=== PATIENT | female | born 1950 | race Caucasian/White ===

== ENCOUNTER 2023-10-13 06:52 | Outpatient (OUT) | payer MEDICARE, BC, SELFPAY ==
--- NOTE | 2023-10-13 09:05 | CA_ITS ---
Patient Name: HARJIT ULLOA MR#: [id number] : 1950 Exam Date: 10/13/2023 Ordering Doctor: ANA SALVADOR ECHOCARDIOGRAM REPORT PROCEDURE: CA ECHO LIMITED INDICATIONS: Heart failure with reduced ejection fraction COMPARISON: None. DESCRIPTION: Limited ECHOCARDIOGRAM Real-time transthoracic echocardiography with 2D and M-mode performed. QUALITY: Technical quality was good. 65 , 115#, BSA 1.56 m2 LEFT VENTRICLE: Normal chamber size. Normal left ventricular wall thickness. LV EF: Normal left ventricular systolic function is mildly reduced; visually estimated ejection fraction is 40 to 45%. The base of the inferior wall is akinetic. LEFT ATRIUM: Severe dilatation. RIGHT ATRIUM: Severe dilatation. RIGHT VENTRICLE: Normal chamber size. Normal systolic function. TRICUSPID VALVE: Normal mobility and thickness. MITRAL VALVE: Normal mobility and thickness. There is no mitral annular calcification. AORTIC VALVE: Normal trileaflet appearance. No visible sclerosis. Normal leaflet mobility. AORTIC ROOT: Normal diameter and appearance. PULMONIC VALVE: Normal thickness and mobility. PERICARDIUM: No evidence of pericardial effusion. IVC: IVC is dilated (2.2 cm), does not fully collapse. CONCLUSION: 1. Global left ventricular systolic function is mildly reduced; visually estimated ejection fraction is 40 to 45% 2. Segmental wall motion abnormalities are seen 3. Normal right ventricular size and systolic function 4. Biatrial enlargement A limited echocardiogram was performed Adult Echocardiography Procedure Report Left Ventricle LVEDD (3.7 - 5.6 cm): 5.04 cm LVESD (2.2 - 4.0 cm): 3.87 cm LVIVS thickness (0.6 - 1.2 cm): 0.72 cm LVPW thickness (0.5 - 1.0 cm): 0.91 cm LVOT Max Gradient: 1.29 mm[Hg] LVOT Area (cm2): 0.57 m/s Peak Velocity (LVOT): 0.57 m/s Mean Velocity (LVOT): 0.37 m/s LVOT Diameter 2.21 cm Left Atrium LA Volume Index (2D A2C): 62.05 ml/m2 Left Atrium Systolic Dimension: 3.33 cm Mitral Valve Mitral Valve E-Wave Peak Velocity: 0.79 m/s Right Ventricle Aorta AO Root Diam: 2.74 cm Ascending Ao Diam: 2.08 cm Aortic Valve AoV Area (Peak Tom): 2.07 cm2, 2.07 cm2 AoV Area (VTI): 1.99 cm2, 1.99 cm2 Peak Velocity(Antegrade Flow): 1.05 m/s Peak Gradient(Antegrade Flow): 4.43 mm[Hg] Mean Velocity(Antegrade Flow): 0.71 m/s Mean Gradient(Antegrade Flow): 2.26 mm[Hg] Velocity Time Integral: 19.28 cm Tricuspid Valve Peak Velocity (Regurgitant Flow): 3.17 m/s, 2.99 m/s, 2.96 m/s Pulmonic Valve Peak Velocity: 0.76 m/s Peak Gradient: 2.88 mm[Hg], 1.80 mm[Hg] Right Atrium Right Atrium Systolic Pressure: 53.96 ml, 53.96 ml Dictated by: Dani Dickerson M.D. on 10/13/2023 at 12:36 Approved by: Dani Dickerson M.D. on 10/13/2023 at 12:39
== END 2023-10-13 06:53 | disposition home or self-care (01) ==
LOC: CARD 06:59
PROVIDERS: PCP Family Medicine
DX: I50.20 Unspecified systolic (congestive) heart failure (principal); I25.10 Atherosclerotic heart disease of native coronary artery without angina pectoris
CPT/HCPCS: 93306; 93308

== ENCOUNTER 2023-10-15 16:31 | Emergency (ER) | payer MEDICARE, BC, SELFPAY ==
[2023-10-15] VITALS (9 sets, daily range): BP systolic 114–136; BP diastolic 67–100; PULSE 89–115; RESP 16–25; TEMP 36.8; O2SAT 96–100; BMI 18.6
--- NOTE | 2023-10-15 16:36 | ECG_ITS ---
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[employer]: : 1950 Requested By: Order Number: [id number] Reading MD: BEVERLY DOMINGO Measurements Intervals [place] Rate: 112 P: -[id number] ND: -[id number] QRS: 94 QRSD: 80 T: -55 QT: 300 QTc: 366 Interpretive Statements 30588 Atrial fibrillation with rapid ventricular response with aberrant conduction, or ventricular premature complexes [id number] depression, probably digitalis effect [id number] & Twave abnormality, probably digitalis effect 7102 Moderate right axis deviation 9150 abnormal ECG No previous ECG available for comparison Electronically Signed On 10-16-2023 6:38:31 EST by BEVERLY DOMINGO
--- OUTSIDE RECORDS SUMMARY | 2023-10-15 16:41 | XMS_ITS | CCD ---
Author Name Unknown Address [address] [place] [address] Organization [facility] Care Team Providers Care Video Game Technician Name Role Phone Peggy Nazario Primary Care Physician [phone] Micheline Sorto MD Unavailable Johan Henriquez MD Unavailable Peggy Nazario Primary Care Provider Peggy Nazario MD Unavailable Peggy Nazario MD Primary Care Provider [phone] Alea Harley MD Unavailable Alea Harley MD Unavailable PEGGY NAZARIO Attending Unavailable PEGGY NAZARIO Attending Unavailable CRUZ COVINGTON Attending Unavailable PEGGY NAZARIO Attending Unavailable PEGGY NAZARIO Attending Unavailable PEGGY NAZARIO Attending Unavailable RODOLFO BOO Attending Unavailable VÍCTOR KC Referring Unavailable Koby Masterson Attending Unavailable Jeff Cross Attending Unavailable Micheline BROOKS Referring Unavailable Micheline BROOKS Attending Unavailable Micheline BROOKS Attending Unavailable Micheline BROOKS R Attending Unavailable Micheline BROOKS R Referring Unavailable Armen, Parveen SElise Attending Unavailable Armen, Parveen SElise Attending Unavailable Koby Masterson Attending Unavailable Jeff Cross Attending Unavailable Layton Crawford Attending Unavailable NONE, XXXX Referring Unavailable Johan HENRIQUEZ Admitting Unavailable Johan HENRIQUEZ Attending Unavailable Johan HENRIQUEZ Admitting Unavailable Johan HENRIQUEZ Consulting Unavailable Johan HENRIQUEZ Attending Unavailable Johan HENRIQUEZ Referring Unavailable Johna HENRIQUEZ Consulting Unavailable Johan HENRIQUEZ Consulting Unavailable BROOKS, Micheline R Attending Unavailable BROOKS, Micheline R Referring Unavailable BROOKS, Michelien R Admitting Unavailable BROOKS, Micheline R Referring Unavailable BROOKS, Micheline R Admitting Unavailable BROOKS, Micheline R Attending Unavailable NazarioPeggy fernandez D Admitting Unavailable Nazario, Peggy Mcmillan Attending Unavailable Aravind, Peggy Mcmillan Referring Unavailable Nahid SERRATO Attending Unavailable Eb Goff Consulting Unavaila ble DO Noman PATTON R Admitting Unavailabl MD Eb Salgado Consulting Unava ilable Eb Goff Consulting Unavaila ble [facility], XXXX Consulting Unavailable ANA RIVAS Attending Unavailable NAZARIO, PEGGY DONOHUE Primary Care Unavailabl e ALEA HARLEY Referring Unavailable LE PANIAGUA Attending Unavailable AMINA PETERSEN Admitting Unavailable NAZARIO, PEGGY JAYDE Primary Care Unavailabl e ALEA HARLEY Referring Unavailable NAZARIO, PEGGY JAYDE Primary Care Unavailabl e NAZARIO, PETER JAYDE Primary Care Unavailabl e NITHYA, MICHELINE Referring Unavailable NITHYA, MICHELINE Attending Unavailable NAZARIO, [facility] JAYDE Primary Care Unavailabl e NITHYA, MICHELINE Referring Unavailable NAZARIO, PETER JAYDE Primary Care Unavailabl e NITHYA, MICHELINE Referring Unavailable EZRA GLEZM S Admitting Unavailable YECENIA GLEZ S Attending Unavailable NAZARIO, [facility] JAYDE Primary Care Unavailabl e GIANNI VILLALBA Attending Unavailable NAZARIO, [facility] JAYDE Primary Care Unavailabl e NITHYA, MICHELINE Referring Unavailable NAZARIO, PEGGY JAYDE Primary Care Unavailabl e ALEA HARLEY Attending Unavailable NITHYA, MICHELINE Referring Unavailable NAZARIO, [facility] JAYDE Primary Care Unavailabl e NITHYA, MICHELINE Referring Unavailable NAZARIO, [facility] Primary Care Unavailabl e NITHYA, MICHELINE Referring Unavailable VASAVADA, RAPHAEL P Referring Unavailable NAZARIO, PETER JAYDE Primary Care Unavailabl e VASAVADA, RAPHAEL P Attending Unavailable NAZARIO, [facility] JAYDE Primary Care Unavailabl e ALEA HARLEY Referring Unavailable Allergies Allergy Classification Reported Allergen(s) Allergy Type Date of Onset Reaction(s) Facility (20 sources) Cephalexin; Translations: [cephalexin] Drug Allergy 3 GI intolerance, Unknown [facility] (20 sources) Egg; Translations: [Eggs] Food allergy Unknown (qualifier value) [facility] (20 sources) Meperidine; Translations: [meperidine] Drug Allergy 0 Syncope (disorder), Other: See Comments [facility] (20 sources) Morphine; Translations: [morphine] Drug Allergy 3 Unknown [facility] (20 sources) Sulfonamides (Antibiotic); Translations: [sulfa drugs] Drug allergy Nausea [facility] (2 sources) Aspirin; Translations: [ASPIRIN] Drug Allergy 0 Other: See Comments [facility] (9 sources) Latex; Translations: [LATEX] Drug Intolerance 3 Rash, Hives [facility] (5 sources) Aluminum aspirin Drug Allergy 0 [facility] (5 sources) Amoxicillin Drug Allergy 3 Diarrhea [facility] (5 sources) Erythromycin Drug Allergy 3 Unknown [facility] (5 sources) Latex Propensity to adverse reactions 3 Hives, Rash [facility] (5 sources) Meperidine Drug Allergy 3 Unknown [facility] (12 sources) Sulfonamides (Antibiotic) Drug Allergy 3 GI intolerance, Intolerance [facility] (5 sources) WHEAT DEXTRIN Drug Allergy 3 [facility] (5 sources) WHEAT DEXTRIN Drug Allergy 3 [facility] (5 sources) Eggs Or Egg-Derived Products Drug Allergy 3 [facility] (8 sources) egg extract; Translations: [EGG] Drug Allergy 4 Intolerance, GI Upset [facility] (1 source) ALLERGIES NOT ON FILE; Translations: [ALLERGIES NOT ON FILE] Propensity to adverse reactions (disorder) [facility] (1 source) Meperidine; Translations: [Demerol HCl] Drug Allergy [facility] (1 source) Sulfonamides (Antibiotic); Translations: [SULFA (SULFONAMIDE ANTIBIOTICS)] Propensity to adverse reactions to drug (disorder) 3 [facility] Rep[facility] Medications Current Medications Medication Drug Class(es) Dates Sig (Normalized) Sig (Original) amoxicillin 500 mg / clavulanate 125 mg oral tablet (2 sources) Penicillin-class Antibacterial Start: 07-19-2023 End: 08-02-2023 Augmentin 500 mg-125 mg Tab 1 tab(s), Oral, q24hr for 14 day(s), 14 tab(s), Refill(s) 0, [facility] #[id number], 165, cm, 07/19/23 15:21:00 EST, Height/Length Dosing, 54.4, kg, 07/19/23 15:21:00 EST, Weight Dosing Start Date: 07/19/23 Stop Date: 08/02/23 Status: Ordered apixaban 5 mg oral tablet (20 sources) Factor Xa Inhibitor Start: 07-11-2023 take 1 tablet by mouth twice daily Eliquis 5 mg oral tablet 5 mg = 1 tab(s), Oral, BID, # 60 tab(s), Refills(s) 0, [id number], 165, cm, 07/02/23 21:30:00 EST, Height/Length Dosing, 55.7, kg, 07/02/23 21:30:00 EST, Weight Dosing Start Date: 07/11/23 Status: Ordered Start: 07-11-2023 take 1 tablet by antonio twice daily Eliquis 5 mg oral tablet 5 mg = 1 tab(s), Oral, BID, # 60 tab(s), Refills(s) 0, [id number], 165, cm, 07/02/23 21:30:00 EST, Height/Length Dosing, 55.7, kg, 07/02/23 21:30:00 EST, Weight Dosing Start Date: 07/11/23 Status: Ordered Start: 07-11-2023 take 1 tablet by antonio th twice daily Eliquis 5 mg oral tablet 5 mg = 1 tab(s), Oral, BID, # 60 tab(s), Refills(s) 0, Pharmacy: [facility] #[id number], 165, cm, 07/02/23 21:30:00 EST, Height/Length Dosing, 55.7, kg, 07/02/23 21:30:00 EST, Weight Dosing Start Date: 07/11/23 Status: Ordered Start: 07-11-2023 take 1 tablet by antonio twice daily Eliquis 5 mg oral tablet 5 mg = 1 tab(s), Oral, BID, # 60 tab(s), Refills(s) 0, [id number], 165, cm, 07/02/23 21:30:00 EST, Height/Length Dosing, 55.7, kg, 07/02/23 21:30:00 EST, Weight Dosing Start Date: 07/11/23 Status: Ordered Comment on above: Take 1 tablet by antonio th two times a day. aspirin 81 mg delayed release oral tablet (8 sources) Platelet Aggregation Inhibitor, Nonsteroidal Anti-inflammatory Drug Start: 3 take 1 tablet by mouth once daily aspirin 81 mg Oral EC Tab 81 mg = 1 tab(s), Oral, Daily, # 60 tab(s), Refills(s) 0, [id number], 165, cm, 07/02/23 21:30:00 EST, Height/Length Dosing, 55.7, kg, 07/02/23 21:30:00 EST, Weight Dosing Start Date: 07/05/23 Status: Ordered atorvastatin 40 mg oral tablet (20 sources) HMG-CoA Reductase Inhibitor Start: 3 End: 5 take 1 tablet by mouth at bedtime Lipitor 40 mg Tab 40 mg = 1 tab(s), Oral, Bedtime, # 60 tab(s), Refills(s) 0, [id number], 165, cm, 07/02/23 21:30:00 EST, Height/Length Dosing, 55.7, kg, 07/02/23 21:30:00 EST, Weight Dosing Start Date: 07/05/23 Status: Ordered Comment on above: Take 1 tablet by antonio th daily at bedtime. carvedilol 3.125 mg oral tablet (20 sources) alpha-Adrenergic Yolette, beta-Adrenergic Yolette Start: 4 take 1 tablet by mouth twice daily at mealtime carvedilol (COREG) 12.5 mg tablet Take 1 tablet by mouth two times a day with meals. 180 tablet 1 08/31/2023 Active Start: 07-05-2023 End: 10-19-2023 take 1 tablet by mouth twice daily carvedilol 3.125 mg Tab 3.125 mg = 1 tab(s), Oral, BID, X 14 day(s), # 28 tab(s), Refills(s) 0, Pharmacy: [facility] #[id number], 165, cm, 10/05/23 18:07:00 EST, Height/Length Dosing, 50.3, kg, 10/05/23 18:07:00 EST, Weight Dosing Start Date: 10/05/23 Stop Date: 10/19/23 Status: Ordered Comment on above: Take 1 tablet by antonio th two times a day with meals. Take 12.5 mg by mout h. dicyclomine hydrochloride 10 mg oral capsule (1 source) Anticholinergic Start: 07-01-20 End: 07-08-20 take 1 capsule by mouth four times daily Bentyl 10 mg Cap 10 mg = 1 cap(s), Oral, QID, X 7 day(s), # 14 cap(s), Refills(s) 0, Pharmacy: [facility] #[id number], 165, cm, 06/30/23 19:37:00 EST, Height/Length Dosing, 55.7, kg, 06/30/23 19:37:00 EST, Weight Dosing Start Date: 07/01/23 Stop Date: 07/08/23 Status: Ordered digoxin 0.125 mg oral tablet (20 sources) Cardiac Glycoside Start: 09-06-19 End: 12-05-19 take 0.5 tablet by mouth in the morning, then take 0.5 tablet by mouth once daily digoxin (Lanoxin) 125 MCG tablet Indications: Systolic congestive heart failure, unspecified HF chronicity (CMS/HCC) Take 0.5 tablets (62.5 mcg) by mouth in the morning. Take 1/2 a tab daily. 45 tablet 0 09/06/2023 12/05/2023 Active Start: 08-31-2023 digoxin (LANOX IN) 125 mcg (0.125 mg) tablet Take HALF tablet by mouth daily (not one complete tablet) 30 tablet 1 08/31/2023 Active Start: 07-05-2023 take 1 tablet by antonio th once daily digoxin 125 mcg (0.125 mg) Tab 125 mcg = 1 tab(s), Oral, Daily, # 60 tab(s), Refills(s) 0, Pharmacy: [facility] #[id number], 165, cm, 07/02/23 21:30:00 EST, Height/Length Dosing, 55.7, kg, 07/02/23 21:30:00 EST, Weight Dosing Start Date: 07/05/23 Status: Ordered Comment on above: Take HALF tablet by mouth daily (not one complete tablet) estradiol 0.1 mg/ml vaginal cream (11 sources) Estrogen Start: 04-26-2023 Estrace 0.1 mg/g Cream 0.5 gm, Vaginal, MonFri, 42.5 gm, Refill(s) 6 Start Date: 04/26/23 Status: Ordered Start: 03-20-2023 Estrace 0.1 mg /g Cream 1 gm, Vaginal, Once a day (at bedtime), 42.5 gm, Refill(s) 6, [facility], 165.1, cm, 01/28/23 21:34:00 EDT, Height/Length Dosing, 54.5, kg, 01/28/23 21:34:00 EDT, Weight Dosing Start Date: 03/20/23 Status: Ordered Start: 03-03-2022 estradiol 0.1 mg/g vaginal cream 1 gm, Vaginal, MonFri, # 42.5 gm, Refills(s) 6, Pharmacy: [facility], 165, cm, 03/03/22 10:04:00 EDT, Height/Length Dosing, 54, kg, 03/03/22 10:04:00 EDT, Weight Dosing Start Date: 03/03/22 Status: Ordered Start: 02-26-2021 estradiol 0.1 mg/g vaginal cream 1 gm, Vaginal, MonFri, # 42.5 gm, Refills(s) 6, Pharmacy: [facility], 165, cm, 02/23/21 13:24:00 EDT, Height/Length Dosing, 54, kg, 02/23/21 13:24:00 EDT, Weight Dosing Start Date: 02/26/21 Status: Ordered Start: 10-22-2012 estradiol 0.01 % (0.1 mg/g) vaginal cream Use a pea sized drop on finger, once every other day Tube 10/22/2012 Active Comment on above: Use a pea sized drop on finger, once every other day estradiol 0.1 mg/g vaginal cream (9 sources) Start: 03-03-2022 estradiol 0.1 mg/g vaginal cream 1 gm, Vaginal, MonFri, # 42.5 gm, Refills(s) 6, Pharmacy: [facility], 165, cm, 03/03/22 10:04:00 EDT, Height/Length Dosing, 54, kg, 03/03/22 10:04:00 EDT, Weight Dosing Start Date: 03/03/22 Status: Ordered Start: 02-26-2021 estradiol 0.1 mg/g vaginal cream 1 gm, Vaginal, MonFri, # 42.5 gm, Refills(s) 6, Pharmacy: [facility], 165, cm, 02/23/21 13:24:00 EDT, Height/Length Dosing, 54, kg, 02/23/21 13:24:00 EDT, Weight Dosing Start Date: 02/26/21 Status: Ordered furosemide 40 mg oral tablet (8 sources) Loop Diuretic Start: 07-05-2023 take 1 tablet by mouth once daily furosemide 40 mg Tab 40 mg = 1 tab(s), Oral, Daily, # 60 tab(s), Refills(s) 0, Pharmacy: [facility] #[id number], 165, cm, 07/02/23 21:30:00 EST, Height/Length Dosing, 55.7, kg, 07/02/23 21:30:00 EST, Weight Dosing Start Date: 07/05/23 Status: Ordered lisinopril 10 mg oral tablet (4 sources) Angiotensin Converting Enzyme Inhibitor Start: 09-26-2023 End: 12-25-2023 take 0.5 tablet by mouth once daily lisinopril (ZESTRIL) 10 mg tablet Indications: Non-rheumatic mitral regurgitation , Persistent atrial fibrillation (HCC) , Non-ischemic cardiomyopathy (HCC) , Chronic HFrEF (heart failure with reduced ejection fraction) (HCC) Take 0.5 tablets by mouth once daily. 45 tablet 0 09/26/2023 12/25/2023 Active Comment on above: Take 0.5 tablets by mouth once daily. LORazepam 1 mg oral tablet (20 sources) Benzodiazepine Start: 07-10-2023 End: 09-15-2023 LORazepam 1 mg Tab Refills(s) 0 Start Date: 07/19/23 Status: Ordered Start: 08-03-2011 take 1 tablet by antonio three times daily as needed for anxiety Ativan 0.5 mg Tab 0.5 mg = 1 tab(s), Oral, TID, PRN as needed for anxiety, Refills(s) 0 Start Date: 08/03/11 Status: Ordered Start: 12-14-2005 ATIVAN 0.5 MG TAB Take one(1) tablet two(2) times daily. 0 12/14/2005 Active Comment on above: Take one(1) tablet t wo(2) times daily. Take 1 mg by mouth e very 6 hours as needed for anxiety. losartan potassium 25 mg oral tablet (8 sources) Angiotensin 2 Receptor Yolette Start: 023 take 1 tablet by mouth once daily losartan 25 mg Tab 25 mg = 1 tab(s), Oral, Daily, # 60 tab(s), Refills(s) 0, Pharmacy: [facility] #[id number], 165, cm, 07/02/23 21:30:00 EST, Height/Length Dosing, 55.7, kg, 07/02/23 21:30:00 EST, Weight Dosing Start Date: 07/05/23 Status: Ordered omeprazole 40 mg delayed release oral capsule (5 sources) Proton Pump Inhibitor Start: End: take 1 capsule by mouth before mealtime omeprazole (PriLOSEC) [address] capsule Indications: Gastroesophageal reflux disease without esophagitis Take 1 capsule (40 mg) by mouth in the morning. Take before meals. Do not crush or chew.. 30 capsule 11 09/12/2023 09/11/2024 Active ondansetron 4 mg disintegrating oral tablet (5 sources) Serotonin-3 Receptor Antagonist Start: 023 take 1 tablet by mouth every eight hours as needed ondansetron ODT (Zofran-ODT) 4 MG disintegrating tablet Take 4 mg by mouth every 8 (eight) hours if needed. 0 07/01/2023 Active pantoprazole 40 mg delayed release oral tablet (4 sources) Proton Pump Inhibitor Start: End: take 1 tablet by mouth once daily pantoprazole DR (PROTONIX) 40 mg tablet Indications: Non-rheumatic mitral regurgitation , Persistent atrial fibrillation (HCC) , Non-ischemic cardiomyopathy (HCC) , Chronic HFrEF (heart failure with reduced ejection fraction) ([facility]) Take 1 tablet by mouth once daily. 90 tablet 0 09/26/2023 12/25/2023 Active Comment on above: Take 1 tablet by antonio th once daily. Tobramycin (1 source) Aminoglycoside Antibacterial Start: End: take 1 drop(s) into the eye(s) four times daily tobramycin ophthalmic 0.3% solution 1 drop(s), Eye-Both, QID for 7 day(s), 5 mL, Refill(s) 0, [facility] #[id number], 165, cm, 12/24/21 17:41:00 EDT, Height/Length Dosing, 54, kg, 12/24/21 17:41:00 EDT, Weight Dosing Start Date: 12/24/21 Stop Date: 12/31/21 Status: Ordered Zofran ODT 4 mg Tab-Dis (9 sources) Start: take 1 tablet by mouth every eight hours Zofran ODT 4 mg Tab-Dis 4 mg = 1 tab(s), Oral, q8hr, # 12 tab(s), Refills(s) 0, Pharmacy: [facility] #[id number], 165, cm, 06/30/23 19:37:00 EST, Height/Length Dosing, 55.7, kg, 06/30/23 19:37:00 EST, Weight Dosing Start Date: 07/01/23 Status: Ordered Completed/Discontinued Medications Medication Drug Class(es) Dates Sig (Normalized) Sig (Original) ciprofloxacin 500 mg oral tablet (7 sources) Quinolone Antimicrobial Start: 04-26-2023 Cipro 500 mg Tab 500 mg = 1 tab(s), Oral, As Directed, Patient to take 1 tab the day before procedure and the 2nd tab the day of procedure once completed, # 2 tab(s), Refills(s) 0, Pharmacy: [facility] #[id number], 165, cm, 04/26/23 15:23:00 EDT, Height/Length Dosing, 54.7, kg, 04/26/23 15:23:00 EDT, Weight Dosing Start Date: 04/26/23 Status: Ordered Start: 10-14-2022 take 1 tablet by antonio once daily Cipro 500 mg Tab 500 mg = 1 tab(s), Oral, Daily, Take 1 tablet the day before the procedure and 1 tablet after the procedure, # 2 tab(s), Refills(s) 0, Pharmacy: [facility], 165, cm, 10/03/22 14:34:00 EST, Height/Length Dosing, 54.7, kg, 10/03/22 14:34:00 E... Start Date: 10/14/22 Status: Ordered Start: 03-03-2022 take 1 tablet by antonio once daily Cipro 500 mg Tab 500 mg = 1 tab(s), Oral, As Directed, Take 1 tablet day before procedure, and then 1 tablet day of procedure after procedure, # 2 tab(s), Refills(s) 0, Pharmacy: [facility], 165, cm, 03/03/22 10:04:00 EDT, Height/Length Dosing, 54, kg, 02/12... Start Date: 03/03/22 Status: Ordered loperamide hydrochloride 2 mg oral capsule (1 source) Opioid Agonist Start: 10-24-2017 take 2 capsules by mouth once loperamide (IMODIUM) 2 mg cap(s) Indications: Screening for colon cancer Take 2 capsules by mouth one time only for 1 dose. Take one hour after last bowel movement 2 capsule 0 10/24/2017 Active Comment on above: Take 2 capsules by [facility] one time only for 1 dose. Take one hour after last bowel movement metoprolol 1 mg/mL Inj (1 source) Start: 07-07-2023 End: 07-07-2023 inject 5 mg intravenously once metoprolol 1 mg/mL Inj 5 mg = 5 mL, Injection, IV Push, Once, Stop date 07/07/23 10:02:18 AM EST, STAT, Start date 07/07/23 9:41:00 AM EST, 07/07/23 9:41:00 EST Start Date: 07/07/23 Stop Date: 07/07/23 Status: Completed polyethylene glycol 3350 92580 mg powder for oral solution (15 sources) Osmotic Laxative Start: 08-31-2023 polyethylene glycol 3350 17 gram/dose powder Take 17 g by mouth once daily as needed. Dissolve dose in 4 - 8 ounces of liquid and take as directed. 510 g 1 08/31/2023 Active Start: 07-05-2023 take 17 g by mouth once daily polyethylene glycol 3350 17 gram packet 17 gm, Oral, Daily, # 255 gm, Refills(s) 0, Pharmacy: [facility] #[id number], 165, cm, 07/02/23 21:30:00 EST, Height/Length Dosing, 55.7, kg, 07/02/23 21:30:00 EST, Weight Dosing Start Date: 07/05/23 Status: Ordered Comment on above: Take 17 g by mouth o nce daily as needed. Dissolve dose in 4 - 8 ounces of liquid and take as directed. spironolactone 25 mg oral tablet (12 sources) Aldosterone Antagonist Start: 08-31-19 End: 09-05-19 take 0.5 tablet by mouth once daily spironolactone (ALDACTONE) 25 mg tablet Take a half tablet by mouth once daily. 30 tablet 1 08/31/2023 Active Comment on above: Take a half tablet b y mouth once daily. tamsulosin hydrochloride 0.4 mg oral capsule (1 source) alpha-Adrenergic Yolette Start: 10-19-19 13 take 1 capsule by mouth once daily at bedtime tamsulosin 0.4 mg Cp24 Take 1 capsule by mouth daily at bedtime. 30 capsule 3 10/18/2012 Active Comment on above: Take 1 capsule by mo [facility] daily at bedtime. valsartan 80 mg oral tablet (6 sources) Angiotensin 2 Receptor Yolette Start: 08-31-19 End: 09-26-19 24 take 1 tablet by mouth once daily valsartan (DIOVAN) 80 mg tablet Take 1 tablet by mouth once daily. 90 tablet 1 08/31/2023 09/26/2023 Discontinued (Course of therapy completed) Comment on above: Take 1 tablet by antonio once daily. Problems Active Problems Problem Classification Problem Date Documented Da te Episodic/Chronic Abdominal pain (20 sources) Suprapubic pain; Translations: [Abdominal pain] Onset: 3 01-22-2020 Episodic Adjustment disorders (7 sources) Adjustment disorder with mixed anxiety and depressed mood; Translations: [Adjustment disorder with mixed anxiety and depressed mood] Onset: 4 08-29-2023 Chronic Anxiety disorders (20 sources) Anxiety; Translations: [Anxiety disorder] Onset: 3 01-23-2019 Chronic Cardiac dysrhythmias (13 sources) Unspecified atrial fibrillation; Translations: [Persistent atrial fibrillation] Onset: 3 Chronic Coagulation and hemorrhagic disorders (2 sources) Thrombophilia; Translations: [Other thrombophilia] 09-26-2023 Chronic Congestive heart failure; nonhypertensive (3 sources) Acute systolic heart failure; Translations: [Acute systolic (congestive) heart failure] Onset: 3 Chronic Coronary atherosclerosis and other heart disease (1 source) Coronary atherosclerosis; Translations: [Atherosclerotic heart disease of [place] coronary artery without angina pectoris] Onset: 3 Chronic E Codes: Adverse effects of medical drugs (1 source) Adverse reaction to biological substance; Translations: [Adverse effect of unspecified drugs, medicaments and biological substances, initial encounter] Onset: 4 Episodic Esophageal disorders (20 sources) Gastroesophageal reflux disease; Translations: [Gastroesophageal reflux disease without esophagitis] Onset: 3 01-30-2014 Chronic Essential hypertension (8 sources) Essential hypertension; Translations: [Essential (primary) hypertension] Onset: 4 08-27-2023 Chronic Genitourinary symptoms and ill-defined conditions (20 sources) Delay when starting to pass urine; Translations: [Dysuria] Onset: 3 07-29-2020 Episodic Heart valve disorders (20 sources) Non-rheumatic mitral regurgitation ; Translations: [Nonrheumatic mitral (valve) insufficiency] Onset: 3 Chronic Inflammation; infection of eye (except that caused by tuberculosis or sexually transmitteddisease) (1 source) Toxic conjunctivitis; Translations: [Acute toxic conjunctivitis, bilateral] Onset: 2 Episodic Malaise and fatigue (5 sources) Chronic fatigue syndrome; Translations: [Chronic fatigue syndrome] Onset: 3 01-30-2023 Chronic Menopausal disorders (16 sources) Atrophic vaginitis; Translations: [Postmenopausal atrophic vaginitis] Onset: 3 Chronic Noninfectious gastroenteritis (20 sources) Acute gastroenteritis; Translations: [Noninfective gastroenteritis and colitis, unspecified] Onset: 3 06-09-2019 Episodic Nutritional deficiencies (9 sources) Deficiency of macronutrients; Translations: [Unspecified severe protein-calorie malnutrition] Onset: 4 08-30-2023 Chronic Open wounds of head; neck; and trunk (20 sources) Superficial laceration of face; Translations: [Laceration without foreign body of other part of head, initial encounter] Onset: 3 01-27-2018 Episodic Other aftercare (1 source) Long-term current use of drug therapy; Translations: [Other [facility] (current) drug therapy] Onset: 3 Episodic Other aftercare (1 source) Long-term 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; Translations: [nursing home (current) use of 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s] 09-26-2023 Episodic Other aftercare (2 sources) Post-discharge follow-up; Translations: [Encounter for follow-up examination after completed treatment for conditions other than malignant neoplasm] 09-18-2023 Episodic Other circulatory disease (1 source) Disorder of arteries and arterioles, unspecified; Translations: [Disorder of artery or arteriole (HCC)] Onset: 4 Chronic Other circulatory disease (1 source) Other specified symptoms and signs involving the circulatory and respiratory systems; Translations: [Other specified symptoms and signs involving the circulatory and respiratory systems] Onset: 4 Episodic Other diseases of bladder and urethra (20 sources) Urethral stricture; Translations: [Other urethral stricture, female] Onset: 2 07-29-2020 Episodic Other diseases of bladder and urethra (1 source) Unspecified urethral stricture, female; Translations: [Stricture of female urethra, unspecified stricture type] Onset: 4 Episodic Other diseases of kidney and ureters (1 source) Disorder of kidney and/or ureter; Translations: [Disorder of kidney and ureter, unspecified] Onset: 3 Episodic Other diseases of kidney and ureters (15 sources) Kidney lesion; Translations: [Disorder of kidney and ureter, unspecified] Onset: 3 04-26-2023 Episodic Other gastrointestinal disorders (2 sources) Constipation, unspecified; Translations: [Constipation, unspecified] Onset: 3 Episodic Other injuries and conditions due to external causes (20 sources) Injury of nose; Translations: [Unspecified injury of nose, initial encounter] Onset: 3 01-27-2018 Episodic Other nervous system disorders (1 source) Tremor; Translations: [Tremor, unspecified] Onset: 4 Episodic Other non-traumatic joint disorders (1 source) Pain of right shoulder joint; Translations: [Pain in right shoulder] Onset: 3 Episodic Other screening for suspected conditions (not mental disorders or infectious disease) (2 sources) Blood chemistry abnormal; Translations: [Other specified abnormal findings of blood chemistry] Onset: 3 Episodic Other upper respiratory disease (5 sources) Seasonal allergy; Translations: [Other seasonal allergic rhinitis] Onset: 3 01-30-2023 Chronic Staci-; endo-; and myocarditis; cardiomyopathy (except that caused by tuberculosis or sexually transmitted disease) (12 sources) Cardiomyopathy; Translations: [Other cardiomyopathies] Onset: 4 08-27-2023 Chronic Peripheral and visceral atherosclerosis (12 sources) Atherosclerosis of aorta; Translations: [Atherosclerosis of aorta] Onset: 8 01-30-2023 Chronic Pleurisy; pneumothorax; pulmonary collapse (1 source) Pleural effusion; Translations: [Pleural effusion, not elsewhere classified] Onset: 3 Episodic Prolapse of female genital organs (20 sources) Cystocele; Translations: [Uterovaginal prolapse, unspecified] Onset: 3 08-24-2020 Chronic Residual codes; unclassified (1 source) History of cardioversion; Translations: [Personal history of other medical treatment] 09-26-2023 Episodic Residual codes; unclassified (1 source) Other specified postprocedural states; Translations: [H/O major abdominal surgery] Onset: 4 Episodic Screening and history of mental health and substance abuse codes (20 sources) Ex-smoker; Translations: [Personal history of nicotine dependence] Onset: 3 01-22-2020 Episodic Spondylosis; intervertebral disc disorders; other back problems (1 source) Low back pain; Translations: [Low back pain, unspecified] Onset: 3 Episodic Superficial injury; contusion (2 sources) Contusion of forearm; Translations: [Contusion of right forearm, initial encounter] Onset: 2 Episodic Unclassified (20 sources) Finding of sensation of bladder 08-24-2020 Varicose veins of lower extremity (2 sources) Pain due to varicose veins of lower extremity; Translations: [Varicose veins of unspecified lower extremity with pain] Onset: 2 Episodic Viral infection (1 source) Viral disease; Translations: [Viral infection, unspecified] Episodic Past or Other Problems Problem Classification Problem Date Documented Da te Episodic/Chronic Intestinal obstruction without hernia (13 sources) Intestinal obstruction; Translations: [Unspecified intestinal obstruction, unspecified as to partial versus complete obstruction] Onset: 03-13-2009 03-13-2009 Episodic Miscellaneous mental health disorders (5 sources) Transient insomnia; Translations: [Adjustment insomnia] Onset: 01-30-2023 01-30-2023 Episodic Other female genital disorders (5 sources) Disorder of vagina; Translations: [Stricture and atresia of vagina] Onset: 01-30-2023 01-30-2023 Episodic Unclassified (1 source) Exposure to 2019 novel coronavirus; Translations: [Contact with and (suspected) exposure to COVID19] Results Test Name Value Interpretation Reference Range Facility Discharge Instructionson Discharge Instructions [id number]# 1.00TIFF [facility] ED Note-Physicianon 10-06-19 ED Note-Physician [facility] Comment on above: Result Comment: Elec tronically Signed By: Nica Knox PA-C\.br\Date and Time Signed: 10/05/23 21:57 EST\.br\Electronically Co-Signed By: Koby Masterson DO.br\Date and Time Co-Signed: 10/06/23 00:54 EST Consent for Treatmenton 09-15 Consent for Treatment [id number]#1 .00TIFF [facility] ED Clinical Summaryon 2023 ED Clinical Summary Normal [place] ED Patient Education Noteon 10-05-2023 ED Patient Education Note Normal [facility] ED Patient Summaryon 024 ED Patient Summary Normal [facility] CNPNon 10-02-2023 CNPN Telephone (CARCMN) ELIFASYA I ([id number]) 1950 F Date Time Provider Department 10/02/23 ALEA HARLEY CARCIN During your visit today, we recorded the following information about you: Junito Mendes 10/02/2023 9:41 AM Signed October 02, 2023 Patient Contact Number: [phone] Patient last seen within the last year: Yes Date of last office visit: 09/26/2023 Reason For Call: Test Results; pt requesting to go over 09/26 labs Physician: Alea Harley MD Patient was informed that non-urgent calls may be returned within the next three business days. Yes Kim Whitten, RN 10/03/2023 1:[address] Harley, kidney function looks good. Things are stable. Heart failure peptide still elevated but working on getting on proper regimen. Stay the course. Harriet Albarado, ROCÍO 10/06/2023 11:31 AM Signed I spoke with patient to review labs. Patient states that she was in the ED at [facility] for stomach pain and dizziness. She states that her carvedilol down to previous dose, chart review shows carvedilol 3.125mg. I will updated Adonay Rivas and Dr Harley. Harriet Albarado, Ana Ward APRN.WEAVING TEACHER 10/06/2023 2:59 PM Signed Noted. Will address at upcoming scheduled appointment. Ana Rivas APRN.WEAVING TEACHER October 06, 2023 2:59 PM Allergies As of Date: 10/02/2023 Noted Allergy Reaction CEPHALEXIN 01/30/2023 16 - Unknown DEMORAL (MEPERIDINE) 05/14/2010 14 - Other: See Comments Comments: Patient does not know if she is allergic but know she is not suppose to take it. EGG 08/29/2023 5 - Intolerance 8 - GI Upset Comments: Per patient. LATEX 09/26/2012 2 - Rash 4 - Hives MORPHINE 04/12/2023 16 - Unknown Comments: Other Reaction(s): Unknown cause SULFA (SULFONAMIDE ANTIBIOTICS) 07/25/2023 5 - Intolerance Date Reviewed: 09/26/2023 Reviewed by: Chrissy Roberts OCCA - Fully Assessed Reason for Visit: Results [95] Prescriptions as of 10/06/2023 - pantoprazole DR (PROTONIX) 40 mg tablet Take 1 tablet by mouth once daily. - lisinopril (ZESTRIL) 10 mg tablet Take 0.5 tablets by mouth once daily. - carvedilol (COREG) 12.5 mg tablet Take 12.5 mg by mouth. - apixaban (ELIQUIS) 5 mg tab(s) Take 1 tablet by mouth two times a day. - atorvastatin (LIPITOR) 40 mg tablet Take 1 tablet by mouth daily at bedtime. - carvedilol (COREG) 12.5 mg tablet Take 1 tablet by mouth two times a day with meals. - polyethylene glycol 3350 17 gram/dose powder Take 17 g by mouth once daily as needed. Dissolve dose in 4 - 8 ounces of liquid and take as directed. - spironolactone (ALDACTONE) 25 mg tablet Take a half tablet by mouth once daily. - digoxin (LANOXIN) 125 mcg (0.125 mg) tablet Take HALF tablet by mouth daily (not one complete tablet) - LORazepam (ATIVAN) 1 mg tablet Take 1 mg by mouth every 6 hours as needed for anxiety. Problem List As Of Date 10/02/2023 Noted Resolved INTESTINAL OBSTRUCT NOS [K56.609] 03/13/2009 Incomplete bladder emptying [R33.9] 09/26/2012 Non-rheumatic mitral regurgitation [I34.0] 07/25/2023 Nonrheumatic tricuspid valve regurgitation [I36*07/25/2023 Mitral valve regurgitation due to cardiomyopath* 024 Acute on chronic systolic congestive heart fail*08/26/2023 08/27/2023 Cardiomyopathy, nonischemic (HCC) [I42.8] 08/26/2023 Atrial fibrillation, persistent (HCC) [I48.19] 08/27/2023 Anxiety [F41.9] 08/27/2023 Urethral stricture [N35.919] 08/27/2023 Primary hypertension [I10] 08/27/2023 Adjustment disorder with mixed anxiety and depr*08/29/2023 Generalized anxiety disorder [F41.1] 08/29/2023 Severe protein-calorie malnutrition (HCC) [E43] 08/30/2023 Encounter Status:Closed by JUNITO MENDES on 10/02/23 Normal [facility] Echocardiographyon Echocardiography [id number]#1 .00TIFF Normal [facility] Outside Cardiovascularon Outside Cardiovascular [id number] [id number]#1 .00TIFF Normal [facility] Outside Cardiovascular [id number] [id number]#1 .00TIFF Normal [facility] Outside Cardiovascular [id number] 4020 [id number]#1 .00TIFF Normal [facility] Outside Operativeon 09-27-19 24 Outside Operative [id number]#1 .00TIFF Normal [facility] Outside Operative [id number]#1 .00TIFF Normal [facility] Outside Radiologyon 09-27-19 24 Outside Radiology [id number]#1 .00TIFF Normal [facility] Outside Radiology [id number]#1 .00TIFF Normal [facility] CBC panel Auto (Bld)on 09-26 Erythrocyte distribution width (RBC) [Ratio] 13.2 % Normal 11.5-15.0 [facility] Comment on above: Order Comment: Speci men Type: BLOOD SPECIMENOrdering Facility: [facility] Address: [address] [place] [address] Performed By: #### 5 8410-2 ####[facility] [id number] [place] [address] [place] Hematocrit (Bld) [Volume fraction] 38.1 % Normal 36.0-46.0 [facility] Comment on above: Order Comment: Speci men Type: BLOOD SPECIMENOrdering Facility: [facility] Address: [address] [place] [address] Performed By: #### 5 8410-2 ####[facility] [id number] [place] [address] [place] Hemoglobin (Bld) [Mass/Vol] 12.2 g/dL Normal 11.5-15.5 [facility] Comment on above: Order Comment: Speci men Type: BLOOD SPECIMENOrdering Facility: [facility] Address: [address] [place] [address] Performed By: #### 5 8410-2 ####[facility] [id number] [place] [address] [place] MCH (RBC) [Entitic mass] 29.5 pg Normal 26.0-34.0 [facility] Comment on above: Order Comment: Speci men Type: BLOOD SPECIMENOrdering Facility: [facility] Address: [address] [place] [address] Performed By: #### 5 8410-2 ####[facility] [id number] [place] [address] [place] MCHC (RBC) [Mass/Vol] 32.0 g/dL Normal 30.5-36.0 [facility] Comment on above: Order Comment: Speci men Type: BLOOD SPECIMENOrdering Facility: [facility] Address: [address] [place] [address] Performed By: #### 5 8410-2 ####[facility] [id number] [place] [address] [place] MCV (RBC) [Entitic vol] 92.0 fL Normal 80.0-100.0 [facility] Comment on above: Order Comment: Speci men Type: BLOOD SPECIMENOrdering Facility: [facility] Address: [address] [place] [address] Performed By: #### 5 8410-2 ####[facility] [id number] [place] [address] [place] Nucleated RBC (Bld) [#/Vol] 10*3/uL Normal <0.01 [facility] Comment on above: Order Comment: Speci men Type: BLOOD SPECIMENOrdering Facility: [facility] Address: [address] [place] [address] Performed By: #### 5 8410-2 ####[facility] [id number] [place] [address] [place] Platelet mean volume (Bld) [Entitic vol] 10.5 fL Normal 9.0-12.7 [facility] Comment on above: Order Comment: Speci men Type: BLOOD SPECIMENOrdering Facility: [facility] Address: [address] [place] [address] Performed By: #### 5 8410-2 ####[facility] [id number] [place] [address] [place] Platelets (Bld) [#/Vol] 195 10*3/uL Normal 150-400 [facility] Comment on above: Order Comment: Speci men Type: BLOOD SPECIMENOrdering Facility: [facility] Address: [address] [place] [address] Performed By: #### 5 8410-2 ####[facility] [id number] [place] [address] [place] RBC (Bld) [#/Vol] 4.14 10*6/uL Normal 3.90-5.20 [facility] Comment on above: Order Comment: Speci men Type: BLOOD SPECIMENOrdering Facility: [facility] Address: [address] [place] [address] Performed By: #### 5 8410-2 ####[facility] [id number] [address] WBC (Bld) [#/Vol] 6.03 10*3/uL Normal 3.70-11.00 [facility] Comment on above: Order Comment: Speci men Type: BLOOD SPECIMENOrdering Facility: [facility] Address: [address] [place] [address] Performed By: #### 5 8410-2 ####[facility] [id number] [address] [place] [facility] CBC PNL BLD AUTOon 09-26 [facility] NRBC # [facility]LD [facility]O <0.01 [facility] PLATELET # BLD AUTO 195 [facility] PMV BLD AUTO 10.5 fL 9.0 - 12.7 fL [facility] WBC # BLD AUTO 6.03 [facility] Erythrocyte distribution width (RBC) [Ratio] 13.2 % 11.5 - 15.0 % [facility] Hematocrit (Bld) [Volume fraction] 38.1 % 36.0 - 46.0 % [facility] Hemoglobin (Bld) [Mass/Vol] 12.2 g/dL 11.5 - 15.5 g/dL [facility] MCH (RBC) [Entitic mass] 29.5 pg 26.0 - 34.0 pg [facility] MCHC (RBC) [Mass/Vol] 32.0 g/dL 30.5 - 36.0 g/dL [facility] MCV (RBC) [Entitic vol] 92.0 fL 80.0 - 100.0 fL [facility] RBC (Bld) [#/Vol] 4.14 10*6/uL 3.90 - 5.2 0 m/uL [facility] Specimen Type: BLOOD SPECIMEN [facility] Address: [address], [place] [address] Original Ordering Provider: ALEA GUZMAN [facility] Richard 09-26-2023 CN Office Visit (UROLMN ) ASYA ASENCIO I ([id number]) 1950 F Date Time Provider Department 09/26/23 2:40 PM RAPHAEL GOLDSMITH During your visit today, we recorded the following information about you: Raphael Goldsmith MD 09/26/2023 4:38 PM Signed [facility] H[facility] CHIEF COMPLAINT: Urethral Stricture HPI : 73 year old female hx sigmoid colectomy (1996), NICM, HTN, Afib w RBR, MR, TR, HF, and urethral stricture s/p recent dilation 04/2023 She initially had difficulty urinating in 2012 and was following with Dr. Tinsley. At that time she described feelings of incomplete emptying, intermittency, hesitancy. Recently, she complains of urethral (possibly vaginal?) pain. She reports a sudden stop in urination seemingly mid-flow. She will then Valsalva with an additional ~100 cc coming out. Sometimes she will Valsalva with no urine returning. She will wait for a few minutes then will continue voiding. She denies dysuria, hematuria, incontinence, pelvic pain. She has underwent numerous urethral dilations but after her most recent one, she reports experiencing some retention. HISTORIES: PAST MEDICAL HISTORY Diagnosis Date Anxiety state, unspecified GERD (gastroesophageal reflux disease) Heart murmur Hemorrhoids HTN (hypertension) Hypothyroid IBS (irritable bowel syndrome) Mitral regurgitation Proctocolitis Rectal pain Tricuspid regurgitation Urethral stricture PAST SURGICAL HISTORY Procedure Laterality Date EXC CYST/ABERRANT BREAST TISSUE OPEN 1/> LESION PAST SURGICAL HISTORY OF 1995 tailbone surgery TOTAL ABDOMINAL HYSTERECT W/WO RMVL TUBE OVARY Hysterectomy, MIR UNLISTED PROCEDURE ABDOMEN PERITONEUM AND OMENTUM 1996 Sigmoid colectomy with primary end-to-end colorectal anastomosis. MEDICATIONS: Current Outpatient Medications on File Prior to Visit Medication Sig apixaban (ELIQUIS) 5 mg tab(s) Take 1 tablet by mouth two times a day. atorvastatin (LIPITOR) 40 mg tablet Take 1 tablet by mouth daily at bedtime. carvedilol (COREG) 12.5 mg tablet Take 1 tablet by mouth two times a day with meals. polyethylene glycol 3350 17 gram/dose powder Take 17 g by mouth once daily as needed. Dissolve dose in 4 - 8 ounces of liquid and take as directed. spironolactone (ALDACTONE) 25 mg tablet Take a half tablet by mouth once daily. digoxin (LANOXIN) 125 mcg (0.125 mg) tablet Take HALF tablet by mouth daily (not one complete tablet) LORazepam (ATIVAN) 1 mg tablet Take 1 mg by mouth every 6 hours as needed for anxiety. No current facility-administered medications on file prior to visit. PHYSICAL EXAM: ABDOMEN: Soft, non-tender PVR: 45 mL via bladder US UA: Pending IMPRESSION AND PLAN: ASSESSMENT/PLAN: 1. Feeling of incomplete bladder emptying - ICD9: 788.21, ICD10: R39.14 Patient without retention, feelings of urethral pain, plan for cystoscopy with possible urethral dilation Krysta Zhu MD Electronically signed STAFF NOTE: I have personally modified the HPI AND ROS, performed a PE AND a face to face diagnostic evaluation on this patient AND discussed the above plan. Signed: Raphael Goldsmith MD [facility] Electronically signed Chrissy Roberts OCCA 09/26/2023 2:36 PM Signed Post Void Residual done on patient with 45 cc residual volume remaining. notified. CARISSA Ferrell Referring Provider: RAPHAEL GOLDSMITH [[id number]] Allergies As of Date: 09/26/2023 Noted Allergy Reaction CEPHALEXIN 01/30/2023 16 - Unknown DEMORAL (MEPERIDINE) 05/14/2010 14 - Other: See Comments Comments: Patient does not know if she is allergic but know she is not suppose to take it. EGG 08/29/2023 5 - Intolerance 8 - GI Upset Comments: Per patient. LATEX 09/26/2012 2 - Rash 4 - Hives MORPHINE 04/12/2023 16 - Unknown Comments: Other Reaction(s): Unknown cause SULFA (SULFONAMIDE ANTIBIOTICS) 07/25/2023 5 - Intolerance Date Reviewed: 09/26/2023 Reviewed by: Chrissy Roberts OCCA - Fully Assessed Reason for Visit: Consult [173] Primary Visit Diagnosis:Feeling of incomplete bladder emptying [R39.14] Other Visit Diagnoses:Stricture of female urethra, unspecified stricture type [N35.92] Severe protein-calorie malnutrition (HCC) [E43] Order(s):CYSTO.PANEND O [28013QPI] Order #: [id number] Prescriptions as of 09/26/2023 - pantoprazole DR (PROTONIX) 40 mg tablet Take 1 tablet by mouth once daily. - lisinopril (ZESTRIL) 10 mg tablet Take 0.5 tablets by mouth once daily. - carvedilol (COREG) 12.5 mg tablet Take 12.5 mg by mouth. - apixaban (ELIQUIS) 5 mg tab(s) Take 1 tablet by (more content not included)... Normal [facility] CNOV Office Visit (CARCMN ) ASYA ASENCIO I ([id number]) 1950 F Date Time Provider Department 09/26/23 9:00 AM ANA RIVAS During your visit today, we recorded the following information about you: Pulse Respiration Blood pressure Weight 72/minute 20/minute 118/57 50.8 kg Height 1.651 m Ana Rivas APRN.CNP 09/26/2023 10:41 AM Signed [facility] Department of Cardiovascular Medicine SECTION OF CLINICAL CARDIOLOGY OUTPATIENT VISIT DATE September 26, 2023 OUTPATIENT VISIT TYPE ESTABLISHED PRIMARY CARE PHYSICIAN: Peggy Nazario MD [address] [place] [address] REFERRING PHYSICIAN: Dr. Alea Harley [address] [facility] [address] CHIEF COMPLAINT: Established Patient HISTORY OF PRESENT ILLNESS: Ms. Asencio is a 73 year old female who presents today for a cardiovascular medicine follow-up visit. She is an established patient of Dr. Harley. Patients past medical history is significant for: HFrEF (40-45%) Atrial fibrillation, persistent on apixaban, digoxin and carvedilol S/p KRYSTINA DCCV on 08/28/2023 Heart murmur Tricuspid regurgitation Moderate-severe mitral valve regurgitation Essential hypertension IBS Hypothyroid Anxiety GERD Ms. Asencio was last evaluated in office by Dr. Harley on 08/23/2023. Impression below for further reference: Ms. Asencio is a 73 year old female with a recent history of atrial fibrillation and RVR while undergoing management of urinary bladder outlet obstruction. Onset is not fully known but since her hospitalization in mid to late June it has been persistent and it would seem better rate controlled. In association with this she has been found to have moderate to severe central MR in the setting of a dilated and diffusely hypo-contractile LV with EF estimates on the order of 30-40% depending on whether she was on rate modulating Rx or off suggesting that in the absence of significant CAD this is more likely tachy mediated than primary. The issue now is whether there is indication to address her MV - ie. surgical repair plus MAZE or optimized medical Rx such as regaining SR, further LV unloading (low dose ARNI vis a vis ARB), if cost permissive an SGLT-2 inh, and depending on resultant nature of LV performance then percutaneous repair - mitral clip. Great deal to sort out at the moment. She is adamantly against more medications making what is already a difficult challenge all the more difficult. Nonetheless, she has additional testing set up including a repeat echo later on today which will I think clarify further management a bit better. Will review with Dr. Sorto in [facility]. He will be seeing her later today, final recommendations at that time. Interval Events since MICHAEL: Here today for routine follow up re: GDMT for HFrEF, mitral regurgitation, AF Recent local hospital admission re: allergic reaction to valsartan Evaluated by Dr. Sorto in [facility] re: candidacy for cardiac surgery. Deemed high risk with recommendations for TMVr/TTVr input. Taking all medications as prescribed. She denies abdominal distention, chest pain, orthopnea, cough, edema, palpitations, PND, lightheadedness or syncope. PAST MEDICAL HISTORY Diagnosis Date Anxiety state, unspecified GERD (gastroesophageal reflux disease) Heart murmur Hemorrhoids HTN (hypertension) Hypothyroid IBS (irritable bowel syndrome) Mitral regurgitation Proctocolitis Rectal pain Tricuspid regurgitation Urethral stricture PAST SURGICAL HISTORY Procedure Laterality Date EXC CYST/ABERRANT BREAST TISSUE OPEN LESION PAST SURGICAL HISTORY OF 1995 tailbone surgery TOTAL ABDOMINAL HYSTERECT W/WO RMVL TUBE OVARY Hysterectomy, MIR UNLISTED PROCEDURE ABDOMEN PERITONEUM AND OMENTUM 1996 Sigmoid colectomy with primary end-to-end colorectal anastomosis. SOCIAL HISTORY Social History Tobacco Use Smoking status: Former Smokeless tobacco: Never Tobacco comments: Quit 1996. social smoker mostly Vaping Use Vaping Use: Never used Substance Use Topics Alcohol use: Not Currently Drug use: No FAMILY HISTORY Problem Relation Age of Onset Diabetes Mother Heart disease Mother Heart disease Father ALLERGIES: ALLERGIES Allergen Reactions Cephalexin Unknown Demoral [Meperidine] Other: See Comments Patient does not know if she is allergic but know she is not suppose to take it. Egg Intolerance, GI Upset Per patient. Latex Rash, Hives Morphine Unknown Other Reaction(s): Unknown cause Sulfa (Sulfonamide * Intolerance MEDICATIONS: apixaban (ELIQUIS) 5 mg tab(s) Take 1 tablet by mouth two times a day. atorvastatin (LIPITOR) 40 mg tablet Take 1 tablet by mouth daily at bedtime. carvedilol (COREG) 12.5 mg tablet Take 1 tablet by mouth two times a day with meals. (more content not included)... Normal [facility] [facility] 2000 panelon 09-26-2023 Albumin [Mass/Vol] 4.2 g/dL Normal 3.9-4.9 [facility] Comment on above: Order Comment: Speci men Type: BLOOD SPECIMEN Ordering Facility: [facility] Address: [address] [place] [address] Performed By: #### 2 4323-8, 51295-1 #### [facility] CLIA [id number] [address] [place] [address] [place] ALP [Catalytic activity/Vol] 57 U/L Normal 34-123 [facility] Comment on above: Order Comment: Speci men Type: BLOOD SPECIMEN Ordering Facility: [facility] Address: [address] [place] [address] Performed By: #### 2 4323-8, 38127-3 #### [facility] CLIA [id number] [address] [place] [address] [place] ALT [Catalytic activity/Vol] 36 U/L Normal 7-38 [facility] Comment on above: Order Comment: Speci men Type: BLOOD SPECIMEN Ordering Facility: [facility] Address: [address] [place] [address] Performed By: #### 2 4323-8, 04242-0 #### [facility] CLIA [id number] [address] [place] [address] [place] Anion gap [Moles/Vol] 10 mmol/L Normal 9-18 [facility] Comment on above: Order Comment: Speci men Type: BLOOD SPECIMEN Ordering Facility: [facility] Address: [address] [place] [address] Performed By: #### 2 4323-8, 88955-1 #### [facility] CLIA [id number] [address] [place] [address] [place] AST [Catalytic activity/Vol] 29 U/L Normal 13-35 [facility] Comment on above: Order Comment: Speci men Type: BLOOD SPECIMEN Ordering Facility: [facility] Address: [address] [place] [address] Performed By: #### 2 4323-8, 71830-8 #### [facility] CLIA [id number] [address] [place] [address] [place] Bilirubin [Mass/Vol] 0.6 mg/dL Normal 0.2-1.3 [facility] Comment on above: Order Comment: Speci men Type: BLOOD SPECIMEN Ordering Facility: [facility] Address: [address] [place] [address] Performed By: #### 2 4323-8, 60089-8 #### [facility] CLIA [id number] [address] [place] [address] [place] Calcium [Mass/Vol] 9.6 mg/dL Normal 8.5-10.2 [facility] Comment on above: Order Comment: Speci men Type: BLOOD SPECIMEN Ordering Facility: [facility] Address: [address] [place] [address] Performed By: #### 2 4323-8, 82198-9 #### [facility] CLIA [id number] [address] [place] [address] [place] Chloride [Moles/Vol] 100 mmol/L Normal 97-105 [facility] Comment on above: Order Comment: Speci men Type: BLOOD SPECIMEN Ordering Facility: [facility] Address: [address] [place] [address] Performed By: #### 2 4323-8, 89322-6 #### [facility] CLIA [id number] [address] [place] [address] [place] CO2 [Moles/Vol] 29 mmol/L Normal 22-30 [facility] Comment on above: Order Comment: Speci men Type: BLOOD SPECIMEN Ordering Facility: [facility] Address: [address] [place] [address] Performed By: #### 2 4323-8, 92711-6 #### [facility] CLIA [id number] [address] [place] [address] [place] Creatinine [Mass/Vol] 0.82 mg/dL Normal 0.58-0.96 [facility] Comment on above: Order Comment: Nichole becerra Type: BLOOD SPECIMEN Ordering Facility: [facility] Address: [address] [place] [address] Performed By: #### 2 4323-8, 88211-2 #### [facility] CLIA [id number] [address] [place] [address] [place] Creatinine and Glomerular filtration rate.predicted panel (S/P/Bld) 75 mL/min/1.73m??? Normal >=60 [facility] Comment on above: Order Comment: Nichole becerra Type: BLOOD SPECIMEN Ordering Facility: [facility] Address: [address] [place] [address] Result Comment: Shelley mated Glomerular Filtration Rate (eGFR) is calculated using the 2020 CKD-EPI creatinine equation. This equation utilizes serum creatinine, sex, and age as parameters. The creatinine assay has traceable calibration to isotope dilution-mass spectrometry. Refer to KDIGO guidelines for clinical interpretation. In patients with unstable renal function, e.g. those with acute kidney injury, the eGFR may not accurately reflect actual GFR. Performed By: #### 2 4323-8, 66722-2 #### [facility] CLIA [id number] [address] [place] [address] [place] Glucose [Mass/Vol] 129 mg/dL High 74-99 [facility] Comment on above: Order Comment: Nichole becerra Type: BLOOD SPECIMEN Ordering Facility: [facility] Address: [address] [place] [address] Result Comment: The [place] [employer] (ADA) provides guidance for cutoff values for fasting glucose and random glucose. The ADA defines fasting as no caloric intake for at least 8 hours. Fasting plasma glucose results between 100 to 125 mg/dL indicate increased risk for diabetes (prediabetes). Fasting plasma glucose results greater than or equal to 126 mg/dL meet the criteria for diagnosis of diabetes. In the absence of unequivocal hyperglycemia, results should be confirmed by repeat testing. In a patient with classic symptoms of hyperglycemia or hyperglycemic crisis, random plasma glucose results greater than or equal to 200 mg/dL meet the criteria for diagnosis of diabetes. Reference: Standards of Medical Care in Diabetes 2016, [place] [employer]. Diabetes Care. 2016.39(Suppl 1). Performed By: #### 2 4323-8, 83243-9 #### [facility] CLIA [id number] [address] [place] [address] [place] Potassium [Moles/Vol] 4.3 mmol/L Normal 3.7-5.1 [facility] Comment on above: Order Comment: Speci men Type: BLOOD SPECIMEN Ordering Facility: [facility] Address: [address] [place] [address] Performed By: #### 2 4323-8, 28086-2 #### [facility] CLIA [id number] [address] [place] [address] [place] Protein [Mass/Vol] 6.4 g/dL Normal 6.3-8.0 [facility] Comment on above: Order Comment: Speci men Type: BLOOD SPECIMEN Ordering Facility: [facility] Address: [address] [place] [address] Performed By: #### 2 4323-8, 61867-6 #### [facility] CLIA [id number] [address] [place] [address] [place] Sodium [Moles/Vol] 139 mmol/L Normal 136-144 [facility] Comment on above: Order Comment: Speci men Type: BLOOD SPECIMEN Ordering Facility: [facility] Address: [address] [place] [address] Performed By: #### 2 4323-8, 51486-8 #### [facility] CLIA [id number] [address] [place] [address] [place] Urea nitrogen [Mass/Vol] 15 mg/dL Normal 7-21 [facility] Comment on above: Order Comment: Speci men Type: BLOOD SPECIMEN Ordering Facility: [facility] Address: [address] [place] [address] Performed By: #### 2 4323-8, 37550-2 #### [facility] CLIA [id number] [address] [place] [address] [facility] [id number] 09-26-2023 ECG01 Ventricular Rate : 6 2 BPM Atrial Rate : 62 BPM P-R Interval : 112 ms QRS Duration : 96 ms Q-T Interval : 388 ms QTC Calculation(Bazett) : 393 ms Calculated P [place] : 80 degrees Calculated R [place] : 79 degrees Calculated T [place] : 26 degrees NORMAL SINUS RHYTHM NORMAL ECG Confirmed by MD BERMUDEZ HEBA ([id number]) on 10/03/2023 6:33:53 PM NAME : ASYA ASENCIO PID : [id number] : 1950 Gender : Female Race : ORD : Procedure Date : Sep 26 2023 09:27:55 Edit Date : Oct 03 2023 18:33:54 Diagnosis: NORMAL SINUS RHYTHM NORMAL ECG Confirmed by MD BERMUDEZ HEBA ([id number]) on 10/03/2023 6:33:53 PM Test Reason : Location : 567 : J24NS Overread By : MD BERMUDEZ HEBA Edited By : MD BERMUDEZ HEBA Referred By : , Acquired by : , Normal [facility] ECG01 Ventricular Rate : 6 7 BPM Atrial Rate : 67 BPM P-R Interval : 114 ms QRS Duration : 96 ms Q-T Interval : 380 ms QTC Calculation(Bazett) : 401 ms Calculated P [place] : 83 degrees Calculated R [place] : 79 degrees Calculated T [place] : 24 degrees SINUS RHYTHM WITH OCCASIONAL PREMATURE VENTRICULAR COMPLEXES INFERIOR T WAVE ABNORMALITY ABNORMAL ECG Confirmed by MD BERMUDEZ HEBA ([id number]) on 10/03/2023 2:34:05 PM NAME : ASYA ASENCIO PID : [id number] : 1950 Gender : Female Race : ORD : Procedure Date : Sep 26 2023 09:27:28 Edit Date : Oct 03 2023 14:34:07 Diagnosis: SINUS RHYTHM WITH OCCASIONAL PREMATURE VENTRICULAR COMPLEXES INFERIOR T WAVE ABNORMALITY ABNORMAL ECG Confirmed by MD LARA, FLORINDA ([id number]) on 10/03/2023 2:34:05 PM Test Reason : Location : 567 : J24NS Overread By : MD BERMUDEZ HEBA Edited By : MD BERMUDEZ HEBA Referred By : , Acquired by : , Normal [facility] NT-proBNP SerPl-ncon 09-26 Natriuretic peptide.B prohormone N-Terminal [Mass/Vol] 2047 pg/mL High <450 [facility] Comment on above: Order Comment: Speci men Type: BLOOD SPECIMEN Ordering Facility: [facility] Address: [address] [place] [address] Performed By: #### 2 4323-8, 52398-0 #### [facility] CLIA [id number] [address] [place] [address] [place] URINALYSIS, REFLEX MICROSCOP ICon 09-26-2023 Bacteria LM.HPF (Urine sed) [#/Area] Few Abnormal None Seen [facility] Comment on above: Order Comment: Speci men Type: BLOOD SPECIMEN Ordering Facility: [facility] Address: [address] [place] [address] Performed By: #### 2 4323-8, 31659-6 #### [facility] CLIA [id number] [facility] [place] [address] [place] Bilirubin Ql (U) Negative Normal Negative [facility] Comment on above: Order Comment: Speci men Type: BLOOD SPECIMEN Ordering Facility: [facility] Address: [address] [place] [address] Performed By: #### 2 4323-8, #### [facility] CLIA [id number] [facility] [place] [address] [place] Clarity (Unsp spec) Cloudy Abnormal Clear [facility] Comment on above: Order Comment: Speci men Type: BLOOD SPECIMEN Ordering Facility: [facility] Address: [address] [place] [address] Performed By: #### 2 432-8, #### [facility] CLIA [id number] [address] [place] [address] [place] Color (U) Yellow Normal Yellow [facility] Comment on above: Order Comment: Speci men Type: BLOOD SPECIMEN Ordering Facility: [facility] Address: [address] [place] [address] Performed By: #### 2 4323-03, #### [facility] CLIA [id number] [address] [place] [address] [place] Epithelial cells LM.HPF (Urine sed) [#/Area] Moderate Normal [facility] Comment on above: Order Comment: Speci men Type: BLOOD SPECIMEN Ordering Facility: [facility] Address: [address] [place] [address] Result Comment: Few Performed By: #### 2 4323-03, #### [facility] CLIA [id number] [address] [place] [address] [place] Glucose Test strip (U) [Mass/Vol] Negative Normal Trace, Negative [facility] Comment on above: Order Comment: Speci men Type: BLOOD SPECIMEN Ordering Facility: [facility] Address: [address] [place] [address] Performed By: #### 2 4323-03, #### [facility] CLIA [id number] [address] [place] [address] [place] Hemoglobin Ql (U) 1+ Abnormal Negative, Trace [facility] Comment on above: Order Comment: Speci men Type: BLOOD SPECIMEN Ordering Facility: [facility] Address: [address] [place] [address] Performed By: #### 2 43210-19, #### [facility] CLIA [id number] [address] [place] [id number] [place] Ketones Ql (U) Negative Normal Negative, Trace [facility] Comment on above: Order Comment: Speci men Type: BLOOD SPECIMEN Ordering Facility: [facility] Address: [address] [place] [address] Performed By: #### 2 432-8, #### [facility] CLIA [id number] [address] [place] [address] [place] Leukocyte esterase Test strip Ql (U) 500 Ghislaine/uL Abnormal Negative, 25 Ghislaine/uL [facility] Comment on above: Order Comment: Speci men Type: BLOOD SPECIMEN Ordering Facility: [facility] Address: [address] [place] [address] Performed By: #### 2 4328, #### [facility] CLIA [id number] [address] [place] [address] [place] Nitrite Ql (U) Negative Normal Negative [facility] Comment on above: Order Comment: Speci men Type: BLOOD SPECIMEN Ordering Facility: [facility] Address: [address] [place] [address] Performed By: #### 2 4328, #### [facility] CLIA [id number] [address] [place] [address] [place] pH (U) 6.0 [pH] Normal 5.0-8.0 [facility] Comment on above: Order Comment: Speci men Type: BLOOD SPECIMEN Ordering Facility: [facility] Address: [address] [place] [address] Performed By: #### 2 4323-8, #### [facility] CLIA [id number] [address] [place] [address] [place] Protein (U) [Mass/Vol] Negative Normal Trace , Negative [facility] Comment on above: Order Comment: Speci men Type: BLOOD SPECIMEN Ordering Facility: [facility] Address: [address] [place] [address] Performed By: #### 2 4322-, #### [facility] CLIA [id number] [address] [place] [address] [place] RBC LM.HPF (Urine sed) [#/Area] 3-5 /HPF Abnormal 0-3 /HPF [facility] Comment on above: Order Comment: Speci men Type: BLOOD SPECIMEN Ordering Facility: [facility] Address: [address] [place] [address] Performed By: #### 2 432-8, #### [facility] CLIA [id number] [address] [place] [address] [place] Specific gravity (U) [Rel density] 1.013 Normal 1.005-1.030 [facility] Comment on above: Order Comment: Speci men Type: BLOOD SPECIMEN [facility]ing Facility[facility] Address: [address] [place] [address] Performed By: #### 2 4328, #### [facility] CLIA [id number] [address] [place] [address] [place] Urobilinogen Ql (U) Normal Normal Normal [facility] Comment on above: Order Comment: Speci men Type: BLOOD SPECIMEN [facility]ing Facility[facility] Address: [address] [place] [address] Performed By: #### 2 4323-8, #### [facility] CLIA [id number] [address] [place] [address] [place] WBC LM.HPF (Urine sed) [#/Area] /[HPF] Abnormal 0-5 /HPF [facility] Comment on above: Order Comment: Speci men Type: BLOOD SPECIMEN Ordering Facility: [facility] Address: [address] [place] [address] Performed By: #### 2 4323-8, #### [facility] CLIA [id number] [address] [place] Bacteria LM.HPF (Urine sed) [#/Area] Few Abnormal None Seen /HPF [facility] Bilirubin Ql (U) Negative Negative [facility] Clarity (Unsp spec) Cloudy Abnormal Clear [facility] Color (U) Yellow Yellow [facility] Epithelial cells LM.HPF (Urine sed) [#/Area] Moderate [facility] Epithelial cells LM.HPF (Urine sed) [#/Area] Few Abnormal None Seen /HPF [facility] Glucose Test strip (U) [Mass/Vol] Negative Trace, Negative [facility] Hemoglobin Ql (U) 1+ Abnormal Negative, Trace [facility] Ketones Ql (U) Negative Negative, Trace [facility] Leukocyte esterase Test strip Ql (U) 500 Ghislaine/uL Abnormal Negative, 25 Ghislaine/uL [facility] Nitrite Ql (U) Negative Negative [facility] pH (U) 6.0 [pH] 5.0 - 8.0 [facility] Protein (U) [Mass/Vol] Negative Trace , Negative [facility] RBC LM.HPF (Urine sed) [#/Area] 3-5 /HPF Abnormal 0-3 /HPF [facility] Specific gravity (U) [Rel density] 1.013 1.005 - 1.030 [facility] Urobilinogen Ql (U) Normal Normal [facility] WBC LM.HPF (Urine sed) [#/Area] /[HPF] Abnormal 0-5 /HPF [facility] CNPNon 09-21-2023 CNPN Telephone (CARCMN) ASYA ASENCIO I ([id number]) 1950 F Date Time Provider Department 09/21/23 ALEA HARLEY CARCMN During your visit today, we recorded the following information about you: Junito Mendes 09/21/2023 3:40 PM Signed September 21, 2023 Patient Contact Number: [phone] Patient last seen within the last year: Yes Date of last office visit: 08/23/2023 Reason For Call: Medication Issue/Question: Pt calling to follow up on recent ER visit (notes available in Care Everywhere) where it was found that she is allergic to Valsartan; would like to know what is safe for her to take and if anything would interfere with digoxin Rx Physician: Alea Harley MD Patient was informed that non-urgent calls may be returned within the next three business days. Yes Carmina Metz RN 09/21/2023 4:[address] Harley would like patient to come in and be seen to go over this in greater detail. Work on setting her up with an FACILITY COORDINATOR and Dr. Harley would like to be in for the appointment. Next Monday. ROCÍO Mckeon Annette 09/22/2023 1:24 PM Signed Received call from Cardiothoracic surgery office. Patient contacted his office to discuss that she was unhappy with the medication and she would like someone to call her back to discuss. Fatou Ricci Digital Ad Trafficker September 22, 2023 1:23 PM Kim Greenberg RN 09/22/2023 2:04 PM Signed Called patient and she told me she cannot come on the as she does not have a car. She said that she can come on the as she has a urology appointment and her son is bringing her. She said she is going to live with her daughter in [place] for a few months and she wants a second opinion over there regarding her heart. ROCÍO Montes De Oca Amy, RN 09/22/2023 2:23 PM Signed Offered patient 8am or 9am appt on Monday and she was yelling that she needed an appointment closer to her urology appointment. Told her I cannot offer that as there are only an 8 or 9am available. Pt will call her son to see if she can get here. ROCÍO Montes De Oca Amy, RN 09/22/2023 2:53 PM Signed Patient called again to let me know that her son probably cannot bring her Monday and that she left a message with him. She is asking about a blood pressure medication to be added and I explained that the point of the appointment is to talk about medications. Again she argues that he cannot bring her most likely. She brings up a second opinion again. Asking if Dr. Harley can communicate with Dr. Nazario. Explained will have to speak with Dr. Harley. ROCÍO Montes De OcaJunito Deyanira 09/22/2023 2:59 PM Signed Pt called back; states that she can get up here for an appt, but her son will need to get back to work so it will be hard on her to sit up here all day until he is able to come get her; would like to speak with the nurse to discuss Kim Greenberg RN 09/22/2023 3:[address] Harley and he said that he wants her to see a FACILITY COORDINATOR or she will have to get a local opinion. Kim Greenberg RN 09/22/2023 4:46 PM Signed Patient called back and being added 09/26 at 9am. Kim Greenberg RN Allergies As of Date: 09/21/2023 Noted Allergy Reaction CEPHALEXIN 01/30/2023 16 - Unknown DEMORAL (MEPERIDINE) 05/14/2010 14 - Other: See Comments Comments: Patient does not know if she is allergic but know she is not suppose to take it. EGG 08/29/2023 5 - Intolerance 8 - GI Upset Comments: Per patient. LATEX 09/26/2012 2 - Rash 4 - Hives MORPHINE 04/12/2023 16 - Unknown Comments: Other Reaction(s): Unknown cause SULFA (SULFONAMIDE ANTIBIOTICS) 07/25/2023 5 - Intolerance Date Reviewed: 08/31/2023 Reviewed by: Latisha Leung (Rn)(Hist) RN - Fully Assessed Reason for Visit: Medication Problem [65] Prescriptions as of 09/22/2023 - apixaban (ELIQUIS) 5 mg tab(s) Take 1 tablet by mouth two times a day. - atorvastatin (LIPITOR) 40 mg tablet Take 1 tablet by mouth daily at bedtime. - carvedilol (COREG) 12.5 mg tablet Take 1 tablet by mouth two times a day with meals. - polyethylene glycol 3350 17 gram/dose powder Take 17 g by mouth once daily as needed. Dissolve dose in 4 - 8 ounces of liquid and take as directed. - spironolactone (ALDACTONE) 25 mg tablet Take a half tablet by mouth once daily. - valsartan (DIOVAN) 80 mg tablet Take 1 tablet by mouth once daily. - digoxin (LANOXIN) 125 mcg (0.125 mg) tablet Take HALF tablet by mouth daily (not one complete tablet) - LORazepam (ATIVAN) 1 mg tablet Take 1 mg by mouth every 6 hours as needed for anxiety. 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 Normal [facility] BMPon 09-17-2023 Anion gap [Moles/Vol] 9 mmol/L Normal 6-16 [facility] Comment on above: Performed By: #### 2 963314, 27494327, 95208726, 1417386, [id number] ####[facility] [address] [place] [address] BUN/Creat Ratio 24 No Units High 10-20 [facility] Comment on above: Performed By: #### 2 578006, 52473922, 45896323, 1964434, 19877930 ####[facility] [address] [place] [address] Calcium [Mass/Vol] 9.1 mg/dL Normal 8.9-11.1 [facility] Comment on above: Performed By: #### 2 083005, 15635094, 40250584, 8539855, 19827721 ####[facility] [address] [place] [address] Chloride [Moles/Vol] 105 mmol/L Normal 101-111 [facility] Comment on above: Performed By: #### 2 552619, 28672257, 76628724, 3457058, 23360489 ####[facility] [address] [place] [address] CO2 [Moles/Vol] 28 mmol/L Normal 21-31 [facility] Comment on above: Performed By: #### 2 701487, 45259719, 87891294, 1990113, 32297358 ####[facility] [address] [place] [address] Creatinine [Mass/Vol] 0.7 mg/dL Normal 0.5-1.3 [facility] Comment on above: Performed By: #### 2 520239, 50035094, 33933540, 7011926, 00963195 ####[facility] [address] [place] [address] Glucose [Mass/Vol] 83 mg/dL Normal 55-199 [facility] Comment on above: Performed By: #### 2 539033, 00075043, 79840615, 2217942, 34667787 ####[facility] [address] [place] [address] Potassium [Moles/Vol] 4.0 mmol/L Normal 3.5-5.3 [facility] Comment on above: Performed By: #### 2 246756, 76447832, 92928313, 1567157, 15918253 ####[facility] [address] [place] [address] Sodium [Moles/Vol] 138 mmol/L Normal 135-145 [facility] Comment on above: Performed By: #### 2 738230, 50051491, 75824357, 8990014, 98373018 ####[facility] [address] [place] [address] Urea nitrogen [Mass/Vol] 17 mg/dL Normal 5-21 [facility] Comment on above: Performed By: #### 2 111263, 09198497, 01880209, 8184262, 96003757 ####[facility] [address] [place] [address] CBC w/ Auto Diffon 4 Basophil Absolute 0.1 E9/L Normal 0.0-0.2 [facility] Comment on above: Performed By: #### 2 813392, 12773724, 13024146, 7160868, 29700087 ####[facility] [address] [place] [address] Basophils/100 WBC (Bld) 0.9 % Normal 0.0-2.0 [facility] Comment on above: Performed By: #### 2 798202, 69445830, 08667631, 9320247, 68123392 ####[address] [address] Eos Absolute 0.0 E9/L Normal 0.0-0.5 [facility] Comment on above: Performed By: #### 2 350925, 56444546, 41062900, 2688358, 80311289 ####[address] [address] Eosinophils/100 WBC (Bld) 0.7 % Normal 0.0-8.0 [facility] Comment on above: Performed By: #### 2 374813, 33799525, 54958311, 5118693, 66243886 ####[address] [address] Erythrocyte distribution width (RBC) [Ratio] 14.1 % Normal 10.9-14.2 [facility] Comment on above: Performed By: #### 2 196575, 00123956, 15315228, 8457791, 10012762 ####[address] [address] Hematocrit (Bld) [Volume fraction] 36.0 % Normal 34.0-46.0 [facility] Comment on above: Performed By: #### 2 929005, 98487487, 30111777, 5750577, 62877932 ####[address] [place] [address] Hemoglobin (Bld) [Mass/Vol] 12.2 g/dL Normal 12.0-16.0 [facility] Comment on above: Performed By: #### 2 083918, 88531657, 43570219, 4284133, 45144779 ####[facility] [address] [place] [address] Lymph Absolute 2.1 E9/L Normal 1.0-4.0 [facility] Comment on above: Performed By: #### 2 023525, 08327033, 53348688, 4951723, 86873644 ####[address] [address] Lymphocytes/100 WBC (Bld) 31.6 % Normal 14.0-50.0 [facility] Comment on above: Performed By: #### 2 518849, 10666997, 10163593, 8639932, 50323062 ####[address] [address] MCH (RBC) [Entitic mass] 30.0 pg Normal 27.0-34.0 [facility] Comment on above: Performed By: #### 2 678399, 55856323, 27287818, 8561804, 23392778 ####[address] [address] MCHC (RBC) [Mass/Vol] 34.1 g/dL Normal 31.4-36.0 [facility] Comment on above: Performed By: #### 2 660796, 42630427, 71183203, 7675223, 76733780 ####[address] [address] MCV (RBC) [Entitic vol] 88.0 fL Normal 80.0-100.0 [facility] Comment on above: Performed By: #### 2 693958, 63691445, 90965727, 0037521, 89812399 ####[address] [place] [address] [place] Absolute 0.6 E9/L Normal 0.2-1.0 [facility] Comment on above: Performed By: #### 2 638292, 24968729, 22601926, 7985028, 57506824 ####[address] [address] Monocytes/100 WBC (Bld) 9.5 % Normal 4.0-14.0 [facility] Comment on above: Performed By: #### 2 480235, 86284726, 88856803, 8608120, 81913062 ####[address] [address] Neutro Absolute 3.8 E9/L Normal 2.0-7.5 [facility] Comment on above: Performed By: #### 2 172974, 61823249, 33580375, 3645514, 75749470 ####[address] [address] Neutro Auto 57.3 % Normal 36.0-75.0 [facility] Comment on above: Performed By: #### 2 782551, 94795384, 32246513, 5487206, 83726691 ####[address] [address] Platelet 186.0 E9/L Normal 150.0-500.0 [facility] Comment on above: Performed By: #### 2 624032, 80158572, 95528268, 2751292, 43022924 ####[address] [address] Platelet mean volume (Bld) [Entitic vol] 8.0 fL Normal 6.4-10.8 [facility] Comment on above: Performed By: #### 2 510220, 83118815, 26818805, 2083572, 58060436 ####[address] [address] RBC 4.1 E12/L Low 4.3-5.9 [facility] Comment on above: Performed By: #### 2 617127, 79107006, 82325901, 9367838, 82824905 ####[facility] [address] [place] [address] WBC 6.6 E9/L Normal 4.0-11.0 [facility] Comment on above: Performed By: #### 2 819139, 58104757, 97482976, 2404293, 52787254 ####[facility] [address] [place] [address] CHEMISTRYOrdered By: SYSTEM SYSTEM on 09-17-2023 Anion gap [Moles/Vol] 9 mmol/L Normal 6 - 16 mEq/L R emisol Chem Calcium [Mass/Vol] 9.1 mg/dL Normal 8.9 - 11. 1 mg/dL Remisol Chem Chloride [Moles/Vol] 105 mmol/L Normal 101 - 1 11 mmol/L Remisol Chem CO2 [Moles/Vol] 28 mmol/L Normal 21 - 31 mmol/L Remisol Chem Creatinine [Mass/Vol] 0.7 mg/dL Normal 0.5 - 1.3 mg/dL Remisol Chem eGFR 90 mL/min/1.73 m2 Normal >=59mL/min /1 .73 m2 Remisol Chem Glucose [Mass/Vol] 83 mg/dL Normal 55 - 199 mg/dL Remisol Chem Potassium [Moles/Vol] 4.0 mmol/L Normal 3.5 - 5.3 mmol/L Remisol Chem Sodium [Moles/Vol] 138 mmol/L Normal 135 - 145 mmol/L Remisol Chem Troponin 11.70 pg/mL Normal 10.10 - 27.10 pg/mL Remisol Chem Comment on above: Interpretive Data: T he 95% CI (Confidence Interval) PPV (Positive Predictive Value) for myocardial infarction in females is 38 pg/mL, in males 51 pg/mL. The results should be used in conjunction with clinical conditions of myocardial infarction. (Access High Sensitivity Troponin I Instructions For Use, Marlys Ariadne, March 2018) Urea nitrogen [Mass/Vol] 17 mg/dL Normal 5 - 21 mg/dL Remisol Chem Urea nitrogen/Creatinine [Mass ratio] 24 mg/mg High 10 - 20 Remisol Chem CHEMISTRYOrdered By: Lab ROP User on 09-17-2023 Glucose [Mass/Vol] 79 mg/dL Normal 55 - 99 mg/dL [facility] POC Subsection Comment on above: Result Comment: Neli cain RN/ POC Device SN [id number] Invalid Interpretation Code [facility] Subsection POC User ID [id number] 1 Invalid Interpretation Code [facility] Subsection POC UsernamZIGGY Khan Invalid Interpretation Code [facility] Subsection Samia 09-17-2023 NATHALIE Telephone (THOSMN) ASYA ASENCIO I ([id number]) 1950 F Date Time Provider Department 09/17/23 CARMINA MCMAHAN During your visit today, we recorded the following information about you: Carmina Mcmahan APRN.CNP 09/17/2023 4:29 AM Signed [facility] Center Inbound Phone Encounter DATE of SERVICE: 09/17/2023 TIME of SERVICE: 4:21 AM Status: Urgent Service/Provider: Clinical Cardiology Alea Harley MD Reason for call: Medication Issue/Question Contact information: [phone] Resolution: [facility] Comments: Patient calling after waking up with shakes and trembles and now her stomach has acid coming up and is on fire . I took the half pill, but I can't take this medicine anymore, I can't live like this, I can't eat, I can't sleep, I can't exist . She feels her blood pressure is too low, but denies dizziness, SOB, or chest pain. Patient repeated all the above several times. She does not have any heartburn medication at home, and said she might have to go to the ER for something for my stomach . Patient will not continue to take the valsartan. She would like to know if there is another medication to try. Carmina Mcmahan APRN.CNP [facility] [employer] Date of Resolution: 09/17/2023 Time of Resolution 4:21 AM Allergies As of Date: 09/17/2023 Noted Allergy Reaction CEPHALEXIN 01/30/2023 16 - Unknown DEMORAL (MEPERIDINE) 05/14/2010 14 - Other: See Comments Comments: Patient does not know if she is allergic but know she is not suppose to take it. EGG 08/29/2023 5 - Intolerance 8 - GI Upset Comments: Per patient. LATEX 09/26/2012 2 - Rash 4 - Hives MORPHINE 04/12/2023 16 - Unknown Comments: Other Reaction(s): Unknown cause SULFA (SULFONAMIDE ANTIBIOTICS) 07/25/2023 5 - Intolerance Date Reviewed: 08/31/2023 Reviewed by: Latisha Leung (Rn)(Hist), RN - Fully Assessed Reason for Visit: Medication Problem [65] Prescriptions as of 09/17/2023 - apixaban (ELIQUIS) 5 mg tab(s) Take 1 tablet by mouth two times a day. - atorvastatin (LIPITOR) 40 mg tablet Take 1 tablet by mouth daily at bedtime. - carvedilol (COREG) 12.5 mg tablet Take 1 tablet by mouth two times a day with meals. - polyethylene glycol 3350 17 gram/dose powder Take 17 g by mouth once daily as needed. Dissolve dose in 4 - 8 ounces of liquid and take as directed. - spironolactone (ALDACTONE) 25 mg tablet Take a half tablet by mouth once daily. - valsartan (DIOVAN) 80 mg tablet Take 1 tablet by mouth once daily. - digoxin (LANOXIN) 125 mcg (0.125 mg) tablet Take HALF tablet by mouth daily (not one complete tablet) - LORazepam (ATIVAN) 1 mg tablet Take 1 mg by mouth every 6 hours as needed for anxiety. Problem List As Of Date 09/17/2023 Noted Resolved INTESTINAL OBSTRUCT NOS [K56.609] 03/13/2009 Incomplete bladder emptying [R33.9] 09/26/2012 Non-rheumatic mitral regurgitation [I34.0] 07/25/2023 Nonrheumatic tricuspid valve regurgitation [I36*07/25/2023 Mitral valve regurgitation due to cardiomyopath* 024 Acute on chronic systolic congestive heart fail*08/26/2023 08/27/2023 Cardiomyopathy, nonischemic (HCC) [I42.8] 08/26/2023 Atrial fibrillation, persistent (HCC) [I48.19] 08/27/2023 Anxiety [F41.9] 08/27/2023 Urethral stricture [N35.919] 08/27/2023 Primary hypertension [I10] 08/27/2023 Adjustment disorder with mixed anxiety and depr*08/29/2023 Generalized anxiety disorder [F41.1] 08/29/2023 Severe protein-calorie malnutrition (HCC) [E43] 08/30/2023 Encounter Status:Closed by CARMINA MCMAHAN on 09/17/23 [facility] NATHALIE Telephone (THOSMN) ASYA ASENCIO I ([id number]) 1950 F Date Time Provider Department 09/17/23 CARMINA MCMAHAN During your visit today, we recorded the following information about you: Carmina Mcmahan APRN.TALIB 09/17/2023 6:31 AM Signed Patient reported that she went to the ED, said her blood pressure was up instead of down this time . I didn't sleep, I can't take that medicine, there's something that don't agree with me. She reiterates that she can't take that medication (valsartan) again. Carmina Mcmahan APRN.[facility] [employer] [employer] 09/17/2023 6:29 AM Allergies As of Date: 09/17/2023 Noted Allergy Reaction CEPHALEXIN 01/30/2023 16 - Unknown DEMORAL (MEPERIDINE) 05/14/2010 14 - Other: See Comments Comments: Patient does not know if she is allergic but know she is not suppose to take it. EGG 08/29/2023 5 - Intolerance 8 - GI Upset Comments: Per patient. LATEX 09/26/2012 2 - Rash 4 - Hives MORPHINE 04/12/2023 16 - Unknown Comments: Other Reaction(s): Unknown cause SULFA (SULFONAMIDE ANTIBIOTICS) 07/25/2023 5 - Intolerance Date Reviewed: 08/31/2023 Reviewed by: Latisha Leung (Rn)(Hist), RN - Fully Assessed Reason for Visit: Medication Problem [65] Prescriptions as of 09/17/2023 - apixaban (ELIQUIS) 5 mg tab(s) Take 1 tablet by mouth two times a day. - atorvastatin (LIPITOR) 40 mg tablet Take 1 tablet by mouth daily at bedtime. - carvedilol (COREG) 12.5 mg tablet Take 1 tablet by mouth two times a day with meals. - polyethylene glycol 3350 17 gram/dose powder Take 17 g by mouth once daily as needed. Dissolve dose in 4 - 8 ounces of liquid and take as directed. - spironolactone (ALDACTONE) 25 mg tablet Take a half tablet by mouth once daily. - valsartan (DIOVAN) 80 mg tablet Take 1 tablet by mouth once daily. - digoxin (LANOXIN) 125 mcg (0.125 mg) tablet Take HALF tablet by mouth daily (not one complete tablet) - LORazepam (ATIVAN) 1 mg tablet Take 1 mg by mouth every 6 hours as needed for anxiety. Problem List As Of Date 09/17/2023 Noted Resolved INTESTINAL OBSTRUCT NOS [K56.609] 03/13/2009 Incomplete bladder emptying [R33.9] 09/26/2012 Non-rheumatic mitral regurgitation [I34.0] 07/25/2023 Nonrheumatic tricuspid valve regurgitation [I36*07/25/2023 Mitral valve regurgitation due to cardiomyopath* 024 Acute on chronic systolic congestive heart fail*08/26/2023 08/27/2023 Cardiomyopathy, nonischemic (HCC) [I42.8] 08/26/2023 Atrial fibrillation, persistent (HCC) [I48.19] 08/27/2023 Anxiety [F41.9] 08/27/2023 Urethral stricture [N35.919] 08/27/2023 Primary hypertension [I10] 08/27/2023 Adjustment disorder with mixed anxiety and depr*08/29/2023 Generalized anxiety disorder [F41.1] 08/29/2023 Severe protein-calorie malnutrition (HCC) [E43] 08/30/2023 Encounter Status:Closed by CARMINA MCMAHAN on 09/17/23 Normal [facility] COAGULATIONOrdered By: Han blankenship Margot on 09-17-2023 aPTT Coag (PPP) [Time] 38.2 s High 25.1 - 36.5 second(s) [facility] Auto [facility]ag Comment on above: Interpretive Data: Tim chandlerbren 15 days - 4 weeks 1 - 5 months 6 - 11 months 1 - 5 years 6 - 10 years 11 - 17 years PTT Mean: 35.4 (27.6-45.6) Mean: 33.5 (24.8-40.7) Mean: 32.4 (25.1-40.7) Mean: 31.6 (24.0-39.2) Mean: 31.6 (26.9-38.7) Mean: 31.0 (24.6-38.4) Pediatric Reference ranges were obtained from a study by Roel Loco et al. prepared from 1437 samples obtained at 7 different centers using the same coagulation reagent and instrumentation as [facility]. Currently there are no coagulation studies available worldwide for children to 14 days, and no normal ranges. Heparin therapeutic range (represented by Anti-Factor Xa activity of 0.2 - 0.4 U/mL) corresponds to PTT of 56.6 - 109.0 sec. INR Coag (PPP) [Relative time] 1.4 {INR} Invalid Interpretation Code [facility] Comment on above: Interpretive Data: I NR results are specifically intended to assess patients stabilized on long-term Anticoagulation therapy suggested INR s Less Intensive Anticoagulation 2.0 3.0 Conventional Range 3.0 4.5 PT Coag (PPP) [Time] 16.4 s High 9.4 - 1 2.5 second(s) [facility] Comment on above: Interpretive Data: 1 5 days - 4 weeks 1 - 5 months 6 -11 months 1 5 years 6 10 years 11 -17 years Mean: 11.2 (9.5 12.6) Mean: 11.0 (9.7 12.8) Mean: 11.0 (9.8 13.0) Mean: 11.3 (9.9 13.4) Mean: 11.7 (10.0 14.6) Mean: 11.8 (10.0 - 14.1) Pediatric Reference ranges were obtained from a study by Roel Loco et al. prepared from 1437 samples obtained at 7 different centers using the same coagulation reagent and instrumentation as [facility]. Currently there are no coagulation studies available worldwide for children to 14 days, and no normal ranges. Capillary Glucose POCon Glucose [Mass/Vol] 79 mg/dL Normal 55-99 [facility] Comment on above: Result Comment: Neli cain RN/ Performed By: #### 2 [id number] ####[facility] [address] [place] [address] Consent for Treatmenton Consent for Treatment [id number] .00TIFF Normal [facility] Discharge Instructionson Discharge Instructions [id number]# 1.00TIFF Normal [facility] ED Clinical Summaryon 2023 ED Clinical Summary Normal [place] ED Note-Physicianon 09-17-19 ED Note-Physician Normal [facility] Comment on above: Result Comment: Elec tronically Signed By: Parveen Ayers DO\.br\Date and Time Signed: 09/17/23 06:06 EST ED Patient Education Noteon 09-17-2023 ED Patient Education Note Normal [facility] ED Patient Summaryon 024 ED Patient Summary Normal [facility] HEMATOLOGYOrdered By: SYSTEM SYSTEM on 09-17-2023 Basophil Absolute 0.1 E9/L Normal 0.0 - 0.2 E9/L Remisol Heme Basophils/100 WBC (Bld) 0.9 % Normal 0.0 - 2.0 % Remisol Heme Eos Absolute 0.0 E9/L Normal 0.0 - 0.5 E9/L Remisol Heme Eosinophils/100 WBC (Bld) 0.7 % Normal 0.0 - 8.0 % Remisol Heme Erythrocyte distribution width (RBC) [Ratio] 14.1 % Normal 10.9 - 14.2 % Remisol Heme Hematocrit (Bld) [Volume fraction] 36.0 % Normal 34.0 - 46.0 % Remisol Heme Hemoglobin (Bld) [Mass/Vol] 12.2 g/dL Normal 12.0 - 16.0 gm/dL Remisol Heme Lymph Absolute 2.1 E9/L Normal 1.0 - 4.0 E9/L Remisol Heme Lymphocytes/100 WBC (Bld) 31.6 % Normal 14.0 - 50.0 % Remisol Heme MCH (RBC) [Entitic mass] 30.0 pg Normal 27.0 - 34.0 pg Remisol Heme MCHC (RBC) [Mass/Vol] 34.1 g/dL Normal 31.4 - 36.0 gm/dL Remisol Heme MCV (RBC) [Entitic vol] 88.0 fL Normal 80.0 - 100.0 fL Remisol Heme [place] Absolute 0.6 E9/L Normal 0.2 - 1.0 E9/L Remisol Heme Monocytes/100 WBC (Bld) 9.5 % Normal 4.0 - 14.0 % Remisol Heme Neutro Absolute 3.8 E9/L Normal 2.0 - 7.5 E9/L Remisol Heme Neutro Auto 57.3 % Normal 36.0 - 75.0 % Remisol Heme Platelet 186.0 E9/L Normal 150.0 - 500.0 E9/L Remisol Heme Platelet mean volume (Bld) [Entitic vol] 8.0 fL Normal 6.4 - 10.8 fL Remisol Heme RBC 4.1 E12/L Low 4.3 - 5.9 E12/L Remisol Heme WBC 6.6 E9/L Normal 4.0 - 11.0 E9/L Remisol Heme Monitor Recordon 09-17-2023 Monitor Record [id number]# 1.00TIFF Normal [facility] PT & PTTon 09-17-2023 aPTT Coag (PPP) [Time] 38.2 second(s) High 25.1-36.5 [facility] Comment on above: Result Comment: Para meter 15 days - 4 weeks 1 - 5 months 6 - 11 months 1 - 5 years 6 - 10 years 11 - 17 years PTT Mean: 35.4 (27.6-45.6) Mean: 33.5 (24.8-40.7) Mean: 32.4 (25.1-40.7) Mean: 31.6 (24.0-39.2) Mean: 31.6 (26.9-38.7) Mean: 31.0 (24.6-38.4) Pediatric Reference ranges were obtained from a study by sophia Fam prepared from 1437 samples obtained at 7 different centers using the same coagulation reagent and instrumentation as [facility]. Currently there are no coagulation studies available worldwide for children to 14 days, and no normal ranges. Heparin therapeutic range (represented by Anti-Factor Xa activity of 0.2 - 0.4 U/mL) corresponds to PTT of 56.6 - 109.0 sec. Performed By: #### 2 757984, 73832952, 62631011, 7824892, 24423412 ####[facility] [address] [place] [address] INR Coag (PPP) [Relative time] 1.4 {INR} Invalid Interpretation Code [facility] Comment on above: Result Comment: INR results are specifically intended to assess patients stabilized on long-term Anticoagulation therapy suggested INR?s ?Less Intensive Anticoagulation? 2.0 ? 3.0Conventional Range 3.0 ? 4.5 Performed By: #### 2 936370, 97177443, 87097437, 5743651, 91810959 ####[facility] [address] [place] [address] PT Coag (PPP) [Time] 16.4 second(s) High 9.4-12.5 [facility] Comment on above: Result Comment: 15 d ays - 4 weeks 1 - 5 months 6 -11 months 1 ? 5 years 6 ? 10 years 11 -17 years Mean: 11.2 (9.5 ? 12.6) Mean: 11.0 (9.7 ? 12.8) Mean: 11.0 (9.8 ? 13.0) Mean: 11.3 (9.9 ? 13.4) Mean: 11.7 (10.0 ? 14.6) Mean: 11.8 (10.0 - 14.1) Pediatric Reference ranges were obtained from a study by Roel Oceano, et al. prepared from 1437 samples obtained at 7 different centers using the same coagulation reagent and instrumentation as [facility]. Currently there are no coagulation studies available worldwide for children to 14 days, and no normal ranges. Performed By: #### 2 443161, 60498954, 22369113, 2180743, 57853010 ####[facility] [address] [place] [address] Troponin 0 Hr.on 09-17-2023 Troponin 11.70 pg/mL Normal 10.10-27.10 [facility] Comment on above: Result Comment: The 95% CI (Confidence Interval) PPV (Positive Predictive Value) for myocardial infarction in females is 38 pg/mL, in males 51 pg/mL. The results should be used in conjunction with clinical conditions of myocardial infarction.(Access High Sensitivity Troponin I Instructions For Use, Marlys paOnde, March 2018) Performed By: #### 2 488502, 24774270, 86094418, 0957051, 66360660 ####[address] [place] [address] XR Chest Single Viewon 09-17 XR Chest Single View Normal [facility] eGFRon 09-17-2023 eGFR 90 mL/min/1.73 m2 Normal >=59 [facility] Comment on above: Order Comment: Order added by Discern Expert. Performed By: #### 2 000731, 85808950, 11245452, 3596077, 58361269 ####[facility] [address] [place] [address] BMPon 09-12-2023 Anion gap [Moles/Vol] 12 mmol/L Normal 6-16 [facility] Comment on above: Performed By: #### 1 1992399, 8033960, 3764917, 29799223 ####[facility] [address] [place] [address] BUN/Creat Ratio 27 No Units High 10-20 [facility] Comment on above: Performed By: #### 1 6663750, 0292187, 3424745, 96876725 ####[facility] [address] [place] [address] Calcium [Mass/Vol] 9.5 mg/dL Normal 8.9-11.1 [facility] Comment on above: Performed By: #### 1 6587169, 9057890, 5396143, 62726529 ####[facility] [address] [facility] [place] [address] Chloride [Moles/Vol] 101 mmol/L Normal 101-111 [facility] Comment on above: Performed By: #### 1 7931408, 8619320, 2844981, 17325674 ####[facility] [address] [place] [address] CO2 [Moles/Vol] 27 mmol/L Normal 21-31 [facility] Comment on above: Performed By: #### 1 2140233, 7449400, 9166666, 51964650 ####[facility] [address] [place] [address] Creatinine [Mass/Vol] 0.9 mg/dL Normal 0.5-1.3 [facility] Comment on above: Performed By: #### 1 8658879, 0463936, 3623848, 10367815 ####[facility] [address] [place] [address] Glucose [Mass/Vol] 87 mg/dL Normal 55-199 [facility] Comment on above: Performed By: #### 1 7128469, 2637864, 3089909, 26567029 ####[facility] [address] [place] [address] Potassium [Moles/Vol] 4.9 mmol/L Normal 3.5-5.3 [facility] Comment on above: Performed By: #### 1 7288478, 4669846, 1435243, 62912666 ####[facility] [address] [place] [address] Sodium [Moles/Vol] 135 mmol/L Normal 135-145 [facility] Comment on above: Performed By: #### 1 3621249, 8053458, 2492995, 26665450 ####[facility] [address] [place] [address] Urea nitrogen [Mass/Vol] 24 mg/dL High 5-21 [facility] Comment on above: Performed By: #### 1 2392805, 7460773, 1911694, 30266547 ####[facility] [address] [place] [address] CBC w/ Auto Diffon 4 Basophil Absolute 0.1 E9/L Normal 0.0-0.2 [facility] Comment on above: Performed By: #### 1 5270373, 0318422, 4172870, 10876753 ####[address] [address] Basophils/100 WBC (Bld) 1.1 % Normal 0.0-2.0 [facility] Comment on above: Performed By: #### 1 8609758, 5873028, 4541854, 73002962 ####[address] [address] Eos Absolute 0.1 E9/L Normal 0.0-0.5 [facility] Comment on above: Performed By: #### 1 5411867, 5937006, 5159857, 16237869 ####[address] [address] Eosinophils/100 WBC (Bld) 1.2 % Normal 0.0-8.0 [facility] Comment on above: Performed By: #### 1 5062031, 1305552, 7380772, 10759457 ####[address] [address] Erythrocyte distribution width (RBC) [Ratio] 13.7 % Normal 10.9-14.2 [facility] Comment on above: Performed By: #### 1 8356907, 2443233, 5237586, 94102916 ####[address] [address] Hematocrit (Bld) [Volume fraction] 41.0 % Normal 34.0-46.0 [facility] Comment on above: Performed By: #### 1 5455411, 2200203, 3451704, 69341689 ####[address] [address] Hemoglobin (Bld) [Mass/Vol] 13.4 g/dL Normal 12.0-16.0 [facility] Comment on above: Performed By: #### 1 1919014, 8666898, 9941717, 97923813 ####[address] [address] Lymph Absolute 1.9 E9/L Normal 1.0-4.0 [facility] Comment on above: Performed By: #### 1 8503114, 6808420, 7494214, 95408566 ####[address] [address] Lymphocytes/100 WBC (Bld) 25.9 % Normal 14.0-50.0 [facility] [facility] Comment on above: Performed By: #### 1 [id number], [id number], [id number], [id number] ####[address] [address] MCH (RBC) [Entitic mass] 29.5 pg Normal 27.0-34.0 [facility] Comment on above: Performed By: #### 1 [id number], 9117186, 8697044, [id number] ####[address] [address] MCHC (RBC) [Mass/Vol] 32.9 g/dL Normal 31.4-36.0 [facility] Comment on above: Performed By: #### 1 [id number], [id number], 0366749, [id number] ####[address] [address] MCV (RBC) [Entitic vol] 89.6 fL Normal 80.0-100.0 [facility] Comment on above: Performed By: #### 1 [id number], 6942778, 2754284, [id number] ####[facility] [address] [place] [address] [place] Absolute 0.6 E9/L Normal 0.2-1.0 [facility] Comment on above: Performed By: #### 1 [id number], 3451545, 1180165, [id number] ####[address] [place] [address] Monocytes/100 WBC (Bld) 8.0 % Normal 4.0-14.0 [facility] Comment on above: Performed By: #### 1 [id number], 3534141, 2778776, 20775125 ####[address] [place] [address] Neutro Absolute 4.7 E9/L Normal 2.0-7.5 [facility] Comment on above: Performed By: #### 1 [id number], 6481690, 6326275, [id number] ####[address] [address] Neutro Auto 63.8 % Normal 36.0-75.0 [facility] Comment on above: Performed By: #### 1 3972591, 5079564, 8819107, [id number] ####[address] [place] [address] Platelet 214.0 E9/L Normal 150.0-500.0 [facility] Comment on above: Performed By: #### 1 1094016, 1810409, 7379603, [id number] ####[facility] [address] [place] [address] Platelet mean volume (Bld) [Entitic vol] 8.2 fL Normal 6.4-10.8 [facility] Comment on above: Performed By: #### 1 0267154, 4608430, 5112830, 29356337 ####[address] [place] [address] RBC 4.6 E12/L Normal 4.3-5.9 [facility] Comment on above: Performed By: #### 1 3750977, 1100926, 6138909, 27299046 ####[facility] [address] [place] [address] WBC 7.4 E9/L Normal 4.0-11.0 [facility] Comment on above: Performed By: #### 1 9523054, 1828712, 4723625, 93794432 ####[facility] [address] [place] [address] CHEMISTRYOrdered By: Maryan Frost on 09-12-2023 U Amph Scr Negative Invalid Interpretation Code Remisol Chem U Hayley Scr Negative Invalid Interpretation Code Remisol Chem U Benzodia Scr Negative Invalid Interpretation Code Remisol Chem U Cannab Scr Negative Invalid Interpretation Code Remisol Chem U Cocaine Scr Negative Invalid Interpretation Code Remisol Chem U Opiate Scr Negative Invalid Interpretation Code Remisol Chem U PCP Scr Negative Invalid Interpretation Code Remisol Chem CHEMISTRYOrdered By: SYSTEM SYSTEM on 09-12-2023 Anion gap [Moles/Vol] 12 mmol/L Normal 6 - 16 mEq/L R emisol Chem Calcium [Mass/Vol] 9.5 mg/dL Normal 8.9 - 11. 1 mg/dL Remisol Chem Chloride [Moles/Vol] 101 mmol/L Normal 101 - 1 11 mmol/L Remisol Chem CO2 [Moles/Vol] 27 mmol/L Normal 21 - 31 mmol/L Remisol Chem Creatinine [Mass/Vol] 0.9 mg/dL Normal 0.5 - 1.3 mg/dL Remisol Chem eGFR 66 mL/min/1.73 m2 Normal >=59mL/min /1 .73 m2 Remisol Chem Glucose [Mass/Vol] 87 mg/dL Normal 55 - 199 mg/dL Remisol Chem Potassium [Moles/Vol] 4.9 mmol/L Normal 3.5 - 5.3 mmol/L Remisol Chem Sodium [Moles/Vol] 135 mmol/L Normal 135 - 145 mmol/L Remisol Chem Troponin 12.70 pg/mL Normal 10.10 - 27.10 pg/mL Remisol Chem Comment on above: Interpretive Data: T he 95% CI (Confidence Interval) PPV (Positive Predictive Value) for myocardial infarction in females is 38 pg/mL, in males 51 pg/mL. The results should be used in conjunction with clinical conditions of myocardial infarction. (Access High Sensitivity Troponin I Instructions For Use, Marly[facility] [place], March 2018) Urea nitrogen [Mass/Vol] 24 mg/dL High 5 - 21 mg/dL Remisol Chem Urea nitrogen/Creatinine [Mass ratio] 27 mg/mg High 10 - 20 Remisol Chem CHEMISTRYOrdered By: Lab ROP User on 09-12-2023 Glucose [Mass/Vol] 96 mg/dL Normal 55 - 99 mg/dL [facility] Comment on above: Result Comment: Neli cain RN/ POC Device SN [id number] Invalid Interpretation Code [facility] Subsection POC User ID [id number] 1 Invalid Interpretation Code [facility] Sub[facility] POC Username CORINNE COTA Invalid Interpretation Code [facility] Subsection CNPNon 09-12-2023 CNPN Telephone (CARDHOSP) ASYA ASENCIO I ([id number]) 1950 F Date Time Provider Department 09/12/23 MARTHA GALVEZ During your visit today, we recorded the following information about you: Martha Galvez MD 09/12/2023 3:10 AM Signed Cardiology Brief Plan of Care Note: Name: Asya Asencio : 1950 Asya Asencio is a 73 year old female with a complex medical history and recent admission paged this evening in distress to discuss her symptoms. She describes light head, dizziness, recent low blood pressure readings , palpitations, rigors, anxiety, and generalized malaise. Seeing all of the above, I advised urgent medical evaluation in the nearest emergency department. I advised that the patient not drive herself as it would be unsafe, and that she should have paramedics or friends/family transport her. She relayed back her understanding of this and plans to seek medical care. Martha Galvez MD PGY 5 [employer] Specialist Heart,Vascular, and Thoracic [facility] Allergies As of Date: 09/12/2023 Noted Allergy Reaction CEPHALEXIN 01/30/2023 16 - Unknown DEMORAL (MEPERIDINE) 05/14/2010 14 - Other: See Comments Comments: Patient does not know if she is allergic but know she is not suppose to take it. EGG 08/29/2023 5 - Intolerance 8 - GI Upset Comments: Per patient. LATEX 09/26/2012 2 - Rash 4 - Hives MORPHINE 04/12/2023 16 - Unknown Comments: Other Reaction(s): Unknown cause SULFA (SULFONAMIDE ANTIBIOTICS) 07/25/2023 5 - Intolerance Date Reviewed: 08/31/2023 Reviewed by: Latisha Leung (Rn)(Hist), RN - Fully Assessed Prescriptions as of 09/12/2023 - apixaban (ELIQUIS) 5 mg tab(s) Take 1 tablet by mouth two times a day. - atorvastatin (LIPITOR) 40 mg tablet Take 1 tablet by mouth daily at bedtime. - carvedilol (COREG) 12.5 mg tablet Take 1 tablet by mouth two times a day with meals. - polyethylene glycol 3350 17 gram/dose powder Take 17 g by mouth once daily as needed. Dissolve dose in 4 - 8 ounces of liquid and take as directed. - spironolactone (ALDACTONE) 25 mg tablet Take a half tablet by mouth once daily. - valsartan (DIOVAN) 80 mg tablet Take 1 tablet by mouth once daily. - digoxin (LANOXIN) 125 mcg (0.125 mg) tablet Take HALF tablet by mouth daily (not one complete tablet) - LORazepam (ATIVAN) 1 mg tablet Take 1 mg by mouth every 6 hours as needed for anxiety. Problem List As Of Date 09/12/2023 Noted Resolved INTESTINAL OBSTRUCT NOS [K56.609] 03/13/2009 Incomplete bladder emptying [R33.9] 09/26/2012 Non-rheumatic mitral regurgitation [I34.0] 07/25/2023 Nonrheumatic tricuspid valve regurgitation [I36*07/25/2023 Mitral valve regurgitation due to cardiomyopath* 024 Acute on chronic systolic congestive heart fail*08/26/2023 08/27/2023 Cardiomyopathy, nonischemic (HCC) [I42.8] 08/26/2023 Atrial fibrillation, persistent (HCC) [I48.19] 08/27/2023 Anxiety [F41.9] 08/27/2023 Urethral stricture [N35.919] 08/27/2023 Primary hypertension [I10] 08/27/2023 Adjustment disorder with mixed anxiety and depr*08/29/2023 Generalized anxiety disorder [F41.1] 08/29/2023 Severe protein-calorie malnutrition (HCC) [E43] 08/30/2023 Encounter Status:Closed by MARTHA GALVEZ on 09/12/23 Normal [facility] CNPN Telephone (CARCMN) ASYA ASENCIO I ([id number]) 1950 F Date Time Provider Department 09/12/23 ALEA HARLEY CARCMN During your visit today, we recorded the following information about you: Junito Mendes 09/12/2023 9:26 AM Signed September 12, 2023 Patient Contact Number: [phone] Patient last seen within the last year: Yes Date of last office visit: 08/23/2023 Reason For Call: Medication Issue/Question: Pt went to the ED last night/early this morning regarding symptoms she states she's been experiencing for 3 nights; stats she has really bad acid reflux that makes it hard to eat; also describes having tremors while waking up in a dreamlike state; has also been very dizzy with a headache and lightheaded to the point that she almost fell; pt states ED told her to not take her valsartan until she speaks with Dr. Harley; advised that the doctor is out of the office until , but I would get this to the RNs and a covering physician Pt also advised to reach out to PCP regarding bad acid reflux Physician: Alea Harley MD Patient was informed that non-urgent calls may be returned within the next three business days. Yes Junito Vale 09/12/2023 3:31 PM Signed Pt following up on previous message; states she was able to speak with FACILITY COORDINATOR in her PCP's office since he is out today and get something to treat her stomach issues; is concerned about stopping valsartan for several days while she waits for Dr. Harley; wants to know if anyone will be able to tell her if she should continue taking the medication today; please advise Lydia Valentin 09/13/2023 8:24 AM Signed Patient called back asking about the medication if she should continue to stay off of it (valsartan) states she felt better just concerned if she should be on something else instead. Explained Dr. Harley is out of the office and will return tomorrow. Lydia Valentin September 13, 2023 8:24 AM Junito Mendes 09/13/2023 12:24 PM Signed Pt calling again in regard to previous message; states that she did not take valsartan yesterday and she slept through the night and is feeling better since stopping it; would like to know if there is an alternative to the valsartan and is requesting that any new Rx be sent to [facility] on file Junito Mendes 09/13/2023 3:18 PM Signed Pt calling again in regards to previous messages; I informed her that the doctor is out of the office and will not be back until tomorrow; she states that even though she is feeling better and is no longer having negative symptoms, she is concerned about being off the valsartan without a replacement Kim Greenberg, ROCÍO 09/15/2023 5:[address] Harley, Valsartan is ideal here. Try half a tablet at bedtime to get you to acclimate. Dr. Harley is now back in the office. Call Monday to discuss how you are doing on low dose. Kim Greenberg, RN 09/15/2023 5:23 PM Signed Called patient and let her know Dr. Harley wants her to take a half dosage at bedtime. Pt argumentative about not wanting to take due to side effects. Let her know that's why he wanted a half tablet. Pt agreeable and will let us know how she is doing next week. Kim Greenberg RN Allergies As of Date: 09/12/2023 Noted Allergy Reaction CEPHALEXIN 01/30/2023 16 - Unknown DEMORAL (MEPERIDINE) 05/14/2010 14 - Other: See Comments Comments: Patient does not know if she is allergic but know she is not suppose to take it. EGG 08/29/2023 5 - Intolerance 8 - GI Upset Comments: Per patient. LATEX 09/26/2012 2 - Rash 4 - Hives MORPHINE 04/12/2023 16 - Unknown Comments: Other Reaction(s): Unknown cause SULFA (SULFONAMIDE ANTIBIOTICS) 07/25/2023 5 - Intolerance Date Reviewed: 08/31/2023 Reviewed by: Latisha Leung (Rn)(Hist) RN - Fully Assessed Reason for Visit: Symptoms [3640] Medication Problem [65] Prescriptions as of 09/15/2023 - apixaban (ELIQUIS) 5 mg tab(s) Take 1 tablet by mouth two times a day. - atorvastatin (LIPITOR) 40 mg tablet Take 1 tablet by mouth daily at bedtime. - carvedilol (COREG) 12.5 mg tablet Take 1 tablet by mouth two times a day with meals. - polyethylene glycol 3350 17 gram/dose powder Take 17 g by mouth once daily as needed. Dissolve dose in 4 - 8 ounces of liquid and take as directed. - spironolactone (ALDACTONE) 25 mg tablet Take a half tablet by mouth once daily. - valsartan (DIOVAN) 80 mg tablet Take 1 tablet by mouth once daily. - digoxin (LANOXIN) 125 mcg (0.125 mg) tablet Take HALF tablet by mouth daily (not one complete tablet) - LORazepam (ATIVAN) 1 mg tablet Take 1 mg by mouth every 6 hours as needed for anxiety. Problem List As Of Date 09/12/2023 Noted Resolved INTESTINAL OBSTRUCT NOS [K56.609] 03/13/2009 Incomplete bladder emptying [R33.9] 09/26/2012 Non-rheumatic mitral regurgitat (more content not included)... Normal [facility] CT Head or Brain w/o Contras ton 09-12-2023 CT Head or Brain w/o Contrast Normal [facility] Capillary Glucose POCon 08-16 Glucose [Mass/Vol] 96 mg/dL Normal 55-99 [facility] Comment on above: Result Comment: Neli cain RN/ Performed By: #### 2 [id number] ####[facility] [address] [place] [address] Consent for Treatmenton 08-16 Consent for Treatment [id number] .00TIFF Normal [facility] Discharge Instructionson Discharge Instructions [id number] .00TIFF Normal [facility] ED Clinical Summaryon 2023 ED Clinical Summary Normal [place] ED Note-Physicianon 09-12-19 ED Note-Physician Normal [facility] Comment on above: Result Comment: Elec tronically Signed By: Armen LINDSEY, Parveen SElise\.br\Date and Time Signed: 09/12/23 06:35 EST ED Patient Education Noteon 09-12-2023 ED Patient Education Note Normal [facility] ED Patient Summaryon 024 ED Patient Summary Normal [facility] HEMATOLOGYOrdered By: SYSTEM SYSTEM on 09-12-2023 Basophil Absolute 0.1 E9/L Normal 0.0 - 0.2 E9/L Remisol Heme Basophils/100 WBC (Bld) 1.1 % Normal 0.0 - 2.0 % Remisol Heme Eos Absolute 0.1 E9/L Normal 0.0 - 0.5 E9/L Remisol Heme Eosinophils/100 WBC (Bld) 1.2 % Normal 0.0 - 8.0 % Remisol Heme Erythrocyte distribution width (RBC) [Ratio] 13.7 % Normal 10.9 - 14.2 % Remisol Heme Hematocrit (Bld) [Volume fraction] 41.0 % Normal 34.0 - 46.0 % Remisol Heme Hemoglobin (Bld) [Mass/Vol] 13.4 g/dL Normal 12.0 - 16.0 gm/dL Remisol Heme Lymph Absolute 1.9 E9/L Normal 1.0 - 4.0 E9/L Remisol Heme Lymphocytes/100 WBC (Bld) 25.9 % Normal 14.0 - 50.0 % Remisol Heme MCH (RBC) [Entitic mass] 29.5 pg Normal 27.0 - 34.0 pg Remisol Heme MCHC (RBC) [Mass/Vol] 32.9 g/dL Normal 31.4 - 36.0 gm/dL Remisol Heme MCV (RBC) [Entitic vol] 89.6 fL Normal 80.0 - 100.0 fL Remisol Heme [place] Absolute 0.6 E9/L Normal 0.2 - 1.0 E9/L Remisol Heme Monocytes/100 WBC (Bld) 8.0 % Normal 4.0 - 14.0 % Remisol Heme Neutro Absolute 4.7 E9/L Normal 2.0 - 7.5 E9/L Remisol Heme Neutro Auto 63.8 % Normal 36.0 - 75.0 % Remisol Heme Platelet 214.0 E9/L Normal 150.0 - 500.0 E9/L Remisol Heme Platelet mean volume (Bld) [Entitic vol] 8.2 fL Normal 6.4 - 10.8 fL Remisol Heme RBC 4.6 E12/L Normal 4.3 - 5.9 E12/L Remisol Heme WBC 7.4 E9/L Normal 4.0 - 11.0 E9/L Remisol Heme Monitor Recordon 09-12-2023 Monitor Record [id number] 1.00TIFF Normal [facility] Troponin 0 Hr.on 09-12-2023 Troponin 12.70 pg/mL Normal 10.10-27.10 [facility] Comment on above: Result Comment: The 95% CI (Confidence Interval) PPV (Positive Predictive Value) for myocardial infarction in females is 38 pg/mL, in males 51 pg/mL. The results should be used in conjunction with clinical conditions of myocardial infarction.(Access High Sensitivity Troponin I Instructions For Use, Marly[facility] [place], March 2018) Performed By: #### 1 [id number], 5178613, 0686329, [id number] ####[facility] [address] [place] [address] U Drug Screenon 09-12-2023 U Amph Scr Negative Invalid Interpretation Code [facility] Comment on above: Performed By: #### 2 [id number] ####[facility] [address] [place] [address] U Hayley Scr Negative Invalid Interpretation Code [facility] Comment on above: Performed By: #### 2 555284 ####[facility] [address] [place] [address] U Benzodia Scr Negative Invalid Interpretation Code [facility] Comment on above: Performed By: #### 2 [id number] ####[facility] [address] [place] [address] U Cannab Scr Negative Invalid Interpretation Code [facility] Comment on above: Performed By: #### 2 [id number] ####[facility] [address] [place] [address] U Cocaine Scr Negative Invalid Interpretation Code [facility] Comment on above: Performed By: #### 2 [id number] ####[facility] [address] [place] [address] U Opiate Scr Negative Invalid Interpretation Code [facility] Comment on above: Performed By: #### 2 [id number] ####[facility] [address] [place] [address] U PCP Scr Negative Invalid Interpretation Code [facility] Comment on above: Performed By: #### 2 [id number] ####[facility] [address] [place] [address] UA With Cult Reflexon 2023 Bilirubin Ql (U) Negative Normal Negative [facility] Comment on above: Performed By: #### 1 [id number] ####[facility] [address] [place] [address] Clarity (U) CLEAR Normal Clear [facility] Comment on above: Performed By: #### 1 [id number] ####[facility] [address] [place] [address] Color (U) STRAW Invalid Interpretation Code [facility] Comment on above: Performed By: #### 1 [id number] ####[facility] [address] [place] [address] Epithelial cells.squamous LM.HPF (Urine sed) [#/Area] 0-2 Normal 0-2 [facility] Comment on above: Performed By: #### 1 [id number] ####[address] [address] Glucose Test strip (U) [Mass/Vol] Negative Normal Negative [facility] Comment on above: Performed By: #### 1 [id number] ####[address] [address] Hemoglobin Ql (U) 1+ Abnormal Negative [facility] Comment on above: Performed By: #### 1 [id number] ####[address] [address] Ketones (U) [Mass/Vol] Negative Normal Negative [facility] Comment on above: Performed By: #### 1 [id number] ####[address] [address] [place].plasma/[place] .RBC (Bld) [Mass ratio] 0-3 Normal 0-3 [facility] Comment on above: Performed By: #### 1 [id number] ####[address] [address] Nitrite Ql (U) Negative Normal Negative [facility] Comment on above: Performed By: #### 1 [id number] ####[address] [address] pH (U) 7.0 [pH] Invalid Interpretation Code 5.0-9.0 [facility] Comment on above: Performed By: #### 1 [id number] ####[address] [address] Protein (U) [Mass/Vol] Negative Normal Negative [facility] Comment on above: Performed By: #### 1 [id number] ####[address] [address] Specific gravity (U) [Rel density] <=1.005 Invalid Interpretation Code 1.005-1.030 [facility] Comment on above: Performed By: #### 1 [id number] ####[facility] [address] [place] [address] Type of Urine collection method Clean Catch Normal [facility] Comment on above: Performed By: #### 1 [id number] ####[facility] [address] [place] [address] Urobilinogen Qn (U) 0.2 {Judith'U}/dL Normal 0.0-1.0 [facility] Comment on above: Performed By: #### 1 [id number] ####[facility] [address] [place] [address] WBC Auto Ql (U) TRACE Abnormal Negative [facility] Comment on above: Performed By: #### 1 [id number] ####[facility] [address] [place] [address] WBC LM.HPF (Urine sed) [#/Area] 0-5 Normal 0-5 [facility] Comment on above: Performed By: #### 1 [id number] ####[facility] [address] [place] [address] URINALYSISOrdered By: Ethan Frost on 09-12-2023 Bilirubin Ql (U) Negative (09/12/23 4:53 AM) Normal Negative [facility] UA Auto SS Clarity (U) Clear (09/12/23 4:53 AM) Normal Clear [facility] UA Auto SS Color (U) STRAW Invalid Interpretation Code [facility] UA Auto SS Epithelial cells.squamous LM.HPF (Urine sed) [#/Area] 0-2 /HPF Normal 0-2/HPF [facility] UA Aut o SS Glucose Test strip (U) [Mass/Vol] Negative (09/12/23 4:53 AM) Normal Negative [facility] UA Auto SS Hemoglobin Ql (U) 1+ *ABN* (09/12/23 4:53 AM) Invalid Interpretation Code Negative [facility] UA Auto SS Ketones (U) [Mass/Vol] Negative (09/12/23 4:53 AM) Normal Negative [facility] UA Auto SS [place].plasma/[place] .RBC (Bld) [Mass ratio] 0-3 /HPF Normal 0-3/HPF [facility] UA Auto SS Nitrite Ql (U) Negative (09/12/23 4:53 AM) Normal Negative [facility] UA Auto SS pH (U) 7.0 *NA* (09/12/23 4:53 AM) Invalid Interpretation Code 5.0 - 9.0 [facility] UA Auto SS Protein (U) [Mass/Vol] Negative (09/12/23 4:53 AM) Normal Negative [facility] UA Auto SS Specific gravity (U) [Rel density] <=1.005 *NA* (09/12/23 4:53 AM) Invalid Interpretation Code 1.005 - 1.030 [facility] UA Auto SS UA Spec Desc Clean Catch (09/12/23 4:53 AM) Normal [facility] UA Auto SS Urobilinogen Qn (U) 0.5165567 {Judith'U}/dL Normal 0.0 - 1.0 EU/dL [facility] UA Auto SS WBC Auto Ql (U) Trace *ABN* (09/12/23 4:53 AM) Invalid Interpretation Code Negative [facility] UA Auto SS WBC LM.HPF (Urine sed) [#/Area] 0-5 /HPF Normal 0-5/HPF [facility] UA Auto SS XR Chest Single Viewon 09-12 XR Chest Single View Normal [facility] eGFRon 09-12-2023 eGFR 66 mL/min/1.73 m2 Normal >=59 [facility] Comment on above: Order Comment: Order added by Discern Expert. Performed By: #### 1 [id number], [id number], [id number], [id number] ####[facility] [address] [place] [address] Samia 09-07-2023 TALIBN Telephone (PODCCP) ASYA ASENCIO I ([id number]) 1950 F Date Time Provider Department 09/07/23 LE LEYVA During your visit today, we recorded the following information about you: Le Leyva, RN 09/07/2023 3:00 PM Signed Pt contacted for discharge follow up from recent hospital stay. Pt verified name and . Pt voicing questions about transferirng prescriptions to new pharmacy and concerns about lower BP in the upper 90's since our last phone call. Pt instructed to call her local pharmacy or PCP for refills of prescriptions and to monitor her BP and report any lower readings and/or symptoms to MD or 24 hour nurse resource line which was given to pt again. Closing comments given including reminder of 24 hour nurse resource line in discharge paperwork. Allergies As of Date: 09/07/2023 Noted Allergy Reaction CEPHALEXIN 01/30/2023 16 - Unknown DEMORAL (MEPERIDINE) 05/14/2010 14 - Other: See Comments Comments: Patient does not know if she is allergic but know she is not suppose to take it. EGG 08/29/2023 5 - Intolerance 8 - GI Upset Comments: Per patient. LATEX 09/26/2012 2 - Rash 4 - Hives MORPHINE 04/12/2023 16 - Unknown Comments: Other Reaction(s): Unknown cause SULFA (SULFONAMIDE ANTIBIOTICS) 07/25/2023 5 - Intolerance Date Reviewed: 08/31/2023 Reviewed by: Latisha Leung (Rn)(Hist), RN - Fully Assessed Reason for Visit: Follow Up Phone Call [[id number]] Cmt: Relate care discharge follow up-day 6-[id number]-smw clear Prescriptions as of 09/07/2023 - apixaban (ELIQUIS) 5 mg tab(s) Take 1 tablet by mouth two times a day. - atorvastatin (LIPITOR) 40 mg tablet Take 1 tablet by mouth daily at bedtime. - carvedilol (COREG) 12.5 mg tablet Take 1 tablet by mouth two times a day with meals. - polyethylene glycol 3350 17 gram/dose powder Take 17 g by mouth once daily as needed. Dissolve dose in 4 - 8 ounces of liquid and take as directed. - spironolactone (ALDACTONE) 25 mg tablet Take a half tablet by mouth once daily. - valsartan (DIOVAN) 80 mg tablet Take 1 tablet by mouth once daily. - digoxin (LANOXIN) 125 mcg (0.125 mg) tablet Take HALF tablet by mouth daily (not one complete tablet) - LORazepam (ATIVAN) 1 mg tablet Take 1 mg by mouth every 6 hours as needed for anxiety. Problem List As Of Date 09/07/2023 Noted Resolved INTESTINAL OBSTRUCT NOS [K56.609] 03/13/2009 Incomplete bladder emptying [R33.9] 09/26/2012 Non-rheumatic mitral regurgitation [I34.0] 07/25/2023 Nonrheumatic tricuspid valve regurgitation [I36*07/25/2023 Mitral valve regurgitation due to cardiomyopath* 024 Acute on chronic systolic congestive heart fail*08/26/2023 08/27/2023 Cardiomyopathy, nonischemic (HCC) [I42.8] 08/26/2023 Atrial fibrillation, persistent (HCC) [I48.19] 08/27/2023 Anxiety [F41.9] 08/27/2023 Urethral stricture [N35.919] 08/27/2023 Primary hypertension [I10] 08/27/2023 Adjustment disorder with mixed anxiety and depr*08/29/2023 Generalized anxiety disorder [F41.1] 08/29/2023 Severe protein-calorie malnutrition (HCC) [E43] 08/30/2023 Encounter Status:Closed by LE [facility]VA [facility] ([facility]) ASYA ASENCIO I ([id number]) 1950 F Date Time Provider Department 09/01/23 CARLA OLIVERA During your visit today, we recorded the following information about you: Carla Olivera, ROCÍO 09/01/2023 2:47 PM Signed 1. Have you noticed any increase in shortness of breath since you left the hospital? No 2. Have you noticed any increased swelling in your feet, ankles, or belly? Skip for vascular pts No 3. Have you gained more than 2-3 pounds since discharge? Skip for vascular AND EP pts Unsure - Pt has not weighed self since discharge. 4. Have you noticed any change in your incision, wound, IV sites since you were discharged as we want you to be aware of any signs of infection (fevers, chills, redness, warmth, swelling, increased tenderness, discharge)? No 5. Are you having any increased pain since discharge? If yes: What type of pain and where? (pressure, sharp pain, dull pain, etc.) No 6. Have you had any unplanned trips to the emergency department or hospital since you were discharged? If yes - why? No 7. Did you fill all of the prescribed medications? If no, do you need help filling your prescription? (Figure out why they?re not filled) Yes 8. Do you have any questions about your medications? No 9. Do you have a doctor?s appointment scheduled or is someone working on getting you a follow-up appointment? Yes Additional Comments: Pt instructed to contact 24-hour nurse hotline for any questions or concerns. Pt verbalized understanding. PD nurse confirmed/verified patient's and full name. All clear. Closing statement given. Carla Olivera RN Allergies As of Date: 09/01/2023 Noted Allergy Reaction CEPHALEXIN 01/30/2023 16 - Unknown DEMORAL (MEPERIDINE) 05/14/2010 14 - Other: See Comments Comments: Patient does not know if she is allergic but know she is not suppose to take it. EGG 08/29/2023 5 - Intolerance 8 - GI Upset Comments: Per patient. LATEX 09/26/2012 2 - Rash 4 - Hives MORPHINE 04/12/2023 16 - Unknown Comments: Other Reaction(s): Unknown cause SULFA (SULFONAMIDE ANTIBIOTICS) 07/25/2023 5 - Intolerance Date Reviewed: 08/31/2023 Reviewed by: Latisha Leung (Rn)(Hist) RN - Fully Assessed Reason for Visit: Follow Up Phone Call [[id number]] Cmt: RC f/u all clear Prescriptions as of 09/01/2023 - apixaban (ELIQUIS) 5 mg tab(s) Take 1 tablet by mouth two times a day. - atorvastatin (LIPITOR) 40 mg tablet Take 1 tablet by mouth daily at bedtime. - carvedilol (COREG) 12.5 mg tablet Take 1 tablet by mouth two times a day with meals. - polyethylene glycol 3350 17 gram/dose powder Take 17 g by mouth once daily as needed. Dissolve dose in 4 - 8 ounces of liquid and take as directed. - spironolactone (ALDACTONE) 25 mg tablet Take a half tablet by mouth once daily. - valsartan (DIOVAN) 80 mg tablet Take 1 tablet by mouth once daily. - digoxin (LANOXIN) 125 mcg (0.125 mg) tablet Take HALF tablet by mouth daily (not one complete tablet) - LORazepam (ATIVAN) 1 mg tablet Take 1 mg by mouth every 6 hours as needed for anxiety. Problem List As Of Date 09/01/2023 Noted Resolved INTESTINAL OBSTRUCT NOS [K56.609] 03/13/2009 Incomplete bladder emptying [R33.9] 09/26/2012 Non-rheumatic mitral regurgitation [I34.0] 07/25/2023 Nonrheumatic tricuspid valve regurgitation [I36*07/25/2023 Mitral valve regurgitation due to cardiomyopath* 024 Acute on chronic systolic congestive heart fail*08/26/2023 08/27/2023 Cardiomyopathy, nonischemic (HCC) [I42.8] 08/26/2023 Atrial fibrillation, persistent (HCC) [I48.19] 08/27/2023 Anxiety [F41.9] 08/27/2023 Urethral stricture [N35.919] 08/27/2023 Primary hypertension [I10] 08/27/2023 Adjustment disorder with mixed anxiety and depr*08/29/2023 Generalized anxiety disorder [F41.1] 08/29/2023 Severe protein-calorie malnutrition (HCC) [E43] 08/30/2023 Encounter Status:Closed by CARLA OLIVERA on 09/01/23 [facility] ([id number]) 1950 F Date Time Provider Department 09/01/23 ALEA HARLEY During your visit today, we recorded the following information about you: Junito Mendes 09/01/2023 9:33 AM Signed September 01, 2023 Patient Contact Number: [phone] Patient last seen within the last year: Yes Date of last office visit: 08/23/2023 Reason For Call: Medication Issue/Question: Pt recently admitted and discharged; upon discharged, prescribed Eliquis and Valsartan, states she's never taken valsartan and wants to know if it's safe to take with the blood thinner Physician: Alea Harley MD Patient was informed that non-urgent calls may be returned within the next three business days. Yes Hilary Cespedes RN 09/01/2023 4:29 PM Addendum Let her know it is okay to take these two medications. Hilary Hill RN Allergies As of Date: 09/01/2023 Noted Allergy Reaction CEPHALEXIN 01/30/2023 16 - Unknown DEMORAL (MEPERIDINE) 05/14/2010 14 - Other: See Comments Comments: Patient does not know if she is allergic but know she is not suppose to take it. EGG 08/29/2023 5 - Intolerance 8 - GI Upset Comments: Per patient. LATEX 09/26/2012 2 - Rash 4 - Hives MORPHINE 04/12/2023 16 - Unknown Comments: Other Reaction(s): Unknown cause SULFA (SULFONAMIDE ANTIBIOTICS) 07/25/2023 5 - Intolerance Date Reviewed: 08/31/2023 Reviewed by: Latisha Leung (Rn)(Hist) RN - Fully Assessed Reason for Visit: Medication Question [1330] Cmt: Eliquis and Valsartan Prescriptions as of 09/01/2023 - apixaban (ELIQUIS) 5 mg tab(s) Take 1 tablet by mouth two times a day. - atorvastatin (LIPITOR) 40 mg tablet Take 1 tablet by mouth daily at bedtime. - carvedilol (COREG) 12.5 mg tablet Take 1 tablet by mouth two times a day with meals. - polyethylene glycol 3350 17 gram/dose powder Take 17 g by mouth once daily as needed. Dissolve dose in 4 - 8 ounces of liquid and take as directed. - spironolactone (ALDACTONE) 25 mg tablet Take a half tablet by mouth once daily. - valsartan (DIOVAN) 80 mg tablet Take 1 tablet by mouth once daily. - digoxin (LANOXIN) 125 mcg (0.125 mg) tablet Take HALF tablet by mouth daily (not one complete tablet) - LORazepam (ATIVAN) 1 mg tablet Take 1 mg by mouth every 6 hours as needed for anxiety. Problem List As Of Date 09/01/2023 Noted Resolved INTESTINAL OBSTRUCT NOS [K56.609] 03/13/2009 Incomplete bladder emptying [R33.9] 09/26/2012 Non-rheumatic mitral regurgitation [I34.0] 07/25/2023 Nonrheumatic tricuspid valve regurgitation [I36*07/25/2023 Mitral valve regurgitation due to cardiomyopath* 024 Acute on chronic systolic congestive heart fail*08/26/2023 08/27/2023 Cardiomyopathy, nonischemic (HCC) [I42.8] 08/26/2023 Atrial fibrillation, persistent (HCC) [I48.19] 08/27/2023 Anxiety [F41.9] 08/27/2023 Urethral stricture [N35.919] 08/27/2023 Primary hypertension [I10] 08/27/2023 Adjustment disorder with mixed anxiety and depr*08/29/2023 Generalized anxiety disorder [F41.1] 08/29/2023 Severe protein-calorie malnutrition (HCC) [E43] 08/30/2023 Encounter Status:Closed by JUNITO MENDES on 09/01/23 Normal [facility] CBC panel Auto (Bld)on 08-31 Erythrocyte distribution width (RBC) [Ratio] 12.9 % Normal 11.5-15.0 [facility] Comment on above: Order Comment: Speci men Type: BLOOD SPECIMEN Ordering Facility: [facility] Address: [address] [place] [address] [place] [address] Performed By: #### 2 8087-8, 71872-2 #### [facility] CLIA [id number] [address] [place] [address] [place] Hematocrit (Bld) [Volume fraction] 36.1 % Normal 36.0-46.0 [facility] Comment on above: Order Comment: Speci men Type: BLOOD SPECIMEN Ordering Facility: [facility] Address: [address] [place] [address] Performed By: #### 2 4323-8, 52722-2 #### [facility] CLIA [id number] [address] [place] [address] [place] Hemoglobin (Bld) [Mass/Vol] 11.9 g/dL Normal 11.5-15.5 [facility] Comment on above: Order Comment: Speci men Type: BLOOD SPECIMEN Ordering Facility: [facility] Address: [address] [place] [address] Performed By: #### 2 4323-8, 52122-8 #### [facility] CLIA [id number] [address] [place] [address] [place] MCH (RBC) [Entitic mass] 29.5 pg Normal 26.0-34.0 [facility] Comment on above: Order Comment: Speci men Type: BLOOD SPECIMEN Ordering Facility: [facility] Address: [address] [place] [address] Performed By: #### 2 4323-8, 34417-3 #### [facility] CLIA [id number] [address] [place] [address] [place] MCHC (RBC) [Mass/Vol] 33.0 g/dL Normal 30.5-36.0 [facility] Comment on above: Order Comment: Speci men Type: BLOOD SPECIMEN Ordering Facility: [facility] Address: [address] [place] [address] Performed By: #### 2 4323-8, 66250-3 #### [facility] CLIA [id number] [address] [place] [address] [place] MCV (RBC) [Entitic vol] 89.4 fL Normal 80.0-100.0 [facility] Comment on above: Order Comment: Speci men Type: BLOOD SPECIMEN Ordering Facility: [facility] Address: [address] [place] [address] Performed By: #### 2 4323-8, 45123-0 #### [facility] CLIA [id number] [address] [place] [address] [place] Nucleated RBC (Bld) [#/Vol] 10*3/uL Normal <0.01 [facility] Comment on above: Order Comment: Speci men Type: BLOOD SPECIMEN Ordering Facility: [facility] Address: [address] [place] [address] Performed By: #### 2 4323-8, 64719-9 #### [facility] CLIA [id number] [address] [place] [address] [place] Platelet mean volume (Bld) [Entitic vol] 10.2 fL Normal 9.0-12.7 [facility] Comment on above: Order Comment: Speci men Type: BLOOD SPECIMEN Ordering Facility: [facility] Address: [address] [place] [address] Performed By: #### 2 4323-8, 65755-5 #### [facility] CLIA [id number] [address] [place] [address] [place] Platelets (Bld) [#/Vol] 175 10*3/uL Normal 150-400 [facility] Comment on above: Order Comment: Speci men Type: BLOOD SPECIMEN Ordering Facility: [facility] Address: [address] [place] [address] Performed By: #### 2 4323-8, 76742-1 #### [facility] CLIA [id number] [address] [place] [address] [place] RBC (Bld) [#/Vol] 4.04 10*6/uL Normal 3.90-5.20 [facility] Comment on above: Order Comment: Speci men Type: BLOOD SPECIMEN Ordering Facility: [facility] Address: [address] [place] [address] Performed By: #### 2 4323-8, 55561-2 #### [facility] CLIA [id number] [address] [place] [address] [place] WBC (Bld) [#/Vol] 6.11 10*3/uL Normal 3.70-11.00 [facility] Comment on above: Order Comment: Speci men Type: BLOOD SPECIMEN Ordering Facility: [facility] Address: [address] [place] [address] Performed By: #### 2 4323-8, 98235-4 #### [facility] CLIA [id number] [address] [place] [address] OF [place] CNDSon 08-31-2023 [facility] HNO ID: [id number] Author: VIRY MIDDLETON MD Service: Cardiovascular Medicine Author Type: Physician Type: Discharge Summary Filed: 08/31/2023 15:24 Note Text: DISCHARGE SUMMARY PATIENT NAME: Asya Asencio ADMISSION DATE: 08/24/2023 DISCHARGE DATE: August 31, 2023 Attending Physician: Viry Middleton MD Code Status: Full Code Highest Readmission Risk Score: 12 The 30 day readmissions risk score is derived from an internally validated risk model which evaluates patient level characteristics, utilization history, medication orders and lab results up until the day of discharge. Patients with a score of 40 or above are considered highest risk for readmission. Specific patient level drivers will be listed at the bottom of the summary. Reason for Hospitalization: mild shortness of breath Diagnosis: Principal Problem: Mitral valve regurgitation due to cardiomyopathy (HCC) (POA: Yes) Active Problems: Cardiomyopathy, nonischemic (HCC) (POA: Yes) Atrial fibrillation, persistent (HCC) (POA: Yes) Anxiety (POA: Yes) Urethral stricture (POA: Yes) Primary hypertension (POA: Yes) Adjustment disorder with mixed anxiety and depressed mood (POA: Unknown) Generalized anxiety disorder (POA: Unknown) Severe protein-calorie malnutrition (HCC) (POA: Yes) Resolved Problems: Acute on chronic systolic congestive heart failure (HCC) (POA: Yes) Transitions of Care Critical Issues: SPECIALIST FOLLOW-UP: Requested: 1) Cardiology with Dr. Harley for GDMT titration / post hospital follow up on 10/23/2023 2) Urology, specifically [facility] (female pelvic medicine AND reproductive surgery) for urinary discomfort and hx of urinary stricture s/p dilation. If you don't see an appointment on my chart within 3 business days of your discharge please call [phone]. 3) Psychiatry to discuss management of your anxiety and how to improve the regimen of your anxiety medications (lorazepam). If you don't see an appointment on my chart within 3 business days of your discharge please call [phone]. 4) Psychotherapy to promote use of adaptive strategies to manage current stressors [facility]Z MEDICATION CHANGES: - STOPPED: losartan - STARTED: valsartan 80 mg daily, spironolactone 12.5 mg daily - CHANGED: carvedilol to 12.5 mg BID, digoxin 0.0625mg Hospital Course: Mrs Asya Asencio is a 73 year old female with medical history significant for NICM, HF mildly reduced EF 45% (08/23/2023), Moderately severe MR and TR, hx of Afib with RVR (on eliqu), HTN, Urethral stricture s/p dilation (04/2023), S/p sigmoid colectomy with end-to-end anastomosis (1996), Anxiety who is admitted from Dr. Harley's clinic for inpatient evaluation of her shortness of breath in the setting of non-ischemic cardiomyopathy associated with mitral valve regurgitation. Upon review of imaging with clinical cardiology staff and cardiothoracic surgery, it was felt that the regurgitation was secondary to the non-ischemic cardiomyopathy and treatment should be focused on the management of this as the priority. Thus, GDMT was increased / started with discharge regimen including carvedilol 12.5 mg BID, spironolactone 12.5 mg daily, and valsartan 80 mg daily. She will need outpatient increase in her GDMT and re-evaluation of heart function after months at maximally tolerated GDMT. She was also evaluated by urology for history of urethral stricture s/p dilation. Urinary culture revealed Klebsiella oxytoca, and she was treated with a 3 days course of Ciprofloxacin (allergic to sulfa drugs and cephalexin). A post void residual was 305cc, and a 14 [place] robles was inserted on 08/28 and removed on 08/30 with proper voiding after that. Improvement was also made with pyridium; however, after 3 doses, patient had increased nausea and dizziness which was suspected to be a side effect to this medication and was stopped. A request was made to follow with the female pelvic medicine AND reproductive surgery team. She was also evaluated by psychiatry and psychology who recommended an outpatient follow-up. A problem based summary is below: #NICM suspect 2/2 tachycardia (atrial fibrillation) #HF with mildly reduced EF (45% on 08/23/2023 echo) #Secondary Mod-Severe MR #Mod-severe TR She is AHA stage B at the time, compensated well. While inpatient, GDMT increased / changed to: carvedilol 12.5 mg BID, spironolactone 12.5 mg daily, and valsartan 80 mg daily. Plan: - Would recommend further increase of carvedilol and spironolactone; consider sacubitril-valsartan as well as an SGLTi as outpatient. #Afib ([id number]) Rate controlled this admission (hx of RVR), on anticoagulation which should be continued. Rate control with beta yolette and digoxin 0.125 mg. On 08/28/23 rhythm control achieved with KRYSTINA DCCV, and digoxin was decreased by half. Plan: - Continue with digoxin 0.125 mg and carv (more content not included)... Normal [facility] Comprehensive metabolic 2000 panelon 08-31-2023 Albumin [Mass/Vol] 3.5 g/dL Low 3.9-4.9 [facility] Comment on above: Order Comment: Speci men Type: BLOOD SPECIMENOrdering Facility: [facility] Address: [address] [place], [place] [address] [address] Performed By: #### 2 2073-8, ####[facility] [id number] [place] [address] [place] ALP [Catalytic activity/Vol] 52 U/L Normal 34-123 [facility] Comment on above: Order Comment: Speci men Type: BLOOD SPECIMENOrdering Facility: [facility] Address: [address] [place] [address] Performed By: #### 2 432-8, ####[facility] [id number] [place] [address] [place] ALT [Catalytic activity/Vol] 24 U/L Normal 7-38 [facility] Comment on above: Order Comment: Speci men Type: BLOOD SPECIMENOrdering Facility: [facility] Address: [address] [place] [address] Performed By: #### 2 8, ####[facility] [id number] [place] [address] [place] Anion gap [Moles/Vol] 9 mmol/L Normal 9-18 [facility] Comment on above: Order Comment: Speci men Type: BLOOD SPECIMENOrdering Facility: [facility] Address: [address] [place] [address] Performed By: #### 2 4322-8, ####[facility] [id number] [place] [address] [place] AST [Catalytic activity/Vol] 20 U/L Normal 13-35 [facility] Comment on above: Order Comment: Speci men Type: BLOOD SPECIMENOrdering Facility: [facility] Address: [address] [place] [address] Performed By: #### 2 4323-8, ####[facility] [id number] [place] [address] [place] Bilirubin [Mass/Vol] 0.5 mg/dL Normal 0.2-1.3 [facility] Comment on above: Order Comment: Speci men Type: BLOOD SPECIMENOrdering Facility: [facility] Address: [address] [place] [address] Performed By: #### 2 4323-8, ####[facility] [id number] [place] [address] [place] Calcium [Mass/Vol] 9.2 mg/dL Normal 8.5-10.2 [facility] Comment on above: Order Comment: Speci men Type: BLOOD SPECIMENOrdering Facility: [facility] Address: [address] [place] [address] Performed By: #### 2 432-8, ####[facility] [id number] [place] [address] [place] Chloride [Moles/Vol] 103 mmol/L Normal 97-105 [facility] Comment on above: Order Comment: Speci men Type: BLOOD SPECIMENOrdering Facility: [facility] Address: [address] [place] [address] Performed By: #### 2 4322-8, ####[facility] [id number] [place] [address] [place] CO2 [Moles/Vol] 25 mmol/L Normal 22-30 [facility] Comment on above: Order Comment: Speci men Type: BLOOD SPECIMENOrdering Facility: [facility] Address: [address] [place] [address] Performed By: #### 2 4323-8, ####[facility] [id number] [place] [address] [place] Creatinine [Mass/Vol] 0.90 mg/dL Normal 0.58-0.96 [facility] Comment on above: Order Comment: Speci men Type: BLOOD SPECIMENOrdering Facility: [facility] Address: [address] [place] [address] Performed By: #### 2 4323-8, 62994-5 ####[facility] [id number] [place] [address] [place] Creatinine and Glomerular filtration rate.predicted panel (S/P/Bld) 67 mL/min/1.73m??? Normal >=60 [facility] Comment on above: Order Comment: Nichole becerra Type: BLOOD SPECIMENOrdering Facility: [facility] Address: [address] [place] [address] Result Comment: Shelley mated Glomerular Filtration Rate (eGFR) is calculated using the 2020 CKD-EPI creatinine equation. This equation utilizes serum creatinine, sex, and age as parameters. The creatinine assay has traceable calibration to isotope dilution-mass spectrometry. Refer to KDIGO guidelines for clinical interpretation. In patients with unstable renal function, e.g. those with acute kidney injury, the eGFR may not accurately reflect actual GFR. Performed By: #### 2 4323-8, 08223-8 ####[facility] [id number] [place] [address] [place] Glucose [Mass/Vol] 85 mg/dL Normal 74-99 [facility] Comment on above: Order Comment: Nichole becerra Type: BLOOD SPECIMENOrdering Facility: [facility] Address: [address] [place] [address] Result Comment: The [place] [employer] (ADA) provides guidance for cutoff values for fasting glucose and random glucose. The ADA defines fasting as no caloric intake for at least 8 hours. Fasting plasma glucose results between 100 to 125 mg/dL indicate increased risk for diabetes (prediabetes). Fasting plasma glucose results greater than or equal to 126 mg/dL meet the criteria for diagnosis of diabetes. In the absence of unequivocal hyperglycemia, results should be confirmed by repeat testing. In a patient with classic symptoms of hyperglycemia or hyperglycemic crisis, random plasma glucose results greater than or equal to 200 mg/dL meet the criteria for diagnosis of diabetes. Reference: Standards of Medical Care in Diabetes 2016, [place] [employer]. Diabetes Care. 2016.39(Suppl 1). Performed By: #### 2 8, ####[facility] [id number] [place] [id number] [place] Potassium [Moles/Vol] 4.3 mmol/L Normal 3.7-5.1 [facility] Comment on above: Order Comment: Speci men Type: BLOOD SPECIMENOrdering Facility: [facility] Address: [address] [place] [address] Performed By: #### 2 8, ####[facility] [id number] [place] [address] [place] Protein [Mass/Vol] 5.9 g/dL Low 6.3-8.0 [facility] Comment on above: Order Comment: Speci men Type: BLOOD SPECIMENOrdering Facility: [facility] Address: [address] [place] [address] Performed By: #### 2 4323-03, ####[facility] [id number] [place] [id number] [place] Sodium [Moles/Vol] 137 mmol/L Normal 136-144 [facility] Comment on above: Order Comment: Speci men Type: BLOOD SPECIMENOrdering Facility: [facility] Address: [address] [place], [place] [address] Performed By: #### 2 8, ####[facility] [id number] [place] [id number] [place] Urea nitrogen [Mass/Vol] 16 mg/dL Normal 7-21 [facility] Comment on above: Order Comment: Speci men Type: BLOOD SPECIMENOrdering Facility: [facility] Address: [address] [place] [address] Performed By: #### 2 4323-8, ####[facility] [id number] [place] [id number] [place] Magnesium SerPl-mCncon 08-31 Magnesium [Mass/Vol] 2.2 mg/dL Normal 1.7-2.3 [facility] Comment on above: Order Comment: Speci men Type: BLOOD SPECIMENOrdering Facility: [facility] Address: [address] [place] [address] Performed By: #### 2 4323-8, 91301-7 ####[facility] [id number] [id number] OF [facility] NUTRITIONon 08-31-2023 NUTRITION HNO ID: [id number] Author: KAMLA DUENAS RD Service: Nutrition Therapy Author Type: Registered Dietitian Type: Nutrition Filed: 08/31/2023 11:00 Note Text: NUTRITION BRIEF NOTE SERVICE DATE: 08/31/2023 Interval History: Consulted for food preferences. Patient reported that she was not able to order white bread for breakfast. As discussed with patient yesterday, adding the allergy to Epic will limit all foods that contain wheat. Patient requesting for allergy to be removed since she can tolerate some products with wheat. Patient also reports frustration with sodium restriction and limited options on menu with her reported allergies. Diet liberalized to 4 gm Na+ per collaboration with Viry Middleton MD. Care Plan: Change diet to : electrolyte controlled 4 gm Na+ Vitamins and Minerals: Multivitamin with minerals Medications: Anti-emetics;Stool softener;Laxative (PRN) Monitor and Evaluation: Meet greater than 75% of estimated needs, Monitor bowel function, Monitor fluid/electrolyte balance, Monitor labs, I/Os, vital signs, weight MNT Billing: $ Reassessment: 1-15 minutes SIGNATURE: Kamla Duenas RD DATE: 08/31/2023 TIME: 10:53 AM Normal [facility] PT EDon 08-31-2023 PT ED HNO ID: [id number] Author: FELISA RIBERA RPh Service: Pharmacy Author Type: Pharmacist Type: Patient Education Filed: 08/31/2023 11:32 Note Text: Heart Failure Counseling with Video Instruction Education Note Patient Name:Francois Ruiz Elif Service Date: 08/31/2023 Service Time: 11:32 AM Heart Failure Education Provided: Patient was provided video instruction of heart failure management, activity as tolerated, signs and symptoms of heart failure/worsening heart failure, and to contact their physician if exhibits these symptoms. Video instructed patient to contact his or her HF physician if his or her weight increases or decreases more than or equal to 4 lbs from dry weight. Medication Education Provided: 1. Reason for taking medications and treatment goals. 2. Benefits of medication therapy. 3. How medications work. 4. Necessary laboratory monitoring. 5. When to take medications and what to do if a dose is missed. 6. Drug interactions (Rx, OTC, herbal) and importance of notifying healthcare provider with any medication changes. 7. Potential duration of therapy. 8. Potential side effects of medications. 9. Use of control measures if applicable. 10. Importance of regularly filling prescriptions and taking medications. 11. Proper storage of medications. Heart Failure education via video instruction was documented by nursing staff. If additional medication education is warranted, please contact the pharmacy. Current Inpatient Medications: Current Facility-Administered Medications Medication Dose Route Frequency LORazepam 1 mg tab(s) (ATIVAN) 1 mg ORAL q 6 H PRN atorvastatin 40 mg tab(s) (LIPITOR) 40 mg ORAL AT BEDTIME acetaminophen 650 mg tab(s) (TYLENOL) 650 mg ORAL q 4 H PRN NaCl 0.9% iv flush bag 20 mL INTRAVENOUS PRN polyethylene glycol 3350 17 g packet 17 g ORAL DAILY PRN apixaban 5 mg tab(s) (ELIQUIS) 5 mg ORAL BID melatonin 6 mg tab(s) 6 mg ORAL/FEEDING TUBE DAILY (8 PM) senna 8.6 mg tab(s) (SENOKOT) 8.6 mg ORAL/FEEDING TUBE BID potassium chloride ER 10-60 mEq tab(s) (KLOR-CON M10) 10-60 mEq ORAL PRN carvedilol 12.5 mg tab(s) (COREG) 12.5 mg ORAL BID w MEALS valsartan 80 mg tab(s) (DIOVAN) 80 mg ORAL DAILY digoxin 0.0625 mg tab(s) (LANOXIN) 0.0625 mg ORAL DAILY spironolactone 12.5 mg tab(s) (ALDACTONE) 12.5 mg ORAL DAILY FURTHER RECOMMENDATIONS (IF ANY): MILLI Ribera [facility] PAGER: [phone] Normal [facility] PT ED HNO ID: [id number] Author: KAMLA DUENAS RD Service: Nutrition Therapy Author Type: Registered Dietitian Type: Patient Education Filed: 08/31/2023 12:07 Note Text: NUTRITION THERAPY PATIENT EDUCATION SERVICE DATE: 08/31/2023 SERVICE TIME: 10:52 am TOPIC: Heart Failure LEARNING RESPONSE Instruction Provided to: Patient Patient / Family Response: Video Viewed, No Response Method of Instruction: Video Material(s) Provided to Patient: None Follow-Up Plan: Complete - No need for follow-up Referral (Recommendation): Primary Care Provider MNT Billing: $ Reassessment: 1-15 minutes SIGNATURE: Kamla Duenas RD PATIENT NAME: Asya Asencio DATE: August 31, 2023 TIME: 12:07 PM PAGER: Normal [facility] FEMALE PELVIS TRANSABD LT Don 08-31-2023 FEMALE PELVIS TRANSABD LTD * * *Final Report* * * DATE OF EXAM: Aug 31 2023 8:57AM U 1059 - FEMALE PELVIS TRANSABD LTD / PROCEDURE REASON: Pelvic pain * * * * Physician Interpretation * * * * EXAMINATION: TRANSVAGINAL AND LIMITED TRANSABDOMINAL FEMALE PELVIC ULTRASOUND CLINICAL HISTORY: Pelvic cyst on CT TECHNIQUE: Sonography of the pelvis was performed by transvaginal and transabdominal (limited) techniques. Images were obtained and stored in a permanent archive. MQ: UFP_2021 COMPARISON: 08/29/2023 CT RESULT: Uterus: Absent Right Ovary: Only visualized on transabdominal scans 1.8 x 2 x 1.8 cm simple cyst in right adnexa with thin rim of surrounding tissue, likely within the ovary. No internal flow. - US O-RADS Descriptor: Unilocular Cyst without a Solid Component - Dimensions: 2 cm. - Solid Component: None - Inner wall contour: Smooth - Other: Not applicable - Ultrasound O-RADS Score: 2 (almost certainly benign) - Ultrasound O-RADS Management: See impression Left Ovary: Not visualized Free Fluid: No abnormal free fluid is present. IMPRESSION: 2 cm right adnexal simple cyst, likely ovarian. Ultrasound O-RADS Follow-Up Recommendations: - Imaging: No additional imaging is advised for this finding. Yard Stocker: LILIANA Transcribe Date/Time: Aug 31 2023 9:09A Dictated by : RADHA PEREYRA MD This examination was interpreted and the report reviewed and electronically signed by: RADHA PEREYRA MD on Aug 31 2023 9:13AM EST [id number] Normal [facility] US FEMALE PELVIS TRANSVAGon 08-31-2023 US FEMALE PELVIS TRANSVAG * * *Final Report* * * DATE OF EXAM: Aug 31 2023 8:45AM [facility] [facility]60 - US FEMALE PELVIS TRANSVAG / PROCEDURE REASON: Pelvic pain * * * * Physician Interpretation * * * * EXAMINATION: TRANSVAGINAL AND LIMITED TRANSABDOMINAL FEMALE PELVIC ULTRASOUND CLINICAL HISTORY: Pelvic cyst on CT TECHNIQUE: Sonography of the pelvis was performed by transvaginal and transabdominal (limited) techniques. Images were obtained and stored in a permanent archive. MQ: UFP_2021 COMPARISON: 08/29/2023 CT RESULT: Uterus: Absent Right Ovary: Only visualized on transabdominal scans 1.8 x 2 x 1.8 cm simple cyst in right adnexa with thin rim of surrounding tissue, likely within the ovary. No internal flow. - US O-RADS Descriptor: Unilocular Cyst without a Solid Component - Dimensions: 2 cm. - Solid Component: None - Inner wall contour: Smooth - Other: Not applicable - Ultrasound O-RADS Score: 2 (almost certainly benign) - Ultrasound O-RADS Management: See impression Left Ovary: Not visualized Free Fluid: No abnormal free fluid is present. IMPRESSION: 2 cm right adnexal simple cyst, likely ovarian. Ultrasound O-RADS Follow-Up Recommendations: - Imaging: No additional imaging is advised for this finding. Yard Stocker: [facility] Transcribe Date/Time: Aug 31 2023 9:09A Dictated by : RADHA PEREYRA MD This examination was interpreted and the report reviewed and electronically signed by: RADHA PEREYRA MD on Aug 31 2023 9:13AM EST [id number] N Normal [facility] CBC panel Auto (Bld)on 08-30 Erythrocyte distribution width (RBC) [Ratio] 13.1 % Normal 11.5-15.0 [facility] Comment on above: Order Comment: Speci men Type: BLOOD SPECIMEN [facility] Address: [address] [place] [address] Performed By: #### 2 4323-8, 76907-0 #### [facility] CLIA [id number] [address] [place] [address] [place] Hematocrit (Bld) [Volume fraction] 38.9 % Normal 36.0-46.0 [facility] Comment on above: Order Comment: Speci men Type: BLOOD SPECIMEN [facility] Address: [address] [place] [address] Performed By: #### 2 4323-8, 31354-6 #### [facility] CLIA [id number] [address] [place] [address] [place] Hemoglobin (Bld) [Mass/Vol] 12.6 g/dL Normal 11.5-15.5 [facility] Comment on above: Order Comment: Speci men Type: BLOOD SPECIMEN [facility] Address: [address] [place] [address] Performed By: #### 2 4323-8, 41221-1 #### [facility] CLIA [id number] [address] [place] [address] [place] MCH (RBC) [Entitic mass] 29.9 pg Normal 26.0-34.0 [facility] Comment on above: Order Comment: Speci men Type: BLOOD SPECIMEN [facility] Address: [address] [place] [address] Performed By: #### 2 4323-8, 84370-3 #### [facility] CLIA [id number] [address] [place] [address] [place] MCHC (RBC) [Mass/Vol] 32.4 g/dL Normal 30.5-36.0 [facility] Comment on above: Order Comment: Speci men Type: BLOOD SPECIMEN [facility] Address: [address] [place] [address] Performed By: #### 2 4323-8, 24404-1 #### [facility] CLIA [id number] [address] [place] [address] [place] MCV (RBC) [Entitic vol] 92.2 fL Normal 80.0-100.0 [facility] Comment on above: Order Comment: Speci men Type: BLOOD SPECIMEN [facility] Address: [address] [place] [address] Performed By: #### 2 4323-8, 54521-9 #### [facility] CLIA [id number] [address] [place] [address] [place] Nucleated RBC (Bld) [#/Vol] 10*3/uL Normal <0.01 [facility] Comment on above: Order Comment: Speci men Type: BLOOD SPECIMEN [facility] Address: [address] [place] [address] Performed By: #### 2 4323-8, 10624-9 #### [facility] CLIA [id number] [address] [place] [address] [place] Platelet mean volume (Bld) [Entitic vol] 10.4 fL Normal 9.0-12.7 [facility] Comment on above: Order Comment: Speci men Type: BLOOD SPECIMEN [facility] Address: [address] [place] [address] Performed By: #### 2 4323-8, 70255-4 #### [facility] CLIA [id number] [address] [place] [address] [place] Platelets (Bld) [#/Vol] 185 10*3/uL Normal 150-400 [facility] Comment on above: Order Comment: Speci men Type: BLOOD SPECIMEN [facility] Address: [address] [place] [address] Performed By: #### 2 4323-8, 89753-1 #### [facility] CLIA [id number] [address] [place] [address] [place] RBC (Bld) [#/Vol] 4.22 10*6/uL Normal 3.90-5.20 [facility] Comment on above: Order Comment: Speci men Type: BLOOD SPECIMEN [facility] Address: [address] [place] [address] Performed By: #### 2 4323-8, 86766-5 #### [facility] CLIA [id number] [address] [place] [address] [place] WBC (Bld) [#/Vol] 6.51 10*3/uL Normal 3.70-11.00 [facility] Comment on above: Order Comment: Speci men Type: BLOOD SPECIMEN [facility] Address: [address] [place] [address] Performed By: #### 2 4323-8, 24479-1 #### [facility] CLIA [id number] [address] [place] [address] [place] CNCOon 08-30-2023 CNCO Letter Text Normal [facility] CONSULT PROGon 08-30-2023 CONSULT PROG HNO ID: [id number] Author: CHAUNCEY LEYVA, PhD Service: Psychology Author Type: Resident Type: Consult Progress Note Filed: 09/05/2023 18:39 Note Text: Attestation signed by Chauncey Leyva, PhD at 09/05/2023 6:39 PM I have reviewed and agree with Dr. Pinzon's assessment and treatment plan. PSYCHOLOGY PROGRESS NOTE ADMISSION DATE: 08/24/2023 ATTENDING PROVIDER: Viry Middleton MD PRIMARY CARE PROVIDER: Peggy Nazario MD DATE: 08/30/2023 TIME: 1:00pm - 1:30pm Patient was seen for initial evaluation by psychiatry on 08/28. Referred to Psychology for Anxiety. Asya Asencio was seen bedside for 30 minutes by Jeanna Pinzon, PhD. TREATMENT SUMMARY: Pt reported anxious distress related to inability to control urination. She largely denied additional sources of distress at this time, despite repeatedly acknowledging transient stress related to grief and strained relationship with adult son. I have a counselor that I will talk to. I'm not sad about my , I don't think about him, only during the night time. None of this is because of stress. She perseverated on discomfort in right here, not my stomach, but the area below it, right here, and anticipated difficulty with releasing urine. Provider attempted to guide pt through adaptive coping interventions, however she became notably frustrated/defensive and stated, you are not listening to me, I am not stressed right now, I will become stressed and maybe have a panic attack if I can't urinate when I need to. Right now I am fine. I'm hopeful, nothing wrong that. Attempted to explain the importance of relaxation, redirecting attentionand developing a COPE AHEAD plan , but pt was not receptive and stated talking about this is only making me focus on it and it is not helpful. I don't need you to make me focus on it. I know when I'm anxious and I'm not. This is not because I am stressed. Provider engaged in reflective listening and validated emotions/concerns. Validated that distraction is great at this time/provided ways pt could distract self. INTERVENTIONS: Rapport building Support and reassurance MENTAL STATUS EXAM: - Speech was within normal limits with regard to rate, tone and volume. - Mood was reported as I'm Fine. - Affect was full range. - Impulse control was fair. - Attention was fair. - Thought-cognitive: There is no evidence of a formal thought disorder. Preservative thinking. - Thought processing: ruminative - Suicidal or homicidal ideation: None expressed or evidenced - Intelligence impression: Average - Judgment: Limited - Insight: Limited DIAGNOSES: By Psychiatry 1. Anxiety exacerbation with hx of KYLIE 2. Adjustment Disorder with anxious mood 3. History of significant childhood trauma 4. Cluster C personality traits ASSESSMENT/PLAN: Ms. 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 She presents to the hospital for optimization and workup for mitral and tricuspid valve replacement. Psychology was consulted for Anxiety. Upon assessment pt presented with anxious distress related to inability to control urination. She denied additional sources of stress at this time, despite acknowledging transient sadness related to grief and stained relationship with adult son. Psychiatric history is positive for longstanding developmental trauma, and anxiety, likely contributing to/exacerbating current presentations and difficulty with adjustment. Pt appears to have limited insight into emotional functioning, and her notable Cluster B and C personality traits my impede ability to effectively communicate/engage in collaborative treatment efforts. Suspect pt will receive the most benefit from [facility] outpatient psychotherapy. However, [facility] Psychology will be beneficial for supportive therapy, and development of adaptive coping skills during hospitalization. Pt is amenable to [facility] Psychology services. [facility] Psychology will continue to follow. RECOMMENDATIONS: -The patient may benefit from brief psychotherapy while hospitalized to promote use of adaptive strategies to manage current stressors and to assist with mood symptoms as they present within the context of medical illness and current hospitalization. psychology will continue to follow while hospitalized. - The patient was encouraged to practice strategies to help regulate her nervous system when she becomes emotionally distressed.These strategies include: Diaphragmatic deep breathing Grounding using the 5 senses and cognitive grounding techniques Use of adaptive coping (more content not included)... Normal [facility] Comprehensive metabolic 2000 panelon 08-30-2023 Albumin [Mass/Vol] 3.9 g/dL Normal 3.9-4.9 [facility] Comment on above: Order Comment: Speci men Type: BLOOD SPECIMEN [facility] Address: [address] [place] [id number] Performed By: #### 2 4323-8, 48392-1 #### [facility] CLIA [id number] [address] [place] [address] [place] ALP [Catalytic activity/Vol] 65 U/L Normal 34-123 [facility] Comment on above: Order Comment: Speci men Type: BLOOD SPECIMEN [facility] Address: [address] [place], [place] [address] Performed By: #### 2 4323-8, 63059-6 #### [facility] CLIA [id number] [address] [place] [address] [place] ALT [Catalytic activity/Vol] 28 U/L Normal 7-38 [facility] Comment on above: Order Comment: Speci men Type: BLOOD SPECIMEN [facility] Address: [address] [place] [address] Performed By: #### 2 4323-8, 21009-0 #### [facility] CLIA [id number] [address] [place] [address] [place] Anion gap [Moles/Vol] 9 mmol/L Normal 9-18 [facility] Comment on above: Order Comment: Speci men Type: BLOOD SPECIMEN [facility] Address: [address] [place], [place] [address] Performed By: #### 2 4323-8, 23112-6 #### [facility] CLIA [id number] [address] [place] [address] [place] AST [Catalytic activity/Vol] 24 U/L Normal 13-35 [facility] Comment on above: Order Comment: Speci men Type: BLOOD SPECIMEN [facility] Address: [address] [place], [place] [address] Performed By: #### 2 4323-8, 37152-6 #### [facility] CLIA [id number] [address] [place] [address] [place] Bilirubin [Mass/Vol] 0.5 mg/dL Normal 0.2-1.3 [facility] Comment on above: Order Comment: Speci men Type: BLOOD SPECIMEN [facility] Address: [address] [place] [address] Performed By: #### 2 4323-8, 84324-9 #### [facility] CLIA [id number] [address] [place] [address] [place] Calcium [Mass/Vol] 9.3 mg/dL Normal 8.5-10.2 [facility] Comment on above: Order Comment: Speci men Type: BLOOD SPECIMEN [facility] Address: [address] [place] [address] Performed By: #### 2 4323-8, 14967-5 #### [facility] CLIA [id number] [address] [place] [address] [place] Chloride [Moles/Vol] 103 mmol/L Normal 97-105 [facility] Comment on above: Order Comment: Speci men Type: BLOOD SPECIMEN [facility] Address: [address] [place] [address] Performed By: #### 2 4323-8, 05002-3 #### [facility] CLIA [id number] [address] [place] [address] [place] CO2 [Moles/Vol] 25 mmol/L Normal 22-30 [facility] Comment on above: Order Comment: Speci men Type: BLOOD SPECIMEN [facility] Address: [address] [place] [address] Performed By: #### 2 4323-8, 24221-6 #### [facility] CLIA [id number] [address] [place] [address] [place] Creatinine [Mass/Vol] 1.11 mg/dL High 0.58-0.96 [facility] Comment on above: Order Comment: Nichole becerra Type: BLOOD SPECIMEN [facility] Address: [address] [place] [address] Performed By: #### 2 4323-8, 45343-8 #### [facility] CLIA [id number] [address] [place] [address] [place] Creatinine and Glomerular filtration rate.predicted panel (S/P/Bld) 52 mL/min/1.73m??? Low >=60 [facility] Comment on above: Order Comment: Nichole becerra Type: BLOOD SPECIMEN [facility] Address: [address] [place] [address] Result Comment: Shelley mated Glomerular Filtration Rate (eGFR) is calculated using the 2020 CKD-EPI creatinine equation. This equation utilizes serum creatinine, sex, and age as parameters. The creatinine assay has traceable calibration to isotope dilution-mass spectrometry. Refer to KDIGO guidelines for clinical interpretation. In patients with unstable renal function, e.g. those with acute kidney injury, the eGFR may not accurately reflect actual GFR. Performed By: #### 2 4323-8, 81540-1 #### [facility] CLIA [id number] [address] [place] [address] [place] Glucose [Mass/Vol] 149 mg/dL High 74-99 [facility] Comment on above: Order Comment: Nichole becerra Type: BLOOD SPECIMEN [facility] Address: [address] [place] [address] Result Comment: The [place] [employer] (ADA) provides guidance for cutoff values for fasting glucose and random glucose. The ADA defines fasting as no caloric intake for at least 8 hours. Fasting plasma glucose results between 100 to 125 mg/dL indicate increased risk for diabetes (prediabetes). Fasting plasma glucose results greater than or equal to 126 mg/dL meet the criteria for diagnosis of diabetes. In the absence of unequivocal hyperglycemia, results should be confirmed by repeat testing. In a patient with classic symptoms of hyperglycemia or hyperglycemic crisis, random plasma glucose results greater than or equal to 200 mg/dL meet the criteria for diagnosis of diabetes. Reference: Standards of Medical Care in Diabetes 2016, [place] [employer]. Diabetes Care. 2016.39(Suppl 1). Performed By: #### 2 4323-8, 91201-7 #### [facility] CLIA [id number] [address] [place] [address] [place] Potassium [Moles/Vol] 5.0 mmol/L Normal 3.7-5.1 [facility] Comment on above: Order Comment: Speci men Type: BLOOD SPECIMEN [facility] Address: [address] [place] [address] Performed By: #### 2 4323-8, 03658-7 #### [facility] CLIA [id number] [address] [place] [address] [place] Protein [Mass/Vol] 6.3 g/dL Normal 6.3-8.0 [facility] Comment on above: Order Comment: Speci men Type: BLOOD SPECIMEN [facility] Address: [address] [place] [address] Performed By: #### 2 4323-8, 71202-7 #### [facility] CLIA [id number] [address] [place] [address] [place] Sodium [Moles/Vol] 137 mmol/L Normal 136-144 [facility] Comment on above: Order Comment: Speci men Type: BLOOD SPECIMEN Ordering Facility: [facility] Address: [address] [id number] Performed By: #### 2 4323-8, 92119-2 #### [facility] CLIA [id number] [address] [place] [address] [place] Urea nitrogen [Mass/Vol] 19 mg/dL Normal 7-21 [facility] Comment on above: Order Comment: Speci men Type: BLOOD SPECIMEN Ordering Facility: [facility] Address: [address] [place] [address] Performed By: #### 2 4323-8, 27382-3 #### [facility] CLIA [id number] [address] [place] [address] [place] Magnesium SerPl-mCncon 08-30 Magnesium [Mass/Vol] 2.2 mg/dL Normal 1.7-2.3 [facility] Comment on above: Order Comment: Speci men Type: BLOOD SPECIMEN Ordering Facility: [facility] Address: [address] [place] [address] Performed By: #### 2 4323-8, 75085-8 #### [facility] CLIA [id number] [address] [place] [address] [place] NURSING PROGon 08-30-2023 NURSING PROG HNO ID: [id number] Author: CHAVA CAMPUZANO RN Service: Nursing Author Type: Registered Nurse Type: Nursing Progress Note Filed: 08/30/2023 16:30 Note Text: Event(s) / Intervention Note: PATIENT NAME: Asya Asencio Patient Location: [address]02-11-13 Room: +voiding post robles removal, refer to [facility] [employer] [facility] for output. Normal [facility] NUTRITIONon 08-30-2023 NUTRITION HNO ID: [id number] Author: KAMLA DUENAS RD Service: Nutrition Therapy Author Type: Registered Dietitian Type: Nutrition Filed: 08/30/2023 12:41 Note Text: NUTRITION THERAPY INITIAL ASSESSMENT SERVICE DATE: 08/30/2023 SERVICE TIME: 8:20 am Nutrition Assessment: Recommended Malnutrition Diagnosis: Severe Protein-Calorie Malnutrition In the context of: Chronic Illness or Injury Based on: Unintentional Weight Loss, Insufficient Energy Intake, Muscle Loss Nutrition Diagnosis: Problem: Unintended weight loss Related to: Inability to consume sufficient nutrients As evidenced by: Patient/family self-report, Anorexia Estimated kilocalorie needs: 0026-9828 Calorie Calculation Method: 30-35 kcals/kg Estimated protein needs (grams): 68-89 Grams protein determined by: 1.3 - 1.7 g/kg Care Plan: Change diet to: electrolyte controlled 4 gm Na+ Supplements: (patient declined r/t reported stomach upset) Vitamins and Minerals: Multivitamin with minerals Medications: Anti-emetics, Stool softener, Laxative (PRN) Monitor intakes, recommend consistent intake documentation of meals, snacks, and supplements in order for RD to accurately assess nutritional adequacy Monitor and Evaluation: Meet greater than 75% of estimated needs, Monitor bowel function, Monitor fluid/electrolyte balance, Monitor labs, I/Os, vital signs, weight Discharge Recommendations: Diet;Oral Supplements Diet: low sodium Oral Supplements: of choice as needed to help meet calorie and protein needs HPI: Consulted for nutrition assessment. Patient is a 73 year old female with a past medical history per chart review of KYLIE, HTN, HLD, NICM, HF, moderate to severe MR and TR, A-fib, urethral stricture s/p dilation 04/2023, s/p sigmoid colectomy in 1996. Presents with mild dyspnea on exertion. Intake History: Nutrition Intake Prior to Admission: Less than 75% estimated energy needs greater than or equal to 1 month Current Nutrition Intake: Greater than 75% estimated energy needs Current Intake Over time: (x 3 days) Per discussion with patient: -reported that she had blood work that confirmed egg and wheat allergy -patient reported that she experiences GI upset (nausea, vomiting) when consumed -patient requesting that both allergies be active in her record -patient reported weight loss r/t decreased oral intake prior to admission -currently eating well in hospital -eating 100% of meals on average per chart review -reports she is very active at baseline which helps with her anxiety -declined oral nutrition supplements, reported she is lactose intolerant -RD informed patient that supplements are suitable for lactose intolerance, patient declined Diet Orders (From admission, onward) Start Ordered 08/29/23 0730 DIET HEART HEALTHY START NOW Question: Heart Healthy Answer: 2 GM SODIUM (LOW SAT FAT) 08/29/23 0716 Anthropometrics: Height: 165.1 cm (5' 5 ) Weight: 52.1 kg (114 lb 13.8 oz) Dosing Weight: 52.1 kg (114 lb 13.8 oz) (standing) Usual Weight: 55.8 kg (123 lb) x 7 months Usual Weight Obtained From: Chart Review Body mass index is 19.11 kg/m?. Weight change percentage over time: 8.1% x 3 months Weight Change: Clinically signficant weight loss Physical Exam: Subcutaneous fat loss: Moderate Muscle loss: Severe Potential micronutrient deficiency: No deficiency identified Edema/Ascites: No edema GI Symptoms: Nausea Functional Status: Not related to malnutrition status Potential Signs of Inflammation: Chronic condition, Microbiologic cultures HF MNT Billing: $ Initial Assessment: 16-30 minutes SIGNATURE: Kamla Duenas RD PATIENT NAME: Asya Asencio DATE: August 30, 2023 TIME: 12:32 PM Normal [facility] CBC panel Auto (Bld)on 08-29 Erythrocyte distribution width (RBC) [Ratio] 13.1 % Normal 11.5-15.0 [facility] Comment on above: Order Comment: Speci men Type: BLOOD SPECIMENOrdering Facility: [facility] Address: [address] [place] [address] Performed By: #### 5 8410-2 ####[facility] [id number] [place] [address] [place] Hematocrit (Bld) [Volume fraction] 39.4 % Normal 36.0-46.0 [facility] Comment on above: Order Comment: Speci men Type: BLOOD SPECIMENOrdering Facility: [facility] Address: [address] [place] [address] Performed By: #### 5 8410-2 ####[facility] [id number] [place] [address] [place] Hemoglobin (Bld) [Mass/Vol] 13.1 g/dL Normal 11.5-15.5 [facility] Comment on above: Order Comment: Speci men Type: BLOOD SPECIMENOrdering Facility: [facility] Address: [address] [place] [address] Performed By: #### 5 8410-2 ####[facility] [id number] [place] [address] [place] MCH (RBC) [Entitic mass] 30.0 pg Normal 26.0-34.0 [facility] Comment on above: Order Comment: Speci men Type: BLOOD SPECIMENOrdering Facility: [facility] Address: [address] [place] [address] Performed By: #### 5 8410-2 ####[facility] [id number] [place] [address] [place] MCHC (RBC) [Mass/Vol] 33.2 g/dL Normal 30.5-36.0 [facility] Comment on above: Order Comment: Speci men Type: BLOOD SPECIMENOrdering Facility: [facility] Address: [address] [place] [address] Performed By: #### 5 8410-2 ####[facility] [id number] [place] [address] [place] MCV (RBC) [Entitic vol] 90.4 fL Normal 80.0-100.0 [facility] Comment on above: Order Comment: Speci men Type: BLOOD SPECIMENOrdering Facility: [facility] Address: [address] [place] [address] Performed By: #### 5 8410-2 ####[facility] [id number] [place] [address] [place] Nucleated RBC (Bld) [#/Vol] 10*3/uL Normal <0.01 [facility] Comment on above: Order Comment: Speci men Type: BLOOD SPECIMENOrdering Facility: [facility] Address: [address] [place] [address] Performed By: #### 5 8410-2 ####[facility] [id number] [place] [address] [place] Platelet mean volume (Bld) [Entitic vol] 10.5 fL Normal 9.0-12.7 [facility] Comment on above: Order Comment: Speci men Type: BLOOD SPECIMENOrdering Facility: [facility] Address: [address] [place] [address] Performed By: #### 5 8410-2 ####[facility] [id number] [place] [address] [place] Platelets (Bld) [#/Vol] 192 10*3/uL Normal 150-400 [facility] Comment on above: Order Comment: Speci men Type: BLOOD SPECIMENOrdering Facility: [facility] Address: [address] [place] [address] Performed By: #### 5 8410-2 ####[facility] [id number] [place] [address] [place] RBC (Bld) [#/Vol] 4.36 10*6/uL Normal 3.90-5.20 [facility] Comment on above: Order Comment: Speci men Type: BLOOD SPECIMENOrdering Facility: [facility] Address: [address] [place] [address] Performed By: #### 5 8410-2 ####[facility] [id number] [place] [address] [place] WBC (Bld) [#/Vol] 8.00 10*3/uL Normal 3.70-11.00 [facility] Comment on above: Order Comment: Speci men Type: BLOOD SPECIMENOrdering Facility: [facility] Address: [address] [place] [address] Performed By: #### 5 8410-2 ####[facility] [id number] [place] [address] [place] CT FLANK WO IVCONon 08-29-[address] FLANK WO IVCON * * *Final Report* * * DATE OF EXAM: Aug 29 2023 2:54PM [facility] 0529 - CT FLANK WO IVCON / PROCEDURE REASON: Flank pain, kidney stone suspected * * * * Physician Interpretation * * * * EXAMINATION: CT ABDOMEN AND PELVIS WITHOUT IV CONTRAST (Renal stone protocol) CLINICAL HISTORY: Unspecified flank pain. Hematuria. History of urethral stricture. TECHNIQUE: Non-contrast imaging of the abdomen and pelvis was performed through the urinary tract. Study performed without intravenous or oral contrast to evaluate for urinary tract calculus. MQ: [id number] Contrast: IV contrast: None Oral contrast: None CT Radiation dose: Integrated dose-length product (DLP) for this visit = 160 mGy*cm. CT Dose Reduction Employed: Automated exposure control (AEC) COMPARISON: CT abdomen pelvis 06/30/2023 RESULT: Limitations: Unenhanced imaging is limited for the evaluation of some renal and other intra-abdominal and pelvic pathology. Urinary Tract: Right kidney and ureter: No calculus. No hydronephrosis. No finding to suggest cyst or mass in the unenhanced kidney. Left kidney and ureter: No calculus. No hydronephrosis. Parapelvic cysts. No finding to suggest cyst or mass in the unenhanced kidney. Bladder: No calculus. Abdomen and Pelvis: Liver: Unremarkable. Biliary: The gallbladder is collapsed. Spleen: No splenomegaly. Pancreas: Unremarkable. Adrenals: Normal. GI Tract: No bowel dilation. Large colonic stool burden. Colorectal anastomosis. Lymph Nodes: No lymphadenopathy. Mesentery/peritoneum: No ascites. Vasculature: Arterial atherosclerotic disease without aneurysm. Pelvis: Robles catheter in the bladder is decompressed incompletely evaluated. Gas bladder likely. Hysterectomy. No pelvic ascites or mass. Increased size of 2.8 cm RIGHT adnexal/recurrent cystic lesion, previously up to 1.6 cm. Bones and Soft Tissues: Bony demineralization. Lumbar spondylosis. No suspicious osseous lesions. Lower thorax: Cardiomegaly. Minimal left basilar subsegmental atelectasis Manufacturing Cost Estimator (topogram) images: Unremarkable. IMPRESSION: No urinary tract calculi. No acute findings in the abdomen or pelvis. Increased size of RIGHT adnexal/ovarian cystic lesion, which at discretion this could be further characterized with ultrasound. ACTIONABLE RESULT: FOLLOW-UP Acuity: Actionable Findings: Female reproductive tract (pelvis, adnexa) Routing code: WH_1 Recommendation: US FEMALE PELVIS NON-OB NON TORSION ([id number]) Time Frame: At the discretion of the clinical team. COMMUNICATION: Results will be communicated with the ordering provider via [employer] staff message or phone message by [employer] within 2 business days of report finalization. --END OF FINDING-- Yard Stocker: LILIANA Transcribe Date/Time: Rodrigue 16 2024 2:57P Dictated by : NITZA CARUSO MD This examination was interpreted and the report reviewed and electronically signed by: MIGEL CARRION MD on Aug 29 2023 4:39PM EST [id number] ACTIONABLE Invalid Interpretation Code [facility] metabolic 2000 panelon 08-29-2023 Albumin [Mass/Vol] 3.9 g/dL Normal 3.9-4.9 [facility] Comment on above: Order Comment: Speci men Type: BLOOD SPECIMENOrdering Facility: [facility] Address: [address] [place] [address] Performed By: #### 1 9123-9, 94160-5 ####[facility] [id number] [place] [address] [place] ALP [Catalytic activity/Vol] 58 U/L Normal 34-123 [facility] Comment on above: Order Comment: Speci men Type: BLOOD SPECIMENOrdering Facility: [facility] Address: [address] [place] [address] Performed By: #### 1 9123-9, 87885-8 ####[facility] [id number] [place] [address] [place] ALT [Catalytic activity/Vol] 33 U/L Normal 7-38 [facility] Comment on above: Order Comment: Speci men Type: BLOOD SPECIMENOrdering Facility: [facility] Address: [address] [place] [address] Performed By: #### 1 9123-9, 88026-3 ####[facility] [id number] [address] [id number] [place] Anion gap [Moles/Vol] 10 mmol/L Normal 9-18 [facility] Comment on above: Order Comment: Speci men Type: BLOOD SPECIMENOrdering Facility: [facility] Address: [address] [place] [address] Performed By: #### 1 9123-9, 68961-0 ####[facility] [id number] [place] [address] [place] AST [Catalytic activity/Vol] 25 U/L Normal 13-35 [facility] Comment on above: Order Comment: Speci men Type: BLOOD SPECIMENOrdering Facility: [facility] Address: [address] [place] [address] Performed By: #### 1 9123-9, 29117-1 ####[facility] [id number] [place] [address] [place] Bilirubin [Mass/Vol] 0.7 mg/dL Normal 0.2-1.3 [facility] Comment on above: Order Comment: Speci men Type: BLOOD SPECIMENOrdering Facility: [facility] Address: [address] [place] [address] Performed By: #### 1 9123-9, 65217-5 ####[facility] [id number] [place] [address] [place] Calcium [Mass/Vol] 9.0 mg/dL Normal 8.5-10.2 [facility] Comment on above: Order Comment: Speci men Type: BLOOD SPECIMENOrdering Facility: [facility] Address: [address] [place] [address] Performed By: #### 1 9123-9, ####[facility] [id number] [place] [address] [place] Chloride [Moles/Vol] 101 mmol/L Normal 97-105 [facility] Comment on above: Order Comment: Speci men Type: BLOOD SPECIMENOrdering Facility: [facility] Address: [address] [place] [address] Performed By: #### 1 9123-9, 92142-6 ####[facility] [id number] [place] [address] [place] CO2 [Moles/Vol] 25 mmol/L Normal 22-30 [facility] Comment on above: Order Comment: Speci men Type: BLOOD SPECIMENOrdering Facility: [facility] Address: [address] [place] [address] Performed By: #### 1 9123-9, ####[facility] [id number] [place] [address] [place] Creatinine [Mass/Vol] 0.87 mg/dL Normal 0.58-0.96 [facility] Comment on above: Order Comment: Speci men Type: BLOOD SPECIMENOrdering Facility: [facility] Address: [address] [place] [address] Performed By: #### 1 9123-9, ####[facility] [id number] [place] [address] [place] Creatinine and Glomerular filtration rate.predicted panel (S/P/Bld) 70 mL/min/1.73m??? Normal >=60 [facility] Comment on above: Order Comment: Speci men Type: BLOOD SPECIMENOrdering Facility: [facility] Address: [address] [place] [address] Result Comment: Shelley mated Glomerular Filtration Rate (eGFR) is calculated using the 2020 CKD-EPI creatinine equation. This equation utilizes serum creatinine, sex, and age as parameters. The creatinine assay has traceable calibration to isotope dilution-mass spectrometry. Refer to KDIGO guidelines for clinical interpretation. In patients with unstable renal function, e.g. those with acute kidney injury, the eGFR may not accurately reflect actual GFR. Performed By: #### 1 9123-9, ####[facility] [id number] [place] [address] [place] Glucose [Mass/Vol] 85 mg/dL Normal 74-99 [facility] Comment on above: Order Comment: Speci men Type: BLOOD SPECIMENOrdering Facility: [facility] Address: [address] [place] [address] Result Comment: The [place] Diabetes Association (ADA) provides guidance for cutoff values for fasting glucose and random glucose. The ADA defines fasting as no caloric intake for at least 8 hours. Fasting plasma glucose results between 100 to 125 mg/dL indicate increased risk for diabetes (prediabetes). Fasting plasma glucose results greater than or equal to 126 mg/dL meet the criteria for diagnosis of diabetes. In the absence of unequivocal hyperglycemia, results should be confirmed by repeat testing. In a patient with classic symptoms of hyperglycemia or hyperglycemic crisis, random plasma glucose results greater than or equal to 200 mg/dL meet the criteria for diagnosis of diabetes. Reference: Standards of Medical Care in Diabetes 2016, [place] Diabetes Association. Diabetes Care. 2016.39(Suppl 1). Performed By: #### 1 9123-9, ####[facility] [id number] [place] [address] [place] Potassium [Moles/Vol] 4.7 mmol/L Normal 3.7-5.1 [facility] Comment on above: Order Comment: Speci men Type: BLOOD SPECIMENOrdering Facility: [facility] Address: [address] [place] [address] Performed By: #### 1 9123-9, ####[facility] [id number] [place] [address] [place] Protein [Mass/Vol] 6.3 g/dL Normal 6.3-8.0 [facility] Comment on above: Order Comment: Speci men Type: BLOOD SPECIMENOrdering Facility: [facility] Address: [address] [place] [address] Performed By: #### 1 23-9, ####[facility] [id number] [place] [address] [place] Sodium [Moles/Vol] 136 mmol/L Normal 136-144 [facility] Comment on above: Order Comment: Speci men Type: BLOOD SPECIMENOrdering Facility: [facility] Address: [address] [place] [address] Performed By: #### 1 239, ####[facility] [id number] [place] [address] [place] Urea nitrogen [Mass/Vol] 15 mg/dL Normal 7-21 [facility] Comment on above: Order Comment: Speci men Type: BLOOD SPECIMENOrdering Facility: [facility] Address: [address] [place] [address] Performed By: #### 1 9123-9, 58511-5 ####[facility] [id number] [place] [id number] [place] DIGOXIN/LANOXINon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 Performed By: #### 2 4323-8, 3024-02 ####[facility] [id number] [place] [address] [place] CO2 [Moles/Vol] 24 mmol/L Normal 22-30 [facility] Comment on above: Order Comment: Speci men Type: BLOOD SPECIMENOrdering Facility: [facility] Address: [address] [place] [address] Performed By: #### 2 4323-8, 7 ####[facility] [id number] [place] [id number] [place] Creatinine [Mass/Vol] 0.75 mg/dL Normal 0.58-0.96 [facility] Comment on above: Order Comment: Speci men Type: BLOOD SPECIMENOrdering Facility: [facility] Address: [address] [place] [id number] Performed By: #### 2 4323-8, 7 ####[facility] [id number] [place] [address] [place] Creatinine and Glomerular filtration rate.predicted panel (S/P/Bld) 83 mL/min/1.73m??? Normal >=60 [facility] Comment on above: Order Comment: Nichole becerra Type: BLOOD SPECIMENOrdering Facility: [facility] Address: [address] [place] [address] Result Comment: Shelley mated Glomerular Filtration Rate (eGFR) is calculated using the 2020 CKD-EPI creatinine equation. This equation utilizes serum creatinine, sex, and age as parameters. The creatinine assay has traceable calibration to isotope dilution-mass spectrometry. Refer to KDIGO guidelines for clinical interpretation. In patients with unstable renal function, e.g. those with acute kidney injury, the eGFR may not accurately reflect actual GFR. Performed By: #### 2 4323-8, 302-7 ####[facility] [id number] [place] [address] [place] Glucose [Mass/Vol] 88 mg/dL Normal 74-99 [facility] Comment on above: Order Comment: Nichole becerra Type: BLOOD SPECIMENOrdering Facility: [facility] Address: [address] [place] [address] Result Comment: The [place] Diabetes [employer] (ADA) provides guidance for cutoff values for fasting glucose and random glucose. The ADA defines fasting as no caloric intake for at least 8 hours. Fasting plasma glucose results between 100 to 125 mg/dL indicate increased risk for diabetes (prediabetes). Fasting plasma glucose results greater than or equal to 126 mg/dL meet the criteria for diagnosis of diabetes. In the absence of unequivocal hyperglycemia, results should be confirmed by repeat testing. In a patient with classic symptoms of hyperglycemia or hyperglycemic crisis, random plasma glucose results greater than or equal to 200 mg/dL meet the criteria for diagnosis of diabetes. Reference: Standards of Medical Care in Diabetes 2016, [place] [employer]. Diabetes Care. 2016.39(Suppl 1). Performed By: #### 2 4323-8, 3024-7 ####[facility] [id number] [place] [address] [place] Potassium [Moles/Vol] 4.6 mmol/L Normal 3.7-5.1 [facility] Comment on above: Order Comment: Speci men Type: BLOOD SPECIMENOrdering Facility: [facility] Address: [address] [place] [address] Performed By: #### 2 4323-8, 7 ####[facility] [id number] [place] [address] [place] Protein [Mass/Vol] 5.9 g/dL Low 6.3-8.0 [facility] Comment on above: Order Comment: Speci men Type: BLOOD SPECIMENOrdering Facility: [facility] Address: [address] [place] [address] Performed By: #### 2 4323-8, 7 ####[facility] [id number] [place] [address] [place] Sodium [Moles/Vol] 140 mmol/L Normal 136-144 [facility] Comment on above: Order Comment: Speci men Type: BLOOD SPECIMENOrdering Facility: [facility] Address: [address] [place] [address] Performed By: #### 2 4323-8, 7 ####[facility] [id number] [place] [address] [place] Urea nitrogen [Mass/Vol] 13 mg/dL Normal 7-21 [facility] Comment on above: Order Comment: Speci men Type: BLOOD SPECIMENOrdering Facility: [facility] Address: [address] [place] [address] Performed By: #### 2 4323-8, 3023-7 ####[facility] [id number] [place] [id number] [place] [id number] 08-28-2023 ECG01 Ventricular Rate : 6 1 BPM Atrial Rate : 416 BPM QRS Duration : 86 ms Q-T Interval : 324 ms QTC Calculation(Bazett) : 326 ms Calculated R [place] : 82 degrees Calculated T [place] : 20 degrees ATRIAL FLUTTER WITH VARIABLE A-V CONDUCTION ABNORMAL ECG Confirmed by fellow ZIGGY CRUZ MD ([id number]) on 09/04/2023 1:50:09 PM Confirmed by MD DEJUAN, PhD, KHUSHI ([id number]) on 09/11/2023 1:23:32 PM NAME : ASYA ASENCIO PID : [id number] : 1950 Gender : Female Race : ORD : Procedure Date : Aug 28 2023 18:02:48 Edit Date : Sep 11 2023 13:23:36 Diagnosis: ATRIAL FLUTTER WITH VARIABLE A-V CONDUCTION ABNORMAL ECG Confirmed by fellow ZIGGY CRUZ MD ([id number]) on 09/04/2023 1:50:09 PM Confirmed by MD DEJUAN, PhD, KHUSHI ([id number]) on 09/11/2023 1:23:32 PM Test Reason : Location : [address] Overread By : MD DEJUAN, PhD,KHUSHI Edited By : MD DEJUAN, PhD,KHUSHI Referred By : , Acquired by : [id number], Normal [facility] ECHO TRANSESOPHAGEALon 08-28 ECHO TRANSESOPHAGEAL Echocardiography Report: Transesophageal Echo [facility] J1-5 Date of service: 08/28/2023 3:59:19 PM [employer] Ordering physician: VIRY ROLLINS Indication: Pre Cardioversion, Pre AF Ablation Technologist: fellow Fellow: Yadiel Motley MD and Yasir Coronado MD Interpreting physician: Marilee Coffman MD PATIENT: Name: MRS. ASYA ASENCIO : 1950 Age: 73 years Gender: F History of valvular heart disease, cardiomyopathy and arrhythmia. Height: 165.10 cm BSA: 1.55 m Weight: 52.16 kg BMI: 19.1 kg/m Pre Post Heart rate 87 bpm 68 bpm Blood pressure 152/67 mmHg 94/44 mmHg O2 saturation 99 % 100 % Color Doppler was utilized to interrogate the cardiac valves assessed and spectral Doppler was utilized to determine the flow velocities and pressure gradients reported in this exam. Medications Total Dose Versed 6.00 mg Fentanyl 150.00 mcg Agitated Saline 10.00 ml Exam performed under moderate sedation with continuous ECG, pulse oximetry and cardiopulmonary monitoring by nursing, overseen by the performing physician(s), for an intraservice time of 23 min. (Stop Time: 1503) No specimens collected. No blood loss. The interpreting physician was present for and actively participated in the KRYSTINA procedure. MEASUREMENTS: Value Normal Max aortic dimension 3.2 cm Ao < 3.8 Ejection Fraction 40 % (visual est.) EF > 54 FINDINGS: LEFT VENTRICLE The left ventricle is dilated. Left ventricular systolic function is moderately decreased. RIGHT VENTRICLE The right ventricle is normal in size. Right ventricular systolic function is mildly decreased. LEFT ATRIUM The left atrial cavity is dilated. The left atrial appendage is multilobed. The peak emptying velocity from the left atrial appendage is 31.0 cm/s. There is no left atrial appendage thrombus. Pulmonary Veins: The pulmonary venous pattern showed blunted systolic flow. RIGHT ATRIUM The right atrial cavity is dilated. MITRAL VALVE There is moderately severe (3+) holosystolic mitral valve regurgitation. There is a regurgitant jet originating along the central aspect of the coaptation line and a regurgitant jet originating along the medial aspect of the coaptation line. Regurgitant orifice area (PISA) is 0.32 cm . The peak mitral valve gradient is 4 mmHg. The mean mitral valve gradient is 1 mmHg. 3D echocardiographic multi-planar reconstruction of the mitral valve was performed to assess anatomy and function. TRICUSPID VALVE There is moderately severe (3+) tricuspid valve regurgitation. AORTIC VALVE There is trace (trace - 1+) aortic valve regurgitation. There is a regurgitant jet originating centrally. Tricuspid aortic valve. There is mild thickening. 3D echocardiographic multi-planar reconstruction of the aortic valve was performed to assess anatomy and function. PULMONIC VALVE There is mild (1+) pulmonic valve regurgitation. AORTA The visualized aorta is normal in size. Measurements - Sinus: 3.2 cm. Mid ascending aorta 3.0 cm. INTERATRIAL SEPTUM There is no evidence of intracardiac shunting as detected by Doppler and agitated saline contrast. CONCLUSIONS: - Exam indication: Pre Cardioversion, Pre AF Ablation - The left ventricle is dilated. Left ventricular systolic function is moderately decreased. EF = 40 5% (visual est.) No transgastric views to minimize patient discomfort. - The right ventricle is normal in size. Right ventricular systolic function is mildly decreased. - The left atrial cavity is dilated. No HA thrombus. Peak emptying velocity varies from 15- 31.0 cm/s. - The right atrial cavity is dilated. - There is moderately severe (3+) holosystolic mitral valve regurgitation. Regurgitant orifice area (PISA) is 0.32 cm . Mild anterior leaflet override. Two regurgitant jets, one originating from the medial aspect of the coaptation line, the other just lateral of center. May be atrial functional MR. - There is moderately severe (3+) tricuspid valve regurgitation. Suspect atrial functional TR. Predominant jet between septal and posterior leaflets. - Exam was compared with the prior CC echocardiographic exam performed on 08/23/2023. Similar findings. * * * Final * * * [employer] : [id number] amicsSISUID Normal [facility] NURSING PROGon 08-28-2023 NURSING PROG HNO ID: [id number] Author: GISELLE SANTANA RN Service: ? Author Type: Registered Nurse Type: Nursing Progress Note Filed: 08/28/2023 17:30 Note Text: AMBULATORY PATIENT EDUCATION TOPIC: SURVIVAL SKILLS: krystina READINESS TO LEARN COGNITIVE ABILITY: Alert and oriented MOTIVATION TO LEARN: Eager FAMILY SUPPORT: Unable to assess - Family not present INSTRUCTION PROVIDED TO: Patient PATIENT LEARNS BEST BY: Individual Instruction Verbal Instruction FACTORS AFFECTING LEARNING: None PHYSICAL LIMITATIONS AFFECTING LEARNING: None LEARNING RESPONSE DIAGNOSIS: dccv METHOD OF INSTRUCTION: Individual instruction Verbal instruction PATIENT / FAMILY RESPONSE: Verbalizes understanding of: POST-PROCEDURE INSTRUCTIONS-Correct actions to take to reduce post procedure complications PRE-PROCEDURE INSTRUCTIONS-Correct action to take to follow pre-procedure instructions FOLLOW-UP PLAN: Complete - No need for follow-up SUPPLEMENTAL MATERIAL: None REFERRAL (RECOMMENDATION): None Electronically Signed By Giselle Santana RN In Department: CARDIOLOGY Normal [facility] PT EDon 08-28-2023 PT ED HNO ID: [id number] Author: INA SIERRA RN Service: ? Author Type: Registered Nurse Type: Patient Education Filed: 08/28/2023 18:42 Note Text: THE FOLLOWING WAS EVALUATED Motivation To Learn: Interested Family/Significant Other Support: None - Unavailable/disintere sted Cognitive Ability: Alert and oriented Patient Learns Best By: Individual Instruction Verbal Instruction The Following Influencing Factors Were Barriers To This Education Session: None The Following Physical Limitations Were Barriers To This Education Session: None Instruction Provided To: Patient Procedure: Cardioversion Pre-procedure information reviewed: Patient ID verified Procedure verified Physician verified Explanation of procedure Sedation level during procedure MD medication instructions from EP lab request Travel instructions/restrict ions Scheduling information Possible same day discharge versus overnight hospital stay Check out time Family waiting area Physician contact with family after procedure Post Procedure Expectations reviewed: Inpatient hospital stay Post procedure antiarrhythmics and anticoagulation will be discussed with Physician, nurse practitioner or Physician auction assistant upon discharge Instructions for transmitting EKG to Monitoring Center 3 month follow up instructions Contact number for information and questions Patient Evaluation: Verbalizes understanding Follow Up Plan: Follow up as needed Supplemental Material Given: None Instructed By Ina Sierra RN. In Department of [id number]. Normal [facility] PT ED HNO ID: [id number] Author: MARGARET MARCELINO RN Service: Nursing Author Type: Registered Nurse Type: Patient Education Filed: 08/28/2023 18:28 Note Text: .THE FOLLOWING WAS EVALUATED Motivation To Learn: Eager Family/Significant Other Support: None - Unavailable/disintere sted Cognitive Ability: Alert and oriented Patient Learns Best By: Individual Instruction The Following Influencing Factors Were Barriers To This Education Session: None The Following Physical Limitations Were Barriers To This Education Session: None Instruction Provided To: Patient Procedure: Cardioversion The following was reviewed for this procedure: Patient ID verified Procedure verified Physician verified Directions to facility Information regarding sedation level during procedure Overnight stay procedure Check out time Pre procedure blood work Family waiting area Physician contact with family after procedure Post Procedure Expectations Patient Evaluation: Verbalizes understanding Follow Up Plan: Follow-up visit scheduled for check-up and learning reinforcement Supplemental Material Given: None Instructed By Margaret Marcelino RN. In Department of TUI163. [facility] T4 Free SerPl-mCncon 024 Free T4 [Mass/Vol] 1.1 ng/dL Normal 0.9-1.7 [facility] Comment on above: Order Comment: Speci men Type: BLOOD SPECIMENOrdering Facility: [facility] Address: [address] [place] [address] Performed By: #### 2 4323-8, 3024-7 ####[facility] [id number] [place] [address] [place] CBC panel Auto (Bld)on 08-27 Erythrocyte distribution width (RBC) [Ratio] 12.8 % Normal 11.5-15.0 [facility] Comment on above: Order Comment: Speci men Type: BLOOD SPECIMEN [facility] Address: [address] [place] [address] Performed By: #### 2 4323-8, 01027-3 #### [facility] [id number] [place] [address] [place] Hematocrit (Bld) [Volume fraction] 38.9 % Normal 36.0-46.0 [facility] Comment on above: Order Comment: Speci men Type: BLOOD SPECIMEN [facility] Address: [address] [place] [address] Performed By: #### 2 4323-8, 65866-2 #### [facility]IA [id number] [address] [place] [address] [place] Hemoglobin (Bld) [Mass/Vol] 12.7 g/dL Normal 11.5-15.5 [facility] Comment on above: Order Comment: Speci men Type: BLOOD SPECIMEN [facility] Address: [address] [place] [address] Performed By: #### 2 4323-8, 57145-8 #### [facility]IA [id number] [address] [place] [address] [place] MCH (RBC) [Entitic mass] 29.4 pg Normal 26.0-34.0 [facility] Comment on above: Order Comment: Speci men Type: BLOOD SPECIMEN [facility] Address: [address] [place] [address] Performed By: #### 2 4323-8, 12363-3 #### [facility]IA [id number] [address] [place] [address] [place] MCHC (RBC) [Mass/Vol] 32.6 g/dL Normal 30.5-36.0 [facility] Comment on above: Order Comment: Speci men Type: BLOOD SPECIMEN [facility] Address: [address] [place] [address] Performed By: #### 2 4323-8, 40660-1 #### [facility]IA [id number] [address] [place] [address] [place] MCV (RBC) [Entitic vol] 90.0 fL Normal 80.0-100.0 [facility] Comment on above: Order Comment: Speci men Type: BLOOD SPECIMEN [facility] Address: [address] [place] [address] Performed By: #### 2 4323-8, 90387-3 #### [facility]IA [id number] [address] [place] [address] [place] Nucleated RBC (Bld) [#/Vol] 10*3/uL Normal <0.01 [facility] Comment on above: Order Comment: Speci men Type: BLOOD SPECIMEN [facility] Address: [address] [place] [address] Performed By: #### 2 4323-8, 71366-3 #### [facility]IA [id number] [address] [place] [address] [place] Platelet mean volume (Bld) [Entitic vol] 10.4 fL Normal 9.0-12.7 [facility] Comment on above: Order Comment: Speci men Type: BLOOD SPECIMEN [facility] Address: [address] [place] [address] Performed By: #### 2 4323-8, 40304-5 #### [facility]IA [id number] [address] [place] [address] [place] Platelets (Bld) [#/Vol] 143 10*3/uL Low 150-400 [facility] Comment on above: Order Comment: Speci men Type: BLOOD SPECIMEN [facility] Address: [address] [place] [address] Performed By: #### 2 4323-8, 99533-1 #### [facility]IA [id number] [address] [place] [address] [place] RBC (Bld) [#/Vol] 4.32 10*6/uL Normal 3.90-5.20 [facility] Comment on above: Order Comment: Speci men Type: BLOOD SPECIMEN [facility] Address: [address] [place] [address] Performed By: #### 2 4323-8, 28198-7 #### [facility]IA [id number] [address] [place] [address] [place] WBC (Bld) [#/Vol] 5.61 10*3/uL Normal 3.70-11.00 [facility] Comment on above: Order Comment: Speci men Type: BLOOD SPECIMEN [facility] Address: [address] [place] [address] Performed By: #### 2 4323-8, 64564-6 #### [facility]IA [id number] [address] [place] [address] [place] Comprehensive metabolic 2000 panelon 08-27-2023 Albumin [Mass/Vol] 3.6 g/dL Low 3.9-4.9 [facility] Comment on above: Order Comment: Speci men Type: BLOOD SPECIMENOrdering Facility: [facility] Address: [address] [place] [address] Performed By: #### 2 4323-8, 3016-3 ####[facility] [id number] [place] [address] [place] ALP [Catalytic activity/Vol] 59 U/L Normal 34-123 [facility] Comment on above: Order Comment: Speci men Type: BLOOD SPECIMENOrdering Facility: [facility] Address: [address] [place] [address] Performed By: #### 2 4323-8, 6-3 ####[facility] [id number] [place] [address] [place] ALT [Catalytic activity/Vol] 29 U/L Normal 7-38 [facility] Comment on above: Order Comment: Speci men Type: BLOOD SPECIMENOrdering Facility: [facility] Address: [address] [place] [address] Performed By: #### 2 4323-8, 3015-3 ####[facility] [id number] [place] [address] [place] Anion gap [Moles/Vol] 8 mmol/L Low 9-18 [facility] Comment on above: Order Comment: Speci men Type: BLOOD SPECIMENOrdering Facility: [facility] Address: [address] [place] [address] Performed By: #### 2 4323-8, 6-3 ####[facility] [id number] [place] [address] [place] AST [Catalytic activity/Vol] 27 U/L Normal 13-35 [facility] Comment on above: Order Comment: Speci men Type: BLOOD SPECIMENOrdering Facility: [facility] Address: [address] [place] [address] Performed By: #### 2 4323-8, 6-3 ####[facility] [id number] [place] [id number] [place] Bilirubin [Mass/Vol] 0.5 mg/dL Normal 0.2-1.3 [facility] Comment on above: Order Comment: Speci men Type: BLOOD SPECIMENOrdering Facility: [facility] Address: [address] [place] [address] Performed By: #### 2 4323-8, 3016-3 ####[facility] [id number] [place] [address] [place] Calcium [Mass/Vol] 9.1 mg/dL Normal 8.5-10.2 [facility] Comment on above: Order Comment: Speci men Type: BLOOD SPECIMENOrdering Facility: [facility] Address: [address] [place] [address] Performed By: #### 2 4323-8, 6-3 ####[facility] [id number] [place] [address] [place] Chloride [Moles/Vol] 105 mmol/L Normal 97-105 [facility] Comment on above: Order Comment: Speci men Type: BLOOD SPECIMENOrdering Facility: [facility] Address: [address] [place] [address] Performed By: #### 2 4323-8, 6-3 ####[facility] [id number] [place] [address] [place] CO2 [Moles/Vol] 27 mmol/L Normal 22-30 [facility] Comment on above: Order Comment: Speci men Type: BLOOD SPECIMENOrdering Facility: [facility] Address: [address] [place] [address] Performed By: #### 2 4323-8, 3016-3 ####[facility] [id number] [place] [id number] [place] Creatinine [Mass/Vol] 0.72 mg/dL Normal 0.58-0.96 [facility] Comment on above: Order Comment: Speci men Type: BLOOD SPECIMENOrdering Facility: [facility] Address: [address] [place] [address] Performed By: #### 2 4323-8, 3016-3 ####[facility] [id number] [place] [address] [place] Creatinine and Glomerular filtration rate.predicted panel (S/P/Bld) 87 mL/min/1.73m??? Normal >=60 [facility] Comment on above: Order Comment: Nichole becerra Type: BLOOD SPECIMENOrdering Facility: [facility] Address: [address] [place] [address] Result Comment: Shelley mated Glomerular Filtration Rate (eGFR) is calculated using the 2020 CKD-EPI creatinine equation. This equation utilizes serum creatinine, sex, and age as parameters. The creatinine assay has traceable calibration to isotope dilution-mass spectrometry. Refer to KDIGO guidelines for clinical interpretation. In patients with unstable renal function, e.g. those with acute kidney injury, the eGFR may not accurately reflect actual GFR. Performed By: #### 2 4323-8, 3016-3 ####[facility] [id number] [place] [address] [place] Glucose [Mass/Vol] 92 mg/dL Normal 74-99 [facility] Comment on above: Order Comment: Nichole mariam Type: BLOOD SPECIMENOrdering Facility: [facility] Address: [address] [place] [address] Result Comment: The [place] [employer] (ADA) provides guidance for cutoff values for fasting glucose and random glucose. The ADA defines fasting as no caloric intake for at least 8 hours. Fasting plasma glucose results between 100 to 125 mg/dL indicate increased risk for diabetes (prediabetes). Fasting plasma glucose results greater than or equal to 126 mg/dL meet the criteria for diagnosis of diabetes. In the absence of unequivocal hyperglycemia, results should be confirmed by repeat testing. In a patient with classic symptoms of hyperglycemia or hyperglycemic crisis, random plasma glucose results greater than or equal to 200 mg/dL meet the criteria for diagnosis of diabetes. Reference: Standards of Medical Care in Diabetes 2016, [place] [employer]. Diabetes Care. 2016.39(Suppl 1). Performed By: #### 2 4323-8, 6-3 ####[facility] [id number] [place] [address] [place] Potassium [Moles/Vol] 4.7 mmol/L Normal 3.7-5.1 [facility] Comment on above: Order Comment: Speci men Type: BLOOD SPECIMENOrdering Facility: [facility] Address: [address] [place] [address] Performed By: #### 2 4323-8, 3015-3 ####[facility] [id number] [place] [address] [place] Protein [Mass/Vol] 5.8 g/dL Low 6.3-8.0 [facility] Comment on above: Order Comment: Speci men Type: BLOOD SPECIMENOrdering Facility: [facility] Address: [address] [place] [address] Performed By: #### 2 4323-8, 3 ####[facility] [id number] [place] [address] [place] Sodium [Moles/Vol] 140 mmol/L Normal 136-144 [facility] Comment on above: Order Comment: Speci men Type: BLOOD SPECIMENOrdering Facility: [facility] Address: [address] [place] [address] Performed By: #### 2 4323-8, 3 ####[facility] [id number] [address] [address] [place] Urea nitrogen [Mass/Vol] 15 mg/dL Normal 7-21 [facility] Comment on above: Order Comment: Speci men Type: BLOOD SPECIMENOrdering Facility: [facility] Address: [address] [place] [address] Performed By: #### 2 4323-8, 6-3 ####[facility] [id number] [facility] [place] [address] [place] TSH SerPl-aCncon 08-27-2023 TSH Qn 9.850 m[IU]/L High 0.270-4.200 [facility] Comment on above: Order Comment: Speci men Type: BLOOD SPECIMENOrdering Facility: [facility] Address: [address] [place] [address] Performed By: #### 2 4323-8, 3016-3 ####[facility] [id number] [place] [address] [place] Bacteria Ur Culton 4 Bacteria identified Cx Nom (U) CULTURE, URINE: Mixed microbiota, including predominantly: ORGANISM ID: 1 >=100,000 CFU/ml Klebsiella oxytoca ORGANISM ID: 1 (KLEBSIELLA OXYTOCA) ------ ANTIBIOTIC INTERPRETATION AB STATUS REFERENCE RANGE ------ Ampicillin R >=32 F Susceptible <=8 , Intermediate >8 , Resistant >16 Cefazolin S 8 F Susceptible 0-16 , Intermediate <0 or >16 , Resistant >16 For uncomplicated urinary tract infections, cefazolin results can be used to predict susceptibility or resistance to cephalexin. Ceftriaxone S <=1 F Susceptible <=1 , Intermediate >1 , Resistant >=4 Cefepime S <=1 F Susceptible <=2 , Susceptible-Dose Dependent >2 , Resistant >=16 Ertapenem S <=0.5 F Susceptible <=0.5 , Intermediate >.5 , Resistant >1 Meropenem S <=0.25 F Susceptible <=1 , Intermediate >1 , Resistant >2 Ampicillin/Sulbact I 16 F Susceptible <=8 , Intermediate >8 , Resistant >16 Piperacillin/Tazobac S <=4 F Susceptible <=16 , Intermediate >16 , Resistant >64 Gentamicin S <=1 F Susceptible <=4 , Intermediate >4 , Resistant >8 Tobramycin S <=1 F Susceptible <=4 , Intermediate >4 , Resistant >8 Trimeth sulfameth S <=20 F Susceptible <=40 , Resistant >40 Ciprofloxacin S <=0.25 F Susceptible <0.5 , Intermediate >=.5 , Resistant >=1 Nitrofurantoin I 64 F Susceptible <=32 , Intermediate >32 , Resistant >64 Abnormal [facility] Comment on above: Performed By: #### 6 30-4 ####[facility] [id number] [place] [address] [place] CBC panel Auto (Bld)on 08-26 Erythrocyte distribution width (RBC) [Ratio] 13.1 % Normal 11.5-15.0 [facility] Comment on above: Order Comment: Speci men Type: BLOOD SPECIMENOrdering Facility: [facility] Address: [address] [place] [address] Performed By: #### 5 8410-2 ####[facility] [id number] [place] [address] [place] Hematocrit (Bld) [Volume fraction] 38.5 % Normal 36.0-46.0 [facility] Comment on above: Order Comment: Speci men Type: BLOOD SPECIMENOrdering Facility: [facility] Address: [address] [place] [address] Performed By: #### 5 8410-2 ####[facility] [id number] [place] [address] [place] Hemoglobin (Bld) [Mass/Vol] 12.8 g/dL Normal 11.5-15.5 [facility] Comment on above: Order Comment: Speci men Type: BLOOD SPECIMENOrdering Facility: [facility] [facility] Address: [address] [place] [address] Performed By: #### 5 8410-2 ####[facility] [id number] [place] [address] [place] MCH (RBC) [Entitic mass] 30.0 pg Normal 26.0-34.0 [facility] Comment on above: Order Comment: Speci men Type: BLOOD SPECIMENOrdering Facility: [facility] Address: [address] [place] [address] Performed By: #### 5 8410-2 ####[facility] [id number] [place] [address] [place] MCHC (RBC) [Mass/Vol] 33.2 g/dL Normal 30.5-36.0 [facility] Comment on above: Order Comment: Speci men Type: BLOOD SPECIMENOrdering Facility: [facility] Address: [address] [place] [address] Performed By: #### 5 8410-2 ####[facility] [id number] [place] [address] [place] MCV (RBC) [Entitic vol] 90.4 fL Normal 80.0-100.0 [facility] Comment on above: Order Comment: Speci men Type: BLOOD SPECIMENOrdering Facility: [facility] Address: [address] [place] [address] Performed By: #### 5 8410-2 ####[facility] [id number] [place] [address] [place] Nucleated RBC (Bld) [#/Vol] 10*3/uL Normal <0.01 [facility] Comment on above: Order Comment: Speci men Type: BLOOD SPECIMENOrdering Facility: [facility] Address: [address] [place] [address] Performed By: #### 5 8410-2 ####[facility] [id number] [place] [address] [place] Platelet mean volume (Bld) [Entitic vol] 10.6 fL Normal 9.0-12.7 [facility] Comment on above: Order Comment: Speci men Type: BLOOD SPECIMENOrdering Facility: [facility] Address: [address] [place] [address] Performed By: #### 5 8410-2 ####[facility] [id number] [place] [address] [place] Platelets (Bld) [#/Vol] 168 10*3/uL Normal 150-400 [facility] Comment on above: Order Comment: Speci men Type: BLOOD SPECIMENOrdering Facility: [facility] Address: [address] [place] [address] Performed By: #### 5 8410-2 ####[facility] [id number] [place] [address] [place] RBC (Bld) [#/Vol] 4.26 10*6/uL Normal 3.90-5.20 [facility] Comment on above: Order Comment: Speci men Type: BLOOD SPECIMENOrdering Facility: [facility] Address: [address] [place] [address] Performed By: #### 5 8410-2 ####[facility] [id number] [place] [address] [place] WBC (Bld) [#/Vol] 7.27 10*3/uL Normal 3.70-11.00 [facility] Comment on above: Order Comment: Speci men Type: BLOOD SPECIMENOrdering Facility: [facility] Address: [address] [place] [address] Performed By: #### 5 8410-2 ####[facility] [id number] [place] [address] [place] CONSULTon 08-26-2023 CONSULT HNO ID: [id number] Author: AMARIS GRACE MD Service: Urology Author Type: Resident Type: Consults Filed: 08/26/2023 16:29 Note Text: Attestation signed by Stefan Kan MD at 08/27/2023 6:02 PM Urology Staff Note: The plan was reviewed with resident and agree with findings, with additions, alterations, and confirmations noted below. Pending UCX. Follow up as noted. Stefan Kan MD Male Genitourinary Reconstruction AND Prosthetic Surgery Fellow [facility] UROLOGY CONSULT NOTE PATIENT NAME: Asya Asencio ASSESSMENT AND PLAN: Asya Asencio is a 73 year old female with a history of NICM, HTN, Afib w RBR, MR, TR, HF, and urethral stricture s/p recent dilation 04/2023,. Urology is consulted regarding urethral pain, urethral stricture. Recommendations -Obtain regular PVR bladder scans to ensure emptying, if retaining >250cc contact urology as may need robles -Obtain urine culture to rule out UTI -Consider pyridium 200mg TID for 6 doses for symptomatic management of urethral pain, may also use lidojet applied to urethra -Will request outpatient follow up with [facility] provider to evaluate nature of voiding dysfunction, urethral stricture To be discussed with second affiliate Dr. Lucius Grace MD Resident PGY-2 Urology [facility] [place] [facility] Pager [phone] After 5pm and weekends please page Urology sales representative education courses [id number] 3:37 PM 08/26/2023 AKANKSHA Asencio is a 73 year old female with a history of NICM, HTN, Afib w RBR, MR, TR, HF, and urethral stricture s/p recent dilation 04/2023, currently admitted for optimization and workup of mitral and tricuspid valve replacement. Patient initially presented back in June of last year to outside hospital ([facility]) with symptoms of urinary retention, known urethral stricture. At that time she was found to have asymptomatic A-fib with RVR and a EF of 30% as well as valvular disease, diagnosed with non-ischemic cardiomyopathy. Presently she is admitted for optimization and workup by cardiology for valve replacement. On admission she endorses intermittent difficulty with voiding, increased urethral pain. Last had urethral stricture dilated back in April. Of note creatinine creatinine on admission was 1.11 elevated from her baseline of 0.7. Renal bladder ultrasound was negative for hydronephrosis. Creatinine today improved towards baseline 0.84. Patient does not have Robles in place. Presently, endorses stopping/starting, straining to void. Intermittent pain w straining. Urethral pain is positional, worse with sitting Urological review of systems reveals the patient has dysfunctional voiding symptoms dating back to 2012, had urodynamics and was seen by [facility] urology here at [facility] at that time. More recently she has followed locally with [facility]. Has diagnosis of urethral stricture for which she has undergone dilation most recently in April 2023, one before in 11/03. She does not self cath. --- PAST MEDICAL HISTORY Diagnosis Date Anxiety state, unspecified GERD (gastroesophageal reflux disease) Heart murmur Hemorrhoids HTN (hypertension) Hypothyroid IBS (irritable bowel syndrome) Mitral regurgitation Proctocolitis Rectal pain Tricuspid regurgitation Urethral stricture PAST SURGICAL HISTORY Procedure Laterality Date EXC CYST/ABERRANT BREAST TISSUE OPEN 1/> LESION PAST SURGICAL HISTORY OF 1995 tailbone surgery TOTAL ABDOMINAL HYSTERECT W/WO RMVL TUBE OVARY Hysterectomy, MIR UNLISTED PROCEDURE ABDOMEN PERITONEUM AND OMENTUM 1996 Sigmoid colectomy with primary end-to-end colorectal anastomosis. FAMILY HISTORY Problem Relation Age of Onset Diabetes Mother Heart disease Mother Heart disease Father Social History Tobacco Use Smoking status: Former Smokeless tobacco: Never Tobacco comments: Quit 1996. social smoker mostly Vaping Use Vaping Use: Never used Substance Use Topics Alcohol use: Not Currently Drug use: No MEDICATIONS: Prior to Admission Medications: apixaban (ELIQUIS) 5 mg tab(s)Take 5 mg by mouth.Disp: Rfl: aspirin, enteric coated (ASPIRIN, ENTERIC COATED) 81 mg EC tabletTake 81 mg by mouth.Disp: Rfl: atorvastatin (LIPITOR) 40 mg tabletTake 40 mg by mouth.Disp: Rfl: carvedilol (COREG) 3.125 mg tabletTake 3.125 mg by mouth.Disp: Rfl: digoxin (LANOXIN) 125 mcg (0.125 mg) tabletTake 125 mcg by mouth.Disp: Rfl: furosemide (LASIX) 40 mg tabletTake 40 mg by mouth.Disp: Rfl: losartan (COZAAR) 25 mg tabletTake 25 mg by mouth.Disp: Rfl: ondansetron orally disintegrating (ZOFRAN ODT) 4 mg disintegrating tabletDISSOLVE 1 TABLET ON THE TONGUE EVERY 8 MILA (more content not included)... Normal [facility] Comprehensive metabolic 2000 panelon 08-26-2023 Albumin [Mass/Vol] 3.5 g/dL Low 3.9-4.9 [facility] Comment on above: Order Comment: Speci men Type: BLOOD SPECIMENOrdering Facility: [facility] Address: [address] [place] [address] Performed By: #### 2 4323-8 ####[facility] [id number] [place] [address] [place] ALP [Catalytic activity/Vol] 60 U/L Normal 34-123 [facility] Comment on above: Order Comment: Speci men Type: BLOOD SPECIMENOrdering Facility: [facility] Address: [address] [place] [address] Performed By: #### 2 4323-8 ####[facility] [id number] [place] [address] [place] ALT [Catalytic activity/Vol] 25 U/L Normal 7-38 [facility] Comment on above: Order Comment: Speci men Type: BLOOD SPECIMENOrdering Facility: [facility] Address: [address] [place] [address] Performed By: #### 2 4323-8 ####[facility] [id number] [address] [address] [place] Anion gap [Moles/Vol] 10 mmol/L Normal 9-18 [facility] Comment on above: Order Comment: Speci men Type: BLOOD SPECIMENOrdering Facility: [facility] Address: [address] [place] [address] Performed By: #### 2 4323-8 ####[facility] [id number] [place] [address] [place] AST [Catalytic activity/Vol] 22 U/L Normal 13-35 [facility] Comment on above: Order Comment: Speci men Type: BLOOD SPECIMENOrdering Facility: [facility] Address: [address] [place] [address] Performed By: #### 2 4323-8 ####[facility] [id number] [place] [address] [place] Bilirubin [Mass/Vol] 0.4 mg/dL Normal 0.2-1.3 [facility] Comment on above: Order Comment: Speci men Type: BLOOD SPECIMENOrdering Facility: [facility] Address: [address] [place] [address] Performed By: #### 2 4323-8 ####[facility] [id number] [place] [address] [place] Calcium [Mass/Vol] 8.9 mg/dL Normal 8.5-10.2 [facility] Comment on above: Order Comment: Speci men Type: BLOOD SPECIMENOrdering Facility: [facility] Address: [address] [place] [address] Performed By: #### 2 4323-8 ####[facility] [id number] [place] [id number] [place] Chloride [Moles/Vol] 104 mmol/L Normal 97-105 [facility] Comment on above: Order Comment: Speci men Type: BLOOD SPECIMENOrdering Facility: [facility] Address: [address] [place] [address] Performed By: #### 2 4323-8 ####[facility] [id number] [place] [address] [place] CO2 [Moles/Vol] 26 mmol/L Normal 22-30 [facility] Comment on above: Order Comment: Speci men Type: BLOOD SPECIMENOrdering Facility: [facility] Address: [address] [place] [address] Performed By: #### 2 4323-8 ####[facility] [id number] [place] [address] [place] Creatinine [Mass/Vol] 0.84 mg/dL Normal 0.58-0.96 [facility] Comment on above: Order Comment: Speci men Type: BLOOD SPECIMENOrdering Facility: [facility] Address: [address] [place] [address] Performed By: #### 2 4323-8 ####[facility] [id number] [address] [place] Creatinine and Glomerular filtration rate.predicted panel (S/P/Bld) 73 mL/min/1.73m??? Normal >=60 [facility] Comment on above: Order Comment: Speci men Type: BLOOD SPECIMENOrdering Facility: [facility] Address: [address] [place] [address] Result Comment: Shelley mated Glomerular Filtration Rate (eGFR) is calculated using the 2020 CKD-EPI creatinine equation. This equation utilizes serum creatinine, sex, and age as parameters. The creatinine assay has traceable calibration to isotope dilution-mass spectrometry. Refer to KDIGO guidelines for clinical interpretation. In patients with unstable renal function, e.g. those with acute kidney injury, the eGFR may not accurately reflect actual GFR. Performed By: #### 2 4323-8 ####[facility] [id number] [place] [id number] [place] Glucose [Mass/Vol] 93 mg/dL Normal 74-99 [facility] Comment on above: Order Comment: Speci men Type: BLOOD SPECIMENOrdering Facility: [facility] Address: [address] [place] [address] Result Comment: The [place] Diabetes [employer] (ADA) provides guidance for cutoff values for fasting glucose and random glucose. The ADA defines fasting as no caloric intake for at least 8 hours. Fasting plasma glucose results between 100 to 125 mg/dL indicate increased risk for diabetes (prediabetes). Fasting plasma glucose results greater than or equal to 126 mg/dL meet the criteria for diagnosis of diabetes. In the absence of unequivocal hyperglycemia, results should be confirmed by repeat testing. In a patient with classic symptoms of hyperglycemia or hyperglycemic crisis, random plasma glucose results greater than or equal to 200 mg/dL meet the criteria for diagnosis of diabetes. Reference: Standards of Medical Care in Diabetes 2016, [place] [employer]. Diabetes Care. 2016.39(Suppl 1). Performed By: #### 2 4323-8 ####[facility] [id number] [place] [address] [place] Potassium [Moles/Vol] 4.4 mmol/L Normal 3.7-5.1 [facility] Comment on above: Order Comment: Speci men Type: BLOOD SPECIMENOrdering Facility: [facility] Address: [address] [place] [address] Performed By: #### 2 4323-8 ####[facility] [id number] [place] [id number] [place] Protein [Mass/Vol] 5.7 g/dL Low 6.3-8.0 [facility] Comment on above: Order Comment: Speci men Type: BLOOD SPECIMENOrdering Facility: [facility] Address: [address] [place] [address] Performed By: #### 2 4323-8 ####[facility] [id number] [place] [address] [place] Sodium [Moles/Vol] 140 mmol/L Normal 136-144 [facility] Comment on above: Order Comment: Speci men Type: BLOOD SPECIMENOrdering Facility: [facility] Address: [address] [place] [address] Performed By: #### 2 4323-8 ####[facility] [id number] [place] [address] [place] Urea nitrogen [Mass/Vol] 19 mg/dL Normal 7-21 [facility] Comment on above: Order Comment: Speci men Type: BLOOD SPECIMENOrdering Facility: [facility] Address: [address] [place] [address] Performed By: #### 2 4323-8 ####[facility] [id number] [place] [address] [place] CBC panel Auto (Bld)on 08-25 Erythrocyte distribution width (RBC) [Ratio] 12.9 % Normal 11.5-15.0 [facility] Comment on above: Order Comment: Speci men Type: BLOOD SPECIMEN [facility] Address: [address] [place] [address] Performed By: #### 2 4323-8, 74804-7 #### [facility]IA [id number] [address] [place] [address] [place] Hematocrit (Bld) [Volume fraction] 37.8 % Normal 36.0-46.0 [facility] Comment on above: Order Comment: Speci men Type: BLOOD SPECIMEN [facility] Address: [address] [place] [address] Performed By: #### 2 4323-8, 07023-5 #### [facility]IA [id number] [address] [place] [address] [place] Hemoglobin (Bld) [Mass/Vol] 12.8 g/dL Normal 11.5-15.5 [facility] Comment on above: Order Comment: Speci men Type: BLOOD SPECIMEN [facility] Address: [address] [place] [address] Performed By: #### 2 4323-8, 29466-9 #### [facility] CLIA [id number] [address] [place] [address] [place] MCH (RBC) [Entitic mass] 29.9 pg Normal 26.0-34.0 [facility] Comment on above: Order Comment: Speci men Type: BLOOD SPECIMEN [facility] Address: [address] [place] [address] Performed By: #### 2 4323-8, 42157-5 #### [facility] CLIA [id number] [address] [place] [address] [place] MCHC (RBC) [Mass/Vol] 33.9 g/dL Normal 30.5-36.0 [facility] Comment on above: Order Comment: Speci men Type: BLOOD SPECIMEN [facility] Address: [address] [place] [address] Performed By: #### 2 4323-8, 87767-4 #### [facility] CLIA [id number] [address] [place] [address] [place] MCV (RBC) [Entitic vol] 88.3 fL Normal 80.0-100.0 [facility] Comment on above: Order Comment: Speci men Type: BLOOD SPECIMEN [facility] Address: [address] [place] [address] Performed By: #### 2 4323-8, 76969-8 #### [facility] CLIA [id number] [address] [place] [address] [place] Nucleated RBC (Bld) [#/Vol] 10*3/uL Normal <0.01 [facility] Comment on above: Order Comment: Speci men Type: BLOOD SPECIMEN [facility] Address: [address] [place] [address] Performed By: #### 2 4323-8, 40790-7 #### [facility] CLIA [id number] [address] [place] [address] [place] Platelet mean volume (Bld) [Entitic vol] 10.1 fL Normal 9.0-12.7 [facility] Comment on above: Order Comment: Speci men Type: BLOOD SPECIMEN [facility] Address: [address] [place] [address] Performed By: #### 2 4323-8, 25304-7 #### [facility] CLIA [id number] [address] [place] [address] [place] Platelets (Bld) [#/Vol] 173 10*3/uL Normal 150-400 [facility] Comment on above: Order Comment: Speci men Type: BLOOD SPECIMEN [facility] Address: [address] [place] [address] Performed By: #### 2 4323-8, 45075-7 #### [facility] CLIA [id number] [address] [place] [address] [place] RBC (Bld) [#/Vol] 4.28 10*6/uL Normal 3.90-5.20 [facility] Comment on above: Order Comment: Speci men Type: BLOOD SPECIMEN [facility] Address: [address] [place] [address] Performed By: #### 2 4323-8, 41404-3 #### [facility] CLIA [id number] [address] [place] [address] [place] WBC (Bld) [#/Vol] 6.38 10*3/uL Normal 3.70-11.00 [facility] Comment on above: Order Comment: Speci men Type: BLOOD SPECIMEN [facility] Address: [address] [place] [address] Performed By: #### 2 4323-8, 54864-1 #### [facility] CLIA [id number] [address] [place] [address] [place] Comprehensive metabolic 2000 panelon 08-25-2023 Albumin [Mass/Vol] 3.4 g/dL Low 3.9-4.9 [facility] Comment on above: Order Comment: Speci men Type: BLOOD SPECIMEN [facility] Address: [address] [place] [address] Performed By: #### 2 4323-8, 81662-2 #### [facility] CLIA [id number] [address] [place] [address] [place] ALP [Catalytic activity/Vol] 48 U/L Normal 34-123 [facility] Comment on above: Order Comment: Speci men Type: BLOOD SPECIMEN [facility] Address: [address] [place] [address] Performed By: #### 2 4323-8, #### [facility] CLIA [id number] [address] [place] [address] [place] ALT [Catalytic activity/Vol] 26 U/L Normal 7-38 [facility] Comment on above: Order Comment: Speci men Type: BLOOD SPECIMEN [facility] Address: [address] [place] [address] Performed By: #### 2 4323-8, #### [facility] CLIA [id number] [address] [place] [address] [place] Anion gap [Moles/Vol] 10 mmol/L Normal 9-18 [facility] Comment on above: Order Comment: Speci men Type: BLOOD SPECIMEN [facility] Address: [address] [place] [id number] Performed By: #### 2 4323-8, #### [facility] CLIA [id number] [address] [place] [address] [place] AST [Catalytic activity/Vol] 23 U/L Normal 13-35 [facility] Comment on above: Order Comment: Speci men Type: BLOOD SPECIMEN [facility] Address: [address] [place] [address] Performed By: #### 2 432-8, #### [facility] CLIA [id number] [address] [place] [address] [place] Bilirubin [Mass/Vol] 0.9 mg/dL Normal 0.2-1.3 [facility] Comment on above: Order Comment: Speci men Type: BLOOD SPECIMEN [facility] Address: [address] [place] [address] Performed By: #### 2 432-8, #### [facility] CLIA [id number] [address] [place] [address] [place] Calcium [Mass/Vol] 9.0 mg/dL Normal 8.5-10.2 [facility] Comment on above: Order Comment: Speci men Type: BLOOD SPECIMEN [facility] Address: [address] [place] [address] Performed By: #### 2 4323-8, #### [facility] CLIA [id number] [address] [place] [address] [place] Chloride [Moles/Vol] 97 mmol/L Normal 97-105 [facility] Comment on above: Order Comment: Speci men Type: BLOOD SPECIMEN [facility] Address: [address] [place] [address] Performed By: #### 2 4323-8, #### [facility] CLIA [id number] [address] [place] [address] [place] CO2 [Moles/Vol] 29 mmol/L Normal 22-30 [facility] Comment on above: Order Comment: Césari mariam Type: BLOOD SPECIMEN [facility] Address: [address] [place] [address] Performed By: #### 2 4323-8, #### [facility] CLIA [id number] [facility] [place] [address] [place] Creatinine [Mass/Vol] 1.02 mg/dL High 0.58-0.96 [facility] Comment on above: Order Comment: Césari men Type: BLOOD SPECIMEN [facility] Address: [address] [place] [address] Performed By: #### 2 4323-8, #### [facility] CLIA [id number] [address] [place] [address] [place] Creatinine and Glomerular filtration rate.predicted panel (S/P/Bld) 57 mL/min/1.73m??? Low >=60 [facility] Comment on above: Order Comment: Nichole becerra Type: BLOOD SPECIMEN [facility] Address: [address] [place] [address] Result Comment: Shelley mated Glomerular Filtration Rate (eGFR) is calculated using the 2020 CKD-EPI creatinine equation. This equation utilizes serum creatinine, sex, and age as parameters. The creatinine assay has traceable calibration to isotope dilution-mass spectrometry. Refer to KDIGO guidelines for clinical interpretation. In patients with unstable renal function, e.g. those with acute kidney injury, the eGFR may not accurately reflect actual GFR. Performed By: #### 2 4323-8, #### [facility] CLIA [id number] [address] [place] [address] [place] Glucose [Mass/Vol] 84 mg/dL Normal 74-99 [facility] Comment on above: Order Comment: Speci men Type: BLOOD SPECIMEN [facility] Address: [address] [place] [address] Result Comment: The [place] [employer] (ADA) provides guidance for cutoff values for fasting glucose and random glucose. The ADA defines fasting as no caloric intake for at least 8 hours. Fasting plasma glucose results between 100 to 125 mg/dL indicate increased risk for diabetes (prediabetes). Fasting plasma glucose results greater than or equal to 126 mg/dL meet the criteria for diagnosis of diabetes. In the absence of unequivocal hyperglycemia, results should be confirmed by repeat testing. In a patient with classic symptoms of hyperglycemia or hyperglycemic crisis, random plasma glucose results greater than or equal to 200 mg/dL meet the criteria for diagnosis of diabetes. Reference: Standards of Medical Care in Diabetes 2016, [place] [employer]. Diabetes Care. 2016.39(Suppl 1). Performed By: #### 2 4323-8, #### [facility] [facility] CLIA [id number] [address] [place] [address] [place] Potassium [Moles/Vol] 3.4 mmol/L Low 3.7-5.1 [facility] Comment on above: Order Comment: Speci men Type: BLOOD SPECIMEN [facility]ing Facility[facility] Address: [address] [place] [address] Performed By: #### 2 4323-03, #### [facility] CLIA [id number] [address] [place] [address] [place] Protein [Mass/Vol] 5.7 g/dL Low 6.3-8.0 [facility] Comment on above: Order Comment: Speci men Type: BLOOD SPECIMEN [facility]ing Facility[facility] Address: [address] [place] [address] Performed By: #### 2 4323-03, #### [facility] CLIA [id number] [address] [place] [id number] [place] Sodium [Moles/Vol] 136 mmol/L Normal 136-144 [facility] Comment on above: Order Comment: Speci men Type: BLOOD SPECIMEN [facility]ing Facility[facility] Address: [address] [place] [address] Performed By: #### 2 4323-8, 93696-0 #### [facility] CLIA [id number] [address] [place] [address] [place] Urea nitrogen [Mass/Vol] 22 mg/dL High 7-21 [facility] Comment on above: Order Comment: Speci men Type: BLOOD SPECIMEN [facility] Address: [address] [place] [address] Performed By: #### 2 4323-8, 16699-8 #### [facility] CLIA [id number] [address] [place] [address] [place] Magnesium SerPl-mCncon 08-25 Magnesium [Mass/Vol] 2.2 mg/dL Normal 1.7-2.3 [facility] Comment on above: Order Comment: Speci men Type: BLOOD SPECIMEN [facility]ing Facility: [facility] Address: [address] [place] [address] Performed By: #### 2 4323-8, 27104-7 #### [facility] CLIA [id number] [address] [place] [address] [place] POTASSIUM BLDon 08-25-2023 Potassium [Moles/Vol] 4.3 mmol/L Normal 3.7-5.1 [facility] Comment on above: Order Comment: Speci men Type: BLOOD SPECIMENOrdering Facility: [facility] Address: [address] [place] [address] Performed By: #### K 1 ####[facility] [id number] [place] [address] [place] US KIDNEY/BLADDERon 08-25-19 24 US KIDNEY/BLADDER * * *Final Report* * * DATE OF EXAM: Aug 25 2023 10:32AM U 1055 - US KIDNEY/BLADDER / PROCEDURE REASON: Urinary retention * * * * Physician Interpretation * * * * EXAMINATION: RENAL ULTRASOUND CLINICAL HISTORY: Urinary retention; dysuria TECHNIQUE: Sonography of the kidneys and urinary bladder was performed. Images were obtained and stored in a permanent archive. MQ: UR_1 COMPARISON: 09/07/2017 RESULT: Right Kidney: -Renal length: 9.6 cm -Parenchyma: Normal parenchymal echogenicity. Normal parenchymal thickness. -Collecting system: No hydronephrosis. -Calculus: No echogenic, shadowing calculus. -Lesion: Possible peripelvic cyst. Left Kidney: -Renal length: 10.4 cm -Parenchyma: Normal parenchymal echogenicity. Normal parenchymal thickness. -Collecting system: No hydronephrosis. -Calculus: No echogenic, shadowing calculus. -Lesion: Possible peripelvic cyst. Bladder: Normal sonographic appearance. IMPRESSION: NO HYDRONEPHROSIS. Yard Stocker: LILIANA Transcribe Date/Time: Aug 25 2023 10:35A Dictated by : NANCY YOUNGBLOOD MD This examination was interpreted and the report reviewed and electronically signed by: NANCY YOUNGBLOOD MD on Aug 25 2023 10:38AM EST [id number] Normal [facility] CBC W Auto Differential pane l (Bld)on 08-24-2023 Basophils (Bld) [#/Vol] 0.03 10*3/uL Normal <0.11 [facility] Comment on above: Order Comment: Speci men Type: BLOOD SPECIMEN [facility] Address: [address] [place] [address] Performed By: #### 2 4323-8, 69770-6 #### [facility] CLIA [id number] [address] [place] [address] [place] Basophils/100 WBC (Bld) 0.4 % Normal [facility] Comment on above: Order Comment: Speci men Type: BLOOD SPECIMEN Ordering Facility: [facility] Address: [address] [place] [address] Performed By: #### 2 4323-8, 02006-0 #### [facility] CLIA [id number] [address] [place] [address] [place] Differential cell count method Nom (Bld) Auto Normal [facility] Comment on above: Order Comment: Speci men Type: BLOOD SPECIMEN [facility]ing Facility: [facility] Address: [address] [place] [address] Performed By: #### 2 4323-8, 83156-3 #### [facility] CLIA [id number] [address] [place] [address] [place] Eosinophils (Bld) [#/Vol] 0.03 10*3/uL Normal <0.46 [facility] Comment on above: Order Comment: Speci men Type: BLOOD SPECIMEN [facility]ing Facility: [facility] Address: [address] [place] [address] Performed By: #### 2 4323-8, 73462-3 #### [facility] CLIA [id number] [address] [place] [address] [place] Eosinophils/100 WBC (Bld) 0.4 % Normal [facility] Comment on above: Order Comment: Speci men Type: BLOOD SPECIMEN Ordering Facility: [facility] Address: [address] [place] [address] Performed By: #### 2 4323-8, 66668-8 #### [facility] CLIA [id number] [address] [place] [address] [place] Erythrocyte distribution width (RBC) [Ratio] 12.7 % Normal 11.5-15.0 [facility] Comment on above: Order Comment: Speci men Type: BLOOD SPECIMEN Ordering Facility: [facility] Address: [address] [place] [address] Performed By: #### 2 4323-8, 41881-8 #### [facility] CLIA [id number] [address] [place] [address] [place] Hematocrit (Bld) [Volume fraction] 40.4 % Normal 36.0-46.0 [facility] Comment on above: Order Comment: Speci men Type: BLOOD SPECIMEN [facility]ing Facility: [facility] Address: [address] [place] [address] Performed By: #### 2 4323-8, 77498-7 #### [facility] CLIA [id number] [address] [place] [address] [place] Hemoglobin (Bld) [Mass/Vol] 13.2 g/dL Normal 11.5-15.5 [facility] Comment on above: Order Comment: Speci men Type: BLOOD SPECIMEN Ordering Facility: [facility] Address: [address] [place] [address] Performed By: #### 2 4323-8, 46580-3 #### [facility] CLIA [id number] [address] [place] [address] [place] Immature granulocytes (Bld) [#/Vol] 10*3/uL Normal <0.10 [facility] Comment on above: Order Comment: Speci men Type: BLOOD SPECIMEN Ordering Facility: [facility] Address: [address] [place] [address] Performed By: #### 2 4323-8, 73666-5 #### [facility] CLIA [id number] [address] [place] [address] [place] Immature granulocytes/100 WBC (Bld) 0.3 % Normal [facility] Comment on above: Order Comment: Speci men Type: BLOOD SPECIMEN Ordering Facility: [facility] Address: [address] [place] [address] Performed By: #### 2 4323-8, 20124-1 #### [facility] CLIA [id number] [address] [place] [address] [place] Lymphocytes (Bld) [#/Vol] 1.73 10*3/uL Normal 1.00-4.00 [facility] Comment on above: Order Comment: Speci men Type: BLOOD SPECIMEN Ordering Facility: [facility] Address: [address] [place] [address] Performed By: #### 2 4323-8, 00511-9 #### [facility] CLIA [id number] [address] [place] [address] [place] Lymphocytes/100 WBC (Bld) 23.4 % Normal [facility] Comment on above: Order Comment: Speci men Type: BLOOD SPECIMEN Ordering Facility: [facility] Address: [address] [place] [address] Performed By: #### 2 4323-8, 08048-8 #### [facility] CLIA [id number] [address] [place] [address] [place] MCH (RBC) [Entitic mass] 29.3 pg Normal 26.0-34.0 [facility] Comment on above: Order Comment: Speci men Type: BLOOD SPECIMEN Ordering Facility: [facility] Address: [address] [place] [address] Performed By: #### 2 4323-8, 44829-2 #### [facility] CLIA [id number] [address] [place] [address] [place] MCHC (RBC) [Mass/Vol] 32.7 g/dL Normal 30.5-36.0 [facility] Comment on above: Order Comment: Speci men Type: BLOOD SPECIMEN Ordering Facility: [facility] Address: [address] [place] [address] Performed By: #### 2 4323-8, 41504-6 #### [facility] CLIA [id number] [address] [place] [address] [place] MCV (RBC) [Entitic vol] 89.8 fL Normal 80.0-100.0 [facility] Comment on above: Order Comment: Speci men Type: BLOOD SPECIMEN Ordering Facility: [facility] Address: [address] [place] [address] Performed By: #### 2 4323-8, 99609-0 #### [facility] CLIA [id number] [address] [place] [address] [place] Monocytes (Bld) [#/Vol] 0.77 10*3/uL Normal <0.87 [facility] Comment on above: Order Comment: Speci men Type: BLOOD SPECIMEN Ordering Facility: [facility] Address: [address] [place] [address] Performed By: #### 2 4323-8, 31493-3 #### [facility] CLIA [id number] [address] [place] [address] [place] Monocytes/100 WBC (Bld) 10.4 % Normal [facility] Comment on above: Order Comment: Speci men Type: BLOOD SPECIMEN [facility]ing Facility: [facility] Address: [address] [place] [address] Performed By: #### 2 4323-8, 74119-2 #### [facility] CLIA [id number] [address] [place] [address] [place] Neutrophils (Bld) [#/Vol] 4.82 10*3/uL Normal 1.45-7.50 [facility] Comment on above: Order Comment: Speci men Type: BLOOD SPECIMEN Ordering Facility: [facility] Address: [address] [place] [address] Performed By: #### 2 4323-8, 34507-4 #### [facility] CLIA [id number] [address] [place] [address] [place] Neutrophils/100 WBC (Bld) 65.1 % Normal [facility] Comment on above: Order Comment: Speci men Type: BLOOD SPECIMEN Ordering Facility: [facility] Address: [address] [place] [address] Performed By: #### 2 4323-8, 59309-2 #### [facility] CLIA [id number] [address] [place] [address] [place] Nucleated RBC (Bld) [#/Vol] 10*3/uL Normal <0.01 [facility] Comment on above: Order Comment: Speci men Type: BLOOD SPECIMEN Ordering Facility: [facility] Address: [address] [place] [address] Performed By: #### 2 4323-8, 48559-0 #### [facility] CLIA [id number] [address] [place] [address] [place] Nucleated RBC/100 WBC (Bld) [Ratio] 0.0 /100 WBC Normal [facility] Comment on above: Order Comment: Speci men Type: BLOOD SPECIMEN Ordering Facility: [facility] Address: [address] [place] [address] Performed By: #### 2 4323-8, 74065-6 #### [facility] CLIA [id number] [address] [place] [address] [place] Platelet mean volume (Bld) [Entitic vol] 10.4 fL Normal 9.0-12.7 [facility] Comment on above: Order Comment: Speci men Type: BLOOD SPECIMEN [facility]ing Facility[facility] Address: [address] [place] [address] Performed By: #### 2 4323-8, 76803-5 #### [facility] CLIA [id number] [address] [place] [address] [place] Platelets (Bld) [#/Vol] 201 10*3/uL Normal 150-400 [facility] Comment on above: Order Comment: Speci men Type: BLOOD SPECIMEN [facility] Address: [address] [place] [address] Performed By: #### 2 4323-8, 01525-4 #### [facility] CLIA [id number] [address] [place] [address] [place] RBC (Bld) [#/Vol] 4.50 10*6/uL Normal 3.90-5.20 [facility] Comment on above: Order Comment: Speci men Type: BLOOD SPECIMEN [facility] Address: [address] [place] [address] Performed By: #### 2 4323-8, 12423-0 #### [facility] CLIA [id number] [address] [place] [address] [place] WBC (Bld) [#/Vol] 7.40 10*3/uL Normal 3.70-11.00 [facility] Comment on above: Order Comment: Speci men Type: BLOOD SPECIMEN [facility] Address: [address] [place] [address] Performed By: #### 2 4323-8, 70423-5 #### [facility] CLIA [id number] [address] [place] [address] [place] [facility] (HVI) ASYA ASENCIO I ([id number]) 1950 F Date Time Provider Department 08/24/23 MARGARET HAWKINS I During your visit today, we recorded the following information about you: Margaret Hawkins APRN.WEAVING TEACHER 08/24/2023 6:29 AM Signed [facility] Center Inbound Phone Encounter DATE of SERVICE: 08/24/2023 TIME of SERVICE: 6:20 AM Status: Needs follow-up Service/Provider: [facility]/Dr. Sorto Reason for call: Ms. Asencio is calling into [facility] after hours regarding being directly admitted to the hospital. She states she spoke to Dr. Sorto and told him that her medications aren't working, and that she doesn't want to continue to wear the life vest. She mentions that he told her he would speak with Dr. Harley and have her directly admitted to adjust her medications, etc. She states she has not heard from anyone from either office. Contact information: Resolution: Informed patient I do not have direct admitting privileges, and suggested if patient is not feeling well that she go to nearest ER. Patient is not willing to go to ER, and states she wants to be directly admitted today. Advised patient to call the physicians office this AM regarding this matter, but that I strongly suggest if she is not feeling well she should not delay care, and go to the ER. I will forward this encounter to the physicians she has requested. Patient states she will not go to ER and will attempt to reach their offices. Margaret Hawkins APRN.WEAVING TEACHER Date of Resolution: 08/24/2023 Time of Resolution 6:29 AM Allergies As of Date: 08/24/2023 Noted Allergy Reaction ASPIRIN 05/14/2010 14 - Other: See Comments Comments: Patient states causes Bruising. CEPHALEXIN 01/30/2023 16 - Unknown DEMORAL (MEPERIDINE) 05/14/2010 14 - Other: See Comments Comments: Patient does not know if she is allergic but know she is not suppose to take it. LATEX 09/26/2012 2 - Rash 4 - Hives MORPHINE 04/12/2023 16 - Unknown Comments: Other Reaction(s): Unknown cause SULFA (SULFONAMIDE ANTIBIOTICS) 07/25/2023 5 - Intolerance Date Reviewed: 08/23/2023 Reviewed by: Felicita Aguilera, RN - Fully Assessed Reason for Visit: Returning Patient's Call [408] Prescriptions as of 08/24/2023 - apixaban (ELIQUIS) 5 mg tab(s) Take 5 mg by mouth. - aspirin, enteric coated (ASPIRIN, ENTERIC COATED) 81 mg EC tablet Take 81 mg by mouth. - atorvastatin (LIPITOR) 40 mg tablet Take 40 mg by mouth. - carvedilol (COREG) 3.125 mg tablet Take 3.125 mg by mouth. - digoxin (LANOXIN) 125 mcg (0.125 mg) tablet Take 125 mcg by mouth. - furosemide (LASIX) 40 mg tablet Take 40 mg by mouth. - losartan (COZAAR) 25 mg tablet Take 25 mg by mouth. - ondansetron orally disintegrating (ZOFRAN ODT) 4 mg disintegrating tablet DISSOLVE 1 TABLET ON THE TONGUE EVERY 8 HOURS - estradiol (ESTRACE) 0.01 % (0.1 mg/gram) vaginal cream Use 1 g vaginally. - LORazepam (ATIVAN) 0.5 mg Take 0.5 mg by mouth. - loperamide (IMODIUM) 2 mg cap(s) Take 2 capsules by mouth one time only for 1 dose. Take one hour after last bowel movement - estradiol 0.01 % (0.1 mg/g) vaginal cream Use a pea sized drop on finger, once every other day - tamsulosin 0.4 mg Cp24 Take 1 capsule by mouth daily at bedtime. - ATIVAN 0.5 MG TAB Take one(1) tablet two(2) times daily. Problem List As Of Date 08/24/2023 Noted Resolved INTESTINAL OBSTRUCT NOS [K56.609] 03/13/2009 Incomplete bladder emptying [R33.9] 09/26/2012 Non-rheumatic mitral regurgitation [I34.0] 07/25/2023 Nonrheumatic tricuspid valve regurgitation [I36*07/25/2023 Encounter Status:Closed by MARGARET HAWKINS on 08/24/23 [facility] Telephone (CARCMN) ASYA ASENCIO I ([id number]) 1950 F Date Time Provider Department 08/24/23 ALEA HARLEY CARCMN During your visit today, we recorded the following information about you: Allergies As of Date: 08/24/2023 Noted Allergy Reaction ASPIRIN 05/14/2010 14 - Other: See Comments Comments: Patient states causes Bruising. CEPHALEXIN 01/30/2023 16 - Unknown DEMORAL (MEPERIDINE) 05/14/2010 14 - Other: See Comments Comments: Patient does not know if she is allergic but know she is not suppose to take it. LATEX 09/26/2012 2 - Rash 4 - Hives MORPHINE 04/12/2023 16 - Unknown Comments: Other Reaction(s): Unknown cause SULFA (SULFONAMIDE ANTIBIOTICS) 07/25/2023 5 - Intolerance Date Reviewed: 08/23/2023 Reviewed by: Felicita Aguilera RN - Fully Assessed Reason for Visit: Direct Admit [Other] Visit Diagnosis:Decompensat ed heart failure (HCC) [I50.9] Order(s):[facility] ([place], [place]) [2669120] Order #: [id number]: 1 Prescriptions as of 08/24/2023 - apixaban (ELIQUIS) 5 mg tab(s) Take 5 mg by mouth. - aspirin, enteric coated (ASPIRIN, ENTERIC COATED) 81 mg EC tablet Take 81 mg by mouth. - atorvastatin (LIPITOR) 40 mg tablet Take 40 mg by mouth. - carvedilol (COREG) 3.125 mg tablet Take 3.125 mg by mouth. - digoxin (LANOXIN) 125 mcg (0.125 mg) tablet Take 125 mcg by mouth. - furosemide (LASIX) 40 mg tablet Take 40 mg by mouth. - losartan (COZAAR) 25 mg tablet Take 25 mg by mouth. - ondansetron orally disintegrating (ZOFRAN ODT) 4 mg disintegrating tablet DISSOLVE 1 TABLET ON THE TONGUE EVERY 8 HOURS - estradiol (ESTRACE) 0.01 % (0.1 mg/gram) vaginal cream Use 1 g vaginally. - LORazepam (ATIVAN) 0.5 mg Take 0.5 mg by mouth. - loperamide (IMODIUM) 2 mg cap(s) Take 2 capsules by mouth one time only for 1 dose. Take one hour after last bowel movement - estradiol 0.01 % (0.1 mg/g) vaginal cream Use a pea sized drop on finger, once every other day - tamsulosin 0.4 mg Cp24 Take 1 capsule by mouth daily at bedtime. - ATIVAN 0.5 MG TAB Take one(1) tablet two(2) times daily. Problem List As Of Date 08/24/2023 Noted Resolved INTESTINAL OBSTRUCT NOS [K56.609] 03/13/2009 Incomplete bladder emptying [R33.9] 09/26/2012 Non-rheumatic mitral regurgitation [I34.0] 07/25/2023 Nonrheumatic tricuspid valve regurgitation [I36*07/25/2023 Encounter Status:Closed by JUNITO MENDES on 08/24/23 Normal [facility] Comprehensive metabolic 2000 panelon 08-24-2023 Albumin [Mass/Vol] 3.8 g/dL Low 3.9-4.9 [facility] Comment on above: Order Comment: Speci men Type: BLOOD SPECIMENOrdering Facility: [facility] Address: [address] [place] [address] Performed By: #### 2 4323-8 ####[facility] [id number] [place] [address] [place] ALP [Catalytic activity/Vol] 61 U/L Normal 34-123 [facility] Comment on above: Order Comment: Speci men Type: BLOOD SPECIMENOrdering Facility: [facility] Address: [address] [place] [address] Performed By: #### 2 4323-8 ####[facility] [id number] [place] [address] [place] ALT [Catalytic activity/Vol] 34 U/L Normal 7-38 [facility] Comment on above: Order Comment: Speci men Type: BLOOD SPECIMENOrdering Facility: [facility] Address: [address] [place] [address] Performed By: #### 2 4323-8 ####[facility] [id number] [place] [address] [place] Anion gap [Moles/Vol] 8 mmol/L Low 9-18 [facility] Comment on above: Order Comment: Speci men Type: BLOOD SPECIMENOrdering Facility: [facility] Address: [address] [place] [address] Performed By: #### 2 4323-8 ####[facility] [id number] [place] [address] [place] AST [Catalytic activity/Vol] 27 U/L Normal 13-35 [facility] Comment on above: Order Comment: Speci men Type: BLOOD SPECIMENOrdering Facility: [facility] Address: [address] [place] [address] Performed By: #### 2 4323-8 ####[facility] [id number] [place] [address] [place] Bilirubin [Mass/Vol] 0.7 mg/dL Normal 0.2-1.3 [facility] Comment on above: Order Comment: Speci men Type: BLOOD SPECIMENOrdering Facility: [facility] Address: [address] [place] [address] Performed By: #### 2 4323-8 ####[facility] [id number] [place] [address] [place] Calcium [Mass/Vol] 9.2 mg/dL Normal 8.5-10.2 [facility] Comment on above: Order Comment: Speci men Type: BLOOD SPECIMENOrdering Facility: [facility] Address: [address] [place] [address] Performed By: #### 2 4323-8 ####[facility] [id number] [place] [address] [place] Chloride [Moles/Vol] 97 mmol/L Normal 97-105 [facility] Comment on above: Order Comment: Speci men Type: BLOOD SPECIMENOrdering Facility: [facility] Address: [address] [place] [address] Performed By: #### 2 4323-8 ####[facility] [id number] [place] [address] [place] CO2 [Moles/Vol] 32 mmol/L High 22-30 [facility] Comment on above: Order Comment: Speci men Type: BLOOD SPECIMENOrdering Facility: [facility] Address: [address] [place] [address] Performed By: #### 2 4323-8 ####[facility] [id number] [place] [address] [place] Creatinine [Mass/Vol] 1.11 mg/dL High 0.58-0.96 [facility] Comment on above: Order Comment: Nichole becerra Type: BLOOD SPECIMENOrdering Facility: [facility] Address: [address] [place] [address] Performed By: #### 2 4323-8 ####[facility] [id number] [place] [address] [place] Creatinine and Glomerular filtration rate.predicted panel (S/P/Bld) 52 mL/min/1.73m??? Low >=60 [facility] Comment on above: Order Comment: Nichole becerra Type: BLOOD SPECIMENOrdering Facility: [facility] Address: [address] [place] [address] Result Comment: Shelley mated Glomerular Filtration Rate (eGFR) is calculated using the 2020 CKD-EPI creatinine equation. This equation utilizes serum creatinine, sex, and age as parameters. The creatinine assay has traceable calibration to isotope dilution-mass spectrometry. Refer to KDIGO guidelines for clinical interpretation. In patients with unstable renal function, e.g. those with acute kidney injury, the eGFR may not accurately reflect actual GFR. Performed By: #### 2 4323-8 ####[facility] [id number] [place] [address] [place] Glucose [Mass/Vol] 123 mg/dL High 74-99 [facility] Comment on above: Order Comment: Nichole becerra Type: BLOOD SPECIMENOrdering Facility: [facility] Address: [address] [place] [address] Result Comment: The [place] [employer] (ADA) provides guidance for cutoff values for fasting glucose and random glucose. The ADA defines fasting as no caloric intake for at least 8 hours. Fasting plasma glucose results between 100 to 125 mg/dL indicate increased risk for diabetes (prediabetes). Fasting plasma glucose results greater than or equal to 126 mg/dL meet the criteria for diagnosis of diabetes. In the absence of unequivocal hyperglycemia, results should be confirmed by repeat testing. In a patient with classic symptoms of hyperglycemia or hyperglycemic crisis, random plasma glucose results greater than or equal to 200 mg/dL meet the criteria for diagnosis of diabetes. Reference: Standards of Medical Care in Diabetes 2016, [place]. Diabetes Care. 2016.39(Suppl 1). Performed By: #### 2 4323-8 ####[facility]CL[facility] [id number] [place] [address] [place] Potassium [Moles/Vol] 3.7 mmol/L Normal 3.7-5.1 [facility] Comment on above: Order Comment: Speci men Type: BLOOD SPECIMENOrdering Facility: [facility] Address: [address] [place] [address] Performed By: #### 2 4323-8 ####[facility] LABIA [id number] [place] [address] [place] Protein [Mass/Vol] 6.1 g/dL Low 6.3-8.0 [facility] Comment on above: Order Comment: Speci men Type: BLOOD SPECIMENOrdering Facility: [facility] Address: [address] [place] [address] Performed By: #### 2 4323-8 ####[facility] [id number] [place] [address] [place] Sodium [Moles/Vol] 137 mmol/L Normal 136-144 [facility] Comment on above: Order Comment: Speci men Type: BLOOD SPECIMENOrdering Facility: [facility] Address: [address] [place] [address] Performed By: #### 2 4323-8 ####[facility]CL[facility] [id number] [place] [id number] [place] Urea nitrogen [Mass/Vol] 21 mg/dL Normal 7-21 [facility] Comment on above: Order Comment: Speci men Type: BLOOD SPECIMENOrdering Facility: [facility] Address: [address] [place] [address] Performed By: #### 2 4323-8 ####[facility] [id number] [address] [place] DIGOXIN/LANOXINon 08-24-2023 Digoxin [Mass/Vol] 1.1 ng/mL Normal 0.6-1.2 [facility] Comment on above: Order Comment: Speci men Type: BLOOD SPECIMENOrdering Facility: [facility] Address: [address] [place] [address] Result Comment: Prov ided therapeutic concentrations are based on the 2008 ESC Guidelines for the Diagnosis and Treatment of Acute and Chronic Heart Failure. Reference ranges and high/low indicator flags are provided as general guidelines only. The treating physician must determine appropriate target levels/dosing based on the specific clinical situation. Performed By: #### D IG ####[facility] [id number] [address] [place] HISTORY PHYSICALon HISTORY PHYSICAL HNO ID: [id number] Author: AMINA PETERSEN MD Service: Clinical Cardiology Author Type: Physician Type: H&P Filed: 08/26/2023 08:14 Note Text: [facility] CARDIOVASCULAR MEDICINE HISTORY AND PHYSICAL (Template ID [id number]) Asya Asencio [id number] PRIMARY SERVICE: Cardiovascular Medicine: Clinical Cardiology DATE OF ADMISSION: 08/24/2023 CHIEF COMPLAINT Asymptomatic, Mild dyspnea on exertion HISTORY OF PRESENT ILLNESS Asya Asencio is a 73 year old female with pmhx of -NICM -HF mildly reduced EF 45% -Moderately severe MR and TR -hx of Afib with RVR -HTN -Urethral stricture s/p dilation (04/2023) -S/p sigmoid colectomy with end-to-end anastomosis (1996) -Anxiety Presents after a visit with Dr. Harley on 08/23 where she was evaluated for her recently discovered non-ischemic cardiomyopathy with persistent Afib. She initially presented to [facility] Farshad Ng with symptoms of urinary outlet obstruction due to an ureteral stricture back in June of last year. In the ED she was found to be in asymptomatic Afib with RVR. She was admitted at that time for rate control. Her TTE on 07/03/23 showed LVEF 30% with bilateral atrial enlargement moderate to severe MR and TR. A left and right heart cath that same admission showed mild pulmonary hypertension and significant v wave on wedge pressure tracing and what was felt to be a non-obstructive plaque involving the ostial segment of her LAD. She otherwise did not have any contralateral disease to explain her LV impairment outside of her afib. After discharge she underwent a follow up KRYSTINA with Dr. Henriquez on 07/21/23 who found her EF to be 40%, with what he interpreted to be severe, central MR. She was started on medical management with digoxin, low dose carvedilol, DOAC with apixaban, and low dose losartan. She has also been using a wearable cardiac defibrillator which she states causes her a lot of discomfort. Was referred to Dr. Harley for further management. She also met with CTS surgeon Dr. Sorto on 08/23 and per outpatient note, she is high risk for cardiac surgery. Ultimately admitted for optimization and workup for mitral and tricuspid valve replacement. On interview, she is asymptomatic and denies any palpitations, syncope, chest pain, orthopnea, cough or edema. She states she had some mild dyspnea on exertion earlier in the day but could have been related to an anxiety attack. She does report intermittent difficulty with urination that has been ongoing since her urethral stricture dilation and also some constipation. Labs notable for increased creatinine 1.11 from baseline ~0.7. Nt probnp 3265 PAST MEDICAL HISTORY PAST MEDICAL HISTORY Diagnosis Date Anxiety state, unspecified GERD (gastroesophageal reflux disease) Heart murmur Hemorrhoids HTN (hypertension) Hypothyroid IBS (irritable bowel syndrome) Mitral regurgitation Proctocolitis Rectal pain Tricuspid regurgitation Urethral stricture PAST SURGICAL HISTORY Procedure Laterality Date EXC CYST/ABERRANT BREAST TISSUE OPEN / LESION PAST SURGICAL HISTORY OF 1995 tailbone surgery TOTAL ABDOMINAL HYSTERECT W/WO RMVL TUBE OVARY Hysterectomy, MIR UNLISTED PROCEDURE ABDOMEN PERITONEUM AND OMENTUM 1996 Sigmoid colectomy with primary end-to-end colorectal anastomosis. FAMILY HISTORY FAMILY HISTORY Problem Relation Age of Onset Diabetes Mother Heart disease Mother Heart disease Father SOCIAL HISTORY Social History Tobacco Use Smoking status: Former Smokeless tobacco: Never Tobacco comments: Quit 1996. social smoker mostly Vaping Use Vaping Use: Never used Substance Use Topics Alcohol use: Not Currently Drug use: No HOME MEDICATIONS apixaban (ELIQUIS) 5 mg tab(s)Take 5 mg by mouth.Disp: Rfl: aspirin, enteric coated (ASPIRIN, ENTERIC COATED) 81 mg EC tabletTake 81 mg by mouth.Disp: Rfl: atorvastatin (LIPITOR) 40 mg tabletTake 40 mg by mouth.Disp: Rfl: carvedilol (COREG) 3.125 mg tabletTake 3.125 mg by mouth.Disp: Rfl: digoxin (LANOXIN) 125 mcg (0.125 mg) tabletTake 125 mcg by mouth.Disp: Rfl: furosemide (LASIX) 40 mg tabletTake 40 mg by mouth.Disp: Rfl: losartan (COZAAR) 25 mg tabletTake 25 mg by mouth.Disp: Rfl: ATIVAN 0.5 MG TABTake one(1) tablet two(2) times daily. Disp: Rfl: 0 ondansetron orally disintegrating (ZOFRAN ODT) 4 mg disintegrating tabletDISSOLVE 1 TABLET ON THE TONGUE EVERY 8 HOURSDisp: Rfl: estradiol (ESTRACE) 0.01 % (0.1 mg/gram) vaginal creamUse 1 g vaginally.Disp: Rfl: LORazepam (ATIVAN) 0.5 mgTake 0.5 mg by mouth.Disp: Rfl: loperamide (IMODIUM) 2 mg cap(s)Take 2 capsules by mouth one time only for 1 dose. Take one hour after last bowel movementDisp: 2 capsuleRfl: 0 estradiol 0.01 % (0.1 mg/g) vaginal creamUse a pea sized drop on finger, once every other dayDisp: 1 TubeRfl: 11 tamsulosin 0.4 mg Gj50Eqep 1 capsule by mouth daily at bedtime.Disp: 30 capsuleRfl: 3 (Patient n (more content not included)... Normal [facility] URINALYSIS, DIPSTICK ONLYon 08-24-2023 Bilirubin Ql (U) Negative Normal Negative [facility] Comment on above: Order Comment: Speci men Type: URINE SPECIMENOrdering Facility: [facility] Address: [address] [place] [address] Performed By: #### U A ####[facility]CL[facility] [id number] [place] [address] [place] Clarity (Unsp spec) Cloudy Abnormal Clear [facility] Comment on above: Order Comment: Speci men Type: URINE SPECIMENOrdering Facility: [facility] Address: [address] [place] [address] Performed By: #### U A ####[facility]CL[facility] [id number] [place] [address] [place] Color (U) Yellow Normal Yellow [facility] Comment on above: Order Comment: Speci men Type: URINE SPECIMENOrdering Facility: [facility] Address: [address] [place] [address] Performed By: #### U A ####[facility] [id number] [place] [address] [place] Glucose Test strip (U) [Mass/Vol] Negative Normal Negative [facility] Comment on above: Order Comment: Speci men Type: URINE SPECIMENOrdering Facility: [facility] Address: [address] [place] [address] Performed By: #### U A ####[facility] [id number] [place] [address] [place] Hemoglobin Ql (U) Trace Abnormal Negative [facility] Comment on above: Order Comment: Speci men Type: URINE SPECIMENOrdering Facility: [facility] Address: [address] [place] [address] Performed By: #### U A ####[facility]CL[facility] [id number] [place] [address] [place] Ketones Ql (U) Trace Abnormal Negative [facility] Comment on above: Order Comment: Speci men Type: URINE SPECIMENOrdering Facility: [facility] Address: [address] [place] [address] Performed By: #### U A ####[facility] [id number] [place] [address] [place] Leukocyte esterase Test strip Ql (U) 1+ Abnormal Negative [facility] Comment on above: Order Comment: Speci men Type: URINE SPECIMENOrdering Facility: [facility] Address: [address] [place] [address] Performed By: #### U A ####[facility] [id number] [place] [address] [place] Nitrite Ql (U) Negative Normal Negative [facility] Comment on above: Order Comment: Speci men Type: URINE SPECIMENOrdering Facility: [facility] Address: [address] [place] [address] Performed By: #### U A ####[facility]CL[facility] [id number] [place] [address] [place] pH (U) 5.5 [pH] Normal <8.5 [facility] Comment on above: Order Comment: Speci men Type: URINE SPECIMENOrdering Facility: [facility] Address: [address] [place] [address] Performed By: #### U A ####[facility]IA [id number] [place] [address] [place] Protein (U) [Mass/Vol] 1+ Abnormal Negative Cl [facility] Comment on above: Order Comment: Speci men Type: URINE SPECIMENOrdering Facility: [facility] Address: [address] [place] [address] Performed By: #### U A ####[facility]IA [id number] [place] [address] [place] Specific gravity (U) [Rel density] 1.021 Normal 1.005-1.030 [facility] Comment on above: Order Comment: Speci men Type: URINE SPECIMENOrdering Facility: [facility] Address: [address] [place] [address] Performed By: #### U A ####[facility] [id number] [place] [address] [place] Urobilinogen Ql (U) 1.0 EU/dL Normal 0.2-1.0 EU/dL [facility] Comment on above: Order Comment: Speci men Type: URINE SPECIMENOrdering Facility: [facility] Address: [address] [place] [address] Performed By: #### U A ####[facility] LABIA [id number] [place] [address] [place] CBC panel Auto (Bld)on 08-23 Erythrocyte distribution width (RBC) [Ratio] 12.9 % Normal 11.5-15.0 [facility] Comment on above: Order Comment: Speci men Type: BLOOD SPECIMENOrdering Facility: [facility] Address: [address] [place] [address] Performed By: #### 5 8410-2 ####[facility] LABIA [id number] [place] [address] [place] Hematocrit (Bld) [Volume fraction] 43.4 % Normal 36.0-46.0 [facility] Comment on above: Order Comment: Speci men Type: BLOOD SPECIMENOrdering Facility: [facility] Address: [address] [place] [address] Performed By: #### 5 8410-2 ####[facility]IA [id number] [place] [address] [place] Hemoglobin (Bld) [Mass/Vol] 14.4 g/dL Normal 11.5-15.5 [facility] Comment on above: Order Comment: Speci men Type: BLOOD SPECIMENOrdering Facility: [facility] Address: [address] [place] [address] Performed By: #### 5 8410-2 ####[facility] LABIA [id number] [place] [address] [place] MCH (RBC) [Entitic mass] 30.3 pg Normal 26.0-34.0 [facility] Comment on above: Order Comment: Speci men Type: BLOOD SPECIMENOrdering Facility: [facility] Address: [address] [place] [address] Performed By: #### 5 8410-2 ####[facility]IA [id number] [place] [address] [place] MCHC (RBC) [Mass/Vol] 33.2 g/dL Normal 30.5-36.0 [facility] Comment on above: Order Comment: Speci men Type: BLOOD SPECIMENOrdering Facility: [facility] Address: [address] [place] [address] Performed By: #### 5 8410-2 ####[facility]IA [id number] [place] [address] [place] MCV (RBC) [Entitic vol] 91.4 fL Normal 80.0-100.0 [facility] Comment on above: Order Comment: Speci men Type: BLOOD SPECIMENOrdering Facility: [facility] Address: [address] [place] [address] Performed By: #### 5 8410-2 ####[facility]IA [id number] [place] [address] [place] Nucleated RBC (Bld) [#/Vol] 10*3/uL Normal <0.01 [facility] Comment on above: Order Comment: Speci men Type: BLOOD SPECIMENOrdering Facility: [facility] Address: [address] [place] [address] Performed By: #### 5 8410-2 ####[facility]IA [id number] [place] [address] [place] Platelet mean volume (Bld) [Entitic vol] 10.5 fL Normal 9.0-12.7 [facility] Comment on above: Order Comment: Speci men Type: BLOOD SPECIMENOrdering Facility: [facility] Address: [address] [place] [address] Performed By: #### 5 8410-2 ####[facility]IA [id number] [place] [address] [place] Platelets (Bld) [#/Vol] 215 10*3/uL Normal 150-400 [facility] Comment on above: Order Comment: Speci men Type: BLOOD SPECIMENOrdering Facility: [facility] Address: [place] [address] Performed By: #### 5 8410-2 ####[facility]CL[facility] [id number] [place] [address] [place] RBC (Bld) [#/Vol] 4.75 10*6/uL Normal 3.90-5.20 [facility] Comment on above: Order Comment: Speci men Type: BLOOD SPECIMENOrdering Facility: [facility] Address: [address] [place] [address] Performed By: #### 5 8410-2 ####[facility]CL[facility] [id number] [place] [address] [place] WBC (Bld) [#/Vol] 6.24 10*3/uL Normal 3.70-11.00 [facility] Comment on above: Order Comment: Speci men Type: BLOOD SPECIMENOrdering Facility: [facility] Address: [address] [place] [address] Performed By: #### 5 8410-2 ####[facility] [id number] [place] [address] [place] CNOVon 08-23-2023 [facility] ASYA ASENCIO I ([id number]) 1950 F Date Time Provider Department 08/23/23 3:20 PM MICHELINE SORTO [facility] During your visit today, we recorded the following information about you: Micheline Sorto MD 08/24/2023 8:19 AM Signed [facility] DEPARTMENT OF CARDIAC SURGERY OUTPATIENT VISIT PCP: Peggy Nazario MD [address] [place] [address] Referring Physician: Micheline Sorto [id number] [facility] [id number] Patient Type: New Visit to Determine Surgery: Yes HPI: Ms. Asya Asencio is a 73 year old female seen regarding candidacy for cardiac surgery. She is currently symptomatic and complains of dyspnea on exertion Comorbidities include PAST MEDICAL HISTORY Diagnosis Date Anxiety state, unspecified GERD (gastroesophageal reflux disease) Heart murmur Hemorrhoids HTN (hypertension) Hypothyroid IBS (irritable bowel syndrome) Mitral regurgitation Proctocolitis Rectal pain Tricuspid regurgitation Urethral stricture . I have personally reviewed and analyzed all records that pertain to the patient's prior course in addition to the following studies: cardiac catheterization, CT scan, and TTE. Last CT Result Conclusion CTA CHEST (GATED) W IVCON Exam End: 08/23/2023 7:47 AM (Final result) Impression: IMPRESSION: Dilated left ventricle, biatrial enlargement. Mitral valve is noncalcified. Normal caliber thoracic aorta. Yard Stocker: PSCB Transcribe Date/Time: Aug 23 2023 11:20A Dictated by : SARAH CARNEY MD This examination was interpreted and the report reviewed and electronically signed by: SARAH CARNEY MD on Aug 23 2023 12:14PM EST Last ECHO Result Conclusion ECHO Collected: 08/23/2023 2:15 PM (Edited Result - FINAL) Impression: CONCLUSIONS: - Exam indication: Valvular heart disease - The left ventricle is dilated. Left ventricular systolic function is mildly decreased. EF = 45 ? 5% (visual est.) Beat to beat variation in LV systolic function. - The right ventricle is normal in size. Right ventricular systolic function is normal. - The left atrial cavity is mildly dilated. - The right atrial cavity is dilated. - There is moderate (2+ - 3+) holosystolic mitral valve regurgitation. In certain views it appears closer to 3+ (A3c, clip 66 for instance). Multiple MR jets, PISA estimation is limited. Suboptimal PV flow waveform. MR is better seen and more prominent on outside KRYSTINA 07/21/23. - There is moderately severe (3+) tricuspid valve regurgitation. - Estimated right ventricular systolic pressure is 44 mmHg consistent with mild pulmonary hypertension. Estimated right atrial pressure is 8 mmHg based on IVC assessment. - The patient has not had a prior CC echocardiographic exam for comparison. * * * Final (Updated) * * * Impression: Moderately severe MR and TR Chronic systolic heart failure Plan: Discussed with patient and cardiology, Dr. Harley. Not on GDMT, to be admitted for optimization per cardiology. Would obtain structural TMVr/TTVr input Consider DCCV Based on my evaluation she is a high risk for cardiac surgery. These findings will be communicated back to the requesting physician via electronic medical record Micheline Sorto MD Referring Provider: MICHELINE SORTO [[id number]] Allergies As of Date: 08/23/2023 Noted Allergy Reaction ASPIRIN 05/14/2010 14 - Other: See Comments Comments: Patient states causes Bruising. CEPHALEXIN 01/30/2023 16 - Unknown DEMORAL (MEPERIDINE) 05/14/2010 14 - Other: See Comments Comments: Patient does not know if she is allergic but know she is not suppose to take it. LATEX 09/26/2012 2 - Rash 4 - Hives MORPHINE 04/12/2023 16 - Unknown Comments: Other Reaction(s): Unknown cause SULFA (SULFONAMIDE ANTIBIOTICS) 07/25/2023 5 - Intolerance Date Reviewed: 08/23/2023 Reviewed by: Felicita Aguilera RN - Fully Assessed Visit Diagnoses:Non-rheumat ic mitral regurgitation [I34.0] Nonrheumatic tricuspid valve regurgitation [I36.1] Disorder of artery or arteriole (HCC) [I77.9] Mitral valve disorder [I05.9] Tricuspid valve disorders, non-rheumatic [I36.9] Order(s):CARDIOTHORAC IC PREOP EVALUATION [] Order #: [id number]: 1 Prescriptions as of 08/24/2023 - apixaban (ELIQUIS) 5 mg tab(s) Take 5 mg by mouth. - aspirin, enteric coated (ASPIRIN, ENTERIC COATED) 81 mg EC tablet Take 81 mg by mouth. - atorvastatin (LIPITOR) 40 mg tablet Take 40 mg by mouth. - carvedilol (COREG) 3.125 mg tablet Take 3.125 mg by mouth. - digoxin (LANOXIN) 125 mcg (0.125 mg) tablet Take 125 mcg by mouth. - furosemide (LASIX) 40 mg tablet Take 40 mg by mouth. - losartan (COZAAR) 25 mg tablet Take 25 mg by mouth. - ondansetron orally disintegrat (more content not included)... Normal [facility] Office Visit ([facility] ) ASYA ASENCIO I ([id number]) 1950 F Date Time Provider Department 08/23/23 7:45 AM ALEA HARLEY [facility] During your visit today, we recorded the following information about you: Pulse Blood pressure Weight Height 47/minute 107/58 52.2 kg 1.651 m Alea Harley MD 08/23/2023 12:58 PM [facility] Department of Cardiovascular Medicine SECTION OF CLINICAL CARDIOLOGY OUTPATIENT VISIT DATE August 23, 2023 OUTPATIENT VISIT TYPE NEW PRIMARY CARE PHYSICIAN: Peggy Nazario MD [address] [place] [address] REFERRING PHYSICIAN: Micheline Sorto [address] [place] [id number] CHIEF COMPLAINT: Mitral regurgitation. HISTORY OF PRESENT ILLNESS: Ms. Asencio is a 73 year old female who presents today at the request of Dr. Micheline Sorto for a preoperative evaluation and to determine best management for relatively recently discovered diagnoses of NICM, what is now persistent atrial fibrillation and mitral regurgitation. The discovery of these findings dates to this past mid June when she presented with difficulty in emptying her bladder. When seen in the [facility] ER, she was found to be in atrial fibrillation and, from what she describes, with rapid ventricular response. She had been having difficulty with bladder outlet issues, ie. urethral stricture since the summer. It was dilated in mid April but she never felt well since then with continued emptying problems. But when further questioned she was unaware of a rapid pulse, being short of breath or developing either orthopnea or edema. Nonetheless when found to be in AF in June she was admitted for further management after initiating rate control Rx. She was hospitalized three or four days and her workup had included a TTE on 07/03/2023 which found her LVEF to be on the order of 30%, dilated and in the setting of LAE, she was also demonstrated to have moderate to severe MR. A left and right heart catheterization that same demonstrated her to have mild PHT with a significant v wave on PCW, and what is felt to be non obstructive plaquing involving the ostial segment of her LAD. Otherwise she did not have any contralateral disease to explain her LV impairment outside of her afib. After discharge she underwent a follow up KRYSTINA with Dr. Henriquez who then found her EF to be 40%, with what he interpreted to be severe, central MR - although ERO calculation was more conservative at 0.26 cm2 without PV flow reversal. On medical management that includes dig, low dose carvedilol, DOAC with apixaban, and low dose losartan she feels better. She is being referred by her private shirt cleaner, Dr.D. Henriquez for consideration of MVr. As she states, prior to all this she was very active - participating in aerobic dancing and while she has improved considerably on medical management I want no pills and would like to pursue surgery. In the meantime, given the severity of observed LV impairment initially observed in June, she has been prescribed a wearable cardiac defibrillator. She is not aware of any significant ventricular ectopy, nor is that evident in her records. She denies any spell of palpitations or being syncopal as well as denying, any resultant symptoms such as chest pain, orthopnea, cough, edema, or PND. NURSING INTAKE: Ms. Asencio is a 73 year old female from [place], [place] here today for cardiovascular evaluation related to severe mitral and tricuspid regurgitation. She is currently consulted with Dr. Sorto in cardiac surgery for potential surgical intervention. Asya has a significant medical history of GERD, heart murmur, HTN, IBS, tricuspid regurgitation, hypothyroid, anxiety, mitral valve regurgitation. She reports the following symptoms: aching in her chest. PAST MEDICAL HISTORY Diagnosis Date Anxiety state, unspecified GERD (gastroesophageal reflux disease) Heart murmur Hemorrhoids HTN (hypertension) Hypothyroid IBS (irritable bowel syndrome) Mitral regurgitation Proctocolitis Rectal pain Tricuspid regurgitation Urethral stricture PAST SURGICAL HISTORY Procedure Laterality Date EXC CYST/ABERRANT BREAST TISSUE OPEN 1/> LESION PAST SURGICAL HISTORY OF 1995 tailbone surgery TOTAL ABDOMINAL HYSTERECT W/WO RMVL TUBE OVARY Hysterectomy, MIR UNLISTED PROCEDURE ABDOMEN PERITONEUM AND OMENTUM 1996 Sigmoid colectomy with primary end-to-end colorectal anastomosis. SOCIAL HISTORY Social History Tobacco Use Smoking status: Former Smokeless tobacco: Never Tobacco comments: Quit 1996. social smoker mostly Substance Use Topics Alcohol use: Yes Comment: occas Drug use: No FAMILY HISTORY Problem Relation Age of Onset Diabetes Mother Heart disease Mother Heart disease Father (more content not included)... Normal [facility] CREATININE BLDon 08-23-2023 Creatinine [Mass/Vol] 0.97 mg/dL High 0.58-0.96 [facility] Comment on above: Order Comment: Speci men Type: BLOOD SPECIMEN [facility] Facility[facility] Address: [address] [place] [address] Performed By: #### 2 4323-8, #### [facility] CLIA [id number] [facility] [place] [address] [place] Creatinine and Glomerular filtration rate.predicted panel (S/P/Bld) 61 mL/min/1.73m??? Normal >=60 [facility] Comment on above: Order Comment: Speci mariam Type: BLOOD SPECIMEN [facility]ing Facility[facility] Address: [address] [place] [address] Result Comment: Shelley mated Glomerular Filtration Rate (eGFR) is calculated using the 2020 CKD-EPI creatinine equation. This equation utilizes serum creatinine, sex, and age as parameters. The creatinine assay has traceable calibration to isotope dilution-mass spectrometry. Refer to KDIGO guidelines for clinical interpretation. In patients with unstable renal function, e.g. those with acute kidney injury, the eGFR may not accurately reflect actual GFR. Performed By: #### 2 4323-8, #### [facility] CLIA [id number] [address] [place] [address] [place] CTA CHEST (GATED) W IVCONon 08-23-2023 CTA CHEST (GATED) W IVCON * * *Final Report* * * DATE OF EXAM: Aug 23 2023 7:47AM JQC 0125 - CTA CHEST (GATED) W IVCON / PROCEDURE REASON: multiple diagnoses * * * * Physician Interpretation * * * * CTA Aorta chest Direct Image Comparison: None HISTORY: 73 years old Female with h/o severe mitral regurgitation status and compare limits with no dysfunction. Evaluation for further treatment options. There is request to define thoracic and aortic anatomy TECHNIQUE: SCANNER: Multi-detector scanner PROTOCOL: Prospectively triggered helical high-pitch acquisitions ( triggered Flash-mode ) was performed following the intravenous administration of contrast material. Scan Range: thoracic inlet to the diaphragm CT Dose-Length Product (DLP): 128 mGy*cm CT Dose Reduction Employed: Automated exposure control (AEC) CONTRAST: IV administration of 80 ml Omnipaque 350 Scan acquisition: uncomplicated Macro Version: MQ:CCTW_3 For optimization of anatomic evaluation, advanced 3-D off-line postprocessing was performed on a dedicated workstation by the interpreting physician. STUDY LIMITATIONS: None.. RESULT: LINES, TUBES and DEVICES: External defibrillator vest CHEST: Chest wall anatomy: unremarkable. LUNGS: unremarkable. MEDIASTINUM: unremarkable. PERICARDIUM: unremarkable CENTRAL PULMONARY ARTERY: normal dimensions. Assessment is limited due to limited contrast enhancement. CARDIAC CHAMBERS: LEFT VENTRICLE: dilated. Right ventricle: prominent Left atrium: severely dilated. HA: normal Right atrium: severely dilated CENTRAL VENOUS and PULMONARY VENOUS RETURN: normal. Coronary Sinus: normal size MITRAL and TRICUSPID VALVE: assessment is limited in the current study - no leaflet calcification. No annular calcification PULMONIC VALVE: assessment is limited in the current study. No leaflet calcification CORONARY ANATOMY: normal origin of the coronary arteries. Mild calcified atherosclerotic changes of the coronary arteries. However, the current study is not optimized for coronary assessment. AORTIC VALVE: appears trileaflet. No leaflet calcification. AORTA: Size: Normal size thoracic aorta. Pathology: No acute aortic pathology. Intervention: None Complications: n/a STJ: maintained Wall Changes: Mild predominantly calcified wall changes descending thoracic aorta. Arch Branch Vessels: Patent, normal size proximal segments of the arch branch vessels. AORTIC DIMENSIONS: AORTIC ROOT: 3.5 cm measured luzyp-ar-qyvlr Area cm2 mid ASCENDING THORACIC AORTA: 2.9 cm Area cm2 mid DESCENDING THORACIC AORTA: 2.2 cm limited upper ABDOMEN: unremarkable BONES: Unremarkable Manufacturing Cost Estimator (topogram) images: No additional findings. IMPRESSION: Dilated left ventricle, biatrial enlargement. Mitral valve is noncalcified. Normal caliber thoracic aorta. Yard Stocker: LILIANA Transcribe Date/Time: Aug 23 2023 11:20A Dictated by : SARAH CARNEY MD This examination was interpreted and the report reviewed and electronically signed by: SARAH CARNEY MD on Aug 23 2023 12:14PM EST [id number] N Normal [facility] Comprehensive metabolic 2000 panelon 08-23-2023 Albumin [Mass/Vol] 4.4 g/dL Normal 3.9-4.9 [facility] Comment on above: Order Comment: Speci men Type: BLOOD SPECIMENOrdering Facility: [facility] Address: [address] [place] [address] Performed By: #### 3 3762-6, ####[facility] [id number] [place] [address] [place] ALP [Catalytic activity/Vol] 66 U/L Normal 34-123 [facility] Comment on above: Order Comment: Speci men Type: BLOOD SPECIMENOrdering Facility: [facility] Address: [address] [place] [address] Performed By: #### 3 3762-6, ####[facility] [id number] [place] [address] [place] ALT [Catalytic activity/Vol] 40 U/L High 7-38 [facility] Comment on above: Order Comment: Speci men Type: BLOOD SPECIMENOrdering Facility: [facility] Address: [address] [place] [address] Performed By: #### 3 3762-6, ####[facility] [id number] [place] [address] [place] Anion gap [Moles/Vol] 9 mmol/L Normal 9-18 [facility] Comment on above: Order Comment: Speci men Type: BLOOD SPECIMENOrdering Facility: [facility] Address: [address] [place] [address] Performed By: #### 3 3762-6, ####[facility] [id number] [place] [address] [place] AST [Catalytic activity/Vol] 31 U/L Normal 13-35 [facility] Comment on above: Order Comment: Speci men Type: BLOOD SPECIMENOrdering Facility: [facility] Address: [address] [place] [address] Performed By: #### 3 3762-6, ####[facility] [id number] [place] [address] [place] Bilirubin [Mass/Vol] 0.8 mg/dL Normal 0.2-1.3 [facility] Comment on above: Order Comment: Speci men Type: BLOOD SPECIMENOrdering Facility: [facility] Address: [address] [place] [address] Performed By: #### 3 3762-6, ####[facility] [id number] [place] [address] [place] Calcium [Mass/Vol] 9.8 mg/dL Normal 8.5-10.2 [facility] Comment on above: Order Comment: Speci men Type: BLOOD SPECIMENOrdering Facility: [facility] Address: [address] [place] [address] Performed By: #### 3 3762-6, ####[facility] [id number] [place] [address] [place] Chloride [Moles/Vol] 98 mmol/L Normal 97-105 [facility] Comment on above: Order Comment: Speci men Type: BLOOD SPECIMENOrdering Facility: [facility] Address: [address] [place] [address] Performed By: #### 3 3762-6, ####[facility] [id number] [place] [address] [place] CO2 [Moles/Vol] 32 mmol/L High 22-30 [facility] Comment on above: Order Comment: Speci men Type: BLOOD SPECIMENOrdering Facility: [facility] Address: [address] [place] [address] Performed By: #### 3 376-6, ####[facility] [id number] [place] [address] [place] Creatinine [Mass/Vol] 0.98 mg/dL High 0.58-0.96 [facility] Comment on above: Order Comment: Speci men Type: BLOOD SPECIMENOrdering Facility: [facility] Address: [address] [place] [address] Performed By: #### 3 376-6, ####[facility] [id number] [place] [address] [place] Creatinine and Glomerular filtration rate.predicted panel (S/P/Bld) 60 mL/min/1.73m??? Normal >=60 [facility] Comment on above: Order Comment: Speci men Type: BLOOD SPECIMENOrdering Facility: [facility] Address: [address] [place] [address] Result Comment: Shelley mated Glomerular Filtration Rate (eGFR) is calculated using the 2020 CKD-EPI creatinine equation. This equation utilizes serum creatinine, sex, and age as parameters. The creatinine assay has traceable calibration to isotope dilution-mass spectrometry. Refer to KDIGO guidelines for clinical interpretation. In patients with unstable renal function, e.g. those with acute kidney injury, the eGFR may not accurately reflect actual GFR. Performed By: #### 3 3762-6, ####[facility]IA [id number] [place] [address] [place] Glucose [Mass/Vol] 127 mg/dL High 74-99 [facility] Comment on above: Order Comment: Speci men Type: BLOOD SPECIMENOrdering Facility: [facility] Address: [address] [place] [address] Result Comment: The [place] Diabetes Association (ADA) provides guidance for cutoff values for fasting glucose and random glucose. The ADA defines fasting as no caloric intake for at least 8 hours. Fasting plasma glucose results between 100 to 125 mg/dL indicate increased risk for diabetes (prediabetes). Fasting plasma glucose results greater than or equal to 126 mg/dL meet the criteria for diagnosis of diabetes. In the absence of unequivocal hyperglycemia, results should be confirmed by repeat testing. In a patient with classic symptoms of hyperglycemia or hyperglycemic crisis, random plasma glucose results greater than or equal to 200 mg/dL meet the criteria for diagnosis of diabetes. Reference: Standards of Medical Care in Diabetes 2016, [place] [employer] Association. Diabetes Care. 2016.39(Suppl 1). Performed By: #### 3 3762-6, ####[facility] [id number] [place] [address] [place] Potassium [Moles/Vol] 4.1 mmol/L Normal 3.7-5.1 [facility] Comment on above: Order Comment: Nichole becerra Type: BLOOD SPECIMENOrdering Facility: [facility] Address: [address] [place] [address] Performed By: #### 3 3762-6, ####[facility] [id number] [place] [address] [place] Protein [Mass/Vol] 6.8 g/dL Normal 6.3-8.0 [facility] Comment on above: Order Comment: Speci men Type: BLOOD SPECIMENOrdering Facility: [facility] Address: [address] [place] [address] Performed By: #### 3 3762-6, ####[facility] [id number] [place] [address] [place] Sodium [Moles/Vol] 139 mmol/L Normal 136-144 [facility] Comment on above: Order Comment: Speci men Type: BLOOD SPECIMENOrdering Facility: [facility] Address: [address] [place] [id number] Performed By: #### 3 3762-6, 12084-9 ####[facility] [id number] [place] [id number] [place] Urea nitrogen [Mass/Vol] 17 mg/dL Normal 7-21 [facility] Comment on above: Order Comment: Speci men Type: BLOOD SPECIMENOrdering Facility: [facility] Address: [address] [place] [id number] Performed By: #### 3 3762-6, 58965-9 ####[facility] [id number] [place] [id number] [place] [id number] 08-23-2023 ECG01 Ventricular Rate : 8 5 BPM Atrial Rate : 250 BPM QRS Duration : 82 ms Q-T Interval : 368 ms QTC Calculation(Bazett) : 437 ms Calculated R [place] : 86 degrees Calculated T [place] : -51 degrees ATRIAL FIBRILLATION NONSPECIFIC ST AND T WAVE ABNORMALITY , PROBABLY DIGITALIS EFFECT ABNORMAL ECG Confirmed by JOSSE BURKS MD ([id number]) on 09/03/2023 4:14:55 PM NAME : ASYA ASENCIO PID : [id number] : 1950 Gender : Female Race : ORD : Procedure Date : Aug 23 2023 09:29:39 Edit Date : Sep 03 2023 16:14:57 Diagnosis: ATRIAL FIBRILLATION NONSPECIFIC ST AND T WAVE ABNORMALITY , PROBABLY DIGITALIS EFFECT ABNORMAL ECG Confirmed by JOSSE BURKS MD ([id number]) on 09/03/2023 4:14:55 PM Test Reason : Location : 567 : [id number] Overread By : JOSSE BURKS MD Edited By : JOSSE BURKS MD Referred By : , Acquired by : [id number], Normal [facility] ECHOon 08-23-2023 Echocardiography Echocardiography Report: Transthoracic Echo [facility] J35 Date of service: 08/23/2023 2:15:32 PM [employer]OP MANAGER Ordering physician: MICHELINE SORTO Indication: Valvular heart disease Technologist: Dede Watts [facility] Interpreting physician: To Brewer MD PATIENT: Name: MRS. ASYA ASENCIO : 1950 Age: 73 years Gender: F History of valvular heart disease, cardiomyopathy and arrhythmia. Primary rhythm: atrial fib. Height: 165.10 cm BSA: 1.55 m Weight: 52.16 kg BMI: 19.1 kg/m Heart rate 97 bpm Blood pressure 170/65 mmHg Color Doppler was utilized to interrogate the cardiac valves assessed and spectral Doppler was utilized to determine the flow velocities and pressure gradients reported in this exam. MEASUREMENTS: Value Indexed Normal Max aortic dimension 2.8 cm Ao < 3.8 Left atrial volume 57 ml (4ch A-L) 37 ml/m [place] <= 34 LV ID (diastole) 5.4 cm (2D) 3.48 cm/m LV ID (systole) 4.3 cm (2D) 2.75 cm/m IVS, leaflet tips 1.0 cm (2D) Posterior wall thickness 0.9 cm (2D) Left ventricular mass 194 g (2D) 126 g/m Ejection Fraction 45 % (visual est.) EF > 54 FINDINGS: LEFT VENTRICLE The left ventricle is dilated. Left ventricular systolic function is mildly decreased. Left ventricular diastolic function was not evaluated due to an arrhythmia. Wall Motion: The basal inferoseptal segment is akinetic. The anterolateral wall, posterior wall, basal anteroseptal segment, and basal inferior segment are severely hypokinetic. The entire anterior wall, mid and distal anterior septum, entire apex, mid and distal inferior wall, and mid inferoseptal segment are mildly hypokinetic. RIGHT VENTRICLE The right ventricle is normal in size. Right ventricular systolic function is normal. Tricuspid annular displacement is 2.3 cm. Estimated right ventricular systolic pressure is 44 mmHg consistent with mild pulmonary hypertension. Estimated right atrial pressure is 8 mmHg based on IVC assessment. LEFT ATRIUM The left atrial cavity is mildly dilated. RIGHT ATRIUM The right atrial cavity is dilated. Inferior Vena Cava: The inferior vena cava appears normal measuring 2.0 cm. The vessel decreases less than 50 percent with inspiration. MITRAL VALVE There is moderate (2+ - 3+) holosystolic mitral valve regurgitation. There is mild thickening. TRICUSPID VALVE There is moderately severe (3+) tricuspid valve regurgitation. There is no thickening. AORTIC VALVE There is trace aortic valve regurgitation. Tricuspid aortic valve. There is mild thickening. PULMONIC VALVE The pulmonic valve cusps are structurally normal. There is trace (trace - 1+) pulmonic valve regurgitation. AORTA The visualized aorta is normal in size. Measurements - Mid ascending aorta 2.8 cm. PULMONARY ARTERIES The pulmonary arteries are normal. INTERATRIAL SEPTUM There is no evidence of intracardiac shunting as detected by Doppler. INTERVENTRICULAR SEPTUM There is no flow through the interventricular septum as detected by Doppler. PERICARDIUM There is a trivial circumferential pericardial effusion. There is an epicardial fat pad. CONCLUSIONS: - Exam indication: Valvular heart disease - The left ventricle is dilated. Left ventricular systolic function is mildly decreased. EF = 45 5% (visual est.) Beat to beat variation in LV systolic function. - The right ventricle is normal in size. Right ventricular systolic function is normal. - The left atrial cavity is mildly dilated. - The right atrial cavity is dilated. - There is moderate (2+ - 3+) holosystolic mitral valve regurgitation. In certain views it appears closer to 3+ (A3c, clip 66 for instance). Multiple MR jets, PISA estimation is limited. Suboptimal PV flow waveform. MR is better seen and more prominent on outside KRYSTINA 07/21/23. - There is moderately severe (3+) tricuspid valve regurgitation. - Estimated right ventricular systolic pressure is 44 mmHg consistent with mild pulmonary hypertension. Estimated right atrial pressure is 8 mmHg based on IVC assessment. - The patient has not had a prior CC echocardiographic exam for comparison. * * * Final (Updated) * * * CC [employer] Medical Image : [id number] micsSISUID Normal [facility] NT-proBNP SerPl-ncon 08-23 Natriuretic peptide.B prohormone N-Terminal [Mass/Vol] 3265 pg/mL High <450 [facility] Comment on above: Order Comment: Speci men Type: BLOOD SPECIMENOrdering Facility: [facility] Address: [address] [place], [place] [address] [place] [address] Performed By: #### 3 3762-6, 18633-2 ####[facility] [id number] DULCE SALDANA [id number] [place] [address] [place] RIGHT HEART CATH REPORTon RIGHT HEART CATH REPORT Name: MRS. ASYA ASENCIO Age: 73 years : Procedure Date: 08/23/2023 Procedure Start Time: 08/23/2023 12:09:58 PM Procedure Stop Time: 08/23/2023 12:43:39 PM Physcian Name Case Duties Gianni Villalba D.O. Diagnostic Attending Physician Yasir Coronado M.D. Aviation Technical Systems Specialist INDICATIONS FOR PROCEDURE: Heart failure PROCEDURE: PROCEDURAL DETAILS: Informed Consent: The risks, benefits and anticipated outcomes of the procedure including radiation skin injury, the risks and benefits of the alternatives to the procedure, and the roles and tasks of the personnel to be involved, were discussed with the patient, and the patient consents to the procedure and agrees to proceed. Audible time out was performed prior to the beginning of the procedure. Ultrasound imaging was used to evaluate potential venous access sites, and the below mentioned vein was shown to be patent and suitable. Real-time ultrasound guidance was utilized to confirm the vascular entry of the needle. Pre-Placement of Device: Written informed consent was obtained before entering the procedure area. The patient was brought to the cardiac catheterization laboratory in a fasting, non sedated state. A time out procedure was performed with the entire cardiac catheterization laboratory staff, confirming the patient's name, date of , type of procedure, indication for the procedure and site of procedure. The right groin was sterilely prepped and draped. 2% Lidocaine was used to infiltrate the right groin. An 6F sheath was placed into the Brachial Vein using modified Seldinger technique. The sheath was then upsized to a 12 F sheath. Sheath was aspired and flushed in usual fashion. A 7F balloon wedge pressure catheter was prepped, flushed, tested, and introduced into the Brachial Vein. The balloon wedge catheter was advanced to RA where pressures were obtained. Balloon inflated and the remaining pressure measurements were acquired throughout the right heart. The cardiac output was measured by modified [place] equation. Placement of Device: A selective angiogram of an inferior and lateral branch of the left pulmonary artery was performed. 10cc of 50/50 visipaque contrast was delivered by hand injection after the catheter was advanced into proximal LPA. Imaging was obtained in AP 0 and LIBERIAN 45 degrees. After examining qualitatively (QCA) and calculating vessel diameter, the optimal sensor placement was determined. Roadmap images were placed for reference. A 0.018 inch steel core (Leevia) wire was inserted and place distal to the target sensor location. The balloon wedge pressure catheter was removed. The CardioMEMS delivery catheter was removed from the sterile packaging and flushed in its original housing. The catheter was pre soaked and agitated according to the senior systems engineer's instructions to activate the hydrophilic coating. The delivery catheter was placed over the wire carefully advancing it through the hub of the introducer sheath. The catheter was then advanced under fluoroscopic guidance to the desired implant location. After careful assessment, the tether mechanism was removed and the sensor was successfully released from the catheter. The delivery catheter was slowly withdrawn without disruption of the sensor. The steel core wire was then pulled back to the main PA. Post Placement of Device: The balloon wedge pressure catheter was replaced over the wire proximal to the CardioMEMS sensor into the RPA. The wire was removed and pulmonary artery pressures were re measured. The CardioMEMS sensor was calibrated to the mPAP of the wedge pressure catheter. The values were exact. Baseline readings with the CardioMEMS HF Sensor were performed. The balloon wedge pressure catheter was removed. The sheath was removed and manual presure was held. The patient tolerated the procedure well without complications. HEMODYNAMICS CONDITIONS: General: Mean 4 RV Systolic 29 RVEDP 4 PA Systolic 32 Diastolic 11 Mean 17 V Wave 16 Mean 8 Hemodynamic Pressures: + +----- + ---+---+----+ Condition Name Site S/A D/V M/ED + +----- + ---+---+----+ Rest Right Atrium 5 6 4 + +----- + ---+---+----+ Rest Right Ventricle 29 0 4 + +----- + ---+---+----+ Rest Main Pulmonary Artery 32 11 17 + +----- + ---+---+----+ Rest Pulmonary Capillary Wedge 9 14 9 + +----- + ---+---+----+ Additional Comments_ Physician Review of hemodynamic waveforms: - RA mean 4, RV 29/4, PA 32/11 (17), PCWP 8 with V waves to 16mmHg, TPG 9, MVO2 62%, SaO2 95%, CO indio 3 l/min, CI [place] 1.9 L/min/m2. COMPLICATIONS: None FOLLOW-UP: As per prototol. Physician Presence Attestation Conscious Sedation Summary: Moderate sedation consisting of continuous ECG, p (more content not included)... Normal [facility] US CAROTID ARTERIES [facility] 08-23-2023 US CAROTID ARTERIES [facility] Non-Invasive Vascular Laboratory [facility] J35 Carotid Duplex Bilateral/Complete Date of service/time: 08/23/2023 2:46:04 PM Name: MRS. ASYA ASENCIO Date of : 1950 Age: 73 years Gender: F Clinical Indication Pre op for cardiac surgery. TECHNIQUE -------- A carotid duplex ultrasound examination was performed, including grayscale imaging and color Doppler and spectral Doppler examination of the below mentioned arteries. FINDINGS -------- RIGHT SIDE Common carotid artery: Origin: PSV: 128 cm/s. EDV: 16 cm/s. Proximal: PSV: 91 cm/s. EDV: 13 cm/s. Mid: PSV: 80 cm/s. EDV: 18 cm/s. Distal: PSV: 66 cm/s. EDV: 17 cm/s. Internal carotid artery: Origin: PSV: 89 cm/s. EDV: 9 cm/s. Proximal: PSV: 93 cm/s. EDV: 24 cm/s. Mid: PSV: 162 cm/s. EDV: 31 cm/s. Distal: PSV: 158 cm/s. EDV: 42 cm/s. Mild heterogeneous plaque at origin. ICA/CCA Ratio: 2.4 External carotid artery: PSV: 97 cm/s. EDV: 0 cm/s. Mild heterogeneous plaque at origin. Subclavian artery: PSV: 181 cm/s. EDV: 0 cm/s. Mild heterogeneous plaque at origin. Innominate artery: PSV: 113 cm/s. EDV: 13 cm/s. Mild heterogeneous plaque at distal. Vertebral artery: PSV: 65 cm/s. EDV: 9 cm/s. LEFT SIDE Common carotid artery: Proximal: PSV: 98 cm/s. EDV: 25 cm/s. Mid: PSV: 110 cm/s. EDV: 13 cm/s. Distal: PSV: 107 cm/s. EDV: 20 cm/s. Mild heterogeneous plaque at distal. Internal carotid artery: Origin: PSV: 74 cm/s. EDV: 10 cm/s. Proximal: PSV: 143 cm/s. EDV: 46 cm/s. Mid: PSV: 101 cm/s. EDV: 37 cm/s. Distal: PSV: 142 cm/s. EDV: 49 cm/s. Mild heterogeneous plaque at origin. ICA/CCA Ratio: 1.3 External carotid artery: PSV: 124 cm/s. EDV: 11 cm/s. Subclavian artery: Proximal: PSV: 231 cm/s. EDV: 0 cm/s. Vertebral artery: PSV: 65 cm/s. EDV: 17 cm/s. IMPRESSION Irregular cardiac rhythm noted. RIGHT SIDE Internal carotid artery origin: 20-39% stenosis. Elevated velocities without significant turbulence is noted at mid to distal where no plaque is visualized. Findings may suggest fibromuscular dysplasia; may wish alternative means of evaluation if clinically indicated. Vertebral artery: Patent and antegrade flow noted. Innominate artery: Plaque visualized without evidence of hemodynamically significant stenosis. Subclavian artery: Plaque visualized without evidence of hemodynamically significant stenosis. LEFT SIDE Common carotid artery: Plaque visualized without evidence of hemodynamically significant stenosis. Internal carotid artery origin: 20-39% stenosis. Elevated velocities without significant turbulence is noted at mid to distal where no plaque is visualized. Findings may suggest fibromuscular dysplasia; may wish alternative means of evaluation if clinically indicated. Vertebral artery: Patent and antegrade flow noted. Technologist: Romana Newsome RVT Ordering physician: MICHELINE SORTO Interpreting physician: Eleonora Moffett MD, ROSIO Final CC [employer] Image : [id number] sSISUID See Link below for Image Normal [facility] Samia 08-22-2023 NATHALIE Telephone (HOMER) ASYA ASENCIO I ([id number]) 1950 F Date Time Provider Department 08/22/23 GIANNI VILLALBA During your visit today, we recorded the following information about you: Patrica Griffiths, ROCÍO 08/22/2023 1:31 PM Signed CARDIOVASCULAR LAB INSTRUCTIONS: Readiness to Learn: Cognitive Ability: Alert and oriented Motivation To Learn: Interested Family/Significant Other Support: Unable to assess - Family not present Instruction Provided To: Patient Patient Learns Best By: Verbal Instruction Factors Affecting Learning: None Physical Limitations Affecting Learning: None Learning Response: Procedure: Right Heart Diagnostic Pre procedure education topics: Arrival time/NPO Status/Medications/Tr sindy Instructions/Restrict ions Patient/Family Response Evaluation: Verbalizes understanding Follow Up Plan and Medication: As directed by physician Instruction/Supplemen naif Material Given: Cardiac catheterization instructions, procedure information, hospital information, hotel information. Instructed By Myrtle Griffiths, RN, RN. In Department of CARDIOLOGY. Allergies As of Date: 08/22/2023 Noted Allergy Reaction ASPIRIN 05/14/2010 14 - Other: See Comments Comments: Patient states causes Bruising. CEPHALEXIN 01/30/2023 16 - Unknown DEMORAL (MEPERIDINE) 05/14/2010 14 - Other: See Comments Comments: Patient does not know if she is allergic but know she is not suppose to take it. LATEX 09/26/2012 2 - Rash 4 - Hives MORPHINE 04/12/2023 16 - Unknown Comments: Other Reaction(s): Unknown cause SULFA (SULFONAMIDE ANTIBIOTICS) 07/25/2023 5 - Intolerance Date Reviewed: 10/24/2017 Reviewed by: Eb Goss (Email Marketer), MICROFILM CAMERA OPERATOR - Fully Assessed Reason for Visit: Patient Education [91] Prescriptions as of 08/22/2023 - apixaban (ELIQUIS) 5 mg tab(s) Take 5 mg by mouth. - aspirin, enteric coated (ASPIRIN, ENTERIC COATED) 81 mg EC tablet Take 81 mg by mouth. - atorvastatin (LIPITOR) 40 mg tablet Take 40 mg by mouth. - carvedilol (COREG) 3.125 mg tablet Take 3.125 mg by mouth. - digoxin (LANOXIN) 125 mcg (0.125 mg) tablet Take 125 mcg by mouth. - furosemide (LASIX) 40 mg tablet Take 40 mg by mouth. - losartan (COZAAR) 25 mg tablet Take 25 mg by mouth. - ondansetron orally disintegrating (ZOFRAN ODT) 4 mg disintegrating tablet DISSOLVE 1 TABLET ON THE TONGUE EVERY 8 HOURS - estradiol (ESTRACE) 0.01 % (0.1 mg/gram) vaginal cream Use 1 g vaginally. - LORazepam (ATIVAN) 0.5 mg Take 0.5 mg by mouth. - loperamide (IMODIUM) 2 mg cap(s) Take 2 capsules by mouth one time only for 1 dose. Take one hour after last bowel movement - estradiol 0.01 % (0.1 mg/g) vaginal cream Use a pea sized drop on finger, once every other day - tamsulosin 0.4 mg Cp24 Take 1 capsule by mouth daily at bedtime. - ATIVAN 0.5 MG TAB Take one(1) tablet two(2) times daily. Problem List As Of Date 08/22/2023 Noted Resolved INTESTINAL OBSTRUCT NOS [K56.609] 03/13/2009 Incomplete bladder emptying [R33.9] 09/26/2012 Non-rheumatic mitral regurgitation [I34.0] 07/25/2023 Nonrheumatic tricuspid valve regurgitation [I36*07/25/2023 Encounter Status:Closed by PATRICA [facility]FFITHS [facility] (bioeng[facility] ASYA ASENCIO I ([id number]) 1950 F Date Time Provider Department 08/16/23 GIANNI ENCINAS During your visit today, we recorded the following information about you: Maryan Bhardwaj 08/16/2023 12:56 PM Signed Study TItle: Risk Assessment of Stroke Using Non-Invasive Ultrasonic Backscatter from Carotid Plaque (RUNUP) IRB#: [id number] PI: Ruba Villanueva, PhD Phone#: [phone] COORDINATOR/Research Nurse/Skimmer Reverberatory: Gianni Encinas PhD or Maryan Bhardwaj or [phone] Pager: [phone] Recruitment Telephone Contact to introduce the study and discuss mailed study information to the patient prior to their upcoming Duplex Ultrasound Carotid Stenosis office visit. Informed the patient they may be able to join this research study when they come in for their scheduled ultrasound to look at the narrowing in their carotid artery. The subject did not decline participating and ICF mailed for review? Yes The study team will review the study with you when you come in for your ultrasound exam and you will be able to decide at that time if you wish to join the study. In the meantime, if there are any questions feel free to contact me at [phone]. REMINDER Confirm the scheduled date and time of their Ultrasound Exam with the subject. Maryan Bhardwaj Allergies As of Date: 08/16/2023 Noted Allergy Reaction ASPIRIN 05/14/2010 14 - Other: See Comments Comments: Patient states causes Bruising. CEPHALEXIN 01/30/2023 16 - Unknown DEMORAL (MEPERIDINE) 05/14/2010 14 - Other: See Comments Comments: Patient does not know if she is allergic but know she is not suppose to take it. LATEX 09/26/2012 2 - Rash 4 - Hives MORPHINE 04/12/2023 16 - Unknown Comments: Other Reaction(s): Unknown cause SULFA (SULFONAMIDE ANTIBIOTICS) 07/25/2023 5 - Intolerance Date Reviewed: 10/24/2017 Reviewed by: Eb Goss (Email Marketer), CALLIE - Fully Assessed Reason for Visit: Research [293] Prescriptions as of 08/16/2023 - apixaban (ELIQUIS) 5 mg tab(s) Take 5 mg by mouth. - aspirin, enteric coated (ASPIRIN, ENTERIC COATED) 81 mg EC tablet Take 81 mg by mouth. - atorvastatin (LIPITOR) 40 mg tablet Take 40 mg by mouth. - carvedilol (COREG) 3.125 mg tablet Take 3.125 mg by mouth. - digoxin (LANOXIN) 125 mcg (0.125 mg) tablet Take 125 mcg by mouth. - furosemide (LASIX) 40 mg tablet Take 40 mg by mouth. - losartan (COZAAR) 25 mg tablet Take 25 mg by mouth. - ondansetron orally disintegrating (ZOFRAN ODT) 4 mg disintegrating tablet DISSOLVE 1 TABLET ON THE TONGUE EVERY 8 HOURS - estradiol (ESTRACE) 0.01 % (0.1 mg/gram) vaginal cream Use 1 g vaginally. - LORazepam (ATIVAN) 0.5 mg Take 0.5 mg by mouth. - loperamide (IMODIUM) 2 mg cap(s) Take 2 capsules by mouth one time only for 1 dose. Take one hour after last bowel movement - estradiol 0.01 % (0.1 mg/g) vaginal cream Use a pea sized drop on finger, once every other day - tamsulosin 0.4 mg Cp24 Take 1 capsule by mouth daily at bedtime. - ATIVAN 0.5 MG TAB Take one(1) tablet two(2) times daily. Problem List As Of Date 08/16/2023 Noted Resolved INTESTINAL OBSTRUCT NOS [K56.609] 03/13/2009 Incomplete bladder emptying [R33.9] 09/26/2012 Non-rheumatic mitral regurgitation [I34.0] 07/25/2023 Nonrheumatic tricuspid valve regurgitation [I36*07/25/2023 Encounter Status:Closed by MARYAN BHARDWAJ on 08/16/23 Normal [facility] Outside Cardiovascularon Outside Cardiovascular [id number]# 1.00TIFF Normal [facility] Progress Note-Physicianon Progress Note-Physician [id number]#1 .00TIFF Normal [facility] Progress Note-Physician Normal [facility] Comment on above: Result Comment: Elec tronically Signed By: MARTINEZ MCMAHON, Johan Ribeiro.br\Date and Time Signed: 07/05/23 06:48 EST Echocardiogram-Transesophage anamaria 07-28-2023 Echocardiogram-Transes ophageal [id number]# 1.00TIFF Normal [facility] ASYA ASENCIO I ([id number]) 1950 F Date Time Provider Department 07/24/23 NITHYAMICHELINE BOLANOS During your visit today, we recorded the following information about you: Katie Nicholson 07/24/2023 10:08 AM Signed Please register insurance Thank you! Rebecca Nunn 07/24/2023 10:22 AM Signed IN Allergies As of Date: 07/24/2023 Noted Allergy Reaction ASPIRIN 05/14/2010 14 - Other: See Comments Comments: Patient states causes Bruising. DEMORAL (MEPERIDINE) 05/14/2010 14 - Other: See Comments Comments: Patient does not know if she is allergic but know she is not suppose to take it. LATEX 09/26/2012 2 - Rash 4 - Hives Date Reviewed: 10/24/2017 Reviewed by: Eb Goss (Email Marketer), CALLIE - Fully Assessed Reason for Visit: Insurance Inquiry [1462] Prescriptions as of 07/24/2023 - loperamide (IMODIUM) 2 mg cap(s) Take 2 capsules by mouth one time only for 1 dose. Take one hour after last bowel movement - estradiol 0.01 % (0.1 mg/g) vaginal cream Use a pea sized drop on finger, once every other day - tamsulosin 0.4 mg Cp24 Take 1 capsule by mouth daily at bedtime. - ATIVAN 0.5 MG TAB Take one(1) tablet two(2) times daily. Problem List As Of Date 07/24/2023 Noted Resolved INTESTINAL OBSTRUCT NOS [K56.609] 03/13/2009 Incomplete bladder emptying [R33.9] 09/26/2012 Encounter Status:Closed by REBECCA NUNN on 07/24/23 [facility] Telephone ([facility]) ASYA ASENCIO I ([id number]) 1950 F Date Time Provider Department 07/24/23 MICHELINE SORTO During your visit today, we recorded the following information about you: Katie Nicholson 07/24/2023 11:06 AM Signed LOCAL PATIENT Referral from. Dr. Johan Henriquez Reason: Mitral AND Tricuspid Valve Repair Testing: Cath, TTE, KRYSTINA AND CT images have been pushed. Reports are under Scanned Docs Newton Watts RN 07/25/2023 2:55 PM Signed Chart reviewed July 25, 2023. File given to Dr. Sorto for his review/plan of care. Asya Asencio [id number] 73 year old Diagnosis: Sev MR, Sev TR, AF with RVR Secondary Dx: anxiety, GERD, H/O urethral stricture Previous Surgeries: none noted Symptoms: dyspnea, SOB EF%: 30 Thinners: Eliquis, ASA 8`1 Smoking status: former-quit 30 years ago ROCÍO Wright Susan, RN 07/25/2023 2:[address] Sorto reviewed file and is offering evaluation and testing. NPM to contact patient to discuss. ROCÍO Wright Susan, RN 07/28/2023 10:16 AM Signed Expedite eval Needs Cards, CTA Chest, Echo, RHC, Carotids. Please call patient with date and let NPM know so that Elqiuis can be stopped prior to RHC FedEx Schedule to patient Patient accepted testing and evaluations. She will need a RHC, ECHO, CTA Chest, Carotid US, and eval with Cardiology and Dr. Sorto. [employer] will contact patient with date and let NPM know so that Eliquis can be stopped two days prior to RHC. ROCÍO Wright Susan, RN 07/28/2023 12:06 PM Signed Patients testing scheduled for 08/23/23. She was instructed to stop her Eliquis on 08/21 (last dose 08/20) and verbalized understanding. ROCÍO Wright Lisa 07/28/2023 12:06 PM Signed CONFIRMED DATES WITH PATIENT SENT SCHEDULE FED X Referring Provider: JOAHN HENRIQUEZ [[id number]] Allergies As of Date: 07/24/2023 Noted Allergy Reaction ASPIRIN 05/14/2010 14 - Other: See Comments Comments: Patient states causes Bruising. DEMORAL (MEPERIDINE) 05/14/2010 14 - Other: See Comments Comments: Patient does not know if she is allergic but know she is not suppose to take it. 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] Other specified symptoms and signs involving the circulatory and respiratory systems [R09.89] Mitral valve disorder [I05.9] Tricuspid valve disorders, non-rheumatic [I36.9] Order(s):CONSULT TO CARDIOLOGY [9004] Order #: [id number]: 1 FUTURE CARDIOTHORACIC PREOP EVALUATION [] Order #: [id number]: 1 FUTURE ECHO [425075] Order #: [id number]: 1 FUTURE CTA CHEST (GATED) W IVCON [3542784] Order #: [id number] FUTURE CREATININE BLD [SQCRET] Order #: [id number] FUTURE US CAROTID ARTERIES [facility] [3047767] Order #: [id number] FUTURE CARDIAC KEY FILER ORDER [1574648] Order #: [id number]: 1 Prescriptions as of 07/28/2023 - apixaban (ELIQUIS) 5 mg tab(s) Take 5 mg by mouth. - aspirin, enteric coated (ASPIRIN, ENTERIC COATED) 81 mg EC tablet Take 81 mg by mouth. - atorvastatin (LIPITOR) 40 mg tablet Take 40 mg by mouth. - carvedilol (COREG) 3.125 mg tablet Take 3.125 mg by mouth. - digoxin (LANOXIN) 125 mcg (0.125 mg) tablet Take 125 mcg by mouth. - furosemide (LASIX) 40 mg tablet Take 40 mg by mouth. - losartan (COZAAR) 25 mg tablet Take 25 mg by mouth. - ondansetron orally disintegrating (ZOFRAN ODT) 4 mg disintegrating tablet DISSOLVE 1 TABLET ON THE TONGUE EVERY 8 HOURS - estradiol (ESTRACE) 0.01 % (0.1 mg/gram) vaginal cream Use 1 g vaginally. - LORazepam (ATIVAN) 0.5 mg Take 0.5 mg by mouth. - loperamide (IMODIUM) 2 mg cap(s) Take 2 capsules by mouth one time only for 1 dose. Take one hour after last bowel movement - estradiol 0.01 % (0.1 mg/g) vaginal cream Use a pea sized drop on finger, once every other day - tamsulosin 0.4 mg Cp24 Take 1 capsule by mouth daily at bedtime. - ATIVAN 0.5 MG TAB Take one(1) tablet two(2) times daily. Problem List As Of Date 07/24/2023 Noted Resolved INTESTINAL OBSTRUCT NOS [K56.609] 03/13/2009 Incomplete bladder emptying [R33.9] 09/26/2012 Encounter Status:Closed by NEWTON WATTS on 07/28/23 Normal [facility] Discharge Instructionson Discharge Instructions [id number]# 1.00TIFF [facility] Formson 07-24-2023 Forms [id number]#1 .00TIFF [facility] Consent for Treatmenton Consent for Treatment [id number]#1 .00TIFF [facility] Inpatient Clinical Summaryon 07-21-2023 Inpatient Clinical Summary [facility] Inpatient Patient Summaryon 07-21-2023 Inpatient Patient Summary [facility] Patient Education - Texton 1 09-21-2022 Patient Education - Text [facility] Progress Note-Physicianon Progress Note-Physician [facility] Comment on above: Result Comment: Elec tronically Signed By: MARTINEZ MCMAHON, Johan Patino\.br\Date and Time Signed: 07/21/23 07:09 EST Referrals Officeon Referrals Office [id number]# 1.00TIFF [facility] Consent for Procedure/Surger yon 07-20-2023 Consent for Procedure/Surgery [id number] #1.00TIFF [facility] Consent for Treatmenton 0 Consent for Treatment [id number]#1 .00TIFF [facility] Heart and Vascular Office/Cl inic Noteon 07-20-2023 Heart and Vascular Office/Clinic Note [facility] Comment on above: Result Comment: Elec tronically Signed By: MARTINEZ MCMAHON, Johan Patino\.br\Date and Time Signed: 07/20/23 10:38 EST Physician Orderon 07-20-2023 Physician Order [id number] #1.00TIFF [facility] Ambulatory Visit Summaryon 1 09-19-2022 Ambulatory Visit Summary [facility] Patient Educationon 07-19-20 Patient Education [facility] Urology Office/Clinic Noteon 07-19-2023 Urology Office/Clinic Note [facility] Comment on above: Result Comment: Elec tronically Signed By: Micheline BROOKS MD\.br\Date and Time Signed: 07/19/23 16:01 EST\.br\Electronically Co-Signed By: Felisa Bautista\.br\Date and Time Co-Signed: 07/19/23 15:59 EST Coding Queryon 07-17-2023 Coding Query [facility] ED Note-Physicianon 07-15-20 ED Note-Physician [facility] Comment on above: Result Comment: Elec tronically Signed By: Jannette Black PA-C\.br\Date and Time Signed: 07/07/23 15:56 EST\.br\Electronically Co-Signed By: Jeff Cross DO\.br\Date and Time Co-Signed: 07/15/23 06:59 EST Cardiovascular Reporton 06-16 Cardiovascular Report [id number]# 2.00TIFF [facility] Nursing Assessmenton 023 Nursing Assessment [id number]# 1.00TIFF [facility] Discharge Instructionson Discharge Instructions [id number]# 1.00TIFF Normal [facility] Auto Diffon 07-07-2023 Basophils/100 WBC (Bld) 0.6 % Normal 0.0-2.0 [facility] Comment on above: Order Comment: Order Added by Discern Expert. Performed By: #### 1 1353640, 90902102, 8325037, 79656236, 7828220, 9151309, 72021862 ####[facility] [address] [place] [address] Basophils/Leukocytes Auto (Bld) [Pure # fraction] 0.0 E9/L Normal 0.0-0.2 [facility] Comment on above: Order Comment: Order Added by Discern Expert. Performed By: #### 1 2297599, 09094557, 5960884, 09957626, 8011021, 6642662, 92609182 ####[facility] [address] [place] [address] Eosinophils/100 WBC (Bld) 1.5 % Normal 0.0-8.0 [facility] Comment on above: Order Comment: Order Added by Discern Expert. Performed By: #### 1 5006281, 57253084, 6280115, 21408938, 5672510, 0171245, 93597317 ####[facility] [address] [place] [address] Eosinophils/Leukocytes Auto (Bld) [Pure # fraction] 0.1 E9/L Normal 0.0-0.5 [facility] Comment on above: Order Comment: Order Added by Discern Expert. Performed By: #### 1 1578353, 58814376, 7593490, 28703723, 0301200, 9966308, 20235821 ####[facility] [address] [place] [address] Lymphocytes/100 WBC (Bld) 15.3 % Normal 14.0-50.0 [facility] Comment on above: Order Comment: Order Added by Discern Expert. Performed By: #### 1 7787873, 48352421, 2965552, 30489625, 7559901, 2938941, 39672414 ####[address] [place] [address] Lymphocytes/Leukocytes Auto (Bld) [Pure # fraction] 1.2 E9/L Normal 1.0-4.0 [facility] Comment on above: Order Comment: Order Added by Discern Expert. Performed By: #### 1 9255726, 00971640, 7366130, 90747645, 0449001, 9790085, 71010655 ####[address] [place] [address] Monocytes/100 WBC (Bld) 6.4 % Normal 4.0-14.0 [facility] Comment on above: Order Comment: Order Added by Valeria Expert. Performed By: #### 1 8300488, 21047053, 1775156, 93684870, 4803518, 2638776, 59868511 ####[address] [address] Monocytes/Leukocytes Auto (Bld) [Pure # fraction] 0.5 E9/L Normal 0.2-1.0 [facility] Comment on above: Order Comment: Order Added by Valeria Expert. Performed By: #### 1 5790549, 23540094, 5263829, 29974011, 0654728, 9688577, 43607360 ####[address] [place] [address] Neutrophils/100 WBC (Bld) 76.2 % High 36.0-75.0 [facility] Comment on above: Order Comment: Order Added by Valeria Expert. Performed By: #### 1 4495128, 47713009, 8600336, 91957956, 2649992, 3388918, 42501733 ####[address] [place] [address] Neutrophils/Leukocytes Auto (Bld) [Pure # fraction] 6.1 E9/L Normal 2.0-7.5 [facility] Comment on above: Order Comment: Order Added by Discern Expert. Performed By: #### 1 5400978, 98991108, 5516816, 78066582, 9396847, 9053839, 94834173 ####[facility] [address] [place] [address] BMPon 07-07-2023 Creatinine [Mass/Vol] 0.8 mg/dL Normal 0.5-1.3 [facility] Comment on above: Performed By: #### 1 2164113, 25165733, 6823336, 06351798, 4370807, 9337597, 02332275 ####[facility] [address] [place] [address] Urea nitrogen [Mass/Vol] 13 mg/dL Normal 5-21 [facility] Comment on above: Performed By: #### 1 2386882, 70421762, 8014808, 59850257, 3701244, 5353756, 38716229 ####[facility] [address] [place] [address] Urea nitrogen/Creatinine [Mass ratio] 16 No Units Normal 10-20 [facility] Comment on above: Performed By: #### 1 6687134, 37227840, 8890255, 18920071, 6534785, 6217869, 21429527 ####[facility] [address] [place] [address] Anion gap [Moles/Vol] 14 mmol/L Normal 6-16 [facility] Comment on above: Performed By: #### 1 8145719, 92416861, 7364338, 75672542, 8863433, 0703143, 65846833 ####[facility] [address] [place] [address] Calcium [Mass/Vol] 8.7 mg/dL Low 8.9-11.1 [facility] Comment on above: Performed By: #### 1 9486281, 00024298, 5168838, 90633763, 5166772, 7900970, 46208262 ####[facility] [address] [place] [address] Chloride [Moles/Vol] 100 mmol/L Low 101-111 [facility] Comment on above: Performed By: #### 1 8540492, 85924709, 2145599, 05062720, 4246740, 5988495, 50532024 ####[facility] [address] [place] [address] CO2 [Moles/Vol] 26 mmol/L Normal 21-31 [facility] Comment on above: Performed By: #### 1 7956864, 76131272, 2113196, 49702107, 1851033, 3148529, 97784410 ####[facility] [address] [place] [address] Glucose [Mass/Vol] 137 mg/dL Normal 55-199 [facility] Comment on above: Result Comment: If t his glucose result represents a fasting glucose, interpretation should refer to the following reference range: 55-99 mg/dL Performed By: #### 1 0153608, 19372980, 6195565, 41249169, 7903711, 9159060, 43459145 ####[facility] [address] [place] [address] Potassium [Moles/Vol] 4.3 mmol/L Normal 3.5-5.3 [facility] Comment on above: Performed By: #### 1 0007776, 27566182, 4964270, 34703230, 6103640, 6841490, 74909349 ####[facility] [address] [place] [address] Sodium [Moles/Vol] 136 mmol/L Normal 135-145 [facility] Comment on above: Performed By: #### 1 1919555, 31268516, 2167103, 47215238, 1945755, 5666155, 79886012 ####[facility] [address] [place] [address] BNPon 07-07-2023 Natriuretic peptide B (Bld) [Mass/Vol] 756 pg/mL High 5-80 [facility] Comment on above: Performed By: #### 1 1644679, 99174012, 1989462, 71135905, 7417975, 8803973, 07649366 ####[facility] [address] [place] [address] CBC w/ Auto Diffon 3 Erythrocyte distribution width (RBC) [Ratio] 13.8 % Normal 10.9-14.2 [facility] Comment on above: Performed By: #### 1 0441460, 45308565, 8459639, 19109731, 4020951, 9347907, 51767638 ####[address] [place] [address] Hematocrit (Bld) [Volume fraction] 40.3 % Normal 34.0-46.0 [facility] Comment on above: Performed By: #### 1 0422349, 52910299, 4896681, 34957321, 0259136, 1468605, 12686950 ####[address] [place] [address] Hemoglobin (Bld) [Mass/Vol] 13.0 g/dL Normal 12.0-16.0 [facility] Comment on above: Performed By: #### 1 [id number], 55701491, 3107895, 83752790, 7812040, 4438135, 85667253 ####[address] [place] [address] MCH (RBC) [Entitic mass] 29.2 pg Normal 27.0-34.0 [facility] Comment on above: Performed By: #### 1 8649004, 59569902, 8522696, 05863021, 1611745, 8792485, 17102013 ####[address] [place] [address] MCHC (RBC) [Mass/Vol] 32.3 g/dL Normal 31.4-36.0 [facility] Comment on above: Performed By: #### 1 7420382, 08050001, 8039856, 95272752, 1856119, 4558938, 01464000 ####[address] [place] [address] MCV (RBC) [Entitic vol] 90.2 fL Normal 80.0-100.0 [facility] Comment on above: Performed By: #### 1 8755100, 22949199, 0314982, 91700315, 0445268, 1698644, 21844850 ####[address] [address] Platelet mean volume (Bld) [Entitic vol] 8.5 fL Normal 6.4-10.8 [facility] Comment on above: Performed By: #### 1 7416664, 24974854, 1795616, 04900504, 3152389, 6305728, 51063034 ####[address] [address] Platelets (Bld) [#/Vol] 291.0 E9/L Normal 150.0-500.0 [facility] Comment on above: Performed By: #### 1 9139065, 28610927, 4418315, 09355795, 8521312, 4987224, 99514445 ####[address] RBC (Bld) [#/Vol] 4.5 E12/L Normal 4.3-5.9 [facility] Comment on above: Performed By: #### 1 0244154, 18503036, 9840858, 62957266, 4811886, 9263501, 78498419 ####[address] [address] WBC corrected for nucl RBC Auto (Bld) [#/Vol] 8.0 E9/L Normal 4.0-11.0 [facility] Comment on above: Performed By: #### 1 6875185, 66356099, 1937174, 01005879, 1649428, 1774250, 91524621 ####[address] [address] CHEMISTRYOrdered By: SYSTEM SYSTEM on 07-07-2023 Troponin I.cardiac [Mass/Vol] 42.10 pg/mL Invalid Interpretation Code 10.10 - 27.10 pg/mL [facility] Remisol Comment on above: Result Comment: Crit ical Result verified by previous result\ Critical Result I_hsTnI:42.1 Called to JANNETTE WING at ER by DAMIEN CORREA and read back for confirmation at 07/07/2023 12:28:40 Interpretive Data: T he 95% CI (Confidence Interval) PPV (Positive Predictive Value) for myocardial infarction in females is 38 pg/mL, in males 51 pg/mL. The results should be used in conjunction with clinical conditions of myocardial infarction. (Access High Sensitivity Troponin I Instructions For Use, Marlys paOnde, March 2018) Anion gap [Moles/Vol] 14 mmol/L Normal 6 - 16 mEq/L [facility] Calcium [Mass/Vol] 8.7 mg/dL Low 8.9 - 11. 1 mg/dL [facility] Chloride [Moles/Vol] 100 mmol/L Low 101 - 1 11 mmol/L [facility] CO2 [Moles/Vol] 26 mmol/L Normal 21 - 31 mmol/L [facility] Creatinine [Mass/Vol] 0.8 mg/dL Normal 0.5 - 1.3 mg/dL [facility] Remisol GFR/1.73 sq M.predicted among non-blacks MDRD (S/P/Bld) [Vol rate/Area] 77 mL/min/1.73 m2 Normal >=59mL/min/1 .73 m2 [facility] Chem S Comment on above: Interpretive Data: C hronic kidney disease could be indicated at eGFR's of less than 60 mL/min/1.73m2. Kidney failure is indicated at less than 15 mL/min/1.73m2. Glucose [Mass/Vol] 137 mg/dL Normal 55 - 199 mg/dL [facility] Comment on above: Interpretive Data: I f this glucose result represents a fasting glucose, interpretation should refer to the following reference range: 55-99 mg/dL Potassium [Moles/Vol] 4.3 mmol/L Normal 3.5 - 5.3 mmol/L [facility] Sodium [Moles/Vol] 136 mmol/L Normal 135 - 145 mmol/L [facility] Remisol Troponin I.cardiac [Mass/Vol] 39.60 pg/mL Invalid Interpretation Code 10.10 - 27.10 pg/mL [facility] Remisol Comment on above: Result Comment: Crit ical Result verified by repeat analysis\ Critical Result I_hsTnI:39.6 Called to TANESHA BAUMANN at by DAMIEN CORREA and read back for confirmation at 07/07/2023 10:30:10 Interpretive Data: T he 95% CI (Confidence Interval) PPV (Positive Predictive Value) for myocardial infarction in females is 38 pg/mL, in males 51 pg/mL. The results should be used in conjunction with clinical conditions of myocardial infarction. (Access High Sensitivity Troponin I Instructions For Use, Marlys Ariad[place], March 2018) Urea nitrogen [Mass/Vol] 13 mg/dL Normal 5 - 21 mg/dL [facility] Remisol Urea nitrogen/Creatinine [Mass ratio] 16 mg/mg Normal 10 - 20 [facility] Remisol CHEMISTRYOrdered By: Margaret Collier on 07-07-2023 Natriuretic peptide B (Bld) [Mass/Vol] 756 pg/mL High 5 - 80 pg/mL [facility] HemeManSS COAGULATIONOrdered By: Fay Tran on 07-07-2023 aPTT Coag (PPP) [Time] 28.4 s Normal 25.1 - 36.5 second(s) [facility] Auto Coag Comment on above: Interpretive Data: P pericoer 15 days - 4 weeks 1 - 5 months 6 - 11 months 1 - 5 years 6 - 10 years 11 - 17 years PTT Mean: 35.4 (27.6-45.6) Mean: 33.5 (24.8-40.7) Mean: 32.4 (25.1-40.7) Mean: 31.6 (24.0-39.2) Mean: 31.6 (26.9-38.7) Mean: 31.0 (24.6-38.4) Pediatric Reference ranges were obtained from a study by Roel Loco et al. prepared from 1437 samples obtained at 7 different centers using the same coagulation reagent and instrumentation as [facility]. Currently there are no coagulation studies available worldwide for children to 14 days, and no normal ranges. Heparin therapeutic range (represented by Anti-Factor Xa activity of 0.2 - 0.4 U/mL) corresponds to PTT of 56.6 - 109.0 sec. INR Coag (PPP) [Relative time] 1.0 {INR} Invalid Interpretation Code [facility] Auto Coag Comment on above: Interpretive Data: I NR results are specifically intended to assess patients stabilized on long-term Anticoagulation therapy suggested INR s Less Intensive Anticoagulation 2.0 3.0 Conventional Range 3.0 4.5 PT Coag (PPP) [Time] 11.3 s Normal 9.4 - 1 2.5 second(s) [facility] Auto Coag Comment on above: Interpretive Data: 1 5 days - 4 weeks 1 - 5 months 6 -11 months 1 5 years 6 10 years 11 -17 years Mean: 11.2 (9.5 12.6) Mean: 11.0 (9.7 12.8) Mean: 11.0 (9.8 13.0) Mean: 11.3 (9.9 13.4) Mean: 11.7 (10.0 14.6) Mean: 11.8 (10.0 - 14.1) Pediatric Reference ranges were obtained from a study by Roel Loco et al. prepared from 1437 samples obtained at 7 different centers using the same coagulation reagent and instrumentation as [facility]. Currently there are no coagulation studies available worldwide for children to 14 days, and no normal ranges. Consent for Procedure/Surger yon 07-07-2023 Consent for Procedure/Surgery [id number]# 1.00TIFF Normal [facility] Consent for Treatmenton 06-15 Consent for Treatment [id number]#1 .00TIFF [facility] Discharge Instructionson Discharge Instructions [id number]#1 .00TIFF Normal [facility] ED Clinical Summaryon 2022 ED Clinical Summary Normal [facility] ED Note-Nursingon 07-07-2023 ED Note-Nursing discussed in length medications pt needs to take yet today and need to last picker Rx 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 Normal [facility] ED Patient Education Noteon 07-07-2023 ED Patient Education Note Normal [facility] ED Patient Summaryon 023 ED Patient Summary Normal [facility] HEMATOLOGYOrdered By: SYSTEM SYSTEM on 07-07-2023 Basophils/100 WBC (Bld) 0.6 % Normal 0.0 - 2.0 % [facility] HemeAutoSS Basophils/Leukocytes Auto (Bld) [Pure # fraction] 0.0 E9/L Normal 0.0 - 0.2 E9/L [facility]eAutoSS Eosinophils/100 WBC (Bld) 1.5 % Normal 0.0 - 8.0 % [facility]eAutoSS Eosinophils/Leukocytes Auto (Bld) [Pure # fraction] 0.1 E9/L Normal 0.0 - 0.5 E9/L [facility] Lymphocytes/100 WBC (Bld) 15.3 % Normal 14.0 - 50.0 % [facility]eAutoSS Lymphocytes/Leukocytes Auto (Bld) [Pure # fraction] 1.2 E9/L Normal 1.0 - 4.0 E9/L [facility]eAutoSS Monocytes/100 WBC (Bld) 6.4 % Normal 4.0 - 14.0 % [facility]eAutoSS Monocytes/Leukocytes Auto (Bld) [Pure # fraction] 0.5 E9/L Normal 0.2 - 1.0 E9/L [facility]AutoSS Neutrophils/100 WBC (Bld) 76.2 % High 36.0 - 75.0 % [facility]eAutoSS Neutrophils/Leukocytes Auto (Bld) [Pure # fraction] 6.1 E9/L Normal 2.0 - 7.5 E9/L [facility] HEMATOLOGYOrdered By: Sharifa Castillo on 07-07-2023 Erythrocyte distribution width (RBC) [Ratio] 13.8 % Normal 10.9 - 14.2 % [facility] Hematocrit (Bld) [Volume fraction] 40.3 % Normal 34.0 - 46.0 % [facility]eAuto[facility] Hemoglobin (Bld) [Mass/Vol] 13.0 g/dL Normal 12.0 - 16.0 gm/dL [facility] MCH (RBC) [Entitic mass] 29.2 pg Normal 27.0 - 34.0 pg [facility]eAutoSS MCHC (RBC) [Mass/Vol] 32.3 g/dL Normal 31.4 - 36.0 gm/dL [facility] HemeAutoSS MCV (RBC) [Entitic vol] 90.2 fL Normal 80.0 - 100.0 fL [facility] HemeAutoSS Platelet mean volume (Bld) [Entitic vol] 8.5 fL Normal 6.4 - 10.8 fL [facility] HemeAutoSS Platelets (Bld) [#/Vol] 291.0 E9/L Normal 150.0 - 500.0 E9/L [facility] HemeAutoSS RBC (Bld) [#/Vol] 4.5 E12/L Normal 4.3 - 5.9 E12/L [facility] HemeAutoSS WBC corrected for nucl RBC Auto (Bld) [#/Vol] 8.0 E9/L Normal 4.0 - 11.0 E9/L [facility] HemeAutoSS Insurance Correspondence Off iceon 07-07-2023 Insurance Correspondence Office [id number]#1 .00TIFF Normal [facility] Monitor Recordon 07-07-2023 Monitor Record [id number]# 1.00TIFF Normal [facility] Monitor Record [id number]# 1.00TIFF Normal [facility] Monitor Record [id number]# 1.00TIFF Normal [facility] PT & PTTon 07-07-2023 aPTT Coag (PPP) [Time] 28.4 second(s) Normal 25.1-36.5 [facility] Comment on above: Result Comment: Para meter 15 days - 4 weeks 1 - 5 months 6 - 11 months 1 - 5 years 6 - 10 years 11 - 17 years PTT Mean: 35.4 (27.6-45.6) Mean: 33.5 (24.8-40.7) Mean: 32.4 (25.1-40.7) Mean: 31.6 (24.0-39.2) Mean: 31.6 (26.9-38.7) Mean: 31.0 (24.6-38.4) Pediatric Reference ranges were obtained from a study by keith Fam al. prepared from 1437 samples obtained at 7 different centers using the same coagulation reagent and instrumentation as [facility]. Currently there are no coagulation studies available worldwide for children to 14 days, and no normal ranges. Heparin therapeutic range (represented by Anti-Factor Xa activity of 0.2 - 0.4 U/mL) corresponds to PTT of 56.6 - 109.0 sec. Performed By: #### 1 [id number], 10362898, 5169176, 73233872, 2120968, 8661460, 79032959 ####[facility] [address] [place] [address] INR Coag (PPP) [Relative time] 1.0 {INR} Invalid Interpretation Code [facility] Comment on above: Result Comment: INR results are specifically intended to assess patients stabilized on long-term Anticoagulation therapy suggested INR?s ?Less Intensive Anticoagulation? 2.0 ? 3.0Conventional Range 3.0 ? 4.5 Performed By: #### 1 [id number], 50991936, 7091386, 09838459, 0973857, 7884665, 42231869 ####[facility] [address] [place] [address] PT Coag (PPP) [Time] 11.3 second(s) Normal 9.4-12.5 [facility] Comment on above: Result Comment: 15 d ays - 4 weeks 1 - 5 months 6 -11 months 1 ? 5 years 6 ? 10 years 11 -17 years Mean: 11.2 (9.5 ? 12.6) Mean: 11.0 (9.7 ? 12.8) Mean: 11.0 (9.8 ? 13.0) Mean: 11.3 (9.9 ? 13.4) Mean: 11.7 (10.0 ? 14.6) Mean: 11.8 (10.0 - 14.1) Pediatric Reference ranges were obtained from a study by keith Fam al. prepared from 1437 samples obtained at 7 different centers using the same coagulation reagent and instrumentation as [facility]. Currently there are no coagulation studies available worldwide for children to 14 days, and no normal ranges. Performed By: #### 1 [id number], 44091679, 7655868, 08058941, 5742765, 7100264, 21544615 ####[facility] [address] [place] [address] Troponin 0 Hr.on 07-07-2023 Troponin I.cardiac [Mass/Vol] 39.60 pg/mL Abnormal 10.10-27.10 [facility] Comment on above: Result Comment: Crit ical Result verified by repeat analysis\ Critical Result I_hsTnI:39.6 Called to TANESHA BAUMANN at ER by DAMIEN CORREA and read back for confirmation at 07/07/2023 10:30:10The 95% CI (Confidence Interval) PPV (Positive Predictive Value) for myocardial infarction in females is 38 pg/mL, in males 51 pg/mL. The results should be used in conjunction with clinical conditions of myocardial infarction.([employer] High Sensitivity Troponin I Instructions For Use, [employer], March 2018) Performed By: #### 1 2843584, 56463934, 4049839, 81233541, 0773400, 3418145, 68800517 ####[facility] [address] [place] [address] Troponin 3 Hr.on 07-07-2023 Troponin I.cardiac [Mass/Vol] 42.10 pg/mL Abnormal 10.10-27.10 [facility] Comment on above: Result Comment: Crit ical Result verified by previous result\ Critical Result I_hsTnI:42.1 Called to JANNETTE WING at ER by DAIMEN CORREA and read back for confirmation at 07/07/2023 12:28:40The 95% CI (Confidence Interval) PPV (Positive Predictive Value) for myocardial infarction in females is 38 pg/mL, in males 51 pg/mL. The results should be used in conjunction with clinical conditions of myocardial infarction.([employer] High Sensitivity Troponin I Instructions For Use, [employer], March 2018) Performed By: #### 1 [id number] ####[facility] [address] [place] [address] XR Chest Single Viewon 07-07 XR Chest Single View Normal [facility] eGFRon 07-07-2023 GFR/1.73 sq M.predicted among non-blacks MDRD (S/P/Bld) [Vol rate/Area] 77 mL/min/1.73 m2 Normal >=59 [facility] Comment on above: Order Comment: Order added by Discern Expert. Result Comment: Washtub Worker luis kidney disease could be indicated at eGFR's of less than 60 mL/min/1.73m2. Kidney failure is indicated at less than 15 mL/min/1.73m2. Performed By: #### 1 5924545, 34155648, 7210884, 77443271, 2154948, 5117676, 93471535 ####[facility] [address] [place] [address] BMPon 07-06-2023 Anion gap [Moles/Vol] 5 mmol/L Low 6-16 [facility] Comment on above: Performed By: #### 1 1732439, 5300996 ####[facility] [address] [place] [address] Calcium [Mass/Vol] 8.0 mg/dL Low 8.9-11.1 [facility] Comment on above: Performed By: #### 1 8806604, 2393160 ####[facility] [address] [place] [address] Chloride [Moles/Vol] 109 mmol/L Normal 101-111 [facility] Comment on above: Performed By: #### 1 0925975, 8193676 ####[facility] [address] [place] [address] CO2 [Moles/Vol] 28 mmol/L Normal 21-31 [facility] Comment on above: Performed By: #### 1 9446097, 7761561 ####[facility] [address] [place] [address] Creatinine [Mass/Vol] 0.7 mg/dL Normal 0.5-1.3 [facility] Comment on above: Performed By: #### 1 6398664, 7771257 ####[facility] [address] [place] [address] Glucose [Mass/Vol] 91 mg/dL Normal 55-199 [facility] Comment on above: Result Comment: If t his glucose result represents a fasting glucose, interpretation should refer to the following reference range: 55-99 mg/dL Performed By: #### 1 7800995, 6022353 ####[facility] [address] [place] [address] Potassium [Moles/Vol] 3.9 mmol/L Normal 3.5-5.3 [facility] Comment on above: Performed By: #### 1 2029948, 4062272 ####[facility] [address] [place] [address] Sodium [Moles/Vol] 138 mmol/L Normal 135-145 [facility] Comment on above: Performed By: #### 1 2151267, 5734854 ####[facility] [address] [place] [address] Urea nitrogen [Mass/Vol] 12 mg/dL Normal 5-21 [facility] Comment on above: Performed By: #### 1 5500675, 8529201 ####[facility] [address] [place] [address] Urea nitrogen/Creatinine [Mass ratio] 17 No Units Normal 10-20 [facility] Comment on above: Performed By: #### 1 6636798, 4027623 ####[facility] [address] [place] [address] CHEMISTRYOrdered By: SYSTEM SYSTEM on 07-06-2023 Anion gap [Moles/Vol] 5 mmol/L Low 6 - 16 mEq/L [facility] Calcium [Mass/Vol] 8.0 mg/dL Low 8.9 - 11. 1 mg/dL [facility] Chloride [Moles/Vol] 109 mmol/L Normal 101 - 1 11 mmol/L [facility] CO2 [Moles/Vol] 28 mmol/L Normal 21 - 31 mmol/L [facility] Rem[facility] Creatinine [Mass/Vol] 0.7 mg/dL Normal 0.5 - 1.3 mg/dL [facility] GFR/1.73 sq M.predicted among non-blacks MDRD (S/P/Bld) [Vol rate/Area] 90 mL/min/1.73 m2 Normal >=59mL/min/1 .73 m2 [facility] Chem S Comment on above: Interpretive Data: C hronic kidney disease could be indicated at eGFR's of less than 60 mL/min/1.73m2. Kidney failure is indicated at less than 15 mL/min/1.73m2. Glucose [Mass/Vol] 91 mg/dL Normal 55 - 199 mg/dL [facility] Remisol Comment on above: Interpretive Data: I f this glucose result represents a fasting glucose, interpretation should refer to the following reference range: 55-99 mg/dL Potassium [Moles/Vol] 3.9 mmol/L Normal 3.5 - 5.3 mmol/L [facility] Remisol Sodium [Moles/Vol] 138 mmol/L Normal 135 - 145 mmol/L [facility] Remisol Urea nitrogen [Mass/Vol] 12 mg/dL Normal 5 - 21 mg/dL [facility] Remisol Urea nitrogen/Creatinine [Mass ratio] 17 mg/mg Normal 10 - 20 [facility] Remisol Discharge Note-Nursingon Discharge Note-Nursing Normal [facility] Inpatient Clinical Summaryon 07-06-2023 Inpatient Clinical Summary Normal [facility] Inpatient Patient Summaryon 07-06-2023 Inpatient Patient Summary Normal [facility] Interdisciplinary Note - Tico e Manageron 07-06-2023 Interdisciplinary Note - Third Officer Normal [facility] Comment on above: Result Comment: Elec tronically Signed By: Martín ALFORD, Radha\.br\Date and Time Signed: 07/06/23 12:06 EST Monitor Recordon 07-06-2023 Monitor Record [id number]# 1.00TIFF Normal [facility] Monitor Record [id number]# 1.00TIFF Normal [facility] Monitor Record [id number]# 1.00TIFF Normal [facility] Monitor Record [id number]# 1.00TIFF Normal [facility] Progress Note-Physicianon Progress Note-Physician Normal [facility] Comment on above: Result Comment: Elec tronically Signed By: JAZMÍN MCMAHON, Nahid\.br\Date and Time Signed: 07/06/23 11:56 EST Progress Note-Physician Normal [facility] Comment on above: Result Comment: Elec tronically Signed By: Johan HENRIQUEZ MD\.br\Date and Time Signed: 07/06/23 09:22 EST eGFRon 07-06-2023 GFR/1.73 sq M.predicted among non-blacks MDRD (S/P/Bld) [Vol rate/Area] 90 mL/min/1.73 m2 Normal >=59 [facility] Comment on above: Order Comment: Order added by Discern Expert. Result Comment: Washtub Worker luis kidney disease could be indicated at eGFR's of less than 60 mL/min/1.73m2. Kidney failure is indicated at less than 15 mL/min/1.73m2. Performed By: #### 1 [id number], [id number] ####[facility] [address] [place] [address] BMPon 07-05-2023 Anion gap [Moles/Vol] 9 mmol/L Normal 6-16 [facility] Comment on above: Performed By: #### 1 [id number], 7805427 ####[facility] [address] [place] [address] Calcium [Mass/Vol] 8.2 mg/dL Low 8.9-11.1 [facility] Comment on above: Performed By: #### 1 9264856, 4210267 ####[facility] [address] [place] [address] Chloride [Moles/Vol] 105 mmol/L Normal 101-111 [facility] Comment on above: Performed By: #### 1 7397592, 6650876 ####[facility] [address] [place] [address] CO2 [Moles/Vol] 27 mmol/L Normal 21-31 [facility] Comment on above: Performed By: #### 1 1523948, 1951194 ####[facility] [address] [place] [address] Creatinine [Mass/Vol] 0.7 mg/dL Normal 0.5-1.3 [facility] Comment on above: Performed By: #### 1 4966545, 0367531 ####[facility] [address] [place] [address] Glucose [Mass/Vol] 115 mg/dL Normal 55-199 [facility] Comment on above: Result Comment: If t his glucose result represents a fasting glucose, interpretation should refer to the following reference range: 55-99 mg/dL Performed By: #### 1 [id number], 0670026 ####[facility] [address] [place] [address] Potassium [Moles/Vol] 4.3 mmol/L Normal 3.5-5.3 [facility] Comment on above: Performed By: #### 1 5842038, 9424930 ####[facility] [address] [place] [address] Sodium [Moles/Vol] 137 mmol/L Normal 135-145 [facility] Comment on above: Performed By: #### 1 4732856, 6562746 ####[facility] [address] [place] [address] Urea nitrogen [Mass/Vol] 13 mg/dL Normal 5-21 [facility] Comment on above: Performed By: #### 1 1566684, 4382097 ####[facility] [address] [place] [address] Urea nitrogen/Creatinine [Mass ratio] 19 No Units Normal 10-20 [facility] Comment on above: Performed By: #### 1 2586642, 3197477 ####[facility] [address] [place] [address] CHEMISTRYOrdered By: SYSTEM SYSTEM on 07-05-2023 Anion gap [Moles/Vol] 9 mmol/L Normal 6 - 16 mEq/L [facility] Calcium [Mass/Vol] 8.2 mg/dL Low 8.9 - 11. 1 mg/dL [facility] Chloride [Moles/Vol] 105 mmol/L Normal 101 - 1 11 mmol/L [facility] Remisol CO2 [Moles/Vol] 27 mmol/L Normal 21 - 31 mmol/L [facility] Remisol Creatinine [Mass/Vol] 0.7 mg/dL Normal 0.5 - 1.3 mg/dL [facility] Remisol GFR/1.73 sq M.predicted among non-blacks MDRD (S/P/Bld) [Vol rate/Area] 90 mL/min/1.73 m2 Normal >=59mL/min/1 .73 m2 [facility] Chem S Comment on above: Interpretive Data: C hronic kidney disease could be indicated at eGFR's of less than 60 mL/min/1.73m2. Kidney failure is indicated at less than 15 mL/min/1.73m2. Glucose [Mass/Vol] 115 mg/dL Normal 55 - 199 mg/dL [facility] [facility] Comment on above: Interpretive Data: I f this glucose result represents a fasting glucose, interpretation should refer to the following reference range: 55-99 mg/dL Potassium [Moles/Vol] 4.3 mmol/L Normal 3.5 - 5.3 mmol/L [facility] Sodium [Moles/Vol] 137 mmol/L Normal 135 - 145 mmol/L [facility] Urea nitrogen [Mass/Vol] 13 mg/dL Normal 5 - 21 mg/dL [facility] Urea nitrogen/Creatinine [Mass ratio] 19 mg/mg Normal 10 - 20 [facility] CHEMISTRYOrdered By: Lab ROP User on 07-05-2023 Glucose [Mass/Vol] 79 mg/dL Normal 55 - 99 mg/dL [facility] POC Subsection Comment on above: Result Comment: Neli PIÑA POC Username NIKHIL PAULSON Invalid Interpretation Code [facility] POC Subsection Sodium [Moles/Vol] 108162913553 mmol/L Invalid Interpretation Code [facility] POC Subsection Sodium [Moles/Vol] 849028425 mmol/L Invalid Interpretation Code [facility] POC Subsection Capillary Glucose POCon 06-15 Glucose [Mass/Vol] 79 mg/dL Normal 55-99 [facility] Comment on above: Result Comment: Neli PIÑA Performed By: #### 2 [id number] ####[facility] [address] [place] [address] Cardiovascular Reporton 06-15 Cardiovascular Report [id number]# 1.00TIFF Normal [facility] Interdisciplinary Note - Tico e Manageron 07-05-2023 Interdisciplinary Note - Third Officer [facility] Comment on above: Result Comment: Elec tronically Signed By: Margaret Grimm\.br\Date and Time Signed: 07/05/23 15:06 EST Monitor Recordon 07-05-2023 Monitor Record [id number]# 1.00TIFF Normal [facility] Monitor Record [id number] 1 [id number]# 1.00TIFF Normal [facility] Monitor Record [id number] 1 [id number]# 1.00TIFF Normal [facility] Monitor Record [id number]# 1.00TIFF Normal [facility] Operative Reporton Operative Report Normal [facility] Comment on above: Result Comment: Elec tronically Signed By: MARTINEZ MCMAHON, Johan Patino\.br\Date and Time Signed: 07/05/23 11:46 EST Progress Note-Nurseon 2022 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 Normal [facility] Progress Note-Physicianon Progress Note-Physician Normal [facility] Comment on above: Result Comment: Elec tronically Signed By: JAZMÍN MCMAHON, Nahid\.br\Date and Time Signed: 07/05/23 11:19 EST eGFRon 07-05-2023 GFR/1.73 sq M.predicted among non-blacks MDRD (S/P/Bld) [Vol rate/Area] 90 mL/min/1.73 m2 Normal >=59 [facility] Comment on above: Order Comment: Order added by Discern Expert. Result Comment: Washtub Worker luis kidney disease could be indicated at eGFR's of less than 60 mL/min/1.73m2. Kidney failure is indicated at less than 15 mL/min/1.73m2. Performed By: #### 1 [id number], [id number] ####[facility] [address] [place] [address] Interdisciplinary Note - Tico e Manageron 07-04-2023 Interdisciplinary Note - Third Officer Normal [facility] Comment on above: Result Comment: Elec tronically Signed By: Margaret Grimm\.br\Date and Time Signed: 07/04/23 10:49 EST Monitor Recordon 07-04-2023 Monitor Record [id number]# 1.00TIFF Normal [facility] Monitor Record [id number] 1 [id number]# 1.00TIFF Normal [facility] Monitor Record [id number]# 1.00TIFF Normal [facility] Monitor Record [id number]# 1.00TIFF Normal [facility] Patient Education - Texton 1 09-03-2022 Patient Education - Text [facility] Progress Note-Physicianon Progress Note-Physician Normal [facility] Comment on above: Result Comment: Elec tronically Signed By: JAZMÍN MCMAHON, Nahid\.br\Date and Time Signed: 07/04/23 10:53 EST Progress Note-Physician Normal [facility] Comment on above: Result Comment: Elec tronically Signed By: MARTINEZ MCMAHON, Johan Patino\.br\Date and Time Signed: 07/04/23 08:04 EST Auto Diffon 07-03-2023 Basophils/100 WBC (Bld) 0.3 % Normal 0.0-2.0 [facility] Comment on above: Order Comment: Order Added by Discern Expert. Performed By: #### 2 144863, 3310726, 7743658, 9397472, 38681500, 1440473, 70991572 ####[address] [place] [address] Basophils/Leukocytes Auto (Bld) [Pure # fraction] 0.0 E9/L Normal 0.0-0.2 [facility] Comment on above: Order Comment: Order Added by Discern Expert. Performed By: #### 2 888920, 8627209, 2409223, 2052883, 46536063, 4849749, 98022062 ####[address] [address] Eosinophils/100 WBC (Bld) 0.0 % Normal 0.0-8.0 [facility] Comment on above: Order Comment: Order Added by Discern Expert. Performed By: #### 2 869945, 6555786, 2131983, 0157279, 38950217, 9232218, 23789455 ####[address] [address] Eosinophils/Leukocytes Auto (Bld) [Pure # fraction] 0.0 E9/L Normal 0.0-0.5 [facility] Comment on above: Order Comment: Order Added by Discern Expert. Performed By: #### 2 366700, 3899365, 6107018, 9764756, 32406250, 3581531, 05517704 ####[address] [address] Lymphocytes/100 WBC (Bld) 15.3 % Normal 14.0-50.0 [facility] Comment on above: Order Comment: Order Added by Discern Expert. Performed By: #### 2 290212, 8746080, 4709706, 6245151, 80807876, 2478049, 55466269 ####[address] [address] Lymphocytes/Leukocytes Auto (Bld) [Pure # fraction] 0.9 E9/L Low 1.0-4.0 [facility] Comment on above: Order Comment: Order Added by Discern Expert. Performed By: #### 2 159157, 6843901, 0832204, 0152836, 31659829, 1006549, 24095227 ####[facility] [address] [place] [address] Monocytes/100 WBC (Bld) 7.7 % Normal 4.0-14.0 [facility] Comment on above: Order Comment: Order Added by Discern Expert. Performed By: #### 2 897987, 9627035, 1069983, 7151041, 82947313, 9774996, 39447089 ####[address] [place] [address] Monocytes/Leukocytes Auto (Bld) [Pure # fraction] 0.5 E9/L Normal 0.2-1.0 [facility] Comment on above: Order Comment: Order Added by Discern Expert. Performed By: #### 2 115088, 8367874, 0015431, 6536204, 89586953, 0882193, 25136516 ####[address] [address] Neutrophils/100 WBC (Bld) 76.7 % High 36.0-75.0 [facility] Comment on above: Order Comment: Order Added by Discern Expert. Performed By: #### 2 509617, 9545608, 0141039, 3081271, 60157853, 8961677, 47859904 ####[address] [place] [address] Neutrophils/Leukocytes Auto (Bld) [Pure # fraction] 4.7 E9/L Normal 2.0-7.5 [facility] Comment on above: Order Comment: Order Added by Discern Expert. Performed By: #### 2 713322, 4632790, 0976373, 1363111, 89745360, 0397966, 35366503 ####[address] [place] [address] BMPon 07-03-2023 Creatinine [Mass/Vol] 1.0 mg/dL Normal 0.5-1.3 [facility] Comment on above: Performed By: #### 2 403767, 4768622, 6408870, 0753507, 42573617, 0313091, 84331805 ####[facility] [address] [place] [address] Urea nitrogen [Mass/Vol] 13 mg/dL Normal 5-21 [facility] Comment on above: Performed By: #### 2 010630, 9464393, 5357991, 6436335, 78237371, 8301265, 46037583 ####[facility] [address] [place] [address] Urea nitrogen/Creatinine [Mass ratio] 13 No Units Normal 10-20 [facility] Comment on above: Performed By: #### 2 917551, 9783868, 8383536, 2750438, 67205373, 2628600, 85157262 ####[facility] [address] [place] [address] Anion gap [Moles/Vol] 13 mmol/L Normal 6-16 [facility] Comment on above: Performed By: #### 2 870941, 6933206, 2175281, 9233987, 19917060, 9266157, 83141756 ####[facility] [address] [place] [address] Calcium [Mass/Vol] 9.1 mg/dL Normal 8.9-11.1 [facility] Comment on above: Performed By: #### 2 386287, 4304390, 8373427, 2347627, 01580167, 7454019, 16889147 ####[facility] [address] [place] [address] Chloride [Moles/Vol] 100 mmol/L Low 101-111 [facility] Comment on above: Performed By: #### 2 174838, 0525237, 9143711, 4135086, 49025496, 9594015, 00130752 ####[facility] [address] [place] [address] CO2 [Moles/Vol] 24 mmol/L Normal 21-31 [facility] Comment on above: Performed By: #### 2 521753, 4341314, 9104741, 2053289, 64381127, 5265225, 71630680 ####[facility] [address] [place] [address] Glucose [Mass/Vol] 129 mg/dL Normal 55-199 [facility] Comment on above: Result Comment: If t his glucose result represents a fasting glucose, interpretation should refer to the following reference range: 55-99 mg/dL Performed By: #### 2 898117, 2594780, 3515719, 5578015, 34481113, 9353741, 86731507 ####[facility] [address] [place] [address] Potassium [Moles/Vol] 3.8 mmol/L Normal 3.5-5.3 [facility] Comment on above: Performed By: #### 2 512642, 1006901, 6525005, 5758037, 92063232, 3758804, 54057347 ####[facility] [address] [place] [address] Sodium [Moles/Vol] 133 mmol/L Low 135-145 [facility] Comment on above: Performed By: #### 2 018921, 5615798, 1408915, 3520416, 44225594, 8386624, 17446740 ####[facility] [address] [place] [address] CBC w/ Auto Diffon Erythrocyte distribution width (RBC) [Ratio] 13.5 % Normal 10.9-14.2 [facility] Comment on above: Performed By: #### 2 746419, 2657208, 0096818, 5992240, 04050231, 3180631, 25801953 ####[facility] [address] [place] [address] Hematocrit (Bld) [Volume fraction] 38.5 % Normal 34.0-46.0 [facility] Comment on above: Performed By: #### 2 718739, 7815794, 4262339, 3296435, 16024280, 0361933, 39094470 ####[facility] [address] [place] [address] Hemoglobin (Bld) [Mass/Vol] 12.7 g/dL Normal 12.0-16.0 [facility] Comment on above: Performed By: #### 2 070618, 9096689, 5040198, 5502541, 45477351, 5971617, 58933578 ####[facility] [address] [place] [address] MCH (RBC) [Entitic mass] 29.7 pg Normal 27.0-34.0 [facility] Comment on above: Performed By: #### 2 881690, 9009374, 0213262, 2309316, 83206311, 9679248, 24194802 ####[facility] [address] [place] [address] MCHC (RBC) [Mass/Vol] 32.9 g/dL Normal 31.4-36.0 [facility] Comment on above: Performed By: #### 2 299981, 9218149, 3383615, 2919352, 07645326, 0287776, 62474598 ####[address] [address] MCV (RBC) [Entitic vol] 90.3 fL Normal 80.0-100.0 [facility] Comment on above: Performed By: #### 2 016898, 4244674, 3073667, 2718075, 67846200, 5417518, 41300598 ####[facility] [address] [place] [address] Platelet mean volume (Bld) [Entitic vol] 9.1 fL Normal 6.4-10.8 [facility] Comment on above: Performed By: #### 2 671485, 6514907, 5707218, 0521063, 02941547, 5439096, 29214226 ####[facility] [address] [place] [address] Platelets (Bld) [#/Vol] 183.0 E9/L Normal 150.0-500.0 [facility] Comment on above: Performed By: #### 2 051929, 3197445, 4322632, 2304535, 49791820, 7866817, 66370958 ####[facility] [address] [place] [address] RBC (Bld) [#/Vol] 4.3 E12/L Normal 4.3-5.9 [facility] Comment on above: Performed By: #### 2 296845, 4031737, 6656791, 1128148, 85316740, 7028761, 43474617 ####[facility] [address] [place] [address] WBC corrected for nucl RBC Auto (Bld) [#/Vol] 6.2 E9/L Normal 4.0-11.0 [facility] Comment on above: Performed By: #### 2 400666, 2292274, 0101070, 3712687, 64221231, 2981402, 56467046 ####[facility] [address] [place] [address] CHEMISTRYOrdered By: SYSTEM SYSTEM on 07-03-2023 Cholesterol [Mass/Vol] 145 mg/dL Normal 120 - 200 mg/dL [facility] Cholesterol in HDL [Mass/Vol] 43 mg/dL Invalid Interpretation Code [facility] Comment on above: Interpretive Data: H DL > or equal to 60 mg/dL: Low cardiovascular risk HDL < 40 mg/dL : High cardiovascular risk Cholesterol in LDL [Mass/Vol] 99 mg/dL Normal <=129mg/dL [facility] Cholesterol in VLDL [Mass/Vol] 17 mg/dL Normal 7 - 40 mg/dL [facility] Triglyceride [Mass/Vol] 85 mg/dL Normal <=149mg/dL [facility] Troponin I.cardiac [Mass/Vol] 27.10 pg/mL Normal 10.10 - 27.10 pg/mL [facility] Comment on above: Interpretive Data: T he 95% CI (Confidence Interval) PPV (Positive Predictive Value) for myocardial infarction in females is 38 pg/mL, in males 51 pg/mL. The results should be used in conjunction with clinical conditions of myocardial infarction. (Access High Sensitivity Troponin I Instructions For Use, [place], March 2018) TSH Qn 3.83 m[IU]/L Normal 0.34 - 5.60 mcIU/mL [facility] CHEMISTRYOrdered By: Dulce Maria Correa on 07-03-2023 HbA1c (Bld) [Mass fraction] 5.5 % Normal <=5.9% [facility] ChemAutoSS Consultation Noteon 07-03-20 Consultation Note Normal [facility] Comment on above: Result Comment: Elec tronically Signed By: Shell MCMAHON, Eb Yeh\.br\Date and Time Signed: 07/03/23 21:35 EST Consultation Note Normal [facility] Comment on above: Result Comment: Elec tronically Signed By: Cody RICHARDSON MD\.br\Date and Time Signed: 07/03/23 19:12 EST ED Clinical Summaryon 2022 ED Clinical Summary Normal [place] ED Note-Physicianon 07-03-20 ED Note-Physician Normal [facility] Comment on above: Result Comment: Elec tronically Signed By: Layton Crawford M.D.\.br\Date and Time Signed: 07/03/23 08:17 EST ED Patient Education Noteon 07-03-2023 ED Patient Education Note Normal [facility] ED Patient Summaryon 023 ED Patient Summary Normal [facility] Echo Transthoracic Completeo n 07-03-2023 Echo Transthoracic Complete Normal [facility] Hep Func Panelon 07-03-2023 Albumin [Mass/Vol] 3.8 g/dL Normal 3.3-5.0 [facility] Comment on above: Performed By: #### 2 499256, 6483541, 2913426, 3494558, 09780751, 2775801, 61888179 ####[facility] [address] [place] [address] Albumin/Globulin (S) [Mass conc ratio] 1.3 Normal 1.1-2.2 [facility] Comment on above: Performed By: #### 2 922781, 8551115, 2020412, 4362709, 51874216, 0295075, 71483717 ####[address] [place] [address] ALP [Catalytic activity/Vol] 58 Int._Unit/L Normal 21-98 [facility] Comment on above: Performed By: #### 2 765385, 5418143, 5369529, 9814314, 58728832, 4133784, 97712891 ####[address] [address] ALT No additional P-5'-P [Catalytic activity/Vol] 66 Int._Unit/L High 6-46 [facility] Comment on above: Performed By: #### 2 402859, 6622942, 7457928, 4134296, 24277273, 1087758, 63814186 ####[address] [address] AST [Catalytic activity/Vol] 81 Int._Unit/L High 5-43 [facility] Comment on above: Performed By: #### 2 107394, 9610224, 2223997, 3035655, 89387890, 7185870, 66480208 ####[address] [address] Bilirubin [Mass/Vol] 0.5 mg/dL Normal 0.0-1.1 [facility] Comment on above: Performed By: #### 2 829345, 9723072, 5488563, 6340772, 69691026, 4257244, 20478180 ####[address] [address] Bilirubin.direct [Mass/Vol] 0.1 mg/dL Normal 0.1-0.4 [facility] Comment on above: Performed By: #### 2 699127, 1251096, 1440011, 7840743, 79785539, 3893642, 27729579 ####[address] [address] Bilirubin.indirect [Mass or moles/Vol] 0.4 mg/dL Normal 0.1-0.9 [facility] Comment on above: Performed By: #### 2 129050, 4451781, 0590168, 9690243, 37729339, 7738469, 13002023 ####[facility] [address] [place] [address] Globulin (S) [Mass/Vol] 2.9 g/dL Normal 1.4-4.0 [facility] Comment on above: Performed By: #### 2 417323, 5491752, 7437510, 3555900, 61269035, 0324669, 65391233 ####[facility] [address] [place] [address] Protein [Mass/Vol] 6.7 g/dL Normal 6.0-7.8 [facility] Comment on above: Performed By: #### 2 039435, 6559761, 9943273, 8395678, 51599872, 1640260, 82916886 ####[facility] [address] [place] [address] DyjT4pmv 07-03-2023 HbA1c (Bld) [Mass fraction] 5.5 % Normal <=5.9 [facility] Comment on above: Performed By: #### 2 224326, 91193112, 5782151, 570353369 ####[facility] [address] [place] [address] Interdisciplinary Note - Tico e Manageron 07-03-2023 Interdisciplinary Note - Third Officer [facility] Comment on above: Result Comment: Elec tronically Signed By: Brigitte Nazario\.br\Date and Time Signed: 07/03/23 13:05 EST Lipid Panelon 07-03-2023 Cholesterol [Mass/Vol] 145 mg/dL Normal 120-200 [facility] Comment on above: Performed By: #### 2 667696, 36705466, 6343783, 016950624 ####[facility] [address] [place] [address] Cholesterol in HDL [Mass/Vol] 43 mg/dL Invalid Interpretation Code [facility] Comment on above: Result Comment: HDL > or equal to 60 mg/dL: Low cardiovascular riskHDL < 40 mg/dL : High cardiovascular risk Performed By: #### 2 187327, 35568940, 5794061, 383899186 ####[facility] [address] [place] [address] Cholesterol in LDL [Mass/Vol] 99 mg/dL Normal <=129 [facility] Comment on above: Performed By: #### 2 466160, 23081947, 2834942, 246229501 ####[facility] [address] [address] Cholesterol in VLDL [Mass/Vol] 17 mg/dL Normal 7-40 [facility] Comment on above: Performed By: #### 2 296493, 49170775, 2344049, 501598333 ####[facility] [address] [place] [address] Triglyceride [Mass/Vol] 85 mg/dL Normal <=149 [facility] Comment on above: Performed By: #### 2 283473, 38880674, 2945097, 733673410 ####[facility] [address] [place] [address] Magnesiumon 07-03-2023 Magnesium [Mass/Vol] 2.0 mg/dL Normal 1.3-2.4 [facility] Comment on above: Performed By: #### 2 244318, 5674678, 0693324, 9717717, 46833346, 0507821, 23263637 ####[facility] [address] [place] [address] Message from Medicareon 06-15 Message from Medicare [id number]# 1.00TIFF Normal [facility] Monitor Recordon 07-03-2023 Monitor Record [id number]# 1.00TIFF Normal [facility] Monitor Record [id number]# 1.00TIFF Normal [facility] Monitor Record [id number]# 1.00TIFF Normal [facility] PT & PTTon 07-03-2023 aPTT Coag (PPP) [Time] 30.2 second(s) Normal 25.1-36.5 [facility] Comment on above: Result Comment: Para meter 15 days - 4 weeks 1 - 5 months 6 - 11 months 1 - 5 years 6 - 10 years 11 - 17 years PTT Mean: 35.4 (27.6-45.6) Mean: 33.5 (24.8-40.7) Mean: 32.4 (25.1-40.7) Mean: 31.6 (24.0-39.2) Mean: 31.6 (26.9-38.7) Mean: 31.0 (24.6-38.4) Pediatric Reference ranges were obtained from a study by keith Fam al. prepared from 1437 samples obtained at 7 different centers using the same coagulation reagent and instrumentation as [facility]. Currently there are no coagulation studies available worldwide for children to 14 days, and no normal ranges. Heparin therapeutic range (represented by Anti-Factor Xa activity of 0.2 - 0.4 U/mL) corresponds to PTT of 56.6 - 109.0 sec. Performed By: #### 1 [id number] ####[facility] [address] [place] [address] INR Coag (PPP) [Relative time] 1.2 {INR} Invalid Interpretation Code [facility] Comment on above: Result Comment: INR results are specifically intended to assess patients stabilized on long-term Anticoagulation therapy suggested INR?s ?Less Intensive Anticoagulation? 2.0 ? 3.0Conventional Range 3.0 ? 4.5 Performed By: #### 1 9234185 ####[facility] [address] [place] [address] PT Coag (PPP) [Time] 13.2 second(s) High 9.4-12.5 [facility] Comment on above: Result Comment: 15 d ays - 4 weeks 1 - 5 months 6 -11 months 1- 5 years 6-10 years 11 -17 years Mean: 11.2 (9.5-12.6) Mean: 11.0 (9.7-12.8) Mean: 11.0 (9.8-13.0) Mean: 11.3 (9.9-13.4) Mean: 11.7 (10.0-14.6) Mean: 11.8 (10.0 - 14.1) Pediatric Reference ranges were obtained from a study by keith Fam al. prepared from 1437 samples obtained at 7 different centers using the same coagulation reagent and instrumentation as [facility]. Currently there are no coagulation studies available worldwide for children to 14 days, and no normal ranges. Performed By: #### 1 [id number] ####[facility] [address] [place] [address] Progress Note-Physicianon Progress Note-Physician Normal [facility] Comment on above: Result Comment: Elec tronically Signed By: JAZMÍN MCMAHON, Yosifo\.br\Date and Time Signed: 07/03/23 10:57 EST TSH With T4fr Reflexon 07-03 TSH Qn 3.83 m[IU]/L Normal 0.34-5.60 [facility] Comment on above: Performed By: #### 2 897744, 58107106, 9238364, 303444521 ####[facility] [address] [place] [address] Troponinon 07-03-2023 Troponin I.cardiac [Mass/Vol] 27.10 pg/mL Normal 10.10-27.10 [facility] Comment on above: Result Comment: The 95% CI (Confidence Interval) PPV (Positive Predictive Value) for myocardial infarction in females is 38 pg/mL, in males 51 pg/mL. The results should be used in conjunction with clinical conditions of myocardial infarction.(Access High Sensitivity Troponin I Instructions For Use, [place], March 2018) Performed By: #### 2 [id number], [id number], 5702596, [id number] ####[facility] [address] [place] [address] Troponin 0 Hr.on 07-03-2023 Troponin I.cardiac [Mass/Vol] 27.30 pg/mL High 10.10-27.10 [facility] Comment on above: Result Comment: The 95% CI (Confidence Interval) PPV (Positive Predictive Value) for myocardial infarction in females is 38 pg/mL, in males 51 pg/mL. The results should be used in conjunction with clinical conditions of myocardial infarction.(Access High Sensitivity Troponin I Instructions For Use, [employer], March 2018) Performed By: #### 2 703119, 1346016, 0753934, 8143978, 95716225, 5058411, [id number] ####[facility] [address] [place] [address] Troponin 3 Hr.Ordered By: [employer] on 07-03-2023 Troponin I.cardiac [Mass/Vol] 27.70 pg/mL High 10.10-27.10 [facility] Comment on above: Interpretive Data: T he 95% CI (Confidence Interval) PPV (Positive Predictive Value) for myocardial infarction in females is 38 pg/mL, in males 51 pg/mL. The results should be used in conjunction with clinical conditions of myocardial infarction. (Access High Sensitivity Troponin I Instructions For Use, [employer], March 2018) Result Comment: The 95% CI (Confidence Interval) PPV (Positive Predictive Value) for myocardial infarction in females is 38 pg/mL, in males 51 pg/mL. The results should be used in conjunction with clinical conditions of myocardial infarction.(Access High Sensitivity Troponin I Instructions For Use, [employer], March 2018) Performed By: #### 1 [id number] ####[facility] [address] [place] [address] UA With Cult Reflexon 2022 Bacteria LM Ql (Urine sed) TRACE Normal Trace [facility] Comment on above: Order Comment: Urina ry Catheter Insertion triggered Urinalysis With Culture Reflex order by discern. Performed By: #### 1 [id number] ####[facility] [address] [place] [address] Bilirubin Ql (U) Negative Normal Negative [facility] Comment on above: Order Comment: Urina ry Catheter Insertion triggered Urinalysis With Culture Reflex order by discern. Performed By: #### 1 [id number] ####[facility] [address] [place] [address] Clarity (U) CLEAR Normal Clear [facility] Comment on above: Order Comment: Urina ry Catheter Insertion triggered Urinalysis With Culture Reflex order by discern. Performed By: #### 1 [id number] ####[facility] [address] [place] [address] Color (U) YELLOW Normal Yellow [facility] Comment on above: Order Comment: Urina ry Catheter Insertion triggered Urinalysis With Culture Reflex order by discern. Performed By: #### 1 [id number] ####[address] [address] Epithelial cells.squamous LM.HPF (Urine sed) [#/Area] 9-10 Normal 0-2 [facility] Comment on above: Order Comment: Urina ry Catheter Insertion triggered Urinalysis With Culture Reflex order by discern. Performed By: #### 1 [id number] ####[facility] [address] [place] [address] Glucose Test strip (U) [Mass/Vol] Negative Normal Negative [facility] Comment on above: Order Comment: Urina ry Catheter Insertion triggered Urinalysis With Culture Reflex order by discern. Performed By: #### 1 [id number] ####[facility] [address] [place] [address] Hemoglobin Ql (U) TRACE Abnormal Negative [facility] Comment on above: Order Comment: Urina ry Catheter Insertion triggered Urinalysis With Culture Reflex order by discern. Performed By: #### 1 6976566 ####[facility] [address] [place] [address] Ketones (U) [Mass/Vol] TRACE Invalid Interpretation Code Negative [facility] Comment on above: Order Comment: Urina ry Catheter Insertion triggered Urinalysis With Culture Reflex order by discern. Performed By: #### 1 3363218 ####[facility] [address] [place] [address] [place].plasma/[place] .RBC (Bld) [Mass ratio] 0-3 Normal 0-3 [facility] Comment on above: Order Comment: Urina ry Catheter Insertion triggered Urinalysis With Culture Reflex order by discern. Performed By: #### 1 0943878 ####[facility] [address] [place] [address] Mucus Ql (Urine sed) TRACE Normal [facility] Comment on above: Order Comment: Urina ry Catheter Insertion triggered Urinalysis With Culture Reflex order by discern. Performed By: #### 1 [id number] ####[address] [address] Nitrite Ql (U) Negative Normal Negative [facility] Comment on above: Order Comment: Urina ry Catheter Insertion triggered Urinalysis With Culture Reflex order by discern. Performed By: #### 1 [id number] ####[address] [address] pH (U) 5.5 [pH] Invalid Interpretation Code 5.0-9.0 [facility] Comment on above: Order Comment: Urina ry Catheter Insertion triggered Urinalysis With Culture Reflex order by discern. Performed By: #### 1 [id number] ####[address] [address] Protein (U) [Mass/Vol] Negative Normal Negative [facility] Comment on above: Order Comment: Urina ry Catheter Insertion triggered Urinalysis With Culture Reflex order by discern. Performed By: #### 1 4089294 ####[address] [address] Specific gravity (U) [Rel density] 1.025 Invalid Interpretation Code 1.005-1.030 [facility] Comment on above: Order Comment: Urina ry Catheter Insertion triggered Urinalysis With Culture Reflex order by discern. Performed By: #### 1 9841468 ####[address] [address] Type of Urine collection method Robles Normal [facility] Comment on above: Order Comment: Urina ry Catheter Insertion triggered Urinalysis With Culture Reflex order by discern. Performed By: #### 1 [id number] ####[address] [place] [address] Urobilinogen Qn (U) 0.2 {Judith'U}/dL Normal 0.0-1.0 [facility] Comment on above: Order Comment: Urina ry Catheter Insertion triggered Urinalysis With Culture Reflex order by discern. Performed By: #### 1 0679821 ####[address] [address] WBC Auto Ql (U) Negative Normal Negative [facility] Comment on above: Order Comment: Urina ry Catheter Insertion triggered Urinalysis With Culture Reflex order by discern. Performed By: #### 1 3667698 ####[address] [address] WBC LM.HPF (Urine sed) [#/Area] 0-5 Normal 0-5 [facility] Comment on above: Order Comment: Urina ry Catheter Insertion triggered Urinalysis With Culture Reflex order by discern. Performed By: #### 1 1582724 ####[address] [address] XR Chest Single Viewon 07-03 XR Chest Single View Normal [facility] eGFRon 07-03-2023 GFR/1.73 sq M.predicted among non-blacks MDRD (S/P/Bld) [Vol rate/Area] 59 mL/min/1.73 m2 Normal >=59 [facility] Comment on above: Order Comment: Order added by Discern Expert. Result Comment: Washtub Worker luis kidney disease could be indicated at eGFR's of less than 60 mL/min/1.73m2. Kidney failure is indicated at less than 15 mL/min/1.73m2. Performed By: #### 2 585672, 3498661, 1288293, 9942669, 21193502, 1626807, 02413229 ####[facility] [address] [place] [address] CHEMISTRYOrdered By: SYSTEM SYSTEM on 07-02-2023 Albumin [Mass/Vol] 3.8 g/dL Normal 3.3 - 5.0 gm/dL [facility] Albumin/Globulin [Mass ratio] 1.3 {ratio} Normal 1.1 - 2.2 [facility] ALP [Catalytic activity/Vol] 58 [iU]/d Normal 21 - 98 Int._Unit/L [facility] ALT No additional P-5'-P [Catalytic activity/Vol] 66 [iU]/d High 6 - 46 Int._Unit/L [facility] Anion gap [Moles/Vol] 13 mmol/L Normal 6 - 16 mEq/L [facility] AST [Catalytic activity/Vol] 81 [iU]/d High 5 - 43 Int._Unit/L [facility] Bilirubin [Mass/Vol] 0.5 mg/dL Normal 0.0 - 1 .1 mg/dL [facility] Bilirubin.direct [Mass/Vol] 0.1 mg/dL Normal 0.1 - 0.4 mg/dL [facility] Bilirubin.indirect [Mass or moles/Vol] 0.4 mg/dL Normal 0.1 - 0.9 mg/dL [facility] Calcium [Mass/Vol] 9.1 mg/dL Normal 8.9 - 11. 1 mg/dL [facility] Chloride [Moles/Vol] 100 mmol/L Low 101 - 1 11 mmol/L [facility] CO2 [Moles/Vol] 24 mmol/L Normal 21 - 31 mmol/L [facility] Creatinine [Mass/Vol] 1.0 mg/dL Normal 0.5 - 1.3 mg/dL [facility] GFR/1.73 sq M.predicted among non-blacks MDRD (S/P/Bld) [Vol rate/Area] 59 mL/min/1.73 m2 Normal >=59mL/min/1 .73 m2 [facility] S Comment on above: Interpretive Data: C hronic kidney disease could be indicated at eGFR's of less than 60 mL/min/1.73m2. Kidney failure is indicated at less than 15 mL/min/1.73m2. Globulin (S) [Mass/Vol] 2.9 g/dL Normal 1.4 - 4.0 gm/dL [facility] Glucose [Mass/Vol] 129 mg/dL Normal 55 - 199 mg/dL [facility] Comment on above: Interpretive Data: I f this glucose result represents a fasting glucose, interpretation should refer to the following reference range: 55-99 mg/dL Magnesium [Mass/Vol] 2.0 mg/dL Normal 1.3 - 2 .4 mg/dL [facility] Potassium [Moles/Vol] 3.8 mmol/L Normal 3.5 - 5.3 mmol/L [facility] Protein [Mass/Vol] 6.7 g/dL Normal 6.0 - 7.8 gm/dL [facility] Sodium [Moles/Vol] 133 mmol/L Low 135 - 145 mmol/L [facility] Troponin I.cardiac [Mass/Vol] 27.30 pg/mL High 10.10 - 27.10 pg/mL [facility] Comment on above: Interpretive Data: T he 95% CI (Confidence Interval) PPV (Positive Predictive Value) for myocardial infarction in females is 38 pg/mL, in males 51 pg/mL. The results should be used in conjunction with clinical conditions of myocardial infarction. (Access High Sensitivity Troponin I Instructions For Use, [place], March 2018) Urea nitrogen [Mass/Vol] 13 mg/dL Normal 5 - 21 mg/dL [facility] Urea nitrogen/Creatinine [Mass ratio] 13 mg/mg Normal 10 - 20 [facility] COAGULATIONOrdered By: Lan Eastman on 07-02-2023 aPTT Coag (PPP) [Time] 30.2 s Normal 25.1 - 36.5 second(s) [facility] Auto Coag Comment on above: Interpretive Data: P arameter 15 days - 4 weeks 1 - 5 months 6 - 11 months 1 - 5 years 6 - 10 years 11 - 17 years PTT Mean: 35.4 (27.6-45.6) Mean: 33.5 (24.8-40.7) Mean: 32.4 (25.1-40.7) Mean: 31.6 (24.0-39.2) Mean: 31.6 (26.9-38.7) Mean: 31.0 (24.6-38.4) Pediatric Reference ranges were obtained from a study by Roel Loco et al. prepared from 1437 samples obtained at 7 different centers using the same coagulation reagent and instrumentation as [facility]. Currently there are no coagulation studies available worldwide for children to 14 days, and no normal ranges. Heparin therapeutic range (represented by Anti-Factor Xa activity of 0.2 - 0.4 U/mL) corresponds to PTT of 56.6 - 109.0 sec. INR Coag (PPP) [Relative time] 1.2 {INR} Invalid Interpretation Code [facility] Comment on above: Interpretive Data: I NR results are specifically intended to assess patients stabilized on long-term Anticoagulation therapy suggested INR s Less Intensive Anticoagulation 2.0 3.0 Conventional Range 3.0 4.5 PT Coag (PPP) [Time] 13.2 s High 9.4 - 1 2.5 second(s) [facility] Comment on above: Interpretive Data: 1 5 days - 4 weeks 1 - 5 months 6 -11 months 1-5 years 6-10 years 11 -17 years Mean: 11.2 (9.5-12.6) Mean: 11.0 (9.7-12.8) Mean: 11.0 (9.8-13.0) Mean: 11.3 (9.9-13.4) Mean: 11.7 (10.0-14.6) Mean: 11.8 (10.0 - 14.1) Pediatric Reference ranges were obtained from a study by Roel Looc et al. prepared from 1437 samples obtained at 7 different centers using the same coagulation reagent and instrumentation as [facility]. Currently there are no coagulation studies available worldwide for children to 14 days, and no normal ranges. Consent for Treatmenton 06-14 Consent for Treatment [id number] [facility] [id number] Normal [facility] HEMATOLOGYOrdered By: SYSTEM SYSTEM on 07-02-2023 Basophils/100 WBC (Bld) 0.3 % Normal 0.0 - 2.0 % [facility] HemeAutoSS Basophils/Leukocytes Auto (Bld) [Pure # fraction] 0.0 E9/L Normal 0.0 - 0.2 E9/L [facility] HemeAutoSS Eosinophils/100 WBC (Bld) 0.0 % Normal 0.0 - 8.0 % [facility] HemeAutoSS Eosinophils/Leukocytes Auto (Bld) [Pure # fraction] 0.0 E9/L Normal 0.0 - 0.5 E9/L [facility] HemeAutoSS Lymphocytes/100 WBC (Bld) 15.3 % Normal 14.0 - 50.0 % [facility] HemeAutoSS Lymphocytes/Leukocytes Auto (Bld) [Pure # fraction] 0.9 E9/L Low 1.0 - 4.0 E9/L [facility] HemeAutoSS Monocytes/100 WBC (Bld) 7.7 % Normal 4.0 - 14.0 % [facility] HemeAutoSS Monocytes/Leukocytes Auto (Bld) [Pure # fraction] 0.5 E9/L Normal 0.2 - 1.0 E9/L [facility] HemeAutoSS Neutrophils/100 WBC (Bld) 76.7 % High 36.0 - 75.0 % [facility] HemeAutoSS Neutrophils/Leukocytes Auto (Bld) [Pure # fraction] 4.7 E9/L Normal 2.0 - 7.5 E9/L [facility] HemeAutoSS HEMATOLOGYOrdered By: aLn Eastman on 07-02-2023 Erythrocyte distribution width (RBC) [Ratio] 13.5 % Normal 10.9 - 14.2 % [facility] HemeAutoSS Hematocrit (Bld) [Volume fraction] 38.5 % Normal 34.0 - 46.0 % [facility] HemeAutoSS Hemoglobin (Bld) [Mass/Vol] 12.7 g/dL Normal 12.0 - 16.0 gm/dL [facility] HemeAutoSS MCH (RBC) [Entitic mass] 29.7 pg Normal 27.0 - 34.0 pg [facility] HemeAutoSS MCHC (RBC) [Mass/Vol] 32.9 g/dL Normal 31.4 - 36.0 gm/dL [facility] HemeAutoSS MCV (RBC) [Entitic vol] 90.3 fL Normal 80.0 - 100.0 fL [facility] HemeAutoSS Platelet mean volume (Bld) [Entitic vol] 9.1 fL Normal 6.4 - 10.8 fL [facility] HemeAutoSS Platelets (Bld) [#/Vol] 183.0 E9/L Normal 150.0 - 500.0 E9/L [facility] HemeAutoSS RBC (Bld) [#/Vol] 4.3 E12/L Normal 4.3 - 5.9 E12/L [facility] HemeAutoSS WBC corrected for nucl RBC Auto (Bld) [#/Vol] 6.2 E9/L Normal 4.0 - 11.0 E9/L [facility] HemeAutoSS URINALYSISOrdered By: Lan Eastman on 07-02-2023 Bacteria LM Ql (Urine sed) Trace /HPF Normal Trace/HPF [facility] UA Auto SS Bilirubin Ql (U) Negative (07/02/23 10:18 PM) Normal Negative [facility]A Auto SS Clarity (U) Clear (07/02/23 10:18 PM) Normal Clear [facility]A Auto SS Color (U) Yellow (07/02/23 10:18 PM) Normal Yellow [facility]A Auto SS Epithelial cells.squamous LM.HPF (Urine sed) [#/Area] 9-10 /HPF Normal 0-2/HPF [facility] UA Aut o SS Glucose Test strip (U) [Mass/Vol] Negative (07/02/23 10:18 PM) Normal Negative [facility] UA Auto SS Hemoglobin Ql (U) Trace *ABN* (07/02/23 10:18 PM) Invalid Interpretation Code Negative [facility] UA Auto SS Ketones (U) [Mass/Vol] Trace *NA* (07/02/23 10:18 PM) Invalid Interpretation Code Negative [facility] UA Auto SS [place].plasma/[place] .RBC (Bld) [Mass ratio] 0-3 /HPF Normal 0-3/HPF [facility]A Auto SS Mucus Ql (Urine sed) Trace (07/02/23 10:18 PM) Normal [facility] UA Auto SS Nitrite Ql (U) Negative (07/02/23 10:18 PM) Normal Negative [facility]A Auto SS pH (U) 5.5 *NA* (07/02/23 10:18 PM) Invalid Interpretation Code 5.0 - 9.0 [facility]A Auto SS Protein (U) [Mass/Vol] Negative (07/02/23 10:18 PM) Normal Negative [facility] UA Auto SS Specific gravity (U) [Rel density] 1.025 *NA* (07/02/23 10:18 PM) Invalid Interpretation Code 1.005 - 1.030 [facility] UA Auto SS UA Spec Desc Robles (07/02/23 10:18 PM) Normal [facility] UA Auto SS Urobilinogen Qn (U) 0.5187501 {Judith'U}/dL Normal 0.0 - 1.0 EU/dL [facility] UA Auto SS WBC Auto Ql (U) Negative (07/02/23 10:18 PM) Normal Negative [facility] UA Auto SS WBC LM.HPF (Urine sed) [#/Area] 0-5 /HPF Normal 0-5/HPF [facility] UA Auto SS CT Abdomen/Pelvis w/o Contra ston 07-01-2023 CT Abdomen/Pelvis w/o Contrast Normal [facility] Discharge Instructionson Discharge Instructions [id number] Normal [facility] ED Clinical Summaryon 2022 ED Clinical Summary Normal [facility] ED Note-Physicianon 07-01-20 ED Note-Physician Normal [facility] Comment on above: Result Comment: Elec tronically Signed By: Koby Masterson DO\.br\Date and Time Signed: 07/01/23 01:03 EST ED Patient Education Noteon 07-01-2023 ED Patient Education Note Normal [facility] ED Patient Summaryon 023 ED Patient Summary Normal [facility] RAD - Preliminary Cat Scan R eporton 07-01-2023 RAD - Preliminary Cat Scan Report [id number] Normal [facility] Auto Diffon 06-30-2023 Basophils/100 WBC (Bld) 0.8 % Normal 0.0-2.0 [facility] Comment on above: Order Comment: Order Added by Discern Expert. Performed By: #### 2 051748, 47302617, 0616300, 2902212, 8977376, 3655675 ####[facility] [address] [place] [address] Basophils/Leukocytes Auto (Bld) [Pure # fraction] 0.0 E9/L Normal 0.0-0.2 [facility] Comment on above: Order Comment: Order Added by Discern Expert. Performed By: #### 2 649935, 73912356, 0346238, 2957751, 6644789, 4886908 ####[facility] [address] [place] [address] Eosinophils/100 WBC (Bld) 0.2 % Normal 0.0-8.0 [facility] Comment on above: Order Comment: Order Added by Discern Expert. Performed By: #### 2 677648, 34722859, 1549744, 5410231, 1253062, 1779655 ####[address] [place] [address] Eosinophils/Leukocytes Auto (Bld) [Pure # fraction] 0.0 E9/L Normal 0.0-0.5 [facility] Comment on above: Order Comment: Order Added by Discern Expert. Performed By: #### 2 155769, 44110884, 5347473, 5331217, 5538475, 9066725 ####[address] [place] [address] Lymphocytes/100 WBC (Bld) 26.7 % Normal 14.0-50.0 [facility] Comment on above: Order Comment: Order Added by Discern Expert. Performed By: #### 2 558174, 88052528, 1260760, 5069891, 1462400, 8023467 ####[address] [address] Lymphocytes/Leukocytes Auto (Bld) [Pure # fraction] 1.2 E9/L Normal 1.0-4.0 [facility] Comment on above: Order Comment: Order Added by Discern Expert. Performed By: #### 2 674790, 84992691, 5620544, 9124719, 3904561, 3999093 ####[address] [place] [address] Monocytes/100 WBC (Bld) 9.8 % Normal 4.0-14.0 [facility] Comment on above: Order Comment: Order Added by Discern Expert. Performed By: #### 2 287759, 21600485, 6624459, 3528819, 6887327, 1626492 ####[address] [address] Monocytes/Leukocytes Auto (Bld) [Pure # fraction] 0.4 E9/L Normal 0.2-1.0 [facility] Comment on above: Order Comment: Order Added by Discern Expert. Performed By: #### 2 997541, 35169922, 9564556, 0559866, 9357872, 7188341 ####[facility] [address] [place] [address] Neutrophils/100 WBC (Bld) 62.5 % Normal 36.0-75.0 [facility] Comment on above: Order Comment: Order Added by Discern Expert. Performed By: #### 2 632184, 49657728, 5279159, 8417089, 1825699, 2318991 ####[facility] [address] [place] [address] Neutrophils/Leukocytes Auto (Bld) [Pure # fraction] 2.7 E9/L Normal 2.0-7.5 [facility] Comment on above: Order Comment: Order Added by Discern Expert. Performed By: #### 2 669037, 69537142, 2793868, 3040856, 6656262, 0804678 ####[facility] [address] [place] [address] BMPon 06-30-2023 Creatinine [Mass/Vol] 0.8 mg/dL Normal 0.5-1.3 [facility] Comment on above: Performed By: #### 2 473963, 22962802, 5300677, 4006334, 6778569, 8909818 ####[facility] [address] [place] [address] Urea nitrogen [Mass/Vol] 12 mg/dL Normal 5-21 [facility] Comment on above: Performed By: #### 2 783225, 54994350, 9441218, 1665090, 5656806, 1046053 ####[facility] [address] [place] [address] Urea nitrogen/Creatinine [Mass ratio] 15 No Units Normal 10-20 [facility] Comment on above: Performed By: #### 2 665727, 98362407, 2044262, 5982279, 4720378, 0898506 ####[facility] [address] [place] [address] Anion gap [Moles/Vol] 13 mmol/L Normal 6-16 [facility] Comment on above: Performed By: #### 2 341570, 69690383, 4968129, 3290599, 8509287, 6022273 ####[facility] [address] [place] [address] Calcium [Mass/Vol] 9.5 mg/dL Normal 8.9-11.1 [facility] Comment on above: Performed By: #### 2 436562, 37612455, 9587551, 6860990, 7178427, 2494056 ####[facility] [address] [place] [address] Chloride [Moles/Vol] 103 mmol/L Normal 101-111 [facility] Comment on above: Performed By: #### 2 743238, 15421645, 7453784, 6289522, 8287293, 0127068 ####[facility] [address] [place] [address] CO2 [Moles/Vol] 27 mmol/L Normal 21-31 [facility] Comment on above: Performed By: #### 2 600101, 32594269, 9688782, 7375961, 3060695, 5952150 ####[facility] [address] [place] [address] Glucose [Mass/Vol] 110 mg/dL Normal 55-199 [facility] Comment on above: Result Comment: If t his glucose result represents a fasting glucose, interpretation should refer to the following reference range: 55-99 mg/dL Performed By: #### 2 400666, 83425154, 8684849, 5212344, 3231533, 9844894 ####[facility] [address] [place] [address] Potassium [Moles/Vol] 4.1 mmol/L Normal 3.5-5.3 [facility] Comment on above: Performed By: #### 2 367296, 52931051, 5748337, 7031769, 5163158, 3334086 ####[facility] [address] [place] [address] Sodium [Moles/Vol] 139 mmol/L Normal 135-145 [facility] Comment on above: Performed By: #### 2 961941, 25809326, 9777800, 3290926, 9510412, 1137705 ####[facility] [address] [place] [address] CBC w/ Auto Diffon 3 Erythrocyte distribution width (RBC) [Ratio] 13.7 % Normal 10.9-14.2 [facility] Comment on above: Performed By: #### 2 227744, 69774698, 2131299, 4316887, 1403627, 4804118 ####[facility] [address] [place] [address] Hematocrit (Bld) [Volume fraction] 38.0 % Normal 34.0-46.0 [facility] Comment on above: Performed By: #### 2 651288, 06377999, 6708301, 0521681, 8465161, 6759229 ####[facility] [address] [place] [address] Hemoglobin (Bld) [Mass/Vol] 12.5 g/dL Normal 12.0-16.0 [facility] Comment on above: Performed By: #### 2 911816, 86531710, 4589350, 2821338, 9434508, 2271447 ####[facility] [address] [place] [address] MCH (RBC) [Entitic mass] 29.9 pg Normal 27.0-34.0 [facility] Comment on above: Performed By: #### 2 433478, [id number], 1995286, 3564524, 0462362, 6724253 ####[facility] [address] [place] [address] MCHC (RBC) [Mass/Vol] 32.9 g/dL Normal 31.4-36.0 [facility] Comment on above: Performed By: #### 2 039091, [id number], 7625181, 4573441, 8898983, 9374942 ####[address] [place] [address] MCV (RBC) [Entitic vol] 90.9 fL Normal 80.0-100.0 [facility] Comment on above: Performed By: #### 2 323796, [id number], 8101786, 6538334, 8100003, 9551943 ####[address] [address] Platelet mean volume (Bld) [Entitic vol] 8.7 fL Normal 6.4-10.8 [facility] Comment on above: Performed By: #### 2 058108, 96245756, 1098114, 3342810, 7101885, 8128981 ####[address] [address] Platelets (Bld) [#/Vol] 184.0 E9/L Normal 150.0-500.0 [facility] Comment on above: Performed By: #### 2 205801, 85960394, 7448815, 6599597, 9180780, 7229522 ####[address] [address] RBC (Bld) [#/Vol] 4.2 E12/L Low 4.3-5.9 [facility] Comment on above: Performed By: #### 2 964274, 43593429, 4681976, 5155515, 3734930, 8214288 ####[address] [address] WBC corrected for nucl RBC Auto (Bld) [#/Vol] 4.4 E9/L Normal 4.0-11.0 [facility] Comment on above: Performed By: #### 2 780701, 51994259, 9575058, 7982943, 2515638, 3655160 ####[address] [address] CHEMISTRYOrdered By: SYSTEM SYSTEM on 06-30-2023 Albumin [Mass/Vol] 3.8 g/dL Normal 3.3 - 5.0 gm/dL [facility] Albumin/Globulin [Mass ratio] 1.3 {ratio} Normal 1.1 - 2.2 [facility] ALP [Catalytic activity/Vol] 56 [iU]/d Normal 21 - 98 Int._Unit/L [facility] ALT No additional P-5'-P [Catalytic activity/Vol] 50 [iU]/d High 6 - 46 Int._Unit/L [facility] Anion gap [Moles/Vol] 13 mmol/L Normal 6 - 16 mEq/L F [facility] AST [Catalytic activity/Vol] 45 [iU]/d High 5 - 43 Int._Unit/L [facility] Bilirubin [Mass/Vol] 0.5 mg/dL Normal 0.0 - 1 .1 mg/dL [facility] Bilirubin.direct [Mass/Vol] mg/dL Normal 0.1 - 0.4 mg/dL [facility] Bilirubin.indirect [Mass or moles/Vol] Unable to Calculate mg/dL Invalid Interpretation Code 0.1 - 0.9 mg/dL [facility] Calcium [Mass/Vol] 9.5 mg/dL Normal 8.9 - 11. 1 mg/dL [facility] Chloride [Moles/Vol] 103 mmol/L Normal 101 - 1 11 mmol/L [facility] CO2 [Moles/Vol] 27 mmol/L Normal 21 - 31 mmol/L [facility] Creatinine [Mass/Vol] 0.8 mg/dL Normal 0.5 - 1.3 mg/dL [facility] GFR/1.73 sq M.predicted among non-blacks MDRD (S/P/Bld) [Vol rate/Area] 77 mL/min/1.73 m2 Normal >=59mL/min/1 .73 m2 [facility] Comment on above: Interpretive Data: C hronic kidney disease could be indicated at eGFR's of less than 60 mL/min/1.73m2. Kidney failure is indicated at less than 15 mL/min/1.73m2. Globulin (S) [Mass/Vol] 3.0 g/dL Normal 1.4 - 4.0 gm/dL [facility] Glucose [Mass/Vol] 110 mg/dL Normal 55 - 199 mg/dL [facility] Comment on above: Interpretive Data: I f this glucose result represents a fasting glucose, interpretation should refer to the following reference range: 55-99 mg/dL Lipase [Catalytic activity/Vol] 31 U/L Normal 13 - 58 unit/L [facility] Potassium [Moles/Vol] 4.1 mmol/L Normal 3.5 - 5.3 mmol/L [facility] Protein [Mass/Vol] 6.8 g/dL Normal 6.0 - 7.8 gm/dL [facility] Sodium [Moles/Vol] 139 mmol/L Normal 135 - 145 mmol/L [facility] Urea nitrogen [Mass/Vol] 12 mg/dL Normal 5 - 21 mg/dL [facility] Urea nitrogen/Creatinine [Mass ratio] 15 mg/mg Normal 10 - 20 [facility] Consent for Treatmenton 06-14 Consent for Treatment [id number]#1 .00TIFF Normal [facility] Consent for Treatment [id number]#1 .00TIFF [facility] HEMATOLOGYOrdered By: SYSTEM SYSTEM on 06-30-2023 Basophils/100 WBC (Bld) 0.8 % Normal 0.0 - 2.0 % [facility] HemeAutoSS Basophils/Leukocytes Auto (Bld) [Pure # fraction] 0.0 E9/L Normal 0.0 - 0.2 E9/L [facility] HemeAutoSS Eosinophils/100 WBC (Bld) 0.2 % Normal 0.0 - 8.0 % [facility] HemeAutoSS Eosinophils/Leukocytes Auto (Bld) [Pure # fraction] 0.0 E9/L Normal 0.0 - 0.5 E9/L [facility] HemeAutoSS Lymphocytes/100 WBC (Bld) 26.7 % Normal 14.0 - 50.0 % [facility] HemeAutoSS Lymphocytes/Leukocytes Auto (Bld) [Pure # fraction] 1.2 E9/L Normal 1.0 - 4.0 E9/L [facility] HemeAutoSS Monocytes/100 WBC (Bld) 9.8 % Normal 4.0 - 14.0 % [facility] HemeAutoSS Monocytes/Leukocytes Auto (Bld) [Pure # fraction] 0.4 E9/L Normal 0.2 - 1.0 E9/L [facility] HemeAutoSS Neutrophils/100 WBC (Bld) 62.5 % Normal 36.0 - 75.0 % [facility] HemeAutoSS Neutrophils/Leukocytes Auto (Bld) [Pure # fraction] 2.7 E9/L Normal 2.0 - 7.5 E9/L [facility] HemeAutoSS HEMATOLOGYOrdered By: Lan Eastman on 06-30-2023 Erythrocyte distribution width (RBC) [Ratio] 13.7 % Normal 10.9 - 14.2 % [facility] HemeAutoSS Hematocrit (Bld) [Volume fraction] 38.0 % Normal 34.0 - 46.0 % [facility] HemeAutoSS Hemoglobin (Bld) [Mass/Vol] 12.5 g/dL Normal 12.0 - 16.0 gm/dL [facility] HemeAutoSS MCH (RBC) [Entitic mass] 29.9 pg Normal 27.0 - 34.0 pg [facility] HemeAutoSS MCHC (RBC) [Mass/Vol] 32.9 g/dL Normal 31.4 - 36.0 gm/dL [facility] HemeAutoSS MCV (RBC) [Entitic vol] 90.9 fL Normal 80.0 - 100.0 fL [facility] HemeAutoSS Platelet mean volume (Bld) [Entitic vol] 8.7 fL Normal 6.4 - 10.8 fL [facility] HemeAutoSS Platelets (Bld) [#/Vol] 184.0 E9/L Normal 150.0 - 500.0 E9/L [facility] HemeAutoSS RBC (Bld) [#/Vol] 4.2 E12/L Low 4.3 - 5.9 E12/L [facility] HemeAutoSS WBC corrected for nucl RBC Auto (Bld) [#/Vol] 4.4 E9/L Normal 4.0 - 11.0 E9/L [facility] HemeAutoSS Hep Func Panelon 06-30-2023 Bilirubin.indirect [Mass or moles/Vol] UTC Abnormal 0.1-0.9 [facility] Comment on above: Result Comment: Resu lt verified by Discern Rule. Performed result UTC (Unable to Calculate) was sent as an Alpha code due the inability to calculate a valid numeric value. Performed By: #### 2 326044, 53231991, 1003289, 4918330, 9718023, 0993315 ####[address] [place] [address] Albumin [Mass/Vol] 3.8 g/dL Normal 3.3-5.0 [facility] Comment on above: Performed By: #### 2 320801, 66079347, 0030834, 9542596, 3864843, 5970837 ####[address] [address] Albumin/Globulin (S) [Mass conc ratio] 1.3 Normal 1.1-2.2 [facility] Comment on above: Performed By: #### 2 748208, 50301631, 6857869, 4978674, 9829625, 0424681 ####[address] [address] ALP [Catalytic activity/Vol] 56 Int._Unit/L Normal 21-98 [facility] Comment on above: Performed By: #### 2 311092, 74403367, 4779974, 6570016, 7744905, 3532509 ####[address] [address] ALT No additional P-5'-P [Catalytic activity/Vol] 50 Int._Unit/L High 6-46 [facility] Comment on above: Performed By: #### 2 026737, 79366709, 4477441, 6448530, 1178276, 7777049 ####[address] [place] [address] AST [Catalytic activity/Vol] 45 Int._Unit/L High 5-43 [facility] Comment on above: Performed By: #### 2 156391, 37293043, 4486165, 5614557, 2903014, 6120945 ####[address] [place] [address] Bilirubin [Mass/Vol] 0.5 mg/dL Normal 0.0-1.1 [facility] Comment on above: Performed By: #### 2 218654, 43999099, 6956866, 0540035, 4681187, 0807256 ####[facility] [address] [place] [address] Globulin (S) [Mass/Vol] 3.0 g/dL Normal 1.4-4.0 [facility] Comment on above: Performed By: #### 2 367705, 65584962, 3047429, 0040193, 8528739, 7244229 ####[facility] [address] [place] [address] Protein [Mass/Vol] 6.8 g/dL Normal 6.0-7.8 [facility] Comment on above: Performed By: #### 2 727208, 58692527, 6542749, 8385779, 9937906, 0638784 ####[facility] [address] [place] [address] Bilirubin.direct [Mass/Vol] mg/dL Normal 0.1-0.4 [facility] Comment on above: Performed By: #### 2 233559, 85388131, 0762268, 2585972, 7569216, 5826121 ####[facility] [address] [place] [address] Lipase Levelon 06-30-2023 Lipase [Catalytic activity/Vol] 31 U/L Normal 13-58 [facility] Comment on above: Performed By: #### 2 721131, 26551964, 6311163, 7905774, 1730252, 9488030 ####[facility] [address] [place] [address] UA With Cult Reflexon 2022 Bacteria LM Ql (Urine sed) TRACE Normal Trace [facility] Comment on above: Performed By: #### 1 2181403 ####[facility] [address] [place] [address] Bilirubin Ql (U) Negative Normal Negative [facility] Comment on above: Performed By: #### 1 7527967 ####[address] [address] Clarity (U) CLEAR Normal Clear [facility] Comment on above: Performed By: #### 1 3091408 ####[address] [address] Color (U) YELLOW Normal Yellow [facility] Comment on above: Performed By: #### 1 4551431 ####[address] [address] Epithelial cells.squamous LM.HPF (Urine sed) [#/Area] 0-2 Normal 0-2 [facility] Comment on above: Performed By: #### 1 4131111 ####[address] [address] Glucose Test strip (U) [Mass/Vol] Negative Normal Negative [facility] Comment on above: Performed By: #### 1 3732734 ####[address] [address] Hemoglobin Ql (U) TRACE Abnormal Negative [facility] Comment on above: Performed By: #### 1 2435960 ####[address] [address] Ketones (U) [Mass/Vol] Negative Normal Negative Fi [facility] Comment on above: Performed By: #### 1 4895453 ####[address] [address] [place].plasma/[place] .RBC (Bld) [Mass ratio] 0-3 Normal 0-3 [facility] Comment on above: Performed By: #### 1 8852864 ####[address] [address] Nitrite Ql (U) Negative Normal Negative [facility] Comment on above: Performed By: #### 1 9735279 ####[address] [address] pH (U) 6.5 [pH] Invalid Interpretation Code 5.0-9.0 [facility] Comment on above: Performed By: #### 1 3322340 ####[facility] [address] [place] [address] Protein (U) [Mass/Vol] Negative Normal Negative [facility] Comment on above: Performed By: #### 1 5340145 ####[facility] [address] [place] [address] Specific gravity (U) [Rel density] <=1.005 Invalid Interpretation Code 1.005-1.030 [facility] Comment on above: Performed By: #### 1 7870946 ####[facility] [address] [place] [address] Type of Urine collection method Clean Catch Normal [facility] Comment on above: Performed By: #### 1 7541133 ####[address] [address] Urobilinogen Qn (U) 0.2 {Judith'U}/dL Normal 0.0-1.0 [facility] Comment on above: Performed By: #### 1 5168359 ####[facility] [address] [place] [address] WBC Auto Ql (U) Negative Normal Negative [facility] Comment on above: Performed By: #### 1 2437558 ####[facility] [address] [place] [address] WBC LM.HPF (Urine sed) [#/Area] 0-5 Normal 0-5 [facility] Comment on above: Performed By: #### 1 5344870 ####[facility] [address] [place] [address] URINALYSISOrdered By: Brian Davis on 06-30-2023 Bacteria LM Ql (Urine sed) Trace /HPF Normal Trace/HPF [facility] Auto SS Bilirubin Ql (U) Negative (06/30/23 8:00 PM) Normal Negative [facility] UA Auto SS Clarity (U) Clear (06/30/23 8:00 PM) Normal Clear [facility] UA Auto SS Color (U) Yellow (06/30/23 8:00 PM) Normal Yellow [facility] UA Auto SS Epithelial cells.squamous LM.HPF (Urine sed) [#/Area] 0-2 /HPF Normal 0-2/HPF [facility] UA Aut o SS Glucose Test strip (U) [Mass/Vol] Negative (06/30/23 8:00 PM) Normal Negative [facility] UA Auto SS Hemoglobin Ql (U) Trace *ABN* (06/30/23 8:00 PM) Invalid Interpretation Code Negative [facility] UA Auto SS Ketones (U) [Mass/Vol] Negative (06/30/23 8:00 PM) Normal Negative [facility] UA Auto SS [place].plasma/[place] .RBC (Bld) [Mass ratio] 0-3 /HPF Normal 0-3/HPF [facility] UA Auto SS Nitrite Ql (U) Negative (06/30/23 8:00 PM) Normal Negative [facility] UA Auto SS pH (U) 6.5 *NA* (06/30/23 8:00 PM) Invalid Interpretation Code 5.0 - 9.0 [facility] UA Auto SS Protein (U) [Mass/Vol] Negative (06/30/23 8:00 PM) Normal Negative [facility] UA Auto SS Specific gravity (U) [Rel density] <=1.005 *NA* (06/30/23 8:00 PM) Invalid Interpretation Code 1.005 - 1.030 [facility] UA Auto SS UA Spec Desc Clean Catch (06/30/23 8:00 PM) Normal [facility] UA Auto SS Urobilinogen Qn (U) 0.9785414 {Judith'U}/dL Normal 0.0 - 1.0 EU/dL [facility] UA Auto SS WBC Auto Ql (U) Negative (06/30/23 8:00 PM) Normal Negative [facility] UA Auto SS WBC LM.HPF (Urine sed) [#/Area] 0-5 /HPF Normal 0-5/HPF [facility] UA Auto SS eGFRon 06-30-2023 GFR/1.73 sq M.predicted among non-blacks MDRD (S/P/Bld) [Vol rate/Area] 77 mL/min/1.73 m2 Normal >=59 [facility] Comment on above: Order Comment: Order added by Discern Expert. Result Comment: Washtub Worker luis kidney disease could be indicated at eGFR's of less than 60 mL/min/1.73m2. Kidney failure is indicated at less than 15 mL/min/1.73m2. Performed By: #### 2 714244, 68597403, 5706522, 6621912, 8693375, 9411150 ####[facility] [address] [place] [address] Consent for Procedure/Surger yon 05-23-2023 Consent for Procedure/Surgery [id number]#1 .00TIFF Normal [facility] Consent for Treatmenton 05-14 Consent for Treatment [id number]#1 .00TIFF [facility] IntraOperative Documentson IntraOperative Documents [id number]#1 .00TIFF Normal [facility] Main OR Intraoperative Recor don 05-23-2023 Main OR Intraoperative Record Normal [facility] Main OR Preoperative Recordo n 05-23-2023 Main OR Preoperative Record Normal [facility] Operative Reporton Operative Report Normal [facility] Comment on above: Result Comment: Elec tronically Signed By: Micheline BROOKS MD\.br\Date and Time Signed: 05/23/23 15:51 EDT Patient Educationon 05-23-20 Patient Education Normal [facility] Ambulatory Visit Summaryon 0 04-26-2023 Ambulatory Visit Summary Normal [facility] Patient Educationon 04-26-20 Patient Education Normal [facility] Urology Office/Clinic Noteon 04-26-2023 Urology Office/Clinic Note Normal [facility] Comment on above: Result Comment: Elec tronically Signed By: Micheline BROOKS MD\.br\Date and Time Signed: 04/26/23 16:11 EDT\.br\Electronically Co-Signed By: Felisa Bautista.br\Date and Time Co-Signed: 04/26/23 16:10 EDT ED Note-Physicianon 04-07-20 ED Note-Physician Normal [facility] Comment on above: Result Comment: Elec tronically Signed By: Molina Mendoza PA-C\.br\Date and Time Signed: 04/04/23 16:28 EDT\.br\Electronically Co-Signed By: Jeff Cross DO\.br\Date and Time Co-Signed: 04/07/23 07:[address] Abdomen/Pelvis w/o Contra ston 04-04-2023 CT Abdomen/Pelvis w/o Contrast [facility] Consent for Treatmenton 03-15 Consent for Treatment [id number]#1 .00CD:127 [facility] Discharge Instructionson Discharge Instructions [id number]# 1.00CD:127 [facility] ED Clinical Summaryon 2022 ED Clinical Summary Normal [place] ED Patient Education Noteon 04-04-2023 ED Patient Education Note Normal [facility] ED Patient Summaryon 023 ED Patient Summary [facility] ED Traumaon 04-04-2023 ED Trauma [id number]# 1.00CD:127 [facility] XR Shoulder Complete Righton 04-04-2023 XR Shoulder Complete Right [facility] Discharge Instructionson Discharge Instructions [id number]#1 .00CD:127 Normal [facility] ED Clinical Summaryon 2022 ED Clinical Summary Normal [place] ED Note-Nursingon 01-29-2023 ED Note-Nursing [facility] ED Note-Physicianon 01-30-20 23 ED Note-Physician [facility] Comment on above: Result Comment: Elec tronically Signed By: Med Medeiros PA-C.br\Date and Time Signed: 01/28/23 22:46 EDT\.br\Electronically Co-Signed By: Med Medeiros PA-C.br\Date and Time Co-Signed: 01/28/23 22:55 EDT\.br\Electronically Co-Signed By: Layton Crawford M.D.\.br\Date and Time Co-Signed: 01/29/23 01:02 EDT ED Patient Education Noteon 01-29-2023 ED Patient Education Note Normal [facility] ED Patient Summaryon 023 ED Patient Summary Normal [facility] UA With Cult Reflexon 2022 Bilirubin Ql (U) Negative Normal Negative [facility] Comment on above: Performed By: #### 1 [id number] ####[facility] [address] [place] [address] Clarity (U) CLEAR Normal Clear [facility] Comment on above: Performed By: #### 1 8293017 ####[facility] [address] [place] [address] Color (U) YELLOW Normal Yellow [facility] Comment on above: Performed By: #### 1 5551271 ####[facility] [address] [place] [address] Epithelial cells.squamous LM.HPF (Urine sed) [#/Area] 3-4 Normal 0-2 [facility] Comment on above: Performed By: #### 1 9911591 ####[facility] [address] [place] [address] Glucose Test strip (U) [Mass/Vol] Negative Normal Negative [facility] Comment on above: Performed By: #### 1 7494054 ####[facility] [address] [place] [address] Hemoglobin Ql (U) 1+ Abnormal Negative [facility] Comment on above: Performed By: #### 1 6435212 ####[facility] [address] [place] [address] Ketones (U) [Mass/Vol] Negative Normal Negative Fi [facility] Comment on above: Performed By: #### 1 9427110 ####[facility] [address] [place] [address] [place].plasma/[place] .RBC (Bld) [Mass ratio] 0-3 Normal 0-3 [facility] Comment on above: Performed By: #### 1 3169269 ####[facility] [address] [place] [address] Nitrite Ql (U) Negative Normal Negative [facility] Comment on above: Performed By: #### 1 0647375 ####[facility] [address] [place] [address] pH (U) 6.0 [pH] Invalid Interpretation Code 5.0-9.0 [facility] Comment on above: Performed By: #### 1 9998972 ####[facility] [address] [place] [address] Protein (U) [Mass/Vol] Negative Normal Negative [facility] Comment on above: Performed By: #### 1 1606861 ####[address] [address] Specific gravity (U) [Rel density] 1.025 Invalid Interpretation Code 1.005-1.030 [facility] Comment on above: Performed By: #### 1 [id number] ####[facility] [address] [place] [address] Type of Urine collection method Clean Catch Normal [facility] Comment on above: Performed By: #### 1 6594662 ####[address] [address] Urobilinogen Qn (U) 1.0 {Judith'U}/dL Normal 0.0-1.0 [facility] Comment on above: Performed By: #### 1 0587612 ####[facility] [address] [place] [address] WBC Auto Ql (U) Negative Normal Negative [facility] Comment on above: Performed By: #### 1 9930185 ####[facility] [address] [place] [address] WBC LM.HPF (Urine sed) [#/Area] 0-5 Normal 0-5 [facility] Comment on above: Performed By: #### 1 0417436 ####[facility] [address] [place] [address] XR Hand 3+ Views Lefton 01-12 XR Hand 3+ Views Left Normal [facility] Consent for Treatmenton 01-12 Consent for Treatment [id number]#1 .00CD:127 Normal [facility] URINALYSISOrdered By: Lan Eastman on 01-28-2023 Bilirubin Ql (U) Negative (01/28/23 11:04 PM) Normal Negative [facility] UA Auto SS Clarity (U) Clear (01/28/23 11:04 PM) Normal Clear [facility] UA Auto SS Color (U) Yellow (01/28/23 11:04 PM) Normal Yellow [facility] UA Auto SS Epithelial cells.squamous LM.HPF (Urine sed) [#/Area] 3-4 /HPF Normal 0-2/HPF [facility] UA Aut o SS Glucose Test strip (U) [Mass/Vol] Negative (01/28/23 11:04 PM) Normal Negative [facility] UA Auto SS Hemoglobin Ql (U) 1+ *ABN* (01/28/23 11:04 PM) Invalid Interpretation Code Negative [facility] UA Auto SS Ketones (U) [Mass/Vol] Negative (01/28/23 11:04 PM) Normal Negative [facility] UA Auto SS [place].plasma/[place] .RBC (Bld) [Mass ratio] 0-3 /HPF Normal 0-3/HPF [facility] UA Auto SS Nitrite Ql (U) Negative (01/28/23 11:04 PM) Normal Negative [facility] UA Auto SS pH (U) 6.0 *NA* (01/28/23 11:04 PM) Invalid Interpretation Code 5.0 - 9.0 [facility] UA Auto SS Protein (U) [Mass/Vol] Negative (01/28/23 11:04 PM) Normal Negative [facility] UA Auto SS Specific gravity (U) [Rel density] 1.025 *NA* (01/28/23 11:04 PM) Invalid Interpretation Code 1.005 - 1.030 [facility] UA Auto SS UA Spec Desc Clean Catch (01/28/23 11:04 PM) Normal [facility] UA Auto SS Urobilinogen Qn (U) 1.4194298 {Judith'U}/dL Normal 0.0 - 1.0 EU/dL [facility] UA Auto SS WBC Auto Ql (U) Negative (01/28/23 11:04 PM) Normal Negative [facility] UA Auto SS WBC LM.HPF (Urine sed) [#/Area] 0-5 /HPF Normal 0-5/HPF [facility] UA Auto SS Coding Summary.on 12-08-2022 Coding Summary. Normal [facility] MA Mamm Screen w/CAD if perf and 3D Bilon 12-06-2022 MA Mamm Screen w/CAD if perf and 3D Zac Normal [facility] Consent for Treatmenton 11-13 Consent for Treatment [id number]#1 .00CD:127 [facility] Coding Summary.on 10-27-2022 Coding Summary. Normal [facility] Consent for Procedure/Surger yon 10-25-2022 Consent for Procedure/Surgery [id number]#1 .00CD:127 [facility] Consent for Treatmenton 10-12 Consent for Treatment [id number]#1 .00CD:127 [facility] IntraOperative Documentson 0 10-25-2022 IntraOperative Documents [id number]#1 .00CD:127 [facility] Main OR Intraoperative Recor don 10-25-2022 Main OR Intraoperative Record [facility] Main [place] Preoperative Recordo n 10-25-2022 Main [place] Preoperative Record [facility] Operative Reporton Operative Report Normal [facility] Comment on above: Result Comment: Elec tronically Signed By: CECILIA MCMAHON, Micheline Hurtado.br\Date and Time Signed: 10/25/22 10:30 EDT Patient Educationon 10-26-19 Patient Education [facility] Physician Orderon 10-20-2022 Physician Order [id number] [facility] Q - SARS CoV2 COVID 19 Ab Ig Clarence 08-20-2021 SARS-CoV-2 (COVID-19) Ab IA Qn 25.84 index High <1.00 [facility] Comment on above: Order Comment: [facility] Testing performed at: QPT, [facility], [address], [address] [place], [address], Drug And Alcohol Treatment Specialist: Ab Vincent MD [facility] Collection Date/Time: [facility] Results Received Date/Time: [facility] Reported Date/Time: Result Comment: This test is intended to help identify individuals with antibodies to SARS-CoV-2 (COVID-19). The results of this semi-quantitative test should not be interpreted as an indication or degree of immunity or protection from reinfection. A test result that is 1.00 or more (Positive) means antibodies to SARS-CoV-2 were detected in the blood sample by the test. This could mean that the individual may have an immune response to a recent or prior infection with SARS-CoV-2. Positive results may occur after COVID-19 vaccination, but the clinical significance of a positive antibody result for individuals that have received a COVID-19 vaccine is unknown, and the performance of the test has not been established in COVID-19 vaccinees. False positive results for the test may occur due to cross-reactivity from pre-existing antibodies or other possible causes. A test result that is less than 1.00 (Negative) means that antibodies were not detected in the blood sample by the test. This could mean that the individual has not been previously infected with SARS-CoV-2. The clinical significance of a negative antibody result for individuals that have received a COVID-19 vaccine is unknown. The performance of the test has not been established in COVID-19 vaccinees. False negative results for the test may occur if the individual's antibodies have not reached a sufficient level for the test to be able to detect them. Antibodies can take up to two to three weeks (sometimes longer) to develop after someone is infected. How long antibodies to SARS-CoV-2 last after infection is not known. This test should not be used to diagnose an active SARS-CoV-2 infection. If an active infection is suspected, direct molecular or antigen testing for SARS-CoV-2 is recommended. Please review the Fact Sheets available for healthcare providers and patients using the following websites: [email or web address] Healthcare Providers: For additional information please refer to: http://education.[employer].SeptRx/faq/NKF970 (This link is being provided for informational/educational purposes only.) This test has been authorized by the FDA under an Emergency Use Authorization (EUA) for use by authorized laboratories. The FDA authorized labeling is available on the [employer] website: www.[employer].SeptRx/Covid19. Performed By: #### [id number] #### [facility] [address] [place] [address] Reference Laboratory Testing Ordered By: [employer] on 08-12-2021 SARS-CoV-2 (COVID-19) RNA JORDAN+probe Ql (Resp) Not detected Invalid Interpretation Code Not Detected [facility] Comment on above: Result Comment: This nucleic acid amplification test was developed and its performance characteristics determined by [employer]. Nucleic acid amplification tests include RT-PCR and TMA. This test has not been FDA cleared or approved. This test has been authorized by FDA under an Emergency Use Authorization (EUA). This test is only authorized for the duration of time the declaration that circumstances exist justifying the authorization of the emergency use of in vitro diagnostic tests for detection of SARS-CoV-2 virus and/or diagnosis of COVID-19 infection under section 564(b)(1) of the Act, 21 U.S.C. 360bbb-3(b) (1), unless the authorization is terminated or revoked sooner. When diagnostic testing is negative, the possibility of a false negative result should be considered in the context of a patient's recent exposures and the presence of clinical signs and symptoms consistent with COVID-19. An individual without symptoms of COVID-19 and who is not shedding SARS-CoV-2 virus would expect to have a negative (not detected) result in this assay. Performed at: [address] [id number] PhD Emily Fraser Vital Signs Date Time Vital Sign Value Performing Clinician Facility 10-05-2023 21:54-0500 Diastolic blood pressure 81 mm[Hg] Kaylinn Dokken [facility] 10-05-2023 21:54-0500 Heart rate 75 /min Kaylinn Dokken [facility] 10-05-2023 21:54-0500 Respiratory rate 19 /min Kaylinn Dokken [facility] 10-05-2023 21:54-0500 SaO2% (BldA) [Mass fraction] 100 % Kaylinn Dokken [facility] 10-05-2023 21:54-0500 Systolic blood pressure 144 mm[Hg] Kaylinn Dokken [facility] 10-05-2023 18:04-0500 Body temperature 97.7 [degF] Kaylinn Dokken [facility] 10-05-2023 18:04-0500 Diastolic blood pressure 78 mm[Hg] Kaylinn Dokken [facility] 10-05-2023 18:04-0500 Heart rate 95 /min Kaylinn Dokken [facility] 10-05-2023 18:04-0500 Respiratory rate 22 /min Kaylinn Dokken [facility] 10-05-2023 18:04-0500 SaO2% (BldA) [Mass fraction] 100 % Kaylinn Dokken [facility] 10-05-2023 18:04-0500 Systolic blood pressure 131 mm[Hg] Kaylinn Dokken [facility] 09-26-2023 09:13-0500 Body height 165.1 cm Ana Lavalette [employer] Work Phone: [facility] 09-26-2023 09:13-0500 Body weight 50.8 kg Ana Lavalette [employer] Work Phone: [facility] 09-26-2023 09:13-0500 Diastolic blood pressure 57 mm[Hg] Ana Lavalette [employer] TE[employer] Work Phone: 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 09-26-2023 09:13-0500 Respiratory rate 20 /min Ana Lavalette [employer] TEACH[employer] Work Phone: [facility] 09-26-2023 09:13-0500 SaO2% (BldA) [Mass fraction] 98 % Ana Lavalette [employer] TEACH[employer] Work Phone: [facility] 09-26-2023 09:13-0500 Systolic blood pressure 118 mm[Hg] Ana Lavalette [employer] TEACH[employer] Work Phone: [facility] 09-18-2023 17:51-0500 Body height 165.1 cm Peggy Nazario MD Work Phone: [facility] 09-18-2023 17:51-0500 Body mass index (BMI) [Ratio] 19.34 kg/m2 Peggy Nazario MD Work Phone: [facility] 09-18-2023 17:51-0500 Body temperature 98.01 [degF] Peggy Nazario MD Work Phone: [facility] 09-18-2023 17:51-0500 Body weight 52.71 kg Peggy Nazario MD Work Phone: [facility] 09-18-2023 17:51-0500 Diastolic blood pressure 66 mm[Hg] Peggy Nazario MD Work Phone: [facility] 09-18-2023 17:51-0500 Heart rate 75 /min Peggy Nazario MD Work Phone: [facility] 09-18-2023 17:51-0500 SaO2% (BldA) [Mass fraction] 99 % Peggy Nazario MD Work Phone: [facility] 09-18-2023 17:51-0500 Systolic blood pressure 136 mm[Hg] Peggy Nazario MD Work Phone: [facility] 09-17-2023 06:00-0500 Diastolic blood pressure 60 mm[Hg] Parveen Armen [facility] 09-17-2023 06:00-0500 Heart rate 61 /min Parveen Armen [facility] 09-17-2023 06:00-0500 Mean blood pressure 79 mm[Hg] Parveen Armen [facility] 09-17-2023 06:00-0500 Respiratory rate 11 /min Parveen Ramen [facility] 09-17-2023 06:00-0500 SaO2% (BldA) [Mass fraction] 100 % Parveen Armen [facility] 09-17-2023 06:00-0500 Systolic blood pressure 118 mm[Hg] Parveen Armen [facility] 09-17-2023 05:06-0500 Body temperature 96.98 [degF] Parveen Armen [facility] 09-17-2023 05:06-0500 Diastolic blood pressure 58 mm[Hg] Parveen Armen [facility] 09-17-2023 05:06-0500 gluc 79 mg/dL Parveen Armen [facility] 09-17-2023 05:06-0500 gluc Parveen Armen [facility] 09-17-2023 05:06-0500 Heart rate 85 /min Parveen Armen [facility] 09-17-2023 05:06-0500 Respiratory rate 20 /min Parveen Armen [facility] 09-17-2023 05:06-0500 SaO2% (BldA) [Mass fraction] 98 % Parveen Armen [facility] 09-17-2023 05:06-0500 Systolic blood pressure 140 mm[Hg] Parveen Armen [facility] 09-12-2023 06:38-0500 Diastolic blood pressure 93 mm[Hg] Parveen Armen [facility] 09-12-2023 06:38-0500 Heart rate 78 /min Parveen Armen [facility] 09-12-2023 06:38-0500 Mean blood pressure 109 mm[Hg] Parveen Armen [facility] 09-12-2023 06:38-0500 Respiratory rate 13 /min Parveen Armen [facility] 09-12-2023 06:38-0500 SaO2% (BldA) [Mass fraction] 98 % Parveen Armen [facility] 09-12-2023 06:38-0500 Systolic blood pressure 142 mm[Hg] Parveen Armen [facility] 09-12-2023 05:58-0500 Diastolic blood pressure 96 mm[Hg] Parveen Armen [facility] 09-12-2023 05:58-0500 Heart rate 55 /min Parveen Armen [facility] 09-12-2023 05:58-0500 Mean blood pressure 112 mm[Hg] Parveen Armen [facility] 09-12-2023 05:58-0500 Respiratory rate 16 /min Parveen Armen [facility] 09-12-2023 05:58-0500 SaO2% (BldA) [Mass fraction] 100 % Parveen Armen [facility] 09-12-2023 05:58-0500 Systolic blood pressure 144 mm[Hg] Parveen Armen [facility] 09-12-2023 04:56-0500 Diastolic blood pressure 77 mm[Hg] Parveen Armen [facility] 09-12-2023 04:56-0500 Heart rate 60 /min Parveen Armen [facility] 09-12-2023 04:56-0500 Mean blood pressure 94 mm[Hg] Parveen Armen [facility] 09-12-2023 04:56-0500 Respiratory rate 18 /min Parveen Armen [facility] 09-12-2023 04:56-0500 SaO2% (BldA) [Mass fraction] 100 % Parveen Armen [facility] 09-12-2023 04:56-0500 Systolic blood pressure 129 mm[Hg] Parveen Armen [facility] 09-12-2023 04:27-0500 gluc 96 mg/dL Parveen Armen [facility] 09-12-2023 04:27-0500 gluc Parveen Armen [facility] 09-12-2023 04:13-0500 Body temperature 96.98 [degF] Parveen Ayers [facility] 09-12-2023 04:13-0500 Heart rate 83 /min Parveen Ayers [facility] 09-12-2023 04:13-0500 Respiratory rate 16 /min Parveen Ayers [facility] 07-21-2023 06:46-0500 Blood Pressure Location Johan HENRIQUEZ [facility] 07-21-2023 06:46-0500 Diastolic blood pressure 57 mm[Hg] Johan HENRIQUEZ [facility] 07-21-2023 06:46-0500 Heart rate 81 /min Johan HENRIQUEZ [facility] 07-21-2023 06:46-0500 Respiratory rate 18 /min Johan HENRIQUEZ [facility] 07-21-2023 06:46-0500 SaO2% (BldA) [Mass fraction] 100 % Johan HENRIQUEZ [facility] 07-21-2023 06:46-0500 Systolic blood pressure 118 mm[Hg] Johan HENRIQUEZ [facility] 07-20-2023 09:56-0500 Blood Pressure Location Johan HENRIQUEZ [facility] 07-20-2023 09:56-0500 Diastolic blood pressure 52 mm[Hg] Johan HENRIQUEZ [facility] 07-20-2023 09:56-0500 Heart rate 62 /min Johan HENRIQUEZ [facility] 07-20-2023 09:56-0500 SaO2% (BldA) [Mass fraction] 98 % Johan HENRIQUEZ [facility] 07-20-2023 09:56-0500 Systolic blood pressure 105 mm[Hg] Johan HENRIQUEZ [facility] 07-07-2023 12:38-0500 Diastolic blood pressure 59 mm[Hg] Jeff Cross [facility] 07-07-2023 12:38-0500 Heart rate 94 /min Jeff Wadee [facility] 07-07-2023 12:38-0500 Respiratory rate 13 /min Jeff Wadee [facility] 07-07-2023 12:38-0500 SaO2% (BldA) [Mass fraction] 94 % Jeff Wadee [facility] 07-07-2023 12:38-0500 Systolic blood pressure 123 mm[Hg] Jeff Wadee [facility] 07-07-2023 12:00-0500 Diastolic blood pressure 83 mm[Hg] Jeff Tay [facility] 07-07-2023 12:00-0500 Heart rate 102 /min Jeff Wadee [facility] 07-07-2023 12:00-0500 Mean blood pressure 96 mm[Hg] Jeff Tay [facility] 07-07-2023 12:00-0500 Respiratory rate 17 /min Jeff Wadee [facility] 07-07-2023 12:00-0500 SaO2% (BldA) [Mass fraction] 96 % Jeff Tay [facility] 07-07-2023 11:34-0500 Diastolic blood pressure 73 mm[Hg] Jeff Tay [facility] 07-07-2023 11:34-0500 Heart rate 93 /min Jeff Tay [facility] 07-07-2023 11:34-0500 Respiratory rate 18 /min Jeff Cross [facility] 07-07-2023 11:34-0500 SaO2% (BldA) [Mass fraction] 94 % Jeff Cross [facility] 07-07-2023 11:34-0500 Systolic blood pressure 109 mm[Hg] Jeff Cross [facility] 07-07-2023 09:52-0500 Heart rate 103 /min Jeff Cross [facility] 07-07-2023 08:57-0500 Body temperature 97.88 [degF] Jeff Cross [facility] 07-07-2023 08:57-0500 Heart rate 134 /min Jeff Cross [facility] 07-07-2023 08:57-0500 Respiratory rate 24 /min Jeff Cross [facility] 07-06-2023 14:03-0500 Hourly Rounding Ronobir ABDI [facility] 07-06-2023 14:03-0500 Promise to Return Ronobir ABDI [facility] 07-06-2023 13:34-0500 Hourly Rounding Ronobir ABDI [facility] 07-06-2023 13:00-0500 Hourly Rounding Ronobir ABDI [facility] 07-06-2023 13:00-0500 Promise to Return Ronobir ABDI [facility] 07-06-2023 12:07-0500 Promise to Return Ronobir ABDI [facility] 07-06-2023 12:00-0500 Blood Pressure Location Ronobir ABDI [facility] 07-06-2023 12:00-0500 Body temperature 98.06 [degF] Ronobir ABDI [facility] 07-06-2023 12:00-0500 Diastolic blood pressure 69 mm[Hg] Ronobir ABDI [facility] 07-06-2023 12:00-0500 Heart rate 78 /min Ronobir ABDI [facility] 07-06-2023 12:00-0500 Mean blood pressure 81 mm[Hg] Ronobir ABDI [facility] 07-06-2023 12:00-0500 SaO2% (BldA) [Mass fraction] 94 % Ronobir ABDI [facility] 07-06-2023 12:00-0500 Systolic blood pressure 105 mm[Hg] Ronobir ABDI [facility] 07-06-2023 10:00-0500 Diastolic blood pressure 66 mm[Hg] Ronobir ABDI [facility] 07-06-2023 10:00-0500 Heart rate 77 /min Ronobir ABDI [facility] 07-06-2023 10:00-0500 Mean blood pressure 78 mm[Hg] Ronobir ABDI [facility] 07-06-2023 10:00-0500 Systolic blood pressure 103 mm[Hg] Ronobir ABDI [facility] 07-06-2023 07:00-0500 Body temperature 97.7 [degF] Ronobir ABDI [facility] 07-06-2023 07:00-0500 Diastolic blood pressure 60 mm[Hg] Ronobir ABDI [facility] 07-06-2023 07:00-0500 SaO2% (BldA) [Mass fraction] 93 % Ronobir ABDI [facility] 07-06-2023 07:00-0500 Systolic blood pressure 97 mm[Hg] Ronobir ABDI [facility] 07-06-2023 00:18-0500 Body temperature 97.7 [degF] Ronobir ABDI [facility] 07-06-2023 00:18-0500 SaO2% (BldA) [Mass fraction] 93 % Ronobir ABDI [facility] 07-05-2023 22:10-0500 Mean blood pressure 79 mm[Hg] Ronobir ABDI [facility] 07-05-2023 16:03-0500 Mean blood pressure 88 mm[Hg] Ronobir ABDI [facility] 07-05-2023 11:18-0500 Mean blood pressure 77 mm[Hg] Ronobir ABDI [facility] 07-05-2023 11:18-0500 Body temperature 98.06 [degF] Ronobir ABDI [facility] 07-05-2023 09:59-0500 Mean blood pressure 86 mm[Hg] Ronobir ABDI [facility] 07-05-2023 09:58-0500 Body temperature 98.42 [degF] Ronobir ABDI [facility] 07-04-2023 19:23-0500 Body temperature 97.7 [degF] Ronobir ABDI [facility] 07-03-2023 18:22-0500 BP/Pulse Patient Position Ronobir ABDI [facility] 07-03-2023 14:00-0500 Respiratory rate 17 /min Ronobir ABDI [facility] 07-03-2023 06:46-0500 Respiratory rate 18 /min Ronobir ABDI [facility] 07-03-2023 06:45-0500 BP/Pulse Patient Position Ronobir ABDI [facility] 07-03-2023 04:30-0500 Respiratory rate 16 /min Ronobir ABDI [facility] 07-03-2023 02:45-0500 Heart rate 90 /min Ronobir ABDI [facility] 07-03-2023 02:30-0500 Respiratory rate 12 /min Ronobir ABDI [facility] 07-03-2023 02:15-0500 Respiratory rate 13 /min Ronobir ABDI [facility] 07-02-2023 21:27-0500 Heart rate 141 /min Ronobir ABDI [facility] 07-02-2023 21:27-0500 Respiratory rate 18 /min Ronobir ABDI [facility] 07-01-2023 00:30-0500 Diastolic blood pressure 76 mm[Hg] Kaylinn Dokken [facility] 07-01-2023 00:30-0500 Heart rate 102 /min Kaylinn Dokken [facility] 07-01-2023 00:30-0500 Mean blood pressure 82 mm[Hg] Kaylinn Dokken [facility] 07-01-2023 00:30-0500 Respiratory rate 18 /min Kaylinn Dokken [facility] 07-01-2023 00:30-0500 SaO2% (BldA) [Mass fraction] 95 % Kaylinn Dokken [facility] 07-01-2023 00:30-0500 Systolic blood pressure 93 mm[Hg] Kaylinn Dokken [facility] 06-30-2023 23:24-0500 Diastolic blood pressure 73 mm[Hg] Kaylinn Dokken [facility] 06-30-2023 23:24-0500 Heart rate 102 /min Kaylinn Dokken [facility] 06-30-2023 23:24-0500 Mean blood pressure 92 mm[Hg] Kaylinn Dokken [facility] 06-30-2023 23:24-0500 Respiratory rate 16 /min Kaylinn Dokken [facility] 06-30-2023 23:24-0500 SaO2% (BldA) [Mass fraction] 94 % Kaylinn Dokken [facility] 06-30-2023 23:24-0500 Systolic blood pressure 130 mm[Hg] Kaylinn Dokken [facility] 06-30-2023 22:30-0500 Body temperature 97.88 [degF] Kaylinn Dokken [facility] 06-30-2023 22:30-0500 Diastolic blood pressure 112 mm[Hg] Kaylinn Dokken [facility] 06-30-2023 22:30-0500 Heart rate 114 /min Kaylinn Dokken [facility] 06-30-2023 22:30-0500 Mean blood pressure 120 mm[Hg] Kaylinn Dokken [facility] 06-30-2023 22:30-0500 Respiratory rate 18 /min Lisylinn Dokken [facility] 06-30-2023 22:30-0500 SaO2% (BldA) [Mass fraction] 100 % Lisylinn Dokken [facility] 06-30-2023 22:30-0500 Systolic blood pressure 137 mm[Hg] Lisylinn Dokken [facility] 06-30-2023 19:33-0500 Body temperature 97.7 [degF] Caitlyninn Dokken [facility] 06-30-2023 19:33-0500 Heart rate 123 /min Lisylinn Dokken [facility] 04-26-2023 15:19-0400 Blood Pressure Location Micheline BROOKS [facility] 04-26-2023 15:19-0400 Diastolic blood pressure 88 mm[Hg] Micheline BROOKS [facility] 04-26-2023 15:19-0400 Heart rate 80 /min Micheline BROOKS [facility] 04-26-2023 15:19-0400 Systolic blood pressure 139 mm[Hg] Micheline BROOKS [facility] 04-04-2023 16:30-0400 Diastolic blood pressure 51 mm[Hg] Jeff Tay [facility] 04-04-2023 16:30-0400 Heart rate 39 /min Jeff Tay [facility] 04-04-2023 16:30-0400 Respiratory rate 14 /min Jeff Tay [facility] 04-04-2023 16:30-0400 SaO2% (BldA) [Mass fraction] 99 % Jeff Tay [facility] 04-04-2023 16:30-0400 Systolic blood pressure 145 mm[Hg] Jeff Tay [facility] 04-04-2023 15:52-0400 Body temperature 98.06 [degF] Jeff Tay [facility] 04-04-2023 15:52-0400 Diastolic blood pressure 81 mm[Hg] Jeff Tay [facility] 04-04-2023 15:52-0400 Heart rate 66 /min Jeff Tay [facility] 04-04-2023 15:52-0400 Respiratory rate 14 /min Jeff Tay [facility] 04-04-2023 15:52-0400 SaO2% (BldA) [Mass fraction] 99 % Jeff Tay [facility] 04-04-2023 15:52-0400 Systolic blood pressure 161 mm[Hg] Jeff Tay [facility] 04-04-2023 14:52-0400 Diastolic blood pressure 79 mm[Hg] Jeff Tay [facility] 04-04-2023 14:52-0400 Heart rate 64 /min Jeff Tay [facility] 04-04-2023 14:52-0400 Respiratory rate 14 /min Jeff Cross [facility] 04-04-2023 14:52-0400 SaO2% (BldA) [Mass fraction] 100 % Jeff Cross [facility] 04-04-2023 14:52-0400 Systolic blood pressure 95 mm[Hg] Jeff Cross [facility] 04-04-2023 14:07-0400 Body temperature 98.06 [degF] Jeff Cross [facility] 04-04-2023 13:52-0400 Body temperature 98.24 [degF] Jeff Cross [facility] 04-04-2023 13:52-0400 Heart rate 107 /min Jeff Cross [facility] 01-28-2023 21:23-0400 Body temperature 97.7 [degF] [facility] 01-28-2023 21:23-0400 Diastolic blood pressure 78 mm[Hg] [facility] 01-28-2023 21:23-0400 Heart rate 82 /min [facility] 01-28-2023 21:23-0400 Respiratory rate 18 /min [facility] 01-28-2023 21:23-0400 SaO2% (BldA) [Mass fraction] 97 % [facility] 01-28-2023 21:23-0400 Systolic blood pressure 125 mm[Hg] [facility] 09-01-2022 14:01-0500 Diastolic blood pressure 75 mm[Hg] Julianstacia Esequiel [facility] 09-01-2022 14:01-0500 Mean blood pressure 91 mm[Hg] Mohstacia Esequiel [facility] 09-01-2022 14:01-0500 Systolic blood pressure 122 mm[Hg] Mohstacia Esequiel [facility] 09-01-2022 13:48-0500 Blood Pressure Location Mohstacia Esequiel [facility] 09-01-2022 13:48-0500 Diastolic blood pressure 79 mm[Hg] Mohstacia Esequiel [facility] 09-01-2022 13:48-0500 Heart rate 60 /min Yennifer Esequiel [facility] 09-01-2022 13:48-0500 SaO2% (BldA) [Mass fraction] 98 % Yennifer Esequiel [facility] 09-01-2022 13:48-0500 Systolic blood pressure 149 mm[Hg] Mohstacia Esequiel [facility] 06-13-2022 08:54-0400 Blood Pressure Location Yennifer Esequiel [facility] 06-13-2022 08:54-0400 Diastolic blood pressure 68 mm[Hg] Yennifer Esequiel [facility] 06-13-2022 08:54-0400 Heart rate 75 /min Yennifer Esequiel [facility] 06-13-2022 08:54-0400 SaO2% (BldA) [Mass fraction] 96 % Mohamed Esequiel [facility] 06-13-2022 08:54-0400 Systolic blood pressure 132 mm[Hg] Mohamed Esequiel [facility] 03-03-2022 09:59-0400 Blood Pressure Location CARMINA GARRISON [facility] 03-03-2022 09:59-0400 Diastolic blood pressure 89 mm[Hg] CARMINA GARRISON [facility] Shira 03-03-2022 09:59-0400 Heart rate 77 /min CARMINA GARRISON [facility] Christian 03-03-2022 09:59-0400 Systolic blood pressure 140 mm[Hg] CARMINA GARRISON [facility] 02-15-2022 13:17-0400 Body temperature 98.6 [degF] Jeff Cross [facility] 02-15-2022 13:17-0400 Diastolic blood pressure 62 mm[Hg] Jeff Wadee [facility] 02-15-2022 13:17-0400 Heart rate 86 /min Jeff Wadee [facility] 02-15-2022 13:17-0400 Respiratory rate 18 /min Jeff Wadee [facility] 02-15-2022 13:17-0400 SaO2% (BldA) [Mass fraction] 99 % Jeff Tay [facility] 02-15-2022 13:17-0400 Systolic blood pressure 151 mm[Hg] Jeff Tay [facility] 12-24-2021 17:39-0400 Body temperature 97.7 [degF] Jeff Tay [facility] 12-24-2021 17:39-0400 Diastolic blood pressure 70 mm[Hg] Jeff Tay [facility] 12-24-2021 17:39-0400 Heart rate 81 /min Jeff Cross [facility] 12-24-2021 17:39-0400 Respiratory rate 15 /min Jeff Cross [facility] 12-24-2021 17:39-0400 SaO2% (BldA) [Mass fraction] 100 % Jeff Cross [facility] 12-24-2021 17:39-0400 Systolic blood pressure 163 mm[Hg] Jeff Cross [facility] Encounters Encounter Date Encounter Type Care Provider Facility Start: 10-05-2023 End: 10-05-2023 Emergency department patient visit Koby Masterson [facility] Start: 10-05-2023 End: 10-05-2023 Emergency department patient visit Koby [facility] [facility] Start: 10-02-2023 Telephone encounter Alea lynn MD Work Phone: Cardiology Comment on above: Results Start: 09-26-2023 End: 09-27-2023 ambulatory Raphael Goldsmith MD Work Phone: Urology Start: 09-26-2023 Clinisync Result Encounter Gen betty External Data Provider [facility] Unsolicited Start: 09-26-2023 Clinisync Result Encounter Gen betty External Data Provider [facility] External [facility] Unsolicited Start: 09-26-2023 End: 09-26-2023 Patient encounter procedure Ana Rivas APRN.CNP Work Phone: Cardiology Comment on above: Non-rheumatic mitral regurgitation (Primary Dx); Chronic HFrEF (heart failure with reduced ejection fraction) (HCC); Nonrheumatic tricuspid valve regurgitation; Non-ischemic cardiomyopathy (HCC); Persistent atrial fibrillation (HCC); 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; History of cardioversion; Primary hypertension Feeling of incomplet e bladder emptying (Primary Dx); Stricture of female urethra, unspecified stricture type; Severe protein-calorie malnutrition (HCC) Start: 09-21-2023 End: 09-22-2023 [facility] Start: 09-21-2023 Telephone encounter Alea lynn MD Work Phone: Cardiology Comment on above: Medication Problem Start: 09-18-2023 End: 09-18-2023 ambulatory PEGGY NAZARIO Not Available Start: 09-18-2023 End: 09-18-2023 Office outpatient visit 40 minutes Peggy Nazario MD Work Phone: [facility] Comment on above: Mitral valve insuffi ciency, unspecified etiology (Primary Dx); Anxiety; Paroxysmal atrial fibrillation (CMS/HCC); Other cardiomyopathy (CMS/HCC); Hospital discharge follow-up; Other thrombophilia (D68.69); Atherosclerosis of aorta (I70.0) Start: 09-17-2023 Telephone encounter Carmina larios APRN.CNP Work Phone: Cardiothoracic Comment on above: Medication Problem Start: 09-17-2023 End: 09-17-2023 Emergency department patient visit Parveen Ayers Facility[facility] Start: 09-17-2023 End: 09-17-2023 Emergency department patient visit Parveen BenitezElise Ayers [facility] Start: 09-13-2023 Refill Peggy Nazario MD Work Phone: [facility] Comment on above: Anxiety Start: 09-12-2023 End: 09-12-2023 ambulatory CRUZ COVINGTON Not Available Start: 09-12-2023 Refill Peggy Nazario MD Work Phone: [facility] Comment on above: Gastroesophageal ref lux disease without esophagitis Start: 09-12-2023 End: 09-12-2023 Emergency department patient visit Parveen Ayers Facility:[facility] Start: 09-12-2023 End: 09-12-2023 Emergency department patient visit Parveen Ayers [facility] Start: 09-06-2023 End: 09-06-2023 ambulatory PEGGY NAZARIO Not Available Start: 08-28-2023 End: 08-29-2023 ambulatory PEGGY NAZARIO Facility:[facility] Start: 08-24-2023 Evaluation and manag ement of inpatient LE PANIAGUA Facility:[facility] Start: 08-23-2023 End: 08-24-2023 ambulatory GIANNI VILLALBA Facility:[facility] Start: 08-11-2023 End: 08-11-2023 ambulatory PEGGY NAZARIO Not Available Start: 07-24-2023 End: 07-24-2023 ambulatory RODOLFO BOO Not Available Start: 07-24-2023 Telephone encounter Micheline goldberg MD Work Phone: Cardiothoracic Comment on above: Insurance Inquiry Start: 07-21-2023 End: 07-21-2023 ambulatory Johan HENRIQUEZ Facility:[facility] Start: 07-21-2023 End: 07-21-2023 Admission to same day surgery center Johan HENRIQUEZ [facility] Start: 07-20-2023 End: 07-20-2023 ambulatory PEGGY NAZARIO Not Available Start: 07-20-2023 End: 07-21-2023 ambulatory XXXX NONE Facility:[facility] Start: 07-20-2023 End: 07-20-2023 Patient encounter procedure Johan HENRIQUEZ [facility] Start: 07-19-2023 End: 07-20-2023 ambulatory Micheline BROOKS Facility:[facility] Start: 07-10-2023 End: 07-10-2023 ambulatory PEGGY NAZARIO Not Available Start: 07-07-2023 End: 07-07-2023 Emergency department patient visit Jeff Cross Facility:[facility] Start: 07-07-2023 End: 07-07-2023 Emergency department patient visit Jeff Cross [facility] Start: 07-04-2023 End: 07-06-2023 Pre-admission assessment Johan HENRIQUEZ [facility] Start: 07-02-2023 End: 07-06-2023 ambulatory Nahid SERRATO Facility:[facility] Start: 07-02-2023 End: 07-06-2023 Observation Noman PATTON [facility] Start: 06-30-2023 End: 07-01-2023 Emergency department patient visit Koby Masterson Facility:[facility] Start: 06-30-2023 End: 07-01-2023 [facility] Start: 05-23-2023 End: 05-24-2023 ambulatory Micheline BROOKS Facility:[facility] Start: 04-26-2023 End: 04-27-2023 ambulatory Micheline BROOKS Facility:[facility] Start: 04-26-2023 End: 04-26-2023 Patient encounter procedure Micheline BROOKS [facility] Start: 04-04-2023 End: 04-04-2023 Emergency department patient visit Jeff Cross Facility:[facility] Start: 04-04-2023 End: 04-04-2023 Emergency department patient visit Jeff Cross [facility] Start: 01-28-2023 End: 01-29-2023 Emergency department patient visit José Luispamela Cazares Yvette Facility:[facility] Start: 01-28-2023 End: 01-28-2023 Emergency department patient visit Layton Crawford [facility] Start: 12-05-2022 End: 12-06-2022 ambulatory Peggy Nazario Facility:[facility] Start: 12-05-2022 End: 12-05-2022 Patient encounter procedure Peggy Deyanira Aravind [facility] Start: 10-25-2022 End: 10-26-2022 ambulatory Micheline BROOKS Facility:[facility] Start: 10-25-2022 End: 10-25-2022 Patient encounter procedure Micheline BROOKS [facility] Start: 10-03-2022 End: 10-03-2022 Patient encounter procedure Asuncion Reyna [facility] Start: 09-01-2022 End: 09-01-2022 Patient encounter procedure Yennifer Iraheta [facility] Start: 07-12-2022 End: 07-12-2022 [facility] encounter [facility] Start: 06-13-2022 End: 06-13-2022 Patient encounter procedure [facility] Jb Iraheta [facility] Start: 03-03-2022 End: 03-03-2022 Patient encounter procedure CARMINA GARRISON [facility] Start: 02-15-2022 End: 02-15-2022 Emergency department patient visit Jeff Cross [facility] Start: 12-24-2021 End: 12-24-2021 Emergency department patient visit Jeff Cross [facility] Start: 08-11-2021 End: 11-10-2021 Patient encounter procedure Peggy Nazario [facility] Procedures Date Procedure Procedure Detail Performing Clinician Start: 09-26-2023 Urnls dip stick/tabl et reagent auto microscopy Bulk Order Provider Start: 09-26-2023 [facility] CBC PNL BLD AUTO Ge neric External Data Provider Start: 07-21-2023 Transesophageal echocardiography Johan HENRIQUEZ Start: 07-05-2023 Catheterization of b oth left and right heart Noman PATTON Start: 01-30-2023 H/O: hysterectomy Status post hysterectomy Peggy Nazario MD Work Phone: Start: 10-25-2022 Cystourethroscopy wi th dilation of urethral stricture Micheline BROOKS Start: 02-23-2021 Cystoscopy Peggy fernandez Start: 02-01-2019 Dilation of urethra Linda Nazario Start: 02-15-2018 Colonoscopy Micheline goldberg MD Work Phone: Start: 10-10-2017 Cystourethroscopy wi th dilation of urethral stricture Peggy Nazario colon resection Peggy Nazario Corneal implant (phy sical object) Peggy Nazario Cystoscopy Peggy Nazario Dilation of urethra Peggy fairchild Comment on above: Dr. Contreras Hysterectomy Peggy Nazario Tonsillectomy Peggy Nazario Plan of Treatment Date Care Activity Detail Author Start: 02-16-2028 Screening for malign ant neoplasm of colon [facility] Start: 01-30-2028 Urine microalbumin profile DTa P,Tdap,Td Vaccine (5 - Td or Tdap) [facility] Start: 09-26-2026 Diabetes Screening Diabetes Screenin g [facility] Start: 08-31-2026 Diabetes Screening Diabetes Screenin g [facility] Start: 09-26-2024 BP Controlled (<130/80) BP Controlle d (<130/80) [facility] Start: 08-28-2024 BP Controlled (<130/80) BP Controlle d (<130/80) [facility] Start: 07-29-2024 End: 07-29-2024 Patient encounter procedure 07/29/2024 3:45 PM EST Office Visit [facility] [address] [place] [id number] Rodolfo Boo, DO [address] [place] [address] [facility] Start: 07-24-2024 Medicare Annual Well ness (AWV) Medicare Annual Wellness (AWV) [facility] Start: 01-24-2024 ambulatory Facility[facility] Start: 11-10-2023 End: 11-10-2023 Patient encounter procedure 11/10/2023 1:00 PM EDT Office Visit [facility] [address] [place] [id number] Peggy Nazario MD [address] [place] [address] [facility] Start: 11-08-2023 End: 02-07-2024 Basic metabolic 2000 panel - Serum or Plasma BASIC METABOLIC PNL Lab Routine Non-rheumatic mitral regurgitation Persistent atrial fibrillation (HCC) Non-ischemic cardiomyopathy (HCC) Chronic HFrEF (heart failure with reduced ejection fraction) (HCC) Expected: 11/08/2023 (Approximate), Expires: 02/07/2024 [facility] Work Phone: Comment on above: Expected: 11/08/2023 (Approximate), Expires: 02/07/2024 Start: 11-08-2023 End: 09-26-2024 ECG COMPLETE ECG COMPLETE ECG Routine Non-rheumatic mitral regurgitation Persistent atrial fibrillation (HCC) Non-ischemic cardiomyopathy (HCC) Chronic HFrEF (heart failure with reduced ejection fraction) (HCC) Expected: 11/08/2023 (Approximate), Expires: 09/26/2024 [facility] Work Phone: Comment on above: Expected: 11/08/2023 (Approximate), Expires: 09/26/2024 Start: 10-25-2023 End: 01-24-2024 Basic metabolic 2000 panel - Serum or Plasma BASIC METABOLIC PNL Lab Routine Non-rheumatic mitral regurgitation Persistent atrial fibrillation (HCC) Non-ischemic cardiomyopathy (HCC) Chronic HFrEF (heart failure with reduced ejection fraction) (HCC) Expected: 10/25/2023, Expires: 01/24/2024 [facility] Work Phone: Comment on above: Expected: 10/25/2023 , Expires: 01/24/2024 Start: 10-25-2023 End: 09-26-2024 ECG COMPLETE ECG COMPLETE ECG Routine Non-rheumatic mitral regurgitation Persistent atrial fibrillation (HCC) Non-ischemic cardiomyopathy (HCC) Chronic HFrEF (heart failure with reduced ejection fraction) (HCC) Expected: 10/25/2023, Expires: 09/26/2024 [facility] Work Phone: Comment on above: Expected: 10/25/2023 , Expires: 09/26/2024 Start: 10-10-2023 End: 01-09-2024 Basic metabolic 2000 panel - Serum or Plasma BASIC METABOLIC PNL Lab Routine Non-rheumatic mitral regurgitation Persistent atrial fibrillation (HCC) Non-ischemic cardiomyopathy (HCC) Chronic HFrEF (heart failure with reduced ejection fraction) (HCC) Expected: 10/10/2023 (Approximate), Expires: 01/09/2024 [facility] Work Phone: Comment on above: Expected: 10/10/2023 (Approximate), Expires: 01/09/2024 Start: 10-10-2023 End: 09-26-2024 ECG COMPLETE ECG COMPLETE ECG Routine Non-rheumatic mitral regurgitation Persistent atrial fibrillation (HCC) Non-ischemic cardiomyopathy (HCC) Chronic HFrEF (heart failure with reduced ejection fraction) (HCC) Expected: 10/10/2023 (Approximate), Expires: 09/26/2024 [facility] Work Phone: Comment on above: Expected: 10/10/2023 (Approximate), Expires: 09/26/2024 Start: 10-06-2023 End: 10-06-2023 Patient encounter procedure 10/06/2023 1:00 PM EST [facility] [address] [place] [address] Peggy Nazario MD [address] [place] [address] [facility] Start: 09-26-2023 End: 12-26-2023 Basic metabolic 2000 panel - Serum or Plasma BASIC METABOLIC PNL Lab Routine Non-rheumatic mitral regurgitation Persistent atrial fibrillation (HCC) Non-ischemic cardiomyopathy (HCC) Chronic HFrEF (heart failure with reduced ejection fraction) (HCC) Expected: 09/26/2023, Expires: 12/26/2023 [facility] Work Phone: Comment on above: Expected: 09/26/2023 , Expires: 12/26/2023 Start: 08-14-2023 Advance Directive Discussion Advance Directive Discussion [facility] Start: 08-14-2023 [facility] Start: 04-14-2023 Influenza vaccination Influenza Vacc ine (#1) [facility] Start: 08-14-2022 Advance Directive Discussion Advance Directive Discussion [facility] Start: 08-14-2022 Depression Assessment Depression Ass essment [facility] Start: 02-15-[address] [facility] Start: 02-15-2019 Colorectal Cancer Screening Colorectal Cancer Screening [facility] Start: 02-15-2019 Screening for malign ant neoplasm of colon [facility] Start: 2013 Bone Density Screening Bone Density Screening [facility] Start: 2013 Pneumococcal Vaccine : 65+ (1 - PCV) Pneumococcal Vaccine: 65+ (1 - PCV) [facility] Start: 2013 Pneumococcal Vaccine : 65+ (1 of 1 - PCV) Pneumococcal Vaccine: 65+ (1 of 1 - PCV) [facility] Start: 2013 Screening for osteoporosis Bone Dens ity Screening [facility] Start: 2008 RSV Vaccine (1 - 1-d ose 60+ series) RSV Vaccine (1 - 1-dose 60+ series) [facility] Start: 1998 Shingrix Vaccine (1 of 2) Abdi grix Vaccine (1 of 2) [facility] Start: 1993 Cologuard (FIT-DNA) Cologuard (FIT-D NA) [facility] Start: [address] Colonography [facility] Start: 1993 Diabetes Screening Diabetes Screenin g [facility] Start: 1993 Fecal Occult Blood Fecal Occult Bloo d [facility] Start: 1993 Lipid 1996 panel - S theresa or Plasma Lipid Screening [facility] Start: 1993 Lipid panel Lipid Screening [facility] Start: 1993 Screening for malign ant neoplasm of colon 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 Start: 1966 Hepatitis C Screening Hepatitis C [facility] Start: 1966 Hepatitis C screening Hepatitis C [facility] Start: 1954 Pneumococcal Vaccine : 65+ Years (1 - PCV) Pneumococcal Vaccine: 65+ Years (1 - PCV) [facility] Start: 1948 Covid-19 Vaccine (#1) Covid-19 Vacci ne (#1) [facility] Start: 1948 Screening for malign ant neoplasm of colon [facility] Cystourethroscopy CYSTO.PANENDO Procedures Routine Feeling of incomplete bladder emptying Stricture of female urethra, unspecified stricture type Ordered: 09/26/2023 [facility] Work Phone: Comment on above: Ordered: 09/26/2023 [facility] Immunizations Immunization Date Immunization Notes Care Provider Olivia valdez 01-29-2018 tetanus toxoid, reduced diphtheria toxoid, and acellular pertussis vaccine, adsorbed Peggy Nazario MD Work Phone: [facility] 02-16-2016 tetanus and diphtheria toxoids, adsorbed, preservative free, for adult use (5 Lf of tetanus toxoid and 2 Lf of diphtheria toxoid) Peggy Nazario MD Work Phone: [facility] 12-14-2009 diphtheria, tetanus toxoids and pertussis vaccine Peggy Nazario MD Work Phone: [facility] 12-30-2004 diphtheria and tetanus toxoids, adsorbed for pediatric use Peggy Nazario MD Work Phone: [facility] NEGATED: Highlighted row has not occurred!07-20-2023 influenza virus vaccine, unspecified formulation Johan MARTINEZ [facility] Payers Date Payer Category Payer Unknown [id number] 2016 Unknown [id number] 2013 Medicare [id number] 2013 Medicare [id number] 1948 Unknown [id number] 2.16.84 0.1.732491.3.579.2.1258 1948 Unknown [id number] 2.16.84 0.1.747339.3.579.2.1258 1948 Unknown [id number] 2.16.84 0.1.922686.3.579.2.1258 1948 Unknown [id number] 2.16.840 .1.721458.3.579.2.1258 1948 Unknown [id number] 2.16.840 .1.459393.3.579.2.1258 1948 Unknown [id number] 2.16.840 .1.713062.3.579.2.1258 1948 Unknown [id number] 2.16.840 .1.753169.3.579.2.1258 1948 Unknown [id number] 2.16.8 40.1.459804.3.579.2.727 1948 Unknown [id number] 2.16.8 40.1.877054.3.579.2.72 1948 Unknown [id number] 2.16.8 40.1.941882.3.579.2.72 1948 Unknown [id number] 2.16.8 40.1.198638.3.579.2.72 1948 Unknown [id number] 2.16.8 40.1.985667.3.579.2.72 1948 Unknown [id number] 2.16.8 40.1.216959.3.579.2. 1948 Unknown [id number] 2.16.8 40.1.256498.3.579.2.72 1948 Unknown [id number] 2.16.8 40.1.006937.3.579.2. 1948 Unknown [id number] 2.16.8 40.1.215875.3.579.2. 1948 Unknown [id number] 2.16.8 40.1.627203.3.579.2.72 1948 Unknown [id number] 2.16.8 40.1.464256.3.579.2.72 1948 Unknown [id number] 2.16.8 40.1.135324.3.579.2.72 1948 Unknown [id number] 2.16.8 40.1.316642.3.579.2.72 1948 Unknown [id number] 2.16.8 40.1.721801.3.579.2.72 1948 Unknown [id number] 2.16.8 40.1.755785.3.579.2.72 1948 Unknown [id number] 2.16.8 40.1.698138.3.579.2.727 Social History Date Type Detail Facility Start: 02-23-2021 End: 07-20-2023 Tobacco smoking status Ex-smoker (finding) [facility] Comment on above: Denies Start: 07-08-2020 End: 07-20-2020 Sex Assigned At Female [facility] Tobacco smoking status Never [facility] Comment on above: Denies History of tobacco use Current smoker [facility] Start: 10-24-2017 End: 08-23-2023 Tobacco use and exposure Smokeless tobacco non-user [facility] Start: 10-24-2017 Alcohol intake Current drinke r of alcohol (finding) [facility] Start: 07-08-2020 End: 07-20-2020 History of Social function [facility] Start: 09-26-2012 End: 08-23-2023 Tobacco Comment Quit 1996. social smoker mostly [facility] Start: 1948 Sex Assigned At Not [facility] file [facility] History of tobacco use Cigarette Smoker [facility] Start: 09-12-2023 End: 09-26-2023 Alcohol intake Ex-drinker (finding) [facility] How often to you hav e a drink containing alcohol? Monthly or less [facility] How many standard drinks containing alcohol do you have on a typical day? 1 or 2 [facility] How often do you hav e 6 or more drinks on 1 occasion? Never [facility] Start: 04-12-2023 Alcohol Comment caffeine: 1-2 cups/day [facility] NEGATED: Highlighted rowStart: NINF History of tobacco use Passive smoker [facility] Functional Status Date Assessment Result Facility 10-05-2023 Functional Status N/A [facility] 09-17-2023 Functional Status N/A [facility] 09-12-2023 Functional Status N/A [facility] 07-21-2023 Functional Status No [facility] 07-20-2023 Functional Status No [facility] 07-07-2023 Functional Status N/A [facility] 07-03-2023 Functional Status N/A [facility] 07-02-2023 Functional Status [facility] 06-30-2023 Functional Status N/A [facility] 04-26-2023 Functional Status N/A [facility] 04-04-2023 Functional Status N/A [facility] 01-28-2023 Functional Status N/A [facility] 10-19-2022 Functional Status N/A [facility] 10-03-2022 Functional Status N/A [facility] 09-01-2022 Functional Status No [facility] 06-13-2022 Functional Status No [facility] 03-03-2022 Functional Status N/A [facility] 02-15-2022 Functional Status N/A [facility] Clinical Notes 12-24-2021 to 10-05-2023 Note Date & Type Note Facility 10-05-2023 Hospital Discharg e instructions Patient Education 10/05/2023 21:56:35 Constipation, Adult, Nmri-zb-Cybb Constipation, Adult Constipation is when a person has trouble pooping (having a bowel movement). When you have this condition, you may poop fewer than 3 times a week. Your poop (stool) may also be dry, hard, or bigger than normal. Follow these instructions at home: Eating and drinking Eat foods that have a lot of fiber, such as: ?Fresh fruits and vegetables. ?Whole grains. ?Beans. Eat less of foods that are low in fiber and high in fat and sugar, such as: ?Grenadian fries. ?Hamburgers. ?Cookies. ?Candy. ?Soda. Drink enough fluid to keep your pee (urine) pale yellow. General instructions Exercise regularly or as told by your doctor. Try to do 150 minutes of exercise each week. Go to the restroom when you feel like you need to poop. Do not hold it in. Take xaed-ytk-gwtacum and prescription medicines only as told by your doctor. These include any fiber supplements. When you poop: ?Do deep breathing while relaxing your lower belly (abdomen). ?Relax your pelvic floor. The pelvic floor is a group of muscles that support the rectum, bladder, and intestines (as well as the uterus in women). Watch your condition for any changes. Tell your doctor if you notice any. Keep all follow-up visits as told by your doctor. This is important. Contact a doctor if: You have pain that gets worse. You have a fever. You have not pooped for 4 days. You vomit. You are not hungry. You lose weight. You are bleeding from the opening of the butt (anus). You have thin, pencil-like poop. Get help right away if: You have a fever, and your symptoms suddenly get worse. You leak poop or have blood in your poop. Your belly feels hard or bigger than normal (bloated). You have very bad belly pain. You feel dizzy or you faint. Summary Constipation is when a person poops fewer than 3 times a week, has trouble pooping, or has poop that is dry, hard, or bigger than normal. Eat foods that have a lot of fiber. Drink enough fluid to keep your pee (urine) pale yellow. Take joez-anb-mhocahp and prescription medicines only as told by your doctor. These include any fiber supplements. This information is not intended to replace advice given to you by your health care provider. Make sure you discuss any questions you have with your health care provider. Document Revised: 06/17/2020 Document Reviewed: 06/17/2020 [employer] Patient Education 2022 [employer]. 10/05/2023 21:56:35 Gastroesophageal Reflux Disease, Adult, Aiwf-kl-Ysji Gastroesophageal Reflux Disease, Adult Gastroesophageal reflux (ZUNILDA) happens when acid from the stomach flows up into the tube that connects the mouth and the stomach (esophagus). Normally, food travels down the esophagus and stays in the stomach to be digested. With ZUNILDA, food and stomach acid sometimes move back up into the esophagus. You may have a disease called gastroesophageal reflux disease (GERD) if the reflux: Happens often. Causes frequent or very bad symptoms. Causes problems such as damage to the esophagus. When this happens, the esophagus becomes sore and swollen. Over time, GERD can make small holes (ulcers) in the lining of the esophagus. What are the causes? This condition is caused by a problem with the muscle between the esophagus and the stomach. When this muscle is weak or not normal, it does not close properly to keep food and acid from coming back up from the stomach. The muscle can be weak because of: Tobacco use. . Having a certain type of hernia (hiatal hernia). Alcohol use. Certain foods and drinks, such as coffee, chocolate, onions, and peppermint. What increases the risk? Being overweight. Having a disease that affects your connective tissue. Taking NSAIDs, such a ibuprofen. What are the signs or symptoms? Heartburn. Difficult or painful swallowing. The feeling of having a lump in the throat. A bitter taste in the mouth. Bad breath. Having a lot of saliva. Having an upset or bloated stomach. Burping. Chest pain. Different conditions can cause chest pain. Make sure you see your doctor if you have chest pain. Shortness of breath or wheezing. A long-term cough or a cough at night. Wearing away of the surface of teeth (tooth enamel). Weight loss. How is this treated? Making changes to your diet. Taking medicine. Having surgery. Treatment will depend on how bad your symptoms are. Follow these instructions at home: Eating and drinking Follow a diet as told by your doctor. You may need to avoid foods and drinks such as: ?Coffee and tea, with or without caffeine. ?Drinks that contain alcohol. ?Energy drinks and sports drinks. ?Bubbly (carbonated) drinks or sodas. ?Chocolate and cocoa. ?Peppermint and mint flavorings. ?Garlic and onions. ?Horseradish. ?Spicy and acidic foods. These include peppers, chili powder, mae powder, vinegar, hot sauces, and BBQ sauce. ?[place] fruit juices and citrus fruits, such as oranges, ronald, and limes. ?Tomato-based foods. These include red sauce, chili, salsa, and pizza with red sauce. ?Fried and fatty foods. These include donuts, south korean fries, potato chips, and high-fat dressings. ?High-fat meats. These include hot dogs, rib eye steak, sausage, ham, and ambriz. ?High-fat dairy items, such as whole milk, butter, and cream cheese. Eat small meals often. Avoid eating large meals. Avoid drinking large amounts of liquid with your meals. Avoid eating meals during the 2 3 hours before bedtime. Avoid lying down right after you eat. Do not exercise right after you eat. Lifestyle Do not smoke or use any products that contain nicotine or tobacco. If you need help quitting, ask your doctor. Try to lower your stress. If you need help doing this, ask your doctor. If you are overweight, lose an amount of weight that is healthy for you. Ask your doctor about a safe weight loss goal. General instructions Pay attention to any changes in your symptoms. Take owzr-ljg-caalrvf and prescription medicines only as told by your doctor. Do not take aspirin, ibuprofen, or other NSAIDs unless your doctor says it is okay. Wear loose clothes. Do not wear anything tight around your waist. Raise (elevate) the head of your bed about 6 inches (15 cm). You may need to use a wedge to do this. Avoid bending over if this makes your symptoms worse. Keep all follow-up visits. Contact a doctor if: You have new symptoms. You lose weight and you do not know why. You have trouble swallowing or it hurts to swallow. You have wheezing or a cough that keeps happening. You have a hoarse voice. Your symptoms do not get better with treatment. Get help right away if: You have sudden pain in your arms, neck, jaw, teeth, or back. You suddenly feel sweaty, dizzy, or light-headed. You have chest pain or shortness of breath. You vomit and the vomit is green, yellow, or black, or it looks like blood or coffee grounds. You faint. Your poop (stool) is red, bloody, or black. You cannot swallow, drink, or eat. These symptoms may represent a serious problem that is an emergency. Do not wait to see if the symptoms will go away. Get medical help right away. Call your local emergency services (911 in the [place] Do not drive yourself to the hospital. Summary If a person has gastroesophageal reflux disease (GERD), food and stomach acid move back up into the esophagus and cause symptoms or problems such as damage to the esophagus. Treatment will depend on how bad your symptoms are. Follow a diet as told by your doctor. Take all medicines only as told by your doctor. This information is not intended to replace advice given to you by your health care provider. Make sure you discuss any questions you have with your health care provider. Document Revised: 02/08/2021 Document Reviewed: 02/08/2021 [employer] Patient Education 2022 [employer]. 10/05/2023 21:56:35 Abdominal Pain, Adult, Xlgo-qq-Awly Abdominal Pain, Adult Many things can cause belly (abdominal) pain. Most times, belly pain is not dangerous. Many cases of belly pain can be watched and treated at home. Sometimes, though, belly pain is serious. Your doctor will try to find the cause of your belly pain. Follow these instructions at home: Medicines Take fxdt-ejg-wdepiyq and prescription medicines only as told by your doctor. Do not take medicines that help you poop (laxatives) unless told by your doctor. General instructions Watch your belly pain for any changes. Drink enough fluid to keep your pee (urine) pale yellow. Keep all follow-up visits as told by your doctor. This is important. Contact a doctor if: Your belly pain changes or gets worse. You are not hungry, or you lose weight without trying. You are having trouble pooping (constipated) or have watery poop (diarrhea) for more than 2 3 days. You have pain when you pee or poop. Your belly pain wakes you up at night. Your pain gets worse with meals, after eating, or with certain foods. You are vomiting and cannot keep anything down. You have a fever. You have blood in your pee. Get help right away if: Your pain does not go away as soon as your doctor says it should. You cannot stop vomiting. Your pain is only in areas of your belly, such as the right side or the left lower part of the belly. You have bloody or black poop, or poop that looks like tar. You have very bad pain, cramping, or bloating in your belly. You have signs of not having enough fluid or water in your body (dehydration), such as: ?Dark pee, very little pee, or no pee. ?Cracked lips. ?Dry mouth. ?Sunken eyes. ?Sleepiness. ?Weakness. You have trouble breathing or chest pain. Summary Many cases of belly pain can be watched and treated at home. Watch your belly pain for any changes. Take ahlf-mjt-ncewbai and prescription medicines only as told by your doctor. Contact a doctor if your belly pain changes or gets worse. Get help right away if you have very bad pain, cramping, or bloating in your belly. This information is not intended to replace advice given to you by your health care provider. Make sure you discuss any questions you have with your health care provider. Document Revised: 12/09/2019 Document Reviewed: 12/09/2019 [employer] Patient Education 2022 [employer]. Follow Up Care 10/05/2023 17:56:41 With:Johan HENRIQUEZ Address: [address] [place] [address]- [phone] Business (1) When:10/08/2023 20:57:11 With:Peggy Nazario Address: [address] [place] [address]- Business (1) When:Within 3 Day(s) [facility] 10-05-2023 Evaluation + Plan note Extrac deepak from: Title:ED Note Author:Nica Knox PA-C Date:10/05/23 1. Constipation (K59.00: Con stipation, unspecified) Orders: Al hydroxide/Mg hydroxide/simethicone, 30 mL, Susp-Oral, Oral, Once, Stop date 10/05/23 20:48:00 EST, STAT, Start date 10/05/23 20:48:00 EST atropine/hyoscyamine/PB/scopolamine, 10 mL, Elixir, Oral, Once, Stop date 10/05/23 20:48:00 EST, STAT, Start date 10/05/23 20:48:00 EST bisacodyl, 10 mg = 1 supp, Supp, Rectal, Once, Stop date 10/05/23 21:40:00 EST, STAT, Start date 10/05/23 21:40:00 EST, 10/05/23 21:40:00 EST bisacodyl, 10 mg = 1 supp, Supp, Rectal, Once, Stop date 10/05/23 21:40:00 EST, STAT, Start date 10/05/23 21:40:00 EST, 10/05/23 21:40:00 EST carvedilol, 3.125 mg = 1 tab(s), Oral, BID, X 14 day(s), # 28 tab(s), Refills(s) 0, Pharmacy: [id number], 165, cm, 10/05/23 18:07:00 EST, Height/Length Dosing, 50.3, kg, 10/05/23 18:07:00 EST, Weight Dosing lidocaine topical, 200 mg, 10 mL, Soln-Oral, Oral, Once, Stop date 10/05/23 20:48:00 EST, STAT, Start date 10/05/23 20:48:00 EST ECG 12 Lead Adult Future Appointments Appointment Date:01/24/2024 02:30:00 PM Scheduled Provider:Micheline BROOKS MD Location:[facility] Appointment Type:URO Office Visit Future Scheduled Tests Laboratory* Basic Metabolic Panel 07/12/23 * Digoxin Level 07/12/23 [facility]02-19-2024 Miscellaneous Notes* Telephone Encounter - Junito Mendes - 10/02/2023 9:35 AM EST October 02, 2023 Patient Contact Number: [phone] Patient last seen within the last year: Yes Date of last office visit: 09/26/2023 Reason For Call: Test Results; pt requesting to go over 09/26 labs Physician: Alea Harley MD Patient was informed that non-urgent calls may be returned within the next three business days. Yes Junito Mendes documented [facility] encounter[facility] NoteHNO ID: [id number] Author: RAPHAEL GOLDSMITH MD Service: ? Author Type: Physician Type: Progress Notes Filed: 09/26/2023 16:38 Note Text: [facility]IC[facility] AND RECONSTRUCTIVE SURGERY HISTORY CHIEF COMPLAINT: Urethral Stricture HPI : 73 year old female hx sigmoid colectomy (1996), NICM, HTN, Afib w RBR, MR, TR, HF, and urethral stricture s/p recent dilation 04/2023 She initially had difficulty urinating in 2012 and was following with Dr. Tinsley. At that time she described feelings of incomplete emptying, intermittency, hesitancy. Recently, she complains of urethral (possibly vaginal?) pain. She reports a sudden stop in urination seemingly mid-flow. She will then Valsalva with an additional ~100 cc coming out. Sometimes she will Valsalva with no urine returning. She will wait for a few minutes then will continue voiding. She denies dysuria, hematuria, incontinence, pelvic pain. She has underwent numerous urethral dilations but after her most recent one, she reports experiencing some retention. HISTORIES: PAST MEDICAL HISTORY Diagnosis Date Anxiety state, unspecified GERD (gastroesophageal reflux disease) Heart murmur Hemorrhoids HTN (hypertension) Hypothyroid IBS (irritable bowel syndrome) Mitral regurgitation Proctocolitis Rectal pain Tricuspid regurgitation Urethral stricture PAST SURGICAL HISTORY Procedure Laterality Date EXC CYST/ABERRANT BREAST TISSUE OPEN LESION PAST SURGICAL HISTORY OF 1995 tailbone surgery TOTAL ABDOMINAL HYSTERECT W/WO RMVL TUBE OVARY Hysterectomy, MIR UNLISTED PROCEDURE ABDOMEN PERITONEUM AND OMENTUM 1996 Sigmoid colectomy with primary end-to-end colorectal anastomosis. MEDICATIONS: Current Outpatient Medications on File Prior to Visit Medication Sig apixaban (ELIQUIS) 5 mg tab(s) Take 1 tablet by mouth two times a day. atorvastatin (LIPITOR) 40 mg tablet Take 1 tablet by mouth daily at bedtime. carvedilol (COREG) 12.5 mg tablet Take 1 tablet by mouth two times a day with meals. polyethylene glycol 3350 17 gram/dose powder Take 17 g by mouth once daily as needed. Dissolve dose in 4 - 8 ounces of liquid and take as directed. spironolactone (ALDACTONE) 25 mg tablet Take a half tablet by mouth once daily. digoxin (LANOXIN) 125 mcg (0.125 mg) tablet Take HALF tablet by mouth daily (not one complete tablet) LORazepam (ATIVAN) 1 mg tablet Take 1 mg by mouth every 6 hours as needed for anxiety. No current facility-administered medications on file prior to visit. PHYSICAL EXAM: ABDOMEN: Soft, non-tender PVR: 45 mL via bladder US UA: Pending IMPRESSION AND PLAN: ASSESSMENT/PLAN: 1. Feeling of incomplete bladder emptying - ICD9: 788.21, ICD10: R39.14 Patient without retention, feelings of urethral pain, plan for cystoscopy with possible urethral dilation Krysta Zhu MD Electronically signed STAFF NOTE: I have personally modified the HPI AND ROS, performed a PE AND a face to face diagnostic evaluation on this patient AND discussed the above plan. Signed: Raphael Goldsmith MD [facility] Electronically signedG[facility]02-[facility] Nurse Note* Chrissy Roberts OCCA - 09/26/2023 2:28 PM EST Post Void Residual done on patient with 45 cc residual volume remaining. notified. CARISSA Ferrell documented in this encounterSt. [facility]02-[facility] History of Present illness Narrative* Raphael Goldsmith MD - 09/26/2023 2:15 PM EST [facility] PELVIC MEDICINE AND RECONSTRUCTIVE SURGERY HISTORY CHIEF COMPLAINT: Urethral Stricture HPI : 73 year old female hx sigmoid colectomy (1996), NICM, HTN, Afib w RBR, MR, TR, HF, and urethral stricture s/p recent dilation 04/2023 She initially had difficulty urinating in 2012 and was following with Dr. Tinsley. At that time she described feelings of incomplete emptying, intermittency, hesitancy. Recently, she complains of urethral (possibly vaginal?) pain. She reports a sudden stop in urination seemingly mid-flow. She will then Valsalva with an additional ~100 cc coming out. Sometimes she will Valsalva with no urine returning. She will wait for a few minutes then will continue voiding. She denies dysuria, hematuria, incontinence, pelvic pain. She has underwent numerous urethral dilations but after her most recent one, she reports experiencing some retention. HISTORIES: PAST MEDICAL HISTORY Diagnosis Date Anxiety state, unspecified GERD (gastroesophageal reflux disease) Heart murmur Hemorrhoids HTN (hypertension) Hypothyroid IBS (irritable bowel syndrome) Mitral regurgitation Proctocolitis Rectal pain Tricuspid regurgitation Urethral stricture PAST SURGICAL HISTORY Procedure Laterality Date EXC CYST/ABERRANT BREAST TISSUE OPEN / LESION PAST SURGICAL HISTORY OF 1995 tailbone surgery TOTAL ABDOMINAL HYSTERECT W/WO RMVL TUBE OVARY Hysterectomy, MIR UNLISTED PROCEDURE ABDOMEN PERITONEUM & OMENTUM 1996 Sigmoid colectomy with primary end-to-end colorectal anastomosis. MEDICATIONS: Current Outpatient Medications on File Prior to Visit Medication Sig apixaban (ELIQUIS) 5 mg tab(s) Take 1 tablet by mouth two times a day. atorvastatin (LIPITOR) 40 mg tablet Take 1 tablet by mouth daily at bedtime. carvedilol (COREG) 12.5 mg tablet Take 1 tablet by mouth two times a day with meals. polyethylene glycol 3350 17 gram/dose powder Take 17 g by mouth once daily as needed. Dissolve dosein 4 - 8 ounces of liquid and take as directed. spironolactone (ALDACTONE) 25 mg tablet Take a half tablet by mouth once daily. digoxin (LANOXIN) 125 mcg (0.125 mg) tablet Take HALF tablet by mouth daily (not one complete tablet) LORazepam (ATIVAN) 1 mg tablet Take 1 mg by mouth every 6 hours as needed for anxiety. No current facility-administered medications on file prior to visit. PHYSICAL EXAM: ABDOMEN: Soft, non-tender PVR: 45 mL via bladder US UA: Pending IMPRESSION & PLAN: ASSESSMENT/PLAN: 1. Feeling of incomplete bladder emptying - ICD9: 788.21, ICD10: R39.14 Patient without retention, feelings of urethral pain, plan for cystoscopy with possible urethral dilation Krysta Zhu MD Electronically signed STAFF NOTE: I have personally modified the HPI & ROS, performed a PE & a face to face diagnostic evaluation on this patient & discussed the above plan. Signed: Raphael Goldsmith MD [facility] documented in this encounterSt. [facility] Hospital02-13-2024 NotePatient Outreach (UROLMN) ASYA ASENCIO I ([id number]) 1950 F Date Time Provider Department 09/26/23 RAPHAEL GOLDSMITH UROLMN During your visit today, we recorded the following information about you: Allergies As of Date: 09/26/2023 Noted Allergy Reaction CEPHALEXIN 01/30/2023 16 - Unknown DEMORAL (MEPERIDINE) 05/14/2010 14 - Other: See Comments Comments: Patient does not know if she is allergic but know she is not suppose to take it. EGG 08/29/2023 5 - Intolerance 8 - GI Upset Comments: Per patient. LATEX 09/26/2012 2 - Rash 4 - Hives MORPHINE 04/12/2023 16 - Unknown Comments: Other Reaction(s): Unknown cause SULFA (SULFONAMIDE ANTIBIOTICS) 07/25/2023 5 - Intolerance Date Reviewed: 09/26/2023 Reviewed by: Chrissy Roberts OCCA - Fully Assessed Visit Diagnosis:Screening for genitourinary condition [Z13.89] Order(s):URINALYSIS, REFLEX MICROSCOPIC [SCG9265] Order #: [id number]. #:[id number] Prescriptions as of 09/29/2023 - pantoprazole DR (PROTONIX) 40 mg tablet Take 1 tablet by mouth once daily. - lisinopril (ZESTRIL) 10 mg tablet Take 0.5 tablets by mouth once daily. - carvedilol (COREG) 12.5 mg tablet Take 12.5 mg by mouth. - apixaban (ELIQUIS) 5 mg tab(s) Take 1 tablet by mouth two times a day. - atorvastatin (LIPITOR) 40 mg tablet Take 1 tablet by mouth daily at bedtime. - carvedilol (COREG) 12.5 mg tablet Take 1 tablet by mouth two times a day with meals. - polyethylene glycol 3350 17 gram/dose powder Take 17 g by mouth once daily as needed. Dissolve dose in 4 - 8 ounces of liquid and take as directed. - spironolactone (ALDACTONE) 25 mg tablet Take a half tablet by mouth once daily. - digoxin (LANOXIN) 125 mcg (0.125 mg) tablet Take HALF tablet by mouth daily (not one complete tablet) - LORazepam (ATIVAN) 1 mg tablet Take 1 mg by mouth every 6 hours as needed for anxiety. Problem List As Of Date 09/26/2023 Noted Resolved INTESTINAL OBSTRUCT NOS [K56.609] 03/13/2009 Incomplete bladder emptying [R33.9] 09/26/2012 Non-rheumatic mitral regurgitation [I34.0] 07/25/2023 Nonrheumatic tricuspid valve regurgitation [I36*07/25/2023 Mitral valve regurgitation due to cardiomyopath*08/24/2023 Acute on chronic systolic congestive heart fail*08/26/2023 08/27/2023 Cardiomyopathy, nonischemic (HCC) [I42.8] 08/26/2023 Atrial fibrillation, persistent (HCC) [I48.19] 08/27/2023 Anxiety [F41.9] 08/27/2023 Urethral stricture [N35.919] 08/27/2023 Primary hypertension [I10] 08/27/2023 Adjustment disorder with mixed anxiety and depr*08/29/2023 Generalized anxiety disorder [F41.1] 08/29/2023 Severe protein-calorie malnutrition (HCC) [E43] 08/30/2023 Encounter Status:Closed by [facility], PRODUSER on 09/29/23[facility] NoteHNO ID: [id number] Author: ANA RIVAS APRN.TAILB Service: ? Author Type: Nurse Practitioner Type: Progress Notes Filed: 09/26/2023 10:41 Note Text: [facility] Department of Cardiovascular Medicine SECTION OF CLINICAL CARDIOLOGY OUTPATIENT VISIT DATE September 26, 2023 OUTPATIENT VISIT TYPE ESTABLISHED PRIMARY CARE PHYSICIAN: Peggy Nazario MD [address] [place] [address] REFERRING PHYSICIAN: Dr. Alea Harley [phone] [facility] [address] CHIEF COMPLAINT: Established Patient HISTORY OF PRESENT ILLNESS: Ms. Asencio is a 73 year old female who presents today for a cardiovascular medicine follow-up visit. She is an established patient of Dr. Harley. Patients past medical history is significant for: HFrEF (40-45%) Atrial fibrillation, persistent on apixaban, digoxin and carvedilol S/p KRYSTINA DCCV on 08/28/2023 Heart murmur Tricuspid regurgitation Moderate-severe mitral valve regurgitation Essential hypertension IBS Hypothyroid Anxiety GERD Ms. Asencio was last evaluated in office by Dr. Harley on 08/23/2023. Impression below for further reference: Ms. Asencio is a 73 year old female with a recent history of atrial fibrillation and RVR while undergoing management of urinary bladder outlet obstruction. Onset is not fully known but since her hospitalization in mid to late June it has been persistent and it would seem better rate controlled. In association with this she has been found to have moderate to severe central MR in the setting of a dilated and diffusely hypo-contractile LV with EF estimates on the order of 30-40% depending on whether she was on rate modulating Rx or off suggesting that in the absence of significant CAD this is more likely tachy mediated than primary. The issue now is whether there is indication to address her MV - ie. surgical repair plus MAZE or optimized medical Rx such as regaining SR, further LV unloading (low dose ARNI vis a vis ARB), if cost permissive an SGLT-2 inh, and depending on resultant nature of LV performance then percutaneous repair - mitral clip. Great deal to sort out at the moment. She is adamantly against more medications making what is already a difficult challenge all the more difficult. Nonetheless, she has additional testing set up including a repeat echo later on today which will I think clarify further management a bit better. Will review with Dr. Sorto in [facility]. He will be seeing her later today, final recommendations at that time. Interval Events since MICHAEL: Here today for routine follow up re: GDMT for HFrEF, mitral regurgitation, AF Recent local hospital admission re: allergic reaction to valsartan Evaluated by Dr. Sorto in [facility] re: candidacy for cardiac surgery. Deemed high risk with recommendations for TMVr/TTVr input. Taking all medications as prescribed. She denies abdominal distention, chest pain, orthopnea, cough, edema, palpitations, PND, lightheadedness or syncope. PAST MEDICAL HISTORY Diagnosis Date Anxiety state, unspecified GERD (gastroesophageal reflux disease) Heart murmur Hemorrhoids HTN (hypertension) Hypothyroid IBS (irritable bowel syndrome) Mitral regurgitation Proctocolitis Rectal pain Tricuspid regurgitation Urethral stricture PAST SURGICAL HISTORY Procedure Laterality Date EXC CYST/ABERRANT BREAST TISSUE OPEN LESION PAST SURGICAL HISTORY OF 1995 tailbone surgery TOTAL ABDOMINAL HYSTERECT W/WO RMVL TUBE OVARY Hysterectomy, MIR UNLISTED PROCEDURE ABDOMEN PERITONEUM AND OMENTUM 1996 Sigmoid colectomy with primary end-to-end colorectal anastomosis. SOCIAL HISTORY Social History Tobacco Use Smoking status: Former Smokeless tobacco: Never Tobacco comments: Quit 1996. social smoker mostly Vaping Use Vaping Use: Never used Substance Use Topics Alcohol use: Not Currently Drug use: No FAMILY HISTORY Problem Relation Age of Onset Diabetes Mother Heart disease Mother Heart disease Father ALLERGIES: ALLERGIES Allergen Reactions Cephalexin Unknown Demoral [Meperidine] Other: See Comments Patient does not know if she is allergic but know she is not suppose to take it. Egg Intolerance, GI Upset Per patient. Latex Rash, Hives Morphine Unknown Other Reaction(s): Unknown cause Sulfa (Sulfonamide * Intolerance MEDICATIONS: apixaban (ELIQUIS) 5 mg tab(s) Take 1 tablet by mouth two times a day. atorvastatin (LIPITOR) 40 mg tablet Take 1 tablet by mouth daily at bedtime. carvedilol (COREG) 12.5 mg tablet Take 1 tablet by mouth two times a day with meals. polyethylene glycol 3350 17 gram/dose powder Take 17 g by mouth once daily as needed. Dissolve dose in 4 - 8 ounces of liquid and take as directed. spironolactone (ALDACTONE) 25 mg tablet Take a half tablet by mouth once daily. digoxin (LANOXIN) 125 mcg (0.125 mg) tabl (more content not included)... [facility] Instructions* Patient Instructions* Ana Rivas APRN.CNP - 09/26/2023 9:50 AM EST -Get labs today in J1-4 -Continue current medications ----start lisinopril 5 mg once daily ----start pantoprazole 40 mg once daily in the morning to protect your gut with the blood thinner -Repeat labs in 2 weeks time. -Continue a heart healthy, low salt/fat diet -Continue to monitor blood pressure at home at least once daily, 1-2 hours after morning medications--record. -Continue to monitor weight at home-record. -Continue to increase physical activity as tolerated. -Follow up with TALIB Davidson in 2 weeks with labs and EKG -Follow up with TALIB Davidson in 4 weeks with labs and EKG -Follow up with Dr. Harley in 6 weeks with labs and EKG documented in this encounterSt. [facility]02-[facility] History of Present illness Narrative* Ana Rivas APRN.CNP - 09/26/2023 8:51 AM EST Images from the original note were not included. [facility] Department of Cardiovascular Medicine SECTION OF CLINICAL CARDIOLOGY OUTPATIENT VISIT DATE September 26, 2023 OUTPATIENT VISIT TYPE ESTABLISHED PRIMARY CARE PHYSICIAN: Peggy Nazario MD [address] [place] [address] REFERRING PHYSICIAN: Dr. Alea Harley [id number] [facility] [address] CHIEF COMPLAINT: Established Patient HISTORY OF PRESENT ILLNESS: Ms. Asencio is a 73 year old female who presents today for a cardiovascular medicine follow-up visit. She is an established patient of Dr. Harley. Patients past medical history is significant for: HFrEF (40-45%) Atrial fibrillation, persistent on apixaban, digoxin and carvedilol S/p KRYSTINA DCCV on 08/28/2023 Heart murmur Tricuspid regurgitation Moderate-severe mitral valve regurgitation Essential hypertension IBS Hypothyroid Anxiety GERD Ms. Asencio was last evaluated in office by Dr. Harley on 08/23/2023. Impression below for further reference: Ms. Asencio is a 73 year old female with a recent history of atrial fibrillation and RVR while undergoing management of urinary bladder outlet obstruction. Onset is not fully known but since her hospitalization in mid to late June it has been persistent and it would seem better rate controlled. Inassociation with this she has been found to have moderate to severe central MR in the setting of a dilated and diffusely hypo-contractile LV with EF estimates on the order of 30-40% depending on whether she was on rate modulating Rx or off suggesting that in the absence of significant CAD this is more likely tachy mediated than primary. The issue now is whether there is indication to address her MV - ie. surgical repair plus MAZE or optimized medical Rx such as regaining SR, further LV unloading (low dose ARNI vis a vis ARB), if cost permissive an SGLT-2 inh, and depending on resultant natureof LV performance then percutaneous repair - mitral clip. Great deal to sort out at the moment. Sheis adamantly against more medications making what is already a difficult challenge all the more difficult. Nonetheless, she has additional testing set up including a repeat echo later on today which will I think clarify further management a bit better. Will review with Dr. Sorto in CTS. He will be seeing her later today, final recommendations at that time. Interval Events since MICHAEL: Here today for routine follow up re: GDMT for HFrEF, mitral regurgitation, AF Recent local hospital admission re: allergic reaction to valsartan Evaluated by Dr. Sorto in CTS re: candidacy for cardiac surgery. Deemed high risk with recommendations for TMVr/TTVr input. Taking all medications as prescribed. She denies abdominal distention, chest pain, orthopnea, cough, edema, palpitations, PND, lightheadedness or syncope. PAST MEDICAL HISTORY Diagnosis Date Anxiety state, unspecified GERD (gastroesophageal reflux disease) Heart murmur Hemorrhoids HTN (hypertension) Hypothyroid IBS (irritable bowel syndrome) Mitral regurgitation Proctocolitis Rectal pain Tricuspid regurgitation Urethral stricture PAST SURGICAL HISTORY Procedure Laterality Date EXC CYST/ABERRANT BREAST TISSUE OPEN 1/> LESION PAST SURGICAL HISTORY OF 1995 tailbone surgery TOTAL ABDOMINAL HYSTERECT W/WO RMVL TUBE OVARY Hysterectomy, MIR UNLISTED PROCEDURE ABDOMEN PERITONEUM & OMENTUM 1996 Sigmoid colectomy with primary end-to-end colorectal anastomosis. SOCIAL HISTORY Social History Tobacco Use Smoking status: Former Smokeless tobacco: Never Tobacco comments: Quit 1996. social smoker mostly Vaping Use Vaping Use: Never used Substance Use Topics Alcohol use: Not Currently Drug use: No FAMILY HISTORY Problem Relation Age of Onset Diabetes Mother Heart disease Mother Heart disease Father ALLERGIES: ALLERGIES Allergen Reactions Cephalexin Unknown Demoral [Meperidine] Other: See Comments Patient does not know if she is allergic but know she is not suppose to take it. Egg Intolerance, GI Upset Per patient. Latex Rash, Hives Morphine Unknown Other Reaction(s): Unknown cause Sulfa (Sulfonamide * Intolerance MEDICATIONS: apixaban (ELIQUIS) 5 mg tab(s) Take 1 tablet by mouth two times a day. atorvastatin (LIPITOR) 40 mg tablet Take 1 tablet by mouth daily at bedtime. carvedilol (COREG) 12.5 mg tablet Take 1 tablet by mouth two times a day with meals. polyethylene glycol 3350 17 gram/dose powder Take 17 g by mouth once daily as needed. Dissolve dosein 4 - 8 ounces of liquid and take as directed. spironolactone (ALDACTONE) 25 mg tablet Take a half tablet by mouth once daily. digoxin (LANOXIN) 125 mcg (0.125 mg) tablet Take HALF tablet by mouth daily (not one complete tablet) LORazepam (ATIVAN) 1 mg tablet Take 1 mg by mouth every 6 hours as needed for anxiety. pantoprazole DR (PROTONIX) 40 mg tablet Take 1 tablet by mouth once daily. lisinopril (ZESTRIL) 10 mg tablet Take 0.5 tablets by mouth once daily. REVIEW OF SYSTEMS: Positives in bold: GENERAL: Negative for: Weight loss or gain, Fever or Chills, Weakness and Sleep difficulties. HEENT: Negative for: Headache, Impaired Vision, Glasses, Hearing Impairment, Ringing in Ears, Nosebleeds, Poor dental care, Bleeding Gums, Dentures NECK: Negative for: Swelling, Pain, Stiffness RESPIRATORY: Negative for: Cough, Blood in Sputum, Shortness of breath, Wheezing, Apnea GASTROINTESTINAL: Negative for: Trouble swallowing, Heartburn, Change in bowel habits, Blood in stool, Dark black stools MUSCULOSKELETAL: Negative for: Muscle or joint pain, Stiffness , Joint swelling NEUROLOGIC/PSYCHIATRIC: Negative for: Weakness, Paralysis, Numbness, Tingling, Tremor, Nervousness,Depressed mood, Memory loss SKIN: Negative for: Rashes, Itching HEMATOLOGICAL/LYMPHATIC: Negative for: Easy bruising , Easy bleeding ENDOCRINE: Negative for: Heat or cold intolerance, Excessive sweating, Frequent urination, Frequentthirst PHYSICAL EXAMINATION: BP 118/57 (BP Site: Right Arm, BP Position: Sitting, BP Cuff Size: Regular Adult) Pulse 72 Resp20 Ht 165.1 cm (5' 5 ) Wt 50.8 kg (112 lb) SpO2 98% BMI 18.64 kg/m General: Well appearing, in no acute distress. Skin: No clubbing, no cyanosis. Eyes: Extra ocular movements intact Oropharynx: Teeth in good repair. Neck: No jugular venous distention. Lungs: Clear to auscultation bilaterally, no wheezing or rhonchi. Heart: Regular rhythm, PMI not displaced, S1, S2 normal, + murmur Abdomen: Soft, nontender, bowel sounds normal Extremities: No peripheral edema . Grade 2/4 distal pulses bilaterally. Neuro: Oriented to person, place and time, alert, cooperative, gait coordinated. CARDIOVASCULAR MEDICINE TESTING: Electrocardiogram: 09/26/2023: Laboratory Testin09/26/2023: In process Last ECHO Result Conclusion ECHO Collected: 08/23/2023 2:15 PM (Edited Result - FINAL) Impression: CONCLUSIONS: - Exam indication: Valvular heart disease - The left ventricle is dilated. Left ventricular systolic function is mildly decreased. EF = 45 5% (visual est.) Beat to beat variation in LV systolic function. - The right ventricle is normal in size. Right ventricular systolic function is normal. - The left atrial cavity is mildly dilated. - The right atrial cavity is dilated. - There is moderate (2+ - 3+) holosystolic mitral valve regurgitation. In certain views it appears closer to 3+ (A3c, clip 66 for instance). Multiple MR jets, PISA estimation is limited. Suboptimal PV flow waveform. MR is better seen and more prominent on outside KRYSTINA 07/21/23. - There is moderately severe (3+) tricuspid valve regurgitation. - Estimated right ventricular systolic pressure is 44 mmHg consistent with mild pulmonary hypertension. Estimated right atrial pressure is 8 mmHg based on IVC assessment. - The patient has not had a prior CC echocardiographic exam for comparison. * * * Final (Updated) * * * Last KRYSTINA Result Conclusion ECHO TRANSESOPHAGEAL Collected: 08/28/2023 3:59 PM (Final result) Impression: CONCLUSIONS: - Exam indication: Pre Cardioversion, Pre AF Ablation - The left ventricle is dilated. Left ventricular systolic function is moderately decreased. EF = 40 5% (visual est.) No transgastric views to minimize patient discomfort. - The right ventricle is normal in size. Right ventricular systolic function is mildly decreased. - The left atrial cavity is dilated. No HA thrombus. Peak emptying velocity varies from 15- 31.0 cm/s. - The right atrial cavity is dilated. - There is moderately severe (3+) holosystolic mitral valve regurgitation. Regurgitant orifice area (PISA) is 0.32 cm . Mild anterior leaflet override. Two regurgitant jets, one originating from the medial aspect of the coaptation line, the other just lateral of center. May be atrial functional MR. - There is moderately severe (3+) tricuspid valve regurgitation. Suspect atrial functional TR. Predominant jet between septal and posterior leaflets. - Exam was compared with the prior CC echocardiographic exam performed on 08/23/2023. Similar findings. * * * Final * * * Last EKG Result Conclusion ECG COMPLETE Collected: 08/28/2023 6:02 PM (Final result) Impression: ATRIAL FLUTTER WITH VARIABLE A-V CONDUCTION ABNORMAL ECG Confirmed by fellow NANCY MCMAHON, ZIGGY ([id number]) on 09/04/2023 1:50:09 PM Confirmed by MD DEJUAN, PhD, KHUSHI ([id number]) on 09/11/2023 1:23:[address] Result Conclusion CTA CHEST (GATED) W IVCON Exam End: 08/23/2023 7:47 AM (Final result) Impression: IMPRESSION: Dilated left ventricle, biatrial enlargement. Mitral valve is noncalcified. Normal caliber thoracic aorta. Yard Stocker[facility] Transcribe Date/Time: Aug 23 2023 11:20A Dictated by : SARAH CARNEY MD This examination was interpreted and the report reviewed and electronically signed by: SARAH CARNEY MD on Aug 23 2023 12:14PM EST Most recent labs on file: Component Latest Ref Rng & Units 08/30/2023 08/31/2023 Protein, Total 6.3 - 8.0 g/dL 6.3 5.9 (L) Albumin 3.9 - 4.9 g/dL 3.9 3.5 (L) Calcium 8.5 - 10.2 mg/dL 9.3 9.2 Bilirubin, Total 0.2 - 1.3 mg/dL 0.5 0.5 Alkaline Phosphatase 34 - 123 U/L 65 52 AST 13 - 35 U/L 24 20 ALT 7 - 38 U/L 28 24 Glucose 74 - 99 mg/dL 149 (H) 85 BUN 7 - 21 mg/dL 19 16 Creatinine 0.58 - 0.96 mg/dL 1.11 (H) 0.90 Sodium 136 - 144 mmol/L 137 137 Potassium 3.7 - 5.1 mmol/L 5.0 4.3 Chloride 97 - 105 mmol/L 103 103 CO2 22 - 30 mmol/L 25 25 Anion Gap 9 - 18 mmol/L 9 9 eGFR >=60 mL/min/1.73m 52 (L) 67 WBC 3.70 - 11.00 k/uL 6.51 6.11 RBC 3.90 - 5.20 m/uL 4.22 4.04 Hemoglobin 11.5 - 15.5 g/dL 12.6 11.9 Hematocrit 36.0 - 46.0 % 38.9 36.1 MCV 80.0 - 100.0 fL 92.2 89.4 MCH 26.0 - 34.0 pg 29.9 29.5 MCHC 30.5 - 36.0 g/dL 32.4 33.0 RDW-CV 11.5 - 15.0 % 13.1 12.9 Platelet Count 150 - 400 k/uL 185 175 MPV 9.0 - 12.7 fL 10.4 10.2 Absolute nRBC <0.01 k/uL <0.01 <0.01 Magnesium 1.7 - 2.3 mg/dL 2.2 2.2 I have personally reviewed the Electrocardiogram, Laboratory Testing, and Echocardiogram. IMPRESSION: Ms. Asencio is a 73 year old female who presents today for a Cardiovascular Medicine follow up visit. She is an established Clinical patient of Dr. Harley. Patients past medical history, physical, medications, tests, and results are as detailed above. Today Ms. Asencio overall feels okay. Here today for GDMT optimization. She is taking all medications as prescribed including apixaban, atorvastatin, carvedilol, spironolactone, digoxin. Her blood pressure in office is normotensive, and her pulse is stable, regular. She does not obtain blood pressure and pulse at home. EKG from today reveals normal sinus rhythm. Patient is here for routine follow up. We addressed the following problems today: HFrEF (40-45%) Atrial fibrillation, persistent on apixaban, digoxin and carvedilol S/p KRYSTINA DCCV on 08/28/2023 Heart murmur Tricuspid regurgitation Moderate-severe mitral valve regurgitation Essential hypertension Ms. Asencio appears euvolemic and hemodynamically stable today in office. She has no signs of acute decompensation or overt fluid volume overload. Weight stable. No JVD, abdominal distention or BLE edema. Blood pressure on current medication regimen. Ms. Asencio presents today for add on visit. Recently hospitalized locally for allergic reaction to valsartan. Had tremors and reflux. Would like to avoid if able. Her current GDMT for HFrEF (35-40%) includes carvedilol, spironolactone, digoxin. Will stop valsartan, add low dose lisinopril 5 mg once daily. Update labs today and again in 2 weeks time when she returns for upward titration to 10 mg oncedaily. Also, at next follow up consider addition of Jardiance 10 mg once daily with repeat labs. Patient agreeable. Will attempt to optimize medication regimen before reconsideration of mitral valve intervention. Evaluated by Dr. Sorto in CTS re: candidacy for cardiac surgery. Deemed high risk with recommendations for TMVr/TTVr input. In regards to AF. She underwent successful cardioversion on 08/28. Compliant with apixaban without issues of bleeding. Reports some GI upset with medication. Add pantoprazole to regimen in AM. No issues with GI bleeding per patient report. Maintain current dosage of digoxin and carvedilol. EKG todaynormal sinus rhythm. CHADS2-Vasc Score Breakdown 5 Total Score 1 Female 2 Age >= 75 years old 1 History of CHF 1 History of hypertension Most recent testing, including EKG, echo and labs on file, were reviewed and are detailed above. She is normotensive, euvolemic, and stable from a cardiac perspective. RTC as detailed below. PLAN AND RECOMMENDATIONS: As discussed in office with Dr. Harley: -Get labs today in J1-4 -Continue current medications ----start lisinopril 5 mg once daily ----start pantoprazole 40 mg once daily in the morning to protect your gut with the blood thinner -Repeat labs in 2 weeks time. -Continue a heart healthy, low salt/fat diet -Continue to monitor blood pressure at home at least once daily, 1-2 hours after morning medications--record. -Continue to monitor weight at home-record. -Continue to increase physical activity as tolerated. -Follow up with TALIB Davidson in 2 weeks with labs and EKG ------if stable increase lisinopril -Follow up with TALIB Davidson in 4 weeks with labs and EKG ------if stable add Jardiance 10 mg once daily -Follow up with Dr. Harley in 6 weeks with labs and EKG ------for consideration of mitral valve intervention after GDMT optimization. I personally interviewed, confirmed and edited the above information if obtained by others. CONTACT INFORMATION: Ana Rivas APRN.TALIB I personally spent 45 minutes with the patient reviewing cardiac history, patient complaints, performing a physical exam, and developing a plan of care. documented in [facility] Miscellaneous Notes* Telephone Encounter - Carmina Reyna RN - 09/21/2023 4:[address] Harley would like patient to come in and be seen to go over this in greater detail. Work on setting her up with an FACILITY COORDINATOR and Dr. Harley would like to be in for the appointment. Next Monday. Carmina Reyna RN * Telephone Encounter - Junito Mendes 09/21/2023 3:33 PM EST September 21, 2023 Patient Contact Number: [phone] Patient last seen within the last year: Yes Date of last office visit: 08/23/2023 Reason For Call: Medication Issue/Question: Pt calling to follow up on recent ER visit (notes available in Care Everywhere) where it was found that she is allergic to Valsartan; would like to know what is safe for her to take and if anything would interfere with digoxin Rx Physician: Alea Harley MD Patient was informed that non-urgent calls may be returned within the next three business days. Yes Junito Mendes documented in this encounterSt. [facility] History of Present illness Narrative* Farrukh Mcmahan MA - 09/18/2023 6:00 PM EST Images from the original note were not included. Patient: Asya Asencio : 1950 PCP: Peggy Nazario MD Asya Asencio is a 73 y.o. female presenting today for follow-up after being discharged from the hospital 1 days ago. The main problem requiring admission was dizziness and shaky. The discharge summaryand/or Transitional Care Management documentation was reviewed. Medication reconciliation was performed as indicated via the Cyrus as Reviewed timestamp. Asya Asencio was contacted by Transitional Care Management services two days after her discharge. This encounter and supporting documentation was reviewed. The complexity of medical decision making for this patient's transitional care is moderate . Review of Systems Family History Problem Relation Name Age of Onset Diabetes Mother Heart disease Mother Heart disease Father Flowsheet Row Patient Outreach from 09/18/2023 in [facility] [employer] with Loida Nathan LPN Discharge Information ED or Hospital Discharge? ED Patient has been contacted within 1 week of being seen in the ED Yes Discharge Date 09/17/23 Discharge Hospital [facility] [DX: ACid reflux, Medication reaction] Discharged To: Home Setting Engagement Call Start Time 09 Medications Discharge medications reviewed and reconciled from hospital? Yes Is the patient having any side effects they believe may be caused by any medication additions or changes? No Does the patient have all medications ordered at discharge? Yes Nursing Interventions Nurse provided patient education Prescription Comments Hold Valsartan and FU with PCP Is the patient taking all medications as directed (includes completed medication regime)? Yes Nursing Interventions Nurse provided patient education Appointments Does the patient have a primary care provider? Yes Nursing Interventions Verified appointment date/time/provider [09/18/23 6:00 pm] Has the patient kept scheduled appointments due by today? Yes Nursing Interventions Advised patient to keep appointment Self Management Patient Teaching Does the patient have access to their discharge instructions? Yes Nursing Interventions Reviewed instructions with patient What is the patient's perception of their health status since discharge? Returned to baseline/stable Wrap Up Wrap Up Additional Comments Labs, EKG, CXR unremarkable Call End Time 1006 No follow-ups on file. * Lia Shields - 09/18/2023 6:00 PM EST Asya Asencio is a 73 y.o. female presents today for ER follow up. HPI: Pt here today for ER follow up. Pt seen at [facility] on 09/17/23 due to dizziness and shaking. Hospitalrecords were reviewed. Pt had an elevated BP. She believes the dizziness and shaking was caused by the valsartan. She had the same issues when she was on it before, was advised to cut it in half. Shestates she has been feeling better since she stopped it. Pt would like a referral to a new shirt cleaner/surgeon. She states she has been told that medication can be used to cure her leaky valve but she would like to discuss this with a surgeon. She denies any SOB. Reviewed cardiology notes and attempted to review with pt. She again requests referral to cardiothoracic surgeon so referral has been placed. SUBJECTIVE: MEDICATIONS: Current Outpatient Medications Medication Instructions carvedilol (COREG) 12.5 mg, Oral, 2 times daily with meals digoxin (LANOXIN) 62.5 mcg, Oral, Daily, Take 1/2 a tab daily Eliquis 5 mg, Oral, 2 times daily Lipitor 40 mg, Oral, Daily LORazepam (ATIVAN) 1 mg, Oral, Every 6 hours omeprazole (PRILOSEC) 40 mg, Oral, Daily before breakfast, Do not crush or chew. ondansetron ODT (ZOFRAN-ODT) 4 mg, Oral, Every 8 hours PRN spironolactone (ALDACTONE) 12.5 mg, Oral, Daily, Take 1/2 a tab daily ALLERGIES: Allergies Allergen Reactions Amoxicillin Diarrhea Aspirin Other Reaction(s): Other: See Comments Patient states causes Bruising. Cephalexin GI intolerance Eggs Or Egg-Derived Products Other Reaction(s): allergy Erythromycin Unknown Meperidine Other Reaction(s): AOF, Other: See Comments, Syncope Patient does not know if she is allergic but know she is not suppose to take it. Meperidine Hcl Unknown Morphine Other Reaction(s): Unknown cause Sulfa Antibiotics GI intolerance Wheat Bran Other Reaction(s): allergy Wheat Dextrin Other Reaction(s): allergy Latex Hives and Rash REVIEW OF SYMPTOMS: Review of Systems Constitutional: Negative for chills, fatigue and fever. HENT: Negative for congestion, ear pain, sinus pressure, sinus pain, sore throat and trouble swallowing. Eyes: Negative for pain and visual disturbance. Respiratory: Negative for cough, choking, chest tightness, shortness of breath and wheezing. Cardiovascular: Negative for chest pain and palpitations. Gastrointestinal: Negative. Genitourinary: Negative. Musculoskeletal: Negative. Skin: Negative. Neurological: Negative for dizziness, weakness, light-headedness and headaches. Psychiatric/Behavioral: Negative. Endocrine: Negative. OBJECTIVE: Visit Vitals BP 136/66 Pulse 75 Temp 98 F Ht 5' 5 Wt 116 lb 3.2 oz LMP (LMP Unknown) SpO2 99% BMI 19.34 kg/m OB Status Hysterectomy Smoking Status Former BSA 1.55 m Physical Exam Constitutional: Appearance: Normal appearance. HENT: Head: Normocephalic and atraumatic. Eyes: Extraocular Movements: Extraocular movements intact. Cardiovascular: Rate and Rhythm: Normal rate and regular rhythm. Pulmonary: Effort: Pulmonary effort is normal. Breath sounds: Normal breath sounds. Musculoskeletal: General: Normal range of motion. Cervical back: Normal range of motion. Skin: General: Skin is warm and dry. Neurological: General: No focal deficit present. Mental Status: She is alert. Psychiatric: Mood and Affect: Mood normal. Behavior: Behavior normal. ASSESSMENT AND PLAN: Assessment/Plan Diagnoses and all orders for this visit: Other cardiomyopathy (CMS/HCC) Continue to follow with cardiology. Anxiety Paroxysmal atrial fibrillation (CMS/HCC) Continue to follow with cardiology. Hospital discharge follow-up Hospital records reviewed with pt. Mitral valve insufficiency, unspecified etiology Cardiology notes reviewed with pt. She would like to be referred to a cardiothoracic surgeon at [facility]. Discussed some risks of surgery. - Ambulatory referral to Cardiothoracic Surgery; Future Entered by _El_, acting as scribe for _Aravind_. Signature _Heath MCMAHON_ Date _09/18/2023_. The documentation recorded by the scribe accurately reflects the service(s) I personally performed and the decisions I made. documented in this encounterAudrain Medical [id number] Evaluation + Plan note Extracted from: Title:ED Note Author:Parveen Ayers DO Date :09/17/23 Acid reflux (K21.9: Gastro-e sophageal reflux disease without esophagitis) Medication reaction (T50.905A: Adverse effect of unspecified drugs, medicaments and biological substances, initial encounter) Orders: Al hydroxide/Mg hydroxide/simethicone, 30 mL, Susp-Oral, Oral, Once, Stop date 09/17/23 5:14:00 EST, STAT, Start date 09/17/23 5:14:00 EST lidocaine topical, 200 mg, 10 mL, Soln-Oral, Oral, Once, Stop date 09/17/23 5:14:00 EST, STAT, Start date 09/17/23 5:14:00 EST Sodium Chloride 0.9% intravenous solution, 500 mL, Soln-IV, IV, Once, Stop date 09/17/23 5:14:00 EST, STAT, Start date 09/17/23 5:14:00 EST, 500 mL/hr, Infuse over 1, hour(s) Basic Metabolic Panel Capillary Glucose POC CBC w/ Auto Diff ECG 12 Lead Adult ED Cardiac Monitoring eGFR Oxygen Saturation Oxygen Therapy PT & PTT Saline Lock Insert Troponin 0 Hr. XR Chest Single View Future Appointments Appointment Date:01/24/2024 02:30:00 PM Scheduled Provider:Micheline BROOKS MD Location:[facility] Appointment Type:URO Office Visit Future Scheduled Tests Laboratory* Basic Metabolic Panel 07/12/23 * Digoxin Level 07/12/23 [facility]02-04-2024 Hospital Discharge instructions Patient Education 09/17/2023 06:16:25 Drug Allergy Drug Allergy A drug allergy happens when the body's disease-fighting system (immune system) reacts badly to a medicine. Drug allergies range from mild to severe. A drug allergy is not the same as a medicine side effect, which is a known possible reaction to the drug. A drug allergy is also different from medicine toxicity caused by an overdose of the drug. The time of an allergic reaction varies. Symptoms often appear between 1 to 2 hours after taking the medicine; however, some allergic reactions occur 1 week or more after you are exposed to a medicine (delayed reaction). A sudden (acute), severe allergic reaction that affects multiple areas of the body is called an anaphylactic reaction (anaphylaxis). Anaphylaxis can be life- threatening. All allergic reactions to a medicine require medical evaluation, even if the allergic reaction appears to bemild. What are the causes? This condition is caused by the immune system wrongly identifying a medication as being harmful. When this happens, the body releases proteins (antibodies) and other compounds, such as histamine, into the bloodstream. This causes swelling in certain tissues and reduces blood flow to important areas, such as the heart and lungs. Almost any medicine can cause an allergic reaction. Medicines that commonly cause allergic reactions (common allergens) include: Antibiotics, such as penicillin. Sulfa medicines (sulfonamides). Medicines that numb certain areas of the body (local anesthetics). X-ray dyes that contain iodine. Pain-relievers. This includes aspirin and NSAIDs, such as ibuprofen or naproxen sodium. Chemotherapy drugs for treating cancer. Medicines for autoimmune diseases, such as rheumatoid arthritis. What are the signs or symptoms? Common symptoms of a mild allergic reaction include: Nasal congestion. Tingling in the mouth or tongue. An itchy, red rash. Common symptoms of a severe allergic reaction include: Swelling of the face, eyes, lips, or tongue, including the back of the mouth and throat. Difficulty speaking (hoarseness) or swallowing, or making high-pitched whistling sounds, most oftenwhen you breathe out (wheezing). Itchy, red, swollen areas of skin (hives). Dizziness, light-headedness, or fainting. Anxiety or confusion. Chest tightness and fast or irregular heartbeats (palpitations). Abdominal pain, vomiting, or diarrhea. How is this diagnosed? This condition is diagnosed based on a physical exam and your history of recent exposure to one or more medicines. You may be referred for follow-up testing by a health care provider who specializes in allergies. This testing can confirm the diagnosis of a drug allergy and determine which medicinesyou are allergic to. Testing may include: Skin tests. These may involve: ?Injecting a small amount of the possible allergen between layers of your skin (intradermal injection). ?Applying patches to your skin. Blood tests. Drug challenge. For this test, a health care provider gives you a small amount of a medicine in gradual doses while watching for an allergic reaction. If you are unsure of what caused your allergic reaction, your health care provider may ask you for: Information about all medicines that you take on a regular basis. The date and time of your reaction. How is this treated? There is no cure for allergies. However, an allergic reaction can be treated with: Medicines that help: ?Reduce pain and swelling (NSAIDs). ?Relieve itching and hives (antihistamines). ?Reduce swelling (corticosteroids). Respiratory inhalers. These are inhaled medicines that help open (dilate) the airways in your lungs. Injections of medicine that helps to relax the muscles in your airways and tighten your blood vessels (epinephrine). Severe allergic reactions, such as anaphylaxis, require immediate treatment in a hospital. You may need to be hospitalized for observation. You may also be prescribed rescue medicines, such as epinephrine. Epinephrine comes in many forms, including what is commonly called an auto-injector pen (pre-filled automatic epinephrine injection device). Follow these instructions at home: If you have a severe allergy Always keep an auto-injector pen or your anaphylaxis kit near you. This can be lifesaving if you have a severe reaction. Use your auto-injector pen or anaphylaxis kit as told by your health care provider. Make sure that you, the members of your household, and your employer know: ?How to use your auto-injector pen or anaphylaxis kit. ?How to use your auto-injector pen to give you an epinephrine injection. Replace your auto-injector pen or anaphylaxis kit immediately after use, in case you have another reaction. Wear a medical alert bracelet or necklace that states your drug allergy, if told by your health care provider. General instructions Avoid medicines that you are allergic to. Take fyxv-svp-wxhhqdd and prescription medicines only as told by your health care provider. If you were given medicines to treat your allergic reaction, do not drive until your health care provider tells you it is safe. If you have hives or a rash: ?Use an iutu-khk-iaqfyaz antihistamine as told by your health care provider. ?Apply cold, wet cloths (cold compresses) to your skin or take baths or showers in cool water. Avoid hot water. If you had tests done, it is up to you to get your test results. Ask your health care provider whenyour results will be ready. Tell all your health care providers that you have a drug allergy. Keep all follow-up visits This is important. Contact a health care provider if: You think that you are having a mild allergic reaction. Symptoms of an allergic reaction usually start within 1 hour after you are exposed to a medicine. You have symptoms that last more than 2 days after your reaction. You develop new signs or symptoms. Get help right away if: You needed to use epinephrine. ?An epinephrine injection helps to manage life-threatening allergic reactions, but you still need to go to the emergency room even if epinephrine seems to work. This is important because anaphylaxis may happen again within 72 hours (rebound anaphylaxis). ?If you used epinephrine to treat anaphylaxis outside of the hospital, you need additional medical care. This may include more doses of epinephrine. You develop signs or symptoms of a severe allergic reaction. These symptoms may represent a serious problem that is an emergency. Do not wait to see if the symptoms will go away. Use your auto-injector pen or anaphylaxis kit as you have been instructed, and get medical help right away. Call your local emergency services (911 in the [place] Do not drive yourself to the hospital. Summary A drug allergy happens when the body's disease-fighting system reacts badly to a medicine. Drug allergies range from mild to severe. In some cases, an allergic reaction may be life-threatening. If you have a severe allergy, always keep an auto-injector pen or your anaphylaxis kit near you. This information is not intended to replace advice given to you by your health care provider. Make sure you discuss any questions you have with your health care provider. Document Revised: 01/10/2022 Document Reviewed: 01/10/2022 [employer] Patient Education 2022 [employer]. 09/17/2023 06:16:25 Heartburn Heartburn Heartburn is a type of pain or discomfort that can happen in the throat or chest. It is often described as a burning pain. It may also cause a bad, acid- like taste in the mouth. Heartburn may feel worse when you lie down or bend over, and it is often worse at night. Heartburn may be caused by stomach contents that move back up into the esophagus (reflux). Follow these instructions at home: Eating and drinking Avoid certain foods and drinks as told by your health care provider. This may include: ?Coffee and tea, with or without caffeine. ?Drinks that contain alcohol. ?Energy drinks and sports drinks. ?Carbonated drinks or sodas. ?Chocolate and cocoa. ?Peppermint and mint flavorings. ?Garlic and onions. ?Horseradish. ?Spicy and acidic foods, including peppers, chili powder, mae powder, vinegar, hot sauces, and barbecue sauce. ?[place] fruit juices and citrus fruits, such as oranges, ronald, and limes. ?Tomato-based foods, such as red sauce, chili, salsa, and pizza with red sauce. ?Fried and fatty foods, such as donuts, south korean fries, potato chips, and high-fat dressings. ?High-fat meats, such as hot dogs and fatty cuts of red and white meats, such as rib eye steak, sausage, ham, and ambriz. ?High-fat dairy items, such as whole milk, butter, and cream cheese. Eat small, frequent meals instead of large meals. Avoid drinking large amounts of liquid with your meals. Avoid eating meals during the 2 3 hours before bedtime. Avoid lying down right after you eat. Do not exercise right after you eat. Lifestyle If you are overweight, reduce your weight to an amount that is healthy for you. Ask your health care provider for guidance about a safe weight loss goal. Do not use any products that contain nicotine or tobacco. These products include cigarettes, chewing tobacco, and vaping devices, such as e-cigarettes. These can make symptoms worse. If you need helpquitting, ask your health care provider. Wear loose-fitting clothing. Do not wear anything tight around your waist that causes pressure on your abdomen. Raise (elevate) the head of your bed about 6 inches (15 cm) when you sleep. You can use a wedge to do this. Try to reduce your stress, such as with yoga or meditation. If you need help reducing stress, ask your health care provider. Medicines Take uzfg-paa-sdesdvv and prescription medicines only as told by your health care provider. Do not take aspirin or NSAIDs, such as ibuprofen, unless your health care provider told you to do so. Stop medicines only as told by your health care provider. If you stop taking some medicines too quickly, your symptoms may get worse. General instructions Pay attention to any changes in your symptoms. Keep all follow-up visits. This is important. Contact a health care provider if: You have new symptoms. You have unexplained weight loss. You have difficulty swallowing, or it hurts to swallow. You have wheezing or a persistent cough. Your symptoms do not improve with treatment. You have frequent heartburn for more than 2 weeks. Get help right away if: You suddenly have pain in your arms, neck, jaw, teeth, or back. You suddenly feel sweaty, dizzy, or light-headed. You have chest pain or shortness of breath. You vomit and your vomit looks like blood or coffee grounds. Your stool is bloody or black. These symptoms may represent a serious problem that is an emergency. Do not wait to see if the symptoms will go away. Get medical help right away. Call your local emergency services (911 in the [place] Do not drive yourself to the hospital. Summary Heartburn is a type of pain or discomfort that can happen in the throat or chest. It is often described as a burning pain. It may also cause a bad, acid- like taste in the mouth. Avoid certain foods and drinks as told by your health care provider. Take rdqn-smj-wewealx and prescription medicines only as told by your health care provider. Do not take aspirin or NSAIDs, such as ibuprofen, unless your health care provider told you to do so. Contact a health care provider if your symptoms do not improve or they get worse. This information is not intended to replace advice given to you by your health care provider. Make sure you discuss any questions you have with your health care provider. Document Revised: 02/03/2021 Document Reviewed: 02/03/2021 [employer] Patient Education 2022 [employer]. Follow Up Care 09/17/2023 04:56:21 With:Peggy Nazario Address: [address] [place] [address]- Business (1) When:Within 3 Day(s) [facility]02-04-2024 Miscellaneous Notes* Telephone Encounter - Carmina Mcmahan APRN.CNP - 09/17/2023 6:25 AM EST Patient reported that she went to the ED, said her blood pressure was up instead of down this time . I didn't sleep, I can't take that medicine, there's something that don't agree with me. She reiterates that she can't take that medication (valsartan) again. Carmina Mcmahan APRN.CNP [facility] [employer] 09/17/2023 6:29 AM [facility] Miscellaneous Notes* Telephone Encounter - Carmina Mcmahan APRN.CNP - 09/17/2023 4:21 AM EST [facility] Contact Center Inbound Phone Encounter DATE of SERVICE: 09/17/2023 TIME of SERVICE: 4:21 AM Status: Urgent Service/Provider: Clinical Cardiology Alea Harley MD Reason for call: Medication Issue/Question Contact information: [phone] Resolution: Reinforced education and Sent to [employer] Comments: Patient calling after waking up with shakes and trembles and now her stomach has acid coming up and is on fire . I took the half pill, but I can't take this medicine anymore, I can't live like this, I can't eat, I can't sleep, I can't exist . She feels her blood pressure is too low,but denies dizziness, SOB, or chest pain. Patient repeated all the above several times. She does not have any heartburn medication at home, and said she might have to go to the ER for something for my stomach . Patient will not continue to take the valsartan. She would like to know if there is another medication to try. Carmina Mcmahan APRN.TALIB [employer] Date of Resolution: 09/17/2023 Time of Resolution 4:21 AM documented in [facility]St[facility] Telephone encounter Note * Telephone Encounter - Rupal Lemus - 09/15/2023 1:24 PM EST Pt calls to check status of this, wants this done as quickly as possible, states that she will haveto cut pills in half to make it through the weekend and missed one last night. [facility] [id number] Miscellaneous Notes* Telephone Encounter - Rupal Lemus - 09/15/2023 1:24 PM EST Pt calls to check status of this, wants this done as quickly as possible, states that she will haveto cut pills in half to make it through the weekend and missed one last night. * Telephone Encounter - Candis Amaro - 09/15/2023 9:49 AM EST Pt calls to [facility] * Telephone Encounter - Candis Amaro - 09/13/2023 11:25 AM EST Pt said she would like it sent to [facility] * Telephone Encounter - Farrukh Mcmahan MA - 09/13/2023 11:06 AM EST Rx signed yesterday * Telephone Encounter - Candiscatrachita Amaro - 09/13/2023 11:01 AM EST Pt calls for refill of lorazepam is almost out will be out completely on monday documented in [facility] encounterAud[facility] [id number] Telephone encounter Note* Telephone Encounter - [facility] - 09/15/2023 9:49 AM EST Pt calls to ask [id number] Telephone encounter Note* Telephone Encounter - [facility] - 09/13/2023 11:25 AM EST Pt said she would [id number] Telephone encounter Note* Telephone Encounter - Farrukh Mcmahan MA - 09/13/2023 11:06 AM EST Rx signed yesterday [id number] Telephone encounter Note* Telephone Encounter - Candis Amaro - 09/13/2023 11:01 AM EST Pt calls for refill of lorazepam is almost out will be out completely on monday [place] [id number] Evaluation + Plan noteExtracted from: Title:ED Note Author:Parveen Ayers DO Date :09/12/23 Acid reflux (K21.9: Gastro-e sophageal reflux disease without esophagitis) Tremor (R25.1: Tremor, unspecified) Orders: Al hydroxide/Mg hydroxide/simethicone, 30 mL, Susp-Oral, Oral, Once, Stop date 09/12/23 4:25:00 EST, STAT, Start date 09/12/23 4:25:00 EST lidocaine topical, 200 mg, 10 mL, Soln-Oral, Oral, Once, Stop date 09/12/23 4:25:00 EST, STAT, Start date 09/12/23 4:25:00 EST Basic Metabolic Panel Capillary Glucose POC CBC w/ Auto Diff CT Head or Brain w/o Contrast Drug Screen Urine ECG 12 Lead Adult eGFR Extra Blue Tube Extra SST Tube Saline Lock Insert Troponin 0 Hr. UA With Cult Reflex XR Chest Single View Future Appointments Appointment Date:01/24/2024 02:30:00 PM Scheduled Provider:Micheline BROOKS MD Location:[facility] Appointment Type:URO Office Visit Future Scheduled Tests Laboratory* Basic Metabolic Panel 07/12/23 * Digoxin Level 07/12/23 [facility]01-30-2024 Hospital Discharge instructions Patient Education 09/12/2023 06:47:40 Tremor Tremor A tremor is trembling or shaking that you cannot control. Most tremors affect the hands or arms. Tremors can also affect the head, vocal cords, face, and other parts of the body. There are many typesof tremors. Common types include: Essential tremor. These usually occur in people older than 40. This type of tremor may run in families and can happen in otherwise healthy people. Resting tremor. These occur when the muscles are at rest, such as when your hands are resting in your lap. People with Parkinson's disease often have resting tremors. Postural tremor. These occur when you try to hold a pose, such as keeping your hands outstretched. Kinetic tremor. These occur during purposeful movement, such as trying to touch a finger to your nose. Task-specific tremor. These may occur when you do certain tasks such as writing, speaking, or standing. Psychogenic tremor. These are greatly reduced or go away when you are distracted. These tremors happen due to underlying stress or psychiatric disease. They can happen in people of all ages. Some types of tremors have no known cause. Tremors can also be a symptom of nervous system problems(neurological disorders) that may occur with aging. Some tremors go away with treatment, while others do not. Follow these instructions at home: Lifestyle If you drink alcohol: ?Limit how much you have to: ? 0 1 drink a day for women who are not . ?0 2 drinks a day for men. ?Know how much alcohol is in a drink. In the [place] one drink equals one 12 oz bottle of beer (355 mL), one 5 oz glass of wine (148 mL), or one 1 oz glass of hard liquor (44 mL). Do not use any products that contain nicotine or tobacco. These products include cigarettes, chewing tobacco, and vaping devices, such as e-cigarettes. If you need help quitting, ask your health careprovider. Avoid extreme heat and extreme cold. Limit your caffeine intake, as told by your health care provider. Try to get 8 hours of sleep each night. Find ways to manage your stress, such as meditation or yoga. General instructions Take iwmn-kot-mmlithn and prescription medicines only as told by your health care provider. Keep all follow-up visits. This is important. Contact a health care provider if: You develop a tremor after starting a new medicine. You have a tremor along with other symptoms such as: ?Numbness. ?Tingling. ?Pain. ?Weakness. Your tremor gets worse. Your tremor interferes with your day-to-day life. Summary A tremor is trembling or shaking that you cannot control. Most tremors affect the hands or arms. Some types of tremors have no known cause. Others may be a symptom of nervous system problems (neurological disorders). Make sure you discuss any tremors you have with your health care provider. This information is not intended to replace advice given to you by your health care provider. Make sure you discuss any questions you have with your health care provider. Document Revised: 05/20/2022 Document Reviewed: 05/20/2022 [employer] Patient Education 2022 [employer] 09/12/2023 06:47:40 Gastroesophageal Reflux Disease, Adult Gastroesophageal Reflux Disease, Adult Gastroesophageal reflux (ZUNILDA) happens when acid from the stomach flows up into the tube that connects the mouth and the stomach (esophagus). Normally, food travels down the esophagus and stays in thestomach to be digested. However, when a person has ZUNILDA, food and stomach acid sometimes move back up into the esophagus. If this becomes a more serious problem, the person may be diagnosed with a disease called gastroesophageal reflux disease (GERD). GERD occurs when the reflux: Happens often. Causes frequent or severe symptoms. Causes problems such as damage to the esophagus. When stomach acid comes in contact with the esophagus, the acid may cause inflammation in the esophagus. Over time, GERD may create small holes (ulcers) in the lining of the esophagus. What are the causes? This condition is caused by a problem with the muscle between the esophagus and the stomach (lower esophageal sphincter, or LES). Normally, the LES muscle closes after food passes through the esophagus to the stomach. When the LES is weakened or abnormal, it does not close properly, and that allowsfood and stomach acid to go back up into the esophagus. The LES can be weakened by certain dietary substances, medicines, and medical conditions, including: Tobacco use. . Having a hiatal hernia. Alcohol use. Certain foods and beverages, such as coffee, chocolate, onions, and peppermint. What increases the risk? You are more likely to develop this condition if you: Have an increased body weight. Have a connective tissue disorder. Take NSAIDs, such as ibuprofen. What are the signs or symptoms? Symptoms of this condition include: Heartburn. Difficult or painful swallowing and the feeling of having a lump in the throat. A bitter taste in the mouth. Bad breath and having a large amount of saliva. Having an upset or bloated stomach and belching. Chest pain. Different conditions can cause chest pain. Make sure you see your health care provider if you experience chest pain. Shortness of breath or wheezing. Ongoing (chronic) cough or a nighttime cough. Wearing away of tooth enamel. Weight loss. How is this diagnosed? This condition may be diagnosed based on a medical history and a physical exam. To determine if youhave mild or severe GERD, your health care provider may also monitor how you respond to treatment. You may also have tests, including: A test to examine your stomach and esophagus with a small camera (endoscopy). A test that measures the acidity level in your esophagus. A test that measures how much pressure is on your esophagus. A barium swallow or modified barium swallow test to show the shape, size, and functioning of your esophagus. How is this treated? Treatment for this condition may vary depending on how severe your symptoms are. Your health care provider may recommend: Changes to your diet. Medicine. Surgery. The goal of treatment is to help relieve your symptoms and to prevent complications. Follow these instructions at home: Eating and drinking Follow a diet as recommended by your health care provider. This may involve avoiding foods and drinks such as: ?Coffee and tea, with or without caffeine. ?Drinks that contain alcohol. ?Energy drinks and sports drinks. ?Carbonated drinks or sodas. ?Chocolate and cocoa. ?Peppermint and mint flavorings. ?Garlic and onions. ?Horseradish. ?Spicy and acidic foods, including peppers, chili powder, mae powder, vinegar, hot sauces, and barbecue sauce. ?[place] fruit juices and citrus fruits, such as oranges, ronald, and limes. ?Tomato-based foods, such as red sauce, chili, salsa, and pizza with red sauce. ?Fried and fatty foods, such as donuts, south korean fries, potato chips, and high-fat dressings. ?High-fat meats, such as hot dogs and fatty cuts of red and white meats, such as rib eye steak, sausage, ham, and ambriz. ?High-fat dairy items, such as whole milk, butter, and cream cheese. Eat small, frequent meals instead of large meals. Avoid drinking large amounts of liquid with your meals. Avoid eating meals during the 2 3 hours before bedtime. Avoid lying down right after you eat. Do not exercise right after you eat. Lifestyle Do not use any products that contain nicotine or tobacco. These products include cigarettes, chewing tobacco, and vaping devices, such as e-cigarettes. If you need help quitting, ask your health careprovider. Try to reduce your stress by using methods such as yoga or meditation. If you need help reducing stress, ask your health care provider. If you are overweight, reduce your weight to an amount that is healthy for you. Ask your health care provider for guidance about a safe weight loss goal. General instructions Pay attention to any changes in your symptoms. Take zfuj-anc-fgiwslz and prescription medicines only as told by your health care provider. Do not take aspirin, ibuprofen, or other NSAIDs unless your health care provider told you to take these medicines. Wear loose-fitting clothing. Do not wear anything tight around your waist that causes pressure on your abdomen. Raise (elevate) the head of your bed about 6 inches (15 cm). You can use a wedge to do this. Avoid bending over if this makes your symptoms worse. Keep all follow-up visits. This is important. Contact a health care provider if: You have: ?New symptoms. ?Unexplained weight loss. ?Difficulty swallowing or it hurts to swallow. ?Wheezing or a persistent cough. ?A hoarse voice. Your symptoms do not improve with treatment. Get help right away if: You have sudden pain in your arms, neck, jaw, teeth, or back. You suddenly feel sweaty, dizzy, or light-headed. You have chest pain or shortness of breath. You vomit and the vomit is green, yellow, or black, or it looks like blood or coffee grounds. You faint. You have stool that is red, bloody, or black. You cannot swallow, drink, or eat. These symptoms may represent a serious problem that is an emergency. Do not wait to see if the symptoms will go away. Get medical help right away. Call your local emergency services (911 in the [place] Do not drive yourself to the hospital. Summary Gastroesophageal reflux happens when acid from the stomach flows up into the esophagus. GERD is a disease in which the reflux happens often, causes frequent or severe symptoms, or causes problems such as damage to the esophagus. Treatment for this condition may vary depending on how severe your symptoms are. Your health care provider may recommend diet and lifestyle changes, medicine, or surgery. Contact a health care provider if you have new or worsening symptoms. Take udzl-dfn-lqjewlr and prescription medicines only as told by your health care provider. Do not take aspirin, ibuprofen, or other NSAIDs unless your health care provider told you to do so. Keep all follow-up visits as told by your health care provider. This is important. This information is not intended to replace advice given to you by your health care provider. Make sure you discuss any questions you have with your health care provider. Document Revised: 02/08/2021 Document Reviewed: 02/08/2021 [employer] Patient Education 2022 [employer] Follow Up Care 09/12/2023 04:04:55 With:Peggy Nazario Address: [address] [place] [phone]- Business (1) When:Within 3 Day(s) [facility]01-18-2024 NoteHNO ID: [id number] Author: FELISA RIBERA RPh Service: Pharmacy Author Type: Pharmacist Type: Plan of Care Filed: 08/31/2023 15:25 Note Text: HEART FAILURE DISCHARGE MEDICATION REVIEW BY PHARMACY Patient Name: Asya Asencio Account #: Data Unavailable Admission Date: 08/24/2023 Date of Contact: August 31, 2023 Time of Contact: 2:01 PM Medication list was reviewed by a Pharmacist for drug interactions or drug related problems:Yes Below is a summary of pharmacist recommendations discussed with LIP: No Recommendations at this time from Discharge Medication List. Medication reconciliation completed: Off rounds Other comments: Sam check performed this admission: Jardiance 10 mg tablets - $540.46 with deductible Farxiga 10 mg tablets - $514.94 with deductible Entresto 24/26 mg tablets - $558.96 with deductible Eliquis 5 mg tablets - $515.62 with deductible and Guideline Directed Medical Therapy Most recent GDMT score: 6 Inpatient GDMT score: 6 ACEi/ARB/ARNI YES - valsartan Beta Yolette YES - carvedilol Aldosterone antagonist YES - spironolactone SGLT2i NO Cost prohibitive at this time due to deductible Felisa Ribera RPh August 31, 2023 2:01 PM Pager: [phone] Medication List START taking these medications polyethylene glycol 3350 17 gram/dose powder Take 17 g by mouth once daily as needed. Dissolve dose in 4 - 8 ounces of liquid and take as directed. spironolactone 25 mg tablet Commonly known as: ALDACTONE Take 0.5 tablets by mouth once daily. valsartan 80 mg tablet Commonly known as: DIOVAN Take 1 tablet by mouth once daily. CHANGE how you take these medications atorvastatin 40 mg tablet Commonly known as: LIPITOR Take 1 tablet by mouth daily at bedtime. What changed: when to take this carvedilol 12.5 mg tablet Commonly known as: COREG Take 1 tablet by mouth two times a day with meals. What changed: medication strength how much to take digoxin 125 mcg (0.125 mg) tablet Commonly known as: LANOXIN Take 0.5 tablets by mouth once daily. Patient should start on September 01, 2023. Start taking on: September 01, 2023 What changed: how much to take CONTINUE taking these medications apixaban 5 mg tab(s) Commonly known as: ELIQUIS Take 1 tablet by mouth two times a day. LORazepam 1 mg tablet Commonly known as: ATIVAN STOP taking these medications aspirin, enteric coated 81 mg EC tablet Commonly known as: ASPIRIN, ENTERIC COATED furosemide 40 mg tablet Commonly known as: LASIX losartan 25 mg tablet Commonly known as: COZAAR ondansetron orally disintegrating 4 mg disintegrating tablet Commonly known as: ZOFRAN ODT Where to Get Your Medications These medications were sent to [facility] [address] [place] [address] Hours: Monday-Monday 7am-8pm, Monday, Monday and Holidays 9am-5pm apixaban 5 mg tab(s) atorvastatin 40 mg tablet carvedilol 12.5 mg tablet digoxin 125 mcg (0.125 mg) tablet polyethylene glycol 3350 17 gram/dose powder spironolactone 25 mg tablet [facility]artan [facility] NoteHNO ID: [id number] Author: MILAGRO RINALDI, Delia Service: Pharmacy Author Type: Artist Mannequin Coloring Type: Plan of Care Filed: 08/31/2023 15:48 Note Text: PHARMACY BEDSIDE DELIVERY SERVICE Patient Name: Asya Asencio The marked outpatient medications were Filled at: [facility] and delivered to the patient's bedside to patient Delivered pill splitter Medication List START taking these medications polyethylene glycol 3350 17 gram/dose powder Take 17 g by mouth once daily as needed. Dissolve dose in 4 - 8 ounces of liquid and take as directed. Patient refused, stated she wanted to buy OTC senna. Sold OTC Senna to patient spironolactone 25 mg tablet Commonly known as: ALDACTONE Take 0.5 tablets by mouth once daily. Delivered valsartan 80 mg tablet Commonly known as: DIOVAN Take 1 tablet by mouth once daily. Delivered CHANGE how you take these medications atorvastatin 40 mg tablet Commonly known as: LIPITOR Take 1 tablet by mouth daily at bedtime. What changed: when to take this Delivered carvedilol 12.5 mg tablet Commonly known as: COREG Take 1 tablet by mouth two times a day with meals. What changed: medication strength how much to take Delivered digoxin 125 mcg (0.125 mg) tablet Commonly known as: LANOXIN Take 0.5 tablets by mouth once daily. Patient should start on September 01, 2023. Start taking on: September 01, 2023 What changed: how much to take Delivered CONTINUE taking these medications apixaban 5 mg tab(s) Commonly known as: ELIQUIS Take 1 tablet by mouth two times a day. Delivered - patient was given patient assistance program information to fill out. She stated her son will help her fill it out. LORazepam 1 mg tablet Commonly known as: ATIVAN You might also be taking other medications not listed above. If you have questions about any of your other medications, talk to the person who prescribed them or your Primary Care Provider. STOP taking these medications aspirin, enteric coated 81 mg EC tablet Commonly known as: ASPIRIN, ENTERIC COATED furosemide 40 mg tablet Commonly known as: LASIX losartan 25 mg tablet Commonly known as: COZAAR ondansetron orally disintegrating 4 mg disintegrating tablet Commonly known as: ZOFRAN OMART Milagro Rinaldi PAGER: [phone] August 31, 2023 1:42 [facility]01-18-2024 NoteHNO ID: [id number] Author: MILAGRO RINALDI ? Service: Pharmacy Author Type: Artist Mannequin Coloring Type: Plan of Care Filed: 08/31/2023 11:37 Note Text: Reason for test claim: HVTI Eliquis Medication: Eliquis 5 mg tablets Qty: 60 tablets Day supply: 30 days Cost on insurance: $515.62 Deductible: patient has a $545 deductible Requires prior authorization: No Copay card/voucher available: Yes, voucher (to be used once per lifetime) Cost of medication on copay card/voucher: $0.00 for 30 day supply Total number of sam checks: 1 Any questions, [place] [phone]. Thank you (Prices may vary at different pharmacy locations, this is the cost at [facility]01-17-2024 NoteHNO ID: [id number] Author: VIRY MIDDLETON MD Service: Cardiovascular Medicine Author Type: Physician Type: Progress Notes Filed: 08/30/2023 10:22 Note Text: [facility] CARDIOVASCULAR MEDICINE PROGRESS NOTE NAME: Asya Asencio SERVICE DATE: 08/30/2023 Interval History and Plan for the Day: No acute events overnight. Patient feeling better today, but feels irritation from the robles. HDS: Afebrile, HDS, SpO2 > 92% on RA Intake/Output Summary (Last 24 hours) at 08/30/2023 0752 Last data filed at 08/30/2023 0605 Gross per 24 hour Intake -- Output 2525 ml Net -2525 ml 08/28: KRYSTINA+ Cardioversion, well tolerated CT flank 08/29/23: No urinary tract calculi. No acute findings in the abdomen or pelvis. Increased size of RIGHT adnexal/ovarian cystic lesion, which at discretion this could be further characterized with ultrasound. 24 hour plan: - Remove robles today and see if patient voids - US pelvis - TSH 9.85, ft4 1.1 --> f/up TPOAb Medications Current Facility-Administered Medications Medication Dose Route Frequency LORazepam 1 mg tab(s) (ATIVAN) 1 mg ORAL q 6 H PRN atorvastatin 40 mg tab(s) (LIPITOR) 40 mg ORAL AT BEDTIME acetaminophen 650 mg tab(s) (TYLENOL) 650 mg ORAL q 4 H PRN NaCl 0.9% iv flush bag 20 mL INTRAVENOUS PRN polyethylene glycol 3350 17 g packet 17 g ORAL DAILY PRN apixaban 5 mg tab(s) (ELIQUIS) 5 mg ORAL BID melatonin 6 mg tab(s) 6 mg ORAL/FEEDING TUBE DAILY (8 PM) senna 8.6 mg tab(s) (SENOKOT) 8.6 mg ORAL/FEEDING TUBE BID potassium chloride ER 10-60 mEq tab(s) (KLOR-CON M10) 10-60 mEq ORAL PRN spironolactone 25 mg tab(s) (ALDACTONE) 25 mg ORAL DAILY carvedilol 12.5 mg tab(s) (COREG) 12.5 mg ORAL BID w MEALS valsartan 80 mg tab(s) (DIOVAN) 80 mg ORAL DAILY ciprofloxacin HCl 500 mg tab(s) (CIPRO) 500 mg ORAL q 12 H 6a/6p digoxin 0.0625 mg tab(s) (LANOXIN) 0.0625 mg ORAL DAILY Allergies Cephalexin, Demoral [Meperidine], Egg, Latex, Morphine, and Sulfa (Sulfonamide Antibiotics) Physical Exam BP 118/59 Pulse (!) 55 Temp 36.5 ?C (97.7 ?F) (Oral) Resp 18 Ht 165.1 cm (5' 5 ) Wt 52.1 kg (114 lb 13.8 oz) SpO2 95% BMI 19.11 kg/m? General Appearance: Well developed HEENT: EOM's intact Lungs: Clear Heart: Regular rate AND rhythm Abdomen: Soft and Non-distended Skin: Warm and Dry Musculoskeletal: No deformities Neurologic/Psychiatric: Oriented to time, place AND person Lines, Drains, and Airways Line Duration Peripheral 08/24/23 190 Left Forearm 20 Gauge 5 days Drain Duration Indwelling Urinary Catheter 08/28/23 191 [facility] Robles 14 Fr 1 day Intake / Output Intake/Output Summary (Last 24 hours) at 08/30/2023 0750 Last data filed at 08/30/2023 0605 Gross per 24 hour Intake -- Output 2525 ml Net -2525 ml Work Up Imaging: KRYSTINA 08/28/22: LV dilated. Left ventricular systolic function is moderately decreased. EF = 40 ? 5% (visual est.). RV normal in size. Right ventricular systolic function is mildly decreased. LA cavity is dilated. No HA thrombus. Peak emptying velocity varies from 15- 31.0 cm/s. RA cavity is dilated. Moderately severe (3+) holosystolic mitral valve regurgitation. Regurgitant orifice area (PISA) is 0.32 cm?. Mild anterior leaflet override. Two regurgitant jets, one originating from the medial aspect of the coaptation line, the other just lateral of center. May be atrial functional MR. Moderately severe (3+) tricuspid valve regurgitation. Suspect atrial functional TR. Predominant jet between septal and posterior leaflets. CT flank 08/29/23: No urinary tract calculi. No acute findings in the abdomen or pelvis. Increased size of RIGHT adnexal/ovarian cystic lesion, which at discretion this could be further characterized with ultrasound. Labs: CBC: Recent Labs 08/29/23 0903 08/28/23 0521 08/27/23 0839 08/26/23 0702 08/25/23 0636 01/11211208/23/23 1144 WBC 8.00 6.22 5.61 7.27 6.38 7.40 6.24 HB 13.1 12.3 12.7 12.8 12.8 13.2 14.4 HCT 39.4 37.8 38.9 38.5 37.8 40.4 43.4 PLT 192 180 143* 168 173 201 215 MCV 90.4 90.6 90.0 90.4 88.3 89.8 91.4 RDWCV 13.1 13.1 12.8 13.1 12.9 12.7 12.9 NEUTP -- -- -- -- -- 65.1 -- ABSNEUT -- -- -- -- -- 4.82 -- LYMPHP -- -- -- -- -- 23.4 -- MONOP -- -- -- -- -- 10.4 -- COAG: No results for input(s): APTT , INR in the last 168 hours. BMP: Recent Labs 08/29/23 0908/28/23 0521 08/27/23 0839 08/26/23 0702 08/25/23 1330 08/25/23 0636 08/24/23211208/23/23 1144 08/23/23 0813 GLUC 85 88 92 93 -- 84 123* 127* -- NA 136 140 140 140 -- 136 137 139 -- K 4.7 4.6 4.7 4.4 4.3 3.4* 3.7 4.1 -- CHLOR 101 106* 105 104 -- 97 97 98 -- CO2 25 24 27 26 -- 29 32* 32* -- ANION 10 10 8* 10 -- 10 8* 9 -- BUN 15 13 15 19 -- 22* 21 17 -- CREAT 0.87 0.75 0.72 0.84 -- 1.02* 1.11* 0.98* 0.97* CHEM: Recent Labs 08/29/2390208/28/23 0521 08/27/23 0839 0 (more content not included)...[facility] Note HNO ID: [id number] Author: KHUSHBOO SANCHEZ, RT(R) Service: Radiology Author Type: Technologist Type: Progress Notes Filed: 08/29/2023 14:46 Note Text: Radiology Service Progress Note PATIENT NAME: Asya Asencio DATE OF SERVICE: August 29, 2023 TIME: 2:45 PM PATIENT IDENTITY VERIFICATION COMPLETED USING TWO (2) IDENTIFIERS: Name and Date of confirmed by patient verbally and Name and Date of confirmed by identification band. FALL SCREENING: Has the patient had 2 falls in the last year or 1 fall with injury or currently using an Ambulatory Assistive Device (Walker, Cane, Wheelchair, Crutches, etc.)? Inpatient: Screened on floor PATIENT GENDER DATA: Female. status: : No status: NO. PATIENT RELEVANT IMPLANT DATA REVIEWED: Yes RADIOLOGY DEPARTMENT: CT; Exam(s) Completed: Brain PERIPHERAL IV DATA: Not applicable SIGNED BY: RT Maisha(R) August 29, 2023 2:45 [facility]01-16-2024 NoteHNO ID: [id number] Author: STEPHANIE PALACIOS MD Service: Urology Author Type: Resident Type: Plan of Care Filed: 08/29/2023 08:09 Note Text: Plan of Care: 73 year old female with a history of NICM, HTN, Afib w RBR, MR, TR, HF, and urethral stricture s/p recent dilation 04/2023,. Urology is consulted regarding urethral pain, urethral stricture. Primary team was able to place 14 Fr robles catheter with out issues. Patient is on cipro for kelbs Ucx. Plan: -Robles catheter as per primary. -FPMRS appointment was requested. -Urology to sign off. Page with questions. Stephanie Palacios MD Resident PGY-2 Urology [facility] Pager [phone] After hours and on weekend sales representative education courses pager [phone]24 NoteHNO ID: [id number] Author: VIRY MIDDLETON MD Service: Cardiovascular Medicine Author Type: Physician Type: Progress Notes Filed: 08/29/2023 10:42 Note Text: [facility] CARDIOV[facility]ULAR MEDICINE PROGRESS NOTE NAME: Asya Asencio SERVICE DATE: 08/29/2023 Interval History and Plan for the Day: No acute events overnight. Robles catheter (14 south korean) was inserted yesterday because BS showed 305 then 250 cc. Patient feeling better today, but feels irritation from the robles. HDS: Afebrile, HDS, SpO2 > 92% on RA I/O: 850 L in / 925 UOP in 24h New Imaging: KRYSTINA 08/28/22: no thrombus 08/28: KRYSTINA+ Cardioversion, well tolerated 24 hour plan: - UC with >=100,000 CFU/ml Klebsiella oxytoca, I resistance to nitrofurantoin, and the patient has allergy to cephalexin and sulfa drugs, so will treat with ciprofloxacin > Urology: - robles 14 south korean - pyridium 200 mg TID for 6 doses for symptomatic management of urethral pain (ordered 08/26) - OP follow up requested by this team > Psychiatry: - no change in medication for now, OP f/up - TSH 9.85, ft4 1.1 --> f/up TPOAb Medications Current Facility-Administered Medications Medication Dose Route Frequency LORazepam 1 mg tab(s) (ATIVAN) 1 mg ORAL q 6 H PRN atorvastatin 40 mg tab(s) (LIPITOR) 40 mg ORAL AT BEDTIME digoxin 0.125 mg tab(s) (LANOXIN) 0.125 mg ORAL DAILY acetaminophen 650 mg tab(s) (TYLENOL) 650 mg ORAL q 4 H PRN NaCl 0.9% iv flush bag 20 mL INTRAVENOUS PRN polyethylene glycol 3350 17 g packet 17 g ORAL DAILY PRN apixaban 5 mg tab(s) (ELIQUIS) 5 mg ORAL BID melatonin 6 mg tab(s) 6 mg ORAL/FEEDING TUBE DAILY (8 PM) senna 8.6 mg tab(s) (SENOKOT) 8.6 mg ORAL/FEEDING TUBE BID potassium chloride ER 10-60 mEq tab(s) (KLOR-CON M10) 10-60 mEq ORAL PRN spironolactone 25 mg tab(s) (ALDACTONE) 25 mg ORAL DAILY carvedilol 12.5 mg tab(s) (COREG) 12.5 mg ORAL BID w MEALS valsartan 80 mg tab(s) (DIOVAN) 80 mg ORAL DAILY ciprofloxacin HCl 500 mg tab(s) (CIPRO) 500 mg ORAL q 12 H 6a/6p Allergies Cephalexin, Demoral [Meperidine], Latex, Morphine, and Sulfa (Sulfonamide Antibiotics) Physical Exam BP 119/58 Pulse 68 Temp 36.7 ?C (98.1 ?F) (Oral) Resp 18 Ht 165.1 cm (5' 5 ) Wt 52 kg (114 lb 10.2 oz) SpO2 97% BMI 19.08 kg/m? General Appearance: Well developed HEENT: EOM's intact Lungs: Clear Heart: Regular rate AND rhythm Abdomen: Soft and Non-distended Skin: Warm and Dry Musculoskeletal: No deformities Neurologic/Psychiatric: Oriented to time, place AND person Lines, Drains, and Airways Line Duration Peripheral 08/24/23 190 Left Forearm 20 Gauge 4 days Drain Duration Indwelling Urinary Catheter 08/28/23 1910 [facility] Robles 14 Fr <1 day Intake / Output Intake/Output Summary (Last 24 hours) at 08/29/2023 0803 Last data filed at 08/29/2023 0607 Gross per 24 hour Intake 50 ml Output 925 ml Net -875 ml Work Up Imaging: US KIDNEY/BLADDER Final Result IMPRESSION: NO HYDRONEPHROSIS. Yard Stocker: PSCRy Transcribe Date/Time: Aug 25 2023 10:35A Dictated by : NANCY YOUNGBLOOD MD This examination was interpreted and the report reviewed and electronically signed by: NANCY YOUNGBLOOD MD on Aug 25 2023 10:38AM EST Labs: CBC: Recent Labs 08/28/23 0521 08/27/23 0839 08/26/23 0702 08/25/23 0636 08/24/23 2113 08/23/23 1144 WBC 6.22 5.61 7.27 6.38 7.40 6.24 HB 12.3 12.7 12.8 12.8 13.2 14.4 HCT 37.8 38.9 38.5 37.8 40.4 43.4 PLT 180 143* 168 173 201 215 MCV 90.6 90.0 90.4 88.3 89.8 91.4 RDWCV 13.1 12.8 13.1 12.9 12.7 12.9 NEUTP -- -- -- -- 65.1 -- ABSNEUT -- -- -- -- 4.82 -- LYMPHP -- -- -- -- 23.4 -- MONOP -- -- -- -- 10.4 -- COAG: No results for input(s): APTT , INR in the last 168 hours. BMP: Recent Labs 08/28/23 0508/27/23 0839 08/26/23 0702 08/25/23 1330 08/25/23 0636 08/24/23211208/23/23 1144 08/23/23 0813 08/23/23 0732 GLUC 88 92 93 -- 84 123* 127* -- -- NA 140 140 140 -- 136 137 139 -- -- K 4.6 4.7 4.4 4.3 3.4* 3.7 4.1 -- -- CHLOR 106* 105 104 -- 97 97 98 -- -- CO2 24 27 26 -- 29 32* 32* -- -- ANION 10 8* 10 -- 10 8* 9 -- -- BUN 13 15 19 -- 22* 21 17 -- -- CREAT 0.75 0.72 0.84 -- 1.02* 1.11* 0.98* 0.97* 1.10 CHEM: Recent Labs 08/28/23 0508/27/23 0839 08/26/23 0702 08/25/2363508/24/23211208/23/23 1144 ALB 3.5* 3.6* 3.5* 3.4* 3.8* 4.4 TPROT 5.9* 5.8* 5.7* 5.7* 6.1* 6.8 CA 9.5 9.1 8.9 9.0 9.2 9.8 MG -- -- -- 2.2 -- -- HEPATIC: Recent Labs 08/28/23 0508/27/23 0839 08/26/23 0702 08/25/23 0608/24/23211208/23/23 1144 ALKPHOS 52 59 60 48 61 66 ALT 31 29 25 26 34 40* AST 26 27 22 23 27 31 TBILI 0.5 0.5 0.4 0.9 0.7 0.8 URINALYSIS: Recent Labs 08/24/232114 SPGR 1.021 UGLUC Negative UBILI Negative UKET Trace* UHB Trace* UPROT 1+* CARDIAC: Recent Labs 08/23/23 1144 PBNP 3,265* IMAGING: T (more content not included)...[facility]01-[facility]24 NoteHNO ID: [id number] Author: YADIEL MOTLEY MD Service: Cardiovascular Medicine Author Type: Fellow Type: Plan of Care Filed: 08/28/2023 18:27 Note Text: Discussed with the patient the details of the cardioversion procedure prior to sedation administration for the KRYSTINA exam. Ms. Asencio was informed about the indication, and was made aware of the risks associated with the procedure including post-cardioversion bradycardia and an increased risk of stroke in the post-cardioversion period. Ms. Asencio expressed understanding and is agreeable to proceed with the cardioversion. She understands that she will have to maintain anticoagulation for at least four weeks following episcopal of sinus rhythm. Yadiel Motley MD Cardiovascular Medicine Fellow Heart, Vascular and Thoracic [facility] 08/28/2023[facility]01-15-2024 NoteHNO ID: [id number] Author: FELISA RIBERA [facility]ly [facility] Service: Pharmacy Author Type: Pharmacist Type: Plan of Care Filed: 08/28/2023 13:36 Note Text: PHARMACY MEDICATION REVIEW Patient Name: Asya Asencio : 1950 The following medications were updated within the [employer] medication list: Medications ADDED to [employer] medication list Lorazepam 1mg tablets Take 1 tablet by mouth every 6 hours as needed for anxiety. Medications CHANGED on [employer] medication list Carvedilol 3.125mg tablets Added to directions: take twice daily with meals. Medications REMOVED from [employer] medication list Ativan 0.5mg and lorazepam 0.5mg tablets Patient increased to taking 1mg tablets. Estradiol 0.01% vaginal cream Patient does not recall ever using this medication. Loperamide 2mg capsules Patient does not recall ever taking this medication, especially since she usually faces constipation as opposed to diarrhea. Tamsulosin 0.4mg capsules Patient does not recall ever taking this medication. It was explained that it can help relieve the bladder, which is an issue she is currently facing, but it did not sound familiar to her. Additional comments: Patient is a somewhat fair historian. She needed assistance going through the names of most of her medications, and she was able to confirm what she could remember. Prompting with indications helped a bit as well. Patient is most likely adherent to taking her medications, but speculation was not 100% clear. Patient requested a prescription for a stool softener upon discharge, as she has been using those along with prune juice to keep her system clear since a procedure she had done in 1995. Per patient, she was able to defecate this morning but is currently have issues urinating to the point of it causing severe discomfort in her lower abdomen. The below information represents the best possible medication history: Yes Medication history completed by: Director Of Learning: Arminda Coleman Source of history: Patient: Reliability of source: Appears reliable, clearly identified: Medication name, Medication frequency, and Indications, Pharmacy records: [facility], and [facility] records Medication nonadherence identified: Unable to assess Reconciliation completed: Yes Completed by: Felisa Ribera [facility]ly [facility] All [employer] medications addressed by LIP Patient interested in Bedside Delivery Services or using CC OP Pharmacy at discharge? Yes. Discharge Pharmacy Updated Preferred outpatient pharmacy: [id number] [place] [address] - [address] [facility] [phone] [address] [facility] ( [address] [place] [address] - [address] - [phone] [id number] [facility]/pharmacy #[id number] [place] [address] - [address] - [phone] Pharmacy Discharge pharmacy: [facility] Patient not interested in [facility]'s home delivery service at this time. Allergies: Cephalexin Unknown Demoral [Meperidine] Other: See Comments Comment:Patient does not know if she is allergic but know she is not suppose to take it. Latex Rash, Hives Morphine Unknown Comment:Other Reaction(s): Unknown cause Sulfa (Sulfonamide * Intolerance Prior to Admission Medications Prescriptions Last Dose Informant Patient Reported? Taking? LORazepam (ATIVAN) 1 mg tablet Yes Yes Sig: Take 1 mg by mouth every 6 hours as needed for anxiety. apixaban (ELIQUIS) 5 mg tab(s) 08/24/2023 Yes Yes Sig: Take 5 mg by mouth. aspirin, enteric coated (ASPIRIN, ENTERIC COATED) 81 mg EC tablet 08/24/2023 Yes Yes Sig: Take 81 mg by mouth. atorvastatin (LIPITOR) 40 mg tablet 08/23/2023 Yes Yes Sig: Take 40 mg by mouth. carvedilol (COREG) 3.125 mg tablet 08/24/2023 Yes Yes Sig: Take 3.125 mg by mouth two times a day with meals. digoxin (LANOXIN) 125 mcg (0.125 mg) tablet 08/24/2023 Yes Yes Sig: Take 125 mcg by mouth. furosemide (LASIX) 40 mg tablet 08/24/2023 Yes Yes Sig: Take 40 mg by mouth. losartan (COZAAR) 25 mg tablet 08/24/2023 Yes Yes Sig: Take 25 mg by mouth. ondansetron orally disintegrating (ZOFRAN ODT) 4 mg disintegrating tablet 08/24/2023 Yes Yes Sig: DISSOLVE 1 TABLET ON THE TONGUE EVERY 8 HOURS Facility-Administered Medications: None Arminda Coleman [address] [place], [place] [address]01-15-2024 NoteHNO ID: [id number] Author: FELISA RIBERA RPh Service: Pharmacy Author Type: Pharmacist Type: Plan of Care Filed: 08/28/2023 13:27 Note Text: [facility] Home Delivery Program Patient Name: Asya Asencio Admission Date: 08/24/2023 Date of Contact: August 28, 2023 Would patient like to be enrolled into [facility] Home Delivery program: No Arminda Coleman August 28, 2023 1:07 [facility]01-15-2024 NoteHNO ID: [id number] Author: DUKE MORELOS RN Service: Care Management Author Type: Registered Nurse Type: Care Mgt Progress Note Filed: 08/28/2023 10:54 Note Text: CARE MANAGEMENT PROGRESS NOTE SERVICE DATE: 08/28/2023 SERVICE TIME: 10:53 AM LOS: 4 days SCREENED OUT, REASSESS 08/30. 6 click 22, 97% RA. Per team: Not a surgical candidate. Anticipate GDMT and possible KRYSTINA DCCC if no intervention by structural team. This patient has been screened for Care Management Transitional Planning Services. At this time, it does not appear this patient will require transition planning services. Should this change, and the patient require transition planning services during this admission, please contact Case Management. SIGNATURE: Duke Morelos RN PATIENT NAME: Asya Asencio DATE: August 28, 2023 TIME: 10:53 AM PAGER/CONTACT #: [phone]01-15-2024 NoteHNO ID: [id number] Author: ARMINDA COLEMAN, Delia Service: Pharmacy Author Type: Artist Mannequin Coloring Type: Plan of Care Filed: 08/28/2023 09:37 Note Text: Reason for test claim: HVTI Patient not eligible for copay cards due to Medicare coverage. Jardiance Medication: Jardiance 10 mg tablets Qty: 30 tablets Day supply: 30 days Cost on insurance: $540.46 Deductible: $540.46 Post-deductible copay amount could be $0.00, but it is not confirmed in billing summary. Requires prior authorization: No Copay card/voucher available: Yes, voucher (to be used once per lifetime) Cost of medication on voucher: $0 for 14 days. Farxiga Medication: Farxiga 10 mg tablets Qty: 30 tablets Day supply: 30 days Cost on insurance: $514.94 Deductible: $514.94 Post-deductible copay amount could be $0.00, but it is not confirmed in billing summary. Requires prior authorization: No Copay card/voucher available: Yes, voucher (to be used once per lifetime) Cost of medication on voucher: $0 for 30 days. Entresto Medication: Entresto 24 mg - 26 mg tablets Qty: 60 tablets Day supply: 30 days Cost on insurance: $558.96 Deductible: $545.00 Post-deductible copay amount should be $13.96. Requires prior authorization: No Copay card/voucher available: Yes, voucher (to be used once per lifetime) Cost of medication on voucher: $0 for 30 days. Total number of sam checks: 3 Any questions, [place] [phone]. Thank you (Prices may vary at different pharmacy locations, this is the cost at [facility]01-15-2024 NoteHNO ID: [id number] Author: VIRY MIDDLETON MD Service: Cardiovascular Medicine Author Type: Physician Type: Progress Notes Filed: 08/28/2023 10:22 Note Text: [facility] PROGRESS NOTE NAME: Asya Asencio SERVICE DATE: 08/28/2023 Interval History and Plan for the Day: No acute events overnight. Today, sleeping well. HDS: Afebrile, HDS, SpO2 > 92% on RA I/O: 850 L in / 925 UOP in 24h New Imaging: None Consult updates: > Urology: - regular PVR bladder scans to ensure emptying, if retaining > 250 cc contact urology as may need robles - consider pyridium 200 mg TID for 6 doses for symptomatic management of urethral pain (ordered 08/26) - OP follow up requested by this team - Yesterday she voided in the morning 150, BS was 0 post void. She voided again in the evening 100, BS was 34 post void - UC with >=100,000 CFU/ml Klebsiella oxytoca, pending susceptibilities 24 hour plan: - follow bladder scans - Psychiatry cs Medications Current Facility-Administered Medications Medication Dose Route Frequency LORazepam 1 mg tab(s) (ATIVAN) 1 mg ORAL q 6 H PRN atorvastatin 40 mg tab(s) (LIPITOR) 40 mg ORAL AT BEDTIME digoxin 0.125 mg tab(s) (LANOXIN) 0.125 mg ORAL DAILY aspirin, enteric coated 81 mg tab(s) 81 mg ORAL DAILY acetaminophen 650 mg tab(s) (TYLENOL) 650 mg ORAL q 4 H PRN NaCl 0.9% iv flush bag 20 mL INTRAVENOUS PRN polyethylene glycol 3350 17 g packet 17 g ORAL DAILY PRN apixaban 5 mg tab(s) (ELIQUIS) 5 mg ORAL BID melatonin 6 mg tab(s) 6 mg ORAL/FEEDING TUBE DAILY (8 PM) senna 8.6 mg tab(s) (SENOKOT) 8.6 mg ORAL/FEEDING TUBE BID potassium chloride ER 10-60 mEq tab(s) (KLOR-CON M10) 10-60 mEq ORAL PRN spironolactone 25 mg tab(s) (ALDACTONE) 25 mg ORAL DAILY carvedilol 12.5 mg tab(s) (COREG) 12.5 mg ORAL BID w MEALS valsartan 80 mg tab(s) (DIOVAN) 80 mg ORAL DAILY Allergies Cephalexin, Demoral [Meperidine], Latex, Morphine, and Sulfa (Sulfonamide Antibiotics) Physical Exam BP 107/65 Pulse (!) 53 Temp 36.5 ?C (97.7 ?F) (Oral) Resp 18 Ht 165.1 cm (5' 5 ) Wt 51 kg (112 lb 7 oz) SpO2 97% BMI 18.71 kg/m? General Appearance: Well developed HEENT: EOM's intact Lungs: Clear Heart: Regular rate AND rhythm Abdomen: Soft and Non-distended Skin: Warm and Dry Musculoskeletal: No deformities Neurologic/Psychiatric: Oriented to time, place AND person Lines, Drains, and Airways Line Duration Peripheral 08/24/23 1906 Left Forearm 20 Gauge 3 days Intake / Output Intake/Output Summary (Last 24 hours) at 08/28/2023 0801 Last data filed at 08/28/2023 0536 Gross per 24 hour Intake 850 ml Output 925 ml Net -75 ml Work Up Imaging: US KIDNEY/BLADDER Final Result IMPRESSION: NO HYDRONEPHROSIS. Yard Stocker: PSCB Transcribe Date/Time: Aug 25 2023 10:35A Dictated by : NANCY YOUNGBLOOD MD This examination was interpreted and the report reviewed and electronically signed by: NANCY YOUNGBLOOD MD on Aug 25 2023 10:38AM EST Labs: CBC: Recent Labs 08/28/23 0521 08/27/23 0839 08/26/23 0702 08/25/23 0636 08/24/23 2113 08/23/23 1144 WBC 6.22 5.61 7.27 6.38 7.40 6.24 HB 12.3 12.7 12.8 12.8 13.2 14.4 HCT 37.8 38.9 38.5 37.8 40.4 43.4 PLT 180 143* 168 173 201 215 MCV 90.6 90.0 90.4 88.3 89.8 91.4 RDWCV 13.1 12.8 13.1 12.9 12.7 12.9 NEUTP -- -- -- -- 65.1 -- ABSNEUT -- -- -- -- 4.82 -- LYMPHP -- -- -- -- 23.4 -- MONOP -- -- -- -- 10.4 -- COAG: No results for input(s): APTT , INR in the last 168 hours. BMP: Recent Labs 08/28/2352008/27/23 0808/26/23 0708/25/23 1330 08/25/2363508/24/23211208/23/23 1144 08/23/23 0813 08/23/23 0732 GLUC 88 92 93 -- 84 123* 127* -- -- NA 140 140 140 -- 136 137 139 -- -- K 4.6 4.7 4.4 4.3 3.4* 3.7 4.1 -- -- CHLOR 106* 105 104 -- 97 97 98 -- -- CO2 24 27 26 -- 29 32* 32* -- -- ANION 10 8* 10 -- 10 8* 9 -- -- BUN 13 15 19 -- 22* 21 17 -- -- CREAT 0.75 0.72 0.84 -- 1.02* 1.11* 0.98* 0.97* 1.10 CHEM: Recent Labs 08/28/2352008/27/2383808/26/2370108/25/2363508/24/23211208/23/23 1144 ALB 3.5* 3.6* 3.5* 3.4* 3.8* 4.4 TPROT 5.9* 5.8* 5.7* 5.7* 6.1* 6.8 CA 9.5 9.1 8.9 9.0 9.2 9.8 MG -- -- -- 2.2 -- -- HEPATIC: Recent Labs 08/28/2352008/27/2383808/26/2370108/25/2363508/24/23211208/23/23 1144 ALKPHOS 52 59 60 48 61 66 ALT 31 29 25 26 34 40* AST 26 27 22 23 27 31 TBILI 0.5 0.5 0.4 0.9 0.7 0.8 URINALYSIS: Recent Labs 01/11/24 2115 SPGR 1.021 UGLUC Negative UBILI Negative UKET Trace* UHB Trace* UPROT 1+* CARDIAC: Recent Labs 08/23/23 1144 PBNP 3,265* Assessment and Plan 73 yo female with non-ischemic cardiomyopathy, HF with mildly reduced ejection fraction of 45%, Moderate to severe MR and TR, hx of Afib with RVR with controlled rates currently who presents for pre-operative optimization (more content not included)...[facility]01-14-2024 NoteHNO ID: [id number] Author: ARMINDA COLEMAN, ? Service: Pharmacy Author Type: Artist Mannequin Coloring Type: Plan of Care Filed: 08/27/2023 12:07 Note Text: Insurance investigation completed Patient has active prescription insurance: Yes - Patient's insurance is in-network with [facility] Insurance loaded into [place]: Yes Test claim was completed to verify insurance is active: Successful Any questions, please contact your medication patient access associate. Pager #: [phone] NoteHNO ID: [id number] Author: AMINA PETERSEN MD Service: Cardiovascular Medicine Author Type: Physician Type: Progress Notes Filed: 08/27/2023 12:32 Note Text: [facility]INE PROGRESS NOTE NAME: Asya Asencio SERVICE DATE: 08/27/2023 Interval History and Plan for the Day: No acute events overnight. Today, sleeping well. HDS: Afebrile, HDS, SpO2 > 92% on RA I/O: 1.4 L in / 1.3 UOP in 24h New Imaging: None Consult updates: > Urology: - regular PVR bladder scans to ensure emptying, if retaining > 250 cc contact urology as may need robles - obtain urine culture to rule out UTI - consider pyridium 200 mg TID for 6 doses for symptomatic management of urethral pain (ordered 08/26) - OP follow up requested by this team 24 hour plan: - follow bladder scans - Psychiatry cs Medications Current Facility-Administered Medications Medication Dose Route Frequency LORazepam 1 mg tab(s) (ATIVAN) 1 mg ORAL q 6 H PRN atorvastatin 40 mg tab(s) (LIPITOR) 40 mg ORAL AT BEDTIME digoxin 0.125 mg tab(s) (LANOXIN) 0.125 mg ORAL DAILY aspirin, enteric coated 81 mg tab(s) 81 mg ORAL DAILY acetaminophen 650 mg tab(s) (TYLENOL) 650 mg ORAL q 4 H PRN NaCl 0.9% iv flush bag 20 mL INTRAVENOUS PRN polyethylene glycol 3350 17 g packet 17 g ORAL DAILY PRN apixaban 5 mg tab(s) (ELIQUIS) 5 mg ORAL BID melatonin 6 mg tab(s) 6 mg ORAL/FEEDING TUBE DAILY (8 PM) senna 8.6 mg tab(s) (SENOKOT) 8.6 mg ORAL/FEEDING TUBE BID potassium chloride ER 10-60 mEq tab(s) (KLOR-CON M10) 10-60 mEq ORAL PRN valsartan 40 mg tab(s) (DIOVAN) 40 mg ORAL DAILY spironolactone 25 mg tab(s) (ALDACTONE) 25 mg ORAL DAILY phenazopyridine 100 mg tab(s) (PYRIDIUM) 100 mg ORAL TID after MEALS carvedilol 12.5 mg tab(s) (COREG) 12.5 mg ORAL BID w MEALS Allergies Cephalexin, Demoral [Meperidine], Latex, Morphine, and Sulfa (Sulfonamide Antibiotics) Physical Exam BP 121/55 Pulse 70 Temp 36.7 ?C (98 ?F) (Oral) Resp 18 Ht 165.1 cm (5' 5 ) Wt 51.2 kg (112 lb 14 oz) SpO2 98% BMI 18.78 kg/m? General Appearance: Well developed HEENT: EOM's intact Lungs: Clear Heart: Regular rate AND rhythm Abdomen: Soft and Non-distended Skin: Warm and Dry Musculoskeletal: No deformities Neurologic/Psychiatric: Oriented to time, place AND person Lines, Drains, and Airways Line Duration Peripheral 08/24/23 1906 Left Forearm 20 Gauge 2 days Intake / Output Intake/Output Summary (Last 24 hours) at 08/27/2023 0801 Last data filed at 08/27/2023 0135 Gross per 24 hour Intake 1390 ml Output 1290 ml Net 100 ml Work Up Imaging: US KIDNEY/BLADDER Final Result IMPRESSION: NO HYDRONEPHROSIS. Yard Stocker: LILIANA Transcribe Date/Time: Aug 25 2023 10:35A Dictated by : NANCY YOUNGBLOOD MD This examination was interpreted and the report reviewed and electronically signed by: NANCY YOUNGBLOOD MD on Aug 25 2023 10:38AM EST Labs: CBC: Recent Labs 08/26/2370108/25/2363508/24/23211208/23/23 1144 WBC 7.27 6.38 7.40 6.24 HB 12.8 12.8 13.2 14.4 HCT 38.5 37.8 40.4 43.4 PLT 168 173 201 215 MCV 90.4 88.3 89.8 91.4 RDWCV 13.1 12.9 12.7 12.9 NEUTP -- -- 65.1 -- ABSNEUT -- -- 4.82 -- LYMPHP -- -- 23.4 -- MONOP -- -- 10.4 -- COAG: No results for input(s): APTT , INR in the last 168 hours. BMP: Recent Labs 08/26/2370108/25/23 1330 08/25/2363508/24/23211208/23/23 1144 08/23/23 0813 08/23/23 0732 GLUC 93 -- 84 123* 127* -- -- NA 140 -- 136 137 139 -- -- K 4.4 4.3 3.4* 3.7 4.1 -- -- CHLOR 104 -- 97 97 98 -- -- CO2 26 -- 29 32* 32* -- -- ANION 10 -- 10 8* 9 -- -- BUN 19 -- 22* 21 17 -- -- CREAT 0.84 -- 1.02* 1.11* 0.98* 0.97* 1.10 CHEM: Recent Labs 08/26/2370108/25/2363508/24/23211208/23/23 1144 ALB 3.5* 3.4* 3.8* 4.4 TPROT 5.7* 5.7* 6.1* 6.8 CA 8.9 9.0 9.2 9.8 MG -- 2.2 -- -- HEPATIC: Recent Labs 08/26/2370108/25/2363508/24/23211208/23/23 1144 ALKPHOS 60 48 61 66 ALT 25 26 34 40* AST 22 23 27 31 TBILI 0.4 0.9 0.7 0.8 URINALYSIS: Recent Labs 08/24/23 2115 SPGR 1.021 UGLUC Negative UBILI Negative UKET Trace* UHB Trace* UPROT 1+* CARDIAC: Recent Labs 08/23/23 1144 PBNP 3,265* Assessment and Plan 73 yo female with non-ischemic cardiomyopathy, HF with mildly reduced ejection fraction of 45%, Moderate to severe MR and TR, hx of Afib with RVR with controlled rates currently who presents for pre-operative optimization and evaluation of MR and TR replacement. Principal Problem: Mitral valve regurgitation due to cardiomyopathy (HCC) Active Problems: Acute on chronic systolic congestive heart failure (HCC) Cardiomyopathy, nonischemic (HCC) #NICM #HF with mildly reduced EF #Mod-Severe MR and TR AHA stage B EF= 45% on most recent echo 08/23; not in acute exacerbation Has moderate to severe central MR in the setting of (more content not included)...[facility]01-13-2024 NoteHNO ID: [id number] Author: AMINA PETERSEN MD Service: Cardiovascular Medicine Author Type: Physician Type: Progress Notes Filed: 08/26/2023 16:13 Note Text: [facility]ICINE PROGRESS NOTE NAME: Asya Asencio SERVICE DATE: 08/26/2023 Interval History and Plan for the Day: No acute event overnight Patient stating that she had a weird sensation after she had a drink with additives, but no dizziness or lightheadedness HDS on RA 24 hour plan: - Urology cs - Psychiatry cs Medications Current Facility-Administered Medications Medication Dose Route Frequency LORazepam 1 mg tab(s) (ATIVAN) 1 mg ORAL q 6 H PRN atorvastatin 40 mg tab(s) (LIPITOR) 40 mg ORAL AT BEDTIME digoxin 0.125 mg tab(s) (LANOXIN) 0.125 mg ORAL DAILY aspirin, enteric coated 81 mg tab(s) 81 mg ORAL DAILY acetaminophen 650 mg tab(s) (TYLENOL) 650 mg ORAL q 4 H PRN NaCl 0.9% iv flush bag 20 mL INTRAVENOUS PRN polyethylene glycol 3350 17 g packet 17 g ORAL DAILY PRN apixaban 5 mg tab(s) (ELIQUIS) 5 mg ORAL BID melatonin 6 mg tab(s) 6 mg ORAL/FEEDING TUBE DAILY (8 PM) senna 8.6 mg tab(s) (SENOKOT) 8.6 mg ORAL/FEEDING TUBE BID potassium chloride ER 10-60 mEq tab(s) (KLOR-CON M10) 10-60 mEq ORAL PRN carvedilol 6.25 mg tab(s) (COREG) 6.25 mg ORAL BID w MEALS valsartan 40 mg tab(s) (DIOVAN) 40 mg ORAL DAILY spironolactone 25 mg tab(s) (ALDACTONE) 25 mg ORAL DAILY Allergies Cephalexin, Demoral [Meperidine], Latex, Morphine, and Sulfa (Sulfonamide Antibiotics) Physical Exam BP 121/58 Pulse 69 Temp 36.5 ?C (97.7 ?F) (Oral) Resp 19 Ht 165.1 cm (5' 5 ) Wt 51.2 kg (112 lb 14 oz) SpO2 100% BMI 18.78 kg/m? General Appearance: Well developed HEENT: EOM's intact Lungs: Clear Heart: Regular rate AND rhythm Abdomen: Soft and Non-distended Skin: Warm and Dry Musculoskeletal: No deformities Neurologic/Psychiatric: Oriented to time, place AND person Lines, Drains, and Airways Line Duration Peripheral 08/24/23 1906 Left Forearm 20 Gauge 1 day Intake / Output Intake/Output Summary (Last 24 hours) at 08/26/2023 1547 Last data filed at 08/26/2023 1532 Gross per 24 hour Intake 1870 ml Output 400 ml Net 1470 ml Work Up Imaging: US KIDNEY/BLADDER Final Result IMPRESSION: NO HYDRONEPHROSIS. Yard Stocker: LILIANA Transcribe Date/Time: Aug 25 2023 10:35A Dictated by : NANCY YOUNGBLOOD MD This examination was interpreted and the report reviewed and electronically signed by: NANCY YOUNGBLOOD MD on Aug 25 2023 10:38AM EST Labs: CBC: Recent Labs 08/26/23 0702 08/25/23 0636 08/24/23 2113 08/23/23 1144 WBC 7.27 6.38 7.40 6.24 HB 12.8 12.8 13.2 14.4 HCT 38.5 37.8 40.4 43.4 PLT 168 173 201 215 MCV 90.4 88.3 89.8 91.4 RDWCV 13.1 12.9 12.7 12.9 NEUTP -- -- 65.1 -- ABSNEUT -- -- 4.82 -- LYMPHP -- -- 23.4 -- MONOP -- -- 10.4 -- COAG: No results for input(s): APTT , INR in the last 168 hours. BMP: Recent Labs 08/26/23 0702 08/25/23 1330 08/25/23 0636 08/24/23211208/23/23 1144 08/23/23 0813 08/23/23 0732 GLUC 93 -- 84 123* 127* -- -- NA 140 -- 136 137 139 -- -- K 4.4 4.3 3.4* 3.7 4.1 -- -- CHLOR 104 -- 97 97 98 -- -- CO2 26 -- 29 32* 32* -- -- ANION 10 -- 10 8* 9 -- -- BUN 19 -- 22* 21 17 -- -- CREAT 0.84 -- 1.02* 1.11* 0.98* 0.97* 1.10 CHEM: Recent Labs 08/26/23 0708/25/2363508/24/23211208/23/23 1144 ALB 3.5* 3.4* 3.8* 4.4 TPROT 5.7* 5.7* 6.1* 6.8 CA 8.9 9.0 9.2 9.8 MG -- 2.2 -- -- HEPATIC: Recent Labs 08/26/23 0708/25/2363508/24/23211208/23/23 1144 ALKPHOS 60 48 61 66 ALT 25 26 34 40* AST 22 23 27 31 TBILI 0.4 0.9 0.7 0.8 URINALYSIS: Recent Labs 08/24/232114 SPGR 1.021 UGLUC Negative UBILI Negative UKET Trace* UHB Trace* UPROT 1+* CARDIAC: Recent Labs 08/23/23 1144 PBNP 3,265* Assessment and Plan 73 yo female with non-ischemic cardiomyopathy, HF with mildly reduced ejection fraction of 45%, Moderate to severe MR and TR, hx of Afib with RVR with controlled rates currently who presents for pre-operative optimization and evaluation of MR and TR replacement. Principal Problem: Mitral valve regurgitation due to cardiomyopathy (HCC) Active Problems: Acute on chronic systolic congestive heart failure (HCC) Cardiomyopathy, nonischemic (HCC) #NICM #HF with mildly reduced EF #Mod-Severe MR and TR AHA stage B EF= 45% on most recent echo 08/23; not in acute exacerbation Has moderate to severe central MR in the setting of a dilated and diffusely hypo-contractile LV with EF estimates about 30% off of rate controlling medications and 45% when rates are controlled suggesting that in the absence of significant CAD this is more likely tachy mediated. She is currently on losartan 25 mg, carvedilol 3.125 mg Plan: - The patient will need to optimize her GDMT to improve heart function: - Stop l (more content not included)...[facility]01-13-[facility]24 History of Past illness Narrative* Problem Noted Date Diagnosed Date Resolved Date Acute on chronic systolic co ngestive heart failure 08/26/2023 08/27/2023 documented as of this encounter (statuses as of 09/17/2023) [facility]01-13-2024 History of Past illness Narrative* Problem Noted Date Diagnosed Date Resolved Date Acute on chronic systolic co ngestive heart failure 08/26/2023 08/27/2023 documented as of this encounter (statuses as of 09/21/2023) [facility]01-13-[facility]24 History of Past illness Narrative* Problem Noted Date Diagnosed Date Resolved Date Acute on chronic systolic co ngestive heart failure 08/26/2023 08/27/2023 documented as of this encounter (statuses as of 09/26/2023) [facility]01-13-[facility]24 History of Past illness Narrative* Problem Noted Date Diagnosed Date Resolved Date Acute on chronic systolic co ngestive heart failure 08/26/2023 08/27/2023 documented as of this encounter (statuses as of 09/26/2023) [facility]01-13-[facility] History of Past illness Narrative* Problem Noted Date Diagnosed Date Resolved Date Acute on chronic systolic co ngestive heart failure 08/26/2023 08/27/2023 documented as of this encounter (statuses as of 09/29/2023) [facility]01-13-[facility]24 History of Past illness Narrative* Problem Noted Date Diagnosed Date Resolved Date Acute on chronic systolic co ngestive heart failure 08/26/2023 08/27/2023 documented as of this encounter (statuses as of 10/02/2023) [facility]01-13-2024 NoteHNO ID: [id number] Author: NOTE, INTERFACE, ? Service: ? Author Type: ? Type: Progress Notes Filed: 08/26/2023 02:15 Note Text: Epic Scheduled Downtime: 08/26/2023 1:00:00 AM to 08/26/2023 2:04:22 [facility]01-12-2024 NoteHNO ID: [id number] Author: DUKE MORELOS RN Service: Care Management Author Type: Registered Nurse Type: Care Mgt Initial Assessment Filed: 08/25/2023 14:46 Note Text: CARE MANAGEMENT: ASSESSMENT AND DISCHARGE PLAN SERVICE DATE: August 25, 2023 SERVICE TIME: 2:45 PM SCREENED OUT, REASSESS 08/28. 6 CLICK 23, 95% RA. Moderate to severe MR and TR, hx of Afib with RVR with controlled rates currently who presents for pre-operative optimization and evaluation of MR and TR replacement. PCP: Peggy Nazario MD Primary Contact: Extended Emergency Contact Information Primary Emergency Contact: AIRAM ASENCIO Mobile Relation: Son Secondary Emergency Contact: ELIFIVÁN Mobile Relation: Daughter Admission Status: Inpatient Insurance Provider: MEDICARE A AND B SIGNATURE: Duke Morelos RN PATIENT NAME: Asya Asencio DATE: August 25, 2023 TIME: 2:45 PM CONTACT #: [phone] Note HNO ID: [id number] Author: MICHELINE SORTO MD Service: ? Author Type: Physician Type: Progress Notes Filed: 08/24/2023 08:19 Note Text: [facility] [place] DEPARTMENT OF CARDIAC SURGERY OUTPATIENT VISIT PCP: Peggy [place] [address] Referring Physician: Micheline Sorto [address] [facility] [address] Patient Type: New Visit to Determine Surgery: Yes HPI: Ms. Asya Asencio is a 73 year old female seen regarding candidacy for cardiac surgery. She is currently symptomatic and complains of dyspnea on exertion Comorbidities include PAST MEDICAL HISTORY Diagnosis Date Anxiety state, unspecified GERD (gastroesophageal reflux disease) Heart murmur Hemorrhoids HTN (hypertension) Hypothyroid IBS (irritable bowel syndrome) Mitral regurgitation Proctocolitis Rectal pain Tricuspid regurgitation Urethral stricture . I have personally reviewed and analyzed all records that pertain to the patient's prior course in addition to the following studies: cardiac catheterization, CT scan, and TTE. Last CT Result Conclusion CTA CHEST (GATED) W IVCON Exam End: 08/23/2023 7:47 AM (Final result) Impression: IMPRESSION: Dilated left ventricle, biatrial enlargement. Mitral valve is noncalcified. Normal caliber thoracic aorta. Yard Stocker: LILIANA Transcribe Date/Time: Aug 23 2023 11:20A Dictated by : SARAH CARNEY MD This examination was interpreted and the report reviewed and electronically signed by: SARAH CARNEY MD on Aug 23 2023 12:14PM EST Last ECHO Result Conclusion ECHO Collected: 08/23/2023 2:15 PM (Edited Result - FINAL) Impression: CONCLUSIONS: - Exam indication: Valvular heart disease - The left ventricle is dilated. Left ventricular systolic function is mildly decreased. EF = 45 ? 5% (visual est.) Beat to beat variation in LV systolic function. - The right ventricle is normal in size. Right ventricular systolic function is normal. - The left atrial cavity is mildly dilated. - The right atrial cavity is dilated. - There is moderate (2+ - 3+) holosystolic mitral valve regurgitation. In certain views it appears closer to 3+ (A3c, clip 66 for instance). Multiple MR jets, PISA estimation is limited. Suboptimal PV flow waveform. MR is better seen and more prominent on outside KRYSTINA 07/21/23. - There is moderately severe (3+) tricuspid valve regurgitation. - Estimated right ventricular systolic pressure is 44 mmHg consistent with mild pulmonary hypertension. Estimated right atrial pressure is 8 mmHg based on IVC assessment. - The patient has not had a prior CC echocardiographic exam for comparison. * * * Final (Updated) * * * Impression: Moderately severe MR and TR Chronic systolic heart failure Plan: Discussed with patient and cardiology, Dr. Harley. Not on GDMT, to be admitted for optimization per cardiology. Would obtain structural TMVr/TTVr input Consider DCCV Based on my evaluation she is a high risk for cardiac surgery. These findings will be communicated back to the requesting physician via electronic medical record Micheline Sorto, [facility]01-10-2024 NoteHNO ID: [id number] Author: ALEA HARLEY MD Service: ? Author Type: Physician Type: Progress Notes Filed: 08/23/2023 12:58 Note Text: [facility] Department of Cardiovascular Medicine SECTION OF CLINICAL CARDIOLOGY OUTPATIENT VISIT DATE August 23, 2023 OUTPATIENT VISIT TYPE NEW PRIMARY CARE PHYSICIAN: Peggy Nazario MD [address] [place] [address] REFERRING PHYSICIAN: Micheline Sorto [address] [facility] [address] CHIEF COMPLAINT: Mitral regurgitation. HISTORY OF PRESENT ILLNESS: Ms. Asencio is a 73 year old female who presents today at the request of Dr. Micheline Sorto for a preoperative evaluation and to determine best management for relatively recently discovered diagnoses of NICM, what is now persistent atrial fibrillation and mitral regurgitation. The discovery of these findings dates to this past mid June when she presented with difficulty in emptying her bladder. When seen in the [facility] ER, she was found to be in atrial fibrillation and, from what she describes, with rapid ventricular response. She had been having difficulty with bladder outlet issues, ie. urethral stricture since the summer. It was dilated in mid April but she never felt well since then with continued emptying problems. But when further questioned she was unaware of a rapid pulse, being short of breath or developing either orthopnea or edema. Nonetheless when found to be in AF in June she was admitted for further management after initiating rate control Rx. She was hospitalized three or four days and her workup had included a TTE on 07/03/2023 which found her LVEF to be on the order of 30%, dilated and in the setting of LAE, she was also demonstrated to have moderate to severe MR. A left and right heart catheterization that same demonstrated her to have mild PHT with a significant v wave on PCW, and what is felt to be non obstructive plaquing involving the ostial segment of her LAD. Otherwise she did not have any contralateral disease to explain her LV impairment outside of her afib. After discharge she underwent a follow up KRYSTINA with Dr. Henriquez who then found her EF to be 40%, with what he interpreted to be severe, central MR - although ERO calculation was more conservative at 0.26 cm2 without PV flow reversal. On medical management that includes dig, low dose carvedilol, DOAC with apixaban, and low dose losartan she feels better. She is being referred by her private shirt cleaner, Dr.D. Henriquez for consideration of MVr. As she states, prior to all this she was very active - participating in aerobic dancing and while she has improved considerably on medical management I want no pills and would like to pursue surgery. In the meantime, given the severity of observed LV impairment initially observed in June, she has been prescribed a wearable cardiac defibrillator. She is not aware of any significant ventricular ectopy, nor is that evident in her records. She denies any spell of palpitations or being syncopal as well as denying, any resultant symptoms such as chest pain, orthopnea, cough, edema, or PND. NURSING INTAKE: Ms. Asencio is a 73 year old female from [place], [place] here today for cardiovascular evaluation related to severe mitral and tricuspid regurgitation. She is currently consulted with Dr. Sorto in cardiac surgery for potential surgical intervention. Asya has a significant medical history of GERD, heart murmur, HTN, IBS, tricuspid regurgitation, hypothyroid, anxiety, mitral valve regurgitation. She reports the following symptoms: aching in her chest. PAST MEDICAL HISTORY Diagnosis Date Anxiety state, unspecified GERD (gastroesophageal reflux disease) Heart murmur Hemorrhoids HTN (hypertension) Hypothyroid IBS (irritable bowel syndrome) Mitral regurgitation Proctocolitis Rectal pain Tricuspid regurgitation Urethral stricture PAST SURGICAL HISTORY Procedure Laterality Date EXC CYST/ABERRANT BREAST TISSUE OPEN 1/> LESION PAST SURGICAL HISTORY OF 1995 tailbone surgery TOTAL ABDOMINAL HYSTERECT W/WO RMVL TUBE OVARY Hysterectomy, MIR UNLISTED PROCEDURE ABDOMEN PERITONEUM AND OMENTUM 1996 Sigmoid colectomy with primary end-to-end colorectal anastomosis. SOCIAL HISTORY Social History Tobacco Use Smoking status: Former Smokeless tobacco: Never Tobacco comments: Quit 1996. social smoker mostly Substance Use Topics Alcohol use: Yes Comment: occas Drug use: No FAMILY HISTORY Problem Relation Age of Onset Diabetes Mother Heart disease Mother Heart disease Father ALLERGIES: ALLERGIES Allergen Reactions Aspirin Other: See Comments Patient states causes Bruising. Cephalexin Unknown Demoral [Meperidine] Other: See Comments Patient does not know if she is allergic but know she is not suppose to take it. Late (more content not included)...[facility]01-10-2024 NoteHNO ID: [id number] Author: MITCH SCALES RN Service: Nursing Author Type: Registered Nurse Type: Progress Notes Filed: 08/23/2023 07:34 Note Text: Radiology Service Progress Note DATE OF SERVICE: August 23, 2023 TIME: 7:21 AM PATIENT WEIGHT: 115 LBS PATIENT IDENTITY VERIFICATION COMPLETED USING TWO (2) STANDARD IDENTIFIERS: Name and Date of confirmed by patient verbally and Name and Date of confirmed by identification band. FALL SCREENING: Has the patient had 2 falls in the last year or 1 fall with injury or currently using an Ambulatory Assistive Device (Walker, Cane, Wheelchair, Crutches, etc.)? No PATIENT GENDER DATA: Female. status: : No status: NO. ALLERGIES: Reviewed and unchanged CONTRAST ALLERGY: No EXAM: CT -CONTRAST INDUCED NEPHROPATHY RISK FACTORS: Patient age > 60 years and Dehydration CREATININE: Creatinine (POCT) Date Value Ref Range Status 08/23/2023 1.10 0.7 - 1.4 mg/dL Final 10/10/2012 0.76 0.6 - 1.5 mg/dL Final eGFR (POCT) Date Value Ref Range Status 08/23/2023 52 mL/min/1.73 m2 Final P.O.C.T. RESULTS: POC done: Yes, See Lab Tab August 23, 2023 TREATMENT: N/A IV SITE: Ambulatory: A peripheral IV was started in the Right antecubital site with a Angio cath: 20 gauge. and A Saline lock was inserted per protocol IV SITE APPEARANCE: Clean,Dry and Intact SIGNATURE: Mitch Scales RN PATIENT NAME: Asya Asencio DATE: August 23, 2023 TIME: 7:21 [facility]01-10-2024 NoteHNO ID: [id number] Author: ANDREW MEEHAN RT(R) Service: Radiology Author Type: Technologist Type: Progress Notes Filed: 08/23/2023 07:46 Note Text: Radiology Service Progress Note PATIENT NAME: Asya Asencio DATE OF SERVICE: August 23, 2023 TIME: 7:35 AM PATIENT IDENTITY VERIFICATION COMPLETED USING TWO (2) IDENTIFIERS: Name and Date of confirmed by patient verbally and Name and Date of confirmed by identification band. FALL SCREENING: Has the patient had 2 falls in the last year or 1 fall with injury or currently using an Ambulatory Assistive Device (Walker, Cane, Wheelchair, Crutches, etc.)? No PATIENT GENDER DATA: Female. status: : No status: NO. PATIENT RELEVANT IMPLANT DATA REVIEWED: Yes RADIOLOGY DEPARTMENT: CT; Exam(s) Completed: CTA Cardiac PERIPHERAL IV DATA: Site assessment: Clean,Dry and Intact, Site disposition Discontinued SIGNED BY: Andrew Meehan RT(R) August 23, 2023 7:35 [facility]12-11-2023 Note [id number] [facility] Miscellaneous Notes* Telephone Encounter - Rebecca Nunn - 07/24/2023 10:22 AM EST IN * Telephone Encounter - Katie Nicholson - 07/24/2023 10:08 AM EST Please register insurance Thank you! [facility] + Plan note Extracted from: Title:Procedure Note Heart & Vascular Author:LEYDA KELLER MD, Johan Patino Date:07/21/23 Ordered: benzocaine/butamben/tetracaine topical, 3 spray(s), [place]-Top, Topical, q2min PRN Other (see comment), Routine, Start date 07/21/23 7:00:00 EST fentanyl, 100 microgram = 2 mL, Injection, IV Push, q2min PRN Other (see comment) for 4 dose(s), Stop date Limited # of times, Routine, Start date 07/21/23 7:00:00 EST, 07/21/23 7:00:00 EST midazolam, 2 mg = 2 mL, Injection, IV Push, As Directed PRN Other (see comment) for 4 dose(s), Stop date Limited # of times, Routine, Start date 07/21/23 7:00:00 EST, 07/21/23 7:00:00 EST Sodium Chloride 0.9% intravenous solution 1,000 mL, 1,000 mL, IV, 25 mL/hr, Routine, Start date 07/21/23 6:30:00 EST, 40 hour(s), Total volume (mL): 1,000, 53.8 kg, 1.57, m2 Cardiac Monitoring Communication Order Physician to Nursing ECG 12 Lead Adult Echo Transesophageal 2D Echo Transesophageal 2D Evaluate Need For Continued Telemetry NPO Diet Oxygen Therapy Saline Lock Insert Suctioning KRYSTINA ([facility]) Vital Signs Future Appointments Appointment Date:01/24/2024 02:30:00 PM Scheduled Provider:Micheline BROOKS MD Location:[facility] Appointment Type:URO Office Visit Future Scheduled Tests Laboratory* Basic Metabolic Panel 07/12/23 * Digoxin Level 07/12/23 [facility]12-08-2023 Hospital Discharge instructions Patient Education 07/21/2023 08:44:29 CV - Post-Transesophageal Echocardiogram (Custom) [place], [place] POST-TRANSESOPHAGEAL ECHOCARDIOGRAM AFTER THE PROCEDURE: Diet: May eat/drink and/or take normal daily medications after 10:45 Activity: You should have someone stay with you for the next [address], make important decisions, drink alcohol or operate machinery for the next 24 hours. Medications: Resume pre-procedure medications unless otherwise directed. Post Procedure: Your throat may be sore and scratchy. This will go away slowly over time. Keep follow up appointment Seek Medical Care if: Notify your shirt cleaner should you have any difficulty swallowing or coughing up blood. In the event you are unable to reach your shirt cleaner, please call [facility] at [phone] and the coating machine operator will assist you. Follow Up Care 07/20/2023 11:03:45 With:Johan HENRIQUEZ Address: [address] [place] [address]- [phone] Business (1) When: Unknown Comments:-After your appointment with [facility]12-08-2023 Evaluation + Plan note Future Appointments Appointment Date:07/21/2023 08:00:00 AM Scheduled Provider: Location[facility] Appointment Type:[facility] () Appointment Date:07/21/2023 08:00:00 AM Scheduled Provider: Location:.[facility] Appointment Type:CV Echo () Appointment Date:01/24/2024 02:30:00 PM Scheduled Provider:Micheline BROOKS MD Location[facility] Appointment Type:URO Office Visit Future Scheduled Tests Laboratory* Basic Metabolic Panel 07/12/23 * Digoxin Level 07/12/23 Radiology* Echo Transesophageal 2D 07/21/23 [facility]11-24-2023 Hospital Discharge instructions Patient Education 07/07/2023 13:04:14 Managing Anxiety, Adult Managing Anxiety, Adult After being diagnosed with anxiety, you may be relieved to know why you have felt or behaved a certain way. You may also feel overwhelmed about the treatment ahead and what it will mean for your life. With care and support, you can manage this condition. How to manage lifestyle changes Managing stress and anxiety Stress is your body's reaction to life changes and events, both good and bad. Most stress will lastjust a few hours, but stress can be ongoing and can lead to more than just stress. Although stress can play a major role in anxiety, it is not the same as anxiety. Stress is usually caused by something external, such as a deadline, test, or competition. Stress normally passes after the triggering event has ended. Anxiety is caused by something internal, such as imagining a terrible outcome or worrying that something will go wrong that will devastate you. Anxiety often does not go away even after the triggering event is over, and it can become long-term (chronic) worry. It is important to understand the differences between stress and anxiety and to manage your stress effectively so that it does not lead luke anxious response. Talk with your health care provider or a counselor to learn more about reducing anxiety and stress.He or she may suggest tension reduction techniques, such as: Music therapy. Spend time creating or listening to music that you enjoy and that inspires you. Mindfulness-based meditation. Practice being aware of your normal breaths while not trying to control your breathing. It can be done while sitting or walking. Centering prayer. This involves focusing on a word, phrase, or sacred image that means something toyou and brings you peace. Deep breathing. To do this, expand your stomach and inhale slowly through your nose. Hold your breath for 3 5 seconds. Then exhale slowly, letting your stomach muscles relax. Self-talk. Learn to notice and identify thought patterns that lead to anxiety reactions and change those patterns to thoughts that feel peaceful. Muscle relaxation. Taking time to tense muscles and then relax them. Choose a tension reduction technique that fits your lifestyle and personality. These techniques take time and practice. Set aside 5 15 minutes a day to do them. Therapists can offer counseling and training in these techniques. The training to help with anxiety may be covered by some insurance plans. Other things you can do to manage stress and anxiety include: Keeping a stress diary. This can help you learn what triggers your reaction and then learn ways to manage your response. Thinking about how you react to certain situations. You may not be able to control everything, but you can control your response. Making time for activities that help you relax and not feeling guilty about spending your time in this way. Doing visual imagery. This involves imagining or creating mental pictures to help you relax. Practicing yoga. Through yoga poses, you can lower tension and promote relaxation. Medicines Medicines can help ease symptoms. Medicines for anxiety include: Antidepressant medicines. These are usually prescribed for long-term daily control. Anti-anxiety medicines. These may be added in severe cases, especially when panic attacks occur. Medicines will be prescribed by a health care provider. When used together, medicines, psychotherapy, and tension reduction techniques may be the most effective treatment. Relationships Relationships can play a big part in helping you recover. Try to spend more time connecting with trusted friends and family members. Consider going to couples counseling if you have a partner, taking family education classes, or going to family therapy. Therapy can help you and others better understand your condition. How to recognize changes in your anxiety Everyone responds differently to treatment for anxiety. Recovery from anxiety happens when symptomsdecrease and stop interfering with your daily activities at home or work. This may mean that you will start to: Have better concentration and focus. Worry will interfere less in your daily thinking. Sleep better. Be less irritable. Have more energy. Have improved memory. It is also important to recognize when your condition is getting worse. Contact your health care provider if your symptoms interfere with home or work and you feel like your condition is not improving. Follow these instructions at home: Activity Exercise. Adults should do the following: ?Exercise for at least 150 minutes each week. The exercise should increase your heart rate and makeyou sweat (moderate-intensity exercise). ?Strengthening exercises at least twice a week. Get the right amount and quality of sleep. Most adults need 7 9 hours of sleep each night. Lifestyle Eat a healthy diet that includes plenty of vegetables, fruits, whole grains, low-fat dairy products, and lean protein. ?Do not eat a lot of foods that are high in fats, added sugars, or salt (sodium). Make choices that simplify your life. Do not use any products that contain nicotine or tobacco. These products include cigarettes, chewing tobacco, and vaping devices, such as e-cigarettes. If you need help quitting, ask your health careprovider. Avoid caffeine, alcohol, and certain rqia-hsu-xjnuooh cold medicines. These may make you feel worse. Ask your pharmacist which medicines to avoid. General instructions Take ujpl-zhj-jjvdjot and prescription medicines only as told by your health care provider. Keep all follow-up visits. This is important. Where to find support You can get help and support from these sources: Self-help groups. Online and community organizations. A trusted spiritual leader. Couples counseling. Family education classes. Family therapy. Where to find more information You may find that joining a support group helps you deal with your anxiety. The following sources can help you locate counselors or support groups near you: Mental Health [place]: www.mentalhealthamerica.net Anxiety and Depression Association of [place] (ADAA): www.adaa.org National [place] [employer] Mental Illness (YAIN): www.yani.org Contact a health care provider if: You have a hard time staying focused or finishing daily tasks. You spend many hours a day feeling worried about everyday life. You become exhausted by worry. You start to have headaches or frequently feel tense. You develop chronic nausea or diarrhea. Get help right away if: You have a racing heart and shortness of breath. You have thoughts of hurting yourself or others. If you ever feel like you may hurt yourself or others, or have thoughts about taking your own life,get help right away. Go to your nearest emergency department or: Call your local emergency services (711 in the [place] Call a suicide crisis helpline, such as the National Suicide Prevention Lifeline at or 456 in the [place] This is open 24 hours a day in the [place] Text the Crisis Text Line at 227985 (in the [place] Summary Taking steps to learn and use tension reduction techniques can help calm you and help prevent triggering an anxiety reaction. When used together, medicines, psychotherapy, and tension reduction techniques may be the most effective treatment. Family, friends, and partners can play a big part in supporting you. This information is not intended to replace advice given to you by your health care provider. Make sure you discuss any questions you have with your health care provider. Document Revised: 02/23/2022 Document Reviewed: 11/21/2021 [employer] Patient Education 2022 [employer]. 07/07/2023 13:04:14 Atrial Fibrillation Atrial Fibrillation Atrial fibrillation is a type of irregular or rapid heartbeat (arrhythmia). In atrial fibrillation,the top part of the heart (atria) beats in an irregular pattern. This makes the heart unable to pump blood normally and effectively. The goal of treatment is to prevent blood clots from forming, control your heart rate, or restore your heartbeat to a normal rhythm. If this condition is not treated, it can cause serious problems, such as a weakened heart muscle (cardiomyopathy) or a stroke. What are the causes? This condition is often caused by medical conditions that damage the heart's electrical system. These include: High blood pressure (hypertension). This is the most common cause. Certain heart problems or conditions, such as heart failure, coronary artery disease, heart valve problems, or heart surgery. Diabetes. Overactive thyroid (hyperthyroidism). Obesity. Chronic kidney disease. In some cases, the cause of this condition is not known. What increases the risk? This condition is more likely to develop in: Older people. People who smoke. Athletes who do endurance exercise. People who have a family history of atrial fibrillation. Men. People who use drugs. People who drink a lot of alcohol. People who have lung conditions, such as emphysema, pneumonia, or COPD. People who have obstructive sleep apnea. What are the signs or symptoms? Symptoms of this condition include: A feeling that your heart is racing or beating irregularly. Discomfort or pain in your chest. Shortness of breath. Sudden light-headedness or weakness. Tiring easily during exercise or activity. Fatigue. Syncope (fainting). Sweating. In some cases, there are no symptoms. How is this diagnosed? Your health care provider may detect atrial fibrillation when taking your pulse. If detected, this condition may be diagnosed with: An electrocardiogram (ECG) to check electrical signals of the heart. An ambulatory cardiac catheterization technician to record your heart's activity for a few days. A transthoracic echocardiogram (TTE) to create pictures of your heart. A transesophageal echocardiogram (KRYSTINA) to create even closer pictures of your heart. A stress test to check your blood supply while you exercise. Imaging tests, such as a CT scan or chest X-ray. Blood tests. How is this treated? Treatment depends on underlying conditions and how you feel when you experience atrial fibrillation. This condition may be treated with: Medicines to prevent blood clots or to treat heart rate or heart rhythm problems. Electrical cardioversion to reset the heart's rhythm. A pacemaker to correct abnormal heart rhythm. Ablation to remove the heart tissue that sends abnormal signals. Left atrial appendage closure to seal the area where blood clots can form. In some cases, underlying conditions will be treated. Follow these instructions at home: Medicines Take over-the counter and prescription medicines only as told by your health care provider. Do not take any new medicines without talking to your health care provider. If you are taking blood thinners: ? Talk with your health care provider before you take any medicines that contain aspirin or NSAIDs,such as ibuprofen. These medicines increase your risk for dangerous bleeding. ?Take your medicine exactly as told, at the same time every day. ?Avoid activities that could cause injury or bruising, and follow instructions about how to preventfalls. ?Wear a medical alert bracelet or carry a card that lists what medicines you take. Lifestyle Do not use any products that contain nicotine or tobacco, such as cigarettes, e- cigarettes, and chewing tobacco. If you need help quitting, ask your health care provider. Eat heart-healthy foods. Talk with a dietitian to make an eating plan that is right for you. Exercise regularly as told by your health care provider. Do not drink alcohol. Lose weight if you are overweight. Do not use drugs, including cannabis. General instructions If you have obstructive sleep apnea, manage your condition as told by your health care provider. Do not use diet pills unless your health care provider approves. Diet pills can make heart problemsworse. Keep all follow-up visits as told by your health care provider. This is important. Contact a health care provider if you: Notice a change in the rate, rhythm, or strength of your heartbeat. Are taking a blood thinner and you notice more bruising. Tire more easily when you exercise or do heavy work. Have a sudden change in weight. Get help right away if you have: Chest pain, abdominal pain, sweating, or weakness. Trouble breathing. Side effects of blood thinners, such as blood in your vomit, stool, or urine, or bleeding that cannot stop. Any symptoms of a stroke. BE FAST is an easy way to remember the main warning signs of a stroke: ?B - Balance. Signs are dizziness, sudden trouble walking, or loss of balance. ?E - Eyes. Signs are trouble seeing or a sudden change in vision. ?F - Face. Signs are sudden weakness or numbness of the face, or the face or eyelid drooping on oneside. ?A - Arms. Signs are weakness or numbness in an arm. This happens suddenly and usually on one side of the body. ?S - Speech. Signs are sudden trouble speaking, slurred speech, or trouble understanding what people say. ?T - Time. Time to call emergency services. Write down what time symptoms started. Other signs of a stroke, such as: ?A sudden, severe headache with no known cause. ?Nausea or vomiting. ?Seizure. These symptoms may represent a serious problem that is an emergency. Do not wait to see if the symptoms will go away. Get medical help right away. Call your local emergency services (911 in the [place] Do not drive yourself to the hospital. Summary Atrial fibrillation is a type of irregular or rapid heartbeat (arrhythmia). Symptoms include a feeling that your heart is beating fast or irregularly. You may be given medicines to prevent blood clots or to treat heart rate or heart rhythm problems. Get help right away if you have signs or symptoms of a stroke. Get help right away if you cannot catch your breath or have chest pain or pressure. This information is not intended to replace advice given to you by your health care provider. Make sure you discuss any questions you have with your health care provider. Document Revised: 01/22/2020 Document Reviewed: 01/22/2020 [employer] Patient Education 2022 [employer]. Follow Up Care 07/07/2023 08:56:48 With:Johan HENRIQUEZ Address: [address] [place] [address]- [phone] Business (1) When:07/10/2023 12:45:48 With:Peggy Nazario Address: [address] [place] [address]- Business (1) When:07/10/2023 12:45:46 [place] [facility] [facility]11[facility]2023 NoteTr[facility] CenterComment on above:Result Comment: Electronically Signed By: Nahid SERRATO MD\.br\Date and Time Signed: 07/07/23 12:07 [id number] Evaluation + Plan noteExtracted from: Title:APSO Note Author:Nahid SERRATO MD Date:09/05/22 73-year-old female with history of ureteral stricture with previous dilations, anxiety disorder presented with complaints of urinary hesitancy, constipation, cough and shortness of breath and was [facility] with acute paroxysmal atrial fibrillation with rapid ventricular response, acute systolic congestive heart failure, elevated troponin, urinary retention/hesitancy requiring Robles catheter placement. She was also found to have mild coronary artery disease, severe mitral regurgitation/tricuspid regurgitation. 1. Atrial fibrillation with RVR (I48.91: Unspecified atrial fibrillation) Acute new onset paroxysmal atrial fibrillation with rapid ventricular response present on admission. Fluctuating. Treated intermittently with IV Cardizem drip. Continue on Coreg, digoxin. Asbestos Pipe Supervisor debating on starting patient on amiodarone. Eliquis to start in 4 days after cardiac catheterization. Ordered: Sbsq Hospital Care/Day Moderate 35 Minutes [id number] 2. Acute systolic congestive heart failure (I50.21: Acute systolic (congestive) heart failure) Acute systolic congestive heart failure present on admission. Seen by shirt cleaner and underwent cardiac catheterization that showed mild coronary artery disease. Also shows severe mitral regurgitation and tricuspid regurgitation with ejection fraction of 30 to 35%. Continue on aspirin, Coreg, losartan and Lasix. [facility] 35 Minutes 61858 3. Severe mitral regurgitation (I34.0: Nonrheumatic mitral (valve) insufficiency) As seen on cardiac catheterization. Patient will follow-up with shirt cleaner for KRYSTINA and then valvular repair. Asbestos Pipe Supervisor also considering transferring patient to or [facility] [place]. Ordered: [facility] Moderate 35 Minutes 98023 4. Elevated troponin (R79.89: Other specified abnormal findings of blood chemistry) Secondary to type II non-ST segment elevation myocardial infarction from above and mild coronary artery disease.. Seen by shirt cleaner and underwent cardiac catheterization that showed mild coronary artery disease. Continue on aspirin, Lipitor, and Coreg. Ordered: [facility]/Day Moderate 35 Minutes 91529 5. Mild coronary artery disease (I25.10: Atherosclerotic heart disease of [place] coronary artery without angina pectoris) As seen on cardiac catheterization on 07/05/2023. Continue on Lipitor and aspirin. Ordered: [facility] Moderate 35 Minutes 64533 6. anxiety (F41.9: Anxiety disorder, unspecified) Increase Ativan to 4 times daily as needed. 7. Pleural effusion (J90: Pleural effusion, not elsewhere classified) Small pleural effusion secondary to acute systolic congestive heart failure. Continue on Lasix. 8. Urinary hesitancy (R39.11: Hesitancy of micturition) Secondary to urethral stricture and urinary retention. Seen by urologist and Robles catheter was placed. She will follow-up with urologist with Robles catheter and leg bag. 9. Other urethral stricture, female (N35.82: Other urethral stricture, female) Present on admission resulting in urinary retention and hesitancy. She is status post Robles catheter. She will follow-up with urologist as outpatient for dilation. 10. Urinary retention (R33.9: Retention of urine, unspecified) Seen by urologist. Status post Robles catheter placement. Follow-up with urologist as outpatient. 11. Constipation (K59.00: Constipation, unspecified) Resolved. Discontinue MiraLAX. 12. On deep vein thrombosis (DVT) prophylaxis (Z79.899: Other [facility] (current) drug therapy) SCDs. Eliquis to resume in 4 days. Disposition: Home soon today if heart rate is under good control with plans to follow-up with shirt cleaner and urologist as outpatient. However if heart rate is still elevated then we will call [facility] or [facility] [place] to see if we can transfer patient for valve repair/replacement. I discussed the diagnosis and plan of care with the patient at the bedside. Moderate level of MDM based on addressing above issues. This documentation was transcribed using voice recognition software. Several attempts were made to ensure accuracy. However inadvertent computerized worm packer errors may be present. Nahid Serrato. Hospitalist. Orders: bisacodyl, 10 mg = 2 tab(s), Tab-EC, Oral, Once, Stop date 07/05/23 14:00:00 EST, Routine, Start date 07/05/23 14:00:00 EST, 07/05/23 13:52:00 EST lactulose, 20 gram = 30 mL, Syrup, Oral, Once, Stop date 07/05/23 14:00:00 EST, Routine, Start date 07/05/23 14:00:00 EST, 07/05/23 13:52:00 EST lorazepam, 0.5 mg = 1 tab(s), Tab, Oral, QID PRN Anxiety, Routine, Start date 07/06/23 11:43:00 EST, 07/06/23 11:43:00 EST potassium chloride, 20 mEq = 1 tab(s), Tab-ER, Oral, Once, Stop date 07/06/23 10:00:00 EST, Routine, Start date 07/06/23 10:00:00 EST, 07/06/23 10:00:00 EST Basic Metabolic Panel Basic Metabolic Panel eGFR eGFR Extra Lav Tube Extracted from: Title:Progress/SOAP Note Author:MARTINEZ MCMAHON, Remberto Patino Date:07/06/23 1. Atrial fibrillation with RVR (I48.91: Unspecified atrial fibrillation) Patient is atrial fibrillation with controlled ventricular response. Will discontinue Cardizem drip, and continue Coreg therapy and digoxin therapy. Her heart rate is fairly well-controlled. We can titrate up her Coreg provided her blood pressure is able to handle it. Another option would be to add amiodarone therapy. She will continue her low-dose Cozaar, Coreg, and low-dose Lasix 40 mg a day. 2. Acute systolic congestive heart failure (I50.21: Acute systolic (congestive) heart failure) Patient underwent left and right heart catheterization yesterday which demonstrated moderate to severe LV dysfunction, severe mitral regurgitation, mild pulmonary hypertension. The patient will require an outpatient transesophageal echocardiogram once her medical condition has stabilized to further evaluate her mitral regurgitation and tricuspid agitation. I have informed the patient that she will most likely require mitral valve repair surgery as she has both severe mitral vegetation and tricuspid regurgitation. Patient has significant anxiety and I believe would benefit from psychiatric assistance for antianxiety medications. She has requested Valium as Ativan does not appear to work as well for her. If the patient's heart rate remains less than 100 off of her Cardizem drip, then she may be discharged home and follow-up with Dr. Henriquez going forward. Another option would be to transfer the patient directly to the [facility] or [facility] [place] given her logistic challenges with getting a ride to and from those facilities so that she can have an expedited workup for her mitral and tricuspid valves. Patient has no significant coronary artery disease that requires further evaluation at this time. 3. Severe mitral regurgitation (I34.0: Nonrheumatic mitral (valve) insufficiency) 4. Elevated troponin (R79.89: Other specified abnormal findings of blood chemistry) 5. Mild coronary artery disease (I25.10: Atherosclerotic heart disease of [place] coronary artery without angina pectoris) 6. Pleural effusion (J90: Pleural effusion, not elsewhere classified) 7. Urinary hesitancy (R39.11: Hesitancy of micturition) 8. Other urethral stricture, female (N35.82: Other urethral stricture, female) 9. Urinary retention (R33.9: Retention of urine, unspecified) 10. Constipation (K59.00: Constipation, unspecified) 11. On deep vein thrombosis (DVT) prophylaxis (Z79.899: Other m[facility] (current) drug therapy) Orders: acetaminophen, 650 mg = 2 tab(s), Tab, Oral, q6hr PRN Pain 1-3 for 24 hour(s), Stop date 07/06/23 8:47:00 EST, Routine, Start date 07/05/23 8:48:00 EST, Maximum dose of acetaminophen is 4000 mg from all sources in 24 hours. acetaminophen, 325 mg = 1 tab(s), Tab, Oral, q6hr PRN Pain 1-3 for 24 hour(s), Stop date 07/06/23 8:47:00 EST, Routine, Start date 07/05/23 8:48:00 EST, Maximum dose of acetaminophen is 4000 mg from all sources in 24 hours. Bedrest Circulation Check Patient Education Site Check Site Check Extracted from: Title:APSO Note Author:JAZMÍN MCMAHON, Mbanefo Date:09/04/22 73-year-old female with history of ureteral stricture with previous dilations, anxiety disorder presented with complaints of urinary hesitancy, constipation, cough and shortness of breath and was [facility] with acute paroxysmal atrial fibrillation with rapid ventricular response, acute systolic congestive heart failure, elevated troponin, urinary retention/hesitancy requiring Robles catheter placement. She was also found to have mild coronary artery disease, severe mitral regurgitation/tricuspid regurgitation. 1. Atrial fibrillation with RVR (I48.91: Unspecified atrial fibrillation) Acute new onset paroxysmal atrial fibrillation with rapid ventricular response present on admission. Rate controlled. Treated with IV Cardizem drip, digoxin. Was treated with Lovenox during this admission. Temporarily on hold after cardiac catheterization. Plan is for patient to start Eliquis in 5 days post cardiac catheterization. Continue on Coreg. Ordered: furosemide, 40 mg = 1 tab(s), Tab, Oral, Daily, Routine, Start date 07/06/23 9:00:00 EST, 07/05/23 11:13:00 EST [facility] Hospital Care/Day Moderate 35 Minutes [id number] 2. Acute systolic congestive heart failure (I50.21: Acute systolic (congestive) heart failure) Acute systolic congestive heart failure present on admission. Seen by shirt cleaner. She is status post cardiac catheterization that showed mild coronary artery disease. Also showed severe mitral regurgitation and tricuspid regurgitation.. Ejection fraction of 30 to 35%. Continue on aspirin, Coreg, losartan, Lasix. Ordered: [facility] Hospital Care/Day Moderate 35 Minutes 84633 3. Severe mitral regurgitation (I34.0: Nonrheumatic mitral (valve) insufficiency) Severe mitral regurgitation seen on cardiac catheterization. Follow-up with shirt cleaner as outpatient for KRYSTINA and then valvular repair. Ordered: [facility] Hospital Care/Day Moderate 35 Minutes 94520 4. Elevated troponin (R79.89: Other specified abnormal findings of blood chemistry) Secondary to type II non-ST segment elevation myocardial infarction from above and mild coronary artery disease.. Seen by shirt cleaner and underwent cardiac catheterization that showed mild coronary artery disease. Continue on aspirin, Lipitor, and Coreg. Ordered: furosemide, 40 mg = 1 tab(s), Tab, Oral, Daily, Routine, Start date 07/06/23 9:00:00 EST, 07/05/23 11:13:00 EST [facility] Hospital Care/Day Moderate 35 Minutes 79626 5. Mild coronary artery disease (I25.10: Atherosclerotic heart disease of [place] coronary artery without angina pectoris) As seen on cardiac catheterization on 07/06/2023. Continue on Lipitor and aspirin. Ordered: [facility] Hospital Care/Day Moderate 35 Minutes 68622 6. Pleural effusion (J90: Pleural effusion, not elsewhere classified) Small pleural effusion secondary to acute systolic congestive heart failure. Continue on Lasix. Ordered: furosemide, 40 mg = 1 tab(s), Tab, Oral, Daily, Routine, Start date 07/06/23 9:00:00 EST, 07/05/23 11:13:00 EST 7. Urinary hesitancy (R39.11: Hesitancy of micturition) Secondary to urethral stricture and urinary retention. Seen by urologist and Robles catheter was placed. She will follow-up with urologist with Robles catheter and leg bag. Ordered: furosemide, 40 mg = 1 tab(s), Tab, Oral, Daily, Routine, Start date 07/06/23 9:00:00 EST, 07/05/23 11:13:00 EST 8. Other urethral stricture, female (N35.82: Other urethral stricture, female) Present on admission resulting in urinary retention and hesitancy. She is status post Robles catheter. She will follow-up with urologist as outpatient for dilation. Ordered: furosemide, 40 mg = 1 tab(s), Tab, Oral, Daily, Routine, Start date 07/06/23 9:00:00 EST, 07/05/23 11:13:00 EST 9. Urinary retention (R33.9: Retention of urine, unspecified) Seen by urologist. Status post Robles catheter placement. Follow-up with urologist as outpatient. 10. Constipation (K59.00: Constipation, unspecified) Resolved. 11. On deep vein thrombosis (DVT) prophylaxis (Z79.899: Other oil heaterman (current) drug therapy) Lovenox. Disposition: Home in a.m. to follow-up with shirt cleaner and urologist. I discussed the diagnosis and plan of care with the patient at the bedside. Moderate level of MDM based on addressing above issues. This documentation was transcribed using voice recognition software. Several attempts were made to ensure accuracy. However inadvertent computerized worm packer errors may be present. Nahid Serrato. Hospitalist. Orders: Basic Metabolic Panel Basic Met[facility] Panel [facility] Extracted from: Title:APSO Note Author:JAZMÍN MCMAHON, Nahid Date:09/03/22 73-year-old female with history of ureteral stricture with previous dilations, anxiety disorder presented with complaints of urinary hesitancy, constipation, cough and shortness of breath and was admitted to [facility] with acute paroxysmal atrial fibrillation with rapid ventricular response, acute systolic congestive heart failure, elevated troponin, urinary retention/hesitancy requiring Robles catheter placement. 1. Atrial fibrillation with RVR, (I48.91: Unspecified atrial fibrillation)New onset a-fib Acute paroxysmal atrial fibrillation with rapid ventricular response present on admission. Cardiology consult reviewed by me. I appreciate and agreed recommendations. Treated with IV Cardizem. Echocardiogram done shows ejection fraction of 30 to 35%. Patient was started on Lovenox with plans to switch to Eliquis. Patient was also started on Coreg and digoxin. Ordered: apixaban, 5 mg = 1 tab(s), Oral, BID, # 60 tab(s), Refills(s) 0, Pharmacy: [id number], 165, cm, 07/02/23 21:30:00 EST, Height/Length Dosing, 55.7, kg, 07/02/23 21:30:00 EST, Weight Dosing Echo Transthoracic Complete Sbsq Hospital Care/Day Moderate 35 Minutes 24695 2. Acute systolic congestive heart failure (I50.21: Acute systolic (congestive) heart failure) Acute systolic congestive heart failure present on admission. Cardiology is following. Ejection fraction of 30 to 35%. Cardiology is planning on cardiac catheterization for ischemic work-up in AM. Meanwhile continue on aspirin, Coreg, losartan. We will verify with shirt cleaner about Lasix. Ordered: Sbsq Hospital Care/Day Moderate 35 Minutes 09325 3. Elevated troponin (R79.89: Other specified abnormal findings of blood chemistry) Secondary to type II non-ST segment elevation myocardial infarction from above. Echocardiogram shows ejection fraction of 30 to 35%. Asbestos Pipe Supervisor following with plans for cardiac catheterization in AM. Meanwhile continue on aspirin and Coreg. Ordered: Echo Transthoracic Complete [facility] Hospital Care/Day Moderate 35 Minutes 94821 4. Pleural effusion (J90: Pleural effusion, not elsewhere classified) Small pleural effusion secondary to acute systolic congestive heart failure. Supportive care. Lasix as needed. Ordered: [facility] Hospital Care/Day Moderate 35 Minutes 44598 5. Urinary hesitancy (R39.11: Hesitancy of micturition) Secondary to urethral stricture and urinary retention. She is status post Robles catheter placement. Urology consult reviewed by me. I appreciate and agreed recommendations. Patient will discharge with Robles catheter and leg bag to follow-up with urologist as outpatient. Ordered: [facility] Hospital Care/Day Moderate 35 Minutes 38135 6. Other urethral stricture, female (N35.82: Other urethral stricture, female) Resulting in urinary retention and hesitancy. She is status post Robles catheter placement. She will follow-up with urologist as outpatient. 7. Urinary retention (R33.9: Retention of urine, unspecified) Secondary to above ureteral stricture. Status post Robles catheter placement. Follow-up with urologist as outpatient to consider alpha-oylette treatment. 8. Constipation (K59.00: Constipation, unspecified) Resolved. Ordered: lactulose, 20 gram = 30 mL, Syrup, Oral, Once, Stop date 07/03/23 12:00:00 EST, Routine, Start date 07/03/23 12:00:00 EST, 07/03/23 12:00:00 EST polyethylene glycol 3350, 17 gram = 1 EA, Powder-Recon, Oral, Daily, NOW, Start date 07/03/23 11:16:00 EST [facility] Hospital Care/Day Moderate 35 Minutes [id number] 9. On deep vein thrombosis (DVT) prophylaxis (Z79.899: Other mcc (current) drug therapy) Lovenox. Disposition: Pending cardiac catheterization in AM. I discussed the diagnosis and plan of care with the patient at the bedside. I also spoke with the patient's daughter Iván over the phone. Moderate level of MDM based on addressing above issues. This documentation was transcribed using voice recognition software. Several attempts were made to ensure accuracy. However inadvertent computerized worm packer errors may be present. Nahid Serrato. Hospitalist. Orders: enoxaparin, 60 mg = 0.6 mL, Injection, SubCutaneous, q12hr for 30 day(s), Stop date 08/02/23 22:59:00 EST, Routine, Start date 07/03/23 23:00:00 EST Cardiac Diet Extracted from: Title:Progress/SOAP Note Author:Remberto HENRIQUEZ MD Date:07/04/23 1. Atrial fibrillation with RVR, (I48.91: Unspecified atrial fibrillation)New onset a-fib Patient has newly discovered atrial fibrillation of unknown duration, with rapid ventricular response requiring and low-dose Cardizem drip. She is started on Coreg 3.125 mg p.o. twice daily, and we will add digoxin 0.125 mg p.o. daily for her atrial fibrillation and LV dysfunction. She will continue losartan for afterload reduction. She is on subcu Lovenox at this time. We will discontinue her Cardizem drip, and arrange for diagnostic coronary catheterization to evaluate her LV function and coronary anatomy more thoroughly. This will take place tomorrow. In the meantime she will continue Lovenox therapy and we will add baby aspirin 81 mg p.o. daily and loaded with Plavix 300 mg x 1 now. Patient has mild pulmonary vascular redistribution on chest x-ray, but no overt pleural effusion noted. We will hold off on diuretic therapy at this time, particularly in light of her urinary retention. 2. Elevated troponin (R79.89: Other specified abnormal findings of blood chemistry) 3. Pleural effusion (J90: Pleural effusion, not elsewhere classified) 4. Urinary hesitancy (R39.11: Hesitancy of micturition) 5. Other urethral stricture, female (N35.82: Other urethral stricture, female) 6. Constipation (K59.00: Constipation, unspecified) 7. On deep vein thrombosis (DVT) prophylaxis (Z79.899: Other mcc (current) drug therapy) Urinary retention (R33.9: Retention of urine, unspecified) Extracted from: Title:Consult Note Author:Shell MCMAHON, Rya n D. Date:07/03/23 New onset A-fib RVR and card iomyopathy with systolic heart failure. Suspect may have been present for longer than patient states as she does have atrial enlargement and left-ventricular systolic dysfunction. Would recommend adding full dose anticoagulation if acceptable from urologic perspective with eventual Eliquis, and switch from Cardizem to carvedilol for atrial fibrillation. She will need to be considered for antiarrhythmic therapy and cardioversion at a later date. Eventual ischemia work-up also will be important. Diuretics and afterload reduction should be undertaken. I would add furosemide and losartan. Thank you for the consultation 1. Atrial fibrillation with RVR, (I48.91: Unspecified atrial fibrillation)New onset a-fib 2. Elevated troponin (R79.89: Other specified abnormal findings of blood chemistry) 3. Pleural effusion (J90: Pleural effusion, not elsewhere classified) 4. Urinary hesitancy (R39.11: Hesitancy of micturition) 5. Other urethral stricture, female (N35.82: Other urethral stricture, female) 6. Constipation (K59.00: Constipation, unspecified) 7. On deep vein thrombosis (DVT) prophylaxis (Z79.899: Other oil heaterman (current) drug therapy) Urinary retention (R33.9: Retention of urine, unspecified) Extracted from: Title:Urology Consult and H&P 2 Author:DYLAN MCMAHON, Cody Dumont Date:07/03/23 Impression and Plan Diagnosis Atrial fibrillation with RVR (VVR01-LW I48.91, Discharge, Medical). Constipation (THG84-LJ K59.00, Discharge, Medical). Other urethral stricture, female (USR15-QV N35.82, Discharge, Medical). Urinary retention (RAJ46-ON R33.9, Working, Medical). Course: Worsening, Overall this patient of Dr. Brooks who has had intermittent urethral dilatation procedures presented today with urinary retention which seems out of proportion to the him volume documented. Unsure if the documented residual volume is accurate or not. According to the patient it is not. She had significant relief upon placement of the Robles catheter. Etiology of this retention can be a return of her urethral stenosis although she was dilated back in May of this year. The other possibility is that the urinary retention was exacerbated by concomitant constipation. Agree with MiraLAX and treatment of this difficulty. For now I would recommend indwelling Robles catheter to stay then she can follow- up with Dr. Brooks in the outpatient setting, most likely for Robles catheter discontinuation and a voiding trial. Certainly her treatment for her A-fib with RVR will dictate the length of stay for her hospitalization. Another possibility is perhaps to consider alpha blockers perhaps in the form of doxazosin in the outpatient setting. She can have this discussion with Dr. Brooks. Thank you consultation.. Extracted from: Title:APSO Note Author:JAZMÍN MCMAHON, Mbanefo Date:09/02/22 73-year-old female with history of urethral stricture with previous dilations, anxiety disorder presented with complaints of urinary hesitancy, constipation, some cough and shortness of breath and was admitted with acute paroxysmal atrial fibrillation with rapid ventricular response, elevated troponin, urinary retention/hesitancy status post Robles catheter placement. 1. Atrial fibrillation with RVR, (I48.91: Unspecified atrial fibrillation)New onset a-fib Acute paroxysmal atrial fibrillation with rapid ventricular response present on admission. Cardiology consult pending. Continue on IV Cardizem drip. I ordered echocardiogram. Ordered: Echo Transthoracic Complete [facility] Hospital Care/Day Moderate 35 Minutes 19583 2. Elevated troponin (R79.89: Other specified abnormal findings of blood chemistry) Secondary to type II non-ST segment elevation myocardial infarction from above. Echocardiogram ordered. Cardiology consult pending. Continue on aspirin. Ordered: [facility] Moderate 35 Minutes [id number] 3. Urinary hesitancy (R39.11: Hesitancy of micturition) Secondary to urethral stricture. Patient is status post Robles catheter placement for urinary retention. She will follow-up with urologist as outpatient. [facility]: [facility] Moderate 35 Minutes 88987 4. Constipation (K59.00: Constipation, unspecified) Started patient on MiraLAX and lactulose. Ordered: lactulose, 20 gram = 30 mL, Syrup, Oral, Once, Stop date 07/03/23 12:00:00 EST, Routine, Start date 07/03/23 12:00:00 EST, 07/03/23 12:00:00 EST polyethylene glycol 3350, 17 gram = 1 EA, Powder-Recon, Oral, Daily, Routine, Start date 07/03/23 12:00:00 EST, 07/03/23 12:00:00 EST [facility] Hospital Hospital Care/Day Moderate 35 Minutes 64691 5. Other urethral stricture, female (N35.82: Other urethral stricture, female) Resulting in urinary retention. Patient is status post Robles catheter during this admission. Gets dilation of the ureter every 6 months. Urology consult pending. 6. On deep vein thrombosis (DVT) prophylaxis (Z79.899: Other mcc (current) drug therapy) Lovenox. Disposition: Pending echocardiogram, cardiology and urology consult. I discussed the diagnosis and plan of care with the patient at the bedside. Moderate level of MDM based on addressing above issues. This documentation was transcribed using voice recognition software. Several attempts were made to ensure accuracy. However inadvertent computerized worm packer errors may be present. Nahid Serrato. Hospitalist. Orders: Cardiac Diet Extracted from: Title:Admission H & P Author:Noman PATTON DO Date:07/03/23 1. Atrial fibrillation with RVR, (I48.91: Unspecified atrial fibrillation)New onset a-fib New onset. We will continue Cardizem drip. Will consult cardiology. Currently rate controlled. 2. Elevated troponin (R79.89: Other specified abnormal findings of blood chemistry) We will cycle cardiac enzymes. Check hemoglobin A1c and fasting lipid panel. Await cardiology input. 3. Urinary hesitancy (R39.11: Hesitancy of micturition) Maintain Robels for time being. Will consult urology. 4. Constipation (K59.00: Constipation, unspecified) MiraLAX as needed 5. Other urethral stricture, female (N35.82: Other urethral stricture, female) Supportive care. Await urology input. 6. On deep vein thrombosis (DVT) prophylaxis (Z79.899: Other oil heaterman (current) drug therapy) SCD, enoxaparin Orders: acetaminophen, 650 mg = 2 tab(s), Tab, Oral, q6hr PRN Pain, Routine, Start date 07/03/23 2:52:00 EST, 07/03/23 2:52:00 EST albuterol-ipratropium, 3 mL, Soln-Inh, Inhalation, QID PRN Dyspnea for 30 day(s), Stop date 08/02/23 2:49:00 EST, Routine, Start date 07/03/23 2:50:00 EST aspirin, 81 mg = 1 tab(s), Tab-EC, Oral, Daily, NOW, Start date 07/03/23 2:52:00 EST, 07/03/23 2:52:00 EST diltiazem 100 mg [5 mg/hr] + Sodium Chloride 0.9% intravenous solution 100 mL, 100 mL, IV, 5 mL/hr, Routine, Start date 07/03/23 2:50:00 EST, 20 hour(s), Total volume (mL): 100, 5-15 mg/hr, Titrate per protocol, 55.7 kg, 1.6, m2 diphenhydrAMINE, 25 mg = 1 cap(s), Cap, Oral, q6hr PRN Itching, Routine, Start date 07/03/23 2:52:00 EST, 07/03/23 2:52:00 EST enoxaparin, 40 mg = 0.4 mL, Injection, SubCutaneous, Daily for 30 day(s), Stop date 08/02/23 8:59:00 EST, Routine, Start date 07/03/23 9:00:00 EST, 07/03/23 2:52:00 EST hydrALAZINE, 10 mg = 0.5 mL, Injection, IV Push, q6hr PRN Other (see comment), Routine, Start date 07/03/23 2:52:00 EST, 07/03/23 2:52:00 EST ibuprofen, 800 mg = 1 tab(s), Tab, Oral, TID PRN Pain, Routine, Start date 07/03/23 2:52:00 EST, 07/03/23 2:52:00 EST nitroglycerin, 0.4 mg = 1 tab(s), Tab, SubLingual, q5min PRN Chest pain for 3 dose(s), Stop date Limited # of times, Routine, Start date 07/03/23 2:52:00 EST, 07/03/23 2:52:00 EST ondansetron, 4 mg = 2 mL, Injection, IV Push, q6hr PRN Nausea, Routine, Start date 07/03/23 2:52:00 EST, 07/03/23 2:52:00 EST polyethylene glycol 3350, 17 gram = 1 EA, Powder-Recon, Oral, Daily PRN Constipation for 30 day(s), Stop date 08/02/23 2:49:00 EST, Routine, Start date 07/03/23 2:50:00 EST, 07/03/23 2:50:00 EST promethazine, 12.5 mg = 0.5 mL, Injection, IV Push, q6hr PRN Nausea, Routine, Start date 07/03/23 2:52:00 EST, 07/03/23 2:52:00 EST Sodium Chloride 0.9% intravenous solution 1,000 mL, 1,000 mL, IV, 75 mL/hr, Routine, Start date 07/03/23 2:52:00 EST, 13.3 hour(s), Total volume (mL): 1,000, 55.7 kg, 1.6, m2 Ambulate with Assistance Below the Knee Intermittent Pneumatic Compression Device Cardiac Monitoring Chest Pain, AMI Quality Measures Communication Order Consult to Cardiology Consult to Urology HgbA1c Lipid Panel Notify Provider Vital Signs Notify Provider Vital Signs NPO Diet Oxygen Protocol Place in Status Resuscitation Status - Full Saline Lock Convert From IV KATHLEEN Risk Score Troponin TSH With T4fr Reflex Urinary Catheter Insertion Vital Signs Weight Anticipated stay less than 2 midnights. Patient will be observation status. Extracted from: Title:ED Note Author:Yvette Vasquez, Layton Abrams te:07/03/23 1. Urinary hesitancy (R39.11 : Hesitancy of micturition) 2. Atrial fibrillation with RVR, (I48.91: Unspecified atrial fibrillation)New onset a-fib 4. Elevated troponin (R79.89: Other specified abnormal findings of blood chemistry) Orders: diltiazem, 15 mg = 3 mL, Soln-IV, IV Push, Once, Stop date 07/02/23 23:19:00 EST, NOW, Start date 07/02/23 23:19:00 EST, Infuse over 2 minute(s), 07/02/23 23:19:00 EST diltiazem 100 mg [5 mg/hr] + Sodium Chloride 0.9% intravenous solution 100 mL, 100 mL, IV, 5 mL/hr, STAT, Start date 07/02/23 23:19:00 EST, 20 hour(s), Total volume (mL): 100, 5-15 mg/hr, Titrate per protocol, 55.7 kg, 1.6, m2 lorazepam, 0.5 mg = 1 tab(s), Tab, Oral, Once, Stop date 07/02/23 22:33:00 EST, STAT, Start date 07/02/23 22:33:00 EST, 07/02/23 22:33:00 EST Sodium Chloride 0.9% intravenous solution, 1,000 mL, Soln-IV, IV, Once, Stop date 07/02/23 22:57:00 EST, STAT, Start date 07/02/23 22:57:00 EST, Infuse over 61, minute(s) Automated Diff Basic Metabolic Panel CBC w/ Auto Diff ECG 12 Lead Adult ED Cardiac Monitoring eGFR Hepatic Function Panel Magnesium Level Oxygen Saturation Oxygen Therapy PT & PTT Saline Lock Insert Troponin 0 Hr. Troponin 3 Hr. Troponin 6 Hr. Troponin 9 Hr. Urinary Catheter Insertion XR Chest Single View Future Appointments Appointment Date:11/22/2023 01:00:00 PM Scheduled Provider:Micheline BROOKS MD Location:[facility] Appointment Type:URO Office Visit Future Scheduled Tests Laboratory* Basic Metabolic Panel 07/12/23 * Digoxin Level 07/12/23 [facility]11-22-2023 Evaluation + Plan noteExtracted from: Title:Procedure Note Heart & Vascular Author:LEYDA KELLER MD, Johan Patino Date:07/05/23 Ordered: aspirin, 81 mg = 1 tab(s), Tab-EC, Oral, Daily, Routine, Start date 07/04/23 9:00:00 EST, 07/04/23 8:00:00 EST clopidogrel, 300 mg = 4 tab(s), Tab, Oral, Once, Stop date 07/04/23 8:00:00 EST, Routine, Start date 07/04/23 8:00:00 EST, 07/04/23 7:59:00 EST clopidogrel, 75 mg = 1 tab(s), Tab, Oral, Daily, Routine, Start date 07/04/23 9:00:00 EST, 07/04/23 7:59:00 EST digoxin, 125 microgram = 1 tab(s), Tab, Oral, Daily, Routine, Start date 07/04/23 9:00:00 EST, 07/04/23 8:01:00 EST Sodium Chloride 0.9% intravenous solution 1,000 mL, 1,000 mL, IV, 75 mL/hr, Routine, Start date 07/05/23 6:30:00 EST, 13.3 hour(s), Total volume (mL): 1,000, 55.7 kg, 1.6, m2 Communication Order Communication Order Communication Order Communication Order Communication Order Communication Order Communication Order Communication Order Communication Order CV Cardiovascular NPO Diet Oxygen Protocol Patient Education Routine Capillary Glucose POC Saline Lock Insert Future Appointments Appointment Date:11/22/2023 01:00:00 PM Scheduled Provider:Micheline BROOKS MD Location:[facility] Appointment Type:URO Office Visit Future Scheduled Tests Laboratory* Basic Metabolic Panel 07/12/23 * Digoxin Level 07/12/23 [facility]11-22-2023 Hospital Discharge instructions Patient Education 07/05/2023 09:04:47 CV - Cardiovascular Discharge Instructions (Custom) [place], [place] CARDIOVASCULAR DISCHARGE INSTRUCTIONS Diet: Resume pre-procedure diet. Increase water intake the next 2 days to flush dye out of the body. Activity: If groin access: Limit activity today. Do not operate a vehicle, machinery or power tools. NO LIFTING OVER 10 POUNDS (a gallon of milk weighs 8 pounds) for 3 days. Limit climbing stairs, bending, squatting and stooping for 3 days. May resume driving in 24 hours. No sexual activity for 1 week. Let pain/discomfort guide your activity. If you are having pain, stop. Return to the Emergency Room if you have trouble breathing, walking or nausea and vomiting. Medications: Resume pre-procedure medication, unless otherwise directed. Hold the following medications for 48 hours post procedure: Actoplus MetGlucophageGlucophage XR GlucovanceAvandametFortamet Btj-eabujtageIlgyjhNjrz-xinepvicx GlumetzaJanumetMetaglip RiometGlycomet *Minimal pain, soreness and/or discomfort is expected. *You may take OTC non-steroidal anti-inflammatory to manage discomfort, unless contraindicated. If pain is not controlled with the above medications, contact your physician. Site Care: Do not remove dressing for 24 hours unless it becomes saturated, then replace. Keep site clean and dry; inspect site daily. Do not use any lotions, powders, or ointments at the groin or wrist site for 1 week. May shower 24 hours after the procedure. Clean site with soap and water. Pat dry and apply band aid. No tub baths, swimming or hot tubs for 3 days Post Procedure: Soreness and tenderness to the site can last up to one week. Bruising may occur to site. A responsible adult should be with you for the first 24 hours after you arrive home. Keep follow-up appointment. No smoking for 24 hours as it increases the risk of developing blood clots. If you are interested in smoking cessation, contact [facility] at [phone], ext. [phone]. In the event you are unable to reach your physician, please call [facility] at [phone] and the coating machine operator will assist you. Seek Immediate Medical Care for: Bleeding: Apply continuous pressure to the site and Call 911. Should the arm or leg become cold, numb, blue or white call your physician immediately. Signs of infection are redness, warmth, swelling, increased tenderness, colored drainage, fever or chills Chest pain Follow Up Care 07/02/2023 21:18:33 With:Johan HENRIQUEZ Address: [address] [place] [phone] Business (1) When:2 weeks Comments:Call for followup appointment With:Peggy Nazario Address: [address] [place] [phone] Business (1) When:07/10/2023 13:00:00 With:Micheline BROOKS Address: [facility] [address] [place] [address] Business (1) When: Unknown Comments:Call for followup appointment re: the indwelling Robles catheter. [facility]11-20-2023 [facility] CenterComment on above:Result Comment: Electronically Signed By: Noman PATTON DO\Date and Time Signed: 07/03/23 02:59 [id number] Hospital Discharge instructions Patient Education 07/01/2023 00:37:46 Abdominal Pain, Adult, Nwts-jy-Kwlb Abdominal Pain, Adult Many things can cause belly (abdominal) pain. Most times, belly pain is not dangerous. Many cases of belly pain can be watched and treated at home. Sometimes, though, belly pain is serious. Your doctor will try to find the cause of your belly pain. Follow these instructions at home: Medicines Take hyxd-zgr-gigxiqo and prescription medicines only as told by your doctor. Do not take medicines that help you poop (laxatives) unless told by your doctor. General instructions Watch your belly pain for any changes. Drink enough fluid to keep your pee (urine) pale yellow. Keep all follow-up visits as told by your doctor. This is important. Contact a doctor if: Your belly pain changes or gets worse. You are not hungry, or you lose weight without trying. You are having trouble pooping (constipated) or have watery poop (diarrhea) for more than 2 3 days. You have pain when you pee or poop. Your belly pain wakes you up at night. Your pain gets worse with meals, after eating, or with certain foods. You are vomiting and cannot keep anything down. You have a fever. You have blood in your pee. Get help right away if: Your pain does not go away as soon as your doctor says it should. You cannot stop vomiting. Your pain is only in areas of your belly, such as the right side or the left lower part of the belly. You have bloody or black poop, or poop that looks like tar. You have very bad pain, cramping, or bloating in your belly. You have signs of not having enough fluid or water in your body (dehydration), such as: ?Dark pee, very little pee, or no pee. ?Cracked lips. ?Dry mouth. ?Sunken eyes. ?Sleepiness. ?Weakness. You have trouble breathing or chest pain. Summary Many cases of belly pain can be watched and treated at home. Watch your belly pain for any changes. Take amzw-pgg-qrugklt and prescription medicines only as told by your doctor. Contact a doctor if your belly pain changes or gets worse. Get help right away if you have very bad pain, cramping, or bloating in your belly. This information is not intended to replace advice given to you by your health care provider. Make sure you discuss any questions you have with your health care provider. Document Revised: 12/09/2019 Document Reviewed: 12/09/2019 [employer] Patient Education 2022 [employer]. Follow Up Care 06/30/2023 18:51:38 With:Peggy Nazario Address: [address] [place] [address] [place] [address] Business (1) When:07/04/2023 Comments:You can use the Bentyl, Zofran every 6 hours as needed for pain and nausea. Please follow-up with your primary care doctor next 2 to 3 days for further evaluation management. Please return to the ED for any new or worsening symptoms. [facility]11-17-2023 Evaluation + Plan noteExtracted from: Title:ED Note Author:Koby Masterson DO Date :06/30/23 Abdominal pain, acute (R10.9 : Unspecified abdominal pain) Orders: dicyclomine, 20 mg = 2 mL, Injection, IntraMuscular, Once, Stop date 06/30/23 20:58:00 EST, STAT, Start date 06/30/23 20:58:00 EST, 06/30/23 20:58:00 EST dicyclomine, 10 mg = 1 cap(s), Oral, QID, X 7 day(s), # 14 cap(s), Refills(s) 0, Pharmacy: [id number], 165, cm, 06/30/23 19:37:00 EST, Height/Length Dosing, 55.7, kg, 06/30/23 19:37:00 EST, Weight Dosing lorazepam, 1 mg = 1 tab(s), Tab, Oral, Once, Stop date 06/30/23 21:52:00 EST, STAT, Start date 06/30/23 21:52:00 EST, 06/30/23 21:52:00 EST ondansetron, 4 mg = 1 tab(s), Tab-Dis, Oral, Once, Stop date 06/30/23 22:35:00 EST, STAT, Start date 06/30/23 22:35:00 EST, 06/30/23 22:35:00 EST ondansetron, 4 mg = 1 tab(s), Oral, q8hr, # 12 tab(s), Refills(s) 0, Pharmacy: [facility] #[id number], 165, cm, 06/30/23 19:37:00 EST, Height/Length Dosing, 55.7, kg, 06/30/23 19:37:00 EST, Weight Dosing Automated Diff Basic Metabolic Panel CBC w/ Auto Diff CT Abdomen/Pelvis w/o Contrast eGFR Extra Blue Tube Hepatic Function Panel Lipase Level UA With Cult Reflex Future Appointments Appointment Date:11/22/2023 01:00:00 PM Scheduled Provider:Micheline BROOKS MD Location:[facility] Appointment Type:URO Office Visit [facility]10-10-2023 Note [id number] Hospital Discharge instructions Patient Education 04/26/2023 16:09:37 Atrophic Vaginitis Atrophic Vaginitis Atrophic vaginitis is a condition in which the tissues that line the vagina become dry and thin. This condition is most common in women who have stopped having regular menstrual periods (are in menopause). This usually starts when a woman is 45 to 55 years old. That is the time when a woman's estrogen levels begin to decrease. Estrogen is a female hormone. It helps to keep the tissues of the vagina moist. It stimulates the vagina to produce a clear fluid that lubricates the vagina for sex. This fluid also protects the vagina from infection. Lack of estrogen can cause the lining of the vagina to get thinner and dryer. Thevagina may also shrink in size. It may become less elastic. Atrophic vaginitis tends to get worse over time as a woman's estrogen level drops. What are the causes? This condition is caused by the normal drop in estrogen that happens around the time of menopause. What increases the risk? Certain conditions or situations may lower a woman's estrogen level, leading to a higher risk for atrophic vaginitis. You are more likely to develop this condition if: You are taking medicines that block estrogen. You have had your ovaries removed. You are being treated for cancer with radiation or medicines (chemotherapy). You have given or are . You are older than age 50. You smoke. What are the signs or symptoms? Symptoms of this condition include: Pain, soreness, a feeling of pressure, or bleeding during sex (dyspareunia). Vaginal burning, irritation, or itching. Pain or bleeding when a speculum is used in a vaginal exam. Having burning pain while urinating. Vaginal discharge. In some cases, there are no symptoms. How is this diagnosed? This condition is diagnosed based on your medical history and a physical exam. This will include a pelvic exam that checks the vaginal tissues. Though rare, you may also have other tests, including: A urine test. A test that checks the acid balance in your vagina (acid balance test). How is this treated? Treatment for this condition depends on how severe your symptoms are. Treatment may include: Using an ixzl-pgg-topdcdn vaginal lubricant before sex. Using a long-acting vaginal moisturizer. Using low-dose estrogen for moderate to severe symptoms that do not respond to other treatments. Options include creams, tablets, and inserts (vaginal rings). Before you use a vaginal estrogen, tell your health care provider if you have a history of: ?Breast cancer. ?Endometrial cancer. ?Blood clots. If you are not sexually active and your symptoms are very mild, you may not need treatment. Follow these instructions at home: Medicines Take ofeq-svb-eyckhdw and prescription medicines only as told by your health care provider. Do not use herbal or alternative medicines unless your health care provider says that you can. Use egtf-apb-mkmsqzl creams, lubricants, or moisturizers for dryness only as told by your health care provider. General instructions If your atrophic vaginitis is caused by menopause, discuss all of your menopause symptoms and treatment options with your health care provider. Do not douche. Do not use products that can make your vagina dry. These include: ?Scented feminine sprays. ?Scented tampons. ?Scented soaps. Vaginal sex can help to improve blood flow and elasticity of vaginal tissue. If you choose to have sex and it hurts, try using a water-soluble lubricant or moisturizer right before having sex. Contact a health care provider if: Your discharge looks different than normal. Your vagina has an unusual smell. You have new symptoms. Your symptoms do not improve with treatment. Your symptoms get worse. Summary Atrophic vaginitis is a condition in which the tissues that line the vagina become dry and thin. Itis most common in women who have stopped having regular menstrual periods (are in menopause). Treatment options include using vaginal lubricants and low-dose vaginal estrogen. Contact a health care provider if your vagina has an unusual smell, or if your symptoms get worse or do not improve after treatment. This information is not intended to replace advice given to you by your health care provider. Make sure you discuss any questions you have with your health care provider. Document Revised: 01/28/2021 Document Reviewed: 01/28/2021 [employer] Patient Education 2022 [employer]. Follow Up Care 10/25/2022 10:34:06 With:CECILIA MCMAHON, Micheline Morgan, URL Address: [facility] [address] [place] [address]- When: Unknown [facility] Shira 08-22-2023 Hospital Discharge instructions Patient Education 04/04/2023 16:25:22 Abdominal Pain, Adult Abdominal Pain, Adult Pain in the abdomen (abdominal pain) can be caused by many things. Often, abdominal pain is not serious and it gets better with no treatment or by being treated at home. However, sometimes abdominal pain is serious. Your health care provider will ask questions about your medical history and do a physical exam to try to determine the cause of your abdominal pain. Follow these instructions at home: Medicines Take dnsl-lqj-fjolfiw and prescription medicines only as told by your health care provider. Do not take a laxative unless told by your health care provider. General instructions Watch your condition for any changes. Drink enough fluid to keep your urine pale yellow. Keep all follow-up visits as told by your health care provider. This is important. Contact a health care provider if: Your abdominal pain changes or gets worse. You are not hungry or you lose weight without trying. You are constipated or have diarrhea for more than 2 3 days. You have pain when you urinate or have a bowel movement. Your abdominal pain wakes you up at night. Your pain gets worse with meals, after eating, or with certain foods. You are vomiting and cannot keep anything down. You have a fever. You have blood in your urine. Get help right away if: Your pain does not go away as soon as your health care provider told you to expect. You cannot stop vomiting. Your pain is only in areas of the abdomen, such as the right side or the left lower portion of the abdomen. Pain on the right side could be caused by appendicitis. You have bloody or black stools, or stools that look like tar. You have severe pain, cramping, or bloating in your abdomen. You have signs of dehydration, such as: ?Dark urine, very little urine, or no urine. ?Cracked lips. ?Dry mouth. ?Sunken eyes. ?Sleepiness. ?Weakness. You have trouble breathing or chest pain. Summary Often, abdominal pain is not serious and it gets better with no treatment or by being treated at home. However, sometimes abdominal pain is serious. Watch your condition for any changes. Take isin-apb-cssiwzf and prescription medicines only as told by your health care provider. Contact a health care provider if your abdominal pain changes or gets worse. Get help right away if you have severe pain, cramping, or bloating in your abdomen. This information is not intended to replace advice given to you by your health care provider. Make sure you discuss any questions you have with your health care provider. Document Revised: 09/18/2020 Document Reviewed: 12/09/2019 [employer] Patient Education 2022 [employer]. Follow Up Care 04/04/2023 13:51:29 With:Peggy Nazario Address: [address] [place], [place] [id number] [facility] (1) When:04/07/2023 16:25:09 Comments:Call the office of your primary care doctor to arrange for follow-up within the above-stated timeframe. Follow-up with your primary care doctor about this ED visit. You should review your labs, imaging, and diagnoses from this ED visit with your primary care physician. If you were prescribed medications you should discuss possible side-effects and drug interactions with your pharmacist. Call 911 or go to the nearest Emergency Department if you develop any new or worsening symptoms. [facility]06-18-2023 Hospital Discharge instructions Patient Education 01/28/2023 23:28:19 RICE Therapy for Routine Care of Injuries, Rmis-io-Wpii RICE Therapy for Routine Care of Injuries Many injuries can be cared for with rest, ice, compression, and elevation (RICE therapy). This includes: Resting the injured body part. Putting ice on the injury. Putting pressure (compression) on the injury. Raising the injured part (elevation). Using RICE therapy can help to lessen pain and swelling. Supplies needed: Ice. Plastic bag. Towel. Elastic bandage. Pillow or pillows to raise your injured body part. How to care for your injury with RICE therapy Rest Try to rest the injured part of your body. You can go back to your normal activities when your doctor says it is okay to do them and when you can do them without pain. If you rest the injury too much, it may not heal as well. Some injuries heal better with early movement instead of resting for too long. Ask your doctor if you should do exercises to help your injuryget better. Ice If told, put ice on the injured area. To do this: ?Put ice in a plastic bag. ?Place a towel between your skin and the bag. ?Leave the ice on for 20 minutes, 2 3 times a day. ?Take off the ice if your skin turns bright red. This is very important. If you cannot feel pain, heat, or cold, you have a greater risk of damage to the area. Do not put ice on your bare skin. Use ice for as many days as your doctor tells you to use it. Compression Put pressure on the injured area. This can be done with an elastic bandage. If this type of bandagehas been put on your injury: Follow instructions on the package the bandage came in about how to use it. Do not wrap the bandage too tightly. ?Wrap the bandage more loosely if part of your body beyond the bandage is blue, swollen, cold, painful, or loses feeling. Take off the bandage and put it on again every 3 4 hours or as told by your doctor. See your doctor if the bandage seems to make your problems worse. Elevation Raise the injured area above the level of your heart while you are sitting or lying down. Follow these instructions at home: If your symptoms get worse or last a long time, make a follow-up appointment with your doctor. You may need to have imaging tests, such as X-rays or an MRI. If you have imaging tests, ask how to get your results when they are ready. Return to your normal activities when your doctor says that it is safe. Keep all follow-up visits. Contact a doctor if: You keep having pain and swelling. Your symptoms get worse. Get help right away if: You have sudden, very bad pain at your injury or lower than your injury. You have redness or more swelling around your injury. You have tingling or numbness at your injury or lower than your injury, and it does not go away when you take off the bandage. Summary Many injuries can be cared for using rest, ice, compression, and elevation (RICE therapy). You can go back to your normal activities when your doctor says it is okay and when you can do themwithout pain. Put ice on the injured area as told by your doctor. Get help if your symptoms get worse or if you keep having pain and swelling. This information is not intended to replace advice given to you by your health care provider. Make sure you discuss any questions you have with your health care provider. Document Revised: 05/20/2021 Document Reviewed: 05/20/2021 [employer] Patient Education 2022 [employer] 01/28/2023 23:28:19 Hand Contusion Hand Contusion A hand contusion is a deep bruise to the hand. Contusions are the result of a blunt injury to tissues and muscle fibers under the skin. The injury causes bleeding under the skin. The skin overlying the contusion may turn blue, purple, or yellow. Minor injuries may cause a painless contusion, but more severe injuries may cause contusions that stay painful and swollen for a few weeks. What are the causes? This condition is usually caused by a hard hit or direct force to your hand, such as having a heavyobject fall on your hand. What are the signs or symptoms? Symptoms of this condition include: A swollen hand. Pain and tenderness in your hand. Discoloration of your hand. The area may have redness and then turn blue, purple, or yellow. How is this diagnosed? This condition is diagnosed based on: A physical exam. Your medical history. Imaging studies, such as: ?An X-ray. This may be needed to check for other injuries, such as broken bones (fractures). ?A CT scan or an MRI. This may be done if your health care provider thinks you have torn or injuredligaments. How is this treated? This condition may be treated with: Rest, ice, pressure (compression), and raising (elevating) the injured area. This is often called RICE therapy. An elastic wrap to support your hand. Kvcg-ajv-fxahfcv medicines to control pain. Follow these instructions at home: RICE therapy Rest the injured area. If directed, put ice on the injured area. ?Put ice in a plastic bag. ?Place a towel between your skin and the bag. ?Leave the ice on for 20 minutes, 2 3 times a day. If directed, apply light compression to the injured area using an elastic wrap. ?Make sure the wrap is not too tight. ?If your fingers become numb or turn cold or blue, take the wrap off and reapply it more loosely. ?Remove and reapply the wrap as told by your health care provider. Raise (elevate) the injured area above the level of your heart while you are sitting or lying down. General instructions Take skun-jjh-kioefgm and prescription medicines only as told by your health care provider. Protect your hand from getting injured further. Keep all follow-up visits as told by your health care provider. This is important. Contact a health care provider if: Your symptoms do not improve after several days of treatment. You have increased redness, swelling, or pain in your hand or fingers. You have difficulty moving the injured area. Your swelling or pain is not relieved with medicines. Get help right away if: You have severe pain. Your hand or fingers become numb. Your hand or fingers turn pale, blue, or cold. You cannot move your hand or wrist. Your hand is warm to the touch. Summary A hand contusion is a deep bruise to the hand. Contusions are the result of a blunt injury to tissues and muscle fibers under the skin. This injury is treated with rest, ice, compression and elevation. This information is not intended to replace advice given to you by your health care provider. Make sure you discuss any questions you have with your health care provider. Document Revised: 11/18/2021 Document Reviewed: 11/18/2021 [employer] Patient Education 2022 [employer]. Follow Up Care 01/28/2023 21:23:51 With:Peggy Nazario Address: [address] [place] [phone] Business (1) When:01/31/2023 Comments:Follow-up with your primary care provider in 3 to 5 days. If symptoms worsen, do not improve, or new symptoms arise please report back to emergency department for further evaluation. [facility]06-17-2023 Evaluation + Plan noteExtracted from: Title:ED Note Author:Med Medeiros PA-C te:01/28/23 Contusion of left hand (S60. 222A: Contusion of left hand, initial encounter) Orders: XR Hand 3+ Views Left Future Appointments Appointment Date:04/26/2023 03:15:00 PM Scheduled Provider:Micheline BROOKS MD Location:[facility] Appointment Type:URO Office Visit [facility]03-14-2023 Note [id number]:127[facility] 10-25-2022 Hospital Discharge instructions Patient Education 10/25/2022 10:27:36 EU - Cystoscopy with Urethral Dilation Discharge Instructions (CUSTOM) Cystoscopy with Urethral Dilation Voiding after the procedure: there may be some pain, urethral bleeding, burning, urgency, frequencyand blood tinged urine following the procedure. These symptoms usually resolve within 2-5 days. Drink the amount of fluid it takes to keep the urine pink to yellow or clear in color. Drinking enough water and fluids will help to ease any discomfort after your procedure. If you are having problems that seem out of the ordinary, please call. If unable to contact your physician and you feel it is an emergency, go to the nearest emergency room or call 911 Diet you may resume your normal diet. Activity you may resume your normal activities Call if you have a fever over 100 degrees Follow Up Care 10/19/2022 08:39:11 With:Micheline BROOKS Address: [facility] [address] , [place] [address]- Business (1) When:04/27/2023 10:27:19 [facility]07-21-2022 Hospital Discharge instructions Patient Education 03/03/2022 10:35:19 Urethral Stricture Urethral Stricture Urethral stricture is narrowing of the tube (urethra) that carries urine from the bladder out of the body. The urethra can become narrow due to scar tissue from an injury or infection. This can make it difficult to pass urine. In women, the urethra opens above the vaginal opening. In men, the urethra opens at the tip of the penis, and the urethra is much longer than it is in women. Because of the length of the male urethra, urethral stricture is much more common in men. This condition is treated with surgery. What are the causes? In both men and women, common causes of urethral stricture include: Urinary tract infection (UTI). Sexually transmitted infection (STI). Use of a tube placed into the urethra to drain urine from the bladder (urinary catheter). Urinary tract surgery. In men, common causes of urethral stricture include: A severe injury to the pelvis. Prostate surgery. Injury to the penis. In many cases, the cause of urethral stricture is not known. What increases the risk? You are more likely to develop this condition if you: Are male. Men who have had prostate surgery are at risk of developing this condition. Use a urinary catheter. Have had urinary tract surgery. What are the signs or symptoms? The main symptom of this condition is difficulty passing urine. This may cause decreased urine flow, dribbling, or spraying of urine. Other symptom of this condition may include: Frequent UTIs. Blood in the urine. Pain when urinating. Swelling of the penis in men. Inability to pass urine (urinary obstruction). How is this diagnosed? This condition may be diagnosed based on: Your medical history and a physical exam. Urine tests to check for infection or bleeding. X-rays. Ultrasound. Retrograde urethrogram. This is a type of test in which dye is injected into the urethra and then an X-ray is taken. Urethroscopy. This is when a thin tube with a light and camera on the end (urethroscope) is used tolook at the urethra. How is this treated? This condition is treated with surgery. The type of surgery that you have depends on the severity of your condition. You may have: Urethral dilation. In this procedure, the narrow part of the urethra is stretched open (dilated) with dilating instruments or a small balloon. Urethrotomy. In this procedure, a urethroscope is placed into the urethra, and the narrow part of the urethra is cut open with a surgical blade inserted through the urethroscope. Open surgery. In this procedure, an incision is made in the urethra, the narrow part is removed, and the urethra is reconstructed. Follow these instructions at home: Take syyn-gkc-wjvznjy and prescription medicines only as told by your health care provider. If you were prescribed an antibiotic medicine, take it as told by your health care provider. Do notstop taking the antibiotic even if you start to feel better. Drink enough fluid to keep your urine pale yellow. Keep all follow-up visits as told by your health care provider. This is important. Contact a health care provider if: You have signs of a urinary tract infection, such as: ?Frequent urination or passing small amounts of urine frequently. ?Needing to urinate urgently. ?Pain or burning with urination. ?Urine that smells bad or unusual. ?Cloudy urine. ?Pain in the lower abdomen or back. ?Trouble urinating. ?Blood in the urine. ?Vomiting or being less hungry than normal. ?Diarrhea or abdominal pain. ?Vaginal discharge, if you are female. Your symptoms are getting worse instead of better. Get help right away if: You cannot pass urine. You have a fever. You have swelling, bruising, or discoloration of your genital area. This includes the penis, scrotum, and inner thighs for men, and the outer genital organs (vulva) and inner thighs for women. You develop swelling in your legs. You have difficulty breathing. Summary Urethral stricture is narrowing of the tube (urethra) that carries urine from the bladder out of the body. The urethra can become narrow due to scar tissue from an injury or infection. This condition can make it difficult to pass urine. This condition is treated with surgery. The type of surgery that you have depends on the severity of your condition. Contact a health care provider if your symptoms get worse or you have signs of a urinary tract infection. This information is not intended to replace advice given to you by your health care provider. Make sure you discuss any questions you have with your health care provider. Document Released: 08/26/2016 Document Revised: 03/13/2019 Document Reviewed: 03/13/2019 [employer] Patient Education 2020 [employer]. Follow Up Care 02/28/2022 09:40:23 With:CARMINA GARRISON PA-C, URL Address: [address] [place] [address] When: Unknown [facility] 07-05-2022 Hospital Discharge instructions Patient Education 02/15/2022 14:03:18 Contusion, Ddic-bi-Azcj Contusion A contusion is a deep bruise. This is a result of an injury that causes bleeding under the skin. Symptoms of bruising include pain, swelling, and discolored skin. The skin may turn blue, purple, or yellow. Follow these instructions at home: Managing pain, stiffness, and swelling You may use RICE. This stands for: Resting. Icing. Compression, or putting pressure. Elevating, or raising the injured area. To follow this method, do these actions: Rest the injured area. If told, put ice on the injured area. ?Put ice in a plastic bag. ?Place a towel between your skin and the bag. ?Leave the ice on for 20 minutes, 2 3 times per day. If told, put light pressure (compression) on the injured area using an elastic bandage. Make sure the bandage is not too tight. If the area tingles or becomes numb, remove it and put it back on as told by your doctor. If possible, raise (elevate) the injured area above the level of your heart while you are sitting or lying down. General instructions Take ghij-jsd-bljdpvb and prescription medicines only as told by your doctor. Keep all follow-up visits as told by your doctor. This is important. Contact a doctor if: Your symptoms do not get better after several days of treatment. Your symptoms get worse. You have trouble moving the injured area. Get help right away if: You have very bad pain. You have a loss of feeling (numbness) in a hand or foot. Your hand or foot turns pale or cold. Summary A contusion is a deep bruise. This is a result of an injury that causes bleeding under the skin. Symptoms of bruising include pain, swelling, and discolored skin. The skin may turn blue, purple, or yellow. This condition is treated with rest, ice, compression, and elevation. This is also called RICE. Youmay be given hetz-enk-xwlbuac medicines for pain. Contact a doctor if you do not feel better, or you feel worse. Get help right away if you have verybad pain, have lost feeling in a hand or foot, or the area turns pale or cold. This information is not intended to replace advice given to you by your health care provider. Make sure you discuss any questions you have with your health care provider. Document Released: 01/16/2009 Document Revised: 03/22/2019 Document Reviewed: 03/22/2019 [employer] Patient Education 2020 [employer] Follow Up Care 02/15/2022 13:08:58 With:Aravind MCMAHON, KANA Saini Address: [address] [place] [address]- When:02/18/2022 [facility]05-13-2022 Hospital Discharge instructions Patient Education 12/24/2021 18:30:08 Chemical Conjunctivitis, Adult, Fjqw-qw-Dwxf Chemical Conjunctivitis, Adult Chemical conjunctivitis is irritation and swelling (inflammation) in your eye. It is also called chemical pink eye. This condition happens when a chemical gets in your eye. The condition makes your eye red, pink, and itchy. You can get this this condition in one eye or both eyes. You cannot spread this condition to another person. Follow these instructions at home: Take or apply medicines only as told by your doctor. If you were prescribed an antibiotic medicine, take or apply it as told by your doctor. Do not stopusing the medicine even if you start to feel better. Until your eye is back to normal: ?Do not wear contacts. Wear glasses instead. ?Do not wear eye makeup. ?Do not touch or rub your eyes. Put a cool, clean washcloth (compress) on your eye for 10 20 minutes. Do this 3 4 times a day. Avoid being around the chemical or the environment that caused the irritation. Wear eye protection if you need to. Wash your hands with soap and water before you use eye drops or you put a cool washcloth on your eyes. If you cannot use soap and water use hand seam stay stitcher. Contact a doctor if: Your symptoms do not get better. Your symptoms get worse. You have new symptoms. Your pain gets worse. You have pus in your eye. Get help right away if: Your vision suddenly gets worse. Summary Chemical conjunctivitis is irritation and swelling (inflammation) in your eye. It is also called chemical pink eye. This condition happens when a chemical gets in your eye. Take or apply medicines only as told by your doctor. Put a cool, clean washcloth on your eye for 10 20 minutes. Do this 3 4 times each day. Until your eye is back to normal, do not wear contacts or eye makeup and do not touch or rub your eyes. This information is not intended to replace advice given to you by your health care provider. Make sure you discuss any questions you have with your health care provider. Document Released: 07/31/2006 Document Revised: 11/20/2019 Document Reviewed: 10/06/2017 [employer] Patient Education 2020 [employer] Follow Up Care 12/24/2021 17:34:06 With:Krysta Church Address: [address] [place] [address], [address] [place] [address]- [phone] Business (1) When:12/27/2021 18:21:21 With:Peggy Nazario Address: [address] [place] [phone]- Business (1) When:Within 3 Day(s) [facility] Appointment Date:03/02/2022 02:00:00 PM Scheduled Provider:Micheline BROOKS MD Location:[facility] Appointment Type:URO Office Visit Future Scheduled Tests Laboratory* COVID- ([facility] [facility]12[facility]ments Appointment Date:02/28/2022 09:30:00 AM Scheduled Provider:Yennifer Iraheta MD Location[facility] Appointment Type:Vascular New Patient (FT) Appointment Date:03/02/2022 02:00:00 PM Scheduled Provider:Micheline BROOKS MD Location:[facility] Appointment Type:URO Office Visit Future Scheduled Tests Laboratory* COVID-19 ([facility]) 08[facility]12[facility] Appointment Date:04/04/2022 10:00:00 AM Scheduled Provider:Yennifer Iraheta MD Location:[facility] Appointment Type:Vascular New Patient (FT) Future Scheduled Tests Laboratory* COVID-19 ([facility]) 08/12/21 [facility] [place] [facility] Evaluation + Plan note Future Appointments Appointment Date:07/25/2022 09:15:00 AM Scheduled Provider:[facility] Iraheta [facility] Follow Up (FT) Appointment Date:09/26/2022 02:45:00 PM Scheduled Provider:Micheline BROOKS MD Location:[facility] Appointment Type:URO Office Visit Future Scheduled Tests Laboratory* COVID-19 ([facility]) 08/12/21 Radiology* US LE Venous Duplex Insufficiency Bilat 06[facility]14/22 [facility]ments Appointment Date:07/25/2022 09:15:00 AM Scheduled Provider:Yennifer Iraheta [facility] Type:Vascular Follow Up (FT) Appointment Date:09/26/2022 02:45:00 PM Scheduled Provider:Micheline BROOKS MD Location:[facility] Appointment Type:URO Office Visit Future Scheduled Tests Laboratory* COVID-19 ([facility]) 08/12/21 [facility] App[facility]ments Appointment Date:09/26/2022 02:45:00 PM Scheduled Provider:[facility] Future Appointments Appointment Date:12/05/2022 03:00:00 PM Scheduled Provider[facility]:MA Screen () Appointment Date:04/26/2023 03:15:00 PM Scheduled Provider:[facility] Type:[facility]O Office Visit Future Scheduled Tests Radiology* MA Mamm Screen w/CAD if perf and 3D Zac 12/05/22 [facility] Future Appointments Appointment Date:04/26/2023 03:15:00 PM Scheduled Provider:[facility] Future Appointments Appointment Date:07/19/2023 03:00:00 PM Scheduled Provider:Micheline BROOKS [facility] Appointment Type:URO Office Visit Appointment Date:07/20/2023 10:30:00 AM Scheduled Provider:Johan HENRIQUEZ MD [facility]:Cardiology Inpatient Follow Up (FT) Appointment Date:11/22/2023 01:00:00 PM Scheduled Provider:Micheline BROOKS [facility] App[facility] Type:URO Office Visit Future Scheduled Tests Laboratory* Basic Metabolic Panel 07/12/23 * Digoxin Level [facility]12[facility]23 [facility] Diagnosis Anxiety Anxiety state, unspecified [facility] Diagnosis Gastroesophageal reflux disease without esophagitis Esophageal reflux [facility] Diagnosis Non-rheumatic mitral regurgitation- Primary Mitral valve disorders Chronic HFrEF (heart failure with reduced ejection fraction) (HCC) Nonrheumatic tricuspid valve regurgitation Tricuspid valve disorders, specified as nonrheumatic Non-ischemic cardiomyopathy (HCC) Other primary cardiomyopathies Persistent atrial fibrillation (HCC) Atrial fibrillation nursing home 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 Long-term (current) use of 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s History of cardioversion Personal history of surgery to heart and great vessels, presenting hazards to health Primary hypertension Unspecified essential hypertension documented in this encounter [facility] note* Diagnosis Mitral valve insufficiency, unspecified etiology- Primary Anxiety Anxiety state, unspecified Paroxysmal atrial fibrillation (CMS/HCC) Atrial fibrillation Other cardiomyopathy (CMS/HCC) Hospital discharge follow-up Other follow-up examination Other thrombophilia (D68.69) Atherosclerosis of aorta (I70.0) Atherosclerosis of aorta [facility] Diagnosis Feeling of incomplete bladder emptying- Primary Incomplete bladder emptying Stricture of female urethra, unspecified stricture type Severe protein-calorie malnutrition (HCC) Other severe protein-calorie malnutrition documented in this encounter [facility] note* Diagnosis Screening for genitourinary condition Screening for other and unspecified genitourinary condition documented in this encounter [facility] course Narrative No data available for this section [facility] Discharge instructions No data available for this section [facility] No data available for this section [facility] for referral (narrative) , Mitral Valve and Tricuspid Valve Repair. Referred by: MARTINEZ MCMAHON, Johan Patino [facility] for referral (narrative)* Outpatient Procedure (Routine) - Authorized Specialty Diagnoses / Procedures Referred By Marietta aguiar [facility] Diagnoses Non-rheumatic mitral regurgitation Persistent atrial fibrillation (HCC) Non-ischemic cardiomyopathy (HCC) Chronic HFrEF (heart failure with reduced ejection fraction) (HCC) Procedures ECG COMPLETE ECG ROUTINE ECG W/LEAST 12 LDS W/I&R Ana Rivas, DELFINO.WEAVING TEACHER [address] [place] [address] [facility] [address] [place] [address] Referral ID Status Reason Start Date Expiration Date Visits Requested Visits Authorized [id number] Authorized Auto-Generat ed Referral 11/08/2023 09/25/2024 1 1 * Transition of Care (Routine) - Ref Not Required Specialty Diagnoses / Procedures Referred By Contac t Referred To Contact Diagnoses Non-rheumatic mitral regurgitation Persistent atrial fibrillation (HCC) Non-ischemic cardiomyopathy (HCC) Chronic HFrEF (heart failure with reduced ejection fraction) (HCC) Procedures CARDIOVASCULAR MEDICINE OP FOLLOW UP APPT Ana Leary APRN.CNP [address] [id number] Referral ID Status Reason Start Date Expiration Date Visits Requested Visits Authorized [id number] Ref Not Required PCP Requested Referral 09/26/2023 09/25/2024 1 1 * Outpatient Procedure (Routine) - Authorized Specialty Diagnoses / Procedures Referred By Contac t Referred To [facility] Diagnoses Non-rheumatic mitral regurgitation Persistent atrial fibrillation (HCC) Non-ischemic cardiomyopathy (HCC) Chronic HFrEF (heart failure with reduced ejection fraction) (HCC) Procedures ECG COMPLETE ECG ROUTINE ECG W/LEAST 12 LDS W/I&R Ana Rivas APRN.WEAVING TEACHER [address] [place] [address] [facility] [address] [place] [address] Referral ID Status Reason Start Date Expiration Date Visits Requested Visits Authorized [id number] Authorized Auto-Generat ed Referral 10/25/2023 09/25/2024 1 1 * Transition of Care (Routine) - Ref Not Required Specialty Diagnoses / Procedures Referred By Contac t Referred To Contact Diagnoses Non-rheumatic mitral regurgitation Persistent atrial fibrillation (HCC) Non-ischemic cardiomyopathy (HCC) Chronic HFrEF (heart failure with reduced ejection fraction) (HCC) Procedures CARDIOVASCULAR MEDICINE OP FOLLOW UP APPT ORDER Ana Rivas APRN.CNP [address] [place] [address] Referral ID Status Reason Start Date Expiration Date Visits Requested Visits Authorized [id number] Ref Not Required PCP Requested Referral 09/26/2023 09/25/2024 1 1 * Outpatient Procedure (Routine) - Authorized Specialty Diagnoses / Procedures Referred By Contac t Referred [facility] Diagnoses Non-rheumatic mitral regurgitation Persistent atrial fibrillation (HCC) Non-ischemic cardiomyopathy (HCC) Chronic HFrEF (heart failure with reduced ejection fraction) (HCC) Procedures ECG COMPLETE ECG ROUTINE ECG W/LEAST 12 LDS W/I&R Ana Rivas APRN.CNP [address] [place] [address] [facility] [address] [place] [address] Referral ID Status Reason Start Date Expiration Date Visits Requested Visits Authorized [id number] Authorized Auto-Generat ed Referral 10/10/2023 09/25/2024 1 1 * Transition of Care (Routine) - Ref Not Required Specialty Diagnoses / Procedures Referred By Contac t Referred To Contact Diagnoses Non-rheumatic mitral regurgitation Persistent atrial fibrillation (HCC) Non-ischemic cardiomyopathy (HCC) Chronic HFrEF (heart failure with reduced ejection fraction) (HCC) Procedures CARDIOVASCULAR MEDICINE OP FOLLOW UP APPT ORDER Ana Rivas APRN.CNP [address] [place] [address] Referral ID Status Reason Start Date Expiration Date Visits Requested Visits Authorized [id number] Ref Not Required PCP Requested Referral 09/26/2023 09/25/2024 1 1 [facility] for referral (narrative)* Consultation (Routine) - Pending Review Specialty Diagnoses / Procedures Referred By [place] t Referred To Contact Cardiothoracic Surgery Diagnoses Mitral valve insufficiency, unspecified etiology Procedures AL OFFICE/OUTPATIENT NEW HIGH MDM 60 MINUTES Peggy Nazario MD [address] [place] [address] Referral ID Status Reason Start Date Expiration Date Visits Requested Visits Authorized [id number] Pending Review Specialty Services Required 09/18/2023 03/16/2024 1 1 [facility] Summary Purpose Family History No Family History Records Found No data available for this section No data available for this section No data available for this section No data available for this section No data available for this section No data available for this section No data available for this section No data available for this section No Family History Records FoundNo Family History Records Found No data available for this section No Family History Records FoundNo Family History Records Found Advance Directives No Advanced Directives Records FoundLatest Code Status on File Code Status Date Activated Date Inactivated Comments Full Code 08/24/2023 8:43 PM 08/31/2023 9:57 PM Question Answer Comments Full Code Order Discussed With: Patient Latest Code Status on File Code Status Date Activated Date Inactivated Comments Full Code 08/24/2023 8:43 PM 08/31/2023 9:57 PM Question Answer Comments Full Code Order Discussed With: Patient Additional Source Comments INFORMATION SOURCE (unrecogn ized section and content) DATE CREATED AUTHOR 08/23/2021 [facility] dical Specialist DATE CREATED AUTHOR AUTHOR'S ORGANIZ ATION 09/19/2023 [facility] dical Specialists EPIC DATE CREATED AUTHOR AUTHOR'S ORGANIZ ATION 09/22/2023 [facility] DATE CREATED AUTHOR AUTHOR'S ORGANIZ ATION 10/13/2023 [facility] DATE CREATED AUTHOR AUTHOR'S ORGANIZ ATION 10/14/2023 [facility] Care Team (unrecognized sect ion and content) Video Game Technician Relationship Specialty Start Date End Date Peggy Nazario [address] [place] [address] PCP - General Family Medicine 07/24/23 Micheline Sorto MD [address] [place] [address] Surgeon Cardiac Surg 07/24/23 Johan Henriquez MD [address] [address] Asbestos Pipe Supervisor Cardiology 07/24/23 Video Game Technician Relationship Specialty Start Date End Date Peggy Nazario MD [address] [place] [address] PCP - ACO Reach 01/05/23 Peggy Nazario MD [address] [place] [address] PCP - General Family Medicine 02/08/23 Video Game Technician Relationship Specialty Start Date End Date Peggy Nazario MD [address] [place] [address] PCP - ACO Reach 01/05/23 Peggy Nazario MD [address] [place] [address] PCP - General Family Medicine 02/08/23 Video Game Technician Relationship Specialty Start Date End Date Peggy Nazario [address] [place] [address] PCP - General Family Medicine 07/24/23 Micheline Sorto MD [address] [place] [address] Surgeon Cardiac Surg 07/24/23 Johan Henriquez MD [address] [place] [address] Asbestos Pipe Supervisor Cardiology 07/24/23 Alea Harley MD [address] [place] [address] Cardiology 07/28/23 Alea Harley MD [address] [place] [address] Primary Staff Physician Cardiology 08/23/23 Video Game Technician Relationship Specialty Start Date End Date Peggy Nazario [address] [place] [address] PCP - General Family Medicine 07/24/23 Micheline Sorto MD [address] [place] [id number] Surgeon Cardiac Surg 07/24/23 Johan Henriquez MD [address] [place] [address] Asbestos Pipe Supervisor Cardiology 07/24/23 Alea Harley MD [address] [place] [address] Cardiology 07/28/23 Alea Harley MD [address] [place] [address] Primary Staff Physician Cardiology 08/23/23 Video Game Technician Relationship Specialty Start Date End Date Peggy Nazario [address] [place] [address] PCP - General Family Medicine 07/24/23 Micheline Sorto MD [address] [place] [address] Surgeon Cardiac Surg 07/24/23 Johan Henriquez MD [address] [place] [address] Asbestos Pipe Supervisor Cardiology 07/24/23 Alea Harley MD [address] [place] [address] Cardiology 07/28/23 Alea Harley MD [address] [place] [address] Primary Staff Physician Cardiology 08/23/23 Video Game Technician Relationship Specialty Start Date End Date Peggy Nazario MD [address] [place] [address] PCP - ACO Reach 01/05/23 Peggy Nazario MD [address] [place] [address] PCP - General Family Medicine 02/08/23 Video Game Technician Relationship Specialty Start Date End Date Peggy Nazario [address] [place] [address] PCP - General Family Medicine 07/24/23 Micheline Sorto MD [address] [place] [address] Surgeon Cardiac Surg 07/24/23 Johan Henriquez MD [address] [place] [address] Asbestos Pipe Supervisor Cardiology 07/24/23 Alea Harley MD [address] [place], [place] [id number] Cardiology 07/28/23 Alea Harley MD [address] [place] [address] Primary Staff Physician Cardiology 08/23/23 Video Game Technician Relationship Specialty Start Date End Date Peggy Nazario MD [address] [place] [address] PCP - ACO Reach 01/05/23 Peggy Nazario MD [address] [place] [address] PCP - General Family Medicine 02/08/23 Video Game Technician Relationship Specialty Start Date End Date Peggy Nazario [address] [place] [address] PCP - General Family Medicine 07/24/23 Micheline Sorto MD [address] [place] [address] Surgeon Cardiac Surg 07/24/23 Johan Henriquez MD [address] [place] [address] Asbestos Pipe Supervisor Cardiology 07/24/23 Alea Harley MD [address] [place] [address] Cardiology 07/28/23 Alea Harley MD [address] [place] [address] Primary Staff Physician Cardiology 08/23/23 Video Game Technician Relationship Specialty Start Date End Date Peggy Nazario [address] [place] [address] PCP - General Family Medicine 07/24/23 Micheline Sorto MD [address] [place] [address] Surgeon Cardiac Surg 07/24/23 Johan Henriquez MD [address] [facility] [place] [address] Asbestos Pipe Supervisor Cardiology 07/24/23 Alea Harley MD [address] [place] [address] Cardiology 07/28/23 Alea Harley MD [address] [facility] [place] [address] Primary Staff Physician Cardiology 08/23/23 Source Comments (unrecognize d section and content) In the event this informatio n is protected by the Federal Confidentiality of Alcohol and Drug Abuse Patient Records regulations: The Federal rules restrict any use of the information to criminally investigate or prosecute any alcohol or drug abuse patient.[facility] the event this information is protected by the Federal Confidentiality of Alcohol and Drug Abuse Patient Records regulations: The Federal rules restrict any use of the information to criminally investigate or prosecute any alcohol or drug abuse patient.[facility] the event this information is protected by the Federal Confidentiality of Alcohol and Drug Abuse Patient Records regulations: The Federal rules restrict any use of the information to criminally investigate or prosecute any alcohol or drug abuse patient.[facility] the event this information is protected by the Federal Confidentiality of Alcohol and Drug Abuse Patient Records regulations: The Federal rules restrict any use of the information to criminally investigate or prosecute any alcohol or drug abuse patient.[facility] the event this information is protected by the Federal Confidentiality of Alcohol and Drug Abuse Patient Records regulations: The Federal rules restrict any use of the information to criminally investigate or prosecute any alcohol or drug abuse patient.[facility] the event this information is protected by the Federal Confidentiality of Alcohol and Drug Abuse Patient Records regulations: The Federal rules restrict any use of the information to criminally investigate or prosecute any alcohol or drug abuse patient.[facility] the event this information is protected by the Federal Confidentiality of Alcohol and Drug Abuse Patient Records regulations: The Federal rules restrict any use of the information to criminally investigate or prosecute any alcohol or drug abuse patient.[facility] the event this information is protected by the Federal Confidentiality of Alcohol and Drug Abuse Patient Records regulations: The Federal rules restrict any use of the information to criminally investigate or prosecute any alcohol or drug abuse patient.[facility] Reason for Visit (unrecogniz ed section and content) Reason Comments Insurance Inquiry Reason Comments Med Refill Reason Comments Medication Problem Reason Comments Follow Up Reason Comments Consult Reason Comments Results FOR RECORDS PERTAINING TO PATIENTS WHO ARE OR HAVE BEEN ENROLLED IN A CHEMICAL DEPENDENCY/SUBSTANCEABUSE PROGRAM, SOME INFORMATION MAY BE OMITTED. This clinical summary was aggregated from multiple sources. Caution should be exercised in using it in the provision of clinical care. This summary normalizes information from multiple sources, and as a consequence, information in this document may materially change the coding, format and clinical context of patient data. In addition, data may be omitted in some cases. CLINICAL DECISIONS SHOULD BE BASED ON THE PRIMARY CLINICAL RECORDS. [facility] [employer] [facility]. provides no warranty or guarantee of the accuracy or completeness of information in this document.
--- NOTE | 2023-10-15 16:47 | XR_ITS ---
The [address] [address] Patient Name: HARJIT ULLOA MRN: [id number] date: 1950 Sex: F Assigned Patient Location: ER Current Patient Location: ED.MAIN Accession/Order Number: [id number] Exam Date: 10/15/2023 17:00 Report Date: 10/15/2023 17:54 At the request of: EVENS MILLER Procedure: XR chest 1V EXAM: CHEST 1 VIEW HISTORY: cp TECHNIQUE: Chest, one view. COMPARISON: None. FINDINGS: Lungs are clear. No focal consolidation, pleural effusion, or pneumothorax. Pulmonary vasculature is within normal limits. Cardiomediastinal silhouette is upper limits of normal to borderline enlarged. XR/XR chest 1V IMPRESSION: 1. Clear lungs without acute cardiopulmonary disease. 2. Upper limits of normal to borderline enlarged heart size. Electronically authenticated by: GARTH RIGGS Date: 10/15/2023 17:54
[2023-10-15 16:57] LABS: Basophils Percent Auto 0.3 % (0.2-2.0); Eosinophils Percent Auto 0.2 % (0.9-7.0); Hematocrit 38.8 % (36.0-48.0); Hemoglobin 12.7 g/dL (12.0-16.0); Immature Granulocytes Abs Auto 0.03 10^3/uL (0.00-0.03); Immature Granulocytes Pct Auto 0.3 % (0.0-0.5); Lymphocytes Absolute Auto 1.6 10^3/uL (1.2-3.8); Lymphocytes Percent Auto 17.8 % (20.5-60.0); Mean Corpuscular HGB Conc 32.7 g/dL (29.9-35.2); Mean Corpuscular Hemoglobin 29.9 pg (26.7-34.0); Mean Corpuscular Volume 91.3 fL (81.0-99.0); Mean Platelet Volume 9.9 fL (9.5-13.5); Monocytes Absolute Auto 0.8 10^3/uL (0.3-0.8); Monocytes Percent Auto 8.1 % (1.7-12.0); Neutrophils Absolute Auto 6.8 10^3/uL (1.4-6.5); Neutrophils Percent Auto 73.3 % (43.0-75.0); Platelet Count 204 10^3/uL (150-450); Red Blood Count 4.25 10^6/uL (4.20-5.40); Red Cell Distribution Width 13.5 % (11.0-15.0); White Blood Count 9.2 10^3/uL (4.0-11.0)
--- NOTE | 2023-10-15 16:58 | ED.GENADUL1 ---
HPI - General Adult General Chief complaint: Chest Pain Stated complaint: Chest Pain Time Seen by Provider: 10/15/23 16:39 Source: patient Mode of arrival: walk-in Limitations: no limitations History of Present Illness HPI narrative: This is a 73-year-old female here complaining of palpitations. She came to our hospital, even though she lives in [place] and her family doctors in [place], because she is seeking a second opinion from a home health care coordinator that comes to this hospital. She just recently had an outpatient echocardiogram done at this hospital. She is known to have atrial fibrillation and states that she is compliant with her medications which include Eliquis. She does not have any chest pain nausea or vomiting today. But she feels that fluttering and she gets a little bit of shortness of breath and she has got extremely high anxiety level. She has been seen by the [facility] but she does not want to go to [place] anymore so that is why she is changing to the [facility]. She has been told that she may have some heart valve problems but her recent echocardiogram does not show any gross abnormality on that report. In either case she was seen shortly after arrival here she has atrial fib with RVR heart rate varied between 90 and 115. Otherwise her vital signs show her respiratory rate to be 24. Saturation is 100% her temperature is 92 to blood pressure 136/100. She does not appear an extremis but as I said quite anxious. Related Data Home Medications Medication Instructions Recorded Confirmed atorvastatin 40 mg tablet mg 10/15/23 carvedilol 3.125 mg tablet mg 10/15/23 lorazepam 0.5 mg tablet mg 10/15/23 spironolactone 25 mg tablet mg 10/15/23 Allergies Allergy/AdvReac Type Severity Reaction Status Date / Time No Known Drug Allergies Allergy Verified 10/15/23 16:43 PFSH PFS Social History Smoking status: Former smoker Exam Narrative Exam Narrative: Patient is awake alert appears in no distress talks incessantly and is highly anxious. She was reassured after evaluating her, examining her and evaluating her vital signs that she will be fine. We also have an echocardiogram report that was done at this institution on October 12 and it showed LV function to be approximately 40 to 45%. There is no valvular heart disease. She does have some inferior wall akinesis. She has dilation of the left and the right atrium. The right ventricle has normal chamber size and normal systolic function. Overall her skin is warm dry she is not clammy or diaphoretic or cyanotic. chest shows her lungs to be clear with no wheeze rales or rhonchi. Heart sounds have irregular irregularity and her EKG confirms atrial fibrillation. I do not hear a murmur. Abdomen is soft and supple with no tenderness pain or discomfort. Extremities showed no peripheral edema swelling phlebitis or evidence of cellulitis. Constitutional Vital Signs, click to edit/add: Last Vital Signs Temp 98.2 F 10/15/23 16:36 Pulse 110 H 10/15/23 16:36 Resp 25 H 10/15/23 16:36 BP 136/100 H 10/15/23 16:36 Pulse Ox 100 10/15/23 16:36 O2 Del Method Room Air 10/15/23 16:36 Course Vital Signs Vital signs: Vital Signs Temperature 98.2 F 10/15/23 16:36 Pulse Rate 110 H 10/15/23 16:36 Respiratory Rate 25 H 10/15/23 16:36 Blood Pressure 136/100 H 10/15/23 16:36 Pulse Oximetry 100 10/15/23 16:36 Oxygen Delivery Method Room Air 10/15/23 16:36 Temperature 98.2 F 10/15/23 16:36 Pulse Rate 110 H 10/15/23 16:36 Respiratory Rate 25 H 10/15/23 16:36 Blood Pressure 136/100 H 10/15/23 16:36 Pulse Oximetry 100 10/15/23 16:36 Oxygen Delivery Method Room Air 10/15/23 16:36 Medical Decision Making [facility] Narrative Medical decision making narrative: Patient we initiated IV and have given her 1 mg of Ativan. Her chest x-ray was interpreted by myself I do not see any fulminant evidence of heart failure or cardiomegaly. Her laboratory testing was essentially unremarkable. She was given an additional dose of carvedilol orally. Her EKG and monitor at this time showed substantial improvement with her heart rate now in the mid 80s to approximately 102. Her blood pressure remained stable. This patient states that she has an invasive urological procedure tomorrow morning in [place] and she cannot miss that. At this stage since she is already on Eliquis and her rate is controlled I do not believe she needs to be hospitalized at this time. She is scheduled to see one of our local home health care coordinator this week and has an appointment for that. She was encouraged to return should she have any deterioration of her breathing or any other symptoms. Her BNP is elevated but her clinical examination essentially benign. Discharge Plan Discharge Chief Complaint: Chest Pain Clinical Impression: Atrial fibrillation Patient Disposition: Home, Self-Care Time of Disposition Decision: 17:50 Prescriptions / Home Meds: No Action atorvastatin 40 mg tablet spironolactone 25 mg tablet carvedilol 3.125 mg tablet lorazepam 0.5 mg tablet Additional Instructions: Return should you have any further problems. Continue your medications that were prescribed previously and follow-up with your urologist tomorrow Referrals: PEGGY WHITLEY [Primary Care Provider] - 1 week Stand Alone Forms: Portal Instructions
[2023-10-15 17:08] LABS: INR 1.08; Prothrombin Time 11.4 sec (9.0-11.6)
[2023-10-15 17:09] LABS: Alanine Aminotransferase 54 U/L (14-59); Albumin Globulin Ratio 1.1; Albumin Level 3.6 g/dL (3.4-5.0); Alkaline Phosphatase 71 U/L (46-116); Anion Gap 14.1; Aspartate Amino Transferase 29 U/L (15-37); BUN Creatinine Ratio 24.2; Bilirubin Total 0.8 mg/dL (0.2-1.0); Calcium 8.9 mg/dL (8.5-10.1); Carbon Dioxide 27.1 mmol/L (21.0-32.0); Chloride 101 mmol/L (98-107); D Dimer <0.19 mg/L FEU (<=0.59); Estimated GFR (African America >60 (>=60); Estimated GFR (Non-African Ame 55 (>=60); Globulin 3.4 g/dL; Glucose 96 mg/dL (74-106); Potassium 4.2 mmol/L (3.5-5.1); Sodium 138 mmol/L (136-145)
[2023-10-15] MEDS: LORAZEPAM 2 MG/ML 1 ML VIAL 1 MG IV (17:14)
[2023-10-15 17:15] LABS: Troponin I High Sensitivity 11.4 pg/mL (4.0-51.3)
[2023-10-15] MEDS: CARVEDILOL 3.125 MG TABLET PO (17:28)
--- NOTE | 2023-10-15 19:43 | ECG_ITS ---
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
== END 2023-10-15 18:11 | disposition home or self-care (01) ==
PROVIDERS: Emergency Provider Emergency Medicine Emergency Medical Services; PCP Family Medicine
DX: I48.91 Unspecified atrial fibrillation (principal); Z79.01 Long term (current) use of 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s; Z79.899 Other long term (current) drug therapy; Z87.891 Personal history of nicotine dependence
CPT/HCPCS: 36415; 71045; 80053; 83880; 84484; 85025; 85378; 85610; 93005; 96374; 99285

== ENCOUNTER 2023-10-16 12:43 | Outpatient (OUT) | payer MEDICARE, BC, SELFPAY ==
--- OUTSIDE RECORDS SUMMARY | 2023-10-16 12:58 | XMS_ITS | CCD ---
Author Name Unknown Address [address] [place] [address] Organization [facility] Care Team Providers Care Fitness Plan Coordinator Name Role Phone Peggy Nazario Primary Care Physician [phone] Micheline Sorto MD Unavailable Johan Henriquez MD Unavailable [phone] Peggy Nazario Primary Care Provider [phone] Peggy Nazario MD Unavailable Peggy Nazario MD Primary Care Provider Alea Harley MD Unavailable [phone] Alea Harley MD Unavailable PEGGY NAZARIO Attending [...] HENRIQUEZ Attending Unavailable Johan HENRIQUEZ Referring Unavailable Johan HENRIQUEZ Consulting Unavailable Johan HENRIQUEZ Consulting Unavailable BROOKS, Micheline R Attending Unavailable BROOKS, Micheline R Referring Unavailable BROOKS, Micheline R Admitting Unavailable BROOKS, Micheline R Referring Unavailable BROOKS, Micheline R Admitting Unavailable BROOKS, Micheline R Attending Unavailable NazarioPeggy fernandez D Admitting Unavailable Nazario, Peggy Mcmlilan Attending Unavailable Aravind, Peggy Mcmillan Referring Unavailable Nahid SERRATO Attending Unavailable Eb Goff Consulting Unavaila ble DO Noman PATTON R Admitting Unavailabl MD Eb Salgado Consulting Unava ilable Eb Goff Consulting Unavaila ble [facility] Cardio, XXXX Consulting Unavailable ANA RIVAS Attending Unavailable NAZARIO, PEGGY DONOHUE Primary Care Unavailabl e ALEA HARLEY Referring Unavailable LE PANIAGUA Attending Unavailable AMINA PETERSEN Admitting Unavailable NAZARIO, PEGGY JAYDE Primary Care Unavailabl e ALEA HARLEY Referring Unavailable NAZARIO, PEGGY JAYDE Primary Care Unavailabl e NAZARIO, PETER JAYDE Primary Care Unavailabl e NITHYA, MICHELINE Referring Unavailable NITHYA, MICHELINE Attending Unavailable NAZARIO, [facility] JAYDE Primary Care Unavailabl e NITHYA, MICHELINE Referring Unavailable NAZARIO, PETER JAYDE Primary Care Unavailabl e NITHYA, MICHELINE Referring Unavailable EZRA GLEZM S Admitting Unavailable YECENIA GLEZ S Attending Unavailable NAZARIO, [facility] JAYDE Primary Care Unavailabl e GIANNI VILLALBA Attending Unavailable NAZARIO, [facility] JAYDE Primary Care Unavailabl e NITHYA, MICHELINE Referring Unavailable NAZARIO, PEGGY JAYDE Primary Care Unavailabl e ALEA HARLEY Attending Unavailable NITHYA, MICHELINE Referring Unavailable NAZARIO, [facility] JAYDE Primary Care Unavailabl e NITHYA, MICHELINE Referring Unavailable NAZARIO, [facility] Primary Care Unavailabl e NITHYA, MICHELINE Referring Unavailable VASAVADA, RAPAHEL P Referring Unavailable NAZARIO, PETER JAYDE Primary Care Unavailabl e VASAVADA, RAPHEAL P Attending Unavailable NAZARIO, [facility] JAYDE Primary Care Unavailabl e ALEA HARLEY Referring Unavailable Allergies Allergy Classification Reported Allergen(s) Allergy Type Date of Onset Reaction(s) Facility (20 sources) Cephalexin; Translations: [cephalexin] Drug Allergy 3 GI intolerance, Unknown [facility] (20 sources) Egg; Translations: [Eggs] Food allergy Unknown (qualifier value) [facility] (20 sources) Meperidine; Translations: [meperidine] Drug Allergy 0 Syncope (disorder), Other: See Comments [facility] (20 sources) Morphine; Translations: [morphine] Drug Allergy 3 Unknown [facility] (20 sources) Sulfonamides (Antibiotic); Translations: [sulfa drugs] Drug allergy Nausea [facility] (2 sources) Aspirin; Translations: [ASPIRIN] Drug Allergy 0 Other: See Comments [facility] (9 sources) Latex; Translations: [LATEX] Drug Intolerance 3 Rash, Hives [facility] (5 sources) Aluminum aspirin Drug Allergy 0 [facility] (5 sources) Amoxicillin Drug Allergy 3 Diarrhea [facility] (5 sources) Erythromycin Drug Allergy 3 Unknown [facility] (5 sources) Latex Propensity to adverse reactions 3 Hives, Rash [facility] (5 sources) Meperidine Drug Allergy 3 Unknown [facility] (12 sources) Sulfonamides (Antibiotic) Drug Allergy 3 GI intolerance, Intolerance [facility] (5 sources) WHEAT DEXTRIN Drug Allergy 3 [facility] (5 sources) WHEAT DEXTRIN Drug Allergy 3 [facility] (5 sources) Eggs Or Egg-Derived Products Drug Allergy 3 [facility] (8 sources) egg extract; Translations: [EGG] Drug Allergy 4 Intolerance, GI Upset [facility] (1 source) ALLERGIES NOT ON FILE; Translations: [ALLERGIES NOT ON FILE] Propensity to adverse reactions (disorder) [facility] (1 source) Meperidine; Translations: [Demerol HCl] Drug Allergy [facility] (1 source) Sulfonamides (Antibiotic); Translations: [SULFA (SULFONAMIDE ANTIBIOTICS)] Propensity to adverse reactions to drug (disorder) 3 [facility] Rep[facility] Medications Current Medications Medication Drug Class(es) Dates Sig (Normalized) Sig (Original) amoxicillin 500 mg / clavulanate 125 mg oral tablet (2 sources) Penicillin-class Antibacterial Start: 07-19-2023 End: 08-02-2023 Augmentin 500 mg-125 mg Tab 1 tab(s), Oral, q24hr for 14 day(s), 14 tab(s), Refill(s) 0, [facility], 165, cm, 07/19/23 15:21:00 EST, Height/Length Dosing, 54.4, kg, 07/19/23 15:21:00 EST, Weight Dosing Start Date: 07/19/23 Stop Date: 08/02/23 Status: Ordered apixaban 5 mg oral tablet (20 sources) Factor Xa Inhibitor Start: 07-11-2023 take 1 tablet by mouth twice daily Eliquis 5 mg oral tablet 5 mg = 1 tab(s), Oral, BID, # 60 tab(s), Refills(s) 0, [id number], 165, cm, 07/02/23 21:30:00 EST, Height/Length Dosing, 55.7, kg, 07/02/23 21:30:00 EST, Weight Dosing Start Date: 07/11/23 Status: Ordered Start: 07-11-2023 take 1 tablet by antonio twice daily Eliquis 5 mg oral tablet 5 mg = 1 tab(s), Oral, BID, # 60 tab(s), Refills(s) 0, [id number], 165, cm, 07/02/23 21:30:00 EST, Height/Length Dosing, 55.7, kg, 07/02/23 21:30:00 EST, Weight Dosing Start Date: 07/11/23 Status: Ordered Start: 07-11-2023 take 1 tablet by antonio th twice daily Eliquis 5 mg oral tablet 5 mg = 1 tab(s), Oral, BID, # 60 tab(s), Refills(s) 0, Pharmacy: [facility] #[id number], 165, cm, 07/02/23 21:30:00 EST, Height/Length Dosing, 55.7, kg, 07/02/23 21:30:00 EST, Weight Dosing Start Date: 07/11/23 Status: Ordered Start: 07-11-2023 take 1 tablet by antonoi twice daily Eliquis 5 mg oral tablet 5 mg = 1 tab(s), Oral, BID, # 60 tab(s), Refills(s) 0, [id number], 165, cm, 07/02/23 21:30:00 EST, Height/Length Dosing, [...] Daily, # 60 tab(s), Refills(s) 0, [id number], 165, cm, 07/02/23 21:30:00 EST, Height/Length Dosing, 55.7, kg, 07/02/23 21:30:00 EST, Weight Dosing Start Date: 07/05/23 Status: Ordered atorvastatin 40 mg oral tablet (20 sources) HMG-CoA Reductase Inhibitor Start: 3 End: 5 take 1 tablet by mouth at bedtime Lipitor 40 mg Tab 40 mg = 1 tab(s), Oral, Bedtime, # 60 tab(s), Refills(s) 0, [facility] #[id number], 165, cm, 07/02/23 21:30:00 EST, Height/Length Dosing, [...] day(s), # 28 tab(s), Refills(s) 0, Pharmacy: [facility], 165, cm, 10/05/23 18:07:00 EST, Height/Length [...] day(s), # 14 cap(s), Refills(s) 0, Pharmacy: [facility] #[id number], 165, cm, 06/30/23 19:37:00 EST, Height/Length Dosing, [...] Daily, # 60 tab(s), Refills(s) 0, Pharmacy: [facility] #[id number], 165, cm, 07/02/23 21:30:00 EST, Height/Length Dosing, [...] day (at bedtime), 42.5 gm, Refill(s) 6, [facility], 165.1, cm, 01/28/23 21:34:00 EDT, Height/Length Dosing, 54.5, kg, 01/28/23 21:34:00 EDT, Weight Dosing Start Date: 03/20/23 Status: Ordered Start: 03-03-2022 estradiol 0.1 mg/g vaginal cream 1 gm, Vaginal, MonFri, # 42.5 gm, Refills(s) 6, Pharmacy: [facility], 165, cm, 03/03/22 10:04:00 EDT, Height/Length Dosing, 54, kg, 03/03/22 10:04:00 EDT, Weight Dosing Start Date: 03/03/22 Status: Ordered Start: 02-26-2021 estradiol 0.1 mg/g vaginal cream 1 gm, Vaginal, MonFri, # 42.5 gm, Refills(s) 6, Pharmacy: [facility], 165, cm, 02/23/21 13:24:00 EDT, [...] MonFri, # 42.5 gm, Refills(s) 6, Pharmacy: [facility], 165, cm, 03/03/22 10:04:00 EDT, Height/Length Dosing, 54, kg, 03/03/22 10:04:00 EDT, Weight Dosing Start Date: 03/03/22 Status: Ordered Start: 02-26-2021 estradiol 0.1 mg/g vaginal cream 1 gm, Vaginal, MonFri, # 42.5 gm, Refills(s) 6, Pharmacy: [facility], 165, cm, 02/23/21 13:24:00 EDT, Height/Length Dosing, 54, kg, 02/23/21 13:24:00 EDT, Weight Dosing Start Date: 02/26/21 Status: Ordered furosemide 40 mg oral tablet (8 sources) Loop Diuretic Start: 07-05-2023 take 1 tablet by mouth once daily furosemide 40 mg Tab 40 mg = 1 tab(s), Oral, Daily, # 60 tab(s), Refills(s) 0, Pharmacy: [facility] #[id number], 165, cm, 07/02/23 21:30:00 EST, Height/Length Dosing, [...] Daily, # 60 tab(s), Refills(s) 0, Pharmacy: [facility] #[id number], 165, cm, 07/02/23 21:30:00 EST, Height/Length Dosing, [...] HFrEF (heart failure with reduced ejection fraction) ([facility]) Take 1 tablet by mouth once daily. 90 tablet 0 09/26/2023 12/25/2023 Active Comment on above: Take 1 tablet by antonio th once daily. Tobramycin (1 source) Aminoglycoside Antibacterial Start: End: take 1 drop(s) into the eye(s) four times daily tobramycin ophthalmic 0.3% solution 1 drop(s), Eye-Both, QID for 7 day(s), 5 mL, Refill(s) 0, [facility] #[id number], 165, cm, 12/24/21 17:41:00 EDT, Height/Length Dosing, 54, kg, 12/24/21 17:41:00 EDT, Weight Dosing Start Date: 12/24/21 Stop Date: 12/31/21 Status: Ordered Zofran ODT 4 mg Tab-Dis (9 sources) Start: take 1 tablet by mouth every eight hours Zofran ODT 4 mg Tab-Dis 4 mg = 1 tab(s), Oral, q8hr, # 12 tab(s), Refills(s) 0, Pharmacy: [facility] #[id number], 165, cm, 06/30/23 19:37:00 EST, Height/Length Dosing, [...] completed, # 2 tab(s), Refills(s) 0, Pharmacy: [facility] #[id number], 165, cm, 04/26/23 15:23:00 EDT, Height/Length Dosing, 54.7, kg, 04/26/23 15:23:00 EDT, Weight Dosing Start Date: 04/26/23 Status: Ordered Start: 10-14-2022 take 1 tablet by antonio once daily Cipro 500 mg Tab 500 mg = 1 tab(s), Oral, Daily, Take 1 tablet the day before the procedure and 1 tablet after the procedure, # 2 tab(s), Refills(s) 0, Pharmacy: [facility], 165, cm, 10/03/22 14:34:00 EST, Height/Length Dosing, 54.7, kg, 10/03/22 14:34:00 E... Start Date: 10/14/22 Status: Ordered Start: 03-03-2022 take 1 tablet by antonio once daily Cipro 500 mg Tab 500 mg = 1 tab(s), Oral, As Directed, Take 1 tablet day before procedure, and then 1 tablet day of procedure after procedure, # 2 tab(s), Refills(s) 0, Pharmacy: [facility], 165, cm, 03/03/22 10:04:00 EDT, [...] Comment on above: Take 2 capsules by [facility] one time only for 1 dose. [...] Date: 07/07/23 Status: Completed polyethylene glycol 3350 86705 mg powder for oral solution (15 sources) [...] Daily, # 255 gm, Refills(s) 0, Pharmacy: [facility] #[id number], 165, cm, 07/02/23 21:30:00 EST, Height/Length Dosing, [...] on above: Take 1 capsule by mo [facility] daily at bedtime. valsartan 80 mg oral [...] Coronary atherosclerosis; Translations: [Atherosclerotic heart disease of [place] coronary artery without angina pectoris] Onset: 3 [...] current use of drug therapy; Translations: [Other half-way (current) drug therapy] Onset: 3 Episodic Other aftercare (1 source) Long-term 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; Translations: [[facility] (current) use of 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s] 09-26-2023 Episodic Other [...] Facility Discharge Instructionson Discharge Instructions [id number]# 1.00TIFF [facility] ED Note-Physicianon 10-06-19 ED Note-Physician [facility] Comment on above: Result Comment: Elec tronically Signed By: Nica Knox PA-C\.br\Date and Time Signed: 10/05/23 21:57 EST\.br\Electronically Co-Signed By: Koby Masterson DO.br\Date and Time Co-Signed: 10/06/23 00:54 EST Consent for Treatmenton 09-15 Consent for Treatment [id number]#1 .00TIFF [facility] ED Clinical Summaryon 2023 ED Clinical Summary Normal [facility] ED Patient Education Noteon 10-05-2023 ED Patient Education Note Normal [facility] ED Patient Summaryon 024 ED Patient Summary Normal [facility] CNPNon 10-02-2023 CNPN Telephone (CARCMN) ELIFASYA I ([id number]) 1950 F Date Time Provider Department 10/02/23 ALEA HARLEY CARCTX During your visit today, we recorded the following information about you: Junito Mendes 10/02/2023 9:41 AM Signed October 02, 2023 Patient Contact Number: [phone] Patient last seen within the last year: [...] that she was in the ED at [facility] for stomach pain and dizziness. She states that her carvedilol down to previous dose, chart review shows carvedilol 3.125mg. I will updated Adonay Rivas and Dr Harley. Harriet Albarado, Ana Ward APRN.MICROBIOLOGY LAB ANALYST 10/06/2023 2:59 PM Signed Noted. Will address at upcoming scheduled appointment. Ana Rivas APRN.MICROBIOLOGY LAB ANALYST October 06, 2023 2:59 PM Allergies As [...] Status:Closed by JUNITO MENDES on 10/02/23 Normal [facility] Echocardiographyon Echocardiography [id number]#1 .00TIFF Normal [facility] Outside Cardiovascularon Outside Cardiovascular [id number]#1 .00TIFF Normal [facility] Outside Cardiovascular [id number] 4020 [id number]#1 .00TIFF Normal [facility] Outside Cardiovascular [id number] [id number]#1 .00TIFF Normal [facility] Outside Operativeon 09-27-19 24 Outside Operative [id number]#1 .00TIFF Normal [facility] Outside Operative [id number]#1 .00TIFF Normal [facility] Outside Radiologyon 09-27-19 24 Outside Radiology [id number]#1 .00TIFF Normal [facility] Outside Radiology [id number]#1 .00TIFF Normal [facility] CBC panel Auto (Bld)on 09-26 Erythrocyte distribution width (RBC) [Ratio] 13.2 % Normal 11.5-15.0 [facility] Comment on above: Order Comment: Speci men Type: BLOOD SPECIMENOrdering Facility: [facility] Address: [address] [place] [address] Performed By: #### 5 8410-2 ####[facility] [id number] [place] [address] [place] Hematocrit (Bld) [Volume fraction] 38.1 % Normal 36.0-46.0 [facility] Comment on above: Order Comment: Speci men Type: BLOOD SPECIMENOrdering Facility: [facility] Address: [address] [place] [address] Performed By: #### 5 8410-2 ####[facility] [id number] [place] [address] [place] Hemoglobin (Bld) [Mass/Vol] 12.2 g/dL Normal 11.5-15.5 [facility] Comment on above: Order Comment: Speci men Type: BLOOD SPECIMENOrdering Facility: [facility] Address: [address] [place] [address] Performed By: #### 5 8410-2 ####[facility] [id number] [place] [address] [place] MCH (RBC) [Entitic mass] 29.5 pg Normal 26.0-34.0 [facility] Comment on above: Order Comment: Speci men Type: BLOOD SPECIMENOrdering Facility: [facility] Address: [address] [place] [address] Performed By: #### 5 8410-2 ####[facility] [id number] [place] [address] [place] MCHC (RBC) [Mass/Vol] 32.0 g/dL Normal 30.5-36.0 [facility] Comment on above: Order Comment: Speci men Type: BLOOD SPECIMENOrdering Facility: [facility] Address: [address] [place] [address] Performed By: #### 5 8410-2 ####[facility] [id number] [place] [address] [place] MCV (RBC) [Entitic vol] 92.0 fL Normal 80.0-100.0 [facility] Comment on above: Order Comment: Speci men Type: BLOOD SPECIMENOrdering Facility: [facility] Address: [address] [place] [address] Performed By: #### 5 8410-2 ####[facility] [id number] [place] [address] [place] Nucleated RBC (Bld) [#/Vol] 10*3/uL Normal <0.01 [facility] Comment on above: Order Comment: Speci men Type: BLOOD SPECIMENOrdering Facility: [facility] Address: [address] [place] [address] Performed By: #### 5 8410-2 ####[facility] [id number] [place] [address] [place] Platelet mean volume (Bld) [Entitic vol] 10.5 fL Normal 9.0-12.7 [facility] Comment on above: Order Comment: Speci men Type: BLOOD SPECIMENOrdering Facility: [facility] Address: [address] [place] [address] Performed By: #### 5 8410-2 ####[facility] [id number] [place] [address] [place] Platelets (Bld) [#/Vol] 195 10*3/uL Normal 150-400 [facility] Comment on above: Order Comment: Speci men Type: BLOOD SPECIMENOrdering Facility: [facility] Address: [address] [place] [address] Performed By: #### 5 8410-2 ####[facility] [id number] [place] [address] [place] RBC (Bld) [#/Vol] 4.14 10*6/uL Normal 3.90-5.20 [facility] Comment on above: Order Comment: Speci men Type: BLOOD SPECIMENOrdering Facility: [facility] Address: [address] [place] [address] Performed By: #### 5 8410-2 ####[facility] LABCLIA [id number] [address] WBC (Bld) [#/Vol] 6.03 10*3/uL Normal 3.70-11.00 [facility] Comment on above: Order Comment: Speci men Type: BLOOD SPECIMENOrdering Facility: [facility] Address: [address] [place] [address] Performed By: #### 5 8410-2 ####[facility] LABCLIA [id number] [address] [place] [facility] CBC PNL BLD AUTOon 09-26 [facility] NRBC # BLD [facility]O <0.01 [facility] PLATELET # BLD AUTO 195 [facility] PMV BLD AUTO 10.5 fL 9.0 - 12.7 fL [facility] WBC # BLD AUTO 6.03 [facility] Erythrocyte distribution width (RBC) [Ratio] 13.2 % 11.5 - 15.0 % [facility] Hematocrit (Bld) [Volume fraction] 38.1 % 36.0 - 46.0 % [facility] Hemoglobin (Bld) [Mass/Vol] 12.2 g/dL 11.5 - 15.5 g/dL [facility] MCH (RBC) [Entitic mass] 29.5 pg 26.0 - 34.0 pg [facility] MCHC (RBC) [Mass/Vol] 32.0 g/dL 30.5 - 36.0 g/dL [facility] MCV (RBC) [Entitic vol] 92.0 fL 80.0 - 100.0 fL [facility] RBC (Bld) [#/Vol] 4.14 10*6/uL 3.90 - 5.2 0 m/uL [facility] Specimen Type: BLOOD SPECIMEN [facility] Address: [address], [place] [address] Original Ordering Provider: ALEA GUZMAN [facility] Richard 09-26-2023 CN Office Visit (UROLMN ) ASYA ASENCIO I ([id number]) 1950 F Date Time Provider Department 09/26/23 2:40 PM RAPHAEL GOLDSMITH During your visit today, we recorded the following information about you: Raphael Goldsmith MD 09/26/2023 4:38 PM Signed [facility] [...] notified. 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 - lisinopril (ZESTRIL) 10 mg tablet Take 0.5 tablets by mouth once daily. - carvedilol (COREG) 12.5 mg tablet Take 12.5 mg by mouth. - apixaban (ELIQUIS) 5 mg tab(s) Take 1 tablet by (more content not included)... Normal [facility] CNOV Office Visit (CARCMN ) ASYA ASENCIO I ([id number]) 1950 F Date Time Provider Department 09/26/23 9:00 AM ANA RIVAS During your visit today, we recorded the following information about you: Pulse Respiration Blood pressure Weight 72/minute 20/minute 118/57 50.8 kg Height 1.651 m Ana Rivas APRN.CNP 09/26/2023 10:41 AM Signed [facility] [place] [facility] Department of Cardiovascular Medicine SECTION OF CLINICAL CARDIOLOGY OUTPATIENT VISIT DATE September 26, 2023 OUTPATIENT VISIT TYPE ESTABLISHED PRIMARY CARE PHYSICIAN: Peggy Nazario MD [address] [place] [address] REFERRING PHYSICIAN: Dr. Alea Harley [address] [facility] [address] CHIEF COMPLAINT: Established Patient HISTORY OF PRESENT [...] better. Will review with Dr. Sorto in [facility]. He will be seeing her later today, final recommendations at that time. Interval Events since MICHAEL: Here today for routine follow up re: GDMT for HFrEF, mitral regurgitation, AF Recent local hospital admission re: allergic reaction to valsartan Evaluated by Dr. Sorto in [facility] re: candidacy for cardiac surgery. Deemed high [...] with meals. (more content not included)... Normal [facility] metabolic 2000 panelon 09-26-2023 Albumin [Mass/Vol] 4.2 g/dL Normal 3.9-4.9 [facility] Comment on above: Order Comment: Speci men Type: BLOOD SPECIMEN [facility] Address: [address] [place] [address] Performed By: #### 2 4323-8, 54379-9 #### [facility] CLIA [id number] [address] [place] [address] [place] ALP [Catalytic activity/Vol] 57 U/L Normal 34-123 [facility] Comment on above: Order Comment: Speci men Type: BLOOD SPECIMEN [facility] Address: [address] [place] [address] Performed By: #### 2 4323-8, 74929-6 #### [facility] CLIA [id number] [address] [place] [address] [place] ALT [Catalytic activity/Vol] 36 U/L Normal 7-38 [facility] Comment on above: Order Comment: Speci men Type: BLOOD SPECIMEN [facility] Address: [address] [place] [address] Performed By: #### 2 4323-8, 18145-3 #### [facility] CLIA [id number] [address] [place] [address] [place] Anion gap [Moles/Vol] 10 mmol/L Normal 9-18 [facility] Comment on above: Order Comment: Speci men Type: BLOOD SPECIMEN [facility] Address: [address] [place] [address] Performed By: #### 2 4323-8, 24416-5 #### [facility] CLIA [id number] [address] [place] [address] [place] AST [Catalytic activity/Vol] 29 U/L Normal 13-35 [facility] Comment on above: Order Comment: Speci men Type: BLOOD SPECIMEN Ordering Facility: [facility] Address: [address] [place] [address] Performed By: #### 2 4323-8, 29819-6 #### [facility] CLIA [id number] [address] [place] [address] [place] Bilirubin [Mass/Vol] 0.6 mg/dL Normal 0.2-1.3 [facility] Comment on above: Order Comment: Speci men Type: BLOOD SPECIMEN Ordering Facility: [facility] Address: [address] [place] [address] Performed By: #### 2 4323-8, 62446-0 #### [facility] CLIA [id number] [address] [place] [address] [place] Calcium [Mass/Vol] 9.6 mg/dL Normal 8.5-10.2 [facility] Comment on above: Order Comment: Speci men Type: BLOOD SPECIMEN Ordering Facility: [facility] Address: [address] [place] [address] Performed By: #### 2 4323-8, 78181-8 #### [facility] CLIA [id number] [address] [place] [address] [place] Chloride [Moles/Vol] 100 mmol/L Normal 97-105 [facility] Comment on above: Order Comment: Speci men Type: BLOOD SPECIMEN Ordering Facility: [facility] Address: [address] [place] [address] Performed By: #### 2 4323-8, 38290-6 #### [facility] CLIA [id number] [address] [place] [address] [place] CO2 [Moles/Vol] 29 mmol/L Normal 22-30 [facility] Comment on above: Order Comment: Speci men Type: BLOOD SPECIMEN Ordering Facility: [facility] Address: [address] [place] [address] Performed By: #### 2 4323-8, 36387-7 #### [facility] CLIA [id number] [address] [place] [address] [place] Creatinine [Mass/Vol] 0.82 mg/dL Normal 0.58-0.96 [facility] Comment on above: Order Comment: Nichole becerra Type: BLOOD SPECIMEN Ordering Facility: [facility] Address: [address] [place] [address] Performed By: #### 2 4323-8, 71711-6 #### [facility] CLIA [id number] [address] [place] [address] [place] Creatinine and Glomerular filtration rate.predicted panel (S/P/Bld) 75 mL/min/1.73m??? Normal >=60 [facility] Comment on above: Order Comment: Nichole becerra Type: BLOOD SPECIMEN Ordering Facility: [facility] Address: [address] [place] [address] Result Comment: Shelley mated Glomerular Filtration Rate [...] actual GFR. Performed By: #### 2 4323-8, 47860-1 #### [facility] CLIA [id number] [address] [place] [address] [place] Glucose [Mass/Vol] 129 mg/dL High 74-99 [facility] Comment on above: Order Comment: Nichole becerra Type: BLOOD SPECIMEN Ordering Facility: [facility] Address: [address] [place] [address] Result Comment: The [place] Diabetes Association (ADA) provides guidance for cutoff [...] Standards of Medical Care in Diabetes 2016, [place] [employer]. Diabetes Care. 2016.39(Suppl 1). Performed By: #### 2 4323-8, 59457-8 #### [facility] CLIA [id number] [address] [place] [address] [place] Potassium [Moles/Vol] 4.3 mmol/L Normal 3.7-5.1 [facility] Comment on above: Order Comment: Speci men Type: BLOOD SPECIMEN Ordering Facility: [facility] Address: [address] [place] [address] Performed By: #### 2 4323-8, 06414-1 #### [facility] CLIA [id number] [address] [place] [address] [place] Protein [Mass/Vol] 6.4 g/dL Normal 6.3-8.0 [facility] Comment on above: Order Comment: Speci men Type: BLOOD SPECIMEN Ordering Facility: [facility] Address: [address] [place] [address] Performed By: #### 2 4323-8, 18949-0 #### [facility] CLIA [id number] [address] [place] [address] [place] Sodium [Moles/Vol] 139 mmol/L Normal 136-144 [facility] Comment on above: Order Comment: Speci men Type: BLOOD SPECIMEN Ordering Facility: [facility] Address: [address] [place] [address] Performed By: #### 2 4323-8, 11720-0 #### [facility] CLIA [id number] [address] [place] [address] [place] Urea nitrogen [Mass/Vol] 15 mg/dL Normal 7-21 [facility] Comment on above: Order Comment: Speci men Type: BLOOD SPECIMEN Ordering Facility: [facility] Address: [address] [place] [address] Performed By: #### 2 4323-8, 02333-6 #### [facility] CLIA [id number] [address] [place] [address] [facility] [id number] 09-26-2023 ECG01 Ventricular Rate : 6 2 BPM Atrial Rate : 62 BPM P-R Interval : 112 ms QRS Duration : 96 ms Q-T Interval : 388 ms QTC Calculation(Bazett) : 393 ms Calculated P Tillar : 80 degrees Calculated R Tillar : 79 degrees Calculated T Tillar : 26 degrees NORMAL SINUS RHYTHM NORMAL ECG Confirmed by MD BERMUDEZ HEBA ([id number]) on 10/03/2023 6:33:53 PM NAME : ASYA ASENCIO PID : [id number] : 1950 Gender : Female Race : ORD : Procedure Date : Sep 26 2023 09:27:55 Edit Date : Oct 03 2023 18:33:54 Diagnosis: NORMAL SINUS RHYTHM NORMAL ECG Confirmed by MD BERMUDEZ HEBA ([id number]) on 10/03/2023 6:33:53 PM Test Reason : Location : 567 : J24NS Overread By : MD BERMUDEZ HEBA Edited By : MD BERMUDEZ HEBA Referred By : , Acquired by : , Normal [facility] ECG01 Ventricular Rate : 6 7 BPM Atrial Rate : 67 BPM P-R Interval : 114 ms QRS Duration : 96 ms Q-T Interval : 380 ms QTC Calculation(Bazett) : 401 ms Calculated P Tillar : 83 degrees Calculated R Tillar : 79 degrees Calculated T Tillar : 24 degrees SINUS RHYTHM WITH OCCASIONAL PREMATURE VENTRICULAR COMPLEXES INFERIOR T WAVE ABNORMALITY ABNORMAL ECG Confirmed by MD BERMUDEZ HEBA ([id number]) on 10/03/2023 2:34:05 PM NAME : ASYA ASENCIO PID : [id number] : 1950 Gender : Female Race : ORD : Procedure Date : Sep 26 2023 09:27:28 Edit Date : Oct 03 2023 14:34:07 Diagnosis: SINUS RHYTHM WITH OCCASIONAL PREMATURE VENTRICULAR COMPLEXES INFERIOR T WAVE ABNORMALITY ABNORMAL ECG Confirmed by MD LARA, FLORINDA ([id number]) on 10/03/2023 2:34:05 PM Test Reason : Location : 567 : J24NS Overread By : MD BERMUDEZ HEBA Edited By : MD BERMUDEZ HEBA Referred By : , Acquired by : , Normal [facility] NT-proBNP SerPl-ncon 09-26 Natriuretic peptide.B prohormone N-Terminal [Mass/Vol] 2047 pg/mL High <450 [facility] Comment on above: Order Comment: Speci men Type: BLOOD SPECIMEN Ordering Facility: [facility] Address: [address] [place] [address] Performed By: #### 2 4323-8, 75359-6 #### [facility] CLIA [id number] [address] [place] [address] [place] URINALYSIS, REFLEX MICROSCOP ICon 09-26-2023 Bacteria LM.HPF (Urine sed) [#/Area] Few Abnormal None Seen [facility] Comment on above: Order Comment: Speci men Type: BLOOD SPECIMEN Ordering Facility: [facility] Address: [address] [place] [address] Performed By: #### 2 4323-8, 86895-5 #### [facility] CLIA [id number] [facility] [place] [address] [place] Bilirubin Ql (U) Negative Normal Negative [facility] Comment on above: Order Comment: Speci men Type: BLOOD SPECIMEN Ordering Facility: [facility] Address: [address] [place] [address] Performed By: #### 2 4323-8, #### [facility] CLIA [id number] [facility] [place] [address] [place] Clarity (Unsp spec) Cloudy Abnormal Clear [facility] Comment on above: Order Comment: Speci men Type: BLOOD SPECIMEN Ordering Facility: [facility] Address: [address] [place] [address] Performed By: #### 2 432-8, #### [facility] CLIA [id number] [address] [place] [address] [place] Color (U) Yellow Normal Yellow [facility] Comment on above: Order Comment: Speci men Type: BLOOD SPECIMEN Ordering Facility: [facility] Address: [address] [place] [address] Performed By: #### 2 4323-03, #### [facility] CLIA [id number] [address] [place] [address] [place] Epithelial cells LM.HPF (Urine sed) [#/Area] Moderate Normal [facility] Comment on above: Order Comment: Speci men Type: BLOOD SPECIMEN Ordering Facility: [facility] Address: [address] [place] [address] Result Comment: Few Performed By: #### 2 4323-03, #### [facility] CLIA [id number] [address] [place] [address] [place] Glucose Test strip (U) [Mass/Vol] Negative Normal Trace, Negative [facility] Comment on above: Order Comment: Speci men Type: BLOOD SPECIMEN Ordering Facility: [facility] Address: [address] [place] [address] Performed By: #### 2 4323-03, #### [facility] CLIA [id number] [address] [place] [address] [place] Hemoglobin Ql (U) 1+ Abnormal Negative, Trace [facility] Comment on above: Order Comment: Speci men Type: BLOOD SPECIMEN Ordering Facility: [facility] Address: [address] [place] [address] Performed By: #### 2 43210-19, #### [facility] CLIA [id number] [address] [place] [id number] [place] Ketones Ql (U) Negative Normal Negative, Trace [facility] Comment on above: Order Comment: Speci men Type: BLOOD SPECIMEN Ordering Facility: [facility] Address: [address] [place] [address] Performed By: #### 2 432-8, #### [facility] CLIA [id number] [address] [place] [address] [place] Leukocyte esterase Test strip Ql (U) 500 Ghislaine/uL Abnormal Negative, 25 Ghislaine/uL [facility] Comment on above: Order Comment: Speci men Type: BLOOD SPECIMEN Ordering Facility: [facility] Address: [address] [place] [address] Performed By: #### 2 4328, #### [facility] CLIA [id number] [address] [place] [address] [place] Nitrite Ql (U) Negative Normal Negative [facility] Comment on above: Order Comment: Speci men Type: BLOOD SPECIMEN Ordering Facility: [facility] Address: [address] [place] [address] Performed By: #### 2 4328, #### [facility] CLIA [id number] [address] [place] [address] [place] pH (U) 6.0 [pH] Normal 5.0-8.0 [facility] Comment on above: Order Comment: Speci men Type: BLOOD SPECIMEN Ordering Facility: [facility] Address: [address] [place] [address] Performed By: #### 2 4323-8, #### [facility] CLIA [id number] [address] [place] [address] [place] Protein (U) [Mass/Vol] Negative Normal Trace , Negative [facility] Comment on above: Order Comment: Speci men Type: BLOOD SPECIMEN Ordering Facility: [facility] Address: [address] [place] [address] Performed By: #### 2 4322-, #### [facility] CLIA [id number] [address] [place] [address] [place] RBC LM.HPF (Urine sed) [#/Area] 3-5 /HPF Abnormal 0-3 /HPF [facility] Comment on above: Order Comment: Speci men Type: BLOOD SPECIMEN Ordering Facility: [facility] Address: [address] [place] [address] Performed By: #### 2 432-8, #### [facility] CLIA [id number] [address] [place] [address] [place] Specific gravity (U) [Rel density] 1.013 Normal 1.005-1.030 [facility] Comment on above: Order Comment: Speci men Type: BLOOD SPECIMEN Ordering Facility: [facility] Address: [address] [place] [address] Performed By: #### 2 4328, #### [facility] CLIA [id number] [address] [place] [address] [place] Urobilinogen Ql (U) Normal Normal Normal [facility] Comment on above: Order Comment: Speci men Type: BLOOD SPECIMEN Ordering Facility: [facility] Address: [address] [place] [address] Performed By: #### 2 4323-8, #### [facility] CLIA [id number] [address] [place] [address] [place] WBC LM.HPF (Urine sed) [#/Area] /[HPF] Abnormal 0-5 /HPF [facility] Comment on above: Order Comment: Speci men Type: BLOOD SPECIMEN Ordering Facility: [facility] Address: [address] [place] [address] Performed By: #### 2 4323-8, #### [facility] CLIA [id number] [address] [place] Bacteria LM.HPF (Urine sed) [#/Area] Few Abnormal None Seen /HPF [facility] Bilirubin Ql (U) Negative Negative [facility] Clarity (Unsp spec) Cloudy Abnormal Clear [facility] Color (U) Yellow Yellow [facility] Epithelial cells LM.HPF (Urine sed) [#/Area] Moderate [facility] Epithelial cells LM.HPF (Urine sed) [#/Area] Few Abnormal None Seen /HPF [facility] Glucose Test strip (U) [Mass/Vol] Negative Trace, Negative [facility] Hemoglobin Ql (U) 1+ Abnormal Negative, Trace [facility] Ketones Ql (U) Negative Negative, Trace [facility] Leukocyte esterase Test strip Ql (U) 500 Ghislaine/uL Abnormal Negative, 25 Ghislaine/uL [facility] Nitrite Ql (U) Negative Negative [facility] pH (U) 6.0 [pH] 5.0 - 8.0 [facility] Protein (U) [Mass/Vol] Negative Trace , Negative [facility] RBC LM.HPF (Urine sed) [#/Area] 3-5 /HPF Abnormal 0-3 /HPF [facility] Specific gravity (U) [Rel density] 1.013 1.005 - 1.030 [facility] Urobilinogen Ql (U) Normal Normal [facility] WBC LM.HPF (Urine sed) [#/Area] /[HPF] Abnormal 0-5 /HPF [facility] CNPNon 09-21-2023 CNPN Telephone (CARCMN) ASYA ASENCIO I ([id number]) 1950 F Date Time Provider Department 09/21/23 ALEA HARLEY CARCMN During your visit today, we recorded the following information about you: Junito Mendes 09/21/2023 3:40 PM Signed September 21, 2023 Patient Contact Number: [phone] Patient last seen within the last year: [...] on setting her up with an FACILITY SALES AND ADMIN and Dr. Harley would like to be in for the appointment. Next Monday. ROCÍO Mckeon Annette 09/22/2023 1:24 PM Signed Received call from Cardiothoracic surgery office. Patient contacted his office to discuss that she was unhappy with the medication and she would like someone to call her back to discuss. Fatou Ricci Reinforced Concrete Inspector September 22, 2023 1:23 PM Kim Greenberg RN 09/22/2023 2:04 PM Signed Called patient and she told me she cannot come on the as she does not have a car. She said that she can come on the as she has a urology appointment and her son is bringing her. She said she is going to live with her daughter in [place] for a few months and she wants [...] he wants her to see a FACILITY SALES AND ADMIN or she will have to get a [...] regurgitation [I36*12 (more content not included)... Normal [facility] BMPon 09-17-2023 Anion gap [Moles/Vol] 9 mmol/L Normal 6-16 [facility] Comment on above: Performed By: #### 2 921310, 87958309, 16957724, 7912317, 87894410 ####[facility] [address] [place] [address] BUN/Creat Ratio 24 No Units High 10-20 [facility] Comment on above: Performed By: #### 2 411748, 87944486, 48538721, 6160115, 55868709 ####[facility] [address] [place] [address] Calcium [Mass/Vol] 9.1 mg/dL Normal 8.9-11.1 [facility] Comment on above: Performed By: #### 2 969155, 21102119, 12814608, 9238893, 15167736 ####[facility] [address] [place] [address] Chloride [Moles/Vol] 105 mmol/L Normal 101-111 [facility] Comment on above: Performed By: #### 2 071688, 29777904, 60437829, 8374736, 83617946 ####[facility] [address] [place] [address] CO2 [Moles/Vol] 28 mmol/L Normal 21-31 [facility] Comment on above: Performed By: #### 2 704904, 24656822, 53970409, 9298295, 52532347 ####[facility] [address] [place] [address] Creatinine [Mass/Vol] 0.7 mg/dL Normal 0.5-1.3 [facility] Comment on above: Performed By: #### 2 105237, 67301250, 74283275, 0404871, 01305186 ####[facility] [address] [place] [address] Glucose [Mass/Vol] 83 mg/dL Normal 55-199 [facility] Comment on above: Performed By: #### 2 665517, 29085383, 62404449, 1621401, 36465639 ####[facility] [address] [place] [address] Potassium [Moles/Vol] 4.0 mmol/L Normal 3.5-5.3 [facility] Comment on above: Performed By: #### 2 380667, 71181332, 97391190, 1787487, 18477686 ####[facility] [address] [place] [address] Sodium [Moles/Vol] 138 mmol/L Normal 135-145 [facility] Comment on above: Performed By: #### 2 459120, 08022488, 10252197, 6922755, 52635278 ####[facility] [address] [place] [address] Urea nitrogen [Mass/Vol] 17 mg/dL Normal 5-21 [facility] Comment on above: Performed By: #### 2 595651, 33257890, 46308243, 0209808, 83861271 ####[facility] [address] [place] [address] CBC w/ Auto Diffon 4 Basophil Absolute 0.1 E9/L Normal 0.0-0.2 [facility] Comment on above: Performed By: #### 2 220609, 01506438, 13192124, 1374035, 16334130 ####[facility] [address] [place] [address] Basophils/100 WBC (Bld) 0.9 % Normal 0.0-2.0 [facility] Comment on above: Performed By: #### 2 088974, 64828724, 69460664, 1723779, 35452187 ####[address] [address] Eos Absolute 0.0 E9/L Normal 0.0-0.5 [facility] Comment on above: Performed By: #### 2 386993, 74122103, 36621145, 2832703, 40747715 ####[address] [address] Eosinophils/100 WBC (Bld) 0.7 % Normal 0.0-8.0 [facility] Comment on above: Performed By: #### 2 725298, 32903963, 29031955, 8270731, 96938523 ####[address] [address] Erythrocyte distribution width (RBC) [Ratio] 14.1 % Normal 10.9-14.2 [facility] Comment on above: Performed By: #### 2 790764, 26910426, 05216724, 4647952, 31120901 ####[address] [address] Hematocrit (Bld) [Volume fraction] 36.0 % Normal 34.0-46.0 [facility] Comment on above: Performed By: #### 2 243705, 92725678, 09873889, 1359036, 27849998 ####[address] [place] [address] Hemoglobin (Bld) [Mass/Vol] 12.2 g/dL Normal 12.0-16.0 [facility] Comment on above: Performed By: #### 2 511454, 31660202, 78837134, 7025545, 71567399 ####[facility] [address] [place] [address] Lymph Absolute 2.1 E9/L Normal 1.0-4.0 [facility] Comment on above: Performed By: #### 2 032121, 97357256, 45636424, 8637056, 86340309 ####[address] [address] Lymphocytes/100 WBC (Bld) 31.6 % Normal 14.0-50.0 [facility] Comment on above: Performed By: #### 2 559909, 62855497, 23353237, 1639921, 54566600 ####[address] [address] MCH (RBC) [Entitic mass] 30.0 pg Normal 27.0-34.0 [facility] Comment on above: Performed By: #### 2 206305, 96927563, 19245143, 5211966, 41133665 ####[address] [address] MCHC (RBC) [Mass/Vol] 34.1 g/dL Normal 31.4-36.0 [facility] Comment on above: Performed By: #### 2 045629, 96503332, 46272497, 8619605, 37719914 ####[address] [address] MCV (RBC) [Entitic vol] 88.0 fL Normal 80.0-100.0 [facility] Comment on above: Performed By: #### 2 683811, 50652335, 61959663, 1518837, 20641711 ####[address] [place] [address] Foster Absolute 0.6 E9/L Normal 0.2-1.0 [facility] Comment on above: Performed By: #### 2 965253, 46735571, 21124743, 4721653, 95693220 ####[address] [address] Monocytes/100 WBC (Bld) 9.5 % Normal 4.0-14.0 [facility] Comment on above: Performed By: #### 2 482928, 31813440, 58149242, 8544332, 37626761 ####[address] [address] Neutro Absolute 3.8 E9/L Normal 2.0-7.5 [facility] Comment on above: Performed By: #### 2 207151, 11191808, 50419768, 6995245, 34177899 ####[address] [address] Neutro Auto 57.3 % Normal 36.0-75.0 [facility] Comment on above: Performed By: #### 2 220426, 47445022, 94326613, 7716097, 48845809 ####[address] [address] Platelet 186.0 E9/L Normal 150.0-500.0 [facility] Comment on above: Performed By: #### 2 139964, 27417154, 92669406, 1464762, 58520067 ####[address] [address] Platelet mean volume (Bld) [Entitic vol] 8.0 fL Normal 6.4-10.8 [facility] Comment on above: Performed By: #### 2 436248, 28518195, 02600114, 9486976, 71473278 ####[address] [address] RBC 4.1 E12/L Low 4.3-5.9 [facility] Comment on above: Performed By: #### 2 490160, 64346033, 15978167, 5009180, 70830330 ####[facility] [address] [place] [address] WBC 6.6 E9/L Normal 4.0-11.0 [facility] Comment on above: Performed By: #### 2 192760, 38281937, 36256230, 0577110, 90854307 ####[facility] [address] [place] [address] CHEMISTRYOrdered By: SYSTEM SYSTEM on 09-17-2023 Anion [...] 79 mg/dL Normal 55 - 99 mg/dL [facility] POC Subsection Comment on above: Result Comment: Neil cain RN/ POC Device SN [id number] 1 Invalid Interpretation Code [facility] POC Subsection POC User ID [id number] 1 Invalid Interpretation Code [facility] POC Subsection POC UsernamZIGGY Khan Invalid Interpretation Code [facility] POC Subsection Samia 09-17-2023 NATHALIE Telephone (THOSMN) ASYA ASENCIO I ([id number]) 1950 F Date Time Provider Department 09/17/23 CARMINA MCMAHAN During your visit today, we recorded the following information about you: Carmina Mcmahan APRN.CNP 09/17/2023 4:29 AM Signed [facility] Center Inbound Phone Encounter DATE of SERVICE: 09/17/2023 TIME of SERVICE: 4:21 AM Status: Urgent Service/Provider: Clinical Cardiology Alea Harley MD Reason for call: Medication Issue/Question Contact information: [phone] Resolution: Reinforced education [facility] Comments: Patient calling after waking [...] to try. Carmina Mcmahan APRN.CNP [facility] Operations Manager Station Date of Resolution: 09/17/2023 Time of Resolution [...] Encounter Status:Closed by CARMINA MCMAHAN on 09/17/23 [facility] [facility] Telephone (THOSMN) ASYA ASENCIO I ([id number]) 1950 F Date Time Provider Department 09/17/23 [...] take that medication (valsartan) again. Carmina Mcmahan APRN.[facility] HVTI SOULEYMANE Operations Manager Station 09/17/2023 6:29 AM Allergies As of Date: [...] Status:Closed by CARMINA MCMAHAN on 09/17/23 Normal [facility] COAGULATIONOrdered By: Han blankenship Margot on 09-17-2023 aPTT Coag (PPP) [Time] 38.2 s High 25.1 - 36.5 second(s) [facility] Auto Coag Comment on above: Interpretive Data: [...] the same coagulation reagent and instrumentation as [facility]. Currently there are no coagulation studies available worldwide for children to 14 days, and no normal ranges. Heparin therapeutic range (represented by Anti-Factor Xa activity of 0.2 - 0.4 U/mL) corresponds to PTT of 56.6 - 109.0 sec. INR Coag (PPP) [Relative time] 1.4 {INR} Invalid Interpretation Code [facility] Auto Coag Comment on above: Interpretive Data: I NR results are specifically intended to assess patients stabilized on long-term Anticoagulation therapy suggested INR s Less Intensive Anticoagulation 2.0 3.0 Conventional Range 3.0 4.5 PT Coag (PPP) [Time] 16.4 s High 9.4 - 1 2.5 second(s) [facility] Auto Coag Comment on above: Interpretive Data: [...] the same coagulation reagent and instrumentation as [facility]. Currently there are no coagulation studies available worldwide for children to 14 days, and no normal ranges. Capillary Glucose POCon Glucose [Mass/Vol] 79 mg/dL Normal 55-99 [facility] Comment on above: Result Comment: Neli cain RN/ Performed By: #### 2 [id number] ####[facility] [address] [place] [address] Consent for Treatmenton Consent for Treatment [id number]#1 .00TIFF Normal [facility] Discharge Instructionson Discharge Instructions [id number]# 1.00TIFF Normal [facility] ED Clinical Summaryon 2023 ED Clinical Summary Normal [facility] ED Note-Physicianon 09-17-19 ED Note-Physician Normal [facility] Comment on above: Result Comment: Elec tronically Signed By: Parveen Ayers DO\.br\Date and Time Signed: 09/17/23 06:06 EST ED Patient Education Noteon 09-17-2023 ED Patient Education Note Normal [facility] ED Patient Summaryon 024 ED Patient Summary Normal [facility] HEMATOLOGYOrdered By: SYSTEM SYSTEM on 09-17-2023 Basophil [...] Normal 80.0 - 100.0 fL Remisol Heme Foster Absolute 0.6 E9/L Normal 0.2 - 1.0 [...] Remisol Heme Monitor Recordon 09-17-2023 Monitor Record [id number]# 1.00TIFF Normal [facility] PT & PTTon 09-17-2023 aPTT Coag (PPP) [Time] 38.2 second(s) High 25.1-36.5 [facility] Comment on above: Result Comment: Para meter [...] the same coagulation reagent and instrumentation as [facility]. Currently there are no coagulation studies available worldwide for children to 14 days, and no normal ranges. Heparin therapeutic range (represented by Anti-Factor Xa activity of 0.2 - 0.4 U/mL) corresponds to PTT of 56.6 - 109.0 sec. Performed By: #### 2 119613, [id number], 99582763, 1666023, 21134542 ####[facility] [address] [place] [address] INR Coag (PPP) [Relative time] 1.4 {INR} Invalid Interpretation Code [facility] Comment on above: Result Comment: INR results are specifically intended to assess patients stabilized on long-term Anticoagulation therapy suggested INR?s ?Less Intensive Anticoagulation? 2.0 ? 3.0Conventional Range 3.0 ? 4.5 Performed By: #### 2 910459, 29802010, 02634697, 4106173, 69404397 ####[facility] [address] [place] [address] PT Coag (PPP) [Time] 16.4 second(s) High 9.4-12.5 [facility] Comment on above: Result Comment: 15 d [...] were obtained from a study by Roel [place], et al. prepared from 1437 samples obtained at 7 different centers using the same coagulation reagent and instrumentation as [facility]. Currently there are no coagulation studies available worldwide for children to 14 days, and no normal ranges. Performed By: #### 2 180375, 16275022, 20686859, 3539351, 49086777 ####[facility] [address] [place] [address] Troponin 0 Hr.on 09-17-2023 Troponin 11.70 pg/mL Normal 10.10-27.10 [facility] Comment on above: Result Comment: The 95% CI (Confidence Interval) PPV (Positive Predictive Value) for myocardial infarction in females is 38 pg/mL, in males 51 pg/mL. The results should be used in conjunction with clinical conditions of myocardial infarction.(Access High Sensitivity Troponin I Instructions For Use, [employer] March 2018) Performed By: #### 2 691385, 85347031, 93257595, 3615838, 20447016 ####[address] [place] [address] XR Chest Single Viewon 09-17 XR Chest Single View Normal Fish er [facility] eGFRon 09-17-2023 eGFR 90 mL/min/1.73 m2 Normal >=59 [facility] Comment on above: Order Comment: Order added by Discern Expert. Performed By: #### 2 694001, 91337201, 81706759, 1010990, 33741718 ####[facility] [address] [place] [address] BMPon 09-12-2023 Anion gap [Moles/Vol] 12 mmol/L Normal 6-16 [facility] Comment on above: Performed By: #### 1 7720175, 0943431, 2642924, 89651358 ####[facility] [address] [place] [address] BUN/Creat Ratio 27 No Units High 10-20 [facility] Comment on above: Performed By: #### 1 0810713, 3021647, 7290055, 18305631 ####[facility] [address] [place] [address] Calcium [Mass/Vol] 9.5 mg/dL Normal 8.9-11.1 [facility] Comment on above: Performed By: #### 1 2670423, 5428509, 9180508, 26313795 ####[facility] [address] [place] [address] Chloride [Moles/Vol] 101 mmol/L Normal 101-111 [facility] Comment on above: Performed By: #### 1 8293668, 6828272, 0684673, 81470758 ####[facility] [address] [place] [address] CO2 [Moles/Vol] 27 mmol/L Normal 21-31 [facility] Comment on above: Performed By: #### 1 5171888, 2429556, 0681175, 75272161 ####[facility] [address] [place] [address] Creatinine [Mass/Vol] 0.9 mg/dL Normal 0.5-1.3 [facility] Comment on above: Performed By: #### 1 4463071, 4935792, 5181056, 92971410 ####[facility] [address] [place] [address] Glucose [Mass/Vol] 87 mg/dL Normal 55-199 [facility] Comment on above: Performed By: #### 1 1508869, 9088957, 3016287, 34488165 ####[facility] [address] [place] [address] Potassium [Moles/Vol] 4.9 mmol/L Normal 3.5-5.3 [facility] Comment on above: Performed By: #### 1 7252505, 1752704, 4512324, 55863035 ####[facility] [address] [place] [address] Sodium [Moles/Vol] 135 mmol/L Normal 135-145 [facility] Comment on above: Performed By: #### 1 3167270, 8018120, 3964188, 19247950 ####[facility] [address] [place] [address] Urea nitrogen [Mass/Vol] 24 mg/dL High 5-21 [facility] Comment on above: Performed By: #### 1 8416424, 8043811, 5097266, 65483798 ####[facility] [address] [place] [address] CBC w/ Auto Diffon 4 Basophil Absolute 0.1 E9/L Normal 0.0-0.2 [facility] Comment on above: Performed By: #### 1 4504126, 7055017, 6604990, 81003853 ####[address] [address] Basophils/100 WBC (Bld) 1.1 % Normal 0.0-2.0 [facility] Comment on above: Performed By: #### 1 2953042, 3985283, 3030002, 32751403 ####[address] [address] Eos Absolute 0.1 E9/L Normal 0.0-0.5 [facility] Comment on above: Performed By: #### 1 8898557, 9686400, 8612954, 07556526 ####[address] [address] Eosinophils/100 WBC (Bld) 1.2 % Normal 0.0-8.0 [facility] Comment on above: Performed By: #### 1 5299575, 0335224, 9368791, 59387761 ####[address] [address] Erythrocyte distribution width (RBC) [Ratio] 13.7 % Normal 10.9-14.2 [facility] Comment on above: Performed By: #### 1 9181723, 3861885, 7941032, 11936720 ####[address] [address] Hematocrit (Bld) [Volume fraction] 41.0 % Normal 34.0-46.0 [facility] Comment on above: Performed By: #### 1 9995673, 8838391, 5780028, 48539597 ####[address] [address] Hemoglobin (Bld) [Mass/Vol] 13.4 g/dL Normal 12.0-16.0 [facility] Comment on above: Performed By: #### 1 7143592, 3145746, 1061512, 81858344 ####[address] [address] Lymph Absolute 1.9 E9/L Normal 1.0-4.0 [facility] Comment on above: Performed By: #### 1 0685100, 4753353, 3499800, 59195460 ####[address] [address] Lymphocytes/100 WBC (Bld) 25.9 % Normal 14.0-50.0 [facility] Comment on above: Performed By: #### 1 5835859, 6944335, 7096223, 68860648 ####[address] [address] MCH (RBC) [Entitic mass] 29.5 pg Normal 27.0-34.0 [facility] Comment on above: Performed By: #### 1 9187036, 7885160, 7857346, 55786430 ####[address] [address] MCHC (RBC) [Mass/Vol] 32.9 g/dL Normal 31.4-36.0 [facility] Comment on above: Performed By: #### 1 1734573, 4974919, 2689759, 78957721 ####[address] [address] MCV (RBC) [Entitic vol] 89.6 fL Normal 80.0-100.0 [facility] Comment on above: Performed By: #### 1 2973835, 5364381, 8554293, 82934077 ####[facility] [address] [place] [address] Foster Absolute 0.6 E9/L Normal 0.2-1.0 [facility] Comment on above: Performed By: #### 1 0805780, 3734012, 1805485, 57311226 ####[address] [place] [address] Monocytes/100 WBC (Bld) 8.0 % Normal 4.0-14.0 [facility] Comment on above: Performed By: #### 1 2647025, 9139191, 1275365, 64396437 ####[address] [place] [address] Neutro Absolute 4.7 E9/L Normal 2.0-7.5 [facility] Comment on above: Performed By: #### 1 8840966, 2818820, 6683871, 24597458 ####[address] [address] Neutro Auto 63.8 % Normal 36.0-75.0 [facility] Comment on above: Performed By: #### 1 9357241, 4495928, 0153065, 93879663 ####[address] [place] [address] Platelet 214.0 E9/L Normal 150.0-500.0 [facility] Comment on above: Performed By: #### 1 7495524, 4921481, 8813121, 14754080 ####[facility] [address] [place] [address] Platelet mean volume (Bld) [Entitic vol] 8.2 fL Normal 6.4-10.8 [facility] Comment on above: Performed By: #### 1 6093176, 8646015, 7515009, 59246886 ####[address] [place] [address] RBC 4.6 E12/L Normal 4.3-5.9 [facility] Comment on above: Performed By: #### 1 3658798, 3663064, 2450257, 03952673 ####[facility] [address] [place] [address] WBC 7.4 E9/L Normal 4.0-11.0 [facility] Comment on above: Performed By: #### 1 5654037, 1835572, 5675037, 53311316 ####[facility] [address] [place] [address] CHEMISTRYOrdered By: Maryan Frost on 09-12-2023 U [...] Sensitivity Troponin I Instructions For Use, [employer], March 2018) Urea nitrogen [Mass/Vol] 24 mg/dL High 5 - 21 mg/dL Remisol Chem Urea nitrogen/Creatinine [Mass ratio] 27 mg/mg High 10 - 20 Remisol Chem CHEMISTRYOrdered By: Lab ROP User on 09-12-2023 Glucose [Mass/Vol] 96 mg/dL Normal 55 - 99 mg/dL [facility] POC Subsection Comment on above: Result Comment: Neli cain RN/ POC Device SN [id number] Invalid Interpretation Code [facility] POC Subsection POC User ID [id number] 1 Invalid Interpretation Code [facility] POC Subsection POC Username CORINNE COTA Invalid Interpretation Code [facility] POC Subsection CNPNon 09-12-2023 CNPN Telephone (CARDHOSP) ASYA ASENCIO I ([id number]) 1950 F Date Time Provider Department 09/12/23 [...] medical care. Martha Galvez MD PGY 5 Apron Operator Heart,Vascular, and Thoracic [place] [facility] Allergies As of Date: 09/12/2023 Noted [...] Status:Closed by MARTHA GALVEZ on 09/12/23 Normal [facility] CNPN Telephone (CARCMN) ASYA ASENCIO I ([id number]) 1950 F Date Time Provider Department 09/12/23 ALEA HARLEY CARCMN During your visit today, we recorded the following information about you: Junito Mendes 09/12/2023 9:26 AM Signed September 12, 2023 Patient Contact Number: [phone] Patient last seen within the last year: [...] she was able to speak with FACILITY SALES AND ADMIN in her PCP's office since he is [...] mitral regurgitat (more content not included)... Normal [facility] CT Head or Brain w/o Contras ton 09-12-2023 CT Head or Brain w/o Contrast Normal [facility] Capillary Glucose POCon 08-16 Glucose [Mass/Vol] 96 mg/dL Normal 55-99 [facility] Comment on above: Result Comment: Neli cain RN/ Performed By: #### 2 [id number] ####[facility] [address] [place] [address] Consent for Treatmenton 08-16 Consent for Treatment [id number]#1 .00TIFF Normal [facility] Discharge Instructionson Discharge Instructions [id number]#1 .00TIFF Normal [facility] ED Clinical Summaryon 2023 ED Clinical Summary Normal [facility] ED Note-Physicianon 09-12-19 ED Note-Physician Normal [facility] Comment on above: Result Comment: Elec tronically Signed By: Armen LINDSEY, Parveen SElise\.br\Date and Time Signed: 09/12/23 06:35 EST ED Patient Education Noteon 09-12-2023 ED Patient Education Note Normal [facility] ED Patient Summaryon 024 ED Patient Summary Normal [facility] HEMATOLOGYOrdered By: SYSTEM SYSTEM on 09-12-2023 Basophil [...] Normal 80.0 - 100.0 fL Remisol Heme Foster Absolute 0.6 E9/L Normal 0.2 - 1.0 [...] Remisol Heme Monitor Recordon 09-12-2023 Monitor Record [id number]# 1.00TIFF Normal [facility] Troponin 0 Hr.on 09-12-2023 Troponin 12.70 pg/mL Normal 10.10-27.10 [facility] Comment on above: Result Comment: The 95% CI (Confidence Interval) PPV (Positive Predictive Value) for myocardial infarction in females is 38 pg/mL, in males 51 pg/mL. The results should be used in conjunction with clinical conditions of myocardial infarction.(Access High Sensitivity Troponin I Instructions For Use, [employer], March 2018) Performed By: #### 1 8525199, 4618543, 1217732, 49842193 ####[facility] [address] [place] [address] U Drug Screenon 09-12-2023 U Amph Scr Negative Invalid Interpretation Code [facility] Comment on above: Performed By: #### 2 934725 ####[facility] [address] [place] [address] U Hayley Scr Negative Invalid Interpretation Code [facility] Comment on above: Performed By: #### 2 486330 ####[facility] [address] [place] [address] U Benzodia Scr Negative Invalid Interpretation Code [facility] Comment on above: Performed By: #### 2 641762 ####[facility] [address] [place] [address] U Cannab Scr Negative Invalid Interpretation Code [facility] Comment on above: Performed By: #### 2 716454 ####[facility] [address] [place] [address] U Cocaine Scr Negative Invalid Interpretation Code [facility] Comment on above: Performed By: #### 2 922383 ####[facility] [address] [place] [address] U Opiate Scr Negative Invalid Interpretation Code [facility] Comment on above: Performed By: #### 2 744611 ####[facility] [address] [place] [address] U PCP Scr Negative Invalid Interpretation Code [facility] Comment on above: Performed By: #### 2 993681 ####[facility] [address] [place] [address] UA With Cult Reflexon 2023 Bilirubin Ql (U) Negative Normal Negative [facility] Comment on above: Performed By: #### 1 2191938 ####[facility] [address] [place] [address] Clarity (U) CLEAR Normal Clear [facility] Comment on above: Performed By: #### 1 6144620 ####[facility] [address] [place] [address] Color (U) STRAW Invalid Interpretation Code [facility] Comment on above: Performed By: #### 1 4066722 ####[facility] [address] [address] Epithelial cells.squamous LM.HPF (Urine sed) [#/Area] 0-2 Normal 0-2 [facility] Comment on above: Performed By: #### 1 3101812 ####[address] [address] Glucose Test strip (U) [Mass/Vol] Negative Normal Negative [facility] Comment on above: Performed By: #### 1 2482495 ####[address] [address] Hemoglobin Ql (U) 1+ Abnormal Negative [facility] Comment on above: Performed By: #### 1 0359677 ####[address] [address] Ketones (U) [Mass/Vol] Negative Normal Negative [facility] Comment on above: Performed By: #### 1 7001144 ####[address] [address] [place].plasma/[place] .RBC (Bld) [Mass ratio] 0-3 Normal 0-3 [facility] Comment on above: Performed By: #### 1 6395986 ####[address] [address] Nitrite Ql (U) Negative Normal Negative [facility] Comment on above: Performed By: #### 1 2883057 ####[address] [address] pH (U) 7.0 [pH] Invalid Interpretation Code 5.0-9.0 [facility] Comment on above: Performed By: #### 1 3793457 ####[address] [address] Protein (U) [Mass/Vol] Negative Normal Negative [facility] Comment on above: Performed By: #### 1 7779871 ####[address] [address] Specific gravity (U) [Rel density] <=1.005 Invalid Interpretation Code 1.005-1.030 [facility] Comment on above: Performed By: #### 1 5791772 ####[facility] [address] [place] [address] Type of Urine collection method Clean Catch Normal [facility] Comment on above: Performed By: #### 1 9310385 ####[facility] [address] [place] [address] Urobilinogen Qn (U) 0.2 {Judith'U}/dL Normal 0.0-1.0 [facility] Comment on above: Performed By: #### 1 4850416 ####[facility] [address] [place] [address] WBC Auto Ql (U) TRACE Abnormal Negative [facility] Comment on above: Performed By: #### 1 2006479 ####[facility] [address] [place] [address] WBC LM.HPF (Urine sed) [#/Area] 0-5 Normal 0-5 [facility] Comment on above: Performed By: #### 1 1693999 ####[facility] [address] [place] [address] URINALYSISOrdered By: Ethan Frost on 09-12-2023 Bilirubin [...] AM) Normal Negative [facility] UA Auto SS [place].plasma/[place] .RBC (Bld) [Mass ratio] 0-3 /HPF Normal [...] FT UA Auto SS Urobilinogen Qn (U) 0.3077108 {Juidth'U}/dL Normal 0.0 - 1.0 EU/dL FT UA Auto SS WBC Auto Ql (U) Trace *ABN* (09/12/23 4:53 AM) Invalid Interpretation Code Negative [facility] UA Auto SS WBC LM.HPF (Urine sed) [#/Area] 0-5 /HPF Normal 0-5/HPF FT UA Auto SS XR Chest Single Viewon 09-12 XR Chest Single View Normal Fish er [facility] eGFRon 09-12-2023 eGFR 66 mL/min/1.73 m2 Normal >=59 [facility] Comment on above: Order Comment: Order added by Discern Expert. Performed By: #### 1 9284231, 4664699, 8046336, 39068306 ####[facility] [address] [place] [address] Samia 09-07-2023 TALIBN Telephone (PODCCP) ASYA ASENCIO I ([id number]) 1950 F Date Time Provider Department 09/07/23 [...] Reason for Visit: Follow Up Phone Call [2229] Cmt: Relate care discharge follow up-day 8-nhonqfodg-qke clear Prescriptions as of 09/07/2023 - apixaban [...] Encounter Status:Closed by LE LEYVA on 09/07/23 [facility] AS[facility] ([id number]) 1950 F Date Time Provider Department 09/01/23 [...] Reason for Visit: Follow Up Phone Call [0223] Cmt: RC f/u all clear Prescriptions as [...] Encounter Status:Closed by CARLA OLIVERA on 09/01/23 [facility] ASYA ASENCIO I ([id number]) 1950 F Date Time Provider Department 09/01/23 ALEA HARLEY During your visit today, we recorded the following information about you: Junito Mendes 09/01/2023 9:33 AM Signed September 01, 2023 Patient Contact Number: [phone] Patient last seen within the last year: [...] Fully Assessed Reason for Visit: Medication Question [7040] Cmt: Eliquis and Valsartan Prescriptions as of [...] Status:Closed by JUNITO MENDES on 09/01/23 Normal [facility] CBC panel Auto (Bld)on 08-31 Erythrocyte distribution width (RBC) [Ratio] 12.9 % Normal 11.5-15.0 [facility] Comment on above: Order Comment: Speci men Type: BLOOD SPECIMEN Ordering Facility: [facility] Address: [address] [place] [address] [place] [address] Performed By: #### 2 8848-8, 33232-7 #### [facility] CLIA [id number] [address] [place] [address] [place] Hematocrit (Bld) [Volume fraction] 36.1 % Normal 36.0-46.0 [facility] Comment on above: Order Comment: Speci men Type: BLOOD SPECIMEN Ordering Facility: [facility] Address: [address] [place] [address] Performed By: #### 2 4323-8, 74397-9 #### [facility] CLIA [id number] [address] [place] [address] [place] Hemoglobin (Bld) [Mass/Vol] 11.9 g/dL Normal 11.5-15.5 [facility] Comment on above: Order Comment: Speci men Type: BLOOD SPECIMEN Ordering Facility: [facility] Address: [address] [place] [address] Performed By: #### 2 4323-8, 95659-2 #### [facility] CLIA [id number] [address] [place] [address] [place] MCH (RBC) [Entitic mass] 29.5 pg Normal 26.0-34.0 [facility] Comment on above: Order Comment: Speci men Type: BLOOD SPECIMEN Ordering Facility: [facility] Address: [address] [place] [address] Performed By: #### 2 4323-8, 48954-3 #### [facility] CLIA [id number] [address] [place] [address] [place] MCHC (RBC) [Mass/Vol] 33.0 g/dL Normal 30.5-36.0 [facility] Comment on above: Order Comment: Speci men Type: BLOOD SPECIMEN Ordering Facility: [facility] Address: [address] [place] [address] Performed By: #### 2 4323-8, 23302-6 #### [facility] CLIA [id number] [address] [place] [address] [place] MCV (RBC) [Entitic vol] 89.4 fL Normal 80.0-100.0 [facility] Comment on above: Order Comment: Speci men Type: BLOOD SPECIMEN Ordering Facility: [facility] Address: [address] [place] [address] Performed By: #### 2 4323-8, 74010-0 #### [facility] CLIA [id number] [address] [place] [address] [place] Nucleated RBC (Bld) [#/Vol] 10*3/uL Normal <0.01 [facility] Comment on above: Order Comment: Speci men Type: BLOOD SPECIMEN Ordering Facility: [facility] Address: [address] [place] [address] Performed By: #### 2 4323-8, 37277-8 #### [facility] CLIA [id number] [address] [place] [address] [place] Platelet mean volume (Bld) [Entitic vol] 10.2 fL Normal 9.0-12.7 [facility] Comment on above: Order Comment: Speci men Type: BLOOD SPECIMEN Ordering Facility: [facility] Address: [address] [place] [address] Performed By: #### 2 4323-8, 78327-4 #### [facility] CLIA [id number] [address] [place] [address] [place] Platelets (Bld) [#/Vol] 175 10*3/uL Normal 150-400 [facility] Comment on above: Order Comment: Speci men Type: BLOOD SPECIMEN Ordering Facility: [facility] Address: [address] [place] [address] Performed By: #### 2 4323-8, 55828-5 #### [facility] CLIA [id number] [address] [place] [address] [place] RBC (Bld) [#/Vol] 4.04 10*6/uL Normal 3.90-5.20 [facility] Comment on above: Order Comment: Speci men Type: BLOOD SPECIMEN Ordering Facility: [facility] Address: [address] [place] [address] Performed By: #### 2 4323-8, 23206-0 #### [facility] CLIA [id number] [address] [place] [address] [place] WBC (Bld) [#/Vol] 6.11 10*3/uL Normal 3.70-11.00 [facility] Comment on above: Order Comment: Speci men Type: BLOOD SPECIMEN Ordering Facility: [facility] Address: [address] [place] [address] Performed By: #### 2 4323-8, 21398-1 #### [facility] CLIA [id number] [address] [place] [address] [place] CNDSon 08-31-2023 CNDS HNO ID: [id number] Author: VIRY MIDDLETON MD Service: Cardiovascular Medicine [...] business days of your discharge please call [phone]. 3) Psychiatry to discuss management of your anxiety and how to improve the regimen of your anxiety medications (lorazepam). If you don't see an appointment on my chart within 3 business days of your discharge please call [phone]. 4) Psychotherapy to promote use of adaptive [...] void residual was 305cc, and a 14 turkmen robles was inserted on 08/28 and removed [...] well as an SGLTi as outpatient. #Afib ([id number] 5) Rate controlled this admission (hx of RVR), on anticoagulation which should be continued. Rate control with beta yolette and digoxin 0.125 mg. On 08/28/23 rhythm control achieved with KRYSTINA DCCV, and digoxin was decreased by half. Plan: - Continue with digoxin 0.125 mg and carv (more content not included)... Normal [facility] Comprehensive metabolic 2000 panelon 08-31-2023 Albumin [Mass/Vol] 3.5 g/dL Low 3.9-4.9 [facility] Comment on above: Order Comment: Speci men Type: BLOOD SPECIMENOrdering Facility: [facility] Address: [address] [place], [place] [address] [address] Performed By: #### 2 8093-8, ####[facility] [id number] [place] [address] [place] ALP [Catalytic activity/Vol] 52 U/L Normal 34-123 [facility] Comment on above: Order Comment: Speci men Type: BLOOD SPECIMENOrdering Facility: [facility] Address: [address] [place] [address] Performed By: #### 2 432-8, ####[facility] [id number] [place] [address] [place] ALT [Catalytic activity/Vol] 24 U/L Normal 7-38 [facility] Comment on above: Order Comment: Speci men Type: BLOOD SPECIMENOrdering Facility: [facility] Address: [address] [place] [address] Performed By: #### 2 8, ####[facility] [id number] [place] [address] [place] Anion gap [Moles/Vol] 9 mmol/L Normal 9-18 [facility] Comment on above: Order Comment: Speci men Type: BLOOD SPECIMENOrdering Facility: [facility] Address: [address] [place] [address] Performed By: #### 2 4322-8, ####[facility] [id number] [place] [address] [place] AST [Catalytic activity/Vol] 20 U/L Normal 13-35 [facility] Comment on above: Order Comment: Speci men Type: BLOOD SPECIMENOrdering Facility: [facility] Address: [address] [place] [address] Performed By: #### 2 4323-8, ####[facility] [id number] [place] [address] [place] Bilirubin [Mass/Vol] 0.5 mg/dL Normal 0.2-1.3 [facility] Comment on above: Order Comment: Speci men Type: BLOOD SPECIMENOrdering Facility: [facility] Address: [address] [place] [address] Performed By: #### 2 4323-8, ####[facility] [id number] [place] [address] [place] Calcium [Mass/Vol] 9.2 mg/dL Normal 8.5-10.2 [facility] Comment on above: Order Comment: Speci men Type: BLOOD SPECIMENOrdering Facility: [facility] Address: [address] [place] [address] Performed By: #### 2 432-8, ####[facility] [id number] [place] [address] [place] Chloride [Moles/Vol] 103 mmol/L Normal 97-105 [facility] Comment on above: Order Comment: Speci men Type: BLOOD SPECIMENOrdering Facility: [facility] Address: [address] [place] [address] Performed By: #### 2 4322-8, ####[facility] [id number] [place] [address] [place] CO2 [Moles/Vol] 25 mmol/L Normal 22-30 [facility] Comment on above: Order Comment: Speci men Type: BLOOD SPECIMENOrdering Facility: [facility] Address: [address] [place] [address] Performed By: #### 2 4323-8, ####[facility] [id number] [place] [address] [place] Creatinine [Mass/Vol] 0.90 mg/dL Normal 0.58-0.96 [facility] Comment on above: Order Comment: Speci men Type: BLOOD SPECIMENOrdering Facility: [facility] Address: [address] [place] [address] Performed By: #### 2 4323-8, 56135-9 ####[facility] [id number] [place] [address] [place] Creatinine and Glomerular filtration rate.predicted panel (S/P/Bld) 67 mL/min/1.73m??? Normal >=60 [facility] Comment on above: Order Comment: Nichole becerra Type: BLOOD SPECIMENOrdering Facility: [facility] Address: [address] [place] [address] Result Comment: Shelley mated Glomerular Filtration Rate [...] actual GFR. Performed By: #### 2 4323-8, 20217-8 ####[facility] [id number] [place] [address] [place] Glucose [Mass/Vol] 85 mg/dL Normal 74-99 [facility] Comment on above: Order Comment: Nichole becerra Type: BLOOD SPECIMENOrdering Facility: [facility] Address: [address] [place] [address] Result Comment: The [place] [employer] (ADA) provides guidance for cutoff [...] Standards of Medical Care in Diabetes 2016, [place] [employer]. Diabetes Care. 2016.39(Suppl 1). Performed By: #### 2 8, ####[facility] [id number] [place] [id number] [place] Potassium [Moles/Vol] 4.3 mmol/L Normal 3.7-5.1 [facility] Comment on above: Order Comment: Speci men Type: BLOOD SPECIMENOrdering Facility: [facility] Address: [address] [place] [address] Performed By: #### 2 8, ####[facility] [id number] [place] [address] [place] Protein [Mass/Vol] 5.9 g/dL Low 6.3-8.0 [facility] Comment on above: Order Comment: Speci men Type: BLOOD SPECIMENOrdering Facility: [facility] Address: [address] [place] [address] Performed By: #### 2 4323-03, ####[facility] [id number] [place] [id number] [place] Sodium [Moles/Vol] 137 mmol/L Normal 136-144 [facility] Comment on above: Order Comment: Speci men Type: BLOOD SPECIMENOrdering Facility: [facility] Address: [address] [place] [address] Performed By: #### 2 8, ####[facility] [id number] [place] [id number] [place] Urea nitrogen [Mass/Vol] 16 mg/dL Normal 7-21 [facility] Comment on above: Order Comment: Speci men Type: BLOOD SPECIMENOrdering Facility: [facility] Address: [address] [place] [address] Performed By: #### 2 4323-8, ####[facility] [id number] [place] [id number] [place] Magnesium SerPl-mCncon 08-31 Magnesium [Mass/Vol] 2.2 mg/dL Normal 1.7-2.3 [facility] Comment on above: Order Comment: Speci men Type: BLOOD SPECIMENOrdering Facility: [facility] Address: [address] [place] [address] Performed By: #### 2 4323-8, 72701-4 ####[facility] [id number] [id number] OF [facility] NUTRITIONon 08-31-2023 NUTRITION HNO ID: [id number] Author: KAMLA DUENAS RD Service: Nutrition Therapy [...] RD DATE: 08/31/2023 TIME: 10:53 AM Normal [facility] PT EDon 08-31-2023 PT ED HNO ID: [id number] Author: FELISA RIBERA RPh Service: Pharmacy Author [...] DAILY FURTHER RECOMMENDATIONS (IF ANY): MILLI [facility] PAGER: [phone] Normal [facility] PT ED HNO ID: [id number] Author: KAMLA DUENAS RD Service: Nutrition Therapy [...] 31, 2023 TIME: 12:07 PM PAGER: Normal [facility] FEMALE PELVIS TRANSABD LT Don 08-31-2023 [...] additional imaging is advised for this finding. Form Tamper: LILIANA Transcribe Date/Time: Aug 31 2023 9:09A Dictated by : RADHA PEREYRA MD This examination was interpreted and the report reviewed and electronically signed by: RADHA PEREYRA MD on Aug 31 2023 9:13AM EST [id number] N Normal [facility] US FEMALE PELVIS TRANSVAGon 08-31-2023 US FEMALE PELVIS TRANSVAG * * *Final Report* * * DATE OF EXAM: Aug 31 2023 8:45AM [facility] 1060 - US FEMALE PELVIS TRANSVAG / [...] additional imaging is advised for this finding. Form Tamper: [facility] Transcribe Date/Time: Aug 31 2023 9:09A Dictated by : RADHA PEREYRA MD This examination was interpreted and the report reviewed and electronically signed by: RADHA PEREYRA MD on Aug 31 2023 9:13AM EST [id number] N Normal [facility] CBC panel Auto (Bld)on 08-30 Erythrocyte distribution width (RBC) [Ratio] 13.1 % Normal 11.5-15.0 [facility] Comment on above: Order Comment: Speci men Type: BLOOD SPECIMEN Order[facility] Facility: [facility] Address: [address] [place] [address] Performed By: #### 2 4323-8, 85128-0 #### [facility] CLIA [id number] [address] [place] [address] [place] Hematocrit (Bld) [Volume fraction] 38.9 % Normal 36.0-46.0 [facility] Comment on above: Order Comment: Speci men Type: BLOOD SPECIMEN Ordering Facility: [facility] Address: [address] [place] [address] Performed By: #### 2 4323-8, 32988-2 #### [facility] CLIA [id number] [address] [place] [address] [place] Hemoglobin (Bld) [Mass/Vol] 12.6 g/dL Normal 11.5-15.5 [facility] Comment on above: Order Comment: Speci men Type: BLOOD SPECIMEN Ordering Facility: [facility] Address: [address] [place] [address] Performed By: #### 2 4323-8, 53728-0 #### [facility] CLIA [id number] [address] [place] [address] [place] MCH (RBC) [Entitic mass] 29.9 pg Normal 26.0-34.0 [facility] Comment on above: Order Comment: Speci men Type: BLOOD SPECIMEN Order[facility] Facility: [facility] Address: [address] [place] [address] Performed By: #### 2 4323-8, 59372-6 #### [facility] CLIA [id number] [address] [place] [address] [place] MCHC (RBC) [Mass/Vol] 32.4 g/dL Normal 30.5-36.0 [facility] Comment on above: Order Comment: Speci men Type: BLOOD SPECIMEN Ordering Facility: [facility] Address: [address] [place] [address] Performed By: #### 2 4323-8, 28425-5 #### [facility] CLIA [id number] [address] [place] [address] [place] MCV (RBC) [Entitic vol] 92.2 fL Normal 80.0-100.0 [facility] Comment on above: Order Comment: Speci men Type: BLOOD SPECIMEN Ordering Facility: [facility] Address: [address] [place] [address] Performed By: #### 2 4323-8, 13899-7 #### [facility] CLIA [id number] [address] [place] [address] [place] Nucleated RBC (Bld) [#/Vol] 10*3/uL Normal <0.01 [facility] Comment on above: Order Comment: Speci men Type: BLOOD SPECIMEN Ordering Facility: [facility] Address: [address] [place] [address] Performed By: #### 2 4323-8, 56590-2 #### [facility] CLIA [id number] [address] [place] [address] [place] Platelet mean volume (Bld) [Entitic vol] 10.4 fL Normal 9.0-12.7 [facility] Comment on above: Order Comment: Speci men Type: BLOOD SPECIMEN Ordering Facility: [facility] Address: [address] [place] [address] Performed By: #### 2 4323-8, 30121-8 #### [facility] CLIA [id number] [address] [place] [address] [place] Platelets (Bld) [#/Vol] 185 10*3/uL Normal 150-400 [facility] Comment on above: Order Comment: Speci men Type: BLOOD SPECIMEN Ordering Facility: [facility] Address: [address] [place] [address] Performed By: #### 2 4323-8, 12380-1 #### [facility] CLIA [id number] [address] [place] [address] [place] RBC (Bld) [#/Vol] 4.22 10*6/uL Normal 3.90-5.20 [facility] Comment on above: Order Comment: Speci men Type: BLOOD SPECIMEN Ordering Facility: [facility] Address: [address] [place] [address] Performed By: #### 2 4323-8, 32042-2 #### [facility] CLIA [id number] [address] [place] [address] [place] WBC (Bld) [#/Vol] 6.51 10*3/uL Normal 3.70-11.00 [facility] Comment on above: Order Comment: Speci men Type: BLOOD SPECIMEN Ordering Facility: [facility] Address: [address] [place] [address] Performed By: #### 2 4323-8, 92054-4 #### [facility] CLIA [id number] [address] [place] [address] [place] CNCOon 08-30-2023 CNCO Letter Text Normal [facility] CONSULT PROGon 08-30-2023 CONSULT PROG HNO ID: [id number] Author: CHAUNCEY LEYVA, PhD Service: Psychology Author [...] pt will receive the most benefit from half-way outpatient psychotherapy. However, CL Psychology will be [...] adaptive coping (more content not included)... Normal [facility] Comprehensive metabolic 2000 panelon 08-30-2023 Albumin [Mass/Vol] 3.9 g/dL Normal 3.9-4.9 [facility] Comment on above: Order Comment: Speci men Type: BLOOD SPECIMEN Ordering Facility: [facility] Address: [address] [place] [id number] Performed By: #### 2 4323-8, 87510-1 #### [facility] CLIA [id number] [address] [place] [address] [place] ALP [Catalytic activity/Vol] 65 U/L Normal 34-123 [facility] Comment on above: Order Comment: Speci men Type: BLOOD SPECIMEN Ordering Facility: [facility] Address: [address] [place], [place] [address] Performed By: #### 2 4323-8, 69852-1 #### [facility] CLIA [id number] [address] [place] [address] [place] ALT [Catalytic activity/Vol] 28 U/L Normal 7-38 [facility] Comment on above: Order Comment: Speci men Type: BLOOD SPECIMEN Ordering Facility: [facility] Address: [address] [place] [address] Performed By: #### 2 4323-8, 37697-7 #### [facility] CLIA [id number] [address] [place] [address] [place] Anion gap [Moles/Vol] 9 mmol/L Normal 9-18 [facility] Comment on above: Order Comment: Speci men Type: BLOOD SPECIMEN Ordering Facility: [facility] Address: [address] [place], [place] [address] Performed By: #### 2 4323-8, 35981-5 #### [facility] CLIA [id number] [address] [place] [address] [place] AST [Catalytic activity/Vol] 24 U/L Normal 13-35 [facility] Comment on above: Order Comment: Speci men Type: BLOOD SPECIMEN Ordering Facility: [facility] Address: [address] [place], [place] [address] Performed By: #### 2 4323-8, 67314-7 #### [facility] CLIA [id number] [address] [place] [address] [place] Bilirubin [Mass/Vol] 0.5 mg/dL Normal 0.2-1.3 [facility] Comment on above: Order Comment: Speci men Type: BLOOD SPECIMEN Ordering Facility: [facility] Address: [address] [place] [address] Performed By: #### 2 4323-8, 27286-1 #### [facility] CLIA [id number] [address] [place] [address] [place] Calcium [Mass/Vol] 9.3 mg/dL Normal 8.5-10.2 [facility] Comment on above: Order Comment: Speci men Type: BLOOD SPECIMEN Ordering Facility: [facility] Address: [address] [place] [address] Performed By: #### 2 4323-8, 51129-8 #### [facility] CLIA [id number] [address] [place] [address] [place] Chloride [Moles/Vol] 103 mmol/L Normal 97-105 [facility] Comment on above: Order Comment: Speci men Type: BLOOD SPECIMEN Ordering Facility: [facility] Address: [address] [place] [address] Performed By: #### 2 4323-8, 26786-2 #### [facility] CLIA [id number] [address] [place] [address] [place] CO2 [Moles/Vol] 25 mmol/L Normal 22-30 [facility] Comment on above: Order Comment: Speci men Type: BLOOD SPECIMEN Ordering Facility: [facility] Address: [address] [place] [address] Performed By: #### 2 4323-8, 27500-8 #### [facility] CLIA [id number] [address] [place] [address] [place] Creatinine [Mass/Vol] 1.11 mg/dL High 0.58-0.96 [facility] Comment on above: Order Comment: Nichole becerra Type: BLOOD SPECIMEN Order[facility] Facility: [facility] Address: [address] [place] [address] Performed By: #### 2 4323-8, 91518-4 #### [facility] CLIA [id number] [address] [place] [address] [place] Creatinine and Glomerular filtration rate.predicted panel (S/P/Bld) 52 mL/min/1.73m??? Low >=60 [facility] Comment on above: Order Comment: Nichole becerra Type: BLOOD SPECIMEN Order[facility] Facility: [facility] Address: [address] [place] [address] Result Comment: Shelley mated Glomerular Filtration Rate [...] actual GFR. Performed By: #### 2 4323-8, 13630-7 #### [facility] CLIA [id number] [address] [place] [address] [place] Glucose [Mass/Vol] 149 mg/dL High 74-99 [facility] Comment on above: Order Comment: Nichole becerra Type: BLOOD SPECIMEN Ordering Facility: [facility] Address: [address] [place] [address] Result Comment: The [place] [employer] (ADA) provides guidance for cutoff [...] Standards of Medical Care in Diabetes 2016, [place] [employer]. Diabetes Care. 2016.39(Suppl 1). Performed By: #### 2 4323-8, 29251-6 #### [facility] CLIA [id number] [address] [place] [address] [place] Potassium [Moles/Vol] 5.0 mmol/L Normal 3.7-5.1 [facility] Comment on above: Order Comment: Speci men Type: BLOOD SPECIMEN Ordering Facility: [facility] Address: [address] [place] [address] Performed By: #### 2 4323-8, 44864-2 #### [facility] CLIA [id number] [address] [place] [address] [place] Protein [Mass/Vol] 6.3 g/dL Normal 6.3-8.0 [facility] Comment on above: Order Comment: Speci men Type: BLOOD SPECIMEN Ordering Facility: [facility] Address: [address] [place] [address] Performed By: #### 2 4323-8, 29798-6 #### [facility] CLIA [id number] [address] [place] [address] [place] Sodium [Moles/Vol] 137 mmol/L Normal 136-144 [facility] Comment on above: Order Comment: Speci men Type: BLOOD SPECIMEN Ordering Facility: [facility] Address: [address] [place] [id number] Performed By: #### 2 4323-8, 73940-4 #### [facility] CLIA [id number] [address] [place] [address] [place] Urea nitrogen [Mass/Vol] 19 mg/dL Normal 7-21 [facility] Comment on above: Order Comment: Speci men Type: BLOOD SPECIMEN Ordering Facility: [facility] Address: [address] [place] [address] Performed By: #### 2 4323-8, 57190-2 #### [facility] CLIA [id number] [address] [place] [address] [place] Magnesium SerPl-mCncon 08-30 Magnesium [Mass/Vol] 2.2 mg/dL Normal 1.7-2.3 [facility] Comment on above: Order Comment: Speci men Type: BLOOD SPECIMEN Ordering Facility: [facility] Address: [address] [place] [address] Performed By: #### 2 4323-8, 42541-9 #### [facility] CLIA [id number] [address] [place] [address] [place] NURSING PROGon 08-30-2023 NURSING PROG HNO ID: [id number] Author: CHAVA CAMPUZANO RN Service: Nursing Author Type: Registered Nurse Type: Nursing Progress Note Filed: 08/30/2023 16:30 Note Text: Event(s) / Intervention Note: PATIENT NAME: Asya Asencio Patient Location: [address]02-11-13 Room: +voiding post robles removal, refer to [facility] for output. Normal [facility] NUTRITIONon 08-30-2023 NUTRITION HNO ID: [id number] Author: KAMLA DUENAS RD Service: Nutrition Therapy [...] by: Patient/family self-report, Anorexia Estimated kilocalorie needs: 9693-4094 Calorie Calculation Method: 30-35 kcals/kg Estimated protein [...] August 30, 2023 TIME: 12:32 PM Normal [facility] CBC panel Auto (Bld)on 08-29 Erythrocyte distribution width (RBC) [Ratio] 13.1 % Normal 11.5-15.0 [facility] Comment on above: Order Comment: Speci men Type: BLOOD SPECIMENOrdering Facility: [facility] Address: [address] [place] [address] Performed By: #### 5 8410-2 ####[facility] [id number] [place] [address] [place] Hematocrit (Bld) [Volume fraction] 39.4 % Normal 36.0-46.0 [facility] Comment on above: Order Comment: Speci men Type: BLOOD SPECIMENOrdering Facility: [facility] Address: [address] [place] [address] Performed By: #### 5 8410-2 ####[facility] [id number] [place] [address] [place] Hemoglobin (Bld) [Mass/Vol] 13.1 g/dL Normal 11.5-15.5 [facility] Comment on above: Order Comment: Speci men Type: BLOOD SPECIMENOrdering Facility: [facility] Address: [address] [place] [address] Performed By: #### 5 8410-2 ####[facility] [id number] [place] [address] [place] MCH (RBC) [Entitic mass] 30.0 pg Normal 26.0-34.0 [facility] Comment on above: Order Comment: Speci men Type: BLOOD SPECIMENOrdering Facility: [facility] Address: [address] [place] [address] Performed By: #### 5 8410-2 ####[facility] [id number] [place] [address] [place] MCHC (RBC) [Mass/Vol] 33.2 g/dL Normal 30.5-36.0 [facility] Comment on above: Order Comment: Speci men Type: BLOOD SPECIMENOrdering Facility: [facility] Address: [address] [place] [address] Performed By: #### 5 8410-2 ####[facility] [id number] [place] [address] [place] MCV (RBC) [Entitic vol] 90.4 fL Normal 80.0-100.0 [facility] Comment on above: Order Comment: Speci men Type: BLOOD SPECIMENOrdering Facility: [facility] Address: [address] [place] [address] Performed By: #### 5 8410-2 ####[facility] [id number] [place] [address] [place] Nucleated RBC (Bld) [#/Vol] 10*3/uL Normal <0.01 [facility] Comment on above: Order Comment: Speci men Type: BLOOD SPECIMENOrdering Facility: [facility] Address: [address] [place] [address] Performed By: #### 5 8410-2 ####[facility] [id number] [place] [address] [place] Platelet mean volume (Bld) [Entitic vol] 10.5 fL Normal 9.0-12.7 [facility] Comment on above: Order Comment: Speci men Type: BLOOD SPECIMENOrdering Facility: [facility] Address: [address] [place] [address] Performed By: #### 5 8410-2 ####[facility] [id number] [place] [address] [place] Platelets (Bld) [#/Vol] 192 10*3/uL Normal 150-400 [facility] Comment on above: Order Comment: Speci men Type: BLOOD SPECIMENOrdering Facility: [facility] Address: [address] [place] [address] Performed By: #### 5 8410-2 ####[facility]IA [id number] [place] [address] [place] RBC (Bld) [#/Vol] 4.36 10*6/uL Normal 3.90-5.20 [facility] Comment on above: Order Comment: Speci men Type: BLOOD SPECIMENOrdering Facility: [facility] Address: [address] [place] [address] Performed By: #### 5 8410-2 ####[facility]IA [id number] [place] [address] [place] WBC (Bld) [#/Vol] 8.00 10*3/uL Normal 3.70-11.00 [facility] Comment on above: Order Comment: Speci men Type: BLOOD SPECIMENOrdering Facility: [facility] Address: [address] [place] [address] Performed By: #### 5 8410-2 ####[facility] [id number] [place] [address] [place] CT FLANK WO IVCONon 08-29-[address] FLANK WO IVCON * * *Final Report* * * DATE OF EXAM: Aug 29 2023 2:54PM [facility] [id number] - CT FLANK WO IVCON / [...] thorax: Cardiomegaly. Minimal left basilar subsegmental atelectasis [place] Turner (topogram) images: Unremarkable. IMPRESSION: No urinary tract calculi. No acute findings in the abdomen or pelvis. Increased size of RIGHT adnexal/ovarian cystic lesion, which at discretion this could be further characterized with ultrasound. ACTIONABLE RESULT: FOLLOW-UP Acuity: Actionable Findings: Female reproductive tract (pelvis, adnexa) Routing code: WH_1 Recommendation: US FEMALE PELVIS NON-OB NON TORSION ([id number]) Time Frame: At the discretion of the clinical team. COMMUNICATION: Results will be communicated with the ordering provider via [employer] staff message or phone message by [employer] within 2 business days of report finalization. --END OF FINDING-- Form Tamper: LILIANA Transcribe Date/Time: Rodrigue 16 2024 2:57P Dictated by : NITZA CARUSO MD This examination was interpreted and the report reviewed and electronically signed by: MIGEL CARRION MD on Aug 29 2023 4:39PM EST [id number] ACTIONABLE Invalid Interpretation Code [facility] metabolic 2000 panelon 08-29-2023 Albumin [Mass/Vol] 3.9 g/dL Normal 3.9-4.9 [facility] Comment on above: Order Comment: Speci men Type: BLOOD SPECIMENOrdering Facility: [facility] Address: [address] [place] [address] Performed By: #### 1 9123-9, 99228-6 ####[facility] [id number] [place] [address] [place] ALP [Catalytic activity/Vol] 58 U/L Normal 34-123 [facility] Comment on above: Order Comment: Speci men Type: BLOOD SPECIMENOrdering Facility: [facility] Address: [address] [place] [address] Performed By: #### 1 9123-9, 28574-3 ####[facility]CLIA [id number] [place] [address] [place] ALT [Catalytic activity/Vol] 33 U/L Normal 7-38 [facility] Comment on above: Order Comment: Speci men Type: BLOOD SPECIMENOrdering Facility: [facility] Address: [address] [place] [address] Performed By: #### 1 9123-9, 12639-7 ####[facility]IA [id number] [place] [address] [place] Anion gap [Moles/Vol] 10 mmol/L Normal 9-18 [facility] Comment on above: Order Comment: Speci men Type: BLOOD SPECIMENOrdering Facility: [facility] Address: [address] [place] [address] Performed By: #### 1 9123-9, 60124-1 ####[facility]CLIA [id number] [place] [address] [place] AST [Catalytic activity/Vol] 25 U/L Normal 13-35 [facility] Comment on above: Order Comment: Speci men Type: BLOOD SPECIMENOrdering Facility: [facility] Address: [address] [place] [address] Performed By: #### 1 9123-9, 42363-9 ####[facility] [id number] [place] [address] [place] Bilirubin [Mass/Vol] 0.7 mg/dL Normal 0.2-1.3 [facility] Comment on above: Order Comment: Speci men Type: BLOOD SPECIMENOrdering Facility: [facility] Address: [address] [place] [address] Performed By: #### 1 9123-9, 78390-0 ####[facility]CL[facility] [id number] [place] [address] [place] Calcium [Mass/Vol] 9.0 mg/dL Normal 8.5-10.2 [facility] Comment on above: Order Comment: Speci men Type: BLOOD SPECIMENOrdering Facility: [facility] Address: [address] [place] [address] Performed By: #### 1 9123-9, ####[facility] [id number] [place] [address] [place] Chloride [Moles/Vol] 101 mmol/L Normal 97-105 [facility] Comment on above: Order Comment: Speci men Type: BLOOD SPECIMENOrdering Facility: [facility] Address: [address] [place] [address] Performed By: #### 1 9123-9, 01134-5 ####[facility] [id number] [place] [address] [place] CO2 [Moles/Vol] 25 mmol/L Normal 22-30 [facility] Comment on above: Order Comment: Speci men Type: BLOOD SPECIMENOrdering Facility: [facility] Address: [address] [place] [address] Performed By: #### 1 9123-9, ####[facility] [id number] [place] [address] [place] Creatinine [Mass/Vol] 0.87 mg/dL Normal 0.58-0.96 [facility] Comment on above: Order Comment: Speci men Type: BLOOD SPECIMENOrdering Facility: [facility] Address: [address] [place] [address] Performed By: #### 1 9123-9, ####[facility]IA [id number] [place] [address] [place] Creatinine and Glomerular filtration rate.predicted panel (S/P/Bld) 70 mL/min/1.73m??? Normal >=60 [facility] Comment on above: Order Comment: Speci men Type: BLOOD SPECIMENOrdering Facility: [facility] Address: [address] [place] [address] Result Comment: Shelley mated Glomerular Filtration Rate [...] actual GFR. Performed By: #### 1 9123-9, ####[facility] [id number] [place] [address] [place] Glucose [Mass/Vol] 85 mg/dL Normal 74-99 [facility] Comment on above: Order Comment: Speci men Type: BLOOD SPECIMENOrdering Facility: [facility] Address: [address] [place] [address] Result Comment: The [place] Diabetes Association (ADA) provides guidance for cutoff [...] Standards of Medical Care in Diabetes 2016, [place] [employer] Association. Diabetes Care. 2016.39(Suppl 1). Performed By: #### 1 9123-9, ####[facility] [id number] [place] [address] [place] Potassium [Moles/Vol] 4.7 mmol/L Normal 3.7-5.1 [facility] Comment on above: Order Comment: Speci men Type: BLOOD SPECIMENOrdering Facility: [facility] Address: [address] [place] [address] Performed By: #### 1 9123-9, ####[facility] [id number] [place] [address] [place] Protein [Mass/Vol] 6.3 g/dL Normal 6.3-8.0 [facility] Comment on above: Order Comment: Speci men Type: BLOOD SPECIMENOrdering Facility: [facility] Address: [address] [place] [address] Performed By: #### 1 23-9, ####[facility] [id number] [place] [address] [place] Sodium [Moles/Vol] 136 mmol/L Normal 136-144 [facility] Comment on above: Order Comment: Speci men Type: BLOOD SPECIMENOrdering Facility: [facility] Address: [address] [place] [address] Performed By: #### 1 239, ####[facility] [id number] [place] [address] [place] Urea nitrogen [Mass/Vol] 15 mg/dL Normal 7-21 [facility] Comment on above: Order Comment: Speci men Type: BLOOD SPECIMENOrdering Facility: [facility] Address: [address] [place] [address] Performed By: #### 1 9123-9, 16457-1 ####[facility] [id number] [place] [id number] [place] DIGOXIN/LANOXINon 08-29-2023 Digoxin [Mass/Vol] 1.0 ng/mL Normal 0.6-1.2 [facility] Comment on above: Order Comment: Speci men Type: BLOOD SPECIMEN [facility] Address: [address] [place] [address] Result Comment: Prov ided therapeutic concentrations are based on the 2008 ESC Guidelines for the Diagnosis and Treatment of Acute and Chronic Heart Failure. Reference ranges and high/low indicator flags are provided as general guidelines only. The treating physician must determine appropriate target levels/dosing based on the specific clinical situation. Performed By: #### 2 4323-8, 60358-2 #### [facility] CLIA [id number] [place] [address] [place] Magnesium SerPl-mCncon 08-29 Magnesium [Mass/Vol] 2.2 mg/dL Normal 1.7-2.3 [facility] Comment on above: Order Comment: Speci men Type: BLOOD SPECIMENOrdering Facility: [facility] Address: [address] [place] [address] Performed By: #### 1 9123-9, 75151-6 ####[facility] [id number] [place] [id number] [place] NUTRITIONon 08-29-2023 NUTRITION HNO ID: [id number] Author: KARINA HOLLY DTR Service: Nutrition Therapy Author Type: Torch Operator Type: Nutrition Filed: 08/29/2023 13:57 Note Text: NUTRITION THERAPY CLINICAL CYTOGENETICS DIRECTOR NOTE SERVICE DATE: 08/29/2023 SERVICE TIME: 1200 [...] some. Egg allergy has been added in [employer] and has interfaced in [employer]. ROCÍO Brown was informed. MNT Billing: $ Routine Care : 1-15 minutes SIGNATURE: Karina Holly DTR PATIENT NAME: Asya Asencio DATE: August 29, 2023 TIME: 1:52 PM Normal [facility] THYROID PEROXIDASE ANTIBODY BLOODon 08-29-2023 TPO Ab Qn [IU]/mL Normal <5.6 [facility] Comment on above: Order Comment: Speci men Type: BLOOD SPECIMENOrdering Facility: [facility] Address: [address] [place] [address] Result Comment: Thyr oid Peroxidase Antibody test is used as an aid in diagnosis of autoimmune thyroid disease. Clinical correlation is required. Performed By: #### M ICRO ####[facility]CLIA [id number] [facility] [id number] [address] [place] ANES POSTPROC EVALon 024 ANES POSTPROC EVAL HNO ID: [id number] Author: ANNELISE CLEMONS MD Service: ? Author Type: Anesthesiologist Type: Anesthesia Postprocedure Evaluation Filed: 08/28/2023 18:34 Note Text: POST ANESTHESIA EVALUATION NOTE : 1950 Procedure Summary Date: 08/28/23 Room / Location: [address] Anesthesia Start: 1823 Anesthesia Stop: 1833 [...] August 28, 2023 TIME: 6:34 PM CSN: [id number] Normal [facility] ANES PRE-OPon 08-28-2023 ANES PRE-OP HNO ID: [id number] Author: ANNELISE CLEMONS MD Service: ? Author Type: Anesthesiologist Type: Anesthesia Preprocedure Evaluation Filed: 08/28/2023 18:26 Note Text: ANESTHESIOLOGY DAY OF SURGERY NOTE : 1950 Procedure Information Date/Time: 08/28/231704 Procedure: CARDIOVERSION EXTERNAL ELECTIVE Location: [facility] Surgeons: Lorenza Jackson MD Estimated [...] and consent discussed: yes. Patient / Responsible Constitution Party agrees to proceed: yes Patient / Surrogate [...] August 28, 2023 TIME: 6:26 PM CSN: [id number] Normal [facility] CBC panel Auto (Bld)on 08-28 Erythrocyte distribution width (RBC) [Ratio] 13.1 % Normal 11.5-15.0 [facility] Comment on above: Order Comment: Nichole becerra Type: BLOOD SPECIMENOrdering Facility: [facility] Address: [address] [place] [address] Performed By: #### 5 8410-2 ####[facility]IA [id number] [place] [address] [place] Hematocrit (Bld) [Volume fraction] 37.8 % Normal 36.0-46.0 [facility] Comment on above: Order Comment: Nichole becerra Type: BLOOD SPECIMENOrdering Facility: [facility] Address: [address] [place] [address] Performed By: #### 5 8410-2 ####[facility]IA [id number] [place] [address] [place] Hemoglobin (Bld) [Mass/Vol] 12.3 g/dL Normal 11.5-15.5 [facility] Comment on above: Order Comment: Nichole becerra Type: BLOOD SPECIMENOrdering Facility: [facility] Address: [address] [place] [address] Performed By: #### 5 8410-2 ####[facility]IA [id number] [place] [address] [place] MCH (RBC) [Entitic mass] 29.5 pg Normal 26.0-34.0 [facility] Comment on above: Order Comment: Speci men Type: BLOOD SPECIMENOrdering Facility: [facility] Address: [address] [place] [address] Performed By: #### 5 8410-2 ####[facility]IA [id number] [place] [address] [place] MCHC (RBC) [Mass/Vol] 32.5 g/dL Normal 30.5-36.0 [facility] Comment on above: Order Comment: Speci men Type: BLOOD SPECIMENOrdering Facility: [facility] Address: [address] [place] [address] Performed By: #### 5 8410-2 ####[facility]IA [id number] [place] [address] [place] MCV (RBC) [Entitic vol] 90.6 fL Normal 80.0-100.0 [facility] Comment on above: Order Comment: Speci men Type: BLOOD SPECIMENOrdering Facility: [facility] Address: [address] [place] [address] Performed By: #### 5 8410-2 ####[facility]IA [id number] [place] [address] [place] Nucleated RBC (Bld) [#/Vol] 10*3/uL Normal <0.01 [facility] Comment on above: Order Comment: Speci men Type: BLOOD SPECIMENOrdering Facility: [facility] Address: [address] [place] [address] Performed By: #### 5 8410-2 ####[facility]IA [id number] [place] [address] [place] Platelet mean volume (Bld) [Entitic vol] 10.4 fL Normal 9.0-12.7 [facility] Comment on above: Order Comment: Speci men Type: BLOOD SPECIMENOrdering Facility: [facility] Address: [facility] [place] [address] Performed By: #### 5 8410-2 ####[facility]CLIA [id number] [place] [address] [place] Platelets (Bld) [#/Vol] 180 10*3/uL Normal 150-400 [facility] Comment on above: Order Comment: Speci men Type: BLOOD SPECIMENOrdering Facility: [facility] Address: [address] [place] [address] Performed By: #### 5 8410-2 ####[facility]IA [id number] [place] [address] [place] RBC (Bld) [#/Vol] 4.17 10*6/uL Normal 3.90-5.20 [facility] Comment on above: Order Comment: Speci men Type: BLOOD SPECIMENOrdering Facility: [facility] Address: [address] [place] [address] Performed By: #### 5 8410-2 ####[facility] LABIA [id number] [place] [address] [place] WBC (Bld) [#/Vol] 6.22 10*3/uL Normal 3.70-11.00 [facility] Comment on above: Order Comment: Speci men Type: BLOOD SPECIMENOrdering Facility: [facility] Address: [address] [place] [address] Performed By: #### 5 8410-2 ####[facility] LABIA [id number] [address] [place] CNOVon 08-28-2023 CNOV Office Visit (CAFN ) ASYA ASENCIO I ([id number]) 1950 F Date Time Provider Department 08/28/23 [...] Status:Closed by NAA LONDONO on 08/28/23 Normal [facility] CONSULTon 08-28-2023 CONSULT HNO ID: [id number] Author: GERMAINE CHOW MD Service: Psychiatry Author Type: Physician Type: Consults Filed: 08/29/2023 17:28 Note Text: PSYCHIATRY CONSULT SERVICE MEDICAL STUDENT INITIAL CONSULT NOTE DAY TIME COVERAGE: Between 8AM to 5PM, page [phone] NIGHT AND WEEKEND COVERAGE: After hours (5PM to 8AM) and weekends, page [phone] SERVICE DATE: August 28, 2023 SERVICE TIME: [...] is a 73 year old female from [place], [place]. History of Present Illness: Ms. Asencio [...] to manage it. She presented to the [facility] on 08/24 after a visit w/ [...] from her colorectal surgeon, which was the [facility]. In addition to her anxiety, voiding, [...] the pas (more content not included)... Normal [facility] Comprehensive metabolic 2000 panelon 08-28-2023 Albumin [Mass/Vol] 3.5 g/dL Low 3.9-4.9 [facility] Comment on above: Order Comment: Speci men Type: BLOOD SPECIMENOrdering Facility: [facility] Address: [address] [place] [address] Performed By: #### 2 4323-8, 3024-7 ####[facility]IA [id number] [place] [address] [place] ALP [Catalytic activity/Vol] 52 U/L Normal 34-123 [facility] Comment on above: Order Comment: Speci men Type: BLOOD SPECIMENOrdering Facility: [facility] Address: [address] [place] [address] Performed By: #### 2 4323-8, 7 ####[facility]CLIA [id number] [place] [address] [place] ALT [Catalytic activity/Vol] 31 U/L Normal 7-38 [facility] Comment on above: Order Comment: Speci men Type: BLOOD SPECIMENOrdering Facility: [facility] Address: [address] [place] [address] Performed By: #### 2 4323-8, 7 ####[facility]CLIA [id number] [place] [address] [place] Anion gap [Moles/Vol] 10 mmol/L Normal 9-18 [facility] Comment on above: Order Comment: Speci men Type: BLOOD SPECIMENOrdering Facility: [facility] Address: [address] [place] [address] Performed By: #### 2 4323-8, 7 ####[facility]CLIA [id number] [place] [address] [place] AST [Catalytic activity/Vol] 26 U/L Normal 13-35 [facility] Comment on above: Order Comment: Speci men Type: BLOOD SPECIMENOrdering Facility: [facility] Address: [address] [place] [address] Performed By: #### 2 4323-8, 7 ####[facility]CLIA [id number] [place] [id number] [place] Bilirubin [Mass/Vol] 0.5 mg/dL Normal 0.2-1.3 [facility] Comment on above: Order Comment: Speci men Type: BLOOD SPECIMENOrdering Facility: [facility] Address: [address] [place] [id number] Performed By: #### 2 4323-8, 7 ####[facility] LABCLIA [id number] [address] [address] [place] Calcium [Mass/Vol] 9.5 mg/dL Normal 8.5-10.2 [facility] Comment on above: Order Comment: Speci men Type: BLOOD SPECIMENOrdering Facility: [facility] Address: [address] [place] [address] Performed By: #### 2 432-8, 3024-02 ####[facility] LABCLIA [id number] [place] [address] [place] Chloride [Moles/Vol] 106 mmol/L High 97-105 [facility] Comment on above: Order Comment: Speci men Type: BLOOD SPECIMENOrdering Facility: [facility] Address: [address] [place] [address] Performed By: #### 2 4323-8, 3024-02 ####[facility] [id number] [place] [address] [place] CO2 [Moles/Vol] 24 mmol/L Normal 22-30 [facility] Comment on above: Order Comment: Speci men Type: BLOOD SPECIMENOrdering Facility: [facility] Address: [address] [place] [address] Performed By: #### 2 4323-8, 7 ####[facility] LABCLIA [id number] [place] [id number] [place] Creatinine [Mass/Vol] 0.75 mg/dL Normal 0.58-0.96 [facility] Comment on above: Order Comment: Speci men Type: BLOOD SPECIMENOrdering Facility: [facility] Address: [address] [id number] Performed By: #### 2 4323-8, 7 ####[facility] LABCLIA [id number] [place] [address] [place] Creatinine and Glomerular filtration rate.predicted panel (S/P/Bld) 83 mL/min/1.73m??? Normal >=60 [facility] Comment on above: Order Comment: Nichole becerra Type: BLOOD SPECIMENOrdering Facility: [facility] Address: [address] [place] [address] Result Comment: Shelley mated Glomerular Filtration Rate [...] GFR. Performed By: #### 2 4323-8, 302-7 ####[facility] [id number] [place] [address] [place] Glucose [Mass/Vol] 88 mg/dL Normal 74-99 [facility] Comment on above: Order Comment: Nichole becerra Type: BLOOD SPECIMENOrdering Facility: [facility] Address: [address] [place] [address] Result Comment: The [place] Diabetes Association (ADA) provides guidance for cutoff [...] Standards of Medical Care in Diabetes 2016, [place] [employer]. Diabetes Care. 2016.39(Suppl 1). Performed By: #### 2 4323-8, 3024-7 ####[facility] LABCLIA [id number] [place] [address] [place] Potassium [Moles/Vol] 4.6 mmol/L Normal 3.7-5.1 [facility] Comment on above: Order Comment: Speci men Type: BLOOD SPECIMENOrdering Facility: [facility] Address: [address] [place] [address] Performed By: #### 2 4323-8, 7 ####[facility] [id number] [place] [address] [place] Protein [Mass/Vol] 5.9 g/dL Low 6.3-8.0 [facility] Comment on above: Order Comment: Speci men Type: BLOOD SPECIMENOrdering Facility: [facility] Address: [address] [place] [address] Performed By: #### 2 4323-8, 7 ####[facility]CLIA [id number] [place] [address] [place] Sodium [Moles/Vol] 140 mmol/L Normal 136-144 [facility] Comment on above: Order Comment: Speci men Type: BLOOD SPECIMENOrdering Facility: [facility] Address: [address] [place] [address] Performed By: #### 2 4323-8, 7 ####[facility]CLIA [id number] [place] [address] [place] Urea nitrogen [Mass/Vol] 13 mg/dL Normal 7-21 [facility] Comment on above: Order Comment: Speci men Type: BLOOD SPECIMENOrdering Facility: [facility] Address: [address] [place] [address] Performed By: #### 2 4323-8, 3023-7 ####[facility] LABCLIA [id number] [place] [id number] [place] [id number] 08-28-2023 ECG01 Ventricular Rate : 6 1 BPM Atrial Rate : 416 BPM QRS Duration : 86 ms Q-T Interval : 324 ms QTC Calculation(Bazett) : 326 ms Calculated R Tillar : 82 degrees Calculated T Tillar : 20 degrees ATRIAL FLUTTER WITH VARIABLE A-V CONDUCTION ABNORMAL ECG Confirmed by fellow ZIGGY CRUZ MD ([id number]) on 09/04/2023 1:50:09 PM Confirmed by MD DEJUAN, PhD, KHUSHI ([id number]) on 09/11/2023 1:23:32 PM NAME : ASYA ASENCIO PID : [id number] : 1950 Gender : Female Race : ORD : Procedure Date : Aug 28 2023 18:02:48 Edit Date : Sep 11 2023 13:23:36 Diagnosis: ATRIAL FLUTTER WITH VARIABLE A-V CONDUCTION ABNORMAL ECG Confirmed by fellow ZIGGY CRUZ MD ([id number]) on 09/04/2023 1:50:09 PM Confirmed by MD DEJUAN, PhD, KHUSHI ([id number]) on 09/11/2023 1:23:32 PM Test Reason : Location : [address] Overread By : MD DEJUAN, PhD,KHUSHI Edited By : MD DEJUAN, PhD,KHUSHI Referred By : , Acquired by : [id number], Normal [facility] ECHO TRANSESOPHAGEALon 08-28 ECHO TRANSESOPHAGEAL Echocardiography Report: Transesophageal Echo [facility] J1-5 Date of service: 08/28/2023 3:59:19 PM MAN Ordering physician: VIRY ROLLINS Indication: Pre Cardioversion, [...] * * * Final * * * [employer] : [id number] amicsSISUID Normal [facility] NURSING PROGon 08-28-2023 NURSING PROG HNO ID: [id number] Author: GISELLE SANTANA RN Service: ? Author [...] Giselle Santana RN In Department: CARDIOLOGY Normal [facility] PT EDon 08-28-2023 PT ED HNO ID: [id number] Author: INA ISERRA RN Service: ? Author Type: Registered Nurse [...] discussed with Physician, nurse practitioner or Physician pharmacy technician assistant upon discharge Instructions for transmitting EKG to Monitoring Center 3 month follow up instructions Contact number for information and questions Patient Evaluation: Verbalizes understanding Follow Up Plan: Follow up as needed Supplemental Material Given: None Instructed By Ina Sierra RN. In Department of SXS328. Normal [facility] PT ED HNO ID: [id number] Author: MARGARET MARCELINO RN Service: Nursing Author [...] By Margaret Marcelino RN. In Department of DGW545. [facility] T4 Free SerPl-mCncon 024 Free T4 [Mass/Vol] 1.1 ng/dL Normal 0.9-1.7 [facility] Comment on above: Order Comment: Speci men Type: BLOOD SPECIMENOrdering Facility: [facility] Address: [address] [place] [address] Performed By: #### 2 4323-8, 3024-7 ####[facility]CLIA [id number] [place] [address] [place] CBC panel Auto (Bld)on 08-27 Erythrocyte distribution width (RBC) [Ratio] 12.8 % Normal 11.5-15.0 [facility] Comment on above: Order Comment: Speci men Type: BLOOD SPECIMEN [facility] Address: [address] [place] [address] Performed By: #### 2 4323-8, 22321-3 #### [facility] CLIA [id number] [address] [place] [address] [place] Hematocrit (Bld) [Volume fraction] 38.9 % Normal 36.0-46.0 [facility] Comment on above: Order Comment: Speci men Type: BLOOD SPECIMEN [facility] Address: [address] [place] [address] Performed By: #### 2 4323-8, 08370-7 #### [facility] CLIA [id number] [address] [place] [address] [place] Hemoglobin (Bld) [Mass/Vol] 12.7 g/dL Normal 11.5-15.5 [facility] Comment on above: Order Comment: Speci men Type: BLOOD SPECIMEN [facility] Address: [address] [place] [address] Performed By: #### 2 4323-8, 52852-8 #### [facility] CLIA [id number] [address] [place] [address] [place] MCH (RBC) [Entitic mass] 29.4 pg Normal 26.0-34.0 [facility] Comment on above: Order Comment: Speci men Type: BLOOD SPECIMEN [facility] Address: [address] [place] [address] Performed By: #### 2 4323-8, 81496-9 #### [facility] CLIA [id number] [address] [place] [address] [place] MCHC (RBC) [Mass/Vol] 32.6 g/dL Normal 30.5-36.0 [facility] Comment on above: Order Comment: Speci men Type: BLOOD SPECIMEN [facility] Address: [address] [place] [address] Performed By: #### 2 4323-8, 76107-0 #### [facility] CLIA [id number] [address] [place] [address] [place] MCV (RBC) [Entitic vol] 90.0 fL Normal 80.0-100.0 [facility] Comment on above: Order Comment: Speci men Type: BLOOD SPECIMEN [facility] Address: [address] [place] [address] Performed By: #### 2 4323-8, 13032-4 #### [facility] CLIA [id number] [address] [place] [address] [place] Nucleated RBC (Bld) [#/Vol] 10*3/uL Normal <0.01 [facility] Comment on above: Order Comment: Speci men Type: BLOOD SPECIMEN [facility] Address: [address] [place] [address] Performed By: #### 2 4323-8, 17723-3 #### [facility] CLIA [id number] [address] [place] [address] [place] Platelet mean volume (Bld) [Entitic vol] 10.4 fL Normal 9.0-12.7 [facility] Comment on above: Order Comment: Speci men Type: BLOOD SPECIMEN [facility] Address: [address] [place] [address] Performed By: #### 2 4323-8, 24012-8 #### [facility] CLIA [id number] [address] [place] [address] [place] Platelets (Bld) [#/Vol] 143 10*3/uL Low 150-400 [facility] Comment on above: Order Comment: Speci men Type: BLOOD SPECIMEN [facility] Address: [address] [place] [address] Performed By: #### 2 4323-8, 69421-9 #### [facility] CLIA [id number] [address] [place] [address] [place] RBC (Bld) [#/Vol] 4.32 10*6/uL Normal 3.90-5.20 [facility] Comment on above: Order Comment: Speci men Type: BLOOD SPECIMEN [facility] Address: [address] [place] [address] Performed By: #### 2 4323-8, 67218-2 #### [facility] CLIA [id number] [address] [place] [address] [place] WBC (Bld) [#/Vol] 5.61 10*3/uL Normal 3.70-11.00 [facility] Comment on above: Order Comment: Speci men Type: BLOOD SPECIMEN [facility] Address: [address] [place] [address] Performed By: #### 2 4323-8, 20641-7 #### [facility] CLIA [id number] [address] [place] [address] [place] Comprehensive metabolic 2000 panelon 08-27-2023 Albumin [Mass/Vol] 3.6 g/dL Low 3.9-4.9 [facility] Comment on above: Order Comment: Speci men Type: BLOOD SPECIMENOrdering Facility: [facility] Address: [address] [place] [address] Performed By: #### 2 4323-8, 3016-3 ####[facility] LABCLIA [id number] [place] [address] [place] ALP [Catalytic activity/Vol] 59 U/L Normal 34-123 [facility] Comment on above: Order Comment: Speci men Type: BLOOD SPECIMENOrdering Facility: [facility] Address: [address] [place] [address] Performed By: #### 2 4323-8, 6-3 ####[facility]CLIA [id number] [place] [address] [place] ALT [Catalytic activity/Vol] 29 U/L Normal 7-38 [facility] Comment on above: Order Comment: Speci men Type: BLOOD SPECIMENOrdering Facility: [facility] Address: [address] [place] [address] Performed By: #### 2 4323-8, 3015-3 ####[facility] LABCLIA [id number] [place] [address] [place] Anion gap [Moles/Vol] 8 mmol/L Low 9-18 [facility] Comment on above: Order Comment: Speci men Type: BLOOD SPECIMENOrdering Facility: [facility] Address: [address] [place] [address] Performed By: #### 2 4323-8, 6-3 ####[facility] LABCLIA [id number] [place] [address] [place] AST [Catalytic activity/Vol] 27 U/L Normal 13-35 [facility] Comment on above: Order Comment: Speci men Type: BLOOD SPECIMENOrdering Facility: [facility] Address: [address] [place] [address] Performed By: #### 2 4323-8, 6-3 ####[facility] LABCLIA [id number] [place] [id number] [place] Bilirubin [Mass/Vol] 0.5 mg/dL Normal 0.2-1.3 [facility] Comment on above: Order Comment: Speci men Type: BLOOD SPECIMENOrdering Facility: [facility] Address: [address] [place] [address] Performed By: #### 2 4323-8, 3016-3 ####[facility]CLIA [id number] [place] [address] [place] Calcium [Mass/Vol] 9.1 mg/dL Normal 8.5-10.2 [facility] Comment on above: Order Comment: Speci men Type: BLOOD SPECIMENOrdering Facility: [facility] Address: [address] [place] [address] Performed By: #### 2 4323-8, 6-3 ####[facility] LABCLIA [id number] [place] [address] [place] Chloride [Moles/Vol] 105 mmol/L Normal 97-105 [facility] Comment on above: Order Comment: Speci men Type: BLOOD SPECIMENOrdering Facility: [facility] Address: [address] [place] [address] Performed By: #### 2 4323-8, 6-3 ####[facility]CLIA [id number] [place] [address] [place] CO2 [Moles/Vol] 27 mmol/L Normal 22-30 [facility] Comment on above: Order Comment: Speci men Type: BLOOD SPECIMENOrdering Facility: [facility] Address: [address] [place] [address] Performed By: #### 2 4323-8, 3016-3 ####[facility] LABCLIA [id number] [place] [address] [place] Creatinine [Mass/Vol] 0.72 mg/dL Normal 0.58-0.96 [facility] Comment on above: Order Comment: Speci men Type: BLOOD SPECIMENOrdering Facility: [facility] Address: [address] [place] [address] Performed By: #### 2 4323-8, 3016-3 ####[facility] LABIA [id number] [place] [address] [place] Creatinine and Glomerular filtration rate.predicted panel (S/P/Bld) 87 mL/min/1.73m??? Normal >=60 [facility] Comment on above: Order Comment: Nichole becerra Type: BLOOD SPECIMENOrdering Facility: [facility] Address: [address] [place] [address] Result Comment: Shelley mated Glomerular Filtration Rate [...] GFR. Performed By: #### 2 4323-8, 3016-3 ####[facility]CLIA [id number] [place] [address] [place] Glucose [Mass/Vol] 92 mg/dL Normal 74-99 [facility] Comment on above: Order Comment: Nichole mariam Type: BLOOD SPECIMENOrdering Facility: [facility] Address: [address] [place] [address] Result Comment: The [place] Diabetes Association (ADA) provides guidance for cutoff [...] Standards of Medical Care in Diabetes 2016, [place] [employer]. Diabetes Care. 2016.39(Suppl 1). Performed By: #### 2 4323-8, 6-3 ####[facility]CL[facility] [id number] [place] [address] [place] Potassium [Moles/Vol] 4.7 mmol/L Normal 3.7-5.1 [facility] Comment on above: Order Comment: Speci men Type: BLOOD SPECIMENOrdering Facility: [facility] Address: [address] [place] [address] Performed By: #### 2 4323-8, 3015-3 ####[facility]CLIA [id number] [place] [address] [place] Protein [Mass/Vol] 5.8 g/dL Low 6.3-8.0 [facility] Comment on above: Order Comment: Speci men Type: BLOOD SPECIMENOrdering Facility: [facility] Address: [address] [place] [address] Performed By: #### 2 4323-8, 3 ####[facility]CLIA [id number] [place] [address] [place] Sodium [Moles/Vol] 140 mmol/L Normal 136-144 [facility] Comment on above: Order Comment: Speci men Type: BLOOD SPECIMENOrdering Facility: [facility] Address: [address] [place] [address] Performed By: #### 2 4323-8, 3 ####[facility] LABCLIA [id number] [address] [address] [place] Urea nitrogen [Mass/Vol] 15 mg/dL Normal 7-21 [facility] Comment on above: Order Comment: Speci men Type: BLOOD SPECIMENOrdering Facility: [facility] Address: [address] [place] [address] Performed By: #### 2 4323-8, 6-3 ####[facility]CLIA [id number] [facility] [place] [address] [place] TSH SerPl-aCncon 08-27-2023 TSH Qn 9.850 m[IU]/L High 0.270-4.200 [facility] Comment on above: Order Comment: Speci men Type: BLOOD SPECIMENOrdering Facility: [facility] Address: [address] [place] [address] Performed By: #### 2 4323-8, 3016-3 ####[facility]CLIA [id number] [place] [address] [place] Bacteria Ur Culton [...] , Intermediate >32 , Resistant >64 Abnormal [facility] Comment on above: Performed By: #### 6 30-4 ####[facility] [id number] [place] [address] [place] CBC panel Auto (Bld)on 08-26 Erythrocyte distribution width (RBC) [Ratio] 13.1 % Normal 11.5-15.0 [facility] Comment on above: Order Comment: Speci men Type: BLOOD SPECIMENOrdering Facility: [facility] Address: [address] [place] [address] Performed By: #### 5 8410-2 ####[facility]CL[facility] [id number] [place] [address] [place] Hematocrit (Bld) [Volume fraction] 38.5 % Normal 36.0-46.0 [facility] Comment on above: Order Comment: Speci men Type: BLOOD SPECIMENOrdering Facility: [facility] Address: [address] [place] [address] Performed By: #### 5 8410-2 ####[facility]CL[facility] [id number] [place] [address] [place] Hemoglobin (Bld) [Mass/Vol] 12.8 g/dL Normal 11.5-15.5 [facility] Comment on above: Order Comment: Speci men Type: BLOOD SPECIMENOrdering Facility: [facility] Address: [address] [place] [address] Performed By: #### 5 8410-2 ####[facility] [id number] [place] [address] [place] MCH (RBC) [Entitic mass] 30.0 pg Normal 26.0-34.0 [facility] Comment on above: Order Comment: Speci men Type: BLOOD SPECIMENOrdering Facility: [facility] Address: [address] [place] [address] Performed By: #### 5 8410-2 ####[facility] [id number] [place] [address] [place] MCHC (RBC) [Mass/Vol] 33.2 g/dL Normal 30.5-36.0 [facility] Comment on above: Order Comment: Speci men Type: BLOOD SPECIMENOrdering Facility: [facility] Address: [address] [place] [address] Performed By: #### 5 8410-2 ####[facility] [id number] [place] [address] [place] MCV (RBC) [Entitic vol] 90.4 fL Normal 80.0-100.0 [facility] Comment on above: Order Comment: Speci men Type: BLOOD SPECIMENOrdering Facility: [facility] Address: [address] [place] [address] Performed By: #### 5 8410-2 ####[facility] [id number] [place] [address] [place] Nucleated RBC (Bld) [#/Vol] 10*3/uL Normal <0.01 [facility] Comment on above: Order Comment: Speci men Type: BLOOD SPECIMENOrdering Facility: [facility] Address: [address] [place] [address] Performed By: #### 5 8410-2 ####[facility] [id number] [place] [address] [place] Platelet mean volume (Bld) [Entitic vol] 10.6 fL Normal 9.0-12.7 [facility] Comment on above: Order Comment: Speci men Type: BLOOD SPECIMENOrdering Facility: [facility] Address: [address] [place] [address] Performed By: #### 5 8410-2 ####[facility] [id number] [place] [address] [place] Platelets (Bld) [#/Vol] 168 10*3/uL Normal 150-400 [facility] Comment on above: Order Comment: Speci men Type: BLOOD SPECIMENOrdering Facility: [facility] Address: [address] [place] [address] Performed By: #### 5 8410-2 ####[facility]IA [id number] [place] [address] [place] RBC (Bld) [#/Vol] 4.26 10*6/uL Normal 3.90-5.20 [facility] Comment on above: Order Comment: Speci men Type: BLOOD SPECIMENOrdering Facility: [facility] Address: [address] [place] [address] Performed By: #### 5 8410-2 ####[facility]IA [id number] [place] [address] [place] WBC (Bld) [#/Vol] 7.27 10*3/uL Normal 3.70-11.00 [facility] Comment on above: Order Comment: Speci men Type: BLOOD SPECIMENOrdering Facility: [facility] Address: [address] [place] [address] Performed By: #### 5 8410-2 ####[facility]IA [id number] [place] [address] [place] CONSULTon 08-26-2023 CONSULT HNO ID: [id number] Author: AMARIS GRACE MD Service: Urology Author Type: Resident Type: Consults Filed: 08/26/2023 16:29 Note Text: Attestation signed by Stefan Kan MD at 08/27/2023 6:02 PM Urology Staff Note: The plan was reviewed with resident and agree with findings, with additions, alterations, and confirmations noted below. Pending UCX. Follow up as noted. Stefan Kan MD Male Genitourinary Reconstruction AND Prosthetic Surgery Fellow FOR[facility], 1928–[facility] UR[facility]Y CONSULT NOTE [...] urethra -Will request outpatient follow up with [facility] provider to evaluate nature of voiding dysfunction, urethral stricture To be discussed with second affiliate Dr. Lucius Grace MD Resident PGY-2 Urology [facility] [place] [facility] Pager [phone] After 5pm and weekends please page Urology donor specialist [id number] 3:37 PM 08/26/2023 AKANKSHA Asencio is a [...] 2012, had urodynamics and was seen by [facility] urology here at [facility] at that time. More recently she has [...] 8 MILA (more content not included)... Normal [facility] Comprehensive metabolic 2000 panelon 08-26-2023 Albumin [Mass/Vol] 3.5 g/dL Low 3.9-4.9 [facility] Comment on above: Order Comment: Speci men Type: BLOOD SPECIMENOrdering Facility: [facility] Address: [address] [place] [address] Performed By: #### 2 4323-8 ####[facility] [id number] [place] [address] [place] ALP [Catalytic activity/Vol] 60 U/L Normal 34-123 [facility] Comment on above: Order Comment: Speci men Type: BLOOD SPECIMENOrdering Facility: [facility] Address: [address] [place] [address] Performed By: #### 2 4323-8 ####[facility] [id number] [place] [address] [place] ALT [Catalytic activity/Vol] 25 U/L Normal 7-38 [facility] Comment on above: Order Comment: Speci men Type: BLOOD SPECIMENOrdering Facility: [facility] Address: [address] [place] [address] Performed By: #### 2 4323-8 ####[facility] [id number] [address] [address] [place] Anion gap [Moles/Vol] 10 mmol/L Normal 9-18 [facility] Comment on above: Order Comment: Speci men Type: BLOOD SPECIMENOrdering Facility: [facility] Address: [address] [place] [address] Performed By: #### 2 4323-8 ####[facility] [id number] [place] [address] [place] AST [Catalytic activity/Vol] 22 U/L Normal 13-35 [facility] Comment on above: Order Comment: Speci men Type: BLOOD SPECIMENOrdering Facility: [facility] Address: [address] [place] [address] Performed By: #### 2 4323-8 ####[facility] [id number] [place] [address] [place] Bilirubin [Mass/Vol] 0.4 mg/dL Normal 0.2-1.3 [facility] Comment on above: Order Comment: Speci men Type: BLOOD SPECIMENOrdering Facility: [facility] Address: [address] [place] [address] Performed By: #### 2 4323-8 ####[facility] [id number] [place] [address] [place] Calcium [Mass/Vol] 8.9 mg/dL Normal 8.5-10.2 [facility] Comment on above: Order Comment: Speci men Type: BLOOD SPECIMENOrdering Facility: [facility] Address: [address] [place] [address] Performed By: #### 2 4323-8 ####[facility] [id number] [place] [id number] [place] Chloride [Moles/Vol] 104 mmol/L Normal 97-105 [facility] Comment on above: Order Comment: Speci men Type: BLOOD SPECIMENOrdering Facility: [facility] Address: [address] [place] [address] Performed By: #### 2 4323-8 ####[facility] [id number] [place] [address] [place] CO2 [Moles/Vol] 26 mmol/L Normal 22-30 [facility] Comment on above: Order Comment: Speci men Type: BLOOD SPECIMENOrdering Facility: [facility] Address: [address] [place] [address] Performed By: #### 2 4323-8 ####[facility] [id number] [place] [address] [place] Creatinine [Mass/Vol] 0.84 mg/dL Normal 0.58-0.96 [facility] Comment on above: Order Comment: Speci men Type: BLOOD SPECIMENOrdering Facility: [facility] Address: [address] [place] [address] Performed By: #### 2 4323-8 ####[facility] [id number] [address] [place] Creatinine and Glomerular filtration rate.predicted panel (S/P/Bld) 73 mL/min/1.73m??? Normal >=60 [facility] Comment on above: Order Comment: Speci men Type: BLOOD SPECIMENOrdering Facility: [facility] Address: [address] [place] [address] Result Comment: Shelley mated Glomerular Filtration Rate [...] actual GFR. Performed By: #### 2 4323-8 ####[facility] LABIA [id number] [place] [id number] [place] Glucose [Mass/Vol] 93 mg/dL Normal 74-99 [facility] Comment on above: Order Comment: Speci men Type: BLOOD SPECIMENOrdering Facility: [facility] Address: [address] [place] [address] Result Comment: The [place] [employer] (ADA) provides guidance for cutoff [...] Standards of Medical Care in Diabetes 2016, [place] [employer]. Diabetes Care. 2016.39(Suppl 1). Performed By: #### 2 4323-8 ####[facility] LABIA [id number] [place] [address] [place] Potassium [Moles/Vol] 4.4 mmol/L Normal 3.7-5.1 [facility] Comment on above: Order Comment: Speci men Type: BLOOD SPECIMENOrdering Facility: [facility] Address: [address] [place] [address] Performed By: #### 2 4323-8 ####[facility] [id number] [place] [id number] [place] Protein [Mass/Vol] 5.7 g/dL Low 6.3-8.0 [facility] Comment on above: Order Comment: Speci men Type: BLOOD SPECIMENOrdering Facility: [facility] Address: [address] [place] [address] Performed By: #### 2 4323-8 ####[facility] [id number] [place] [address] [place] Sodium [Moles/Vol] 140 mmol/L Normal 136-144 [facility] Comment on above: Order Comment: Speci men Type: BLOOD SPECIMENOrdering Facility: [facility] Address: [address] [place] [address] Performed By: #### 2 4323-8 ####[facility] [id number] [place] [address] [place] Urea nitrogen [Mass/Vol] 19 mg/dL Normal 7-21 [facility] Comment on above: Order Comment: Speci men Type: BLOOD SPECIMENOrdering Facility: [facility] Address: [address] [place] [address] Performed By: #### 2 4323-8 ####[facility] [id number] [place] [address] [place] CBC panel Auto (Bld)on 08-25 Erythrocyte distribution width (RBC) [Ratio] 12.9 % Normal 11.5-15.0 [facility] Comment on above: Order Comment: Speci men Type: BLOOD SPECIMEN [facility] Address: [address] [place] [address] Performed By: #### 2 4323-8, 29104-3 #### [facility] CLIA [id number] [address] [place] [address] [place] Hematocrit (Bld) [Volume fraction] 37.8 % Normal 36.0-46.0 [facility] Comment on above: Order Comment: Speci men Type: BLOOD SPECIMEN [facility] Address: [address] [place] [address] Performed By: #### 2 4323-8, 58600-5 #### [facility] CLIA [id number] [address] [place] [address] [place] Hemoglobin (Bld) [Mass/Vol] 12.8 g/dL Normal 11.5-15.5 [facility] Comment on above: Order Comment: Speci men Type: BLOOD SPECIMEN [facility] Address: [address] [place] [address] Performed By: #### 2 4323-8, 05277-0 #### [facility] CLIA [id number] [address] [place] [address] [place] MCH (RBC) [Entitic mass] 29.9 pg Normal 26.0-34.0 [facility] Comment on above: Order Comment: Speci men Type: BLOOD SPECIMEN [facility] Address: [address] [place] [address] Performed By: #### 2 4323-8, 53696-9 #### [facility] CLIA [id number] [address] [place] [address] [place] MCHC (RBC) [Mass/Vol] 33.9 g/dL Normal 30.5-36.0 [facility] Comment on above: Order Comment: Speci men Type: BLOOD SPECIMEN [facility] Address: [address] [place] [address] Performed By: #### 2 4323-8, 82355-2 #### [facility] CLIA [id number] [address] [place] [address] [place] MCV (RBC) [Entitic vol] 88.3 fL Normal 80.0-100.0 [facility] Comment on above: Order Comment: Speci men Type: BLOOD SPECIMEN [facility] Address: [address] [place] [address] Performed By: #### 2 4323-8, 58231-1 #### [facility] CLIA [id number] [address] [place] [address] [place] Nucleated RBC (Bld) [#/Vol] 10*3/uL Normal <0.01 [facility] Comment on above: Order Comment: Speci men Type: BLOOD SPECIMEN [facility] Address: [address] [place] [address] Performed By: #### 2 4323-8, 98671-0 #### [facility] CLIA [id number] [address] [place] [address] [place] Platelet mean volume (Bld) [Entitic vol] 10.1 fL Normal 9.0-12.7 [facility] Comment on above: Order Comment: Speci men Type: BLOOD SPECIMEN [facility] Address: [address] [place] [address] Performed By: #### 2 4323-8, 59240-7 #### [facility] CLIA [id number] [address] [place] [address] [place] Platelets (Bld) [#/Vol] 173 10*3/uL Normal 150-400 [facility] Comment on above: Order Comment: Speci men Type: BLOOD SPECIMEN [facility] Address: [address] [place] [address] Performed By: #### 2 4323-8, 92888-5 #### [facility] CLIA [id number] [address] [place] [address] [place] RBC (Bld) [#/Vol] 4.28 10*6/uL Normal 3.90-5.20 [facility] Comment on above: Order Comment: Speci men Type: BLOOD SPECIMEN [facility] Address: [address] [place] [address] Performed By: #### 2 4323-8, 79878-5 #### [facility] CLIA [id number] [address] [place] [address] [place] WBC (Bld) [#/Vol] 6.38 10*3/uL Normal 3.70-11.00 [facility] Comment on above: Order Comment: Speci men Type: BLOOD SPECIMEN [facility] Address: [address] [place] [address] Performed By: #### 2 4323-8, 39465-3 #### [facility] CLIA [id number] [address] [place] [address] [place] Comprehensive metabolic 2000 panelon 08-25-2023 Albumin [Mass/Vol] 3.4 g/dL Low 3.9-4.9 [facility] Comment on above: Order Comment: Speci men Type: BLOOD SPECIMEN [facility] Address: [address] [place] [address] Performed By: #### 2 4323-8, 61072-9 #### [facility] CLIA [id number] [address] [place] [address] [place] ALP [Catalytic activity/Vol] 48 U/L Normal 34-123 [facility] Comment on above: Order Comment: Speci men Type: BLOOD SPECIMEN [facility] Address: [address] [place] [address] Performed By: #### 2 4323-8, #### [facility] CLIA [id number] [address] [place] [address] [place] ALT [Catalytic activity/Vol] 26 U/L Normal 7-38 [facility] Comment on above: Order Comment: Speci men Type: BLOOD SPECIMEN [facility] Address: [address] [place] [address] Performed By: #### 2 4323-8, #### [facility] CLIA [id number] [address] [place] [address] [place] Anion gap [Moles/Vol] 10 mmol/L Normal 9-18 [facility] Comment on above: Order Comment: Speci men Type: BLOOD SPECIMEN [facility] Address: [address] [place] [id number] Performed By: #### 2 4323-8, #### [facility] CLIA [id number] [address] [place] [address] [place] AST [Catalytic activity/Vol] 23 U/L Normal 13-35 [facility] Comment on above: Order Comment: Speci men Type: BLOOD SPECIMEN [facility] Address: [address] [place] [address] Performed By: #### 2 432-8, #### [facility] CLIA [id number] [address] [place] [address] [place] Bilirubin [Mass/Vol] 0.9 mg/dL Normal 0.2-1.3 [facility] Comment on above: Order Comment: Speci men Type: BLOOD SPECIMEN [facility] Address: [address] [place] [address] Performed By: #### 2 432-8, #### [facility] CLIA [id number] [address] [place] [address] [place] Calcium [Mass/Vol] 9.0 mg/dL Normal 8.5-10.2 [facility] Comment on above: Order Comment: Speci men Type: BLOOD SPECIMEN [facility] Address: [address] [place] [address] Performed By: #### 2 4323-8, #### [facility] CLIA [id number] [address] [place] [address] [place] Chloride [Moles/Vol] 97 mmol/L Normal 97-105 [facility] Comment on above: Order Comment: Speci men Type: BLOOD SPECIMEN [facility] Address: [address] [place] [address] Performed By: #### 2 4323-8, #### [facility] CLIA [id number] [address] [place] [address] [place] CO2 [Moles/Vol] 29 mmol/L Normal 22-30 [facility] Comment on above: Order Comment: Césari mariam Type: BLOOD SPECIMEN [facility] Address: [address] [place] [address] Performed By: #### 2 4323-8, #### [facility] CLIA [id number] [facility] [place] [address] [place] Creatinine [Mass/Vol] 1.02 mg/dL High 0.58-0.96 [facility] Comment on above: Order Comment: Césari men Type: BLOOD SPECIMEN [facility] Address: [address] [place] [address] Performed By: #### 2 4323-8, #### [facility] CLIA [id number] [address] [place] [address] [place] Creatinine and Glomerular filtration rate.predicted panel (S/P/Bld) 57 mL/min/1.73m??? Low >=60 [facility] Comment on above: Order Comment: Nichole becerra Type: BLOOD SPECIMEN [facility] Address: [address] [place] [address] Result Comment: Shelley mated Glomerular Filtration Rate [...] GFR. Performed By: #### 2 4323-8, #### [facility] CLIA [id number] [address] [place] [address] [place] Glucose [Mass/Vol] 84 mg/dL Normal 74-99 [facility] Comment on above: Order Comment: Speci men Type: BLOOD SPECIMEN [facility] Address: [address] [place] [address] Result Comment: The [place] [employer] (ADA) provides guidance for cutoff [...] Standards of Medical Care in Diabetes 2016, [place] [employer]. Diabetes Care. 2016.39(Suppl 1). Performed By: #### 2 4323-8, #### [facility] CLIA [id number] [address] [place] [address] [place] Potassium [Moles/Vol] 3.4 mmol/L Low 3.7-5.1 [facility] Comment on above: Order Comment: Speci men Type: BLOOD SPECIMEN [facility] Address: [address] [place] [address] Performed By: #### 2 4323-03, #### [facility] CLIA [id number] [address] [place] [address] [place] Protein [Mass/Vol] 5.7 g/dL Low 6.3-8.0 [facility] Comment on above: Order Comment: Speci men Type: BLOOD SPECIMEN [facility] Address: [address] [place] [address] Performed By: #### 2 4323-03, #### [facility] CLIA [id number] [address] [place] [id number] [place] Sodium [Moles/Vol] 136 mmol/L Normal 136-144 [facility] Comment on above: Order Comment: Speci men Type: BLOOD SPECIMEN [facility] Address: [address] [place] [address] Performed By: #### 2 4323-8, 18658-3 #### [facility] CLIA [id number] [address] [place] [address] [place] Urea nitrogen [Mass/Vol] 22 mg/dL High 7-21 [facility] Comment on above: Order Comment: Speci men Type: BLOOD SPECIMEN [facility] Address: [address] [place] [address] Performed By: #### 2 4323-8, 19954-8 #### [facility] CLIA [id number] [address] [place] [address] [place] Magnesium SerPl-mCncon 08-25 Magnesium [Mass/Vol] 2.2 mg/dL Normal 1.7-2.3 [facility] Comment on above: Order Comment: Speci men Type: BLOOD SPECIMEN [facility] Address: [address] [place] [address] Performed By: #### 2 4323-8, 29043-6 #### [facility] CLIA [id number] [address] [place] [address] [place] POTASSIUM BLDon 08-25-2023 Potassium [Moles/Vol] 4.3 mmol/L Normal 3.7-5.1 [facility] Comment on above: Order Comment: Speci men Type: BLOOD SPECIMENOrdering Facility: [facility] Address: [address] [place] [address] Performed By: #### K 1 ####[facility] [id number] [place] [address] [place] US KIDNEY/BLADDERon 08-25-19 [...] Bladder: Normal sonographic appearance. IMPRESSION: NO HYDRONEPHROSIS. Form Tamper: LILIANA Transcribe Date/Time: Aug 25 2023 10:35A Dictated by : NANCY YOUNGBLOOD MD This examination was interpreted and the report reviewed and electronically signed by: NANCY YOUNGBLOOD MD on Aug 25 2023 10:38AM EST [id number] N Normal [facility] CBC W Auto Differential pane l (Bld)on 08-24-2023 Basophils (Bld) [#/Vol] 0.03 10*3/uL Normal <0.11 [facility] Comment on above: Order Comment: Speci men Type: BLOOD SPECIMEN [facility] Address: [address] [place] [address] Performed By: #### 2 4323-8, 36339-9 #### [facility] CLIA [id number] [address] [place] [address] [place] Basophils/100 WBC (Bld) 0.4 % Normal [facility] Comment on above: Order Comment: Speci men Type: BLOOD SPECIMEN [facility] Address: [address] [place] [address] Performed By: #### 2 4323-8, 05574-1 #### [facility] CLIA [id number] [address] [place] [address] [place] Differential cell count method Nom (Bld) Auto Normal [facility] Comment on above: Order Comment: Speci men Type: BLOOD SPECIMEN [facility] Address: [address] [place] [address] Performed By: #### 2 4323-8, 89215-8 #### [facility] CLIA [id number] [address] [place] [address] [place] Eosinophils (Bld) [#/Vol] 0.03 10*3/uL Normal <0.46 [facility] Comment on above: Order Comment: Speci men Type: BLOOD SPECIMEN [facility] Address: [address] [place] [address] Performed By: #### 2 4323-8, 96003-2 #### [facility] CLIA [id number] [address] [place] [address] [place] Eosinophils/100 WBC (Bld) 0.4 % Normal [facility] Comment on above: Order Comment: Speci men Type: BLOOD SPECIMEN [facility] Address: [address] [place] [address] Performed By: #### 2 4323-8, 26020-2 #### [facility] CLIA [id number] [address] [place] [address] [place] Erythrocyte distribution width (RBC) [Ratio] 12.7 % Normal 11.5-15.0 [facility] Comment on above: Order Comment: Speci men Type: BLOOD SPECIMEN [facility] Address: [address] [place] [address] Performed By: #### 2 4323-8, 53369-6 #### [facility] CLIA [id number] [address] [place] [address] [place] Hematocrit (Bld) [Volume fraction] 40.4 % Normal 36.0-46.0 [facility] Comment on above: Order Comment: Speci men Type: BLOOD SPECIMEN [facility] Address: [address] [place] [address] Performed By: #### 2 4323-8, 56981-5 #### [facility] CLIA [id number] [address] [place] [address] [place] Hemoglobin (Bld) [Mass/Vol] 13.2 g/dL Normal 11.5-15.5 [facility] Comment on above: Order Comment: Speci men Type: BLOOD SPECIMEN [facility] Address: [address] [place] [address] Performed By: #### 2 4323-8, 46898-4 #### [facility] CLIA [id number] [address] [place] [address] [place] Immature granulocytes (Bld) [#/Vol] 10*3/uL Normal <0.10 [facility] Comment on above: Order Comment: Speci men Type: BLOOD SPECIMEN [facility] Address: [address] [place] [address] Performed By: #### 2 4323-8, 51587-3 #### [facility] CLIA [id number] [address] [place] [address] [place] Immature granulocytes/100 WBC (Bld) 0.3 % Normal [facility] Comment on above: Order Comment: Speci men Type: BLOOD SPECIMEN [facility] Address: [address] [place] [address] Performed By: #### 2 4323-8, 18743-1 #### [facility] CLIA [id number] [address] [place] [address] [place] Lymphocytes (Bld) [#/Vol] 1.73 10*3/uL Normal 1.00-4.00 [facility] Comment on above: Order Comment: Speci men Type: BLOOD SPECIMEN [facility] Address: [address] [place] [address] Performed By: #### 2 4323-8, 18705-2 #### [facility] CLIA [id number] [address] [place] [address] [place] Lymphocytes/100 WBC (Bld) 23.4 % Normal [facility] Comment on above: Order Comment: Speci men Type: BLOOD SPECIMEN [facility] Address: [address] [place] [address] Performed By: #### 2 4323-8, 90589-7 #### [facility] CLIA [id number] [address] [place] [address] [place] MCH (RBC) [Entitic mass] 29.3 pg Normal 26.0-34.0 [facility] Comment on above: Order Comment: Speci men Type: BLOOD SPECIMEN [facility] Address: [address] [place] [address] Performed By: #### 2 4323-8, 25500-3 #### [facility] CLIA [id number] [address] [place] [address] [place] MCHC (RBC) [Mass/Vol] 32.7 g/dL Normal 30.5-36.0 [facility] Comment on above: Order Comment: Speci men Type: BLOOD SPECIMEN [facility] Address: [address] [place] [address] Performed By: #### 2 4323-8, 16789-9 #### [facility] CLIA [id number] [address] [place] [address] [place] MCV (RBC) [Entitic vol] 89.8 fL Normal 80.0-100.0 [facility] Comment on above: Order Comment: Speci men Type: BLOOD SPECIMEN [facility] Address: [address] [place] [address] Performed By: #### 2 4323-8, 02095-1 #### [facility] CLIA [id number] [address] [place] [address] [place] Monocytes (Bld) [#/Vol] 0.77 10*3/uL Normal <0.87 [facility] Comment on above: Order Comment: Speci men Type: BLOOD SPECIMEN [facility] Address: [address] [place] [address] Performed By: #### 2 4323-8, 13809-9 #### [facility] CLIA [id number] [address] [place] [address] [place] Monocytes/100 WBC (Bld) 10.4 % Normal [facility] Comment on above: Order Comment: Speci men Type: BLOOD SPECIMEN [facility] Address: [address] [place] [address] Performed By: #### 2 4323-8, 11585-8 #### [facility] CLIA [id number] [address] [place] [address] [place] Neutrophils (Bld) [#/Vol] 4.82 10*3/uL Normal 1.45-7.50 [facility] Comment on above: Order Comment: Speci men Type: BLOOD SPECIMEN [facility] Address: [address] [place] [address] Performed By: #### 2 4323-8, 39316-6 #### [facility] CLIA [id number] [address] [place] [address] [place] Neutrophils/100 WBC (Bld) 65.1 % Normal [facility] Comment on above: Order Comment: Speci men Type: BLOOD SPECIMEN [facility] Address: [address] [place] [address] Performed By: #### 2 4323-8, 93566-6 #### [facility] CLIA [id number] [address] [place] [address] [place] Nucleated RBC (Bld) [#/Vol] 10*3/uL Normal <0.01 [facility] Comment on above: Order Comment: Speci men Type: BLOOD SPECIMEN [facility] Address: [address] [place] [address] Performed By: #### 2 4323-8, 35103-8 #### [facility] CLIA [id number] [address] [place] [address] [place] Nucleated RBC/100 WBC (Bld) [Ratio] 0.0 /100 WBC Normal [facility] Comment on above: Order Comment: Speci men Type: BLOOD SPECIMEN Ordering Facility: [facility] Address: [address] [place] [address] Performed By: #### 2 4323-8, 64831-9 #### [facility] CLIA [id number] [address] [place] [address] [place] Platelet mean volume (Bld) [Entitic vol] 10.4 fL Normal 9.0-12.7 [facility] Comment on above: Order Comment: Speci men Type: BLOOD SPECIMEN Ordering Facility: [facility] Address: [address] [place] [address] Performed By: #### 2 4323-8, 32691-4 #### [facility] CLIA [id number] [address] [place] [address] [place] Platelets (Bld) [#/Vol] 201 10*3/uL Normal 150-400 [facility] Comment on above: Order Comment: Speci men Type: BLOOD SPECIMEN Ordering Facility: [facility] Address: [address] [place] [address] Performed By: #### 2 4323-8, 07668-3 #### [facility] CLIA [id number] [address] [place] [address] [place] RBC (Bld) [#/Vol] 4.50 10*6/uL Normal 3.90-5.20 [facility] Comment on above: Order Comment: Speci men Type: BLOOD SPECIMEN Ordering Facility: [facility] Address: [address] [place] [address] Performed By: #### 2 4323-8, 97821-0 #### [facility] CLIA [id number] [address] [place] [address] [place] WBC (Bld) [#/Vol] 7.40 10*3/uL Normal 3.70-11.00 [facility] Comment on above: Order Comment: Speci men Type: BLOOD SPECIMEN Ordering Facility: [facility] Address: [address] [place] [address] Performed By: #### 2 4323-8, 15078-7 #### [facility] CLIA [id number] [address] [place] [address] [place] [facility] CNPN Telephone (HVI) ASYA ASENCIO I ([id number]) 1950 F Date Time Provider Department 08/24/23 MARGARET HAWKINS I During your visit today, we recorded the following information about you: Margaret Hawkins APRN.MICROBIOLOGY LAB ANALYST 08/24/2023 6:29 AM Signed [facility] Inbound Phone Encounter DATE of SERVICE: 08/24/2023 TIME of SERVICE: 6:20 AM Status: Needs follow-up Service/Provider: [facility]/Dr. Sorto Reason for call: Ms. Asencio is [...] attempt to reach their offices. Margaret Hawkins APRN.MICROBIOLOGY LAB ANALYST Date of Resolution: 08/24/2023 Time of Resolution [...] Encounter Status:Closed by MARGARET HAWKINS on 08/24/23 [facility] Telephone (CARCMN) ASYA ASENCIO I ([id number]) 1950 F Date Time Provider Department 08/24/23 [...] heart failure (HCC) [I50.9] Order(s):[facility] REQUEST ([place], [place]) [[id number]] Order #: [id number]: 1 Prescriptions as of 08/24/2023 - apixaban [...] Status:Closed by JUNITO MENDES on 08/24/23 Normal [facility] Comprehensive metabolic 2000 panelon 08-24-2023 Albumin [Mass/Vol] 3.8 g/dL Low 3.9-4.9 [facility] Comment on above: Order Comment: Speci men Type: BLOOD SPECIMENOrdering Facility: [facility] Address: [address] [place] [address] Performed By: #### 2 4323-8 ####[facility] [id number] [place] [address] [place] ALP [Catalytic activity/Vol] 61 U/L Normal 34-123 [facility] Comment on above: Order Comment: Speci men Type: BLOOD SPECIMENOrdering Facility: [facility] Address: [address] [place] [address] Performed By: #### 2 4323-8 ####[facility] [id number] [place] [address] [place] ALT [Catalytic activity/Vol] 34 U/L Normal 7-38 [facility] Comment on above: Order Comment: Speci men Type: BLOOD SPECIMENOrdering Facility: [facility] Address: [address] [place] [address] Performed By: #### 2 4323-8 ####[facility] [id number] [place] [address] [place] Anion gap [Moles/Vol] 8 mmol/L Low 9-18 [facility] Comment on above: Order Comment: Speci men Type: BLOOD SPECIMENOrdering Facility: [facility] Address: [address] [place] [address] Performed By: #### 2 4323-8 ####[facility] [id number] [place] [address] [place] AST [Catalytic activity/Vol] 27 U/L Normal 13-35 [facility] Comment on above: Order Comment: Speci men Type: BLOOD SPECIMENOrdering Facility: [facility] Address: [address] [place] [address] Performed By: #### 2 4323-8 ####[facility] [id number] [place] [address] [place] Bilirubin [Mass/Vol] 0.7 mg/dL Normal 0.2-1.3 [facility] Comment on above: Order Comment: Speci men Type: BLOOD SPECIMENOrdering Facility: [facility] Address: [address] [place] [address] Performed By: #### 2 4323-8 ####[facility] [id number] [place] [address] [place] Calcium [Mass/Vol] 9.2 mg/dL Normal 8.5-10.2 [facility] Comment on above: Order Comment: Speci men Type: BLOOD SPECIMENOrdering Facility: [facility] Address: [address] [place] [address] Performed By: #### 2 4323-8 ####[facility] [id number] [place] [address] [place] Chloride [Moles/Vol] 97 mmol/L Normal 97-105 [facility] Comment on above: Order Comment: Speci men Type: BLOOD SPECIMENOrdering Facility: [facility] Address: [address] [place] [address] Performed By: #### 2 4323-8 ####[facility] [id number] [place] [address] [place] CO2 [Moles/Vol] 32 mmol/L High 22-30 [facility] Comment on above: Order Comment: Speci men Type: BLOOD SPECIMENOrdering Facility: [facility] Address: [address] [place] [address] Performed By: #### 2 4323-8 ####[facility] [id number] [place] [address] [place] Creatinine [Mass/Vol] 1.11 mg/dL High 0.58-0.96 [facility] Comment on above: Order Comment: Nichole becerra Type: BLOOD SPECIMENOrdering Facility: [facility] Address: [address] [place] [address] Performed By: #### 2 4323-8 ####[facility] [id number] [place] [address] [place] Creatinine and Glomerular filtration rate.predicted panel (S/P/Bld) 52 mL/min/1.73m??? Low >=60 [facility] Comment on above: Order Comment: Nichole becerra Type: BLOOD SPECIMENOrdering Facility: [facility] Address: [address] [place] [address] Result Comment: Shelley mated Glomerular Filtration Rate [...] actual GFR. Performed By: #### 2 4323-8 ####[facility] [id number] [place] [address] [place] Glucose [Mass/Vol] 123 mg/dL High 74-99 [facility] Comment on above: Order Comment: Nichole becerra Type: BLOOD SPECIMENOrdering Facility: [facility] Address: [address] [place] [address] Result Comment: The [place] Diabetes Association (ADA) provides guidance for cutoff [...] Standards of Medical Care in Diabetes 2016, [place] [employer]. Diabetes Care. 2016.39(Suppl 1). Performed By: #### 2 4323-8 ####[facility] [id number] [place] [address] [place] Potassium [Moles/Vol] 3.7 mmol/L Normal 3.7-5.1 [facility] Comment on above: Order Comment: Speci men Type: BLOOD SPECIMENOrdering Facility: [facility] Address: [address] [place] [address] Performed By: #### 2 4323-8 ####[facility] [id number] [place] [address] [place] Protein [Mass/Vol] 6.1 g/dL Low 6.3-8.0 [facility] Comment on above: Order Comment: Speci men Type: BLOOD SPECIMENOrdering Facility: [facility] Address: [address] [place] [address] Performed By: #### 2 4323-8 ####[facility] [id number] [place] [address] [place] Sodium [Moles/Vol] 137 mmol/L Normal 136-144 [facility] Comment on above: Order Comment: Speci men Type: BLOOD SPECIMENOrdering Facility: [facility] Address: [address] [place] [address] Performed By: #### 2 4323-8 ####[facility] [id number] [place] [id number] [place] Urea nitrogen [Mass/Vol] 21 mg/dL Normal 7-21 [facility] Comment on above: Order Comment: Speci men Type: BLOOD SPECIMENOrdering Facility: [facility] Address: [address] [place] [address] Performed By: #### 2 4323-8 ####[facility] [id number] [address] [place] DIGOXIN/LANOXINon 08-24-2023 Digoxin [Mass/Vol] 1.1 ng/mL Normal 0.6-1.2 [facility] Comment on above: Order Comment: Speci men Type: BLOOD SPECIMENOrdering Facility: [facility] Address: [address] [place] [address] Result Comment: Prov ided therapeutic concentrations are based on the 2008 ESC Guidelines for the Diagnosis and Treatment of Acute and Chronic Heart Failure. Reference ranges and high/low indicator flags are provided as general guidelines only. The treating physician must determine appropriate target levels/dosing based on the specific clinical situation. Performed By: #### D IG ####[facility] [id number] [address] [place] HISTORY PHYSICALon HISTORY PHYSICAL HNO ID: [id number] Author: AMINA PETERSEN MD Service: Clinical Cardiology Author Type: Physician Type: H&P Filed: 08/26/2023 08:14 Note Text: [facility] CARDIOVASCULAR MEDICINE HISTORY AND PHYSICAL (Template ID [id number]) Asya Asencio [id number] PRIMARY SERVICE: Cardiovascular Medicine: Clinical Cardiology DATE [...] with persistent Afib. She initially presented to [facility] with symptoms of urinary outlet [...] dayDisp: 1 TubeRfl: 11 tamsulosin 0.4 mg [id number] 1 capsule by mouth daily at bedtime.Disp: 30 capsuleRfl: 3 (Patient n (more content not included)... Normal [facility] URINALYSIS, DIPSTICK ONLYon 08-24-2023 Bilirubin Ql (U) Negative Normal Negative [facility] Comment on above: Order Comment: Speci men Type: URINE SPECIMENOrdering Facility: [facility] Address: [address] [place] [address] Performed By: #### U A ####[facility] [id number] [place] [address] [place] Clarity (Unsp spec) Cloudy Abnormal Clear [facility] Comment on above: Order Comment: Speci men Type: URINE SPECIMENOrdering Facility: [facility] Address: [address] [place] [address] Performed By: #### U A ####[facility] [id number] [place] [address] [place] Color (U) Yellow Normal Yellow [facility] Comment on above: Order Comment: Speci men Type: URINE SPECIMENOrdering Facility: [facility] Address: [address] [place] [address] Performed By: #### U A ####[facility] [id number] [place] [address] [place] Glucose Test strip (U) [Mass/Vol] Negative Normal Negative [facility] Comment on above: Order Comment: Speci men Type: URINE SPECIMENOrdering Facility: [facility] Address: [address] [place] [address] Performed By: #### U A ####[facility] [id number] [place] [address] [place] Hemoglobin Ql (U) Trace Abnormal Negative [facility] Comment on above: Order Comment: Speci men Type: URINE SPECIMENOrdering Facility: [facility] Address: [address] [place] [address] Performed By: #### U A ####[facility] [id number] [place] [address] [place] Ketones Ql (U) Trace Abnormal Negative [facility] Comment on above: Order Comment: Speci men Type: URINE SPECIMENOrdering Facility: [facility] Address: [address] [place] [address] Performed By: #### U A ####[facility] [id number] [place] [address] [place] Leukocyte esterase Test strip Ql (U) 1+ Abnormal Negative [facility] Comment on above: Order Comment: Speci men Type: URINE SPECIMENOrdering Facility: [facility] Address: [address] [place] [address] Performed By: #### U A ####[facility] [id number] [place] [address] [place] Nitrite Ql (U) Negative Normal Negative [facility] Comment on above: Order Comment: Speci men Type: URINE SPECIMENOrdering Facility: [facility] Address: [address] [place] [address] Performed By: #### U A ####[facility] [id number] [place] [address] [place] pH (U) 5.5 [pH] Normal <8.5 [facility] Comment on above: Order Comment: Speci men Type: URINE SPECIMENOrdering Facility: [facility] Address: [address] [place] [address] Performed By: #### U A ####[facility]IA [id number] [place] [address] [place] Protein (U) [Mass/Vol] 1+ Abnormal Negative Cl [facility] Comment on above: Order Comment: Speci men Type: URINE SPECIMENOrdering Facility: [facility] Address: [address] [place] [address] Performed By: #### U A ####[facility] [id number] [place] [address] [place] Specific gravity (U) [Rel density] 1.021 Normal 1.005-1.030 [facility] Comment on above: Order Comment: Speci men Type: URINE SPECIMENOrdering Facility: [facility] Address: [address] [place] [address] Performed By: #### U A ####[facility] [id number] [place] [address] [place] Urobilinogen Ql (U) 1.0 EU/dL Normal 0.2-1.0 EU/dL [facility] Comment on above: Order Comment: Speci men Type: URINE SPECIMENOrdering Facility: [facility] Address: [address] [place] [address] Performed By: #### U A ####[facility] [id number] [place] [address] [place] CBC panel Auto (Bld)on 08-23 Erythrocyte distribution width (RBC) [Ratio] 12.9 % Normal 11.5-15.0 [facility] Comment on above: Order Comment: Speci men Type: BLOOD SPECIMENOrdering Facility: [facility] Address: [address] [place] [address] Performed By: #### 5 8410-2 ####[facility]IA [id number] [place] [address] [place] Hematocrit (Bld) [Volume fraction] 43.4 % Normal 36.0-46.0 [facility] Comment on above: Order Comment: Speci men Type: BLOOD SPECIMENOrdering Facility: [facility] Address: [address] [place] [address] Performed By: #### 5 8410-2 ####[facility]IA [id number] [place] [address] [place] Hemoglobin (Bld) [Mass/Vol] 14.4 g/dL Normal 11.5-15.5 [facility] Comment on above: Order Comment: Speci men Type: BLOOD SPECIMENOrdering Facility: [facility] Address: [address] [place] [address] Performed By: #### 5 8410-2 ####[facility]IA [id number] [place] [address] [place] MCH (RBC) [Entitic mass] 30.3 pg Normal 26.0-34.0 [facility] Comment on above: Order Comment: Speci men Type: BLOOD SPECIMENOrdering Facility: [facility] Address: [address] [place] [address] Performed By: #### 5 8410-2 ####[facility]IA [id number] [place] [address] [place] MCHC (RBC) [Mass/Vol] 33.2 g/dL Normal 30.5-36.0 [facility] Comment on above: Order Comment: Speci men Type: BLOOD SPECIMENOrdering Facility: [facility] Address: [address] [place] [address] Performed By: #### 5 8410-2 ####[facility]IA [id number] [place] [address] [place] MCV (RBC) [Entitic vol] 91.4 fL Normal 80.0-100.0 [facility] Comment on above: Order Comment: Speci men Type: BLOOD SPECIMENOrdering Facility: [facility] Address: [address] [place] [address] Performed By: #### 5 8410-2 ####[facility]IA [id number] [place] [address] [place] Nucleated RBC (Bld) [#/Vol] 10*3/uL Normal <0.01 [facility] Comment on above: Order Comment: Speci men Type: BLOOD SPECIMENOrdering Facility: [facility] Address: [address] [place] [address] Performed By: #### 5 8410-2 ####[facility]IA [id number] [place] [address] [place] Platelet mean volume (Bld) [Entitic vol] 10.5 fL Normal 9.0-12.7 [facility] Comment on above: Order Comment: Speci men Type: BLOOD SPECIMENOrdering Facility: [facility] Address: [address] [place] [address] Performed By: #### 5 8410-2 ####[facility]IA [id number] [place] [address] [place] Platelets (Bld) [#/Vol] 215 10*3/uL Normal 150-400 [facility] Comment on above: Order Comment: Speci men Type: BLOOD SPECIMENOrdering Facility: [facility] Address: [place] [address] Performed By: #### 5 8410-2 ####[facility] [id number] [place] [address] [place] RBC (Bld) [#/Vol] 4.75 10*6/uL Normal 3.90-5.20 [facility] Comment on above: Order Comment: Speci men Type: BLOOD SPECIMENOrdering Facility: [facility] Address: [address] [place] [address] Performed By: #### 5 8410-2 ####[facility]IA [id number] [place] [address] [place] WBC (Bld) [#/Vol] 6.24 10*3/uL Normal 3.70-11.00 [facility] Comment on above: Order Comment: Speci men Type: BLOOD SPECIMENOrdering Facility: [facility] Address: [address] [place] [address] Performed By: #### 5 8410-2 ####[facility]IA [id number] [place] [address] [place] CNOVon 08-23-2023 CNOV Office Visit ([facility] ) ASYA ASENCIO I ([id number]) 1950 F Date Time Provider Department 08/23/23 3:20 PM MICHELINE SORTO [facility] During your visit today, we recorded the following information about you: Micheline Sorto MD 08/24/2023 8:19 AM Signed [facility] [place] DEPARTMENT OF CARDIAC SURGERY OUTPATIENT VISIT PCP: Peggy Nazario MD [address] [place] [address] Referring Physician: Micheline Sorto [address] [facility] [address] Patient Type: New Visit to Determine Surgery: [...] valve is noncalcified. Normal caliber thoracic aorta. Form Tamper: PSCB Transcribe Date/Time: Aug 23 2023 11:20A [...] Micheline Sorto MD Referring Provider: MICHELINE SORTO [[id number]] Allergies As of Date: 08/23/2023 Noted Allergy [...] Order(s):CARDIOTHORAC IC PREOP EVALUATION [] Order #: [id number]: 1 Prescriptions as of 08/24/2023 - apixaban [...] orally disintegrat (more content not included)... Normal [facility] Office Visit ([facility] ) ASYA ASENCIO I ([id number]) 1950 F Date Time Provider Department 08/23/23 7:45 AM ALEA HARLEY [facility] During your visit today, we recorded the following information about you: Pulse Blood pressure Weight Height 47/minute 107/58 52.2 kg 1.651 m Alea Harley MD 08/23/2023 12:58 PM [facility] [place] Jojo Lr Department of Cardiovascular Medicine SECTION OF CLINICAL CARDIOLOGY OUTPATIENT VISIT DATE August 23, 2023 OUTPATIENT VISIT TYPE NEW PRIMARY CARE PHYSICIAN: Peggy Nazario MD [address] [place] [address] REFERRING PHYSICIAN: Micheline Sorto [address] [place] [address] CHIEF COMPLAINT: Mitral regurgitation. HISTORY OF PRESENT [...] emptying her bladder. When seen in the [facility] ER, she was found to be in [...] She is being referred by her private extension course coordinator, Dr.D. Henriquez for consideration of MVr. As [...] is a 73 year old female from [place], [place] here today for cardiovascular evaluation related [...] disease Father (more content not included)... Normal [facility] CREATININE BLDon 08-23-2023 Creatinine [Mass/Vol] 0.97 mg/dL High 0.58-0.96 [facility] Comment on above: Order Comment: Speci men Type: BLOOD SPECIMEN [facility] Address: [address] [place] [address] Performed By: #### 2 4323-8, #### [facility] CLIA [id number] [facility] [place] [address] [place] Creatinine and Glomerular filtration rate.predicted panel (S/P/Bld) 61 mL/min/1.73m??? Normal >=60 [facility] Comment on above: Order Comment: Speci mariam Type: BLOOD SPECIMEN [facility] Address: [address] [place] [address] Result Comment: Shelley mated Glomerular Filtration Rate [...] GFR. Performed By: #### 2 4323-8, #### [facility] CLIA [id number] [address] [place] [address] [place] CTA CHEST (GATED) [...] AORTIC DIMENSIONS: AORTIC ROOT: 3.5 cm measured [id number] Area cm2 mid ASCENDING THORACIC AORTA: 2.9 cm Area cm2 mid DESCENDING THORACIC AORTA: 2.2 cm limited upper ABDOMEN: unremarkable BONES: Unremarkable Fountain Pen Turner (topogram) images: No additional findings. IMPRESSION: Dilated left ventricle, biatrial enlargement. Mitral valve is noncalcified. Normal caliber thoracic aorta. Form Tamper: LILIANA Transcribe Date/Time: Aug 23 2023 11:20A Dictated by : SARAH CARNEY MD This examination was interpreted and the report reviewed and electronically signed by: SARAH CARNEY MD on Aug 23 2023 12:14PM EST [id number] Normal [facility] Comprehensive metabolic 2000 panelon 08-23-2023 Albumin [Mass/Vol] 4.4 g/dL Normal 3.9-4.9 [facility] Comment on above: Order Comment: Speci men Type: BLOOD SPECIMENOrdering Facility: [facility] Address: [address] [place] [address] Performed By: #### 3 3762-6, ####[facility] [id number] [place] [address] [place] ALP [Catalytic activity/Vol] 66 U/L Normal 34-123 [facility] Comment on above: Order Comment: Speci men Type: BLOOD SPECIMENOrdering Facility: [facility] Address: [address] [place] [address] Performed By: #### 3 3762-6, ####[facility] [id number] [place] [address] [place] ALT [Catalytic activity/Vol] 40 U/L High 7-38 [facility] Comment on above: Order Comment: Speci men Type: BLOOD SPECIMENOrdering Facility: [facility] Address: [address] [place] [address] Performed By: #### 3 3762-6, ####[facility]IA [id number] [place] [address] [place] Anion gap [Moles/Vol] 9 mmol/L Normal 9-18 [facility] Comment on above: Order Comment: Speci men Type: BLOOD SPECIMENOrdering Facility: [facility] Address: [address] [place] [address] Performed By: #### 3 3762-6, ####[facility] [id number] [place] [address] [place] AST [Catalytic activity/Vol] 31 U/L Normal 13-35 [facility] Comment on above: Order Comment: Speci men Type: BLOOD SPECIMENOrdering Facility: [facility] Address: [address] [place] [address] Performed By: #### 3 3762-6, ####[facility] [id number] [place] [address] [place] Bilirubin [Mass/Vol] 0.8 mg/dL Normal 0.2-1.3 [facility] Comment on above: Order Comment: Speci men Type: BLOOD SPECIMENOrdering Facility: [facility] Address: [address] [place] [address] Performed By: #### 3 3762-6, ####[facility]IA [id number] [place] [address] [place] Calcium [Mass/Vol] 9.8 mg/dL Normal 8.5-10.2 [facility] Comment on above: Order Comment: Speci men Type: BLOOD SPECIMENOrdering Facility: [facility] Address: [address] [place] [address] Performed By: #### 3 3762-6, ####[facility] [id number] [place] [address] [place] Chloride [Moles/Vol] 98 mmol/L Normal 97-105 [facility] Comment on above: Order Comment: Speci men Type: BLOOD SPECIMENOrdering Facility: [facility] Address: [address] [place] [address] Performed By: #### 3 3762-6, ####[facility] LABCLIA [id number] [place] [address] [place] CO2 [Moles/Vol] 32 mmol/L High 22-30 [facility] Comment on above: Order Comment: Speci men Type: BLOOD SPECIMENOrdering Facility: [facility] Address: [address] [place] [address] Performed By: #### 3 376-6, ####[facility] LABIA [id number] [place] [address] [place] Creatinine [Mass/Vol] 0.98 mg/dL High 0.58-0.96 [facility] Comment on above: Order Comment: Speci men Type: BLOOD SPECIMENOrdering Facility: [facility] Address: [address] [place] [address] Performed By: #### 3 376-6, ####[facility] H[facility]PITAL[facility] [id number] [place] [address] [place] Creatinine and Glomerular filtration rate.predicted panel (S/P/Bld) 60 mL/min/1.73m??? Normal >=60 [facility] Comment on above: Order Comment: Speci men Type: BLOOD SPECIMENOrdering Facility: [facility] Address: [address] [place] [address] Result Comment: Shelley mated Glomerular Filtration Rate [...] actual GFR. Performed By: #### 3 3762-6, ####[facility] LABIA [id number] [place] [address] [place] Glucose [Mass/Vol] 127 mg/dL High 74-99 [facility] Comment on above: Order Comment: Speci men Type: BLOOD SPECIMENOrdering Facility: [facility] Address: [address] [place] [address] Result Comment: The [place] Diabetes Association (ADA) provides guidance for cutoff [...] Standards of Medical Care in Diabetes 2016, [place] [employer] Association. Diabetes Care. 2016.39(Suppl 1). Performed By: #### 3 3762-6, ####[facility] LABCLIA [id number] [place] [address] [place] Potassium [Moles/Vol] 4.1 mmol/L Normal 3.7-5.1 [facility] Comment on above: Order Comment: Nichole becerra Type: BLOOD SPECIMENOrdering Facility: [facility] Address: [address] [place] [address] Performed By: #### 3 3762-6, ####[facility] LABCLIA [id number] [place] [address] [place] Protein [Mass/Vol] 6.8 g/dL Normal 6.3-8.0 [facility] Comment on above: Order Comment: Speci men Type: BLOOD SPECIMENOrdering Facility: [facility] Address: [address] [place] [address] Performed By: #### 3 3762-6, ####[facility] LABCLIA [id number] [place] [address] [place] Sodium [Moles/Vol] 139 mmol/L Normal 136-144 [facility] Comment on above: Order Comment: Speci men Type: BLOOD SPECIMENOrdering Facility: [facility] Address: [address] [place] [id number] Performed By: #### 3 3762-6, 12414-5 ####[facility] LABCLIA [id number] [place] [id number] [place] Urea nitrogen [Mass/Vol] 17 mg/dL Normal 7-21 [facility] Comment on above: Order Comment: Speci men Type: BLOOD SPECIMENOrdering Facility: [facility] Address: [address] [id number] Performed By: #### 3 3762-6, 39781-3 ####[facility] LABCLIA [id number] [place] [id number] [place] [id number] 08-23-2023 ECG01 Ventricular Rate : 8 5 BPM Atrial Rate : 250 BPM QRS Duration : 82 ms Q-T Interval : 368 ms QTC Calculation(Bazett) : 437 ms Calculated R Tillar : 86 degrees Calculated T Tillar : -51 degrees ATRIAL FIBRILLATION NONSPECIFIC ST AND T WAVE ABNORMALITY , PROBABLY DIGITALIS EFFECT ABNORMAL ECG Confirmed by JOSSE BURKS MD ([id number]) on 09/03/2023 4:14:55 PM NAME : ASYA ASENCIO PID : [id number] : 1950 Gender : Female Race : [...] Referred By : , Acquired by : [id number], Normal [facility] ECHOon 08-23-2023 Echocardiography Echocardiography Report: Transthoracic Echo [facility] J35 Date of service: 08/23/2023 2:15:32 PM MAN Ordering physician: MICHELINE SORTO Indication: Valvular heart disease Technologist: Dede Watts [facility] Interpreting physician: To Brewer MD PATIENT: Name: [...] * Final (Updated) * * * CC [employer] [facility] : [id number] micsSISUID Normal [facility] NT-proBNP SerPl-ncon 08-23 Natriuretic peptide.B prohormone N-Terminal [Mass/Vol] 3265 pg/mL High <450 [facility] Comment on above: Order Comment: Speci men Type: BLOOD SPECIMENOrdering Facility: [facility] Address: [address] [place], [place] [address] [place] [address] Performed By: #### 3 3762-6, 18708-7 ####[facility] LABDIANE [id number] DULCE SALDANA [id number] [place] [address] [place] RIGHT HEART CATH REPORTon RIGHT HEART CATH REPORT Name: MRS. ASYA ASENCIO Age: 73 years : Procedure Date: 08/23/2023 Procedure Start Time: 08/23/2023 12:09:58 PM Procedure Stop Time: 08/23/2023 12:43:39 PM Physcian Name Case Duties Gianni Villalba D.O. Diagnostic Attending Physician Yasir Coronado M.D. Apron Operator INDICATIONS FOR PROCEDURE: Heart failure PROCEDURE: PROCEDURAL [...] Imaging was obtained in AP 0 and SYRIAN 45 degrees. After examining qualitatively (QCA) and calculating vessel diameter, the optimal sensor placement was determined. Roadmap images were placed for reference. A 0.018 inch steel core ([employer]imate [employer]) wire was inserted and place distal to the target sensor location. The balloon wedge pressure catheter was removed. The CardioMEMS delivery catheter was removed from the sterile packaging and flushed in its original housing. The catheter was pre soaked and agitated according to the oven heater helper's instructions to activate the hydrophilic coating. The [...] ECG, p (more content not included)... Normal [facility] US CAROTID ARTERIES [facility] LABon 08-23-2023 US CAROTID ARTERIES [facility] LAB Non-Invasive Vascular Laboratory [facility] J35 Carotid Duplex Bilateral/Complete Date of service/time: [...] physician: Eleonora Moffett MD, ROSIO Final CC [employer] [facility] : [id number] sSISUID See Link below for Image Normal [facility] Samia 08-22-2023 ANTHALIE Telephone (HOMER) ASYA ASENCIO I ([id number]) 1950 F Date Time Provider Department 08/22/23 [...] Date Reviewed: 10/24/2017 Reviewed by: Eb Goss (Continuous [employer]ipe [employer] Supervisor), COSMETOLOGIST APPRENTICE - Fully Assessed Reason for Visit: Patient [...] Status:Closed by PATRICA GRIFFITHS RN on [facility]/22/[facility] ([id number]) 1950 F Date Time Provider Department 08/16/23 GIANNI ENCINAS During your visit today, we recorded the following information about you: Maryan Bhardwaj 08/16/2023 12:56 PM Signed Study TItle: Risk Assessment of Stroke Using Non-Invasive Ultrasonic Backscatter from Carotid Plaque (RUNUP) IRB#: [id number] PI: Ruba Villanueva, PhD Phone#: [phone] COORDINATOR/Research Nurse/American Indian Policy Specialist: Gianni Encinas PhD or Maryan Bhardwaj or [phone] Pager: [phone] Recruitment Telephone Contact to introduce the study [...] questions feel free to contact me at [phone]. REMINDER Confirm the scheduled date and time [...] Date Reviewed: 10/24/2017 Reviewed by: Eb Goss ([employer] Supervisor), CALLIE - Fully Assessed Reason for Visit: [...] Status:Closed by MARYAN BHARDWAJ on 08/16/23 Normal [facility] Outside Cardiovascularon Outside Cardiovascular [id number] [id number]# 1.00TIFF Normal [facility] Progress Note-Physicianon Progress Note-Physician [id number]#1 .00TIFF Normal [facility] Progress Note-Physician Normal [facility] Comment on above: Result Comment: Elec tronically Signed By: MARTINEZ MCMAHON, Johan Ribeiro.br\Date and Time Signed: 07/05/23 06:48 EST Echocardiogram-Transesophage anamaria 07-28-2023 Echocardiogram-Transes ophageal [id number]# 1.00TIFF Normal [facility] Tele[facility] ([facility]) ASYA ASENCIO I ([id number]) 1950 F Date Time Provider Department 07/24/23 [...] Date Reviewed: 10/24/2017 Reviewed by: Eb Goss (Contin[employer] Supervisor), CALLIE - Fully Assessed Reason for Visit: [...] Encounter Status:Closed by REBECCA NUNN on 07/24/23 [facility] Telephone ([facility]) ASYA ASENCIO I ([id number]) 1950 F Date Time Provider Department 07/24/23 [...] for his review/plan of care. Asya Asencio [id number] 73 year old Diagnosis: Sev MR, Sev [...] and eval with Cardiology and Dr. Sorto. Balloon Sander will contact patient with date and let [...] PATIENT SENT SCHEDULE FED X Referring Provider: JOHAN HENRIQUEZ [[id number]] Allergies As of Date: 07/24/2023 Noted Allergy [...] Fully Assessed Reason for Visit: Referral Information [2763] Consult [173] Primary Visit Diagnosis:Disorder of artery or arteriole (HCC) [I77.9] Other Visit Diagnoses:Non-rheumat ic mitral regurgitation [I34.0] Nonrheumatic tricuspid valve regurgitation [I36.1] Other specified symptoms and signs involving the circulatory and respiratory systems [R09.89] Mitral valve disorder [I05.9] Tricuspid valve disorders, non-rheumatic [I36.9] Order(s):CONSULT TO CARDIOLOGY [9004] Order #: [id number]: 1 FUTURE CARDIOTHORACIC PREOP EVALUATION [] Order #: [id number]: 1 FUTURE ECHO [162339] Order #: [id number]: 1 FUTURE CTA CHEST (GATED) W IVCON [2929406] Order #: [id number] FUTURE CREATININE BLD [SQCRET] Order #: [id number] FUTURE US CAROTID ARTERIES [facility] [5281476] Order #: [id number] FUTURE CARDIAC TECHNOLOGY SALES SPECIALIST ORDER [0361821] Order #: [id number]: 1 Prescriptions as of 07/28/2023 - apixaban [...] Status:Closed by NEWTON WATTS on 07/28/23 Normal [facility] Discharge Instructionson Discharge Instructions [id number] [id number]# 1.00TIFF [facility] Formson 07-24-2023 Forms [id number]#1 .00TIFF [facility] Consent for Treatmenton Consent for Treatment [id number] 312 [id number]#1 .00TIFF [facility] Inpatient Clinical Summaryon 07-21-2023 Inpatient Clinical Summary [facility] Inpatient Patient Summaryon 07-21-2023 Inpatient Patient Summary [facility] Patient Education - Texton 1 09-21-2022 Patient Education - Text [facility] Progress Note-Physicianon Progress Note-Physician [facility] Comment on above: Result Comment: Elec tronically Signed By: MARTINEZ MCMAHON, Johan Patino\.br\Date and Time Signed: 07/21/23 07:09 EST Referrals Officeon Referrals Office [id number]# 1.00TIFF [facility] Consent for Procedure/Surger yon 07-20-2023 Consent for Procedure/Surgery [id number] #1.00TIFF [facility] Consent for Treatmenton 0 Consent for Treatment [id number] 312 [id number]#1 .00TIFF [facility] Heart and Vascular Office/Cl inic Noteon 07-20-2023 Heart and Vascular Office/Clinic Note [facility] Comment on above: Result Comment: Elec tronically Signed By: MARTINEZ MCMAHON, Johan Patino\.br\Date and Time Signed: 07/20/23 10:38 EST Physician Orderon 07-20-2023 Physician Order [id number] #1.00TIFF [facility] Ambulatory Visit Summaryon 1 09-19-2022 Ambulatory Visit Summary [facility] Patient Educationon 07-19-20 Patient Education [facility] Urology Office/Clinic Noteon 07-19-2023 Urology Office/Clinic Note [facility] Comment on above: Result Comment: Elec tronically Signed By: Micheline BROOKS MD\.br\Date and Time Signed: 07/19/23 16:01 EST\.br\Electronically Co-Signed By: Felisa Bautista\.br\Date and Time Co-Signed: 07/19/23 15:59 EST Coding Queryon 07-17-2023 Coding Query [facility] ED Note-Physicianon 07-15-20 ED Note-Physician [facility] Comment on above: Result Comment: Elec tronically Signed By: Jannette Black PA-C\.br\Date and Time Signed: 07/07/23 15:56 EST\.br\Electronically Co-Signed By: Jeff Cross DO\.br\Date and Time Co-Signed: 07/15/23 06:59 EST Cardiovascular Reporton 06-16 Cardiovascular Report [id number] 311 [id number]# 2.00TIFF [facility] Nursing Assessmenton 023 Nursing Assessment [id number]# 1.00TIFF [facility] Discharge Instructionson Discharge Instructions [id number] [id number]# 1.00TIFF Normal [facility] Auto Diffon 07-07-2023 Basophils/100 WBC (Bld) 0.6 % Normal 0.0-2.0 [facility] Comment on above: Order Comment: Order Added by Discern Expert. Performed By: #### 1 5280256, 05165423, 0831887, 23724134, 0992555, 6955427, 49137028 ####[facility] [address] [place] [address] Basophils/Leukocytes Auto (Bld) [Pure # fraction] 0.0 E9/L Normal 0.0-0.2 [facility] Comment on above: Order Comment: Order Added by Discern Expert. Performed By: #### 1 1607156, 23559466, 8825793, 41559965, 9935643, 5678540, 03903732 ####[facility] [address] [place] [address] Eosinophils/100 WBC (Bld) 1.5 % Normal 0.0-8.0 [facility] Comment on above: Order Comment: Order Added by Discern Expert. Performed By: #### 1 4761466, 21993665, 5138146, 80534641, 5014399, 9627377, 25842201 ####[facility] [address] [place] [address] Eosinophils/Leukocytes Auto (Bld) [Pure # fraction] 0.1 E9/L Normal 0.0-0.5 [facility] Comment on above: Order Comment: Order Added by Discern Expert. Performed By: #### 1 9950728, 88008995, 0213736, 46680036, 1408290, 9248877, 86096283 ####[facility] [address] [place] [address] Lymphocytes/100 WBC (Bld) 15.3 % Normal 14.0-50.0 [facility] Comment on above: Order Comment: Order Added by Discern Expert. Performed By: #### 1 1094963, 79772457, 2362781, 57143005, 1304591, 9240086, 52126474 ####[address] [place] [address] Lymphocytes/Leukocytes Auto (Bld) [Pure # fraction] 1.2 E9/L Normal 1.0-4.0 [facility] Comment on above: Order Comment: Order Added by Discern Expert. Performed By: #### 1 3717365, 54904101, 5021893, 66122156, 7702029, 4579186, 50741526 ####[address] [place] [address] Monocytes/100 WBC (Bld) 6.4 % Normal 4.0-14.0 [facility] Comment on above: Order Comment: Order Added by Valeria Expert. Performed By: #### 1 1613162, 07434197, 6218714, 26490034, 5958545, 9739345, 89959532 ####[address] [address] Monocytes/Leukocytes Auto (Bld) [Pure # fraction] 0.5 E9/L Normal 0.2-1.0 [facility] Comment on above: Order Comment: Order Added by Valeria Expert. Performed By: #### 1 4531464, 32325680, 5221406, 15403548, 5814833, 4518386, 36529456 ####[address] [place] [address] Neutrophils/100 WBC (Bld) 76.2 % High 36.0-75.0 [facility] Comment on above: Order Comment: Order Added by Valeria Expert. Performed By: #### 1 2085541, 75183739, 8109844, 45209591, 7995069, 3444230, 35472664 ####[address] [place] [address] Neutrophils/Leukocytes Auto (Bld) [Pure # fraction] 6.1 E9/L Normal 2.0-7.5 [facility] Comment on above: Order Comment: Order Added by Discern Expert. Performed By: #### 1 6753768, 72086964, 3206930, 37037953, 5567457, 4618753, 14947265 ####[facility] [address] [place] [address] BMPon 07-07-2023 Creatinine [Mass/Vol] 0.8 mg/dL Normal 0.5-1.3 [facility] Comment on above: Performed By: #### 1 5766814, 53190962, 3549424, 77301873, 3150290, 2668974, 72066784 ####[facility] [address] [place] [address] Urea nitrogen [Mass/Vol] 13 mg/dL Normal 5-21 [facility] Comment on above: Performed By: #### 1 9258296, 37668735, 7664884, 20837581, 0978495, 1736338, 34002079 ####[facility] [address] [place] [address] Urea nitrogen/Creatinine [Mass ratio] 16 No Units Normal 10-20 [facility] Comment on above: Performed By: #### 1 6316232, 41786200, 7375039, 06007531, 4424092, 2155998, 50514443 ####[facility] [address] [place] [address] Anion gap [Moles/Vol] 14 mmol/L Normal 6-16 [facility] Comment on above: Performed By: #### 1 8269428, 79388477, 7855361, 95358639, 5747964, 6792370, 68286600 ####[facility] [address] [place] [address] Calcium [Mass/Vol] 8.7 mg/dL Low 8.9-11.1 [facility] Comment on above: Performed By: #### 1 6063011, 71392640, 9966471, 34571945, 3699962, 9843960, 95503134 ####[facility] [address] [place] [address] Chloride [Moles/Vol] 100 mmol/L Low 101-111 [facility] Comment on above: Performed By: #### 1 8547051, 29491965, 5531738, 26156433, 0189249, 2754543, 82518574 ####[facility] [address] [place] [address] CO2 [Moles/Vol] 26 mmol/L Normal 21-31 [facility] Comment on above: Performed By: #### 1 6388708, 24393912, 5054478, 11616966, 8009102, 0561364, 28948209 ####[facility] [address] [place] [address] Glucose [Mass/Vol] 137 mg/dL Normal 55-199 [facility] Comment on above: Result Comment: If t his glucose result represents a fasting glucose, interpretation should refer to the following reference range: 55-99 mg/dL Performed By: #### 1 3523019, 08660054, 2664325, 43151068, 5073063, 9066149, 80181556 ####[facility] [address] [place] [address] Potassium [Moles/Vol] 4.3 mmol/L Normal 3.5-5.3 [facility] Comment on above: Performed By: #### 1 3658426, 30784255, 7335183, 04567175, 3322693, 0915006, 94305450 ####[facility] [address] [place] [address] Sodium [Moles/Vol] 136 mmol/L Normal 135-145 [facility] Comment on above: Performed By: #### 1 1390998, 52021798, 0973112, 59899932, 9045989, 4614839, 44979758 ####[facility] [address] [place] [address] BNPon 07-07-2023 Natriuretic peptide B (Bld) [Mass/Vol] 756 pg/mL High 5-80 [facility] Comment on above: Performed By: #### 1 8246530, 85449574, 6584400, 33629755, 8192540, 3136873, 51657015 ####[facility] [address] [place] [address] CBC w/ Auto Diffon 3 Erythrocyte distribution width (RBC) [Ratio] 13.8 % Normal 10.9-14.2 [facility] Comment on above: Performed By: #### 1 6615864, 94264493, 1658054, 94401849, 3986457, 4394604, 69717255 ####[address] [place] [address] Hematocrit (Bld) [Volume fraction] 40.3 % Normal 34.0-46.0 [facility] Comment on above: Performed By: #### 1 5440364, 01201262, 3616046, 42308239, 2042008, 5223680, 56139919 ####[address] [place] [address] Hemoglobin (Bld) [Mass/Vol] 13.0 g/dL Normal 12.0-16.0 [facility] Comment on above: Performed By: #### 1 4153999, 43383177, 0928063, 89350529, 5290695, 4161044, 32181551 ####[address] [place] [address] MCH (RBC) [Entitic mass] 29.2 pg Normal 27.0-34.0 [facility] Comment on above: Performed By: #### 1 0922184, 65807354, 6709868, 19229333, 2157055, 7497922, 04180879 ####[address] [place] [address] MCHC (RBC) [Mass/Vol] 32.3 g/dL Normal 31.4-36.0 [facility] Comment on above: Performed By: #### 1 0335736, 25247158, 2729804, 02039842, 0678481, 0403042, 68481549 ####[address] [place] [address] MCV (RBC) [Entitic vol] 90.2 fL Normal 80.0-100.0 [facility] Comment on above: Performed By: #### 1 3795245, 49092207, 0629532, 68096191, 0993491, 9299700, 52909384 ####[address] [address] Platelet mean volume (Bld) [Entitic vol] 8.5 fL Normal 6.4-10.8 [facility] Comment on above: Performed By: #### 1 0752319, 16970902, 3802039, 89660113, 6594070, 2496798, 33713908 ####[address] [address] Platelets (Bld) [#/Vol] 291.0 E9/L Normal 150.0-500.0 [facility] Comment on above: Performed By: #### 1 3669640, 56037832, 0914373, 71844096, 8028025, 6330717, 15848376 ####[place] [address] RBC (Bld) [#/Vol] 4.5 E12/L Normal 4.3-5.9 [facility] Comment on above: Performed By: #### 1 5742639, 62506032, 3655287, 88432152, 2933393, 8211999, 46435621 ####[address] [address] WBC corrected for nucl RBC Auto (Bld) [#/Vol] 8.0 E9/L Normal 4.0-11.0 [facility] Comment on above: Performed By: #### 1 2015258, 05625120, 4526868, 82486617, 7126389, 3210106, 92750363 ####[address] [address] CHEMISTRYOrdered By: SYSTEM SYSTEM on 07-07-2023 Troponin [...] Sensitivity Troponin I Instructions For Use, [employer] March 2018) Anion gap [Moles/Vol] 14 mmol/L Normal 6 - 16 mEq/L F C Remisol Calcium [Mass/Vol] 8.7 mg/dL Low 8.9 - 11. 1 mg/dL FT Remisol Chloride [Moles/Vol] 100 mmol/L Low 101 - 1 11 mmol/L FT Remisol CO2 [Moles/Vol] 26 mmol/L Normal 21 - 31 mmol/L FT Remisol Creatinine [Mass/Vol] 0.8 mg/dL Normal 0.5 - 1.3 mg/dL [facility] Remisol GFR/1.73 sq M.predicted among non-blacks MDRD (S/P/Bld) [Vol rate/Area] 77 mL/min/1.73 m2 Normal >=59mL/min/1 .73 m2 [facility] Chem S Comment on above: Interpretive Data: [...] 136 mmol/L Normal 135 - 145 mmol/L [facility] Remisol Troponin I.cardiac [Mass/Vol] 39.60 pg/mL Invalid Interpretation Code 10.10 - 27.10 pg/mL [facility] Remisol Comment on above: Result Comment: Crit [...] 13 mg/dL Normal 5 - 21 mg/dL [facility] Remisol Urea nitrogen/Creatinine [Mass ratio] 16 mg/mg Normal 10 - 20 [facility] Remisol CHEMISTRYOrdered By: Margaret Collier on 07-07-2023 Natriuretic peptide B (Bld) [Mass/Vol] 756 pg/mL High 5 - 80 pg/mL [facility] HemeManSS COAGULATIONOrdered By: Fay Tran on 07-07-2023 aPTT Coag (PPP) [Time] 28.4 s Normal 25.1 - 36.5 second(s) [facility] Auto Coag Comment on above: Interpretive Data: [...] the same coagulation reagent and instrumentation as [facility]. Currently there are no coagulation studies available worldwide for children to 14 days, and no normal ranges. Heparin therapeutic range (represented by Anti-Factor Xa activity of 0.2 - 0.4 U/mL) corresponds to PTT of 56.6 - 109.0 sec. INR Coag (PPP) [Relative time] 1.0 {INR} Invalid Interpretation Code [facility] Auto Coag Comment on above: Interpretive Data: I NR results are specifically intended to assess patients stabilized on long-term Anticoagulation therapy suggested INR s Less Intensive Anticoagulation 2.0 3.0 Conventional Range 3.0 4.5 PT Coag (PPP) [Time] 11.3 s Normal 9.4 - 1 2.5 second(s) [facility] Auto Coag Comment on above: Interpretive Data: [...] the same coagulation reagent and instrumentation as [facility]. Currently there are no coagulation studies available worldwide for children to 14 days, and no normal ranges. Consent for Procedure/Surger yon 07-07-2023 Consent for Procedure/Surgery [id number]# 1.00TIFF Normal [facility] Consent for Treatmenton 06-15 Consent for Treatment [id number]#1 .00TIFF [facility] Discharge Instructionson Discharge Instructions [id number]#1 .00TIFF Normal [facility] ED Clinical Summaryon 2022 ED Clinical Summary Normal [facility] ED Note-Nursingon 07-07-2023 ED Note-Nursing discussed in length medications pt needs to take yet today and 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 Normal [facility] ED Patient Education Noteon 07-07-2023 ED Patient Education Note Normal [facility] ED Patient Summaryon 023 ED Patient Summary Normal [facility] HEMATOLOGYOrdered By: SYSTEM SYSTEM on 07-07-2023 Basophils/100 [...] 32.3 g/dL Normal 31.4 - 36.0 gm/dL [facility] HemeAutoSS MCV (RBC) [Entitic vol] 90.2 fL Normal 80.0 - 100.0 fL FT HemeAutoSS Platelet mean volume (Bld) [Entitic vol] 8.5 fL Normal 6.4 - 10.8 fL [facility] HemeAutoSS Platelets (Bld) [#/Vol] 291.0 E9/L Normal 150.0 - 500.0 E9/L [facility] HemeAutoSS RBC (Bld) [#/Vol] 4.5 E12/L Normal 4.3 - 5.9 E12/L [facility] HemeAutoSS WBC corrected for nucl RBC Auto (Bld) [#/Vol] 8.0 E9/L Normal 4.0 - 11.0 E9/L [facility] HemeAutoSS Insurance Correspondence Off iceon 07-07-2023 Insurance Correspondence Office [id number]#1 .00TIFF Normal [facility] Monitor Recordon 07-07-2023 Monitor Record [id number]# 1.00TIFF Normal [facility] Monitor Record [id number]# 1.00TIFF Normal [facility] Monitor Record [id number]# 1.00TIFF Normal [facility] PT & PTTon 07-07-2023 aPTT Coag (PPP) [Time] 28.4 second(s) Normal 25.1-36.5 [facility] Comment on above: Result Comment: Para meter [...] the same coagulation reagent and instrumentation as [facility]. Currently there are no coagulation studies available worldwide for children to 14 days, and no normal ranges. Heparin therapeutic range (represented by Anti-Factor Xa activity of 0.2 - 0.4 U/mL) corresponds to PTT of 56.6 - 109.0 sec. Performed By: #### 1 1600991, 09886928, 8271816, 29486942, 9485897, 8644124, 96345261 ####[facility] [address] [place] [address] INR Coag (PPP) [Relative time] 1.0 {INR} Invalid Interpretation Code [facility] Comment on above: Result Comment: INR results are specifically intended to assess patients stabilized on long-term Anticoagulation therapy suggested INR?s ?Less Intensive Anticoagulation? 2.0 ? 3.0Conventional Range 3.0 ? 4.5 Performed By: #### 1 5041209, 83319363, 9111762, 79903512, 4302543, 1195832, 89637346 ####[facility] [address] [place] [address] PT Coag (PPP) [Time] 11.3 second(s) Normal 9.4-12.5 [facility] Comment on above: Result Comment: 15 d [...] the same coagulation reagent and instrumentation as [facility]. Currently there are no coagulation studies available worldwide for children to 14 days, and no normal ranges. Performed By: #### 1 6236880, 59842352, 0622867, 19131744, 9957225, 2889538, 72291855 ####[facility] [address] [place] [address] Troponin 0 Hr.on 07-07-2023 Troponin I.cardiac [Mass/Vol] 39.60 pg/mL Abnormal 10.10-27.10 [facility] Comment on above: Result Comment: Crit ical [...] in conjunction with clinical conditions of myocardial infarction.(Par8o High Sensitivity Troponin I Instructions For Use, [employer], March 2018) Performed By: #### 1 6437541, 57695917, 7861902, 67005803, 8507403, 7067312, 22057338 ####[facility] [address] [place] [address] Troponin 3 Hr.on 07-07-2023 Troponin I.cardiac [Mass/Vol] 42.10 pg/mL Abnormal 10.10-27.10 [facility] Comment on above: Result Comment: Crit ical [...] in conjunction with clinical conditions of myocardial infarction.(Par8o High Sensitivity Troponin I Instructions For Use, [employer], March 2018) Performed By: #### 1 [id number] ####[facility] [address] [place] [address] XR Chest Single Viewon 07-07 XR Chest Single View Normal [facility] eGFRon 07-07-2023 GFR/1.73 sq M.predicted among non-blacks MDRD (S/P/Bld) [Vol rate/Area] 77 mL/min/1.73 m2 Normal >=59 [facility] Comment on above: Order Comment: Order added by Discern Expert. Result Comment: Commissioning Manager luis kidney disease could be indicated at eGFR's of less than 60 mL/min/1.73m2. Kidney failure is indicated at less than 15 mL/min/1.73m2. Performed By: #### 1 2782236, 66727446, 6522817, 35975338, 4171050, 2493898, 00350000 ####[facility] [address] [place] [address] BMPon 07-06-2023 Anion gap [Moles/Vol] 5 mmol/L Low 6-16 [facility] Comment on above: Performed By: #### 1 3435972, 0735704 ####[facility] [address] [place] [address] Calcium [Mass/Vol] 8.0 mg/dL Low 8.9-11.1 [facility] Comment on above: Performed By: #### 1 0029111, 2403559 ####[facility] [address] [address] Chloride [Moles/Vol] 109 mmol/L Normal 101-111 [facility] Comment on above: Performed By: #### 1 2343606, 6353519 ####[facility] [address] [place] [address] CO2 [Moles/Vol] 28 mmol/L Normal 21-31 [facility] Comment on above: Performed By: #### 1 9273612, 8890885 ####[facility] [address] [place] [address] Creatinine [Mass/Vol] 0.7 mg/dL Normal 0.5-1.3 [facility] Comment on above: Performed By: #### 1 4234078, 3702365 ####[facility] [address] [place] [place] [address] Glucose [Mass/Vol] 91 mg/dL Normal 55-199 [facility] Comment on above: Result Comment: If t his glucose result represents a fasting glucose, interpretation should refer to the following reference range: 55-99 mg/dL Performed By: #### 1 4618646, 8905777 ####[facility] [address] [place] [address] Potassium [Moles/Vol] 3.9 mmol/L Normal 3.5-5.3 [facility] Comment on above: Performed By: #### 1 7791551, 2845016 ####[facility] [address] [place] [address] Sodium [Moles/Vol] 138 mmol/L Normal 135-145 [facility] Comment on above: Performed By: #### 1 8607372, 5592718 ####[facility] [address] [place] [address] Urea nitrogen [Mass/Vol] 12 mg/dL Normal 5-21 [facility] Comment on above: Performed By: #### 1 9024860, 7344831 ####[facility] [address] [place] [address] Urea nitrogen/Creatinine [Mass ratio] 17 No Units Normal 10-20 [facility] Comment on above: Performed By: #### 1 8535748, 0998269 ####[facility] [address] [place] [address] CHEMISTRYOrdered By: SYSTEM SYSTEM on 07-06-2023 Anion [...] 90 mL/min/1.73 m2 Normal >=59mL/min/1 .73 m2 [facility] Chem S Comment on above: Interpretive Data: C hronic kidney disease could be indicated at eGFR's of less than 60 mL/min/1.73m2. Kidney failure is indicated at less than 15 mL/min/1.73m2. Glucose [Mass/Vol] 91 mg/dL Normal 55 - 199 mg/dL [facility] Remisol Comment on above: Interpretive Data: I f this glucose result represents a fasting glucose, interpretation should refer to the following reference range: 55-99 mg/dL Potassium [Moles/Vol] 3.9 mmol/L Normal 3.5 - 5.3 mmol/L [facility] Remisol Sodium [Moles/Vol] 138 mmol/L Normal 135 - 145 mmol/L [facility] Remisol Urea nitrogen [Mass/Vol] 12 mg/dL Normal 5 - 21 mg/dL [facility] Remisol Urea nitrogen/Creatinine [Mass ratio] 17 mg/mg Normal 10 - 20 [facility] Remisol Discharge Note-Nursingon Discharge Note-Nursing Normal [facility] Inpatient Clinical Summaryon 07-06-2023 Inpatient Clinical Summary Normal [facility] Inpatient Patient Summaryon 07-06-2023 Inpatient Patient Summary Normal [facility] Interdisciplinary Note - Tico e Manageron 07-06-2023 Interdisciplinary Note - Honing Machine Set Up Operator Normal [facility] Comment on above: Result Comment: Elec tronically Signed By: Martín ALFORD, Radha\.br\Date and Time Signed: 07/06/23 12:06 EST Monitor Recordon 07-06-2023 Monitor Record [id number]# 1.00TIFF Normal [facility] Monitor Record [id number]# 1.00TIFF Normal [facility] Monitor Record [id number]# 1.00TIFF Normal [facility] Monitor Record [id number]# 1.00TIFF Normal [facility] Progress Note-Physicianon Progress Note-Physician Normal [facility] Comment on above: Result Comment: Elec tronically Signed By: JAZMÍN MCMAHON, Nahid\.br\Date and Time Signed: 07/06/23 11:56 EST Progress Note-Physician Normal [facility] Comment on above: Result Comment: Elec tronically Signed By: Johan HENRIQUEZ MD\.br\Date and Time Signed: 07/06/23 09:22 EST eGFRon 07-06-2023 GFR/1.73 sq M.predicted among non-blacks MDRD (S/P/Bld) [Vol rate/Area] 90 mL/min/1.73 m2 Normal >=59 [facility] Comment on above: Order Comment: Order added by Discern Expert. Result Comment: Commissioning Manager luis kidney disease could be indicated at eGFR's of less than 60 mL/min/1.73m2. Kidney failure is indicated at less than 15 mL/min/1.73m2. Performed By: #### 1 [id number], 0108819 ####[facility] [address] [address] BMPon 07-05-2023 Anion gap [Moles/Vol] 9 mmol/L Normal 6-16 [facility] Comment on above: Performed By: #### 1 9117276, 9894240 ####[facility] [address] [place] [address] Calcium [Mass/Vol] 8.2 mg/dL Low 8.9-11.1 [facility] Comment on above: Performed By: #### 1 [id number], 6018353 ####[facility] [address] [place] [address] Chloride [Moles/Vol] 105 mmol/L Normal 101-111 [facility] Comment on above: Performed By: #### 1 6840443, 7461502 ####[facility] [address] [place] [address] CO2 [Moles/Vol] 27 mmol/L Normal 21-31 [facility] Comment on above: Performed By: #### 1 4572493, 4147175 ####[facility] [address] [place] [address] Creatinine [Mass/Vol] 0.7 mg/dL Normal 0.5-1.3 [facility] Comment on above: Performed By: #### 1 2585197, 0240467 ####[facility] [address] [place] [address] Glucose [Mass/Vol] 115 mg/dL Normal 55-199 [facility] Comment on above: Result Comment: If t his glucose result represents a fasting glucose, interpretation should refer to the following reference range: 55-99 mg/dL Performed By: #### 1 8233116, 8510529 ####[facility] [address] [place] [address] Potassium [Moles/Vol] 4.3 mmol/L Normal 3.5-5.3 [facility] Comment on above: Performed By: #### 1 6332962, 1567409 ####[facility] [address] [place] [address] Sodium [Moles/Vol] 137 mmol/L Normal 135-145 [facility] Comment on above: Performed By: #### 1 2292416, 2378497 ####[facility] [address] [place] [address] Urea nitrogen [Mass/Vol] 13 mg/dL Normal 5-21 [facility] Comment on above: Performed By: #### 1 8980490, 5698877 ####[facility] [address] [place] [address] Urea nitrogen/Creatinine [Mass ratio] 19 No Units Normal 10-20 [facility] Comment on above: Performed By: #### 1 2800093, 8216241 ####[facility] [address] [place] [address] CHEMISTRYOrdered By: SYSTEM SYSTEM on 07-05-2023 Anion gap [Moles/Vol] 9 mmol/L Normal 6 - 16 mEq/L [facility] Remisol Calcium [Mass/Vol] 8.2 mg/dL Low 8.9 - 11. 1 mg/dL [facility] Remisol Chloride [Moles/Vol] 105 mmol/L Normal 101 - 1 11 mmol/L [facility] Remisol CO2 [Moles/Vol] 27 mmol/L Normal 21 - 31 mmol/L [facility] Remisol Creatinine [Mass/Vol] 0.7 mg/dL Normal 0.5 - 1.3 mg/dL [facility] Remisol GFR/1.73 sq M.predicted among non-blacks MDRD (S/P/Bld) [Vol rate/Area] 90 mL/min/1.73 m2 Normal >=59mL/min/1 .73 m2 [facility] Chem S Comment on above: Interpretive Data: C hronic kidney disease could be indicated at eGFR's of less than 60 mL/min/1.73m2. Kidney failure is indicated at less than 15 mL/min/1.73m2. Glucose [Mass/Vol] 115 mg/dL Normal 55 - 199 mg/dL [facility] Remisol Comment on above: Interpretive Data: I f this glucose result represents a fasting glucose, interpretation should refer to the following reference range: 55-99 mg/dL Potassium [Moles/Vol] 4.3 mmol/L Normal 3.5 - 5.3 mmol/L [facility] Remisol Sodium [Moles/Vol] 137 mmol/L Normal 135 - 145 mmol/L [facility] Remisol Urea nitrogen [Mass/Vol] 13 mg/dL Normal 5 - 21 mg/dL [facility] Remisol Urea nitrogen/Creatinine [Mass ratio] 19 mg/mg Normal 10 - 20 [facility] Remisol CHEMISTRYOrdered By: Lab ROP User on 07-05-2023 Glucose [Mass/Vol] 79 mg/dL Normal 55 - 99 mg/dL [facility] POC Subsection Comment on above: Result Comment: Neli PIÑA POC Username NIKHIL PAULSON Invalid Interpretation Code [facility] POC Subsection Sodium [Moles/Vol] [id number] mmol/L Invalid Interpretation Code [facility] POC Subsection Sodium [Moles/Vol] 069137969 mmol/L Invalid Interpretation Code [facility] POC Subsection Capillary Glucose POCon 06-15 Glucose [Mass/Vol] 79 mg/dL Normal 55-99 [facility] Comment on above: Result Comment: Neli PIÑA Performed By: #### 2 [id number] ####[facility] [address] [place] [address] Cardiovascular Reporton 06-15 Cardiovascular Report [id number]# 1.00TIFF Normal [facility] Interdisciplinary Note - Tico e Manageron 07-05-2023 Interdisciplinary Note - Honing Machine Set Up Operator [facility] Comment on above: Result Comment: Elec tronically Signed By: Margaret Grimm\.br\Date and Time Signed: 07/05/23 15:06 EST Monitor Recordon 07-05-2023 Monitor Record [id number]# 1.00TIFF Normal [facility] Monitor Record [id number]# 1.00TIFF Normal [facility] Monitor Record [id number]# 1.00TIFF Normal [facility] Monitor Record [id number]# 1.00TIFF Normal [facility] Operative Reporton Operative Report Normal [facility] Comment on above: Result Comment: Elec tronically Signed By: MARTINEZ MCMAHON, Johan Patino\.br\Date and Time Signed: 07/05/23 11:46 EST Progress Note-Nurseon 2022 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 Normal [facility] Progress Note-Physicianon Progress Note-Physician Normal [facility] Comment on above: Result Comment: Elec tronically Signed By: JAZMÍN MCMAHON, Nahid\.br\Date and Time Signed: 07/05/23 11:19 EST eGFRon 07-05-2023 GFR/1.73 sq M.predicted among non-blacks MDRD (S/P/Bld) [Vol rate/Area] 90 mL/min/1.73 m2 Normal >=59 [facility] Comment on above: Order Comment: Order added by Discern Expert. Result Comment: Commissioning Manager luis kidney disease could be indicated at eGFR's of less than 60 mL/min/1.73m2. Kidney failure is indicated at less than 15 mL/min/1.73m2. Performed By: #### 1 [id number], 2111210 ####[facility] [address] [place] [address] Interdisciplinary Note - Tico e Manageron 07-04-2023 Interdisciplinary Note - Honing Machine Set Up Operator Normal [facility] Comment on above: Result Comment: Elec tronically Signed By: Margaret Grimm\.br\Date and Time Signed: 07/04/23 10:49 EST Monitor Recordon 07-04-2023 Monitor Record [id number]# 1.00TIFF Normal [facility] Monitor Record [id number]# 1.00TIFF Normal [facility] Monitor Record [id number]# 1.00TIFF Normal [facility] Monitor Record [id number]# 1.00TIFF Normal [facility] Patient Education - Texton 1 09-03-2022 Patient Education - Text [facility] Progress Note-Physicianon Progress Note-Physician Normal [facility] Comment on above: Result Comment: Elec tronically Signed By: JAZMÍN MCMAHON, Nahid\.br\Date and Time Signed: 07/04/23 10:53 EST Progress Note-Physician Normal [facility] Comment on above: Result Comment: Elec tronically Signed By: MARTINEZ MCMAHON, Johan Patino\.br\Date and Time Signed: 07/04/23 08:04 EST Auto Diffon 07-03-2023 Basophils/100 WBC (Bld) 0.3 % Normal 0.0-2.0 [facility] Comment on above: Order Comment: Order Added by Discern Expert. Performed By: #### 2 000679, 3917055, 3538941, 3600408, 96576519, 8901100, 97492172 ####[address] [place] [address] Basophils/Leukocytes Auto (Bld) [Pure # fraction] 0.0 E9/L Normal 0.0-0.2 [facility] Comment on above: Order Comment: Order Added by Discern Expert. Performed By: #### 2 430106, 4252319, 7688318, 0625760, 80161534, 7432433, 21591612 ####[address] [address] Eosinophils/100 WBC (Bld) 0.0 % Normal 0.0-8.0 [facility] Comment on above: Order Comment: Order Added by Discern Expert. Performed By: #### 2 470514, 8520670, 1719185, 1692662, 97928237, 4529843, 58184520 ####[address] [address] Eosinophils/Leukocytes Auto (Bld) [Pure # fraction] 0.0 E9/L Normal 0.0-0.5 [facility] Comment on above: Order Comment: Order Added by Discern Expert. Performed By: #### 2 258211, 8686075, 7547657, 7374318, 31576488, 6724804, 53584492 ####[address] [address] Lymphocytes/100 WBC (Bld) 15.3 % Normal 14.0-50.0 [facility] Comment on above: Order Comment: Order Added by Discern Expert. Performed By: #### 2 960930, 6102772, 9648670, 7578717, 28235753, 0090829, 07716684 ####[address] [address] Lymphocytes/Leukocytes Auto (Bld) [Pure # fraction] 0.9 E9/L Low 1.0-4.0 [facility] Comment on above: Order Comment: Order Added by Discern Expert. Performed By: #### 2 832642, 3184024, 5603665, 8298879, 44850916, 3562458, 40106283 ####[facility] [address] [place] [address] Monocytes/100 WBC (Bld) 7.7 % Normal 4.0-14.0 [facility] Comment on above: Order Comment: Order Added by Discern Expert. Performed By: #### 2 732257, 4336993, 8224303, 8444442, 53150780, 7033852, 40255611 ####[address] [place] [address] Monocytes/Leukocytes Auto (Bld) [Pure # fraction] 0.5 E9/L Normal 0.2-1.0 [facility] Comment on above: Order Comment: Order Added by Discern Expert. Performed By: #### 2 698834, 0230289, 5097017, 1594261, 85803603, 9691507, 53726037 ####[address] [address] Neutrophils/100 WBC (Bld) 76.7 % High 36.0-75.0 [facility] Comment on above: Order Comment: Order Added by Discern Expert. Performed By: #### 2 006681, 7866989, 4248866, 6718878, 81835968, 1459302, 88841139 ####[address] [place] [address] Neutrophils/Leukocytes Auto (Bld) [Pure # fraction] 4.7 E9/L Normal 2.0-7.5 [facility] Comment on above: Order Comment: Order Added by Discern Expert. Performed By: #### 2 471251, 9569452, 3764921, 2585994, 79443284, 0153422, 41685407 ####[address] [place] [address] BMPon 07-03-2023 Creatinine [Mass/Vol] 1.0 mg/dL Normal 0.5-1.3 [facility] Comment on above: Performed By: #### 2 386043, 7061994, 0103561, 2576960, 02255367, 3055751, 75132832 ####[facility] [address] [place] [address] Urea nitrogen [Mass/Vol] 13 mg/dL Normal 5-21 [facility] Comment on above: Performed By: #### 2 754032, 2176341, 9972398, 2448252, 78776249, 8790560, 48051012 ####[facility] [address] [place] [address] Urea nitrogen/Creatinine [Mass ratio] 13 No Units Normal 10-20 [facility] Comment on above: Performed By: #### 2 987997, 2474479, 1344760, 6291683, 61620698, 8738949, 26365193 ####[facility] [address] [place] [address] Anion gap [Moles/Vol] 13 mmol/L Normal 6-16 [facility] Comment on above: Performed By: #### 2 423797, 2102274, 3622454, 4850445, 75870587, 4058927, 39135045 ####[facility] [address] [place] [address] Calcium [Mass/Vol] 9.1 mg/dL Normal 8.9-11.1 [facility] Comment on above: Performed By: #### 2 224677, 4111649, 6922565, 6439670, 79385860, 9405368, 51421102 ####[facility] [address] [place] [address] Chloride [Moles/Vol] 100 mmol/L Low 101-111 [facility] Comment on above: Performed By: #### 2 416047, 0451723, 0143993, 0251548, 21529930, 8600764, 71268012 ####[facility] [address] [place] [address] CO2 [Moles/Vol] 24 mmol/L Normal 21-31 [facility] Comment on above: Performed By: #### 2 972938, 2242353, 6601854, 4507850, 27352587, 8274279, 62628527 ####[facility] [address] [place] [address] Glucose [Mass/Vol] 129 mg/dL Normal 55-199 [facility] Comment on above: Result Comment: If t his glucose result represents a fasting glucose, interpretation should refer to the following reference range: 55-99 mg/dL Performed By: #### 2 209845, 1282492, 0956077, 5455721, 65655120, 7832321, 65028159 ####[facility] [address] [place] [address] Potassium [Moles/Vol] 3.8 mmol/L Normal 3.5-5.3 [facility] Comment on above: Performed By: #### 2 821928, 7037761, 6094511, 6518899, 62022551, 8708188, 46136550 ####[facility] [address] [place] [address] Sodium [Moles/Vol] 133 mmol/L Low 135-145 [facility] Comment on above: Performed By: #### 2 126041, 0368094, 6647967, 8319986, 16691905, 0948757, 43367870 ####[facility] [address] [place] [address] CBC w/ Auto Diffon Erythrocyte distribution width (RBC) [Ratio] 13.5 % Normal 10.9-14.2 [facility] Comment on above: Performed By: #### 2 037232, 5864813, 3844106, 4606774, 00743831, 3898237, 60207473 ####[facility] [address] [place] [address] Hematocrit (Bld) [Volume fraction] 38.5 % Normal 34.0-46.0 [facility] Comment on above: Performed By: #### 2 475249, 2194532, 3693311, 7815154, 04476235, 1995832, 38457305 ####[facility] [address] [place] [address] Hemoglobin (Bld) [Mass/Vol] 12.7 g/dL Normal 12.0-16.0 [facility] Comment on above: Performed By: #### 2 645657, 4230734, 5041654, 4169321, 34128772, 6965430, 54173663 ####[facility] [address] [place] [address] MCH (RBC) [Entitic mass] 29.7 pg Normal 27.0-34.0 [facility] Comment on above: Performed By: #### 2 676832, 0495982, 5082714, 4143719, 80117962, 9559034, 94829221 ####[facility] [address] [place] [address] MCHC (RBC) [Mass/Vol] 32.9 g/dL Normal 31.4-36.0 [facility] Comment on above: Performed By: #### 2 195753, 7947357, 7216062, 3809005, 67594944, 6132496, 47680305 ####[address] [address] MCV (RBC) [Entitic vol] 90.3 fL Normal 80.0-100.0 [facility] Comment on above: Performed By: #### 2 647114, 4594335, 1533251, 8485167, 12823465, 6105966, 72500286 ####[facility] [address] [place] [address] Platelet mean volume (Bld) [Entitic vol] 9.1 fL Normal 6.4-10.8 [facility] Comment on above: Performed By: #### 2 913497, 0455386, 2376764, 0314892, 58258185, 5594659, 77119114 ####[facility] [address] [place] [address] Platelets (Bld) [#/Vol] 183.0 E9/L Normal 150.0-500.0 [facility] Comment on above: Performed By: #### 2 500565, 6889483, 0522342, 6120394, 87563939, 7621251, 62260290 ####[facility] [address] [place] [address] RBC (Bld) [#/Vol] 4.3 E12/L Normal 4.3-5.9 [facility] Comment on above: Performed By: #### 2 769179, 9125506, 9226188, 8974245, 90003431, 1022438, 07144626 ####[facility] [address] [place] [address] WBC corrected for nucl RBC Auto (Bld) [#/Vol] 6.2 E9/L Normal 4.0-11.0 [facility] Comment on above: Performed By: #### 2 922692, 8232276, 2486322, 2147444, 62862036, 7325651, 15588573 ####[facility] [address] [place] [address] CHEMISTRYOrdered By: SYSTEM SYSTEM on 07-03-2023 Cholesterol [...] Sensitivity Troponin I Instructions For Use, Marlys Apache, March 2018) TSH Qn 3.83 m[IU]/L Normal 0.34 - 5.60 mcIU/mL [facility] Remisol CHEMISTRYOrdered By: Dulce Maria Correa on 07-03-2023 HbA1c (Bld) [Mass fraction] 5.5 % Normal <=5.9% [facility] ChemAutoSS Consultation Noteon 07-03-20 Consultation Note Normal [facility] Comment on above: Result Comment: Elec tronically Signed By: Shell MCMAHON, Eb Yeh\.br\Date and Time Signed: 07/03/23 21:35 EST Consultation Note Normal [facility] Comment on above: Result Comment: Elec tronically Signed By: Cody RICHARDSON MD\.br\Date and Time Signed: 07/03/23 19:12 EST ED Clinical Summaryon 2022 ED Clinical Summary Normal [facility] ED Note-Physicianon 07-03-20 ED Note-Physician Normal [facility] Comment on above: Result Comment: Elec tronically Signed By: Layton Crawford M.D.\.br\Date and Time Signed: 07/03/23 08:17 EST ED Patient Education Noteon 07-03-2023 ED Patient Education Note Normal [facility] ED Patient Summaryon 023 ED Patient Summary Normal [facility] Echo Transthoracic Completeo n 07-03-2023 Echo Transthoracic Complete Normal [facility] Hep Func Panelon 07-03-2023 Albumin [Mass/Vol] 3.8 g/dL Normal 3.3-5.0 [facility] Comment on above: Performed By: #### 2 794178, 6106259, 6918973, 5419403, 69587282, 0654100, 97568311 ####[facility] [address] [place] [address] Albumin/Globulin (S) [Mass conc ratio] 1.3 Normal 1.1-2.2 [facility] Comment on above: Performed By: #### 2 448199, 4002916, 7156917, 9800919, 23101320, 8566162, 52042562 ####[address] [place] [address] ALP [Catalytic activity/Vol] 58 Int._Unit/L Normal 21-98 [facility] Comment on above: Performed By: #### 2 654710, 0265750, 9881262, 5593881, 09909461, 0953147, 80814936 ####[address] [address] ALT No additional P-5'-P [Catalytic activity/Vol] 66 Int._Unit/L High 6-46 [facility] Comment on above: Performed By: #### 2 968414, 4274081, 1985224, 2417544, 79825470, 0359711, 09360294 ####[address] [address] AST [Catalytic activity/Vol] 81 Int._Unit/L High 5-43 [facility] Comment on above: Performed By: #### 2 429608, 1450617, 4914999, 1100027, 11786048, 3789354, 67147681 ####[address] [address] Bilirubin [Mass/Vol] 0.5 mg/dL Normal 0.0-1.1 [facility] Comment on above: Performed By: #### 2 616800, 1111262, 1927050, 9975208, 85272987, 5548921, 67204782 ####[address] [address] Bilirubin.direct [Mass/Vol] 0.1 mg/dL Normal 0.1-0.4 [facility] Comment on above: Performed By: #### 2 252917, 3458332, 7279012, 6528974, 92234117, 2525930, 00373277 ####[address] [address] Bilirubin.indirect [Mass or moles/Vol] 0.4 mg/dL Normal 0.1-0.9 [facility] Comment on above: Performed By: #### 2 703416, 5254892, 8377745, 9630157, 89408117, 3779866, 85652739 ####[facility] [address] [place] [address] Globulin (S) [Mass/Vol] 2.9 g/dL Normal 1.4-4.0 [facility] Comment on above: Performed By: #### 2 992834, 1815407, 8436872, 7655467, 71405115, 7368551, 32925509 ####[facility] [address] [place] [address] Protein [Mass/Vol] 6.7 g/dL Normal 6.0-7.8 [facility] Comment on above: Performed By: #### 2 869176, 7469220, 2532027, 3071058, 57561195, 0971064, 86076140 ####[facility] [address] [place] [address] BanS5vpj 07-03-2023 HbA1c (Bld) [Mass fraction] 5.5 % Normal <=5.9 [facility] Comment on above: Performed By: #### 2 002981, 82042516, 6826494, 826795693 ####[facility] [address] [place] [address] Interdisciplinary Note - Tico e Manageron 07-03-2023 Interdisciplinary Note - Honing Machine Set Up Operator [facility] Comment on above: Result Comment: Elec tronically Signed By: Brigitte Nazario\.br\Date and Time Signed: 07/03/23 13:05 EST Lipid Panelon 07-03-2023 Cholesterol [Mass/Vol] 145 mg/dL Normal 120-200 [facility] Comment on above: Performed By: #### 2 001621, 17510508, 9136311, 767132539 ####[facility] [address] [place] [address] Cholesterol in HDL [Mass/Vol] 43 mg/dL Invalid Interpretation Code [facility] Comment on above: Result Comment: HDL > or equal to 60 mg/dL: Low cardiovascular riskHDL < 40 mg/dL : High cardiovascular risk Performed By: #### 2 368526, 89798396, 3699162, 088514265 ####[facility] [address] [place] [address] Cholesterol in LDL [Mass/Vol] 99 mg/dL Normal <=129 [facility] Comment on above: Performed By: #### 2 040265, 72966495, 2680773, 747084110 ####[facility] [address] [place] [address] Cholesterol in VLDL [Mass/Vol] 17 mg/dL Normal 7-40 [facility] Comment on above: Performed By: #### 2 161891, 14885825, 6673768, 576952259 ####[facility] [address] [place] [address] Triglyceride [Mass/Vol] 85 mg/dL Normal <=149 [facility] Comment on above: Performed By: #### 2 358814, 90831358, 8027711, 334005772 ####[facility] [address] [place] [address] Magnesiumon 07-03-2023 Magnesium [Mass/Vol] 2.0 mg/dL Normal 1.3-2.4 [facility] Comment on above: Performed By: #### 2 100131, 0585422, 3387571, 1983341, 48977605, 6083144, 28683549 ####[facility] [address] [facility] [place] [address] Message from Medicareon 06-15 Message from Medicare [id number]# 1.00TIFF Normal [facility] Monitor Recordon 07-03-2023 Monitor Record [id number]# 1.00TIFF Normal [facility] Monitor Record [id number]# 1.00TIFF Normal [facility] Monitor Record [id number]# 1.00TIFF Normal [facility] PT & PTTon 07-03-2023 aPTT Coag (PPP) [Time] 30.2 second(s) Normal 25.1-36.5 [facility] Comment on above: Result Comment: Para meter [...] the same coagulation reagent and instrumentation as [facility]. Currently there are no coagulation studies available worldwide for children to 14 days, and no normal ranges. Heparin therapeutic range (represented by Anti-Factor Xa activity of 0.2 - 0.4 U/mL) corresponds to PTT of 56.6 - 109.0 sec. Performed By: #### 1 9541615 ####[facility] [address] [place] [address] INR Coag (PPP) [Relative time] 1.2 {INR} Invalid Interpretation Code [facility] Comment on above: Result Comment: INR results are specifically intended to assess patients stabilized on long-term Anticoagulation therapy suggested INR?s ?Less Intensive Anticoagulation? 2.0 ? 3.0Conventional Range 3.0 ? 4.5 Performed By: #### 1 9450556 ####[facility] [address] [place] [address] PT Coag (PPP) [Time] 13.2 second(s) High 9.4-12.5 [facility] Comment on above: Result Comment: 15 d [...] the same coagulation reagent and instrumentation as [facility]. Currently there are no coagulation studies available worldwide for children to 14 days, and no normal ranges. Performed By: #### 1 8616576 ####[facility] [address] [place] [address] Progress Note-Physicianon Progress Note-Physician Normal [facility] Comment on above: Result Comment: Elec tronically Signed By: JAZMÍN MCMAHON, Yosifo\.br\Date and Time Signed: 07/03/23 10:57 EST TSH With T4fr Reflexon 07-03 TSH Qn 3.83 m[IU]/L Normal 0.34-5.60 [facility] Comment on above: Performed By: #### 2 662972, 50386614, 7925900, 284859809 ####[facility] [address] [place] [address] Troponinon 07-03-2023 Troponin I.cardiac [Mass/Vol] 27.10 pg/mL Normal 10.10-27.10 [facility] Comment on above: Result Comment: The 95% CI (Confidence Interval) PPV (Positive Predictive Value) for myocardial infarction in females is 38 pg/mL, in males 51 pg/mL. The results should be used in conjunction with clinical conditions of myocardial infarction.(Access High Sensitivity Troponin I Instructions For Use, Marlys Apache, March 2018) Performed By: #### 2 805524, 70989277, 3451427, 836209372 ####[facility] [address] [place] [address] Troponin 0 Hr.on 07-03-2023 Troponin I.cardiac [Mass/Vol] 27.30 pg/mL High 10.10-27.10 [facility] Comment on above: Result Comment: The 95% CI (Confidence Interval) PPV (Positive Predictive Value) for myocardial infarction in females is 38 pg/mL, in males 51 pg/mL. The results should be used in conjunction with clinical conditions of myocardial infarction.(Access High Sensitivity Troponin I Instructions For Use, [employer], March 2018) Performed By: #### 2 940216, 5075983, 8064241, 9328232, 27234136, 9230831, 35862389 ####[facility] [address] [place] [address] Troponin 3 Hr.Ordered By: [employer] on 07-03-2023 Troponin I.cardiac [Mass/Vol] 27.70 pg/mL High 10.10-27.10 [facility] Remisol Comment on above: Interpretive Data: T he 95% CI (Confidence Interval) PPV (Positive Predictive Value) for myocardial infarction in females is 38 pg/mL, in males 51 pg/mL. The results should be used in conjunction with clinical conditions of myocardial infarction. (Access High Sensitivity Troponin I Instructions For Use, [employer], March 2018) Result Comment: The 95% CI (Confidence Interval) PPV (Positive Predictive Value) for myocardial infarction in females is 38 pg/mL, in males 51 pg/mL. The results should be used in conjunction with clinical conditions of myocardial infarction.(Access High Sensitivity Troponin I Instructions For Use, [employer], March 2018) Performed By: #### 1 [id number] ####[facility] [address] [place] [address] UA With Cult Reflexon 2022 Bacteria LM Ql (Urine sed) TRACE Normal Trace [facility] Comment on above: Order Comment: Urina ry Catheter Insertion triggered Urinalysis With Culture Reflex order by discern. Performed By: #### 1 5051000 ####[facility] [address] [place] [address] Bilirubin Ql (U) Negative Normal Negative [facility] Comment on above: Order Comment: Urina ry Catheter Insertion triggered Urinalysis With Culture Reflex order by discern. Performed By: #### 1 4523017 ####[facility] [address] [place] [address] Clarity (U) CLEAR Normal Clear [facility] Comment on above: Order Comment: Urina ry Catheter Insertion triggered Urinalysis With Culture Reflex order by discern. Performed By: #### 1 5750612 ####[facility] [address] [place] [address] Color (U) YELLOW Normal Yellow [facility] Comment on above: Order Comment: Urina ry Catheter Insertion triggered Urinalysis With Culture Reflex order by discern. Performed By: #### 1 6815560 ####[address] [address] Epithelial cells.squamous LM.HPF (Urine sed) [#/Area] 9-10 Normal 0-2 [facility] Comment on above: Order Comment: Urina ry Catheter Insertion triggered Urinalysis With Culture Reflex order by discern. Performed By: #### 1 3016124 ####[facility] [address] [place] [address] Glucose Test strip (U) [Mass/Vol] Negative Normal Negative [facility] Comment on above: Order Comment: Urina ry Catheter Insertion triggered Urinalysis With Culture Reflex order by discern. Performed By: #### 1 2511275 ####[facility] [address] [place] [address] Hemoglobin Ql (U) TRACE Abnormal Negative [facility] Comment on above: Order Comment: Urina ry Catheter Insertion triggered Urinalysis With Culture Reflex order by discern. Performed By: #### 1 2193481 ####[facility] [address] [place] [address] Ketones (U) [Mass/Vol] TRACE Invalid Interpretation Code Negative [facility] Comment on above: Order Comment: Urina ry Catheter Insertion triggered Urinalysis With Culture Reflex order by discern. Performed By: #### 1 1213918 ####[facility] [address] [place] [address] [place].plasma/[place] .RBC (Bld) [Mass ratio] 0-3 Normal 0-3 [facility] Comment on above: Order Comment: Urina ry Catheter Insertion triggered Urinalysis With Culture Reflex order by discern. Performed By: #### 1 2917640 ####[facility] [address] [place] [address] Mucus Ql (Urine sed) TRACE Normal [facility] Comment on above: Order Comment: Urina ry Catheter Insertion triggered Urinalysis With Culture Reflex order by discern. Performed By: #### 1 8923337 ####[address] [address] Nitrite Ql (U) Negative Normal Negative [facility] Comment on above: Order Comment: Urina ry Catheter Insertion triggered Urinalysis With Culture Reflex order by discern. Performed By: #### 1 9548254 ####[address] [address] pH (U) 5.5 [pH] Invalid Interpretation Code 5.0-9.0 [facility] Comment on above: Order Comment: Urina ry Catheter Insertion triggered Urinalysis With Culture Reflex order by discern. Performed By: #### 1 6152426 ####[address] [address] Protein (U) [Mass/Vol] Negative Normal Negative [facility] Comment on above: Order Comment: Urina ry Catheter Insertion triggered Urinalysis With Culture Reflex order by discern. Performed By: #### 1 5788847 ####[address] [address] Specific gravity (U) [Rel density] 1.025 Invalid Interpretation Code 1.005-1.030 [facility] Comment on above: Order Comment: Urina ry Catheter Insertion triggered Urinalysis With Culture Reflex order by discern. Performed By: #### 1 1484708 ####[address] [address] Type of Urine collection method Robles Normal [facility] Comment on above: Order Comment: Urina ry Catheter Insertion triggered Urinalysis With Culture Reflex order by discern. Performed By: #### 1 8717940 ####[address] [place] [address] Urobilinogen Qn (U) 0.2 {Judith'U}/dL Normal 0.0-1.0 [facility] Comment on above: Order Comment: Urina ry Catheter Insertion triggered Urinalysis With Culture Reflex order by discern. Performed By: #### 1 8797781 ####[address] [address] WBC Auto Ql (U) Negative Normal Negative [facility] Comment on above: Order Comment: Urina ry Catheter Insertion triggered Urinalysis With Culture Reflex order by discern. Performed By: #### 1 0254793 ####[address] [address] WBC LM.HPF (Urine sed) [#/Area] 0-5 Normal 0-5 [facility] Comment on above: Order Comment: Urina ry Catheter Insertion triggered Urinalysis With Culture Reflex order by discern. Performed By: #### 1 9446994 ####[address] [address] XR Chest Single Viewon 07-03 XR Chest Single View Normal [facility] eGFRon 07-03-2023 GFR/1.73 sq M.predicted among non-blacks MDRD (S/P/Bld) [Vol rate/Area] 59 mL/min/1.73 m2 Normal >=59 [facility] Comment on above: Order Comment: Order added by Discern Expert. Result Comment: Commissioning Manager luis kidney disease could be indicated at eGFR's of less than 60 mL/min/1.73m2. Kidney failure is indicated at less than 15 mL/min/1.73m2. Performed By: #### 2 403569, 0838269, 2029488, 3285045, 26744956, 6163351, 02804817 ####[facility] [address] [place] [address] CHEMISTRYOrdered By: SYSTEM SYSTEM on 07-02-2023 Albumin [Mass/Vol] 3.8 g/dL Normal 3.3 - 5.0 gm/dL [facility] Remisol Albumin/Globulin [Mass ratio] 1.3 {ratio} Normal [...] 59 mL/min/1.73 m2 Normal >=59mL/min/1 .73 m2 [facility] Chem S Comment on above: Interpretive Data: [...] Sensitivity Troponin I Instructions For Use, Marlys Apache, March 2018) Urea nitrogen [Mass/Vol] 13 mg/dL Normal 5 - 21 mg/dL [facility] Remisol Urea nitrogen/Creatinine [Mass ratio] 13 mg/mg Normal 10 - 20 [facility] Remisol COAGULATIONOrdered By: Lan Eastman on 07-02-2023 aPTT Coag (PPP) [Time] 30.2 s Normal 25.1 - 36.5 second(s) [facility] Auto Coag Comment on above: Interpretive Data: [...] the same coagulation reagent and instrumentation as [facility]. Currently there are no coagulation studies available worldwide for children to 14 days, and no normal ranges. Heparin therapeutic range (represented by Anti-Factor Xa activity of 0.2 - 0.4 U/mL) corresponds to PTT of 56.6 - 109.0 sec. INR Coag (PPP) [Relative time] 1.2 {INR} Invalid Interpretation Code [facility] Auto Coag Comment on above: Interpretive Data: I NR results are specifically intended to assess patients stabilized on long-term Anticoagulation therapy suggested INR s Less Intensive Anticoagulation 2.0 3.0 Conventional Range 3.0 4.5 PT Coag (PPP) [Time] 13.2 s High 9.4 - 1 2.5 second(s) [facility] Auto Coag Comment on above: Interpretive Data: 1 5 days - 4 weeks 1 - 5 months 6 -11 months 1-5 years 6-10 years 11 -17 years Mean: 11.2 (9.5-12.6) Mean: 11.0 (9.7-12.8) Mean: 11.0 (9.8-13.0) Mean: 11.3 (9.9-13.4) Mean: 11.7 (10.0-14.6) Mean: 11.8 (10.0 - 14.1) Pediatric Reference ranges were obtained from a study by Reol Loco et al. prepared from 1437 samples obtained at 7 different centers using the same coagulation reagent and instrumentation as [facility]. Currently there are no coagulation studies available worldwide for children to 14 days, and no normal ranges. Consent for Treatmenton 06-14 Consent for Treatment [id number] [facility] [id number] .00TIFF Normal [facility] HEMATOLOGYOrdered By: SYSTEM SYSTEM on 07-02-2023 Basophils/100 [...] [facility] HemeAutoSS HEMATOLOGYOrdered By: Lan Eastman on 07-02-2023 Erythrocyte distribution width (RBC) [...] Interpretation Code Negative [facility] UA Auto SS [place].plasma/[place] .RBC (Bld) [Mass ratio] 0-3 /HPF Normal [...] [facility] UA Auto SS Urobilinogen Qn (U) 0.5758021 {Judith'U}/dL Normal 0.0 - 1.0 EU/dL [facility] UA Auto SS WBC Auto Ql (U) Negative (07/02/23 10:18 PM) Normal Negative [facility] UA Auto SS WBC LM.HPF (Urine sed) [#/Area] 0-5 /HPF Normal 0-5/HPF [facility] UA Auto SS CT Abdomen/Pelvis w/o Contra ston 07-01-2023 CT Abdomen/Pelvis w/o Contrast Normal [facility] Discharge Instructionson Discharge Instructions [id number] .00TIFF Normal [facility] ED Clinical Summaryon 2022 ED Clinical Summary Normal [facility] ED Note-Physicianon 07-01-20 ED Note-Physician Normal [facility] Comment on above: Result Comment: Elec tronically Signed By: Koby Masterson DO\.br\Date and Time Signed: 07/01/23 01:03 EST ED Patient Education Noteon 07-01-2023 ED Patient Education Note Normal [facility] ED Patient Summaryon 023 ED Patient Summary Normal [facility] RAD - Preliminary Cat Scan R eporton 07-01-2023 RAD - Preliminary Cat Scan Report [id number] .00TIFF Normal [facility] Auto Diffon 06-30-2023 Basophils/100 WBC (Bld) 0.8 % Normal 0.0-2.0 [facility] Comment on above: Order Comment: Order Added by Discern Expert. Performed By: #### 2 084117, 50651054, 4736573, 2207395, 1340050, 5162200 ####[facility] [address] [place] [address] Basophils/Leukocytes Auto (Bld) [Pure # fraction] 0.0 E9/L Normal 0.0-0.2 [facility] Comment on above: Order Comment: Order Added by Discern Expert. Performed By: #### 2 544384, 47899897, 3814434, 6538210, 4377682, 9729758 ####[facility] [address] [place] [address] Eosinophils/100 WBC (Bld) 0.2 % Normal 0.0-8.0 [facility] Comment on above: Order Comment: Order Added by Discern Expert. Performed By: #### 2 556275, 51471824, 9932734, 2834673, 6810790, 3930439 ####[address] [place] [address] Eosinophils/Leukocytes Auto (Bld) [Pure # fraction] 0.0 E9/L Normal 0.0-0.5 [facility] Comment on above: Order Comment: Order Added by Discern Expert. Performed By: #### 2 151249, 91712433, 1348848, 0667699, 3225305, 8171026 ####[address] [place] [address] Lymphocytes/100 WBC (Bld) 26.7 % Normal 14.0-50.0 [facility] Comment on above: Order Comment: Order Added by Discern Expert. Performed By: #### 2 314149, 34764321, 8183215, 1677836, 6310646, 1216336 ####[address] [address] Lymphocytes/Leukocytes Auto (Bld) [Pure # fraction] 1.2 E9/L Normal 1.0-4.0 [facility] Comment on above: Order Comment: Order Added by Discern Expert. Performed By: #### 2 117937, 74548153, 8054963, 1115611, 2824102, 4817528 ####[address] [place] [address] Monocytes/100 WBC (Bld) 9.8 % Normal 4.0-14.0 [facility] Comment on above: Order Comment: Order Added by Discern Expert. Performed By: #### 2 014255, 30776602, 0517073, 9704722, 8245132, 0143619 ####[address] [address] Monocytes/Leukocytes Auto (Bld) [Pure # fraction] 0.4 E9/L Normal 0.2-1.0 [facility] Comment on above: Order Comment: Order Added by Discern Expert. Performed By: #### 2 725620, 57384703, 2128917, 8806714, 6743342, 9317962 ####[facility] [address] [place] [address] Neutrophils/100 WBC (Bld) 62.5 % Normal 36.0-75.0 [facility] Comment on above: Order Comment: Order Added by Discern Expert. Performed By: #### 2 448525, 39824479, 1192386, 8761266, 1061067, 2363718 ####[facility] [address] [place] [address] Neutrophils/Leukocytes Auto (Bld) [Pure # fraction] 2.7 E9/L Normal 2.0-7.5 [facility] Comment on above: Order Comment: Order Added by Discern Expert. Performed By: #### 2 249147, 71195840, 3219616, 3447366, 4127809, 3844040 ####[facility] [address] [place] [address] BMPon 06-30-2023 Creatinine [Mass/Vol] 0.8 mg/dL Normal 0.5-1.3 [facility] Comment on above: Performed By: #### 2 427745, 93661542, 0496157, 1989446, 7947369, 5025968 ####[facility] [address] [place] [address] Urea nitrogen [Mass/Vol] 12 mg/dL Normal 5-21 [facility] Comment on above: Performed By: #### 2 725187, 69604469, 9730220, 0645619, 3329817, 6227413 ####[facility] [address] [place] [address] Urea nitrogen/Creatinine [Mass ratio] 15 No Units Normal 10-20 [facility] Comment on above: Performed By: #### 2 209865, 82344181, 8984494, 5553810, 8767262, 0461266 ####[facility] [address] [place] [address] Anion gap [Moles/Vol] 13 mmol/L Normal 6-16 [facility] Comment on above: Performed By: #### 2 972131, 89898739, 8758998, 5801709, 8735644, 9791297 ####[facility] [address] [place] [address] Calcium [Mass/Vol] 9.5 mg/dL Normal 8.9-11.1 [facility] Comment on above: Performed By: #### 2 943812, 55875058, 1285947, 1659950, 2384224, 1321419 ####[facility] [address] [place] [address] Chloride [Moles/Vol] 103 mmol/L Normal 101-111 [facility] Comment on above: Performed By: #### 2 492785, 10586167, 0591668, 9192303, 0635844, 8003897 ####[facility] [address] [place] [address] CO2 [Moles/Vol] 27 mmol/L Normal 21-31 [facility] Comment on above: Performed By: #### 2 766272, 22873531, 6533200, 9734565, 3387229, 2225243 ####[facility] [address] [place] [address] Glucose [Mass/Vol] 110 mg/dL Normal 55-199 [facility] Comment on above: Result Comment: If t his glucose result represents a fasting glucose, interpretation should refer to the following reference range: 55-99 mg/dL Performed By: #### 2 876993, 08034993, 5036206, 7500134, 5571275, 9721113 ####[facility] [address] [place] [address] Potassium [Moles/Vol] 4.1 mmol/L Normal 3.5-5.3 [facility] Comment on above: Performed By: #### 2 612733, 40519041, 4214126, 3162975, 9102792, 9231994 ####[facility] [address] [place] [address] Sodium [Moles/Vol] 139 mmol/L Normal 135-145 [facility] Comment on above: Performed By: #### 2 917425, 44973345, 0247120, 1788153, 1771876, 3414135 ####[facility] [address] [place] [address] CBC w/ Auto Diffon 3 Erythrocyte distribution width (RBC) [Ratio] 13.7 % Normal 10.9-14.2 [facility] Comment on above: Performed By: #### 2 586482, 55527633, 1303246, 8695950, 1801816, 2002819 ####[facility] [address] [place] [address] Hematocrit (Bld) [Volume fraction] 38.0 % Normal 34.0-46.0 [facility] Comment on above: Performed By: #### 2 461285, 81805463, 3155589, 9282858, 1442893, 9676575 ####[facility] [address] [place] [address] Hemoglobin (Bld) [Mass/Vol] 12.5 g/dL Normal 12.0-16.0 [facility] Comment on above: Performed By: #### 2 940189, 54723129, 3467276, 8873651, 8983707, 4292744 ####[facility] [address] [place] [address] MCH (RBC) [Entitic mass] 29.9 pg Normal 27.0-34.0 [facility] Comment on above: Performed By: #### 2 104545, 81643501, 3182900, 5542165, 1926627, 9549201 ####[facility] [address] [place] [address] MCHC (RBC) [Mass/Vol] 32.9 g/dL Normal 31.4-36.0 [facility] Comment on above: Performed By: #### 2 356519, 25394863, 4421716, 5960478, 1057283, 2544226 ####[address] [place] [address] MCV (RBC) [Entitic vol] 90.9 fL Normal 80.0-100.0 [facility] Comment on above: Performed By: #### 2 689553, 68174510, 3279830, 4922388, 2288378, 0128245 ####[address] [address] Platelet mean volume (Bld) [Entitic vol] 8.7 fL Normal 6.4-10.8 [facility] Comment on above: Performed By: #### 2 439132, 16503758, 3368673, 5528182, 8891764, 0334611 ####[address] [address] Platelets (Bld) [#/Vol] 184.0 E9/L Normal 150.0-500.0 [facility] Comment on above: Performed By: #### 2 141714, 57378863, 7065994, 6712255, 7886468, 1113628 ####[address] [address] RBC (Bld) [#/Vol] 4.2 E12/L Low 4.3-5.9 [facility] Comment on above: Performed By: #### 2 412278, 81181352, 2381436, 6859998, 3064980, 7523258 ####[address] [address] WBC corrected for nucl RBC Auto (Bld) [#/Vol] 4.4 E9/L Normal 4.0-11.0 [facility] Comment on above: Performed By: #### 2 739074, 15583461, 7059194, 6013915, 9881774, 5322825 ####[address] [address] CHEMISTRYOrdered By: SYSTEM SYSTEM on 06-30-2023 Albumin [...] 77 mL/min/1.73 m2 Normal >=59mL/min/1 .73 m2 [facility] Chem S Comment on above: Interpretive Data: [...] Treatmenton 06-14 Consent for Treatment [id number]#1 .00TIFF Normal [facility] Consent for Treatment [id number]#1 .00TIFF [facility] HEMATOLOGYOrdered By: SYSTEM SYSTEM on 06-30-2023 [...] Bilirubin.indirect [Mass or moles/Vol] UTC Abnormal 0.1-0.9 [facility] Comment on above: Result Comment: Resu lt verified by Discern Rule. Performed result UTC (Unable to Calculate) was sent as an Alpha code due the inability to calculate a valid numeric value. Performed By: #### 2 323363, 15691292, 5591102, 2294566, 2580977, 5216283 ####[address] [place] [address] Albumin [Mass/Vol] 3.8 g/dL Normal 3.3-5.0 [facility] Comment on above: Performed By: #### 2 290729, 63820935, 9127993, 2611411, 8650998, 7831721 ####[address] [address] Albumin/Globulin (S) [Mass conc ratio] 1.3 Normal 1.1-2.2 [facility] Comment on above: Performed By: #### 2 289669, 67349998, 3696931, 5870638, 7551771, 6575606 ####[address] [address] ALP [Catalytic activity/Vol] 56 Int._Unit/L Normal 21-98 [facility] Comment on above: Performed By: #### 2 081018, 70172761, 0364638, 8744706, 3446783, 5047098 ####[address] [address] ALT No additional P-5'-P [Catalytic activity/Vol] 50 Int._Unit/L High 6-46 [facility] Comment on above: Performed By: #### 2 672018, 30359583, 0498840, 3302857, 6849835, 6815786 ####[address] [place] [address] AST [Catalytic activity/Vol] 45 Int._Unit/L High 5-43 [facility] Comment on above: Performed By: #### 2 293619, 02346673, 1230769, 9952070, 1856666, 7117934 ####[address] [place] [address] Bilirubin [Mass/Vol] 0.5 mg/dL Normal 0.0-1.1 [facility] Comment on above: Performed By: #### 2 781154, 09256028, 8817403, 6401559, 2298878, 5946162 ####[facility] [address] [place] [address] Globulin (S) [Mass/Vol] 3.0 g/dL Normal 1.4-4.0 [facility] Comment on above: Performed By: #### 2 572458, 51896024, 3721892, 1618304, 8891936, 8101708 ####[facility] [address] [place] [address] Protein [Mass/Vol] 6.8 g/dL Normal 6.0-7.8 [facility] Comment on above: Performed By: #### 2 501859, 43485217, 4610726, 8227519, 0219725, 2310405 ####[facility] [address] [place] [address] Bilirubin.direct [Mass/Vol] mg/dL Normal 0.1-0.4 [facility] Comment on above: Performed By: #### 2 554564, 32374572, 3879130, 6427580, 8094195, 1015531 ####[facility] [address] [place] [address] Lipase Levelon 06-30-2023 Lipase [Catalytic activity/Vol] 31 U/L Normal 13-58 [facility] Comment on above: Performed By: #### 2 193251, 75911188, 8631555, 3496710, 4220540, 9271407 ####[facility] [address] [place] [address] UA With Cult Reflexon 2022 Bacteria LM Ql (Urine sed) TRACE Normal Trace [facility] Comment on above: Performed By: #### 1 2567027 ####[facility] [address] [place] [address] Bilirubin Ql (U) Negative Normal Negative [facility] Comment on above: Performed By: #### 1 3032813 ####[address] [address] Clarity (U) CLEAR Normal Clear [facility] Comment on above: Performed By: #### 1 8943680 ####[address] [address] Color (U) YELLOW Normal Yellow [facility] Comment on above: Performed By: #### 1 9173675 ####[address] [address] Epithelial cells.squamous LM.HPF (Urine sed) [#/Area] 0-2 Normal 0-2 [facility] Comment on above: Performed By: #### 1 7901575 ####[address] [address] Glucose Test strip (U) [Mass/Vol] Negative Normal Negative [facility] Comment on above: Performed By: #### 1 9547195 ####[address] [address] Hemoglobin Ql (U) TRACE Abnormal Negative [facility] Comment on above: Performed By: #### 1 8832810 ####[address] [address] Ketones (U) [Mass/Vol] Negative Normal Negative Fi [facility] Comment on above: Performed By: #### 1 9208410 ####[address] [address] [place].plasma/[place] .RBC (Bld) [Mass ratio] 0-3 Normal 0-3 [facility] Comment on above: Performed By: #### 1 6676797 ####[address] [address] Nitrite Ql (U) Negative Normal Negative [facility] Comment on above: Performed By: #### 1 4107538 ####[address] [address] pH (U) 6.5 [pH] Invalid Interpretation Code 5.0-9.0 [facility] Comment on above: Performed By: #### 1 4256202 ####[facility] [address] [place] [address] Protein (U) [Mass/Vol] Negative Normal Negative [facility] Comment on above: Performed By: #### 1 1390468 ####[facility] [address] [place] [address] Specific gravity (U) [Rel density] <=1.005 Invalid Interpretation Code 1.005-1.030 [facility] Comment on above: Performed By: #### 1 2752311 ####[facility] [address] [place] [address] Type of Urine collection method Clean Catch Normal [facility] Comment on above: Performed By: #### 1 5579171 ####[address] [address] Urobilinogen Qn (U) 0.2 {Judith'U}/dL Normal 0.0-1.0 [facility] Comment on above: Performed By: #### 1 1029694 ####[facility] [address] [place] [address] WBC Auto Ql (U) Negative Normal Negative [facility] Comment on above: Performed By: #### 1 9588153 ####[facility] [address] [place] [address] WBC LM.HPF (Urine sed) [#/Area] 0-5 Normal 0-5 [facility] Comment on above: Performed By: #### 1 0644533 ####[facility] [address] [place] [address] URINALYSISOrdered By: Brian Davis on 06-30-2023 Bacteria [...] PM) Normal Negative [facility] UA Auto SS [place].plasma/[place] .RBC (Bld) [Mass ratio] 0-3 /HPF Normal [...] [facility] UA Auto SS Urobilinogen Qn (U) 0.0532112 {Judith'U}/dL Normal 0.0 - 1.0 EU/dL [facility] UA Auto SS WBC Auto Ql (U) Negative (06/30/23 8:00 PM) Normal Negative [facility] UA Auto SS WBC LM.HPF (Urine sed) [#/Area] 0-5 /HPF Normal 0-5/HPF [facility] UA Auto SS eGFRon 06-30-2023 GFR/1.73 sq M.predicted among non-blacks MDRD (S/P/Bld) [Vol rate/Area] 77 mL/min/1.73 m2 Normal >=59 [facility] Comment on above: Order Comment: Order added by Discern Expert. Result Comment: Commissioning Manager luis kidney disease could be indicated at eGFR's of less than 60 mL/min/1.73m2. Kidney failure is indicated at less than 15 mL/min/1.73m2. Performed By: #### 2 495013, 16105500, 0576970, 5509837, 3764202, 2306383 ####[facility] [address] [place] [address] Consent for Procedure/Surger yon 05-23-2023 Consent for Procedure/Surgery [id number] .00TIFF Normal [facility] Consent for Treatmenton 05-14 Consent for Treatment [id number]#1 .00TIFF [facility] IntraOperative Documentson IntraOperative Documents [id number]#1 .00TIFF Normal [facility] Main OR Intraoperative Recor don 05-23-2023 Main OR Intraoperative Record Normal [facility] Main OR Preoperative Recordo n 05-23-2023 Main OR Preoperative Record Normal [facility] Operative Reporton Operative Report Normal [facility] Comment on above: Result Comment: Elec tronically Signed By: Micheline BROOKS MD\.br\Date and Time Signed: 05/23/23 15:51 EDT Patient Educationon 05-23-20 Patient Education Normal [facility] Ambulatory Visit Summaryon 0 04-26-2023 Ambulatory Visit Summary Normal [facility] Patient Educationon 04-26-20 Patient Education Normal [facility] Urology Office/Clinic Noteon 04-26-2023 Urology Office/Clinic Note Normal [facility] Comment on above: Result Comment: Elec tronically Signed By: Micheline BROOKS MD\.br\Date and Time Signed: 04/26/23 16:11 EDT\.br\Electronically Co-Signed By: Felisa Bautista.br\Date and Time Co-Signed: 04/26/23 16:10 EDT ED Note-Physicianon 04-07-20 ED Note-Physician Normal [facility] Comment on above: Result Comment: Elec tronically Signed By: Molina Mendoza PA-C\.br\Date and Time Signed: 04/04/23 16:28 EDT\.br\Electronically Co-Signed By: Jeff Cross DO\.br\Date and Time Co-Signed: 04/07/23 07:[address] Abdomen/Pelvis w/o Contra ston 04-04-2023 CT Abdomen/Pelvis w/o Contrast [facility] Consent for Treatmenton 03-15 Consent for Treatment [id number]#1 .00CD:127 [facility] Discharge Instructionson Discharge Instructions [id number]# 1.00CD:127 [facility] ED Clinical Summaryon 2022 ED Clinical Summary Normal [facility] ED Patient Education Noteon 04-04-2023 ED Patient Education Note Normal [facility] ED Patient Summaryon 023 ED Patient Summary [facility] ED Traumaon 04-04-2023 ED Trauma [id number]# 1.00CD:127 [facility] XR Shoulder Complete Righton 04-04-2023 XR Shoulder Complete Right [facility] Discharge Instructionson Discharge Instructions [id number]#1 .00CD:127 Normal [facility] ED Clinical Summaryon 2022 ED Clinical Summary Normal [facility] ED Note-Nursingon 01-29-2023 ED Note-Nursing [facility] ED Note-Physicianon 01-30-20 23 ED Note-Physician [facility] Comment on above: Result Comment: Elec tronically Signed By: Mde Medeiros PA-C.br\Date and Time Signed: 01/28/23 22:46 EDT\.br\Electronically Co-Signed By: Med Medeiros PA-C.br\Date and Time Co-Signed: 01/28/23 22:55 EDT\.br\Electronically Co-Signed By: Layton Crawford M.D.\.br\Date and Time Co-Signed: 01/29/23 01:02 EDT ED Patient Education Noteon 01-29-2023 ED Patient Education Note Normal [facility] ED Patient Summaryon 023 ED Patient Summary Normal [facility] UA With Cult Reflexon 2022 Bilirubin Ql (U) Negative Normal Negative [facility] Comment on above: Performed By: #### 1 [id number] ####[facility] [address] [place] [address] Clarity (U) CLEAR Normal Clear [facility] Comment on above: Performed By: #### 1 7099563 ####[facility] [address] [place] [address] Color (U) YELLOW Normal Yellow [facility] Comment on above: Performed By: #### 1 9559778 ####[facility] [address] [place] [address] Epithelial cells.squamous LM.HPF (Urine sed) [#/Area] 3-4 Normal 0-2 [facility] Comment on above: Performed By: #### 1 5160214 ####[facility] [address] [place] [address] Glucose Test strip (U) [Mass/Vol] Negative Normal Negative [facility] Comment on above: Performed By: #### 1 8787209 ####[facility] [address] [place] [address] Hemoglobin Ql (U) 1+ Abnormal Negative [facility] Comment on above: Performed By: #### 1 5757562 ####[facility] [address] [place] [address] Ketones (U) [Mass/Vol] Negative Normal Negative Fi [facility] Comment on above: Performed By: #### 1 4390167 ####[facility] [address] [place] [address] [place] [place].plasma/[place] .RBC (Bld) [Mass ratio] 0-3 Normal 0-3 [facility] Comment on above: Performed By: #### 1 [id number] ####[facility] [address] [place] [address] Nitrite Ql (U) Negative Normal Negative [facility] Comment on above: Performed By: #### 1 [id number] ####[facility] [address] [place] [address] pH (U) 6.0 [pH] Invalid Interpretation Code 5.0-9.0 [facility] Comment on above: Performed By: #### 1 [id number] ####[facility] [address] [place] [address] Protein (U) [Mass/Vol] Negative Normal Negative [facility] Comment on above: Performed By: #### 1 [id number] ####[address] [address] Specific gravity (U) [Rel density] 1.025 Invalid Interpretation Code 1.005-1.030 [facility] Comment on above: Performed By: #### 1 [id number] ####[facility] [address] [place] [address] Type of Urine collection method Clean Catch Normal [facility] Comment on above: Performed By: #### 1 [id number] ####[address] [address] Urobilinogen Qn (U) 1.0 {Judith'U}/dL Normal 0.0-1.0 [facility] Comment on above: Performed By: #### 1 [id number] ####[facility] [address] [place] [address] WBC Auto Ql (U) Negative Normal Negative [facility] Comment on above: Performed By: #### 1 [id number] ####[facility] [address] [place] [address] WBC LM.HPF (Urine sed) [#/Area] 0-5 Normal 0-5 [facility] Comment on above: Performed By: #### 1 [id number] ####Farshad [facility] [address] [place] [address] XR Hand 3+ Views Lefton 01-12 XR Hand 3+ Views Left Normal Fis her [facility] Consent for Treatmenton 01-12 Consent for Treatment [id number] .[id number]:127 Normal Farshad [facility] URINALYSISOrdered By: Lan Eastman on 01-28-2023 [...] PM) Normal Negative [facility] UA Auto SS [place].plasma/[place] .RBC (Bld) [Mass ratio] 0-3 /HPF Normal [...] [facility] UA Auto SS Urobilinogen Qn (U) 1.8267338 {Judith'U}/dL Normal 0.0 - 1.0 EU/dL [facility] UA Auto SS WBC Auto Ql (U) Negative (01/28/23 11:04 PM) Normal Negative [facility] UA Auto SS WBC LM.HPF (Urine sed) [#/Area] 0-5 /HPF Normal 0-5/HPF [facility] UA Auto SS Coding Summary.on 12-08-2022 Coding Summary. Normal [facility] MA Mamm Screen w/CAD if perf and 3D Bilon 12-06-2022 MA Mamm Screen w/CAD if perf and 3D Zac Normal [facility] Consent for Treatmenton 11-13 Consent for Treatment [id number] .00CD:127 [facility] Coding Summary.on 10-27-2022 Coding Summary. Normal [facility] Consent for Procedure/Surger yon 10-25-2022 Consent for Procedure/Surgery [id number] .00CD:127 [facility] Consent for Treatmenton 10-12 Consent for Treatment [id number] .00CD:127 [facility] IntraOperative Documentson 0 10-25-2022 IntraOperative Documents [id number] .00CD:127 [facility] Main OR Intraoperative Recor don 10-25-2022 Main OR Intraoperative Record [facility] Main [place] Preoperative Recordo n 10-25-2022 Main [place] Preoperative Record [facility] Operative Reporton Operative Report Normal [facility] Comment on above: Result Comment: Elec tronically Signed By: CECILIA MCMAHON, Micheline Hurtado.br\Date and Time Signed: 10/25/22 10:30 EDT Patient Educationon 10-26-19 Patient Education [facility] Physician Orderon 10-20-2022 Physician Order [id number] .00CD:127 [facility] Q - SARS CoV2 COVID 19 Ab Ig Clarence 08-20-2021 SARS-CoV-2 (COVID-19) Ab IA Qn 25.84 index High <1.00 [facility] 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 Comment on above: Order Comment: [facility] Testing performed at: QPT, [employer] [facility], [address], [address] [place], [address], Fashion Marketer: Ab Vincent MD [facility] Collection Date/Time: [facility] [...] providers and patients using the following websites: [email or web address].[email or web address]/[email or web address]-HCP http://patient.[email or web address]/[facility]-Patients Healthcare Providers: For additional information please refer to: http://education.Baoku.Nginx/faq/PXT747 (This link is being provided for informational/educational purposes only.) This test has been authorized by the FDA under an Emergency Use Authorization (EUA) for use by authorized laboratories. The FDA authorized labeling is available on the [employer] website: www.HedgeChatter.Nginx/Covid19. Performed By: #### 3 [id number] #### [facility] Default [address] [place] [address] Reference Laboratory Testing Ordered By: Phase III DevelopmentUser on 08-12-2021 SARS-CoV-2 (COVID-19) RNA JORDAN+probe Ql (Resp) Not detected Invalid Interpretation Code Not Detected [facility] [employer] Comment on above: Result Comment: This nucleic acid amplification test was developed and its performance characteristics determined by [employer]. Nucleic acid amplification tests include RT-PCR and [...] detected) result in this assay. Performed at: [address] [id number] PhD Emily Fraser Vital Signs Date Time Vital Sign Value Performing Clinician Facility 10-05-2023 21:54-0500 Diastolic blood pressure 81 mm[Hg] Kaylinn Dokken [facility] 10-05-2023 21:54-0500 Heart rate 75 /min Kaylinn Dokken [facility] 10-05-2023 21:54-0500 Respiratory rate 19 /min Kaylinn Dokken [facility] 10-05-2023 21:54-0500 SaO2% (BldA) [Mass fraction] 100 % Kaylinn Dokken [facility] 10-05-2023 21:54-0500 Systolic blood pressure 144 mm[Hg] Kaylinn Dokken [facility] 10-05-2023 18:04-0500 Body temperature 97.7 [degF] Kaylinn Dokken [facility] 10-05-2023 18:04-0500 Diastolic blood pressure 78 mm[Hg] Kaylinn Dokken [facility] 10-05-2023 18:04-0500 Heart rate 95 /min Kaylinn Dokken [facility] 10-05-2023 18:04-0500 Respiratory rate 22 /min Kaylinn Dokken [facility] 10-05-2023 18:04-0500 SaO2% (BldA) [Mass fraction] 100 % Kaylinn Dokken [facility] 10-05-2023 18:04-0500 Systolic blood pressure 131 mm[Hg] Kaylinn Dokken [facility] 09-26-2023 09:13-0500 Body height 165.1 cm Ana Drexel Hill INSECTICIDE SPRAYER.MICROBIOLOGY LAB ANALYST Work Phone: [facility] 09-26-2023 09:13-0500 Body weight 50.8 kg Ana Drexel Hill INSECTICIDE SPRAYER.MICROBIOLOGY LAB ANALYST Work Phone: [facility] 09-26-2023 09:13-0500 Diastolic blood pressure 57 mm[Hg] Ana Drexel Hill INSECTICIDE SPRAYER.MICROBIOLOGY LAB ANALYST Work Phone: [facility] 09-26-2023 09:13-0500 Heart rate 72 /min Ana Drexel Hill INSECTICIDE SPRAYER.MICROBIOLOGY LAB ANALYST Work Phone: [facility] 09-26-2023 09:13-0500 Respiratory rate 20 /min Ana Drexel Hill INSECTICIDE SPRAYER.MICROBIOLOGY LAB ANALYST Work Phone: [facility] 09-26-2023 09:13-0500 SaO2% (BldA) [Mass fraction] 98 % Ana Drexel Hill INSECTICIDE SPRAYER.MICROBIOLOGY LAB ANALYST Work Phone: [facility] 09-26-2023 09:13-0500 Systolic blood pressure 118 mm[Hg] Ana Drexel Hill INSECTICIDE SPRAYER.MICROBIOLOGY LAB ANALYST Work Phone: [facility] 09-18-2023 17:51-0500 Body height 165.1 cm Peggy Nazario MD Work Phone: [facility] 09-18-2023 17:51-0500 Body mass index (BMI) [Ratio] 19.34 kg/m2 Peggy Nazario MD Work Phone: [facility] 09-18-2023 17:51-0500 Body temperature 98.01 [degF] Peggy Nazario MD Work Phone: [facility] 09-18-2023 17:51-0500 Body weight 52.71 kg Peggy Nazario MD Work Phone: [facility] 09-18-2023 17:51-0500 Diastolic blood pressure 66 mm[Hg] Peggy Nazario MD Work Phone: [facility] 09-18-2023 17:51-0500 Heart rate 75 /min Peggy Nazario MD Work Phone: [facility] 09-18-2023 17:51-0500 SaO2% (BldA) [Mass fraction] 99 % Peggy Nazario MD Work Phone: [facility] 09-18-2023 17:51-0500 Systolic blood pressure 136 mm[Hg] Peggy Nazario MD Work Phone: [facility] 09-17-2023 06:00-0500 Diastolic blood pressure 60 mm[Hg] Parveen Armen [facility] 09-17-2023 06:00-0500 Heart rate 61 /min Parveen Armen [facility] 09-17-2023 06:00-0500 Mean blood pressure 79 mm[Hg] Parveen Armen [facility] 09-17-2023 06:00-0500 Respiratory rate 11 /min Parveen Armen [facility] 09-17-2023 06:00-0500 SaO2% (BldA) [Mass fraction] 100 % Parveen Armen [facility] 09-17-2023 06:00-0500 Systolic blood pressure 118 mm[Hg] Parveen Armen [facility] 09-17-2023 05:06-0500 Body temperature 96.98 [degF] Parveen Armen [facility] 09-17-2023 05:06-0500 Diastolic blood pressure 58 mm[Hg] Parveen Armen [facility] 09-17-2023 05:06-0500 gluc 79 mg/dL Parveen Armen [facility] 09-17-2023 05:06-0500 gluc Parveen Armen [facility] 09-17-2023 05:06-0500 Heart rate 85 /min Parveen Armen [facility] 09-17-2023 05:06-0500 Respiratory rate 20 /min Parveen Armen [facility] 09-17-2023 05:06-0500 SaO2% (BldA) [Mass fraction] 98 % Parveen Armen [facility] 09-17-2023 05:06-0500 Systolic blood pressure 140 mm[Hg] Parveen Armen [facility] 09-12-2023 06:38-0500 Diastolic blood pressure 93 mm[Hg] Parveen Armen [facility] 09-12-2023 06:38-0500 Heart rate 78 /min Parveen Armen [facility] 09-12-2023 06:38-0500 Mean blood pressure 109 mm[Hg] Parveen Armen [facility] 09-12-2023 06:38-0500 Respiratory rate 13 /min Parveen Armen [facility] 09-12-2023 06:38-0500 SaO2% (BldA) [Mass fraction] 98 % Parveen Armen [facility] 09-12-2023 06:38-0500 Systolic blood pressure 142 mm[Hg] Parveen Armen [facility] 09-12-2023 05:58-0500 Diastolic blood pressure 96 mm[Hg] Parveen Armen [facility] 09-12-2023 05:58-0500 Heart rate 55 /min Parveen Armen [facility] 09-12-2023 05:58-0500 Mean blood pressure 112 mm[Hg] Parveen Armen [facility] 09-12-2023 05:58-0500 Respiratory rate 16 /min Parveen Armen [facility] 09-12-2023 05:58-0500 SaO2% (BldA) [Mass fraction] 100 % Parveen Armen [facility] 09-12-2023 05:58-0500 Systolic blood pressure 144 mm[Hg] Parveen Armen [facility] 09-12-2023 04:56-0500 Diastolic blood pressure 77 mm[Hg] Parveen Armen [facility] 09-12-2023 04:56-0500 Heart rate 60 /min Parveen Armen [facility] 09-12-2023 04:56-0500 Mean blood pressure 94 mm[Hg] Parveen Armen [facility] 09-12-2023 04:56-0500 Respiratory rate 18 /min Parveen Armen [facility] 09-12-2023 04:56-0500 SaO2% (BldA) [Mass fraction] 100 % Parveen Armen [facility] 09-12-2023 04:56-0500 Systolic blood pressure 129 mm[Hg] Parveen Armen [facility] 09-12-2023 04:27-0500 gluc 96 mg/dL Parveen Armen [facility] 09-12-2023 04:27-0500 gluc Parveen Armen [facility] 09-12-2023 04:13-0500 Body temperature 96.98 [degF] Parveen Ayers [facility] 09-12-2023 04:13-0500 Heart rate 83 /min Parveen Ayers [facility] 09-12-2023 04:13-0500 Respiratory rate 16 /min Parveen Ayers [facility] 07-21-2023 06:46-0500 Blood Pressure Location Johan HENRIQUEZ [facility] 07-21-2023 06:46-0500 Diastolic blood pressure 57 mm[Hg] Johan HENRIQUEZ [facility] 07-21-2023 06:46-0500 Heart rate 81 /min Johan HENRIQUEZ [facility] 07-21-2023 06:46-0500 Respiratory rate 18 /min Johan HENRIQUEZ [facility] 07-21-2023 06:46-0500 SaO2% (BldA) [Mass fraction] 100 % Johan HENRIQUEZ [facility] 07-21-2023 06:46-0500 Systolic blood pressure 118 mm[Hg] Johan HENRIQUEZ [facility] 07-20-2023 09:56-0500 Blood Pressure Location Johan HENRIQUEZ [facility] 07-20-2023 09:56-0500 Diastolic blood pressure 52 mm[Hg] Johan HENRIQUEZ [facility] 07-20-2023 09:56-0500 Heart rate 62 /min Johan HENRIQUEZ [facility] 07-20-2023 09:56-0500 SaO2% (BldA) [Mass fraction] 98 % Johan HENRIQUEZ [facility] 07-20-2023 09:56-0500 Systolic blood pressure 105 mm[Hg] Johan HENRIQUEZ [facility] 07-07-2023 12:38-0500 Diastolic blood pressure 59 mm[Hg] Jeff Cross [facility] 07-07-2023 12:38-0500 Heart rate 94 /min Jeff Wadee [facility] 07-07-2023 12:38-0500 Respiratory rate 13 /min Jeff Wadee [facility] 07-07-2023 12:38-0500 SaO2% (BldA) [Mass fraction] 94 % Jeff Wadee [facility] 07-07-2023 12:38-0500 Systolic blood pressure 123 mm[Hg] Jeff Wadee [facility] 07-07-2023 12:00-0500 Diastolic blood pressure 83 mm[Hg] Jeff Tay [facility] 07-07-2023 12:00-0500 Heart rate 102 /min Jeff Wadee [facility] 07-07-2023 12:00-0500 Mean blood pressure 96 mm[Hg] Jeff Tay [facility] 07-07-2023 12:00-0500 Respiratory rate 17 /min Jeff Wadee [facility] 07-07-2023 12:00-0500 SaO2% (BldA) [Mass fraction] 96 % Jeff Tay [facility] 07-07-2023 11:34-0500 Diastolic blood pressure 73 mm[Hg] Jeff Tay [facility] 07-07-2023 11:34-0500 Heart rate 93 /min Jeff Tay [facility] 07-07-2023 11:34-0500 Respiratory rate 18 /min Jeff Cross [facility] 07-07-2023 11:34-0500 SaO2% (BldA) [Mass fraction] 94 % Jeff Cross [facility] 07-07-2023 11:34-0500 Systolic blood pressure 109 mm[Hg] Jeff Cross [facility] 07-07-2023 09:52-0500 Heart rate 103 /min Jeff Cross [facility] 07-07-2023 08:57-0500 Body temperature 97.88 [degF] Jeff Cross [facility] 07-07-2023 08:57-0500 Heart rate 134 /min Jeff Cross [facility] 07-07-2023 08:57-0500 Respiratory rate 24 /min Jeff Cross [facility] 07-06-2023 14:03-0500 Hourly Rounding Ronobir ABDI [facility] 07-06-2023 14:03-0500 Promise to Return Ronobir ABDI [facility] 07-06-2023 13:34-0500 Hourly Rounding Ronobir ABDI [facility] 07-06-2023 13:00-0500 Hourly Rounding Ronobir ABDI [facility] 07-06-2023 13:00-0500 Promise to Return Ronobir ABDI [facility] 07-06-2023 12:07-0500 Promise to Return Ronobir ABDI [facility] 07-06-2023 12:00-0500 Blood Pressure Location Ronobir ABDI [facility] 07-06-2023 12:00-0500 Body temperature 98.06 [degF] Ronobir ABDI [facility] 07-06-2023 12:00-0500 Diastolic blood pressure 69 mm[Hg] Ronobir ABDI [facility] 07-06-2023 12:00-0500 Heart rate 78 /min Ronobir ABDI [facility] 07-06-2023 12:00-0500 Mean blood pressure 81 mm[Hg] Ronobir ABDI [facility] 07-06-2023 12:00-0500 SaO2% (BldA) [Mass fraction] 94 % Ronobir ABDI [facility] 07-06-2023 12:00-0500 Systolic blood pressure 105 mm[Hg] Ronobir ABDI [facility] 07-06-2023 10:00-0500 Diastolic blood pressure 66 mm[Hg] Ronobir ABDI [facility] 07-06-2023 10:00-0500 Heart rate 77 /min Ronobir ABDI [facility] 07-06-2023 10:00-0500 Mean blood pressure 78 mm[Hg] Ronobir ABDI [facility] 07-06-2023 10:00-0500 Systolic blood pressure 103 mm[Hg] Ronobir ABDI [facility] 07-06-2023 07:00-0500 Body temperature 97.7 [degF] Ronobir ABDI [facility] 07-06-2023 07:00-0500 Diastolic blood pressure 60 mm[Hg] Ronobir ABDI [facility] 07-06-2023 07:00-0500 SaO2% (BldA) [Mass fraction] 93 % Ronobir ABDI [facility] 07-06-2023 07:00-0500 Systolic blood pressure 97 mm[Hg] Ronobir ABDI [facility] 07-06-2023 00:18-0500 Body temperature 97.7 [degF] Ronobir ABDI [facility] 07-06-2023 00:18-0500 SaO2% (BldA) [Mass fraction] 93 % Ronobir ABDI [facility] 07-05-2023 22:10-0500 Mean blood pressure 79 mm[Hg] Ronobir ABDI [facility] 07-05-2023 16:03-0500 Mean blood pressure 88 mm[Hg] Ronobir ABDI [facility] 07-05-2023 11:18-0500 Mean blood pressure 77 mm[Hg] Ronobir ABDI [facility] 07-05-2023 11:18-0500 Body temperature 98.06 [degF] Ronobir ABDI [facility] 07-05-2023 09:59-0500 Mean blood pressure 86 mm[Hg] Ronobir ABDI [facility] 07-05-2023 09:58-0500 Body temperature 98.42 [degF] Ronobir ABDI [facility] 07-04-2023 19:23-0500 Body temperature 97.7 [degF] Ronobir ABDI [facility] 07-03-2023 18:22-0500 BP/Pulse Patient Position Ronobir ABDI [facility] 07-03-2023 14:00-0500 Respiratory rate 17 /min Ronobir ABDI [facility] 07-03-2023 06:46-0500 Respiratory rate 18 /min Ronobir ABDI [facility] 07-03-2023 06:45-0500 BP/Pulse Patient Position Ronobir ABDI [facility] 07-03-2023 04:30-0500 Respiratory rate 16 /min Ronobir ABDI [facility] 07-03-2023 02:45-0500 Heart rate 90 /min Ronobir ABDI [facility] 07-03-2023 02:30-0500 Respiratory rate 12 /min Ronobir ABDI [facility] 07-03-2023 02:15-0500 Respiratory rate 13 /min Ronobir ABDI [facility] 07-02-2023 21:27-0500 Heart rate 141 /min Ronobir ABDI [facility] 07-02-2023 21:27-0500 Respiratory rate 18 /min Ronobir ABDI [facility] 07-01-2023 00:30-0500 Diastolic blood pressure 76 mm[Hg] Kaylinn Dokken [facility] 07-01-2023 00:30-0500 Heart rate 102 /min Kaylinn Dokken [facility] 07-01-2023 00:30-0500 Mean blood pressure 82 mm[Hg] Kaylinn Dokken [facility] 07-01-2023 00:30-0500 Respiratory rate 18 /min Kaylinn Dokken [facility] 07-01-2023 00:30-0500 SaO2% (BldA) [Mass fraction] 95 % Kaylinn Dokken [facility] 07-01-2023 00:30-0500 Systolic blood pressure 93 mm[Hg] Kaylinn Dokken [facility] 06-30-2023 23:24-0500 Diastolic blood pressure 73 mm[Hg] Kaylinn Dokken [facility] 06-30-2023 23:24-0500 Heart rate 102 /min Kaylinn Dokken [facility] 06-30-2023 23:24-0500 Mean blood pressure 92 mm[Hg] Kaylinn Dokken [facility] 06-30-2023 23:24-0500 Respiratory rate 16 /min Kaylinn Dokken [facility] 06-30-2023 23:24-0500 SaO2% (BldA) [Mass fraction] 94 % Kaylinn Dokken [facility] 06-30-2023 23:24-0500 Systolic blood pressure 130 mm[Hg] Kaylinn Dokken [facility] 06-30-2023 22:30-0500 Body temperature 97.88 [degF] Kaylinn Dokken [facility] 06-30-2023 22:30-0500 Diastolic blood pressure 112 mm[Hg] Kaylinn Dokken [facility] 06-30-2023 22:30-0500 Heart rate 114 /min Kaylinn Dokken [facility] 06-30-2023 22:30-0500 Mean blood pressure 120 mm[Hg] Kaylinn Dokken [facility] 06-30-2023 22:30-0500 Respiratory rate 18 /min Lisylinn Dokken [facility] 06-30-2023 22:30-0500 SaO2% (BldA) [Mass fraction] 100 % Lisylinn Dokken [facility] 06-30-2023 22:30-0500 Systolic blood pressure 137 mm[Hg] Lisylinn Dokken [facility] 06-30-2023 19:33-0500 Body temperature 97.7 [degF] Caitlyninn Dokken [facility] 06-30-2023 19:33-0500 Heart rate 123 /min Lisylinn Dokken [facility] 04-26-2023 15:19-0400 Blood Pressure Location Micheline BROOKS [facility] 04-26-2023 15:19-0400 Diastolic blood pressure 88 mm[Hg] Micheline BROOKS [facility] 04-26-2023 15:19-0400 Heart rate 80 /min Micheline BROOKS [facility] 04-26-2023 15:19-0400 Systolic blood pressure 139 mm[Hg] Micheline BROOKS [facility] 04-04-2023 16:30-0400 Diastolic blood pressure 51 mm[Hg] Jeff Tay [facility] 04-04-2023 16:30-0400 Heart rate 39 /min Jeff Tay [facility] 04-04-2023 16:30-0400 Respiratory rate 14 /min Jeff Tay [facility] 04-04-2023 16:30-0400 SaO2% (BldA) [Mass fraction] 99 % Jeff Tay [facility] 04-04-2023 16:30-0400 Systolic blood pressure 145 mm[Hg] Jeff Tay [facility] 04-04-2023 15:52-0400 Body temperature 98.06 [degF] Jeff Tay [facility] 04-04-2023 15:52-0400 Diastolic blood pressure 81 mm[Hg] Jeff Tay [facility] 04-04-2023 15:52-0400 Heart rate 66 /min Jeff Tay [facility] 04-04-2023 15:52-0400 Respiratory rate 14 /min Jeff Tay [facility] 04-04-2023 15:52-0400 SaO2% (BldA) [Mass fraction] 99 % Jeff Tay [facility] 04-04-2023 15:52-0400 Systolic blood pressure 161 mm[Hg] Jeff Tay [facility] 04-04-2023 14:52-0400 Diastolic blood pressure 79 mm[Hg] Jeff Tay [facility] 04-04-2023 14:52-0400 Heart rate 64 /min Jeff Tay [facility] 04-04-2023 14:52-0400 Respiratory rate 14 /min Jeff Cross [facility] 04-04-2023 14:52-0400 SaO2% (BldA) [Mass fraction] 100 % Jeff Cross [facility] 04-04-2023 14:52-0400 Systolic blood pressure 95 mm[Hg] Jeff Cross [facility] 04-04-2023 14:07-0400 Body temperature 98.06 [degF] Jeff Cross [facility] 04-04-2023 13:52-0400 Body temperature 98.24 [degF] Jeff Cross [facility] 04-04-2023 13:52-0400 Heart rate 107 /min Jeff Cross [facility] 01-28-2023 21:23-0400 Body temperature 97.7 [degF] [facility] 01-28-2023 21:23-0400 Diastolic blood pressure 78 mm[Hg] [facility] 01-28-2023 21:23-0400 Heart rate 82 /min [facility] 01-28-2023 21:23-0400 Respiratory rate 18 /min [facility] 01-28-2023 21:23-0400 SaO2% (BldA) [Mass fraction] 97 % [facility] 01-28-2023 21:23-0400 Systolic blood pressure 125 mm[Hg] [facility] 09-01-2022 14:01-0500 Diastolic blood pressure 75 mm[Hg] Julianstacia Esequiel [facility] 09-01-2022 14:01-0500 Mean blood pressure 91 mm[Hg] Mohstacia Esequiel [facility] 09-01-2022 14:01-0500 Systolic blood pressure 122 mm[Hg] Mohstacia Esequiel [facility] 09-01-2022 13:48-0500 Blood Pressure Location Mohstacia Esequiel [facility] 09-01-2022 13:48-0500 Diastolic blood pressure 79 mm[Hg] Mohstacia Esequiel [facility] 09-01-2022 13:48-0500 Heart rate 60 /min Yennifer Esequiel [facility] 09-01-2022 13:48-0500 SaO2% (BldA) [Mass fraction] 98 % Yennifer Esequiel [facility] 09-01-2022 13:48-0500 Systolic blood pressure 149 mm[Hg] Mohstacia Esequiel [facility] 06-13-2022 08:54-0400 Blood Pressure Location Yennifer Esequiel [facility] 06-13-2022 08:54-0400 Diastolic blood pressure 68 mm[Hg] Yennifer Esequiel [facility] 06-13-2022 08:54-0400 Heart rate 75 /min Yennifer Esequiel [facility] 06-13-2022 08:54-0400 SaO2% (BldA) [Mass fraction] 96 % Mohamed Esequiel [facility] 06-13-2022 08:54-0400 Systolic blood pressure 132 mm[Hg] Mohamed Esequiel [facility] 03-03-2022 09:59-0400 Blood Pressure Location CARMINA GARRISON [facility] 03-03-2022 09:59-0400 Diastolic blood pressure 89 mm[Hg] CARMINA GARRISON [facility] [place] 03-03-2022 09:59-0400 Heart rate 77 /min CARMINA GARRISON [facility] [place] 03-03-2022 09:59-0400 Systolic blood pressure 140 mm[Hg] CARMINA GARRISON [facility] 02-15-2022 13:17-0400 Body temperature 98.6 [degF] Jeff Cross [facility] 02-15-2022 13:17-0400 Diastolic blood pressure 62 mm[Hg] Jeff Wadee [facility] 02-15-2022 13:17-0400 Heart rate 86 /min Jeff Wadee [facility] 02-15-2022 13:17-0400 Respiratory rate 18 /min Jeff Wadee [facility] 02-15-2022 13:17-0400 SaO2% (BldA) [Mass fraction] 99 % Jeff Tay [facility] 02-15-2022 13:17-0400 Systolic blood pressure 151 mm[Hg] Jeff Tay [facility] 12-24-2021 17:39-0400 Body temperature 97.7 [degF] Jeff Tay [facility] 12-24-2021 17:39-0400 Diastolic blood pressure 70 mm[Hg] Jeff Tay [facility] 12-24-2021 17:39-0400 Heart rate 81 /min Jeff Cross [facility] 12-24-2021 17:39-0400 Respiratory rate 15 /min Jeff Cross [facility] 12-24-2021 17:39-0400 SaO2% (BldA) [Mass fraction] 100 % Jeff Cross [facility] 12-24-2021 17:39-0400 Systolic blood pressure 163 mm[Hg] Jeff Cross [facility] Encounters Encounter Date Encounter Type Care Provider Facility Start: 10-05-2023 End: 10-05-2023 Emergency department patient visit Koby Masterson Facility:[facility] Start: 10-05-2023 End: 10-05-2023 Emergency department patient visit Koby Carroll [facility] Start: 10-02-2023 Telephone encounter Alea lynn MD [...] Non-ischemic cardiomyopathy (HCC); Persistent atrial fibrillation (HCC); 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; History of cardioversion; Primary hypertension Feeling of incomplet e bladder emptying (Primary Dx); Stricture of female urethra, unspecified stricture type; Severe protein-calorie malnutrition (HCC) Start: 09-21-2023 End: 09-22-2023 [facility] Start: 09-21-2023 Telephone encounter Alea lynn MD [...] 09-17-2023 Emergency department patient visit Parveen Ayers Facility:[facility] Start: 09-17-2023 End: 09-17-2023 Emergency department patient visit Parveen BenitezElise Ayers [facility] Start: 09-13-2023 Refill Peggy Nazario MD Work Phone: [facility] Comment on above: Anxiety Start: 09-12-2023 End: 09-12-2023 ambulatory CRUZ COVINGTON Not Available Start: 09-12-2023 Refill Peggy Nazario MD Work Phone: [facility] Comment on above: Gastroesophageal ref lux disease without esophagitis Start: 09-12-2023 End: 09-12-2023 Emergency department patient visit Parveen Ayers Facility:[facility] Start: 09-12-2023 End: 09-12-2023 Emergency department patient visit Parveen Ayers [facility] Start: 09-06-2023 End: 09-06-2023 ambulatory PEGGY NAZARIO Not Available Start: 08-28-2023 End: 08-29-2023 ambulatory PEGGY NAZARIO Facility:[facility] Start: 08-24-2023 Evaluation and manag ement of inpatient LE PANIAGUA Facility:[facility] Start: 08-23-2023 End: 08-24-2023 ambulatory GIANNI VILLALBA Facility:[facility] Start: 08-11-2023 End: 08-11-2023 ambulatory PEGGY NAZARIO Not Available Start: 07-24-2023 End: 07-24-2023 ambulatory RODOLFO BOO Not Available Start: 07-24-2023 Telephone encounter Micheline goldberg MD Work Phone: Cardiothoracic Comment on above: Insurance Inquiry Start: 07-21-2023 End: 07-21-2023 ambulatory Johan HENRIQUEZ Facility:[facility] Start: 07-21-2023 End: 07-21-2023 Admission to same day surgery center Johan HENRIQUEZ [facility] Start: 07-20-2023 End: 07-20-2023 ambulatory PEGGY NAZARIO Not Available Start: 07-20-2023 End: 07-21-2023 ambulatory XXXX NONE Facility:[facility] Start: 07-20-2023 End: 07-20-2023 Patient encounter procedure Johan HENRIQUEZ [facility] Start: 07-19-2023 End: 07-20-2023 ambulatory Micheline BROOKS Facility:[facility] Start: 07-10-2023 End: 07-10-2023 ambulatory PEGGY NAZARIO Not Available Start: 07-07-2023 End: 07-07-2023 Emergency department patient visit Jeff Cross Facility:[facility] Start: 07-07-2023 End: 07-07-2023 Emergency department patient visit Jeff Cross [facility] Start: 07-04-2023 End: 07-06-2023 Pre-admission assessment Johan HENRIQUEZ [facility] Start: 07-02-2023 End: 07-06-2023 ambulatory Nahid SERRATO Facility:[facility] Start: 07-02-2023 End: 07-06-2023 Observation Noman PATTON [facility] Start: 06-30-2023 End: 07-01-2023 Emergency department patient visit Koby Masterson Facility:[facility] Start: 06-30-2023 End: 07-01-2023 [facility] Start: 05-23-2023 End: 05-24-2023 ambulatory Micheline BROOKS Facility:[facility] Start: 04-26-2023 End: 04-27-2023 ambulatory Micheline BROOKS Facility:[facility] Start: 04-26-2023 End: 04-26-2023 Patient encounter procedure Micheline BROOKS [facility] Start: 04-04-2023 End: 04-04-2023 Emergency department patient visit Jeff Cross Facility:[facility] Start: 04-04-2023 End: 04-04-2023 Emergency department patient visit Jeff Cross [facility] Start: 01-28-2023 End: 01-29-2023 Emergency department patient visit José Luispamela Cazares Yvette Facility:[facility] Start: 01-28-2023 End: 01-28-2023 Emergency department patient visit Layton Crawford [facility] Start: 12-05-2022 End: 12-06-2022 ambulatory Peggy Nazario Facility:[facility] Start: 12-05-2022 End: 12-05-2022 Patient encounter procedure Peggy Deyanira Aravind [facility] Start: 10-25-2022 End: 10-26-2022 ambulatory Micheline BROOKS Facility:[facility] Start: 10-25-2022 End: 10-25-2022 Patient encounter procedure Micheline BROOKS [facility] Start: 10-03-2022 End: 10-03-2022 Patient encounter procedure Asuncion Reyna [facility] [place] Start: 09-01-2022 End: 09-01-2022 Patient encounter procedure Yennifer Iraheta [facility] Start: 07-12-2022 End: 07-12-2022 [facility] Start: 06-13-2022 End: 06-13-2022 [facility] Jb Iraheta [facility] Start: 03-03-2022 End: 03-03-2022 Patient encounter procedure CARMINA GARRISON [facility] [place] Start: 02-15-2022 End: 02-15-2022 Emergency department patient visit Jeff Cross [facility] Start: 12-24-2021 End: 12-24-2021 Emergency department patient visit Jeff Cross [facility] Start: 08-11-2021 End: 11-10-2021 Patient encounter procedure Peggy Nazario [facility] Procedures Date Procedure Procedure Detail Performing Clinician [...] P,Tdap,Td Vaccine (5 - Td or Tdap) [facility] Start: 09-26-2026 Diabetes Screening Diabetes Screenin g [facility] Start: 08-31-2026 Diabetes Screening Diabetes Screenin g [facility] Start: 09-26-2024 BP Controlled (<130/80) BP Controlle d (<130/80) [facility] Start: 08-28-2024 BP Controlled (<130/80) BP Controlle d (<130/80) [facility] Start: 07-29-2024 End: 07-29-2024 Patient encounter procedure 07/29/2024 3:45 PM EST Office Visit [facility] [address] [place] [address] Rdoolfo Boo, DO [address] [place] [address] [facility] Start: 07-24-2024 Medicare Annual Well ness (AWV) Medicare Annual Wellness (AWV) [facility] Start: 01-24-2024 ambulatory Facility:[facility] Start: 11-10-2023 End: 11-10-2023 Patient encounter procedure 11/10/2023 1:00 PM EDT Office Visit [facility] [address] [place] [id number] Peggy Nazario MD [address] [place] [address] [facility] Start: 11-08-2023 End: 02-07-2024 Basic metabolic 2000 panel - Serum or Plasma BASIC METABOLIC PNL Lab Routine Non-rheumatic mitral regurgitation Persistent atrial fibrillation (HCC) Non-ischemic cardiomyopathy (HCC) Chronic HFrEF (heart failure with reduced ejection fraction) (HCC) Expected: 11/08/2023 (Approximate), Expires: 02/07/2024 [facility] Work Phone: Comment on above: Expected: 11/08/2023 (Approximate), Expires: 02/07/2024 Start: 11-08-2023 End: 09-26-2024 ECG COMPLETE ECG COMPLETE ECG Routine Non-rheumatic mitral regurgitation Persistent atrial fibrillation (HCC) Non-ischemic cardiomyopathy (HCC) Chronic HFrEF (heart failure with reduced ejection fraction) (HCC) Expected: 11/08/2023 (Approximate), Expires: 09/26/2024 [facility] Work Phone: Comment on above: Expected: 11/08/2023 (Approximate), Expires: 09/26/2024 Start: 10-25-2023 End: 01-24-2024 Basic metabolic 2000 panel - Serum or Plasma BASIC METABOLIC PNL Lab Routine Non-rheumatic mitral regurgitation Persistent atrial fibrillation (HCC) Non-ischemic cardiomyopathy (HCC) Chronic HFrEF (heart failure with reduced ejection fraction) (HCC) Expected: 10/25/2023, Expires: 01/24/2024 [facility] Work Phone: Comment on above: Expected: 10/25/2023 , Expires: 01/24/2024 Start: 10-25-2023 End: 09-26-2024 ECG COMPLETE ECG COMPLETE ECG Routine Non-rheumatic mitral regurgitation Persistent atrial fibrillation (HCC) Non-ischemic cardiomyopathy (HCC) Chronic HFrEF (heart failure with reduced ejection fraction) (HCC) Expected: 10/25/2023, Expires: 09/26/2024 [facility] Work Phone: Comment on above: Expected: 10/25/2023 , Expires: 09/26/2024 Start: 10-10-2023 End: 01-09-2024 Basic metabolic 2000 panel - Serum or Plasma BASIC METABOLIC PNL Lab Routine Non-rheumatic mitral regurgitation Persistent atrial fibrillation (HCC) Non-ischemic cardiomyopathy (HCC) Chronic HFrEF (heart failure with reduced ejection fraction) (HCC) Expected: 10/10/2023 (Approximate), Expires: 01/09/2024 [facility] Work Phone: Comment on above: Expected: 10/10/2023 (Approximate), Expires: 01/09/2024 Start: 10-10-2023 End: 09-26-2024 ECG COMPLETE ECG COMPLETE ECG Routine Non-rheumatic mitral regurgitation Persistent atrial fibrillation (HCC) Non-ischemic cardiomyopathy (HCC) Chronic HFrEF (heart failure with reduced ejection fraction) (HCC) Expected: 10/10/2023 (Approximate), Expires: 09/26/2024 [facility] Work Phone: Comment on above: Expected: 10/10/2023 (Approximate), Expires: 09/26/2024 Start: 10-06-2023 End: 10-06-2023 Patient encounter procedure 10/06/2023 1:00 PM EST [facility] [address] [place] [address] Peggy Nazario MD [address] [place] [address] [facility] Start: 09-26-2023 End: 12-26-2023 Basic metabolic 2000 panel - Serum or Plasma BASIC METABOLIC PNL Lab Routine Non-rheumatic mitral regurgitation Persistent atrial fibrillation (HCC) Non-ischemic cardiomyopathy (HCC) Chronic HFrEF (heart failure with reduced ejection fraction) (HCC) Expected: 09/26/2023, Expires: 12/26/2023 [facility] Work Phone: Comment on above: Expected: 09/26/2023 , Expires: 12/26/2023 Start: 08-14-2023 Advance Directive Discussion Advance Directive Discussion [facility] Start: 08-14-2023 [facility] Start: 04-14-2023 Influenza vaccination Influenza Vacc ine (#1) [facility] Start: 08-14-2022 Advance Directive Discussion Advance Directive Discussion [facility] Start: 08-14-2022 Depression Assessment Depression Ass essment [facility] Start: 02-15-2019 Colonoscopy Colonoscopy [facility] Start: 02-15-2019 Colorectal Cancer Screening Colorectal Cancer Screening [facility] Start: 02-15-2019 Screening for malign ant neoplasm of colon [facility] Start: 2013 Bone Density Screening Bone Density Screening [facility] Start: 2013 Pneumococcal Vaccine : 65+ (1 - PCV) Pneumococcal Vaccine: 65+ (1 - PCV) [facility] Start: 2013 Pneumococcal Vaccine : 65+ (1 of 1 - PCV) Pneumococcal Vaccine: 65+ (1 of 1 - PCV) [facility] Start: 2013 Screening for osteoporosis Bone Dens ity Screening [facility] Start: 2008 RSV Vaccine (1 - 1-d ose 60+ series) RSV Vaccine (1 - 1-dose 60+ series) [facility] Start: 1998 Shingrix Vaccine (1 of 2) Abdi grix Vaccine (1 of 2) [facility] Start: 1993 Cologuard (FIT-DNA) Cologuard (FIT-D NA) [facility] Start: [address] Colonography [facility] Start: 1993 Diabetes Screening Diabetes Screenin g [facility] Start: 1993 Fecal Occult Blood Fecal Occult Bloo d [facility] Start: 1993 Lipid 1996 panel - S theresa or Plasma Lipid Screening [facility] Start: 1993 Lipid panel Lipid Screening [facility] Start: 1993 Screening for malign ant neoplasm of colon [facility] Start: 1993 Sigmoidoscopy Sigmoidoscopy [facility] Start: 1966 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 Start: 1948 Covid-19 Vaccine (#1) Covid-19 Vacci ne (#1) [facility] Start: 1948 Screening for malign ant neoplasm of colon [facility] Cystourethroscopy CYSTO.PANENDO Procedures Routine Feeling of incomplete bladder emptying Stricture of female urethra, unspecified stricture type Ordered: 09/26/2023 [facility] Work Phone: Comment on above: Ordered: 09[facility]26/[facility]23 [facility] Immunizations Immunization Date Immunization Notes Care Provider Olivia valdez 01-29-2018 tetanus toxoid, reduced diphtheria toxoid, and acellular pertussis vaccine, adsorbed Peggy Nazario MD Work Phone: [facility] 02-16-2016 tetanus and diphtheria toxoids, adsorbed, preservative free, for adult use (5 Lf of tetanus toxoid and 2 Lf of diphtheria toxoid) Peggy Nazario MD Work Phone: [facility] 12-14-2009 diphtheria, tetanus toxoids and pertussis vaccine Peggy Nazario MD Work Phone: [facility] 12-30-2004 diphtheria and tetanus toxoids, adsorbed for pediatric use Peggy Nazario MD Work Phone: [facility] NEGATED: Highlighted row has not occurred!07-20-2023 influenza virus vaccine, unspecified formulation Johan MARTINEZ [facility] Payers Date Payer Category Payer Unknown [id number] 2016 Unknown [id number] 2013 Medicare [id number] 2013 Medicare [id number] 1948 Unknown [id number] 2.16.84 0.1.089991.3.579.2.1258 1948 Unknown [id number] 2.16.84 0.1.353735.3.579.2.1258 1948 Unknown [id number] 2.16.84 0.1.028831.3.579.2.1258 1948 Unknown [id number] 2.16.840 .1.166774.3.579.2.1258 1948 Unknown [id number] 2.16.840 .1.189973.3.579.2.1258 1948 Unknown [id number] 2.16.840 .1.726153.3.579.2.1258 1948 Unknown [id number] 2.16.840 .1.424310.3.579.2.1258 1948 Unknown [id number] 2.16.8 40.1.829649.3.579.2.727 1948 Unknown [id number] 2.16.8 40.1.874035.3.579.2.72 1948 Unknown [id number] 2.16.8 40.1.183701.3.579.2.72 1948 Unknown [id number] 2.16.8 40.1.869145.3.579.2.72 1948 Unknown [id number] 2.16.8 40.1.420171.3.579.2.72 1948 Unknown [id number] 2.16.8 40.1.251276.3.579.2. 1948 Unknown [id number] 2.16.8 40.1.895552.3.579.2.72 1948 Unknown [id number] 2.16.8 40.1.921727.3.579.2. 1948 Unknown [id number] 2.16.8 40.1.569609.3.579.2. 1948 Unknown [id number] 2.16.8 40.1.037506.3.579.2.72 1948 Unknown [id number] 2.16.8 40.1.476858.3.579.2.72 1948 Unknown [id number] 2.16.8 40.1.253209.3.579.2.72 1948 Unknown [id number] 2.16.8 40.1.759444.3.579.2.72 1948 Unknown [id number] 2.16.8 40.1.611481.3.579.2.72 1948 Unknown [id number] 2.16.8 40.1.710836.3.579.2.72 1948 Unknown [id number] 2.16.8 40.1.654465.3.579.2.727 Social History Date Type Detail Facility Start: 02-23-2021 End: 07-20-2023 Tobacco smoking status Ex-smoker (finding) [facility] Comment on above: Denies Start: 07-08-2020 End: 07-20-2020 Sex Assigned At Female [facility] Tobacco smoking status Never [facility] Comment on above: Denies History of tobacco use Current smoker [facility] Start: 10-24-2017 End: 08-23-2023 Tobacco use and exposure Smokeless tobacco non-user [facility] Start: 10-24-2017 Alcohol intake Current drinke r of alcohol (finding) [facility] Start: 07-08-2020 End: 07-20-2020 History of Social function [facility] Start: 09-26-2012 End: 08-23-2023 Tobacco Comment Quit 1996. social smoker mostly [facility] Start: 1948 Sex Assigned At Not [...] Assessment Result Facility 10-05-2023 Functional Status N/A [facility] 09-17-2023 Functional Status N/A [facility] 09-12-2023 Functional Status N/A [facility] 07-21-2023 Functional Status No [facility] 07-20-2023 Functional Status No [facility] 07-07-2023 Functional Status N/A [facility] 07-03-2023 Functional Status N/A [facility] 07-02-2023 Functional Status [facility] 06-30-2023 Functional Status N/A [facility] 04-26-2023 Functional Status N/A [facility] [place] 04-04-2023 Functional Status N/A [facility] 01-28-2023 Functional Status N/A [facility] 10-19-2022 Functional Status N/A [facility] 10-03-2022 Functional Status N/A [facility] [place] 09-01-2022 Functional Status No [facility] 06-13-2022 Functional Status No [facility] 03-03-2022 Functional Status N/A [facility] [place] 02-15-2022 Functional Status N/A [facility] Clinical Notes 12-24-2021 to 10-05-2023 Note Date & Type Note Facility 10-05-2023 Hospital Discharg e instructions Patient Education 10/05/2023 21:56:35 Constipation, Adult, Frgd-lv-Vsgz Constipation, Adult Constipation is when a person [...] high in fat and sugar, such as: ?Italian fries. ?Hamburgers. ?Cookies. ?Candy. ?Soda. Drink enough fluid to keep your pee (urine) pale yellow. General instructions Exercise regularly or as told by your doctor. Try to do 150 minutes of exercise each week. Go to the restroom when you feel like you need to poop. Do not hold it in. Take ggte-peu-tzkfkus and prescription medicines only as told by [...] keep your pee (urine) pale yellow. Take novj-nxi-fvprgab and prescription medicines only as told by your doctor. These include any fiber supplements. This information is not intended to replace advice given to you by your health care provider. Make sure you discuss any questions you have with your health care provider. Document Revised: 06/17/2020 Document Reviewed: 06/17/2020 [employer] Patient Education 2022 smartclip. 10/05/2023 21:56:35 Gastroesophageal Reflux Disease, Adult, Qdtd-lb-Vogf Gastroesophageal Reflux Disease, Adult Gastroesophageal reflux (ZUNILDA) [...] powder, vinegar, hot sauces, and BBQ sauce. ?[place] fruit juices and citrus fruits, such as oranges, ronald, and limes. ?Tomato-based foods. These include red sauce, chili, salsa, and pizza with red sauce. ?Fried and fatty foods. These include donuts, turkmen fries, potato chips, and high-fat dressings. ?High-fat [...] to any changes in your symptoms. Take lnss-hqz-ytbqbkw and prescription medicines only as told by [...] provider. Document Revised: 02/08/2021 Document Reviewed: 02/08/2021 [employer] Patient Education 2022 smartclip. 10/05/2023 21:56:35 Abdominal Pain, Adult, Unwg-sx-Lupg Abdominal Pain, Adult Many things can cause belly (abdominal) pain. Most times, belly pain is not dangerous. Many cases of belly pain can be watched and treated at home. Sometimes, though, belly pain is serious. Your doctor will try to find the cause of your belly pain. Follow these instructions at home: Medicines Take mkmi-mqt-nqlwfnm and prescription medicines only as told by [...] your belly pain for any changes. Take vvep-rjz-xipehkh and prescription medicines only as told by [...] provider. Document Revised: 12/09/2019 Document Reviewed: 12/09/2019 [employer] Patient Education 2022 smartclip. Follow Up Care 10/05/2023 17:56:41 With:Johan HENRIQUEZ Address: [address] [place] [phone] Business (1) When:10/08/2023 20:57:11 With:Peggy Nazario Address: [address] [place] [address]- Business (1) When:Within 3 Day(s) [facility] 10-05-2023 Evaluation + Plan note Extrac deepak [...] day(s), # 28 tab(s), Refills(s) 0, Pharmacy: [facility], 165, cm, 10/05/23 18:07:00 EST, Height/Length Dosing, 50.3, kg, 10/05/23 18:07:00 EST, Weight Dosing lidocaine topical, 200 mg, 10 mL, Soln-Oral, Oral, Once, Stop date 10/05/23 20:48:00 EST, STAT, Start date 10/05/23 20:48:00 EST ECG 12 Lead Adult Future Appointments Appointment Date:01/24/2024 02:30:00 PM Scheduled Provider:Micheline BROOKS MD Location:[facility] Appointment Type:URO Office Visit Future Scheduled Tests Laboratory* Basic Metabolic Panel 07/12/23 * Digoxin Level 07/12/23 [facility] [facility]02-19-2024 Miscellaneous Notes* Telephone Encounter - Junito Mendes - 10/02/2023 9:35 AM EST October 02, 2023 Patient Contact Number: [phone] Patient last seen within the last year: Yes Date of last office visit: 09/26/2023 Reason For Call: Test Results; pt requesting to go over 09/26 labs Physician: Alea Harley MD Patient was informed that non-urgent calls may be returned within the next three business days. Yes Junito Mendes documented in this encounterTrihealth Mccull[facility]02-13-2024 NoteHNO ID: [id number] Author: RAPHAEL GOLDSMITH MD Service: ? Author Type: Physician Type: Progress Notes Filed: 09/26/2023 16:38 Note Text: [facility]VIC [...] Female Pelvic Medicine and Reconstructive Surgery Electronically signedJ.W. Ruby [facility]02-13-2024 Nurse Note* Chrissy Roberts OCCA - 09/26/2023 2:28 PM EST Post Void Residual done on patient with 45 cc residual volume remaining. notified. CARISSA Ferrell documented in this encounterTrihealth Mccull[facility]02-13-2024 History of Present illness Narrative* Raphael Goldsmith MD - 09/26/2023 2:15 PM EST [facility] FOR FEMALE PELVIC [...] Medicine and Reconstructive Surgery documented in this encounterTrihealth Mccullough-Hy[facility]02-13-2024 NotePatient Outreach (UROLMN) ASYA ASENCIO I ([id number]) 1950 F Date Time Provider Department 09/26/23 [...] for genitourinary condition [Z13.89] Order(s):URINALYSIS, REFLEX MICROSCOPIC [[id number]] Order #: [id number]. #:[id number] Prescriptions as of 09/29/2023 - pantoprazole DR [...] malnutrition (HCC) [E43] 08/30/2023 Encounter Status:Closed by Farmeron, PRODUSER on 09/29/23[facility] 09-26-2023 NoteHNO ID: [id number] Author: ANA RIVAS APRN.TALIB Service: ? Author Type: Nurse Practitioner Type: Progress Notes Filed: 09/26/2023 10:41 Note Text: [facility] [place] [facility] Department of Cardiovascular Medicine SECTION OF CLINICAL CARDIOLOGY OUTPATIENT VISIT DATE September 26, 2023 OUTPATIENT VISIT TYPE ESTABLISHED PRIMARY CARE PHYSICIAN: Peggy Nazario MD [address] [place] [address] REFERRING PHYSICIAN: Dr. Alea Harley [address] [facility] [address] CHIEF COMPLAINT: Established Patient HISTORY OF PRESENT [...] (0.125 mg) tabl (more content not included)... [facility]02-13-[facility]24 Instructions* Patient Instructions* Ana Rivas APRN.CNP [...] with labs and EKG documented in this encounterTrihealth Mccull[facility]02-13-2024 History of Present illness Narrative* Ana Rivas APRN.CNP - 09/26/2023 8:51 AM EST Images from the original note were not included. [facility] [place] [facility] Department of Cardiovascular Medicine SECTION OF CLINICAL CARDIOLOGY OUTPATIENT VISIT DATE September 26, 2023 OUTPATIENT VISIT TYPE ESTABLISHED PRIMARY CARE PHYSICIAN: Peggy Nazario MD [address] [place] [address] REFERRING PHYSICIAN: Dr. Alea Harley [address] [facility] [address] CHIEF COMPLAINT: Established Patient HISTORY OF PRESENT [...] ECG Confirmed by fellow NANCY MCMAHON, ZIGGY ([id number]) on 09/04/2023 1:50:09 PM Confirmed by MD DEJUAN, PhD, KHUSHI ([id number]) on 09/11/2023 1:23:[address] Result Conclusion CTA CHEST (GATED) W IVCON Exam End: 08/23/2023 7:47 AM (Final result) Impression: IMPRESSION: Dilated left ventricle, biatrial enlargement. Mitral valve is noncalcified. Normal caliber thoracic aorta. Form Tamper: [facility] Transcribe Date/Time: Aug 23 2023 11:20A Dictated [...] Electrocardiogram, Laboratory Testing, and Echocardiogram. IMPRESSION: Ms. Asenico is a 73 year old female who [...] a plan of care. documented in this encounterTrihealth Mccullough-[facility] Hospital02-08-2024 Miscellaneous Notes* Telephone Encounter - Carmina Reyna RN - 09/21/2023 4:[address] Harley would like patient to come in and be seen to go over this in greater detail. Work on setting her up with an FACILITY SALES AND ADMIN and Dr. Harley would like to be in for the appointment. Next Monday. Carmina Reyna RN * Telephone Encounter - Junito Mendes 09/21/2023 3:33 PM EST September 21, 2023 Patient Contact Number: [phone] Patient last seen within the last year: [...] days. Yes Junito Mendes documented in this encounterTrihealth Mccull[facility]02-05-2024 History of Present illness Narrative* Farrukh [...] Flowsheet Row Patient Outreach from 09/18/2023 in [facility] with Loida Nathan LPN Discharge Information ED or Hospital Discharge? ED Patient has been contacted within 1 week of being seen in the ED Yes Discharge Date 09/17/23 Discharge Hospital [facility] [DX: ACid reflux, Medication reaction] Discharged [...] for ER follow up. Pt seen at [facility] ER on 09/17/23 due to dizziness and shaking. Hospitalrecords were reviewed. Pt had an elevated BP. She believes the dizziness and shaking was caused by the valsartan. She had the same issues when she was on it before, was advised to cut it in half. Shestates she has been feeling better since she stopped it. Pt would like a referral to a new extension course coordinator/surgeon. She states she has been told that [...] be referred to a cardiothoracic surgeon at [facility]. Discussed some risks of surgery. - Ambulatory referral to Cardiothoracic Surgery; Future Entered by _El_, acting as scribe for _Aravind_. Signature _Heath MCMAHON_ Date _09/18/2023_. The documentation recorded by the scribe accurately reflects the service(s) I personally performed and the decisions I made. documented in this encounterAlvin J. Siteman Cancer [id number] Evaluation + Plan note Extracted from: Title:ED [...] Date:01/24/2024 02:30:00 PM Scheduled Provider:Micheline BROOKS MD Location:[facility] Appointment Type:URO Office Visit Future Scheduled Tests Laboratory* Basic Metabolic Panel 07/12/23 * Digoxin Level 07/12/23 [facility]02-04-2024 Hospital Discharge instructions Patient Education 09/17/2023 06:16:25 [...] medicines that you are allergic to. Take ykcd-kox-pcpskbe and prescription medicines only as told by your health care provider. If you were given medicines to treat your allergic reaction, do not drive until your health care provider tells you it is safe. If you have hives or a rash: ?Use an elki-xji-pryhtjh antihistamine as told by your health care [...] provider. Document Revised: 01/10/2022 Document Reviewed: 01/10/2022 [employer] Patient Education 2022 [employer]. 09/17/2023 06:16:25 Heartburn Heartburn Heartburn is a [...] powder, vinegar, hot sauces, and barbecue sauce. ?[place] fruit juices and citrus fruits, such as oranges, ronald, and limes. ?Tomato-based foods, such as red sauce, chili, salsa, and pizza with red sauce. ?Fried and fatty foods, such as donuts, turkmen fries, potato chips, and high-fat dressings. ?High-fat [...] ask your health care provider. Medicines Take neyw-pdj-uzsdpke and prescription medicines only as told by [...] told by your health care provider. Take ogym-iry-kddaeai and prescription medicines only as told by [...] provider. Document Revised: 02/03/2021 Document Reviewed: 02/03/2021 [employer] Patient Education 2022 [employer]clip. Follow Up Care 09/17/2023 04:56:21 With:Peggy Nazario Address: [address] [place] [address]- Business (1) When:Within 3 Day(s) [facility]02-04-2024 Miscellaneous Notes* Telephone Encounter - Carmina Mcmahan APRN.CNP - 09/17/2023 6:25 AM EST Patient reported that she went to the ED, said her blood pressure was up instead of down this time . I didn't sleep, I can't take that medicine, there's something that don't agree with me. She reiterates that she can't take that medication (valsartan) again. Carmina Mcmahan APRN.CNP [facility] Operations Manager Station 09/17/2023 6:29 AM documented in this encounterTrihealth Mccullough-[facility]02-04-2024 Miscellaneous Notes* Telephone Encounter - Carmina Mcmahan APRN.CNP - 09/17/2023 4:21 AM EST [facility] Contact Center Inbound Phone Encounter DATE of SERVICE: 09/17/2023 TIME of SERVICE: 4:21 AM Status: Urgent Service/Provider: Clinical Cardiology Alea Harley MD Reason for call: Medication Issue/Question Contact information: [phone] Resolution: Reinforced education and Sent to [facility] Comments: Patient calling after waking up with [...] to try. Carmina Mcmahan APRN.TALIB [facility] Operations Manager Station Date of Resolution: 09/17/2023 Time of Resolution 4:21 AM documented in this encounterTrihealth Mccullough-[facility] Hospital02-02-2024 Telephone encounter Note * Telephone Encounter - Rupal Lemus - 09/15/2023 1:24 PM EST Pt calls to check status of this, wants this done as quickly as possible, states that she will haveto cut pills in half to make it through the weekend and missed one last night. [facility] [id number] Miscellaneous Notes* Telephone Encounter - Rupal Lemus [...] out completely on monday documented in this encounterAlvin J. Siteman Cancer [id number] Telephone encounter Note* Telephone Encounter - [facility] - 09/15/2023 9:49 AM EST Pt calls to [facility] will be [facility] on Monday [facility] Cancer CenterWzbjmfrsuh15-49-2909 Telephone encounter Note* Telephone Encounter - [facility] - 09/13/2023 11:25 AM EST Pt said she would like it [facility]Wyxq[facility] Telephone encounter Note* Telephone Encounter - Farrukh Mcmahan MA - 09/13/2023 11:06 AM EST Rx signed yesterday [facility] Cancer CenterCdxvvdmrqj05-50-3277 Telephone encounter Note* Telephone Encounter - Candis Amaro - 09/13/2023 11:01 AM EST Pt calls for refill of lorazepam is almost out will be out completely on monday [place] [id number] Evaluation + Plan noteExtracted from: Title:ED Note [...] Date:01/24/2024 02:30:00 PM Scheduled Provider:Micheline BROOKS MD Location:[facility] Appointment Type:URO Office Visit Future Scheduled Tests Laboratory* Basic Metabolic Panel 07/12/23 * Digoxin Level 07/12/23 [facility]01-30-2024 Hospital Discharge instructions Patient Education 09/12/2023 06:47:40 [...] as meditation or yoga. General instructions Take cmam-kwi-yodfxxh and prescription medicines only as told by [...] provider. Document Revised: 05/20/2022 Document Reviewed: 05/20/2022 [employer] Patient Education 2022 [employer]. 09/12/2023 06:47:40 Gastroesophageal Reflux Disease, Adult [...] powder, vinegar, hot sauces, and barbecue sauce. ?[place] fruit juices and citrus fruits, such as oranges, ronald, and limes. ?Tomato-based foods, such as red sauce, chili, salsa, and pizza with red sauce. ?Fried and fatty foods, such as donuts, turkmen fries, potato chips, and high-fat dressings. ?High-fat [...] to any changes in your symptoms. Take jnkl-xhs-nsmidgg and prescription medicines only as told by [...] you have new or worsening symptoms. Take goqj-qfy-baiacbw and prescription medicines only as told by [...] provider. Document Revised: 02/08/2021 Document Reviewed: 02/08/2021 [employer] Patient Education 2022 [employer] Follow Up Care 09/12/2023 04:04:55 With:Peggy Nazario Address: [address] [place] [address]- Business (1) When:Within 3 Day(s) [facility]01-18-2024 NoteHNO ID: [id number] Author: FELISA RIBERA RPh Service: Pharmacy Author [...] prohibitive at this time due to deductible Felias Ribera RPh August 31, 2023 2:01 PM Pager: [phone] Medication List START taking these medications polyethylene [...] Your Medications These medications were sent to [facility] [address] [place] [address] Hours: Monday-Monday 7am-8pm, Monday, Monday and Holidays 9am-5pm apixaban 5 mg tab(s) atorvastatin 40 mg tablet carvedilol 12.5 mg tablet digoxin 125 mcg (0.125 mg) tablet polyethylene glycol 3350 17 gram/dose powder spironolactone 25 mg tablet valsartan 80 mg tabletJ.W. Ruby [facility] Hospital01-18-2024 NoteHNO ID: [id number] Author: MILAGRO RINALDI, Delia Service: Pharmacy Author Type: Proctologist Type: Plan of Care Filed: 08/31/2023 15:48 Note Text: PHARMACY BEDSIDE DELIVERY SERVICE Patient Name: Asya Asencio The marked outpatient medications were Filled at: [facility] and delivered to the patient's bedside [...] known as: ZOFRAN OMART Milagro Rinaldi PAGER: [phone] August 31, 2023 1:42 [facility]01-18-2024 NoteHNO ID: [id number] Author: MILAGRO RINALDI ? Service: Pharmacy Author Type: Proctologist Type: Plan of Care Filed: 08/31/2023 11:37 [...] 1 Any questions, [place] [phone]. Thank you (Prices may vary at different pharmacy locations, this is the cost at [facility]01-17-2024 NoteHNO ID: [id number] Author: VIRY MIDDLETON MD Service: Cardiovascular Medicine [...] Drain Duration Indwelling Urinary Catheter 08/28/23 191 [facility] Robles 14 Fr 1 day Intake [...] 0521 08/27/23 0839 0 (more content not included)...[facility]01-16-2024 Note HNO ID: [id number] Author: KHUSHBOO SANCHEZ, RT(R) Service: Radiology Author [...] BY: RT Maisha(R) August 29, 2023 2:45 [facility]01-16-2024 NoteHNO ID: [id number] Author: STEPHANIE PALACIOS MD Service: Urology Author [...] questions. Stephanie Palacios MD Resident PGY-2 Urology [facility] [place] [facility] Pager [phone] After hours and on weekend donor specialist pager [phone].W. Ruby Memorial Hospital01-16-2024 NoteHNO ID: [id number] Author: VIRY MIDDLETON MD Service: Cardiovascular Medicine Author Type: Physician Type: Progress Notes Filed: 08/29/2023 10:42 Note Text: [facility] CARDIOVASCULAR MEDICINE PROGRESS NOTE NAME: Asya Asencio SERVICE DATE: 08/29/2023 Interval History and Plan for the Day: No acute events overnight. Robles catheter (14 turkmen) was inserted yesterday because BS showed 305 [...] with ciprofloxacin > Urology: - robles 14 turkmen - pyridium 200 mg TID for 6 [...] Drain Duration Indwelling Urinary Catheter 08/28/23 1910 [facility] Robles 14 Fr <1 day Intake / Output Intake/Output Summary (Last 24 hours) at 08/29/2023 0803 Last data filed at 08/29/2023 0607 Gross per 24 hour Intake 50 ml Output 925 ml Net -875 ml Work Up Imaging: US KIDNEY/BLADDER Final Result IMPRESSION: NO HYDRONEPHROSIS. Form Tamper: PSCRy Transcribe Date/Time: Aug 25 2023 10:35A [...] PBNP 3,265* IMAGING: T (more content not included)...[facility]01-15-2024 NoteHNO ID: [id number] Author: YADIEL MOTLEY MD Service: Cardiovascular Medicine [...] anticoagulation for at least four weeks following religion of sinus rhythm. 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 Medications CHANGED on HOME PERFORMANCE LABORER medication list Carvedilol 3.125mg tablets Added to directions: take twice daily with meals. Medications REMOVED from HOME PERFORMANCE LABORER medication list Ativan 0.5mg and lorazepam 0.5mg [...] medication history: Yes Medication history completed by: Solar Sales Consultant: Arminda Coleman Source of history: Patient: Reliability of source: Appears reliable, clearly identified: Medication name, Medication frequency, and Indications, Pharmacy records: [facility], and [facility] Medication nonadherence identified: Unable to assess Reconciliation completed: Yes Completed by: Felisa Ribera [facility] All HOME PERFORMANCE LABORER medications addressed by LIP Patient interested in Bedside Delivery Services or using CC OP Pharmacy at discharge? Yes. Discharge Pharmacy Updated Preferred outpatient pharmacy: [id number] [place] [address] - [address] [facility] [phone] [address] [facility] ( [address] [place] [address] - [address] - [phone] [id number] [facility]pharmacy [facility][id number] [place] [address] - [address] - [phone] Pharmacy Discharge pharmacy: [facility] Patient not interested in [facility]'s home delivery service at this time. Allergies: [...] 8 HOURS Facility-Administered Medications: None Arminda Coleman [address] [place], [place] [address]01-15-2024 NoteHNO ID: [id number] Author: FELISA RIBERA RPh Service: Pharmacy Author Type: Pharmacist Type: Plan of Care Filed: 08/28/2023 13:27 Note Text: [facility] Home Delivery Program Patient Name: Asya Asencio Admission Date: 08/24/2023 Date of Contact: August 28, 2023 Would patient like to be enrolled into [facility] Home Delivery program: No Arminda Coleman August 28, 2023 1:07 [facility]01-15-2024 NoteHNO ID: [id number] Author: DUKE MORELOS RN Service: Care Management [...] 28, 2023 TIME: 10:53 AM PAGER/CONTACT #: [phone]01-15-2024 NoteHNO ID: [id number] Author: ARMINDA COELMAN, Delia Service: Pharmacy Author Type: Proctologist Type: Plan of Care Filed: 08/28/2023 09:37 [...] 3 Any questions, [place] [phone]. Thank you (Prices may vary at different pharmacy locations, this is the cost at [facility]01-15-2024 NoteHNO ID: [id number] Author: VIRY MIDDLETON MD Service: Cardiovascular Medicine [...] US KIDNEY/BLADDER Final Result IMPRESSION: NO HYDRONEPHROSIS. Form Tamper: PSCB Transcribe Date/Time: Aug 25 2023 10:35A [...] presents for pre-operative optimization (more content not included)...[facility]01-14-2024 NoteHNO ID: [id number] Author: ARMINDA COLEMAN, ? Service: Pharmacy Author Type: Proctologist Type: Plan of Care Filed: 08/27/2023 12:07 Note Text: Insurance investigation completed Patient has active prescription insurance: Yes - Patient's insurance is in-network with [facility] Insurance loaded into [employer]: Yes Test claim was completed to verify insurance is active: Successful Any questions, please contact your medication destination imagination coordinator. Pager #: [phone].W. Ruby Memorial Hospital01-14-2024 NoteHNO ID: [id number] Author: AMINA PETERSEN MD Service: Cardiovascular Medicine [...] US KIDNEY/BLADDER Final Result IMPRESSION: NO HYDRONEPHROSIS. Form Tamper: LILIANA Transcribe Date/Time: Aug 25 2023 10:35A [...] in the setting of (more content not included)...[facility]01-13-2024 NoteHNO ID: [id number] Author: AMINA PETERSEN MD Service: Cardiovascular Medicine [...] US KIDNEY/BLADDER Final Result IMPRESSION: NO HYDRONEPHROSIS. Form Tamper: LILIANA Transcribe Date/Time: Aug 25 2023 10:35A [...] function: - Stop l (more content not included)...[facility]01-13-2024 History of Past illness Narrative* Problem Noted Date Diagnosed Date Resolved Date Acute on chronic systolic co ngestive heart failure 08/26/2023 08/27/2023 documented as of this encounter (statuses as of 09/17/2023) [facility]01-13-2024 History of Past illness Narrative* Problem Noted Date Diagnosed Date Resolved Date Acute on chronic systolic co ngestive heart failure 08/26/2023 08/27/2023 documented as of this encounter (statuses as of 09/21/2023) [facility]01-13-20[facility] History of Past illness Narrative* Problem Noted Date Diagnosed Date Resolved Date Acute on chronic systolic co ngestive heart failure 08/26/2023 08/27/2023 documented as of this encounter (statuses as of 09/26/2023) [facility]01-[facility] History of Past illness Narrative* Problem Noted Date Diagnosed Date Resolved Date Acute on chronic systolic co ngestive heart failure 08/26/2023 08/27/2023 documented as of this encounter (statuses as of 09/26/2023) [facility]01-13-20[facility] History of Past illness Narrative* Problem Noted Date Diagnosed Date Resolved Date Acute on chronic systolic co ngestive heart failure 08/26/2023 08/27/2023 documented as of this encounter (statuses as of 09/29/2023) [facility]01-13-20[facility] History of Past illness Narrative* Problem Noted Date Diagnosed Date Resolved Date Acute on chronic systolic co ngestive heart failure 08/26/2023 08/27/2023 documented as of this encounter (statuses as of 10/02/2023) [facility]01-13-2024 NoteHNO ID: [id number] Author: NOTE, INTERFACE, ? Service: ? Author Type: ? Type: Progress Notes Filed: 08/26/2023 02:15 Note Text: Epic Scheduled Downtime: 08/26/2023 1:00:00 AM to 08/26/2023 2:04:22 [facility]01-12-2024 NoteHNO ID: [id number] Author: DUKE MORELOS RN Service: Care Management [...] TIME: 2:45 PM CONTACT #: [phone]01-11-2024 Note HNO ID: [id number] Author: MICHELINE SORTO MD Service: ? Author Type: Physician Type: Progress Notes Filed: 08/24/2023 08:19 Note Text: [facility] [place] DEPARTMENT OF CARDIAC SURGERY OUTPATIENT VISIT PCP: Peggy [place] [address] Referring Physician: Micheline Sorto [address] [facility] [address] Patient Type: New Visit to Determine Surgery: [...] valve is noncalcified. Normal caliber thoracic aorta. Form Tamper: LILIANA Transcribe Date/Time: Aug 23 2023 11:20A [...] physician via electronic medical record Micheline Sorto, [facility]01-10-2024 NoteHNO ID: [id number] Author: ALEA HARLEY MD Service: ? Author Type: Physician Type: Progress Notes Filed: 08/23/2023 12:58 Note Text: [facility] [place] [facility] Department of Cardiovascular Medicine SECTION OF CLINICAL CARDIOLOGY OUTPATIENT VISIT DATE August 23, 2023 OUTPATIENT VISIT TYPE NEW PRIMARY CARE PHYSICIAN: Peggy Nazario MD [address] [place] [address] REFERRING PHYSICIAN: Micheline Sorto [address] [facility] [address] CHIEF COMPLAINT: Mitral regurgitation. HISTORY OF PRESENT [...] emptying her bladder. When seen in the [facility] ER, she was found to be in [...] She is being referred by her private extension course coordinator, Dr.D. Henriquez for consideration of MVr. As [...] is a 73 year old female from [place], [place] here today for cardiovascular evaluation related [...] to take it. Late (more content not included)...[facility]01-10-2024 NoteHNO ID: [id number] Author: MITCH SCALES RN Service: Nursing Author [...] Asencio DATE: August 23, 2023 TIME: 7:21 [facility]01-10-2024 NoteHNO ID: [id number] Author: ANDREW MEEHAN RT(R) Service: Radiology Author [...] Andrew Meehan RT(R) August 23, 2023 7:35 [facility]12-11-2023 Note [id number] 07-24-2023 Miscellaneous Notes* Telephone Encounter - Rebecca Nunn - 07/24/2023 10:22 AM EST IN * Telephone Encounter - Katie Nicholson - 07/24/2023 10:08 AM EST Please register insurance Thank you! documented [facility] Evaluation + Plan note Extracted from: Title:Procedure Note Heart & Vascular Author:LEYDA KELLER MD, Johan Patino Date:07/21/23 Ordered: benzocaine/butamben/tetracaine topical, 3 spray(s), Chancellor-Top, Topical, q2min PRN Other (see comment), Routine, [...] Oxygen Therapy Saline Lock Insert Suctioning KRYSTINA ([facility]) Vital Signs Future Appointments Appointment Date:01/24/2024 02:30:00 PM Scheduled Provider:Micheline BROOKS MD Location:[facility] Appointment Type:URO Office Visit Future Scheduled Tests Laboratory* Basic Metabolic Panel 07/12/23 * Digoxin Level 07/12/23 [facility]12-08-2023 Hospital Discharge instructions Patient Education 07/21/2023 08:44:29 CV - Post-Transesophageal Echocardiogram (Custom) [place], [place] POST-TRANSESOPHAGEAL ECHOCARDIOGRAM AFTER THE PROCEDURE: Diet: [...] appointment Seek Medical Care if: Notify your extension course coordinator should you have any difficulty swallowing or coughing up blood. In the event you are unable to reach your extension course coordinator, please call [facility] at [phone] and the power digger operator will assist you. Follow Up Care 07/20/2023 11:03:45 With:Johan HENRIQUEZ Address: [address] [place] [phone] Business (1) When: Unknown Comments:-After your appointment with CC [facility]12-08-2023 Evaluation + Plan note Future Appointments Appointment Date:07/21/2023 08:00:00 AM Scheduled Provider: Location[facility] Appointment Type:[facility] () Appointment Date:07/21/2023 08:00:00 AM Scheduled Provider: Location:.[facility] Appointment Type:CV Echo () Appointment Date:01/24/2024 02:30:00 PM Scheduled Provider:Micheline BROOKS MD Location:[facility] [place] Appointment Type:URO Office Visit Future Scheduled Tests Laboratory* Basic Metabolic Panel 07/12/23 * Digoxin Level 07/12/23 Radiology* Echo Transesophageal 2D 07/21/23 [facility]11-24-2023 Hospital Discharge instructions Patient Education 07/07/2023 13:04:14 [...] health careprovider. Avoid caffeine, alcohol, and certain ykcy-apf-blgyzdt cold medicines. These may make you feel worse. Ask your pharmacist which medicines to avoid. General instructions Take xnpy-weo-ongafoh and prescription medicines only as told by [...] Depression Association of [place] (ADAA): www.adaa.org National Ramona on Mental Illness (YANI): www.yani.org Contact a health care provider if: [...] department or: Call your local emergency services (841 in the [place] Call a suicide crisis helpline, such as the National Suicide Prevention Lifeline at or 564 in the [place] This is open 24 hours a day in the [place] Text the Crisis Text Line at 820244 (in the [place] Summary Taking steps to [...] provider. Document Revised: 02/23/2022 Document Reviewed: 11/21/2021 [employer] Patient Education 2022 smartclip. 07/07/2023 13:04:14 Atrial Fibrillation Atrial Fibrillation Atrial [...] electrical signals of the heart. An ambulatory bus monitor to record your heart's activity for a [...] provider. Document Revised: 01/22/2020 Document Reviewed: 01/22/2020 [employer] Patient Education 2022 smartclip. Follow Up Care 07/07/2023 08:56:48 With:Johan HENRIQUEZ Address: [address] [place] [phone] Business (1) When:07/10/2023 12:45:48 With:Peggy Nazario Address: [address] [place] [address]- Business (1) When:07/10/2023 12:45:46 [facility]11-24-2023 NoteSelect [facility]Comment on above:Result Comment: Electronically Signed By: Nahid SERRATO MD\.br\Date and Time Signed: 07/07/23 12:07 [id number] Evaluation + Plan noteExtracted from: Title:APSO Note Author:Nahid SERRATO MD Date:09/05/22 73-year-old female with history of ureteral stricture with previous dilations, anxiety disorder presented with complaints of urinary hesitancy, constipation, cough and shortness of breath and was admitted to [facility] with acute paroxysmal atrial fibrillation with rapid [...] IV Cardizem drip. Continue on Coreg, digoxin. Pressure Supervisor debating on starting patient on amiodarone. Eliquis to start in 4 days after cardiac catheterization. Ordered: Sbsq Hospital Care/Day Moderate 35 Minutes [id number] 2. Acute systolic congestive heart failure (I50.21: Acute systolic (congestive) heart failure) Acute systolic congestive heart failure present on admission. Seen by extension course coordinator and underwent cardiac catheterization that showed mild coronary artery disease. Also shows severe mitral regurgitation and tricuspid regurgitation with ejection fraction of 30 to 35%. Continue on aspirin, Coreg, losartan and Lasix. [facility]: [facility] Moderate 35 Minutes 96619 3. Severe mitral regurgitation (I34.0: Nonrheumatic mitral (valve) insufficiency) As seen on cardiac catheterization. Patient will follow-up with extension course coordinator for KRYSTINA and then valvular repair. Pressure Supervisor also considering transferring patient to or [facility]. Ordered: [facility] Care/Day Moderate 35 Minutes [id number] 4. Elevated troponin (R79.89: Other specified abnormal findings of blood chemistry) Secondary to type II non-ST segment elevation myocardial infarction from above and mild coronary artery disease.. Seen by extension course coordinator and underwent cardiac catheterization that showed mild coronary artery disease. Continue on aspirin, Lipitor, and Coreg. Ordered: [facility] Care/Day Moderate 35 Minutes [id number] 5. Mild coronary artery disease (I25.10: Atherosclerotic heart disease of [place] coronary artery without angina pectoris) As seen on cardiac catheterization on 07/05/2023. Continue on Lipitor and aspirin. Ordered: [facility] Care/Day Moderate 35 Minutes [id number] 6. anxiety (F41.9: Anxiety disorder, unspecified) Increase [...] deep vein thrombosis (DVT) prophylaxis (Z79.899: Other half-way (current) drug therapy) SCDs. Eliquis to resume in 4 days. Disposition: Home soon today if heart rate is under good control with plans to follow-up with extension course coordinator and urologist as outpatient. However if heart rate is still elevated then we will call Critical access hospital or [facility] to see if we can transfer patient for valve repair/replacement. I discussed the diagnosis and plan of care with the patient at the bedside. Moderate level of MDM based on addressing above issues. This documentation was transcribed using voice recognition software. Several attempts were made to ensure accuracy. However inadvertent computerized sheet metal apprentice errors may be present. Nahid Serrato. Hospitalist. [...] to transfer the patient directly to the [facility] or [facility] given her logistic challenges with getting a [...] artery disease (I25.10: Atherosclerotic heart disease of [place] coronary artery without angina pectoris) 6. Pleural effusion (J90: Pleural effusion, not elsewhere classified) 7. Urinary hesitancy (R39.11: Hesitancy of micturition) 8. Other urethral stricture, female (N35.82: Other urethral stricture, female) 9. Urinary retention (R33.9: Retention of urine, unspecified) 10. Constipation (K59.00: Constipation, unspecified) 11. On deep vein thrombosis (DVT) prophylaxis (Z79.899: Other half-way (current) drug therapy) Orders: acetaminophen, 650 mg [...] shortness of breath and was admitted to [facility] with acute paroxysmal atrial fibrillation with rapid [...] date 07/06/23 9:00:00 EST, 07/05/23 11:13:00 EST [facility] Care/Day Moderate 35 Minutes 55301 2. Acute systolic congestive heart failure (I50.21: Acute systolic (congestive) heart failure) Acute systolic congestive heart failure present on admission. Seen by extension course coordinator. She is status post cardiac catheterization that showed mild coronary artery disease. Also showed severe mitral regurgitation and tricuspid regurgitation.. Ejection fraction of 30 to 35%. Continue on aspirin, Coreg, losartan, Lasix. Ordered: [facility] Care/Day Moderate 35 Minutes 77103 3. Severe mitral regurgitation (I34.0: Nonrheumatic mitral (valve) insufficiency) Severe mitral regurgitation seen on cardiac catheterization. Follow-up with extension course coordinator as outpatient for KRYSTINA and then valvular repair. Ordered: [facility] Care/Day Moderate 35 Minutes [id number] 4. Elevated troponin (R79.89: Other specified abnormal findings of blood chemistry) Secondary to type II non-ST segment elevation myocardial infarction from above and mild coronary artery disease.. Seen by extension course coordinator and underwent cardiac catheterization that showed mild coronary artery disease. Continue on aspirin, Lipitor, and Coreg. Ordered: furosemide, 40 mg = 1 tab(s), Tab, Oral, Daily, Routine, Start date 07/06/23 9:00:00 EST, 07/05/23 11:13:00 EST [facility] Care/Day Moderate 35 Minutes 64897 5. Mild coronary artery disease (I25.10: Atherosclerotic heart disease of [place] coronary artery without angina pectoris) As seen on cardiac catheterization on 07/06/2023. Continue on Lipitor and aspirin. Ordered: [facility] Care/Day Moderate 35 Minutes [id number] 6. Pleural effusion (J90: Pleural effusion, not [...] deep vein thrombosis (DVT) prophylaxis (Z79.899: Other exterminator termite (current) drug therapy) Lovenox. Disposition: Home in a.m. to follow-up with extension course coordinator and urologist. I discussed the diagnosis and plan of care with the patient at the bedside. Moderate level of MDM based on addressing above issues. This documentation was transcribed using voice recognition software. Several attempts were made to ensure accuracy. However inadvertent computerized sheet metal apprentice errors may be present. Nahid Serrato. Hospitalist. Orders: Basic Metabolic Panel Basic Metabolic Panel Referral to [facility] Extracted from: Title:APSO Note Author:JAZMÍN MCMAHON, Nahid Date:09/03/22 73-year-old female with history of ureteral stricture with previous dilations, anxiety disorder presented with complaints of urinary hesitancy, constipation, cough and shortness of breath and was admitted to [facility] with acute paroxysmal atrial fibrillation with rapid [...] BID, # 60 tab(s), Refills(s) 0, [facility]: [id number], 165, cm, 07/02/23 21:30:00 EST, Height/Length Dosing, 55.7, kg, 07/02/23 21:30:00 EST, Weight Dosing Echo Transthoracic Complete Sbsq Hospital Care/Day Moderate 35 Minutes 87346 2. Acute systolic congestive heart failure (I50.21: Acute systolic (congestive) heart failure) Acute systolic congestive heart failure present on admission. Cardiology is following. Ejection fraction of 30 to 35%. Cardiology is planning on cardiac catheterization for ischemic work-up in AM. Meanwhile continue on aspirin, Coreg, losartan. We will verify with extension course coordinator about Lasix. Ordered: [facility] Hospital Care/Day Moderate 35 Minutes 43796 3. Elevated troponin (R79.89: Other specified abnormal findings of blood chemistry) Secondary to type II non-ST segment elevation myocardial infarction from above. Echocardiogram shows ejection fraction of 30 to 35%. Pressure Supervisor following with plans for cardiac catheterization in AM. Meanwhile continue on aspirin and Coreg. Ordered: Echo Transthoracic Complete [facility] Care/Day Moderate 35 Minutes 45512 4. Pleural effusion (J90: Pleural effusion, not elsewhere classified) Small pleural effusion secondary to acute systolic congestive heart failure. Supportive care. Lasix as needed. Ordered: [facility] Care/Day Moderate 35 Minutes 11653 5. Urinary hesitancy (R39.11: Hesitancy of micturition) Secondary to urethral stricture and urinary retention. She is status post Robles catheter placement. Urology consult reviewed by me. I appreciate and agreed recommendations. Patient will discharge with Robles catheter and leg bag to follow-up with urologist as outpatient. Ordered: [facility] Care/Day Moderate 35 Minutes 44738 6. Other urethral stricture, female (N35.82: Other urethral stricture, female) Resulting in urinary retention and hesitancy. She is status post Robles catheter placement. She will follow-up with urologist as outpatient. 7. Urinary retention (R33.9: Retention of urine, unspecified) Secondary to above ureteral stricture. Status post Robles catheter placement. Follow-up with urologist as outpatient to consider alpha-yolette treatment. 8. Constipation (K59.00: Constipation, unspecified) Resolved. Ordered: lactulose, 20 gram = 30 mL, Syrup, Oral, Once, Stop date 07/03/23 12:00:00 EST, Routine, Start date 07/03/23 12:00:00 EST, 07/03/23 12:00:00 EST polyethylene glycol 3350, 17 gram = 1 EA, Powder-Recon, Oral, Daily, NOW, Start date 07/03/23 11:16:00 EST [facility] Care/Day Moderate 35 Minutes 25234 9. On deep vein thrombosis (DVT) prophylaxis (Z79.899: Other half-way (current) drug therapy) Lovenox. Disposition: Pending cardiac catheterization in AM. I discussed the diagnosis and plan of care with the patient at the bedside. I also spoke with the patient's daughter Iván over the phone. Moderate level of MDM based on addressing above issues. This documentation was transcribed using voice recognition software. Several attempts were made to ensure accuracy. However inadvertent computerized sheet metal apprentice errors may be present. Nahid Serrato. Hospitalist. [...] deep vein thrombosis (DVT) prophylaxis (Z79.899: Other half-way (current) drug therapy) Urinary retention (R33.9: Retention [...] deep vein thrombosis (DVT) prophylaxis (Z79.899: Other exterminator termite (current) drug therapy) Urinary retention (R33.9: Retention of urine, unspecified) Extracted from: Title:Urology Consult and H&P 2 Author:DYLAN MCMAHON, Cody Dumont Date:07/03/23 Impression and Plan Diagnosis Atrial fibrillation with RVR (ITU81-VK I48.91, Discharge, Medical). Constipation (JVK39-VD K59.00, Discharge, Medical). Other urethral stricture, female (FGE78-FM N35.82, Discharge, Medical). Urinary retention (AJF46-VR R33.9, Working, Medical). Course: Worsening, Overall this [...] I ordered echocardiogram. Ordered: Echo Transthoracic Complete [facility] Care/Day Moderate 35 Minutes 72259 2. Elevated troponin (R79.89: Other specified abnormal findings of blood chemistry) Secondary to type II non-ST segment elevation myocardial infarction from above. Echocardiogram ordered. Cardiology consult pending. Continue on aspirin. Ordered: [facility]horacic [facility]/Day Moderate 35 Minutes 18899 3. Urinary hesitancy (R39.11: Hesitancy of micturition) Secondary to urethral stricture. Patient is status post Robles catheter placement for urinary retention. She will follow-up with urologist as outpatient. Ordered: [facility] Care/Day Moderate 35 Minutes 08178 4. Constipation (K59.00: Constipation, unspecified) Started patient on MiraLAX and lactulose. Ordered: lactulose, 20 gram = 30 mL, Syrup, Oral, Once, Stop date 07/03/23 12:00:00 EST, Routine, Start date 07/03/23 12:00:00 EST, 07/03/23 12:00:00 EST polyethylene glycol 3350, 17 gram = 1 EA, Powder-Recon, Oral, Daily, Routine, Start date 07/03/23 12:00:00 EST, 07/03/23 12:00:00 EST [facility] Care/Day Moderate 35 Minutes 97140 5. Other urethral stricture, female (N35.82: Other urethral stricture, female) Resulting in urinary retention. Patient is status post Robles catheter during this admission. Gets dilation of the ureter every 6 months. Urology consult pending. 6. On deep vein thrombosis (DVT) prophylaxis (Z79.899: Other half-way (current) drug therapy) Lovenox. Disposition: Pending echocardiogram, cardiology and urology consult. I discussed the diagnosis and plan of care with the patient at the bedside. Moderate level of MDM based on addressing above issues. This documentation was transcribed using voice recognition software. Several attempts were made to ensure accuracy. However inadvertent computerized sheet metal apprentice errors may be present. Nahid Serrato. Hospitalist. [...] Urinary hesitancy (R39.11: Hesitancy of micturition) Maintain Robles for time being. Will consult urology. 4. Constipation (K59.00: Constipation, unspecified) MiraLAX as needed 5. Other urethral stricture, female (N35.82: Other urethral stricture, female) Supportive care. Await urology input. 6. On deep vein thrombosis (DVT) prophylaxis (Z79.899: Other exterminator termite (current) drug therapy) SCD, enoxaparin Orders: acetaminophen, [...] Date:11/22/2023 01:00:00 PM Scheduled Provider:Micheline BROOKS MD Location:[facility] Appointment Type:URO Office Visit Future Scheduled Tests Laboratory* Basic Metabolic Panel 07/12/23 * Digoxin Level 07/12/23 [facility]11-22-2023 Evaluation + Plan noteExtracted from: Title:Procedure Note [...] Date:11/22/2023 01:00:00 PM Scheduled Provider:Micheline BROOKS MD Location:[facility] Appointment Type:URO Office Visit Future Scheduled Tests Laboratory* Basic Metabolic Panel 07/12/23 * Digoxin Level 07/12/23 [facility]11-22-2023 Hospital Discharge instructions Patient Education 07/05/2023 09:04:47 CV - Cardiovascular Discharge Instructions (Custom) [place], [place] CARDIOVASCULAR DISCHARGE INSTRUCTIONS Diet: Resume pre-procedure [...] hours post procedure: Actoplus MetGlucophageGlucophage XR GlucovanceAvandametFortamet Ptc-pbgcvgtesXrlgknCbvl-kcbojhewd GlumetzaJanumetMetaglip RiometGlycomet *Minimal pain, soreness and/or discomfort [...] you are interested in smoking cessation, contact [facility] at [phone], ext. [phone]. In the event you are unable to reach your physician, please call [facility] at [phone] and the power digger operator will assist you. Seek Immediate Medical Care for: Bleeding: Apply continuous pressure to the site and Call 911. Should the arm or leg become cold, numb, blue or white call your physician immediately. Signs of infection are redness, warmth, swelling, increased tenderness, colored drainage, fever or chills Chest pain Follow Up Care 07/02/2023 21:18:33 With:Johan HENRIQUEZ Address: [address] [place] [phone]- [phone] Business (1) When:2 weeks Comments:Call for followup appointment With:Peggy Nazario Address: [address] [place] [phone] Business (1) When:07/10/2023 13:00:00 With:Micheline BROOKS Address: [facility] [address] [place] [address] Business (1) When: Unknown Comments:Call for followup appointment re: the indwelling Robles catheter. [facility]11-20-2023 [facility]Comment on above:Result Comment: Electronically Signed By: Noman PATTON DO\Date and Time Signed: 07/03/23 02:59 [id number] Hospital Discharge instructions Patient Education 07/01/2023 00:37:46 Abdominal Pain, Adult, Fusz-te-Xzgr Abdominal Pain, Adult Many things can cause belly (abdominal) pain. Most times, belly pain is not dangerous. Many cases of belly pain can be watched and treated at home. Sometimes, though, belly pain is serious. Your doctor will try to find the cause of your belly pain. Follow these instructions at home: Medicines Take tprs-lnd-pqgjgrs and prescription medicines only as told by [...] your belly pain for any changes. Take dyiv-mfa-yjkrycu and prescription medicines only as told by [...] provider. Document Revised: 12/09/2019 Document Reviewed: 12/09/2019 [employer] Patient Education 2022 smartclip. Follow Up Care 06/30/2023 18:51:38 With:Peggy Nazario Address: [address] [place] [address] [place] [address] Business (1) When:07/04/2023 Comments:You can use the Bentyl, Zofran every 6 hours as needed for pain and nausea. Please follow-up with your primary care doctor next 2 to 3 days for further evaluation management. Please return to the ED for any new or worsening symptoms. [facility]11-17-2023 Evaluation + Plan noteExtracted from: Title:ED Note Author:Koby Masterson DO Date :06/30/23 Abdominal pain, acute (R10.9 : Unspecified abdominal pain) Orders: dicyclomine, 20 mg = 2 mL, Injection, IntraMuscular, Once, Stop date 06/30/23 20:58:00 EST, STAT, Start date 06/30/23 20:58:00 EST, 06/30/23 20:58:00 EST dicyclomine, 10 mg = 1 cap(s), Oral, QID, X 7 day(s), # 14 cap(s), Refills(s) 0, [facility] #[id number], 165, cm, 06/30/23 19:37:00 EST, Height/Length Dosing, [...] q8hr, # 12 tab(s), Refills(s) 0, Pharmacy: [facility] #[id number], 165, cm, 06/30/23 19:37:00 EST, Height/Length Dosing, 55.7, kg, 06/30/23 19:37:00 EST, Weight Dosing Automated Diff Basic Metabolic Panel CBC w/ Auto Diff CT Abdomen/Pelvis w/o Contrast eGFR Extra Blue Tube Hepatic Function Panel Lipase Level UA With Cult Reflex Future Appointments Appointment Date:11/22/2023 01:00:00 PM Scheduled Provider:Micheline BROOKS MD Location:[facility] Appointment Type:URO Office Visit [facility]10-10-2023 Note [id number] Hospital Discharge instructions Patient Education 04/26/2023 [...] symptoms are. Treatment may include: Using an ypix-sps-dfvwhji vaginal lubricant before sex. Using a long-acting [...] Follow these instructions at home: Medicines Take krwm-vbm-yldtfoa and prescription medicines only as told by your health care provider. Do not use herbal or alternative medicines unless your health care provider says that you can. Use kkbj-dws-pviqmaz creams, lubricants, or moisturizers for dryness only [...] provider. Document Revised: 01/28/2021 Document Reviewed: 01/28/2021 [employer] Patient Education 2022 smartclip. Follow Up Care 10/25/2022 10:34:06 With:CECILIA MCMAHON, Micheline Morgan, URL Address: [facility] [address] , [place] [address]- When: Unknown [facility] 08-22-2023 Hospital Discharge instructions Patient [...] Follow these instructions at home: Medicines Take qrdw-zgm-liujmob and prescription medicines only as told by [...] Watch your condition for any changes. Take qeqp-cnc-dccdfrm and prescription medicines only as told by [...] provider. Document Revised: 09/18/2020 Document Reviewed: 12/09/2019 [employer] Patient Education 2022 smartclip. Follow Up Care 04/04/2023 13:51:29 With:Peggy Nazario Address: [address] [place], [place] [phone] [facility] (1) When:04/07/2023 16:25:09 Comments:Call the office [...] you develop any new or worsening symptoms. [facility]06-18-2023 Hospital Discharge instructions Patient Education 01/28/2023 23:28:19 RICE Therapy for Routine Care of Injuries, Moyx-iv-Qxkb RICE Therapy for Routine Care of Injuries [...] provider. Document Revised: 05/20/2021 Document Reviewed: 05/20/2021 [employer] Patient Education 2022 [employer] 01/28/2023 23:28:19 Hand Contusion Hand Contusion [...] An elastic wrap to support your hand. Nvmo-ryo-yvzqbyf medicines to control pain. Follow these instructions [...] sitting or lying down. General instructions Take ciop-rba-nhdcflt and prescription medicines only as told by [...] provider. Document Revised: 11/18/2021 Document Reviewed: 11/18/2021 [employer] Patient Education 2022 smartclip. Follow Up Care 01/28/2023 21:23:51 With:Peggy Nazario Address: [address] [place] [phone] Business (1) When:01/31/2023 Comments:Follow-up with your primary care provider in 3 to 5 days. If symptoms worsen, do not improve, or new symptoms arise please report back to emergency department for further evaluation. [facility]06-17-20[facility] Evaluation + Plan noteExtracted from: Title:ED Note Author:Med Medeiros PA-C te:01/28/23 Contusion of left hand (S60. 222A: Contusion of left hand, initial encounter) Orders: XR Hand 3+ Views Left Future Appointments Appointment Date:04/26/2023 03:15:00 PM Scheduled Provider:Micheline BROOKS MD Location:[facility] Appointment Type:URO Office Visit [facility]03-14-2023 Note [id number]:127[facility] 10-25-2022 Hospital Discharge instructions Patient Education 10/25/2022 [...] [facility] [address] , [place] [address]- Business (1) When:04/27/2023 10:27:19 [facility]07-21-2022 Hospital Discharge instructions Patient Education 03/03/2022 10:35:19 [...] reconstructed. Follow these instructions at home: Take tnwx-lzb-qkycimy and prescription medicines only as told by [...] 08/26/2016 Document Revised: 03/13/2019 Document Reviewed: 03/13/2019 [employer] Patient Education 2020 smartclip. Follow Up Care 02/28/2022 09:40:23 With:CARMINA GARRISON PA-C, URL Address: [address] [place] [address] When: Unknown [facility] 07-05-2022 Hospital Discharge instructions Patient Education 02/15/2022 14:03:18 Contusion, Zlci-vl-Mvqw Contusion A contusion is a deep bruise. [...] sitting or lying down. General instructions Take bqal-rrs-iclhdaa and prescription medicines only as told by [...] is also called RICE. Youmay be given sqph-koh-oiuezgz medicines for pain. Contact a doctor if [...] 01/16/2009 Document Revised: 03/22/2019 Document Reviewed: 03/22/2019 [employer]ark[employer] Patient Education 2020 [employer]. 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 Contact a doctor if: Your symptoms do [...] 07/31/2006 Document Revised: 11/20/2019 Document Reviewed: 10/06/2017 [employer]imia Patient Education 2020 [employer] Follow Up Care 12/24/2021 17:34:06 With:Krysta Church Address: [address] [place] [address], [address] [place] [phone] Business (1) When:12/27/2021 18:21:21 With:Peggy Nazario Address: [address] [place] [address]- Business (1) When:Within 3 Day(s) [facility] Future Appointments Appointment Date:03/02/2022 02:00:00 PM Scheduled Provider:Micheline BROOKS MD Location:[facility] Appointment Type:URO Office Visit Future Scheduled Tests Laboratory* COVID- ([facility]) 08/12/21 [facility] Future Appointments Appointment Date:02/28/2022 09:30:00 AM Scheduled Provider:Yennifer Iraheta MD [facility] Appointment Type:Vascular New Patient (FT) Appointment Date:03/02/2022 02:00:00 PM Scheduled Provider:Micheline BROOKS MD Location:[facility] Appointment Type:URO Office Visit Future Scheduled Tests Laboratory* COVID-19 ([facility]) 08/12/21 [facility] Future Appointments Appointment Date:04/04/2022 10:00:00 AM Scheduled Provider:Yennifer Iraheta MD Location:[facility] Appointment Type:Vascular New Patient (FT) Future Scheduled Tests Laboratory* COVID-19 ([facility]) 08/12/21 [facility] Evaluation + Plan note Future Appointments Appointment Date:07/25/2022 09:15:00 AM Scheduled Provider:Yennifer Iraheta MD [facility] Appointment Type:Vascular Follow Up (FT) Appointment Date:09/26/2022 02:45:00 PM Scheduled Provider:Micheline BROOKS MD Location:[facility] Appointment Type:URO Office Visit Future Scheduled Tests Laboratory* COVID-19 ([facility]) 08/12/21 Radiology* US LE Venous Duplex Insufficiency Bilat 06/14/22 [facility] Future Appointments Appointment Date:07/25/2022 09:15:00 AM Scheduled Provider:Yennifer Iraheta MD [facility] Appointment Type:Vascular Follow Up (FT) Appointment Date:09/26/2022 02:45:00 PM Scheduled Provider:Micheline BROOKS MD Location:[facility] Appointment Type:URO Office Visit Future Scheduled Tests Laboratory* COVID-19 ([facility]) 08/12/21 [facility] Future Appointments Appointment Date:09/26/2022 02:45:00 PM Scheduled Provider:[facility]iche[facility]KS [facility] Future Appointments Appointment Date:12/05/2022 03:00:00 PM Scheduled Provider: [facility] Appointment Type:MA Screen () Appointment Date:04/26/2023 03:15:00 PM Scheduled Provider:Micheline BROOKS MD [facility] Appointment Type:URO Office Visit Future Scheduled Tests Radiology* MA Mamm Screen w/CAD if perf and 3D Zac 12/05/22 [facility] Future Appointments Appointment Date:04/26/2023 03:15:00 PM Scheduled Provider:Micheline BROOKS MD [facility] Appointment Type:URO [facility] Visit [facility] Future Appointments Appointment Date:07/19/2023 03:00:00 PM Scheduled Provider:Micheline BROOKS MD [facility] Appointment Type:URO Office Visit Appointment Date:07/20/2023 10:30:00 AM Scheduled Provider:Johan HENRIQUEZ MD [facility] Appointment Type:Cardiology Inpatient Follow Up (FT) Appointment Date:11/22/2023 01:00:00 PM Scheduled Provider:Micheline BROOKS MD [facility] Appointment Type:URO Office Visit Future Scheduled Tests Laboratory* Basic Metabolic Panel 07/12/23 * Digoxin Level 07/12/23 [facility]* Diagnosis Anxiety Anxiety state, unspecified [facility] Diagnosis Gastroesophageal reflux disease without esophagitis Esophageal reflux [facility]* Diagnosis Non-rheumatic mitral regurgitation- Primary Mitral valve disorders Chronic HFrEF (heart failure with reduced ejection fraction) (HCC) Nonrheumatic tricuspid valve regurgitation Tricuspid valve disorders, specified as nonrheumatic Non-ischemic cardiomyopathy (HCC) Other primary cardiomyopathies Persistent atrial fibrillation (HCC) Atrial fibrillation [facility] 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 Long-term (current) use of 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s History of cardioversion Personal history of surgery to heart and great vessels, presenting hazards to health Primary hypertension Unspecified essential hypertension documented in this encounter [facility] note* Diagnosis Mitral valve insufficiency, unspecified etiology- Primary Anxiety Anxiety state, unspecified Paroxysmal atrial fibrillation (CMS/HCC) Atrial fibrillation Other cardiomyopathy (CMS/HCC) Hospital discharge follow-up Other follow-up examination Other thrombophilia (D68.69) Atherosclerosis of aorta (I70.0) Atherosclerosis of aorta [facility]* Diagnosis Feeling of incomplete bladder emptying- Primary Incomplete bladder emptying Stricture of female urethra, unspecified stricture type Severe protein-calorie malnutrition (HCC) Other severe protein-calorie malnutrition documented in this encounter [facility] note* Diagnosis Screening for genitourinary condition Screening for other and unspecified genitourinary condition documented in this encounter [facility] course Narrative No data available for this section [facility] Discharge instructions No data available for this section [facility] No data available for this section [facility] for referral (narrative) , Mitral Valve and Tricuspid Valve Repair. Referred by: MARTINEZ MCMAHON, Johan Paitno [facility] for referral (narrative)* Outpatient Procedure (Routine) - Authorized Specialty Diagnoses / Procedures Referred By Marietta aguiar Referred To [facility] Diagnoses Non-rheumatic mitral regurgitation Persistent atrial fibrillation (HCC) Non-ischemic cardiomyopathy (HCC) Chronic HFrEF (heart failure with reduced ejection fraction) (HCC) Procedures ECG COMPLETE ECG ROUTINE ECG W/LEAST 12 LDS W/I&R Ana Rivas, DELFINO.MICROBIOLOGY LAB ANALYST [address] [place] [address] [facility] [place] [address] [place] [address] Referral ID Status Reason Start Date Expiration Date Visits Requested Visits Authorized [id number] Authorized Auto-Generat ed Referral 11/08/2023 09/25/2024 1 1 * Transition of Care (Routine) - Ref Not Required Specialty Diagnoses / Procedures Referred By Contac t Referred To Contact Diagnoses Non-rheumatic mitral regurgitation Persistent atrial fibrillation (HCC) Non-ischemic cardiomyopathy (HCC) Chronic HFrEF (heart failure with reduced ejection fraction) (HCC) Procedures CARDIOVASCULAR MEDICINE OP FOLLOW UP APPT Ana Leary APRN.CNP [address] [id number] Referral ID Status Reason Start Date Expiration Date Visits Requested Visits Authorized [id number] Ref Not Required PCP Requested Referral 09/26/2023 09/25/2024 1 1 * Outpatient Procedure (Routine) - Authorized Specialty Diagnoses / Procedures Referred By Contac t Referred To [facility] Diagnoses Non-rheumatic mitral regurgitation Persistent atrial fibrillation (HCC) Non-ischemic cardiomyopathy (HCC) Chronic HFrEF (heart failure with reduced ejection fraction) (HCC) Procedures ECG COMPLETE ECG ROUTINE ECG W/LEAST 12 LDS W/I&R Ana Rivas APRN.MICROBIOLOGY LAB ANALYST [address] [place] [address] [facility] [place] [address] [place] [address] Referral ID Status Reason Start Date Expiration Date Visits Requested Visits Authorized [id number] Authorized Auto-Generat ed Referral 10/25/2023 09/25/2024 1 1 * Transition of Care (Routine) - Ref Not Required Specialty Diagnoses / Procedures Referred By Contac t Referred To Contact Diagnoses Non-rheumatic mitral regurgitation Persistent atrial fibrillation (HCC) Non-ischemic cardiomyopathy (HCC) Chronic HFrEF (heart failure with reduced ejection fraction) (HCC) Procedures CARDIOVASCULAR MEDICINE OP FOLLOW UP APPT ORDER Ana Rivas APRN.CNP [address] [place] [address] Referral ID Status Reason Start Date Expiration Date Visits Requested Visits Authorized [id number] Ref Not Required PCP Requested Referral 09/26/2023 [...] W/LEAST 12 LDS W/I&R Ana Rivas APRN.CNP [address] [place] [address] [facility] [place] [address] [place] [address] Referral ID Status Reason Start Date Expiration Date Visits Requested Visits Authorized [id number] Authorized Auto-Generat ed Referral 10/10/2023 09/25/2024 1 1 * Transition of Care (Routine) - Ref Not Required Specialty Diagnoses / Procedures Referred By Contac t Referred To Contact Diagnoses Non-rheumatic mitral regurgitation Persistent atrial fibrillation (HCC) Non-ischemic cardiomyopathy (HCC) Chronic HFrEF (heart failure with reduced ejection fraction) (HCC) Procedures CARDIOVASCULAR MEDICINE OP FOLLOW UP APPT ORDER Ana Rivas APRN.CNP [address] [place] [address] Referral ID Status Reason Start Date Expiration Date Visits Requested Visits Authorized [id number] Ref Not Required PCP Requested Referral 09/26/2023 09/25/2024 1 1 [facility] for referral (narrative)* Consultation (Routine) - Pending Review Specialty Diagnoses / Procedures Referred By Marietta t Referred To Contact Cardiothoracic Surgery Diagnoses Mitral valve insufficiency, unspecified etiology Procedures FL OFFICE/OUTPATIENT NEW HIGH MDM 60 MINUTES Peggy Nazario MD [address] [place] [address] Referral ID Status Reason Start Date Expiration Date Visits Requested Visits Authorized [id number] Pending Review Specialty Services Required 09/18/2023 03/16/2024 [...] section and content) DATE CREATED AUTHOR 08/23/2021 [facility] dical Specialist DATE CREATED AUTHOR AUTHOR'S ORGANIZ ATION 09/19/2023 [facility] d[facility] Specialists EPIC DATE CREATED AUTHOR AUTHOR'S ORGANIZ ATION 09/22/2023 [facility] DATE CREATED AUTHOR AUTHOR'S ORGANIZ ATION 10/13/2023 [facility] DATE CREATED AUTHOR AUTHOR'S ORGANIZ ATION 10/14/2023 [facility] Care Team (unrecognized sect ion and content) Fitness Plan Coordinator Relationship Specialty Start Date End Date Peggy Nazario [address] [place] [address] PCP - General Family Medicine 07/24/23 Micheline Sorto MD [address] [place] [address] Surgeon Cardiac Surg 07/24/23 Johan Henriquez MD [address] [place] [address] Pressure Supervisor Cardiology 07/24/23 Fitness Plan Coordinator Relationship Specialty Start Date End Date Peggy Nazario MD [address] [place] [address] PCP - ACO Reach 01/05/23 Peggy Nazario MD [address] [place] [address] PCP - General Family Medicine 02/08/23 Fitness Plan Coordinator Relationship Specialty Start Date End Date Peggy Nazario MD [address] [place] [address] PCP - ACO Reach 01/05/23 Peggy Nazario MD [address] [place] [address] PCP - General Family Medicine 02/08/23 Fitness Plan Coordinator Relationship Specialty Start Date End Date Peggy Nazario [address] [place] [address] PCP - General Family Medicine 07/24/23 Micheline Sorto MD [address] [place] [address] Surgeon Cardiac Surg 07/24/23 Johan Henriquez MD [address] [place] [address] Pressure Supervisor Cardiology 07/24/23 Alea Harley MD [address] [place] [address] Cardiology 07/28/23 Alea Harley MD [address] [place] [address] Primary Staff Physician Cardiology 08/23/23 Fitness Plan Coordinator Relationship Specialty Start Date End Date Peggy Nazario [address] [place] [address] PCP - General Family Medicine 07/24/23 Micheline Sorto MD [address] [place] [id number] Surgeon Cardiac Surg 07/24/23 Johan Henriquez MD [address] [place] [address] Pressure Supervisor Cardiology 07/24/23 Alea Harley MD [address] [place] [address] Cardiology 07/28/23 Alea Harley MD [address] [place] [address] Primary Staff Physician Cardiology 08/23/23 Fitness Plan Coordinator Relationship Specialty Start Date End Date Peggy Nazario [address] [place] [place] [address] PCP - General Family Medicine 07/24/23 Micheline Sorto MD [address] [place] [address] Surgeon Cardiac Surg 07/24/23 Johan Henriquez MD [address] [place] [address] Pressure Supervisor Cardiology 07/24/23 Alea Harley MD [address] [place] [address] Cardiology 07/28/23 Alea Harley MD [address] [place] [address] Primary Staff Physician Cardiology 08/23/23 Fitness Plan Coordinator Relationship Specialty Start Date End Date Peggy Nazario MD [address] [place] [address] PCP - ACO Reach 01/05/23 Peggy Nazario MD [address] [place] [address] PCP - General Family Medicine 02/08/23 Fitness Plan Coordinator Relationship Specialty Start Date End Date Peggy Nazario [address] [place] [address] PCP - General Family Medicine 07/24/23 Micheline Sorto MD [address] [place] [address] Surgeon Cardiac Surg 07/24/23 Johan Henriquez MD [address] [place] [address] Pressure Supervisor Cardiology 07/24/23 Alea Harley MD [address] [place], [place] [id number] Cardiology 07/28/23 Alea Harley MD [address] [place] [address] Primary Staff Physician Cardiology 08/23/23 Fitness Plan Coordinator Relationship Specialty Start Date End Date Peggy Nazario MD [address] [place] [address] PCP - ACO Reach 01/05/23 Peggy Nazario MD [address] [place] [address] PCP - General Family Medicine 02/08/23 Fitness Plan Coordinator Relationship Specialty Start Date End Date Peggy Nazario [address] [place] [place] [address] PCP - General Family Medicine 07/24/23 Micheline Sorto MD [address] [place] [address] Surgeon Cardiac Surg 07/24/23 Johan Henriquez MD [address] [place] [address] Pressure Supervisor Cardiology 07/24/23 Alea Harley MD [address] [place] [address] Cardiology 07/28/23 Alea Harley MD [address] [place] [address] Primary Staff Physician Cardiology 08/23/23 Fitness Plan Coordinator Relationship Specialty Start Date End Date Peggy Nazario [address] [place] [address] PCP - General Family Medicine 07/24/23 Micheline Sorto MD [address] [place] [address] Surgeon Cardiac Surg 07/24/23 Johan Henriquez MD [address] [place] [address] Pressure Supervisor Cardiology 07/24/23 Alea Halrey MD [address] [place] [address] Cardiology 07/28/23 Alea Harley MD [address] [facility] [place] [address] Primary Staff Physician Cardiology 08/23/23 Source Comments (unrecognize d section and content) In the event this informatio n is protected by the Federal Confidentiality of Alcohol and Drug Abuse Patient Records regulations: The Federal rules restrict any use of the information to criminally investigate or prosecute any alcohol or drug abuse patient.[facility] Hospital[facility] the event this information is protected by the Federal Confidentiality of Alcohol and Drug Abuse Patient Records regulations: The Federal rules restrict any use of the information to criminally investigate or prosecute any alcohol or drug abuse patient.[facility] HospitalIn the event this information is protected by the Federal Confidentiality of Alcohol and Drug Abuse Patient Records regulations: The Federal rules restrict any use of the information to criminally investigate or prosecute any alcohol or drug abuse patient.[facility] HospitalIn the event this information is protected by the Federal Confidentiality of Alcohol and Drug Abuse Patient Records regulations: The Federal rules restrict any use of the information to criminally investigate or prosecute any alcohol or drug abuse patient.[facility] HospitalIn the event this information is protected by the Federal Confidentiality of Alcohol and Drug Abuse Patient Records regulations: The Federal rules restrict any use of the information to criminally investigate or prosecute any alcohol or drug abuse patient.[facility] HospitalIn the event this information is protected by the Federal Confidentiality of Alcohol and Drug Abuse Patient Records regulations: The Federal rules restrict any use of the information to criminally investigate or prosecute any alcohol or drug abuse patient.[facility] HospitalIn the event this information is protected by the Federal Confidentiality of Alcohol and Drug Abuse Patient Records regulations: The Federal rules restrict any use of the information to criminally investigate or prosecute any alcohol or drug abuse patient.[facility] HospitalIn the event this information is protected by the Federal Confidentiality of Alcohol and Drug Abuse Patient Records regulations: The Federal rules restrict any use of the information to criminally investigate or prosecute any alcohol or drug abuse patient.[facility] Reason for Visit (unrecogniz ed section [...] BE BASED ON THE PRIMARY CLINICAL RECORDS. [facility]. provides no warranty or guarantee of the accuracy or completeness of information in this document.
[2023-10-16 13:06] LABS: Bilirubin Urine NEGATIVE (NEGATIVE); Blood Urine TRACE-I (NEGATIVE); Clarity Urine CLEAR (CLEAR); Color Urine LT. YELLOW (YELLOW); Glucose Urine UA NEGATIVE (NEGATIVE); Ketones Urine NEGATIVE (NEGATIVE); Leukocyte Esterase Urine SMALL (NEGATIVE); Nitrite Urine NEGATIVE (NEGATIVE); Protein Urine NEGATIVE (NEG/TRACE); Specific Gravity Urine <=1.005 (1.005-1.025); Urobilinogen Urine 0.2 EU/dL (0.2-1.0); pH Urine 6.5 (5.0-9.0)
[2023-10-16 15:05] LABS: Digoxin 0.4 ng/mL (0.9-2.0)
== END 2023-10-16 12:44 | disposition home or self-care (01) ==
LOC: LAB 12:45
PROVIDERS: PCP Family Medicine
DX: N30.00 Acute cystitis without hematuria (principal); I48.19 Other persistent atrial fibrillation; I50.20 Unspecified systolic (congestive) heart failure
CPT/HCPCS: 36415; 80162; 81003; 83735

== ENCOUNTER 2023-10-18 08:50 | Outpatient (OUT) | payer MEDICARE, BC, SELFPAY ==
--- OUTSIDE RECORDS SUMMARY | 2023-10-18 08:59 | XMS_ITS | CCD ---
Author Name Unknown Address [address] [place] [address] Organization [facility] Care Team Providers Care Smt Operator Name Role Phone Peggy Nazario Primary Care Physician Micheline Sorto MD Unavailable Taylor Henriquez MD Unavailable Peggy Nazario Primary Care Provider [phone] Peggy Nazario MD Unavailable Peggy Nazario MD Primary Care Provider Alea Harley MD Unavailable [phone] Alea Harley MD Unavailable PEGGY NAZARIO Attending Unavailable PEGGY NAZARIO Attending Unavailable CRUZ COVINGTON Attending Unavailable PEGGY NAZARIO Attending Unavailable PEGGY NAZARIO Attending Unavailable PEGGY NAZARIO Attending Unavailable STEPHAN BOO Attending Unavailable Koby Masterson Attending Unavailable Jeff Cross Attending Unavailable Micheline BROOKS Referring Unavailable Micheline BROOKS Attending Unavailable Micheline BROOKS Attending Unavailable Micheline BROOKS Attending Unavailable Micheline BROOKS Referring Unavailable Armen, Parveen SElise Attending Unavailable Armen, Parveen SElise Attending Unavailable Koby Masterson Attending Unavailable Jeff Cross Attending Unavailable Layton Crawford Attending Unavailable NONE, XXXX Referring Unavailable Taylor HENRIQUEZ Admitting Unavailable Taylor HENRIQUEZ Attending Unavailable Taylor HENRIQUEZ Admitting Unavailable Taylor HENRIQUEZ Consulting Unavailable Taylor HENRIQUEZ Attending Unavailable Taylor HENRIQUEZ Referring Unavailable Taylor HENRIQUEZ Consulting Unavailable Taylor HENRIQUEZ Consulting Unavailable BROOKS, Micheline R Attending Unavailable BROOKS, Micheline R Referring Unavailable BROOKS, Micheline R Admitting Unavailable BROOKS, Micheline R Referring Unavailable BROOKS, Micheline R Admitting Unavailable BROOKS, Micheline R Attending Unavailable NazarioPeggy fernandez D Admitting Unavailable Nazario, Peggy Mcmillan Attending Unavailable Aravind, Peggy Mcmillan Referring Unavailable Nahid SERRATO Attending Unavailable Eb Goff Consulting Unavaila ble DO Noman PATTON Admitting Unavailabl e MD Eb Goff Consulting Unava ilable Eb Goff Consulting Unavaila ble [facility] [facility], XXXX Consulting Unavailable KASI BLANCO Attending Unavailable NEREYDA ROBINS Attending Unavailable VÍCTOR KC Referring Unavailable ANA RIVAS Attending Unavailable NAAZRIO, PEGGY JAYDE Primary Care Unavailabl e ALEA HARLEY Referring Unavailable NAZARIO, [facility] Primary Care Unavailabl e ALEA HARLEY Referring Unavailable NAZARIO, PEGGY JAYDE Primary Care Unavailabl e RAPHAEL GOLDSMITH Attending Unavailable RAPHAEL GOLDSMITH Referring Unavailable SELF Referring Unavailable NAZARIO, [facility] Primary Care Unavailabl e RAPHAEL GOLDSMITH P Attending Unavailable NAZARIO, PETER JAYDE Primary Care Unavailabl e YECENIA GLEZ Admitting Unavailable YECENIA GLEZ Attending Unavailable NAZARIO, PETER JAYDE Primary Care Unavailabl e NITHYA, MICHELINE Referring Unavailable NAZARIO, [facility] Primary Care Unavailabl e NITHYA, MICHELINE Referring Unavailable NAZARIO, PEGGY DONOHUE Primary Care Unavailabl e ALEA HARLEY Attending Unavailable NITHYA, MICHELINE Referring Unavailable NITHYA, MICHELINE Referring Unavailable NAZARIO, PEGGY JAYDE Primary Care Unavailabl e NAZARIO, [facility] JAYDE Primary Care Unavailabl e NITHYA, MICHELINE Referring Unavailable NAZARIO, [facility] JAYDE Primary Care Unavailabl e PRIETO VILLALBA Attending Unavailable NITHYA, MICHELINE Referring Unavailable NAZARIO, [facility] JAYDE Primary Care Unavailabl e NITHYA, MICHELINE Referring Unavailable NITHYA, MICHELINE Attending Unavailable NAZARIO, [facility] Primary Care Unavailabl e ALEA HARLEY Referring Unavailable LE PANIAGUA Attending Unavailable AMINA PETERSEN Admitting Unavailable NAZARIO, [facility] JAYDE Primary Care Unavailabl e Allergies Allergy Classification Reported Allergen(s) Allergy Type Date of Onset Reaction(s) Facility (20 sources) Cephalexin; Translations: [cephalexin] Drug Allergy 06-19-202 3 GI intolerance, Unknown [facility] (20 sources) Egg; Translations: [Eggs] Food allergy Unknown (qualifier value) [facility] (20 sources) Meperidine; Translations: [meperidine] Drug Allergy 0 Syncope (disorder), Other: See Comments [facility] (20 sources) Morphine; Translations: [morphine] Drug Allergy 3 Unknown [facility] (20 sources) Sulfonamides (Antibiotic); Translations: [sulfa drugs] Drug allergy Nausea [facility] (2 sources) Aspirin; Translations: [ASPIRIN] Drug Allergy 0 Other: See Comments [facility] (9 sources) Latex; Translations: [LATEX] Drug Intolerance 3 Rash, Hives [facility] (5 sources) Aluminum aspirin Drug Allergy 0 [facility] (6 sources) Amoxicillin; Translations: [AMOXICILLIN] Drug Allergy 3 Diarrhea [facility] (6 sources) Erythromycin; Translations: [ERYTHROMYCIN] Drug Allergy 3 Unknown [facility] (5 sources) Latex Propensity to adverse reactions 3 Hives, Rash [facility] (5 sources) Meperidine Drug Allergy 3 Unknown [facility] (14 sources) Sulfonamides (Antibiotic) Drug Allergy 3 GI intolerance, Intolerance [facility] (6 sources) WHEAT DEXTRIN; Translations: [WHEAT BRAN] Drug Allergy 3 [facility] (5 sources) WHEAT DEXTRIN Drug Allergy 3 [facility] (5 sources) Eggs Or Egg-Derived Products Drug Allergy 3 [facility] (10 sources) egg extract; Translations: [EGG] Drug Allergy 4 Intolerance, GI Upset [facility] (1 source) Meperidine; Translations: [Demerol HCl] Drug Allergy [facility] (2 sources) Sulfonamides (Antibiotic); Translations: [SULFA (SULFONAMIDE ANTIBIOTICS)] Propensity to adverse reactions to drug (disorder) 3 [facility] (1 source) valsartan; Translations: [VALSARTAN] Drug Allergy 4 [facility] (1 source) EGG DERIVED; Translations: [EGG DERIVED] Propensity to adverse reactions to drug (disorder) 3 [facility] (1 source) ALLERGIES NOT ON FILE; Translations: [ALLERGIES NOT ON FILE] Propensity to adverse reactions (disorder) [facility] Medications Current Medications Medication Drug Class(es) Dates Sig (Normalized) Sig (Original) amoxicillin 500 mg / clavulanate 125 mg oral tablet (2 sources) Penicillin-class Antibacterial Start: 07-19-2023 End: 08-02-2023 Augmentin 500 mg-125 mg Tab 1 tab(s), Oral, q24hr for 14 day(s), 14 tab(s), Refill(s) 0, [facility] [id number], 165, cm, 07/19/23 15:21:00 EST, Height/Length Dosing, 54.4, kg, 07/19/23 15:21:00 EST, Weight Dosing Start Date: 07/19/23 Stop Date: 08/02/23 Status: Ordered aspirin 81 mg delayed release oral tablet (8 sources) Platelet Aggregation Inhibitor, Nonsteroidal Anti-inflammatory Drug Start: 07-05-2023 take 1 tablet by mouth once daily aspirin 81 mg Oral EC Tab 81 mg = 1 tab(s), Oral, Daily, # 60 tab(s), Refills(s) 0, Pharmacy: [facility] #[id number], 165, cm, 07/02/23 21:30:00 EST, Height/Length Dosing, 55.7, kg, 07/02/23 21:30:00 EST, Weight Dosing Start Date: 07/05/23 Status: Ordered atorvastatin 40 mg oral tablet (20 sources) HMG-CoA Reductase Inhibitor Start: 07-05-2023 End: 08-25-2024 take 1 tablet by mouth once daily at bedtime atorvastatin (LIPITOR) 40 mg tablet Take 1 tablet by mouth daily at bedtime. 180 tablet 1 08/31/2023 08/25/2024 Active Comment on above: Take 1 tablet by antonio th daily at bedtime. dicyclomine hydrochloride 10 mg oral capsule (1 source) Anticholinergic Start: 07-01-2023 End: 07-08-2023 take 1 capsule by mouth four times daily Bentyl 10 mg Cap 10 mg = 1 cap(s), Oral, QID, X 7 day(s), # 14 cap(s), Refills(s) 0, Pharmacy: [id number], 165, cm, 06/30/23 19:37:00 EST, Height/Length Dosing, 55.7, kg, 06/30/23 19:37:00 EST, Weight Dosing Start Date: 07/01/23 Stop Date: 07/08/23 Status: Ordered digoxin 0.125 mg oral tablet (20 sources) Cardiac Glycoside Start: 09-06-2023 End: 12-05-2023 take 0.5 tablet by mouth in the [...] Daily, # 60 tab(s), Refills(s) 0, Pharmacy: [facility] #[id number], 165, cm, 07/02/23 21:30:00 EST, Height/Length Dosing, [...] day (at bedtime), 42.5 gm, Refill(s) 6, [facility], 165.1, cm, 01/28/23 21:34:00 EDT, Height/Length Dosing, 54.5, kg, 01/28/23 21:34:00 EDT, Weight Dosing Start Date: 03/20/23 Status: Ordered Start: 03-03-2022 estradiol 0.1 mg/g vaginal cream 1 gm, Vaginal, MonFri, # 42.5 gm, Refills(s) 6, Pharmacy: [facility], 165, cm, 03/03/22 10:04:00 EDT, Height/Length Dosing, 54, kg, 03/03/22 10:04:00 EDT, Weight Dosing Start Date: 03/03/22 Status: Ordered Start: 02-26-2021 estradiol 0.1 mg/g vaginal cream 1 gm, Vaginal, MonFri, # 42.5 gm, Refills(s) 6, Pharmacy: [facility], 165, cm, 02/23/21 13:24:00 EDT, Height/Length Dosing, 54, kg, 02/23/21 13:24:00 EDT, Weight Dosing Start Date: 02/26/21 Status: Ordered Start: 10-22-2012 estradiol 0.01 % (0.1 mg/g) vaginal cream Use a pea sized drop on finger, once every other day 1 Tube 10/22/2012 Active Comment on above: Use a pea sized drop on finger, once every other day estradiol 0.1 mg/g vaginal cream (9 sources) Start: 03-03-2022 estradiol 0.1 mg/g vaginal cream 1 gm, Vaginal, MonFri, # 42.5 gm, Refills(s) 6, Pharmacy: [facility], 165, cm, 03/03/22 10:04:00 EDT, Height/Length Dosing, 54, kg, 03/03/22 10:04:00 EDT, Weight Dosing Start Date: 03/03/22 Status: Ordered Start: 02-26-2021 estradiol 0.1 mg/g vaginal cream 1 gm, Vaginal, MonFri, # 42.5 gm, Refills(s) 6, Pharmacy: [facility], 165, cm, 02/23/21 13:24:00 EDT, Height/Length Dosing, 54, kg, 02/23/21 13:24:00 EDT, Weight Dosing Start Date: 02/26/21 Status: Ordered furosemide 40 mg oral tablet (8 sources) Loop Diuretic Start: 07-05-2023 take 1 tablet by mouth once daily furosemide 40 mg Tab 40 mg = 1 tab(s), Oral, Daily, # 60 tab(s), Refills(s) 0, Pharmacy: [facility] #[id number], 165, cm, 07/02/23 21:30:00 EST, Height/Length Dosing, 55.7, kg, 07/02/23 21:30:00 EST, Weight Dosing Start Date: 07/05/23 Status: Ordered lisinopril 10 mg oral tablet (6 sources) Angiotensin Converting Enzyme Inhibitor Start: 09-26-2023 [...] Start: 08-03-2011 take 1 tablet by antonio th three times daily as needed for anxiety [...] (8 sources) Angiotensin 2 Receptor Yolette Start: take 1 tablet by mouth once daily losartan 25 mg Tab 25 mg = 1 tab(s), Oral, Daily, # 60 tab(s), Refills(s) 0, Pharmacy: [facility] #[id number], 165, cm, 07/02/23 21:30:00 EST, Height/Length Dosing, [...] tablet (5 sources) Serotonin-3 Receptor Antagonist Start: take 1 tablet by mouth every eight hours as needed ondansetron ODT (Zofran-ODT) 4 MG disintegrating tablet Take 4 mg by mouth every 8 (eight) hours if needed. 0 07/01/2023 Active pantoprazole 40 mg delayed release oral tablet (6 sources) Proton Pump Inhibitor Start: End: take 1 tablet by mouth once daily pantoprazole DR (PROTONIX) 40 mg tablet Indications: Non-rheumatic mitral regurgitation , Persistent atrial fibrillation (HCC) , Non-ischemic cardiomyopathy (HCC) , Chronic HFrEF (heart failure with reduced ejection fraction) (HCC) Take 1 tablet by mouth once daily. 90 tablet 0 09/26/2023 12/25/2023 Active Comment on above: Take 1 tablet by antonio th once daily. Tobramycin (1 source) Aminoglycoside Antibacterial Start: End: take 1 drop(s) into the eye(s) four times daily tobramycin ophthalmic 0.3% solution 1 drop(s), Eye-Both, QID for 7 day(s), 5 mL, Refill(s) 0, [facility] #[id number], 165, cm, 12/24/21 17:41:00 EDT, Height/Length Dosing, 54, kg, 12/24/21 17:41:00 EDT, Weight Dosing Start Date: 12/24/21 Stop Date: 12/31/21 Status: Ordered Zofran ODT 4 mg Tab-Dis (9 sources) Start: take 1 tablet by mouth every eight hours Zofran ODT 4 mg Tab-Dis 4 mg = 1 tab(s), Oral, q8hr, # 12 tab(s), Refills(s) 0, Pharmacy: [facility] #[id number], 165, cm, 06/30/23 19:37:00 EST, Height/Length Dosing, 55.7, kg, 06/30/23 19:37:00 EST, Weight Dosing Start Date: 07/01/23 Status: Ordered Completed/Discontinued Medications Medication Drug Class(es) Dates Sig (Normalized) Sig (Original) apixaban 5 mg oral tablet (20 sources) Factor Xa Inhibitor Start: 07-11-2023 take 1 tablet by mouth twice daily apixaban (ELIQUIS) 5 mg tab(s) Take 1 tablet by mouth two times a day. 120 tablet 1 08/31/2023 Active Start: 07-11-2023 take 1 tablet by antonio th twice daily Eliquis 5 mg oral tablet 5 mg = 1 tab(s), Oral, BID, # 60 tab(s), Refills(s) 0, Pharmacy: [facility] #[id number], 165, cm, 07/02/23 21:30:00 EST, Height/Length Dosing, 55.7, kg, 07/02/23 21:30:00 EST, Weight Dosing Start Date: 07/11/23 Status: Ordered Start: 07-11-2023 take 1 tablet by antonio th twice daily Eliquis 5 mg oral tablet 5 mg = 1 tab(s), Oral, BID, # 60 tab(s), Refills(s) 0, Pharmacy: [facility] #[id number], 165, cm, 07/02/23 21:30:00 EST, Height/Length Dosing, 55.7, kg, 07/02/23 21:30:00 EST, Weight Dosing Start Date: 07/11/23 Status: Ordered Start: 07-11-2023 take 1 tablet by antonio th twice daily Eliquis 5 mg oral tablet 5 mg = 1 tab(s), Oral, BID, # 60 tab(s), Refills(s) 0, [facility] #[id number], 165, cm, 07/02/23 21:30:00 EST, Height/Length Dosing, 55.7, kg, 07/02/23 21:30:00 EST, Weight Dosing Start Date: 07/11/23 Status: Ordered Comment on above: Take 1 tablet by antonio th two times a day. carvedilol 12.5 mg oral tablet (20 sources) alpha-Adrenergic Yolette, beta-Adrenergic Yolette Start: 08-31-2023 take 1 tablet by mouth twice daily at mealtime carvedilol (COREG) 12.5 mg tablet Take 1 tablet by mouth two times a day with meals. 180 tablet 1 08/31/2023 Active Start: 07-05-2023 End: 10-19-2023 take 1 tablet by mouth twice daily carvedilol 3.125 mg Tab 3.125 mg = 1 tab(s), Oral, BID, X 14 day(s), # 28 tab(s), Refills(s) 0, Pharmacy: [id number], 165, cm, 10/05/23 18:07:00 EST, Height/Length Dosing, 50.3, kg, 10/05/23 18:07:00 EST, Weight Dosing Start Date: 10/05/23 Stop Date: 10/19/23 Status: Ordered Comment on above: Take 1 tablet by antonio th two times a day with meals. Take 12.5 mg by mout h. ciprofloxacin 500 mg oral tablet (7 sources) Quinolone Antimicrobial Start: 04-26-2023 Cipro 500 mg Tab 500 mg = 1 tab(s), Oral, As Directed, Patient to take 1 tab the day before procedure and the 2nd tab the day of procedure once completed, # 2 tab(s), Refills(s) 0, [id number], 165, cm, 04/26/23 15:23:00 EDT, Height/Length Dosing, 54.7, kg, 04/26/23 15:23:00 EDT, Weight Dosing Start Date: 04/26/23 Status: Ordered Start: 10-14-2022 take 1 tablet by antonio once daily Cipro 500 mg Tab 500 mg = 1 tab(s), Oral, Daily, Take 1 tablet the day before the procedure and 1 tablet after the procedure, # 2 tab(s), Refills(s) 0, Pharmacy: [facility], 165, cm, 10/03/22 14:34:00 EST, Height/Length Dosing, 54.7, kg, 10/03/22 14:34:00 E... Start Date: 10/14/22 Status: Ordered Start: 03-03-2022 take 1 tablet by [facility] once daily Cipro 500 mg Tab 500 mg = 1 tab(s), Oral, As Directed, Take 1 tablet day before procedure, and then 1 tablet day of procedure after procedure, # 2 tab(s), Refills(s) 0, Pharmacy: [facility], 165, cm, 03/03/22 [...] Comment on above: Take 2 capsules by out one time only for 1 dose. Take [...] Date: 07/07/23 Stop Date: 07/07/23 Status: Completed nitrofurantoin, macrocrystals 25 mg / nitrofurantoin, monohydrate 75 mg oral capsule (1 source) Nitrofuran Antibacterial Start: 10-15-2023 End: 10-16-2023 nitrofurantoin monohydrate and macrocrystal 100 mg cap(s) (MACROBID) polyethylene glycol 3350 53353 mg powder for oral solution (17 sources) Osmotic Laxative Start: 08-31-2023 polyethylene glycol 3350 17 gram/dose powder Take 17 g by mouth once daily as needed. Dissolve dose in 4 - 8 ounces of liquid and take as directed. 510 g 1 08/31/2023 Active Start: 07-05-2023 take 17 g by mouth once daily polyethylene glycol 3350 17 gram packet 17 gm, Oral, Daily, # 255 gm, Refills(s) 0, Pharmacy: [facility] #[id number], 165, cm, 07/02/23 21:30:00 EST, Height/Length Dosing, 55.7, kg, 07/02/23 21:30:00 EST, Weight Dosing Start Date: 07/05/23 Status: Ordered Comment on above: Take 17 g by mouth o nce daily as needed. Dissolve dose in 4 - 8 ounces of liquid and take as directed. spironolactone 25 mg oral tablet (14 sources) Aldosterone Antagonist Start: 08-31-19 End: 09-05-19 [...] Comment on above: Take 1 capsule by [facility] daily at bedtime. valsartan 80 mg oral tablet (6 sources) Angiotensin 2 Receptor Yolette Start: 08-31-19 End: 09-26-19 24 take 1 tablet by mouth once daily valsartan (DIOVAN) 80 mg tablet Take 1 tablet by mouth once daily. 90 tablet 1 08/31/2023 09/26/2023 Discontinued (Course of therapy completed) Comment on above: Take 1 tablet by antonio th once daily. Problems Active Problems Problem Classification Problem Date Documented Da te Episodic/Chronic Abdominal pain (20 sources) Suprapubic pain; Translations: [Abdominal pain] Onset: 3 01-22-2020 Episodic Adjustment disorders (9 sources) Adjustment disorder with mixed anxiety and depressed mood; Translations: [Adjustment disorder with mixed anxiety and depressed mood] Onset: 4 08-29-2023 Chronic Anxiety disorders (20 sources) Anxiety; Translations: [Anxiety disorder] Onset: 3 01-23-2019 Chronic Cardiac dysrhythmias (15 sources) Unspecified atrial fibrillation; Translations: [Persistent atrial fibrillation] Onset: 3 Chronic Coagulation and hemorrhagic disorders (2 sources) Thrombophilia; Translations: [Other thrombophilia] 09-26-2023 Chronic Conditions associated with dizziness or vertigo (2 sources) Dizziness and giddiness; Translations: [Dizziness and giddiness] Onset: 4 Episodic Congestive heart failure; nonhypertensive (7 sources) Acute systolic heart failure; Translations: [Acute systolic (congestive) heart failure] Onset: 3 Chronic Coronary atherosclerosis and other heart disease (3 sources) Coronary atherosclerosis; Translations: [Atherosclerotic heart disease of [place] coronary artery without angina pectoris] Onset: 3 Chronic E Codes: Adverse effects of medical drugs (1 source) Adverse reaction to biological substance; Translations: [Adverse effect of unspecified drugs, medicaments and biological substances, initial encounter] Onset: 4 Episodic Esophageal disorders (20 sources) Gastroesophageal reflux disease; Translations: [Gastroesophageal reflux disease without esophagitis] Onset: 3 01-30-2014 Chronic Essential hypertension (10 sources) Essential hypertension; Translations: [Essential (primary) hypertension] [...] unspecified] Onset: 3 06-09-2019 Episodic Nutritional deficiencies (12 sources) Deficiency of macronutrients; Translations: [Unspecified severe protein-calorie malnutrition] Onset: 4 08-30-2023 Chronic Open wounds of head; neck; and trunk (20 sources) Superficial laceration of face; Translations: [Laceration without foreign body of other part of head, initial encounter] Onset: 3 01-27-2018 Episodic Other aftercare (1 source) Long-term current use of drug therapy; Translations: [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 therapy] Onset: 3 Episodic Other aftercare (1 source) Long-term 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; Translations: [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] 09-26-2023 Episodic Other [...] initial encounter] Onset: 3 01-27-2018 Episodic Other lower respiratory disease (2 sources) Shortness of breath; Translations: [Shortness of breath] Onset: 4 Episodic Other nervous system disorders (1 source) [...] caused by tuberculosis or sexually transmitted disease) (14 sources) Cardiomyopathy; Translations: [Other cardiomyopathies] Onset: 4 [...] sources) Finding of sensation of bladder 08-24-2020 Unclassified (2 sources) Other persistent atrial fibrillation; Translations: [Other persistent atrial fibrillation] Onset: 4 Urinary tract infections (2 sources) Acute cystitis without hematuria; Translations: [Acute cystitis without hematuria] Onset: 4 Episodic Varicose veins of lower extremity (2 sources) Pain due to varicose veins of lower extremity; Translations: [Varicose veins of unspecified lower extremity with pain] Onset: 2 Episodic Viral infection (1 source) Viral disease; Translations: [Viral infection, unspecified] Episodic Past or Other Problems Problem Classification Problem Date Documented Da te Episodic/Chronic Intestinal obstruction without hernia (15 sources) Intestinal obstruction; Translations: [Unspecified intestinal obstruction, [...] Test Name Value Interpretation Reference Range Facility CNOVon 10-16-2023 CNOV Office Visit (UROSMN ) ELIFJERONIMOHARJIT Eliseo ([id number]) 1950 F Date Time Provider Department 10/16/23 8:00 AM RAPHAEL GOLDSMITH UROSMN During your visit today, we recorded the following information about you: Lia Ramirez CT 10/16/2023 8:32 AM Signed Actual procedure/procedure scheduled: Yes Performing provider/scheduled provider: Yes Patient was roomed in: Q9- 07 First Line Supervisor offered:Patient declines Patient arrived in the room at: 0738 Patient ready for procedure: 0755 The procedure started at ( Time Only): 0819 The procedure ended at: 0826 Was the procedure delayed: Yes: Provider late: Provider off unit The patient left the procedure room at: 0832 DAWSON Farr PRE PROCEDURE ASSESSMENT- Cysto Procedure Indication: Cystoscopy Latex Allergy: No Allergies reviewed and updated. Yes Pre-Procedure Vital Signs: BP: 123/58 Pulse: 81 Heart valve replacement: No Joint replacement: No Back Office UA otained: yes PROCEDURE PREP-Cysto Patient ID with two(2)identifiers verified by: DAWSON Farr Pre-Procedure Antibiotics: None taken at home nor prior to procedure Patient Prep: Betadine Scrub to perineum and placement of Sterile Drape. COMPLETED Anesthetic Given:Administered by MD - see Procedure Physician Note. DAWSON Farr UNIVERSAL PROTOCOL / SAFETY CHECKLIST Procedure to be performed: Cystoscopy Sign in Communication: Completed Time Out: Team Confirms the Correct Patient, Correct Procedure, Correct Site and Site Marking, Correct Position (if applicable). Dr. Goldsmith did dilate pt urethra with female sounds Sign Out Discussion: Completed DAWSON Farr POST PROCEDURE NURSE ASSESSMENT Present along with physician during procedure exam. DAWSON Farr Instruction sheet given and reviewed and patient verbalizes understanding: yes Post Procedure Antibiotic: As Prescribed Current pain intensity is 0 on a 0-10 pain scale. DAWSON Farr AMBULATORY PATIENT EDUCATION THE FOLLOWING WAS EVALUATED Motivation To Learn: Interested Family/Significant Other Support: Unable to assess - Family not present Cognitive Ability: Alert/Oriented Method of Instruction: Individual instruction Written instruction - handouts The Following Influencing Factors Were Barriers To This Education Session: None The Following Physical Limitations Were Barriers To This Education Session: None Instruction Provided To: Patient Cabin Agent Present: no Discipline: Nursing Learning Topic: SURVIVAL SKILLS: Symptom Management Patient Evaluation: Verbalizes understanding: Yes Supplemental Material Given: Written Material Instructed By DAWSON Farr In Department Urology . Raphael Goldsmith MD 10/16/2023 11:20 AM Signed 73 year old with prior history of urinary symptoms. Incomplete emptying, intermittency, straining. Had urethral dilation elsewhere which helped. Wished to have another performed due to it helping the symptoms Pedro'S ROB NOTE / UNIVERSAL PROTOCOL / SAFETY CHECKLIST Sign In History and Physical Exam reviewed and is unchanged. Primary Diagnosis: Bladder Outlet Obstruction Sign in Communication: Completed Time Out: Immediately prior to procedure, Team Confirms the Correct Patient, Correct Procedure; Cystoscopy and urethral dilation, Correct Site and Site Marking, Correct Position (if applicable). Sign Out: Sign Out Discussion: Completed Antibiotic(s) given immediately prior to procedure: macrobid Details of Procedure: The patient was positioned in the lithotomy position and prepped in standard sterile fashion. A flexible cystoscope was introduced after lidocaine gel was given. The scope passed through the urethra atraumatically. There was mild scarring of the meatus but no resistance to passage. The bladder was surveyed and normal in appearance. No masses or lesions. Clear efflux from both orifices which were orthotopic. Retroflexion revealed no abnormality. The urethra was then visualized with no ostia or lesions. We then sequentially dilated the urethra with the female sounds from 16 Fr to 26 Fr without issue. The procedure was then terminated. 73 year old with urinary hesitancy, intermittent stream, incomplete emptying -follow-up in 6 months to reassess symptoms Juventino Javier MD FPMRS Fellow Attending Note I evaluated the patient and personally participated in the mansfield components. I agree with the resident's findings and plan as documented and have discussed the case and management of the patient's care with the resident. @POCVISITLEDY@ Signature: Raphael Goldsmith MD Date: October 16, 2023 Time: 11:[address] 10/16/2023 11:20 AM Signed UNIVERSAL PROTOCOL / SAFETY CHECKLIST Procedure to be Performed: cysto Sign In: A Moment of CARE was completed. Personnel directly involved with the procedure wore the appr (more content not included)... Normal [facility] CNPNon 10-16-2023 CNPN Telephone (CARCMN) HARJIT ASENCIO I ([id number]) 1950 F Date Time Provider Department 10/16/23 ALEA HARLEY CARCMN During your visit today, we recorded the following information about you: Junito Mendes 10/16/2023 4:06 PM Signed October 16, 2023 Patient Contact Number: [phone] Patient last seen within the last year: Yes Date of last office visit: 09/26/2023 Reason For Call: Scheduling calling on behalf of pt; pt canceled all future appts, states she no longer wants to be seen here because she does not like the valsartan he placed her on; had ED visit yesterday Physician: Alea Harley MD Patient was informed that non-urgent calls may be returned within the next three business days. Yes Junito Mendes Allergies As of Date: 10/16/2023 Noted Allergy Reaction CEPHALEXIN 01/30/2023 16 - Unknown DEMORAL (MEPERIDINE) 05/14/2010 14 - Other: See Comments Comments: Patient does not know if she is allergic but know she is not suppose to take it. EGG 08/29/2023 5 - Intolerance 8 - GI Upset Comments: Per patient. MORPHINE 04/12/2023 16 - Unknown Comments: Other Reaction(s): Unknown cause SULFA (SULFONAMIDE ANTIBIOTICS) 07/25/2023 5 - Intolerance Date Reviewed: 10/16/2023 Reviewed by: Raphael Goldsmith MD - Fully Assessed Reason for Visit: Patient Update [1234] Prescriptions as of 10/16/2023 - pantoprazole DR (PROTONIX) 40 mg tablet [...] for anxiety. Problem List As Of Date 10/16/2023 Noted Resolved INTESTINAL OBSTRUCT NOS [K56.609] 03/13/2009 [...] 08/30/2023 Encounter Status:Closed by JUNITO MENDES on 10/16/[address] [facility] Office Visiton 10-16-2023 Follow-up visit [id number] ElifHarjit Eliseo 1950 F Date Provider Department Center 10/16/2023 Mulu-NEREYDA ROBINS [facility] Family History Problem Relation Age of Onset Coronary artery disease Mother Diabetes Mother Coronary artery disease Father Family Status - Relation Status Age at Mother Father Level of Service:[address] [place] OFFICE/OUTPATIENT [facility] 60 MINUTES Normal [facility] UA DIP, URINE (POC)on 2023 BILIRUBIN UA (POCT) Negative Negative [facility] CLARITY UA (POCT) Clear [facility] COLOR UA (POCT) Yellow [facility] GLUCOSE UA (POCT) Negative Negative mg/dL [facility] Hemoglobin Ql (U) Trace-lysed Abnormal Negative [facility] KETONE UA (POCT) Negative Negative mg/dL [facility] LEUKOCYTES UA (POCT) Large Abnormal Negative [facility]PO[facility]) Negative Negative [facility] PH UA (POCT) 6.0 4.5 - 8.0 [facility] Protein Ql (U) Negative Negative mg/dL [facility] SPECIFIC GRAVITY UA (POCT) 1.010 1.005 - 1.030 [facility] UROBILINOGEN UA (POCT) 0.2 E.U./dL Giulia l E.U./dL [facility] 36on 10-11-2023 36 Patient is scheduled for testing at [facility]. Testing is scheduled for 10/18/23. 8:45a- PFT 10a- Carotid 1pm- TTE. Normal [facility] 37on 10-10-2023 37 We made the followin g medications changes today: -start taking digoxin at night, instead of morning -take spironolactone, 1/2 pill twice a day, instead of one pill once a day -do not take any of your medications at bedtime We ordered the following test today: -echocardiogram: this is to check your heart function -carotid ultrasound: screening test needed to have heart procedure -pulmonary function test: screening test needed to have heart procedure These test will need to be scheduled at [facility]. Please call them to schedule as soon as possible. We ordered blood work for you. You do not have to fast. Please have this done this week. You can have it done at [facility]. You have an appointment to see the planner, at [facility]. Dr. Robins. [phone]. He will look at your medications and discuss your heart valve. Normal [facility] Discharge Instructionson Discharge Instructions [id number]# 1.00TIFF Normal [facility] ED Note-Physicianon 10-06-19 ED Note-Physician [facility] Comment on above: Result Comment: Elec tronically Signed By: Nica Knox PA-C\.br\Date and Time Signed: 10/05/23 21:57 EST\.br\Electronically Co-Signed By: Koby Masterson DO\.br\Date and Time Co-Signed: 10/06/23 00:54 EST Consent for Treatmenton 09-15 Consent for Treatment [id number]#1 .00TIFF Normal [facility] ED Clinical Summaryon 2023 ED Clinical Summary Normal [facility] ED Patient Education Noteon 10-05-2023 ED Patient Education Note Normal [facility] ED Patient Summaryon 024 ED Patient Summary Normal [facility] CNPN Telephone (CARCMN) HARJIT ASENCIO I ([id number]) 1950 F Date Time Provider Department 10/02/23 ALEA HARLEY During your visit today, we recorded the following information about you: Junito Mendes 10/02/2023 9:41 AM Signed October 02, 2023 Patient Contact Number: [phone] Patient last seen within the last year: Yes Date of last office visit: 09/26/2023 Reason For Call: Test Results; pt requesting to go over 09/26 labs Physician: Alea Harley MD Patient was informed that non-urgent calls may be returned within the next three business days. Yes Kim Whitten, ROCÍO 10/03/2023 1:[address] Harley, kidney function looks good. Things are stable. Heart failure peptide still elevated but working on getting on proper regimen. Stay the course. Harriet Albarado RN 10/06/2023 11:31 AM Signed I spoke with patient to review labs. Patient states that she was in the ED at [facility] for stomach pain and dizziness. She states that her carvedilol down to previous dose, chart review shows carvedilol 3.125mg. I will updated Adonay Rivas and Dr Harley. ROCÍO Ruiz Alesha, APRN.CNP 10/06/2023 2:59 PM Signed Noted. Will address at upcoming scheduled appointment. Ana Rivas APRN.TALIB October 06, 2023 2:59 PM Allergies As [...] Status:Closed by JUNITO MENDES on 10/02/[address] [facility] Echocardiographyon 4 Echocardiography [id number]#1 .00TIFF Normal [facility] Outside Cardiovascularon Outside Cardiovascular [id number] [id number]#1 .00TIFF Normal [facility] Outside Cardiovascular [id number] 4020 [id number]#1 .00TIFF Normal [facility] Outside Cardiovascular [id number] [id number]#1 .00TIFF Normal [facility] Outside Operativeon 09-27-19 24 Outside Operative [id number]#1 .00TIFF Normal [facility] Outside Operative [id number]#1 .00TIFF Normal [facility] Outside Radiologyon 09-27-19 24 Outside Radiology [id number]#1 .00TIFF Normal [facility] Outside Radiology [id number]#1 .00TIFF Normal [facility] CBC panel Auto (Bld)on 09-26 Erythrocyte distribution width (RBC) [Ratio] 13.2 % Normal 11.5-15.[address] [facility] Comment on above: Order Comment: Speci men Type: BLOOD SPECIMENOrdering Facility: [facility] Address: [address] [place] [address] Performed By: #### 5 8410-2 ####[facility] LABCLIA [id number] [place] [address] [place] Hematocrit (Bld) [Volume fraction] 38.1 % Normal 36.0-46.[address] [facility] Comment on above: Order Comment: Speci men Type: BLOOD SPECIMENOrdering Facility: [facility] Address: [address] [place] [address] Performed By: #### 5 8410-2 ####[facility] LABCLIA [id number] [place] [address] [place] Hemoglobin (Bld) [Mass/Vol] 12.2 g/dL Normal 11.5-15.[address] [facility] Comment on above: Order Comment: Speci men Type: BLOOD SPECIMENOrdering Facility: [facility] Address: [address] [place] [address] Performed By: #### 5 8410-2 ####[facility] [id number] [place] [address] [place] MCH (RBC) [Entitic mass] 29.5 pg Normal 26.0-34.[address] [facility] Comment on above: Order Comment: Speci men Type: BLOOD SPECIMENOrdering Facility: [facility] Address: [address] [place] [address] Performed By: #### 5 8410-2 ####[facility] [id number] [place] [address] [place] MCHC (RBC) [Mass/Vol] 32.0 g/dL Normal 30.5-36.0 [facility] Comment on above: Order Comment: Speci men Type: BLOOD SPECIMENOrdering Facility: [facility] Address: [address] [place] [address] Performed By: #### 5 8410-2 ####[facility] [id number] [place] [address] [place] MCV (RBC) [Entitic vol] 92.0 fL Normal 80.0-100.[address] [facility] Comment on above: Order Comment: Speci men Type: BLOOD SPECIMENOrdering Facility: [facility] Address: [address] [place] [address] Performed By: #### 5 8410-2 ####[facility]GIFF[facility] [id number] [place] [address] [place] Nucleated RBC (Bld) [#/Vol] 10*3/uL Normal <0.[address] [facility] Comment on above: Order Comment: Speci men Type: BLOOD SPECIMENOrdering Facility: [facility] Address: [address] [place] [address] Performed By: #### 5 8410-2 ####[facility] LABIA [id number] [place] [address] [place] Platelet mean volume (Bld) [Entitic vol] 10.5 fL Normal 9.0-12.[address] [facility] Comment on above: Order Comment: Speci men Type: BLOOD SPECIMENOrdering Facility: [facility] Address: [address] [place] [address] Performed By: #### 5 8410-2 ####[facility] LABIA [id number] [place] [address] [place] Platelets (Bld) [#/Vol] 195 10*3/uL Normal 150-[address] [facility] Comment on above: Order Comment: Speci men Type: BLOOD SPECIMENOrdering Facility: [facility] Address: [address] [place] [address] Performed By: #### 5 8410-2 ####[facility] LABIA [id number] [place] [address] [place] RBC (Bld) [#/Vol] 4.14 10*6/uL Normal 3.90-5.20 [facility] Comment on above: Order Comment: Speci men Type: BLOOD SPECIMENOrdering Facility: [facility] Address: [address] [place] [address] Performed By: #### 5 8410-2 ####[facility] LABIA [id number] [place] [address] [place] WBC (Bld) [#/Vol] 6.03 10*3/uL Normal 3.70-11.00 [facility] Comment on above: Order Comment: Speci men Type: BLOOD SPECIMENOrdering Facility: [facility] Address: [address] [place], [place] [address] [id number] Performed By: #### 5 8410-2 ####[facility] LABCLIA [id number] [facility] [place] [address] [place] [facility] CBC PNL BLD AUTOon 09-26 [facility] NRBC # BLD AUTO <0.01 NINF [facility] PLATELET # BLD AUTO 195 [facility] PMV BLD AUTO 10.5 fL 9.0 - 12.7 fL [facility] WBC # BLD AUTO 6.03 [facility] Erythrocyte distribution width (RBC) [Ratio] 13.2 % 11.5 - 15.0 % [facility] Hematocrit (Bld) [Volume fraction] 38.1 % 36.0 - 46.0 % [facility] Hemoglobin (Bld) [Mass/Vol] 12.2 g/dL 11.5 - 15.5 g/dL [facility] MCH (RBC) [Entitic mass] 29.5 pg 26.0 - 34.0 pg [facility] MCHC (RBC) [Mass/Vol] 32.0 g/dL 30.5 - 36.0 g/dL [facility] MCV (RBC) [Entitic vol] 92.0 fL 80.0 - 100.0 fL [facility] RBC (Bld) [#/Vol] 4.14 10*6/uL 3.90 - 5.2 0 m/uL [facility] Specimen Type: BLOOD SPECIMEN [facility] Address: [address] [place] [address] Original Ordering Provider: ALEA GUZMAN [facility] CNOVon 09-26-2023 CNOV Office Visit (UROLMN ) HARJIT ASENCIO I ([id number]) 1950 F Date Time Provider Department 2/13/24 2:40 PM RAPHAEL GOLDSMITH During your visit today, we recorded the following information about you: Raphael Goldsmith MD 09/26/2023 4:[address] [facility] [...] notified. CARISSA Ferrell Referring Provider: RAPHAEL GOLDSMITH [[id number]] Allergies As of Date: 09/26/2023 Noted Allergy [...] Severe protein-calorie malnutrition (HCC) [E43] Order(s):CYSTO.PANEND O [87502VPH] Order #: [id number] Prescriptions as of 09/26/2023 - pantoprazole DR (PROTONIX) 40 mg tablet Take 1 tablet by mouth once daily. - lisinopril (ZESTRIL) 10 mg tablet Take 0.5 tablets by mouth once daily. - carvedilol (COREG) 12.5 mg tablet Take 12.5 mg by mouth. - apixaban (ELIQUIS) 5 mg tab(s) Take 1 tablet by (more content not included)... Normal [facility] CNOV Office Visit (CARCMN ) HARJIT ASENCIO I ([id number]) 1950 F Date Time Provider Department 09/26/23 9:00 AM ANA RIVAS CARCHAIM During your visit today, we recorded the following information about you: Pulse Respiration Blood pressure Weight 72/minute 20/minute 118/57 50.8 kg Height 1.651 m Ana Rivas APRN.ROLLER HAND 09/26/2023 10:41 AM Signed [facility] [place] [facility] Department of Cardiovascular Medicine SECTION OF CLINICAL CARDIOLOGY OUTPATIENT VISIT DATE September 26, 2023 OUTPATIENT VISIT TYPE ESTABLISHED PRIMARY CARE PHYSICIAN: Peggy Nazario MD [address] [place] [address] REFERRING PHYSICIAN: Dr. Alea Harley [facility] [address] CHIEF COMPLAINT: Established Patient HISTORY OF PRESENT ILLNESS: Ms. Asencio is a 73 year old female who presents today for a cardiovascular medicine follow-up visit. She is an established patient of Dr. Harley. Patients past medical history is significant for: HFrEF (40-45%) Atrial fibrillation, persistent on apixaban, digoxin and carvedilol S/p HAROON DCCV on 08/28/2023 Heart murmur Tricuspid regurgitation [...] with meals. (more content not included)... Normal [facility] Comprehensive metabolic 2000 panelon 09-26-2023 Albumin [Mass/Vol] 4.2 g/dL Normal 3.9-4.9 [facility] Comment on above: Order Comment: Speci men Type: BLOOD SPECIMEN [facility] Address: [address] [place] [address] Performed By: #### 5 8410-2 #### [facility] CLIA [id number] [facility] [place] [address] [place] ALP [Catalytic activity/Vol] 57 U/L Normal 34-[address] [facility] Comment on above: Order Comment: Speci men Type: BLOOD SPECIMEN [facility] Address: [address] [place] [address] Performed By: #### 5 8410-2 #### [facility] CLIA [id number] [address] [place] [id number] [place] ALT [Catalytic activity/Vol] 36 U/L Normal 7-[address] [facility] Comment on above: Order Comment: Speci men Type: BLOOD SPECIMEN [facility] Address: [address] [place] [address] Performed By: #### 5 8410-2 #### [facility] CLIA [id number] [address] [place] [address] [place] Anion gap [Moles/Vol] 10 mmol/L Normal 9-18 [facility] Comment on above: Order Comment: Speci men Type: BLOOD SPECIMEN [facility] Address: [address] [place] [address] Performed By: #### 5 8410-2 #### [facility] CLIA [id number] [address] [place] [address] [place] AST [Catalytic activity/Vol] 29 U/L Normal 13-[address] [facility] Comment on above: Order Comment: Speci men Type: BLOOD SPECIMEN [facility] Address: [address] [place] [address] Performed By: #### 5 8410-2 #### [facility] CLIA [id number] [address] [place] [address] [place] Bilirubin [Mass/Vol] 0.6 mg/dL Normal 0.2-1.3 [facility] Comment on above: Order Comment: Speci men Type: BLOOD SPECIMEN [facility] Address: [address] [place] [address] Performed By: #### 5 8410-2 #### [facility] CLIA [id number] [address] [place] [id number] [place] Calcium [Mass/Vol] 9.6 mg/dL Normal 8.5-10.2 [facility] Comment on above: Order Comment: Speci men Type: BLOOD SPECIMEN [facility] Address: [address] [place] [address] Performed By: #### 5 8410-2 #### [facility] CLIA [id number] [address] [place] [address] [place] Chloride [Moles/Vol] 100 mmol/L Normal 97-105 [facility] Comment on above: Order Comment: Speci men Type: BLOOD SPECIMEN [facility] Address: [address] [place] [address] Performed By: #### 5 8410-2 #### [facility] CLIA [id number] [address] [place] [address] [place] CO2 [Moles/Vol] 29 mmol/L Normal 22-[address] [facility] Comment on above: Order Comment: Speci men Type: BLOOD SPECIMEN [facility] Address: [address] [place] [address] Performed By: #### 5 8410-2 #### [facility] CLIA [id number] [address] [place] [address] [place] Creatinine [Mass/Vol] 0.82 mg/dL Normal 0.58-0.96 [facility] Comment on above: Order Comment: Speci men Type: BLOOD SPECIMEN [facility] Address: [address] [place] [address] Performed By: #### 5 8410-2 #### [facility] CLIA [id number] [address] [place] [address] [place] Creatinine and Glomerular filtration rate.predicted panel (S/P/Bld) 75 mL/min/1.73m??? Normal >=[address] [facility] Comment on above: Order Comment: Speci men Type: BLOOD SPECIMEN [facility] Address: [address] [place] [address] Result Comment: Shelley mated Glomerular Filtration Rate [...] accurately reflect actual GFR. Performed By: #### 5 8410-2 #### [facility] CLIA [id number] [address] [place] [address] [place] Glucose [Mass/Vol] 129 mg/dL High 74-99 [facility] Comment on above: Order Comment: Nichole becerra Type: BLOOD SPECIMEN [facility] Address: [address] [place] [address] Result Comment: The [place] Diabetes Association (ADA) provides guidance for cutoff [...] Standards of Medical Care in Diabetes 2016, [place] [employer]. Diabetes Care. 2016.39(Suppl 1). Performed By: #### 5 8410-2 #### [facility] CLIA [id number] [facility] [place] [address] [place] Potassium [Moles/Vol] 4.3 mmol/L Normal 3.7-5.1 [facility] Comment on above: Order Comment: Nichole becerra Type: BLOOD SPECIMEN [facility] Address: [address] [place] [id number] Performed By: #### 5 8410-2 #### [facility] CLIA [id number] [address] [place] [id number] [place] Protein [Mass/Vol] 6.4 g/dL Normal 6.3-8.0 [facility] Comment on above: Order Comment: Speci men Type: BLOOD SPECIMEN [facility] Address: [address] [place] [address] Performed By: #### 5 8410-2 #### [facility] CLIA [id number] [address] [place] [address] [place] Sodium [Moles/Vol] 139 mmol/L Normal 136-144 [facility] Comment on above: Order Comment: Speci men Type: BLOOD SPECIMEN [facility] Address: [address] [place] [address] Performed By: #### 5 8410-2 #### [facility] CLIA [id number] [address] [place] [address] [place] Urea nitrogen [Mass/Vol] 15 mg/dL Normal 7-[address] [facility] Comment on above: Order Comment: Speci men Type: BLOOD SPECIMEN [facility] Address: [address] [place] [address] Performed By: #### 5 8410-2 #### [facility] CLIA [id number] [address] [place] [address] [place] ADA32fv 09-26-2023 ECG01 Ventricular Rate : 6 2 BPM Atrial Rate : 62 BPM P-R Interval : 112 ms QRS Duration : 96 ms Q-T Interval : 388 ms QTC Calculation(Bazett) : 393 ms Calculated P [place] : 80 degrees Calculated R [place] : 79 degrees Calculated T [place] : 26 degrees NORMAL SINUS RHYTHM NORMAL ECG Confirmed by MD BERMUDEZ HEBA ([id number]) on 10/03/2023 6:33:53 PM NAME : HARJIT ASENCIO PID : [id number] : 1950 Gender : Female Race : ORD : Procedure Date : Sep 26 2023 09:27:55 Edit Date : Oct 03 2023 18:33:54 Diagnosis: NORMAL SINUS RHYTHM NORMAL ECG Confirmed by MD BERMUDEZ HEBA ([id number]) on 10/03/2023 6:33:53 PM Test Reason : Location : 567 : J24NS Overread By : MD BERMUDEZ HEBA Edited By : MD BERMUEDZ HEBA Referred By : , Acquired by : , Normal [facility] ECG01 Ventricular Rate : 6 7 BPM Atrial Rate : 67 BPM P-R Interval : 114 ms QRS Duration : 96 ms Q-T Interval : 380 ms QTC Calculation(Bazett) : 401 ms Calculated P [place] : 83 degrees Calculated R [place] : 79 degrees Calculated T [place] : 24 degrees SINUS RHYTHM WITH OCCASIONAL PREMATURE VENTRICULAR COMPLEXES INFERIOR T WAVE ABNORMALITY ABNORMAL ECG Confirmed by MD BERMUDEZ HEBA ([id number]) on 10/03/2023 2:34:05 PM NAME : HARJIT ASENCIO PID : [id number] : 1950 Gender : Female Race : ORD : Procedure Date : Sep 26 2023 09:27:28 Edit Date : Oct 03 2023 14:34:07 Diagnosis: SINUS RHYTHM WITH OCCASIONAL PREMATURE VENTRICULAR COMPLEXES INFERIOR T WAVE ABNORMALITY ABNORMAL ECG Confirmed by MD BERMUDEZ HEBA ([id number]) on 10/03/2023 2:34:05 PM Test Reason : Location : 567 : J24NS Overread By : MD BERMUDEZ HEBA Edited By : MD BERMUDEZ HEBA Referred By : , Acquired by : , Lalitha [facility] NT-proBNP [facility] 09-26 Natriuretic peptide.B prohormone N-Terminal [Mass/Vol] 2047 pg/mL High <[address] [facility] Comment on above: Order Comment: Nichole becerra Type: BLOOD SPECIMEN Ordering Facility: [facility] Address: [address] [place] [address] Performed By: #### 5 8410-2 #### [facility] CLIA [id number] [address] [place] [address] [place] URINALYSIS, REFLEX MICROSCOP ICon 09-26-2023 Bacteria LM.HPF (Urine sed) [#/Area] Few Abnormal None Seen [facility] Comment on above: Order Comment: Nichole becerra Type: BLOOD SPECIMEN Ordering Facility: [facility] Address: [address] [place] [address] Performed By: #### 5 8410-2 #### [facility] CLIA [id number] [address] [place] [address] [place] Bilirubin Ql (U) Negative Normal Negative [facility] Comment on above: Order Comment: Speci men Type: BLOOD SPECIMEN Ordering Facility: [facility] Address: [address] [place] [address] Performed By: #### 5 8410-2 #### [facility] CLIA [id number] [address] [place] [address] [place] Clarity (Unsp spec) Cloudy Abnormal Clear [facility] Comment on above: Order Comment: Speci men Type: BLOOD SPECIMEN [facility] Address: [address] [place] [address] Performed By: #### 5 8410-2 #### [facility] CLIA [id number] [address] [place] [address] [place] Color (U) Yellow Normal Yellow [facility] Comment on above: Order Comment: Speci men Type: BLOOD SPECIMEN [facility] Address: [address] [place] [address] Performed By: #### 5 8410-2 #### [facility] CLIA [id number] [address] [place] [address] [place] Epithelial cells LM.HPF (Urine sed) [#/Area] Moderate Normal [facility] Comment on above: Order Comment: Speci men Type: BLOOD SPECIMEN Order[facility] Address: [address] [place] [address] Result Comment: Few Performed By: #### 5 8410-2 #### [facility] CLIA [id number] [address] [place] [address] [place] Glucose Test strip (U) [Mass/Vol] Negative Normal Trace, Negative [facility] Comment on above: Order Comment: Speci men Type: BLOOD SPECIMEN [facility] Address: [address] [place] [address] Performed By: #### 5 8410-2 #### [facility] CLIA [id number] [address] [place] [address] [place] Hemoglobin Ql (U) 1+ Abnormal Negative, Trace [facility] Comment on above: Order Comment: Speci men Type: BLOOD SPECIMEN [facility] Address: [address] [place] [address] Performed By: #### 5 8410-2 #### [facility] CLIA [id number] [address] [place] [address] [place] Ketones Ql (U) Negative Normal Negative, Trace [facility] Comment on above: Order Comment: Speci men Type: BLOOD SPECIMEN [facility] Address: [address] [place] [address] Performed By: #### 5 8410-2 #### [facility] CLIA [id number] [address] [place] [address] [place] Leukocyte esterase Test strip Ql (U) 500 Ghislaine/uL Abnormal Negative, 25 Ghislaine/uL [facility] Comment on above: Order Comment: Speci men Type: BLOOD SPECIMEN Order[facility] Address: [address] [place] [address] Performed By: #### 5 8410-2 #### [facility] CLIA [id number] [address] [place] [address] [place] Nitrite Ql (U) Negative Normal Negative [facility] Comment on above: Order Comment: Speci men Type: BLOOD SPECIMEN [facility] Address: [address] [place] [address] Performed By: #### 5 8410-2 #### [facility] CLIA [id number] [address] [place] [address] [place] pH (U) 6.0 [pH] Normal 5.0-8.[address] [facility] Comment on above: Order Comment: Speci men Type: BLOOD SPECIMEN Order[facility] Address: [address] [place] [address] Performed By: #### 5 8410-2 #### [facility] CLIA [id number] [address] [place] [address] [place] Protein (U) [Mass/Vol] Negative Normal Trace , Negative [facility] Comment on above: Order Comment: Speci men Type: BLOOD SPECIMEN [facility] Address: [address] [place] [address] Performed By: #### 5 8410-2 #### [facility] CLIA [id number] [address] [place] [address] [place] RBC LM.HPF (Urine sed) [#/Area] 3-5 /HPF Abnormal 0-3 /HPF [facility] Comment on above: Order Comment: Speci men Type: BLOOD SPECIMEN Order[facility] Address: [address] [place] [address] Performed By: #### 5 8410-2 #### [facility] CLIA [id number] [address] [place] [address] [place] Specific gravity (U) [Rel density] 1.013 Normal 1.005-1.[address] [facility] Comment on above: Order Comment: Speci men Type: BLOOD SPECIMEN Order[facility] Address: [address] [place] [address] Performed By: #### 5 8410-2 #### [facility] CLIA [id number] [address] [place] [address] [place] Urobilinogen Ql (U) Normal Normal Normal [facility] Comment on above: Order Comment: Speci men Type: BLOOD SPECIMEN Order[facility] Address: [address] [place] [address] Performed By: #### 5 8410-2 #### [facility] CLIA [id number] [address] [place] WBC LM.HPF (Urine sed) [#/Area] /[HPF] Abnormal 0-5 /HPF [facility] Comment on above: Order Comment: Speci men Type: BLOOD SPECIMEN Order[facility] Address: [address] [place] [address] Performed By: #### 5 8410-2 #### [facility] [place] [id number] [address] [place] Bacteria LM.HPF (Urine sed) [#/Area] Few Abnormal None Seen /HPF [facility] Bilirubin Ql (U) Negative Negative [facility] Clarity (Unsp spec) Cloudy Abnormal Clear [facility] Color (U) Yellow Yellow [facility] Epithelial cells LM.HPF (Urine sed) [#/Area] Moderate [facility] Epithelial cells LM.HPF (Urine sed) [#/Area] Few Abnormal None Seen /HPF [facility] Glucose Test strip (U) [Mass/Vol] Negative Trace, Negative [facility] Hemoglobin Ql (U) 1+ Abnormal Negative, Trace [facility] Ketones Ql (U) Negative Negative, Trace [facility] Leukocyte esterase Test strip Ql (U) 500 Ghislaine/uL Abnormal Negative, 25 Ghislaine/uL [facility] Nitrite Ql (U) Negative Negative [facility] pH (U) 6.0 [pH] 5.0 - 8.0 [facility] Protein (U) [Mass/Vol] Negative Trace , Negative [facility] RBC LM.HPF (Urine sed) [#/Area] 3-5 /HPF Abnormal 0-3 /HPF [facility] Specific gravity (U) [Rel density] 1.013 1.005 - 1.030 [facility] Urobilinogen Ql (U) Normal Normal [facility] WBC LM.HPF (Urine sed) [#/Area] /[HPF] Abnormal 0-5 /HPF [facility] CNPNon 09-21-2023 CNPN Telephone (CARCMN) HARJIT ASENCIO I ([id number]) 1950 F Date Time Provider Department 09/21/23 ALEA HARLEY During your visit today, we recorded the following information about you: Junito Mendes 09/21/2023 3:40 PM Signed September 21, 2023 Patient Contact Number: [phone] Patient last seen within the last year: [...] the next three business days. Yes Carmina Metz, ROCÍO 09/21/2023 4:[address] Harley would like patient to come in and be seen to go over this in greater detail. Work on setting her up with an ASSOCIATE TEAM PHYSICIAN and Dr. Harley would like to be in for the appointment. Next Monday. ROCÍO Mckeon Annette 09/22/2023 1:24 PM Signed Received call from Cardiothoracic surgery office. Patient contacted his office to discuss that she was unhappy with the medication and she would like someone to call her back to discuss. Fatou Ricci Job Training Supervisor September 22, 2023 1:23 PM Kim Greenberg, ROCÍO 09/22/2023 2:04 PM Signed Called patient and she told me she cannot come on the as she does not have a car. She said that she can come on the as she has a urology appointment and her son is bringing her. She said she is going to live with her daughter in [place] for a few months and she wants [...] speak with Dr. Harley. ROCÍO Montes De Oca Jacquelyn D 09/22/2023 2:59 PM Signed Pt called back; [...] that he wants her to see a ASSOCIATE TEAM PHYSICIAN or she will have to get a [...] regurgitation [I36*12 (more content not included)... Normal [facility] BMPon 09-17-2023 Anion gap [Moles/Vol] 9 mmol/L Normal 6-16 [facility] Comment on above: Performed By: #### 2 657475, 64021720, 98290156, 1594900, 81250041 ####[facility] [address] [place] [address] BUN/Creat Ratio 24 No Units High 10-20 [facility] Comment on above: Performed By: #### 2 572461, 68269971, 21616854, 3608276, 73904698 ####[facility] [address] [place] [address] Calcium [Mass/Vol] 9.1 mg/dL Normal 8.9-11.1 [facility] Comment on above: Performed By: #### 2 669968, 05209982, 58431018, 9110782, 37711369 ####[facility] [address] [place] [address] Chloride [Moles/Vol] 105 mmol/L Normal 101-111 [facility] Comment on above: Performed By: #### 2 737397, 27137458, 17624374, 3596500, 08728098 ####[facility] [address] [place] [address] CO2 [Moles/Vol] 28 mmol/L Normal 21-31 [facility] Comment on above: Performed By: #### 2 912392, 83564705, 98252440, 2549723, 99692295 ####[facility] [address] [place] [address] Creatinine [Mass/Vol] 0.7 mg/dL Normal 0.5-1.3 [facility] Comment on above: Performed By: #### 2 350153, 67375152, 46439133, 3100151, 64846467 ####[facility] [address] [place] [address] Glucose [Mass/Vol] 83 mg/dL Normal 55-199 [facility] Comment on above: Performed By: #### 2 085105, 94330613, 05574508, 1059815, 60471840 ####[facility] [address] [place] [address] Potassium [Moles/Vol] 4.0 mmol/L Normal 3.5-5.3 [facility] Comment on above: Performed By: #### 2 917147, 64008575, 65071022, 9469731, 89315721 ####[facility] [address] [facility] [address] Sodium [Moles/Vol] 138 mmol/L Normal 135-145 [facility] Comment on above: Performed By: #### 2 165098, 39778787, 38036842, 9612981, 64695616 ####[facility] [address] [place] [address] Urea nitrogen [Mass/Vol] 17 mg/dL Normal 5-21 [facility] Comment on above: Performed By: #### 2 326764, 15145811, 62605520, 0252381, 33409779 ####[address] [address] CBC w/ Auto Diffon 4 Basophil Absolute 0.1 E9/L Normal 0.0-0.2 [facility] Comment on above: Performed By: #### 2 120225, 97722047, 36632579, 6022049, 76893414 ####[address] [address] Basophils/100 WBC (Bld) 0.9 % Normal 0.0-2.0 [facility] Comment on above: Performed By: #### 2 217926, 62963761, 44088320, 1665084, 11892101 ####[address] [address] Eos Absolute 0.0 E9/L Normal 0.0-0.5 [facility] Comment on above: Performed By: #### 2 454495, 11237220, 23638996, 8511454, 34797083 ####[address] [address] Eosinophils/100 WBC (Bld) 0.7 % Normal 0.0-8.0 [facility] Comment on above: Performed By: #### 2 159075, 50742397, 73864999, 3219817, 23002525 ####[address] [address] Erythrocyte distribution width (RBC) [Ratio] 14.1 % Normal 10.9-14.2 [facility] Comment on above: Performed By: #### 2 156860, 50903198, 31505610, 5060106, 35202204 ####[facility] [address] [place] [address] Hematocrit (Bld) [Volume fraction] 36.0 % Normal 34.0-46.0 [facility] Comment on above: Performed By: #### 2 447871, 38269744, 63834954, 0496238, 20587324 ####[address] [place] [address] Hemoglobin (Bld) [Mass/Vol] 12.2 g/dL Normal 12.0-16.0 [facility] Comment on above: Performed By: #### 2 676409, 13599129, 86607738, 0516147, 04171540 ####[address] [place] [address] Lymph Absolute 2.1 E9/L Normal 1.0-4.0 [facility] Comment on above: Performed By: #### 2 848302, 74021908, 09405005, 7236386, 66346305 ####[address] [address] Lymphocytes/100 WBC (Bld) 31.6 % Normal 14.0-50.0 [facility] Comment on above: Performed By: #### 2 549099, 27090474, 20494164, 0372523, 05310097 ####[address] [place] [address] MCH (RBC) [Entitic mass] 30.0 pg Normal 27.0-34.0 [facility] Comment on above: Performed By: #### 2 222305, 93101313, 69011980, 5524748, 45077721 ####[address] [place] [address] MCHC (RBC) [Mass/Vol] 34.1 g/dL Normal 31.4-36.0 [facility] Comment on above: Performed By: #### 2 945203, 48154371, 82876856, 5272879, 55136290 ####[facility] [address] [place] [address] MCV (RBC) [Entitic vol] 88.0 fL Normal 80.0-100.0 [facility] Comment on above: Performed By: #### 2 179093, 86019291, 23448494, 7792066, 16584116 ####[address] [place] [address] Plumas Absolute 0.6 E9/L Normal 0.2-1.0 [facility] Comment on above: Performed By: #### 2 709601, 57724344, 55757798, 9880984, 81252050 ####[address] [address] Monocytes/100 WBC (Bld) 9.5 % Normal 4.0-14.0 [facility] Comment on above: Performed By: #### 2 447278, 20805388, 22887865, 2666005, 55788272 ####[facility] [address] [place] [address] Neutro Absolute 3.8 E9/L Normal 2.0-7.5 [facility] Comment on above: Performed By: #### 2 329214, 42097242, 93268504, 8761476, 85335394 ####[address] [address] Neutro Auto 57.3 % Normal 36.0-75.0 [facility] Comment on above: Performed By: #### 2 401800, 22416627, 01274298, 7594861, 15931460 ####[address] [place] [address] Platelet 186.0 E9/L Normal 150.0-500.0 [facility] Comment on above: Performed By: #### 2 182314, 11547406, 66219869, 4526608, 53198149 ####[address] [address] Platelet mean volume (Bld) [Entitic vol] 8.0 fL Normal 6.4-10.8 [facility] Comment on above: Performed By: #### 2 768399, 72847718, 75309249, 3147144, 64856489 ####[facility] [address] [place] [address] RBC 4.1 E12/L Low 4.3-5.9 [facility] Comment on above: Performed By: #### 2 936375, 82325305, 57317887, 1558452, 24096294 ####[facility] [address] [place] [address] WBC 6.6 E9/L Normal 4.0-11.0 [facility] Comment on above: Performed By: #### 2 238880, 17734248, 73598887, 7120680, 83960442 ####[facility] [address] [place] [address] CHEMISTRYOrdered By: SYSTEM SYSTEM on 09-17-2023 Anion [...] Chem Comment on above: Interpretive Data: T nathan 95% CI (Confidence Interval) PPV (Positive Predictive Value) for myocardial infarction in females is 38 pg/mL, in males 51 pg/mL. The results should be used in conjunction with clinical conditions of myocardial infarction. (Access High Sensitivity Troponin I Instructions For Use, Marlys SuddenValues, March 2018) Urea nitrogen [Mass/Vol] 17 mg/dL Normal 5 - 21 mg/dL [facility] Urea nitrogen/Creatinine [Mass ratio] 24 mg/mg High 10 - 20 [facility] CHEMISTRYOrdered By: Lab ROP User on 09-17-2023 Glucose [Mass/Vol] 79 mg/dL Normal 55 - 99 mg/dL [facility] POC Subsection Comment on above: Result Comment: Neli cain RN/ POC Device SN [id number] Invalid Interpretation Code [facility] POC Subsection POC User ID [id number] 1 Invalid Interpretation Code [facility] POC Subsection POC Username ZIGGY HOLGUIN Invalid Interpretation Code [facility] POC Subsection CNPNon 09-17-2023 TALIBN Telephone (OSMN) HARJIT ASENCIO I ([id number]) 1950 F Date Time Provider Department 09/17/23 [...] take that medication (valsartan) again. Carmina Mcmahan APRN.ROLLER HAND HVTI SOULEYMANE [employer] Sales Manager 09/17/2023 6:29 AM Allergies As of Date: [...] Encounter Status:Closed by CARMINA MCMAHAN on 09/17/23 [facility] TALIBN Telephone (THOSMN) HARJIT ASENCIO I ([id number]) 1950 F Date Time Provider Department 09/17/23 CARMINA MCMAHAN During your visit today, we recorded the following information about you: Carmina Mcmahan APRN.CNP 09/17/2023 4:29 AM Signed [facility] Center Inbound Phone Encounter DATE of SERVICE: 09/17/2023 TIME of SERVICE: 4:21 AM Status: Urgent Service/Provider: Clinical Cardiology Alea Harley MD Reason for call: Medication Issue/Question Contact information: [phone] Resolution: Rein[facility] Comments: Patient calling after waking up [...] is another medication to try. Carmina Mcmahan APRN.ROLLER HAND HVTI SOULEYMANE Field Insurance Sales Manager Date of Resolution: 09/17/2023 Time of Resolution [...] Status:Closed by CARMINA MCMAHAN on 09/17/[address] [facility] COAGULATIONOrdered By: Han Frost on 09-17-2023 aPTT Coag (PPP) [Time] 38.2 s High 25.1 - 36.5 second(s) [facility] Auto Coag Comment on above: Interpretive Data: Tim tipton 15 days - 4 weeks 1 - [...] the same coagulation reagent and instrumentation as [facility]. Currently there are no coagulation studies available worldwide for children to 14 days, and no normal ranges. Heparin therapeutic range (represented by Anti-Factor Xa activity of 0.2 - 0.4 U/mL) corresponds to PTT of 56.6 - 109.0 sec. INR Coag (PPP) [Relative time] 1.4 {INR} Invalid Interpretation Code [facility] Auto Coag Comment on above: Interpretive Data: I NR results are specifically intended to assess patients stabilized on long-term Anticoagulation therapy suggested INR s Less Intensive Anticoagulation 2.0 3.0 Conventional Range 3.0 4.5 PT Coag (PPP) [Time] 16.4 s High 9.4 - 1 2.5 second(s) [facility] Auto Coag Comment on above: Interpretive Data: [...] the same coagulation reagent and instrumentation as [facility]. Currently there are no coagulation studies available worldwide for children to 14 days, and no normal ranges. Capillary Glucose POCon Glucose [Mass/Vol] 79 mg/dL Normal 55-99 [facility] Comment on above: Result Comment: Neli cain RN/ Performed By: #### 2 [id number] ####[facility] [address] [place] [address] Consent for Treatmenton Consent for Treatment [id number] .00TIFF Normal [facility] Discharge Instructionson Discharge Instructions [id number]# 1.00TIFF Normal [facility] ED Clinical Summaryon 2023 ED Clinical Summary Normal Colette morgan [facility] ED Note-Physicianon 09-17-19 ED Note-Physician Normal [facility] Comment on above: Result Comment: Elec tronically Signed By: Parveen Ayers DO\.zak\Date and Time Signed: 09/17/23 06:06 EST ED Patient Education Noteon 09-17-2023 ED Patient Education Note Normal [facility] ED Patient Summaryon 024 ED Patient Summary Normal [facility] HEMATOLOGYOrdered By: SYSTEM SYSTEM on 09-17-2023 Basophil [...] Normal 80.0 - 100.0 fL Remisol Heme [place] Absolute 0.6 E9/L Normal 0.2 - 1.0 [...] Remisol Heme Monitor Recordon 09-17-2023 Monitor Record [id number]# 1.00TIFF Normal [facility] PT & PTTon 09-17-2023 aPTT Coag (PPP) [Time] 38.2 second(s) High 25.1-36.5 [facility] Comment on above: Result Comment: Para meter [...] the same coagulation reagent and instrumentation as [facility]. Currently there are no coagulation studies available worldwide for children to 14 days, and no normal ranges. Heparin therapeutic range (represented by Anti-Factor Xa activity of 0.2 - 0.4 U/mL) corresponds to PTT of 56.6 - 109.0 sec. Performed By: #### 2 381760, 68088550, 68229292, 9458650, 42486721 ####[facility] [address] [place] [address] INR Coag (PPP) [Relative time] 1.4 {INR} Invalid Interpretation Code [facility] Comment on above: Result Comment: INR results are specifically intended to assess patients stabilized on long-term Anticoagulation therapy suggested INR?s ?Less Intensive Anticoagulation? 2.0 ? 3.0Conventional Range 3.0 ? 4.5 Performed By: #### 2 598033, 37400686, 83866944, 3711597, 09749442 ####[facility] [address] [place] [address] PT Coag (PPP) [Time] 16.4 second(s) High 9.4-12.5 [facility] Comment on above: Result Comment: 15 d [...] the same coagulation reagent and instrumentation as [facility]. Currently there are no coagulation studies available worldwide for children to 14 days, and no normal ranges. Performed By: #### 2 766230, 42174457, 32368372, 3137868, 81484755 ####[facility] [address] [place] [address] Troponin 0 Hr.on 09-17-2023 Troponin 11.70 pg/mL Normal 10.10-27.10 [facility] Comment on above: Result Comment: The 95% CI (Confidence Interval) PPV (Positive Predictive Value) for myocardial infarction in females is 38 pg/mL, in males 51 pg/mL. The results should be used in conjunction with clinical conditions of myocardial infarction.(Access High Sensitivity Troponin I Instructions For Use, Marlys Harris, March 2018) Performed By: #### 2 803329, 59904655, 75257549, 7024462, 84742981 ####[facility] [address] [place] [address] XR Chest Single Viewon 09-17 XR Chest Single View Normal Fish er [facility] eGFRon 09-17-2023 eGFR 90 mL/min/1.73 m2 Normal >=59 [facility] Comment on above: Order Comment: Order added by Discern Expert. Performed By: #### 2 352855, 39547702, 69917594, 8388989, 59992348 ####[facility] [address] [place] [address] BMPon 09-12-2023 Anion gap [Moles/Vol] 12 mmol/L Normal 6-16 [facility] Comment on above: Performed By: #### 1 2051549, 6284955, 6367418, 84935731 ####[facility] [address] [place] [address] BUN/Creat Ratio 27 No Units High 10-20 [facility] Comment on above: Performed By: #### 1 0766765, 4638443, 7917087, 24058640 ####[facility] [address] [facility] [place] [address] Calcium [Mass/Vol] 9.5 mg/dL Normal 8.9-11.1 [facility] Comment on above: Performed By: #### 1 7869669, 0320550, 6495677, 19223213 ####[facility] [address] [place] [address] Chloride [Moles/Vol] 101 mmol/L Normal 101-111 [facility] Comment on above: Performed By: #### 1 1592005, 2412712, 4662160, 49692825 ####[facility] [address] [place] [address] CO2 [Moles/Vol] 27 mmol/L Normal 21-31 [facility] Comment on above: Performed By: #### 1 6494975, 7765838, 7213953, 87935086 ####[facility] [address] [place] [address] Creatinine [Mass/Vol] 0.9 mg/dL Normal 0.5-1.3 [facility] Comment on above: Performed By: #### 1 1108832, 6982811, 0106904, 21496959 ####[facility] [address] [facility] [place] [address] Glucose [Mass/Vol] 87 mg/dL Normal 55-199 [facility] Comment on above: Performed By: #### 1 0563007, 7886909, 9605313, 30042307 ####[facility] [address] [place] [address] Potassium [Moles/Vol] 4.9 mmol/L Normal 3.5-5.3 [facility] Comment on above: Performed By: #### 1 1737462, 6996614, 2637810, 63643827 ####[address] [address] Sodium [Moles/Vol] 135 mmol/L Normal 135-145 [facility] Comment on above: Performed By: #### 1 4268500, 4238126, 3711497, 76808923 ####[address] [address] Urea nitrogen [Mass/Vol] 24 mg/dL High 5-21 [facility] Comment on above: Performed By: #### 1 6161552, 2685221, 7871758, 34580855 ####[address] [address] CBC w/ Auto Diffon 4 Basophil Absolute 0.1 E9/L Normal 0.0-0.2 [facility] Comment on above: Performed By: #### 1 8317928, 3631254, 6216823, 11695272 ####[address] [address] Basophils/100 WBC (Bld) 1.1 % Normal 0.0-2.0 [facility] Comment on above: Performed By: #### 1 6451649, 5349499, 6827876, 08273463 ####[address] [address] Eos Absolute 0.1 E9/L Normal 0.0-0.5 [facility] Comment on above: Performed By: #### 1 9507399, 1524674, 6864975, 35494046 ####[address] [address] Eosinophils/100 WBC (Bld) 1.2 % Normal 0.0-8.0 [facility] Comment on above: Performed By: #### 1 6933731, 4722350, 7325148, 14285856 ####[address] [address] Erythrocyte distribution width (RBC) [Ratio] 13.7 % Normal 10.9-14.2 [facility] Comment on above: Performed By: #### 1 3185393, 2035166, 2044785, 18554938 ####[place] [address] Hematocrit (Bld) [Volume fraction] 41.0 % Normal 34.0-46.0 [facility] Comment on above: Performed By: #### 1 4249952, 2191416, 0669428, 04383261 ####[address] [address] Hemoglobin (Bld) [Mass/Vol] 13.4 g/dL Normal 12.0-16.0 [facility] Comment on above: Performed By: #### 1 5476094, 3097580, 6391122, 71526859 ####[address] [address] Lymph Absolute 1.9 E9/L Normal 1.0-4.0 [facility] Comment on above: Performed By: #### 1 0321682, 2977472, 9224150, 22749927 ####[address] [address] Lymphocytes/100 WBC (Bld) 25.9 % Normal 14.0-50.0 [facility] Comment on above: Performed By: #### 1 6372316, 7960927, 0004206, 34709712 ####[address] [address] MCH (RBC) [Entitic mass] 29.5 pg Normal 27.0-34.0 [facility] Comment on above: Performed By: #### 1 5435063, 5162637, 5001196, 76662402 ####[address] [address] MCHC (RBC) [Mass/Vol] 32.9 g/dL Normal 31.4-36.0 [facility] Comment on above: Performed By: #### 1 5271905, 7665463, 4077117, 48777590 ####[place] [address] [place] [address] MCV (RBC) [Entitic vol] 89.6 fL Normal 80.0-100.0 [facility] Comment on above: Performed By: #### 1 5709215, 7715862, 2590911, 30643355 ####[address] [address] [place] Absolute 0.6 E9/L Normal 0.2-1.0 [facility] Comment on above: Performed By: #### 1 2373664, 0160603, 5365283, 24746688 ####[place] [address] Monocytes/100 WBC (Bld) 8.0 % Normal 4.0-14.0 [facility] Comment on above: Performed By: #### 1 9947365, 2807385, 7902602, 12158345 ####[place] [address] [place] [address] Neutro Absolute 4.7 E9/L Normal 2.0-7.5 [facility] Comment on above: Performed By: #### 1 3233583, 1660183, 9985571, 81862866 ####[address] [address] Neutro Auto 63.8 % Normal 36.0-75.0 [facility] Comment on above: Performed By: #### 1 6813017, 4474392, 7852856, 92072770 ####[place] [address] [place] [address] Platelet 214.0 E9/L Normal 150.0-500.0 [facility] Comment on above: Performed By: #### 1 8593130, 5613134, 1271776, 62181025 ####[facility] [address] [place] [address] Platelet mean volume (Bld) [Entitic vol] 8.2 fL Normal 6.4-10.8 [facility] Comment on above: Performed By: #### 1 9311890, 4456133, 6589777, 51499218 ####[facility] [address] [place] [address] RBC 4.6 E12/L Normal 4.3-5.9 [facility] Comment on above: Performed By: #### 1 5795098, 0444141, 4669575, 12754132 ####[facility] [address] [place] [address] WBC 7.4 E9/L Normal 4.0-11.0 [facility] Comment on above: Performed By: #### 1 4581334, 8006090, 0308162, 19333670 ####[facility] [address] [place] [address] CHEMISTRYOrdered By: Maryan Frost on 09-12-2023 U [...] Sensitivity Troponin I Instructions For Use, Marlys Harris, March 2018) Urea nitrogen [Mass/Vol] 24 mg/dL High 5 - 21 mg/dL Remisol Chem Urea nitrogen/Creatinine [Mass ratio] 27 mg/mg High 10 - 20 Rem[facility] Chem CHEMISTRYOrdered By: Lab ROP User on 09-12-2023 Glucose [Mass/Vol] 96 mg/dL Normal 55 - 99 mg/dL [facility] Comment on above: Result Comment: Neli cain RN/ POC Device SN [id number] Invalid Interpretation Code [facility] Subsection POC User ID [id number] 1 Invalid Interpretation Code [facility] Subsection POC Username CORINNE COTA Invalid Interpretation Code [facility] Subsection CNPJayde 09-12-2023 CNPN Telephone (CARCMN) HARJIT ASENCIO I ([id number]) 1950 F Date Time Provider Department 09/12/23 ALEA HARLEY CARCSC During your visit today, we recorded the following information about you: Junito Mendes 09/12/2023 9:26 AM Signed September 12, 2023 Patient Contact Number: [phone] Patient last seen within the last year: [...] states she was able to speak with ASSOCIATE TEAM PHYSICIAN in her PCP's office since he is [...] off the valsartan without a replacement Kim Greenberg RN 09/15/2023 5:[address] Harley, Valsartan is ideal here. Try half a tablet at bedtime to get you to acclimate. Dr. Harley is now back in the office. Call Monday to discuss how you are doing on low dose. Kim Greenberg RN 09/15/2023 5:23 PM Signed Called patient [...] mitral regurgitat (more content not included)... Normal [facility] Telephone (CARDHOSP) HARJIT ASENCIO I ([id number]) 1950 F Date Time Provider Department 09/12/23 MARTHA GALVEZ During your visit today, we recorded the following information about you: Martha Galvez MD 09/12/2023 3:10 AM Signed Cardiology Brief Plan of Care Note: Name: Harjit Asencio : 1950 Harjit Asencio is a 73 year old female [...] medical care. Martha Galvez MD PGY 5 Lunchroom Mother Heart,Vascular, and Thoracic [facility] Allergies As of Date: 09/12/2023 Noted [...] Status:Closed by MARTHA GALVEZ on 09/12/[address] [facility] CT Head or Brain w/o Contras ton 09-12-2023 CT Head or Brain w/o Contrast Normal [facility] Capillary Glucose POCon 08-16 Glucose [Mass/Vol] 96 mg/dL Normal 55-99 [facility] Comment on above: Result Comment: Neli cain RN/ Performed By: #### 2 [id number] ####[facility] [address] [place] [address] Consent for Treatmenton 08-16 Consent for Treatment [id number] .00TIFF Normal [facility] Discharge Instructionson Discharge Instructions [id number]#1 .00TIFF Normal [facility] ED Clinical Summaryon 2023 ED Clinical Summary Normal [facility] ED Note-Physicianon 09-12-19 24 ED Note-Physician Normal [facility] Comment on above: Result Comment: Elec tronically Signed By: Parveen Ayers DO\.br\Date and Time Signed: 09/12/23 06:35 EST ED Patient Education Noteon 09-12-2023 ED Patient Education Note Normal [facility] ED Patient Summaryon 024 ED Patient Summary Normal [facility] HEMATOLOGYOrdered By: SYSTEM SYSTEM on 09-12-2023 Basophil [...] Normal 80.0 - 100.0 fL Remisol Heme [place] Absolute 0.6 E9/L Normal 0.2 - 1.0 [...] Remisol Heme Monitor Recordon 09-12-2023 Monitor Record [id number]# 1.00TIFF Normal [facility] Troponin 0 Hr.on 09-12-2023 Troponin 12.70 pg/mL Normal 10.10-27.10 [facility] Comment on above: Result Comment: The 95% CI (Confidence Interval) PPV (Positive Predictive Value) for myocardial infarction in females is 38 pg/mL, in males 51 pg/mL. The results should be used in conjunction with clinical conditions of myocardial infarction.(Access High Sensitivity Troponin I Instructions For Use, Marlys Ariadne, March 2018) Performed By: #### 1 0807249, 1368654, 9308293, 58728869 ####[facility] [address] [place] [address] U Drug Screenon 09-12-2023 U Amph Scr Negative Invalid Interpretation Code [facility] Comment on above: Performed By: #### 2 836355 ####[facility] [address] [place] [address] U Hayley Scr Negative Invalid Interpretation Code [facility] Comment on above: Performed By: #### 2 454457 ####[facility] [address] [place] [address] U Benzodia Scr Negative Invalid Interpretation Code [facility] Comment on above: Performed By: #### 2 056050 ####[facility] [address] [place] [address] U Cannab Scr Negative Invalid Interpretation Code [facility] Comment on above: Performed By: #### 2 729933 ####[facility] [address] [place] [address] U Cocaine Scr Negative Invalid Interpretation Code [facility] Comment on above: Performed By: #### 2 382768 ####[facility] [address] [place] [address] U Opiate Scr Negative Invalid Interpretation Code [facility] Comment on above: Performed By: #### 2 920225 ####[facility] [address] [place] [address] U PCP Scr Negative Invalid Interpretation Code [facility] Comment on above: Performed By: #### 2 611434 ####[facility] [address] [place] [address] UA With Cult Reflexon 2023 Bilirubin Ql (U) Negative Normal Negative [facility] Comment on above: Performed By: #### 1 2429807 ####[facility] [address] [place] [address] Clarity (U) CLEAR Normal Clear [facility] Comment on above: Performed By: #### 1 6346849 ####[facility] [address] [facility] [place] [address] Color (U) STRAW Invalid Interpretation Code [facility] Comment on above: Performed By: #### 1 4408961 ####[facility] [address] [facility] [place] [address] Epithelial cells.squamous LM.HPF (Urine sed) [#/Area] 0-2 Normal 0-2 [facility] Comment on above: Performed By: #### 1 7306074 ####[facility] [address] [place] [address] Glucose Test strip (U) [Mass/Vol] Negative Normal Negative [facility] Comment on above: Performed By: #### 1 0481272 ####[facility] [address] [facility] [place] [address] Hemoglobin Ql (U) 1+ Abnormal Negative [facility] Comment on above: Performed By: #### 1 4957824 ####[facility] [address] [facility] [place] [address] Ketones (U) [Mass/Vol] Negative Normal Negative [facility] Comment on above: Performed By: #### 1 1871732 ####[facility] [address] [facility] [place] [address] [place].plasma/[place] .RBC (Bld) [Mass ratio] 0-3 Normal 0-3 [facility] Comment on above: Performed By: #### 1 3233741 ####[facility] [address] [facility] [place] [address] Nitrite Ql (U) Negative Normal Negative [facility] Comment on above: Performed By: #### 1 2450562 ####[facility] [address] [place] [address] pH (U) 7.0 [pH] Invalid Interpretation Code 5.0-9.0 [facility] Comment on above: Performed By: #### 1 7530178 ####[place] [address] Protein (U) [Mass/Vol] Negative Normal Negative [facility] Comment on above: Performed By: #### 1 4290542 ####[place] [address] Specific gravity (U) [Rel density] <=1.005 Invalid Interpretation Code 1.005-1.030 [facility] Comment on above: Performed By: #### 1 4669457 ####[place] [address] Type of Urine collection method Clean Catch Normal [facility] Comment on above: Performed By: #### 1 9697554 ####[place] [address] Urobilinogen Qn (U) 0.2 {Judith'U}/dL Normal 0.0-1.0 [facility] Comment on above: Performed By: #### 1 3622953 ####[place] [address] WBC Auto Ql (U) TRACE Abnormal Negative [facility] Comment on above: Performed By: #### 1 7556015 ####[place] [address] WBC LM.HPF (Urine sed) [#/Area] 0-5 Normal 0-5 [facility] Comment on above: Performed By: #### 1 5370649 ####[place] [address] URINALYSISOrdered By: Ethan Frost on 09-12-2023 Bilirubin Ql (U) Negative (09/12/23 4:53 AM) Normal Negative [facility] UA Auto SS Clarity (U) Clear (09/12/23 4:53 AM) Normal Clear [facility] UA Auto SS Color (U) STRAW Invalid Interpretation Code [facility] UA Auto SS Epithelial cells.squamous LM.HPF (Urine sed) [#/Area] 0-2 /HPF Normal 0-2/HPF [facility] UA Aut o SS Glucose Test strip (U) [Mass/Vol] Negative (09/12/23 4:53 AM) Normal Negative [facility] UA Auto SS Hemoglobin Ql (U) 1+ *ABN* (09/12/23 4:53 AM) Invalid Interpretation Code Negative [facility] UA Auto SS Ketones (U) [Mass/Vol] Negative (09/12/23 4:53 AM) Normal Negative [facility] UA Auto SS [place].plasma/[place] .RBC (Bld) [Mass ratio] 0-3 /HPF Normal 0-3/HPF [facility] UA Auto SS Nitrite Ql (U) Negative (09/12/23 4:53 AM) Normal Negative [facility] UA Auto SS pH (U) 7.0 *NA* (09/12/23 4:53 AM) Invalid Interpretation Code 5.0 - 9.0 [facility] UA Auto SS Protein (U) [Mass/Vol] Negative (09/12/23 4:53 AM) Normal Negative [facility] UA Auto SS Specific gravity (U) [Rel density] <=1.005 *NA* (09/12/23 4:53 AM) Invalid Interpretation Code 1.005 - 1.030 [facility] UA Auto SS UA Spec Desc Clean Catch (09/12/23 4:53 AM) Normal [facility] UA Auto SS Urobilinogen Qn (U) 0.2390565 {Judith'U}/dL Normal 0.0 - 1.0 EU/dL [facility] UA Auto SS WBC Auto Ql (U) Trace *ABN* (09/12/23 4:53 AM) Invalid Interpretation Code Negative [facility] UA Auto SS WBC LM.HPF (Urine sed) [#/Area] 0-5 /HPF Normal 0-5/HPF [facility] UA Auto SS XR Chest Single Viewon 09-12 XR Chest Single View Normal [facility] eGFRon 09-12-2023 eGFR 66 mL/min/1.73 m2 Normal >=59 [facility] Comment on above: Order Comment: Order added by Discern Expert. Performed By: #### 1 2828885, 1575167, 9307634, 90849930 ####[facility] [address] [place] [address] Samia 09-07-2023 CNPN Telephone (PODCCP) ELIFHARJIT I ([id number]) 1950 F Date Time Provider Department 09/07/23 LE LEYVA PODCCP During your visit today, we recorded the following information about you: Le Leyva, ROCÍO 09/07/2023 3:00 PM Signed Pt contacted for [...] Reason for Visit: Follow Up Phone Call [6315] Cmt: Relate care discharge follow up-day 0-kiucfqorp-baq clear Prescriptions as of 09/07/2023 - apixaban [...] Encounter Status:Closed by LE LEYVA on 09/07/23 [facility] Samia 09-01-2023 TALIBN Telephone (CARCMN) HARJIT ASENCIO I ([id number]) 1950 F Date Time Provider Department 09/01/23 ALEA HARLEY During your visit today, we recorded the following information about you: Junito Mendes 09/01/2023 9:33 AM Signed September 01, 2023 Patient Contact Number: [phone] Patient last seen within the last year: [...] the next three business days. Yes Hilary Cespedes, ROCÍO 09/01/2023 4:29 PM Addendum Let her know [...] Fully Assessed Reason for Visit: Medication Question [1859] Cmt: Eliquis and Valsartan Prescriptions as of [...] Encounter Status:Closed by JUNITO MENDES [facility]01[facility] HAR[facility] AS[facility] I ([id number]) 1950 F Date Time Provider Department 09/01/23 CARLA OLIVERA During your visit today, we recorded the following information about you: Carla Olivera RN 09/01/2023 2:47 PM Signed 1. Have you [...] Reason for Visit: Follow Up Phone Call [6572] Cmt: RC f/u all clear Prescriptions as [...] Encounter Status:Closed by CARLA OLIVERA on 09/01/[address] [facility] CBC panel Auto (Bld)on 08-31 Erythrocyte distribution width (RBC) [Ratio] 12.9 % Normal 11.5-15.[address] [facility] Comment on above: Order Comment: Speci men Type: BLOOD SPECIMEN [facility] Facility[facility] Address: [address] [place] [address] Performed By: #### 5 8410-2 #### [facility] CLIA [id number] [address] [place] [address] [place] Hematocrit (Bld) [Volume fraction] 36.1 % Normal 36.0-46.[address] [facility] Comment on above: Order Comment: Speci men Type: BLOOD SPECIMEN Ordering Facility[facility] Address: [address] [place] [address] Performed By: #### 5 8410-2 #### [facility] CLIA [id number] [address] [place] [address] [place] Hemoglobin (Bld) [Mass/Vol] 11.9 g/dL Normal 11.5-15.[address] [facility] Comment on above: Order Comment: Speci men Type: BLOOD SPECIMEN Order[facility] Address: [address] [place] [address] Performed By: #### 5 8410-2 #### [facility] CLIA [id number] [address] [place] [address] [place] MCH (RBC) [Entitic mass] 29.5 pg Normal 26.0-34.[address] [facility] Comment on above: Order Comment: Speci men Type: BLOOD SPECIMEN [facility] Address: [address] [place] [address] Performed By: #### 5 8410-2 #### [facility] CLIA [id number] [address] [place] [address] [place] MCHC (RBC) [Mass/Vol] 33.0 g/dL Normal 30.5-36.0 [facility] Comment on above: Order Comment: Speci men Type: BLOOD SPECIMEN [facility] Address: [address] [place] [address] Performed By: #### 5 8410-2 #### [facility] CLIA [id number] [address] [place] [address] [place] MCV (RBC) [Entitic vol] 89.4 fL Normal 80.0-100.[address] [facility] Comment on above: Order Comment: Speci men Type: BLOOD SPECIMEN [facility] Address: [address] [place] [address] Performed By: #### 5 8410-2 #### [facility] CLIA [id number] [address] [place] [address] [place] Nucleated RBC (Bld) [#/Vol] 10*3/uL Normal <0.[address] [facility] Comment on above: Order Comment: Speci men Type: BLOOD SPECIMEN [facility] Address: [address] [place] [address] Performed By: #### 5 8410-2 #### [facility] CLIA [id number] [address] [place] [address] [place] Platelet mean volume (Bld) [Entitic vol] 10.2 fL Normal 9.0-12.[address] [facility] Comment on above: Order Comment: Speci men Type: BLOOD SPECIMEN [facility] Address: [address] [place] [address] Performed By: #### 5 8410-2 #### [facility] CLIA [id number] [address] [place] [address] [place] Platelets (Bld) [#/Vol] 175 10*3/uL Normal 150-[address] [facility] Comment on above: Order Comment: Speci men Type: BLOOD SPECIMEN [facility] Address: [address] [place] [address] Performed By: #### 5 8410-2 #### [facility] CLIA [id number] [address] [place] [address] [place] RBC (Bld) [#/Vol] 4.04 10*6/uL Normal 3.90-5.20 [facility] Comment on above: Order Comment: Speci men Type: BLOOD SPECIMEN [facility] Address: [address] [place] [address] Performed By: #### 5 8410-2 #### [facility] CLIA [id number] [address] [place] [address] [place] WBC (Bld) [#/Vol] 6.11 10*3/uL Normal 3.70-11.00 [facility] Comment on above: Order Comment: Speci men Type: BLOOD SPECIMEN [facility] Address: [address] [place] [address] Performed By: #### 5 8410-2 #### [facility] CLIA [id number] [address] [place] [address] [place] CNDSon 08-31-2023 CNDS HNO ID: [id number] Author: CARLITOS MIDDLETON MD Service: Cardiovascular Medicine Author Type: Physician Type: Discharge Summary Filed: 08/31/2023 15:24 Note Text: DISCHARGE SUMMARY PATIENT NAME: Harjit Asencio ADMISSION DATE: 08/24/2023 DISCHARGE DATE: August 31, 2023 Attending Physician: Carlitos Middleton MD Code Status: Full Code Highest [...] business days of your discharge please call [phone]. 3) Psychiatry to discuss management of your anxiety and how to improve the regimen of your anxiety medications (lorazepam). If you don't see an appointment on my chart within 3 business days of your discharge please call [phone]. 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 #Afib ([id number] 5) Rate controlled this admission (hx of RVR), on anticoagulation which should be continued. Rate control with beta yolette and digoxin 0.125 mg. On 08/28/23 rhythm control achieved with HAROON DCCV, and digoxin was decreased by half. Plan: - Continue with digoxin 0.125 mg and carv (more content not included)... Normal [facility] metabolic 2000 panelon 08-31-2023 Albumin [Mass/Vol] 3.5 g/dL Low 3.9-4.9 [facility] Comment on above: Order Comment: Speci men Type: BLOOD SPECIMENOrdering Facility: [facility] Address: [address] [place] [address] Performed By: #### 1 9123-9, 13940-4 ####[facility] [id number] [place] [address] [place] ALP [Catalytic activity/Vol] 52 U/L Normal 34-[address] [facility] Comment on above: Order Comment: Speci men Type: BLOOD SPECIMENOrdering Facility: [facility] Address: [address] [place] [address] Performed By: #### 1 9123-9, 16285-0 ####[facility] [id number] [place] [address] [place] ALT [Catalytic activity/Vol] 24 U/L Normal 7-[address] [facility] Comment on above: Order Comment: Speci men Type: BLOOD SPECIMENOrdering Facility: [facility] Address: [address] [place] [address] Performed By: #### 1 23-9, 82366-3 ####[facility] [id number] [place] [address] [place] Anion gap [Moles/Vol] 9 mmol/L Normal 9-18 [facility] Comment on above: Order Comment: Speci men Type: BLOOD SPECIMENOrdering Facility: [facility] Address: [address] [place] [address] Performed By: #### 1 23-9, 26571-2 ####[facility] [id number] [place] [address] [place] AST [Catalytic activity/Vol] 20 U/L Normal 13-[address] [facility] Comment on above: Order Comment: Speci men Type: BLOOD SPECIMENOrdering Facility: [facility] Address: [address] [place] [address] Performed By: #### 1 23-9, ####[facility] [id number] [place] [address] [place] Bilirubin [Mass/Vol] 0.5 mg/dL Normal 0.2-1.3 [facility] Comment on above: Order Comment: Speci men Type: BLOOD SPECIMENOrdering Facility: [facility] Address: [address] [place] [address] Performed By: #### 1 9123-9, ####[facility] [id number] [place] [address] [place] [place] Calcium [Mass/Vol] 9.2 mg/dL Normal 8.5-10.2 [facility] Comment on above: Order Comment: Speci men Type: BLOOD SPECIMENOrdering Facility: [facility] Address: [address] [place] [address] Performed By: #### 1 239, ####[facility] LABCLIA [id number] [place] [address] [place] Chloride [Moles/Vol] 103 mmol/L Normal 97-105 [facility] Comment on above: Order Comment: Speci men Type: BLOOD SPECIMENOrdering Facility: [facility] Address: [address] [place] [address] Performed By: #### 1 239, ####[facility] LABCLIA [id number] [place] [address] [place] CO2 [Moles/Vol] 25 mmol/L Normal 22-[address] [facility] Comment on above: Order Comment: Speci men Type: BLOOD SPECIMENOrdering Facility: [facility] Address: [address] [place] [address] Performed By: #### 1 23-9, ####[facility] LABCLIA [id number] [place] [address] [place] Creatinine [Mass/Vol] 0.90 mg/dL Normal 0.58-0.96 [facility] Comment on above: Order Comment: Nichole becerra Type: BLOOD SPECIMENOrdering Facility: [facility] Address: [address] [place] [address] Performed By: #### 1 9123-9, ####[facility] [id number] [place] [address] [place] Creatinine and Glomerular filtration rate.predicted panel (S/P/Bld) 67 mL/min/1.73m??? Normal >=[address] [facility] Comment on above: Order Comment: Nichole becerra Type: BLOOD SPECIMENOrdering Facility: [facility] Address: [address] [place] [address] Result Comment: Shelley mated Glomerular Filtration Rate [...] actual GFR. Performed By: #### 1 9123-9, ####[facility] LABIA [id number] [place] [address] [place] Glucose [Mass/Vol] 85 mg/dL Normal 74-99 [facility] Comment on above: Order Comment: Nichole becerra Type: BLOOD SPECIMENOrdering Facility: [facility] Address: [address] [place] [address] Result Comment: The [place] [employer] (ADA) provides guidance for cutoff [...] Standards of Medical Care in Diabetes 2016, [place] [employer]. Diabetes Care. 2016.39(Suppl 1). Performed By: #### 1 9123-9, ####[facility] LABCLIA [id number] [place] [address] [place] Potassium [Moles/Vol] 4.3 mmol/L Normal 3.7-5.1 [facility] Comment on above: Order Comment: Speci men Type: BLOOD SPECIMENOrdering Facility: [facility] Address: [address] [place] [address] Performed By: #### 1 9123-9, ####[facility] LABCLIA [id number] [place] [address] [place] Protein [Mass/Vol] 5.9 g/dL Low 6.3-8.0 [facility] Comment on above: Order Comment: Speci men Type: BLOOD SPECIMENOrdering Facility: [facility] Address: [address] [place] [address] Performed By: #### 1 9123-9, ####[facility] LABCLIA [id number] [place] [address] [place] Sodium [Moles/Vol] 137 mmol/L Normal 136-144 [facility] Comment on above: Order Comment: Speci men Type: BLOOD SPECIMENOrdering Facility: [facility] Address: [address] [place] [address] Performed By: #### 1 9123-9, ####[facility] LABCLIA [id number] [place] [id number] [place] Urea nitrogen [Mass/Vol] 16 mg/dL Normal 7-[address] [facility] Comment on above: Order Comment: Speci men Type: BLOOD SPECIMENOrdering Facility: [facility] Address: [place] [id number] Performed By: #### 1 9123-9, 88943-6 ####[facility] LABIA [id number] [place] [id number] [facility] [place] Magnesium SerPl-mCncon 08-31 Magnesium [Mass/Vol] 2.2 mg/dL Normal 1.7-2.3 [facility] Comment on above: Order Comment: Speci men Type: BLOOD SPECIMENOrdering Facility: [facility] Address: [place] [id number] Performed By: #### 1 9123-9, 99426-0 ####[facility] LABCLIA [id number] [place] [id number] [place] NUTRITIONon 08-31-2023 NUTRITION HNO ID: [id number] Author: KRISHAN DUENAS RD Service: Nutrition Therapy Author Type: [...] to 4 gm Na+ per collaboration with Carlitos Middleton MD. Care Plan: Change diet to : electrolyte controlled 4 gm Na+ Vitamins and Minerals: Multivitamin with minerals Medications: Anti-emetics;Stool softener;Laxative (PRN) Monitor and Evaluation: Meet greater than 75% of estimated needs, Monitor bowel function, Monitor fluid/electrolyte balance, Monitor labs, I/Os, vital signs, weight MNT Billing: $ Reassessment: 1-15 minutes SIGNATURE: Krishan Duenas RD DATE: 08/31/2023 TIME: 10:53 AM Normal [facility] PT EDon 08-31-2023 PT ED HNO ID: [id number] Author: CAN RIBERA RPh Service: Pharmacy Author Type: Pharmacist Type: Patient Education Filed: 08/31/2023 11:32 Note Text: Heart Failure Counseling with Video Instruction Education Note Patient Name:Francois Asencio Service Date: 08/31/2023 Service Time: 11:32 AM [...] ORAL DAILY FURTHER RECOMMENDATIONS (IF ANY): MILLI Can Srinatheliseo, [facility] PAGER: [phone] Normal [facility] PT ED HNO ID: [id number] Author: KRISHAN DUENAS RD Service: Nutrition Therapy Author Type: [...] MNT Billing: $ Reassessment: 1-15 minutes SIGNATURE: Krishan Duenas RD PATIENT NAME: Harjit Asencio DATE: August 31, 2023 TIME: 12:07 PM PAGER: Normal [facility] FEMALE PELVIS TRANSABD LT Don 08-31-2023 FEMALE PELVIS TRANSABD LTD * * *Final Report* * * DATE OF EXAM: Aug 31 2023 8:57AM [facility] 1059 - US FEMALE PELVIS TRANSABD LTD / PROCEDURE REASON: [...] additional imaging is advised for this finding. University Extension Specialist: LILIANA Transcribe Date/Time: Aug 31 2023 9:09A Dictated by : RADHA PEREYRA MD This examination was interpreted and the report reviewed and electronically signed by: RADHA PEREYRA MD on Aug 31 2023 9:13AM EST [id number] Normal [facility] US FEMALE PELVIS TRANSVAGon 08-31-2023 US FEMALE PELVIS TRANSVAG * * *Final Report* * * DATE OF EXAM: Aug 31 2023 8:45AM [facility] 1060 - US FEMALE PELVIS TRANSVAG / [...] additional imaging is advised for this finding. University Extension Specialist: LILIANA Transcribe Date/Time: Aug 31 2023 9:09A Dictated by : RADHA PEREYRA MD This examination was interpreted and the report reviewed and electronically signed by: RADHA PEREYRA MD on Aug 31 2023 9:13AM EST [id number] N Normal [facility] CBC panel Auto (Bld)on 08-30 Erythrocyte distribution width (RBC) [Ratio] 13.1 % Normal 11.5-15.[address] [facility] Comment on above: Order Comment: Speci men Type: BLOOD SPECIMEN [facility] Address: [address] [place] [address] Performed By: #### 5 8410-2 #### [facility] CLIA [id number] [address] [place] [address] [place] Hematocrit (Bld) [Volume fraction] 38.9 % Normal 36.0-46.[address] [facility] Comment on above: Order Comment: Speci men Type: BLOOD SPECIMEN [facility] Address: [address] [place] [address] Performed By: #### 5 8410-2 #### [facility] CLIA [id number] [address] [place] [address] [place] Hemoglobin (Bld) [Mass/Vol] 12.6 g/dL Normal 11.5-15.[address] [facility] Comment on above: Order Comment: Speci men Type: BLOOD SPECIMEN [facility] Address: [address] [place] [address] Performed By: #### 5 8410-2 #### [facility] CLIA [id number] [address] [place] [address] [place] MCH (RBC) [Entitic mass] 29.9 pg Normal 26.0-34.[address] [facility] Comment on above: Order Comment: Speci men Type: BLOOD SPECIMEN [facility] Address: [address] [place] [address] Performed By: #### 5 8410-2 #### [facility] CLIA [id number] [address] [place] [address] [place] MCHC (RBC) [Mass/Vol] 32.4 g/dL Normal 30.5-36.0 [facility] Comment on above: Order Comment: Speci men Type: BLOOD SPECIMEN [facility] Address: [address] [place] [address] Performed By: #### 5 8410-2 #### [facility] CLIA [id number] [address] [place] [address] [place] MCV (RBC) [Entitic vol] 92.2 fL Normal 80.0-100.[address] [facility] Comment on above: Order Comment: Speci men Type: BLOOD SPECIMEN [facility] Address: [address] [place] [address] Performed By: #### 5 8410-2 #### [facility] CLIA [id number] [address] [place] [address] [place] Nucleated RBC (Bld) [#/Vol] 10*3/uL Normal <0.[address] [facility] Comment on above: Order Comment: Speci men Type: BLOOD SPECIMEN [facility] Address: [address] [place] [address] Performed By: #### 5 8410-2 #### [facility] CLIA [id number] [address] [place] [address] [place] Platelet mean volume (Bld) [Entitic vol] 10.4 fL Normal 9.0-12.[address] [facility] Comment on above: Order Comment: Speci men Type: BLOOD SPECIMEN [facility] Address: [address] [place] [address] Performed By: #### 5 8410-2 #### [facility] CLIA [id number] [address] [place] [address] [place] Platelets (Bld) [#/Vol] 185 10*3/uL Normal 150-[address] [facility] Comment on above: Order Comment: Speci men Type: BLOOD SPECIMEN [facility] Address: [address] [place] [address] Performed By: #### 5 8410-2 #### [facility] CLIA [id number] [address] [place] [address] [place] RBC (Bld) [#/Vol] 4.22 10*6/uL Normal 3.90-5.20 [facility] Comment on above: Order Comment: Speci men Type: BLOOD SPECIMEN [facility] Address: [address] [place] [address] Performed By: #### 5 8410-2 #### [facility] CLIA [id number] [address] [place] [address] [place] WBC (Bld) [#/Vol] 6.51 10*3/uL Normal 3.70-11.00 [facility] Comment on above: Order Comment: Speci men Type: BLOOD SPECIMEN [facility] Address: [address] [place] [address] Performed By: #### 5 8410-2 #### [facility] CLIA [id number] [address] [place] [address] [place] CNCOon 08-30-2023 CNCO Letter Text Normal [facility] CONSULT PROGon 08-30-2023 CONSULT PROG HNO ID: [id number] Author: CHAUNCEY LEYVA, PhD Service: Psychology Author Type: Resident Type: Consult Progress Note Filed: 09/05/2023 18:39 Note Text: Attestation signed by Chauncey Leyva, PhD at 09/05/2023 6:39 PM I have reviewed and agree with Dr. Pinzon's assessment and treatment plan. PSYCHOLOGY PROGRESS NOTE ADMISSION DATE: 08/24/2023 ATTENDING PROVIDER: Carlitos Middleton MD PRIMARY CARE PROVIDER: Peggy Nazario MD DATE: 08/30/2023 TIME: 1:00pm - 1:30pm Patient was seen for initial evaluation by psychiatry on 08/28. Referred to Psychology for Anxiety. Harjit Asencio was seen bedside for 30 minutes [...] pt will receive the most benefit from halfway outpatient psychotherapy. However, CL Psychology will be beneficial for supportive therapy, and development of adaptive coping skills during hospitalization. Pt is amenable to Psychology services. Psychology will continue to follow. RECOMMENDATIONS: -The [...] adaptive coping (more content not included)... Normal [facility] Comprehensive metabolic 2000 panelon 08-30-2023 Albumin [Mass/Vol] 3.9 g/dL Normal 3.9-4.9 [facility] Comment on above: Order Comment: Speci men Type: BLOOD SPECIMEN [facility] Address: [address] [place] [address] Performed By: #### 2 4323-8, 3016-3 #### [facility] CLIA [id number] [address] [place] [id number] [place] ALP [Catalytic activity/Vol] 65 U/L Normal 34-[address] [facility] Comment on above: Order Comment: Speci men Type: BLOOD SPECIMEN [facility] Address: [address] [place] [address] Performed By: #### 2 4323-8, 6-3 #### [facility] CLIA [id number] [address] [place] [address] [place] ALT [Catalytic activity/Vol] 28 U/L Normal 7-[address] [facility] Comment on above: Order Comment: Speci men Type: BLOOD SPECIMEN [facility] Address: [address] [place] [address] Performed By: #### 2 4323-8, 6-3 #### [facility] CLIA [id number] [address] [place] [address] [place] Anion gap [Moles/Vol] 9 mmol/L Normal 9-18 [facility] Comment on above: Order Comment: Speci men Type: BLOOD SPECIMEN [facility] Address: [address] [place] [id number] Performed By: #### 2 4323-8, 3016-3 #### [facility] CLIA [id number] [address] [place] [address] [place] AST [Catalytic activity/Vol] 24 U/L Normal 13-[address] [facility] Comment on above: Order Comment: Speci men Type: BLOOD SPECIMEN [facility] Address: [address] [place] [address] Performed By: #### 2 4323-8, 3016-3 #### [facility] CLIA [id number] [address] [place] [id number] [place] Bilirubin [Mass/Vol] 0.5 mg/dL Normal 0.2-1.3 [facility] Comment on above: Order Comment: Speci men Type: BLOOD SPECIMEN [facility] Address: [address] [place] [address] Performed By: #### 2 4323-8, 3015-3 #### [facility] CLIA [id number] [address] [place] [address] [place] Calcium [Mass/Vol] 9.3 mg/dL Normal 8.5-10.2 [facility] Comment on above: Order Comment: Speci men Type: BLOOD SPECIMEN [facility] Address: [address] [place] [address] Performed By: #### 2 4323-8, 3 #### [facility] CLIA [id number] [address] [place] [address] [place] Chloride [Moles/Vol] 103 mmol/L Normal 97-105 [facility] Comment on above: Order Comment: Speci men Type: BLOOD SPECIMEN [facility] Address: [address] [place] [address] Performed By: #### 2 4323-8, 3 #### [facility] CLIA [id number] [address] [place] [id number] [place] CO2 [Moles/Vol] 25 mmol/L Normal 22-[address] [facility] Comment on above: Order Comment: Speci men Type: BLOOD SPECIMEN [facility] Address: [address] [place] [address] Performed By: #### 2 4323-8, 3015-3 #### [facility] CLIA [id number] [address] [place] [id number] [place] Creatinine [Mass/Vol] 1.11 mg/dL High 0.58-0.96 [facility] Comment on above: Order Comment: Nichole becerra Type: BLOOD SPECIMEN [facility] Address: [address] [place] [address] Performed By: #### 2 4323-8, 3016-3 #### [facility] CLIA [id number] [address] [place] [address] [place] Creatinine and Glomerular filtration rate.predicted panel (S/P/Bld) 52 mL/min/1.73m??? Low >=[address] [facility] Comment on above: Order Comment: Nichole becerra Type: BLOOD SPECIMEN [facility] Address: [address] [place] [address] Result Comment: Shelley mated Glomerular Filtration Rate [...] actual GFR. Performed By: #### 2 4323-8, 6-3 #### [facility] CLIA [id number] [address] [place] [address] [place] Glucose [Mass/Vol] 149 mg/dL High 74-99 [facility] Comment on above: Order Comment: Nichole becerra Type: BLOOD SPECIMEN [facility] Address: [address] [place] [address] Result Comment: The [place] [employer] (ADA) provides guidance for cutoff [...] Standards of Medical Care in Diabetes 2016, [place] [employer]. Diabetes Care. 2016.39(Suppl 1). Performed By: #### 2 4323-8, 6-3 #### [facility] CLIA [id number] [address] [place] [id number] [place] Potassium [Moles/Vol] 5.0 mmol/L Normal 3.7-5.1 [facility] Comment on above: Order Comment: Speci men Type: BLOOD SPECIMEN [facility] Address: [address] [place] [address] Performed By: #### 2 4323-8, 3015-3 #### [facility] CLIA [id number] [address] [place] [address] [place] Protein [Mass/Vol] 6.3 g/dL Normal 6.3-8.0 [facility] Comment on above: Order Comment: Speci men Type: BLOOD SPECIMEN [facility] Address: [address] [place] [id number] Performed By: #### 2 4323-8, 3 #### [facility] CLIA [id number] [address] [place] [address] [place] Sodium [Moles/Vol] 137 mmol/L Normal 136-144 [facility] Comment on above: Order Comment: Speci men Type: BLOOD SPECIMEN [facility] Address: [address] [place] [address] Performed By: #### 2 4323-8, 6-3 #### [facility] CLIA [id number] [address] [place] [id number] [place] Urea nitrogen [Mass/Vol] 19 mg/dL Normal 7-[address] [facility] Comment on above: Order Comment: Speci men Type: BLOOD SPECIMEN [facility] Address: [address] [place] [address] Performed By: #### 2 4323-8, 3015-3 #### [facility] CLIA [id number] [address] [place] [id number] [place] Magnesium SerPl-mCncon 08-30 Magnesium [Mass/Vol] 2.2 mg/dL Normal 1.7-2.3 [facility] Comment on above: Order Comment: Speci men Type: BLOOD SPECIMEN [facility] Address: [address] [place] [address] Performed By: #### 2 4323-8, 3 #### [facility] CLIA [id number] [address] [place] NURSING PROGon 08-30-2023 NURSING PROG HNO ID: [id number] Author: CHAVA CAMPUZANO RN Service: Nursing Author Type: Registered Nurse Type: Nursing Progress Note Filed: 08/30/2023 16:30 Note Text: Event(s) / Intervention Note: PATIENT NAME: Harjit Asencio Patient Location: [address]02-11-13 Room: +voiding post robles removal, refer to [facility] for output. Normal [facility] NUTRITIONon 08-30-2023 NUTRITION HNO ID: [id number] Author: KRISHAN DUENAS RD Service: Nutrition Therapy Author Type: [...] by: Patient/family self-report, Anorexia Estimated kilocalorie needs: [phone] Calorie Calculation Method: 30-35 kcals/kg Estimated protein [...] Billing: $ Initial Assessment: 16-30 minutes SIGNATURE: Krishan Duenas RD PATIENT NAME: Harjit Asencio DATE: August 30, 2023 TIME: 12:32 PM Normal [facility] CBC panel Auto (Bld)on 08-29 Erythrocyte distribution width (RBC) [Ratio] 13.1 % Normal 11.5-15.[address] [facility] Comment on above: Order Comment: Speci men Type: BLOOD SPECIMEN [facility] Address: [address] [place] [address] Performed By: #### 5 8410-2 #### [facility] CLIA [id number] [address] [place] [address] [place] Hematocrit (Bld) [Volume fraction] 39.4 % Normal 36.0-46.[address] [facility] Comment on above: Order Comment: Speci men Type: BLOOD SPECIMEN [facility] Address: [address] [place] [address] Performed By: #### 5 8410-2 #### [facility] CLIA [id number] [address] [place] [address] [place] Hemoglobin (Bld) [Mass/Vol] 13.1 g/dL Normal 11.5-15.[address] [facility] Comment on above: Order Comment: Speci men Type: BLOOD SPECIMEN [facility] Address: [address] [place] [address] Performed By: #### 5 8410-2 #### [facility] CLIA [id number] [address] [place] [address] [place] MCH (RBC) [Entitic mass] 30.0 pg Normal 26.0-34.[address] [facility] Comment on above: Order Comment: Speci men Type: BLOOD SPECIMEN [facility] Address: [address] [place] [address] Performed By: #### 5 8410-2 #### [facility] CLIA [id number] [address] [place] [address] [place] MCHC (RBC) [Mass/Vol] 33.2 g/dL Normal 30.5-36.0 [facility] Comment on above: Order Comment: Speci men Type: BLOOD SPECIMEN [facility] Address: [address] [place] [address] Performed By: #### 5 8410-2 #### [facility] CLIA [id number] [address] [place] [address] [place] MCV (RBC) [Entitic vol] 90.4 fL Normal 80.0-100.[address] [facility] Comment on above: Order Comment: Speci men Type: BLOOD SPECIMEN [facility] Address: [address] [place] [address] Performed By: #### 5 8410-2 #### [facility] CLIA [id number] [address] [place] [address] [place] Nucleated RBC (Bld) [#/Vol] 10*3/uL Normal <0.[address] [facility] Comment on above: Order Comment: Speci men Type: BLOOD SPECIMEN [facility] Address: [address] [place] [address] Performed By: #### 5 8410-2 #### [facility] CLIA [id number] [address] [place] [address] [place] Platelet mean volume (Bld) [Entitic vol] 10.5 fL Normal 9.0-12.[address] [facility] Comment on above: Order Comment: Speci men Type: BLOOD SPECIMEN [facility] Address: [address] [place] [address] Performed By: #### 5 8410-2 #### [facility] CLIA [id number] [address] [place] [id number] [place] Platelets (Bld) [#/Vol] 192 10*3/uL Normal 150-[address] [facility] Comment on above: Order Comment: Speci men Type: BLOOD SPECIMEN [facility] Address: [address] [place] [address] Performed By: #### 5 8410-2 #### [facility] CLIA [id number] [address] [place] [address] [place] RBC (Bld) [#/Vol] 4.36 10*6/uL Normal 3.90-5.20 [facility] Comment on above: Order Comment: Speci men Type: BLOOD SPECIMEN [facility] Address: [address] [place] [address] Performed By: #### 5 8410-2 #### [facility] CLIA [id number] [address] [place] [address] [place] WBC (Bld) [#/Vol] 8.00 10*3/uL Normal 3.70-11.00 [facility] Comment on above: Order Comment: Speci men Type: BLOOD SPECIMEN [facility] Address: [address] [place] [address] Performed By: #### 5 8410-2 #### [facility] CLIA [id number] [address] [place] [address] [place] FLANK WO IVCONon 08-29-[address] FLANK WO IVCON * * *Final Report* * * DATE OF EXAM: Aug 29 2023 2:54PM [facility] [place] CT FLANK WO IVCON / [...] thorax: Cardiomegaly. Minimal left basilar subsegmental atelectasis Recruiting Consultant (topogram) images: Unremarkable. IMPRESSION: No urinary tract calculi. No acute findings in the abdomen or pelvis. Increased size of RIGHT adnexal/ovarian cystic lesion, which at discretion this could be further characterized with ultrasound. ACTIONABLE RESULT: FOLLOW-UP Acuity: Actionable Findings: Female reproductive tract (pelvis, adnexa) Routing code: WH_1 Recommendation: US FEMALE PELVIS NON-OB NON TORSION ([id number]) Time Frame: At the discretion of the clinical team. COMMUNICATION: Results will be communicated with the ordering provider via [email or web address] staff message or phone message by [employer] within 2 business days of report finalization. --END OF FINDING-- University Extension Specialist: LILIANA Transcribe Date/Time: Aug 29 2023 2:57P Dictated by : NITZA CARUSO MD This examination was interpreted and the report reviewed and electronically signed by: MIGEL CARRION MD on Aug 29 2023 4:39PM EST [id number] ACTIONABLE Invalid Interpretation Code [facility] metabolic 2000 panelon 08-29-2023 Albumin [Mass/Vol] 3.9 g/dL Normal 3.9-4.9 [facility] Comment on above: Order Comment: Speci men Type: BLOOD SPECIMEN [facility] Address: [address] [place] [address] Performed By: #### 5 8410-2 #### [facility] CLIA [id number] [address] [place] [address] [place] ALP [Catalytic activity/Vol] 58 U/L Normal 34-[address] [facility] Comment on above: Order Comment: Speci men Type: BLOOD SPECIMEN [facility] Address: [address] [place] [address] Performed By: #### 5 8410-2 #### [facility] CLIA [id number] [address] [place] [address] [place] ALT [Catalytic activity/Vol] 33 U/L Normal 7-[address] [facility] Comment on above: Order Comment: Speci men Type: BLOOD SPECIMEN [facility] Address: [address] [place] [address] Performed By: #### 5 8410-2 #### [facility] CLIA [id number] [address] [place] [address] [place] Anion gap [Moles/Vol] 10 mmol/L Normal 9-18 [facility] Comment on above: Order Comment: Speci men Type: BLOOD SPECIMEN [facility] Address: [address] [place] [address] Performed By: #### 5 8410-2 #### [facility] CLIA [id number] [address] [place] [address] [place] AST [Catalytic activity/Vol] 25 U/L Normal 13-[address] [facility] Comment on above: Order Comment: Speci men Type: BLOOD SPECIMEN [facility] Address: [address] [place] [address] Performed By: #### 5 8410-2 #### [facility] CLIA [id number] [address] [place] [address] [place] Bilirubin [Mass/Vol] 0.7 mg/dL Normal 0.2-1.3 [facility] Comment on above: Order Comment: Speci men Type: BLOOD SPECIMEN [facility] Address: [address] [place] [address] Performed By: #### 5 8410-2 #### [facility] CLIA [id number] [address] [place] [address] [place] Calcium [Mass/Vol] 9.0 mg/dL Normal 8.5-10.2 [facility] Comment on above: Order Comment: Speci men Type: BLOOD SPECIMEN [facility] Address: [address] [place] [address] Performed By: #### 5 8410-2 #### [facility] CLIA [id number] [address] [place] [address] [place] Chloride [Moles/Vol] 101 mmol/L Normal 97-105 [facility] Comment on above: Order Comment: Speci men Type: BLOOD SPECIMEN [facility] Address: [address] [place] [address] Performed By: #### 5 8410-2 #### [facility] CLIA [id number] [address] [place] [address] [place] CO2 [Moles/Vol] 25 mmol/L Normal 22-[address] [facility] Comment on above: Order Comment: Speci men Type: BLOOD SPECIMEN [facility] Address: [address] [place] [address] Performed By: #### 5 8410-2 #### [facility] CLIA [id number] [address] [place] [address] [place] Creatinine [Mass/Vol] 0.87 mg/dL Normal 0.58-0.96 [facility] Comment on above: Order Comment: Nichole becerra Type: BLOOD SPECIMEN [facility] Address: [address] [place] [address] Performed By: #### 5 8410-2 #### [facility] CLIA [id number] [address] [place] [address] [place] Creatinine and Glomerular filtration rate.predicted panel (S/P/Bld) 70 mL/min/1.73m??? Normal >=[address] [facility] Comment on above: Order Comment: Nichole becerra Type: BLOOD SPECIMEN [facility] Address: [address] [place] [address] Result Comment: Shelley mated Glomerular Filtration Rate [...] accurately reflect actual GFR. Performed By: #### 5 8410-2 #### [facility] CLIA [id number] [address] [place] [address] [place] Glucose [Mass/Vol] 85 mg/dL Normal 74-99 [facility] Comment on above: Order Comment: Césari men Type: BLOOD SPECIMEN [facility] Address: [address] [place] [address] Result Comment: The [place] Diabetes Association (ADA) provides guidance for cutoff [...] Standards of Medical Care in Diabetes 2016, [place] [employer]. Diabetes Care. 2016.39(Suppl 1). Performed By: #### 5 8410-2 #### [facility] CLIA [id number] [address] [place] [address] [place] Potassium [Moles/Vol] 4.7 mmol/L Normal 3.7-5.1 [facility] Comment on above: Order Comment: Speci men Type: BLOOD SPECIMEN [facility] Address: [address] [place] [address] Performed By: #### 5 8410-2 #### [facility] CLIA [id number] [address] [place] [address] [place] Protein [Mass/Vol] 6.3 g/dL Normal 6.3-8.0 [facility] Comment on above: Order Comment: Speci men Type: BLOOD SPECIMEN [facility] Address: [address] [place] [address] Performed By: #### 5 8410-2 #### [facility] CLIA [id number] [address] [place] [address] [place] Sodium [Moles/Vol] 136 mmol/L Normal 136-144 [facility] Comment on above: Order Comment: Speci men Type: BLOOD SPECIMEN [facility] Address: [address] [place] [address] Performed By: #### 5 8410-2 #### [facility] CLIA [id number] [address] [place] [address] [place] Urea nitrogen [Mass/Vol] 15 mg/dL Normal 7-[address] [facility] Comment on above: Order Comment: Speci men Type: BLOOD SPECIMEN [facility] Address: [address] [place] [address] Performed By: #### 5 8410-2 #### [facility] CLIA [id number] [address] [place] [address] [place] DIGOXIN/LANOXINon 08-29-2023 Digoxin [Mass/Vol] 1.0 ng/mL Normal 0.6-1.2 [facility] Comment on above: Order Comment: Nichole becerra Type: BLOOD SPECIMEN [facility] Address: [address] [place] [address] Result Comment: Prov ided therapeutic concentrations are based on the 2008 ESC Guidelines for the Diagnosis and Treatment of Acute and Chronic Heart Failure. Reference ranges and high/low indicator flags are provided as general guidelines only. The treating physician must determine appropriate target levels/dosing based on the specific clinical situation. Performed By: #### 5 8410-2 #### [facility] CLIA [id number] [address] [place] [address] [place] Magnesium SerPl-mCncon 08-29 Magnesium [Mass/Vol] 2.2 mg/dL Normal 1.7-2.3 [facility] Comment on above: Order Comment: Nichole becerra Type: BLOOD SPECIMEN [facility] Address: [address] [place] [address] Performed By: #### 5 8410-2 #### [facility] CLIA [id number] [address] [place] [address] [place] NUTRITIONon 08-29-2023 NUTRITION HNO ID: [id number] Author: KARINA HOLLY DTR Service: Nutrition Therapy Author Type: Salvage Clerk Type: Nutrition Filed: 08/29/2023 13:57 Note Text: NUTRITION THERAPY CAISSON WORKER NOTE SERVICE DATE: 08/29/2023 SERVICE TIME: 1200 [...] some. Egg allergy has been added in [facility] and has interfaced in [employer]. ROCÍO Brown was informed. MNT Billing: $ Routine Care : 1-15 minutes SIGNATURE: Karina Holly DTR PATIENT NAME: Harjit Asencio DATE: August 29, 2023 TIME: 1:52 PM Normal [facility] THYROID PEROXIDASE ANTIBODY BLOODon 08-29-2023 TPO Ab Qn [IU]/mL Normal <5.[address] [facility] Comment on above: Order Comment: Speci men Type: BLOOD SPECIMEN [facility] Address: [address] [place] [address] Result Comment: Thyr oid Peroxidase Antibody test is used as an aid in diagnosis of autoimmune thyroid disease. Clinical correlation is required. Performed By: #### 5 8410-2 #### [facility] CLIA [id number] [address] [place] [address] [place] ANES POSTPROC EVALon 024 ANES POSTPROC EVAL HNO ID: [id number] Author: ANNELISE CLEMONS MD Service: ? Author Type: Anesthesiologist Type: Anesthesia Postprocedure Evaluation Filed: 08/28/2023 18:34 Note Text: POST ANESTHESIA EVALUATION NOTE : 1950 Procedure Summary Date: 08/28/23 Room / Location: [address] [facility] Anesthesia Start: 1823 Anesthesia Stop: 1833 Procedure: [...] Documentation SIGNATURE: Annelise Clemons MD PATIENT NAME: Harjit Asencio DATE: August 28, 2023 TIME: 6:34 PM CSN: [id number] Normal [facility] ANES PRE-OPon 08-28-2023 ANES PRE-OP HNO ID: [id number] Author: ANNELISE CLEMONS MD Service: ? Author Type: Anesthesiologist Type: Anesthesia Preprocedure Evaluation Filed: 08/28/2023 18:26 Note Text: ANESTHESIOLOGY DAY OF SURGERY NOTE : 1950 Procedure Information Date/Time: 08/28/231704 Procedure: CARDIOVERSION EXTERNAL ELECTIVE Location: [facility] Surgeons: Lorenza Jackson MD Estimated body [...] Surgery/Procedure. SIGNATURE: Annelise Clemons MD PATIENT NAME: Harjit Asencio DATE: August 28, 2023 TIME: 6:26 PM CSN: [id number] Normal [facility] CBC panel Auto (Bld)on 08-28 Erythrocyte distribution width (RBC) [Ratio] 13.1 % Normal 11.5-15.[address] [facility] Comment on above: Order Comment: Speci men Type: BLOOD SPECIMEN [facility] Address: [address] [place] [address] Performed By: #### 5 8410-2 #### [facility] CLIA [id number] [address] [place] [address] [place] Hematocrit (Bld) [Volume fraction] 37.8 % Normal 36.0-46.[address] [facility] Comment on above: Order Comment: Speci men Type: BLOOD SPECIMEN [facility] Address: [address] [place] [address] Performed By: #### 5 8410-2 #### [facility] CLIA [id number] [address] [place] [address] [place] Hemoglobin (Bld) [Mass/Vol] 12.3 g/dL Normal 11.5-15.[address] [facility] Comment on above: Order Comment: Speci men Type: BLOOD SPECIMEN [facility] Address: [address] [place] [address] Performed By: #### 5 8410-2 #### [facility] CLIA [id number] [address] [place] [address] [place] MCH (RBC) [Entitic mass] 29.5 pg Normal 26.0-34.[address] [facility] Comment on above: Order Comment: Speci men Type: BLOOD SPECIMEN [facility] Address: [address] [place] [address] Performed By: #### 5 8410-2 #### [facility] CLIA [id number] [address] [place] [address] [place] MCHC (RBC) [Mass/Vol] 32.5 g/dL Normal 30.5-36.0 [facility] Comment on above: Order Comment: Speci men Type: BLOOD SPECIMEN [facility] Address: [address] [place] [address] Performed By: #### 5 8410-2 #### [facility] CLIA [id number] [address] [place] [address] [place] MCV (RBC) [Entitic vol] 90.6 fL Normal 80.0-100.[address] [facility] Comment on above: Order Comment: Speci men Type: BLOOD SPECIMEN [facility] Address: [address] [place] [address] Performed By: #### 5 8410-2 #### [facility] CLIA [id number] [address] [place] [address] [place] Nucleated RBC (Bld) [#/Vol] 10*3/uL Normal <0.[address] [facility] Comment on above: Order Comment: Speci men Type: BLOOD SPECIMEN [facility] Address: [address] [place] [address] Performed By: #### 5 8410-2 #### [facility] CLIA [id number] [address] [place] [address] [place] Platelet mean volume (Bld) [Entitic vol] 10.4 fL Normal 9.0-12.[address] [facility] Comment on above: Order Comment: Speci men Type: BLOOD SPECIMEN [facility] Address: [address] [place] [address] Performed By: #### 5 8410-2 #### [facility] CLIA [id number] [address] [place] [address] [place] Platelets (Bld) [#/Vol] 180 10*3/uL Normal 150-[address] [facility] Comment on above: Order Comment: Speci men Type: BLOOD SPECIMEN [facility] Address: [address] [place] [address] Performed By: #### 5 8410-2 #### [facility] CLIA [id number] [address] [place] [address] [place] RBC (Bld) [#/Vol] 4.17 10*6/uL Normal 3.90-5.20 [facility] Comment on above: Order Comment: Speci men Type: BLOOD SPECIMEN [facility] Address: [address] [place] [address] Performed By: #### 5 8410-2 #### [facility] CLIA [id number] [address] [place] [address] [place] WBC (Bld) [#/Vol] 6.22 10*3/uL Normal 3.70-11.00 [facility] Comment on above: Order Comment: Speci men Type: BLOOD SPECIMEN [facility] Address: [address] [place] [address] Performed By: #### 5 8410-2 #### [facility] CLIA [id number] [address] [place] [address] [place] CNOVon 08-28-2023 CNOV Office Visit (CAFLMN ) HARJIT ASENCIO I ([id number]) 1950 F Date Time Provider Department 08/28/23 2:00 PM IP TRANSESOPHAGEAL ECHO CAFLMN During your visit today, we recorded the following information about you: Temperature Pulse Respiration Blood pressure 96.8 degrees 71/minute 11/minute 102/54 Giselle Santana, ROCÍO 08/28/2023 5:30 PM Signed AMBULATORY PATIENT EDUCATION TOPIC: SURVIVAL SKILLS: haroon READINESS TO LEARN COGNITIVE ABILITY: Alert and [...] - Intolerance Date Reviewed: 08/28/2023 Reviewed by: Familia Londono RN - Fully Assessed Primary Visit Diagnosis:H/O major [...] 08/28/2023 08/28/2023 Route: INTRAVENOUS Encounter Status:Closed by FAMILIA LONDONO on 08/28/[address] [facility] CONSULTon 08-28-2023 CONSULT HNO ID: [id number] Author: GERMAINE CHOW MD Service: Psychiatry Author Type: Physician Type: Consults Filed: 08/29/2023 17:28 Note Text: PSYCHIATRY CONSULT SERVICE MEDICAL STUDENT INITIAL CONSULT NOTE DAY TIME COVERAGE: Between 8AM to 5PM, page [phone] NIGHT AND WEEKEND COVERAGE: After hours (5PM to 8AM) and weekends, page [phone] SERVICE DATE: August 28, 2023 SERVICE TIME: 4:40 PM Attending Note This note was generated by a MEDICAL STUDENT working under the supervision of an Attending Physician and is not authenticated until addended and cosigned by the Attending Physician at the beginning of this note. Consulting Service: Psychiatry, requested by Carlitos Middleton MD's team REASON FOR CONSULTATION: Anxiety; Changing medication from Lorazepam to Diazepam for anxiety symptoms. Subjective IDENTIFYING INFO: Ms. Asencio is a 73 year old female from [place], [place]. History of Present Illness: Ms. Asencio [...] to manage it. She presented to the [facility] on 08/24 after a visit w/ Dr Harley on 08/23 revealed non-ischemic cardiomyopathy with persistent Afib. A HAROON on 07/03/2023 revealed LVEF of 30% with b/l atrial enlargement and moderate to severe MR and TR. She also had associated pulmonary HTN. Repeat HAROON on 07/21/2023 revealed EF to be 40% [...] from her colorectal surgeon, which was the [facility]. In addition to her anxiety, voiding, and [...] happened, which was the of her in 2015, and therefore, loss of her main social support system. Her anxiety was exacerbated and she saw a therapist for 2 years until around 2018. She endorses feelings of guilt related to the pas (more content not included)... Normal [facility] Comprehensive metabolic 2000 panelon 08-28-2023 Albumin [Mass/Vol] 3.5 g/dL Low 3.9-4.9 [facility] Comment on above: Order Comment: Speci mariam Type: BLOOD SPECIMENOrdering Facility: [facility] Address: [address] [place] [address] Performed By: #### 2 4323-8, 3024-02 ####[facility] [id number] [facility] [id number] [address] [place] ALP [Catalytic activity/Vol] 52 U/L Normal 34-[address] [facility] Comment on above: Order Comment: Speci men Type: BLOOD SPECIMENOrdering Facility: [facility] Address: [address] [place] [address] Performed By: #### 2 4323-8, 3024-02 ####[facility] [id number] [place] [id number] [place] ALT [Catalytic activity/Vol] 31 U/L Normal 7-[address] [facility] Comment on above: Order Comment: Speci men Type: BLOOD SPECIMENOrdering Facility: [facility] Address: [address] [place] [address] Performed By: #### 2 4323-8, 3023-7 ####[facility] [id number] [place] [address] [place] Anion gap [Moles/Vol] 10 mmol/L Normal 9-18 [facility] Comment on above: Order Comment: Speci men Type: BLOOD SPECIMENOrdering Facility: [facility] Address: [address] [place] [address] Performed By: #### 2 4323-8, 7 ####[facility] [id number] [place] [address] [place] AST [Catalytic activity/Vol] 26 U/L Normal 13-[address] [facility] Comment on above: Order Comment: Speci men Type: BLOOD SPECIMENOrdering Facility: [facility] Address: [address] [place] [address] Performed By: #### 2 4323-8, 3023-7 ####[facility] [id number] [place] [address] [place] Bilirubin [Mass/Vol] 0.5 mg/dL Normal 0.2-1.3 [facility] Comment on above: Order Comment: Speci men Type: BLOOD SPECIMENOrdering Facility: [facility] Address: [address] [place] [address] Performed By: #### 2 4323-8, 3023-7 ####[facility] [id number] [place] [address] [place] Calcium [Mass/Vol] 9.5 mg/dL Normal 8.5-10.2 [facility] Comment on above: Order Comment: Speci men Type: BLOOD SPECIMENOrdering Facility: [facility] Address: [address] [place] [address] Performed By: #### 2 4323-8, 7 ####[facility] [id number] [place] [address] [place] Chloride [Moles/Vol] 106 mmol/L High 97-105 [facility] Comment on above: Order Comment: Speci men Type: BLOOD SPECIMENOrdering Facility: [facility] Address: [address] [place] [address] Performed By: #### 2 4323-8, 7 ####[facility] [id number] [place] [address] [place] CO2 [Moles/Vol] 24 mmol/L Normal 22-[address] [facility] Comment on above: Order Comment: Speci men Type: BLOOD SPECIMENOrdering Facility: [facility] Address: [address] [place] [address] Performed By: #### 2 4323-8, 7 ####[facility] [id number] [place] [address] [place] Creatinine [Mass/Vol] 0.75 mg/dL Normal 0.58-0.96 [facility] Comment on above: Order Comment: Speci men Type: BLOOD SPECIMENOrdering Facility: [facility] Address: [address] [place] [address] Performed By: #### 2 4323-8, 3023-7 ####[facility] [id number] [place] [address] [place] Creatinine and Glomerular filtration rate.predicted panel (S/P/Bld) 83 mL/min/1.73m??? Normal >=[address] [facility] Comment on above: Order Comment: Speci men Type: BLOOD SPECIMENOrdering Facility: [facility] Address: [address] [place] [address] Result Comment: Shelley mated Glomerular Filtration Rate [...] actual GFR. Performed By: #### 2 4323-8, 3024-02 ####[facility] [id number] [place] [address] [place] Glucose [Mass/Vol] 88 mg/dL Normal 74-99 [facility] Comment on above: Order Comment: Nichole becerra Type: BLOOD SPECIMENOrdering Facility: [facility] Address: [address] [place] [address] Result Comment: The [place] Diabetes Association (ADA) provides guidance for cutoff [...] Standards of Medical Care in Diabetes 2016, [place] [employer]. Diabetes Care. 2016.39(Suppl 1). Performed By: #### 2 4323-8, 3024-02 ####[facility] [id number] [place] [id number] [place] Potassium [Moles/Vol] 4.6 mmol/L Normal 3.7-5.1 [facility] Comment on above: Order Comment: Nichole becerra Type: BLOOD SPECIMENOrdering Facility: [facility] Address: [address] [place] [address] Performed By: #### 2 4323-8, 3024-02 ####[facility] [id number] [address] [address] [place] Protein [Mass/Vol] 5.9 g/dL Low 6.3-8.0 [facility] Comment on above: Order Comment: Speci men Type: BLOOD SPECIMENOrdering Facility: [facility] Address: [address] [place] [address] Performed By: #### 2 4323-8, 7 ####[facility]IA [id number] [place] [address] [place] Sodium [Moles/Vol] 140 mmol/L Normal 136-144 [facility] Comment on above: Order Comment: Speci men Type: BLOOD SPECIMENOrdering Facility: [facility] Address: [address] [place] [address] Performed By: #### 2 4323-8, 7 ####[facility]IA [id number] [place] [address] [place] Urea nitrogen [Mass/Vol] 13 mg/dL Normal 7-[address] [facility] Comment on above: Order Comment: Speci men Type: BLOOD SPECIMENOrdering Facility: [facility] Address: [address] [place] [address] Performed By: #### 2 4323-8, 3023-7 ####[facility]IA [id number] [place] [id number] [place] [id number] 08-28-2023 ECG01 Ventricular Rate : 6 1 BPM Atrial Rate : 416 BPM QRS Duration : 86 ms Q-T Interval : 324 ms QTC Calculation(Bazett) : 326 ms Calculated R [place] : 82 degrees Calculated T [place] : 20 degrees ATRIAL FLUTTER WITH VARIABLE A-V CONDUCTION ABNORMAL ECG Confirmed by fellow ZIGGY CRUZ MD ([id number]) on 09/04/2023 1:50:09 PM Confirmed by MD DEJUAN, PhD, KHUSHI ([id number]) on 09/11/2023 1:23:32 PM NAME : HARJIT ASENCIO PID : [id number] : 1950 Gender : Female Race : ORD : Procedure Date : Aug 28 2023 18:02:48 Edit Date : Sep 11 2023 13:23:36 Diagnosis: ATRIAL FLUTTER WITH VARIABLE A-V CONDUCTION ABNORMAL ECG Confirmed by fellow ZIGGY CRUZ MD ([id number]) on 09/04/2023 1:50:09 PM Confirmed by MD DEJUAN, PhD, KHUSHI ([id number]) on 09/11/2023 1:23:32 PM Test Reason : Location : 23 : J21NS Overread By : MD DEJUAN, PhD,KHUSHI Edited By : MD DEJUAN, PhD,KHUSHI Referred By : , Acquired by : [id number], Normal 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 HARJIT ASENCIO : 1950 Age: 73 years Gender: [...] present for and actively participated in the HAROON procedure. MEASUREMENTS: Value Normal Max aortic dimension [...] * * * Final * * * [facility] : [id number] amicsSISUID Normal [facility] NURSING PROGon 08-28-2023 NURSING PROG HNO ID: [id number] Author: GISELLE SANTANA RN Service: ? Author Type: Registered Nurse Type: Nursing Progress Note Filed: 08/28/2023 17:30 Note Text: AMBULATORY PATIENT EDUCATION TOPIC: SURVIVAL SKILLS: haroon READINESS TO LEARN COGNITIVE ABILITY: Alert and [...] Giselle Santana RN In Department: CARDIOLOGY Normal [facility] PT EDon 08-28-2023 PT ED HNO ID: [id number] Author: DENISHA SIERRA RN Service: ? Author Type: Registered [...] discussed with Physician, nurse practitioner or Physician assistant service manager upon discharge Instructions for transmitting EKG to Monitoring Center 3 month follow up instructions Contact number for information and questions Patient Evaluation: Verbalizes understanding Follow Up Plan: Follow up as needed Supplemental Material Given: None Instructed By Denisha Sierra RN. In Department of LAG236. Normal [facility] PT ED HNO ID: [id number] Author: MARGARET MARCELINO RN Service: Nursing Author [...] By Margaret Marcelino RN. In Department of NGN147. Normal [facility] T4 Free SerPl-mCncon 024 Free T4 [Mass/Vol] 1.1 ng/dL Normal 0.9-1.7 [facility] Comment on above: Order Comment: Speci men Type: BLOOD SPECIMEN [facility] Address: [address] [place] [address] Performed By: #### 5 8410-2 #### [facility] CLIA [id number] [address] [facility] [address] [place] CBC panel Auto (Bld)on 08-27 Erythrocyte distribution width (RBC) [Ratio] 12.8 % Normal 11.5-15.[address] [facility] Comment on above: Order Comment: Speci men Type: BLOOD SPECIMEN [facility] Address: [address] [place] [address] Performed By: #### 5 8410-2 #### [facility] CLIA [id number] [address] [place] [address] [place] Hematocrit (Bld) [Volume fraction] 38.9 % Normal 36.0-46.[address] [facility] Comment on above: Order Comment: Speci men Type: BLOOD SPECIMEN [facility] Address: [address] [place] [address] Performed By: #### 5 8410-2 #### [facility] CLIA [id number] [address] [place] [address] [place] Hemoglobin (Bld) [Mass/Vol] 12.7 g/dL Normal 11.5-15.[address] [facility] Comment on above: Order Comment: Speci men Type: BLOOD SPECIMEN [facility] Address: [address] [place] [address] Performed By: #### 5 8410-2 #### [facility] CLIA [id number] [address] [place] [address] [place] MCH (RBC) [Entitic mass] 29.4 pg Normal 26.0-34.[address] [facility] Comment on above: Order Comment: Speci men Type: BLOOD SPECIMEN [facility] Address: [address] [place] [address] Performed By: #### 5 8410-2 #### [facility] CLIA [id number] [address] [place] [address] [place] MCHC (RBC) [Mass/Vol] 32.6 g/dL Normal 30.5-36.0 [facility] Comment on above: Order Comment: Speci men Type: BLOOD SPECIMEN [facility] Address: [address] [place] [address] Performed By: #### 5 8410-2 #### [facility] CLIA [id number] [address] [place] [address] [place] MCV (RBC) [Entitic vol] 90.0 fL Normal 80.0-100.[address] [facility] Comment on above: Order Comment: Speci men Type: BLOOD SPECIMEN [facility] Address: [address] [place] [address] Performed By: #### 5 8410-2 #### [facility] CLIA [id number] [address] [place] [address] [place] Nucleated RBC (Bld) [#/Vol] 10*3/uL Normal <0.[address] [facility] Comment on above: Order Comment: Speci men Type: BLOOD SPECIMEN [facility] Address: [address] [place] [address] Performed By: #### 5 8410-2 #### [facility] CLIA [id number] [address] [place] [address] [place] Platelet mean volume (Bld) [Entitic vol] 10.4 fL Normal 9.0-12.[address] [facility] Comment on above: Order Comment: Speci men Type: BLOOD SPECIMEN [facility] Address: [address] [place] [address] Performed By: #### 5 8410-2 #### [facility] CLIA [id number] [address] [place] [address] [place] Platelets (Bld) [#/Vol] 143 10*3/uL Low 150-[address] [facility] Comment on above: Order Comment: Speci men Type: BLOOD SPECIMEN [facility] Address: [address] [place] [address] Performed By: #### 5 8410-2 #### [facility] CLIA [id number] [address] [address] [place] RBC (Bld) [#/Vol] 4.32 10*6/uL Normal 3.90-5.20 [facility] Comment on above: Order Comment: Speci men Type: BLOOD SPECIMEN [facility] Address: [address] [place] [address] Performed By: #### 5 8410-2 #### [facility] CLIA [id number] [address] [place] [address] [place] WBC (Bld) [#/Vol] 5.61 10*3/uL Normal 3.70-11.00 [facility] Comment on above: Order Comment: Speci men Type: BLOOD SPECIMEN [facility] Address: [address] [place] [address] Performed By: #### 5 8410-2 #### [facility] CLIA [id number] [address] [place], [place] [address] [place] Comprehensive metabolic 2000 panelon 08-27-2023 Albumin [Mass/Vol] 3.6 g/dL Low 3.9-4.9 [facility] Comment on above: Order Comment: Speci men Type: BLOOD SPECIMEN [facility] Address: [address] [place] [address] Performed By: #### 2 4323-8, 3016-3 #### [facility] CLIA [id number] [address] [place], [place] [address] [place] ALP [Catalytic activity/Vol] 59 U/L Normal 34-[address] [facility] Comment on above: Order Comment: Speci men Type: BLOOD SPECIMEN [facility] Address: [address] [place] [address] Performed By: #### 2 4323-8, 3016-3 #### [facility] CLIA [id number] [address] [place], [place] [address] [place] ALT [Catalytic activity/Vol] 29 U/L Normal 7-[address] [facility] Comment on above: Order Comment: Speci men Type: BLOOD SPECIMEN [facility] Address: [address] [place] [address] Performed By: #### 2 4323-8, 6-3 #### [facility] CLIA [id number] [address] [place] [address] [place] Anion gap [Moles/Vol] 8 mmol/L Low 9-18 [facility] Comment on above: Order Comment: Speci men Type: BLOOD SPECIMEN [facility] Address: [address] [place] [address] Performed By: #### 2 4323-8, 3015-3 #### [facility] CLIA [id number] [address] [place] [address] [place] AST [Catalytic activity/Vol] 27 U/L Normal 13-[address] [facility] Comment on above: Order Comment: Speci men Type: BLOOD SPECIMEN [facility] Address: [address] [place] [address] Performed By: #### 2 4323-8, 3015-3 #### [facility] CLIA [id number] [address] [place] [id number] [place] Bilirubin [Mass/Vol] 0.5 mg/dL Normal 0.2-1.3 [facility] Comment on above: Order Comment: Speci men Type: BLOOD SPECIMEN [facility] Address: [address] [place] [address] Performed By: #### 2 4323-8, 6-3 #### [facility] CLIA [id number] [address] [place] [id number] [place] Calcium [Mass/Vol] 9.1 mg/dL Normal 8.5-10.2 [facility] Comment on above: Order Comment: Speci men Type: BLOOD SPECIMEN [facility] Address: [address] [place] [address] Performed By: #### 2 4323-8, 3016-3 #### [facility] CLIA [id number] [address] [place] [address] [place] Chloride [Moles/Vol] 105 mmol/L Normal 97-105 [facility] Comment on above: Order Comment: Speci men Type: BLOOD SPECIMEN [facility] Address: [address] [place] [address] Performed By: #### 2 4323-8, 6-3 #### [facility] CLIA [id number] [address] [place] [address] [place] CO2 [Moles/Vol] 27 mmol/L Normal 22-[address] [facility] Comment on above: Order Comment: Speci men Type: BLOOD SPECIMEN [facility] Address: [address] [place] [address] Performed By: #### 2 4323-8, 6-3 #### [facility] CLIA [id number] [address] [place] [address] [place] Creatinine [Mass/Vol] 0.72 mg/dL Normal 0.58-0.96 [facility] Comment on above: Order Comment: Speci men Type: BLOOD SPECIMEN [facility] Address: [address] [place] [address] Performed By: #### 2 4323-8, 6-3 #### [facility] CLIA [id number] [address] [place] [address] [place] Creatinine and Glomerular filtration rate.predicted panel (S/P/Bld) 87 mL/min/1.73m??? Normal >=[address] [facility] Comment on above: Order Comment: Speci men Type: BLOOD SPECIMEN [facility] Address: [address] [place] [address] Result Comment: Shelley mated Glomerular Filtration Rate [...] actual GFR. Performed By: #### 2 4323-8, 6-3 #### [facility] CLIA [id number] [address] [place] [address] [place] Glucose [Mass/Vol] 92 mg/dL Normal 74-99 [facility] Comment on above: Order Comment: Nichole becerra Type: BLOOD SPECIMEN [facility] Address: [address] [place] [address] Result Comment: The [place] [employer] (ADA) provides guidance for cutoff [...] Standards of Medical Care in Diabetes 2016, [place] [employer]. Diabetes Care. 2016.39(Suppl 1). Performed By: #### 2 4323-8, 3015-3 #### [facility] CLIA [id number] [address] [place] [address] [place] Potassium [Moles/Vol] 4.7 mmol/L Normal 3.7-5.1 [facility] Comment on above: Order Comment: Nichoel becerra Type: BLOOD SPECIMEN [facility] Address: [address] [place] [address] Performed By: #### 2 4323-8, 6-3 #### [facility] CLIA [id number] [address] [place] [address] [place] Protein [Mass/Vol] 5.8 g/dL Low 6.3-8.0 [facility] Comment on above: Order Comment: Speci men Type: BLOOD SPECIMEN [facility] Address: [address] [place] [address] Performed By: #### 2 4323-8, 3016-3 #### [facility] CLIA [id number] [address] [place] [address] [place] Sodium [Moles/Vol] 140 mmol/L Normal 136-144 [facility] Comment on above: Order Comment: Speci men Type: BLOOD SPECIMEN [facility] Address: [address] [place] [address] Performed By: #### 2 4323-8, 6-3 #### [facility] CLIA [id number] [address] [place] [address] [place] Urea nitrogen [Mass/Vol] 15 mg/dL Normal 7-[address] [facility] Comment on above: Order Comment: Speci men Type: BLOOD SPECIMEN [facility] Address: [address] [place] [address] Performed By: #### 2 4323-8, 3016-3 #### [facility] CLIA [id number] [address] [place] [address] [place] TSH SerPl-aCncon 08-27-2023 TSH Qn 9.850 m[IU]/L High 0.270-4.[address] [facility] Comment on above: Order Comment: Speci men Type: BLOOD SPECIMEN [facility] Address: [address] [place] [address] Performed By: #### 2 4323-8, 3016-3 #### [facility] CLIA [id number] [address] [place] [address] [place] Bacteria Ur Culton [...] , Intermediate >32 , Resistant >[address] [facility] Comment on above: Performed By: #### 6 30-4 ####[facility] [id number] [place] [address] [place] CBC panel Auto (Bld)on 08-26 Erythrocyte distribution width (RBC) [Ratio] 13.1 % Normal 11.5-15.[address] [facility] Comment on above: Order Comment: Speci men Type: BLOOD SPECIMENOrdering Facility: [facility] Address: [address] [place] [address] Performed By: #### 5 8410-2 ####[facility] [id number] [place] [address] [place] Hematocrit (Bld) [Volume fraction] 38.5 % Normal 36.0-46.[address] [facility] Comment on above: Order Comment: Speci men Type: BLOOD SPECIMENOrdering Facility: [facility] Address: [address] [place] [address] Performed By: #### 5 8410-2 ####[facility] [id number] [place] [address] [place] Hemoglobin (Bld) [Mass/Vol] 12.8 g/dL Normal 11.5-15.[address] [facility] Comment on above: Order Comment: Speci men Type: BLOOD SPECIMENOrdering Facility: [facility] Address: [address] [place] [address] Performed By: #### 5 8410-2 ####[facility] [id number] [place] [id number] [place] MCH (RBC) [Entitic mass] 30.0 pg Normal 26.0-34.[address] [facility] Comment on above: Order Comment: Speci men Type: BLOOD SPECIMENOrdering Facility: [facility] Address: [address] [place] [address] Performed By: #### 5 8410-2 ####[facility] [id number] [place] [address] [place] MCHC (RBC) [Mass/Vol] 33.2 g/dL Normal 30.5-36.0 [facility] Comment on above: Order Comment: Speci men Type: BLOOD SPECIMENOrdering Facility: [facility] Address: [address] [place] [address] Performed By: #### 5 8410-2 ####[facility] [id number] [place] [address] [place] MCV (RBC) [Entitic vol] 90.4 fL Normal 80.0-100.[address] [facility] Comment on above: Order Comment: Speci men Type: BLOOD SPECIMENOrdering Facility: [facility] Address: [address] [place] [address] Performed By: #### 5 8410-2 ####[facility] [id number] [place] [address] [place] Nucleated RBC (Bld) [#/Vol] 10*3/uL Normal <0.[address] [facility] Comment on above: Order Comment: Speci men Type: BLOOD SPECIMENOrdering Facility: [facility] Address: [address] [place] [address] Performed By: #### 5 8410-2 ####[facility] [id number] [place] [address] [place] Platelet mean volume (Bld) [Entitic vol] 10.6 fL Normal 9.0-12.[address] [facility] Comment on above: Order Comment: Speci men Type: BLOOD SPECIMENOrdering Facility: [facility] Address: [address] [place] [address] Performed By: #### 5 8410-2 ####[facility] [id number] [place] [address] [place] Platelets (Bld) [#/Vol] 168 10*3/uL Normal 150-[address] [facility] Comment on above: Order Comment: Speci men Type: BLOOD SPECIMENOrdering Facility: [facility] Address: [place] [address] Performed By: #### 5 8410-2 ####[facility] [id number] [place] [address] [place] RBC (Bld) [#/Vol] 4.26 10*6/uL Normal 3.90-5.20 [facility] Comment on above: Order Comment: Speci men Type: BLOOD SPECIMENOrdering Facility: [facility] Address: [address] [place] [address] Performed By: #### 5 8410-2 ####[facility] [id number] [place] [address] [place] WBC (Bld) [#/Vol] 7.27 10*3/uL Normal 3.70-11.00 [facility] Comment on above: Order Comment: Speci men Type: BLOOD SPECIMENOrdering Facility: [facility] Address: [address] [place] [address] Performed By: #### 5 8410-2 ####[facility] [id number] [place] [address] [place] CONSULTon 08-26-2023 CONSULT HNO ID: [id number] Author: AMARIS GRACE MD Service: Urology Author [...] Reconstruction AND Prosthetic Surgery Fellow [facility] UROLOGY CONSULT NOTE PATIENT NAME: Harjit Asencio ASSESSMENT AND PLAN: Harjit Asencio is a 73 year old female [...] urethra -Will request outpatient follow up with [facility] provider to evaluate nature of voiding dysfunction, urethral stricture To be discussed with second affiliate Dr. Lucius Grace MD Resident PGY-2 Urology [facility] [place] [facility] Pager [phone] After 5pm and weekends please page Urology outreach consultant [id number] 3:37 PM 08/26/2023 HPI Harjit Asencio is a 73 year old female [...] 2012, had urodynamics and was seen by [facility] urology here at [facility] at that time. More recently she has [...] 8 MILA (more content not included)... Normal [facility] Comprehensive metabolic 2000 panelon 08-26-2023 Albumin [Mass/Vol] 3.5 g/dL Low 3.9-4.9 [facility] Comment on above: Order Comment: Speci men Type: BLOOD SPECIMEN [facility] Address: [address] [place] [address] Performed By: #### 5 8410-2 #### [facility] CLIA [id number] [address] [place] [address] [place] ALP [Catalytic activity/Vol] 60 U/L Normal 34-[address] [facility] Comment on above: Order Comment: Speci men Type: BLOOD SPECIMEN [facility] Address: [address] [place] [address] Performed By: #### 5 8410-2 #### [facility] CLIA [id number] [address] [place] [address] [place] ALT [Catalytic activity/Vol] 25 U/L Normal 7-[address] [facility] Comment on above: Order Comment: Speci men Type: BLOOD SPECIMEN [facility] Address: [address] [place] [address] Performed By: #### 5 8410-2 #### [facility] CLIA [id number] [facility] [place] [address] [place] Anion gap [Moles/Vol] 10 mmol/L Normal 9-18 [facility] Comment on above: Order Comment: Speci men Type: BLOOD SPECIMEN [facility] Address: [address] [place] [address] Performed By: #### 5 8410-2 #### [facility] CLIA [id number] [address] [place] [id number] [place] AST [Catalytic activity/Vol] 22 U/L Normal 13-[address] [facility] Comment on above: Order Comment: Speci men Type: BLOOD SPECIMEN [facility] Address: [address] [place] [address] Performed By: #### 5 8410-2 #### [facility] CLIA [id number] [address] [place] [address] [place] Bilirubin [Mass/Vol] 0.4 mg/dL Normal 0.2-1.3 [facility] Comment on above: Order Comment: Speci men Type: BLOOD SPECIMEN [facility] Address: [address] [place] [address] Performed By: #### 5 8410-2 #### [facility] CLIA [id number] [address] [place] [address] [place] Calcium [Mass/Vol] 8.9 mg/dL Normal 8.5-10.2 [facility] Comment on above: Order Comment: Speci men Type: BLOOD SPECIMEN [facility] Address: [address] [place] [address] Performed By: #### 5 8410-2 #### [facility] CLIA [id number] [address] [place] [address] [place] Chloride [Moles/Vol] 104 mmol/L Normal 97-105 [facility] Comment on above: Order Comment: Speci men Type: BLOOD SPECIMEN [facility] Address: [address] [place] [address] Performed By: #### 5 8410-2 #### [facility] CLIA [id number] [address] [place] [id number] [place] CO2 [Moles/Vol] 26 mmol/L Normal 22-[address] [facility] Comment on above: Order Comment: Speci men Type: BLOOD SPECIMEN [facility] Address: [address] [place] [address] Performed By: #### 5 8410-2 #### [facility] CLIA [id number] [facility] [place] [address] [place] Creatinine [Mass/Vol] 0.84 mg/dL Normal 0.58-0.96 [facility] Comment on above: Order Comment: Speci men Type: BLOOD SPECIMEN [facility] Address: [address] [place] [address] Performed By: #### 5 8410-2 #### [facility] CLIA [id number] [address] [place] [address] [place] Creatinine and Glomerular filtration rate.predicted panel (S/P/Bld) 73 mL/min/1.73m??? Normal >=[address] [facility] Comment on above: Order Comment: Nichole men Type: BLOOD SPECIMEN [facility] Address: [address] [place] [address] Result Comment: Shelley mated Glomerular Filtration Rate [...] accurately reflect actual GFR. Performed By: #### 5 8410-2 #### [facility] CLIA [id number] [address] [place] [address] [place] Glucose [Mass/Vol] 93 mg/dL Normal 74-99 [facility] Comment on above: Order Comment: Nichole men Type: BLOOD SPECIMEN [facility] Address: [address] [place] [address] Result Comment: The [place] [employer] (ADA) provides guidance for cutoff [...] Standards of Medical Care in Diabetes 2016, [place] [employer]. Diabetes Care. 2016.39(Suppl 1). Performed By: #### 5 8410-2 #### [facility] CLIA [id number] [address] [place] [address] [place] Potassium [Moles/Vol] 4.4 mmol/L Normal 3.7-5.1 [facility] Comment on above: Order Comment: Nichole becerra Type: BLOOD SPECIMEN [facility] Address: [address] [place] [address] Performed By: #### 5 8410-2 #### [facility] CLIA [id number] [address] [place] [address] [place] Protein [Mass/Vol] 5.7 g/dL Low 6.3-8.0 [facility] Comment on above: Order Comment: Nichole becerra Type: BLOOD SPECIMEN [facility] Address: [address] [place] [address] Performed By: #### 5 8410-2 #### [facility] CLIA [id number] [facility] [place] [address] [place] Sodium [Moles/Vol] 140 mmol/L Normal 136-144 [facility] Comment on above: Order Comment: Nichole becerra Type: BLOOD SPECIMEN [facility] Address: [address] [place] [address] Performed By: #### 5 8410-2 #### [facility] CLIA [id number] [address] [place] [address] [place] Urea nitrogen [Mass/Vol] 19 mg/dL Normal 7-[address] [facility] Comment on above: Order Comment: Speci men Type: BLOOD SPECIMEN [facility] Address: [address] [place] [address] Performed By: #### 5 8410-2 #### [facility] CLIA [id number] [address] [place] [address] [place] CBC panel Auto (Bld)on 08-25 Erythrocyte distribution width (RBC) [Ratio] 12.9 % Normal 11.5-15.[address] [facility] Comment on above: Order Comment: Speci men Type: BLOOD SPECIMEN [facility] Address: [address] [place] [address] Performed By: #### 5 8410-2 #### [facility] CLIA [id number] [address] [place] [address] [place] Hematocrit (Bld) [Volume fraction] 37.8 % Normal 36.0-46.[address] [facility] Comment on above: Order Comment: Speci men Type: BLOOD SPECIMEN [facility] Address: [address] [place] [address] Performed By: #### 5 8410-2 #### [facility] CLIA [id number] [address] [place] [address] [place] Hemoglobin (Bld) [Mass/Vol] 12.8 g/dL Normal 11.5-15.[address] [facility] Comment on above: Order Comment: Speci men Type: BLOOD SPECIMEN [facility] Address: [address] [place] [address] Performed By: #### 5 8410-2 #### [facility] CLIA [id number] [address] [place] [address] [place] MCH (RBC) [Entitic mass] 29.9 pg Normal 26.0-34.[address] [facility] Comment on above: Order Comment: Speci men Type: BLOOD SPECIMEN [facility] Address: [address] [place] [address] Performed By: #### 5 8410-2 #### [facility] CLIA [id number] [address] [place] [address] [place] MCHC (RBC) [Mass/Vol] 33.9 g/dL Normal 30.5-36.0 [facility] Comment on above: Order Comment: Speci men Type: BLOOD SPECIMEN [facility] Address: [address] [place] [address] Performed By: #### 5 8410-2 #### [facility] CLIA [id number] [address] [place] [address] [place] MCV (RBC) [Entitic vol] 88.3 fL Normal 80.0-100.[address] [facility] Comment on above: Order Comment: Speci men Type: BLOOD SPECIMEN [facility] Address: [address] [place] [address] Performed By: #### 5 8410-2 #### [facility] CLIA [id number] [address] [place] [address] [place] Nucleated RBC (Bld) [#/Vol] 10*3/uL Normal <0.[address] [facility] Comment on above: Order Comment: Speci men Type: BLOOD SPECIMEN [facility] Address: [address] [place] [address] Performed By: #### 5 8410-2 #### [facility] CLIA [id number] [address] [place] [address] [place] Platelet mean volume (Bld) [Entitic vol] 10.1 fL Normal 9.0-12.[address] [facility] Comment on above: Order Comment: Speci men Type: BLOOD SPECIMEN [facility] Address: [address] [place] [address] Performed By: #### 5 8410-2 #### [facility] CLIA [id number] [address] [place] [address] [place] Platelets (Bld) [#/Vol] 173 10*3/uL Normal 150-[address] [facility] Comment on above: Order Comment: Speci men Type: BLOOD SPECIMEN [facility] Address: [address] [place] [address] Performed By: #### 5 8410-2 #### [facility] CLIA [id number] [address] [place] [address] [place] RBC (Bld) [#/Vol] 4.28 10*6/uL Normal 3.90-5.20 [facility] Comment on above: Order Comment: Speci men Type: BLOOD SPECIMEN [facility] Address: [address] [place] [address] Performed By: #### 5 8410-2 #### [facility] CLIA [id number] [address] [place] [address] [place] WBC (Bld) [#/Vol] 6.38 10*3/uL Normal 3.70-11.00 [facility] Comment on above: Order Comment: Speci men Type: BLOOD SPECIMEN [facility] Address: [address] [place] [address] Performed By: #### 5 8410-2 #### [facility] CLIA [id number] [address] [place] [address] [place] Comprehensive metabolic 2000 panelon 08-25-2023 Albumin [Mass/Vol] 3.4 g/dL Low 3.9-4.9 [facility] Comment on above: Order Comment: Speci men Type: BLOOD SPECIMEN [facility] Address: [address] [place] [address] Performed By: #### 5 8410-2 #### [facility] CLIA [id number] [facility] [place] [address] [place] ALP [Catalytic activity/Vol] 48 U/L Normal 34-[address] [facility] Comment on above: Order Comment: Speci men Type: BLOOD SPECIMEN [facility] Address: [address] [place] [address] Performed By: #### 5 8410-2 #### [facility] CLIA [id number] [address] [place] [id number] [place] ALT [Catalytic activity/Vol] 26 U/L Normal 7-[address] [facility] Comment on above: Order Comment: Speci men Type: BLOOD SPECIMEN [facility] Address: [address] [place] [address] Performed By: #### 5 8410-2 #### [facility] CLIA [id number] [address] [place] [address] [place] Anion gap [Moles/Vol] 10 mmol/L Normal 9-18 [facility] Comment on above: Order Comment: Speci men Type: BLOOD SPECIMEN [facility] Address: [address] [place] [address] Performed By: #### 5 8410-2 #### [facility] CLIA [id number] [address] [place] [address] [place] AST [Catalytic activity/Vol] 23 U/L Normal 13-[address] [facility] Comment on above: Order Comment: Speci men Type: BLOOD SPECIMEN [facility] Address: [address] [place] [address] Performed By: #### 5 8410-2 #### [facility] CLIA [id number] [address] [place] [address] [place] Bilirubin [Mass/Vol] 0.9 mg/dL Normal 0.2-1.3 [facility] Comment on above: Order Comment: Speci men Type: BLOOD SPECIMEN [facility] Address: [address] [place] [address] Performed By: #### 5 8410-2 #### [facility] CLIA [id number] [address] [place] [address] [place] Calcium [Mass/Vol] 9.0 mg/dL Normal 8.5-10.2 [facility] Comment on above: Order Comment: Speci men Type: BLOOD SPECIMEN [facility] Address: [address] [place] [address] Performed By: #### 5 8410-2 #### [facility] CLIA [id number] [address] [place] [address] [place] Chloride [Moles/Vol] 97 mmol/L Normal 97-105 [facility] Comment on above: Order Comment: Speci men Type: BLOOD SPECIMEN [facility] Address: [address] [place] [address] Performed By: #### 5 8410-2 #### [facility] CLIA [id number] [address] [place] [address] [place] CO2 [Moles/Vol] 29 mmol/L Normal 22-[address] [facility] Comment on above: Order Comment: Speci men Type: BLOOD SPECIMEN [facility] Address: [address] [place] [address] Performed By: #### 5 8410-2 #### [facility] CLIA [id number] [address] [place] [address] [place] Creatinine [Mass/Vol] 1.02 mg/dL High 0.58-0.96 [facility] Comment on above: Order Comment: Speci men Type: BLOOD SPECIMEN [facility] Address: [address] [place] [address] Performed By: #### 5 8410-2 #### [facility] CLIA [id number] [address] [place] [address] [place] Creatinine and Glomerular filtration rate.predicted panel (S/P/Bld) 57 mL/min/1.73m??? Low >=[address] [facility] Comment on above: Order Comment: Nichole becerra Type: BLOOD SPECIMEN [facility] Address: [address] [place] [address] Result Comment: Shelley mated Glomerular Filtration Rate [...] accurately reflect actual GFR. Performed By: #### 5 8410-2 #### [facility] CLIA [id number] [address] [place] [address] [place] Glucose [Mass/Vol] 84 mg/dL Normal 74-99 [facility] Comment on above: Order Comment: Nichole becerra Type: BLOOD SPECIMEN [facility] Address: [address] [place] [address] Result Comment: The [place] [employer] (ADA) provides guidance for cutoff [...] Standards of Medical Care in Diabetes 2016, [place] [employer]. Diabetes Care. 2016.39(Suppl 1). Performed By: #### 5 8410-2 #### [facility] CLIA [id number] [address] [place] [address] [place] Potassium [Moles/Vol] 3.4 mmol/L Low 3.7-5.1 [facility] Comment on above: Order Comment: Nichole becerra Type: BLOOD SPECIMEN [facility] Address: [address] [place] [address] Performed By: #### 5 8410-2 #### [facility] CLIA [id number] [address] [place] [address] [place] Protein [Mass/Vol] 5.7 g/dL Low 6.3-8.0 [facility] Comment on above: Order Comment: Speci men Type: BLOOD SPECIMEN [facility] Address: [address] [place] [address] Performed By: #### 5 8410-2 #### [facility] CLIA [id number] [address] [place] [address] [place] Sodium [Moles/Vol] 136 mmol/L Normal 136-144 [facility] Comment on above: Order Comment: Speci men Type: BLOOD SPECIMEN [facility] Address: [address] [place] [address] Performed By: #### 5 8410-2 #### [facility] CLIA [id number] [address] [place] [address] [place] Urea nitrogen [Mass/Vol] 22 mg/dL High 7-[address] [facility] Comment on above: Order Comment: Speci men Type: BLOOD SPECIMEN [facility] Address: [address] [place] [address] Performed By: #### 5 8410-2 #### [facility] CLIA [id number] [address] [place] [address] [place] Magnesium SerPl-mCncon 08-25 Magnesium [Mass/Vol] 2.2 mg/dL Normal 1.7-2.3 [facility] Comment on above: Order Comment: Speci men Type: BLOOD SPECIMEN [facility] Address: [address] [place] [address] Performed By: #### 5 8410-2 #### [facility] CLIA [id number] [address] [place] [address] [place] POTASSIUM BLDon 08-25-2023 Potassium [Moles/Vol] 4.3 mmol/L Normal 3.7-5.1 [facility] Comment on above: Order Comment: Speci men Type: BLOOD SPECIMEN [facility] Address: [address] [place] [address] Performed By: #### 5 8410-2 #### [facility] CLIA [id number] [address] [facility] [address] [place] US KIDNEY/BLADDERon 08-25-19 24 US KIDNEY/BLADDER * * *Final Report* * * DATE OF EXAM: Aug 25 2023 10:32AM [facility] 1055 - US KIDNEY/BLADDER / PROCEDURE REASON: [...] Bladder: Normal sonographic appearance. IMPRESSION: NO HYDRONEPHROSIS. [employer] Specialist: PSCB Transcribe Date/Time: Aug 25 2023 10:35A Dictated by : NANCY YOUNGBLOOD MD This examination was interpreted and the report reviewed and electronically signed by: NANCY YOUNGBLOOD MD on Aug 25 2023 10:38AM EST [id number] N Normal [facility] CBC W Auto Differential pane l (Bld)on 08-24-2023 Basophils (Bld) [#/Vol] 0.03 10*3/uL Normal <0.[address] [facility] Comment on above: Order Comment: Speci men Type: BLOOD SPECIMEN [facility] Address: [address] [place] [address] Performed By: #### 5 8410-2 #### [facility] CLIA [id number] [address] [place] [address] [place] Basophils/100 WBC (Bld) 0.4 % Normal [facility] Comment on above: Order Comment: Speci men Type: BLOOD SPECIMEN [facility] Address: [address] [place] [address] Performed By: #### 5 8410-2 #### [facility] CLIA [id number] [address] [place] [address] [place] Differential cell count method Nom (Bld) Auto Normal [facility] Comment on above: Order Comment: Speci men Type: BLOOD SPECIMEN [facility] Address: [address] [place] [address] Performed By: #### 5 8410-2 #### [facility] CLIA [id number] [address] [place] [address] [place] Eosinophils (Bld) [#/Vol] 0.03 10*3/uL Normal <0.[address] [facility] Comment on above: Order Comment: Speci men Type: BLOOD SPECIMEN [facility] Address: [address] [place] [address] Performed By: #### 5 8410-2 #### [facility] CLIA [id number] [address] [place] [address] [place] Eosinophils/100 WBC (Bld) 0.4 % Normal [facility] Comment on above: Order Comment: Speci men Type: BLOOD SPECIMEN [facility] Address: [address] [place] [address] Performed By: #### 5 8410-2 #### [facility] CLIA [id number] [address] [place] [address] [place] Erythrocyte distribution width (RBC) [Ratio] 12.7 % Normal 11.5-15.[address] [facility] Comment on above: Order Comment: Speci men Type: BLOOD SPECIMEN [facility] Address: [address] [place] [address] Performed By: #### 5 8410-2 #### [facility] CLIA [id number] [address] [place] [address] [place] Hematocrit (Bld) [Volume fraction] 40.4 % Normal 36.0-46.[address] [facility] Comment on above: Order Comment: Speci men Type: BLOOD SPECIMEN [facility] Address: [address] [place] [address] Performed By: #### 5 8410-2 #### [facility] CLIA [id number] [address] [place] [address] [place] Hemoglobin (Bld) [Mass/Vol] 13.2 g/dL Normal 11.5-15.[address] [facility] Comment on above: Order Comment: Speci men Type: BLOOD SPECIMEN [facility] Address: [address] [place] [address] Performed By: #### 5 8410-2 #### [facility] CLIA [id number] [address] [place] [address] [place] Immature granulocytes (Bld) [#/Vol] 10*3/uL Normal <0.[address] [facility] Comment on above: Order Comment: Speci men Type: BLOOD SPECIMEN [facility] Address: [address] [place] [address] Performed By: #### 5 8410-2 #### [facility] CLIA [id number] [address] [place] [address] [place] Immature granulocytes/100 WBC (Bld) 0.3 % Normal [facility] Comment on above: Order Comment: Speci men Type: BLOOD SPECIMEN [facility] Address: [address] [place] [address] Performed By: #### 5 8410-2 #### [facility] CLIA [id number] [address] [place] [address] [place] Lymphocytes (Bld) [#/Vol] 1.73 10*3/uL Normal 1.00-4.[address] [facility] Comment on above: Order Comment: Speci men Type: BLOOD SPECIMEN [facility] Address: [address] [place] [address] Performed By: #### 5 8410-2 #### [facility] CLIA [id number] [address] [place] [address] [place] Lymphocytes/100 WBC (Bld) 23.4 % Normal [facility] Comment on above: Order Comment: Speci men Type: BLOOD SPECIMEN [facility] Address: [address] [place] [address] Performed By: #### 5 8410-2 #### [facility] CLIA [id number] [address] [place] [address] [place] MCH (RBC) [Entitic mass] 29.3 pg Normal 26.0-34.[address] [facility] Comment on above: Order Comment: Speci men Type: BLOOD SPECIMEN [facility] Address: [address] [place] [address] Performed By: #### 5 8410-2 #### [facility] CLIA [id number] [address] [place] [address] [place] MCHC (RBC) [Mass/Vol] 32.7 g/dL Normal 30.5-36.0 [facility] Comment on above: Order Comment: Speci men Type: BLOOD SPECIMEN [facility] Address: [address] [place] [address] Performed By: #### 5 8410-2 #### [facility] CLIA [id number] [address] [place] [address] [place] MCV (RBC) [Entitic vol] 89.8 fL Normal 80.0-100.[address] [facility] Comment on above: Order Comment: Speci men Type: BLOOD SPECIMEN [facility] Address: [address] [place] [address] Performed By: #### 5 8410-2 #### [facility] CLIA [id number] [address] [place] [address] [place] Monocytes (Bld) [#/Vol] 0.77 10*3/uL Normal <0.[address] [facility] Comment on above: Order Comment: Speci men Type: BLOOD SPECIMEN [facility] Address: [address] [place] [address] Performed By: #### 5 8410-2 #### [facility] CLIA [id number] [address] [place] [address] [place] Monocytes/100 WBC (Bld) 10.4 % Normal [facility] Comment on above: Order Comment: Speci men Type: BLOOD SPECIMEN [facility] Address: [address] [place] [address] Performed By: #### 5 8410-2 #### [facility] CLIA [id number] [address] [place] [address] [place] Neutrophils (Bld) [#/Vol] 4.82 10*3/uL Normal 1.45-7.[address] [facility] Comment on above: Order Comment: Speci men Type: BLOOD SPECIMEN [facility] Address: [address] [place] [address] Performed By: #### 5 8410-2 #### [facility] CLIA [id number] [address] [place] [address] [place] Neutrophils/100 WBC (Bld) 65.1 % Normal [facility] Comment on above: Order Comment: Speci men Type: BLOOD SPECIMEN [facility] Address: [address] [place] [address] Performed By: #### 5 8410-2 #### [facility] CLIA [id number] [address] [place] [address] [place] Nucleated RBC (Bld) [#/Vol] 10*3/uL Normal <0.[address] [facility] Comment on above: Order Comment: Speci men Type: BLOOD SPECIMEN [facility] Address: [address] [place] [address] Performed By: #### 5 8410-2 #### [facility] CLIA [id number] [address] [place] [address] [place] Nucleated RBC/100 WBC (Bld) [Ratio] 0.0 /100 WBC Normal [facility] Comment on above: Order Comment: Speci men Type: BLOOD SPECIMEN [facility] Address: [address] [place] [address] Performed By: #### 5 8410-2 #### [facility] CLIA [id number] [address] [place] [address] [place] Platelet mean volume (Bld) [Entitic vol] 10.4 fL Normal 9.0-12.[address] [facility] Comment on above: Order Comment: Speci men Type: BLOOD SPECIMEN [facility] Address: [address] [place] [address] Performed By: #### 5 8410-2 #### [facility] CLIA [id number] [address] [place] [address] [place] Platelets (Bld) [#/Vol] 201 10*3/uL Normal 150-[address] [facility] Comment on above: Order Comment: Speci men Type: BLOOD SPECIMEN [facility] Address: [address] [place] [address] Performed By: #### 5 8410-2 #### [facility] CLIA [id number] [address] [id number] [address] [place] RBC (Bld) [#/Vol] 4.50 10*6/uL Normal 3.90-5.20 [facility] Comment on above: Order Comment: Speci men Type: BLOOD SPECIMEN [facility] Address: [address] [place] [address] Performed By: #### 5 8410-2 #### [facility] CLIA [id number] [address] [place] [address] [place] WBC (Bld) [#/Vol] 7.40 10*3/uL Normal 3.70-11.00 [facility] Comment on above: Order Comment: Speci men Type: BLOOD SPECIMEN [facility] Address: [address] [place] [address] Performed By: #### 5 8410-2 #### [facility] CLIA [id number] [address] [place] [address] OF [place] CNPJayde 08-24-2023 [facility] HARJIT ASENCIO I ([id number]) 1950 F Date Time Provider Department 08/24/23 MARGARET HAWKINS [facility] During your visit today, we recorded the following information about you: Margaret Hawkins APRN.[employer] HAND 08/24/2023 6:29 AM Signed [facility] Inbound Phone Encounter DATE of SERVICE: 08/24/2023 TIME of SERVICE: 6:20 AM Status: Needs follow-up Service/Provider: CTS/Dr. Sorto Reason for call: Ms. Asencio is [...] heard from anyone from either office. Contact information:[phone] Resolution: Informed patient I do not have [...] attempt to reach their offices. Margaret Hawkins APRN.ROLL[employer] HAND Date of Resolution: 08/24/2023 Time of Resolution [...] Encounter Status:Closed by MARGARET HAWKINS on 08/24/23 [facility] HARJIT ASENCIO I ([id number]) 1950 F Date Time Provider Department 08/24/23 [...] heart failure (HCC) [I50.9] Order(s):[facility] REQUEST ([place], [place]) [[id number]] Order #: [id number]: 1 Prescriptions as of 08/24/2023 - apixaban [...] Status:Closed by JUNITO MENDES on 08/24/23 Normal [facility] metabolic 2000 panelon 08-24-2023 Albumin [Mass/Vol] 3.8 g/dL Low 3.9-4.9 [facility] Comment on above: Order Comment: Speci men Type: BLOOD SPECIMEN [facility] Address: [address] [place] [address] Performed By: #### 2 4323-8 #### [facility] CLIA [id number] [address] [place] [address] [place] ALP [Catalytic activity/Vol] 61 U/L Normal 34-[address] [facility] Comment on above: Order Comment: Speci men Type: BLOOD SPECIMEN [facility] Address: [address] [place] [address] Performed By: #### 2 4323-8 #### [facility] CLIA [id number] [address] [place] [address] [place] ALT [Catalytic activity/Vol] 34 U/L Normal 7-[address] [facility] Comment on above: Order Comment: Speci men Type: BLOOD SPECIMEN [facility] Address: [address] [place] [address] Performed By: #### 2 4323-8 #### [facility] CLIA [id number] [address] [place] [address] [place] Anion gap [Moles/Vol] 8 mmol/L Low 9-18 [facility] Comment on above: Order Comment: Speci men Type: BLOOD SPECIMEN [facility] Address: [address] [place] [address] Performed By: #### 2 4323-8 #### [facility] CLIA [id number] [address] [place] [address] [place] AST [Catalytic activity/Vol] 27 U/L Normal 13-[address] [facility] Comment on above: Order Comment: Speci men Type: BLOOD SPECIMEN [facility] Address: [address] [place] [address] Performed By: #### 2 4323-8 #### [facility] CLIA [id number] [address] [place] [address] [place] Bilirubin [Mass/Vol] 0.7 mg/dL Normal 0.2-1.3 [facility] Comment on above: Order Comment: Speci men Type: BLOOD SPECIMEN [facility] Address: [address] [place] [address] Performed By: #### 2 4323-8 #### [facility] CLIA [id number] [address] [place] [address] [place] Calcium [Mass/Vol] 9.2 mg/dL Normal 8.5-10.2 [facility] Comment on above: Order Comment: Speci men Type: BLOOD SPECIMEN [facility] Address: [address] [place] [address] Performed By: #### 2 4323-8 #### [facility] CLIA [id number] [address] [place] [address] [place] Chloride [Moles/Vol] 97 mmol/L Normal 97-105 [facility] Comment on above: Order Comment: Speci men Type: BLOOD SPECIMEN [facility] Address: [address] [place] [address] Performed By: #### 2 4323-8 #### [facility] CLIA [id number] [address] [place] [address] [place] CO2 [Moles/Vol] 32 mmol/L High 22-[address] [facility] Comment on above: Order Comment: Speci men Type: BLOOD SPECIMEN [facility] Address: [address] [place] [address] Performed By: #### 2 4323-8 #### [facility] CLIA [id number] [address] [place] [address] [place] Creatinine [Mass/Vol] 1.11 mg/dL High 0.58-0.96 [facility] Comment on above: Order Comment: Nichole becerra Type: BLOOD SPECIMEN [facility] Address: [address] [place] [address] Performed By: #### 2 4323-8 #### [facility] CLIA [id number] [address] [place] [address] [place] Creatinine and Glomerular filtration rate.predicted panel (S/P/Bld) 52 mL/min/1.73m??? Low >=[address] [facility] Comment on above: Order Comment: Nichole becerra Type: BLOOD SPECIMEN [facility] Address: [address] [place] [address] Result Comment: Shelley mated Glomerular Filtration Rate [...] actual GFR. Performed By: #### 2 4323-8 #### [facility] CLIA [id number] [address] [place] [address] [place] Glucose [Mass/Vol] 123 mg/dL High 74-99 [facility] Comment on above: Order Comment: Nichole becerra Type: BLOOD SPECIMEN [facility] Address: [address] [place] [address] Result Comment: The [place] Diabetes Association (ADA) provides guidance for cutoff [...] Standards of Medical Care in Diabetes 2016, [place] [employer]. Diabetes Care. 2016.39(Suppl 1). Performed By: #### 2 4323-8 #### [facility] CLIA [id number] [address] [place] [address] [place] Potassium [Moles/Vol] 3.7 mmol/L Normal 3.7-5.1 [facility] Comment on above: Order Comment: Speci men Type: BLOOD SPECIMEN [facility] Address: [address] [place] [address] Performed By: #### 2 4323-8 #### [facility] CLIA [id number] [address] [place] [address] [place] Protein [Mass/Vol] 6.1 g/dL Low 6.3-8.0 [facility] Comment on above: Order Comment: Speci men Type: BLOOD SPECIMEN [facility] Address: [address] [place] [address] Performed By: #### 2 4323-8 #### [facility] CLIA [id number] [address] [place] [address] [place] Sodium [Moles/Vol] 137 mmol/L Normal 136-144 [facility] Comment on above: Order Comment: Speci men Type: BLOOD SPECIMEN [facility] Address: [address] [place] [address] Performed By: #### 2 4323-8 #### [facility] CLIA [id number] [address] [place] [address] [place] Urea nitrogen [Mass/Vol] 21 mg/dL Normal 7-[address] [facility] Comment on above: Order Comment: Speci men Type: BLOOD SPECIMEN [facility] Address: [address] [place] [address] Performed By: #### 2 4323-8 #### [facility] CLIA [id number] [address] [place] [address] [place] DIGOXIN/LANOXINon 08-24-2023 Digoxin [Mass/Vol] 1.1 ng/mL Normal 0.6-1.2 [facility] Comment on above: Order Comment: Speci men Type: BLOOD SPECIMEN [facility] Address: [address] [place] [address] Result Comment: Prov ided therapeutic concentrations are based on the 2008 ESC Guidelines for the Diagnosis and Treatment of Acute and Chronic Heart Failure. Reference ranges and high/low indicator flags are provided as general guidelines only. The treating physician must determine appropriate target levels/dosing based on the specific clinical situation. Performed By: #### 5 8410-2 #### [facility] CLIA [id number] [address] [place] [address] [place] HISTORY PHYSICALon 4 HISTORY PHYSICAL HNO ID: [id number] Author: AMINA PETERSEN MD Service: Clinical Cardiology Author Type: Physician Type: H&P Filed: 08/26/2023 08:14 Note Text: [facility] CARDIOVASCULAR MEDICINE HISTORY AND PHYSICAL (Template ID [id number]) Harjit Asencio [id number] PRIMARY SERVICE: Cardiovascular Medicine: Clinical Cardiology DATE OF ADMISSION: 08/24/2023 CHIEF COMPLAINT Asymptomatic, Mild dyspnea on exertion HISTORY OF PRESENT ILLNESS Harjit Asencio is a 73 year old female [...] with persistent Afib. She initially presented to [facility] Farshad Ng with symptoms of urinary outlet [...] After discharge she underwent a follow up HAROON with Dr. Henriquez on 07/21/23 who found [...] dayDisp: 1 TubeRfl: 11 tamsulosin 0.4 mg [id number] 1 capsule by mouth daily at bedtime.Disp: 30 capsuleRfl: 3 (Patient n (more content not included)... Normal [facility] URINALYSIS, DIPSTICK ONLYon 08-24-2023 Bilirubin Ql (U) Negative Normal Negative Lavonne mcmillan [facility] Comment on above: Order Comment: Speci men Type: URINE SPECIMENOrdering Facility: [facility] Address: [address] [place] [address] Performed By: #### U A ####[facility] [id number] [facility] [id number] [address] [place] Clarity (Unsp spec) Cloudy Abnormal Clear [facility] Comment on above: Order Comment: Speci men Type: URINE SPECIMENOrdering Facility: [facility] Address: [address] [place] [address] Performed By: #### U A ####[facility] [id number] [place] [address] [place] Color (U) Yellow Normal Yellow [facility] Comment on above: Order Comment: Speci men Type: URINE SPECIMENOrdering Facility: [facility] Address: [address] [place] [address] Performed By: #### U A ####[facility] [id number] [place] [address] [place] Glucose Test strip (U) [Mass/Vol] Negative Normal Negative [facility] Comment on above: Order Comment: Speci men Type: URINE SPECIMENOrdering Facility: [facility] Address: [address] [place] [address] Performed By: #### U A ####[facility] [id number] [place] [address] [place] Hemoglobin Ql (U) Trace Abnormal Negative [facility] Comment on above: Order Comment: Speci men Type: URINE SPECIMENOrdering Facility: [facility] Address: [address] [place] [address] Performed By: #### U A ####[facility] [id number] [place] [address] [place] Ketones Ql (U) Trace Abnormal Negative [facility] Comment on above: Order Comment: Speci men Type: URINE SPECIMENOrdering Facility: [facility] Address: [address] [place] [address] Performed By: #### U A ####[facility] [id number] [place] [address] [place] Leukocyte esterase Test strip Ql (U) 1+ Abnormal Negative [facility] Comment on above: Order Comment: Speci men Type: URINE SPECIMENOrdering Facility: [facility] Address: [address] [place] [address] Performed By: #### U A ####[facility] [id number] [place] [address] [place] Nitrite Ql (U) Negative Normal Negative [facility] Comment on above: Order Comment: Speci men Type: URINE SPECIMENOrdering Facility: [facility] Address: [address] [place] [address] Performed By: #### U A ####[facility] [id number] [place] [address] [place] pH (U) 5.5 [pH] Normal <8.[address] [facility] Comment on above: Order Comment: Speci men Type: URINE SPECIMENOrdering Facility: [facility] Address: [address] [place] [address] Performed By: #### U A ####[facility] [id number] [place] [address] [place] Protein (U) [Mass/Vol] 1+ Abnormal Negative Cl [facility] Comment on above: Order Comment: Speci men Type: URINE SPECIMENOrdering Facility: [facility] Address: [address] [place] [address] Performed By: #### U A ####[facility] [id number] [place] [address] [place] Specific gravity (U) [Rel density] 1.021 Normal 1.005-1.[address] [facility] Comment on above: Order Comment: Speci men Type: URINE SPECIMENOrdering Facility: [facility] Address: [address] [place] [address] Performed By: #### U A ####[facility] [id number] [place] [address] [place] Urobilinogen Ql (U) 1.0 EU/dL Normal 0.2-1.0 EU/dL [facility] Comment on above: Order Comment: Speci men Type: URINE SPECIMENOrdering Facility: [facility] Address: [address] [place] [address] Performed By: #### U A ####[facility] [id number] [place] [address] [place] CBC panel Auto (Bld)on 08-23 Erythrocyte distribution width (RBC) [Ratio] 12.9 % Normal 11.5-15.[address] [facility] Comment on above: Order Comment: Speci men Type: BLOOD SPECIMENOrdering Facility: [facility] Address: [address] [place] [address] Performed By: #### 5 8410-2 ####[facility] [id number] [address] [place] Hematocrit (Bld) [Volume fraction] 43.4 % Normal 36.0-46.[address] [facility] Comment on above: Order Comment: Speci men Type: BLOOD SPECIMENOrdering Facility: [facility] Address: [address] [place] [address] Performed By: #### 5 8410-2 ####[facility] [id number] [address] [place] Hemoglobin (Bld) [Mass/Vol] 14.4 g/dL Normal 11.5-15.[address] [facility] Comment on above: Order Comment: Speci men Type: BLOOD SPECIMENOrdering Facility: [facility] Address: [address] [place] [address] Performed By: #### 5 8410-2 ####[facility] [id number] [place] [address] [place] MCH (RBC) [Entitic mass] 30.3 pg Normal 26.0-34.[address] [facility] Comment on above: Order Comment: Speci men Type: BLOOD SPECIMENOrdering Facility: [facility] Address: [address] [place] [address] Performed By: #### 5 8410-2 ####[facility] [id number] [place] [address] [place] MCHC (RBC) [Mass/Vol] 33.2 g/dL Normal 30.5-36.0 [facility] Comment on above: Order Comment: Speci men Type: BLOOD SPECIMENOrdering Facility: [facility] Address: [address] [place] [address] Performed By: #### 5 8410-2 ####[facility] [id number] [place] [address] [place] MCV (RBC) [Entitic vol] 91.4 fL Normal 80.0-100.[address] [facility] Comment on above: Order Comment: Speci men Type: BLOOD SPECIMENOrdering Facility: [facility] Address: [address] [place] [address] Performed By: #### 5 8410-2 ####[facility] [id number] [place] [address] [place] Nucleated RBC (Bld) [#/Vol] 10*3/uL Normal <0.[address] [facility] Comment on above: Order Comment: Speci men Type: BLOOD SPECIMENOrdering Facility: [facility] Address: [address] [place] [address] Performed By: #### 5 8410-2 ####[facility] [id number] [place] [address] [place] Platelet mean volume (Bld) [Entitic vol] 10.5 fL Normal 9.0-12.[address] [facility] Comment on above: Order Comment: Speci men Type: BLOOD SPECIMENOrdering Facility: [facility] Address: [address] [place] [address] Performed By: #### 5 8410-2 ####[facility] [id number] [place] [address] [place] Platelets (Bld) [#/Vol] 215 10*3/uL Normal 150-[address] [facility] Comment on above: Order Comment: Speci men Type: BLOOD SPECIMENOrdering Facility: [facility] Address: [address] [place] [address] Performed By: #### 5 8410-2 ####[facility] [id number] [place] [address] [place] RBC (Bld) [#/Vol] 4.75 10*6/uL Normal 3.90-5.20 [facility] Comment on above: Order Comment: Speci men Type: BLOOD SPECIMENOrdering Facility: [facility] Address: [address] [place] [address] Performed By: #### 5 8410-2 ####[facility] [id number] [place] [address] [place] WBC (Bld) [#/Vol] 6.24 10*3/uL Normal 3.70-11.00 [facility] Comment on above: Order Comment: Speci men Type: BLOOD SPECIMENOrdering Facility: [facility] Address: [address] [place] [address] Performed By: #### 5 8410-2 ####[facility] [id number] [place] [address] [place] CNOVon 08-23-2023 CNOV Office Visit ([facility] ) HARJIT ASENCIO I ([id number]) 1950 F Date Time Provider Department 08/23/23 3:20 PM MICHELINE SORTO TOHSMN During your visit today, we recorded the following information about you: Micheline Sorto MD 08/24/2023 8:19 AM Signed [facility] [place] DEPARTMENT OF CARDIAC SURGERY OUTPATIENT VISIT PCP: Peggy Nazario MD [address] [place] [address] Referring Physician: Micheline Sorto [address] [facility] [address] Patient Type: New Visit to Determine Surgery: Yes HPI: Ms. Harjit Asencio is a 73 year old female [...] valve is noncalcified. Normal caliber thoracic aorta. University Extension Specialist: LILIANA Transcribe Date/Time: Aug 23 2023 11:20A [...] better seen and more prominent on outside HAROON 07/21/23. - There is moderately severe (3+) [...] Micheline Sorto MD Referring Provider: MICHELINE SORTO [[id number]] Allergies As of Date: 08/23/2023 Noted Allergy [...] Order(s):CARDIOTHORAC IC PREOP EVALUATION [] Order #: [id number]: 1 Prescriptions as of 08/24/2023 - apixaban [...] orally disintegrat (more content not included)... Normal [facility] Office Visit ([facility] ) HARJIT ASENCIO I ([id number]) 1950 F Date Time Provider Department 08/23/23 7:45 AM ALEA HARLEY CARC[facility] During your visit today, we recorded the following information about you: Pulse Blood pressure Weight Height 47/minute 107/58 52.2 kg 1.651 m Alea Harley MD 08/23/2023 12:58 PM Signed [facility] [place] [facility] Department of Cardiovascular Medicine SECTION OF CLINICAL CARDIOLOGY OUTPATIENT VISIT DATE August 23, 2023 OUTPATIENT VISIT TYPE NEW PRIMARY CARE PHYSICIAN: Peggy Nazario MD [address] [place] [address] REFERRING PHYSICIAN: Micheline Sorto [address] [facility] [address] CHIEF COMPLAINT: Mitral regurgitation. HISTORY OF PRESENT [...] emptying her bladder. When seen in the [facility] ER, she was found to be in [...] After discharge she underwent a follow up HAROON with Dr. Henriquez who then found her EF to be 40%, with what he interpreted to be severe, central MR - although ERO calculation was more conservative at 0.26 cm2 without PV flow reversal. On medical management that includes dig, low dose carvedilol, DOAC with apixaban, and low dose losartan she feels better. She is being referred by her private planner, Dr.D. Henriquez for consideration of MVr. As [...] is a 73 year old female from [place], [place] here today for cardiovascular evaluation related to severe mitral and tricuspid regurgitation. She is currently consulted with Dr. Sorto in cardiac surgery for potential surgical intervention. Harjit has a significant medical history of GERD, [...] disease Father (more content not included)... Normal [facility] CREATININE BLDon 08-23-2023 Creatinine [Mass/Vol] 0.97 mg/dL High 0.58-0.96 [facility] Comment on above: Order Comment: Speci men Type: BLOOD SPECIMEN [facility] Address: [address] [place] [address] Performed By: #### 5 8410-2 #### [facility] CLIA [id number] [address] [place] [address] [place] Creatinine and Glomerular filtration rate.predicted panel (S/P/Bld) 61 mL/min/1.73m??? Normal >=[address] [facility] Comment on above: Order Comment: Speci men Type: BLOOD SPECIMEN [facility] Address: [address] [place] [address] Result Comment: Shelley mated Glomerular Filtration Rate [...] accurately reflect actual GFR. Performed By: #### 5 8410-2 #### [facility] CLIA [id number] [address] [place] [address] [place] CTA CHEST (GATED) [...] AORTIC DIMENSIONS: AORTIC ROOT: 3.5 cm measured ifqdo-nj-eemvo Area cm2 mid ASCENDING THORACIC AORTA: 2.9 cm Area cm2 mid DESCENDING THORACIC AORTA: 2.2 cm limited upper ABDOMEN: unremarkable BONES: Unremarkable Recruiting Consultant (topogram) images: No additional findings. IMPRESSION: Dilated left ventricle, biatrial enlargement. Mitral valve is noncalcified. Normal caliber thoracic aorta. University Extension Specialist: PSCB Transcribe Date/Time: Aug 23 2023 11:20A Dictated by : SARAH CARNEY MD This examination was interpreted and the report reviewed and electronically signed by: SARAH CARNEY MD on Aug 23 2023 12:14PM EST [id number] N Normal [facility] Comprehensive metabolic 2000 panelon 08-23-2023 Albumin [Mass/Vol] 4.4 g/dL Normal 3.9-4.9 [facility] Comment on above: Order Comment: Speci mariam Type: BLOOD SPECIMEN [facility] Address: [address] [place] [address] Performed By: #### 5 8410-2 #### [facility] CLIA [id number] [address] [place] [address] [place] ALP [Catalytic activity/Vol] 66 U/L Normal 34-[address] [facility] Comment on above: Order Comment: Césari mariam Type: BLOOD SPECIMEN [facility] Address: [address] [place] [address] Performed By: #### 5 8410-2 #### [facility] CLIA [id number] [address] [place] [address] [place] ALT [Catalytic activity/Vol] 40 U/L High 7-[address] [facility] Comment on above: Order Comment: Speci men Type: BLOOD SPECIMEN [facility] Address: [address] [place] [address] Performed By: #### 5 8410-2 #### [facility] CLIA [id number] [address] [place] [address] [place] Anion gap [Moles/Vol] 9 mmol/L Normal 9-18 [facility] Comment on above: Order Comment: Speci men Type: BLOOD SPECIMEN [facility] Address: [address] [place] [address] Performed By: #### 5 8410-2 #### [facility] CLIA [id number] [address] [place] [address] [place] AST [Catalytic activity/Vol] 31 U/L Normal 13-[address] [facility] Comment on above: Order Comment: Speci men Type: BLOOD SPECIMEN [facility] Address: [address] [place] [address] Performed By: #### 5 8410-2 #### [facility] CLIA [id number] [address] [place] [address] [place] Bilirubin [Mass/Vol] 0.8 mg/dL Normal 0.2-1.3 [facility] Comment on above: Order Comment: Speci men Type: BLOOD SPECIMEN [facility] Address: [address] [place] [address] Performed By: #### 5 8410-2 #### [facility] CLIA [id number] [address] [place] [address] [place] Calcium [Mass/Vol] 9.8 mg/dL Normal 8.5-10.2 [facility] Comment on above: Order Comment: Speci men Type: BLOOD SPECIMEN [facility] Address: [address] [place] [address] Performed By: #### 5 8410-2 #### [facility] CLIA [id number] [address] [place] [address] [place] Chloride [Moles/Vol] 98 mmol/L Normal 97-105 [facility] Comment on above: Order Comment: Speci men Type: BLOOD SPECIMEN [facility] Address: [address] [place] [address] Performed By: #### 5 8410-2 #### [facility] CLIA [id number] [address] [place] [address] [place] CO2 [Moles/Vol] 32 mmol/L High 22-[address] [facility] Comment on above: Order Comment: Speci men Type: BLOOD SPECIMEN [facility] Address: [address] [place] [address] Performed By: #### 5 8410-2 #### [facility] CLIA [id number] [address] [place] [address] [place] Creatinine [Mass/Vol] 0.98 mg/dL High 0.58-0.96 [facility] Comment on above: Order Comment: Speci men Type: BLOOD SPECIMEN [facility] Address: [address] [place] [address] Performed By: #### 5 8410-2 #### [facility] CLIA [id number] [address] [place] [address] [place] Creatinine and Glomerular filtration rate.predicted panel (S/P/Bld) 60 mL/min/1.73m??? Normal >=[address] [facility] Comment on above: Order Comment: Speci men Type: BLOOD SPECIMEN [facility] Address: [address] [place] [address] Result Comment: Shelley mated Glomerular Filtration Rate [...] accurately reflect actual GFR. Performed By: #### 5 8410-2 #### [facility] CLIA [id number] [address] [place] [address] [place] Glucose [Mass/Vol] 127 mg/dL High 74-99 [facility] Comment on above: Order Comment: Speci men Type: BLOOD SPECIMEN [facility] Address: [address] [place] [address] Result Comment: The [place] [employer] (ADA) provides guidance for cutoff [...] Standards of Medical Care in Diabetes 2016, [place] [employer]. Diabetes Care. 2016.39(Suppl 1). Performed By: #### 5 8410-2 #### [facility] CLIA [id number] [address] [place] [address] [place] Potassium [Moles/Vol] 4.1 mmol/L Normal 3.7-5.1 [facility] Comment on above: Order Comment: Speci men Type: BLOOD SPECIMEN [facility]ing Facility: [facility] Address: [address] [place] [address] Performed By: #### 5 8410-2 #### [facility] CLIA [id number] [facility] [place] [address] [place] Protein [Mass/Vol] 6.8 g/dL Normal 6.3-8.0 [facility] Comment on above: Order Comment: Speci men Type: BLOOD SPECIMEN Ordering Facility: [facility] Address: [address] [place] [address] Performed By: #### 5 8410-2 #### [facility] CLIA [id number] [facility] [place] [address] [place] Sodium [Moles/Vol] 139 mmol/L Normal 136-144 [facility] Comment on above: Order Comment: Speci men Type: BLOOD SPECIMEN [facility]ing Facility[facility] Address: [address] [place] [address] Performed By: #### 5 8410-2 #### [facility] CLIA [id number] [address] [place] [address] [place] Urea nitrogen [Mass/Vol] 17 mg/dL Normal 7-[address] [facility] Comment on above: Order Comment: Speci men Type: BLOOD SPECIMEN Ordering Facility[facility] Address: [address] [place] [address] Performed By: #### 5 8410-2 #### [facility] CLIA [id number] [address] [place] [id number] 08-23-2023 ECG01 Ventricular Rate : 8 5 BPM Atrial Rate : 250 BPM QRS Duration : 82 ms Q-T Interval : 368 ms QTC Calculation(Bazett) : 437 ms Calculated R Midkiff : 86 degrees Calculated T Midkiff : -51 degrees ATRIAL FIBRILLATION NONSPECIFIC ST AND T WAVE ABNORMALITY , PROBABLY DIGITALIS EFFECT ABNORMAL ECG Confirmed by JOSSE BURKS MD ([id number]) on 09/03/2023 4:14:55 PM NAME : HARJIT ASENCIO PID : [id number] : 1950 Gender : Female Race : ORD : Procedure Date : Aug 23 2023 09:29:39 Edit Date : Sep 03 2023 16:14:57 Diagnosis: ATRIAL FIBRILLATION NONSPECIFIC ST AND T WAVE ABNORMALITY , PROBABLY DIGITALIS EFFECT ABNORMAL ECG Confirmed by JOSSE BURKS MD ([id number]) on 09/03/2023 4:14:55 PM Test Reason : Location : 7 : J24NS Overread By : JOSSE BURKS MD Edited By : JOSSE BURKS MD Referred By : , Acquired by : [id number], Normal [facility] ECHOon 08-23-2023 Echocardiography Echocardiography Report: Transthoracic Echo [facility] J35 Date of service: 08/23/2023 2:15:32 PM UNIT OPERATOR Ordering physician: MICHELINE SORTO Indication: Valvular heart disease Technologist: Dede Watts [facility] Interpreting physician: To Brewer MD PATIENT: Name: MRS. HARJIT ASENCIO : 1950 Age: 73 years Gender: [...] better seen and more prominent on outside HAROON 07/21/23. - There is moderately severe (3+) tricuspid valve regurgitation. - Estimated right ventricular systolic pressure is 44 mmHg consistent with mild pulmonary hypertension. Estimated right atrial pressure is 8 mmHg based on IVC assessment. - The patient has not had a prior CC echocardiographic exam for comparison. * * * Final (Updated) * * * [facility] : [id number] micsSISUID Normal [facility]NP [facility] Natriuretic peptide.B prohormone N-Terminal [Mass/Vol] 3265 pg/mL High <[address] [facility] Comment on above: Order Comment: Speci men Type: BLOOD SPECIMEN [facility] Facility[facility] Address: [address] [place], [place] [address] Performed By: #### 5 8410-2 #### [facility] CLIA [id number] [address] [place] [address] [place] RIGHT HEART CATH REPORTon RIGHT HEART CATH REPORT Name: MRS. HARJIT ASENCIO Age: 73 years : Procedure Date: 08/23/2023 Procedure Start Time: 08/23/2023 12:09:58 PM Procedure Stop Time: 08/23/2023 12:43:39 PM Physcian Name Case Duties Prieto Villalba D.O. Diagnostic Attending Physician Yasir Coronado M.D. Lunchroom Mother INDICATIONS FOR PROCEDURE: Heart failure PROCEDURE: PROCEDURAL [...] Imaging was obtained in AP 0 and PARAG 45 degrees. After examining qualitatively (QCA) and calculating vessel diameter, the optimal sensor placement was determined. Roadmap images were placed for reference. A 0.018 inch steel core ([employer]) wire was inserted and place distal to the target sensor location. The balloon wedge pressure catheter was removed. The CardioMEMS delivery catheter was removed from the sterile packaging and flushed in its original housing. The catheter was pre soaked and agitated according to the eyeglass frames inspector's instructions to activate the hydrophilic coating. The [...] ECG, p (more content not included)... Normal [facility] US CAROTID ARTERIES [facility]on 08-23-2023 US CAROTID ARTERIES [facility] Non-Invasive Vascular Laboratory [facility] J35 Carotid Duplex Bilateral/Complete Date of service/time: 08/23/2023 2:46:04 PM Name: MRS. HARJIT ASENCIO Date of : 1950 Age: 73 [...] and antegrade flow noted. Technologist: Romana Newsome T Ordering physician: MICHELINE SORTO Interpreting physician: Eleonora Moffett MD, RPVI Final [facility] : [id number] sSISUID See Link below for Image Normal [facility]de [facility] HARJIT ASENCIO I ([id number]) 1950 F Date Time Provider Department 08/22/23 PRIETO VILLALBA During your visit today, we recorded the following information about you: Patrica Griffiths, RN 08/22/2023 1:31 PM Signed CARDIOVASCULAR LAB INSTRUCTIONS: [...] Date Reviewed: 10/24/2017 Reviewed by: Eb Goss (Mental Health Program Director), SUPERVISOR DRIED YEAST - Fully Assessed Reason for Visit: Patient [...] Status:Closed by PATRICA GRIFFITHS RN on 08/22/23 [facility] Tele[facility] (bioeng) HARJIT ASENCIO I ([id number]) 1950 F Date Time Provider Department 08/16/23 PRIETO ENCINAS During your visit today, we recorded the following information about you: Maryan Bhardwaj 08/16/2023 12:56 PM Signed Study TItle: Risk Assessment of Stroke Using Non-Invasive Ultrasonic Backscatter from Carotid Plaque (RUNUP) IRB#: [id number] PI: Ruba Villanueva, PhD Phone#: [phone] COORDINATOR/Research Nurse/Dean Of Men: Prieto Encinas, or Maryan Bhardwaj or [phone] Pager: [phone] Recruitment Telephone Contact to introduce the study [...] questions feel free to contact me at [phone]. REMINDER Confirm the scheduled date and time [...] Date Reviewed: 10/24/2017 Reviewed by: Eb Goss (Mental Health Program Director), SUPERVISOR DRIED YEAST - Fully Assessed Reason for Visit: Research [...] Status:Closed by MARYAN BHARDWAJ on 08/16/[address] [facility] Outside Cardiovascularon Outside Cardiovascular [id number] [id number]# 1.00TIFF Normal [facility] Progress Note-Physicianon Progress Note-Physician [id number]#1 .00TIFF Normal [facility] Progress Note-Physician Normal [facility] Comment on above: Result Comment: Elec tronically Signed By: MARTINEZ MCMAHON, Taylor aPtino\.br\Date and Time Signed: 07/05/23 06:48 EST Echocardiogram-Transesophage anamaria 07-28-2023 Echocardiogram-Transes ophageal [id number]# 1.00TIFF [facility] CNPJayde 07-24-2023 [facility] Telephone ([facility]) HARJIT ASENCIO I ([id number]) 1950 F Date Time Provider Department 07/24/23 MICHELINE SORTO [facility] During your visit today, we recorded the following information about you: Katie Nicholson 07/24/2023 10:08 AM Signed Please register insurance Thank you! Cesar Nunn 07/24/2023 10:22 AM Signed IN Allergies [...] Date Reviewed: 10/24/2017 Reviewed by: Eb Goss (Mental Health Program Director), SUPERVISOR DRIED YEAST - Fully Assessed Reason for Visit: Insurance [...] bladder emptying [R33.9] 09/26/2012 Encounter Status:Closed by CESAR NUNN on 07/24/23 [facility] Telephone ([facility]) HARJIT ASENCIO I ([id number]) 1950 F Date Time Provider Department 07/24/23 MICHELINE SORTO [facility] During your visit today, we recorded the following information about you: Katie Nicholson 07/24/2023 11:06 AM Signed LOCAL PATIENT Referral from. Dr. Taylor Henriquez Reason: Mitral AND Tricuspid Valve Repair Testing: Cath, TTE, HAROON AND CT images have been pushed. Reports are under Scanned Docs Karina Watts RN 07/25/2023 2:55 PM Signed Chart reviewed July 25, 2023. File given to Dr. Sorto for his review/plan of care. Harjit Ruiz Elif [id number] 73 year old Diagnosis: Sev MR, Sev [...] and eval with Cardiology and Dr. Sorto. Massotherapist will contact patient with date and let [...] PATIENT SENT SCHEDULE FED X Referring Provider: TAYLOR HENRIQUEZ [[id number]] Allergies As of Date: 07/24/2023 Noted Allergy Reaction ASPIRIN 05/14/2010 14 - Other: See Comments Comments: Patient states causes Bruising. DEMORAL (MEPERIDINE) 05/14/2010 14 - Other: See Comments Comments: Patient does not know if she is allergic but know she is not suppose to take it. LATEX 09/26/2012 2 - Rash 4 - Hives Date Reviewed: 10/24/2017 Reviewed by: Eb Goss (Mental Health Program Director), CALLIE - Fully Assessed Reason for Visit: Referral Information [2403] Consult [173] Primary Visit Diagnosis:Disorder of artery or arteriole (HCC) [I77.9] Other Visit Diagnoses:Non-rheumat ic mitral regurgitation [I34.0] Nonrheumatic tricuspid valve regurgitation [I36.1] Other specified symptoms and signs involving the circulatory and respiratory systems [R09.89] Mitral valve disorder [I05.9] Tricuspid valve disorders, non-rheumatic [I36.9] Order(s):CONSULT TO CARDIOLOGY [9004] Order #: [id number]: 1 FUTURE CARDIOTHORACIC PREOP EVALUATION [] Order #: [id number]: 1 FUTURE ECHO [338268] Order #: [id number]: 1 FUTURE CTA CHEST (GATED) W IVCON [9556596] Order #: [id number] FUTURE CREATININE BLD [SQCRET] Order #: [id number] FUTURE US CAROTID ARTERIES [facility] [7140961] Order #: [id number] FUTURE CARDIAC STRIP ROLLER ORDER [2906610] Order #: [id number]: 1 Prescriptions as of 07/28/2023 - apixaban [...] bladder emptying [R33.9] 09/26/2012 Encounter Status:Closed by KARINA WATTS on 07/28/[address] [facility] Discharge Instructionson Discharge Instructions [id number]# 1.00TIFF [facility] Formson 07-24-2023 Forms [id number] 1 [id number]#1 .00TIFF [facility] Consent for Treatmenton Consent for Treatment [id number] 312 [id number]#1 .00TIFF [facility] Inpatient Clinical Summaryon 07-21-2023 Inpatient Clinical Summary [facility] Inpatient Patient Summaryon 07-21-2023 Inpatient Patient Summary [facility] Patient Education - Texton 1 09-21-2022 Patient Education - Text [facility] Progress Note-Physicianon Progress Note-Physician [facility] Comment on above: Result Comment: Elec tronically Signed By: MARTINEZ MCMAHON, Taylor Patino\.br\Date and Time Signed: 07/21/23 07:09 EST Referrals Officeon 3 Referrals Office [id number] 0 [id number]# 1.00TIFF [facility] Consent for Procedure/Surger yon 07-20-2023 Consent for Procedure/Surgery [id number] #1.00TIFF [facility] Consent for Treatmenton Consent for Treatment [id number]#1 .00TIFF [facility] Heart and Vascular Office/Cl inic Noteon 07-20-2023 Heart and Vascular Office/Clinic Note Normal [facility] Comment on above: Result Comment: Elec tronically Signed By: Taylor HENRIQUEZ MD\.br\Date and Time Signed: 07/20/23 10:38 EST Physician Orderon 07-20-2023 Physician Order [id number] #1.00TIFF Normal [facility] Ambulatory Visit Summaryon 1 09-19-2022 Ambulatory Visit Summary Normal [facility] Patient Educationon 07-19-20 Patient Education Normal [facility] Urology Office/Clinic Noteon 07-19-2023 Urology Office/Clinic Note Normal [facility] Comment on above: Result Comment: Elec tronically Signed By: Micheline BROOKS MD\.br\Date and Time Signed: 07/19/23 16:01 EST\.br\Electronically Co-Signed By: Can Bautista\.br\Date and Time Co-Signed: 07/19/23 15:59 EST Coding Queryon 07-17-2023 Coding Query [facility] ED Note-Physicianon 07-15-20 ED Note-Physician Normal [facility] Comment on above: Result Comment: Elec tronically Signed By: Noe Black PA-C\.br\Date and Time Signed: 07/07/23 15:56 EST\.br\Electronically Co-Signed By: Jeff Cross DO\.br\Date and Time Co-Signed: 07/15/23 06:59 EST Cardiovascular Reporton 06-16 Cardiovascular Report [id number]# 2.00TIFF [facility] Nursing Assessmenton 023 Nursing Assessment [id number]# 1.00TIFF [facility] Discharge Instructionson Discharge Instructions [id number] [id number]# 1.00TIFF [facility] Auto Diffon 07-07-2023 Basophils/100 WBC (Bld) 0.6 % Normal 0.0-2.0 [facility] Comment on above: Order Comment: Order Added by Discern Expert. Performed By: #### 1 5674403, 91334215, 5468940, 27883238, 3215819, 6115869, 73897724 ####[place] [address] [place] [address] Basophils/Leukocytes Auto (Bld) [Pure # fraction] 0.0 E9/L Normal 0.0-0.2 [facility] Comment on above: Order Comment: Order Added by Discern Expert. Performed By: #### 1 1131861, 53499607, 7075262, 54936226, 2678274, 4443064, 60204330 ####[address] [place] [address] Eosinophils/100 WBC (Bld) 1.5 % Normal 0.0-8.0 [facility] Comment on above: Order Comment: Order Added by Discern Expert. Performed By: #### 1 7980432, 20975572, 9792813, 06586301, 1213717, 2259190, 89174157 ####[address] [address] Eosinophils/Leukocytes Auto (Bld) [Pure # fraction] 0.1 E9/L Normal 0.0-0.5 [facility] Comment on above: Order Comment: Order Added by Discern Expert. Performed By: #### 1 6978673, 28371147, 8252511, 23284673, 5416198, 5183143, 75678729 ####[address] [place] [address] Lymphocytes/100 WBC (Bld) 15.3 % Normal 14.0-50.0 [facility] Comment on above: Order Comment: Order Added by Valeria Expert. Performed By: #### 1 0421048, 24866561, 6581779, 61221909, 3952536, 3493058, 52200059 ####[address] [address] Lymphocytes/Leukocytes Auto (Bld) [Pure # fraction] 1.2 E9/L Normal 1.0-4.0 [facility] Comment on above: Order Comment: Order Added by Discern Expert. Performed By: #### 1 8657364, 88120437, 2398638, 98053670, 9755113, 3853823, 17845449 ####[address] [place] [address] Monocytes/100 WBC (Bld) 6.4 % Normal 4.0-14.0 [facility] Comment on above: Order Comment: Order Added by Discern Expert. Performed By: #### 1 4184528, 80293439, 6226934, 07732903, 3936684, 2266807, 31412392 ####[address] [address] Monocytes/Leukocytes Auto (Bld) [Pure # fraction] 0.5 E9/L Normal 0.2-1.0 [facility] Comment on above: Order Comment: Order Added by Discern Expert. Performed By: #### 1 1281029, 80614579, 1740905, 19035391, 5024390, 6079239, 18194180 ####[address] [address] Neutrophils/100 WBC (Bld) 76.2 % High 36.0-75.0 [facility] Comment on above: Order Comment: Order Added by Discern Expert. Performed By: #### 1 4814213, 33279685, 4629161, 27449908, 6287921, 7081209, 58687410 ####[address] [place] [address] Neutrophils/Leukocytes Auto (Bld) [Pure # fraction] 6.1 E9/L Normal 2.0-7.5 [facility] Comment on above: Order Comment: Order Added by Valeria Expert. Performed By: #### 1 1925102, 70834467, 1703192, 65038823, 8539589, 4515574, 93735793 ####[place] [address] [facility] [place] [address] BMPon 07-07-2023 Creatinine [Mass/Vol] 0.8 mg/dL Normal 0.5-1.3 [facility] Comment on above: Performed By: #### 1 3302760, 33190198, 4754189, 29164421, 3798404, 5798591, 94647593 ####[facility] [address] [place] [address] Urea nitrogen [Mass/Vol] 13 mg/dL Normal 5-21 [facility] Comment on above: Performed By: #### 1 0485565, 52400668, 2208491, 86755253, 4210276, 1381179, 32757822 ####[facility] [address] [place] [address] Urea nitrogen/Creatinine [Mass ratio] 16 No Units Normal 10-20 [facility] Comment on above: Performed By: #### 1 6430011, 33047712, 8563902, 54870840, 5125496, 6886690, 85666075 ####[facility] [address] [place] [address] Anion gap [Moles/Vol] 14 mmol/L Normal 6-16 [facility] Comment on above: Performed By: #### 1 5450050, 74854702, 2387592, 52989183, 4073530, 5169104, 24317892 ####[facility] [address] [place] [address] Calcium [Mass/Vol] 8.7 mg/dL Low 8.9-11.1 [facility] Comment on above: Performed By: #### 1 2036217, 25917716, 0934717, 26049021, 0403327, 2104923, 23956317 ####[facility] [address] [place] [address] Chloride [Moles/Vol] 100 mmol/L Low 101-111 [facility] Comment on above: Performed By: #### 1 1638760, 53087211, 7363438, 89413657, 6040216, 9677247, 69402952 ####[facility] [address] [place] [address] CO2 [Moles/Vol] 26 mmol/L Normal 21-31 [facility] Comment on above: Performed By: #### 1 3707637, 46000895, 5230021, 72707672, 6740186, 8058623, 18103667 ####[facility] [address] [place] [address] Glucose [Mass/Vol] 137 mg/dL Normal 55-199 [facility] Comment on above: Result Comment: If t his glucose result represents a fasting glucose, interpretation should refer to the following reference range: 55-99 mg/dL Performed By: #### 1 8059113, 58753288, 1513350, 42595484, 6879051, 1857214, 54695859 ####[facility] [address] [place] [address] Potassium [Moles/Vol] 4.3 mmol/L Normal 3.5-5.3 [facility] Comment on above: Performed By: #### 1 1435480, 21182554, 4543094, 00367323, 6424390, 2309537, 51574081 ####[facility] [address] [place] [address] Sodium [Moles/Vol] 136 mmol/L Normal 135-145 [facility] Comment on above: Performed By: #### 1 8800141, 84408612, 4089425, 66782501, 1603019, 8438980, 78464842 ####[facility] [address] [place] [address] BNPon 07-07-2023 Natriuretic peptide B (Bld) [Mass/Vol] 756 pg/mL High 5-80 [facility] Comment on above: Performed By: #### 1 0933520, 08208109, 4829079, 40244031, 9324778, 1076360, 91207087 ####[facility] [address] [place] [address] CBC w/ Auto Diffon Erythrocyte distribution width (RBC) [Ratio] 13.8 % Normal 10.9-14.2 [facility] Comment on above: Performed By: #### 1 8910709, 43046690, 2301698, 66284758, 9124497, 7657405, 13494317 ####[address] [place] [address] Hematocrit (Bld) [Volume fraction] 40.3 % Normal 34.0-46.0 [facility] Comment on above: Performed By: #### 1 5351797, 12080317, 0323217, 70045439, 8603500, 0714270, 41166252 ####[address] [address] Hemoglobin (Bld) [Mass/Vol] 13.0 g/dL Normal 12.0-16.0 [facility] Comment on above: Performed By: #### 1 3139409, 36816250, 6362625, 19338711, 1692498, 5684080, 58667558 ####[address] [place] [address] MCH (RBC) [Entitic mass] 29.2 pg Normal 27.0-34.0 [facility] Comment on above: Performed By: #### 1 6957899, 59556036, 7082173, 23532828, 9238706, 4695886, 73555056 ####[address] [place] [address] MCHC (RBC) [Mass/Vol] 32.3 g/dL Normal 31.4-36.0 [facility] Comment on above: Performed By: #### 1 3119604, 70680206, 7690527, 34656404, 0747764, 0357502, 10055779 ####[address] [address] MCV (RBC) [Entitic vol] 90.2 fL Normal 80.0-100.0 [facility] Comment on above: Performed By: #### 1 5142685, 71474177, 6000837, 38475725, 8045790, 0745931, 67322063 ####[facility] [address] [place] [address] Platelet mean volume (Bld) [Entitic vol] 8.5 fL Normal 6.4-10.8 [facility] Comment on above: Performed By: #### 1 6686192, 02973796, 7433087, 22573199, 7970964, 6136327, 16363401 ####[address] [place] [address] Platelets (Bld) [#/Vol] 291.0 E9/L Normal 150.0-500.0 [facility] Comment on above: Performed By: #### 1 5654687, 42293971, 0819354, 00057778, 3448914, 6986515, 65453168 ####[address] [address] RBC (Bld) [#/Vol] 4.5 E12/L Normal 4.3-5.9 [facility] Comment on above: Performed By: #### 1 1145555, 27351251, 6996524, 46836664, 8643497, 0027530, 35276647 ####[address] [place] [address] WBC corrected for nucl RBC Auto (Bld) [#/Vol] 8.0 E9/L Normal 4.0-11.0 [facility] Comment on above: Performed By: #### 1 8954361, 48542545, 7472228, 26704651, 0351353, 8899287, 23468841 ####[address] [place] [address] CHEMISTRYOrdered By: SYSTEM SYSTEM on 07-07-2023 Troponin I.cardiac [Mass/Vol] 42.10 pg/mL Invalid Interpretation Code 10.10 - 27.10 pg/mL [facility] Comment on above: Result Comment: Crit ical Result verified by previous result\ Critical Result I_hsTnI:42.1 Called to NOE WING at ER by DAMIEN CORREA and read back for confirmation at 07/07/2023 12:28:40 Interpretive Data: T he 95% CI (Confidence Interval) PPV (Positive Predictive Value) for myocardial infarction in females is 38 pg/mL, in males 51 pg/mL. The results should be used in conjunction with clinical conditions of myocardial infarction. (Access High Sensitivity Troponin I Instructions For Use, Marlys Ari[place], March 2018) Anion gap [Moles/Vol] 14 mmol/L Normal 6 - 16 mEq/L [facility] Calcium [Mass/Vol] 8.7 mg/dL Low 8.9 - 11. 1 mg/dL [facility] Chloride [Moles/Vol] 100 mmol/L Low 101 - 1 11 mmol/L [facility] CO2 [Moles/Vol] 26 mmol/L Normal 21 - 31 mmol/L [facility] Creatinine [Mass/Vol] 0.8 mg/dL Normal 0.5 - 1.3 mg/dL [facility] GFR/1.73 sq M.predicted among non-blacks MDRD (S/P/Bld) [Vol rate/Area] 77 mL/min/1.73 m2 Normal >=59mL/min/1 .73 m2 [facility] Chem S Comment on above: Interpretive Data: C hronic kidney disease could be indicated at eGFR's of less than 60 mL/min/1.73m2. Kidney failure is indicated at less than 15 mL/min/1.73m2. Glucose [Mass/Vol] 137 mg/dL Normal 55 - 199 mg/dL [facility] Comment on above: Interpretive Data: I f this glucose result represents a fasting glucose, interpretation should refer to the following reference range: 55-99 mg/dL Potassium [Moles/Vol] 4.3 mmol/L Normal 3.5 - 5.3 mmol/L [facility] Sodium [Moles/Vol] 136 mmol/L Normal 135 - 145 mmol/L [facility] Troponin I.cardiac [Mass/Vol] 39.60 pg/mL Invalid Interpretation Code 10.10 - 27.10 pg/mL [facility] Comment on above: Result Comment: Crit [...] 13 mg/dL Normal 5 - 21 mg/dL [facility] Remisol Urea nitrogen/Creatinine [Mass ratio] 16 mg/mg Normal 10 - 20 [facility] Remisol CHEMISTRYOrdered By: Margaret Collier on 07-07-2023 Natriuretic peptide B (Bld) [Mass/Vol] 756 pg/mL High 5 - 80 pg/mL [facility] HemeManSS COAGULATIONOrdered By: Fay Tran on 07-07-2023 aPTT Coag (PPP) [Time] 28.4 s Normal 25.1 - 36.5 second(s) [facility] Auto Coag Comment on above: Interpretive Data: Tim tipton 15 days - 4 weeks 1 - [...] the same coagulation reagent and instrumentation as [facility]. Currently there are no coagulation studies available worldwide for children to 14 days, and no normal ranges. Heparin therapeutic range (represented by Anti-Factor Xa activity of 0.2 - 0.4 U/mL) corresponds to PTT of 56.6 - 109.0 sec. INR Coag (PPP) [Relative time] 1.0 {INR} Invalid Interpretation Code [facility] Auto Coag Comment on above: Interpretive Data: I NR results are specifically intended to assess patients stabilized on long-term Anticoagulation therapy suggested INR s Less Intensive Anticoagulation 2.0 3.0 Conventional Range 3.0 4.5 PT Coag (PPP) [Time] 11.3 s Normal 9.4 - 1 2.5 second(s) [facility] Auto Coag Comment on above: Interpretive Data: [...] the same coagulation reagent and instrumentation as [facility]. Currently there are no coagulation studies available worldwide for children to 14 days, and no normal ranges. Consent for Procedure/Surger yon 07-07-2023 Consent for Procedure/Surgery [id number]# 1.00TIFF Normal [facility] Consent for Treatmenton 06-15 Consent for Treatment [id number]#1 .00TIFF [facility] Discharge Instructionson Discharge Instructions [id number]#1 .00TIFF Normal [facility] ED Clinical Summaryon 2022 ED Clinical Summary Normal [facility] ED Note-Nursingon 07-07-2023 ED Note-Nursing discussed in length medications pt needs to take yet today and need to pear picker Rx 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 Normal [facility] ED Patient Education Noteon 07-07-2023 ED Patient Education Note Normal [facility] ED Patient Summaryon 023 ED Patient Summary Normal [facility] HEMATOLOGYOrdered By: SYSTEM SYSTEM on 07-07-2023 Basophils/100 [...] 32.3 g/dL Normal 31.4 - 36.0 gm/dL [facility] HemeAutoSS MCV (RBC) [Entitic vol] 90.2 fL Normal 80.0 - 100.0 fL [facility] HemeAutoSS Platelet mean volume (Bld) [Entitic vol] 8.5 fL Normal 6.4 - 10.8 fL [facility] HemeAutoSS Platelets (Bld) [#/Vol] 291.0 E9/L Normal 150.0 - 500.0 E9/L [facility] HemeAutoSS RBC (Bld) [#/Vol] 4.5 E12/L Normal 4.3 - 5.9 E12/L [facility] HemeAutoSS WBC corrected for nucl RBC Auto (Bld) [#/Vol] 8.0 E9/L Normal 4.0 - 11.0 E9/L [facility] HemeAutoSS Insurance Correspondence Off iceon 07-07-2023 Insurance Correspondence Office [id number]#1 .00TIFF Normal [facility] Monitor Recordon 07-07-2023 Monitor Record [id number]# 1.00TIFF Normal [facility] Monitor Record [id number] 1 [id number]# 1.00TIFF Normal [facility] Monitor Record [id number] 1 [id number]# 1.00TIFF Normal [facility] PT & PTTon 07-07-2023 aPTT Coag (PPP) [Time] 28.4 second(s) Normal 25.1-36.5 [facility] Comment on above: Result Comment: Para meter [...] the same coagulation reagent and instrumentation as [facility]. Currently there are no coagulation studies available worldwide for children to 14 days, and no normal ranges. Heparin therapeutic range (represented by Anti-Factor Xa activity of 0.2 - 0.4 U/mL) corresponds to PTT of 56.6 - 109.0 sec. Performed By: #### 1 0661656, 37239447, 3045449, 20199104, 3747532, 6083691, 70072184 ####[facility] [address] [place] [address] INR Coag (PPP) [Relative time] 1.0 {INR} Invalid Interpretation Code [facility] Comment on above: Result Comment: INR results are specifically intended to assess patients stabilized on long-term Anticoagulation therapy suggested INR?s ?Less Intensive Anticoagulation? 2.0 ? 3.0Conventional Range 3.0 ? 4.5 Performed By: #### 1 0879664, 27449259, 3744540, 61647482, 8949307, 9103383, 28431603 ####[facility] [address] [place] [address] PT Coag (PPP) [Time] 11.3 second(s) Normal 9.4-12.5 [facility] Comment on above: Result Comment: 15 d [...] the same coagulation reagent and instrumentation as [facility]. Currently there are no coagulation studies available worldwide for children to 14 days, and no normal ranges. Performed By: #### 1 3331294, 36080473, 3017609, 75858305, 3383366, 5601602, 23707144 ####[facility] [address] [place] [address] Troponin 0 Hr.on 07-07-2023 Troponin I.cardiac [Mass/Vol] 39.60 pg/mL Abnormal 10.10-27.10 [facility] Comment on above: Result Comment: Crit ical [...] in conjunction with clinical conditions of myocardial infarction.([employer] High Sensitivity Troponin I Instructions For Use, [employer], March 2018) Performed By: #### 1 8041951, 74606697, 9049733, 50747340, 5169876, 9796274, 05046809 ####[facility] [address] [place] [address] Troponin 3 Hr.on 07-07-2023 Troponin I.cardiac [Mass/Vol] 42.10 pg/mL Abnormal 10.10-27.10 [facility] Comment on above: Result Comment: Crit ical Result verified by previous result\ Critical Result I_hsTnI:42.1 Called to NOE WING at ER by DAMIEN CORREA and read back for confirmation at 07/07/2023 12:28:40The 95% CI (Confidence Interval) PPV (Positive Predictive Value) for myocardial infarction in females is 38 pg/mL, in males 51 pg/mL. The results should be used in conjunction with clinical conditions of myocardial infarction.([employer] High Sensitivity Troponin I Instructions For Use, [employer], March 2018) Performed By: #### 1 [id number] ####[facility] [address] [place] [address] XR Chest Single Viewon 07-07 XR Chest Single View Normal [facility] eGFRon 07-07-2023 GFR/1.73 sq M.predicted among non-blacks MDRD (S/P/Bld) [Vol rate/Area] 77 mL/min/1.73 m2 Normal >=59 [facility] Comment on above: Order Comment: Order added by Discern Expert. Result Comment: Eyeglass Frames Inspector luis kidney disease could be indicated at eGFR's of less than 60 mL/min/1.73m2. Kidney failure is indicated at less than 15 mL/min/1.73m2. Performed By: #### 1 6096821, 58050915, 9463484, 28868733, 7573161, 6500088, 69112620 ####[facility] [address] [place] [address] BMPon 07-06-2023 Anion gap [Moles/Vol] 5 mmol/L Low 6-16 [facility] Comment on above: Performed By: #### 1 8907968, 6509684 ####[facility] [address] [place] [address] Calcium [Mass/Vol] 8.0 mg/dL Low 8.9-11.1 [facility] Comment on above: Performed By: #### 1 9761184, 0491944 ####[facility] [address] [place] [address] Chloride [Moles/Vol] 109 mmol/L Normal 101-111 [facility] Comment on above: Performed By: #### 1 2402953, 7559238 ####[facility] [address] [place] [address] CO2 [Moles/Vol] 28 mmol/L Normal 21-31 [facility] Comment on above: Performed By: #### 1 5341112, 8631665 ####[facility] [address] [place] [address] Creatinine [Mass/Vol] 0.7 mg/dL Normal 0.5-1.3 [facility] Comment on above: Performed By: #### 1 1710686, 7207618 ####[facility] [address] [place] [address] Glucose [Mass/Vol] 91 mg/dL Normal 55-199 [facility] Comment on above: Result Comment: If t his glucose result represents a fasting glucose, interpretation should refer to the following reference range: 55-99 mg/dL Performed By: #### 1 3275541, 8064118 ####[facility] [address] [place] [address] Potassium [Moles/Vol] 3.9 mmol/L Normal 3.5-5.3 [facility] Comment on above: Performed By: #### 1 2172395, 5690710 ####[facility] [address] [place] [address] Sodium [Moles/Vol] 138 mmol/L Normal 135-145 [facility] Comment on above: Performed By: #### 1 1470019, 2875672 ####[facility] [address] [place] [address] Urea nitrogen [Mass/Vol] 12 mg/dL Normal 5-21 [facility] Comment on above: Performed By: #### 1 8428771, 7021230 ####[facility] [address] [place] [address] Urea nitrogen/Creatinine [Mass ratio] 17 No Units Normal 10-20 [facility] Comment on above: Performed By: #### 1 4448747, 9169441 ####[facility] [address] [place] [address] CHEMISTRYOrdered By: SYSTEM SYSTEM on 07-06-2023 Anion gap [Moles/Vol] 5 mmol/L Low 6 - 16 mEq/L [facility] Remisol Calcium [Mass/Vol] 8.0 mg/dL Low 8.9 - 11. 1 mg/dL [facility] Remisol Chloride [Moles/Vol] 109 mmol/L Normal 101 - 1 11 mmol/L [facility] Remisol CO2 [Moles/Vol] 28 mmol/L Normal 21 - 31 mmol/L [facility] Remisol Creatinine [Mass/Vol] 0.7 mg/dL Normal 0.5 - 1.3 mg/dL [facility] Remisol GFR/1.73 sq M.predicted among non-blacks MDRD (S/P/Bld) [Vol rate/Area] 90 mL/min/1.73 m2 Normal >=59mL/min/1 .73 m2 [facility] Chem S Comment on above: Interpretive Data: C hronic kidney disease could be indicated at eGFR's of less than 60 mL/min/1.73m2. Kidney failure is indicated at less than 15 mL/min/1.73m2. Glucose [Mass/Vol] 91 mg/dL Normal 55 - 199 mg/dL [facility] Remisol Comment on above: Interpretive Data: I f this glucose result represents a fasting glucose, interpretation should refer to the following reference range: 55-99 mg/dL Potassium [Moles/Vol] 3.9 mmol/L Normal 3.5 - 5.3 mmol/L [facility] Remisol Sodium [Moles/Vol] 138 mmol/L Normal 135 - 145 mmol/L [facility] Remisol Urea nitrogen [Mass/Vol] 12 mg/dL Normal 5 - 21 mg/dL [facility] Remisol Urea nitrogen/Creatinine [Mass ratio] 17 mg/mg Normal 10 - 20 [facility] Remisol Discharge Note-Nursingon Discharge Note-Nursing Normal [facility] Inpatient Clinical Summaryon 07-06-2023 Inpatient Clinical Summary Normal [facility] Inpatient Patient Summaryon 07-06-2023 Inpatient Patient Summary Normal [facility] Interdisciplinary Note - Tico e Manageron 07-06-2023 Interdisciplinary Note - Network Security Administrator [facility] Comment on above: Result Comment: Elec tronically Signed By: Radha Resendiz RN\.br\Date and Time Signed: 07/06/23 12:06 EST Monitor Recordon 07-06-2023 Monitor Record [id number]# 1.00TIFF Normal [facility] Monitor Record [id number] 1 [id number]# 1.00TIFF Normal [facility] Monitor Record [id number] 1 [id number]# 1.00TIFF Normal [facility] Monitor Record [id number] 1 [id number]# 1.00TIFF Normal [facility] Progress Note-Physicianon Progress Note-Physician [facility] Comment on above: Result Comment: Elec tronically Signed By: JAZMÍN MCMAHON, Nahid\.br\Date and Time Signed: 07/06/23 11:56 EST Progress Note-Physician Normal [facility] Comment on above: Result Comment: Elec tronically Signed By: MARTINEZ MCMAHON, Taylor Ribeiro.br\Date and Time Signed: 07/06/23 09:22 EST eGFRon 07-06-2023 GFR/1.73 sq M.predicted among non-blacks MDRD (S/P/Bld) [Vol rate/Area] 90 mL/min/1.73 m2 Normal >=59 [facility] Comment on above: Order Comment: Order added by Discern Expert. Result Comment: Eyeglass Frames Inspector luis kidney disease could be indicated at eGFR's of less than 60 mL/min/1.73m2. Kidney failure is indicated at less than 15 mL/min/1.73m2. Performed By: #### 1 [id number], 5898603 ####[facility] [address] [place] [address] BMPon 07-05-2023 Anion gap [Moles/Vol] 9 mmol/L Normal 6-16 [facility] Comment on above: Performed By: #### 1 9640975, 5365603 ####[facility] [address] [place] [address] Calcium [Mass/Vol] 8.2 mg/dL Low 8.9-11.1 [facility] Comment on above: Performed By: #### 1 0681673, 7922200 ####[facility] [address] [place] [address] Chloride [Moles/Vol] 105 mmol/L Normal 101-111 [facility] Comment on above: Performed By: #### 1 6990087, 3243270 ####[facility] [address] [place] [address] CO2 [Moles/Vol] 27 mmol/L Normal 21-31 [facility] Comment on above: Performed By: #### 1 7114167, 1710754 ####[facility] [address] [place] [address] Creatinine [Mass/Vol] 0.7 mg/dL Normal 0.5-1.3 [facility] Comment on above: Performed By: #### 1 0587074, 4051581 ####[facility] [address] [place] [address] Glucose [Mass/Vol] 115 mg/dL Normal 55-199 [facility] Comment on above: Result Comment: If t his glucose result represents a fasting glucose, interpretation should refer to the following reference range: 55-99 mg/dL Performed By: #### 1 6998686, 1112100 ####[facility] [address] [place] [address] Potassium [Moles/Vol] 4.3 mmol/L Normal 3.5-5.3 [facility] Comment on above: Performed By: #### 1 2498014, 8151896 ####[facility] [address] [place] [address] Sodium [Moles/Vol] 137 mmol/L Normal 135-145 [facility] Comment on above: Performed By: #### 1 9029209, 9092007 ####[facility] [address] [place] [address] Urea nitrogen [Mass/Vol] 13 mg/dL Normal 5-21 [facility] Comment on above: Performed By: #### 1 7995861, 5090509 ####[facility] [address] [place] [address] Urea nitrogen/Creatinine [Mass ratio] 19 No Units Normal 10-20 [facility] Comment on above: Performed By: #### 1 6463617, 1934680 ####[facility] [address] [place] [address] CHEMISTRYOrdered By: SYSTEM SYSTEM on 07-05-2023 Anion gap [Moles/Vol] 9 mmol/L Normal 6 - 16 mEq/L [facility] Remisol Calcium [Mass/Vol] 8.2 mg/dL Low 8.9 - 11. 1 mg/dL [facility] Remisol Chloride [Moles/Vol] 105 mmol/L Normal 101 - 1 11 mmol/L FT Remisol CO2 [Moles/Vol] 27 mmol/L Normal 21 - 31 mmol/L FT Remisol Creatinine [Mass/Vol] 0.7 mg/dL Normal 0.5 - 1.3 mg/dL [facility] Remisol GFR/1.73 sq M.predicted among non-blacks MDRD (S/P/Bld) [Vol rate/Area] 90 mL/min/1.73 m2 Normal >=59mL/min/1 .73 m2 [facility] Chem S Comment on above: Interpretive Data: C hronic kidney disease could be indicated at eGFR's of less than 60 mL/min/1.73m2. Kidney failure is indicated at less than 15 mL/min/1.73m2. Glucose [Mass/Vol] 115 mg/dL Normal 55 - 199 mg/dL [facility] Comment on above: Interpretive Data: I f this glucose result represents a fasting glucose, interpretation should refer to the following reference range: 55-99 mg/dL Potassium [Moles/Vol] 4.3 mmol/L Normal 3.5 - 5.3 mmol/L [facility] Remisol Sodium [Moles/Vol] 137 mmol/L Normal 135 - 145 mmol/L [facility] Remisol Urea nitrogen [Mass/Vol] 13 mg/dL Normal 5 - 21 mg/dL [facility] Remisol Urea nitrogen/Creatinine [Mass ratio] 19 mg/mg Normal 10 - 20 [facility] CHEMISTRYOrdered By: Lab ROP User on 07-05-2023 Glucose [Mass/Vol] 79 mg/dL Normal 55 - 99 mg/dL [facility] POC Subsection Comment on above: Result Comment: Neli PIÑA POC Username NIKHIL PAULSON Invalid Interpretation Code [facility] POC Subsection Sodium [Moles/Vol] 284775245339 mmol/L Invalid Interpretation Code [facility] POC Subsection Sodium [Moles/Vol] 683897163 mmol/L Invalid Interpretation Code [facility] POC Subsection Capillary Glucose POCon 06-15 Glucose [Mass/Vol] 79 mg/dL Normal 55-99 [facility] Comment on above: Result Comment: Neli PIÑA Performed By: #### 2 [id number] ####[facility] [address] [place] [address] Cardiovascular Reporton 06-15 Cardiovascular Report [id number]# 1.00TIFF Normal [facility] Interdisciplinary Note - Tico e Manageron 07-05-2023 Interdisciplinary Note - Network Security Administrator Normal [facility] Comment on above: Result Comment: Elec tronically Signed By: Margaret Grimm\.br\Date and Time Signed: 07/05/23 15:06 EST Monitor Recordon 07-05-2023 Monitor Record [id number]# 1.00TIFF Normal [facility] Monitor Record [id number]# 1.00TIFF Normal [facility] Monitor Record [id number] 1 [id number]# 1.00TIFF Normal [facility] Monitor Record [id number] 1 [id number]# 1.00TIFF Normal [facility] Operative Reporton Operative Report Normal [facility] Comment on above: Result Comment: Elec tronically Signed By: MARTINEZ MCMAHON, Taylor Patino\.br\Date and Time Signed: 07/05/23 11:46 EST Progress Note-Nurseon 2022 Progress Note-Nurse blood bank laboratory technologist made aware patient last dose of lovenox was given on 07/04/23 @ 2345. Normal [facility] Progress Note-Physicianon Progress Note-Physician Normal [facility] Comment on above: Result Comment: Elec tronically Signed By: JAZMÍN MCMAHON, Nahid\.br\Date and Time Signed: 07/05/23 11:19 EST eGFRon 07-05-2023 GFR/1.73 sq M.predicted among non-blacks MDRD (S/P/Bld) [Vol rate/Area] 90 mL/min/1.73 m2 Normal >=59 [facility] Comment on above: Order Comment: Order added by Discern Expert. Result Comment: Eyeglass Frames Inspector luis kidney disease could be indicated at eGFR's of less than 60 mL/min/1.73m2. Kidney failure is indicated at less than 15 mL/min/1.73m2. Performed By: #### 1 8962288, 9854802 ####[facility] [address] [place] [address] Interdisciplinary Note - Tico e Manageron 07-04-2023 Interdisciplinary Note - Network Security Administrator Normal [facility] Comment on above: Result Comment: Elec tronically Signed By: Margaret Grimm\.br\Date and Time Signed: 07/04/23 10:49 EST Monitor Recordon 07-04-2023 Monitor Record [id number]# 1.00TIFF Normal [facility] Monitor Record [id number] 1 [id number]# 1.00TIFF Normal [facility] Monitor Record [id number] 1 [id number]# 1.00TIFF Normal [facility] Monitor Record [id number]# 1.00TIFF Normal [facility] Patient Education - Texton 1 09-03-2022 Patient Education - Text [facility] Progress Note-Physicianon Progress Note-Physician Normal [facility] Comment on above: Result Comment: Elec tronically Signed By: JAZMÍN MCMAHON, Nahid\.br\Date and Time Signed: 07/04/23 10:53 EST Progress Note-Physician Normal [facility] Comment on above: Result Comment: Elec tronically Signed By: MARTINEZ MCMAHON, Taylor Patino\.br\Date and Time Signed: 07/04/23 08:04 EST Auto Diffon 07-03-2023 Basophils/100 WBC (Bld) 0.3 % Normal 0.0-2.0 [facility] Comment on above: Order Comment: Order Added by Discern Expert. Performed By: #### 2 527569, 9430623, 9023402, 4176229, 33065778, 7686790, 42473374 ####[facility] [address] [place] [address] Basophils/Leukocytes Auto (Bld) [Pure # fraction] 0.0 E9/L Normal 0.0-0.2 [facility] Comment on above: Order Comment: Order Added by Valeria Expert. Performed By: #### 2 903032, 7834357, 1769839, 3219988, 34461093, 4855485, 64603544 ####[facility] [address] [place] [address] Eosinophils/100 WBC (Bld) 0.0 % Normal 0.0-8.0 [facility] Comment on above: Order Comment: Order Added by Discern Expert. Performed By: #### 2 149797, 8530059, 3160364, 0893345, 32119643, 7312615, 75401826 ####[facility] [address] [place] [address] Eosinophils/Leukocytes Auto (Bld) [Pure # fraction] 0.0 E9/L Normal 0.0-0.5 [facility] Comment on above: Order Comment: Order Added by Valeria Expert. Performed By: #### 2 592984, 8589696, 3291655, 3321092, 67412022, 5367456, 22690371 ####[facility] [address] [place] [address] Lymphocytes/100 WBC (Bld) 15.3 % Normal 14.0-50.0 [facility] Comment on above: Order Comment: Order Added by Valeria Expert. Performed By: #### 2 221556, 7120194, 5160780, 6566899, 85446845, 0378724, 78867031 ####[facility] [address] [place] [address] Lymphocytes/Leukocytes Auto (Bld) [Pure # fraction] 0.9 E9/L Low 1.0-4.0 [facility] Comment on above: Order Comment: Order Added by Valeria Expert. Performed By: #### 2 850631, 1509319, 3267163, 6227961, 20896600, 6910675, 52453367 ####[facility] [address] [place] [address] Monocytes/100 WBC (Bld) 7.7 % Normal 4.0-14.0 [facility] Comment on above: Order Comment: Order Added by Discern Expert. Performed By: #### 2 044280, 0599964, 4422882, 2670914, 16608280, 7240277, 94752267 ####[facility] [address] [place] [address] Monocytes/Leukocytes Auto (Bld) [Pure # fraction] 0.5 E9/L Normal 0.2-1.0 [facility] Comment on above: Order Comment: Order Added by Discern Expert. Performed By: #### 2 090115, 4929277, 4857651, 0067273, 60608058, 5954510, 20232334 ####[facility] [address] [place] [address] Neutrophils/100 WBC (Bld) 76.7 % High 36.0-75.0 [facility] Comment on above: Order Comment: Order Added by Discern Expert. Performed By: #### 2 143783, 7107168, 5339233, 6723699, 66936020, 2706393, 09801374 ####[facility] [address] [place] [address] Neutrophils/Leukocytes Auto (Bld) [Pure # fraction] 4.7 E9/L Normal 2.0-7.5 [facility] Comment on above: Order Comment: Order Added by Discern Expert. Performed By: #### 2 905479, 6727393, 3793508, 9816938, 86584948, 0820976, 59674363 ####[facility] [address] [place] [address] BMPon 07-03-2023 Creatinine [Mass/Vol] 1.0 mg/dL Normal 0.5-1.3 [facility] Comment on above: Performed By: #### 2 331491, 9353280, 7265829, 3407257, 69819395, 1550916, 40771198 ####[facility] [address] [place] [address] Urea nitrogen [Mass/Vol] 13 mg/dL Normal 5-21 [facility] Comment on above: Performed By: #### 2 104610, 7942386, 6245498, 2045342, 71074873, 8212247, 99433409 ####[facility] [address] [facility] [place] [address] Urea nitrogen/Creatinine [Mass ratio] 13 No Units Normal 10-20 [facility] Comment on above: Performed By: #### 2 341263, 0624527, 8633655, 4652683, 43837583, 6537425, 11220577 ####[facility] [address] [place] [address] Anion gap [Moles/Vol] 13 mmol/L Normal 6-16 [facility] Comment on above: Performed By: #### 2 806303, 2137726, 3261246, 0600928, 13888838, 5539711, 70798842 ####[facility] [address] [place] [address] Calcium [Mass/Vol] 9.1 mg/dL Normal 8.9-11.1 [facility] Comment on above: Performed By: #### 2 499406, 5860784, 0249753, 0957268, 71489816, 7222663, 30613447 ####[facility] [address] [place] [address] Chloride [Moles/Vol] 100 mmol/L Low 101-111 [facility] Comment on above: Performed By: #### 2 271250, 1323212, 9407520, 0887560, 33260839, 0243844, 69205196 ####[facility] [address] [place] [address] CO2 [Moles/Vol] 24 mmol/L Normal 21-31 [facility] Comment on above: Performed By: #### 2 202421, 6505317, 1211729, 9128265, 61866268, 3392244, 32609515 ####[facility] [address] [place] [address] Glucose [Mass/Vol] 129 mg/dL Normal 55-199 [facility] Comment on above: Result Comment: If t his glucose result represents a fasting glucose, interpretation should refer to the following reference range: 55-99 mg/dL Performed By: #### 2 266470, 6023707, 3486340, 4435564, 72031122, 3025033, 94457771 ####[facility] [address] [place] [address] Potassium [Moles/Vol] 3.8 mmol/L Normal 3.5-5.3 [facility] Comment on above: Performed By: #### 2 929329, 5335511, 9690616, 3281422, 67829289, 4528010, 20303254 ####[facility] [address] [place] [address] Sodium [Moles/Vol] 133 mmol/L Low 135-145 [facility] Comment on above: Performed By: #### 2 136864, 0534393, 2383738, 0433105, 55197916, 0039870, 17793616 ####[facility] [address] [place] [address] CBC w/ Auto Diffon 3 Erythrocyte distribution width (RBC) [Ratio] 13.5 % Normal 10.9-14.2 [facility] Comment on above: Performed By: #### 2 193732, 7668078, 1733193, 7998118, 12807842, 4740818, 90381469 ####[facility] [address] [place] [address] Hematocrit (Bld) [Volume fraction] 38.5 % Normal 34.0-46.0 [facility] Comment on above: Performed By: #### 2 405758, 0539360, 4987470, 5689043, 98688349, 8138075, 24307871 ####[facility] [address] [place] [address] Hemoglobin (Bld) [Mass/Vol] 12.7 g/dL Normal 12.0-16.0 [facility] Comment on above: Performed By: #### 2 949250, 9914293, 0959669, 5776638, 81249373, 7783207, 67619931 ####[facility] [address] [place] [address] MCH (RBC) [Entitic mass] 29.7 pg Normal 27.0-34.0 [facility] Comment on above: Performed By: #### 2 205635, 5104792, 5710944, 0442693, 27856775, 0345587, 76909052 ####[facility] [address] [place] [address] MCHC (RBC) [Mass/Vol] 32.9 g/dL Normal 31.4-36.0 [facility] Comment on above: Performed By: #### 2 889170, 0746305, 0490280, 5327243, 60396719, 6799647, 08318722 ####[address] [address] MCV (RBC) [Entitic vol] 90.3 fL Normal 80.0-100.0 [facility] Comment on above: Performed By: #### 2 745793, 0463791, 3532531, 7081412, 68373003, 0397157, 95361889 ####[address] [address] Platelet mean volume (Bld) [Entitic vol] 9.1 fL Normal 6.4-10.8 [facility] Comment on above: Performed By: #### 2 259590, 6806484, 0565922, 5284236, 50444083, 0488376, 40860810 ####[address] [address] Platelets (Bld) [#/Vol] 183.0 E9/L Normal 150.0-500.0 [facility] Comment on above: Performed By: #### 2 611119, 2357207, 6931614, 6864292, 14181751, 0239773, 84547328 ####[facility] [address] [place] [address] RBC (Bld) [#/Vol] 4.3 E12/L Normal 4.3-5.9 [facility] Comment on above: Performed By: #### 2 351036, 6033335, 5493178, 2659951, 29316954, 9740304, 89829348 ####[facility] [address] [place] [address] WBC corrected for nucl RBC Auto (Bld) [#/Vol] 6.2 E9/L Normal 4.0-11.0 [facility] Comment on above: Performed By: #### 2 744761, 0269303, 3731378, 9568120, 41297598, 6208148, 67839954 ####[facility] [address] [place] [address] CHEMISTRYOrdered By: SYSTEM SYSTEM on 07-03-2023 Cholesterol [Mass/Vol] 145 mg/dL Normal 120 - 200 mg/dL [facility]isol Cholesterol in HDL [Mass/Vol] 43 mg/dL [...] Sensitivity Troponin I Instructions For Use, Marlys Harris, March 2018) TSH Qn 3.83 m[IU]/L Normal 0.34 - 5.60 mcIU/mL [facility]isol CHEMISTRYOrdered By: Dulce Maria Correa on 07-03-2023 HbA1c (Bld) [Mass fraction] 5.5 % Normal <=5.9% [facility] ChemAutoSS Consultation Noteon 07-03-20 Consultation Note Normal [facility] Comment on above: Result Comment: Elec tronically Signed By: Shell MCMAHON, Eb Yeh\.br\Date and Time Signed: 07/03/23 21:35 EST Consultation Note Normal [facility] Comment on above: Result Comment: Elec tronically Signed By: Cody RICHARDSON MD\.br\Date and Time Signed: 07/03/23 19:12 EST ED Clinical Summaryon 2022 ED Clinical Summary Normal [facility] ED Note-Physicianon 07-03-20 ED Note-Physician Normal [facility] Comment on above: Result Comment: Elec tronically Signed By: Layton Crawford M.D.\.br\Date and Time Signed: 07/03/23 08:17 EST ED Patient Education Noteon 07-03-2023 ED Patient Education Note Normal [facility] ED Patient Summaryon 023 ED Patient Summary Normal [facility] Echo Transthoracic Completeo n 07-03-2023 Echo Transthoracic Complete Normal [facility] Hep Func Panelon 07-03-2023 Albumin [Mass/Vol] 3.8 g/dL Normal 3.3-5.0 [facility] Comment on above: Performed By: #### 2 321962, 1820714, 2905983, 0044424, 83624403, 9585516, 92944390 ####[facility] [address] [place] [address] Albumin/Globulin (S) [Mass conc ratio] 1.3 Normal 1.1-2.2 [facility] Comment on above: Performed By: #### 2 019823, 1974812, 8216829, 8549063, 28708359, 4106246, 87001374 ####[facility] [address] [place] [address] ALP [Catalytic activity/Vol] 58 Int._Unit/L Normal 21-98 [facility] Comment on above: Performed By: #### 2 375959, 3931433, 0036589, 7111736, 13697899, 5279088, 18447252 ####[facility] [address] [place] [address] ALT No additional P-5'-P [Catalytic activity/Vol] 66 Int._Unit/L High 6-46 [facility] Comment on above: Performed By: #### 2 677867, 4380702, 8205688, 7646347, 29336571, 9270503, 54610487 ####[facility] [address] [place] [address] AST [Catalytic activity/Vol] 81 Int._Unit/L High 5-43 [facility] Comment on above: Performed By: #### 2 442885, 0781625, 8629547, 3851378, 85435773, 2126137, 19741276 ####[address] [address] Bilirubin [Mass/Vol] 0.5 mg/dL Normal 0.0-1.1 [facility] Comment on above: Performed By: #### 2 101522, 7333136, 4730967, 9138511, 95688600, 8597183, 68530463 ####[address] [place] [address] Bilirubin.direct [Mass/Vol] 0.1 mg/dL Normal 0.1-0.4 [facility] Comment on above: Performed By: #### 2 436502, 1688031, 8384396, 4227559, 97914893, 0145527, 30397158 ####[facility] [address] [place] [address] Bilirubin.indirect [Mass or moles/Vol] 0.4 mg/dL Normal 0.1-0.9 [facility] Comment on above: Performed By: #### 2 102157, 3296166, 9889653, 4605814, 99892386, 1330877, 65615830 ####[facility] [address] [place] [address] Globulin (S) [Mass/Vol] 2.9 g/dL Normal 1.4-4.0 [facility] Comment on above: Performed By: #### 2 873936, 6432246, 8978601, 8855448, 94034719, 6391382, 73857885 ####[facility] [address] [place] [address] Protein [Mass/Vol] 6.7 g/dL Normal 6.0-7.8 [facility] Comment on above: Performed By: #### 2 159815, 3581785, 1064735, 5584779, 35405175, 6484840, 51032240 ####[facility] [address] [place] [address] FnsG0ofg 07-03-2023 HbA1c (Bld) [Mass fraction] 5.5 % Normal <=5.9 [facility] Comment on above: Performed By: #### 2 707666, 43599222, 2344300, 772032054 ####[facility] [address] [place] [address] Interdisciplinary Note - Tico e Manageron 07-03-2023 Interdisciplinary Note - Network Security Administrator Normal [facility] Comment on above: Result Comment: Elec tronically Signed By: Brigitte Nazario\.br\Date and Time Signed: 07/03/23 13:05 EST Lipid Panelon 07-03-2023 Cholesterol [Mass/Vol] 145 mg/dL Normal 120-200 [facility] Comment on above: Performed By: #### 2 842462, 94623306, 3060058, 653632206 ####[facility] [address] [place] [address] Cholesterol in HDL [Mass/Vol] 43 mg/dL Invalid Interpretation Code [facility] Comment on above: Result Comment: HDL > or equal to 60 mg/dL: Low cardiovascular riskHDL < 40 mg/dL : High cardiovascular risk Performed By: #### 2 760432, 98076874, 0568229, 132188213 ####[facility] [address] [place] [address] Cholesterol in LDL [Mass/Vol] 99 mg/dL Normal <=129 [facility] Comment on above: Performed By: #### 2 249320, 47919953, 5605573, 403729627 ####[facility] [address] [place] [address] Cholesterol in VLDL [Mass/Vol] 17 mg/dL Normal 7-40 [facility] Comment on above: Performed By: #### 2 298739, 71065243, 0446171, 144101679 ####[facility] [address] [place] [address] Triglyceride [Mass/Vol] 85 mg/dL Normal <=149 [facility] Comment on above: Performed By: #### 2 607280, 73178584, 8685098, 061785826 ####[facility] [address] [place] [address] Magnesiumon 07-03-2023 Magnesium [Mass/Vol] 2.0 mg/dL Normal 1.3-2.4 [facility] Comment on above: Performed By: #### 2 036862, 3450897, 1291684, 3035551, 08831421, 2891961, 32775247 ####[facility] [address] [place] [address] Message from Medicareon 06-15 Message from Medicare [id number]# 1.00TIFF Normal [facility] Monitor Recordon 07-03-2023 Monitor Record [id number]# 1.00TIFF Normal [facility] Monitor Record [id number]# 1.00TIFF Normal [facility] Monitor Record [id number]# 1.00TIFF Normal [facility] PT & PTTon 07-03-2023 aPTT Coag (PPP) [Time] 30.2 second(s) Normal 25.1-36.5 [facility] Comment on above: Result Comment: Para meter [...] the same coagulation reagent and instrumentation as [facility]. Currently there are no coagulation studies available worldwide for children to 14 days, and no normal ranges. Heparin therapeutic range (represented by Anti-Factor Xa activity of 0.2 - 0.4 U/mL) corresponds to PTT of 56.6 - 109.0 sec. Performed By: #### 1 5931426 ####[facility] [address] [place] [address] INR Coag (PPP) [Relative time] 1.2 {INR} Invalid Interpretation Code [facility] Comment on above: Result Comment: INR results are specifically intended to assess patients stabilized on long-term Anticoagulation therapy suggested INR?s ?Less Intensive Anticoagulation? 2.0 ? 3.0Conventional Range 3.0 ? 4.5 Performed By: #### 1 2169989 ####[facility] [address] [place] [address] PT Coag (PPP) [Time] 13.2 second(s) High 9.4-12.5 [facility] Comment on above: Result Comment: 15 d [...] the same coagulation reagent and instrumentation as [facility]. Currently there are no coagulation studies available worldwide for children to 14 days, and no normal ranges. Performed By: #### 1 2490059 ####[facility] [address] [place] [address] Progress Note-Physicianon Progress Note-Physician Normal [facility] Comment on above: Result Comment: Elec tronically Signed By: JAZMÍN MCMAHON, Nahid\.br\Date and Time Signed: 07/03/23 10:57 EST TSH With T4fr Reflexon 07-03 TSH Qn 3.83 m[IU]/L Normal 0.34-5.60 [facility] Comment on above: Performed By: #### 2 453868, 33367201, 4837277, 204245893 ####[facility] [address] [place] [address] Troponinon 07-03-2023 Troponin I.cardiac [Mass/Vol] 27.10 pg/mL Normal 10.10-27.10 [facility] Comment on above: Result Comment: The 95% CI (Confidence Interval) PPV (Positive Predictive Value) for myocardial infarction in females is 38 pg/mL, in males 51 pg/mL. The results should be used in conjunction with clinical conditions of myocardial infarction.(Access High Sensitivity Troponin I Instructions For Use, Marlys Ariadne, March 2018) Performed By: #### 2 663053, 55178790, 3046499, 634236073 ####[facility] [address] [place] [address] Troponin 0 Hr.on 07-03-2023 Troponin I.cardiac [Mass/Vol] 27.30 pg/mL High 10.10-27.10 [facility] Comment on above: Result Comment: The 95% CI (Confidence Interval) PPV (Positive Predictive Value) for myocardial infarction in females is 38 pg/mL, in males 51 pg/mL. The results should be used in conjunction with clinical conditions of myocardial infarction.(Access High Sensitivity Troponin I Instructions For Use, [employer], March 2018) Performed By: #### 2 938245, 7019220, 2235316, 3903283, 11772354, 8449702, 61917129 ####[facility] [address] [place] [address] Troponin 3 Hr.Ordered By: [employer] on 07-03-2023 Troponin I.cardiac [Mass/Vol] 27.70 pg/mL High 10.10-27.10 [facility]isol Comment on above: Interpretive Data: T he 95% CI (Confidence Interval) PPV (Positive Predictive Value) for myocardial infarction in females is 38 pg/mL, in males 51 pg/mL. The results should be used in conjunction with clinical conditions of myocardial infarction. (Access High Sensitivity Troponin I Instructions For Use, [employer], March 2018) Result Comment: The 95% CI (Confidence Interval) PPV (Positive Predictive Value) for myocardial infarction in females is 38 pg/mL, in males 51 pg/mL. The results should be used in conjunction with clinical conditions of myocardial infarction.(Access High Sensitivity Troponin I Instructions For Use, [employer], March 2018) Performed By: #### 1 9531572 ####[facility] [address] [place] [address] UA With Cult Reflexon 2022 Bacteria LM Ql (Urine sed) TRACE Normal Trace [facility] Comment on above: Order Comment: Urina ry Catheter Insertion triggered Urinalysis With Culture Reflex order by discern. Performed By: #### 1 3900632 ####[facility] [address] [place] [address] Bilirubin Ql (U) Negative Normal Negative [facility] Comment on above: Order Comment: Urina ry Catheter Insertion triggered Urinalysis With Culture Reflex order by discern. Performed By: #### 1 4487859 ####[facility] [address] [place] [address] Clarity (U) CLEAR Normal Clear [facility] Comment on above: Order Comment: Urina ry Catheter Insertion triggered Urinalysis With Culture Reflex order by discern. Performed By: #### 1 5116836 ####[facility] [address] [place] [address] Color (U) YELLOW Normal Yellow [facility] Comment on above: Order Comment: Urina ry Catheter Insertion triggered Urinalysis With Culture Reflex order by discern. Performed By: #### 1 3685253 ####[address] [address] Epithelial cells.squamous LM.HPF (Urine sed) [#/Area] 9-10 Normal 0-2 [facility] Comment on above: Order Comment: Urina ry Catheter Insertion triggered Urinalysis With Culture Reflex order by discern. Performed By: #### 1 6002820 ####[address] [address] Glucose Test strip (U) [Mass/Vol] Negative Normal Negative [facility] Comment on above: Order Comment: Urina ry Catheter Insertion triggered Urinalysis With Culture Reflex order by discern. Performed By: #### 1 5677610 ####[facility] [address] [place] [address] Hemoglobin Ql (U) TRACE Abnormal Negative [facility] Comment on above: Order Comment: Urina ry Catheter Insertion triggered Urinalysis With Culture Reflex order by discern. Performed By: #### 1 3909252 ####[address] [address] Ketones (U) [Mass/Vol] TRACE Invalid Interpretation Code Negative [facility] Comment on above: Order Comment: Urina ry Catheter Insertion triggered Urinalysis With Culture Reflex order by discern. Performed By: #### 1 4746238 ####[address] [address] [place].plasma/[place] .RBC (Bld) [Mass ratio] 0-3 Normal 0-3 [facility] Comment on above: Order Comment: Urina ry Catheter Insertion triggered Urinalysis With Culture Reflex order by discern. Performed By: #### 1 2367566 ####[facility] [address] [place] [address] Mucus Ql (Urine sed) TRACE Normal [facility] Comment on above: Order Comment: Urina ry Catheter Insertion triggered Urinalysis With Culture Reflex order by discern. Performed By: #### 1 3476674 ####[facility] [address] [place] [address] Nitrite Ql (U) Negative Normal Negative [facility] Comment on above: Order Comment: Urina ry Catheter Insertion triggered Urinalysis With Culture Reflex order by discern. Performed By: #### 1 8855313 ####[address] [address] pH (U) 5.5 [pH] Invalid Interpretation Code 5.0-9.0 [facility] Comment on above: Order Comment: Urina ry Catheter Insertion triggered Urinalysis With Culture Reflex order by discern. Performed By: #### 1 0993969 ####[address] [address] Protein (U) [Mass/Vol] Negative Normal Negative [facility] Comment on above: Order Comment: Urina ry Catheter Insertion triggered Urinalysis With Culture Reflex order by discern. Performed By: #### 1 5622759 ####[address] [address] Specific gravity (U) [Rel density] 1.025 Invalid Interpretation Code 1.005-1.030 [facility] Comment on above: Order Comment: Urina ry Catheter Insertion triggered Urinalysis With Culture Reflex order by discern. Performed By: #### 1 5006896 ####[address] [address] Type of Urine collection method Robles Normal [facility] Comment on above: Order Comment: Urina ry Catheter Insertion triggered Urinalysis With Culture Reflex order by discern. Performed By: #### 1 5692071 ####[address] [address] Urobilinogen Qn (U) 0.2 {Judith'U}/dL Normal 0.0-1.0 [facility] Comment on above: Order Comment: Urina ry Catheter Insertion triggered Urinalysis With Culture Reflex order by discern. Performed By: #### 1 7291775 ####[facility] [address] [place] [address] WBC Auto Ql (U) Negative Normal Negative [facility] Comment on above: Order Comment: Urina ry Catheter Insertion triggered Urinalysis With Culture Reflex order by discern. Performed By: #### 1 9934141 ####[address] [place] [address] WBC LM.HPF (Urine sed) [#/Area] 0-5 Normal 0-5 [facility] Comment on above: Order Comment: Urina ry Catheter Insertion triggered Urinalysis With Culture Reflex order by discern. Performed By: #### 1 3548445 ####[facility] [address] [place] [address] XR Chest Single Viewon 07-03 XR Chest Single View Normal [facility] eGFRon 07-03-2023 GFR/1.73 sq M.predicted among non-blacks MDRD (S/P/Bld) [Vol rate/Area] 59 mL/min/1.73 m2 Normal >=59 [facility] Comment on above: Order Comment: Order added by Discern Expert. Result Comment: Eyeglass Frames Inspector luis kidney disease could be indicated at eGFR's of less than 60 mL/min/1.73m2. Kidney failure is indicated at less than 15 mL/min/1.73m2. Performed By: #### 2 743924, 4977049, 1184662, 3350493, 25057840, 7523567, 77591590 ####[facility] [address] [place] [address] CHEMISTRYOrdered By: SYSTEM SYSTEM on 07-02-2023 Albumin [...] 59 mL/min/1.73 m2 Normal >=59mL/min/1 .73 m2 [facility] Chem S Comment on above: Interpretive Data: [...] Sensitivity Troponin I Instructions For Use, Marlys Harris, March 2018) Urea nitrogen [Mass/Vol] 13 mg/dL Normal 5 - 21 mg/dL [facility] Urea nitrogen/Creatinine [Mass ratio] 13 mg/mg Normal 10 - 20 [facility] COAGULATIONOrdered By: Lan Eastman on 07-02-2023 aPTT Coag (PPP) [Time] 30.2 s Normal 25.1 - 36.5 second(s) [facility] Auto Coag Comment on above: Interpretive Data: Tim tipton 15 days - 4 weeks 1 - [...] the same coagulation reagent and instrumentation as [facility]. Currently there are no coagulation studies available worldwide for children to 14 days, and no normal ranges. Heparin therapeutic range (represented by Anti-Factor Xa activity of 0.2 - 0.4 U/mL) corresponds to PTT of 56.6 - 109.0 sec. INR Coag (PPP) [Relative time] 1.2 {INR} Invalid Interpretation Code [facility] Auto Coag Comment on above: Interpretive Data: I NR results are specifically intended to assess patients stabilized on long-term Anticoagulation therapy suggested INR s Less Intensive Anticoagulation 2.0 3.0 Conventional Range 3.0 4.5 PT Coag (PPP) [Time] 13.2 s High 9.4 - 1 2.5 second(s) [facility] Auto Coag Comment on above: Interpretive Data: [...] the same coagulation reagent and instrumentation as [facility]. Currently there are no coagulation studies available worldwide for children to 14 days, and no normal ranges. Consent for Treatmenton 06-14 Consent for Treatment [id number] [facility] [id number]#1 .00TIFF Normal [facility] HEMATOLOGYOrdered By: SYSTEM SYSTEM on 07-02-2023 Basophils/100 WBC (Bld) 0.3 % Normal 0.0 - 2.0 % [facility] HemeAutoSS Basophils/Leukocytes Auto (Bld) [Pure # fraction] [...] 4.7 E9/L Normal 2.0 - 7.5 E9/L [facility] HemeAutoSS HEMATOLOGYOrdered By: Lan Eastman on 07-02-2023 Erythrocyte distribution width (RBC) [Ratio] 13.5 % Normal 10.9 - 14.2 % [facility]eAutoSS Hematocrit (Bld) [Volume fraction] 38.5 % Normal 34.0 - 46.0 % [facility]eAutoSS Hemoglobin (Bld) [Mass/Vol] 12.7 g/dL Normal 12.0 - 16.0 gm/dL [facility] HemeAutoSS MCH (RBC) [Entitic mass] 29.7 pg Normal 27.0 - 34.0 pg [facility] HemeAutoSS MCHC (RBC) [Mass/Vol] 32.9 g/dL Normal 31.4 - 36.0 gm/dL [facility] HemeAutoSS MCV (RBC) [Entitic vol] 90.3 fL Normal 80.0 - 100.0 fL [facility] HemeAutoSS Platelet mean volume (Bld) [Entitic vol] 9.1 fL Normal 6.4 - 10.8 fL [facility] HemeAutoSS Platelets (Bld) [#/Vol] 183.0 E9/L Normal 150.0 - 500.0 E9/L [facility] HemeAutoSS RBC (Bld) [#/Vol] 4.3 E12/L Normal 4.3 - 5.9 E12/L [facility] HemeAutoSS WBC corrected for nucl RBC Auto (Bld) [#/Vol] 6.2 E9/L Normal 4.0 - 11.0 E9/L [facility]eAutoSS URINALYSISOrdered By: Lan Eastman on 07-02-2023 Bacteria LM Ql (Urine sed) Trace /HPF Normal Trace/HPF [facility] UA Auto SS Bilirubin Ql (U) Negative [...] Interpretation Code Negative [facility] UA Auto SS [place].plasma/[place] .RBC (Bld) [Mass ratio] 0-3 /HPF Normal [...] [facility] UA Auto SS Urobilinogen Qn (U) 0.9598251 {Judith'U}/dL Normal 0.0 - 1.0 EU/dL [facility] UA Auto SS WBC Auto Ql (U) Negative (07/02/23 10:18 PM) Normal Negative [facility] UA Auto SS WBC LM.HPF (Urine sed) [#/Area] 0-5 /HPF Normal 0-5/HPF [facility] UA Auto SS CT Abdomen/Pelvis w/o Contra ston 07-01-2023 CT Abdomen/Pelvis w/o Contrast Normal [facility] Discharge Instructionson Discharge Instructions [id number] .00TIFF Normal [facility] ED Clinical Summaryon 2022 ED Clinical Summary Normal [facility] ED Note-Physicianon 07-01-20 ED Note-Physician Normal [facility] Comment on above: Result Comment: Elec tronically Signed By: Koby Masterson DO\Date and Time Signed: 07/01/23 01:03 EST ED Patient Education Noteon 07-01-2023 ED Patient Education Note Normal [facility] ED Patient Summaryon 023 ED Patient Summary Normal [facility] RAD - Preliminary Cat Scan R eporton 07-01-2023 RAD - Preliminary Cat Scan Report [id number]#1 .00TIFF Normal [facility] Auto Diffon 06-30-2023 Basophils/100 WBC (Bld) 0.8 % Normal 0.0-2.0 [facility] Comment on above: Order Comment: Order Added by Discern Expert. Performed By: #### 2 676780, 07496115, 5611003, 4457343, 6885897, 4334610 ####[facility] [address] [place] [address] Basophils/Leukocytes Auto (Bld) [Pure # fraction] 0.0 E9/L Normal 0.0-0.2 [facility] Comment on above: Order Comment: Order Added by Discern Expert. Performed By: #### 2 783756, 74344470, 3127157, 0075213, 7737012, 0068433 ####[facility] [address] [place] [address] Eosinophils/100 WBC (Bld) 0.2 % Normal 0.0-8.0 [facility] Comment on above: Order Comment: Order Added by Discern Expert. Performed By: #### 2 664205, 08086725, 1776039, 6111771, 9925325, 2788954 ####[facility] [address] [place], [place] [address] Eosinophils/Leukocytes Auto (Bld) [Pure # fraction] 0.0 E9/L Normal 0.0-0.5 [facility] Comment on above: Order Comment: Order Added by Discern Expert. Performed By: #### 2 012973, 91403764, 6558200, 4964580, 5790400, 3175304 ####[address] [address] Lymphocytes/100 WBC (Bld) 26.7 % Normal 14.0-50.0 [facility] Comment on above: Order Comment: Order Added by Discern Expert. Performed By: #### 2 661745, 12501469, 6813554, 3420713, 8282977, 3012546 ####[address] [address] Lymphocytes/Leukocytes Auto (Bld) [Pure # fraction] 1.2 E9/L Normal 1.0-4.0 [facility] Comment on above: Order Comment: Order Added by Discern Expert. Performed By: #### 2 251062, 57150474, 0099356, 8800193, 2118484, 4262828 ####[address] [address] Monocytes/100 WBC (Bld) 9.8 % Normal 4.0-14.0 [facility] Comment on above: Order Comment: Order Added by Discern Expert. Performed By: #### 2 382213, 60415991, 5587458, 8675699, 2985742, 7090508 ####[address] [place] [address] Monocytes/Leukocytes Auto (Bld) [Pure # fraction] 0.4 E9/L Normal 0.2-1.0 [facility] Comment on above: Order Comment: Order Added by Discern Expert. Performed By: #### 2 357125, 04637118, 6893553, 4950702, 1717844, 4729144 ####[address] [place] [address] Neutrophils/100 WBC (Bld) 62.5 % Normal 36.0-75.0 [facility] Comment on above: Order Comment: Order Added by Discern Expert. Performed By: #### 2 113230, 16758630, 6095293, 1568405, 5146183, 2021302 ####[address] [place] [address] Neutrophils/Leukocytes Auto (Bld) [Pure # fraction] 2.7 E9/L Normal 2.0-7.5 [facility] Comment on above: Order Comment: Order Added by Discern Expert. Performed By: #### 2 837278, 37967160, 7074289, 5507816, 3706886, 0765865 ####[address] [place] [address] BMPon 06-30-2023 Creatinine [Mass/Vol] 0.8 mg/dL Normal 0.5-1.3 [facility] Comment on above: Performed By: #### 2 198645, 71301355, 0239214, 9132692, 0241685, 5865756 ####[address] [place] [address] Urea nitrogen [Mass/Vol] 12 mg/dL Normal 5-21 [facility] Comment on above: Performed By: #### 2 967636, 27298760, 5658683, 9115009, 0675991, 9456222 ####[address] [place] [address] Urea nitrogen/Creatinine [Mass ratio] 15 No Units Normal 10-20 [facility] Comment on above: Performed By: #### 2 504821, 44021566, 3715200, 5946054, 3447827, 4261208 ####[facility] [address] [place] [address] Anion gap [Moles/Vol] 13 mmol/L Normal 6-16 [facility] Comment on above: Performed By: #### 2 688114, 27205485, 9853125, 7277250, 6845031, 6220985 ####[facility] [address] [place] [address] Calcium [Mass/Vol] 9.5 mg/dL Normal 8.9-11.1 [facility] Comment on above: Performed By: #### 2 249230, 00657097, 5076058, 5805248, 4132410, 3877828 ####[facility] [address] [place] [address] Chloride [Moles/Vol] 103 mmol/L Normal 101-111 [facility] Comment on above: Performed By: #### 2 200906, 74583227, 5768734, 3794195, 8495058, 9703731 ####[facility] [address] [place] [address] CO2 [Moles/Vol] 27 mmol/L Normal 21-31 [facility] Comment on above: Performed By: #### 2 917570, 15664894, 9455967, 7754292, 6654775, 5340235 ####[facility] [address] [place] [address] Glucose [Mass/Vol] 110 mg/dL Normal 55-199 [facility] Comment on above: Result Comment: If t his glucose result represents a fasting glucose, interpretation should refer to the following reference range: 55-99 mg/dL Performed By: #### 2 353206, 74574387, 6173127, 4705836, 3915736, 6099702 ####[facility] [address] [place] [address] Potassium [Moles/Vol] 4.1 mmol/L Normal 3.5-5.3 [facility] Comment on above: Performed By: #### 2 605539, 24350075, 7345969, 6900899, 9678826, 3847677 ####[facility] [address] [facility] [place] [address] Sodium [Moles/Vol] 139 mmol/L Normal 135-145 [facility] Comment on above: Performed By: #### 2 991521, 08608003, 7273658, 9228928, 6480002, 7054976 ####[address] [place] [address] CBC w/ Auto Diffon 3 Erythrocyte distribution width (RBC) [Ratio] 13.7 % Normal 10.9-14.2 [facility] Comment on above: Performed By: #### 2 946860, 45216375, 3130234, 2030018, 3944722, 8103474 ####[address] [place] [address] Hematocrit (Bld) [Volume fraction] 38.0 % Normal 34.0-46.0 [facility] Comment on above: Performed By: #### 2 001451, 41874610, 6585463, 9344652, 2974733, 1161801 ####[address] [address] Hemoglobin (Bld) [Mass/Vol] 12.5 g/dL Normal 12.0-16.0 [facility] Comment on above: Performed By: #### 2 613949, 22718993, 5313057, 0918818, 6999640, 6027405 ####[address] [address] MCH (RBC) [Entitic mass] 29.9 pg Normal 27.0-34.0 [facility] Comment on above: Performed By: #### 2 930125, 96330662, 0745755, 8292595, 1645324, 8785087 ####[address] [place] [address] MCHC (RBC) [Mass/Vol] 32.9 g/dL Normal 31.4-36.0 [facility] Comment on above: Performed By: #### 2 644185, 11584079, 0620432, 4216494, 6265728, 2032997 ####[address] [address] MCV (RBC) [Entitic vol] 90.9 fL Normal 80.0-100.0 [facility] Comment on above: Performed By: #### 2 022077, 49522261, 0015129, 8490921, 9682996, 0979326 ####[facility] [address] [place] [address] Platelet mean volume (Bld) [Entitic vol] 8.7 fL Normal 6.4-10.8 [facility] Comment on above: Performed By: #### 2 943896, 86413372, 3933569, 3413963, 1126069, 8012752 ####[address] [place] [address] Platelets (Bld) [#/Vol] 184.0 E9/L Normal 150.0-500.0 [facility] Comment on above: Performed By: #### 2 516871, 33532064, 3750664, 2404812, 5005094, 2574000 ####[facility] [address] [place] [address] RBC (Bld) [#/Vol] 4.2 E12/L Low 4.3-5.9 [facility] Comment on above: Performed By: #### 2 192882, 07434637, 1264197, 7418179, 4795236, 4869825 ####[address] [place] [address] WBC corrected for nucl RBC Auto (Bld) [#/Vol] 4.4 E9/L Normal 4.0-11.0 [facility] Comment on above: Performed By: #### 2 859890, 70641766, 1595750, 9016301, 7751023, 3456914 ####[address] [place] [address] CHEMISTRYOrdered By: SYSTEM SYSTEM on 06-30-2023 Albumin [Mass/Vol] 3.8 g/dL Normal 3.3 - 5.0 gm/dL [facility] Remisol Albumin/Globulin [Mass ratio] 1.3 {ratio} Normal [...] 0.8 mg/dL Normal 0.5 - 1.3 mg/dL FT Remisol GFR/1.73 sq M.predicted among non-blacks MDRD (S/P/Bld) [Vol rate/Area] 77 mL/min/1.73 m2 Normal >=59mL/min/1 .73 m2 [facility] Chem S Comment on above: Interpretive Data: [...] Treatmenton 06-14 Consent for Treatment [id number]#1 .00TIFF Normal [facility] Consent for Treatment [id number] 311 [id number]#1 .00TIFF Normal [facility] HEMATOLOGYOrdered By: SYSTEM SYSTEM on 06-30-2023 [...] 62.5 % Normal 36.0 - 75.0 % FT HemeAutoSS Neutrophils/Leukocytes Auto (Bld) [Pure # fraction] 2.7 E9/L Normal 2.0 - 7.5 E9/L FT HemeAutoSS HEMATOLOGYOrdered By: Lan Eastman on 06-30-2023 Erythrocyte distribution width (RBC) [Ratio] 13.7 % Normal 10.9 - 14.2 % FT HemeAutoSS Hematocrit (Bld) [Volume fraction] 38.0 % Normal 34.0 - 46.0 % FT HemeAutoSS Hemoglobin (Bld) [Mass/Vol] 12.5 g/dL Normal 12.0 - 16.0 gm/dL [facility] HemeAutoSS MCH (RBC) [Entitic mass] 29.9 pg Normal 27.0 - 34.0 pg [facility] HemeAutoSS MCHC (RBC) [Mass/Vol] 32.9 g/dL Normal 31.4 - 36.0 gm/dL FT HemeAutoSS MCV (RBC) [Entitic vol] 90.9 fL Normal 80.0 - 100.0 fL FT HemeAutoSS Platelet mean volume (Bld) [Entitic vol] 8.7 fL Normal 6.4 - 10.8 fL FT HemeAutoSS Platelets (Bld) [#/Vol] 184.0 E9/L Normal 150.0 - 500.0 E9/L [facility] HemeAutoSS RBC (Bld) [#/Vol] 4.2 E12/L Low 4.3 - 5.9 E12/L [facility] HemeAutoSS WBC corrected for nucl RBC Auto (Bld) [#/Vol] 4.4 E9/L Normal 4.0 - 11.0 E9/L FT HemeAutoSS Hep Func Panelon 06-30-2023 Bilirubin.indirect [Mass or moles/Vol] UTC Abnormal 0.1-0.9 [facility] Comment on above: Result Comment: Resu lt verified by Discern Rule. Performed result UTC (Unable to Calculate) was sent as an Alpha code due the inability to calculate a valid numeric value. Performed By: #### 2 303685, 06144937, 9337176, 4364968, 1348978, 0489921 ####[facility] [address] [place] [address] Albumin [Mass/Vol] 3.8 g/dL Normal 3.3-5.0 [facility] Comment on above: Performed By: #### 2 765084, 43087428, 2801820, 3379523, 2794985, 1744653 ####[facility] [address] [place] [address] Albumin/Globulin (S) [Mass conc ratio] 1.3 Normal 1.1-2.2 [facility] Comment on above: Performed By: #### 2 435032, 41485971, 8454546, 2525436, 6210613, 6998205 ####[address] [place] [address] ALP [Catalytic activity/Vol] 56 Int._Unit/L Normal 21-98 [facility] Comment on above: Performed By: #### 2 300612, 12221756, 6332649, 6583087, 4301270, 1794674 ####[address] [place] [address] ALT No additional P-5'-P [Catalytic activity/Vol] 50 Int._Unit/L High 6-46 [facility] Comment on above: Performed By: #### 2 529065, 20078796, 4184149, 4243763, 3926979, 7335705 ####[address] [place] [address] AST [Catalytic activity/Vol] 45 Int._Unit/L High 5-43 [facility] Comment on above: Performed By: #### 2 173968, 21804587, 3315199, 3688667, 3819216, 0733840 ####[facility] [address] [place] [address] Bilirubin [Mass/Vol] 0.5 mg/dL Normal 0.0-1.1 [facility] Comment on above: Performed By: #### 2 641703, 28643473, 7433668, 2754098, 1472418, 7126777 ####[facility] [address] [place] [address] Globulin (S) [Mass/Vol] 3.0 g/dL Normal 1.4-4.0 [facility] Comment on above: Performed By: #### 2 685732, 24129954, 9926514, 2480801, 9702768, 9423854 ####[facility] [address] [place] [address] Protein [Mass/Vol] 6.8 g/dL Normal 6.0-7.8 [facility] Comment on above: Performed By: #### 2 538524, 58900922, 5109797, 5578976, 0624063, 4590844 ####[address] [address] Bilirubin.direct [Mass/Vol] mg/dL Normal 0.1-0.4 [facility] Comment on above: Performed By: #### 2 669376, 40153623, 6950866, 7669321, 5980195, 0143606 ####[facility] [address] [place] [address] Lipase Levelon 06-30-2023 Lipase [Catalytic activity/Vol] 31 U/L Normal 13-58 [facility] Comment on above: Performed By: #### 2 065162, 31877473, 0861193, 0273451, 3251378, 9134383 ####[facility] [address] [place] [address] UA With Cult Reflexon 2022 Bacteria LM Ql (Urine sed) TRACE Normal Trace [facility] Comment on above: Performed By: #### 1 5789117 ####[address] [address] Bilirubin Ql (U) Negative Normal Negative [facility] Comment on above: Performed By: #### 1 8465319 ####[address] [address] Clarity (U) CLEAR Normal Clear [facility] Comment on above: Performed By: #### 1 4552541 ####[facility] [address] [place] [address] Color (U) YELLOW Normal Yellow [facility] Comment on above: Performed By: #### 1 5144093 ####[address] [address] Epithelial cells.squamous LM.HPF (Urine sed) [#/Area] 0-2 Normal 0-2 [facility] Comment on above: Performed By: #### 1 4104691 ####[address] [address] Glucose Test strip (U) [Mass/Vol] Negative Normal Negative [facility] Comment on above: Performed By: #### 1 4990784 ####[address] [address] Hemoglobin Ql (U) TRACE Abnormal Negative [facility] Comment on above: Performed By: #### 1 3510025 ####[address] [address] Ketones (U) [Mass/Vol] Negative Normal Negative [facility] Comment on above: Performed By: #### 1 2375418 ####[address] [address] [place].plasma/[place] .RBC (Bld) [Mass ratio] 0-3 Normal 0-3 [facility] Comment on above: Performed By: #### 1 1414287 ####[address] [address] Nitrite Ql (U) Negative Normal Negative [facility] Comment on above: Performed By: #### 1 9512966 ####[address] [address] pH (U) 6.5 [pH] Invalid Interpretation Code 5.0-9.0 [facility] Comment on above: Performed By: #### 1 3506354 ####[address] [address] Protein (U) [Mass/Vol] Negative Normal Negative [facility] Comment on above: Performed By: #### 1 8430038 ####[facility] [address] [place] [address] Specific gravity (U) [Rel density] <=1.005 Invalid Interpretation Code 1.005-1.030 [facility] Comment on above: Performed By: #### 1 3037287 ####[facility] [address] [place] [address] Type of Urine collection method Clean Catch Normal [facility] Comment on above: Performed By: #### 1 5745953 ####[facility] [address] [place] [address] Urobilinogen Qn (U) 0.2 {Juidth'U}/dL Normal 0.0-1.0 [facility] Comment on above: Performed By: #### 1 2901463 ####[address] [address] WBC Auto Ql (U) Negative Normal Negative [facility] Comment on above: Performed By: #### 1 7363194 ####[facility] [address] [place] [address] WBC LM.HPF (Urine sed) [#/Area] 0-5 Normal 0-5 [facility] Comment on above: Performed By: #### 1 6911796 ####[facility] [address] [place] [address] URINALYSISOrdered By: Brian Davis on 06-30-2023 Bacteria LM Ql (Urine sed) Trace /HPF Normal Trace/HPF FT UA Auto SS Bilirubin Ql (U) Negative (06/30/23 8:00 PM) Normal Negative [facility] UA Auto SS Clarity (U) Clear (06/30/23 8:00 PM) Normal Clear [facility] UA Auto SS Color (U) Yellow (06/30/23 8:00 PM) Normal Yellow [facility] UA Auto SS Epithelial cells.squamous LM.HPF (Urine sed) [#/Area] 0-2 /HPF Normal 0-2/HPF [facility] UA Aut o SS Glucose Test strip (U) [Mass/Vol] Negative (06/30/23 8:00 PM) Normal Negative [facility] UA Auto SS Hemoglobin Ql (U) Trace *ABN* (06/30/23 8:00 PM) Invalid Interpretation Code Negative [facility] UA Auto SS Ketones (U) [Mass/Vol] Negative (06/30/23 8:00 PM) Normal Negative [facility] UA Auto SS [place].plasma/[place] .RBC (Bld) [Mass ratio] 0-3 /HPF Normal [...] [facility] UA Auto SS Urobilinogen Qn (U) 0.3704248 {Judith'U}/dL Normal 0.0 - 1.0 EU/dL [facility] UA Auto SS WBC Auto Ql (U) Negative (06/30/23 8:00 PM) Normal Negative [facility] UA Auto SS WBC LM.HPF (Urine sed) [#/Area] 0-5 /HPF Normal 0-5/HPF [facility] UA Auto SS eGFRon 06-30-2023 GFR/1.73 sq M.predicted among non-blacks MDRD (S/P/Bld) [Vol rate/Area] 77 mL/min/1.73 m2 Normal >=59 [facility] Comment on above: Order Comment: Order added by Discern Expert. Result Comment: Eyeglass Frames Inspector luis kidney disease could be indicated at eGFR's of less than 60 mL/min/1.73m2. Kidney failure is indicated at less than 15 mL/min/1.73m2. Performed By: #### 2 492353, 10646355, 1585346, 1403858, 9279356, 5878305 ####[facility] [address] [place] [address] Consent for Procedure/Surger yon 05-23-2023 Consent for Procedure/Surgery [id number]#1 .00TIFF Normal [facility] Consent for Treatmenton 05-14 Consent for Treatment [id number]#1 .00TIFF Normal [facility] IntraOperative Documentson IntraOperative Documents [id number]#1 .00TIFF Normal [facility] Main OR Intraoperative Recor don 05-23-2023 Main OR Intraoperative Record Normal [facility] Main OR Preoperative Recordo n 05-23-2023 Main OR Preoperative Record Normal [facility] Operative Reporton Operative Report Normal [facility] Comment on above: Result Comment: Elec tronically Signed By: Micheline BROOKS MD\.br\Date and Time Signed: 05/23/23 15:51 EDT Patient Educationon 05-23-20 Patient Education Normal [facility] Ambulatory Visit Summaryon 0 04-26-2023 Ambulatory Visit Summary Normal [facility] Patient Educationon 04-26-20 Patient Education Normal [facility] Urology Office/Clinic Noteon 04-26-2023 Urology Office/Clinic Note Normal [facility] Comment on above: Result Comment: Elec tronically Signed By: Micheline BROOKS MD\.br\Date and Time Signed: 04/26/23 16:11 EDT\.br\Electronically Co-Signed By: Can Bautista\.br\Date and Time Co-Signed: 04/26/23 16:10 EDT ED Note-Physicianon 04-07-20 ED Note-Physician Normal [facility] Comment on above: Result Comment: Elec tronically Signed By: Molina Mendoza PA-C\.br\Date and Time Signed: 04/04/23 16:28 EDT\.br\Electronically Co-Signed By: Jeff Cross DO\.br\Date and Time Co-Signed: 04/07/23 07:[address] Abdomen/Pelvis w/o Contra ston 04-04-2023 CT Abdomen/Pelvis w/o Contrast [facility] Consent for Treatmenton 03-15 Consent for Treatment [id number]#1 .00CD:127 Normal [facility] Discharge Instructionson Discharge Instructions [id number]# 1.00CD:127 Normal [facility] ED Clinical Summaryon 2022 ED Clinical Summary Normal [facility] ED Patient Education Noteon 04-04-2023 ED Patient Education Note Normal [facility] ED Patient Summaryon 023 ED Patient Summary [facility] ED Traumaon 04-04-2023 ED Trauma [id number]# 1.00CD:127 Normal [facility] XR Shoulder Complete Righton 04-04-2023 XR Shoulder Complete Right [facility] Discharge Instructionson Discharge Instructions [id number]#1 .00CD:127 Normal [facility] ED Clinical Summaryon 2022 ED Clinical Summary Normal [facility] ED Note-Nursingon 01-29-2023 ED Note-Nursing [facility] ED Note-Physicianon 01-30-20 ED Note-Physician Normal [facility] Comment on above: Result Comment: Elec tronically Signed By: Med Medeiros PA-C.br\Date and Time Signed: 01/28/23 22:46 EDT\.br\Electronically Co-Signed By: Med Medeiros PA-Cbr\Date and Time Co-Signed: 01/28/23 22:55 EDT\.br\Electronically Co-Signed By: Layton Crawford M.D.\.br\Date and Time Co-Signed: 01/29/23 01:02 EDT ED Patient Education Noteon 01-29-2023 ED Patient Education Note Normal [facility] ED Patient Summaryon 023 ED Patient Summary Normal [facility] UA With Cult Reflexon 2022 Bilirubin Ql (U) Negative Normal Negative [facility] Comment on above: Performed By: #### 1 [id number] ####[facility] [address] [place] [address] Clarity (U) CLEAR Normal Clear [facility] Comment on above: Performed By: #### 1 1299004 ####[facility] [address] [place] [address] Color (U) YELLOW Normal Yellow [facility] Comment on above: Performed By: #### 1 4853930 ####[facility] [address] [place] [address] Epithelial cells.squamous LM.HPF (Urine sed) [#/Area] 3-4 Normal 0-2 [facility] Comment on above: Performed By: #### 1 4481053 ####[facility] [address] [place] [address] Glucose Test strip (U) [Mass/Vol] Negative Normal Negative [facility] Comment on above: Performed By: #### 1 1961370 ####[facility] [address] [place] [address] Hemoglobin Ql (U) 1+ Abnormal Negative [facility] Comment on above: Performed By: #### 1 9929806 ####[facility] [address] [place] [address] Ketones (U) [Mass/Vol] Negative Normal Negative [facility] Comment on above: Performed By: #### 1 5333043 ####[facility] [address] [place] [address] [place].plasma/[place] .RBC (Bld) [Mass ratio] 0-3 Normal 0-3 [facility] Comment on above: Performed By: #### 1 7496423 ####[facility] [address] [place] [address] Nitrite Ql (U) Negative Normal Negative [facility] Comment on above: Performed By: #### 1 4987703 ####[facility] [address] [place] [address] pH (U) 6.0 [pH] Invalid Interpretation Code 5.0-9.0 [facility] Comment on above: Performed By: #### 1 6899751 ####[facility] [address] [place] [address] Protein (U) [Mass/Vol] Negative Normal Negative [facility] Comment on above: Performed By: #### 1 2627016 ####[facility] [address] [place] [address] Specific gravity (U) [Rel density] 1.025 Invalid Interpretation Code 1.005-1.030 [facility] Comment on above: Performed By: #### 1 9950273 ####[address] [address] Type of Urine collection method Clean Catch Normal [facility] Comment on above: Performed By: #### 1 5451356 ####[facility] [address] [place] [address] Urobilinogen Qn (U) 1.0 {Judith'U}/dL Normal 0.0-1.0 [facility] Comment on above: Performed By: #### 1 7663805 ####[facility] [address] [place] [address] WBC Auto Ql (U) Negative Normal Negative [facility] Comment on above: Performed By: #### 1 7740267 ####[facility] [address] [place] [address] WBC LM.HPF (Urine sed) [#/Area] 0-5 Normal 0-5 [facility] Comment on above: Performed By: #### 1 3854656 ####[facility] [address] [place] [address] XR Hand 3+ Views Lefton 01-12 XR Hand 3+ Views Left Normal Fis [facility] Consent for Treatmenton 01-12 Consent for Treatment [id number] [facility] [id number]#1 .00CD:127 Normal [facility] URINALYSISOrdered By: Lan Eastman on 01-28-2023 Bilirubin [...] PM) Normal Negative [facility] UA Auto SS [place].plasma/[place] .RBC (Bld) [Mass ratio] 0-3 /HPF Normal [...] [facility] UA Auto SS Urobilinogen Qn (U) 1.4245238 {Judith'U}/dL Normal 0.0 - 1.0 EU/dL [facility] UA Auto SS WBC Auto Ql (U) Negative (01/28/23 11:04 PM) Normal Negative [facility] UA Auto SS WBC LM.HPF (Urine sed) [#/Area] 0-5 /HPF Normal 0-5/HPF [facility] UA Auto SS Coding Summary.on 12-08-2022 Coding Summary. Normal [facility] MA Mamm Screen w/CAD if perf and 3D Bilon 12-06-2022 MA Mamm Screen w/CAD if perf and 3D Zac Normal [facility] Consent for Treatmenton 11-13 Consent for Treatment [id number]#1 .00CD:127 [facility] Coding Summary.on 10-27-2022 Coding Summary. Normal [facility] Consent for Procedure/Surger yon 10-25-2022 Consent for Procedure/Surgery [id number]#1 .00CD:127 [facility] Consent for Treatmenton 10-12 Consent for Treatment [id number]#1 .00CD:127 [facility] IntraOperative Documentson 0 10-25-2022 IntraOperative Documents [id number]#1 .00CD:127 [facility] Main OR Intraoperative Recor don 10-25-2022 Main OR Intraoperative Record [facility] Main OR Preoperative Recordo n 10-25-2022 Main OR Preoperative Record [facility] Operative Reporton Operative Report Normal [facility] Comment on above: Result Comment: Elec tronically Signed By: CECILIA MCMAHON, Micheline Hurtado.zak\Date and Time Signed: 10/25/22 10:30 EDT Patient Educationon 10-26-19 Patient Education [facility] Physician Orderon 10-20-2022 Physician Order [id number]#1 .00CD:127 [facility] Q - SARS CoV2 COVID 19 Ab Ig Clarence 08-20-2021 SARS-CoV-2 (COVID-19) Ab IA Qn 25.84 index High <1.00 [facility] Specialist Comment on above: Order Comment: [facility] Testing performed at: Q, [facility], [address], [address] [place], [address], Transaction Manager: Ab Vincent MD [facility] Collection Date/Time: [facility] [...] providers and patients using the following websites: [email or web address] Healthcare Providers: For additional information please refer to: http://education.PingMe.Zairge/faq/CIF660 (This link is being provided for informational/educational purposes only.) This test has been authorized by the FDA under an Emergency Use Authorization (EUA) for use by authorized laboratories. The FDA authorized labeling is available on the [employer] website: www.Pixsta.Zairge/Covid19. Performed By: #### 3 [id number] #### [facility] Default [address] [place] [address] Reference Laboratory Testing Ordered By: Urban MappingUser on 08-12-2021 SARS-CoV-2 (COVID-19) RNA JORDAN+probe Ql (Resp) Not detected Invalid Interpretation Code Not Detected [facility] SendOutsSS Comment on above: Result Comment: This nucleic acid amplification test was developed and its performance characteristics determined by [employer]. Nucleic acid amplification tests include RT-PCR and [...] detected) result in this assay. Performed at: [address] [id number] PhD Emily Fraser Vital Signs Date Time Vital Sign Value Performing Clinician Facility 10-05-2023 21:54-0500 Diastolic blood pressure 81 mm[Hg] Koby Ramirezligini [facility] 10-05-2023 21:54-0500 Heart rate 75 /min Kaylinn Dokken [facility] 10-05-2023 21:54-0500 Respiratory rate 19 /min Kaylinn Dokken [facility] 10-05-2023 21:54-0500 SaO2% (BldA) [Mass fraction] 100 % Kaylinn Dokken [facility] 10-05-2023 21:54-0500 Systolic blood pressure 144 mm[Hg] Kaylinn Dokken [facility] 10-05-2023 18:04-0500 Body temperature 97.7 [degF] Kaylinn Dokken [facility] 10-05-2023 18:04-0500 Diastolic blood pressure 78 mm[Hg] Kaylinn Dokken [facility] 10-05-2023 18:04-0500 Heart rate 95 /min Kaylinn Dokken [facility] 10-05-2023 18:04-0500 Respiratory rate 22 /min Kaylinn Dokken [facility] 10-05-2023 18:04-0500 SaO2% (BldA) [Mass fraction] 100 % Kaylinn Dokken [facility] 10-05-2023 18:04-0500 Systolic blood pressure 131 mm[Hg] Kaylinn Dokken [facility] 09-26-2023 09:13-0500 Body height 165.1 cm Ana Rivas APRN.ROLLER HAND Work Phone: [facility] 09-26-2023 09:13-0500 Body weight 50.8 kg Ana Franklin [employer] MACHINE OPERATOR.ROLLER HAND Work Phone: [facility] 09-26-2023 09:13-0500 Diastolic blood pressure 57 mm[Hg] Ana Franklin GIMP [employer]TON[employer] MACHINE OPERATOR.ROLLER HAND Work Phone: [facility] 09-26-2023 09:13-0500 Heart rate 72 /min Ana Franklin GIMP BUTTON[employer] MACHINE OPERATOR.ROLLER HAND Work Phone: [facility] 09-26-2023 09:13-0500 Respiratory rate 20 /min Ana Franklin GIMP BUTTONHO[employer] MACHINE OPERATOR.ROLLER HAND Work Phone: [facility] 09-26-2023 09:13-0500 SaO2% (BldA) [Mass fraction] 98 % Ana Franklin GIMP BUTTON[employer] MACHINE OPERATOR.ROLLER HAND Work Phone: [facility] 09-26-2023 09:13-0500 Systolic blood pressure 118 mm[Hg] Ana Franklin GIMP BUTTONHO[employer] MACHINE OPERATOR.ROLLER HAND Work Phone: [facility] 09-18-2023 17:51-0500 Body height 165.1 cm Peggy Nazario MD Work Phone: [facility] 09-18-2023 17:51-0500 Body mass index (BMI) [Ratio] 19.34 kg/m2 Peggy Nazario MD Work Phone: [facility] 09-18-2023 17:51-0500 Body temperature 98.01 [degF] Peggy Nazario MD Work Phone: [facility] 09-18-2023 17:51-0500 Body weight 52.71 kg Peggy Nazario MD Work Phone: [facility] 09-18-2023 17:51-0500 Diastolic blood pressure 66 mm[Hg] Peggy Nazario MD Work Phone: [facility] 09-18-2023 17:51-0500 Heart rate 75 /min Peggy Nazario MD Work Phone: [facility] 09-18-2023 17:51-0500 SaO2% (BldA) [Mass fraction] 99 % Peggy Nazario MD Work Phone: [facility] 09-18-2023 17:51-0500 Systolic blood pressure 136 mm[Hg] Peggy Nazario MD Work Phone: [facility] 09-17-2023 06:00-0500 Diastolic blood pressure 60 mm[Hg] Parveen Armen [facility] 09-17-2023 06:00-0500 Heart rate 61 /min Parveen Armen [facility] 09-17-2023 06:00-0500 Mean blood pressure 79 mm[Hg] Parveen Armen [facility] 09-17-2023 06:00-0500 Respiratory rate 11 /min Parveen Armen [facility] 09-17-2023 06:00-0500 SaO2% (BldA) [Mass fraction] 100 % Parveen Armen [facility] 09-17-2023 06:00-0500 Systolic blood pressure 118 mm[Hg] Parveen Armen [facility] 09-17-2023 05:06-0500 Body temperature 96.98 [degF] Parveen Armen [facility] 09-17-2023 05:06-0500 Diastolic blood pressure 58 mm[Hg] Parveen Armen [facility] 09-17-2023 05:06-0500 gluc 79 mg/dL Parveen Armen [facility] 09-17-2023 05:06-0500 gluc Parveen Armen [facility] 09-17-2023 05:06-0500 Heart rate 85 /min Parveen Armen [facility] 09-17-2023 05:06-0500 Respiratory rate 20 /min Parveen Armen [facility] 09-17-2023 05:06-0500 SaO2% (BldA) [Mass fraction] 98 % Parveen Armen [facility] 09-17-2023 05:06-0500 Systolic blood pressure 140 mm[Hg] Parveen Armen [facility] 09-12-2023 06:38-0500 Diastolic blood pressure 93 mm[Hg] Parveen Armen [facility] 09-12-2023 06:38-0500 Heart rate 78 /min Parveen Armen [facility] 09-12-2023 06:38-0500 Mean blood pressure 109 mm[Hg] Parveen Armen [facility] 09-12-2023 06:38-0500 Respiratory rate 13 /min Parveen Armen [facility] 09-12-2023 06:38-0500 SaO2% (BldA) [Mass fraction] 98 % Parveen Armen [facility] 09-12-2023 06:38-0500 Systolic blood pressure 142 mm[Hg] Parveen Armen [facility] 09-12-2023 05:58-0500 Diastolic blood pressure 96 mm[Hg] Parveen Armen [facility] 09-12-2023 05:58-0500 Heart rate 55 /min Parveen Armen [facility] 09-12-2023 05:58-0500 Mean blood pressure 112 mm[Hg] Parveen Armen [facility] 09-12-2023 05:58-0500 Respiratory rate 16 /min Parveen Armen [facility] 09-12-2023 05:58-0500 SaO2% (BldA) [Mass fraction] 100 % Parveen Armen [facility] 09-12-2023 05:58-0500 Systolic blood pressure 144 mm[Hg] Parveen Armen [facility] 09-12-2023 04:56-0500 Diastolic blood pressure 77 mm[Hg] Parveen Armen [facility] 09-12-2023 04:56-0500 Heart rate 60 /min Parveen Armen [facility] 09-12-2023 04:56-0500 Mean blood pressure 94 mm[Hg] Parveen Armen [facility] 09-12-2023 04:56-0500 Respiratory rate 18 /min Parveen Armen [facility] 09-12-2023 04:56-0500 SaO2% (BldA) [Mass fraction] 100 % Parveen Armen [facility] 09-12-2023 04:56-0500 Systolic blood pressure 129 mm[Hg] Parveen Armen [facility] 09-12-2023 04:27-0500 gluc 96 mg/dL Parveen Armen [facility] 09-12-2023 04:27-0500 gluc Parveen Armen [facility] 09-12-2023 04:13-0500 Body temperature 96.98 [degF] Parveen Armen [facility] 09-12-2023 04:13-0500 Heart rate 83 /min Parveen Armen [facility] 09-12-2023 04:13-0500 Respiratory rate 16 /min Parveen Ayers [facility] 07-21-2023 06:46-0500 Blood Pressure Location Taylor HENRIQUEZ [facility] 07-21-2023 06:46-0500 Diastolic blood pressure 57 mm[Hg] Taylor HENRIQUEZ [facility] 07-21-2023 06:46-0500 Heart rate 81 /min Taylor HENRIQUEZ [facility] 07-21-2023 06:46-0500 Respiratory rate 18 /min Taylor HENRIQUEZ [facility] 07-21-2023 06:46-0500 SaO2% (BldA) [Mass fraction] 100 % Taylor HENRIQUEZ [facility] 07-21-2023 06:46-0500 Systolic blood pressure 118 mm[Hg] Taylor HENRIQUEZ [facility] 07-20-2023 09:56-0500 Blood Pressure Location Taylor HENRIQUEZ [facility] 07-20-2023 09:56-0500 Diastolic blood pressure 52 mm[Hg] Taylor HENRIQUEZ [facility] 07-20-2023 09:56-0500 Heart rate 62 /min Taylor HENRIQUEZ [facility] 07-20-2023 09:56-0500 SaO2% (BldA) [Mass fraction] 98 % Taylor HENRIQUEZ [facility] 07-20-2023 09:56-0500 Systolic blood pressure 105 mm[Hg] Taylor HENRIQUEZ [facility] 07-07-2023 12:38-0500 Diastolic blood pressure 59 mm[Hg] Jeff Cross [facility] 07-07-2023 12:38-0500 Heart rate 94 /min Jeff Tay [facility] 07-07-2023 12:38-0500 Respiratory rate 13 /min Jeff Tay [facility] 07-07-2023 12:38-0500 SaO2% (BldA) [Mass fraction] 94 % Jeff Tay [facility] 07-07-2023 12:38-0500 Systolic blood pressure 123 mm[Hg] Jeff Tay [facility] 07-07-2023 12:00-0500 Diastolic blood pressure 83 mm[Hg] Jeff Tay [facility] 07-07-2023 12:00-0500 Heart rate 102 /min Jeff Tay [facility] 07-07-2023 12:00-0500 Mean blood pressure 96 mm[Hg] Jeff Tay [facility] 07-07-2023 12:00-0500 Respiratory rate 17 /min Jeff Tay [facility] 07-07-2023 12:00-0500 SaO2% (BldA) [Mass fraction] 96 % Jeff Tay [facility] 07-07-2023 11:34-0500 Diastolic blood pressure 73 mm[Hg] Jeff Tay [facility] 07-07-2023 11:34-0500 Heart rate 93 /min Jeff Tay [facility] 07-07-2023 11:34-0500 Respiratory rate 18 /min Jeff Tay [facility] 07-07-2023 11:34-0500 SaO2% (BldA) [Mass fraction] 94 % Jeff Cross [facility] 07-07-2023 11:34-0500 Systolic blood pressure 109 mm[Hg] Jeff Cross [facility] 07-07-2023 09:52-0500 Heart rate 103 /min Jeff Cross [facility] 07-07-2023 08:57-0500 Body temperature 97.88 [degF] Jeff Cross [facility] 07-07-2023 08:57-0500 Heart rate 134 /min Jeff Cross [facility] 07-07-2023 08:57-0500 Respiratory rate 24 /min Jeff Cross [facility] 07-06-2023 14:03-0500 Hourly Rounding Ronobir ABDI [facility] 07-06-2023 14:03-0500 Promise to Return Ronobir ABDI [facility] 07-06-2023 13:34-0500 Hourly Rounding Ronobir ABDI [facility] 07-06-2023 13:00-0500 Hourly Rounding Ronobir ABDI [facility] 07-06-2023 13:00-0500 Promise to Return Ronobir ABDI [facility] 07-06-2023 12:07-0500 Promise to Return Ronobir ABDI [facility] 07-06-2023 12:00-0500 Blood Pressure Location Ronobir ABDI [facility] 07-06-2023 12:00-0500 Body temperature 98.06 [degF] Ronobir ABDI [facility] 07-06-2023 12:00-0500 Diastolic blood pressure 69 mm[Hg] Ronobir ABDI [facility] 07-06-2023 12:00-0500 Heart rate 78 /min Ronobir ABDI [facility] 07-06-2023 12:00-0500 Mean blood pressure 81 mm[Hg] Ronobir ABDI [facility] 07-06-2023 12:00-0500 SaO2% (BldA) [Mass fraction] 94 % Ronobir ABDI [facility] 07-06-2023 12:00-0500 Systolic blood pressure 105 mm[Hg] Ronobir ABDI [facility] 07-06-2023 10:00-0500 Diastolic blood pressure 66 mm[Hg] Ronobir ABDI [facility] 07-06-2023 10:00-0500 Heart rate 77 /min Ronobir ABDI [facility] 07-06-2023 10:00-0500 Mean blood pressure 78 mm[Hg] Ronobir ABDI [facility] 07-06-2023 10:00-0500 Systolic blood pressure 103 mm[Hg] Ronobir ABDI [facility] 07-06-2023 07:00-0500 Body temperature 97.7 [degF] Ronobir ABDI [facility] 07-06-2023 07:00-0500 Diastolic blood pressure 60 mm[Hg] Ronobir ABDI [facility] 07-06-2023 07:00-0500 SaO2% (BldA) [Mass fraction] 93 % Ronobir ABDI [facility] 07-06-2023 07:00-0500 Systolic blood pressure 97 mm[Hg] Ronobir ABDI [facility] 07-06-2023 00:18-0500 Body temperature 97.7 [degF] Ronobir ABDI [facility] 07-06-2023 00:18-0500 SaO2% (BldA) [Mass fraction] 93 % Ronobir ABDI [facility] 07-05-2023 22:10-0500 Mean blood pressure 79 mm[Hg] Ronobir ABDI [facility] 07-05-2023 16:03-0500 Mean blood pressure 88 mm[Hg] Ronobir ABDI [facility] 07-05-2023 11:18-0500 Mean blood pressure 77 mm[Hg] Ronobir ABDI [facility] 07-05-2023 11:18-0500 Body temperature 98.06 [degF] Ronobir ABDI [facility] 07-05-2023 09:59-0500 Mean blood pressure 86 mm[Hg] Ronobir ABDI [facility] 07-05-2023 09:58-0500 Body temperature 98.42 [degF] Ronobir ABDI [facility] 07-04-2023 19:23-0500 Body temperature 97.7 [degF] Ronobir ABDI [facility] 07-03-2023 18:22-0500 BP/Pulse Patient Position Ronobir ABDI [facility] 07-03-2023 14:00-0500 Respiratory rate 17 /min Ronobir ABDI [facility] 07-03-2023 06:46-0500 Respiratory rate 18 /min Ronobir ABDI [facility] 07-03-2023 06:45-0500 BP/Pulse Patient Position Ronobir ABDI [facility] 07-03-2023 04:30-0500 Respiratory rate 16 /min Ronobir ABDI [facility] 07-03-2023 02:45-0500 Heart rate 90 /min Ronobir ABDI [facility] 07-03-2023 02:30-0500 Respiratory rate 12 /min Ronobir ABDI [facility] 07-03-2023 02:15-0500 Respiratory rate 13 /min Ronobir ABDI [facility] 07-02-2023 21:27-0500 Heart rate 141 /min Ronobir ABDI [facility] 07-02-2023 21:27-0500 Respiratory rate 18 /min Ronobir ABDI [facility] 07-01-2023 00:30-0500 Diastolic blood pressure 76 mm[Hg] Kaylinn Dokken [facility] 07-01-2023 00:30-0500 Heart rate 102 /min Kaylinn Dokken [facility] 07-01-2023 00:30-0500 Mean blood pressure 82 mm[Hg] Kaylinn Dokken [facility] 07-01-2023 00:30-0500 Respiratory rate 18 /min Kaylinn Dokken [facility] 07-01-2023 00:30-0500 SaO2% (BldA) [Mass fraction] 95 % Kaylinn Dokken [facility] 07-01-2023 00:30-0500 Systolic blood pressure 93 mm[Hg] Kaylinn Dokken [facility] 06-30-2023 23:24-0500 Diastolic blood pressure 73 mm[Hg] Kaylinn Dokken [facility] 06-30-2023 23:24-0500 Heart rate 102 /min Kaylinn Dokken [facility] 06-30-2023 23:24-0500 Mean blood pressure 92 mm[Hg] Kaylinn Dokken [facility] 06-30-2023 23:24-0500 Respiratory rate 16 /min Kaylinn Dokken [facility] 06-30-2023 23:24-0500 SaO2% (BldA) [Mass fraction] 94 % Kaylinn Dokken [facility] 06-30-2023 23:24-0500 Systolic blood pressure 130 mm[Hg] Kaylinn Dokken [facility] 06-30-2023 22:30-0500 Body temperature 97.88 [degF] Kaylinn Dokken [facility] 06-30-2023 22:30-0500 Diastolic blood pressure 112 mm[Hg] Kaylinn Dokken [facility] 06-30-2023 22:30-0500 Heart rate 114 /min Kaylinn Dokken [facility] 06-30-2023 22:30-0500 Mean blood pressure 120 mm[Hg] Caitlyninn Dokken [facility] 06-30-2023 22:30-0500 Respiratory rate 18 /min Caitlyninn Dokken [facility] 06-30-2023 22:30-0500 SaO2% (BldA) [Mass fraction] 100 % Caitlyninn Dokken [facility] 06-30-2023 22:30-0500 Systolic blood pressure 137 mm[Hg] Caitlyninn Dokken [facility] 06-30-2023 19:33-0500 Body temperature 97.7 [degF] Aran Dokken [facility] 06-30-2023 19:33-0500 Heart rate 123 /min Koby Ramirezkken [facility] 04-26-2023 15:19-0400 Blood Pressure Location Micheline BROOKS [facility] 04-26-2023 15:19-0400 Diastolic blood pressure 88 mm[Hg] Micheline BROOKS [facility] 04-26-2023 15:19-0400 Heart rate 80 /min Micheline BROOKS [facility] 04-26-2023 15:19-0400 Systolic blood pressure 139 mm[Hg] Micheline BROOKS [facility] 04-04-2023 16:30-0400 Diastolic blood pressure 51 mm[Hg] Jeff Cross [facility] 04-04-2023 16:30-0400 Heart rate 39 /min Jeff Wadee [facility] 04-04-2023 16:30-0400 Respiratory rate 14 /min Jeff Wadee [facility] 04-04-2023 16:30-0400 SaO2% (BldA) [Mass fraction] 99 % Jeff Tay [facility] 04-04-2023 16:30-0400 Systolic blood pressure 145 mm[Hg] Jeff Tay [facility] 04-04-2023 15:52-0400 Body temperature 98.06 [degF] Jeff Wadee [facility] 04-04-2023 15:52-0400 Diastolic blood pressure 81 mm[Hg] Jeff Wadee [facility] 04-04-2023 15:52-0400 Heart rate 66 /min Jeff Wadee [facility] 04-04-2023 15:52-0400 Respiratory rate 14 /min Jeff Wadee [facility] 04-04-2023 15:52-0400 SaO2% (BldA) [Mass fraction] 99 % Jeff Tay [facility] 04-04-2023 15:52-0400 Systolic blood pressure 161 mm[Hg] Jeff Tay [facility] 04-04-2023 14:52-0400 Diastolic blood pressure 79 mm[Hg] Jeff Tay [facility] 04-04-2023 14:52-0400 Heart rate 64 /min Jeff Tay [facility] 04-04-2023 14:52-0400 Respiratory rate 14 /min Jeff Wadee [facility] 04-04-2023 14:52-0400 SaO2% (BldA) [Mass fraction] 100 % Jeff Cross [facility] 04-04-2023 14:52-0400 Systolic blood pressure 95 mm[Hg] Jeff Cross [facility] 04-04-2023 14:07-0400 Body temperature 98.06 [degF] Jeff Cross [facility] 04-04-2023 13:52-0400 Body temperature 98.24 [degF] Jeff Cross [facility] 04-04-2023 13:52-0400 Heart rate 107 /min Jeff Cross [facility] 01-28-2023 21:23-0400 Body temperature 97.7 [degF] [facility] 01-28-2023 21:23-0400 Diastolic blood pressure 78 mm[Hg] [facility] 01-28-2023 21:23-0400 Heart rate 82 /min [facility] 01-28-2023 21:23-0400 Respiratory rate 18 /min [facility] 01-28-2023 21:23-0400 SaO2% (BldA) [Mass fraction] 97 % [facility] 01-28-2023 21:23-0400 Systolic blood pressure 125 mm[Hg] [facility] 09-01-2022 14:01-0500 Diastolic blood pressure 75 mm[Hg] Yennifer Iraheta [facility] 09-01-2022 14:01-0500 Mean blood pressure 91 mm[Hg] Yennifer Iraheta [facility] 09-01-2022 14:01-0500 Systolic blood pressure 122 mm[Hg] Yennifer Iraheta [facility] 09-01-2022 13:48-0500 Blood Pressure Location Yennifer Esequiel [facility] 09-01-2022 13:48-0500 Diastolic blood pressure 79 mm[Hg] Mohamed Esequiel [facility] 09-01-2022 13:48-0500 Heart rate 60 /min Mohamed Esequiel [facility] 09-01-2022 13:48-0500 SaO2% (BldA) [Mass fraction] 98 % Julianamed Esequiel [facility] 09-01-2022 13:48-0500 Systolic blood pressure 149 mm[Hg] Mohamed Esequiel [facility] 06-13-2022 08:54-0400 Blood Pressure Location Mohamed Esequiel [facility] 06-13-2022 08:54-0400 Diastolic blood pressure 68 mm[Hg] Yennifer Esequiel [facility] 06-13-2022 08:54-0400 Heart rate 75 /min Yennifer Esequiel [facility] 06-13-2022 08:54-0400 SaO2% (BldA) [Mass fraction] 96 % Mohstacia Esequiel [facility] 06-13-2022 08:54-0400 Systolic blood pressure 132 mm[Hg] Yennifer Esequiel [facility] 03-03-2022 09:59-0400 Blood Pressure Location CARMINA GARRISON [facility] 03-03-2022 09:59-0400 Diastolic blood pressure 89 mm[Hg] CARMINA GARRISON [facility] 03-03-2022 09:59-0400 Heart rate 77 /min CARMINA GARRISON [facility] 03-03-2022 09:59-0400 Systolic blood pressure 140 mm[Hg] CARMINA GARRISON [facility] 02-15-2022 13:17-0400 Body temperature 98.6 [degF] Jeff Cross [facility] 02-15-2022 13:17-0400 Diastolic blood pressure 62 mm[Hg] Jeff Cross [facility] 02-15-2022 13:17-0400 Heart rate 86 /min Jeff Cross [facility] 02-15-2022 13:17-0400 Respiratory rate 18 /min Jeff Wadee [facility] 02-15-2022 13:17-0400 SaO2% (BldA) [Mass fraction] 99 % Jeff Cross [facility] 02-15-2022 13:17-0400 Systolic blood pressure 151 mm[Hg] Jeff Wadee [facility] 12-24-2021 17:39-0400 Body temperature 97.7 [degF] Jeff Tay [facility] 12-24-2021 17:39-0400 Diastolic blood pressure 70 mm[Hg] Jeff Tay [facility] 12-24-2021 17:39-0400 Heart rate 81 /min Jeff Wadee [facility] 05-13-2022 17:39-0400 Respiratory rate 15 /min Jeff Cross [facility] 12-24-2021 17:39-0400 SaO2% (BldA) [Mass fraction] 100 % Jeff Cross [facility] 12-24-2021 17:39-0400 Systolic blood pressure 163 mm[Hg] Jeff Cross [facility] Encounters Encounter Date Encounter Type Care Provider Facility Start: 10-16-2023 Telephone encounter Alea lynn MD Work Phone: Cardiology Comment on above: Patient Update Start: 10-16-2023 End: 10-16-2023 ambulatory [facility] Start: 10-16-2023 End: 10-16-2023 Patient encounter procedure Raphael Goldsmith MD Work Phone: Urology Comment on above: Feeling of incomplet e bladder emptying (Primary Dx); Stricture of female urethra, unspecified stricture type; Severe protein-calorie malnutrition (HCC) Start: 10-10-2023 ambulatory [facility] Start: 10-05-2023 End: 10-05-2023 Emergency department patient visit Koby Masterson Facility:[facility] Start: 10-05-2023 End: 10-05-2023 Emergency department patient visit Koby Masterson [facility] Start: 10-02-2023 Telephone encounter Alea lynn MD Work Phone: Cardiology Comment on above: Results Start: 09-26-2023 End: 09-27-2023 ambulatory Raphael Goldsmith MD Work Phone: Urology Start: 09-26-2023 Clinisync Result Encounter Gen betty External Data Provider [facility] External Department Unsolicited Start: 09-26-2023 Clinisync Result Encounter Gen betty External Data Provider [facility] External Department Unsolicited Start: 09-26-2023 End: 09-26-2023 Patient encounter procedure Ana Rivas APRN.[employer] Work Phone: Cardiology Comment on above: Non-rheumatic mitral regurgitation (Primary Dx); Chronic HFrEF (heart failure with reduced ejection fraction) (HCC); Nonrheumatic tricuspid valve regurgitation; Non-ischemic cardiomyopathy (HCC); Persistent atrial fibrillation (HCC); 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; History of cardioversion; Primary hypertension Feeling of incomplet e bladder emptying (Primary Dx); Stricture of female urethra, unspecified stricture type; Severe protein-calorie malnutrition (HCC) Start: 09-21-2023 End: 09-22-2023 ambulatory [facility] Start: 09-21-2023 Telephone encounter Alea [...] (I70.0) Start: 09-17-2023 Telephone encounter Carmina larios APRN.[employer] Work Phone: Cardiothoracic Comment on above: Medication Problem Start: 09-17-2023 End: 09-17-2023 Emergency department patient visit Parveen Ayers Facility:[facility] Start: 09-17-2023 End: 09-17-2023 Emergency department patient visit Parveen Ayers [facility] Start: 09-13-2023 Refill Peggy Nazario MD Work Phone: [facility] Comment on above: Anxiety Start: 09-12-2023 End: 09-12-2023 ambulatory CRUZ COVINGTON Not Available Start: 09-12-2023 Refill Peggy Nazario MD Work Phone: [facility] Comment on above: Gastroesophageal ref lux disease without esophagitis Start: 09-12-2023 End: 09-12-2023 Emergency department patient visit Parveen Michael Ayers Facility:[facility] Start: 09-12-2023 End: 09-12-2023 Emergency department patient visit Parveen MarquisElise Ayers [facility] Start: 09-06-2023 End: 09-06-2023 ambulatory PEGGY NAZARIO Not Available Start: 08-28-2023 End: 08-29-2023 ambulatory PEGGY NAZARIO Facility:[facility] Start: 08-24-2023 Evaluation and manag ement of inpatient PEGGY NAZARIO Facility:[facility] Start: 08-23-2023 End: 08-24-2023 ambulatory PEGGY NAZARIO Facility:[facility] Start: 08-11-2023 End: 08-11-2023 ambulatory PEGGY NAZARIO Not Available Start: 07-24-2023 End: 07-24-2023 ambulatory STEPHAN BOO Not Available Start: 07-24-2023 Telephone encounter Micheline goldberg MD Work Phone: Cardiothoracic Comment on above: Insurance Inquiry Start: 07-21-2023 End: 07-21-2023 ambulatory Taylor HENRIQUEZ Facility:[facility] Start: 07-21-2023 End: 07-21-2023 Admission to same day surgery center Taylor HENRIQUEZ [facility] Start: 07-20-2023 End: 07-20-2023 ambulatory PEGGY NAZARIO Not Available Start: 07-20-2023 End: 07-21-2023 ambulatory XXXX NONE Facility:[facility] Start: 07-20-2023 End: 07-20-2023 Patient encounter procedure Taylor HENRIQUEZ [facility] Start: 07-19-2023 End: 07-20-2023 ambulatory Micheline Cathy BROOKS Facility:[facility] Start: 07-10-2023 End: 07-10-2023 ambulatory PEGGY NAZARIO Not Available Start: 07-07-2023 End: 07-07-2023 Emergency department patient visit Jeff Cross Facility:[facility] Start: 07-07-2023 End: 07-07-2023 Emergency department patient visit Jeff Cross [facility] Start: 07-04-2023 End: 07-06-2023 Pre-admission assessment Taylor HENRIQUEZ [facility] Start: 07-02-2023 End: 07-06-2023 ambulatory Nahid SERRATO Facility:[facility] Start: 07-02-2023 End: 07-06-2023 Observation Noman PATTON [facility] Start: 06-30-2023 End: 07-01-2023 Emergency department patient visit Koby Masterson Facility:[facility] Start: 06-30-2023 End: 07-01-2023 Emergency department patient visit Koby Masterson [facility] Start: 05-23-2023 End: 05-24-2023 ambulatory Micheline Cathy BROOKS Facility:[facility] Start: 04-26-2023 End: 04-27-2023 ambulatory Micheline Cathy BROOKS Facility:[facility] Start: 04-26-2023 End: 04-26-2023 Patient encounter procedure Micheline BROOKS [facility] Start: 04-04-2023 End: 04-04-2023 Emergency department patient visit Jeff Cross Facility:[facility] Start: 04-04-2023 End: 04-04-2023 Emergency department patient visit Jeff Cross [facility] Start: 01-28-2023 End: 01-29-2023 Emergency department patient visit Layton Crawford Facility:[facility] Start: 01-28-2023 End: 01-28-2023 Emergency department patient visit Layton Crawford [facility] Start: 12-05-2022 End: 12-06-2022 ambulatory Peggy Deyanira Bermudezby Facility:[facility] Start: 12-05-2022 End: 12-05-2022 Patient encounter procedure Peggy Nazario [facility] Start: 10-25-2022 End: 10-26-2022 ambulatory Micheline BROOKS Facility:[facility] Start: 10-25-2022 End: 10-25-2022 Patient encounter procedure Micheline BROOKS [facility] Start: 10-03-2022 End: 10-03-2022 Patient encounter procedure Asuncion Reyna [facility] Start: 09-01-2022 End: 09-01-2022 Patient encounter procedure Yennifer Iraheta [facility] Start: 07-12-2022 End: 07-12-2022 Patient encounter procedure Yennifer Iraheta [facility] Start: 06-13-2022 End: 06-13-2022 Patient encounter procedure Yennifer Iraheta [facility] Start: 03-03-2022 End: 03-03-2022 Patient encounter procedure CARMINA GARRISON [facility] Start: 02-15-2022 End: 02-15-2022 Emergency department patient visit Jeff Cross [facility] Start: 12-24-2021 End: 12-24-2021 Emergency department patient visit Jeff Cross [facility] Start: 08-11-2021 End: 11-10-2021 Patient encounter procedure Peggy Nazario [facility] Procedures Date Procedure Procedure Detail Performing Clinician Start: 10-16-2023 Urnls dip stick/tabl et rgnt auto w/o microscopy Raphael Goldsmith MD Work Phone: Start: 09-26-2023 Urnls dip stick/tabl et reagent auto microscopy Bulk Order Provider Start: 09-26-2023 [facility] CBC PNL BLD AUTO Ge neric External Data Provider Start: 07-21-2023 Transesophageal echocardiography Taylor MARTINEZ Start: 07-05-2023 Catheterization of b oth left [...] Cystoscopy Peggy Nazario Dilation of urethra Peggy Jayme devorah Comment on above: Dr. Contreras Hysterectomy Peggy Nazario Tonsillectomy Peggy Nazario Plan of Treatment Date Care Activity Detail Author Start: 02-16-2028 Screening for malign ant neoplasm of colon [facility] Start: 01-30-2028 Urine microalbumin profile DTa P,Tdap,Td Vaccine (5 - Td or Tdap) [facility] Start: 09-26-2026 Diabetes Screening Diabetes Screenin [facility] Start: 08-31-2026 Diabetes Screening Diabetes Screenin [facility] Start: 09-26-2024 BP Controlled (<130/80) BP Controlle d (<130/80) [facility] Start: 08-28-2024 BP Controlled (<130/80) BP Controlle d (<130/80) [facility] Start: 07-29-2024 End: 07-29-2024 Patient encounter procedure 07/29/2024 3:45 PM EST Office Visit [facility] [address] [place] [phone] Stephan Boo, DO [address] [place] [address] [facility] Start: 07-24-2024 Medicare Annual Well ness (AWV) Medicare Annual Wellness (AWV) [facility] Start: 01-24-2024 ambulatory Facility:[facility] Start: 11-10-2023 End: 11-10-2023 Patient encounter procedure 11/10/2023 1:00 PM EDT Office Visit [facility] [address] [place] [phone] Peggy Nazario MD [address] [place] [address] [facility] Start: 11-08-2023 End: 02-07-2024 Basic metabolic 2000 panel - Serum or Plasma BASIC METABOLIC PNL Lab Routine Non-rheumatic mitral regurgitation Persistent atrial fibrillation (HCC) Non-ischemic cardiomyopathy (HCC) Chronic HFrEF (heart failure with reduced ejection fraction) (HCC) Expected: 11/08/2023 (Approximate), Expires: 02/07/[address] [facility] Work Phone: Comment on above: Expected: 11/08/2023 (Approximate), Expires: 02/07/2024 Start: 11-08-2023 End: 09-26-2024 ECG COMPLETE ECG COMPLETE ECG Routine Non-rheumatic mitral regurgitation Persistent atrial fibrillation (HCC) Non-ischemic cardiomyopathy (HCC) Chronic HFrEF (heart failure with reduced ejection fraction) (HCC) Expected: 11/08/2023 (Approximate), Expires: 09/26/[address] [facility] Work Phone: Comment on above: Expected: 11/08/2023 (Approximate), Expires: 09/26/2024 Start: 10-25-2023 End: 01-24-2024 Basic metabolic 2000 panel - Serum or Plasma BASIC METABOLIC PNL Lab Routine Non-rheumatic mitral regurgitation Persistent atrial fibrillation (HCC) Non-ischemic cardiomyopathy (HCC) Chronic HFrEF (heart failure with reduced ejection fraction) (HCC) Expected: 10/25/2023, Expires: 01/24/[address] [facility] Work Phone: Comment on above: Expected: 10/25/2023 , Expires: 01/24/2024 Start: 10-25-2023 End: 09-26-2024 ECG COMPLETE ECG COMPLETE ECG Routine Non-rheumatic mitral regurgitation Persistent atrial fibrillation (HCC) Non-ischemic cardiomyopathy (HCC) Chronic HFrEF (heart failure with reduced ejection fraction) (HCC) Expected: 10/25/2023, Expires: 09/26/[address] [facility] Work Phone: Comment on above: Expected: 10/25/2023 , Expires: 09/26/2024 Start: 10-10-2023 End: 01-09-2024 Basic metabolic 2000 panel - Serum or Plasma BASIC METABOLIC PNL Lab Routine Non-rheumatic mitral regurgitation Persistent atrial fibrillation (HCC) Non-ischemic cardiomyopathy (HCC) Chronic HFrEF (heart failure with reduced ejection fraction) (HCC) Expected: 10/10/2023 (Approximate), Expires: 01/09/[address] [facility] Work Phone: Comment on above: Expected: 10/10/2023 (Approximate), Expires: 01/09/2024 Start: 10-10-2023 End: 09-26-2024 ECG COMPLETE ECG COMPLETE ECG Routine Non-rheumatic mitral regurgitation Persistent atrial fibrillation (HCC) Non-ischemic cardiomyopathy (HCC) Chronic HFrEF (heart failure with reduced ejection fraction) (HCC) Expected: 10/10/2023 (Approximate), Expires: 09/26/[address] [facility] Work Phone: Comment on above: Expected: 10/10/2023 (Approximate), Expires: 09/26/2024 Start: 10-06-2023 End: 10-06-2023 Patient encounter procedure 10/06/2023 1:00 PM EST Office Visit [facility] [address] [place] [phone] Peggy Nazario MD [address] [place] [address] [facility] Start: 09-26-2023 End: 12-26-2023 Basic metabolic 2000 panel - Serum or Plasma BASIC METABOLIC PNL Lab Routine Non-rheumatic mitral regurgitation Persistent atrial fibrillation (HCC) Non-ischemic cardiomyopathy (HCC) Chronic HFrEF (heart failure with reduced ejection fraction) (HCC) Expected: 09/26/2023, Expires: 12/26/[address] [facility] Work Phone: Comment on above: Expected: 09/26/2023 , Expires: 12/26/2023 Start: 08-14-2023 Advance Directive Discussion Advance Directive Discussion [facility] Start: 08-14-2023 Depression Assessment Depression Ass essment [facility] Start: 04-14-2023 Influenza vaccination Influenza Vacc ine (#1) [facility] Start: 08-14-2022 Advance Directive Discussion Advance Directive Discussion [facility] Start: 08-14-2022 Depression Assessment Depression Ass essment [facility] Start: 02-15-2019 Colonoscopy Colonoscopy [facility] Start: 02-15-2019 Colorectal Cancer Screening Colorectal Cancer Screening [facility] Start: 02-15-2019 Screening for malign ant neoplasm of colon [facility] Start: 2013 Bone Density Screening Bone Density Screening [facility] Start: 2013 Pneumococcal Vaccine : 65+ (1 - PCV) Pneumococcal Vaccine: 65+ (1 - PCV) [facility] Start: 2013 Pneumococcal Vaccine : 65+ (1 of 1 - PCV) Pneumococcal Vaccine: 65+ (1 of 1 - PCV) [facility] Start: 2013 Screening for osteoporosis Bone Dens ity Screening [facility] Start: 2008 RSV Vaccine (1 - 1-d ose 60+ series) RSV Vaccine (1 - 1-dose 60+ series) [facility] Start: 1998 Shingrix Vaccine (1 of 2) Abdi grix Vaccine (1 of 2) [facility] Start: 1993 Cologuard (FIT-DNA) Cologuard (FIT-D NA) [facility] Start: [address] Colonography [facility] Start: 1993 Diabetes Screening Diabetes Screenin g [facility] Start: 1993 Fecal Occult Blood Fecal Occult Bloo d [facility] Start: 1993 Lipid 1996 panel - S theresa or Plasma Lipid Screening [facility] Start: 1993 Lipid panel Lipid Screening [facility] Start: 1993 Screening for malign ant neoplasm of colon [facility] Start: 1993 [facility] Start: 1966 Annual PCP Team Eyeglass Frames Inspector luis Disease Visit Annual PCP Team Chronic Disease Visit [facility] Start: 1966 Hepatitis C Screening Hepatitis C [facility] Start: 1966 Hepatitis C screening Hepatitis C [facility] Start: 1954 Pneumococcal Vaccine : 65+ Years (1 - PCV) Pneumococcal Vaccine: 65+ Years (1 - PCV) [facility] Start: 1948 Covid-19 Vaccine (#1) Covid-19 Vacci ne (#1) [facility] Start: 1948 Screening for malign ant neoplasm of colon [facility] Cystourethroscopy CYSTO.PANENDO Procedures Routine Feeling of incomplete bladder emptying Stricture of female urethra, unspecified stricture type Ordered: 09/26/[address] [facility] Work Phone: Comment on above: Ordered: 09/26/2023 [facility] Immunizations Immunization Date Immunization Notes Care Provider Fa courtney 01-29-2018 tetanus toxoid, reduced diphtheria toxoid, and acellular pertussis vaccine, adsorbed Peggy Nazario MD Work Phone: [facility] 02-16-2016 tetanus and diphtheria toxoids, adsorbed, preservative free, for adult use (5 Lf of tetanus toxoid and 2 Lf of diphtheria toxoid) Peggy Nazario MD Work Phone: [facility] 12-14-2009 diphtheria, tetanus toxoids and pertussis vaccine Peggy Nazario MD Work Phone: [facility] 12-30-2004 diphtheria and tetanus toxoids, adsorbed for pediatric use Peggy Nazario MD Work Phone: [facility] NEGATED: Highlighted row has not occurred!07-20-2023 influenza virus vaccine, unspecified formulation Taylor HENRIQUEZ [facility] Payers Date Payer Category Payer Unknown [id number] 2016 Unknown [id number] 2013 Medicare [id number] 2013 Medicare [id number] 1948 Unknown [id number] 2.16.84 0.1.852178.3.579.2.9 1948 Unknown [id number] 2.16.84 0.1.071177.3.579.2.9 1948 Unknown [id number] 2.16.84 0.1.351776.3.579.2.1259 1948 Unknown [id number] 2.16.840 .1.687312.3.579.2.1259 1948 Unknown [id number] 2.16.840 .1.599954.3.579.2.1259 1948 Unknown [id number] 2.16.840 .1.416926.3.579.2.125 1948 Unknown [id number] 2.16.840 .1.150034.3.579.2.1259 1948 Unknown [id number] 2.16.8 40.1.112364.3.579.2. 1948 Unknown [id number] 2.16.8 40.1.498163.3.579.2. 1948 Unknown [id number] 2.16.8 40.1.788107.3.579.2. 1948 Unknown [id number] 2.16.8 40.1.179391.3.579.2.72 1948 Unknown [id number] 2.16.8 40.1.526980.3.579.2. 1948 Unknown [id number] 2.16.8 40.1.048581.3.579.2.727 1948 Unknown [id number] 2.16.8 40.1.364063.3.579.2.727 1948 Unknown [id number] 2.16.8 40.1.330265.3.579.2.727 1948 Unknown [id number] 2.16.8 40.1.122485.3.579.2.72 1948 Unknown [id number] 2.16.8 40.1.892140.3.579.2.727 1948 Unknown [id number] 2.16.8 40.1.686328.3.579.2.728 Unknown [id number] 2.16.8 40.1.149794.3.579.2.727 1948 Unknown [id number] 2.16.8 40.1.422434.3.579.2.727 1948 Unknown [id number] 2.16.8 40.1.696763.3.579.2.727 1948 Unknown [id number] 2.16.8 40.1.088399.3.579.2.727 1948 Unknown [id number] 2.16.8 40.1.334626.3.579.2.727 Social History Date Type Detail Facility Start: 02-23-2021 End: 08-23-2023 Tobacco smoking status Ex-smoker (finding) [facility] Comment on above: Denies Start: 07-08-2020 End: 07-20-2020 Sex Assigned At Female [facility] Tobacco smoking status Never [facility] Comment on above: Denies History of tobacco use Current smoker [facility] Start: 10-24-2017 End: 08-23-2023 Tobacco use and exposure Smokeless tobacco non-user [facility] Start: 10-24-2017 Alcohol intake Current drinke r of alcohol (finding) [facility] Start: 07-08-2020 End: 07-20-2020 History of Social function [facility] Start: 09-26-2012 End: 08-23-2023 Tobacco Comment Quit 1996. social smoker mostly [facility] Start: 1948 Sex Assigned At Not [...] Assessment Result Facility 10-05-2023 Functional Status N/A [facility] 09-17-2023 Functional Status N/A [facility] 09-12-2023 Functional Status N/A [facility] 07-21-2023 Functional Status No [facility] 07-20-2023 Functional Status No [facility] 07-07-2023 Functional Status N/A [facility] 07-03-2023 Functional Status N/A [facility] 07-02-2023 Functional Status [facility] 06-30-2023 Functional Status N/A [facility] 04-26-2023 Functional Status N/A [facility] 04-04-2023 Functional Status N/A [facility] 01-28-2023 Functional Status N/A [facility] 10-19-2022 Functional Status N/A [facility] 10-03-2022 Functional Status N/A [facility] 09-01-2022 Functional Status No [facility] 06-13-2022 Functional Status No [facility] 03-03-2022 Functional Status N/A [facility] 02-15-2022 Functional Status N/A [facility] Clinical Notes 12-24-2021 to 10-16-2023 Telephone Encounter - Junito Mendes - 10/16/2023 3:[address] - 10/16/2023 8:31 AM Raphael Lepe MD - 10/16/2023 8:25 AM EST Note Date & Type Note Facility 10-16-2023 Note [facility] Subjective Harjit Asencio is a 73 y.o. year old female patient being seen per CT surgery for mitraclip. She was seen at [facility] ED yesterday for SOB. She had an echo on Monday per CT surgery. She will have PFT's and carotid duplex on Monday. C/o pain surronding left breast and left armpit area. She's getting very SOB with minimal exertion. Patient Active Problem List Diagnosis Acid reflux Acute gastroenteritis Adjustment disorder with mixed anxiety and depressed mood Anxiety Atherosclerosis of aorta (CMS/HCC) Atrial fibrillation, persistent (CMS/HCC) Atrophic vaginitis Cardiomyopathy, nonischemic (CMS/HCC) Chronic fatigue syndrome Cystocele with prolapse Dysuria Feeling of incomplete bladder emptying Former smoker History of urethral stricture Incomplete bladder emptying Injury of nose Intestinal obstruction (CMS/HCC) Nocturia Non-rheumatic mitral regurgitation Nonrheumatic tricuspid valve regurgitation Panic attack Poor urinary stream Primary hypertension Renal lesion Seasonal allergies Severe protein-calorie malnutrition (CMS/HCC) Status post hysterectomy Stranguria Stricture and atresia of vagina Superficial laceration of face Suprapubic pain Transient insomnia Urethral stricture Urinary frequency Urinary urgency Family History Problem Relation Name Age of Onset Coronary artery disease Mother Diabetes Mother Coronary artery disease Father Social History Tobacco Use Smoking status: Former Types: Cigarettes Smokeless tobacco: Never Substance Use Topics Alcohol use: Never Drug use: Never HPI Harjit is seen as a new patient for evaluation of mitral regurgitation and systolic heart failure. She is a 73-year-old woman with prior medical history significant for heart failure with reduced ejection fraction with an ejection fraction around 40%, atrial fibrillation maintained on anticoagulation therapy digoxin and carvedilol. It seems her issues started around June 2023 when she was discovered to have atrial fibrillation with rapid ventricular response while undergoing management of few urinary bladder outlet obstruction. In the past she underwent HAROON guided cardioversion in August 2023. She has been found to have moderate to severe mitral regurgitation. Additional medical history includes hypertension and hypothyroidism. At her recent visit with cardiology at [facility] on 09/26/2023 valsartan was stopped and low-dose lisinopril 5 mg once daily was added. The plan was to add Jardiance. There is note of her to being evaluated by CT surgery Dr. Sorto regarding candidacy for cardiac surgery and she was deemed high risk. She was also evaluated at [facility] cardiothoracic surgery. Initial workup for her mitral valve disease was started. Spironolactone was changed to half tablet twice a day instead of 1 tablet once a day. She was also recommended to start taking digoxin at night instead of the morning. Today she reports that she has significant shortness of breath on exertion, NYHA class III symptoms. She is very anxious and worried about her condition. She complains of pain in chest that seems to be of musculoskeletal origin. She has no significant lower extremity edema. She does not feel dizziness or lightheadedness. She feels occasional palpitations. Review of Systems Cardiovascular: Positive for chest pain, dyspnea on exertion and palpitations. Negative for irregular heartbeat, leg swelling, orthopnea and syncope. Respiratory: Negative for cough and shortness of breath. Musculoskeletal: Negative for arthritis, falls and neck pain. Gastrointestinal: Negative for diarrhea and dysphagia. Neurological: Negative for light-headedness and loss of balance. Objective Visit Vitals BP 100/70 (BP Location: Right arm, Patient Position: Standing) Pulse 71 Ht 1.651 m (5' 5 ) Wt 48.5 kg (107 lb) SpO2 96% BMI 17.81 kg/m??? Smoking Status Former BSA 1.49 m??? Physical Exam Constitutional: Appearance: She is well-developed. She is not ill-appearing. HENT: Head: Normocephalic and atraumatic. Nose: Nose normal. Eyes: General: No scleral icterus. Pupils: Pupils are equal, round, and reactive to light. Neck: Thyroid: No thyromegaly. Vascular: No JVD. Cardiovascular: Rate and Rhythm: Tachycardia present. Rhythm irregularly irregular. Pulses: Radial pulses are 2+ on the right side and 2+ on the left side. Heart sounds: Murmur heard. Systolic (apex) murmur is present with a grade of 2/6. No friction rub. No gallop. Pulmonary: Effort: Pulmonary effort is normal. No respiratory distress. Breath sounds: Normal breath sounds. No wheezing or rales. Chest: Chest wall: No tenderness. Abdominal: General: Bowel sounds are normal. There is no distension. Palpations: Abdomen is soft. Tenderness: There is no abdominal tenderness. (more content not included)... [facility] 10-16-2023 Note This report has been cancelled. [facility] 10-16-2023 Miscellaneous Notes October 16, 2023 Patient Contact Number: [phone] Patient last seen within the last year: Yes Date of last office visit: 09/26/2023 Reason For Call: Scheduling calling on behalf of pt; pt canceled all future appts, states she no longer wants to be seen here because she does not like the valsartan he placed her on; had ED visit yesterday Physician: Alea Harley MD Patient was informed that non-urgent calls may be returned within the next three business days. Yes Junito Mendes documented in this encounter [facility] 10-16-2023 Note HNO ID: [id number] Author: LIA RAMIREZ CT Service: ? Author Type: Clinical Braille Teacher Type: Progress Notes Filed: 10/16/2023 11:20 Note Text: UNIVERSAL PROTOCOL / SAFETY CHECKLIST Procedure to be Performed: cysto Sign In: A Moment of CARE was completed. Personnel directly involved with the procedure wore the appropriate PPE (Personal Protective Equipment). Patient/Surrogate Stated/Verified: PATIENT VERIFIED(optional for EMERGENT procedures): Patient name, Date of , Relevant allergies, and The intended procedure Time Out Communication: Intended patient and procedure match the source documents. Consent documented and matches the intended procedure. Sign Out: SIGN OUT (optional for EMERGENT procedures): No specimen collected. DAWSON Farr [facility] 10-16-2023 Note HNO ID: [id number] Author: RAPHAEL GOLDSMITH MD Service: ? Author Type: Physician Type: Progress Notes Filed: 10/16/2023 11:20 Note Text: 73 year old with prior history of urinary symptoms. Incomplete emptying, intermittency, straining. Had urethral dilation elsewhere which helped. Wished to have another performed due to it helping the symptoms M.D.'S HOPS NOTE / UNIVERSAL PROTOCOL / SAFETY CHECKLIST Sign In History and Physical Exam reviewed and is unchanged. Primary Diagnosis: Bladder Outlet Obstruction Sign in Communication: Completed Time Out: Immediately prior to procedure, Team Confirms the Correct Patient, Correct Procedure; Cystoscopy and urethral dilation, Correct Site and Site Marking, Correct Position (if applicable). Sign Out: Sign Out Discussion: Completed Antibiotic(s) given immediately prior to procedure: macrobid Details of Procedure: The patient was positioned in the lithotomy position and prepped in standard sterile fashion. A flexible cystoscope was introduced after lidocaine gel was given. The scope passed through the urethra atraumatically. There was mild scarring of the meatus but no resistance to passage. The bladder was surveyed and normal in appearance. No masses or lesions. Clear efflux from both orifices which were orthotopic. Retroflexion revealed no abnormality. The urethra was then visualized with no ostia or lesions. We then sequentially dilated the urethra with the female sounds from 16 Fr to 26 Fr without issue. The procedure was then terminated. 73 year old with urinary hesitancy, intermittent stream, incomplete emptying -follow-up in 6 months to reassess symptoms Juventino Javier MD FPMRS Fellow Attending Note I evaluated the patient and personally participated in the mansfield components. I agree with the resident's findings and plan as documented and have discussed the case and management of the patient's care with the resident. @POCVISITLIST@ Signature: Raphael Goldsmith MD Date: October 16, 2023 Time: 11:[address] [facility] 10-16-2023 History of Presen t illness Narrative UNIVERSAL PROTOCOL / SAFETY CHECKLIST Procedure to be Performed: cysto Sign In: A Moment of CARE was completed. Personnel directly involved with the procedure wore the appropriate PPE (Personal Protective Equipment). Patient/Surrogate Stated/Verified: PATIENT VERIFIED(optional for EMERGENT procedures): Patient name, Date of , Relevant allergies, and The intended procedure Time Out Communication: Intended patient and procedure match the source documents. Consent documented and matches the intended procedure. Sign Out: SIGN OUT (optional for EMERGENT procedures): No specimen collected. DAWSON Farr 73 year old with prior history of urinary symptoms. Incomplete emptying, intermittency, straining. Had urethral dilation elsewhere which helped. Wished to have another performed due to it helping the symptoms Pedro'Benitez PERALTA NOTE / UNIVERSAL PROTOCOL / SAFETY CHECKLIST Sign In History and Physical Exam reviewed and is unchanged. Primary Diagnosis: Bladder Outlet Obstruction Sign in Communication: Completed Time Out: Immediately prior to procedure, Team Confirms the Correct Patient, Correct Procedure; Cystoscopy and urethral dilation, Correct Site and Site Marking, Correct Position (if applicable). Sign Out: Sign Out Discussion: Completed Antibiotic(s) given immediately prior to procedure: macrobid Details of Procedure: The patient was positioned in the lithotomy position and prepped in standard sterile fashion. A flexible cystoscope was introduced after lidocaine gel was given. The scope passed through the urethra atraumatically. There was mild scarring of the meatus but no resistance to passage. The bladder was surveyed and normal in appearance. No masses or lesions. Clear efflux from both orifices which were orthotopic. Retroflexion revealed no abnormality. The urethra was then visualized with no ostia or lesions. We then sequentially dilated the urethra with the female sounds from 16 Fr to 26 Fr without issue. The procedure was then terminated. 73 year old with urinary hesitancy, intermittent stream, incomplete emptying -follow-up in 6 months to reassess symptoms Juventino Javeir MD FPMRS Fellow Attending Note I evaluated the patient and personally participated in the mansfield components. I agree with the resident's findings and plan as documented and have discussed the case and management of the patient's care with the resident. @POCVISITLIST@ Signature: Raphael Goldsmith MD Date: October 16, 2023 Time: 11:18 AM documented in this encounter [facility] 10-16-2023 Nurse Note Actual procedure/procedure scheduled: Yes Performing provider/scheduled provider: Yes Patient was roomed in: [facility] First Line Supervisor offered:Patient declines Patient arrived in the room at: 0738 Patient ready for procedure: 0755 The procedure started at ( Time Only): 0819 The procedure ended at: 0826 Was the procedure delayed: Yes: Provider late: Provider off unit The patient left the procedure room at: 0832 DAWSON Farr PRE PROCEDURE ASSESSMENT- Cysto Procedure Indication: Cystoscopy Latex Allergy: No Allergies reviewed and updated. Yes Pre-Procedure Vital Signs: BP: 123/58 Pulse: 81 Heart valve replacement: No Joint replacement: No Back Office UA otained: yes PROCEDURE PREP-Cysto Patient ID with two(2)identifiers verified by: DAWSON Farr Pre-Procedure Antibiotics: None taken at home nor prior to procedure Patient Prep: Betadine Scrub to perineum and placement of Sterile Drape. COMPLETED Anesthetic Given:Administered by MD - see Procedure Physician Note. DAWSON Farr UNIVERSAL PROTOCOL / SAFETY CHECKLIST Procedure to be performed: Cystoscopy Sign in Communication: Completed Time Out: Team Confirms the Correct Patient, Correct Procedure, Correct Site and Site Marking, Correct Position (if applicable). Dr. Goldsmith did dilate pt urethra with female sounds Sign Out Discussion: Completed DAWSON Farr POST PROCEDURE NURSE ASSESSMENT Present along with physician during procedure exam. DAWSON Farr Instruction sheet given and reviewed and patient verbalizes understanding: yes Post Procedure Antibiotic: As Prescribed Current pain intensity is 0 on a 0-10 pain scale. DAWSON Farr AMBULATORY PATIENT EDUCATION THE FOLLOWING WAS EVALUATED Motivation To Learn: Interested Family/Significant Other Support: Unable to assess - Family not present Cognitive Ability: Alert/Oriented Method of Instruction: Individual instruction Written instruction - handouts The Following Influencing Factors Were Barriers To This Education Session: None The Following Physical Limitations Were Barriers To This Education Session: None Instruction Provided To: Patient Cabin Agent Present: no Discipline: Nursing Learning Topic: SURVIVAL SKILLS: Symptom Management Patient Evaluation: Verbalizes understanding: Yes Supplemental Material Given: Written Material Instructed By DAWSON Farr In Department Urology . documented in this encounter [facility] 10-05-2023 Hospital Discharg e instructions Patient Education 10/05/2023 21:56:35 Constipation, Adult, Cfrx-wz-Kjui Constipation, Adult Constipation is when a person [...] high in fat and sugar, such as: ?Montserratian fries. ?Hamburgers. ?Cookies. ?Candy. ?Soda. Drink enough fluid to keep your pee (urine) pale yellow. General instructions Exercise regularly or as told by your doctor. Try to do 150 minutes of exercise each week. Go to the restroom when you feel like you need to poop. Do not hold it in. Take fjyc-brz-inowqsd and prescription medicines only as told by [...] keep your pee (urine) pale yellow. Take loih-efo-sqnrijk and prescription medicines only as told by your doctor. These include any fiber supplements. This information is not intended to replace advice given to you by your health care provider. Make sure you discuss any questions you have with your health care provider. Document Revised: 06/17/2020 Document Reviewed: 06/17/2020 [employer] Patient Education 2022 Emida. 10/05/2023 21:56:35 Gastroesophageal Reflux Disease, Adult, Viof-rf-Qkpi Gastroesophageal Reflux Disease, Adult Gastroesophageal reflux (ZUNILDA) [...] powder, vinegar, hot sauces, and BBQ sauce. ?Dunsmuir fruit juices and citrus fruits, such as oranges, ronald, and limes. ?Tomato-based foods. These include red sauce, chili, salsa, and pizza with red sauce. ?Fried and fatty foods. These include donuts, australian fries, potato chips, and high-fat dressings. ?High-fat [...] to any changes in your symptoms. Take boga-kps-lfdnvra and prescription medicines only as told by [...] provider. Document Revised: 02/08/2021 Document Reviewed: 02/08/2021 [employer] Patient Education 2022 Emida. 10/05/2023 21:56:35 Abdominal Pain, Adult, Lpss-bg-Rvja Abdominal Pain, Adult Many things can cause belly (abdominal) pain. Most times, belly pain is not dangerous. Many cases of belly pain can be watched and treated at home. Sometimes, though, belly pain is serious. Your doctor will try to find the cause of your belly pain. Follow these instructions at home: Medicines Take ercp-lof-rjllewj and prescription medicines only as told by [...] your belly pain for any changes. Take tvdm-tal-hwtheak and prescription medicines only as told by [...] provider. Document Revised: 12/09/2019 Document Reviewed: 12/09/2019 [employer] Patient Education 2022 Emida. Follow Up Care 10/05/2023 17:56:41 With:Taylor HENRIQUEZ Address: [address] [place] [address]- [phone] Business (1) When:10/08/2023 20:57:11 With:Peggy Nazario Address: [address] [place] [address]- Business (1) When:Within 3 Day(s) [facility] 10-05-2023 Evaluation + Plan note Extrac deepak from: Title:ED Note Author:Nica Knox PA-C . Date:10/05/23 1. Constipation (K59.00: Con stipation, unspecified) [...] day(s), # 28 tab(s), Refills(s) 0, Pharmacy: [facility], 165, cm, 10/05/23 18:07:00 EST, Height/Length Dosing, 50.3, kg, 10/05/23 18:07:00 EST, Weight Dosing lidocaine topical, 200 mg, 10 mL, Soln-Oral, Oral, Once, Stop date 10/05/23 20:48:00 EST, STAT, Start date 10/05/23 20:48:00 EST ECG 12 Lead Adult Future Appointments Appointment Date:01/24/2024 02:30:00 PM Scheduled Provider:Micheline BROOKS MD Location:[facility] Appointment Type:URO Office Visit Future Scheduled Tests Laboratory* Basic Metabolic Panel 07/12/23 * Digoxin Level 07/12/23 [facility]02-19-2024 Miscellaneous Notes* Telephone Encounter - Junito Mendes - 10/02/2023 9:35 AM EST October 02, 2023 Patient Contact Number: [phone] Patient last seen within the last year: Yes Date of last office visit: 09/26/2023 Reason For Call: Test Results; pt requesting to go over 09/26 labs Physician: Alea Harley MD Patient was informed that non-urgent calls may be returned within the next three business days. Yes Junito Mendes [facility] NoteHNO ID: [id number] Author: RAPHAEL GOLDSMITH MD Service: ? Author Type: Physician Type: Progress Notes Filed: 09/26/2023 16:38 Note Text: [facility]VIC [...] Female Pelvic Medicine and Reconstructive Surgery Electronically [facility] Nurse Note* Chrissy Roberts OCCA - 09/26/2023 2:28 PM EST Post Void Residual done on patient with 45 cc residual volume remaining. notified. CARISSA Ferrell documented in this encounterWayne Hospital02-13-[facility]24 History of Present illness Narrative* Raphael Goldsmith MD - 09/26/2023 2:[address] [facility] FOR FEMALE [...] Medicine and Reconstructive Surgery documented in this encounterWayne Hospital02-[facility]-2024 NotePatient Outreach (UROLMN) HARJIT ASENCIO I ([id number]) 1950 F Date Time Provider Department 09/26/23 [...] for genitourinary condition [Z13.89] Order(s):URINALYSIS, REFLEX MICROSCOPIC [[id number]] Order #: [id number]. #:[id number] Prescriptions as of 09/29/2023 - pantoprazole DR [...] malnutrition (HCC) [E43] 08/30/2023 Encounter Status:Closed by NORMA SALGUEROR on 09/29/23[facility] 09-26-2023 NoteHNO ID: [id number] Author: ANA RIVAS APRN.ROLLER HAND Service: ? Author Type: Nurse Practitioner Type: Progress Notes Filed: 09/26/2023 10:41 Note Text: [facility] [place] [facility] Department of Cardiovascular Medicine SECTION OF CLINICAL CARDIOLOGY OUTPATIENT VISIT DATE September 26, 2023 OUTPATIENT VISIT TYPE ESTABLISHED PRIMARY CARE PHYSICIAN: Peggy Nazario MD [address] [place] [address] REFERRING PHYSICIAN: Dr. Alea Harley [address] [facility] [address] CHIEF COMPLAINT: Established Patient HISTORY OF PRESENT ILLNESS: Ms. Asencio is a 73 year old female who presents today for a cardiovascular medicine follow-up visit. She is an established patient of Dr. Harley. Patients past medical history is significant for: HFrEF (40-45%) Atrial fibrillation, persistent on apixaban, digoxin and carvedilol S/p HAROON DCCV on 08/28/2023 Heart murmur Tricuspid regurgitation [...] to valsartan Evaluated by Dr. Sorto in [facility] re: candidacy for cardiac surgery. Deemed [...] Laterality Date EXC CYST/ABERRANT BREAST TISSUE OPEN 1/ LESION PAST SURGICAL HISTORY OF 1995 tailbone [...] (0.125 mg) tabl (more content not included)... [facility]02-13-2024 Instructions* Patient Instructions* Ana Rivas APRN.CNP [...] with labs and EKG documented in this encounterWayne Hospital02-13-2024 History of Present illness Narrative* Ana Rivas APRN.CNP - 09/26/2023 8:51 AM EST Images from the original note were not included. [facility] [place] [facility] Department of Cardiovascular Medicine SECTION OF CLINICAL CARDIOLOGY OUTPATIENT VISIT DATE September 26, 2023 OUTPATIENT VISIT TYPE ESTABLISHED PRIMARY CARE PHYSICIAN: Peggy Nazario MD [address] [place] [address] REFERRING PHYSICIAN: Dr. Alea Harley [address] [facility] [address] CHIEF COMPLAINT: Established Patient HISTORY OF PRESENT ILLNESS: Ms. Asencio is a 73 year old female who presents today for a cardiovascular medicine follow-up visit. She is an established patient of Dr. Harley. Patients past medical history is significant for: HFrEF (40-45%) Atrial fibrillation, persistent on apixaban, digoxin and carvedilol S/p HAROON DCCV on 08/28/2023 Heart murmur Tricuspid regurgitation [...] better. Will review with Dr. Sorto in [facility]. He will be seeing her later [...] better seen and more prominent on outside HAROON 07/21/23. - There is moderately severe (3+) tricuspid valve regurgitation. - Estimated right ventricular systolic pressure is 44 mmHg consistent with mild pulmonary hypertension. Estimated right atrial pressure is 8 mmHg based on IVC assessment. - The patient has not had a prior CC echocardiographic exam for comparison. * * * Final (Updated) * * * Last HAROON Result Conclusion ECHO TRANSESOPHAGEAL Collected: 08/28/2023 3:59 [...] ECG Confirmed by fellow ZIGGY CRUZ MD ([id number]) on 09/04/2023 1:50:09 PM Confirmed by MD DEJUAN, PhD, KHUSHI ([id number]) on 09/11/2023 1:23:[address] Result Conclusion CTA CHEST (GATED) W IVCON Exam End: 08/23/2023 7:47 AM (Final result) Impression: IMPRESSION: Dilated left ventricle, biatrial enlargement. Mitral valve is noncalcified. Normal caliber thoracic aorta. University Extension Specialist: LILIANA Transcribe Date/Time: Aug 23 2023 11:20A [...] persistent on apixaban, digoxin and carvedilol S/p HAROON DCCV on 08/28/2023 Heart murmur Tricuspid regurgitation [...] obtained by others. CONTACT INFORMATION: Ana Rivas APRN.CNP I personally spent 45 minutes with the patient reviewing cardiac history, patient complaints, performing a physical exam, and developing a plan of care. documented in this encounterWayne Hospital02-08-2024 Miscellaneous Notes* Telephone Encounter - Carmina Reyna RN - 09/21/2023 4:[address] Harley would like patient to come in and be seen to go over this in greater detail. Work on setting her up with an ASSOCIATE TEAM PHYSICIAN and Dr. Harley would like to be in for the appointment. Next Monday. Carmina Reyna, RN * Telephone Encounter - Junito Mendes - 09/21/2023 3:33 PM EST September 21, 2023 Patient Contact Number: [phone] Patient last seen within the last year: [...] days. Yes Junito Mendes documented in this encounterWayne Hospital02-05-2024 History of Present illness Narrative* Farrukh Mcmahan MA - 09/18/2023 6:00 PM EST Images from the original note were not included. Patient: Harjit Asencio : 1950 PCP: Peggy Nazario MD Harjit Asencio is a 73 y.o. female presenting today for follow-up after being discharged from the hospital 1 days ago. The main problem requiring admission was dizziness and shaky. The discharge summaryand/or Transitional Care Management documentation was reviewed. Medication reconciliation was performed as indicated via the Cyrus as Reviewed timestamp. Harjit Asencio was contacted by Transitional Care Management services two days after her discharge. This encounter and supporting documentation was reviewed. The complexity of medical decision making for this patient's transitional care is moderate . Review of Systems Family History Problem Relation Name Age of Onset Diabetes Mother Heart disease Mother Heart disease Father Flowsheet Row Patient Outreach from 09/18/2023 in [facility] with Loida Nathan LPN Discharge Information ED or Hospital Discharge? ED Patient has been contacted within 1 week of being seen in the ED Yes Discharge Date 09/17/23 Discharge [facility] [DX: ACid reflux, Medication reaction] Discharged To: Home Setting Engagement Call Start Time 0955 Medications Discharge medications reviewed and reconciled from [...] Lia Shields - 09/18/2023 6:00 PM EST Harjit Asencio is a 73 y.o. female presents today for ER follow up. HPI: Pt here today for ER follow up. Pt seen at [facility] on 09/17/23 due to dizziness and shaking. Hospitalrecords were reviewed. Pt had an elevated BP. She believes the dizziness and shaking was caused by the valsartan. She had the same issues when she was on it before, was advised to cut it in half. Shestates she has been feeling better since she stopped it. Pt would like a referral to a new planner/surgeon. She states she has been told that [...] be referred to a cardiothoracic surgeon at [facility]. Discussed some risks of surgery. - Ambulatory referral to Cardiothoracic Surgery; Future Entered by _El_, acting as scribe for Dr. Lr_. Signature _Heath MCMAHON_ Date _09/18/2023_. The documentation recorded by the scribe accurately reflects the service(s) I personally performed and the decisions I made. documented in this encounterThree Rivers [id number] Evaluation + Plan note Extracted from: Title:ED [...] PM Scheduled Provider:Micheline BROOKS MD Location:[facility] Appointment Type:URO Office Visit Future Scheduled Tests Laboratory* Basic Metabolic Panel 07/12/23 * Digoxin Level 07/12/23 [facility]02-04-2024 Hospital Discharge instructions Patient Education 09/17/2023 [...] medicines that you are allergic to. Take dxvu-sqb-ivekckp and prescription medicines only as told by your health care provider. If you were given medicines to treat your allergic reaction, do not drive until your health care provider tells you it is safe. If you have hives or a rash: ?Use an cfrh-cab-apcgdhn antihistamine as told by your health care [...] provider. Document Revised: 01/10/2022 Document Reviewed: 01/10/2022 [employer] Patient Education 2022 Emida. 09/17/2023 06:16:25 Heartburn Heartburn Heartburn is a [...] powder, vinegar, hot sauces, and barbecue sauce. ?Dunsmuir fruit juices and citrus fruits, such as oranges, ronald, and limes. ?Tomato-based foods, such as red sauce, chili, salsa, and pizza with red sauce. ?Fried and fatty foods, such as donuts, australian fries, potato chips, and high-fat dressings. ?High-fat [...] ask your health care provider. Medicines Take zgpu-tlx-tngyaiy and prescription medicines only as told by [...] told by your health care provider. Take hrha-bev-knctqcy and prescription medicines only as told by [...] provider. Document Revised: 02/03/2021 Document Reviewed: 02/03/2021 [employer] Patient Education 2022 Emida. Follow Up Care 09/17/2023 04:56:21 With:Peggy Nazario Address: [address] [place], [place] [id number] Business (1) When:Within 3 Day(s) [facility]02-04-2024 Miscellaneous Notes* Telephone Encounter - Carmina [...] (valsartan) again. Carmina Mcmahan APRN.CNP [facility] [employer] Sales Manager 09/17/2023 6:29 AM documented in this encounterWayne Hospital02-04-2024 Miscellaneous Notes* Telephone Encounter - Carmina Mcmahan APRN.CNP - 09/17/2023 4:21 AM EST [facility] Contact Center Inbound Phone Encounter DATE of SERVICE: 09/17/2023 TIME of SERVICE: 4:21 AM Status: Urgent Service/Provider: Clinical Cardiology Alea Harley MD Reason for call: Medication Issue/Question Contact information: [phone] Resolution: Reinforced education and Sent to [facility] Comments: Patient calling after waking up with [...] to try. Carmina Mcmahan APRN.TALIB [facility] [employer] Insurance Sales Manager Date of Resolution: 09/17/2023 Time of Resolution 4:21 AM documented in this encounterWayne Hospital02-02-2024 Telephone encounter Note * Telephone Encounter - Rupal Lemus - 09/15/2023 1:24 PM EST Pt calls to check status of this, wants this done as quickly as possible, states that she will haveto cut pills in half to make it through the weekend and missed one last night. [facility] [id number] Miscellaneous Notes* Telephone Encounter - Rupal Lemus [...] said she would [facility] * Telephone Encounter - Farrukh Mcmahan MA - 09/13/2023 11:06 AM EST Rx signed yesterday * Telephone Encounter - Candis Amaro - 09/13/2023 11:01 AM EST Pt calls for refill of lorazepam is almost out will be out completely on monday documented in this encounterThree Rivers HealthcareXodlrfcpkw57-41-1354 Telephone encounter Note* Telephone Encounter - Candis Amaro - 09/15/2023 9:49 AM EST Pt calls to ask if [facility] will be [facility] on Monday [facility] [id number] Telephone encounter Note* Telephone Encounter - Candis Amaro - 09/13/2023 11:25 AM EST Pt said she would like it sent to [facility] not [facility] [id number] Telephone encounter Note* Telephone Encounter - Farrukh Mcmahan MA - 09/13/2023 11:06 AM EST Rx signed yesterday [facility] [id number] Telephone encounter Note* Telephone Encounter - Candis Amaro - 09/13/2023 11:01 AM EST Pt calls for refill of lorazepam is almost out will be out completely on monday [facility] [id number] Evaluation + Plan noteExtracted from: Title:ED Note Author:Parveen Ayers DOElise Date :09/12/23 Acid reflux (K21.9: Gastro-e sophageal [...] PM Scheduled Provider:Micheline BROOKS MD Location:[facility] Appointment Type:URO Office Visit Future Scheduled Tests Laboratory* Basic Metabolic Panel 07/12/23 * Digoxin Level 07/12/23 [facility]01-30-2024 Hospital Discharge instructions Patient Education 09/12/2023 [...] as meditation or yoga. General instructions Take nsvr-gjm-fgpuzee and prescription medicines only as told by [...] provider. Document Revised: 05/20/2022 Document Reviewed: 05/20/2022 [employer] Patient Education 2022 Emida. 09/12/2023 06:47:40 Gastroesophageal Reflux Disease, Adult Gastroesophageal [...] powder, vinegar, hot sauces, and barbecue sauce. ?Dunsmuir fruit juices and citrus fruits, such as oranges, ronald, and limes. ?Tomato-based foods, such as red sauce, chili, salsa, and pizza with red sauce. ?Fried and fatty foods, such as donuts, australian fries, potato chips, and high-fat dressings. ?High-fat [...] to any changes in your symptoms. Take cssd-wcz-krcmeyo and prescription medicines only as told by [...] you have new or worsening symptoms. Take qnwo-usd-akjrcfn and prescription medicines only as told by [...] provider. Document Revised: 02/08/2021 Document Reviewed: 02/08/2021 [employer] Patient Education 2022 Emida. Follow Up Care 09/12/2023 04:04:55 With:Peggy Nazario Address: [address] [place] [id number] Business (1) When:Within 3 Day(s) [facility]01-18-2024 NoteHNO ID: [id number] Author: CAN RIBERA RPh Service: Pharmacy Author Type: Pharmacist Type: Plan of Care Filed: 08/31/2023 15:25 Note Text: HEART FAILURE DISCHARGE MEDICATION REVIEW BY PHARMACY Patient Name: Harjit Asencio Account #: Data Unavailable Admission Date: [...] prohibitive at this time due to deductible Can Ribera RPh August 31, 2023 2:01 PM Pager: [phone] Medication List START taking these medications polyethylene [...] Your Medications These medications were sent to [facility] [address] [place] [address] Hours: Monday-Monday 7am-8pm, Monday, Monday and Holidays 9am-5pm apixaban 5 mg tab(s) atorvastatin 40 mg tablet carvedilol 12.5 mg tablet digoxin 125 mcg (0.125 mg) tablet polyethylene glycol 3350 17 gram/dose powder spironolactone 25 mg tablet valsartan [address] [facility] NoteHNO ID: [id number] Author: MILAGRO RINALDI, Delia Service: Pharmacy Author Type: Corporate Relations Director Type: Plan of Care Filed: 08/31/2023 15:48 Note Text: PHARMACY BEDSIDE DELIVERY SERVICE Patient Name: Harjit Asencio The marked outpatient medications were Filled [...] disintegrating tablet Commonly known as: ZOFRAN ODT Milagro Rinaldi PAGER: [phone] August 31, 2023 1:42 [facility]01-18-2024 NoteHNO ID: [id number] Author: MILAGRO RINALDI, ? Service: Pharmacy Author Type: Corporate Relations Director Type: Plan of Care Filed: 08/31/2023 11:37 [...] 1 Any questions, please page your medication [place] [phone]. Thank you (Prices may vary at different pharmacy locations, this is the cost at [facility] [facility]01-17-2024 NoteHNO ID: [id number] Author: CARLITOS MIDDLETON MD Service: Cardiovascular Medicine Author Type: Physician Type: Progress Notes Filed: 08/30/2023 10:22 Note Text: [facility] CARDI[facility]ICINE PROGRESS NOTE NAME: Harjit Asencio SERVICE DATE: 08/30/2023 Interval History and Plan for the Day: No acute events overnight. Patient feeling better today, but feels irritation from the robles. HDS: Afebrile, HDS, SpO2 > 92% on RA Intake/Output Summary (Last 24 hours) at 08/30/2023 0752 Last data filed at 08/30/2023 0605 Gross per 24 hour Intake -- Output 2525 ml Net -2525 ml 08/28: HAROON+ Cardioversion, well tolerated CT flank 08/29/23: No [...] Peripheral 08/24/23 1906 Left Forearm 20 Gauge 5 days Drain Duration Indwelling Urinary Catheter 08/28/23 1910 [facility] Robles 14 Fr 1 day Intake / Output Intake/Output Summary (Last 24 hours) at 08/30/2023 0750 Last data filed at 08/30/2023 0605 Gross per 24 hour Intake -- Output 2525 ml Net -2525 ml Work Up Imaging: HAROON 08/28/22: LV dilated. Left ventricular systolic function [...] 08/25/23 0636 08/24/23 2113 08/23/23 1144 WBC 8.00 6.22 5.61 7.27 6.38 [...] last 168 hours. BMP: Recent Labs 08/29/23 0903 08/28/23 0521 08/27/23 0839 08/26/23 0702 08/25/23 1330 08/25/23 0636 08/24/23 2113 08/23/23 1144 08/23/23 0813 GLUC 85 88 92 [...] 1.02* 1.11* 0.98* 0.97* CHEM: Recent Labs 08/29/23 0903 08/28/23 0521 08/27/23 0839 0 (more content not included)...[facility]01-16-2024 Note HNO ID: [id number] Author: KHUSHBOO SANCHEZ RT(R) Service: Radiology Author Type: Technologist Type: Progress Notes Filed: 08/29/2023 14:46 Note Text: Radiology Service Progress Note PATIENT NAME: Harjit Asencio DATE OF SERVICE: August 29, 2023 [...] BY: RT Maisha(R) August 29, 2023 2:45 [facility]24 NoteHNO ID: [id number] Author: STEPHANIE PALACIOS MD Service: Urology Author [...] questions. Stephanie Palacios MD Resident PGY-2 Urology [facility] [place] [facility] Pager [phone] After hours and on weekend outreach consultant pager [phone] Health St. [facility]2024 NoteHNO ID: [id number] Author: CARLITOS MIDDLETON MD Service: Cardiovascular Medicine Author Type: Physician Type: Progress Notes Filed: 08/29/2023 10:42 Note Text: [facility]ARDI[facility]ICINE PROGRESS NOTE NAME: Harjit Asencio SERVICE DATE: 08/29/2023 Interval History and Plan for the Day: No acute events overnight. Robles catheter (14 australian) was inserted yesterday because BS showed 305 then 250 cc. Patient feeling better today, but feels irritation from the robles. HDS: Afebrile, HDS, SpO2 > 92% on RA I/O: 850 L in / 925 UOP in 24h New Imaging: HAROON 08/28/22: no thrombus 08/28: HAROON+ Cardioversion, well tolerated 24 hour plan: - UC with >=100,000 CFU/ml Klebsiella oxytoca, I resistance to nitrofurantoin, and the patient has allergy to cephalexin and sulfa drugs, so will treat with ciprofloxacin > Urology: - robles 14 australian - pyridium 200 mg TID for 6 [...] Peripheral 08/24/23 1906 Left Forearm 20 Gauge 4 days Drain Duration Indwelling Urinary Catheter 08/28/23 1910 [facility] Robles 14 Fr <1 day Intake / Output Intake/Output Summary (Last 24 hours) at 08/29/2023 0803 Last data filed at 08/29/2023 0607 Gross per 24 hour Intake 50 ml Output 925 ml Net -875 ml Work Up Imaging: US KIDNEY/BLADDER Final Result IMPRESSION: NO HYDRONEPHROSIS. University Extension Specialist: LILIANA Transcribe Date/Time: Aug 25 2023 10:35A [...] the last 168 hours. BMP: Recent Labs 08/28/2352008/27/2383808/26/23 0708/25/23 1330 08/25/2363508/24/23211208/23/23 1144 08/23/23 0813 08/23/23 [...] 1.11* 0.98* 0.97* 1.10 CHEM: Recent Labs 08/28/2352008/27/2383808/26/23 0708/25/23 0636 08/24/23211208/23/23 1144 ALB 3.5* 3.6* 3.5* 3.4* 3.8* 4.4 TPROT 5.9* 5.8* 5.7* 5.7* 6.1* 6.8 CA 9.5 9.1 8.9 9.0 9.2 9.8 MG -- -- -- 2.2 -- -- HEPATIC: Recent Labs 08/28/2352008/27/2383808/26/23 0708/25/23 0636 08/24/23 2113 08/23/23 1144 ALKPHOS 52 59 60 48 61 66 ALT 31 29 25 26 34 40* AST 26 27 22 23 27 31 TBILI 0.5 0.5 0.4 0.9 0.7 0.8 URINALYSIS: Recent Labs 08/24/235 SPGR 1.021 UGLUC Negative UBILI Negative UKET Trace* UHB Trace* UPROT 1+* CARDIAC: Recent Labs 08/23/23 1144 PBNP 3,265* IMAGING: T (more content not included)...[facility]01-15-2024 NoteHNO ID: [id number] Author: YADIEL MOTLEY MD Service: Cardiovascular Medicine Author Type: Fellow Type: Plan of Care Filed: 08/28/2023 18:27 Note Text: Discussed with the patient the details of the cardioversion procedure prior to sedation administration for the HAROON exam. Ms. Asencio was informed about the indication, and was made aware of the risks associated with the procedure including post-cardioversion bradycardia and an increased risk of stroke in the post-cardioversion period. Ms. Asencio expressed understanding and is agreeable to proceed with the cardioversion. She understands that she will have to maintain anticoagulation for at least four weeks following gnosticism of sinus rhythm. Yadiel Motley MD Cardiovascular Medicine Fellow [facility] [place] [facility] 4[facility]01-15-2024 NoteHNO ID: [id number] Author: CAN RIBERA [facility] Service: Pharmacy Author Type: Pharmacist Type: Plan of Care Filed: 08/28/2023 13:36 Note Text: PHARMACY MEDICATION REVIEW Patient Name: Harjit Asencio : 1950 The following medications were updated within the PHARMACOVIGILANCE SCIENTIST medication list: Medications ADDED to PHARMACOVIGILANCE SCIENTIST medication list Lorazepam 1mg tablets Take 1 tablet by mouth every 6 hours as needed for anxiety. Medications CHANGED on PHARMACOVIGILANCE SCIENTIST medication list Carvedilol 3.125mg tablets Added to directions: take twice daily with meals. Medications REMOVED from PHARMACOVIGILANCE SCIENTIST medication list Ativan 0.5mg and lorazepam 0.5mg [...] medication history: Yes Medication history completed by: Braille Teacher: Becca Coleman Source of history: Patient: Reliability of source: Appears reliable, clearly identified: Medication name, Medication frequency, and Indications, Pharmacy records: [facility], and [facility] records Medication nonadherence identified: Unable to assess Reconciliation completed: Yes Completed by: Can Ribera RPh All PHARMACOVIGILANCE SCIENTIST medications addressed by LIP Patient interested in Bedside Delivery Services or using [facility] OP Pharmacy at discharge? Yes. Discharge Pharmacy Updated Preferred outpatient pharmacy: [id number] [place] [address] - [address] [facility] [phone] [address] [address] [place] [address] - [address] - [phone] e- [facility]/pharmacy #[id number] [place] [address] - [address] - [phone] [facility] [address] [facility] Patient not interested in [facility]'s home delivery service at this time. Allergies: [...] TONGUE EVERY 8 HOURS Facility-Administered Medications: None Becca Coleman 08/28/2023[facility]01-15-2024 NoteHNO ID: [id number] Author: CAN RIBERA RPh Service: Pharmacy Author Type: Pharmacist Type: Plan of Care Filed: 08/28/2023 13:27 Note Text: [facility] Home Delivery Program Patient Name: Harjit Asencio Admission Date: 08/24/2023 Date of Contact: August 28, 2023 Would patient like to be enrolled into [facility] Home Delivery program: No Beccajim Palmerher August 28, 2023 1:07 [facility]01-15-2024 NoteHNO ID: [id number] Author: UDKE MORELOS RN Service: Care Management Author Type: Registered Nurse Type: Care Mgt Progress Note Filed: 08/28/2023 10:54 Note Text: CARE MANAGEMENT PROGRESS NOTE SERVICE DATE: 08/28/2023 SERVICE TIME: 10:53 AM LOS: 4 days SCREENED OUT, REASSESS 08/30. 6 click 22, 97% RA. Per team: Not a surgical candidate. Anticipate GDMT and possible HAROON DCCC if no intervention by structural team. This patient has been screened for Care Management Transitional Planning Services. At this time, it does not appear this patient will require transition planning services. Should this change, and the patient require transition planning services during this admission, please contact Case Management. SIGNATURE: Duke Morelos RN PATIENT NAME: Harjit Asencio DATE: August 28, 2023 TIME: 10:53 AM PAGER/CONTACT #: [phone]01-15-2024 NoteHNO ID: [id number] Author: BECCA COLEMAN, Delia Service: Pharmacy Author Type: Corporate Relations Director Type: Plan of Care Filed: 08/28/2023 09:37 [...] 3 Any questions, please page [place] [phone]. Thank you (Prices may vary at different pharmacy locations, this is the cost at [facility]01-15-2024 NoteHNO ID: [id number] Author: CARLITOS MIDDLETON MD Service: Cardiovascular Medicine Author Type: Physician Type: Progress Notes Filed: 08/28/2023 10:22 Note Text: [facility] CARDI[facility]ICINE PROGRESS NOTE NAME: Harjit Asencio SERVICE DATE: 08/28/2023 Interval History and [...] US KIDNEY/BLADDER Final Result IMPRESSION: NO HYDRONEPHROSIS. University Extension Specialist: LILIANA Transcribe Date/Time: Aug 25 2023 10:35A [...] BMP: Recent Labs 08/28/2352008/27/23 0808/26/23 0708/25/23 1330 08/25/23 0636 08/24/23211208/23/23 1144 08/23/23 0813 [...] 1.11* 0.98* 0.97* 1.10 CHEM: Recent Labs 08/28/2352008/27/2339 08/26/23 0702 08/25/23 0636 08/24/23211208/23/23 1144 ALB 3.5* 3.6* 3.5* 3.4* 3.8* 4.4 TPROT 5.9* 5.8* 5.7* 5.7* 6.1* 6.8 CA 9.5 9.1 8.9 9.0 9.2 9.8 MG -- -- -- 2.2 -- -- HEPATIC: Recent Labs 08/28/2352008/27/23 0839 08/26/23 0702 08/25/23 0636 08/24/23 2113 08/23/23 1144 ALKPHOS 52 59 60 48 61 [...] presents for pre-operative optimization (more content not included)...[facility]01-14-2024 NoteHNO ID: [id number] Author: BECCA COLEMAN ? Service: Pharmacy Author Type: Corporate Relations Director Type: Plan of Care Filed: 08/27/2023 12:07 Note Text: Insurance investigation completed Patient has active prescription insurance: Yes - Patient's insurance is in-network with [facility] Insurance loaded into [place]: Yes Test claim was completed to verify insurance is active: Successful Any questions, please contact your medication toy trains and accessories salesperson. Pager #: [phone] Health St. [facility]01-14-2024 NoteHNO ID: [id number] Author: AMINA PETERSEN MD Service: Cardiovascular Medicine Author Type: Physician Type: Progress Notes Filed: 08/27/2023 12:32 Note Text: [facility] CARDI[facility]ICINE PROGRESS NOTE NAME: Harjit Asencio SERVICE DATE: 08/27/2023 Interval History and [...] US KIDNEY/BLADDER Final Result IMPRESSION: NO HYDRONEPHROSIS. University Extension Specialist: LILIANA Transcribe Date/Time: Aug 25 2023 10:35A Dictated by : NANCY YOUNGBLOOD MD This examination was interpreted and the report reviewed and electronically signed by: NANCY YOUNGBLOOD MD on Aug 25 2023 10:38AM EST Labs: CBC: Labs 08/26/23 0708/25/2363508/24/23211208/23/23 1144 WBC 7.27 6.38 7.40 6.24 HB [...] INR in the last 168 hours. BMP: Labs 08/26/23 0708/25/23 1330 08/25/23 0608/24/23211208/23/23 1144 08/23/23 0813 08/23/23 0732 GLUC 93 [...] 0.98* 0.97* 1.10 CHEM: Recent Labs 08/26/23 0702 08/25/23 0636 08/24/23211208/23/23 1144 ALB 3.5* 3.4* 3.8* 4.4 TPROT 5.7* 5.7* 6.1* 6.8 CA 8.9 9.0 9.2 9.8 MG -- 2.2 -- -- HEPATIC: Recent Labs 08/26/23 0702 08/25/23 0636 08/24/23211208/23/23 1144 ALKPHOS 60 48 61 66 ALT [...] in the setting of (more content not included)...[facility]01-13-2024 NoteHNO ID: [id number] Author: AMINA PETERSEN MD Service: Cardiovascular Medicine Author Type: Physician Type: Progress Notes Filed: 08/26/2023 16:13 Note Text: [facility] CARDI[facility]ULAR [facility]ICINE PROGRESS NOTE NAME: Harjit Asencio SERVICE DATE: 08/26/2023 Interval History and [...] US KIDNEY/BLADDER Final Result IMPRESSION: NO HYDRONEPHROSIS. University Extension Specialist: LILIANA Transcribe Date/Time: Aug 25 2023 10:35A Dictated by : NANCY YOUNGBLOOD MD This examination was interpreted and the report reviewed and electronically signed by: NANCY YOUNGBLOOD MD on Aug 25 2023 10:38AM EST Labs: CBC: Recent Labs 08/26/23 0708/25/2363508/24/23211208/23/23 1144 WBC 7.27 6.38 7.40 6.24 HB [...] last 168 hours. BMP: Recent Labs 08/26/23 0708/25/23 1330 08/25/2363508/24/23211208/23/23 1144 08/23/23 0813 08/23/23 [...] function: - Stop l (more content not included)...[facility]01-13-2024 History of Past illness Narrative* Problem Noted Date Diagnosed Date Resolved Date Acute on chronic systolic co ngestive heart failure 08/26/2023 08/27/2023 documented as of this encounter (statuses as of 09/17/2023) [facility]01-13-2024 History of Past illness Narrative* Problem Noted Date Diagnosed Date Resolved Date Acute on chronic systolic co ngestive heart failure 08/26/2023 08/27/2023 documented as of this encounter (statuses as of 09/21/2023) [facility]01-13-2024 History of Past illness Narrative* Problem Noted Date Diagnosed Date Resolved Date Acute on chronic systolic co ngestive heart failure 08/26/2023 08/27/2023 documented as of this encounter (statuses as of 09/26/2023) [facility]01-13-2024 History of Past illness Narrative* Problem Noted Date Diagnosed Date Resolved Date Acute on chronic systolic co ngestive heart failure 08/26/2023 08/27/2023 documented as of this encounter (statuses as of 09/26/2023) [facility]01-13-2024 History of Past illness Narrative* Problem Noted Date Diagnosed Date Resolved Date Acute on chronic systolic co ngestive heart failure 08/26/2023 08/27/2023 documented as of this encounter (statuses as of 09/29/2023) [address]13-2024 History of Past illness Narrative* Problem Noted Date Diagnosed Date Resolved Date Acute on chronic systolic co ngestive heart failure 08/26/2023 08/27/2023 documented as of this encounter (statuses as of 10/02/2023) [facility]01-13-2024 History of Past illness Narrative* Problem Noted Date Diagnosed Date Resolved Date Acute on chronic systolic co ngestive heart failure 08/26/2023 08/27/2023 documented as of this encounter (statuses as of 10/16/2023) [facility]01-13-2024 History of Past illness Narrative* Problem Noted Date Diagnosed Date Resolved Date Acute on chronic systolic co ngestive heart failure 08/26/2023 08/27/2023 documented as of this encounter (statuses as of 10/17/2023) [facility]01-13-2024 NoteHNO ID: [id number] Author: NOTE, INTERFACE, ? Service: ? Author Type: ? Type: Progress Notes Filed: 08/26/2023 02:15 Note Text: Epic Scheduled Downtime: 08/26/2023 1:00:00 AM to 08/26/2023 2:04:22 [facility]01-12-2024 NoteHNO ID: [id number] Author: DUKE MORELOS RN Service: Care Management [...] ASENCIO Mobile Relation: Son Secondary Emergency Contact: MANDEEP ASENCIO Mobile Relation: Daughter Admission Status: Inpatient Insurance Provider: MEDICARE A AND B SIGNATURE: Duke Morelos RN PATIENT NAME: Harjit Asencio DATE: August 25, 2023 TIME: 2:45 PM CONTACT #: [phone] [address]01[facility]11-2024 Note HNO ID: [id number] Author: MICHELINE SORTO MD Service: ? Author Type: Physician Type: Progress Notes Filed: 08/24/2023 08:19 Note Text: Heart, Vascular and Thoracic [place] DEPARTMENT OF CARDIAC SURGERY OUTPATIENT VISIT PCP: Peggy [place] [address] [place] [address] Referring Physician: Micheline Sorto [address] [facility] [address] Patient Type: New Visit to Determine Surgery: Yes HPI: Ms. Harjit Asencio is a 73 year old female [...] valve is noncalcified. Normal caliber thoracic aorta. University Extension Specialist: PSCB Transcribe Date/Time: Aug 23 2023 11:20A [...] better seen and more prominent on outside HAROON 07/21/23. - There is moderately severe (3+) [...] physician via electronic medical record Micheline Sorto [facility]01-10-2024 NoteHNO ID: [id number] Author: ALEA HARLEY MD Service: ? Author Type: Physician Type: Progress Notes Filed: 08/23/2023 12:58 Note Text: Heart and Vascular [place] [facility] Department of Cardiovascular Medicine SECTION OF CLINICAL CARDIOLOGY OUTPATIENT VISIT DATE August 23, 2023 OUTPATIENT VISIT TYPE NEW PRIMARY CARE PHYSICIAN: Peggy Nazario MD [address] [place] [address] REFERRING PHYSICIAN: Micheline Sorto [address] [facility] [address] CHIEF COMPLAINT: Mitral regurgitation. HISTORY OF PRESENT [...] emptying her bladder. When seen in the [facility] ER, she was found to be in [...] After discharge she underwent a follow up HAROON with Dr. Henriquez who then found her EF to be 40%, with what he interpreted to be severe, central MR - although ERO calculation was more conservative at 0.26 cm2 without PV flow reversal. On medical management that includes dig, low dose carvedilol, DOAC with apixaban, and low dose losartan she feels better. She is being referred by her private planner, Dr.D. Henriquez for consideration of MVr. As [...] is a 73 year old female from [place], [place] here today for cardiovascular evaluation related to severe mitral and tricuspid regurgitation. She is currently consulted with Dr. Sorto in cardiac surgery for potential surgical intervention. Harjit has a significant medical history of GERD, [...] Laterality Date EXC CYST/ABERRANT BREAST TISSUE OPEN /> LESION PAST SURGICAL HISTORY OF 1995 tailbone [...] to take it. Late (more content not included)...[facility]01-10-2024 NoteHNO ID: [id number] Author: MADELINE SCALES RN Service: Nursing Author Type: Registered [...] IV SITE APPEARANCE: Clean,Dry and Intact SIGNATURE: Madeline Scales RN PATIENT NAME: Harjit Asencio DATE: August 23, 2023 TIME: 7:21 [facility]01-10-2024 NoteHNO ID: [id number] Author: ANDREW SERRANO RT(R) Service: Radiology Author Type: Technologist Type: Progress Notes Filed: 08/23/2023 07:46 Note Text: Radiology Service Progress Note PATIENT NAME: Harjit Asencio DATE OF SERVICE: August 23, 2023 [...] and Intact, Site disposition Discontinued SIGNED BY: RT Felicitas(R) August 23, 2023 7:35 [facility]12-11-2023 Note [id number] [facility] 07-24-2023 Miscellaneous Notes* Telephone Encounter - Cesar Nunn - 07/24/2023 10:22 AM EST IN * Telephone Encounter - Katie Nicholson - 07/24/2023 10:08 AM EST Please register insurance Thank you! [facility] Evaluation + Plan note Extracted from: Title:Procedure Note Heart & Vascular Author:LEYDA KELLER MD, Taylor Patino Date:07/21/23 Ordered: benzocaine/butamben/tetracaine topical, 3 spray(s), [place]-Top, Topical, q2min PRN Other (see comment), Routine, [...] Diet Oxygen Therapy Saline Lock Insert Suctioning HAROON ([facility]) Vital Signs Future Appointments Appointment Date:01/24/2024 02:30:00 PM Scheduled Provider:Micheline BROOKS MD Location:[facility] Appointment Type:URO Office Visit Future Scheduled Tests Laboratory* Basic Metabolic Panel 07/12/23 * Digoxin Level 07/12/23 [facility]12-08-2023 Hospital Discharge instructions Patient Education 07/21/2023 08:44:29 CV - Post-Transesophageal Echocardiogram (Custom) [place], [place] POST-TRANSESOPHAGEAL ECHOCARDIOGRAM AFTER THE PROCEDURE: Diet: [...] appointment Seek Medical Care if: Notify your planner should you have any difficulty swallowing or coughing up blood. In the event you are unable to reach your planner, please call [facility] at [phone] and the meat grading machine operator will assist you. Follow Up Care 07/20/2023 11:03:45 With:Taylor HENRIQUEZ Address: [address] [place] [phone] [phone] Business (1) When: Unknown Comments:-After your appointment with [facility]12-08-2023 Evaluation + Plan note Future Appointments Appointment Date:07/21/2023 08:00:00 AM Scheduled Provider: Location[facility] Appointment Type:[facility] () Appointment Date:07/21/2023 08:00:00 AM Scheduled Provider: Location:.[facility] Appointment Type:CV Echo () Appointment Date:01/24/2024 02:30:00 PM Scheduled Provider:Micheline BROOKS MD Location:[facility] Appointment Type:URO Office Visit Future Scheduled Tests Laboratory* Basic Metabolic Panel 07/12/23 * Digoxin Level 07/12/23 Radiology* Echo Transesophageal 2D 07/21/23 [facility]11-24-2023 Hospital Discharge instructions Patient Education 07/07/2023 [...] health careprovider. Avoid caffeine, alcohol, and certain myyl-kxt-yenkfmh cold medicines. These may make you feel worse. Ask your pharmacist which medicines to avoid. General instructions Take dlhb-kxo-jbaddzf and prescription medicines only as told by [...] Depression Association of [place] (ADAA): www.adaa.org National [place] on Mental Illness (TAYLOR): www.taylor.org Contact a health care provider if: You [...] department or: Call your local emergency services (564 in the [place] Call a suicide crisis helpline, such as the National Suicide Prevention Lifeline at or 271 in the [place] This is open 24 hours a day in the [place] Text the Crisis Text Line at 556561 (in the [place] Summary Taking steps to [...] provider. Document Revised: 02/23/2022 Document Reviewed: 11/21/2021 [employer] Patient Education 2022 [employer] 07/07/2023 13:04:14 Atrial Fibrillation Atrial Fibrillation Atrial [...] electrical signals of the heart. An ambulatory media monitor to record your heart's activity for a few days. A transthoracic echocardiogram (TTE) to create pictures of your heart. A transesophageal echocardiogram (HAROON) to create even closer pictures of your [...] provider. Document Revised: 01/22/2020 Document Reviewed: 01/22/2020 [employer] Patient Education 2022 [employer]. Follow Up Care 07/07/2023 08:56:48 With:Taylor HENRIQUEZ Address: [address] [place] [address]- [phone] Business (1) When:07/10/2023 12:45:48 With:Peggy Nazario Address: [address] [place] [address]- Business (1) When:07/10/2023 12:45:46 [facility]11-24-2023 [facility] HospitalComment on above:Result Comment: Electronically Signed By: Nahid SERRATO MD\.br\Date and Time Signed: 07/07/23 12:07 [id number] Evaluation + Plan noteExtracted from: Title:APSO Note Author:Nahid SERRATO MD Date:09/05/22 73-year-old female with history of ureteral stricture with previous dilations, anxiety disorder presented with complaints of urinary hesitancy, constipation, cough and shortness of breath and was [facility] with acute paroxysmal atrial fibrillation with rapid [...] IV Cardizem drip. Continue on Coreg, digoxin. Manager Local debating on starting patient on amiodarone. Eliquis to start in 4 days after cardiac catheterization. Ordered: [facility] Hospital Care/Day Moderate 35 Minutes [id number] 2. Acute systolic congestive heart failure (I50.21: Acute systolic (congestive) heart failure) Acute systolic congestive heart failure present on admission. Seen by planner and underwent cardiac catheterization that showed mild coronary artery disease. Also shows severe mitral regurgitation and tricuspid regurgitation with ejection fraction of 30 to 35%. Continue on aspirin, Coreg, losartan and Lasix. Ordered: [facility] Hospital Care/Day Moderate 35 Minutes [id number] 3. Severe mitral regurgitation (I34.0: Nonrheumatic mitral (valve) insufficiency) As seen on cardiac catheterization. Patient will follow-up with planner for HAROON and then valvular repair. Manager Local also considering transferring patient to or [facility]. [facility] Moderate 35 Minutes [id number] 4. Elevated troponin (R79.89: Other specified abnormal findings of blood chemistry) Secondary to type II non-ST segment elevation myocardial infarction from above and mild coronary artery disease.. Seen by planner and underwent cardiac catheterization that showed mild coronary artery disease. Continue on aspirin, Lipitor, and Coreg. Ordered: [facility] Hospital Care/Day Moderate 35 Minutes [id number] 5. Mild coronary artery disease (I25.10: Atherosclerotic heart disease of [place] coronary artery without angina pectoris) As seen on cardiac catheterization on 07/05/2023. Continue on Lipitor and aspirin. Ordered: [facility]Day Moderate 35 Minutes [id number] 6. anxiety (F41.9: Anxiety disorder, unspecified) Increase [...] deep vein thrombosis (DVT) prophylaxis (Z79.899: Other halfway (current) drug therapy) SCDs. Eliquis to resume in 4 days. Disposition: Home soon today if heart rate is under good control with plans to follow-up with planner and urologist as outpatient. However if heart rate is still elevated then we will call [facility] or [facility] to see if we can transfer patient for valve repair/replacement. I discussed the diagnosis and plan of care with the patient at the bedside. Moderate level of MDM based on addressing above issues. This documentation was transcribed using voice recognition software. Several attempts were made to ensure accuracy. However inadvertent computerized sueding machine tender errors may be present. Nahid Serrato. Hospitalist. [...] to transfer the patient directly to the [facility] or [facility] given her logistic challenges with getting [...] artery disease (I25.10: Atherosclerotic heart disease of [place] coronary artery without angina pectoris) 6. Pleural effusion (J90: Pleural effusion, not elsewhere classified) 7. Urinary hesitancy (R39.11: Hesitancy of micturition) 8. Other urethral stricture, female (N35.82: Other urethral stricture, female) 9. Urinary retention (R33.9: Retention of urine, unspecified) 10. Constipation (K59.00: Constipation, unspecified) 11. On deep vein thrombosis (DVT) prophylaxis (Z79.899: 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 therapy) Orders: acetaminophen, 650 mg [...] shortness of breath and was admitted to [facility] with acute paroxysmal atrial fibrillation with rapid [...] date 07/06/23 9:00:00 EST, 07/05/23 11:13:00 EST [facility] Hospital Care/Day Moderate 35 Minutes 46772 2. Acute systolic congestive heart failure (I50.21: Acute systolic (congestive) heart failure) Acute systolic congestive heart failure present on admission. Seen by planner. She is status post cardiac catheterization that showed mild coronary artery disease. Also showed severe mitral regurgitation and tricuspid regurgitation.. Ejection fraction of 30 to 35%. Continue on aspirin, Coreg, losartan, Lasix. Ordered: [facility] Hospital Care/Day Moderate 35 Minutes 21595 3. Severe mitral regurgitation (I34.0: Nonrheumatic mitral (valve) insufficiency) Severe mitral regurgitation seen on cardiac catheterization. Follow-up with planner as outpatient for HAROON and then valvular repair. Ordered: [facility] Hospital Care/Day Moderate 35 Minutes [id number] 4. Elevated troponin (R79.89: Other specified abnormal findings of blood chemistry) Secondary to type II non-ST segment elevation myocardial infarction from above and mild coronary artery disease.. Seen by planner and underwent cardiac catheterization that showed mild coronary artery disease. Continue on aspirin, Lipitor, and Coreg. Ordered: furosemide, 40 mg = 1 tab(s), Tab, Oral, Daily, Routine, Start date 07/06/23 9:00:00 EST, 07/05/23 11:13:00 EST [facility] Hospital Care/Day Moderate 35 Minutes 42102 5. Mild coronary artery disease (I25.10: Atherosclerotic heart disease of [place] coronary artery without angina pectoris) As seen on cardiac catheterization on 07/06/2023. Continue on Lipitor and aspirin. Ordered: [facility] Hospital Care/Day Moderate 35 Minutes [id number] 6. Pleural effusion (J90: Pleural effusion, not [...] deep vein thrombosis (DVT) prophylaxis (Z79.899: Other halfway (current) drug therapy) Lovenox. Disposition: Home in a.m. to follow-up with planner and urologist. I discussed the diagnosis and plan of care with the patient at the bedside. Moderate level of MDM based on addressing above issues. This documentation was transcribed using voice recognition software. Several attempts were made to ensure accuracy. However inadvertent computerized sueding machine tender errors may be present. Nahid Serrato. Hospitalist. Orders: Basic Metabolic Panel Basic Metabolic Panel Referral to [facility] Extracted from: Title:APSO Note Author:Nahid SERRATO MD Date:09/03/22 73-year-old female with history of ureteral stricture with previous dilations, anxiety disorder presented with complaints of urinary hesitancy, constipation, cough and shortness of breath and was admitted to [facility] with acute paroxysmal atrial fibrillation with rapid [...] BID, # 60 tab(s), Refills(s) 0, Pharmacy: [facility] #[id number], 165, cm, 07/02/23 21:30:00 EST, Height/Length Dosing, 55.7, kg, 07/02/23 21:30:00 EST, Weight Dosing Echo Transthoracic Complete [facility] Hospital Care/Day Moderate 35 Minutes 49961 2. Acute systolic congestive heart failure (I50.21: Acute systolic (congestive) heart failure) Acute systolic congestive heart failure present on admission. Cardiology is following. Ejection fraction of 30 to 35%. Cardiology is planning on cardiac catheterization for ischemic work-up in AM. Meanwhile continue on aspirin, Coreg, losartan. We will verify with planner about Lasix. Ordered: [facility] Hospital Care/Day Moderate 35 Minutes [id number] 3. Elevated troponin (R79.89: Other specified abnormal findings of blood chemistry) Secondary to type II non-ST segment elevation myocardial infarction from above. Echocardiogram shows ejection fraction of 30 to 35%. Manager Local following with plans for cardiac catheterization in AM. Meanwhile continue on aspirin and Coreg. Ordered: Echo Transthoracic Complete [facility] Hospital Care/Day Moderate 35 Minutes 37519 4. Pleural effusion (J90: Pleural effusion, not elsewhere classified) Small pleural effusion secondary to acute systolic congestive heart failure. Supportive care. Lasix as needed. Ordered: [facility] Hospital Care/Day Moderate 35 Minutes 79026 5. Urinary hesitancy (R39.11: Hesitancy of micturition) Secondary to urethral stricture and urinary retention. She is status post Robles catheter placement. Urology consult reviewed by me. I appreciate and agreed recommendations. Patient will discharge with Robles catheter and leg bag to follow-up with urologist as outpatient. Ordered: [facility]/Day Moderate 35 Minutes [id number] 6. Other urethral stricture, female (N35.82: Other [...] Daily, NOW, Start date 07/03/23 11:16:00 EST [facility] Hospital Care/Day Moderate 35 Minutes 83446 9. On deep vein thrombosis (DVT) prophylaxis (Z79.899: 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 therapy) Lovenox. Disposition: Pending cardiac catheterization in AM. I discussed the diagnosis and plan of care with the patient at the bedside. I also spoke with the patient's daughter Mandeep over the phone. Moderate level of MDM based on addressing above issues. This documentation was transcribed using voice recognition software. Several attempts were made to ensure accuracy. However inadvertent computerized sueding machine tender errors may be present. Nahid Serrato. Hospitalist. [...] deep vein thrombosis (DVT) prophylaxis (Z79.899: Other halfway (current) drug therapy) Urinary retention (R33.9: Retention of urine, unspecified) Extracted from: Title:Consult Note Author:Shell MCMAHON, Jimmie Mcmillan. Date:07/03/23 New onset A-fib RVR and card [...] deep vein thrombosis (DVT) prophylaxis (Z79.899: Other halfway (current) drug therapy) Urinary retention (R33.9: Retention of urine, unspecified) Extracted from: Title:Urology Consult and H&P 2 Author:DYLAN MCMAHON, Cody Dumont Date:07/03/23 Impression and Plan Diagnosis Atrial fibrillation with RVR (PBC35-CD I48.91, Discharge, Medical). Constipation (AIW66-VD K59.00, Discharge, Medical). Other urethral stricture, female (XDA69-NU N35.82, Discharge, Medical). Urinary retention (FVT50-AS R33.9, Working, Medical). Course: Worsening, Overall this [...] I ordered echocardiogram. Ordered: Echo Transthoracic Complete [facility] Hospital Care/Day Moderate 35 Minutes 72747 2. Elevated troponin (R79.89: Other specified abnormal findings of blood chemistry) Secondary to type II non-ST segment elevation myocardial infarction from above. Echocardiogram ordered. Cardiology consult pending. Continue on aspirin. Ordered: Echo Transthoracic Complete [facility] Hospital Care/Day Moderate 35 Minutes 41809 3. Urinary hesitancy (R39.11: Hesitancy of micturition) Secondary to urethral stricture. Patient is status post Robles catheter placement for urinary retention. She will follow-up with urologist as outpatient. Ordered: [facility] Hospital Care/Day Moderate 35 Minutes 84440 4. Constipation (K59.00: Constipation, unspecified) Started patient on MiraLAX and lactulose. Ordered: lactulose, 20 gram = 30 mL, Syrup, Oral, Once, Stop date 07/03/23 12:00:00 EST, Routine, Start date 07/03/23 12:00:00 EST, 07/03/23 12:00:00 EST polyethylene glycol 3350, 17 gram = 1 EA, Powder-Recon, Oral, Daily, Routine, Start date 07/03/23 12:00:00 EST, 07/03/23 12:00:00 EST [facility] Hospital Care/Day Moderate 35 Minutes 81542 5. Other urethral stricture, female (N35.82: Other urethral stricture, female) Resulting in urinary retention. Patient is status post Robles catheter during this admission. Gets dilation of the ureter every 6 months. Urology consult pending. 6. On deep vein thrombosis (DVT) prophylaxis (Z79.899: Other halfway (current) drug therapy) Lovenox. Disposition: Pending echocardiogram, cardiology and urology consult. I discussed the diagnosis and plan of care with the patient at the bedside. Moderate level of MDM based on addressing above issues. This documentation was transcribed using voice recognition software. Several attempts were made to ensure accuracy. However inadvertent computerized sueding machine tender errors may be present. Nahid Serrato. Hospitalist. [...] deep vein thrombosis (DVT) prophylaxis (Z79.899: Other halfway (current) drug therapy) SCD, enoxaparin Orders: acetaminophen, [...] Extracted from: Title:ED Note Author:Yvette Vasquez, Layton Earl:07/03/23 1. Urinary hesitancy (R39.11 : Hesitancy of [...] PM Scheduled Provider:Micheline BROOKS MD Location:[facility] Appointment Type:URO Office Visit Future Scheduled Tests Laboratory* Basic Metabolic Panel 07/12/23 * Digoxin Level 07/12/23 [facility]11-22-2023 Evaluation + Plan noteExtracted from: Title:Procedure Note Heart & Vascular Author:Taylor GERMAN MD Date:07/05/23 Ordered: aspirin, 81 mg = 1 [...] PM Scheduled Provider:Micheline BROOKS MD Location:[facility] Appointment Type:URO Office Visit Future Scheduled Tests Laboratory* Basic Metabolic Panel 07/12/23 * Digoxin Level 07/12/23 [facility]11-22-2023 Hospital Discharge instructions Patient Education 07/05/2023 09:04:47 CV - Cardiovascular Discharge Instructions (Custom) [place], [place] CARDIOVASCULAR DISCHARGE INSTRUCTIONS Diet: Resume pre-procedure [...] hours post procedure: Actoplus MetGlucophageGlucophage XR GlucovanceAvandametFortamet Sno-omddzfjmkZvqelwLumv-tipdlfdez GlumetzaJanumetMetaglip RiometGlycomet *Minimal pain, soreness and/or discomfort [...] you are interested in smoking cessation, contact [facility] at [phone], ext. [phone]. In the event you are unable to reach your physician, please call Stephan at [phone] and the meat grading machine operator will assist you. Seek Immediate Medical Care for: Bleeding: Apply continuous pressure to the site and Call 911. Should the arm or leg become cold, numb, blue or white call your physician immediately. Signs of infection are redness, warmth, swelling, increased tenderness, colored drainage, fever or chills Chest pain Follow Up Care 07/02/2023 21:18:33 With:Taylor HENRIQUEZ Address: [address] [place] [phone]- [phone] Business (1) When:2 weeks Comments:Call for followup appointment With:Peggy Nazario Address: [address] [place] [address]- Business (1) When:07/10/2023 13:00:00 With:Micheline BROOKS Address: [facility] [address] [place] [address]- Business (1) When: Unknown Comments:Call for followup appointment re: the indwelling Robles catheter. [facility]11-20-2023 NoteFishGreater Baltimore Medical CenterComment on above:Result Comment: Electronically Signed By: Noman PATTON DO\.br\Date and Time Signed: 07/03/23 02:59 [id number] Hospital Discharge instructions Patient Education 07/01/2023 00:37:46 Abdominal Pain, Adult, Hlye-fu-Veff Abdominal Pain, Adult Many things can cause belly (abdominal) pain. Most times, belly pain is not dangerous. Many cases of belly pain can be watched and treated at home. Sometimes, though, belly pain is serious. Your doctor will try to find the cause of your belly pain. Follow these instructions at home: Medicines Take gobf-trh-akyztld and prescription medicines only as told by [...] your belly pain for any changes. Take rxag-omp-giegneu and prescription medicines only as told by [...] provider. Document Revised: 12/09/2019 Document Reviewed: 12/09/2019 [employer] Patient Education 2022 [employer]ida. Follow Up Care 06/30/2023 18:51:38 With:Peggy Nazario Address: [address] [place], [place] [phone] Business (1) When:07/04/2023 Comments:You can use the Bentyl, Zofran every 6 hours as needed for pain and nausea. Please follow-up with your primary care doctor next 2 to 3 days for further evaluation management. Please return to the ED for any new or worsening symptoms. [facility]11-17-2023 Evaluation + Plan noteExtracted from: Title:ED Note Author:Koby Masterson DO Date :06/30/23 Abdominal pain, acute (R10.9 : Unspecified abdominal pain) Orders: dicyclomine, 20 mg = 2 mL, Injection, IntraMuscular, Once, Stop date 06/30/23 20:58:00 EST, STAT, Start date 06/30/23 20:58:00 EST, 06/30/23 20:58:00 EST dicyclomine, 10 mg = 1 cap(s), Oral, QID, X 7 day(s), # 14 cap(s), Refills(s) 0, Pharmacy: [facility] #[id number], 165, cm, 06/30/23 19:37:00 EST, Height/Length Dosing, [...] q8hr, # 12 tab(s), Refills(s) 0, Pharmacy: [facility] #[id number], 165, cm, 06/30/23 19:37:00 EST, Height/Length Dosing, 55.7, kg, 06/30/23 19:37:00 EST, Weight Dosing Automated Diff Basic Metabolic Panel CBC w/ Auto Diff CT Abdomen/Pelvis w/o Contrast eGFR Extra Blue Tube Hepatic Function Panel Lipase Level UA With Cult Reflex Future Appointments Appointment Date:11/22/2023 01:00:00 PM Scheduled Provider:Micheline BROOKS MD Location:[facility] Appointment Type:URO Office Visit [facility]10-10-2023 Note [id number] Discharge instructions Patient [...] symptoms are. Treatment may include: Using an avpp-grx-otuhrfj vaginal lubricant before sex. Using a long-acting [...] Follow these instructions at home: Medicines Take muvj-khb-pyeysdu and prescription medicines only as told by your health care provider. Do not use herbal or alternative medicines unless your health care provider says that you can. Use kuak-fty-hjfnayx creams, lubricants, or moisturizers for dryness only [...] provider. Document Revised: 01/28/2021 Document Reviewed: 01/28/2021 [employer] Patient Education 2022 Emida. Follow Up Care 10/25/2022 10:34:06 With:CECILIA MCMAHON, Micheline Morgan, URL Address: [facility] [address] [place] [address]- When: Unknown [facility] 08-22-2023 Hospital Discharge instructions Patient Education 04/04/2023 [...] Follow these instructions at home: Medicines Take jiyx-zvu-hpdhzlz and prescription medicines only as told by [...] Watch your condition for any changes. Take ogjj-ptp-fwgtkds and prescription medicines only as told by [...] provider. Document Revised: 09/18/2020 Document Reviewed: 12/09/2019 [employer] Patient Education 2022 Emida. Follow Up Care 04/04/2023 13:51:29 With:Peggy Nazario Address: [address] [place] [phone] Business (1) When:04/07/2023 16:25:09 Comments:Call the office of [...] you develop any new or worsening symptoms. [facility]06-18-2023 Hospital Discharge instructions Patient Education 01/28/2023 23:28:19 RICE Therapy for Routine Care of Injuries, Jdfl-rz-Lqoj RICE Therapy for Routine Care of Injuries [...] provider. Document Revised: 05/20/2021 Document Reviewed: 05/20/2021 [employer] Patient Education 2022 [employer] 01/28/2023 23:28:19 Hand Contusion Hand Contusion [...] An elastic wrap to support your hand. Gwth-ife-mjbggdq medicines to control pain. Follow these instructions [...] sitting or lying down. General instructions Take ezho-bor-sgoixpa and prescription medicines only as told by [...] provider. Document Revised: 11/18/2021 Document Reviewed: 11/18/2021 [employer] Patient Education 2022 Emida. Follow Up Care 01/28/2023 21:23:51 With:Peggy Nazario Address: [place] [address] [place] (1) When:01/31/2023 Comments:Follow-up with your primary care provider in 3 to 5 days. If symptoms worsen, do not improve, or new symptoms arise please report back to emergency department for further evaluation. [facility]06-17-2023 Evaluation + Plan noteExtracted from: Title:ED Note Author:Med Medeiros PA-C te:01/28/23 Contusion of left hand (S60. 222A: Contusion of left hand, initial encounter) Orders: XR Hand 3+ Views Left Future Appointments Appointment Date:04/26/2023 03:15:00 PM Scheduled Provider:Micheline BROOKS MD Location:[facility] Appointment Type:URO Office Visit [facility]03-14-2023 Note [id number]:127[facility] 10-25-2022 Hospital Discharge instructions Patient Education 10/25/2022 [...] With:Micheline BROOKS Address: [facility] [address] [place] [address]- [facility] (1) When:04/27/2023 10:27:19 [facility]07-21-2022 Hospital Discharge instructions Patient Education 03/03/2022 [...] reconstructed. Follow these instructions at home: Take oaql-scj-gmynupc and prescription medicines only as told by [...] 08/26/2016 Document Revised: 03/13/2019 Document Reviewed: 03/13/2019 [employer] Patient Education 2020 Emida. Follow Up Care 02/28/2022 09:40:23 With:BLADIMIR PALMA, CARMINA Mcclelland, URL Address: [address] [place] [address] When: Unknown [facility] [place] 07-05-2022 Hospital Discharge instructions Patient Education 02/15/2022 14:03:18 Contusion, Hsmk-dc-Dgde Contusion A contusion is a deep bruise. [...] sitting or lying down. General instructions Take hxfv-prw-fpnjqry and prescription medicines only as told by [...] is also called RICE. Youmay be given nxbb-fxo-lmzialc medicines for pain. Contact a doctor if [...] 01/16/2009 Document Revised: 03/22/2019 Document Reviewed: 03/22/2019 [employer] Patient Education 2020 Emida. 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 Contact a doctor if: Your symptoms do [...] 07/31/2006 Document Revised: 11/20/2019 Document Reviewed: 10/06/2017 [employer] Patient Education 2020 [employer]ida. Follow Up Care 12/24/2021 17:34:06 With:Krysta Church Address: [address] [place] [address], [address] [place] [phone] Business (1) When:12/27/2021 18:21:21 With:Peggy Nazario Address: [address] [place] [phone]- Business (1) When:Within 3 Day(s) [facility] App[facility]ments Appointment Date:03/02/2022 02:00:00 PM Scheduled Provider:Micheline BROOKS MD Location:[facility] Appointment Type:URO Office Visit Future Scheduled Tests Laboratory* COVID-19 ([facility]) 08/12/21 [facility] Future Appointments Appointment Date:02/28/2022 09:30:00 AM Scheduled Provider:[facility]heta [facility] Type:Vascular New Patient (FT) Appointment Date:03/02/2022 02:00:00 PM Scheduled Provider:Micheline BROOKS MD Location:[facility] Appointment Type:URO Office Visit Future Scheduled Tests Laboratory* COVID-19 ([facility]) 08/12/21 [facility] App[facility]ments Appointment Date:04/04/2022 10:00:00 AM Scheduled Provider:Yennifer Iraheta MD [facility] Type:Vascular New Patient (FT) Future Scheduled Tests Laboratory* COVID-19 ([facility]) 08/12/21 [facility] Evaluation + Plan note Future Appointments Appointment Date:07/25/2022 09:15:00 AM Scheduled Provider:Yennifer Iraheta MD [facility] Type:Vascular Follow Up (FT) Appointment Date:09/26/2022 02:45:00 PM Scheduled Provider:Micheline BROOKS MD Location:[facility] Appointment Type:URO Office Visit Future Scheduled Tests Laboratory* COVID-19 ([facility]) 08/12/21 Radiology* US LE Venous Duplex Insufficiency Bilat 06/14/22 [facility] Future Appointments Appointment Date:07/25/2022 09:15:00 AM Scheduled Provider:Yennifer Iraheta MD [facility] Type:Vascular Follow Up (FT) Appointment Date:09/26/2022 02:45:00 PM Scheduled Provider:Micheline BROOKS MD Location:[facility] Appointment Type:URO Office Visit Future Scheduled Tests Laboratory* COVID-19 ([facility]) 08/12/21 [facility] Future Appointments Appointment Date:09/26/2022 02:45:00 PM Scheduled Provider:Micheline BROOKS MD Location:[facility] Appointment Type:URO [facility] Visit [facility] Future Appointments Appointment Date:12/05/2022 03:00:00 PM Scheduled Provider: Location:.[facility] Appointment Type:MA Screen (FT) Appointment Date:04/26/2023 03:15:00 PM Scheduled Provider:Micheline BROOKS MD Location:[facility] Appointment Type:URO Office Visit Future Scheduled Tests Radiology* MA Mamm Screen w/CAD if perf and 3D Zac 12/05/22 [facility] Future Appointments Appointment Date:04/26/2023 03:15:00 PM Scheduled Provider:Micheline BROOKS MD Location:[facility] [place] [facility] Appointment Type:URO [facility] Future Appointments Appointment Date:07/19/2023 03:00:00 PM Scheduled Provider:Micheline BROOKS MD Location:[facility] [place] Appointment Type:URO Office Visit Appointment Date:07/20/2023 10:30:00 AM Scheduled Provider:Taylor HENRIQUEZ [facility] Type:Cardiology Inpatient Follow Up (FT) Appointment Date:11/22/2023 01:00:00 PM Scheduled Provider:Micheline BROOKS MD [facility] Appoint[facility] Type:URO Office Visit Future Scheduled Tests Laboratory* Basic Metabolic Panel 07/12/23 * Digoxin Level 07/12/23 [facility] note* Diagnosis Anxiety Anxiety state, unspecified documented in this encounter [facility]* Diagnosis Gastroesophageal reflux disease without esophagitis Esophageal reflux documented in this encounter [facility]* Diagnosis Non-rheumatic mitral regurgitation- Primary Mitral valve disorders Chronic HFrEF (heart failure with reduced ejection fraction) (HCC) Nonrheumatic tricuspid valve regurgitation Tricuspid valve disorders, specified as nonrheumatic Non-ischemic cardiomyopathy (HCC) Other primary cardiomyopathies Persistent atrial fibrillation (HCC) Atrial fibrillation [facility] 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 Long-term (current) use of 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s History of cardioversion Personal history of surgery to heart and great vessels, presenting hazards to health Primary hypertension Unspecified essential hypertension [facility] Diagnosis Mitral valve insufficiency, unspecified etiology- Primary Anxiety Anxiety state, unspecified Paroxysmal atrial fibrillation (CMS/HCC) Atrial fibrillation Other cardiomyopathy (CMS/HCC) Hospital discharge follow-up Other follow-up examination Other thrombophilia (D68.69) Atherosclerosis of aorta (I70.0) Atherosclerosis of aorta documented in this encounter [facility]* Diagnosis Feeling of incomplete bladder emptying- Primary Incomplete bladder emptying Stricture of female urethra, unspecified stricture type Severe protein-calorie malnutrition (HCC) Other severe protein-calorie malnutrition [facility] Screening for genitourinary condition Screening for other and unspecified genitourinary condition [facility] Diagnosis Feeling of incomplete bladder emptying- Primary Incomplete bladder emptying Stricture of female urethra, unspecified stricture type Severe protein-calorie malnutrition (HCC) Other severe protein-calorie malnutrition [facility] Narrative No data available for this section [facility] Dis[facility] instructions No data available for this section [facility] No data available for this section [facility] for referral (narrative) , Mitral Valve and Tricuspid Valve Repair. Referred by: MARTINEZ MCMAHON, Taylor Patino [facility] for referral (narrative)* Outpatient Procedure (Routine) - Authorized Specialty Diagnoses / Procedures Referred By Marietta aguiar Referred To [facility] Diagnoses Non-rheumatic mitral regurgitation Persistent atrial fibrillation (HCC) Non-ischemic cardiomyopathy (HCC) Chronic HFrEF (heart failure with reduced ejection fraction) (HCC) Procedures ECG COMPLETE ECG ROUTINE ECG W/LEAST 12 LDS W/I&R Ana Rivas APRN.CNP [address] [place] [address] [facility] [place] [address] [facility] [place] [id number] Referral ID Status Reason Start Date Expiration Date Visits Requested Visits Authorized [id number] Authorized Auto-Generat ed Referral 11/08/2023 09/25/2024 1 1 * Transition of Care (Routine) - Ref Not Required Specialty Diagnoses / Procedures Referred By Marietta aguiar Referred To Contact Diagnoses Non-rheumatic mitral regurgitation Persistent atrial fibrillation (HCC) Non-ischemic cardiomyopathy (HCC) Chronic HFrEF (heart failure with reduced ejection fraction) (HCC) Procedures CARDIOVASCULAR MEDICINE OP FOLLOW UP APPT ORDER Ana Rivas APRN.CNP [address] [place] [address] Referral ID Status Reason Start Date Expiration Date Visits Requested Visits Authorized [id number] Ref Not Required PCP Requested Referral 09/26/2023 09/25/2024 1 1 * Outpatient Procedure (Routine) - Authorized Specialty Diagnoses / Procedures Referred By Contac t Referred To Contact [facility] [place] Diagnoses Non-rheumatic mitral regurgitation Persistent atrial fibrillation (HCC) Non-ischemic cardiomyopathy (HCC) Chronic HFrEF (heart failure with reduced ejection fraction) (HCC) Procedures ECG COMPLETE ECG ROUTINE ECG W/LEAST 12 LDS W/I&R Ana Rivas APRN.CNP [address] [place] [id number] [facility] [place] [address] [place] [address] Referral ID Status Reason Start Date Expiration Date Visits Requested Visits Authorized [id number] Authorized Auto-Generat ed Referral 10/25/2023 09/25/2024 1 1 * Transition of Care (Routine) - Ref Not Required Specialty Diagnoses / Procedures Referred By Contjenna t Referred To Contact Diagnoses Non-rheumatic mitral regurgitation Persistent atrial fibrillation (HCC) Non-ischemic cardiomyopathy (HCC) Chronic HFrEF (heart failure with reduced ejection fraction) (HCC) Procedures CARDIOVASCULAR MEDICINE OP FOLLOW UP APPT ORDER Ana Rivas APRN.CNP [address] [place] [id number] Referral ID Status Reason Start Date Expiration Date Visits Requested Visits Authorized [id number] Ref Not Required PCP Requested Referral 09/26/2023 09/25/2024 1 1 * Outpatient Procedure (Routine) - Authorized Specialty Diagnoses / Procedures Referred By Contac t Referred To Contact [facility] [place] Diagnoses Non-rheumatic mitral regurgitation Persistent atrial fibrillation (HCC) Non-ischemic cardiomyopathy (HCC) Chronic HFrEF (heart failure with reduced ejection fraction) (HCC) Procedures ECG COMPLETE ECG ROUTINE ECG W/LEAST 12 LDS W/I&R Ana Rivas APRN.CNP [address] [place] [address] [facility] [place] [address] [place] [address] Referral ID Status Reason Start Date Expiration Date Visits Requested Visits Authorized [id number] Authorized Auto-Generat ed Referral 10/10/2023 09/25/2024 1 1 * Transition of Care (Routine) - Ref Not Required Specialty Diagnoses / Procedures Referred By Marietta t Referred To Contact Diagnoses Non-rheumatic mitral regurgitation Persistent atrial fibrillation (HCC) Non-ischemic cardiomyopathy (HCC) Chronic HFrEF (heart failure with reduced ejection fraction) (HCC) Procedures CARDIOVASCULAR MEDICINE OP FOLLOW UP APPT Ana Leary APRN.CNP [address] [place] [address] Referral ID Status Reason Start Date Expiration Date Visits Requested Visits Authorized [id number] Ref Not Required PCP Requested Referral 09/26/2023 09/25/2024 1 1 [facility] for referral (narrative)* Consultation (Routine) - Pending Review Specialty Diagnoses / Procedures Referred By Marietta aguiar Referred To Contact Cardiothoracic Surgery Diagnoses Mitral valve insufficiency, unspecified etiology Procedures [place] OFFICE/OUTPATIENT [facility] 60 MINUTES [place] [address] [place] [address] Referral ID Status Reason Start Date Expiration Date Visits Requested Visits Authorized [id number] Pending Review Specialty Services Required 09/18/2023 03/16/2024 [...] for this section No Family History Records Found No data available for this section No Family History Records FoundNo Family History Records FoundNo Family History Records [...] section and content) DATE CREATED AUTHOR 08/23/2021 [facility] Me dical Specialist DATE CREATED AUTHOR AUTHOR'S ORGANIZ ATION 09/19/2023 [facility]ists EPIC DATE CREATED AUTHOR AUTHOR'S ORGANIZ ATION 10/13/2023 [facility] DATE CREATED AUTHOR AUTHOR'S ORGANIZ ATION 10/17/2023 [facility] DATE CREATED AUTHOR AUTHOR'S ORGANIZ ATION 10/17/[address] [facility] Care Team (unrecognized sect ion and content) Smt Operator Relationship Specialty Start Date End Date Peggy Nazario [address] [place] [address] PCP - General Family Medicine 07/24/23 Micheline Sorto MD [address] [place] [address] Surgeon Cardiac Surg 07/24/23 Taylor Henriquez MD [address] [facility] [place] [address] Manager Local Cardiology 07/24/23 Smt Operator Relationship Specialty Start Date End Date Peggy Nazario MD [address] [place] [address] PCP - ACO Reach 01/05/23 Peggy Nazario MD [address] [place] [address] PCP - General Family Medicine 02/08/23 Smt Operator Relationship Specialty Start Date End Date Peggy Nazario MD [address] [place] [address] PCP - ACO Reach 01/05/23 Peggy Nazario MD [address] [place] [address] PCP - General Family Medicine 02/08/23 Smt Operator Relationship Specialty Start Date End Date Peggy Nazario [address] [place] [address] PCP - General Family Medicine 07/24/23 Micheline Sorto MD [address] [place] [address] Surgeon Cardiac Surg 07/24/23 Taylor Henriquez MD [facility] [place] [address] Manager Local Cardiology 07/24/23 Alea Harley MD [address] [place] [address] Cardiology 07/28/23 Alea Harley MD [address] [place] [address] Primary Staff Physician Cardiology 08/23/23 Smt Operator Relationship Specialty Start Date End Date Peggy Nazario [address] [place] [address] PCP - General Family Medicine 07/24/23 Micheline Sorto MD [address] [place] [address] Surgeon Cardiac Surg 07/24/23 Taylor Henriquez MD [address] [place] [address] Manager Local Cardiology 07/24/23 Alea Harley MD [address] [place] [address] Cardiology 07/28/23 Alea Harley MD [address] [place] [address] Primary Staff Physician Cardiology 08/23/23 Smt Operator Relationship Specialty Start Date End Date Peggy Nazario [address] [place] [address] [place] [address] PCP - General Family Medicine 07/24/23 Micheline Sorto MD [address] [place] [address] Surgeon Cardiac Surg 07/24/23 Taylor Henriquez MD [address] [place] [address] Manager Local Cardiology 07/24/23 Alea Harley MD [address] [place] [address] Cardiology 07/28/23 Alea Harley MD [address] [place] [address] Primary Staff Physician Cardiology 08/23/23 Smt Operator Relationship Specialty Start Date End Date Peggy Nazario MD [address] [place] [address] PCP - ACO Reach 01/05/23 Peggy Nazario MD [address] [place] [address] PCP - General Family Medicine 02/08/23 Smt Operator Relationship Specialty Start Date End Date Peggy Nazario [address] [place] [address] PCP - General Family Medicine 07/24/23 Micheline Sorto MD [address] [place] [address] Surgeon Cardiac Surg 07/24/23 Taylor Henriquez MD [facility] [place] [address] Manager Local Cardiology 07/24/23 Alea Harley MD [address] [place] [address] Cardiology 07/28/23 Alea Harley MD [address] [place] [address] Primary Staff Physician Cardiology 08/23/23 Smt Operator Relationship Specialty Start Date End Date Peggy Nazario MD [address] [place] [address] PCP - ACO Reach 01/05/23 Peggy Nazario MD [address] [place] [address] PCP - General Family Medicine 02/08/23 Smt Operator Relationship Specialty Start Date End Date Peggy Nazario [address] [place] [address] PCP - General Family Medicine 07/24/23 Micheline Sorto MD [address] [place] [address] Surgeon Cardiac Surg 07/24/23 Taylor Henriquez MD [address] [place] [address] Manager Local Cardiology 07/24/23 Alea Harley MD [address] [place] [address] Cardiology 07/28/23 Alea Harley MD [address] [place] [address] Primary Staff Physician Cardiology 08/23/23 Smt Operator Relationship Specialty Start Date End Date Peggy Nazario [address] [place] [address] PCP - General Family Medicine 07/24/23 Micheline Sorto MD [address] [place] [address] Surgeon Cardiac Surg 07/24/23 Taylor Henriquez MD [address] [place] [address] Manager Local Cardiology 07/24/23 Alea Harley MD [address] [place] [address] Cardiology 07/28/23 Alea Harley MD [address] [place], [place] [id number] Primary Staff Physician Cardiology 08/23/23 Smt Operator Relationship Specialty Start Date End Date Peggy Nazario [place] [address] PCP - General Family Medicine 07/24/23 Micheline Sorto MD [address] [place] [id number] Surgeon Cardiac Surg 07/24/23 Taylor Henriquez MD [facility] [place] [address] Manager Local Cardiology 07/24/23 Alea Harley MD [address] [place] [address] Cardiology 07/28/23 Alea Harley MD [address] [place], [place] [address] Primary Staff Physician Cardiology 08/23/23 Source Comments (unrecognize d section and content) In the event this informatio n is protected by the Federal Confidentiality of Alcohol and Drug Abuse Patient Records regulations: The Federal rules restrict any use of the information to criminally investigate or prosecute any alcohol or drug abuse patient.[facility] the event this information is protected by the Federal Confidentiality of Alcohol and Drug Abuse Patient Records regulations: The Federal rules restrict any use of the information to criminally investigate or prosecute any alcohol or drug abuse patient.[facility] HospitalIn the event this information is protected by the Federal Confidentiality of Alcohol and Drug Abuse Patient Records regulations: The Federal rules restrict any use of the information to criminally investigate or prosecute any alcohol or drug abuse patient.[facility] HospitalIn the event this information is protected by the Federal Confidentiality of Alcohol and Drug Abuse Patient Records regulations: The Federal rules restrict any use of the information to criminally investigate or prosecute any alcohol or drug abuse patient.[facility] HospitalIn the event this information is protected by the Federal Confidentiality of Alcohol and Drug Abuse Patient Records regulations: The Federal rules restrict any use of the information to criminally investigate or prosecute any alcohol or drug abuse patient.[facility] HospitalIn the event this information is protected by the Federal Confidentiality of Alcohol and Drug Abuse Patient Records regulations: The Federal rules restrict any use of the information to criminally investigate or prosecute any alcohol or drug abuse patient.[facility] HospitalIn the event this information is protected by the Federal Confidentiality of Alcohol and Drug Abuse Patient Records regulations: The Federal rules restrict any use of the information to criminally investigate or prosecute any alcohol or drug abuse patient.[facility] HospitalIn the event this information is protected by the Federal Confidentiality of Alcohol and Drug Abuse Patient Records regulations: The Federal rules restrict any use of the information to criminally investigate or prosecute any alcohol or drug abuse patient.[facility] HospitalIn the event this information is protected by the Federal Confidentiality of Alcohol and Drug Abuse Patient Records regulations: The Federal rules restrict any use of the information to criminally investigate or prosecute any alcohol or drug abuse patient.[facility] HospitalIn the event this information is protected by the Federal Confidentiality of Alcohol and Drug Abuse Patient Records regulations: The Federal rules restrict any use of the information to criminally investigate or prosecute any alcohol or drug abuse patient.[facility] Reason for Visit (unrecogniz ed section and content) Reason Comments Insurance Inquiry Reason Comments Med Refill Reason Comments Medication Problem Reason Comments Follow Up Reason Comments Consult Reason Comments Results Reason Comments Cystoscopy-1 Reason Comments Patient Update Inactive Administered Medications - up to 3 most recent administrations Administered Medications (un recognized section and content) Medication Order MAR Action Action Date Dose Rate Site nitrofurantoin monohydrate and macrocrystal 100 mg cap(s) (MACROBID) 100 mg, ORAL, ONCE, 1 dose, On 10/15/23 at 2100, Swallow whole; DO NOT crush, chew, or open., Antimicrobial indication: Empiric Given 10/16/2023 8:28 AM EST 100 mg Oral FOR RECORDS PERTAINING TO PATIENTS WHO ARE [...] BE BASED ON THE PRIMARY CLINICAL RECORDS. [employer] provides no warranty or guarantee of the accuracy or completeness of information in this document.
--- NOTE | 2023-10-18 09:25 | US_ITS ---
[place] [id number] Patient Name: HARJIT ULLOA MRN: [id number] date: 1950 Sex: F Assigned Patient Location: CARD Current Patient Location: CARD Accession/Order Number: [id number] Exam Date: 10/18/2023 09:50 Report Date: 10/18/2023 11:26 At the request of: NON-STAFF PHYSICIAN Procedure: US carotid duplex BI EXAMINATION: US carotid duplex BI HISTORY: Dizziness R42 COMPARISON: No relevant comparison available. TECHNIQUE: Duplex Doppler ultrasound analysis of carotid and vertebral arteries. . Bilateral carotid arterial duplex examination was performed using B-mode, color flow and spectral analysis. Carotid stenosis is reported according to validated velocity parameters, similar to NASCET criteria. FINDINGS: RIGHT CAROTID ARTERY Mild plaque Subclavian: PSV: 118.1 cm/s cm/s EDV: 0.0 cm/s cm/s CCA: Prox: PSV: 88.9 cm/s cm/s EDV: 14.2 cm/s cm/s Mid: PSV: 74.6 cm/s cm/s EDV: 10.9 cm/s cm/s Distal: PSV: 54.8 cm/s cm/s EDV: 12.0 cm/s cm/s BULB: PSV: 49.0 cm/s cm/s EDV: 9.9 cm/s cm/s ICA: Prox: PSV: 61.8 cm/s cm/s EDV: 16.5 cm/s cm/s Mid: PSV: 112.1 cm/s cm/s EDV: 31.3 cm/s cm/s Distal: PSV: 104.3 cm/s cm/s EDV: 23.5 cm/s cm/s ECA: PSV: 86.6 cm/s cm/s EDV: 3.8 cm/s cm/s VERTEBRAL: PSV: 90.5 cm/s cm/s EDV: 11.5 cm/s cm/s, antegrade ICA/CCA ratio: PSV: 2.0 EDV: 2.6 LEFT CAROTID ARTERY Mild Plaque Subclavian: PSV: 42.7 cm/s cm/s EDV: 0.0 cm/s CCA: Prox: PSV: 98.4 cm/s cm/s EDV: 15.6 cm/s Mid: PSV: 108.2 cm/s cm/s EDV: 13.7 cm/s Distal: PSV: 84.9 cm/s cm/s EDV: 13.7 cm/s BULB: PSV: 44.8 cm/s cm/s EDV: 8.5 cm/s ICA: Prox: PSV: 59.0 cm/s cm/s EDV: 15.4 cm/s Mid: PSV: 99.1 cm/s cm/s EDV: 28.0 cm/s Distal: PSV: 90.1 cm/s cm/s EDV: 22.8 cm/s ECA: PSV: 84.9 cm/s cm/s EDV: 4.7 cm/s VERTEBRAL: PSV: 75.8 cm/s cm/s EDV: 13.7 cm/s , antegrade ICA/CCA ratio: PSV: 1.2 EDV: 2.0 US/US carotid duplex BI IMPRESSION: 0-49% flow stenosis bilateral internal carotid arteries Spectral Doppler US Thresholds (Reference: Jonathan EG, et al. Radiology 2000; 214:247-252) Stenosis (%) PSV (cm/sec) VICA/VCCA 0-49 <150 <2.5 50-69 150-225 2.5-4.0 >70 >225 >4.0 Electronically authenticated by: LEXA DYSON Date: 10/18/2023 11:26
--- NOTE | 2023-10-18 09:27 | RT_ITS ---
[facility] Test Date: 2023-10-18 Pat Name: HARJIT ULLOA Department: Room: - Gender: Female Bow Rehairer: Dave Arreola RRT : 1950 Requested By: [id number] Order Number: [id number] Reading MD: Barrington Rosa Interpretive Statements Spirometry was completed according to ATS criteria. Findings were considered accurate and reproducible. No bronchodilator, lung volumes, or diffusion capacity were ordered. Spirometry: -FEV1/FVC: Low normal @ 73% -FEV1: Normal @ 88% -FVC: Normal @ 91% Flow-volume loop: -Mild obstructive pattern Impressions: -Spirometry trends towards a mild obstruction pattern. Consider full PFT depending on clinical status. Clinical correlation required. Electronically Signed On 10-18-2023 18:26:31 EST by Barrington Rosa
== END 2023-10-18 08:51 | disposition home or self-care (01) ==
LOC: CARD 08:50
PROVIDERS: PCP Family Medicine
DX: R06.02 Shortness of breath (principal); R42 Dizziness and giddiness
CPT/HCPCS: 93880; 94010

== ENCOUNTER 2023-11-13 14:08 | Outpatient (OUT) | payer MEDICARE, BC, SELFPAY ==
[2023-11-13 14:31] LABS: Anion Gap 9.2; BUN Creatinine Ratio 23.4; Calcium 8.8 mg/dL (8.5-10.1); Carbon Dioxide 30.2 mmol/L (21.0-32.0); Chloride 101 mmol/L (98-107); Estimated GFR (African America >60 (>=60); Estimated GFR (Non-African Ame 58 (>=60); Glucose 95 mg/dL (74-106); Potassium 4.4 mmol/L (3.5-5.1); Sodium 136 mmol/L (136-145)
== END 2023-11-13 14:09 | disposition home or self-care (01) ==
LOC: LAB 14:10
PROVIDERS: PCP Student in an Organized Health Care Education/Training Program; Visit Provider Internal Medicine Interventional Cardiology
DX: I50.22 Chronic systolic (congestive) heart failure (principal)
CPT/HCPCS: 36415; 80048

== ENCOUNTER 2023-12-13 10:14 | Outpatient (OUT) | payer MEDICARE, BC, SELFPAY ==
[2023-12-13 11:34] LABS: Anion Gap 10.7; BUN Creatinine Ratio 22.3; Calcium 9.2 mg/dL (8.5-10.1); Carbon Dioxide 29.4 mmol/L (21.0-32.0); Chloride 103 mmol/L (98-107); Estimated GFR (African America >60 (>=60); Estimated GFR (Non-African Ame 58 (>=60); Glucose 118 mg/dL (74-106); Potassium 4.1 mmol/L (3.5-5.1); Sodium 139 mmol/L (136-145)
== END 2023-12-13 10:15 | disposition home or self-care (01) ==
LOC: LAB 10:17
PROVIDERS: PCP Student in an Organized Health Care Education/Training Program; Visit Provider Internal Medicine Interventional Cardiology
DX: I10 Essential (primary) hypertension (principal)
CPT/HCPCS: 36415; 80048

== ENCOUNTER 2024-05-09 14:37 | Outpatient (OUT) | payer MEDICARE, BC, SELFPAY ==
--- NOTE | 2024-05-09 14:46 | CA_ITS ---
Patient Name: HARJIT ULLOA MR#: [id number] : 1950 Exam Date: 05/09/2024 Ordering Doctor: DR NEREYDA ROBINS M.D. ECHOCARDIOGRAM REPORT PROCEDURE: CA ECHO DOPPLER COMPLETE INDICATIONS: Aortic valve stenosis, Atrial fibrillation COMPARISON: None. DESCRIPTION: COMPLETE ECHOCARDIOGRAM Real-time transthoracic echocardiography with 2D, M-mode, spectral and color flow Doppler performed. QUALITY: Technical quality was good. LEFT VENTRICLE: Normal chamber size. Normal left ventricular wall thickness. Systolic function is moderately reduced. LV EF: Moderately reduced left ventricular ejection fraction, (35-40%). DIASTOLIC: Not adequately assessed due to heart rhythm. ATRIAL SEPTUM: LEFT ATRIUM: Severe dilatation. RIGHT ATRIUM: Severe dilatation. RIGHT VENTRICLE: Normal chamber size. Normal right ventricular systolic function. Pacer wire present. TRICUSPID VALVE: Normal mobility and thickness. No stenosis with moderate to severe regurgitation. Moderate pulmonary hypertension. RVSP 49 mmHg MITRAL VALVE: Normal mobility and thickness. No evidence of mitral valve stenosis. There is no mitral annular calcification. Moderate to severe mitral regurgitation. AORTIC VALVE: Thickened aortic valve. Normal leaflet mobility. No aortic stenosis. Trace aortic regurgitation. AORTIC ROOT: Normal diameter and appearance. PULMONIC VALVE: Normal thickness and mobility. No stenosis. Mild regurgitation. PERICARDIUM: No evidence of pericardial effusion. IVC: Normal in size with no collapse. PLEURA: CONCLUSION: 1. Normal left ventricular size. Systolic function is moderately reduced. LVEF is estimated at 35 to 40%. 2. Normal right ventricular size and systolic function. 3. Severe biatrial dilatation. 4. Moderate mitral regurgitation. 5. Moderate to severe tricuspid regurgitation. 6. Moderately elevated right-sided pressures. RVSP is 49 mmHg. Adult Echocardiography Procedure Report Left Ventricle LVEDD (3.7 - 5.6 cm): 5.03 cm LVESD (2.2 - 4.0 cm): 3.90 cm LVIVS thickness (0.6 - 1.2 cm): 0.78 cm LVPW thickness (0.5 - 1.0 cm): 0.72 cm e': 0.11 m/s E - e': 9.11 LVOT Max Gradient: 0.98 mm[Hg] LVOT Area (cm2): 0.49 m/s Peak Velocity (LVOT): 0.49 m/s Mean Velocity (LVOT): 0.33 m/s LVOT Diameter 2.09 cm Left Ventricular Ejection Fraction: 35-40 % Left Atrium LA Volume Index (2D A2C): 56.74 ml/m2 Left Atrium Systolic Dimension: 3.74 cm Mitral Valve Mitral Valve E-Wave Peak Velocity: 1.01 m/s Right Ventricle RV Internal Diastolic Dimension: 3.51 cm Aorta AO Root Diam: 2.73 cm Ascending Ao Diam: 2.72 cm Aortic Valve AoV Area (Peak Tom): 1.37 cm2, 1.33 cm2 AoV Area (VTI): 1.23 cm2, 1.18 cm2 Peak Velocity(Antegrade Flow): 1.27 m/s, 1.19 m/s Peak Gradient(Antegrade Flow): 6.41 mm[Hg], 5.69 mm[Hg] Mean Velocity(Antegrade Flow): 0.91 m/s, 0.84 m/s Mean Gradient(Antegrade Flow): 3.74 mm[Hg], 3.21 mm[Hg] Velocity Time Integral: 25.98 cm, 23.96 cm Tricuspid Valve Peak Velocity (Regurgitant Flow): 2.86 m/s, 3.21 m/s, 2.92 m/s Pulmonic Valve Mean Gradient: 1.46 mm[Hg] Mean Velocity: 0.55 m/s Peak Velocity: 0.89 m/s, 0.72 m/s Peak Gradient: 2.07 mm[Hg], 3.17 mm[Hg] Right Atrium Right Atrium Systolic Pressure: 106.95 ml, 106.95 ml Dictated by: Nereyda Robins M.D. on 05/09/2024 at 17:39 Approved by: Nereyda Robins M.D. on 05/09/2024 at 18:14
== END 2024-05-09 14:38 | disposition home or self-care (01) ==
LOC: CARD 14:38
PROVIDERS: PCP Student in an Organized Health Care Education/Training Program; Visit Provider Internal Medicine Interventional Cardiology
DX: I08.0 Rheumatic disorders of both mitral and aortic valves (principal); I48.0 Paroxysmal atrial fibrillation
CPT/HCPCS: 93306

== ENCOUNTER 2024-06-01 09:54 | Emergency (ER) | payer MEDICARE, BC, SELFPAY ==
[2024-06-01 10:02] VITALS: BP 134/71; PULSE 75; TEMP 36.8; O2SAT 100
[2024-06-01 11:03] LABS: Bilirubin Urine NEGATIVE (NEGATIVE); Blood Urine TRACE-I (NEGATIVE); Clarity Urine CLEAR (CLEAR); Color Urine LT. YELLOW (YELLOW); Glucose Urine UA NEGATIVE (NEGATIVE); Ketones Urine NEGATIVE (NEGATIVE); Leukocyte Esterase Urine NEGATIVE (NEGATIVE); Nitrite Urine NEGATIVE (NEGATIVE); Protein Urine NEGATIVE (NEG/TRACE); Specific Gravity Urine <=1.005 (1.005-1.025); Urobilinogen Urine 0.2 EU/dL (0.2-1.0)
[2024-06-01 11:06] LABS: Urine Microscopic Indicated YES
[2024-06-01 11:11] LABS: Bacteria Urine TRACE #/HPF (NONE SEEN); Cast Seen? NONE SEEN #/LPF (NONE SEEN); Crystals Seen? None Seen #/HPF (None Seen); Mucus Urine NONE SEEN (NONE SEEN); RBC Urine 0-2 #/HPF (0-2); Squamous Epithelial Cell Urine RARE #/LPF (NONE/RARE); Urine Culture Indicated NO; WBC Urine NONE SEEN #/HPF (NONE SEEN)
--- OUTSIDE RECORDS SUMMARY | 2024-06-01 11:18 | XMS_ITS | CCD ---
Author Organization [facility] Care Team Providers Care Rural Carrier Associate Name Role Phone Peggy Nazario Primary Care Physician Micheline Sorto MD Unavailable Taylor Henriquez MD Unavailable Peggy Nazario Primary Care Provider Peggy Nazario MD Unavailable Peggy Nazario MD Primary Care Provider Alea Harley MD Unavailable Alea Harley MD Unavailable [phone] Hannah Brian Primary Care Physician Micheline BROOKS Referring Unavailable Micheline BROOKS Attending Unavailable Micheline BROOKS Attending Unavailable Micheline BROOKS Attending Unavailable Micheline BROOKS Referring Unavailable Parveen Ayers Attending Unavailable Layton Crawford Attending Unavailable Jeff Cross Attending Unavailable Koby Masterson Attending Unavailable Jeff Cross Attending Unavailable Taylor HENRIQUEZ Attending Unavailable NONE, XXXX Referring Unavailable Taylor HENRIQUEZ Admitting Unavailable Taylor HENRIQUEZ Referring Unavailable Taylor HENRIQUEZ Attending Unavailable Taylor HENRIQUEZ Consulting Unavailable Taylor HENRIQUEZ Admitting Unavailable Taylor HENRIQUEZ Consulting Unavailable Taylor HENRIQUEZ Consulting Unavailable Micheline BROOKS Referring Unavailable Micheline BROOKS Attending Unavailable Micheline BROOKS Admitting Unavailable MD Hannah Brian Referring Unavailable MD Hannah Brian Attending Unavailable MD Hannah Brian Admitting Unavailable Peggy Nazario Admitting Unavailable Peggy Nazario Referring Unavailable Peggy Nazario Attending Unavailable Eb Goff Consulting Unavaila Nahid Read Attending Unavailable Noman PATTON Admitting Unavailable Eb Goff Consulting Unavaila Eb Spangler. Consulting Unavaila ble [facility] Cardio, XXXX Consulting Unavailable Parveen Ayers Attending Unavailable Koby Masterson Attending Unavailable Jayson Calloway Attending Unavailable Peggy Nazario Primary Care Provider PEGGY NAZARIO Attending Unavailable NAZARIO, PEGGY Mcmillan Attending Unavailable CRUZ COVINGTON Attending Unavailable NAZARIO, PEGGY Mcmillan Attending Unavailable SNEHAL, HANNAH De Leon Attending Unavailable SNEHAL, HANNAH De Leon Attending Unavailable NAZARIO, PEGGY Mcmillan Attending Unavailable SNEHAL, HANNAH De Leon Attending Unavailable SNEHAL, HANNAH De Leon Attending Unavailable FÁTIMALAWRENCE CAMPOS Attending Unavailable SNEHAL, HANNAH De Leon Attending Unavailable NAZARIO, PEGGY Mcmillan Attending Unavailable SNEHAL, HANNAH De Leon Attending Unavailable STEPHAN BOO Attending Unavailable NAZARIOPEGGYLAS Primary Care Unavailabl e NITHYA, MICHELINE Referring Unavailable YECENIA GLEZ Attending Unavailable YECENIA GLEZ Admitting Unavailable NAZARIO, PEGGY JOHN Primary Care Unavailabl e NITHYA, MICHELINE Referring Unavailable NAZARIO, [facility] Primary Care Unavailabl e NAZARIO, [facility] Primary Care Unavailabl e NITHYA, MICHELINE Referring Unavailable NAZARIO, [facility] Primary Care Unavailabl e NITHYA, MICHELINE Referring Unavailable ALEA HARLEY Attending Unavailable NITHYA, MICHELINE Referring Unavailable PEGGY NAZARIO JOHN Primary Care Unavailabl PRIETO Rodriguez Attending Unavailable NITHYA, MICHELINE Referring Unavailable NAZARIO, [facility] Primary Care Unavailabl e NAZARIO, [facility] Primary Care Unavailabl e NITHYA, MICHELINE Referring Unavailable NITHYA, MICHELINE Attending Unavailable NAZARIOPEGGY JOHN Primary Care Unavailabl e NAZARIO, [facility] Primary Care Unavailabl e ALEA HARLEY Referring Unavailable LE PANIAGUA Attending Unavailable AMINA PETERSEN Admitting Unavailable ANA RIVAS Attending Unavailable PEGGY NAZARIOLAS Primary Care Unavailabl e ALEA HARLEY Referring Unavailable NAZARIO, PEGGY JOHN Primary Care Unavailabl e ALEA HARLEY Referring Unavailable NAZARIO, [facility] Primary Care Unavailabl e RAPHAEL GOLDSMITH Attending Unavailable VASAVADA, RAPHAEL P Referring Unavailable PEGGY NAZARIO Primary Care Unavailabl e SELF Referring Unavailable VASAVADA, RAPHAEL P Attending Unavailable PEGGY NAZARIO Primary Care Unavailabl e SELF Referring Unavailable VASAVADA, RAPHAEL P Attending Unavailable KC, VÍCTOR Referring Unavailable KC, VÍCTOR Referring Unavailable MOUKARBEL, NEREYDA Referring Unavailable MAXIMILIAN, PATTY Referring Unavailable MOUKARBEL, NEREYDA Attending Unavailable MAXIMILIAN, PATTY Referring Unavailable DEISY, FELICIA Attending Unavailable MAXIMILIAN, PATTY Admitting Unavailable MAXIMILIAN, PATTY Attending Unavailable MOUKARBEL, NEREYDA Attending Unavailable DERISO, KASI Attending Unavailable MOUKARBEL, NEREYDA Attending Unavailable MAXIMILIAN, PATTY Attending Unavailable MAXIMILIAN, PATTY Attending Unavailable MOUKARBEL, NEREYDA Attending Unavailable MAXIMILIAN, PATTY Referring Unavailable MAXIMILIAN, PATTY Referring Unavailable MOUKARBEL, NEREYDA Referring Unavailable KC, VÍCTOR Referring Unavailable Allergies Allergy Classification Reported Allergen(s) Allergy Type Date of Onset Reaction(s) Facility (20 sources) Cephalexin; Translations: [cephalexin] Drug Allergy 3 GI intolerance, Unknown [facility] (20 sources) Egg; Translations: [Eggs] Food allergy Unknown (qualifier value) [facility] (20 sources) Meperidine; Translations: [meperidine] Drug Allergy 0 Syncope (disorder), Other: See Comments [facility] (20 sources) Morphine; Translations: [morphine] Drug Allergy 3 Unknown [facility] (20 sources) Sulfonamides (Antibiotic); Translations: [sulfa drugs] Drug allergy Nausea [facility] (2 sources) Aspirin; Translations: [ASPIRIN] Drug Allergy 0 Other: See Comments [facility] (9 sources) Latex; Translations: [LATEX] Drug Intolerance 3 Rash, Hives [facility] (5 sources) Aluminum aspirin Drug Allergy 0 [facility] (6 sources) Amoxicillin; Translations: [AMOXICILLIN] Drug Allergy 3 Diarrhea [facility] (6 sources) Erythromycin; Translations: [ERYTHROMYCIN] Drug Allergy 3 Unknown [facility] (5 sources) Latex Propensity to adverse reactions 3 Hives, Rash [facility] (5 sources) Meperidine Drug Allergy 3 Unknown [facility] (18 sources) Sulfonamides (Antibiotic) Drug Allergy 3 GI intolerance, Intolerance [facility] (6 sources) WHEAT DEXTRIN; Translations: [WHEAT BRAN] Drug Allergy 3 [facility] (5 sources) WHEAT DEXTRIN Drug Allergy 3 [facility] (5 sources) Eggs Or Egg-Derived Products Drug Allergy 3 [facility] (14 sources) egg extract; Translations: [EGG] Drug Allergy 4 Intolerance, GI Upset [facility] (1 source) Meperidine; Translations: [Demerol HCl] Drug Allergy [facility] Rep[facility] (2 sources) Sulfonamides (Antibiotic); Translations: [SULFA (SULFONAMIDE ANTIBIOTICS)] Propensity to adverse reactions to drug (disorder) 3 [facility] Repository (1 source) Amiodarone; Translations: [AMIODARONE] Drug Allergy 4 [facility] Repository (1 source) empagliflozin; Translations: [EMPAGLIFLOZIN] Drug Allergy 4 [facility] Repository (1 source) valsartan; Translations: [VALSARTAN] Drug Allergy 4 [facility] Rep[facility] (1 source) EGG DERIVED; Translations: [EGG DERIVED] Propensity to adverse reactions to drug (disorder) 3 [facility] Repository (1 source) ALLERGIES NOT ON FILE; Translations: [ALLERGIES NOT ON FILE] Propensity to adverse reactions (disorder) [facility] Repository Medications Current Medications Medication Drug Class(es) Dates Sig (Normalized) Sig (Original) amoxicillin 500 mg / clavulanate 125 mg oral tablet (2 sources) Penicillin-class Antibacterial Start: 07-19-2023 End: 08-02-2023 Augmentin 500 mg-125 mg Tab 1 tab(s), Oral, q24hr for 14 day(s), 14 tab(s), Refill(s) 0, [facility] #[id number], 165, cm, 07/19/23 15:21:00 EST, Height/Length Dosing, 54.4, kg, 07/19/23 15:21:00 EST, Weight Dosing Start Date: 07/19/23 Stop Date: 08/02/23 Status: Ordered apixaban 5 mg oral tablet (20 sources) Factor Xa Inhibitor Start: 07-11-2023 End: 08-31-2023 take 1 tablet by mouth twice daily apixaban (ELIQUIS) 5 mg tab(s) Take 1 tablet by mouth two times a day. 120 tablet 1 08/31/2023 Active Start: 07-11-2023 take 1 tablet by antonio twice daily Eliquis 5 mg oral tablet 5 mg = 1 tab(s), Oral, BID, # 60 tab(s), Refills(s) 0, Pharmacy: [facility] #[id number], 165, cm, 07/02/23 21:30:00 EST, Height/Length Dosing, 55.7, kg, 07/02/23 21:30:00 EST, Weight Dosing Start Date: 07/11/23 Status: Ordered Start: 07-11-2023 take 1 tablet by antonio twice daily Eliquis 5 mg oral tablet 5 mg = 1 tab(s), Oral, BID, # 60 tab(s), Refills(s) 0, Pharmacy: [facility] #[id number], 165, cm, 07/02/23 21:30:00 EST, Height/Length Dosing, 55.7, kg, 07/02/23 21:30:00 EST, Weight Dosing Start Date: 07/11/23 Status: Ordered Start: 07-11-2023 take 1 tablet by antonio twice daily Eliquis 5 mg oral tablet 5 mg = 1 tab(s), Oral, BID, # 60 tab(s), Refills(s) 0, Pharmacy: [facility] #[id number], 165, cm, 07/02/23 21:30:00 EST, Height/Length Dosing, 55.7, kg, 07/02/23 21:30:00 EST, Weight Dosing Start Date: 07/11/23 Status: Ordered Comment on above: Take 1 tablet by antonio th two times a day. Take 5 mg by mouth t wo times a day. aspirin 81 mg delayed release oral tablet (11 sources) Platelet Aggregation Inhibitor, Nonsteroidal Anti-inflammatory Drug Start: 07-05-20 End: 08-31-19 24 take 1 tablet by mouth once daily aspirin 81 mg Oral EC Tab 81 mg = 1 tab(s), Oral, Daily, # 60 tab(s), Refills(s) 0, Pharmacy: [facility] #[id number], 165, cm, 07/02/23 21:30:00 EST, Height/Length Dosing, 55.7, kg, 07/02/23 21:30:00 EST, Weight Dosing Start Date: 07/05/23 Status: Ordered Comment on above: Take 81 mg by mouth once daily. atorvastatin 40 mg oral tablet (20 sources) HMG-CoA Reductase Inhibitor Start: 07-05-20 End: 08-25-19 take 1 tablet by mouth once daily at bedtime atorvastatin (LIPITOR) 40 mg tablet Take 1 tablet by mouth daily at bedtime. 180 tablet 1 08/31/2023 08/25/2024 Active Comment on above: Take 1 tablet by antonio th daily at bedtime. Take 40 mg by mouth once daily. carvedilol 12.5 mg oral tablet (20 sources) alpha-Adrenergic Yolette, beta-Adrenergic Yolette Start: 08-31-19 take 1 tablet by mouth twice daily at mealtime carvedilol (COREG) 12.5 mg tablet Take 1 tablet by mouth two times a day with meals. 180 tablet 1 08/31/2023 Active Start: 07-05-2023 End: 08-31-2023 take 1 tablet by mouth twice daily carvedilol 3.125 mg Tab 3.125 mg = 1 tab(s), Oral, BID, # 120 tab(s), Refills(s) 0, Pharmacy: [facility] #[id number], 165, cm, 07/02/23 21:30:00 EST, Height/Length Dosing, 55.7, kg, 07/02/23 21:30:00 EST, Weight Dosing Start Date: 07/05/23 Status: Ordered Start: 07-05-2023 End: 10-19-2023 take 1 tablet by mouth twice daily carvedilol 3.125 mg Tab 3.125 mg = 1 tab(s), Oral, BID, X 14 day(s), # 28 tab(s), Refills(s) 0, Pharmacy: [facility] #[id number], 165, cm, 10/05/23 18:07:00 EST, Height/Length Dosing, 50.3, kg, 10/05/23 18:07:00 EST, Weight Dosing Start Date: 10/05/23 Stop Date: 10/19/23 Status: Ordered take 1 tablet by antonio th twice daily at mealtime carvedilol (COREG) 6.25 mg tablet Take 6.25 mg by mouth two times a day with meals. Active Comment on above: Take 1 tablet by antonio th two times a day with meals. Take 12.5 mg by mout h. Take 3.125 mg by antonio th two times a day with meals. dicyclomine hydrochloride 10 mg oral capsule (1 source) Anticholinergic Start: 07-01-20 End: 07-08-20 take 1 capsule by mouth four times daily Bentyl 10 mg Cap 10 mg = 1 cap(s), Oral, QID, X 7 day(s), # 14 cap(s), Refills(s) 0, Pharmacy: [facility] #[id number], 165, cm, 06/30/23 19:37:00 EST, Height/Length Dosing, [...] Systolic congestive heart failure, unspecified HF chronicity (CMS/[facility]) Take 0.5 tablets (62.5 mcg) by mouth in the morning. Take 1/2 a tab daily. 45 tablet 0 09/06/2023 12/05/2023 Active Start: 08-31-2023 digoxin (LANOX IN) 125 mcg (0.125 mg) tablet Take HALF tablet by mouth daily (not one complete tablet) 30 tablet 1 08/31/2023 Active Start: 07-05-2023 End: 08-31-2023 take 1 tablet by mouth once daily digoxin (LANOXIN) 125 mcg (0.125 mg) tablet Take 125 mcg by mouth once daily. 0 07/05/2023 08/31/2023 Discontinued Start: 07-05-2023 take 1 tablet by antonio th once daily digoxin 125 mcg (0.125 mg) Tab 125 mcg = 1 tab(s), Oral, Daily, # 60 tab(s), Refills(s) 0, Pharmacy: [facility] #[id number], 165, cm, 07/02/23 21:30:00 EST, Height/Length Dosing, 55.7, kg, 07/02/23 21:30:00 EST, Weight Dosing Start Date: 07/05/23 Status: Ordered Comment on above: Take HALF tablet by mouth daily (not one complete tablet) Take 125 mcg by mout h once daily. estradiol 0.1 mg/ml vaginal cream (13 sources) Estrogen Start: 04-26-2023 Estrace 0.1 mg/g Cream 0.5 gm, Vaginal, MonFri, 42.5 gm, Refill(s) 6 Start Date: 04/26/23 Status: Ordered Start: 03-20-2023 Estrace 0.1 mg /g Cream 1 gm, Vaginal, Once a day (at bedtime), 42.5 gm, Refill(s) 6, [facility], 165.1, cm, 01/28/23 21:34:00 EDT, Height/Length Dosing, 54.5, kg, 01/28/23 21:34:00 EDT, Weight Dosing Start Date: 03/20/23 Status: Ordered Start: 03-03-2022 estradiol 0.1 mg/g vaginal cream 1 gm, Vaginal, MonFri, # 42.5 gm, Refills(s) 6, Pharmacy: [facility], 165, cm, 03/03/22 10:04:00 EDT, Height/Length Dosing, 54, kg, 03/03/22 10:04:00 EDT, Weight Dosing Start Date: 03/03/22 Status: Ordered Start: 02-26-2021 End: 08-28-2023 estradiol (ESTRACE) 0.01 % ( 0.1 mg/gram) vaginal cream Use 1 g vaginally. 0 02/26/2021 08/28/2023 Discontinued (Course of therapy completed) Start: 02-26-2021 estradiol 0.1 mg/g vaginal cream 1 gm, Vaginal, MonFri, # 42.5 gm, Refills(s) 6, Pharmacy: [facility], 165, cm, 02/23/21 13:24:00 EDT, Height/Length Dosing, 54, kg, 02/23/21 13:24:00 EDT, Weight Dosing Start Date: 02/26/21 Status: Ordered Start: 10-22-2012 End: 08-28-2023 estradiol 0.01 % (0.1 mg/g) vaginal cream Use a pea sized drop on finger, once every other day 1 Tube 11 10/22/2012 08/28/2023 Discontinued (Course of therapy completed) Comment on above: Use a pea sized drop on finger, once every other day Use 1 g vaginally. estradiol 0.1 mg/g vaginal cream (9 sources) Start: 03-03-2022 estradiol 0.1 mg/g vaginal cream 1 gm, Vaginal, MonFri, # 42.5 gm, Refills(s) 6, Pharmacy: [facility], 165, cm, 03/03/22 10:04:00 EDT, Height/Length Dosing, 54, kg, 03/03/22 10:04:00 EDT, Weight Dosing Start Date: 03/03/22 Status: Ordered Start: 02-26-2021 estradiol 0.1 mg/g vaginal cream 1 gm, Vaginal, MonFri, # 42.5 gm, Refills(s) 6, Pharmacy: [facility], 165, cm, 02/23/21 13:24:00 EDT, Height/Length Dosing, 54, kg, 02/23/21 13:24:00 EDT, Weight Dosing Start Date: 02/26/21 Status: Ordered furosemide 40 mg oral tablet (11 sources) Loop Diuretic Start: 07-05-2023 End: 08-31-2023 take 1 tablet by mouth once daily furosemide 40 mg Tab 40 mg = 1 tab(s), Oral, Daily, # 60 tab(s), Refills(s) 0, [id number], 165, cm, 07/02/23 21:30:00 EST, Height/Length Dosing, 55.7, kg, 07/02/23 21:30:00 EST, Weight Dosing Start Date: 07/05/23 Status: Ordered Comment on above: Take 40 mg by mouth once daily. lactulose 667 mg/ml oral solution (1 source) Osmotic Laxative Start: 11-22-2023 End: 11-27-2023 take 13.333 g by mouth once daily lactulose 10 g/15 mL Oral Syrup 13.333 gm = 20 mL, Oral, Daily, X 5 day(s), # 100 mL, Refills(s) 0, Pharmacy: [facility] #[id number], 165, cm, 11/22/23 16:28:00 EDT, Height/Length Dosing, 49.8, kg, 11/22/23 16:28:00 EDT, Weight Dosing Start Date: 11/22/23 Stop Date: 11/27/23 Status: Ordered lisinopril 10 mg oral tablet (10 sources) Angiotensin Converting Enzyme Inhibitor Start: 09-26-2023 End: 12-25-2023 take 0.5 tablet by mouth once daily lisinopril (ZESTRIL) 10 mg tablet Indications: Non-rheumatic mitral regurgitation , Persistent atrial fibrillation (HCC) , Non-ischemic cardiomyopathy (HCC) , Chronic HFrEF (heart failure with reduced ejection fraction) (HCC) take 1/2 tablet by mouth once daily 45 tablet 12/22/2023 Active Comment on above: Take 0.5 tablets by mouth once daily. LORazepam 1 mg oral tablet (20 sources) Benzodiazepine Start: 07-10-2023 End: 09-15-2023 LORazepam 1 mg Tab Refills(s) 0 Start Date: 07/19/23 Status: Ordered Start: 08-03-2011 End: 08-28-2023 LORazepam (ATIVAN) 0.5 mg Ta ke 0.5 mg by mouth. 0 08/03/2011 08/28/2023 Discontinued (Patient chooses alternative therapy) Start: 12-14-2005 End: 08-28-2023 ATIVAN 0.5 MG TAB Take one(1 ) tablet two(2) times daily. 0 12/14/2005 08/28/2023 Discontinued (Patient chooses alternative therapy) Comment on above: Take one(1) tablet t wo(2) times daily. Take 1 mg by mouth e very 6 hours as needed for anxiety. Take 0.5 mg by mouth . losartan potassium 25 mg oral tablet (11 sources) Angiotensin 2 Receptor Yolette Start: 07-05-20 End: 08-31-19 take 1 tablet by mouth once daily losartan 25 mg Tab 25 mg = 1 tab(s), Oral, Daily, # 60 tab(s), Refills(s) 0, Pharmacy: [facility] #[id number], 165, cm, 07/02/23 21:30:00 EST, Height/Length Dosing, 55.7, kg, 07/02/23 21:30:00 EST, Weight Dosing Start Date: 07/05/23 Status: Ordered Comment on above: Take 25 mg by mouth once daily. omeprazole 40 mg delayed release oral capsule (5 sources) Proton Pump Inhibitor Start: 09-12-19 End: 09-11-19 take 1 capsule by mouth before mealtime omeprazole (PriLOSEC) [address] capsule Indications: Gastroesophageal reflux disease without esophagitis Take 1 capsule (40 mg) by mouth in the morning. Take before meals. Do not crush or chew.. 30 capsule 09/12/2023 09/11/2024 Active pantoprazole 40 mg delayed release oral tablet (10 sources) Proton Pump Inhibitor Start: 09-26-19 End: 12-25-19 take 1 tablet by mouth once daily pantoprazole DR (PROTONIX) 40 mg tablet Indications: Non-rheumatic mitral regurgitation , Persistent atrial fibrillation (HCC) , Non-ischemic cardiomyopathy (HCC) , Chronic HFrEF (heart failure with reduced ejection fraction) (HCC) take 1 tablet by mouth every day 90 tablet 12/22/2023 Active Comment on above: Take 1 tablet by antonio th once daily. polyethylene glycol 3350 38565 mg powder for oral solution (20 sources) Osmotic Laxative Start: 08-31-19 polyethylene glycol 3350 17 gram/dose powder Take 17 g by mouth once daily as needed. Dissolve dose in 4 - 8 ounces of liquid and take as directed. 510 g 1 08/31/2023 Active Start: 07-05-2023 take 17 g by mouth once daily polyethylene glycol 3350 17 gram packet 17 gm, Oral, Daily, # 255 gm, Refills(s) 0, Pharmacy: [facility] #[id number], 165, cm, 07/02/23 21:30:00 EST, Height/Length Dosing, 55.7, kg, 07/02/23 21:30:00 EST, Weight Dosing Start Date: 07/05/23 Status: Ordered Comment on above: Take 17 g by mouth o nce daily as needed. Dissolve dose in 4 - 8 ounces of liquid and take as directed. spironolactone 25 mg oral tablet (17 sources) Aldosterone Antagonist Start: 024 End: take 0.5 tablet by mouth once daily spironolactone (ALDACTONE) 25 mg tablet Take a half tablet by mouth once daily. 30 tablet 1 08/31/2023 Active Comment on above: Take a half tablet b y mouth once daily. Tobramycin (1 source) Aminoglycoside Antibacterial Start: End: take 1 drop(s) into the eye(s) four times daily tobramycin ophthalmic 0.3% solution 1 drop(s), Eye-Both, QID for 7 day(s), 5 mL, Refill(s) 0, [facility] #[id number], 165, cm, 12/24/21 17:41:00 EDT, Height/Length Dosing, 54, kg, 12/24/21 17:41:00 EDT, Weight Dosing Start Date: 12/24/21 Stop Date: 12/31/21 Status: Ordered Zofran ODT 4 mg Tab-Dis (11 sources) Start: take 1 tablet by mouth every eight hours Zofran ODT 4 mg Tab-Dis 4 mg = 1 tab(s), Oral, q8hr, # 12 tab(s), Refills(s) 0, Pharmacy: [facility] #[id number], 165, cm, 06/30/23 19:37:00 EST, Height/Length Dosing, [...] completed, # 2 tab(s), Refills(s) 0, Pharmacy: [facility] #[id number], 165, cm, 04/26/23 15:23:00 EDT, Height/Length Dosing, 54.7, kg, 04/26/23 15:23:00 EDT, Weight Dosing Start Date: 04/26/23 Status: Ordered Start: 10-14-2022 take 1 tablet by antonio th once daily Cipro 500 mg Tab 500 mg = 1 tab(s), Oral, Daily, Take 1 tablet the day before the procedure and 1 tablet after the procedure, # 2 tab(s), Refills(s) 0, Pharmacy: [facility] 1986, 165, cm, 10/03/22 14:34:00 EST, Height/Length Dosing, 54.7, kg, 10/03/22 14:34:00 E... Start Date: 10/14/22 Status: Ordered Start: 03-03-2022 take 1 tablet by antonio once daily Cipro 500 mg Tab 500 mg = 1 tab(s), Oral, As Directed, Take 1 tablet day before procedure, and then 1 tablet day of procedure after procedure, # 2 tab(s), Refills(s) 0, Pharmacy: [facility] 1986, 165, cm, 03/03/22 10:04:00 EDT, Height/Length Dosing, 54, kg, 02/12... Start Date: 03/03/22 Status: Ordered loperamide hydrochloride 2 mg oral capsule (2 sources) Opioid Agonist Start: 10-24-2017 End: 08-28-2023 take 2 capsules by mouth once loperamide (IMODIUM) 2 mg cap(s) Indications: Screening for colon cancer Take 2 capsules by mouth one time only for 1 dose. Take one hour after last bowel movement 2 capsule 0 10/24/2017 08/28/2023 Discontinued (Course of therapy completed) Comment on above: Take 2 capsules by m outh one time only for 1 dose. Take [...] monohydrate and macrocrystal 100 mg cap(s) (MACROBID) ondansetron 4 mg disintegrating oral tablet (6 sources) Serotonin-3 Receptor Antagonist Start: 07-01-2023 End: 08-31-2023 take 1 tablet by mouth every eight hours ondansetron orally disintegrating (ZOFRAN ODT) 4 mg disintegrating tablet DISSOLVE 1 TABLET ON THE TONGUE EVERY 8 HOURS 0 07/01/2023 08/31/2023 Discontinued Comment on above: DISSOLVE 1 TABLET ON THE TONGUE EVERY 8 HOURS tamsulosin hydrochloride 0.4 mg oral capsule (2 sources) alpha-Adrenergic Yolette Start: 10-18-2012 End: 08-28-2023 take 1 capsule by mouth once daily at bedtime tamsulosin 0.4 mg Cp24 Take 1 capsule by mouth daily at bedtime. 30 capsule 3 10/18/2012 08/28/2023 Discontinued (Course of therapy completed) Comment on above: Take 1 capsule by mo uth daily at bedtime. valsartan 80 mg oral tablet (6 sources) Angiotensin 2 Receptor Yolette Start: 08-31-2023 End: 09-26-2023 take 1 tablet by mouth once daily [...] pain] Onset: 3 01-22-2020 Episodic Adjustment disorders (13 sources) Adjustment disorder with mixed anxiety and depressed mood; Translations: [Adjustment disorder with mixed anxiety and depressed mood] Onset: 4 08-29-2023 Chronic Anxiety disorders (20 sources) Anxiety; Translations: [Anxiety disorder] Onset: 3 01-23-2019 Chronic Cardiac dysrhythmias (20 sources) Unspecified atrial fibrillation; Translations: [Persistent atrial fibrillation] Onset: 3 Chronic Coagulation and hemorrhagic disorders (2 sources) Thrombophilia; Translations: [Other thrombophilia] 09-26-2023 Chronic Conduction disorders (4 sources) Presence of automatic (implantable) cardiac defibrillator; Translations: [Encounter for adjustment and management of automatic implantable cardiac defibrillator] Onset: 4 Chronic Congestive heart failure; nonhypertensive (11 sources) Acute systolic heart failure; Translations: [Acute systolic (congestive) heart failure] Onset: 3 Resolved: 4 Chronic Coronary atherosclerosis and other heart disease (3 sources) Coronary atherosclerosis; Translations: [Atherosclerotic heart disease of [place] coronary artery without angina pectoris] Onset: 3 Chronic E Codes: Adverse effects of medical drugs (1 source) Adverse reaction to biological substance; Translations: [Adverse effect of unspecified drugs, medicaments and biological substances, initial encounter] Onset: 4 Episodic Esophageal disorders (20 sources) Gastroesophageal reflux disease; Translations: [Gastroesophageal reflux disease without esophagitis] Onset: 3 01-30-2014 Chronic Essential hypertension (14 sources) Essential hypertension; Translations: [Essential (primary) hypertension] Onset: 4 08-27-2023 Chronic Heart valve disorders (20 sources) Non-rheumatic mitral regurgitation ; Translations: [Nonrheumatic mitral (valve) insufficiency] Onset: 3 Chronic Inflammation; infection of eye (except that caused by tuberculosis or sexually transmitteddisease) (1 source) Toxic conjunctivitis; Translations: [Acute toxic conjunctivitis, bilateral] Onset: 2 Episodic Malaise and fatigue (5 sources) Chronic fatigue syndrome; Translations: [Chronic fatigue syndrome] Onset: 3 01-30-2023 Chronic Menopausal disorders (18 sources) Atrophic vaginitis; Translations: [Postmenopausal atrophic vaginitis] Onset: 3 Chronic Noninfectious gastroenteritis (20 sources) Acute gastroenteritis; Translations: [Noninfective gastroenteritis and colitis, unspecified] Onset: 3 06-09-2019 Episodic Nutritional deficiencies (16 sources) Deficiency of macronutrients; Translations: [Unspecified severe protein-calorie malnutrition] Onset: 4 08-30-2023 Chronic Open wounds of head; neck; and trunk (20 sources) Superficial laceration of face; Translations: [Laceration without foreign body of other part of head, initial encounter] Onset: 3 01-27-2018 Episodic Other aftercare (1 source) Long-term current use of drug therapy; Translations: [Other detention (current) drug therapy] Onset: 3 Episodic Other aftercare (1 source) Long-term 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; Translations: [MCC (current) use of 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s] 09-26-2023 Episodic Other aftercare (2 sources) Post-discharge follow-up; Translations: [Encounter for follow-up examination after completed treatment for conditions other than malignant neoplasm] 09-18-2023 Episodic Other circulatory disease (1 source) Disorder of arteries and arterioles, unspecified; Translations: [Disorder of artery or arteriole (HCC)] Onset: 4 Chronic Other diseases of kidney and ureters (1 source) Disorder of kidney and/or ureter; Translations: [Disorder of kidney and ureter, unspecified] Onset: 3 Episodic Other diseases of kidney and ureters (17 sources) Kidney lesion; Translations: [Disorder of kidney and ureter, unspecified] Onset: 3 04-26-2023 Episodic Other gastrointestinal disorders (3 sources) Constipation, unspecified; Translations: [Constipation, unspecified] Onset: [...] conditions (not mental disorders or infectious disease) (3 sources) Blood chemistry abnormal; Translations: [Other specified abnormal findings of blood chemistry] Onset: 3 Episodic Other upper respiratory disease (5 sources) Seasonal allergy; Translations: [Other seasonal allergic rhinitis] Onset: 3 01-30-2023 Chronic Staci-; endo-; and myocarditis; cardiomyopathy (except that caused by tuberculosis or sexually transmitted disease) (20 sources) Cardiomyopathy; Translations: [Other cardiomyopathies] Onset: 4 [...] history of other medical treatment] 09-26-2023 Episodic Screening and history of mental health [...] Translations: [Other persistent atrial fibrillation] Onset: 4 Varicose veins of lower extremity (2 sources) Pain due to varicose veins of lower extremity; Translations: [Varicose veins of unspecified lower extremity with pain] Onset: 2 Episodic Viral infection (1 source) Viral disease; Translations: [Viral infection, unspecified] Episodic Past or Other Problems Problem Classification Problem Date Documented Date Episodic/Chronic Conditions associated with dizziness or vertigo (2 sources) Dizziness and giddiness; Translations: [Dizziness and giddiness] Onset: 10-10-2023 Episodic Genitourinary symptoms and ill-defined conditions (20 sources) Delay when starting to pass urine; Translations: [Dysuria] Onset: 09-26-2012 07-29-2020 Episodic Intestinal obstruction without hernia (19 sources) Intestinal obstruction; Translations: [Unspecified intestinal obstruction, unspecified as to partial versus complete obstruction] Onset: 03-13-2009 03-13-2009 Episodic Miscellaneous mental health disorders (5 sources) Transient insomnia; Translations: [Adjustment insomnia] Onset: 01-30-2023 01-30-2023 Episodic Other circulatory disease (1 source) Other specified symptoms and signs involving the circulatory and respiratory systems; Translations: [Other specified symptoms and signs involving the circulatory and respiratory systems] Onset: 08-23-2023 Episodic Other diseases of bladder and urethra (20 sources) Urethral stricture; Translations: [Other urethral stricture, female] Onset: 03-03-2022 07-29-2020 Episodic Other diseases of bladder and urethra (1 source) Unspecified urethral stricture, female; Translations: [Stricture of female urethra, unspecified stricture type] Onset: 08-27-2023 Episodic Other female genital disorders (5 sources) Disorder of vagina; Translations: [Stricture and atresia of vagina] Onset: 01-30-2023 01-30-2023 Episodic Other lower respiratory disease (2 sources) Shortness of breath; Translations: [Shortness of breath] Onset: 10-30-2023 Episodic Residual codes; unclassified (1 source) Other specified postprocedural states; Translations: [H/O major abdominal surgery] Onset: 08-28-2023 Episodic Unclassified (1 source) Exposure to 2019 novel coronavirus; Translations: [Contact with and (suspected) exposure to COVID19] Urinary tract infections (2 sources) Acute cystitis without hematuria; Translations: [Acute cystitis without hematuria] Onset: 10-10-2023 Episodic Results Test Name Value Interpretation Reference Range Facility Office Visiton 05-27-2024 Follow-up visit [id number] Harjit Asencio I 1950 F Date Provider Department [place] 05/27/2024 Mulu-NEREYDA ROBINS CECILE Davies Family History Problem Relation Age of Onset Coronary artery disease Mother Diabetes Mother Coronary artery disease Father Family Status - Relation Status Age at Mother Father Level of Service:66172 [place] OFFICE/OUTPATIENT ESTABLISHED MOD MDM 30 MIN Normal [facility] CNOVon 05-07-2024 CNOV Office Visit (UROLMN ) HARJIT ASENCIO I ([id number]) 1950 F Date Time Provider Department 05/07/24 1:40 PM RAPHAEL GOLDSMITH UROLMN During your visit today, we recorded the following information about you: Nila Uriarte OCCA 05/07/2024 1:24 PM Signed Post Void Residual done on patient with 0 cc residual volume remaining. notified. CARISSA Garvey Sandip P, MD 05/07/2024 5:01 PM Signed [facility] RECONSTRUCTIVE SURGERY HISTORY OF PRESENT ILLNESS: Harjit Asencio is a 74 year old female history of sigmoid colectomy (1996), NICM, HTN, Afib w RBR, MR, TR, HF, and urethral stricture s/p recent dilation 04/2023 and repeat dilation to 26 Fr in office on 10/16/2023. Here today for 6 month follow up regarding urinary hesitancy, incomplete voiding. Patient states that she has been having gradually worsening symptoms of urinary retention and abdominal straining to urinate, similar to the quality of symptoms she had prior to her previous urethral dilations. Of note patient is taking spironoloactone for HF and states it is making the sensation of urinary retention significantly worse. Denies any leakage, recent infections, hematuria. GENERAL REVIEW OF SYSTEMS: GI:SEE HPI GENITOURINARY:SEE HPI HISTORIES: Present Medications: carvedilol (COREG) 6.25 mg tablet Take 6.25 mg by mouth two times a day with meals. carvedilol (COREG) 12.5 mg tablet Take 12.5 mg by mouth. apixaban (ELIQUIS) 5 mg tab(s) Take 1 tablet by mouth two times a day. atorvastatin (LIPITOR) 40 mg tablet Take 1 tablet by mouth daily at bedtime. carvedilol (COREG) 12.5 mg tablet Take 1 tablet by mouth two times a day with meals. spironolactone (ALDACTONE) 25 mg tablet Take a half tablet by mouth once daily. digoxin (LANOXIN) 125 mcg (0.125 mg) tablet Take HALF tablet by mouth daily (not one complete tablet) lisinopril (ZESTRIL) 10 mg tablet take 1/2 tablet by mouth once daily pantoprazole DR (PROTONIX) 40 mg tablet take 1 tablet by mouth every day polyethylene glycol 3350 17 gram/dose powder Take 17 g by mouth once daily as needed. Dissolve dose in 4 - 8 ounces of liquid and take as directed. LORazepam (ATIVAN) 1 mg tablet Take 1 mg by mouth every 6 hours as needed for anxiety. No current facility-administered medications for this visit. Past Family History: FAMILY HISTORY Problem Relation Age of Onset Diabetes Mother Heart disease Mother Heart disease Father Past Medical History: PAST MEDICAL HISTORY Diagnosis Date Anxiety state, unspecified GERD (gastroesophageal reflux disease) Heart murmur Hemorrhoids HTN (hypertension) Hypothyroid IBS (irritable bowel syndrome) Mitral regurgitation Proctocolitis Rectal pain Tricuspid regurgitation Urethral stricture Past Surgical History: PAST SURGICAL HISTORY Procedure Laterality Date EXC CYST/ABERRANT BREAST TISSUE OPEN 1/> LESION PAST SURGICAL HISTORY OF 1995 tailbone surgery TOTAL ABDOMINAL HYSTERECT W/WO RMVL TUBE OVARY Hysterectomy, MIR UNLISTED PROCEDURE ABDOMEN PERITONEUM AND OMENTUM 1996 Sigmoid colectomy with primary end-to-end colorectal anastomosis. Past Social History: Social History Tobacco Use Smoking status: Former Smokeless tobacco: Never Tobacco comments: Quit 1996. social smoker mostly Vaping Use Vaping status: Never Used Substance Use Topics Alcohol use: Not Currently Drug use: No PHYSICAL EXAM: VITAL SIGNS:There were no vitals taken for this visit. GENERAL: Well appearing, alert, in no acute distress, well-hydrated, well nourished. CV: No extremity swelling, varices, edema, pallor, or erythema ABDOMEN: Soft, nontender, nondistended, no masses. GENITOURINARY: Exam NOT Indicated Tests Reviewed: PVR: 0 mL via bladder US and UA: Pending IMPRESSION: 74 year old F with urethral stricture now s/p urethral dilations on 04/2023 and 10/2023 with symptoms of urinary retention gradually returning 1. Feeling of incomplete bladder emptying - ICD9: 788.21, ICD10: R39.14 -Patient without retention, feelings of urethral pain, plan for repeat urethral dilation in 2-3 months at [place] in office -Plan to assess for atrophic vaginitis at time of urethral dilation due to patient concern for irritation around upper thigh/vagina Erika Ho MD I have personally performed a face to face diagnostic evaluation on this patient. My findings are as above. Raphael Goldsmith MD plan urethral dil per req Referring Provider: SELF [200] Allergies As of Date: 05/07/2024 Noted Allergy Reaction CEPHALEXIN 01/30/2023 16 - Unknown DEMORAL (MEPERIDINE) 05/14/2010 14 - Other: See Comments Comments: Patient does not know if she is allergic but know she is not suppose to take it. EGG 08/29/2023 5 - Intolerance 8 - GI Upset Comments: Per patient. (more content not included)... Normal [facility] URINALYSIS, REFLEX MICROSCOP ICon 05-07-2024 Bilirubin Ql (U) Negative Negative [facility] Clarity (Unsp spec) Clear Clear [facility] Color (U) Yellow Yellow [facility] Glucose Test strip (U) [Mass/Vol] Negative Negative [facility] Hemoglobin Ql (U) Negative Negative [facility] Interpretation and review of laboratory results Normal [facility] Ketones Ql (U) Negative Negative [facility] Leukocyte esterase Test strip Ql (U) Negative Negative [facility] Nitrite Ql (U) Negative Negative [facility] pH (U) 6.0 [pH] NINF - 8.5 [facility] Protein (U) [Mass/Vol] Negative Negative [facility] Specific gravity (U) [Rel density] 1.007 1.005 - 1.030 [facility] Urobilinogen Ql (U) 0.2 EU/dL 0.2-1.0 EU/dL [facility] Bilirubin Ql (U) Negative Normal [facility] Comment on above: Order Comment: Speci men Type: BLOOD SPECIMEN Ordering Facility: [facility] Address: [address] [id number] Performed By: #### 1 239, #### [facility] CLIA [id number] [address] [id number] [place] Clarity (Unsp spec) Clear Normal Clear [facility] Comment on above: Order Comment: Speci men Type: BLOOD SPECIMEN Ordering Facility: [facility] Address: [address] [place] [address] Performed By: #### 1 9, #### [facility] CLIA [id number] [address] [place] [address] [place] Color (U) Yellow Normal Yellow [facility] Comment on above: Order Comment: Speci men Type: BLOOD SPECIMEN Ordering Facility: [facility] Address: [address] [place] [address] Performed By: #### 1 9, #### [facility] CLIA [id number] [address] [place] [address] [place] Glucose Test strip (U) [Mass/Vol] Negative Normal Negative [facility] Comment on above: Order Comment: Speci men Type: BLOOD SPECIMEN Ordering Facility: [facility] Address: [address] [place] [address] Performed By: #### 1 239, #### [facility] CLIA [id number] [address] [id number] [place] Hemoglobin Ql (U) Negative Normal Negative [facility] Comment on above: Order Comment: Speci men Type: BLOOD SPECIMEN Ordering Facility: [facility] Address: [address] [place] [address] Performed By: #### 1 23-9, #### [facility] CLIA [id number] [address] [id number] [place] Ketones Ql (U) Negative Normal Negative [facility] Comment on above: Order Comment: Speci men Type: BLOOD SPECIMEN Ordering Facility: [facility] Address: [address] [place] [address] Performed By: #### 1 23-9, #### [facility] CLIA [id number] [address] [place] [address] [place] Leukocyte esterase Test strip Ql (U) Negative Normal Negative [facility] Comment on above: Order Comment: Speci men Type: BLOOD SPECIMEN Ordering Facility: [facility] Address: [address] [place] [address] Performed By: #### 1 239, #### [facility] CLIA [id number] [address] [place] [address] [place] Nitrite Ql (U) Negative Normal Negative [facility] Comment on above: Order Comment: Speci men Type: BLOOD SPECIMEN Ordering Facility: [facility] Address: [address] [place] [address] Performed By: #### 1 239, #### [facility] CLIA [id number] [address] [place] [address] [place] pH (U) 6.0 [pH] Normal <8.5 [facility] Comment on above: Order Comment: Speci men Type: BLOOD SPECIMEN Ordering Facility: [facility] Address: [address] [place] [address] Performed By: #### 1 9123-9, #### [facility] CLIA [id number] [address] [place] [address] [place] Protein (U) [Mass/Vol] Negative Normal Negative [facility] Comment on above: Order Comment: Speci men Type: BLOOD SPECIMEN Ordering Facility: [facility] Address: [address] [place] [address] Performed By: #### 1 23-9, 23693-4 #### [facility] CLIA [id number] [address] [place] [address] [place] Specific gravity (U) [Rel density] 1.007 Normal 1.005-1.030 [facility] Comment on above: Order Comment: Speci men Type: BLOOD SPECIMEN Ordering Facility: [facility] Address: [address] [place] [address] Performed By: #### 1 9123-9, 09937-0 #### [facility] CLIA [id number] [address] [place] [address] [place] Urobilinogen Ql (U) 0.2 EU/dL Normal 0.2-1.0 EU/dL [facility] Comment on above: Order Comment: Speci men Type: BLOOD SPECIMEN Ordering Facility: [facility] Address: [address] [place] [address] Performed By: #### 1 9123-9, 30789-6 #### [facility] CLIA [id number] [address] [place] [address] [place] 36on 05-06-2024 36 Pt informed and she will restart eliquis day after injections [facility] 36on 04-02-2024 36 Patient informed. [facility] 36on 03-26-2024 36 Patient wants to kno w if she needs an antibiotic prior to tooth extraction. She's pretty persistent that she needs one. She says a lot of dentists won't touch me without it . Please advise. Thanks. [facility] Office Visiton 03-06-2024 Follow-up visit [id number] Harjit Asencio I 1950 F Date Provider Department Center 03/06/2024 FELICIA ZAMBRANO Family History Problem Relation Age of Onset Coronary artery disease Mother Diabetes Mother Coronary artery disease Father Family Status - Relation Status Age at Mother Father Level of Service:36080 [place] POSTOP FOLLOW UP VISIT RELATED TO ORIGINAL PX [facility] HPon 02-28-2024 [facility] Electrophysiology Consult [facility] Reason for visit: Afib+ CMP 02/22/24 Pt here for [employer]PER[employer]OR-P Prior HPI: Harjit Asencio is a 73 y.o. year old with past medical history of systolic heart failure with a EF of 40%, atrial fibrillation, hypertension, hypothyroidism has been previously treated with digoxin and Coreg. She was initially noted to have atrial fibrillation with rapid ventricular rate and had previously undergone HAROON guided cardioversion in August 2023. At that time she was also noted to have moderate to severe MR and subsequently had a visit with [facility] where evaluation was being done for surgical correction of mitral valve but was noted to have high risk and hence deferred. [facility] also [facility] and thereafter had seen in follow-up who had added SG PL 2 inhibitors. She had a cardiopulmonary exercise test done in October 2023 during which he exercised for 7 minutes. She was in atrial fibrillation and on digoxin. Previously she was attempted on amiodarone but could not tolerated due to adverse effects and she is being referred for A-fib ablation. She thinks afib is coming and going . She denies chest pain, SOB, palpitations, and bleeding on Eliquis. PMH: Past Medical History: Diagnosis Date Abnormal ECG Arrhythmia Atrial fibrillation (CMS/HCC) CHF (congestive heart failure) (CMS/HCC) Heart murmur Heart valve disease Hypertension Nonischemic cardiomyopathy (CMS/HCC) PSH: Past Surgical History: Procedure Laterality Date CARDIOVERSION SH: Social Determinants of Health Tobacco Use: Medium Risk (02/22/2024) Patient History Smoking Tobacco Use: Former Smokeless Tobacco Use: Never Passive Exposure: Past Alcohol Use: Not on file Financial Resource Strain: Not on file Food Insecurity: Not on file Transportation Needs: Not on file Physical Activity: Not on file Stress: Not on file Social Connections: Not on file Intimate Partner Violence: Unknown (10/05/2023) [facility] Fear of Current or Ex-Partner: Not on file Emotionally Abused: Not on file Physically Abused: Not on file Sexually Abused: Not on file Physically or Sexually Abused: Not on file Depression: Not at risk (02/22/2024) PHQ-2 PHQ-2 Score: 0 Housing Stability: Not on file Utilities: Not on file Allergies: Allergies Allergen Reactions Amiodarone Nausea And Vomiting Amoxicillin Diarrhea Cephalexin GI intolerance, Nausea And Vomiting and Unknown Egg Derived Other Reaction(s): allergy Empagliflozin Angioedema Turned hands different colors and not breathing Erythromycin Unknown Morphine Unknown and Other Other Reaction(s): Unknown cause Other Reaction(s): Unknown cause Sulfa (Sulfonamide Antibiotics) GI intolerance and Other Valsartan Wheat Bran Other Reaction(s): allergy Weight: 51.4kg Visit Vitals BP 142/75 Pulse 73 Resp 14 SpO2 99% Smoking Status Former Meds: No current facility-administered medications on file prior to encounter. Current Outpatient Medications on File Prior to Encounter Medication Sig Dispense Refill apixaban (Eliquis) 5 mg tablet Take 1 tablet (5 mg) by mouth in the morning and at bedtime. (Patient taking differently: Take 5 mg by mouth in the morning and at bedtime.) 180 tablet 3 atorvastatin (Lipitor) 40 mg tablet Take 1 tablet (40 mg) by mouth in the evening. Do not take at bedtime 90 tablet 3 carvedilol (Coreg) 6.25 mg tablet Take 1 tablet (6.25 mg) by mouth with breakfast and with evening meal. 180 tablet 3 digoxin (Lanoxin) 125 MCG tablet Take 0.5 tablets (62.5 mcg) by mouth in the evening. 45 tablet 3 LORazepam (Ativan) 0.5 mg tablet Take 1 mg by mouth three times daily. spironolactone (Aldactone) 25 mg tablet Take 0.5 tablets (12.5 mg) by mouth in the morning and at bedtime. (Patient taking differently: Take 12.5 mg by mouth once daily as directed.) 90 tablet 3 ROS: Review of Systems Gastrointestinal: Positive for excessive appetite and nausea. Genitourinary: Positive for incomplete emptying. Neurological: Positive for light-headedness. Physical Exam: Constitutional General Appearance: well-nourished, well-developed, appears stated age Level of Distress: comfortable Psychiatric Mental Status: alert, normal affect Orientation: oriented to time, place, and person Insight: good judgement Eyes Lids and Conjunctivae: non-injected, no xanthelasma ENMT Ears: no lesions on external ear Nose: no lesions on external nose Oropharynx: no cyanosis, no pallor Neck Neck: supple, trachea midline Carotid Arteries: bilateral normal upstroke, no bruits Jugular Veins: normal jugular venous pressure Thyroid: not enlarged Lungs Respiratory Effort: unlabored Chest Exam: normal curvature, no thoracic deformity Auscultation: clear, no wheezing, no rales, no rhonchi Cardiovascular Rate And Rhythm: re (more content not included)... Normal [facility] NURSNOTEon 02-28-2024 NURSNOTE RN educated pt on d/ c instructions. RN encouraged pt to voice any questions or concerns. Pt verbalizes no questions or concerns at this time. Normal [facility] BASIC METABOLIC PANELon 02-11 Anion gap [Moles/Vol] 11 mmol/L Normal 7-20 [facility] Comment on above: Performed By: #### L AB15 ####[facility] (AKER)[address] [place] [address] Calcium [Mass/Vol] 9.4 mg/dL Normal 8.6-10.3 [facility] Comment on above: Performed By: #### L AB15 ####[facility] (BEAKER)[address] [place] [address] Chloride [Moles/Vol] 103 mmol/L Normal 98-107 [facility] Comment on above: Performed By: #### L AB15 ####[facility] (BEAKER)[address] [place] [address] CO2 [Moles/Vol] 28 mmol/L Normal 21-31 [facility] Comment on above: Performed By: #### L AB15 ####[facility] ([facility]ER)[address] [place] [address] Creatinine [Mass/Vol] 0.95 mg/dL Normal 0.60-1.20 [facility] Comment on above: Performed By: #### L AB15 ####[facility] (BEAKER)[address] [place] [address] GLOMERULAR FILTRATION RATE ML/MIN/1.73 SQ M.PREDICTED 62.5 mL/min/1.73m*2 Normal >60.0 [facility] Comment on above: Result Comment: The [facility]???s estimated glomerular filtration rate (eGFR) will no longer include consideration of race in its calculation. The National [employer]???s eGFR Task Force developed new recommendations for the estimation of the glomerular filtration rate in the [place] They recommend immediate implementation of the new equation refit without the race variable in all laboratories because the calculation does not include race. In addition to not including race in the calculation and reporting, it included diversity in its development, and has acceptable performance characteristics and potential consequences that do not disproportionately affect any one group of individuals. Performed By: #### L AB15 ####[facility] (BEAKER)[address] [place] [address] Glucose [Mass/Vol] 98 mg/dL Normal 70-100 [facility] Comment on above: Performed By: #### L AB15 ####[facility] (BEAKER)[address] [place] [address] Potassium [Moles/Vol] 4.5 mmol/L Normal 3.5-5.1 [facility] Comment on above: Performed By: #### L AB15 ####[facility] (BEAKER)[address] [place] [address] Sodium [Moles/Vol] 137 mmol/L Normal 136-145 [facility] Comment on above: Performed By: #### L AB15 ####[facility] (BEAKER)[address] [place] [address] Urea nitrogen [Mass/Vol] 15 mg/dL Normal 7-25 [facility] Comment on above: Performed By: #### L AB15 ####[facility] (BEAKER)[address] [place] [address] UREA NITROGEN/CREATININE (MASS RATIO) IN SER/PLAS 15.8 Normal [facility] Comment on above: Performed By: #### L AB15 ####[facility] (BEAKER)[address] [place] [address] CBCon 02-22-2024 Erythrocyte distribution width (RBC) [Ratio] 13.1 % Normal 11.5-15.0 [facility] Comment on above: Performed By: #### L AB294 ####[facility] (BEAKER)[address] [place] [address] ERYTHROCYTE MEAN CORPUSCULAR HEMOGLOBIN CONCENTRATION (G/DL) BY AUTOMATED 32.3 g/dL Normal 32.0-35.0 [facility] Comment on above: Performed By: #### L AB294 ####[facility] ([facility])[address] [place] [address] Hematocrit (Bld) [Volume fraction] 40.0 % Normal 36.0-48.0 [facility] Comment on above: Performed By: #### L AB294 ####[facility] ([facility])[address] [place] [address] Hemoglobin (Bld) [Mass/Vol] 12.9 g/dL Normal 12.0-15.0 [facility] Comment on above: Performed By: #### L AB294 ####[facility] ([facility])[address] [place] [address] MCH (RBC) [Entitic mass] 30.0 pg Normal 27.0-33.0 [facility] Comment on above: Performed By: #### L AB294 ####[facility] (BEAKER)[address] [place] [address] MCV (RBC) [Entitic vol] 93.0 fL Normal 82.0-98.0 [facility] Comment on above: Performed By: #### L AB294 ####[facility] (BEAKER)[address] [place] [address] PLATELETS (10*3/UL) IN BLOOD AUTOMATED COUNT 210 10*3/uL Normal 150-400 [facility] Comment on above: Performed By: #### L AB294 ####[facility] (BEAKER)[address] [place] [address] RBC (Bld) [#/Vol] 4.30 10*6/uL Normal 3.80-5.[address] [facility] Comment on above: Performed By: #### L AB294 ####[facility] (BEAKER)[address] [place] [address] WBC (Bld) [#/Vol] 8.26 10*3/uL Normal 4.00-10.[address] [facility] Comment on above: Performed By: #### L AB294 ####[facility] (BEAKER)[address] [place] [address] Labon 02-22-2024 Lab [id number] Daniel Asencioe I 1950 Provider Department Center 02/22/2024 [facility] Family History Problem Relation Age of Onset Coronary artery disease Mother Diabetes Mother Coronary artery disease Father Family Status - Relation Status Age at Mother Father Normal [facility] Office Visiton 02-22-2024 Follow-up visit [id number] Daniel Asencioe I 1950 Provider Department Center 02/22/2024 PATTY DIANE [facility] Family History Problem Relation Age of Onset Coronary artery disease Mother Diabetes Mother Coronary artery disease Father Family Status - Relation Status Age at Mother Father Level of Service:80883 [place] OFFICE/OUTPATIENT ESTABLISHED LOW MDM 20 MIN Normal [facility] Orders Onlyon 02-20-2024 Orders Only [id number] Daniel Asencioe I 1950 Provider Department [place] 02/20/2024 Karena-CONSTANCE CHRISTIANSON [facility] VASC LAB [facility] Family History Problem Relation Age of Onset Coronary artery disease Mother Diabetes Mother Coronary artery disease Father Family Status - Relation Status Age at Mother Father Normal [facility] Orders Onlyon 02-13-2024 Orders Only [id number] Daniel Asencioe I 1950 Provider Department Center 02/13/2024 895-BIANCA GEORGE CARD [facility] Family History Problem Relation Age of Onset Coronary artery disease Mother Diabetes Mother Coronary artery disease Father Family Status - Relation Status Age at Mother Father Normal [facility] Office Visiton 01-30-2024 Follow-up visit [id number] Harjit Asencio I 1950 Provider Department Center 01/30/2024 JennyPATTY BAUM CECILE [facility] Family History Problem Relation Age of Onset Coronary artery disease Mother Diabetes Mother Coronary artery disease Father Family Status - Relation Status Age at Mother Father Level of Service:56667 [place] OFFICE/OUTPATIENT NEW MODERATE MDM 45 MINUTES Normal [facility] 36on 12-18-2023 36 Regarding lab result s from 12/13/2023: MD Mary Thompson MA Please tell her renal function is normal. Patient informed. She mentioned spironolactone again keeping her up all night when she takes it in the morning, and evening. I read to her from Dr. Robins most recent office visit that he reduced the dose to 12.5mg once daily. She verbalized understanding. Normal [facility] Orders Onlyon 12-04-2023 Orders Only [id number] Harjit Asencio I 1950 Provider Department [place] 12/04/2023 BIANCA MIGUEL CECILE [facility] Family History Problem Relation Age of Onset Coronary artery disease Mother Diabetes Mother Coronary artery disease Father Family Status - Relation Status Age at Mother Father Normal [facility] Office Visiton 12-01-2023 Follow-up visit [id number] Harjit Asencio I 1950 Provider Department [place] 12/01/2023 NEREYDA PEDERSEN CECILE [facility] Family History Problem Relation Age of Onset Coronary artery disease Mother Diabetes Mother Coronary artery disease Father Family Status - Relation Status Age at Mother Father Level of Service:65608 [place] OFFICE/OUTPATIENT ESTABLISHED MOD MDM 30 MIN Reason for Visit and Comments: Follow-up [533613] - 1 month follow up Normal [facility] Orders Onlyon 11-29-2023 Orders Only [id number] ElifHarjit I 1950 Provider Department [place] 11/29/2023 OMAIRA SOLORIO CECILE [facility] Family History Problem Relation Age of Onset Coronary artery disease Mother Diabetes Mother Coronary artery disease Father Family Status - Relation Status Age at Mother Father Normal [facility] C Urineon 11-24-2023 Bacteria identified Cx Nom (U) Normal [facility] Comment on above: Performed By: #### 2 [id number], [id number] ####[facility] [address] [place] [address] 36on 11-23-2023 36 Patient called wanting to know if she can cut her spironolactone back down to 12.5mg daily. She says the 25mg in the AM is upsetting her stomach, constipating her, and dehydrating her. She is scheduled to see you next Monday. Please advise. Patient was very hesitant to make this adjustment without your blessing. Thanks. Normal [facility] BB Draw & Holdon 11-23-2023 BB D&H Sample drawn for Blood Ba Normal [facility] Comment on above: Performed By: #### 1 [id number], 92964497, 35295013, 8371705, 2903576, 21013603, 8370409 ####[facility] [address] [place] [address] CT Abdomen/Pelvis w/ Contras ton 11-23-2023 CT Abdomen/Pelvis w/ Contrast Normal [facility] ED Note-Physicianon 11-23-19 ED Note-Physician Normal [facility] Comment on above: Result Comment: Elec tronically Signed By: Cruz Zhou PA-C\.br\Date and Time Signed: 11/22/23 20:45 EDT\.br\Electronically Co-Signed By: Jayson Calloway DO\.br\Date and Time Co-Signed: 11/23/23 07:15 EDT CBC w/ Auto Diffon 4 Basophils/100 WBC (Bld) 1.1 % Normal 0.0-2.0 [facility] Comment on above: Performed By: #### 1 5821585, 66378140, 41410945, 0357227, 9443892, 38346069, 9758666 ####[facility] [address] [place] [address] Basophils/Leukocytes Auto (Bld) [Pure # fraction] 0.1 E9/L Normal 0.0-0.2 [facility] Comment on above: Performed By: #### 1 2304262, 05193405, 38813012, 6222989, 5270990, 22967901, 6097216 ####[address] [place] [address] Eosinophils (Bld) [#/Vol] 0.0 E9/L Normal 0.0-0.5 [facility] Comment on above: Performed By: #### 1 9837119, 99874746, 25068562, 6247318, 4144595, 27871665, 8402104 ####[address] [place] [address] Eosinophils/100 WBC (Bld) 0.2 % Normal 0.0-8.0 [facility] Comment on above: Performed By: #### 1 1136426, 30408283, 09777789, 4848845, 1383774, 84645358, 3917201 ####[address] Erythrocyte distribution width (RBC) [Ratio] 14.7 % High 10.9-14.2 [facility] Comment on above: Performed By: #### 1 9346147, 53347515, 20642866, 2353204, 0073692, 07758803, 1408402 ####[address] [place] [address] Hematocrit (Bld) [Volume fraction] 42.0 % Normal 34.0-46.0 [facility] Comment on above: Performed By: #### 1 5193547, 05410066, 70244083, 7492582, 1595840, 83527335, 1317978 ####[address] [place] [address] Hemoglobin (Bld) [Mass/Vol] 13.9 g/dL Normal 12.0-16.0 [facility] Comment on above: Performed By: #### 1 2425909, 94836416, 50954430, 2440077, 0130630, 01575083, 2234855 ####[facility] [address] [place] [address] Lymphocytes (Bld) [#/Vol] 2.1 E9/L Normal 1.0-4.0 [facility] Comment on above: Performed By: #### 1 5749718, 86307036, 76135793, 3837152, 2507038, 45017251, 4284346 ####[address] [place] [address] Lymphocytes/100 WBC (Bld) 25.6 % Normal 14.0-50.0 [facility] Comment on above: Performed By: #### 1 9016546, 17133946, 33072585, 9806890, 8310678, 87925136, 3131989 ####[address] [address] MCH (RBC) [Entitic mass] 30.3 pg Normal 27.0-34.0 [facility] Comment on above: Performed By: #### 1 9641105, 89427736, 95929932, 3464843, 7048235, 98944391, 1246214 ####[address] [address] MCHC (RBC) [Mass/Vol] 33.1 g/dL Normal 31.4-36.0 [facility] Comment on above: Performed By: #### 1 3421665, 70601915, 59602249, 5006987, 5919229, 70030776, 3325482 ####[address] [address] MCV (RBC) [Entitic vol] 91.5 fL Normal 80.0-100.0 [facility] Comment on above: Performed By: #### 1 9754129, 84978425, 52216182, 5136336, 8905329, 63348990, 8900223 ####[address] [address] Monocytes (Bld) [#/Vol] 0.5 E9/L Normal 0.2-1.0 [facility] Comment on above: Performed By: #### 1 0962617, 58531802, 18341037, 2572676, 0988594, 31935624, 7132024 ####[facility] [address] [place] [address] Neutrophils (Bld) [#/Vol] 5.5 E9/L Normal 2.0-7.5 [facility] Comment on above: Performed By: #### 1 1559684, 50251389, 95361678, 1759757, 7349901, 03139417, 0442143 ####[facility] [address] [place] [address] Neutrophils/100 WBC (Bld) 66.8 % Normal 36.0-75.0 [facility] Comment on above: Performed By: #### 1 8799833, 85833444, 62023843, 1806179, 6787923, 01191952, 1509666 ####[address] [place] [address] Platelet mean volume (Bld) [Entitic vol] 8.3 fL Normal 6.4-10.8 [facility] Comment on above: Performed By: #### 1 8242742, 26112058, 21988627, 2659169, 2201323, 28362644, 9422168 ####[address] [place] [address] Platelets (Bld) [#/Vol] 250.0 E9/L Normal 150.0-500.0 [facility] Comment on above: Performed By: #### 1 9484190, 74048788, 34929396, 6115922, 8785288, 25267211, 1571117 ####[address] [place] [address] RBC (Bld) [#/Vol] 4.6 E12/L Normal 4.3-5.9 [facility] Comment on above: Performed By: #### 1 7846237, 13125555, 12299653, 6753479, 0390832, 96435849, 6055971 ####[facility] [address] [place] [address] WBC corrected for nucl RBC Auto (Bld) [#/Vol] 8.3 E9/L Normal 4.0-11.0 [facility] Comment on above: Performed By: #### 1 0361648, 90817307, 24506876, 0321239, 9837264, 68365765, 4970810 ####[facility] [address] [place] [address] CHEMISTRYOrdered By: SYSTEM SYSTEM on 11-22-2023 Albumin [Mass/Vol] 4.6 g/dL Normal 3.3 - 5.0 gm/dL [facility] Albumin/Globulin [Mass ratio] 1.8 {ratio} Normal 1.1 - 2.2 [facility] ALP [Catalytic activity/Vol] 90 [iU]/d Normal 21 - 98 Int._Unit/L [facility] ALT No additional P-5'-P [Catalytic activity/Vol] 41 [iU]/d Normal 6 - 46 Int._Unit/L [facility] Anion gap [Moles/Vol] 13 mmol/L Normal 6 - 16 mEq/L R emisol Chem AST [Catalytic activity/Vol] 30 [iU]/d Normal 5 - 43 Int._Unit/L [facility] Bilirubin [Mass/Vol] 1.0 mg/dL Normal 0.0 - 1 .1 mg/dL [facility] Calcium [Mass/Vol] 10.0 mg/dL Normal 8.9 - 11. 1 mg/dL [facility] Chloride [Moles/Vol] 99 mmol/L Low 101 - 1 11 mmol/L [facility] CO2 [Moles/Vol] 27 mmol/L Normal 21 - 31 mmol/L [facility] Creatinine [Mass/Vol] 1.0 mg/dL Normal 0.5 - 1.3 mg/dL [facility] eGFR 58 mL/min/1.73 m2 Low >=59mL/min /1 .73 m2 [facility] Globulin (S) [Mass/Vol] 2.6 g/dL Normal 1.4 - 4.0 gm/dL [facility] Glucose [Mass/Vol] 114 mg/dL Normal 55 - 199 mg/dL [facility] Magnesium [Mass/Vol] 2.0 mg/dL Normal 1.3 - 2 .4 mg/dL [facility] Potassium [Moles/Vol] 4.2 mmol/L Normal 3.5 - 5.3 mmol/L [facility] Protein [Mass/Vol] 7.2 g/dL Normal 6.0 - 7.8 gm/dL [facility] Sodium [Moles/Vol] 135 mmol/L Normal 135 - 145 mmol/L [facility] Troponin 12.30 pg/mL Normal 10.10 - 27.10 pg/mL [facility] Comment on above: Interpretive Data: T he 95% CI (Confidence Interval) PPV (Positive Predictive Value) for myocardial infarction in females is 38 pg/mL, in males 51 pg/mL. The results should be used in conjunction with clinical conditions of myocardial infarction. (Access High Sensitivity Troponin I Instructions For Use, Marlys Ariadne, March 2018) Urea nitrogen [Mass/Vol] 20 mg/dL Normal 5 - 21 mg/dL [facility] Urea nitrogen/Creatinine [Mass ratio] 20 mg/mg Normal 10 - 20 [facility] CMPon 11-22-2023 Albumin [Mass/Vol] 4.6 g/dL Normal 3.3-5.0 [facility] Comment on above: Performed By: #### 1 0553412, 71351587, 45683141, 8446979, 5816170, 21549978, 4373174 ####[facility] [address] [place] [address] Albumin/Globulin (S) [Mass conc ratio] 1.8 Normal 1.1-2.2 [facility] Comment on above: Performed By: #### 1 4158457, 15990045, 88593394, 5417323, 3795112, 93313288, 0723107 ####[facility] [address] [place] [address] ALP [Catalytic activity/Vol] 90 Int._Unit/L Normal 21-98 [facility] Comment on above: Performed By: #### 1 9203887, 48689480, 96657346, 7691171, 3160100, 71369124, 1238245 ####[facility] [address] [place] [address] ALT No additional P-5'-P [Catalytic activity/Vol] 41 Int._Unit/L Normal 6-46 [facility] Comment on above: Performed By: #### 1 9194527, 02590170, 59664321, 9959489, 9638231, 14606449, 0090190 ####[facility] [address] [place] [address] Anion gap [Moles/Vol] 13 mmol/L Normal 6-16 [facility] Comment on above: Performed By: #### 1 0535569, 15574056, 10075159, 0446320, 5836960, 06033456, 4499105 ####[facility] [address] [place] [address] AST [Catalytic activity/Vol] 30 Int._Unit/L Normal 5-43 [facility] Comment on above: Performed By: #### 1 7713568, 75637241, 45220948, 0054673, 5141801, 45540435, 3890826 ####[facility] [address] [place] [address] Bilirubin [Mass/Vol] 1.0 mg/dL Normal 0.0-1.1 [facility] Comment on above: Performed By: #### 1 3013253, 62137108, 38809954, 9942812, 7704056, 80562676, 0999100 ####[facility] [address] [place] [address] Calcium [Mass/Vol] 10.0 mg/dL Normal 8.9-11.1 [facility] Comment on above: Performed By: #### 1 8796435, 92491918, 51597072, 9560197, 2775551, 35667101, 7690744 ####[facility] [address] [place] [address] Chloride [Moles/Vol] 99 mmol/L Low 101-111 [facility] Comment on above: Performed By: #### 1 6758577, 56191735, 87078359, 2184465, 6044875, 64536476, 1117296 ####[facility] [address] [place] [address] CO2 [Moles/Vol] 27 mmol/L Normal 21-31 [facility] Comment on above: Performed By: #### 1 7897287, 14362007, 38049490, 7844897, 5452166, 34932725, 1843273 ####[facility] [address] [place] [address] Creatinine [Mass/Vol] 1.0 mg/dL Normal 0.5-1.3 [facility] Comment on above: Performed By: #### 1 4720512, 44030797, 03283869, 9613935, 2624974, 37668547, 7738428 ####[facility] [address] [place] [address] Globulin (S) [Mass/Vol] 2.6 g/dL Normal 1.4-4.0 [facility] Comment on above: Performed By: #### 1 3125686, 83522797, 82308668, 9789233, 7172552, 73719715, 7772587 ####[facility] [address] [place] [address] Glucose [Mass/Vol] 114 mg/dL Normal 55-199 [facility] Comment on above: Performed By: #### 1 8628520, 88286795, 33679466, 8140937, 5131298, 25402899, 9699564 ####[facility] [address] [place] [address] Potassium [Moles/Vol] 4.2 mmol/L Normal 3.5-5.3 [facility] Comment on above: Performed By: #### 1 9411120, 77168539, 90699180, 6449698, 9145099, 22118957, 3448869 ####[facility] [address] [place] [address] Protein [Mass/Vol] 7.2 g/dL Normal 6.0-7.8 [facility] Comment on above: Performed By: #### 1 0170859, 21730413, 23457817, 1860335, 0808825, 44957337, 0528745 ####[facility] [address] [place] [address] Sodium [Moles/Vol] 135 mmol/L Normal 135-145 [facility] Comment on above: Performed By: #### 1 3035146, 32589323, 76172603, 2302019, 5974089, 40016143, 8466699 ####[facility] [address] [place] [address] Urea nitrogen [Mass/Vol] 20 mg/dL Normal 5-21 [facility] Comment on above: Performed By: #### 1 7040493, 58957351, 86800728, 7965989, 7633102, 54282480, 6131174 ####[facility] [address] [place] [address] Urea nitrogen/Creatinine [Mass ratio] 20 No Units Normal 10-20 [facility] Comment on above: Performed By: #### 1 4180971, 36864159, 54483468, 1956269, 2074078, 91686052, 6431427 ####[facility] [address] [place] [address] COAGULATIONOrdered By: Elena Dinero on 11-22-2023 aPTT Coag (PPP) [Time] 41.3 s High 25.1 - 36.5 second(s) [facility] Auto Coag Comment on above: Interpretive Data: [...] obtained from a study by keith Fam alElise prepared from 1437 samples obtained at 7 different centers using the same coagulation reagent and instrumentation as [facility]. Currently there are no coagulation studies available worldwide for children to 14 days, and no normal ranges. Heparin therapeutic range (represented by Anti-Factor Xa activity of 0.2 - 0.4 U/mL) corresponds to PTT of 56.6 - 109.0 sec. INR Coag (PPP) [Relative time] 1.37 {INR} Invalid Interpretation Code [facility] Auto Coag Comment on above: Interpretive Data: I NR results are specifically intended to assess patients stabilized on long-term Anticoagulation therapy suggested INR s Less Intensive Anticoagulation 2.0 3.0 Conventional Range 3.0 4.5 PT Coag (PPP) [Time] 15.4 s High 9.4 - 1 2.5 second(s) [facility] Auto Coag Comment on above: Interpretive Data: [...] the same coagulation reagent and instrumentation as [facility]. Currently there are no coagulation studies available worldwide for children to 14 days, and no normal ranges. Consent for Treatmenton 11-12 Consent for Treatment [id number] .[id number] Normal [facility] Discharge Instructionson Discharge Instructions [id number]# 1.00TIFF Normal [facility] ED Clinical Summaryon 2023 ED Clinical Summary Normal [facility] ED Patient Education Noteon 11-22-2023 ED Patient Education Note Normal [facility] ED Patient Summaryon 024 ED Patient Summary Normal [facility] HEMATOLOGYOrdered By: SYSTEM SYSTEM on 11-22-2023 Basophils/100 WBC (Bld) 1.1 % Normal 0.0 - 2.0 % [facility] Basophils/Leukocytes Auto (Bld) [Pure # fraction] 0.1 E9/L Normal 0.0 - 0.2 E9/L [facility] Eosinophils (Bld) [#/Vol] 0.0 E9/L Normal 0.0 - 0.5 E9/L [facility] Eosinophils/100 WBC (Bld) 0.2 % Normal 0.0 - 8.0 % [facility] Erythrocyte distribution width (RBC) [Ratio] 14.7 % High 10.9 - 14.2 % [facility] Hematocrit (Bld) [Volume fraction] 42.0 % Normal 34.0 - 46.0 % [facility] Hemoglobin (Bld) [Mass/Vol] 13.9 g/dL Normal 12.0 - 16.0 gm/dL [facility] Lymphocytes (Bld) [#/Vol] 2.1 E9/L Normal 1.0 - 4.0 E9/L [facility] Lymphocytes/100 WBC (Bld) 25.6 % Normal 14.0 - 50.0 % [facility] MCH (RBC) [Entitic mass] 30.3 pg Normal 27.0 - 34.0 pg [facility] MCHC (RBC) [Mass/Vol] 33.1 g/dL Normal 31.4 - 36.0 gm/dL [facility] MCV (RBC) [Entitic vol] 91.5 fL Normal 80.0 - 100.0 fL [facility] Monocytes (Bld) [#/Vol] 0.5 E9/L Normal 0.2 - 1.0 E9/L [facility] Monocytes/100 WBC (Bld) 6.3 % Normal 4.0 - 14.0 % [facility] Neutrophils (Bld) [#/Vol] 5.5 E9/L Normal 2.0 - 7.5 E9/L [facility] Neutrophils/100 WBC (Bld) 66.8 % Normal 36.0 - 75.0 % [facility] Platelet mean volume (Bld) [Entitic vol] 8.3 fL Normal 6.4 - 10.8 fL [facility] Platelets (Bld) [#/Vol] 250.0 E9/L Normal 150.0 - 500.0 E9/L [facility] RBC (Bld) [#/Vol] 4.6 E12/L Normal 4.3 - 5.9 E12/L [facility] WBC corrected for nucl RBC Auto (Bld) [#/Vol] 8.3 E9/L Normal 4.0 - 11.0 E9/L [facility] Magnesiumon 11-22-2023 Magnesium [Mass/Vol] 2.0 mg/dL Normal 1.3-2.4 [facility] Comment on above: Performed By: #### 1 6320103, 05252455, 08461995, 4861946, 3410675, 35151380, 8764118 ####[facility] [address] [place] [address] PT & PTTon 11-22-2023 aPTT Coag (PPP) [Time] 41.3 second(s) High 25.1-36.5 [facility] Comment on above: Result Comment: Para [...] the same coagulation reagent and instrumentation as [facility]. Currently there are no coagulation studies available worldwide for children to 14 days, and no normal ranges. Heparin therapeutic range (represented by Anti-Factor Xa activity of 0.2 - 0.4 U/mL) corresponds to PTT of 56.6 - 109.0 sec. Performed By: #### 1 2180043, 08751631, 68970677, 9667381, 2299304, 18121784, 1909376 ####[facility] [address] [place] [address] INR Coag (PPP) [Relative time] 1.37 {INR} Invalid Interpretation Code [facility] Comment on above: Result Comment: INR results are specifically intended to assess patients stabilized on long-term Anticoagulation therapy suggested INR?s ?Less Intensive Anticoagulation? 2.0 ? 3.0Conventional Range 3.0 ? 4.5 Performed By: #### 1 3994043, 54327343, 45159280, 8876077, 7515382, 20560729, 4201873 ####[facility] [address] [place] [address] PT Coag (PPP) [Time] 15.4 second(s) High 9.4-12.5 [facility] Comment on above: Result Comment: 15 [...] the same coagulation reagent and instrumentation as [facility]. Currently there are no coagulation studies available worldwide for children to 14 days, and no normal ranges. Performed By: #### 1 [id number], [id number], [id number], 2398060, 1738937, [id number], [id number] ####[facility] [address] [place] [address] RAD - Preliminary Cat Scan R eporton 11-22-2023 RAD - Preliminary Cat Scan Report [id number]# 1.00TIFF Normal [facility] Troponin 0 Hr.on 11-22-2023 Troponin 12.30 pg/mL Normal 10.10-27.10 [facility] Comment on above: Result Comment: The 95% CI (Confidence Interval) PPV (Positive Predictive Value) for myocardial infarction in females is 38 pg/mL, in males 51 pg/mL. The results should be used in conjunction with clinical conditions of myocardial infarction.(Access High Sensitivity Troponin I Instructions For Use, Marlys Ariadne, March 2018) Performed By: #### 1 [id number], [id number], [id number], [id number], [id number], [id number], 0535477 ####[facility] [address] [place] [address] UA with Cult Rflxon 11-22-19 Bilirubin Ql (U) Negative Normal Negative [facility] Comment on above: Performed By: #### 2 611866, [id number] ####[facility] [address] [place] [address] Clarity (U) Clear Normal Clear [facility] Comment on above: Performed By: #### 2 743311, [id number] ####[facility] [address] [place] [address] Color (U) Colorless Abnormal Yellow [facility] Comment on above: Result Comment: Micr oscopic readings are only performed on those samples that meet specific criteria set forth by [facility]. Performed By: #### 2 655637, [id number] ####[facility] [address] [place] [address] Epithelial cells.squamous Auto (Urine sed) [#/Area] 0-2 Normal 0-2 [facility] Comment on above: Performed By: #### 2 057611, [id number] ####[facility] [address] [place] [address] Glucose Ql (U) Negative Normal Negative [facility] Comment on above: Performed By: #### 2 768385, [id number] ####[facility] [address] [place] [address] Hemoglobin Auto test strip (U) [Mass/Vol] Negative Normal Negative [facility] Comment on above: Performed By: #### 2 479519, [id number] ####[facility] [address] [place] [address] Ketones Auto test strip Ql (U) Negative Normal Negative [facility] Comment on above: Performed By: #### 2 474433, [id number] ####[facility] [address] [place] [address] Leukocyte esterase Auto test strip Ql (U) 75 Ghislaine/uL Abnormal Negative [facility] Comment on above: Performed By: #### 2 348008, [id number] ####[facility] [address] [place] [address] Mucus Auto Ql (U) Negative Normal Negative [facility] Comment on above: Performed By: #### 2 886883, [id number] ####[facility] [address] [place] [address] Nitrite Auto test strip Ql (U) Negative Normal Negative [facility] Comment on above: Performed By: #### 2 105299, [id number] ####[facility] [address] [place] [address] pH (U) 7.0 [pH] Invalid Interpretation Code 5.0-9.0 [facility] Comment on above: Performed By: #### 2 182863, [id number] ####[facility] [address] [place] [address] Protein Ql (U) Negative Normal Negative [facility] Comment on above: Performed By: #### 2 129502, [id number] ####[facility] [address] [place] [address] RBC Ql (U) 0-3 Normal 0-3 [facility] Comment on above: Performed By: #### 2 222076, [id number] ####[facility] [address] [place] [address] Specific gravity (U) [Rel density] 1.004 Invalid Interpretation Code 1.005-1.030 [facility] Comment on above: Performed By: #### 2 935053, [id number] ####[facility] [address] [place] [address] Urobilinogen (U) [Mass/Vol] Negative Normal Negative [facility] Comment on above: Performed By: #### 2 877978, [id number] ####[facility] [address] [place] [address] WBC Auto (Urine sed) [#/Area] 0-5 Normal 0-5 [facility] Comment on above: Performed By: #### 2 920281, [id number] ####[facility] [address] [place] [id number] Type of Urine collection method Clean Catch Normal [facility] Comment on above: Performed By: #### 2 721183, [id number] ####[facility] [address] [place] [id number] URINALYSISOrdered By: SYSTEM SYSTEM on 11-22-2023 Bilirubin Ql (U) Negative Normal Negativemg/ d L [facility] UA Auto SS Clarity (U) Clear (11/22/23 4:36 PM) Normal Clear [facility] UA Auto SS Color (U) Colorless 1 *ABN* (11/22/23 4:36 PM) Invalid Interpretation Code Yellow [facility] UA Auto SS Comment on above: Interpretive Data: M icroscopic readings are only performed on those samples that meet specific criteria set forth by [facility]. Epithelial cells.squamous Auto (Urine sed) [#/Area] 0-2 graded/HPF Normal 0-2graded/HP F [facility] UA Auto SS Glucose Ql (U) Negative Normal Negativemg/d L [facility] UA Auto SS Hemoglobin Auto test strip (U) [Mass/Vol] Negative Normal Negativemg/d L [facility] UA Auto SS Ketones Auto test strip Ql (U) Negative Normal Negativemg/d L [facility] UA Auto SS Leukocyte esterase Auto test strip Ql (U) 75 Ghislaine/uL Ghislaine/uL Invalid Interpretation Code NegativeLeu/ uL [facility] UA Auto SS Mucus Auto Ql (U) Negative Normal Negativegr ad ed/LPF [facility] UA Auto SS Nitrite Auto test strip Ql (U) Negative Normal Negativemg/d L [facility] UA Auto SS pH (U) 7.0 *NA* (11/22/23 4:36 PM) Invalid Interpretation Code 5.0 - 9.0 [facility] UA Auto SS Protein Ql (U) Negative Normal Negativemg/d L [facility] UA Auto SS RBC Ql (U) 0-3 graded/HPF Normal 0-3graded/HP F [facility] UA Auto SS Specific gravity (U) [Rel density] 1.004 *NA* (11/22/23 4:36 PM) Invalid Interpretation Code 1.005 - 1.030 [facility] UA Auto SS Urobilinogen (U) [Mass/Vol] Negative Normal Negativemg/d L [facility] UA Auto SS WBC Auto (Urine sed) [#/Area] 0-5 graded/HPF Normal 0-5graded/HP F [facility] UA Auto SS URINALYSISOrdered By: Sandhya Xavier on 11-22-2023 UA Spec Desc Clean Catch (11/22/23 4:36 PM) Normal [facility] UA Auto SS XR Abdomen 1 Viewon 11-22-19 XR Abdomen 1 View Normal [facility] eGFRon 11-22-2023 eGFR 58 mL/min/1.73 m2 Low >=59 [facility] Comment on above: Order Comment: Order added by Discern Expert. Performed By: #### 1 [id number], 36477518, 28774958, 7964623, 4044529, 23655926, 0006215 ####[facility] [address] [place] [address] Consent for Treatmenton Consent for Treatment [id number]#1 .00TIFF Normal [facility] US Abdomen, Limitedon 2023 US Abdomen, Limited Normal [facility] Physician Orderon 11-09-2023 Physician Order [id number]#1 .00TIFF Normal [facility] 36on 10-31-2023 36 Pt presented for her CPX test today stating that she had shortness of breath. She said she was started on Jardiance and Amiodarone and only took the Jardiance this morning. Pt stated that an hour after she took the Jardiance she started feeling short of breath and did not have symptoms yesterday in the office with Dr. Robins. She was able to talk today without visible shortness of breath and did not appear short of breath while doing her pulmonary function testing and resting ECG. She did have a blue tinge on the tips of her first finger and thumb of her right hand and she said that it felt like pins and needles . She attributed this to taking Jardiance. Both hands felt cool to the touch and the blue color went away prior to starting the exercise portion of the test. She was very compliant during the test and followed directions but was very agitated about having to take the medication. Patient asked me repeatedly throughout the test to let Dr. Robins know that she does not want to take the Jardiance because it makes her feel bad and short of breath. [facility] 36 I called patient megan leonard to tell her to just take amiodarone 200mg once daily per Dr. Robins. Her son in law got on the phone and continued to question the recommendations of her provider, as his mother supposedly from a drug interaction . I told both him and the patient that the pharmacist is not her treating physician. I told them both it was up to Harjit what she would like to do. Meanwhile, she said she was breathing just fine until she took Jardiance this morning. Now she's very SOB. Anything else you'd like for her? [facility] 36 Patient called stating her pharmacist advised her not to take amiodarone and digoxin. She states she is not going to take medications that interact with each other . Did you want her to continue amio load? Her dose of digoxin is very small. [facility] Telephoneon 10-31-2023 Telephone [id number] Harjit Asencio I 1950 F Date Provider Department Center 10/31/2023 NEREYDA PEDERSEN CECILE Davies Family History Problem Relation Age of Onset Coronary artery disease Mother Diabetes Mother Coronary artery disease Father Family Status - Relation Status Age at Mother Father [facility] Office Visiton 10-30-2023 Follow-up visit [id number] Harjit Asencio I 1950 F Date Provider Department Center 10/30/2023 NEREYDA PEDERSEN [facility] Family History Problem Relation Age of Onset Coronary artery disease Mother Diabetes Mother Coronary artery disease Father Family Status - Relation Status Age at Mother Father Level of Service:[address] [place] OFFICE/OUTPATIENT ESTABLISHED MOD MDM 30 MIN [facility] 36on 10-25-2023 36 Patient's son called back and asked if she can take the full 25mg tablet in the morning, instead of 12.5mg bid. He said he's keeping her awake during the night because of frequent urination. I told him that was fine to take the 25mg in the AM. I also confirmed her apt with Dr. Robins on 10/30/2023. [facility] 36on 10-24-2023 36 Called the patient and spoke with her and her son on the phone, informed her that her case was discussed with Dr. Collins and Dr. Walker. There is no need for her to come into the appointment today, our team recommended that patient would be better suited for MitraClip she is a high risk surgical candidate for mitral valve repair/replacement. Will defer her care to Dr. Robins and Cardiology Team. She has a follow-up appointment with Dr. Robins on 11/30 in [place]. Patient was stating that she is feeling more fatigued, informed patient to give Dr. Robins's office or if she is not feeling well to go to the hospital to be evaluated. Patient and son were agreeable with plan of care all questions and concerns answered appropriately. [facility] Telephoneon 10-24-2023 Telephone [id number] Harjit Asencio I 1950 F Date Provider Department Center 10/24/2023 [facility] Family History Problem Relation Age of Onset Coronary artery disease Mother Diabetes Mother Coronary artery disease Father Family Status - Relation Status Age at Mother Father [facility] Orders Onlyon 10-17-2023 Orders Only [id number] Harjit Asencio I 1950 F Date Provider Department Center 10/17/2023 [id number] BYRD [facility] Family History Problem Relation Age of Onset Coronary artery disease Mother Diabetes Mother Coronary artery disease Father Family Status - Relation Status Age at Mother Father Normal [facility] CNOVon 10-16-2023 CNOV Office Visit (UROSMN ) HARJIT ASENCIO I ([id number]) 1950 F Date Time Provider Department 10/16/23 8:00 AM RAPHAEL GOLDSMITH UROSMN During your visit today, we recorded the following information about you: Lia Ramirez CT 10/16/2023 8:32 AM Signed Actual procedure/procedure scheduled: Yes Performing provider/scheduled provider: Yes Patient was roomed in: Q9- 07 Statement Request Clerk offered:Patient declines Patient arrived in the room [...] 0 on a 0-10 pain scale. DAWSON Frar AMBULATORY PATIENT EDUCATION THE FOLLOWING WAS EVALUATED Motivation To Learn: Interested Family/Significant Other Support: Unable to assess - Family not present Cognitive Ability: Alert/Oriented Method of Instruction: Individual instruction Written instruction - handouts The Following Influencing Factors Were Barriers To This Education Session: None The Following Physical Limitations Were Barriers To This Education Session: None Instruction Provided To: Patient Wood Dowel Machine Operator Present: no Discipline: Nursing Learning Topic: SURVIVAL [...] performed due to it helping the symptoms [facility] NOTE / UNIVERSAL PROTOCOL / SAFETY CHECKLIST [...] October 16, 2023 Time: 11:18 AM Lia Ramirez, CT 10/16/2023 11:20 AM Signed UNIVERSAL PROTOCOL / SAFETY CHECKLIST Procedure to be Performed: cysto Sign In: A Moment of CARE was completed. Personnel directly involved with the procedure wore the appr (more content not included)... Normal [facility] CNPNon 10-16-2023 CNPN Telephone (CARCMN) HARJIT ASENCIO I ([id number]) 1950 F Date Time Provider Department 10/16/23 ALEA HARLEY CARCMN During your visit today, we recorded the following information about you: Junito Mendes 10/16/2023 4:06 PM Signed October 16, 2023 Patient Contact Number: [phone] Patient last seen within the last year: [...] the next three business days. Yes Kim Whtiten, RN 10/17/2023 4:[address] Harley aware. Kim Greenberg, RN Allergies As of Date: 10/16/2023 Noted Allergy [...] Visit: Patient Update [1234] Prescriptions as of 10/17/2023 - pantoprazole DR (PROTONIX) 40 mg tablet [...] Status:Closed by JUNITO MENDES on 10/16/23 Normal [facility] Office Visiton 10-16-2023 Follow-up visit [id number] Harjit Asencio I 1950 F Date Provider Department Center 10/16/2023 NEREYDA PEDERSEN [facility] Family History Problem Relation Age of Onset Coronary artery disease Mother Diabetes Mother Coronary artery disease Father Family Status - Relation Status Age at Mother Father Level of Service:[address] [place] OFFICE/OUTPATIENT [facility] 60 MINUTES Normal [facility] UA DIP, URINE (POC)on 2023 BILIRUBIN UA (POCT) Negative Negative [facility] CLARITY UA (POCT) Clear [facility] COLOR UA (POCT) Yellow [facility] GLUCOSE UA (POCT) Negative Negative mg/dL [facility] Hemoglobin Ql (U) Trace-lysed Abnormal Negative [facility] KETONE UA (POCT) Negative Negative mg/dL [facility] LEUKOCYTES UA (POCT) Large Abnormal Negative [facility] NITRITE UA (POCT) Negative Negative [facility] PH UA (POCT) 6.0 4.5 - 8.0 [facility] Protein Ql (U) Negative Negative mg/dL [facility] SPECIFIC GRAVITY UA (POCT) 1.010 1.005 - 1.030 [facility] UROBILINOGEN UA (POCT) 0.2 E.U./dL Giulia l E.U./dL [facility] 36on 10-11-2023 36 Patient is scheduled for testing at [facility]. Testing is scheduled for 10/18/23. 8:45a- PFT 10a- Carotid 1pm- TTE. Normal [facility] 37on 10-10-2023 37 We made the followin [...] test will need to be scheduled at [facility]. Please call them to schedule as soon as possible. We ordered blood work for you. You do not have to fast. Please have this done this week. You can have it done at [facility]. You have an appointment to see the site foreman, at [facility]. Dr. Robins. [phone]. He will look at your medications and discuss your heart valve. Normal [facility] Office Visiton 10-10-2023 Follow-up visit [id number] Harjit Asencio I 1950 F Date Provider Department Center 10/10/[id number] WALKER [facility]RA [facility] Family History Problem Relation Age of Onset Coronary artery disease Mother Diabetes Mother Coronary artery disease Father Family Status - Relation Status Age at Mother Father Level of Service:[address] [place] OFFICE/OP CONSLTJ NEW/EST PT HIGH MDM 55 MINUTES Reason for Visit and Comments: New Patient [632] - Mitral Valve Repair Consult [facility] Discharge Instructionson Discharge Instructions [id number]# 1.00TIFF [facility] ED Note-Physicianon 10-06-19 24 ED Note-Physician [facility] Comment on above: Result Comment: Elec tronically Signed By: Nica Knox PA-C\.br\Date and Time Signed: 10/05/23 21:57 EST\.br\Electronically Co-Signed By: Koby Masterson DO.br\Date and Time Co-Signed: 10/06/23 00:54 EST Consent for Treatmenton 09-15 Consent for Treatment [id number]#1 .00TIFF Normal [facility] ED Clinical Summaryon 2023 ED Clinical Summary Normal [facility] ED Patient Education Noteon 10-05-2023 ED Patient Education Note Normal [facility] ED Patient Summaryon 024 ED Patient Summary Normal [facility] CNPNon 10-02-2023 CNPN Telephone (CARCMN) HARJIT ASENCIO I ([id number]) 1950 F Date Time Provider Department 10/02/23 ALEA HARLEY CARCMN During your visit today, we recorded the following information about you: Junito Mendes 10/02/2023 9:41 AM Signed October 02, 2023 Patient Contact Number: [phone] Patient last seen within the last year: [...] that she was in the ED at [facility] for stomach pain and dizziness. She states that her carvedilol down to previous dose, chart review shows carvedilol 3.125mg. I will updated Adonay Rivas and Dr Harley. Harriet Albarado, Ana Ward APRN.CONTRACT ADMINISTRATIVE ASSISTANT 10/06/2023 2:59 PM Signed Noted. Will address [...] Status:Closed by JUNITO MENDES on 10/02/23 Normal [facility] Echocardiographyon 4 Echocardiography [id number] .00TIFF Normal [facility] Outside Cardiovascularon Outside Cardiovascular [id number]#1 .00TIFF Normal [facility] Outside Cardiovascular [id number]#1 .00TIFF Normal [facility] Outside Cardiovascular [id number] .00TIFF Normal [facility] Outside Operativeon 09-27-19 24 Outside Operative [id number]#1 .00TIFF Normal [facility] Outside Operative [id number]#1 .00TIFF Normal [facility] Outside Radiologyon 09-27-19 24 Outside Radiology [id number]#1 .00TIFF Normal [facility] Outside Radiology [id number] .00TIFF Normal [facility] CBC panel Auto (Bld)on 09-26 Erythrocyte distribution width (RBC) [Ratio] 13.2 % Normal 11.5-15.0 [facility] Comment on above: Order Comment: Speci men Type: BLOOD SPECIMENOrdering Facility: [facility] Address: [address] [place] [address] Performed By: #### 5 8410-2 ####[facility] LABIA [id number] [place] [address] [place] Hematocrit (Bld) [Volume fraction] 38.1 % Normal 36.0-46.0 [facility] Comment on above: Order Comment: Speci men Type: BLOOD SPECIMENOrdering Facility: [facility] Address: [address] [place] [address] Performed By: #### 5 8410-2 ####[facility] LABIA [id number] [place] [address] [place] Hemoglobin (Bld) [Mass/Vol] 12.2 g/dL Normal 11.5-15.5 [facility] Comment on above: Order Comment: Speci men Type: BLOOD SPECIMENOrdering Facility: [facility] Address: [address] [place] [address] Performed By: #### 5 8410-2 ####[facility] LABIA [id number] [place] [address] [place] MCH (RBC) [Entitic mass] 29.5 pg Normal 26.0-34.0 [facility] Comment on above: Order Comment: Speci men Type: BLOOD SPECIMENOrdering Facility: [facility] Address: [address] [place] [address] Performed By: #### 5 8410-2 ####[facility] LABIA [id number] [place] [address] [place] MCHC (RBC) [Mass/Vol] 32.0 g/dL Normal 30.5-36.0 [facility] Comment on above: Order Comment: Speci men Type: BLOOD SPECIMENOrdering Facility: [facility] Address: [address] [place] [address] Performed By: #### 5 8410-2 ####[facility] LABIA [id number] [place] [address] [place] MCV (RBC) [Entitic vol] 92.0 fL Normal 80.0-100.0 [facility] Comment on above: Order Comment: Speci men Type: BLOOD SPECIMENOrdering Facility: [facility] Address: [address] [place] [address] Performed By: #### 5 8410-2 ####[facility] LABIA [id number] [place] [address] [place] Nucleated RBC (Bld) [#/Vol] 10*3/uL Normal <0.01 [facility] Comment on above: Order Comment: Speci men Type: BLOOD SPECIMENOrdering Facility: [facility] Address: [address] [place] [address] Performed By: #### 5 8410-2 ####[facility] LABIA [id number] [place] [address] [place] Platelet mean volume (Bld) [Entitic vol] 10.5 fL Normal 9.0-12.7 [facility] Comment on above: Order Comment: Speci men Type: BLOOD SPECIMENOrdering Facility: [facility] Address: [address] [place] [address] Performed By: #### 5 8410-2 ####[facility] LABIA [id number] [place] [address] [place] Platelets (Bld) [#/Vol] 195 10*3/uL Normal 150-400 [facility] Comment on above: Order Comment: Speci men Type: BLOOD SPECIMENOrdering Facility: [facility] Address: [address] [place] [address] Performed By: #### 5 8410-2 ####[facility] LABCLIA [id number] [place] [address] [place] RBC (Bld) [#/Vol] 4.14 10*6/uL Normal 3.90-5.[address] [facility] Comment on above: Order Comment: Speci men Type: BLOOD SPECIMENOrdering Facility: [facility] Address: [address] [place] [address] Performed By: #### 5 8410-2 ####[facility] [facility] [id number] [address] [place] WBC (Bld) [#/Vol] 6.03 10*3/uL Normal 3.70-11.[address] [facility] Comment on above: Order Comment: Speci men Type: BLOOD SPECIMENOrdering Facility: [facility] Address: [address] [place] [address] Performed By: #### 5 8410-2 ####[facility] LABIA [id number] [place] [address] [place] [facility] CBC PNL BLD AUTOon 09-26 [facility] NRBC # BLD AUTO <0.01 [facility] PLATELET # BLD AUTO 195 [facility] PMV BLD AUTO 10.5 fL 9.0 - 12.7 fL [facility] WBC # BLD AUTO 6.03 [facility] Erythrocyte distribution width (RBC) [Ratio] 13.2 % 11.5 - 15.0 % [facility] Hematocrit (Bld) [Volume fraction] 38.1 % 36.0 - 46.0 % [facility] Hemoglobin (Bld) [Mass/Vol] 12.2 g/dL 11.5 - 15.5 g/dL [facility] MCH (RBC) [Entitic mass] 29.5 pg 26.0 - 34.0 pg [facility] MCHC (RBC) [Mass/Vol] 32.0 g/dL 30.5 - 36.0 g/dL [facility] MCV (RBC) [Entitic vol] 92.0 fL 80.0 - 100.0 fL [facility] RBC (Bld) [#/Vol] 4.14 10*6/uL 3.90 - 5.2 0 m/uL [facility] Specimen Type: BLOOD SPECIMEN Ordering Facility: [facility] Address: [facility] [place] [address] Original Ordering Provider: ALEA GUZMAN [facility] CNOVpattie 09-26-2023 CNOV Office Visit (UROLMN ) HARJIT ASENCIO I ([id number]) 1950 F Date Time Provider Department 09/26/23 2:40 PM RAPHAEL GOLDSMITH UROLMN During your visit today, we recorded the following information about you: Raphael Goldsmith MD 09/26/2023 4:38 PM Signed [facility] [...] patient with 45 cc residual volume remaining. MD notified. CARISSA Ferrell Referring Provider: RAPHAEL GOLDSMITH [[id number]] Allergies As of Date: 09/26/2023 Noted Allergy [...] type [N35.92] Severe protein-calorie malnutrition (HCC) [E43] Order(s):CYSTO.STEF O [[id number]] Order #: [id number] Prescriptions as of 09/26/2023 - pantoprazole DR (PROTONIX) 40 mg tablet Take 1 tablet by mouth once daily. - lisinopril (ZESTRIL) 10 mg tablet Take 0.5 tablets by mouth once daily. - carvedilol (COREG) 12.5 mg tablet Take 12.5 mg by mouth. - apixaban (ELIQUIS) 5 mg tab(s) Take 1 tablet by (more content not included)... Normal [facility] CNOV Office Visit (CARCMN ) HARJIT ASENCIO I ([id number]) 1950 F Date Time Provider Department 09/26/23 9:00 AM ANA RIVAS During your visit today, we recorded the following information about you: Pulse Respiration Blood pressure Weight 72/minute 20/minute 118/57 50.8 kg Height 1.651 m Ana Rivas APRN.CONTRACT ADMINISTRATIVE ASSISTANT 09/26/2023 10:41 AM Signed [facility] [place] [facility] Department of Cardiovascular Medicine SECTION OF CLINICAL CARDIOLOGY OUTPATIENT VISIT DATE September 26, 2023 OUTPATIENT VISIT TYPE ESTABLISHED PRIMARY CARE PHYSICIAN: Peggy Nazario MD [address] [place] [address] REFERRING PHYSICIAN: Dr. Alea Harley [address] [facility] [address] CHIEF COMPLAINT: Established Patient HISTORY OF PRESENT [...] better. Will review with Dr. Sorto in [facility]. He will be seeing her later today, final recommendations at that time. Interval Events since MICHAEL: Here today for routine follow up re: GDMT for HFrEF, mitral regurgitation, AF Recent local hospital admission re: allergic reaction to valsartan Evaluated by Dr. Sorto in [facility] re: candidacy for cardiac surgery. [...] with meals. (more content not included)... Normal [facility] Comprehensive metabolic 2000 panelon 09-26-2023 Albumin [Mass/Vol] 4.2 g/dL Normal 3.9-4.9 [facility] Comment on above: Order Comment: Speci men Type: BLOOD SPECIMEN [facility] Address: [address] [place] [address] Performed By: #### 1 9123-9, 47012-8 #### [facility] CLIA [id number] [address] [place] [address] [place] ALP [Catalytic activity/Vol] 57 U/L Normal 34-123 [facility] Comment on above: Order Comment: Speci men Type: BLOOD SPECIMEN [facility] Address: [address] [place] [address] Performed By: #### 1 9123-9, 94125-1 #### [facility] CLIA [id number] [address] [place] [address] [place] ALT [Catalytic activity/Vol] 36 U/L Normal 7-38 [facility] Comment on above: Order Comment: Speci men Type: BLOOD SPECIMEN [facility] Address: [address] [place] [address] Performed By: #### 1 9123-9, 75348-6 #### [facility] CLIA [id number] [address] [place] [address] [place] Anion gap [Moles/Vol] 10 mmol/L Normal 9-18 [facility] Comment on above: Order Comment: Speci men Type: BLOOD SPECIMEN [facility] Address: [address] [place] [address] Performed By: #### 1 9123-9, 34772-4 #### [facility] CLIA [id number] [address] [place] [address] [place] AST [Catalytic activity/Vol] 29 U/L Normal 13-35 [facility] Comment on above: Order Comment: Speci men Type: BLOOD SPECIMEN [facility] Address: [address] [place] [address] Performed By: #### 1 9123-9, 27838-5 #### [facility] CLIA [id number] [address] [place] [address] [place] Bilirubin [Mass/Vol] 0.6 mg/dL Normal 0.2-1.3 [facility] Comment on above: Order Comment: Speci men Type: BLOOD SPECIMEN [facility] Address: [address] [place] [address] Performed By: #### 1 9123-9, 51359-9 #### [facility] CLIA [id number] [address] [place] [address] [place] Calcium [Mass/Vol] 9.6 mg/dL Normal 8.5-10.2 [facility] Comment on above: Order Comment: Speci men Type: BLOOD SPECIMEN [facility] Address: [address] [place] [address] Performed By: #### 1 9123-9, #### [facility] CLIA [id number] [address] [place] [address] [place] Chloride [Moles/Vol] 100 mmol/L Normal 97-105 [facility] Comment on above: Order Comment: Speci men Type: BLOOD SPECIMEN [facility] Address: [address] [place] [address] Performed By: #### 1 9123-9, 10561-4 #### [facility] CLIA [id number] [address] [place] [id number] [place] CO2 [Moles/Vol] 29 mmol/L Normal 22-30 [facility] Comment on above: Order Comment: Speci men Type: BLOOD SPECIMEN [facility] Address: [address] [place] [address] Performed By: #### 1 9123-9, #### [facility] CLIA [id number] [address] [place] [address] [place] Creatinine [Mass/Vol] 0.82 mg/dL Normal 0.58-0.96 [facility] Comment on above: Order Comment: Speci men Type: BLOOD SPECIMEN [facility] Address: [address] [place] [address] Performed By: #### 1 9123-9, #### [facility] CLIA [id number] [address] [place] [address] [place] Creatinine and Glomerular filtration rate.predicted panel (S/P/Bld) 75 mL/min/1.73m??? Normal >=60 [facility] Comment on above: Order Comment: Speci men Type: BLOOD SPECIMEN [facility] Address: [address] [place] [address] Result Comment: Shelley mated Glomerular Filtration Rate [...] actual GFR. Performed By: #### 1 9123-9, #### [facility] CLIA [id number] [address] [place] [address] [place] Glucose [Mass/Vol] 129 mg/dL High 74-99 [facility] Comment on above: Order Comment: Speci men Type: BLOOD SPECIMEN [facility] Address: [address] [place] [address] Result Comment: The [place] Diabetes Association (ADA) provides guidance for cutoff [...] Standards of Medical Care in Diabetes 2016, [place] Diabetes Association. Diabetes Care. 2016.39(Suppl 1). Performed By: #### 1 9123-9, #### [facility] CLIA [id number] [address] [place] [address] [place] Potassium [Moles/Vol] 4.3 mmol/L Normal 3.7-5.1 [facility] Comment on above: Order Comment: Speci men Type: BLOOD SPECIMEN [facility] Address: [address] [place] [address] Performed By: #### 1 239, #### [facility] CLIA [id number] [address] [place] [address] [place] Protein [Mass/Vol] 6.4 g/dL Normal 6.3-8.0 [facility] Comment on above: Order Comment: Speci men Type: BLOOD SPECIMEN [facility] Address: [address] [place] [address] Performed By: #### 1 239, #### [facility] CLIA [id number] [address] [place] [id number] [place] Sodium [Moles/Vol] 139 mmol/L Normal 136-144 [facility] Comment on above: Order Comment: Speci men Type: BLOOD SPECIMEN [facility] Address: [address] [place] [address] Performed By: #### 1 239, #### [facility] CLIA [id number] [address] [place] [address] [place] Urea nitrogen [Mass/Vol] 15 mg/dL Normal 7-21 [facility] Comment on above: Order Comment: Speci men Type: BLOOD SPECIMEN [facility] Address: [address] [place] [address] Performed By: #### 1 9123-9, 74114-4 #### [facility] IA [id number] [facility] [place] [address] [place] [id number] 09-26-2023 ECG01 Ventricular Rate : 6 2 BPM Atrial Rate : 62 BPM P-R Interval : 112 ms QRS Duration : 96 ms Q-T Interval : 388 ms QTC Calculation(Bazett) : 393 ms Calculated P [place] : 80 degrees Calculated R [place] : 79 degrees Calculated T [place] : 26 degrees NORMAL SINUS RHYTHM NORMAL ECG Confirmed by MD BERMUDEZ HEBA ([id number]) on 10/03/2023 6:33:53 PM NAME : HARJIT ASENCIO PID : [id number] : 1950 Gender : Female Race : ORD : Procedure Date : Sep 26 2023 09:27:55 Edit Date : Oct 03 2023 18:33:54 Diagnosis: NORMAL SINUS RHYTHM NORMAL ECG Confirmed by MD BERMUDEZ HEBA ([id number]) on 10/03/2023 6:33:53 PM Test Reason : Location : [address] [place] [address] Overread By : MD BERMUDEZ HEBA Edited By : MD BERMUDEZ HEBA Referred By : , Acquired by : , Normal [facility] ECG01 Ventricular Rate : 6 7 BPM Atrial Rate : 67 BPM P-R Interval : 114 ms QRS Duration : 96 ms Q-T Interval : 380 ms QTC Calculation(Bazett) : 401 ms Calculated P [place] : 83 degrees Calculated R [place] : 79 degrees Calculated T [place] : 24 degrees SINUS RHYTHM WITH OCCASIONAL PREMATURE VENTRICULAR COMPLEXES INFERIOR T WAVE ABNORMALITY ABNORMAL ECG Confirmed by MD BERMUDEZ HEBA ([id number]) on 10/03/2023 2:34:05 PM NAME : HARJIT ASENCIO PID : [id number] : 1950 Gender : Female Race : ORD : Procedure Date : Sep 26 2023 09:27:28 Edit Date : Oct 03 2023 14:34:07 Diagnosis: SINUS RHYTHM WITH OCCASIONAL PREMATURE VENTRICULAR COMPLEXES INFERIOR T WAVE ABNORMALITY ABNORMAL ECG Confirmed by MD BERMUDEZ HEBA ([id number]) on 10/03/2023 2:34:05 PM Test Reason : Location : [address] [place] [address] Overread By : MD BERMUDEZ HEBA Edited By : MD BERMUDEZ HEBA Referred By : , Acquired by : , Normal [facility] Natriuretic peptide.B prohormone N-Terminal [Mass/Vol] 2047 pg/mL High <450 [facility] Comment on above: Order Comment: Speci men Type: BLOOD SPECIMEN [facility] Address: [address] [place] [address] Performed By: #### 1 9123-9, 97168-3 #### [facility] CLIA [id number] [address] [place] [address] [place] URINALYSIS, REFLEX MICROSCOP ICon 09-26-2023 Bacteria LM.HPF (Urine sed) [#/Area] Few Abnormal None Seen /HPF [facility] Bilirubin Ql (U) Negative Negative [facility] Clarity (Unsp spec) Cloudy Abnormal Clear [facility] Color (U) Yellow Yellow [facility] Epithelial cells LM.HPF (Urine sed) [#/Area] Moderate [facility] Epithelial cells LM.HPF (Urine sed) [#/Area] Few Abnormal None Seen /HPF [facility] Glucose Test strip (U) [Mass/Vol] Negative Trace, Negative [facility] Hemoglobin Ql (U) 1+ Abnormal Negative, Trace [facility] Ketones Ql (U) Negative Negative, Trace [facility] Leukocyte esterase Test strip Ql (U) 500 Ghislaine/uL Abnormal Negative, 25 Ghislaine/uL [facility] Nitrite Ql (U) Negative Negative [facility] pH (U) 6.0 [pH] 5.0 - 8.0 [facility] Protein (U) [Mass/Vol] Negative Trace , Negative [facility] RBC LM.HPF (Urine sed) [#/Area] 3-5 /HPF Abnormal 0-3 /HPF [facility] Specific gravity (U) [Rel density] 1.013 1.005 - 1.030 [facility] Urobilinogen Ql (U) Normal Normal [facility] WBC LM.HPF (Urine sed) [#/Area] /[HPF] Abnormal 0-5 /HPF [facility] Bacteria LM.HPF (Urine sed) [#/Area] Few Abnormal None Seen [facility] Comment on above: Order Comment: Speci men Type: BLOOD SPECIMEN [facility] Address: [address] [place] [address] Performed By: #### 1 23-9, #### [facility] CLIA [id number] [address] [place] [address] [place] Bilirubin Ql (U) Negative Normal Negative [facility] Comment on above: Order Comment: Speci men Type: BLOOD SPECIMEN [facility] Address: [address] [place] [address] Performed By: #### 1 239, #### [facility] CLIA [id number] [address] [place] [address] [place] Clarity (Unsp spec) Cloudy Abnormal Clear [facility] Comment on above: Order Comment: Speci men Type: BLOOD SPECIMEN [facility] Address: [address] [place] [address] Performed By: #### 1 239, #### [facility] CLIA [id number] [address] [place] [address] [place] Color (U) Yellow Normal Yellow [facility] Comment on above: Order Comment: Speci men Type: BLOOD SPECIMEN [facility] Address: [address] [place] [address] Performed By: #### 1 23-9, #### [facility] CLIA [id number] [address] [place] [address] [place] Epithelial cells LM.HPF (Urine sed) [#/Area] Moderate Normal [facility] Comment on above: Order Comment: Speci men Type: BLOOD SPECIMEN [facility]: [facility] Address: [address] [place] [address] Result Comment: Few Performed By: #### 1 9123-9, #### [facility] CLIA [id number] [address] [place] [address] [place] Glucose Test strip (U) [Mass/Vol] Negative Normal Trace, Negative [facility] Comment on above: Order Comment: Speci men Type: BLOOD SPECIMEN [facility] Address: [address] [place] [address] Performed By: #### 1 239, #### [facility] CLIA [id number] [address] [place] [address] [place] Hemoglobin Ql (U) 1+ Abnormal Negative, Trace [facility] Comment on above: Order Comment: Speci men Type: BLOOD SPECIMEN [facility] Address: [address] [place] [address] Performed By: #### 1 239, #### [facility] CLIA [id number] [address] [place] [address] [place] Ketones Ql (U) Negative Normal Negative, Trace [facility] Comment on above: Order Comment: Speci men Type: BLOOD SPECIMEN [facility] Address: [address] [place] [address] Performed By: #### 1 9123-9, #### [facility] CLIA [id number] [address] [place] [address] [place] Leukocyte esterase Test strip Ql (U) 500 Ghislaine/uL Abnormal Negative, 25 Ghislaine/uL [facility] Comment on above: Order Comment: Speci men Type: BLOOD SPECIMEN [facility] Address: [address] [place] [address] Performed By: #### 1 9123-9, 81105-6 #### [facility] CLIA [id number] [address] [place] [address] [place] Nitrite Ql (U) Negative Normal Negative [facility] Comment on above: Order Comment: Speci men Type: BLOOD SPECIMEN [facility] Address: [address] [place] [address] Performed By: #### 1 9123-9, #### [facility] CLIA [id number] [address] [place] [address] [place] pH (U) 6.0 [pH] Normal 5.0-8.0 [facility] Comment on above: Order Comment: Speci men Type: BLOOD SPECIMEN [facility] Address: [address] [place] [address] Performed By: #### 1 9123-9, #### [facility] CLIA [id number] [address] [place] [address] [place] Protein (U) [Mass/Vol] Negative Normal Trace , Negative [facility] Comment on above: Order Comment: Speci men Type: BLOOD SPECIMEN [facility] Address: [address] [place] [address] Performed By: #### 1 9123-9, 08409-9 #### [facility] CLIA [id number] [address] [place] [address] [place] RBC LM.HPF (Urine sed) [#/Area] 3-5 /HPF Abnormal 0-3 /HPF [facility] Comment on above: Order Comment: Speci men Type: BLOOD SPECIMEN Order[facility]: [facility] Address: [address] [place] [address] Performed By: #### 1 9123-9, 13856-8 #### [facility] CLIA [id number] [address] [place] [address] [place] Specific gravity (U) [Rel density] 1.013 Normal 1.005-1.030 [facility] Comment on above: Order Comment: Speci men Type: BLOOD SPECIMEN Order[facility] Facility: [facility] Address: [place] [address] Performed By: #### 1 9123-9, #### [facility] CLIA [id number] [facility] [place] [address] [place] Urobilinogen Ql (U) Normal Normal Normal [facility] Comment on above: Order Comment: Speci men Type: BLOOD SPECIMEN Order[facility] Facility: [facility] Address: [place] [address] Performed By: #### 1 9123-9, #### [facility] CLIA [id number] [facility] [place] [address] [place] WBC LM.HPF (Urine sed) [#/Area] /[HPF] Abnormal 0-5 /HPF [facility] Comment on above: Order Comment: Speci men Type: BLOOD SPECIMEN Order[facility]: [facility] Address: [address] [place] [address] Performed By: #### 1 9123-9, #### [facility] CLIA [id number] [facility] [address] [place] Samia 09-21-2023 CNPN Telephone (CARCMN) HARJIT ASENCIO I ([id number]) 1950 F Date Time Provider Department 09/21/23 ALEA HARLEY CARCHAIM During your visit today, we recorded the following information about you: Junito Mnedes 09/21/2023 3:40 PM Signed September 21, 2023 Patient Contact Number: [phone] Patient last seen within the last year: [...] Work on setting her up with an ADULT CARE MANAGER and Dr. Harley would like to be in for the appointment. Next Monday. ROCÍO Mckeon Annette 09/22/2023 1:24 PM Signed Received call from Cardiothoracic surgery office. Patient contacted his office to discuss that she was unhappy with the medication and she would like someone to call her back to discuss. Fatou Ricci Binding Nicker September 22, 2023 1:23 PM Kim Greenberg RN 09/22/2023 2:04 PM Signed Called patient and she told me she cannot come on the as she does not have a car. She said that she can come on the as she has a urology appointment and her son is bringing her. She said she is going to live with her daughter in [place] for a few months and she wants [...] can get here. ROCÍO Montes De Oca Amy RN 09/22/2023 2:53 PM Signed Patient called [...] that he wants her to see a ADULT CARE MANAGER or she will have to get a [...] regurgitation [I36*12 (more content not included)... Normal [facility] BMPon 09-17-2023 Anion gap [Moles/Vol] 9 mmol/L Normal 6-16 [facility] Comment on above: Performed By: #### 2 804891, 8517417, 61222051, 16574358, [id number] ####[facility] [address] [place] [address] BUN/Creat Ratio 24 No Units High 10-20 [facility] Comment on above: Performed By: #### 2 503245, 6007733, 30236901, 49078784, [id number] ####[facility] [address] [place] [address] Calcium [Mass/Vol] 9.1 mg/dL Normal 8.9-11.1 [facility] Comment on above: Performed By: #### 2 846566, 7616539, 36807270, 32752081, 08485188 ####[facility] [address] [place] [address] Chloride [Moles/Vol] 105 mmol/L Normal 101-111 [facility] Comment on above: Performed By: #### 2 063407, 1825817, 92852519, 11286558, 65766268 ####[facility] [address] [place] [address] CO2 [Moles/Vol] 28 mmol/L Normal 21-31 [facility] Comment on above: Performed By: #### 2 548995, 4766800, 90370654, 52391797, 72060370 ####[facility] [address] [place] [address] Creatinine [Mass/Vol] 0.7 mg/dL Normal 0.5-1.3 [facility] Comment on above: Performed By: #### 2 212006, 8669019, 98878406, 48785198, 81076929 ####[facility] [address] [place] [address] Glucose [Mass/Vol] 83 mg/dL Normal 55-199 [facility] Comment on above: Performed By: #### 2 995970, 0617895, 83818097, 46241295, 77941427 ####[facility] [address] [place] [address] Potassium [Moles/Vol] 4.0 mmol/L Normal 3.5-5.3 [facility] Comment on above: Performed By: #### 2 773437, 9044335, 17174932, 58485675, 12351234 ####[facility] [address] [place] [address] Sodium [Moles/Vol] 138 mmol/L Normal 135-145 [facility] Comment on above: Performed By: #### 2 557818, 9673919, 99735939, 38634499, 96221321 ####[facility] [address] [place] [address] Urea nitrogen [Mass/Vol] 17 mg/dL Normal 5-21 [facility] Comment on above: Performed By: #### 2 835491, 0285016, 63170280, 48857292, 04657727 ####[place] [address] CBC w/ Auto Diffon 4 Basophil Absolute 0.1 E9/L Normal 0.0-0.2 [facility] Comment on above: Performed By: #### 2 498303, 4385232, 84864389, [id number], 03285315 ####[address] [address] Basophils/100 WBC (Bld) 0.9 % Normal 0.0-2.0 [facility] Comment on above: Performed By: #### 2 830591, 3976559, 95292225, 07443691, 85348497 ####[address] [address] Eos Absolute 0.0 E9/L Normal 0.0-0.5 [facility] Comment on above: Performed By: #### 2 070249, 3719802, 94552878, 97628643, 29827290 ####[address] [address] Eosinophils/100 WBC (Bld) 0.7 % Normal 0.0-8.0 [facility] Comment on above: Performed By: #### 2 594597, 9601830, 01863542, 47096137, 32368799 ####[address] [address] Erythrocyte distribution width (RBC) [Ratio] 14.1 % Normal 10.9-14.2 [facility] Comment on above: Performed By: #### 2 435283, 8522891, 90185287, 02298381, 19849172 ####[address] [address] Hematocrit (Bld) [Volume fraction] 36.0 % Normal 34.0-46.0 [facility] Comment on above: Performed By: #### 2 404683, 9103532, 12570409, 81446409, 48554770 ####[address] [place] [address] Hemoglobin (Bld) [Mass/Vol] 12.2 g/dL Normal 12.0-16.0 [facility] Comment on above: Performed By: #### 2 462041, 6730483, 57119141, 71961906, 95126717 ####[address] [address] Lymph Absolute 2.1 E9/L Normal 1.0-4.0 [facility] Comment on above: Performed By: #### 2 810967, 6821031, 16828027, 79941748, 38542546 ####[address] [address] Lymphocytes/100 WBC (Bld) 31.6 % Normal 14.0-50.0 [facility] Comment on above: Performed By: #### 2 477326, 8618756, 24042437, 57753456, 35280555 ####[address] [address] MCH (RBC) [Entitic mass] 30.0 pg Normal 27.0-34.0 [facility] Comment on above: Performed By: #### 2 782706, 5180682, 55894085, 16982703, 70936038 ####[address] [address] MCHC (RBC) [Mass/Vol] 34.1 g/dL Normal 31.4-36.0 [facility] Comment on above: Performed By: #### 2 257436, 6986616, 81635401, 84415678, 38106190 ####[address] [address] MCV (RBC) [Entitic vol] 88.0 fL Normal 80.0-100.0 [facility] Comment on above: Performed By: #### 2 188209, 3200796, 91329831, 20350385, 92035852 ####[address] [place] [address] Knott Absolute 0.6 E9/L Normal 0.2-1.0 [facility] Comment on above: Performed By: #### 2 173202, 4610830, 76171592, 74625545, 35808469 ####[address] [address] Monocytes/100 WBC (Bld) 9.5 % Normal 4.0-14.0 [facility] Comment on above: Performed By: #### 2 874457, 0298667, 90016819, 11309964, 43051232 ####[address] [address] Neutro Absolute 3.8 E9/L Normal 2.0-7.5 [facility] Comment on above: Performed By: #### 2 239205, 8544311, 30659914, 54356502, 44937823 ####[facility] [address] [place] [address] Neutro Auto 57.3 % Normal 36.0-75.0 [facility] Comment on above: Performed By: #### 2 153821, 8293815, 27175741, 21781495, 36269179 ####[facility] [address] [place] [address] Platelet 186.0 E9/L Normal 150.0-500.0 [facility] Comment on above: Performed By: #### 2 955626, 6661561, 34999431, 76448469, 34670055 ####[facility] [address] [place] [address] Platelet mean volume (Bld) [Entitic vol] 8.0 fL Normal 6.4-10.8 [facility] Comment on above: Performed By: #### 2 825844, 7189076, 42567948, 57252250, 49192136 ####[address] [address] RBC 4.1 E12/L Low 4.3-5.9 [facility] Comment on above: Performed By: #### 2 842445, 2542692, 30026369, 95827619, 69883155 ####[facility] [address] [place] [address] WBC 6.6 E9/L Normal 4.0-11.0 [facility] Comment on above: Performed By: #### 2 254451, 7831139, 96017438, 95073061, 15384941 ####[facility] [address] [place] [address] CHEMISTRYOrdered By: SYSTEM SYSTEM on 09-17-2023 Anion [...] Sensitivity Troponin I Instructions For Use, Marlys Attica, March 2018) Urea nitrogen [Mass/Vol] 17 mg/dL Normal 5 - 21 mg/dL Remisol Chem Urea nitrogen/Creatinine [Mass ratio] 24 mg/mg High 10 - 20 Remisol Chem CHEMISTRYOrdered By: Lab ROP User on 09-17-2023 Glucose [Mass/Vol] 79 mg/dL Normal 55 - 99 mg/dL [facility] POC Subsection Comment on above: Result Comment: Neli cain RN/ POC Device SN [id number] Invalid Interpretation Code FT POC Subsection POC User ID [id number] 1 Invalid Interpretation Code [facility] POC Subsection POC Username ZIGGY HOLGUIN Invalid Interpretation Code [facility] POC Subsection CNPNon 09-17-2023 [facility] HARJIT ASENCIO I ([id number]) 1950 F Date Time Provider Department 09/17/23 [...] take that medication (valsartan) again. Carmina Mcmahan APRN.CONTRACT ADMINISTRATIVE ASSISTANT HVTI SOULEYMANE Rotary Shear Operator 09/17/2023 6:29 AM Allergies As of [...] Encounter Status:Closed by CARMINA MCMAHAN on 09/17/23 [facility] ([facility]) ELIFHARJIT Eliseo ([id number]) 1950 F Date Time Provider Department 09/17/23 CARMINA MCMAHAN During your visit today, we recorded the following information about you: Carmina Mcmahan APRN.CONTRACT ADMINISTRATIVE ASSISTANT 09/17/2023 4:29 AM Signed [facility] Center Inbound Phone Encounter DATE of SERVICE: 09/17/2023 TIME of SERVICE: 4:21 AM Status: Urgent Service/Provider: Clinical Cardiology Alea Harley MD Reason for call: Medication Issue/Question Contact information: [phone] Resolution: Reinforced education and Sent to [facility] Comments: Patient calling after waking up with [...] is another medication to try. Carmina Mcmahan APRN.CONTRACT ADMINISTRATIVE ASSISTANT HVTI SOULEYMANE Rotary Shear Operator Date of Resolution: 09/17/2023 Time of [...] Status:Closed by CARMINA MCMAHAN on 09/17/23 Normal [facility] COAGULATIONOrdered By: Han Frost on 09-17-2023 aPTT Coag (PPP) [Time] 38.2 s High 25.1 - 36.5 second(s) [facility] Auto Coag Comment on above: Interpretive Data: [...] the same coagulation reagent and instrumentation as [facility]. Currently there are no coagulation studies available worldwide for children to 14 days, and no normal ranges. Heparin therapeutic range (represented by Anti-Factor Xa activity of 0.2 - 0.4 U/mL) corresponds to PTT of 56.6 - 109.0 sec. INR Coag (PPP) [Relative time] 1.4 {INR} Invalid Interpretation Code [facility] Auto Coag Comment on above: Interpretive Data: I NR results are specifically intended to assess patients stabilized on long-term Anticoagulation therapy suggested INR s Less Intensive Anticoagulation 2.0 3.0 Conventional Range 3.0 4.5 PT Coag (PPP) [Time] 16.4 s High 9.4 - 1 2.5 second(s) [facility] Auto Coag Comment on above: Interpretive Data: [...] the same coagulation reagent and instrumentation as [facility]. Currently there are no coagulation studies available worldwide for children to 14 days, and no normal ranges. Capillary Glucose POCon Glucose [Mass/Vol] 79 mg/dL Normal 55-99 [facility] Comment on above: Result Comment: Neli cain RN/ Performed By: #### 2 [id number] ####[facility] [address] [place] [address] Consent for Treatmenton Consent for Treatment [id number]#1 .00TIFF Normal [facility] Discharge Instructionson Discharge Instructions [id number]# 1.00TIFF Normal [facility] ED Clinical Summaryon 2023 ED Clinical Summary Normal [facility] ED Note-Physicianon 09-17-19 ED Note-Physician Normal [facility] Comment on above: Result Comment: Elec tronically Signed By: Parveen Ayers DO\.br\Date and Time Signed: 09/17/23 06:06 EST ED Patient Education Noteon 09-17-2023 ED Patient Education Note Normal [facility] ED Patient Summaryon 024 ED Patient Summary Normal [facility] HEMATOLOGYOrdered By: SYSTEM SYSTEM on 09-17-2023 [...] Normal 80.0 - 100.0 fL Remisol Heme Knott Absolute 0.6 E9/L Normal 0.2 - 1.0 [...] Remisol Heme Monitor Recordon 09-17-2023 Monitor Record [id number]# 1.00TIFF Normal [facility] PT & PTTon 09-17-2023 aPTT Coag (PPP) [Time] 38.2 second(s) High 25.1-36.5 [facility] Comment on above: Result Comment: Para [...] the same coagulation reagent and instrumentation as [facility]. Currently there are no coagulation studies available worldwide for children to 14 days, and no normal ranges. Heparin therapeutic range (represented by Anti-Factor Xa activity of 0.2 - 0.4 U/mL) corresponds to PTT of 56.6 - 109.0 sec. Performed By: #### 2 526624, 4377965, 60450217, 33441738, 99008788 ####[facility] [address] [place] [address] INR Coag (PPP) [Relative time] 1.4 {INR} Invalid Interpretation Code [facility] Comment on above: Result Comment: INR results are specifically intended to assess patients stabilized on long-term Anticoagulation therapy suggested INR?s ?Less Intensive Anticoagulation? 2.0 ? 3.0Conventional Range 3.0 ? 4.5 Performed By: #### 2 418127, 0456368, 05181581, 23580261, 57160135 ####[facility] [address] [place] [address] PT Coag (PPP) [Time] 16.4 second(s) High 9.4-12.5 [facility] Comment on above: Result Comment: 15 [...] the same coagulation reagent and instrumentation as [facility]. Currently there are no coagulation studies available worldwide for children to 14 days, and no normal ranges. Performed By: #### 2 780308, 4883327, 78674111, 04032755, 64013844 ####[facility] [address] [place] [address] Troponin 0 Hr.on 09-17-2023 Troponin 11.70 pg/mL Normal 10.10-27.10 [facility] Comment on above: Result Comment: The 95% CI (Confidence Interval) PPV (Positive Predictive Value) for myocardial infarction in females is 38 pg/mL, in males 51 pg/mL. The results should be used in conjunction with clinical conditions of myocardial infarction.(Access High Sensitivity Troponin I Instructions For Use, Marlys Ariadne, March 2018) Performed By: #### 2 003135, 3768368, 18174101, 97447227, 23639799 ####[facility] [address] [place] [address] XR Chest Single Viewon 09-17 XR Chest Single View Normal [facility] eGFRon 09-17-2023 eGFR 90 mL/min/1.73 m2 Normal >=59 [facility] Comment on above: Order Comment: Order added by Discern Expert. Performed By: #### 2 475230, 8338464, 03069943, 74572285, 78256772 ####[facility] [address] [place] [address] BMPon 09-12-2023 Anion gap [Moles/Vol] 12 mmol/L Normal 6-16 [facility] Comment on above: Performed By: #### 1 1249328, 5724802, 2469162, 05270257 ####[facility] [address] [place] [address] BUN/Creat Ratio 27 No Units High 10-20 [facility] Comment on above: Performed By: #### 1 6814362, 5946210, 6206111, 72341946 ####[facility] [address] [place] [address] Calcium [Mass/Vol] 9.5 mg/dL Normal 8.9-11.1 [facility] Comment on above: Performed By: #### 1 8463010, 2934113, 7212101, 39714362 ####[facility] [address] [place] [address] Chloride [Moles/Vol] 101 mmol/L Normal 101-111 [facility] Comment on above: Performed By: #### 1 7130199, 4830064, 5352036, 14123320 ####[facility] [address] [place] [address] CO2 [Moles/Vol] 27 mmol/L Normal 21-31 [facility] Comment on above: Performed By: #### 1 8084356, 9492767, 8204942, 56435462 ####[facility] [address] [place] [address] Creatinine [Mass/Vol] 0.9 mg/dL Normal 0.5-1.3 [facility] Comment on above: Performed By: #### 1 1185477, 5130219, 6257373, 55949099 ####[facility] [address] [place] [address] Glucose [Mass/Vol] 87 mg/dL Normal 55-199 [facility] Comment on above: Performed By: #### 1 3668841, 5087640, 6577057, 19038176 ####[facility] [address] [place] [address] Potassium [Moles/Vol] 4.9 mmol/L Normal 3.5-5.3 [facility] Comment on above: Performed By: #### 1 3445579, 8809888, 8939439, 83907202 ####[facility] [address] [place] [address] Sodium [Moles/Vol] 135 mmol/L Normal 135-145 [facility] Comment on above: Performed By: #### 1 8825367, 5587481, 2247338, 25138319 ####[address] [address] Urea nitrogen [Mass/Vol] 24 mg/dL High 5-21 [facility] Comment on above: Performed By: #### 1 1263061, 7185042, 4844464, 12141616 ####[address] [address] CBC w/ Auto Diffon 4 Basophil Absolute 0.1 E9/L Normal 0.0-0.2 [facility] Comment on above: Performed By: #### 1 3393970, 3925159, 8165959, 09960240 ####[address] [address] Basophils/100 WBC (Bld) 1.1 % Normal 0.0-2.0 [facility] Comment on above: Performed By: #### 1 6144511, 0187269, 8707341, 13226826 ####[address] [address] Eos Absolute 0.1 E9/L Normal 0.0-0.5 [facility] Comment on above: Performed By: #### 1 4242681, 1339831, 5409237, 24502356 ####[address] [address] Eosinophils/100 WBC (Bld) 1.2 % Normal 0.0-8.0 [facility] Comment on above: Performed By: #### 1 4418842, 9460860, 4549116, 04603758 ####[address] [address] Erythrocyte distribution width (RBC) [Ratio] 13.7 % Normal 10.9-14.2 [facility] Comment on above: Performed By: #### 1 9162353, 4126276, 7414804, 33215040 ####[address] [address] Hematocrit (Bld) [Volume fraction] 41.0 % Normal 34.0-46.0 [facility] Comment on above: Performed By: #### 1 8795119, 3421870, 2275362, 45149798 ####[address] [address] Hemoglobin (Bld) [Mass/Vol] 13.4 g/dL Normal 12.0-16.0 [facility] Comment on above: Performed By: #### 1 8899485, 5264792, 1784947, 39457694 ####[address] [address] Lymph Absolute 1.9 E9/L Normal 1.0-4.0 [facility] Comment on above: Performed By: #### 1 2555336, 4843346, 0593461, 71896460 ####[place] [address]505657 Lymphocytes/100 WBC (Bld) 25.9 % Normal 14.0-50.0 [facility] Comment on above: Performed By: #### 1 0852417, 0078774, 2301255, 84440052 ####[address] [address] MCH (RBC) [Entitic mass] 29.5 pg Normal 27.0-34.0 [facility] Comment on above: Performed By: #### 1 5627553, 0468613, 7547204, 81559383 ####[address] [address] MCHC (RBC) [Mass/Vol] 32.9 g/dL Normal 31.4-36.0 [facility] Comment on above: Performed By: #### 1 0853358, 1527398, 7441642, 53449893 ####[address] [address] MCV (RBC) [Entitic vol] 89.6 fL Normal 80.0-100.0 [facility] Comment on above: Performed By: #### 1 6493447, 6319939, 0292716, 90052131 ####[place] [address] [place] [address] Knott Absolute 0.6 E9/L Normal 0.2-1.0 [facility] Comment on above: Performed By: #### 1 7280126, 0637558, 7809074, 20311379 ####[address] [address] Monocytes/100 WBC (Bld) 8.0 % Normal 4.0-14.0 [facility] Comment on above: Performed By: #### 1 2384551, 0297282, 7115540, 54820151 ####[address] [address] Neutro Absolute 4.7 E9/L Normal 2.0-7.5 [facility] Comment on above: Performed By: #### 1 7792918, 2431471, 8819384, 08070953 ####[address] [address] Neutro Auto 63.8 % Normal 36.0-75.0 [facility] Comment on above: Performed By: #### 1 3252100, 1661957, 7660626, 01365262 ####[address] [address] Platelet 214.0 E9/L Normal 150.0-500.0 [facility] Comment on above: Performed By: #### 1 3044920, 8540271, 0963934, 64678183 ####[place] [address] [place] [address] Platelet mean volume (Bld) [Entitic vol] 8.2 fL Normal 6.4-10.8 [facility] Comment on above: Performed By: #### 1 9775702, 5709416, 9771010, 39625220 ####[address] [address] RBC 4.6 E12/L Normal 4.3-5.9 [facility] Comment on above: Performed By: #### 1 1696814, 5968664, 3576310, 19603595 ####[facility] [address] [place] [address] WBC 7.4 E9/L Normal 4.0-11.0 [facility] Comment on above: Performed By: #### 1 6139113, 0832152, 9471357, 29476430 ####[facility] [address] [place] [address] CHEMISTRYOrdered By: Maryan Frost on 09-12-2023 U [...] Remisol Chem Comment on above: Interpretive Data: Stefania evans 95% CI (Confidence Interval) PPV (Positive Predictive Value) for myocardial infarction in females is 38 pg/mL, in males 51 pg/mL. The results should be used in conjunction with clinical conditions of myocardial infarction. (Access High Sensitivity Troponin I Instructions For Use, Marlys Attica, March 2018) Urea nitrogen [Mass/Vol] 24 mg/dL High 5 - 21 mg/dL Remisol Chem Urea nitrogen/Creatinine [Mass ratio] 27 mg/mg High 10 - 20 Remisol Chem CHEMISTRYOrdered By: Lab ROP User on 09-12-2023 Glucose [Mass/Vol] 96 mg/dL Normal 55 - 99 mg/dL [facility] POC Subsection Comment on above: Result Comment: Neli cain RN/ POC Device SN [id number] 1 Invalid Interpretation Code [facility] POC Subsection POC User ID [id number] 1 Invalid Interpretation Code [facility] POC Subsection POC Username CORINNE COTA Invalid Interpretation Code [facility] POC Subsection CNPNon 09-12-2023 CNPN Telephone ([facility]) HARJIT ASENCIO I ([id number]) 1950 F Date Time Provider Department 09/12/23 ALEA HARLEY CARCMN During your visit today, we recorded the following information about you: Junito Mendes 09/12/2023 9:26 AM Signed September 12, 2023 Patient Contact Number: [phone] Patient last seen within the last year: [...] states she was able to speak with ADULT CARE MANAGER in her PCP's office since he is [...] the valsartan without a replacement Kim Greenberg, RN 09/15/2023 5:[address] [...] mitral regurgitat (more content not included)... Normal [facility] Telephone (CARDM[employer] BattlesSP) HARJIT ASENCIO I ([id number]) 1950 F Date Time Provider Department 09/12/23 [...] medical care. Martha Galvez MD PGY 5 Audit Intern Heart,Vascular, and Thoracic [facility] Allergies As of Date: 09/12/2023 Noted [...] Status:Closed by MARTHA GALVEZ on 09/12/23 Normal [facility] CT Head or Brain w/o Contras ton 09-12-2023 CT Head or Brain w/o Contrast Normal [facility] Capillary Glucose POCon 08-16 Glucose [Mass/Vol] 96 mg/dL Normal 55-99 [facility] Comment on above: Result Comment: Neli cain RN/ Performed By: #### 2 [id number] ####[facility] [address] [place] [address] Consent for Treatmenton 08-16 Consent for Treatment [id number] .00TIFF Normal [facility] Discharge Instructionson Discharge Instructions [id number]#1 .00TIFF Normal [facility] ED Clinical Summaryon 2023 ED Clinical Summary Normal [facility] ED Note-Physicianon 09-12-19 24 ED Note-Physician Normal [facility] Comment on above: Result Comment: Elec tronically Signed By: Parveen Ayers DO\.br\Date and Time Signed: 09/12/23 06:35 EST ED Patient Education Noteon 09-12-2023 ED Patient Education Note Normal [facility] ED Patient Summaryon 024 ED Patient Summary Normal [facility] HEMATOLOGYOrdered By: SYSTEM SYSTEM on 09-12-2023 [...] Normal 80.0 - 100.0 fL Remisol Heme Knott Absolute 0.6 E9/L Normal 0.2 - 1.0 [...] Remisol Heme Monitor Recordon 09-12-2023 Monitor Record [id number]# 1.00TIFF Normal [facility] Troponin 0 Hr.on 09-12-2023 Troponin 12.70 pg/mL Normal 10.10-27.10 [facility] Comment on above: Result Comment: The 95% CI (Confidence Interval) PPV (Positive Predictive Value) for myocardial infarction in females is 38 pg/mL, in males 51 pg/mL. The results should be used in conjunction with clinical conditions of myocardial infarction.(Access High Sensitivity Troponin I Instructions For Use, Marlys Attica, March 2018) Performed By: #### 1 1659495, 5404058, 4367873, 53457040 ####[facility] [address] [place] [address] U Drug Screenon 09-12-2023 U Amph Scr Negative Invalid Interpretation Code [facility] Comment on above: Performed By: #### 2 640318 ####[facility] [address] [place] [address] U Hayley Scr Negative Invalid Interpretation Code [facility] Comment on above: Performed By: #### 2 904779 ####[facility] [address] [place] [address] U Benzodia Scr Negative Invalid Interpretation Code [facility] Comment on above: Performed By: #### 2 137274 ####[facility] [address] [place] [address] U Cannab Scr Negative Invalid Interpretation Code [facility] Comment on above: Performed By: #### 2 816008 ####[facility] [address] [place] [address] U Cocaine Scr Negative Invalid Interpretation Code [facility] Comment on above: Performed By: #### 2 185764 ####[facility] [address] [place] [address] U Opiate Scr Negative Invalid Interpretation Code [facility] Comment on above: Performed By: #### 2 233295 ####[facility] [address] [place] [address] U PCP Scr Negative Invalid Interpretation Code [facility] Comment on above: Performed By: #### 2 190450 ####[facility] [address] [place] [address] UA With Cult Reflexon 2023 Bilirubin Ql (U) Negative Normal Negative [facility] Comment on above: Performed By: #### 1 2474842 ####[facility] [address] [place] [address] Clarity (U) CLEAR Normal Clear [facility] Comment on above: Performed By: #### 1 2509527 ####[facility] [address] [place] [address] Color (U) STRAW Invalid Interpretation Code [facility] Comment on above: Performed By: #### 1 5877452 ####[facility] [address] [place] [address] Epithelial cells.squamous LM.HPF (Urine sed) [#/Area] 0-2 Normal 0-2 [facility] Comment on above: Performed By: #### 1 0157053 ####[facility] [address] [place] [address] Glucose Test strip (U) [Mass/Vol] Negative Normal Negative [facility] Comment on above: Performed By: #### 1 [id number] ####[address] [address] Hemoglobin Ql (U) 1+ Abnormal Negative [facility] Comment on above: Performed By: #### 1 [id number] ####[address] [address] Ketones (U) [Mass/Vol] Negative Normal Negative [facility] Comment on above: Performed By: #### 1 [id number] ####[facility] [address] [place] [address] [place].plasma/Oldham .RBC (Bld) [Mass ratio] 0-3 Normal 0-3 [facility] Comment on above: Performed By: #### 1 [id number] ####[address] [address] Nitrite Ql (U) Negative Normal Negative [facility] Comment on above: Performed By: #### 1 [id number] ####[facility] [address] [place] [address] pH (U) 7.0 [pH] Invalid Interpretation Code 5.0-9.0 [facility] Comment on above: Performed By: #### 1 3992100 ####[facility] [address] [place] [address] Protein (U) [Mass/Vol] Negative Normal Negative [facility] Comment on above: Performed By: #### 1 9821914 ####[facility] [address] [place] [address] Specific gravity (U) [Rel density] <=1.005 Invalid Interpretation Code 1.005-1.030 [facility] Comment on above: Performed By: #### 1 [id number] ####[place] [address] Type of Urine collection method Clean Catch Normal [facility] Comment on above: Performed By: #### 1 1236192 ####[place] [address] Urobilinogen Qn (U) 0.2 {Judith'U}/dL Normal 0.0-1.0 [facility] Comment on above: Performed By: #### 1 1876103 ####[place] [address] WBC Auto Ql (U) TRACE Abnormal Negative [facility] Comment on above: Performed By: #### 1 4754460 ####[place] [address] WBC LM.HPF (Urine sed) [#/Area] 0-5 Normal 0-5 [facility] Comment on above: Performed By: #### 1 [id number] ####[place] [address] URINALYSISOrdered By: Ethan Frost on 09-12-2023 Bilirubin Ql (U) Negative (09/12/23 4:53 AM) Normal Negative [facility] UA Auto SS Clarity (U) Clear (09/12/23 4:53 AM) Normal Clear [facility] UA Auto SS Color (U) STRAW Invalid Interpretation Code [facility] UA Auto SS Epithelial cells.squamous LM.HPF (Urine sed) [#/Area] 0-2 /HPF Normal 0-2/HPF [facility] UA Aut o SS Glucose Test strip (U) [Mass/Vol] Negative (09/12/23 4:53 AM) Normal Negative [facility] UA Auto SS Hemoglobin Ql (U) 1+ *ABN* (09/12/23 4:53 AM) Invalid Interpretation Code Negative [facility] UA Auto SS Ketones (U) [Mass/Vol] Negative (09/12/23 4:53 AM) Normal Negative [facility] UA Auto SS Oldham.plasma/Oldham .RBC (Bld) [Mass ratio] 0-3 /HPF Normal [...] Desc Clean Catch (09/12/23 4:53 AM) Normal [facility] UA Auto SS Urobilinogen Qn (U) 0.7321124 {Judith'U}/dL Normal 0.0 - 1.0 EU/dL [facility] UA Auto SS WBC Auto Ql (U) Trace *ABN* (09/12/23 4:53 AM) Invalid Interpretation Code Negative [facility] UA Auto SS WBC LM.HPF (Urine sed) [#/Area] 0-5 /HPF Normal 0-5/HPF [facility] UA Auto SS XR Chest Single Viewon 09-12 XR Chest Single View Normal [facility] eGFRon 09-12-2023 eGFR 66 mL/min/1.73 m2 Normal >=59 [facility] Comment on above: Order Comment: Order added by Discern Expert. Performed By: #### 1 [id number], [id number], [id number], [id number] ####[facility] [address] [place] [address] Samia 09-07-2023 [facility] HARJIT ASENCIO I ([id number]) 1950 F Date Time Provider Department 09/07/23 [...] Reason for Visit: Follow Up Phone Call [2548] Cmt: Relate care discharge follow up-day 2-wizklvxah-ozc clear Prescriptions as of 09/07/2023 - apixaban [...] Encounter Status:Closed [facility] HARJ[facility] ASENC[facility] I ([id number]) 1950 F Date Time Provider Department 09/01/23 ALEA HARLEY CAR[facility]N During your visit today, we recorded the following information about you: Junito Mendes 09/01/2023 9:33 AM Signed September 01, 2023 Patient Contact Number: [phone] Patient last seen within the last year: [...] Fully Assessed Reason for Visit: Medication Question [1918] Cmt: Eliquis and Valsartan Prescriptions as of [...] by JUNITO MENDES on 09/01/23 [facility] Telephone ([facility]OD[facility]) HARJIT ASENCIO I ([id number]) 1950 F Date Time Provider Department 09/01/23 [...] Reason for Visit: Follow Up Phone Call [4690] Cmt: RC f/u all clear Prescriptions as [...] Status:Closed by CARLA OLIVERA on 09/01/23 Normal [facility] CBC panel Auto (Bld)on 08-31 Erythrocyte distribution width (RBC) [Ratio] 12.9 % Normal 11.5-15.0 [facility] Comment on above: Order Comment: Speci men Type: BLOOD SPECIMEN Ordering Facility: [facility] Address: [address] [place] [address] Performed By: #### 5 8410-2 #### [facility] CLIA [id number] [address] [place] [address] [place] Hematocrit (Bld) [Volume fraction] 36.1 % Normal 36.0-46.0 [facility] Comment on above: Order Comment: Speci men Type: BLOOD SPECIMEN Ordering Facility: [facility] Address: [address] [place] [address] Performed By: #### 5 8410-2 #### [facility] CLIA [id number] [address] [place] [address] [place] Hemoglobin (Bld) [Mass/Vol] 11.9 g/dL Normal 11.5-15.5 [facility] Comment on above: Order Comment: Speci men Type: BLOOD SPECIMEN Ordering Facility: [facility] Address: [address] [place] [address] Performed By: #### 5 8410-2 #### [facility] CLIA [id number] [address] [place] [address] [place] MCH (RBC) [Entitic mass] 29.5 pg Normal 26.0-34.0 [facility] Comment on above: Order Comment: Speci men Type: BLOOD SPECIMEN Ordering Facility: [facility] Address: [address] [place] [address] Performed By: #### 5 8410-2 #### [facility] CLIA [id number] [address] [place] [address] [place] MCHC (RBC) [Mass/Vol] 33.0 g/dL Normal 30.5-36.0 [facility] Comment on above: Order Comment: Speci men Type: BLOOD SPECIMEN Ordering Facility: [facility] Address: [address] [place] [address] Performed By: #### 5 8410-2 #### [facility] CLIA [id number] [address] [place] [address] [place] MCV (RBC) [Entitic vol] 89.4 fL Normal 80.0-100.0 [facility] Comment on above: Order Comment: Speci men Type: BLOOD SPECIMEN Ordering Facility: [facility] Address: [address] [place] [address] Performed By: #### 5 8410-2 #### [facility] CLIA [id number] [address] [place] [address] [place] Nucleated RBC (Bld) [#/Vol] 10*3/uL Normal <0.01 [facility] Comment on above: Order Comment: Speci men Type: BLOOD SPECIMEN Ordering Facility: [facility] Address: [address] [place] [address] Performed By: #### 5 8410-2 #### [facility] CLIA [id number] [address] [place] [address] [place] Platelet mean volume (Bld) [Entitic vol] 10.2 fL Normal 9.0-12.7 [facility] Comment on above: Order Comment: Speci men Type: BLOOD SPECIMEN Ordering Facility: [facility] Address: [address] [place] [address] Performed By: #### 5 8410-2 #### [facility] CLIA [id number] [address] [place] [address] [place] Platelets (Bld) [#/Vol] 175 10*3/uL Normal 150-400 [facility] Comment on above: Order Comment: Speci men Type: BLOOD SPECIMEN Ordering Facility: [facility] Address: [address] [place] [address] Performed By: #### 5 8410-2 #### [facility] CLIA [id number] [address] [place] [address] [place] RBC (Bld) [#/Vol] 4.04 10*6/uL Normal 3.90-5.[address] [facility] Comment on above: Order Comment: Speci men Type: BLOOD SPECIMEN Ordering Facility: [facility] Address: [address] [place] [address] Performed By: #### 5 8410-2 #### [facility] CLIA [id number] [address] [facility] [place] [id number] [place] WBC (Bld) [#/Vol] 6.11 10*3/uL Normal 3.70-11.[address] [facility] Comment on above: Order Comment: Speci men Type: BLOOD SPECIMEN Ordering Facility: [facility] Address: [address] [place] [address] Performed By: #### 5 8410-2 #### [facility] CLIA [id number] [facility] [place] [id number] [facility] [place] CNDSon 08-31-2023 CNDS HNO ID: [id number] Author: CARLITOS MIDDLETON MD Service: Cardiovascular Medicine [...] business days of your discharge please call [phone]. 3) Psychiatry to discuss management of your anxiety and how to improve the regimen of your anxiety medications (lorazepam). If you don't see an appointment on my chart within 3 business days of your discharge please call [phone]. 4) Psychotherapy to promote use of adaptive [...] void residual was 305cc, and a 14 italian robles was inserted on 08/28 and removed [...] well as an SGLTi as outpatient. #Afib ([id number] 5) Rate controlled this admission (hx of RVR), on anticoagulation which should be continued. Rate control with beta yolette and digoxin 0.125 mg. On 08/28/23 rhythm control achieved with HAROON DCCV, and digoxin was decreased by half. Plan: - Continue with digoxin 0.125 mg and carv (more content not included)... Normal [facility] Comprehensive metabolic 2000 panelon 08-31-2023 Albumin [Mass/Vol] 3.5 g/dL Low 3.9-4.9 [facility] Comment on above: Order Comment: Speci men Type: BLOOD SPECIMENOrdering Facility: [facility] Address: [address] [place] [address] Performed By: #### 1 9123-9, 07828-5 ####[facility] [id number] [place] [address] [place] ALP [Catalytic activity/Vol] 52 U/L Normal 34-123 [facility] Comment on above: Order Comment: Speci men Type: BLOOD SPECIMENOrdering Facility: [facility] Address: [address] [place] [address] Performed By: #### 1 9123-9, 86914-7 ####[facility] [id number] [place] [address] [place] ALT [Catalytic activity/Vol] 24 U/L Normal 7-38 [facility] Comment on above: Order Comment: Speci men Type: BLOOD SPECIMENOrdering Facility: [facility] Address: [address] [place] [address] Performed By: #### 1 9123-9, ####[facility]IA [id number] [place] [address] [place] Anion gap [Moles/Vol] 9 mmol/L Normal 9-18 [facility] Comment on above: Order Comment: Speci men Type: BLOOD SPECIMENOrdering Facility: [facility] Address: [address] [place] [address] Performed By: #### 1 9123-9, ####[facility]CLIA [id number] [place] [address] [place] AST [Catalytic activity/Vol] 20 U/L Normal 13-35 [facility] Comment on above: Order Comment: Speci men Type: BLOOD SPECIMENOrdering Facility: [facility] Address: [address] [place] [address] Performed By: #### 1 9123-9, ####[facility]CLIA [id number] [place] [address] [place] Bilirubin [Mass/Vol] 0.5 mg/dL Normal 0.2-1.3 [facility] Comment on above: Order Comment: Speci men Type: BLOOD SPECIMENOrdering Facility: [facility] Address: [address] [place] [address] Performed By: #### 1 9, ####[facility]CLIA [id number] [address] [address] [place] Calcium [Mass/Vol] 9.2 mg/dL Normal 8.5-10.2 [facility] Comment on above: Order Comment: Speci men Type: BLOOD SPECIMENOrdering Facility: [facility] Address: [address] [place] [address] Performed By: #### 1 9, ####[facility]CLIA [id number] [place] [address] [place] Chloride [Moles/Vol] 103 mmol/L Normal 97-105 [facility] Comment on above: Order Comment: Speci men Type: BLOOD SPECIMENOrdering Facility: [facility] Address: [address] [place] [address] Performed By: #### 1 9, ####[facility]CLIA [id number] [place] [address] [place] CO2 [Moles/Vol] 25 mmol/L Normal 22-30 [facility] Comment on above: Order Comment: Speci men Type: BLOOD SPECIMENOrdering Facility: [facility] Address: [address] [place] [address] Performed By: #### 1 239, ####[facility]CLIA [id number] [place] [address] [place] Creatinine [Mass/Vol] 0.90 mg/dL Normal 0.58-0.96 [facility] Comment on above: Order Comment: Speci men Type: BLOOD SPECIMENOrdering Facility: [facility] Address: [address] [place] [address] Performed By: #### 1 239, ####[facility]CLIA [id number] [place] [address] [place] Creatinine and Glomerular filtration rate.predicted panel (S/P/Bld) 67 mL/min/1.73m??? Normal >=60 [facility] Comment on above: Order Comment: Nichole becerra Type: BLOOD SPECIMENOrdering Facility: [facility] Address: [address] [place] [address] Result Comment: Shelley mated Glomerular Filtration Rate [...] actual GFR. Performed By: #### 1 9123-9, 19674-3 ####[facility]IA [id number] [place] [address] [place] Glucose [Mass/Vol] 85 mg/dL Normal 74-99 [facility] Comment on above: Order Comment: Nichole becerra Type: BLOOD SPECIMENOrdering Facility: [facility] Address: [address] [place] [address] Result Comment: The [place] Diabetes Association (ADA) provides guidance for cutoff [...] Standards of Medical Care in Diabetes 2016, [place] Diabetes Association. Diabetes Care. 2016.39(Suppl 1). Performed By: #### 1 9123-9, 77518-4 ####[facility] LABCLIA [id number] [place] [address] [place] Potassium [Moles/Vol] 4.3 mmol/L Normal 3.7-5.1 [facility] Comment on above: Order Comment: Speci men Type: BLOOD SPECIMENOrdering Facility: [facility] Address: [address] [place] [address] Performed By: #### 1 9123-9, ####[facility] LABCLIA [id number] [place] [address] [place] Protein [Mass/Vol] 5.9 g/dL Low 6.3-8.0 [facility] Comment on above: Order Comment: Speci men Type: BLOOD SPECIMENOrdering Facility: [facility] Address: [address] [place] [address] Performed By: #### 1 9123-9, ####[facility] LABCLIA [id number] [place] [address] [place] Sodium [Moles/Vol] 137 mmol/L Normal 136-144 [facility] Comment on above: Order Comment: Speci men Type: BLOOD SPECIMENOrdering Facility: [facility] Address: [address] [place] [address] Performed By: #### 1 9123-9, 52486-3 ####[facility]CLIA [id number] [place] [address] [place] Urea nitrogen [Mass/Vol] 16 mg/dL Normal 7-21 [facility] Comment on above: Order Comment: Speci men Type: BLOOD SPECIMENOrdering Facility: [facility] Address: [address] [place] [address] Performed By: #### 1 9123-9, ####[facility] LABCLIA [id number] [place] [address] [place] Magnesium SerPl-mCncon 08-31 Magnesium [Mass/Vol] 2.2 mg/dL Normal 1.7-2.3 [facility] Comment on above: Order Comment: Speci men Type: BLOOD SPECIMENOrdering Facility: [facility] Address: [place] [address] Performed By: #### 1 9123-9, 79199-1 ####[facility] LABCLIA [id number] PRISCILLA SALDANA [id number] [facility] NUTRITIONon 08-31-2023 NUTRITION HNO ID: [id number] Author: KRISHAN DUENAS RD Service: Nutrition Therapy [...] RD DATE: 08/31/2023 TIME: 10:53 AM Normal [facility] PT EDon 08-31-2023 PT ED HNO ID: [id number] Author: CAN RIBERA RPh Service: Pharmacy Author [...] FURTHER RECOMMENDATIONS (IF ANY): MILLI Ribera [facility] PAGER: [phone] [facility] PT ED HNO ID: [id number] Author: KRISHAN DUENAS RD Service: Nutrition Therapy [...] 31, 2023 TIME: 12:07 PM PAGER: Normal [facility] FEMALE PELVIS TRANSABD LT Don 08-31-2023 FEMALE [...] additional imaging is advised for this finding. 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man: LILIANA Transcribe Date/Time: Aug 31 2023 9:09A Dictated by : RADHA PEREYRA MD This examination was interpreted and the report reviewed and electronically signed by: RADHA PEREYRA MD on Aug 31 2023 9:13AM EST [id number] Normal [facility] US FEMALE PELVIS TRANSVAGon 08-31-2023 US FEMALE PELVIS TRANSVAG * * *Final Report* * * DATE OF EXAM: Aug 31 2023 8:45AM U 1060 - US FEMALE PELVIS TRANSVAG / [...] additional imaging is advised for this finding. 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 Transcribe Date/Time: Aug 31 2023 9:09A Dictated by : RADHA PEREYRA MD This examination was interpreted and the report reviewed and electronically signed by: RADHA PEREYRA MD on Aug 31 2023 9:13AM EST [id number] Normal [facility] CBC panel Auto (Bld)on 08-30 Erythrocyte distribution width (RBC) [Ratio] 13.1 % Normal 11.5-15.0 [facility] Comment on above: Order Comment: Speci men Type: BLOOD SPECIMEN Ordering Facility: [facility] Address: [address] [place] [address] Performed By: #### 1 9123-9, 68030-8 #### [facility] CLIA [id number] [address] [place] [address] [place] Hematocrit (Bld) [Volume fraction] 38.9 % Normal 36.0-46.0 [facility] Comment on above: Order Comment: Speci men Type: BLOOD SPECIMEN Ordering Facility: [facility] Address: [address] [place] [address] Performed By: #### 1 9123-9, 61952-3 #### [facility] CLIA [id number] [address] [place] [address] [place] Hemoglobin (Bld) [Mass/Vol] 12.6 g/dL Normal 11.5-15.5 [facility] Comment on above: Order Comment: Speci men Type: BLOOD SPECIMEN Ordering Facility: [facility] Address: [address] [place] [address] Performed By: #### 1 9123-9, 50458-0 #### [facility] CLIA [id number] [address] [place] [address] [place] MCH (RBC) [Entitic mass] 29.9 pg Normal 26.0-34.0 [facility] Comment on above: Order Comment: Speci men Type: BLOOD SPECIMEN Ordering Facility: [facility] Address: [address] [place] [address] Performed By: #### 1 9123-9, 27333-0 #### [facility] CLIA [id number] [address] [place] [address] [place] MCHC (RBC) [Mass/Vol] 32.4 g/dL Normal 30.5-36.0 [facility] Comment on above: Order Comment: Speci men Type: BLOOD SPECIMEN Ordering Facility: [facility] Address: [address] [place] [address] Performed By: #### 1 9123-9, #### [facility] CLIA [id number] [address] [place] [address] [place] MCV (RBC) [Entitic vol] 92.2 fL Normal 80.0-100.0 [facility] Comment on above: Order Comment: Speci men Type: BLOOD SPECIMEN Ordering Facility: [facility] Address: [address] [place] [address] Performed By: #### 1 9123-9, #### [facility] CLIA [id number] [address] [place] [address] [place] Nucleated RBC (Bld) [#/Vol] 10*3/uL Normal <0.01 [facility] Comment on above: Order Comment: Speci men Type: BLOOD SPECIMEN Ordering Facility: [facility] Address: [address] [place] [address] Performed By: #### 1 239, #### [facility] CLIA [id number] [address] [place] [address] [place] Platelet mean volume (Bld) [Entitic vol] 10.4 fL Normal 9.0-12.7 [facility] Comment on above: Order Comment: Speci men Type: BLOOD SPECIMEN Ordering Facility: [facility] Address: [address] [place] [address] Performed By: #### 1 23-9, #### [facility] CLIA [id number] [address] [place] [address] [place] Platelets (Bld) [#/Vol] 185 10*3/uL Normal 150-400 [facility] Comment on above: Order Comment: Speci men Type: BLOOD SPECIMEN Ordering Facility: [facility] Address: [address] [place] [address] Performed By: #### 1 9123-9, 80739-3 #### [facility] CLIA [id number] [address] [place] [address] [place] RBC (Bld) [#/Vol] 4.22 10*6/uL Normal 3.90-5.[address] [facility] Comment on above: Order Comment: Speci men Type: BLOOD SPECIMEN Ordering Facility: [facility] Address: [address] [place] [address] Performed By: #### 1 9123-9, 28305-6 #### [facility] CLIA [id number] [address] [place] [address] [place] WBC (Bld) [#/Vol] 6.51 10*3/uL Normal 3.70-11.[address] [facility] Comment on above: Order Comment: Speci men Type: BLOOD SPECIMEN Ordering Facility: [facility] Address: [address] [place] [address] Performed By: #### 1 9123-9, 79453-6 #### [facility] CLIA [id number] [address] [place] [address] [place] CNCOon 08-30-2023 CNCO Letter Text Normal [facility] CONSULT PROGon 08-30-2023 CONSULT PROG HNO ID: [id number] Author: CHAUNCEY LEYVA, PhD Service: Psychology Author [...] pt will receive the most benefit from detention outpatient psychotherapy. However, CL Psychology will be [...] adaptive coping (more content not included)... Normal [facility] Comprehensive metabolic 2000 panelon 08-30-2023 Albumin [Mass/Vol] 3.9 g/dL Normal 3.9-4.9 [facility] Comment on above: Order Comment: Speci men Type: BLOOD SPECIMEN Ordering Facility: [facility] Address: [address] [place], [place] [address] [address] Performed By: #### 1 2418-1, 79306-8 #### [facility] CLIA [id number] [address] [place] [address] [place] ALP [Catalytic activity/Vol] 65 U/L Normal 34-123 [facility] [facility] Comment on above: Order Comment: Speci men Type: BLOOD SPECIMEN Ordering Facility: [facility] Address: [address] [place] [address] Performed By: #### 1 9123-9, 40233-7 #### [facility] CLIA [id number] [address] [place] [address] [place] ALT [Catalytic activity/Vol] 28 U/L Normal 7-38 [facility] Comment on above: Order Comment: Speci men Type: BLOOD SPECIMEN Ordering Facility: [facility] Address: [address] [place] [address] Performed By: #### 1 9123-9, 28338-9 #### [facility] CLIA [id number] [address] [place] [address] [place] Anion gap [Moles/Vol] 9 mmol/L Normal 9-18 [facility] Comment on above: Order Comment: Speci men Type: BLOOD SPECIMEN Ordering Facility: [facility] Address: [address] [place] [address] Performed By: #### 1 9123-9, 42362-4 #### [facility] CLIA [id number] [address] [place] [address] [place] AST [Catalytic activity/Vol] 24 U/L Normal 13-35 [facility] Comment on above: Order Comment: Speci men Type: BLOOD SPECIMEN Ordering Facility: [facility] Address: [address] [place] [address] Performed By: #### 1 9123-9, 68586-6 #### [facility] CLIA [id number] [address] [place] [address] [place] Bilirubin [Mass/Vol] 0.5 mg/dL Normal 0.2-1.3 [facility] Comment on above: Order Comment: Speci men Type: BLOOD SPECIMEN Ordering Facility: [facility] Address: [address] [place] [address] Performed By: #### 1 9123-9, #### [facility] CLIA [id number] [address] [place] [address] [place] Calcium [Mass/Vol] 9.3 mg/dL Normal 8.5-10.2 [facility] Comment on above: Order Comment: Speci men Type: BLOOD SPECIMEN Ordering Facility: [facility] Address: [address] [place] [address] Performed By: #### 1 9123-9, #### [facility] CLIA [id number] [address] [place] [address] [place] Chloride [Moles/Vol] 103 mmol/L Normal 97-105 [facility] Comment on above: Order Comment: Speci men Type: BLOOD SPECIMEN Ordering Facility: [facility] Address: [address] [place] [address] Performed By: #### 1 9123-9, #### [facility] CLIA [id number] [address] [place] [address] [place] CO2 [Moles/Vol] 25 mmol/L Normal 22-30 [facility] Comment on above: Order Comment: Speci men Type: BLOOD SPECIMEN Ordering Facility: [facility] Address: [address] [place] [address] Performed By: #### 1 9123-9, 94505-6 #### [facility] CLIA [id number] [address] [place] [address] [place] Creatinine [Mass/Vol] 1.11 mg/dL High 0.58-0.96 [facility] Comment on above: Order Comment: Speci men Type: BLOOD SPECIMEN Ordering Facility: [facility] Address: [address] [place] [address] Performed By: #### 1 9123-9, 21106-5 #### [facility] CLIA [id number] [address] [place] [address] [place] Creatinine and Glomerular filtration rate.predicted panel (S/P/Bld) 52 mL/min/1.73m??? Low >=60 [facility] Comment on above: Order Comment: Nichole becerra Type: BLOOD SPECIMEN Ordering Facility: [facility] Address: [address] [place] [address] Result Comment: Shelley mated Glomerular Filtration Rate [...] actual GFR. Performed By: #### 1 9123-9, 98507-6 #### [facility] CLIA [id number] [facility] [place] [address] [place] Glucose [Mass/Vol] 149 mg/dL High 74-99 [facility] Comment on above: Order Comment: Nichole becerra Type: BLOOD SPECIMEN Ordering Facility: [facility] Address: [address] [place] [address] Result Comment: The [place] Diabetes Association (ADA) provides guidance for cutoff [...] Standards of Medical Care in Diabetes 2016, [place] Diabetes Association. Diabetes Care. 2016.39(Suppl 1). Performed By: #### 1 9123-9, 36914-4 #### [facility] CLIA [id number] [address] [place] [address] [place] Potassium [Moles/Vol] 5.0 mmol/L Normal 3.7-5.1 [facility] Comment on above: Order Comment: Speci men Type: BLOOD SPECIMEN Ordering Facility: [facility] Address: [address] [place] [address] Performed By: #### 1 9123-9, 31554-8 #### [facility] CLIA [id number] [address] [place] [address] [place] Protein [Mass/Vol] 6.3 g/dL Normal 6.3-8.0 [facility] Comment on above: Order Comment: Speci men Type: BLOOD SPECIMEN Ordering Facility: [facility] Address: [address] [place] [address] Performed By: #### 1 9123-9, #### [facility] CLIA [id number] [address] [place] [id number] [place] Sodium [Moles/Vol] 137 mmol/L Normal 136-144 [facility] Comment on above: Order Comment: Speci men Type: BLOOD SPECIMEN Ordering Facility: [facility] Address: [address] [place] [address] Performed By: #### 1 9123-9, 37305-3 #### [facility] CLIA [id number] [address] [place] [id number] [place] Urea nitrogen [Mass/Vol] 19 mg/dL Normal 7-21 [facility] Comment on above: Order Comment: Speci men Type: BLOOD SPECIMEN Ordering Facility: [facility] Address: [address] [place] [address] Performed By: #### 1 9123-9, 83775-6 #### [facility] CLIA [id number] [address] [place] [id number] [place] Magnesium SerPl-mCncon 08-30 Magnesium [Mass/Vol] 2.2 mg/dL Normal 1.7-2.3 [facility] Comment on above: Order Comment: Speci men Type: BLOOD SPECIMEN Ordering Facility: [facility] Address: [address] [place] [address] Performed By: #### 1 9123-9, 88800-8 #### [facility] CLIA [id number] [address] [facility] DES[id number] [place] [address] [place] NURSING PROGon 08-30-2023 NURSING PROG HNO ID: [id number] Author: CHAVA CAMPUZANO RN Service: Nursing Author Type: Registered Nurse Type: Nursing Progress Note Filed: 08/30/2023 16:30 Note Text: Event(s) / Intervention Note: PATIENT NAME: Harjit Asencio Patient Location: [address]02[address]13 Room: +voiding post robles removal, refer to [facility] for output. Normal [facility] NUTRITIONon 08-30-2023 NUTRITION HNO ID: [id number] Author: KRISHAN DUENAS RD Service: Nutrition Therapy [...] by: Patient/family self-report, Anorexia Estimated kilocalorie needs: 4747-3278 Calorie Calculation Method: 30-35 kcals/kg Estimated protein [...] August 30, 2023 TIME: 12:32 PM Normal [facility] CBC panel Auto (Bld)on 08-29 Erythrocyte distribution width (RBC) [Ratio] 13.1 % Normal 11.5-15.0 [facility] Comment on above: Order Comment: Speci men Type: BLOOD SPECIMEN Ordering Facility: [facility] Address: [address] [place] [address] Performed By: #### 5 8410-2 #### [facility] CLIA [id number] [address] [place] [address] [place] Hematocrit (Bld) [Volume fraction] 39.4 % Normal 36.0-46.0 [facility] Comment on above: Order Comment: Speci men Type: BLOOD SPECIMEN Ordering Facility: [facility] Address: [address] [place] [address] Performed By: #### 5 8410-2 #### [facility] CLIA [id number] [address] [place] [address] [place] Hemoglobin (Bld) [Mass/Vol] 13.1 g/dL Normal 11.5-15.5 [facility] Comment on above: Order Comment: Speci men Type: BLOOD SPECIMEN Ordering Facility: [facility] Address: [address] [place] [address] Performed By: #### 5 8410-2 #### [facility] CLIA [id number] [address] [place] [address] [place] MCH (RBC) [Entitic mass] 30.0 pg Normal 26.0-34.0 [facility] Comment on above: Order Comment: Speci men Type: BLOOD SPECIMEN Ordering Facility: [facility] Address: [address] [place] [address] Performed By: #### 5 8410-2 #### [facility] CLIA [id number] [address] [place] [address] [place] MCHC (RBC) [Mass/Vol] 33.2 g/dL Normal 30.5-36.0 [facility] Comment on above: Order Comment: Speci men Type: BLOOD SPECIMEN Ordering Facility: [facility] Address: [address] [place] [address] Performed By: #### 5 8410-2 #### [facility] CLIA [id number] [address] [place] [address] [place] MCV (RBC) [Entitic vol] 90.4 fL Normal 80.0-100.0 [facility] Comment on above: Order Comment: Speci men Type: BLOOD SPECIMEN Ordering Facility: [facility] Address: [address] [place] [address] Performed By: #### 5 8410-2 #### [facility] CLIA [id number] [address] [place] [address] [place] Nucleated RBC (Bld) [#/Vol] 10*3/uL Normal <0.01 [facility] Comment on above: Order Comment: Speci men Type: BLOOD SPECIMEN Ordering Facility: [facility] Address: [address] [place] [address] Performed By: #### 5 8410-2 #### [facility] CLIA [id number] [address] [place] [address] [place] Platelet mean volume (Bld) [Entitic vol] 10.5 fL Normal 9.0-12.7 [facility] Comment on above: Order Comment: Speci men Type: BLOOD SPECIMEN Ordering Facility: [facility] Address: [address] [place] [address] Performed By: #### 5 8410-2 #### [facility] CLIA [id number] [address] [place] [address] [place] Platelets (Bld) [#/Vol] 192 10*3/uL Normal 150-400 [facility] Comment on above: Order Comment: Speci men Type: BLOOD SPECIMEN Ordering Facility: [facility] Address: [address] [place] [address] Performed By: #### 5 8410-2 #### [facility] CLIA [id number] [address] [place] [address] [place] RBC (Bld) [#/Vol] 4.36 10*6/uL Normal 3.90-5.[address] [facility] Comment on above: Order Comment: Speci men Type: BLOOD SPECIMEN Ordering Facility: [facility] Address: [address] [place] [address] Performed By: #### 5 8410-2 #### [facility] CLIA [id number] [address] [place] [address] [place] WBC (Bld) [#/Vol] 8.00 10*3/uL Normal 3.70-11.[address] [facility] Comment on above: Order Comment: Speci men Type: BLOOD SPECIMEN Ordering Facility: [facility] Address: [address] [place] [address] Performed By: #### 5 8410-2 #### [facility] CLIA [id number] [address] [place] [address] [place] FLANK WO IVCONon 08-29-[address] FLANK WO IVCON * * *Final Report* * * DATE OF EXAM: Aug 29 2023 2:54PM [facility] 0529 - CT FLANK WO IVCON / [...] thorax: Cardiomegaly. Minimal left basilar subsegmental atelectasis Charge Operator (topogram) images: Unremarkable. IMPRESSION: No urinary tract calculi. No acute findings in the abdomen or pelvis. Increased size of RIGHT adnexal/ovarian cystic lesion, which at discretion this could be further characterized with ultrasound. ACTIONABLE RESULT: FOLLOW-UP Acuity: Actionable Findings: Female reproductive tract (pelvis, adnexa) Routing code: WH_1 Recommendation: US FEMALE PELVIS NON-OB NON TORSION ([id number]) Time Frame: At the discretion of the clinical team. COMMUNICATION: Results will be communicated with the ordering provider via [employer] staff message or phone message by [employer] within 2 business days of report finalization. --END OF FINDING-- 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: LILIANA Transcribe Date/Time: Aug 29 2023 2:57P Dictated by : NITZA CARUSO MD This examination was interpreted and the report reviewed and electronically signed by: MIGEL CARRION MD on Aug 29 2023 4:39PM EST [id number] ACTIONABLE Invalid Interpretation Code [facility] metabolic 2000 panelon 08-29-2023 Albumin [Mass/Vol] 3.9 g/dL Normal 3.9-4.9 [facility] Comment on above: Order Comment: Speci men Type: BLOOD SPECIMEN Ordering Facility: [facility] Address: [address] [place] [address] Performed By: #### 1 9123-9, 33414-0 #### [facility] CLIA [id number] [address] [place] [address] [place] ALP [Catalytic activity/Vol] 58 U/L Normal 34-123 [facility] Comment on above: Order Comment: Speci men Type: BLOOD SPECIMEN Ordering Facility: [facility] Address: [address] [place] [address] Performed By: #### 1 9123-9, 01888-5 #### [facility] CLIA [id number] [address] [place] [address] [place] ALT [Catalytic activity/Vol] 33 U/L Normal 7-38 [facility] Comment on above: Order Comment: Speci men Type: BLOOD SPECIMEN Ordering Facility: [facility] Address: [address] [place] [address] Performed By: #### 1 9123-9, 58177-5 #### [facility] CLIA [id number] [address] [place] [address] [place] Anion gap [Moles/Vol] 10 mmol/L Normal 9-18 [facility] Comment on above: Order Comment: Speci men Type: BLOOD SPECIMEN Ordering Facility: [facility] Address: [address] [place] [address] Performed By: #### 1 9123-9, 48738-8 #### [facility] CLIA [id number] [address] [place] [address] [place] AST [Catalytic activity/Vol] 25 U/L Normal 13-35 [facility] Comment on above: Order Comment: Speci men Type: BLOOD SPECIMEN Ordering Facility: [facility] Address: [address] [place] [address] Performed By: #### 1 9123-9, 65402-7 #### [facility] CLIA [id number] [address] [place] [address] [place] Bilirubin [Mass/Vol] 0.7 mg/dL Normal 0.2-1.3 [facility] Comment on above: Order Comment: Speci men Type: BLOOD SPECIMEN Ordering Facility: [facility] Address: [address] [place] [address] Performed By: #### 1 9123-9, 10293-0 #### [facility] CLIA [id number] [address] [place] [address] [place] Calcium [Mass/Vol] 9.0 mg/dL Normal 8.5-10.2 [facility] Comment on above: Order Comment: Speci men Type: BLOOD SPECIMEN Ordering Facility: [facility] Address: [address] [place] [address] Performed By: #### 1 9123-9, #### [facility] CLIA [id number] [address] [place] [address] [place] Chloride [Moles/Vol] 101 mmol/L Normal 97-105 [facility] Comment on above: Order Comment: Speci men Type: BLOOD SPECIMEN Ordering Facility: [facility] Address: [address] [place] [address] Performed By: #### 1 9123-9, 98625-2 #### [facility] CLIA [id number] [address] [place] [address] [place] CO2 [Moles/Vol] 25 mmol/L Normal 22-30 [facility] Comment on above: Order Comment: Speci men Type: BLOOD SPECIMEN Ordering Facility: [facility] Address: [address] [place] [address] Performed By: #### 1 9123-9, 38029-9 #### [facility] CLIA [id number] [address] [place] [id number] [place] Creatinine [Mass/Vol] 0.87 mg/dL Normal 0.58-0.96 [facility] Comment on above: Order Comment: Nichole becerra Type: BLOOD SPECIMEN Ordering Facility: [facility] Address: [address] [place] [address] Performed By: #### 1 9123-9, #### [facility] CLIA [id number] [address] [place] [address] [place] Creatinine and Glomerular filtration rate.predicted panel (S/P/Bld) 70 mL/min/1.73m??? Normal >=60 [facility] Comment on above: Order Comment: Nichole becerra Type: BLOOD SPECIMEN Ordering Facility: [facility] Address: [address] [place] [address] Result Comment: Shelley mated Glomerular Filtration Rate [...] actual GFR. Performed By: #### 1 9123-9, #### [facility] CLIA [id number] [address] [place] [address] [place] Glucose [Mass/Vol] 85 mg/dL Normal 74-99 [facility] Comment on above: Order Comment: Nichole becerra Type: BLOOD SPECIMEN Ordering Facility: [facility] Address: [address] [place] [address] Result Comment: The [place] Diabetes Association (ADA) provides guidance for cutoff [...] Standards of Medical Care in Diabetes 2016, [place] Diabetes Association. Diabetes Care. 2016.39(Suppl 1). Performed By: #### 1 9123-9, 91328-1 #### [facility] CLIA [id number] [address] [place] [address] [place] Potassium [Moles/Vol] 4.7 mmol/L Normal 3.7-5.1 [facility] Comment on above: Order Comment: Nichole becerra Type: BLOOD SPECIMEN Ordering Facility: [facility] Address: [address] [place] [address] Performed By: #### 1 9123-9, #### [facility] CLIA [id number] [address] [place] [address] [place] Protein [Mass/Vol] 6.3 g/dL Normal 6.3-8.0 [facility] Comment on above: Order Comment: Nichole becerra Type: BLOOD SPECIMEN Ordering Facility: [facility] Address: [address] [place] [address] Performed By: #### 1 9123-9, 35644-8 #### [facility] CLIA [id number] [address] [place] [address] [place] Sodium [Moles/Vol] 136 mmol/L Normal 136-144 [facility] Comment on above: Order Comment: Césari men Type: BLOOD SPECIMEN Ordering Facility: [facility] Address: [address] [place] [address] Performed By: #### 1 9123-9, 39326-4 #### [facility] CLIA [id number] [address] [address] [place] Urea nitrogen [Mass/Vol] 15 mg/dL Normal 7-21 [facility] Comment on above: Order Comment: Speceliseo becerra Type: BLOOD SPECIMEN Ordering Facility: [facility] Address: [place] [address] Performed By: #### 1 9123-9, 37604-1 #### [facility] CLIA [id number] [address] [place] [address] [place] DIGOXIN/LANOXINon 08-29-2023 Digoxin [Mass/Vol] 1.0 ng/mL Normal 0.6-1.2 [facility] Comment on above: Order Comment: Speceliseo becerra Type: BLOOD SPECIMEN Ordering Facility: [facility] Address: [place] [address] Result Comment: Prov ided therapeutic concentrations are based on the 2008 ESC Guidelines for the Diagnosis and Treatment of Acute and Chronic Heart Failure. Reference ranges and high/low indicator flags are provided as general guidelines only. The treating physician must determine appropriate target levels/dosing based on the specific clinical situation. Performed By: #### 1 9123-9, 09564-1 #### [facility] CLIA [id number] [address] [place] [address] [place] Magnesium SerPl-mCncon 08-29 Magnesium [Mass/Vol] 2.2 mg/dL Normal 1.7-2.3 [facility] Comment on above: Order Comment: Nichole becerra Type: BLOOD SPECIMEN Ordering Facility: [facility] Address: [place] [address] Performed By: #### 1 9123-9, 09922-7 #### [facility] CLIA [id number] [facility] [place] [id number] [place] NUTRITIONon 08-29-2023 NUTRITION HNO ID: [id number] Author: KARINA HOLLY DTR Service: Nutrition Therapy Author Type: Polysomnographic Technician Type: Nutrition Filed: 08/29/2023 13:57 Note Text: NUTRITION THERAPY HAND SPRAYER NOTE SERVICE DATE: 08/29/2023 SERVICE TIME: 1200 [...] some. Egg allergy has been added in [employer] and has interfaced in [employer]. ROCÍO Brown was informed. MNT Billing: $ Routine Care : 1-15 minutes SIGNATURE: Karina Holly DTR PATIENT NAME: Harjit Asencio DATE: August 29, 2023 TIME: 1:52 PM Normal [facility] THYROID PEROXIDASE ANTIBODY BLOODon 08-29-2023 TPO Ab Qn [IU]/mL Normal <5.6 [facility] Comment on above: Order Comment: Speci men Type: BLOOD SPECIMEN Ordering Facility: [facility] Address: [address] [place] [address] Result Comment: Thyr oid Peroxidase Antibody test is used as an aid in diagnosis of autoimmune thyroid disease. Clinical correlation is required. Performed By: #### 1 9123-9, 67159-9 #### [facility] CLIA [id number] [address] [facility] [id number] [address] [place] ANES POSTPROC EVALon 024 ANES POSTPROC EVAL HNO ID: [id number] Author: ANNELISE CLEMONS MD Service: ? Author Type: Anesthesiologist Type: Anesthesia Postprocedure Evaluation Filed: 08/28/2023 18:34 Note Text: POST ANESTHESIA EVALUATION NOTE : 1950 Procedure Summary Date: 08/28/23 Room / Location: [address] [facility] Anesthesia Start: 1823 Anesthesia Stop: [...] Resp 16 08/28/23 1834 SpO2 100 08/28/23 1834 Post Anesthesia Patient Status Patient Evaluation: PACU. [...] August 28, 2023 TIME: 6:34 PM CSN: [id number] Normal [facility] ANES PRE-OPon 08-28-2023 ANES PRE-OP HNO ID: [id number] Author: ANNELISE CLEMONS MD Service: ? Author Type: Anesthesiologist Type: Anesthesia Preprocedure Evaluation Filed: 08/28/2023 18:26 Note Text: ANESTHESIOLOGY DAY OF SURGERY NOTE : 1950 Procedure Information Date/Time: 08/28/231704 Procedure: CARDIOVERSION EXTERNAL ELECTIVE Location: [facility] Surgeons: Lorenza Jackson MD Estimated [...] and consent discussed: yes. Patient / Responsible Alliance Party agrees to proceed: yes Patient / [...] August 28, 2023 TIME: 6:26 PM CSN: [id number] Normal [facility] CBC panel Auto (Bld)on 08-28 Erythrocyte distribution width (RBC) [Ratio] 13.1 % Normal 11.5-15.0 [facility] Comment on above: Order Comment: Speci men Type: BLOOD SPECIMEN Ordering Facility: [facility] Address: [address] [place] [address] Performed By: #### 1 9123-9, 08017-9 #### [facility] CLIA [id number] [address] [place] [address] [place] Hematocrit (Bld) [Volume fraction] 37.8 % Normal 36.0-46.0 [facility] Comment on above: Order Comment: Speci men Type: BLOOD SPECIMEN Ordering Facility: [facility] Address: [address] [place] [address] Performed By: #### 1 9123-9, #### [facility] CLIA [id number] [address] [place] [address] [place] Hemoglobin (Bld) [Mass/Vol] 12.3 g/dL Normal 11.5-15.5 [facility] Comment on above: Order Comment: Speci men Type: BLOOD SPECIMEN Ordering Facility: [facility] Address: [address] [place] [address] Performed By: #### 1 9123-9, #### [facility] CLIA [id number] [facility] [place] [address] [place] MCH (RBC) [Entitic mass] 29.5 pg Normal 26.0-34.0 [facility] Comment on above: Order Comment: Speci men Type: BLOOD SPECIMEN Ordering Facility: [facility] Address: [address] [place] [address] Performed By: #### 1 9123-9, 17092-9 #### [facility] CLIA [id number] [address] [place] [address] [place] MCHC (RBC) [Mass/Vol] 32.5 g/dL Normal 30.5-36.0 [facility] Comment on above: Order Comment: Speci men Type: BLOOD SPECIMEN Ordering Facility: [facility] Address: [address] [place] [address] Performed By: #### 1 9123-9, 41671-6 #### [facility] CLIA [id number] [address] [place] [address] [place] MCV (RBC) [Entitic vol] 90.6 fL Normal 80.0-100.0 [facility] Comment on above: Order Comment: Speci men Type: BLOOD SPECIMEN Ordering Facility: [facility] Address: [address] [place] [address] Performed By: #### 1 9123-9, 53651-9 #### [facility] CLIA [id number] [address] [place] [address] [place] Nucleated RBC (Bld) [#/Vol] 10*3/uL Normal <0.01 [facility] Comment on above: Order Comment: Speci men Type: BLOOD SPECIMEN Ordering Facility: [facility] Address: [address] [place] [address] Performed By: #### 1 9123-9, 28021-0 #### [facility] CLIA [id number] [address] [place] [address] [place] Platelet mean volume (Bld) [Entitic vol] 10.4 fL Normal 9.0-12.7 [facility] Comment on above: Order Comment: Speci men Type: BLOOD SPECIMEN Ordering Facility: [facility] Address: [address] [place] [address] Performed By: #### 1 9123-9, 47023-9 #### [facility] CLIA [id number] [address] [place] [address] [place] Platelets (Bld) [#/Vol] 180 10*3/uL Normal 150-400 [facility] Comment on above: Order Comment: Speci men Type: BLOOD SPECIMEN Ordering Facility: [facility] Address: [address] [place] [address] Performed By: #### 1 9123-9, 74674-6 #### [facility] CLIA [id number] [address] [place] [address] [place] RBC (Bld) [#/Vol] 4.17 10*6/uL Normal 3.90-5.[address] [facility] Comment on above: Order Comment: Speci men Type: BLOOD SPECIMEN Ordering Facility: [facility] Address: [address] [place] [address] Performed By: #### 1 9123-9, 88115-9 #### [facility] CLIA [id number] [address] [place] [address] [place] WBC (Bld) [#/Vol] 6.22 10*3/uL Normal 3.70-11.[address] [facility] Comment on above: Order Comment: Speci men Type: BLOOD SPECIMEN Ordering Facility: [facility] Address: [address] [place] [address] Performed By: #### 1 9123-9, 43892-4 #### [facility] CLIA [id number] [address] [place] [address] [facility] [place] CNOVon 08-28-2023 CNOV Office Visit (CAFN ) HARJIT ASENCIO I ([id number]) 1950 F Date Time Provider Department 08/28/23 [...] Intolerance Date Reviewed: 08/28/2023 Reviewed by: Familia Londono, ROCÍO - Fully Assessed Primary Visit [...] Status:Closed by FAMILIA LONDONO on 08/28/23 Normal [facility] CONSULTon 08-28-2023 CONSULT HNO ID: [id number] Author: GERMAINE CHOW MD Service: Psychiatry Author Type: Physician Type: Consults Filed: 08/29/2023 17:28 Note Text: PSYCHIATRY CONSULT SERVICE MEDICAL STUDENT INITIAL CONSULT NOTE DAY TIME COVERAGE: Between 8AM to 5PM, page [phone] NIGHT AND WEEKEND COVERAGE: After hours (5PM to 8AM) and weekends, page [phone] SERVICE DATE: August 28, 2023 SERVICE TIME: [...] is a 73 year old female from [place], [place]. History of Present Illness: Ms. Aesncio is a 73 y/o F with a PMHx significant for NICM, HFrEF, moderate-severe MR and TR, and hx of Afib with RVR, HTN, uretral stricture s/p dilation in 04/2023, and s/p sigmoidectomy with end to end anastomosis in 1995. She has a PPHx significant for anxiety and is on 1 mg Lorazepam q6 hours to manage it. She presented to the [facility] on 08/24 after a visit w/ [...] from her colorectal surgeon, which was the [facility]. In addition to her anxiety, voiding, [...] the pas (more content not included)... Normal [facility] Comprehensive metabolic 2000 panelon 08-28-2023 Albumin [Mass/Vol] 3.5 g/dL Low 3.9-4.9 [facility] Comment on above: Order Comment: Speci men Type: BLOOD SPECIMENOrdering Facility: [facility] Address: [address] [place] [address] [place] [address] Performed By: #### 2 4323-8, 3024-7 ####[facility] [id number] [place] [address] [place] ALP [Catalytic activity/Vol] 52 U/L Normal 34-123 [facility] Comment on above: Order Comment: Speci men Type: BLOOD SPECIMENOrdering Facility: [facility] Address: [address] [place] [address] Performed By: #### 2 4323-8, 7 ####[facility] [id number] [place] [address] [place] ALT [Catalytic activity/Vol] 31 U/L Normal 7-38 [facility] Comment on above: Order Comment: Speci men Type: BLOOD SPECIMENOrdering Facility: [facility] Address: [address] [place] [address] Performed By: #### 2 4323-8, 7 ####[facility] [id number] [place] [address] [place] Anion gap [Moles/Vol] 10 mmol/L Normal 9-18 [facility] Comment on above: Order Comment: Speci men Type: BLOOD SPECIMENOrdering Facility: [facility] Address: [address] [place] [address] Performed By: #### 2 4323-8, 7 ####[facility] [id number] [place] [address] [place] AST [Catalytic activity/Vol] 26 U/L Normal 13-35 [facility] Comment on above: Order Comment: Speci men Type: BLOOD SPECIMENOrdering Facility: [facility] Address: [address] [place] [address] Performed By: #### 2 4323-8, 7 ####[facility] [id number] [place] [id number] [place] Bilirubin [Mass/Vol] 0.5 mg/dL Normal 0.2-1.3 [facility] Comment on above: Order Comment: Speci men Type: BLOOD SPECIMENOrdering Facility: [facility] Address: [address] [place] [address] Performed By: #### 2 4323-8, 7 ####[facility] [id number] [address] [address] [place] Calcium [Mass/Vol] 9.5 mg/dL Normal 8.5-10.2 [facility] Comment on above: Order Comment: Speci men Type: BLOOD SPECIMENOrdering Facility: [facility] Address: [address] [place] [address] Performed By: #### 2 4323-8, 3024-02 ####[facility] [id number] [place] [address] [place] Chloride [Moles/Vol] 106 mmol/L High 97-105 [facility] Comment on above: Order Comment: Speci men Type: BLOOD SPECIMENOrdering Facility: [facility] Address: [address] [place] [address] Performed By: #### 2 4323-8, 7 ####[facility] [id number] [place] [address] [place] CO2 [Moles/Vol] 24 mmol/L Normal 22-30 [facility] Comment on above: Order Comment: Speci men Type: BLOOD SPECIMENOrdering Facility: [facility] Address: [address] [place] [address] Performed By: #### 2 4323-8, 7 ####[facility] [id number] [place] [id number] [place] Creatinine [Mass/Vol] 0.75 mg/dL Normal 0.58-0.96 [facility] Comment on above: Order Comment: Speci men Type: BLOOD SPECIMENOrdering Facility: [facility] Address: [address] [place] [address] Performed By: #### 2 4323-8, 3023-7 ####[facility] [id number] [place] [address] [place] Creatinine and Glomerular filtration rate.predicted panel (S/P/Bld) 83 mL/min/1.73m??? Normal >=60 [facility] Comment on above: Order Comment: Nichole becerra Type: BLOOD SPECIMENOrdering Facility: [facility] Address: [address] [place] [address] Result Comment: Shelley mated Glomerular Filtration Rate [...] actual GFR. Performed By: #### 2 4323-8, 3027 ####[facility]IA [id number] [place] [address] [place] Glucose [Mass/Vol] 88 mg/dL Normal 74-99 [facility] Comment on above: Order Comment: Nichole becerra Type: BLOOD SPECIMENOrdering Facility: [facility] Address: [address] [place] [address] Result Comment: The [place] Diabetes Association (ADA) provides guidance for cutoff [...] Standards of Medical Care in Diabetes 2016, [place] Diabetes Association. Diabetes Care. 2016.39(Suppl 1). Performed By: #### 2 4323-8, 3024-7 ####[facility] [id number] [place] [address] [place] Potassium [Moles/Vol] 4.6 mmol/L Normal 3.7-5.1 [facility] Comment on above: Order Comment: Speci men Type: BLOOD SPECIMENOrdering Facility: [facility] Address: [address] [place] [address] Performed By: #### 2 4323-8, 7 ####[facility] [id number] [place] [address] [place] Protein [Mass/Vol] 5.9 g/dL Low 6.3-8.0 [facility] Comment on above: Order Comment: Speci men Type: BLOOD SPECIMENOrdering Facility: [facility] Address: [address] [place] [address] Performed By: #### 2 4323-8, 7 ####[facility] [id number] [place] [address] [place] Sodium [Moles/Vol] 140 mmol/L Normal 136-144 [facility] Comment on above: Order Comment: Speci men Type: BLOOD SPECIMENOrdering Facility: [facility] Address: [address] [place] [address] Performed By: #### 2 4323-8, 7 ####[facility] [id number] [place] [address] [place] Urea nitrogen [Mass/Vol] 13 mg/dL Normal 7-21 [facility] Comment on above: Order Comment: Speci men Type: BLOOD SPECIMENOrdering Facility: [facility] Address: [address] [place] [address] Performed By: #### 2 4323-8, 7 ####[facility] [id number] [place] [address] [place] LAW95pf 08-28-2023 ECG01 Ventricular Rate : 6 1 BPM Atrial Rate : 416 BPM QRS Duration : 86 ms Q-T Interval : 324 ms QTC Calculation(Bazett) : 326 ms Calculated R [place] : 82 degrees Calculated T [place] : 20 degrees ATRIAL FLUTTER WITH VARIABLE A-V CONDUCTION ABNORMAL ECG Confirmed by fellow ZIGGY CRUZ MD ([id number]) on 09/04/2023 1:50:09 PM Confirmed by MD DEJUAN, PhD, KHUSHI ([id number]) on 09/11/2023 1:23:32 PM NAME : HARJIT ASENCIO PID : [id number] : 1950 Gender : Female Race : ORD : Procedure Date : Aug 28 2023 18:02:48 Edit Date : Sep 11 2023 13:23:36 Diagnosis: ATRIAL FLUTTER WITH VARIABLE A-V CONDUCTION ABNORMAL ECG Confirmed by fellow ZIGGY CRUZ MD ([id number]) on 09/04/2023 1:50:09 PM Confirmed by MD DEJUAN, PhD, KHUSHI ([id number]) on 09/11/2023 1:23:32 PM Test Reason : Location : 23 : [facility] Overread By : MD DEJUAN, PhD,KHUSHI Edited By : MD DEJUAN, PhD,KHUSHI Referred By : , Acquired by : [id number], Normal [facility] ECHO TRANSESOPHAGEALon 08-28 ECHO TRANSESOPHAGEAL Echocardiography Report: Transesophageal Echo [facility] J1-5 Date of service: 08/28/2023 3:59:19 PM BRAND Ordering physician: CARLITOS ROLLINS Indication: Pre Cardioversion, [...] * * * Final * * * [employer] [facility] [employer] : [id number] amicsSISUID Normal [facility] NURSING PROGon 08-28-2023 NURSING PROG HNO ID: [id number] Author: GISELLE SANTANA RN Service: ? Author [...] Giselle Santana RN In Department: CARDIOLOGY Normal [facility] PT EDon 08-28-2023 PT ED HNO ID: [id number] Author: DENISHA SIERRA RN Service: ? Author [...] discussed with Physician, nurse practitioner or Physician child welfare assistant upon discharge Instructions for transmitting EKG to Monitoring Center 3 month follow up instructions Contact number for information and questions Patient Evaluation: Verbalizes understanding Follow Up Plan: Follow up as needed Supplemental Material Given: None Instructed By Denisha Sierra RN. In Department of [id number]. Normal [facility] PT ED HNO ID: [id number] Author: MARGARET MARCELINO RN Service: Nursing Author [...] By Margaret Marcelino RN. In Department of LIM936. [facility] T4 Free SerPl-mCncon 024 Free T4 [Mass/Vol] 1.1 ng/dL Normal 0.9-1.7 [facility] Comment on above: Order Comment: Speci men Type: BLOOD SPECIMEN Ordering Facility: [facility] Address: [address] [place] [address] Performed By: #### 1 9123-9, 52153-5 #### [facility] CLIA [id number] [address] [place] [address] [place] CBC panel Auto (Bld)on 08-27 Erythrocyte distribution width (RBC) [Ratio] 12.8 % Normal 11.5-15.0 [facility] Comment on above: Order Comment: Speci men Type: BLOOD SPECIMEN Ordering Facility: [facility] Address: [address] [place] [address] Performed By: #### 5 8410-2 #### [facility] CLIA [id number] [address] [place] [address] [place] Hematocrit (Bld) [Volume fraction] 38.9 % Normal 36.0-46.0 [facility] Comment on above: Order Comment: Speci men Type: BLOOD SPECIMEN Ordering Facility: [facility] Address: [address] [place] [address] Performed By: #### 5 8410-2 #### [facility] CLIA [id number] [address] [place] [address] [place] Hemoglobin (Bld) [Mass/Vol] 12.7 g/dL Normal 11.5-15.5 [facility] Comment on above: Order Comment: Speci men Type: BLOOD SPECIMEN Ordering Facility: [facility] Address: [address] [place] [address] Performed By: #### 5 8410-2 #### [facility] CLIA [id number] [address] [place] [address] [place] MCH (RBC) [Entitic mass] 29.4 pg Normal 26.0-34.0 [facility] Comment on above: Order Comment: Speci men Type: BLOOD SPECIMEN Ordering Facility: [facility] Address: [address] [place] [address] Performed By: #### 5 8410-2 #### [facility] CLIA [id number] [address] [place] [address] [place] MCHC (RBC) [Mass/Vol] 32.6 g/dL Normal 30.5-36.0 [facility] Comment on above: Order Comment: Speci men Type: BLOOD SPECIMEN Ordering Facility: [facility] Address: [address] [place] [address] Performed By: #### 5 8410-2 #### [facility] CLIA [id number] [address] [place] [address] [place] MCV (RBC) [Entitic vol] 90.0 fL Normal 80.0-100.0 [facility] Comment on above: Order Comment: Speci men Type: BLOOD SPECIMEN Ordering Facility: [facility] Address: [address] [place] [address] Performed By: #### 5 8410-2 #### [facility] CLIA [id number] [address] [place] [address] [place] Nucleated RBC (Bld) [#/Vol] 10*3/uL Normal <0.01 [facility] Comment on above: Order Comment: Speci men Type: BLOOD SPECIMEN Ordering Facility: [facility] Address: [address] [place] [address] Performed By: #### 5 8410-2 #### [facility] CLIA [id number] [address] [place] [address] [place] Platelet mean volume (Bld) [Entitic vol] 10.4 fL Normal 9.0-12.7 [facility] Comment on above: Order Comment: Speci men Type: BLOOD SPECIMEN Ordering Facility: [facility] Address: [address] [place] [address] Performed By: #### 5 8410-2 #### [facility] CLIA [id number] [address] [place] [address] [place] Platelets (Bld) [#/Vol] 143 10*3/uL Low 150-400 [facility] Comment on above: Order Comment: Speci men Type: BLOOD SPECIMEN Ordering Facility: [facility] Address: [address] [place] [address] Performed By: #### 5 8410-2 #### [facility] CLIA [id number] [address] [place] [address] [place] RBC (Bld) [#/Vol] 4.32 10*6/uL Normal 3.90-5.[address] [facility] Comment on above: Order Comment: Speci men Type: BLOOD SPECIMEN Ordering Facility: [facility] Address: [address] [place] [address] Performed By: #### 5 8410-2 #### [facility] CLIA [id number] [address] [place] [address] [place] WBC (Bld) [#/Vol] 5.61 10*3/uL Normal 3.70-11.[address] [facility] Comment on above: Order Comment: Speci men Type: BLOOD SPECIMEN Ordering Facility: [facility] Address: [address] [place] [address] Performed By: #### 5 8410-2 #### [facility] CLIA [id number] [address] [place] [address] [place] Comprehensive metabolic 2000 panelon 08-27-2023 Albumin [Mass/Vol] 3.6 g/dL Low 3.9-4.9 [facility] Comment on above: Order Comment: Speci men Type: BLOOD SPECIMEN Ordering Facility: [facility] Address: [address] [place] [address] Performed By: #### 3 016-3, 67106-7 #### [facility] CLIA [id number] [address] [place] [address] [place] ALP [Catalytic activity/Vol] 59 U/L Normal 34-123 [facility] Comment on above: Order Comment: Speci men Type: BLOOD SPECIMEN Ordering Facility: [facility] Address: [address] [place] [address] Performed By: #### 3 016-3, #### [facility] CLIA [id number] [address] [place] [address] [place] ALT [Catalytic activity/Vol] 29 U/L Normal 7-38 [facility] Comment on above: Order Comment: Speci men Type: BLOOD SPECIMEN Ordering Facility: [facility] Address: [address] [place] [address] Performed By: #### 3 016-3, #### [facility] CLIA [id number] [address] [place] [address] [place] Anion gap [Moles/Vol] 8 mmol/L Low 9-18 [facility] Comment on above: Order Comment: Speci men Type: BLOOD SPECIMEN Ordering Facility: [facility] Address: [address] [place] [address] Performed By: #### 3 016-3, #### [facility] CLIA [id number] [address] [place] [address] [place] AST [Catalytic activity/Vol] 27 U/L Normal 13-35 [facility] Comment on above: Order Comment: Speci men Type: BLOOD SPECIMEN Ordering Facility: [facility] Address: [address] [place] [address] Performed By: #### 3 016-3, 11602-1 #### [facility] CLIA [id number] [address] [place] [address] [place] Bilirubin [Mass/Vol] 0.5 mg/dL Normal 0.2-1.3 [facility] Comment on above: Order Comment: Speci men Type: BLOOD SPECIMEN Ordering Facility: [facility] Address: [address] [place] [address] Performed By: #### 3 016-3, #### [facility] CLIA [id number] [address] [place] [address] [place] Calcium [Mass/Vol] 9.1 mg/dL Normal 8.5-10.2 [facility] Comment on above: Order Comment: Speci men Type: BLOOD SPECIMEN Ordering Facility: [facility] Address: [address] [place] [id number] Performed By: #### 3 -3, #### [facility] CLIA [id number] [address] [place] [address] [place] Chloride [Moles/Vol] 105 mmol/L Normal 97-105 [facility] Comment on above: Order Comment: Speci men Type: BLOOD SPECIMEN Ordering Facility: [facility] Address: [address] [place] [address] Performed By: #### 3 3, #### [facility] CLIA [id number] [address] [place] [address] [place] CO2 [Moles/Vol] 27 mmol/L Normal 22-30 [facility] Comment on above: Order Comment: Speci men Type: BLOOD SPECIMEN Ordering Facility: [facility] Address: [address] [place] [id number] Performed By: #### 3 3, #### [facility] CLIA [id number] [address] [place] [id number] [place] Creatinine [Mass/Vol] 0.72 mg/dL Normal 0.58-0.96 [facility] Comment on above: Order Comment: Speci men Type: BLOOD SPECIMEN Ordering Facility: [facility] Address: [address] [place] [id number] Performed By: #### 3 016-3, 06253-2 #### [facility] CLIA [id number] [address] [place] [address] [place] Creatinine and Glomerular filtration rate.predicted panel (S/P/Bld) 87 mL/min/1.73m??? Normal >=60 [facility] Comment on above: Order Comment: Nichole becerra Type: BLOOD SPECIMEN Ordering Facility: [facility] Address: [address] [place] [address] Result Comment: Shelley mated Glomerular Filtration Rate [...] reflect actual GFR. Performed By: #### 3 016-3, 89205-3 #### [facility] CLIA [id number] [facility] [place] [address] [place] Glucose [Mass/Vol] 92 mg/dL Normal 74-99 [facility] Comment on above: Order Comment: Nichole becerra Type: BLOOD SPECIMEN Ordering Facility: [facility] Address: [address] [place] [address] Result Comment: The [place] Diabetes Association (ADA) provides guidance for cutoff [...] Standards of Medical Care in Diabetes 2016, [place] Diabetes Association. Diabetes Care. 2016.39(Suppl 1). Performed By: #### 3 016-3, 54263-3 #### [facility] CLIA [id number] [address] [place] [address] [place] Potassium [Moles/Vol] 4.7 mmol/L Normal 3.7-5.1 [facility] Comment on above: Order Comment: Speci men Type: BLOOD SPECIMEN Ordering Facility: [facility] Address: [address] [place] [address] Performed By: #### 3 016-3, #### [facility] CLIA [id number] [address] [place] [address] [place] Protein [Mass/Vol] 5.8 g/dL Low 6.3-8.0 [facility] Comment on above: Order Comment: Speci men Type: BLOOD SPECIMEN Ordering Facility: [facility] Address: [address] [place] [address] Performed By: #### 3 016-3, #### [facility] CLIA [id number] [address] [place] [address] [place] Sodium [Moles/Vol] 140 mmol/L Normal 136-144 [facility] Comment on above: Order Comment: Speci men Type: BLOOD SPECIMEN Ordering Facility: [facility] Address: [address] [place] [address] Performed By: #### 3 016-3, #### [facility] CLIA [id number] [address] [place] [address] [place] Urea nitrogen [Mass/Vol] 15 mg/dL Normal 7-21 [facility] Comment on above: Order Comment: Speci men Type: BLOOD SPECIMEN Ordering Facility: [facility] Address: [address] [place] [address] Performed By: #### 3 016-3, #### [facility] CLIA [id number] [address] [place] [address] [place] TSH SerPl-aCncon 08-27-2023 TSH Qn 9.850 m[IU]/L High 0.270-4.200 [facility] Comment on above: Order Comment: Speci men Type: BLOOD SPECIMEN Ordering Facility: [facility] Address: [address] [place] [address] Performed By: #### 3 016-3, 93898-8 #### [facility] CLIA [id number] [address] [facility] DESK [id number] [place] [address] [place] Bacteria Ur Culton [...] , Intermediate >32 , Resistant >64 Abnormal [facility] Comment on above: Performed By: #### 6 30-4 ####[facility] [id number] [place] [address] [place] CBC panel Auto (Bld)on 08-26 Erythrocyte distribution width (RBC) [Ratio] 13.1 % Normal 11.5-15.0 [facility] Comment on above: Order Comment: Speci men Type: BLOOD SPECIMENOrdering Facility: [facility] Address: [address] [place] [address] Performed By: #### 5 8410-2 ####[facility] [id number] [place] [address] [place] Hematocrit (Bld) [Volume fraction] 38.5 % Normal 36.0-46.0 [facility] Comment on above: Order Comment: Speci men Type: BLOOD SPECIMENOrdering Facility: [facility] Address: [address] [place] [address] Performed By: #### 5 8410-2 ####[facility] [id number] [place] [address] [place] Hemoglobin (Bld) [Mass/Vol] 12.8 g/dL Normal 11.5-15.5 [facility] Comment on above: Order Comment: Speci men Type: BLOOD SPECIMENOrdering Facility: [facility] Address: [address] [place] [address] Performed By: #### 5 8410-2 ####[facility] [id number] [place] [address] [place] MCH (RBC) [Entitic mass] 30.0 pg Normal 26.0-34.0 [facility] Comment on above: Order Comment: Speci men Type: BLOOD SPECIMENOrdering Facility: [facility] Address: [address] [place] [address] Performed By: #### 5 8410-2 ####[facility] [id number] [place] [address] [place] MCHC (RBC) [Mass/Vol] 33.2 g/dL Normal 30.5-36.0 [facility] Comment on above: Order Comment: Speci men Type: BLOOD SPECIMENOrdering Facility: [facility] Address: [address] [place] [address] Performed By: #### 5 8410-2 ####[facility] [id number] [place] [address] [place] MCV (RBC) [Entitic vol] 90.4 fL Normal 80.0-100.0 [facility] Comment on above: Order Comment: Speci men Type: BLOOD SPECIMENOrdering Facility: [facility] Address: [address] [place] [address] Performed By: #### 5 8410-2 ####[facility] [id number] [place] [address] [place] Nucleated RBC (Bld) [#/Vol] 10*3/uL Normal <0.01 [facility] Comment on above: Order Comment: Speci men Type: BLOOD SPECIMENOrdering Facility: [facility] Address: [address] [place] [address] Performed By: #### 5 8410-2 ####[facility] [id number] [place] [address] [place] Platelet mean volume (Bld) [Entitic vol] 10.6 fL Normal 9.0-12.7 [facility] Comment on above: Order Comment: Speci men Type: BLOOD SPECIMENOrdering Facility: [facility] Address: [address] [place] [address] Performed By: #### 5 8410-2 ####[facility]IA [id number] [place] [address] [place] Platelets (Bld) [#/Vol] 168 10*3/uL Normal 150-400 [facility] Comment on above: Order Comment: Speci men Type: BLOOD SPECIMENOrdering Facility: [facility] Address: [address] [place] [address] Performed By: #### 5 8410-2 ####[facility]IA [id number] [place] [address] [place] RBC (Bld) [#/Vol] 4.26 10*6/uL Normal 3.90-5.[address] [facility] Comment on above: Order Comment: Speci men Type: BLOOD SPECIMENOrdering Facility: [facility] Address: [address] [place] [address] Performed By: #### 5 8410-2 ####[facility]IA [id number] [place] [address] [place] WBC (Bld) [#/Vol] 7.27 10*3/uL Normal 3.70-11.[address] [facility] Comment on above: Order Comment: Speci men Type: BLOOD SPECIMENOrdering Facility: [facility] Address: [address] [place] [address] Performed By: #### 5 8410-2 ####[facility]IA [id number] [address] [facility] CONSULTon 08-26-2023 CONSULT HNO ID: [id number] Author: AMARIS GRACE MD Service: Urology Author Type: Resident Type: Consults Filed: 08/26/2023 16:29 Note Text: Attestation signed by Stefan Kan MD at 08/27/2023 6:02 PM Urology Staff Note: The plan was reviewed with resident and agree with findings, with additions, alterations, and confirmations noted below. Pending UCX. Follow up as noted. Stefan Kan MD Male Genitourinary Reconstruction AND Prosthetic Surgery Fellow [facility] UROLOGY CONSULT NOTE [...] urethra -Will request outpatient follow up with [facility] provider to evaluate nature of voiding dysfunction, urethral stricture To be discussed with second affiliate Dr. Lucius Grace MD Resident PGY-2 Urology [facility] [place] [facility] Pager [phone] After 5pm and weekends please page Urology construction trades teacher [phone] 3:37 PM 08/26/2023 HPI Harjit Asencio is [...] 2012, had urodynamics and was seen by [facility] urology here at [facility] at that time. More recently [...] 8 MILA (more content not included)... Normal [facility] Comprehensive metabolic 2000 panelon 08-26-2023 Albumin [Mass/Vol] 3.5 g/dL Low 3.9-4.9 [facility] Comment on above: Order Comment: Speci men Type: BLOOD SPECIMEN Ordering Facility: [facility] Address: [address] [place] [address] Performed By: #### 1 9123-9, 85397-9 #### [facility] CLIA [id number] [address] [place] [address] [place] ALP [Catalytic activity/Vol] 60 U/L Normal 34-123 [facility] Comment on above: Order Comment: Speci men Type: BLOOD SPECIMEN Ordering Facility: [facility] Address: [address] [place] [address] Performed By: #### 1 9123-9, 76558-7 #### [facility] CLIA [id number] [address] [place] [address] [place] ALT [Catalytic activity/Vol] 25 U/L Normal 7-38 [facility] Comment on above: Order Comment: Speci men Type: BLOOD SPECIMEN Ordering Facility: [facility] Address: [address] [place] [address] Performed By: #### 1 9123-9, 02630-4 #### [facility] CLIA [id number] [address] [place] [address] [place] Anion gap [Moles/Vol] 10 mmol/L Normal 9-18 [facility] Comment on above: Order Comment: Speci men Type: BLOOD SPECIMEN Ordering Facility: [facility] Address: [address] [place] [address] Performed By: #### 1 9123-9, 14089-2 #### [facility] CLIA [id number] [address] [place] [address] [place] AST [Catalytic activity/Vol] 22 U/L Normal 13-35 [facility] Comment on above: Order Comment: Speci men Type: BLOOD SPECIMEN Ordering Facility: [facility] Address: [address] [place] [address] Performed By: #### 1 9123-9, 48956-2 #### [facility] CLIA [id number] [address] [place] [address] [place] Bilirubin [Mass/Vol] 0.4 mg/dL Normal 0.2-1.3 [facility] Comment on above: Order Comment: Speci men Type: BLOOD SPECIMEN Ordering Facility: [facility] Address: [address] [place] [address] Performed By: #### 1 9123-9, 73545-0 #### [facility] CLIA [id number] [address] [place] [address] [place] Calcium [Mass/Vol] 8.9 mg/dL Normal 8.5-10.2 [facility] Comment on above: Order Comment: Speci men Type: BLOOD SPECIMEN Ordering Facility: [facility] Address: [address] [place] [address] Performed By: #### 1 9123-9, 85688-4 #### [facility] CLIA [id number] [address] [place] [address] [place] Chloride [Moles/Vol] 104 mmol/L Normal 97-105 [facility] Comment on above: Order Comment: Speci men Type: BLOOD SPECIMEN Ordering Facility: [facility] Address: [address] [place] [address] Performed By: #### 1 9123-9, #### [facility] CLIA [id number] [address] [place] [address] [place] CO2 [Moles/Vol] 26 mmol/L Normal 22-30 [facility] Comment on above: Order Comment: Speci men Type: BLOOD SPECIMEN Ordering Facility: [facility] Address: [address] [place] [address] Performed By: #### 1 9123-9, #### [facility] CLIA [id number] [address] [place] [address] [place] Creatinine [Mass/Vol] 0.84 mg/dL Normal 0.58-0.96 [facility] Comment on above: Order Comment: Speci men Type: BLOOD SPECIMEN Ordering Facility: [facility] Address: [address] [place] [address] Performed By: #### 1 9123-9, #### [facility] CLIA [id number] [address] [place] [address] [place] Creatinine and Glomerular filtration rate.predicted panel (S/P/Bld) 73 mL/min/1.73m??? Normal >=60 [facility] Comment on above: Order Comment: Speci men Type: BLOOD SPECIMEN Ordering Facility: [facility] Address: [address] [place] [address] Result Comment: Shelley mated Glomerular Filtration Rate [...] actual GFR. Performed By: #### 1 9123-9, 78733-6 #### [facility] CLIA [id number] [address] [place] [address] [place] Glucose [Mass/Vol] 93 mg/dL Normal 74-99 [facility] Comment on above: Order Comment: Nichole becerra Type: BLOOD SPECIMEN Ordering Facility: [facility] Address: [address] [place] [address] Result Comment: [place] Diabetes Association (ADA) provides guidance for cutoff [...] Standards of Medical Care in Diabetes 2016, [place] Diabetes Association. Diabetes Care. 2016.39(Suppl 1). Performed By: #### 1 9123-9, 83556-4 #### [facility] CLIA [id number] [address] [place] [address] [place] Potassium [Moles/Vol] 4.4 mmol/L Normal 3.7-5.1 [facility] Comment on above: Order Comment: Césari men Type: BLOOD SPECIMEN Ordering Facility: [facility] Address: [address] [place] [address] Performed By: #### 1 9123-9, #### [facility] CLIA [id number] [address] [place] [address] [place] Protein [Mass/Vol] 5.7 g/dL Low 6.3-8.0 [facility] Comment on above: Order Comment: Césari men Type: BLOOD SPECIMEN Ordering Facility: [facility] Address: [address] [place] [address] Performed By: #### 1 9123-9, #### [facility] CLIA [id number] [address] [place] [address] [place] Sodium [Moles/Vol] 140 mmol/L Normal 136-144 [facility] Comment on above: Order Comment: Speci men Type: BLOOD SPECIMEN Ordering Facility: [facility] Address: [address] [place] [address] Performed By: #### 1 9123-9, 94752-0 #### [facility] CLIA [id number] [address] [place] [address] [place] Urea nitrogen [Mass/Vol] 19 mg/dL Normal 7-21 [facility] Comment on above: Order Comment: Speci men Type: BLOOD SPECIMEN Ordering Facility: [facility] Address: [address] [place] [address] Performed By: #### 1 9123-9, 06870-1 #### [facility] CLIA [id number] [address] [place] [address] [place] CBC panel Auto (Bld)on 08-25 Erythrocyte distribution width (RBC) [Ratio] 12.9 % Normal 11.5-15.0 [facility] Comment on above: Order Comment: Speci men Type: BLOOD SPECIMEN Ordering Facility: [facility] Address: [address] [place] [address] Performed By: #### 1 9123-9, #### [facility] CLIA [id number] [address] [place] [address] [place] Hematocrit (Bld) [Volume fraction] 37.8 % Normal 36.0-46.0 [facility] Comment on above: Order Comment: Speci men Type: BLOOD SPECIMEN Ordering Facility: [facility] Address: [address] [place] [address] Performed By: #### 1 9123-9, 10660-4 #### [facility] CLIA [id number] [address] [place] [address] [place] Hemoglobin (Bld) [Mass/Vol] 12.8 g/dL Normal 11.5-15.5 [facility] Comment on above: Order Comment: Speci men Type: BLOOD SPECIMEN Ordering Facility: [facility] Address: [address] [place] [address] Performed By: #### 1 9123-9, 98767-2 #### [facility] CLIA [id number] [address] [place] [address] [place] MCH (RBC) [Entitic mass] 29.9 pg Normal 26.0-34.0 [facility] Comment on above: Order Comment: Speci men Type: BLOOD SPECIMEN Ordering Facility: [facility] Address: [address] [place] [address] Performed By: #### 1 9123-9, 01385-8 #### [facility] CLIA [id number] [address] [place] [address] [place] MCHC (RBC) [Mass/Vol] 33.9 g/dL Normal 30.5-36.0 [facility] Comment on above: Order Comment: Speci men Type: BLOOD SPECIMEN Ordering Facility: [facility] Address: [address] [place] [address] Performed By: #### 1 9123-9, 83290-7 #### [facility] CLIA [id number] [address] [place] [address] [place] MCV (RBC) [Entitic vol] 88.3 fL Normal 80.0-100.0 [facility] Comment on above: Order Comment: Speci men Type: BLOOD SPECIMEN Ordering Facility: [facility] Address: [address] [place] [address] Performed By: #### 1 9123-9, 20416-0 #### [facility] CLIA [id number] [address] [place] [address] [place] Nucleated RBC (Bld) [#/Vol] 10*3/uL Normal <0.01 [facility] Comment on above: Order Comment: Speci men Type: BLOOD SPECIMEN Ordering Facility: [facility] Address: [address] [place] [address] Performed By: #### 1 9123-9, 38296-1 #### [facility] CLIA [id number] [address] [place] [address] [place] Platelet mean volume (Bld) [Entitic vol] 10.1 fL Normal 9.0-12.7 [facility] Comment on above: Order Comment: Speci men Type: BLOOD SPECIMEN Ordering Facility: [facility] Address: [address] [place] [address] Performed By: #### 1 9123-9, 17827-9 #### [facility] CLIA [id number] [address] [place] [address] [place] Platelets (Bld) [#/Vol] 173 10*3/uL Normal 150-400 [facility] Comment on above: Order Comment: Speci men Type: BLOOD SPECIMEN Ordering Facility: [facility] Address: [address] [place] [address] Performed By: #### 1 9123-9, 61074-0 #### [facility] CLIA [id number] [address] [place] [address] [place] RBC (Bld) [#/Vol] 4.28 10*6/uL Normal 3.90-5.[address] [facility] Comment on above: Order Comment: Speci men Type: BLOOD SPECIMEN Ordering Facility: [facility] Address: [address] [place] [address] Performed By: #### 1 9123-9, 07583-9 #### [facility] CLIA [id number] [address] [place] [address] [place] WBC (Bld) [#/Vol] 6.38 10*3/uL Normal 3.70-11.[address] [facility] Comment on above: Order Comment: Speci men Type: BLOOD SPECIMEN Ordering Facility: [facility] Address: [address] [place] [address] Performed By: #### 1 9123-9, 54955-8 #### [facility] CLIA [id number] [address] [address] [place] Comprehensive metabolic 2000 panelon 08-25-2023 Albumin [Mass/Vol] 3.4 g/dL Low 3.9-4.9 [facility] Comment on above: Order Comment: Speci men Type: BLOOD SPECIMEN Ordering Facility: [facility] Address: [address] [place] [address] Performed By: #### 1 9123-9, #### [facility] CLIA [id number] [address] [place] [id number] [place] ALP [Catalytic activity/Vol] 48 U/L Normal 34-123 [facility] Comment on above: Order Comment: Speci men Type: BLOOD SPECIMEN Ordering Facility: [facility] Address: [address] [place] [address] Performed By: #### 1 9123-9, #### [facility] CLIA [id number] [address] [place] [address] [place] ALT [Catalytic activity/Vol] 26 U/L Normal 7-38 [facility] Comment on above: Order Comment: Speci men Type: BLOOD SPECIMEN Ordering Facility: [facility] Address: [address] [place] [address] Performed By: #### 1 9123-9, 85668-0 #### [facility] CLIA [id number] [address] [place] [id number] [place] Anion gap [Moles/Vol] 10 mmol/L Normal 9-18 [facility] Comment on above: Order Comment: Speci men Type: BLOOD SPECIMEN Ordering Facility: [facility] Address: [address] [place] [address] Performed By: #### 1 9123-9, 76612-5 #### [facility] CLIA [id number] [address] [place] [address] [place] AST [Catalytic activity/Vol] 23 U/L Normal 13-35 [facility] Comment on above: Order Comment: Speci men Type: BLOOD SPECIMEN Ordering Facility: [facility] Address: [address] [place] [address] Performed By: #### 1 9123-9, #### [facility] CLIA [id number] [address] [place] [address] [place] Bilirubin [Mass/Vol] 0.9 mg/dL Normal 0.2-1.3 [facility] Comment on above: Order Comment: Speci men Type: BLOOD SPECIMEN Ordering Facility: [facility] Address: [address] [place] [address] Performed By: #### 1 23-9, #### [facility] CLIA [id number] [address] [place] [address] [place] Calcium [Mass/Vol] 9.0 mg/dL Normal 8.5-10.2 [facility] Comment on above: Order Comment: Speci men Type: BLOOD SPECIMEN Ordering Facility: [facility] Address: [address] [place] [address] Performed By: #### 1 9123-9, 84625-8 #### [facility] CLIA [id number] [address] [place] [address] [place] Chloride [Moles/Vol] 97 mmol/L Normal 97-105 [facility] Comment on above: Order Comment: Speci men Type: BLOOD SPECIMEN Ordering Facility: [facility] Address: [address] [place] [id number] Performed By: #### 1 9123-9, 05717-5 #### [facility] CLIA [id number] [address] [place] [address] [place] CO2 [Moles/Vol] 29 mmol/L Normal 22-30 [facility] Comment on above: Order Comment: Césari men Type: BLOOD SPECIMEN Ordering Facility: [facility] Address: [address] [place] [address] Performed By: #### 1 9123-9, #### [facility] CLIA [id number] [facility] [place] [address] [place] Creatinine [Mass/Vol] 1.02 mg/dL High 0.58-0.96 [facility] Comment on above: Order Comment: Césari men Type: BLOOD SPECIMEN Ordering Facility: [facility] Address: [address] [place] [address] Performed By: #### 1 9123-9, #### [facility] CLIA [id number] [address] [place] [address] [place] Creatinine and Glomerular filtration rate.predicted panel (S/P/Bld) 57 mL/min/1.73m??? Low >=60 [facility] Comment on above: Order Comment: Nichole becerra Type: BLOOD SPECIMEN Ordering Facility: [facility] Address: [address] [place] [address] Result Comment: Shelley mated Glomerular Filtration Rate [...] actual GFR. Performed By: #### 1 9123-9, #### [facility] CLIA [id number] [address] [place] [address] [place] Glucose [Mass/Vol] 84 mg/dL Normal 74-99 [facility] Comment on above: Order Comment: Césari men Type: BLOOD SPECIMEN Ordering Facility: [facility] Address: [address] [place] [address] Result Comment: The [place] Diabetes Association (ADA) provides guidance for cutoff [...] Standards of Medical Care in Diabetes 2016, [place] Diabetes Association. Diabetes Care. 2016.39(Suppl 1). Performed By: #### 1 9123-9, #### [facility] CLIA [id number] [address] [place] [address] [place] Potassium [Moles/Vol] 3.4 mmol/L Low 3.7-5.1 [facility] Comment on above: Order Comment: Speci men Type: BLOOD SPECIMEN Ordering Facility: [facility] Address: [address] [place] [address] Performed By: #### 1 9123-9, #### [facility] CLIA [id number] [address] [place] [address] [place] Protein [Mass/Vol] 5.7 g/dL Low 6.3-8.0 [facility] Comment on above: Order Comment: Speci men Type: BLOOD SPECIMEN Ordering Facility: [facility] Address: [address] [place] [address] Performed By: #### 1 9123-9, #### [facility] CLIA [id number] [facility] [place] [address] [place] Sodium [Moles/Vol] 136 mmol/L Normal 136-144 [facility] Comment on above: Order Comment: Speci men Type: BLOOD SPECIMEN Ordering Facility: [facility] Address: [address] [place] [address] Performed By: #### 1 9123-9, 19451-1 #### [facility] CLIA [id number] [address] [place] [address] [place] Urea nitrogen [Mass/Vol] 22 mg/dL High 7-21 [facility] Comment on above: Order Comment: Speci men Type: BLOOD SPECIMEN Ordering Facility: [facility] Address: [address] [place] [address] Performed By: #### 1 9123-9, 11241-7 #### [facility] CLIA [id number] [address] [place] [address] [place] Magnesium SerPl-mCncon 08-25 Magnesium [Mass/Vol] 2.2 mg/dL Normal 1.7-2.3 [facility] Comment on above: Order Comment: Speci men Type: BLOOD SPECIMEN Ordering Facility: [facility] Address: [address] [place] [address] Performed By: #### 1 9123-9, 12820-2 #### [facility] CLIA [id number] [address] [place] [address] [place] POTASSIUM BLDon 08-25-2023 Potassium [Moles/Vol] 4.3 mmol/L Normal 3.7-5.1 [facility] Comment on above: Order Comment: Speci men Type: BLOOD SPECIMEN Ordering Facility: [facility] Address: [address] [place] [address] Performed By: #### 1 9123-9, 12891-6 #### [facility] CLIA [id number] [address] [place], [place] [id number] [place] US KIDNEY/BLADDERon 08-25-19 [...] Bladder: Normal sonographic appearance. IMPRESSION: NO HYDRONEPHROSIS. 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[employer]: LILIANA Transcribe Date/Time: Aug 25 2023 10:35A Dictated by : NANCY YOUNGBLOOD MD This examination was interpreted and the report reviewed and electronically signed by: NANCY YOUNGBLOOD MD on Aug 25 2023 10:38AM EST [id number] Normal [facility] CBC W Auto Differential pane l (Bld)on 08-24-2023 Basophils (Bld) [#/Vol] 0.03 10*3/uL Normal <0.11 [facility] Comment on above: Order Comment: Speci men Type: BLOOD SPECIMEN Ordering Facility: [facility] Address: [address] [place] [address] Performed By: #### 5 8410-2 #### [facility] CLIA [id number] [facility] [place] [address] [place] Basophils/100 WBC (Bld) 0.4 % Normal [facility] Comment on above: Order Comment: Speci men Type: BLOOD SPECIMEN Ordering Facility: [facility] Address: [address] [place] [address] Performed By: #### 5 8410-2 #### [facility] CLIA [id number] [address] [place] [address] [place] Differential cell count method Nom (Bld) Auto Normal [facility] Comment on above: Order Comment: Speci men Type: BLOOD SPECIMEN Ordering Facility: [facility] Address: [address] [place] [address] Performed By: #### 5 8410-2 #### [facility] CLIA [id number] [address] [place] [address] [place] Eosinophils (Bld) [#/Vol] 0.03 10*3/uL Normal <0.46 [facility] Comment on above: Order Comment: Speci men Type: BLOOD SPECIMEN Ordering Facility: [facility] Address: [address] [place] [address] Performed By: #### 5 8410-2 #### [facility] CLIA [id number] [address] [place] [address] [place] Eosinophils/100 WBC (Bld) 0.4 % Normal [facility] Comment on above: Order Comment: Speci men Type: BLOOD SPECIMEN Ordering Facility: [facility] Address: [address] [place] [address] Performed By: #### 5 8410-2 #### [facility] CLIA [id number] [address] [place] [address] [place] Erythrocyte distribution width (RBC) [Ratio] 12.7 % Normal 11.5-15.0 [facility] Comment on above: Order Comment: Speci men Type: BLOOD SPECIMEN Ordering Facility: [facility] Address: [address] [place] [address] Performed By: #### 5 8410-2 #### [facility] CLIA [id number] [address] [place] [address] [place] Hematocrit (Bld) [Volume fraction] 40.4 % Normal 36.0-46.0 [facility] Comment on above: Order Comment: Speci men Type: BLOOD SPECIMEN Ordering Facility: [facility] Address: [address] [place] [address] Performed By: #### 5 8410-2 #### [facility] CLIA [id number] [address] [place] [address] [place] Hemoglobin (Bld) [Mass/Vol] 13.2 g/dL Normal 11.5-15.5 [facility] Comment on above: Order Comment: Speci men Type: BLOOD SPECIMEN Ordering Facility: [facility] Address: [address] [place] [address] Performed By: #### 5 8410-2 #### [facility] CLIA [id number] [address] [place] [address] [place] Immature granulocytes (Bld) [#/Vol] 10*3/uL Normal <0.10 [facility] Comment on above: Order Comment: Speci men Type: BLOOD SPECIMEN Ordering Facility: [facility] Address: [address] [place] [address] Performed By: #### 5 8410-2 #### [facility] CLIA [id number] [address] [place] [address] [place] Immature granulocytes/100 WBC (Bld) 0.3 % Normal [facility] Comment on above: Order Comment: Speci men Type: BLOOD SPECIMEN Ordering Facility: [facility] Address: [address] [place] [address] Performed By: #### 5 8410-2 #### [facility] CLIA [id number] [address] [place] [address] [place] Lymphocytes (Bld) [#/Vol] 1.73 10*3/uL Normal 1.00-4.00 [facility] Comment on above: Order Comment: Speci men Type: BLOOD SPECIMEN Ordering Facility: [facility] Address: [address] [place] [address] Performed By: #### 5 8410-2 #### [facility] CLIA [id number] [address] [place] [address] [place] Lymphocytes/100 WBC (Bld) 23.4 % Normal [facility] Comment on above: Order Comment: Speci men Type: BLOOD SPECIMEN Ordering Facility: [facility] Address: [address] [place] [address] Performed By: #### 5 8410-2 #### [facility] CLIA [id number] [address] [place] [address] [place] MCH (RBC) [Entitic mass] 29.3 pg Normal 26.0-34.0 [facility] Comment on above: Order Comment: Speci men Type: BLOOD SPECIMEN Ordering Facility: [facility] Address: [address] [place] [address] Performed By: #### 5 8410-2 #### [facility] CLIA [id number] [address] [place] [address] [place] MCHC (RBC) [Mass/Vol] 32.7 g/dL Normal 30.5-36.0 [facility] Comment on above: Order Comment: Speci men Type: BLOOD SPECIMEN Ordering Facility: [facility] Address: [address] [place] [address] Performed By: #### 5 8410-2 #### [facility] CLIA [id number] [address] [place] [address] [place] MCV (RBC) [Entitic vol] 89.8 fL Normal 80.0-100.0 [facility] Comment on above: Order Comment: Speci men Type: BLOOD SPECIMEN Ordering Facility: [facility] Address: [address] [place] [address] Performed By: #### 5 8410-2 #### [facility] CLIA [id number] [address] [place] [address] [place] Monocytes (Bld) [#/Vol] 0.77 10*3/uL Normal <0.87 [facility] Comment on above: Order Comment: Speci men Type: BLOOD SPECIMEN Ordering Facility: [facility] Address: [address] [place] [address] Performed By: #### 5 8410-2 #### [facility] CLIA [id number] [address] [place] [id number] [place] Monocytes/100 WBC (Bld) 10.4 % Normal [facility] Comment on above: Order Comment: Speci men Type: BLOOD SPECIMEN Ordering Facility: [facility] Address: [address] [place] [address] Performed By: #### 5 8410-2 #### [facility] CLIA [id number] [address] [place] [address] [place] Neutrophils (Bld) [#/Vol] 4.82 10*3/uL Normal 1.45-7.50 [facility] Comment on above: Order Comment: Speci men Type: BLOOD SPECIMEN Ordering Facility: [facility] Address: [address] [place] [address] Performed By: #### 5 8410-2 #### [facility] CLIA [id number] [address] [place] [address] [place] Neutrophils/100 WBC (Bld) 65.1 % Normal [facility] Comment on above: Order Comment: Speci men Type: BLOOD SPECIMEN Ordering Facility: [facility] Address: [address] [place] [address] Performed By: #### 5 8410-2 #### [facility] CLIA [id number] [address] [place] [address] [place] Nucleated RBC (Bld) [#/Vol] 10*3/uL Normal <0.01 [facility] Comment on above: Order Comment: Speci men Type: BLOOD SPECIMEN Ordering Facility: [facility] Address: [address] [place] [address] Performed By: #### 5 8410-2 #### [facility] CLIA [id number] [address] [place] [id number] [place] Nucleated RBC/100 WBC (Bld) [Ratio] 0.0 /100 WBC Normal [facility] Comment on above: Order Comment: Speci men Type: BLOOD SPECIMEN Ordering Facility: [facility] Address: [address] [place] [address] Performed By: #### 5 8410-2 #### [facility] CLIA [id number] [address] [place] [address] [place] Platelet mean volume (Bld) [Entitic vol] 10.4 fL Normal 9.0-12.7 [facility] Comment on above: Order Comment: Speci men Type: BLOOD SPECIMEN Ordering Facility: [facility] Address: [address] [place] [address] Performed By: #### 5 8410-2 #### [facility] CLIA [id number] [address] [place] [address] [place] Platelets (Bld) [#/Vol] 201 10*3/uL Normal 150-400 [facility] Comment on above: Order Comment: Speci men Type: BLOOD SPECIMEN Ordering Facility: [facility] Address: [address] [place] [address] Performed By: #### 5 8410-2 #### [facility] CLIA [id number] [address] [place] [address] [place] RBC (Bld) [#/Vol] 4.50 10*6/uL Normal 3.90-5.[address] [facility] Comment on above: Order Comment: Speci men Type: BLOOD SPECIMEN Ordering Facility: [facility] Address: [address] [place] [address] Performed By: #### 5 8410-2 #### [facility] CLIA [id number] [address] [place] [address] [place] WBC (Bld) [#/Vol] 7.40 10*3/uL Normal 3.70-11.[address] [facility] Comment on above: Order Comment: Speci men Type: BLOOD SPECIMEN Ordering Facility: [facility] Address: [address] [place] [address] Performed By: #### 5 8410-2 #### [facility] CLIA [id number] [address] [place] [address] [place] [id number] [place] Samia 08-24-2023 CNPN Telephone (CARCMN) HARJIT ASENCIO I ([id number]) 1950 F Date Time Provider Department 08/24/23 [...] heart failure (HCC) [I50.9] Order(s):[facility] ([place], [place]) [[id number]] Order #: [id number]: 1 Prescriptions as of 08/24/2023 - apixaban [...] Encounter Status:Closed by JUNITO MENDES [facility] HARJIT ASENCIO I ([id number]) 1950 F Date Time Provider Department 08/24/23 MARGARET HAWKINS During your visit today, we recorded the following information about you: Margaret Hawkins APRN.[facility] 08/24/2023 6:29 AM Signed [facility] Inbound Phone Encounter DATE of SERVICE: 08/24/2023 TIME of SERVICE: 6:20 AM Status: Needs follow-up Service/Provider: MARIZA/Dr. Sorto Reason for call: Ms. Asencio is [...] attempt to reach their offices. Margaret Hawkins APRN.[employer] Date of Resolution: 08/24/2023 Time of Resolution [...] Status:Closed by MARGARET HAWKINS on 08/24/23 Normal [facility] Comprehensive metabolic 2000 panelon 08-24-2023 Albumin [Mass/Vol] 3.8 g/dL Low 3.9-4.9 [facility] Comment on above: Order Comment: Speci men Type: BLOOD SPECIMEN Ordering Facility: [facility] Address: [address] [place] [id number] Performed By: #### 2 4323-8 #### [facility] CLIA [id number] [address] [facility] [place] [id number] [place] ALP [Catalytic activity/Vol] 61 U/L Normal 34-123 [facility] Comment on above: Order Comment: Speci men Type: BLOOD SPECIMEN Ordering Facility: [facility] Address: [address] [place] [address] Performed By: #### 2 4323-8 #### [facility] CLIA [id number] [address] [place] [address] [place] ALT [Catalytic activity/Vol] 34 U/L Normal 7-38 [facility] Comment on above: Order Comment: Speci men Type: BLOOD SPECIMEN Ordering Facility: [facility] Address: [address] [place] [address] Performed By: #### 2 4323-8 #### [facility] CLIA [id number] [address] [place] [address] [place] Anion gap [Moles/Vol] 8 mmol/L Low 9-18 [facility] Comment on above: Order Comment: Speci men Type: BLOOD SPECIMEN Ordering Facility: [facility] Address: [address] [place] [address] Performed By: #### 2 4323-8 #### [facility] CLIA [id number] [address] [place] [address] [place] AST [Catalytic activity/Vol] 27 U/L Normal 13-35 [facility] Comment on above: Order Comment: Speci men Type: BLOOD SPECIMEN Ordering Facility: [facility] Address: [address] [place] [address] Performed By: #### 2 4323-8 #### [facility] CLIA [id number] [address] [place] [address] [place] Bilirubin [Mass/Vol] 0.7 mg/dL Normal 0.2-1.3 [facility] Comment on above: Order Comment: Speci men Type: BLOOD SPECIMEN Ordering Facility: [facility] Address: [address] [place] [address] Performed By: #### 2 4323-8 #### [facility] CLIA [id number] [address] [place] [address] [place] Calcium [Mass/Vol] 9.2 mg/dL Normal 8.5-10.2 [facility] Comment on above: Order Comment: Speci men Type: BLOOD SPECIMEN Ordering Facility: [facility] Address: [address] [place] [address] Performed By: #### 2 4323-8 #### [facility] CLIA [id number] [address] [place] [address] [place] Chloride [Moles/Vol] 97 mmol/L Normal 97-105 [facility] Comment on above: Order Comment: Speci men Type: BLOOD SPECIMEN Ordering Facility: [facility] Address: [address] [place] [address] Performed By: #### 2 4323-8 #### [facility] CLIA [id number] [address] [place] [address] [place] CO2 [Moles/Vol] 32 mmol/L High 22-30 [facility] Comment on above: Order Comment: Speci men Type: BLOOD SPECIMEN Ordering Facility: [facility] Address: [address] [place] [address] Performed By: #### 2 4323-8 #### [facility] CLIA [id number] [address] [place] [address] [place] Creatinine [Mass/Vol] 1.11 mg/dL High 0.58-0.96 [facility] Comment on above: Order Comment: Speci men Type: BLOOD SPECIMEN Ordering Facility: [facility] Address: [address] [place] [address] Performed By: #### 2 4323-8 #### [facility] CLIA [id number] [address] [place] [address] [place] Creatinine and Glomerular filtration rate.predicted panel (S/P/Bld) 52 mL/min/1.73m??? Low >=60 [facility] Comment on above: Order Comment: Nichole becerra Type: BLOOD SPECIMEN Ordering Facility: [facility] Address: [address] [place] [address] Result Comment: Shelley mated Glomerular Filtration Rate [...] GFR. Performed By: #### 2 4323-8 #### [facility] CLIA [id number] [address] [place] [address] [place] Glucose [Mass/Vol] 123 mg/dL High 74-99 [facility] Comment on above: Order Comment: Nichole becerra Type: BLOOD SPECIMEN Ordering Facility: [facility] Address: [address] [place] [address] Result Comment: The [place] Diabetes Association (ADA) provides guidance for cutoff [...] Standards of Medical Care in Diabetes 2016, [place] Diabetes Association. Diabetes Care. 2016.39(Suppl 1). Performed By: #### 2 4323-8 #### [facility] CLIA [id number] [address] [place] [address] [place] Potassium [Moles/Vol] 3.7 mmol/L Normal 3.7-5.1 [facility] Comment on above: Order Comment: Nichole becerra Type: BLOOD SPECIMEN Ordering Facility: [facility] Address: [address] [place] [address] Performed By: #### 2 4323-8 #### [facility] CLIA [id number] [address] [place] [address] [place] Protein [Mass/Vol] 6.1 g/dL Low 6.3-8.0 [facility] Comment on above: Order Comment: Speci men Type: BLOOD SPECIMEN Ordering Facility: [facility] Address: [address] [place] [address] Performed By: #### 2 4323-8 #### [facility] CLIA [id number] [address] [place] [address] [place] Sodium [Moles/Vol] 137 mmol/L Normal 136-144 [facility] Comment on above: Order Comment: Césari men Type: BLOOD SPECIMEN Ordering Facility: [facility] Address: [address] [place] [address] Performed By: #### 2 4323-8 #### [facility] CLIA [id number] [address] [place] [address] [place] Urea nitrogen [Mass/Vol] 21 mg/dL Normal 7-21 [facility] Comment on above: Order Comment: Speci men Type: BLOOD SPECIMEN Ordering Facility: [facility] Address: [address] [place] [address] Performed By: #### 2 4323-8 #### [facility] CLIA [id number] [facility] [place] [address] [place] DIGOXIN/LANOXINon 08-24-2023 Digoxin [Mass/Vol] 1.1 ng/mL Normal 0.6-1.2 [facility] Comment on above: Order Comment: Speci men Type: BLOOD SPECIMEN Ordering Facility: [facility] Address: [address] [place] [address] Result Comment: Prov ided therapeutic concentrations are based on the 2008 ESC Guidelines for the Diagnosis and Treatment of Acute and Chronic Heart Failure. Reference ranges and high/low indicator flags are provided as general guidelines only. The treating physician must determine appropriate target levels/dosing based on the specific clinical situation. Performed By: #### 1 9123-9, 02622-0 #### [facility] CLIA [id number] [address] [place] [address] [place] HISTORY PHYSICALon HISTORY PHYSICAL HNO ID: [id number] Author: AMINA PETERSEN MD Service: Clinical Cardiology Author Type: Physician Type: H&P Filed: 08/26/2023 08:14 Note Text: [facility] CARDIOVASCULAR MEDICINE HISTORY AND PHYSICAL (Template ID [id number]) Harjit Asencio [id number] PRIMARY SERVICE: Cardiovascular Medicine: Clinical Cardiology DATE [...] with persistent Afib. She initially presented to [facility] Farshad Ng with symptoms of urinary outlet [...] dayDisp: 1 TubeRfl: 11 tamsulosin 0.4 mg Xd67Cidi 1 capsule by mouth daily at bedtime.Disp: 30 capsuleRfl: 3 (Patient n (more content not included)... Normal [facility] URINALYSIS, DIPSTICK ONLYon 08-24-2023 Bilirubin Ql (U) Negative Normal Negative [facility] Comment on above: Order Comment: Speci men Type: URINE SPECIMENOrdering Facility: [facility] Address: [address] [place] [address] Performed By: #### U A ####[facility] [id number] [place] [address] [place] Clarity (Unsp spec) Cloudy Abnormal Clear [facility] Comment on above: Order Comment: Speci men Type: URINE SPECIMENOrdering Facility: [facility] Address: [address] [place] [address] Performed By: #### U A ####[facility] [id number] [place] [address] [place] Color (U) Yellow Normal Yellow [facility] Comment on above: Order Comment: Speci men Type: URINE SPECIMENOrdering Facility: [facility] Address: [address] [place] [address] Performed By: #### U A ####[facility] [id number] [address] Glucose Test strip (U) [Mass/Vol] Negative Normal Negative [facility] Comment on above: Order Comment: Speci men Type: URINE SPECIMENOrdering Facility: [facility] Address: [address] [place] [address] Performed By: #### U A ####[facility] [id number] [place] [address] [place] Hemoglobin Ql (U) Trace Abnormal Negative [facility] Comment on above: Order Comment: Speci men Type: URINE SPECIMENOrdering Facility: [facility] Address: [address] [place] [address] Performed By: #### U A ####[facility] [id number] [place] [address] [place] Ketones Ql (U) Trace Abnormal Negative [facility] Comment on above: Order Comment: Speci men Type: URINE SPECIMENOrdering Facility: [facility] Address: [address] [place] [address] Performed By: #### U A ####[facility] [id number] [address] [place] [facility] Leukocyte esterase Test strip Ql (U) 1+ Abnormal Negative [facility] Comment on above: Order Comment: Speci men Type: URINE SPECIMENOrdering Facility: [facility] Address: [address] [place] [address] Performed By: #### U A ####[facility] [id number] [place] [address] [place] Nitrite Ql (U) Negative Normal Negative [facility] Comment on above: Order Comment: Speci men Type: URINE SPECIMENOrdering Facility: [facility] Address: [address] [place] [address] Performed By: #### U A ####[facility] LABCLIA [id number] [place] [address] [place] pH (U) 5.5 [pH] Normal <8.5 [facility] Comment on above: Order Comment: Speci men Type: URINE SPECIMENOrdering Facility: [facility] Address: [address] [place] [address] Performed By: #### U A ####[facility] LABIA [id number] [place] [address] [place] Protein (U) [Mass/Vol] 1+ Abnormal Negative Cl [facility] Comment on above: Order Comment: Speci men Type: URINE SPECIMENOrdering Facility: [facility] Address: [address] [place] [address] Performed By: #### U A ####[facility] LABIA [id number] [place] [address] [place] Specific gravity (U) [Rel density] 1.021 Normal 1.005-1.030 [facility] Comment on above: Order Comment: Speci men Type: URINE SPECIMENOrdering Facility: [facility] Address: [address] [place] [address] Performed By: #### U A ####[facility] LABIA [id number] [place] [address] [place] Urobilinogen Ql (U) 1.0 EU/dL Normal 0.2-1.0 EU/dL [facility] Comment on above: Order Comment: Speci men Type: URINE SPECIMENOrdering Facility: [facility] Address: [address] [place] [address] Performed By: #### U A ####[facility] LABIA [id number] [place] [address] [place] CBC panel Auto (Bld)on 08-23 Erythrocyte distribution width (RBC) [Ratio] 12.9 % Normal 11.5-15.0 [facility] Comment on above: Order Comment: Speci men Type: BLOOD SPECIMENOrdering Facility: [facility] Address: [address] [place] [address] Performed By: #### 5 8410-2 ####[facility] LABCLIA [id number] [place] [address] [place] Hematocrit (Bld) [Volume fraction] 43.4 % Normal 36.0-46.0 [facility] Comment on above: Order Comment: Speci men Type: BLOOD SPECIMENOrdering Facility: [facility] Address: [address] [place] [address] Performed By: #### 5 8410-2 ####[facility] LABCLIA [id number] [place] [address] [place] Hemoglobin (Bld) [Mass/Vol] 14.4 g/dL Normal 11.5-15.5 [facility] Comment on above: Order Comment: Speci men Type: BLOOD SPECIMENOrdering Facility: [facility] Address: [address] [place] [address] Performed By: #### 5 8410-2 ####[facility] LABCLIA [id number] [place] [address] [place] MCH (RBC) [Entitic mass] 30.3 pg Normal 26.0-34.0 [facility] Comment on above: Order Comment: Speci men Type: BLOOD SPECIMENOrdering Facility: [facility] Address: [address] [place] [address] Performed By: #### 5 8410-2 ####[facility] LABCLIA [id number] [place] [address] [place] MCHC (RBC) [Mass/Vol] 33.2 g/dL Normal 30.5-36.0 [facility] Comment on above: Order Comment: Speci men Type: BLOOD SPECIMENOrdering Facility: [facility] Address: [address] [place] [address] Performed By: #### 5 8410-2 ####[facility] LABCLIA [id number] [address] [place] [address] [place] MCV (RBC) [Entitic vol] 91.4 fL Normal 80.0-100.0 [facility] Comment on above: Order Comment: Speci men Type: BLOOD SPECIMENOrdering Facility: [facility] Address: [address] [place] [address] Performed By: #### 5 8410-2 ####[facility] LABCLIA [id number] [place] [address] [place] Nucleated RBC (Bld) [#/Vol] 10*3/uL Normal <0.01 [facility] Comment on above: Order Comment: Speci men Type: BLOOD SPECIMENOrdering Facility: [facility] Address: [address] [place] [address] Performed By: #### 5 8410-2 ####[facility] LABCLIA [id number] [place] [address] [place] Platelet mean volume (Bld) [Entitic vol] 10.5 fL Normal 9.0-12.7 [facility] Comment on above: Order Comment: Speci men Type: BLOOD SPECIMENOrdering Facility: [facility] Address: [address] [place] [address] Performed By: #### 5 8410-2 ####[facility] LABCLIA [id number] [place] [address] [place] Platelets (Bld) [#/Vol] 215 10*3/uL Normal 150-400 [facility] Comment on above: Order Comment: Speci men Type: BLOOD SPECIMENOrdering Facility: [facility] Address: [address] [place] [address] Performed By: #### 5 8410-2 ####[facility] LABCLIA [id number] [place] [address] [place] RBC (Bld) [#/Vol] 4.75 10*6/uL Normal 3.90-5.[address] [facility] Comment on above: Order Comment: Speci men Type: BLOOD SPECIMENOrdering Facility: [facility] Address: [place] [address] Performed By: #### 5 8410-2 ####[facility] LABIA [id number] [place] [address] [place] WBC (Bld) [#/Vol] 6.24 10*3/uL Normal 3.70-11.[address] [facility] Comment on above: Order Comment: Speci men Type: BLOOD SPECIMENOrdering Facility: [facility] Address: [place] [address] Performed By: #### 5 8410-2 ####[facility] LABIA [id number] [place] [address] [place] CNOVon 08-23-2023 CNOV Office Visit (TOMN ) HARJIT ASENCIO I ([id number]) 1950 F Date Time Provider Department 08/23/23 3:20 PM MICHELINE SORTO [facility] During your visit today, we recorded the following information about you: Micheline Sorto MD 08/24/2023 8:19 AM Signed [facility] [place] DEPARTMENT OF CARDIAC SURGERY OUTPATIENT VISIT PCP: Peggy Nazario MD [address] [place] [address] Referring Physician: Micheline Sorto [id number] [address] Patient Type: New Visit to Determine Surgery: [...] valve is noncalcified. Normal caliber thoracic aorta. 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 Normal [facility] CNOV Office Visit (CARCMN ) HARJIT ASENCIO I ([id number]) 1950 F Date Time Provider Department 08/23/23 7:45 AM ALEA HARLEY During your visit today, we recorded the following information about you: Pulse Blood pressure Weight Height 47/minute 107/58 52.2 kg 1.651 m Alea Harley MD 08/23/2023 12:58 PM [facility] [place] [facility] Department of Cardiovascular Medicine SECTION OF CLINICAL CARDIOLOGY OUTPATIENT VISIT DATE August 23, 2023 OUTPATIENT VISIT TYPE NEW PRIMARY CARE PHYSICIAN: Peggy Nazario MD [address] [place] [address] REFERRING PHYSICIAN: Micheline Sorto [address] [facility] [address] CHIEF COMPLAINT: Mitral regurgitation. HISTORY OF PRESENT [...] emptying her bladder. When seen in the [facility] ER, she was found to be in [...] She is being referred by her private site foreman, Dr.D. Henriquez for consideration of MVr. As [...] is a 73 year old female from [place], [place] here today for cardiovascular evaluation related [...] disease Father (more content not included)... Normal [facility] CREATININE BLDon 08-23-2023 Creatinine [Mass/Vol] 0.97 mg/dL High 0.58-0.96 [facility] Comment on above: Order Comment: Speci mariam Type: BLOOD SPECIMEN [facility] Address: [address] [place] [address] Performed By: #### 1 9123-9, 06440-8 #### [facility] CLIA [id number] [address] [place] [address] [place] Creatinine and Glomerular filtration rate.predicted panel (S/P/Bld) 61 mL/min/1.73m??? Normal >=60 [facility] Comment on above: Order Comment: Speci mariam Type: BLOOD SPECIMEN [facility] Address: [address] [place] [address] Result Comment: Shelley mated Glomerular Filtration Rate [...] actual GFR. Performed By: #### 1 9123-9, 90380-6 #### [facility] CLIA [id number] [address] [place] [address] [place] CTA CHEST (GATED) [...] AORTIC DIMENSIONS: AORTIC ROOT: 3.5 cm measured [id number]-wg-etnxq Area cm2 mid ASCENDING THORACIC AORTA: 2.9 cm Area cm2 mid DESCENDING THORACIC AORTA: 2.2 cm limited upper ABDOMEN: unremarkable BONES: Unremarkable Charge Operator (topogram) images: No additional findings. IMPRESSION: Dilated left ventricle, biatrial enlargement. Mitral valve is noncalcified. Normal caliber thoracic aorta. 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 Transcribe Date/Time: Aug 23 2023 11:20A Dictated by : SARAH CARNEY MD This examination was interpreted and the report reviewed and electronically signed by: SARAH CARNEY MD on Aug 23 2023 12:14PM EST [id number] Normal [facility] metabolic 2000 panelon 08-23-2023 Albumin [Mass/Vol] 4.4 g/dL Normal 3.9-4.9 [facility] Comment on above: Order Comment: Speci men Type: BLOOD SPECIMEN [facility] Address: [address] [place] [address] Performed By: #### 1 9123-9, 02668-9 #### [facility] CLIA [id number] [address] [place] [address] [place] ALP [Catalytic activity/Vol] 66 U/L Normal 34-123 [facility] Comment on above: Order Comment: Speci men Type: BLOOD SPECIMEN [facility] Address: [address] [place] [address] Performed By: #### 1 9123-9, 42730-8 #### [facility] CLIA [id number] [address] [place] [address] [place] ALT [Catalytic activity/Vol] 40 U/L High 7-38 [facility] Comment on above: Order Comment: Speci men Type: BLOOD SPECIMEN [facility] Address: [address] [place] [address] Performed By: #### 1 9123-9, 23698-9 #### [facility] CLIA [id number] [address] [place] [address] [place] Anion gap [Moles/Vol] 9 mmol/L Normal 9-18 [facility] Comment on above: Order Comment: Speci men Type: BLOOD SPECIMEN [facility] Address: [address] [place] [address] Performed By: #### 1 9123-9, 48710-8 #### [facility] CLIA [id number] [address] [place] [address] [place] AST [Catalytic activity/Vol] 31 U/L Normal 13-35 [facility] Comment on above: Order Comment: Speci men Type: BLOOD SPECIMEN [facility] Address: [address] [place] [address] Performed By: #### 1 23-9, 16422-6 #### [facility] CLIA [id number] [address] [place] [address] [place] Bilirubin [Mass/Vol] 0.8 mg/dL Normal 0.2-1.3 [facility] Comment on above: Order Comment: Speci men Type: BLOOD SPECIMEN [facility] Address: [address] [place] [address] Performed By: #### 1 9123-9, #### [facility] CLIA [id number] [address] [place] [address] [place] Calcium [Mass/Vol] 9.8 mg/dL Normal 8.5-10.2 [facility] Comment on above: Order Comment: Speci men Type: BLOOD SPECIMEN [facility] Address: [address] [place] [address] Performed By: #### 1 23-9, #### [facility] CLIA [id number] [address] [place] [address] [place] Chloride [Moles/Vol] 98 mmol/L Normal 97-105 [facility] Comment on above: Order Comment: Speci men Type: BLOOD SPECIMEN [facility] Address: [address] [place] [address] Performed By: #### 1 239, #### [facility] CLIA [id number] [address] [place] [address] [place] CO2 [Moles/Vol] 32 mmol/L High 22-30 [facility] Comment on above: Order Comment: Speci men Type: BLOOD SPECIMEN [facility] Address: [address] [place] [address] Performed By: #### 1 9123-9, 10231-7 #### [facility] CLIA [id number] [address] [place] [address] [place] Creatinine [Mass/Vol] 0.98 mg/dL High 0.58-0.96 [facility] Comment on above: Order Comment: Nichole becerra Type: BLOOD SPECIMEN [facility] Address: [address] [place] [address] Performed By: #### 1 9123-9, 21108-3 #### [facility] CLIA [id number] [address] [place] [address] [place] Creatinine and Glomerular filtration rate.predicted panel (S/P/Bld) 60 mL/min/1.73m??? Normal >=60 [facility] Comment on above: Order Comment: Nichole becerra Type: BLOOD SPECIMEN [facility] Address: [address] [place] [address] Result Comment: Shelley mated Glomerular Filtration Rate [...] actual GFR. Performed By: #### 1 9123-9, 55798-8 #### [facility] CLIA [id number] [address] [place] [address] [place] Glucose [Mass/Vol] 127 mg/dL High 74-99 [facility] Comment on above: Order Comment: Nichole becerra Type: BLOOD SPECIMEN [facility] Address: [address] [place] [address] Result Comment: The [place] Diabetes Association (ADA) provides guidance for cutoff [...] Standards of Medical Care in Diabetes 2016, [place] Diabetes Association. Diabetes Care. 2016.39(Suppl 1). Performed By: #### 1 9123-9, #### [facility] CLIA [id number] [address] [place] [address] [place] Potassium [Moles/Vol] 4.1 mmol/L Normal 3.7-5.1 [facility] Comment on above: Order Comment: Speci men Type: BLOOD SPECIMEN [facility] Address: [address] [place] [address] Performed By: #### 1 9123-9, #### [facility] CLIA [id number] [address] [place] [address] [place] Protein [Mass/Vol] 6.8 g/dL Normal 6.3-8.0 [facility] Comment on above: Order Comment: Speci men Type: BLOOD SPECIMEN [facility] Address: [address] [place] [address] Performed By: #### 1 239, #### [facility] CLIA [id number] [address] [place] [address] [place] Sodium [Moles/Vol] 139 mmol/L Normal 136-144 [facility] Comment on above: Order Comment: Speci men Type: BLOOD SPECIMEN [facility] Address: [address] [place] [address] Performed By: #### 1 23-9, #### [facility] CLIA [id number] [address] [place] [id number] [place] Urea nitrogen [Mass/Vol] 17 mg/dL Normal 7-21 [facility] Comment on above: Order Comment: Speci men Type: BLOOD SPECIMEN [facility] Address: [address] [place] [address] Performed By: #### 1 9123-9, 83166-9 #### [facility] CLIA [id number] [address] [facility] [place] [address] [place] [id number] 08-23-2023 ECG01 Ventricular Rate : 8 5 BPM Atrial Rate : 250 BPM QRS Duration : 82 ms Q-T Interval : 368 ms QTC Calculation(Bazett) : 437 ms Calculated R [place] : 86 degrees Calculated T [place] : -51 degrees ATRIAL FIBRILLATION NONSPECIFIC ST AND T WAVE ABNORMALITY , PROBABLY DIGITALIS EFFECT ABNORMAL ECG Confirmed by JOSSE BURKS MD ([id number]) on 09/03/2023 4:14:55 PM NAME : HARJIT ASENCIO PID : [id number] : 1950 Gender : Female Race : ORD : Procedure Date : Aug 23 2023 09:29:39 Edit Date : Sep 03 2023 16:14:57 Diagnosis: ATRIAL FIBRILLATION NONSPECIFIC ST AND T WAVE ABNORMALITY , PROBABLY DIGITALIS EFFECT ABNORMAL ECG Confirmed by JOSSE BURKS MD ([id number]) on 09/03/2023 4:14:55 PM Test Reason : Location : 7 : [facility] Overread By : JOSSE BURKS MD Edited By : JOSSE BURKS MD Referred By : , Acquired by : [id number], Normal [facility] ECHOon 08-23-2023 Echocardiography Echocardiography Report: Transthoracic Echo [facility] J35 Date of service: 08/23/2023 2:15:32 PM BRAND Ordering physician: MICHELINE SORTO Indication: Valvular heart disease Technologist: Dede Watts [facility] Interpreting physician: To Brewer MD PATIENT: Name: [...] * Final (Updated) * * * CC [employer] [facility] Image : [id number] micsSISUID Normal [facility] NT-proBNP SerPl-ncon 08-23 Natriuretic peptide.B prohormone N-Terminal [Mass/Vol] 3265 pg/mL High <450 [facility] Comment on above: Order Comment: Speci men Type: BLOOD SPECIMEN [facility] Address: [address] [place] [address] Performed By: #### 1 9123-9, 49047-5 #### [facility] CLIA [id number] [address] [facility] [place] [address] [place] RIGHT HEART CATH REPORTon RIGHT HEART CATH REPORT Name: MRS. HARJIT ASENCIO Age: 73 years : Procedure Date: 08/23/2023 Procedure Start Time: 08/23/2023 12:09:58 PM Procedure Stop Time: 08/23/2023 12:43:39 PM Physcian Name Case Duties Prieto Villalba D.O. Diagnostic Attending Physician Yasir Coronado M.D. Audit Intern INDICATIONS FOR PROCEDURE: Heart failure PROCEDURE: PROCEDURAL [...] Imaging was obtained in AP 0 and GERMAN 45 degrees. After examining qualitatively (QCA) and calculating vessel diameter, the optimal sensor placement was determined. Roadmap images were placed for reference. A 0.018 inch steel core ([facility] [employer]) wire was inserted and place distal to the target sensor location. The balloon wedge pressure catheter was removed. The CardioMEMS delivery catheter was removed from the sterile packaging and flushed in its original housing. The catheter was pre soaked and agitated according to the lead clinical research coordinator's instructions to activate the hydrophilic coating. The [...] ECG, p (more content not included)... Normal [facility] CAROTID ARTERIES [facility] 08-23-2023 CAROTID ARTERIES [facility] Non-Invasive Vascular Laboratory [facility] J35 Carotid Duplex Bilateral/Complete Date of [...] physician: Eleonora Moffett MD, RPVI Final CC [employer] [facility] Image : [id number] sSISUID See Link below for Image Normal [facility] HARJIT ASENCIO I ([id number]) 1950 F Date Time Provider Department 08/22/23 [...] Date Reviewed: 10/24/2017 Reviewed by: Eb Goss (Payroll Accounting Manager), CALLIE - Fully Assessed Reason for Visit: Patient [...] by PATRICA GRIFFITHS RN on 08/22/23 Normal [facility] Samia 08-16-2023 CNPN Telephone (bioeng) HARJIT ASENCIO I ([id number]) 1950 F Date Time Provider Department 08/16/23 PRIETO ENCINAS During your visit today, we recorded the following information about you: Maryan Bhardwaj 08/16/2023 12:56 PM Signed Study TItle: Risk Assessment of Stroke Using Non-Invasive Ultrasonic Backscatter from Carotid Plaque (RUNUP) IRB#: [id number] PI: Ruba Villanueva, PhD Phone#: [phone] COORDINATOR/Research Nurse/Correctional Corporal: Prieto Encinas, or Maryan Bhardwaj or [phone] Pager: [phone] Recruitment Telephone Contact to introduce the study [...] questions feel free to contact me at [phone]. REMINDER Confirm the scheduled date and time [...] Date Reviewed: 10/24/2017 Reviewed by: Eb Goss (Payroll Accounting Manager), CALLIE - Fully Assessed Reason for Visit: [...] Status:Closed by MARYAN BHARDWAJ on 08/16/23 Normal [facility] Outside Cardiovascularon Outside Cardiovascular [id number]# 1.00TIFF Normal [facility] Progress Note-Physicianon Progress Note-Physician [id number]#1 .00TIFF Normal [facility] Progress Note-Physician Normal [facility] Comment on above: Result Comment: Elec tronically Signed By: MARTINEZ MCMAHON, Taylor Ribeiro.br\Date and Time Signed: 07/05/23 06:48 EST Echocardiogram-Transesophage anamaria 07-28-2023 Echocardiogram-Transes ophageal [id number]# 1.00TIFF Normal [facility] CNPJayde 07-24-2023 [facility] Telephone ([facility]) HARJIT ASENCIO I ([id number]) 1950 F Date Time Provider Department 07/24/23 MICHELINE SORTO [facility] During your visit today, we recorded [...] Date Reviewed: 10/24/2017 Reviewed by: Eb Goss (Payroll Accounting Manager), CALLIE - Fully Assessed Reason for Visit: [...] Encounter Status:Closed by CESAR NUNN on [facility]/24/23 [facility] HARJIT ASENCIO I ([id number]) 1950 F Date Time Provider Department 07/24/23 MICHELINE SORTO [facility] During your visit today, we recorded [...] Sorto for his review/plan of care. Harjit Asencio [id number] 73 year old Diagnosis: Sev MR, Sev [...] and eval with Cardiology and Dr. Sorto. Floor Installation Mechanic will contact patient with date and let [...] SCHEDULE FED X Referring Provider: TAYLOR HENRIQUEZ [[id number]] Allergies As of Date: 07/24/2023 Noted Allergy Reaction ASPIRIN 05/14/2010 14 - Other: See Comments Comments: Patient states causes Bruising. DEMORAL (MEPERIDINE) 05/14/2010 14 - Other: See Comments Comments: Patient does not know if she is allergic but know she is not suppose to take it. LATEX 09/26/2012 2 - Rash 4 - Hives Date Reviewed: 10/24/2017 Reviewed by: Eb Goss (Payroll Accounting Manager), CALLIE - Fully Assessed Reason for Visit: Referral Information [[id number]] Consult [173] Primary Visit Diagnosis:Disorder of artery or arteriole (HCC) [I77.9] Other Visit Diagnoses:Non-rheumat ic mitral regurgitation [I34.0] Nonrheumatic tricuspid valve regurgitation [I36.1] Other specified symptoms and signs involving the circulatory and respiratory systems [R09.89] Mitral valve disorder [I05.9] Tricuspid valve disorders, non-rheumatic [I36.9] Order(s):CONSULT TO CARDIOLOGY [9004] Order #: [id number]: 1 FUTURE CARDIOTHORACIC PREOP EVALUATION [] Order #: [id number]: 1 FUTURE ECHO [337689] Order #: [id number]: 1 FUTURE CTA CHEST (GATED) W IVCON [0021755] Order #: [id number] FUTURE CREATININE BLD [SQCRET] Order #: [id number] FUTURE US CAROTID ARTERIES [facility] [5617115] Order #: [id number] FUTURE CARDIAC DRAFTER CHIEF DESIGN ORDER [3422671] Order #: [id number]: 1 Prescriptions as of 07/28/2023 - apixaban [...] Status:Closed by KARINA WATTS on 07/28/23 [facility] Discharge Instructions [id number] [id number]# 1.00TIFF Normal [facility] Formson 07-24-2023 Forms [id number]#1 .00TIFF Normal [facility] Consent for Treatmenton Consent for Treatment [id number]#1 .00TIFF Normal [facility] Inpatient Clinical Summaryon 07-21-2023 Inpatient Clinical Summary Normal [facility] Inpatient Patient Summaryon 07-21-2023 Inpatient Patient Summary [facility] Patient Education - Texton 1 09-21-2022 Patient Education - Text Normal [facility] Progress Note-Physicianon Progress Note-Physician Normal [facility] Comment on above: Result Comment: Elec tronically Signed By: Taylor HENRIQUEZ MD\.br\Date and Time Signed: 07/21/23 07:09 EST Referrals Officeon Referrals Office [id number]# 1.00TIFF [facility] Consent for Procedure/Surger yon 07-20-2023 Consent for Procedure/Surgery [id number] #1.00TIFF [facility] Consent for Treatmenton Consent for Treatment [id number]#1 .00TIFF Normal [facility] Heart and Vascular Office/Cl inic Noteon 07-20-2023 Heart and Vascular Office/Clinic Note Normal [facility] Comment on above: Result Comment: Elec tronically Signed By: Taylor HENRIQUEZ MD\.br\Date and Time Signed: 07/20/23 10:38 EST Physician Orderon 07-20-2023 Physician Order [id number] #1.00TIFF Normal [facility] Ambulatory Visit Summaryon 1 09-19-2022 Ambulatory Visit Summary Normal [facility] Patient Educationon 07-19-20 Patient Education Normal [facility] Urology Office/Clinic Noteon 07-19-2023 Urology Office/Clinic Note Normal [facility] Comment on above: Result Comment: Elec tronically Signed By: Micheline BROOKS MD\.br\Date and Time Signed: 07/19/23 16:01 EST\.br\Electronically Co-Signed By: Can Bautista\.br\Date and Time Co-Signed: 07/19/23 15:59 EST Coding Queryon 07-17-2023 Coding Query Normal [facility] ED Note-Physicianon 07-15-20 ED Note-Physician Normal [facility] Comment on above: Result Comment: Elec tronically Signed By: Noe Black PA-C\.br\Date and Time Signed: 07/07/23 15:56 EST\.br\Electronically Co-Signed By: Jeff Cross DO\.br\Date and Time Co-Signed: 07/15/23 06:59 EST Cardiovascular Reporton 06-16 Cardiovascular Report [id number]# 2.00TIFF Normal [facility] Nursing Assessmenton 023 Nursing Assessment [id number]# 1.00TIFF Normal [facility] Discharge Instructionson Discharge Instructions [id number]# 1.00TIFF Normal [facility] Auto Diffon 07-07-2023 Basophils/100 WBC (Bld) 0.6 % Normal 0.0-2.0 [facility] Comment on above: Order Comment: Order Added by Discern Expert. Performed By: #### 1 1883546, 02630898, 7932314, 82503805, 8617330, 4981430, 59563301 ####[address] [address] Basophils/Leukocytes Auto (Bld) [Pure # fraction] 0.0 E9/L Normal 0.0-0.2 [facility] Comment on above: Order Comment: Order Added by Discern Expert. Performed By: #### 1 2798819, 32144914, 1858046, 01283039, 6418183, 7495666, 76855019 ####[address] [address] Eosinophils/100 WBC (Bld) 1.5 % Normal 0.0-8.0 [facility] Comment on above: Order Comment: Order Added by Discern Expert. Performed By: #### 1 7009615, 45855384, 5944740, 03779086, 6158631, 3182446, 25928754 ####[address] [address] Eosinophils/Leukocytes Auto (Bld) [Pure # fraction] 0.1 E9/L Normal 0.0-0.5 [facility] Comment on above: Order Comment: Order Added by Valeria Expert. Performed By: #### 1 5231302, 75228990, 0185486, 66582034, 9069007, 7426525, 77880267 ####[address] [address] Lymphocytes/100 WBC (Bld) 15.3 % Normal 14.0-50.0 [facility] Comment on above: Order Comment: Order Added by Discern Expert. Performed By: #### 1 4153802, 30197429, 8227508, 93634811, 1483980, 7545156, 71709586 ####[address] [address] Lymphocytes/Leukocytes Auto (Bld) [Pure # fraction] 1.2 E9/L Normal 1.0-4.0 [facility] Comment on above: Order Comment: Order Added by Valeria Expert. Performed By: #### 1 2388331, 87765846, 0537010, 31900826, 4706349, 3607424, 51425768 ####[facility] [address] [place] [address] Monocytes/100 WBC (Bld) 6.4 % Normal 4.0-14.0 [facility] Comment on above: Order Comment: Order Added by Discern Expert. Performed By: #### 1 3959082, 23619785, 7034340, 81124005, 8148456, 3041445, 00062367 ####[facility] [address] [place] [address] Monocytes/Leukocytes Auto (Bld) [Pure # fraction] 0.5 E9/L Normal 0.2-1.0 [facility] Comment on above: Order Comment: Order Added by Discern Expert. Performed By: #### 1 3234797, 45484270, 2933066, 68586971, 0550269, 2876411, 01478323 ####[address] [place] [address] Neutrophils/100 WBC (Bld) 76.2 % High 36.0-75.0 [facility] Comment on above: Order Comment: Order Added by Discern Expert. Performed By: #### 1 1280035, 33051110, 7894920, 79158618, 2432663, 2342897, 27835824 ####[facility] [address] [place] [address] Neutrophils/Leukocytes Auto (Bld) [Pure # fraction] 6.1 E9/L Normal 2.0-7.5 [facility] Comment on above: Order Comment: Order Added by Discern Expert. Performed By: #### 1 3063331, 79142438, 5387698, 03748679, 9340237, 1905196, 35733519 ####[facility] [address] [place] [address] BMPon 07-07-2023 Creatinine [Mass/Vol] 0.8 mg/dL Normal 0.5-1.3 [facility] Comment on above: Performed By: #### 1 1086298, 56017362, 9641237, 07990044, 3149638, 4338637, 68288668 ####[facility] [address] [place] [address] Urea nitrogen [Mass/Vol] 13 mg/dL Normal 5-21 [facility] Comment on above: Performed By: #### 1 2169180, 45786496, 4481593, 62418250, 2288579, 7225012, 39506949 ####[facility] [address] [place] [address] Urea nitrogen/Creatinine [Mass ratio] 16 No Units Normal 10-20 [facility] Comment on above: Performed By: #### 1 7213460, 01718090, 0388323, 59322889, 3700966, 9431141, 92265271 ####[facility] [address] [place] [address] Anion gap [Moles/Vol] 14 mmol/L Normal 6-16 [facility] Comment on above: Performed By: #### 1 8198436, 11316455, 3454652, 53724741, 2952161, 0329759, 47249648 ####[facility] [address] [place] [address] Calcium [Mass/Vol] 8.7 mg/dL Low 8.9-11.1 [facility] Comment on above: Performed By: #### 1 7709457, 08145726, 1924107, 41376906, 1662825, 2833249, 59606636 ####[facility] [address] [place] [address] Chloride [Moles/Vol] 100 mmol/L Low 101-111 [facility] Comment on above: Performed By: #### 1 4932134, 39395509, 6841808, 49866157, 4323785, 0760051, 33255472 ####[facility] [address] [place] [address] CO2 [Moles/Vol] 26 mmol/L Normal 21-31 [facility] Comment on above: Performed By: #### 1 5101555, 66518069, 4850045, 07815032, 6293783, 2963387, 26001757 ####[facility] [address] [place] [address] Glucose [Mass/Vol] 137 mg/dL Normal 55-199 [facility] Comment on above: Result Comment: If t his glucose result represents a fasting glucose, interpretation should refer to the following reference range: 55-99 mg/dL Performed By: #### 1 6303126, 59890977, 2074857, 28814669, 1444299, 1622678, 81526407 ####[facility] [address] [place] [address] Potassium [Moles/Vol] 4.3 mmol/L Normal 3.5-5.3 [facility] Comment on above: Performed By: #### 1 3811184, 80245054, 8129240, 22793677, 8039186, 9399115, 67791862 ####[facility] [address] [place] [address] Sodium [Moles/Vol] 136 mmol/L Normal 135-145 [facility] Comment on above: Performed By: #### 1 2169709, 63802110, 2424267, 96827939, 3565169, 7727557, 19895830 ####[facility] [address] [place] [address] BNPon 07-07-2023 Natriuretic peptide B (Bld) [Mass/Vol] 756 pg/mL High 5-80 [facility] Comment on above: Performed By: #### 1 1150942, 15018088, 5623863, 74793564, 2532985, 0039961, 59173681 ####[facility] [address] [place] [address] CBC w/ Auto Diffon 3 Erythrocyte distribution width (RBC) [Ratio] 13.8 % Normal 10.9-14.2 [facility] Comment on above: Performed By: #### 1 2269040, 95963863, 4533697, 53879476, 9159986, 2978419, 33938998 ####[facility] [address] [place] [address] Hematocrit (Bld) [Volume fraction] 40.3 % Normal 34.0-46.0 [facility] Comment on above: Performed By: #### 1 4712519, 14113282, 7336742, 37295372, 1607515, 2757968, 45861357 ####[address] [place] [address] Hemoglobin (Bld) [Mass/Vol] 13.0 g/dL Normal 12.0-16.0 [facility] Comment on above: Performed By: #### 1 6382231, 28089801, 3628534, 28114989, 6517705, 1910819, 09975322 ####[place] [address] MCH (RBC) [Entitic mass] 29.2 pg Normal 27.0-34.0 [facility] Comment on above: Performed By: #### 1 2549608, 28119776, 6789314, 31140829, 4291948, 0826339, 09561635 ####[facility] [address] [place], [place] [address] MCHC (RBC) [Mass/Vol] 32.3 g/dL Normal 31.4-36.0 [facility] Comment on above: Performed By: #### 1 0176800, 23930194, 5504017, 67348319, 3267065, 5337314, 35925267 ####[address] [address] MCV (RBC) [Entitic vol] 90.2 fL Normal 80.0-100.0 [facility] Comment on above: Performed By: #### 1 8825494, 57141022, 8355519, 23459038, 9346972, 4143072, 67300665 ####[facility] [address] [place] [address] Platelet mean volume (Bld) [Entitic vol] 8.5 fL Normal 6.4-10.8 [facility] Comment on above: Performed By: #### 1 9054091, 08362796, 3490425, 66457705, 9563065, 3946220, 43529428 ####[facility] [address] [place] [address] Platelets (Bld) [#/Vol] 291.0 E9/L Normal 150.0-500.0 [facility] Comment on above: Performed By: #### 1 6162787, 34159533, 0256508, 97618126, 6543651, 3861648, 19510356 ####[facility] [address] [place] [address] RBC (Bld) [#/Vol] 4.5 E12/L Normal 4.3-5.9 [facility] Comment on above: Performed By: #### 1 9347834, 55635630, 0169076, 68721454, 5896413, 5086075, 46757860 ####[facility] [address] [place] [address] WBC corrected for nucl RBC Auto (Bld) [#/Vol] 8.0 E9/L Normal 4.0-11.0 [facility] Comment on above: Performed By: #### 1 4704409, 43563855, 5829641, 70098154, 6567657, 0508312, 01001758 ####[facility] [address] [place] [address] CHEMISTRYOrdered By: SYSTEM SYSTEM on 07-07-2023 Troponin I.cardiac [Mass/Vol] 42.10 pg/mL Invalid Interpretation Code 10.10 - 27.10 pg/mL [facility] Remisol Comment on above: Result Comment: Crit ical Result verified by previous result\ Critical Result I_hsTnI:42.1 Called to NOE WING at by DAMIEN CORREA and read back for confirmation at 07/07/2023 12:28:40 Interpretive Data: T he 95% CI (Confidence Interval) PPV (Positive Predictive Value) for myocardial infarction in females is 38 pg/mL, in males 51 pg/mL. The results should be used in conjunction with clinical conditions of myocardial infarction. ([employer] High Sensitivity Troponin I Instructions For Use, [employer], March 2018) Anion gap [Moles/Vol] 14 mmol/L [...] 77 mL/min/1.73 m2 Normal >=59mL/min/1 .73 m2 [facility] Chem S Comment on above: Interpretive Data: C hronic kidney disease could be indicated at eGFR's of less than 60 mL/min/1.73m2. Kidney failure is indicated at less than 15 mL/min/1.73m2. Glucose [Mass/Vol] 137 mg/dL Normal 55 - 199 mg/dL [facility] Remisol Comment on above: Interpretive Data: I f this glucose result represents a fasting glucose, interpretation should refer to the following reference range: 55-99 mg/dL Potassium [Moles/Vol] 4.3 mmol/L Normal 3.5 - 5.3 mmol/L [facility] Remisol Sodium [Moles/Vol] 136 mmol/L Normal 135 - 145 mmol/L [facility] Remisol Troponin I.cardiac [Mass/Vol] 39.60 pg/mL Invalid [...] 13 mg/dL Normal 5 - 21 mg/dL [facility] Remisol Urea nitrogen/Creatinine [Mass ratio] 16 mg/mg Normal 10 - 20 [facility] Remisol CHEMISTRYOrdered By: Margaret Coliler on 07-07-2023 Natriuretic peptide B (Bld) [Mass/Vol] 756 pg/mL High 5 - 80 pg/mL [facility] HemeManSS COAGULATIONOrdered By: Fay Tran on 07-07-2023 aPTT Coag (PPP) [Time] 28.4 s Normal 25.1 - 36.5 second(s) [facility] Auto Coag Comment on above: Interpretive Data: [...] the same coagulation reagent and instrumentation as [facility]. Currently there are no coagulation studies available worldwide for children to 14 days, and no normal ranges. Heparin therapeutic range (represented by Anti-Factor Xa activity of 0.2 - 0.4 U/mL) corresponds to PTT of 56.6 - 109.0 sec. INR Coag (PPP) [Relative time] 1.0 {INR} Invalid Interpretation Code [facility] Auto Coag Comment on above: Interpretive Data: I NR results are specifically intended to assess patients stabilized on long-term Anticoagulation therapy suggested INR s Less Intensive Anticoagulation 2.0 3.0 Conventional Range 3.0 4.5 PT Coag (PPP) [Time] 11.3 s Normal 9.4 - 1 2.5 second(s) [facility] Auto Coag Comment on above: Interpretive Data: [...] the same coagulation reagent and instrumentation as [facility]. Currently there are no coagulation studies available worldwide for children to 14 days, and no normal ranges. Consent for Procedure/Surger yon 07-07-2023 Consent for Procedure/Surgery [id number]# 1.00TIFF Normal [facility] Consent for Treatmenton 06-15 Consent for Treatment [id number]#1 .00TIFF Normal [facility] Discharge Instructionson Discharge Instructions [id number]#1 .00TIFF Normal [facility] ED Clinical Summaryon 2022 ED Clinical Summary Normal [facility] ED Note-Nursingon 07-07-2023 ED Note-Nursing discussed in length medications pt needs to take yet today and 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 Normal [facility] ED Patient Education Noteon 07-07-2023 ED Patient Education Note Normal [facility] ED Patient Summaryon 023 ED Patient Summary Normal [facility] HEMATOLOGYOrdered By: SYSTEM SYSTEM on 07-07-2023 [...] 8.5 fL Normal 6.4 - 10.8 fL [facility] HemeAutoSS Platelets (Bld) [#/Vol] 291.0 E9/L Normal 150.0 - 500.0 E9/L [facility] HemeAutoSS RBC (Bld) [#/Vol] 4.5 E12/L Normal 4.3 - 5.9 E12/L [facility] HemeAutoSS WBC corrected for nucl RBC Auto (Bld) [#/Vol] 8.0 E9/L Normal 4.0 - 11.0 E9/L [facility] HemeAutoSS Insurance Correspondence Off iceon 07-07-2023 Insurance Correspondence Office [id number]#1 .00TIFF Normal [facility] Monitor Recordon 07-07-2023 Monitor Record [id number]# 1.00TIFF Normal [facility] Monitor Record [id number]# 1.00TIFF Normal [facility] Monitor Record [id number]# 1.00TIFF Normal [facility] PT & PTTon 07-07-2023 aPTT Coag (PPP) [Time] 28.4 second(s) Normal 25.1-36.5 [facility] Comment on above: Result Comment: Para [...] the same coagulation reagent and instrumentation as [facility]. Currently there are no coagulation studies available worldwide for children to 14 days, and no normal ranges. Heparin therapeutic range (represented by Anti-Factor Xa activity of 0.2 - 0.4 U/mL) corresponds to PTT of 56.6 - 109.0 sec. Performed By: #### 1 0234756, 37561389, 3547099, 71349120, 8478796, 4005694, 09593351 ####[address] [place] [address] INR Coag (PPP) [Relative time] 1.0 {INR} Invalid Interpretation Code [facility] Comment on above: Result Comment: INR results are specifically intended to assess patients stabilized on long-term Anticoagulation therapy suggested INR?s ?Less Intensive Anticoagulation? 2.0 ? 3.0Conventional Range 3.0 ? 4.5 Performed By: #### 1 8542795, 81836621, 8351054, 01574541, 9105731, 3432873, 69598016 ####[facility] [address] [place] [address] PT Coag (PPP) [Time] 11.3 second(s) Normal 9.4-12.5 [facility] Comment on above: Result Comment: 15 [...] the same coagulation reagent and instrumentation as [facility]. Currently there are no coagulation studies available worldwide for children to 14 days, and no normal ranges. Performed By: #### 1 7175631, 06885618, 5500814, 78447346, 2161351, 2100754, 01655399 ####[facility] [address] [place] [address] Troponin 0 Hr.on 07-07-2023 Troponin I.cardiac [Mass/Vol] 39.60 pg/mL Abnormal 10.10-27.10 [facility] Comment on above: Result Comment: Crit [...] in conjunction with clinical conditions of myocardial infarction.([employer] High Sensitivity Troponin I Instructions For Use, [employer], March 2018) Performed By: #### 1 6965556, 05686524, 7515884, 25578281, 8594126, 9687323, 15583303 ####[facility] [address] [place] [address] Troponin 3 Hr.on 07-07-2023 Troponin I.cardiac [Mass/Vol] 42.10 pg/mL Abnormal 10.10-27.10 [facility] Comment on above: Result Comment: Crit [...] in conjunction with clinical conditions of myocardial infarction.([employer] High Sensitivity Troponin I Instructions For Use, [employer], March 2018) Performed By: #### 1 [id number] ####[facility] [address] [place] [address] XR Chest Single Viewon 07-07 XR Chest Single View Normal [facility] eGFRon 07-07-2023 GFR/1.73 sq M.predicted among non-blacks MDRD (S/P/Bld) [Vol rate/Area] 77 mL/min/1.73 m2 Normal >=59 [facility] Comment on above: Order Comment: Order added by Discern Expert. Result Comment: Proofer Apprentice luis kidney disease could be indicated at eGFR's of less than 60 mL/min/1.73m2. Kidney failure is indicated at less than 15 mL/min/1.73m2. Performed By: #### 1 8632207, 90703203, 7984046, 28455278, 6505450, 0487819, 85711752 ####[facility] [address] [place] [address] BMPon 07-06-2023 Anion gap [Moles/Vol] 5 mmol/L Low 6-16 [facility] Comment on above: Performed By: #### 1 0545639, 5864850 ####[facility] [address] [place] [address] Calcium [Mass/Vol] 8.0 mg/dL Low 8.9-11.1 [facility] Comment on above: Performed By: #### 1 5625280, 7782403 ####[facility] [address] [place] [address] Chloride [Moles/Vol] 109 mmol/L Normal 101-111 [facility] Comment on above: Performed By: #### 1 4071796, 1107341 ####[facility] [address] [place] [address] CO2 [Moles/Vol] 28 mmol/L Normal 21-31 [facility] Comment on above: Performed By: #### 1 5085575, 1151039 ####[facility] [address] [place] [address] Creatinine [Mass/Vol] 0.7 mg/dL Normal 0.5-1.3 [facility] Comment on above: Performed By: #### 1 5387827, 9469564 ####[facility] [address] [place] [address] Glucose [Mass/Vol] 91 mg/dL Normal 55-199 [facility] Comment on above: Result Comment: If t his glucose result represents a fasting glucose, interpretation should refer to the following reference range: 55-99 mg/dL Performed By: #### 1 2513199, 4122692 ####[facility] [address] [place] [address] Potassium [Moles/Vol] 3.9 mmol/L Normal 3.5-5.3 [facility] Comment on above: Performed By: #### 1 6042734, 9799405 ####[facility] [address] [place] [address] Sodium [Moles/Vol] 138 mmol/L Normal 135-145 [facility] Comment on above: Performed By: #### 1 2401903, 7699914 ####[facility] [address] [place] [address] Urea nitrogen [Mass/Vol] 12 mg/dL Normal 5-21 [facility] Comment on above: Performed By: #### 1 6298592, 5054384 ####[facility] [address] [place] [address] Urea nitrogen/Creatinine [Mass ratio] 17 No Units Normal 10-20 [facility] Comment on above: Performed By: #### 1 2701256, 7044319 ####[facility] [address] [place] [address] CHEMISTRYOrdered By: SYSTEM SYSTEM on 07-06-2023 Anion gap [Moles/Vol] 5 mmol/L Low 6 - 16 mEq/L F [facility] Remisol Calcium [Mass/Vol] 8.0 mg/dL Low 8.9 - 11. 1 mg/dL [facility] Remisol Chloride [Moles/Vol] 109 mmol/L Normal 101 - 1 11 mmol/L [facility] Remisol CO2 [Moles/Vol] 28 mmol/L Normal 21 - 31 mmol/L [facility] Remisol Creatinine [Mass/Vol] 0.7 mg/dL Normal 0.5 - 1.3 mg/dL [facility] Remisol GFR/1.73 sq M.predicted among non-blacks MDRD (S/P/Bld) [Vol rate/Area] 90 mL/min/1.73 m2 Normal >=59mL/min/1 .73 m2 [facility] Chem S Comment on above: Interpretive Data: C hronic kidney disease could be indicated at eGFR's of less than 60 mL/min/1.73m2. Kidney failure is indicated at less than 15 mL/min/1.73m2. Glucose [Mass/Vol] 91 mg/dL Normal 55 - 199 mg/dL [facility] Remisol Comment on above: Interpretive Data: I f this glucose result represents a fasting glucose, interpretation should refer to the following reference range: 55-99 mg/dL Potassium [Moles/Vol] 3.9 mmol/L Normal 3.5 - 5.3 mmol/L [facility] Remisol Sodium [Moles/Vol] 138 mmol/L Normal 135 - 145 mmol/L [facility] Remisol Urea nitrogen [Mass/Vol] 12 mg/dL Normal 5 - 21 mg/dL [facility] Remisol Urea nitrogen/Creatinine [Mass ratio] 17 mg/mg Normal 10 - 20 [facility] Remisol Discharge Note-Nursingon Discharge Note-Nursing Normal [facility] Inpatient Clinical Summaryon 07-06-2023 Inpatient Clinical Summary Normal [facility] Inpatient Patient Summaryon 07-06-2023 Inpatient Patient Summary Normal [facility] Interdisciplinary Note - Tico e Manageron 07-06-2023 Interdisciplinary Note - Culture Media Laboratory Assistant [facility] Comment on above: Result Comment: Elec tronically Signed By: Felicia Resendiz RN\.br\Date and Time Signed: 07/06/23 12:06 EST Monitor Recordon 07-06-2023 Monitor Record [id number]# 1.00TIFF Normal [facility] Monitor Record [id number] 1 [id number]# 1.00TIFF Normal [facility] Monitor Record [id number] 1 [id number]# 1.00TIFF Normal [facility] Monitor Record [id number] 1 [id number]# 1.00TIFF [facility] Progress Note-Physicianon Progress Note-Physician [facility] Comment on above: Result Comment: Elec tronically Signed By: JAZMÍN MCMAHON, Nahid\.br\Date and Time Signed: 07/06/23 11:56 EST Progress Note-Physician [facility] Comment on above: Result Comment: Elec tronically Signed By: Taylor HENRIQUEZ MD\.br\Date and Time Signed: 07/06/23 09:22 EST eGFRon 07-06-2023 GFR/1.73 sq M.predicted among non-blacks MDRD (S/P/Bld) [Vol rate/Area] 90 mL/min/1.73 m2 Normal >=59 [facility] Comment on above: Order Comment: Order added by Discern Expert. Result Comment: Proofer Apprentice luis kidney disease could be indicated at eGFR's of less than 60 mL/min/1.73m2. Kidney failure is indicated at less than 15 mL/min/1.73m2. Performed By: #### 1 [id number], [id number] ####[facility] [address] [place] [address] BMPon 07-05-2023 Anion gap [Moles/Vol] 9 mmol/L Normal 6-16 [facility] Comment on above: Performed By: #### 1 5124928, 7214860 ####[facility] [address] [place] [address] Calcium [Mass/Vol] 8.2 mg/dL Low 8.9-11.1 [facility] Comment on above: Performed By: #### 1 3853359, 8920163 ####[facility] [address] [place] [address] Chloride [Moles/Vol] 105 mmol/L Normal 101-111 [facility] Comment on above: Performed By: #### 1 8311918, 1408535 ####[facility] [address] [place] [address] CO2 [Moles/Vol] 27 mmol/L Normal 21-31 [facility] Comment on above: Performed By: #### 1 6163484, 1042437 ####[facility] [address] [place] [address] Creatinine [Mass/Vol] 0.7 mg/dL Normal 0.5-1.3 [facility] Comment on above: Performed By: #### 1 0934280, 5189410 ####[facility] [address] [place] [address] Glucose [Mass/Vol] 115 mg/dL Normal 55-199 [facility] Comment on above: Result Comment: If t his glucose result represents a fasting glucose, interpretation should refer to the following reference range: 55-99 mg/dL Performed By: #### 1 9410030, 9541257 ####[facility] [address] [place] [address] Potassium [Moles/Vol] 4.3 mmol/L Normal 3.5-5.3 [facility] Comment on above: Performed By: #### 1 5822464, 1663470 ####[facility] [address] [place] [address] Sodium [Moles/Vol] 137 mmol/L Normal 135-145 [facility] Comment on above: Performed By: #### 1 8320512, 6046165 ####[facility] [address] [place] [address] Urea nitrogen [Mass/Vol] 13 mg/dL Normal 5-21 [facility] Comment on above: Performed By: #### 1 0782328, 5955072 ####[facility] [address] [place] [address] Urea nitrogen/Creatinine [Mass ratio] 19 No Units Normal 10-20 [facility] Comment on above: Performed By: #### 1 8292272, 4027209 ####[facility] [address] [place] [address] CHEMISTRYOrdered By: SYSTEM SYSTEM on 07-05-2023 Anion gap [Moles/Vol] 9 mmol/L Normal 6 - 16 mEq/L F [facility] Remisol Calcium [Mass/Vol] 8.2 mg/dL Low 8.9 - 11. 1 mg/dL [facility] Remisol Chloride [Moles/Vol] 105 mmol/L Normal 101 - 1 11 mmol/L [facility] Remisol CO2 [Moles/Vol] 27 mmol/L Normal 21 - 31 mmol/L [facility] Remisol Creatinine [Mass/Vol] 0.7 mg/dL Normal 0.5 - 1.3 mg/dL [facility] Remisol GFR/1.73 sq M.predicted among non-blacks MDRD (S/P/Bld) [Vol rate/Area] 90 mL/min/1.73 m2 Normal >=59mL/min/1 .73 m2 [facility] Chem S Comment on above: Interpretive Data: C hronic kidney disease could be indicated at eGFR's of less than 60 mL/min/1.73m2. Kidney failure is indicated at less than 15 mL/min/1.73m2. Glucose [Mass/Vol] 115 mg/dL Normal 55 - 199 mg/dL [facility] Comment on above: Interpretive Data: I f this glucose result represents a fasting glucose, interpretation should refer to the following reference range: 55-99 mg/dL Potassium [Moles/Vol] 4.3 mmol/L Normal 3.5 - 5.3 mmol/L [facility] Remisol Sodium [Moles/Vol] 137 mmol/L Normal 135 - 145 mmol/L [facility] Remisol Urea nitrogen [Mass/Vol] 13 mg/dL Normal 5 - 21 mg/dL [facility] Remisol Urea nitrogen/Creatinine [Mass ratio] 19 mg/mg Normal 10 - 20 [facility] CHEMISTRYOrdered By: Lab ROP User on 07-05-2023 Glucose [Mass/Vol] 79 mg/dL Normal 55 - 99 mg/dL [facility] POC Subsection Comment on above: Result Comment: Neli PIÑA POC Username NIKHIL PAULSON Invalid Interpretation Code [facility] POC Subsection Sodium [Moles/Vol] 270204590500 mmol/L Invalid Interpretation Code [facility] POC Subsection Sodium [Moles/Vol] 717128183 mmol/L Invalid Interpretation Code [facility] POC Subsection Capillary Glucose POCon 06-15 Glucose [Mass/Vol] 79 mg/dL Normal 55-99 [facility] Comment on above: Result Comment: Neli PIÑA Performed By: #### 2 [id number] ####[facility] [address] [place] [address] Cardiovascular Reporton 06-15 Cardiovascular Report [id number]# 1.00TIFF Normal [facility] Interdisciplinary Note - Tico e Manageron 07-05-2023 Interdisciplinary Note - Culture Media Laboratory Assistant Normal [facility] Comment on above: Result Comment: Elec tronically Signed By: Margaret Grimm\Date and Time Signed: 07/05/23 15:06 EST Monitor Recordon 07-05-2023 Monitor Record [id number]# 1.00TIFF Normal [facility] Monitor Record [id number] 1 [id number]# 1.00TIFF Normal [facility] Monitor Record [id number] 1 [id number]# 1.00TIFF Normal [facility] Monitor Record [id number] 1 [id number]# 1.00TIFF Normal [facility] Operative Reporton 3 Operative Report Normal [facility] Comment on above: Result Comment: Elec tronically Signed By: MARTINEZ MCMAHON, Taylor Patino\.br\Date and Time Signed: 07/05/23 11:46 EST Progress Note-Nurseon 2022 Progress Note-Nurse bundle tier and labeler made aware patient last dose of lovenox was given on 07/04/23 @ 2345. Normal [facility] Progress Note-Physicianon Progress Note-Physician [facility] Comment on above: Result Comment: Elec tronically Signed By: JAZMÍN MCMAHON, Nahid\.br\Date and Time Signed: 07/05/23 11:19 EST eGFRon 07-05-2023 GFR/1.73 sq M.predicted among non-blacks MDRD (S/P/Bld) [Vol rate/Area] 90 mL/min/1.73 m2 Normal >=59 [facility] Comment on above: Order Comment: Order added by Discern Expert. Result Comment: Proofer Apprentice luis kidney disease could be indicated at eGFR's of less than 60 mL/min/1.73m2. Kidney failure is indicated at less than 15 mL/min/1.73m2. Performed By: #### 1 3892078, 0411045 ####[facility] [address] [place] [address] Interdisciplinary Note - Tico e Manageron 07-04-2023 Interdisciplinary Note - Culture Media Laboratory Assistant [facility] Comment on above: Result Comment: Elec tronically Signed By: Margaret Grimm\.br\Date and Time Signed: 07/04/23 10:49 EST Monitor Recordon 07-04-2023 Monitor Record [id number]# 1.00TIFF Normal [facility] Monitor Record [id number] 1 [id number]# 1.00TIFF Normal [facility] Monitor Record [id number] 1 [id number]# 1.00TIFF Normal [facility] Monitor Record [id number] 1 [id number]# 1.00TIFF Normal [facility] Patient Education - Texton 1 09-03-2022 Patient Education - Text Normal [facility] Progress Note-Physicianon Progress Note-Physician Normal [facility] Comment on above: Result Comment: Elec tronically Signed By: JAZMÍN MCMAHON, Nahid\.br\Date and Time Signed: 07/04/23 10:53 EST Progress Note-Physician Normal [facility] Comment on above: Result Comment: Elec tronically Signed By: MARTINEZ MCMAHON, Taylor Patino\.br\Date and Time Signed: 07/04/23 08:04 EST Auto Diffon 07-03-2023 Basophils/100 WBC (Bld) 0.3 % Normal 0.0-2.0 [facility] Comment on above: Order Comment: Order Added by Discern Expert. Performed By: #### 2 922040, 97158854, 1516553, 2234743, 4517888, 1048064, 00398069 ####[facility] [address] [place] [address] Basophils/Leukocytes Auto (Bld) [Pure # fraction] 0.0 E9/L Normal 0.0-0.2 [facility] Comment on above: Order Comment: Order Added by Discern Expert. Performed By: #### 2 596020, 51404439, 5258397, 8428286, 7098504, 9364247, 35351934 ####[facility] [address] [place] [address] Eosinophils/100 WBC (Bld) 0.0 % Normal 0.0-8.0 [facility] Comment on above: Order Comment: Order Added by Discern Expert. Performed By: #### 2 396166, 09028197, 1084053, 8653850, 1488432, 9452746, 81060768 ####[facility] [address] [place] [address] Eosinophils/Leukocytes Auto (Bld) [Pure # fraction] 0.0 E9/L Normal 0.0-0.5 [facility] Comment on above: Order Comment: Order Added by Discern Expert. Performed By: #### 2 816768, 09148351, 9780092, 8156272, 9803661, 5786084, 34764479 ####[address] [place] [address] Lymphocytes/100 WBC (Bld) 15.3 % Normal 14.0-50.0 [facility] Comment on above: Order Comment: Order Added by Discern Expert. Performed By: #### 2 612904, 96999849, 5009478, 1589812, 5438265, 8786260, 86563492 ####[facility] [address] [place] [address] Lymphocytes/Leukocytes Auto (Bld) [Pure # fraction] 0.9 E9/L Low 1.0-4.0 [facility] Comment on above: Order Comment: Order Added by Discern Expert. Performed By: #### 2 461299, 79547231, 5551008, 6630181, 0453124, 9091288, 46017078 ####[address] [place] [address] Monocytes/100 WBC (Bld) 7.7 % Normal 4.0-14.0 [facility] Comment on above: Order Comment: Order Added by Valeria Expert. Performed By: #### 2 138400, 66262995, 9377791, 7817895, 5389623, 3761896, 11736840 ####[address] [place] [address] Monocytes/Leukocytes Auto (Bld) [Pure # fraction] 0.5 E9/L Normal 0.2-1.0 [facility] Comment on above: Order Comment: Order Added by Discern Expert. Performed By: #### 2 337807, 70039764, 0900258, 1528204, 9841918, 6291913, 96084128 ####[facility] [address] [place] [address] Neutrophils/100 WBC (Bld) 76.7 % High 36.0-75.0 [facility] Comment on above: Order Comment: Order Added by Discern Expert. Performed By: #### 2 710836, 00533159, 6423428, 6048730, 0664404, 7379511, 37084713 ####[facility] [address] [place] [address] Neutrophils/Leukocytes Auto (Bld) [Pure # fraction] 4.7 E9/L Normal 2.0-7.5 [facility] Comment on above: Order Comment: Order Added by Discern Expert. Performed By: #### 2 512416, 03218609, 2714868, 5549794, 3108593, 3379606, 55203372 ####[facility] [address] [place] [address] BMPon 07-03-2023 Creatinine [Mass/Vol] 1.0 mg/dL Normal 0.5-1.3 [facility] Comment on above: Performed By: #### 2 758868, 47095384, 6142810, 6390232, 0913833, 2272479, 04459416 ####[facility] [address] [place] [address] Urea nitrogen [Mass/Vol] 13 mg/dL Normal 5-21 [facility] Comment on above: Performed By: #### 2 966620, 18602897, 9377038, 5549228, 1620565, 4847214, 41671226 ####[facility] [address] [place] [address] Urea nitrogen/Creatinine [Mass ratio] 13 No Units Normal 10-20 [facility] Comment on above: Performed By: #### 2 680006, 88172097, 3424374, 4074976, 3219056, 1319247, 24812782 ####[facility] [address] [place] [address] Anion gap [Moles/Vol] 13 mmol/L Normal 6-16 [facility] Comment on above: Performed By: #### 2 941398, 00847636, 6481740, 9241016, 0673384, 4853257, 72862102 ####[facility] [address] [place] [address] Calcium [Mass/Vol] 9.1 mg/dL Normal 8.9-11.1 [facility] Comment on above: Performed By: #### 2 093744, 18815733, 3533239, 3970919, 1996628, 6563237, 42775615 ####[facility] [address] [place] [address] Chloride [Moles/Vol] 100 mmol/L Low 101-111 [facility] Comment on above: Performed By: #### 2 312286, 15465374, 6261053, 1643065, 3176481, 2969888, 01629489 ####[facility] [address] [place] [address] CO2 [Moles/Vol] 24 mmol/L Normal 21-31 [facility] Comment on above: Performed By: #### 2 971670, 20783381, 8485017, 8901106, 7836120, 4683296, 88182705 ####[facility] [address] [place] [address] Glucose [Mass/Vol] 129 mg/dL Normal 55-199 [facility] Comment on above: Result Comment: If t his glucose result represents a fasting glucose, interpretation should refer to the following reference range: 55-99 mg/dL Performed By: #### 2 228227, 45722863, 9675543, 9873267, 2779045, 4965004, 58937404 ####[facility] [address] [place] [address] Potassium [Moles/Vol] 3.8 mmol/L Normal 3.5-5.3 [facility] Comment on above: Performed By: #### 2 951556, 52397252, 8791012, 8222993, 0414325, 4893439, 47112255 ####[facility] [address] [place] [address] Sodium [Moles/Vol] 133 mmol/L Low 135-145 [facility] Comment on above: Performed By: #### 2 634657, 13303686, 4662008, 4459166, 1731502, 3297043, 52105881 ####[facility] [address] [place] [address] CBC w/ Auto Diffon Erythrocyte distribution width (RBC) [Ratio] 13.5 % Normal 10.9-14.2 [facility] Comment on above: Performed By: #### 2 894250, 31347295, 3624259, 5218207, 4389450, 4829853, 64283193 ####[facility] [address] [place] [address] Hematocrit (Bld) [Volume fraction] 38.5 % Normal 34.0-46.0 [facility] Comment on above: Performed By: #### 2 758084, 81007046, 0266813, 2724994, 9065066, 8267223, 72341800 ####[facility] [address] [place] [address] Hemoglobin (Bld) [Mass/Vol] 12.7 g/dL Normal 12.0-16.0 [facility] Comment on above: Performed By: #### 2 570392, 11263931, 8485299, 9484438, 9797219, 0917704, 18765201 ####[facility] [address] [place] [address] MCH (RBC) [Entitic mass] 29.7 pg Normal 27.0-34.0 [facility] Comment on above: Performed By: #### 2 109863, 04606237, 3596683, 5083389, 8369000, 6453668, 48957638 ####[facility] [address] [place] [address] MCHC (RBC) [Mass/Vol] 32.9 g/dL Normal 31.4-36.0 [facility] Comment on above: Performed By: #### 2 179612, 39745391, 1816674, 6476366, 9304924, 1204901, 09014420 ####[address] [place] [address] MCV (RBC) [Entitic vol] 90.3 fL Normal 80.0-100.0 [facility] Comment on above: Performed By: #### 2 447178, 34222857, 9501382, 9771288, 4815641, 8379446, 27428928 ####[address] [address] Platelet mean volume (Bld) [Entitic vol] 9.1 fL Normal 6.4-10.8 [facility] Comment on above: Performed By: #### 2 554495, 53991050, 1633042, 3416485, 3559836, 7743392, 44944210 ####[address] [place] [address] Platelets (Bld) [#/Vol] 183.0 E9/L Normal 150.0-500.0 [facility] Comment on above: Performed By: #### 2 144108, 01238635, 1042876, 9828227, 3397071, 4407314, 94805719 ####[address] [place] [address] RBC (Bld) [#/Vol] 4.3 E12/L Normal 4.3-5.9 [facility] Comment on above: Performed By: #### 2 278587, 35470230, 2591375, 0032511, 8199419, 4745536, 98240841 ####[facility] [address] [place] [address] WBC corrected for nucl RBC Auto (Bld) [#/Vol] 6.2 E9/L Normal 4.0-11.0 [facility] Comment on above: Performed By: #### 2 914429, 34631527, 3905604, 1346570, 7523347, 9998555, 53028871 ####[facility] [address] [place] [address] CHEMISTRYOrdered By: SYSTEM SYSTEM on 07-03-2023 Cholesterol [...] Instructions For Use, Marlys Ariadne, March 2018) TSH Qn 3.83 m[IU]/L Normal 0.34 - 5.60 mcIU/mL [facility] Remisol CHEMISTRYOrdered By: Dulce Maria Correa on 07-03-2023 HbA1c (Bld) [Mass fraction] 5.5 % Normal <=5.9% FT [facility] Consultation Noteon 07-03-20 Consultation Note Normal [facility] Comment on above: Result Comment: Elec tronically Signed By: Shell MCMAHON, Eb Yeh\.br\Date and Time Signed: 07/03/23 21:35 EST Consultation Note Normal [facility] Comment on above: Result Comment: Elec tronically Signed By: Cody RICHARDSON MD\.br\Date and Time Signed: 07/03/23 19:12 EST ED Clinical Summaryon 2022 ED Clinical Summary Normal [facility] ED Note-Physicianon 07-03-20 ED Note-Physician Normal [facility] Comment on above: Result Comment: Elec tronically Signed By: Layton Crawford M.D.\.br\Date and Time Signed: 07/03/23 08:17 EST ED Patient Education Noteon 07-03-2023 ED Patient Education Note Normal [facility] ED Patient Summaryon 023 ED Patient Summary Normal [facility] Echo Transthoracic Completeo n 07-03-2023 Echo Transthoracic Complete Normal [facility] Hep Func Panelon 07-03-2023 Albumin [Mass/Vol] 3.8 g/dL Normal 3.3-5.0 [facility] Comment on above: Performed By: #### 2 778238, 82901174, 1502685, 1414314, 9764508, 4823793, 29174191 ####[facility] [address] [place] [address] Albumin/Globulin (S) [Mass conc ratio] 1.3 Normal 1.1-2.2 [facility] Comment on above: Performed By: #### 2 511700, 24499294, 1073329, 5976587, 8628157, 8123305, 19600237 ####[facility] [address] [place] [address] ALP [Catalytic activity/Vol] 58 Int._Unit/L Normal 21-98 [facility] Comment on above: Performed By: #### 2 876639, 62654442, 5869383, 1155549, 1535804, 7110917, 52769139 ####[facility] [address] [place] [address] ALT No additional P-5'-P [Catalytic activity/Vol] 66 Int._Unit/L High 6-46 [facility] Comment on above: Performed By: #### 2 997177, 03884455, 0499248, 2064961, 9938235, 5668425, 01255121 ####[facility] [address] [place] [address] AST [Catalytic activity/Vol] 81 Int._Unit/L [facility] 5-43 [facility] Comment on above: Performed By: #### 2 131507, 86478600, 5868358, 6977445, 1763627, 5081611, 39095497 ####[facility] [address] [place] [address] Bilirubin [Mass/Vol] 0.5 mg/dL Normal 0.0-1.1 [facility] Comment on above: Performed By: #### 2 830713, 16609960, 2201581, 5702020, 4576945, 8977504, 66407062 ####[facility] [address] [place] [address] Bilirubin.direct [Mass/Vol] 0.1 mg/dL Normal 0.1-0.4 [facility] Comment on above: Performed By: #### 2 852255, 84518678, 4123668, 9786479, 0816677, 1559892, 07499444 ####[address] [place] [address] Bilirubin.indirect [Mass or moles/Vol] 0.4 mg/dL Normal 0.1-0.9 [facility] Comment on above: Performed By: #### 2 987328, 63253598, 3776534, 2298235, 9159577, 2968196, 72422086 ####[facility] [address] [place] [address] Globulin (S) [Mass/Vol] 2.9 g/dL Normal 1.4-4.0 [facility] Comment on above: Performed By: #### 2 905707, 51805583, 9096915, 7538289, 0901314, 5524082, 17000862 ####[facility] [address] [place] [address] Protein [Mass/Vol] 6.7 g/dL Normal 6.0-7.8 [facility] Comment on above: Performed By: #### 2 185104, 24519951, 2343569, 7104408, 0909138, 0953808, 58893699 ####[facility] [address] [place] [address] HptT0typ 07-03-2023 HbA1c (Bld) [Mass fraction] 5.5 % Normal <=5.9 [facility] Comment on above: Performed By: #### 2 440693, 75309577, 1058096, 529135042 ####[facility] [address] [place] [address] Interdisciplinary Note - Tico e Manageron 07-03-2023 Interdisciplinary Note - Culture Media Laboratory Assistant Normal [facility] Comment on above: Result Comment: Elec tronically Signed By: Brigitte Nazario\.br\Date and Time Signed: 07/03/23 13:05 EST Lipid Panelon 07-03-2023 Cholesterol [Mass/Vol] 145 mg/dL Normal 120-200 [facility] Comment on above: Performed By: #### 2 698905, 66743595, 6626542, 954953887 ####[facility] [address] [place] [address] Cholesterol in HDL [Mass/Vol] 43 mg/dL Invalid Interpretation Code [facility] Comment on above: Result Comment: HDL > or equal to 60 mg/dL: Low cardiovascular riskHDL < 40 mg/dL : High cardiovascular risk Performed By: #### 2 590423, 21328138, 0458508, 286255518 ####[facility] [address] [place] [address] Cholesterol in LDL [Mass/Vol] 99 mg/dL Normal <=129 [facility] Comment on above: Performed By: #### 2 228614, 35949739, 3738992, 505808438 ####[facility] [address] [place] [address] Cholesterol in VLDL [Mass/Vol] 17 mg/dL Normal 7-40 [facility] Comment on above: Performed By: #### 2 065694, 16157284, 7699708, 534888658 ####[facility] [address] [place] [address] Triglyceride [Mass/Vol] 85 mg/dL Normal <=149 [facility] Comment on above: Performed By: #### 2 059280, 05603323, 1135103, [id number] ####[facility] [address] [place] [address] Magnesiumon 07-03-2023 Magnesium [Mass/Vol] 2.0 mg/dL Normal 1.3-2.4 [facility] Comment on above: Performed By: #### 2 161590, 16128354, 7318695, 4936957, 3951965, 9306332, 69034054 ####[facility] [address] [place] [address] Message from Medicareon 06-15 Message from Medicare [id number]# 1.00TIFF Normal [facility] Monitor Recordon 07-03-2023 Monitor Record [id number]# 1.00TIFF Normal [facility] Monitor Record [id number]# 1.00TIFF Normal [facility] Monitor Record [id number]# 1.00TIFF Normal [facility] PT & PTTon 07-03-2023 aPTT Coag (PPP) [Time] 30.2 second(s) Normal 25.1-36.5 [facility] Comment on above: Result Comment: Para [...] the same coagulation reagent and instrumentation as [facility]. Currently there are no coagulation studies available worldwide for children to 14 days, and no normal ranges. Heparin therapeutic range (represented by Anti-Factor Xa activity of 0.2 - 0.4 U/mL) corresponds to PTT of 56.6 - 109.0 sec. Performed By: #### 1 [id number] ####[facility] [address] [place] [address] INR Coag (PPP) [Relative time] 1.2 {INR} Invalid Interpretation Code [facility] Comment on above: Result Comment: INR results are specifically intended to assess patients stabilized on long-term Anticoagulation therapy suggested INR?s ?Less Intensive Anticoagulation? 2.0 ? 3.0Conventional Range 3.0 ? 4.5 Performed By: #### 1 [id number] ####[facility] [address] [place] [address] PT Coag (PPP) [Time] 13.2 second(s) High 9.4-12.5 [facility] Comment on above: Result Comment: 15 [...] the same coagulation reagent and instrumentation as [facility]. Currently there are no coagulation studies available worldwide for children to 14 days, and no normal ranges. Performed By: #### 1 [id number] ####[facility] [address] [place] [address] Progress Note-Physicianon Progress Note-Physician Normal [facility] Comment on above: Result Comment: Elec tronically Signed By: JAZMÍN MCMAHON, Yosifo\.br\Date and Time Signed: 07/03/23 10:57 EST TSH With T4fr Reflexon 07-03 TSH Qn 3.83 m[IU]/L Normal 0.34-5.60 [facility] Comment on above: Performed By: #### 2 103968, 92947293, 4731511, [id number] ####[facility] [address] [place] [address] Troponinon 07-03-2023 Troponin I.cardiac [Mass/Vol] 27.10 pg/mL Normal 10.10-27.10 [facility] Comment on above: Result Comment: The 95% CI (Confidence Interval) PPV (Positive Predictive Value) for myocardial infarction in females is 38 pg/mL, in males 51 pg/mL. The results should be used in conjunction with clinical conditions of myocardial infarction.(Access High Sensitivity Troponin I Instructions For Use, [employer], March 2018) Performed By: #### 2 569658, 53044447, 0795075, [id number] ####[address] [place] [address] Troponin 0 Hr.on 07-03-2023 Troponin I.cardiac [Mass/Vol] 27.30 pg/mL High 10.10-27.10 [facility] Comment on above: Result Comment: The 95% CI (Confidence Interval) PPV (Positive Predictive Value) for myocardial infarction in females is 38 pg/mL, in males 51 pg/mL. The results should be used in conjunction with clinical conditions of myocardial infarction.(Access High Sensitivity Troponin I Instructions For Use, [employer], March 2018) Performed By: #### 2 937761, 55039286, 3855239, 9595033, 6268564, 2036214, 61254199 ####[facility] [address] [place] [address] Troponin 3 Hr.Ordered By: [employer] SYSTEM on 07-03-2023 Troponin I.cardiac [Mass/Vol] 27.70 pg/mL High 10.10-27.10 [facility] Remisol Comment on above: Interpretive Data: T he 95% CI (Confidence Interval) PPV (Positive Predictive Value) for myocardial infarction in females is 38 pg/mL, in males 51 pg/mL. The results should be used in conjunction with clinical conditions of myocardial infarction. (Access High Sensitivity Troponin I Instructions For Use, [employer], March 2018) Result Comment: The 95% CI (Confidence Interval) PPV (Positive Predictive Value) for myocardial infarction in females is 38 pg/mL, in males 51 pg/mL. The results should be used in conjunction with clinical conditions of myocardial infarction.(Access High Sensitivity Troponin I Instructions For Use, [employer], March 2018) Performed By: #### 1 [id number] ####[facility] [address] [place] [address] UA With Cult Reflexon 2022 Bacteria LM Ql (Urine sed) TRACE Normal Trace [facility] Comment on above: Order Comment: Urina ry Catheter Insertion triggered Urinalysis With Culture Reflex order by discern. Performed By: #### 1 7731996 ####[address] [address] Bilirubin Ql (U) Negative Normal Negative [facility] Comment on above: Order Comment: Urina ry Catheter Insertion triggered Urinalysis With Culture Reflex order by discern. Performed By: #### 1 7246295 ####[address] [address] Clarity (U) CLEAR Normal Clear [facility] Comment on above: Order Comment: Urina ry Catheter Insertion triggered Urinalysis With Culture Reflex order by discern. Performed By: #### 1 1278756 ####[address] [address] Color (U) YELLOW Normal Yellow [facility] Comment on above: Order Comment: Urina ry Catheter Insertion triggered Urinalysis With Culture Reflex order by discern. Performed By: #### 1 3935921 ####[facility] [address] [place] [address] Epithelial cells.squamous LM.HPF (Urine sed) [#/Area] 9-10 Normal 0-2 [facility] Comment on above: Order Comment: Urina ry Catheter Insertion triggered Urinalysis With Culture Reflex order by discern. Performed By: #### 1 7990703 ####[facility] [address] [place] [address] Glucose Test strip (U) [Mass/Vol] Negative Normal Negative [facility] Comment on above: Order Comment: Urina ry Catheter Insertion triggered Urinalysis With Culture Reflex order by discern. Performed By: #### 1 3451653 ####[address] [address] Hemoglobin Ql (U) TRACE Abnormal Negative [facility] Comment on above: Order Comment: Urina ry Catheter Insertion triggered Urinalysis With Culture Reflex order by discern. Performed By: #### 1 2115086 ####[facility] [address] [place] [address] Ketones (U) [Mass/Vol] TRACE Invalid Interpretation Code Negative [facility] Comment on above: Order Comment: Urina ry Catheter Insertion triggered Urinalysis With Culture Reflex order by discern. Performed By: #### 1 8404947 ####[facility] [address] [place] [address] Oldham.plasma/Oldham .RBC (Bld) [Mass ratio] 0-3 Normal 0-3 [facility] Comment on above: Order Comment: Urina ry Catheter Insertion triggered Urinalysis With Culture Reflex order by discern. Performed By: #### 1 8552937 ####[facility] [address] [place] [address] Mucus Ql (Urine sed) TRACE Normal [facility] Comment on above: Order Comment: Urina ry Catheter Insertion triggered Urinalysis With Culture Reflex order by discern. Performed By: #### 1 3711648 ####[facility] [address] [place] [address] Nitrite Ql (U) Negative Normal Negative [facility] Comment on above: Order Comment: Urina ry Catheter Insertion triggered Urinalysis With Culture Reflex order by discern. Performed By: #### 1 6403871 ####[address] [address] pH (U) 5.5 [pH] Invalid Interpretation Code 5.0-9.0 [facility] Comment on above: Order Comment: Urina ry Catheter Insertion triggered Urinalysis With Culture Reflex order by discern. Performed By: #### 1 8924281 ####[address] [address] Protein (U) [Mass/Vol] Negative Normal Negative [facility] Comment on above: Order Comment: Urina ry Catheter Insertion triggered Urinalysis With Culture Reflex order by discern. Performed By: #### 1 4136051 ####[address] [address] Specific gravity (U) [Rel density] 1.025 Invalid Interpretation Code 1.005-1.030 [facility] Comment on above: Order Comment: Urina ry Catheter Insertion triggered Urinalysis With Culture Reflex order by discern. Performed By: #### 1 9567376 ####[address] [address] Type of Urine collection method Robles Normal [facility] Comment on above: Order Comment: Urina ry Catheter Insertion triggered Urinalysis With Culture Reflex order by discern. Performed By: #### 1 5688973 ####[address] [address] Urobilinogen Qn (U) 0.2 {Judith'U}/dL Normal 0.0-1.0 [facility] Comment on above: Order Comment: Urina ry Catheter Insertion triggered Urinalysis With Culture Reflex order by discern. Performed By: #### 1 4743458 ####[address] [address] WBC Auto Ql (U) Negative Normal Negative [facility] Comment on above: Order Comment: Urina ry Catheter Insertion triggered Urinalysis With Culture Reflex order by discern. Performed By: #### 1 8723274 ####[facility] [address] [place] [address] WBC LM.HPF (Urine sed) [#/Area] 0-5 Normal 0-5 [facility] Comment on above: Order Comment: Urina ry Catheter Insertion triggered Urinalysis With Culture Reflex order by discern. Performed By: #### 1 7211181 ####[facility] [address] [place] [address] XR Chest Single Viewon 07-03 XR Chest Single View Normal [facility] eGFRon 07-03-2023 GFR/1.73 sq M.predicted among non-blacks MDRD (S/P/Bld) [Vol rate/Area] 59 mL/min/1.73 m2 Normal >=59 [facility] Comment on above: Order Comment: Order added by Discern Expert. Result Comment: Proofer Apprentice luis kidney disease could be indicated at eGFR's of less than 60 mL/min/1.73m2. Kidney failure is indicated at less than 15 mL/min/1.73m2. Performed By: #### 2 826200, 28852449, 9864652, 7869568, 8082462, 7687338, 68714316 ####[facility] [address] [place] [address] CHEMISTRYOrdered By: SYSTEM SYSTEM on 07-02-2023 Albumin [Mass/Vol] 3.8 g/dL Normal 3.3 - 5.0 gm/dL FT Remisol Albumin/Globulin [Mass ratio] 1.3 {ratio} Normal [...] mg/dL Normal 0.0 - 1 .1 mg/dL FT Remisol Bilirubin.direct [Mass/Vol] 0.1 mg/dL Normal 0.1 [...] 59 mL/min/1.73 m2 Normal >=59mL/min/1 .73 m2 [facility] Chem S Comment on above: Interpretive Data: C hronic kidney disease could be indicated at eGFR's of less than 60 mL/min/1.73m2. Kidney failure is indicated at less than 15 mL/min/1.73m2. Globulin (S) [Mass/Vol] 2.9 g/dL Normal 1.4 - 4.0 gm/dL FT Remisol Glucose [Mass/Vol] 129 mg/dL Normal 55 [...] 27.30 pg/mL High 10.10 - 27.10 pg/mL [facility] Comment on above: Interpretive Data: T he 95% CI (Confidence Interval) PPV (Positive Predictive Value) for myocardial infarction in females is 38 pg/mL, in males 51 pg/mL. The results should be used in conjunction with clinical conditions of myocardial infarction. (Access High Sensitivity Troponin I Instructions For Use, [employer], March 2018) Urea nitrogen [Mass/Vol] 13 mg/dL Normal 5 - 21 mg/dL FT Remisol Urea nitrogen/Creatinine [Mass ratio] 13 mg/mg Normal 10 - 20 [facility] COAGULATIONOrdered By: Lan Eastman on 07-02-2023 aPTT Coag (PPP) [Time] 30.2 s Normal 25.1 - 36.5 second(s) [facility] Auto Coag Comment on above: Interpretive Data: P chandlermetbruce 15 days - 4 weeks 1 - [...] the same coagulation reagent and instrumentation as [facility]. Currently there are no coagulation studies available worldwide for children to 14 days, and no normal ranges. Heparin therapeutic range (represented by Anti-Factor Xa activity of 0.2 - 0.4 U/mL) corresponds to PTT of 56.6 - 109.0 sec. INR Coag (PPP) [Relative time] 1.2 {INR} Invalid Interpretation Code [facility] Auto Coag Comment on above: Interpretive Data: I NR results are specifically intended to assess patients stabilized on long-term Anticoagulation therapy suggested INR s Less Intensive Anticoagulation 2.0 3.0 Conventional Range 3.0 4.5 PT Coag (PPP) [Time] 13.2 s High 9.4 - 1 2.5 second(s) [facility] Auto Coag Comment on above: Interpretive Data: [...] the same coagulation reagent and instrumentation as [facility]. Currently there are no coagulation studies available worldwide for children to 14 days, and no normal ranges. Consent for Treatmenton 06-14 Consent for Treatment [id number] .00TIFF Normal [facility] HEMATOLOGYOrdered By: SYSTEM SYSTEM on 07-02-2023 [...] Interpretation Code Negative [facility] UA Auto SS Oldham.plasma/Oldham .RBC (Bld) [Mass ratio] 0-3 /HPF Normal 0-3/HPF [facility] UA Auto SS Mucus Ql (Urine sed) Trace (07/02/23 10:18 PM) Normal [facility] UA Auto SS Nitrite Ql (U) Negative (07/02/23 10:18 PM) Normal Negative [facility] UA Auto SS pH (U) 5.5 *NA* (07/02/23 10:18 PM) Invalid Interpretation Code 5.0 - 9.0 [facility] UA Auto SS Protein (U) [Mass/Vol] Negative (07/02/23 10:18 PM) Normal Negative [facility] UA Auto SS Specific gravity (U) [Rel density] 1.025 *NA* (07/02/23 10:18 PM) Invalid Interpretation Code 1.005 - 1.030 [facility] UA Auto SS UA Spec Desc Robles (07/02/23 10:18 PM) Normal [facility] UA Auto SS Urobilinogen Qn (U) 0.3494177 {Judith'U}/dL Normal 0.0 - 1.0 EU/dL [facility] UA Auto SS WBC Auto Ql (U) Negative (07/02/23 10:18 PM) Normal Negative [facility] UA Auto SS WBC LM.HPF (Urine sed) [#/Area] 0-5 /HPF Normal 0-5/HPF [facility] UA Auto SS CT Abdomen/Pelvis w/o Contra ston 07-01-2023 CT Abdomen/Pelvis w/o Contrast Normal [facility] Discharge Instructionson Discharge Instructions [id number]#1 .00TIFF Normal [facility] ED Clinical Summaryon 2022 ED Clinical Summary Normal [facility] ED Note-Physicianon 11-18-20 23 ED Note-Physician Normal [facility] Comment on above: Result Comment: Elec tronically Signed By: Koby Masterson DO\Date and Time Signed: 07/01/23 01:03 EST ED Patient Education Noteon 07-01-2023 ED Patient Education Note Normal [facility] ED Patient Summaryon 023 ED Patient Summary Normal [facility] RAD - Preliminary Cat Scan R eporton 07-01-2023 RAD - Preliminary Cat Scan Report [id number]#1 .00TIFF Normal [facility] Auto Diffon 06-30-2023 Basophils/100 WBC (Bld) 0.8 % Normal 0.0-2.0 [facility] Comment on above: Order Comment: Order Added by Discern Expert. Performed By: #### 2 821234, 26111162, 8231263, 2630287, 8824633, 2206457 ####[facility] [address] [place] [address] Basophils/Leukocytes Auto (Bld) [Pure # fraction] 0.0 E9/L Normal 0.0-0.2 [facility] Comment on above: Order Comment: Order Added by Discern Expert. Performed By: #### 2 973411, 73602928, 3324448, 0076359, 5630945, 3392581 ####[address] [place] [address] Eosinophils/100 WBC (Bld) 0.2 % Normal 0.0-8.0 [facility] Comment on above: Order Comment: Order Added by Discern Expert. Performed By: #### 2 576357, 54672633, 0108088, 5031836, 6115738, 7989349 ####[address] [place] [address] Eosinophils/Leukocytes Auto (Bld) [Pure # fraction] 0.0 E9/L Normal 0.0-0.5 [facility] Comment on above: Order Comment: Order Added by Discern Expert. Performed By: #### 2 690419, 80751585, 6354173, 6833992, 7749115, 4336957 ####[facility] [address] [place] [address] Lymphocytes/100 WBC (Bld) 26.7 % Normal 14.0-50.0 [facility] Comment on above: Order Comment: Order Added by Discern Expert. Performed By: #### 2 015583, 52272615, 7749874, 7742453, 5127127, 4017901 ####[address] [place] [address] Lymphocytes/Leukocytes Auto (Bld) [Pure # fraction] 1.2 E9/L Normal 1.0-4.0 [facility] Comment on above: Order Comment: Order Added by Discern Expert. Performed By: #### 2 456151, 35413221, 7232675, 6011100, 4999819, 2611746 ####[address] [address] Monocytes/100 WBC (Bld) 9.8 % Normal 4.0-14.0 [facility] Comment on above: Order Comment: Order Added by Discern Expert. Performed By: #### 2 460085, 08355698, 7679045, 0520586, 1217111, 6088341 ####[address] [place] [address] Monocytes/Leukocytes Auto (Bld) [Pure # fraction] 0.4 E9/L Normal 0.2-1.0 [facility] Comment on above: Order Comment: Order Added by Discern Expert. Performed By: #### 2 182163, 54926103, 7299158, 9646784, 7582074, 3495668 ####[address] [place] [address] Neutrophils/100 WBC (Bld) 62.5 % Normal 36.0-75.0 [facility] Comment on above: Order Comment: Order Added by Discern Expert. Performed By: #### 2 384571, 82304627, 0746123, 0069914, 3017486, 9794078 ####[facility] [address] [place] [address] Neutrophils/Leukocytes Auto (Bld) [Pure # fraction] 2.7 E9/L Normal 2.0-7.5 [facility] Comment on above: Order Comment: Order Added by Discern Expert. Performed By: #### 2 316758, 14300830, 4812616, 7707749, 8401184, 7382892 ####[facility] [address] [place] [address] BMPon 06-30-2023 Creatinine [Mass/Vol] 0.8 mg/dL Normal 0.5-1.3 [facility] Comment on above: Performed By: #### 2 394182, 87211658, 6089453, 4167283, 4179363, 3144221 ####[facility] [address] [place] [address] Urea nitrogen [Mass/Vol] 12 mg/dL Normal 5-21 [facility] Comment on above: Performed By: #### 2 053881, 38092634, 3578194, 1645251, 8868233, 1269967 ####[facility] [address] [place] [address] Urea nitrogen/Creatinine [Mass ratio] 15 No Units Normal 10-20 [facility] Comment on above: Performed By: #### 2 975113, 50867296, 5874289, 8723327, 1187116, 4101386 ####[facility] [address] [place] [address] Anion gap [Moles/Vol] 13 mmol/L Normal 6-16 [facility] Comment on above: Performed By: #### 2 174468, 67896416, 3023906, 8948802, 4282967, 2490127 ####[facility] [address] [place] [address] Calcium [Mass/Vol] 9.5 mg/dL Normal 8.9-11.1 [facility] Comment on above: Performed By: #### 2 862428, 60643794, 2534580, 2234032, 4713138, 8348343 ####[facility] [address] [place] [address] Chloride [Moles/Vol] 103 mmol/L Normal 101-111 [facility] Comment on above: Performed By: #### 2 323317, 55384978, 3385105, 4156951, 4928147, 7009247 ####[facility] [address] [place] [address] CO2 [Moles/Vol] 27 mmol/L Normal 21-31 [facility] Comment on above: Performed By: #### 2 723765, 92371942, 2845023, 5731020, 0092634, 2548542 ####[facility] [address] [place] [address] Glucose [Mass/Vol] 110 mg/dL Normal 55-199 [facility] Comment on above: Result Comment: If t his glucose result represents a fasting glucose, interpretation should refer to the following reference range: 55-99 mg/dL Performed By: #### 2 377366, 30292780, 1492744, 5668218, 1204015, 8592973 ####[facility] [address] [place] [address] Potassium [Moles/Vol] 4.1 mmol/L Normal 3.5-5.3 [facility] Comment on above: Performed By: #### 2 391631, 14133476, 8417866, 3410896, 3348053, 4712601 ####[facility] [address] [place] [address] Sodium [Moles/Vol] 139 mmol/L Normal 135-145 [facility] Comment on above: Performed By: #### 2 177662, 72910237, 0531192, 0228817, 7817757, 8196634 ####[facility] [address] [place] [address] CBC w/ Auto Diffon 3 Erythrocyte distribution width (RBC) [Ratio] 13.7 % Normal 10.9-14.2 [facility] Comment on above: Performed By: #### 2 345601, 63015111, 5635570, 5825004, 4773249, 2181417 ####[address] [address] Hematocrit (Bld) [Volume fraction] 38.0 % Normal 34.0-46.0 [facility] Comment on above: Performed By: #### 2 454812, 09963268, 4745150, 9278322, 3513290, 3792721 ####[address] [address] Hemoglobin (Bld) [Mass/Vol] 12.5 g/dL Normal 12.0-16.0 [facility] Comment on above: Performed By: #### 2 095837, 31012535, 1356636, 8687742, 5598643, 8168198 ####[address] [address] MCH (RBC) [Entitic mass] 29.9 pg Normal 27.0-34.0 [facility] Comment on above: Performed By: #### 2 562701, 32097083, 7342037, 1428917, 4868033, 6826587 ####[address] [address] MCHC (RBC) [Mass/Vol] 32.9 g/dL Normal 31.4-36.0 [facility] Comment on above: Performed By: #### 2 092284, 99573993, 2489041, 0569910, 0514007, 4003270 ####[address] [address] MCV (RBC) [Entitic vol] 90.9 fL Normal 80.0-100.0 [facility] Comment on above: Performed By: #### 2 122644, 08435081, 5239507, 3754763, 9258385, 1630079 ####[address] [address] Platelet mean volume (Bld) [Entitic vol] 8.7 fL Normal 6.4-10.8 [facility] Comment on above: Performed By: #### 2 141186, 28965836, 2481431, 3782848, 0441297, 6437193 ####[facility] [address] [place] [address] Platelets (Bld) [#/Vol] 184.0 E9/L Normal 150.0-500.0 [facility] Comment on above: Performed By: #### 2 081087, 03831861, 6905518, 2356886, 6862344, 2242814 ####[facility] [address] [place] [address] RBC (Bld) [#/Vol] 4.2 E12/L Low 4.3-5.9 [facility] Comment on above: Performed By: #### 2 547406, 59484418, 8569279, 4357961, 8185255, 8492283 ####[facility] [address] [place] [address] WBC corrected for nucl RBC Auto (Bld) [#/Vol] 4.4 E9/L Normal 4.0-11.0 [facility] Comment on above: Performed By: #### 2 774231, 06415870, 2121316, 6720158, 7359604, 1312657 ####[facility] [address] [place] [address] CHEMISTRYOrdered By: SYSTEM SYSTEM on 06-30-2023 Albumin [...] mmol/L Normal 6 - 16 mEq/L F [facility] Remisol AST [Catalytic activity/Vol] 45 [iU]/d High [...] 77 mL/min/1.73 m2 Normal >=59mL/min/1 .73 m2 [facility] Chem S Comment on above: Interpretive Data: [...] Treatmenton 06-14 Consent for Treatment [id number] .00TIFF Normal [facility] Consent for Treatment [id number] .00TIFF Normal [facility] HEMATOLOGYOrdered By: SYSTEM SYSTEM on 06-30-2023 [...] 12.5 g/dL Normal 12.0 - 16.0 gm/dL [facility] MCH (RBC) [Entitic mass] 29.9 pg Normal 27.0 - 34.0 pg FT HemeAutoSS MCHC (RBC) [Mass/Vol] 32.9 g/dL Normal 31.4 - 36.0 gm/dL FT [facility] MCV (RBC) [Entitic vol] 90.9 fL Normal 80.0 - 100.0 fL FT [facility] Platelet mean volume (Bld) [Entitic vol] 8.7 fL Normal 6.4 - 10.8 fL FT [facility] Platelets (Bld) [#/Vol] 184.0 E9/L Normal 150.0 - 500.0 E9/L [facility] RBC (Bld) [#/Vol] 4.2 E12/L Low 4.3 - 5.9 E12/L FT Heme[facility] WBC corrected for nucl RBC Auto (Bld) [#/Vol] 4.4 E9/L Normal 4.0 - 11.0 E9/L FT [facility] Hep Func Panelon 06-30-2023 Bilirubin.indirect [Mass or moles/Vol] UTC Abnormal 0.1-0.9 [facility] Comment on above: Result Comment: Resu lt verified by Discern Rule. Performed result UTC (Unable to Calculate) was sent as an Alpha code due the inability to calculate a valid numeric value. Performed By: #### 2 077605, [id number], 6636011, 2751424, 8628489, 2389889 ####[facility] [address] [place] [address] Albumin [Mass/Vol] 3.8 g/dL Normal 3.3-5.0 [facility] Comment on above: Performed By: #### 2 470534, 39876911, 2232596, 7733608, 6136621, 2790789 ####[facility] [address] [place] [address] Albumin/Globulin (S) [Mass conc ratio] 1.3 Normal 1.1-2.2 [facility] Comment on above: Performed By: #### 2 899039, 33085282, 3198734, 9117189, 1957821, 2531110 ####[facility] [address] [place] [address] ALP [Catalytic activity/Vol] 56 Int._Unit/L Normal 21-98 [facility] Comment on above: Performed By: #### 2 458598, 36240498, 7869338, 7242392, 2539202, 6964105 ####[address] [place] [address] ALT No additional P-5'-P [Catalytic activity/Vol] 50 Int._Unit/L High 6-46 [facility] Comment on above: Performed By: #### 2 391625, 48052599, 6626701, 6213592, 8364177, 4428530 ####[address] [address] AST [Catalytic activity/Vol] 45 Int._Unit/L High 5-43 [facility] Comment on above: Performed By: #### 2 324470, 13578539, 0808189, 6199942, 3310148, 1719488 ####[address] [place] [address] Bilirubin [Mass/Vol] 0.5 mg/dL Normal 0.0-1.1 [facility] Comment on above: Performed By: #### 2 706134, 04845789, 9196377, 0431408, 7177388, 9299260 ####[facility] [address] [place] [address] Globulin (S) [Mass/Vol] 3.0 g/dL Normal 1.4-4.0 [facility] Comment on above: Performed By: #### 2 720377, 70861086, 4208599, 6579598, 1019291, 2462903 ####[address] [place] [address] Protein [Mass/Vol] 6.8 g/dL Normal 6.0-7.8 [facility] Comment on above: Performed By: #### 2 520581, 09497589, 1376605, 0849169, 4479572, 2092645 ####[facility] [address] [place] [address] Bilirubin.direct [Mass/Vol] mg/dL Normal 0.1-0.4 [facility] Comment on above: Performed By: #### 2 564852, 54844424, 2299217, 6086550, 0552934, 5039743 ####[address] [address] Lipase Levelon 06-30-2023 Lipase [Catalytic activity/Vol] 31 U/L Normal 13-58 [facility] Comment on above: Performed By: #### 2 363330, 39961053, 7986836, 3447177, 2529561, 7723131 ####[facility] [address] [place] [address] UA With Cult Reflexon 2022 Bacteria LM Ql (Urine sed) TRACE Normal Trace [facility] Comment on above: Performed By: #### 1 6790007 ####[address] [address] Bilirubin Ql (U) Negative Normal Negative [facility] Comment on above: Performed By: #### 1 9989549 ####[facility] [address] [place] [address] Clarity (U) CLEAR Normal Clear [facility] Comment on above: Performed By: #### 1 9580752 ####[address] [address] Color (U) YELLOW Normal Yellow [facility] Comment on above: Performed By: #### 1 4147890 ####[address] [address] Epithelial cells.squamous LM.HPF (Urine sed) [#/Area] 0-2 Normal 0-2 [facility] Comment on above: Performed By: #### 1 6078889 ####[facility] [address] [place] [address] Glucose Test strip (U) [Mass/Vol] Negative Normal Negative [facility] Comment on above: Performed By: #### 1 1268246 ####[address] [place] [address] Hemoglobin Ql (U) TRACE Abnormal Negative [facility] Comment on above: Performed By: #### 1 0513792 ####[address] [address] Ketones (U) [Mass/Vol] Negative Normal Negative [facility] Comment on above: Performed By: #### 1 6417773 ####[address] [address] Oldham.plasma/Oldham .RBC (Bld) [Mass ratio] 0-3 Normal 0-3 [facility] Comment on above: Performed By: #### 1 8660755 ####[facility] [address] [place] [address] Nitrite Ql (U) Negative Normal Negative [facility] Comment on above: Performed By: #### 1 7043945 ####[address] [address] pH (U) 6.5 [pH] Invalid Interpretation Code 5.0-9.0 [facility] Comment on above: Performed By: #### 1 8771551 ####[facility] [address] [place] [address] Protein (U) [Mass/Vol] Negative Normal Negative [facility] Comment on above: Performed By: #### 1 7756797 ####[address] [place] [address] Specific gravity (U) [Rel density] <=1.005 Invalid Interpretation Code 1.005-1.030 [facility] Comment on above: Performed By: #### 1 7708191 ####[facility] [address] [place] [address] Type of Urine collection method Clean Catch Normal [facility] Comment on above: Performed By: #### 1 0847372 ####[facility] [address] [place] [address] Urobilinogen Qn (U) 0.2 {Judith'U}/dL Normal 0.0-1.0 [facility] Comment on above: Performed By: #### 1 3418356 ####[facility] [address] [place] [address] WBC Auto Ql (U) Negative Normal Negative [facility] Comment on above: Performed By: #### 1 0539861 ####[facility] [address] [place] WBC LM.HPF (Urine sed) [#/Area] 0-5 Normal 0-5 [facility] Comment on above: Performed By: #### 1 3543021 ####[facility] [address] [place], [place] [address] URINALYSISOrdered By: Brian Davis on 06-30-2023 Bacteria [...] PM) Normal Negative [facility] UA Auto SS Oldham.plasma/Oldham .RBC (Bld) [Mass ratio] 0-3 /HPF Normal 0-3/HPF FT UA Auto SS Nitrite Ql (U) Negative (06/30/23 8:00 PM) Normal Negative FT UA Auto SS pH (U) 6.5 *NA* (06/30/23 8:00 PM) Invalid Interpretation Code 5.0 - 9.0 FT UA Auto SS Protein (U) [Mass/Vol] Negative (06/30/23 8:00 PM) Normal Negative FT UA Auto SS Specific gravity (U) [Rel density] <=1.005 *NA* (06/30/23 8:00 PM) Invalid Interpretation Code 1.005 - 1.030 [facility] UA Auto SS UA Spec Desc Clean Catch (06/30/23 8:00 PM) Normal [facility] UA Auto SS Urobilinogen Qn (U) 0.3893680 {Judith'U}/dL Normal 0.0 - 1.0 EU/dL FT UA Auto SS WBC Auto Ql (U) Negative (06/30/23 8:00 PM) Normal Negative FT UA Auto SS WBC LM.HPF (Urine sed) [#/Area] 0-5 /HPF Normal 0-5/HPF [facility] UA Auto SS eGFRon 06-30-2023 GFR/1.73 sq M.predicted among non-blacks MDRD (S/P/Bld) [Vol rate/Area] 77 mL/min/1.73 m2 Normal >=59 [facility] Comment on above: Order Comment: Order added by Discern Expert. Result Comment: Proofer Apprentice luis kidney disease could be indicated at eGFR's of less than 60 mL/min/1.73m2. Kidney failure is indicated at less than 15 mL/min/1.73m2. Performed By: #### 2 415920, 49109278, 0898995, 4078779, 9077518, 6945406 ####[facility] [address] [place] [address] Consent for Procedure/Surger yon 05-23-2023 Consent for Procedure/Surgery [id number]#1 .00TIFF Normal [facility] Consent for Treatmenton 05-14 Consent for Treatment [id number]#1 .[address] [facility] IntraOperative Documentson 1 IntraOperative Documents [id number]#1 .00TIFF [facility] Main OR Intraoperative Recor don 05-23-2023 Main OR Intraoperative Record Normal [facility] Main OR Preoperative Recordo n 05-23-2023 Main OR Preoperative Record Normal [facility] Operative Reporton 3 Operative Report Normal [facility] Comment on above: Result Comment: Elec tronically Signed By: Micheline BROOKS MD\.br\Date and Time Signed: 05/23/23 15:51 EDT Patient Educationon 05-23-20 Patient Education Normal [facility] Ambulatory Visit Summaryon 0 04-26-2023 Ambulatory Visit Summary [facility] Patient Educationon 04-26-20 Patient Education Normal [facility] Urology Office/Clinic Noteon 04-26-2023 Urology Office/Clinic Note Normal [facility] Comment on above: Result Comment: Elec tronically Signed By: Micheline BROOKS MD\.br\Date and Time Signed: 04/26/23 16:11 EDT\.br\Electronically Co-Signed By: Can Bautista\.br\Date and Time Co-Signed: 04/26/23 16:10 EDT ED Note-Physicianon 04-07-20 ED Note-Physician [facility] Comment on above: Result Comment: Elec tronically Signed By: Molina Mendoza PA-C\.br\Date and Time Signed: 04/04/23 16:28 EDT\.br\Electronically Co-Signed By: Jeff Cross DO\.br\Date and Time Co-Signed: 04/07/23 07:[address] Abdomen/Pelvis w/o Contra ston 04-04-2023 CT Abdomen/Pelvis w/o Contrast [facility] Consent for Treatmenton 03-15 Consent for Treatment [id number]#1 .00CD:[address] [facility] Discharge Instructionson Discharge Instructions [id number]# 1.00CD:127 Normal [facility] ED Clinical Summaryon 2022 ED Clinical Summary Normal [facility] ED Patient Education Noteon 04-04-2023 ED Patient Education Note Normal [facility] ED Patient Summaryon 023 ED Patient Summary Normal [facility] ED Traumaon 04-04-2023 ED Trauma [id number]# 1.00CD:127 Normal [facility] XR Shoulder Complete Righton 04-04-2023 XR Shoulder Complete Right Normal [facility] Discharge Instructionson Discharge Instructions [id number]#1 .00CD:127 Normal [facility] ED Clinical Summaryon 2022 ED Clinical Summary Normal [facility] ED Note-Nursingon 01-29-2023 ED Note-Nursing Normal [facility] ED Note-Physicianon 01-30-20 ED Note-Physician Normal [facility] Comment on above: Result Comment: Elec tronically Signed By: Med Medeiros PA-C\.br\Date and Time Signed: 01/28/23 22:46 EDT\.br\Electronically Co-Signed By: Med Medeiros PA-C.br\Date and Time Co-Signed: 01/28/23 22:55 EDT\.br\Electronically Co-Signed By: Layton Crawford M.D.\.br\Date and Time Co-Signed: 01/29/23 01:02 EDT ED Patient Education Noteon 01-29-2023 ED Patient Education Note Normal [facility] ED Patient Summaryon 023 ED Patient Summary Normal [facility] UA With Cult Reflexon 2022 Bilirubin Ql (U) Negative Normal Negative [facility] Comment on above: Performed By: #### 1 [id number] ####[facility] [address] [place] [address] Clarity (U) CLEAR Normal Clear [facility] Comment on above: Performed By: #### 1 6668141 ####[address] [address] Color (U) YELLOW Normal Yellow [facility] Comment on above: Performed By: #### 1 3343858 ####[address] [address] Epithelial cells.squamous LM.HPF (Urine sed) [#/Area] 3-4 Normal 0-2 [facility] Comment on above: Performed By: #### 1 8607819 ####[address] [address] Glucose Test strip (U) [Mass/Vol] Negative Normal Negative [facility] Comment on above: Performed By: #### 1 7379077 ####[address] [address] Hemoglobin Ql (U) 1+ Abnormal Negative [facility] Comment on above: Performed By: #### 1 [id number] ####[address] [address] Ketones (U) [Mass/Vol] Negative Normal Negative [facility] Comment on above: Performed By: #### 1 3112860 ####[address] [address] Oldham.plasma/Oldham .RBC (Bld) [Mass ratio] 0-3 Normal 0-3 [facility] Comment on above: Performed By: #### 1 8922904 ####[address] [address] Nitrite Ql (U) Negative Normal Negative [facility] Comment on above: Performed By: #### 1 4812898 ####[address] [address] pH (U) 6.0 [pH] Invalid Interpretation Code 5.0-9.0 [facility] Comment on above: Performed By: #### 1 [id number] ####[facility] [address] [place] [address] Protein (U) [Mass/Vol] Negative Normal Negative [facility] Comment on above: Performed By: #### 1 [id number] ####[facility] [address] [place] [address] Specific gravity (U) [Rel density] 1.025 Invalid Interpretation Code 1.005-1.030 [facility] Comment on above: Performed By: #### 1 3764251 ####[facility] [address] [place] [address] Type of Urine collection method Clean Catch Normal [facility] Comment on above: Performed By: #### 1 2115922 ####[facility] [address] [place] [address] Urobilinogen Qn (U) 1.0 {Judith'U}/dL Normal 0.0-1.0 [facility] Comment on above: Performed By: #### 1 1526874 ####[facility] [address] [place] [address] WBC Auto Ql (U) Negative Normal Negative [facility] Comment on above: Performed By: #### 1 2729549 ####[facility] [address] [place] [address] WBC LM.HPF (Urine sed) [#/Area] 0-5 Normal 0-5 [facility] Comment on above: Performed By: #### 1 8410551 ####[address] [address] XR Hand 3+ Views Lefton 01-12 XR Hand 3+ Views Left Normal [facility] Consent for Treatmenton 01-12 Consent for Treatment [id number]#1 .00CD:127 Normal [facility] URINALYSISOrdered By: Lan Eastman on 01-28-2023 [...] PM) Normal Negative [facility] UA Auto SS Oldham.plasma/[place]ham .RBC (Bld) [Mass ratio] 0-3 /HPF Normal [...] [facility] UA Auto SS Urobilinogen Qn (U) 1.8887602 {Judith'U}/dL Normal 0.0 - 1.0 EU/dL [facility] UA Auto SS WBC Auto Ql (U) Negative (01/28/23 11:04 PM) Normal Negative [facility] UA Auto SS WBC LM.HPF (Urine sed) [#/Area] 0-5 /HPF Normal 0-5/HPF [facility] UA Auto SS Coding Summary.on 12-08-[address] [facility] MA Mamm Screen w/CAD if perf and 3D Bilon 12-06-2022 MA Mamm Screen w/CAD if perf and 3D Zac Normal [facility] Consent for Treatmenton 11-13 Consent for Treatment [id number]#1 .00CD:127 Normal [facility] Q - SARS CoV2 COVID 19 Ab Ig Clarence 08-20-2021 SARS-CoV-2 (COVID-19) Ab IA Qn 25.84 index High <1.00 [facility] Assistant Director Of Security Comment on above: Order Comment: [facility] Testing performed at: [employer] [employer] [facility], [address], [address] [place], [address], Historic Site Administrator: Ab Vincent MD [facility] Collection Date/Time: [facility] [...] providers and patients using the following websites: [email or web address] Healthcare Providers: For additional information please refer to: http://education.TRIRIGA/faq/CLD893 (This link is being provided for informational/educational purposes only.) This test has been authorized by the FDA under an Emergency Use Authorization (EUA) for use by authorized laboratories. The FDA authorized labeling is available on the [employer] website: www.[employer]ix/Covid19. Performed By: #### 3 4499 #### [facility] Default [address] [place] [address] Reference Laboratory Testing Ordered By: [facility] FinderlyUser on 08-12-2021 SARS-CoV-2 (COVID-19) RNA JORDAN+probe Ql (Resp) Not detected Invalid Interpretation Code Not Detected [facility] [employer] Comment on above: Result Comment: This nucleic acid amplification test was developed and its performance characteristics determined by [employer]. Nucleic acid amplification tests include RT-PCR and [...] detected) result in this assay. Performed at: [address] [id number] PhD Emily Fraser Vital Signs Date Time Vital Sign Value Performing Clinician Facility 11-22-2023 20:52-0400 Body temperature 97.7 [degF] Jayson Calloway [facility] 11-22-2023 20:52-0400 Diastolic blood pressure 80 mm[Hg] Jayson Brodie [facility] 11-22-2023 20:52-0400 Heart rate 60 /min Jayson Brodie [facility] 11-22-2023 20:52-0400 Respiratory rate 17 /min Jayson Brodie [facility] 11-22-2023 20:52-0400 SaO2% (BldA) [Mass fraction] 100 % Jayson Brodie [facility] 11-22-2023 20:52-0400 Systolic blood pressure 147 mm[Hg] Jayson Brodie [facility] 11-22-2023 18:32-0400 Heart rate 87 /min Jayson Brodie [facility] 11-22-2023 18:32-0400 Respiratory rate 18 /min Jayson Brodie [facility] 11-22-2023 18:32-0400 SaO2% (BldA) [Mass fraction] 98 % Jayson Brodie [facility] 11-22-2023 17:50-0400 Diastolic blood pressure 80 mm[Hg] Jayson Brodie [facility] 11-22-2023 17:50-0400 Heart rate 68 /min Jayson Brodie [facility] 11-22-2023 17:50-0400 Respiratory rate 18 /min Jayson Brodie [facility] 11-22-2023 17:50-0400 SaO2% (BldA) [Mass fraction] 98 % Jayson Calloway [facility] 11-22-2023 17:50-0400 Systolic blood pressure 134 mm[Hg] Jayson Calloway [facility] 11-22-2023 16:24-0400 Body temperature 96.8 [degF] Jayson Calloway [facility] 11-22-2023 16:24-0400 Diastolic blood pressure 68 mm[Hg] Jayson Calloway [facility] 11-22-2023 16:24-0400 Systolic blood pressure 131 mm[Hg] Jayson Calloway [facility] 10-05-2023 21:54-0500 Diastolic blood pressure 81 mm[Hg] Kaylinn Dokken [facility] 10-05-2023 21:54-0500 Heart rate 75 /min Kaylinn Dokken [facility] 10-05-2023 21:54-0500 Respiratory rate 19 /min Kaylinn Dokken [facility] 10-05-2023 21:54-0500 SaO2% (BldA) [Mass fraction] 100 % Kaylinn Dokken [facility] 10-05-2023 21:54-0500 Systolic blood pressure 144 mm[Hg] Kaylinn Dokken [facility] 10-05-2023 18:04-0500 Body temperature 97.7 [degF] Kaylinn Dokken [facility] 10-05-2023 18:04-0500 Diastolic blood pressure 78 mm[Hg] iLsylinn Dokken [facility] 10-05-2023 18:04-0500 Heart rate 95 /min Lisylinn Dokken [facility] 10-05-2023 18:04-0500 Respiratory rate 22 /min Lisylinn Dokken [facility] 10-05-2023 18:04-0500 SaO2% (BldA) [Mass fraction] 100 % Caitlyninn Dokken [facility] 10-05-2023 18:04-0500 Systolic blood pressure 131 mm[Hg] Lisylinn Dokken [facility] 09-26-2023 09:13-0500 Body height 165.1 cm Ana [place] DYEING MACHINE FEEDER.CONTRACT ADMINISTRATIVE ASSISTANT Work Phone: [facility] 09-26-2023 09:13-0500 Body weight 50.8 kg Ana [place] DYEING MACHINE FEEDER.CONTRACT ADMINISTRATIVE ASSISTANT Work Phone: [facility] 09-26-2023 09:13-0500 Diastolic blood pressure 57 mm[Hg] Ana [place] DYEING MACHINE FEEDER.CONTRACT ADMINISTRATIVE ASSISTANT Work Phone: [facility] 09-26-2023 09:13-0500 Heart rate 72 /min Ana [place] DYEING MACHINE FEEDER.CONTRACT ADMINISTRATIVE ASSISTANT Work Phone: [facility] 09-26-2023 09:13-0500 Respiratory rate 20 /min Ana [place] DYEING MACHINE FEEDER.CONTRACT ADMINISTRATIVE ASSISTANT Work Phone: [facility] 09-26-2023 09:13-0500 SaO2% (BldA) [Mass fraction] 98 % Ana [place] DYEING MACHINE FEEDER.CONTRACT ADMINISTRATIVE ASSISTANT Work Phone: [facility] 09-26-2023 09:13-0500 Systolic blood pressure 118 mm[Hg] Ana [place] DYEING MACHINE FEEDER.CONTRACT ADMINISTRATIVE ASSISTANT Work Phone: [facility] 09-18-2023 17:51-0500 Body height 165.1 cm Peggy Nazario MD Work Phone: [facility] 09-18-2023 17:51-0500 Body mass index (BMI) [Ratio] 19.34 kg/m2 Peggy Nazario MD Work Phone: [facility] 09-18-2023 17:51-0500 Body temperature 98.01 [degF] Peggy Nazario MD Work Phone: [facility] 09-18-2023 17:51-0500 Body weight 52.71 kg Peggy Nazario MD Work Phone: [facility] 09-18-2023 17:51-0500 Diastolic blood pressure 66 mm[Hg] Peggy Nazario MD Work Phone: [facility] 09-18-2023 17:51-0500 Heart rate 75 /min Peggy Nazario MD Work Phone: [facility] 09-18-2023 17:51-0500 SaO2% (BldA) [Mass fraction] 99 % Peggy Nazario MD Work Phone: [facility] 09-18-2023 17:51-0500 Systolic blood pressure 136 mm[Hg] Peggy Nazraio MD Work Phone: [facility] 09-17-2023 06:00-0500 Diastolic blood pressure 60 mm[Hg] Parveen Armen [facility] 09-17-2023 06:00-0500 Heart rate 61 /min Parveen Armen [facility] 09-17-2023 06:00-0500 Mean blood pressure 79 mm[Hg] Parveen Armen [facility] 09-17-2023 06:00-0500 Respiratory rate 11 /min Parveen Armen [facility] 09-17-2023 06:00-0500 SaO2% (BldA) [Mass fraction] 100 % Parveen Armen [facility] 09-17-2023 06:00-0500 Systolic blood pressure 118 mm[Hg] Parveen Armen [facility] 09-17-2023 05:06-0500 Body temperature 96.98 [degF] Parveen Armen [facility] 09-17-2023 05:06-0500 Diastolic blood pressure 58 mm[Hg] Parveen Armen [facility] 09-17-2023 05:06-0500 gluc 79 mg/dL Parveen Armen [facility] 09-17-2023 05:06-0500 gluc Parveen Armen [facility] 09-17-2023 05:06-0500 Heart rate 85 /min Parveen Armen [facility] 09-17-2023 05:06-0500 Respiratory rate 20 /min Parveen Armen [facility] 09-17-2023 05:06-0500 SaO2% (BldA) [Mass fraction] 98 % Parveen Armen [facility] 09-17-2023 05:06-0500 Systolic blood pressure 140 mm[Hg] Parveen Armen [facility] 09-12-2023 06:38-0500 Diastolic blood pressure 93 mm[Hg] Parveen Armen [facility] 09-12-2023 06:38-0500 Heart rate 78 /min Parveen Armen [facility] 09-12-2023 06:38-0500 Mean blood pressure 109 mm[Hg] Parveen Armen [facility] 09-12-2023 06:38-0500 Respiratory rate 13 /min Parveen Armen [facility] 09-12-2023 06:38-0500 SaO2% (BldA) [Mass fraction] 98 % Parveen Armen [facility] 09-12-2023 06:38-0500 Systolic blood pressure 142 mm[Hg] Parveen Armen [facility] 09-12-2023 05:58-0500 Diastolic blood pressure 96 mm[Hg] Parveen Armen [facility] 09-12-2023 05:58-0500 Heart rate 55 /min Parveen [facility] 09-12-2023 05:58-0500 Mean blood pressure 112 mm[Hg] Parveen [facility] 09-12-2023 05:58-0500 Respiratory rate 16 /min Parveen [facility] 09-12-2023 05:58-0500 SaO2% (BldA) [Mass fraction] 100 % Parveen Armen [facility] 09-12-2023 05:58-0500 Systolic blood pressure 144 mm[Hg] Parveen Armen [facility] 09-12-2023 04:56-0500 Diastolic blood pressure 77 mm[Hg] Parveen Armen [facility] 09-12-2023 04:56-0500 Heart rate 60 /min Parveen Armen [facility] 09-12-2023 04:56-0500 Mean blood pressure 94 mm[Hg] Parveen Armen [facility] 09-12-2023 04:56-0500 Respiratory rate 18 /min Parveen Armen [facility] 09-12-2023 04:56-0500 SaO2% (BldA) [Mass fraction] 100 % Parveen Armen [facility] 09-12-2023 04:56-0500 Systolic blood pressure 129 mm[Hg] Parveen Armen [facility] 09-12-2023 04:27-0500 gluc 96 mg/dL Parveen Armen [facility] 09-12-2023 04:27-0500 gluc Parveen Armen [facility] 09-12-2023 04:13-0500 Body temperature 96.98 [degF] Parveen Armen [facility] 09-12-2023 04:13-0500 Heart rate 83 /min Parveen [facility] 09-12-2023 04:13-0500 Respiratory rate 16 /min Parveen Armen [facility] 07-21-2023 06:46-0500 Blood Pressure Location Taylor HENRIQUEZ [facility] 07-21-2023 06:46-0500 Diastolic blood pressure 57 mm[Hg] Taylor HENRIQUEZ [facility] 07-21-2023 06:46-0500 Heart rate 81 /min Taylor HENRIQUEZ [facility] 07-21-2023 06:46-0500 Respiratory rate 18 /min Taylor HENRIQUEZ [facility] 07-21-2023 06:46-0500 SaO2% (BldA) [Mass fraction] 100 % Taylor HENRIQUEZ [facility] 07-21-2023 06:46-0500 Systolic blood pressure 118 mm[Hg] Taylor HENRIQUEZ [facility] 07-20-2023 09:56-0500 Blood Pressure Location Taylor HENRIQUEZ [facility] 07-20-2023 09:56-0500 Diastolic blood pressure 52 mm[Hg] Taylor HENRIQUEZ [facility] 07-20-2023 09:56-0500 Heart rate 62 /min Taylor HENRIQUEZ [facility] 07-20-2023 09:56-0500 SaO2% (BldA) [Mass fraction] 98 % Taylor HENRIQUEZ [facility] 07-20-2023 09:56-0500 Systolic blood pressure 105 mm[Hg] Taylor HENRIQUEZ [facility] 07-07-2023 12:38-0500 Diastolic blood pressure 59 mm[Hg] Jeff Wadee [facility] 07-07-2023 12:38-0500 Heart rate 94 /min Jeff Tay [facility] 07-07-2023 12:38-0500 Respiratory rate 13 /min Jeff Tay [facility] 07-07-2023 12:38-0500 SaO2% (BldA) [Mass fraction] 94 % Jeff Tay [facility] 07-07-2023 12:38-0500 Systolic blood pressure 123 mm[Hg] Jeff Tay [facility] 07-07-2023 12:00-0500 Diastolic blood pressure 83 mm[Hg] Jeff Tay [facility] 07-07-2023 12:00-0500 Heart rate 102 /min Jeff Tay [facility] 07-07-2023 12:00-0500 Mean blood pressure 96 mm[Hg] Jeff Wadee [facility] 07-07-2023 12:00-0500 Respiratory rate 17 /min Jeff Wadee [facility] 07-07-2023 12:00-0500 SaO2% (BldA) [Mass fraction] 96 % Jeff Wadee [facility] 07-07-2023 11:34-0500 Diastolic blood pressure 73 mm[Hg] Jeff Wadee [facility] 07-07-2023 11:34-0500 Heart rate 93 /min Jeff Wadee [facility] 07-07-2023 11:34-0500 Respiratory rate 18 /min Jeff Wadee [facility] 07-07-2023 11:34-0500 SaO2% (BldA) [Mass fraction] 94 % Jeff Wadee [facility] 07-07-2023 11:34-0500 Systolic blood pressure 109 mm[Hg] Jeff Wadee [facility] 07-07-2023 09:52-0500 Heart rate 103 /min Jeff Wadee [facility] 07-07-2023 08:57-0500 Body temperature 97.88 [degF] Jeff Wadee [facility] 07-07-2023 08:57-0500 Heart rate 134 /min Jeff Wadee [facility] 07-07-2023 08:57-0500 Respiratory rate 24 /min Jeff Wadee [facility] 07-06-2023 14:03-0500 Hourly Rounding Ronobir ABDI [facility] 07-06-2023 14:03-0500 Promise to Return Ronobir ABDI [facility] 07-06-2023 13:34-0500 Hourly Rounding Ronobir ABDI [facility] 07-06-2023 13:00-0500 Hourly Rounding Ronobir ABDI [facility] 07-06-2023 13:00-0500 Promise to Return Ronobir ABDI [facility] 07-06-2023 12:07-0500 Promise to Return Ronobir ABDI [facility] 07-06-2023 12:00-0500 Blood Pressure Location Ronobir ABDI [facility] 07-06-2023 12:00-0500 Body temperature 98.06 [degF] Ronobir ABDI [facility] 07-06-2023 12:00-0500 Diastolic blood pressure 69 mm[Hg] Ronobir ABDI [facility] 07-06-2023 12:00-0500 Heart rate 78 /min Ronobir ABDI [facility] 07-06-2023 12:00-0500 Mean blood pressure 81 mm[Hg] Ronobir ABDI [facility] 07-06-2023 12:00-0500 SaO2% (BldA) [Mass fraction] 94 % Ronobir ABDI [facility] 07-06-2023 12:00-0500 Systolic blood pressure 105 mm[Hg] Ronobir ABDI [facility] 07-06-2023 10:00-0500 Diastolic blood pressure 66 mm[Hg] Ronobir ABDI [facility] 07-06-2023 10:00-0500 Heart rate 77 /min Ronobir ABDI [facility] 07-06-2023 10:00-0500 Mean blood pressure 78 mm[Hg] Ronobir ABDI [facility] 07-06-2023 10:00-0500 Systolic blood pressure 103 mm[Hg] Ronobir ABDI [facility] 07-06-2023 07:00-0500 Body temperature 97.7 [degF] Ronobir ABDI [facility] 07-06-2023 07:00-0500 Diastolic blood pressure 60 mm[Hg] Ronobir ABDI [facility] 07-06-2023 07:00-0500 SaO2% (BldA) [Mass fraction] 93 % Ronobir ABDI [facility] 07-06-2023 07:00-0500 Systolic blood pressure 97 mm[Hg] Ronobir ABDI [facility] 07-06-2023 00:18-0500 Body temperature 97.7 [degF] Ronobir ABDI [facility] 07-06-2023 00:18-0500 SaO2% (BldA) [Mass fraction] 93 % Ronobir ABDI [facility] 07-05-2023 22:10-0500 Mean blood pressure 79 mm[Hg] Ronobir ABDI [facility] 07-05-2023 16:03-0500 Mean blood pressure 88 mm[Hg] Ronobir ABDI [facility] 07-05-2023 11:18-0500 Mean blood pressure 77 mm[Hg] Ronobir ABDI [facility] 07-05-2023 11:18-0500 Body temperature 98.06 [degF] Ronobir ABDI [facility] 07-05-2023 09:59-0500 Mean blood pressure 86 mm[Hg] Ronobir ABDI [facility] 07-05-2023 09:58-0500 Body temperature 98.42 [degF] Ronobir ABDI [facility] 07-04-2023 19:23-0500 Body temperature 97.7 [degF] Ronobir ABDI [facility] 07-03-2023 18:22-0500 BP/Pulse Patient Position Ronobir ABDI [facility] 07-03-2023 14:00-0500 Respiratory rate 17 /min Ronobir ABDI [facility] 07-03-2023 06:46-0500 Respiratory rate 18 /min Ronobir ABDI [facility] 07-03-2023 06:45-0500 BP/Pulse Patient Position Ronobir ABDI [facility] 07-03-2023 04:30-0500 Respiratory rate 16 /min Ronobir ABDI [facility] 07-03-2023 02:45-0500 Heart rate 90 /min Ronobir ABDI [facility] 07-03-2023 02:30-0500 Respiratory rate 12 /min Ronobir ABDI [facility] 07-03-2023 02:15-0500 Respiratory rate 13 /min Ronobir ABDI [facility] 07-02-2023 21:27-0500 Heart rate 141 /min Ronobir ABDI [facility] 07-02-2023 21:27-0500 Respiratory rate 18 /min Ronobir ABDI [facility] 07-01-2023 00:30-0500 Diastolic blood pressure 76 mm[Hg] Kaylinn Dokken [facility] 07-01-2023 00:30-0500 Heart rate 102 /min Kaylinn Dokken [facility] 07-01-2023 00:30-0500 Mean blood pressure 82 mm[Hg] Kaylinn Dokken [facility] 07-01-2023 00:30-0500 Respiratory rate 18 /min Kaylinn Dokken [facility] 07-01-2023 00:30-0500 SaO2% (BldA) [Mass fraction] 95 % Kaylinn Dokken [facility] 07-01-2023 00:30-0500 Systolic blood pressure 93 mm[Hg] Kaylinn Dokken [facility] 06-30-2023 23:24-0500 Diastolic blood pressure 73 mm[Hg] Kaylinn Dokken [facility] 06-30-2023 23:24-0500 Heart rate 102 /min Kaylinn Dokken [facility] 06-30-2023 23:24-0500 Mean blood pressure 92 mm[Hg] Kaylinn Dokken [facility] 06-30-2023 23:24-0500 Respiratory rate 16 /min Kaylinn Dokken [facility] 06-30-2023 23:24-0500 SaO2% (BldA) [Mass fraction] 94 % Kaylinn Dokken [facility] 06-30-2023 23:24-0500 Systolic blood pressure 130 mm[Hg] Kaylinn Dokken [facility] 06-30-2023 22:30-0500 Body temperature 97.88 [degF] Kaylinn Dokken [facility] 06-30-2023 22:30-0500 Diastolic blood pressure 112 mm[Hg] Kaylinn Dokken [facility] 06-30-2023 22:30-0500 Heart rate 114 /min Kaylinn Dokken [facility] 06-30-2023 22:30-0500 Mean blood pressure 120 mm[Hg] Kaylinn Dokken [facility] 06-30-2023 22:30-0500 Respiratory rate 18 /min Kaylinn Dokken [facility] 06-30-2023 22:30-0500 SaO2% (BldA) [Mass fraction] 100 % Kaylinn Dokken [facility] 06-30-2023 22:30-0500 Systolic blood pressure 137 mm[Hg] Kaylinn Dokken [facility] 06-30-2023 19:33-0500 Body temperature 97.7 [degF] Kaylinn Dokken [facility] 06-30-2023 19:33-0500 Heart rate 123 /min Koby Masterson [facility] 04-26-2023 15:19-0400 Blood Pressure Location Micheline BROOKS [facility] 04-26-2023 15:19-0400 Diastolic blood pressure 88 mm[Hg] Micheline BROOKS [facility] 04-26-2023 15:19-0400 Heart rate 80 /min Micheline BROOKS [facility] 04-26-2023 15:19-0400 Systolic blood pressure 139 mm[Hg] Micheline BROOKS [facility] 04-04-2023 16:30-0400 Diastolic blood pressure 51 mm[Hg] Jeff Cross [facility] 04-04-2023 16:30-0400 Heart rate 39 /min Jeff Cross [facility] 04-04-2023 16:30-0400 Respiratory rate 14 /min Jeff Cross [facility] 04-04-2023 16:30-0400 SaO2% (BldA) [Mass fraction] 99 % Jeff Cross [facility] 04-04-2023 16:30-0400 Systolic blood pressure 145 mm[Hg] Jeff Cross [facility] 04-04-2023 15:52-0400 Body temperature 98.06 [degF] Jeff Cross [facility] 04-04-2023 15:52-0400 Diastolic blood pressure 81 mm[Hg] Jeff Cross [facility] 04-04-2023 15:52-0400 Heart rate 66 /min Jeff Wadee [facility] 04-04-2023 15:52-0400 Respiratory rate 14 /min Jeff Wadee [facility] 04-04-2023 15:52-0400 SaO2% (BldA) [Mass fraction] 99 % Jeff Wadee [facility] 04-04-2023 15:52-0400 Systolic blood pressure 161 mm[Hg] Jeff Wadee [facility] 04-04-2023 14:52-0400 Diastolic blood pressure 79 mm[Hg] Jeff Wadee [facility] 04-04-2023 14:52-0400 Heart rate 64 /min Jeff Wadee [facility] 04-04-2023 14:52-0400 Respiratory rate 14 /min Jeff Wadee [facility] 04-04-2023 14:52-0400 SaO2% (BldA) [Mass fraction] 100 % Jeff Wadee [facility] 04-04-2023 14:52-0400 Systolic blood pressure 95 mm[Hg] Jeff Wadee [facility] 04-04-2023 14:07-0400 Body temperature 98.06 [degF] Jeff Wadee [facility] 04-04-2023 13:52-0400 Body temperature 98.24 [degF] Jeff Wadee [facility] 04-04-2023 13:52-0400 Heart rate 107 /min Jeff Wadee [facility] 01-28-2023 21:23-0400 Body temperature 97.7 [degF] [facility] 01-28-2023 21:23-0400 Diastolic blood pressure 78 mm[Hg] [facility] 01-28-2023 21:23-0400 Heart rate 82 /min [facility] 01-28-2023 21:23-0400 Respiratory rate 18 /min [facility] 01-28-2023 21:23-0400 SaO2% (BldA) [Mass fraction] 97 % [facility] 01-28-2023 21:23-0400 Systolic blood pressure 125 mm[Hg] [facility] 09-01-2022 14:01-0500 Diastolic blood pressure 75 mm[Hg] Yennifer Esequiel [facility] 09-01-2022 14:01-0500 Mean blood pressure 91 mm[Hg] Mohstacia Esequiel [facility] 09-01-2022 14:01-0500 Systolic blood pressure 122 mm[Hg] Mohstacia Esequiel [facility] 09-01-2022 13:48-0500 Blood Pressure Location Mohstacia Esequiel [facility] 09-01-2022 13:48-0500 Diastolic blood pressure 79 mm[Hg] Mohamed Esequiel [facility] 09-01-2022 13:48-0500 Heart rate 60 /min Mohamed Esequiel [facility] 09-01-2022 13:48-0500 SaO2% (BldA) [Mass fraction] 98 % Mohamed Esequiel [facility] 09-01-2022 13:48-0500 Systolic blood pressure 149 mm[Hg] Mohamed Esequiel [facility] 06-13-2022 08:54-0400 Blood Pressure Location Mohamed Esequiel [facility] 06-13-2022 08:54-0400 Diastolic blood pressure 68 mm[Hg] Yennifer Iraheta [facility] 06-13-2022 08:54-0400 Heart rate 75 /min Yennifer Iraheta [facility] 06-13-2022 08:54-0400 SaO2% (BldA) [Mass fraction] 96 % Yennifer Iraheta [facility] 06-13-2022 08:54-0400 Systolic blood pressure 132 mm[Hg] Yennifer Iraheta [facility] 03-03-2022 09:59-0400 Blood Pressure Location CARMINA GARRISON [facility] 03-03-2022 09:59-0400 Diastolic blood pressure 89 mm[Hg] CAR[facility] GARRISON [facility] 03-03-2022 09:59-0400 Heart rate 77 /min CARMINA OLMEDORY [facility] [place] 03-03-2022 09:59-0400 Systolic blood pressure 140 mm[Hg] CARMINA OLMEDORY [facility] 02-15-2022 13:17-0400 Body temperature 98.6 [degF] Jeff Cross [facility] 02-15-2022 13:17-0400 Diastolic blood pressure 62 mm[Hg] Jeff Cross [facility] 02-15-2022 13:17-0400 Heart rate 86 /min Jeff Cross [facility] 02-15-2022 13:17-0400 Respiratory rate 18 /min Jeff Cross [facility] 02-15-2022 13:17-0400 SaO2% (BldA) [Mass fraction] 99 % Jeff Cross [facility] 02-15-2022 13:17-0400 Systolic blood pressure 151 mm[Hg] Jeff Cross [facility] 12-24-2021 17:39-0400 Body temperature 97.7 [degF] Jeff Cross [facility] 12-24-2021 17:39-0400 Diastolic blood pressure 70 mm[Hg] Jeff Cross [facility] 12-24-2021 17:39-0400 Heart rate 81 /min Jeff Cross [facility] 12-24-2021 17:39-0400 Respiratory rate 15 /min Jeff Cross [facility] 12-24-2021 17:39-0400 SaO2% (BldA) [Mass fraction] 100 % Jeff Cross [facility] 12-24-2021 17:39-0400 Systolic blood pressure 163 mm[Hg] Jeff Cross [facility] Encounters Encounter Date Encounter Type Care Provider Facility Start: 05-27-2024 End: 05-27-2024 ambulatory [facility] Start: 05-07-2024 End: 05-07-2024 Patient encounter procedure Raphael Goldsmith MD Work Phone: Urology Comment on above: Stricture of female urethra, unspecified stricture type (Primary Dx); Feeling of incomplete bladder emptying Start: 05-07-2024 End: 05-10-2024 ambulatory Raphael Goldsmith MD Work Phone: Urology Start: 03-28-2024 End: 03-28-2024 ambulatory HANNAH BRIAN Not Available Start: 03-26-2024 End: 03-26-2024 ambulatory [facility] Start: 03-06-2024 End: 03-06-2024 ambulatory FELICIA OLIVAS [facility] Start: 02-28-2024 End: 02-28-2024 ambulatory [facility] Start: 02-28-2024 End: 02-28-2024 ambulatory [facility] Start: 02-27-2024 End: 02-27-2024 ambulatory HANNAH BRIAN Not Available Start: [facility]: 02-22-[facility]24 ambulatory [facility] Start: 02-02-2024 End: 02-02-2024 ambulatory LAWRENCE SHINE Not Available Start: 01-30-2024 End: 01-30-2024 ambulatory [facility] Start: 01-09-2024 End: 01-09-2024 ambulatory HANNAH BRIAN Not Available Start: 12-22-2023 Refill Ana Rivas APRN.CNP Work Phone: Cardiology Comment on above: Refill Request Start: 12-01-2023 End: [facility] Start[facility] 11-28-2023 End: 11-28-2023 ambulatory HANNAH BRIAN Not Available Start: 11-22-2023 End: 11-22-2023 Emergency department patient visit Jayson Calloway Facility:[facility] Start: 11-22-2023 End: 11-22-2023 Emergency department patient visit Jayson Calloway [facility] Start: 11-13-2023 End: 11-14-2023 ambulatory MD Hannah Brian Facility:[facility] Start: 11-13-2023 End: 11-13-2023 Patient encounter procedure Hannah Brian [facility] Start: 11-09-2023 End: 11-09-2023 ambulatory HANNAH BRIAN Not Available Start: 11-02-2023 End: 11-02-2023 ambulatory HANNAH BRIAN Not Available Start: 10-31-2023 End: 10-31-2023 ambulatory [facility] Start: 10-30-2023 End: 10-30-2023 ambulatory [facility] Start: 10-19-2023 End: 10-19-2023 ambulatory [facility] Start: 10-19-2023 End: 10-19-2023 ambulatory [facility] Start: 10-17-2023 End: 10-17-2023 ambulatory [facility] Start: 10-16-2023 Telephone encounter Alea lynn MD Work Phone: Cardiology Comment on above: Patient Update Start: 10-16-2023 End: 10-16-2023 Patient encounter procedure Raphael Goldsmith MD Work Phone: Urology Comment on above: Feeling of incomplet e bladder emptying (Primary Dx); Stricture of female urethra, unspecified stricture type; Severe protein-calorie malnutrition (HCC) Start: 10-16-2023 End: 10-16-2023 ambulatory PEGGY NAZARIO Facility:[facility] Start: 10-10-2023 ambulatory [facility] Start: 10-05-2023 End: 10-05-2023 Emergency department patient visit Koby Masterson Facility:[facility] Start: 10-05-2023 End: 10-05-2023 Emergency department patient visit Koby Masterson [facility] Start: 10-02-2023 Telephone encounter Alea F H ammer MD Work Phone: Cardiology Comment on above: Results Start: 09-26-2023 End: 09-26-2023 ambulatory Raphael Goldsmith MD Work Phone: Urology Start: 09-26-2023 Clinisync Result Encounter Generic External Data Provider [facility] External Department Unsolicited Start: 09-26-2023 Clinisync Result Encounter Generic External Data Provider [facility] External [facility] Unsolicited Start: 09-26-2023 End: 09-26-2023 Patient encounter procedure Ana Rivas DYEING MACHINE FEEDER.CONTRACT ADMINISTRATIVE ASSISTANT Work Phone: Cardiology Comment on above: Non-rheumatic mitral regurgitation (Primary Dx); Chronic HFrEF (heart failure with reduced ejection fraction) (HCC); Nonrheumatic tricuspid valve regurgitation; Non-ischemic cardiomyopathy (HCC); Persistent atrial fibrillation (HCC); long term care pharmacist 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; History of cardioversion; Primary hypertension Feeling of incomplet e bladder emptying (Primary Dx); Stricture of female urethra, unspecified stricture type; Severe protein-calorie malnutrition (HCC) Start: 09-21-2023 End: 09-21-2023 ambulatory [facility] Start: 09-21-2023 Telephone encounter Alea lynn MD Work Phone: Cardiology Comment on above: Medication Problem Start: 09-18-2023 End: 09-18-2023 Office outpatient visit 40 minutes Peggy Nazario MD Work Phone: [facility] Comment on above: Mitral valve insuffi ciency, unspecified etiology (Primary Dx); Anxiety; Paroxysmal atrial fibrillation (CMS/HCC); Other cardiomyopathy (CMS/HCC); Hospital discharge follow-up; Other thrombophilia (D68.69); Atherosclerosis of aorta (I70.0) Start: 09-18-2023 End: 09-18-2023 ambulatory PEGGY NAZARIO Not Available Start: 09-17-2023 Telephone encounter Carmina larios APRN.CONTRACT ADMINISTRATIVE ASSISTANT Work Phone: Cardiothoracic Comment on above: Medication Problem Start: 09-17-2023 End: 09-17-2023 Emergency department patient visit Parveen Ayers Facility:[facility] Start: 09-17-2023 End: 09-17-2023 Emergency department patient visit Parveen Ayers [facility] Start: 09-13-2023 Refill Peggy Nazario MD Work Phone: [facility] Comment on above: Anxiety Start: 09-12-2023 Refill Peggy Nazario MD Work Phone: [facility] Comment on above: Gastroesophageal ref lux disease without esophagitis Start: 09-12-2023 End: 09-12-2023 ambulatory CRUZ COVINGTON Not Available Start: 09-12-2023 End: 09-12-2023 Emergency department patient visit Parveen Ayers Facility:[facility] Start: 09-12-2023 End: 09-12-2023 Emergency department patient visit Parveen Ayers [facility] Start: 09-06-2023 End: 09-06-2023 ambulatory PEGGY NAZARIO Not Available Start: 08-28-2023 End: 08-28-2023 ambulatory PEGGY NAZARIO Facility:[facility] Start: 08-24-2023 Evaluation and management of inpatient PEGGY JOHNSONLAS ARAVIND Facility:[facility] Start: 08-23-2023 End: 08-24-2023 Patient encounter procedure Prieto Villalba DO Work Phone: [facility] Start: 08-23-2023 End: 08-24-2023 ambulatory Prieto Villalba DO Work Phone: Cardiology Start: 08-11-2023 End: 08-11-2023 ambulatory PEGGY NAZARIO Not Available Start: 07-24-2023 End: 07-24-2023 ambulatory STEPHAN BOO Not Available Start: 07-24-2023 Telephone encounter Micheline goldberg MD Work Phone: Cardiothoracic Comment on above: Insurance Inquiry Start: 07-21-2023 End: 07-21-2023 ambulatory Taylor HENRIQUEZ Facility:[facility] Start: 07-21-2023 End: 07-21-2023 Admission to same day surgery center Taylor HENRIQUEZ [facility] Start: 07-20-2023 End: 07-20-2023 ambulatory PEGGY NAZARIO Not Available Start: 07-20-2023 End: 07-21-2023 ambulatory Taylor HENRIQUEZ Facility:[facility] Start: 07-20-2023 End: 07-20-2023 Patient encounter procedure Taylor HENRIQUEZ [facility] Start: 07-19-2023 End: 07-20-2023 ambulatory Micheline Cathy BROOKS Facility:[facility] Start: 07-10-2023 End: 07-10-2023 ambulatory PEGGY NAZARIO Not Available Start: 07-07-2023 End: 07-07-2023 Emergency department patient visit Jeff Cross Facility:[facility] Start: 07-07-2023 End: 07-07-2023 Emergency department patient visit Jeff Cross [facility] Start: 07-04-2023 End: 07-06-2023 Pre-admission assessment Taylor HENRIQUEZ [facility] Start: 07-02-2023 End: 07-06-2023 ambulatory Eb Goff Facility:[facility] Start: 07-02-2023 End: 07-06-2023 Observation Noman PATTON [facility] Start: 06-30-2023 End: 07-01-2023 Emergency department patient visit Koby Masterson Facility:[facility] Start: 06-30-2023 End: 07-01-2023 Emergency department patient visit Koby Masterson [facility] Start: 05-23-2023 End: 05-24-2023 ambulatory Micheline BROOKS Facility:[facility] Start: 04-26-2023 End: 04-27-2023 ambulatory Michelinevicente BROOKS Facility: [place] Start: 04-26-2023 End: 04-26-2023 Patient encounter procedure Micheline BROOKS [facility] Start: 04-04-2023 End: 04-04-2023 Emergency department patient visit Jeff Cross Facility:[facility] Start: 04-04-2023 End: 04-04-2023 Emergency department patient visit Jeff Cross [facility] Start: 01-28-2023 End: 01-29-2023 Emergency department patient visit [place] Crawford Facility:[facility] Start: 01-28-2023 End: 01-28-2023 Emergency department patient visit Layton Crawford [facility] Start: 12-05-2022 End: 12-06-2022 ambulatory Peggy Nazario Facility:[facility] Start: 12-05-2022 End: 12-05-2022 Patient encounter procedure Peggy Nazario [facility] Start: 10-25-2022 End: 10-25-2022 Patient encounter procedure Micheline BROOKS [facility] Start: 10-03-2022 End: 10-03-2022 Patient encounter procedure Asuncion Reyna [facility] Jose Angel Start: 09-01-2022 End: 09-01-2022 Patient encounter procedure Yennifer Iraheta [facility] Start: 07-12-2022 End: 07-12-2022 Patient encounter procedure Yennifer Iraheta [facility] Start: 06-13-2022 End: 06-13-2022 Patient encounter procedure Yennifer Iraheta [facility] Start: 03-03-2022 End: 03-03-2022 Patient encounter procedure CARMINA GARRISON [facility] Shira Start: 02-15-2022 End: 02-15-2022 Emergency department patient visit Jeff Cross [facility] Start: 12-24-2021 End: 12-24-2021 Emergency department patient visit Jeff Cross [facility] Start: 08-11-2021 End: 11-10-2021 Patient encounter procedure Peggy Nazario [facility] Procedures Date Procedure Procedure Detail Performing Clinician Start: 05-07-2024 Urnls dip stick/tabl et rgnt auto w/o microscopy Bulk Order Provider Start: 10-16-2023 Urnls dip stick/tabl et rgnt auto w/o microscopy Raphael Goldsmith MD Work Phone: Start: 09-26-2023 Urnls dip stick/tabl et reagent auto microscopy Bulk Order Provider Start: 09-26-2023 [facility] CBC PNL BLD AUTO Ge neric External Data Provider Start: 07-21-2023 Transesophageal echocardiography Taylor HENRIQUEZ Start: 07-05-2023 Catheterization of b oth left and right heart Noman PATTON Start: 01-30-2023 H/O: hysterectomy Status post hysterectomy Peggy Nazario MD Work Phone: Start: 10-25-2022 Cystourethroscopy wi th dilation of urethral stricture Micheline BROOKS Start: 02-23-2021 Cystoscopy Peggy Lara fernandez Start: 02-01-2019 Dilation of urethra Pet bruce Nazario Start: 02-15-2018 Colonoscopy Micheline goldberg MD [...] Screening for malign ant neoplasm of colon [facility] Start: 01-30-2028 Urine microalbumin profile DTa P,Tdap,Td Vaccine (5 - Td or Tdap) [facility] Start: 02-21-2027 Diabetes Screening Diabetes Screenin [facility] Start: 09-26-2026 Diabetes Screening Diabetes Screenin g [facility] Start: 08-31-2026 Diabetes Screening Diabetes Screenin g [facility] Start: 09-26-2024 BP Controlled (<130/80) BP Controlle d (<130/80) [facility] Start: 08-28-2024 BP Controlled (<130/80) BP Controlle d (<130/80) [facility] Start: 07-29-2024 End: 07-29-2024 Patient encounter procedure 07/29/2024 3:45 PM EST Office Visit [facility] [address] [place] [address] Stephan Boo, DO [address] [place] [address] [facility] Start: 07-24-2024 Medicare Annual Well ness (AWV) Medicare Annual Wellness (AWV) [facility] Start: 04-23-2024 End: 04-23-2024 Patient encounter procedure 04/23/2024 11:10 AM EDT Office Visit Urology [address] [address] Raphael Goldsmith MD [address] [place] [address] 6 month follow up per cc chart Urology Comment on above: 6 month follow up pe r cc chart Start: 04-14-2024 Covid-19 Vaccine ( season) Covid-19 Vaccine () [facility] Start: 04-14-2024 Influenza vaccination C [facility] Start: 01-24-2024 ambulatory Facility:[facility] Start: 11-10-2023 End: 11-10-2023 Patient encounter procedure 11/10/2023 1:00 PM EDT Office Visit [facility] [address] [place] [address] Peggy Nazario MD [address] [place] [address] [facility] Start: 11-08-2023 End: 02-07-2024 Basic metabolic 2000 panel - Serum or Plasma BASIC METABOLIC PNL Lab Routine Non-rheumatic mitral regurgitation Persistent atrial fibrillation (HCC) Non-ischemic cardiomyopathy (HCC) Chronic HFrEF (heart failure with reduced ejection fraction) (HCC) Expected: 11/08/2023 (Approximate), Expires: 02/07/2024 [facility] Work Phone: Comment on above: Expected: 11/08/2023 (Approximate), Expires: 02/07/2024 Start: 11-08-2023 End: 09-26-2024 ECG COMPLETE ECG COMPLETE ECG Routine Non-rheumatic mitral regurgitation Persistent atrial fibrillation (HCC) Non-ischemic cardiomyopathy (HCC) Chronic HFrEF (heart failure with reduced ejection fraction) (HCC) Expected: 11/08/2023 (Approximate), Expires: 09/26/2024 [facility] Work Phone: Comment on above: Expected: 11/08/2023 (Approximate), Expires: 09/26/2024 Start: 10-25-2023 End: 01-24-2024 Basic metabolic 2000 panel - Serum or Plasma BASIC METABOLIC PNL Lab Routine Non-rheumatic mitral regurgitation Persistent atrial fibrillation (HCC) Non-ischemic cardiomyopathy (HCC) Chronic HFrEF (heart failure with reduced ejection fraction) (HCC) Expected: 10/25/2023, Expires: 01/24/2024 [facility] Work Phone: Comment on above: Expected: 10/25/2023 , Expires: 01/24/2024 Start: 10-25-2023 End: 09-26-2024 ECG COMPLETE ECG COMPLETE ECG Routine Non-rheumatic mitral regurgitation Persistent atrial fibrillation (HCC) Non-ischemic cardiomyopathy (HCC) Chronic HFrEF (heart failure with reduced ejection fraction) (HCC) Expected: 10/25/2023, Expires: 09/26/2024 [facility] Work Phone: Comment on above: Expected: 10/25/2023 , Expires: 09/26/2024 Start: 10-10-2023 End: 01-09-2024 Basic metabolic 2000 panel - Serum or Plasma BASIC METABOLIC PNL Lab Routine Non-rheumatic mitral regurgitation Persistent atrial fibrillation (HCC) Non-ischemic cardiomyopathy (HCC) Chronic HFrEF (heart failure with reduced ejection fraction) (HCC) Expected: 10/10/2023 (Approximate), Expires: 01/09/2024 [facility] Work Phone: Comment on above: Expected: 10/10/2023 (Approximate), Expires: 01/09/2024 Start: 10-10-2023 End: 09-26-2024 ECG COMPLETE ECG COMPLETE ECG Routine Non-rheumatic mitral regurgitation Persistent atrial fibrillation (HCC) Non-ischemic cardiomyopathy (HCC) Chronic HFrEF (heart failure with reduced ejection fraction) (HCC) Expected: 10/10/2023 (Approximate), Expires: 09/26/2024 [facility] Work Phone: Comment on above: Expected: 10/10/2023 (Approximate), Expires: 09/26/2024 Start: 10-06-2023 End: 10-06-2023 Patient encounter procedure 10/06/2023 1:00 PM EST Office Visit [facility] [address] [place] [address] Peggy Nazario MD [address] [place] [address] [facility] Start: 09-26-2023 End: 12-26-2023 Basic metabolic 2000 panel - Serum or Plasma BASIC METABOLIC PNL Lab Routine Non-rheumatic mitral regurgitation Persistent atrial fibrillation (HCC) Non-ischemic cardiomyopathy (HCC) Chronic HFrEF (heart failure with reduced ejection fraction) (HCC) Expected: 09/26/2023, Expires: 12/26/2023 [facility] Work Phone: Comment on above: Expected: 09/26/2023 , Expires: 12/26/2023 Start: 08-14-2023 Advance Directive Discussion Advance Directive Discussion [facility] Start: 08-14-2023 Behavioral Health Screening Behavioral Health Screening [facility] Start: 08-14-2023 Depression Assessment Depression Ass essment [facility] Start: 04-14-2023 Covid-19 Vaccine () Covid-19 Vaccine () [facility] Start: 04-14-2023 Influenza vaccination Influenza Vacc ine (#1) [facility] Start: 2023 RSV Vaccine (1 - 1-d ose 75+ series) RSV Vaccine (1 - 1-dose 75+ series) [facility] Start: 08-14-2022 Advance Directive Discussion Advance Directive Discussion [facility] Start: 08-14-2022 Depression Assessment Depression Ass essment [facility] Start: 02-15-2019 Colonoscopy Colonoscopy [facility] Start: 02-15-2019 Colorectal Cancer Screening Colorectal Cancer Screening [facility] Start: 02-15-2019 Screening for malign ant neoplasm of colon [facility] Start: 2013 Bone Density Screening Bone Density Screening [facility] Start: 2013 Pneumococcal Vaccine : 65+ (1 - PCV) Pneumococcal Vaccine: 65+ (1 - PCV) [facility] Start: 2013 Pneumococcal Vaccine : 65+ (1 of 1 - PCV) Pneumococcal Vaccine: 65+ (1 of 1 - PCV) [facility] Start: 2013 Screening for osteoporosis Bone Dens ity Screening [facility] Start: 2008 RSV Vaccine (1 - 1-d ose 60+ series) RSV Vaccine (1 - 1-dose 60+ series) [facility] Start: 1998 Shingrix Vaccine (1 of 2) Abdi grix Vaccine (1 of 2) [facility] Start: 1993 Cologuard (FIT-DNA) Cologuard (FIT-D NA) [facility] Start: [address] Colonography [facility] Start: 1993 Diabetes Screening Diabetes Screenin g [facility] Start: 1993 Fecal Occult Blood Fecal Occult Bloo d [facility] Start: 1993 Lipid 1996 panel - S theresa or Plasma Lipid Screening [facility] Start: 1993 Lipid panel Lipid Screening [facility] Start: 1993 Screening for malign ant neoplasm of colon [facility] Start: 1993 Sigmoidoscopy Sigmoidoscopy [facility] Start: 1966 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 Disease Visit Annual PCP Team Chronic Disease Visit [facility] Start: 1966 Depression Screening Depression Scre ening [facility] Start: 1966 Hepatitis C Screening Hepatitis C [facility] Start: 1966 Hepatitis C screening Hepatitis C [facility] Start: 1954 Pneumococcal Vaccine : 65+ Years (1 - PCV) Pneumococcal Vaccine: 65+ Years (1 - PCV) [facility] Start: 1948 Covid-19 Vaccine (#1) Covid-19 Vacci ne (#1) [facility] Start: 1948 Screening for malign ant neoplasm of colon [facility] Cystourethroscopy CYSTO.PANENDO Procedures Routine Feeling of incomplete bladder emptying Stricture of female urethra, unspecified stricture type Ordered: 09/26/2023 [facility] Work Phone: Comment on above: Ordered: 09/26/2023 Dilat female urethra w/suppository&/instlj ini URETHRAL DILATION(FEMALE) Procedures Routine Stricture of female urethra, unspecified stricture type Feeling of incomplete bladder emptying Ordered: 05/07/2024 [facility] Work Phone: Comment on above: Ordered: 05/07/2024 [facility] Immunizations Immunization Date Immunization Notes Care Provider Fa [facility] 01-29-2018 tetanus toxoid, reduced diphtheria toxoid, and acellular pertussis vaccine, adsorbed Peggy Nazario MD Work Phone: [facility] 02-16-2016 tetanus and diphtheria toxoids, adsorbed, preservative free, for adult use (5 Lf of tetanus toxoid and 2 Lf of diphtheria toxoid) Peggy Nazario MD Work Phone: [facility] 12-14-2009 diphtheria, tetanus toxoids and pertussis vaccine Peggy Nazario MD Work Phone: [facility] 12-30-2004 diphtheria and tetanus toxoids, adsorbed for pediatric use Peggy Nazario MD Work Phone: [facility] NEGATED: Highlighted row has not occurred!07-20-2023 influenza virus vaccine, unspecified formulation Taylor HENRIQUEZ [facility] Payers Date Payer Category Payer Unknown [id number] 2016 Unknown [id number] 2013 Medicare [id number] 2013 Medicare [id number] 1948 Unknown [id number] 2.16.8 40.1.612429.3.579.2.727 1948 Unknown [id number] 2.16.8 40.1.286550.3.579.2.727 1948 Unknown [id number] 2.16.8 40.1.597268.3.579.2.72 1948 Unknown [id number] 2.16.8 40.1.944710.3.579.2.72 1948 Unknown [id number] 2.16.8 40.1.360894.3.579.2.72 1948 Unknown [id number] 2.16.8 40.1.792218.3.579.2.72 1948 Unknown [id number] 2.16.8 40.1.715714.3.579.2. 1948 Unknown [id number] 2.16.8 40.1.971698.3.579.2. 1948 Unknown [id number] 2.16.8 40.1.816131.3.579.2. 1948 Unknown [id number] 2.16.8 40.1.517069.3.579.2. 1948 Unknown [id number] 2.16.8 40.1.461748.3.579.2. 1948 Unknown [id number] 2.16.8 40.1.914610.3.579.2. 1948 Unknown [id number] 2.16.8 40.1.757252.3.579.2.72 1948 Unknown [id number] 2.16.8 40.1.148580.3.579.2.72 1948 Unknown [id number] 2.16.8 40.1.673647.3.579.2.72 1948 Unknown [id number] 2.16.8 40.1.846364.3.579.2.72 1948 Unknown [id number] 2.16.8 40.1.516815.3.579.2.727 1948 Unknown [id number] 2.16.84 0.1.793356.3.579.2.1258 1948 Unknown [id number] 2.16.84 0.1.702599.3.579.2.1259 1948 Unknown [id number] 2.16.84 0.1.054115.3.579.2.1258 1948 Unknown [id number] 2.16.84 0.1.252540.3.579.2.1258 1948 Unknown [id number] 2.16.84 0.1.860578.3.579.2.1258 1948 Unknown [id number] 2.16.84 0.1.451988.3.579.2.1258 1948 Unknown [id number] 2.16.84 0.1.684759.3.579.2.1258 1948 Unknown [id number] 2.16.84 0.1.981548.3.579.2.1258 1948 Unknown [id number] 2.16.84 0.1.075046.3.579.2.125 1948 Unknown [id number] 2.16.84 0.1.000066.3.579.2.1258 1948 Unknown [id number] 2.16.840 .1.368680.3.579.2.1258 1948 Unknown [id number] 2.16.840 .1.024590.3.579.2.1258 1948 Unknown [id number] 2.16.840 .1.061272.3.579.2.1258 1948 Unknown [id number] 2.16.840 .1.354053.3.579.2.1259 Social History Date Type Detail Facility Start: 02-23-2021 End: 08-23-2023 Tobacco smoking status Ex-smoker (finding) [facility] Comment on above: Denies Start: 07-08-2020 End: 05-07-2024 Sex Assigned At Female [facility] Tobacco smoking status Never [facility] Comment on above: Denies History of tobacco use Current smoker [facility] Start: 10-24-2017 End: 08-23-2023 Tobacco use and exposure Smokeless tobacco non-user [facility] Start: 10-24-2017 Alcohol intake Current drinke r of alcohol (finding) [facility] Start: 07-08-2020 End: 05-07-2024 History of Social function [facility] Start: 09-26-2012 End: 08-23-2023 Tobacco Comment Quit 1996. social smoker mostly [facility] Start: 1948 Sex Assigned At Not on file [facility] History of tobacco use Cigarette Smoker [...] 1-2 cups/day [facility] NEGATED: Highlighted rowStart: SHARONF History of tobacco use Passive smoker [facility] Goals Date Patient Goal Desired Activity /State Personal health goal Functional Status Date Assessment Result Facility 11-22-2023 Functional Status N/A [facility] 10-05-2023 Functional Status N/A [facility] 09-17-2023 Functional Status N/A [facility] 09-12-2023 Functional Status N/A [facility] 07-21-2023 Functional Status No [facility] 07-20-2023 Functional Status No [facility] 07-07-2023 Functional Status N/A [facility] 07-03-2023 Functional Status N/A [facility] 07-02-2023 Functional Status [facility] 06-30-2023 Functional Status N/A [facility] 04-26-2023 Functional Status N/A [facility] 04-04-2023 Functional Status N/A [facility] 01-28-2023 Functional Status N/A [facility] 10-19-2022 Functional Status N/A [facility] 10-03-2022 Functional Status N/A [facility] [place] 09-01-2022 Functional Status No [facility] 06-13-2022 Functional Status No [facility] 03-03-2022 Functional Status N/A [facility] 02-15-2022 Functional Status N/A [facility] Clinical Notes 12-24-2021 to 05-28-2024 Raphael Goldsmith MD - 05/07/2024 1:35 PM EDNila Braxton [facility] - 05/07/2024 1:19 PM EDTBNila canas [facility] - 05/07/2024 1:19 PM EDTTelephone Encounter - Junito Mendes - 10/16/2023 3:54 PM EST Note Date & Type Note Facility 05-28-2024 Note case [facility] 05-27-2024 [facility] Subjective Harjit Asencio is a 74 y.o. year old female patient being seen for follow up echo performed a few weeks ago. Says she hasn't noticed palpitations as often. C/o waking up with anxiety s/p PPM implant. Doesn't last throughout the day. Denies chest pain and SOB. 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 She is a 74-year-old woman with prior medical history significant for [...] At her recent visit with cardiology at [facility] on 09/26/2023 valsartan was stopped and low-dose lisinopril 5 mg once daily was added. The plan was to add Jardiance. There is note of her to being evaluated by CT surgery Dr. Sorto regarding candidacy for cardiac surgery and she was deemed high risk. She was also evaluated at [facility] cardiothoracic surgery. Initial workup for her mitral valve disease was started. Spironolactone was changed to half tablet twice a day instead of 1 tablet once a day. She was also recommended to start taking digoxin at night instead of the morning. At visit with or on 10/16/2023 I increased her carvedilol to 6.25 mg twice daily. I asked for a cardiopulmonary excise test. After visit with me on 10/30/2023 I added Jardiance 10 mg daily to optimize GDMT for systolic heart failure. I also started her on amiodarone to attempt rhythm control. Following that she stopped both medications due to side effects. After visit with me on 12/01/2023 I referred her to Patty Peguero for consideration of further management of her atrial fibrillation to include A-fib ablation. Dr. Patty Peguero decided to proceed with placement of biventricular pacemaker ICD on 02/28/2024 with a ultimate plan for AV jonathan ablation. Today she reports that she has been doing well. She does not have significant shortness of breath on exertion. No chest pain. She does not feel palpitations. She has no lower extremity edema. No bleeding on Eliquis although she is concerned about microscopic hematuria. Review of Systems Constitutional: Positive for malaise/fatigue. Hematologic/Lymphatic: Bruises/bleeds easily. Gastrointestinal: Positive for change in bowel habit and constipation. Psychiatric/Behavioral: The patient is nervous/anxious. All other systems reviewed and are negative. Objective Visit Vitals BP 138/82 (BP Location: Left arm, Patient Position: Sitting) Pulse 85 Ht 1.651 m (5' 5 ) Wt 54.4 kg (120 lb) SpO2 98% BMI 19.97 kg/m??? Smoking Status Former BSA 1.58 m??? Physical Exam Constitutional: Appearance: She is well-developed. She is not ill-appearing. HENT: Head: Normocephalic and atraumatic. Nose: Nose normal. Eyes: General: No scleral icterus. Pupils: Pupils are equal, round, and reactive to light. Neck: Thyroid: No thyromegaly. Vascular: No JVD. Cardiovascular: Rate and Rhythm: Normal rate. Rhythm irregularly irregular. Pulse (more content not included)... [facility] 05-07-2024 Note HNO ID: [id number] Author: RAPHAEL GOLDSMITH MD Service: ? Author Type: Physician Type: Progress Notes Filed: 05/07/2024 17:01 Note Text: [facility] F[facility] PELVIC MEDICINE AND RECONSTRUCTIVE SURGERY HISTORY OF PRESENT ILLNESS: Harjit Asencio is a 74 year old female history of sigmoid colectomy (1996), NICM, HTN, Afib w RBR, MR, TR, HF, and urethral stricture s/p recent dilation 04/2023 and repeat dilation to 26 Fr in office on 10/16/2023. Here today for 6 month follow up regarding urinary hesitancy, incomplete voiding. Patient states that she has been having gradually worsening symptoms of urinary retention and abdominal straining to urinate, similar to the quality of symptoms she had prior to her previous urethral dilations. Of note patient is taking spironoloactone for HF and states it is making the sensation of urinary retention significantly worse. Denies any leakage, recent infections, hematuria. GENERAL REVIEW OF SYSTEMS: GI:SEE HPI GENITOURINARY:SEE HPI HISTORIES: Present Medications: carvedilol (COREG) 6.25 mg tablet Take 6.25 mg by mouth two times a day with meals. carvedilol (COREG) 12.5 mg tablet Take 12.5 mg by mouth. apixaban (ELIQUIS) 5 mg tab(s) Take 1 tablet by mouth two times a day. atorvastatin (LIPITOR) 40 mg tablet Take 1 tablet by mouth daily at bedtime. carvedilol (COREG) 12.5 mg tablet Take 1 tablet by mouth two times a day with meals. spironolactone (ALDACTONE) 25 mg tablet Take a half tablet by mouth once daily. digoxin (LANOXIN) 125 mcg (0.125 mg) tablet Take HALF tablet by mouth daily (not one complete tablet) lisinopril (ZESTRIL) 10 mg tablet take 1/2 tablet by mouth once daily pantoprazole DR (PROTONIX) 40 mg tablet take 1 tablet by mouth every day polyethylene glycol 3350 17 gram/dose powder Take 17 g by mouth once daily as needed. Dissolve dose in 4 - 8 ounces of liquid and take as directed. LORazepam (ATIVAN) 1 mg tablet Take 1 mg by mouth every 6 hours as needed for anxiety. No current facility-administered medications for this visit. Past Family History: FAMILY HISTORY Problem Relation Age of Onset Diabetes Mother Heart disease Mother Heart disease Father Past Medical History: PAST MEDICAL HISTORY Diagnosis Date Anxiety state, unspecified GERD (gastroesophageal reflux disease) Heart murmur Hemorrhoids HTN (hypertension) Hypothyroid IBS (irritable bowel syndrome) Mitral regurgitation Proctocolitis Rectal pain Tricuspid regurgitation Urethral stricture Past Surgical History: PAST SURGICAL HISTORY Procedure Laterality Date EXC CYST/ABERRANT BREAST TISSUE OPEN 1/> LESION PAST SURGICAL HISTORY OF 1995 tailbone surgery TOTAL ABDOMINAL HYSTERECT W/WO RMVL TUBE OVARY Hysterectomy, MIR UNLISTED PROCEDURE ABDOMEN PERITONEUM AND OMENTUM 1996 Sigmoid colectomy with primary end-to-end colorectal anastomosis. Past Social History: Social History Tobacco Use Smoking status: Former Smokeless tobacco: Never Tobacco comments: Quit 1996. social smoker mostly Vaping Use Vaping status: Never Used Substance Use Topics Alcohol use: Not Currently Drug use: No PHYSICAL EXAM: VITAL SIGNS:There were no vitals taken for this visit. GENERAL: Well appearing, alert, in no acute distress, well-hydrated, well nourished. CV: No extremity swelling, varices, edema, pallor, or erythema ABDOMEN: Soft, nontender, nondistended, no masses. GENITOURINARY: Exam NOT Indicated Tests Reviewed: PVR: 0 mL via bladder US and UA: Pending IMPRESSION: 74 year old F with urethral stricture now s/p urethral dilations on 04/2023 and 10/2023 with symptoms of urinary retention gradually returning 1. Feeling of incomplete bladder emptying - ICD9: 788.21, ICD10: R39.14 -Patient without retention, feelings of urethral pain, plan for repeat urethral dilation in 2-3 months at [place] in office -Plan to assess for atrophic vaginitis at time of urethral dilation due to patient concern for irritation around upper thigh/vagina Erika Ho MD I have personally performed a face to face diagnostic evaluation on this patient. My findings are as above. Raphael Goldsmith MD plan urethral dil per req [facility] 05-07-2024 History of Present illness Narrative [facility] FEMALE PELVIC MEDICINE AND RECONSTRUCTIVE SURGERY HISTORY OF PRESENT ILLNESS: Harjit Asencio is a 74 year old female history of sigmoid colectomy (1996), NICM, HTN, Afib w RBR, MR, TR, HF, and urethral stricture s/p recent dilation 04/2023 and repeat dilation to 26 Fr in office on 10/16/2023. Here today for 6 month follow up regarding urinary hesitancy, incomplete voiding. Patient states that she has been having gradually worsening symptoms of urinary retention and abdominal straining to urinate, similar to the quality of symptoms she had prior to her previous urethral dilations. Of note patient is taking spironoloactone for HF and states it is making the sensation of urinary retention significantly worse. Denies any leakage, recent infections, hematuria. GENERAL REVIEW OF SYSTEMS: GI:SEE HPI GENITOURINARY:SEE HPI HISTORIES: Present Medications: carvedilol (COREG) 6.25 mg tablet Take 6.25 mg by mouth two times a day with meals. carvedilol (COREG) 12.5 mg tablet Take 12.5 mg by mouth. apixaban (ELIQUIS) 5 mg tab(s) Take 1 tablet by mouth two times a day. atorvastatin (LIPITOR) 40 mg tablet Take 1 tablet by mouth daily at bedtime. carvedilol (COREG) 12.5 mg tablet Take 1 tablet by mouth two times a day with meals. spironolactone (ALDACTONE) 25 mg tablet Take a half tablet by mouth once daily. digoxin (LANOXIN) 125 mcg (0.125 mg) tablet Take HALF tablet by mouth daily (not one complete tablet) lisinopril (ZESTRIL) 10 mg tablet take 1/2 tablet by mouth once daily pantoprazole DR (PROTONIX) 40 mg tablet take 1 tablet by mouth every day polyethylene glycol 3350 17 gram/dose powder Take 17 g by mouth once daily as needed. Dissolve dose in 4 - 8 ounces of liquid and take as directed. LORazepam (ATIVAN) 1 mg tablet Take 1 mg by mouth every 6 hours as needed for anxiety. No current facility-administered medications for this visit. Past Family History: FAMILY HISTORY Problem Relation Age of Onset Diabetes Mother Heart disease Mother Heart disease Father Past Medical History: PAST MEDICAL HISTORY Diagnosis Date Anxiety state, unspecified GERD (gastroesophageal reflux disease) Heart murmur Hemorrhoids HTN (hypertension) Hypothyroid IBS (irritable bowel syndrome) Mitral regurgitation Proctocolitis Rectal pain Tricuspid regurgitation Urethral stricture Past Surgical History: PAST SURGICAL HISTORY Procedure Laterality Date EXC CYST/ABERRANT BREAST TISSUE OPEN 1/ [place] PAST SURGICAL HISTORY OF 1995 tailbone surgery TOTAL ABDOMINAL HYSTERECT W/WO RMVL TUBE OVARY Hysterectomy, MIR UNLISTED PROCEDURE ABDOMEN PERITONEUM & OMENTUM 1996 Sigmoid colectomy with primary end-to-end colorectal anastomosis. Past Social History: Social History Tobacco Use Smoking status: Former Smokeless tobacco: Never Tobacco comments: Quit 1996. social smoker mostly Vaping Use Vaping status: Never Used Substance Use Topics Alcohol use: Not Currently Drug use: No PHYSICAL EXAM: VITAL SIGNS:There were no vitals taken for this visit. GENERAL: Well appearing, alert, in no acute distress, well-hydrated, well nourished. CV: No extremity swelling, varices, edema, pallor, or erythema ABDOMEN: Soft, nontender, nondistended, no masses. GENITOURINARY: Exam NOT Indicated Tests Reviewed: PVR: 0 mL via bladder US and UA: Pending IMPRESSION: 74 year old F with urethral stricture now s/p urethral dilations on 04/2023 and 10/2023 with symptoms of urinary retention gradually returning 1. Feeling of incomplete bladder emptying - ICD9: 788.21, ICD10: R39.14 -Patient without retention, feelings of urethral pain, plan for repeat urethral dilation in 2-3 months at [place] in office -Plan to assess for atrophic vaginitis at time of urethral dilation due to patient concern for irritation around upper thigh/vagina Erika Ho MD I have personally performed a face to face diagnostic evaluation on this patient. My findings are as above. Raphael Goldsmith MD plan urethral dil per req documented in this encounter [facility] 05-07-2024 Nurse Note Post Void Residual done on patient with 0 cc residual volume remaining. MD notified. CARISSA Garvey [facility] 05-07-2024 Nurse Note Post Void Residual done on patient with 0 cc residual volume remaining. notified. CARISSA Garvey documented in this encounter [facility] 05-07-2024 Note Patient Outreach (UR OLMN) HARJIT ASENCIO I ([id number]) 1950 F Date Time Provider Department 05/07/24 RAPHAEL GOLDSMITH [facility]OLMN During your visit today, we recorded the following information about you: Allergies As of Date: 05/07/2024 Noted Allergy Reaction CEPHALEXIN 01/30/2023 16 - [...] ANTIBIOTICS) 07/25/2023 5 - Intolerance Date Reviewed: 05/07/2024 Reviewed by: Nila Uriarte OCCA - Fully Assessed Visit Diagnosis:Screening for genitourinary condition [Z13.89] Order(s):URINALYSIS, REFLEX MICROSCOPIC [SQA2712] Order #: [id number]. #:[id number] Prescriptions as of 05/10/2024 - carvedilol (COREG) 6.25 mg tablet Take 6.25 mg by mouth two times a day with meals. - lisinopril (ZESTRIL) 10 mg tablet take 1/2 tablet by mouth once daily - pantoprazole DR (PROTONIX) 40 mg tablet take 1 tablet by mouth every day - carvedilol (COREG) 12.5 mg tablet Take [...] for anxiety. Problem List As Of Date 05/07/2024 Noted Resolved INTESTINAL OBSTRUCT NOS [K56.609] 03/13/2009 [...] malnutrition (HCC) [E43] 08/30/2023 Encounter Status:Closed by [facility], PRODUSER on 05/10/24 [facility] 03-06-2024 Note Heart failure is unc hanged. NYHA Class II. Continue current treatment regimen. Dietary sodium restriction. Encouraged daily monitoring of the patient's weight. Continue current medications. Heart failure will be reassessed in 3 months. [facility] 03-06-2024 Note Wound check today he aling well without s/s of infection 1 month wound check and device interrogation and then q 6 month interrogation [facility] 03-06-2024 Note [facility] CARDIOLOGY PROGR ESS NOTE HPI: Harjit Asencio is a 73 y.o. female here for wound check s/P recent PPM placement HPI Patient here for wound check s/p PPM placement on 02/28/[address] Peguero. C/O lt top of hand pain at times that sometimes wakes me from sleep. Denied any recent illness or injury. Denied chest pain, SOB, Orthopnea or palpitations Review of Systems Constitutional: Negative. Respiratory: Negative. Cardiovascular: Negative. Neurological: Negative. All other systems reviewed and are negative. Visit Vitals Smoking Status Former Allergies Allergen Reactions Amiodarone Nausea And Vomiting Amoxicillin Diarrhea Cephalexin GI intolerance, Nausea And Vomiting and Unknown Egg Derived Other Reaction(s): allergy Empagliflozin Angioedema Turned hands different colors and not breathing Erythromycin Unknown Morphine Unknown and Other Other Reaction(s): Unknown cause Other Reaction(s): Unknown cause Sulfa (Sulfonamide Antibiotics) GI intolerance and Other Valsartan Wheat Bran Other Reaction(s): allergy Medications: Current Outpatient Medications on File Prior to Visit Medication Sig Dispense Refill apixaban (Eliquis) 5 mg tablet Take 1 tablet (5 mg) by mouth in the morning and at bedtime. (Patient taking differently: Take 5 mg by mouth in the morning and at bedtime.) 180 tablet 3 atorvastatin (Lipitor) 40 mg tablet Take 1 tablet (40 mg) by mouth in the evening. Do not take at bedtime 90 tablet 3 carvedilol (Coreg) 6.25 mg tablet Take 1 tablet (6.25 mg) by mouth with breakfast and with evening meal. 180 tablet 3 digoxin (Lanoxin) 125 MCG tablet Take 0.5 tablets (62.5 mcg) by mouth in the evening. 45 tablet 3 doxycycline (Vibra-Tabs) 100 mg tablet Take 1 tablet (100 mg) by mouth in the morning and at bedtime for 10 days. Take with a full glass of water and do not lie down for at least 30 minutes after. 20 tablet 0 LORazepam (Ativan) 0.5 mg tablet Take 1 mg by mouth three times daily. spironolactone (Aldactone) 25 mg tablet Take 0.5 tablets (12.5 mg) by mouth in the morning and at bedtime. (Patient taking differently: Take 12.5 mg by mouth once daily as directed.) 90 tablet 3 No current facility-administered medications on file prior to visit. Physical Exam: Constitutional: Appearance: Normal appearance. Without apparent distress, thin appearing HENT: Head: Normocephalic and atraumatic. Nose: Nose normal. Mouth/Throat: Mouth: Mucous membranes are moist. Eyes: Extraocular Movements: Extraocular movements intact. Conjunctiva/sclera: Conjunctivae normal. Neck: Vascular: No JVD. Cardiovascular: Rate and Rhythm: Normal rate and regular rhythm. Pulses: Dorsalis pedis pulses are 3 on the right side and 3on the left side. Posterior tibial pulses are 3 on the right side and 3 on the left side. Heart sounds: Normal heart sounds, S1 normal and S2 normal. Pulmonary: Effort: Pulmonary effort is normal. Breath sounds: Normal breath sounds. Abdominal: General: Bowel sounds are normal. Palpations: Abdomen is soft. Musculoskeletal: General: Normal range of motion. Cervical back: Normal range of motion. Right lower leg: No edema. Left lower leg: No edema. Skin: General: Skin is warm and dry. Lt upper chest incision well approximated, healing well without S/S of infection, no hematoma or ecchymosis Capillary Refill: Capillary refill takes less than 2 seconds. Neurological: General: No focal deficit present. Mental Status: She is alert and oriented to person, place, and time. Psychiatric: Mood and Affect: Anxious Behavior: Behavior normal. Thought Content: Thought content normal. Judgment: Judgment normal. Labs: 12/13/23 BUN 21, CR 0.94= normal renal function K+ 4.1 , NA 139- normal 10/16/23 CBC normal Renal function normal Liver function normal Pro BNP 4517 Last lab values have been reviewed CV Testin09/20/2023 TTE LVSF reduced- EF 30-35% RV Systolic function and size are normal Biatrial enlargement No aortic valve regrug or stenosis Severe TV regurg- rt sided pressures mildly increased Trace pulm valve regurg Mod to severe MV regurg 10/13/2023 TTE LVSF mildly reduced 40-45% Biatrial severe dilitation RV normal size and function 02/28/24 MOLD CONSTRUCTION SUPERVISOR-P IMPLANT PROCEDURE NOTE DATE OF PROCEDURE: 02/28/2024 PERFORMING PHYSICIAN: Dr. Patty Peguero EDGE BURNISHER UPPERS: MILLI CONSENT: Patient LOCATION: [employer] PROCEDURE PERFORMED: 1. Implantation of Biventricular ICD ([employer]): submuscular implant. 2. U/S venous access 3. Coronary sinus venogram 4. Conscious sedation 5. Fluroscopy INDICATIONS: Ischemic cardiomyopathy LBBB Persistent AF with mod-severe MR POST PROCEDURE EXAM: Patient was hemodynamically stable. COMPLICATIONS: None. IMPRESSION: 1. Successful Biventricular ICD implantation with excellent pacing and sensing parameters. (Submuscular pocket) RECOMMENDATIONS: 1. Occlusive (more content not included)... [facility] 03-06-2024 Note Patient here for wou nd check s/p PPM placement on 02/28/[address] Peguero. [facility] 02-28-2024 Note MOLD CONSTRUCTION SUPERVISOR-P IMPLANT PROCED URE NOTE DATE OF PROCEDURE: 02/28/2024 PERFORMING PHYSICIAN: Dr. Patty Peguero EDGE BURNISHER UPPERS: NA CONSENT: Patient LOCATION: [employer] PROCEDURE PERFORMED: 1. Implantation of Biventricular ICD ([employer]): submuscular implant. 2. U/S venous access 3. Coronary sinus venogram 4. Conscious sedation 5. Fluroscopy INDICATIONS: Ischemic cardiomyopathy LBBB Persistent AF with mod-severe MR PROCEDURAL SEDATION: Versed and Fentanyl. Moderate sedation was administered by the sedation nurse under my supervision and noted in the CVL log. Intraprocedural face to face sedation time: 102min. Monitoring: Cardiac telemetry, Blood pressure, continuous pulse oxymetry. FLUROSCOPY: 16minutes/28 mGy. EBL: 15cc SPECIMEN REMOVED: None INDICATION: 73year old with past medical history of systolic heart failure with a EF of 40%, atrial fibrillation, hypertension, hypothyroidism has been previously treated with digoxin and Coreg. She was initially noted to have atrial fibrillation with rapid ventricular rate and had previously undergone HAROON guided cardioversion in August 2023. At that time she was also noted to have moderate to severe MR and subsequently had a visit with [facility] where evaluation was being done for surgical correction of mitral valve but was noted to have high risk and hence deferred. She also [facility] and thereafter had seen in follow-up. She was in atrial fibrillation and on digoxin. Previously she was attempted on amiodarone but could not tolerated due to adverse effects and she was a poor candidate for A-fib ablation and opted to proceed with MOLD CONSTRUCTION SUPERVISOR-P and AVN ablation. PROCEDURAL DETAILS: Patient was brought to the EP lab in the post absorptive state. A procedural pause was performed identifying the patient, the precedure to be performed and the site of implant. The left chest was prepped and draped in the usual sterile fashion. Preoperative antibiotics IV was administered. Patient was placed in trendelenberg position and ultrasound was used to evaluate the patency of left axillary vein. Left axillary venous access was obtained on 2 occasions using seldinger technique using a 5 Burmese micropunture needle and exchanged for 0.034 wire. I decided to proceed with opening of the pocket. Localinfiltration of 1% Lidocaine was performed and an incision was created in the left upper chest. Dissection was then performed using cautery down. An active fixation [employer] RV pacing lead was then delivered through the 6F sheath to the right ventricle. After confirmation of lead position on orthogonal views (GREGG and GERMAN) to confirm position in the septal aspect, the screw was activated. After confirmation of good sensing parameters, injury pattern and pacing thresholds, 10V pacing was done and no diaphragmatic stimulation was noted. It was then secured in the pocket using three 1-0 Silk sutures. I then proceeded to perform the LV lead placement. A Billy sheath was advanced into the RV over the wire and then manipulated into the CS body. The dilator was then removed and outer sheath advanced into CS body. Thereafter, coronary sinus venogram was performed using a Swanz-Lois catheter, which revealed a nice lateral branch as well as anterolateral and posterolateral vein. I decided to target the lateral branch that was fairly good size but the entry point was very tortuous. Murphys-Lois catheter was then taken out, and then a support J-wire was placed and following which a [employer] straight shaped lead was advanced over 0.014 wire via 120degree inner cannula. The 0.014 wire and the lead tracked into the payton-lateral vein. Although distal pole was poor capture, otther poles had good threshols. While the guiding sheaths were split, the lead buckled out and the whole process had to be redone, I managed to place the lead again and then outer sheath was split. The lead was secured in the pocket using three 0- Silk sutures. The leads were then attached to a [employer] MOLD CONSTRUCTION SUPERVISOR-P device and the leads tug tested. I proceeded to perform a submuscular pocket as she had very little subcutaneous tissue. The pectoralis was carefully dissected until a small pocket was created submuscular plane. Meticulous dissection was performed to ensure there were no bleeders. Pocket hemostasis was secured and it was then copiously and vigorously irrigated with antiobiotic solution. The leads were wrapped under the device and the device was placed in the pocket and the device tacked to the underlying capsule as well as muscle. The muscle was approximated with 1-0 Vicryl. Atrial port was capped. The pocket was closed in layers: subcutaneous layer using 2-0 Vicryl and skin using 3-0 Monocryl. Occlusive dressing was placed on top. Lead parameters were then rechecked through the device as noted below. The patient was returned to (more content not included)... [facility] 02-28-2024 Note Patient: Harjit Ruiz Elif Procedure Information Date/Time: 02/28/24 1230 Procedure: Implant PPM - approved [facility] CHIEF DESIGN 1 EP / [facility] (Cath) Providers: Patty Peguero MD Clinical information reviewed: Tobacco Allergies Meds Med Hx Surg Hx Fam Hx Physical Exam Airway Mallampati: II TM distance: >3 FB Neck ROM: full Cardiovascular Dental Pulmonary Abdominal Anesthesia Plan ASA 2 CSE Anesthetic plan and risks discussed with patient. Use of blood products discussed with patient who. Additional Equipment Requests [facility] 02-22-2024 Note [facility] Reason for visit: Afib+ CMP 02/22/24 Pt here to discuss about MOLD CONSTRUCTION SUPERVISOR-P Prior HPI: Harjit Asencio is a 73 y.o. year old with past medical history of systolic heart failure with a EF of 40%, atrial fibrillation, hypertension, hypothyroidism has been previously treated with digoxin and Coreg. She was initially noted to have atrial fibrillation with rapid ventricular rate and had previously undergone HAROON guided cardioversion in August 2023. At that time she was also noted to have moderate to severe MR and subsequently had a visit with [facility] where evaluation was being done for surgical correction of mitral valve but was noted to have high risk and hence deferred. She also had an [facility] and thereafter had seen in follow-up who had added SG PL 2 inhibitors. She had a cardiopulmonary exercise test done in October 2023 during which he exercised for 7 minutes. She was in atrial fibrillation and on digoxin. Previously she was attempted on amiodarone but could not tolerated due to adverse effects and she is being referred for A-fib ablation. She thinks afib is coming and going . She denies chest pain, SOB, palpitations, and bleeding on Eliquis. PMH: Past Medical History: Diagnosis Date Abnormal ECG Arrhythmia Atrial fibrillation (CMS/HCC) CHF (congestive heart failure) (CMS/HCC) Heart murmur Heart valve disease Hypertension Nonischemic cardiomyopathy (CMS/HCC) PSH: Past Surgical History: Procedure Laterality Date CARDIOVERSION SH: Social Determinants of Health Tobacco Use: Medium Risk (02/22/2024) Patient History Smoking Tobacco Use: Former Smokeless Tobacco Use: Never Passive Exposure: Past Alcohol Use: Not on file Financial Resource Strain: Not on file Food Insecurity: Not on file Transportation Needs: Not on file Physical Activity: Not on file Stress: Not on file Social Connections: Not on file Intimate Partner Violence: Unknown (10/05/2023) [place] Safety & [place] Fear of Current or Ex-Partner: Not on file Emotionally Abused: Not on file Physically Abused: Not on file Sexually Abused: Not on file Physically or Sexually Abused: Not on file Depression: Not at risk (02/22/2024) PHQ-2 PHQ-2 Score: 0 Housing Stability: Not on file Utilities: Not on file Allergies: Allergies Allergen Reactions Amiodarone Nausea And Vomiting Amoxicillin Diarrhea Cephalexin GI intolerance, Nausea And Vomiting and Unknown Egg Derived Other Reaction(s): allergy Empagliflozin Angioedema Turned hands different colors and not breathing Erythromycin Unknown Morphine Unknown and Other Other Reaction(s): Unknown cause Other Reaction(s): Unknown cause Sulfa (Sulfonamide Antibiotics) GI intolerance and Other Valsartan Wheat Bran Other Reaction(s): allergy Weight: 51.4kg Visit Vitals BP 100/55 (BP Location: Left arm, Patient Position: Standing, BP Cuff Size: Adult) Pulse 75 Ht 1.651 m (5' 5 ) Wt 51.4 kg (113 lb 6.4 oz) BMI 18.87 kg/m??? Smoking Status Former BSA 1.54 m??? Meds: Current Outpatient Medications on File Prior to Visit Medication Sig Dispense Refill apixaban (Eliquis) 5 mg tablet Take 1 tablet (5 mg) by mouth in the morning and at bedtime. (Patient taking differently: Take 5 mg by mouth in the morning and at bedtime.) 180 tablet 3 atorvastatin (Lipitor) 40 mg tablet Take 1 tablet (40 mg) by mouth in the evening. Do not take at bedtime 90 tablet 3 carvedilol (Coreg) 6.25 mg tablet Take 1 tablet (6.25 mg) by mouth with breakfast and with evening meal. 180 tablet 3 digoxin (Lanoxin) 125 MCG tablet Take 0.5 tablets (62.5 mcg) by mouth in the evening. 45 tablet 3 LORazepam (Ativan) 0.5 mg tablet Take 1 mg by mouth three times daily. spironolactone (Aldactone) 25 mg tablet Take 0.5 tablets (12.5 mg) by mouth in the morning and at bedtime. (Patient taking differently: Take 12.5 mg by mouth once daily as directed.) 90 tablet 3 No current facility-administered medications on file prior to visit. ROS: Review of Systems Gastrointestinal: Positive for excessive appetite and nausea. Genitourinary: Positive for incomplete emptying. Neurological: Positive for light-headedness. Physical Exam: Constitutional General Appearance: well-nourished, well-developed, appears stated age Level of Distress: comfortable Psychiatric Mental Status: alert, normal affect Orientation: oriented to time, place, and person Insight: good judgement Eyes Lids and Conjunctivae: non-injected, no xanthelasma ENMT Ears: no lesions on external ear Nose: no lesions on external nose Oropharynx: no cyanosis, no pallor Neck Neck: supple, trachea midline Carotid Arteries: bilateral normal upstroke, no bruits Jugular Veins: normal jugular venous pressure Thyroid: not enlarged Lungs Respiratory Effort: unlabored Ch (more content not included)... [facility] 01-30-2024 Note [facility] Reason for visit: Afib+ CMP HPI: Harjit Asencio is a 73 y.o. year old with past medical history of systolic heart failure with a EF of 40%, atrial fibrillation, hypertension, hypothyroidism has been previously treated with digoxin and Coreg. She was initially noted to have atrial fibrillation with rapid ventricular rate and had previously undergone HAROON guided cardioversion in August 2023. At that time she was also noted to have moderate to severe MR and subsequently had a visit with [facility] where evaluation was being done for surgical correction of mitral valve but was noted to have high risk and hence deferred. She also had an [facility] and thereafter had seen in follow-up who had added SG PL 2 inhibitors. She had a cardiopulmonary exercise test done in October 2023 during which he exercised for 7 minutes. She was in atrial fibrillation and on digoxin. Previously she was attempted on amiodarone but could not tolerated due to adverse effects and she is being referred for A-fib ablation. She thinks afib is coming and going . She denies chest pain, SOB, palpitations, and bleeding on Eliquis. PMH: Past Medical History: Diagnosis Date Abnormal ECG Arrhythmia Atrial fibrillation (CMS/HCC) CHF (congestive heart failure) (CMS/HCC) Heart murmur Heart valve disease Hypertension Nonischemic cardiomyopathy (CMS/HCC) PSH: Past Surgical History: Procedure Laterality Date CARDIOVERSION SH: Social Determinants of Health Tobacco Use: Medium Risk (12/01/2023) Patient History Smoking Tobacco Use: Former Smokeless Tobacco Use: Never Passive Exposure: Not on file Alcohol Use: Not on file Financial Resource Strain: Not on file Food Insecurity: Not on file Transportation Needs: Not on file Physical Activity: Not on file Stress: Not on file Social Connections: Not on file Intimate Partner Violence: Unknown (10/05/2023) [facility] Fear of Current or Ex-Partner: Not on file Emotionally Abused: Not on file Physically Abused: Not on file Sexually Abused: Not on file Physically or Sexually Abused: Not on file Depression: Not on file Housing Stability: Not on file Utilities: Not on file Allergies: Allergies Allergen Reactions Amiodarone Nausea And Vomiting Amoxicillin Diarrhea Cephalexin GI intolerance, Nausea And Vomiting and Unknown Egg Derived Other Reaction(s): allergy Erythromycin Unknown Morphine Unknown and Other Other Reaction(s): Unknown cause Other Reaction(s): Unknown cause Sulfa (Sulfonamide Antibiotics) GI intolerance and Other Valsartan Wheat Bran Other Reaction(s): allergy Weight: 50.8kg Visit Vitals BP 124/72 (BP Location: Right arm, Patient Position: Sitting) Pulse 80 Ht 1.651 m (5' 5 ) Wt 50.8 kg (112 lb) SpO2 98% BMI 18.64 kg/m??? Smoking Status Former BSA 1.53 m??? Meds: Current Outpatient Medications on File Prior to Visit Medication Sig Dispense Refill apixaban (Eliquis) 5 mg tablet Take 1 tablet (5 mg) by mouth in the morning and at bedtime. 180 tablet 3 atorvastatin (Lipitor) 40 mg tablet Take 1 tablet (40 mg) by mouth in the evening. Do not take at bedtime 90 tablet 3 carvedilol (Coreg) 6.25 mg tablet Take 1 tablet (6.25 mg) by mouth with breakfast and with evening meal. 180 tablet 3 digoxin (Lanoxin) 125 MCG tablet Take 0.5 tablets (62.5 mcg) by mouth in the evening. 45 tablet 3 LORazepam (Ativan) 0.5 mg tablet Take 1 mg by mouth three times daily. spironolactone (Aldactone) 25 mg tablet Take 0.5 tablets (12.5 mg) by mouth in the morning and at bedtime. (Patient taking differently: Take 12.5 mg by mouth once daily as directed.) 90 tablet 3 No current facility-administered medications on file prior to visit. ROS: Review of Systems Gastrointestinal: Positive for excessive appetite and nausea. Genitourinary: Positive for incomplete emptying. Neurological: Positive for light-headedness. Physical Exam: Constitutional General Appearance: well-nourished, well-developed, appears stated age Level of Distress: comfortable Psychiatric Mental Status: alert, normal affect Orientation: oriented to time, place, and person Insight: good judgement Eyes Lids and Conjunctivae: non-injected, no xanthelasma ENMT Ears: no lesions on external ear Nose: no lesions on external nose Oropharynx: no cyanosis, no pallor Neck Neck: supple, trachea midline Carotid Arteries: bilateral normal upstroke, no bruits Jugular Veins: normal jugular venous pressure Thyroid: not enlarged Lungs Respiratory Effort: unlabored Chest Exam: normal curvature, no thoracic deformity Auscultation: clear, no wheezing, no rales, no rhonchi Cardiovascular Rate And Rhythm: regular Heart Sounds: normal S1, normal s2, no gallop Systolic Murmur: not heard Diastolic Murmur: not heard (more content not included)... [facility] 12-22-2023 Telephone encounter Note The following approved medication requests have been transmitted electronically. Requested Prescriptions Signed Prescriptions Disp Refills lisinopril (ZESTRIL) 10 mg tablet 45 tablet 0 Sig: take 1/2 tablet by mouth once daily Authorizing Provider: Benitez SAMUELS pantoprazole DR (PROTONIX) 40 mg tablet 90 tablet 0 Sig: take 1 tablet by mouth every day Authorizing Provider: Benitez SAMUELS APRN.CONTRACT ADMINISTRATIVE ASSISTANT [facility] 12-22-2023 Miscellaneous Notes The following approved medication requests have been transmitted electronically. Requested Prescriptions Signed Prescriptions Disp Refills lisinopril (ZESTRIL) 10 mg tablet 45 tablet 0 Sig: take 1/2 tablet by mouth once daily Authorizing Provider: Benitez SAMUELS pantoprazole DR (PROTONIX) 40 mg tablet 90 tablet 0 Sig: take 1 tablet by mouth every day Authorizing Provider: Benitez SAMUELS APRN.CONTRACT ADMINISTRATIVE ASSISTANT documented in this encounter [facility] 12-01-2023 Note [facility] Germain Asencio is a 73 y.o. year old female patient being seen for Follow-up (1 month follow up ) Patient Active Problem List Diagnosis Acid reflux [...] Topics Alcohol use: Never Drug use: Never AKANKSHA Harjit is seen in follow up. She is a 73-year-old woman with prior [...] At her recent visit with cardiology at [facility] on 09/26/2023 valsartan was stopped and low-dose lisinopril 5 mg once daily was added. The plan was to add Jardiance. There is note of her to being evaluated by CT surgery Dr. Sorto regarding candidacy for cardiac surgery and she was deemed high risk. She was also evaluated at [facility] cardiothoracic surgery. Initial workup for her mitral valve disease was started. Spironolactone was changed to half tablet twice a day instead of 1 tablet once a day. She was also recommended to start taking digoxin at night instead of the morning. At visit with me on 10/16/2023 I increased her carvedilol to 6.25 mg twice daily. I asked for a cardiopulmonary excise test. After visit with me on 10/30/2023 I added Jardiance 10 mg daily to optimize GDMT for systolic heart failure. I also started her on amiodarone to attempt rhythm control. Following that she stopped both medications due to side effects. Today she reports that she has been doing reasonably better after her PCP reduced her alprazolam dosage. She is worried that she is peeing too much on spironolactone 12.5 mg twice daily. She does not have significant shortness of breath on exertion. No chest pain. She does not feel palpitations. She has no lower extremity edema. Review of Systems Constitutional: Positive for malaise/fatigue. Gastrointestinal: Positive for change in bowel habit and constipation. All other systems reviewed and are negative. Objective Visit Vitals BP 128/70 (BP Location: Left arm, Patient Position: Sitting, BP Cuff Size: Adult) Pulse 84 Resp 11 Ht 1.651 m (5' 5 ) Wt 48.5 kg (107 lb) SpO2 97% BMI 17.81 kg/m??? Smoking Status Former BSA 1.49 m??? Physical Exam Constitutional: Appearance: She is well-developed. She is not ill-appearing. HENT: Head: Normocephalic and atraumatic. Nose: Nose normal. Eyes: General: No scleral icterus. Pupils: Pupils are equal, round, and reactive to light. Neck: Thyroid: No thyromegaly. Vascular: No JVD. Cardiovascular: Rate and Rhythm: Normal rate. Rhythm irregularly irregular. Pulses: Radial pulses are [...] soft. Tenderness: There is no abdominal tenderness. Musculoskeletal: General: No swelling. Cervical back: Neck supple. Skin: General: Skin is warm and dry. Neurological: General: No focal deficit present. Mental Sta (more content not included)... [facility] 11-22-2023 Hospital Discharge instructions Patient Education 11/22/2023 20:40:30 Constipation, Adult, Xhwp-ek-Frrr Constipation, Adult Constipation is when a person [...] high in fat and sugar, such as: ?Burmese fries. ?Hamburgers. ?Cookies. ?Candy. ?Soda. Drink enough fluid to keep your pee (urine) pale yellow. General instructions Exercise regularly or as told by your doctor. Try to do 150 minutes of exercise each week. Go to the restroom when you feel like you need to poop. Do not hold it in. Take xomm-mzm-obutbdi and prescription medicines only as told by [...] keep your pee (urine) pale yellow. Take zyzq-mlq-marckmp and prescription medicines only as told by your doctor. These include any fiber supplements. This information is not intended to replace advice given to you by your health care provider. Make sure you discuss any questions you have with your health care provider. Document Revised: 06/17/2020 Document Reviewed: 06/17/2020 [employer] Patient Education 2022 [employer]. Follow Up Care 11/22/2023 16:18:30 With:Snehal MCMAHON, Hannah De Leon Address: [address] [place] [address]- When:11/25/2023 [facility] 10-30-2023 Note [facility] Subjective Harjit Asencio is a 73 y.o. year old female patient being seen to discuss MitraClip. She has not had CPX done yet. She wasn't able to tolerate the dose of spironolactone in the evenings due to frequent urination. She's taking a full 25mg in the morning. Says she doesn't think she's been in afib for the past 3 days because she feels a lot better. Denies chest pain, SOB, lightheadedness, and palpitations. Denies bleeding on Eliquis also. Patient Active Problem List Diagnosis Acid reflux [...] At her recent visit with cardiology at [facility] on 09/26/2023 valsartan was stopped and low-dose lisinopril 5 mg once daily was added. The plan was to add Jardiance. There is note of her to being evaluated by CT surgery Dr. Sorto regarding candidacy for cardiac surgery and she was deemed high risk. She was also evaluated at [facility] cardiothoracic surgery. Initial workup for her mitral valve disease was started. Spironolactone was changed to half tablet twice a day instead of 1 tablet once a day. She was also recommended to start taking digoxin at night instead of the morning. At last visit with me on 10/16/2023 I increased her carvedilol to 6.25 mg twice daily. I asked for a cardiopulmonary excise test that will be done tomorrow. Today she reports that over the past 3 days she has not felt palpitations. She feels much better. Her shortness of breath has improved significantly and currently she does not feel significant symptoms of shortness of breath.She is very anxious and worried about her condition. She has no significant lower extremity edema. She does not feel dizziness or lightheadedness. Review of Systems All other systems reviewed and are negative. Objective Visit Vitals BP 106/70 (BP Location: Left arm, Patient Position: Sitting) Pulse 50 Ht 1.651 m (5' 5 ) Wt 49.4 kg (109 lb) SpO2 99% BMI 18.14 kg/m??? Smoking Status Former BSA 1.51 m??? Physical Exam Constitutional: Appearance: She is well-developed. She is not ill-appearing. HENT: Head: Normocephalic and atraumatic. Nose: Nose normal. Eyes: General: No scleral icterus. Pupils: Pupils are equal, round, and reactive to light. Neck: Thyroid: No thyromegaly. Vascular: No JVD. Cardiovascular: Rate and Rhythm: Normal rate. Rhythm irregularly irregular. Pulses: Radial pulses are [...] soft. Tenderness: There is no abdominal tenderness. Musculoskeletal: General: No swelling. Cervical back: Neck supple. Skin (more content not included)... [facility] 10-16-2023 Miscellaneous Notes October 16, 2023 Patient Contact Number: [phone] Patient last seen within the last year: [...] Yes Junito Mendes documented in this encounter [facility] 10-16-2023 Note [facility] Subjective Harjit Asencio is a 73 y.o. year old female patient being seen per CT surgery for mitraclip. She was seen at [facility] ED yesterday for SOB. She had an [...] At her recent visit with cardiology at [facility] on 09/26/2023 valsartan was stopped and low-dose lisinopril 5 mg once daily was added. The plan was to add Jardiance. There is note of her to being evaluated by CT surgery Dr. Sorto regarding candidacy for cardiac surgery and she was deemed high risk. She was also evaluated at [facility] cardiothoracic surgery. Initial workup for her mitral [...] no abdominal tenderness. (more content not included)... [facility] 10-16-2023 Note This report has been cancelled. [facility] 10-16-2023 Note HNO ID: [id number] Author: LIA RAMIREZ CT Service: ? Author Type: Clinical Stucco Laborer Type: Progress Notes Filed: 10/16/2023 11:20 Note [...] EMERGENT procedures): No specimen collected. DAWSON Farr [facility] 10-16-2023 History of Present illness Narrative UNIVERSAL PROTOCOL / SAFETY CHECKLIST [...] performed due to it helping the symptoms M.DElise[facility] NOTE / UNIVERSAL PROTOCOL / SAFETY [...] Time: 11:18 AM documented in this encounter [facility] 10-16-2023 Note HNO ID: [id number] Author: RAPHAEL GOLDSMITH MD Service: ? Author Type: Physician Type: Progress Notes Filed: 10/16/2023 11:20 Note Text: 73 year old with prior history of urinary symptoms. Incomplete emptying, intermittency, straining. Had urethral dilation elsewhere which helped. Wished to have another performed due to it helping the symptoms [facility] NOTE / UNIVERSAL PROTOCOL / SAFETY CHECKLIST [...] Date: October 16, 2023 Time: 11:18 AM [facility] 10-16-2023 Nurse Note Actual procedure/procedure scheduled: Yes Performing provider/scheduled provider: Yes Patient was roomed in: Q9- 07 Statement Request Clerk offered:Patient declines Patient arrived in the room [...] with female sounds Sign Out Discussion: Completed Lia Ramirez CT POST PROCEDURE NURSE ASSESSMENT Present along with [...] Education Session: None Instruction Provided To: Patient Wood Dowel Machine Operator Present: no Discipline: Nursing Learning Topic: SURVIVAL SKILLS: Symptom Management Patient Evaluation: Verbalizes understanding: Yes Supplemental Material Given: Written Material Instructed By DAWSON Farr In Department Urology . documented in this encounter [facility] 10-10-2023 Note Subjective Patient ID: Harjit Asencio is a 73 y.o. female who presents for New Patient (Mitral Valve Repair Consult). HPI 73-year-old female with history of atrial fibrillation, diagnosed sometime in 2022, for which she underwent DCCV on 08/28/2023 at [facility]. States that she has also undergone MAZE procedure. We do not have those records available at the time of this visit. She has nonischemic cardiomyopathy with HFrEF and LVEF of 40 to 45% on most recent echocardiogram on 07/21/2023. Echocardiogram on 07/03/23 showed LVEF of 30-35%. She also has severe mitral valve regurgitation and severe tricuspid valve regurgitation. She has followed with the cardiology team at [facility]. Her last appt there was 09/26/23 with cardiology and the CT Surgery team. She was evaluated by CT Surgeon, Dr. Sorto, at [facility] and was deemed high risk for cardiac surgery with recommendations for TMVr/TTVr input. Medical history also significant for urethral stricture and urinary incontinence for which she follows closely with her urology team(urethral stricture s/p dilation (04/2023), S/p sigmoid colectomy with end-to-end anastomosis 1996), HLD, HTN, and anxiety, She was referred to [facility] Cardi[facility] team by her PCP because she no longer wanted to follow up at [facility] due to the long distance from her home and family. Her site foreman, Dr. Henriquez is leaving his current practice and she would like to establish with [facility] cardiology as well. Her primary complaint today is dyspnea with moderate exertion and desire to be off of several of her medications due to previous side effects such as nausea, dizziness, fatigue, abdominal pain, and back pain. Over the past several weeks, a few of her medications were adjusted and all of these symptoms have resolved. She denies dizziness and lightheadedness at this time. No palpitations. However, she does report having an episode of heart flutters and dizziness for which she went to the emergency department for and was sent home without treatment. States that she was not in atrial fibrillation at the time. No history of syncope or collapse. No orthopnea or paroxysmal nocturnal dyspnea. Activity tolerance has slowly declined over the past several months. She has no edema or other signs of fluid overload. She is very anxious and states that she is eager to have her heart valves fixed. She is accompanied by her son-in-law today. Review of Systems See HPI Objective Visit Vitals BP 141/76 (BP Location: Right arm, Patient Position: Sitting, BP Cuff Size: Child) Pulse 93 Temp 36.4 ???C (97.6 ???F) (temporal artery) Resp 16 Physical Exam Constitutional: General: She is not in acute distress. Appearance: Normal appearance. She is not ill-appearing or diaphoretic. HENT: Head: Normocephalic. Mouth/Throat: Mouth: Mucous membranes are moist. Eyes: Extraocular Movements: Extraocular movements intact. Cardiovascular: Rate and Rhythm: Normal rate and regular rhythm. Heart sounds: Murmur heard. Pulmonary: Effort: Pulmonary effort is normal. No respiratory distress. Breath sounds: Normal breath sounds. No wheezing or rales. Abdominal: General: There is no distension. Palpations: Abdomen is soft. Musculoskeletal: General: No swelling. Normal range of motion. Cervical back: Normal range of motion. Skin: General: Skin is warm and dry. Capillary Refill: Capillary refill takes less than 2 seconds. Coloration: Skin is not jaundiced or pale. Neurological: General: No focal deficit present. Mental Status: She is alert and oriented to person, place, and time. Psychiatric: Comments: Anxious, with racing thoughts Assessment/Plan Diagnoses and all orders for this visit: Atrial fibrillation, persistent (CMS/HCC) - Digoxin level; Future HFrEF (heart failure with reduced ejection fraction) (CMS/HCC) - spironolactone (Aldactone) 25 mg tablet; Take 0.5 tablets (12.5 mg) by mouth in the morning and at bedtime. - CBC and differential; Future - Basic metabolic panel; Future - Magnesium; Future - B-type natriuretic peptide; Future - Transthoracic Echo (TTE) Limited; Future - atorvastatin (Lipitor) 40 mg tablet; Take 1 tablet (40 mg) by mouth in the evening. Do not take at bedtime - digoxin (Lanoxin) 125 MCG tablet; Take 0.5 tablets (62.5 mcg) by mouth in the evening. Acute cystitis without hematuria - Urinalysis; Future Dizziness - Vascular US carotid artery duplex bilateral; Future Shortness of breath - Pulmonary function testing Spirometry; Future CAD in [place] artery - Transthoracic Echo (TTE) Limited; Future Assessment and Plan This patient has been under the care and treatment of [facility] cardiology and CT surgery. She was last seen by [facility] CT surgery and cardiology on 09/28/23. Overall, I agree with the assessment and plan as set forth by Dr. Sorto from [facility]. I concur with his assessment that this patient is high risk for ca (more content not included)... [facility] 10-05-2023 Hospital Discharge instructions Patient Education 10/05/2023 21:56:35 Constipation, Adult, Muka-dz-Jyhp Constipation, Adult Constipation is when a person [...] high in fat and sugar, such as: ?Burmese fries. ?Hamburgers. ?Cookies. ?Candy. ?Soda. Drink enough fluid to keep your pee (urine) pale yellow. General instructions Exercise regularly or as told by your doctor. Try to do 150 minutes of exercise each week. Go to the restroom when you feel like you need to poop. Do not hold it in. Take orag-eva-vqjjjlc and prescription medicines only as told by [...] keep your pee (urine) pale yellow. Take hgdy-lrf-zgfmwai and prescription medicines only as told by your doctor. These include any fiber supplements. This information is not intended to replace advice given to you by your health care provider. Make sure you discuss any questions you have with your health care provider. Document Revised: 06/17/2020 Document Reviewed: 06/17/2020 [employer] Patient Education 2022 [employer]. 10/05/2023 21:56:35 Gastroesophageal Reflux Disease, Adult, Eafp-bm-Zmbv Gastroesophageal Reflux Disease, Adult Gastroesophageal reflux (ZUNILDA) [...] powder, vinegar, hot sauces, and BBQ sauce. ?[place] fruit juices and citrus fruits, such as oranges, ronald, and limes. ?Tomato-based foods. These include red sauce, chili, salsa, and pizza with red sauce. ?Fried and fatty foods. These include donuts, italian fries, potato chips, and high-fat dressings. ?High-fat [...] to any changes in your symptoms. Take tjxp-itp-koynqtg and prescription medicines only as told by [...] provider. Document Revised: 02/08/2021 Document Reviewed: 02/08/2021 [employer] Patient Education 2022 [employer]. 10/05/2023 21:56:35 Abdominal Pain, Adult, Quwg-id-Vgvp Abdominal Pain, Adult Many things can cause belly (abdominal) pain. Most times, belly pain is not dangerous. Many cases of belly pain can be watched and treated at home. Sometimes, though, belly pain is serious. Your doctor will try to find the cause of your belly pain. Follow these instructions at home: Medicines Take iiks-ikx-sfejasp and prescription medicines only as told by [...] your belly pain for any changes. Take hwhg-ubw-fdguymq and prescription medicines only as told by [...] provider. Document Revised: 12/09/2019 Document Reviewed: 12/09/2019 [employer] Patient Education 2022 [employer]. Follow Up Care 10/05/2023 17:56:41 With:Taylor HENRIQUEZ Address: [address] [place] [phone] Business (1) When:10/08/2023 20:57:11 With:Peggy Nazario Address: [address] [place] [address]- Business (1) When:Within 3 Day(s) [facility] 10-05-2023 Evaluation + Plan note Extrac deepak from: Title:ED Note Author:Abilio PALMA, Nica Olivares Date:10/05/23 1. Constipation (K59.00: Con stipation, unspecified) [...] day(s), # 28 tab(s), Refills(s) 0, Pharmacy: [facility], 165, cm, 10/05/23 18:07:00 EST, Height/Length Dosing, 50.3, kg, 10/05/23 18:07:00 EST, Weight Dosing lidocaine topical, 200 mg, 10 mL, Soln-Oral, Oral, Once, Stop date 10/05/23 20:48:00 EST, STAT, Start date 10/05/23 20:48:00 EST ECG 12 Lead Adult Future Appointments Appointment Date:01/24/2024 02:30:00 PM Scheduled Provider:Micheline BROOKS MD Location:[facility] Appointment Type:URO Office Visit Future Scheduled Tests Laboratory* Basic Metabolic Panel 07/12/23 * Digoxin Level 07/12/23 [facility]02-19-2024 Miscellaneous Notes* Telephone Encounter - Junito Mendes - 10/02/2023 9:35 AM EST October 02, 2023 Patient Contact Number: [phone] Patient last seen within the last year: Yes Date of last office visit: 09/26/2023 Reason For Call: Test Results; pt requesting to go over 09/26 labs Physician: Alea Harley MD Patient was informed that non-urgent calls may be returned within the next three business days. Yes Junito Mendes [facility] Nurse Note* Chrissy Roberts OCCA - 09/26/2023 2:28 PM EST Post Void Residual done on patient with 45 cc residual volume remaining. notified. CARISSA Ferrell [facility]24 NoteHNO ID: [id number] Author: RAPHAEL GOLDSMITH MD Service: ? Author Type: Physician Type: Progress Notes Filed: 09/26/2023 16:38 Note Text: [facility]VIC [facility]IC[facility] [...] Female Pelvic Medicine and Reconstructive Surgery [facility] History of Present illness Narrative* Raphael Goldsmith MD - 09/26/2023 2:15 PM EST [facility] [...] Medicine and Reconstructive Surgery [facility] Instructions* Patient Instructions* Ana Rivas APRN.CNP [...] with labs and EKG [facility]24 NoteHNO ID: [id number] Author: ANA RIVAS APRN.CNP Service: ? Author Type: Nurse Practitioner Type: Progress Notes Filed: 09/26/2023 10:41 Note Text: [facility] Department of Cardiovascular Medicine SECTION OF CLINICAL CARDIOLOGY OUTPATIENT VISIT DATE September 26, 2023 OUTPATIENT VISIT TYPE ESTABLISHED PRIMARY CARE PHYSICIAN: Peggy Nazario MD [address] [place] [address] REFERRING PHYSICIAN: Dr. Alea Harley [address] [facility] [id number] CHIEF COMPLAINT: Established Patient HISTORY OF PRESENT [...] (0.125 mg) tabl (more content not included)... [facility]02-13-2024 History of Present illness Narrative* Ana Rivas APRN.CONTRACT ADMINISTRATIVE ASSISTANT - 09/26/2023 8:51 AM EST Images from the original note were not included. [facility] Department of Cardiovascular Medicine SECTION OF CLINICAL CARDIOLOGY OUTPATIENT VISIT DATE September 26, 2023 OUTPATIENT VISIT TYPE ESTABLISHED PRIMARY CARE PHYSICIAN: Peggy Nazario MD [address] [place] [address] REFERRING PHYSICIAN: Dr. Alea Harley [address] [facility] [address] CHIEF COMPLAINT: Established Patient HISTORY OF PRESENT [...] better. Will review with Dr. Sorto in [facility]. He will be seeing her [...] ECG Confirmed by fellow NANCY MCMAHON, ZIGGY ([id number]) on 09/04/2023 1:50:09 PM Confirmed by MD DEJUAN, PhD, KHUSHI ([id number]) on 09/11/2023 1:23:[address] Result Conclusion CTA CHEST (GATED) W IVCON Exam End: 08/23/2023 7:47 AM (Final result) Impression: IMPRESSION: Dilated left ventricle, biatrial enlargement. Mitral valve is noncalcified. Normal caliber thoracic aorta. 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 Transcribe Date/Time: Aug 23 2023 11:20A [...] a plan of care. documented [facility] NotePatient Outreach (ISHMAEL) HARJIT ASENCIO I ([id number]) 1950 F Date Time Provider Department 09/26/23 RAPHAEL GOLDSMITH During your visit today, we [...] for genitourinary condition [Z13.89] Order(s):URINALYSIS, REFLEX MICROSCOPIC [[id number]] Order #: [id number]. #:[id number] Prescriptions as of 09/29/2023 - pantoprazole DR [...] malnutrition (HCC) [E43] 08/30/2023 Encounter Status:Closed by KanariUSER on 09/29/23[facility] Miscellaneous Notes* Telephone Encounter - Carmina Reyna RN - 09/21/2023 4:[address] Harley would like patient to come in and be seen to go over this in greater detail. Work on setting her up with an ADULT CARE MANAGER and Dr. Harley would like to be in for the appointment. Next Monday. Carmina Reyna RN * Telephone Encounter - Junito Mendes - 09/21/2023 3:33 PM EST September 21, 2023 Patient Contact Number: [phone] Patient last seen within the last year: [...] days. Yes Junito Mendes documented in [facility] History of Present illness Narrative* Farrukh [...] Flowsheet Row Patient Outreach from 09/18/[address] [facility] with Loida Nathan LPN Discharge Information ED or Hospital Discharge? ED Patient has been contacted within 1 week of being seen in the ED Yes Discharge Date 09/17/23 [facility]charge [facility] [DX: ACid reflux, Medication reaction] Discharged To: [...] for ER follow up. Pt seen at [facility] on 09/17/23 due to dizziness and shaking. Hospitalrecords were reviewed. Pt had an elevated BP. She believes the dizziness and shaking was caused by the valsartan. She had the same issues when she was on it before, was advised to cut it in half. Shestates she has been feeling better since she stopped it. Pt would like a referral to a new site foreman/surgeon. She states she has been told that [...] [facility] Discussed some risks of surgery. - Ambulatory referral to Cardiothoracic Surgery; Future Entered by _El_, acting as scribe for Dr. Lr_. Signature _Heath MCMAHON_ Date _09/18/2023_. The documentation recorded by the scribe accurately reflects the service(s) I personally performed and the decisions I made. documented in this encounterThe Rehabilitation [id number] Evaluation + Plan note Extracted from: Title:ED [...] Date:01/24/2024 02:30:00 PM Scheduled Provider:Micheline BROOKS MD Location:[facility] Shira Appointment Type:URO Office Visit Future Scheduled Tests Laboratory* Basic Metabolic Panel 07/12/23 * Digoxin Level 07/12/23 [facility]02-04-2024 Hospital Discharge instructions Patient Education 09/17/2023 [...] medicines that you are allergic to. Take wbtc-xns-zirzzoe and prescription medicines only as told by your health care provider. If you were given medicines to treat your allergic reaction, do not drive until your health care provider tells you it is safe. If you have hives or a rash: ?Use an pbiz-bmg-fbxhtio antihistamine as told by your health care [...] provider. Document Revised: 01/10/2022 Document Reviewed: 01/10/2022 [employer] Patient Education 2022 [employer]. 09/17/2023 06:16:25 Heartburn Heartburn Heartburn is a [...] powder, vinegar, hot sauces, and barbecue sauce. ?[place] fruit juices and citrus fruits, such as oranges, ronald, and limes. ?Tomato-based foods, such as red sauce, chili, salsa, and pizza with red sauce. ?Fried and fatty foods, such as donuts, italian fries, potato chips, and high-fat dressings. ?High-fat [...] ask your health care provider. Medicines Take dbxs-mhs-pvrvzny and prescription medicines only as told by [...] told by your health care provider. Take ulpx-ggp-qfxeamf and prescription medicines only as told by [...] provider. Document Revised: 02/03/2021 Document Reviewed: 02/03/2021 [employer] Patient Education 2022 [employer]. Follow Up Care 09/17/2023 04:56:21 With:Peggy Nazario Address: [address] [place] [address]- Business (1) When:Within 3 Day(s) [facility]02-04-2024 Miscellaneous Notes* Telephone Encounter - Carmina [...] (valsartan) again. Carmina Mcmahan APRN.CNP HVTI SOULEYMANE Rotary Shear Operator 09/17/2023 6:29 AM documented in this encounterMedina Hospital02-04-2024 Miscellaneous Notes* Telephone Encounter - Carmina Mcmahan APRN.CNP - 09/17/2023 4:21 AM EST [facility] Contact Center Inbound Phone Encounter DATE of SERVICE: 09/17/2023 TIME of SERVICE: 4:21 AM Status: Urgent Service/Provider: Clinical Cardiology Alea Harley MD Reason for call: Medication Issue/Question Contact information: [phone] Resolution: Reinforced education and [facility] Comments: Patient calling after waking up with [...] to try. Carmina Mcmahan APRN.CNP HVTI SOULEYMANE Rotary Shear Operator Date of Resolution: 09/17/2023 Time of Resolution 4:21 AM documented in this encounterMedina Hospital02-02-2024 Telephone encounter Note * Telephone Encounter - Rupal Lemus - 09/15/2023 1:24 PM EST Pt calls to check status of this, wants this done as quickly as possible, states that she will haveto cut pills in half to make it through the weekend and missed one last night. [facility] [id number] Miscellaneous Notes* Telephone Encounter - Rupal Lemus [...] [facility] * Telephone Encounter - Farrukh Mcmahan MA - 09/13/2023 11:06 AM EST Rx signed yesterday * Telephone Encounter - Candis Amaro - 09/13/2023 11:01 AM EST Pt calls for refill of lorazepam is almost out will be out completely on monday documented in this encounterThe Rehabilitation [id number] Telephone encounter Note* Telephone Encounter - Candis Amaro - 09/15/2023 9:49 AM EST Pt calls to ask [facility] will be out on Monday The Rehabilitation [id number] Telephone encounter Note* Telephone Encounter - Candis Amaro - 09/13/2023 11:25 AM EST Pt said she [facility] The Rehabilitation [id number] Telephone encounter Note* Telephone Encounter - Farrukh Mcmahan MA - 09/13/2023 11:06 AM EST Rx signed yesterday The Rehabilitation [id number] Telephone encounter Note* Telephone Encounter - Candis Amaro - 09/13/2023 11:01 AM EST Pt calls for refill of lorazepam is almost out will be out completely on monday The Rehabilitation [id number] Evaluation + Plan noteExtracted from: Title:ED Note [...] Date:01/24/2024 02:30:00 PM Scheduled Provider:Micheline BROOKS MD Location:[facility] Appointment Type:URO Office Visit Future Scheduled Tests Laboratory* Basic Metabolic Panel 07/12/23 * Digoxin Level 07/12/23 [facility]01-30-2024 Hospital Discharge instructions Patient Education 09/12/2023 [...] as meditation or yoga. General instructions Take fhqb-qsg-riiltqc and prescription medicines only as told by [...] provider. Document Revised: 05/20/2022 Document Reviewed: 05/20/2022 [employer] Patient Education 2022 [employer] 09/12/2023 06:47:40 Gastroesophageal Reflux Disease, Adult [...] powder, vinegar, hot sauces, and barbecue sauce. ?[place] fruit juices and citrus fruits, such as oranges, ronald, and limes. ?Tomato-based foods, such as red sauce, chili, salsa, and pizza with red sauce. ?Fried and fatty foods, such as donuts, italian fries, potato chips, and high-fat dressings. ?High-fat [...] to any changes in your symptoms. Take jnxf-imq-ggvxjeg and prescription medicines only as told by [...] you have new or worsening symptoms. Take ynsg-nql-naknksz and prescription medicines only as told by [...] provider. Document Revised: 02/08/2021 Document Reviewed: 02/08/2021 [employer] Patient Education 2022 [employer]. Follow Up Care 09/12/2023 04:04:55 With:Peggy Nazario Address: [place] [address] Business (1) When:Within 3 Day(s) [facility]01-18-2024 NoteHNO ID: [id number] Author: CAN RIBERA RPh Service: Pharmacy Author [...] RPh August 31, 2023 2:01 PM Pager: [phone] Medication List START taking these medications polyethylene [...] Your Medications These medications were sent to [facility] [address] [place] [address] Hours: Monday-Monday 7am-8pm, Monday, Monday and Holidays 9am-5pm apixaban 5 mg tab(s) atorvastatin 40 mg tablet carvedilol 12.5 mg tablet digoxin 125 mcg (0.125 mg) tablet polyethylene glycol 3350 17 gram/dose powder spironolactone 25 mg tablet valsartan 80 mg tablet[facility]24 NoteHNO ID: [id number] Author: MILAGRO RINALDI ? Service: Pharmacy Author Type: Job Printer Type: Plan of Care Filed: 08/31/2023 15:48 Note Text: PHARMACY BEDSIDE DELIVERY SERVICE Patient Name: Harjit Asencio The marked outpatient medications were Filled at: [facility] and delivered to the patient's bedside [...] known as: ZOFRAN ODT Milagro Rinaldi PAGER: [phone] August 31, 2023 1:42 [facility]01-18-2024 NoteHNO ID: [id number] Author: MILAGRO RINALDI, Delia Service: Pharmacy Author Type: Job Printer Type: Plan of Care Filed: 08/31/2023 11:37 [...] 1 Any questions, [place] [phone]. Thank you (Prices may vary at different pharmacy locations, this is the cost at [facility]01-17-2024 NoteHNO ID: [id number] Author: CARLITOS MIDDLETON MD Service: Cardiovascular Medicine [...] Drain Duration Indwelling Urinary Catheter 08/28/23 1910 [facility] Robles 14 Fr 1 day Intake [...] 168 hours. BMP: Recent Labs 08/29/23 0908/28/23 0508/27/23 0839 08/26/23 0702 08/25/23 1330 08/25/23 [...] 1.11* 0.98* 0.97* CHEM: Recent Labs 08/29/23 0908/28/23 0521 08/27/23 0839 0 (more content not included)...[facility]01-16-2024 Note HNO ID: [id number] Author: KHUSHBOO SANCHEZ RT(R) Service: Radiology Author [...] BY: RT Maisha(R) August 29, 2023 2:45 [facility]01-16-2024 NoteHNO ID: [id number] Author: STEPHANIE PALACIOS MD Service: Urology Author [...] questions. Stephanie Palacios MD Resident PGY-2 Urology [facility] Urologic and Kidney [place] [facility] Pager [phone] After hours and on weekend construction trades teacher pager [phone] Medical Trihealth Rehabilitation [facility]01-16-2024 NoteHNO ID: [id number] Author: CARLITOS MIDDLETON MD Service: Cardiovascular Medicine Author Type: Physician Type: Progress Notes Filed: 08/29/2023 10:42 Note Text: [facility] CARDIOVASCULAR MEDICINE PROGRESS NOTE NAME: Harjit Asencio SERVICE DATE: 08/29/2023 Interval History and Plan for the Day: No acute events overnight. Robles catheter (14 italian) was inserted yesterday because BS showed 305 [...] with ciprofloxacin > Urology: - robles 14 italian - pyridium 200 mg TID for 6 [...] Drain Duration Indwelling Urinary Catheter 08/28/23 1910 [facility] Robles 14 Fr <1 day Intake / Output Intake/Output Summary (Last 24 hours) at 08/29/2023 0803 Last data filed at 08/29/2023 0607 Gross per 24 hour Intake 50 ml Output 925 ml Net -875 ml Work Up Imaging: US KIDNEY/BLADDER Final Result IMPRESSION: NO HYDRONEPHROSIS. 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 Transcribe Date/Time: Aug 25 2023 10:35A [...] PBNP 3,265* IMAGING: T (more content not included)...[facility]01-15-2024 NoteHNO ID: [id number] Author: YADIEL MOTLEY MD Service: Cardiovascular Medicine [...] anticoagulation for at least four weeks following yarsani of sinus rhythm. Yadiel Motley MD Cardiovascular Medicine Fellow [facility] Thor[facility] NoteHNO ID: [id number] Author: CAN RIBERA [facility] Service: Pharmacy Author Type: Pharmacist Type: Plan of Care Filed: 08/28/2023 13:36 Note Text: PHARMACY MEDICATION REVIEW Patient Name: Harjit Asencio : 1950 The following medications were updated within the ENVIRONMENTAL INTERN medication list: Medications ADDED to ENVIRONMENTAL INTERN medication list Lorazepam 1mg tablets Take 1 tablet by mouth every 6 hours as needed for anxiety. Medications CHANGED on ENVIRONMENTAL INTERN medication list Carvedilol 3.125mg tablets Added to directions: take twice daily with meals. Medications REMOVED from ENVIRONMENTAL INTERN medication list Ativan 0.5mg and lorazepam 0.5mg [...] medication history: Yes Medication history completed by: Stucco Laborer: Becca Coleman Source of history: Patient: Reliability of source: Appears reliable, clearly identified: Medication name, Medication frequency, and Indications, Pharmacy records: [facility], and [facility] records Medication nonadherence identified: Unable to assess Reconciliation completed: Yes Completed by: Can Ribera [facility] All ENVIRONMENTAL INTERN medications addressed by LIP Patient interested in Bedside Delivery Services or using CC OP Pharmacy at discharge? Yes. Discharge Pharmacy Updated [id number] [place] [address] - [address] [facility] [phone] [facility] [address] [address] [place] [address] - [address] - [phone] e- [facility]/pharmacy #[id number] [place] [address] - [address] - [phone] [place] [address] [facility] Patient not interested in [facility]'s home delivery service at this [...] 8 HOURS Facility-Administered Medications: None Becca Coleman [address] [place], [place] 1211701-15-2024 NoteHNO ID: [id number] Author: CAN RIBERA RPh Service: Pharmacy Author Type: Pharmacist Type: Plan of Care Filed: 08/28/2023 13:27 Note Text: [facility] Home Delivery Program Patient Name: Harjit Asencio Admission Date: 08/24/2023 Date of Contact: August 28, 2023 Would patient like to be enrolled into [facility] Home Delivery program: No Becca Coleman August 28, 2023 1:07 [facility]01-15-2024 NoteHNO ID: [id number] Author: DUKE MORELOS RN Service: Care Management [...] 28, 2023 TIME: 10:53 AM PAGER/CONTACT #: [phone]01-15-2024 NoteHNO ID: [id number] Author: BECCA COLEMAN, Delia Service: Pharmacy Author Type: Job Printer Type: Plan of Care Filed: 08/28/2023 09:37 [...] 3 Any questions, [place] [phone]. Thank you (Prices may vary at different pharmacy locations, this is the cost at [facility]01-15-2024 NoteHNO ID: [id number] Author: CARLITOS MIDDLETON MD Service: Cardiovascular Medicine [...] US KIDNEY/BLADDER Final Result IMPRESSION: NO HYDRONEPHROSIS. 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man: LILIANA Transcribe Date/Time: Aug 25 2023 10:35A [...] 0.98* 0.97* 1.10 CHEM: Recent Labs 08/28/2352008/27/2383808/26/23 0708/25/2363508/24/23211208/23/23 1144 ALB 3.5* 3.6* 3.5* 3.4* 3.8* 4.4 TPROT 5.9* 5.8* 5.7* 5.7* 6.1* 6.8 CA 9.5 9.1 8.9 9.0 9.2 9.8 MG -- -- -- 2.2 -- -- HEPATIC: Recent Labs 08/28/2352008/27/2383808/26/23 0708/25/23 0608/24/23211208/23/23 1144 ALKPHOS 52 59 60 48 [...] presents for pre-operative optimization (more content not included)...[facility]01-14-2024 NoteHNO ID: [id number] Author: BECCA COLEMAN, Delia Service: Pharmacy Author Type: Job Printer Type: Plan of Care Filed: 08/27/2023 12:07 Note Text: Insurance investigation completed Patient has active prescription insurance: Yes - Patient's insurance is in-network with [facility] Insurance loaded into [employer]: Yes Test claim was completed to verify insurance is active: Successful Any questions, please contact your medication access services assistant. Pager #: [phone] Medical Trihealth Rehabilitation Hospital01-14-2024 NoteHNO ID: [id number] Author: AMINA PETERSEN MD Service: Cardiovascular Medicine [...] US KIDNEY/BLADDER Final Result IMPRESSION: NO HYDRONEPHROSIS. 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man: LILIANA Transcribe Date/Time: Aug 25 2023 10:35A Dictated by : NANCY YOUNGBLOOD MD This examination was interpreted and the report reviewed and electronically signed by: NANCY YOUNGBLOOD MD on Aug 25 2023 10:38AM EST Labs: CBC: Labs 08/26/2370108/25/2363508/24/23211208/23/23 1144 WBC 7.27 6.38 7.40 [...] in the last 168 hours. BMP: Labs 08/26/2370108/25/23 1330 08/25/2363508/24/23211208/23/23 1144 08/23/23 0813 [...] -- 1.02* 1.11* 0.98* 0.97* 1.10 CHEM: Labs 08/26/2370108/25/2363508/24/23211208/23/23 1144 ALB 3.5* 3.4* 3.8* 4.4 TPROT 5.7* 5.7* 6.1* 6.8 CA 8.9 9.0 9.2 9.8 MG -- 2.2 -- -- HEPATIC: Labs 08/26/2370108/25/2363508/24/23211208/23/23 1144 ALKPHOS 60 48 61 [...] in the setting of (more content not included)...[facility]01-13-2024 NoteHNO ID: [id number] Author: AMINA PETERSEN MD Service: Cardiovascular Medicine [...] US KIDNEY/BLADDER Final Result IMPRESSION: NO HYDRONEPHROSIS. 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man: LILIANA Transcribe Date/Time: Aug 25 2023 10:35A [...] hours. BMP: Recent Labs 08/26/23 0708/25/23 1330 08/25/23 0636 08/24/23211208/23/23 1144 08/23/23 [...] function: - Stop l (more content not included)...[facility]01-13-2024 History of Past illness Narrative* Problem Noted Date Diagnosed Date Resolved Date Acute on chronic systolic co ngestive heart failure 08/26/2023 08/27/2023 documented as of this encounter (statuses as of 09/17/2023) [facility]01-13-2024 History of Past illness Narrative* Problem Noted Date Diagnosed Date Resolved Date Acute on chronic systolic co ngestive heart failure 08/26/2023 08/27/2023 documented as of this encounter (statuses as of 09/21/2023) [facility]01-13-20[facility] History of Past illness Narrative* Problem Noted Date Diagnosed Date Resolved Date Acute on chronic systolic co ngestive heart failure 08/26/2023 08/27/2023 documented as of this encounter (statuses as of 09/26/2023) [facility]01-13-20[facility] History of Past illness Narrative* Problem Noted Date Diagnosed Date Resolved Date Acute on chronic systolic co ngestive heart failure 08/26/2023 08/27/2023 documented as of this encounter (statuses as of 09/26/2023) [facility]01-13-[facility] History of Past illness Narrative* Problem Noted Date Diagnosed Date Resolved Date Acute on chronic systolic co ngestive heart failure 08/26/2023 08/27/2023 documented as of this encounter (statuses as of 09/29/2023) [facility] History of Past illness Narrative* Problem Noted Date Diagnosed Date Resolved Date Acute on chronic systolic co ngestive heart failure 08/26/2023 08/27/2023 documented as of this encounter (statuses as of 10/02/2023) [facility] History of Past illness Narrative* Problem Noted Date Diagnosed Date Resolved Date Acute on chronic systolic co ngestive heart failure 08/26/2023 08/27/2023 documented as of this encounter (statuses as of 10/16/2023) [facility] History of Past illness Narrative* Problem Noted Date Diagnosed Date Resolved Date Acute on chronic systolic co ngestive heart failure 08/26/2023 08/27/2023 documented as of this encounter (statuses as of 10/17/2023) [facility]01-13-[facility] History of Past illness Narrative* Problem Noted Date Diagnosed Date Resolved Date Acute on chronic systolic co ngestive heart failure 08/26/2023 08/27/2023 documented as of this encounter (statuses as of 10/20/2023) [facility]01-13-2024 NoteHNO ID: [id number] Author: NOTE, INTERFACE, ? Service: ? Author Type: ? Type: Progress Notes Filed: 08/26/2023 02:15 Note Text: Epic Scheduled Downtime: 08/26/2023 1:00:00 AM to 08/26/2023 2:04:22 [facility]01-12-2024 NoteHNO ID: [id number] Author: DUKE MORELOS RN Service: Care Management [...] TIME: 2:45 PM CONTACT #: [phone]01-[facility]-2024 Note HNO ID: [id number] Author: MICHELINE SORTO MD Service: ? Author Type: Physician Type: Progress Notes Filed: 08/24/2023 08:19 Note Text: Heart, Vascular and Thoracic [place] DEPARTMENT OF CARDIAC SURGERY OUTPATIENT VISIT PCP: Peggy [place] [address] [place] [address] Referring Physician: Micheline Sorto [address] [facility] [address] Patient Type: New Visit to Determine Surgery: [...] valve is noncalcified. Normal caliber thoracic aorta. 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 Transcribe Date/Time: Aug 23 2023 11:20A [...] physician via electronic medical record Micheline Sorto [facility]01-10-2024 NoteHNO ID: [id number] Author: ALEA HARLEY MD Service: ? Author Type: Physician Type: Progress Notes Filed: 08/23/2023 12:58 Note Text: Heart and Vascular [place] [facility] Department of Cardiovascular Medicine SECTION OF CLINICAL CARDIOLOGY OUTPATIENT VISIT DATE August 23, 2023 OUTPATIENT VISIT TYPE NEW PRIMARY CARE PHYSICIAN: Peggy Nazario MD [address] [place] [address] REFERRING PHYSICIAN: Micheline oSrto [address] [facility] [address] CHIEF COMPLAINT: Mitral regurgitation. HISTORY OF PRESENT [...] emptying her bladder. When seen in the [facility] ER, she was found to be in [...] She is being referred by her private site foreman, Dr.D. Henriquez for consideration of MVr. As [...] is a 73 year old female from [place], [place] here today for cardiovascular evaluation related [...] to take it. Late (more content not included)...[facility]01-10-2024 NoteHNO ID: [id number] Author: MADELINE SCALES RN Service: Nursing Author [...] Asencio DATE: August 23, 2023 TIME: 7:21 [facility]01-10-2024 NoteHNO ID: [id number] Author: ANDREW SERRANO RT(R) Service: Radiology Author [...] BY: RT Felicitas(R) August 23, 2023 7:35 [facility]12-11-2023 Note [id number]#[id number]23 Miscellaneous Notes* Telephone Encounter - Cesar Nunn - 07/24/2023 10:22 AM EST IN * Telephone Encounter - Katie Nicholson - 07/24/2023 10:08 AM EST Please register insurance Thank you! documented in [facility] Evaluation + Plan note Extracted from: Title:Procedure Note Heart & Vascular Author:LEYDA KELLER MD, Taylor Patino Date:07/21/23 Ordered: benzocaine/butamben/tetracaine topical, 3 spray(s), [place]-Top, Topical, q2min PRN Other (see comment), Routine, [...] Oxygen Therapy Saline Lock Insert Suctioning HAROON ([facility]) Vital Signs Future Appointments Appointment Date:01/24/2024 02:30:00 PM Scheduled Provider:Micheline BROOKS MD Location:[facility] Appointment Type:URO Office Visit Future Scheduled Tests Laboratory* Basic Metabolic Panel 07/12/23 * Digoxin Level 07/12/23 [facility]12-08-2023 Hospital Discharge instructions Patient Education 07/21/2023 08:44:29 CV - Post-Transesophageal Echocardiogram (Custom) [place] POST-TRANSESOPHAGEAL ECHOCARDIOGRAM AFTER THE PROCEDURE: Diet: [...] appointment Seek Medical Care if: Notify your site foreman should you have any difficulty swallowing or coughing up blood. In the event you are unable to reach your site foreman, please call [facility] at [phone] and the double end tenoner operator will assist you. Follow Up Care 07/20/2023 11:03:45 With:Taylor HENRIQUEZ Address: [address] [place] [phone] Business (1) When: Unknown Comments:-After your appointment with [facility]12-08-2023 Evaluation + Plan note Future Appointments Appointment Date:07/21/2023 08:00:00 AM Scheduled Provider: Location[facility] Appointment Type:[facility] () Appointment Date:07/21/2023 08:00:00 AM Scheduled Provider: Location:.[facility] Appointment Type:CV Echo () Appointment Date:01/24/2024 02:30:00 PM Scheduled Provider:Micheline BROOKS MD [facility] [facility] Appointment Type:URO Office Visit Future Scheduled Tests Laboratory* Basic Metabolic Panel 07/12/23 * Digoxin Level 07/12/23 Radiology* Echo Transesophageal 2D 07/21/23 [facility]11-24-2023 Hospital Discharge instructions Patient Education 07/07/2023 [...] health careprovider. Avoid caffeine, alcohol, and certain nali-akb-eopiuxw cold medicines. These may make you feel worse. Ask your pharmacist which medicines to avoid. General instructions Take wppn-qxo-vxuryut and prescription medicines only as told by [...] Depression Association of [place] (ADAA): www.adaa.org National Holmes [employer] Mental Illness (TAYLOR): www.taylor.org Contact a [...] department or: Call your local emergency services (890 in the [place] Call a suicide crisis helpline, such as the National Suicide Prevention Lifeline at or 350 in the [place] This is open 24 hours a day in the [place] Text the Crisis Text Line at 988068 (in the [place] Summary Taking steps to [...] provider. Document Revised: 02/23/2022 Document Reviewed: 11/21/2021 [employer] Patient Education 2022 [employer] 07/07/2023 13:04:14 Atrial Fibrillation Atrial Fibrillation [...] electrical signals of the heart. An ambulatory desk monitor to record your heart's activity for [...] provider. Document Revised: 01/22/2020 Document Reviewed: 01/22/2020 [employer] Patient Education 2022 [employer]. Follow Up Care 07/07/2023 08:56:48 With:Taylor HENRIQUEZ Address: [address] [place] [phone] Business (1) When:07/10/2023 12:45:48 With:Peggy Nazario Address: [address] [place] [address]- Business (1) When:07/10/2023 12:45:46 [facility]11-24-2023 [facility] HospitalComment on above:Result Comment: Electronically Signed By: Nahid SERRATO MD\.br\Date and Time Signed: 07/07/23 12:07 [id number] Evaluation + Plan noteExtracted from: Title:APSO Note Author:Nahid SERRATO MD Date:09/05/22 73-year-old female with history of ureteral stricture with previous dilations, anxiety disorder presented with complaints of urinary hesitancy, constipation, cough and shortness of breath and was [facility] with acute paroxysmal atrial fibrillation with [...] IV Cardizem drip. Continue on Coreg, digoxin. Carbon Lamp Cleaner debating on starting patient on amiodarone. Eliquis to start in 4 days after cardiac catheterization. Ordered: [facility] Care/Day Moderate 35 Minutes 28139 2. Acute systolic congestive heart failure (I50.21: Acute systolic (congestive) heart failure) Acute systolic congestive heart failure present on admission. Seen by site foreman and underwent cardiac catheterization that showed mild coronary artery disease. Also shows severe mitral regurgitation and tricuspid regurgitation with ejection fraction of 30 to 35%. Continue on aspirin, Coreg, losartan and Lasix. Ordered: [facility] Care/Day Moderate 35 Minutes 06145 3. Severe mitral regurgitation (I34.0: Nonrheumatic mitral (valve) insufficiency) As seen on cardiac catheterization. Patient will follow-up with site foreman for HAROON and then valvular repair. Carbon Lamp Cleaner also considering transferring patient to or [facility]. Ordered: [facility] Care/Day Moderate 35 Minutes 66960 4. Elevated troponin (R79.89: Other specified abnormal findings of blood chemistry) Secondary to type II non-ST segment elevation myocardial infarction from above and mild coronary artery disease.. Seen by site foreman and underwent cardiac catheterization that showed mild coronary artery disease. Continue on aspirin, Lipitor, and Coreg. Ordered: [facility] Care/Day Moderate 35 Minutes 18188 5. Mild coronary artery disease (I25.10: Atherosclerotic heart disease of [place] coronary artery without angina pectoris) As seen on cardiac catheterization on 07/05/2023. Continue on Lipitor and aspirin. Ordered: [facility] Care/Day Moderate 35 Minutes 91034 6. anxiety (F41.9: Anxiety disorder, unspecified) Increase [...] deep vein thrombosis (DVT) prophylaxis (Z79.899: Other long term care pharmacist (current) drug therapy) SCDs. Eliquis to resume in 4 days. Disposition: Home soon today if heart rate is under good control with plans to follow-up with site foreman and urologist as outpatient. However if heart rate is still elevated then we will call [facility] or [facility] to see if we can transfer patient for valve repair/replacement. I discussed the diagnosis and plan of care with the patient at the bedside. Moderate level of MDM based on addressing above issues. This documentation was transcribed using voice recognition software. Several attempts were made to ensure accuracy. However inadvertent computerized actuarial analyst errors may be present. Nahid Serrato. Hospitalist. [...] to transfer the patient directly to the [facility] or [facility] given her logistic challenges with getting a [...] artery disease (I25.10: Atherosclerotic heart disease of [place] coronary artery without angina pectoris) 6. Pleural effusion (J90: Pleural effusion, not elsewhere classified) 7. Urinary hesitancy (R39.11: Hesitancy of micturition) 8. Other urethral stricture, female (N35.82: Other urethral stricture, female) 9. Urinary retention (R33.9: Retention of urine, unspecified) 10. Constipation (K59.00: Constipation, unspecified) 11. On deep vein thrombosis (DVT) prophylaxis (Z79.899: Other long term care pharmacist (current) drug therapy) Orders: acetaminophen, 650 mg [...] shortness of breath and was admitted to [facility] with acute paroxysmal atrial fibrillation with [...] date 07/06/23 9:00:00 EST, 07/05/23 11:13:00 EST [facility] Care/Day Moderate 35 Minutes 06718 2. Acute systolic congestive heart failure (I50.21: Acute systolic (congestive) heart failure) Acute systolic congestive heart failure present on admission. Seen by site foreman. She is status post cardiac catheterization that showed mild coronary artery disease. Also showed severe mitral regurgitation and tricuspid regurgitation.. Ejection fraction of 30 to 35%. Continue on aspirin, Coreg, losartan, Lasix. Ordered: [facility] Care/Day Moderate 35 Minutes [id number] 3. Severe mitral regurgitation (I34.0: Nonrheumatic mitral (valve) insufficiency) Severe mitral regurgitation seen on cardiac catheterization. Follow-up with site foreman as outpatient for HAROON and then valvular repair. Ordered: [facility] Care/Day Moderate 35 Minutes 61382 4. Elevated troponin (R79.89: Other specified abnormal findings of blood chemistry) Secondary to type II non-ST segment elevation myocardial infarction from above and mild coronary artery disease.. Seen by site foreman and underwent cardiac catheterization that showed mild coronary artery disease. Continue on aspirin, Lipitor, and Coreg. Ordered: furosemide, 40 mg = 1 tab(s), Tab, Oral, Daily, Routine, Start date 07/06/23 9:00:00 EST, 07/05/23 11:13:00 EST [facility] Care/Day Moderate 35 Minutes [id number] 5. Mild coronary artery disease (I25.10: Atherosclerotic heart disease of [place] coronary artery without angina pectoris) As seen on cardiac catheterization on 07/06/2023. Continue on Lipitor and aspirin. Ordered: [facility] Care/Day Moderate 35 Minutes 40216 6. Pleural effusion (J90: Pleural effusion, not [...] deep vein thrombosis (DVT) prophylaxis (Z79.899: Other detention (current) drug therapy) Lovenox. Disposition: Home in a.m. to follow-up with site foreman and urologist. I discussed the diagnosis and plan of care with the patient at the bedside. Moderate level of MDM based on addressing above issues. This documentation was transcribed using voice recognition software. Several attempts were made to ensure accuracy. However inadvertent computerized actuarial analyst errors may be present. Nahid Serrato. Hospitalist. Orders: Basic Metabolic Panel Basic Metabolic Panel Referral to [facility] Extracted from: Title:APSO Note Author:Nahid SERRATO MD Date:09/03/22 73-year-old female with history of ureteral stricture with previous dilations, anxiety disorder presented with complaints of urinary hesitancy, constipation, cough and shortness of breath and was admitted to [facility] with acute paroxysmal atrial fibrillation with [...] BID, # 60 tab(s), Refills(s) 0, Pharmacy: [facility] #[id number], 165, cm, 07/02/23 21:30:00 EST, Height/Length Dosing, 55.7, kg, 07/02/23 21:30:00 EST, Weight Dosing Echo Transthoracic Complete [facility] Care/Day Moderate 35 Minutes 47767 2. Acute systolic congestive heart failure (I50.21: Acute systolic (congestive) heart failure) Acute systolic congestive heart failure present on admission. Cardiology is following. Ejection fraction of 30 to 35%. Cardiology is planning on cardiac catheterization for ischemic work-up in AM. Meanwhile continue on aspirin, Coreg, losartan. We will verify with site foreman about Lasix. Ordered: [facility] Care/Day Moderate 35 Minutes 01934 3. Elevated troponin (R79.89: Other specified abnormal findings of blood chemistry) Secondary to type II non-ST segment elevation myocardial infarction from above. Echocardiogram shows ejection fraction of 30 to 35%. Carbon Lamp Cleaner following with plans for cardiac catheterization in AM. Meanwhile continue on aspirin and Coreg. Ordered: Echo Transthoracic Complete [facility] Care/Day Moderate 35 Minutes 44714 4. Pleural effusion (J90: Pleural effusion, not elsewhere classified) Small pleural effusion secondary to acute systolic congestive heart failure. Supportive care. Lasix as needed. Ordered: [facility] Care/Day Moderate 35 Minutes 63926 5. Urinary hesitancy (R39.11: Hesitancy of micturition) Secondary to urethral stricture and urinary retention. She is status post Robles catheter placement. Urology consult reviewed by me. I appreciate and agreed recommendations. Patient will discharge with Robles catheter and leg bag to follow-up with urologist as outpatient. Ordered: [facility] Care/Day Moderate 35 Minutes 77861 6. Other urethral stricture, female (N35.82: Other [...] Daily, NOW, Start date 07/03/23 11:16:00 EST [facility] Care/Day Moderate 35 Minutes 14829 9. On deep vein thrombosis (DVT) prophylaxis (Z79.899: Other long term care pharmacist (current) drug therapy) Lovenox. Disposition: Pending cardiac catheterization in AM. I discussed the diagnosis and plan of care with the patient at the bedside. I also spoke with the patient's daughter Mandeep over the phone. Moderate level of MDM based on addressing above issues. This documentation was transcribed using voice recognition software. Several attempts were made to ensure accuracy. However inadvertent computerized actuarial analyst errors may be present. Nahid Serrato. Hospitalist. [...] deep vein thrombosis (DVT) prophylaxis (Z79.899: Other detention (current) drug therapy) Urinary retention (R33.9: Retention [...] deep vein thrombosis (DVT) prophylaxis (Z79.899: Other long term care pharmacist (current) drug therapy) Urinary retention (R33.9: Retention of urine, unspecified) Extracted from: Title:Urology Consult and H&P 2 Author:DYLAN MCMAHON, Cody Dumont Date:07/03/23 Impression and Plan Diagnosis Atrial fibrillation with RVR (YWX42-QV I48.91, Discharge, Medical). Constipation (ONF26-WM K59.00, Discharge, Medical). Other urethral stricture, female (NQP90-[place] N35.82, Discharge, Medical). Urinary retention (IXF43-[place] R33.9, Working, Medical). Course: Worsening, Overall this [...] [facility] Care/Day Moderate 35 Minutes 33109 2. Elevated troponin (R79.89: Other specified abnormal findings of blood chemistry) Secondary to type II non-ST segment elevation myocardial infarction from above. Echocardiogram ordered. Cardiology consult pending. Continue on aspirin. Ordered: Echo Transthoracic Complete [facility] Care/Day Moderate 35 Minutes 39054 3. Urinary hesitancy (R39.11: Hesitancy of micturition) Secondary to urethral stricture. Patient is status post Robles catheter placement for urinary retention. She will follow-up with urologist as outpatient. Ordered: [facility] Care/Day Moderate 35 Minutes 48742 4. Constipation (K59.00: Constipation, unspecified) Started patient on MiraLAX and lactulose. Ordered: lactulose, 20 gram = 30 mL, Syrup, Oral, Once, Stop date 07/03/23 12:00:00 EST, Routine, Start date 07/03/23 12:00:00 EST, 07/03/23 12:00:00 EST polyethylene glycol 3350, 17 gram = 1 EA, Powder-Recon, Oral, Daily, Routine, Start date 07/03/23 12:00:00 EST, 07/03/23 12:00:00 EST [facility] Care/Day Moderate 35 Minutes 70791 5. Other urethral stricture, female (N35.82: Other urethral stricture, female) Resulting in urinary retention. Patient is status post Robles catheter during this admission. Gets dilation of the ureter every 6 months. Urology consult pending. 6. On deep vein thrombosis (DVT) prophylaxis (Z79.899: Other detention (current) drug therapy) Lovenox. Disposition: Pending echocardiogram, cardiology and urology consult. I discussed the diagnosis and plan of care with the patient at the bedside. Moderate level of MDM based on addressing above issues. This documentation was transcribed using voice recognition software. Several attempts were made to ensure accuracy. However inadvertent computerized actuarial analyst errors may be present. Nahid Serrato. Hospitalist. [...] deep vein thrombosis (DVT) prophylaxis (Z79.899: Other detention (current) drug therapy) SCD, enoxaparin Orders: acetaminophen, [...] Date:11/22/2023 01:00:00 PM Scheduled Provider:Micheline BROOKS MD Location:[facility] Appointment Type:URO Office Visit Future Scheduled Tests Laboratory* Basic Metabolic Panel 07/12/23 * Digoxin Level 07/12/23 [facility]11-22-2023 Evaluation + Plan noteExtracted from: Title:Procedure [...] Date:11/22/2023 01:00:00 PM Scheduled Provider:Micheline BROOKS MD Location:[facility] Appointment Type:URO Office Visit Future Scheduled Tests Laboratory* Basic Metabolic Panel 07/12/23 * Digoxin Level 07/12/23 [facility]11-22-2023 Hospital Discharge instructions Patient Education 07/05/2023 09:04:47 CV - Cardiovascular Discharge Instructions (Custom) [place], [place] CARDIOVASCULAR DISCHARGE INSTRUCTIONS Diet: Resume pre-procedure [...] hours post procedure: Actoplus MetGlucophageGlucophage XR GlucovanceAvandametFortamet Cfs-coqywjwbhFvjrmwJuus-wxxntbzlr GlumetzaJanumetMetaglip RiometGlycomet *Minimal pain, soreness and/or discomfort [...] you are interested in smoking cessation, contact [facility] at [phone], ext. [phone]. In the event you are unable to reach your physician, please call Stephan at [phone] and the double end tenoner operator will assist you. Seek Immediate Medical Care for: Bleeding: Apply continuous pressure to the site and Call 911. Should the arm or leg become cold, numb, blue or white call your physician immediately. Signs of infection are redness, warmth, swelling, increased tenderness, colored drainage, fever or chills Chest pain Follow Up Care 07/02/2023 21:18:33 With:Taylor HENRIQUEZ Address: [address] [place] [address]- [phone] Business (1) When:2 weeks Comments:Call for followup appointment With:Peggy Nazario Address: [address] [place] [address]- Business (1) When:07/10/2023 13:00:00 With:Micheline BROOKS Address: [facility] [address] [place] [address]- Business (1) When: Unknown Comments:Call for followup appointment re: the indwelling Robles catheter. [facility]11-20-2023 [facility]FishWestern [facility] Hospital CenterComment on above:Result Comment: Electronically Signed By: Noman PATTON DO\.br\Date and Time Signed: 07/03/23 02:59 [id number] Hospital Discharge instructions Patient Education 07/01/2023 00:37:46 Abdominal Pain, Adult, Vndw-aq-Hfvj Abdominal Pain, Adult Many things can cause belly (abdominal) pain. Most times, belly pain is not dangerous. Many cases of belly pain can be watched and treated at home. Sometimes, though, belly pain is serious. Your doctor will try to find the cause of your belly pain. Follow these instructions at home: Medicines Take mrfc-qkj-dlhfmlz and prescription medicines only as told by [...] your belly pain for any changes. Take uhyb-rci-ddebjps and prescription medicines only as told by [...] provider. Document Revised: 12/09/2019 Document Reviewed: 12/09/2019 [employer] Patient Education 2022 [employer]. Follow Up Care 06/30/2023 18:51:38 With:Peggy Nazario Address: [address] [place], [place] [phone] Business (1) When:07/04/2023 Comments:You can use the Bentyl, Zofran every 6 hours as needed for pain and nausea. Please follow-up with your primary care doctor next 2 to 3 days for further evaluation management. Please return to the ED for any new or worsening symptoms. [facility]11-17-2023 Evaluation + Plan noteExtracted from: Title:ED Note Author:Koby Masterson DO Date :06/30/23 Abdominal pain, acute (R10.9 : Unspecified abdominal pain) Orders: dicyclomine, 20 mg = 2 mL, Injection, IntraMuscular, Once, Stop date 06/30/23 20:58:00 EST, STAT, Start date 06/30/23 20:58:00 EST, 06/30/23 20:58:00 EST dicyclomine, 10 mg = 1 cap(s), Oral, QID, X 7 day(s), # 14 cap(s), Refills(s) 0, Pharmacy: [facility] #[id number], 165, cm, 06/30/23 19:37:00 EST, Height/Length Dosing, [...] q8hr, # 12 tab(s), Refills(s) 0, Pharmacy: [facility] #[id number], 165, cm, 06/30/23 19:37:00 EST, Height/Length Dosing, 55.7, kg, 06/30/23 19:37:00 EST, Weight Dosing Automated Diff Basic Metabolic Panel CBC w/ Auto Diff CT Abdomen/Pelvis w/o Contrast eGFR Extra Blue Tube Hepatic Function Panel Lipase Level UA With Cult Reflex Future Appointments Appointment Date:11/22/2023 01:00:00 PM Scheduled Provider:Micheline BROOKS MD Location:[facility] Appointment Type:URO Office Visit [facility]10-10-2023 Note [id number] Discharge instructions Patient Education 04/26/2023 [...] symptoms are. Treatment may include: Using an qmma-vcx-wxvmirl vaginal lubricant before sex. Using a long-acting [...] Follow these instructions at home: Medicines Take bmbr-dot-cbqkyhs and prescription medicines only as told by your health care provider. Do not use herbal or alternative medicines unless your health care provider says that you can. Use qcxt-eeu-xngnzjg creams, lubricants, or moisturizers for dryness only [...] provider. Document Revised: 01/28/2021 Document Reviewed: 01/28/2021 [employer] Patient Education 2022 [employer]. Follow Up Care 10/25/2022 10:34:06 With:CECILIA MCMAHON, Micheline Morgan, URL Address: [facility] [address] [place] [address]- When: Unknown [facility] 08-22-2023 Hospital Discharge instructions Patient Education [...] Follow these instructions at home: Medicines Take cvzm-lfy-axgehih and prescription medicines only as told by [...] Watch your condition for any changes. Take caqb-dhi-iiinktx and prescription medicines only as told by [...] provider. Document Revised: 09/18/2020 Document Reviewed: 12/09/2019 [employer] Patient Education 2022 [employer]. Follow Up Care 04/04/2023 13:51:29 With:Peggy Nazario Address: [address] [place] [phone] Business (1) When:04/07/2023 16:25:09 Comments:Call the office [...] you develop any new or worsening symptoms. [facility]06-18-2023 Hospital Discharge instructions Patient Education 01/28/2023 23:28:19 RICE Therapy for Routine Care of Injuries, Hbzj-ez-Dufc RICE Therapy for Routine Care of Injuries [...] provider. Document Revised: 05/20/2021 Document Reviewed: 05/20/2021 [employer] Patient Education 2022 [employer] 01/28/2023 23:28:19 Hand Contusion Hand Contusion [...] An elastic wrap to support your hand. Uuqf-kdg-luxucqa medicines to control pain. Follow these instructions [...] sitting or lying down. General instructions Take anjt-qqc-niciexl and prescription medicines only as told by [...] provider. Document Revised: 11/18/2021 Document Reviewed: 11/18/2021 [employer] Patient Education 2022 [employer]. Follow Up Care 01/28/2023 21:23:51 With:Peggy Nazario Address: [place] [address] Pollsb (1) When:01/31/2023 Comments:Follow-up with your primary care provider in 3 to 5 days. If symptoms worsen, do not improve, or new symptoms arise please report back to emergency department for further evaluation. [facility]06-17-2023 Evaluation + Plan noteExtracted from: Title:ED Note Author:Med Medeiros PA-C te:01/28/23 Contusion of left hand (S60. 222A: Contusion of left hand, initial encounter) Orders: XR Hand 3+ Views Left Future Appointments Appointment Date:04/26/2023 03:15:00 PM Scheduled Provider:Micheline BROOKS MD Location:[facility] Appointment Type:URO Office Visit [facility]03-14-2023 Hospital Discharge instructions Patient Education 10/25/2022 10:27:36 [...] [facility] [address] [place] [address]- Business (1) When:04/27/2023 10:27:19 [facility]07-21-2022 Hospital Discharge instructions Patient Education 03/03/2022 [...] reconstructed. Follow these instructions at home: Take vezu-ecm-twljaqg and prescription medicines only as told by [...] 08/26/2016 Document Revised: 03/13/2019 Document Reviewed: 03/13/2019 [employer] Patient Education 2020 [employer]. Follow Up Care 02/28/2022 09:40:23 With:CARMINA GARRISON PA-C, URL Address: [address] [place] [address] When: Unknown [facility] Shira 07-05-2022 Hospital Discharge instructions Patient Education 02/15/2022 14:03:18 Contusion, Xnou-wf-Ujuo Contusion A contusion is a deep bruise. [...] sitting or lying down. General instructions Take biux-fsr-orneucz and prescription medicines only as told by [...] is also called RICE. Youmay be given ibcs-dhh-bzwqzvi medicines for pain. Contact a doctor if [...] 01/16/2009 Document Revised: 03/22/2019 Document Reviewed: 03/22/2019 [employer] Patient Education 2020 [employer]. 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 Contact a doctor if: Your symptoms do [...] 07/31/2006 Document Revised: 11/20/2019 Document Reviewed: 10/06/2017 [employer] Patient Education 2020 [employer]. Follow Up Care 12/24/2021 17:34:06 With:Krysta Church Address: [address] [place] [address], [address] [place] [phone] Business (1) When:12/27/2021 18:21:21 With:Peggy Nazario Address: [address] [place] [phone]- Business (1) When:Within 3 Day(s) [facility] Future Appointments Appointment Date:03/02/2022 02:00:00 PM Scheduled Provider:Micheline BROOKS MD Location:[facility] Appointment Type:URO Office Visit Future Scheduled Tests Laboratory* COVID-19 ([facility]) [facility]12/21 [facility] Future Appointments Appointment Date:02/28/2022 09:30:00 AM Scheduled Provider:[facility]ennifer Iraheta [facility] New Patient (FT) Appointment Date:03/02/2022 02:00:00 PM Scheduled Provider:Micheline BROOKS MD Location:[facility] Appointment Type:URO Office Visit Future Scheduled Tests Laboratory* COVID-19 ([facility]) [facility] Future [facility]ments Appointment Date:04/04/2022 10:00:00 AM Scheduled Provider:Yennifer Iraheta [facility] Type:Vascular New Patient (FT) Future Scheduled Tests Laboratory* COVID-19 ([facility]) 08/12/[address] [facility] Evaluation + Plan note Future Appointments Appointment Date:07/25/2022 09:15:00 AM Scheduled Provider:Yennifer Iraheta MD [facility] Type:Vascular Follow Up (FT) Appointment Date:09/26/2022 02:45:00 PM Scheduled Provider:Micheline BROOKS MD [facility] App[facility] Type:URO Office Visit Future Scheduled Tests Laboratory* COVID-19 ([facility]) 08/12/21 Radiology* US LE Venous Duplex Insufficiency Bilat 06[facility]14/22 [facility] Future Appointments Appointment Date:07/25/2022 09:15:00 AM Scheduled Provider:Yennifer Iraheta MD [facility] Type:Vascular Follow Up (FT) Appointment Date:09/26/2022 02:45:00 PM Scheduled Provider:Micheline BROOKS MD [facility] Appoint[facility] Type:URO Office Visit Future Scheduled Tests Laboratory* COVID-19 ([facility]) 08/12/21 [facility] Future Appointments Appointment Date:09/26/2022 02:45:00 PM Scheduled Provider:Micheline BROOKS MD [facility] App[facility] Type:URO [facility] Future Appointments Appointment Date:12/05/2022 03:00:00 PM Scheduled Provider: [facility] Type:MA Screen (FT) Appointment Date:04/26/2023 03:15:00 PM Scheduled Provider:Micheline BROOKS MD Location:[facility] Appointment Type:URO Office Visit Future Scheduled Tests Radiology* MA Mamm Screen w/CAD if perf and 3D Zac 12/05/22 [facility] Future Appointments Appointment Date:04/26/2023 03:15:00 PM Scheduled Provider:Micheline BROOKS MD Location:[facility] Shira Appointment Type:URO [facility] Future Appointments Appointment Date:07/19/2023 03:00:00 PM Scheduled Provider:Micheline BROOKS MD Location:[facility] WILL Silva Appointment Type:URO Office Visit Appointment Date:07/20/2023 10:30:00 AM Scheduled Provider:Taylor HENRIQUEZ MD [facility] Type:Cardiology Inpatient Follow Up (FT) Appointment Date:11/22/2023 01:00:00 PM Scheduled Provider:Micheline [facility]OOKS [facility] Appointment Type:URO Office Visit Future Scheduled Tests Laboratory* Basic Metabolic Panel 07/12/23 * Digoxin [facility] Future Appointments Appointment Date:01/24/2024 02:30:00 PM Scheduled Provider:Micheline BROOKS MD [facility] Appointment Type:URO Office Visit Future Scheduled Tests Laboratory* Basic Metabolic Panel 07/12/23 * Digoxin Level 07/12/23 [facility] Future Appointments Appointment Date:01/24/2024 02:30:00 PM Scheduled Provider:Micheline BROOKS MD [facility] App[facility] Type:URO Office Visit Diagnostic Tests Pending * Urine Culture 11/22/23 Future Scheduled Tests Laboratory* Basic Metabolic Panel 07/12/23 * Digoxin Level [facility]12[facility]23 [facility] Diagnosis Anxiety Anxiety state, unspecified [facility] Diagnosis Gastroesophageal reflux disease without esophagitis Esophageal reflux documented in [facility] encounter [facility]* Diagnosis Non-rheumatic mitral regurgitation- Primary Mitral valve disorders Chronic HFrEF (heart failure with reduced ejection fraction) (HCC) Nonrheumatic tricuspid valve regurgitation Tricuspid valve disorders, specified as nonrheumatic Non-ischemic cardiomyopathy (HCC) Other primary cardiomyopathies Persistent atrial fibrillation (HCC) Atrial fibrillation long term care pharmacist 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 Long-term (current) use of 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s History of cardioversion Personal history of surgery to heart and great vessels, presenting hazards to health Primary hypertension Unspecified essential hypertension [facility] Diagnosis Mitral valve insufficiency, unspecified etiology- Primary Anxiety Anxiety state, unspecified Paroxysmal atrial fibrillation (CMS/HCC) Atrial fibrillation Other cardiomyopathy (CMS/HCC) Hospital discharge follow-up Other follow-up examination Other thrombophilia (D68.69) Atherosclerosis of aorta (I70.0) Atherosclerosis of aorta [facility]* Diagnosis Feeling of incomplete bladder emptying- Primary Incomplete bladder emptying Stricture of female urethra, unspecified stricture type Severe protein-calorie malnutrition (HCC) Other severe protein-calorie malnutrition [facility]* Diagnosis Screening for genitourinary condition Screening for other and unspecified genitourinary condition [facility]* Diagnosis Feeling of incomplete bladder emptying- Primary Incomplete bladder emptying Stricture of female urethra, unspecified stricture type Severe protein-calorie malnutrition (HCC) Other severe protein-calorie malnutrition [facility]* Diagnosis Mitral valve regurgitation due to cardiomyopathy (HCC)- Primary [facility]* Diagnosis Non-rheumatic mitral regurgitation Mitral valve disorders Persistent atrial fibrillation (HCC) Atrial fibrillation Non-ischemic cardiomyopathy (HCC) Other primary cardiomyopathies Chronic HFrEF (heart failure with reduced ejection fraction) ([facility]) [facility]* Diagnosis Stricture of female urethra, unspecified stricture type- Primary Feeling of incomplete bladder emptying Incomplete bladder emptying documented in this encounter [facility] note* Diagnosis Screening for genitourinary condition Screening for other and unspecified genitourinary condition documented in this encounter [facility] course Narrative No data available for this section [facility] Discharge instructions No data available for this section [facility] No data available for this section [facility] for referral (narrative) , Mitral Valve and Tricuspid Valve Repair. Referred by: Taylor HENRIQUEZ MD [facility] for referral (narrative)* Outpatient Procedure (Routine) - Authorized Specialty Diagnoses / Procedures Referred By Marietta aguiar Referred To [facility] Diagnoses Non-rheumatic mitral regurgitation Persistent atrial fibrillation (HCC) Non-ischemic cardiomyopathy (HCC) Chronic HFrEF (heart failure with reduced ejection fraction) (HCC) Procedures ECG COMPLETE ECG ROUTINE ECG W/LEAST 12 LDS W/I&R [place] APRN.CONTRACT ADMINISTRATIVE ASSISTANT [address] [place] [address] [facility] [place] [address] [place] [address] Referral ID Status Reason Start Date Expiration Date Visits Requested Visits Authorized [id number] Authorized Auto-Generat ed Referral 11/08/2023 09/25/2024 1 1 * Transition of Care (Routine) - Ref Not Required Specialty Diagnoses / Procedures Referred By Contac t Referred To Contact Diagnoses Non-rheumatic mitral regurgitation Persistent atrial fibrillation (HCC) Non-ischemic cardiomyopathy (HCC) Chronic HFrEF (heart failure with reduced ejection fraction) (HCC) Procedures CARDIOVASCULAR MEDICINE OP FOLLOW UP APPT Ana Leary APRN.CNP [address] [place] [address] Referral ID Status Reason Start Date Expiration Date Visits Requested Visits Authorized [id number] Ref Not Required PCP Requested Referral 09/26/2023 09/25/2024 1 1 * Outpatient Procedure (Routine) - Authorized Specialty Diagnoses / Procedures Referred By Contac t Referred To [facility] Diagnoses Non-rheumatic mitral regurgitation Persistent atrial fibrillation (HCC) Non-ischemic cardiomyopathy (HCC) Chronic HFrEF (heart failure with reduced ejection fraction) (HCC) Procedures ECG COMPLETE ECG ROUTINE ECG W/LEAST 12 LDS W/I&R Ana Rivas APRN.CONTRACT ADMINISTRATIVE ASSISTANT [address] [place] [address] [facility] [place] [address] [place] [address] Referral ID Status Reason Start Date Expiration Date Visits Requested Visits Authorized [id number] Authorized Auto-Generat ed Referral 10/25/2023 09/25/2024 1 1 * Transition of Care (Routine) - Ref Not Required Specialty Diagnoses / Procedures Referred By Contac t Referred To Contact Diagnoses Non-rheumatic mitral regurgitation Persistent atrial fibrillation (HCC) Non-ischemic cardiomyopathy (HCC) Chronic HFrEF (heart failure with reduced ejection fraction) (HCC) Procedures CARDIOVASCULAR MEDICINE OP FOLLOW UP APPT ORDER Ana Rivas APRN.CNP [address] [place] [address] Referral ID Status Reason Start Date Expiration Date Visits Requested Visits Authorized [id number] Ref Not Required PCP Requested Referral 09/26/2023 09/25/2024 1 1 * Outpatient Procedure (Routine) - Authorized Specialty Diagnoses / Procedures Referred By Contac t Referred To [facility] Diagnoses Non-rheumatic mitral regurgitation Persistent atrial fibrillation (HCC) Non-ischemic cardiomyopathy (HCC) Chronic HFrEF (heart failure with reduced ejection fraction) (HCC) Procedures ECG COMPLETE ECG ROUTINE ECG W/LEAST 12 LDS W/I&R Ana Rivas APRN.CONTRACT ADMINISTRATIVE ASSISTANT [address] [place] [address] [facility] [place] [address] [place] [address] Referral ID Status Reason Start Date Expiration Date Visits Requested Visits Authorized [id number] Authorized Auto-Generat ed Referral 10/10/2023 09/25/2024 1 1 * Transition of Care (Routine) - Ref Not Required Specialty Diagnoses / Procedures Referred By Contac t Referred To Contact Diagnoses Non-rheumatic mitral regurgitation Persistent atrial fibrillation (HCC) Non-ischemic cardiomyopathy (HCC) Chronic HFrEF (heart failure with reduced ejection fraction) (HCC) Procedures CARDIOVASCULAR MEDICINE OP FOLLOW UP APPT ORDER Ana Rivas APRN.CNP [address] [place] [address] Referral ID Status Reason Start Date Expiration Date Visits Requested Visits Authorized [id number] Ref Not Required PCP Requested Referral 09/26/2023 09/25/2024 1 1 [facility] (narrative)* Consultation (Routine) - Pending Review Specialty Diagnoses / Procedures Referred By Marietta aguiar Referred To Contact Cardiothoracic Surgery Diagnoses Mitral valve insufficiency, unspecified etiology Procedures [place] OFFICE/OUTPATIENT NEW HIGH MDM 60 MINUTES Peggy Nazario MD [address] [place] [address] Referral ID Status Reason Start Date Expiration Date Visits Requested Visits Authorized [id number] Pending Review Specialty Services Required 09/18/2023 03/16/2024 [...] Comments Full Code Order Discussed With: Patient Date Activated Date Inactivated Comments 08/24/2023 8:43 PM 08/31/2023 9:57 PM Question Answer Comments Full Code Order Discussed With: Patient Additional Source Comments INFORMATION SOURCE (unrecogn ized section and content) DATE CREATED AUTHOR 08/23/2021 [facility] dical Specialist DATE CREATED AUTHOR AUTHOR'S ORGANIZ ATION 11/25/2023 [facility] DATE CREATED AUTHOR AUTHOR'S ORGANIZ ATION 03/30/2024 [facility] dical Specialists [facility] DATE CREATED AUTHOR AUTHOR'S ORGANIZ ATION 05/11/2024 [facility] DATE CREATED AUTHOR AUTHOR'S ORGANIZ ATION 05/29/2024 [facility] Care Team (unrecognized sect ion and content) Rural Carrier Associate Relationship Specialty Start Date End Date Peggy Nazario [address] [place] [address] PCP - General Family Medicine 07/24/23 Micheline Sorto MD [address] [place] [address] Surgeon Cardiac Surg 07/24/23 Taylor Henriquez MD [facility] [address] [address] Carbon Lamp Cleaner Cardiology 07/24/23 Rural Carrier Associate Relationship Specialty Start Date End Date Peggy Nazario MD [address] [place] [address] PCP - ACO Reach 01/05/23 Peggy Nazario MD [address] [place] [address] PCP - General Family Medicine 02/08/23 Rural Carrier Associate Relationship Specialty Start Date End Date Peggy Nazario MD [address] [place] [address] PCP - ACO Reach 01/05/23 Peggy Nazario MD [address] [place] [address] PCP - General Family Medicine 02/08/23 Rural Carrier Associate Relationship Specialty Start Date End Date Peggy Nazario [address] [place] [address] PCP - General Family Medicine 07/24/23 Micheline Sorto MD [address] [place] [address] Surgeon Cardiac Surg 07/24/23 Taylor Henriquez MD [address] [place] [address] Carbon Lamp Cleaner Cardiology 07/24/23 Alea Harley MD [address] [place] [address] Cardiology 07/28/23 Alea Harley MD [address] [place] [address] Primary Staff Physician Cardiology 08/23/23 Rural Carrier Associate Relationship Specialty Start Date End Date Peggy Nazario [address] [place] [address] [place] [address] PCP - General Family Medicine 07/24/23 Micheline Sorto MD [address] [place] [address] Surgeon Cardiac Surg 07/24/23 Taylor Henriquez MD [address] [place] [address] Carbon Lamp Cleaner Cardiology 07/24/23 Alea Harley MD [address] [place] [address] Cardiology 07/28/23 Alea Harley MD [address] [place] [address] Primary Staff Physician Cardiology 08/23/23 Rural Carrier Associate Relationship Specialty Start Date End Date Peggy Nazario [address] [place] [address] PCP - General Family Medicine 07/24/23 Micheline Sorto MD [address] [place] [address] Surgeon Cardiac Surg 07/24/23 Taylor Henriquez MD [facility] [address] [place] [address] Carbon Lamp Cleaner Cardiology 07/24/23 Alea Harley MD [address] [place] [address] Cardiology 07/28/23 Alea Harley MD [address] [place] [address] Primary Staff Physician Cardiology 08/23/23 Rural Carrier Associate Relationship Specialty Start Date End Date Peggy Nazario MD [address] [place] [address] PCP - ACO Reach 01/05/23 Peggy Nazario MD [address] [place] [address] PCP - General Family Medicine 02/08/23 Rural Carrier Associate Relationship Specialty Start Date End Date Peggy Nazario [address] [place] [address] PCP - General Family Medicine 07/24/23 Micheline Sorto MD [address] [place] [address] Surgeon Cardiac Surg 07/24/23 Taylor Henriquez MD [address] [place] [place] [address] Carbon Lamp Cleaner Cardiology 07/24/23 Alea Harley MD [address] [place] [address] Cardiology 07/28/23 Alea Harley MD [address] [place] [address] Primary Staff Physician Cardiology 08/23/23 Rural Carrier Associate Relationship Specialty Start Date End Date Peggy Nazario MD [address] [place] [address] PCP - ACO Reach 01/05/23 Peggy Nazario MD [address] [place] [address] PCP - General Family Medicine 02/08/23 Rural Carrier Associate Relationship Specialty Start Date End Date Peggy Nazario [address] [place] [address] PCP - General Family Medicine 07/24/23 Micheline Sorto MD [address] [place] [address] Surgeon Cardiac Surg 07/24/23 Taylor Henriquez MD [address] [place] [address] Carbon Lamp Cleaner Cardiology 07/24/23 Alea Harley MD [address] [place] [address] Cardiology 07/28/23 Alea Harley MD [address] [place] [address] Primary Staff Physician Cardiology 08/23/23 Rural Carrier Associate Relationship Specialty Start Date End Date Peggy Nazario [address] [place] [address] PCP - General Family Medicine 07/24/23 Micheline Sorto MD [address] [place] [address] Surgeon Cardiac Surg 07/24/23 Taylor Henriquez MD [facility] [place] [address] Carbon Lamp Cleaner Cardiology 07/24/23 Alea Harley MD [address] [place] [address] Cardiology 07/28/23 Alea Harley MD [address] [place] [address] Primary Staff Physician Cardiology 08/23/23 Rural Carrier Associate Relationship Specialty Start Date End Date Peggy Nazario [address] [place] [address] PCP - General Family Medicine 07/24/23 Micheline Sorto MD [address] [place] [address] Surgeon Cardiac Surg 07/24/23 Taylor Henriquez MD [address] [place] [address] Carbon Lamp Cleaner Cardiology 07/24/23 Alea Harley MD [address] [place] [address] Cardiology 07/28/23 Alea Harley MD [address] [place] [address] Primary Staff Physician Cardiology 08/23/23 Rural Carrier Associate Relationship Specialty Start Date End Date Peggy Nazario [address] [place] [address] PCP - General Family Medicine 07/24/23 Micheline Sorto MD [address] [place] [address] Surgeon Cardiac Surg 07/24/23 Taylor Henriquez MD [address] [place] [address] Carbon Lamp Cleaner Cardiology 07/24/23 Alea Harley MD [address] [place] [address] Cardiology 07/28/23 Alea Harley MD [address] [place] [address] Primary Staff Physician Cardiology 08/23/23 Rural Carrier Associate Relationship Specialty Start Date End Date Peggy Nazario [address] [place] [address] PCP - General Family Medicine 07/24/23 Micheline Sorto MD [address] [place] [address] Surgeon Cardiac Surg 07/24/23 Taylor Henriquez MD [address] [facility] [place] [address] Carbon Lamp Cleaner Cardiology 07/24/23 Alea Harley MD [address] [place] [address] Cardiology 07/28/23 Alea Harley MD [address] [place] [address] Primary Staff Physician Cardiology 08/23/23 Rural Carrier Associate Relationship Specialty Start Date End Date Peggy Nazario [address] [place] [address] PCP - General Family Medicine 07/24/23 Micheline Sorto MD [address] [place] [address] Surgeon Cardiac Surg 07/24/23 Taylor Henriquez MD [address] [place] [address] Carbon Lamp Cleaner Cardiology 07/24/23 Alea Harley MD [address] [place] [address] Cardiology 07/28/23 Alea Harley MD [address] [place] [address] Primary Staff Physician Cardiology 08/23/23 Rural Carrier Associate Relationship Specialty Start Date End Date Aravind Peggy John [address] [place] [address] PCP - General Family Medicine 07/24/23 Micheline Sorto MD [address] [place] [id number] Surgeon Cardiac Surg 07/24/23 Taylor Henriquez MD [address] [facility] [address] Carbon Lamp Cleaner Cardiology 07/24/23 Alea Harley MD [address] [place] [address] Cardiology 07/28/23 Alea Harley MD [address] [place] [address] Primary Staff Physician Cardiology 08/23/23 Source Comments (unrecognize d section and content) In the event this informatio n is protected by the Federal Confidentiality of Alcohol and Drug Abuse Patient Records regulations: The Federal rules restrict any use of the information to criminally investigate or prosecute any alcohol or drug abuse patient.[facility] the event this information is protected by the Federal Confidentiality of Alcohol and Drug Abuse Patient Records regulations: The Federal rules restrict any use of the information to criminally investigate or prosecute any alcohol or drug abuse patient.[facility] HospitalIn the event this information is protected by the Federal Confidentiality of Alcohol and Drug Abuse Patient Records regulations: The Federal rules restrict any use of the information to criminally investigate or prosecute any alcohol or drug abuse patient.[facility] HospitalIn the event this information is protected by the Federal Confidentiality of Alcohol and Drug Abuse Patient Records regulations: The Federal rules restrict any use of the information to criminally investigate or prosecute any alcohol or drug abuse patient.[facility] HospitalIn the event this information is protected by the Federal Confidentiality of Alcohol and Drug Abuse Patient Records regulations: The Federal rules restrict any use of the information to criminally investigate or prosecute any alcohol or drug abuse patient.[facility] HospitalIn the event this information is protected by the Federal Confidentiality of Alcohol and Drug Abuse Patient Records regulations: The Federal rules restrict any use of the information to criminally investigate or prosecute any alcohol or drug abuse patient.[facility] HospitalIn the event this information is protected by the Federal Confidentiality of Alcohol and Drug Abuse Patient Records regulations: The Federal rules restrict any use of the information to criminally investigate or prosecute any alcohol or drug abuse patient.[facility] HospitalIn the event this information is protected by the Federal Confidentiality of Alcohol and Drug Abuse Patient Records regulations: The Federal rules restrict any use of the information to criminally investigate or prosecute any alcohol or drug abuse patient.[facility] HospitalIn the event this information is protected by the Federal Confidentiality of Alcohol and Drug Abuse Patient Records regulations: The Federal rules restrict any use of the information to criminally investigate or prosecute any alcohol or drug abuse patient.[facility] HospitalIn the event this information is protected by the Federal Confidentiality of Alcohol and Drug Abuse Patient Records regulations: The Federal rules restrict any use of the information to criminally investigate or prosecute any alcohol or drug abuse patient.[facility] HospitalIn the event this information is protected by the Federal Confidentiality of Alcohol and Drug Abuse Patient Records regulations: The Federal rules restrict any use of the information to criminally investigate or prosecute any alcohol or drug abuse patient.[facility] HospitalIn the event this information is protected by the Federal Confidentiality of Alcohol and Drug Abuse Patient Records regulations: The Federal rules restrict any use of the information to criminally investigate or prosecute any alcohol or drug abuse patient.[facility] HospitalIn the event this information is protected by the Federal Confidentiality of Alcohol and Drug Abuse Patient Records regulations: The Federal rules restrict any use of the information to criminally investigate or prosecute any alcohol or drug abuse patient.[facility] HospitalIn the event this information is protected by the Federal Confidentiality of Alcohol and Drug Abuse Patient Records regulations: The Federal rules restrict any use of the information to criminally investigate or prosecute any alcohol or drug abuse patient.[facility] Reason for Visit (unrecogniz ed section and content) Reason Comments Insurance Inquiry Reason Comments Med Refill Reason Comments Medication Problem Reason Comments Follow Up Reason Comments Consult Reason Comments Results Reason Comments Cystoscopy-1 Reason Comments Patient Update Specialty Diagnoses / Procedures Referred By Contac t Referred To Contact HOSP INPATIENT Diagnoses Decompensated heart failure (HCC) Mitral valve regurgitation due to cardiomyopathy (HCC) Decompensated heart failure (HCC) Procedures [address] [place] [address] IP/OBS CARE HIGH [facility] 75 MINUTES MEDICATION MANAGEMENT CONSULTS [facility] [id number] [place] [address] Referral ID Status Reason Start Date Expiration Date Visits Re quested Visits Authorized [id number] 1 1 Reason Comments Refill Request Reason Comments Follow Up Inactive Administered Medications - up to 3 [...] BE BASED ON THE PRIMARY CLINICAL RECORDS. [facility]. provides no warranty or guarantee of the accuracy or completeness of information in this document.
[2024-06-01 11:33] VITALS: BP 136/87; PULSE 76; O2SAT 99
--- NOTE | 2024-06-01 12:53 | ED.FEMALEGU1 ---
HPI - Female Genitourinary General Chief complaint: Urogenital-Female Stated complaint: BLOOD IN URINE Time Seen by Provider: 06/01/24 10:11 Source: patient Mode of arrival: walk-in Limitations: no limitations History of Present Illness HPI Narrative: The patient came to the ER after she had an episode of bloody urine that she had this morning at 4 AM she also mentioned that she feels that she had another episode almost 4 hours later with the urine was less bloody The patient when asked about any other complaints she mentioned that she have this back pain that she usually gets whenever she is laying in the bed wrong and she does not think that is significant pain Related Data Home Medications ?Medication ?Instructions ?Recorded ?Confirmed atorvastatin 40 mg tablet 40 mg PO .once daily 10/15/23 06/01/24 carvedilol 3.125 mg tablet 6.25 mg PO BID 10/15/23 06/01/24 lorazepam 0.5 mg tablet 0.5 mg PO TID PRN anxiety 10/15/23 06/01/24 spironolactone 25 mg tablet 12.5 mg PO .once daily 10/15/23 06/01/24 apixaban 5 mg tablet (Eliquis) 5 mg PO BID 06/01/24 06/01/24 Allergies Allergy/AdvReac Type Severity Reaction Status Date / Time meperidine (From Demerol) Allergy Intermediate Agitated Verified 06/01/24 10:08 Review of Systems ROS Status of ROS 10 or more systems reviewed and unremarkable except as noted in history and below PFSH PFSH Social History Smoking status: Former smoker Little interest or pleasure in doing things: not at all Feeling down, depressed, or hopeless: not at all Exam Narrative Exam Narrative: Nurses notes and vital signs reviewed and patient is not hypoxic. General: Well-appearing and in no apparent distress. Skin: Warm, dry, no pallor noted. No rash. Head: Normocephalic, atraumatic. Neck: Supple, non-tender. Eye: Pupils are equal, round and EOMI. No scleral icterus. Ears, Nose, Mouth, and Throat: TM are clear, no nasal mucosal hypertrophy. Oral mucosa is moist, no posterior oropharynx erythema, uvula is mid-line Cardiovascular: Regular Rate and Rhythm without murmur, gallop or rub. Respiratory: No accessory muscle use or respiratory distress. Lungs are clear to auscultation, no wheezing, rales or rhonchi Chest Wall: no tenderness Back: No midline thoracic or lumbar vertebral tenderness. No CVA tenderness Musculoskeletal: normal ROM, no calf or popliteal tenderness, no lower extremity edema/swelling GI: Abdomen is soft, non-distended. Normal bowel sounds. No masses appreciated. No tenderness to palpation. No rebound, guarding, or rigidity noted. Neurological: A&O x4. No cranial nerve dysfunction observed. No truncal ataxia. Moves all extremities. Sensation intact. Psychiatric: Cooperative and interactive. Normal mood and affect. Constitutional Vital Signs, click to edit/add: Last Vital Signs Temp 98.3 F 06/01/24 10:02 Pulse 76 06/01/24 11:33 Resp 16 06/01/24 11:33 BP 136/87 06/01/24 11:33 Pulse Ox 99 06/01/24 11:33 O2 Del Method Room Air 06/01/24 11:33 Course Vital Signs Vital signs: Vital Signs Temperature 98.3 F 06/01/24 10:02 Pulse Rate 75 06/01/24 10:02 Respiratory Rate 16 06/01/24 10:02 Blood Pressure 134/71 06/01/24 10:02 Pulse Oximetry 100 06/01/24 10:02 Oxygen Delivery Method Room Air 06/01/24 10:02 Temperature 98.3 F 06/01/24 10:02 Pulse Rate 76 06/01/24 11:33 Respiratory Rate 16 06/01/24 11:33 Blood Pressure 136/87 06/01/24 11:33 Pulse Oximetry 99 06/01/24 11:33 Oxygen Delivery Method Room Air 06/01/24 11:33 MDM - Female Genitourinary MDM Narrative Medical decision making narrative: The patient urine was not showing any hematuria in the ER and it was clear and the patient mentioned that she does not have any significant back pain initially I was ordering the CAT scan and the blood workup but she mentioned that it all resolved and it might have been only because of her blood thinner I did explain to the patient that she will usually do a blood workup and CAT scan to rule out any kidney stone but since the patient does not have any active pain and the fact that the hematuria resolved she is to go back and monitor in case of any symptoms or any back pain she is to come back to the ER The patient is to follow up with primary care physician in next 2-3 days or to return to the emergency department should any of the signs or symptoms worsen or new symptoms develop. The patient agrees with the following Diagnosis and Treatment plan and the patient will be discharged home. Lab Data Labs: Lab Results 06/01/24 Range/Units 10:12 Urine Color Lt. yellow (YELLOW) Urine Clarity Clear (CLEAR) Urine pH 7.0 (5.0-9.0) Ur Specific [place] <=1.005 A (1.005-1.025) Urine Protein Negative (NEG/TRACE) mg/dL Urine Glucose (UA) Negative (NEGATIVE) mg/dL Urine Ketones Negative (NEGATIVE) mg/dL Urine Occult Blood Trace-i (NEGATIVE) Urine Nitrite Negative (NEGATIVE) Urine Bilirubin Negative (NEGATIVE) Urine Urobilinogen 0.2 (0.2-1.0) EU/dL Ur Leukocyte Esterase Negative (NEGATIVE) Urine RBC 0-2 (0-2) #/HPF Urine WBC None seen (NONE SEEN) #/HPF Ur Squamous Epith Cells Rare (NONE/RARE) #/LPF Urine Crystals None seen (None Seen) #/HPF Urine Bacteria Trace A (NONE SEEN) #/HPF Urine Casts None seen (NONE SEEN) #/LPF Urine Mucus None seen (NONE SEEN) Ur Culture Indicated? No Discharge Plan Discharge Chief Complaint: Urogenital-Female Clinical Impression: Hematuria Patient Disposition: Home, Self-Care Time of Disposition Decision: 11:30 Condition: Good Mode of Transportation: Private Vehicle Prescriptions / Home Meds: No Action Eliquis 5 mg tablet 5 mg PO BID atorvastatin 40 mg tablet 40 mg PO .once daily spironolactone 25 mg tablet 12.5 mg PO .once daily carvedilol 3.125 mg tablet 6.25 mg PO BID lorazepam 0.5 mg tablet 0.5 mg PO TID PRN (Reason: anxiety) Print Language: Occitan Instructions: Hematuria (ED) Referrals: TANESHA HOOVER [Primary Care Provider] - 1 week Discharge Date/Time: 06/01/24 11:33
== END 2024-06-01 11:33 | disposition home or self-care (01) ==
PROVIDERS: Emergency Provider Emergency Medicine; PCP Student in an Organized Health Care Education/Training Program
DX: R31.9 Hematuria, unspecified (principal); Z87.891 Personal history of nicotine dependence
CPT/HCPCS: 80053; 81001; 99284

== ENCOUNTER 2024-08-12 12:51 | Outpatient (OUT) | payer MEDICARE, BC, SELFPAY ==
--- NOTE | 2024-08-12 13:00 | CA_ITS ---
Patient Name: HARJIT ULLOA MR#: [id number] : 1950 Exam Date: 08/12/2024 Ordering Doctor: MARJ CARCAMO CNP ECHOCARDIOGRAM REPORT PROCEDURE: CA ECHO DOPPLER COMPLETE INDICATIONS: Atrial fibrillation, mitral valve regurgitation, chronic systolic heart failure COMPARISON: None. DESCRIPTION: COMPLETE ECHOCARDIOGRAM Real-time transthoracic echocardiography with 2D, M-mode, spectral and color flow Doppler performed. QUALITY: Technical quality was suboptimal with the poor definition of endocardium. LEFT VENTRICLE: Normal chamber size. Normal left ventricular wall thickness. LV EF: It was difficult to evaluate cardiac function and due to the quality of the study but probably moderately reduced left ventricular ejection fraction, (35-40%). Recommend to repeat the study with contrast/Lumason DIASTOLIC: Unable to evaluate diastolic function due to paced rhythm. ATRIAL SEPTUM: Visually appears intact LEFT ATRIUM: Severe dilatation. RIGHT ATRIUM: Moderate dilatation. RIGHT VENTRICLE: Normal chamber size. Pacer wire present. TRICUSPID VALVE: Normal mobility and thickness. No stenosis with moderate to severe regurgitation. Doppler studies reveal moderately (45-60) elevated right sided pressures.RVSP 49 mmHg MITRAL VALVE: Mildly thickened with normal mobility. No evidence of mitral valve stenosis. There is no mitral annular calcification. Mild mitral regurgitation. AORTIC VALVE: Normal trileaflet appearance. No visible sclerosis. Normal leaflet mobility. No evidence of aortic valve stenosis. Mild aortic regurgitation. AORTIC ROOT: Normal diameter and appearance. PULMONIC VALVE: Normal thickness and mobility. No stenosis. Moderate regurgitation. PERICARDIUM: No evidence of pericardial effusion. IVC: IVC is dilated (2.3 cm) with no collapse. PLEURA: CONCLUSION: Technically difficult study with suboptimal definition of endocardial next The left ventricle systolic function is probably moderately reduced with ejection fraction 35 to 40%. Recommend to repeat the study with contrast/Lumason Pacemaker wires in the right cardiac chambers Moderate to severe tricuspid regurgitation Mild mitral regurgitation Mild aortic insufficiency Moderate pulmonary insufficiency Moderate pulmonary hypertension, RVSP 49 mmHg Severely dilated left atrium and moderately dilated right atrium Adult Echocardiography Procedure Report Left Ventricle LVEDD (3.7 - 5.6 cm): 4.66 cm LVESD (2.2 - 4.0 cm): 4.04 cm LVIVS thickness (0.6 - 1.2 cm): 0.68 cm LVPW thickness (0.5 - 1.0 cm): 0.88 cm e': E - e': LVOT Max Gradient: 1.28 mm[Hg] LVOT Area (cm2): 0.57 m/s Peak Velocity (LVOT): 0.57 m/s Mean Velocity (LVOT): 0.34 m/s LVOT Diameter 2.06 cm Left Ventricular Ejection Fraction: Left Atrium LA Volume Index (2D A2C): 51.92 ml/m2 Left Atrium Systolic Dimension: 4.00 cm Mitral Valve MV E to A Ratio: 3.59 MV Max Gradient: MV Mean Gradient: Mitral Valve A-Wave Peak Velocity: 0.30 m/s Mitral Valve E-Wave Peak Velocity: 1.07 m/s Cardiovascular Orifice Area: Right Ventricle RV Internal Diastolic Dimension: Aorta AO Root Diam: 2.98 cm Ascending Ao Diam: Aortic Valve AoV Area (Peak Tom): 2.34 cm2, 2.34 cm2 AoV Area (VTI): 2.31 cm2, 2.31 cm2 Deceleration [place]: Pressure Half-Time: Peak Velocity(Antegrade Flow): 0.81 m/s Peak Gradient(Antegrade Flow): 2.61 mm[Hg] Mean Velocity(Antegrade Flow): 0.51 m/s Mean Gradient(Antegrade Flow): 1.23 mm[Hg] Velocity Time Integral: 16.91 cm Tricuspid Valve Peak Velocity (Regurgitant Flow): 2.93 m/s, 2.60 m/s, 2.50 m/s Peak Velocity: Pulmonic Valve Mean Gradient: 1.15 mm[Hg] Mean Velocity: 0.49 m/s Peak Velocity: 0.85 m/s, 0.79 m/s Peak Gradient: 2.50 mm[Hg], 2.88 mm[Hg] Right Atrium Right Atrium Systolic Pressure: 57.64 ml, 57.64 ml Dictated by: Russel Nolasco MD on 08/12/2024 at 19:16 Approved by: Russel Nolasco MD on 08/12/2024 at 19:27
== END 2024-08-12 12:52 | disposition home or self-care (01) ==
LOC: CARD 12:51
PROVIDERS: PCP Student in an Organized Health Care Education/Training Program; Visit Provider Nurse Practitioner Family
DX: I48.0 Paroxysmal atrial fibrillation (principal); I34.0 Nonrheumatic mitral (valve) insufficiency; I50.22 Chronic systolic (congestive) heart failure
CPT/HCPCS: 93306

== ENCOUNTER 2024-10-21 13:39 | Outpatient (OUT) | payer MEDICARE, BC, SELFPAY ==
--- NOTE | 2024-10-21 14:00 | CA_ITS ---
Patient Name: HARJIT ULLOA MR#: [id number] : 1950 Exam Date: 10/21/2024 Ordering Doctor: MARJ CARCAMO CNP ECHOCARDIOGRAM REPORT PROCEDURE: CA ECHO DOPPLER COMPLETE INDICATIONS: Mitral regurgitation, pacemaker COMPARISON: None. DESCRIPTION: COMPLETE ECHOCARDIOGRAM Real-time transthoracic echocardiography with 2D, M-mode, spectral and color flow Doppler performed. QUALITY: Technical quality was good. LEFT VENTRICLE: Normal chamber size. Normal left ventricular wall thickness. LV EF: Moderately reduced left ventricular ejection fraction, (35-40%). DIASTOLIC: Grade III diastolic dysfunction. ATRIAL SEPTUM: Visually appears intact. LEFT ATRIUM: Severe dilatation. RIGHT ATRIUM: Severe dilatation. RIGHT VENTRICLE: Normal chamber size. Normal systolic function. Pacer wire present. TRICUSPID VALVE: Normal mobility and thickness. No stenosis with at least moderate regurgitation. Doppler studies reveal mildly (35-45) elevated right sided pressures. RVSP 40 mmHg MITRAL VALVE: Mildly thickened with normal mobility. No evidence of mitral valve stenosis. There is no mitral annular calcification. Moderate to severe eccentric mitral regurgitation with posteriorly directed jet. AORTIC VALVE: Normal trileaflet appearance. No visible sclerosis. Normal leaflet mobility. No evidence of aortic valve stenosis. Mild aortic regurgitation. AORTIC ROOT: Normal diameter and appearance. PULMONIC VALVE: Normal thickness and mobility. No stenosis. Mild regurgitation. PERICARDIUM: No evidence of pericardial effusion. IVC: Collapses with inspirations. IVC is normal in size. PLEURA: CONCLUSION: 1. The left ventricle is normal in size and exhibits moderately reduced systolic function. LVEF is estimated at 35 to 40%. 2. Normal right ventricular size and systolic function. 3. Severe biatrial dilatation. 4. Moderate to severe eccentric mitral regurgitation with posteriorly directed jet. 5. At least moderate tricuspid regurgitation. 6. Mildly elevated right-sided pressures. RVSP is 40 mmHg. 7. A transesophageal echo is recommended for better assessment of the valvular regurgitation. Adult Echocardiography Procedure Report Left Ventricle LVEDD (3.7 - 5.6 cm): 4.74 cm LVESD (2.2 - 4.0 cm): 4.24 cm LVIVS thickness (0.6 - 1.2 cm): 0.65 cm LVPW thickness (0.5 - 1.0 cm): 0.88 cm e': 0.10 m/s E - e': 9.78 LVOT Max Gradient: 1.51 mm[Hg] LVOT Area (cm2): 0.61 m/s Peak Velocity (LVOT): 0.61 m/s Mean Velocity (LVOT): 0.43 m/s LVOT Diameter 2.16 cm Left Atrium LA Volume Index (2D A2C): 64.74 ml/m2 Left Atrium Systolic Dimension: 3.89 cm Mitral Valve MV E to A Ratio: 2.88 Mitral Valve A-Wave Peak Velocity: 0.35 m/s Mitral Valve E-Wave Peak Velocity: 1.01 m/s Right Ventricle Aorta AO Root Diam: 2.78 cm Aortic Valve AoV Area (Peak Tom): 2.18 cm2, 2.18 cm2 AoV Area (VTI): 1.94 cm2, 1.94 cm2 Peak Velocity(Antegrade Flow): 1.03 m/s Peak Gradient(Antegrade Flow): 4.23 mm[Hg] Mean Velocity(Antegrade Flow): 0.70 m/s Mean Gradient(Antegrade Flow): 2.16 mm[Hg] Velocity Time Integral: 21.32 cm Tricuspid Valve Peak Velocity (Regurgitant Flow): 2.94 m/s, 3.03 m/s, 2.48 m/s Pulmonic Valve Peak Gradient: 2.02 mm[Hg], 1.63 mm[Hg], 29.61 mm[Hg] Right Atrium Right Atrium Systolic Pressure: 98.51 ml, 98.51 ml Dictated by: Rafael Robins M.D. on 10/21/2024 at 17:31 Approved by: Rafael Robins M.D. on 10/21/2024 at 17:36
== END 2024-10-21 13:40 | disposition home or self-care (01) ==
LOC: CARD 13:40
PROVIDERS: PCP Student in an Organized Health Care Education/Training Program; Visit Provider Nurse Practitioner Family
DX: I34.0 Nonrheumatic mitral (valve) insufficiency (principal); I36.1 Nonrheumatic tricuspid (valve) insufficiency
CPT/HCPCS: 93306

== ENCOUNTER 2025-01-19 02:42 | Emergency (ER) | payer MEDICARE, BC, SELFPAY ==
[2025-01-19] VITALS (22 sets, daily range): BP systolic 128–165; BP diastolic 61–75; PULSE 70–74; O2SAT 96–100
--- OUTSIDE RECORDS SUMMARY | 2025-01-19 02:51 | XMS_ITS | CCD ---
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 Name Role Phone Peggy Nazario Primary Care Physician Micheilne Sorto MD Unavailable Johan Henriquez MD Unavailable [phone] Peggy Nazario Primary Care Provider Peggy Nazario MD Unavailable [phone] Peggy Nazario MD Primary Care Provider [phone] Alea Harley MD Unavailable Alea Harley MD Unavailable Hannah Brian Primary Care Physician Peggy Nazario Primary Care Provider [phone] Johan HENRIQUEZ Admitting Unavailable Johan HENRIQUEZ Consulting Unavailable Johan HENRIQUEZ Attending Unavailable Johan HENRIQUEZ Referring Unavailable Johan HENRIQUEZ Consulting Unavailable Johan HENRIQUEZ Consulting Unavailable Hannah Brian Admitting Unavailable Hannah Brian Attending Unavailable Hannah Brian Referring Unavailable MARCO YAO Admitting Unavailable MARCO YAO Attending Unavailable Nahid SERRATO Attending Unavailable Eb Goff Consulting Unavaila DO Noman Cooper Admitting UnavailMD Eb Walter Consulting Unava ilable Eb Goff Consulting Unavaila ble [facility] Cardio, XXXX Consulting Unavailable Koby Masterson Attending Unavailable Micheline BROOKS Attending Unavailable Micheline BROOKS Referring Unavailable Micheline BROOKS Attending Unavailable Jeff Cross Attending Unavailable DO Parveen Ayers SElise Attending Unavailable DO Parveen Ayers SElise Attending Unavailable Koby Masterson Attending Unavailable Jayson Calloway Attending Unavailable NONE, XXXX Referring Unavailable Johan HENRIQUEZ Admitting Unavailable Johan HENRIQUEZ Attending Unavailable MARCO YAO Attending Unavailable MARCO YAO Admitting Unavailable AMINA PETERSEN Admitting Unavailable DAWSON PANIAGUA Attending Unavailable ALEA HARLEY F Referring Unavailable NAZARIO, [facility] Primary Care Unavailabl e VASAVADA, RAPHAEL P Referring Unavailable VASAVADA, RAPHAEL P Attending Unavailable NAZARIO, [facility] Primary Care Unavailabl e NAZARIO, [facility] Primary Care Unavailabl e HAMMER, ALEA F Referring Unavailable NAZARIO, [facility] Primary Care Unavailabl e NITHYA, MICHELINE Referring Unavailable NAZARIO, [facility] Primary Care Unavailabl e VASAVADA, RAPHAEL P Attending Unavailable SELF Referring Unavailable ALEA HARLEY F Referring Unavailable NAZARIO, [facility] Primary Care Unavailabl e ANA RIVAS Attending Unavailable NAZARIO, [facility] Primary Care Unavailabl e NAZARIO, [facility] Primary Care Unavailabl e NITHYA, MICHELINE Attending Unavailable NITHYA, MICHELINE Referring Unavailable YECENIA GLEZ S Admitting Unavailable NAZARIO, [facility] Primary Care Unavailabl e YECENIA GLEZ S Attending Unavailable NAZARIO, [facility] Primary Care Unavailabl e NITHYA, MICHELINE Referring Unavailable NITHYA, MICHELINE Referring Unavailable NAZARIO, [facility] Primary Care Unavailabl e NITHYA, MICHELINE Referring Unavailable GIANNI VILLALBA Attending Unavailable NAZARIO, [facility] Primary Care Unavailabl e NITHYA, MICHELINE Referring Unavailable NAZARIO, [facility] Primary Care Unavailabl e NAZARIO, [facility] Primary Care Unavailabl e VASAVADA, RAPHAEL P Referring Unavailable VASAVADA, RAPHAEL P Attending Unavailable NITHYA, MICHELINE Referring Unavailable ALEA HARLEY F Attending Unavailable NAZARIO, [facility] Primary Care Unavailabl e NAZARIO, [facility] Primary Care Unavailabl e VASAVADA, RAPHAEL P Attending Unavailable SELF Referring Unavailable Hannah Brian MD Primary Care Provider Peggy Nazario MD Primary Care Provider Hannah Brian MD Primary Care Provider SHERLYN SHINE Attending Unavailable HANNAH BRIAN Attending Unavailable SHERLYN SHINE Attending Unavailable SNEHAL, HANNAH De Leon Attending Unavailable SNEHALHANNAH Attending Unavailable SNEHAL, HANNAH De Leon Attending Unavailable SNEHAL, HANNAH De Leon Attending Unavailable SNEHAL, HANNAH De Leon Attending Unavailable FÁTIMA, SHERLYN Patino Attending Unavailable RODOLFO BOO Attending Unavailable SHELLEY AVILES Attending Unavailab le MAXIMILIAN, MARCO Referring Unavailable ROGERRADHA Referring Unavailable MOUKARBEL, NEREYDA Referring Unavailable MOUKARBEL, NEREYDA Referring Unavailable MAXIMILIAN, MARCO Attending Unavailable MAXIMILIAN, MARCO Attending Unavailable MAXIMILIAN, MARCO Admitting Unavailable MAXIMILIAN, MARCO Attending Unavailable MAXIMILIAN, MARCO Referring Unavailable MAXIMILIAN, MARCO Referring Unavailable MAXIMILIAN, MARCO Referring Unavailable MAXIMILIAN, MARCO Referring Unavailable MAXIMILIAN, MARCO Referring Unavailable CARLOS ALBERTOMARJ Attending Unavailable MOUKARBEL, NEREYDA Attending Unavailable MOUKARBEL, NEREYDA Attending Unavailable MAXIMILIAN, MARCO Referring Unavailable DEISYRADHA Attending Unavailable ROGER, RADHA Referring Unavailable MAXIMILIAN, MARCO Referring Unavailable MAXIMILIAN, MARCO Attending Unavailable MOUKARBEL, NEREYDA Admitting Unavailable MOUKARBEL, NEREYDA Attending Unavailable MAXIMILIAN, MARCO Admitting Unavailable MAXIMILIAN, MARCO Attending Unavailable MAXIMILIAN, MARCO Referring Unavailable Allergies Allergy Classification Reported Allergen(s) Allergy Type Date of Onset Reaction(s) Facility (20 sources) Cephalexin; Translations: [cephalexin] Drug Allergy 3 GI intolerance, Unknown [facility] (20 sources) Egg; Translations: [Eggs] Food allergy Unknown (qualifier value) [facility] (20 sources) Meperidine; Translations: [meperidine] Drug Allergy 0 Syncope (disorder), Other: See Comments [facility] (20 sources) Morphine; Translations: [morphine] Drug Allergy 3 Unknown [facility] (20 sources) Sulfonamides (Antibiotic); Translations: [sulfa drugs] Drug allergy Nausea [facility] (2 sources) Aspirin; Translations: [ASPIRIN] Drug Allergy 0 Other: See Comments [facility] (9 sources) Latex; Translations: [LATEX] Drug Intolerance 3 Rash, Hives [facility] (20 sources) Aluminum aspirin Drug Allergy 0 [facility] (20 sources) Amoxicillin; Translations: [AMOXICILLIN] Drug Allergy 3 Diarrhea [facility] (20 sources) Erythromycin; Translations: [ERYTHROMYCIN] Drug Allergy 3 Unknown [facility] (20 sources) Latex Propensity to adverse reactions 3 Hives, Rash [facility] (20 sources) Meperidine Drug Allergy 3 Unknown [facility] (20 sources) Sulfonamides (Antibiotic) Drug Allergy 3 GI intolerance, Intolerance [facility] (20 sources) WHEAT DEXTRIN; Translations: [WHEAT BRAN] Drug Allergy 3 [facility] (20 sources) WHEAT DEXTRIN Drug Allergy 3 [facility] (5 sources) Eggs Or Egg-Derived Products Drug Allergy 3 [facility] (15 sources) egg extract; Translations: [EGG] Drug Allergy 4 Intolerance, GI Upset [facility] (1 source) Meperidine; Translations: [Demerol HCl] Drug Allergy [facility] Rep[facility] (2 sources) Sulfonamides (Antibiotic); Translations: [SULFA (SULFONAMIDE ANTIBIOTICS)] Propensity to adverse reactions to drug (disorder) 3 [facility] Repository (20 sources) empagliflozin; Translations: [EMPAGLIFLOZIN] Drug Allergy 4 Angioedema [facility] Work Phone: (20 sources) Egg-Derived Products Drug Allergy 3 [facility] (20 sources) Amiodarone; Translations: [AMIODARONE] Drug Allergy 4 Nausea And Vomiting [facility] (20 sources) Valsartan; Translations: [VALSARTAN] Propensity to adverse reactions 4 [facility] (1 source) EGG DERIVED; Translations: [EGG DERIVED] Propensity to adverse reactions to drug (disorder) 3 [facility] Repository Medications Current Medications Medication Drug Class(es) Dates Sig (Normalized) Sig (Original) amoxicillin 500 mg / clavulanate 125 mg oral tablet (2 sources) Penicillin-class Antibacterial Start: 07-19-2023 End: 08-02-2023 Augmentin 500 mg-125 mg Tab 1 tab(s), Oral, q24hr for 14 day(s), 14 tab(s), Refill(s) 0, [facility] #[id number], 165, cm, 07/19/23 15:21:00 EST, Height/Length Dosing, 54.4, kg, 07/19/23 15:21:00 EST, Weight Dosing Start Date: 07/19/23 Stop Date: 08/02/23 Status: Ordered apixaban 5 mg oral tablet (20 sources) Factor Xa Inhibitor Start: 07-11-2023 End: 08-31-2023 take 1 tablet by mouth in the morning Eliquis 5 MG tablet Take 5 mg by mouth in the morning and 5 mg before bedtime. 07/11/2023 Active Start: 07-11-2023 take 1 tablet by antonio twice daily Eliquis 5 mg oral tablet 5 mg = 1 tab(s), Oral, BID, # 60 tab(s), Refills(s) 0, Pharmacy: [facility] #[id number], 165, cm, 07/02/23 21:30:00 EST, Height/Length Dosing, 55.7, kg, 07/02/23 21:30:00 EST, Weight Dosing Start Date: 07/11/23 Status: Ordered Start: 07-11-2023 take 1 tablet by antonio twice daily Eliquis 5 mg oral tablet 5 mg = 1 tab(s), Oral, BID, # 60 tab(s), Refills(s) 0, Pharmacy: [facility] #[id number], 165, cm, 07/02/23 21:30:00 EST, Height/Length Dosing, 55.7, kg, 07/02/23 21:30:00 EST, Weight Dosing Start Date: 07/11/23 Status: Ordered Start: 07-11-2023 take 1 tablet by antonio twice daily Eliquis 5 mg oral tablet 5 mg = 1 tab(s), Oral, BID, # 60 tab(s), Refills(s) 0, Pharmacy: [facility] #[id number], 165, cm, 07/02/23 21:30:00 EST, Height/Length Dosing, 55.7, kg, 07/02/23 21:30:00 EST, Weight Dosing Start Date: 07/11/23 Status: Ordered Comment on above: Take 1 tablet by antonio th two times a day. Take 5 mg by mouth t wo times a day. atorvastatin 40 mg oral tablet (20 sources) HMG-CoA Reductase Inhibitor Start: 07-05-2023 End: 08-25-2024 take 1 tablet by mouth once daily Lipitor 40 MG tablet Take 40 mg by mouth Daily 07/05/2023 Active Comment on above: Take 1 tablet by antonio th daily at bedtime. Take 40 mg by mouth once daily. carvedilol 3.125 mg oral tablet (20 sources) alpha-Adrenergic Yolette, beta-Adrenergic Yolette Start: 07-03-2024 carvedilol (Coreg) 6.25 MG tablet 07/03/2024 Active Start: 11-02-2023 End: 11-01-2024 take 1 tablet by mouth in the morning carvedilol (Coreg) 3.125 MG tablet Take 3.125 mg by mouth in the morning and 3.125 mg in the evening. Take with meals. 08/20/2024 Active Start: 08-31-2023 take 1 tablet by antonio th twice daily at mealtime carvedilol (COREG) 12.5 mg tablet Take 1 tablet by mouth two times a day with meals. 180 tablet 1 08/31/2023 Active Start: 07-05-2023 End: 09-01-2023 take 1 tablet by mouth in the morning carvedilol (Coreg) 3.125 MG tablet Take 3.125 mg by mouth in the morning and 3.125 mg in the evening. Take with meals. 07/05/2023 09/01/2023 Discontinued (Alternate therapy) Start: 07-05-2023 End: 10-19-2023 take 1 tablet by mouth twice daily carvedilol 3.125 mg Tab 3.125 mg = 1 tab(s), Oral, BID, X 14 day(s), # 28 tab(s), Refills(s) 0, Pharmacy: [facility] #[id number], 165, cm, 10/05/23 18:07:00 EST, Height/Length [...] th two times a day with meals. dexamethasone 1 mg/ml / neomycin 3.5 mg/ml / polymyxin b 79529 unt/ml ophthalmic suspension (14 sources) Aminoglycoside Antibacterial, Polymyxin-class Antibacterial, Corticosteroid Start: 10-30-2024 aqpukpid-geutnhdvi-kq xAMETHasone (Maxitrol) 3.5-95424-3.1 ophthalmic suspension 10/30/2024 Active Start: 10-30-2024 take 1 drop(s) into the eye(s) four times daily kishjqlu-bekmkxgwq-celWTTNAcmjkq (Maxitr ol) 3.5-69715-7.1 ophthalmic suspension INSTILL 1 DROP into affected eye FOUR TIMES DAILY FOR 14 DAYS 10/30/2024 Active dicyclomine hydrochloride 10 mg oral capsule (1 source) Anticholinergic Start: 07-01-2023 End: 07-08-2023 take 1 capsule by mouth four times daily Bentyl 10 mg Cap 10 mg = 1 cap(s), Oral, QID, X 7 day(s), # 14 cap(s), Refills(s) 0, Pharmacy: [facility] #[id number], 165, cm, 06/30/23 19:37:00 EST, Height/Length Dosing, 55.7, kg, 06/30/23 19:37:00 EST, Weight Dosing Start Date: 07/01/23 Stop Date: 07/08/23 Status: Ordered estradiol 0.1 mg/ml vaginal cream (13 sources) Estrogen Start: 04-26-2023 Estrace 0.1 mg /g Cream 0.5 gm, Vaginal, MonFri, 42.5 gm, Refill(s) 6 Start Date: 04/26/23 Status: Ordered Start: 03-20-2023 Estrace 0.1 mg /g Cream 1 gm, Vaginal, Once a day (at bedtime), 42.5 gm, Refill(s) 6, [facility], 165.1, cm, 01/28/23 21:34:00 EDT, Height/Length Dosing, 54.5, kg, 01/28/23 21:34:00 EDT, Weight Dosing Start Date: 03/20/23 Status: Ordered Start: 03-03-2022 estradiol 0.1 mg/g vaginal cream 1 gm, Vaginal, MonFri, # 42.5 gm, Refills(s) 6, Pharmacy: [facility], 165, cm, 03/03/22 [...] MonFri, # 42.5 gm, Refills(s) 6, Pharmacy: [facility], 165, cm, 02/23/21 [...] MonFri, # 42.5 gm, Refills(s) 6, Pharmacy: [facility], 165, cm, 03/03/22 10:04:00 EDT, Height/Length Dosing, 54, kg, 07/21/22 10:04:00 EDT, Weight Dosing Start Date: 03/03/22 Status: Ordered Start: 02-26-2021 estradiol 0.1 mg/g vaginal cream 1 gm, Vaginal, MonFri, # 42.5 gm, Refills(s) 6, Pharmacy: [facility], 165, cm, 02/23/21 13:24:00 EDT, Height/Length Dosing, 54, kg, 02/23/21 13:24:00 EDT, Weight Dosing Start Date: 02/26/21 Status: Ordered famotidine 40 mg oral tablet (20 sources) Histamine-2 Receptor Antagonist Start: 07-03-2024 End: 07-03-2025 take 1 tablet by mouth at bedtime famotidine (Pepcid) 40 MG tablet Indications: Gastroesophageal reflux disease without esophagitis Take 1 tablet (40 mg) by mouth at bedtime 30 tablet 11 07/03/2024 07/03/2025 Active lactulose 667 mg/ml oral solution (1 source) Osmotic Laxative Start: 11-22-2023 End: 11-27-2023 take 13.333 g by mouth once daily lactulose 10 g/15 mL Oral Syrup 13.333 gm = 20 mL, Oral, Daily, X 5 day(s), # 100 mL, Refills(s) 0, Pharmacy: [facility] #[id number], 165, cm, 11/22/23 16:28:00 EDT, Height/Length Dosing, 49.8, kg, 11/22/23 16:28:00 EDT, Weight Dosing Start Date: 11/22/23 Stop Date: 11/27/23 Status: Ordered lidocaine hydrochloride 0.02 mg/mg topical gel (1 source) Antiarrhythmic, Amide Local Anesthetic Start: 06-27-2024 End: 07-27-2024 lidocaine urojet 2 % 11 mL topical gel (GLYDO) lisinopril 10 mg oral tablet (11 sources) Angiotensin Converting Enzyme Inhibitor Start: 09-26-2023 End: 12-25-2023 take 0.5 tablet by mouth once daily lisinopril (ZESTRIL) 10 mg tablet Indications: Non-rheumatic mitral regurgitation , Persistent atrial fibrillation (HCC) , Non-ischemic cardiomyopathy (HCC) , Chronic HFrEF (heart failure with reduced ejection fraction) ([facility]) take 1/2 tablet by mouth once daily 45 tablet 12/22/2023 Active Comment on above: Take 0.5 tablets by mouth once daily. LORazepam 0.5 mg oral tablet (20 sources) Benzodiazepine Start: 01-13-2025 take 1 tablet by mouth every eight hours as needed for anxiety and anxiety and anxiety LORazepam (Ativan) 0.5 MG tablet Indications: Anxiety Take 1 tablet (0.5 mg) by mouth every 8 (eight) hours if needed for anxiety 90 tablet 01/13/2025 Active Start: 11-20-2024 End: 01-13-2025 take 1 tablet by mouth every eight hours as needed for anxiety and anxiety and anxiety LORazepam (Ativan) 0.5 MG tablet Indications: Anxiety TAKE 1 TABLET BY MOUTH EVERY 8 HOURS NEEDED FOR ANXIETY 90 tablet 12/17/2024 01/13/2025 Discontinued (Reorder) Start: 11-20-2024 take 1 tablet by antonio th every eight hours as needed for anxiety and anxiety and anxiety LORazepam (Ativan) 0.5 MG tablet Indications: Anxiety Take 1 tablet (0.5 mg) by mouth every 8 (eight) hours if needed for anxiety Do not start before November 20, 2024. 90 tablet 11/20/2024 Active Start: 10-21-2024 End: 11-18-2024 take 1 tablet by mouth every eight hours as needed for anxiety and anxiety and anxiety LORazepam (Ativan) 0.5 MG tablet Indications: Anxiety Take 1 tablet (0.5 mg) by mouth every 8 (eight) hours if needed for anxiety 90 tablet 10/21/2024 11/18/2024 Discontinued Start: 09-23-2024 take 1 tablet by antonio th every eight hours as needed for anxiety and anxiety and anxiety LORazepam (Ativan) 0.5 MG tablet Indications: Anxiety Take 1 tablet (0.5 mg) by mouth every 8 (eight) hours if needed for anxiety 90 tablet 09/23/2024 Active Start: 08-25-2024 take 1 tablet by antonio th every eight hours as needed for anxiety and anxiety and anxiety LORazepam (Ativan) 0.5 MG tablet Indications: Anxiety Take 1 tablet (0.5 mg) by mouth every 8 (eight) hours if needed for anxiety Do not start before August 25, 2024. 90 tablet 08/25/2024 Active Start: 08-25-2024 take 1 tablet by antonio th every eight hours as needed for anxiety and anxiety and anxiety LORazepam (Ativan) 0.5 MG tablet Indications: Anxiety Take 1 tablet (0.5 mg) by mouth every 8 (eight) hours if needed for anxiety Do not start before August 25, 2024. 90 tablet 08/25/2024 Active Start: 06-25-2024 End: 08-20-2024 take 1 tablet by mouth every eight hours as needed for anxiety and anxiety and anxiety LORazepam (Ativan) 0.5 MG tablet Indications: Anxiety TAKE 1 TABLET BY MOUTH EVERY 8 HOURS NEEDED FOR ANXIETY 90 tablet 07/23/2024 08/20/2024 Discontinued Start: 07-10-2023 End: 09-15-2023 take 1 tablet by mouth every six hours for anxiety and anxiety LORazepam (Ativan) 1 MG tablet Indications: Anxiety Take 1 tablet (1 mg) by mouth every 6 (six) hours. 120 tablet 1 07/10/2023 09/15/2023 Discontinued Start: 08-03-2011 End: 08-28-2023 LORazepam (ATIVAN) 0.5 [...] anxiety. Take 0.5 mg by mouth . nitrofurantoin, macrocrystals 25 mg / nitrofurantoin, monohydrate 75 mg oral capsule (3 sources) Nitrofuran Antibacterial Start: End: take 1 capsule by mouth in the morning nitrofurantoin, macrocrystal-mono hydrate, (Macrobid) 100 MG capsule Indications: Dysuria , Urinary frequency Take 1 capsule (100 mg) by mouth in the morning and 1 capsule (100 mg) before bedtime. Do all this for 5 days. 10 capsule 08/12/2024 08/17/2024 Active Start: 10-15-2023 End: 10-16-2023 nitrofurantoin monohydrate a nd macrocrystal 100 mg cap(s) (MACROBID) omeprazole 40 mg delayed release oral capsule (5 sources) Proton Pump Inhibitor Start: 09-12-2023 End: 09-11-2024 take 1 capsule by mouth before mealtime omeprazole (PriLOSEC) [address] capsule Indications: Gastroesophageal reflux disease without esophagitis Take 1 capsule (40 mg) by mouth in the morning. Take before meals. Do not crush or chew.. 30 capsule 11 09/12/2023 09/11/2024 Active ondansetron 4 mg disintegrating oral tablet (20 sources) Serotonin-3 Receptor Antagonist Start: 07-01-2023 End: 12-04-2023 take 1 tablet by mouth every eight hours for nausea ondansetron ODT (Zofran-ODT) 4 MG disintegrating tablet Indications: Gastroesophageal reflux disease with esophagitis, unspecified whether hemorrhage Take 1 tablet (4 mg) by mouth every 8 (eight) hours if needed for vomiting or nausea 20 tablet 12/04/2023 Active Comment on above: DISSOLVE 1 TABLET ON THE TONGUE EVERY 8 HOURS pantoprazole 40 mg delayed release oral tablet (11 sources) Proton Pump Inhibitor Start: 09-26-2023 End: 12-25-2023 take 1 tablet by mouth once daily pantoprazole DR (PROTONIX) 40 mg tablet Indications: Non-rheumatic mitral regurgitation , Persistent atrial fibrillation (HCC) , Non-ischemic cardiomyopathy (HCC) , Chronic HFrEF (heart failure with reduced ejection fraction) (HCC) take 1 tablet by mouth every day 90 tablet 12/22/2023 Active Comment on above: Take 1 tablet by antonio th once daily. polyethylene glycol 3350 67467 mg powder for oral solution (20 sources) Osmotic Laxative Start: 08-31-2023 polyethylene glycol 3350 17 gram/dose powder Take 17 g by mouth once daily as needed. Dissolve dose in 4 - 8 ounces of liquid and take as directed. 510 g 1 08/31/2023 Active Start: 07-05-2023 take 17 g by mouth once daily polyethylene glycol 3350 17 gram packet 17 gm, Oral, Daily, # 255 gm, Refills(s) 0, Pharmacy: [facility] #[id number], 165, cm, 07/02/23 21:30:00 EST, Height/Length Dosing, 55.7, kg, 07/02/23 21:30:00 EST, Weight Dosing Start Date: 07/05/23 Status: Ordered Comment on above: Take 17 g by mouth o nce daily as needed. Dissolve dose in 4 - 8 ounces of liquid and take as directed. prednisoLONE acetate 10 mg/ml ophthalmic suspension (20 sources) Corticosteroid Start: 07-31-2024 prednisoLONE acetate (Pred-Forte) 1 % ophthalmic suspension 07/31/2024 Active Start: 07-31-2024 take 1 drop(s) into the eye(s) three times daily prednisoLONE acetate (Pred-Forte) 1 % ophthalmic suspension Instill 1 drop into left eye three times a day as directed 07/31/2024 Active predniSONE 20 mg oral tablet (3 sources) Start: 11-18-2024 End: 11-23-2024 take 2 tablets by mouth once daily predniSONE (Deltasone) 20 MG tablet Indications: Acute cough Take 2 tablets (40 mg) by mouth Daily for 5 days 10 tablet 11/18/2024 11/23/2024 Active spironolactone 25 mg oral tablet (20 sources) Aldosterone Antagonist Start: 08-31-2023 End: 09-05-2024 take 0.5 tablet by mouth once daily spironolactone (ALDACTONE) 25 mg tablet Take a half tablet by mouth once daily. 30 tablet 1 08/31/2023 Active spironolactone ( Aldactone) 25 MG tablet Take 12.5 mg by mouth in the morning and 12.5 mg before bedtime. Active Comment on above: Take a half tablet b y mouth once daily. Tobramycin (1 source) Aminoglycoside Antibacterial Start: 2 End: 2 take 1 drop(s) into the eye(s) four times daily tobramycin ophthalmic 0.3% solution 1 drop(s), Eye-Both, QID for 7 day(s), 5 mL, Refill(s) 0, [id number], 165, cm, 12/24/21 17:41:00 EDT, Height/Length Dosing, 54, kg, 12/24/21 17:41:00 EDT, Weight Dosing Start Date: 12/24/21 Stop Date: 12/31/21 Status: Ordered Zofran ODT 4 mg Tab-Dis (12 sources) Start: take 1 tablet by mouth every eight hours Zofran ODT 4 mg Tab-Dis 4 mg = 1 tab(s), Oral, q8hr, # 12 tab(s), Refills(s) 0, Pharmacy: [facility] #[id number], 165, cm, 06/30/23 19:37:00 EST, Height/Length Dosing, 55.7, kg, 06/30/23 19:37:00 EST, Weight Dosing Start Date: 07/01/23 Status: Ordered Completed/Discontinued Medications Medication Drug Class(es) Dates Sig (Normalized) Sig (Original) aspirin 81 mg delayed release oral tablet (14 sources) Platelet Aggregation Inhibitor, Nonsteroidal Anti-inflammatory Drug Start: 07-05-2023 End: 09-06-2023 take 1 tablet by mouth once aspirin 81 MG EC tablet Take 81 mg by mouth 1 (one) time. 07/05/2023 09/06/2023 Discontinued Comment on above: Take 81 mg by mouth once daily. azithromycin 250 mg oral tablet (12 sources) Macrolide Antimicrobial Start: 11-18-2024 End: 12-17-2024 azithromycin (Zithromax) 250 MG tablet Indications: Acute cough Take 2 tabs PO x 1 day then 1 tab PO daily x 4 days 6 tablet 11/25/2024 12/17/2024 Discontinued ciprofloxacin 500 mg oral tablet (7 sources) Quinolone Antimicrobial Start: 04-26-2023 Cipro 500 mg Tab 500 mg = 1 tab(s), Oral, As Directed, Patient to take 1 tab the day before procedure and the 2nd tab the day of procedure once completed, # 2 tab(s), Refills(s) 0, Pharmacy: [facility] #[id number], 165, cm, 04/26/23 15:23:00 EDT, Height/Length Dosing, 54.7, kg, 04/26/23 15:23:00 EDT, Weight Dosing Start Date: 04/26/23 Status: Ordered Start: 10-14-2022 take 1 tablet by antonio once daily Cipro 500 mg Tab 500 mg = 1 tab(s), Oral, Daily, Take 1 tablet the day before the procedure and 1 tablet after the procedure, # 2 tab(s), Refills(s) 0, Pharmacy: [facility], 165, cm, 10/03/22 14:34:00 EST, Height/Length Dosing, 54.7, kg, 10/03/22 14:34:00 E... Start Date: 10/14/22 Status: Ordered Start: 03-03-2022 take 1 tablet by antonio once daily Cipro 500 mg Tab 500 mg = 1 tab(s), Oral, As Directed, Take 1 tablet day before procedure, and then 1 tablet day of procedure after procedure, # 2 tab(s), Refills(s) 0, Pharmacy: [facility], 165, cm, 03/03/22 10:04:00 EDT, Height/Length Dosing, 54, kg, 02/12... Start Date: 03/03/22 Status: Ordered digoxin 0.125 mg oral tablet (20 sources) Cardiac Glycoside Start: 09-06-2023 End: 07-01-2024 take 0.5 tablet by mouth in the morning, then take 0.5 tablet by mouth once daily digoxin (Lanoxin) 125 MCG tablet Indications: Systolic congestive heart failure, unspecified HF chronicity (CMS/HCC) Take 0.5 tablets (62.5 mcg) by mouth in the morning. Take 1/2 a tab daily. 45 tablet 09/06/2023 07/01/2024 Discontinued (Therapy completed) Start: 08-31-2023 digoxin (LANOX IN) 125 mcg (0.125 mg) tablet Take HALF tablet by mouth daily (not one complete tablet) 30 tablet 1 08/31/2023 Active Start: 07-05-2023 End: 09-01-2023 digoxin (Lanoxin) 125 MCG ta blet Take 125 mcg by mouth. 07/05/2023 09/01/2023 Discontinued (Alternate therapy) Start: 07-05-2023 take 1 tablet by antonio th once daily digoxin 125 mcg (0.125 mg) Tab 125 mcg = 1 tab(s), Oral, Daily, # 60 tab(s), Refills(s) 0, Pharmacy: [facility] #[id number], 165, cm, 07/02/23 21:30:00 EST, Height/Length Dosing, 55.7, kg, 07/02/23 21:30:00 EST, Weight Dosing Start Date: 07/05/23 Status: Ordered Comment on above: Take HALF tablet by mouth daily (not one complete tablet) Take 125 mcg by mout h once daily. furosemide 40 mg oral tablet (14 sources) Loop Diuretic Start: End: take 1 tablet by mouth in the morning furosemide (Lasix) 40 MG tablet Take 40 mg by mouth in the morning. 07/05/2023 09/12/2023 Discontinued Comment on above: Take 40 mg by mouth once daily. loperamide hydrochloride 2 mg oral capsule (2 sources) Opioid Agonist Start: End: take 2 capsules by mouth once loperamide [...] Take one hour after last bowel movement losartan potassium 25 mg oral tablet (14 sources) Angiotensin 2 Receptor Yolette Start: End: take 1 tablet by mouth in the morning losartan (Cozaar) 25 MG tablet Take 25 mg by mouth in the morning. 07/05/2023 09/01/2023 Discontinued (Discontinued by another clinician) Comment on above: Take 25 mg by mouth once daily. metoprolol 1 mg/mL Inj (1 source) Start: End: inject 5 mg intravenously once metoprolol 1 mg/mL Inj 5 mg = 5 mL, Injection, IV Push, Once, Stop date 07/07/23 10:02:18 AM EST, STAT, Start date 07/07/23 9:41:00 AM EST, 07/07/23 9:41:00 EST Start Date: 07/07/23 Stop Date: 07/07/23 Status: Completed penicillin v potassium 250 mg oral tablet (2 sources) End: penicillin V (Veetid) 250 MG tablet Take by mouth 08/11/2023 Discontinued tamsulosin hydrochloride 0.4 mg oral capsule (2 sources) alpha-Adrenergic Yolette Start: 013 End: take 1 capsule by mouth once daily at bedtime tamsulosin 0.4 mg Cp24 Take 1 capsule by mouth daily at bedtime. 30 capsule 3 10/18/2012 08/28/2023 Discontinued (Course of therapy completed) Comment on above: Take 1 capsule by mo uth daily at bedtime. valsartan 80 mg oral tablet (6 sources) Angiotensin 2 Receptor Yolette Start: End: take 1 tablet by mouth once daily valsartan (DIOVAN) 80 mg tablet Take 1 tablet by mouth once daily. 90 tablet 1 08/31/2023 09/26/2023 Discontinued (Course of therapy completed) Comment on above: Take 1 tablet by antonio once daily. Problems Active Problems Problem Classification Problem Date Documented Da te Episodic/Chronic Adjustment disorders (14 sources) Adjustment disorder with mixed anxiety and depressed mood; Translations: [Adjustment disorder with mixed anxiety and depressed mood] Onset: 4 08-29-2023 Chronic Anxiety disorders (20 sources) Anxiety; Translations: [Anxiety disorder] Onset: 3 Resolved: 4 01-23-2019 Chronic Cardiac dysrhythmias (20 sources) Unspecified atrial fibrillation; Translations: [Persistent atrial fibrillation] Onset: 3 Chronic Coagulation and hemorrhagic disorders (2 sources) Thrombophilia; Translations: [Other thrombophilia] 09-26-2023 Chronic Conduction disorders (8 sources) Presence of automatic (implantable) cardiac defibrillator; Translations: [Encounter for adjustment and management of other part of cardiac pacemaker] Onset: 4 Chronic Congestive heart failure; nonhypertensive (10 sources) Acute systolic heart failure; Translations: [Acute systolic (congestive) heart failure] Onset: 3 Resolved: 4 Chronic Coronary atherosclerosis and other heart disease (3 sources) Coronary atherosclerosis; Translations: [Atherosclerotic heart disease of [place] coronary artery without angina pectoris] Onset: 3 Chronic E Codes: Adverse effects of medical drugs (1 source) Adverse reaction to biological substance; Translations: [Adverse effect of unspecified drugs, medicaments and biological substances, initial encounter] Onset: 4 Episodic Esophageal disorders (20 sources) Gastroesophageal reflux disease; Translations: [Gastroesophageal reflux disease without esophagitis] Onset: 3 01-30-2014 Chronic Essential hypertension (20 sources) Essential hypertension; Translations: [Essential (primary) hypertension] Onset: 4 08-27-2023 Chronic Heart valve disorders (20 sources) Non-rheumatic mitral regurgitation ; Translations: [Nonrheumatic mitral (valve) insufficiency] Onset: 3 Chronic Inflammation; infection of eye (except that caused by tuberculosis or sexually transmitteddisease) (1 source) Toxic conjunctivitis; Translations: [Acute toxic conjunctivitis, bilateral] Onset: 2 Episodic Malaise and fatigue (20 sources) Chronic fatigue syndrome; Translations: [Chronic fatigue syndrome] Onset: 3 01-30-2023 Chronic Menopausal disorders (20 sources) Atrophic vaginitis; Translations: [Postmenopausal atrophic vaginitis] Onset: 3 Chronic Nutritional deficiencies (20 sources) Deficiency of macronutrients; Translations: [Unspecified severe protein-calorie malnutrition] Onset: 4 08-30-2023 Chronic Other aftercare (1 source) Long-term current use of drug therapy; Translations: [Other rat exterminator (current) drug therapy] Onset: 3 Episodic Other aftercare (2 sources) Post-discharge follow-up; [...] and ureter, unspecified] Onset: 3 Episodic Other gastrointestinal disorders (3 sources) Constipation, unspecified; Translations: [Constipation, unspecified] Onset: 3 Episodic Other injuries and conditions due to external causes (2 sources) Contusion; Translations: [Other injury of unspecified body region, initial encounter] 11-25-2024 Episodic Other lower respiratory disease (4 sources) Cough; Translations: [Acute cough] 11-18-2024 Episodic Other nervous system disorders (1 source) Tremor; Translations: [Tremor, unspecified] Onset: 4 Episodic Other non-traumatic joint disorders (1 source) Pain of right shoulder joint; Translations: [Pain in right shoulder] Onset: 3 Episodic Other screening for suspected conditions (not mental disorders or infectious disease) (4 sources) Blood chemistry abnormal; Translations: [Other specified abnormal findings of blood chemistry] Onset: 3 Episodic Other upper respiratory disease (20 sources) Seasonal allergy; Translations: [Other seasonal allergic rhinitis] Onset: 3 01-30-2023 Chronic Staci-; endo-; and myocarditis; cardiomyopathy (except that caused by tuberculosis or sexually transmitted disease) (20 sources) Cardiomyopathy; Translations: [Other cardiomyopathies] Onset: 4 08-27-2023 Chronic Peripheral and visceral atherosclerosis (20 sources) Atherosclerosis of aorta; Translations: [Atherosclerosis of aorta] Onset: 8 Resolved: 4 01-30-2023 Chronic Pleurisy; pneumothorax; pulmonary collapse (1 source) Pleural effusion; Translations: [Pleural effusion, not elsewhere classified] Onset: 3 Episodic Prolapse of female genital organs (20 sources) Cystocele; Translations: [Uterovaginal prolapse, unspecified] Onset: 3 08-24-2020 Chronic Residual codes; unclassified (1 source) History of cardioversion; Translations: [Personal history of other medical treatment] 09-26-2023 Episodic Residual codes; unclassified (2 sources) Body mass index 20-24 - normal; Translations: [Body mass index (BMI) 22.0-22.9, adult] 08-12-2024 Episodic Spondylosis; intervertebral disc disorders; other back problems (1 source) Low back pain; Translations: [Low back pain, unspecified] Onset: 3 Episodic Superficial injury; contusion (2 sources) Contusion of forearm; Translations: [Contusion of right forearm, initial encounter] Onset: 2 Episodic Unclassified (20 sources) Finding of sensation of bladder 08-24-2020 Unclassified (2 sources) Longstanding persistent atrial fibrillation; Translations: [Longstanding persistent atrial fibrillation] Onset: 5 Unclassified (2 sources) Other persistent atrial fibrillation; Translations: [Other persistent atrial fibrillation] Onset: 4 Varicose veins of lower extremity (2 sources) Pain due to varicose veins of lower extremity; Translations: [Varicose veins of unspecified lower extremity with pain] Onset: 2 Episodic Viral infection (1 source) Viral disease; Translations: [Viral infection, unspecified] Episodic Past or Other Problems Problem Classification Problem Date Documented Date Episodic/Chronic Abdominal pain (20 sources) Suprapubic pain; Translations: [Abdominal pain] Onset: 04-12-2023 Resolved: 11-09-2023 01-22-2020 Episodic Genitourinary symptoms and ill-defined conditions (20 sources) Delay when starting to pass urine; Translations: [Dysuria] Onset: 09-26-2012 Resolved: 11-09-2023 07-29-2020 Episodic Intestinal obstruction without hernia (20 sources) Intestinal obstruction; Translations: [Unspecified intestinal obstruction, unspecified as to partial versus complete obstruction] Onset: 03-13-2009 03-13-2009 Episodic Miscellaneous mental health disorders (20 sources) Transient insomnia; Translations: [Adjustment insomnia] Onset: 01-30-2023 01-30-2023 Episodic Noninfectious gastroenteritis (20 sources) Acute gastroenteritis; Translations: [Noninfective gastroenteritis and colitis, unspecified] Onset: 04-12-2023 Resolved: 11-09-2023 06-09-2019 Episodic Open wounds of head; neck; and trunk (20 sources) Superficial laceration of face; Translations: [Laceration without foreign body of other part of head, initial encounter] Onset: 04-12-2023 Resolved: 11-09-2023 01-27-2018 Episodic Other aftercare (20 sources) Long-term 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; Translations: [assisted (current) use of 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s] Onset: 01-09-2024 09-26-2023 Episodic Other circulatory disease (1 source) Other [...] unspecified stricture type] Onset: 08-27-2023 Episodic Other diseases of kidney and ureters (20 sources) Kidney lesion; Translations: [Disorder of kidney and ureter, unspecified] Onset: 07-24-2023 04-26-2023 Episodic Other female genital disorders (20 sources) Disorder of vagina; Translations: [Stricture and atresia of vagina] Onset: 01-30-2023 01-30-2023 Episodic Other injuries and conditions due to external causes (20 sources) Injury of nose; Translations: [Unspecified injury of nose, initial encounter] Onset: 04-12-2023 Resolved: 11-09-2023 01-27-2018 Episodic Residual codes; unclassified (1 source) Other specified postprocedural states; Translations: [H/O major abdominal surgery] Onset: 08-28-2023 Episodic Screening and history of mental health and substance abuse codes (20 sources) Ex-smoker; Translations: [Personal history of nicotine dependence] Onset: 04-12-2023 01-22-2020 Episodic Unclassified (1 source) Exposure to 2019 novel coronavirus; Translations: [Contact with and (suspected) exposure to COVID19] Results Test Name Value Interpretation Reference Range Facility 30on 01-15-2025 30 The patient is Moderately Unstable - Medium risk of patient condition declining or worsening The patient's goals for the shift include VSS, rest The clinical goals for the shift include VSS, safety, rest Problem: Pain - Adult Goal: Verbalizes/displays adequate comfort level or baseline comfort level Outcome: Progressing Problem: Safety - Adult Goal: Free from fall injury Outcome: Progressing Problem: Discharge Planning Goal: Discharge to home or other facility with appropriate resources Outcome: Progressing Problem: Chronic Conditions and Co-morbidities Goal: Patient's chronic conditions and co-morbidity symptoms are monitored and maintained or improved Outcome: Progressing Normal [facility] BASIC METABOLIC PANELon 06-0 Anion gap [Moles/Vol] 13 mmol/L Normal 7-20 [facility] Comment on above: Performed By: #### L [id number] ####[facility] ([facility])[address] [place] [address] Calcium [Mass/Vol] 8.3 mg/dL Low 8.6-10.3 [facility] Comment on above: Performed By: #### L [id number] ####[facility] ([facility])[address] [place] [address] Chloride [Moles/Vol] 106 mmol/L Normal 98-107 [facility] Comment on above: Performed By: #### L [id number] ####[facility] ([facility])[address] [place] [address] CO2 [Moles/Vol] 19 mmol/L Low 21-31 [facility] Comment on above: Performed By: #### L [id number] ####[facility] ([facility])[address] [place] [address] Creatinine [Mass/Vol] 0.84 mg/dL Normal 0.60-1.20 [facility] Comment on above: Performed By: #### L [id number] ####[facility] [place] [address] GLOMERULAR FILTRATION RATE ML/MIN/1.73 SQ M.PREDICTED 72.0 mL/min/1.73m*2 Normal >60.0 [facility] Comment on above: Result Comment: The [facility]???s estimated glomerular filtration rate (eGFR) will no [...] of individuals. Performed By: #### L [id number] ####[facility] ([facility])[address] [place] [address] Glucose [Mass/Vol] 123 mg/dL High 70-100 [facility] Comment on above: Performed By: #### L [id number] ####[facility] ([facility])[address] [place] [address] Potassium [Moles/Vol] 4.7 mmol/L Normal 3.5-5.1 [facility] Comment on above: Performed By: #### L [id number] ####[facility] ([facility])[address] [place] [address] Sodium [Moles/Vol] 133 mmol/L Low 136-145 [facility] Comment on above: Performed By: #### L [id number] ####[facility] ([facility])[address] [place] [address] Urea nitrogen [Mass/Vol] 16 mg/dL Normal 7-25 [facility] Comment on above: Performed By: #### L [id number] ####[facility] ([facility])[address] [place] [address] UREA NITROGEN/CREATININE (MASS RATIO) IN SER/PLAS 19.0 Normal [facility] Comment on above: Performed By: #### L [id number] ####[facility] ([facility])[address] [place] [address] CBCon 01-15-2025 Erythrocyte distribution width (RBC) [Ratio] 13.4 % Normal 11.5-15.0 [facility] Comment on above: Performed By: #### L [id number] #### [facility] ([facility]) [address] [place] [address] ERYTHROCYTE MEAN CORPUSCULAR HEMOGLOBIN CONCENTRATION (G/DL) BY AUTOMATED 30.1 g/dL Low 32.0-35.0 [facility] Comment on above: Performed By: #### L [id number] #### [facility] ([facility]) [address] [place] [address] Hematocrit (Bld) [Volume fraction] 45.2 % High 36.0-45.0 [facility] Comment on above: Performed By: #### L [id number] #### [facility] ([facility]) [address] [place] [address] Hemoglobin (Bld) [Mass/Vol] 13.6 g/dL Normal 12.0-15.0 [facility] Comment on above: Performed By: #### L [id number] #### [facility] ([facility]) [address] [place] [address] MCH (RBC) [Entitic mass] 30.4 pg Normal 27.0-33.0 [facility] Comment on above: Performed By: #### L [id number] #### [facility] ([facility]) [address] [place] [address] MCV (RBC) [Entitic vol] 100.9 fL High 82.0-98.0 [facility] Comment on above: Performed By: #### L [id number] #### [facility] ([facility]) [address] [place] [address] PLATELETS (10*3/UL) IN BLOOD AUTOMATED COUNT 176 10*3/uL Normal 150-400 [facility] Comment on above: Performed By: #### L [id number] #### [facility] ([facility]) [address] [place] [address] RBC (Bld) [#/Vol] 4.48 10*6/uL Normal 3.80-5.00 [facility] Comment on above: Performed By: #### L [id number] #### [facility] ([facility]) [address] [place] [address] WBC (Bld) [#/Vol] 12.19 10*3/uL High 4.00-10.60 [facility] Comment on above: Performed By: #### L [id number] #### [facility] ([facility]) [address] [place] [address] DSon 01-15-2025 DS Admission Admitted 01/14/2025 for Nonrheumatic mitral valve regurgit* Discharge Diagnosis Nonrheumatic mitral valve regurgitation Discharge Disposition Home or Self Care (01) Discharge Medications Your medication list CONTINUE taking these medications Instructions Last Dose Given Next Dose Due apixaban 5 mg tablet Commonly known as: Eliquis Take 1 tablet (5 mg) by mouth two times daily. atorvastatin 40 mg tablet Commonly known as: Lipitor Take 1 tablet (40 mg) by mouth in the evening. Do not take at bedtime carvedilol 6.25 mg tablet Commonly known as: Coreg Take 1 tablet (6.25 mg) by mouth with breakfast and with evening meal. To be taken with a 3.125 tablet for a total of 9.375 mg twice daily carvedilol 3.125 mg tablet Commonly known as: Coreg Take 1 tablet (3.125 mg) by mouth with breakfast and with evening meal. To be taken with a 6.25 tablet for a total of 9.375 twice daily LORazepam 0.5 mg tablet Commonly known as: Ativan spironolactone 25 mg tablet Commonly known as: Aldactone Take 0.5 tablets (12.5 mg) by mouth once daily as directed. Activity ACTIVITY: , Unless otherwise instructed you may: , ??? Resume normal activity in two days, including driving, letting pain be your guide. , ??? Limit lifting over 10 pounds for one week or until wound heals. No driving 24 hours after procedure. ACTIVITY: , Unless otherwise instructed you may: , ??? Resume normal activity in two days, including driving, letting pain be your guide. , ??? Limit lifting over 10 pounds for one week or until wound heals. ??? You may shower 24 hours after the procedure. Remove the bandage from the hospital before showering. , ??? Gently clean site using soap and water while standing in the shower. Dry thoroughly. , ??? Cleaning the site with soap and water is sufficient. Do not apply antibiotic ointments, powders or lotions. , ??? Cover the site after 24 hours with a square adhesive Band-Aid that seals and covers the area well. , ??? Keep the site clean and dry to prevent infection. If the bandage becomes wet, remove that one and put on a new one. , ??? Do not sit in a bathtub, pool, or hot tub for seven days or until wound has healed. , ??? Inspect the site daily. Diet Continue on the same type of diet and foods as you were eating before your admission. Drink plenty of water. Allergies Demerol [meperidine], Amiodarone, Amoxicillin, Cephalexin, Egg derived, Empagliflozin, Erythromycin, Morphine, Sulfa (sulfonamide antibiotics), Valsartan, and Wheat bran Hospital Course Asya Asencio is a 74-year-old female with a history of heart failure with reduced ejection fraction (EF approximately 40%), chronic atrial fibrillation maintained on digoxin and carvedilol, hypertension, and hypothyroidism. Her clinical decline began in June 2023, when she developed atrial fibrillation with rapid ventricular response during hospitalization for bladder outlet obstruction. She subsequently underwent HAROON-guided cardioversion in August 2023 and was later found to have moderate to severe functional mitral regurgitation. Despite being on maximally tolerated guideline-directed medical therapy and cardiac resynchronization therapy, she remained symptomatic with NYHA Class III heart failure. After evaluation by Interventional Cardiology and the Heart Failure team, she was deemed an appropriate candidate for ANA of the mitral valve. She underwent successful ANA using an XTW MitraClip device, resulting in significant reduction of mitral regurgitation from severe to grade 1+ with improved left atrial V-wave pressure (from 25 mmHg to 16 mmHg). A limited TTE performed today showed stable post-procedural findings. The procedure was well tolerated without complications, and she remained hemodynamically stable throughout. On examination, bilateral groin access sites were intact without bleeding, oozing, or evidence of hematoma. Distal pulses were palpable at +2 bilaterally, and the patient denied numbness, tingling, or pain at or distal to the access sites. Otherwise, she denies chest pain, shortness of breath, palpitations, lightheadedness or dizziness, or lower extreme edema. She was resumed on Eliquis 5 mg twice daily and will require lifelong endocarditis prophylaxis following ANA. She is to follow up in the cardiology clinic in one month with a repeat transthoracic echocardiogram. Follow-up appointments are scheduled per below. Pertinent Physical Exam At Time of Discharge Physical Exam General: Alert and oriented, Appears comfortable in no acute distress. HENT: Head: Normocephalic, atraumatic. Eyes: Conjunctiva clear, sclera anicteric. No periorbital edema. Nose: No nasal congestion or discharge. Throat: Mucous membranes moist and pink. Neck: Supple, no lymphadenopathy. No bruits. No jugular venous distension (JVD) at 45???. Pulmonary: Symmetrical chest rise, no accessory muscle use. Cl (more content not included)... Normal [facility] 30on 01-14-2025 30 The patient is Moderately Stable - Low risk of patient condition declining or worsening The patient's goals for the shift include VSS, rest The clinical goals for the shift include VSS, safety, rest Over the shift, the patient did not make progress toward the following goals. Recommendations to address barriers include making changes to the treatment plan as needed. Problem: Pain - Adult Goal: Verbalizes/displays adequate comfort level or baseline comfort level Outcome: Progressing Flowsheets (Taken 01/14/20252320) Verbalizes/displays adequate comfort level or baseline comfort level: Encourage patient to monitor pain and request assistance Assess pain using appropriate pain scale Administer analgesics based on type and severity of pain and evaluate response Implement non-pharmacological measures as appropriate and evaluate response Consider cultural and social influences on pain and pain management Notify Licensed Independent Practitioner if interventions unsuccessful or patient reports new pain Problem: Safety - Adult Goal: Free from fall injury Outcome: Progressing Flowsheets (Taken 01/14/20252320) Free from fall injury: Assess patient frequently for physical needs Identify cognitive and physical deficits and behaviors that affect risk of falls [place] fall precautions as indicated by assessment Educate patient/family on patient safety, including physical limitations Instruct patient to call for assistance with activity based on assessment Modify environment to reduce risk of injury Consider OT/PT consult to assist with strengthening/mobilit y Problem: Discharge Planning Goal: Discharge to home or other facility with appropriate resources Outcome: Progressing Flowsheets (Taken 01/14/20252320) Discharge to home or other facility with appropriate resources: Identify barriers to discharge with patient and caregiver Arrange for needed discharge resources and transportation as appropriate Identify discharge learning needs (meds, wound care, etc) Problem: Chronic Conditions and Co-morbidities Goal: Patient's chronic conditions and co-morbidity symptoms are monitored and maintained or improved Outcome: Progressing Flowsheets (Taken 01/14/20252320) Care Plan - Patient's Chronic Conditions and Co-Morbidity Symptoms are Monitored and Maintained or Improved: Monitor and assess patient's chronic conditions and comorbid symptoms for stability, deterioration, or improvement Collaborate with multidisciplinary team to address chronic and comorbid conditions and prevent exacerbation or deterioration Update acute care plan with appropriate goals if chronic or comorbid symptoms are exacerbated and prevent overall improvement and discharge Normal [facility] 30 The patient is Moderately Unstable - Medium risk of patient condition declining or worsening The patient's goals for the shift include safety, stable vitals, comfort The clinical goals for the shift include safety, stable vitals Problem: Pain - Adult Goal: Verbalizes/displays adequate comfort level or baseline comfort level Outcome: Progressing Problem: Safety - Adult Goal: Free from fall injury Outcome: Progressing Problem: Discharge Planning Goal: Discharge to home or other facility with appropriate resources Outcome: Progressing Problem: Chronic Conditions and Co-morbidities Goal: Patient's chronic conditions and co-morbidity symptoms are monitored and maintained or improved Outcome: Progressing Normal [facility] BASIC METABOLIC PANELon 06-0 Anion gap [Moles/Vol] 9 mmol/L Normal 7-20 [facility] Comment on above: Performed By: #### L [id number] #### [facility] ([facility]) [address] [place] [address] Calcium [Mass/Vol] 8.5 mg/dL Low 8.6-10.3 [facility] Comment on above: Performed By: #### L [id number] #### [facility] ([facility]) [address] [place] [address] Chloride [Moles/Vol] 107 mmol/L Normal 98-107 [facility] Comment on above: Performed By: #### L [id number] #### [facility] ([facility]) [address] [place] [address] CO2 [Moles/Vol] 26 mmol/L Normal 21-31 [facility] Comment on above: Performed By: #### L [id number] #### [facility] ([facility]) [address] [place] [address] Creatinine [Mass/Vol] 0.80 mg/dL Normal 0.60-1.20 [facility] Comment on above: Performed By: #### L [id number] #### [facility] ([facility]) [address] [place] [address] GLOMERULAR FILTRATION RATE ML/MIN/1.73 SQ M.PREDICTED 76.3 mL/min/1.73m*2 Normal >60.0 [facility] Comment on above: Result Comment: The [facility]???s estimated glomerular filtration rate (eGFR) will no [...] of individuals. Performed By: #### L [id number] #### [facility] ([facility]) [address] [place] [address] Glucose [Mass/Vol] 97 mg/dL Normal 70-100 [facility] Comment on above: Performed By: #### L [id number] #### [facility] ([facility]) [address] [place] [address] Potassium [Moles/Vol] 3.9 mmol/L Normal 3.5-5.1 [facility] Comment on above: Performed By: #### L [id number] #### [facility] ([facility]) [address] [place] [address] Sodium [Moles/Vol] 138 mmol/L Normal 136-145 [facility] Comment on above: Performed By: #### L [id number] #### [facility] ([facility]) [address] [place] [address] Urea nitrogen [Mass/Vol] 11 mg/dL Normal 7-25 [facility] Comment on above: Performed By: #### L [id number] #### [facility] ([facility]) [address] [place] [address] UREA NITROGEN/CREATININE (MASS RATIO) IN SER/PLAS 13.8 Normal [facility] Comment on above: Performed By: #### L [id number] #### [facility] ([facility]) [address] [place] [place] [address] CBC WITH AUTO DIFFERENTIALon 01-14-2025 Basophils (Bld) [#/Vol] 0.03 10*3/uL Normal 0.00-0.20 [facility] Comment on above: Performed By: #### L [id number] #### [facility] ([facility]) [address] [place] [place] [address] Basophils/100 WBC (Bld) 0.6 % Normal 0.0-1.0 [facility] Comment on above: Performed By: #### L [id number] #### [facility] ([facility]) [address] [place] [address] Eosinophils (Bld) [#/Vol] 0.07 10*3/uL Normal 0.00-0.50 [facility] Comment on above: Performed By: #### L [id number] #### [facility] ([facility]) [address] [place] [address] Eosinophils/100 WBC (Bld) 1.4 % Normal 0.0-6.0 [facility] Comment on above: Performed By: #### L [id number] #### [facility] ([facility]) [address] [place] [address] Erythrocyte distribution width (RBC) [Ratio] 13.4 % Normal 11.5-15.0 [facility] Comment on above: Performed By: #### L [id number] #### [facility] ([facility]) [address] [place] [address] ERYTHROCYTE MEAN CORPUSCULAR HEMOGLOBIN CONCENTRATION (G/DL) BY AUTOMATED 33.0 g/dL Normal 32.0-35.0 [facility] Comment on above: Performed By: #### L [id number] #### [facility] ([facility]) [address] [place] [address] Hematocrit (Bld) [Volume fraction] 35.8 % Low 36.0-45.0 [facility] Comment on above: Performed By: #### L [id number] #### [facility] ([facility]) [address] [place] [address] Hemoglobin (Bld) [Mass/Vol] 11.8 g/dL Low 12.0-15.0 [facility] Comment on above: Performed By: #### L [id number] #### [facility] ([facility]) [address] [place] [address] Immature granulocytes (Bld) [#/Vol] 0.02 10*3/uL Normal 0.00-0.20 [facility] Comment on above: Performed By: #### L [id number] #### [facility] ([facility]) [address] [place] [address] Immature granulocytes/100 WBC (Bld) 0.4 % Normal 0.0-1.0 [facility] Comment on above: Performed By: #### L [id number] #### [facility] ([facility]) [address] [place] [address] Lymphocytes (Bld) [#/Vol] 1.34 10*3/uL Normal 1.20-4.00 [facility] Comment on above: Performed By: #### L [id number] #### [facility] ([facility]) [address] [place] [address] Lymphocytes/100 WBC (Bld) 27.7 % Normal 20.0-45.0 [facility] Comment on above: Performed By: #### L [id number] #### [facility] [address] [place] [address] MCH (RBC) [Entitic mass] 31.1 pg Normal 27.0-33.0 [facility] Comment on above: Performed By: #### L [id number] #### [facility] [address] [place] [address] MCV (RBC) [Entitic vol] 94.2 fL Normal 82.0-98.0 [facility] Comment on above: Performed By: #### L [id number] #### [facility] ([facility]) [address] [place] [address] Monocytes (Bld) [#/Vol] 0.40 10*3/uL Normal 0.10-1.00 [facility] Comment on above: Performed By: #### L [id number] #### [facility] ([facility]) [address] [place] [address] Monocytes/100 WBC (Bld) 8.3 % Normal 5.0-12.0 [facility] Comment on above: Performed By: #### L [id number] #### [facility] [address] [place] [address] Neutrophils (Bld) [#/Vol] 2.98 10*3/uL Normal 1.60-7.60 [facility] Comment on above: Performed By: #### L [id number] #### [facility] ([facility]) [address] [place] [address] Neutrophils/100 WBC (Bld) 61.6 % Normal 40.0-72.0 [facility] Comment on above: Performed By: #### L [id number] #### [facility] ([facility]) [address] [place] [address] NRBC (PER 100 WBCS) BY AUTOMATED COUNT 0.0 % Normal 0 [facility] Comment on above: Performed By: #### L [id number] #### [facility] ([facility]) [address] [place] [address] PLATELETS (10*3/UL) IN BLOOD AUTOMATED COUNT 178 10*3/uL Normal 150-400 [facility] Comment on above: Performed By: #### L [id number] #### [facility] [address] [place] [address] RBC (Bld) [#/Vol] 3.80 10*6/uL Normal 3.80-5.00 [facility] Comment on above: Performed By: #### L [id number] #### [facility] ([facility]) [address] [place] [address] WBC (Bld) [#/Vol] 4.84 10*3/uL Normal 4.00-10.60 [facility] Comment on above: Performed By: #### L [id number] #### [facility] ([facility]) [address] [place] [address] HPon 01-14-2025 HP H&P reviewed. The patient was examined and there are no changes to the H&P. Normal [facility] POCT GLUCOSE METER UNSOLICIT ED RESULTSon 01-14-2025 Glucose [Mass/Vol] 92 mg/dL Normal 70-105 [facility] Comment on above: Order Comment: Waive d Testing in the ED is performed under the ED CLIA certificate #[id number]. Result Comment: [email or web address] [email or web address] Performed By: #### L [id number] #### [facility] ([facility]) [address] [place] [address] PROTIME-INRon 01-14-2025 INR IN PPP BY COAGULATION ASSAY 1.08 Normal 0.90-1.10 [facility] Comment on above: Result Comment: ACCC P RECOMMENDED INR FOR WARFARIN THERAPY CONDITION INR PROPHYLAXIS OF VENOUS THROMBOSIS 2-3 (HIGH-RISK SURGERY) TREATMENT OF VENOUS THROMBOSIS 2-3 TREATMENT OF PULMONARY EMBOLISM 2-3 PREVENTION OF SYSTEMIC EMBOLISM: 2-3 ACUTE MYOCARDIAL INFARCTION TISSUE HEART VALVES VALVULAR HEART DISEASE ATRIAL FIBRILLATION RECURRENT SYSTEMIC EMBOLISM MECHANICAL HEART VALVE 2.5-3.5 FROM: ORAL ANTICOAGULANTS. MECHANISM OF ACTION, CLINICAL EFFECTIVENESS, AND OPTIMAL THERAPEUTIC RANGE. CHEST 1995;108:231S-246S. Performed By: #### L [id number] #### [facility] , PROTHROMBIN TIME (PT) IN PPP BY COAGULATION ASSAY 14.0 Seconds Normal 12.3-14.8 [facility] Comment on above: Performed By: #### L [id number] #### [facility] , TYPE AND SCREENon 01-14-2025 AB SCREEN Negative Normal [facility] Comment on above: Performed By: #### L [id number] #### [facility] , ABO group Nom (Bld) O Normal [facility] Comment on above: Performed By: #### L [id number] #### [facility] , RH TYPE IN BLOOD Positive Normal [facility] Comment on above: Performed By: #### L [id number] #### [facility] , Orders Onlyon 01-13-2025 Orders Only [id number] Elif,Asya I 1950 F Date Provider Department Center 01/13/2025 USMAN LOPEZ [facility] Family History Problem Relation Age of Onset Coronary artery disease Mother Diabetes Mother Coronary artery disease Father Family Status - Relation Status Age at Mother Father Sister Brother Alive Normal [facility] Orders Onlyon 01-09-2025 Orders Only [id number] Elif,Asya I 1950 F Date Provider Department Center 01/09/2025 BIANCA MIGUEL [facility] Family History Problem Relation Age of Onset Coronary artery disease Mother Diabetes Mother Coronary artery disease Father Family Status - Relation Status Age at Mother Father Sister Brother Alive Normal [facility] Orders Onlyon 01-08-2025 Orders Only [id number] Elif,Asya I 1950 F Date Provider Department Center 01/08/2025 RADHA CHAVEZ [facility] C[facility] Family History Problem Relation Age of Onset Coronary artery disease Mother Diabetes Mother Coronary artery disease Father Family Status - Relation Status Age at Mother Father Sister Brother Alive [facility] Documentationon 12-25-2024 Documentation [id number] Elif,Asya I 1950 F Date Provider Department Center 12/25/2024 325-SHARA MARTINEZ [facility] Family History Problem Relation Age of Onset Coronary artery disease Mother Diabetes Mother Coronary artery disease Father Family Status - Relation Status Age at Mother Father Sister Brother Alive [facility] Telephoneon 12-24-2024 Telephone [id number] Asya Asencio I 1950 F Date Provider Department [place] 12/24/2024 Martha-BIANCA [facility] Family History Problem Relation Age of Onset Coronary artery disease Mother Diabetes Mother Coronary artery disease Father Family Status - Relation Status Age at Mother Father Sister Brother Alive [facility] HPon 12-23-2024 [facility] Cardiology - [facility] Subjective Asya Asencio is a 74 y.o. year old female patient being seen for follow up MR/RT Patient states she is here for clearance to have teeth pulled. Patient state she has a lot of blood in her urine her and gum bleeding family Told here it was due to the Eliquis. Patient states she has chest pain feel like a sharp pain that come and goes quickly, dyspnea with exertion, not sleeping well, palpitations. Patient lucas dizziness, leg swelling Patient Active Problem List Diagnosis Acid reflux Acute gastroenteritis Adjustment disorder with mixed anxiety and depressed mood Anxiety Atherosclerosis of aorta Atrial fibrillation, persistent (CMS/HCC) Atrophic vaginitis Cardiomyopathy, nonischemic (CMS/HCC) Chronic fatigue syndrome Cystocele with prolapse Dysuria Feeling of incomplete bladder emptying Former smoker History of urethral stricture Incomplete bladder emptying Injury of nose Intestinal obstruction (CMS/HCC) Nocturia Non-rheumatic mitral regurgitation Nonrheumatic tricuspid valve regurgitation Panic attack Poor urinary stream Primary hypertension Renal lesion Seasonal allergies Severe protein-calorie malnutrition Status post hysterectomy Stranguria Stricture and atresia of vagina Superficial laceration of face Suprapubic pain Transient insomnia Urethral stricture Urinary frequency Urinary urgency 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 She is [...] At her recent visit with cardiology at [facility] on 09/26/2023 valsartan was stopped and low-dose lisinopril 5 mg once daily was added. The plan was to add Jardiance. There is note of her to being evaluated by CT surgery Dr. Sorto regarding candidacy for cardiac surgery and she was deemed high risk. She was also evaluated at [facility] cardiothoracic surgery. Initial workup for her mitral valve disease was started. Spironolactone was changed to half tablet twice a day instead of 1 tablet once a day. She was also recommended to start taking digoxin at night instead of the morning. At visit with de on 10/16/2023 I increased her carvedilol to 6.25 mg twice daily. I asked for a cardiopulmonary excise test. After visit with de on 10/30/2023 I added Jardiance 10 mg daily to optimize GDMT for systolic heart failure. I also started her on amiodarone to attempt rhythm control. Following that she stopped both medications due to side effects. After visit with me on 12/01/2023 I referred her to Marco Yao for consideration of further management of her atrial fibrillation to include A-fib ablation. Dr. Marco Yao decided to proceed with placement of biventricular pacemaker ICD on 02/28/2024 with a ultimate plan for AV jonathan ablation. She eventually underwent AV jonathan ablation on 06/10/2024. She did well with that procedure. Her follow-up echocardiogram showed worsening mitral regurgitation. She recently underwent transesophageal echocardiogram that showed severe mitral regurgitation and tricuspid regurgitation. She is here today for follow-up to determine management of her valvular heart disease. She has shortness of breath on exertion NYHA class II-III symptoms. She has no dizziness or lightheadedness or lower extremity edema. She has occasional chest discomfort. In addition she has been having on and off hematuria and is asking about anticoagulation therapy. Review of Systems Constitutional: Positive for malaise/fatigue. Cardiovascular: Positive for chest pain and dyspnea on exertion. Hematologic/Lymphatic : Bruises/bleeds easily. Gastrointestinal: Positive for change in bowel habit and constipation. Psychiatric/Behaviora l: The patient is nervous/anxious. All other systems reviewed and are negativ (more content not included)... Normal [facility] Office Visiton 12-23-2024 Follow-up visit [id number] Asya Asencio I 1950 F Date Provider Department Center 12/23/2024 Mulu-NEREYDA ROBINS CECILE Quinones [facility] Family History Problem Relation Age of Onset Coronary artery disease Mother Diabetes Mother Coronary artery disease Father Family Status - Relation Status Age at Mother Father Sister Brother Alive Level of Service:[id number] [place] OFFICE/OUTPATIENT ESTABLISHED HIGH MDM 40 MIN Normal [facility] Urinalysis macro (dipstick) panel (U)on 12-17-2024 Bilirubin, UA Negative Negative - 4(70) +++ mg/dL [facility] Blood, UA Positive Negative - 50 Pedro/mcL [facility] Clarity, UA Clear [facility] Color, UA Yellow [facility] Glucose, UA Negative Negative - 1999(110) ++++ mg/dL [facility] Interpretation and review of laboratory results Abnormal [facility] Ketones, UA Negative Negative - 160(16) ++++ mg/dL [facility] Leukocytes, UA Negative Negative - 500+++ Ghislaine/mcL [facility] Nitrite, UA Negative Negative - Positive [facility] pH, UA 6 5 - 9 [facility] Protein, UA Negative Negative - 1999(20) ++++ mg/dL [facility] Spec Grav, UA 1.005 1 - 1.03 [facility] Urobilinogen, UA 0.2 0.2 - 12 mg/dL [facility] ANESon 11-29-2024 ANES - Attestation signed by Shara Martinez MD at 11/29/2024 11:53 AM By using the attestations below, the signing clinician agrees that I have read and verify that the documentation has been personally reviewed by me and ensure that the documentation accurately reflects the encounter. GC: I personally saw this patient on the day of the encounter, performed the mansfield portion(s) of the service and participated in the management and confirm the resident's documentation. Please note there may be an additional personal documentation from me. Patient: Asya Asencio Procedure Information Date/Time: 11/29/24 0900 Procedure: TRANSESOPHAGEAL ECHO (HAROON) Location: [facility] Vascular Lab Clinical information reviewed: Allergies Meds OB Status Physical Exam Airway Mallampati: III Cardiovascular Dental Pulmonary Abdominal Anesthesia Plan ASA 3 other (Conscious sedation) intravenous induction Anesthetic plan and risks discussed with patient. Use of blood products discussed with patient who consented to blood products. Plan discussed with attending and fellow. Additional Equipment Requests Normal [facility] BASIC METABOLIC PANELon 04- Anion gap [Moles/Vol] 9 mmol/L Normal 7-20 [facility] Comment on above: Performed By: #### L [id number] #### [facility] ([facility]) [address] [place] [address] Calcium [Mass/Vol] 9.1 mg/dL Normal 8.6-10.3 [facility] Comment on above: Performed By: #### L [id number] #### [facility] ([facility]) [address] [place] [address] Chloride [Moles/Vol] 102 mmol/L Normal 98-107 [facility] Comment on above: Performed By: #### L [id number] #### [facility] [address] [place] [address] CO2 [Moles/Vol] 32 mmol/L High 21-31 [facility] Comment on above: Performed By: #### L [id number] #### [facility] [address] [place] [address] Creatinine [Mass/Vol] 0.85 mg/dL Normal 0.60-1.20 [facility] Comment on above: Performed By: #### L [id number] #### [facility] ([facility]) [address] [place] [address] GLOMERULAR FILTRATION RATE ML/MIN/1.73 SQ M.PREDICTED 71.0 mL/min/1.73m*2 Normal >60.0 [facility] Comment on above: Result Comment: The [facility]???s estimated glomerular filtration rate (eGFR) will no [...] of individuals. Performed By: #### L [id number] #### [facility] ([facility]) [address] [place] [address] Glucose [Mass/Vol] 96 mg/dL Normal 70-100 [facility] Comment on above: Performed By: #### L [id number] #### [facility] [address] [place] [address] Potassium [Moles/Vol] 4.9 mmol/L Normal 3.5-5.1 [facility] Comment on above: Performed By: #### L [id number] #### [facility] [address] [place] [address] Sodium [Moles/Vol] 138 mmol/L Normal 136-145 [facility] Comment on above: Performed By: #### L [id number] #### [facility] ([facility]) [address] [place] [address] Urea nitrogen [Mass/Vol] 14 mg/dL Normal 7-25 [facility] Comment on above: Performed By: #### L [id number] #### [facility] ([facility]) [address] [place] [address] UREA NITROGEN/CREATININE (MASS RATIO) IN SER/PLAS 16.5 Normal [facility] Comment on above: Performed By: #### L [id number] #### [facility] ([facility]) [address] [place] [address] CBCon 11-29-2024 Erythrocyte distribution width (RBC) [Ratio] 13.3 % Normal 11.5-15.0 [facility] Comment on above: Performed By: #### L [id number] #### [facility] ([facility]) [address] [place] [address] ERYTHROCYTE MEAN CORPUSCULAR HEMOGLOBIN CONCENTRATION (G/DL) BY AUTOMATED 32.1 g/dL Normal 32.0-35.0 [facility] Comment on above: Performed By: #### L [id number] #### [facility] ([facility]) [address] [place] [address] Hematocrit (Bld) [Volume fraction] 41.8 % Normal 36.0-45.0 [facility] Comment on above: Performed By: #### L [id number] #### [facility] [address] [place] [address] Hemoglobin (Bld) [Mass/Vol] 13.4 g/dL Normal 12.0-15.0 [facility] Comment on above: Performed By: #### L [id number] #### [facility] [address] [place] [address] MCH (RBC) [Entitic mass] 30.0 pg Normal 27.0-33.0 [facility] Comment on above: Performed By: #### L [id number] #### [facility] ([facility]) [address] [place] [address] MCV (RBC) [Entitic vol] 93.7 fL Normal 82.0-98.0 [facility] Comment on above: Performed By: #### L [id number] #### [facility] ([facility]) [address] [place] [address] PLATELETS (10*3/UL) IN BLOOD AUTOMATED COUNT 264 10*3/uL Normal 150-400 [facility] Comment on above: Performed By: #### L [id number] #### [facility] ([facility]) [address] [place] [address] RBC (Bld) [#/Vol] 4.46 10*6/uL Normal 3.80-5.00 [facility] Comment on above: Performed By: #### L [id number] #### [facility] ([facility]) [address] [place] [address] WBC (Bld) [#/Vol] 9.08 10*3/uL Normal 4.00-10.60 [facility] Comment on above: Performed By: #### L [id number] #### [facility] ([facility]) [address] [place] [address] HPon 11-29-2024 - Attestation signed by Shara Martinez MD at 11/29/2024 11:52 AM By using the attestations below, the signing clinician agrees that I have read and verify that the documentation has been personally reviewed by me and ensure that the documentation accurately reflects the encounter. GC: I personally saw this patient on the day of the encounter, performed the mansfield portion(s) of the service and participated in the management and confirm the resident's documentation. Please note there may be an additional personal documentation from me. History Of Present Illness Asya Asencio is a 74 y.o. female with HFrEF, moderate to severe MR, and TR PAF presents for [facility]. Past Medical History She has a past medical history of Abnormal ECG, Arrhythmia, Atrial fibrillation (CMS/HCC), CHF (congestive heart failure) (CMS/HCC), Heart murmur, Heart valve disease, Hypertension, and Nonischemic cardiomyopathy (CMS/HCC). Surgical History She has a past surgical history that includes Cardioversion; Ablation of dysrhythmic focus; Cardiac catheterization; and Insert / replace / remove pacemaker. Social History She reports that she has quit smoking. Her smoking use included cigarettes. She has been exposed to tobacco smoke. She has never used smokeless tobacco. She reports that she does not drink alcohol and does not use drugs. Family History Family History Problem Relation Name Age of Onset Coronary artery disease Mother Diabetes Mother Coronary artery disease Father Allergies Amiodarone, Amoxicillin, Cephalexin, Egg derived, Empagliflozin, Erythromycin, Morphine, Sulfa (sulfonamide antibiotics), Valsartan, and Wheat bran Medications (Not in a hospital admission) Review of Systems Constitutional: Negative for activity change and appetite change. HENT: Negative for congestion and facial swelling. Eyes: Negative for discharge and visual disturbance. Respiratory: Negative for apnea, cough, choking, chest tightness, shortness of breath, wheezing and stridor. Cardiovascular: Negative for chest pain, palpitations and leg swelling. Gastrointestinal: Negative for abdominal distention and abdominal pain. Endocrine: Negative for cold intolerance and heat intolerance. Genitourinary: Negative for flank pain and frequency. Musculoskeletal: Negative for arthralgias and back pain. Skin: Negative for color change and pallor. Allergic/Immunologic: Negative for environmental allergies and food allergies. Neurological: Negative for dizziness and headaches. Hematological: Negative for adenopathy. Does not bruise/bleed easily. Psychiatric/Behaviora l: Negative for agitation and behavioral problems. Last Recorded Vitals Visit Vitals BP 134/62 Pulse 70 Resp 16 Ht 1.651 m (5' 5 ) Wt 61.7 kg (136 lb) SpO2 100% BMI 22.63 kg/m??? OB Status Postmenopausal Smoking Status Former BSA 1.68 m??? Physical Exam Vitals reviewed. HENT: Head: Normocephalic. Nose: Nose normal. Mouth/Throat: Mouth: Mucous membranes are moist. Pharynx: Oropharynx is clear. No oropharyngeal exudate. Eyes: Extraocular Movements: Extraocular movements intact. Pupils: Pupils are equal, round, and reactive to light. Cardiovascular: Rate and Rhythm: Normal rate and regular rhythm. Pulses: Normal pulses. Heart sounds: No murmur heard. Pulmonary: Effort: Pulmonary effort is normal. No respiratory distress. Breath sounds: No wheezing. Abdominal: General: Abdomen is flat. There is no distension. Palpations: Abdomen is soft. Musculoskeletal: General: No swelling or tenderness. Normal range of motion. Cervical back: Normal range of motion. No rigidity. Skin: General: Skin is warm and dry. Capillary Refill: Capillary refill takes less than 2 seconds. Coloration: Skin is not jaundiced or pale. Neurological: General: No focal deficit present. Mental Status: She is alert and oriented to person, place, and time. Psychiatric: Mood and Affect: Mood normal. Behavior: Behavior normal. Relevant Lab Results Lab Results Component Value Date NA 138 11/29/2024 K 4.9 11/29/2024 CL 102 11/29/2024 CO2 32 (H) 11/29/2024 BUN 14 11/29/2024 CREATININE 0.85 11/29/2024 GLUCOSE 96 11/29/2024 CALCIUM 9.1 11/29/2024 ANIONGAP 9 11/29/2024 EGFR 71.0 11/29/2024 BCR 16.5 11/29/2024 Relevant Imaging Results Electrophysiology procedure Narrative: AV NODE ABLATION PROCEDURE REPORT DATE OF PROCEDURE: 06/10/2024 PERFORMING PHYSICIAN: Dr. Marco Yao CONSENT: Patient NAME OF THE PROCEDURE: AV node ablation LOCATION: EP Lab INDICATIONS FOR PROCEDURE: 1. Atrial fibrillation with RVR. PROCEDURAL SEDATION: Versed and Fentanyl. Moderate sedation was administered by the sedation nurse under my supervision and noted in the CVL log. Intraprocedural f (more content not included)... [facility] NURSNOTEon 11-29-2024 NURSNOTE Bedside swallow stud y completed and passed. [facility] NURSNOTE RN educated pt on d/ c instructions. This included: site care, limited physical activity, resume normal diet, future appointments, medications, and moderate sedation instructions. RN educated pt on when to notify physician and when to go to the hospital. RN encouraged pt to voice any questions or concerns, and answered any questions or concerns if pt verbalized. Pt was wheeled off of unit with all of belongings. [facility] Telephoneon 11-22-2024 Telephone [phone] Asya Asencio I 1950 F Date Provider Department Center 11/22/2024 [facility] Family History Problem Relation Age of Onset Coronary artery disease Mother Diabetes Mother Coronary artery disease Father Family Status - Relation Status Age at Mother Father [facility] Bacteria identified Cx Nom ( U)on 11-21-2024 Appearance (U) Adequate [facility] Internal identifier for Provider [id number] [facility] Specimen source Nom (Unsp spec) URINE, CLEAN CATCH [facility] STATUS FINAL [facility] Performing Organization Information Site ID: [email or web address] Name: [email or web address] [facility] Address: [address] [place] [address] Director: Ab Vincent MD [facility] CULTURE, URINE, ROUTINEon CULTURE, URINE, ROUTINE SEE NOTE Normal [facility] Comment on above: Result Comment: CULTURE, URINE, ROUTINE Micro Number: [id number] Test Status: Final Specimen Source: Urine, clean catch Specimen Quality: Adequate Result: No Growth Performed By: #### 3 95 #### [email or web address] [place] [address] Patrol Inspector: Ab Vincent MD Urine cultureon 11-21-2024 Bacteria identified Cx Nom (U) SEE NOTE [facility] Comment on above: No Growth Urinalysis macro (dipstick) panel (U)on 11-18-2024 Bilirubin, UA Negative Negative - 4(70) +++ mg/dL [facility] Blood, UA Positive Negative - 50 Pedro/mcL [facility] Clarity, UA Clear [facility] Color, UA Yellow [facility] Glucose, UA Negative Negative - 1999(110) ++++ mg/dL [facility] Interpretation and review of laboratory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 [facility] Family History Problem Relation Age of Onset Coronary artery disease Mother Diabetes Mother Coronary artery disease Father Family Status - Relation Status Age at Mother Father Normal [facility] Office Visiton 02-22-2024 Follow-up visit [id number] Asya Asencio I 1950 F Date Provider Department Center 02/22/2024 [facility] CARD [facility] Family History Problem Relation Age of Onset Coronary artery disease Mother Diabetes Mother Coronary artery disease Father Family Status - Relation Status Age at Mother Father Level of Service:56763 [place] OFFICE/OUTPATIENT ESTABLISHED LOW MDM 20 MIN Normal [facility] Orders Onlyon 02-20-2024 Orders Only [id number] Asya Asencio I 1950 Provider Department Center 02/20/2024 [facility] VASC LAB [facility] Family History Problem Relation Age of Onset Coronary artery disease Mother Diabetes Mother Coronary artery disease Father Family Status - Relation Status Age at Mother Father Normal [facility] Orders Onlyon 02-13-2024 Orders Only [id number] Asya Asencio I 1950 Provider Department Center 02/13/2024 [facility] MIGUEL [facility] Family History Problem Relation Age of Onset Coronary artery disease Mother Diabetes Mother Coronary artery disease Father Family Status - Relation Status Age at Mother Father Normal [facility] Office Visiton 01-30-2024 Follow-up visit [id number] Asya Asencio I 1950 Provider Department [place] 01/30/2024 [facility] Family History Problem Relation Age of Onset Coronary artery disease Mother Diabetes Mother Coronary artery disease Father Family Status - Relation Status Age at Mother Father Level of Service:11199 [place] OFFICE/OUTPATIENT NEW MODERATE MDM 45 MINUTES Normal [facility] C Urineon 11-24-2023 Bacteria identified Cx Nom (U) Microbiology PROCEDURE: Urine Culture [R1] SOURCE: U CleanCatch BODY SITE: COLLECTED DATE/TIME: 11/22/2023 16:36 EDT RECEIVED DATE/TIME: 11/22/2023 17:31 EDT START DATE/TIME: 11/22/2023 17:31 EDT FREE TEXT SOURCE: Winnie PALMA, Edel Mcclelland. Winnie PALMA, Edel Garcia FINAL REPORTS Final Report [] Verified Date/Time: 11/24/2023 09:32 EDT 1,000 cfu/ml Mixed skin contaminants Performing Locations R1: [facility] at: [facility], [address] [place] [address], [id number] Comment on above: Performed By: #### 2 [id number], [id number], [id number], [id number] #### [facility] [address] [place] [address] BB Draw & Holdon 11-23-2023 BB D&H Sample drawn for Blood Ba Normal [facility] Comment on above: Performed By: #### 1 [id number] #### [facility] [address] [place] [address] CT Abdomen/Pelvis w/ Contras ton 11-23-2023 CT Abdomen/Pelvis w/ Contrast Exam Date/Time: 11/22/2023 19:58 EDT Reason for Exam: LLQ abdominal pain;Other (please specify) Report IMPRESSION: NO ACUTE INTRA-ABDOMINAL PROCESS OR SIGNIFICANT CHANGE FROM 06/30/2023 IDENTIFIED. CHRONIC FINDINGS, NOTED. EXAM: CT Abdomen/Pelvis w/ Contrast DATE: 11/22/2023 7:49 PM CLINICAL HISTORY: LLQ abdominal pain. COMPARISON: 06/30/2023. TECHNIQUE: Spiral imaging was obtained of the abdomen and pelvis after the uneventful infusion of approximately 100 mL of Isovue [address] scans at this facility use dose modulation, iterative reconstruction, and/or weight based dosing when appropriate to reduce radiation dose to as low as reasonably achievable. Unless otherwise stated, incidental findings identified in this report do not require routine follow-up imaging. FINDINGS: Liver: No enlargement, significant fatty infiltration, suspicious mass or lesion. Biliary: The gallbladder is essentially contracted and otherwise unremarkable. No abnormal biliary ductal dilatation. Pancreas: No mass, organized fluid collection, or abnormal pancreatic ductal dilatation. Spleen: Unremarkable. Adrenals: Unremarkable. Kidneys: No hydronephrosis, significant urinary tract calculi, or suspicious mass. A few small simple left peripelvic cysts again noted. GI tract: No abnormal dilation or wall thickening. Previous subtotal sigmoid colectomy. The appendix is not confidently identified, without findings to suggest acute appendicitis. Lymph nodes: No pathologically enlarged lymph nodes. Mesentery/peritoneum: No ascites or mass. Retroperitoneum: No inflammatory changes or mass. Pelvis: Stable 2.7 cm nonenhancing fluid density radiating adnexal cyst without perceptible wall. The urinary bladder and left adnexa are unremarkable. Previous hysterectomy. No inflammatory changes or ascites. Vasculature: No aneurysm or dissection. Minimal to mild calcified atherosclerotic plaquing. Musculoskeletal: No acute osseous findings. L5 spondylolysis and mild degenerative Report changes predominantly of the lower lumbar levels. Lower thorax: Mild to moderate cardiomegaly again noted. No visualized pleural or pericardial effusion. Ordering Provider: Edel Zhou FINAL REPORT Dictated: 11/23/2023 9:15 am London Padilla MD Signed (Electronic Signature): 11/23/2023 9:15 am Signed by: London Padilla MD Transcribed by: ARAVIND Technologist: JON Technical Comments GFR (mL/min/1/73m2) 58 Contrast: Isovue 300 Contrast amount in ml's: 100 Rectal Contrast Given? No Oral contrast amount in ml's: 0 Normal [facility] ED Note-Physicianon 11-23-19 ED Note-Physician Basic Information Time Seen: Edel Zhou PA-C 11/22/2023 16:32 History of Present Illness 73-year-old female presents with suprapubic pain for the past week. She has been here in the past for constipation. She complains of dysuria. Denies radiation of pain. Denies fever, back pain, n/v/d, shortness of breath or chest pain Patient is jumping from thought to thought with no pause for conversation. Review of Systems Review of systems negative unless otherwise stated in HPI Physical Exam Vitals & Measurements T: 36.0 ?C(Tympanic) HR: 87(Peripheral) RR: 18 BP: 134/80 SpO2: 98% HT: 165 cm WT: 49.8 kg BMI: 18.29 GENERAL: ALERT, NO ACUTE DISTRESS SKIN: WARM, DRY, INTACT; NO CYANOSIS, NO RASH HEAD: NORMOCEPHALIC, ATRAUMATIC ENT: EYE: PERRL, EOMI, NORMAL CONJUNCTIVA, NO DISCHARGE NOSE: NARES PATENT MOUTH: ORAL MUCOSA MOIST THROAT: NO STRIDOR NECK: SUPPLE, TRACHEA MIDLINE, FROM RESPIRATORY: NON-LABORED RESPIRATIONS, SYMMETRICAL EXPANSION ABDOMEN: SOFT, suprapubic tenderness, NORMAL BS, NO ORGANOMEGALY, NON DISTENDED, NO REBOUND TENDERNESS,GUARDING OR PERITONEAL SIGNS EXTREMITIES: FROM X 4 NEUROLOGICAL: A&OX3 PSYCHIATRIC: COOPERATIVE, APPROPRIATE MOOD AND AFFECT Medical Decision Making Patient is jumping from thought to thought with no pausing for conversation. She seems very anxious. When I tried to interject to ask further questions about her initial complaint, she is over talking me and jumps from talking about her urinary complaints to her carvedilol to her atrial fibrillation. UA negative for UTI. Prelim abdominal x-ray reviewed with Dr. Calloway and shows a possible foreign body versus rossy, but she is denying any previous abdominal surgeries. We will therefore obtain a further workup including imaging. No significant abnormalities. Patient is very iohc-khd-cptpy with her symptoms and now states to the nurse that she feels better. No acute findings on final read of CT abdomen pelvis with contrast, it does mention mild fecal retention and she is likely constipated. She will be given a dose of lactulose and a prescription and follow-up with the family doctor. Afebrile, not tachycardic, not tachypneic, nontoxic-appearing, tolerating p.o. and ambulating at baseline and hemodynamically stable to be discharged home. Educated side effect of medications. Answered all questions. Patient in agreement with treatment. Assessment/Plan 1. Constipation (K59.00: Constipation, unspecified) Ordered: lactulose, 13.333 gm = 20 mL, Oral, Daily, X 5 day(s), # 100 mL, Refills(s) 0, Pharmacy: [facility], 165, cm, 11/22/23 16:28:00 EDT, Height/Length Dosing, 49.8, kg, 11/22/23 16:28:00 EDT, Weight Dosing Orders: lactulose, 30 gram = 45 mL, Syrup, Oral, Once, Stop date 11/22/23 20:40:00 EDT, STAT, Start date 11/22/23 20:40:00 EDT, 11/22/23 20:40:00 EDT BB Draw & Hold CBC w/ Auto Diff Comprehensive Metabolic Panel CT Abdomen/Pelvis w/ Contrast ECG 12 Lead Adult eGFR Extra Goel Tube Extra SST Tube Magnesium Level PT & PTT Saline Lock Insert Troponin 0 Hr. UA with Cult Rflx Urine Culture XR Abdomen 1 View Disposition Plan Patient Discharge Condition Stable Discharge Disposition Home Discharge Prescription List Prescriptions lactulose 10 g/15 mL Oral Syrup, 13.333 gm= 20 mL, Oral, Daily Follow-up With When Contact Information Hannah Brian MD In 3 days 11/25/[address] [place] [address]- Additional Instructions: Patient Education Constipation, Adult, [id number] Attestation I performed a substantive part of the MDM during the patient?s E/M visit. I personally made or approved the documented management plan and acknowledge its risk of complications. (Independent Interpretation) My (EKG/X-Ray/US/CT) interpretation as above. (Discussion) Management/test interpretation discussed with APC. Problem List/Past Medical History Ongoing acid reflux Acute gastroenteritis anxiety Atrophic vaginitis Cystocele with prolapse Dysuria Feeling of incomplete bladder emptying Former smoker History of urethral stricture Injury of nose Nocturia Other urethral stricture, female Poor urinary stream Renal lesion Stranguria Superficial laceration of face Suprapubic pain Urethral stricture Urinary frequency Urinary hesitancy Urinary urgency Weak urine stream Historical No qualifying data Procedure/Surgical History Transesophageal echocardiogram (07/21/2023), Cardiac catheterization, combined right and left heart (07/05/2023), Cystourethroscopy with dilation of urethral stricture (10/25/2022), Cystoscopy (02/23/2021), Dilation of urethra (02/01/2019), Cystourethroscopy with dilation of urethral stricture (10/10/2017), colon resection, Corneal implant, Cystoscopy, Dilation of urethra, Hysterectomy, Tonsillectomy. Medications Inpatient lactulose 20 g/30 mL Oral Syrup, 30 gm= 45 mL, Oral, Once Home aspirin 81 mg Oral EC T (more content not included)... Normal [facility] Comment on above: Result Comment: Elec tronically Signed By: Edel Zhou PA-C\.br\Date and Time Signed: 11/22/23 20:45 EDT\.br\Electronically Co-Signed By: Jayson Calloway DO.br\Date and Time Co-Signed: 11/23/23 07:15 EDT CBC w/ Auto Diffon 4 Basophils/100 WBC (Bld) 1.1 % Normal 0.0-2.0 [facility] Comment on above: Performed By: #### 1 [id number] #### [facility] [address] [place] [address] Basophils/Leukocytes Auto (Bld) [Pure # fraction] 0.1 E9/L Normal 0.0-0.2 [facility] Comment on above: Performed By: #### 1 [id number] #### [facility] [address] [place] [address] Eosinophils (Bld) [#/Vol] 0.0 E9/L Normal 0.0-0.5 [facility] Comment on above: Performed By: #### 1 [id number] #### [facility] [address] [place] [address] Eosinophils/100 WBC (Bld) 0.2 % Normal 0.0-8.0 [facility] Comment on above: Performed By: #### 1 [id number] #### [facility] [address] [place] [address] Erythrocyte distribution width (RBC) [Ratio] 14.7 % High 10.9-14.2 [facility] Comment on above: Performed By: #### 1 [id number] #### [facility] [address] [place] [address] Hematocrit (Bld) [Volume fraction] 42.0 % Normal 34.0-46.0 [facility] Comment on above: Performed By: #### 1 [id number] #### [facility] [address] [place] [address] Hemoglobin (Bld) [Mass/Vol] 13.9 g/dL Normal 12.0-16.0 [facility] Comment on above: Performed By: #### 1 [id number] #### [facility] [address] [place] [address] Lymphocytes (Bld) [#/Vol] 2.1 E9/L Normal 1.0-4.0 [facility] Comment on above: Performed By: #### 1 [id number] #### [facility] [address] [place] [address] Lymphocytes/100 WBC (Bld) 25.6 % Normal 14.0-50.0 [facility] [facility] Comment on above: Performed By: #### 1 [id number] #### [facility] [address] [place] [address] MCH (RBC) [Entitic mass] 30.3 pg Normal 27.0-34.0 [facility] Comment on above: Performed By: #### 1 [id number] #### [facility] [address] [place] [address] MCHC (RBC) [Mass/Vol] 33.1 g/dL Normal 31.4-36.0 [facility] Comment on above: Performed By: #### 1 [id number] #### [facility] [address] [place] [address] MCV (RBC) [Entitic vol] 91.5 fL Normal 80.0-100.0 [facility] Comment on above: Performed By: #### 1 [id number] #### [facility] [address] [place] [address] Monocytes (Bld) [#/Vol] 0.5 E9/L Normal 0.2-1.0 [facility] Comment on above: Performed By: #### 1 [id number] #### [facility] [address] [place] [address] Neutrophils (Bld) [#/Vol] 5.5 E9/L Normal 2.0-7.5 [facility] Comment on above: Performed By: #### 1 [id number] #### [facility] [address] [place] [address] Neutrophils/100 WBC (Bld) 66.8 % Normal 36.0-75.0 [facility] Comment on above: Performed By: #### 1 [id number] #### [facility] [address] [place] [address] Platelet mean volume (Bld) [Entitic vol] 8.3 fL Normal 6.4-10.8 [facility] Comment on above: Performed By: #### 1 [id number] #### [facility] [address] [place] [address] Platelets (Bld) [#/Vol] 250.0 E9/L Normal 150.0-500.0 [facility] Comment on above: Performed By: #### 1 [id number] #### [facility] [address] [place] [address] RBC (Bld) [#/Vol] 4.6 E12/L Normal 4.3-5.9 [facility] Comment on above: Performed By: #### 1 [id number] #### [facility] [address] [place] [address] WBC corrected for nucl RBC Auto (Bld) [#/Vol] 8.3 E9/L Normal 4.0-11.0 [facility] Comment on above: Performed By: #### 1 [id number] #### [facility] [address] [place] [address] CHEMISTRYOrdered By: SYSTEM SYSTEM on 11-22-2023 Albumin [...] Sensitivity Troponin I Instructions For Use, Marlys Walkerton, March 2018) Urea nitrogen [Mass/Vol] 20 mg/dL Normal 5 - 21 mg/dL Remisol Chem Urea nitrogen/Creatinine [Mass ratio] 20 mg/mg Normal 10 - 20 Remisol Chem CMPon 11-22-2023 Albumin [Mass/Vol] 4.6 g/dL Normal 3.3-5.0 [facility] Comment on above: Performed By: #### 1 [id number] #### [facility] [address] [place] [address] Albumin/Globulin (S) [Mass conc ratio] 1.8 Normal 1.1-2.2 [facility] Comment on above: Performed By: #### 1 [id number] #### [facility] [address] [place] [address] ALP [Catalytic activity/Vol] 90 Int._Unit/L Normal 21-98 [facility] Comment on above: Performed By: #### 1 [id number] #### [facility] [address] [place] [address] ALT No additional P-5'-P [Catalytic activity/Vol] 41 Int._Unit/L Normal 6-46 [facility] Comment on above: Performed By: #### 1 [id number] #### [facility] [address] [place] [address] Anion gap [Moles/Vol] 13 mmol/L Normal 6-16 [facility] Comment on above: Performed By: #### 1 [id number] #### [facility] [address] [place] [address] AST [Catalytic activity/Vol] 30 Int._Unit/L Normal 5-43 [facility] Comment on above: Performed By: #### 1 [id number] #### [facility] [address] [place] [address] Bilirubin [Mass/Vol] 1.0 mg/dL Normal 0.0-1.1 [facility] Comment on above: Performed By: #### 1 [id number] #### [facility] [address] [place] [address] Calcium [Mass/Vol] 10.0 mg/dL Normal 8.9-11.1 [facility] Comment on above: Performed By: #### 1 [id number] #### [facility] [address] [place] [address] Chloride [Moles/Vol] 99 mmol/L Low 101-111 [facility] Comment on above: Performed By: #### 1 [id number] #### [facility] [address] [place] [address] CO2 [Moles/Vol] 27 mmol/L Normal 21-31 [facility] Comment on above: Performed By: #### 1 [id number] #### [facility] [address] [place] [address] Creatinine [Mass/Vol] 1.0 mg/dL Normal 0.5-1.3 [facility] Comment on above: Performed By: #### 1 [id number] #### [facility] [address] [place] [address] Globulin (S) [Mass/Vol] 2.6 g/dL Normal 1.4-4.0 [facility] Comment on above: Performed By: #### 1 [id number] #### [facility] [address] [place] [address] Glucose [Mass/Vol] 114 mg/dL Normal 55-199 [facility] Comment on above: Performed By: #### 1 [id number] #### [facility] [address] [place] [address] Potassium [Moles/Vol] 4.2 mmol/L Normal 3.5-5.3 [facility] Comment on above: Performed By: #### 1 [id number] #### [facility] [address] [place] [address] Protein [Mass/Vol] 7.2 g/dL Normal 6.0-7.8 [facility] Comment on above: Performed By: #### 1 [id number] #### [facility] [address] [place] [address] Sodium [Moles/Vol] 135 mmol/L Normal 135-145 [facility] Comment on above: Performed By: #### 1 [id number] #### [facility] [address] [place] [address] Urea nitrogen [Mass/Vol] 20 mg/dL Normal 5-21 [facility] Comment on above: Performed By: #### 1 [id number] #### [facility] [address] [place] [address] Urea nitrogen/Creatinine [Mass ratio] 20 No Units Normal 10-20 [facility] Comment on above: Performed By: #### 1 [id number] #### [facility] [address] [place] [address] COAGULATIONOrdered By: Elena Dinero on 11-22-2023 aPTT Coag (PPP) [Time] 41.3 s High 25.1 - 36.5 second(s) [facility] Comment on above: Interpretive Data: [...] the same coagulation reagent and instrumentation as [facility]. Currently there are no coagulation studies available worldwide for children to 14 days, and no normal ranges. Heparin therapeutic range (represented by Anti-Factor Xa activity of 0.2 - 0.4 U/mL) corresponds to PTT of 56.6 - 109.0 sec. INR Coag (PPP) [Relative time] 1.37 {INR} Invalid Interpretation Code [facility] Comment on above: Interpretive Data: I NR results are specifically intended to assess patients stabilized on long-term Anticoagulation therapy suggested INR s Less Intensive Anticoagulation 2.0 3.0 Conventional Range 3.0 4.5 PT Coag (PPP) [Time] 15.4 s High 9.4 - 1 2.5 second(s) [facility] Comment on above: Interpretive Data: [...] the same coagulation reagent and instrumentation as [facility]. Currently there are no coagulation studies available worldwide for children to 14 days, and no normal ranges. Consent for Treatmenton 11-12 Consent for Treatment [id number] .00TIFF Normal [facility] Discharge Instructionson Discharge Instructions [id number]# 1.00TIFF Normal [facility] ED Clinical Summaryon 2023 ED Clinical Summary [address] [address] ED Clinical Summary Person Information Name: SAYA ASENCIO I [place] Age: 73 Years : 1950 Sex: Female Language: [place] PCP: Hannah Brian MD Marital Status: Visit Id: Visit Reason: Back pain; Dysuria; LOWER BACK PAIN, URINARY ISSUES Speciality: Acuity: 4 Enc Type: Emergency Med Service: Emergency Arrival: 11/22/2023 16:16:41 Discharge: 11/22/2023 20:57:34 LOS: 000 04:41 Checkin: 11/22/2023 16:16:41 Checkout: 11/22/2023 20:57:34 Dispo Type: Home (Routine DC) EVENTS: Event Name Event Status Request Date/Time Start Date/Time Complete Date/Time Arrive Complete 11/22/2023 16:16:41 11/22/2023 16:16:41 11/22/2023 16:16:41 Document Home Meds Request 11/22/2023 16:16:41 Triage Complete 11/22/2023 16:16:41 11/22/2023 16:28:36 11/22/2023 16:28:36 Registration Complete 11/22/2023 16:23:41 11/22/2023 16:23:41 11/22/2023 16:23:41 Reg Complete Request 11/22/2023 16:23:41 Reg Bed Request Complete 11/22/2023 16:23:41 11/22/2023 16:23:41 11/22/2023 16:23:41 Isolation Screening Request 11/22/2023 16:28:37 Bed Assign Complete 11/22/2023 16:31:59 11/22/2023 16:31:59 11/22/2023 16:31:59 Dr Exam Complete 11/22/2023 16:31:59 11/22/2023 16:32:55 11/22/2023 16:32:55 RN Exam Complete 11/22/2023 16:31:59 11/22/2023 16:38:26 11/22/2023 16:38:26 Registration Complete 11/22/2023 16:32:55 11/22/2023 20:36:38 11/22/2023 20:36:38 Pending Labs Complete 11/22/2023 16:34:22 11/22/2023 17:07:58 Dr Exam Complete 11/22/2023 16:35:24 11/22/2023 16:35:24 11/22/2023 16:35:24 Pending Labs Inlab 11/22/2023 17:07:59 11/22/2023 17:07:59 Lab Inlab 11/22/2023 17:07:59 11/22/2023 17:07:59 Patient Care Cancel 11/22/2023 17:09:45 11/22/2023 17:10:36 Pending Labs Cancel 11/22/2023 17:09:45 11/22/2023 17:10:36 Lab Cancel 11/22/2023 17:09:45 11/22/2023 17:10:36 EKG Cancel 11/22/2023 17:09:45 11/22/2023 17:10:36 X-Ray Cancel 11/22/2023 17:09:45 11/22/2023 17:10:36 X-Ray Complete 11/22/2023 17:10:46 11/22/2023 17:22:50 11/22/2023 17:37:21 Wet Read Request 11/22/2023 17:37:21 Patient Care Complete 11/22/2023 18:03:33 11/22/2023 18:32:32 Pending Labs Complete 11/22/2023 18:03:33 11/22/2023 20:06:33 Lab Complete 11/22/2023 18:03:33 11/22/2023 19:24:22 CT Complete 11/22/2023 18:03:33 11/22/2023 19:26:42 11/22/2023 19:58:26 EKG Complete 11/22/2023 18:03:33 11/22/2023 19:08:14 Pending Labs Complete 11/22/2023 18:41:38 11/22/2023 18:41:38 11/22/2023 19:24:22 Lab Complete 11/22/2023 18:41:38 11/22/2023 18:41:38 11/22/2023 19:24:22 Pending Labs Inlab 11/22/2023 20:12:26 11/22/2023 20:12:26 Blood Collect Start 11/22/2023 20:12:26 11/22/2023 20:12:26 Pending Labs Complete 11/22/2023 20:14:15 11/22/2023 20:14:15 11/22/2023 20:14:15 Pending Labs Complete 11/22/2023 20:21:05 11/22/2023 20:21:05 11/22/2023 20:21:05 Meds Admin Complete 11/22/2023 20:40:18 11/22/2023 20:52:30 Discharge Complete 11/22/2023 20:41:00 11/22/2023 20:57:39 11/22/2023 20:57:39 Transfer Complete 11/22/2023 20:57:39 11/22/2023 20:57:39 11/22/2023 20:57:39 ADDRESS: [address] [place] [address] [address] [facility] [id number] PHYS DOC NOTES: MEDICAL INFORMATION: Prescriptions Given: New Medications [facility] [address], [address], [place] [id number], [phone] lactulose (lactulose 10 g/15 mL Oral Syrup) 20 Milliliter By Mouth every day for 5 Days. Refills: 0. Medications to Continue with No Changes Other Medications apixaban (Eliquis 5 mg oral tablet) 1 Tablets By Mouth 2 times a day. Refills: 0. aspirin (aspirin 81 mg Oral EC Tab) 1 Tablets By Mouth every day. Refills: 0. atorvastatin (Lipitor 40 mg Tab) 1 Tablets By Mouth at bedtime. Refills: 0. carvedilol (carvedilol 3.125 mg Tab) 1 Tablets By Mouth 2 times a day. Refills: 0. digoxin (digoxin 125 mcg (0.125 mg) Tab) 1 Tablets By Mouth every day. Refills: 0. furosemide (furosemide 40 mg Tab) 1 Tablets By Mouth every day. Refills: 0. lorazepam (LORazepam 1 mg Tab) losartan (losartan 25 mg Tab) 1 Tablets By Mouth every day. Refills: 0. ondansetron (Zofran ODT 4 mg Tab-Dis) 1 Tablets By Mouth every 8 hours. Refills: 0. polyethylene glycol 3350 (polyethylene glycol 3350 17 gram packet) 17 Gram By Mouth every day. Refills: 0. PATIENT EDUCATION INFORMATION: Instructions: Constipation, Adult, Covs-nz-[id number] Follow up: With: Address: When: Snehal MCMAHON, [facility] [place] [address] [place] [address] In 3 days 11/25/2023 DIAGNOSIS: 1:Constipation Normal [facility] ED Patient Education Noteon 11-22-2023 ED Patient Education Note Gastroenterology Constipation, Adult Constipation is when a person has trouble pooping (having a bowel movement). When you have this condition, you may poop fewer than 3 times a week. Your poop (stool) may also be dry, hard, or bigger than normal. Follow these instructions at home: Eating and drinking ? Eat foods that have a lot of fiber, such as: ? Fresh fruits and vegetables. ? Whole grains. ? Beans. ? Eat less of foods that are low in fiber and high in fat and sugar, such as: ? Burundian fries. ? Hamburgers. ? Cookies. ? Candy. ? Soda. ? Drink enough fluid to keep your pee (urine) pale yellow. General instructions ? Exercise regularly or as told by your doctor. Try to do 150 minutes of exercise each week. ? Go to the restroom when you feel like you need to poop. Do not hold it in. ? Take arzi-hzv-lmypsor and prescription medicines only as told by your doctor. These include any fiber supplements. ? When you poop: ? Do deep breathing while relaxing your lower belly (abdomen). ? Relax your pelvic floor. The pelvic floor is a group of muscles that support the rectum, bladder, and intestines (as well as the uterus in women). ? Watch your condition for any changes. Tell your doctor if you notice any. ? Keep all follow-up visits as told by your doctor. This is important. Contact a doctor if: ? You have pain that gets worse. ? You have a fever. ? You have not pooped for 4 days. ? You vomit. ? You are not hungry. ? You lose weight. ? You are bleeding from the opening of the butt (anus). ? You have thin, pencil-like poop. Get help right away if: ? You have a fever, and your symptoms suddenly get worse. ? You leak poop or have blood in your poop. ? Your belly feels hard or bigger than normal (bloated). ? You have very bad belly pain. ? You feel dizzy or you faint. Summary ? Constipation is when a person poops fewer than 3 times a week, has trouble pooping, or has poop that is dry, hard, or bigger than normal. ? Eat foods that have a lot of fiber. ? Drink enough fluid to keep your pee (urine) pale yellow. ? Take vbkb-wro-woosmqd and prescription medicines only as told by your doctor. These include any fiber supplements. This information is not intended to replace advice given to you by your health care provider. Make sure you discuss any questions you have with your health care provider. Document Revised: 06/17/2020 Document Reviewed: 06/17/2020 [employer] Patient Education ? 2022 [employer] Normal [facility] ED Patient Summaryon 024 ED Patient Summary [place] [id number] Patient Discharge Instructions Person Information Name: ASYA ASENCIO I Age: 73 Years Arrival Date: 11/22/2023 16:16:41 Discharge Diagnosis: 1:Constipation Primary Care Physician: Hannah Brian MD Provider Information Primary Provider: Jayson Calloway DO Advanced Technical Internship:None The exam and treatment you received in the Emergency Department were for an urgent problem and are not intended as complete care. It is important that you follow up with a doctor, nurse practitioner, or physician?s assistant operations manager for ongoing care. If your symptoms become worse or you do not improve as expected and you are unable to reach your usual health care provider, you should return to the Emergency Department. We are available 24 hours a day. ELIF ASYA I has been given the following list of patient education materials, prescriptions and follow-up instructions: Follow-up Instructions: With: Address: When: Snehal MCMAHON, [facility] [place] [address] In 3 days 11/25/2023 In the event that this physician does not participate in your insurance network, please consult with your insurance company to find a nearby participating provider. Patient Education Materials: Constipation, Adult, Okgc-be-Suga A MESSAGE TO ALL PATIENTS REGARDING OPIOIDS PRESCRIPTION OPIOIDS: WHAT YOU NEED TO KNOW Prescription opioids can be used to help relieve duazercp-yp-fpqpah pain and are often prescribed following a surgery or injury, or for certain health conditions. These medications can be an important part of the treatment but also come with serious risks. It is important to work with your healthcare provider to make sure you are getting the safest, most effective care. WHAT ARE THE RISKS AND SIDE EFFECTS OF OPIOID USE? Prescription opioids carry serious risks of addiction and overdose, especially with prolonged use. An opioid overdose, often marked by slowed breathing, can cause sudden . The use of prescription opioids can have a number of side effects as well, even when taken as directed: ? Tolerance?meaning you might need to take more of the medication for the same pain relief ? Physical dependence?meaning you have symptoms of withdrawal when a medication is stopped ? Increased sensitivity to pain ? Constipation ? Nausea, vomiting, and dry mouth ? Sleepiness and dizziness ? Confusion ? Depression ? Low levels of testosterone that can result in lower sex drive, energy, and strength ? Itching and sweating RISKS ARE GREATER WITH: ? History of drug misuse, substance use disorder, or overdose ? Mental health conditions (such as depression or anxiety) ? Sleep apnea ? Older age (65 years and older) ? Avoid alcohol while taking prescription opioids. Also, unless specifically advised by your health care provider, medications to avoid include: ? Benzodiazepines (such as Xanax or Valium) ? Muscle relaxants (such as Soma or Flexeril) ? Hypnotics (such as Ambien or Lunesta) ? Other prescription opioids KNOW YOUR OPTIONS Talk to your health care provider about ways to manage your pain that don?t involve prescription opioids. Some of these options may actually work better and have fewer risks and side effects. Options may include: ? Pain relievers such as acetaminophen, ibuprofen, and naproxen ? Some medication that are also used for depression or seizures ? Physical therapy and exercise ? Cognitive behavioral therapy, a psychological, goal-directed approach, in which patients learn how to modify physical, behavioral, and emotional triggers of pain and stress. IF YOU ARE PRESCRIBED OPIOIDS FOR PAIN: ? Never take opioids in greater amounts or more often than prescribed. ? Follow up with your primary health care provider. o Work together to create a plan on how to manage your pain. o Talk about ways to help manage your pain that don?t involve prescription opioids. o Talk about any and all concerns and side effects. ? Help prevent misuse and abuse o Never sell or share prescription opioids. o Never use another person?s prescription opioids. ? Store prescription opioids in a secure place and out of reach of others (this may include visitors, children, friends, and family). ? Safely dispose of unused prescription opioids: Find your community drug take-back program or your pharmacy mail-back program, or flush them down the toilet, following guidance from the Food and Drug Administration (www.fda.gov/Drugs/Re sourcesForYou). ? Visit www.cdc.gov/drugoverd ose to learn about the risks of opioids abuse and overdose. ? If you believe you may be struggling with addiction, tell your health animal care worker and ask for guidance or call [facility] National Helpline at 3-655-396-QYZV. v Source: US Department of Health and Human S (more content not included)... Normal [facility] HEMATOLOGYOrdered By: SYSTEM SYSTEM on 11-22-2023 [...] 11-22-2023 Magnesium [Mass/Vol] 2.0 mg/dL Normal 1.3-2.4 Fish er [facility] Comment on above: Performed By: #### 1 [id number] #### [facility] [address] [place] [address] PT & PTTon 11-22-2023 aPTT Coag (PPP) [Time] 41.3 second(s) High 25.1-36.5 [facility] Comment on above: Result Comment: Para [...] the same coagulation reagent and instrumentation as [facility]. Currently there are no coagulation studies available worldwide for children to 14 days, and no normal ranges. Heparin therapeutic range (represented by Anti-Factor Xa activity of 0.2 - 0.4 U/mL) corresponds to PTT of 56.6 - 109.0 sec. Performed By: #### 1 [id number] #### [facility] [address] [place] [address] INR Coag (PPP) [Relative time] 1.37 {INR} Invalid Interpretation Code [facility] Comment on above: Result Comment: INR results are specifically intended to assess patients stabilized on long-term Anticoagulation therapy suggested INR?s ?Less Intensive Anticoagulation? 2.0 ? 3.0 Conventional Range 3.0 ? 4.5 Performed By: #### 1 [id number] #### [facility] [address] [place] [address] PT Coag (PPP) [Time] 15.4 second(s) High 9.4-12.5 [facility] Comment on above: Result Comment: 15 [...] the same coagulation reagent and instrumentation as [facility]. Currently there are no coagulation studies available worldwide for children to 14 days, and no normal ranges. Performed By: #### 1 [id number] #### [facility] [address] [place] [address] RAD - Preliminary Cat Scan R eporton 11-22-2023 RAD - Preliminary Cat Scan Report [id number]# 1.00TIFF Normal [facility] Troponin 0 Hr.on 11-22-2023 Troponin 12.30 pg/mL Normal 10.10-27.10 [facility] Comment on above: Result Comment: The 95% CI (Confidence Interval) PPV (Positive Predictive Value) for myocardial infarction in females is 38 pg/mL, in males 51 pg/mL. The results should be used in conjunction with clinical conditions of myocardial infarction. (Access High Sensitivity Troponin I Instructions For Use, Marlys Ari[place], March 2018) Performed By: #### 1 [id number] #### [facility] [address] [place] [address] UA with Cult Rflxon 11-22-19 24 Bilirubin Ql (U) Negative Normal Negative [facility] Comment on above: Performed By: #### 2 [id number], [id number], [id number], [id number], [id number], [id number] #### [facility] [address] [place] [address] Clarity (U) Clear Normal Clear [facility] Comment on above: Performed By: #### 2 [id number], [id number], [id number], [id number], [id number], [id number] #### [facility] [address] [place] [address] Color (U) Colorless Abnormal Yellow [facility] Comment on above: Result Comment: Micr oscopic readings are only performed on those samples that meet specific criteria set forth by [facility]. Performed By: #### 2 [id number], [id number], [id number], [id number], [id number], [id number] #### [facility] [address] [place] [address] Epithelial cells.squamous Auto (Urine sed) [#/Area] 0-2 Normal 0-2 [facility] Comment on above: Performed By: #### 2 [id number], [id number], [id number], [id number], [id number], [id number] #### [facility] [address] [place] [address] Glucose Ql (U) Negative Normal Negative [facility] Comment on above: Performed By: #### 2 [id number], [id number], [id number], [id number], [id number], [id number] #### [facility] [address] [place] [address] Hemoglobin Auto test strip (U) [Mass/Vol] Negative Normal Negative [facility] Comment on above: Performed By: #### 2 [id number], [id number], [id number], 7353249, [id number], [id number] #### [facility] [address] [place] [address] Ketones Auto test strip Ql (U) Negative Normal Negative [facility] Comment on above: Performed By: #### 2 [id number], [id number], [id number], [id number], [id number], [id number] #### [facility] [address] [place] [address] Leukocyte esterase Auto test strip Ql (U) 75 Ghislaine/uL Abnormal Negative [facility] Comment on above: Performed By: #### 2 [id number], [id number], [id number], [id number], [id number], [id number] #### [facility] [address] [place] [address] Mucus Auto Ql (U) Negative Normal Negative [facility] Comment on above: Performed By: #### 2 [id number], [id number], [id number], [id number], [id number], [id number] #### [facility] [address] [place] [address] Nitrite Auto test strip Ql (U) Negative Normal Negative [facility] Comment on above: Performed By: #### 2 [id number], [id number], [id number], [id number], [id number], [id number] #### [facility] [address] [place] [address] pH (U) 7.0 [pH] Invalid Interpretation Code 5.0-9.0 [facility] Comment on above: Performed By: #### 2 [id number], [id number], [id number], [id number], [id number], [id number] #### [facility] [address] [place] [address] Protein Ql (U) Negative Normal Negative [facility] Comment on above: Performed By: #### 2 534459, [id number], [id number], [id number], [id number], [id number] #### [facility] [address] [place] [address]375 RBC Ql (U) 0-3 Normal 0-3 [facility] Comment on above: Performed By: #### 2 [id number], [id number], [id number], [id number], [id number], [id number] #### [facility] [address] [place] [address] Specific gravity (U) [Rel density] 1.004 Invalid Interpretation Code 1.005-1.030 [facility] Comment on above: Performed By: #### 2 [id number], [id number], [id number], 7773324, [id number], [id number] #### [facility] [address] [place] [address] Urobilinogen (U) [Mass/Vol] Negative Normal Negative [facility] Comment on above: Performed By: #### 2 [id number], [id number], 9161141, 2642668, 9404045, [id number] #### [facility] [address] [place] [address] WBC Auto (Urine sed) [#/Area] 0-5 Normal 0-5 [facility] Comment on above: Performed By: #### 2 [id number], [id number], 2123143, 0528261, [id number], [id number] #### [facility] [address] [place] [address] Type of Urine collection method Clean Catch Normal [facility] Comment on above: Performed By: #### 2 [id number], [id number], [id number], 0368081, 2722859, [id number] #### [facility] [address] [place] [address] URINALYSISOrdered By: SYSTEM SYSTEM on 11-22-2023 Bilirubin Ql (U) Negative Normal Negativemg/ d L [facility] UA Auto SS Clarity (U) Clear (11/22/23 4:36 PM) Normal Clear [facility] UA Auto SS Color (U) Colorless 1 *ABN* (11/22/23 4:36 PM) Invalid Interpretation Code Yellow [facility] UA Auto SS Comment on above: Interpretive Data: M icroscopic readings are only performed on those samples that meet specific criteria set forth by [facility]. Epithelial cells.squamous Auto (Urine sed) [...] UA Auto SS pH (U) 7.0 *NA* (4/10/24 4:36 PM) Invalid Interpretation Code 5.0 - 9.0 [facility] UA Auto SS Protein Ql (U) Negative Normal Negativemg/d L [facility] UA Auto SS RBC Ql (U) 0-3 graded/HPF Normal 0-3graded/HP F [facility] UA Auto SS Specific gravity (U) [Rel density] 1.004 *NA* (11/22/23 4:36 PM) Invalid Interpretation Code 1.005 - 1.030 [facility] UA Auto SS Urobilinogen (U) [Mass/Vol] Negative Normal Negativemg/d L [facility] UA Auto SS WBC Auto (Urine sed) [#/Area] 0-5 graded/HPF Normal 0-5graded/HP F [facility] UA Auto SS URINALYSISOrdered By: Sandhya Xavier on 11-22-2023 UA Spec Desc Clean Catch (11/22/23 4:36 PM) Normal FT UA Auto SS XR Abdomen 1 Viewon 11-22-19 XR Abdomen 1 View Exam Date/Time: 11/22/2023 17:37 EDT Reason for Exam: Abdominal pain Report IMPRESSION: NONSPECIFIC ABDOMEN. CLINICAL HISTORY: Abdominal pain COMPARISON: NONE. FINDINGS: Gas and stool in colon. Gas in small bowel. No focal or diffuse small bowel dilatation. Surgical anastomotic suture line identified in region of sigmoid colon. No mass effect. No abnormal calcification. Osseous structures intact. Ordering Provider: Edel Zhou FINAL REPORT Dictated: 11/22/2023 6:05 pm Moiz Carreno MD Signed (Electronic Signature): 11/22/2023 6:05 pm Signed by: Moiz Carreno MD Transcribed by: DP Technologist: DPR Technical Comments Radiation Dose: Ka,r in mGy = na DAP = na Normal [facility] eGFRon 11-22-2023 eGFR 58 mL/min/1.73 m2 Low >=59 [facility] Comment on above: Order Comment: Order added by Discern Expert. Performed By: #### 1 [id number] #### [facility] [address] [place] [address] Consent for Treatmenton Consent for Treatment [id number] .00TIFF Normal [facility] US Abdomen, Limitedon 2023 US Abdomen, Limited Exam Date/Time: 11/13/2023 08:00 EDT Reason for Exam: R19.00 Intra-abdominal and pelvic swelling, mass and lump, unspecified site Report IMPRESSION: No soft tissue mass or collection in the area of concern. EXAMINATION: US Abdomen, Limited HISTORY: R19.00 Intra-abdominal and pelvic swelling, mass and lump, unspecified site. TECHNIQUE: Grayscale and power Doppler ultrasound imaging was performed in the area of concern and images were saved to the permanent image archive. COMPARISON: CT 04/04/2023. Ultrasound 10/03/2016. RESULT: There is no soft tissue mass or collection in the area of concern. No hernia visualized. Visualized aorta normal caliber with vascular calcifications. Per tech, the area of palpable concern corresponds to the location of the abdominal aorta which may be the region the patient is feeling secondary to thin body habitus. Ordering Provider: Hannah Brian FINAL REPORT Dictated: 11/13/2023 3:31 pm Johan Nava MD Signed (Electronic Signature): 11/13/2023 3:31 pm Signed by: Johan Nava MD Transcribed by: ARAVIND Technologist: JOSE [facility] Physician Orderon 11-09-2023 Physician Order [id number] .00TIFF [facility] CNOVon 10-16-2023 CNOV Normal [facility] CNPNon 10-16-2023 CNPN Normal [facility] UA DIP, URINE (POC)on 2023 BILIRUBIN UA (POCT) Negative Negative [facility] CLARITY UA (POCT) Clear [facility] COLOR UA (POCT) Yellow [facility] GLUCOSE UA (POCT) Negative Negative mg/dL [facility] Hemoglobin Ql (U) Trace-lysed Abnormal Negative [facility] KETONE UA (POCT) Negative Negative mg/dL [facility] LEUKOCYTES UA (POCT) Large Abnormal Negative [facility] NITRITE UA (POCT) Negative Negative [facility] PH UA (POCT) 6.0 4.5 - 8.0 [facility] Protein Ql (U) Negative Negative mg/dL [facility] SPECIFIC GRAVITY UA (POCT) 1.010 1.005 - 1.030 [facility] UROBILINOGEN UA (POCT) 0.2 E.U./dL Normal E.U./dL [facility] ED Note-Physicianon 10-06-19 ED Note-Physician Basic Information Time Seen: Nica Knox PA-C 10/05/2023 20:09 Chief Complaint pt c\o abd cramping and difficulty having bowel movements x4 weeks. concerned about toxic dose of heart medicine History of Present Illness Patient presents emergency department with abdominal discomfort and constipation. The patient states she did not take her MiraLAX this morning because her stomach was bothering her. She denies any nausea or vomiting. She denies any fevers chills or sweats. She denies any chest pain or difficulty breathing. She did have a bowel movement yesterday or the day before, but she did not remember exactly when. The patient states that she is can run out of her medicine before she sees Dr. Henriquez on 20 October. Patient denies any urinary burning frequency or urgency. She denies any hematuria or vaginal discharge. She denies any melena or hematochezia. The patient also requests an EKG be done as she thinks she is back in A-fib. Review of Systems Constitutional: Denies weight loss, fevers, chills, sweats, malaise Eyes: Denies visual changes, eye pain, double vision, scotomas, floaters ENT: Denies runny nose, epistaxis, sinus pain, ear pain, ringing in ears, tooth ache, sore throat, pain with swallowing Cardiovascular: Denies chest pain, shortness of breath, orthopnea, edema, palpitations, loss of consciousness, claudication Respiratory: Denies cough, sputum production, wheezing, hemoptysis, shortness of breath, dyspnea on exertion Gastrointestinal: Denies abdominal pain, unintentional weight loss, difficulty swallowing, indigestion, bloating, cramping, loss of appetite, nausea, vomiting, diarrhea, hematochezia, melena. + Chronic constipation Genitourinary: Denies any incontinence of urine, dysuria, hematuria, nocturia, polyuria, hesitancy, frequency, urgency, burning Musculoskeletal: Denies joint pain, morning stiffness, joint swelling, decreased range of motion, crepitus Integumentary: Denies any pruritus, rashes, lesions, wounds, petechiae Neurologic: Denies any changes in sight, smell, hearing, taste, seizures, headache, paresthesia, numbness, weakness, balance disturbance Psychiatric denies any depression, change in sleep patterns, anxiety, difficulty concentrating, paranoia, anhedonia, lack of energy, mela Hematologic/lymphatic : Denies any purpura, petechiae, excessive bleeding, bruising Physical Exam Vitals & Measurements T: 36.5 ?C(Oral) HR: 75(Peripheral) RR: 19 BP: 144/81 SpO2: 100% HT: 165 cm WT: 50.3 kg BMI: 18.48 Vital signs and nursing notes reviewed. General: Awake, alert, anxious HEENT: Head is normocephalic, atraumatic. PERRL. EOMI. Sclerae are anicteric. External ears are normal. TMs are intact bilaterally. Canals are clear bilaterally. Nares are patent bilaterally. Oral mucosa is pink and moist. No lesions noted. Tongue protrudes in midline. Uvula rises with phonation. Neck is supple, no no palpable adenopathy. No JVD. Trachea is midline. Thorax: Symmetrical rise and fall Lungs: Clear to auscultation throughout all mccain, no wheezes, no crackles Heart: Regular rate and rhythm. No murmur, gallop, or rub Abdomen: No tenderness on palpation. Bowel sounds are present active and normal. No organomegaly. No palpable masses. No CVA tenderness. Extremities: Motor sensory pulses intact x4 extremities. No lower extremity edema. Skin: No lesions, rashes, ulcerations. No bruising or petechiae. Color appropriate, warm and dry Neuro: No oriented x3, no focal neuro deficits Psych: + Anxiety Medical Decision Making MEDICAL DECISION MAKING Number and Complexity of Problems Differential Diagnosis: Need for medication refill, chronic constipation MDM Data External documents reviewed: Not applicable My EKG interpretation: Noted in chart if applicable My CT interpretation: Noted in chart if applicable My X-ray interpretation: Noted in chart if applicable My Ultrasound interpretation: Not applicable Decision rules/scores evaluated: Noted in chart if applicable Discussed with: Not applicable Treatment and Disposition ED Course: The patient was interviewed and examined. EKG was sinus rhythm at a rate of 65. I discussed with the patient that she is not in A-fib. The patient was provided with a GI cocktail for her abdominal discomfort. The patient is requesting a suppository, but does not want it placed here in the department. She is prefers to place it herself at home. I discussed the discharge diagnosis, plan of care, home-going instructions and prescription with the patient. The patient will be discharged home in stable condition. She is to follow-up with Dr. Henriquez as scheduled on October 20. She is to return to the emergency department for further problems or concerns. Shared decision making: I discussed the discharge diagnosis and plan of care with the patient. She is in agreement with the plan of care. Code status: Not applicable Assessment/Plan 1. Constipation (K59.00: Constipation, unspecified) (more content not included)... [facility] Comment on above: Result Comment: Elec tronically Signed By: Nica Knox PA-C\.br\Date and Time Signed: 10/05/23 21:57 EST\.br\Electronically Co-Signed By: Koby Masterson DO\.br\Date and Time Co-Signed: 10/06/23 00:54 EST Consent for Treatmenton 09-15 Consent for Treatment [id number] .00TIFF [facility] Discharge Instructionson Discharge Instructions [id number] 1.00TIFF [facility] ED Clinical Summaryon 2023 ED Clinical Summary [place] [id number] ED Clinical Summary Person Information Name: ASYA ASENCIO I [place] Age: 73 Years : 1950 Sex: Female Language: [place] PCP: Aravind MCMAHON, Peggy Mcmillan Marital Status: Visit Id: Visit Reason: Abdominal pain; MEDICAL PROBLEM, Speciality: Acuity: 3 Enc Type: Emergency Med Service: Emergency Arrival: 10/05/2023 17:54:10 Discharge: 10/05/2023 21:56:27 LOS: 000 04:02 Checkin: 10/05/2023 17:54:10 Checkout: 10/05/2023 21:56:27 Dispo Type: Home (Routine DC) EVENTS: Event Name Event Status Request Date/Time Start Date/Time Complete Date/Time Arrive Complete 10/05/2023 17:54:10 10/05/2023 17:54:10 10/05/2023 17:54:10 Document Home Meds Request 10/05/2023 17:54:10 Triage Complete 10/05/2023 17:54:10 10/05/2023 18:07:40 10/05/2023 18:07:40 Isolation Screening Request 10/05/2023 18:07:41 Bed Assign Complete 10/05/2023 20:07:45 10/05/2023 20:07:45 10/05/2023 20:07:45 Dr Exam Complete 10/05/2023 20:07:45 10/05/2023 20:09:26 10/05/2023 20:09:26 RN Exam Complete 10/05/2023 20:07:45 10/05/2023 20:37:48 10/05/2023 20:37:48 Registration Complete 10/05/2023 20:09:26 10/05/2023 20:16:51 10/05/2023 20:16:51 Dr Exam Complete 10/05/2023 20:09:50 10/05/2023 20:09:50 10/05/2023 20:09:50 Reg Complete Request 10/05/2023 20:16:51 Reg Bed Request Complete 10/05/2023 20:16:51 10/05/2023 20:16:51 10/05/2023 20:16:51 EKG Complete 10/05/2023 20:46:39 10/05/2023 21:05:27 Meds Admin Complete 10/05/2023 20:48:54 10/05/2023 20:52:55 Meds Admin Complete 10/05/2023 21:41:02 10/05/2023 21:54:52 Discharge Complete 10/05/2023 21:41:39 10/05/2023 21:56:34 10/05/2023 21:56:34 Transfer Complete 10/05/2023 21:56:34 10/05/2023 21:56:34 10/05/2023 21:56:34 ADDRESS: [address] [place] [address] [address] [facility] [id number] PHYS DOC NOTES: MEDICAL INFORMATION: Prescriptions Given: Medications to Continue Taking That Have Changed [employer] [address] [place], [place] [id number], [phone] START: carvedilol (carvedilol 3.125 mg Tab) 1 Tablets By Mouth 2 times a day for 14 Days. Refills: 0. Other Medications START: carvedilol (carvedilol 3.125 mg Tab) 1 Tablets By Mouth 2 times a day. Refills: 0. Medications to Continue with No Changes Other Medications apixaban (Eliquis 5 mg oral tablet) 1 Tablets By Mouth 2 times a day. Refills: 0. aspirin (aspirin 81 mg Oral EC Tab) 1 Tablets By Mouth every day. Refills: 0. atorvastatin (Lipitor 40 mg Tab) 1 Tablets By Mouth at bedtime. Refills: 0. digoxin (digoxin 125 mcg (0.125 mg) Tab) 1 Tablets By Mouth every day. Refills: 0. furosemide (furosemide 40 mg Tab) 1 Tablets By Mouth every day. Refills: 0. losartan (losartan 25 mg Tab) 1 Tablets By Mouth every day. Refills: 0. ondansetron (Zofran ODT 4 mg Tab-Dis) 1 Tablets By Mouth every 8 hours. Refills: 0. polyethylene glycol 3350 (polyethylene glycol 3350 17 gram packet) 17 Gram By Mouth every day. Refills: 0. PATIENT EDUCATION INFORMATION: Instructions: Constipation, Adult, Djre-wp-Ldyi; Gastroesophageal Reflux Disease, Adult, Dhfs-wh-Eacp; Abdominal Pain, Adult, Vnib-pt-Ruuk Follow up: With: Address: When: Johan HENRIQUEZ [address] [place], [place] [phone] Business (1) In 3 days 10/08/2023 With: Address: When: Peggy Nazario [address] [place] [address] [employer] ([employer] In 3 days DIAGNOSIS: 1:Constipation Normal [facility] ED Patient Education Noteon 10-05-2023 ED Patient Education Note Gastroenterology Constipation, Adult Constipation is when a person has trouble pooping (having a bowel movement). When you have this condition, you may poop fewer than 3 times a week. Your poop (stool) may also be dry, hard, or bigger than normal. Follow these instructions at home: Eating and drinking ? Eat foods that have a lot of fiber, such as: ? Fresh fruits and vegetables. ? Whole grains. ? Beans. ? Eat less of foods that are low in fiber and high in fat and sugar, such as: ? Burundian fries. ? Hamburgers. ? Cookies. ? Candy. ? Soda. ? Drink enough fluid to keep your pee (urine) pale yellow. General instructions ? Exercise regularly or as told by your doctor. Try to do 150 minutes of exercise each week. ? Go to the restroom when you feel like you need to poop. Do not hold it in. ? Take aznm-ssi-vznbklg and prescription medicines only as told by your doctor. These include any fiber supplements. ? When you poop: ? Do deep breathing while relaxing your lower belly (abdomen). ? Relax your pelvic floor. The pelvic floor is a group of muscles that support the rectum, bladder, and intestines (as well as the uterus in women). ? Watch your condition for any changes. Tell your doctor if you notice any. ? Keep all follow-up visits as told by your doctor. This is important. Contact a doctor if: ? You have pain that gets worse. ? You have a fever. ? You have not pooped for 4 days. ? You vomit. ? You are not hungry. ? You lose weight. ? You are bleeding from the opening of the butt (anus). ? You have thin, pencil-like poop. Get help right away if: ? You have a fever, and your symptoms suddenly get worse. ? You leak poop or have blood in your poop. ? Your belly feels hard or bigger than normal (bloated). ? You have very bad belly pain. ? You feel dizzy or you faint. Summary ? Constipation is when a person poops fewer than 3 times a week, has trouble pooping, or has poop that is dry, hard, or bigger than normal. ? Eat foods that have a lot of fiber. ? Drink enough fluid to keep your pee (urine) pale yellow. ? Take xqnz-eng-ovffgcz and prescription medicines only as told by your doctor. These include any fiber supplements. This information is not intended to replace advice given to you by your health care provider. Make sure you discuss any questions you have with your health care provider. Document Revised: 06/17/2020 Document Reviewed: 06/17/2020 [employer] Patient Education ? 2022 [employer]. Gastroesophageal Reflux Disease, Adult Gastroesophageal reflux (ZUNILDA) [...] gastroesophageal reflux disease (GERD) if the reflux: ? Happens often. ? Causes frequent or very bad symptoms. ? Causes problems such as damage to the [...] The muscle can be weak because of: ? Tobacco use. ? . ? Having a certain type of hernia (hiatal hernia). ? Alcohol use. ? Certain foods and drinks, such as coffee, chocolate, onions, and peppermint. What increases the risk? ? Being overweight. ? Having a disease that affects your connective tissue. ? Taking NSAIDs, such a ibuprofen. What are the signs or symptoms? ? Heartburn. ? Difficult or painful swallowing. ? The feeling of having a lump in the throat. ? A bitter taste in the mouth. ? Bad breath. ? Having a lot of saliva. ? Having an upset or bloated stomach. ? Burping. ? Chest pain. Different conditions can cause chest pain. Make sure you see your doctor if you have chest pain. ? Shortness of breath or wheezing. ? A long-term cough or a cough at night. ? Wearing away of the surface of teeth (tooth enamel). ? Weight loss. How is this treated? ? Making changes to your diet. ? Taking medicine. ? Having surgery. Treatment will depend on how bad your symptoms are. Follow these instructions at home: Eating and drinking ? Follow a diet as told by your doctor. You may need to avoid foods and drinks such as: ? Coffee and tea, with or without caffeine. ? Drinks that contain alcohol. ? Energy drinks and sports drinks. ? Bubbly (carbonated) drinks or sodas. ? Chocolate and cocoa. ? Peppermint and mint flavorings. ? Garlic and onions. ? Hors (more content not included)... Normal [facility] ED Patient Summaryon 024 ED Patient Summary [place] [id number] Patient Discharge Instructions Person Information Name: ASYA ASENCIO I Age: 73 Years Arrival Date: 10/05/2023 17:54:10 Discharge Diagnosis: 1:Constipation Primary Care Physician: Peggy Nazario MD Provider Information Primary Provider: Koby Masterson DO Advanced Technical Internship:Yael The exam and treatment you received in the Emergency Department were for an urgent problem and are not intended as complete care. It is important that you follow up with a doctor, nurse practitioner, or physician?s assistant operations manager for ongoing care. If your symptoms become worse or you do not improve as expected and you are unable to reach your usual health care provider, you should return to the Emergency Department. We are available 24 hours a day. ASYA ASENCIO I has been given the following list of patient education materials, prescriptions and follow-up instructions: Follow-up Instructions: With: Address: When: Johan HENRIQUEZ [address] [place], [place] [phone] [employer] (1) In 3 days 10/08/2023 With: Address: When: Peggy Nazario [address] [place] [address] [employer] (1) In 3 days In the event that this physician does not participate in your insurance network, please consult with your insurance company to find a nearby participating provider. Patient Education Materials: Constipation, Adult, Gjhj-cb-Hyez; Gastroesophageal Reflux Disease, Adult, Wigo-wo-Konl; Abdominal Pain, Adult, Pypr-ce-Yuiu A MESSAGE TO ALL PATIENTS REGARDING OPIOIDS PRESCRIPTION OPIOIDS: WHAT YOU NEED TO KNOW Prescription opioids can be used to help relieve bgoyhctk-kq-nlckjo pain and are often prescribed following a surgery or injury, or for certain health conditions. These medications can be an important part of the treatment but also come with serious risks. It is important to work with your healthcare provider to make sure you are getting the safest, most effective care. WHAT ARE THE RISKS AND SIDE EFFECTS OF OPIOID USE? Prescription opioids carry serious risks of addiction and overdose, especially with prolonged use. An opioid overdose, often marked by slowed breathing, can cause sudden . The use of prescription opioids can have a number of side effects as well, even when taken as directed: ? Tolerance?meaning you might need to take more of the medication for the same pain relief ? Physical dependence?meaning you have symptoms of withdrawal when a medication is stopped ? Increased sensitivity to pain ? Constipation ? Nausea, vomiting, and dry mouth ? Sleepiness and dizziness ? Confusion ? Depression ? Low levels of testosterone that can result in lower sex drive, energy, and strength ? Itching and sweating RISKS ARE GREATER WITH: ? History of drug misuse, substance use disorder, or overdose ? Mental health conditions (such as depression or anxiety) ? Sleep apnea ? Older age (65 years and older) ? Avoid alcohol while taking prescription opioids. Also, unless specifically advised by your health care provider, medications to avoid include: ? Benzodiazepines (such as Xanax or Valium) ? Muscle relaxants (such as Soma or Flexeril) ? Hypnotics (such as Ambien or Lunesta) ? Other prescription opioids KNOW YOUR OPTIONS Talk to your health care provider about ways to manage your pain that don?t involve prescription opioids. Some of these options may actually work better and have fewer risks and side effects. Options may include: ? Pain relievers such as acetaminophen, ibuprofen, and naproxen ? Some medication that are also used for depression or seizures ? Physical therapy and exercise ? Cognitive behavioral therapy, a psychological, goal-directed approach, in which patients learn how to modify physical, behavioral, and emotional triggers of pain and stress. IF YOU ARE PRESCRIBED OPIOIDS FOR PAIN: ? Never take opioids in greater amounts or more often than prescribed. ? Follow up with your primary health care provider. o Work together to create a plan on how to manage your pain. o Talk about ways to help manage your pain that don?t involve prescription opioids. o Talk about any and all concerns and side effects. ? Help prevent misuse and abuse o Never sell or share prescription opioids. o Never use another person?s prescription opioids. ? Store prescription opioids in a secure place and out of reach of others (this may include visitors, children, friends, and family). ? Safely dispose of unused prescription opioids: Find your community drug take-back program or your pharmacy mail-back program, or flush them down the toilet, following guidance from the Food and Drug Administration (www.fda.gov/Drugs/Re sourcesForYou). ? Visit www.cdc.gov/drugoverd ose to learn about the risks of opioids abuse and overdose. ? If (more content not included)... Normal [facility] 10-02-2023 CNPN Normal [facility] Echocardiographyon 4 Echocardiography [id number] 0 [id number]#1 .00[facility] Outside Cardiovascularon Outside Cardiovascular [id number]#1 .00[facility]FF [facility] Outside Cardiovascular [id number]#1 .00[facility] Outside Cardiovascular [id number]#1 .00[facility]FF [facility] Outside Operativeon 09-27-19 24 Outside Operative [id number] 0 [id number]#1 .00[facility]FF [facility] Outside Operative [id number] 0 [id number]#1 .00[facility] Outside Radiologyon 09-27-19 24 Outside Radiology [id number] 0 [id number]#1 .00TIFF Normal [facility] Outside Radiology [id number]#1 .00TIFF Normal [facility] CBC panel Auto (Bld)on 09-26 Erythrocyte distribution width (RBC) [Ratio] 13.2 % Normal 11.5-15.0 [facility] Comment on above: Order Comment: Speci men Type: BLOOD SPECIMENOrdering Facility: [facility] Address: [address] [place] [address] Performed By: #### 5 8410-2 ####[facility] LABIA [id number] [place] [address] [place] Hematocrit (Bld) [Volume fraction] 38.1 % Normal 36.0-46.0 [facility] Comment on above: Order Comment: Speci men Type: BLOOD SPECIMENOrdering Facility: [facility] Address: [address] [place] [address] Performed By: #### 5 8410-2 ####[facility] LABIA [id number] [place] [address] [place] Hemoglobin (Bld) [Mass/Vol] 12.2 g/dL Normal 11.5-15.5 [facility] Comment on above: Order Comment: Speci men Type: BLOOD SPECIMENOrdering Facility: [facility] Address: [address] [place] [address] Performed By: #### 5 8410-2 ####[facility] LABIA [id number] [place] [address] [place] MCH (RBC) [Entitic mass] 29.5 pg Normal 26.0-34.0 [facility] Comment on above: Order Comment: Speci men Type: BLOOD SPECIMENOrdering Facility: [facility] Address: [address] [place] [address] Performed By: #### 5 8410-2 ####[facility] LABIA [id number] [place] [address] [place] MCHC (RBC) [Mass/Vol] 32.0 g/dL Normal 30.5-36.0 [facility] Comment on above: Order Comment: Speci men Type: BLOOD SPECIMENOrdering Facility: [facility] Address: [address] [place] [address] Performed By: #### 5 8410-2 ####[facility] LABCLIA [id number] [place] [address] [place] MCV (RBC) [Entitic vol] 92.0 fL Normal 80.0-100.0 [facility] Comment on above: Order Comment: Speci men Type: BLOOD SPECIMENOrdering Facility: [facility] Address: [address] [place] [address] Performed By: #### 5 8410-2 ####[facility] LABCLIA [id number] [place] [address] [place] Nucleated RBC (Bld) [#/Vol] 10*3/uL Normal <0.01 [facility] Comment on above: Order Comment: Speci men Type: BLOOD SPECIMENOrdering Facility: [facility] Address: [address] [place] [address] Performed By: #### 5 8410-2 ####[facility] LABIA [id number] [place] [address] [place] Platelet mean volume (Bld) [Entitic vol] 10.5 fL Normal 9.0-12.7 [facility] Comment on above: Order Comment: Speci men Type: BLOOD SPECIMENOrdering Facility: [facility] Address: [address] [place] [address] Performed By: #### 5 8410-2 ####[facility] LABCLIA [id number] [place] [address] [place] Platelets (Bld) [#/Vol] 195 10*3/uL Normal 150-400 [facility] Comment on above: Order Comment: Speci men Type: BLOOD SPECIMENOrdering Facility: [facility] Address: [address] [place] [address] Performed By: #### 5 8410-2 ####[facility] LABCLIA [id number] [place] [address] [place] RBC (Bld) [#/Vol] 4.14 10*6/uL Normal 3.90-5.20 [facility] Comment on above: Order Comment: Speci men Type: BLOOD SPECIMENOrdering Facility: [facility] Address: [address] [place] [address] Performed By: #### 5 8410-2 ####[facility] LABIA [id number] [place] [address] [place] WBC (Bld) [#/Vol] 6.03 10*3/uL Normal 3.70-11.00 [facility] Comment on above: Order Comment: Speci men Type: BLOOD SPECIMENOrdering Facility: [facility] Address: [address] [place] [address] Performed By: #### 5 8410-2 ####[facility] LABIA [id number] [place] [address] [place] [facility] CBC PNL BLD AUTOon 09-26 [facility] NRBC # BLD AUTO <0.01 NINF [facility] PLATELET # BLD AUTO 195 [facility] PMV BLD AUTO 10.5 fL 9.0 - 12.7 fL [facility] WBC # BLD AUTO 6.03 [facility] Erythrocyte distribution width (RBC) [Ratio] 13.2 % 11.5 - 15.0 % [facility] Hematocrit (Bld) [Volume fraction] 38.1 % 36.0 - 46.0 % [facility] Hemoglobin (Bld) [Mass/Vol] 12.2 g/dL 11.5 - 15.5 g/dL [facility] MCH (RBC) [Entitic mass] 29.5 pg 26.0 - 34.0 pg [facility] MCHC (RBC) [Mass/Vol] 32.0 g/dL 30.5 - 36.0 g/dL [facility] MCV (RBC) [Entitic vol] 92.0 fL 80.0 - 100.0 fL [facility] RBC (Bld) [#/Vol] 4.14 10*6/uL 3.90 - 5.2 0 m/uL [facility] Specimen Type: BLOOD SPECIMEN [facility] Address: [address] [place] [address] Original Ordering Provider: ALEA GUZMAN [facility] CNOVon 09-26-2023 CNOV Normal [facility] CNPTOUTREACHon 09-26-2023 CNPTOUTREACH Normal [facility] Comprehensive metabolic 2000 panelon 09-26-2023 Albumin [Mass/Vol] 4.2 g/dL Normal 3.9-4.9 [facility] Comment on above: Order Comment: Speci men Type: BLOOD SPECIMENOrdering Facility: [facility] Address: [address] [place] [address] Performed By: #### 3 3762-6, ####[facility] LABCLIA [id number] [place] [address] [place] ALP [Catalytic activity/Vol] 57 U/L Normal 34-123 [facility] Comment on above: Order Comment: Speci men Type: BLOOD SPECIMENOrdering Facility: [facility] Address: [address] [place] [address] Performed By: #### 3 3762-6, ####[facility] LABCLIA [id number] [facility] [place] [address] [place] ALT [Catalytic activity/Vol] 36 U/L Normal 7-38 [facility] Comment on above: Order Comment: Speci men Type: BLOOD SPECIMENOrdering Facility: [facility] Address: [address] [place] [address] Performed By: #### 3 3762-6, 19892-0 ####[facility] LABCLIA [id number] [place] [address] [place] Anion gap [Moles/Vol] 10 mmol/L Normal 9-18 [facility] Comment on above: Order Comment: Speci men Type: BLOOD SPECIMENOrdering Facility: [facility] Address: [address] [place] [address] Performed By: #### 3 3762-6, 18698-6 ####[facility] LABCLIA [id number] [place] [address] [place] AST [Catalytic activity/Vol] 29 U/L Normal 13-35 [facility] Comment on above: Order Comment: Speci men Type: BLOOD SPECIMENOrdering Facility: [facility] Address: [address] [place] [address] Performed By: #### 3 3762-6, 66773-5 ####[facility] LABCLIA [id number] [place] [address] [place] Bilirubin [Mass/Vol] 0.6 mg/dL Normal 0.2-1.3 [facility] Comment on above: Order Comment: Speci men Type: BLOOD SPECIMENOrdering Facility: [facility] Address: [address] [place] [address] Performed By: #### 3 3762-6, 23277-9 ####[facility] LABCLIA [id number] [place] [address] [place] Calcium [Mass/Vol] 9.6 mg/dL Normal 8.5-10.2 [facility] Comment on above: Order Comment: Speci men Type: BLOOD SPECIMENOrdering Facility: [facility] Address: [address] [place] [address] Performed By: #### 3 3762-6, 48093-0 ####[facility] LABCLIA [id number] [place] [address] [place] Chloride [Moles/Vol] 100 mmol/L Normal 97-105 [facility] Comment on above: Order Comment: Speci men Type: BLOOD SPECIMENOrdering Facility: [facility] Address: [address] [place] [address] Performed By: #### 3 3762-6, 23933-2 ####[facility] LABIA [id number] [place] [id number] [place] CO2 [Moles/Vol] 29 mmol/L Normal 22-30 [facility] Comment on above: Order Comment: Speci men Type: BLOOD SPECIMENOrdering Facility: [facility] Address: [address] [place] [address] Performed By: #### 3 3762-6, 51330-7 ####[facility] LABIA [id number] [place] [address] [place] Creatinine [Mass/Vol] 0.82 mg/dL Normal 0.58-0.96 [facility] Comment on above: Order Comment: Speci men Type: BLOOD SPECIMENOrdering Facility: [facility] Address: [address] [place] [address] Performed By: #### 3 3762-6, 33564-8 ####[facility] LABIA [id number] [place] [address] [place] Creatinine and Glomerular filtration rate.predicted panel (S/P/Bld) 75 mL/min/1.73m??? Normal >=60 [facility] Comment on above: Order Comment: Speci men Type: BLOOD SPECIMENOrdering Facility: [facility] Address: [address] [place] [address] Result Comment: Shelley mated Glomerular Filtration Rate [...] actual GFR. Performed By: #### 3 3762-6, ####[facility] LABCLIA [id number] [place] [address] [place] Glucose [Mass/Vol] 129 mg/dL High 74-99 [facility] Comment on above: Order Comment: Speci men Type: BLOOD SPECIMENOrdering Facility: [facility] Address: [address] [place] [address] Result Comment: The [place] [employer] (ADA) provides guidance for cutoff values for fasting glucose and random glucose. The ADA defines fasting as no caloric intake for at least 8 hours. Fasting plasma glucose results between 100 to 125 mg/dL indicate increased risk for diabetes (prediabetes).Fasting plasma glucose results greater than or equal to 126 mg/dL meet the criteria for diagnosis of diabetes. In the absence of unequivocal hyperglycemia, results should be confirmed by repeat testing. In a patient with classic symptoms of hyperglycemia or hyperglycemic crisis, random plasma glucose results greater than or equal to 200 mg/dL meet the criteria for diagnosis of diabetes.Reference: Standards of Medical Care in Diabetes 2016, [place] [employer]. Diabetes Care. 2016.39(Suppl 1). Performed By: #### 3 3762-6, ####[facility] LABCLIA [id number] [place] [address] [place] Potassium [Moles/Vol] 4.3 mmol/L Normal 3.7-5.1 [facility] Comment on above: Order Comment: Speci men Type: BLOOD SPECIMENOrdering Facility: [facility] Address: [address] [place] [address] Performed By: #### 3 3762-6, ####[facility] LABIA [id number] [place] [address] [place] Protein [Mass/Vol] 6.4 g/dL Normal 6.3-8.0 [facility] Comment on above: Order Comment: Speci men Type: BLOOD SPECIMENOrdering Facility: [facility] Address: [address] [place] [address] Performed By: #### 3 3762-6, ####[facility] LABCLIA [id number] [place] [address] [place] Sodium [Moles/Vol] 139 mmol/L Normal 136-144 [facility] Comment on above: Order Comment: Speci men Type: BLOOD SPECIMENOrdering Facility: [facility] Address: [address] [place] [address] Performed By: #### 3 3762-6, ####[facility] LABIA [id number] [place] [address] [place] Urea nitrogen [Mass/Vol] 15 mg/dL Normal 7-21 [facility] Comment on above: Order Comment: Speci men Type: BLOOD SPECIMENOrdering Facility: [facility] Address: [address] [place] [address] Performed By: #### 3 3762-6, ####[facility] LABIA [id number] [place] [address] [place] [id number] 09-26-2023 ECG01 Normal [facility] NT-proBNP [facility]-mCncon 09-26 Natriuretic peptide.B prohormone N-Terminal [Mass/Vol] 2047 pg/mL High <450 [facility] Comment on above: Order Comment: Speci men Type: BLOOD SPECIMENOrdering Facility: [facility] Address: [address] [place] [address] Performed By: #### 3 3762-6, 06540-9 ####[facility] LABIA [id number] [place] [address] [place] URINALYSIS, REFLEX MICROSCOP ICon 09-26-2023 Bacteria LM.HPF (Urine sed) [#/Area] Few Abnormal None Seen /HPF [facility] Bilirubin Ql (U) Negative Negative [facility] Clarity (Unsp spec) Cloudy Abnormal Clear [facility] Color (U) Yellow Yellow [facility] Epithelial cells LM.HPF (Urine sed) [#/Area] Moderate [facility] Epithelial cells LM.HPF (Urine sed) [#/Area] Few Abnormal None Seen /HPF [facility] Glucose Test strip (U) [Mass/Vol] Negative Trace, Negative [facility] Hemoglobin Ql (U) 1+ Abnormal Negative, Trace [facility] Ketones Ql (U) Negative Negative, Trace [facility] Leukocyte esterase Test strip Ql (U) 500 Ghislaine/uL Abnormal Negative, 25 Ghislaine/uL [facility] Nitrite Ql (U) Negative Negative [facility] pH (U) 6.0 [pH] 5.0 - 8.0 [facility] Protein (U) [Mass/Vol] Negative Trace, Negative [facility] RBC LM.HPF (Urine sed) [#/Area] 3-5 /HPF Abnormal 0-3 /HPF [facility] Specific gravity (U) [Rel density] 1.013 1.005 - 1.030 [facility] Urobilinogen Ql (U) Normal Normal [facility] WBC LM.HPF (Urine sed) [#/Area] /[HPF] Abnormal 0-5 /HPF [facility] Bacteria LM.HPF (Urine sed) [#/Area] Few Abnormal None Seen [facility] Comment on above: Order Comment: Speci men Type: URINE SPECIMENOrdering Facility: [facility] Address: [address] [place] [address] Performed By: #### L [id number] ####[facility] LABCLIA [id number] [place] [address] [place] Bilirubin Ql (U) Negative Normal Negative [facility] Comment on above: Order Comment: Speci men Type: URINE SPECIMENOrdering Facility: [facility] Address: [address] [place] [address] Performed By: #### L [id number] ####[facility] LABIA [id number] [place] [address] [place] Clarity (Unsp spec) Cloudy Abnormal Clear [facility] Comment on above: Order Comment: Speci men Type: URINE SPECIMENOrdering Facility: [facility] Address: [address] [place] [address] Performed By: #### L [id number] ####[facility] LABCLIA [id number] [place] [address] [place] Color (U) Yellow Normal Yellow [facility] Comment on above: Order Comment: Speci men Type: URINE SPECIMENOrdering Facility: [facility] Address: [address] [place] [address] Performed By: #### L [id number] ####[facility] LABCLIA [id number] [place] [address] [place] Epithelial cells LM.HPF (Urine sed) [#/Area] Moderate Normal [facility] Comment on above: Order Comment: Speci men Type: URINE SPECIMENOrdering Facility: [facility] Address: [address] [place] [address] Result Comment: Few Performed By: #### L [id number] ####[facility] LABCLIA [id number] [place] [address] [place] Glucose Test strip (U) [Mass/Vol] Negative Normal Trace, Negative [facility] Comment on above: Order Comment: Speci men Type: URINE SPECIMENOrdering Facility: [facility] Address: [address] [place] [address] Performed By: #### L [id number] ####[facility] LABCLIA [id number] [place] [address] [place] Hemoglobin Ql (U) 1+ Abnormal Negative, Trace [facility] Comment on above: Order Comment: Speci men Type: URINE SPECIMENOrdering Facility: [facility] Address: [address] [place] [address] Performed By: #### L [id number] ####[facility] LABCLIA [id number] [place] [address] [place] Ketones Ql (U) Negative Normal Negative, Trace [facility] Comment on above: Order Comment: Speci men Type: URINE SPECIMENOrdering Facility: [facility] Address: [address] [place] [address] Performed By: #### L [id number] ####[facility] LABIA [id number] [place] [address] [place] Leukocyte esterase Test strip Ql (U) 500 Ghislaine/uL Abnormal Negative, 25 Ghislaine/uL [facility] Comment on above: Order Comment: Speci men Type: URINE SPECIMENOrdering Facility: [facility] Address: [address] [place] [address] Performed By: #### L [id number] ####[facility] LABIA [id number] [place] [address] [place] Nitrite Ql (U) Negative Normal Negative [facility] Comment on above: Order Comment: Speci men Type: URINE SPECIMENOrdering Facility: [facility] Address: [address] [place] [address] Performed By: #### L [id number] ####[facility] LABIA [id number] [place] [address] [place] pH (U) 6.0 [pH] Normal 5.0-8.0 [facility] Comment on above: Order Comment: Speci men Type: URINE SPECIMENOrdering Facility: [facility] Address: [address] [place] [address] Performed By: #### L [id number] ####[facility] LABIA [id number] [place] [address] [place] Protein (U) [Mass/Vol] Negative Normal Trace, Negative [facility] Comment on above: Order Comment: Speci men Type: URINE SPECIMENOrdering Facility: [facility] Address: [address] [place] [address] Performed By: #### L [id number] ####[facility] LABIA [id number] [place] [address] [place] RBC LM.HPF (Urine sed) [#/Area] 3-5 /HPF Abnormal 0-3 /HPF [facility] Comment on above: Order Comment: Speci men Type: URINE SPECIMENOrdering Facility: [facility] Address: [address] [place] [address] Performed By: #### L [id number] ####[facility] LABCLIA [id number] [place] [address] [place] Specific gravity (U) [Rel density] 1.013 Normal 1.005-1.030 [facility] Comment on above: Order Comment: Speci men Type: URINE SPECIMENOrdering Facility: [facility] Address: [address] [place] [address] Performed By: #### L [id number] ####[facility] LABIA [id number] [place] [address] [place] Urobilinogen Ql (U) Normal Normal Normal [facility] Comment on above: Order Comment: Speci men Type: URINE SPECIMENOrdering Facility: [facility] Address: [address] [place] [address] Performed By: #### L [id number] ####[facility] LABIA [id number] [place] [address] [place] WBC LM.HPF (Urine sed) [#/Area] /[HPF] Abnormal 0-5 /HPF [facility] Comment on above: Order Comment: Speci men Type: URINE SPECIMENOrdering Facility: [facility] Address: [address] [place] [address] Performed By: #### L [id number] ####[facility] LABIA [id number] [place] [address] [place] CNPNon 09-21-2023 CNPN Normal [facility] BMPon 09-17-2023 Anion gap [Moles/Vol] 9 mmol/L Normal 6-16 [facility] Comment on above: Performed By: #### 2 [id number], [id number], 5512569, 8471424, 4365352, 7937862 #### [facility] [address] [place] [address] BUN/Creat Ratio 24 No Units High 10-20 [facility] Comment on above: Performed By: #### 2 551647, [id number], 6061665, 6717822, 8627187, 0892500 #### [facility] [address] [place] [address] Calcium [Mass/Vol] 9.1 mg/dL Normal 8.9-11.1 [facility] Comment on above: Performed By: #### 2 026036, 72183199, 5085130, 6069476, 5957571, 1687969 #### [facility] [address] [place] [address] Chloride [Moles/Vol] 105 mmol/L Normal 101-111 [facility] Comment on above: Performed By: #### 2 092823, 38468587, 2395213, 6962604, 6030830, 4886863 #### [facility] [address] [place] [address] CO2 [Moles/Vol] 28 mmol/L Normal 21-31 [facility] Comment on above: Performed By: #### 2 708929, 68261793, 6662297, 2156607, 4515148, 2573743 #### [facility] [address] [place] [address] Creatinine [Mass/Vol] 0.7 mg/dL Normal 0.5-1.3 [facility] Comment on above: Performed By: #### 2 478819, 70375135, 0312497, 3527480, 3477654, 6880732 #### [facility] [address] [place] [address] Glucose [Mass/Vol] 83 mg/dL Normal 55-199 [facility] Comment on above: Performed By: #### 2 476258, 18604760, 8310727, 0748647, 4119264, 5427307 #### [facility] [address] [place] [address] Potassium [Moles/Vol] 4.0 mmol/L Normal 3.5-5.3 [facility] Comment on above: Performed By: #### 2 644048, 89284162, 9666324, 3791616, 9216517, 3298220 #### [facility] Laboratory [address] [place] [address] Sodium [Moles/Vol] 138 mmol/L Normal 135-145 [facility] Comment on above: Performed By: #### 2 725463, [id number], 0193825, 5854840, 4662100, 1559037 #### [facility] [address] [place] [address] Urea nitrogen [Mass/Vol] 17 mg/dL Normal 5-21 [facility] Comment on above: Performed By: #### 2 175789, [id number], 1030305, 7485853, 7138157, 3905370 #### [facility] [address] [place] [address] CBC w/ Auto Diffon 4 Basophil Absolute 0.1 E9/L Normal 0.0-0.2 [facility] Comment on above: Performed By: #### 2 860646, 80534977, 6149905, 4658586, 4017286, 3550689 #### [facility] [address] [place] [address] Basophils/100 WBC (Bld) 0.9 % Normal 0.0-2.0 [facility] Comment on above: Performed By: #### 2 342002, 09754905, 0836469, 6560509, 0460940, 3633252 #### [facility] [address] [place] [address] Eos Absolute 0.0 E9/L Normal 0.0-0.5 [facility] Comment on above: Performed By: #### 2 709958, 47693932, 1484966, 5098461, 8362792, 0891483 #### [facility] Laboratory [address] [place] [address] Eosinophils/100 WBC (Bld) 0.7 % Normal 0.0-8.0 [facility] Comment on above: Performed By: #### 2 076026, 48384189, 6804301, 7104333, 2858674, 3001889 #### [facility] Laboratory [address] [place] [address] Erythrocyte distribution width (RBC) [Ratio] 14.1 % Normal 10.9-14.2 [facility] Comment on above: Performed By: #### 2 764092, 00062120, 1947814, 5405449, 5892725, 2511258 #### [facility] [address] [place] [address] Hematocrit (Bld) [Volume fraction] 36.0 % Normal 34.0-46.0 [facility] Comment on above: Performed By: #### 2 171089, 46302047, 5036827, 4633906, 0128511, 8624920 #### [facility] [address] [place] [address] Hemoglobin (Bld) [Mass/Vol] 12.2 g/dL Normal 12.0-16.0 [facility] Comment on above: Performed By: #### 2 563038, 65172772, 9833691, 6169520, 1857723, 7440537 #### [facility] [address] [place] [address] Lymph Absolute 2.1 E9/L Normal 1.0-4.0 [facility] Comment on above: Performed By: #### 2 659067, 64202256, 7571153, 3570931, 2099577, 7009026 #### [facility] [address] [place] [address] Lymphocytes/100 WBC (Bld) 31.6 % Normal 14.0-50.0 [facility] Comment on above: Performed By: #### 2 753910, 72259786, 8536192, 6636265, 4573882, 2652901 #### [facility] [address] [place] [address] MCH (RBC) [Entitic mass] 30.0 pg Normal 27.0-34.0 [facility] Comment on above: Performed By: #### 2 661711, 22564871, 5014540, 2353577, 2656019, 4189513 #### [facility] Laboratory [address] [place] [address] MCHC (RBC) [Mass/Vol] 34.1 g/dL Normal 31.4-36.0 [facility] Comment on above: Performed By: #### 2 724892, 39471749, 7109608, 4967663, 2078927, 2579548 #### [facility] [address] [place], [place] [address] MCV (RBC) [Entitic vol] 88.0 fL Normal 80.0-100.0 [facility] Comment on above: Performed By: #### 2 896912, 77174263, 5129298, 3784335, 5679863, 6627352 #### [facility] Laboratory [address] [place], [place] [address] [place] Absolute 0.6 E9/L Normal 0.2-1.0 [facility] Comment on above: Performed By: #### 2 022054, 99454378, 8157950, 8784551, 3639680, 9188054 #### [facility] [address] [place], [place] [address] Monocytes/100 WBC (Bld) 9.5 % Normal 4.0-14.0 [facility] Comment on above: Performed By: #### 2 307927, 27025173, 6409116, 9662513, 1692116, 6125439 #### [facility] [address] [place], [place] [address] Neutro Absolute 3.8 E9/L Normal 2.0-7.5 [facility] Comment on above: Performed By: #### 2 325011, 56824038, 3732655, 0287922, 2615756, 6932696 #### [facility] [address] [place] [address] Neutro Auto 57.3 % Normal 36.0-75.0 [facility] Comment on above: Performed By: #### 2 829920, 70418197, 1267643, 9642205, 7897479, 6943417 #### [facility] [address] [place] [address] Platelet 186.0 E9/L Normal 150.0-500.0 [facility] Comment on above: Performed By: #### 2 360276, 14917204, 6727699, 7147008, 9004964, 6557880 #### [facility] [address] [place] [address] Platelet mean volume (Bld) [Entitic vol] 8.0 fL Normal 6.4-10.8 [facility] Comment on above: Performed By: #### 2 675624, 35922564, 5580313, 2854085, 4384255, 6696763 #### [facility] [address] [place] [address] RBC 4.1 E12/L Low 4.3-5.9 [facility] Comment on above: Performed By: #### 2 493078, 89955974, 7335844, 8915875, 2828312, 0859702 #### [facility] [address] [place] [address] WBC 6.6 E9/L Normal 4.0-11.0 [facility] Comment on above: Performed By: #### 2 729009, 71114410, 3250091, 4617509, 9053347, 1770625 #### [facility] [address] [place] [address] CHEMISTRYOrdered By: SYSTEM SYSTEM on 09-17-2023 Anion [...] Sensitivity Troponin I Instructions For Use, Marlys Walkerton, March 2018) Urea nitrogen [Mass/Vol] 17 mg/dL Normal 5 - 21 mg/dL Remisol Chem Urea nitrogen/Creatinine [Mass ratio] 24 mg/mg High 10 - 20 Remisol Chem CHEMISTRYOrdered By: Lab ROP User on 09-17-2023 Glucose [Mass/Vol] 79 mg/dL Normal 55 - 99 mg/dL [facility] POC Subsection Comment on above: Result Comment: Neli cain RN/ POC Device SN [id number] Invalid Interpretation Code [facility] POC Subsection POC User ID [id number] 1 Invalid Interpretation Code [facility] POC Subsection POC Username ZIGGY HOLGUIN Invalid Interpretation Code [facility] POC Subsection CNPNon 09-17-2023 [facility] COAGULATIONOrdered By: Han Frost on 09-17-2023 aPTT Coag (PPP) [Time] 38.2 s High 25.1 - 36.5 second(s) [facility] Auto Coag Comment on above: Interpretive Data: [...] the same coagulation reagent and instrumentation as [facility]. Currently there are no coagulation studies available worldwide for children to 14 days, and no normal ranges. Heparin therapeutic range (represented by Anti-Factor Xa activity of 0.2 - 0.4 U/mL) corresponds to PTT of 56.6 - 109.0 sec. INR Coag (PPP) [Relative time] 1.4 {INR} Invalid Interpretation Code [facility] Auto Coag Comment on above: Interpretive Data: I NR results are specifically intended to assess patients stabilized on long-term Anticoagulation therapy suggested INR s Less Intensive Anticoagulation 2.0 3.0 Conventional Range 3.0 4.5 PT Coag (PPP) [Time] 16.4 s High 9.4 - 1 2.5 second(s) [facility] Auto Coag Comment on above: Interpretive Data: [...] from a study by Roel Loco et alElise prepared from 1437 samples obtained at 7 different centers using the same coagulation reagent and instrumentation as [facility]. Currently there are no coagulation studies available worldwide for children to 14 days, and no normal ranges. Capillary Glucose POCon 02-0 Glucose [Mass/Vol] 79 mg/dL Normal 55-99 [facility] Comment on above: Result Comment: Neli cain RN/ Performed By: #### 2 [id number] ####[facility] [address] [place] [address] Consent for Treatmenton Consent for Treatment [id number] .00TIFF Normal [facility] Discharge Instructionson Discharge Instructions [id number] 1.00TIFF Normal [facility] ED Clinical Summaryon 2023 ED Clinical Summary [address] [address] ED Clinical Summary Person Information Name: ASYA ASENCIO/[facility] Age: 73 Years : 1950 Sex: Female Language: [place] PCP: Aravind MCMAHON, Peggy Mcmillan Marital Status: Visit Id: Visit Reason: Chest pain; Nausea; Anxiety; TIGHTENING IN CHEST Speciality: Acuity: 3 Enc Type: Emergency Med Service: Emergency Arrival: 09/17/2023 04:55:16 Discharge: 09/17/2023 06:16:16 LOS: 000 01:21 Checkin: 09/17/2023 04:55:16 Checkout: 09/17/2023 06:16:16 Dispo Type: Home (Routine DC) EVENTS: Event Name Event Status Request Date/Time Start Date/Time Complete Date/Time Arrive Complete 09/17/2023 04:55:16 09/17/2023 04:55:16 09/17/2023 04:55:16 Document Home Meds Request 09/17/2023 04:55:16 Triage Complete 09/17/2023 04:55:16 09/17/2023 05:08:28 09/17/2023 05:08:28 EKG Complete 09/17/2023 04:57:22 09/17/2023 05:04:19 Dr Exam Complete 09/17/2023 04:58:38 09/17/2023 04:58:38 09/17/2023 04:58:38 Registration Complete 09/17/2023 04:58:38 09/17/2023 05:01:12 09/17/2023 05:01:12 Reg Complete Request 09/17/2023 05:01:12 Reg Bed Request Complete 09/17/2023 05:01:12 09/17/2023 05:01:12 09/17/2023 05:01:12 Bed Assign Complete 09/17/2023 05:01:46 09/17/2023 05:01:46 09/17/2023 05:01:46 RN Exam Complete 09/17/2023 05:01:46 09/17/2023 05:19:29 09/17/2023 05:19:29 Isolation Screening Request 09/17/2023 05:08:29 Meds Admin Complete 09/17/2023 05:14:24 09/17/2023 05:25:33 Pending Labs Complete 09/17/2023 05:14:24 09/17/2023 06:01:47 Lab Complete 09/17/2023 05:14:24 09/17/2023 05:57:01 Patient Care Request 09/17/2023 05:14:24 RT Request 09/17/2023 05:14:24 X-Ray Complete 09/17/2023 05:14:24 09/17/2023 05:38:44 09/17/2023 05:39:20 Pending Labs Complete 09/17/2023 05:19:49 09/17/2023 05:19:49 09/17/2023 05:19:49 Pending Labs Complete 09/17/2023 05:36:07 09/17/2023 05:36:07 09/17/2023 05:57:01 Lab Complete 09/17/2023 05:36:07 09/17/2023 05:36:07 09/17/2023 05:57:01 Wet Read Request 09/17/2023 05:39:20 Discharge Complete 09/17/2023 06:05:47 09/17/2023 06:16:25 09/17/2023 06:16:25 Transfer Complete 09/17/2023 06:16:25 09/17/2023 06:16:25 09/17/2023 06:16:25 ADDRESS: [address] [place] [address] [address] [facility] [id number] PHYS DOC NOTES: MEDICAL INFORMATION: Prescriptions Given: Medications to Continue with No Changes Other Medications apixaban (Eliquis 5 mg oral tablet) 1 Tablets By Mouth 2 times a day. Refills: 0. aspirin (aspirin 81 mg Oral EC Tab) 1 Tablets By Mouth every day. Refills: 0. atorvastatin (Lipitor 40 mg Tab) 1 Tablets By Mouth at bedtime. Refills: 0. carvedilol (carvedilol 3.125 mg Tab) 1 Tablets By Mouth 2 times a day. Refills: 0. digoxin (digoxin 125 mcg (0.125 mg) Tab) 1 Tablets By Mouth every day. Refills: 0. furosemide (furosemide 40 mg Tab) 1 Tablets By Mouth every day. Refills: 0. lorazepam (LORazepam 1 mg Tab) losartan (losartan 25 mg Tab) 1 Tablets By Mouth every day. Refills: 0. ondansetron (Zofran ODT 4 mg Tab-Dis) 1 Tablets By Mouth every 8 hours. Refills: 0. polyethylene glycol 3350 (polyethylene glycol 3350 17 gram packet) 17 Gram By Mouth every day. Refills: 0. PATIENT EDUCATION INFORMATION: Instructions: Drug Allergy; Heartburn Follow up: With: Address: [place]: Peggy Nazario [address] [place] [id number] Business (1) In 3 days DIAGNOSIS: Acid reflux; Medication reaction Normal [facility] ED Note-Physicianon 09-17-19 ED Note-Physician Basic Information Time Seen: Parveen Ayers DO 09/17/2023 04:58 Chief Complaint states having side effects of valsartan. states only taking 1/2 tab. nausea. chest tightness. anxiety. History of Present Illness HPI: Patient is a 73-year-old female past medical history of GERD, anxiety, pretension, hyperlipidemia who presents the ED for medication reaction. Patient states that her doctor had recently changed her blood pressure medication to valsartan and she has been having bad reactions to the medication. She states that she is waking in the middle the night feeling shaky with headache and epigastric abdominal burning and feeling like her blood pressure is going crazy. She states that she had been seen here in this facility shortly after being started on the medication and afterwards she spoke to her physician again who encouraged her to try a half of the dose. Last night she took a half a dose and 2 hours later she awoke again with the same symptoms of tremor, epigastric burning, headache, and feeling unwell. ROS: Pertinent review of systems conducted and is negative except as noted above. Physical exam: General: Anxious but in no distress HEENT: Mucous membranes moist Neuro: awake and alert Neck: supple, trachea midline Card: Heart regular rate and rhythm no murmur Resp: Lungs clear to auscultation no wheeze or rhonchi Abd: Soft and nondistended. Minimal epigastric tenderness without rebound or guarding. Ext: No gross deformity or edema Physical Exam Vitals & Measurements T: 36.1 ?C(Tympanic) HR: 85(Peripheral) RR: 20 BP: 140/58 SpO2: 98% HT: 165 cm WT: 52 kg BMI: 19.1 Medical Decision Making MEDICAL DECISION MAKING Number and Complexity of Problems Differential Diagnosis: [] [facility] Data External documents reviewed: N/A My EKG interpretation: Noted in chart if applicable My CT interpretation: N/A My X-ray interpretation: Noted in chart if applicable My Ultrasound interpretation: N/A Decision rules/scores evaluated: N/A Discussed with: N/A Treatment and Disposition ED Course: Patient is nontoxic but very anxious appearing. She states she has been having these same symptoms every time she takes her valsartan and last night tried taking a half of the dose but the symptoms occurred at the same. Will obtain a workup here in the ED and give her IV fluids as well as a dose of Maalox for symptoms. Workup is overall reassuring. Patient had improvement of the epigastric burning after the medication. We discussed that she may be having adverse reactions to the medication and that she should discontinue the medication and speak with her physician. This time if the patient is stable for discharge. Shared decision making: As above Code status: N/A Assessment/Plan Acid reflux (K21.9: Gastro-esophageal reflux disease without esophagitis) Medication reaction (T50.905A: Adverse effect of unspecified drugs, medicaments and biological substances, initial encounter) Orders: Al hydroxide/Mg hydroxide/simethicone , 30 mL, Susp-Oral, Oral, Once, Stop date [...] Troponin 0 Hr. XR Chest Single View Medications Administered Given Al hydroxide/Mg hydroxide/simethicone 200 mg-200 mg-20 mg/5 mL oral suspension, 30 mL, Oral lidocaine Viscous Top 2% Lashonda, 200 mg, Oral NS 500 ml Bolus, 500 mL, IV Disposition Plan Discharge Prescription List Prescriptions No active prescription medications Follow-up With When Contact Information Peggy Nazario In 3 days [address] [place] [address] Business (1) Additional Instructions: Patient Education Drug Allergy Heartburn Problem List/Past Medical History Ongoing acid reflux Acute gastroenteritis anxiety Atrophic vaginitis Cystocele with prolapse Dysuria Feeling of incomplete bladder emptying Former smoker History of urethral stricture Injury of nose Nocturia Other urethral stricture, female Poor urinary stream Renal lesion Stranguria Superficial laceration of face Suprapubic pain Urethral stricture Urinary frequency Urinary hesitancy Urinary urgency Weak urine stream Historical No qualifying data Procedure/Surgical History Transesophageal echocardiogram (07/21/2023), Cardiac catheterization, combined right and left heart (07/05/2023), Cystourethroscopy with dilation of urethral stricture (10/25/2022), Cystoscopy (02/23/2021), Dilation of urethra (02/01/2019), C (more content not included)... Normal [facility] Comment on above: Result Comment: Elec tronically Signed By: Parveen Ayers DO\.br\Date and Time Signed: 09/17/23 06:06 EST ED Patient Education Noteon 09-17-2023 ED Patient Education Note Gastroenterology Heartburn Heartburn is a type of pain or discomfort that can happen in the throat or chest. It is often described as a burning pain. It may also cause a bad, acid-like taste in the mouth. Heartburn may feel worse when you lie down or bend over, and it is often worse at night. Heartburn may be caused by stomach contents that move back up into the esophagus (reflux). Follow these instructions at home: Eating and drinking ? Avoid certain foods and drinks as told by your health care provider. This may include: ? Coffee and tea, with or without caffeine. ? Drinks that contain alcohol. ? Energy drinks and sports drinks. ? Carbonated drinks or sodas. ? Chocolate and cocoa. ? Peppermint and mint flavorings. ? Garlic and onions. ? Horseradish. ? Spicy and acidic foods, including peppers, chili powder, mae powder, vinegar, hot sauces, and barbecue sauce. ? Gibson fruit juices and citrus fruits, such as oranges, ronald, and limes. ? Tomato-based foods, such as red sauce, chili, salsa, and pizza with red sauce. ? Fried and fatty foods, such as donuts, romanian fries, potato chips, and high-fat dressings. ? High-fat meats, such as hot dogs and fatty cuts of red and white meats, such as rib eye steak, sausage, ham, and ambriz. ? High-fat dairy items, such as whole milk, butter, and cream cheese. ? Eat small, frequent meals instead of large meals. ? Avoid drinking large amounts of liquid with your meals. ? Avoid eating meals during the 2?3 hours before bedtime. ? Avoid lying down right after you eat. ? Do not exercise right after you eat. Lifestyle ? If you are overweight, reduce your weight to an amount that is healthy for you. Ask your health care provider for guidance about a safe weight loss goal. ? Do not use any products that contain nicotine or tobacco. These products include cigarettes, chewing tobacco, and vaping devices, such as e-cigarettes. These can make symptoms worse. If you need help quitting, ask your health care provider. ? Wear loose-fitting clothing. Do not wear anything tight around your waist that causes pressure on your abdomen. ? Raise (elevate) the head of your bed about 6 inches (15 cm) when you sleep. You can use a wedge to do this. ? Try to reduce your stress, such as with yoga or meditation. If you need help reducing stress, ask your health care provider. Medicines ? Take vrug-kvy-idgyccs and prescription medicines only as told by your health care provider. ? Do not take aspirin or NSAIDs, such as ibuprofen, unless your health care provider told you to do so. ? Stop medicines only as told by your health care provider. If you stop taking some medicines too quickly, your symptoms may get worse. General instructions ? Pay attention to any changes in your symptoms. ? Keep all follow-up visits. This is important. Contact a health care provider if: ? You have new symptoms. ? You have unexplained weight loss. ? You have difficulty swallowing, or it hurts to swallow. ? You have wheezing or a persistent cough. ? Your symptoms do not improve with treatment. ? You have frequent heartburn for more than 2 weeks. Get help right away if: ? You suddenly have pain in your arms, neck, jaw, teeth, or back. ? You suddenly feel sweaty, dizzy, or light-headed. ? You have chest pain or shortness of breath. ? You vomit and your vomit looks like blood or coffee grounds. ? Your stool is bloody or black. These symptoms may represent a serious problem that is an emergency. Do not wait to see if the symptoms will go away. Get medical help right away. Call your local emergency services (911 in the [place] Do not drive yourself to the hospital. Summary ? Heartburn is a type of pain or discomfort that can happen in the throat or chest. It is often described as a burning pain. It may also cause a bad, acid-like taste in the mouth. ? Avoid certain foods and drinks as told by your health care provider. ? Take hrij-onp-feyepmp and prescription medicines only as told by your health care provider. Do not take aspirin or NSAIDs, such as ibuprofen, unless your health care provider told you to do so. ? Contact a health care provider if your symptoms do not improve or they get worse. This information is not intended to replace advice given to you by your health care provider. Make sure you discuss any questions you have with your health care provider. Document Revised: 02/03/2021 Document Reviewed: 02/03/2021 Elsevier Patient Education ? 2022 [employer]. Pharmacology Drug Allergy A drug allergy happens when the body's disease-fighting system (immune system) reacts badly to a medicine. Drug allergies range from mild to severe. A drug allergy is not the same as a medicine side effect, which is a known possible reaction to the drug. A drug allergy is a (more content not included)... Normal [facility] ED Patient Summaryon 024 ED Patient Summary [address] [address] Patient Discharge Instructions Person Information Name: ASYA ASENCIO I Age: 73 Years Arrival Date: 09/17/2023 04:55:16 Discharge Diagnosis: Acid reflux; Medication reaction Primary Care Physician: Peggy Nazario MD Provider Information Primary Provider: Parveen Ayers DO Advanced Technical Internship:None The exam and treatment you received in the Emergency Department were for an urgent problem and are not intended as complete care. It is important that you follow up with a doctor, nurse practitioner, or physician?s assistant operations manager for ongoing care. If your symptoms become worse or you do not improve as expected and you are unable to reach your usual health care provider, you should return to the Emergency Department. We are available 24 hours a day. ASYA ASENCIO I has been given the following list of patient education materials, prescriptions and follow-up instructions: Follow-up Instructions: With: Address: When: Peggy [place] [address] Business (1) In 3 days In the event that this physician does not participate in your insurance network, please consult with your insurance company to find a nearby participating provider. Patient Education Materials: Drug Allergy; Heartburn A MESSAGE TO ALL PATIENTS REGARDING OPIOIDS PRESCRIPTION OPIOIDS: WHAT YOU NEED TO KNOW Prescription opioids can be used to help relieve pofdlusd-pm-gdtexm pain and are often prescribed following a surgery or injury, or for certain health conditions. These medications can be an important part of the treatment but also come with serious risks. It is important to work with your healthcare provider to make sure you are getting the safest, most effective care. WHAT ARE THE RISKS AND SIDE EFFECTS OF OPIOID USE? Prescription opioids carry serious risks of addiction and overdose, especially with prolonged use. An opioid overdose, often marked by slowed breathing, can cause sudden . The use of prescription opioids can have a number of side effects as well, even when taken as directed: ? Tolerance?meaning you might need to take more of the medication for the same pain relief ? Physical dependence?meaning you have symptoms of withdrawal when a medication is stopped ? Increased sensitivity to pain ? Constipation ? Nausea, vomiting, and dry mouth ? Sleepiness and dizziness ? Confusion ? Depression ? Low levels of testosterone that can result in lower sex drive, energy, and strength ? Itching and sweating RISKS ARE GREATER WITH: ? History of drug misuse, substance use disorder, or overdose ? Mental health conditions (such as depression or anxiety) ? Sleep apnea ? Older age (65 years and older) ? Avoid alcohol while taking prescription opioids. Also, unless specifically advised by your health care provider, medications to avoid include: ? Benzodiazepines (such as Xanax or Valium) ? Muscle relaxants (such as Soma or Flexeril) ? Hypnotics (such as Ambien or Lunesta) ? Other prescription opioids KNOW YOUR OPTIONS Talk to your health care provider about ways to manage your pain that don?t involve prescription opioids. Some of these options may actually work better and have fewer risks and side effects. Options may include: ? Pain relievers such as acetaminophen, ibuprofen, and naproxen ? Some medication that are also used for depression or seizures ? Physical therapy and exercise ? Cognitive behavioral therapy, a psychological, goal-directed approach, in which patients learn how to modify physical, behavioral, and emotional triggers of pain and stress. IF YOU ARE PRESCRIBED OPIOIDS FOR PAIN: ? Never take opioids in greater amounts or more often than prescribed. ? Follow up with your primary health care provider. o Work together to create a plan on how to manage your pain. o Talk about ways to help manage your pain that don?t involve prescription opioids. o Talk about any and all concerns and side effects. ? Help prevent misuse and abuse o Never sell or share prescription opioids. o Never use another person?s prescription opioids. ? Store prescription opioids in a secure place and out of reach of others (this may include visitors, children, friends, and family). ? Safely dispose of unused prescription opioids: Find your community drug take-back program or your pharmacy mail-back program, or flush them down the toilet, following guidance from the Food and Drug Administration (www.fda.gov/Drugs/Re sourcesForYou). ? Visit www.cdc.gov/drugoverd ose to learn about the risks of opioids abuse and overdose. ? If you believe you may be struggling with addiction, tell your health animal care worker and ask for guidance or call [facility]S National Helpline at 9-827-869-FOIK. z Source: [place] Department of Health and (more content not included)... Normal [facility] HEMATOLOGYOrdered By: SYSTEM SYSTEM on 09-17-2023 [...] Normal 80.0 - 100.0 fL Remisol Heme Treutlen Absolute 0.6 E9/L Normal 0.2 - 1.0 [...] Remisol Heme Monitor Recordon 09-17-2023 Monitor Record [id number]# 1.00TIFF Normal [facility] PT & PTTon 09-17-2023 aPTT Coag (PPP) [Time] 38.2 second(s) High 25.1-36.5 [facility] Comment on above: Result Comment: Para [...] the same coagulation reagent and instrumentation as [facility]. Currently there are no coagulation studies available worldwide for children to 14 days, and no normal ranges. Heparin therapeutic range (represented by Anti-Factor Xa activity of 0.2 - 0.4 U/mL) corresponds to PTT of 56.6 - 109.0 sec. Performed By: #### 2 440366, 44817065, 2979201, 6671926, 0996371, 1059657 #### [facility] [address] [place] [address] INR Coag (PPP) [Relative time] 1.4 {INR} Invalid Interpretation Code [facility] Comment on above: Result Comment: INR results are specifically intended to assess patients stabilized on long-term Anticoagulation therapy suggested INR?s ?Less Intensive Anticoagulation? 2.0 ? 3.0 Conventional Range 3.0 ? 4.5 Performed By: #### 2 216378, 76610443, 0563006, 3914982, 0048600, 8488879 #### [facility] [address] [place] [address] PT Coag (PPP) [Time] 16.4 second(s) High 9.4-12.5 [facility] Comment on above: Result Comment: 15 [...] the same coagulation reagent and instrumentation as [facility]. Currently there are no coagulation studies available worldwide for children to 14 days, and no normal ranges. Performed By: #### 2 949944, 40172617, 6854911, 7680720, 7564164, 3618725 #### [facility] [address] [place] [address] Troponin 0 Hr.on 09-17-2023 Troponin 11.70 pg/mL Normal 10.10-27.10 [facility] Comment on above: Result Comment: The 95% CI (Confidence Interval) PPV (Positive Predictive Value) for myocardial infarction in females is 38 pg/mL, in males 51 pg/mL. The results should be used in conjunction with clinical conditions of myocardial infarction. (Access High Sensitivity Troponin I Instructions For Use, Marlys Walkerton, March 2018) Performed By: #### 2 365404, [id number], 8366033, 5422243, 0473830, 2337330 #### [facility] [address] [place] [address] XR Chest Single Viewon 09-17 XR Chest Single View Exam Date/Time: 09/17/2023 05:39 EST Reason for Exam: Chest pain Report IMPRESSION: NO ACUTE CARDIOPULMONARY DISEASE. CLINICAL HISTORY: Chest pain COMPARISON: September 12, 2023 FINDINGS: Osseous structures intact. Cardiopericardial silhouette normal. Pulmonary vasculature normal. Lungs clear Ordering Provider: Parveen Ayers FINAL REPORT Dictated: 09/17/2023 8:08 am Moiz Carreno MD Signed (Electronic Signature): 09/17/2023 8:08 am Signed by: Moiz Carreno MD Transcribed by: ARAVIND Technologist: JON Technical Comments Radiation Dose: Ka,r in mGy = na DAP = na Normal [facility] eGFRon 09-17-2023 eGFR 90 mL/min/1.73 m2 Normal >=59 [facility] Comment on above: Order Comment: Order added by Discern Expert. Performed By: #### 2 106905, 67102357, 9869715, 8188058, 0324253, 8629570 #### [facility] [address] [place] [address] BMPon 09-12-2023 Anion gap [Moles/Vol] 12 mmol/L Normal 6-16 [facility] Comment on above: Performed By: #### 2 838470, 94422191, 2800934, 2784092, 6808569, 0198785 #### [facility] [address] [place] [address] BUN/Creat Ratio 27 No Units High 10-20 [facility] Comment on above: Performed By: #### 2 275711, 87115634, 0668653, 1773297, 3198245, 0803384 #### [facility] [address] [place] [address] Calcium [Mass/Vol] 9.5 mg/dL Normal 8.9-11.1 [facility] Comment on above: Performed By: #### 2 792102, 79293459, 2406431, 1120738, 1116471, 2971386 #### [facility] [address] [place] [address] Chloride [Moles/Vol] 101 mmol/L Normal 101-111 [facility] Comment on above: Performed By: #### 2 859289, 48858033, 9076948, 9100109, 2407562, 3249618 #### [facility] [address] [place] [address] CO2 [Moles/Vol] 27 mmol/L Normal 21-31 [facility] Comment on above: Performed By: #### 2 790820, 67672009, 4913758, 9562124, 8761692, 5583935 #### [facility] [address] [place] [address] Creatinine [Mass/Vol] 0.9 mg/dL Normal 0.5-1.3 [facility] Comment on above: Performed By: #### 2 563832, 52252492, 2899449, 8527913, 0247651, 4680316 #### [facility] [address] [place] [address] Glucose [Mass/Vol] 87 mg/dL Normal 55-199 [facility] Comment on above: Performed By: #### 2 529739, 53544968, 2122360, 8904695, 6664500, 5609228 #### [facility] [address] [place] [address] Potassium [Moles/Vol] 4.9 mmol/L Normal 3.5-5.3 [facility] Comment on above: Performed By: #### 2 231524, 36587485, 2611903, 1872668, 5391315, 5039660 #### [facility] [address] [place] [address] Sodium [Moles/Vol] 135 mmol/L Normal 135-145 [facility] Comment on above: Performed By: #### 2 321515, 32209803, 6822553, 5143917, 2192443, 7295082 #### [facility] [address] [place] [address] Urea nitrogen [Mass/Vol] 24 mg/dL High 5-21 [facility] Comment on above: Performed By: #### 2 422769, 43725988, 5201993, 7783103, 1164050, 0202289 #### [facility] [address] [place] [address] CBC w/ Auto Diffon 4 Basophil Absolute 0.1 E9/L Normal 0.0-0.2 [facility] Comment on above: Performed By: #### 2 863499, 72172646, 1970713, 5431540, 1681669, 1271017 #### [facility] [address] [place] [address] Basophils/100 WBC (Bld) 1.1 % Normal 0.0-2.0 [facility] Comment on above: Performed By: #### 2 904191, 43775773, 2841273, 7746639, 0188974, 0973066 #### [facility] [address] [place] [address] Eos Absolute 0.1 E9/L Normal 0.0-0.5 [facility] Comment on above: Performed By: #### 2 470798, 98395403, 0123601, 5630943, 6683943, 0916827 #### [facility] [address] [place] [address] Eosinophils/100 WBC (Bld) 1.2 % Normal 0.0-8.0 [facility] Comment on above: Performed By: #### 2 323505, 63692716, 2089551, 0298000, 5749965, 4745828 #### [facility] [address] [place] [address] Erythrocyte distribution width (RBC) [Ratio] 13.7 % Normal 10.9-14.2 [facility] Comment on above: Performed By: #### 2 449262, 84456518, 4564373, 7020108, 3793599, 8364716 #### [facility] [address] [place] [address] Hematocrit (Bld) [Volume fraction] 41.0 % Normal 34.0-46.0 [facility] Comment on above: Performed By: #### 2 714524, 62787206, 2297851, 2676216, 7337188, 9427271 #### [facility] [address] [place] [address] Hemoglobin (Bld) [Mass/Vol] 13.4 g/dL Normal 12.0-16.0 [facility] Comment on above: Performed By: #### 2 050283, 00406803, 3631850, 5517345, 1477180, 5191948 #### [facility] [address] [place] [address] Lymph Absolute 1.9 E9/L Normal 1.0-4.0 [facility] Comment on above: Performed By: #### 2 091946, 00831029, 1199398, 2147150, 5790595, 3432777 #### [facility] [address] [place] [address] Lymphocytes/100 WBC (Bld) 25.9 % Normal 14.0-50.0 [facility] Comment on above: Performed By: #### 2 190428, 14982162, 1707712, 4965336, 3904283, 0732528 #### [facility] [address] [place] [address] MCH (RBC) [Entitic mass] 29.5 pg Normal 27.0-34.0 [facility] Comment on above: Performed By: #### 2 278415, 23176241, 9322988, 7250665, 8262208, 6401568 #### [facility] [address] [place] [address] MCHC (RBC) [Mass/Vol] 32.9 g/dL Normal 31.4-36.0 [facility] Comment on above: Performed By: #### 2 403527, 15284506, 5868605, 7778657, 1213731, 4594565 #### [facility] [address] [place] [address] MCV (RBC) [Entitic vol] 89.6 fL Normal 80.0-100.0 [facility] Comment on above: Performed By: #### 2 549805, 79606406, 6883014, 4008184, 3457340, 6814482 #### [facility] [address] [place] [address] Treutlen Absolute 0.6 E9/L Normal 0.2-1.0 [facility] Comment on above: Performed By: #### 2 743760, 50506480, 3585330, 7747260, 9231196, 6985356 #### [facility] [address] [place] [address] Monocytes/100 WBC (Bld) 8.0 % Normal 4.0-14.0 [facility] Comment on above: Performed By: #### 2 376710, 15728536, 3736281, 4593462, 7993810, 7350622 #### [facility] [address] [place] [address] Neutro Absolute 4.7 E9/L Normal 2.0-7.5 [facility] Comment on above: Performed By: #### 2 869187, 19495803, 8353318, 8679515, 2239206, 9649273 #### [facility] [address] [place] [address] Neutro Auto 63.8 % Normal 36.0-75.0 [facility] Comment on above: Performed By: #### 2 940894, 12333418, 9910863, 4101232, 8200448, 4761908 #### [facility] [address] [place] [address] Platelet 214.0 E9/L Normal 150.0-500.0 [facility] Comment on above: Performed By: #### 2 141988, 33228691, 8042576, 2546011, 8815850, 0318390 #### [facility] [address] [place] [address] Platelet mean volume (Bld) [Entitic vol] 8.2 fL Normal 6.4-10.8 [facility] Comment on above: Performed By: #### 2 821951, 21422969, 1367112, 6712716, 7638479, 4062754 #### [facility] [address] [place] [address] RBC 4.6 E12/L Normal 4.3-5.9 [facility] Comment on above: Performed By: #### 2 278200, 04806348, 1407964, 8836560, 9426149, 2899809 #### [facility] [address] [place] [address] WBC 7.4 E9/L Normal 4.0-11.0 [facility] Comment on above: Performed By: #### 2 696627, 70405427, 2367584, 1255453, 1794493, 3236200 #### [facility] [address] [place] [address] CHEMISTRYOrdered By: Maryan Frost on 09-12-2023 U [...] Sensitivity Troponin I Instructions For Use, Marlys Walkerton, March 2018) Urea nitrogen [Mass/Vol] 24 mg/dL High 5 - 21 mg/dL Remisol Chem Urea nitrogen/Creatinine [Mass ratio] 27 mg/mg High 10 - 20 Remisol Chem CHEMISTRYOrdered By: Lab ROP User on 09-12-2023 Glucose [Mass/Vol] 96 mg/dL Normal 55 - 99 mg/dL [facility] POC Subsection Comment on above: Result Comment: Neli cain RN/ POC Device SN [id number] Invalid Interpretation Code [facility] POC Subsection POC User ID [id number] 1 Invalid Interpretation Code [facility] POC Subsection POC Username CORINNE COTA Invalid Interpretation Code [facility] POC Subsection CNPNon 09-12-2023 CNPN Normal [facility] CT Head or Brain w/o Contras ton 09-12-2023 CT Head or Brain w/o Contrast Exam Date/Time: 09/12/2023 05:04 EST Reason for Exam: Delirium;Other (please specify) Report IMPRESSION: NO ACUTE INTRACRANIAL PROCESS IDENTIFIED. EXAM: CT Head or Brain w/o Contrast DATE: 09/12/2023 5:04 AM CLINICAL HISTORY: Headaches, lightheadedness, shakiness, and anxious after recent medication change. COMPARISON: None available. TECHNIQUE: Routine. All CT scans at this facility use dose modulation, iterative reconstruction, and/or weight based dosing when appropriate to reduce radiation dose to as low as reasonably achievable. FINDINGS: There is no intracranial hemorrhage, mass effect, midline shift, extra-axial collection, evidence of hydrocephalus, skull fracture, or a recent ischemic infarct identified. There is no significant atrophy, or white matter changes, for age. The mastoid air cells and visualized paranasal sinuses are essentially clear. Ordering Provider: Parveen Ayers FINAL REPORT Dictated: 09/12/2023 5:29 am London Padilla MD Signed (Electronic Signature): 09/12/2023 5:29 am Signed by: London Padilla MD Transcribed by: ARAVIND Technologist: JON Technical Comments Contrast: None Normal [facility] Capillary Glucose POCon 08-16 Glucose [Mass/Vol] 96 mg/dL Normal 55-99 [facility] Comment on above: Result Comment: Neli cain RN/ Performed By: #### 2 043571, 39326649, 1174797, 1829521, 3720910, 6162467 #### [facility] [address] [place] [address] Consent for Treatmenton 08-16 Consent for Treatment [id number] .00TIFF Normal [facility] Discharge Instructionson Discharge Instructions [id number] .00TIFF Normal [facility] ED Clinical Summaryon 2023 ED Clinical Summary [address] [address] ED Clinical Summary Person Information Name: ASYA ASENCIO I [place] Age: 73 Years : 1950 Sex: Female Language: [place] PCP: Aravind MCMAHON, Peggy Mcmillan Marital Status: Visit Id: Visit Reason: Allergic reaction - minor; Anxiety; REACTION TO MEDICINE Speciality: Acuity: 3 Enc Type: Emergency Med Service: Emergency Arrival: 09/12/2023 04:02:15 Discharge: 09/12/2023 06:47:36 LOS: 000 02:45 Checkin: 09/12/2023 04:02:15 Checkout: 09/12/2023 06:47:36 Dispo Type: Home (Routine DC) EVENTS: Event Name Event Status Request Date/Time Start Date/Time Complete Date/Time Arrive Complete 09/12/2023 04:02:15 09/12/2023 04:02:15 09/12/2023 04:02:15 Document Home Meds Request 09/12/2023 04:02:15 Triage Complete 09/12/2023 04:02:15 09/12/2023 04:19:18 09/12/2023 04:19:18 No Visitors Request 09/12/2023 04:04:57 Dr Exam Complete 09/12/2023 04:07:39 09/12/2023 04:07:39 09/12/2023 04:07:39 Registration Complete 09/12/2023 04:07:39 09/12/2023 04:08:35 09/12/2023 04:08:35 Reg Complete Request 09/12/2023 04:08:35 Reg Bed Request Complete 09/12/2023 04:08:35 09/12/2023 04:08:35 09/12/2023 04:08:35 Bed Assign Complete 09/12/2023 04:13:05 09/12/2023 04:13:05 09/12/2023 04:13:05 RN Exam Complete 09/12/2023 04:13:05 09/12/2023 05:01:29 09/12/2023 05:01:29 Isolation Screening Request 09/12/2023 04:19:19 EKG Complete 09/12/2023 04:25:03 09/12/2023 04:26:57 Pending Labs Complete 09/12/2023 04:25:03 09/12/2023 04:53:42 09/12/2023 05:34:05 Lab Complete 09/12/2023 04:25:03 09/12/2023 04:53:42 09/12/2023 05:34:05 Urine Collect Complete 09/12/2023 04:25:03 09/12/2023 05:34:05 Patient Care Complete 09/12/2023 04:25:03 09/12/2023 04:41:37 X-Ray Complete 09/12/2023 04:25:03 09/12/2023 05:04:27 09/12/2023 05:04:47 CT Complete 09/12/2023 04:25:03 09/12/2023 05:04:29 09/12/2023 05:04:42 Meds Admin Complete 09/12/2023 04:25:45 09/12/2023 04:30:23 Pending Labs Complete 09/12/2023 04:38:13 09/12/2023 04:38:13 09/12/2023 04:38:14 Pending Labs Complete 09/12/2023 04:43:13 09/12/2023 04:43:13 09/12/2023 05:06:24 Lab Complete 09/12/2023 04:43:13 09/12/2023 04:43:13 09/12/2023 05:06:24 Pending Labs Complete 09/12/2023 04:45:36 09/12/2023 04:45:36 09/12/2023 04:45:36 Pending Labs Complete 09/12/2023 04:45:48 09/12/2023 04:45:48 09/12/2023 04:45:48 Wet Read Request 09/12/2023 05:04:47 Discharge Complete 09/12/2023 06:33:16 09/12/2023 06:47:40 09/12/2023 06:47:40 Transfer Complete 09/12/2023 06:47:40 09/12/2023 06:47:40 09/12/2023 06:47:40 ADDRESS: [address] [place] [address] [address] [facility] [phone] PHYS DOC NOTES: MEDICAL INFORMATION: Prescriptions Given: Medications to Continue with No Changes Other Medications apixaban (Eliquis 5 mg oral tablet) 1 Tablets By Mouth 2 times a day. Refills: 0. aspirin (aspirin 81 mg Oral EC Tab) 1 Tablets By Mouth every day. Refills: 0. atorvastatin (Lipitor 40 mg Tab) 1 Tablets By Mouth at bedtime. Refills: 0. carvedilol (carvedilol 3.125 mg Tab) 1 Tablets By Mouth 2 times a day. Refills: 0. digoxin (digoxin 125 mcg (0.125 mg) Tab) 1 Tablets By Mouth every day. Refills: 0. furosemide (furosemide 40 mg Tab) 1 Tablets By Mouth every day. Refills: 0. lorazepam (LORazepam 1 mg Tab) losartan (losartan 25 mg Tab) 1 Tablets By Mouth every day. Refills: 0. ondansetron (Zofran ODT 4 mg Tab-Dis) 1 Tablets By Mouth every 8 hours. Refills: 0. polyethylene glycol 3350 (polyethylene glycol 3350 17 gram packet) 17 Gram By Mouth every day. Refills: 0. PATIENT EDUCATION INFORMATION: Instructions: Tremor; Gastroesophageal Reflux Disease, Adult Follow up: With: Address: When: Peggy Nazario [employer] [place] [phone] Business (1) In 3 days DIAGNOSIS: Acid reflux; Tremor Normal [facility] ED Note-Physicianon 09-12-19 ED Note-Physician Basic Information Time Seen: Armen Parveen 09/12/2023 04:07 Chief Complaint states had recent med change a couple days ago. states has been hearing things. shaky, lightheaded. head pains. anxious History of Present Illness HPI: Patient is a 73-year-old female with past medical history of GERD, anxiety, atrial fibrillation, hypertension, hyperlipidemia presents the ED for concerns for possible medication reaction. Patient states that recently 2 of her blood pressure medications were changed. For past 3 nights she has awoken in the middle of the night around this time feeling like she was coming out of a nightmare and when she awakes she feels extremely tremulous and feels like she is hearing abnormal noises like she is still in the dream but is awake. She states that she is also noticed that when she awakes she feels a burning in the back of her throat or esophagus and feels that she has an abnormal taste of the medication in her mouth. She states that she feels so shaky that it is hard to keep her balance. ROS: Pertinent review of systems conducted and is negative except as noted above. Physical exam: General: nontoxic appearing and in no distress HEENT: Mucous membranes moist Neuro: awake and alert. Cranial nerves II through XII are intact. Gross motor and sensation all 4 extremities are intact. Neck: supple, trachea midline Card: Heart regular rate and rhythm no murmur Resp: Lungs clear to auscultation no wheeze or rhonchi Abd: Soft and nondistended. No tenderness to palpation with no rebound or guarding. Ext: No gross deformity or edema Physical Exam Vitals & Measurements T: 36.1 ?C(Tympanic) HR: 83(Peripheral) RR: 16 BP: 126/63 SpO2: 99% HT: 165 cm WT: 53.8 kg BMI: 19.76 Medical Decision Making MEDICAL DECISION MAKING Number and Complexity of Problems Differential Diagnosis: [] [facility] Data External documents reviewed: N/A My EKG interpretation: Noted in chart if applicable My CT interpretation: N/A My X-ray interpretation: Noted in chart if applicable My Ultrasound interpretation: N/A Decision rules/scores evaluated: N/A Discussed with: N/A Treatment and Disposition ED Course: Patient is nontoxic-appearing in no distress. No neurological deficits on exam. She is saying that she is having burning in her throat and a bad taste in her mouth so we will give her Maalox in the ED. Will also obtain workup as the patient is concerned that she is having worsening tremors and other symptoms. CT the brain is negative. Blood work is overall very reassuring. Patient was able to ambulate to the bathroom while in the ED with a steady gait. She reports that she is feeling somewhat improved on my reassessment. I discussed the results of her lab work and imaging. She if she feels that her symptoms have began since she has been put on her valsartan that she should call her primary care physician in the morning and discuss this medication and its potential side effects. Patient was discharged stable condition. Shared decision making: As above Code status: N/A Assessment/Plan Acid reflux (K21.9: Gastro-esophageal reflux disease without esophagitis) Tremor (R25.1: Tremor, unspecified) Orders: Al hydroxide/Mg hydroxide/simethicone , 30 mL, Susp-Oral, Oral, Once, Stop date [...] With Cult Reflex XR Chest Single View Medications Administered Given Al hydroxide/Mg hydroxide/simethicone 200 mg-200 mg-20 mg/5 mL oral suspension, 30 mL, Oral lidocaine Viscous Top 2% Lashonda, 200 mg, Oral Disposition Plan Discharge Prescription List Prescriptions No active prescription medications Follow-up With When Contact Information Peggy Aravind In 3 days [address] [employer] [place], [place] [address] (1) Additional Instructions: Patient Education Tremor Gastroesophageal Reflux Disease, Adult Problem List/Past Medical History Ongoing acid reflux Acute gastroenteritis anxiety Atrophic vaginitis Cystocele with prolapse Dysuria Feeling of incomplete bladder emptying Former smoker History of urethral stricture Injury of nose Nocturia Other urethral stricture, female Poor urinary stream Renal lesion Stranguria Superficial laceration of face Suprapubic pain Urethral stricture Urinary frequency Urinary hesitancy Urinary urgency Weak urine stream Historical No qualifying data Procedure/Surgical History Transesophageal echocardiogram (07/21/2023), Cardiac catheterization, combined right and left heart (07/05/2023), Cystourethroscopy with dilation of urethral stri (more content not included)... Normal [facility] Comment on above: Result Comment: Elec tronically Signed By: Parveen Ayers DO\.br\Date and Time Signed: 09/12/23 06:35 EST ED Patient Education Noteon 09-12-2023 ED Patient Education Note Gastroenterology Gastroesophageal Reflux Disease, Adult Gastroesophageal reflux (ZUNILDA) happens when acid from the stomach flows up into the tube that connects the mouth and the stomach (esophagus). Normally, food travels down the esophagus and stays in the stomach to be digested. However, when a person has ZUNILDA, food and stomach acid sometimes move back up into the esophagus. If this becomes a more serious problem, the person may be diagnosed with a disease called gastroesophageal reflux disease (GERD). GERD occurs when the reflux: ? Happens often. ? Causes frequent or severe symptoms. ? Causes problems such as damage to the [...] it does not close properly, and that allows food and stomach acid to go back up into the esophagus. The LES can be weakened by certain dietary substances, medicines, and medical conditions, including: ? Tobacco use. ? . ? Having a hiatal hernia. ? Alcohol use. ? Certain foods and beverages, such as coffee, chocolate, onions, and peppermint. What increases the risk? You are more likely to develop this condition if you: ? Have an increased body weight. ? Have a connective tissue disorder. ? Take NSAIDs, such as ibuprofen. What are the signs or symptoms? Symptoms of this condition include: ? Heartburn. ? Difficult or painful swallowing and the feeling of having a lump in the throat. ? A bitter taste in the mouth. ? Bad breath and having a large amount of saliva. ? Having an upset or bloated stomach and belching. ? Chest pain. Different conditions can cause chest pain. Make sure you see your health care provider if you experience chest pain. ? Shortness of breath or wheezing. ? Ongoing (chronic) cough or a nighttime cough. ? Wearing away of tooth enamel. ? Weight loss. How is this diagnosed? This condition may be diagnosed based on a medical history and a physical exam. To determine if you have mild or severe GERD, your health care provider may also monitor how you respond to treatment. You may also have tests, including: ? A test to examine your stomach and esophagus with a small camera (endoscopy). ? A test that measures the acidity level in your esophagus. ? A test that measures how much pressure is on your esophagus. ? A barium swallow or modified barium swallow test to show the shape, size, and functioning of your esophagus. How is this treated? Treatment for this condition may vary depending on how severe your symptoms are. Your health care provider may recommend: ? Changes to your diet. ? Medicine. ? Surgery. The goal of treatment is to help relieve your symptoms and to prevent complications. Follow these instructions at home: Eating and drinking ? Follow a diet as recommended by your health care provider. This may involve avoiding foods and drinks such as: ? Coffee and tea, with or without caffeine. ? Drinks that contain alcohol. ? Energy drinks and sports drinks. ? Carbonated drinks or sodas. ? Chocolate and cocoa. ? Peppermint and mint flavorings. ? Garlic and onions. ? Horseradish. ? Spicy and acidic foods, including peppers, chili powder, mea powder, vinegar, hot sauces, and barbecue sauce. ? Gibson fruit juices and citrus fruits, such as oranges, ronald, and limes. ? Tomato-based foods, such as red sauce, chili, salsa, and pizza with red sauce. ? Fried and fatty foods, such as donuts, romanian fries, potato chips, and high-fat dressings. ? High-fat meats, such as hot dogs and fatty cuts of red and white meats, such as rib eye steak, sausage, ham, and ambriz. ? High-fat dairy items, such as whole milk, butter, and cream cheese. ? Eat small, frequent meals instead of large meals. ? Avoid drinking large amounts of liquid with your meals. ? Avoid eating meals during the 2?3 hours before bedtime. ? Avoid lying down right after you eat. ? Do not exercise right after you eat. Lifestyle ? Do not use any products that contain nicotine or tobacco. These products include cigarettes, chewing tobacco, and vaping devices, such as e-cigarettes. If you need help quitting, ask your health care provider. ? Try to reduce your stress by using methods such as yoga or meditation. If you need help reducing stress, ask your health care provider. ? If you are overweight, reduce your weight to an amount that is healthy for you. Ask your health care provider for guidance about a safe eugene (more content not included)... Normal [facility] ED Patient Summaryon 024 ED Patient Summary [address] [address] Patient Discharge Instructions Person Information Name: ASYA ASENCIO I Age: 73 Years Arrival Date: 09/12/2023 04:02:15 Discharge Diagnosis: Acid reflux; Tremor Primary Care Physician: Peggy Nazario MD Provider Information Primary Provider: Parveen Ayers DO Advanced Technical Internship:None The exam and treatment you received in the Emergency Department were for an urgent problem and are not intended as complete care. It is important that you follow up with a doctor, nurse practitioner, or physician?s assistant operations manager for ongoing care. If your symptoms become worse or you do not improve as expected and you are unable to reach your usual health care provider, you should return to the Emergency Department. We are available 24 hours a day. ASYA ASENCIO I has been given the following list of patient education materials, prescriptions and follow-up instructions: Follow-up Instructions: With: Address: When: Peggy Nazario [employer] [place] [id number] [facility] (1) In 3 days In the event that this physician does not participate in your insurance network, please consult with your insurance company to find a nearby participating provider. Patient Education Materials: Tremor; Gastroesophageal Reflux Disease, Adult A MESSAGE TO ALL PATIENTS REGARDING OPIOIDS PRESCRIPTION OPIOIDS: WHAT YOU NEED TO KNOW Prescription opioids can be used to help relieve ydcscycb-fd-sflarq pain and are often prescribed following a surgery or injury, or for certain health conditions. These medications can be an important part of the treatment but also come with serious risks. It is important to work with your healthcare provider to make sure you are getting the safest, most effective care. WHAT ARE THE RISKS AND SIDE EFFECTS OF OPIOID USE? Prescription opioids carry serious risks of addiction and overdose, especially with prolonged use. An opioid overdose, often marked by slowed breathing, can cause sudden . The use of prescription opioids can have a number of side effects as well, even when taken as directed: ? Tolerance?meaning you might need to take more of the medication for the same pain relief ? Physical dependence?meaning you have symptoms of withdrawal when a medication is stopped ? Increased sensitivity to pain ? Constipation ? Nausea, vomiting, and dry mouth ? Sleepiness and dizziness ? Confusion ? Depression ? Low levels of testosterone that can result in lower sex drive, energy, and strength ? Itching and sweating RISKS ARE GREATER WITH: ? History of drug misuse, substance use disorder, or overdose ? Mental health conditions (such as depression or anxiety) ? Sleep apnea ? Older age (65 years and older) ? Avoid alcohol while taking prescription opioids. Also, unless specifically advised by your health care provider, medications to avoid include: ? Benzodiazepines (such as Xanax or Valium) ? Muscle relaxants (such as Soma or Flexeril) ? Hypnotics (such as Ambien or Lunesta) ? Other prescription opioids KNOW YOUR OPTIONS Talk to your health care provider about ways to manage your pain that don?t involve prescription opioids. Some of these options may actually work better and have fewer risks and side effects. Options may include: ? Pain relievers such as acetaminophen, ibuprofen, and naproxen ? Some medication that are also used for depression or seizures ? Physical therapy and exercise ? Cognitive behavioral therapy, a psychological, goal-directed approach, in which patients learn how to modify physical, behavioral, and emotional triggers of pain and stress. IF YOU ARE PRESCRIBED OPIOIDS FOR PAIN: ? Never take opioids in greater amounts or more often than prescribed. ? Follow up with your primary health care provider. o Work together to create a plan on how to manage your pain. o Talk about ways to help manage your pain that don?t involve prescription opioids. o Talk about any and all concerns and side effects. ? Help prevent misuse and abuse o Never sell or share prescription opioids. o Never use another person?s prescription opioids. ? Store prescription opioids in a secure place and out of reach of others (this may include visitors, children, friends, and family). ? Safely dispose of unused prescription opioids: Find your community drug take-back program or your pharmacy mail-back program, or flush them down the toilet, following guidance from the Food and Drug Administration (www.fda.gov/Drugs/Re sourcesForYou). ? Visit www.cdc.gov/drugoverd ose to learn about the risks of opioids abuse and overdose. ? If you believe you may be struggling with addiction, tell your health animal care worker and ask for guidance or call SAMHSA?S National Helpline at 1-517-916-HELP. v Source: [place] Department of (more content not included)... Normal [facility] HEMATOLOGYOrdered By: SYSTEM SYSTEM on 09-12-2023 [...] Normal 80.0 - 100.0 fL Remisol Heme Treutlen Absolute 0.6 E9/L Normal 0.2 - 1.0 [...] Remisol Heme Monitor Recordon 09-12-2023 Monitor Record [id number] 1 [id number]# 1.00TIFF Normal [facility] Troponin 0 Hr.on 09-12-2023 Troponin 12.70 pg/mL Normal 10.10-27.10 [facility] Comment on above: Result Comment: The 95% CI (Confidence Interval) PPV (Positive Predictive Value) for myocardial infarction in females is 38 pg/mL, in males 51 pg/mL. The results should be used in conjunction with clinical conditions of myocardial infarction. (Access High Sensitivity Troponin I Instructions For Use, [employer], March 2018) Performed By: #### 2 849203, [id number], 4938233, 4266146, 1303972, 2807113 #### [facility] [address] [place] [address] U Drug Screenon 09-12-2023 U Amph Scr Negative Invalid Interpretation Code [facility] Comment on above: Performed By: #### 2 794200, 40111206, 9417876, 9484984, 0726604, 4527512 #### [facility] [address] [facility] [place] [address] U Hayley Scr Negative Invalid Interpretation Code [facility] Comment on above: Performed By: #### 2 582576, 56196253, 3809569, 9206991, 4958375, 6668067 #### [facility] [address] [facility] [address] U Benzodia Scr Negative Invalid Interpretation Code [facility] Comment on above: Performed By: #### 2 849877, 49018815, 2952152, 9009870, 9447720, 7658189 #### [facility] [address] [facility] [place] [address] U Cannab Scr Negative Invalid Interpretation Code [facility] Comment on above: Performed By: #### 2 227743, 65835048, 8586399, 2616701, 2853178, 3969536 #### [facility] [address] [facility] [address] U Cocaine Scr Negative Invalid Interpretation Code [facility] Comment on above: Performed By: #### 2 318047, 17864894, 4070377, 4856342, 3632816, 0739744 #### [facility] [address] [place] [address] U Opiate Scr Negative Invalid Interpretation Code [facility] Comment on above: Performed By: #### 2 851474, 32806193, 2418137, 1699434, 7957361, 9868372 #### [facility] [address] [place] [address] U PCP Scr Negative Invalid Interpretation Code [facility] Comment on above: Performed By: #### 2 221500, 96827045, 6615157, 0083988, 7615247, 3038470 #### [facility] [address] [place] [address] UA With Cult Reflexon 2023 Bilirubin Ql (U) Negative Normal Negative [facility] Comment on above: Performed By: #### 1 [id number] #### [facility] [address] [place] [address] Clarity (U) CLEAR Normal Clear [facility] Comment on above: Performed By: #### 1 8544011 #### [facility] [address] [place] [address] Color (U) STRAW Invalid Interpretation Code [facility] Comment on above: Performed By: #### 1 [id number] #### [facility] [address] [place] [address] Epithelial cells.squamous LM.HPF (Urine sed) [#/Area] 0-2 Normal 0-2 [facility] Comment on above: Performed By: #### 1 6747650 #### [facility] [address] [place] [address] Glucose Test strip (U) [Mass/Vol] Negative Normal Negative [facility] Comment on above: Performed By: #### 1 8997060 #### [facility] [address] [place] [address] Hemoglobin Ql (U) 1+ Abnormal Negative [facility] Comment on above: Performed By: #### 1 9299756 #### [facility] [address] [place] [address] Ketones (U) [Mass/Vol] Negative Normal Negative [facility] Comment on above: Performed By: #### 1 3075251 #### [facility] [address] [place] [address] [place].plasma/Lithiu m.RBC (Bld) [Mass ratio] 0-3 Normal 0-3 [facility] Comment on above: Performed By: #### 1 8925017 #### [facility] [address] [place] [address] Nitrite Ql (U) Negative Normal Negative [facility] Comment on above: Performed By: #### 1 3069417 #### [facility] [address] [place] [address] pH (U) 7.0 [pH] Invalid Interpretation Code 5.0-9.0 [facility] Comment on above: Performed By: #### 1 [id number] #### [facility] [address] [place] [address] Protein (U) [Mass/Vol] Negative Normal Negative [facility] Comment on above: Performed By: #### 1 2176940 #### [facility] [address] [place] [address] Specific gravity (U) [Rel density] <=1.005 Invalid Interpretation Code 1.005-1.030 [facility] Comment on above: Performed By: #### 1 6883480 #### [facility] [address] [place] [address] Type of Urine collection method Clean Catch Normal [facility] Comment on above: Performed By: #### 1 8453034 #### [facility] [address] [place] [address] Urobilinogen Qn (U) 0.2 {Judith'U}/dL Normal 0.0-1.0 [facility] Comment on above: Performed By: #### 1 4255059 #### [facility] [address] [place] [address] WBC Auto Ql (U) TRACE Abnormal Negative [facility] Comment on above: Performed By: #### 1 2404374 #### [facility] [address] [place] [address] WBC LM.HPF (Urine sed) [#/Area] 0-5 Normal 0-5 [facility] Comment on above: Performed By: #### 1 [id number] #### [facility] [address] [place] [address] URINALYSISOrdered By: Ethan Frost on 09-12-2023 Bilirubin [...] AM) Normal Negative [facility] UA Auto SS [place].plasma/Lithiu m.RBC (Bld) [Mass ratio] 0-3 /HPF Normal 0-3/HPF [...] Desc Clean Catch (09/12/23 4:53 AM) Normal [facility] UA Auto SS Urobilinogen Qn (U) 0.5871537 {Judith'U}/dL Normal 0.0 - 1.0 EU/dL [facility] UA Auto SS WBC Auto Ql (U) Trace *ABN* (09/12/23 4:53 AM) Invalid Interpretation Code Negative [facility] UA Auto SS WBC LM.HPF (Urine sed) [#/Area] 0-5 /HPF Normal 0-5/HPF [facility] UA Auto SS XR Chest Single Viewon 09-12 XR Chest Single View Exam Date/Time: 09/12/2023 05:04 EST Reason for Exam: Shortness of breath (SOB) Report IMPRESSION: No acute radiographic abnormality. EXAMINATION: XR Chest Single View Clinical History: Shortness of breath (SOB) Comparison: 07/07/2023. RESULT: Hyperinflated lungs. No focal consolidation. No current pleural effusion with interval resolution of the prior pleural effusions. No pneumothorax. Stable cardiomediastinal silhouette. No acute osseous findings. Ordering Provider: Parveen Ayers FINAL REPORT Dictated: 09/12/2023 9:45 am Johan Nava MD Signed (Electronic Signature): 09/12/2023 9:45 am Signed by: Johan Nava MD Transcribed by: ARAVIND Technologist: JON Technical Comments Radiation Dose: Ka,r in mGy = na DAP = na Normal [facility] eGFRon 09-12-2023 eGFR 66 mL/min/1.73 m2 Normal >=59 [facility] Comment on above: Order Comment: Order Added by Discern Expert. Performed By: #### 2 886056, [id number], 1372535, 6234297, 9451443, 0041691 #### [facility] [address] [place] [address] [facility] 09-07-2023 CNPN Normal [facility] CNPNon 09-01-2023 CNPN Normal [facility] CBC panel Auto (Bld)on 08-31 Erythrocyte distribution width (RBC) [Ratio] 12.9 % Normal 11.5-15.0 [facility] Comment on above: Order Comment: Speci men Type: BLOOD SPECIMENOrdering Facility: [facility] Address: [address] [place] [address] Performed By: #### 5 8410-2 ####[facility] [id number] [place] [address] [place] Hematocrit (Bld) [Volume fraction] 36.1 % Normal 36.0-46.0 [facility] Comment on above: Order Comment: Speci men Type: BLOOD SPECIMENOrdering Facility: [facility] Address: [address] [place] [address] Performed By: #### 5 8410-2 ####[facility] [id number] [place] [address] [place] Hemoglobin (Bld) [Mass/Vol] 11.9 g/dL Normal 11.5-15.5 [facility] Comment on above: Order Comment: Speci men Type: BLOOD SPECIMENOrdering Facility: [facility] Address: [address] [place] [address] Performed By: #### 5 8410-2 ####[facility] [id number] [place] [address] [place] MCH (RBC) [Entitic mass] 29.5 pg Normal 26.0-34.0 [facility] Comment on above: Order Comment: Speci men Type: BLOOD SPECIMENOrdering Facility: [facility] Address: [address] [place] [address] Performed By: #### 5 8410-2 ####[facility] [id number] [place] [address] [place] MCHC (RBC) [Mass/Vol] 33.0 g/dL Normal 30.5-36.0 [facility] Comment on above: Order Comment: Speci men Type: BLOOD SPECIMENOrdering Facility: [facility] Address: [address] [place] [address] Performed By: #### 5 8410-2 ####[facility] LABCLIA [id number] [place] [address] [place] MCV (RBC) [Entitic vol] 89.4 fL Normal 80.0-100.0 [facility] Comment on above: Order Comment: Speci men Type: BLOOD SPECIMENOrdering Facility: [facility] Address: [address] [place] [address] Performed By: #### 5 8410-2 ####[facility] LABIA [id number] [place] [address] [place] Nucleated RBC (Bld) [#/Vol] 10*3/uL Normal <0.01 [facility] Comment on above: Order Comment: Speci men Type: BLOOD SPECIMENOrdering Facility: [facility] Address: [address] [place] [address] Performed By: #### 5 8410-2 ####[facility] LABIA [id number] [place] [address] [place] Platelet mean volume (Bld) [Entitic vol] 10.2 fL Normal 9.0-12.7 [facility] Comment on above: Order Comment: Speci men Type: BLOOD SPECIMENOrdering Facility: [facility] Address: [address] [place] [address] Performed By: #### 5 8410-2 ####[facility] LABIA [id number] [place] [address] [place] Platelets (Bld) [#/Vol] 175 10*3/uL Normal 150-400 [facility] Comment on above: Order Comment: Speci men Type: BLOOD SPECIMENOrdering Facility: [facility] Address: [address] [place] [address] Performed By: #### 5 8410-2 ####[facility] LABIA [id number] [place] [address] [place] RBC (Bld) [#/Vol] 4.04 10*6/uL Normal 3.90-5.20 [facility] Comment on above: Order Comment: Speci men Type: BLOOD SPECIMENOrdering Facility: [facility] Address: [address] [place] [address] Performed By: #### 5 8410-2 ####[facility] LABCLIA [id number] [place] [address] [place] WBC (Bld) [#/Vol] 6.11 10*3/uL Normal 3.70-11.00 [facility] Comment on above: Order Comment: Speci men Type: BLOOD SPECIMENOrdering Facility: [facility] Address: [address] [place] [address] Performed By: #### 5 8410-2 ####[facility] LABCLIA [id number] [place] [address] [place] CNDSon 08-31-2023 CNDS Normal [facility] Comprehensive metabolic 2000 panelon 08-31-2023 Albumin [Mass/Vol] 3.5 g/dL Low 3.9-4.9 [facility] Comment on above: Order Comment: Speci men Type: BLOOD SPECIMENOrdering Facility: [facility] Address: [address] [place] [address] Performed By: #### 1 9123-9, 33251-1 ####[facility] LABCLIA [id number] [place] [address] [place] ALP [Catalytic activity/Vol] 52 U/L Normal 34-123 [facility] Comment on above: Order Comment: Speci men Type: BLOOD SPECIMENOrdering Facility: [facility] Address: [address] [place] [address] Performed By: #### 1 9123-9, 68230-7 ####[facility] LABCLIA [id number] [place] [id number] [place] ALT [Catalytic activity/Vol] 24 U/L Normal 7-38 [facility] Comment on above: Order Comment: Speci men Type: BLOOD SPECIMENOrdering Facility: [facility] Address: [address] [place] [address] Performed By: #### 1 9123-9, ####[facility] LABCLIA [id number] [address] [address] [place] Anion gap [Moles/Vol] 9 mmol/L Normal 9-18 [facility] Comment on above: Order Comment: Speci men Type: BLOOD SPECIMENOrdering Facility: [facility] Address: [address] [place] [address] Performed By: #### 1 9123-9, ####[facility] LABCLIA [id number] [place] [address] [place] AST [Catalytic activity/Vol] 20 U/L Normal 13-35 [facility] Comment on above: Order Comment: Speci men Type: BLOOD SPECIMENOrdering Facility: [facility] Address: [address] [place] [address] Performed By: #### 1 9123-9, 01012-0 ####[facility] LABCLIA [id number] [place] [address] [place] Bilirubin [Mass/Vol] 0.5 mg/dL Normal 0.2-1.3 [facility] Comment on above: Order Comment: Speci men Type: BLOOD SPECIMENOrdering Facility: [facility] Address: [address] [place] [address] Performed By: #### 1 9123-9, 63633-9 ####[facility] LABCLIA [id number] [place] [address] [place] Calcium [Mass/Vol] 9.2 mg/dL Normal 8.5-10.2 [facility] Comment on above: Order Comment: Speci men Type: BLOOD SPECIMENOrdering Facility: [facility] Address: [address] [place] [address] Performed By: #### 1 9123-9, 95310-3 ####[facility] LABCLIA [id number] [place] [address] [place] Chloride [Moles/Vol] 103 mmol/L Normal 97-105 [facility] Comment on above: Order Comment: Speci men Type: BLOOD SPECIMENOrdering Facility: [facility] Address: [address] [place] [address] Performed By: #### 1 9123-9, ####[facility] LABCLIA [id number] [place] [address] [place] CO2 [Moles/Vol] 25 mmol/L Normal 22-30 [facility] Comment on above: Order Comment: Speci men Type: BLOOD SPECIMENOrdering Facility: [facility] Address: [address] [place] [address] Performed By: #### 1 9123-9, ####[facility] LABCLIA [id number] [place] [address] [place] Creatinine [Mass/Vol] 0.90 mg/dL Normal 0.58-0.96 [facility] Comment on above: Order Comment: Speci men Type: BLOOD SPECIMENOrdering Facility: [facility] Address: [address] [place] [address] Performed By: #### 1 9123-9, ####[facility] LABCLIA [id number] [place] [address] [place] Creatinine and Glomerular filtration rate.predicted panel (S/P/Bld) 67 mL/min/1.73m??? Normal >=60 [facility] Comment on above: Order Comment: Speci men Type: BLOOD SPECIMENOrdering Facility: [facility] Address: [address] [place] [address] Result Comment: Shelley mated Glomerular Filtration Rate [...] reflect actual GFR. Performed By: #### 1 23-9, ####[facility] LABCLIA [id number] [address] [address] [place] Glucose [Mass/Vol] 85 mg/dL Normal 74-99 [facility] Comment on above: Order Comment: Speci men Type: BLOOD SPECIMENOrdering Facility: [facility] Address: [address] [place] [address] Result Comment: The [place] [employer] (ADA) provides guidance for cutoff values for fasting glucose and random glucose. The ADA defines fasting as no caloric intake for at least 8 hours. Fasting plasma glucose results between 100 to 125 mg/dL indicate increased risk for diabetes (prediabetes).Fasting plasma glucose results greater than or equal to 126 mg/dL meet the criteria for diagnosis of diabetes. In the absence of unequivocal hyperglycemia, results should be confirmed by repeat testing. In a patient with classic symptoms of hyperglycemia or hyperglycemic crisis, random plasma glucose results greater than or equal to 200 mg/dL meet the criteria for diagnosis of diabetes.Reference: Standards of Medical Care in Diabetes 2016, [place] [employer]. Diabetes Care. 2016.39(Suppl 1). Performed By: #### 1 9123-9, ####[facility] LABCLIA [id number] [address] [address] [place] Potassium [Moles/Vol] 4.3 mmol/L Normal 3.7-5.1 [facility] Comment on above: Order Comment: Speci men Type: BLOOD SPECIMENOrdering Facility: [facility] Address: [address] [place] [address] Performed By: #### 1 9123-9, ####[facility] LABCLIA [id number] [address] [address] [place] Protein [Mass/Vol] 5.9 g/dL Low 6.3-8.0 [facility] Comment on above: Order Comment: Speci men Type: BLOOD SPECIMENOrdering Facility: [facility] Address: [address] [id number] Performed By: #### 1 9123-9, ####[facility] LABCLIA [id number] [address] [address] [place] Sodium [Moles/Vol] 137 mmol/L Normal 136-144 [facility] Comment on above: Order Comment: Speci men Type: BLOOD SPECIMENOrdering Facility: [facility] Address: [address] [place] [address] Performed By: #### 1 9123-9, ####[facility] LABCLIA [id number] [place] [id number] [place] Urea nitrogen [Mass/Vol] 16 mg/dL Normal 7-21 [facility] Comment on above: Order Comment: Speci men Type: BLOOD SPECIMENOrdering Facility: [facility] Address: [address] [id number] Performed By: #### 1 9123-9, ####[facility] LABCLIA [id number] [place] [id number] [place] Magnesium SerPl-mCncon 08-31 Magnesium [Mass/Vol] 2.2 mg/dL Normal 1.7-2.3 [facility] Comment on above: Order Comment: Speci men Type: BLOOD SPECIMENOrdering Facility: [facility] Address: [address] [id number] Performed By: #### 1 9123-9, ####[facility] LABCLIA [id number] [place] [id number] [place] NUTRITIONon 08-31-2023 NUTRITION Normal [facility] PT EDon 08-31-2023 PT ED Normal [facility] PT ED Normal [facility] US FEMALE PELVIS TRANSABD LT Don 08-31-2023 FEMALE PELVIS TRANSABD LTD Normal [facility] FEMALE PELVIS TRANSVAGon 08-31-2023 FEMALE PELVIS TRANSVAG Normal [facility] CBC panel Auto (Bld)on 08-30 Erythrocyte distribution width (RBC) [Ratio] 13.1 % Normal 11.5-15.0 [facility] Comment on above: Order Comment: Speci men Type: BLOOD SPECIMENOrdering Facility: [facility] Address: [address] [place] [address] Performed By: #### 5 8410-2 ####[facility] LABCLIA [id number] [place] [address] [place] Hematocrit (Bld) [Volume fraction] 38.9 % Normal 36.0-46.0 [facility] Comment on above: Order Comment: Speci men Type: BLOOD SPECIMENOrdering Facility: [facility] Address: [address] [place] [address] Performed By: #### 5 8410-2 ####[facility] LABIA [id number] [place] [address] [place] Hemoglobin (Bld) [Mass/Vol] 12.6 g/dL Normal 11.5-15.5 [facility] Comment on above: Order Comment: Speci men Type: BLOOD SPECIMENOrdering Facility: [facility] Address: [address] [place] [address] Performed By: #### 5 8410-2 ####[facility] LABCLIA [id number] [place] [address] [place] MCH (RBC) [Entitic mass] 29.9 pg Normal 26.0-34.0 [facility] Comment on above: Order Comment: Speci men Type: BLOOD SPECIMENOrdering Facility: [facility] Address: [address] [place] [address] Performed By: #### 5 8410-2 ####[facility] LABCLIA [id number] [place] [address] [place] MCHC (RBC) [Mass/Vol] 32.4 g/dL Normal 30.5-36.0 [facility] Comment on above: Order Comment: Speci men Type: BLOOD SPECIMENOrdering Facility: [facility] Address: [address] [place] [address] Performed By: #### 5 8410-2 ####[facility] LABCLIA [id number] [place] [address] [place] MCV (RBC) [Entitic vol] 92.2 fL Normal 80.0-100.0 [facility] Comment on above: Order Comment: Speci men Type: BLOOD SPECIMENOrdering Facility: [facility] Address: [address] [place] [address] Performed By: #### 5 8410-2 ####[facility] LABCLIA [id number] [place] [address] [place] Nucleated RBC (Bld) [#/Vol] 10*3/uL Normal <0.01 [facility] Comment on above: Order Comment: Speci men Type: BLOOD SPECIMENOrdering Facility: [facility] Address: [address] [place] [address] Performed By: #### 5 8410-2 ####[facility] LABCLIA [id number] [place] [address] [place] Platelet mean volume (Bld) [Entitic vol] 10.4 fL Normal 9.0-12.7 [facility] Comment on above: Order Comment: Speci men Type: BLOOD SPECIMENOrdering Facility: [facility] Address: [address] [place] [address] Performed By: #### 5 8410-2 ####[facility] LABCLIA [id number] [place] [address] [place] Platelets (Bld) [#/Vol] 185 10*3/uL Normal 150-400 [facility] Comment on above: Order Comment: Speci men Type: BLOOD SPECIMENOrdering Facility: [facility] Address: [address] [place] [address] Performed By: #### 5 8410-2 ####[facility] LABCLIA [id number] [place] [address] [place] RBC (Bld) [#/Vol] 4.22 10*6/uL Normal 3.90-5.20 [facility] Comment on above: Order Comment: Speci men Type: BLOOD SPECIMENOrdering Facility: [facility] Address: [address] [place] [address] Performed By: #### 5 8410-2 ####[facility] LABIA [id number] [place] [address] [place] WBC (Bld) [#/Vol] 6.51 10*3/uL Normal 3.70-11.00 [facility] Comment on above: Order Comment: Speci men Type: BLOOD SPECIMENOrdering Facility: [facility] Address: [address] [place] [address] Performed By: #### 5 8410-2 ####[facility] LABIA [id number] [place] [address] [place] CNCOon 08-30-2023 CNCO Letter Text Normal [facility] CONSULT PROGon 08-30-2023 CONSULT PROG Normal [facility] Comprehensive metabolic 2000 panelon 08-30-2023 Albumin [Mass/Vol] 3.9 g/dL Normal 3.9-4.9 [facility] Comment on above: Order Comment: Speci men Type: BLOOD SPECIMENOrdering Facility: [facility] Address: [address] [place] [address] Performed By: #### 1 9123-9, 87701-5 ####[facility] LABCLIA [id number] [place] [address] [place] ALP [Catalytic activity/Vol] 65 U/L Normal 34-123 [facility] Comment on above: Order Comment: Speci men Type: BLOOD SPECIMENOrdering Facility: [facility] Address: [address] [place] [address] Performed By: #### 1 23-9, ####[facility] LABCLIA [id number] [place] [address] [place] ALT [Catalytic activity/Vol] 28 U/L Normal 7-38 [facility] Comment on above: Order Comment: Speci men Type: BLOOD SPECIMENOrdering Facility: [facility] Address: [address] [place] [address] Performed By: #### 1 23-9, ####[facility] LABCLIA [id number] [place] [address] [place] Anion gap [Moles/Vol] 9 mmol/L Normal 9-18 [facility] Comment on above: Order Comment: Speci men Type: BLOOD SPECIMENOrdering Facility: [facility] Address: [address] [place] [address] Performed By: #### 1 23-9, ####[facility] LABCLIA [id number] [place] [address] [place] AST [Catalytic activity/Vol] 24 U/L Normal 13-35 [facility] Comment on above: Order Comment: Speci men Type: BLOOD SPECIMENOrdering Facility: [facility] Address: [address] [place] [address] Performed By: #### 1 23-9, 90598-8 ####[facility] LABCLIA [id number] [place] [address] [place] Bilirubin [Mass/Vol] 0.5 mg/dL Normal 0.2-1.3 [facility] Comment on above: Order Comment: Speci men Type: BLOOD SPECIMENOrdering Facility: [facility] Address: [address] [place] [address] Performed By: #### 1 23-9, ####[facility] LABCLIA [id number] [place] [address] [place] Calcium [Mass/Vol] 9.3 mg/dL Normal 8.5-10.2 [facility] Comment on above: Order Comment: Speci men Type: BLOOD SPECIMENOrdering Facility: [facility] Address: [address] [place] [address] Performed By: #### 1 23-9, ####[facility] LABCLIA [id number] [place] [address] [place] Chloride [Moles/Vol] 103 mmol/L Normal 97-105 [facility] Comment on above: Order Comment: Speci men Type: BLOOD SPECIMENOrdering Facility: [facility] Address: [address] [place] [address] Performed By: #### 1 9123-04, ####[facility] LABCLIA [id number] [place] [address] [place] CO2 [Moles/Vol] 25 mmol/L Normal 22-30 [facility] Comment on above: Order Comment: Speci men Type: BLOOD SPECIMENOrdering Facility: [facility] Address: [address] [place] [address] Performed By: #### 1 239, 82611-7 ####[facility] LABCLIA [id number] [place] [address] [place] Creatinine [Mass/Vol] 1.11 mg/dL High 0.58-0.96 [facility] Comment on above: Order Comment: Speci men Type: BLOOD SPECIMENOrdering Facility: [facility] Address: [address] [place] [address] Performed By: #### 1 23-9, 18013-4 ####[facility] LABCLIA [id number] [place] [address] [place] Creatinine and Glomerular filtration rate.predicted panel (S/P/Bld) 52 mL/min/1.73m??? Low >=60 [facility] Comment on above: Order Comment: Nichole becerra Type: BLOOD SPECIMENOrdering Facility: [facility] Address: [address] [place] [address] Result Comment: Shelley mated Glomerular Filtration Rate [...] actual GFR. Performed By: #### 1 9123-9, 46870-6 ####[facility] LABIA [id number] [place] [address] [place] Glucose [Mass/Vol] 149 mg/dL High 74-99 [facility] Comment on above: Order Comment: Nichole becerra Type: BLOOD SPECIMENOrdering Facility: [facility] Address: [address] [place] [address] Result Comment: The [place] [employer] (ADA) provides guidance for cutoff values for fasting glucose and random glucose. The ADA defines fasting as no caloric intake for at least 8 hours. Fasting plasma glucose results between 100 to 125 mg/dL indicate increased risk for diabetes (prediabetes).Fasting plasma glucose results greater than or equal to 126 mg/dL meet the criteria for diagnosis of diabetes. In the absence of unequivocal hyperglycemia, results should be confirmed by repeat testing. In a patient with classic symptoms of hyperglycemia or hyperglycemic crisis, random plasma glucose results greater than or equal to 200 mg/dL meet the criteria for diagnosis of diabetes.Reference: Standards of Medical Care in Diabetes 2016, [place] [employer]. Diabetes Care. 2016.39(Suppl 1). Performed By: #### 1 9123-9, 66134-7 ####[facility] LABIA [id number] [place] [address] [place] Potassium [Moles/Vol] 5.0 mmol/L Normal 3.7-5.1 [facility] Comment on above: Order Comment: Speci men Type: BLOOD SPECIMENOrdering Facility: [facility] Address: [address] [place] [address] Performed By: #### 1 9123-9, ####[facility] LABCLIA [id number] [address] [address] [place] Protein [Mass/Vol] 6.3 g/dL Normal 6.3-8.0 [facility] Comment on above: Order Comment: Speci men Type: BLOOD SPECIMENOrdering Facility: [facility] Address: [address] [place] [address] Performed By: #### 1 9123-9, ####[facility] LABCLIA [id number] [place] [address] [place] Sodium [Moles/Vol] 137 mmol/L Normal 136-144 [facility] Comment on above: Order Comment: Speci men Type: BLOOD SPECIMENOrdering Facility: [facility] Address: [address] [place] [address] Performed By: #### 1 9123-9, ####[facility] LABIA [id number] [place] [address] [place] Urea nitrogen [Mass/Vol] 19 mg/dL Normal 7-21 [facility] Comment on above: Order Comment: Speci men Type: BLOOD SPECIMENOrdering Facility: [facility] Address: [address] [place] [address] Performed By: #### 1 9123-9, ####[facility] LABCLIA [id number] [place] [id number] [place] Magnesium SerPl-mCncon 08-30 Magnesium [Mass/Vol] 2.2 mg/dL Normal 1.7-2.3 [facility] Comment on above: Order Comment: Speci men Type: BLOOD SPECIMENOrdering Facility: [facility] Address: [address] [place] [address] Performed By: #### 1 9123-9, 59351-9 ####[facility] LABIA [id number] [place] [address] [place] NURSING PROGon 08-30-2023 NURSING PROG Normal [facility] NUTRITIONon 08-30-2023 NUTRITION Normal [facility] CBC panel Auto (Bld)on 08-29 Erythrocyte distribution width (RBC) [Ratio] 13.1 % Normal 11.5-15.0 [facility] Comment on above: Order Comment: Speci men Type: BLOOD SPECIMENOrdering Facility: [facility] Address: [address] [place] [address] Performed By: #### 5 8410-2 ####[facility] LABIA [id number] [place] [address] [place] Hematocrit (Bld) [Volume fraction] 39.4 % Normal 36.0-46.0 [facility] Comment on above: Order Comment: Speci men Type: BLOOD SPECIMENOrdering Facility: [facility] Address: [address] [place] [address] Performed By: #### 5 8410-2 ####[facility] LABIA [id number] [place] [address] [place] Hemoglobin (Bld) [Mass/Vol] 13.1 g/dL Normal 11.5-15.5 [facility] Comment on above: Order Comment: Speci men Type: BLOOD SPECIMENOrdering Facility: [facility] Address: [address] [place] [address] Performed By: #### 5 8410-2 ####[facility] LABIA [id number] [place] [address] [place] MCH (RBC) [Entitic mass] 30.0 pg Normal 26.0-34.0 [facility] Comment on above: Order Comment: Speci men Type: BLOOD SPECIMENOrdering Facility: [facility] Address: [address] [place] [address] Performed By: #### 5 8410-2 ####[facility] LABCLIA [id number] [place] [address] [place] MCHC (RBC) [Mass/Vol] 33.2 g/dL Normal 30.5-36.0 [facility] Comment on above: Order Comment: Speci men Type: BLOOD SPECIMENOrdering Facility: [facility] Address: [address] [place] [address] Performed By: #### 5 8410-2 ####[facility] LABCLIA [id number] [place] [address] [place] MCV (RBC) [Entitic vol] 90.4 fL Normal 80.0-100.0 [facility] Comment on above: Order Comment: Speci men Type: BLOOD SPECIMENOrdering Facility: [facility] Address: [address] [place] [address] Performed By: #### 5 8410-2 ####[facility] LABCLIA [id number] [place] [address] [place] Nucleated RBC (Bld) [#/Vol] 10*3/uL Normal <0.01 [facility] Comment on above: Order Comment: Speci men Type: BLOOD SPECIMENOrdering Facility: [facility] Address: [address] [place] [address] Performed By: #### 5 8410-2 ####[facility] LABCLIA [id number] [place] [address] [place] Platelet mean volume (Bld) [Entitic vol] 10.5 fL Normal 9.0-12.7 [facility] Comment on above: Order Comment: Speci men Type: BLOOD SPECIMENOrdering Facility: [facility] Address: [address] [place] [address] Performed By: #### 5 8410-2 ####[facility] LABCLIA [id number] [place] [address] [place] Platelets (Bld) [#/Vol] 192 10*3/uL Normal 150-400 [facility] Comment on above: Order Comment: Speci men Type: BLOOD SPECIMENOrdering Facility: [facility] Address: [address] [place] [address] Performed By: #### 5 8410-2 ####[facility] LABCLIA [id number] [place] [address] [place] RBC (Bld) [#/Vol] 4.36 10*6/uL Normal 3.90-5.20 [facility] Comment on above: Order Comment: Speci men Type: BLOOD SPECIMENOrdering Facility: [facility] Address: [address] [place] [address] Performed By: #### 5 8410-2 ####[facility] LABCLIA [id number] [place] [address] [place] WBC (Bld) [#/Vol] 8.00 10*3/uL Normal 3.70-11.00 [facility] Comment on above: Order Comment: Speci men Type: BLOOD SPECIMENOrdering Facility: [facility] Address: [address] [place] [address] Performed By: #### 5 8410-2 ####[facility] LABCLIA [id number] [place] [address] [place] FLANK WO IVCONon 08-29-19 CT FLANK WO IVCON Invalid Interpretation Code [facility] Comprehensive metabolic 2000 panelon 08-29-2023 Albumin [Mass/Vol] 3.9 g/dL Normal 3.9-4.9 [facility] Comment on above: Order Comment: Speci men Type: BLOOD SPECIMENOrdering Facility: [facility] Address: [address] [place] [address] Performed By: #### 2 4323-8, 28027-3 ####[facility] LABCLIA [id number] [place] [address] [place] ALP [Catalytic activity/Vol] 58 U/L Normal 34-123 [facility] Comment on above: Order Comment: Speci men Type: BLOOD SPECIMENOrdering Facility: [facility] Address: [address] [place] [address] Performed By: #### 2 4323-8, ####[facility] LABCLIA [id number] [place] [address] [place] ALT [Catalytic activity/Vol] 33 U/L Normal 7-38 [facility] Comment on above: Order Comment: Speci men Type: BLOOD SPECIMENOrdering Facility: [facility] Address: [address] [place] [address] Performed By: #### 2 4323-8, ####[facility] LABCLIA [id number] [place] [address] [place] Anion gap [Moles/Vol] 10 mmol/L Normal 9-18 [facility] Comment on above: Order Comment: Speci men Type: BLOOD SPECIMENOrdering Facility: [facility] Address: [address] [place] [address] Performed By: #### 2 4323-8, ####[facility] LABCLIA [id number] [place] [address] [place] AST [Catalytic activity/Vol] 25 U/L Normal 13-35 [facility] Comment on above: Order Comment: Speci men Type: BLOOD SPECIMENOrdering Facility: [facility] Address: [address] [place] [address] Performed By: #### 2 4323-8, ####[facility] LABCLIA [id number] [place] [id number] [place] Bilirubin [Mass/Vol] 0.7 mg/dL Normal 0.2-1.3 [facility] Comment on above: Order Comment: Speci men Type: BLOOD SPECIMENOrdering Facility: [facility] Address: [address] [place] [id number] Performed By: #### 2 432-8, ####[facility] LABCLIA [id number] [address] [address] [place] Calcium [Mass/Vol] 9.0 mg/dL Normal 8.5-10.2 [facility] Comment on above: Order Comment: Speci men Type: BLOOD SPECIMENOrdering Facility: [facility] Address: [address] [place] [address] Performed By: #### 2 8, ####[facility] LABCLIA [id number] [place] [address] [place] Chloride [Moles/Vol] 101 mmol/L Normal 97-105 [facility] Comment on above: Order Comment: Speci men Type: BLOOD SPECIMENOrdering Facility: [facility] Address: [address] [id number] Performed By: #### 2 4323-03, ####[facility] LABCLIA [id number] [place] [address] [place] CO2 [Moles/Vol] 25 mmol/L Normal 22-30 [facility] Comment on above: Order Comment: Speci men Type: BLOOD SPECIMENOrdering Facility: [facility] Address: [address] [phone] Performed By: #### 2 4322-8, ####[facility] LABCLIA [id number] [place] [id number] [place] Creatinine [Mass/Vol] 0.87 mg/dL Normal 0.58-0.96 [facility] Comment on above: Order Comment: Speci men Type: BLOOD SPECIMENOrdering Facility: [facility] Address: [address] [phone] Performed By: #### 2 4322-8, ####[facility] LABCLIA [id number] [place] [address] [place] Creatinine and Glomerular filtration rate.predicted panel (S/P/Bld) 70 mL/min/1.73m??? Normal >=60 [facility] Comment on above: Order Comment: Nichole becerra Type: BLOOD SPECIMENOrdering Facility: [facility] Address: [address] [place] [address] Result Comment: Shelley mated Glomerular Filtration Rate [...] actual GFR. Performed By: #### 2 4323-8, ####[facility] LABIA [id number] [place] [address] [place] Glucose [Mass/Vol] 85 mg/dL Normal 74-99 [facility] Comment on above: Order Comment: Nichole becerra Type: BLOOD SPECIMENOrdering Facility: [facility] Address: [address] [place] [address] Result Comment: The [place] [employer] (ADA) provides guidance for cutoff values for fasting glucose and random glucose. The ADA defines fasting as no caloric intake for at least 8 hours. Fasting plasma glucose results between 100 to 125 mg/dL indicate increased risk for diabetes (prediabetes).Fasting plasma glucose results greater than or equal to 126 mg/dL meet the criteria for diagnosis of diabetes. In the absence of unequivocal hyperglycemia, results should be confirmed by repeat testing. In a patient with classic symptoms of hyperglycemia or hyperglycemic crisis, random plasma glucose results greater than or equal to 200 mg/dL meet the criteria for diagnosis of diabetes.Reference: Standards of Medical Care in Diabetes 2016, [place] [employer]. Diabetes Care. 2016.39(Suppl 1). Performed By: #### 2 4323-8, ####[facility] LABCLIA [id number] [place] [address] [place] Potassium [Moles/Vol] 4.7 mmol/L Normal 3.7-5.1 [facility] Comment on above: Order Comment: Speci men Type: BLOOD SPECIMENOrdering Facility: [facility] Address: [address] [place] [address] Performed By: #### 2 4323-8, ####[facility] LABCLIA [id number] [place] [address] [place] Protein [Mass/Vol] 6.3 g/dL Normal 6.3-8.0 [facility] Comment on above: Order Comment: Speci men Type: BLOOD SPECIMENOrdering Facility: [facility] Address: [address] [place] [address] Performed By: #### 2 4323-8, ####[facility] LABCLIA [id number] [place] [address] [place] Sodium [Moles/Vol] 136 mmol/L Normal 136-144 [facility] Comment on above: Order Comment: Speci men Type: BLOOD SPECIMENOrdering Facility: [facility] Address: [address] [place] [address] Performed By: #### 2 432-8, ####[facility] LABCLIA [id number] [place] [address] [place] Urea nitrogen [Mass/Vol] 15 mg/dL Normal 7-21 [facility] Comment on above: Order Comment: Speci men Type: BLOOD SPECIMENOrdering Facility: [facility] Address: [address] [place] [address] Performed By: #### 2 4323-8, ####[facility] LABCLIA [id number] [place] [id number] [place] DIGOXIN/LANOXINon 08-29-2023 Digoxin [Mass/Vol] 1.0 ng/mL Normal 0.6-1.2 [facility] Comment on above: Order Comment: Nichole becerra Type: BLOOD SPECIMENOrdering Facility: [facility] Address: [place] [address] Result Comment: Prov ided therapeutic concentrations are based on the 2008 ESC Guidelines for the Diagnosis and Treatment of Acute and Chronic Heart Failure.Reference ranges and high/low indicator flags are provided as general guidelines only. The treating physician must determine appropriate target levels/dosing based on the specific clinical situation. Performed By: #### D IG ####[facility] LABCLIA [id number] [place] [address] [place] Magnesium SerPl-mCncon 08-29 Magnesium [Mass/Vol] 2.2 mg/dL Normal 1.7-2.3 [facility] Comment on above: Order Comment: Nichole becerra Type: BLOOD SPECIMENOrdering Facility: [facility] Address: [address] [place] [address] Performed By: #### 2 4323-8, 48864-2 ####[facility] [id number] [place] [id number] [place] NUTRITIONon 08-29-2023 NUTRITION Normal [facility] THYROID PEROXIDASE ANTIBODY BLOODon 08-29-2023 TPO Ab Qn [IU]/mL Normal <5.6 [facility] Comment on above: Order Comment: Nichole becerra Type: BLOOD SPECIMENOrdering Facility: [facility] Address: [address] [place] [address] Result Comment: Thyr oid Peroxidase Antibody test is used as an aid in diagnosis of autoimmune thyroid disease. Clinical correlation is required. Performed By: #### M ICRO ####[facility] LABIA [id number] [place] [id number] [place] ANES POSTPROC EVALon 024 ANES POSTPROC EVAL Normal [facility] ANES PRE-OPon 08-28-2023 ANES PRE-OP Normal [facility] CASE MANAGEMon 08-28-2023 CASE MANAGEM Normal [facility] CBC panel Auto (Bld)on 08-28 Erythrocyte distribution width (RBC) [Ratio] 13.1 % Normal 11.5-15.0 [facility] Comment on above: Order Comment: Speci men Type: BLOOD SPECIMENOrdering Facility: [facility] Address: [address] [place] [address] Performed By: #### 5 8410-2 ####[facility] LABCLIA [id number] [place] [address] [place] Hematocrit (Bld) [Volume fraction] 37.8 % Normal 36.0-46.0 [facility] Comment on above: Order Comment: Speci men Type: BLOOD SPECIMENOrdering Facility: [facility] Address: [address] [place] [address] Performed By: #### 5 8410-2 ####[facility] LABCLIA [id number] [place] [address] [place] Hemoglobin (Bld) [Mass/Vol] 12.3 g/dL Normal 11.5-15.5 [facility] Comment on above: Order Comment: Speci men Type: BLOOD SPECIMENOrdering Facility: [facility] Address: [address] [place] [address] Performed By: #### 5 8410-2 ####[facility] LABCLIA [id number] [place] [address] [place] MCH (RBC) [Entitic mass] 29.5 pg Normal 26.0-34.0 [facility] Comment on above: Order Comment: Speci men Type: BLOOD SPECIMENOrdering Facility: [facility] Address: [address] [place] [address] Performed By: #### 5 8410-2 ####[facility] LABCLIA [id number] [place] [address] [place] MCHC (RBC) [Mass/Vol] 32.5 g/dL Normal 30.5-36.0 [facility] Comment on above: Order Comment: Speci men Type: BLOOD SPECIMENOrdering Facility: [facility] Address: [address] [place] [address] Performed By: #### 5 8410-2 ####[facility] LABIA [id number] [place] [address] [place] MCV (RBC) [Entitic vol] 90.6 fL Normal 80.0-100.0 [facility] Comment on above: Order Comment: Speci men Type: BLOOD SPECIMENOrdering Facility: [facility] Address: [address] [place] [address] Performed By: #### 5 8410-2 ####[facility] LABIA [id number] [place] [address] [place] Nucleated RBC (Bld) [#/Vol] 10*3/uL Normal <0.01 [facility] Comment on above: Order Comment: Speci men Type: BLOOD SPECIMENOrdering Facility: [facility] Address: [address] [place] [address] Performed By: #### 5 8410-2 ####[facility] LABIA [id number] [place] [address] [place] Platelet mean volume (Bld) [Entitic vol] 10.4 fL Normal 9.0-12.7 [facility] Comment on above: Order Comment: Speci men Type: BLOOD SPECIMENOrdering Facility: [facility] Address: [address] [place] [address] Performed By: #### 5 8410-2 ####[facility] LABIA [id number] [place] [address] [place] Platelets (Bld) [#/Vol] 180 10*3/uL Normal 150-400 [facility] Comment on above: Order Comment: Speci men Type: BLOOD SPECIMENOrdering Facility: [facility] Address: [address] [place] [address] Performed By: #### 5 8410-2 ####[facility] LABCLIA [id number] [address] [address] [place] RBC (Bld) [#/Vol] 4.17 10*6/uL Normal 3.90-5.20 [facility] Comment on above: Order Comment: Speci men Type: BLOOD SPECIMENOrdering Facility: [facility] Address: [address] [place] [address] Performed By: #### 5 8410-2 ####[facility] LABCLIA [id number] [place] [address] [place] WBC (Bld) [#/Vol] 6.22 10*3/uL Normal 3.70-11.00 [facility] Comment on above: Order Comment: Speci men Type: BLOOD SPECIMENOrdering Facility: [facility] Address: [address] [place] [address] Performed By: #### 5 8410-2 ####[facility] LABCLIA [id number] [place] [id number] [place] CNOVon 08-28-2023 CNOV Normal [facility] CONSULTon 08-28-2023 CONSULT Normal [facility] Comprehensive metabolic 2000 panelon 08-28-2023 Albumin [Mass/Vol] 3.5 g/dL Low 3.9-4.9 [facility] Comment on above: Order Comment: Speci men Type: BLOOD SPECIMENOrdering Facility: [facility] Address: [address] [place] [address] Performed By: #### 2 4323-8, 3024-7 ####[facility] LABIA [id number] [place] [address] [place] ALP [Catalytic activity/Vol] 52 U/L Normal 34-123 [facility] Comment on above: Order Comment: Speci men Type: BLOOD SPECIMENOrdering Facility: [facility] Address: [address] [place] [address] Performed By: #### 2 4323-8, 3023-7 ####[facility] LABCLIA [id number] [address] [address] [place] ALT [Catalytic activity/Vol] 31 U/L Normal 7-38 [facility] Comment on above: Order Comment: Speci men Type: BLOOD SPECIMENOrdering Facility: [facility] Address: [address] [place] [address] Performed By: #### 2 4323-8, 7 ####[facility] LABCLIA [id number] [place] [address] [place] Anion gap [Moles/Vol] 10 mmol/L Normal 9-18 [facility] Comment on above: Order Comment: Speci men Type: BLOOD SPECIMENOrdering Facility: [facility] Address: [address] [place] [address] Performed By: #### 2 4323-8, 7 ####[facility] LABCLIA [id number] [place] [address] [place] AST [Catalytic activity/Vol] 26 U/L Normal 13-35 [facility] Comment on above: Order Comment: Speci men Type: BLOOD SPECIMENOrdering Facility: [facility] Address: [address] [place] [address] Performed By: #### 2 4323-8, 7 ####[facility] LABCLIA [id number] [place] [id number] [place] Bilirubin [Mass/Vol] 0.5 mg/dL Normal 0.2-1.3 [facility] Comment on above: Order Comment: Speci men Type: BLOOD SPECIMENOrdering Facility: [facility] Address: [address] [place] [address] Performed By: #### 2 4323-8, 3023-7 ####[facility] LABCLIA [id number] [place] [id number] [place] Calcium [Mass/Vol] 9.5 mg/dL Normal 8.5-10.2 [facility] Comment on above: Order Comment: Speci men Type: BLOOD SPECIMENOrdering Facility: [facility] Address: [address] [place] [address] Performed By: #### 2 4323-8, 3024-02 ####[facility] LABCLIA [id number] [place] [address] [place] Chloride [Moles/Vol] 106 mmol/L High 97-105 [facility] Comment on above: Order Comment: Speci men Type: BLOOD SPECIMENOrdering Facility: [facility] Address: [address] [place] [address] Performed By: #### 2 432-8, 3024-02 ####[facility] LABCLIA [id number] [place] [address] [place] CO2 [Moles/Vol] 24 mmol/L Normal 22-30 [facility] Comment on above: Order Comment: Speci men Type: BLOOD SPECIMENOrdering Facility: [facility] Address: [address] [place] [address] Performed By: #### 2 432-8, 3024-02 ####[facility] LABCLIA [id number] [place] [address] [place] Creatinine [Mass/Vol] 0.75 mg/dL Normal 0.58-0.96 [facility] Comment on above: Order Comment: Speci men Type: BLOOD SPECIMENOrdering Facility: [facility] Address: [address] [place] [address] Performed By: #### 2 4323-8, 7 ####[facility] LABCLIA [id number] [place] [address] [place] Creatinine and Glomerular filtration rate.predicted panel (S/P/Bld) 83 mL/min/1.73m??? Normal >=60 [facility] Comment on above: Order Comment: Nichole becerra Type: BLOOD SPECIMENOrdering Facility: [facility] Address: [address] [place] [address] Result Comment: Shelley mated Glomerular Filtration Rate [...] GFR. Performed By: #### 2 4323-8, 3027 ####[facility] LABIA [id number] [place] [address] [place] Glucose [Mass/Vol] 88 mg/dL Normal 74-99 [facility] Comment on above: Order Comment: Nichole becerra Type: BLOOD SPECIMENOrdering Facility: [facility] Address: [address] [place] [address] Result Comment: The [place] [employer] (ADA) provides guidance for cutoff values for fasting glucose and random glucose. The ADA defines fasting as no caloric intake for at least 8 hours. Fasting plasma glucose results between 100 to 125 mg/dL indicate increased risk for diabetes (prediabetes).Fasting plasma glucose results greater than or equal to 126 mg/dL meet the criteria for diagnosis of diabetes. In the absence of unequivocal hyperglycemia, results should be confirmed by repeat testing. In a patient with classic symptoms of hyperglycemia or hyperglycemic crisis, random plasma glucose results greater than or equal to 200 mg/dL meet the criteria for diagnosis of diabetes.Reference: Standards of Medical Care in Diabetes 2016, [place] [employer]. Diabetes Care. 2016.39(Suppl 1). Performed By: #### 2 4323-8, 3023-7 ####[facility] [id number] [place] [address] [place] Potassium [Moles/Vol] 4.6 mmol/L Normal 3.7-5.1 [facility] Comment on above: Order Comment: Nichole becerra Type: BLOOD SPECIMENOrdering Facility: [facility] Address: [address] [id number] Performed By: #### 2 4323-8, 7 ####[facility] LABCLIA [id number] [address] [address] [place] Protein [Mass/Vol] 5.9 g/dL Low 6.3-8.0 [facility] Comment on above: Order Comment: Speci men Type: BLOOD SPECIMENOrdering Facility: [facility] Address: [address] [phone] Performed By: #### 2 4323-8, 7 ####[facility] LABIA [id number] [place] [address] [place] Sodium [Moles/Vol] 140 mmol/L Normal 136-144 [facility] Comment on above: Order Comment: Speci men Type: BLOOD SPECIMENOrdering Facility: [facility] Address: [address] [place] [address] Performed By: #### 2 4323-8, 7 ####[facility] LABIA [id number] [place] [address] [place] Urea nitrogen [Mass/Vol] 13 mg/dL Normal 7-21 [facility] Comment on above: Order Comment: Speci men Type: BLOOD SPECIMENOrdering Facility: [facility] Address: [address] [place] [address] Performed By: #### 2 4323-8, 7 ####[facility] LABIA [id number] [place] [id number] [place] [id number] 08-28-2023 ECG01 Normal [facility] ECHO TRANSESOPHAGEALon 08-28 ECHO TRANSESOPHAGEAL Normal [facility] NURSING PROGon 08-28-2023 NURSING PROG Normal [facility] PT EDon 08-28-2023 PT ED Normal [facility] PT ED Normal [facility] T4 Free SerPl-mCncon 024 Free T4 [Mass/Vol] 1.1 ng/dL Normal 0.9-1.7 [facility] Comment on above: Order Comment: Speci men Type: BLOOD SPECIMENOrdering Facility: [facility] Address: [address] [place] [address] Performed By: #### 2 4323-8, 3024-7 ####[facility] LABCLIA [id number] [place] [address] [place] CBC panel Auto (Bld)on 08-27 Erythrocyte distribution width (RBC) [Ratio] 12.8 % Normal 11.5-15.0 [facility] Comment on above: Order Comment: Speci men Type: BLOOD SPECIMENOrdering Facility: [facility] Address: [address] [place] [address] Performed By: #### 5 8410-2 ####[facility] LABCLIA [id number] [place] [address] [place] Hematocrit (Bld) [Volume fraction] 38.9 % Normal 36.0-46.0 [facility] Comment on above: Order Comment: Speci men Type: BLOOD SPECIMENOrdering Facility: [facility] Address: [address] [place] [address] Performed By: #### 5 8410-2 ####[facility] LABCLIA [id number] [place] [address] [place] Hemoglobin (Bld) [Mass/Vol] 12.7 g/dL Normal 11.5-15.5 [facility] Comment on above: Order Comment: Speci men Type: BLOOD SPECIMENOrdering Facility: [facility] Address: [address] [place] [address] Performed By: #### 5 8410-2 ####[facility] LABCLIA [id number] [place] [address] [place] MCH (RBC) [Entitic mass] 29.4 pg Normal 26.0-34.0 [facility] Comment on above: Order Comment: Speci men Type: BLOOD SPECIMENOrdering Facility: [facility] Address: [address] [place] [address] Performed By: #### 5 8410-2 ####[facility] [id number] [place] [address] [place] MCHC (RBC) [Mass/Vol] 32.6 g/dL Normal 30.5-36.0 [facility] Comment on above: Order Comment: Speci men Type: BLOOD SPECIMENOrdering Facility: [facility] Address: [address] [place] [address] Performed By: #### 5 8410-2 ####[facility] [id number] [place] [address] [place] MCV (RBC) [Entitic vol] 90.0 fL Normal 80.0-100.0 [facility] Comment on above: Order Comment: Speci men Type: BLOOD SPECIMENOrdering Facility: [facility] Address: [address] [place] [address] Performed By: #### 5 8410-2 ####[facility] [id number] [place] [address] [place] Nucleated RBC (Bld) [#/Vol] 10*3/uL Normal <0.01 [facility] Comment on above: Order Comment: Speci men Type: BLOOD SPECIMENOrdering Facility: [facility] Address: [address] [place] [address] Performed By: #### 5 8410-2 ####[facility] [id number] [place] [address] [place] Platelet mean volume (Bld) [Entitic vol] 10.4 fL Normal 9.0-12.7 [facility] Comment on above: Order Comment: Speci men Type: BLOOD SPECIMENOrdering Facility: [facility] Address: [address] [place] [address] Performed By: #### 5 8410-2 ####[facility] LABCLIA [id number] [place] [address] [place] Platelets (Bld) [#/Vol] 143 10*3/uL Low 150-400 [facility] Comment on above: Order Comment: Speci men Type: BLOOD SPECIMENOrdering Facility: [facility] Address: [address] [place] [address] Performed By: #### 5 8410-2 ####[facility] LABCLIA [id number] [place] [address] [place] RBC (Bld) [#/Vol] 4.32 10*6/uL Normal 3.90-5.20 [facility] Comment on above: Order Comment: Speci men Type: BLOOD SPECIMENOrdering Facility: [facility] Address: [address] [place] [address] Performed By: #### 5 8410-2 ####[facility] LABIA [id number] [place] [address] [place] WBC (Bld) [#/Vol] 5.61 10*3/uL Normal 3.70-11.00 [facility] Comment on above: Order Comment: Speci men Type: BLOOD SPECIMENOrdering Facility: [facility] Address: [address] [place] [address] Performed By: #### 5 8410-2 ####[facility] LABIA [id number] [place] [address] [place] Comprehensive metabolic 2000 panelon 08-27-2023 Albumin [Mass/Vol] 3.6 g/dL Low 3.9-4.9 [facility] Comment on above: Order Comment: Speci men Type: BLOOD SPECIMENOrdering Facility: [facility] Address: [address] [place] [address] Performed By: #### 2 4323-8, 3016-3 ####[facility] LABIA [id number] [place] [address] [place] ALP [Catalytic activity/Vol] 59 U/L Normal 34-123 [facility] Comment on above: Order Comment: Speci men Type: BLOOD SPECIMENOrdering Facility: [facility] Address: [address] [place] [address] Performed By: #### 2 4323-8, 3016-3 ####[facility] LABCLIA [id number] [place] [address] [place] ALT [Catalytic activity/Vol] 29 U/L Normal 7-38 [facility] Comment on above: Order Comment: Speci men Type: BLOOD SPECIMENOrdering Facility: [facility] Address: [address] [place] [address] Performed By: #### 2 4323-8, 6-3 ####[facility] LABCLIA [id number] [place] [address] [place] Anion gap [Moles/Vol] 8 mmol/L Low 9-18 [facility] Comment on above: Order Comment: Speci men Type: BLOOD SPECIMENOrdering Facility: [facility] Address: [address] [place] [address] Performed By: #### 2 4323-8, 6-3 ####[facility] LABCLIA [id number] [place] [address] [place] AST [Catalytic activity/Vol] 27 U/L Normal 13-35 [facility] Comment on above: Order Comment: Speci men Type: BLOOD SPECIMENOrdering Facility: [facility] Address: [address] [place] [address] Performed By: #### 2 4323-8, 3016-3 ####[facility] LABCLIA [id number] [place] [id number] [place] [place] Bilirubin [Mass/Vol] 0.5 mg/dL Normal 0.2-1.3 [facility] Comment on above: Order Comment: Speci men Type: BLOOD SPECIMENOrdering Facility: [facility] Address: [address] [place] [address] Performed By: #### 2 4323-8, 3015-3 ####[facility] LABCLIA [id number] [address] [address] [place] Calcium [Mass/Vol] 9.1 mg/dL Normal 8.5-10.2 [facility] Comment on above: Order Comment: Speci men Type: BLOOD SPECIMENOrdering Facility: [facility] Address: [address] [place] [address] Performed By: #### 2 4323-8, 3015-3 ####[facility] LABCLIA [id number] [place] [address] [place] Chloride [Moles/Vol] 105 mmol/L Normal 97-105 [facility] Comment on above: Order Comment: Speci men Type: BLOOD SPECIMENOrdering Facility: [facility] Address: [address] [place] [address] Performed By: #### 2 4323-8, 3 ####[facility] LABCLIA [id number] [place] [address] [place] CO2 [Moles/Vol] 27 mmol/L Normal 22-30 [facility] Comment on above: Order Comment: Speci men Type: BLOOD SPECIMENOrdering Facility: [facility] Address: [address] [place] [address] Performed By: #### 2 4323-8, 3 ####[facility] LABCLIA [id number] [address] [address] [place] Creatinine [Mass/Vol] 0.72 mg/dL Normal 0.58-0.96 [facility] Comment on above: Order Comment: Speci men Type: BLOOD SPECIMENOrdering Facility: [facility] Address: [address] [place] [address] Performed By: #### 2 4323-8, 3015-3 ####[facility] LABCLIA [id number] [place] [address] [place] Creatinine and Glomerular filtration rate.predicted panel (S/P/Bld) 87 mL/min/1.73m??? Normal >=60 [facility] Comment on above: Order Comment: Speci mariam Type: BLOOD SPECIMENOrdering Facility: [facility] Address: [address] [place] [address] Result Comment: Shelley mated Glomerular Filtration Rate [...] GFR. Performed By: #### 2 4323-8, 3016-3 ####[facility] [id number] [place] [address] [place] Glucose [Mass/Vol] 92 mg/dL Normal 74-99 [facility] Comment on above: Order Comment: Speceliseo becerra Type: BLOOD SPECIMENOrdering Facility: [facility] Address: [address] [place] [address] Result Comment: The [place] [employer] (ADA) provides guidance for cutoff values for fasting glucose and random glucose. The ADA defines fasting as no caloric intake for at least 8 hours. Fasting plasma glucose results between 100 to 125 mg/dL indicate increased risk for diabetes (prediabetes).Fasting plasma glucose results greater than or equal to 126 mg/dL meet the criteria for diagnosis of diabetes. In the absence of unequivocal hyperglycemia, results should be confirmed by repeat testing. In a patient with classic symptoms of hyperglycemia or hyperglycemic crisis, random plasma glucose results greater than or equal to 200 mg/dL meet the criteria for diagnosis of diabetes.Reference: Standards of Medical Care in Diabetes 2016, [place] [employer]. Diabetes Care. 2016.39(Suppl 1). Performed By: #### 2 4323-8, 3016-3 ####[facility] LABIA [id number] [place] [address] [place] Potassium [Moles/Vol] 4.7 mmol/L Normal 3.7-5.1 [facility] Comment on above: Order Comment: Speci men Type: BLOOD SPECIMENOrdering Facility: [facility] Address: [address] [place] [address] Performed By: #### 2 4323-8, 3016-3 ####[facility] LABCLIA [id number] [place] [address] [place] Protein [Mass/Vol] 5.8 g/dL Low 6.3-8.0 [facility] Comment on above: Order Comment: Speci men Type: BLOOD SPECIMENOrdering Facility: [facility] Address: [address] [place] [address] Performed By: #### 2 4323-8, 6-3 ####[facility] LABCLIA [id number] [place] [address] [place] Sodium [Moles/Vol] 140 mmol/L Normal 136-144 [facility] Comment on above: Order Comment: Speci men Type: BLOOD SPECIMENOrdering Facility: [facility] Address: [address] [place] [address] Performed By: #### 2 4323-8, 6-3 ####[facility] LABIA [id number] [place] [address] [place] Urea nitrogen [Mass/Vol] 15 mg/dL Normal 7-21 [facility] Comment on above: Order Comment: Speci men Type: BLOOD SPECIMENOrdering Facility: [facility] Address: [address] [place] [address] Performed By: #### 2 4323-8, 6-3 ####[facility] LABCLIA [id number] [place] [id number] [place] TSH SerPl-aCncon 08-27-2023 TSH Qn 9.850 m[IU]/L High 0.270-4.200 [facility] Comment on above: Order Comment: Speci men Type: BLOOD SPECIMENOrdering Facility: [facility] Address: [address] [place] [address] Performed By: #### 2 4323-8, 3016-3 ####[facility] LABCLIA [id number] [place] [address] [place] Bacteria Ur Culton Bacteria identified Cx Nom (U) Abnormal [facility] Comment on above: Performed By: #### 6 30-4 ####[facility] LABCLIA [id number] [place] [address] [place] CBC panel Auto (Bld)on 08-26 Erythrocyte distribution width (RBC) [Ratio] 13.1 % Normal 11.5-15.0 [facility] Comment on above: Order Comment: Speci men Type: BLOOD SPECIMENOrdering Facility: [facility] Address: [address] [place] [address] Performed By: #### 5 8410-2 ####[facility] LABCLIA [id number] [place] [address] [place] Hematocrit (Bld) [Volume fraction] 38.5 % Normal 36.0-46.0 [facility] Comment on above: Order Comment: Speci men Type: BLOOD SPECIMENOrdering Facility: [facility] Address: [address] [place] [address] Performed By: #### 5 8410-2 ####[facility] LABCLIA [id number] [place] [address] [place] Hemoglobin (Bld) [Mass/Vol] 12.8 g/dL Normal 11.5-15.5 [facility] Comment on above: Order Comment: Speci men Type: BLOOD SPECIMENOrdering Facility: [facility] Address: [address] [place] [address] Performed By: #### 5 8410-2 ####[facility] LABCLIA [id number] [place] [address] [place] MCH (RBC) [Entitic mass] 30.0 pg Normal 26.0-34.0 [facility] Comment on above: Order Comment: Speci men Type: BLOOD SPECIMENOrdering Facility: [facility] Address: [address] [place] [address] Performed By: #### 5 8410-2 ####[facility] LABCLIA [id number] [place] [address] [place] MCHC (RBC) [Mass/Vol] 33.2 g/dL Normal 30.5-36.0 [facility] Comment on above: Order Comment: Speci men Type: BLOOD SPECIMENOrdering Facility: [facility] Address: [address] [place] [address] Performed By: #### 5 8410-2 ####[facility] LABCLIA [id number] [place] [address] [place] MCV (RBC) [Entitic vol] 90.4 fL Normal 80.0-100.0 [facility] Comment on above: Order Comment: Speci men Type: BLOOD SPECIMENOrdering Facility: [facility] Address: [address] [place] [address] Performed By: #### 5 8410-2 ####[facility] LABIA [id number] [place] [address] [place] Nucleated RBC (Bld) [#/Vol] 10*3/uL Normal <0.01 [facility] Comment on above: Order Comment: Speci men Type: BLOOD SPECIMENOrdering Facility: [facility] Address: [address] [place] [address] Performed By: #### 5 8410-2 ####[facility] LABCLIA [id number] [place] [address] [place] Platelet mean volume (Bld) [Entitic vol] 10.6 fL Normal 9.0-12.7 [facility] Comment on above: Order Comment: Speci men Type: BLOOD SPECIMENOrdering Facility: [facility] Address: [address] [place] [address] Performed By: #### 5 8410-2 ####[facility] LABCLIA [id number] [place] [address] [place] Platelets (Bld) [#/Vol] 168 10*3/uL Normal 150-400 [facility] Comment on above: Order Comment: Speci men Type: BLOOD SPECIMENOrdering Facility: [facility] Address: [address] [place] [address] Performed By: #### 5 8410-2 ####[facility] LABIA [id number] [place] [address] [place] RBC (Bld) [#/Vol] 4.26 10*6/uL Normal 3.90-5.20 [facility] Comment on above: Order Comment: Speci men Type: BLOOD SPECIMENOrdering Facility: [facility] Address: [address] [place] [address] Performed By: #### 5 8410-2 ####[facility] LABIA [id number] [place] [address] [place] WBC (Bld) [#/Vol] 7.27 10*3/uL Normal 3.70-11.00 [facility] Comment on above: Order Comment: Speci men Type: BLOOD SPECIMENOrdering Facility: [facility] Address: [address] [place] [address] Performed By: #### 5 8410-2 ####[facility] LABIA [id number] [place] [address] [place] CONSULTon 08-26-2023 CONSULT Normal [facility] metabolic 2000 panelon 08-26-2023 Albumin [Mass/Vol] 3.5 g/dL Low 3.9-4.9 [facility] Comment on above: Order Comment: Speci men Type: BLOOD SPECIMENOrdering Facility: [facility] Address: [address] [place] [address] Performed By: #### 2 4323-8 ####[facility] LABCLIA [id number] [place] [address] [place] ALP [Catalytic activity/Vol] 60 U/L Normal 34-123 [facility] Comment on above: Order Comment: Speci men Type: BLOOD SPECIMENOrdering Facility: [facility] Address: [address] [place] [address] Performed By: #### 2 4323-8 ####[facility] LABCLIA [id number] [place] [address] [place] ALT [Catalytic activity/Vol] 25 U/L Normal 7-38 [facility] Comment on above: Order Comment: Speci men Type: BLOOD SPECIMENOrdering Facility: [facility] Address: [address] [place] [address] Performed By: #### 2 4323-8 ####[facility] LABCLIA [id number] [place] [address] [place] Anion gap [Moles/Vol] 10 mmol/L Normal 9-18 [facility] Comment on above: Order Comment: Speci men Type: BLOOD SPECIMENOrdering Facility: [facility] Address: [address] [place] [address] Performed By: #### 2 4323-8 ####[facility] LABCLIA [id number] [place] [id number] [place] AST [Catalytic activity/Vol] 22 U/L Normal 13-35 [facility] Comment on above: Order Comment: Speci men Type: BLOOD SPECIMENOrdering Facility: [facility] Address: [address] [place] [address] Performed By: #### 2 4323-8 ####[facility] LABCLIA [id number] [place] [address] [place] Bilirubin [Mass/Vol] 0.4 mg/dL Normal 0.2-1.3 [facility] Comment on above: Order Comment: Speci men Type: BLOOD SPECIMENOrdering Facility: [facility] Address: [address] [place] [address] Performed By: #### 2 4323-8 ####[facility] LABCLIA [id number] [place] [address] [place] Calcium [Mass/Vol] 8.9 mg/dL Normal 8.5-10.2 [facility] Comment on above: Order Comment: Speci men Type: BLOOD SPECIMENOrdering Facility: [facility] Address: [address] [place] [address] Performed By: #### 2 4323-8 ####[facility] LABCLIA [id number] [place] [address] [place] Chloride [Moles/Vol] 104 mmol/L Normal 97-105 [facility] Comment on above: Order Comment: Speci men Type: BLOOD SPECIMENOrdering Facility: [facility] Address: [address] [place] [address] Performed By: #### 2 4323-8 ####[facility] LABCLIA [id number] [place] [address] [place] CO2 [Moles/Vol] 26 mmol/L Normal 22-30 [facility] Comment on above: Order Comment: Speci men Type: BLOOD SPECIMENOrdering Facility: [facility] Address: [address] [place] [address] Performed By: #### 2 4323-8 ####[facility] LABCLIA [id number] [place] [address] [place] Creatinine [Mass/Vol] 0.84 mg/dL Normal 0.58-0.96 [facility] Comment on above: Order Comment: Speci men Type: BLOOD SPECIMENOrdering Facility: [facility] Address: [address] [place] [address] Performed By: #### 2 4323-8 ####[facility] LABCLIA [id number] [place] [address] [place] Creatinine and Glomerular filtration rate.predicted panel (S/P/Bld) 73 mL/min/1.73m??? Normal >=60 [facility] Comment on above: Order Comment: Nichole becerra Type: BLOOD SPECIMENOrdering Facility: [facility] Address: [address] [place] [address] Result Comment: Shelley mated Glomerular Filtration Rate [...] actual GFR. Performed By: #### 2 4323-8 ####[facility] LABIA [id number] [place] [address] [place] Glucose [Mass/Vol] 93 mg/dL Normal 74-99 [facility] Comment on above: Order Comment: Nichole becerra Type: BLOOD SPECIMENOrdering Facility: [facility] Address: [address] [place] [address] Result Comment: The [place] [employer] (ADA) provides guidance for cutoff values for fasting glucose and random glucose. The ADA defines fasting as no caloric intake for at least 8 hours. Fasting plasma glucose results between 100 to 125 mg/dL indicate increased risk for diabetes (prediabetes).Fasting plasma glucose results greater than or equal to 126 mg/dL meet the criteria for diagnosis of diabetes. In the absence of unequivocal hyperglycemia, results should be confirmed by repeat testing. In a patient with classic symptoms of hyperglycemia or hyperglycemic crisis, random plasma glucose results greater than or equal to 200 mg/dL meet the criteria for diagnosis of diabetes.Reference: Standards of Medical Care in Diabetes 2016, [place] [employer]. Diabetes Care. 2016.39(Suppl 1). Performed By: #### 2 4323-8 ####[facility] LABCLIA [id number] [place] [address] [place] Potassium [Moles/Vol] 4.4 mmol/L Normal 3.7-5.1 [facility] Comment on above: Order Comment: Speci men Type: BLOOD SPECIMENOrdering Facility: [facility] Address: [address] [place] [address] Performed By: #### 2 4323-8 ####[facility] LABCLIA [id number] [place] [address] [place] Protein [Mass/Vol] 5.7 g/dL Low 6.3-8.0 [facility] Comment on above: Order Comment: Speci men Type: BLOOD SPECIMENOrdering Facility: [facility] Address: [address] [place] [address] Performed By: #### 2 4323-8 ####[facility] LABCLIA [id number] [place] [address] [place] Sodium [Moles/Vol] 140 mmol/L Normal 136-144 [facility] Comment on above: Order Comment: Speci men Type: BLOOD SPECIMENOrdering Facility: [facility] Address: [address] [place] [address] Performed By: #### 2 4323-8 ####[facility] LABCLIA [id number] [place] [address] [place] Urea nitrogen [Mass/Vol] 19 mg/dL Normal 7-21 [facility] Comment on above: Order Comment: Speci men Type: BLOOD SPECIMENOrdering Facility: [facility] Address: [address] [place] [address] Performed By: #### 2 4323-8 ####[facility] LABCLIA [id number] [place] [address] [place] CASE MGT INIT ASSESon 2023 CASE MGT INIT ASSES Normal [facility] CBC panel Auto (Bld)on 08-25 Erythrocyte distribution width (RBC) [Ratio] 12.9 % Normal 11.5-15.0 [facility] Comment on above: Order Comment: Speci men Type: BLOOD SPECIMENOrdering Facility: [facility] Address: [address] [place] [address] Performed By: #### 5 8410-2 ####[facility] LABCLIA [id number] [place] [address] [place] Hematocrit (Bld) [Volume fraction] 37.8 % Normal 36.0-46.0 [facility] Comment on above: Order Comment: Speci men Type: BLOOD SPECIMENOrdering Facility: [facility] Address: [address] [place] [address] Performed By: #### 5 8410-2 ####[facility] LABCLIA [id number] [place] [address] [place] Hemoglobin (Bld) [Mass/Vol] 12.8 g/dL Normal 11.5-15.5 [facility] Comment on above: Order Comment: Speci men Type: BLOOD SPECIMENOrdering Facility: [facility] Address: [address] [place] [address] Performed By: #### 5 8410-2 ####[facility] LABCLIA [id number] [place] [address] [place] MCH (RBC) [Entitic mass] 29.9 pg Normal 26.0-34.0 [facility] Comment on above: Order Comment: Speci men Type: BLOOD SPECIMENOrdering Facility: [facility] Address: [address] [place] [address] Performed By: #### 5 8410-2 ####[facility] LABCLIA [id number] [place] [address] [place] MCHC (RBC) [Mass/Vol] 33.9 g/dL Normal 30.5-36.0 [facility] Comment on above: Order Comment: Speci men Type: BLOOD SPECIMENOrdering Facility: [facility] Address: [address] [place] [address] Performed By: #### 5 8410-2 ####[facility] LABCLIA [id number] [place] [address] [place] MCV (RBC) [Entitic vol] 88.3 fL Normal 80.0-100.0 [facility] Comment on above: Order Comment: Speci men Type: BLOOD SPECIMENOrdering Facility: [facility] Address: [address] [place] [address] Performed By: #### 5 8410-2 ####[facility] LABIA [id number] [place] [address] [place] Nucleated RBC (Bld) [#/Vol] 10*3/uL Normal <0.01 [facility] Comment on above: Order Comment: Speci men Type: BLOOD SPECIMENOrdering Facility: [facility] Address: [address] [place] [address] Performed By: #### 5 8410-2 ####[facility] LABIA [id number] [place] [address] [place] Platelet mean volume (Bld) [Entitic vol] 10.1 fL Normal 9.0-12.7 [facility] Comment on above: Order Comment: Speci men Type: BLOOD SPECIMENOrdering Facility: [facility] Address: [address] [place] [address] Performed By: #### 5 8410-2 ####[facility] LABCLIA [id number] [place] [address] [place] Platelets (Bld) [#/Vol] 173 10*3/uL Normal 150-400 [facility] Comment on above: Order Comment: Speci men Type: BLOOD SPECIMENOrdering Facility: [facility] Address: [address] [place] [address] Performed By: #### 5 8410-2 ####[facility] LABCLIA [id number] [place] [address] [place] RBC (Bld) [#/Vol] 4.28 10*6/uL Normal 3.90-5.20 [facility] Comment on above: Order Comment: Speci men Type: BLOOD SPECIMENOrdering Facility: [facility] Address: [address] [place] [address] Performed By: #### 5 8410-2 ####[facility] LABCLIA [id number] [place] [address] [place] WBC (Bld) [#/Vol] 6.38 10*3/uL Normal 3.70-11.00 [facility] Comment on above: Order Comment: Speci men Type: BLOOD SPECIMENOrdering Facility: [facility] Address: [address] [place] [address] Performed By: #### 5 8410-2 ####[facility] LABCLIA [id number] [place] [address] [place] Comprehensive metabolic 2000 panelon 08-25-2023 Albumin [Mass/Vol] 3.4 g/dL Low 3.9-4.9 [facility] Comment on above: Order Comment: Speci men Type: BLOOD SPECIMENOrdering Facility: [facility] Address: [address] [place] [address] Performed By: #### 1 9123-9, 84778-7 ####[facility] LABCLIA [id number] [place] [address] [place] ALP [Catalytic activity/Vol] 48 U/L Normal 34-123 [facility] Comment on above: Order Comment: Speci men Type: BLOOD SPECIMENOrdering Facility: [facility] Address: [address] [place] [address] Performed By: #### 1 9123-9, 50859-8 ####[facility] LABCLIA [id number] [place] [address] [place] ALT [Catalytic activity/Vol] 26 U/L Normal 7-38 [facility] Comment on above: Order Comment: Speci men Type: BLOOD SPECIMENOrdering Facility: [facility] Address: [address] [place] [address] Performed By: #### 1 9123-9, ####[facility] LABCLIA [id number] [address] [address] [place] Anion gap [Moles/Vol] 10 mmol/L Normal 9-18 [facility] Comment on above: Order Comment: Speci men Type: BLOOD SPECIMENOrdering Facility: [facility] Address: [address] [place] [address] Performed By: #### 1 9123-9, ####[facility] LABCLIA [id number] [place] [address] [place] AST [Catalytic activity/Vol] 23 U/L Normal 13-35 [facility] Comment on above: Order Comment: Speci men Type: BLOOD SPECIMENOrdering Facility: [facility] Address: [address] [place] [address] Performed By: #### 1 23-9, ####[facility] LABCLIA [id number] [place] [address] [place] Bilirubin [Mass/Vol] 0.9 mg/dL Normal 0.2-1.3 [facility] Comment on above: Order Comment: Speci men Type: BLOOD SPECIMENOrdering Facility: [facility] Address: [address] [place] [id number] Performed By: #### 1 9123-9, ####[facility] LABCLIA [id number] [place] [address] [place] Calcium [Mass/Vol] 9.0 mg/dL Normal 8.5-10.2 [facility] Comment on above: Order Comment: Speci men Type: BLOOD SPECIMENOrdering Facility: [facility] Address: [address] [place] [address] Performed By: #### 1 9123-9, 06670-8 ####[facility] LABCLIA [id number] [address] [address] [place] Chloride [Moles/Vol] 97 mmol/L Normal 97-105 [facility] Comment on above: Order Comment: Speci men Type: BLOOD SPECIMENOrdering Facility: [facility] Address: [address] [place] [address] Performed By: #### 1 9123-9, ####[facility] LABCLIA [id number] [place] [address] [place] CO2 [Moles/Vol] 29 mmol/L Normal 22-30 [facility] Comment on above: Order Comment: Speci men Type: BLOOD SPECIMENOrdering Facility: [facility] Address: [address] [place] [address] Performed By: #### 1 9123-9, ####[facility] LABCLIA [id number] [place] [address] [place] Creatinine [Mass/Vol] 1.02 mg/dL High 0.58-0.96 [facility] Comment on above: Order Comment: Speci men Type: BLOOD SPECIMENOrdering Facility: [facility] Address: [address] [place] [address] Performed By: #### 1 9123-9, ####[facility] LABCLIA [id number] [place] [id number] [place] Creatinine and Glomerular filtration rate.predicted panel (S/P/Bld) 57 mL/min/1.73m??? Low >=60 [facility] Comment on above: Order Comment: Speci men Type: BLOOD SPECIMENOrdering Facility: [facility] Address: [address] [place] [address] Result Comment: Shelley mated Glomerular Filtration Rate [...] actual GFR. Performed By: #### 1 9123-9, ####[facility] LABCLIA [id number] [place] [address] [place] Glucose [Mass/Vol] 84 mg/dL Normal 74-99 [facility] Comment on above: Order Comment: Nichole becerra Type: BLOOD SPECIMENOrdering Facility: [facility] Address: [address] [place] [address] Result Comment: The [place] Diabetes [employer] (ADA) provides guidance for cutoff values for fasting glucose and random glucose. The ADA defines fasting as no caloric intake for at least 8 hours. Fasting plasma glucose results between 100 to 125 mg/dL indicate increased risk for diabetes (prediabetes).Fasting plasma glucose results greater than or equal to 126 mg/dL meet the criteria for diagnosis of diabetes. In the absence of unequivocal hyperglycemia, results should be confirmed by repeat testing. In a patient with classic symptoms of hyperglycemia or hyperglycemic crisis, random plasma glucose results greater than or equal to 200 mg/dL meet the criteria for diagnosis of diabetes.Reference: Standards of Medical Care in Diabetes 2016, [place] [employer]. Diabetes Care. 2016.39(Suppl 1). Performed By: #### 1 9123-9, ####[facility] LABCLIA [id number] [place] [id number] [place] Potassium [Moles/Vol] 3.4 mmol/L Low 3.7-5.1 [facility] Comment on above: Order Comment: Nichole becerra Type: BLOOD SPECIMENOrdering Facility: [facility] Address: [address] [place] [address] Performed By: #### 1 9123-9, ####[facility] LABCLIA [id number] [place] [address] [place] Protein [Mass/Vol] 5.7 g/dL Low 6.3-8.0 [facility] Comment on above: Order Comment: Speci men Type: BLOOD SPECIMENOrdering Facility: [facility] Address: [place] [address] Performed By: #### 1 9123-9, ####[facility] LABCLIA [id number] [place] [address] [place] Sodium [Moles/Vol] 136 mmol/L Normal 136-144 [facility] Comment on above: Order Comment: Speci men Type: BLOOD SPECIMENOrdering Facility: [facility] Address: [address] [place] [address] Performed By: #### 1 9123-9, ####[facility] LABCLIA [id number] [place] [address] [place] Urea nitrogen [Mass/Vol] 22 mg/dL High 7-21 [facility] Comment on above: Order Comment: Speci men Type: BLOOD SPECIMENOrdering Facility: [facility] Address: [address] [place] [address] Performed By: #### 1 9123-9, ####[facility] LABCLIA [id number] [place] [address] [place] Magnesium SerPl-mCncon 08-25 Magnesium [Mass/Vol] 2.2 mg/dL Normal 1.7-2.3 [facility] Comment on above: Order Comment: Speci men Type: BLOOD SPECIMENOrdering Facility: [facility] Address: [address] [place] [address] Performed By: #### 1 9123-9, 58454-8 ####[facility] LABCLIA [id number] [place] [id number] [place] POTASSIUM BLDon 08-25-2023 Potassium [Moles/Vol] 4.3 mmol/L Normal 3.7-5.1 [facility] Comment on above: Order Comment: Speci men Type: BLOOD SPECIMENOrdering Facility: [facility] Address: [address] [place] [address] Performed By: #### K 1 ####[facility] LABCLIA [id number] [place] [address] [place] US KIDNEY/BLADDERon 08-25-19 US KIDNEY/BLADDER Normal [facility] CBC W Auto Differential pane l (Bld)on 08-24-2023 Basophils (Bld) [#/Vol] 0.03 10*3/uL Normal <0.11 [facility] Comment on above: Order Comment: Speci men Type: BLOOD SPECIMENOrdering Facility: [facility] Address: [address] [place] [address] Performed By: #### 5 7021-8 ####[facility] LABCLIA [id number] [place] [address] [place] Basophils/100 WBC (Bld) 0.4 % Normal [facility] Comment on above: Order Comment: Speci men Type: BLOOD SPECIMENOrdering Facility: [facility] Address: [address] [place] [address] Performed By: #### 5 7021-8 ####[facility] LABCLIA [id number] [place] [address] [place] Differential cell count method Nom (Bld) Auto Normal [facility] Comment on above: Order Comment: Speci men Type: BLOOD SPECIMENOrdering Facility: [facility] Address: [address] [place] [address] Performed By: #### 5 7021-8 ####[facility] LABCLIA [id number] [place] [address] [place] Eosinophils (Bld) [#/Vol] 0.03 10*3/uL Normal <0.46 [facility] Comment on above: Order Comment: Speci men Type: BLOOD SPECIMENOrdering Facility: [facility] Address: [address] [place] [address] Performed By: #### 5 7021-8 ####[facility] LABCLIA [id number] [place] [address] [place] Eosinophils/100 WBC (Bld) 0.4 % Normal [facility] Comment on above: Order Comment: Speci men Type: BLOOD SPECIMENOrdering Facility: [facility] Address: [address] [place] [address] Performed By: #### 5 7021-8 ####[facility] LABCLIA [id number] [place] [address] [place] Erythrocyte distribution width (RBC) [Ratio] 12.7 % Normal 11.5-15.0 [facility] Comment on above: Order Comment: Speci men Type: BLOOD SPECIMENOrdering Facility: [facility] Address: [address] [place] [address] Performed By: #### 5 7021-8 ####[facility] LABIA [id number] [place] [address] [place] Hematocrit (Bld) [Volume fraction] 40.4 % Normal 36.0-46.0 [facility] Comment on above: Order Comment: Speci men Type: BLOOD SPECIMENOrdering Facility: [facility] Address: [address] [place] [address] Performed By: #### 5 7021-8 ####[facility] LABCLIA [id number] [place] [address] [place] Hemoglobin (Bld) [Mass/Vol] 13.2 g/dL Normal 11.5-15.5 [facility] Comment on above: Order Comment: Speci men Type: BLOOD SPECIMENOrdering Facility: [facility] Address: [address] [place] [address] Performed By: #### 5 7021-8 ####[facility] LABCLIA [id number] [place] [address] [place] Immature granulocytes (Bld) [#/Vol] 10*3/uL Normal <0.10 [facility] Comment on above: Order Comment: Speci men Type: BLOOD SPECIMENOrdering Facility: [facility] Address: [address] [place] [address] Performed By: #### 5 7021-8 ####[facility] LABCLIA [id number] [place] [address] [place] Immature granulocytes/100 WBC (Bld) 0.3 % Normal [facility] Comment on above: Order Comment: Speci men Type: BLOOD SPECIMENOrdering Facility: [facility] Address: [address] [place] [address] Performed By: #### 5 7021-8 ####[facility] LABCLIA [id number] [place] [address] [place] Lymphocytes (Bld) [#/Vol] 1.73 10*3/uL Normal 1.00-4.00 [facility] Comment on above: Order Comment: Speci men Type: BLOOD SPECIMENOrdering Facility: [facility] Address: [address] [place] [address] Performed By: #### 5 7021-8 ####[facility] LABCLIA [id number] [place] [address] [place] Lymphocytes/100 WBC (Bld) 23.4 % Normal [facility] Comment on above: Order Comment: Speci men Type: BLOOD SPECIMENOrdering Facility: [facility] Address: [address] [place] [address] Performed By: #### 5 7021-8 ####[facility] LABCLIA [id number] [place] [address] [place] MCH (RBC) [Entitic mass] 29.3 pg Normal 26.0-34.0 [facility] Comment on above: Order Comment: Speci men Type: BLOOD SPECIMENOrdering Facility: [facility] Address: [address] [place] [address] Performed By: #### 5 7021-8 ####[facility] LABCLIA [id number] [place] [address] [place] MCHC (RBC) [Mass/Vol] 32.7 g/dL Normal 30.5-36.0 [facility] Comment on above: Order Comment: Speci men Type: BLOOD SPECIMENOrdering Facility: [facility] Address: [address] [place] [address] Performed By: #### 5 7021-8 ####[facility] LABCLIA [id number] [place] [address] [place] MCV (RBC) [Entitic vol] 89.8 fL Normal 80.0-100.0 [facility] Comment on above: Order Comment: Speci men Type: BLOOD SPECIMENOrdering Facility: [facility] Address: [address] [place] [address] Performed By: #### 5 7021-8 ####[facility] LABCLIA [id number] [place] [address] [place] Monocytes (Bld) [#/Vol] 0.77 10*3/uL Normal <0.87 [facility] Comment on above: Order Comment: Speci men Type: BLOOD SPECIMENOrdering Facility: [facility] Address: [address] [place] [address] Performed By: #### 5 7021-8 ####[facility] LABCLIA [id number] [place] [address] [place] Monocytes/100 WBC (Bld) 10.4 % Normal [facility] Comment on above: Order Comment: Speci men Type: BLOOD SPECIMENOrdering Facility: [facility] Address: [address] [place] [address] Performed By: #### 5 7021-8 ####[facility] LABCLIA [id number] [place] [address] [place] Neutrophils (Bld) [#/Vol] 4.82 10*3/uL Normal 1.45-7.50 [facility] Comment on above: Order Comment: Speci men Type: BLOOD SPECIMENOrdering Facility: [facility] Address: [address] [place] [address] Performed By: #### 5 7021-8 ####[facility] LABCLIA [id number] [place] [address] [place] Neutrophils/100 WBC (Bld) 65.1 % Normal [facility] Comment on above: Order Comment: Speci men Type: BLOOD SPECIMENOrdering Facility: [facility] Address: [address] [place] [address] Performed By: #### 5 7021-8 ####[facility] LABCLIA [id number] [place] [address] [place] Nucleated RBC (Bld) [#/Vol] 10*3/uL Normal <0.01 [facility] Comment on above: Order Comment: Speci men Type: BLOOD SPECIMENOrdering Facility: [facility] Address: [address] [place] [address] Performed By: #### 5 7021-8 ####[facility] LABCLIA [id number] [place] [address] [place] Nucleated RBC/100 WBC (Bld) [Ratio] 0.0 /100 WBC Normal [facility] Comment on above: Order Comment: Speci men Type: BLOOD SPECIMENOrdering Facility: [facility] Address: [address] [place] [address] Performed By: #### 5 7021-8 ####[facility] LABCLIA [id number] [place] [address] [place] Platelet mean volume (Bld) [Entitic vol] 10.4 fL Normal 9.0-12.7 [facility] Comment on above: Order Comment: Speci men Type: BLOOD SPECIMENOrdering Facility: [facility] Address: [address] [place] [address] Performed By: #### 5 7021-8 ####[facility] LABCLIA [id number] [place] [id number] [place] Platelets (Bld) [#/Vol] 201 10*3/uL Normal 150-400 [facility] Comment on above: Order Comment: Speci men Type: BLOOD SPECIMENOrdering Facility: [facility] Address: [address] [place] [address] Performed By: #### 5 7021-8 ####[facility] LABCLIA [id number] [place] [address] [place] RBC (Bld) [#/Vol] 4.50 10*6/uL Normal 3.90-5.20 [facility] Comment on above: Order Comment: Speci men Type: BLOOD SPECIMENOrdering Facility: [facility] Address: [address] [place] [address] Performed By: #### 5 7021-8 ####[facility] LABIA [id number] [place] [address] [place] WBC (Bld) [#/Vol] 7.40 10*3/uL Normal 3.70-11.00 [facility] Comment on above: Order Comment: Speci men Type: BLOOD SPECIMENOrdering Facility: [facility] Address: [address] [place] [address] Performed By: #### 5 7021-8 ####[facility] LABCLIA [id number] [place] [id number] [place] CNPNon 08-24-2023 CNPN Normal [facility] Comprehensive metabolic 2000 panelon 08-24-2023 Albumin [Mass/Vol] 3.8 g/dL Low 3.9-4.9 [facility] Comment on above: Order Comment: Speci men Type: BLOOD SPECIMENOrdering Facility: [facility] Address: [address] [place] [address] Performed By: #### 2 4323-8 ####[facility] LABCLIA [id number] [place] [address] [place] ALP [Catalytic activity/Vol] 61 U/L Normal 34-123 [facility] Comment on above: Order Comment: Speci men Type: BLOOD SPECIMENOrdering Facility: [facility] Address: [address] [place] [address] Performed By: #### 2 4323-8 ####[facility] LABCLIA [id number] [place] [address] [place] ALT [Catalytic activity/Vol] 34 U/L Normal 7-38 [facility] Comment on above: Order Comment: Speci men Type: BLOOD SPECIMENOrdering Facility: [facility] Address: [address] [place] [address] Performed By: #### 2 4323-8 ####[facility] LABCLIA [id number] [place] [address] [place] Anion gap [Moles/Vol] 8 mmol/L Low 9-18 [facility] Comment on above: Order Comment: Speci men Type: BLOOD SPECIMENOrdering Facility: [facility] Address: [address] [place] [address] Performed By: #### 2 4323-8 ####[facility] LABCLIA [id number] [place] [address] [place] AST [Catalytic activity/Vol] 27 U/L Normal 13-35 [facility] Comment on above: Order Comment: Speci men Type: BLOOD SPECIMENOrdering Facility: [facility] Address: [address] [place] [address] Performed By: #### 2 4323-8 ####[facility] LABCLIA [id number] [place] [id number] [place] Bilirubin [Mass/Vol] 0.7 mg/dL Normal 0.2-1.3 [facility] Comment on above: Order Comment: Speci men Type: BLOOD SPECIMENOrdering Facility: [facility] Address: [address] [place] [address] Performed By: #### 2 4323-8 ####[facility] LABCLIA [id number] [address] [address] [place] Calcium [Mass/Vol] 9.2 mg/dL Normal 8.5-10.2 [facility] Comment on above: Order Comment: Speci men Type: BLOOD SPECIMENOrdering Facility: [facility] Address: [address] [place] [address] Performed By: #### 2 4323-8 ####[facility] LABCLIA [id number] [place] [address] [place] Chloride [Moles/Vol] 97 mmol/L Normal 97-105 [facility] Comment on above: Order Comment: Speci men Type: BLOOD SPECIMENOrdering Facility: [facility] Address: [address] [place] [address] Performed By: #### 2 4323-8 ####[facility] LABCLIA [id number] [place] [address] [place] CO2 [Moles/Vol] 32 mmol/L High 22-30 [facility] Comment on above: Order Comment: Speci men Type: BLOOD SPECIMENOrdering Facility: [facility] Address: [address] [place] [address] Performed By: #### 2 4323-8 ####[facility] LABCLIA [id number] [place] [id number] [place] Creatinine [Mass/Vol] 1.11 mg/dL High 0.58-0.96 [facility] Comment on above: Order Comment: Speci men Type: BLOOD SPECIMENOrdering Facility: [facility] Address: [address] [place] [id number] Performed By: #### 2 4323-8 ####[facility] LABCLIA [id number] [place] [address] [place] Creatinine and Glomerular filtration rate.predicted panel (S/P/Bld) 52 mL/min/1.73m??? Low >=60 [facility] Comment on above: Order Comment: Nichole becerra Type: BLOOD SPECIMENOrdering Facility: [facility] Address: [address] [place] [address] Result Comment: Shelley mated Glomerular Filtration Rate [...] actual GFR. Performed By: #### 2 4323-8 ####[facility] [id number] [place] [address] [place] Glucose [Mass/Vol] 123 mg/dL High 74-99 [facility] Comment on above: Order Comment: Nichole becerra Type: BLOOD SPECIMENOrdering Facility: [facility] Address: [address] [place] [address] Result Comment: The [place] [employer] (ADA) provides guidance for cutoff values for fasting glucose and random glucose. The ADA defines fasting as no caloric intake for at least 8 hours. Fasting plasma glucose results between 100 to 125 mg/dL indicate increased risk for diabetes (prediabetes).Fasting plasma glucose results greater than or equal to 126 mg/dL meet the criteria for diagnosis of diabetes. In the absence of unequivocal hyperglycemia, results should be confirmed by repeat testing. In a patient with classic symptoms of hyperglycemia or hyperglycemic crisis, random plasma glucose results greater than or equal to 200 mg/dL meet the criteria for diagnosis of diabetes.Reference: Standards of Medical Care in Diabetes 2016, [place] [employer]. Diabetes Care. 2016.39(Suppl 1). Performed By: #### 2 4323-8 ####[facility] LABIA [id number] [place] [address] [place] Potassium [Moles/Vol] 3.7 mmol/L Normal 3.7-5.1 [facility] Comment on above: Order Comment: Speci men Type: BLOOD SPECIMENOrdering Facility: [facility] Address: [address] [place] [address] Performed By: #### 2 4323-8 ####[facility] LABCLIA [id number] [place] [address] [place] Protein [Mass/Vol] 6.1 g/dL Low 6.3-8.0 [facility] Comment on above: Order Comment: Speci men Type: BLOOD SPECIMENOrdering Facility: [facility] Address: [address] [place] [address] Performed By: #### 2 4323-8 ####[facility] LABCLIA [id number] [place] [address] [place] Sodium [Moles/Vol] 137 mmol/L Normal 136-144 [facility] Comment on above: Order Comment: Speci men Type: BLOOD SPECIMENOrdering Facility: [facility] Address: [address] [place] [address] Performed By: #### 2 4323-8 ####[facility] LABCLIA [id number] [place] [address] [place] Urea nitrogen [Mass/Vol] 21 mg/dL Normal 7-21 [facility] Comment on above: Order Comment: Speci men Type: BLOOD SPECIMENOrdering Facility: [facility] Address: [address] [place] [address] Performed By: #### 2 4323-8 ####[facility] LABCLIA [id number] [place] [address] [place] DIGOXIN/LANOXINon 08-24-2023 Digoxin [Mass/Vol] 1.1 ng/mL Normal 0.6-1.2 [facility] Comment on above: Order Comment: Speci men Type: BLOOD SPECIMENOrdering Facility: [facility] Address: [address] [place] [address] Result Comment: Prov ided therapeutic concentrations are based on the 2008 ESC Guidelines for the Diagnosis and Treatment of Acute and Chronic Heart Failure.Reference ranges and high/low indicator flags are provided as general guidelines only. The treating physician must determine appropriate target levels/dosing based on the specific clinical situation. Performed By: #### D IG ####[facility] LABCLIA [id number] [place] [address] [place] HISTORY PHYSICALon HISTORY PHYSICAL Normal [facility] URINALYSIS, DIPSTICK ONLYon 08-24-2023 Bilirubin Ql (U) Negative Normal Negative [facility] Comment on above: Order Comment: Speci men Type: URINE SPECIMENOrdering Facility: [facility] Address: [address] [place] [address] Performed By: #### U A ####[facility] LABCLIA [id number] [place] [address] [place] Clarity (Unsp spec) Cloudy Abnormal Clear [facility] Comment on above: Order Comment: Speci men Type: URINE SPECIMENOrdering Facility: [facility] Address: [address] [place] [address] Performed By: #### U A ####[facility] LABCLIA [id number] [place] [address] [place] Color (U) Yellow Normal Yellow [facility] Comment on above: Order Comment: Speci men Type: URINE SPECIMENOrdering Facility: [facility] Address: [address] [place] [address] Performed By: #### U A ####[facility] LABCLIA [id number] [place] [address] [place] Glucose Test strip (U) [Mass/Vol] Negative Normal Negative [facility] Comment on above: Order Comment: Speci men Type: URINE SPECIMENOrdering Facility: [facility] Address: [address] [place] [address] Performed By: #### U A ####[facility] LABCLIA [id number] [place] [address] [place] Hemoglobin Ql (U) Trace Abnormal Negative [facility] Comment on above: Order Comment: Speci men Type: URINE SPECIMENOrdering Facility: [facility] Address: [address] [place] [address] Performed By: #### U A ####[facility] LABCLIA [id number] [place] [address] [place] Ketones Ql (U) Trace Abnormal Negative [facility] Comment on above: Order Comment: Speci men Type: URINE SPECIMENOrdering Facility: [facility] Address: [address] [place] [address] Performed By: #### U A ####[facility] LABCLIA [id number] [place] [address] [place] Leukocyte esterase Test strip Ql (U) 1+ Abnormal Negative [facility] Comment on above: Order Comment: Speci men Type: URINE SPECIMENOrdering Facility: [facility] Address: [address] [place] [address] Performed By: #### U A ####[facility] LABCLIA [id number] [place] [address] [place] Nitrite Ql (U) Negative Normal Negative [facility] Comment on above: Order Comment: Speci men Type: URINE SPECIMENOrdering Facility: [facility] Address: [address] [place] [address] Performed By: #### U A ####[facility] LABCLIA [id number] [place] [address] [place] pH (U) 5.5 [pH] Normal <8.5 [facility] Comment on above: Order Comment: Speci men Type: URINE SPECIMENOrdering Facility: [facility] Address: [address] [place] [address] Performed By: #### U A ####[facility] LABCLIA [id number] [place] [address] [place] Protein (U) [Mass/Vol] 1+ Abnormal Negative [facility] Comment on above: Order Comment: Speci men Type: URINE SPECIMENOrdering Facility: [facility] Address: [address] [place] [address] Performed By: #### U A ####[facility] LABIA [id number] [place] [address] [place] Specific gravity (U) [Rel density] 1.021 Normal 1.005-1.030 [facility] Comment on above: Order Comment: Speci men Type: URINE SPECIMENOrdering Facility: [facility] Address: [address] [place] [address] Performed By: #### U A ####[facility] [id number] [place] [address] [place] Urobilinogen Ql (U) 1.0 EU/dL Normal 0.2-1.0 EU/dL [facility] Comment on above: Order Comment: Speci men Type: URINE SPECIMENOrdering Facility: [facility] Address: [address] [place] [address] Performed By: #### U A ####[facility] [id number] [place] [address] [place] CBC panel Auto (Bld)on 08-23 Erythrocyte distribution width (RBC) [Ratio] 12.9 % Normal 11.5-15.0 [facility] Comment on above: Order Comment: Speci men Type: BLOOD SPECIMENOrdering Facility: [facility] Address: [address] [place] [address] Performed By: #### 5 8410-2 ####[facility] LABIA [id number] [place] [address] [place] Hematocrit (Bld) [Volume fraction] 43.4 % Normal 36.0-46.0 [facility] Comment on above: Order Comment: Speci men Type: BLOOD SPECIMENOrdering Facility: [facility] Address: [address] [place] [address] Performed By: #### 5 8410-2 ####[facility] LABIA [id number] [place] [address] [place] Hemoglobin (Bld) [Mass/Vol] 14.4 g/dL Normal 11.5-15.5 [facility] Comment on above: Order Comment: Speci men Type: BLOOD SPECIMENOrdering Facility: [facility] Address: [address] [place] [address] Performed By: #### 5 8410-2 ####[facility] [id number] [place] [address] [place] MCH (RBC) [Entitic mass] 30.3 pg Normal 26.0-34.0 [facility] Comment on above: Order Comment: Speci men Type: BLOOD SPECIMENOrdering Facility: [facility] Address: [address] [place] [address] Performed By: #### 5 8410-2 ####[facility] [id number] [place] [address] [place] MCHC (RBC) [Mass/Vol] 33.2 g/dL Normal 30.5-36.0 [facility] Comment on above: Order Comment: Speci men Type: BLOOD SPECIMENOrdering Facility: [facility] Address: [address] [place] [address] Performed By: #### 5 8410-2 ####[facility] [id number] [place] [address] [place] MCV (RBC) [Entitic vol] 91.4 fL Normal 80.0-100.0 [facility] Comment on above: Order Comment: Speci men Type: BLOOD SPECIMENOrdering Facility: [facility] Address: [address] [place] [address] Performed By: #### 5 8410-2 ####[facility] LABCLIA [id number] [place] [address] [place] Nucleated RBC (Bld) [#/Vol] 10*3/uL Normal <0.01 [facility] Comment on above: Order Comment: Speci men Type: BLOOD SPECIMENOrdering Facility: [facility] Address: [address] [place] [address] Performed By: #### 5 8410-2 ####[facility] LABCLIA [id number] [place] [address] [place] Platelet mean volume (Bld) [Entitic vol] 10.5 fL Normal 9.0-12.7 [facility] Comment on above: Order Comment: Speci men Type: BLOOD SPECIMENOrdering Facility: [facility] Address: [address] [place] [address] Performed By: #### 5 8410-2 ####[facility] LABIA [id number] [place] [address] [place] Platelets (Bld) [#/Vol] 215 10*3/uL Normal 150-400 [facility] Comment on above: Order Comment: Speci men Type: BLOOD SPECIMENOrdering Facility: [facility] Address: [address] [place] [address] Performed By: #### 5 8410-2 ####[facility] LABIA [id number] [place] [address] [place] RBC (Bld) [#/Vol] 4.75 10*6/uL Normal 3.90-5.20 [facility] Comment on above: Order Comment: Speci men Type: BLOOD SPECIMENOrdering Facility: [facility] Address: [address] [place] [address] Performed By: #### 5 8410-2 ####[facility] LABIA [id number] [place] [address] [place] WBC (Bld) [#/Vol] 6.24 10*3/uL Normal 3.70-11.00 [facility] Comment on above: Order Comment: Speci men Type: BLOOD SPECIMENOrdering Facility: [facility] Address: [address] [place] [address] Performed By: #### 5 8410-2 ####[facility] LABCLIA [id number] [place] [address] [place] CNOVon 08-23-2023 CNOV Normal [facility] CNOV Normal [facility] CREATININE BLDon 08-23-2023 Creatinine [Mass/Vol] 0.97 mg/dL High 0.58-0.96 [facility] Comment on above: Order Comment: Speci men Type: BLOOD SPECIMENOrdering Facility: [facility] Address: [address] [place] [address] Performed By: #### C RET1 ####[facility] LABIA [id number] [address] STATES [facility] Creatinine and Glomerular filtration rate.predicted panel (S/P/Bld) 61 mL/min/1.73m??? Normal >=60 [facility] Comment on above: Order Comment: Speci men Type: BLOOD SPECIMENOrdering Facility: [facility] Address: [address] [place] [address] Result Comment: Shelley mated Glomerular Filtration Rate [...] accurately reflect actual GFR. Performed By: #### C RET1 ####[facility] LABCLIA [id number] [place] [address] [place] CTA CHEST (GATED) W IVCONon 08-23-2023 CTA CHEST (GATED) W IVCON Normal [facility] Comprehensive metabolic 2000 panelon 08-23-2023 Albumin [Mass/Vol] 4.4 g/dL Normal 3.9-4.9 [facility] Comment on above: Order Comment: Speci men Type: BLOOD SPECIMENOrdering Facility: [facility] Address: [address] [place] [address] Performed By: #### 2 4323-8, 60414-9 ####[facility] LABCLIA [id number] [place] [address] [place] ALP [Catalytic activity/Vol] 66 U/L Normal 34-123 [facility] Comment on above: Order Comment: Speci men Type: BLOOD SPECIMENOrdering Facility: [facility] Address: [address] [place] [address] Performed By: #### 2 4323-8, 47902-2 ####[facility] LABCLIA [id number] [place] [address] [place] ALT [Catalytic activity/Vol] 40 U/L High 7-38 [facility] Comment on above: Order Comment: Speci men Type: BLOOD SPECIMENOrdering Facility: [facility] Address: [address] [place] [address] Performed By: #### 2 4323-8, 35574-4 ####[facility] LABCLIA [id number] [place] [address] [place] Anion gap [Moles/Vol] 9 mmol/L Normal 9-18 [facility] Comment on above: Order Comment: Speci men Type: BLOOD SPECIMENOrdering Facility: [facility] Address: [address] [place] [address] Performed By: #### 2 4323-8, 56187-0 ####[facility] LABCLIA [id number] [place] [address] [place] AST [Catalytic activity/Vol] 31 U/L Normal 13-35 [facility] Comment on above: Order Comment: Speci men Type: BLOOD SPECIMENOrdering Facility: [facility] Address: [address] [place] [address] Performed By: #### 2 4323-8, 44086-8 ####[facility] LABCLIA [id number] [place] [address] [place] Bilirubin [Mass/Vol] 0.8 mg/dL Normal 0.2-1.3 [facility] Comment on above: Order Comment: Speci men Type: BLOOD SPECIMENOrdering Facility: [facility] Address: [address] [place] [address] Performed By: #### 2 4323-8, 53831-9 ####[facility] LABCLIA [id number] [place] [address] [place] Calcium [Mass/Vol] 9.8 mg/dL Normal 8.5-10.2 [facility] Comment on above: Order Comment: Speci men Type: BLOOD SPECIMENOrdering Facility: [facility] Address: [address] [place] [address] Performed By: #### 2 4323-8, 34543-2 ####[facility] LABIA [id number] [place] [address] [place] Chloride [Moles/Vol] 98 mmol/L Normal 97-105 [facility] Comment on above: Order Comment: Speci men Type: BLOOD SPECIMENOrdering Facility: [facility] Address: [address] [place] [address] Performed By: #### 2 4323-8, 54357-6 ####[facility] LABCLIA [id number] [place] [address] [place] CO2 [Moles/Vol] 32 mmol/L High 22-30 [facility] Comment on above: Order Comment: Speci men Type: BLOOD SPECIMENOrdering Facility: [facility] Address: [address] [place] [address] Performed By: #### 2 4323-8, 27257-5 ####[facility] LABIA [id number] [address] [address] [place] Creatinine [Mass/Vol] 0.98 mg/dL High 0.58-0.96 [facility] Comment on above: Order Comment: Nichole becerra Type: BLOOD SPECIMENOrdering Facility: [facility] Address: [address] [place] [address] Performed By: #### 2 4323-8, 25099-3 ####[facility] LABIA [id number] [place] [address] [place] Creatinine and Glomerular filtration rate.predicted panel (S/P/Bld) 60 mL/min/1.73m??? Normal >=60 [facility] Comment on above: Order Comment: Nichole becerra Type: BLOOD SPECIMENOrdering Facility: [facility] Address: [address] [place] [address] Result Comment: Shelley mated Glomerular Filtration Rate [...] actual GFR. Performed By: #### 2 4323-8, 29399-5 ####[facility] LABIA [id number] [place] [address] [place] Glucose [Mass/Vol] 127 mg/dL High 74-99 [facility] Comment on above: Order Comment: Nichole mariam Type: BLOOD SPECIMENOrdering Facility: [facility] Address: [address] [place] [address] Result Comment: The [place] [employer] (ADA) provides guidance for cutoff values for fasting glucose and random glucose. The ADA defines fasting as no caloric intake for at least 8 hours. Fasting plasma glucose results between 100 to 125 mg/dL indicate increased risk for diabetes (prediabetes).Fasting plasma glucose results greater than or equal to 126 mg/dL meet the criteria for diagnosis of diabetes. In the absence of unequivocal hyperglycemia, results should be confirmed by repeat testing. In a patient with classic symptoms of hyperglycemia or hyperglycemic crisis, random plasma glucose results greater than or equal to 200 mg/dL meet the criteria for diagnosis of diabetes.Reference: Standards of Medical Care in Diabetes 2016, [place] [employer]. Diabetes Care. 2016.39(Suppl 1). Performed By: #### 2 4323-8, 39720-8 ####[facility] LABCLIA [id number] [place] [address] [place] Potassium [Moles/Vol] 4.1 mmol/L Normal 3.7-5.1 [facility] Comment on above: Order Comment: Speci men Type: BLOOD SPECIMENOrdering Facility: [facility] Address: [address] [place] [address] Performed By: #### 2 4323-8, 10002-9 ####[facility] LABCLIA [id number] [place] [address] [place] Protein [Mass/Vol] 6.8 g/dL Normal 6.3-8.0 [facility] Comment on above: Order Comment: Speci men Type: BLOOD SPECIMENOrdering Facility: [facility] Address: [address] [place] [address] Performed By: #### 2 4323-8, 05789-2 ####[facility] LABCLIA [id number] [place] [address] [place] Sodium [Moles/Vol] 139 mmol/L Normal 136-144 [facility] Comment on above: Order Comment: Speci men Type: BLOOD SPECIMENOrdering Facility: [facility] Address: [address] [place] [address] Performed By: #### 2 4323-8, 96199-4 ####[facility] LABCLIA [id number] [place] [id number] [place] Urea nitrogen [Mass/Vol] 17 mg/dL Normal 7-21 [facility] Comment on above: Order Comment: Speci men Type: BLOOD SPECIMENOrdering Facility: [facility] Address: [place] [address] Performed By: #### 2 4323-8, 57601-3 ####[facility] LABCLIA [id number] [place] [address] [place] [id number] 08-23-2023 ECG01 Normal [facility] NT-proBNP SerPl-mCncon 08-23 Natriuretic peptide.B prohormone N-Terminal [Mass/Vol] 3265 pg/mL High <450 [facility] Comment on above: Order Comment: Speci men Type: BLOOD SPECIMENOrdering Facility: [facility] Address: [place] [address] Performed By: #### 2 4323-8, 39297-4 ####[facility] LABCLIA [id number] [place] [address] [place] RIGHT HEART CATH REPORTon RIGHT HEART CATH REPORT Normal [facility] US CAROTID ARTERIES ZAC VAS LABon 08-23-2023 US CAROTID ARTERIES ZAC VAS LAB Normal [facility] CNPNon 08-22-2023 CNPN Normal [facility] CNPNon 08-16-2023 CNPN Normal [facility] Outside Cardiovascularon Outside Cardiovascular [id number]# 1.00TIFF Normal [facility] Progress Note-Physicianon Progress Note-Physician [id number]#1 .00TIFF Normal [facility] Echocardiogram-Transesophage anamaria 07-28-2023 Echocardiogram-Transe sophageal [id number]# 1.00TIFF Normal [facility] CNPNon 07-24-2023 CNPN Normal [facility] Discharge Instructionson Discharge Instructions [id number]# 1.00TIFF Normal [facility] Formson 07-24-2023 Forms [id number]#1 .00TIFF Normal [facility] Consent for Treatmenton Consent for Treatment [id number]#1 .00TIFF Normal [facility] Inpatient Clinical Summaryon 07-21-2023 Inpatient Clinical Summary [address] [address] Clinical Summary Person Information: Name: ASYA ASENCIO I Age: 73 Years : 1950 Sex: Female PCP: Peggy Nazario MD Marital Status: Race: White Ethnicity: Non- or Language: [place] Visit Id: Visit Reason: I51.9, I42.8 Speciality: Acuity: Enc Type: Ambulatory/Same Day Surgery Med Service: Surgery Arrival: 07/21/2023 06:33:24 Discharge: Dispo Type: Address: [address] [place] [address] [address] [facility] [id number] Provider Notes: Diagnosis: Problems Active Urethral stricture Renal lesion Atrophic vaginitis Weak urine stream History of urethral stricture Stranguria Feeling of incomplete bladder emptying Cystocele with prolapse Poor urinary stream Other urethral stricture, female Nocturia Urinary hesitancy Former smoker Suprapubic pain Dysuria Urinary urgency Urinary frequency Acute gastroenteritis anxiety Superficial laceration of face Injury of nose acid reflux Smoking Status: Former Smoker Functional Status: Sensory Deficits: History of Falls: Within last three months Mobility Assistance Prior to Admission: ADLs: Independent Current Level of Assistance for Self-Care/Mobility: Cognitive Status: Allergies sulfa drugs (Nausea) morphine (Unknown cause) Demerol HCl (Syncope) Keflex (Nausea and vomiting) meperidine (AOF) Eggs (Unknown) Measurements: Height: 165 cm Weight: 53.8 kg Blood Pressure: 118 mmHg / 57 mmHg BMI: 19.76 kg/m2 Procedures No Procedures Documented Immunizations No Immunizations Documented This Visit Final Med List: amoxicillin-clavulana te (Augmentin 500 mg-125 mg Tab) 1 Tablets By Mouth every 24 hours for 14 Days. Refills: 0. apixaban (Eliquis 5 mg oral tablet) 1 Tablets By Mouth 2 times a day. Refills: 0. aspirin (aspirin 81 mg Oral EC Tab) 1 Tablets By Mouth every day. Refills: 0. atorvastatin (Lipitor 40 mg Tab) 1 Tablets By Mouth at bedtime. Refills: 0. carvedilol (carvedilol 3.125 mg Tab) 1 Tablets By Mouth 2 times a day. Refills: 0. digoxin (digoxin 125 mcg (0.125 mg) Tab) 1 Tablets By Mouth every day. Refills: 0. furosemide (furosemide 40 mg Tab) 1 Tablets By Mouth every day. Refills: 0. lorazepam (LORazepam 1 mg Tab) losartan (losartan 25 mg Tab) 1 Tablets By Mouth every day. Refills: 0. ondansetron (Zofran ODT 4 mg Tab-Dis) 1 Tablets By Mouth every 8 hours. Refills: 0. polyethylene glycol 3350 (polyethylene glycol 3350 17 gram packet) 17 Gram By Mouth every day. Refills: 0. Care Team Members: Attending Physician: Johan HENRIQUEZ MD Consulting Physician: Johan HENRIQUEZ MD Referring Physician: Johan HENRIQUEZ MD Follow up: With: Address: When: Johan HENRIQUEZ [address] [place] [address] [phone] Business (1) Comments: -After your appointment with CC Type Location Start [facility] Office Visit [facility] [place] 01/24/2024 2:30 PM 01/24/2024 2:45 PM Confirmed Patient Education Information: CV - Post-Transesophageal Echocardiogram (Custom) Normal [facility] Inpatient Patient Summaryon 07-21-2023 Inpatient Patient Summary [address] [address] Patient Discharge Instructions PERSON INFORMATION Name: ASYA ASENCIO I Date of : 1950 Current Date: 07/21/2023 09:05:07 PHYSICIANS Admitting Physician: Johan HENRIQUEZ MD Primary Care Physician: Aravind MCMAHON, Peggy Mcmillan PCP Comment: Discharge Diagnosis: Condition at Discharge: Unchanged ASYA ASENCIO I has been given the following list of follow-up instructions, prescriptions, and patient education materials: PATIENT FOLLOW-UP INFORMATION Diet: Discharge Activity: Discharge Restrictions: Wound Care Instructions: Remove Your Dressing In Days Call Your Doctor For: IF UNABLE TO CONTACT YOUR PHYSICIAN AND YOU FEEL IT IS AN EMERGENCY, GO TO THE NEAREST EMERGENCY ROOM OR CALL 911 Home Treatment: Devices/Equipment: None Special Services: Additional Instructions: -Please take CD's with you to your follow up. Primary Care Physician to provide the following pending test results: None Follow up: With: Address: When: Johan HENRIQUEZ [address] [place] [phone] [facility] (1) Comments: -After your appointment with In the event that this physician does not participate in your insurance network, please consult with your insurance company to find a nearby participating provider. Type Location Start [facility] Office Visit [facility] [place] 01/24/2024 2:30 PM 01/24/2024 2:45 PM Confirmed Comment: ELIF Ruiz JOYCE I, have received the attached patient education materials/instruction s and have verbalized understanding: Patient Signature Date Clinican/Nurse Signature Date HERE ARE THE MEDICATION CHANGES THAT OCCURRED DURING YOUR HOSPITAL STAY Medications to Continue with No Changes Other Medications amoxicillin-clavulana te (Augmentin 500 mg-125 mg Tab) 1 Tablets By Mouth every 24 hours for 14 Days. Refills: 0. Last Dose: ____Next Dose: ____ apixaban (Eliquis 5 mg oral tablet) 1 Tablets By Mouth 2 times a day. Refills: 0. Last Dose: ____Next Dose: ____ aspirin (aspirin 81 mg Oral EC Tab) 1 Tablets By Mouth every day. Refills: 0. Last Dose: ____Next Dose: ____ atorvastatin (Lipitor 40 mg Tab) 1 Tablets By Mouth at bedtime. Refills: 0. Last Dose: ____Next Dose: ____ carvedilol (carvedilol 3.125 mg Tab) 1 Tablets By Mouth 2 times a day. Refills: 0. Last Dose: ____Next Dose: ____ digoxin (digoxin 125 mcg (0.125 mg) Tab) 1 Tablets By Mouth every day. Refills: 0. Last Dose: ____Next Dose: ____ furosemide (furosemide 40 mg Tab) 1 Tablets By Mouth every day. Refills: 0. Last Dose: ____Next Dose: ____ lorazepam (LORazepam 1 mg Tab) Last Dose: ____Next Dose: ____ losartan (losartan 25 mg Tab) 1 Tablets By Mouth every day. Refills: 0. Last Dose: ____Next Dose: ____ ondansetron (Zofran ODT 4 mg Tab-Dis) 1 Tablets By Mouth every 8 hours. Refills: 0. Last Dose: ____Next Dose: ____ polyethylene glycol 3350 (polyethylene glycol 3350 17 gram packet) 17 Gram By Mouth every day. Refills: 0. Last Dose: ____Next Dose: ____ Comment: MEDICATION LIST PROVIDED FOR YOU IS A LIST OF YOUR CURRENT MEDICATIONS. PLEASE CARRY THIS WITH YOU AT ALL TIMES. amoxicillin-clavulana te (Augmentin 500 mg-125 mg Tab) 1 Tablets By Mouth every 24 hours for 14 Days. Refills: 0. apixaban (Eliquis 5 mg oral tablet) 1 Tablets By Mouth 2 times a day. Refills: 0. aspirin (aspirin 81 mg Oral EC Tab) 1 Tablets By Mouth every day. Refills: 0. atorvastatin (Lipitor 40 mg Tab) 1 Tablets By Mouth at bedtime. Refills: 0. carvedilol (carvedilol 3.125 mg Tab) 1 Tablets By Mouth 2 times a day. Refills: 0. digoxin (digoxin 125 mcg (0.125 mg) Tab) 1 Tablets By Mouth every day. Refills: 0. furosemide (furosemide 40 mg Tab) 1 Tablets By Mouth every day. Refills: 0. lorazepam (LORazepam 1 mg Tab) losartan (losartan 25 mg Tab) 1 Tablets By Mouth every day. Refills: 0. ondansetron (Zofran ODT 4 mg Tab-Dis) 1 Tablets By Mouth every 8 hours. Refills: 0. polyethylene glycol 3350 (polyethylene glycol 3350 17 gram packet) 17 Gram By Mouth every day. Refills: 0. Pharmacy Information: [facility] [place] [place] Comment: PATIENT EDUCATION INFORMATION Instructions: [place] POST-TRANSESOPHAGEAL ECHOCARDIOGRAM AFTER THE PROCEDURE: Diet: ? May eat/drink and/or take normal daily medications after 10:45 Activity: ? You should have someone stay with you for the next (more content not included)... Normal [facility] Patient Education - [employer] 1 09-21-2022 Patient Education - Text [place] POST-TRANSESOPHAGEAL ECHOCARDIOGRAM AFTER THE PROCEDURE: Diet: ? May eat/drink and/or take normal daily medications after 10:45 Activity: ? You should have someone stay with you for the next 24 hours. ? Do not drive, make important decisions, drink alcohol or operate machinery for the next 24 hours. Medications: ? Resume pre-procedure medications unless otherwise directed. Post Procedure: ? Your throat may be sore and scratchy. This will go away slowly over time. ? Keep follow up appointment Seek Medical Care if: ? Notify your scientist electronics should you have any difficulty swallowing or coughing up blood. ? In the event you are unable to reach your scientist electronics, please call [facility] at [phone] and the automatic profile shaper operator will assist you. Normal [facility] Referrals Officeon 3 Referrals Office [id number]# 1.00TIFF [facility] Consent for Procedure/Surger yon 07-20-2023 Consent for Procedure/Surgery [id number] #1.00TIFF [facility] Consent for Treatmenton 12-0 Consent for Treatment [id number]#1 .00TIFF [facility] Heart and Vascular Office/Cl inic Noteon 07-20-2023 Heart and Vascular Office/Clinic Note History of Present Illness The patient is a very pleasant 73 year old female, who was originally admitted for urinary retention and was found to be in atrial fibrillation with rapid ventricular response. Cardiac consultation was obtained and the patient was found to have severe left ventricular dysfunction by echocardiogram with an ejection fraction of 30-35%, mildly dilated left ventricle, normal right ventricle with moderate to severe mitral regurgitation and severe tricuspid regurgitation with mild pulmonary hypertension and atrial fibrillation. Given the patient's atrial fibrillation, severe left ventricular dysfunction and mitral regurgitation she was referred for left and right heart catheterization to evaluate her coronary anatomy for possible mitral valve repair. [1] As part of her cardiac evaluation she underwent a left and right heart catheterization 07/05/2023 with the following results: CONCLUSIONS: 1. Nonobstructive coronary disease of the ostial left anterior descending which does not appear to be flow-limiting or require further evaluation. 2. Angiographically normal left circumflex and right coronary artery and their tributaries. 3. Severe left ventricular dysfunction with a left ventricular ejection fraction of 25-30%. 4. Severe mitral regurgitation as evidenced by left ventricular angiogram and confirmed by markedly elevated V wave on Page-Lois catheter wedge pressure tracing. 5. Normal left ventricular end diastolic pressure. 6. Mild pulmonary hypertension by right heart catheterization. [2] As part of her cardiac evaluation she underwent a 2D echo with Doppler in 07/03/2023 with the following results: (07/03/2023 13:36 EST Echo Transthoracic Complete) Interpretation Summary Ejection Fraction = 30-35%. Mildly dilated LV with moderate LV systolic dysfunction. Normal RV. Mod-sev MR and sev TR. Mild PA hypertension. Afib. No comparison. [3] Patient is now here in follow-up. She states that she has some fatigue and tiredness as well as dyspnea on exertion and shortness of breath but she is compliant with her medications. Patient is an extremely anxious person, and her Ativan was increased with marginal improvement. She is unaware when she went in atrial fibrillation. She does occasionally feel palpitations. In our office today her blood pressure was 102/52 and pulse is 52 and regular. Physical exam is as below. Lipids dated 07/03/2023 show an HDL 43 and an LDL of 99. EKG dated 07/20/2023 shows atrial fibrillation with ventricular bigeminy, normal axis, normal intervals nonspecific ST and T wave changes. Review of Systems Constitutional: no fever, no chills, no weakness, no fatigue Respiratory: no shortness of breath, no cough, no orthopnea, no wheezing Cardiovascular: no chest pain, no palpitations, no edema Neuro: no dizziness no light headed no syncope Additional ROS info: Except as noted in the above Review of Systems and in the History of Present Illness all other systems have been reviewed and are negative or noncontributory. Physical Exam General: alert, no acute distress Neck: Supple, noJVD nocarotid bruit Cardiovascular: irregularly-irregular rate and rhythm, systolic murmur normal peripheral perfusion Respiratory: Lungs CTA, respirations non labored Extremities: no edema Neurological: oriented x 4, LOC appropriate for age, sensation equal & normal bilaterally, speech normal Skin: Warm, dry, intact- no rash or concerning lesions Assessment/Plan 1. Nonischemic cardiomyopathy: Patient has severe LV dysfunction superimposed on severe mitral regurgitation and severe tricuspid regurgitation with mild pulm hypertension. This is most likely contributing to her atrial fibrillation. Her cardiac catheterization was unremarkable for significant coronary occlusive disease. I recommended the patient undergo a transesophageal echocardiogram to better evaluate her mitral regurgitation and tricuspid vegetation for eventual mitral and tricuspid valve repair. The risk and benefits of the procedure were thoroughly explained the patient including specific attention to lack of onsite surgical backup, and informed written consent was obtained. The patient wishes to go to the [facility] for mitral and tricuspid valve repair if indicated. She will continue her baby aspirin, Eliquis, Lasix, losartan, Coreg and digoxin for heart rate control. It is doubtful that the patient will cardiovert at this time given her severe LV dysfunction and mitral vegetation. We will hold off on cardioversion for right now. 2. Return to office in [address] Henriquez. Follow-up No qualifying data available Problem List/Past Medical History Ongoing acid reflux Acute gastroenteritis anxiety Atrophic vaginitis Cystocele with prolapse Dysuria Feeling of incomplete bladder emptying Former smoker History of urethral stricture Injury of nose Nocturia Other urethral stricture, female Poor urinary stream Renal le (more content not included)... Normal [facility] Comment on above: Result Comment: Elec tronically Signed By: MARTINEZ MCMAHON, Johan Patino\.br\Date and Time Signed: 07/20/23 10:38 EST Physician Orderon 07-20-2023 Physician Order [id number] #1.00TIFF Normal [facility] Ambulatory Visit Summaryon 1 09-19-2022 Ambulatory Visit Summary ASYA ASENCIO I :1950 Visit Date:07/19/2023 Ambulatory Visit Instructions Your Diagnosis Feeling of incomplete bladder emptying Atrophic vaginitis Urethral stricture Your Care Team Attending Physician - CECILIA MCMAHON, Micheline Morgan Primary Care Physician - Aravind MCMAHON, Peggy Mcmillan This Is Your Medications List amoxicillin-clavulana te (Augmentin 500 mg-125 mg Tab) Contact prescribing physician if questions or concerns apixaban (Eliquis 5 mg oral tablet) aspirin (aspirin 81 mg Oral EC Tab) atorvastatin (Lipitor 40 mg Tab) carvedilol (carvedilol 3.125 mg Tab) digoxin (digoxin 125 mcg (0.125 mg) Tab) estradiol topical (Estrace 0.1 mg/g Cream) furosemide (furosemide 40 mg Tab) lorazepam (LORazepam 1 mg Tab) losartan (losartan 25 mg Tab) ondansetron (Zofran ODT 4 mg Tab-Dis) polyethylene glycol 3350 (polyethylene glycol 3350 17 gram packet) Procedures Performed Cardiac catheterization, combined right and left heart (07/05/2023), Cystourethroscopy with dilation of urethral stricture (10/25/2022), Cystoscopy (02/23/2021), Dilation of urethra (02/01/2019), Cystourethroscopy with dilation of urethral stricture (10/10/2017), colon resection, Corneal implant, Cystoscopy, Dilation of urethra, Hysterectomy, Tonsillectomy. Discharge Vitals Heart Rate (Peripheral) 65 Respiratory Rate 16 Blood Pressure 97/63 Height 165 cm Height 65 in Weight 54.4 kg Weight 119.68 lb BMI 19.98 What to do next Scheduled Follow-Up Appointments 2022 10:30 AM EST With: Johan HENRIQUEZ MD Where: Cardiology Clinic Monday 2:30 PM EDT With: Micheline BROOKS MD Where: [facility] Patient Educationon 07-19-20 Patient Education Urology Urodynamic Testing Urodynamic tests are done to determine how well your lower urinary tract is working. The lower urinary tract includes your bladder and the part of your body that drains urine from the bladder (urethra). When your kidneys filter your blood, urine is stored in your bladder until you feel the urge to urinate. Urination requires coordination between the nerves and muscles of your bladder and urethra. When your lower urinary tract is working well, you should be able to: ? Start urinating when your bladder is full. ? Empty your bladder completely. ? Control the flow of your urine. Why do I need urodynamic testing? You may need urodynamic testing to help find the cause of any of these problems: ? Leaking urine (incontinence). ? Problems starting or stopping your urine flow. ? Frequent or painful urination. ? Frequent urinary tract infections. ? Being unable to empty your bladder completely. ? Having strong urges to pass urine (urgency). ? Having a weak flow of urine. What are the risks? Generally, these tests are safe. However, some of the tests have risks, including: ? Discomfort. ? Frequent urge to urinate. ? Bleeding. ? Infection. ? Allergic reactions to medicines or dyes (contrast material). What happens before the test? ? Ask your health care provider about changing or stopping your regular medicines. This is especially important if you are taking diabetes medicines or blood thinners. ? You may be asked to avoid urinating before coming to the test so that you arrive with a full bladder. ? Tell a health care provider about: ? Any allergies you have. ? All medicines you are taking, including vitamins, herbs, eye drops, creams, and tvcs-upg-xmoqemm medicines. ? Whether you are or may be . What happens during the test? You may have various urodynamic tests. The tests may be done separately or may all be done during one visit. You may be given an antibiotic medicine before or after testing to help prevent infection. The types of tests that may be done include: Uroflowmetry This test measures how much urine you pass and how long it takes to pass. ? You will urinate into a certain type of toilet or device (flowmeter). ? The device will measure the volume and the time of your urine flow. ? These measurements will be sent to a computer that creates a graph of your urine flow. Postvoid residual measurement This test measures how much urine is left in your bladder after you urinate. ? The test may be done with ultrasound. In this method, sound waves and a computer will be used to create an image of your bladder. ? The test can also be done by inserting a thin, flexible tube (catheter) into your bladder after you urinate. The remaining urine will be removed through the catheter so it can be measured. ? Remaining urine will be measured in milliliters (mL). If you have more than 100 mL left in your bladder after you urinate, your bladder is not emptying as it should. Cystometric testing This test uses a type of bladder catheter that can measure pressure. ? You may be given a medicine to numb the area (local anesthetic). ? The area around the opening of your urethra will be cleaned. ? A urinary catheter will be passed through your urethra into your bladder and used to empty your bladder completely. ? A measuring catheter will be placed, and your bladder will be filled with warm, germ-free (sterile) water. ? Pressure measurements will be taken: ? As your bladder fills. ? When you feel the need to urinate. ? As your bladder is emptied. ? You may be asked to cough or bear down to check for leakage. ? In some cases, your bladder may be filled with a material that shows up on X-rays (contrast material) so that X-ray pictures can be taken during the test. Electromyogram This test measures the electrical activity of the nerves and muscles of your bladder and the opening of your urethra. ? Sticky patches (electrodes) will be placed near your rectum and urethra to measure electrical activity. ? The measurements will show how well your nerves are communicating with your muscles. What can I expect after the test? ? You should be able to go home right away and do your usual activities. ? You may be told to drink a glass of water every 30 minutes for the first 2 hours after testing. ? Taking a warm bath or using warm, wet cloths (warm compresses) may relieve any discomfort near your urethra. What do the results mean? Talk with your health care provider about what your results mean. Some common causes for abnormal results from urodynamic tests include: ? Enlarged prostate in men. ? Overactive bladder. ? Urinary tract infection. ? Nervous system diseases. ? Spinal cord damage. Questions to ask your health care provider Ask your health care provider, or the department that is doing the test: ? When will my results be (more content not included)... Normal [facility] Urology Office/Clinic Noteon 07-19-2023 Urology Office/Clinic Note Chief Complaint f/u for urinary retention HPI Staff Pt was last seen on 04/26/23. Pt was seen at [facility] on 07/07/23. Pt had Robles. placed at ED visit stating that she was unable to void. Upon inserting the cath, the ED note states that only 100cc was drained. Previous DX: urethral stricture (S/P Cysto/UD), feeling of incomplete bladder emptying, urinary frequency. Estrogen cream 2x a week. CT scan done 04/04/23 shows no calculus or hydronephrosis. Incomplete bladder emptying: pt has cath Leaking: sometimes she feels it leaks around the cath Abdominal pain: pt states she is still having pain in her bladder area off and on History of Present Illness Tests reviewed: reviewed ED records, consult I have reviewed the previous health record information and history for this patient from Dr. Brooks. I have reviewed and verified the staff HPI to be accurate for this encounter. There have been no associated fever, chills, flank pain, or blood in the urine. Denies any urinary infections since last encounter. Review of Systems PHQ Score Initial Depression Screen Score: 0 SCORE ROS - Provider Constitutional: denies weight loss, denies hot flashes. Eyes: denies eye problems. Gastrointestinal: denies nausea, denies vomiting. Cardiovascular: denies chest pain or angina. Integumentary: no dryness Musculoskeletal: denies musculoskeletal symptoms. ENMT: denies otolaryngeal symptoms. Respiratory: no shortness of breath. Heme/Lymph: denies easy bleeding tendency, denies easy bruising tendency. Psychiatric: no confusion, no anxiety. Genitourinary: See HPI. Physical Exam Vitals & Measurements HR: 65(Peripheral) RR: 16 BP: 97/63 HT: 65 in HT: 165 cm WT: 54.4 kg WT: 119.68 lb BMI: 19.98 General Appearance: alert , no acute distress, well nourished, well developed female. Genitourinary: bladder nonpalpable, no flank pain. Assessment/Plan 1. Feeling of incomplete bladder emptying (R39.14: Feeling of incomplete bladder emptying) Pt presented to [facility] ED 07/03/23 due to urinary retention. Robles catheter was placed and about 100 mL of normal saline was drained. [1] Hospital consult with Dr. Leo 07/03/23 - Per Dr. Leo's consult note: states she had palpable urinary retention essentially but once the Robles catheter was placed there was documented avoiding 100 cc. The patient states this was much more. [1] had significant relief upon placement of the Robles catheter. [1] No sample provided for UA today, pt has robles. Discussed robles removal/voiding trial and learning CIC. Educated pt on bladder spasms. Explained to pt that her urination is separate from her cardiac and pulmonary issues. Discussed bladder fxn testing. Follow up 6 mos or sooner if needed. Pt understands and agrees with plan. -Pt to learn CIC today and have voiding trial. Start CIC 2x/day, titrate as needed. -Start prophylactic Augmentin [address] due to starting CIC. Rx sent to [facility]. 2. Atrophic vaginitis (N95.2: Postmenopausal atrophic vaginitis) Has not been using Estrogen cream 2x/week due to cath placement. 3. Urethral stricture (N35.919: Unspecified urethral stricture, male, unspecified site) S/p Cysto/UD 05/23/23, 10/25/22, 03/29/22, 10/10/21. Follow-up With When Contact Information CECILIA MCMAHON, Micheline Morgan, URL [facility] [address], [place] [address]- Additional Instructions: 6 mos Patient Education Urodynamic Testing IFelisa, personally scribed for Dr. Brooks on 07/19/2023 15:59:07. . Documentation recorded by the scribe, Felisa Bautista, accurately reflects the services(s) I performed and decisions made by me. Authenticated by Dr. Brooks on 07/19/2023 16:01:33. Problem List/Past Medical History Ongoing acid reflux Acute gastroenteritis anxiety Atrophic vaginitis Cystocele with prolapse Dysuria Feeling of incomplete bladder emptying Former smoker History of urethral stricture Injury of nose Nocturia Other urethral stricture, female Poor urinary stream Renal lesion Stranguria Superficial laceration of face Suprapubic pain Urethral stricture Urinary frequency Urinary hesitancy Urinary urgency Weak urine stream Historical No qualifying data Procedure/Surgical History Cardiac catheterization, combined right and left heart (07/05/2023), Cystourethroscopy with dilation of urethral stricture (10/25/2022), Cystoscopy (02/23/2021), Dilation of urethra (02/01/2019), Cystourethroscopy with dilation of urethral stricture (10/10/2017), colon resection, Corneal implant, Cystoscopy, Dilation of urethra, Hysterectomy, Tonsillectomy. Medications aspirin 81 mg Oral EC Tab, 81 mg= 1 tab(s), Oral, Daily Augmentin 500 mg-125 mg Tab, 1 tab(s), Oral, q24hr carvedilol 3.125 mg Tab, 3.125 mg= 1 tab(s), Oral, BID digoxin 125 mcg (0.125 mg) Tab, 125 mcg= 1 tab(s), Oral, Daily Eliquis 5 mg oral tablet, 5 mg= 1 tab(s), Oral, BID (more content not included)... [facility] Comment on above: Result Comment: Elec tronically Signed By: Micheline BROOKS MD\.br\Date and Time Signed: 07/19/23 16:01 EST\.br\Electronically Co-Signed By: Felisa Bautista\.br\Date and Time Co-Signed: 07/19/23 15:59 EST Coding Queryon 07-17-2023 Coding Query - From: Natalya Ansari To: Nahid SERRATO MD; Sent: 07/14/2023 12:05:07 EST ! Subject: Coding Query Dr Serrato, In your Progress notes you list- 4. Elevated troponin Secondary to type 2 non-ST segment elevation myocardial infarction from above and mild cad The ekg nor echo showed AK and the Cardiology consult didn't mention it and his recommendations were reviewed and agreed with. Was the AK type II ruled out or should that be coded? Thank you Fiona VERGARA Coding From: Nahid SERRATO MD To: Natalya Ansari; Sent: 07/17/2023 12:28:48 EST Subject: RE: Coding Query Caller Name: ASYA ASENCIO I; Caller Number: H Type 2 acute NSTEMI due to demand ischemia from A-FIB with RVR. (POA) [facility] ED Note-Physicianon 07-15-20 ED Note-Physician Basic Information Time Seen: Jeff Cross DO 07/07/2023 09:00 Chief Complaint discharged yesterday from [facility], reports can't breathe w/exertion History of Present Illness 73-year-old female comes to the ED for evaluation of dyspnea. Patient is visibly anxious on examination. She presents complaining of shortness of breath worse with exertion. She states she was just discharged to the hospital yesterday. She states she was admitted for heart problems and urinary problems but is having difficulty elaborating on this. Her admission notes were reviewed. She was admitted with urinary retention has Robles catheter in place. She also was found of A-fib RVR and underwent a stable cardiac catheterization and was started on Eliquis, Coreg, digoxin. She denies any fever, chills, cough or congestion. No acute chest pain. Review of Systems A 10 point review of systems is negative except as noted above. Medical and Surgical History: Reviewed and noted Social history: Lives at home Tobacco: Denies Physical Exam Vitals & Measurements T: 36.6 ?C(Oral) HR: 134(Peripheral) RR: 24 BP: 125/44 SpO2: 98% HT: 165.15 cm WT: 56.3 kg BMI: 20.64 Nurses notes and vital signs reviewed and patient is not hypoxic. General: Awake and alert, anxious Skin: Warm, dry, no pallor noted. Head: Atraumatic. Neck: No JVD. Eye: Normal conjunctiva. Ears, Nose, Mouth, and Throat: Moist mucous membranes Cardiovascular: Strong distal pulses. Tachycardic Chest wall: Respiratory: Respirations are nonlabored. Back: Normal range of motion, no CVA tenderness. Musculoskeletal: Normal ROM with no gross deformity. Gastrointestinal: Soft and nontender. Urological: Neurological: Awake and alert. No focal deficits. Follows commands. GCS 15. Psychiatric: Cooperative. Anxious Medical Decision Making Patient presents with A-fib RVR. She is visibly anxious and does have a history of anxiety. She is treated with IV Ativan. Laboratory studies are reviewed and noted. EKG with no ischemic changes. Chest x-ray with pulm edema but improved from previous. Her previous records are reviewed. The patient was discharged yesterday but has not yet picked up any of her prescriptions due to the holiday. Therefore she was treated here with IV Lasix and a dose of IV metoprolol. With repeat evaluation she looks and feels much improved. Her heart rate has normalized. Her initial troponin did return elevated at 39, she was was kept for 3 but shows no significant elevation of 42. Case is discussed with her scientist electronics. She just underwent ischemic evaluation including catheterization that was stable. She is deemed safe for discharge home to start her oral medications. Nursing did discuss her medications with her at length to explain what medication facility taken today what needs started in the morning. She will go to pharmacy after discharge and pick these pills up patient was encouraged to return to the ED if symptoms worsen or change. Critical Care Time: 40 minutes, critical care time is separate from any procedures that are performed. The following was considered in the determination of critical care but not limited to the level medical decision-making, intensive cardiac and/or respiratory monitor, frequent vital sign monitoring, evaluation of laboratory studies, evaluation of a radiographic studies, oxygen monitoring and constant monitoring. Assessment/Plan A-fib (I48.91: Unspecified atrial fibrillation) Anxiety (F41.9: Anxiety disorder, unspecified) Orders: furosemide, 40 mg = 4 mL, Injection, IV Push, Once, Stop date 07/07/23 9:40:00 EST, STAT, Start date 07/07/23 9:40:00 EST, 07/07/23 9:40:00 EST lorazepam, 1 mg = 0.5 mL, Injection, IV Push, Once, Stop date 07/07/23 10:00:00 EST, Routine, Start date 07/07/23 10:00:00 EST, 07/07/23 9:02:00 EST metoprolol, 5 mg = 5 mL, Injection, IV Push, Once, Stop date 07/07/23 9:41:00 EST, STAT, Start date 07/07/23 9:41:00 EST, 07/07/23 9:41:00 EST Automated Diff B-Type Natriuretic Peptide Basic Metabolic Panel CBC w/ Auto Diff ED Cardiac Monitoring eGFR Extra SST Tube Oxygen Saturation Oxygen Therapy PT & PTT Saline Lock Insert Troponin 0 Hr. Troponin 3 Hr. XR Chest Single View Medications Administered Given Ativan 2 mg/mL Injection, 1 mg, IV Push Lasix 40 mg/4mL injection, 40 mg, IV Push metoprolol 1 mg/mL Inj, 5 mg, IV Push Disposition Plan Patient Discharge Condition Disposition: Discharged home Condition: Improved and stable Counseled: Patient and/or family were counseled to workup, results, treatment plan and follow-up recommendations Discharge Prescription List Prescriptions No active prescription medications Follow-up With When Contact Information Johan HENRIQUEZ In 3 days 07/10/2023 EST [address] [place] [address]- [phone] Business (1) Additional Instructions: Peggy Bermudezby In 3 days 07/10/[address] [place] [address]- Business (1) Additional Instructions (more content not included)... Normal [facility] Comment on above: Result Comment: Elec tronically Signed By: Jannette Black PA-C\.br\Date and Time Signed: 07/07/23 15:56 EST\.br\Electronically Co-Signed By: Jeff Cross DO\.br\Date and Time Co-Signed: 07/15/23 06:59 EST Cardiovascular Reporton 06-16 Cardiovascular Report [id number]# 2.00TIFF Normal [facility] Nursing Assessmenton 023 Nursing Assessment [id number]# 1.00TIFF Normal [facility] Discharge Instructionson Discharge Instructions [id number]# 1.00TIFF [facility] Auto Diffon 07-07-2023 Basophils/100 WBC (Bld) 0.6 % Normal 0.0-2.0 [facility] Comment on above: Order Comment: Order Added by Discern Expert. Performed By: #### 2 883840, 75143847, 0510135, 2304578, 1132830, 6364715 #### [facility] [address] [place] [address] Basophils/Leukocytes Auto (Bld) [Pure # fraction] 0.0 E9/L Normal 0.0-0.2 [facility] Comment on above: Order Comment: Order Added by Discern Expert. Performed By: #### 2 228984, 62910038, 6172816, 6313305, 8538489, 8142615 #### [facility] [address] [place] [address] Eosinophils/100 WBC (Bld) 1.5 % Normal 0.0-8.0 [facility] Comment on above: Order Comment: Order Added by Discern Expert. Performed By: #### 2 667795, 82448675, 0984310, 8405143, 7269411, 4448170 #### [facility] [address] [place] [address] Eosinophils/Leukocyte s Auto (Bld) [Pure # fraction] 0.1 E9/L Normal 0.0-0.5 [facility] Comment on above: Order Comment: Order Added by Discern Expert. Performed By: #### 2 639643, 77612941, 2057799, 4418977, 6986123, 5511390 #### [facility] [address] [place] [address]455 Lymphocytes/100 WBC (Bld) 15.3 % Normal 14.0-50.0 [facility] Comment on above: Order Comment: Order Added by Discern Expert. Performed By: #### 2 476763, 18701549, 4963774, 3268095, 5739173, 7494282 #### [facility] [address] [place] [address] 9[address] Lymphocytes/Leukocyte s Auto (Bld) [Pure # fraction] 1.2 E9/L Normal 1.0-4.0 [facility] Comment on above: Order Comment: Order Added by Discern Expert. Performed By: #### 2 103958, 81089840, 0314153, 3527767, 4286626, 1170329 #### [facility] [address] [place] [address]507 Monocytes/100 WBC (Bld) 6.4 % Normal 4.0-14.0 [facility] Comment on above: Order Comment: Order Added by Discern Expert. Performed By: #### 2 670719, 24163236, 7827510, 9693144, 7042125, 0914354 #### [facility] [address] [place] [address] Monocytes/Leukocytes Auto (Bld) [Pure # fraction] 0.5 E9/L Normal 0.2-1.0 [facility] Comment on above: Order Comment: Order Added by Discern Expert. Performed By: #### 2 420087, 85294725, 9029607, 3600922, 4633140, 8335980 #### [facility] [address] [place] [address] Neutrophils/100 WBC (Bld) 76.2 % High 36.0-75.0 [facility] Comment on above: Order Comment: Order Added by Discern Expert. Performed By: #### 2 117867, 77465790, 3891775, 4966725, 0245404, 5738003 #### [facility] [address] [place] [address] Neutrophils/Leukocyte s Auto (Bld) [Pure # fraction] 6.1 E9/L Normal 2.0-7.5 [facility] Comment on above: Order Comment: Order Added by Discern Expert. Performed By: #### 2 011650, 42279353, 7404492, 1958107, 3412550, 1137677 #### [facility] [address] [place] [address] BMPon 07-07-2023 Creatinine [Mass/Vol] 0.8 mg/dL Normal 0.5-1.3 [facility] Comment on above: Performed By: #### 2 302253, 53110538, 2160951, 9566026, 8030830, 8817913 #### [facility] [address] [place] [address] Urea nitrogen [Mass/Vol] 13 mg/dL Normal 5-21 [facility] Comment on above: Performed By: #### 2 543042, 58138774, 5321914, 1397921, 7598914, 1867982 #### [facility] [address] [place] [address] Urea nitrogen/Creatinine [Mass ratio] 16 No Units Normal 10-20 [facility] Comment on above: Performed By: #### 2 936826, 41143255, 5334863, 3442334, 8164605, 6002326 #### [facility] [address] [place] [address] Anion gap [Moles/Vol] 14 mmol/L Normal 6-16 [facility] Comment on above: Performed By: #### 2 959770, 43253502, 5141516, 1248515, 7719319, 6264855 #### [facility] [address] [place] [address] Calcium [Mass/Vol] 8.7 mg/dL Low 8.9-11.1 [facility] Comment on above: Performed By: #### 2 059410, 53147146, 1612737, 7069802, 3626245, 2779045 #### [facility] [address] [place] [address] Chloride [Moles/Vol] 100 mmol/L Low 101-111 [facility] Comment on above: Performed By: #### 2 299987, 92350564, 9835861, 6887671, 3908952, 8881918 #### [facility] [address] [place] [address] CO2 [Moles/Vol] 26 mmol/L Normal 21-31 [facility] Comment on above: Performed By: #### 2 088355, 81724502, 8657070, 7679810, 6715476, 9380766 #### [facility] [address] [place] [address] Glucose [Mass/Vol] 137 mg/dL Normal 55-199 [facility] Comment on above: Result Comment: If t his glucose result represents a fasting glucose, interpretation should refer to the following reference range: 55-99 mg/dL Performed By: #### 2 656729, 15524126, 0985175, 3723782, 7512931, 4802892 #### [facility] [address] [place] [address] Potassium [Moles/Vol] 4.3 mmol/L Normal 3.5-5.3 [facility] Comment on above: Performed By: #### 2 919089, 49140083, 7082955, 6322880, 9326278, 0411636 #### [facility] [address] [place] [address] Sodium [Moles/Vol] 136 mmol/L Normal 135-145 [facility] Comment on above: Performed By: #### 2 454368, 65678289, 6842808, 2041611, 2187698, 5862265 #### [facility] [address] [place] [address] BNPon 07-07-2023 Natriuretic peptide B (Bld) [Mass/Vol] 756 pg/mL High 5-80 [facility] Comment on above: Performed By: #### 2 916519, 68519720, 0575013, 5944215, 6191860, 5241567 #### [facility] [address] [place] [address] CBC w/ Auto Diffon Erythrocyte distribution width (RBC) [Ratio] 13.8 % Normal 10.9-14.2 [facility] Comment on above: Performed By: #### 2 173090, 91591637, 7039336, 4561580, 7464662, 5168742 #### [facility] [address] [place] [address] Hematocrit (Bld) [Volume fraction] 40.3 % Normal 34.0-46.0 [facility] Comment on above: Performed By: #### 2 929910, 67647995, 2270654, 7871076, 5837535, 7164595 #### [facility] [address] [place] [address] Hemoglobin (Bld) [Mass/Vol] 13.0 g/dL Normal 12.0-16.0 [facility] Comment on above: Performed By: #### 2 422481, 21986825, 5880026, 6677670, 7846932, 4440849 #### [facility] [address] [place] [address]50 MCH (RBC) [Entitic mass] 29.2 pg Normal 27.0-34.0 [facility] Comment on above: Performed By: #### 2 041473, 02635849, 4933464, 1964094, 2511541, 3559095 #### [facility] [address] [place] [address]29 MCHC (RBC) [Mass/Vol] 32.3 g/dL Normal 31.4-36.0 [facility] Comment on above: Performed By: #### 2 632861, 04312025, 9885303, 1542338, 3408063, 1431433 #### [facility] [address] [place] [address] 49886 MCV (RBC) [Entitic vol] 90.2 fL Normal 80.0-100.0 [facility] Comment on above: Performed By: #### 2 937009, 05994229, 0699291, 6819489, 2070974, 1876127 #### [facility] [address] [place] [address] Platelet mean volume (Bld) [Entitic vol] 8.5 fL Normal 6.4-10.8 [facility] Comment on above: Performed By: #### 2 899215, 53891752, 9043328, 4309500, 7223250, 2704304 #### [facility] [address] [place] [address] 27697 Platelets (Bld) [#/Vol] 291.0 E9/L Normal 150.0-500.0 [facility] Comment on above: Performed By: #### 2 807805, 48554811, 5876285, 4892156, 3221288, 9255916 #### [facility] [address] [place] [address] 59624 RBC (Bld) [#/Vol] 4.5 E12/L Normal 4.3-5.9 [facility] Comment on above: Performed By: #### 2 042465, 05040015, 0804079, 6042548, 3058719, 1526559 #### [facility] [address] [place] [address] WBC corrected for nucl RBC Auto (Bld) [#/Vol] 8.0 E9/L Normal 4.0-11.0 [facility] Comment on above: Performed By: #### 2 887601, 41552868, 8295508, 1485777, 8255844, 4252190 #### [facility] [address] [place] [address] CHEMISTRYOrdered By: SYSTEM SYSTEM on 07-07-2023 Troponin I.cardiac [Mass/Vol] 42.10 pg/mL Invalid Interpretation Code 10.10 - 27.10 pg/mL FT Remisol Comment on above: Result Comment: Crit ical Result verified by previous result\ Critical Result [id number]:42.1 Called to JANNETTE WING at by DAMIEN CORREA and read [...] 77 mL/min/1.73 m2 Normal >=59mL/min/1 .73 m2 [facility] Chem S Comment on above: Interpretive Data: C hronic kidney disease could be indicated at eGFR's of less than 60 mL/min/1.73m2. Kidney failure is indicated at less than 15 mL/min/1.73m2. Glucose [Mass/Vol] 137 mg/dL Normal 55 - 199 mg/dL [facility] Remisol Comment on above: Interpretive Data: I f this glucose result represents a fasting glucose, interpretation should refer to the following reference range: 55-99 mg/dL Potassium [Moles/Vol] 4.3 mmol/L Normal 3.5 - 5.3 mmol/L [facility] Remisol Sodium [Moles/Vol] 136 mmol/L Normal 135 - 145 mmol/L [facility] Remisol Troponin I.cardiac [Mass/Vol] 39.60 pg/mL Invalid Interpretation Code 10.10 - 27.10 pg/mL [facility] Remisol Comment on above: Result Comment: Crit [...] 13 mg/dL Normal 5 - 21 mg/dL [facility] Remisol Urea nitrogen/Creatinine [Mass ratio] 16 mg/mg Normal 10 - 20 [facility] CHEMISTRYOrdered By: Margaret Collier on 07-07-2023 Natriuretic peptide B (Bld) [Mass/Vol] 756 pg/mL High 5 - 80 pg/mL [facility] HemeManSS COAGULATIONOrdered By: Fay Tran on 07-07-2023 aPTT Coag (PPP) [Time] 28.4 s Normal 25.1 - 36.5 second(s) [facility] Auto Coag Comment on above: Interpretive Data: [...] the same coagulation reagent and instrumentation as [facility]. Currently there are no coagulation studies available worldwide for children to 14 days, and no normal ranges. Heparin therapeutic range (represented by Anti-Factor Xa activity of 0.2 - 0.4 U/mL) corresponds to PTT of 56.6 - 109.0 sec. INR Coag (PPP) [Relative time] 1.0 {INR} Invalid Interpretation Code [facility] Auto Coag Comment on above: Interpretive Data: I NR results are specifically intended to assess patients stabilized on long-term Anticoagulation therapy suggested INR s Less Intensive Anticoagulation 2.0 3.0 Conventional Range 3.0 4.5 PT Coag (PPP) [Time] 11.3 s Normal 9.4 - 1 2.5 second(s) [facility] Auto Coag Comment on above: Interpretive Data: [...] the same coagulation reagent and instrumentation as [facility]. Currently there are no coagulation studies available worldwide for children to 14 days, and no normal ranges. Consent for Procedure/Surger yon 07-07-2023 Consent for Procedure/Surgery [id number]# 1.00TIFF Normal [facility] Consent for Treatmenton 06-15 Consent for Treatment [id number]#1 .00TIFF Normal [facility] Discharge Instructionson Discharge Instructions [id number]#1 .00TIFF Normal [facility] ED Clinical Summaryon 2022 ED Clinical Summary [address] [address] ED Clinical Summary Person Information Name: ASYA ASENCIO/[place] Age: 73 Years : 1950 Sex: Female Language: [place] PCP: Peggy Nazario MD Marital Status: Visit Id: Visit Reason: Shortness of breath; SOB Speciality: Acuity: 2 Enc Type: Emergency Med Service: Emergency Arrival: 07/07/2023 08:56:07 Discharge: 07/07/2023 13:04:08 LOS: 000 04:08 Checkin: 07/07/2023 08:56:07 Checkout: 07/07/2023 13:04:08 Dispo Type: Home (Routine DC) EVENTS: Event Name Event Status Request Date/Time Start Date/Time Complete Date/Time Arrive Complete 07/07/2023 08:56:07 07/07/2023 08:56:07 07/07/2023 08:56:07 Document Home Meds Request 07/07/2023 08:56:07 Triage Complete 07/07/2023 08:56:07 07/07/2023 09:03:59 07/07/2023 09:03:59 Bed Assign Complete 07/07/2023 08:57:17 07/07/2023 08:57:17 07/07/2023 08:57:17 Dr Exam Complete 07/07/2023 08:57:17 07/07/2023 09:00:43 07/07/2023 09:00:43 RN Exam Complete 07/07/2023 08:57:17 07/07/2023 09:18:45 07/07/2023 09:18:45 EKG Complete 07/07/2023 08:57:57 07/07/2023 09:04:32 Registration Complete 07/07/2023 08:58:35 07/07/2023 08:58:35 07/07/2023 08:58:35 Reg Complete Request 07/07/2023 08:58:35 Reg Bed Request Complete 07/07/2023 08:58:35 07/07/2023 08:58:35 07/07/2023 08:58:35 Registration Request 07/07/2023 09:00:43 Dr Exam Complete 07/07/2023 09:00:46 07/07/2023 09:00:46 07/07/2023 09:00:46 Pending Labs Request 07/07/2023 09:01:57 Lab Complete 07/07/2023 09:01:57 07/07/2023 09:36:43 Patient Care Request 07/07/2023 09:01:57 RT Request 07/07/2023 09:01:57 X-Ray Complete 07/07/2023 09:01:57 07/07/2023 09:18:25 07/07/2023 09:25:13 Meds Admin Complete 07/07/2023 09:02:53 07/07/2023 09:09:40 Isolation Screening Request 07/07/2023 09:04:00 Pending Labs Complete 07/07/2023 09:16:13 07/07/2023 09:16:13 07/07/2023 09:29:17 Lab Complete 07/07/2023 09:16:13 07/07/2023 09:16:13 07/07/2023 09:29:17 Pending Labs Complete 07/07/2023 09:16:54 07/07/2023 09:16:54 07/07/2023 09:16:55 Pending Labs Complete 07/07/2023 09:19:46 07/07/2023 09:19:46 07/07/2023 09:19:52 Lab Complete 07/07/2023 09:19:46 07/07/2023 09:19:46 07/07/2023 09:19:52 Wet Read Complete 07/07/2023 09:25:13 07/07/2023 09:35:46 07/07/2023 09:35:46 Meds Admin Complete 07/07/2023 09:41:20 07/07/2023 10:02:18 Discharge Complete 07/07/2023 12:45:52 07/07/2023 13:04:13 07/07/2023 13:04:13 Transfer Complete 07/07/2023 13:04:13 07/07/2023 13:04:13 07/07/2023 13:04:13 ADDRESS: [address] [place] [address] [address] [facility] [phone] PHYS DOC NOTES: MEDICAL INFORMATION: Prescriptions Given: Medications to Continue with No Changes Other Medications apixaban (Eliquis 5 mg oral tablet) 1 Tablets By Mouth 2 times a day. Refills: 0. aspirin (aspirin 81 mg Oral EC Tab) 1 Tablets By Mouth every day. Refills: 0. atorvastatin (Lipitor 40 mg Tab) 1 Tablets By Mouth at bedtime. Refills: 0. carvedilol (carvedilol 3.125 mg Tab) 1 Tablets By Mouth 2 times a day. Refills: 0. digoxin (digoxin 125 mcg (0.125 mg) Tab) 1 Tablets By Mouth every day. Refills: 0. estradiol topical (Estrace 0.1 mg/g Cream) 0.5 Gram Vaginal Monday & Monday. Refills: 6. furosemide (furosemide 40 mg Tab) 1 Tablets By Mouth every day. Refills: 0. lorazepam (Ativan 0.5 mg Tab) 1 Tablets By Mouth 3 times a day as needed as needed for anxiety. losartan (losartan 25 mg Tab) 1 Tablets By Mouth every day. Refills: 0. ondansetron (Zofran ODT 4 mg Tab-Dis) 1 Tablets By Mouth every 8 hours. Refills: 0. polyethylene glycol 3350 (polyethylene glycol 3350 17 gram packet) 17 Gram By Mouth every day. Refills: 0. PATIENT EDUCATION INFORMATION: Instructions: Managing Anxiety, Adult; Atrial Fibrillation Follow up: With: Address: When: [place] [phone] Business (1) In 3 days 07/10/2023 With: Address: When: Peggy Nazairo [address] [place] [address] Business (1) In 3 days 07/10/2023 DIAGNOSIS: A-fib; Anxiety Normal [facility] ED Note-Nursingon 07-07-2023 ED Note-Nursing discussed in length medications pt needs to take yet today and need to orange picker Rx 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 Normal [facility] ED Patient Education Noteon 07-07-2023 ED Patient Education Note Cardiovascular Atrial Fibrillation Atrial fibrillation is a type of irregular or rapid heartbeat (arrhythmia). In atrial fibrillation, the top part of the heart (atria) beats [...] damage the heart's electrical system. These include: ? High blood pressure (hypertension). This is the most common cause. ? Certain heart problems or conditions, such as heart failure, coronary artery disease, heart valve problems, or heart surgery. ? Diabetes. ? Overactive thyroid (hyperthyroidism). ? Obesity. ? Chronic kidney disease. In some cases, the cause of this condition is not known. What increases the risk? This condition is more likely to develop in: ? Older people. ? People who smoke. ? Athletes who do endurance exercise. ? People who have a family history of atrial fibrillation. ? Men. ? People who use drugs. ? People who drink a lot of alcohol. ? People who have lung conditions, such as emphysema, pneumonia, or COPD. ? People who have obstructive sleep apnea. What are the signs or symptoms? Symptoms of this condition include: ? A feeling that your heart is racing or beating irregularly. ? Discomfort or pain in your chest. ? Shortness of breath. ? Sudden light-headedness or weakness. ? Tiring easily during exercise or activity. ? Fatigue. ? Syncope (fainting). ? Sweating. In some cases, there are no symptoms. How is this diagnosed? Your health care provider may detect atrial fibrillation when taking your pulse. If detected, this condition may be diagnosed with: ? An electrocardiogram (ECG) to check electrical signals of the heart. ? An ambulatory ekg monitor tech to record your heart's activity for a few days. ? A transthoracic echocardiogram (TTE) to create pictures of your heart. ? A transesophageal echocardiogram (HAROON) to create even closer pictures of your heart. ? A stress test to check your blood supply while you exercise. ? Imaging tests, such as a CT scan or chest X-ray. ? Blood tests. How is this treated? Treatment depends on underlying conditions and how you feel when you experience atrial fibrillation. This condition may be treated with: ? Medicines to prevent blood clots or to treat heart rate or heart rhythm problems. ? Electrical cardioversion to reset the heart's rhythm. ? A pacemaker to correct abnormal heart rhythm. ? Ablation to remove the heart tissue that sends abnormal signals. ? Left atrial appendage closure to seal the area where blood clots can form. In some cases, underlying conditions will be treated. Follow these instructions at home: Medicines ? Take over-the counter and prescription medicines only as told by your health care provider. ? Do not take any new medicines without talking to your health care provider. ? If you are taking blood thinners: ? Talk with your health care provider before you take any medicines that contain aspirin or NSAIDs, such as ibuprofen. These medicines increase your risk for dangerous bleeding. ? Take your medicine exactly as told, at the same time every day. ? Avoid activities that could cause injury or bruising, and follow instructions about how to prevent falls. ? Wear a medical alert bracelet or carry a card that lists what medicines you take. Lifestyle ? Do not use any products that contain nicotine or tobacco, such as cigarettes, e-cigarettes, and chewing tobacco. If you need help quitting, ask your health care provider. ? Eat heart-healthy foods. Talk with a dietitian to make an eating plan that is right for you. ? Exercise regularly as told by your health care provider. ? Do not drink alcohol. ? Lose weight if you are overweight. ? Do not use drugs, including cannabis. General instructions ? If you have obstructive sleep apnea, manage your condition as told by your health care provider. ? Do not use diet pills unless your health care provider approves. Diet pills can make heart problems worse. ? Keep all follow-up visits as told by your health care provider. This is important. Contact a health care provider if you: ? Notice a change in the rate, rhythm, or strength of your heartbeat. ? Are taking a blood thinner and you notice more bruising. ? Tire more easily when you exercise or do heavy work. ? Have a sudden change in weight. Get help right away if you have: ? Chest pain, abdominal pain, sweating, or weakness. ? Trouble breathing. (more content not included)... Normal [facility] ED Patient Summaryon 023 ED Patient Summary [place] [id number] Patient Discharge Instructions Person Information Name: ASYA ASENCIO I Age: 73 Years Arrival Date: 07/07/2023 08:56:07 Discharge Diagnosis: A-fib; Anxiety Primary Care Physician: Aravind MCMAHON, Peggy Mcmillan Provider Information Primary Provider: Jeff Cross DO Advanced Technical Internship:Jannette Black PA-C The exam and treatment you received in the Emergency Department were for an urgent problem and are not intended as complete care. It is important that you follow up with a doctor, nurse practitioner, or physician?s assistant operations manager for ongoing care. If your symptoms become worse or you do not improve as expected and you are unable to reach your usual health care provider, you should return to the Emergency Department. We are available 24 hours a day. ASYA ASENCIO I has been given the following list of patient education materials, prescriptions and follow-up instructions: Follow-up Instructions: With: Address: When: Johan HENRIQUEZ [address] [place], [place] [phone] [employer] (1) In 3 days 07/10/2023 With: Address: When: Peggy Nazario [address] [place] [address] [employer] (1) In 3 days 07/10/2023 In the event that this physician does not participate in your insurance network, please consult with your insurance company to find a nearby participating provider. Patient Education Materials: Managing Anxiety, Adult; Atrial Fibrillation A MESSAGE TO ALL PATIENTS REGARDING OPIOIDS PRESCRIPTION OPIOIDS: WHAT YOU NEED TO KNOW Prescription opioids can be used to help relieve svdwrtbk-ry-qzfemc pain and are often prescribed following a surgery or injury, or for certain health conditions. These medications can be an important part of the treatment but also come with serious risks. It is important to work with your healthcare provider to make sure you are getting the safest, most effective care. WHAT ARE THE RISKS AND SIDE EFFECTS OF OPIOID USE? Prescription opioids carry serious risks of addiction and overdose, especially with prolonged use. An opioid overdose, often marked by slowed breathing, can cause sudden . The use of prescription opioids can have a number of side effects as well, even when taken as directed: ? Tolerance?meaning you might need to take more of the medication for the same pain relief ? Physical dependence?meaning you have symptoms of withdrawal when a medication is stopped ? Increased sensitivity to pain ? Constipation ? Nausea, vomiting, and dry mouth ? Sleepiness and dizziness ? Confusion ? Depression ? Low levels of testosterone that can result in lower sex drive, energy, and strength ? Itching and sweating RISKS ARE GREATER WITH: ? History of drug misuse, substance use disorder, or overdose ? Mental health conditions (such as depression or anxiety) ? Sleep apnea ? Older age (65 years and older) ? Avoid alcohol while taking prescription opioids. Also, unless specifically advised by your health care provider, medications to avoid include: ? Benzodiazepines (such as Xanax or Valium) ? Muscle relaxants (such as Soma or Flexeril) ? Hypnotics (such as Ambien or Lunesta) ? Other prescription opioids KNOW YOUR OPTIONS Talk to your health care provider about ways to manage your pain that don?t involve prescription opioids. Some of these options may actually work better and have fewer risks and side effects. Options may include: ? Pain relievers such as acetaminophen, ibuprofen, and naproxen ? Some medication that are also used for depression or seizures ? Physical therapy and exercise ? Cognitive behavioral therapy, a psychological, goal-directed approach, in which patients learn how to modify physical, behavioral, and emotional triggers of pain and stress. IF YOU ARE PRESCRIBED OPIOIDS FOR PAIN: ? Never take opioids in greater amounts or more often than prescribed. ? Follow up with your primary health care provider. o Work together to create a plan on how to manage your pain. o Talk about ways to help manage your pain that don?t involve prescription opioids. o Talk about any and all concerns and side effects. ? Help prevent misuse and abuse o Never sell or share prescription opioids. o Never use another person?s prescription opioids. ? Store prescription opioids in a secure place and out of reach of others (this may include visitors, children, friends, and family). ? Safely dispose of unused prescription opioids: Find your community drug take-back program or your pharmacy mail-back program, or flush them down the toilet, following guidance from the Food and Drug Administration (www.fda.gov/Drugs/Re sourcesForYou). ? Visit www.cdc.gov/drugoverd ose to learn about the risks of opioids abuse and overdose. ? If you believe you may be struggling with addiction, tel (more content not included)... Normal [facility] HEMATOLOGYOrdered By: SYSTEM SYSTEM on 07-07-2023 Basophils/100 WBC (Bld) 0.6 % Normal 0.0 - 2.0 % [facility] HemeAutoSS Basophils/Leukocytes Auto (Bld) [Pure # fraction] 0.0 E9/L Normal 0.0 - 0.2 E9/L [facility]Auto[facility] Eosinophils/100 WBC (Bld) 1.5 % Normal 0.0 - 8.0 % [facility]AutoSS Eosinophils/Leukocyte s Auto (Bld) [Pure # fraction] 0.1 E9/L Normal 0.0 - 0.5 E9/L [facility] Lymphocytes/100 WBC (Bld) 15.3 % Normal 14.0 - 50.0 % [facility]eAuto[facility] Lymphocytes/Leukocyte s Auto (Bld) [Pure # fraction] 1.2 E9/L Normal 1.0 - 4.0 E9/L [facility] Monocytes/100 WBC (Bld) 6.4 % Normal 4.0 - 14.0 % [facility]eAutoSS Monocytes/Leukocytes Auto (Bld) [Pure # fraction] 0.5 E9/L Normal 0.2 - 1.0 E9/L [facility] Neutrophils/100 WBC (Bld) 76.2 % High 36.0 - 75.0 % [facility]eAutoSS Neutrophils/Leukocyte s Auto (Bld) [Pure # fraction] 6.1 E9/L Normal 2.0 - 7.5 E9/L [facility] HEMATOLOGYOrdered By: Sharifa Castillo on 07-07-2023 Erythrocyte distribution width (RBC) [Ratio] 13.8 % Normal 10.9 - 14.2 % [facility] Hematocrit (Bld) [Volume fraction] 40.3 % Normal 34.0 - 46.0 % [facility] HemeAutoSS Hemoglobin (Bld) [Mass/Vol] 13.0 g/dL Normal 12.0 - 16.0 gm/dL [facility] HemeAutoSS MCH (RBC) [Entitic mass] 29.2 pg Normal 27.0 - 34.0 pg [facility]eAutoSS MCHC (RBC) [Mass/Vol] 32.3 g/dL Normal 31.4 - 36.0 gm/dL [facility]eAuto[facility] MCV (RBC) [Entitic vol] 90.2 fL Normal 80.0 - 100.0 fL [facility] Platelet mean volume (Bld) [Entitic vol] 8.5 fL Normal 6.4 - 10.8 fL [facility]eAutoSS Platelets (Bld) [#/Vol] 291.0 E9/L Normal 150.0 - 500.0 E9/L [facility]eAuto[facility] RBC (Bld) [#/Vol] 4.5 E12/L Normal 4.3 - 5.9 E12/L [facility]eAutoSS WBC corrected for nucl RBC Auto (Bld) [#/Vol] 8.0 E9/L Normal 4.0 - 11.0 E9/L [facility] HemeAutoSS Insurance Correspondence Off iceon 07-07-2023 Insurance Correspondence Office [id number]#1 .[id number] Normal [facility] Monitor Recordon 07-07-2023 Monitor Record [id number]# 1.00TIFF Normal [facility] Monitor Record [id number]# 1.00TIFF Normal [facility] Monitor Record [id number]# 1.00TIFF Normal [facility] PT & PTTon 07-07-2023 aPTT Coag (PPP) [Time] 28.4 second(s) Normal 25.1-36.5 [facility] Comment on above: Result Comment: Para [...] the same coagulation reagent and instrumentation as [facility]. Currently there are no coagulation studies available worldwide for children to 14 days, and no normal ranges. Heparin therapeutic range (represented by Anti-Factor Xa activity of 0.2 - 0.4 U/mL) corresponds to PTT of 56.6 - 109.0 sec. Performed By: #### 2 [id number], [id number], 8179949, 5056252, 5673380, [id number] #### [facility] [address] [place] [address] INR Coag (PPP) [Relative time] 1.0 {INR} Invalid Interpretation Code [facility] Comment on above: Result Comment: INR results are specifically intended to assess patients stabilized on long-term Anticoagulation therapy suggested INR?s ?Less Intensive Anticoagulation? 2.0 ? 3.0 Conventional Range 3.0 ? 4.5 Performed By: #### 2 557599, [id number], 8190728, 9673798, 9809869, 0300383 #### [facility] [address] [place] [address] PT Coag (PPP) [Time] 11.3 second(s) Normal 9.4-12.5 [facility] Comment on above: Result Comment: 15 [...] the same coagulation reagent and instrumentation as [facility]. Currently there are no coagulation studies available worldwide for children to 14 days, and no normal ranges. Performed By: #### 2 495454, [id number], 2718950, 2728250, 9774920, 1977236 #### [facility] [address] [place] [address] Troponin 0 Hr.on 07-07-2023 Troponin I.cardiac [Mass/Vol] 39.60 pg/mL Abnormal 10.10-27.10 [facility] Comment on above: Result Comment: Crit ical Result verified by repeat analysis\ Critical Result I_hsTnI:39.6 Called to TANESHA BAUMANN at ER by DAMIEN CORREA and read back for confirmation at 07/07/2023 10:30:10 The 95% CI (Confidence Interval) PPV (Positive Predictive Value) for myocardial infarction in females is 38 pg/mL, in males 51 pg/mL. The results should be used in conjunction with clinical conditions of myocardial infarction. (Access High Sensitivity Troponin I Instructions For Use, [employer], March 2018) Performed By: #### 2 710733, [id number], 4133128, 6805210, 1402643, 9200599 #### [facility] [address] [place] [address] Troponin 3 Hr.on 07-07-2023 Troponin I.cardiac [Mass/Vol] 42.10 pg/mL Abnormal 10.10-27.10 [facility] Comment on above: Result Comment: Crit ical Result verified by previous result\ Critical Result I_hsTnI:42.1 Called to JANNETTE WING at ER by DAMIEN CORREA and read back for confirmation at 07/07/2023 12:28:40 The 95% CI (Confidence Interval) PPV (Positive Predictive Value) for myocardial infarction in females is 38 pg/mL, in males 51 pg/mL. The results should be used in conjunction with clinical conditions of myocardial infarction. (Access High Sensitivity Troponin I Instructions For Use, SnapsortMarch 2018) Performed By: #### 1 [id number] ####[facility] [address] [place] [address] XR Chest Single Viewon 07-07 XR Chest Single View Exam Date/Time: 07/07/2023 09:25 EST Reason for Exam: Chest pain Report IMPRESSION: IMPROVED INTERSTITIAL EDEMA FROM 07/02/2023. SMALL PLEURAL EFFUSIONS AND MILD TO MODERATE PROBABLE LOWER LUNG ZONE ATELECTASIS. BRONCHOPNEUMONIA SHOULD BE EXCLUDED CLINICALLY. EXAM: XR Chest Single View DATE: 07/07/2023 9:18 AM CLINICAL HISTORY: Chest pain. COMPARISON: 07/02/2023 TECHNIQUE: A portable upright AP radiograph of the chest was obtained. FINDINGS: Diffuse interstitial opacities have improved from 07/02/2023. The heart remains mildly enlarged with mild vascular congestion. Small pleural effusions are present with mild to moderate probable atelectasis of the visualized lung bases. Bronchopneumonia should be excluded clinically. Ordering Provider: Jannette Black FINAL REPORT Dictated: 07/07/2023 12:20 pm London Padilla MD Signed (Electronic Signature): 07/07/2023 12:20 pm Signed by: London Padilla MD Transcribed by: ARAVIND Technologist: TABITHA Technical Comments Radiation Dose: Ka,r in mGy = na DAP = na Normal [facility] eGFRon 07-07-2023 GFR/1.73 sq M.predicted among non-blacks MDRD (S/P/Bld) [Vol rate/Area] 77 mL/min/1.73 m2 Normal >=59 [facility] Comment on above: Order Comment: Order added by Discern Expert. Result Comment: Varnish Finisher luis kidney disease could be indicated at eGFR's of less than 60 mL/min/1.73m2. Kidney failure is indicated at less than 15 mL/min/1.73m2. Performed By: #### 2 618092, [id number], 1017378, 3488132, 4543399, 9537158 #### [facility] [address] [place] [address] BMPon 07-06-2023 Anion gap [Moles/Vol] 5 mmol/L Low 6-16 Fis [facility] Comment on above: Performed By: #### 2 930184, 56925572, 8028748, 0115110, 6520961, 3970539 #### [facility] [address] [place] [address] Calcium [Mass/Vol] 8.0 mg/dL Low 8.9-11.1 [facility] Comment on above: Performed By: #### 2 494362, 93979464, 0282975, 9486616, 1491426, 0099035 #### [facility] [address] [place] [address] Chloride [Moles/Vol] 109 mmol/L Normal 101-111 [facility] Comment on above: Performed By: #### 2 867097, 16635344, 5230954, 1997281, 2795152, 2858344 #### [facility] [address] [place] [address] CO2 [Moles/Vol] 28 mmol/L Normal 21-31 [facility] Comment on above: Performed By: #### 2 100909, 65892713, 0535365, 2702788, 1382029, 5925958 #### [facility] [address] [place] [address] Creatinine [Mass/Vol] 0.7 mg/dL Normal 0.5-1.3 [facility] Comment on above: Performed By: #### 2 702788, 75092915, 1631084, 3374620, 3932808, 9571385 #### [facility] [address] [place] [address] Glucose [Mass/Vol] 91 mg/dL Normal 55-199 [facility] Comment on above: Result Comment: If t his glucose result represents a fasting glucose, interpretation should refer to the following reference range: 55-99 mg/dL Performed By: #### 2 191535, 16504305, 5777746, 9717614, 3610225, 6999870 #### [facility] [address] [place] [address] Potassium [Moles/Vol] 3.9 mmol/L Normal 3.5-5.3 [facility] Comment on above: Performed By: #### 2 863160, 95572821, 5089909, 7704315, 8534159, 2036400 #### [facility] [address] [place] [address] Sodium [Moles/Vol] 138 mmol/L Normal 135-145 [facility] Comment on above: Performed By: #### 2 867602, 33961468, 1220772, 8944648, 4766294, 1036520 #### [facility] [address] [place] [address] Urea nitrogen [Mass/Vol] 12 mg/dL Normal 5-21 [facility] Comment on above: Performed By: #### 2 143105, 93442197, 0429198, 7889103, 7487779, 5953711 #### [facility] [address] [place] [address] Urea nitrogen/Creatinine [Mass ratio] 17 No Units Normal 10-20 [facility] Comment on above: Performed By: #### 2 086105, 01558065, 9545781, 9927162, 9241873, 5579596 #### [facility] [address] [place] [address] CHEMISTRYOrdered By: SYSTEM SYSTEM on 07-06-2023 Anion gap [Moles/Vol] 5 mmol/L Low 6 - 16 mEq/L [facility] Remisol Calcium [Mass/Vol] 8.0 mg/dL Low 8.9 - 11. 1 mg/dL [facility] Remisol Chloride [Moles/Vol] 109 mmol/L Normal 101 - 1 11 mmol/L [facility] Remisol CO2 [Moles/Vol] 28 mmol/L Normal 21 - 31 mmol/L [facility] Remisol Creatinine [Mass/Vol] 0.7 mg/dL Normal 0.5 - 1.3 mg/dL [facility] Remisol GFR/1.73 sq M.predicted among non-blacks MDRD (S/P/Bld) [Vol rate/Area] 90 mL/min/1.73 m2 Normal >=59mL/min/1 .73 m2 [facility] Chem S Comment on above: Interpretive Data: C hronic kidney disease could be indicated at eGFR's of less than 60 mL/min/1.73m2. Kidney failure is indicated at less than 15 mL/min/1.73m2. Glucose [Mass/Vol] 91 mg/dL Normal 55 - 199 mg/dL [facility] Remisol Comment on above: Interpretive Data: I f this glucose result represents a fasting glucose, interpretation should refer to the following reference range: 55-99 mg/dL Potassium [Moles/Vol] 3.9 mmol/L Normal 3.5 - 5.3 mmol/L [facility] Remisol Sodium [Moles/Vol] 138 mmol/L Normal 135 - 145 mmol/L [facility] Remisol Urea nitrogen [Mass/Vol] 12 mg/dL Normal 5 - 21 mg/dL [facility] Remisol Urea nitrogen/Creatinine [Mass ratio] 17 mg/mg Normal 10 - 20 [facility] Remisol Discharge Note-Nursingon Discharge Note-Nursing ASYA ASENCIO I :1950 Visit Date:07/02/2023 Inpatient Discharge Instructions Your Care Team Admitting Physician - Noman PATTON DO Consulting Physician - DYLAN MCMAHON, Cody Goff MD, Eb Mcmillan. [facility] Cardio, XXXX Reason for Your Visit I cannot urinate Your Diagnosis Atrial fibrillation with RVR Acute systolic congestive heart failure Severe mitral regurgitation Elevated troponin Mild coronary artery disease anxiety Pleural effusion Urinary hesitancy Other urethral stricture, female Urinary retention Constipation On deep vein thrombosis (DVT) prophylaxis Genitourinary problem Tests Performed Automated Diff BMP Capillary Glucose POC CBC w/ Auto Diff eGFR Fasting Lipid Profile Hemoglobin A1c Hepatic Function Panel Magnesium Level PT & PTT Troponin Troponin 0 Hr. Troponin 3 Hr. TSH With T4fr Reflex UA With Cult Reflex Echo Transthoracic Complete XR Chest Single View This Is Your Medications List apixaban (Eliquis 5 mg oral tablet) aspirin (aspirin 81 mg Oral EC Tab) atorvastatin (Lipitor 40 mg Tab) carvedilol (carvedilol 3.125 mg Tab) digoxin (digoxin 125 mcg (0.125 mg) Tab) estradiol topical (Estrace 0.1 mg/g Cream) furosemide (furosemide 40 mg Tab) lorazepam (Ativan 0.5 mg Tab) losartan (losartan 25 mg Tab) ondansetron (Zofran ODT 4 mg Tab-Dis) polyethylene glycol 3350 (polyethylene glycol 3350 17 gram packet) [Image Removed: STOP]Stop taking these medications ciprofloxacin (Cipro 500 mg Tab) dicyclomine (Bentyl 10 mg Cap) Procedure History Cardiac catheterization, combined right and left heart (07/05/2023), Cystourethroscopy with dilation of urethral stricture (10/25/2022), Cystoscopy (02/23/2021), Dilation of urethra (02/01/2019), Cystourethroscopy with dilation of urethral stricture (10/10/2017), colon resection, Corneal implant, Cystoscopy, Dilation of urethra, Hysterectomy, Tonsillectomy. Discharge Vitals Temperature (Oral) 36.7 ?C Heart Rate (Monitored) 78 Blood Pressure 105/69 Weight 59.7 kg What to do next Instructions From Your Doctor Event Name Event Result Discharge Activity Ambulate as tolerated, Activity as tolerated Discharge Diet(s) Fat Modified- Low cholesterol, Low Sodium- 2000 mg, Other: 1800 mils per day fluid restriction Pharmacy Information [facility] Previously Scheduled Follow-Up Appointments Monday 1:00 PM EDT With: CECILIA MCMAHON, Micheline Morgan Where: [facility] Inpatient Clinical Summaryon 07-06-2023 Inpatient Clinical Summary [place] [id number] Clinical Summary Person Information: Name: ASYA ASENCIO I Age: 73 Years : 1950 Sex: Female PCP: Aravind MCMAHON, Peggy Mcmillan Marital Status: Race: White Ethnicity: Non- or Language: [place] Visit Id: Visit Reason: Genitourinary problem; 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 Speciality: Acuity: Enc Type: Observation Med Service: Medical Arrival: 07/02/2023 21:17:31 Discharge: Dispo Type: Admitted as IP to this [facility] Address: [address] [place] [address] [address] [facility] [id number] Provider Notes: Diagnosis: 1:Atrial fibrillation with RVR; 2:Acute systolic congestive heart failure; 3:Severe mitral regurgitation; 4:Elevated troponin; 5:Mild coronary artery disease; 6:anxiety; 7:Pleural effusion; 8:Urinary hesitancy; 9:Other urethral stricture, female; 11:Constipation; 12:On deep vein thrombosis (DVT) prophylaxis Problems Active Renal lesion Atrophic vaginitis Weak urine stream History of urethral stricture Stranguria Feeling of incomplete bladder emptying Cystocele with prolapse Poor urinary stream Other urethral stricture, female Nocturia Urinary hesitancy Former smoker Suprapubic pain Dysuria Urinary urgency Urinary frequency Acute gastroenteritis anxiety Superficial laceration of face Injury of nose acid reflux Smoking Status: Never Smoker Functional Status: Sensory Deficits: History of Falls: Within last three months Mobility Assistance Prior to Admission: Independent ADLs: Independent Current Level of Assistance for Self-Care/Mobility: Cognitive Status: Oriented x 3 Allergies sulfa drugs (Nausea) morphine (Unknown cause) Demerol HCl (Syncope) Keflex (Nausea and vomiting) meperidine (AOF) Eggs (Unknown) Measurements: Height: 165.10 cm Weight: 59.7 kg Blood Pressure: 105 mmHg / 69 mmHg BMI: 21.06 kg/m2 Procedures Cardiac catheterization, combined right and left heart (07/05/2023) Immunizations No Immunizations Documented This Visit Final Med List: apixaban (Eliquis 5 mg oral tablet) 1 Tablets By Mouth 2 times a day. Refills: 0. aspirin (aspirin 81 mg Oral EC Tab) 1 Tablets By Mouth every day. Refills: 0. atorvastatin (Lipitor 40 mg Tab) 1 Tablets By Mouth at bedtime. Refills: 0. carvedilol (carvedilol 3.125 mg Tab) 1 Tablets By Mouth 2 times a day. Refills: 0. digoxin (digoxin 125 mcg (0.125 mg) Tab) 1 Tablets By Mouth every day. Refills: 0. estradiol topical (Estrace 0.1 mg/g Cream) 0.5 Gram Vaginal Monday & Monday. Refills: 6. furosemide (furosemide 40 mg Tab) 1 Tablets By Mouth every day. Refills: 0. lorazepam (Ativan 0.5 mg Tab) 1 Tablets By Mouth 3 times a day as needed as needed for anxiety. losartan (losartan 25 mg Tab) 1 Tablets By Mouth every day. Refills: 0. ondansetron (Zofran ODT 4 mg Tab-Dis) 1 Tablets By Mouth every 8 hours. Refills: 0. polyethylene glycol 3350 (polyethylene glycol 3350 17 gram packet) 17 Gram By Mouth every day. Refills: 0. Care Team Members: Attending Physician: Noman PATTON DO Consulting Physician: Shell MCMAHON, Eb Mcmillan.; DYLAN MCMAHON, Cody Dumont; [facility] Cardio, XXXX Referring Physician: Follow up: With: Address: When: Johan HENRIQUEZ [address] [place] [id number] [phone] Business (1) Within 2 weeks Comments: Call for followup appointment With: Address: When: Peggy Nazario [address] [place] [address] Business (1) 07/10/2023 1:00 PM With: Address: When: Micheline BROOKS [facility], [address], [place] [address] Business (1) Comments: Call for followup appointment re: the indwelling Robles catheter. Type Location Start Finish [facility] URO Office Visit [facility] WILL Silva 11/22/2023 1:00 PM 11/22/2023 1:15 PM Confirmed Patient Education Information: CV - Cardiovascular Discharge Instructions (Custom) [facility] Inpatient Patient Summaryon 07-06-2023 Inpatient Patient Summary [place] [id number] Patient Discharge Instructions PERSON INFORMATION Name: ASYA ASENCIO I Date of : 1950 Current Date: 07/06/2023 14:19:57 PHYSICIANS Admitting Physician: Noman PATTON DO Primary Care Physician: Peggy Nazario MD PCP Comment: Discharge Diagnosis: 1:Atrial fibrillation with RVR; 2:Acute systolic congestive heart failure; 3:Severe mitral regurgitation; 4:Elevated troponin; 5:Mild coronary artery disease; 6:anxiety; 7:Pleural effusion; 8:Urinary hesitancy; 9:Other urethral stricture, female; 11:Constipation; 12:On deep vein thrombosis (DVT) prophylaxis Condition at Discharge: Improved ASYA ASENCIO I has been given the following list of follow-up instructions, prescriptions, and patient education materials: PATIENT FOLLOW-UP INFORMATION Diet: Fat Modified- Low cholesterol, Low Sodium- 2000 mg, Other: 1800 mils per day fluid restriction Discharge Activity: Ambulate as tolerated, Activity as tolerated Discharge Restrictions: Wound Care Instructions: Remove Your Dressing In Days Call Your Doctor For: IF UNABLE TO CONTACT YOUR PHYSICIAN AND YOU FEEL IT IS AN EMERGENCY, GO TO THE NEAREST EMERGENCY ROOM OR CALL 911 Home Treatment: Devices/Equipment: None Special Services: Additional Instructions: Primary Care Physician to provide the following pending test results: Follow up: With: Address: When: Johan HENRIQUEZ [address] [place] [phone] Business (1) Within 2 weeks Comments: Call for followup appointment With: Address: When: Peggy [place] [address] Business (1) 07/10/2023 1:00 PM With: Address: When: Micheline BROOKS [facility], [address], [place] [address] Business (1) Comments: Call for followup appointment re: the indwelling Robles catheter. In the event that this physician does not participate in your insurance network, please consult with your insurance company to find a nearby participating provider. Type Location Start [facility] URO Office Visit [facility] WILL Silva 11/22/2023 1:00 PM 11/22/2023 1:15 PM Confirmed Comment: ELIF Ruiz JOYCE I, have received the attached patient education materials/instruction s and have verbalized understanding: Patient Signature Date Clinican/Nurse Signature Date HERE ARE THE MEDICATION CHANGES THAT OCCURRED DURING YOUR HOSPITAL STAY New Medications [id number], [address] [facility], [place] [id number], [phone] apixaban (Eliquis 5 mg oral tablet) 1 Tablets By Mouth 2 times a day. Refills: 0. Last Dose: ____Next Dose: ____ aspirin (aspirin 81 mg Oral EC Tab) 1 Tablets By Mouth every day. Refills: 0. Last Dose: ____Next Dose: ____ atorvastatin (Lipitor 40 mg Tab) 1 Tablets By Mouth at bedtime. Refills: 0. Last Dose: ____Next Dose: ____ carvedilol (carvedilol 3.125 mg Tab) 1 Tablets By Mouth 2 times a day. Refills: 0. Last Dose: ____Next Dose: ____ digoxin (digoxin 125 mcg (0.125 mg) Tab) 1 Tablets By Mouth every day. Refills: 0. Last Dose: ____Next Dose: ____ furosemide (furosemide 40 mg Tab) 1 Tablets By Mouth every day. Refills: 0. Last Dose: ____Next Dose: ____ losartan (losartan 25 mg Tab) 1 Tablets By Mouth every day. Refills: 0. Last Dose: ____Next Dose: ____ polyethylene glycol 3350 (polyethylene glycol 3350 17 gram packet) 17 Gram By Mouth every day. Refills: 0. Last Dose: ____Next Dose: ____ Medications to Continue with No Changes Other Medications estradiol topical (Estrace 0.1 mg/g Cream) 0.5 Gram Vaginal Monday & Monday. Refills: 6. Last Dose: ____Next Dose: ____ lorazepam (Ativan 0.5 mg Tab) 1 Tablets By Mouth 3 times a day as needed as needed for anxiety. Last Dose: ____Next Dose: ____ ondansetron (Zofran ODT 4 mg Tab-Dis) 1 Tablets By Mouth every 8 hours. Refills: 0. Last Dose: ____Next Dose: ____ No Longer Take the Following Medications ciprofloxacin (Cipro 500 mg Tab) 1 Tablets By Mouth As Directed. Patient to take 1 tab the day before procedure and the 2nd tab the day of procedure once completed. Refills: 0. dicyclomine (Bentyl 10 mg Cap) 1 Capsules By Mouth 4 times a day for 7 Days. Refills: 0. Comment: MEDICATION LIST PROVIDED FOR YOU IS A LIST OF YOUR CURRENT MEDICATIONS. PLEASE CARRY THIS WITH YOU AT ALL TIMES. apixaban (Eliquis 5 mg oral tablet) 1 Tablets By Mouth 2 times a day. Refills (more content not included)... Normal [facility] Interdisciplinary Note - Tico e Manageron 07-06-2023 Interdisciplinary Note - Explosive Ordnance Disposal Technician Pt is awake and alert in bed, previously rounded with Dr. Serrato. Await cardiology to see and anticipate DC home later today. Declines any concerrns or DC needs. Brilinta was priced out yesterday $183 and coupon provided. . PCP verified and insurance information reviewed and DME discussed. Contact information provided and white board updated. Normal [facility] Comment on above: Result Comment: Elec tronically Signed By: Martín ALFORD, Radha\.zak\Date and Time Signed: 07/06/23 12:06 EST Monitor Recordon 07-06-2023 Monitor Record [id number]# 1.00TIFF Normal [facility] Monitor Record [id number]# 1.00TIFF Normal [facility] Monitor Record [id number]# 1.00TIFF Normal [facility] Progress Note-Physicianon Progress Note-Physician Assessment/Plan 73-year-old female with history of ureteral stricture with previous dilations, anxiety disorder presented with complaints of urinary hesitancy, constipation, cough and shortness of breath and was admitted to [facility] with acute paroxysmal atrial fibrillation with rapid ventricular response, acute systolic congestive heart failure, elevated troponin, urinary retention/hesitancy requiring Robles catheter placement. She was also found to have mild coronary artery disease, severe mitral regurgitation/tricusp id regurgitation. 1. Atrial fibrillation with RVR (I48.91: Unspecified atrial fibrillation) Acute new onset paroxysmal atrial fibrillation with rapid ventricular response?present on admission. Fluctuating. Treated intermittently with IV Cardizem drip. Continue on Coreg, digoxin. Morale Officer debating on starting patient on amiodarone. Eliquis to start in 4 days after cardiac catheterization. Ordered: [facility] Hospital Care/Day Moderate 35 Minutes 28827 2. Acute systolic congestive heart failure (I50.21: Acute systolic (congestive) heart failure) Acute systolic congestive heart failure?present on admission. Seen by scientist electronics and underwent cardiac catheterization that showed mild coronary artery disease. Also shows severe mitral regurgitation and tricuspid regurgitation with ejection fraction of 30 to 35%. Continue on aspirin, Coreg, losartan and Lasix. Ordered: [facility] Hospital Care/Day Moderate 35 Minutes 74702 3. Severe mitral regurgitation (I34.0: Nonrheumatic mitral (valve) insufficiency) As seen on cardiac catheterization. Patient will follow-up with scientist electronics for HAROON and then valvular repair. Morale Officer also considering transferring patient to or [facility]. Ordered: [facility] Hospital Care/Day Moderate 35 Minutes 14747 4. Elevated troponin (R79.89: Other specified abnormal findings of blood chemistry) Secondary to type II non-ST segment elevation myocardial infarction from above and mild coronary artery disease.. Seen by scientist electronics and underwent cardiac catheterization that showed mild coronary artery disease. Continue on aspirin, Lipitor, and Coreg. Ordered: [facility] Hospital Care/Day Moderate 35 Minutes 58584 5. Mild coronary artery disease (I25.10: Atherosclerotic heart disease of chicken ranch coronary artery without angina pectoris) As seen on cardiac catheterization on 07/05/2023. Continue on Lipitor and aspirin. Ordered: [facility] Hospital Care/Day Moderate 35 Minutes 93849 6. anxiety (F41.9: Anxiety disorder, unspecified) Increase Ativan to 4 times daily as needed. 7. Pleural effusion (J90: Pleural effusion, not elsewhere classified) Small pleural effusion?secondary to acute systolic congestive heart failure. Continue on Lasix. 8. Urinary hesitancy (R39.11: Hesitancy of micturition) Secondary to urethral stricture and urinary retention. Seen by urologist and Robles catheter was placed. She will follow-up with urologist with Robles catheter and leg bag. 9. Other urethral stricture, female (N35.82: Other urethral stricture, female) Present on admission?resulting in urinary retention and hesitancy. She is status post Robles catheter. She will follow-up with urologist as outpatient for dilation. 10. Urinary retention (R33.9: Retention of urine, unspecified) Seen by urologist. Status post Robles catheter placement. Follow-up with urologist as outpatient. 11. Constipation (K59.00: Constipation, unspecified) Resolved. Discontinue MiraLAX. 12. On deep vein thrombosis (DVT) prophylaxis (Z79.899: Other rat exterminator (current) drug therapy) SCDs. Eliquis to resume in 4 days. Disposition: Home soon today if heart rate is under good control with plans to follow-up with scientist electronics and urologist as outpatient. However if heart rate is still elevated then we will call [facility] or [facility] to see if we can transfer patient for valve repair/replacement. I discussed the diagnosis and plan of care with the patient at the bedside. Moderate level of MDM based on addressing above issues. This documentation was transcribed using voice recognition software. Several attempts were made to ensure accuracy. However inadvertent computerized business process engineer errors may be present. Nahid Serrato. Hospitalist. [...] EST Basic Metabolic Panel Basic Metabolic Panel eGF (more content not included)... Normal [facility] Comment on above: Result Comment: Elec tronically Signed By: JAZMÍN MCMAHON, Nahid\.br\Date and Time Signed: 07/06/23 11:56 EST Progress Note-Physician Subjective Patient very weepy this morning, very anxious about her cardiac condition and going home to cook for herself. She claims that she will become so anxious that she is paralyzed from being able to take care of herself or cook. She does not drive and is unsure how she is going to get to the [facility] or [facility] for mitral valve/tricuspid valve surgery. Despite all this the patient did well overnight. Telemetry showed atrial fibrillation with controlled ventricular response currently on low-dose Cardizem drip. Review of Systems Constitutional: no fever, no chills, no weakness, no fatigue Respiratory: no shortness of breath, no cough, no orthopnea, no wheezing Cardiovascular: no chest pain, no palpitations, no edema Neuro: no dizziness no light headed no syncope Additional ROS info: Except as noted in the above Review of Systems and in the History of Present Illness all other systems have been reviewed and are negative or noncontributory. Objective Vitals & Measurements T: 36.5 ?C(Oral) TMIN: 36.5 ?C(Oral) TMAX: 36.9 ?C(Axillary) HR: 77(Monitored) BP: 97/60 SpO2: 93% WT: 59.7 kg Intake & Output This visit (24 hour periods starting at 07:00 EST) 07/06/23 * 07/05/23 07/04/23 Total Summary Intake mL -- 91.5 -- Output mL -- 750 500 Fluid Balance -- -658.5 -500 Intake (3) Sodium Chloride 0.9% intravenous solution 1,000 mL mL -- 3.16 -- diltiazem 100 mg [5 mg/hr] + Sodium Chloride 0.9% intravenous solution 100 mL mL -- 58.34 -- lactulose mL -- 30 -- Total -- 91.5 -- Output (1) Urine Catheter mL -- 750 500 Total -- 750 500 Counts (1) Stool Count -- 1 -- * This column has not completed the indicated time period. Physical Exam General: alert, no acute distress Neck: Supple, noJVD nocarotid bruit Cardiovascular: irregularly-irregular rate and rhythm, systolic murmur normal peripheral perfusion Respiratory: Lungs CTA, respirations non labored Extremities: no edema Neurological: oriented x 4, LOC appropriate for age, sensation equal & normal bilaterally, speech normal Skin: Warm, dry, intact- no rash or concerning lesions Lab Results Glucose Lvl: 91 mg/dL (07/06/23 06:23:00) BUN: 12 mg/dL (07/06/23 06:23:00) Creatinine: 0.7 mg/dL (07/06/23 06:23:00) eGFR: 90 mL/min/1.73 m2 (07/06/23 06:23:00) BUN/Creat Ratio: 17 (07/06/23 06:23:00) Sodium Lvl: 138 mmol/L (07/06/23 06:23:00) Potassium Lvl: 3.9 mmol/L (07/06/23 06:23:00) Chloride: 109 mmol/L (07/06/23 06:23:00) CO2: 28 mmol/L (07/06/23 06:23:00) AGAP: 5 mEq/L Low (07/06/23 06:23:00) Calcium Lvl: 8 mg/dL Low (07/06/23 06:23:00) Assessment/Plan 1. Atrial fibrillation with RVR (I48.91: Unspecified [...] to transfer the patient directly to the [facility] or [facility] given her logistic challenges with getting [...] artery disease (I25.10: Atherosclerotic heart disease of chicken ranch coronary artery without angina pectoris) 6. Pleural effusion (J90: Pleural effusion, not elsewhere classified) 7. Urinary hesitancy (R39.11: Hesitancy of micturition) 8. Other urethral stricture, female (N35.82: Oth (more content not included)... Normal [facility] Comment on above: Result Comment: Elec tronically Signed By: MARTINEZ MCMAHON, Johan Ribeiro.br\Date and Time Signed: 07/06/23 09:22 EST eGFRon 07-06-2023 GFR/1.73 sq M.predicted among non-blacks MDRD (S/P/Bld) [Vol rate/Area] 90 mL/min/1.73 m2 Normal >=59 [facility] Comment on above: Order Comment: Order Added by Discern Expert. Result Comment: Varnish Finisher luis kidney disease could be indicated at eGFR's of less than 60 mL/min/1.73m2. Kidney failure is indicated at less than 15 mL/min/1.73m2. Performed By: #### 2 [id number], [id number], [id number], [id number], [id number] #### [facility] [address] [place] [address] BMPon 07-05-2023 Anion gap [Moles/Vol] 9 mmol/L Normal 6-16 [facility] Comment on above: Performed By: #### 1 [id number], [id number] ####[facility] [address] [place] [address] Calcium [Mass/Vol] 8.2 mg/dL Low 8.9-11.1 [facility] Comment on above: Performed By: #### 1 [id number], [id number] ####[facility] [address] [place] [address] Chloride [Moles/Vol] 105 mmol/L Normal 101-111 [facility] Comment on above: Performed By: #### 1 [id number], [id number] ####[facility] [address] [place] [address] CO2 [Moles/Vol] 27 mmol/L Normal 21-31 [facility] Comment on above: Performed By: #### 1 [id number], [id number] ####[facility] [address] [place] [address] Creatinine [Mass/Vol] 0.7 mg/dL Normal 0.5-1.3 [facility] Comment on above: Performed By: #### 1 [id number], [id number] ####[facility] [address] [place] [address] Glucose [Mass/Vol] 115 mg/dL Normal 55-199 [facility] Comment on above: Result Comment: If t his glucose result represents a fasting glucose, interpretation should refer to the following reference range: 55-99 mg/dL Performed By: #### 1 [id number], [id number] ####[facility] [address] [place] [address] Potassium [Moles/Vol] 4.3 mmol/L Normal 3.5-5.3 [facility] Comment on above: Performed By: #### 1 [id number], [id number] ####[facility] [address] [place] [address] Sodium [Moles/Vol] 137 mmol/L Normal 135-145 [facility] Comment on above: Performed By: #### 1 [id number], [id number] ####[facility] [address] [place] [address] Urea nitrogen [Mass/Vol] 13 mg/dL Normal 5-21 [facility] Comment on above: Performed By: #### 1 [id number], [id number] ####[facility] [address] [place] [address] Urea nitrogen/Creatinine [Mass ratio] 19 No Units Normal 10-20 [facility] Comment on above: Performed By: #### 1 [id number], [id number] ####[facility] [address] [facility] [place] [address] CHEMISTRYOrdered By: SYSTEM SYSTEM on 07-05-2023 Anion gap [Moles/Vol] 9 mmol/L Normal 6 - 16 mEq/L [facility] Remisol Calcium [Mass/Vol] 8.2 mg/dL Low 8.9 - 11. 1 mg/dL [facility] Remisol Chloride [Moles/Vol] 105 mmol/L Normal 101 - 1 11 mmol/L [facility] Remisol CO2 [Moles/Vol] 27 mmol/L Normal 21 - 31 mmol/L [facility] Remisol Creatinine [Mass/Vol] 0.7 mg/dL Normal 0.5 - 1.3 mg/dL [facility] Remisol GFR/1.73 sq M.predicted among non-blacks MDRD (S/P/Bld) [Vol rate/Area] 90 mL/min/1.73 m2 Normal >=59mL/min/1 .73 m2 [facility] Chem S Comment on above: Interpretive Data: C hronic kidney disease could be indicated at eGFR's of less than 60 mL/min/1.73m2. Kidney failure is indicated at less than 15 mL/min/1.73m2. Glucose [Mass/Vol] 115 mg/dL Normal 55 - 199 mg/dL [facility] Comment on above: Interpretive Data: I f this glucose result represents a fasting glucose, interpretation should refer to the following reference range: 55-99 mg/dL Potassium [Moles/Vol] 4.3 mmol/L Normal 3.5 - 5.3 mmol/L [facility] Remisol Sodium [Moles/Vol] 137 mmol/L Normal 135 - 145 mmol/L [facility] Remisol Urea nitrogen [Mass/Vol] 13 mg/dL Normal 5 - 21 mg/dL [facility] Remisol Urea nitrogen/Creatinine [Mass ratio] 19 mg/mg Normal 10 - 20 [facility] Remisol CHEMISTRYOrdered By: Lab ROP User on 07-05-2023 Glucose [Mass/Vol] 79 mg/dL Normal 55 - 99 mg/dL [facility] POC Subsection Comment on above: Result Comment: Neli cain RN/ POC Username NIKHIL PAULSON Invalid Interpretation Code [facility] POC Subsection Sodium [Moles/Vol] [id number] mmol/L Invalid Interpretation Code [facility] POC Subsection Sodium [Moles/Vol] [id number] mmol/L Invalid Interpretation Code [facility] POC Subsection Capillary Glucose POCon 06-15 Glucose [Mass/Vol] 79 mg/dL Normal 55-99 [facility] Comment on above: Result Comment: Neli cain RN/ Performed By: #### 1 [id number] #### [facility] [address] [place] [address] Cardiovascular Reporton 06-15 Cardiovascular Report [id number]# 1.00TIFF Normal [facility] Monitor Recordon 07-05-2023 Monitor Record [id number]# 1.00TIFF Normal [facility] Monitor Record [id number]# 1.00TIFF Normal [facility] Monitor Record [id number]# 1.00TIFF Normal [facility] Monitor Record [id number]# 1.00TIFF Normal [facility] Monitor Record [id number]# 1.00TIFF Normal [facility] Operative Reporton Operative Report SURGERY DATE: 07/05/2023 PREOPERATIVE DIAGNOSIS: Atrial fibrillation, severe left ventricular dysfunction, severe mitral regurgitation and moderate to severe tricuspid regurgitation and congestive heart failure presentation POSTOPERATIVE DIAGNOSIS: 1. Nonobstructive coronary disease of the left anterior descending, severe left ventricular dysfunction with an ejection fraction around 25-30%, severe mitral regurgitation with elevated V wave with wedge pressure tracing, mild pulmonary hypertension with PA pressures in the mid-40s 2. Normal left ventricular end diastolic pressure OPERATION: Left heart catheterization, right heart catheterization, left ventricular angiogram I.V. CONTRAST DYE: 53 cc SEDATION: 1 mg of Versed COMPLICATIONS: None HISTORY OF PRESENT ILLNESS:The patient is a very pleasant 73 year old female, who was originally admitted for urinary retention and was found to be in atrial fibrillation with rapid ventricular response. Cardiac consultation was obtained and the patient was found to have severe left ventricular dysfunction by echocardiogram with an ejection fraction of 30-35%, mildly dilated left ventricle, normal right ventricle with moderate to severe mitral regurgitation and severe tricuspid regurgitation with mild pulmonary hypertension and atrial fibrillation. Given the patient's atrial fibrillation, severe left ventricular dysfunction and mitral regurgitation she was referred for left and right heart catheterization to evaluate her coronary anatomy for possible mitral valve repair. The risk and benefits of the procedure were thoroughly explained to the patient including specific attention to lack of onsite surgical backup and informed written consent was obtained. PROCEDURE: The patient was brought to the Catheterization Laboratory in the fasting state and prepped and draped in the usual sterile fashion. Under fluoroscopic guidance the right femoral artery and right femoral vein were anesthetized with 1% lidocaine. Next the right femoral artery was accessed with a single anterior stick of a Cook needle followed by placement of an exchange length J-wire. Next a 4 Burundian sheath was placed without complications and flushed with heparinized saline. Next the right femoral vein was accessed with a single anterior stick of a Cook needle followed by placement of a short J-wire under fluoroscopic guidance. Next a 7 Burundian sheath was placed without complications and flushed with heparinized saline. Next a balloon tip Page-Lois catheter was advanced under fluoroscopic guidance into the right atrium and the right heart pressures were recorded as follows: Right atrium: 7/8 with a mean of 6. Right ventricle: 34/0 with a RVEDP of 4. Pulmonary artery pressure was 39/16 with a mean of 24. Pulmonary wedge was 23/27 with a mean of 20 with a significant V wave due to the severe mitral regurgitation. Cardiac output by [place] was 3.3, cardiac output by thermal was 2.57. Next a 4 Burundian angled pigtail catheter was easily advanced into the left ventricular chamber. AO saturation was 84%. PA saturation was 46%. Simultaneous LV and wedge pressure demonstrated a large V wave indicating severe mitral regurgitation. Simultaneous LV and RV pressures demonstrated no overt evidence of pericardial constriction although the patient is in atrial fibrillation making that somewhat problematic. Page-Lois catheter was then removed. The LV angiogram performed in the 30 degree right anterior oblique position demonstrated severe global LV dysfunction with an ejection fraction around 25-30%. There was severe mitral regurgitation which completely filled the left atrium after the second beat. There was no significant gradient seen on pullback. Next the pigtail catheter was exchanged over a wire for a 4 Burundian JL5 catheter. This was easily engaged into the left main coronary artery. There was no dampening or ventricularization noted. RESULTS: Left main: The left main is a moderate vessel which bifurcates into a left anterior descending and a left circumflex. There are no significant lesions seen in the left main. Left anterior descending: The left anterior descending appears to have an ostial 50-60% stenosis but this does not appear to be flow limiting. The remainder of the left anterior descending is angiographically normal. Diagonal #1: Diagonal #1 is a small vessel which is angiographically normal. Left circumflex: Left circumflex is a moderate size nondominant vessel which bifurcates into an OM#1 and OM#2. The left circumflex is angiographically normal. OM#1: OM#1 is a small to moderate vessel which is angiographically normal. OM#2: OM#2 is a moderate size vessel which is angiographically normal. The JL5 catheter was exchanged over a wire for a 4 Burundian 3DRC catheter. This was easily engaged into the right coronary artery. There was no dampening or ventricularization upon engagement. Right coronary artery: The right coronary artery is a moderate size dominant vesse (more content not included)... Normal [facility] Comment on above: Result Comment: Elec tronically Signed By: MARTINEZ MCMAHON, Johan Patino\.br\Date and Time Signed: 07/05/23 11:46 EST Progress Note-Nurseon 2022 Progress Note-Nurse skilled laborer made aware patient last dose of lovenox was given on 07/04/23 @ 8805. Normal [facility] Progress Note-Physicianon Progress Note-Physician Assessment/Plan 73-year-old female with history of ureteral stricture with previous dilations, anxiety disorder presented with complaints of urinary hesitancy, constipation, cough and shortness of breath and was admitted to [facility] with acute paroxysmal atrial fibrillation with rapid ventricular response, acute systolic congestive heart failure, elevated troponin, urinary retention/hesitancy requiring Robles catheter placement. She was also found to have mild coronary artery disease, severe mitral regurgitation/tricusp id regurgitation. 1. Atrial fibrillation with RVR (I48.91: Unspecified atrial fibrillation) Acute new onset paroxysmal atrial fibrillation with rapid ventricular response?present on admission. Rate controlled. Treated with IV Cardizem drip, digoxin. Was treated with Lovenox during this admission. Temporarily on hold after cardiac catheterization. Plan is for patient to start Eliquis in 5 days post cardiac catheterization. Continue on Coreg. Ordered: furosemide, 40 mg = 1 tab(s), Tab, Oral, Daily, Routine, Start date 07/06/23 9:00:00 EST, 07/05/23 11:13:[address] [facility] Hospital Care/Day Moderate 35 Minutes 81327 2. Acute systolic congestive heart failure (I50.21: Acute systolic (congestive) heart failure) Acute systolic congestive heart failure?present on admission. Seen by scientist electronics. She is status post cardiac catheterization that showed mild coronary artery disease. Also showed severe mitral regurgitation and tricuspid regurgitation.. Ejection fraction of 30 to 35%. Continue on aspirin, Coreg, losartan, Lasix. Ordered: [facility] Hospital Care/Day Moderate 35 Minutes 30675 3. Severe mitral regurgitation (I34.0: Nonrheumatic mitral (valve) insufficiency) Severe mitral regurgitation?seen on cardiac catheterization. Follow-up with scientist electronics as outpatient for HAROON and then valvular repair. Ordered: [facility] Hospital Care/Day Moderate 35 Minutes 56075 4. Elevated troponin (R79.89: Other specified abnormal findings of blood chemistry) Secondary to type II non-ST segment elevation myocardial infarction from above and mild coronary artery disease.. Seen by scientist electronics and underwent cardiac catheterization that showed mild coronary artery disease. Continue on aspirin, Lipitor, and Coreg. Ordered: furosemide, 40 mg = 1 tab(s), Tab, Oral, Daily, Routine, Start date 07/06/23 9:00:00 EST, 07/05/23 11:13:[address] [facility] Hospital Care/Day Moderate 35 Minutes 67193 5. Mild coronary artery disease (I25.10: Atherosclerotic heart disease of chicken ranch coronary artery without angina pectoris) As seen on cardiac catheterization on 07/06/2023. Continue on Lipitor and aspirin. Ordered: [facility] Hospital Care/Day Moderate 35 Minutes 26220 6. Pleural effusion (J90: Pleural effusion, not elsewhere classified) Small pleural effusion?secondary to acute systolic congestive heart failure. Continue [...] (N35.82: Other urethral stricture, female) Present on admission?resulting in urinary retention and hesitancy. She is [...] deep vein thrombosis (DVT) prophylaxis (Z79.899: Other rat exterminator (current) drug therapy) Lovenox. Disposition: Home in a.m. to follow-up with scientist electronics and urologist. I discussed the diagnosis and plan of care with the patient at the bedside. Moderate level of MDM based on addressing above issues. This documentation was transcribed using voice recognition software. Several attempts were made to ensure accuracy. However inadvertent computerized business process engineer errors may be present. Nahid Serrato. Hospitalist. Orders: Basic Metabolic Panel Basic Metabolic Panel Referral to Resource Center Subjective Seen and examined. Offers no complaints today. Completed cardiac catheterization today. Offers no new complaints. Objective Vitals & Measurements T: 36.7 ?C(Axillary) TMIN: 36.5 ?C(Oral) TMAX: 36.9 ?C(Axillary) HR: 89(Monitored) BP: 102/64 SpO2: 97% HT: 165.10 cm WT: 58.4 kg Intake & Output This (more content not included)... Normal [facility] Comment on above: Result Comment: Elec tronically Signed By: JAZMÍN MCMAHON, Nahid\.br\Date and Time Signed: 07/05/23 11:19 EST eGFRon 07-05-2023 GFR/1.73 sq M.predicted among non-blacks MDRD (S/P/Bld) [Vol rate/Area] 90 mL/min/1.73 m2 Normal >=59 [facility] Comment on above: Order Comment: Order added by Discern Expert. Result Comment: Varnish Finisher luis kidney disease could be indicated at eGFR's of less than 60 mL/min/1.73m2. Kidney failure is indicated at less than 15 mL/min/1.73m2. Performed By: #### 1 [id number] ####[facility] [id number] [place] [address] Monitor Recordon 07-04-2023 Monitor Record [id number]# 1.00TIFF Normal [facility] Monitor Record [id number]# 1.00TIFF Normal [facility] Monitor Record [id number]# 1.00TIFF Normal [facility] Monitor Record [id number]# 1.00TIFF Normal [facility] Patient Education - Texton 1 09-03-2022 Patient Education - Text Normal [facility] Progress Note-Physicianon Progress Note-Physician Assessment/Plan 73-year-old female with history of ureteral stricture with previous dilations, anxiety disorder presented with complaints of urinary hesitancy, constipation, cough and shortness of breath and was admitted to [facility] with acute paroxysmal atrial fibrillation with rapid ventricular response, acute systolic congestive heart failure, elevated troponin, urinary retention/hesitancy requiring Robles catheter placement. 1. Atrial fibrillation with RVR, (I48.91: Unspecified atrial fibrillation)New onset a-fib Acute paroxysmal atrial fibrillation with rapid ventricular response?present on admission. Cardiology consult reviewed by me. I appreciate and agreed recommendations. Treated with IV Cardizem. Echocardiogram done?shows ejection fraction of 30 to 35%. Patient was started on Lovenox with plans to switch to Eliquis. Patient was also started on Coreg and digoxin. Ordered: apixaban, 5 mg = 1 tab(s), Oral, BID, # 60 tab(s), Refills(s) 0, Pharmacy: [facility] #[id number], 165, cm, 07/02/23 21:30:00 EST, Height/Length Dosing, 55.7, kg, 07/02/23 21:30:00 EST, Weight Dosing Echo Transthoracic Complete [facility] Care/Day Moderate 35 Minutes 81659 2. Acute systolic congestive heart failure (I50.21: Acute systolic (congestive) heart failure) Acute systolic congestive heart failure?present on admission. Cardiology is following. Ejection fraction of 30 to 35%. Cardiology is planning on cardiac catheterization for ischemic work-up in AM. Meanwhile continue on aspirin, Coreg, losartan. We will verify with scientist electronics about Lasix. Ordered: [facility] Hospital Care/Day Moderate 35 Minutes 52196 3. Elevated troponin (R79.89: Other specified abnormal findings of blood chemistry) Secondary to type II non-ST segment elevation myocardial infarction from above. Echocardiogram shows ejection fraction of 30 to 35%. Morale Officer following with plans for cardiac catheterization in AM. Meanwhile continue on aspirin and Coreg. Ordered: Echo Transthoracic Complete [facility] Care/Day Moderate 35 Minutes 08402 4. Pleural effusion (J90: Pleural effusion, not elsewhere classified) Small pleural effusion?secondary to acute systolic congestive heart failure. Supportive care. Lasix as needed. Ordered: [facility] Hospital Care/Day Moderate 35 Minutes 44559 5. Urinary hesitancy (R39.11: Hesitancy of micturition) Secondary to urethral stricture and urinary retention. She is status post Robles catheter placement. Urology consult reviewed by me. I appreciate and agreed recommendations. Patient will discharge with Robles catheter and leg bag to follow-up with urologist as outpatient. Ordered: [facility] Hospital Care/Day Moderate 35 Minutes 23168 6. Other urethral stricture, female (N35.82: Other [...] Daily, NOW, Start date 07/03/23 11:16:[address] [facility] Hospital Care/Day Moderate 35 Minutes 46070 9. On deep vein thrombosis (DVT) prophylaxis (Z79.899: Other [facility] (current) drug therapy) Lovenox. Disposition: Pending cardiac catheterization in AM. I discussed the diagnosis and plan of care with the patient at the bedside. I also spoke with the patient's daughter Mandeep over the phone. Moderate level of MDM based on addressing above issues. This documentation was transcribed using voice recognition software. Several attempts were made to ensure accuracy. However inadvertent computerized business process engineer errors may be present. Nahid Serrato. Hospitalist. Orders: enoxaparin, 60 mg = 0.6 mL, Injection, SubCutaneous, q12hr for 30 day(s), Stop date 08/02/23 22:59:00 EST, Routine, Start date 07/03/23 23:00:00 EST Cardiac Diet Subjective Seen and examined. Offers no new complaints today. Denies any shortness of breath or chest pain. Objective Vitals & Measurements T: 36.4 ?C(Axillary) TMIN: 36.4 ?C(Axillary) TMAX: 37 ?C(Axillary) HR: 88(Monitored) BP: 111/67 SpO2: 94% WT: 57.4 kg Intake & Output This visit (24 hour periods starting at 07:00 EST) 07/04/23 * 07/03/23 07/02/23 Total Summary Intake mL -- 264.53 1,003 Output mL -- 525 1,000 Fluid Balance -- -260.47 3 Intake (5) Sodium Chloride 0.9% mL -- -- 1,000 Sodium Chloride 0.9% intravenous solution 1,000 mL mL -- 176.8 (more content not included)... Normal [facility] Comment on above: Result Comment: Elec tronically Signed By: JAZMÍN MCMAHON, Mbanefo\.br\Date and Time Signed: 07/04/23 10:53 EST Progress Note-Physician Subjective Patient doing well this morning, denies any chest pain or angina. He is vaguely aware that she is in atrial fibrillation with intermittent palpitations but is unknown how long she has been in atrial fibrillation. Telemetry showed atrial fibrillation with controlled ventricular response and 5 beat run of wide-complex tachycardia which was self terminating. Patient currently on low-dose Cardizem drip. Review of Systems Constitutional: no fever, no chills, no weakness, no fatigue Respiratory: no shortness of breath, no cough, no orthopnea, no wheezing Cardiovascular: no chest pain, no palpitations, no edema Neuro: no dizziness no light headed no syncope Additional ROS info: Except as noted in the above Review of Systems and in the History of Present Illness all other systems have been reviewed and are negative or noncontributory. Objective Vitals & Measurements T: 36.4 ?C(Axillary) TMIN: 36.4 ?C(Axillary) TMAX: 37 ?C(Axillary) HR: 88(Monitored) BP: 111/67 SpO2: 92% WT: 57.4 kg Intake & Output This visit (24 hour periods starting at 07:00 EST) 07/04/23 * 07/03/23 07/02/23 Total Summary Intake mL -- 264.53 1,003 Output mL -- 525 1,000 Fluid Balance -- -260.47 3 Intake (5) Sodium Chloride 0.9% mL -- -- 1,000 Sodium Chloride 0.9% intravenous solution 1,000 mL mL -- 176.84 -- diltiazem mL -- -- 3 diltiazem 100 mg [5 mg/hr] + Sodium Chloride 0.9% intravenous solution 100 mL mL -- 57.69 -- lactulose mL -- 30 -- Total -- 264.53 1,003 Output (2) Urine Catheter mL -- 525 900 Urine Output Initial mL -- -- 100 Total -- 525 1,000 Counts (0) * This column has not completed the indicated time period. Physical Exam General: alert, no acute distress Neck: Supple, noJVD nocarotid bruit Cardiovascular: irregularly-irregular rate and rhythm, no murmur normal peripheral perfusion Respiratory: Lungs CTA, respirations non labored Extremities: no edema Neurological: oriented x 4, LOC appropriate for age, sensation equal & normal bilaterally, speech normal Skin: Warm, dry, intact- no rash or concerning lesions Lab Results No qualifying data available. Diagnostic Results (07/03/2023 13:36 EST Echo Transthoracic Complete) Ejection Fraction = 30-35%. Mildly dilated LV with moderate LV systolic dysfunction. Normal RV. Mod-sev MR and sev TR. Mild PA hypertension. Afib. No comparison. [1] Assessment/Plan 1. Atrial fibrillation with RVR, (I48.91: Unspecified [...] deep vein thrombosis (DVT) prophylaxis (Z79.899: Other rat exterminator (current) drug therapy) Urinary retention (R33.9: Retention of urine, unspecified) Problem List/Past Medical History Ongoing acid reflux Acute gastroenteritis anxiety Atrophic vaginitis Cystocele with prolapse Dysuria Feeling of incomplete bladder emptying Former smoker History of urethral stricture Injury of nose Nocturia Other urethral stricture, female Poor urinary stream Renal lesion Stranguria Superficial laceration of face Suprapubic pain Urinary frequency Urinary hesitancy Urinary urgency Weak urine stream Historical No qualifying data Medications Inpatient acetaminophen 325 mg Tab, 650 mg= 2 tab(s), Oral, q6hr, PRN aspirin 81 mg Oral EC Tab, 81 mg= 1 tab(s), Oral, Daily Ativan 0.5 mg Tab, 0.5 mg= 1 tab(s), Oral, TID, PRN Benadryl 25 mg Cap, 25 mg= 1 cap(s), Oral, q6hr, PRN carvedilol 3.125 mg Tab, 3.125 mg= 1 tab(s), Oral, BID diltiazem additive 100 mg [5 mg/hr] + Sodium Chloride 0.9% intravenous solution 100 mL DuoNeb 2.5 mg-0.5 mg/3 mL Soln-Inh, 3 mL, Inhalation, QID, PRN f (more content not included)... Normal [facility] Comment on above: Result Comment: Elec tronically Signed By: MARTINEZ MCMAHON, Johan Patino\.br\Date and Time Signed: 07/04/23 08:04 EST CHEMISTRYOrdered By: SYSTEM SYSTEM on 07-03-2023 Cholesterol [Mass/Vol] 145 mg/dL Normal 120 - 200 mg/dL [facility] Remisol Cholesterol in HDL [Mass/Vol] 43 mg/dL Invalid Interpretation Code [facility] Remisol Comment on above: Interpretive Data: H DL > or equal to 60 mg/dL: Low cardiovascular risk HDL < 40 mg/dL : High cardiovascular risk Cholesterol in LDL [Mass/Vol] 99 mg/dL Normal <=129mg/dL [facility] Remisol Cholesterol in VLDL [Mass/Vol] 17 mg/dL Normal 7 - 40 mg/dL [facility] Remisol Triglyceride [Mass/Vol] 85 mg/dL Normal <=149mg/dL [facility] Remisol Troponin I.cardiac [Mass/Vol] 27.10 pg/mL Normal 10.10 - 27.10 pg/mL [facility] Remisol Comment on above: Interpretive Data: T he 95% CI (Confidence Interval) PPV (Positive Predictive Value) for myocardial infarction in females is 38 pg/mL, in males 51 pg/mL. The results should be used in conjunction with clinical conditions of myocardial infarction. (Access High Sensitivity Troponin I Instructions For Use, Marlys Walkerton, March 2018) TSH Qn 3.83 m[IU]/L Normal 0.34 - 5.60 mcIU/mL [facility] Remisol CHEMISTRYOrdered By: Dulce Maria Correa on 07-03-2023 HbA1c (Bld) [Mass fraction] 5.5 % Normal <=5.9% [facility] ChemAutoSS Consultation Noteon 07-03-20 Consultation Note Patient: ASYA ASENCIO I Age: 73 years Sex: Female : 1950 Associated Diagnoses: None Author: Cody LEO MD Chief Complaint For consultation on this 73-year-old white female who is well-known to Dr. Brooks. We last performed urethral dilatation in May 2023 with a prior dilatation in October 2022. She has a fairly tight stenosis and the patient states that she did not get as much relief after the second dilatation as compared to the first. She was doing fairly well but over the past several weeks has had progressive difficulties. Over the past couple days she has had progressive difficulties urinating and earlier today actually felt that she could not get any urine out although she was drinking a fair amount of fluid. She does have some anxiety disorder and everything was exacerbated. She subsequently states she had a panic attack. When she came to the ER she states she had palpable urinary retention essentially but once the Robles catheter was placed there was documented avoiding 100 cc. The patient states this was much more. I do not find that documented as to the exact volume other than in the ER physician's note. Robles catheter was placed and she had relief of the obstruction symptoms. Catheter is burning her somewhat. No gross hematuria. She is asking about plans further urologic plans at this point I did review laboratory data revealing a creatinine of 1.0 and GFR of 59. No obvious evidence of urinary tract infection. She was also found to have atrial fibrillation with rapid ventricular response. Urologic consultation obtained. The entire past medical history, past surgical history, systems review, family history, social history, medications, and allergies are as noted in the admission history and physical performed by Dr. Chaney earlier today and is unchanged. Health Status Allergies: Allergic Reactions (Selected) Severity Not Documented Demerol HCl- Syncope. Eggs- Unknown. Keflex- Nausea and vomiting. Morphine- Unknown cause. Sulfa drugs- Nausea. Nonallergic Reactions (Selected) Severity Not Documented Meperidine- Aof. Current medications: (Selected) Prescriptions Prescribed Bentyl 10 mg Cap: 10 mg = 1 cap(s), Oral, QID, X 7 day(s), # 14 cap(s), Refills(s) 0, Pharmacy: [facility] #[id number], 165, cm, 06/30/23 19:37:00 EST, Height/Length Dosing, 55.7, kg, 06/30/23 19:37:00 EST, Weight Dosing Cipro 500 mg Tab: 500 mg = 1 tab(s), Oral, As Directed, Patient to take 1 tab the day before procedure and the 2nd tab the day of procedure once completed, # 2 tab(s), Refills(s) 0, Pharmacy: [facility] #[id number], 165, cm, 04/26/23 15:23:00 EDT, Height/Length Do... Estrace 0.1 mg/g Cream: 0.5 gm, Vaginal, MonFri, 42.5 gm, Refill(s) 6 Zofran ODT 4 mg Tab-Dis: 4 mg = 1 tab(s), Oral, q8hr, # 12 tab(s), Refills(s) 0, Pharmacy: [facility] #[id number], 165, cm, 06/30/23 19:37:00 EST, Height/Length Dosing, 55.7, kg, 06/30/23 19:37:00 EST, Weight Dosing Documented Medications Documented Ativan 0.5 mg Tab: 0.5 mg = 1 tab(s), Oral, TID, PRN as needed for anxiety, Refills(s) 0 Problem list: All Problems acid reflux / SNOMED CT 044192061 / Confirmed anxiety / SNOMED CT 27240977 / Confirmed Injury of nose / SNOMED CT 89977431 / Confirmed Superficial laceration of face / SNOMED CT 422560265 / Confirmed Acute gastroenteritis / SNOMED CT 344879346 / Confirmed Other urethral stricture, female / SNOMED CT 207863357 / Confirmed Nocturia / SNOMED CT 056034686 / Confirmed Urinary hesitancy / SNOMED CT 040503168 / Confirmed Former smoker / SNOMED CT 96221106 / Confirmed Urinary frequency / SNOMED CT 162236911 / Confirmed Feeling of incomplete bladder emptying / SNOMED CT 394413507 / Confirmed Urinary urgency / SNOMED CT 351301608 / Confirmed Dysuria / SNOMED CT 95558217 / Confirmed Suprapubic pain / SNOMED CT 356971492 / Confirmed Poor urinary stream / SNOMED CT 355889221 / Confirmed Cystocele with prolapse / SNOMED CT 959111397 / Confirmed Stranguria / SNOMED CT 993852088 / Confirmed History of urethral stricture / SNOMED CT 338572090 / Confirmed Weak urine stream / SNOMED CT 247002213 / Confirmed Atrophic vaginitis / SNOMED CT 26266050 / Confirmed Renal lesion / SNOMED CT 3106713004 / Confirmed Histories Past Medical History: Active acid reflux (490470784) anxiety (67146709) Acute gastroenteritis (332740175) Family History: Heart disease Father Diabetes mellitus type 2 Mother Procedure history: Cystourethroscopy with dilation of urethral stricture (389620219) on 10/25/2022 at 72 Years. Cystoscopy/UD (56955701) on 02/23/2021 at 70 Years. Dilation of urethra (87152301) on 02/01/2019 at 68 Years. Cysto/ UD (899826989) on 10/10/2017 at 67 Years. Hysterectomy. colon resection. Corneal implant (975088548). Tonsillectomy (521793523). Dilation of urethra (65738571). Comments: 08/09/2019 13:23 EST - Darshan SALAS, Tim Velazco (more content not included)... Normal [facility] Comment on above: Result Comment: Elec tronically Signed By: DYLAN MCMAHON, Cody Maguire.zak\Date and Time Signed: 07/03/23 19:12 EST ED Clinical Summaryon 2022 ED Clinical Summary [place] [id number] ED Clinical Summary Person Information Name: ASYA ASENCIO I [facility] Age: 73 Years : 1950 Sex: Female Language: [place] PCP: Peggy Nazario MD Marital Status: Visit Id: Visit Reason: Genitourinary problem; 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 Speciality: Acuity: 3 Enc Type: Observation Med Service: Emergency Arrival: 07/02/2023 21:17:31 Discharge: LOS: 000 05:33 Checkin: 07/02/2023 21:17:31 Checkout: 07/03/2023 02:50:11 Dispo Type: Admitted as IP to this [facility] EVENTS: Event Name Event Status Request Date/Time Start Date/Time Complete Date/Time Arrive Complete 07/02/2023 21:17:31 07/02/2023 21:17:31 07/02/2023 21:17:31 Document Home Meds Request 07/02/2023 21:17:31 Triage Complete 07/02/2023 21:17:31 07/02/2023 21:30:55 07/02/2023 21:30:55 Isolation Screening Request 07/02/2023 21:30:56 Bed Assign Complete 07/02/2023 21:31:04 07/02/2023 21:31:04 07/02/2023 21:31:04 Dr Exam Complete 07/02/2023 21:31:04 07/02/2023 21:51:04 07/02/2023 21:51:04 RN Exam Complete 07/02/2023 21:31:04 07/02/2023 22:16:05 07/02/2023 22:16:05 Registration Complete 07/02/2023 21:51:04 07/02/2023 22:08:18 07/02/2023 22:08:18 Patient Care Request 07/02/2023 22:01:14 Patient Care Complete 07/02/2023 22:01:14 07/02/2023 22:22:12 Pending Labs Complete 07/02/2023 22:01:14 07/02/2023 22:30:13 Lab Complete 07/02/2023 22:01:14 07/02/2023 22:30:13 Pending Labs Complete 07/02/2023 22:01:15 07/02/2023 22:31:57 Lab Complete 07/02/2023 22:01:15 07/02/2023 22:31:57 Urine Collect Complete 07/02/2023 22:01:15 07/02/2023 22:31:57 Reg Complete Request 07/02/2023 22:08:18 Reg Bed Request Complete 07/02/2023 22:08:18 07/02/2023 22:08:18 07/02/2023 22:08:18 Pending Labs Complete 07/02/2023 22:14:18 07/02/2023 22:14:18 07/02/2023 22:30:14 Lab Complete 07/02/2023 22:14:18 07/02/2023 22:14:18 07/02/2023 22:30:14 Pending Labs Complete 07/02/2023 22:25:04 07/02/2023 22:25:04 07/02/2023 22:25:10 Lab Complete 07/02/2023 22:25:04 07/02/2023 22:25:04 07/02/2023 22:25:10 Meds Admin Complete 07/02/2023 22:33:45 07/02/2023 22:41:50 EKG Complete 07/02/2023 22:57:43 07/02/2023 23:04:51 Meds Admin Complete 07/02/2023 22:57:43 07/02/2023 23:22:05 Pending Labs Complete 07/02/2023 22:57:43 07/03/2023 02:48:39 Lab Cancel 07/02/2023 22:57:43 07/02/2023 23:03:14 Patient Care Request 07/02/2023 22:57:43 RT Request 07/02/2023 22:57:43 X-Ray Complete 07/02/2023 22:57:43 07/02/2023 23:02:49 07/02/2023 23:18:33 Wet Read Request 07/02/2023 23:18:33 Meds Admin Request 07/02/2023 23:20:02 Bed Request Request 07/03/2023 00:32:23 Reg Bed Request Complete 07/03/2023 00:32:23 07/03/2023 00:53:12 07/03/2023 00:53:12 Admit Request 07/03/2023 00:32:23 Pending Labs Complete 07/03/2023 00:38:08 07/03/2023 00:38:08 07/03/2023 01:00:15 Lab Complete 07/03/2023 00:38:08 07/03/2023 00:38:08 07/03/2023 01:00:15 Patient Care Request 07/03/2023 00:53:12 Patient Care Request 07/03/2023 00:53:12 Patient Care Request 07/03/2023 00:53:13 Patient Care Request 07/03/2023 00:53:13 Pending Labs Complete 07/03/2023 02:36:18 07/03/2023 02:36:18 07/03/2023 02:36:19 ADDRESS: [address] [place] [address] [address] [facility] [id number] PHYS DOC NOTES: MEDICAL INFORMATION: Prescriptions Given: Medications to Continue with No Changes Other Medications ciprofloxacin (Cipro 500 mg Tab) 1 Tablets By Mouth As Directed. Patient to take 1 tab the day before procedure and the 2nd tab the day of procedure once completed. Refills: 0. dicyclomine (Bentyl 10 mg Cap) 1 Capsules By Mouth 4 times a day for 7 Days. Refills: 0. estradiol topical (Estrace 0.1 mg/g Cream) 0.5 Gram Vaginal Monday & Monday. Refills: 6. lorazepam (Ativan 0.5 mg Tab) 1 Tablets By Mouth 3 times a day as needed as needed for anxiety. ondansetron (Zofran ODT 4 mg Tab-Dis) 1 Tablets By Mouth every 8 hours. Refills: 0. PATIENT EDUCATION INFORMATION: Instructions: Follow up: DIAGNOSIS: 1:Urinary hesitancy; 2:Atrial fibrillation with RVR; 3:New onset a-fib; 4:Elevated troponin Normal [facility] ED Note-Physicianon 07-03-20 ED Note-Physician Basic Information Time Seen: Layton Crawford M.D. 07/02/2023 21:51 Chief Complaint Pt presents to ED with complaints of urinary retention worsening since urethra stretching in apr. History of Present Illness The patient is a 73-year-old female who presented to the emergency room with urinary retention. The patient states at the end of the April Dr. Brooks did dilatation of her urethra, however after the surgery she was still having problems. The patient states the last time she urinated was last night. She states today around 4 PM she had some dribbling and around 5 PM she started having some abdominal pain. The patient states she felt nauseated. She took nausea medication and nausea improved. The patient denies any back pain. She denies any other associated symptoms. Review of Systems Additional ROS info: Except as noted in the above Review of Systems and in the History of Present Illness all other systems have been reviewed and are negative or noncontributory. Physical Exam Vitals & Measurements T: 36.8 ?C(Oral) HR: 80(Monitored) RR: 14 BP: 119/83 SpO2: 98% HT: 165 cm WT: 55.7 kg BMI: 20.46 General: The patient is writhing on the bed and pulling the mask off. Responds what when calling his name Skin: cool, dry Head: no trauma, normocephalic Neck: Trachea midline Eye: normal conjunctiva, sclera clear ENMT: Oral mucosa dry Cardiovascular: regular rate and rhythm, normal peripheral perfusion, no murmur, no edema Respiratory: Lungs CTA, respirations non labored, breath sounds equal, symmetrical expansion Chest wall: no deformity,notendernes s Gastrointestinal: soft, non distended, no tenderness, no guarding, normal bowel sounds, no organomegaly Back: No tenderness, Normal ROM, Normal alignment, no step-offs. Musculoskeletal: normal ROM, no tenderness, normal strength. Extremities: no deformity, no trauma Neurological: Alert and oriented, CN II-XII intact, motor strength equal & normal bilaterally, sensation equal & normal bilaterally, speech normal, no focal neuro deficits, normal coordination Psychiatric: cooperative, affect appropriate for age, Medical Decision Making MEDICAL DECISION MAKING Number and Complexity of Problems Differential Diagnosis: [] [facility] Data External documents reviewed: [] My EKG interpretation: [] My CT interpretation: [] My X-ray interpretation: [] My Ultrasound interpretation: [] Decision rules/scores evaluated: [] Discussed with: Hospitalist Treatment and Disposition ED Course: The patient presented with urinary hesitancy initially. Robles catheter was placed and about 100 mL of normal saline was drained. The patient was found to be on A-fib with RVR. The atrial fibrillation is new for the patient. The patient was given Cardizem bolus and a drip and her heart rate improved. She continues to be on A-fib. Blood work reviewed. Her troponin is slightly elevated. More likely due to the tachycardia. The case is discussed with the hospitalist and the patient will be admitted to the hospitalist services. Shared decision making: [] Code status: [] Critical Care Time: 40 minutes, critical care time is separate from any procedures that are performed. The following was considered in the determination of critical care but not limited to the level medical decision-making, intensive cardiac and/or respiratory monitor, frequent vital sign monitoring, evaluation of laboratory studies, evaluation of a radiographic studies, oxygen monitoring and constant monitoring. Assessment/Plan 1. Urinary hesitancy (R39.11: Hesitancy of micturition) 2. Atrial fibrillation with [...] Urinary Catheter Insertion XR Chest Single View Medications Administered Given diltiazem additive 100 mg [5 mg/hr] + Sodium Chloride 0.9% intrave (more content not included)... Normal [facility] Comment on above: Result Comment: Elec tronically Signed By: Yvette Vasquez, Layton Cazares\.br\Date and Time Signed: 07/03/23 08:17 EST ED Patient Education Noteon 07-03-2023 ED Patient Education Note Normal [facility] ED Patient Summaryon 023 ED Patient Summary [place] [address] Patient Discharge Instructions Person Information Name: ASYA ASENCIO I Age: 73 Years Arrival Date: 07/02/2023 21:17:31 Discharge Diagnosis: 1:Urinary hesitancy; 2:Atrial fibrillation with RVR; 3:New onset a-fib; 4:Elevated troponin Primary Care Physician: Peggy Nazario MD Provider Information Primary Provider: Layton Crawford M.D. Advanced Technical Internship:None The exam and treatment you received in the Emergency Department were for an urgent problem and are not intended as complete care. It is important that you follow up with a doctor, nurse practitioner, or physician?s assistant operations manager for ongoing care. If your symptoms become worse or you do not improve as expected and you are unable to reach your usual health care provider, you should return to the Emergency Department. We are available 24 hours a day. ASYA ASENCIO I has been given the following list of patient education materials, prescriptions and follow-up instructions: Follow-up Instructions: In the event that this physician does not participate in your insurance network, please consult with your insurance company to find a nearby participating provider. Patient Education Materials: A MESSAGE TO ALL PATIENTS REGARDING OPIOIDS PRESCRIPTION OPIOIDS: WHAT YOU NEED TO KNOW Prescription opioids can be used to help relieve sjzdjpal-yv-wefyua pain and are often prescribed following a surgery or injury, or for certain health conditions. These medications can be an important part of the treatment but also come with serious risks. It is important to work with your healthcare provider to make sure you are getting the safest, most effective care. WHAT ARE THE RISKS AND SIDE EFFECTS OF OPIOID USE? Prescription opioids carry serious risks of addiction and overdose, especially with prolonged use. An opioid overdose, often marked by slowed breathing, can cause sudden . The use of prescription opioids can have a number of side effects as well, even when taken as directed: ? Tolerance?meaning you might need to take more of the medication for the same pain relief ? Physical dependence?meaning you have symptoms of withdrawal when a medication is stopped ? Increased sensitivity to pain ? Constipation ? Nausea, vomiting, and dry mouth ? Sleepiness and dizziness ? Confusion ? Depression ? Low levels of testosterone that can result in lower sex drive, energy, and strength ? Itching and sweating RISKS ARE GREATER WITH: ? History of drug misuse, substance use disorder, or overdose ? Mental health conditions (such as depression or anxiety) ? Sleep apnea ? Older age (65 years and older) ? Avoid alcohol while taking prescription opioids. Also, unless specifically advised by your health care provider, medications to avoid include: ? Benzodiazepines (such as Xanax or Valium) ? Muscle relaxants (such as Soma or Flexeril) ? Hypnotics (such as Ambien or Lunesta) ? Other prescription opioids KNOW YOUR OPTIONS Talk to your health care provider about ways to manage your pain that don?t involve prescription opioids. Some of these options may actually work better and have fewer risks and side effects. Options may include: ? Pain relievers such as acetaminophen, ibuprofen, and naproxen ? Some medication that are also used for depression or seizures ? Physical therapy and exercise ? Cognitive behavioral therapy, a psychological, goal-directed approach, in which patients learn how to modify physical, behavioral, and emotional triggers of pain and stress. IF YOU ARE PRESCRIBED OPIOIDS FOR PAIN: ? Never take opioids in greater amounts or more often than prescribed. ? Follow up with your primary health care provider. o Work together to create a plan on how to manage your pain. o Talk about ways to help manage your pain that don?t involve prescription opioids. o Talk about any and all concerns and side effects. ? Help prevent misuse and abuse o Never sell or share prescription opioids. o Never use another person?s prescription opioids. ? Store prescription opioids in a secure place and out of reach of others (this may include visitors, children, friends, and family). ? Safely dispose of unused prescription opioids: Find your community drug take-back program or your pharmacy mail-back program, or flush them down the toilet, following guidance from the Food and Drug Administration (www.fda.gov/Drugs/Re sourcesForYou). ? Visit www.cdc.gov/drugoverd ose to learn about the risks of opioids abuse and overdose. ? If you believe you may be struggling with addiction, tell your health animal care worker and ask for guidance or call [facility]S National Helpline at 4-541-696-SKOE. n Source: [place] Department of Health and Human Services/Center for Disease Control & Prevention [facility] (more content not included)... Normal [facility] Hep Func Panelon 07-03-2023 Albumin [Mass/Vol] 3.8 g/dL Normal 3.3-5.0 [facility] Comment on above: Performed By: #### 1 4801115, 3161271, 1886700, 3252691, 9892842, 33422837, 0454140 ####[facility] [address] [place] [address] Albumin/Globulin (S) [Mass conc ratio] 1.3 Normal 1.1-2.2 [facility] Comment on above: Performed By: #### 1 6027550, 9712167, 1722554, 8524526, 4488423, 09055527, 2243330 ####[facility] [address] [place] [address] ALP [Catalytic activity/Vol] 58 Int._Unit/L Normal 21-98 [facility] Comment on above: Performed By: #### 1 4880203, 5799755, 2863094, 1451670, 3672453, 95555452, 5347300 ####[facility] [address] [place] [address] ALT No additional P-5'-P [Catalytic activity/Vol] 66 Int._Unit/L High 6-46 [facility] Comment on above: Performed By: #### 1 4265440, 2192326, 2841751, 6804276, 6896568, 24829043, 5378870 ####[facility] [address] [place] [address] AST [Catalytic activity/Vol] 81 Int._Unit/L [facility] 5-43 [facility] Comment on above: Performed By: #### 1 2542030, 1389104, 2817700, 7555843, 0598479, 17112010, 7155997 ####[place] [address] [place] [id number] Bilirubin [Mass/Vol] 0.5 mg/dL Normal 0.0-1.1 [facility] Comment on above: Performed By: #### 1 5149474, 5425119, 4770610, 7219671, 6855208, 82873472, 3903087 ####[place] [address] Bilirubin.direct [Mass/Vol] 0.1 mg/dL Normal 0.1-0.4 [facility] Comment on above: Performed By: #### 1 9352216, 2497780, 1483023, 0251559, 7682418, 89083490, 7779363 ####[place] [address] [place] [id number] Bilirubin.indirect [Mass or moles/Vol] 0.4 mg/dL Normal 0.1-0.9 [facility] Comment on above: Performed By: #### 1 0797204, 5380889, 6368487, 9104904, 8414827, 50021287, 2518591 ####[place] [address] [place] [address] Globulin (S) [Mass/Vol] 2.9 g/dL Normal 1.4-4.0 [facility] Comment on above: Performed By: #### 1 7643572, 5163412, 1669546, 6514819, 5209167, 38642294, 9227280 ####[facility] [address] [place] [address] Protein [Mass/Vol] 6.7 g/dL Normal 6.0-7.8 [facility] Comment on above: Performed By: #### 1 5228069, 8886168, 7492159, 9890842, 6045181, 27982028, 0869124 ####[facility] [address] [place] [address] TwpM1cyp 07-03-2023 HbA1c (Bld) [Mass fraction] 5.5 % Normal <=5.9 [facility] Comment on above: Performed By: #### 2 567523, 89977066, 2116268, 2144919, 1697925, 5697596 #### [facility] [address] [place] [address] Interdisciplinary Note - Tico e Manageron 07-03-2023 Interdisciplinary Note - Explosive Ordnance Disposal Technician CRM to room to discuss DC planning. Patient is awake, alert and oriented. Patient verified PCP, home DME and insurance. Patient is from home alone, she drove herself here and plans to drive self home. Patient is observation, Fernandez form signed. Patient is here for urinary retention and A Fib. Patient has a Robles. Patient is assigned to Dr Serrato, see notes. Patient has consults of Cardiology and Urology. Patient at this time denied needs for HH, PM or DME at DC. Patient was provided CRM contact, white board updated. Anticipated DC TBD. CRM following Normal [facility] Comment on above: Result Comment: Elec tronically Signed By: Brigitte Nazario\.br\Date and Time Signed: 07/03/23 13:05 EST Lipid Panelon 07-03-2023 Cholesterol [Mass/Vol] 145 mg/dL Normal 120-200 [facility] Comment on above: Performed By: #### 2 310009, 56263564, 4133662, 2333335, 9665252, 4010666 #### [facility] [address] [place] [address] Cholesterol in HDL [Mass/Vol] 43 mg/dL Invalid Interpretation Code [facility] Comment on above: Result Comment: HDL > or equal to 60 mg/dL: Low cardiovascular risk HDL < 40 mg/dL : High cardiovascular risk Performed By: #### 2 717273, 14456184, 3552162, 0579548, 0342480, 8159915 #### [facility] [address] [place] [address] Cholesterol in LDL [Mass/Vol] 99 mg/dL Normal <=129 [facility] Comment on above: Performed By: #### 2 800119, 76355819, 9572613, 0786835, 5241577, 7213376 #### [facility] [address] [place] [address] Cholesterol in VLDL [Mass/Vol] 17 mg/dL Normal 7-40 [facility] Comment on above: Performed By: #### 2 397351, 36676452, 3215463, 1720049, 3158224, 5392561 #### [facility] [address] [place] [address] Triglyceride [Mass/Vol] 85 mg/dL Normal <=149 [facility] Comment on above: Performed By: #### 2 473327, 20925017, 7651771, 9042617, 0608577, 8607520 #### [facility] [address] [place] [address] Magnesiumon 07-03-2023 Magnesium [Mass/Vol] 2.0 mg/dL Normal 1.3-2.4 [facility] Comment on above: Performed By: #### 1 8478245, 2759862, 8623989, 3598253, 7755855, 32057696, 9696292 ####[facility] [address] [place] [address] Message from Medicareon 06-15 Message from Medicare [id number]# 1.00TIFF Normal [facility] Monitor Recordon 07-03-2023 Monitor Record [id number]# 1.00TIFF Normal [facility] Monitor Record [id number]# 1.00TIFF Normal [facility] Monitor Record [id number]# 1.00TIFF Normal [facility] Progress Note-Physicianon Progress Note-Physician Assessment/Plan 73-year-old female with history of urethral stricture [...] Acute paroxysmal atrial fibrillation with rapid ventricular response?present on admission. Cardiology consult pending. Continue on IV Cardizem drip. I ordered echocardiogram. Ordered: [facility]Day Moderate 35 Minutes 30758 2. Elevated troponin (R79.89: Other specified abnormal findings of blood chemistry) Secondary to type II non-ST segment elevation myocardial infarction from above. Echocardiogram ordered. Cardiology consult pending. Continue on aspirin. Ordered: [facility]horacic [facility]/Day Moderate 35 Minutes 36231 3. Urinary hesitancy (R39.11: Hesitancy of micturition) Secondary to urethral stricture. Patient is status post Robles catheter placement for urinary retention. She will follow-up with urologist as outpatient. [facility]: [facility] Moderate 35 Minutes 61255 4. Constipation (K59.00: Constipation, unspecified) Started patient on MiraLAX and lactulose. Ordered: lactulose, 20 gram = 30 mL, Syrup, Oral, Once, Stop date 07/03/23 12:00:00 EST, Routine, Start date 07/03/23 12:00:00 EST, 07/03/23 12:00:00 EST polyethylene glycol 3350, 17 gram = 1 EA, Powder-Recon, Oral, Daily, Routine, Start date 07/03/23 12:00:00 EST, 07/03/23 12:00:00 EST Sbsq Hospital Care/Day Moderate 35 Minutes 12729 5. Other urethral stricture, female (N35.82: Other urethral stricture, female) Resulting in urinary retention. Patient is status post Robles catheter during this admission. Gets dilation of the ureter every 6 months. Urology consult pending. 6. On deep vein thrombosis (DVT) prophylaxis (Z79.899: Other [facility] (current[facility] drug therapy) Lovenox. Disposition: Pending echocardiogram, cardiology and urology consult. I discussed the diagnosis and plan of care with the patient at the bedside. Moderate level of MDM based on addressing above issues. This documentation was transcribed using voice recognition software. Several attempts were made to ensure accuracy. However inadvertent computerized business process engineer errors may be present. Nahid Serrato. Hospitalist. Orders: Cardiac Diet Subjective Seen and examined. Complains of urethral irritation. Also complains of bladder fullness. Otherwise doing well. Does have occasional cough. Objective Vitals & Measurements T: 36.5 ?C(Axillary) TMIN: 36.3 ?C(Axillary) TMAX: 36.9 ?C(Oral) HR: 81(Monitored) RR: 18 BP: 117/61 SpO2: 92% HT: 165.10 cm WT: 57.4 kg Intake & Output This visit (24 hour periods starting at 07:00 EST) 07/03/23 * 07/02/23 07/01/23 Total Summary Intake mL -- 1,003 -- Output mL -- 1,000 -- Fluid Balance -- 3 -- Intake (2) Sodium Chloride 0.9% mL -- 1,000 -- diltiazem mL -- 3 -- Total -- 1,003 -- Output (2) Urine Catheter mL -- 900 -- Urine Output Initial mL -- 100 -- Total -- 1,000 -- Counts (0) * This column has not completed the indicated time period. Physical Exam General: alert, no acute distress Skin: warm, dry Head: no trauma, normocephalic Neck: Trachea midline, no adenopathy, no tenderness Eye: normal conjunctiva, sclera clear ENMT: TM's clear, oral mucosa moist, no pharyngeal erythema or exudate Cardiovascular: irregularly-irregular rate and rhythm, normal peripheral perfusion Respiratory: Lungs CTA, respirations non labored Chest wall: no deformity. Gastrointestinal: soft, non distended, no tenderness, no guarding. Bowel sounds intact. Genitourinary: Robles catheter in place and draining urine. Back: No tenderness, Normal ROM, Normal alignment. Extremities: no deformity, no trauma Neurological: oriented x 4, LOC appropriate for age, CN II-XII intact, motor strength equal & normal bilaterally, sensation equal & normal bilaterally, speech normal Psychiatric: cooperative, affect appropriate for age, normal judgement, normal psychiatric thoughts. Lab Results WBC: 6.2 E9/L (07/02/23 22:10:00) RBC: 4.3 E12/L (07/02/23 22:10:00) HGB: 12.7 gm/dL (07/02/23 22:10:00) Hct: 38.5 % (07/02/23 22:10:00) MCV: 90.3 fL (07/02/23 22:10:00) MCH: 29.7 pg (07/02/23 22:10:00) MCHC: 32.9 gm/dL (07/02/23 22:10:00) RDW: 13.5 % (07/02/23 22:10:00) Platelet: 183 E9/L (07/02/23 22:10:00) MPV: 9.1 fL (07/02/23 22:10:00) Neutro Auto: 76.7 % High (07/02/23 22:10:00) Lymph Auto: 15.3 % (07/02/23 22:10:00) [place] Auto: 7.7 % (07/02/23 22:10:00) Eos Auto: 0 % (07/02/23 22:10:00) Baso (more content not included)... Normal [facility] Comment on above: Result Comment: Elec tronically Signed By: JAZMÍN MCMAHON, Nahid\.br\Date and Time Signed: 07/03/23 10:57 EST TSH With T4fr Reflexon 07-03 TSH Qn 3.83 m[IU]/L Normal 0.34-5.60 [facility] Comment on above: Performed By: #### 2 223220, 73314982, 5067335, 0371638, 0942189, 6871973 #### [facility] [address] [place] [address] Troponinon 07-03-2023 Troponin I.cardiac [Mass/Vol] 27.10 pg/mL Normal 10.10-27.10 [facility] Comment on above: Result Comment: The 95% CI (Confidence Interval) PPV (Positive Predictive Value) for myocardial infarction in females is 38 pg/mL, in males 51 pg/mL. The results should be used in conjunction with clinical conditions of myocardial infarction. (Access High Sensitivity Troponin I Instructions For Use, [employer], March 2018) Performed By: #### 2 646154, 29049790, 2424202, 8061117, 3964857, 2599049 #### [facility] [address] [place] [address] Troponin 0 Hr.on 07-03-2023 Troponin I.cardiac [Mass/Vol] 27.30 pg/mL High 10.10-27.10 [facility] Comment on above: Result Comment: The 95% CI (Confidence Interval) PPV (Positive Predictive Value) for myocardial infarction in females is 38 pg/mL, in males 51 pg/mL. The results should be used in conjunction with clinical conditions of myocardial infarction. (Access High Sensitivity Troponin I Instructions For Use, [employer], March 2018) Performed By: #### 1 7362813, 6065387, 4749948, 2318199, 6500016, 15679164, 7169692 ####[facility] [address] [place] [address] Troponin 3 Hr.Ordered By: [employer] on 07-03-2023 Troponin I.cardiac [Mass/Vol] 27.70 pg/mL High 10.10-27.10 [facility] Comment on above: Interpretive Data: T he 95% CI (Confidence Interval) PPV (Positive Predictive Value) for myocardial infarction in females is 38 pg/mL, in males 51 pg/mL. The results should be used in conjunction with clinical conditions of myocardial infarction. (Access High Sensitivity Troponin I Instructions For Use, [employer], March 2018) Result Comment: The 95% CI (Confidence Interval) PPV (Positive Predictive Value) for myocardial infarction in females is 38 pg/mL, in males 51 pg/mL. The results should be used in conjunction with clinical conditions of myocardial infarction. (Access High Sensitivity Troponin I Instructions For Use, [employer] [place], March 2018) Performed By: #### 2 084981, 67826982, 5838570, 8553652, 5787025, 0162696 #### [facility] [address] [place] [address] XR Chest Single Viewon 07-03 XR Chest Single View Exam Date/Time: 07/02/2023 23:18 EST Reason for Exam: Chest pain Report IMPRESSION: NO MEGALY WITH PULMONARY VENOUS CONGESTION. CLINICAL HISTORY: Chest pain COMPARISON: Chest radiograph, April 26, 2021 FINDINGS: Osseous structures intact. Cardiopericardial silhouette enlarged. Pulmonary vasculature indistinct. Lungs clear. Ordering Provider: Layton Crawford FINAL REPORT Dictated: 07/03/2023 9:53 am Moiz Carreno MD Signed (Electronic Signature): 07/03/2023 9:53 am Signed by: Moiz Carreno MD Transcribed by: ARAVIND Technologist: RADHA Technical Comments Radiation Dose: Ka,r in mGy = na DAP = na Normal [facility] Auto Diffon 07-02-2023 Basophils/100 WBC (Bld) 0.3 % Normal 0.0-2.0 [facility] Comment on above: Order Comment: Order Added by Discern Expert. Performed By: #### 1 9444069, 7510819, 6108686, 2321067, 2780842, 37401229, 1669873 ####[facility] [address] [place] [address] Basophils/Leukocytes Auto (Bld) [Pure # fraction] 0.0 E9/L Normal 0.0-0.2 [facility] Comment on above: Order Comment: Order Added by Discern Expert. Performed By: #### 1 6735626, 2448201, 0948918, 8901691, 4394501, 76935433, 0102605 ####[facility] [address] [place] [address] Eosinophils/100 WBC (Bld) 0.0 % Normal 0.0-8.0 [facility] Comment on above: Order Comment: Order Added by Discern Expert. Performed By: #### 1 9951051, 4409615, 5711081, 4757510, 4346694, 09420735, 2905156 ####[place] [address] [place] [address] Eosinophils/Leukocyte s Auto (Bld) [Pure # fraction] 0.0 E9/L Normal 0.0-0.5 [facility] Comment on above: Order Comment: Order Added by Discern Expert. Performed By: #### 1 1749568, 8314462, 8893548, 2380817, 1067167, 28908237, 7170519 ####[address] [address] Lymphocytes/100 WBC (Bld) 15.3 % Normal 14.0-50.0 [facility] Comment on above: Order Comment: Order Added by Discern Expert. Performed By: #### 1 7708610, 6581379, 4566584, 4359309, 9272693, 44890297, 0855888 ####[address] [address] Lymphocytes/Leukocyte s Auto (Bld) [Pure # fraction] 0.9 E9/L Low 1.0-4.0 [facility] Comment on above: Order Comment: Order Added by Discern Expert. Performed By: #### 1 4744788, 0734971, 2794439, 3125668, 2051683, 10167881, 5109345 ####[place] [address] [place] [address] Monocytes/100 WBC (Bld) 7.7 % Normal 4.0-14.0 [facility] Comment on above: Order Comment: Order Added by Discern Expert. Performed By: #### 1 4078250, 4981829, 9955460, 5220628, 7740778, 27252305, 1549129 ####[place] [address] [place] [address] Monocytes/Leukocytes Auto (Bld) [Pure # fraction] 0.5 E9/L Normal 0.2-1.0 [facility] Comment on above: Order Comment: Order Added by Discern Expert. Performed By: #### 1 9718546, 0548625, 1871784, 8774421, 9530318, 38292673, 3332057 ####[facility] [address] [place] [address] Neutrophils/100 WBC (Bld) 76.7 % High 36.0-75.0 [facility] Comment on above: Order Comment: Order Added by Discern Expert. Performed By: #### 1 6528737, 6459915, 4439805, 5191429, 4499619, 45913744, 1799196 ####[facility] [address] [place] [address] Neutrophils/Leukocyte s Auto (Bld) [Pure # fraction] 4.7 E9/L Normal 2.0-7.5 [facility] Comment on above: Order Comment: Order Added by Discern Expert. Performed By: #### 1 1343074, 1599534, 6420690, 5045935, 5008510, 70898014, 1199646 ####[facility] [address] [place] [address] BMP 07-02-2023 Creatinine [Mass/Vol] 1.0 mg/dL Normal 0.5-1.3 [facility] Comment on above: Performed By: #### 1 0599261, 2910576, 5677417, 4135311, 1087911, 15425714, 4083858 ####[facility] [address] [place] [address] Urea nitrogen [Mass/Vol] 13 mg/dL Normal 5-21 [facility] Comment on above: Performed By: #### 1 5301799, 5419917, 5155878, 5199465, 2765667, 02873087, 5411521 ####[facility] [address] [place] [address] Urea nitrogen/Creatinine [Mass ratio] 13 No Units Normal 10-20 [facility] Comment on above: Performed By: #### 1 4615833, 4897615, 7236224, 4433746, 2780320, 27472090, 8423799 ####[facility] [address] [place] [address] Anion gap [Moles/Vol] 13 mmol/L Normal 6-16 [facility] Comment on above: Performed By: #### 1 2412990, 9143753, 3878986, 7986583, 2967014, 36490387, 2968106 ####[facility] [address] [place] [address] Calcium [Mass/Vol] 9.1 mg/dL Normal 8.9-11.1 [facility] Comment on above: Performed By: #### 1 6537889, 7932151, 1279837, 1157434, 0590352, 88898834, 6380597 ####[facility] [address] [place] [address] Chloride [Moles/Vol] 100 mmol/L Low 101-111 [facility] Comment on above: Performed By: #### 1 4976526, 6900264, 2287142, 5723549, 9910217, 37558857, 0227895 ####[facility] [address] [place] [address] CO2 [Moles/Vol] 24 mmol/L Normal 21-31 [facility] Comment on above: Performed By: #### 1 0794176, 5433305, 5230532, 3474272, 7362580, 33859485, 3708396 ####[facility] [address] [place] [address] Glucose [Mass/Vol] 129 mg/dL Normal 55-199 [facility] Comment on above: Result Comment: If t his glucose result represents a fasting glucose, interpretation should refer to the following reference range: 55-99 mg/dL Performed By: #### 1 [id number], 2918528, 1445773, 1342122, 3796516, 52510088, 6997749 ####[facility] [address] [place] [address] Potassium [Moles/Vol] 3.8 mmol/L Normal 3.5-5.3 [facility] Comment on above: Performed By: #### 1 5148961, 6290783, 6968492, 4949324, 5105900, 32020247, 0188127 ####[facility] [address] [place] [address] Sodium [Moles/Vol] 133 mmol/L Low 135-145 [facility] Comment on above: Performed By: #### 1 2862906, 7826742, 8151929, 0232710, 1212529, 80704530, 8863815 ####[facility] [address] [place] [address] CBC w/ Auto Diffon 3 Erythrocyte distribution width (RBC) [Ratio] 13.5 % Normal 10.9-14.2 [facility] Comment on above: Performed By: #### 1 4253797, 8645904, 6335927, 5300371, 3517359, 04311357, 0370626 #### [facility] [address] [place] [address] Hematocrit (Bld) [Volume fraction] 38.5 % Normal 34.0-46.0 [facility] Comment on above: Performed By: #### 1 2513838, 1180998, 5956729, 1131637, 9736061, 36907837, 4634966 #### [facility] [address] [place] [address] Hemoglobin (Bld) [Mass/Vol] 12.7 g/dL Normal 12.0-16.0 [facility] Comment on above: Performed By: #### 1 0877210, 5381551, 3681065, 2776330, 7853342, 03648606, 0387626 #### [facility] [address] [place] [address] MCH (RBC) [Entitic mass] 29.7 pg Normal 27.0-34.0 [facility] Comment on above: Performed By: #### 1 3322802, 2983647, 0531832, 4644583, 9884475, 83383758, 4399631 #### [facility] [address] [place] [address] MCHC (RBC) [Mass/Vol] 32.9 g/dL Normal 31.4-36.0 [facility] Comment on above: Performed By: #### 1 3667959, 0752559, 8640632, 9608721, 6327710, 92801506, 2301975 #### [facility] [address] [place] [address] MCV (RBC) [Entitic vol] 90.3 fL Normal 80.0-100.0 [facility] Comment on above: Performed By: #### 1 9493089, 2844557, 1496060, 3768911, 4655078, 15471796, 7739743 #### [facility] [address] [place] [address] Platelet mean volume (Bld) [Entitic vol] 9.1 fL Normal 6.4-10.8 [facility] Comment on above: Performed By: #### 1 2161490, 0324244, 4578732, 1664213, 3976582, 49921678, 3889169 #### [facility] [address] [place] [address] Platelets (Bld) [#/Vol] 183.0 E9/L Normal 150.0-500.0 [facility] Comment on above: Performed By: #### 1 5927176, 5645256, 2712595, 6808678, 4190930, 17373138, 4174583 #### [facility] [address] [place] [address] RBC (Bld) [#/Vol] 4.3 E12/L Normal 4.3-5.9 [facility] Comment on above: Performed By: #### 1 1004093, 0774783, 4609144, 4785174, 6751080, 23796715, 9057594 #### [facility] [address] [place] [address] WBC corrected for nucl RBC Auto (Bld) [#/Vol] 6.2 E9/L Normal 4.0-11.0 [facility] Comment on above: Performed By: #### 1 5680998, 7572912, 8619442, 4603631, 3341790, 70992483, 8632335 #### [facility] [address] [place] [address] CHEMISTRYOrdered By: SYSTEM SYSTEM on 07-02-2023 Albumin [...] 59 mL/min/1.73 m2 Normal >=59mL/min/1 .73 m2 [facility] Chem S Comment on above: Interpretive Data: [...] Sensitivity Troponin I Instructions For Use, Marlys Walkerton, March 2018) Urea nitrogen [Mass/Vol] 13 mg/dL Normal 5 - 21 mg/dL [facility] Remisol Urea nitrogen/Creatinine [Mass ratio] 13 mg/mg Normal 10 - 20 [facility] Remisol COAGULATIONOrdered By: Lan Eastman on 07-02-2023 aPTT Coag (PPP) [Time] 30.2 s Normal 25.1 - 36.5 second(s) [facility] Auto Coag Comment on above: Interpretive Data: [...] the same coagulation reagent and instrumentation as [facility]. Currently there are no coagulation studies available worldwide for children to 14 days, and no normal ranges. Heparin therapeutic range (represented by Anti-Factor Xa activity of 0.2 - 0.4 U/mL) corresponds to PTT of 56.6 - 109.0 sec. INR Coag (PPP) [Relative time] 1.2 {INR} Invalid Interpretation Code [facility] Auto Coag Comment on above: Interpretive Data: I NR results are specifically intended to assess patients stabilized on long-term Anticoagulation therapy suggested INR s Less Intensive Anticoagulation 2.0 3.0 Conventional Range 3.0 4.5 PT Coag (PPP) [Time] 13.2 s High 9.4 - 1 2.5 second(s) [facility] Auto Coag Comment on above: Interpretive Data: [...] the same coagulation reagent and instrumentation as [facility]. Currently there are no coagulation studies available worldwide for children to 14 days, and no normal ranges. Consent for Treatmenton 06-14 Consent for Treatment [id number] [facility] HEMATOLOGYOrdered By: SYSTEM SYSTEM on 07-02-2023 Basophils/100 WBC (Bld) 0.3 % Normal 0.0 - 2.0 % [facility] HemeAutoSS Basophils/Leukocytes Auto (Bld) [Pure # fraction] 0.0 E9/L Normal 0.0 - 0.2 E9/L [facility] HemeAutoSS Eosinophils/100 WBC (Bld) 0.0 % Normal 0.0 - 8.0 % [facility] HemeAutoSS Eosinophils/Leukocyte s Auto (Bld) [Pure # fraction] 0.0 E9/L Normal 0.0 - 0.5 E9/L [facility] HemeAutoSS Lymphocytes/100 WBC (Bld) 15.3 % Normal 14.0 - 50.0 % [facility] HemeAutoSS Lymphocytes/Leukocyte s Auto (Bld) [Pure # fraction] 0.9 E9/L Low 1.0 - 4.0 E9/L [facility] HemeAutoSS Monocytes/100 WBC (Bld) 7.7 % Normal 4.0 - 14.0 % [facility] HemeAutoSS Monocytes/Leukocytes Auto (Bld) [Pure # fraction] 0.5 E9/L Normal 0.2 - 1.0 E9/L [facility] HemeAutoSS Neutrophils/100 WBC (Bld) 76.7 % High 36.0 - 75.0 % [facility] HemeAutoSS Neutrophils/Leukocyte s Auto (Bld) [Pure # fraction] 4.7 E9/L [...] Normal 4.0 - 11.0 E9/L [facility] HemeAutoSS PT & PTTon 07-02-2023 aPTT Coag (PPP) [Time] 30.2 second(s) Normal 25.1-36.5 [facility] Comment on above: Result Comment: Para [...] the same coagulation reagent and instrumentation as [facility]. Currently there are no coagulation studies available worldwide for children to 14 days, and no normal ranges. Heparin therapeutic range (represented by Anti-Factor Xa activity of 0.2 - 0.4 U/mL) corresponds to PTT of 56.6 - 109.0 sec. Performed By: #### 2 076432, 52983539, 5626929, 0963790, 4273986, 8165002 #### [facility] [address] [place] [address] INR Coag (PPP) [Relative time] 1.2 {INR} Invalid Interpretation Code [facility] Comment on above: Result Comment: INR results are specifically intended to assess patients stabilized on long-term Anticoagulation therapy suggested INR?s ?Less Intensive Anticoagulation? 2.0 ? 3.0 Conventional Range 3.0 ? 4.5 Performed By: #### 2 573543, 54645988, 1810286, 8726314, 9262734, 3156207 #### [facility] [address] [place] [address] PT Coag (PPP) [Time] 13.2 second(s) High 9.4-12.5 [facility] Comment on above: Result Comment: 15 [...] the same coagulation reagent and instrumentation as [facility]. Currently there are no coagulation studies available worldwide for children to 14 days, and no normal ranges. Performed By: #### 2 191387, 24357107, 8460945, 8591169, 5385527, 5799407 #### [facility] [address] [place] [address] UA With Cult Reflexon 2022 Bacteria LM Ql (Urine sed) TRACE Normal Trace [facility] Comment on above: Order Comment: Urina ry Catheter Insertion triggered Urinalysis With Culture Reflex order by discern. Performed By: #### 2 645909, 68210879, 6411955, 2631683, 7613416, 7598135 #### [facility] [address] [place] [address] Bilirubin Ql (U) Negative Normal Negative [facility] Comment on above: Order Comment: Urina ry Catheter Insertion triggered Urinalysis With Culture Reflex order by discern. Performed By: #### 2 652754, 54672554, 6353762, 9769293, 8196600, 2550082 #### [facility] [address] [place] [address] Clarity (U) CLEAR Normal Clear [facility] Comment on above: Order Comment: Urina ry Catheter Insertion triggered Urinalysis With Culture Reflex order by discern. Performed By: #### 2 301959, 15330418, 0562828, 1741669, 0232631, 1747216 #### [facility] [address] [place] [address] Color (U) YELLOW Normal Yellow [facility] Comment on above: Order Comment: Urina ry Catheter Insertion triggered Urinalysis With Culture Reflex order by discern. Performed By: #### 2 735190, 76278693, 7663562, 9873881, 3366558, 0194056 #### [facility] [address] [place] [address] Epithelial cells.squamous LM.HPF (Urine sed) [#/Area] 9-10 Normal 0-2 [facility] Comment on above: Order Comment: Urina ry Catheter Insertion triggered Urinalysis With Culture Reflex order by discern. Performed By: #### 2 456266, 55545665, 7729756, 9828419, 6758912, 2076137 #### [facility] [address] [place] [address] Glucose Test strip (U) [Mass/Vol] Negative Normal Negative [facility] Comment on above: Order Comment: Urina ry Catheter Insertion triggered Urinalysis With Culture Reflex order by discern. Performed By: #### 2 234474, 47990085, 3127840, 7629212, 0435502, 9669788 #### [facility] [address] [place] [address] Hemoglobin Ql (U) TRACE Abnormal Negative [facility] Comment on above: Order Comment: Urina ry Catheter Insertion triggered Urinalysis With Culture Reflex order by discern. Performed By: #### 2 583321, 61419997, 1423957, 8016445, 6309635, 4430582 #### [facility] [address] [place] [address] Ketones (U) [Mass/Vol] TRACE Invalid Interpretation Code Negative [facility] Comment on above: Order Comment: Urina ry Catheter Insertion triggered Urinalysis With Culture Reflex order by discern. Performed By: #### 2 046489, 60637501, 9948987, 1814009, 3530960, 2498823 #### [facility] [address] [place] [address] [place].plasma/Lithiu m.RBC (Bld) [Mass ratio] 0-3 Normal 0-3 [facility] Comment on above: Order Comment: Urina ry Catheter Insertion triggered Urinalysis With Culture Reflex order by discern. Performed By: #### 2 492770, 67376130, 7032065, 2682300, 3640820, 4778951 #### [facility] [address] [place] [address] Mucus Ql (Urine sed) TRACE Normal [facility] Comment on above: Order Comment: Urina ry Catheter Insertion triggered Urinalysis With Culture Reflex order by discern. Performed By: #### 2 863820, 39844961, 9798555, 3289750, 6960326, 8517623 #### [facility] [address] [place] [address] Nitrite Ql (U) Negative Normal Negative [facility] Comment on above: Order Comment: Urina ry Catheter Insertion triggered Urinalysis With Culture Reflex order by discern. Performed By: #### 2 322541, 95367256, 2224300, 5845524, 6292993, 8116882 #### [facility] [address] [place] [address] pH (U) 5.5 [pH] Invalid Interpretation Code 5.0-9.0 [facility] Comment on above: Order Comment: Urina ry Catheter Insertion triggered Urinalysis With Culture Reflex order by discern. Performed By: #### 2 795007, 95081010, 2600658, 5406773, 8567542, 3291648 #### [facility] [address] [place] [address] Protein (U) [Mass/Vol] Negative Normal Negative [facility] Comment on above: Order Comment: Urina ry Catheter Insertion triggered Urinalysis With Culture Reflex order by discern. Performed By: #### 2 206798, 74498104, 9350938, 8802111, 7638093, 8662989 #### [facility] [address] [place] [address] Specific gravity (U) [Rel density] 1.025 Invalid Interpretation Code 1.005-1.030 [facility] Comment on above: Order Comment: Urina ry Catheter Insertion triggered Urinalysis With Culture Reflex order by discern. Performed By: #### 2 970849, 99405039, 5927765, 8955902, 9462038, 6470140 #### [facility] [address] [place] [address] Type of Urine collection method Robles Normal [facility] Comment on above: Order Comment: Urina ry Catheter Insertion triggered Urinalysis With Culture Reflex order by discern. Performed By: #### 2 246621, 37786999, 9577940, 4608484, 2098303, 2801776 #### [facility] [address] [place] [address] Urobilinogen Qn (U) 0.2 {Judith'U}/dL Normal 0.0-1.0 [facility] Comment on above: Order Comment: Urina ry Catheter Insertion triggered Urinalysis With Culture Reflex order by discern. Performed By: #### 2 530388, 64803303, 8938865, 2510659, 6537853, 0090654 #### [facility] [address] [place] [address] WBC Auto Ql (U) Negative Normal Negative [facility] Comment on above: Order Comment: Urina ry Catheter Insertion triggered Urinalysis With Culture Reflex order by discern. Performed By: #### 2 645812, 25670100, 2530208, 5247512, 5880103, 9645651 #### [facility] [address] [place] [address] WBC LM.HPF (Urine sed) [#/Area] 0-5 Normal 0-5 [facility] Comment on above: Order Comment: Urina ry Catheter Insertion triggered Urinalysis With Culture Reflex order by discern. Performed By: #### 2 408390, 32993097, 6059054, 3648461, 7296838, 0379461 #### [facility] [address] [place] [address] URINALYSISOrdered By: Lan Eastman on 07-02-2023 Bacteria [...] Interpretation Code Negative [facility] UA Auto SS [place].plasma/Lithiu m.RBC (Bld) [Mass ratio] 0-3 /HPF Normal 0-3/HPF [...] PM) Invalid Interpretation Code 1.005 - 1.030 [facility] UA Auto SS UA Spec Desc Robles (07/02/23 10:18 PM) Normal [facility] UA Auto SS Urobilinogen Qn (U) 0.7388109 {Judith'U}/dL Normal 0.0 - 1.0 EU/dL [facility] UA Auto SS WBC Auto Ql (U) Negative (07/02/23 10:18 PM) Normal Negative [facility] UA Auto SS WBC LM.HPF (Urine sed) [#/Area] 0-5 /HPF Normal 0-5/HPF [facility] UA Auto SS eGFRon 07-02-2023 GFR/1.73 sq M.predicted among non-blacks MDRD (S/P/Bld) [Vol rate/Area] 59 mL/min/1.73 m2 Normal >=59 [facility] Comment on above: Order Comment: Order added by Discern Expert. Result Comment: Varnish Finisher luis kidney disease could be indicated at eGFR's of less than 60 mL/min/1.73m2. Kidney failure is indicated at less than 15 mL/min/1.73m2. Performed By: #### 1 7006282, 5073528, 9831369, 3881066, 6620753, 61828312, 7447176 ####[facility] [address] [place] [address] CT Abdomen/Pelvis w/o Contra ston 07-01-2023 CT Abdomen/Pelvis w/o Contrast Exam Date/Time: 06/30/2023 21:18 EST Reason for Exam: Abdominal pain, acute, nonlocalized;Other (please specify) Report IMPRESSION: MILD CARDIAC DECOMPENSATION WITH SMALL LAYERING PLEURAL EFFUSIONS. NO ACUTE INTRA-ABDOMINAL PROCESS OR OTHER SIGNIFICANT CHANGE FROM 04/04/2023 IDENTIFIED. CLINICAL HISTORY: Abdominal pain, acute, nonlocalized. COMPARISON: 04/04/2023. TECHNIQUE: Spiral unenhanced images were obtained of the abdomen and pelvis without contrast. All CT scans at this facility use dose modulation, iterative reconstruction, and/or weight based dosing when appropriate to reduce radiation dose to as low as reasonably achievable. FINDINGS: Liver: Unremarkable. No mass or lesion identified without contrast. Biliary: The gallbladder is unremarkable. No bile duct dilation. Pancreas: Unremarkable. No mass or duct dilation identified without contrast. Spleen: Not enlarged. No mass identified without contrast. Adrenals: Unremarkable. Kidneys: Small peripelvic cysts. No significant urinary tract calculi or hydronephrosis. GI tract: No abnormal dilation or wall thickening. Postoperative changes from subtotal sigmoid colectomy, otherwise unremarkable. Lymph nodes: No pathologically enlarged lymph nodes. Mesentery/peritoneum: No organized fluid collection, ascites, focal inflammatory changes, or mass. Retroperitoneum: No organized fluid collection, focal inflammatory changes or mass. Vasculature: Within normal limits. Pelvis: No mass, organized fluid collection, or ascites. The urinary bladder is unremarkable. Previous hysterectomy Bones/soft tissue: No acute osseous findings identified. Lower thorax: Small layering pleural effusions with mild to moderate diffuse septal thickening, mild scarring, and dependent atelectasis. The heart remains mild to moderately enlarged. Report Ordering Provider: Koby Masterson FINAL REPORT Dictated: 07/01/2023 8:18 am London Padilla MD Signed (Electronic Signature): 07/01/2023 8:18 am Signed by: London Padilla MD Transcribed by: ARAVIND Technologist: JORGE Technical Comments Rectal Contrast Given? No Oral contrast amount in ml's: 0 Normal [facility] Discharge Instructionson Discharge Instructions [id number] Normal [facility] ED Clinical Summaryon 2022 ED Clinical Summary [place] [address] ED Clinical Summary Person Information Name: ASYA ASENCIO I [facility] Age: 73 Years : 1950 Sex: Female Language: [place] PCP: Peggy Nazario MD Marital Status: Visit Id: Visit Reason: Diarrhea; Abdominal pain; ABD PAIN Speciality: Acuity: 3 Enc Type: Emergency Med Service: Emergency Arrival: 06/30/2023 18:48:02 Discharge: 07/01/2023 00:36:38 LOS: 000 05:48 Checkin: 06/30/2023 18:48:02 Checkout: 07/01/2023 00:36:38 Dispo Type: Home (Routine DC) EVENTS: Event Name Event Status Request Date/Time Start Date/Time Complete Date/Time Arrive Complete 06/30/2023 18:48:02 06/30/2023 18:48:02 06/30/2023 18:48:02 Document Home Meds Request 06/30/2023 18:48:02 Triage Complete 06/30/2023 18:48:02 06/30/2023 19:37:46 06/30/2023 19:37:46 Registration Complete 06/30/2023 19:01:45 06/30/2023 19:01:45 06/30/2023 19:01:45 Reg Complete Request 06/30/2023 19:01:45 Reg Bed Request Complete 06/30/2023 19:01:45 06/30/2023 19:01:45 06/30/2023 19:01:45 Isolation Screening Request 06/30/2023 19:37:47 Pending Labs Complete 06/30/2023 19:38:43 06/30/2023 20:46:55 Lab Complete 06/30/2023 19:38:43 06/30/2023 20:46:55 Urine Collect Complete 06/30/2023 19:38:43 06/30/2023 20:40:04 Pending Labs Complete 06/30/2023 20:26:16 06/30/2023 20:26:16 06/30/2023 20:46:54 Lab Complete 06/30/2023 20:26:16 06/30/2023 20:26:16 06/30/2023 20:46:54 Pending Labs Complete 06/30/2023 20:28:42 06/30/2023 20:28:42 06/30/2023 20:28:43 Bed Assign Complete 06/30/2023 20:40:53 06/30/2023 20:40:53 06/30/2023 20:40:53 Dr Exam Complete 06/30/2023 20:40:53 06/30/2023 20:41:55 06/30/2023 20:41:55 RN Exam Complete 06/30/2023 20:40:53 06/30/2023 21:02:34 06/30/2023 21:02:34 Pending Labs Complete 06/30/2023 20:41:45 06/30/2023 20:41:45 06/30/2023 20:41:52 Lab Complete 06/30/2023 20:41:45 06/30/2023 20:41:45 06/30/2023 20:41:52 Registration Request 06/30/2023 20:41:55 Meds Admin Complete 06/30/2023 20:59:29 06/30/2023 21:50:28 CT Complete 06/30/2023 20:59:29 06/30/2023 21:09:20 06/30/2023 21:18:29 Meds Admin Complete 06/30/2023 21:52:18 06/30/2023 21:57:16 Meds Admin Complete 06/30/2023 22:35:40 06/30/2023 22:55:06 Discharge Complete 07/01/2023 00:15:45 07/01/2023 00:37:45 07/01/2023 00:37:45 Transfer Complete 07/01/2023 00:37:46 07/01/2023 00:37:46 07/01/2023 00:37:46 ADDRESS: [address] [place] [id number] PHYS DOC NOTES: MEDICAL INFORMATION: Prescriptions Given: New Medications [id number], [address] [place], [place] [id number], [phone] dicyclomine (Bentyl 10 mg Cap) 1 Capsules By Mouth 4 times a day for 7 Days. Refills: 0. ondansetron (Zofran ODT 4 mg Tab-Dis) 1 Tablets By Mouth every 8 hours. Refills: 0. Medications to Continue with No Changes Other Medications ciprofloxacin (Cipro 500 mg Tab) 1 Tablets By Mouth As Directed. Patient to take 1 tab the day before procedure and the 2nd tab the day of procedure once completed. Refills: 0. estradiol topical (Estrace 0.1 mg/g Cream) 0.5 Gram Vaginal Monday & Monday. Refills: 6. lorazepam (Ativan 0.5 mg Tab) 1 Tablets By Mouth 3 times a day as needed as needed for anxiety. PATIENT EDUCATION INFORMATION: Instructions: Abdominal Pain, Adult, Hzet-li-Vcor Follow up: With: Address: When: Peggy Nazario [address] [place] [address] [employer] (1) In 3 days 07/04/2023 Comments: You can use the Bentyl, Zofran every 6 hours as needed for pain and nausea. Please follow-up with your primary care doctor next 2 to 3 days for further evaluation management. Please return to the ED for any new or worsening symptoms. DIAGNOSIS: Abdominal pain, acute Normal [facility] ED Note-Physicianon 07-01-20 ED Note-Physician Basic Information Time Seen: Koby Masterson DO 06/30/2023 20:41 Chief Complaint Pt having LLQ since last night after eating pot pie that didn't taste right. Pt. states having a lot of gas and diarrhea. Denies nausea/vomiting. History of Present Illness Patient is a 73-year-old female with past medical history of anxiety recurrent urinary tract infections presenting to the ED for evaluation of left lower quadrant pain. Patient states symptoms started earlier this week after eating some pot pay that did not taste right. Patient states she had some diarrhea on Monday that has since resolved however has been having pain in the left lower quadrant. Denies any fevers, chills, dizziness or lightheadedness. Patient also states that she started eating Activia yogurt however is lactose intolerant. Review of Systems A 10 point review of systems is negative except as noted above. Medical and Surgical History: Reviewed and noted Social history: Lives at home Tobacco: Denies Physical Exam Vitals & Measurements T: 36.6 ?C(Oral) HR: 114(Monitored) RR: 18 BP: 137/112 SpO2: 100% HT: 165 cm WT: 55.7 kg BMI: 20.46 General: Well developed, non toxic appearing, no acute distress HEENT: Head atraumatic, Mucosa moist, hearing grossly normal Neck: No JVD, tracheal deviation Cardiac: Regular rate, rhythm, no murmurs, or gallops, 2+ radial pulses Respiratory: Lungs clear to auscultation B/L, normal respiratory effort Abdomen: Soft, tenderness to palpation of the left lower quadrant no rebound or guarding, no peritoneal signs Extremities: No edema noted in the LE B/L, no tenderness to palpation Neurologic: Alert and oriented, speech clear Skin: No rashes or lesions Psych: Appropriate mood and behavior Medical Decision Making MEDICAL DECISION MAKING Number and Complexity of Problems Differential Diagnosis: [] [facility] Data External documents reviewed: [] My EKG interpretation: [] My CT interpretation: [] My X-ray interpretation: [] My Ultrasound interpretation: [] Decision rules/scores evaluated: [] Discussed with: [] Treatment and Disposition ED Course: Patient is a 73-year-old female presenting to the ED for evaluation of abdominal pain. Patient nontoxic and on arrival, no acute distress. Mild abdominal tenderness on examination. Laboratory evaluation is obtained shows slight elevation of her liver enzymes ALT 50 AST [address] on pelvis is ordered. Patient is given Bentyl in the ED for pain with improvement of her symptoms. Patient does have anxiety does take Ativan at night is given a dose of her Ativan. Patient CT imaging shows no acute findings. She is feeling improved on reexamination. She is discharged home with prescription for Bentyl, Zofran. She follow-up with her primary care doctor in the next 2 to 3 days. She is to return to the ED for any new or worsening symptoms. Shared decision making: [] Code status: [] Assessment/Plan Abdominal pain, acute (R10.9: Unspecified abdominal pain) Orders: dicyclomine, 20 mg = 2 mL, Injection, IntraMuscular, Once, Stop date 06/30/23 20:58:00 EST, STAT, Start date 06/30/23 20:58:00 EST, 06/30/23 20:58:00 EST dicyclomine, 10 mg = 1 cap(s), Oral, QID, X 7 day(s), # 14 cap(s), Refills(s) 0, Pharmacy: [facility] #[id number], 165, cm, 06/30/23 19:37:00 EST, Height/Length Dosing, [...] q8hr, # 12 tab(s), Refills(s) 0, Pharmacy: [facility] #[id number], 165, cm, 06/30/23 19:37:00 EST, Height/Length Dosing, 55.7, kg, 06/30/23 19:37:00 EST, Weight Dosing Automated Diff Basic Metabolic Panel CBC w/ Auto Diff CT Abdomen/Pelvis w/o Contrast eGFR Extra Blue Tube Hepatic Function Panel Lipase Level UA With Cult Reflex Medications Administered Given Ativan 1 mg Tab, 1 mg, Oral Bentyl 10 mg/mL Injection, 20 mg, IntraMuscular Zofran ODT 4 mg Tab-Dis, 4 mg, Oral Disposition Plan Discharge Prescription List Prescriptions Bentyl 10 mg Cap, 10 mg= 1 cap(s), Oral, QID Zofran ODT 4 mg Tab-Dis, 4 mg= 1 tab(s), Oral, q8hr Follow-up With When Contact Information Peggy Nazario In 3 days 07/04/2023 [facility] [address] [place] [address] Business (1) Additional Instructions: You can use the Bentyl, Zofran every 6 hours as needed for pain and nausea. Please follow-up with your primary care doctor next 2 to 3 days for further evaluation management. Please return to the ED for any new or worsening symptoms. Patient Education Abdominal Pain, Adult, Sxty-eo-Gipj Problem List/Past Medical History Ongoing acid reflux Acute ga (more content not included)... Normal [facility] Comment on above: Result Comment: Elec tronically Signed By: Koby Masterson DO\.br\Date and Time Signed: 07/01/23 01:03 [facility] ED Patient Education Noteon 07-01-2023 ED Patient Education Note Gastroenterology Abdominal Pain, Adult Many things can cause belly (abdominal) pain. Most times, belly pain is not dangerous. Many cases of belly pain can be watched and treated at home. Sometimes, though, belly pain is serious. Your doctor will try to find the cause of your belly pain. Follow these instructions at home: Medicines ? Take pzxn-led-uzbhxkc and prescription medicines only as told by your doctor. ? Do not take medicines that help you poop (laxatives) unless told by your doctor. General instructions ? Watch your belly pain for any changes. ? Drink enough fluid to keep your pee (urine) pale yellow. ? Keep all follow-up visits as told by your doctor. This is important. Contact a doctor if: ? Your belly pain changes or gets worse. ? You are not hungry, or you lose weight without trying. ? You are having trouble pooping (constipated) or have watery poop (diarrhea) for more than 2?3 days. ? You have pain when you pee or poop. ? Your belly pain wakes you up at night. ? Your pain gets worse with meals, after eating, or with certain foods. ? You are vomiting and cannot keep anything down. ? You have a fever. ? You have blood in your pee. Get help right away if: ? Your pain does not go away as soon as your doctor says it should. ? You cannot stop vomiting. ? Your pain is only in areas of your belly, such as the right side or the left lower part of the belly. ? You have bloody or black poop, or poop that looks like tar. ? You have very bad pain, cramping, or bloating in your belly. ? You have signs of not having enough fluid or water in your body (dehydration), such as: ? Dark pee, very little pee, or no pee. ? Cracked lips. ? Dry mouth. ? Sunken eyes. ? Sleepiness. ? Weakness. ? You have trouble breathing or chest pain. Summary ? Many cases of belly pain can be watched and treated at home. ? Watch your belly pain for any changes. ? Take ndmd-mmm-aukpvkm and prescription medicines only as told by your doctor. ? Contact a doctor if your belly pain changes or gets worse. ? Get help right away if you have very bad pain, cramping, or bloating in your belly. This information is not intended to replace advice given to you by your health care provider. Make sure you discuss any questions you have with your health care provider. Document Revised: 12/09/2019 Document Reviewed: 12/09/2019 Elsevier Patient Education ? 2022 [employer] Normal [facility] ED Patient Summaryon 023 ED Patient Summary [address] [address] Patient Discharge Instructions Person Information Name: ASYA ASENCIO I Age: 73 Years Arrival Date: 06/30/2023 18:48:02 Discharge Diagnosis: Abdominal pain, acute Primary Care Physician: Peggy Nazario MD Provider Information Primary Provider: Koby Masterson DO Advanced Technical Internship:None The exam and treatment you received in the Emergency Department were for an urgent problem and are not intended as complete care. It is important that you follow up with a doctor, nurse practitioner, or physician?s assistant operations manager for ongoing care. If your symptoms become worse or you do not improve as expected and you are unable to reach your usual health care provider, you should return to the Emergency Department. We are available 24 hours a day. ASYA ASENCIO I has been given the following list of patient education materials, prescriptions and follow-up instructions: Follow-up Instructions: With: Address: When: [address] [place] [address] Business (1) In 3 days 07/04/2023 Comments: You can use the Bentyl, Zofran every 6 hours as needed for pain and nausea. Please follow-up with your primary care doctor next 2 to 3 days for further evaluation management. Please return to the ED for any new or worsening symptoms. In the event that this physician does not participate in your insurance network, please consult with your insurance company to find a nearby participating provider. Patient Education Materials: Abdominal Pain, Adult, Pshh-ei-Oxdg A MESSAGE TO ALL PATIENTS REGARDING OPIOIDS PRESCRIPTION OPIOIDS: WHAT YOU NEED TO KNOW Prescription opioids can be used to help relieve xdyjuvpv-na-uvlwyg pain and are often prescribed following a surgery or injury, or for certain health conditions. These medications can be an important part of the treatment but also come with serious risks. It is important to work with your healthcare provider to make sure you are getting the safest, most effective care. WHAT ARE THE RISKS AND SIDE EFFECTS OF OPIOID USE? Prescription opioids carry serious risks of addiction and overdose, especially with prolonged use. An opioid overdose, often marked by slowed breathing, can cause sudden . The use of prescription opioids can have a number of side effects as well, even when taken as directed: ? Tolerance?meaning you might need to take more of the medication for the same pain relief ? Physical dependence?meaning you have symptoms of withdrawal when a medication is stopped ? Increased sensitivity to pain ? Constipation ? Nausea, vomiting, and dry mouth ? Sleepiness and dizziness ? Confusion ? Depression ? Low levels of testosterone that can result in lower sex drive, energy, and strength ? Itching and sweating RISKS ARE GREATER WITH: ? History of drug misuse, substance use disorder, or overdose ? Mental health conditions (such as depression or anxiety) ? Sleep apnea ? Older age (65 years and older) ? Avoid alcohol while taking prescription opioids. Also, unless specifically advised by your health care provider, medications to avoid include: ? Benzodiazepines (such as Xanax or Valium) ? Muscle relaxants (such as Soma or Flexeril) ? Hypnotics (such as Ambien or Lunesta) ? Other prescription opioids KNOW YOUR OPTIONS Talk to your health care provider about ways to manage your pain that don?t involve prescription opioids. Some of these options may actually work better and have fewer risks and side effects. Options may include: ? Pain relievers such as acetaminophen, ibuprofen, and naproxen ? Some medication that are also used for depression or seizures ? Physical therapy and exercise ? Cognitive behavioral therapy, a psychological, goal-directed approach, in which patients learn how to modify physical, behavioral, and emotional triggers of pain and stress. IF YOU ARE PRESCRIBED OPIOIDS FOR PAIN: ? Never take opioids in greater amounts or more often than prescribed. ? Follow up with your primary health care provider. o Work together to create a plan on how to manage your pain. o Talk about ways to help manage your pain that don?t involve prescription opioids. o Talk about any and all concerns and side effects. ? Help prevent misuse and abuse o Never sell or share prescription opioids. o Never use another person?s prescription opioids. ? Store prescription opioids in a secure place and out of reach of others (this may include visitors, children, friends, and family). ? Safely dispose of unused prescription opioids: Find your community drug take-back program or your pharmacy mail-back program, or flush them down the toilet, following guidance from the Food and Drug Administration (www.fda.gov/Drugs/Re sourcesForYou). ? Visit www.cdc.gov/drugoverd ose to le (more content not included)... Normal [facility] RAD - Preliminary Cat Scan R eporton 07-01-2023 RAD - Preliminary Cat Scan Report [id number] .[id number] Normal [facility] Auto Diffon 06-30-2023 Basophils/100 WBC (Bld) 0.8 % Normal 0.0-2.0 [facility] Comment on above: Order Comment: Order Added by Discern Expert. Performed By: #### 2 201594, 90781731, 9517606, 5299327, 9924995, 1324840 #### [facility] [address] [place] [address] Basophils/Leukocytes Auto (Bld) [Pure # fraction] 0.0 E9/L Normal 0.0-0.2 [facility] Comment on above: Order Comment: Order Added by Discern Expert. Performed By: #### 2 472651, 37476170, 7363117, 2677304, 4345888, 0200135 #### [facility] [address] [place] [address] Eosinophils/100 WBC (Bld) 0.2 % Normal 0.0-8.0 [facility] Comment on above: Order Comment: Order Added by Discern Expert. Performed By: #### 2 743865, 15283813, 7460694, 4890184, 0810604, 9914650 #### [facility] [address] [place] [address] Eosinophils/Leukocyte s Auto (Bld) [Pure # fraction] 0.0 E9/L Normal 0.0-0.5 [facility] Comment on above: Order Comment: Order Added by Discern Expert. Performed By: #### 2 835980, 52904164, 1448165, 4782423, 7532326, 2631664 #### [facility] [address] [place] [address] Lymphocytes/100 WBC (Bld) 26.7 % Normal 14.0-50.0 [facility] Comment on above: Order Comment: Order Added by Discern Expert. Performed By: #### 2 418452, 01118075, 4979268, 3358204, 8341832, 0194743 #### [facility] [address] [place] [address] Lymphocytes/Leukocyte s Auto (Bld) [Pure # fraction] 1.2 E9/L Normal 1.0-4.0 [facility] Comment on above: Order Comment: Order Added by Discern Expert. Performed By: #### 2 381711, 15897860, 6298631, 5498853, 2405630, 1939858 #### [facility] [address] [place] [address] Monocytes/100 WBC (Bld) 9.8 % Normal 4.0-14.0 [facility] Comment on above: Order Comment: Order Added by Discern Expert. Performed By: #### 2 271164, 56861429, 4709310, 5127194, 0670921, 2935863 #### [facility] [address] [place] [address] Monocytes/Leukocytes Auto (Bld) [Pure # fraction] 0.4 E9/L Normal 0.2-1.0 [facility] Comment on above: Order Comment: Order Added by Discern Expert. Performed By: #### 2 801360, 18806481, 6629427, 4993857, 5165080, 8327582 #### [facility] [address] [place] [address] Neutrophils/100 WBC (Bld) 62.5 % Normal 36.0-75.0 [facility] Comment on above: Order Comment: Order Added by Discern Expert. Performed By: #### 2 638063, 58110803, 4258925, 8070824, 4930253, 6239781 #### [facility] [address] [place] [address] Neutrophils/Leukocyte s Auto (Bld) [Pure # fraction] 2.7 E9/L Normal 2.0-7.5 [facility] Comment on above: Order Comment: Order Added by Discern Expert. Performed By: #### 2 647815, 77080271, 9925674, 2553776, 2992585, 8868002 #### [facility] [address] [place] [address] BMPon 06-30-2023 Creatinine [Mass/Vol] 0.8 mg/dL Normal 0.5-1.3 [facility] Comment on above: Performed By: #### 2 668203, 80288278, 0388419, 0401733, 3757244, 1382806 #### [facility] [address] [place] [address] Urea nitrogen [Mass/Vol] 12 mg/dL Normal 5-21 [facility] Comment on above: Performed By: #### 2 918549, 30962791, 4474424, 4765982, 4875792, 9954290 #### [facility] [address] [place] [address] Urea nitrogen/Creatinine [Mass ratio] 15 No Units Normal 10-20 [facility] Comment on above: Performed By: #### 2 784390, 62167425, 4992900, 3691474, 3850352, 0952686 #### [facility] [address] [place] [address] Anion gap [Moles/Vol] 13 mmol/L Normal 6-16 [facility] Comment on above: Performed By: #### 2 713364, 13577754, 1676091, 1688045, 9055247, 4401013 #### [facility] [address] [place] [address] Calcium [Mass/Vol] 9.5 mg/dL Normal 8.9-11.1 [facility] Comment on above: Performed By: #### 2 680130, 95984278, 3988751, 7553447, 5643952, 6241855 #### [facility] [address] [place] [address] Chloride [Moles/Vol] 103 mmol/L Normal 101-111 [facility] Comment on above: Performed By: #### 2 310498, 06683787, 2496809, 7694227, 4453391, 3017792 #### [facility] [address] [place] [address] CO2 [Moles/Vol] 27 mmol/L Normal 21-31 [facility] Comment on above: Performed By: #### 2 683254, 56606294, 3029373, 7989076, 9369090, 0422881 #### [facility] [address] [place] [address] Glucose [Mass/Vol] 110 mg/dL Normal 55-199 [facility] Comment on above: Result Comment: If t his glucose result represents a fasting glucose, interpretation should refer to the following reference range: 55-99 mg/dL Performed By: #### 2 630261, 07146910, 5542884, 9107284, 1840412, 2132005 #### [facility] [address] [place] [address] Potassium [Moles/Vol] 4.1 mmol/L Normal 3.5-5.3 [facility] Comment on above: Performed By: #### 2 429122, 68331154, 4621452, 9277532, 0277362, 9080064 #### [facility] [address] [place] [address] Sodium [Moles/Vol] 139 mmol/L Normal 135-145 [facility] Comment on above: Performed By: #### 2 945603, 97744636, 6443451, 1924712, 6300236, 8390056 #### [facility] [address] [place] [address] CBC w/ Auto Diffon 3 Erythrocyte distribution width (RBC) [Ratio] 13.7 % Normal 10.9-14.2 [facility] Comment on above: Performed By: #### 2 625206, 06783330, 7861137, 2621572, 0078171, 0165590 #### [facility] [address] [place] [address] Hematocrit (Bld) [Volume fraction] 38.0 % Normal 34.0-46.0 [facility] Comment on above: Performed By: #### 2 591904, 65001489, 1349526, 9661786, 6545957, 6920324 #### [facility] [address] [place] [address] Hemoglobin (Bld) [Mass/Vol] 12.5 g/dL Normal 12.0-16.0 [facility] Comment on above: Performed By: #### 2 836185, 09145197, 1252805, 4116883, 8926027, 5730455 #### [facility] [address] [place] [address] MCH (RBC) [Entitic mass] 29.9 pg Normal 27.0-34.0 [facility] Comment on above: Performed By: #### 2 238043, 18278966, 3225535, 2584450, 2407361, 8751525 #### [facility] [address] [place] [address] MCHC (RBC) [Mass/Vol] 32.9 g/dL Normal 31.4-36.0 [facility] Comment on above: Performed By: #### 2 001284, 07780932, 6374113, 1452121, 4568274, 1301259 #### [facility] [address] [place] [address] MCV (RBC) [Entitic vol] 90.9 fL Normal 80.0-100.0 [facility] Comment on above: Performed By: #### 2 567358, 25413155, 5847021, 8001201, 2719365, 1586898 #### [facility] [address] [place] [address] Platelet mean volume (Bld) [Entitic vol] 8.7 fL Normal 6.4-10.8 [facility] Comment on above: Performed By: #### 2 411790, 19985792, 0185575, 2895505, 4524516, 1118538 #### [facility] [address] [place] [address] Platelets (Bld) [#/Vol] 184.0 E9/L Normal 150.0-500.0 [facility] Comment on above: Performed By: #### 2 812931, 64578127, 8063495, 6299730, 5710722, 1502720 #### [facility] [address] [place] [address] RBC (Bld) [#/Vol] 4.2 E12/L Low 4.3-5.9 [facility] Comment on above: Performed By: #### 2 335027, 52942599, 2007237, 0002251, 7505131, 9409002 #### [facility] [address] [place] [address] WBC corrected for nucl RBC Auto (Bld) [#/Vol] 4.4 E9/L Normal 4.0-11.0 [facility] Comment on above: Performed By: #### 2 072012, 01282711, 5346572, 1576897, 9990061, 1669435 #### [facility] [address] [place] [address] CHEMISTRYOrdered By: SYSTEM SYSTEM on 06-30-2023 Albumin [...] 77 mL/min/1.73 m2 Normal >=59mL/min/1 .73 m2 [facility] Chem S Comment on above: Interpretive Data: [...] Treatmenton 06-14 Consent for Treatment [id number] .[id number] Normal [facility] Consent for Treatment [id number] .00TIFF [facility] HEMATOLOGYOrdered By: SYSTEM SYSTEM on 06-30-2023 Basophils/100 WBC (Bld) 0.8 % Normal 0.0 - 2.0 % [facility] Basophils/Leukocytes Auto (Bld) [Pure # fraction] 0.0 E9/L Normal 0.0 - 0.2 E9/L [facility] Eosinophils/100 WBC (Bld) 0.2 % Normal 0.0 - 8.0 % [facility] Eosinophils/Leukocyte s Auto (Bld) [Pure # fraction] 0.0 E9/L Normal 0.0 - 0.5 E9/L [facility] Lymphocytes/100 WBC (Bld) 26.7 % Normal 14.0 - 50.0 % [facility] Lymphocytes/Leukocyte s Auto (Bld) [Pure # fraction] 1.2 E9/L Normal 1.0 - 4.0 E9/L [facility] Monocytes/100 WBC (Bld) 9.8 % Normal 4.0 - 14.0 % [facility] Monocytes/Leukocytes Auto (Bld) [Pure # fraction] 0.4 E9/L Normal 0.2 - 1.0 E9/L [facility] Neutrophils/100 WBC (Bld) 62.5 % Normal 36.0 - 75.0 % [facility] Neutrophils/Leukocyte s Auto (Bld) [Pure # fraction] 2.7 E9/L Normal 2.0 - 7.5 E9/L [facility] HEMATOLOGYOrdered By: Lan Eastman on 06-30-2023 Erythrocyte distribution width (RBC) [Ratio] 13.7 % Normal 10.9 - 14.2 % [facility] Hematocrit (Bld) [Volume fraction] 38.0 % Normal 34.0 - 46.0 % [facility] Hemoglobin (Bld) [Mass/Vol] 12.5 g/dL Normal 12.0 - 16.0 gm/dL [facility] MCH (RBC) [Entitic mass] 29.9 pg Normal 27.0 - 34.0 pg [facility] MCHC (RBC) [Mass/Vol] 32.9 g/dL Normal 31.4 - 36.0 gm/dL [facility] MCV (RBC) [Entitic vol] 90.9 fL Normal 80.0 - 100.0 fL [facility] Platelet mean volume (Bld) [Entitic vol] 8.7 fL Normal 6.4 - 10.8 fL [facility] Platelets (Bld) [#/Vol] 184.0 E9/L Normal 150.0 - 500.0 E9/L [facility] RBC (Bld) [#/Vol] 4.2 E12/L Low 4.3 - 5.9 E12/L [facility] WBC corrected for nucl RBC Auto (Bld) [#/Vol] 4.4 E9/L Normal 4.0 - 11.0 E9/L [facility] Hep Func Panelon 06-30-2023 Bilirubin.indirect [Mass or moles/Vol] UTC Abnormal 0.1-0.9 [facility] Comment on above: Result Comment: Resu lt verified by Discern Rule. Performed result UTC (Unable to Calculate) was sent as an Alpha code due the inability to calculate a valid numeric value. Performed By: #### 2 548563, 19427318, 3745149, 3208933, 3210236, 8040634 #### [facility] [address] [place] [address] Albumin [Mass/Vol] 3.8 g/dL Normal 3.3-5.0 [facility] Comment on above: Performed By: #### 2 981751, 34064221, 1947025, 7113739, 8878400, 3332241 #### [facility] [address] [place] [address] Albumin/Globulin (S) [Mass conc ratio] 1.3 Normal 1.1-2.2 [facility] Comment on above: Performed By: #### 2 707324, 74638124, 0312928, 7434110, 6956776, 4227874 #### [facility] [address] [place] [address] ALP [Catalytic activity/Vol] 56 Int._Unit/L Normal 21-98 [facility] Comment on above: Performed By: #### 2 330620, 51989750, 8054994, 9913669, 4338291, 8872353 #### [facility] [address] [place] [address] ALT No additional P-5'-P [Catalytic activity/Vol] 50 Int._Unit/L High 6-46 [facility] Comment on above: Performed By: #### 2 900582, 42321469, 4596802, 8395522, 7840257, 7282474 #### [facility] [address] [place] [address]92 AST [Catalytic activity/Vol] 45 Int._Unit/L High 5-43 [facility] Comment on above: Performed By: #### 2 959245, 65367907, 9474436, 8402809, 6937900, 0619050 #### [facility] [address] [place] [address] Bilirubin [Mass/Vol] 0.5 mg/dL Normal 0.0-1.1 [facility] Comment on above: Performed By: #### 2 468231, 61863194, 7382836, 3374207, 9795926, 5100915 #### [facility] [address] [place] [address] Globulin (S) [Mass/Vol] 3.0 g/dL Normal 1.4-4.0 [facility] Comment on above: Performed By: #### 2 320331, 55105425, 3753239, 4416119, 6285621, 8510694 #### [facility] [address] [place] [address] Protein [Mass/Vol] 6.8 g/dL Normal 6.0-7.8 [facility] Comment on above: Performed By: #### 2 701535, 36579757, 6221689, 6964073, 7197989, 5181919 #### [facility] [address] [place] [address] Bilirubin.direct [Mass/Vol] mg/dL Normal 0.1-0.4 [facility] Comment on above: Performed By: #### 2 355354, 63212841, 5288882, 2433777, 5847646, 2294278 #### [facility] [address] [place] [address] Lipase Levelon 06-30-2023 Lipase [Catalytic activity/Vol] 31 U/L Normal 13-58 [facility] Comment on above: Performed By: #### 2 248894, 69720500, 0834231, 2758557, 8966612, 7362514 #### [facility] [address] [place] [address] UA With Cult Reflexon 2022 Bacteria LM Ql (Urine sed) TRACE Normal Trace [facility] Comment on above: Performed By: #### 2 166768, 65567070, 3760535, 3716055, 2214308, 9047619 #### [facility] [address] [place] [address] Bilirubin Ql (U) Negative Normal Negative [facility] Comment on above: Performed By: #### 2 [id number], [id number], [id number], 7540050, [id number], [id number] #### [facility] [address] [place] [address] Clarity (U) CLEAR Normal Clear [facility] Comment on above: Performed By: #### 2 [id number], [id number], 1120537, 4387227, 8463429, [id number] #### [facility] [address] [place] [address] Color (U) YELLOW Normal Yellow [facility] Comment on above: Performed By: #### 2 853742, [id number], 4912905, 3926804, 6825619, [id number] #### [facility] [address] [place] [address] Epithelial cells.squamous LM.HPF (Urine sed) [#/Area] 0-2 Normal 0-2 [facility] Comment on above: Performed By: #### 2 188685, [id number], 1266224, 0016293, 4406828, 5329725 #### [facility] [address] [place] [address] Glucose Test strip (U) [Mass/Vol] Negative Normal Negative [facility] Comment on above: Performed By: #### 2 213530, [id number], 0887133, 9261355, 2430585, 4031676 #### [facility] [address] [place] [address] Hemoglobin Ql (U) TRACE Abnormal Negative [facility] Comment on above: Performed By: #### 2 686367, [id number], 1669640, 5457049, 2323356, 5570239 #### [facility] [address] [place] [address] Ketones (U) [Mass/Vol] Negative Normal Negative [facility] Comment on above: Performed By: #### 2 567221, [id number], 8927807, 6743574, 4975453, 1200172 #### [facility] [address] [place] [address] [place].plasma/Lithiu m.RBC (Bld) [Mass ratio] 0-3 Normal 0-3 [facility] Comment on above: Performed By: #### 2 685423, [id number], 7598131, 5799827, 1436826, 2111615 #### [facility] [address] [place] [address] Nitrite Ql (U) Negative Normal Negative [facility] Comment on above: Performed By: #### 2 161350, 42943055, 4757105, 3007675, 9934979, 5825321 #### [facility] [address] [place] [address] pH (U) 6.5 [pH] Invalid Interpretation Code 5.0-9.0 [facility] Comment on above: Performed By: #### 2 335127, [id number], 5240032, 2696123, 9854979, 5475978 #### [facility] [address] [place] [address] Protein (U) [Mass/Vol] Negative Normal Negative [facility] Comment on above: Performed By: #### 2 540031, [id number], 0186706, 8431826, 4992061, 0041818 #### [facility] [address] [place] [address] Specific gravity (U) [Rel density] <=1.005 Invalid Interpretation Code 1.005-1.030 [facility] Comment on above: Performed By: #### 2 921719, [id number], 5647433, 1160298, 1736453, 2897793 #### [facility] [address] [place] [address] Type of Urine collection method Clean Catch Normal [facility] Comment on above: Performed By: #### 2 711730, 64754863, 1867640, 7777416, 8969306, 1143178 #### [facility] [address] [place] [address] Urobilinogen Qn (U) 0.2 {Judith'U}/dL Normal 0.0-1.0 [facility] Comment on above: Performed By: #### 2 415204, 61961410, 4934822, 3037865, 4952478, 3356540 #### [facility] [address] [place] [address] WBC Auto Ql (U) Negative Normal Negative [facility] Comment on above: Performed By: #### 2 805707, 91251952, 3818884, 1538385, 1480963, 8387118 #### [facility] [address] [place] [address] WBC LM.HPF (Urine sed) [#/Area] 0-5 Normal 0-5 [facility] Comment on above: Performed By: #### 2 191874, 55753350, 7125681, 4625613, 4945494, 7303320 #### [facility] [address] [place] [address] URINALYSISOrdered By: Brian Davis on 06-30-2023 Bacteria [...] PM) Normal Negative [facility] UA Auto SS [place].plasma/Lithiu m.RBC (Bld) [Mass ratio] 0-3 /HPF Normal 0-3/HPF [...] [facility] UA Auto SS Urobilinogen Qn (U) 0.3210545 {Judith'U}/dL Normal 0.0 - 1.0 EU/dL [facility] UA Auto SS WBC Auto Ql (U) Negative (06/30/23 8:00 PM) Normal Negative [facility] UA Auto SS WBC LM.HPF (Urine sed) [#/Area] 0-5 /HPF Normal 0-5/HPF [facility] UA Auto SS eGFRon 06-30-2023 GFR/1.73 sq M.predicted among non-blacks MDRD (S/P/Bld) [Vol rate/Area] 77 mL/min/1.73 m2 Normal >=59 [facility] Comment on above: Order Comment: Order added by Discern Expert. Result Comment: Varnish Finisher luis kidney disease could be indicated at eGFR's of less than 60 mL/min/1.73m2. Kidney failure is indicated at less than 15 mL/min/1.73m2. Performed By: #### 2 772912, [id number], 4025211, 0098809, 4078157, 8102407 #### [facility] [address] [place] [address] URINALYSISOrdered By: Lan Eastman on 01-28-2023 Bilirubin [...] PM) Normal Negative [facility] UA Auto SS [place].plasma/Lithiu m.RBC (Bld) [Mass ratio] 0-3 /HPF Normal 0-3/HPF [...] [facility] UA Auto SS Urobilinogen Qn (U) 1.1323880 {Judith'U}/dL Normal 0.0 - 1.0 EU/dL [facility] UA Auto SS WBC Auto Ql (U) Negative (01/28/23 11:04 PM) Normal Negative [facility] UA Auto SS WBC LM.HPF (Urine sed) [#/Area] 0-5 /HPF Normal 0-5/HPF [facility] UA Auto SS Q - SARS CoV2 COVID 19 Ab Ig Clarence 08-20-2021 SARS-CoV-2 (COVID-19) Ab IA Qn 25.84 index High <1.00 [facility] Comment on above: Order Comment: [facility] performed at: [facility], [facility] [place] , [address] [place] [address], [id number], Interventional Sale Consultant: Ab Vincent MD [facility] Collection Date/Time: [facility] [...] providers and patients using the following websites: [email or web address] Healthcare Providers: For additional information please refer to: http://education.[employer]/faq/CPH679 (This link is being provided for informational/educational purposes only.) This test has been authorized by the FDA under an Emergency Use Authorization (EUA) for use by authorized laboratories. The FDA authorized labeling is available on the [employer] website: www.Bio.[employer]/Covid19. Performed By: #### 3 [id number] #### [facility] Default [address] [place] [address] Reference Laboratory Testing Ordered By: Generated DomainUser on 08-12-2021 SARS-CoV-2 (COVID-19) RNA JORDAN+probe Ql (Resp) Not detected Invalid Interpretation Code Not Detected [facility] Comment on above: Result Comment: This nucleic acid amplification test was developed and its performance characteristics determined by [employer]. Nucleic acid amplification tests include RT-PCR and [...] detected) result in this assay. Performed at: [address] [id number] PhD Emily Fraser Vital Signs Date Time Vital Sign Value Performing Clinician Mickiei joanay 01-07-2025 15:47-0400 Body height 160 cm Hannah Brian MD Work Phone: [facility] 01-07-2025 15:47-0400 Body mass index (BMI) [Ratio] 23.95 kg/m2 Hannah Brian MD Work Phone: [facility] 01-07-2025 15:47-0400 Body temperature 97.9 [degF] Hannah Brian MD Work Phone: [facility] 01-07-2025 15:47-0400 Body weight 61.33 kg Hannah Brian MD Work Phone: [facility] 01-07-2025 15:47-0400 Diastolic blood pressure 70 mm[Hg] Hannah Brian MD Work Phone: [facility] 01-07-2025 15:47-0400 Heart rate 70 /min Hannah Brian MD Work Phone: [facility] 01-07-2025 15:47-0400 SaO2% (BldA) [Mass fraction] 97 % Hannah Brian MD Work Phone: [facility] 01-07-2025 15:47-0400 Systolic blood pressure 120 mm[Hg] Hannah Brian MD Work Phone: [facility] 12-17-2024 15:23-0400 Body height 160 cm Hannah Brian MD Work Phone: [facility] 12-17-2024 15:23-0400 Body mass index (BMI) [Ratio] 24.09 kg/m2 Hannah Brian MD Work Phone: [facility] 12-17-2024 15:23-0400 Body temperature 97.5 [degF] Hannah Brian MD Work Phone: [facility] 12-17-2024 15:23-0400 Body weight 61.69 kg Hannah Brian MD Work Phone: [facility] 12-17-2024 15:23-0400 Diastolic blood pressure 80 mm[Hg] Hannah Brian MD Work Phone: [facility] 12-17-2024 15:23-0400 Heart rate 74 /min Hannah Brian MD Work Phone: [facility] 12-17-2024 15:23-0400 SaO2% (BldA) [Mass fraction] 99 % Hannah Brian MD Work Phone: [facility] 12-17-2024 15:23-0400 Systolic blood pressure 128 mm[Hg] Hannah Brian MD Work Phone: [facility] 11-25-2024 11:32-0400 Body height 160 cm Hannah Brian MD Work Phone: [facility] 11-25-2024 11:32-0400 Body mass index (BMI) [Ratio] 24.45 kg/m2 Hannah Brian MD Work Phone: [facility] 11-25-2024 11:32-0400 Body temperature 97.81 [degF] Hannah Brian MD Work Phone: [facility] 11-25-2024 11:32-0400 Body weight 62.6 kg Hannah Brian MD Work Phone: [facility] 11-25-2024 11:32-0400 Diastolic blood pressure 60 mm[Hg] Hannah Brian MD Work Phone: [facility] 11-25-2024 11:32-0400 Heart rate 75 /min Hannah Brain MD Work Phone: [facility] 11-25-2024 11:32-0400 SaO2% (BldA) [Mass fraction] 96 % Hannah Brian MD Work Phone: [facility] 11-25-2024 11:32-0400 Systolic blood pressure 124 mm[Hg] Hannah Brian MD Work Phone: [facility] 11-18-2024 11:43-0400 Body height 160 cm Hannah Brian MD Work Phone: [facility] 11-18-2024 11:43-0400 Body mass index (BMI) [Ratio] 23.91 kg/m2 Hannah Brian MD Work Phone: [facility] 11-18-2024 11:43-0400 Body temperature 97.81 [degF] Hannah Brian MD Work Phone: [facility] 11-18-2024 11:43-0400 Body weight 61.24 kg Hannah Brian MD Work Phone: [facility] 11-18-2024 11:43-0400 Diastolic blood pressure 60 mm[Hg] Hannah Brian MD Work Phone: [facility] 11-18-2024 11:43-0400 Heart rate 70 /min Hnanah Brian MD Work Phone: [facility] 11-18-2024 11:43-0400 SaO2% (BldA) [Mass fraction] 98 % Hannah Brian MD Work Phone: [facility] 11-18-2024 11:43-0400 Systolic blood pressure 120 mm[Hg] Hannah Brian MD Work Phone: [facility] 10-08-2024 12:58-0500 Body height 160 cm Sherlyn Shine PA Work Phone: [facility] 10-08-2024 12:58-0500 Body mass index (BMI) [Ratio] 23.91 kg/m2 Sherlyn Shine PA Work Phone: [facility] 10-08-2024 12:58-0500 Body temperature 97.9 [degF] Sherlyn Shine PA Work Phone: [facility] 10-08-2024 12:58-0500 Body weight 61.24 kg Sherlyn Shine PA Work Phone: [facility] 10-08-2024 12:58-0500 Diastolic blood pressure 70 mm[Hg] Sherlyn Shine PA Work Phone: [facility] 10-08-2024 12:58-0500 Heart rate 70 /min Sherlyn Shine PA Work Phone: [facility] 10-08-2024 12:58-0500 SaO2% (BldA) [Mass fraction] 97 % Sherlyn Shine PA Work Phone: [facility] 10-08-2024 12:58-0500 Systolic blood pressure 120 mm[Hg] Sherlyn Shine PA Work Phone: [facility] 08-12-2024 16:09-0500 Body height 161.3 cm Shelley Braunnamiller PROJECT PROGRAM MANAGER Work Phone: [facility] 08-12-2024 16:09-0500 Body mass index (BMI) [Ratio] 22.39 kg/m2 Shelley Donnamiller PROJECT PROGRAM MANAGER Work Phone: [facility] 08-12-2024 16:09-0500 Body temperature 97.7 [degF] Shelley Donnamiller PROJECT PROGRAM MANAGER Work Phone: [facility] 08-12-2024 16:09-0500 Body weight 58.24 kg Shelley Braunnamiller PROJECT PROGRAM MANAGER Work Phone: [facility] 08-12-2024 16:09-0500 Diastolic blood pressure 70 mm[Hg] Shelley Donnamiller PROJECT PROGRAM MANAGER Work Phone: [facility] 08-12-2024 16:09-0500 Heart rate 73 /min Shelley Kumariller PROJECT PROGRAM MANAGER Work Phone: [facility] 08-12-2024 16:09-0500 SaO2% (BldA) [Mass fraction] 99 % Shelely Kumariller PROJECT PROGRAM MANAGER Work Phone: [facility] 08-12-2024 16:09-0500 Systolic blood pressure 124 mm[Hg] Shelley Donnamiller PROJECT PROGRAM MANAGER Work Phone: [facility] 08-05-2024 15:19-0500 Body height 161.3 cm Rodolfo Boo DO Work Phone: [facility] 08-05-2024 15:19-0500 Body mass index (BMI) [Ratio] 21.8 kg/m2 Rodolfo Boo DO Work Phone: [facility] 08-05-2024 15:19-0500 Body weight 56.7 kg Rodolfo Boo DO Work Phone: [facility] 08-05-2024 15:19-0500 Diastolic blood pressure 84 mm[Hg] Rodolfo Boo DO Work Phone: [facility] 08-05-2024 15:19-0500 Systolic blood pressure 130 mm[Hg] Rodolfo Boo DO Work Phone: [facility] 07-01-2024 15:35-0500 Body height 165.1 cm Sherlyn Shine PA Work Phone: [facility] 07-01-2024 15:35-0500 Body mass index (BMI) [Ratio] 20.93 kg/m2 Sherlyn Shine PA Work Phone: [facility] 07-01-2024 15:35-0500 Body temperature 97.7 [degF] Sherlyn Shine PA Work Phone: [facility] 07-01-2024 15:35-0500 Body weight 57.06 kg Sherlyn Shine PA Work Phone: [facility] 07-01-2024 15:35-0500 Diastolic blood pressure 80 mm[Hg] Sherlyn Shine PA Work Phone: [facility] 07-01-2024 15:35-0500 Heart rate 86 /min Sherlyn Shine PA Work Phone: [facility] 07-01-2024 15:35-0500 SaO2% (BldA) [Mass fraction] 98 % Sherlyn Shine PA Work Phone: [facility] 07-01-2024 15:35-0500 Systolic blood pressure 120 mm[Hg] Sherlyn Shine PA Work Phone: [facility] 06-27-2024 11:13-0500 Body mass index (BMI) [Ratio] 19.97 kg/m2 Raphael Goldsmith MD Work Phone: [facility] 06-27-2024 11:13-0500 Body temperature 96.6 [degF] Raphael Goldsmith MD Work Phone: [facility] 06-27-2024 11:13-0500 Body weight 54.43 kg Raphael Goldsmith MD Work Phone: [facility] 06-27-2024 11:13-0500 Diastolic blood pressure 60 mm[Hg] Raphael Goldsmith MD Work Phone: [facility] 06-27-2024 11:13-0500 Heart rate 83 /min Raphael Goldsmith MD Work Phone: [facility] 06-27-2024 11:13-0500 Systolic blood pressure 149 mm[Hg] Raphael Goldsmith MD Work Phone: [facility] 11-22-2023 20:52-0400 Body temperature 97.7 [degF] Jayson Brodie [facility] 11-22-2023 20:52-0400 Diastolic blood pressure 80 mm[Hg] Jayson Brodie [facility] 11-22-2023 20:52-0400 Heart rate 60 /min Jayson Brodie [facility] 11-22-2023 20:52-0400 Respiratory rate 17 /min Jayson Brodie [facility] 11-22-2023 20:52-0400 SaO2% (BldA) [Mass fraction] 100 % Jayson Brodie [facility] 11-22-2023 20:52-0400 Systolic blood pressure 147 mm[Hg] Jayson Brodie [facility] 11-22-2023 18:32-0400 Heart rate 87 /min Jayson Brodie [facility] 11-22-2023 18:32-0400 Respiratory rate 18 /min Jayson Brodie [facility] 11-22-2023 18:32-0400 SaO2% (BldA) [Mass fraction] 98 % Jayson Brodie [facility] 11-22-2023 17:50-0400 Diastolic blood pressure 80 mm[Hg] Jayson Brodie [facility] 11-22-2023 17:50-0400 Heart rate 68 /min Jayson Brodie [facility] 11-22-2023 17:50-0400 Respiratory rate 18 /min Jayson Brodie [facility] 11-22-2023 17:50-0400 SaO2% (BldA) [Mass fraction] 98 % Jayson Brodie [facility] 11-22-2023 17:50-0400 Systolic blood pressure 134 mm[Hg] Jyason Brodie [facility] 11-22-2023 16:24-0400 Body temperature 96.8 [degF] Jayson Brodie [facility] 11-22-2023 16:24-0400 Diastolic blood pressure 68 mm[Hg] Jayson Brodie [facility] 11-22-2023 16:24-0400 Systolic blood pressure 131 mm[Hg] Jayson Brodie [facility] 10-05-2023 21:54-0500 Diastolic blood pressure 81 mm[Hg] Kaylinn Dokken [facility] 10-05-2023 21:54-0500 Heart rate 75 /min Kaylinn Dokken [facility] 10-05-2023 21:54-0500 Respiratory rate 19 /min Kaylinn Dokken [facility] 10-05-2023 21:54-0500 SaO2% (BldA) [Mass fraction] 100 % Kaylinn Dokken [facility] 10-05-2023 21:54-0500 Systolic blood pressure 144 mm[Hg] Lisylinn Dokken [facility] 10-05-2023 18:04-0500 Body temperature 97.7 [degF] Lisylinn Dokken [facility] 10-05-2023 18:04-0500 Diastolic blood pressure 78 mm[Hg] Lisylinn Dokken [facility] 10-05-2023 18:04-0500 Heart rate 95 /min Caitlyninn Dokken [facility] 10-05-2023 18:04-0500 Respiratory rate 22 /min Lisylinn Dokken [facility] 10-05-2023 18:04-0500 SaO2% (BldA) [Mass fraction] 100 % Caitlyninn Dokken [facility] 10-05-2023 18:04-0500 Systolic blood pressure 131 mm[Hg] Caitlyninn Dokken [facility] 09-26-2023 09:13-0500 Body height 165.1 cm Ana Schertz MATERIALS BRANCH CHIEF.JUNIOR BUSINESS ANALYST Work Phone: [facility] 09-26-2023 09:13-0500 Body weight 50.8 kg Ana Schertz MATERIALS BRANCH CHIEF.JUNIOR BUSINESS ANALYST Work Phone: [facility] 09-26-2023 09:13-0500 Diastolic blood pressure 57 mm[Hg] Ana Schertz MATERIALS BRANCH CHIEF.JUNIOR BUSINESS ANALYST Work Phone: [facility] 09-26-2023 09:13-0500 Heart rate 72 /min Ana Schertz MATERIALS BRANCH CHIEF.JUNIOR BUSINESS ANALYST Work Phone: [facility] 09-26-2023 09:13-0500 Respiratory rate 20 /min Ana Schertz MATERIALS BRANCH CHIEF.JUNIOR BUSINESS ANALYST Work Phone: [facility] 09-26-2023 09:13-0500 SaO2% (BldA) [Mass fraction] 98 % Ana Rivas MATERIALS BRANCH CHIEF.JUNIOR BUSINESS ANALYST Work Phone: [facility] 09-26-2023 09:13-0500 Systolic blood pressure 118 mm[Hg] Ana Rivas MATERIALS BRANCH CHIEF.JUNIOR BUSINESS ANALYST Work Phone: [facility] 09-18-2023 17:51-0500 Body height 165.1 cm Peggy Nazario MD Work Phone: [facility] 09-18-2023 17:51-0500 Body mass index (BMI) [Ratio] 19.34 kg/m2 Peggy Nazario MD Work Phone: [facility] 09-18-2023 17:51-0500 Body temperature 98.01 [degF] Peggy Nazario MD Work Phone: [facility] 09-18-2023 17:51-0500 Body weight 52.71 kg Peggy Nazario MD Work Phone: [facility] 09-18-2023 17:51-0500 Diastolic blood pressure 66 mm[Hg] Peggy Nazario MD Work Phone: [facility] 09-18-2023 17:51-0500 Heart rate 75 /min Peggy Nazario MD Work Phone: [facility] 09-18-2023 17:51-0500 SaO2% (BldA) [Mass fraction] 99 % Peggy Nazario MD Work Phone: [facility] 09-18-2023 17:51-0500 Systolic blood pressure 136 mm[Hg] Peggy Nazario MD Work Phone: [facility] 09-17-2023 06:00-0500 Diastolic blood pressure 60 mm[Hg] Parveen Ayers [facility] 09-17-2023 06:00-0500 Heart rate 61 /min Parveen Ayers [facility] 09-17-2023 06:00-0500 Mean blood pressure 79 mm[Hg] Parveen Armen [facility] 09-17-2023 06:00-0500 Respiratory rate 11 /min Parveen Armen [facility] 09-17-2023 06:00-0500 SaO2% (BldA) [Mass fraction] 100 % Parveen Armen [facility] 09-17-2023 06:00-0500 Systolic blood pressure 118 mm[Hg] Parveen Armen [facility] 09-17-2023 05:06-0500 Body temperature 96.98 [degF] Parveen Armen [facility] 09-17-2023 05:06-0500 Diastolic blood pressure 58 mm[Hg] Parveen Armen [facility] 09-17-2023 05:06-0500 gluc 79 mg/dL Parveen Armen [facility] 09-17-2023 05:06-0500 gluc Parveen Armen [facility] 09-17-2023 05:06-0500 Heart rate 85 /min Parveen Armen [facility] 09-17-2023 05:06-0500 Respiratory rate 20 /min Parveen Armen [facility] 09-17-2023 05:06-0500 SaO2% (BldA) [Mass fraction] 98 % Parveen Armen [facility] 09-17-2023 05:06-0500 Systolic blood pressure 140 mm[Hg] Parveen Armen [facility] 09-12-2023 06:38-0500 Diastolic blood pressure 93 mm[Hg] Parveen Armen [facility] 09-12-2023 06:38-0500 Heart rate 78 /min Parveen Armen [facility] 09-12-2023 06:38-0500 Mean blood pressure 109 mm[Hg] Parveen Armen [facility] 09-12-2023 06:38-0500 Respiratory rate 13 /min Parveen Armen [facility] 09-12-2023 06:38-0500 SaO2% (BldA) [Mass fraction] 98 % Parveen Armen [facility] 09-12-2023 06:38-0500 Systolic blood pressure 142 mm[Hg] Parveen Armen [facility] 09-12-2023 05:58-0500 Diastolic blood pressure 96 mm[Hg] Parveen Armen [facility] 09-12-2023 05:58-0500 Heart rate 55 /min Parveen Armen [facility] 09-12-2023 05:58-0500 Mean blood pressure 112 mm[Hg] Parveen Armen [facility] 09-12-2023 05:58-0500 Respiratory rate 16 /min Parveen Armen [facility] 09-12-2023 05:58-0500 SaO2% (BldA) [Mass fraction] 100 % Parveen Armen [facility] 09-12-2023 05:58-0500 Systolic blood pressure 144 mm[Hg] Parveen Armen [facility] 09-12-2023 04:56-0500 Diastolic blood pressure 77 mm[Hg] Parveen Armen [facility] 09-12-2023 04:56-0500 Heart rate 60 /min Parveen Armen [facility] 09-12-2023 04:56-0500 Mean blood pressure 94 mm[Hg] Parveen Armen [facility] 09-12-2023 04:56-0500 Respiratory rate 18 /min Parveen Armen [facility] 09-12-2023 04:56-0500 SaO2% (BldA) [Mass fraction] 100 % Parveen Armen [facility] 09-12-2023 04:56-0500 Systolic blood pressure 129 mm[Hg] Parveen Armen [facility] 09-12-2023 04:27-0500 gluc 96 mg/dL Parveen Armen [facility] 09-12-2023 04:27-0500 gluc Parveen Armen [facility] 09-12-2023 04:13-0500 Body temperature 96.98 [degF] Parveen Armen [facility] 09-12-2023 04:13-0500 Heart rate 83 /min Parveen Armen [facility] 09-12-2023 04:13-0500 Respiratory rate 16 /min Parveen Armen [facility] 08-11-2023 08:55-0500 Body height 165.1 cm Peggy Nazario MD Work Phone: [facility] 08-11-2023 08:55-0500 Body mass index (BMI) [Ratio] 19.44 kg/m2 Peggy Nazario MD Work Phone: [facility] 08-11-2023 08:55-0500 Body temperature 97.9 [degF] Peggy Nazario MD Work Phone: [facility] 08-11-2023 08:55-0500 Body weight 52.98 kg Peggy Nazario MD Work Phone: [facility] 08-11-2023 08:55-0500 Diastolic blood pressure 68 mm[Hg] Peggy Nazario MD Work Phone: [facility] 08-11-2023 08:55-0500 Heart rate 69 /min Peggy Nazario MD Work Phone: [facility] 08-11-2023 08:55-0500 SaO2% (BldA) [Mass fraction] 99 % Peggy Nazario MD Work Phone: [facility] 08-11-2023 08:55-0500 Systolic blood pressure 122 mm[Hg] Peggy Nazario MD Work Phone: [facility] 07-21-2023 06:46-0500 Blood Pressure Location Johan HENRIQUEZ [facility] 07-21-2023 06:46-0500 Diastolic blood pressure 57 mm[Hg] Johan HENRIQUEZ [facility] 07-21-2023 06:46-0500 Heart rate 81 /min Johan HENRIQUEZ [facility] 07-21-2023 06:46-0500 Respiratory rate 18 /min Johan HENRIQUEZ [facility] 07-21-2023 06:46-0500 SaO2% (BldA) [Mass fraction] 100 % Johan HENRIQUEZ [facility] 07-21-2023 06:46-0500 Systolic blood pressure 118 mm[Hg] Johan HENRIQUEZ [facility] 07-20-2023 09:56-0500 Blood Pressure Location Johan HENRIQUEZ [facility] 07-20-2023 09:56-0500 Diastolic blood pressure 52 mm[Hg] oJhan HENRIQUEZ [facility] 07-20-2023 09:56-0500 Heart rate 62 /min Johan HENRIQUEZ [facility] 07-20-2023 09:56-0500 SaO2% (BldA) [Mass fraction] 98 % Johan HENRIQUEZ [facility] 07-20-2023 09:56-0500 Systolic blood pressure 105 mm[Hg] Johan HENRIQUEZ [facility] 07-07-2023 12:38-0500 Diastolic blood pressure 59 mm[Hg] Jeff Cross [facility] 07-07-2023 12:38-0500 Heart rate 94 /min Jeff Tay [facility] 07-07-2023 12:38-0500 Respiratory rate 13 /min Jeff Tay [facility] 07-07-2023 12:38-0500 SaO2% (BldA) [Mass fraction] 94 % Jeff Tay [facility] 07-07-2023 12:38-0500 Systolic blood pressure 123 mm[Hg] Jeff Tay [facility] 07-07-2023 12:00-0500 Diastolic blood pressure 83 mm[Hg] Jeff Tay [facility] 07-07-2023 12:00-0500 Heart rate 102 /min Jeff Tay [facility] 07-07-2023 12:00-0500 Mean blood pressure 96 mm[Hg] Jeff Tay [facility] 07-07-2023 12:00-0500 Respiratory rate 17 /min Jeff Tay [facility] 07-07-2023 12:00-0500 SaO2% (BldA) [Mass fraction] 96 % Jeff Wadee [facility] 07-07-2023 11:34-0500 Diastolic blood pressure 73 mm[Hg] Jeff Tay [facility] 07-07-2023 11:34-0500 Heart rate 93 /min Jeff Wadee [facility] 07-07-2023 11:34-0500 Respiratory rate 18 /min Jeff Wadee [facility] 07-07-2023 11:34-0500 SaO2% (BldA) [Mass fraction] 94 % Jeff Tay [facility] 07-07-2023 11:34-0500 Systolic blood pressure 109 mm[Hg] Jeff Wadee [facility] 07-07-2023 09:52-0500 Heart rate 103 /min Jeff Wadee [facility] 07-07-2023 08:57-0500 Body temperature 97.88 [degF] Jeff Wadee [facility] 07-07-2023 08:57-0500 Heart rate 134 /min Jeff Tay [facility] 07-07-2023 08:57-0500 Respiratory rate 24 /min Jeff Tay [facility] 07-06-2023 14:03-0500 Hourly Rounding Ronobir ABDI [facility] 07-06-2023 14:03-0500 Promise to Return Ronobir ABDI [facility] 07-06-2023 13:34-0500 Hourly Rounding Ronobir ABDI [facility] 07-06-2023 13:00-0500 Hourly Rounding Ronobir ABDI [facility] 07-06-2023 13:00-0500 Promise to Return Ronobir ABDI [facility] 07-06-2023 12:07-0500 Promise to Return Ronobir ABDI [facility] 07-06-2023 12:00-0500 Blood Pressure Location Ronobir ABDI [facility] 07-06-2023 12:00-0500 Body temperature 98.06 [degF] Ronobir ABDI [facility] 07-06-2023 12:00-0500 Diastolic blood pressure 69 mm[Hg] Ronobir ABDI [facility] 07-06-2023 12:00-0500 Heart rate 78 /min Ronobir ABDI [facility] 07-06-2023 12:00-0500 Mean blood pressure 81 mm[Hg] Ronobir ABDI [facility] 07-06-2023 12:00-0500 SaO2% (BldA) [Mass fraction] 94 % Ronobir ABDI [facility] 07-06-2023 12:00-0500 Systolic blood pressure 105 mm[Hg] Ronobir ABDI [facility] 07-06-2023 10:00-0500 Diastolic blood pressure 66 mm[Hg] Ronobir ABDI [facility] 07-06-2023 10:00-0500 Heart rate 77 /min Ronobir ABDI [facility] 07-06-2023 10:00-0500 Mean blood pressure 78 mm[Hg] Ronobir ABDI [facility] 07-06-2023 10:00-0500 Systolic blood pressure 103 mm[Hg] Ronobir ABDI [facility] 07-06-2023 07:00-0500 Body temperature 97.7 [degF] Ronobir ABDI [facility] 07-06-2023 07:00-0500 Diastolic blood pressure 60 mm[Hg] Ronobir ABDI [facility] 07-06-2023 07:00-0500 SaO2% (BldA) [Mass fraction] 93 % Ronobir ABDI [facility] 07-06-2023 07:00-0500 Systolic blood pressure 97 mm[Hg] Ronobir ABDI [facility] 07-06-2023 00:18-0500 Body temperature 97.7 [degF] Ronobir ABDI [facility] 07-06-2023 00:18-0500 SaO2% (BldA) [Mass fraction] 93 % Ronobir ABDI [facility] 07-05-2023 22:10-0500 Mean blood pressure 79 mm[Hg] Ronobir ABDI [facility] 07-05-2023 16:03-0500 Mean blood pressure 88 mm[Hg] Ronobir ABDI [facility] 07-05-2023 11:18-0500 Mean blood pressure 77 mm[Hg] Ronobir ABDI [facility] 07-05-2023 11:18-0500 Body temperature 98.06 [degF] Ronobir ABDI [facility] 07-05-2023 09:59-0500 Mean blood pressure 86 mm[Hg] Ronobir ABDI [facility] 07-05-2023 09:58-0500 Body temperature 98.42 [degF] Ronobir ABDI [facility] 07-04-2023 19:23-0500 Body temperature 97.7 [degF] Ronobir ABDI [facility] 07-03-2023 18:22-0500 BP/Pulse Patient Position Ronobir ABDI [facility] 07-03-2023 14:00-0500 Respiratory rate 17 /min Ronobir ABDI [facility] 07-03-2023 06:46-0500 Respiratory rate 18 /min Ronobir ABDI [facility] 07-03-2023 06:45-0500 BP/Pulse Patient Position Ronobir ABDI [facility] 07-03-2023 04:30-0500 Respiratory rate 16 /min Ronobir ABDI [facility] 07-03-2023 02:45-0500 Heart rate 90 /min Ronobir ABDI [facility] 07-03-2023 02:30-0500 Respiratory rate 12 /min Ronobir ABDI [facility] 07-03-2023 02:15-0500 Respiratory rate 13 /min Ronobir ABDI [facility] 07-02-2023 21:27-0500 Heart rate 141 /min Ronobir ABDI [facility] 07-02-2023 21:27-0500 Respiratory rate 18 /min Ronobir ABDI [facility] 07-01-2023 00:30-0500 Diastolic blood pressure 76 mm[Hg] Kaylinn Dokken [facility] 07-01-2023 00:30-0500 Heart rate 102 /min Kaylinn Dokken [facility] 07-01-2023 00:30-0500 Mean blood pressure 82 mm[Hg] Kaylinn Dokken [facility] 07-01-2023 00:30-0500 Respiratory rate 18 /min Kaylinn Dokken [facility] 07-01-2023 00:30-0500 SaO2% (BldA) [Mass fraction] 95 % Kaylinn Dokken [facility] 07-01-2023 00:30-0500 Systolic blood pressure 93 mm[Hg] Kaylinn Dokken [facility] 06-30-2023 23:24-0500 Diastolic blood pressure 73 mm[Hg] Kaylinn Dokken [facility] 06-30-2023 23:24-0500 Heart rate 102 /min Kaylinn Dokken [facility] 06-30-2023 23:24-0500 Mean blood pressure 92 mm[Hg] Kaylinn Dokken [facility] 06-30-2023 23:24-0500 Respiratory rate 16 /min Kaylinn Dokken [facility] 06-30-2023 23:24-0500 SaO2% (BldA) [Mass fraction] 94 % Kaylinn Dokken [facility] 06-30-2023 23:24-0500 Systolic blood pressure 130 mm[Hg] Kaylinn Dokken [facility] 06-30-2023 22:30-0500 Body temperature 97.88 [degF] Kaylinn Dokken [facility] 06-30-2023 22:30-0500 Diastolic blood pressure 112 mm[Hg] Kaylinn Dokken [facility] 06-30-2023 22:30-0500 Heart rate 114 /min Kaylinn Dokken [facility] 06-30-2023 22:30-0500 Mean blood pressure 120 mm[Hg] Kaylinn Dokken [facility] 06-30-2023 22:30-0500 Respiratory rate 18 /min Kaylinn Dokken [facility] 06-30-2023 22:30-0500 SaO2% (BldA) [Mass fraction] 100 % Kaylinn Dokken [facility] 06-30-2023 22:30-0500 Systolic blood pressure 137 mm[Hg] Kaylinn Dokken [facility] 06-30-2023 19:33-0500 Body temperature 97.7 [degF] Kaylinn Dokken [facility] 06-30-2023 19:33-0500 Heart rate 123 /min Kaylinn Dokken [facility] 04-26-2023 15:19-0400 Blood Pressure Location Micheline BROOKS [facility] 04-26-2023 15:19-0400 Diastolic blood pressure 88 mm[Hg] Micheline BROOKS [facility] 04-26-2023 15:19-0400 Heart rate 80 /min Micheline BROOKS [facility] 04-26-2023 15:19-0400 Systolic blood pressure 139 mm[Hg] Micheline BROOKS [facility] 04-04-2023 16:30-0400 Diastolic blood pressure 51 mm[Hg] Jeff Cross [facility] 04-04-2023 16:30-0400 Heart rate 39 /min Jeff Wadee [facility] 04-04-2023 16:30-0400 Respiratory rate 14 /min Jeff Wadee [facility] 04-04-2023 16:30-0400 SaO2% (BldA) [Mass fraction] 99 % Jeff Cross [facility] 04-04-2023 16:30-0400 Systolic blood pressure 145 mm[Hg] Jeff Tay [facility] 04-04-2023 15:52-0400 Body temperature 98.06 [degF] Jeff Wadee [facility] 04-04-2023 15:52-0400 Diastolic blood pressure 81 mm[Hg] Jeff Wadee [facility] 04-04-2023 15:52-0400 Heart rate 66 /min Jeff Wadee [facility] 04-04-2023 15:52-0400 Respiratory rate 14 /min Jeff Wadee [facility] 04-04-2023 15:52-0400 SaO2% (BldA) [Mass fraction] 99 % Jeff Cross [facility] 04-04-2023 15:52-0400 Systolic blood pressure 161 mm[Hg] Jeff Cross [facility] 04-04-2023 14:52-0400 Diastolic blood pressure 79 mm[Hg] Jeff Cross [facility] 04-04-2023 14:52-0400 Heart rate 64 /min Jeff Cross [facility] 04-04-2023 14:52-0400 Respiratory rate 14 /min Jeff Cross [facility] 04-04-2023 14:52-0400 SaO2% (BldA) [Mass fraction] 100 % Jeff Cross [facility] 04-04-2023 14:52-0400 Systolic blood pressure 95 mm[Hg] Jeff Cross [facility] 04-04-2023 14:07-0400 Body temperature 98.06 [degF] Jeff Cross [facility] 04-04-2023 13:52-0400 Body temperature 98.24 [degF] Jeff Cross [facility] 04-04-2023 13:52-0400 Heart rate 107 /min Jeff Cross [facility] 01-28-2023 21:23-0400 Body temperature 97.7 [degF] [facility] 01-28-2023 21:23-0400 Diastolic blood pressure 78 mm[Hg] [facility] 01-28-2023 21:23-0400 Heart rate 82 /min [facility] 01-28-2023 21:23-0400 Respiratory rate 18 /min [facility] 01-28-2023 21:23-0400 SaO2% (BldA) [[facility] fraction] 97 [facility] 21:23-0400 Systolic blood pressure 125 mm[Hg] [facility] 09-01-2022 14:01-0500 Diastolic blood pressure 75 mm[Hg] Mohstacia Esequiel [facility] 09-01-2022 14:01-0500 Mean blood pressure 91 mm[Hg] Mohamed Esequiel [facility] 09-01-2022 14:01-0500 Systolic blood pressure 122 mm[Hg] Mohamed Esequiel [facility] 09-01-2022 13:48-0500 Blood Pressure Location Mohamed Esequiel [facility] 09-01-2022 13:48-0500 Diastolic blood pressure 79 mm[Hg] Mohamed Esequiel [facility] 09-01-2022 13:48-0500 Heart rate 60 /min Mohamed Esequiel [facility] 09-01-2022 13:48-0500 SaO2% (BldA) [Mass fraction] 98 % Mohamed Esequiel [facility] 09-01-2022 13:48-0500 Systolic blood pressure 149 mm[Hg] Mohamed Esequiel [facility] 06-13-2022 08:54-0400 Blood Pressure Location Mohamed Esequiel [facility] 06-13-2022 08:54-0400 Diastolic blood pressure 68 mm[Hg] Mohamed Esequiel [facility] 06-13-2022 08:54-0400 Heart rate 75 /min Mohamed Esequiel [facility] 06-13-2022 08:54-0400 SaO2% (BldA) [Mass fraction] 96 % Yennifer Iraheta [facility] 06-13-2022 08:54-0400 Systolic blood pressure 132 mm[Hg] Yennifer Iraheta [facility] 03-03-2022 09:59-0400 Blood Pressure Location CARMINA GARRISON [facility] 03-03-2022 09:59-0400 Diastolic blood pressure 89 mm[Hg] CARMINA GARRISON [facility] 03-03-2022 09:59-0400 Heart rate 77 /min CARMINA GARRISON [facility] 03-03-2022 09:59-0400 Systolic blood pressure 140 mm[Hg] CARMINA GARRISON [facility] [employer] 02-15-2022 13:17-0400 Body temperature 98.6 [degF] Jeff Cross [facility] 02-15-2022 13:17-0400 Diastolic blood pressure 62 mm[Hg] Jeff Cross [facility] 02-15-2022 13:17-0400 Heart rate 86 /min Jeff Cross [facility] 02-15-2022 13:17-0400 Respiratory rate 18 /min Jeff Cross [facility] 02-15-2022 13:17-0400 SaO2% (BldA) [Mass fraction] 99 % Jeff Cross [facility] 02-15-2022 13:17-0400 Systolic blood pressure 151 mm[Hg] Jeff Cross [facility] 12-24-2021 17:39-0400 Body temperature 97.7 [degF] Jeff Cross [facility] 12-24-2021 17:39-0400 Diastolic blood pressure 70 mm[Hg] Jeff Cross [facility] 12-24-2021 17:39-0400 Heart rate 81 /min Jeff Cross [facility] 12-24-2021 17:39-0400 Respiratory rate 15 /min Jeff Cross [facility] 12-24-2021 17:39-0400 SaO2% (BldA) [Mass fraction] 100 % Jeff Cross [facility] 12-24-2021 17:39-0400 Systolic blood pressure 163 mm[Hg] Jeff Cross [facility] Encounters Encounter Date Encounter Type Care Provider Facility Start: 01-15-2025 Evaluation and manag ement of inpatient [facility] Start: 01-14-2025 Evaluation and manag ement of inpatient [facility] Start: 01-14-2025 ambulatory [facility] Start: 01-14-2025 End: 01-15-2025 Evaluation and management of inpatient [facility] Start: 01-13-2025 End: 01-13-2025 Shira QUEZADA Comment on above: Anxiety Start: 01-07-2025 End: 01-07-2025 Office outpatient visit 25 minutes Hannah Brian MD Work Phone: [facility] QUEZADA Comment on above: Atrial fibrillation, persistent (HCC) (CMS/HCC) (Primary Dx); 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; Primary hypertension (CMS/HCC); Anxiety; Panic attack (CMS/HCC) Start: 01-07-2025 End: 01-07-2025 ambulatory HANNAH BRIAN Not Available Start: 01-07-2025 End: 01-07-2025 Shaggy Brian MD Work Phone: [facility] Start: 01-07-2025 End: 01-07-2025 Shaggy Brian MD Work Phone: [facility] Start: 12-23-2024 ambulatory [facility] Start: 12-17-2024 End: 12-17-2024 Office outpatient visit 15 minutes Hannah Brian MD Work Phone: [facility] Comment on above: Hematuria, unspecifi ed type (Primary Dx); Right flank pain; Dysuria; Urinary frequency Start: 12-17-2024 End: 12-17-2024 ambulatory HANNAH BRIAN Not Available Start: 12-17-2024 End: 12-17-2024 Shaggy Brian MD Work Phone: [facility] Start: 12-17-2024 End: 12-17-2024 Shaggy Brian MD Work Phone: [facility] Start: 12-16-2024 End: 12-17-2024 Refill Hannah Brian MD Work Phone: [facility] Comment on above: Anxiety Start: 12-13-2024 ambulatory [facility] Start: 11-29-2024 End: 11-29-2024 ambulatory [facility] Start: 11-25-2024 End: 11-25-2024 Shaggy Brian MD Work Phone: [facility] Start: 11-25-2024 End: 11-25-2024 Shaggy Dixongles MD Work Phone: [facility] Start: 11-25-2024 End: 11-25-2024 Office outpatient visit 25 minutes Hannah Brian MD Work Phone: [facility] Comment on above: Acute cough (Primary Dx); Bruising; assisted 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; Atrial fibrillation, persistent (HCC) (CMS/HCC); Primary hypertension (CMS/HCC); Cardiomyopathy, unspecified Start: 11-25-2024 End: 11-25-2024 ambulatory HANNAH BRIAN Not Available Start: 11-18-2024 End: 11-21-2024 External Result Encounter Hannah Brian MD Work Phone: [facility] External Department Unsolicited Start: 11-18-2024 End: 11-21-2024 External Result Encounter Hannah Brian MD Work Phone: [facility] External Department Unsolicited Start: 11-18-2024 End: 11-18-2024 Office outpatient visit 25 minutes Hannah Brian MD Work Phone: [facility] Comment on above: Acute cough (Primary Dx); Hematuria, unspecified type; 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; Atrial fibrillation, persistent (HCC) (CMS/HCC); Primary hypertension (CMS/HCC) Start: 11-18-2024 End: 11-18-2024 ambulatory HANNAH BRIAN Not Available Start: 11-15-2024 End: 11-18-2024 Refill Hannah Brian MD Work Phone: [facility] Comment on above: Anxiety Start: 10-22-2024 End: 10-22-2024 ambulatory [facility] Start: 10-08-2024 End: 10-08-2024 Bamboo flowsheet Sherlyn ABRAMS Work Phone: [facility] Start: 10-08-2024 End: 10-08-2024 Bamboo flowsheet Sherlyn ABRAMS Work Phone: [facility] Start: 10-08-2024 End: 10-08-2024 Office outpatient visit 25 minutes Sherlyn Shine PA Work Phone: [facility] Comment on above: Primary hypertension (CMS/HCC) (Primary Dx); Atrial fibrillation, persistent (HCC) (CMS/HCC); Atherosclerosis of aorta (CMS/HCC); Panic attack (CMS/HCC) Start: 10-08-2024 End: 10-08-2024 ambulatory SHERLYN SHINE Not Available Start: 09-20-2024 End: 09-20-2024 Telephone encounter Hannah Brian MD Work Phone: [facility] Comment on above: Med Refill Start: 08-20-2024 End: 08-20-2024 Refill Hannah Brian MD Work Phone: [facility] Comment on above: Anxiety Start: 08-12-2024 End: 08-12-2024 Office outpatient visit 25 minutes Shelley A Gabbyr PROJECT PROGRAM MANAGER Work Phone: [facility] Comment on above: Dysuria (Primary Dx) ; Urinary frequency; Atrial fibrillation, persistent (HCC) (CMS/HCC); assisted 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; BMI 22.0-22.9, adult Start: 08-12-2024 End: 08-12-2024 ambulatory SHELLEY A DONNAMILLER Not Available Start: 08-12-2024 End: 08-12-2024 Bamboo flowsheet Shelley A Donnamiller PROJECT PROGRAM MANAGER Work Phone: [facility] Start: 08-12-2024 End: 08-12-2024 Bamboo flowsheet Shelley A Donnamiller PROJECT PROGRAM MANAGER Work Phone: [facility] Start: 08-05-2024 End: 08-05-2024 Office outpatient visit 25 minutes Rodolfo Boo DO Work Phone: [facility] Comment on above: Postmenopausal atrop hic vaginitis; Breast cancer screening by mammogram Start: 08-05-2024 End: 08-05-2024 ambulatory RODOLFO BOO Not Available Start: 07-30-2024 End: 07-30-[address] [facility] Start: 07-22-2024 End: 07-23-2024 Shira Brian MD Work Phone: [facility] Comment on above: Anxiety Start: 07-02-2024 End: 07-02-2024 ambulatory MARJ [facility] Start: 07-01-2024 End: 07-01-2024 Office outpatient visit 25 minutes Sherlyn Shine PA Work Phone: [facility] Comment on above: Dysuria Start: 07-01-2024 End: 07-01-2024 ambulatory SHERLYN SHINE Not Available Start: 07-01-2024 End: 07-01-2024 Bamboo flowsheet Sherlyn Shine PA Work Phone: [facility] Start: 07-01-2024 End: 07-01-2024 Bamboo flowsheet Sherlyn Shine PA Work Phone: [facility] Start: 06-27-2024 End: 06-27-2024 ambulatory PEGGY NAZARIO Facility:[facility] Start: 06-27-2024 End: 06-27-2024 Patient encounter procedure Raphael Goldsmith MD Work Phone: Urology Comment on above: Feeling of incomplet e bladder emptying (Primary Dx); Stricture of female urethra, unspecified stricture type Start: 06-10-2024 [facility] Start[facility] 06-10-2024 End: 06-10-2024 [facility] Start: 06-03-2024 End: 06-03-2024 ambulatory MARCO MAXIMILIAN Facility:[facility] Start: 06-03-2024 End: 06-03-2024 Patient encounter procedure MARCO YAO [facility] Start: 05-27-2024 End: 05-27-2024 ambulatory [facility] Start: 05-07-2024 End: 05-07-2024 Patient encounter procedure Raphael Goldsmith MD Work Phone: Urology Comment on above: Stricture of female urethra, unspecified stricture type (Primary Dx); Feeling of incomplete bladder emptying Start: 05-07-2024 End: 05-10-2024 ambulatory Raphael Goldsmith MD Work Phone: Urology Start: 03-28-2024 End: 03-28-2024 ambulatory HANNAH BRIAN Not Available Start: 03-26-2024 End: 03-26-2024 ambulatory [facility] Start: 03-06-2024 End: 03-06-2024 ambulatory RADHA [facility] Start: 02-28-2024 End: 02-28-2024 ambulatory [facility] Start: 02-28-2024 End: 02-28-2024 ambulatory [facility] Start: 02-27-2024 End: 02-27-2024 ambulatory HANNAH BRIAN Not Available Start: 02-22-2024 ambulatory [facility] Start: 02-22-2024 ambulatory [facility] Start: 02-02-2024 End: 02-02-2024 ambulatory SHERLYN SHINE Not Available Start: 01-30-2024 End: 01-30-2024 ambulatory [facility] Start: 01-24-2024 ambulatory Micheline Rothman ty:WILL Silva Start: 12-22-2023 Refill Ana Rivas APRN.CNP Work Phone: Cardiology Comment on above: Refill Request Start: 11-22-2023 End: 11-22-2023 Emergency department patient visit Jayson Calloway [facility] Start: 11-13-2023 End: 11-13-2023 ambulatory Hannah Brian Facility:[facility] Start: 11-13-2023 End: 11-13-2023 Patient encounter procedure Hannah Brian [facility] Start: 10-16-2023 Telephone encounter Alea lynn MD Work Phone: Cardiology Comment on above: Patient Update Start: 10-16-2023 End: 10-16-2023 Patient encounter procedure Raphael Goldsmith MD Work Phone: Urology Comment on above: Feeling of incomplet e bladder emptying (Primary Dx); Stricture of female urethra, unspecified stricture type; Severe protein-calorie malnutrition (HCC) Start: 10-16-2023 End: 10-16-2023 ambulatory PEGGY NAZARIO Facility:[facility] Start: 10-05-2023 End: 10-05-2023 Emergency department patient visit Lisdorenerosalva Gaetano Zelalem [facility] Start: 10-02-2023 Telephone encounter Alea lynn [...] Non-ischemic cardiomyopathy (HCC); Persistent atrial fibrillation (HCC); assisted 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; History of cardioversion; Primary hypertension Feeling of incomplet e bladder emptying (Primary Dx); Stricture of female urethra, unspecified stricture type; Severe protein-calorie malnutrition (HCC) Start: 09-21-2023 Telephone encounter Alea lynn MD [...] 09-17-2023 Emergency department patient visit Parveen Ayers [facility] Start: 09-13-2023 Refill Peggy Nazario MD Work Phone: [facility] Comment on above: Anxiety Start: 09-12-2023 Refill Peggy Nazario MD Work Phone: [facility] Comment on above: Gastroesophageal ref lux disease without esophagitis Start: 09-12-2023 End: 09-12-2023 Emergency department patient visit Parveen Ayers [facility] Start: 08-28-2023 End: 08-28-2023 ambulatory PEGGY NAZARIO Facility:[facility] Start: 08-24-2023 Evaluation and manag ement of inpatient AMINA PETERSEN Facility:[facility] Start: 08-23-2023 End: 08-24-2023 Patient encounter procedure Gianni Villalba DO Work Phone: [facility] Start: 08-23-2023 End: 08-24-2023 ambulatory Gianni Villalba DO Work Phone: Cardiology Start: 08-11-2023 End: 08-11-2023 Postop follow up visit related to original px Peggy Nazario MD Work Phone: [facility] Comment on above: Anxiety (Primary Dx) ; Chronic fatigue syndrome Start: 07-24-2023 Telephone encounter Micheline goldberg MD Work Phone: Cardiothoracic Comment on above: Insurance Inquiry Start: 07-21-2023 End: 07-21-2023 Admission to same day surgery center Johan HENRIQUEZ [facility] Start: 07-21-2023 End: 07-21-2023 ambulatory Johan HENRIQUEZ Facility:[facility] Start: 07-20-2023 End: 07-20-2023 ambulatory XXXX NONE Facility:[facility] Start: 07-20-2023 End: 07-20-2023 Patient encounter procedure Johan HENRIQUEZ [facility] Start: 07-19-2023 End: 07-19-2023 ambulatory Micheline BROOKS Facility:[facility] Start: 07-07-2023 End: 07-07-2023 Emergency department patient visit Jeff Cross [facility] Start: 07-04-2023 End: 07-06-2023 Pre-admission assessment Johan HENRIQUEZ [facility] Start: 07-02-2023 End: 07-06-2023 ambulatory Mbanefo OJUKWU Facility:[facility] Start: 07-02-2023 End: 07-06-2023 Observation Noman PATTON [facility] Start: 06-30-2023 End: 07-01-2023 Emergency department patient visit Koby Masterson [facility] Start: 04-26-2023 End: 04-26-2023 Patient encounter procedure Micheline BROOKS [facility] [place] Start: 04-04-2023 End: 04-04-2023 Emergency department patient visit Jeff Cross [facility] Start: 01-28-2023 End: 01-28-2023 Emergency department patient visit Layton Crawford [facility] Start: 12-05-2022 End: 12-05-2022 Patient encounter procedure Peggy Nazario [facility] Start: 10-25-2022 End: 10-25-2022 Patient encounter procedure Micheline BROOKS [facility] Start: 10-03-2022 End: 10-03-2022 Patient encounter procedure Asuncion Reyna [facility] [place] Start: 09-01-2022 End: 09-01-2022 Patient encounter procedure Yennifer Iraheta [facility] Start: 07-12-2022 End: 07-12-2022 Patient encounter procedure Yennifer Iraheta [facility] Start: 06-13-2022 End: 06-13-2022 Patient encounter procedure Yennifer Iraheta [facility] Start: 03-03-2022 End: 03-03-2022 Patient encounter procedure CARMINA GARRISON [facility] [place] Start: 02-15-2022 End: 02-15-2022 Emergency department patient visit Jeff Cross [facility] Start: 12-24-2021 End: 12-24-2021 Emergency department patient visit Jeff Cross [facility] Start: 08-11-2021 End: 11-10-2021 Patient encounter procedure Peggy Nazario [facility] Procedures Date Procedure Procedure Detail Performing Clinician Start: 12-17-2024 Urnls dip stick/tabl et rgnt non-auto w/o micrscp Hannah Brian MD Work Phone: Start: 11-18-2024 Culture bacterial quanttative colony count urine Hannah Brian MD Work Phone: Start: 11-18-2024 Urnls dip stick/tabl et rgnt non-auto w/o micrscp Hannah Brian MD Work Phone: Start: 08-12-2024 Urnls dip stick/tabl et rgnt non-auto w/o micrscp Shelley Aviles NP Work Phone: Start: 07-01-2024 Urnls dip stick/tabl et rgnt non-auto w/o micrscp Sherlyn Shine PA Work Phone: Start: 05-07-2024 Urnls dip stick/tabl et rgnt auto w/o microscopy Bulk Order Provider Start: 10-16-2023 Urnls dip stick/tabl et rgnt auto w/o microscopy Raphael Goldsmith MD Work Phone: Start: 09-26-2023 Urnls dip stick/tabl et reagent auto microscopy Bulk Order Provider Start: 09-26-2023 [facility] CBC PNL BLD AUTO Ge neric External Data Provider Start: 08-23-2023 Echocardiography AMINA PETERSEN Start: 07-21-2023 Transesophageal echocardiography Johan HENRIQUEZ Start: [...] Screening for malign ant neoplasm of colon [facility] Start: 01-30-2028 Urine microalbumin profile DTa P,Tdap,Td Vaccine (5 - Td or Tdap) [facility] Start: 02-21-2027 Diabetes Screening Diabetes Screenin [facility] Start: 09-26-2026 Diabetes Screening Diabetes Screenin [facility] Start: 08-31-2026 Diabetes Screening Diabetes Screenin [facility] Start: 04-09-2025 End: 04-09-2025 Patient encounter procedure 04/09/2025 3:20 PM EDT Office Visit [facility] [address] [place] [address] Hannah Brian MD [address] [place] [address] [facility] Start: 01-07-2025 End: 01-07-2025 Patient encounter procedure [facility] Comment on above: Arrived Start: 12-17-2024 End: 12-17-2024 Patient encounter procedure [facility] Comment on above: Arrived Start: 12-17-2024 End: 12-17-2025 Bacteria identified in Urine by Culture Urine culture Microbiology Routine Right flank pain Dysuria Urinary frequency Expected: 12/17/2024 (Approximate), Expires: 12/17/2025 [facility] Work Phone: Comment on above: Expected: 12/17/2024 (Approximate), Expires: 12/17/2025 Start: 11-25-2024 End: 11-25-2024 Patient encounter procedure 11/25/2024 11:00 AM EDT Office Visit [facility] [address] [place] [address] Hannah Brian MD [address] [place] [address] Arrived [facility] Comment on above: Arrived Start: 11-18-2024 End: 11-18-2025 Bacteria identified in Urine by Culture Urine culture Microbiology Routine Hematuria, unspecified type Expected: 11/18/2024 (Approximate), Expires: 11/18/2025 [facility] Work Phone: Comment on above: Expected: 11/18/2024 (Approximate), Expires: 11/18/2025 Start: 11-08-2024 Pneumococcal Vaccine : 65+ Years (1 of 2 - PCV) Pneumococcal Vaccine: 65+ Years (1 of 2 - PCV) [facility] Comment on above: Postponed from 03/18 (Patient Refused) Start: 10-08-2024 End: 10-08-2024 Patient encounter procedure [facility] Comment on above: Arrived Start: 09-26-2024 BP Controlled (<130/80) BP Controlle d (<130/80) [facility] Start: 08-28-2024 BP Controlled (<130/80) BP Controlle d (<130/80) [facility] Start: 08-12-2024 End: 08-12-2024 Patient encounter procedure 08/12/2024 4:00 PM EST Office Visit [facility] [address] [place] [address] Shelley Aviles NP [address] [place] [address] Arrived [facility] Comment on above: Arrived Start: 08-05-2024 End: 08-05-2024 Patient encounter procedure 08/05/2024 2:45 PM EST Office Visit [facility] [address] [place] [address] Rodolfo Boo, DO [address] [place] [address] [facility] Start: 08-05-2024 End: 10-06-2025 DBT Breast - bilateral screening Bilateral screening mammogram with tomosynthesis Imaging Routine Breast cancer screening by mammogram Expected: 08/05/2024, Expires: 10/06/2025 [facility] Work Phone: Comment on above: Expected: 08/05/2024 , Expires: 10/06/2025 Start: 07-29-2024 End: 07-29-2024 Patient encounter procedure 07/29/2024 3:45 PM EST Office Visit [facility] [address] [place] [address] Rodolfo Boo, DO [address] [place], [place] [id number] [facility] Start: 07-24-2024 Medicare Annual Well ness (AWV) Medicare Annual Wellness (AWV) [facility] Start: 07-01-2024 End: 07-01-2024 Patient encounter procedure 07/01/2024 3:30 PM EST Office Visit [facility] [address] [place] [address] Sherlyn Shine PA [address] [place] [address] Arrived [facility] Comment on above: Arrived Start: 07-01-2024 End: 07-01-2025 Bacteria identified in Urine by Culture Urine culture Microbiology Routine Dysuria Expected: 07/01/2024 (Approximate), Expires: 07/01/2025 [facility] Work Phone: Comment on above: Expected: 07/01/2024 (Approximate), Expires: 07/01/2025 Start: 07-01-2024 End: 07-01-2025 Comprehensive metabolic 2000 panel - Serum or Plasma Comprehensive metabolic panel Lab Routine Dysuria Expected: 07/01/2024 (Approximate), Expires: 07/01/2025 [facility] Work Phone: Comment on above: Expected: 07/01/2024 (Approximate), Expires: 07/01/2025 Start: 04-23-2024 End: 04-23-2024 Patient encounter procedure 04/23/2024 11:10 AM EDT Office Visit Urology [address] [address] Raphael Goldsmith MD [address] [place] [address] 6 month follow up per cc chart Urology Comment on above: 6 month follow up pe r cc chart Start: 04-14-2024 Covid-19 Vaccine ( season) Covid-19 Vaccine ( season) [facility] Start: 04-14-2024 Influenza vaccination [facility] Start: 11-10-2023 End: 11-10-2023 Patient encounter procedure 11/10/2023 1:00 PM EDT Office Visit [facility] [address] [place] [phone] Peggy Nazario MD [address] [place] [address] [facility] Start: 11-08-2023 End: 02-07-2024 Basic metabolic 2000 panel - Serum or Plasma BASIC METABOLIC PNL Lab Routine Non-rheumatic mitral regurgitation Persistent atrial fibrillation (HCC) Non-ischemic cardiomyopathy (HCC) Chronic HFrEF (heart failure with reduced ejection fraction) (HCC) Expected: 11/08/2023 (Approximate), Expires: 02/07/2024 [facility] Work Phone: Comment on above: Expected: 11/08/2023 (Approximate), Expires: 02/07/2024 Start: 11-08-2023 End: 09-26-2024 ECG COMPLETE ECG COMPLETE ECG Routine Non-rheumatic mitral regurgitation Persistent atrial fibrillation (HCC) Non-ischemic cardiomyopathy (HCC) Chronic HFrEF (heart failure with reduced ejection fraction) (HCC) Expected: 11/08/2023 (Approximate), Expires: 09/26/2024 [facility] Work Phone: Comment on above: Expected: 11/08/2023 (Approximate), Expires: 09/26/2024 Start: 10-25-2023 End: 01-24-2024 Basic metabolic 2000 panel - Serum or Plasma BASIC METABOLIC PNL Lab Routine Non-rheumatic mitral regurgitation Persistent atrial fibrillation (HCC) Non-ischemic cardiomyopathy (HCC) Chronic HFrEF (heart failure with reduced ejection fraction) (HCC) Expected: 10/25/2023, Expires: 01/24/2024 [facility] Work Phone: Comment on above: Expected: 10/25/2023 , Expires: 01/24/2024 Start: 10-25-2023 End: 09-26-2024 ECG COMPLETE ECG COMPLETE ECG Routine Non-rheumatic mitral regurgitation Persistent atrial fibrillation (HCC) Non-ischemic cardiomyopathy (HCC) Chronic HFrEF (heart failure with reduced ejection fraction) (HCC) Expected: 10/25/2023, Expires: 09/26/2024 [facility] Work Phone: Comment on above: Expected: 10/25/2023 , Expires: 09/26/2024 Start: 10-10-2023 End: 01-09-2024 Basic metabolic 2000 panel - Serum or Plasma BASIC METABOLIC PNL Lab Routine Non-rheumatic mitral regurgitation Persistent atrial fibrillation (HCC) Non-ischemic cardiomyopathy (HCC) Chronic HFrEF (heart failure with reduced ejection fraction) (HCC) Expected: 10/10/2023 (Approximate), Expires: 01/09/2024 [facility] Work Phone: Comment on above: Expected: 10/10/2023 (Approximate), Expires: 01/09/2024 Start: 10-10-2023 End: 09-26-2024 ECG COMPLETE ECG COMPLETE ECG Routine Non-rheumatic mitral regurgitation Persistent atrial fibrillation (HCC) Non-ischemic cardiomyopathy (HCC) Chronic HFrEF (heart failure with reduced ejection fraction) (HCC) Expected: 10/10/2023 (Approximate), Expires: 09/26/2024 [facility] Work Phone: Comment on above: Expected: 10/10/2023 (Approximate), Expires: 09/26/2024 Start: 10-06-2023 End: 10-06-2023 Patient encounter procedure 10/06/2023 1:00 PM EST Office Visit [facility] [address] [place] [phone] Peggy Nazario MD [address] [place] [address] [facility] Start: 09-26-2023 End: 12-26-2023 Basic metabolic 2000 panel - Serum or Plasma BASIC METABOLIC PNL Lab Routine Non-rheumatic mitral regurgitation Persistent atrial fibrillation (HCC) Non-ischemic cardiomyopathy (HCC) Chronic HFrEF (heart failure with reduced ejection fraction) (HCC) Expected: 09/26/2023, Expires: 12/26/2023 [facility] Work Phone: Comment on above: Expected: 09/26/2023 , Expires: 12/26/2023 Start: 08-14-2023 Advance Directive Discussion Advance Directive Discussion [facility] Start: 08-14-2023 Behavioral Health Screening Behavioral Health Screening [facility] Start: 08-14-2023 Depression Assessment Depression Ass essment [facility] Start: 04-14-2023 Covid-19 Vaccine ( season) Covid-19 Vaccine () [facility] Start: 04-14-2023 Influenza vaccination Influenza Vacc ine (#1) [facility] Start: 2023 RSV Vaccine (1 - 1-d ose 75+ series) RSV Vaccine (1 - 1-dose 75+ series) [facility] Start: 08-14-2022 Advance Directive Discussion Advance Directive Discussion [facility] Start: 08-14-2022 Depression Assessment Depression Ass essment [facility] Start: 02-15-2019 Colonoscopy Colonoscopy [facility] Start: 02-15-2019 Colorectal Cancer Screening Colorectal Cancer Screening [facility] Start: 02-15-2019 Screening for malign ant neoplasm of colon [facility] Start: 2013 Bone Density Screening Bone Density Screening [facility] Start: 2013 Pneumococcal Vaccine : 65+ (1 - PCV) Pneumococcal Vaccine: 65+ (1 - PCV) [facility] Start: 2013 Pneumococcal Vaccine : 65+ (1 of 1 - PCV) Pneumococcal Vaccine: 65+ (1 of 1 - PCV) [facility] Start: 2013 Screening for osteoporosis Bone Dens ity Screening [facility] Start: 2008 RSV Vaccine (1 - 1-d ose 60+ series) RSV Vaccine (1 - 1-dose 60+ series) [facility] Start: 1998 Shingrix Vaccine (1 of 2) Abdi grix Vaccine (1 of 2) [facility] Start: 1993 Cologuard (FIT-DNA) Cologuard (FIT-D NA) [facility] Start: [address] Colonography [facility] Start: 1993 Diabetes Screening Diabetes Screenin g [facility] Start: 1993 Fecal Occult Blood Fecal Occult Bloo d [facility] Start: 1993 Lipid 1996 panel - S theresa or Plasma Lipid Screening [facility] Start: 1993 Lipid panel [facility] Start: 1993 Screening for malign ant neoplasm of colon [facility] Start: 1993 Sigmoidoscopy Sigmoidoscopy [facility] Start: 1967 Pneumococcal Vaccine : 65+ Years (1 of 2 - PCV) Pneumococcal Vaccine: 65+ Years (1 of 2 - PCV) [facility] Start: 1966 Annual PCP Team Varnish Finisher luis Disease Visit Annual PCP Team Chronic Disease Visit [facility] Start: 1966 BP Controlled (<130/80) BP Controlle d (<130/80) [facility] Start: 1966 Depression Screening Depression Scre ening [facility] Start: 1966 Hepatitis C Screening Hepatitis C [facility] Start: 1966 Hepatitis C screening Hepatitis C [facility] Start: 1954 Pneumococcal Vaccine : 65+ Years (1 - PCV) Pneumococcal Vaccine: 65+ Years (1 - PCV) [facility] Start: 1954 Pneumococcal Vaccine : 65+ Years (1 of 2 - PCV) Pneumococcal Vaccine: 65+ Years (1 of 2 - PCV) [facility] Start: 1948 Covid-19 Vaccine (#1) Covid-19 Vacci ne (#1) [facility] Start: 1948 Screening for malign ant neoplasm of colon [facility] Cystourethroscopy CYSTO.PANENDO Procedures Routine Feeling of incomplete bladder emptying Stricture of female urethra, unspecified stricture type Ordered: 09/26/2023 [facility] Work Phone: Comment on above: Ordered: 09/26/2023 Dilat female urethra w/suppository&/instlj ini URETHRAL DILATION(FEMALE) Procedures Routine Stricture of female urethra, unspecified stricture type Feeling of incomplete bladder emptying Ordered: 05/07/2024 [facility] Work Phone: Comment on above: Ordered: 05/07/2024 [facility] Immunizations Immunization Date Immunization Notes [facility] Provider [facility]-2018 tetanus toxoid, reduced diphtheria toxoid, and acellular pertussis vaccine, adsorbed Peggy Nazario MD Work Phone: [facility] 02-16-2016 tetanus and diphtheria toxoids, adsorbed, preservative free, for adult use (5 Lf of tetanus toxoid and 2 Lf of diphtheria toxoid) Peggy Nazario MD Work Phone: [facility] 12-14-2009 diphtheria, tetanus toxoids and pertussis vaccine Peggy Nazario MD Work Phone: [facility] 12-30-2004 diphtheria and tetanus toxoids, adsorbed for pediatric use Peggy Nazario MD Work Phone: [facility] NEGATED: Highlighted row has not occurred!07-20-2023 influenza virus vaccine, unspecified formulation Johan HENRIQUEZ [facility] Payers Date Payer Category Payer [facility] BCBS [id number] 2016 Unknown [id number] 2016 Unknown [id number] 2013 Medicare [id number] 2013 Medicare [id number] 1948 Unknown [id number] 2.16.840.1.777180.3.579. 2.727 1948 Unknown [id number] 2.16.840.1.710590.3.579. 2.72 1948 Unknown [id number] 2.16.840.1.825595.3.579. 2. 1948 Unknown [id number] 2.16.840.1.052491.3.579. 2. 1948 Unknown [id number] 2.16.840.1.980126.3.579. 2. 1948 Unknown [id number] 2.16840.1.036012.3.579. 2. 1948 Unknown [id number] 2..840.1.347768.3.579. 2. 1948 Unknown [id number] 2.840.1.672314.3.579. 2. 1948 Unknown [id number] 2.840.1.626011.3.579. 2. 1948 Unknown [id number] 2.840.1.110633.3.579. 2. 1948 Unknown [id number] 2.840.1.083004.3.579. 2. 1948 Unknown [id number] 2.840.1.580613.3.579. 2. 1948 Unknown [id number] 2.840.1.284418.3.579. 2. 1948 Unknown [id number] 2.840.1.491009.3.579. 2.1258 1948 Unknown [id number] 2.16.840.1.359043.3.579. 2.1258 1948 Unknown [id number] 2.16840.1.969541.3.579. 2.1258 1948 Unknown [id number] 2.16840.1.649858.3.579. 2.1258 1948 Unknown [id number] 2.16.840.1.669938.3.579. 2.9 1948 Unknown [id number] 2.16.840.1.892506.3.579. 2.1258 1948 Unknown [id number] 2.16.840.1.809826.3.579. 2.1258 1948 Unknown [id number] 2.16.840.1.170259.3.579. 2.1258 1948 Unknown [id number] 2.16.840.1.421007.3.579. 2.1258 1948 Unknown [id number] 2.16840.1.233252.3.579. 2.1258 1948 Unknown [id number] 2.16.840.1.342096.3.579. 2.1259 Social History Date Type Detail Facility Start: 02-23-2021 End: 04-12-2023 Tobacco smoking status Ex-smoker (finding) [facility] Comment on above: Denies Start: 07-08-2020 End: 11-25-2024 Sex Assigned At Female [facility] Tobacco smoking status Never [facility] Comment on above: Denies History of tobacco use Current smoker [facility] Start: 10-24-2017 End: 04-12-2023 Tobacco use and exposure Smokeless tobacco non-user [facility] Start: 10-24-2017 Alcohol intake Current drinke r of alcohol (finding) [facility] Start: 07-08-2020 End: 11-25-2024 History of Social function [facility] Start: 09-26-2012 End: 08-23-2023 Tobacco Comment Quit 1996. social smoker mostly [facility] Start: 1948 Sex Assigned At Not on file [facility] History of tobacco use Cigarette Smoker [facility] Start: 09-12-2023 End: 01-08-2025 Alcohol intake Ex-drinker (finding) [facility] How [...] goal Functional Status Date Assessment Result Facility 11-25-2024 Patient Health Quest ionnaire 2 item (PHQ-2) [Reported] [facility] 11-22-2023 Functional Status N/A [facility] 10-05-2023 Functional Status N/A [facility] 09-17-2023 Functional Status N/A [facility] 09-12-2023 Functional Status N/A [facility] 07-21-2023 Functional Status No [facility] 07-20-2023 Functional Status No [facility] 07-07-2023 Functional Status N/A [facility] 07-03-2023 Functional Status N/A [facility] 07-02-2023 Functional Status [facility] 06-30-2023 Functional Status N/A [facility] 04-26-2023 Functional Status N/A [facility] 04-04-2023 Functional Status N/A [facility] 01-28-2023 Functional Status N/A [facility] 10-19-2022 Functional Status N/A [facility] 10-03-2022 Functional Status N/A [facility] 09-01-2022 Functional Status No [facility] 06-13-2022 Functional Status No [facility] 03-03-2022 Functional Status N/A [facility] 02-15-2022 Functional Status N/A [facility] Clinical Notes 12-24-2021 to 01-14-2025 Telephone Encounter - Shelley Aviles NP - 01/13/2025 11:14 AM EDTTelephone Encounter - Shelley Aviles NP - 01/13/2025 11:14 AM Naveen Brian MD - 01/07/2025 3:20 PM EDT Note Date & Type Note Facility 01-14-2025 Note Patient: Asya Asencio Procedure Summary Date: 01/14/25 Room / Location: [facility] 3 / [facility] (Cath) Anesthesia Start: 830 Anesthesia Stop: 1215 Procedure: Transcatheter mitral valve repair Diagnosis: Nonrheumatic mitral valve regurgitation (s/p successful ANA of the mitral valve using XTW MitraClip.) Providers: Nereyda Robins MD Responsible Provider: Lobo Machado MD Anesthesia Type: general ASA Status: 4 Anesthesia Type: general Vitals Value Taken Time BP 111/80 01/14/25 1241 Temp 36.2 ???C (97.2 ???F) 01/14/25 1215 Pulse 70 01/14/25 1250 Resp 15 01/14/25 1250 SpO2 97 % 01/14/25 1250 Vitals shown include unfiled device data. Anesthesia Post Evaluation Patient location during evaluation: PACU Patient participation: complete - patient participated Level of consciousness: awake Pain management: adequate Airway patency: patent Cardiovascular status: acceptable Respiratory status: acceptable Hydration status: acceptable Patient is hemodynamically stable and is able to be discharged from PACU per anesthesia protocol. There were no known notable events for this encounter. [facility] 01-14-2025 Note Patient intubated un bart observation by anesthesia [facility] 01-14-2025 Note Patient: Asya Asencio Procedure Information Anesthesia Start Date/Time: 01/14/25830 Procedure: Transcatheter mitral valve repair - case for general anesthesia approved by Dr Callejas, NPCR Location: [facility] / [facility] (Cath) Providers: Nereyda Robins MD Relevant Problems Cardio (+) Atherosclerosis of aorta (+) Atrial fibrillation, persistent (CMS/HCC) (+) Non-rheumatic mitral regurgitation (+) Nonrheumatic mitral valve regurgitation (+) Paroxysmal atrial fibrillation (CMS/HCC) (+) Primary hypertension (+) Severe mitral regurgitation GI (+) Acid reflux /Renal (+) Renal lesion Past Medical History: Diagnosis Date Abnormal ECG Adjustment disorder with mixed anxiety and depressed mood Afib (CMS/HCC) Anxiety Arrhythmia Atherosclerosis of aorta Atrial fibrillation (CMS/HCC) CHF (congestive heart failure) (CMS/HCC) Chronic fatigue syndrome GERD (gastroesophageal reflux disease) Heart murmur Heart valve disease Hypertension Hypothyroidism Intestinal obstruction (CMS/HCC) Non-rheumatic mitral regurgitation Nonischemic cardiomyopathy (CMS/HCC) Nonrheumatic tricuspid valve regurgitation Panic attack Presence of biventricular automatic cardioverter/defibrillator (AICD) Seasonal allergies Severe protein-calorie malnutrition Past Surgical History: Procedure Laterality Date ABLATION OF DYSRHYTHMIC FOCUS CARDIAC CATHETERIZATION CARDIAC DEFIBRILLATOR PLACEMENT CARDIOVERSION HYSTERECTOMY INSERT / REPLACE / REMOVE PACEMAKER [place] 12/06: Left Ventricle: The left ventricle is normal size. Global left ventricular systolic function is at lower limits of normal. The EF is 50 % visually. Left ventricular wall thickness is normal. No regional wall motion abnormality. Right Ventricle: The right ventricle appears normal in size. Right ventricular systolic function appears normal. Left Atrium: The left atrium is severely enlarged. IAS: No intracardiac shunt by agitated saline injections. Mitral Valve: Flow reversal is seen in the pulmonary veins suggestive of severe mitral regurgitation. There is malcoaptation of the mitral valve leaflets. The multiple MR gets and the main one is eccentric and posterioly directed. Mitral Valve Measurements MR Vmax: 4.66 m/s. MR VTI: 160.0 cm.PISA radius 0.8 cm. ERO 0.29 cm2. MR volume 43 ml Tricuspid Valve: Possible partial flail leflet in the posterior leaflet. Severe tricuspid regurgitation probably related to restricted movement of the posterior leaflet possibley due to the pacemaker wire. Aorta: Moderate atherosclerotic plaque is seen in the aorta. Overall Conclusions: Technicaly difficult study the patient was not cooperative and difficult to sedate(received 8mg of midazolam and 100 of fentanyl) recommend general anasthesia for future HAROON Clinical information reviewed: Tobacco Allergies Meds Med Hx Surg Hx Fam Hx Soc Hx Physical Exam Airway Mallampati: II TM distance: >3 FB Neck ROM: full Cardiovascular - normal exam Dental Comments: Reports upper bridge with decay underneath that needs to be removed by dentist per patient; reports other damaged teeth, none loose at this time per patient Pulmonary - normal exam Abdominal - normal exam Anesthesia Plan ASA 4 general (GETA with standard ASA monitors; Post-induction A-line; femoral venous access provided by procedural team for intra-procedure use; No modifications to pacemaker at this time (device check reviewed in EPI, battery life 11 years; no plans for cautery at this time). Multidrug ponv prophylaxis with decadron, benadryl, zofran. Pt. Denies anaphylactic issues with sulfa abx, plan for ancef, discussed with Dr. James. ) Postoperative administration of opioids is intended. Trial extubation is planned. Anesthetic plan and risks discussed with patient. Use of blood products discussed with patient who consented to blood products. Plan discussed with attending and resident. Additional Equipment Requests [facility] 01-14-2025 Note Arterial Line: Date/Time: 01/14/2025 9:04 AM An arterial line was placed Procedure performed using ultrasound guidance.in the OR for the following indication(s): continuous blood pressure monitoring and blood sampling needed. A 20 G (size), 2 inch (length) (type) catheter was placed, Seldinger technique used , into the Left radial artery, secured by Biodisc/Biopatch, tape and Tegaderm. Events: patient tolerated procedure well with no complications. Additional notes: [place] Staffing Performed: resident/PAINTINGS RESTORER/CAA Anesthesiologist: Lobo Machado MD Resident/PAINTINGS RESTORER: Margaret Briceno MD Performed by: Micheline Mendoza MD Authorized by: Lobo Machado MD [facility] 01-14-2025 Note Airway Date/Time: 01/14/2025 8:52 AM Urgency: elective Airway not difficult General Information and Staff Patient location during procedure: OR Anesthesiologist: Lobo Machado MD Resident/PAINTINGS RESTORER/CAA: Margaret Briceno MD Performed: resident/PAINTINGS RESTORER/CAA Indications and Patient Condition Indications for airway management: anesthesia Spontaneous Ventilation: absent Sedation level: deep Preoxygenated: yes Patient position: sniffing Mask difficulty assessment: 1 - vent by mask Final Airway Details Final airway type: endotracheal airway Successful airway: ETT Cuffed: yes Successful intubation technique: video laryngoscopy Facilitating devices/methods: intubating stylet Endotracheal tube insertion site: oral Blade: Cunningham Blade size: #3 ETT size (mm): 7.5 Cormack-Lehane Classification: grade I - full view of glottis Placement verified by: chest auscultation and capnometry Measured from: lips ETT to lips (cm): 22 Number of attempts at approach: 1 Number of other approaches attempted: 0 [facility] 01-13-2025 Telephone encounter Note Rx sent, HR OOO. OARRS appropriate. [facility] 01-13-2025 Miscellaneous Notes Rx sent, HR OOO. OARRS appropriate. HR OOO Pt needs refill on Lorazapam sent to [facility]. documented in this encounter [facility] 01-13-2025 Telephone encounter Note HR OOO [facility] 01-13-2025 Telephone encounter Note Pt needs refill on Lorazapam sent to [facility]. [facility] 01-07-2025 History of Present illness Narrative Images from the original note were not included. Subjective Patient ID: Asya Asencio is a 74 y.o. female who presents for Follow-up. HPI Pt here for follow up. Mood - has been under increased stress lately due to cardiology. Has multiple upcoming appointments. Current medication regimen is helping to control her symptoms w/o side effects. Review of Systems General: Denies fever, chills, fatigue, LOERA or weight loss/gain CV: Denies CP, palpitations or swelling in legs Resp: denies cough, SOB or wheezing GI: Denies abd pain/n/v/c/d Skin: Denies rash Neuro: Denies LH or dizziness Objective Blood pressure 120/70, pulse 70, temperature 97.9 F, height 5' 3 , weight 135 lb 3.2 oz, SpO2 97%. Body mass index is 23.95 kg/m . Physical Exam General: alert & oriented, NAD Head: NC/AT Oral Cavity: MMM Skin: warm, dry Heart: RRR, No m/r/g, S1S2 nml Lungs: CTA b/l Abdomen: soft, ND/NT, BS wnl Musculoskeletal: normal gait Extremities: no clubbing, cyanosis or edema Neurological: nonfocal Psych: mood/affect full range Assessment/Plan Asya was seen today for follow-up. Diagnoses and all orders for this visit: Atrial fibrillation, persistent (HCC) (CMS/HCC) (Primary) Stable, continue to monitor. No change in regimen. Continue to follow w/ specialists assisted 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 - Continue to monitor for abnormal bruising or bleeding Primary hypertension (CMS/HCC) Stable, continue to monitor. No change in regimen. Anxiety Stable, continue to monitor. No change in regimen. Panic attack (CMS/HCC) Stable, continue to monitor. No change in regimen. documented in this encounter [facility] 12-25-2024 Note I have reviewed this patient's medical record, cardiac imaging. she has severe secondary (functional) mitral regurgitation, chronic heart failure with reduced ejection fraction and has persistent symptoms NYHA class III despite maximally tolerated guideline-directed medical therapy. I think that she is a good candidate for and would benefit from transcatheter [id number] repair. [facility] 12-23-2024 Note [place] [facility] - [facility] Subjective Asya Asencio is a 74 y.o. year old female patient being seen for follow up MR/RT Patient states she is here for clearance to have teeth pulled. Patient state she has a lot of blood in her urine her and gum bleeding family Told here it was due to the Eliquis. Patient states she has chest pain feel like a sharp pain that come and goes quickly, dyspnea with exertion, not sleeping well, palpitations. Patient lucas dizziness, leg swelling Patient Active Problem List Diagnosis Acid reflux Acute gastroenteritis Adjustment disorder with mixed anxiety and depressed mood Anxiety Atherosclerosis of aorta Atrial fibrillation, persistent (CMS/HCC) Atrophic vaginitis Cardiomyopathy, nonischemic (CMS/HCC) Chronic fatigue syndrome Cystocele with prolapse Dysuria Feeling of incomplete bladder emptying Former smoker History of urethral stricture Incomplete bladder emptying Injury of nose Intestinal obstruction (CMS/HCC) Nocturia Non-rheumatic mitral regurgitation Nonrheumatic tricuspid valve regurgitation Panic attack Poor urinary stream Primary hypertension Renal lesion Seasonal allergies Severe protein-calorie malnutrition Status post hysterectomy Stranguria Stricture and atresia of vagina Superficial laceration of face Suprapubic pain Transient insomnia Urethral stricture Urinary frequency Urinary urgency assisted 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 Paroxysmal atrial fibrillation (CMS/HCC) Presence of biventricular automatic cardioverter/defibrillator (AICD) Family History Problem Relation Name Age of Onset Coronary artery disease Mother Diabetes Mother Coronary artery disease Father Social History Tobacco Use Smoking status: Former Types: Cigarettes Passive exposure: Past (social smoker stopped in 1989) Smokeless tobacco: Never Substance Use Topics Alcohol use: Never Drug use: Never AKANKSHA Asya is seen in follow up. She is [...] At her recent visit with cardiology at [facility] on 09/26/2023 valsartan was stopped and low-dose lisinopril 5 mg once daily was added. The plan was to add Jardiance. There is note of her to being evaluated by CT surgery Dr. Sorto regarding candidacy for cardiac surgery and she was deemed high risk. She was also evaluated at [facility] cardiothoracic surgery. Initial workup for her mitral [...] me on 12/01/2023 I referred her to Marco Yao for consideration of further management of her atrial fibrillation to include A-fib ablation. Dr. Marco Yao decided to proceed with placement of biventricular pacemaker ICD on 02/28/2024 with a ultimate plan for AV jonathan ablation. She eventually underwent AV jonathan ablation on 06/10/2024. She did well with that procedure. Her follow-up echocardiogram showed worsening mitral regurgitation. She recently underwent transesophageal echocardiogram that showed severe mitral regurgitation and tricuspid regurgitation. She is here today for follow-up to determine management of her valvular heart disease. She has shortness of breath on exertion NYHA class II-III symptoms. She has no dizziness or lightheadedness or lower extremity edema. She has occasional chest discomfort. In addition she has been having on and off hematuria and is asking about anticoagulation therapy. Review of Systems Constitutional: Positive for malaise/fatigue. Cardiovascular: Positive for chest pain and dyspnea on exertion. Hematologic/Lymphatic: Bruises/bleeds easily. Gastrointestinal: Positive for change in bowel habit and constipation. Psychiatric/Behavioral: The patient is nervous/anxious. All other systems reviewed and are negativ (more content not included)... [facility] 12-17-2024 History of Present illness Narrative Images from the original note were not included. Subjective Patient ID: Asya Asencio is a 74 y.o. female who presents for Right Flank Pain, Urinary Frequency, and dysuria. HPI Pt here for acute visit. States she has had 1 day of dysuria, hematuria, which is chr in nature, and urinary frequency. Did eat some grapes yesterday, which she thinks might have triggered her sx. Continues to be on oral anticoagulation. No OTC tx. Review of Systems General: Denies fever, chills, fatigue, LOERA or weight loss/gain CV: Denies CP, palpitations or swelling in legs Resp: denies cough, SOB or wheezing GI: Denies abd pain/n/v/c/d Skin: Denies rash Neuro: Denies LH or dizziness Objective Blood pressure 128/80, pulse 74, temperature 97.5 F, height 5' 3 , weight 136 lb, SpO2 99%. Body mass index is 24.09 kg/m . Physical Exam General: alert & oriented, NAD Head: NC/AT Oral Cavity: MMM Skin: warm, dry Heart: RRR, S1S2 nml Lungs: CTA b/l Abdomen: soft, ND/NT, BS wnl Musculoskeletal: normal gait Extremities: no clubbing, cyanosis or edema Neurological: nonfocal Psych: mood/affect full range Assessment/Plan Asya was seen today for right flank pain, urinary frequency and dysuria. Diagnoses and all orders for this visit: Hematuria, unspecified type (Primary) Right flank pain - Urine culture; Future - Urine culture - POCT Urinalysis dipstick Dysuria - Urine culture; Future - Urine culture - POCT Urinalysis dipstick Urinary frequency - Urine culture; Future - Urine culture - POCT Urinalysis dipstick Discussed sx tx, side effects of meds and concerning sx to monitor for. documented in this encounter [facility] 11-25-2024 History of Present illness Narrative Images from the original note were not included. Subjective Patient ID: Asya Asencio is a 74 y.o. female who presents for No chief complaint on file.. HPI Pt here for follow up. States she has not been feeling well x > 7 days with productive cough, chest congestion, nasal congestion, rhinorrhea and exertional SOB. Denies fever. Recently took a zpak that helped some, but continues to have residual sx. Also c/o zac leg pain. States she fell over the weekend after tripping on the vacuum cord. Does have bruising of her anterior thighs. Put ice on the area, which seemed to help. Review of Systems General: Denies fever, chills, fatigue, LOERA or weight loss/gain CV: Denies CP, palpitations or swelling in legs Resp: denies SOB or wheezing GI: Denies abd pain/n/v/c/d Skin: Denies rash Neuro: Denies LH or dizziness Objective Blood pressure 124/60, pulse 75, temperature 97.8 F, height 5' 3 , weight 138 lb, SpO2 96%. Body mass index is 24.45 kg/m . Physical Exam General: alert & oriented, NAD Head: NC/AT Oral Cavity: MMM Skin: warm, dry Heart: RRR, No m/r/g, S1S2 nml Lungs: CTA b/l Abdomen: soft, ND/NT, BS wnl Musculoskeletal: normal gait Extremities: no clubbing, cyanosis or edema Neurological: nonfocal Psych: mood/affect full range Assessment/Plan Diagnoses and all orders for this visit: Acute cough (Primary) - azithromycin (Zithromax) 250 MG tablet; Take 2 tabs PO x 1 day then 1 tab PO daily x 4 days Discussed sx tx, side effects of meds and concerning sx to monitor for. Bruising Discussed sx tx, side effects of meds and concerning sx to monitor for. assisted 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 Atrial fibrillation, persistent (HCC) (CMS/HCC) Stable, continue to monitor. No change in regimen. Continue to follow w/ specialists Primary hypertension (CMS/HCC) Stable, continue to monitor. No change in regimen. Continue to follow w/ specialists documented in this encounter [facility] 11-18-2024 History of Present illness Narrative Images from the original note were not included. Subjective Patient ID: Asya Asencio is a 74 y.o. female who presents for Nausea, Cough, and Conjunctivitis. HPI Pt here for acute visit. States she has not been feeling well x < 7 days with productive cough, chest congestion, nasal congestion, rhinorrhea and exertional SOB. Denies fever. +sick contacts. No OTC tx. Also c/o fullness in her R ear. Has noticed blood in her urine w/o dysuria or frequency. Review of Systems General: Denies fever, chills, CV: Denies CP, palpitations or swelling in legs GI: Denies abd pain/n/v/c/d Skin: Denies rash Neuro: Denies LH or dizziness Objective Blood pressure 120/60, pulse 70, temperature 97.8 F, height 5' 3 , weight 135 lb, SpO2 98%. Body mass index is 23.91 kg/m . Physical Exam General: alert & oriented, NAD Head: NC/AT Ear: R TM - middle ear effusion noted Oral Cavity: MMM Skin: warm, dry Heart: RRR, No m/r/g, S1S2 nml Lungs: CTA b/l Abdomen: soft, ND/NT, BS wnl Musculoskeletal: normal gait Extremities: no clubbing, cyanosis or edema Neurological: nonfocal Psych: mood/affect full range Assessment/Plan Asya was seen today for nausea, cough and conjunctivitis. Diagnoses and all orders for this visit: Acute cough (Primary) - azithromycin (Zithromax) 250 MG tablet; Take 2 tabs PO x 1 day then 1 tab PO daily x 4 days - predniSONE (Deltasone) 20 MG tablet; Take 2 tablets (40 mg) by mouth Daily for 5 days Discussed sx tx, side effects of meds and concerning sx to monitor for. Hematuria, unspecified type - POCT Urinalysis dipstick - Urine culture; Future assisted 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 - continue to monitor for abnormal bruising/bleeding Atrial fibrillation, persistent (HCC) (CMS/HCC) Stable, continue to monitor. No change in regimen. Continue to follow w/ cardiology Primary hypertension (CMS/HCC) Stable, continue to monitor. No change in regimen. Continue to follow w/ cardiology documented in this encounter [facility] 10-22-2024 Note [facility] Electrophysiology Consult Note [facility] - [facility] Reason for visit: Afib+ CMP 10/22/24 Patient underwent a TV NEWS DIRECTOR-P implant on 02/28/2024 when a TV NEWS DIRECTOR-P was placed in a submuscular fashion with good thresholds and subsequently an AV node ablation was performed on 06/10/2024. Follow-up EKG done on 07/02/2024 shows evidence of atrial fibrillation with BiV pacing. Repeat echocardiogram done on 10/21/2024 shows EF of 35 to 40%. Interestingly echocardiogram done previously showed mild MR and on this occasion if there is moderate to severe. She also has some difficulty tolerating anticoagulation because she has had some hematuria. Overall she has done very well since her TV NEWS DIRECTOR. Device check performed on 07/30/2024 shows patient being BiV paced 98% of the time 02/22/24 Pt here to discuss about TV NEWS DIRECTOR-P Prior HPI: Asya Asencio is a 74 y.o. year old with past medical history [...] MR and subsequently had a visit with [facility] where evaluation was being done for surgical correction of mitral valve but was noted to have high risk and hence deferred. She also had an evaluation for the same at [place] surgery and thereafter had seen in [...] PSH: Past Surgical History: Procedure Laterality Date ABLATION OF DYSRHYTHMIC FOCUS CARDIAC CATHETERIZATION CARDIOVERSION INSERT / REPLACE / REMOVE PACEMAKER SH: Social Determinants of Health Tobacco Use: Medium Risk (10/08/2024) Received from [facility] Patient History Smoking Tobacco Use: Former Smokeless Tobacco Use: Never Passive Exposure: Never Alcohol Use: Not At Risk (08/05/2024) Received from [facility] AUDIT-C Frequency of Alcohol Consumption: Never Average Number of Drinks: Patient does not drink Frequency of Binge Drinking: Never Financial Resource Strain: Not on file Food Insecurity: Not on file Transportation Needs: Not on file Physical Activity: Not on file Stress: Not on file Social Connections: Not on file Intimate Partner Violence: Unknown (10/05/2023) [place] Safety & Environment Fear of Current or Ex-Partner: Not on file Emotionally Abused: Not on file Physically Abused: Not on file Sexually Abused: Not on file Physically or Sexually Abused: Not on file Depression: Not at risk (08/05/2024) Received from [facility] PHQ-2 Patient Health Questionnaire-2 Score: 0 Housing Stability: Not on file Utilities: Not on file Health Literacy: Not on file Allergies: Allergies Allergen Reactions Amiodarone Nausea And Vomiting Amoxicillin Diarrhea Cephalexin GI intolerance, Nausea And Vomiting and Unknown Egg Derived Other Reaction(s): allergy Empagliflozin Angioedema Turned hands different colors and not breathing Erythromycin Unknown Morphine Unknown and Other Other Reaction(s): Unknown cause Other Reaction(s): Unknown cause Sulfa (Sulfonamide Antibiotics) GI intolerance and Other Valsartan Wheat Bran Other Reaction(s): allergy Weight: 60.8kg Visit Vitals BP 129/71 (BP Location: Right arm, Patient Position: Sitting) Pulse 70 Ht 1.651 m (5' 5 ) Wt 60.8 kg (134 lb) SpO2 99% BMI 22.30 kg/m??? OB Status Postmenopausal Smoking Status Former BSA 1.67 m??? Meds: Current Outpatient Medications on File Prior to Visit Medication Sig Dispense Refill apixaban (Eliquis) 5 mg tablet Take 1 tablet (5 mg) by mouth two times daily. 180 tablet 3 atorvastatin (Lipitor) 40 mg tablet Take 1 tablet (40 mg) by mouth in the evening. Do not take at bedtime 90 tablet 3 carvedilol (Coreg) 3.125 mg tablet Take 1 tablet (3.125 mg) by mouth with breakfast and with evening meal. To be taken with a 6.25 tablet for a total of 9.375 twice daily 180 tablet 3 carvedilol (Coreg) 6.25 mg tablet Take 1 tablet (6.25 mg) by mouth with breakfast and with evening meal. To be taken with a 3.125 tablet for a total of 9.375 mg twice daily 180 tablet 3 LORazepam (Ativan) (more content not included)... [facility] 10-08-2024 History of Present illness Narrative Associated Problem(s): Panic attack (CMS/HCC) Stable Patient will return in [address] Brian to refill meds Encouraged watching diet and restart exercising Images from the original note were not included. Asya Asencio is a 74 y.o. female presents with chief complaint of Follow-up HPI: History of Present Illness MEDICATIONS: Current Outpatient Medications Medication Instructions carvedilol (Coreg) 6.25 MG tablet TAKE 1 TABLET BY MOUTH DAILY WITH BREAKFAST and WITH evening meal carvedilol (COREG) 3.125 mg, 2 times daily with meals Eliquis 5 mg, 2 times daily famotidine (PEPCID) 40 mg, Oral, Nightly Lipitor 40 mg, Daily LORazepam (ATIVAN) 0.5 mg, Oral, Every 8 hours PRN ondansetron ODT (ZOFRAN-ODT) 4 mg, Oral, Every 8 hours PRN prednisoLONE acetate (Pred-Forte) 1 % ophthalmic suspension Instill 1 drop into left eye three times a day as directed spironolactone (ALDACTONE) 12.5 mg, 2 times daily ALLERGIES: Allergies Allergen Reactions Amiodarone Nausea And Vomiting Amoxicillin Diarrhea Aspirin Other Reaction(s): Other: See Comments Patient states causes Bruising. Cephalexin GI intolerance Egg-Derived Products Other Reaction(s): allergy Erythromycin Unknown Jardiance [Empagliflozin] Angioedema Turned hands different colors and not breathing Meperidine Other Reaction(s): AOF, Other: See Comments, Syncope Patient does not know if she is allergic but know she is not suppose to take it. Meperidine Hcl Unknown Morphine Other Reaction(s): Unknown cause Sulfa Antibiotics GI intolerance Valsartan Wheat Other Reaction(s): allergy Wheat Dextrin Other Reaction(s): allergy Latex Hives and Rash Review of Systems General: Denies fever, chills, fatigue, LOERA or weight loss/gain CV: Denies CP, palpitations or swelling in legs Resp: denies cough, SOB or wheezing GI: Denies abd pain/n/v/c/d Skin: Denies rash Neuro: Denies LH or dizziness Medical, Surgical, Family, and Social History reviewed. OBJECTIVE: Visit Vitals BP 120/70 (BP Location: Left arm, Patient Position: Sitting, BP Cuff Size: Adult) Pulse 70 Temp 97.9 F (Temporal) Ht 5' 3 Wt 135 lb LMP (LMP Unknown) SpO2 97% BMI 23.91 kg/m OB Status Hysterectomy Smoking Status Former BSA 1.65 m BP Readings from Last 3 Encounters: 10/08/24 120/70 08/12/24 124/70 08/05/24 130/84 Wt Readings from Last 3 Encounters: 10/08/24 135 lb 08/12/24 128 lb 6.4 oz 08/05/24 125 lb Physical Exam Physical Exam General: alert & oriented, NAD Head: NC/AT Oral Cavity: MMM Skin: warm, dry Heart: RRR, No m/r/g, S1S2 nml Lungs: CTA b/l Abdomen: soft, ND/NT, BS wnl Musculoskeletal: normal gait Extremities: no clubbing, cyanosis or edema Neurological: nonfocal Psych: mood/affect full range Results ASSESSMENT AND PLAN: Assessment & Plan Assessment/Plan There are no preventive care reminders to display for this patient. Images from the original note were not included. Asya Asencio is a 74 y.o. female presents with chief complaint of Follow-up HPI: History of Present Illness The patient is a 74-year-old female who presents for evaluation of anxiety, weight gain, and adverse effects from carvedilol. She reports an exacerbation of her symptoms following an increase in her carvedilol dosage, which was prescribed by her scientist electronics. She has been experiencing shortness of breath, particularly during physical activities such as dancing, and suspects that the medication may be causing a decrease in her blood pressure. She also reports irregular heart rhythms and night terrors, which she attributes to the carvedilol. She has been eating a lot of nuts and sweets, which she believes are contributing to her weight gain. She has been trying to cut back on her intake of these foods, but it has been difficult. She has been trying to exercise at home, but it is not the same as dancing. She has been urinating frequently, which she attributes to the spironolactone. She has been taking half of the spironolactone twice daily for a long time. She has been monitoring her urine output at home and has noticed that she has been urinating 40 to 50 ounces per day, and yesterday she urinated over 60 ounces in 24 hours. She has been feeling cold and believes that her blood pressure is low. She has been feeling anxious and aggravated about her surgery and the whole situation. She has been eating a lot of nuts, which she believes are not good for her bowels. She has been trying to cut back on her intake of nuts. She has been feeling worse since the carvedilol dosage was increased and plans to discuss this with her scientist electronics during her upcoming appointment. She has been feeling anxious and aggravated about her surgery and the whole situation. She has been eating a lot of nuts, which she believes are not good for her bowels. She has been trying to cut back on her intake of nuts. She has been feeling worse since the carvedilol dosage was increased and plans to discuss this with her scientist electronics during her upcoming appointment. She has been feeling anxious and aggravated about her surgery and the whole situation. She has been eating a lot of nuts, which she believes are not good for her bowels. She has been trying to cut back on her intake of nuts. She has been feeling worse since the carvedilol dosage was increased and plans to discuss this with her scientist electronics during her upcoming appointment. She has been eating a lot of nuts and sweets, which she believes are contributing to her weight gain. She has been trying to cut back on her intake of these foods, but it has been difficult. She has been trying to exercise at home, but it is not the same as dancing. Supplemental Information She received some eye drops yesterday for a stye, which caused her heart rate to increase slightly. MEDICATIONS Current: Carvedilol, spironolactone MEDICATIONS: Current Outpatient Medications Medication Instructions carvedilol (Coreg) 6.25 MG tablet TAKE 1 TABLET BY MOUTH DAILY WITH BREAKFAST and WITH evening meal carvedilol (COREG) 3.125 mg, 2 times daily with meals Eliquis 5 mg, 2 times daily famotidine (PEPCID) 40 mg, Oral, Nightly Lipitor 40 mg, Daily LORazepam (ATIVAN) 0.5 mg, Oral, Every 8 hours PRN ondansetron ODT (ZOFRAN-ODT) 4 mg, Oral, Every 8 hours PRN prednisoLONE acetate (Pred-Forte) 1 % ophthalmic suspension Instill 1 drop into left eye three times a day as directed spironolactone (ALDACTONE) 12.5 mg, 2 times daily ALLERGIES: Allergies Allergen Reactions Amiodarone Nausea And Vomiting Amoxicillin Diarrhea Aspirin Other Reaction(s): Other: See Comments Patient states causes Bruising. Cephalexin GI intolerance Egg-Derived Products Other Reaction(s): allergy Erythromycin Unknown Jardiance [Empagliflozin] Angioedema Turned hands different colors and not breathing Meperidine Other Reaction(s): AOF, Other: See Comments, Syncope Patient does not know if she is allergic but know she is not suppose to take it. Meperidine Hcl Unknown Morphine Other Reaction(s): Unknown cause Sulfa Antibiotics GI intolerance Valsartan Wheat Other Reaction(s): allergy Wheat Dextrin Other Reaction(s): allergy Latex Hives and Rash Review of Systems General: Denies fever, chills, fatigue, LOERA or weight loss/gain CV: Denies CP, palpitations or swelling in legs Resp: denies cough, SOB or wheezing GI: Denies abd pain/n/v/c/d Skin: Denies rash Neuro: Denies LH or dizziness Medical, Surgical, Family, and Social History reviewed. OBJECTIVE: Visit Vitals BP 120/70 (BP Location: Left arm, Patient Position: Sitting, BP Cuff Size: Adult) Pulse 70 Temp 97.9 F (Temporal) Ht 5' 3 Wt 135 lb LMP (LMP Unknown) SpO2 97% BMI 23.91 kg/m OB Status Hysterectomy Smoking Status Former BSA 1.65 m BP Readings from Last 3 Encounters: 10/08/24 120/70 08/12/24 124/70 08/05/24 130/84 Wt Readings from Last 3 Encounters: 10/08/24 135 lb 08/12/24 128 lb 6.4 oz 08/05/24 125 lb Physical Exam Physical Exam Lungs are clear. Heart is regular. General: alert & oriented, NAD Head: NC/AT Oral Cavity: MMM Skin: warm, dry Heart: RRR, No m/r/g, S1S2 nml Lungs: CTA b/l Abdomen: soft, ND/NT, BS wnl Musculoskeletal: normal gait Extremities: no clubbing, cyanosis or edema Neurological: nonfocal Psych: mood/affect full range Results ASSESSMENT AND PLAN: Assessment & Plan 1. Adverse effects from carvedilol. She reports feeling worse since the dosage of carvedilol was increased by her scientist electronics. Symptoms include shortness of breath, irregular heart rhythm, and night terrors. Her blood pressure is currently stable. She is advised to discuss these symptoms with her scientist electronics during her upcoming appointment next month. 2. Anxiety. She reports increased anxiety, which has led to changes in her eating habits, including increased consumption of sweets and nuts. She is encouraged to resume physical activities such as dancing, which previously helped manage her anxiety. Home exercises are recommended until she can return to her regular activities. 3. Weight gain. She has experienced weight gain, likely due to increased caloric intake and reduced physical activity during the winter. She is advised to monitor her diet closely and reduce the intake of high-calorie foods such as sweets and nuts. Increasing physical activity, even at home, is recommended to help manage her weight. Assessment/Plan Problem List Items Addressed This Visit Atherosclerosis of aorta (CMS/HCC) Atrial fibrillation, persistent (HCC) (CMS/HCC) Primary hypertension (CMS/HCC) - Primary There are no preventive care reminders to display for this patient. documented in this encounter [facility] 09-20-2024 Telephone encounter Note Pt needs a refill on Ativan Please send to [facility] 09-20-2024 Miscellaneous Notes Pt needs a refill on Ativan Please send to drug [facility] documented in this encounter [facility] 08-12-2024 History of Present illness Narrative Asya Asencio is a 74 y.o. female presents with chief complaint of Urinary Frequency HPI: History of Present Illness The patient is a 74-year-old female who presents for evaluation of urinary frequency. She reports experiencing urinary frequency, which she attributes to the consumption of an orange. She also reports soft bowel movements, with the most recent one occurring today. She reports no current nausea or vomiting but experienced mild nausea approximately a week ago, which she believes was a side effect of carvedilol. She reports no concerns for sexually transmitted infections. She reports pain during urination, which she describes as a burning sensation. She has been under the care of a urologist, who performed a bladder stretching procedure and advised her to return only if she experienced further issues. She has a history of kidney stones, which resolved spontaneously years ago. She underwent a gynecological examination on 08/05/2024, during which a pelvic exam was performed. She was informed of the presence of severe hemorrhoids and a small rectum. Post-examination, she experienced soreness in the pelvic floor, which she initially dismissed as normal. However, the soreness persisted beyond the expected 2-day period. She has been managing her condition with high-fiber foods, including prune juice, which she consumes daily. She recalls a feverish episode a week ago, which she initially attributed to an eye infection that has since resolved. SUBJECTIVE: ALLERGIES: Allergies Allergen Reactions Amiodarone Nausea And Vomiting Amoxicillin Diarrhea Aspirin Other Reaction(s): Other: See Comments Patient states causes Bruising. Cephalexin GI intolerance Egg-Derived Products Other Reaction(s): allergy Erythromycin Unknown Jardiance [Empagliflozin] Angioedema Turned hands different colors and not breathing Meperidine Other Reaction(s): AOF, Other: See Comments, Syncope Patient does not know if she is allergic but know she is not suppose to take it. Meperidine Hcl Unknown Morphine Other Reaction(s): Unknown cause Sulfa Antibiotics GI intolerance Valsartan Wheat Other Reaction(s): allergy Wheat Dextrin Other Reaction(s): allergy Latex Hives and Rash MEDICATIONS: Current Outpatient Medications Medication Instructions carvedilol (Coreg) 6.25 MG tablet TAKE 1 TABLET BY MOUTH DAILY WITH BREAKFAST and WITH evening meal Eliquis 5 mg, 2 times daily famotidine (PEPCID) 40 mg, Oral, Nightly Lipitor 40 mg, Daily LORazepam (ATIVAN) 0.5 mg, Oral, Every 8 hours PRN nitrofurantoin (macrocrystal-monohydrate) (MACROBID) 100 mg, Oral, 2 times daily ondansetron ODT (ZOFRAN-ODT) 4 mg, Oral, Every 8 hours PRN prednisoLONE acetate (Pred-Forte) 1 % ophthalmic suspension Instill 1 drop into left eye three times a day as directed spironolactone (ALDACTONE) 12.5 mg, 2 times daily REVIEW OF SYMPTOMS: Constitutional: See HPI. Musculoskeletal: Mild left lower back pain. Gastrointestinal: See HPI. Infections: Denies at risk for sexually transmitted diseases. Genitourinary: See HPI. OBJECTIVE: Visit Vitals BP 124/70 (BP Location: Left arm, Patient Position: Sitting, BP Cuff Size: Adult) Pulse 73 Temp 97.7 F Ht 5' 3.5 Wt 128 lb 6.4 oz LMP (LMP Unknown) SpO2 99% BMI 22.39 kg/m OB Status Hysterectomy Smoking Status Former BSA 1.61 m BP Readings from Last 3 Encounters: 08/12/24 124/70 08/05/24 130/84 07/01/24 120/80 Wt Readings from Last 3 Encounters: 08/12/24 128 lb 6.4 oz 08/05/24 125 lb 07/01/24 125 lb 12.8 oz General: Well developed, well nourished, in no acute distress sitting upright in chair. Head: Normocephalic/atraumatic. Eyes: No conjunctival irritation. Ears: Grossly normal hearing. Nose: No discharge. Mouth: MMM, talkative. Neck: Supple. Chest: No distress. Abdomen: Abdomen is soft and nontender. No CVA tenderness, bilaterally. Musculoskeletal: Steady gait. Neurologic: Grossly normal. Skin: Skin is warm and dry. Mental Status: Alert and cooperative. Results No results found for: HGBA1C Lab Results Component Value Date CREATININE 0.87 07/03/2024 ASSESSMENT AND PLAN: Assessment & Plan 1. Urinary tract infection (UTI). There is evidence of blood in the urine, which could be due to an infection causing irritation in the bladder. The patient reports urinary frequency and pain on urination, which started after consuming high-fiber foods and an orange. Given several documented allergies to antibiotics, Macrobid 100 mg will be prescribed, to be taken as 1 tablet twice daily for 5 days. She is advised to maintain adequate hydration and ensure proper hygiene by wiping from front to back. If symptoms persist, she should contact the office for further evaluation, potentially for kidney stones. PROCEDURE The patient underwent a gynecological examination on 08/05/2024. Assessment/Plan Diagnoses and all orders for this visit: Dysuria Component Latest Ref Rng 08/12/2024 Color, UA Yellow Clarity, UA Clear Glucose, UA Negative - 2000(110) ++++ mg/dL Negative Bilirubin, UA Negative - 4(70) +++ mg/dL Negative Ketones, UA Negative - 160(16) ++++ mg/dL Negative Specific Wesley, UA 1 - 1.03 1.005 Blood, UA Negative - 50 Pedro/mcL Positive pH, UA 5 - 9 6.0 Protein, UA Negative - 2000(20) ++++ mg/dL Negative Urobilinogen, UA 0.2 - 12 mg/dL 0.2 Leukocytes, UA Negative - 500+++ Ghislaine/mcL Negative Nitrite, UA Negative - Positive Negative - nitrofurantoin, macrocrystal-monohydrate, (Macrobid) 100 MG capsule; Take 1 capsule (100 mg) by mouth in the morning and 1 capsule (100 mg) before bedtime. Do all this for 5 days. Urinary frequency - POCT Urinalysis dipstick - nitrofurantoin, macrocrystal-monohydrate, (Macrobid) 100 MG capsule; Take 1 capsule (100 mg) by mouth in the morning and 1 capsule (100 mg) before bedtime. Do all this for 5 days. Atrial fibrillation, persistent (HCC) (CMS/HCC) Continue current medication regimen. assisted 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 Continue current medication regimen. BMI 22.0-22.9, adult Maintain a healthy weight. Please Note: Portions of this chart may have been created using voice recognition software. Occasional wrong-word or sound-like substitutions may have occurred due to inherent limitations of the voice recognition software. Please read the chart carefully and recognize, using context, where the substitutions have occurred. documented in this encounter [facility] 08-05-2024 History of Present illness Narrative Images from the original note were not included. Rodolfo Boo, DO Obstetrics and Gynecology Asya Asencio 1950 08/05/24 [id number] Yearly Wellness Exam Chief Complaint Patient presents with Gynecologic Exam Medicare off year. LMP: MIR BS 1983 HRT: None Last pap 07-24-23 neg. Last mammogram 12-05-22 [facility] [place]. Not sure when she can do it d/t cardiac issues. Denies breast, urinary, or bowel concerns. Visit Vitals BP 130/84 Ht 5' 3.5 Wt 125 lb LMP (LMP Unknown) BMI 21.80 kg/m OB Status Hysterectomy Smoking Status Former BSA 1.59 m OB History Para Term AB Living 2 2 2 SAB IAB Ectopic Multiple Live Births 2 # Outcome Date GA Lbr Samuel/2nd Weight Sex Type Anes PTL Lv 2 Para Vag-Spont ELEAZAR 1 Para Vag-Spont ELEAZAR Obstetric Comments Heaviest weighed 7 lbs 6 oz Current Outpatient Medications Medication Sig Dispense Refill carvedilol (Coreg) 6.25 MG tablet TAKE 1 TABLET BY MOUTH DAILY WITH BREAKFAST and WITH evening meal prednisoLONE acetate (Pred-Forte) 1 % ophthalmic suspension Instill 1 drop into left eye three times a day as directed Eliquis 5 MG tablet Take 5 mg by mouth in the morning and 5 mg before bedtime. Do not start before July 11, 2023. famotidine (Pepcid) 40 MG tablet Take 1 tablet (40 mg) by mouth at bedtime 30 tablet 11 Lipitor 40 MG tablet Take 40 mg by mouth in the morning. LORazepam (Ativan) 0.5 MG tablet TAKE 1 TABLET BY MOUTH EVERY 8 HOURS NEEDED FOR ANXIETY 90 tablet 0 ondansetron ODT (Zofran-ODT) 4 MG disintegrating tablet Take 1 tablet (4 mg) by mouth every 8 (eight) hours if needed for vomiting or nausea 20 tablet 0 spironolactone (Aldactone) 25 MG tablet Take 12.5 mg by mouth in the morning and 12.5 mg before bedtime. No current facility-administered medications for this visit. Allergies Allergen Reactions Amiodarone Nausea And Vomiting Amoxicillin Diarrhea Aspirin Other Reaction(s): Other: See Comments Patient states causes Bruising. Cephalexin GI intolerance Egg-Derived Products Other Reaction(s): allergy Erythromycin Unknown Jardiance [Empagliflozin] Angioedema Turned hands different colors and not breathing Meperidine Other Reaction(s): AOF, Other: See Comments, Syncope Patient does not know if she is allergic but know she is not suppose to take it. Meperidine Hcl Unknown Morphine Other Reaction(s): Unknown cause Sulfa Antibiotics GI intolerance Valsartan Wheat Other Reaction(s): allergy Wheat Dextrin Other Reaction(s): allergy Latex Hives and Rash Past Surgical History: Procedure Laterality Date AV NODE ABLATION 06/10/2024 BOWEL RESECTION 1996 CYST REMOVAL Left breast OTHER SURGICAL HISTORY 2020 urethra scope OTHER SURGICAL HISTORY 02/28/2024 implantation of biventricular ICD submuscular implant NV TOTAL ABDOM HYSTERECTOMY 1983 MIR BS REFRACTIVE SURGERY Past Medical History: Diagnosis Date Anxiety disorder Atrial fibrillation ([facility]) Chronic rhinitis Chronic sinusitis Constipation due to outlet dysfunction Constipation, unspecified constipation type Dysuria GERD (gastroesophageal reflux disease) Grief reaction with prolonged bereavement ([facility]) Heart murmur HTN (hypertension) ([facility]) Hypothyroidism ([facility]) IBS (irritable bowel syndrome) Palpitation Post-menopausal atrophic vaginitis Rectal sphincter spasm Vaginal stenosis ROS Const: Denies appetite change, fever, chills. Allergy: Denies medication reaction. Ocular: Denies visual acuity change. ENT: Denies hearing change. Endoc: Denies weight loss. Resp: Denies dyspnoea, wheezing. Cardiac: Denies angina, palpitations. GI: Denies nausea, vomiting. Haem: Denies bleeding. : Denies incontinence. MSK: Denies arthralgias, joint oedema. Derm: Denies rash, hair loss. Neuro: Denies ataxia, tremor. Also see HPI for elements of ROS documented therein and for details of positive findings, which shall supersede the foregoing. EXAM GENERAL EXAMINATION alert oriented well developed, well nourished. HEAD: normocephalic atraumatic. EYES: sclera anicteric. EARS: no obvious hearing deficit. NECK/THYROID: neck supple no cervical lymphadenopathy no thyromegaly. LYMPH NODES: no axillary, supraclavicular or inguinal adenopathy. SKIN: warm and dry. HEART: regular rate and rhythm. LUNGS: clear to auscultation bilaterally. CHEST:axillary nodes grossly normal. BREASTS:no masses palpable bilaterally, normal nipples bilaterally - everted -fatty replaced - dense - well supported- axilla negative. ABDOMEN: soft, nontender, nondistended, no masses palpable. BACK: no costovertebral angle tenderness, no obvious scoliosis/kyphosis. 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 EXTREMITIES no edema. NEUROLOGIC: alert and oriented. PSYCH: cooperative with exam. ICD-10-CM 1. Postmenopausal atrophic vaginitis N95.2 Pelvic and breast exam completed. Findings of today's exam discussed with the patient. Continue MSBE. Ca/Vit D recommendations reviewed with the patient. The patient is to contact the office with any changes to her gynecological condition or any changes with breast or bleeding. The patient is to return in 1 year or as needed 2. Breast cancer screening by mammogram Z12.31 Bilateral screening mammogram with tomosynthesis Screening mammogram ordered. Patient to call and schedule. Entered by Martita Newsome MA acting as scribe for Dr. Rodolfo Boo. Signature Martita Newsome MA Date 08/05/24 . Time 3:32 PM . The documentation recorded by the scribe accurately reflects the service(s) I personally performed and the decisions I made. Signature Laura Boo D.O. Date 08/05/24 Time 5:00PM. documented in this encounter [facility] 07-02-2024 Note Patient here for fol low up AV node ablation with Dr. Yao on 06/10/2024. Says she has chest pain and says it's heartburn . Review of Systems Constitutional: Positive for malaise/fatigue. Cardiovascular: Positive for chest pain ( heartburn ) and dyspnea on exertion (intermittent). Hematologic/Lymphatic: Bruises/bleeds easily. Gastrointestinal: Positive for heartburn. Psychiatric/Behavioral: The patient is nervous/anxious. All other systems reviewed and are negative. [facility] 07-02-2024 Note Cardiovascular Medic [facility] SUBJECTIVE Chief Complaint Patient presents with Atrial Fibrillation Palpitations Congestive Heart Failure Valve Disorder Asya Asencio is a 74 y.o. female here for follow-up. HPI PMHx: HFrEF 40% s/p ICD 02/2024, a.fib s/p AVN ablation 05/2024, HTN, hypothyroidism, mitral valve regurg She has overall been doing well since her ablation procedure. She has heartburn with some acid reflux - midsternal, worsens when she lays down. Started after she ate something that she probably shouldn't have. She c/o trouble sleeping. Seems to be improving. She has some VELAZCO, occurs at rest. She notes that when she is out and dancing, she doesn't get SOB. She feels like she has some intermittent palpitations, this feels different than the palpitations she had with a.fib. She is worried about her mitral valve. 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 Paroxysmal atrial fibrillation (CMS/HCC) Presence of biventricular automatic cardioverter/defibrillator (AICD) Past Medical History: Diagnosis Date Abnormal ECG Arrhythmia Atrial fibrillation ([facility]/HCC) CHF (congestive heart failure) ([facility]HCC) Heart murmur Heart valve disease Hypertension Nonischemic cardiomyopathy ([facility]/HCC) Family History Problem Relation Name Age of Onset Coronary artery disease Mother Diabetes Mother Coronary artery disease Father Social History Tobacco Use Smoking status: Former Types: Cigarettes Passive exposure: Past (social smoker stopped in 1989) Smokeless tobacco: Never Substance Use Topics Alcohol use: Never Drug use: Never Allergies Allergen Reactions Amiodarone Nausea And Vomiting Amoxicillin Diarrhea Cephalexin GI intolerance, Nausea And Vomiting and Unknown Egg Derived Other Reaction(s): allergy Empagliflozin Angioedema Turned hands different colors and not breathing Erythromycin Unknown Morphine Unknown and Other Other Reaction(s): Unknown cause Other Reaction(s): Unknown cause Sulfa (Sulfonamide Antibiotics) GI intolerance and Other Valsartan Wheat Bran Other Reaction(s): allergy ROS Constitutional: Positive for malaise/fatigue. Cardiovascular: Positive for chest pain ( heartburn ) and dyspnea on exertion (intermittent). Hematologic/Lymphatic: Bruises/bleeds easily. Gastrointestinal: Positive for heartburn. Psychiatric/Behavioral: The patient is nervous/anxious. All other systems reviewed and are negative. OBJECTIVE Visit Vitals BP 138/84 (BP Location: Left arm, Patient Position: Sitting) Pulse 94 Ht 1.651 m (5' 5 ) Wt 55.8 kg (123 lb) SpO2 98% BMI 20.47 kg/m??? OB Status Postmenopausal Smoking Status Former BSA 1.6 m??? Medications: Current Outpatient Medications: apixaban (Eliquis) 5 mg tablet, Take 1 tablet (5 mg) by mouth in the morning and at bedtime. (Patient taking differently: Take 5 mg by mouth two times daily.), Disp: 180 tablet, Rfl: 3 atorvastatin (Lipitor) 40 mg tablet, Take 1 tablet (40 mg) by mouth in the evening. Do not take at bedtime, Disp: 90 tablet, Rfl: 3 carvedilol (Coreg) 6.25 mg tablet, Take 1 tablet (6.25 mg) by mouth with breakfast and with evening meal., Disp: 180 tablet, Rfl: 3 LORazepam (Ativan) 0.5 mg tablet, Take 1 mg by mouth three times daily., Disp: , Rfl: spironolactone (Aldactone) 25 mg tablet, Take 0.5 tablets (12.5 mg) by mouth in the morning and at bedtime. (Patient taking differently: Take 12.5 mg by mouth once daily as directed.), Disp: 90 tablet, Rfl: 3 Physical Exam Vitals reviewed. Constitutional: Appearance: Normal appearance. She is normal weight. HENT: Head: Normocephalic and atraumatic. Right Ear: External ear normal. Left Ear: External ear normal. Eyes: Extraocular Movements: Extraocular movements intact. Conjunctiva/sclera: Conjunctivae normal. Pupils: Pupils are equal, round, and reactive to light. Neck: Vascular: No carotid bruit. Cardiovascular: Rate and Rhythm: Normal rate and regular rhythm. (more content not included)... [facility] 07-01-2024 History of Present illness Narrative Images from the original note were not included. Asya Asencio is a 74 y.o. female presents with chief complaint of No chief complaint on file. HPI: History of Present Illness The patient is a 74-year-old female who presents for evaluation of multiple medical concerns. She reports an improvement in her overall health but continues to experience significant pain. She underwent a bladder procedure 8 months ago and had a follow-up visit last week. During this visit, she was informed that her bladder did not require further intervention and was advised to perform Kegel exercises to strengthen her pelvic floor. Yesterday, she experienced a decrease in urine output, which she attributes to cold weather and reduced fluid intake. She also noticed a change in the color of her urine and experienced itching and burning during urination, suspecting that overuse of vaginal soap may be a contributing factor. She has gained weight since her procedure, which she believes is due to a change in her diet. She is concerned about potential fluid retention but notes that her legs do not appear swollen. She has been experiencing increased hunger and has been eating more frequently, even waking up at night to eat. She has an appointment with a emergency medical technician tomorrow. She has been taking spironolactone, which has increased her urine output, but she has reduced her dose to half since December 2023. She is interested in having her potassium levels checked due to past issues and is also concerned about her kidney function. She has been following a low-sodium diet, consuming less than 2000 mg per day. She has a history of atrial fibrillation (AFib) and has undergone ablation. She reports feeling tired and sometimes gets out of breath. She is currently on carvedilol, which makes her feel sick to her stomach, and she is no longer taking digoxin. MEDICATIONS: Current Outpatient Medications Medication Instructions carvedilol (COREG) 3.125 mg, Oral, 2 times daily with meals Eliquis 5 mg, 2 times daily Lipitor 40 mg, Daily LORazepam (ATIVAN) 0.5 mg, Oral, Every 8 hours PRN ondansetron ODT (ZOFRAN-ODT) 4 mg, Oral, Every 8 hours PRN spironolactone (ALDACTONE) 12.5 mg, 2 times daily ALLERGIES: Allergies Allergen Reactions Amoxicillin Diarrhea Aspirin Other Reaction(s): Other: See Comments Patient states causes Bruising. Cephalexin GI intolerance Egg-Derived Products Other Reaction(s): allergy Erythromycin Unknown Jardiance [Empagliflozin] Angioedema Turned hands different colors and not breathing Meperidine Other Reaction(s): AOF, Other: See Comments, Syncope Patient does not know if she is allergic but know she is not suppose to take it. Meperidine Hcl Unknown Morphine Other Reaction(s): Unknown cause Sulfa Antibiotics GI intolerance Wheat Other Reaction(s): allergy Wheat Dextrin Other Reaction(s): allergy Latex Hives and Rash Review of Systems General: Denies fever, chills, fatigue, LOERA or weight loss/gain CV: Denies CP, palpitations or swelling in legs Resp: denies cough, SOB or wheezing GI: Denies abd pain/n/v/c/d Skin: Denies rash Neuro: Denies LH or dizziness Medical, Surgical, Family, and Social History reviewed. OBJECTIVE: Visit Vitals BP 120/80 Pulse 86 Temp 97.7 F Ht 5' 5 Wt 125 lb 12.8 oz LMP (LMP Unknown) SpO2 98% BMI 20.93 kg/m OB Status Hysterectomy Smoking Status Former BSA 1.62 m BP Readings from Last 3 Encounters: 07/01/24 120/80 03/28/24 115/70 02/27/24 128/80 Wt Readings from Last 3 Encounters: 07/01/24 125 lb 12.8 oz 03/28/24 113 lb 12.8 oz 02/27/24 113 lb 12.8 oz Physical Exam Physical Exam Lungs sound good. Heart sounds good. No fluid retention in the legs. General: alert & oriented, NAD Head: NC/AT Oral Cavity: MMM Skin: warm, dry Heart: RRR, No m/r/g, S1S2 nml Lungs: CTA b/l Abdomen: soft, ND/NT, BS wnl Musculoskeletal: normal gait Extremities: no clubbing, cyanosis or edema Neurological: nonfocal Psych: mood/affect full range Results Laboratory Studies Urine test showed no bacteria. ASSESSMENT AND PLAN: Assessment & Plan 1. Post-ablation symptoms. She reports feeling tired and occasionally out of breath, which she found to be normal after ablation based on her research. She will follow up with the emergency medical technician and nurse practitioner tomorrow to check her progress. 2. Bladder procedure follow-up. She had a bladder procedure 8 months ago and a follow-up last week where no further intervention was needed. She reports occasional discomfort and changes in urine appearance. A urine culture will be sent to ensure there is no infection. She is advised to start Kegel exercises to strengthen her pelvic floor. 3. Weight gain. She is concerned about sudden weight gain after her procedure. Her blood pressure and heart rate are good, and there are no signs of fluid retention. She is advised to monitor her weight and maintain a balanced diet. 4. Medication management. She is currently off digoxin and has reduced her spironolactone dose to half since December due to excessive urination and dehydration. She will discuss the potential discontinuation of carvedilol with her nurse practitioner tomorrow due to its side effects. 5. Health Maintenance. A comprehensive metabolic panel will be ordered to check her kidney function, potassium levels, and other electrolytes. She is advised to maintain adequate hydration. Follow-up Return on Monday for blood tests. Assessment/Plan Problem List Items Addressed This Visit None Visit Diagnoses Dysuria Relevant Orders POCT Urinalysis dipstick (Completed) Comprehensive metabolic panel Urine culture There are no preventive care reminders to display for this patient. documented in this encounter [facility] 06-27-2024 Note [facility] 06-27-2024 History of Present illness Narrative Asay Asencio is a 74 year old female [...] worse. Denies any leakage, recent infections, hematuria. She is here today for cystoscopy CYSTOSCOPY M.DElise'S 30 DAY PHYSICAL EXAM Primary Indication: Bladder Outlet Obstruction Review of Systems is unchanged. The Procedure Indications, Risks, benefits, alternatives and personnel were discussed with the patient who consents to proceed. Cystoscopy was performed under local anesthesia in the office setting using lidocaine 2% jelly. The findings were as follows: Urethra: normal, no lesions, no foreign body or obstruction, no overt evidence of a urethral diverticulum Bladder:clear ureteric orifices bilaterally, no lesions, no tumors or trabeculation Operation: Cystoscopy Anatomic Site:Bladder Approach: Endoscopic Device: None Qualifier: None Impression/ Plan/Follow up: No need for urethral dilatation at the time being 2. Behavioral modification advice 3. Reassured Hunter Rodriguez MD Clinical Fellow The patient was advised to maintain routine follow up with us in one year or sooner if any issues arise. Attending Note I evaluated the patient and personally participated in the mansfield components. I agree with the resident's findings and plan as documented and have discussed the case and management of the patient's care with the resident. @POCVISITLIST@ Signature: Raphael Goldsmith MD Date: June 27, 2024 Time: 11:54 AM Raphael Goldsmith MD [facility]Urology [facility] [place] [facility] Monse documented in this encounter [facility] 06-27-2024 Nurse Note PROCEDURE NURSE ASSESSMENT Patient ID with two(2)identifiers verified by: Clarice Gardiner MA Procedure Indication: Cystoscopy June 27, 2024, Time In: 1100 Consent signed:Yes Back Office UA obtained: no Antibiotic given: No Heart valve replacement: No Joint replacement: Yes (Please inform provider if either above replacements were within the last 2 years) Patient Prep: Betadine Scrub to perineum and placement of Sterile Drape. COMPLETED UNIVERSAL PROTOCOL / SAFETY CHECKLIST Procedure to be performed: Cystoscopy Sign in Communication: Completed Time Out: Team Confirms the Correct Patient, Correct Procedure, Correct Site and Site Marking, Correct Position (if applicable) Sign Out Discussion: Completed Instruction sheet given and reviewed and patient verbalizes understanding: yes Clarice Gardiner MA [facility] 06-27-2024 Instructions Clarice Gardiner MA - 06/27/2024 10:59 AM EST [facility] DR. RAPHAEL GOLDSMITH AFTER YOUR CYSTOSCOPY You have undergone a cystoscopy. Your doctor has inserted a scope into your urinary bladder through your urethra to view the inside of your bladder and/or urethra. WHAT TO EXPECT: Possible burning during urination and/or blood tinged urine. WHAT TO DO: Resume normal activity and medications. Drink 6-8 glasses of fluid each day for 3 days to help flush your urinary system. WHEN TO CALL THE DOCTOR: If you have a fever over 100 degrees Fahrenheit. If you are unable to urinate. If blood clots form in your urine. If your urine becomes very bloody and does not clear with drinking extra fluids. Between the hours of 9 am and 5 pm, call your doctor's office: Dr. Raphael Goldsmith M.D., Office PH#: [phone] After 5 pm and on weekends: Call [phone] and ask for the urologist traction power engineer. The doctor will need to know that you have had a cystoscopy and what symptoms you are having. documented in this encounter [facility] 06-27-2024 Nurse Note PROCEDURE NURSE ASSESSMENT Patient ID with two(2)identifiers verified by: Clarice Gardiner MA Procedure Indication: Cystoscopy June 27, 2024, Time In: 1100 Consent signed:Yes Back Office UA obtained: no Antibiotic given: No Heart valve replacement: No Joint replacement: Yes (Please inform provider if either above replacements were within the last 2 years) Patient Prep: Betadine Scrub to perineum and placement of Sterile Drape. COMPLETED UNIVERSAL PROTOCOL / SAFETY CHECKLIST Procedure to be performed: Cystoscopy Sign in Communication: Completed Time Out: Team Confirms the Correct Patient, Correct Procedure, Correct Site and Site Marking, Correct Position (if applicable) Sign Out Discussion: Completed Instruction sheet given and reviewed and patient verbalizes understanding: yes Clarice Gardiner MA POST INSTRUCTIONS Cystoscopy Procedure DR. RAPHAEL GOLDSMITH You have undergone a Cystoscopy Procedure. Your doctor has inserted a telescope into your urinary bladder through your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 MCMAHON_ Date _09/18/2023_. The documentation recorded by the scribe accurately reflects the service(s) I personally performed and the decisions I made. documented in this encounterWestern Missouri Mental Health [id number] Evaluation + Plan note Extracted from: Title:ED Note Author:Parveen Ayers DOElise Date :09/17/23 Acid reflux (K21.9: Gastro-e sophageal [...] Date:01/24/2024 02:30:00 PM Scheduled Provider:Micheline BROOKS MD Location:[facility] Appointment Type:URO Office Visit Future Scheduled Tests Laboratory* Basic Metabolic Panel 07/12/23 * Digoxin Level 07/12/23 [facility]02-04-2024 Hospital Discharge instructions Patient Education 09/17/2023 [...] medicines that you are allergic to. Take obbh-shr-xjywdpj and prescription medicines only as told by your health care provider. If you were given medicines to treat your allergic reaction, do not drive until your health care provider tells you it is safe. If you have hives or a rash: ?Use an fkxd-swy-hnwtloa antihistamine as told by your health care [...] provider. Document Revised: 01/10/2022 Document Reviewed: 01/10/2022 Getix Patient Education 2022 Getix Inc. 09/17/2023 06:16:25 Heartburn Heartburn Heartburn is a [...] powder, vinegar, hot sauces, and barbecue sauce. ?Gibson fruit juices and citrus fruits, such as oranges, ronald, and limes. ?Tomato-based foods, such as red sauce, chili, salsa, and pizza with red sauce. ?Fried and fatty foods, such as donuts, romanian fries, potato chips, and high-fat dressings. ?High-fat [...] ask your health care provider. Medicines Take hrua-ugu-pfnrmpi and prescription medicines only as told by [...] told by your health care provider. Take ehdb-vcm-fnzvefe and prescription medicines only as told by [...] provider. Document Revised: 02/03/2021 Document Reviewed: 02/03/2021 Getix Patient Education 2022 Getix Inc. Follow Up Care 09/17/2023 04:56:21 With:Peggy Nazario Address: [address] [place] [address] [place] [phone]- Business (1) When:Within 3 Day(s) [facility]02-04-2024 Miscellaneous Notes* Telephone Encounter - Carmina Mcmahan APRN.[facility] - 09/17/2023 6:25 AM EST Patient reported that she went to the ED, said her blood pressure was up instead of down this time . I didn't sleep, I can't take that medicine, there's something that don't agree with me. She reiterates that she can't take that medication (valsartan) again. Carmina Mcmahan APRN.CNP [facility] SOULEYMAN[facility] Drilling Machine Operator 09/17/2023 6:29 AM documented in this encounterBarney [facility]02-04-2024 Miscellaneous Notes* Telephone Encounter - Carmina Mcmahan APRN.CNP - 09/17/2023 4:21 AM EST [facility] Center Inbound Phone Encounter DATE of SERVICE: 09/17/2023 TIME of SERVICE: 4:21 AM Status: Urgent Service/Provider: Clinical Cardiology Alea Harley MD Reason for call: Medication Issue/Question Contact information: [phone] Resolution: Reinforced education and Sent to [employer] Comments: Patient calling after waking up with [...] to try. Carmina Mcmahan APRN.CNP [facility] Drilling Machine Operator Date of Resolution: 09/17/2023 Time of Resolution 4:21 AM documented in this encounterBarney Children'S [facility] Center02-02-2024 Telephone encounter Note * Telephone Encounter - Rupal Lemus - 09/15/2023 1:24 PM EST Pt calls to check status of this, wants this done as quickly as possible, states that she will haveto cut pills in half to make it through the weekend and missed one last night. [facility] [id number] Miscellaneous Notes* Telephone Encounter - Rupal Lemus [...] [facility] * Telephone Encounter - Farrukh Mcmahan MA - 09/13/2023 11:06 AM EST Rx signed yesterday * Telephone Encounter - Candis Amaro - 09/13/2023 11:01 AM EST Pt calls for refill of lorazepam is almost out will be out completely on monday documented in this encounterNOMS [id number] Telephone encounter Note* Telephone Encounter - Candis Amaro - 09/15/2023 9:49 AM EST Pt calls to ask [facility] HospitalCtydlucrin02-11-6531 Telephone encounter Note* Telephone Encounter - Candis Amaro - 09/13/2023 11:25 AM EST Pt said she would [facility] [id number] Telephone encounter Note* Telephone Encounter - Farrukh Mcmahan MA - 09/13/2023 11:06 AM EST Rx signed yesterday [facility] [id number] Telephone encounter Note* Telephone Encounter - Candis Amaro - 09/13/2023 11:01 AM EST Pt calls for refill of lorazepam is almost out will be out completely on monday [facility] [id number] Evaluation + Plan noteExtracted from: Title:ED Note [...] Date:01/24/2024 02:30:00 PM Scheduled Provider:Micheline BROOKS MD Location:[facility] Appointment Type:URO Office Visit Future Scheduled Tests Laboratory* Basic Metabolic Panel 07/12/23 * Digoxin Level 07/12/23 [facility]01-30-2024 Hospital Discharge instructions Patient Education 09/12/2023 [...] as meditation or yoga. General instructions Take ljeb-sgk-egnktag and prescription medicines only as told by [...] provider. Document Revised: 05/20/2022 Document Reviewed: 05/20/2022 Getix Patient Education 2022 Labtiva. 09/12/2023 06:47:40 Gastroesophageal Reflux Disease, Adult Gastroesophageal [...] powder, vinegar, hot sauces, and barbecue sauce. ?Gibson fruit juices and citrus fruits, such as oranges, ronald, and limes. ?Tomato-based foods, such as red sauce, chili, salsa, and pizza with red sauce. ?Fried and fatty foods, such as donuts, romanian fries, potato chips, and high-fat dressings. ?High-fat [...] to any changes in your symptoms. Take xllz-njb-dtoqrfc and prescription medicines only as told by [...] you have new or worsening symptoms. Take kwgt-vat-xinkxtj and prescription medicines only as told by [...] provider. Document Revised: 02/08/2021 Document Reviewed: 02/08/2021 Getix Patient Education 2022 Labtiva. Follow Up Care 09/12/2023 04:04:55 With:Peggy Nazario Address: [address] [place] [phone] Business (1) When:Within 3 Day(s) [facility] 08-27-2023 [facility]14-20[facility] History of Past illness Narrative* Problem Noted Date Diagnosed Date Resolved Date Acute on chronic systolic co ngestive heart failure 08/26/2023 08/27/2023 documented as of this encounter (statuses as of 09/17/2023) [facility]01[facility] History of Past illness Narrative* Problem Noted Date Diagnosed Date Resolved Date Acute on chronic systolic co ngestive heart failure 08/26/2023 08/27/2023 documented as of this encounter (statuses as of 09/21/2023) [facility]01[facility] History of Past illness Narrative* Problem Noted Date Diagnosed Date Resolved Date Acute on chronic systolic co ngestive heart failure 08/26/2023 08/27/2023 documented as of this encounter (statuses as of 09/26/2023) [facility]01-[facility] History of Past illness Narrative* Problem Noted Date Diagnosed Date Resolved Date Acute on chronic systolic co ngestive heart failure 08/26/2023 08/27/2023 documented as of this encounter (statuses as of 09/26/2023) [facility]01[facility] History of Past illness Narrative* Problem Noted Date Diagnosed Date Resolved Date Acute on chronic systolic co ngestive heart failure 08/26/2023 08/27/2023 documented as of this encounter (statuses as of 09/29/2023) [facility] History of Past illness Narrative* Problem Noted Date Diagnosed Date Resolved Date Acute on chronic systolic co ngestive heart failure 08/26/2023 08/27/2023 documented as of this encounter (statuses as of 10/02/2023) [facility]01[facility] History of Past illness Narrative* Problem Noted Date Diagnosed Date Resolved Date Acute on chronic systolic co ngestive heart failure 08/26/2023 08/27/2023 documented as of this encounter (statuses as of 10/16/2023) [facility] History of Past illness Narrative* Problem Noted Date Diagnosed Date Resolved Date Acute on chronic systolic co ngestive heart failure 08/26/2023 08/27/2023 documented as of this encounter (statuses as of 10/17/2023) [facility] History of Past illness Narrative* Problem Noted Date Diagnosed Date Resolved Date Acute on chronic systolic co ngestive heart failure 08/26/2023 08/27/2023 documented as of this encounter (statuses as of 10/20/2023) [facility]01-13-2024 NoteHNO ID: [id number] Author: NOTE, INTERFACE, ? Service: ? Author Type: ? Type: Progress Notes Filed: 08/26/2023 02:15 Note Text: Epic Scheduled Downtime: 08/26/2023 1:00:00 AM to 08/26/2023 2:04:22 [facility]01-10[facility]23 NoteProcedure The risk/benefits of the procedure were thoroughly explained to patient including specific attention to lack of onsite surgical backup, and written informed consent was obtained. Airway Assessment: Class II: Visualization of the soft palate, fauces, uvula Airway Abnormalities: none ASA Classification: ASA 2: A patient with mild systemic disease Risks/Benefits of IV Sedation: Have been explained IV Sedation Plan: Patient agrees to IV sedation plan_ Assessment/Plan Ordered: aspirin, 81 mg = 1 tab(s), Tab-EC, Oral, Daily, Routine, Start date 07/04/23 9:00:00 EST, 07/04/23 8:00:00 EST clopidogrel, 300 mg = 4 tab(s), Tab, Oral, Once, Stop date 07/04/23 8:00:00 EST, Routine, Start date 07/04/23 8:00:00 EST, 07/04/23 7:59:00 EST clopidogrel, 75 mg = 1 tab(s), Tab, Oral, Daily, Routine, Start date 07/04/23 9:00:00 EST, :59:00 EST digoxin, 125 microgram = 1 tab(s), [...] Education Routine Capillary Glucose POC Saline Lock InsertMercer County Community HospitalComment on above:Result Comment: Electronically Signed By: MARTINEZ MCMAHON, Johan Ribeiro.br\Date and Time Signed: 07/05/23 06:48 [id number] History of Present illness Narrative* Farrukh Mcmahan MA - 08/11/2023 8:45 AM EST Asya Asencio is a 73 y.o. female presents today to follow up on anxiety. HPI: Pt here today for follow up on anxiety. Pt states yesterday she had a panic attack. She received a bill from [facility] that made her very upset and she had a panic attack. She felt like she couldn't catchher breath the rest of the day. Pt is currently on holter monitor. Pt has instructions from [facility] that she is confused about and would like to discuss. Pt states she is very tired and doesn't know why. SUBJECTIVE: MEDICATIONS: Current Outpatient Medications Medication Instructions aspirin 81 mg, Oral, Once carvedilol (COREG) 3.125 mg, Oral, 2 times daily with meals digoxin (LANOXIN) 125 mcg, Oral Eliquis 5 mg, Oral, 2 times daily furosemide (LASIX) 40 mg, Oral, Daily Lipitor 40 mg, Oral, Daily LORazepam (ATIVAN) 1 mg, Oral, Every 6 hours losartan (COZAAR) 25 mg, Oral, Daily ondansetron ODT (ZOFRAN-ODT) 4 mg, Oral, Every 8 hours PRN ALLERGIES: Allergies Allergen Reactions Amoxicillin Diarrhea Aspirin [...] REVIEW OF SYMPTOMS: Review of Systems Constitutional: Positive for fatigue. Negative for chills and fever. HENT: Negative for congestion, ear pain, sinus pressure, sinus pain, sore throat and trouble swallowing. Eyes: Negative for pain and visual disturbance. Respiratory: Negative for cough, choking, chest tightness, shortness of breath and wheezing. Cardiovascular: Negative for chest pain and palpitations. Gastrointestinal: Negative for abdominal pain, blood in stool, constipation, diarrhea, nausea and vomiting. Genitourinary: Negative for difficulty urinating, dysuria and urgency. Musculoskeletal: Negative for arthralgias, joint swelling and myalgias. Skin: Negative for color change, rash and wound. Neurological: Negative for dizziness, weakness, light-headedness and headaches. Psychiatric/Behavioral: Negative for behavioral problems, hallucinations, sleep disturbance and suicidal ideas. The patient is nervous/anxious. Endocrine: Negative for cold intolerance, heat intolerance, polydipsia and polyuria. OBJECTIVE: Visit Vitals BP 122/68 Pulse 69 Temp 97.9 F Ht 5' 5 Wt 116 lb 12.8 oz LMP (LMP Unknown) SpO2 99% BMI 19.44 kg/m OB Status Hysterectomy Smoking Status Former BSA 1.56 m Physical Exam Constitutional: Comments: thin HENT: Head: Normocephalic and atraumatic. Eyes: Extraocular Movements: Extraocular movements intact. Cardiovascular: Rate and Rhythm: Normal rate. Comments: Irregularly irregular but quiet, no murmur heard Pulmonary: Effort: Pulmonary effort is normal. Breath sounds: Normal breath sounds. Musculoskeletal: General: Normal range of motion. Cervical back: Normal range of motion. Skin: General: Skin is warm and dry. Neurological: General: No focal deficit present. Mental Status: She is alert. Psychiatric: Mood and Affect: Mood normal. Behavior: Behavior normal. ASSESSMENT AND PLAN: Assessment/Plan Diagnoses and all orders for this visit: Anxiety Assessed. Continue current treatment plan. Chronic fatigue syndrome Discussed. documented in this encounterWestern Missouri Mental Health [id number] Miscellaneous Notes* Telephone Encounter - Rebecca Fernandez - 07/24/2023 10:22 AM EST [place] * Telephone Encounter - Katie Nicholson - 07/24/2023 10:08 AM EST Please register insurance Thank you! [facility] Note [id number] [facility] 07-21-2023 Evaluation + Plan noteExtracted from: Title:Procedure Note Heart & Vascular Author:LEYDA KELLER MD, Johan Patino Date:07/21/23 Ordered: benzocaine/butamben/tetracaine topical, 3 spray(s), [place]-Top, Topical, q2min PRN Other (see comment), Routine, [...] Oxygen Therapy Saline Lock Insert Suctioning HAROON ([facility]) Vital Signs Future Appointments Appointment Date:01/24/2024 02:30:00 PM Scheduled Provider:Micheline BROOKS MD Location:[facility] Appointment Type:URO Office Visit Future Scheduled Tests Laboratory* Basic Metabolic Panel 07/12/23 * Digoxin Level 07/12/23 [facility]12-08-2023 Hospital Discharge instructions Patient Education 07/21/2023 08:44:29 CV - Post-Transesophageal Echocardiogram (Custom) [place], [place] POST-TRANSESOPHAGEAL ECHOCARDIOGRAM AFTER THE PROCEDURE: Diet: [...] appointment Seek Medical Care if: Notify your scientist electronics should you have any difficulty swallowing or coughing up blood. In the event you are unable to reach your scientist electronics, please call [facility] at [phone] and the automatic profile shaper operator will assist you. Follow Up Care 07/20/2023 11:03:45 With:Johan HENRIQUEZ Address: [address] [place] [phone] Business (1) When: Unknown Comments:-After your appointment with [facility]12-08-2023 NoteProcedure The risk/benefits of the procedure were thoroughly explained to patient including specific attention to lack of onsite surgical backup, and informed written consent was obtained. Airway Assessment: Class II: Visualization of the soft palate, fauces, uvula Airway Abnormalities: none ASA Classification: ASA 2: A patient with mild systemic disease Risks/Benefits of IV Sedation: Have been explained IV Sedation Plan: Patient agrees to IV sedation plan_ Assessment/Plan Ordered: benzocaine/butamben/tetracaine topical, 3 spray(s), [place]-Top, Topical, q2min PRN Other (see comment), Routine, Start date 07/21/23 7:00:00 EST fentanyl, 100 microgram = 2 mL, Injection, IV Push, q2min PRN Other (see comment) for 4 dose(s), Stop date Limited # of times, Routine, Start date 07/21/23 7:00:00 EST, 07/21/23 7:00:00 EST midazolam, 2 mg = 2 mL, Injection, IV Push, As Directed PRN Other (see comment) for 4 dose(s), Stopdate Limited # of times, Routine, Start date [...] Oxygen Therapy Saline Lock Insert Suctioning HAROON ([facility]) Vital SignsMer[facility] HospitalComment on above:Result Comment: Electronically Signed By: MARTINEZ MCMAHON, Johan Ribeiro.br\Date and Time Signed: 07/21/23 07:09 [id number] Evaluation + Plan note Future Appointments Appointment Date:07/21/2023 08:00:00 AM Scheduled [facility]: [facility] CU () Appointment Date:07/21/2023 08:00:00 AM Scheduled Provider: [facility] Echo () Appointment Date:01/24/2024 02:30:00 PM Scheduled Provider:Micheline BROOKS MD Location:[facility] Appointment Type:URO Office Visit Future Scheduled Tests Laboratory* Basic Metabolic Panel 07/12/23 * Digoxin Level 07/12/23 Radiology* Echo Transesophageal 2D 07/21/23 [facility]11-29-2023 Evaluation + Plan note Future Scheduled Tests Laboratory* Basic Metabolic Panel 07/12/23 * Digoxin Level 07/12/23 [facility] 11-24-2023 Hospital Discharge instructions Patient Education 07/07/2023 13:04:14 [...] competition. Stress normally passes after the triggering ev ent has ended. Anxiety is caused by something [...] health careprovider. Avoid caffeine, alcohol, and certain grcc-etd-denehjr cold medicines. These may make you feel worse. Ask your pharmacist which medicines to avoid. General instructions Take mrzu-yrb-htlzogl and prescription medicines only as told by [...] Depression Association of [place] (ADAA): www.adaa.org National [place] on Mental Illness (YANI): www.yani.org Contact a [...] department or: Call your local emergency services (987 in the [place] Call a suicide crisis helpline, such as the National Suicide Prevention Lifeline at or 546 in the [place] This is open 24 hours a day in the [place] Text the Crisis Text Line at 584743 (in the [place] Summary Taking steps to [...] provider. Document Revised: 02/23/2022 Document Reviewed: 11/21/2021 [employer] Patient Education 2022 [employer] 07/07/2023 13:04:14 Atrial Fibrillation Atrial Fibrillation [...] electrical signals of the heart. An ambulatory ekg monitor tech to record your heart's activity for a [...] provider. Document Revised: 01/22/2020 Document Reviewed: 01/22/2020 [employer] Patient Education 2022 [employer]. Follow Up Care 07/07/2023 08:56:48 With:Johan HENRIQUEZ Address: [address] [place] [address]- [phone] Business (1) When:07/10/2023 12:45:48 With:Peggy Nazario Address: [address] [place] [address]- Business (1) When:07/10/2023 12:45:46 [facility]11-24-2023 NoteAdmission and Discharge Information Admitting Physician - Noman PATTON DO Consulting Physician - Shell MCMAHON, Eb Yeh [facility] Cardio, XXXX Admitting Diagnoses: Discharge Diagnoses 1. Atrial fibrillation with RVR, 07/03/2023 2. Acute systolic congestive heart failure, 07/04/2023 3. Severe mitral regurgitation, 07/05/2023 4. Elevated troponin, 07/03/2023 5. Mild coronary artery disease, 07/05/2023 6. anxiety, 07/06/2023 7. Pleural effusion, 07/03/2023 8. Urinary hesitancy, 07/03/2023 9. Other urethral stricture, female, 07/03/2023 10. Urinary retention, 07/03/2023 11. Constipation, 07/03/2023 12. On deep vein thrombosis (DVT) prophylaxis, 07/03/2023 Genitourinary problem, 07/02/2023 Procedure History Cardiac catheterization, combined right and left heart (07/05/2023), Cystourethroscopy with dilation of urethral stricture (10/25/2022), Cystoscopy (02/23/2021), Dilation of urethra (02/01/2019), Cystourethroscopy with dilation of urethral stricture (10/10/2017), colon resection, Corneal implant, Cy stoscopy, Dilation of urethra, Hysterectomy, Tonsillectomy. Hospital Course 73-year-old female with history of urethral stricture with previous dilations, anxiety disorder presented with complaints of urinary hesitancy, constipation, intermittent cough and shortness of breath. She was [facility] with acute paroxysmal atrial fibrillation with rapid ventricular response?new onset, acute systolic congestive heart failure, elevated troponin, severe mitral regurgitation and tricuspid regurgitation, mild coronary artery disease. She was seen in consultation by the scientist electronics and underwent cardiac catheterization and echo cardiogram. Echocardiogram showed reduced ejection fraction of 30 to 35% with severe mitral valve regurgitation and tricuspid valve regurgitation. Cardiac catheterization showed mild coronary artery disease and confirmed ejection fraction reduction. Cardiac catheterization also confirmed severe mitral valve regurgitation with dilated atrium. She was treated with IV Cardizem, Lovenox, aspirin, losartan, Coreg and Lipitor. A Robles catheter was placed during this admission with plans for the patient to be seen by the urologist as outpatient. She was also seen by the urologist during this admission. Patient's overall condition improved and she was anxious to be discharged home. She was discharged home on Coreg, digoxin, Eliquis, losartan, Lasix and aspirin. Plan is for patient to follow-up with a scientist electronics as well as the urologist as outpatient. She may need valvular repair or replacement after follow-up with the scientist electronics and may also require HAROON as per the scientist electronics. Discharge time: 35 minutes. I spent 35 minutes in seeing, evaluating, educating patient on her conditions, coordinating care plan, medication reconciliation, speaking with consultants, nursing staff and case management. Physical Exam Vitals & Measurements 36.5 ?C, 77/M, 16/M, 97/60, 93% on room air General: alert, no acute distress Skin: warm, dry Head: no trauma, normocephalic Neck: Trachea midline, no adenopathy, no tenderness Eye: normal conjunctiva, sclera clear ENMT: TM's clear, oral mucosa moist, no pharyngeal erythema or exudate Cardiovascular: regular rate and rhythm, normal peripheral perfusion Respiratory: Lungs CTA, respirations non labored Chest wall: no deformity. Gastrointestinal: soft, non distended, no tenderness, no guarding. Bowel sounds intact. Genitourinary: Robles catheter in place and draining urine. Back: No tenderness, Normal ROM, Normal alignment. Extremities: no deformity, no trauma Neurological: oriented x 4, LOC appropriate for age, CN II-XII intact, motor strength equal & normal bilaterally, sensation equal & normal bilaterally, speech normal Psychiatric: cooperative, affect appropriate for age, normal judgement, normal psychiatric thoughts. Laboratory Results Automated Diff (07/02/2023) Neutro Auto - 76.7 % Lymph Auto - 15.3 % [place] Auto - 7.7 % Eos Auto - 0.0 % Basophil Auto - 0.3 % Neutro Absolute - 4.7 E9/L Lymph Absolute - 0.9 E9/L [place] Absolute - 0.5 E9/L Eos Absolute - 0.0 E9/L Basophil Absolute - 0.0 E9/L BMP (07/06/2023) Glucose Lvl - 91 mg/dL BUN - 12 mg/dL Creatinine - 0.7 mg/dL BUN/Creat Ratio - 17 Sodium Lvl - 138 mmol/L Potassium Lvl - 3.9 mmol/L Chloride - 109 mmol/L CO2 - 28 mmol/L AGAP - 5 mEq/L Calcium Lvl - 8.0 mg/dL Capillary Glucose POC (07/05/2023) Glucose Cap - 79 mg/dL POC Device SN - [id number] POC User ID - [id number] POC Username - NIKHIL PAULSON CBC w/ Auto Diff (07/02/2023) WBC - 6.2 E9/L RBC - 4.3 E12/L Hgb - 12.7 gm/dL Hct - 38.5 % MCV - 90.3 fL MCH - 29.7 pg MCHC - 32.9 gm/dL RDW - 13.5 % Platelet - 183.0 E9/L MPV - 9.1 fL eGFR (07/06/2023) eGFR - 90 mL/min/1.73 m2 Fasting Lipid Profile (07/03/2023) Chol - 145 mg/dL Trig - 85 mg/dL HDL - 43 mg/dL (more content not included)...[facility] HospitalComment on above:Result Comment: Electronically Signed By: Nahid SERRATO MD\.br\Date and Time Signed: 07/07/23 12:07 [id number] Evaluation + Plan noteExtracted from: Title:APSO Note Author:Nahid SERRATO MD Date:09/05/22 73-year-old female with history of ureteral stricture with previous dilations, anxiety disorder presented with complaints of urinary hesitancy, constipation, cough and shortness of breath and was admitted to [facility] with acute paroxysmal atrial fibrillation with [...] IV Cardizem drip. Continue on Coreg, digoxin. Morale Officer debating on starting patient on amiodarone. Eliquis to start in 4 days after cardiac catheterization. Ordered: [facility] Hospital Care/Day Moderate 35 Minutes [id number] 2. Acute systolic congestive heart failure (I50.21: Acute systolic (congestive) heart failure) Acute systolic congestive heart failure present on admission. Seen by scientist electronics and underwent cardiac catheterization that showed mild coronary artery disease. Also shows severe mitral regurgitation and tricuspid regurgitation with ejection fraction of 30 to 35%. Continue on aspirin, Coreg, losartan and Lasix. [facility]: [facility] Moderate 35 Minutes 34519 3. Severe mitral regurgitation (I34.0: Nonrheumatic mitral (valve) insufficiency) As seen on cardiac catheterization. Patient will follow-up with scientist electronics for HAROON and then valvular repair. Morale Officer also considering transferring patient to or [facility]. Or[facility]: [facility]/Day Moderate 35 Minutes 82356 4. Elevated troponin (R79.89: Other specified abnormal findings of blood chemistry) Secondary to type II non-ST segment elevation myocardial infarction from above and mild coronary artery disease.. Seen by scientist electronics and underwent cardiac catheterization that showed mild coronary artery disease. Continue on aspirin, Lipitor, and Coreg. Ordered: [facility] Care/Day Moderate 35 Minutes 08638 5. Mild coronary artery disease (I25.10: Atherosclerotic heart disease of [place] coronary artery without angina pectoris) As seen on cardiac catheterization on 07/05/2023. Continue on Lipitor and aspirin. Ordered: [facility] Care/Day Moderate 35 Minutes 20747 6. anxiety (F41.9: Anxiety disorder, unspecified) Increase [...] urine, unspecified) Seen by urologist. Status post Robels catheter placement. Follow-up with urologist as outpatient. 11. Constipation (K59.00: Constipation, unspecified) Resolved. Discontinue MiraLAX. 12. On deep vein thrombosis (DVT) prophylaxis (Z79.899: Other rat exterminator (current) drug therapy) SCDs. Eliquis to resume in 4 days. Disposition: Home soon today if heart rate is under good control with plans to follow-up with scientist electronics and urologist as outpatient. However if heart rate is still elevated then we will call [facility] or [facility] to see if we can transfer patient for valve repair/replacement. I discussed the diagnosis and plan of care with the patient at the bedside. Moderate level of MDM based on addressing above issues. This documentation was transcribed using voice recognition software. Several attempts were made to ensure accuracy. However inadvertent computerized business process engineer errors may be present. Nahid Serrato. Hospitalist. [...] Extra Lav Tube Extracted from: Title:Progress/SOAP Note Author:Remberto HENRIQUEZ MD Date:07/06/23 1. Atrial fibrillation with RVR (I48.91: [...] to transfer the patient directly to the [facility] or [facility] given her logistic challenges with getting [...] artery disease (I25.10: Atherosclerotic heart disease of [place] coronary artery without angina pectoris) 6. Pleural effusion (J90: Pleural effusion, not elsewhere classified) 7. Urinary hesitancy (R39.11: Hesitancy of micturition) 8. Other urethral stricture, female (N35.82: Other urethral stricture, female) 9. Urinary retention (R33.9: Retention of urine, unspecified) 10. Constipation (K59.00: Constipation, unspecified) 11. On deep vein thrombosis (DVT) prophylaxis (Z79.899: Other rat exterminator (current) drug therapy) Orders: acetaminophen, 650 mg [...] shortness of breath and was admitted to [facility] with acute paroxysmal atrial fibrillation with [...] date 07/06/23 9:00:00 EST, 07/05/23 11:13:[address] [facility] Hospital Care/Day Moderate 35 Minutes 44186 2. Acute systolic congestive heart failure (I50.21: Acute systolic (congestive) heart failure) Acute systolic congestive heart failure present on admission. Seen by scientist electronics. She is status post cardiac catheterization that showed mild coronary artery disease. Also showed severe mitral regurgitation and tricuspid regurgitation.. Ejection fraction of 30 to 35%. Continue on aspirin, Coreg, losartan, Lasix. Ordered: [facility] Hospital Care/Day Moderate 35 Minutes 48375 3. Severe mitral regurgitation (I34.0: Nonrheumatic mitral (valve) insufficiency) Severe mitral regurgitation seen on cardiac catheterization. Follow-up with scientist electronics as outpatient for HAROON and then valvular repair. Ordered: [facility] Hospital Care/Day Moderate 35 Minutes 72640 4. Elevated troponin (R79.89: Other specified abnormal findings of blood chemistry) Secondary to type II non-ST segment elevation myocardial infarction from above and mild coronary artery disease.. Seen by scientist electronics and underwent cardiac catheterization that showed mild coronary artery disease. Continue on aspirin, Lipitor, and Coreg. Ordered: furosemide, 40 mg = 1 tab(s), Tab, Oral, Daily, Routine, Start date 07/06/23 9:00:00 EST, 07/05/23 11:13:[address] [facility] Hospital Care/Day Moderate 35 Minutes 09801 5. Mild coronary artery disease (I25.10: Atherosclerotic heart disease of [place] coronary artery without angina pectoris) As seen on cardiac catheterization on 07/06/2023. Continue on Lipitor and aspirin. Ordered: [facility] Hospital Care/Day Moderate 35 Minutes 59320 6. Pleural effusion (J90: Pleural effusion, not [...] deep vein thrombosis (DVT) prophylaxis (Z79.899: Other [place] (current) drug therapy) Lovenox. Disposition: Home in a.m. to follow-up with scientist electronics and urologist. I discussed the diagnosis and plan of care with the patient at the bedside. Moderate level of MDM based on addressing above issues. This documentation was transcribed using voice recognition software. Several attempts were made to ensure accuracy. However inadvertent computerized business process engineer errors may be present. Nahid Serrato. Hospitalist. Orders: Basic Metabolic Panel Basic Metabolic Panel Referral to [facility] Extracted from: Title:APSO Note Author:Nahid SERRATO MD Date:09/03/22 73-year-old female with history of ureteral stricture with previous dilations, anxiety disorder presented with complaints of urinary hesitancy, constipation, cough and shortness of breath and was admitted to [facility] with acute paroxysmal atrial fibrillation with [...] BID, # 60 tab(s), Refills(s) 0, Pharmacy: [facility][id number], 165, cm, 07/02/23 21:30:00 EST, Height/Length Dosing, 55.7, kg, 07/02/23 21:30:00 EST, Weight Dosing Echo Transthoracic [facility] Hospital Care/Day Moderate 35 Minutes 43948 2. Acute systolic congestive heart failure (I50.21: Acute systolic (congestive) heart failure) Acute systolic congestive heart failure present on admission. Cardiology is following. Ejection fraction of 30 to 35%. Cardiology is planning on cardiac catheterization for ischemic work-up in AM. Meanwhile continue on aspirin, Coreg, losartan. We will verify with scientist electronics about Lasix. Or[facility]: [facility]/Day Moderate 35 Minutes 78205 3. Elevated troponin (R79.89: Other specified abnormal findings of blood chemistry) Secondary to type II non-ST segment elevation myocardial infarction from above. Echocardiogram shows ejection fraction of 30 to 35%. Morale Officer following with plans for cardiac catheterization in AM. Meanwhile continue on aspirin and Coreg. Ordered: Echo Transthoracic Complete [facility] Hospital Care/Day Moderate 35 Minutes 93599 4. Pleural effusion (J90: Pleural effusion, not elsewhere classified) Small pleural effusion secondary to acute systolic congestive heart failure. Supportive care. Lasix as needed. Ordered: [facility] Hospital Care/Day Moderate 35 Minutes 28161 5. Urinary hesitancy (R39.11: Hesitancy of micturition) Secondary to urethral stricture and urinary retention. She is status post Robles catheter placement. Urology consult reviewed by me. I appreciate and agreed recommendations. Patient will discharge with Robles catheter and leg bag to follow-up with urologist as outpatient. Ordered: [facility] Hospital Care/Day Moderate 35 Minutes 15868 6. Other urethral stricture, female (N35.82: Other [...] Daily, NOW, Start date 07/03/23 11:16:[address] [facility] Hospital Care/Day Moderate 35 Minutes 07754 9. On deep vein thrombosis (DVT) prophylaxis (Z79.899: Other rat exterminator (current) drug therapy) Lovenox. Disposition: Pending cardiac catheterization in AM. I discussed the diagnosis and plan of care with the patient at the bedside. I also spoke with the patient's daughter Mandeep over the phone. Moderate level of MDM based on addressing above issues. This documentation was transcribed using voice recognition software. Several attempts were made to ensure accuracy. However inadvertent computerized business process engineer errors may be present. Nahid Serrato. Hospitalist. Orders: enoxaparin, 60 mg = 0.6 mL, Injection, SubCutaneous, q12hr for 30 day(s), Stop date 08/02/23 22:59:00 EST, Routine, Start date 07/03/23 23:00:00 EST Cardiac Diet Extracted from: Title:Progress/SOAP Note Author:MARTINEZ MCMAHON, Remberto Patino Date:07/04/23 1. Atrial fibrillation with RVR, (I48.91: [...] deep vein thrombosis (DVT) prophylaxis (Z79.899: Other rat exterminator (current) drug therapy) Urinary retention (R33.9: Retention of urine, unspecified) Extracted from: Title:Consult Note Author:Shell MCMAHON, Jimmie Yeh Date:07/03/23 New onset A-fib RVR and card [...] deep vein thrombosis (DVT) prophylaxis (Z79.899: Other rat exterminator (current) drug therapy) Urinary retention (R33.9: Retention of urine, unspecified) Extracted from: Title:Urology Consult and H&P 2 Author:Cody LEO MD Date:07/03/23 Impression and Plan Diagnosis Atrial fibrillation with RVR (RIK61-GN I48.91, Discharge, Medical). Constipation (BTL65-RC K59.00, Discharge, Medical). Other urethral stricture, female (EDV01-HJ N35.82, Discharge, Medical). Urinary retention (LAM68-VK R33.9, Working, Medical). Course: Worsening, Overall this [...] I ordered echocardiogram. Ordered: Echo Transthoracic Complete [facility] Hospital Care/Day Moderate 35 Minutes 13481 2. Elevated troponin (R79.89: Other specified abnormal findings of blood chemistry) Secondary to type II non-ST segment elevation myocardial infarction from above. Echocardiogram ordered. Cardiology consult pending. Continue on aspirin. Ordered: Echo Transthoracic Complete [facility]/Day Moderate 35 Minutes 08270 3. Urinary hesitancy (R39.11: Hesitancy of micturition) Secondary to urethral stricture. Patient is status post Robles catheter placement for urinary retention. She will follow-up with urologist as outpatient. Ordered: [facility] Hospital Care/Day Moderate 35 Minutes 52260 4. Constipation (K59.00: Constipation, unspecified) Started patient on MiraLAX and lactulose. Ordered: lactulose, 20 gram = 30 mL, Syrup, Oral, Once, Stop date 07/03/23 12:00:00 EST, Routine, Start date 07/03/23 12:00:00 EST, 07/03/23 12:00:00 EST polyethylene glycol 3350, 17 gram = 1 EA, Powder-Recon, Oral, Daily, Routine, Start date 07/03/23 12:00:00 EST, 07/03/23 12:00:[address] [facility] Hospital Care/Day Moderate 35 Minutes 22412 5. Other urethral stricture, female (N35.82: Other urethral stricture, female) Resulting in urinary retention. Patient is status post Robles catheter during this admission. Gets dilation of the ureter every 6 months. Urology consult pending. 6. On deep vein thrombosis (DVT) prophylaxis (Z79.899: Other [place] [facility] ([facility] drug therapy) Lovenox. Disposition: Pending echocardiogram, cardiology and urology consult. I discussed the diagnosis and plan of care with the patient at the bedside. Moderate level of MDM based on addressing above issues. This documentation was transcribed using voice recognition software. Several attempts were made to ensure accuracy. However inadvertent computerized business process engineer errors may be present. Nahid Serrato. Hospitalist. [...] deep vein thrombosis (DVT) prophylaxis (Z79.899: Other rat exterminator (current) drug therapy) SCD, enoxaparin Orders: acetaminophen, [...] Date:11/22/2023 01:00:00 PM Scheduled Provider:Micheline BROOKS MD Location:[facility] Appointment Type:URO Office Visit Future Scheduled Tests Laboratory* Basic Metabolic Panel 07/12/23 * Digoxin Level 07/12/23 [facility]11-22-2023 NoteCRM entered the room to discuss dc planning. PCP, DME and insurance discussed. Patient is alert andinvolved in plan of care. Contact information provided and whiteboard updated. Pt is resting after heart cath. Eliquis priced to $183, copay 30 day card applied. Pt is agreeable to pablo and says shewill discuss w Dr Henriquez if she needs it changed, Ant dc later today. Family will transport. Plan now to stay, per Dr Glass [facility]:Result Comment: Electronically Signed By: Margaret Grimm\Date and Time Signed: 07/05/23 15:06 [id number] Evaluation + Plan noteExtracted from: Title:Procedure Note [...] Date:11/22/2023 01:00:00 PM Scheduled Provider:Micheline BROOKS MD Location:[facility] Appointment Type:URO Office Visit Future Scheduled Tests Laboratory* Basic Metabolic Panel 07/12/23 * Digoxin Level 07/12/23 [facility]11-22-2023 Hospital Discharge instructions Patient Education 07/05/2023 09:04:47 CV - Cardiovascular Discharge Instructions (Custom) [place], [place] CARDIOVASCULAR DISCHARGE INSTRUCTIONS Diet: Resume pre-procedure [...] hours post procedure: Actoplus MetGlucophageGlucophage XR GlucovanceAvandametFortamet Grn-hgphdapniWudresJcyv-fpxlfswgt GlumetzaJanumetMetaglip RiometGlycomet *Minimal pain, soreness and/or discomfort [...] you are interested in smoking cessation, contact [facility] at [phone], ext. [phone]. In the event you are unable to reach your physician, please call Stephan at [phone] and the automatic profile shaper operator will assist you. Seek Immediate Medical Care for: Bleeding: Apply continuous pressure to the site and Call 911. Should the arm or leg become cold, numb, blue or white call your physician immediately. Signs of infection are redness, warmth, swelling, increased tenderness, colored drainage, fever or chills Chest pain Follow Up Care 07/02/2023 21:18:33 With:Johan HENRIQUEZ Address: [address] [place] [phone] Business (1) When:2 weeks Comments:Call for followup appointment With:Peggy Nazario Address: [address] [place] [address] Business (1) When:07/10/2023 13:00:00 With:Micheline BROOKS Address: [facility] [address] [place] [address]- [facility] (1) When: Unknown Comments:Call for followup appointment re: the indwelling Robles catheter. [facility]11-21-2023 NoteCRM entered the room to discuss dc planning. PCP, DME and insurance discussed. Patient is alert andinvolved in plan of care. Contact information provided and whiteboard updated. Pt was seen by [facility], pt will be dc'd on Eliquis. CRM will pablo check and apply coupon if needed. Lucila Humphreys. ANt dc today. Pt will transport self home.[facility] HospitalComment on above:Result Comment: Electronically Signed By: Margaret Grimm.br\Date and Time Signed: 07/04/23 10:49 [id number] NoteChief Complaint I cannot urinate Reason for Consultation Atrial fibrillation History of Present Illness 73-year-old female with new onset atrial fibrillation RVR discovered in the setting of hospitalization for urinary retention. Robles catheter was placed by urology. Patient had been started on diltiazem drip. She reports to me that she feels shortness of breath and was having a panic attack feeling short of breath couple of days ago when she thought perhaps she noticed her heart out of rhythm. Shedenies any chest pain per se. She denies any orthopnea or nocturnal dyspnea. Patient is very fixated on her problem with urinary retention. She does not however have a cardiac history. Review of Systems Constitutional: no fever, no sweats, no weakness Skin: no rash, no lesions, nobruising/petechiae ENMT: no sore throat, no congestion, no hoarseness Respiratory: Yes shortness of breath, no cough, no orthopnea, no wheezing Cardiovascular: no chest pain, yes palpitations, no edema Gastrointestinal: no nausea, no vomiting, no diarrhea, no GI bleeding Genitourinary: no anuria/oliguria no hematuria urinary retention Musculoskeletal: no back pain, no trauma Neurologic: no headache, no dizziness, no numbness, no weakness Psychiatric: no sleeping problems, no irritability, no anxiety/depression. Heme/Lymph: no bleeding tendency, no bruising tendency Allergy/Immunologic: no recurrent infections, no impaired immunity Additional ROS info: Except as noted in the above Review of Systems and in the History of Present Illness all other systems have been reviewed and are negative or noncontributory. Physical Exam Vitals & Measurements T: 36.7 ?C(Axillary) TMIN: 36.3 ?C(Axillary) TMAX: 36.8 ?C(Oral) HR: 94(Monitored) RR: 18 BP: 113/68 SpO2: 92% HT: 165.10 cm WT: 57.4 kg General: alert, no acute distress Skin: warm, dry intact Head: atraumatic, normocephalic Neck: Trachea midline, no JVD, no bruit Eye: normal conjunctiva, sclera clear ENMT: oral mucosa moist Cardiovascular: Irregularly irregular rate and rhythm, nomurmur normal peripheral perfusion Respiratory: Lungs CTA, respirations non labored Chest wall: no deformity. Gastrointestinal: soft, non distended, no tenderness, no guarding. Back: No tenderness, Normal ROM, Normal alignment. Extremities: no edema, no deformity, no trauma Neurological: oriented x 4, LOC appropriate for agesensation equal & normal bilaterally, speechnormal Psychiatric: cooperative, affect appropriate for age, normal judgement, normal psychiatric thoughts. Images EKG: Atrial fibrillation with diffuse nonspecific ST-T wave changes Echo: New cardiomyopathy EF 30 to 35%, biatrial enlargement, pleural effusion Assessment/Plan New onset A-fib RVR and cardiomyopathy with systolic heart failure. Suspect may have [...] deep vein thrombosis (DVT) prophylaxis (Z79.899: Other rat exterminator (current) drug therapy) Urinary retention (R33.9: Retention of urine, unspecified) Problem List/Past Medical History Ongoing acid reflux Acute gastroenteritis anxiety Atrophic vaginitis Cystocele with prolapse Dysuria Feeling of incomplete bladder emptying Former smoker History of urethral stricture Injury of nose Nocturia Other urethral stricture, female Poor urinary stream Renal lesion Stranguria Superficial laceration of face Suprapubic pain Urinary frequency Urinary hesitancy Urinary urgency Weak urine stream Historical No qualifying data Procedure/Surgical History Cystourethroscopy with dilation of urethral stricture (10/25/2022), Cystoscopy (02/23/2021), Dilation of urethra (02/01/2019), Cystourethroscopy with dilation of urethral stricture (10/10/2017), colon resection, Corneal implant, Cystoscopy, Dilation of urethra, Hysterectomy, Tonsillectomy. Medications Inpatient acetaminophen 325 mg Tab, 650 mg= 2 tab(s), Oral, q6hr, PRN aspirin 81 mg Oral EC Tab, 81 mg= 1 tab(s), Oral, Daily Ativa (more content not included)...[facility] HospitalComment on above: Result Comment: Electronically Signed By: Shell MCMAHON, Eb Yeh\.br\Date and Time Signed: 07/03/23 21:35 [id number] NoteEchocardiology Procedure Exam Date/Time Accession # Ordering Echo Transthoracic 07/03/2023 13:36 EST [id number] Nahid SERRATO MD Complete CPT code 00299 [id number] Reason for Exam (Echo Transthoracic Complete) Congestive Heart Failure Report Version: 1 Study ID: [id number] [facility] [address] [place] [address] Adult Echocardiogram Report Name: ASYA ASENCIO I Study Date: 07/03/2023, 1: 00 PM Patient Location: [address] [place] [address] : 1950 (MM/DD/YYYY) Gender: Female Age: 73 Years Height: 165 cm BP: 96 / 63 mmHg Weight: 57 kg HR: 90 bpm BSA: 1.62 m? Ordering Physician: Nahid SERRATO Performed By: Fawn Sanders RDCS Reason For Study: Congestive Heart Failure History: Smoker-Quit, Atrial Fibrillation Interpretation Summary Ejection Fraction = 30-35%. Mildly dilated LV with moderate LV systolic dysfunction. Normal RV. Mod-sev MR and sev TR. Mild PA hypertension. Afib. No comparison. Procedure A complete two-dimensional transthoracic echocardiogram was performed (2D, M- mode, spectral and color flow Doppler). Study quality is good. Left Ventricle There is normal left ventricular wall thickness. The left ventricle is mildly dilated. Ejection Fraction = 30-35%. The left ventricular wall motion is normal. Cannot assess diastology due to afib. Left Atrium Echocardiology Report The left atrium is moderate to severely dilated. Right Atrium The right atrium is moderate to severely dilated. Right Ventricle The right ventricular systolic function is normal. The right ventricle is normal size. The right ventricular wall motion is normal. Aortic Valve The aortic valve is trileaflet. No aortic regurgitation. There is no aortic stenosis. Mitral Valve The mitral valve is normal in structure and function. There is moderate to severe mitral regurgitation. No mitral valve stenosis. Tricuspid Valve Structurally normal tricuspid valve. There is severe tricuspid regurgitation. Mean PA pressure estimate is mildly increased. Pulmonic Valve No evidence of stenosis. Trace pulmonic valvular regurgitation. Arteries The aortic root is normal in size. Normal ascending aorta. Pulmonary artery diameter is normal. Venous The inferior vena cava is normal in size, and collapses normally with respiration. Effusion There is no pericardial effusion. There is a left pleural effusion present. Left Ventricle IVSd: 0.69 cm LVIDd: 5.3 cm LVPWd: 0.95 cm LVIDs: 4.7 cm EDV(MOD-sp4): 102.0 ml LVLd ap4: 8.0 cm ESV(MOD-sp4): 65.4 ml LVLs ap4: 7.0 cm EDV(MOD-sp2): 101.0 ml LVLd ap2: 7.5 cm ESV(MOD-sp2): 61.2 ml LVLs ap2: 6.7 cm Right Ventricle TAPSE: 1.56 cm Aortic Valve LV V1 max: 70.0 cm/sec LV V1 max P.96 mmHg Ao max P.0 mmHg Ao V2 max: 111.8 cm/sec Mitral Valve MR max serafin: 489.7 cm/sec MR max P.9 mmHg MR max serafin: 489.7 cm/sec Tricuspid Valve TR max P.7 mmHg TR max serafin: 338.0 cm/sec Aorta Ao root diam: 2.7 cm Atria LA dimension: 3.9 cm Echocardiology Report Diastolic funtion MV dec time: 0.11 sec MV E max serafin: 146.5 cm/sec Ao max P.0 mmHg Ao root area: 5.6 cm? Ao root diam: 2.7 cm Ao V2 max: 111.8 cm/sec AV VR: 0.63 EDV(MOD-sp4): 102.0 ml EDV(Teich): 136.5 ml EF(MOD-sp4): 35.9 % EF(Teich): 23.9 % ESV(MOD-sp4): 65.4 ml ESV(Teich): 103.9 ml FS: 11.1 % IVC Diam: 2.04 cm IVSd: 0.69 cm LA dimension: 3.9 cm LV V1 max: 70.0 cm/sec LV V1 max P.96 mmHg LVIDd: 5.3 cm LVIDs: 4.7 cm LVLd ap4: 8.0 cm LVLs ap4: 7.0 cm LVPWd: 0.95 cm MR max P.9 mmHg MR max serafin: 489.7 cm/sec MV dec time: 0.11 sec MV E max serafin: 146.5 cm/sec RA A4Cs_phl: 21.4 cm? RAP systole: 8.0 mmHg RVDd: 3.1 cm RVIDd/LVIDd: 0.58 RVSP(TR): 53.7 mmHg SV(MOD-sp4): 36.6 ml TAPSE: 1.56 cm TR max P.7 mmHg TR max serafin: 338.0 cm/sec EDV(MOD-sp2): 101.0 ml EF (MOD-bp): 37.6 % EF(MOD-sp2): 39.4 % ESV(MOD-sp2): 61.2 ml LA Vol Index: 42.5 ml/m? LVLd ap2: 7.5 cm LVLs ap2: 6.7 cm Echocardiology Report Electronically signed by: Eb Goff MD 07/03/2023, 8: 11 PM FINAL REPORT Dictated: 07/03/2023 1:00 pm Eb Goff MD. Signed (Electronic Signature): 07/03/2023 8:11 pm Signed by: bE Goff MD Transcribed by: Nicole Technologist: [facility]11-20-2023 Note Chief Complaint Pt presents to ED with complaints of urinary retention worsening since urethra stretching in apr. History of Present Illness Patient is a 73-year-old female with past medical history as noted below comes in with above-statedchief complaint. Patient initially came to the ED because of acute urinary retention. During her emergency department work-up patient was noted to be in A-fib with RVR therefore will be admitted for evaluation. When I see patient she states that she has been feeling constipated over the past day or2. Patient has been drinking lots of fluid and has been unable to urinate therefore came to the ED for evaluation. Patient did states she had a panic attack because of the inability to urinate and constipation. She did feel her heart skipping some beats. She did have some associated shortness of breath. Patient states that the symptoms occur when she gets very anxious and therefore did not think much of them. By the time I see patient she has been started on a Cardizem drip. Patient states thatshe does not have any current symptoms of palpitations or dyspnea. Patient states that she had urethral dilation performed as an outpatient about 6 to 8 weeks ago. Patient states that she has had diff iculty urinating since then. She denies any dysuria and describes hesitancy. Patient denies any recent fevers, chills, nausea, vomiting, diarrhea, headache, vision changes. Review of Systems 14 Systems reviewed and negative except as noted in HPI. Scoring Christianson Fall Risk Score: 15 (07/02/23) Physical Exam Vitals & Measurements T: 36.6 ?C(Oral) TMIN: 36.6 ?C(Oral) TMAX: 36.9 ?C(Oral) HR: 90(Apical) RR: 12 BP: 108/62 SpO2: 97%HT: 165.10 cm WT: 57.4 kg General: alert, no acute distress Skin: warm, dry Head: no trauma, normocephalic Neck: Trachea midline, no adenopathy, no tenderness Eye: normal conjunctiva, sclera clear ENMT: oral mucosa moist, no pharyngeal erythema or exudate. hearing grossly intact Cardiovascular: Irregular, irregular, no murmur/gallop/rub Respiratory: Lungs CTA, respirations non labored , no w/r/r Gastrointestinal: Positive bowel sound, soft, non distended, no tenderness, no guarding. Genitourinary: Robles catheter in place with clear yellow urine Extremities: no deformity, no trauma Osteopathic: Deferred due to being noncontributory to current case. Neurological: oriented x 4, LOC appropriate for age, CN II-XII intact, motor strength equal & normal bilaterally, sensation equal & normal bilaterally, speech normal Psychiatric: cooperative, affect appropriate for age, normal judgement, normal psychiatric thoughts. Lab Results WBC: 6.2 E9/L (07/02/23 22:10:00) RBC: 4.3 E12/L (07/02/23 22:10:00) HGB: 12.7 gm/dL (07/02/23 22:10:00) Hct: 38.5 % (07/02/23 22:10:00) MCV: 90.3 fL (07/02/23 22:10:00) MCH: 29.7 pg (07/02/23 22:10:00) MCHC: 32.9 gm/dL (07/02/23 22:10:00) RDW: 13.5 % (07/02/23 22:10:00) Platelet: 183 E9/L (07/02/23 22:10:00) MPV: 9.1 fL (07/02/23 22:10:00) Neutro Auto: 76.7 % High (07/02/23 22:10:00) Lymph Auto: 15.3 % (07/02/23 22:10:00) Treutlen Auto: 7.7 % (07/02/23 22:10:00) Eos Auto: 0 % (07/02/23 22:10:00) Basophil Auto: 0.3 % (07/02/23 22:10:00) Neutro Absolute: 4.7 E9/L (07/02/23 22:10:00) Lymph Absolute: 0.9 E9/L Low (07/02/23 22:10:00) Treutlen Absolute: 0.5 E9/L (07/02/23 22:10:00) Eos Absolute: 0 E9/L (07/02/23 22:10:00) Basophil Absolute: 0 E9/L (07/02/23 22:10:00) PT: 13.2 second(s) High (07/02/23 22:10:00) INR: 1.2 (07/02/23:10:00) PTT: 30.2 second(s) (07/02/23:10:00) Glucose Lvl: 129 mg/dL (07/02/23 22:10:00) BUN: 13 mg/dL (07/02/23:10:00) Creatinine: 1 mg/dL (07/02/23:10:00) eGFR: 59 mL/min/1.73 m2 (07/02/23:10:00) BUN/Creat Ratio: 13 (07/02/23:10:00) Sodium Lvl: 133 mmol/L Low (07/02/23:10:00) Potassium Lvl: 3.8 mmol/L (07/02/23 22:10:00) Chloride: 100 mmol/L Low (07/02/23:10:00) CO2: 24 mmol/L (07/02/23:10:00) AGAP: 13 mEq/L (07/02/23:10:00) Calcium Lvl: 9.1 mg/dL (07/02/23 22:10:00) Alk Phos: 58 Int._Unit/L (07/02/23 22:10:00) ALT: 66 Int._Unit/L High (07/02/23 22:10:00) AST: 81 Int._Unit/L High (07/02/23 22:10:00) Total Protein: 6.7 gm/dL (07/02/23 22:10:00) Albumin Lvl: 3.8 gm/dL (07/02/23 22:10:00) Globulin: 2.9 gm/dL (07/02/23 22:10:00) A/G Ratio: 1.3 (07/02/23 22:10:00) Bili Total: 0.5 mg/dL (07/02/23 22:10:00) Bili Direct: 0.1 mg/dL (07/02/23 22:10:00) Bili Indirect: 0.4 mg/dL (07/02/23 22:10:00) Magnesium: 2 mg/dL (07/02/23 22:10:00) Troponin: 27.7 pg/mL High (07/03/23 02:00:00) UA Spec Desc: Robles (07/02/23 22:18:00) UA Color: Yellow2 (07/02/23 22:18:00) UA Clarity: Clear2 (07/02/23 22:18:00) UA Spec Grav: 1.025 (07/02/23 22:18:00) UA pH: 5.5 (07/02/23 22:18:00) UA Protein: NEGATIVE1 (07/02/23 22:18:00) UA Glucose: NEGATIVE1 (07/02/23 22:18:00) UA Ketones: Trace2 (07/02/23 22:18:00) UA Bili: NEGATIVE1 (07/02/23 22:18:00) UA Blood: Trace2 Abnormal (07/02/23 22: (more content not included)...[facility] HospitalComment on above:Result Comment: Electronically Signed By: Noman PATTON DO\Date and Time Signed: 07/03/23 02:59 [id number] Hospital Discharge instructions Patient Education 07/01/2023 00:37:46 Abdominal Pain, Adult, Obwg-pf-Qhro Abdominal Pain, Adult Many things can cause belly (abdominal) pain. Most times, belly pain is not dangerous. Many cases of belly pain can be watched and treated at home. Sometimes, though, belly pain is serious. Your doctor will try to find the cause of your belly pain. Follow these instructions at home: Medicines Take orvn-ain-xdqmagk and prescription medicines only as told by [...] your belly pain for any changes. Take xdif-yqn-mpfokgu and prescription medicines only as told by [...] provider. Document Revised: 12/09/2019 Document Reviewed: 12/09/2019 [employer] Patient Education 2022 Labtiva. Follow Up Care 06/30/2023 18:51:38 With:Peggy Nazario Address: [address] [place] [phone] Business (1) When:07/04/2023 Comments:You can use the Bentyl, Zofran every 6 hours as needed for pain and nausea. Please follow-up with your primary care doctor next 2 to 3 days for further evaluation management. Please return to the ED for any new or worsening symptoms. [facility]11-17-2023 Evaluation + Plan noteExtracted from: Title:ED Note Author:Zelalem Caitlynrosalva Salter Date :06/30/23 Abdominal pain, acute (R10.9 : Unspecified abdominal pain) Orders: dicyclomine, 20 mg = 2 mL, Injection, IntraMuscular, Once, Stop date 06/30/23 20:58:00 EST, STAT, Start date 06/30/23 20:58:00 EST, 06/30/23 20:58:00 EST dicyclomine, 10 mg = 1 cap(s), Oral, QID, X 7 day(s), # 14 cap(s), Refills(s) 0, Pharmacy: [facility] #[id number], 165, cm, 06/30/23 19:37:00 EST, Height/Length Dosing, [...] q8hr, # 12 tab(s), Refills(s) 0, Pharmacy: [facility] #[id number], 165, cm, 06/30/23 19:37:00 EST, Height/Length Dosing, 55.7, kg, 06/30/23 19:37:00 EST, Weight Dosing Automated Diff Basic Metabolic Panel CBC w/ Auto Diff CT Abdomen/Pelvis w/o Contrast eGFR Extra Blue Tube Hepatic Function Panel Lipase Level UA With Cult Reflex Future Appointments Appointment Date:11/22/2023 01:00:00 PM Scheduled Provider:Micheline BROOKS MD Location:[facility] Appointment Type:URO Office Visit [facility]09-13-2023 Hospital Discharge instructions Patient Education 04/26/2023 16:09:37 [...] symptoms are. Treatment may include: Using an kqqo-mht-cmptatu vaginal lubricant before sex. Using a long-acting [...] Follow these instructions at home: Medicines Take jksf-ffy-nzclllw and prescription medicines only as told by your health care provider. Do not use herbal or alternative medicines unless your health care provider says that you can. Use juna-sjv-amheunf creams, lubricants, or moisturizers for dryness only [...] provider. Document Revised: 01/28/2021 Document Reviewed: 01/28/2021 [employer] Patient Education 2022 Labtiva. Follow Up Care 10/25/2022 10:34:06 With:CECILIA MCMAHON, Micheline Morgan, URL Address: [facility] [address] , [place] [address]- When: Unknown [facility] 08-22-2023 Hospital Discharge instructions Patient Education 04/04/2023 [...] Follow these instructions at home: Medicines Take eugh-vmc-crbivgw and prescription medicines only as told by [...] Watch your condition for any changes. Take lfsv-mkx-hovfelg and prescription medicines only as told by [...] provider. Document Revised: 09/18/2020 Document Reviewed: 12/09/2019 [employer] Patient Education 2022 Labtiva. Follow Up Care 04/04/2023 13:51:29 With:Peggy Nazario Address: [address] [place] [phone] Business (1) When:04/07/2023 16:25:09 Comments:Call the office [...] you develop any new or worsening symptoms. [facility]06-18-2023 Hospital Discharge instructions Patient Education 01/28/2023 23:28:19 RICE Therapy for Routine Care of Injuries, Xeiz-gd-Clzq RICE Therapy for Routine Care of Injuries [...] provider. Document Revised: 05/20/2021 Document Reviewed: 05/20/2021 [employer] Patient Education 2022 Labtiva. 01/28/2023 23:28:19 Hand Contusion Hand Contusion A [...] An elastic wrap to support your hand. Yptv-rwf-atmkdcr medicines to control pain. Follow these instructions [...] sitting or lying down. General instructions Take xhws-spz-owsxvri and prescription medicines only as told by [...] provider. Document Revised: 11/18/2021 Document Reviewed: 11/18/2021 [employer] Patient Education 2022 Labtiva. Follow Up Care 01/28/2023 21:23:51 With:Peggy Nazario Address: [address] [place], [place] [phone] Business (1) When:01/31/2023 Comments:Follow-up with your primary care provider in 3 to 5 days. If symptoms worsen, do not improve, or new symptoms arise please report back to emergency department for further evaluation. [facility]06-17-2023 Evaluation + Plan noteExtracted from: Title:ED Note Author:Med Medeiros PA-C te:01/28/23 Contusion of left hand (S60. 222A: Contusion of left hand, initial encounter) Orders: XR Hand 3+ Views Left Future Appointments Appointment Date:04/26/2023 03:15:00 PM Scheduled Provider:Micheline BROOKS MD Location:[facility] Appointment Type:URO Office Visit [facility]03-14-2023 Hospital Discharge instructions Patient Education 10/25/2022 [...] [facility] [address] [place] [address]- Business (1) When:04/27/2023 10:27:19 [facility]07-21-2022 Hospital Discharge instructions Patient Education 03/03/2022 [...] reconstructed. Follow these instructions at home: Take wlyx-wut-esxaxdp and prescription medicines only as told by [...] 08/26/2016 Document Revised: 03/13/2019 Document Reviewed: 03/13/2019 [employer] Patient Education 2020 Labtiva. Follow Up Care 02/28/2022 09:40:23 With:CARMINA GARRISON PA-C, URL Address: [address] [place] [address] When: Unknown [facility] Hospital Discharge instructions Patient Education 02/15/2022 14:03:18 Contusion, Egmb-wr-Gkhg Contusion A contusion is a deep bruise. [...] sitting or lying down. General instructions Take vluc-kte-iszafzq and prescription medicines only as told by [...] is also called RICE. Youmay be given xmrb-pvk-ztrjilx medicines for pain. Contact a doctor if [...] 01/16/2009 Document Revised: 03/22/2019 Document Reviewed: 03/22/2019 [employer] Patient Education 2020 Labtiva. Follow Up Care 02/15/2022 13:08:58 With:Aravind MCMAHON, KANA Saini Address: [address] [place], [place] [id number]- When:02/18/2022 [facility]05-13-2022 Hospital Discharge instructions Patient Education 12/24/2021 18:30:08 Chemical Conjunctivitis, Adult, Jcvv-ls-Lgup Chemical Conjunctivitis, Adult Chemical conjunctivitis is irritation [...] cannot use soap and water use hand spd tech. Contact a doctor if: Your symptoms do [...] 07/31/2006 Document Revised: 11/20/2019 Document Reviewed: 10/06/2017 Getix Patient Education 2020 [employer]. Follow Up Care 12/24/2021 17:34:06 With:Krysta Church Address: [address] [place] [address], [address] [place] [phone] Business (1) When:12/27/2021 18:21:21 With:Peggy Nazario Address: [address] [place] [phone]- Business (1) When:Within 3 Day(s) [facility] Future App[facility]ments Appointment Date:03/02/2022 02:00:00 PM Scheduled Provider:Micheline BROOKS MD Location:[facility] Appointment Type:URO Office Visit Future Scheduled Tests Laboratory* COVID-19 ([facility]) [facility]12[facility]21 [facility] Future App[facility]ments Appointment Date:02/28/2022 09:30:00 AM Scheduled Provider:[facility]enn[facility] Iraheta MD [facility] Type:[facility] New Patient (FT) Appointment Date:03/02/2022 02:00:00 PM Scheduled Provider:Micheline BROOKS MD Location:[facility] Appointment Type:URO Office Visit Future Scheduled Tests Laboratory* COVID- ([facility]) 08[facility]12/21 [facility] Future Appointments Appointment Date:04/04/2022 10:00:00 AM Scheduled Provider:Yennifer Iraheta MD [facility] Type:Vascular New Patient (FT) Future Scheduled Tests Laboratory* COVID- ([facility]) 08/12/21 [facility] Evaluation + Plan note Future Appointments Appointment Date:07/25/2022 09:15:00 AM Scheduled Provider:Yennifer Iraheta MD [facility] Appointment Type:Vascular Follow Up (FT) Appointment Date:09/26/2022 02:45:00 PM Scheduled Provider:Micheline BROOKS MD [facility] Type:URO Office Visit Future Scheduled Tests Laboratory* COVID- ([facility]) 08/12/21 Radiology* US LE Venous Duplex Insufficiency Bilat [facility]ments Appointment Date:07/25/2022 09:15:00 AM Scheduled Provider:Yennifer Iraheta MD [facility] Appointment Type:Vascular Follow Up (FT) Appointment Date:09/26/2022 02:45:00 PM Scheduled Provider:Micheline BROOKS MD [facility] Type:URO Office Visit Future Scheduled Tests Laboratory* COVID- ([facility]) 08[facility]12[facility]21 [facility] Appointments Appointment Date:09/26/2022 02:45:00 PM Scheduled Provider:Micheline BROOKS MD [facility] Type:[facility]O [facility] Future Appointments Appointment Date:12/05/2022 03:00:00 PM Scheduled Provider: [facility] Appoint[facility] Type:MA Screen (FT) Appointment Date:04/26/2023 03:15:00 PM Scheduled Provider:Micheline BROOKS MD Location:[facility] Appointment Type:URO Office Visit Future Scheduled Tests Radiology* MA Mamm Screen w/CAD if perf and 3D Zac 12/05/22 [facility] Future Appointments Appointment Date:04/26/2023 03:15:00 PM Scheduled Provider:Micheline BROOKS MD Location:[facility] Appointment Type:URO [facility] Future Appointments Appointment Date:07/19/2023 03:00:00 PM Scheduled Provider:[facility]icheline [facility]OOKS [facility] Appoint[facility] Type:URO Office Visit Appointment Date:07/20/2023 10:30:00 AM Scheduled Provider:Johan HENRIQUEZ MD [facility] Appointment Type:Cardiology Inpatient Follow Up (FT) Appointment Date:11/22/2023 01:00:00 PM Scheduled Provider:Micheline BROOKS MD [facility] Appointment Type:URO Office Visit Future Scheduled Tests Laboratory* Basic Metabolic Panel 07/12/23 * Digoxin Level 07/12/23 [facility] Future Appointments Appointment Date:01/24/2024 02:30:00 PM Scheduled Provider:[facility]KS [facility] Type:[facility]O Office Visit Future Scheduled Tests Laboratory* Basic Metabolic Panel 07/12/23 * Digoxin Level 07/12/23 [facility] Future Appointments Appointment Date:01/24/2024 02:30:00 PM Scheduled Provider:Micheline BROOKS MD [facility] Appointment Type:URO Office Visit Diagnostic Tests Pending * Urine Culture 11/22/23 Future Scheduled Tests Laboratory* Basic Metabolic Panel 07/12/23 * Digoxin Level 07/12/23 [facility] Diagnosis Anxiety Anxiety state, unspecified [facility] Diagnosis Gastroesophageal reflux disease without esophagitis Esophageal reflux [facility]* Diagnosis Non-rheumatic mitral regurgitation- Primary Mitral valve disorders Chronic HFrEF (heart failure with reduced ejection fraction) (HCC) Nonrheumatic tricuspid valve regurgitation Tricuspid valve disorders, specified as nonrheumatic Non-ischemic cardiomyopathy (HCC) Other primary cardiomyopathies Persistent atrial fibrillation (HCC) Atrial fibrillation assisted 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 Long-term (current) use of 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s History of cardioversion Personal history of surgery to heart and great vessels, presenting hazards to health Primary hypertension Unspecified essential hypertension [facility] Diagnosis Mitral valve insufficiency, unspecified etiology- Primary Anxiety Anxiety state, unspecified Paroxysmal atrial fibrillation (CMS/HCC) Atrial fibrillation Other cardiomyopathy (CMS/HCC) Hospital discharge follow-up Other follow-up examination Other thrombophilia (D68.69) Atherosclerosis of aorta (I70.0) Atherosclerosis of aorta [facility] Diagnosis Feeling of incomplete bladder emptying- Primary Incomplete bladder emptying Stricture of female urethra, unspecified stricture type Severe protein-calorie malnutrition (HCC) Other severe protein-calorie malnutrition [facility]* Diagnosis Screening for genitourinary condition Screening for other and unspecified genitourinary condition [facility]* Diagnosis Feeling of incomplete bladder emptying- Primary Incomplete bladder emptying Stricture of female urethra, unspecified stricture type Severe protein-calorie malnutrition (HCC) Other severe protein-calorie malnutrition [facility]* Diagnosis Mitral valve regurgitation due to cardiomyopathy (HCC)- Primary [facility]* Diagnosis Non-rheumatic mitral regurgitation Mitral valve disorders Persistent atrial fibrillation (HCC) Atrial fibrillation Non-ischemic cardiomyopathy (HCC) Other primary cardiomyopathies Chronic HFrEF (heart failure with reduced ejection fraction) (HCC) [facility] Diagnosis Stricture of female urethra, unspecified stricture type- Primary Feeling of incomplete bladder emptying Incomplete bladder emptying [facility]* Diagnosis Screening for genitourinary condition Screening for other and unspecified genitourinary condition documented [facility]* Diagnosis Feeling of incomplete bladder emptying- Primary Incomplete bladder emptying Stricture of female urethra, unspecified stricture type [facility]* Diagnosis Dysuria [facility]* Diagnosis Anxiety Anxiety state, unspecified [facility]* Diagnosis Postmenopausal atrophic vaginitis Breast cancer screening by mammogram [facility]* Diagnosis Dysuria- Primary Urinary frequency Atrial fibrillation, persistent (HCC) (CMS/HCC) assisted 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 BMI 22.0-22.9, adult [facility]* Diagnosis Anxiety Anxiety state, unspecified [facility]* Diagnosis Primary hypertension (CMS/HCC)- Primary Unspecified essential hypertension Atrial fibrillation, persistent (HCC) (CMS/HCC) Atherosclerosis of aorta (CMS/HCC) Atherosclerosis of aorta Panic attack (CMS/HCC) Panic disorder without agoraphobia [facility]* Diagnosis Anxiety- Primary Anxiety state, unspecified Chronic fatigue syndrome Primary hypertension (CMS/HCC)- Primary Unspecified essential hypertension Atrial fibrillation, persistent (HCC) (CMS/HCC) Atherosclerosis of aorta (CMS/HCC) Atherosclerosis of aorta Panic attack (CMS/HCC) Panic disorder without agoraphobia [facility]* Diagnosis Primary hypertension (CMS/HCC)- Primary Unspecified essential hypertension Atrial fibrillation, persistent (HCC) (CMS/HCC) Atherosclerosis of aorta (CMS/HCC) Atherosclerosis of aorta Panic attack (CMS/HCC) Panic disorder without agoraphobia Acute cough- Primary Hematuria, unspecified type 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 Atrial fibrillation, persistent (HCC) (CMS/HCC) Primary hypertension (CMS/HCC) Unspecified essential hypertension [facility]* Diagnosis Primary hypertension (CMS/HCC)- Primary Unspecified essential hypertension Atrial fibrillation, persistent (HCC) (CMS/HCC) Atherosclerosis of aorta (CMS/HCC) Atherosclerosis of aorta Panic attack (CMS/HCC) Panic disorder without agoraphobia Anxiety Anxiety state, unspecified [facility]* Diagnosis Primary hypertension (CMS/HCC)- Primary Unspecified essential hypertension Atrial fibrillation, persistent (HCC) (CMS/HCC) Atherosclerosis of aorta (CMS/HCC) Atherosclerosis of aorta Panic attack (CMS/HCC) Panic disorder without agoraphobia Acute cough- Primary Bruising Contusion of unspecified site 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 Atrial fibrillation, persistent (HCC) (CMS/HCC) Primary hypertension (CMS/HCC) Unspecified essential hypertension Cardiomyopathy, unspecified [facility]* Diagnosis Primary hypertension (CMS/HCC)- Primary Unspecified essential hypertension Atrial fibrillation, persistent (HCC) (CMS/HCC) Atherosclerosis of aorta (CMS/HCC) Atherosclerosis of aorta Panic attack (CMS/HCC) Panic disorder without agoraphobia Anxiety Anxiety state, unspecified documented [facility] encounter [facility]* Diagnosis Primary hypertension (CMS/HCC)- Primary Unspecified essential hypertension Atrial fibrillation, persistent (HCC) (CMS/HCC) Atherosclerosis of aorta (CMS/HCC) Atherosclerosis of aorta Panic attack (CMS/HCC) Panic disorder without agoraphobia Hematuria, unspecified type- Primary Right flank pain Abdominal pain, unspecified site Dysuria Urinary frequency documented in this encounter [facility]* Diagnosis Primary hypertension (CMS/HCC)- Primary Unspecified essential hypertension Atrial fibrillation, persistent (HCC) (CMS/HCC) Atherosclerosis of aorta (CMS/HCC) Atherosclerosis of aorta Panic attack (CMS/HCC) Panic disorder without agoraphobia Atrial fibrillation, persistent (HCC) (CMS/HCC)- Primary assisted 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 Primary hypertension (CMS/HCC) Unspecified essential hypertension Anxiety Anxiety state, unspecified Panic attack (CMS/HCC) Panic disorder without agoraphobia documented in this encounter [facility]* Diagnosis Primary hypertension (CMS/HCC)- Primary Unspecified essential hypertension Atrial fibrillation, persistent (HCC) (CMS/HCC) Atherosclerosis of aorta (CMS/HCC) Atherosclerosis of aorta Panic attack (CMS/HCC) Panic disorder without agoraphobia Anxiety Anxiety state, unspecified documented in this encounter [facility] Narrative No data available for this section [facility] instructions No data available for this section [facility] No data available for this section [facility] for referral (narrative) , Mitral Valve and Tricuspid Valve Repair. Referred by: MARTINEZ MCMAHON, Johan Patino [facility] for referral (narrative)* Outpatient Procedure (Routine) - Authorized Specialty Diagnoses / Procedures Referred By Marietta aguiar Ref[facility] To [facility] Diagnoses Non-rheumatic mitral regurgitation Persistent atrial fibrillation (HCC) Non-ischemic cardiomyopathy (HCC) Chronic HFrEF (heart failure with reduced ejection fraction) (HCC) Procedures ECG COMPLETE ECG ROUTINE ECG W/LEAST 12 LDS W/I&R Ana Rivas APRN.CNP [address] [place] [address] [facility] [place] [address] [place] [address] Referral ID Status Reason Start Date Expiration Date Visits Requested Visits Authorized [id number] Authorized Auto-Generat ed Referral 11/08/2023 09/25/2024 1 1 * Transition of Care (Routine) - Ref Not Required Specialty Diagnoses / Procedures Referred By Contac t Referred To Contact Diagnoses Non-rheumatic mitral regurgitation Persistent atrial fibrillation (HCC) Non-ischemic cardiomyopathy (HCC) Chronic HFrEF (heart failure with reduced ejection fraction) (HCC) Procedures CARDIOVASCULAR MEDICINE OP FOLLOW UP APPT ORDER Ana Rivas APRN.CNP [address] [place] [address] Referral ID Status Reason Start Date Expiration Date Visits Requested Visits Authorized [id number] Ref Not Required PCP Requested Referral 09/26/2023 [...] W/LEAST 12 LDS W/I&R Ana Rivas APRN.CNP [address] [place] [address] [facility] [place] [address] [place] [address] Referral ID Status Reason Start Date Expiration Date Visits Requested Visits Authorized [id number] Authorized Auto-Generat ed Referral 10/25/2023 09/25/2024 1 1 * Transition of Care (Routine) - Ref Not Required Specialty Diagnoses / Procedures Referred By Contac t Referred To Contact Diagnoses Non-rheumatic mitral regurgitation Persistent atrial fibrillation (HCC) Non-ischemic cardiomyopathy (HCC) Chronic HFrEF (heart failure with reduced ejection fraction) (HCC) Procedures CARDIOVASCULAR MEDICINE OP FOLLOW UP APPT ORDER Ana Rivas APRN.CNP [address] [place] [address] Referral ID Status Reason Start Date Expiration Date Visits Requested Visits Authorized [id number] Ref Not Required PCP Requested Referral 09/26/2023 09/25/2024 1 1 * Outpatient Procedure (Routine) - Authorized Specialty Diagnoses / Procedures Referred By Contac t Referred To Contact [facility] Diagnoses Non-rheumatic mitral regurgitation Persistent atrial fibrillation (HCC) Non-ischemic cardiomyopathy (HCC) Chronic HFrEF (heart failure with reduced ejection fraction) (HCC) Procedures ECG COMPLETE ECG ROUTINE ECG W/LEAST 12 LDS W/I&R Ana Rivas APRN.JUNIOR BUSINESS ANALYST [address] [place] [address] [facility] [place] [address] [place] [address] Referral ID Status Reason Start Date Expiration Date Visits Requested Visits Authorized [id number] Authorized Auto-Generat ed Referral 10/10/2023 09/25/2024 1 1 * Transition of Care (Routine) - Ref Not Required Specialty Diagnoses / Procedures Referred By Contac t Referred To Contact Diagnoses Non-rheumatic mitral regurgitation Persistent atrial fibrillation (HCC) Non-ischemic cardiomyopathy (HCC) Chronic HFrEF (heart failure with reduced ejection fraction) (HCC) Procedures CARDIOVASCULAR MEDICINE OP FOLLOW UP APPT ORDER Ana Rivas APRN.CNP [address] [place] [address] Referral ID Status Reason Start Date Expiration Date Visits Requested Visits Authorized [id number] Ref Not Required PCP Requested Referral 09/26/2023 09/25/2024 1 1 [facility] for referral (narrative)* Consultation (Routine) - Pending Review Specialty Diagnoses / Procedures Referred By Contac t Referred To Contact Cardiothoracic Surgery Diagnoses Mitral valve insufficiency, unspecified etiology Procedures [place] OFFICE/OUTPATIENT [facility] 60 MINUTES [place] [address] [place] [address] Referral ID Status Reason Start Date Expiration Date Visits Requested Visits Authorized [id number] Pending Review Specialty Services Required 09/18/2023 03/16/2024 [...] section and content) DATE CREATED AUTHOR 08/23/2021 [facility] dical Specialist DATE CREATED AUTHOR AUTHOR'S ORGANIZ ATION 06/05/2024 [facility] DATE CREATED AUTHOR AUTHOR'S ORGANIZ ATION 06/11/2024 [facility] DATE CREATED AUTHOR AUTHOR'S ORGANIZ ATION 06/29/2024 [facility] DATE CREATED AUTHOR AUTHOR'S ORGANIZ ATION 11/22/2024 [facility] DATE CREATED AUTHOR AUTHOR'S ORGANIZ ATION 01/10/2025 [facility] dical Specialists EPIC DATE CREATED AUTHOR AUTHOR'S ORGANIZ ATION 01/17/2025 [facility] Care Team (unrecognized sect ion and content) Cellophane Bag Machine Operator Relationship Specialty Start Date End Date Peggy Nazario [address] [place] [address] PCP - General Family Medicine 07/24/23 Micheline Sorto MD [address] [place] [address] Surgeon Cardiac Surg 07/24/23 Johan Henriquez MD [facility] [address] [address] Morale Officer Cardiology 07/24/23 Cellophane Bag Machine Operator Relationship Specialty Start Date End Date Peggy Nazario MD [address] [place] [address] PCP - ACO Reach 01/05/23 Peggy Nazario MD [address] [place] [address] PCP - General Family Medicine 02/08/23 Cellophane Bag Machine Operator Relationship Specialty Start Date End Date Peggy Nazario MD [address] [place] [address] PCP - ACO Reach 01/05/23 Peggy Nazario MD [address] [place] [address] PCP - General Family Medicine 02/08/23 Cellophane Bag Machine Operator Relationship Specialty Start Date End Date Peggy Nazario [address] [place] [address] PCP - General Family Medicine 07/24/23 Micheline Sorto MD [address] [place] [address] Surgeon Cardiac Surg 07/24/23 Johan Henriquez MD [address] [facility] [place] [address] Morale Officer Cardiology 07/24/23 Alea Harley MD [address] [place] [address] Cardiology 07/28/23 Alea Harley MD [address] [place] [address] Primary Staff Physician Cardiology 08/23/23 Cellophane Bag Machine Operator Relationship Specialty Start Date End Date Peggy Nazario [address] [place] [address] PCP - General Family Medicine 07/24/23 Micheline Sorto MD [address] [place] [address] Surgeon Cardiac Surg 07/24/23 Johan Henriquez MD [address] [place] [address] Morale Officer Cardiology 07/24/23 Alea Harley MD [address] [place] [address] Cardiology 07/28/23 Alea Harley MD [address] [place] [address] Primary Staff Physician Cardiology 08/23/23 Cellophane Bag Machine Operator Relationship Specialty Start Date End Date Peggy Nazario [address] [place] [address] PCP - General Family Medicine 07/24/23 Micheline Sorto MD [address] [place] [address] Surgeon Cardiac Surg 07/24/23 Johan Henriquez MD [facility] [address] [place] [address] Morale Officer Cardiology 07/24/23 Alea Harley MD [address] [place] [address] Cardiology 07/28/23 Alea Harley MD [address] [place] [address] Primary Staff Physician Cardiology 08/23/23 Cellophane Bag Machine Operator Relationship Specialty Start Date End Date Peggy Nazario MD [address] [place] [address] PCP - ACO Reach 01/05/23 Peggy Nazario MD [address] [place] [address] PCP - General Family Medicine 02/08/23 Cellophane Bag Machine Operator Relationship Specialty Start Date End Date Peggy Nazario [address] [place] [address] PCP - General Family Medicine 07/24/23 Micheline Sorto MD [address] [place] [address] Surgeon Cardiac Surg 07/24/23 Johan Henriquez MD [facility] [address] [place] [address] Morale Officer Cardiology 07/24/23 Alea Harley MD [address] [place] [address] Cardiology 07/28/23 Alea Harley MD [address] [place] [address] Primary Staff Physician Cardiology 08/23/23 Cellophane Bag Machine Operator Relationship Specialty Start Date End Date Peggy Nazario MD [address] [place] [address] PCP - ACO Reach 01/05/23 Peggy Nazario MD [address] [place] [address] PCP - General Family Medicine 02/08/23 Cellophane Bag Machine Operator Relationship Specialty Start Date End Date Peggy Nazario [address] [place] [address] PCP - General Family Medicine 07/24/23 Micheline Sorto MD [address] [place] [address] Surgeon Cardiac Surg 07/24/23 Johan Henriquez MD [address] [place] [address] Morale Officer Cardiology 07/24/23 Alea Harley MD [address] [place] [address] Cardiology 07/28/23 Alea Harley MD [address] [place] [address] Primary Staff Physician Cardiology 08/23/23 Cellophane Bag Machine Operator Relationship Specialty Start Date End Date Peggy Nazario [address] [place] [address] [place] [address] PCP - General Family Medicine 07/24/23 Micheline Sorto MD [address] [place] [address] Surgeon Cardiac Surg 07/24/23 Johan Henriquez MD [address] [place] [address] Morale Officer Cardiology 07/24/23 Alea Harley MD [address] [place] [address] Cardiology 07/28/23 Alea Harley MD [address] [place] [address] Primary Staff Physician Cardiology 08/23/23 Cellophane Bag Machine Operator Relationship Specialty Start Date End Date Peggy Nazario [address] [place] [address] PCP - General Family Medicine 07/24/23 Micheline Sorto MD [address] [place] [address] Surgeon Cardiac Surg 07/24/23 Johan Henriquez MD [address] [place] [place] [address] Morale Officer Cardiology 07/24/23 Alea Harley MD [address] [place] [address] Cardiology 07/28/23 Alea Harley MD [address] [place] [address] Primary Staff Physician Cardiology 08/23/23 Cellophane Bag Machine Operator Relationship Specialty Start Date End Date Peggy Nazario [address] [place] [address] PCP - General Family Medicine 07/24/23 Micheline Sorto MD [address] [place] [address] Surgeon Cardiac Surg 07/24/23 Johan Henriquez MD [address] [place] [address] Morale Officer Cardiology 07/24/23 Alea Harley MD [address] [place] [address] Cardiology 07/28/23 Alea Harley MD [address] [place] [address] Primary Staff Physician Cardiology 08/23/23 Cellophane Bag Machine Operator Relationship Specialty Start Date End Date Peggy Nazario [address] [place] [address] PCP - General Family Medicine 07/24/23 Micheline Sorto MD [address] [place] [address] Surgeon Cardiac Surg 07/24/23 Johan Henriquez MD [address] [place] [address] Morale Officer Cardiology 07/24/23 Alea Harley MD [address] [place] [address] Cardiology 07/28/23 Alea Harley MD [address] [place] [address] Primary Staff Physician Cardiology 08/23/23 Cellophane Bag Machine Operator Relationship Specialty Start Date End Date Peggy Nazario [address] [place] [address] PCP - General Family Medicine 07/24/23 Micheline Sorto MD [address] [place] [address] Surgeon Cardiac Surg 07/24/23 Johan Henriquez MD [address] [facility] [place] [address] Morale Officer Cardiology 07/24/23 Alea Harley MD [address] [place] [address] Cardiology 07/28/23 Alea Harley MD [address] [place] [address] Primary Staff Physician Cardiology 08/23/23 Cellophane Bag Machine Operator Relationship Specialty Start Date End Date Peggy Nazario [address] [place] [address] PCP - General Family Medicine 07/24/23 Micheline Sorto MD [address] [place] [address] Surgeon Cardiac Surg 07/24/23 Johan Henriquez MD [facility] [address] [facility] [place] [address] Morale Officer Cardiology 07/24/23 Alea Harley MD [address] [place] [address] Cardiology 07/28/23 Alea Harley MD [address] [place] [address] Primary Staff Physician Cardiology 08/23/23 Cellophane Bag Machine Operator Relationship Specialty Start Date End Date Peggy Nazario [address] [place] [address] PCP - General Family Medicine 07/24/23 Micheline Sorto MD [address] [place] [address] Surgeon Cardiac Surg 07/24/23 Johan Henriquez MD [facility] [address] [address] Morale Officer Cardiology 07/24/23 Alea Harley MD [address] [place] [address] Cardiology 07/28/23 Alea Harley MD [address] [place] [address] Primary Staff Physician Cardiology 08/23/23 Cellophane Bag Machine Operator Relationship Specialty Start Date End Date Peggy Nazario MD [address] [place] [address] PCP - ACO Reach 01/05/23 Hannah Brian MD [address] [place] [address] PCP - General Family Medicine 11/03/23 Cellophane Bag Machine Operator Relationship Specialty Start Date End Date Peggy Nazario MD [address] [place] [address] PCP - ACO Reach 01/05/23 Hannah Brian MD [address] [place] [address] PCP - General Family Medicine 11/03/23 Cellophane Bag Machine Operator Relationship Specialty Start Date End Date Peggy Nazario MD [address] [place] [address] PCP - ACO Reach 01/05/23 Hannah Brian MD [address] [place] [address] PCP - General Family Medicine 11/03/23 Cellophane Bag Machine Operator Relationship Specialty Start Date End Date Peggy Nazario MD [address] [place] [address] PCP - ACO Reach 01/05/23 Hannah Brian MD [address] [place] [address] PCP - General Family Medicine 11/03/23 Cellophane Bag Machine Operator Relationship Specialty Start Date End Date Peggy Nazario MD [address] [place] [address] PCP - ACO Reach 01/05/23 Hannah Brian MD [address] [place] [address] PCP - General Family Medicine 11/03/23 Cellophane Bag Machine Operator Relationship Specialty Start Date End Date Peggy Nazario MD [address] [place] [address] PCP - ACO Reach 01/05/23 Hannah Brian MD [address] [place] [address] PCP - General Family Medicine 11/03/23 Cellophane Bag Machine Operator Relationship Specialty Start Date End Date Peggy Nazario MD [address] [place] [address] PCP - ACO Reach 01/05/23 Hannah Brian MD [address] [place] [address] PCP - General Family Medicine 11/03/23 Cellophane Bag Machine Operator Relationship Specialty Start Date End Date Peggy Nazario MD [address] [place] [address] PCP - ACO Reach 01/05/23 Peggy Nazario MD [address] [place] [address] PCP - General Family Medicine 02/08/23 11/02/23 Cellophane Bag Machine Operator Relationship Specialty Start Date End Date Peggy Nazario MD [address] [place] [address] PCP - ACO Reach 01/05/23 Hannah Brian MD [address] [place] [address] PCP - General Family Medicine 11/03/23 Cellophane Bag Machine Operator Relationship Specialty Start Date End Date Peggy Nazario MD [address] [place] [address] PCP - ACO Reach 01/05/23 Hannah Brian MD [address] [place] [address] PCP - General Family Medicine 11/03/23 Cellophane Bag Machine Operator Relationship Specialty Start Date End Date Peggy Nazario MD [address] [place] [address] PCP - ACO Reach 01/05/23 Hannah Brian MD [address] [place] [address] PCP - General Family Medicine 11/03/23 Cellophane Bag Machine Operator Relationship Specialty Start Date End Date Peggy Nazario MD [address] [place] [address] PCP - ACO Reach 01/05/23 Hannah Brian MD [address] [place] [address] PCP - General Family Medicine 11/03/23 Cellophane Bag Machine Operator Relationship Specialty Start Date End Date Peggy Nazario MD [address] [place] [address] PCP - ACO Reach 01/05/23 Hannah Brian MD [address] [place] [address] PCP - General Family Medicine 11/03/23 Cellophane Bag Machine Operator Relationship Specialty Start Date End Date Peggy Nazario MD [address] [place] [address] PCP - ACO Reach 01/05/23 Hannah Brian MD [address] [place] [address] PCP - General Family Medicine 11/03/23 Cellophane Bag Machine Operator Relationship Specialty Start Date End Date Peggy Nazario MD [address] [place] [address] PCP - ACO Reach 01/05/23 Hannah Brian MD [address] [place] [address] PCP - General Family Medicine 11/03/23 Source Comments (unrecognize d section and content) In the event this informatio n is protected by the Federal Confidentiality of Alcohol and Drug Abuse Patient Records regulations: The Federal rules restrict any use of the information to criminally investigate or prosecute any alcohol or drug abuse patient.[facility] Center[facility] the event this information is protected by the Federal Confidentiality of Alcohol and Drug Abuse Patient Records regulations: The Federal rules restrict any use of the information to criminally investigate or prosecute any alcohol or drug abuse patient.[facility] Center[facility] the event this information is protected by the Federal Confidentiality of Alcohol and Drug Abuse Patient Records regulations: The Federal rules restrict any use of the information to criminally investigate or prosecute any alcohol or drug abuse patient.[facility] Center[facility] the event this information is protected by the Federal Confidentiality of Alcohol and Drug Abuse Patient Records regulations: The Federal rules restrict any use of the information to criminally investigate or prosecute any alcohol or drug abuse patient.[facility] CenterIn the event this information is protected by the Federal Confidentiality of Alcohol and Drug Abuse Patient Records regulations: The Federal rules restrict any use of the information to criminally investigate or prosecute any alcohol or drug abuse patient.[facility] CenterIn the event this information is protected by the Federal Confidentiality of Alcohol and Drug Abuse Patient Records regulations: The Federal rules restrict any use of the information to criminally investigate or prosecute any alcohol or drug abuse patient.[facility] CenterIn the event this information is protected by the Federal Confidentiality of Alcohol and Drug Abuse Patient Records regulations: The Federal rules restrict any use of the information to criminally investigate or prosecute any alcohol or drug abuse patient.[facility] CenterIn the event this information is protected by the Federal Confidentiality of Alcohol and Drug Abuse Patient Records regulations: The Federal rules restrict any use of the information to criminally investigate or prosecute any alcohol or drug abuse patient.[facility] CenterIn the event this information is protected by the Federal Confidentiality of Alcohol and Drug Abuse Patient Records regulations: The Federal rules restrict any use of the information to criminally investigate or prosecute any alcohol or drug abuse patient.[facility] CenterIn the event this information is protected by the Federal Confidentiality of Alcohol and Drug Abuse Patient Records regulations: The Federal rules restrict any use of the information to criminally investigate or prosecute any alcohol or drug abuse patient.[facility] CenterIn the event this information is protected by the Federal Confidentiality of Alcohol and Drug Abuse Patient Records regulations: The Federal rules restrict any use of the information to criminally investigate or prosecute any alcohol or drug abuse patient.[facility] CenterIn the event this information is protected by the Federal Confidentiality of Alcohol and Drug Abuse Patient Records regulations: The Federal rules restrict any use of the information to criminally investigate or prosecute any alcohol or drug abuse patient.[facility] CenterIn the event this information is protected by the Federal Confidentiality of Alcohol and Drug Abuse Patient Records regulations: The Federal rules restrict any use of the information to criminally investigate or prosecute any alcohol or drug abuse patient.[facility] CenterIn the event this information is protected by the Federal Confidentiality of Alcohol and Drug Abuse Patient Records regulations: The Federal rules restrict any use of the information to criminally investigate or prosecute any alcohol or drug abuse patient.[facility] CenterIn the event this information is protected by the Federal Confidentiality of Alcohol and Drug Abuse Patient Records regulations: The Federal rules restrict any use of the information to criminally investigate or prosecute any alcohol or drug abuse patient.[facility] Reason for Visit (unrecogniz ed section and [...] cardiomyopathy (HCC) Decompensated heart failure (HCC) Procedures [facility] IP/OBS CARE HIGH MDM 75 MINUTES MEDICATION MANAGEMENT CONSULTS [facility] [id number] [place] [address] Referral ID Status Reason Start Date Expiration Date Visits Re quested Visits Authorized [id number] 1 Reason Comments Refill Request Reason Comments Follow Up Reason Comments Cystoscopy-1 Patient Education Reason Comments Gynecologic Exam Medicare off year. P: MIR SHEFFIELD 1985HRT: NoneLast pap 07-24-23 neg.Last mammogram 12-05-22 [facility]. Not sure when she can do it d/t cardiac issues.Denies breast, urinary, or bowel concerns. Reason Comments Urinary Frequency Reason Onset Date Comments Med Refill 09/20/2024 Reason Comments Follow-up Reason Comments Nausea Cough Conjunctivitis Reason Comments Right Flank Pain Urinary Frequency dysuria Reason Onset Date Comments Med Refill 01/13/2025 Inactive Administered Medications - up to 3 [...] BE BASED ON THE PRIMARY CLINICAL RECORDS. [email or web address] provides no warranty or guarantee of the accuracy or completeness of information in this document.
--- NOTE | 2025-01-19 02:55 | ECG_ITS ---
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 Measurements Intervals [place] Rate: 70 P: -11323 LA: -37474 QRS: -39 QRSD: 136 T: 8 QT: 460 QTc: 480 Interpretive Statements Atrial fibrillation 05115 Electronic ventricular pacemaker 9120 atypical ECG Compared to ECG 10/15/2023 17:46:26 Electronic ventricular pacemaker is now present Electronically Signed On 01-19-2025 20:00:54 EDT by NEREYDA CARLTON M.D.
--- NOTE | 2025-01-19 03:55 | ED.ARRPALP1 ---
HPI - Arrhythmia/Palpitations General Chief Complaint: Arrhythmia/Palpitations Stated Complaint: PALPITATIONS Time Seen by Provider: 01/19/25 03:50 Source: patient Mode of arrival: walk-in Limitations: no limitations History of Present Illness HPI narrative: patient describes placement of pacemaker for A. fib and mitral valve replacement about 5 days ago at [facility]. Has been doing well and was staying with her daughter until one day ago when she came home and is now alone. Tonight descibes lying down and feeling a sensation of her heart beating rapidly. No chest pain. States earlier had right jaw pain that resoved with tylenol. Feels bert now. No dyspnea or nausea Related Data Home Medications ?Medication ?Instructions ?Recorded ?Confirmed atorvastatin 40 mg tablet 40 mg PO .once daily 10/15/23 01/19/25 lorazepam 0.5 mg tablet 0.5 mg PO TID PRN anxiety 10/15/23 01/19/25 spironolactone 25 mg tablet 12.5 mg PO .once daily 10/15/23 01/19/25 apixaban 5 mg tablet (Eliquis) 5 mg PO BID 06/01/24 01/19/25 carvedilol 6.25 mg tablet 6.25 mg PO BID 01/19/25 01/19/25 Allergies Allergy/AdvReac Type Severity Reaction Status Date / Time meperidine (From Demerol) Allergy Intermediate Agitated Verified 01/19/25 02:57 Review of Systems ROS Status of ROS 10 or more systems reviewed and unremarkable except as noted in history and below PFSH PFSH Social History Smoking status: Former smoker Little interest or pleasure in doing things: not at all Feeling down, depressed, or hopeless: not at all Exam Constitutional Vital Signs, click to edit/add: Last Vital Signs Pulse 70 01/19/25 06:00 Resp 13 01/19/25 06:00 BP 140/68 01/19/25 06:00 Pulse Ox 98 01/19/25 05:50 O2 Del Method Room Air 01/19/25 02:47 Common normals: no apparent distress, average body habitus, oriented x3, no limitations, healthy appearing, alert and well nourished [facility] Common normals: normocephalic and head/scalp atraumatic Eye Common normals: PERRL and EOMs intact bilaterally Respiratory Common normals: normal respiratory effort, no retractions, no use of accessory muscles and clear to auscultation bilaterally Cardio Common normals: regular rate, regular rhythm, S1 normal heart sound and S2 normal heart sound GI Common normals: Normal to inspection, nondistended, normoactive bowel sounds present, soft to palpation and non-tender Extremity Common normals: normal to inspection and full ROM Neuro Common normals: oriented x3, CN's II-XII intact bilaterally, moves all extremities and no focal motor deficits Psych Appearance: grossly normal Course Vital Signs Vital signs: Vital Signs Pulse Rate 70 01/19/25 02:47 Respiratory Rate 18 01/19/25 02:47 Blood Pressure 155/70 H 01/19/25 02:47 Pulse Oximetry 99 01/19/25 02:47 Oxygen Delivery Method Room Air 01/19/25 02:47 Pulse Rate 70 01/19/25 06:00 Respiratory Rate 13 01/19/25 06:00 Blood Pressure 140/68 01/19/25 06:00 Pulse Oximetry 98 01/19/25 05:50 Oxygen Delivery Method Room Air 01/19/25 02:47 MDM - Arrhythmia/Palpitations MDM Narrative Medical decision making narrative: patient with past history of anxiety. Recent mitral valve surgery and pacemaker placement. States since her surgery she is now able to walk without being short of breath. States history of A. fib. EKG and monitor here in the department with paced rhythm. Workup in the department with neg serial troponin. cxray per my review with cardiomegaly. no infiltrates. Patient informed of the neg workup. Not clear why she has the sensation of palpitations but may be anxiety related. Advised to follow up with her family doctor for recheck Lab Data Labs: Lab Results 01/19/25 01/19/25 Range/Units 03:06 05:40 WBC 7.1 (4.0-11.0) 10^3/uL RBC 4.14 L (4.20-5.40) 10^6/uL Hgb 12.7 (12.0-16.0) g/dL Hct 38.7 (36.0-48.0) % MCV 93.5 (81.0-99.0) fL MCH 30.7 (26.7-34.0) pg MCHC 32.8 (29.9-35.2) g/dL RDW 13.3 (11.0-15.0) % Plt Count 181 (150-450) 10^3/uL MPV 10.5 (9.5-13.5) fL Neut % (Auto) 65.6 (43.0-75.0) % Lymph % (Auto) 23.8 (20.5-60.0) % Shannon % (Auto) 7.4 (1.7-12.0) % Eos % (Auto) 1.7 (0.9-7.0) % Baso % (Auto) 0.4 (0.2-2.0) % Neut # (Auto) 4.7 (1.4-6.5) 10^3/uL Lymph # (Auto) 1.7 (1.2-3.8) 10^3/uL Shannon # (Auto) 0.5 (0.3-0.8) 10^3/uL Eos # (Auto) 0.1 (0.0-0.7) 10^3/uL Baso # (Auto) 0.0 (0.0-0.1) 10^3/uL Abs Immat Gran (auto) 0.08 H (0.00-0.03) 10^3/uL Imm/Tot Granulo (auto) 1.1 H (0.0-0.5) % Sodium 141 (136-145) mmol/L Potassium 4.2 (3.5-5.1) mmol/L Chloride 106 (98-107) mmol/L Carbon Dioxide 27.8 (21.0-32.0) mmol/L Anion Gap 11.4 BUN 16.0 (7.0-18.0) mg/dL Creatinine 0.69 (0.55-1.02) mg/dL Est GFR ( Amer) >60 (>=60 mL/min/1.73m^2) Est GFR (Non-Af Amer) >60 (>=60 mL/min/1.73m^2) BUN/Creatinine Ratio 23.2 Glucose 116 H (74-106) mg/dL Calcium 8.9 (8.5-10.1) mg/dL Troponin I High Sens 16.8 17.3 (4.0-51.3) pg/mL Discharge Plan Discharge Chief Complaint: Arrhythmia/Palpitations Clinical Impression: Palpitations Patient Disposition: Home, Self-Care Prescriptions / Home Meds: No Action Eliquis 5 mg tablet 5 mg PO BID carvedilol 6.25 mg tablet 6.25 mg PO BID atorvastatin 40 mg tablet 40 mg PO .once daily spironolactone 25 mg tablet 12.5 mg PO .once daily lorazepam 0.5 mg tablet 0.5 mg PO TID PRN (Reason: anxiety) Print Language: [place] Instructions: Heart Palpitations (ED) Additional Instructions: follow up with your doctor in the next 1-2 days for recheck Referrals: TANESHA HOOVER [Primary Care Provider] - 1 week Discharge Date/Time: 01/19/25 07:13
--- NOTE | 2025-01-19 03:59 | XR_ITS ---
[address] [address] Patient Name: HARJIT ULLOA MRN: [id number] date: 1950 Sex: F Assigned Patient Location: ER Current Patient Location: Accession/Order Number: [id number] Exam Date: 01/19/2025 09:47 Report Date: 01/19/2025 09:48 At the request of: SOFÍA BLOOM MD Procedure: XR chest 1V Plain film chest Single view HISTORY: Heart palpitations COMPARISON: 10/15/2023 FINDINGS: SUPPORT DEVICES: None POSTSURGICAL CHANGES: Cardiac device remains intact. HEART: Borderline cardiomegaly redemonstrated. PULMONARY CORWIN: Within normal limits MEDIASTINUM: Unremarkable LUNGS AND PLEURA: No acute lung process, pleural effusion or pneumothorax identified. BONY STRUCTURES: Intact ADDITIONAL FINDINGS None XR/XR chest 1V IMPRESSION: No acute process. Borderline cardiomegaly. Intact cardiac device. Impression dictated by: Duke Cortes M.D. 01/19/2025 9:48 AM Dictation Location: [employer] Electronically authenticated by: [id number] Y Date: 01/19/2025 09:48
[2025-01-19 04:06] LABS: Basophils Percent Auto 0.4 % (0.2-2.0); Eosinophils Absolute Auto 0.1 10^3/uL (0.0-0.7); Eosinophils Percent Auto 1.7 % (0.9-7.0); Hematocrit 38.7 % (36.0-48.0); Hemoglobin 12.7 g/dL (12.0-16.0); Immature Granulocytes Abs Auto 0.08 10^3/uL (0.00-0.03); Immature Granulocytes Pct Auto 1.1 % (0.0-0.5); Lymphocytes Absolute Auto 1.7 10^3/uL (1.2-3.8); Lymphocytes Percent Auto 23.8 % (20.5-60.0); Mean Corpuscular HGB Conc 32.8 g/dL (29.9-35.2); Mean Corpuscular Hemoglobin 30.7 pg (26.7-34.0); Mean Corpuscular Volume 93.5 fL (81.0-99.0); Mean Platelet Volume 10.5 fL (9.5-13.5); Monocytes Absolute Auto 0.5 10^3/uL (0.3-0.8); Monocytes Percent Auto 7.4 % (1.7-12.0); Neutrophils Absolute Auto 4.7 10^3/uL (1.4-6.5); Neutrophils Percent Auto 65.6 % (43.0-75.0); Platelet Count 181 10^3/uL (150-450); Red Blood Count 4.14 10^6/uL (4.20-5.40); Red Cell Distribution Width 13.3 % (11.0-15.0); White Blood Count 7.1 10^3/uL (4.0-11.0)
[2025-01-19 04:17] LABS: Anion Gap 11.4; BUN Creatinine Ratio 23.2; Calcium 8.9 mg/dL (8.5-10.1); Carbon Dioxide 27.8 mmol/L (21.0-32.0); Chloride 106 mmol/L (98-107); Estimated GFR (African America >60 (>=60 mL/min/1.73m^2); Estimated GFR (Non-African Ame >60 (>=60 mL/min/1.73m^2); Glucose 116 mg/dL (74-106); Potassium 4.2 mmol/L (3.5-5.1); Sodium 141 mmol/L (136-145); Troponin I High Sensitivity 16.8 pg/mL (4.0-51.3)
[2025-01-19 06:15] LABS: Troponin I High Sensitivity 17.3 pg/mL (4.0-51.3)
== END 2025-01-19 07:13 | disposition home or self-care (01) ==
PROVIDERS: Emergency Provider Internal Medicine; PCP Student in an Organized Health Care Education/Training Program
DX: R00.2 Palpitations (principal); Z95.0 Presence of cardiac pacemaker; Z95.2 Presence of prosthetic heart valve; R68.84 Jaw pain; I51.7 Cardiomegaly
CPT/HCPCS: 36415; 71045; 80048; 84484; 85025; 93005; 99285

== ENCOUNTER 2025-01-30 09:52 | Emergency (ER) | payer MEDICARE, BC, SELFPAY ==
--- OUTSIDE RECORDS SUMMARY | 2025-01-22 14:00 | XMS_ITS | Encounter Summary ---
Author Organization [facility] Address [address] [place] [address] Care Team Providers Care Vice President Of Talent Management Name Role Phone Isaac Nazario MD Unavailable [phone] Hannah Brian MD Primary Care Provider [phone] Reason for Visit * Reason Comments ER Follow-up Encounter Details Date Type Department Care Team (Late st Contact Info) Description 01/22/2025 2:00 PM EDT Office Visit 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 Never 08/05/2024 Q2: How many drinks containi ng alcohol do you have on a typical day when you are drinking? Patient does not drink Q3: How often do you have si x or more drinks on one occasion? Never 08/05/2024 PHQ-2 Answer Date Recorded Patient Health Questionnaire-2 Score 1 11/25/2024 Comments No Sex and Gender Information Value Date Recorded Sex Assigned at Not on file Legal Sex Female 7:24 PM EDT Gender Identity Not on file Sexual Orientation Not on file documented as of this encounter Last Filed Vital Signs Vital Sign Reading Time Taken Comments Blood Pressure 138/60 01/22/2025 1:56 PM EDT Pulse 70 01/22/2025 1:56 PM EDT Temperature 36.7 C (98 F) 01/22/2025 1:56 PM EDT Respiratory Rate - - Oxygen Saturation 99% 01/22/2025 1:56 PM EDT Inhaled Oxygen Concentration - - Weight 61.2 kg (135 lb) 01/22/2025 1:56 PM EDT Height 160 cm (5' 3 ) 01/22/2025 1:56 PM EDT Body Mass Index 23.91 01/22/2025 1:56 PM EDT documented in this encounter Progress Notes * Hannah Brian MD - 01/22/2025 2:00 PM EDT Images from the original note were not included. Patient: Asya Asencio : 1950 PCP: Hannah Brian MD Asya Asencio is a 74 y.o. female presenting today for follow-up after being seen in ED. The main problem requiring evaluation was palpitations. The discharge summary and/or Transitional Care Management documentation was reviewed. Medication reconciliation was performed as indicated via the Cyrus as Reviewed timestamp. Flowsheet Row Patient Outreach from 01/20/2025 in [facility] with Loida Nathan LPN Hospital Information Engagement Medications Appointments Self Management Does patient have home health? no Patient Teaching What is the patient's perception of their health status since discharge? Improving Wrap Up Review of Systems General: Denies fever, chills, fatigue, DICKINSON or weight loss/gain CV: Denies CP, palpitations or swelling in legs Resp: denies cough, SOB or wheezing GI: Denies abd pain/n/v/c/d Skin: Denies rash Neuro: Denies LH or dizziness Objective Vitals: 01/22/25 1356 BP: 138/60 Pulse: 70 Temp: 98 ??F SpO2: 99% Physical Exam General: alert & oriented, NAD Head: NC/AT Oral Cavity: MMM Skin: warm, dry Heart: RRR, No m/r/g, S1S2 nml Lungs: CTA b/l Abdomen: soft, ND/NT, BS wnl Musculoskeletal: normal gait Extremities: no clubbing, cyanosis or edema Neurological: nonfocal Psych: mood/affect full range Assessment/Plan Asya was seen today for er follow-up. 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 No changes in meds at this time Encouraged continued follow up with specialists Follow up if symptoms worsen or fail to improve. 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
--- OUTSIDE RECORDS SUMMARY | 2025-01-23 14:40 | XMS_ITS | Encounter Summary ---
Author Organization [facility] Address [address] [place] [address] Care Team Providers Care Work Ticket Distributor Name Role Phone Hannah Brian MD Primary Care Provider [phone] Reason for Visit * Reason Comments Valve Disorder Atrial Fibrillation Encounter Details Date Type Department Care Team (Late st Contact Info) Description 01/23/2025 2:40 PM EDT Follow-Up [facility] Heart at [facility] [address] [place] [address] Niecy Mazariegos, [employer] [address] [place] [address] Nonrheumatic mitral valve regurgitation (Primary Dx); Severe mitral regurgitation; S/P mitral valve repair; Primary hypertension; Chronic systolic heart failure (CMS/HCC); Nonrheumatic tricuspid valve regurgitation; Paroxysmal atrial fibrillation (CMS/HCC); Presence of biventricular automatic cardioverter/defibrill ator (AICD); Cardiac pacemaker in situ Social History Tobacco Use Types Packs/Day Years Used Date Smoking Tobacco: Former Cigarettes Passive Smoke Exposure: Past Smokeless Tobacco: Never Passive Exposure Comments:so cial smoker stopped in 1989 Alcohol Use Standard Drinks/Week Comments Never 0 (1 standard drink = 0.6 oz pur e alcohol) [facility] Utilities Answer Date Recorded In the past 12 months has th e electric, gas, oil, or water zumatek threatened to shut off services in your home? No 01/14/2025 Humiliation, Afraid, Rape, and Kick questionnair e Answer Date Recorded Within the last year, have y ou been afraid of your partner or ex-partner? No 01/14/2025 Emotionally Abused Not on file 01/14/2025 Physically Abused Not on file 01/14/2025 Sexually Abused Not on file 01/14/2025 Overall Financial Resource Strain (CARDIA) Answe r Date Recorded How hard is it for you to pa y for the very basics like food, housing, medical care, and heating? Not hard at all 01/14/2025 PHQ-2 Answer Date Recorded Patient Health Questionnaire-2 Score 0 02/22/2024 Transportation Answer Date Recorded In the past 12 months, has l ack of transportation kept you from medical appointments or from getting medications? No 01/14/2025 Lack of Transportation (Non-Medical) Not on file 01/14/2025 Housing Stability Vital Sign Answer Frederic e Recorded In the last 12 months, was t here a time when you were not able to pay the mortgage or rent on time? No 01/14/2025 In the past 12 months, how m any times have you moved where you were living? 0 01/14/2025 At any time in the past 12 m [facility], were you homeless or living in a alf (including now)? No 01/14/2025 Hunger Vital Sign Answer Date Recorded Within the past 12 months, y ou worried that your food would run out before you got the money to buy more. Never true 01/15/20 25 Ran Out of Food in the Last Year Not on file 01/14/2025 Comments No Sex and Gender Information Value Date Recorded Sex Assigned at Not on file Legal Sex Female 2:11 PM EST Gender Identity Not on file Sexual Orientation Not on file documented as of this encounter Last Filed Vital Signs Vital Sign Reading Time Taken Comments Blood Pressure 134/74 01/23/2025 2:22 PM EDT Pulse 74 01/23/2025 2:22 PM EDT Temperature - - Respiratory Rate - - Oxygen Saturation 97% 01/23/2025 2:22 PM EDT Inhaled Oxygen Concentration - - Weight 60.8 kg (134 lb) 01/23/2025 2:22 PM EDT Height 165.1 cm (5' 5 ) 01/23/2025 2:22 PM EDT Body Mass Index 22.3 01/23/2025 2:22 PM EDT documented in this encounter Progress Notes * Sherlyn Adair MA - 01/23/2025 2:40 PM EDT Patient is here today for a follow up S/P mitral clip. Patient state she is doing good, she feels like she is getting blood to her body. Patient denies any cardiac symptoms at this time. Patient would like to talk about the Eliquis due to having blood in urine, its making here feel like she has a UTI. Review of Systems Constitutional: Negative. * Niecy Mazariegos CNP - 01/23/2025 2:40 PM EDT Images from the original note were not included. Cardiovascular Medicine [facility] SUBJECTIVE Chief Complaint Patient presents with Valve Disorder Atrial Fibrillation Asya Asencio is a 74 y.o. female here for follow-up. HPI PMHx: HFrEF 40% s/p ICD 02/2024, a.fib s/p AVN ablation 05/2024, HTN, hypothyroidism, mitral valve regurg 01/23/2025 She has been feeling better since her procedure. She has more energy, less shortness of breath. She has some dental work that will eventually need done. She notes intermittent blood in her urine. She denies CP, orthopnea, PND, LE edema, palpitations, dizziness, syncope. 07/02/2024 She has overall been doing well since her ablation procedure. She has heartburn with some acid reflux - midsternal, worsens when she lays down. Started after sheate something that she probably shouldn't have. 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 Paroxysmal atrial fibrillation (CMS/HCC) Presence of biventricular automatic cardioverter/defibrillator (AICD) Nonrheumatic mitral valve regurgitation Severe mitral regurgitation S/P mitral valve repair Past Medical History: Diagnosis Date Abnormal ECG Adjustment disorder with mixed anxiety and depressed mood Afib ([facility]/HCC) Anxiety Arrhythmia Atherosclerosis of aorta Atrial fibrillation ([facility]/HCC) CHF (congestive heart failure) ([facility]/HCC) Chronic fatigue syndrome GERD (gastroesophageal reflux disease) Heart murmur Heart valve disease Hypertension Hypothyroidism Intestinal obstruction ([facility]/HCC) Non-rheumatic mitral regurgitation Nonischemic cardiomyopathy ([facility]/HCC) Nonrheumatic tricuspid valve regurgitation Panic attack Presence of biventricular automatic cardioverter/defibrillator (AICD) Seasonal allergies Severe protein-calorie malnutrition Family History Problem Relation Name Age of Onset Coronary artery disease Mother Diabetes Mother Coronary artery disease Father Social History Tobacco Use Smoking status: Former Types: Cigarettes Passive exposure: Past (social smoker stopped in 1989) Smokeless tobacco: Never Substance Use Topics Alcohol use: Never Drug use: Never Allergies Allergen Reactions Demerol [Meperidine] Shortness of breath Amiodarone Nausea And Vomiting Amoxicillin Diarrhea Cephalexin GI intolerance, Nausea And Vomiting and Unknown Egg Derived Other Reaction(s): allergy Empagliflozin Angioedema Mounjaro Turned hands different colors and not breathing Erythromycin GI intolerance Morphine Unknown Sulfa (Sulfonamide Antibiotics) GI intolerance and Other Valsartan Wheat Bran Other Reaction(s): allergy ROS Cardiovascular: Positive for dyspnea on exertion (improving). Hematologic/Lymphatic: Bruises/bleeds easily. Psychiatric/Behavioral: The patient is nervous/anxious. All other systems reviewed and are negative. OBJECTIVE Visit Vitals BP 134/74 (BP Location: Left arm, Patient Position: Sitting) Pulse 74 Ht 1.651 m (5' 5 ) Wt 60.8 kg (134 lb) SpO2 97% BMI 22.30 kg/m?? OB Status Postmenopausal Smoking Status Former BSA 1.67 m?? Medications: Current Outpatient Medications: apixaban (Eliquis) 5 mg tablet, Take 1 tablet (5 mg) by mouth two times daily., Disp: 180 tablet, Rfl: 3 atorvastatin (Lipitor) 40 mg tablet, Take 1 tablet (40 mg) by mouth in the evening. Do not take at bedtime, Disp: 90 tablet, Rfl: 3 carvedilol (Coreg) 3.125 mg tablet, Take 1 tablet (3.125 mg) by mouth with breakfast and with evening meal., Disp: 60 tablet, Rfl: 2 LORazepam (Ativan) 0.5 mg tablet, Take 1 mg by mouth three times daily., Disp: , Rfl: spironolactone (Aldactone) 25 mg tablet, Take 0.5 tablets (12.5 mg) by mouth once daily as directed., Disp: 45 tablet, Rfl: 3 Physical Exam Vitals reviewed. [...] regular rhythm. Pulses: Normal pulses. Heart sounds: Normal heart sounds. Pulmonary: Effort: Pulmonary effort is normal. Breath sounds: Normal breath sounds. Abdominal: General: Bowel sounds are normal. Palpations: Abdomen is soft. Musculoskeletal: Cervical back: Neck supple. Right lower leg: No edema. Left lower leg: No edema. Skin: General: Skin is warm and dry. Neurological: General: No focal deficit present. Mental Status: She is alert and oriented to person, place, and time. Psychiatric: Mood and Affect: Mood normal. Behavior: Behavior normal. Thought Content: Thought content normal. Judgment: Judgment normal. Labs: Admission on 01/14/2025, Discharged on 01/15/2025 Component Date Value Ref Range Status Protime 01/14/2025 14.0 12.3 - 14.8 Seconds Final INR 01/14/2025 1.08 0.90 - 1.10 Final Glucose POC 01/14/2025 92 70 - 105 mg/dL Final Sodium 01/14/2025 138 136 - 145 mmol/L Final Potassium 01/14/2025 3.9 3.5 - 5.1 mmol/L Final Chloride 01/14/2025 107 98 - 107 mmol/L Final CO2 01/14/2025 26 21 - 31 mmol/L Final BUN 01/14/2025 11 7 - 25 mg/dL Final Creatinine 01/14/2025 0.80 0.60 - 1.20 mg/dL Final Glucose 01/14/2025 97 70 - 100 mg/dL Final Calcium 01/14/2025 8.5 (L) 8.6 - 10.3 mg/dL Final Anion Gap 01/14/2025 9 7 - 20 mmol/L Final eGFR 01/14/2025 76.3 >60.0 mL/min/1.73m*2 Final BUN/Creatinine Ratio 01/14/2025 13.8 Final ABO Grouping 01/14/2025 O Final Rh Type 01/14/2025 POS Final Ab Scrn 01/14/2025 NEG Final Auto WBC 01/14/2025 4.84 4.00 - 10.60 10*3/uL Final RBC 01/14/2025 3.80 3.80 - 5.00 10*6/uL Final Hemoglobin 01/14/2025 11.8 (L) 12.0 - 15.0 g/dL Final Hematocrit 01/14/2025 35.8 (L) 36.0 - 45.0 % Final MCV 01/14/2025 94.2 82.0 - 98.0 fL Final MCH 01/14/2025 31.1 27.0 - 33.0 pg Final MCHC 01/14/2025 33.0 32.0 - 35.0 g/dL Final RDW 01/14/2025 13.4 11.5 - 15.0 % Final Neutrophils % 01/14/2025 61.6 40.0 - 72.0 % Final Lymphocytes % 01/14/2025 27.7 20.0 - 45.0 % Final Monocytes % 01/14/2025 8.3 5.0 - 12.0 % Final Eosinophils % 01/14/2025 1.4 0.0 - 6.0 % Final Basophils % 01/14/2025 0.6 0.0 - 1.0 % Final Neutrophils Absolute 01/14/2025 2.98 1.60 - 7.60 10*3/uL Final Lymphocytes Absolute 01/14/2025 1.34 1.20 - 4.00 10*3/uL Final Monocytes Absolute 01/14/2025 0.40 0.10 - 1.00 10*3/uL Final Eosinophils Absolute 01/14/2025 0.07 0.00 - 0.50 10*3/uL Final Basophils Absolute 01/14/2025 0.03 0.00 - 0.20 10*3/uL Final Platelets 01/14/2025 178 150 - 400 10*3/uL Final nRBC % 01/14/2025 0.0 0 % Final Immature Granulocytes % 01/14/2025 0.4 0.0 - 1.0 % Final Immature Granulocytes Absolute 01/14/2025 0.02 0.00 - 0.20 10*3/uL Final Ventricular Rate 01/14/2025 71 BPM Final Atrial Rate 01/14/2025 69 BPM Final QRS DURATION 01/14/2025 176 ms Final QT Interval 01/14/2025 514 ms Final QTC CALCULATION(BAZETT) 01/14/2025 558 ms Final R-[place] 01/14/2025 -52 degrees Final T Wave [place] 01/14/2025 52 degrees Final Auto WBC 01/15/2025 12.19 (H) 4.00 - 10.60 10*3/uL Final RBC 01/15/2025 4.48 3.80 - 5.00 10*6/uL Final Hemoglobin 01/15/2025 13.6 12.0 - 15.0 g/dL Final Hematocrit 01/15/2025 45.2 (H) 36.0 - 45.0 % Final MCV 01/15/2025 100.9 (H) 82.0 - 98.0 fL Final MCH 01/15/2025 30.4 27.0 - 33.0 pg Final MCHC 01/15/2025 30.1 (L) 32.0 - 35.0 g/dL Final RDW 01/15/2025 13.4 11.5 - 15.0 % Final Platelets 01/15/2025 176 150 - 400 10*3/uL Final Sodium 01/15/2025 133 (L) 136 - 145 mmol/L Final Potassium 01/15/2025 4.7 3.5 - 5.1 mmol/L Final Chloride 01/15/2025 106 98 - 107 mmol/L Final CO2 01/15/2025 19 (L) 21 - 31 mmol/L Final BUN 01/15/2025 16 7 - 25 mg/dL Final Creatinine 01/15/2025 0.84 0.60 - 1.20 mg/dL Final Glucose 01/15/2025 123 (H) 70 - 100 mg/dL Final Calcium 01/15/2025 8.3 (L) 8.6 - 10.3 mg/dL Final Anion Gap 01/15/2025 13 7 - 20 mmol/L Final eGFR 01/15/2025 72.0 >60.0 mL/min/1.73m*2 Final BUN/Creatinine Ratio 01/15/2025 19.0 Final GVUBIG56% 01/14/2025 97.3 (A) 90 - 95 % Final QC Pass/Fail 01/14/2025 Passed Final QC LOT # 01/14/2025 548,963 Final QC Expiration Date 01/14/2025 73,126 Final SAMPLESITE 01/14/2025 nl Final POCT ACT 01/14/2025 158 (A) 82 - 152 seconds Final QC Pass/Fail 01/14/2025 Passed Final QC LOT # 01/14/2025 8 Final QC Expiration Date 01/14/2025 73,125 Final POCT ACT 01/14/2025 303 (A) 82 - 152 seconds Final QC Pass/Fail 01/14/2025 Passed Final QC LOT # 01/14/2025 8 Final QC Expiration Date 01/14/2025 73,125 Final POCT ACT 01/14/2025 331 (A) 82 - 152 seconds Final QC Pass/Fail 01/14/2025 Passed Final QC LOT # 01/14/2025 8 Final QC Expiration Date 01/14/2025 73,125 Final POCT ACT 01/14/2025 150 82 - 152 seconds Final QC Pass/Fail 01/14/2025 Passed Final QC LOT # 01/14/2025 8 Final QC Expiration Date 01/14/2025 73,125 Final Ventricular Rate 01/15/2025 72 BPM Final Atrial Rate 01/15/2025 55 BPM Final QRS DURATION 01/15/2025 124 ms Final QT Interval 01/15/2025 416 ms Final QTC CALCULATION(BAZETT) 01/15/2025 455 ms Final R-[place] 01/15/2025 116 degrees Final T Wave [place] 01/15/2025 14 degrees Final No results found for: EXTCMP , BMPR1A , CBCDIF , BNP , LASAP , RED 06/03/2024 CBC - unremarkable Cr 0.8, BUN12, K 4.3, Na 137, eGFR 76 Lab on 02/22/2024 Component Date Value Auto WBC 02/22/2024 8.26 RBC 02/22/2024 4.30 Hemoglobin 02/22/2024 12.9 Hematocrit 02/22/2024 40.0 MCV 02/22/2024 93.0 MCH 02/22/2024 30.0 MCHC 02/22/2024 32.3 RDW 02/22/2024 13.1 Platelets 02/22/2024 210 Sodium 02/22/2024 137 Potassium 02/22/2024 4.5 Chloride 02/22/2024 103 CO2 02/22/2024 28 BUN 02/22/2024 15 Creatinine 02/22/2024 0.95 Glucose 02/22/2024 98 Calcium 02/22/2024 9.4 Anion Gap 02/22/2024 11 eGFR 02/22/2024 62.5 BUN/Creatinine Ratio 02/22/2024 15.8 Blood testing 10/15/2023: Hemoglobin 12.7, platelets 204, potassium 4.2, BUN 24, creatinine 0.99, estimated GFR 55, LFTs normal, high-sensitivity troponin 11.4, NT proBNP 4517. Testing/Procedures: Encounter Date: 01/14/25 ECG 12 lead Result Value Ventricular Rate 72 Atrial Rate 55 QRS DURATION 124 QT Interval 416 QTC CALCULATION(BAZETT) 455 R-[place] 116 T Wave [place] 14 Impression Ventricular-paced rhythm Biventricular pacemaker detected Abnormal ECG When compared with ECG of 14-JAN-2025 14:56, No significant change was found Confirmed by Pedro MARTINEZ, GABE Ayoub ([id number]) on 01/15/2025 11:15:42 AM Limited 01/15/25 Left Ventricle: The left ventricle is normal size. Global left ventricular systolic function is mildly reduced. The calculated Biplane EF is 51 %. EF range is estimated at 45 % -50 %. Left ventricular wall thickness is normal. The septum is abnormal, consistent with RV volume and/or pressure overload. Right Ventricle: The right ventricle appears normal in size. Normal right ventricular systolic function. Left Atrium: The left atrium appears enlarged. Right Atrium: The right atrium is severely enlarged. Mitral Valve: Well seated mitral clip with mild eccentric regurgitation and a mean gradientof 3mmHg. Mild mitral regurgitation. Aortic Valve: Mild aortic valve regurgitation. Tricuspid Valve: Moderate to severe tricuspid regurgitation. Overall Conclusions: Due to suboptimal imaging Lumasoncontrast was administered for opacification and better delineation of endocardial borders. label drier PROCEDURES: 01/14/25 Successful transcatheter [id number] repair (ANA) of the mitral valve using XTW MitraClip device. Transseptal puncture performed under fluoroscopic and transesophageal echocardiography guidance. Preclosure in the right common femoral vein using two 6-Chinese ProGlide devices. Access into the right and left common femoral vein under ultrasound guidance. HEMODYNAMICS: At baseline: LA 16 mmHg with V-wave to 25 mmHg. Post procedure: LA 12 mmHg with V-wave to 16 mmHg. RECOMMENDATIONS: 1. Eliquis 5 mg twice daily to start tomorrow morning. 2. Echocardiogram the next morning. 3. Endocarditis prophylaxis for life after transcatheter mitral valve repair. 4. Follow up in Cardiology Clinic in 1 month with echocardiogram. AV NODE ABLATION PROCEDURE REPORT DATE OF PROCEDURE: 06/10/2024 PERFORMING PHYSICIAN: Dr. Marco Peguero CONSENT: Patient NAME OF THE PROCEDURE: AV node ablation LOCATION: EP Lab INDICATIONS FOR PROCEDURE: 1. Atrial fibrillation with RVR. IMPRESSION: 1. Successful AV Node ablation. 2. Device thresholds pre and post ablation. RECOMMENDATIONS: 1. No heavy lifting for 1 week. 2. Follow up in EP clinic in 1 month. 3. Continue anticoagulation. Echocardiogram 05/09/2024: Normal effort exercise. Systolic function is moderately reduced. LVEF is estimated at 35 to 40%. Normal right ventricular size and systolic function. Severe biatrial dilatation. Moderate mitral regurgitation. Moderate to severe tricuspid regurgitation. Moderately elevated right-sided pressures. RVSP is 49 mmHg. Device check 03/26/2024: Normal function, lead measurements stable, 4 NSVT events. ECG 02/28/2024: Ventricular-paced rhythm with occasional Premature ventricular complexes Biventricular pacemaker detected Abnormal ECG EP procedure 02/28/2024: IMPRESSION: 1. Successful Biventricular ICD implantation with excellent pacing and sensing parameters. (Submuscular pocket) Cardiopulmonary exercise stress test 10/31/2023: FINDINGS: 1. Maximal treadmill test is limited by dyspnea. 2. Duration of exercise 7:00 minutes utilizing the ramping protocol. 3. Heart rate response was reduced (Patient was taking digoxin and beta-yolette) at a low (RPP<200) cardiac work rate. 4. Systolic Blood Pressure response was normal. Diastolic Blood Pressure response was normal . 5. Peak Oxygen Consumption (VO2) was 17.3 ml/O2/kg/min or 4.9 METS. Functional capacity was 30% of predicted peak VO2, which is low. 6. Anaerobic Treshold (AT) occurred at 11.3ml/O2/kg/min or 19% of predicted peak VO2, which is low.Heart Rate at AT was 110 beats/min. 7. Pulmonary Function is normal. Forced Vital Capacity (FVC) was 2.57 liters, which is 93% predicted. Forced Expiratory Volume in one second (FEV1) was 1.98 liters which is 93% predicted. Maximum Voluntary Ventilation (MVV) was 88 liters per minute, which is 103% predicted. FEV1/FVC was 77% 8. Peak Ventilation was 35.3 liters/min. 9. VT/FVC increased from 0.18 at rest to 0.44 at peak exerise. 10. HR [place] was 2.3%, which is normal. 11. Peak O2 Pulse was 6.02 ml/beats, which is low 12. Breathing reserve was 58.3% or 49.4 liters, which is normal. Respiratory rate increased from 16 to 31 breaths per minute. 13. Symptoms during testing: dyspnea. 14. ECG response showed Afib and was not ischemic. The test was performed while the patient was taking digoxin, B-yolette. 15. Arrhythmias seen 16. This study shows no evidence of ischemia. If Equivocal, please explain: NA 17. Sensitivity for ischemia is reduced by low RPP. Additional comments: VE/VCO2=41, RER=1.17 ECG 10/30/2023: Atrial fibrillation, rightward axis, nonspecific ST and T wave abnormality. ECG 10/15/2023: Atrial fibrillation, moderate right axis deviation. ECG 10/15/2023: Atrial fibrillation with rapid ventricular response. Echocardiogram 10/13/2023: CONCLUSION: 1. Global left ventricular systolic function is mildly reduced; visually estimated ejection fraction is 40 to 45% 2. Segmental wall motion abnormalities are seen 3. Normal right ventricular size and systolic function 4. Biatrial enlargement A limited echocardiogram was performed Right heart catheterization 08/23/2023 (at [facility]): Physician Review of hemodynamic waveforms: - RA mean 4, RV 29/4, PA 32/11 (17), PCWP 8 with V waves to 16mmHg, TPG 9, MVO2 62%, SaO2 95%, CO davina 3 l/min, CI [place] 1.9 L/min/m2. Carotid duplex 08/23/2023: IMPRESSION Irregular cardiac rhythm noted. RIGHT SIDE [...] Technologist: Romana Newsome T Ordering physician: MICHELINE BARRIGA Interpreting physician: Eleonora Moffett MD, [facility] CTA 08/23/2023: IMPRESSION: Dilated left ventricle, biatrial enlargement. Mitral valve is noncalcified. Normal caliber thoracic aorta. Echocardiogram 08/23/2023: CONCLUSIONS: - Exam indication: Valvular heart disease [...] a prior CC echocardiographic exam for comparison. ECHO TRANSESOPHAGEAL Collected: 08/28/2023 3:59 PM (Final result) Impression: CONCLUSIONS: - Exam indication: Pre Cardioversion, Pre AF Ablation - The left ventricle is dilated. Left ventricular systolic function is moderately decreased. EF = 40 ?? 5% (visual est.) No transgastric views to [...] regurgitation. Regurgitant orifice area (PISA) is 0.32 cm??. Mild anterior leaflet override. Two regurgitant jets, one originating from the medial aspect of the coaptation line, the other just lateral of center. May be atrial functional MR. - There is moderately severe (3+) tricuspid valve regurgitation. Suspect atrial functional TR. Predominant jet between septal and posterior leaflets. - Exam was compared with the prior CC echocardiographic exam performed on 08/23/2023. Similar findings. Cardiac catheterization at [facility] 07/06/2023: Nonobstructive coronary artery disease of the ostial LAD which does not appear to be flow-limiting or require further evaluation. Angiographically normal left circumflex and RCA. Severe left ventricular dysfunction with a left ventricular ejectionfraction of 25 to 30%. Severe mitral regurgitation as evidenced by left ventricular angiogram and confirmed by markedly elevated V wave on [place] catheter wedge pressure tracing. Normal left ventricular end-diastolic pressure. Mild pulmonary hypertension by right heart catheterization. ASSESSMENT/PLAN: Diagnoses and all orders for this visit: Nonrheumatic mitral valve regurgitation Severe mitral regurgitation S/P mitral valve repair Primary hypertension Chronic systolic heart failure (CMS/HCC) Nonrheumatic tricuspid valve regurgitation Paroxysmal atrial fibrillation (CMS/HCC) Presence of biventricular automatic cardioverter/defibrillator (AICD) Cardiac pacemaker in situ #Mitral valve regurg #s/p MitraClip 01/14/25 -She is feeling well since her recent MitraClip procedure -Follow-up as scheduled in [address] Robins with an ECHO prior. She currently has 2 TTE'sscheduled. She can have this done at [facility], does not need to be done at [facility]. #Persistent a.fib s/p AVN ablation 05/2024 -RRR on exam -No recent events noted on home monitor -She has intermittent blood in her urine. Discussion about an LAAO device had been done at a previous visit. Will have her further discuss with Dr. Robins at her next visit. -Continue Bb and Eliquis 5mg BID #HFrEF s/p BiV-ICD -LVEF 35-40% -She appears compensated/euvolemic on exam -GDMT: continue coreg 6.25mg BID, aldactone 12.5mg BID. Of note, she has not tolerated additional therapies in the past and prefers to keep her medications the same. -F/U ECHO in 6 weeks #Tricuspid valve regurg -Noted to be severe on prior imaging -Will reassess at her next ECHO Follow up in about 4 weeks (around 02/20/2025). Niecy Mazariegos CNP [facility] Cardiovascular Medicine documented in this encounter Plan of Treatment Upcoming Encounters Date Type Department Care Team (Late st Contact Info) Description 02/10/2025 1:45 PM EDT Follow-Up [place] [address] [place] [address] Rafael Robins MD [address] [facility] [place] [address] 02/18/2025 3:45 PM EDT Ancillary Procedure [facility] [address] [place] [address] documented as of this encounter Visit Diagnoses Diagnosis Nonrheumatic mitral valve regurgitation- Primary Severe mitral regurgitation S/P mitral valve repair Other postprocedural status Primary hypertension Unspecified essential hypertension Chronic systolic heart failure (CMS/HCC) Chronic systolic heart failure Nonrheumatic tricuspid valve regurgitation Paroxysmal atrial fibrillation (CMS/HCC) Atrial fibrillation Presence of biventricular automatic cardioverter/defibrillator (AICD) Cardiac pacemaker in situ documented in this encounter Care Teams Work Ticket Distributor Relationship Specialty Start Date End Date Hannah Brian MD [address] [place] [address] PCP - General Family Medicine 11/03/23 documented as of this encounter
[2025-01-30] VITALS (14 sets, daily range): BP systolic 128–138; BP diastolic 70–88; PULSE 70–90; TEMP 36.6; O2SAT 98–100; BMI 20.8
--- OUTSIDE RECORDS SUMMARY | 2025-01-30 09:59 | XMS_ITS ---
Author Organization [facility] Address [address] [place] [address] [place] [address] Care Team Providers Care Hangar Attendant Name Role Phone Isaac Nazario MD Unavailable [phone] Hannah Brian MD Primary Care Provider [phone] Emergency Department Transitional Care Management (TCM) Status:Closed (Closed) Start date:01/19/2025 Enrollment date:01/20/2025 Enrollment reason:Identified using hospital discharge data End date:01/20/2025 Close reason:Actively enrolled in CCM Overview Discharged from [facility] ER on 01/19. Please contact within 2 days of discharge for ERTOC and schedule a follow-up appointment if needed. Continued Care and Services Coordination
--- OUTSIDE RECORDS SUMMARY | 2025-01-30 09:59 | XMS_ITS | Encounter Summary ---
Author Organization [facility] Address [address] [place] [address] Care Team Providers Care Hiv Nurse Name Role Phone Isaac Nazario MD Unavailable [phone] Hannah Brian MD Primary Care Provider [phone] Encounter Details Date Type Department Care Team (Late st Contact Info) Description 01/16/2025 Patient Outreach [facility] [address] [place] [address] Sana Lei LPN [address] [place] [address] Social History Tobacco Use Types Packs/Day Years [...] on file documented as of this encounter Progress Notes * Sana Lei LPN - 01/16/2025 10:42 AM EDT Records in chart. Pt states that once they fixed the mitral valve she can walk without SOB and her BP is better. [facility] complete, meds reconciled with pt. Pt states she has follow up with cardiologists. Pt scheduled for 01/22 with PCP. 30 day monitor added. Flowsheet Row Patient Outreach from 01/16/2025 in [facility] with Sana Lei LPN Hospital Information ED, Hospital or Retirement Facility Discharge? Hospital Patient has been contacted within two business days of discharge Yes Diagnosis DX:Severe mitral regurgitation (Primary Dx), Nonrheumatic mitral valve regurgitation, Primary hypertension Discharge Date 01/15/25 Discharged To: Home Setting Discharge Hospital [facility] Engagement Call Start Time 1042 Admission Date 01/14/25 Medications Discharge medications reviewed and reconciled from hospital? Yes Is the patient having any side effects they believe may be caused by any medication additions or changes? No Does the patient have all medications ordered at discharge? Yes Appointments Does the patient have a primary care provider? Yes Self Management Patient Teaching Wrap Up Wrap Up Additional Comments Pt had labs, EKG, Echo, mitral valve fixed Call End Time 1051 documented in this encounter Plan of Treatment Upcoming Encounters Date Type Department Care Team (Late st Contact Info) Description 04/09/2025 3:20 PM EDT Office Visit [facility] [address] [place] [address] Hannah Brian MD [address] [place] [address] documented as of this encounter Visit Diagnoses Diagnosis Atrial fibrillation with RVR (HCC)- Primary Panic attack Panic disorder without agoraphobia documented in this encounter Care Teams Hiv Nurse Relationship Specialty Start Date End Date Isaac Nazario MD [address] [place] [address] PCP - ACO Reach 01/05/23 Hannah Brian MD [address] [place] [address] PCP - General Family Medicine 11/03/23 documented as of this encounter
--- OUTSIDE RECORDS SUMMARY | 2025-01-30 09:59 | XMS_ITS | Encounter Summary ---
Author Organization [facility] Address [address] [facility] [facility] [place] [address] Care Team Providers Care Telephone Advice Nurse Name Role Phone Isaac Nazario MD Unavailable [phone] Hannah Brian MD Primary Care Provider [phone] Encounter Details Date Type Department Care Team (Late Contact Info) Description 01/22/2025 Bamboo flowsheet [facility] [address] [place] [address] Hannah Brian MD [address] [place] [address] Social History Tobacco Use Types Packs/Day Years [...] on file documented as of this encounter Plan of Treatment Upcoming Encounters Date Type Department Care Team (Late Contact Info) Description 04/09/2025 3:20 PM EDT Office Visit [facility] [address] [place] [address] Hannah Brian MD [address] [place] [address] documented as of this encounter Visit Diagnoses Not on filedocumented in this encounter Care Teams Telephone Advice Nurse Relationship Specialty Start Date End Date Isaac Nazario MD [address] [place] [address] PCP - ACO Reach 01/05/23 Hannah Brian MD [address] [place] [address] PCP - General Family Medicine 11/03/23 documented as of this encounter
--- OUTSIDE RECORDS SUMMARY | 2025-01-30 09:59 | XMS_ITS | Encounter Summary ---
Author Organization [facility] Address [address] [place] [address] Care Team Providers Care Material Handling Warehouse Supervisor Name Role Phone Isaac Nazario MD Unavailable [phone] Hannah Brian MD Primary Care Provider [phone] Encounter Details Date Type Department Care Team (Late st Contact Info) Description 01/13/2025 Patient Outreach [facility] [address] [place] [id number] Loida Nathan LPN [address] [place] [address] Social History Tobacco Use Types Packs/Day Years [...] as of this encounter Progress Notes * Loida Nathan LPN - 01/13/2025 11:08 AM EDT Pt calls for refill of Ativan 12/17/24. She is requesting now as she will be have Mitraclip procedure done this week and will need this. <January 13, 2025, 11:10 - Loida Nathan LPN> * Hannah Brian MD - 01/13/2025 11:08 AM EDT Rx sent documented in this encounter Miscellaneous Notes * Addendum Note - Hannah Brian MD - 01/13/2025 11:08 AM EDTAddended by: HANNAH BRIAN on: 01/16/2025 08:02 AM Modules accepted: Orders documented in this encounter Plan of Treatment Upcoming Encounters Date Type Department Care Team (Late st Contact Info) Description 04/09/2025 3:20 PM EDT [facility] Visit [facility] [address] [place] [address] Hannah Brian MD [address] [place] [address] documented as of this encounter Visit Diagnoses Diagnosis Atrial fibrillation with RVR (HCC)- Primary Anxiety Anxiety state, unspecified documented in this encounter Care Teams Material Handling Warehouse Supervisor Relationship Specialty Start Date End Date Isaac Nazario MD [address] [place] [address] PCP - ACO Reach 01/05/23 Hannah Brian MD [address] [place] [address] PCP - General Family Medicine 11/03/23 documented as of this encounter
--- OUTSIDE RECORDS SUMMARY | 2025-01-30 09:59 | XMS_ITS | Encounter Summary ---
Author Organization [facility] Address [address] [place] [address] Care Team Providers Care Manager Learning Name Role Phone Isaac Nazario MD Unavailable [phone] Hannah Brian MD Primary Care Provider [phone] Encounter Details Date Type Department Care Team (Late st Contact Info) Description 01/28/2025 Patient Outreach [facility] [address] [place] [address] Loida Nathan LPN [address] [place] [address] Social History Tobacco Use Types Packs/Day Years [...] Progress Notes * Loida Nathan LPN - 01/28/2025 11:17 AM EDT Images from the original note were not included. Contact pt for 2nd weekly monitor. She states that she is doing well. She is not quite back to her baseline. She does get a little SOB at times but overall much better. She is taking walks. She will have FU test to check clips on 02/07/25 and see cardiology on 02/10/25. She states that her BP has been better although she does not check it, states that she can feel when its high/low. No other concerns today. <January 28, 2025, 11:31 - Loida Nathan LPN> Flowsheet Row Patient Outreach from 01/28/2025 in [facility] with Loida Nathan LPN Week Number Call Week 2 Call Was patient contacted successfully? Yes Have you had any urgent care/ED/Hospital visits since discharge? Yes If yes, where did you go? Emergency Room What was the reason? palpitations/anxiety Any medication changes since last contact? No Is the patient taking all medications as directed? Yes Have you visited your PCP since discharge? Yes Have you visited your specialist since discharge? No, scheduled Does patient have home health? no documented in this encounter Plan of Treatment Upcoming Encounters Date Type Department Care Team (Late st Contact Info) Description 04/09/2025 3:20 PM EDT Office Visit [facility] [address] [place] [address] Hannah Brian MD [address] [place] [address] documented as of this encounter Visit Diagnoses Diagnosis Atrial fibrillation with RVR (HCC)- Primary Palpitation Palpitations documented in this encounter Care Teams Manager Learning Relationship Specialty Start Date End Date Isaac Nazario MD [address] [place] [address] PCP - ACO Reach 01/05/23 Hannah Brian MD [address] [place] [address] PCP - General Family Medicine 11/03/23 documented as of this encounter
--- OUTSIDE RECORDS SUMMARY | 2025-01-30 09:59 | XMS_ITS ---
Author Organization [facility] Address [address] [place] [address] Care Team Providers Care Warehouse Team Leader Name Role Phone Isaac Nazario MD Unavailable [phone] Hannah Brian MD Primary Care Provider [phone] 30 Day Monitoring Program Status:Enrolled (Active) Start date:01/16/2025 Enrollment date:01/16/2025 Enrollment reason:Identified as hospital admit Case Team Name Relationship Phone Loida Nathan LPN(Responsible Staff) Licensed [facility] enterprisel Nurse [phone] Continued Care and Services Coordination
--- OUTSIDE RECORDS SUMMARY | 2025-01-30 09:59 | XMS_ITS | Encounter Summary ---
Author Organization [facility] Address [address] [facility] [place] [address] Care Team Providers Care Pharmacy Clerk Name Role Phone Isaac Nazario MD Unavailable [phone] Hannah Brian MD Primary Care Provider [phone] Encounter Details Date Type Department Care Team (Latest Contact Info) Description 01/22/2025 Travel Social History Tobacco Use Types Packs/Day Years [...] Visit [facility] [address] [place] [id number] Hannah Brian MD [address] [place] [address] documented as of this encounter Visit Diagnoses Not on filedocumented in this encounter Care Teams Pharmacy Clerk Relationship Specialty Start Date End Date Isaac Nazario MD [address] [place] [address] PCP - ACO Reach 01/05/23 Hannah Brian MD [address] [place] [address] PCP - General Family Medicine 11/03/23 documented as of this encounter
--- OUTSIDE RECORDS SUMMARY | 2025-01-30 09:59 | XMS_ITS | Clinical Summary ---
Author Organization [facility] Address [address] [facility] [place] [address] Care Team Providers Care Big Data Developer Name Role Phone Isaac Nazario MD Unavailable [phone] Hannah Brian MD Primary Care Provider [phone] Allergies Active Allergy Reactions Criticality Noted Date Comments Amiodarone Nausea And Vomiting 01/30/2024 Amoxicillin Diarrhea 01/30/2023 Aspirin 05/14/2010 Other Reaction(s): Other: See Comments Patient states causes Bruising. Cephalexin GI intolerance 01/30/2023 Egg-Derived Products 01/30/2023 Other Reaction(s): allergy Erythromycin Unknown 01/30/2023 Empagliflozin Angioedema 02/02/2024 Turned hands different colors and not breathing Latex Hives,Rash Low 09/26/2012 Meperidine 05/14/2010 Other Reaction(s): AOF, Other: See Comments, Syncope Patient does not know if she is allergic but know she is not suppose to take it. Meperidine Hcl Unknown 01/30/2023 Morphine 04/12/2023 Other Reaction(s): Unknown cause Sulfa Antibiotics GI intolerance 07/24/2023 Valsartan 10/16/2023 Wheat 01/30/2023 Other Reaction(s): allergy Wheat Dextrin 02/09/2023 Other Reaction(s): allergy Medications Eliquis 5 MG tablet Take 5 mg by mouth in the morning and 5 mg before bedtime. 3 Active Lipitor 40 MG tablet Take 40 mg by mouth Daily 3 Active spironolactone (Aldactone) 25 MG tablet Take 12.5 mg by mouth in the morning and 12.5 mg before bedtime. Active ondansetron ODT (Zofran-ODT) 4 MG disintegrating tabletIndications: Gastroesophageal reflux disease with esophagitis, unspecified whether hemorrhage Take 1 tablet (4 mg) by mouth every 8 (eight) hours if needed for vomiting or nausea 20 tablet 4 Active famotidine (Pepcid) 40 MG tabletIndications: Gastroesophageal reflux disease without esophagitis Take 1 tablet (40 mg) by mouth at bedtime 30 tablet 11 4 025 Active prednisoLONE acetate (Pred-Forte) 1 % ophthalmic suspension 4 Active carvedilol (Coreg) 3.125 MG tablet Take 3.125 mg by mouth in the morning and 3.125 mg in the evening. Take with meals. 5 Active neomycin-polymyxin -dexAMETHasone (Maxitrol) 3.5-20126-9.1 ophthalmic suspension 5 Active LORazepam (Ativan) 0.5 MG tabletIndications: Anxiety Take 1 tablet (0.5 mg) by mouth every 8 (eight) hours if needed for anxiety 90 tablet 5 Active carvedilol (Coreg) 6.25 MG tablet 4 025 Discontin ued(Thera py completed ) LORazepam (Ativan) 0.5 MG tabletIndications: Anxiety TAKE 1 TABLET BY MOUTH EVERY 8 HOURS NEEDED FOR ANXIETY 90 tablet 5 025 Discontin ued(Reord er) LORazepam (Ativan) 0.5 MG tabletIndications: Anxiety Take 1 tablet (0.5 mg) by mouth every 8 (eight) hours if needed for anxiety 90 tablet 5 025 Discontin ued(Reord er) Active Problems Problem Noted Date Diagnosed Date 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 4 Severe protein-calorie malnutrition (HHS-HCC) Atrial fibrillation, persistent 08/27/2023 Primary hypertension 08/27/2023 Cardiomyopathy, nonischemic 08/26/2023 Mitral valve regurgitation due to cardiomyopathy 08/24/2023 Nonrheumatic tricuspid valve regurgitation 07/25 Atrophic vaginitis 07/24/2023 Renal lesion 07/24/2023 Urethral stricture 07/24/2023 Acid reflux 04/12/2023 Cystocele with prolapse 04/12/2023 Former smoker 04/12/2023 History of urethral stricture 04/12/2023 Nocturia 04/12/2023 Other urethral stricture, female 04/12/2023 Poor urinary stream 04/12/2023 Stranguria 04/12/2023 Anxiety 01/30/2023 Chronic fatigue syndrome 01/30/2023 Panic attack 01/30/2023 Assessment & Plan (10/08/2024 2:39 PM EST): Stable Patient will return in [address] Brian to refill meds Encouraged watching diet and restart exercising Seasonal allergies 01/30/2023 Status post hysterectomy 01/30/2023 Stricture and atresia of vagina 01/30/2023 Transient insomnia 01/30/2023 Atherosclerosis of aorta 02/21/2018 Incomplete bladder emptying 09/26/2012 Intestinal obstruction 03/13/2009 Resolved Problems Problem Noted Date Diagnosed Date Resolved Date Acute gastroenteritis 04/12/20232023 Dysuria 04/12/2023 11/09/2023 Feeling of incomplete bladder emptying 04/12/2023 11/09/2023 Injury of nose 04/12/2023 11/09/2023 Weak urine stream 04/12/2023 11/09/2023 Superficial laceration of face 04/12/2023 11/09/2023 Suprapubic pain 04/12/2023 11/09/2023 Urinary frequency 04/12/2023 11/09/2023 Urinary hesitancy 04/12/2023 11/09/2023 Urinary urgency 04/12/2023 11/09/2023 Aortic atherosclerosis 01/30/202311/08 Panic disorder 01/30/2023 01/09/2024 Encounters Date Type Department Care Team Description 01/28/2025 Patient Outreach [facility] [address] 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 [address] MahlJarredmy, SQUADRON WORKER 01/20/2025 Patient Outreach [place] [address] [place] [address] Mahl Loida, SQUADRON WORKER 01/16/2025 Patient Outreach [place] [address] [place] [address] Sana Lei, SQUADRON WORKER 01/13/2025 Patient Outreach [place] [address] [place] [address] [facility] SQUADRON WORKER 01/13/2025 Refill [facility] [address] [place] [address] Wilson, Alisha Anxiety 01/10/2025 Patient Outreach [place] [address] [place] [address] [facility] SQUADRON WORKER 01/07/2025 3:20 PM EDT Office Visit [facility] [address] [place] [address] Hannah Brian MD Atrial fibrillation, persistent (HCC) (Primary Dx); [facility] 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; Primary hypertension ; Anxiety; Panic attack 01/07/2025 Bamboo flowsheet [facility] [address] [place] [address] Hannah Brian MD 01/07/2025 Travel 12/19/2024 Results Follow-Up [facility] [place] [address] [place] [address] Hannah Brian MD 12/17/2024 3:20 PM EDT Office Visit [place] [address] [place] [address] Hannah Brian MD Hematuria, unspecified type (Primary Dx); Right flank pain; Dysuria; Urinary frequency 12/17/2024 Bamboo flowsheet [place] [address] [place] [address] Hannah Brian MD 12/17/2024 Travel 12/16/2024 Refill [facility]NOTE 3] [address] 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; Atrial fibrillation, persistent (HCC); Primary hypertension ; Cardiomyopathy, unspecified (HCC) 11/25/2024 Bamboo flowsheet [place] [address] [place] [address] Hannah Brian MD 11/25/2024 Travel 11/18/2024 11:40 AM EDT Office Visit [place] [address] [place] [address] Hannah Brian MD Acute cough (Primary Dx); Hematuria, unspecified type; [facility] 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; Atrial fibrillation, persistent (HCC); Primary hypertension 11/18/2024 External Result Encounter [facility] External Department Unsolicited Hannah Brian MD 11/18/2024 Travel 11/18/2024 Patient Outreach [facility]NOTE 3] [address] [place] [address] Loida Nathan LPN 11/15/2024 Refill [facility]NOTE 3] [address] [place] [address] Hannah Brian MD Anxiety from Last 3 Months Immunizations Immunization Administration Dates Next Due DT (pediatric) 12/30/2004 DTP 12/14/2009 Td (adult), 5 Lf tetanus tox oid, preservative free, adsorbed 02/16/2016 Tdap 01/29/2018 Family History Medical History Relation Name Comments Heart disease Father Diabetes Mother Heart disease Mother Relation Name Status Comments Father Mother Social History Tobacco Use Types Packs/Day Years Used Date Smoking Tobacco: Former Cigarettes Passive Smoke Exposure: Never Smokeless Tobacco: Never Tobacco Cessation:Counseling Given: Not Answered Alcohol Use Standard Drinks/Week Comments Not Currently [...] on file Sexual Orientation Not on file Last Filed Vital Signs Vital Sign Reading [...] Mass Index 23.91 01/22/2025 1:56 PM EDT Plan of Treatment Upcoming Encounters Date Type Department Care Team (Late st Contact Info) Description 04/09/2025 3:20 PM EDT Office Visit [facility] [address] [place] [address] Hannah Brian MD [address] [place] [address] Health Maintenance Due Date Last Done Comments Pneumococcal Vaccine: 65+ Ye ars (1 of 2 - PCV) 1969 Colonoscopy Discontinued 02/15/2018, 02/15/2018 Colorectal Cancer Screening Discontinued Mammogram Discontinued 12/05/2022, 02/0 01/2023, 08/03/2020, Additional history exists CT Colonography Discontinued FIT-DNA Discontinued FIT Discontinued FOBT Discontinued Influenza Vaccine Discontinued Sigmoidoscopy Discontinued Procedures Procedure Name Priority Date/Time Associated Diagnosis Comments URINE CULTURE CLEAN CATCH REFLEX Routine 12/17/2024 3:54 PM EDT CULTURE, URINE, ROUTINE Routine 12/17/2024 3:54 PM EDT Right flank pain Dysuria Urinary frequency POCT URINALYSIS DIPSTICK Routine 12/17/2024 3:49 PM EDT Right flank pain Dysuria Urinary frequency CULTURE, URINE, ROUTINE Routine 11/18/2024 1:25 PM EDT POCT URINALYSIS DIPSTICK Routine 11/18/2024 11:52 AM EDT Hematuria, unspecified type BI MAMMOGRAM SCREENING TOMOSYNTHESIS BILATERAL Routine 12/05/2022 Encounter for screening mammogram for malignant neoplasm of breast COLONOSCOPY Routine 02/15/2018 12:00 PM EDT from Last 3 Months or Most Recently Relevant to Health Maintenance Results * Urine Culture Clean Catch Reflex (12/17/2024 3:54 PM EDT) Ur Cult 1 Comment [facility] Comment: Mixed urogenital taylor 10,000-25,000 colony forming units per mL 12/17/2024 3:54 PM EDT 12/17/2024 Narrative [facility] - 12/19/2024 8:35 AM EDT Performed at: [facility] [id number] E Commerce Specialist: Evelio Diaz PhD, Phone: [phone] us Hannah Brian MD LAB URINE ORDERABLES Final Re sult Performing Organization Address [facility] [[email or web address]] de Phone Number [facility] * Urine culture (12/17/2024 3:54 PM EDT) Only the most recent of2 resultswithin the time period is included. Urine Cult Rt Status Final report [facility] Urine Urine specimen obtained by clean catch procedure / Unknown 12/17/2024 3:54 PM EDT 12/17/2024 Comment:BETTIE Chisholm [facility] - 12/19/2024 8:35 AM EDT Performed at: [address] [id number] E Commerce Specialist: Evelio Diaz PhD, Phone: [phone] us Hannah Brian MD LAB MICROBIOLOGY - GENERAL OR DERABLES Final Result Performing Organization Address [facility] [[email or web address]] de Phone Number [facility] * (ABNORMAL) POCT Urinalysis dipstick (12/17/2024 3:49 PM EDT) Only the most recent of2 resultswithin the time period is included. Color, UA Yellow Clarity, UA Clear Glucose, UA Negative Negative - 1999(110) ++++ mg/dL Bilirubin, UA Negative Negative - 4(70) +++ mg/dL Ketones, UA Negative Negative - 160(16) ++++ mg/dL Spec Grav, UA 1.005 1 - 1.03 Blood, UA Positive Negative - 50 Pedro/mcL pH, UA 6.0 5 - 9 Protein, UA Negative Negative - 1999(20) ++++ mg/dL Urobilinogen, UA 0.2 0.2 - 12 mg/dL Leukocytes, UA Negative Negative - 500+++ Ghislaine/mcL Nitrite, UA Negative Negative - Positive Urine 12/17/2024 3:49 PM EDT us Hannah Brian MD POINT OF CARE TEST ENTER/EDIT ORDERABLES Final Result * Bilateral screening mammogram with tomosynthesis (12/05/2022) Anatomical Region Laterality Modality Breast Bilateral Mammography Narrative 12/05/2022 12:00 AM EDT PERFORMED AT [facility] LOCATION:[place] [address] Exam Date/Time: 12/05/2022 15:01 EDT Reason for Exam: Z12.31 Report IMPRESSION: BIRADS 2 BENIGN FINDINGS NORMAL INTERVAL FOLLOW-UP.12 MONTH RECALL. CLINICAL HISTORY: Z12.. COMPARISON: 09/14/2021. COMMENT: Routine views and tomosynthesis views of both breasts were obtained. The breasts are heterogeneously dense which may obscure small masses. There is minimal postsurgical architectural distortion in the left breast. No dominant breast mass nor neoplastic calcifications are noted. There has been no significant change when compared to the prior exam. The examination was reviewed with Computer Aided Detection. Breast Density: Yes Mammography is very important to your health. The current [employer] and National Comprehensive Cancer Network guidelines recommends annual mammography beginning at age 40. This facility utilizes a reminder system to ensure all patients receive reminder notifications at the appropriate time based on the recommendations of this exam. Board Certified Radiologists. Accredited by the ACR and FDA. Ordering Provider: Aravind Gray FINAL REPORT Dictated: 12/06/2022 4:48 pm Jenifer Don Signed (Electronic Signature): 12/06/2022 4:48 pm Signed by: Jenifer Don Transcribed by: ARAVIND Technologist: VIANCA Assessment: BI-RADS Category 2-Benign finding Recommendation: Normal interval follow-up Procedure Note CONVERSION, GENERIC - 02/17/2023 PERFORMED AT [facility] LOCATION:[place] [address] Exam Date/Time: 12/05/2022 15:01 EDT Reason for Exam: Z12.31 Report IMPRESSION: BIRADS 2 BENIGN FINDINGS NORMAL INTERVAL FOLLOW-UP.12 MONTH RECALL. CLINICAL HISTORY: Z12.31. COMPARISON: 09/14/2021. COMMENT: Routine views and tomosynthesis views of both breasts wereobtained. The breasts are heterogeneously dense which may obscure small masses. There is minimal postsurgical architectural distortion in the left breast. No dominantbreast mass nor neoplastic calcifications are noted. There has been no significant changewhen compared to the prior exam. The examination was reviewed with Computer Aided Detection. Breast Density: Yes Mammography is very important to your health. The current [employer] and National Comprehensive Cancer Network guidelines recommendsannual mammography beginning at age 40. This facility utilizes a reminder system to ensure all patients receivereminder notifications at the appropriate time based on the recommendations of thisexam. Board Certified Radiologists. Accredited by the ACR and FDA. Ordering Provider: Aravind Gray FINAL REPORT Dictated: 12/06/2022 4:48 pm Jenifer Don Signed (Electronic Signature): 12/06/2022 4:48 pm Signed by: Jenifer Don Transcribed by: ARAVIND Technologist: VIANCA Assessment: BI-RADS Category 2-Benign finding Recommendation: Normal interval follow-up Isaac Nazario MD IMG BI PROCEDURES Final Result * Colonoscopy (02/15/2018 12:00 PM EDT) Anatomical Region Laterality Modality Endoscopy 02/15/2018 12:0 0 PM EDT Narrative 02/15/2018 12:00 PM EDT PERFORMED AT [facility] LOCATION:[id number] Procedure Note CONVERSION, GENERIC - 12/28/2022 PERFORMED AT [facility] LOCATION:[id number] us Isaac Nazario MD ENDOSCOPY PROCEDURE ORDERABLES Final Result from Last 3 Months or Most Recently Relevant to Health Maintenance Insurance MEDICARE [facility] Care Teams Big Data Developer Relationship Specialty Start Date End Date Isaac Nazario MD [address] [place] [address] PCP - ACO Reach 01/05/23 Hannah Brian MD [address] [place] [address] PCP - General Family Medicine 11/03/23
--- OUTSIDE RECORDS SUMMARY | 2025-01-30 09:59 | XMS_ITS | Encounter Summary ---
Author Organization [facility] Address [address] [place] [address] Care Team Providers Care Minister Of Religion Name Role Phone Isaac Nazario MD Unavailable [phone] Hannah Brian MD Primary Care Provider [phone] Encounter Details Date Type Department Care Team (Late st Contact Info) Description 01/20/[address] [facility] [address] [place] [address] Loida Nathan LPN [address] [place] [address] Social History Tobacco Use Types Packs/Day Years [...] Progress Notes * Loida Nathan LPN - 01/20/2025 1:45 PM EDT Images from the original note were not included. Pt to [facility] ER for anxiety and palpitations. Recent Mitral Valve/pacemaker surgery. All testing negative and no medication changes made. Call to pt and she states that she is ok but weak. She is worried because they decreased her Carvedilol at last hospital stay to 3.125 BID. She states that she has a FU visit 01/23/25 and I advised her that they will clarify then. Attempted to reconcile medications but unable to complete with pt. DEREK completed. She FU OV Dr Brian. Flowsheet Row Patient Outreach from 01/20/2025 in [facility] with Loida Nathan LPN Hospital Information ED, Hospital or Nursing Home Facility Discharge? ED Diagnosis Palpitations Discharge Date 01/19/25 Discharged To: Home Setting Discharge Hospital [facility] Engagement Admission Date 01/19/25 Medications Discharge medications reviewed and reconciled from hospital? Yes Is the patient having any side effects they believe may be caused by any medication additions or changes? No Does the patient have all medications ordered at discharge? Yes Nursing Interventions Nurse provided patient education Prescription Comments No medication changes Is the patient taking all medications as directed (includes completed medication regime)? Yes Nursing Interventions Nurse provided patient education Appointments Does the patient have a primary care provider? Yes Nursing Interventions Verified appointment date/time/provider [01/22/25 Dr Brian] Does the patient have any upcoming specialty appointments? Yes Nursing Interventions Advised patient to keep appointment Self Management Does patient have home health? no Patient Teaching Does the patient have access to their discharge instructions? Yes Nursing Interventions Reviewed instructions with patient What is the patient's perception of their health status since discharge? Improving Wrap Up Wrap Up Additional Comments EKG, CXR, labs negative. documented in this encounter Plan of Treatment Upcoming Encounters Date Type Department Care Team (Late st Contact Info) Description 04/09/2025 3:20 PM EDT Office Visit [facility] [address] [place] [address] Hannah Brian MD [address] [place] [address] documented as of this encounter Visit Diagnoses Diagnosis Palpitation- Primary Palpitations Anxiety Anxiety state, unspecified documented in this encounter Care Teams Minister Of Religion Relationship Specialty Start Date End Date Isaac Nazario MD [address] [place] [address] PCP - ACO Reach 01/05/23 Hannah Brian MD [address] [place] [address] PCP - General Family Medicine 11/03/23 documented as of this encounter
--- OUTSIDE RECORDS SUMMARY | 2025-01-30 09:59 | XMS_ITS | Encounter Summary ---
Author Organization [facility] Address [address] [place] [address] Care Team Providers Care Minister Helper Name Role Phone Isaac Nazario MD Unavailable [phone] Hannah Brian MD Primary Care Provider [phone] Encounter Details Date Type Department Care Team (Late st Contact Info) Description 01/20/2025 Patient Outreach [facility] [address] [place] [address] Loida Nathan LPN [address] [place] [address] Social History Tobacco Use Types Packs/Day Years [...] Notes * Loida Nathan LPN - 01/20/2025 2:11 PM EDT Images from the original note were not included. See ER DEREK for 1st weekly monitor. <January 20, 2025, 14:11 - Loida Nathan LPN> Flowsheet Row Patient Outreach from 01/20/2025 in [facility] with Loida Nathan LPN Was patient contacted successfully? Yes Have you had any urgent care/ED/Hospital visits since discharge? Yes If yes, where did you go? Emergency Room What was the reason? palpitations, anxiety Any medication changes since last contact? No Is the patient taking all medications as directed? Yes Have you visited your PCP since discharge? No, scheduled Have you visited your specialist since discharge? No, scheduled Does patient have home health? no documented in this encounter Plan of Treatment Upcoming Encounters Date Type Department Care Team (Late st Contact Info) Description 04/09/2025 3:20 PM EDT Office Visit [facility] [address] [place] [address] Hannah Brian MD [address] [place] [address] documented as of this encounter Visit Diagnoses Diagnosis Anxiety- Primary Anxiety state, unspecified Palpitation Palpitations documented in this encounter Care Teams Minister Helper Relationship Specialty Start Date End Date Isaac Nazario MD [address] [place] [address] PCP - ACO Reach 01/05/23 Hannah Brian MD [address] [place] [address] PCP - General Family Medicine 11/03/23 documented as of this encounter
--- OUTSIDE RECORDS SUMMARY | 2025-01-30 09:59 | XMS_ITS ---
Author Organization [facility] Address [address] [place] [address] Care Team Providers Care Patient Care Technician Instructor Name Role Phone Isaac Nazario MD Unavailable [phone] Hannah Brian MD Primary Care Provider [phone] Inpatient Discharge Transitional Care Management (TCM) Status:Closed (Closed) Start date:01/15/2025 Enrollment date:01/16/2025 Enrollment reason:Identified using hospital discharge data End date:01/16/2025 Close reason:Moved to 30 Day Monitoring Program Overview Patient discharged from [facility] on 01/15. Please contact for hospital DEREK and schedule follow-up appointment within 7-14 days. Continued Care and Services Coordination
--- OUTSIDE RECORDS SUMMARY | 2025-01-30 09:59 | XMS_ITS | Encounter Summary ---
Author Organization [facility] Address [address] [facility] [place] [address] Care Team Providers Care Sales Representative Education Courses Name Role Phone Isaac Nazario MD Unavailable [phone] Isaac Nazario MD Primary Care Provider [phone] Hannah Brian MD Primary Care Provider [phone] Encounter Details Date Type Department Care Team (Late Contact Info) Description 08/23/2023 Clinisync Result Encounter [facility] External Department Unsolicited Provider, Generic External Data Social History Tobacco Use Types Packs/Day Years Used Date Smoking Tobacco: Former Cigarettes Passive Smoke Exposure: Never Smokeless Tobacco: Never Alcohol Use Standard Drinks/Week Comments Not Currently 0 (1 standard drink = 0.6 oz pur e alcohol) caffeine: 1-2 cups/day AUDIT-C Answer Date Recorded Q1: How often do you have a drink containing alc ohol? Monthly or less 07/21/2023 Q2: How many drinks containi ng alcohol do you have on a typical day when you are drinking? 1 or 2 07/21/2023 Q3: How often do you have si x or more drinks on one occasion? Never 07/21/2023 Comments No Sex and Gender Information Value Date Recorded Sex Assigned at Not on file Legal Sex Female 7:24 PM EDT Gender Identity Not on file Sexual Orientation Not on file documented as of this encounter Plan of Treatment Upcoming Encounters Date Type Department Care Team (Late Contact Info) Description 04/09/2025 3:20 PM EDT Office Visit [facility] [address] [place] [address] Hannah Brian MD [address] [place] [address] documented as of this encounter Procedures Procedure Name Priority Date/Time Associated Diagnosis Comments ECHO 08/23/2023 2:15 PM EST documented in this encounter Results * ECHO (08/23/2023 2:15 PM EST) Anatomical Region Laterality Modality Other 08/23/2023 2:15 PM EST Addenda Addendum by Radiology, Radiologist, on 08/23/2023 5:14 PM EST Echocardiography Report: Transthoracic Echo [facility] J35 Date of service: 08/23/2023 2:15:32 PM FILLER Ordering physician: MICHELINE BARRIGA Indication: Valvular heart disease Technologist: Dede Coker [facility] Interpreting physician: To Brewer MD PATIENT: Name: MRS. ASYA ULLOA : 1950 Age: 73 years Gender: F History of valvular heart disease, cardiomyopathy and arrhythmia. Primary rhythm: atrial fib. Height: 165.10 cm BSA: 1.55 m? Weight: 52.16 kg BMI: 19.1 kg/m? Heart rate 97 bpm Blood pressure 170/65 mmHg Color Doppler was utilized to interrogate the cardiac valves assessed and spectral Doppler was utilized to determine the flow velocities and pressure gradients reported in this exam. MEASUREMENTS: Value Indexed Normal Max aortic dimension 2.8 cm Ao < 3.8 Left atrial volume 57 ml (4ch A-L) 37 ml/m? Daylin <= 34 LV ID (diastole) 5.4 cm (2D) 3.48 cm/m? LV ID (systole) 4.3 cm (2D) 2.75 cm/m? IVS, leaflet tips 1.0 cm (2D) Posterior wall thickness 0.9 cm (2D) Left ventricular mass 194 g (2D) 126 g/m? Ejection Fraction 45 % (visual est.) EF [...] * Final (Updated) * * * CC [facility] [facility] : [id number]^[employer]^SI^PATRICE D Narrative 08/23/2023 4:55 PM EST Echocardiography Report: Transthoracic Echo [facility] J35 Date of service: 08/23/2023 2:15:32 PM FILLER Ordering physician: MICHELINE BARRIGA Indication: Valvular heart disease Technologist: Dede Coker [facility] Interpreting physician: To Brewer MD PATIENT: Name: MRS. ASYA ULLOA : 1950 Age: 73 years Gender: F History of valvular heart disease, cardiomyopathy and arrhythmia. Primary rhythm: atrial fib. Height: 165.10 cm BSA: 1.55 m? Weight: 52.16 kg BMI: 19.1 kg/m? Heart rate 97 bpm Blood pressure 170/65 mmHg Color Doppler was utilized to interrogate the cardiac valves assessed and spectral Doppler was utilized to determine the flow velocities and pressure gradients reported in this exam. MEASUREMENTS: Value Indexed Normal Max aortic dimension 2.8 cm Ao < 3.8 Left atrial volume 57 ml (4ch A-L) 37 ml/m? Daylin <= 34 LV ID (diastole) 5.4 cm (2D) 3.48 cm/m? LV ID (systole) 4.3 cm (2D) 2.75 cm/m? IVS, leaflet tips 1.0 cm (2D) Posterior wall thickness 0.9 cm (2D) Left ventricular mass 194 g (2D) 126 g/m? Ejection Fraction 45 % (visual est.) EF [...] percent with inspiration. MITRAL VALVE There is moderately severe (3+) holosystolic mitral valve regurgitation. There is mild [...] moderately severe (3+) holosystolic mitral valve regurgitation. Best seen in certain views (A3c, clip 66 for instance). Multiple MR jets, PISA estimation is limited. Suboptimal PV flow waveform. MR is better seen and more prominent on outside HAORON 07/21/23. - There is moderately severe (3+) tricuspid valve regurgitation. - Estimated right ventricular systolic pressure is 44 mmHg consistent with mild pulmonary hypertension. Estimated right atrial pressure is 8 mmHg based on IVC assessment. - The patient has not had a prior CC echocardiographic exam for comparison. * * * Final * * * CC [facility] Image : [id number]^[employer]^SI^SUID Procedure Note Radiology, Radiologist, - 08/24/2023 Echocardiography Report: Transthoracic Echo [facility] J35 Date of service: 08/23/2023 2:15:32 PM FILLER Ordering physician: MICHELINE BARRIGA Indication: Valvular heart disease Technologist: Dede Coker [facility] Interpreting physician: To Brewer MD PATIENT: Name: MRS. ASYA ULLOA : 1950 Age: 73 years Gender: F History of valvular heart disease, cardiomyopathy and arrhythmia. Primary rhythm: atrial fib. Height: 165.10 cm BSA: 1.55 m? Weight: 52.16 kg BMI: 19.1 kg/m? Heart rate 97 bpm Blood pressure 170/65 mmHg Color Doppler was utilized to interrogate the cardiac valves assessed andspectral Doppler was utilized to determine the flow velocities andpressure gradients reported in this exam. MEASUREMENTS: Value Indexed Normal Max aortic dimension 2.8 cm Ao < 3.8 Left atrial volume 57 ml (4ch A-L) 37 ml/m? Daylin <= 34 LV ID (diastole) 5.4 cm (2D) 3.48 cm/m? LV ID (systole) 4.3 cm (2D) 2.75 cm/m? IVS, leaflet tips 1.0 cm (2D) Posterior wall thickness 0.9 cm (2D) Left ventricular mass 194 g (2D) 126 g/m? Ejection Fraction 45 % (visual est.) EF > 54 FINDINGS: LEFT VENTRICLE The left ventricle is dilated. Left ventricular systolic function is mildly decreased. Left ventricular diastolic function was not evaluated due to anarrhythmia. Wall Motion: The basal inferoseptal segment is akinetic. The anterolateral wall,posterior wall, basal anteroseptal segment, and basal inferior segment areseverely hypokinetic. The entire anterior wall, mid and distal anteriorseptum, entire apex, mid and distal inferior wall, and mid inferoseptalsegment are mildly hypokinetic. RIGHT VENTRICLE The right ventricle is normal in size. Right ventricular systolic function is normal. Tricuspid annulardisplacement is 2.3 cm. Estimated right ventricular systolic pressure is 44 mmHg consistent withmild pulmonary hypertension. Estimated right atrial pressure is 8 mmHgbased on IVC assessment. LEFT ATRIUM The left atrial cavity is mildly dilated. RIGHT ATRIUM The right atrial cavity is dilated. Inferior Vena Cava: The inferior vena cava appears normal measuring 2.0 cm. The vesseldecreases less than 50 percent with inspiration. MITRAL VALVE There is moderately severe (3+) holosystolic mitral valve regurgitation.There is mild thickening. TRICUSPID VALVE There is moderately severe (3+) tricuspid valve regurgitation. There is nothickening. AORTIC VALVE There is trace aortic valve regurgitation. Tricuspid aortic valve. Thereis mild thickening. PULMONIC VALVE The pulmonic valve cusps are structurally normal. There is trace (trace -1+) pulmonic valve regurgitation. AORTA The visualized aorta is normal in size. Measurements - Mid ascending aorta 2.8 cm. PULMONARY ARTERIES The pulmonary arteries are normal. INTERATRIAL SEPTUM There is no evidence of intracardiac shunting as detected by Doppler. INTERVENTRICULAR SEPTUM There is no flow through the interventricular septum as detected byDoppler. PERICARDIUM There is a trivial circumferential pericardial effusion. There is anepicardial fat pad. CONCLUSIONS: - Exam indication: Valvular heart disease - The left ventricle is dilated. Left ventricular systolic function ismildly decreased. EF = 45 ? 5% (visual est.) Beat to beat variation in LVsystolic function. - The right ventricle is normal in size. Right ventricular systolicfunction is normal. - The left atrial cavity is mildly dilated. - The right atrial cavity is dilated. - There is moderately severe (3+) holosystolic mitral valve regurgitation.Best seen in certain views (A3c, clip 66 for instance). Multiple MR jets,PISA estimation is limited. Suboptimal PV flow waveform. MR is better seenand more prominent on outside [place]OON 07/21/23. - There is moderately severe (3+) tricuspid valve regurgitation. - Estimated right ventricular systolic pressure is 44 mmHg consistent withmild pulmonary hypertension. Estimated right atrial pressure is 8 mmHgbased on IVC assessment. - The patient has not had a prior CC echocardiographic exam forcomparison. * * * Final * * * CC [employer] Image :[id number]^[employer]^SI^SUID us Generic External Data Provider [facility] Edited Result - Final documented in this encounter Visit Diagnoses Not on filedocumented in this encounter Care Teams Sales Representative Education Courses Relationship Specialty Start Date End Date Isaac Nazario MD [address] [place] [address] PCP - ACO Reach 01/05/23 Isaac Nazario MD [address] [place] [address] PCP - General Family Medicine 02/08/23 11/02/23 Hannah Brian MD [address] [place] [address] PCP - General Family Medicine 11/03/23 documented as of this encounter
--- OUTSIDE RECORDS SUMMARY | 2025-01-30 10:00 | XMS_ITS | Clinical Summary ---
Author Organization [facility] Address [address] [place] [address] Care Team Providers Care Olive Packer Name Role Phone Hannah Brian MD Primary Care Provider [phone] Allergies Active Allergy Reactions Criticality Noted Date Comments Amiodarone Nausea And Vomiting 01/30/2024 Amoxicillin Diarrhea 01/30/2023 Cephalexin GI intolerance,Nause a And Vomiting,Unknown 01/30/2023 Meperidine Shortness of breath High 01/09/2025 Egg Derived 01/30/2023 Other Reaction(s): allergy Empagliflozin Angioedema 02/02/2024 Mounjaro Turned hands different colors and not breathing Erythromycin GI intolerance 01/30/2023 Morphine Unknown 04/12/2023 Sulfa (Sulfonamide Antibiotics) GI intolerance,Other 07/24/2023 Valsartan 10/16/2023 Wheat Bran 01/30/2023 Other Reaction(s): allergy Medications LORazepam (Ativan) 0.5 mg tablet Take 1 mg by mouth three times daily. 3 Active atorvastatin (Lipitor) 40 mg tabletIndication s:HFrEF (heart failure with reduced ejection fraction) (CMS/HCC) Take 1 tablet (40 mg) by mouth in the evening. Do not take at bedtime 90 tablet 3 5 08/20/19 26 Active spironolactone (Aldactone) 25 mg tabletIndication s:HFrEF (heart failure with reduced ejection fraction) (CMS/HCC) Take 0.5 tablets (12.5 mg) by mouth once daily as directed. 45 tablet 3 5 08/20/19 26 Active apixaban (Eliquis) 5 mg tabletIndication s:Paroxysmal atrial fibrillation (CMS/HCC) Take 1 tablet (5 mg) by mouth two times daily. 180 tablet 3 5 12/27/19 26 Active carvedilol (Coreg) 3.125 mg tabletIndication s:Primary hypertension Take 1 tablet (3.125 mg) by mouth with breakfast and with evening meal. 60 tablet 2 5 04/15/20 25 Active carvedilol (Coreg) 6.25 mg tabletIndication s:Persistent atrial fibrillation (CMS/HCC) Take 1 tablet (6.25 mg) by mouth with breakfast and with evening meal. To be taken with a 3.125 tablet for a total of 9.375 mg twice daily 180 tablet 3 5 01/16/20 25 Discontin ued(Stop Taking at Discharge ) carvedilol (Coreg) 3.125 mg tabletIndication s:Paroxysmal atrial fibrillation (CMS/HCC) Take 1 tablet (3.125 mg) by mouth with breakfast and with evening meal. To be taken with a 6.25 tablet for a total of 9.375 twice daily 180 tablet 3 5 01/16/20 25 Discontin ued(Stop Taking at Discharge ) Active Problems Problem Noted Date Diagnosed Date S/P mitral valve repair 01/28/2025 Severe mitral regurgitation 01/14/2025 Nonrheumatic mitral valve regurgitation 01/09/20 25 Presence of biventricular au tomatic cardioverter/defibrillator (AICD) 03/06/2024 Assessment & Plan (03/06/2024 3:22 PM EDT): Wound check today healing well without s/s of infection 1 month wound check and device interrogation and then q 6 month interrogation Paroxysmal atrial fibrillation 02/13/2024 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 NYHA Class II. Continue current treatment regimen. Dietary sodium restriction. Encouraged daily monitoring of the patient's weight. Continue current medications. Heart failure will be reassessed in 3 months. Non-rheumatic mitral regurgitation 07/25/2023 10/10/2023 Nonrheumatic tricuspid valve regurgitation 07/2510/10/2023 Atrophic vaginitis 07/24/2023 10/10/2023 Renal lesion 07/24/2023 10/10/2023 Acid reflux 04/12/2023 10/10/2023 Acute gastroenteritis 04/12/2023 10/10/2023 Cystocele with prolapse 04/12/2023 10/10/19 Dysuria 04/12/2023 10/10/2023 Feeling of incomplete bladder emptying 10/10/2023 Former smoker 04/12/2023 10/10/2023 History of urethral stricture 04/12/2023 Injury of nose 04/12/2023 10/10/2023 Nocturia 04/12/2023 10/10/2023 Poor urinary stream 04/12/2023 10/10/2023 Stranguria 04/12/2023 10/10/2023 Superficial laceration of face 04/12/2023 0 10/10/2023 Suprapubic pain 04/12/2023 10/10/2023 Urethral stricture 04/12/2023 10/10/2023 Urinary frequency 04/12/2023 10/10/2023 Urinary urgency 04/12/2023 10/10/2023 Anxiety 01/30/2023 10/10/2023 Chronic fatigue syndrome 01/30/2023 024 Panic attack 01/30/2023 10/10/2023 Seasonal allergies 01/30/2023 10/10/2023 Status post hysterectomy 01/30/2023 024 Stricture and atresia of vagina 01/30/2023 10/10/2023 Transient insomnia 01/30/2023 10/10/2023 Atherosclerosis of aorta 02/21/2018 024 Incomplete bladder emptying 09/26/201209/15 Intestinal obstruction 03/13/2009 Encounters Date Type Department Care Team Description 01/24/2025 Telephone [facility] [address] [place] [address] Allison Jefferson MA 01/23/2025 2:40 PM EDT Follow-Up [facility] [address] [place] [address] Niecy Mazariegos CNP Nonrheumatic mitral valve regurgitation (Primary Dx); Severe mitral regurgitation; S/P mitral valve repair; Primary hypertension; Chronic systolic heart failure (CMS/HCC); Nonrheumatic tricuspid valve regurgitation; Paroxysmal atrial fibrillation (CMS/HCC); Presence of biventricular automatic cardioverter/defibril lator (AICD); Cardiac pacemaker in situ 01/15/2025 Telephone [facility] [address] [place] [address] Allison Jefferson MA 01/14/2025 8:31 AM EDT Anesthesia Event [facility] [address] [place] [address] Lobo Machado MD 01/14/2025 8:30 AM EDT - 01/14/2025 10:30 AM EDT Surgery [facility] [address] [place] [address] Rafael Robins MD Transcatheter mitral valve repair [[id number]] 01/14/2025 7:06 AM EDT - 01/15/2025 5:01 PM EDT Hospital Encounter [facility] [address] [place] [address] Rafael Robins MD Severe mitral regurgitation (Primary Dx); Nonrheumatic mitral valve regurgitation; Primary hypertension Discharge Disposition: Home or Self Care (01) 01/14/2025 Travel 01/13/2025 Orders Only [facility] Pre-Anesthesia Clinic [address] [place] [address] Niecy Benito, ROCÍO 01/09/2025 Orders Only [facility] [address] [place] [address] Allison Jefferson MA Status post transcatheter aortic valve replacement 01/09/2025 Travel 01/08/2025 Orders Only [facility] [address] [place] [address] Rafia Roger CNP Nonrheumatic mitral valve regurgitation (Primary Dx) 12/24/2024 Telephone [facility] [address] [place] [address] Allison Jefferson MA 12/23/2024 1:30 PM EDT Office Visit [place] [address] [place] [address] Rafael Robins MD Nonrheumatic mitral valve regurgitation (Primary Dx); Chronic systolic heart failure (CMS/HCC); Nonrheumatic tricuspid valve regurgitation; Coronary artery disease involving [place] coronary artery of [place] heart without angina pectoris; Presence of biventricular automatic cardioverter/defibril lator (AICD); Longstanding persistent atrial fibrillation (CMS/HCC) 12/04/2024 Orders Only [facility] [address] [place] [address] Marco Peguero MD 11/29/2024 6:56 AM EDT - 11/29/2024 11:59 PM EDT Hospital Encounter [facility] [address] [place] [address] Nonrheumatic mitral valve regurgitation Discharge Disposition: Home or Self Care () 11/29/2024 Travel 11/22/2024 Travel 11/22/2024 Telephone [facility] [address] [place] [address] Rocio Underwood, RN from Last 3 Months Immunizations Immunization Administration Dates Next Due DT (pediatric) 12/30/2004 DTP 12/14/2009 Td (adult), 5 Lf tetanus tox oid, preservative free, adsorbed 02/16/2016 Tdap 01/29/2018 Family History Medical History Relation Name Comments Coronary artery disease Father Coronary artery disease Mother Diabetes Mother Relation Name Status Comments Brother Alive Father Mother Sister Social History Tobacco Use Types Packs/Day Years Used Date Smoking Tobacco: Former Cigarettes Passive Smoke Exposure: Past Smokeless Tobacco: Never Tobacco Cessation:Counseling Given: No Passive Exposure Comments:social smoker stopped in 1989 Alcohol Use Standard Drinks/Week Comments Never 0 (1 standard drink = 0.6 oz pur e alcohol) [facility] Utilities Answer Date Recorded In the past 12 months has th e [employer], gas, oil, or water company threatened to shut off services in your [...] any time in the past 12 m [facility], were you homeless or living in a detention (including now)? No 01/14/2025 Hunger Vital Sign [...] Pulse 74 01/23/2025 2:22 PM EDT Temperature 36.5 C (97.7 F) 01/15/2025 4:00 PM EDT Respiratory Rate 18 01/15/2025 3:30 PM EDT Oxygen Saturation 97% 01/23/2025 2:22 PM EDT Inhaled Oxygen Concentration - - Weight 60.8 kg (134 lb) 01/23/2025 2:22 PM EDT Height 165.1 cm (5' 5 ) 01/23/2025 2:22 PM EDT Body Mass Index 22.3 01/23/2025 2:22 PM EDT Plan of Treatment Upcoming Encounters Date Type Department Care Team (Late st Contact Info) Description 02/10/2025 1:45 PM EDT Follow-Up [address] [address] Rafael Robins MD [address] [place] [address] [facility] [place] [address] 02/18/2025 3:45 PM EDT Ancillary Procedure [facility] [address] [place] [address] Health Maintenance Due Date Last Done Comments Medicare Annual Wellness (AWV) 1950 Pneumococcal Vaccine: 50+ Years (1 of 2 - PCV) 1967 Zoster Vaccines (1 of 2) 1998 COVID-19 Vaccine (2023-2 5 season) 2024 Depression Screening 02/21/2025 02/22/2024 Influenza Vaccine (Season Ended) 2025 Fall Risk Screening 01/15/2026 01/15/2025 Adult Tetanus 01/30/2028 01/29/2018, 02/16/2016 Colonoscopy Discontinued 02/15/2018 Colorectal Cancer Screening Discontinued CT Colonography Discontinued FIT-DNA Discontinued FIT Discontinued FOBT Discontinued HIB Vaccines Aged Out No longer eligi ble based on patient's age to complete this topic HPV Vaccines Aged Out No longer eligi ble based on patient's age to complete this topic IPV Vaccines Aged Out No longer eligi ble based on patient's age to complete this topic Meningococcal B Vaccine Aged Out No l onger eligible based on patient's age to complete this topic Meningococcal Vaccine Aged Out No yaw isabella eligible based on patient's age to complete this topic Rotavirus Vaccines Aged Out No longer eligible based on patient's age to complete this topic Sigmoidoscopy Discontinued Medical Devices Implanted Type Area Claim Administrator Device Identifier Shelf Expiration Date Model / Serial / Lot Visionist X4 Is-1/Is4 Implanted:Qty: 1 on 02/28/2024 by Marco Peguero MD at [facility] Device [employer] [id number] 01/25/2026 [id number] / [id number] / System,Mitracl ip,G4,Xtw - [id number] Implanted:Qty: 1 on 01/14/2025 by Rafael Robins MD at [facility] Device N/A: Heart Zscaler [id number] 03/26/2025 [id number] / / [id number] Ingevity+ Is-1 Bi Positive Fix Ra/Rv 52cm Implanted:Qty: 1 on 02/28/2024 by Marco Peguero MD at [facility] Lead [employer] [id number] 01/28/2026 [id number] / [id number] / Lead,Acuity X4,Straight - [id number] - [id number] Implanted:Qty: 1 on 02/28/2024 by Marco Peguero MD at [facility] Lead [employer] [id number] 01/17/2026 [id number] / [id number] / Procedures Procedure Name Priority Date/Time Associated Diagnosis Comments ECG 12-LEAD Routine 01/15/2025 10:54 AM EDT LIMITED ECHO (TTE) W/ LIMITED DOPPLER, COLOR FLOW AND IMAGING AGENT Routine 01/15/2025 9:34 AM EDT BASIC METABOLIC PANEL Pending Discharge 01/15/2025 5:23 AM EDT CBC Pending Discharge 01/15/2025 5:23 AM EDT ECG 12-LEAD Routine 01/14/2025 3:07 PM EDT TRANSESOPHAGEAL ECHO (HAROON) W/ LIMITED DOPPLER AND COLOR FLOW Routine 01/14/2025 11:39 AM EDT Nonrheumatic mitral valve regurgitation POCT ACT Routine 01/14/2025 11:34 AM EDT STRUCTURAL HEART Routine 01/14/2025 11:19 AM EDT Nonrheumatic mitral valve regurgitation POCT ACT Routine 01/14/2025 10:52 AM EDT POCT ACT Routine 01/14/2025 10:16 AM EDT CBC WITH AUTO DIFFERENTIAL Routine 01/14/2025 9:35 AM EDT TYPE AND SCREEN Routine 01/14/2025 9:35 AM EDT BASIC METABOLIC PANEL Routine 01/14/2025 9:35 AM EDT CBC AND DIFFERENTIAL Routine 01/14/2025 9:35 AM EDT POCT HBO2% Routine 01/14/2025 9:32 AM EDT POCT ACT Routine 01/14/2025 9:30 AM EDT ANESTHESIA ARTERIAL LINE PLACEMENT Routine 01/14/2025 9:04 AM EDT FL AN ELECTIVE ENDOTRACHEAL AIRWAY Routine 01/14/2025 8:52 AM EDT POCT GLUCOSE METER UNSOLICITED RESULTS Routine 01/14/2025 7:50 AM EDT PROTIME-INR STAT 01/14/2025 7:50 AM EDT CARDIAC DEVICE CHECK CHECK - REMOTE Routine 12/13/2024 11:53 AM EDT Adjustment and management of cardiac pacemaker CARDIAC DEVICE CHECK - REMOTE - PACEMAKER Routine 12/04/2024 12:00 AM EDT TRANSESOPHAGEAL ECHO (HAROON) W/ LIMITED DOPPLER AND COLOR FLOW Routine 11/29/2024 9:47 AM EDT Nonrheumatic mitral valve regurgitation BASIC METABOLIC PANEL STAT 11/29/2024 7:30 AM EDT CBC STAT 11/29/2024 7:30 AM EDT from Last 3 Months Results * ECG 12 lead (01/15/2025 10:54 AM EDT) Only the most recent of2 resultswithin the time period is included. Ventricular Rate 72 BPM GE MUSE Atrial Rate 55 BPM GE MUSE QRS DURATION 124 ms GE MUSE QT Interval 416 ms GE MUSE QTC CALCULATION(BAZE TT) 455 ms GE MUSE R-[place] 116 degrees GE MUSE T Wave [place] 14 degrees GE MUSE 01/15/2025 10:4 0 AM EDT 01/15/2025 11:15 AM EDT Impressions GE MUSE - 01/15/2025 11:15 AM EDT Ventricular-paced rhythm Biventricular pacemaker detected Abnormal ECG When compared with ECG of 14-JAN-2025 14:56, No significant change was found Confirmed by Pedro MARTINEZ, SHARA Ayoub (57) on 01/15/2025 11:15:42 AM Narrative Procedure Note Shara Martinez MD - 01/15/2025 IMPRESSION: Ventricular-paced rhythm Biventricular pacemaker detected Abnormal ECG When compared with ECG of 14-JAN-2025 14:56, No significant change was found Confirmed by Pedro MARTINEZ, SHARA Ayoub (57) on 01/15/2025 11:15:42 AM us Rafael Robins MD ECG ORDERABLES Final Result GE MUSE * LIMITED ECHO (TTE) W/ LIMITED DOPPLER, COLOR FLOW AND IMAGING AGENT (01/15/2025 9:34 AM EDT) Anatomical Region Laterality Modality Other 01/15/2025 9:13 AM EDT Narrative 01/15/2025 12:08 PM EDT 1 1 [facility] Heart Station [address] [place] [address] [phone] (fax) Echocardiogram-[facility] Name: ASYA ULLOA Study Date: 01/15/2025 09:13 AM B/P: 89 mmHg/71 mmHg HR: 70 bpm Date of : 1950 Location: [facility] Height: 65 in. Age: 74 year(s) Patient Room: 3186 Weight: 138 lb. Gender: Female Patient Status: InPt BSA: 1.69 m2 Indication: Mitral regurgitation, s/p MitralClip XTW Examination: Limited Echo/Limited Doppler, Color flow imaging, 3D images, Lumason Contrast Image Quality: Fair Patient Consent: Procedure explained to patient Exam Details Contrast: I.V. dose of Lumason Conclusions Left Ventricle: The left ventricle is normal [...] with mild eccentric regurgitation and a mean gradient of 3mmHg. Mild mitral regurgitation. Aortic Valve: Mild aortic valve regurgitation. Tricuspid Valve: Moderate to severe tricuspid regurgitation. Overall Conclusions: Due to suboptimal imaging Lumason contrast was administered for opacification and better delineation of endocardial borders. Measurements Left Ventricle Label Value Normal Value LVDd, 2D 4.5 cm (3.9cm - 5.3cm) IVSd, 2D 0.65 cm (0.6cm - 1.1cm) LVPWd, 2D 0.88 cm (0.6cm - 0.9cm) LVEF, BP 51 % (55% - 65%) LV Mass, 2D ASE 107.21 g LV Mass Index, 2D ASE 63.4 g/m?? (44g/m?? - 88.4g/m??) RWT, MM 0.39 (0 - 0.42) Tricuspid Valve Label Value Normal Value TR Vmax 2.43 m/s Great Vessels Label Value Normal Value IVC 1.8 cm (1.2cm - 2.3cm) Valvular Assessment LVOT 0.7 - 1.1 m/sec Aortic Valve 1.0 - 1.7 m/sec Mitral Valve 0.6 - 1.3 m/sec Tricuspid Valve 0.3 - 0.7 m/sec Pulmonic Valve 0.6 - 0.9 m/sec Regurgitation Mild Mild Mod-Sev Max Gradient 7.00 mmHg Mean Gradient 3.00 mmHg Findings Left Ventricle: The left ventricle is normal size. Global left ventricular systolic function is mildly reduced. The calculated Biplane EF is 51 %. EF range is estimated at 45 % -50 %. Left ventricular wall thickness is normal. The septum is abnormal, consistent with RV volume and/or pressure overload. The basal inferoseptal, basal inferior, basal inferolateral, basal anterolateral, mid inferolateral and mid anterolateral left ventricular wall segments are hypokinetic. All remaining scored left ventricular wall segments are with no wall motion abnormalities. Right Ventricle: The right ventricle appears normal in size. Normal right ventricular systolic function. A pacemaker wire is seen in the right atrium and right ventricle. Left Atrium: The left atrium appears enlarged. Right Atrium: The right atrium is severely enlarged. Mitral Valve: Well seated mitral clip with mild eccentric regurgitation and a mean gradient of 3mmHg. Mild mitral regurgitation. Mitral Valve Measurements MV Vmax: 1.36 m/s. MV Vmean: 0.70 m/s. MV PGmax: 7.00 mmHg. MV PGmean: 3.00 mmHg. Aortic Valve: Focal aortic cusp thickening is noted. Mild aortic valve regurgitation. Tricuspid Valve: Moderate to severe tricuspid regurgitation. Great Vessels: IVC: The IVC is normal in size. Respiratory inspiration greater than 50%. Pericardium: No pericardial effusion. Procedure Staff Reading Group: [facility] Operator: NETTIE Meeks, RDCS Ordering Physician: Rafael Robins MD Wall Motion Scores -1 - hyperkinesia, 0 - not evaluated, 1 - normal, 2 - hypokinesia, 3 - akinesia, 4 - dyskinesia Procedure Note Shara Martinez MD - 01/15/2025 1 1 [facility] Heart Station [address] [place], [place] [id number] (fax) Echocardiogram-[facility] Name: ASYA ULLOA Study Date: 01/15/2025 09:13 AM B/P: 89 mmHg/71 mmHg HR: 70 bpm Date of : 1950 Location: [facility] Height: 65 in. Age: 74 year(s) Patient Room: 3186 Weight: 138 lb. Gender: Female Patient Status: InPt BSA: 1.69 m2 Indication: Mitral regurgitation, s/p MitralClip XTW Examination: Limited Echo/Limited Doppler, Color flow imaging, 3D images, Lumason Contrast Image Quality: Fair Patient Consent: Procedure explained to patient Exam Details Contrast: I.V. dose of Lumason Conclusions Left Ventricle: The left ventricle is normal [...] with mild eccentric regurgitation and a mean gradient of 3mmHg. Mild mitral regurgitation. Aortic Valve: Mild aortic valve regurgitation. Tricuspid Valve: Moderate to severe tricuspid regurgitation. Overall Conclusions: Due to suboptimal imaging Lumason contrast was administered for opacification and better delineation of endocardial borders. Measurements Left Ventricle Label Value Normal Value LVDd, 2D 4.5 cm (3.9cm - 5.3cm) IVSd, 2D 0.65 cm (0.6cm - 1.1cm) LVPWd, 2D 0.88 cm (0.6cm - 0.9cm) LVEF, BP 51 % (55% - 65%) LV Mass, 2D ASE 107.21 g LV Mass Index, 2D ASE 63.4 g/m?? (44g/m?? - 88.4g/m??) RWT, MM 0.39 (0 - 0.42) Tricuspid Valve Label Value Normal Value TR Vmax 2.43 m/s Great Vessels Label Value Normal Value IVC 1.8 cm (1.2cm - 2.3cm) Valvular Assessment LVOT 0.7 - 1.1 m/sec Aortic Valve 1.0 - 1.7 m/sec Mitral Valve 0.6 - 1.3 m/sec Tricuspid Valve 0.3 - 0.7 m/sec Pulmonic Valve 0.6 - 0.9 m/sec Regurgitation Mild Mild Mod-Sev Max Gradient 7.00 mmHg Mean Gradient 3.00 mmHg Findings Left Ventricle: The left ventricle is normal size. Global left ventricular systolic function is mildly reduced. The calculated Biplane EF is 51 %. EF range is estimated at 45 % -50 %. Left ventricular wall thickness is normal. The septum is abnormal, consistent with RV volume and/or pressure overload. The basal inferoseptal, basal inferior, basal inferolateral, basal anterolateral, mid inferolateral and mid anterolateral left ventricular wall segments are hypokinetic. All remaining scored left ventricular wall segments are with no wall motion abnormalities. Right Ventricle: The right ventricle appears normal in size. Normal right ventricular systolic function. A pacemaker wire is seen in the right atrium and right ventricle. Left Atrium: The left atrium appears enlarged. Right Atrium: The right atrium is severely enlarged. Mitral Valve: Well seated mitral clip with mild eccentric regurgitation and a mean gradient of 3mmHg. Mild mitral regurgitation. Mitral Valve Measurements MV Vmax: 1.36 m/s. MV Vmean: 0.70 m/s. MV PGmax: 7.00 mmHg. MV PGmean: 3.00 mmHg. Aortic Valve: Focal aortic cusp thickening is noted. Mild aortic valve regurgitation. Tricuspid Valve: Moderate to severe tricuspid regurgitation. Great Vessels: IVC: The IVC is normal in size. Respiratory inspiration greater than 50%. Pericardium: No pericardial effusion. Procedure Staff Reading Group: [facility] Operator: Kim Rodrigues BS, RDCS Ordering Physician: Rafael Robins MD Wall Motion Scores -1 - hyperkinesia, 0 - not evaluated, 1 - normal, 2 - hypokinesia, 3 - akinesia, 4 - dyskinesia us Rafael Robins MD CV ECHO PROCEDURES Final Res ult * (ABNORMAL) CBC (01/15/2025 5:23 AM EDT) Only the most recent of2 resultswithin the time period is included. Auto WBC 12.19(H) 4.00 - 10.60 10*3/uL 01/15/2025 6:09 AM EDT [facility] ([facility]) RBC 4.48 3.80 - 5.00 10*6/uL 01/15/2025 6:09 AM EDT [facility] ([facility]) Hemoglobin 13.6 12.0 - 15.0 g/dL 01/15/2025 6:09 AM EDT [facility] ([facility]) Hematocrit 45.2(H) 36.0 - 45.0 % 01/15/2025 6:09 AM EDT [facility] ([facility]) MCV 100.9(H) 82.0 - 98.0 fL 01/15/2025 6:09 AM EDT [facility] ([facility]) MCH 30.4 27.0 - 33.0 pg 01/15/2025 6:09 AM EDT [facility] ([facility]) MCHC 30.1(L) 32.0 - 35.0 g/dL 01/15/2025 6:09 AM T [facility] ([facility]) RDW 13.4 11.5 - 15.0 % 01/15/2025 6:09 AM EDT [facility] ([facility]) Platelets 176 150 - 400 10*3/uL 01/15/2025 6:09 AM EDT [facility] ([facility]) Blood Venous blood specimen / Unknown Venipuncture / Unknown 01/15/2025 5:23 AM EDT 01/15/2025 5:32 AM EDT us Rafia Roger CYBER OPERATOR LAB BLOOD ORDERABLES Final Re sult [facility] ([facility]) [address], [place] [id number] * (ABNORMAL) Basic metabolic panel (01/15/2025 5:23 AM EDT) Only the most recent of3 resultswithin the time period is included. Sodium 133(L) 136 - 145 mmol/L 01/15/2025 5:55 AM EDT [facility] ([facility]) Potassium 4.7 3.5 - 5.1 mmol/L 01/15/2025 5:55 AM EDT [facility] ([facility]) Chloride 106 98 - 107 mmol/L 01/15/2025 5:55 AM EDT [facility] ([facility]) CO2 19(L) 21 - 31 mmol/L 01/15/2025 5:55 AM EDT [facility] ([facility]) BUN 16 7 - 25 mg/dL 01/15/2025 5:55 AM EDT [facility] ([facility]) Creatinine 0.84 0.60 - 1.20 mg/dL 01/15/2025 5:55 AM EDT [facility] ([facility]) Glucose 123(H) 70 - 100 mg/dL 01/15/2025 5:55 AM EDT [facility] ([facility]) Calcium 8.3(L) 8.6 - 10.3 mg/dL 01/15/2025 5:55 AM EDT [facility] ([facility]) Anion Gap 13 7 - 20 mmol/L 01/15/2025 5:55 AM EDT [facility] ([facility]) eGFR 72.0 >60.0 mL/min/1. 73m*2 01/15/2025 5:55 AM EDT [facility] HECTOR) Comment:[facility] s estimated glomerular filtration rate (eGFR) will no longer include consideration of race in its calculation. The [employer] s eGFR Task Force developed new recommendations for [...] disproportionately affect any one group of individuals. BUN/Creatinine Ratio 19.0 11/2024 5:55 AM EDT [facility] ([facility]) Blood Venous blood specimen / Unknown Venipuncture / Unknown 01/15/2025 5:23 AM EDT 01/15/2025 5:31 AM EDT Rafia Roger [facility] BLOOD ORDERABLES Final Re sult [facility] HECTOR) [address] [place] [address] * TRANSESOPHAGEAL ECHO (HAROON) W/ LIMITED DOPPLER AND COLOR FLOW (01/14/2025 11:39 AM EDT) Anatomical Region Laterality Modality Other 01/14/2025 7:49 AM EDT Narrative 01/14/2025 3:59 PM EDT 1 [facility] Heart Station [address] [facility] [place] [address] [phone] (fax) Transesophageal Echocardiogram-[facility] Name: ASYA ULLOA Study Date: 01/14/2025 07:49 AM B/P: 122 mmHg/67 mmHg HR: 71 bpm Date of : 1950 Location: [facility] Height: 65 in. Age: 74 year(s) Patient Room: [facility] Weight: 135 lb. 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 The EF is 50 % visually. Right Ventricle: The right ventricle is normal in size. Left Atrium: The left atrium appears enlarged. Structural Heart: Pre-Mitral Valve Clip Results There is no pericardial effusion. There is no evidence of systolic flow reversal in the pulmonary veins. There is moderate to severe mitral regurgitation. There is no evidence of a PFO by color flow Doppler. Post-Mitral Valve Clip Results 1 clip(s) were attached to P2-A2. There is no pericardial effusion. There is no evidence of systolic flow reversal in the pulmonary veins. There is mild mitral regurgitation. There is a medium residual PFO post transseptal puncture. Overall Conclusions: HAROON was performed to guide mitraclip. Successful placement of mitraclip at A2-P2 scallops with reduction of MR severity from moderate to severe to mild. No pericardial effusion before during or after the procedure. Measurements Left Ventricle Label Value Normal Value LVEF visual 50 % Valvular Assessment LVOT 0.7 - 1.1 m/sec Aortic Valve 1.0 - 1.7 m/sec Mitral Valve 0.6 - 1.3 m/sec Tricuspid Valve 0.3 - 0.7 m/sec Pulmonic Valve 0.6 - 0.9 m/sec Regurgitation Moderate Max Gradient 7.00 mmHg Mean Gradient 3.00 mmHg Findings Left Ventricle: Global left ventricular systolic function is at lower limits of normal. The EF is 50 % visually. Right Ventricle: The right ventricle is normal in size. Left Atrium: The left atrium appears enlarged. Right Atrium: The right atrium appears enlarged. Mitral Valve Measurements MV Vmax: 1.31 m/s. MV Vmean: 0.73 m/s. MV PGmax: 7.00 mmHg. MV PGmean: 3.00 mmHg. Tricuspid Valve: Moderate tricuspid regurgitation. Structural Heart: Pre-Mitral Valve Clip Results There is no pericardial effusion. There is no evidence of systolic flow reversal in the pulmonary veins. There is moderate to severe mitral regurgitation. There is no evidence of a PFO by color flow Doppler. Post-Mitral Valve Clip Results 1 clip(s) were attached to P2-A2. There is no pericardial effusion. There is no evidence of systolic flow reversal in the pulmonary veins. There is mild mitral regurgitation. There is a medium residual PFO post transseptal puncture. Procedure Staff Reading Group: [facility] Operator: NETTIE Meeks, RDCS Ordering Physician: RAFIA ROGER Procedure Note Shara Martinez MD - 01/14/2025 1 [facility] Heart Station [address] [place] [address] [phone] (fax) Transesophageal Echocardiogram-[facility] Name: ASYA ULLOA Study Date: 01/14/2025 07:49 AM B/P: 122 mmHg/67 mmHg HR: 71 bpm Date of : 1950 Location: [facility] Height: 65 in. Age: 74 year(s) Patient Room: 3186 Weight: 135 lb. 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 The EF is 50 % visually. Right Ventricle: The right ventricle is normal in size. Left Atrium: The left atrium appears enlarged. Structural Heart: Pre-Mitral Valve Clip Results There is no pericardial effusion. There is no evidence of systolic flow reversal in the pulmonary veins. There is moderate to severe mitral regurgitation. There is no evidence of a PFO by color flow Doppler. Post-Mitral Valve Clip Results 1 clip(s) were attached to P2-A2. There is no pericardial effusion. There is no evidence of systolic flow reversal in the pulmonary veins. There is mild mitral regurgitation. There is a medium residual PFO post transseptal puncture. Overall Conclusions: HAROON was performed to guide mitraclip. Successful placement of mitraclip at A2-P2 scallops with reduction of MR severity from moderate to severe to mild. No pericardial effusion before during or after the procedure. Measurements Left Ventricle Label Value Normal Value LVEF visual 50 % Valvular Assessment LVOT 0.7 - 1.1 m/sec Aortic Valve 1.0 - 1.7 m/sec Mitral Valve 0.6 - 1.3 m/sec Tricuspid Valve 0.3 - 0.7 m/sec Pulmonic Valve 0.6 - 0.9 m/sec Regurgitation Moderate Max Gradient 7.00 mmHg Mean Gradient 3.00 mmHg Findings Left Ventricle: Global left ventricular systolic function is at lower limits of normal. The EF is 50 % visually. Right Ventricle: The right ventricle is normal in size. Left Atrium: The left atrium appears enlarged. Right Atrium: The right atrium appears enlarged. Mitral Valve Measurements MV Vmax: 1.31 m/s. MV Vmean: 0.73 m/s. MV PGmax: 7.00 mmHg. MV PGmean: 3.00 mmHg. Tricuspid Valve: Moderate tricuspid regurgitation. Structural Heart: Pre-Mitral Valve Clip Results There is no pericardial effusion. There is no evidence of systolic flow reversal in the pulmonary veins. There is moderate to severe mitral regurgitation. There is no evidence of a PFO by color flow Doppler. Post-Mitral Valve Clip Results 1 clip(s) were attached to P2-A2. There is no pericardial effusion. There is no evidence of systolic flow reversal in the pulmonary veins. There is mild mitral regurgitation. There is a medium residual PFO post transseptal puncture. Procedure Staff Reading Group: [facility] Operator: NETTIE Meeks, RDCS Ordering Physician: RAFIA ROGER Rafael Robins MD CV ECHO PROCEDURES Final Res ult * (ABNORMAL) POC Activated Clotting Time (01/14/2025 11:34 AM EDT) Only the most recent of4 resultswithin the time period is included. POCT ACT 158(A) 82 - 152 seconds QC Pass/Fail Passed QC LOT # [id number] QC Expiration Date 73,125 Blood Venous blood specimen / Unknown 01/14/2025 11:34 AM EDT Narrative Jonas Blas MT - 01/15/2025 6:43 AM EDT Qc lot [id number]; dehydrating press operator [id number] us Rafael Robins MD POINT OF CARE TEST ENTER/SHARON T ORDERABLES Final Result * TRANSCATHETER MITRAL VALVE REPAIR (01/14/2025 11:19 AM EDT) Anatomical Region Laterality Modality Other Narrative 01/14/2025 12:03 PM EDT INDICATION: Asya Ulloa is a 74 y.o. female with symptomatic NYHA class III severe secondary (functional) non-rheumatic mitral valve regurgitation despite maximally tolerated guideline-directed medical therapy and cardiac resynchronization therapy. she was evaluated by Interventional Cardiology and Heart Failure, and was deemed appropriate for ANA as treatment for her mitral valve regurgitation. she had shared decision making and agreed to the procedure. she is brought today for that purpose. PROCEDURES: Successful transcatheter [id number] repair (ANA) of the mitral valve using XTW MitraClip device. Transseptal puncture performed under fluoroscopic and transesophageal echocardiography guidance. Preclosure in the right common femoral vein using two 6-Taiwanese ProGlide devices. Access into the right and left common femoral vein under ultrasound guidance. OPERATORS: Interventional Recordist Chief: Rafael Robins MD. Deicer Inspector Electric Interventional Recordist Chief: Chi Bejarano MD. Interventional Senior Billing Consultant: Dr Hunter Mittal. METHODS: Procedure was explained to the patient with risks and benefits. she signed informed consent. 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 The procedure was performed in the cardiac concrete mixing plant laborer under general anesthesia administered by the anesthesiology team. Transesophageal echocardiogram was performed under conscious sedation. Please refer to HAROON's separate dictation. There was no pericardial effusion at baseline. There was no thrombus in the left atrial appendage. The right and left groin area was prepped and draped in usual fashion. Micropuncture technique and ultrasound guidance were used for access in the left common femoral vein and a 4-Taiwanese x 11 cm sheath was placed in order to gain central venous access for administration of medications and fluids. Micropuncture technique and ultrasound guidance were used for access in the right common femoral vein and a 6-Taiwanese x 11 cm sheath was placed. A preclosure in the right common femoral vein was performed using two 6-Taiwanese ProGlide devices. The access sheath was then advanced. The patient was given 4000 units of heparin. The transseptal sheath wire was advanced into the superior vena cava and an SL1 transseptal sheath and dilator were advanced. The BRK-1 needle was then advanced, and under fluoroscopic and echocardiographic guidance, a transseptal puncture was performed in a posterior position along the anterior/posterior axis and middle position along the superior/inferior axis of the atrial septum, with a height of 4.4 cm above the level of the mitral valve annulus. The sheath was advanced to the left atrium and position confirmed by echocardiography and fluoroscopy. Left atrial pressure was measured. Additional heparin was given as needed, and therapeutic ACT confirmed during the rest of the procedure. An exchange length Amplatz Super Stiff wire with 1 cm soft tip was advanced to the left superior pulmonary vein. The transseptal sheath was exchanged to the MitraClip Steerable Guiding Catheter (SGC), which was advanced to the left atrial cavity. Based on the HAROON imaging, we decided to proceed with a XTW MitraClip. The device was prepped and advanced through the SGC and straddling was confirmed. The clip was steered towards the mitral valve and then the arms were opened. The graspers were identified individually. The clip was closed and advanced through the valve. The clip was opened below the valve and was positioned at the site of the regurgitation origin. The appropriate orientation of the clip was confirmed using the 3D en face view. The clip was retracted and the graspers were released. HAROON confirmed adequate grasping of the leaflets. The clip was closed. HAROON assessment of the valve showed significant reduction of mitral regurgitation however there was still 2+ residual regurgitation. Therefore we decided to move the clip more laterally. The clip was unlocked and opened and the leaflets released and the clip was moved a bit laterally. The appropriate orientation of the clip was confirmed using the 3D en face view. The clip was retracted and the graspers were released. HAROON confirmed adequate grasping of the leaflets. The clip was closed. HAROON assessment showed significant reduction of mitral regurgitation to grade 1+. The mitral valve gradient was 3 mmHg. The clip was stable in position and therefore was released and the clip delivery system was retracted. Further assessment of the valve after release showed mitral regurgitation grade 1+ and mitral valve gradient of 3 mmHg. At this stage, the procedure was concluded. The SGC was removed. Transesophageal echocardiography showed no evidence of new pericardial effusion. The HAROON probe was retracted. The previously placed Perclose sutures were tightened in the right common femoral vein achieving good hemostasis. The patient was given protamine 25 mg at the end of the procedure. The 4-Taiwanese left femoral venous sheath was removed and manual compression applied for hemostasis. she tolerated the procedure well. she was hemodynamically stable and awake throughout the procedure with no apparent complications. she was recovered by the anesthesiology team. she will be transferred to the hospital bed for further management. HEMODYNAMICS: At baseline: LA 16 mmHg with V-wave to 25 mmHg. Post procedure: LA 12 mmHg with V-wave to 16 mmHg. RECOMMENDATIONS: 1. Eliquis 5 mg twice daily to start tomorrow morning. 2. Echocardiogram the next morning. 3. Endocarditis prophylaxis for life after transcatheter mitral valve repair. 4. Follow up in Cardiology Clinic in 1 month with echocardiogram. Rafael Robins MD Study Details Nonrheumatic mitral valve regurgitation [I34.0] Rafia Roger CNP CV CARDIAC CATH PROCEDURES Fi nal Result * (ABNORMAL) CBC auto differential (01/14/2025 9:35 AM EDT) Auto WBC 4.84 4.00 - 10.60 10*3/uL 01/14/2025 9:48 AM EDT [facility] ([facility]) RBC 3.80 3.80 - 5.00 10*6/uL 01/14/2025 9:48 AM T [facility] ([facility]) Hemoglobin 11.8(L) 12.0 - 15.0 g/dL 01/14/2025 9:48 AM EDT [facility] ([facility]) Hematocrit 35.8(L) 36.0 - 45.0 % 01/14/2025 9:48 AM T [facility] ([facility]) MCV 94.2 82.0 - 98.0 fL 01/14/2025 9:48 AM EDT [facility] ([facility]) MCH 31.1 27.0 - 33.0 pg 01/14/2025 9:48 AM EDT [facility] ([facility]) MCHC 33.0 32.0 - 35.0 g/dL 01/14/2025 9:48 AM EDT [facility] ([facility]) RDW 13.4 11.5 - 15.0 % 01/14/2025 9:48 AM EDT [facility] ([facility]) Neutrophils % 61.6 40.0 - 72.0 % 01/14/2025 9:48 AM EDT [facility] ([facility]) Lymphocytes % 27.7 20.0 - 45.0 % 01/14/2025 9:48 AM EDT [facility] ([facility]) Monocytes % 8.3 5.0 - 12.0 % 01/14/2025 9:48 AM EDT [facility] ([facility]) Eosinophils % 1.4 0.0 - 6.0 % 01/14/2025 9:48 AM EDT [facility] ([facility]) Basophils % 0.6 0.0 - 1.0 % 01/14/2025 9:48 AM EDT [facility] ([facility]) Neutrophils Absolute 2.98 1.60 - 7.60 10*3/uL 01/14/2025 9:48 AM EDT [facility] ([facility]) Lymphocytes Absolute 1.34 1.20 - 4.00 10*3/uL 01/14/2025 9:48 AM EDT [facility] ([facility]) Monocytes Absolute 0.40 0.10 - 1.00 10*3/uL 01/14/2025 9:48 AM T [facility] ([facility]) Eosinophils Absolute 0.07 0.00 - 0.50 10*3/uL 01/14/2025 9:48 AM EDT [facility] ([facility]) Basophils Absolute 0.03 0.00 - 0.20 10*3/uL 01/14/2025 9:48 AM EDT [facility] ([facility]) Platelets 178 150 - 400 10*3/uL 01/14/2025 9:48 AM EDT [facility] ([facility]) nRBC % 0.0 0 % 01/14/2025 9:48 AM EDT [facility] ([facility]) Immature Granulocytes % 0.4 0.0 - 1.0 % 01/14/2025 9:48 AM EDT [facility] ([facility]) Immature Granulocytes Absolute 0.02 0.00 - 0.20 10*3/uL 01/14/2025 9:48 AM EDT [facility] ([facility]) Blood Venous blood specimen / Unknown Venipuncture / Unknown 01/14/2025 9:35 AM EDT 01/14/2025 9:35 AM EDT Rafael Robins MD LAB BLOOD ORDERABLES Final R esult Performing Organization Address City/[facility]/ZIP Co de Phone Number [facility] ([facility]) [address] [place] [address] * Type and screen (01/14/2025 9:35 AM EDT) ABO Grouping O 01/14/2025 10:24 AM EDT [facility] BLOOD BANK Rh Type POS 01/14/2025 10:24 AM EDT [facility] B[facility]OD B[facility] Ab Scrn NEG 01/14/2025 10:24 AM EDT [facility] B[facility]OD BANK Blood Venous blood specimen / Unknown Venipuncture / Unknown 01/14/2025 9:35 AM EDT 01/14/2025 9:35 AM EDT us Rafael Robins MD LAB BLOOD BANK TEST ORDERABL ES Final Result Performing Organization Address City/[facility]/ZIP Co de Phone Number [facility] BLOOD BANK * (ABNORMAL) POC Hb02% (01/14/2025 9:32 AM EDT) CEADLI24% 97.3(A) 90 - 95 % QC Pass/Fail Passed QC LOT # [id number] QC Expiration Date 73,126 SAMPLESITE nl Blood Venous blood specimen / Unknown 01/14/2025 9:32 AM EDT Narrative Jonas Blas MT - 01/15/2025 6:28 AM EDT Recordist Chief [id number] us Rafael Robins MD POINT OF CARE TEST ENTER/SHAORN T ORDERABLES Final Result * ANESTHESIA ARTERIAL LINE PLACEMENT (01/14/2025 9:04 AM EDT) Narrative Lobo Machado MD - 01/14/2025 9:04 AM EDT Irving Mendoza MD 01/14/2025 10:19 AM Arterial Line: Date/Time: 01/14/2025 9:04 AM An [...] no complications. Additional notes: [place] Staffing Performed: resident/MANAGER FINANCIAL SERVICES/CAA Anesthesiologist: Lobo Machado MD Resident/MANAGER FINANCIAL SERVICES: Margaret Briceno MD Performed by: Irving Mendoza MD Authorized by: Lobo Machado MD us Lobo Machado MD ANESTHESIA ORDERABLES Final Re sult * FL AN ELECTIVE ENDOTRACHEAL AIRWAY (01/14/2025 8:52 AM EDT) Lobo Hilliard MD - 01/14/2025 8:52 AM EDT Irving Mendoza MD 01/14/2025 10:17 AM Airway Date/Time: 01/14/2025 8:52 AM Urgency: elective Airway not difficult General Information and Staff Patient location during procedure: [place] Anesthesiologist: Lobo Machado MD Resident/MANAGER FINANCIAL SERVICES/CAA: Margaret Briceno MD Performed: resident/MANAGER FINANCIAL SERVICES/CAA Indications and Patient Condition Indications for airway [...] 1 Number of other approaches attempted: 0 us Lobo Machado MD ANESTHESIA ORDERABLES Final Re sult * POCT glucose meter (01/14/2025 7:50 AM EDT) Glucose POC 92 70 - 105 mg/dL 01/14/2025 8:01 AM EDT [facility] ([facility]) Comment:[email or web address] Blood Capillary blood specimen / Unknown 01/14/2025 7:50 AM EDT 01/14/2025 8:01 AM EDT Narrative [facility] ([facility]) - 01/14/2025 8:01 AM EDT Waived Testing in the ED is performed under the ED CLIA certificate #[id number]. us Rafael Robins MD LAB BLOOD ORDERABLES Final R esult [facility] ([facility]) [address], [place] [id number] * Protime-INR (01/14/2025 7:50 AM EDT) Protime 14.0 12.3 - 14.8 Seconds 01/14/2025 8:21 AM EDT [facility] ([facility]) INR 1.08 0.90 - 1.10 01/14/2025 8:21 AM EDT [facility] ([facility]) Comment: [facility] RECOMMENDED INR FOR WARFARIN THERAPY CONDITION INR PROPHYLAXIS OF VENOUS THROMBOSIS 2-3 (HIGH-RISK SURGERY) TREATMENT OF VENOUS THROMBOSIS 2-3 TREATMENT OF PULMONARY EMBOLISM 2-3 PREVENTION OF SYSTEMIC EMBOLISM: 2-3 ACUTE MYOCARDIAL INFARCTION TISSUE HEART VALVES VALVULAR HEART DISEASE ATRIAL FIBRILLATION RECURRENT SYSTEMIC EMBOLISM MECHANICAL HEART VALVE 2.5-3.5 FROM: ORAL ANTICOAGULANTS. MECHANISM OF ACTION, CLINICAL EFFECTIVENESS, AND OPTIMAL THERAPEUTIC RANGE. CHEST 1995;108:231S-246S. Blood Venous blood specimen / Unknown Venipuncture / Unknown 01/14/2025 7:50 AM EDT 01/14/2025 8:13 AM EDT Rafael Robins MD LAB BLOOD ORDERABLES Final R esult [facility] ([facility]) [address] [place] [address] * CARDIAC DEVICE CHECK - REMOTE - PACEMAKER (12/13/2024 11:53 AM EDT) [facility] BSA 1.68 m2 [facility] Marco Peguero MD CV IMPLANTABLE CARDIAC DEVICE FL OCEDURES Final Result Performing Organization Address [facility] Co de Phone Number [facility] * Cardiac device check - Remote pacemaker (12/04/2024 12:00 AM EDT) Anatomical Region Laterality Modality Other 12/04/2024 Marco Peguero MD CV IMPLANTABLE CARDIAC DEVICE FL OCEDURES Final Result * TRANSESOPHAGEAL ECHO (HAROON) W/ LIMITED DOPPLER AND COLOR FLOW (11/29/2024 9:47 AM EDT) Anatomical Region Laterality Modality Other 11/29/2024 8:58 AM EDT Narrative 11/29/2024 3:35 PM EDT 1 [facility] Heart Station [address] [facility] [place] [address] [phone] (fax) Transesophageal Echocardiogram-[facility] Name: ASYA ULLOA Study Date: 11/29/2024 08:58 AM B/P: 137 mmHg/62 mmHg HR: Date of : 1950 Location: [facility] Height: 65 in. Age: 74 year(s) Patient Room: Weight: 134 lb. Gender: Female Patient Status: OutPt BSA: 1.67 m2 Indication: Mitral regurgitation, Atrial Fibrillation Examination: HAROON (Transesophageal Echo / CFI), Limited Doppler, 3D images, Agitated Saline Image Quality: Adequate Patient Consent: Informed, written consent was obtained for the procedure Exam Details Contrast: I.V. 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 Anesthesia Pharyngeal anesthesia with viscous Lidocaine Conclusions Left Ventricle: The left ventricle is normal [...] fentanyl) recommend general anasthesia for future HAROON Medications Date Time Name Route Form Dose Units Ordered By Given By Comment 11/29/2024 09:46 AM Midazolam HCL (Versed) 8 milligrams 11/29/2024 09:46 AM Fentanyl (Opiates) 100 micrograms Measurements Left Ventricle Label Value Normal Value LVEF visual 50 % Valvular Assessment LVOT 0.7 - 1.1 m/sec Aortic Valve 1.0 - 1.7 m/sec Mitral Valve 0.6 - 1.3 m/sec Tricuspid Valve 0.3 - 0.7 m/sec Pulmonic Valve 0.6 - 0.9 m/sec Regurgitation Trivial SevMR Severe No Stenosis No Watchman Table Degrees Width Depth 0 16.8 15.4I 45 16.3 14.2I 90 12.5 I11.9 135 18.2 14.4I Findings Left Ventricle: The left ventricle is normal size. Global left ventricular systolic function is at lower limits of normal. The EF is 50 % visually. Left ventricular wall thickness is normal. No regional wall motion abnormality. Right Ventricle: The right ventricle appears normal in size. Right ventricular systolic function appears normal. A line (catheter or pacing wire) is present. Left Atrium: The left atrium is severely enlarged. Left Atrium Appendage: The left atrial appendage is monolobular. Normal left atrial appendage, no thrombus seen. IAS: Normal appearing atrial septum. No intracardiac shunt by agitated saline injections. Right Atrium: The right atrium is severely enlarged. A line (catheter or pacing wire) is present. Mitral Valve: Flow reversal is seen in the pulmonary veins suggestive of severe mitral regurgitation. No mitral valve stenosis. There is malcoaptation of the mitral valve leaflets. The multiple MR gets and the main one is eccentric and posterioly directed. Mitral Valve Measurements MR Vmax: 4.66 m/s. MR VTI: 160.0 cm.PISA radius 0.8 cm. ERO 0.29 cm2. MR volume 43 ml Aortic Valve: The aortic valve is normal. Trivial aortic valve regurgitation. The aortic valve is trileaflet. Tricuspid Valve: Normal tricuspid valve. Possible partial flail leflet in the posterior leaflet. Severe tricuspid regurgitation probably related to restricted movement of the posterior leaflet possibley due to the pacemaker wire. Pulmonic Valve: Normal pulmonary valve. No pulmonary regurgitation. Aorta: Moderate atherosclerotic plaque is seen in the aorta. The aortic root exhibits normal size. Pericardium: No pericardial effusion. Procedure Staff Reading Group: [facility] Swager Operator: Bigg Bill RDCS Ordering Physician: MARCO PEGUERO MD Procedure Note Shara Martinez MD - 11/29/2024 1 [facility] Heart Station [address] [facility] [place] [address] [phone] (fax) Transesophageal Echocardiogram-[facility] Name: ASYA ULLOA Study Date: 11/29/2024 08:58 AM B/P: 137 mmHg/62 mmHg HR: Date of : 1950 Location: [facility] Height: 65 in. Age: 74 year(s) Patient Room: Weight: 134 lb. Gender: Female Patient Status: OutPt BSA: 1.67 m2 Indication: Mitral regurgitation, Atrial Fibrillation Examination: HAROON (Transesophageal Echo / CFI), Limited Doppler, 3D images, Agitated Saline Image Quality: Adequate Patient Consent: Informed, written consent was obtained for the procedure Exam Details Contrast: I.V. 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 Anesthesia Pharyngeal anesthesia with viscous Lidocaine Conclusions Left Ventricle: The left ventricle is normal [...] fentanyl) recommend general anasthesia for future HAROON Medications Date Time Name Route Form Dose Units Ordered By Given By Comment 11/29/2024 09:46 AM Midazolam HCL (Versed) 8 milligrams 11/29/2024 09:46 AM Fentanyl (Opiates) 100 micrograms Measurements Left Ventricle Label Value Normal Value LVEF visual 50 % Valvular Assessment LVOT 0.7 - 1.1 m/sec Aortic Valve 1.0 - 1.7 m/sec Mitral Valve 0.6 - 1.3 m/sec Tricuspid Valve 0.3 - 0.7 m/sec Pulmonic Valve 0.6 - 0.9 m/sec Regurgitation Trivial SevMR Severe No Stenosis No Watchman Table Degrees Width Depth 0 16.8 15.4I 45 16.3 14.2I 90 12.5 I11.9 135 18.2 14.4I Findings Left Ventricle: The left ventricle is normal size. Global left ventricular systolic function is at lower limits of normal. The EF is 50 % visually. Left ventricular wall thickness is normal. No regional wall motion abnormality. Right Ventricle: The right ventricle appears normal in size. Right ventricular systolic function appears normal. A line (catheter or pacing wire) is present. Left Atrium: The left atrium is severely enlarged. Left Atrium Appendage: The left atrial appendage is monolobular. Normal left atrial appendage, no thrombus seen. IAS: Normal appearing atrial septum. No intracardiac shunt by agitated saline injections. Right Atrium: The right atrium is severely enlarged. A line (catheter or pacing wire) is present. Mitral Valve: Flow reversal is seen in the pulmonary veins suggestive of severe mitral regurgitation. No mitral valve stenosis. There is malcoaptation of the mitral valve leaflets. The multiple MR gets and the main one is eccentric and posterioly directed. Mitral Valve Measurements MR Vmax: 4.66 m/s. MR VTI: 160.0 cm.PISA radius 0.8 cm. ERO 0.29 cm2. MR volume 43 ml Aortic Valve: The aortic valve is normal. Trivial aortic valve regurgitation. The aortic valve is trileaflet. Tricuspid Valve: Normal tricuspid valve. Possible partial flail leflet in the posterior leaflet. Severe tricuspid regurgitation probably related to restricted movement of the posterior leaflet possibley due to the pacemaker wire. Pulmonic Valve: Normal pulmonary valve. No pulmonary regurgitation. Aorta: Moderate atherosclerotic plaque is seen in the aorta. The aortic root exhibits normal size. Pericardium: No pericardial effusion. Procedure Staff Reading Group: [facility] Operator: Bigg Bill RDCS Ordering Physician: MARCO PEGUERO MD Marco Peguero MD CV ECHO PROCEDURES Final Result from Last 3 Months Insurance MEDICARE [facility] Advance Directives * Full Code (Latest Code Status on File) Date Activated Date Inactivated Comments 01/14/2025 2:43 PM 01/15/2025 7:02 PM * Full Code Date Activated Date Inactivated Comments 01/14/2025 2:43 PM 01/14/2025 2:43 PM Care Teams Olive Packer Relationship Specialty Start Date End Date Hannah Brian MD [address] [place] [address] PCP - General Family Medicine 11/03/23
--- OUTSIDE RECORDS SUMMARY | 2025-01-30 10:00 | XMS_ITS | Encounter Summary ---
Author Organization [facility] Address [address] [place] [address] Care Team Providers Care Elementary Assistant Teacher Name Role Phone Hannah Brian MD Primary Care Provider [phone] Encounter Details Date Type Department Care Team (Late st Contact Info) Description 01/24/2025 Telephone [facility] Heart at [facility] [address] [place] [address] Allison Jefferson MA Social History Tobacco Use Types Packs/Day Years Used Date Smoking Tobacco: Former Cigarettes Passive Smoke Exposure: Past Smokeless Tobacco: Never Passive Exposure Comments:so cial smoker stopped in 1989 Alcohol Use Standard Drinks/Week Comments Never 0 (1 standard drink = 0.6 oz pur e alcohol) [facility] Utilities Answer Date Recorded In the past 12 months has e electric, gas, oil, or water company threatened to [...] any time in the past 12 m onths, were you homeless or living in a residential (including now)? No 01/14/2025 Hunger Vital Sign [...] on file documented as of this encounter Miscellaneous Notes * Telephone Encounter - Niecy Mazariegos CNP - 01/25/2025 8:30 AM EDT Rafael, would it be ok for her to hold Eliquis for a few days with her recent MitraClip or does sheneed to continue and maybe reduce the dose? -Maybe we move forward with Watchman for her after you see her on 02/10? * Telephone Encounter - Niecy Mazariegos CNP - 01/25/2025 8:30 AM EDT Rafael, would it be ok for her to hold Eliquis for a few days with her recent MitraClip or does sheneed to continue and maybe reduce the dose? -Maybe we move forward with Watchman for her after you see her on 02/10? documented in this encounter Plan of Treatment Upcoming Encounters Date Type Department Care Team (Late st Contact Info) Description 02/10/2025 1:45 PM EDT Follow-Up [facility] [address] [place] [facility] [place] [address] Rafael Robins MD [address] [facility] [address] [facility] [place] [address] 02/18/2025 3:45 PM EDT Ancillary Procedure [facility] [address] [place] [facility] [place] [address] documented as of this encounter Visit Diagnoses Not on filedocumented in this encounter Care Teams Elementary Assistant Teacher Relationship Specialty Start Date End Date Hannah Brian MD [address] [place] [address] PCP - General Family Medicine 11/03/23 documented as of this encounter
--- OUTSIDE RECORDS SUMMARY | 2025-01-30 10:00 | XMS_ITS | Encounter Summary ---
Author Organization [facility] Address [address] [facility] [place] [address] Care Team Providers Care Cable Former Name Role Phone Peggy Whitley MD Unavailable [phone] Peggy Whitley MD Primary Care Provider [phone] Hannah Brian MD Primary Care Provider [phone] Encounter Details Date Type Department Care Team (Late Contact Info) Description 10/18/2023 Clinisync Result Encounter [facility] External Department Unsolicited [...] 04/09/2025 3:20 PM EDT Office Visit [facility] [address] [place] [address] Hannah Brian MD [address] [place] [address] documented as of this encounter Procedures Procedure Name Priority Date/Time Associated Diagnosis Comments VASC US CAROTID ARTERY DUPLEX BILATERAL 10/18/2023 11:26 AM EST documented in this encounter Results * Vascular US carotid artery duplex bilateral (10/18/2023 11:26 AM EST) Anatomical Region Laterality Modality Neck Ultrasound 10/18/2023 11:2 6 AM EST Narrative 10/18/2023 11:29 AM EST The [address] [address] Ultrasound Report Signed Patient: ASYA ULLOA I MR#: [id number] : 1950 Acct:[id number] Age/Sex: 73 / F ADM Date: 10/18/23 Loc: CARD Attending Dr: Non-Staff Physician M.DElise Ordering Physician: Physician,Non-Staff M.Ruba Date of Service: 10/18/23 Procedure(s): US carotid duplex BI Accession Number(s): [id number] cc: PEGGY WHITLEY ; Physician,Non-Staff MAntonio The [address] [address] Patient Name: ASYA ULLOA MRN: [id number] date: 1950 Sex: F Assigned Patient Location: CARD Current Patient Location: CARD Accession/Order Number: [id number] Exam Date: 10/18/2023 09:50 Report Date: 10/18/2023 11:26 At the request of: NON-STAFF PHYSICIAN Procedure: US carotid duplex BI EXAMINATION: US carotid duplex BI HISTORY: Dizziness R42 COMPARISON: No relevant comparison available. TECHNIQUE: Duplex Doppler ultrasound analysis of carotid and vertebral arteries. . Bilateral carotid arterial duplex examination was performed using B-mode, color flow and spectral analysis. Carotid stenosis is reported according to validated velocity parameters, similar to NASCET criteria. FINDINGS: RIGHT CAROTID ARTERY Mild plaque Subclavian: PSV: 118.1 cm/s cm/s EDV: 0.0 cm/s cm/s CCA: Prox: PSV: 88.9 cm/s cm/s EDV: 14.2 cm/s cm/s Mid: PSV: 74.6 cm/s cm/s EDV: 10.9 cm/s cm/s Distal: PSV: 54.8 cm/s cm/s EDV: 12.0 cm/s cm/s BULB: PSV: 49.0 cm/s cm/s EDV: 9.9 cm/s cm/s ICA: Prox: PSV: 61.8 cm/s cm/s EDV: 16.5 cm/s cm/s Mid: PSV: 112.1 cm/s cm/s EDV: 31.3 cm/s cm/s Distal: PSV: 104.3 cm/s cm/s EDV: 23.5 cm/s cm/s ECA: PSV: 86.6 cm/s cm/s EDV: 3.8 cm/s cm/s VERTEBRAL: PSV: 90.5 cm/s cm/s EDV: 11.5 cm/s cm/s, antegrade ICA/CCA ratio: PSV: 2.0 EDV: 2.6 LEFT CAROTID ARTERY Mild Plaque Subclavian: PSV: 42.7 cm/s cm/s EDV: 0.0 cm/s CCA: Prox: PSV: 98.4 cm/s cm/s EDV: 15.6 cm/s Mid: PSV: 108.2 cm/s cm/s EDV: 13.7 cm/s Distal: PSV: 84.9 cm/s cm/s EDV: 13.7 cm/s BULB: PSV: 44.8 cm/s cm/s EDV: 8.5 cm/s ICA: Prox: PSV: 59.0 cm/s cm/s EDV: 15.4 cm/s Mid: PSV: 99.1 cm/s cm/s EDV: 28.0 cm/s Distal: PSV: 90.1 cm/s cm/s EDV: 22.8 cm/s ECA: PSV: 84.9 cm/s cm/s EDV: 4.7 cm/s VERTEBRAL: PSV: 75.8 cm/s cm/s EDV: 13.7 cm/s , antegrade ICA/CCA ratio: PSV: 1.2 EDV: 2.0 US/US carotid duplex BI IMPRESSION: 0-49% flow stenosis bilateral internal carotid arteries Spectral Doppler US Thresholds (Reference: Jonathan EG, et al. Radiology 2000; 214:247-252) Stenosis (%) PSV (cm/sec) VICA/VCCA 0-49 <150 <2.5 50-69 150-225 2.5-4.0 >70 >225 >4.0 Electronically authenticated by: LEXA DYSON Date: 10/18/2023 11:26 Dictated By: Lexa Dyson M.D. Signed By: 10/18/23 1129 DD/ 1126 TD/TT: Shearer Helper: Procedure Note Radiology, Radiologist, MD - 10/18/2023 [place] [address] Ultrasound Report Signed Patient: ASYA ULLOA IMR#: [id number] : 1950cct:[id number] Age/Sex: 73 / FADM Date: 10/18/23 Loc: CARD Attending Dr: Non-Staff Physician Pedro Ordering Physician: PhysicianPat M.D. Date of Service: 10/18/23 Procedure(s): US carotid duplex BI Accession Number(s): [id number] cc: PEGGY WHITLEY ; PhysicianConradoStaff Pedro The [place] [address] Patient Name: ASYA ULLOA MRN: [id number] date: 1950 Sex: F Assigned Patient Location: CARD Current Patient Location: CARD Accession/Order Number: [id number] Exam Date: 10/18/2023 09:50 Report Date: 10/18/2023 11:26 At the request of: NON-STAFF PHYSICIAN Procedure: US carotid duplex BI EXAMINATION: US carotid duplex BI HISTORY: Dizziness R42 COMPARISON: No relevant comparison available. TECHNIQUE: Duplex Doppler ultrasound analysis of carotid and vertebral arteries. . Bilateral carotid arterial duplex examination was performedusing B-mode, color flow and spectral analysis. Carotid stenosis is reported according to validated velocity parameters, similar to NASCET criteria. FINDINGS: RIGHT CAROTID ARTERY Mild plaque Subclavian: PSV: 118.1 cm/s cm/s EDV: 0.0 cm/s cm/s CCA: Prox: PSV: 88.9 cm/s cm/s EDV: 14.2 cm/s cm/s Mid: PSV: 74.6 cm/s cm/s EDV: 10.9 cm/s cm/s Distal: PSV: 54.8 cm/s cm/s EDV: 12.0 cm/s cm/s BULB: PSV: 49.0 cm/s cm/s EDV: 9.9 cm/s cm/s ICA: Prox: PSV: 61.8 cm/s cm/s EDV: 16.5 cm/s cm/s Mid: PSV: 112.1 cm/s cm/s EDV: 31.3 cm/s cm/s Distal: PSV: 104.3 cm/s cm/s EDV: 23.5 cm/s cm/s ECA: PSV: 86.6 cm/s cm/s EDV: 3.8 cm/s cm/s VERTEBRAL: PSV: 90.5 cm/s cm/s EDV: 11.5 cm/s cm/s, antegrade ICA/CCA ratio: PSV: 2.0 EDV: 2.6 LEFT CAROTID ARTERY Mild Plaque Subclavian: PSV: 42.7 cm/s cm/s EDV: 0.0 cm/s CCA: Prox: PSV: 98.4 cm/s cm/s EDV: 15.6 cm/s Mid: PSV: 108.2 cm/s cm/s EDV: 13.7 cm/s Distal: PSV: 84.9 cm/s cm/s EDV: 13.7 cm/s BULB: PSV: 44.8 cm/s cm/s EDV: 8.5 cm/s ICA: Prox: PSV: 59.0 cm/s cm/s EDV: 15.4 cm/s Mid: PSV: 99.1 cm/s cm/s EDV: 28.0 cm/s Distal: PSV: 90.1 cm/s cm/s EDV: 22.8 cm/s ECA: PSV: 84.9 cm/s cm/s EDV: 4.7 cm/s VERTEBRAL: PSV: 75.8 cm/s cm/s EDV: 13.7 cm/s , antegrade ICA/CCA ratio: PSV: 1.2 EDV: 2.0 US/US carotid duplex BI IMPRESSION: 0-49% flow stenosis bilateral internal carotid arteries Spectral Doppler US Thresholds (Reference: Jonathan EG, et al. [id number]; 214:247-252) Stenosis (%) PSV (cm/sec) VICA/VCCA 0-49 <150 <2.5 50-69 150-225 2.5-4.0 >70 >225 >4.0 Electronically authenticated by: LEXA DYSON Date: 10/18/2023 11:26 Dictated By: Lexa Dyson M.D. Signed By:10/18/23 1129 DD/ 1126 TD/TT: Shearer Helper: us Generic External Data Provider IMG US PROCEDURES Final Result documented in this encounter Visit Diagnoses Not on filedocumented in this encounter Care Teams Cable Former Relationship Specialty Start Date End Date Peggy Whitley MD [address] [place] [address] PCP - ACO Reach 01/05/23 Peggy Whitley MD [address] [place] [address] PCP - General Family Medicine 02/08/23 11/02/23 Hannah Brian MD [address] [place] [address] PCP - General Family Medicine 11/03/23 documented as of this encounter
--- OUTSIDE RECORDS SUMMARY | 2025-01-30 10:00 | XMS_ITS | Referral Summary ---
Author Organization [facility] Address [address] [place] [address] Care Team Providers Care Broadcast Operations Technician Name Role Phone Hannah Brian MD Primary Care Provider Encounters Date Type Department Care Team Description 01/24/2025 Telephone [facility] [address] [place] [address] Allison Jefferson MA 01/23/2025 2:40 PM EDT Follow-Up [facility] [address] [place] [address] Niecy Mazariegos CNP Nonrheumatic mitral valve regurgitation (Primary Dx); Severe mitral regurgitation; S/P mitral valve repair; Primary hypertension; Chronic systolic heart failure (CMS/HCC); Nonrheumatic tricuspid valve regurgitation; Paroxysmal atrial fibrillation (CMS/HCC); Presence of biventricular automatic cardioverter/defibril lator (AICD); Cardiac pacemaker in situ 01/15/2025 Telephone [facility] [address] [place] [address] Allison Jefferson MA 01/14/2025 7:06 AM EDT - 01/15/2025 5:01 PM EDT Hospital Encounter [facility] [address] [place] [id number] Rafael Robins MD Severe mitral regurgitation (Primary Dx); Nonrheumatic mitral valve regurgitation; Primary hypertension Discharge Disposition: Home or Self Care () 01/14/2025 Travel 01/14/2025 8:30 AM EDT - 01/14/2025 10:30 AM EDT Surgery [facility] Vascular Lab [address] [place] [address] Rafael Robins MD Transcatheter mitral valve repair [23021] 01/14/2025 8:31 AM EDT Anesthesia Event [facility] [address] [place] [address] Lobo Machado MD 01/13/2025 Orders Only [facility] Pre-Anesthesia Clinic [address] [place] [address] Niecy Benito RN 01/09/2025 Orders Only [address] [address] Allison Jefferson MA Status post transcatheter aortic valve replacement 01/09/2025 Travel 01/08/2025 Orders Only [facility] [address] [place] [address] Rafia Roger CNP Nonrheumatic mitral valve regurgitation (Primary Dx) 12/24/2024 Telephone [facility] [address] [place] [address] Allison Jefferson MA 12/23/2024 1:30 PM EDT Office Visit [address] [address] Rafael Robins MD Nonrheumatic mitral valve regurgitation (Primary Dx); Chronic systolic heart failure (CMS/HCC); Nonrheumatic tricuspid valve regurgitation; Coronary artery disease involving [place] coronary artery of [place] heart without angina pectoris; Presence of biventricular automatic cardioverter/defibril lator (AICD); Longstanding persistent atrial fibrillation (CMS/HCC) 12/04/2024 Orders Only [facility] [address] [place] [phone] Marco Peguero MD 11/29/2024 Travel 11/29/2024 6:56 AM EDT - 11/29/2024 11:59 PM EDT Hospital Encounter [facility] Heart [facility] Vascular Lab [address] [place] [address] Nonrheumatic mitral valve regurgitation Discharge Disposition: Home or Self Care () 11/22/2024 Travel 11/22/2024 Telephone [facility] Heart [facility] Vascular Lab [address] [place] [address] Rocio Underwood, ROCÍO from Last 3 Months Allergies Active Allergy Reactions Criticality Noted Date [...] 6 month interrogation Paroxysmal atrial fibrillation 02/13/2024 director long term care 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 Severe protein-calorie malnutrition 08/30/2023 10/10/2023 Adjustment disorder [...] Incomplete bladder emptying 09/26/201209/15 Intestinal obstruction 03/13/2009 02/27/202 4 Immunizations Immunization Administration Dates Next Due DT (pediatric) 12/30/2004 DTP 12/14/2009 Td (adult), 5 Lf tetanus tox oid, preservative free, adsorbed 02/16/2016 Tdap 01/29/2018 Social History Tobacco Use Types Packs/Day Years Used Date Smoking Tobacco: Former Cigarettes Passive Smoke Exposure: Past Smokeless Tobacco: Never Tobacco Cessation:Counseling Given: No Passive Exposure Comments:social smoker stopped in 1989 Alcohol Use Standard Drinks/Week Comments Never 0 (1 standard drink = 0.6 oz pur e alcohol) [facility] Utilities Answer Date Recorded In the past 12 months has th e electric, gas, oil, or water [employer] threatened to shut off services in your [...] any time in the past 12 m [facility], were you homeless or living in a custodial (including now)? No 01/14/2025 Hunger Vital Sign [...] Info) Description 02/10/2025 1:45 PM EDT Follow-Up [address] [address] Rafael Robins MD [address] [facility] [address] [facility] [place] [phone] 02/18/2025 3:45 PM EDT Ancillary Procedure [facility] [address] [place] [address] Medical Devices Implanted Type Area Access Services Librarian Device Identifier Shelf Expiration Date Model / Serial / Lot Visionist X4 Is-1/Is4 Implanted:Qty: 1 on 02/28/2024 by Marco Peguero MD at [facility] Device [employer] [id number] 01/25/2026 [id number] / [id number] / System,Mitracl ip,G4,Xtw - [id number] Implanted:Qty: 1 on 01/14/2025 by Rafael Robins MD at [facility] Device N/A: Heart [employer] [id number] 03/26/2025 [id number] / / [id number] Ingevity+ Is-1 Bi Positive Fix Ra/Rv 52cm Implanted:Qty: 1 on 02/28/2024 by Marco Peguero MD at [facility] Lead [employer] [id number] 01/28/2026 [id number] / [id number] / Lead,Acuity X4,Straight - [id number] - [id number] Implanted:Qty: 1 on 02/28/2024 by Marco Peguero MD at [facility] [employer] [id number] 01/17/2026 [id number] / [id number] / Procedures Procedure Name Priority Date/Time Associated [...] LINE PLACEMENT Routine 01/14/2025 9:04 AM EDT ND AN ELECTIVE ENDOTRACHEAL AIRWAY Routine 01/14/2025 8:52 [...] QTC CALCULATION(BAZE TT) 455 ms GE MUSE R-[place] 116 degrees GE MUSE T Wave [place] 14 degrees GE MUSE 01/15/2025 10:4 0 AM EDT 01/15/2025 11:15 AM EDT Impressions GE MUSE - 01/15/2025 11:15 AM EDT Ventricular-paced rhythm Biventricular pacemaker detected Abnormal ECG When compared with ECG of 14-JAN-2025 14:56, No significant change was found Confirmed by Pedro MARTINEZ SAMER J. (57) on 01/15/2025 11:15:42 AM Narrative Procedure Note Shara Martinez MD - 01/15/2025 IMPRESSION: Ventricular-paced rhythm Biventricular pacemaker detected Abnormal ECG When compared with ECG of 14-JAN-2025 14:56, No significant change was found Confirmed by Pedro MARTINEZ SAMER J. (57) on 01/15/2025 11:15:42 AM us Rafael Robins MD ECG ORDERABLES Final Result GE MUSE * LIMITED ECHO (TTE) W/ LIMITED DOPPLER, COLOR FLOW AND IMAGING AGENT (01/15/2025 9:34 AM EDT) Anatomical Region Laterality Modality Other 01/15/2025 9:13 AM EDT Narrative 01/15/2025 12:08 PM EDT 1 1 [place] [facility] Heart Station [address] [place] [address] [phone] (fax) Echocardiogram-[facility] Name: ASYA ULLOA Study Date: 01/15/2025 09:13 AM B/P: 89 mmHg/71 mmHg HR: 70 bpm Date of : 1950 Location: [facility] Height: 65 in. Age: 74 year(s) Patient Room: [facility] Weight: 138 lb. Gender: Female Patient Status: [...] No pericardial effusion. Procedure Staff Reading Group: [facility] Community Organizer: NETTIE Meeks, RDCS Ordering Physician: Rafael Robins MD Wall Motion Scores -1 - hyperkinesia, 0 - not evaluated, 1 - normal, 2 - hypokinesia, 3 - akinesia, 4 - dyskinesia Procedure Note Shara Martinez MD - 01/15/2025 1 1 [place] [facility] Heart Station [address] [place] [address] [phone] (fax) Echocardiogram-[facility] Name: ASYA ULLOA Study Date: 01/15/2025 09:13 AM B/P: 89 mmHg/71 mmHg HR: 70 bpm Date of : 1950 Location: [facility] Height: 65 in. Age: 74 year(s) Patient Room: [facility] Weight: 138 lb. Gender: Female Patient Status: [...] No pericardial effusion. Procedure Staff Reading Group: [facility] Community Organizer: NETTIE Meeks, RDCS Ordering Physician: Rafael Robins [...] - 10.60 10*3/uL 01/15/2025 6:09 AM EDT [facility] (BEJAZMIN) RBC 4.48 3.80 - 5.00 10*6/uL 01/15/2025 6:09 AM EDT [facility] ([facility]) Hemoglobin 13.6 12.0 - 15.0 g/dL 01/15/2025 6:09 AM EDT [facility] ([facility]) Hematocrit 45.2(H) 36.0 - 45.0 % 01/15/2025 6:09 AM EDT [facility] ([facility]) MCV 100.9(H) 82.0 - 98.0 fL 01/15/2025 6:09 AM EDT [facility] ([facility]) MCH 30.4 27.0 - 33.0 pg 01/15/2025 6:09 AM EDT [facility] ([facility]) MCHC 30.1(L) 32.0 - 35.0 g/dL 01/15/2025 6:09 AM EDT [facility] ([facility]) RDW 13.4 11.5 - 15.0 % 01/15/2025 6:09 AM EDT [facility] ([facility]) Platelets 176 150 - 400 10*3/uL 01/15/2025 6:09 AM EDT [facility] ([facility]) Blood Venous blood specimen / Unknown Venipuncture / Unknown 01/15/2025 5:23 AM EDT 01/15/2025 5:32 AM EDT us Rafia Roger [facility] LAB BLOOD ORDERABLES Final Re sult [facility] ([facility]) [address] [place] [address] * (ABNORMAL) Basic metabolic panel (01/15/2025 5:23 AM EDT) Only the most recent of3 resultswithin the time period is included. Sodium 133(L) 136 - 145 mmol/L 01/15/2025 5:55 AM EDT [facility] ([facility]) Potassium 4.7 3.5 - 5.1 mmol/L 01/15/2025 5:55 AM EDT [facility] ([facility]) Chloride 106 98 - 107 mmol/L 01/15/2025 5:55 AM EDT [facility] ([facility]) CO2 19(L) 21 - 31 mmol/L 01/15/2025 5:55 AM EDT [facility] ([facility]) BUN 16 7 - 25 mg/dL 01/15/2025 5:55 AM EDT [facility] ([facility]) Creatinine 0.84 0.60 - 1.20 mg/dL 01/15/2025 5:55 AM EDT [facility] ([facility]) Glucose 123(H) 70 - 100 mg/dL 01/15/2025 5:55 AM EDT [facility] ([facility]) Calcium 8.3(L) 8.6 - 10.3 mg/dL 01/15/2025 5:55 AM EDT [facility] ([facility]) Anion Gap 13 7 - 20 mmol/L 01/15/2025 5:55 AM EDT [facility] ([facility]) eGFR 72.0 >60.0 mL/min/1. 73m*2 01/15/2025 5:55 AM EDT [facility] ([facility]) Comment:[facility] s estimated glomerular filtration rate (eGFR) will [...] one group of individuals. BUN/Creatinine Ratio 19.0 06/0 11/2024 5:55 AM EDT [facility] ([facility]) Blood Venous blood specimen / Unknown Venipuncture / Unknown 01/15/2025 5:23 AM EDT 01/15/2025 5:31 AM EDT us Rafia Roger [facility] LAB BLOOD ORDERABLES Final Re sult [facility] ([facility]) [address] [place] [address] * TRANSESOPHAGEAL ECHO (HAROON) W/ LIMITED DOPPLER AND COLOR FLOW (01/14/2025 11:39 AM EDT) Anatomical Region Laterality Modality Other 01/14/2025 7:49 AM EDT Narrative 01/14/2025 3:59 PM EDT 1 [place] [facility] Heart Station [address] [place] [address] [phone] (fax) Transesophageal Echocardiogram-[facility] Name: ASYA ULLOA Study Date: 01/14/2025 07:49 AM B/P: 122 mmHg/67 mmHg HR: 71 bpm Date of : 1950 Location: [facility] Height: 65 in. Age: 74 year(s) Patient Room: 3186 Weight: 135 lb. Gender: Female Patient Status: InPt BSA: 1.67 m2 Indication: Mitral regurgitation, Mitral clip procedure Examination: HAROON/Limited Doppler/CFI Image Quality: Good Patient Consent: Informed, written consent was obtained for the procedure Exam Location: A HAROON was performed in the Document Restorer without complications Anesthesia Performed under General Anesthesia [...] post transseptal puncture. Procedure Staff Reading Group: [facility] Community Organizer: NETTIE Meeks, RDCS Ordering Physician: RAFIA ROGER Procedure Note Shara Martinez MD - 01/14/2025 1 [place] [facility] Heart Station [address] [place] [address] [phone] (fax) Transesophageal Echocardiogram-[facility] Name: ASYA ULLOA Study Date: 01/14/2025 07:49 AM B/P: 122 mmHg/67 mmHg HR: 71 bpm Date of : 1950 Location: [facility] Height: 65 in. Age: 74 year(s) Patient Room: 3186 Weight: 135 lb. Gender: Female Patient Status: InPt BSA: 1.67 m2 Indication: Mitral regurgitation, Mitral clip procedure Examination: HAROON/Limited Doppler/CFI Image Quality: Good Patient Consent: Informed, written consent was obtained for the procedure Exam Location: A HAROON was performed in the Document Restorer without complications Anesthesia Performed under General Anesthesia [...] post transseptal puncture. Procedure Staff Reading Group: [facility] Community Organizer: NETTIE Meeks, RDCS Ordering Physician: RAFIA ROGER [...] - 01/15/2025 6:43 AM EDT Qc lot [id number]; casting machine service operator [id number] Rafael Robins MD POINT OF CARE TEST [...] today for that purpose. PROCEDURES: Successful transcatheter nbrn-fo-zcde repair (ANA) of the mitral valve using XTW MitraClip device. Transseptal puncture performed under fluoroscopic and transesophageal echocardiography guidance. Preclosure in the right common femoral vein using two 6-Barbadian ProGlide devices. Access into the right and left common femoral vein under ultrasound guidance. OPERATORS: Interventional Iv Therapy Nurse: Rafael Robins MD. Window And Door Installer Interventional Iv Therapy Nurse: Chi Bejarano MD. Interventional Base Engineer: Dr Hunter Mittal. METHODS: Procedure was explained to the patient with risks and benefits. she signed informed consent. she was brought to laundry laborer in a fasting state. The procedure was performed in the cardiac laundry laborer under general anesthesia administered by the [...] the left common femoral vein and a 4-Barbadian x 11 cm sheath was placed in order to gain central venous access for administration of medications and fluids. Micropuncture technique and ultrasound guidance were used for access in the right common femoral vein and a 6-Barbadian x 11 cm sheath was placed. A preclosure in the right common femoral vein was performed using two 6-Barbadian ProGlide devices. The access sheath was then [...] at the end of the procedure. The 4-Barbadian left femoral venous sheath was removed and [...] Study Details Nonrheumatic mitral valve regurgitation [I34.0] us Rafia Roger CNP CV CARDIAC CATH PROCEDURES Fi nal Result * (ABNORMAL) CBC auto differential (01/14/2025 9:35 AM EDT) Auto WBC 4.84 4.00 - 10.60 10*3/uL 01/14/2025 9:48 AM EDT [facility] ([facility]) RBC 3.80 3.80 - 5.00 10*6/uL 01/14/2025 9:48 AM EDT [facility] ([facility]) Hemoglobin 11.8(L) 12.0 - 15.0 g/dL 01/14/2025 9:48 AM EDT [facility] ([facility]) Hematocrit 35.8(L) 36.0 - 45.0 % 01/14/2025 9:48 AM EDT [facility] ([facility]) MCV 94.2 82.0 - 98.0 fL 01/14/2025 9:48 AM EDT [facility] ([facility]) MCH 31.1 27.0 - 33.0 pg 01/14/2025 9:48 AM EDT [facility] ([facility]) MCHC 33.0 32.0 - 35.0 g/dL 01/14/2025 9:48 AM EDT [facility] ([facility]) RDW 13.4 11.5 - 15.0 % 01/14/2025 9:48 AM EDT [facility] ([facility]) Neutrophils % 61.6 40.0 - 72.0 % 01/14/2025 9:48 AM EDT [facility] ([facility]) Lymphocytes % 27.7 20.0 - 45.0 % 01/14/2025 9:48 AM EDT [facility] ([facility]) Monocytes % 8.3 5.0 - 12.0 % 01/14/2025 9:48 AM EDT [facility] ([facility]) Eosinophils % 1.4 0.0 - 6.0 % 01/14/2025 9:48 AM EDT [facility] ([facility]) Basophils % 0.6 0.0 - 1.0 % 01/14/2025 9:48 AM EDT [facility] ([facility]) Neutrophils Absolute 2.98 1.60 - 7.60 10*3/uL 01/14/2025 9:48 AM EDT [facility] ([facility]) Lymphocytes Absolute 1.34 1.20 - 4.00 10*3/uL 01/14/2025 9:48 AM EDT [facility] ([facility]) Monocytes Absolute 0.40 0.10 - 1.00 10*3/uL 01/14/2025 9:48 AM EDT [facility] ([facility]) Eosinophils Absolute 0.07 0.00 - 0.50 10*3/uL 01/14/2025 9:48 AM EDT [facility] ([facility]) Basophils Absolute 0.03 0.00 - 0.20 10*3/uL 01/14/2025 9:48 AM EDT [facility] ([facility]) Platelets 178 150 - 400 10*3/uL 01/14/2025 9:48 AM EDT [facility] ([facility]) nRBC % 0.0 0 % 01/14/2025 9:48 AM EDT [facility] ([facility]) Immature Granulocytes % 0.4 0.0 - 1.0 % 01/14/2025 9:48 AM EDT [facility] ([facility]) Immature Granulocytes Absolute 0.02 0.00 - 0.20 10*3/uL 01/14/2025 9:48 AM EDT [facility] ([facility]) Blood Venous blood specimen / Unknown Venipuncture / Unknown 01/14/2025 9:35 AM EDT 01/14/2025 9:35 AM EDT Rafael Robins MD LAB BLOOD ORDERABLES Final R esult [facility] ([facility]) [address] [place] [address] * Type and screen (01/14/2025 9:35 AM EDT) ABO Grouping O 01/14/2025 10:24 AM EDT [facility] BLOOD BANK Rh Type POS 01/14/2025 10:24 AM EDT [facility] BLOOD BANK Ab Scrn NEG 01/14/2025 10:24 AM EDT [facility] BLOOD BANK Blood Venous blood specimen / Unknown Venipuncture / Unknown 01/14/2025 9:35 AM EDT 01/14/2025 9:35 AM EDT us Rafael Robins MD LAB BLOOD BANK TEST ORDERABL ES Final Result [facility] BLOOD BANK * (ABNORMAL) POC Hb02% (01/14/2025 9:32 AM EDT) [id number]% 97.3(A) 90 - 95 % QC Pass/Fail Passed QC LOT # [id number] QC Expiration Date 73,126 SAMPLESITE nl Blood Venous blood specimen / Unknown 01/14/2025 9:32 AM EDT Jonas Hyde MT - 01/15/2025 6:28 AM EDT Iv Therapy Nurse [id number] Rafael Robins MD POINT OF CARE TEST ENTER/SHARON T ORDERABLES Final Result * ANESTHESIA ARTERIAL LINE PLACEMENT (01/14/2025 9:04 AM EDT) Lobo Hilliard MD - 01/14/2025 9:04 AM EDT Irving [...] no complications. Additional notes: [place] Staffing Performed: resident/SCRAP KETTLE TENDER/CAA Anesthesiologist: Lobo Machado MD Resident/SCRAP KETTLE TENDER: Margaret Briceno MD Performed by: Irving Mendoza MD Authorized by: Lobo Machado MD Lobo Machado MD ANESTHESIA ORDERABLES Final Re sult * ND AN ELECTIVE ENDOTRACHEAL AIRWAY (01/14/2025 8:52 AM EDT) Lobo Hilliard MD - 01/14/2025 8:52 AM EDT Irving Mendoza MD 01/14/2025 10:17 AM Airway Date/Time: 01/14/2025 8:52 AM Urgency: elective Airway not difficult General Information and Staff Patient location during procedure: [place] Anesthesiologist: Lobo Machado MD Resident/SCRAP KETTLE TENDER/CAA: Margaret Briceno MD Performed: resident/SCRAP KETTLE TENDER/CAA Indications and Patient Condition Indications for airway [...] - 105 mg/dL 01/14/2025 8:01 AM EDT [facility] ([facility]) Comment:[email or web address] Blood Capillary blood specimen / Unknown 01/14/2025 7:50 AM EDT 01/14/2025 8:01 AM EDT Narrative [facility] ([facility]) - 01/14/2025 8:01 AM EDT Waived Testing in the ED is performed under the ED CLIA certificate #[id number]. us Rafael Robins MD LAB BLOOD ORDERABLES Final R esult [facility] ([facility]) [address] [place] [address] * Protime-INR (01/14/2025 7:50 AM EDT) Protime 14.0 12.3 - 14.8 Seconds 01/14/2025 8:21 AM EDT [facility] ([facility]) INR 1.08 0.90 - 1.10 01/14/2025 8:21 AM EDT [facility] ([facility]) Comment: [facility] RECOMMENDED INR FOR WARFARIN THERAPY [...] MD LAB BLOOD ORDERABLES Final R esult [facility] (BEAKER) [address] [place] [address] * CARDIAC DEVICE CHECK - REMOTE - PACEMAKER (12/13/2024 11:53 AM EDT) [facility] BSA 1.68 m2 [facility] Marco Peguero MD CV IMPLANTABLE CARDIAC DEVICE ND OCEDURES Final Result [facility] * Cardiac device check - Remote pacemaker (12/04/2024 12:00 AM EDT) Anatomical Region Laterality Modality Other 12/04/2024 Marco Peguero MD CV IMPLANTABLE CARDIAC DEVICE ND OCEDURES Final Result * TRANSESOPHAGEAL ECHO (HAROON) W/ LIMITED DOPPLER AND COLOR FLOW (11/29/2024 9:47 AM EDT) Anatomical Region Laterality Modality Other 11/29/2024 8:58 AM EDT Narrative 11/29/2024 3:35 PM EDT 1 [place] [facility] Heart Station [address] [place] [address] [phone] (fax) Transesophageal Echocardiogram-[facility] Name: ASYA ULLOA Study Date: 11/29/2024 08:58 AM B/P: 137 mmHg/62 mmHg HR: Date of : 1950 Location: [facility] Height: 65 in. Age: 74 year(s) [...] Location: A HAROON was performed in the Document Restorer without complications Anesthesia Pharyngeal anesthesia with viscous [...] No pericardial effusion. Procedure Staff Reading Group: [facility] Community Organizer: Bigg Bill RDCS Ordering Physician: MARCO PEGUERO MD Procedure Note Shara Martinez MD - 11/29/2024 1 [place] [facility] Heart Station [address] [place] [address] [phone] (fax) Transesophageal Echocardiogram-[facility] Name: ASYA ULLOA Study Date: 11/29/2024 08:58 AM B/P: 137 mmHg/62 mmHg HR: Date of : 1950 Location: [facility] Height: 65 in. Age: 74 year(s) [...] Location: A HAROON was performed in the Document Restorer without complications Anesthesia Pharyngeal anesthesia with viscous [...] No pericardial effusion. Procedure Staff Reading Group: [facility] Community Organizer: Bigg Bill RDCS Ordering Physician: MARCO PEGUERO MD Marco Peguero MD CV ECHO PROCEDURES Final Result from Last 3 Months Insurance [facility] Advance Directives * Full Code (Latest Code Status on File) Date Activated Date Inactivated Comments 01/14/2025 2:43 PM 01/15/2025 7:02 PM * Full Code Date Activated Date Inactivated Comments 01/14/2025 2:43 PM 01/14/2025 2:43 PM Care Teams Broadcast Operations Technician Relationship Specialty Start Date End Date Hannah Brian MD [address] [place] [address] PCP - General Family Medicine 11/03/23
--- OUTSIDE RECORDS SUMMARY | 2025-01-30 10:00 | XMS_ITS | Encounter Summary ---
Author Organization [facility] Address [address] [facility] [place] [address] Care Team Providers Care Stenocaptioner Name Role Phone Isaac Nazario MD Unavailable [phone] Isaac Nazario MD Primary Care Provider [phone] Hannah Brian MD Primary Care Provider [phone] Encounter Details Date Type Department Care Team [...] 04/09/2025 3:20 PM EDT Office Visit [facility] [address] [place] [address] Hannah Brian MD [address] [place] [address] documented as of this encounter Procedures Procedure Name Priority Date/Time Associated Diagnosis Comments RT PULMONARY FUNCTION TEST 10/18/2023 8:58 AM EST documented in this encounter Results * RT PULMONARY FUNCTION TEST (10/18/2023 8:58 AM EST) Anatomical Region Laterality Modality Other 10/18/2023 8:58 AM EST Narrative 10/18/2023 6:26 PM EST The [address] [address] Respiratory Report Signed Patient: ASYA ULLOA I MR#: [id number] : 1950 Acct:[id number] Age/Sex: 73 / F ADM Date: 10/18/23 Loc: CARD Attending Dr: Non-Staff Physician Pedro Ordering Physician: PhysicianConradoStaff Pedro Date of Service: 10/18/23 Procedure(s): RT pulmonary function test Accession Number(s): [id number] cc: [facility] Test Date: 2023-10-18 Pat Name: ASYA ULLOA Department: Room: - Gender: Female Street Inspector: Dave Arreola RRT : 1950 Requested By: [id number] Order Number: [id number] Reading MD: Barrington Rosa Interpretive Statements Spirometry was completed according to ATS criteria. Findings were considered accurate and reproducible. No bronchodilator, lung volumes, or diffusion capacity were ordered. Spirometry: -FEV1/FVC: Low normal @ 73% -FEV1: Normal @ 88% -FVC: Normal @ 91% Flow-volume loop: -Mild obstructive pattern Impressions: -Spirometry trends towards a mild obstruction pattern. Consider full PFT depending on clinical status. Clinical correlation required. Electronically Signed On 10-18-2023 18:26:31 EST by Barrington Rosa Dictated By: Barrington Rosa D.O. Signed By: 10/18/23 1826 DD/ 0858 TD/TT: Education Trainer: Procedure Note Radiology, Radiologist, - 10/18/[address] [address] Respiratory Report Signed Patient: ASYA ULLOA IMR#: [id number] : 8Acct:[id number] Age/Sex: 73 / FADM Date: 10/18/23 Loc: CARD Attending Dr: Non-Staff Physician Pedro Ordering Physician: PhysicianConradoStaff Pedro Date of Service: 10/18/23 Procedure(s): RT pulmonary function test Accession Number(s): [id number] cc: [facility] Test Date: 2023-10-18 Pat Name: ASYA ULLOA Department: Room: - Gender: Female Street Inspector: Dave Arreola RRT : 1950 Requested By: [id number] Order Number: [id number] Reading MD: Barrington Rosa Interpretive Statements Spirometry was completed according to ATS criteria. Findings wereconsidered accurate and reproducible. No bronchodilator, lung volumes, or diffusion capacity were ordered. Spirometry: -FEV1/FVC: Low normal @ 73% -FEV1: Normal @ 88% -FVC: Normal @ 91% Flow-volume loop: -Mild obstructive pattern Impressions: -Spirometry trends towards a mild obstruction pattern. Consider full PFT depending on clinical status. Clinical correlation required. Electronically Signed On 10-18-2023 18:26:31 EST by Barrington Rosa Dictated By: Barrington Rosa D.O. Signed By:10/18/23 1826 DD/ 0858 TD/TT: Education Trainer: us Generic External Data Provider [facility] Final Result documented in this encounter Visit Diagnoses Not on filedocumented in this encounter Care Teams Stenocaptioner Relationship Specialty Start Date End Date Isaac Nazario MD [address] [place] [address] PCP - ACO Reach 01/05/23 Isaac Nazario MD [address] [place] [address] PCP - General Family Medicine 02/08/23 11/02/23 Hannah Brian MD [address] [place] [address] PCP - General Family Medicine 11/03/23 documented as of this encounter
--- OUTSIDE RECORDS SUMMARY | 2025-01-30 10:00 | XMS_ITS | Encounter Summary ---
Author Organization [facility] Address [address] [place] [address] Care Team Providers Care Grades 1 Thru 6 Home Teacher Name Role Phone Hannah Brian MD Primary Care Provider Encounter Details Date Type Department Care Team (Late st Contact Info) Description 12/04/2024 Orders Only [facility] Card[facility] [address] [place] [address] Marco Peguero MD [address] [place] [address] Social History Tobacco Use Types Packs/Day Years Used Date Smoking Tobacco: Former Cigarettes Passive Smoke Exposure: Past Smokeless Tobacco: Never Passive Exposure Comments:so cial smoker stopped in 1989 Alcohol Use Standard Drinks/Week Comments Never 0 (1 standard drink = 0.6 oz pur e alcohol) PHQ-2 Answer Date Recorded Patient Health Questionnaire-2 Score 0 02/22/2024 [place] Safety & Environment Answer Date Rec orded Fear of Current or Ex-Partner Not on file Emotionally Abused Not on file 10/05/2023 Physically Abused Not on file 10/05/2023 Sexually Abused Not on file 10/05/2023 Physically or Sexually Abused Not on file Comments No Sex and Gender Information Value Date Recorded Sex Assigned at Not on file Legal Sex Female 2:11 PM EST Gender Identity Not on file Sexual Orientation Not on file documented as of this encounter Plan of Treatment Upcoming Encounters Date Type Department Care Team (Late st Contact Info) Description 02/10/2025 1:45 PM EDT Follow-Up [facility] [address] [place] [place] [address] Rafael Robins MD [address] [facility] [place] [address] 02/18/2025 3:45 PM EDT Ancillary Procedure [facility] [address] [place] [facility] [place] [address] documented as of this encounter Procedures Procedure Name Priority Date/Time Associated Diagnosis Comments CARDIAC DEVICE CHECK - REMOTE - PACEMAKER Routine 12/04/2024 12:00 AM EDT documented in this encounter Results * Cardiac device check - Remote pacemaker (12/04/2024 12:00 AM EDT) Anatomical Region Laterality Modality Other 12/04/2024 us Marco Peguero MD CV IMPLANTABLE CARDIAC DEVICE VA OCEDURES Final Result documented in this encounter Visit Diagnoses Not on filedocumented in this encounter Care Teams Grades 1 Thru 6 Home Teacher Relationship Specialty Start Date End Date Hannah Brian MD [address] [place] [address] PCP - General Family Medicine 11/03/23 documented as of this encounter
--- OUTSIDE RECORDS SUMMARY | 2025-01-30 10:00 | XMS_ITS | Encounter Summary ---
Author Organization [facility] Address [address] [place] [address] Care Team Providers Care Wafer Line Worker Name Role Phone Hannah Brian MD Primary Care Provider [phone] Encounter Details Date Type Department Care Team (Late st Contact Info) Description 01/13/2025 Orders Only [facility] Pre-Anesthesia Clinic [address] [place] [id number] Niecy Benito, RN Social History Tobacco Use Types Packs/Day Years Used Date Smoking Tobacco: Former Cigarettes Passive Smoke Exposure: Past Smokeless Tobacco: Never Passive Exposure Comments:so cial smoker stopped in 1989 Alcohol Use Standard Drinks/Week Comments Never 0 (1 standard drink = 0.6 oz pur e alcohol) [facility] Utilities Answer Date Recorded In the past 12 months has e Happy Inspector, gas, oil, or water [employer] threatened to shut off services in your [...] were you homeless or living in a penitentiary (including now)? No 01/14/2025 Hunger Vital Sign [...] on file documented as of this encounter Functional Status * Calculated C-SSRS Risk Score (Lifetime/Recent) Answer Date of Assessment Author No Risk Indicated 01/14/2025 5:12 PM EDT Yudith Campos RN * Suicidal Ideation Question Answer Date of Assessment Author 1. Wish to be (Lifetime) No 01/14/2025 5:12 PM EDT Yudith Campos RN 2. Non-Specific Active Suici willam Thoughts (Lifetime) No 01/14/2025 5:12 PM EDT Yudith Campos R N * Suicidal Behavior Question Answer Date of Assessment Author Actual Attempt (Lifetime) No 01/14/2025 5:12 PM EDT Yudith Campos RN Has subject engaged in non-s uicidal self-injurious behavior? (Lifetime) No 01/14/2025 5:12 PM EDT Yudith Mae RN Interrupted Attempts (Lifetime) No 5:12 PM EDT Yudith Campos RN Aborted or Self-Interrupted Attempt (Lifetime) No 01/14/2025 5:12 PM EDT Yudith Campos R N Preparatory Acts or Behavior (Lifetime) No 01/14/2025 5:12 PM EDT Yudith Campos R N documented as of this encounter Plan of Treatment Upcoming Encounters Date Type Department Care Team (Late st Contact Info) Description 02/10/2025 1:45 PM EDT Follow-Up [place] [address] [facility] [place] [address] Rafael Robins MD [address] [facility] [address] [facility] [place] [id number] 02/18/2025 3:45 PM EDT Ancillary Procedure [facility] [address] [place] [address] documented as of this encounter Visit Diagnoses Not on filedocumented in this encounter Care Teams Wafer Line Worker Relationship Specialty Start Date End Date Hannah Brian MD [address] [place] [address] PCP - General Family Medicine 11/03/23 documented as of this encounter
--- OUTSIDE RECORDS SUMMARY | 2025-01-30 10:00 | XMS_ITS | Clinical Summary ---
Author Organization [facility] Address [address] [place] [address] Care Team Providers Care Crystal Cutter Name Role Phone Irving Sorto MD Unavailable [phone] Johan Mireles MD Unavailable [phone] Isaac Nazario MD Primary Care Provider [phone] Allergies Active Allergy Reactions Criticality Noted Date Comments Cephalexin Unknown 01/30/2023 Meperidine Other: See Comments 05/14/2010 Patient does not know if she is allergic but know she is not suppose to take it. Egg Intolerance,GI Upset 08/29/2023 Per patient. Morphine Unknown 04/12/2023 Other Reaction(s): Unknown cause Sulfa (Sulfonamide Antibiotics) Intolerance 07/25/2023 Medications LORazepam (ATIVAN) 1 mg tablet Take 1 mg by mouth every 6 hours as needed for anxiety. Active apixaban (ELIQUIS) 5 mg tab(s) Take 1 tablet by mouth two times a day. 120 tablet 1 08/31/2023 3:20 PM EST 4 Active atorvastatin (LIPITOR) 40 mg tablet Take 1 tablet by mouth daily at bedtime. 180 tablet 1 08/31/2023 3:20 PM EST 4 Active carvedilol (COREG) 12.5 mg tablet Take 1 tablet by mouth two times a day with meals. 180 tablet 1 08/31/2023 3:20 PM EST 4 Active polyethylene glycol 3350 17 gram/dose powder Take 17 g by mouth once daily as needed. Dissolve dose in 4 - 8 ounces of liquid and take as directed. 510 g 1 4 Active spironolactone (ALDACTONE) 25 mg tablet Take a half tablet by mouth once daily. 30 tablet 1 08/31/2023 3:20 PM EST 4 Active digoxin (LANOXIN) 125 mcg (0.125 mg) tablet Take HALF tablet by mouth daily (not one complete tablet) 30 tablet 1 08/31/2023 3:20 PM EST 4 Active carvedilol (COREG) 12.5 mg tablet Take 12.5 mg by mouth. 4 Active lisinopril (ZESTRIL) 10 mg tabletIndications:N on-rheumatic mitral regurgitation,Persi stent atrial fibrillation (HCC),Non-ischemic cardiomyopathy (HCC),Chronic HFrEF (heart failure with reduced ejection fraction) (HCC) take 1/2 tablet by mouth once daily 45 tablet [address] (PROTONIX) 40 mg tabletIndications:N on-rheumatic mitral regurgitation,Persi stent atrial fibrillation (HCC),Non-ischemic cardiomyopathy (HCC),Chronic HFrEF (heart failure with reduced ejection fraction) (HCC) take 1 tablet by mouth every day 90 tablet 4 Active carvedilol (COREG) 6.25 mg tablet Take 6.25 mg by mouth two times a day with meals. Active Active Problems Problem Noted Date Diagnosed Date Severe protein-calorie malnutrition 08/30/2023 Adjustment disorder with mixed anxiety and depre ssed mood 08/29/2023 Generalized anxiety disorder 08/29/2023 Atrial fibrillation, persistent 08/27/2023 Anxiety 08/27/2023 Urethral stricture 08/27/2023 Primary hypertension 08/27/2023 Cardiomyopathy, nonischemic 08/26/2023 Mitral valve regurgitation due to cardiomyopathy 08/24/2023 Non-rheumatic mitral regurgitation 07/25/2023 Nonrheumatic tricuspid valve regurgitation 07/25 Incomplete bladder emptying 09/26/2012 Unspecified intestinal obstruction 03/13/2009 Resolved Problems Problem Noted Date Diagnosed Date Resolved Date Acute on chronic systolic co ngestive heart failure 08/26/2023 08/27/2023 Family History Medical History Relation Comments Heart disease Father Diabetes Mother Heart disease Mother Relation Status Comments Father Mother Social History Tobacco Use Types Packs/Day Years Used Date Smoking Tobacco: Former Smokeless Tobacco: Never Tobacco Cessation:Counseling Given: Not Answered Comments:Quit 1996. social smoker mostly Alcohol Use Standard Drinks/Week Comments Not Currently 0 (1 standard drink = 0.6 oz pur e alcohol) Area Deprivation Index Answer Date Cecilio rded National Score (1-100), lower number is lower ri sk 53 05/07/2024 State Score (1-10), lower number is lower risk 3 05/07/2024 Data from: https://www.neighborhoodatlas.medicine.[facility]/. Last address used for calculation [address] 05/07/2024 Comments No Sex and Gender Information Value Date Recorded Sex Assigned at Not on file Legal Sex Female 8:58 AM EST Gender Identity Not on file Sexual Orientation Not on file Last Filed Vital Signs Vital Sign Reading Time Taken Comments Blood Pressure 149/60 06/27/2024 11:13 AM EST Pulse 83 06/27/2024 11:13 AM EST Temperature 35.9 C (96.6 F) 06/27/2024 11:13 AM EST Respiratory Rate 20 09/26/2023 9:13 AM EST Oxygen Saturation 98% 09/26/2023 9:13 AM EST Inhaled Oxygen Concentration - - Weight 54.4 kg (120 lb) 06/27/2024 11:13 AM EST Height 165.1 cm (5' 5 ) 09/26/2023 9:13 AM EST Body Mass Index 19.97 09/26/2023 9:13 AM EST Plan of Treatment Health Maintenance Due Date Last Done Comments Annual PCP Team Chronic Dise ase Visit 1966 Depression Screening 1966 Hepatitis C Screening 1966 Pneumococcal Vaccine: 50+ (1 of 1 - PCV) 1998 Shingrix Vaccine (1 of 2) 1998 Medicare Annual Wellness Visit 03/14/2013 Bone Density Screening 2013 RSV Vaccine (1 - 1-dose 75+ series) 2023 Covid-19 Vaccine ( - 2023-2 5 season) 2024 Advance Directive Discussion 08/14/2024 Influenza Vaccine (Season Ended) 2025 Diabetes Screening 02/21/2027 02/22/2024, 0 09/26/2023, 08/31/2023, Additional history exists DTaP,Tdap,Td Vaccine (5 - Td or Tdap) 01/30/2028 01/29/2018, 02/16/2016, 12/14/2009, Additional history exists Colonoscopy Discontinued 02/15/2018, 0712/2017, 04/23/2009, Additional history exists Colorectal Cancer Screening Discontinued Mammogram Screening Discontinued 12/05/2022, 12/05/2022, 09/19/2022, Additional history exists CT Colonography Discontinued Cologuard (FIT-DNA) Discontinued Fecal Occult Blood Discontinued Sigmoidoscopy Discontinued Goals Goal Patient Goal Type Associated Problems Recent Progress Patient-Stated? Author Blood Pressure < 130/80 Blood Pressure 149/60( 024 11:13 AM EST) No Benitez Dudley APRN.BOTTLING EQUIPMENT SALES REPRESENTATIVE Procedures Procedure Name Priority Date/Time Associated Diagnosis Comments COMPREHENSIVE METABOLIC PANEL Routine 09/26/2023 11:20 AM EST Non-rheumatic mitral regurgitation Atrial fibrillation, unspecified type (HCC) Non-ischemic cardiomyopathy (HCC) COLONOSCOPY - DIAGNOSTIC 02/15/2018 10:06 AM EDT from Last 3 Months or Most Recently Relevant to Health Maintenance Results * (ABNORMAL) COMP METABOLIC PANEL (09/26/2023 11:20 AM EST) Protein, Total 6.4 6.3 - 8.0 g/dL 09/26/2023 1:52 PM EST [facility] Albumin 4.2 3.9 - 4.9 g/dL 09/26/2023 1:52 PM EST [facility] Calcium, Total 9.6 8.5 - 10.2 mg/dL 09/26/2023 1:52 PM EST [facility] Bilirubin, Total 0.6 0.2 - 1.3 mg/dL 09/26/2023 1:52 PM EST [facility] Alkaline Phosphatase 57 34 - 123 U/L 09/26/2023 1:52 PM EST [facility] AST 29 13 - 35 U/L 09/26/2023 1:52 PM EST [facility] ALT 36 7 - 38 U/L 09/26/2023 1:52 PM [facility] Glucose 129(H) 74 - 99 mg/dL 09/26/2023 1:52 PM [facility] Comment: The [place] Diabetes Association (ADA) provides guidance for cutoff [...] Standards of Medical Care in Diabetes 2016, [place] Diabetes Association. Diabetes Care. 2016.39(Suppl 1). BUN 15 7 - 21 mg/dL 09/26/2023 1:52 PM [facility] Creatinine 0.82 0.58 - 0.96 mg/dL 09/26/2023 1:52 PM [facility] Sodium 139 136 - 144 mmol/L 09/26/2023 1:52 PM [facility] Potassium 4.3 3.7 - 5.1 mmol/L 09/26/2023 1:52 PM [facility] Chloride 100 97 - 105 mmol/L 09/26/2023 1:52 PM [facility] CO2 29 22 - 30 mmol/L 09/26/2023 1:52 PM [facility] Anion Gap 10 9 - 18 mmol/L 09/26/2023 1:52 PM [facility] Estimated Glomerular Filtration Rate 75 >=60 mL/min/1.7 3m 09/26/2023 1:52 PM [facility] Comment:Estimated Glomerular Filtration Rate (eGFR) is calculated using the 2020 CKD-EPI creatinine equation. This equation utilizes serum creatinine, sex, and age as parameters. The creatinine assay has traceable calibration to isotope dilution- mass spectrometry. Refer to KDIGO guidelines for clinical interpretation. In patients with unstable renal function, e.g. those with acute kidney injury, the eGFR may not accurately reflect actual GFR. Blood BLOOD SPECIMEN / Unknown Venipuncture / Unknown 09/26/2023 11:20 AM EST 09/26/2023 11:20 AM EST us Dick Singh MD LABORATORY Final Result [facility] [address] [facility] [address] [place] [address], [place] * COLONOSCOPY - DIAGNOSTIC (02/15/2018 10:06 AM EDT) Expense Analyst A30 Gastrointestinal Endoscopy Patient Name: Asya Asencio Procedure Date: 02/15/2018 10:06 AM Date of : 1950 Admit Type: Outpatient Age: 67 Gender: Female Note Status: Finalized Attending MD: Asa Macdonald MD Sedation Initiated: 10.24 AM Procedure: Colonoscopy Indications: Screening for colorectal malignant neoplasm Providers: Asa Macdonald MD Patient Profile: Last Colonoscopy: several years ago. Referring Physician: Medicines: Midazolam 2 mg IV Complications: No immediate complications. Requesting Provider: Procedure: Pre-Anesthesia Assessment: - Prior to the procedure, a History and Physical was performed, and patient medications and allergies were reviewed. The patient's tolerance of previous anesthesia was also reviewed. The risks and benefits of the procedure and the sedation options and risks were discussed with the patient. All questions were answered, and informed consent was obtained. Prior Anticoagulants: The patient has taken no previous 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 or antiplatelet agents. ASA Grade Assessment: II - A patient with mild systemic disease. After reviewing the risks and benefits, the patient was deemed in satisfactory condition to undergo the procedure. After I obtained informed consent, the scope was passed under direct vision. Throughout the procedure, the patient's blood pressure, pulse, and oxygen saturations were monitored continuously. The Colonoscope was introduced through the anus and advanced to the cecum, identified by appendiceal orifice and ileocecal valve. The ileocecal valve and the appendiceal orifice were photographed. The colonoscopy was performed without difficulty. The patient tolerated the procedure well. The quality of the bowel preparation was excellent. Findings: The entire examined colon appeared normal. Impression: - The entire examined colon is normal. - No specimens collected. Estimated Blood Loss: Estimated blood loss: none. Recommendation: - Resume regular diet today. - Continue present medications. - Repeat colonoscopy in 5 years for surveillance. - Patient has a contact number available for emergencies. The signs and symptoms of potential delayed complications were discussed with the patient. Return to normal activities tomorrow. Written discharge instructions were provided to the patient. Attending Participation: I personally performed the entire procedure. Scope In: 10:25:24 AM Scope Out: 10:40:30 AM Asa Macdonald MD 02/15/2018 10:46:43 AM This report has been signed electronically. Number of Addenda: 0 Note Initiated On: 02/15/2018 10:06 AM [facility] Anatomical Region Laterality Modality Other 02/15/2018 10:0 6 AM EDT [facility] Provider [facility] Final Result from Last 3 Months or Most Recently Relevant to Health Maintenance Insurance [address] [place] [address] MEDICARE ANTHEM MEDICARE SUPPLEMENT Advance Directives * Full Code (Latest Code Status on File) Date Activated Date Inactivated Comments 08/24/2023 8:43 PM 08/31/2023 9:57 PM Question Answer Comments Full Code Order Discussed With: Patient Care Teams Crystal Cutter Relationship Specialty Start Date End Date Isaac Nazario MD [address] [place] [address] PCP - General Family Medicine 07/24/23 Irving Sorto MD [address] [place] [address] Surgeon Cardiac Surg 07/24/23 Johan Mireles MD [address] [place] [address] Station Repairer Cardiology 07/24/23
--- OUTSIDE RECORDS SUMMARY | 2025-01-30 10:00 | XMS_ITS | Encounter Summary ---
Author Organization [facility] Address [address] [place] [address] Care Team Providers Care Church Supervisor Name Role Phone Isaac Nazario MD Primary Care Provider [phone] Irving Sorto MD Unavailable [phone] Johan Mireles MD Unavailable [phone] Isaac Nazario MD Primary Care Provider [phone] Dick Singh MD Unavailable Unavailable Dick Singh MD Unavailable Unavailable Source Comments In the event this information is protected by the Federal Confidentiality of Alcohol and Drug AbusePatient Records regulations: The Federal rules restrict any use of the information to criminally investigate or prosecute any alcohol or drug abuse patient.[facility] Encounter Details Date Type Department Care Team (Late st Contact Info) Description 02/23/2018 Letters (in) Colorectal Surgery [address] [place] [id number] Asa Macdonald MD [address] [place] [address] Social History Tobacco Use Types Packs/Day Years Used Date Smoking Tobacco: Former Smokeless Tobacco: Never Comments:Quit 1996. social s moker mostly Alcohol Use Standard Drinks/Week Comments Yes 0 (1 standard drink = 0.6 oz pur e alcohol) occas Comments No Sex and Gender Information Value Date Recorded Sex Assigned at Not on file Legal Sex Female 8:58 AM EST Gender Identity Not on file Sexual Orientation Not on file documented as of this encounter Miscellaneous Notes * Letter - Asa Macdonald - 02/23/2018 12:00 AM EDT February 23, 2018 Asya Ruiz [address], [place] [address] NAME: ASYA ASENCIO I CLINIC NO.: [id number] DATE OF SERVICE: 02/23/2018 Dear Mrs. Asencio: This is a note regarding the colonoscopy done for you on the February 15, 2018. The indication was to screen your colon. The colon looked completely normal and I have recommended another check in 5 years. With kind regards. Yours sincerely, Asa Macdonald MD Department of Colorectal Surgery Date Dictated: 02/23/2018 Date Typed: [facility] 02/24/2018 JOB# [id number] documented in this encounter Plan of Treatment Not on file documented as of this encounter Visit Diagnoses Not on filedocumented in this encounter Care Teams Church Supervisor Relationship Specialty Start Date End Date Isaac Nazario MD PCP - General 10/28/05 07/23/23 Isaac Nazario [place] [address] PCP - General Family Medicine 07/24/23 Irving Sorto MD [address] [place] [address] Surgeon Cardiac Surg 07/24/23 Johan Mireles MD [facility] [place] [address] [place] Drill Operator Cardiology 07/24/23 Dick Singh MD [address] [place] [address] Cardiology 07/28/23 06/02/24 Dick Singh MD [address] [place] [address] Primary Staff Physician Cardiology 08/23/23 documented as of this encounter
--- OUTSIDE RECORDS SUMMARY | 2025-01-30 10:00 | XMS_ITS | Encounter Summary ---
Author Organization [facility] Address [address] [facility] [place] [address] Care Team Providers Care Pipefitter Welder Name Role Phone Isaac Nazario MD Unavailable [phone] Isaac Nazario MD Primary Care Provider [phone] Hannah Brian MD Primary Care Provider [phone] Encounter Details Date Type Department Care Team [...] [facility] [address] [place] [address] Hannah Brian MD [address] [place] [address] documented as of this encounter Procedures Procedure Name Priority Date/Time Associated Diagnosis Comments [facility] NT-PROBNP SERPL-MCNC Routine 08/23/2023 11:44 AM EST [facility] CBC PNL BLD AUTO Routine 08/23/2023 11:44 AM EST [facility] COMP METAB 2000 PNL SERPL Routine 08/23/2023 11:44 AM EST [facility] CREATININE BLD Routine 08/23/2023 8: 13 AM EST CTA CHEST (GATED) W IVCON 08/23/2023 7:47 AM EST documented in this encounter Results * (ABNORMAL) [facility] COMP METAB 2000 PNL SERPL (08/23/2023 11:44 AM EST) [facility] PROT SERPL-MCNC 6.8 6.3 - 8.0 g/dL CCF CCF ALBUMIN SERPL-MCNC 4.4 3.9 - 4.9 g/dL CCF CCF CALCIUM SERPL-MCNC 9.8 8.5 - 10.2 mg/dL CCF CCF BILIRUB SERPL-MCNC 0.8 0.2 - 1.3 mg/dL CCF CCF ALP SERPL-CCNC 66 34 - 123 U/L CCF CCF AST SERPL-CCNC 31 13 - 35 U/L CCF CCF ALT SERPL-CCNC 40(H) 7 - 38 U/L CCF CCF GLUCOSE SERPL-MCNC 127(H) 74 - 99 mg/dL CCF Comment: The [place] Diabetes Association (ADA) provides guidance for cutoff [...] Standards of Medical Care in Diabetes 2016, [place] Diabetes Association. Diabetes Care. 2016.39(Suppl 1). [facility] BUN SERPL-MCNC 17 7 - 21 mg/dL CCF C[facility] CREAT SERPL-MCNC 0.98(H) 0.58 - 0.96 mg/dL CCF CCF SODIUM SERPL-SCNC 139 136 - 144 mmol/L CCF CCF POTASSIUM SERPL-SCNC 4.1 3.7 - 5.1 mmol/L CCF CCF CHLORIDE SERPL-SCNC 98 97 - 105 mmol/L CCF CCF CO2 SERPL-SCNC 32(H) 22 - 30 mmol/L CCF CCF ANION GAP SERPL-SCNC 9 9 - 18 mmol/L CCF CCF CREATININE + EGFR PNL SERPLBLD 60 >=60 mL/min/1. 73m??? CCF Comment:Estimated Glomerular Filtration Rate (eGFR) is calculated using the 2020 CKD-EPI creatinine equation. This equation utilizes serum creatinine, sex, and age as parameters. The creatinine assay has traceable calibration to isotope dilution- mass spectrometry. Refer to KDIGO guidelines for clinical interpretation. In patients with unstable renal function, e.g. those with acute kidney injury, the eGFR may not accurately reflect actual GFR. 08/23/2023 11:4 4 AM EST 08/23/2023 12:11 PM EST Narrative THOMAS - 08/23/2023 12:50 PM EST Specimen Type: BLOOD SPECIMEN Ordering Facility: [facility] Address: [address] [place], [place] [id number] Original Ordering Provider: YECENIA GLEZ us Generic External Data Provider THOMAS cruz Result [facility] [address] [facility] [address] [place] [address] * (ABNORMAL) CCF NT-PROBNP SERPL-MCNC (08/23/2023 11:44 AM EST) CCF NT-PROBNP SERPL-MCNC 3,265(H) <450 pg/mL CCF 08/23/2023 11:4 4 AM EST 08/23/2023 12:11 PM EST Narrative CLINISYNC - 08/23/2023 12:50 PM EST Specimen Type: BLOOD SPECIMEN Ordering Facility: [facility] Address: [address] [place] [address] Original Ordering Provider: YECENIA GLEZ us Generic External Data Provider [facility] F inal Result [facility] [address] [facility] [address] [place] [address] * CCF CBC PNL BLD AUTO (08/23/2023 11:44 AM EST) Pathologist [facility] CCF WBC # BLD AUTO 6.24 3.70 - 11.00 k/uL CCF CCF RBC # BLD AUTO 4.75 3.90 - 5.20 m/uL CCF CCF HGB BLD-MCNC 14.4 11.5 - 15.5 g/dL CCF CCF HCT VFR BLD AUTO 43.4 36.0 - 46.0 % CCF CCF MCV RBC AUTO 91.4 80.0 - 100.0 fL CCF CCF MCH RBC QN AUTO 30.3 26.0 - 34.0 pg CCF CCF MCHC RBC AUTO-MCNC 33.2 30.5 - 36.0 g/dL CCF CCF RDW RBC-RTO 12.9 11.5 - 15.0 % CCF CCF PLATELET # BLD AUTO 215 150 - 400 k/uL CCF CCF PMV BLD AUTO 10.5 9.0 - 12.7 fL CCF CCF NRBC # BLD AUTO <0.01 <0.01 k/uL [facility] 08/23/2023 11:4 4 AM EST 08/23/2023 12:11 PM EST Narrative CLINISYNC - 08/23/2023 12:22 PM EST Specimen Type: BLOOD SPECIMEN Ordering Facility: [facility] Address: [address] [place] [address] Original Ordering Provider: YECENIA GLEZ Generic External Data Provider THOMAS cruz Result Performing Organization Address [facility] de Phone Number THOMAS JOHNSON [address] [place] [phone] * (ABNORMAL) [facility] CREATININE BLD (08/23/2023 8:13 AM EST) C[facility] CREAT SERPL-MCNC 0.97(H) 0.58 - 0.96 mg/dL CCF CCF CREATININE + EGFR PNL SERPLBLD 61 >=60 mL/min/1.7 3m??? CCF Comment:Estimated Glomerular Filtration Rate (eGFR) is calculated using the 2020 CKD-EPI creatinine equation. This equation utilizes serum creatinine, sex, and age as parameters. The creatinine assay has traceable calibration to isotope dilution- mass spectrometry. Refer to KDIGO guidelines for clinical interpretation. In patients with unstable renal function, e.g. those with acute kidney injury, the eGFR may not accurately reflect actual GFR. 08/23/2023 8:13 AM EST 08/23/2023 9:43 AM EST Narrative CLINISYAL - 08/23/2023 2:51 PM EST Specimen Type: BLOOD SPECIMEN Ordering Facility: [facility] Address: [address] [place] [address] Original Ordering Provider: MICHELINE BARRIGA Generic External Data Provider THOMAS cruz Result Performing Organization Address [facility] de Phone Number [facility] [address] [address] * CTA CHEST (GATED) W IVCON (08/23/2023 7:47 AM EST) Anatomical Region Laterality Modality Other 08/23/2023 7:47 AM EST Narrative 08/23/2023 12:16 PM EST * * *Final Report* * * DATE [...] AORTIC DIMENSIONS: AORTIC ROOT: 3.5 cm measured qqqgf-vk-avekf Area cm2 mid ASCENDING THORACIC AORTA: 2.9 cm Area cm2 mid DESCENDING THORACIC AORTA: 2.2 cm limited upper ABDOMEN: unremarkable BONES: Unremarkable Ornamental Iron Worker Helper (topogram) images: No additional findings. IMPRESSION: Dilated left ventricle, biatrial enlargement. Mitral valve is noncalcified. Normal caliber thoracic aorta. Teaching Manager: LILIANA Transcribe Date/Time: Aug 23 2023 11:20A Dictated by : SARAH CARNEY MD This examination was interpreted and the report reviewed and electronically signed by: SARAH CARNEY MD on Aug 23 2023 12:14PM EST [id number]^ACN Procedure Note Radiology, Radiologist, - 08/23/2023 * * *Final Report* * * DATE [...] AORTIC DIMENSIONS: AORTIC ROOT: 3.5 cm measured lnnss-vb-trydl Area cm2 mid ASCENDING THORACIC AORTA: 2.9 cm Area cm2 mid DESCENDING THORACIC AORTA: 2.2 cm limited upper ABDOMEN: unremarkable BONES: Unremarkable Ornamental Iron Worker Helper (topogram) images: No additional findings. IMPRESSION: Dilated left ventricle, biatrial enlargement. Mitral valve is noncalcified. Normal caliber thoracic aorta. Teaching Manager: PSCB Transcribe Date/Time: Aug 23 2023 11:20A Dictated by : SARAH CARNEY MD This examination was interpreted and the report reviewed and electronically signed by: SARAH CARNEY MD on Aug 23 2023 12:14PM EST [id number]^SI^ACN us Generic External Data Provider [facility] Final Result documented in this encounter Visit Diagnoses Not on filedocumented in this encounter Care Teams Pipefitter Welder Relationship Specialty Start Date End Date Isaac Nazario MD [address] [place] [address] PCP - ACO Reach 01/05/23 Isaac Nazario MD [address] [place] [address] PCP - General Family Medicine 02/08/23 11/02/23 Hannah Brian MD [address] [place] [address] PCP - General Family Medicine 11/03/23 documented as of this encounter
--- OUTSIDE RECORDS SUMMARY | 2025-01-30 10:00 | XMS_ITS ---
Author Organization [facility] Address [address] [place] [address] Care Team Providers Care Juice Bar Team Member Name Role Phone Isaac Nazario MD Unavailable [phone] Hannah Brian MD Primary Care Provider [phone] Chronic Care Management (CCM) Status:Enrolled (Active) Start date:12/29/2022 Enrollment date:12/29/2022 Overview 10/12/23, 1:51 PM - Loida Nathan LPN- Patient gives verbal consent to be enrolled in CCM Program andunderstands there could be a bill for this service. Case Team Name Relationship Phone Loida Nathan LPN(Responsible Staff) Clinical Advoc ate [phone] Continued Care and Services Coordination
--- OUTSIDE RECORDS SUMMARY | 2025-01-30 10:00 | XMS_ITS | Encounter Summary ---
Author Organization [facility] Address [address] [facility] [place] [address] Care Team Providers Care Loading Manager Name Role Phone Peggy Whitley MD Unavailable [phone] Peggy Whitley MD Primary Care Provider [phone] Hannah Brian MD Primary Care Provider [phone] Encounter Details Date Type Department Care Team (Late Contact Info) Description 10/13/2023 Clinisync Result Encounter [facility] External Department Unsolicited [...] 04/09/2025 3:20 PM EDT Office Visit [facility] [address] [place] [address] Hannah Brian MD [address] [place] [address] documented as of this encounter Procedures Procedure Name Priority Date/Time Associated Diagnosis Comments CARD ECHO LIMITED STUDY 10/13/2023 12:39 PM EST documented in this encounter Results * CARD ECHO LIMITED STUDY (10/13/2023 12:39 PM EST) Anatomical Region Laterality Modality Radiographic Iwona ging 10/13/2023 12:3 9 PM EST Narrative 10/13/2023 12:40 PM EST [address] [address] Cardiology Report Signed Patient: ASYA ULLOA MR#: [id number] : 1950 Acct:[id number] Age/Sex: 73 / F ADM Date: 10/13/23 Loc: CARD Attending Dr: Non-Staff Physician MAntonio Ordering Physician: Conrado ZhaoStaff Pedro Date of Service: 10/13/23 Procedure(s): CA echo limited Accession Number(s): [id number] cc: PEGGY WHITLEY ; Physician,Non-Staff Pedro Patient Name: ASYA ULLOA MR#: [id number] : 1950 Exam Date: 10/13/2023 Ordering Doctor: ANA SALVADOR ECHOCARDIOGRAM REPORT PROCEDURE: CA ECHO LIMITED INDICATIONS: Heart failure with reduced ejection fraction COMPARISON: None. DESCRIPTION: Limited ECHOCARDIOGRAM Real-time transthoracic echocardiography with 2D and M-mode performed. QUALITY: Technical quality was good. 65 , 115#, BSA 1.56 m2 LEFT VENTRICLE: Normal chamber size. Normal left ventricular wall thickness. LV EF: Normal left ventricular systolic function is mildly reduced; visually estimated ejection fraction is 40 to 45%. The base of the inferior wall is akinetic. LEFT ATRIUM: Severe dilatation. RIGHT ATRIUM: Severe dilatation. RIGHT VENTRICLE: Normal chamber size. Normal systolic function. TRICUSPID VALVE: Normal mobility and thickness. MITRAL VALVE: Normal mobility and thickness. There is no mitral annular calcification. AORTIC VALVE: Normal trileaflet appearance. No visible sclerosis. Normal leaflet mobility. AORTIC ROOT: Normal diameter and appearance. PULMONIC VALVE: Normal thickness and mobility. PERICARDIUM: No evidence of pericardial effusion. IVC: IVC is dilated (2.2 cm), does not fully collapse. CONCLUSION: 1. Global left ventricular systolic function is mildly reduced; visually estimated ejection fraction is 40 to 45% 2. Segmental wall motion abnormalities are seen 3. Normal right ventricular size and systolic function 4. Biatrial enlargement A limited echocardiogram was performed Adult Echocardiography Procedure Report Left Ventricle LVEDD (3.7 - 5.6 cm): 5.04 cm LVESD (2.2 - 4.0 cm): 3.87 cm LVIVS thickness (0.6 - 1.2 cm): 0.72 cm LVPW thickness (0.5 - 1.0 cm): 0.91 cm LVOT Max Gradient: 1.29 mm[Hg] LVOT Area (cm2): 0.57 m/s Peak Velocity (LVOT): 0.57 m/s Mean Velocity (LVOT): 0.37 m/s LVOT Diameter 2.21 cm Left Atrium LA Volume Index (2D A2C): 62.05 ml/m2 Left Atrium Systolic Dimension: 3.33 cm Mitral Valve Mitral Valve E-Wave Peak Velocity: 0.79 m/s Right Ventricle Aorta AO Root Diam: 2.74 cm Ascending Ao Diam: 2.08 cm Aortic Valve AoV Area (Peak Tom): 2.07 cm2, 2.07 cm2 AoV Area (VTI): 1.99 cm2, 1.99 cm2 Peak Velocity(Antegrade Flow): 1.05 m/s Peak Gradient(Antegrade Flow): 4.43 mm[Hg] Mean Velocity(Antegrade Flow): 0.71 m/s Mean Gradient(Antegrade Flow): 2.26 mm[Hg] Velocity Time Integral: 19.28 cm Tricuspid Valve Peak Velocity (Regurgitant Flow): 3.17 m/s, 2.99 m/s, 2.96 m/s Pulmonic Valve Peak Velocity: 0.76 m/s Peak Gradient: 2.88 mm[Hg], 1.80 mm[Hg] Right Atrium Right Atrium Systolic Pressure: 53.96 ml, 53.96 ml Dictated by: Dani Dickerson M.D. on 10/13/2023 at 12:36 Approved by: Dani Dickerson M.D. on 10/13/2023 at 12:39 Dictated By: Dani Dickerson M.D. Signed By: 10/13/23 1240 DD/ 1239 TD/TT: Clinical Mental Health Counselor: Procedure Note Radiology, Radiologist, - 10/13/2023 [place] [address] Cardiology Report Signed Patient: SIMRAN ULLOA#: [id number] : 1950cct:[id number] Age/Sex: 73 / FADM Date: 10/13/23 Loc: CARD Attending Dr: Non-Staff Physician Pedro Ordering Physician: PhysicianConradoStaff Pedro Date of Service: 10/13/23 Procedure(s): CA echo limited Accession Number(s): [id number] cc: PEGGY WHITLEY ; Physician,Jayde-Staff Pedro Patient Name: ASYA ULLOA MR#: [id number] : 1950 Exam Date: 10/13/2023 Ordering Doctor: ANA SALVADOR ECHOCARDIOGRAM REPORT PROCEDURE: CA ECHO LIMITED INDICATIONS: Heart failure with reduced ejection fraction COMPARISON: None. DESCRIPTION: Limited ECHOCARDIOGRAM Real-time transthoracic echocardiography with 2D and M-mode performed. QUALITY: Technical quality was good. 65 , 115#, BSA 1.56 m2 LEFT VENTRICLE: Normal chamber size. Normal left ventricular wall thickness. LV EF: Normal left ventricular systolic function is mildly reduced; visually estimated ejection fraction is 40 to 45%. The base of theinferior wall is akinetic. LEFT ATRIUM: Severe dilatation. RIGHT ATRIUM: Severe dilatation. RIGHT VENTRICLE: Normal chamber size. Normal systolic function. TRICUSPID VALVE: Normal mobility and thickness. MITRAL VALVE: Normal mobility and thickness. There is no mitralannular calcification. AORTIC VALVE: Normal trileaflet appearance. No visible sclerosis.Normal leaflet mobility. AORTIC ROOT: Normal diameter and appearance. PULMONIC VALVE: Normal thickness and mobility. PERICARDIUM: No evidence of pericardial effusion. IVC: IVC is dilated (2.2 cm), does not fully collapse. CONCLUSION: 1. Global left ventricular systolic function is mildly reduced; visually estimated ejection fraction is 40 to 45% 2. Segmental wall motion abnormalities are seen 3. Normal right ventricular size and systolic function 4. Biatrial enlargement A limited echocardiogram was performed Adult Echocardiography Procedure Report Left Ventricle LVEDD (3.7 - 5.6 cm): 5.04 cm LVESD (2.2 - 4.0 cm): 3.87 cm LVIVS thickness (0.6 - 1.2 cm): 0.72 cm LVPW thickness (0.5 - 1.0 cm): 0.91 cm LVOT Max Gradient: 1.29 mm[Hg] LVOT Area (cm2): 0.57 m/s Peak Velocity (LVOT): 0.57 m/s Mean Velocity (LVOT): 0.37 m/s LVOT Diameter 2.21 cm Left Atrium LA Volume Index (2D A2C): 62.05 ml/m2 Left Atrium Systolic Dimension: 3.33 cm Mitral Valve Mitral Valve E-Wave Peak Velocity: 0.79 m/s Right Ventricle Aorta AO Root Diam: 2.74 cm Ascending Ao Diam: 2.08 cm Aortic Valve AoV Area (Peak Tom): 2.07 cm2, 2.07 cm2 AoV Area (VTI): 1.99 cm2, 1.99 cm2 Peak Velocity(Antegrade Flow): 1.05 m/s Peak Gradient(Antegrade Flow): 4.43 mm[Hg] Mean Velocity(Antegrade Flow): 0.71 m/s Mean Gradient(Antegrade Flow): 2.26 mm[Hg] Velocity Time Integral: 19.28 cm Tricuspid Valve Peak Velocity (Regurgitant Flow): 3.17 m/s, 2.99 m/s, 2.96 m/s Pulmonic Valve Peak Velocity: 0.76 m/s Peak Gradient: 2.88 mm[Hg], 1.80 mm[Hg] Right Atrium Right Atrium Systolic Pressure: 53.96 ml, 53.96 ml Dictated by: Dani Dickerson M.D. on 10/13/2023 at 12:36 Approved by: Dani Dickerson M.D. on 10/13/2023 at 12:39 Dictated By: Dani Dickerson M.D. Signed By:10/13/23 1240 DD/ 1239 TD/TT: Clinical Mental Health Counselor: us Generic External Data Provider IMG XR PROCEDURES Final Result documented in this encounter Visit Diagnoses Not on filedocumented in this encounter Care Teams Loading Manager Relationship Specialty Start Date End Date Peggy Whitley MD [address] [place] [address] PCP - ACO Reach 01/05/23 Peggy Whitley MD [address] [place] [address] PCP - General Family Medicine 02/08/23 11/02/23 Hannah Brian MD [address] [place] [address] PCP - General Family Medicine 11/03/23 documented as of this encounter
--- OUTSIDE RECORDS SUMMARY | 2025-01-30 10:01 | XMS_ITS | Encounter Summary ---
Author Organization [facility] Address [address] [place] [address] Care Team Providers Care Ms Sql Developer Name Role Phone Isaac Nazario MD Unavailable [phone] Hannah Brian MD Primary Care Provider [phone] Encounter Details Date Type Department Care Team (Late st Contact Info) Description 11/13/2023 Clinisync Result Encounter [facility] External Department Unsolicited Hannah Brian MD [address] [place] [address] Social History Tobacco Use Types Packs/Day Years [...] Office Visit [facility] [address] [place] [address] Hannah Brian MD [address] [place] [address] documented as of this encounter Procedures Procedure Name Priority Date/Time Associated Diagnosis Comments US ABDOMEN, LIMITED 11/13/2023 7 :31 AM EDT documented in this encounter Results * US ABDOMEN, LIMITED (11/13/2023 7:31 AM EDT) Anatomical Region Laterality Modality Other 11/13/2023 7:31 AM EDT Narrative 11/13/2023 3:34 PM EDT Exam Date/Time: 11/13/2023 08:00 EDT Reason for [...] Nava MD Transcribed by: ARAVIND Technologist: JOSE Procedure Note Radiology, Radiologist, MD - 11/13/2023 Exam Date/Time: 11/13/2023 08:00 EDT Reason for Exam: R19.00 Intra-abdominal and pelvic swelling, mass and lump, unspecifiedsite Report IMPRESSION: No soft tissue mass or collection in the area of concern. EXAMINATION: US Abdomen, Limited HISTORY: R19.00 Intra-abdominal and pelvic swelling, mass and lump,unspecified site. TECHNIQUE: Grayscale and power Doppler ultrasound imaging was performed inthe area of concern and images were saved to the permanent image archive. COMPARISON: CT 04/04/2023. Ultrasound 10/03/2016. RESULT: There is no soft tissue mass or collection in the area of concern. Nohernia visualized. Visualized aorta normal caliber with vascular calcifications.Per tech, the area of palpable concern corresponds to the location of the abdominalaorta which may be the region the patient is feeling secondary to thin body habitus. Ordering Provider: Hannah Brian FINAL REPORT Dictated: 11/13/2023 3:31 pm Johan Nava MD Signed (Electronic Signature): 11/13/2023 3:31 pm Signed by: Johan Nava MD Transcribed by: ARAVIND Technologist: JOSE us Hannah Brian MD [facility] Final Resul t documented in this encounter Visit Diagnoses Not on filedocumented in this encounter Care Teams Ms Sql Developer Relationship Specialty Start Date End Date Isaac Nazario MD [address] [place] [address] PCP - ACO Reach 01/05/23 Hannah Brian MD [address] [place] [address] PCP - General Family Medicine 11/03/23 documented as of this encounter
--- NOTE | 2025-01-30 10:13 | ECG_ITS ---
[facility] Test Date: 2025-01-30 Pat Name: HARJIT ULLOA Department: Room: - Gender: Female Dealer Card Room: : 1950 Requested By: [id number] Order Number: [id number] Reading MD: NEREYDA CARLTON M.D. Measurements Intervals [place] Rate: 70 P: -[address]576 IN: -[address]656 QRS: 130 QRSD: 128 T: 36 QT: 422 QTc: 443 Interpretive Statements 43[address] Electronic ventricular pacemaker (Unreliable analysis due to noise) Likely underlying atrial fibrillation 0102 ARTIFACT PRESENT 9120 atypical ECG Compared to ECG 01/19/2025 02:56:18 No significant changes Electronically Signed On 01-30-2025 17:52:53 EDT by NEREYDA CARLTON M.D.
--- NOTE | 2025-01-30 10:14 | CT_ITS ---
The [address] [address] Patient Name: HARJIT ULLOA MRN: [id number] date: 1950 Sex: F Assigned Patient Location: ER Current Patient Location: ER Accession/Order Number: [id number] Exam Date: 01/30/2025 11:49 Report Date: 01/30/2025 12:01 At the request of: ANTHONY CHILDERS MD Procedure: CT int auditory canals w con CLINICAL DATA: Bleeding from the right ear and right-sided headache. CT BRAIN WITHOUT CONTRAST: COMPARISON: None TECHNIQUE: Contiguous axial unenhanced images were obtained through the brain. This CT exam was performed using one or more following dose reduction techniques: Automated exposure control, adjustment of the mA and/or kV according to patient size, or use of iterative reconstruction technique. FINDINGS: There is mild generalized atrophy. The ventricles are normal in size and position. Physiologic basal ganglia calcifications are seen. Minimal microvascular changes are noted. There are no additional areas of abnormal attenuation. There is no hemorrhage, mass effect or extra-axial collections. The imaged paranasal sinuses and mastoid air cells are clear. There is minor carotid siphon plaque. CT/CT head/brain wo con IMPRESSION: AGE-RELATED CHANGES. NO ACUTE INTRACRANIAL ABNORMALITY. CT OF THE INTERNAL AUDITORY CANALS WITH CONTRAST: COMPARISON: None TECHNIQUE: Spiral axial high resolution images were obtained through the temporal bones following administration of 100 mL of intravenous Omnipaque 300. Coronal reconstructions were also performed. This CT exam was performed using one or more following dose reduction techniques: Automated exposure control, adjustment of the mA and/or kV according to patient size, or use of iterative reconstruction technique. FINDINGS: Nodular soft tissue density is present within the right external auditory canal which may be cerumen. There is also suggestion of mild thickening of the wall inferiorly. The external auditory canal on the left is unremarkable. The internal auditory canals are also within normal limits. There is no evidence of bony expansion or erosion. There is normal pneumatization of the middle ear cavities. There is normal appearance of the ossicles. There is no thickening of the tympanic membrane or erosion of the scutum. There are no abnormalities involving the inner ears. There is normal pneumatization of the mastoid air cells. No inflammatory changes are seen. The imaged paranasal sinuses are also clear. Degenerative changes are present at the mandibular condyles . No abnormal intracranial enhancement or vascular abnormalities are seen in the field of view. IMPRESSION: MILD WALL THICKENING AT THE EXTERNAL AUDITORY CANAL ON THE RIGHT WHERE THERE IS ALSO INTRALUMINAL MATERIAL THAT MIGHT BE CERUMEN. VISUAL CORRELATION IS SUGGESTED. OTHERWISE UNREMARKABLE EVALUATION OF THE MIDDLE AND INNER AIR STRUCTURES WELL THE MASTOID AIR CELLS. Impression dictated by: Stephanie Barnes M.D. 01/30/2025 12:01 PM Dictation Location: [place] [address] Electronically authenticated by: [id number] Y Date: 01/30/2025 12:01
--- NOTE | 2025-01-30 10:14 | CT_ITS ---
The [address] [address] Patient Name: HARJIT ULLOA MRN: [facility]:[id number] date: 1950 Sex: F Assigned Patient Location: ER Current Patient Location: ER Accession/Order Number: [id number] Exam Date: 01/30/2025 11:49 Report Date: 01/30/2025 12:01 At the request of: ANTHONY CHILDERS MD Procedure: CT int auditory canals w con CLINICAL DATA: Bleeding from the right ear and right-sided headache. CT BRAIN WITHOUT CONTRAST: COMPARISON: None TECHNIQUE: Contiguous axial unenhanced images were obtained through the brain. This CT exam was performed using one or more following dose reduction techniques: Automated exposure control, adjustment of the mA and/or kV according to patient size, or use of iterative reconstruction technique. FINDINGS: There is mild generalized atrophy. The ventricles are normal in size and position. Physiologic basal ganglia calcifications are seen. Minimal microvascular changes are noted. There are no additional areas of abnormal attenuation. There is no hemorrhage, mass effect or extra-axial collections. The imaged paranasal sinuses and mastoid air cells are clear. There is minor carotid siphon plaque. CT/CT int auditory canals w con IMPRESSION: AGE-RELATED CHANGES. NO ACUTE INTRACRANIAL ABNORMALITY. CT OF THE INTERNAL AUDITORY CANALS WITH CONTRAST: COMPARISON: None TECHNIQUE: Spiral axial high resolution images were obtained through the temporal bones following administration of 100 mL of intravenous Omnipaque 300. Coronal reconstructions were also performed. This CT exam was performed using one or more following dose reduction techniques: Automated exposure control, adjustment of the mA and/or kV according to patient size, or use of iterative reconstruction technique. FINDINGS: Nodular soft tissue density is present within the right external auditory canal which may be cerumen. There is also suggestion of mild thickening of the wall inferiorly. The external auditory canal on the left is unremarkable. The internal auditory canals are also within normal limits. There is no evidence of bony expansion or erosion. There is normal pneumatization of the middle ear cavities. There is normal appearance of the ossicles. There is no thickening of the tympanic membrane or erosion of the scutum. There are no abnormalities involving the inner ears. There is normal pneumatization of the mastoid air cells. No inflammatory changes are seen. The imaged paranasal sinuses are also clear. Degenerative changes are present at the mandibular condyles . No abnormal intracranial enhancement or vascular abnormalities are seen in the field of view. IMPRESSION: MILD WALL THICKENING AT THE EXTERNAL AUDITORY CANAL ON THE RIGHT WHERE THERE IS ALSO INTRALUMINAL MATERIAL THAT MIGHT BE CERUMEN. VISUAL CORRELATION IS SUGGESTED. OTHERWISE UNREMARKABLE EVALUATION OF THE MIDDLE AND INNER AIR STRUCTURES WELL THE MASTOID AIR CELLS. Impression dictated by: Stephanie Barnes M.D. 01/30/2025 12:01 PM Dictation Location: [place] [address] Electronically authenticated by: [id number] Y Date: 01/30/2025 12:01
--- NOTE | 2025-01-30 10:33 | PC.NURSE ---
RN cleaned pts right ear with saline solution. No active bleeding noted. Pt has small pin point wound on external ear that appears to be source of bleeding. Pt is on eliquis.
[2025-01-30 10:34] LABS: Basophils Percent Auto 0.5 % (0.2-2.0); Eosinophils Absolute Auto 0.1 10^3/uL (0.0-0.7); Eosinophils Percent Auto 1.1 % (0.9-7.0); Immature Granulocytes Abs Auto 0.01 10^3/uL (0.00-0.03); Immature Granulocytes Pct Auto 0.1 % (0.0-0.5); Lymphocytes Absolute Auto 1.2 10^3/uL (1.2-3.8); Lymphocytes Percent Auto 16.2 % (20.5-60.0); Mean Corpuscular HGB Conc 33.3 g/dL (29.9-35.2); Mean Corpuscular Hemoglobin 31.1 pg (26.7-34.0); Mean Corpuscular Volume 93.3 fL (81.0-99.0); Mean Platelet Volume 9.6 fL (9.5-13.5); Monocytes Absolute Auto 0.4 10^3/uL (0.3-0.8); Monocytes Percent Auto 5.8 % (1.7-12.0); Neutrophils Absolute Auto 5.7 10^3/uL (1.4-6.5); Neutrophils Percent Auto 76.3 % (43.0-75.0); Platelet Count 234 10^3/uL (150-450); Red Blood Count 4.18 10^6/uL (4.20-5.40); Red Cell Distribution Width 13.2 % (11.0-15.0); White Blood Count 7.5 10^3/uL (4.0-11.0)
--- NOTE | 2025-01-30 10:36 | XR_ITS ---
The [address] [address] Patient Name: HARJIT ULLOA MRN: [id number] date: 1950 Sex: F Assigned Patient Location: ER Current Patient Location: ER Accession/Order Number: [id number] Exam Date: 01/30/2025 11:34 Report Date: 01/30/2025 11:37 At the request of: ANTHONY CHILDERS MD Procedure: XR chest 1V AP ERECT CHEST CLINICAL HISTORY: Shortness of breath. Right-sided headache and blood at the right ear. 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 The heart remains slightly prominent. There is no vascular congestion. No developing consolidation is seen. There is no effusion or pneumothorax. The bony structures are osteopenic. XR/XR chest 1V IMPRESSION: CONTINUED CARDIOMEGALY. NO ACUTE PULMONARY FINDINGS Impression dictated by: Stephanie Barnes M.D. 01/30/2025 11:37 AM Dictation Location: [place] [address] Electronically authenticated by: [id number] Y Date: 01/30/2025 11:37
--- NOTE | 2025-01-30 10:47 | ED.GENADUL1 ---
HPI HPI - General Adult General Chief complaint: Ear Stated complaint: BLEEDING FROM EAR Time Seen by Provider: 01/30/25 10:07 Source: patient Mode of arrival: walk-in Limitations: no limitations History of Present Illness HPI narrative: The patient coming to the ER with a right sided headache as well as a right ear bleeding that she noted all of a sudden, patient mentioned that she woke up with the blood coming out of her ear she does not remember any injury and she also have a right-sided headache No nausea no vomiting no other complaint except for the fact that the patient had some shortness of breath yesterday when she was doing some grocery shopping and she does not have anything actively at the moment She mentioned that sometimes she is short of breath on exertion but not all the time and she just recently had a mitral valve clipping almost at January 14 Related Data Home Medications ?Medication ?Instructions ?Recorded ?Confirmed atorvastatin 40 mg tablet 40 mg PO .once daily 10/15/23 01/30/25 lorazepam 0.5 mg tablet 0.5 mg PO TID PRN anxiety 10/15/23 01/30/25 spironolactone 25 mg tablet 12.5 mg PO .once daily 10/15/23 01/30/25 apixaban 5 mg tablet (Eliquis) 5 mg PO BID 06/01/24 01/30/25 carvedilol 6.25 mg tablet 6.25 mg PO BID 01/19/25 01/30/25 Previous Rx's ?Medication ?Instructions ?Recorded ciprofloxacin HCl 0.2 % ear drops 5 drp otic (ear) BID 7 days #14 ea 01/30/25 in a dropperette Allergies Allergy/AdvReac Type Severity Reaction Status Date / Time meperidine (From Demerol) Allergy Intermediate Agitated Verified 01/30/25 10:04 Review of Systems ROS Status of ROS 10 or more systems reviewed and unremarkable except as noted in history and below PFSH PFSH Social History Smoking status: Former smoker Little interest or pleasure in doing things: not at all Feeling down, depressed, or hopeless: not at all Exam Narrative Exam Narrative: Nurses notes and vital signs reviewed and patient is not hypoxic. General: Well-appearing and in no apparent distress. Skin: Warm, dry, no pallor noted. No rash. Head: Normocephalic, atraumatic. Neck: Supple, non-tender. Eye: Pupils are equal, round and EOMI. No scleral icterus. Ears, Nose, Mouth, and Throat: There is a fresh blood in the right ear canal external auditory meatus as well as a blood clot that is obvious behind it, the tympanic membrane is not clear Cardiovascular: Regular Rate and Rhythm without murmur, gallop or rub. Respiratory: No accessory muscle use or respiratory distress. Lungs are clear to auscultation, no wheezing, rales or rhonchi Chest Wall: no tenderness Back: No midline thoracic or lumbar vertebral tenderness. No CVA tenderness Musculoskeletal: normal ROM, no calf or popliteal tenderness, no lower extremity edema/swelling GI: Abdomen is soft, non-distended. Normal bowel sounds. No masses appreciated. No tenderness to palpation. No rebound, guarding, or rigidity noted. Neurological: A&O x4. No cranial nerve dysfunction observed. No truncal ataxia Constitutional Vital Signs, click to edit/add: Last Vital Signs Temp 97.9 F 01/30/25 10:00 Pulse 70 01/30/25 11:40 Resp 01/30/25 11:40 BP 138/88 01/30/25 12:42 Pulse Ox 98 01/30/25 12:30 O2 Del Method Room Air 01/30/25 10:00 Course Vital Signs Vital signs: Vital Signs Temperature 97.9 F 01/30/25 10:00 Pulse Rate 70 01/30/25 10:00 Respiratory Rate 18 01/30/25 10:00 Blood Pressure 128/70 01/30/25 10:00 Pulse Oximetry 98 01/30/25 10:00 Oxygen Delivery Method Room Air 01/30/25 10:00 Temperature 97.9 F 01/30/25 10:00 Pulse Rate 70 01/30/25 11:40 Respiratory Rate 18 01/30/25 11:40 Blood Pressure 138/88 01/30/25 12:42 Pulse Oximetry 98 01/30/25 12:30 Oxygen Delivery Method Room Air 01/30/25 10:00 Medical Decision Making MDM Narrative Medical decision making narrative: The patient EKG showing paced rhythm with a heart rate of [address] elevation or depression CBC and chemistry showed no acute significant pathology as well as chest x-ray and troponin The patient shortness of breath is not present at the moment but she recently had a surgery done and she could be having some deconditioning as well she does not have any chest pain the shortness of breath and she mentioned that it was after walking for a while in the grocery shop The patient initially with her complaint of headache and right ear bleeding she had a CT head as well as CT of the auditory canal showing no acute significant pathology except for a old blood in the right external auditory meatus and the patient was treated with Cipro eardrop for possible otitis externa After explaining to the patient the findings she did mention that she might have scratched her ear as well with her nail The patient just to monitor her symptoms and avoid trauma to the ear The patient is to follow up with primary care physician in next 2-3 days or to return to the emergency department should any of the signs or symptoms worsen or new symptoms develop. The patient agrees with the following Diagnosis and Treatment plan and the patient will be discharged home. Lab Data Labs: Lab Results 01/30/25 Range/Units 10:26 WBC 7.5 (4.0-11.0) 10^3/uL RBC 4.18 L (4.20-5.40) 10^6/uL Hgb 13.0 (12.0-16.0) g/dL Hct 39.0 (36.0-48.0) % MCV 93.3 (81.0-99.0) fL MCH 31.1 (26.7-34.0) pg MCHC 33.3 (29.9-35.2) g/dL RDW 13.2 (11.0-15.0) % Plt Count 234 (150-450) 10^3/uL MPV 9.6 (9.5-13.5) fL Neut % (Auto) 76.3 H (43.0-75.0) % Lymph % (Auto) 16.2 L (20.5-60.0) % [place] % (Auto) 5.8 (1.7-12.0) % Eos % (Auto) 1.1 (0.9-7.0) % Baso % (Auto) 0.5 (0.2-2.0) % Neut # (Auto) 5.7 (1.4-6.5) 10^3/uL Lymph # (Auto) 1.2 (1.2-3.8) 10^3/uL [place] # (Auto) 0.4 (0.3-0.8) 10^3/uL Eos # (Auto) 0.1 (0.0-0.7) 10^3/uL Baso # (Auto) 0.0 (0.0-0.1) 10^3/uL Abs Immat Gran (auto) 0.01 (0.00-0.03) 10^3/uL Imm/Tot Granulo (auto) 0.1 (0.0-0.5) % PT 12.0 H (9.0-11.6) sec INR 1.15 Sodium 139 (136-145) mmol/L Potassium 4.2 (3.5-5.1) mmol/L Chloride 104 (98-107) mmol/L Carbon Dioxide 27.9 (21.0-32.0) mmol/L Anion Gap 11.3 BUN 19.0 H (7.0-18.0) mg/dL Creatinine 0.85 (0.55-1.02) mg/dL Est GFR ( Amer) >60 (>=60 mL/min/1.73m^2) Est GFR (Non-Af Amer) >60 (>=60 mL/min/1.73m^2) BUN/Creatinine Ratio 22.4 Glucose 135 H (74-106) mg/dL Calcium 8.8 (8.5-10.1) mg/dL Total Bilirubin 0.8 (0.2-1.0) mg/dL AST 24 (15-37) U/L ALT 29 (14-59) U/L Alkaline Phosphatase 93 (46-116) U/L Troponin I High Sens 14.6 (4.0-51.3) pg/mL Total Protein 6.6 (6.4-8.2) g/dL Albumin 3.2 L (3.4-5.0) g/dL Globulin 3.4 g/dL Albumin/Globulin Ratio 0.9 Discharge Plan Discharge Chief Complaint: Ear Clinical Impression: Hemorrhagic otitis externa of right external auditory canal, Breath shortness Patient Disposition: Home, Self-Care Time of Disposition Decision: 12:29 Condition: Good Mode of Transportation: Private Vehicle Prescriptions / Home Meds: New ciprofloxacin HCl 0.2 % dropperette 5 drp otic (ear) BID 7 Days Qty: 14 0RF Rx Instructions: please replace with 0.3 % ophthalmic eye drops incase not available apply to the right ear No Action Eliquis 5 mg tablet 5 mg PO BID carvedilol 6.25 mg tablet 6.25 mg PO BID atorvastatin 40 mg tablet 40 mg PO .once daily spironolactone 25 mg tablet 12.5 mg PO .once daily lorazepam 0.5 mg tablet 0.5 mg PO TID PRN (Reason: anxiety) Print Language: [place] Islander Instructions: Swimmer's Ear (ED), Earache (ED) Referrals: TANESHA HOOVER [Primary Care Provider] - 1 week Discharge Date/Time: 01/30/25 12:45
[2025-01-30 10:49] LABS: INR 1.15
[2025-01-30 10:53] LABS: Alanine Aminotransferase 29 U/L (14-59); Albumin Globulin Ratio 0.9; Albumin Level 3.2 g/dL (3.4-5.0); Alkaline Phosphatase 93 U/L (46-116); Anion Gap 11.3; Aspartate Amino Transferase 24 U/L (15-37); BUN Creatinine Ratio 22.4; Bilirubin Total 0.8 mg/dL (0.2-1.0); Calcium 8.8 mg/dL (8.5-10.1); Carbon Dioxide 27.9 mmol/L (21.0-32.0); Chloride 104 mmol/L (98-107); Estimated GFR (African America >60 (>=60 mL/min/1.73m^2); Estimated GFR (Non-African Ame >60 (>=60 mL/min/1.73m^2); Globulin 3.4 g/dL; Glucose 135 mg/dL (74-106); Potassium 4.2 mmol/L (3.5-5.1); Sodium 139 mmol/L (136-145); Total Protein 6.6 g/dL (6.4-8.2); Troponin I High Sensitivity 14.6 pg/mL (4.0-51.3)
--- NOTE | 2025-01-30 12:43 | PC.NURSE ---
no active bleeding from ear at time of d/c.
== END 2025-01-30 12:45 | disposition home or self-care (01) ==
PROVIDERS: Emergency Provider Emergency Medicine; PCP Student in an Organized Health Care Education/Training Program
DX: H60.321 Hemorrhagic otitis externa, right ear (principal); Z95.0 Presence of cardiac pacemaker; R06.02 Shortness of breath; Z87.891 Personal history of nicotine dependence; Z98.890 Other specified postprocedural states; R51.9 Headache, unspecified
CPT/HCPCS: 36415; 70450; 70481; 71045; 80053; 84484; 85025; 85610; 93005; 99285; Q9967

== ENCOUNTER 2025-02-07 13:35 | Outpatient (OUT) | payer MEDICARE, BC, SELFPAY ==
--- OUTSIDE RECORDS SUMMARY | 2025-02-07 13:38 | XMS_ITS | Encounter Summary ---
Author Organization [facility] Address [address] [place] [address] Care Team Providers Care Occupational Therapist Aide Name Role Phone Isaac Nazario MD Unavailable [phone] Isaac Nazario MD Primary Care Provider [phone] Hannah Brian MD Primary Care Provider [phone] Encounter Details Date Type Department Care Team (Late Contact Info) Description 04/12/2023 Abstract [facility] [address] [place] [address] Isaac Nazario MD [address] [place] [address] Social History Tobacco Use Types Packs/Day Years Used Date Smoking Tobacco: Former Cigarettes Passive Smoke Exposure: Never Smokeless Tobacco: Never Tobacco Cessation:Counseling Given: Not Answered Alcohol Use Standard Drinks/Week Comments Not Currently 0 (1 standard drink = 0.6 oz pur e alcohol) caffeine: 1-2 cups/day Comments Unknown Sex and Gender Information Value Date Recorded Sex Assigned at Not on file Legal Sex Female 7:24 PM EDT Gender Identity Not on file Sexual Orientation Not on file documented as of this encounter Plan of Treatment Upcoming Encounters Date Type Department Care Team (Late Contact Info) Description 04/09/2025 3:20 PM EDT Office Visit [facility] [address] [place] [id number] Hannah Brian MD [address] [place], [place] [id number] documented as of this encounter Visit Diagnoses Not on filedocumented in this encounter Care Teams Occupational Therapist Aide Relationship Specialty Start Date End Date Isaac Nazario MD [address] [place] [address] PCP - ACO Reach 01/05/23 Isaac Nazario MD [address] [place] [address] PCP - General Family Medicine 02/08/23 11/02/23 Hannah Brian MD [address] [place] [address] PCP - General Family Medicine 11/03/23 documented as of this encounter
--- OUTSIDE RECORDS SUMMARY | 2025-02-07 13:38 | XMS_ITS | Clinical Summary ---
Author Organization [facility] Address [address] [place] [address] Care Team Providers Care Process Safety Specialist Name Role Phone Irving Sorto MD Unavailable [phone] Johan Mireles MD Unavailable [phone] Isaac Nazario MD Primary Care Provider [phone] Allergies Active Allergy Reactions Criticality Noted Date [...] is lower risk 3 05/07/2024 Data from: https://www.neighborhoodatlas.medicine.[facility]/. Last address used for calculation [address] [...] 024 11:13 AM EST) No Benitez Dudley APRN.WELD TECHNICIAN Procedures Procedure Name Priority Date/Time Associated Diagnosis [...] - 8.0 g/dL 09/26/2023 1:52 PM EST [facility] Albumin 4.2 3.9 - 4.9 g/dL 09/26/2023 1:52 PM EST [facility] Calcium, Total 9.6 8.5 - 10.2 mg/dL 09/26/2023 1:52 PM EST [facility] Bilirubin, Total 0.6 0.2 - 1.3 mg/dL 09/26/2023 1:52 PM EST [facility] Alkaline Phosphatase 57 34 - 123 U/L 09/26/2023 1:52 PM EST [facility] AST 29 13 - 35 U/L 09/26/2023 1:52 PM EST [facility] ALT 36 7 - 38 U/L 09/26/2023 1:52 PM [facility] Glucose 129(H) 74 - 99 mg/dL 09/26/2023 1:52 PM [facility] Comment: The [place] Diabetes [employer] (ADA) provides guidance for cutoff [...] Standards of Medical Care in Diabetes 2016, [place] [employer]. Diabetes Care. 2016.39(Suppl 1). BUN 15 7 - 21 mg/dL 09/26/2023 1:52 PM [facility] Creatinine 0.82 0.58 - 0.96 mg/dL 09/26/2023 1:52 PM [facility] Sodium 139 136 - 144 mmol/L 09/26/2023 1:52 PM [facility] Potassium 4.3 3.7 - 5.1 mmol/L 09/26/2023 1:52 PM [facility] Chloride 100 97 - 105 mmol/L 09/26/2023 1:52 PM [facility] CO2 29 22 - 30 mmol/L 09/26/2023 1:52 PM [facility] Anion Gap 10 9 - 18 mmol/L 09/26/2023 1:52 PM [facility] Estimated Glomerular Filtration Rate 75 >=60 mL/min/1.7 3m 09/26/2023 1:52 PM [facility] Comment:Estimated Glomerular Filtration Rate (eGFR) [...] us Dick Singh MD LABORATORY Final Result [facility] [address] [place] [address], [place] * COLONOSCOPY - DIAGNOSTIC (02/15/2018 10:06 AM EDT) 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 Gastrointestinal Endoscopy Patient Name: Asya Asencio [...] Relevant to Health Maintenance Insurance [address] [place] [address] MEDICARE ANTHEM MEDICARE SUPPLEMENT Advance Directives * Full Code (Latest Code Status on File) Date Activated Date Inactivated Comments 08/24/2023 8:43 PM 08/31/2023 9:57 PM Question Answer Comments Full Code Order Discussed With: Patient Care Teams Process Safety Specialist Relationship Specialty Start Date End Date Isaac Nazario MD [address] [place] [address] PCP - General Family Medicine 07/24/23 Irving Sorto MD [address] [place] [address] Surgeon Cardiac Surg 07/24/23 Johan Mireles MD [address] [place] [address] Dock Pumper Cardiology 07/24/23
--- OUTSIDE RECORDS SUMMARY | 2025-02-07 13:38 | XMS_ITS | Clinical Summary ---
Author Organization [facility] Address [address] [address] Care Team Providers Care Financial Investment Manager Name Role Phone Hannah Brian MD Primary Care Provider [phone] Allergies Active Allergy Reactions Criticality Noted Date [...] 6 month interrogation Paroxysmal atrial fibrillation 02/13/2024 terminologist 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 4 Severe protein-calorie [...] Type Department Care Team Description 01/24/2025 Telephone [facility] [address] [place] [address] Allison Jefferson MA 01/23/2025 2:40 PM EDT Follow-Up [facility] [address] [place] [address] Niecy Mazariegos CNP Nonrheumatic mitral valve regurgitation (Primary Dx); Severe mitral regurgitation; S/P mitral valve repair; Primary hypertension; Chronic systolic heart failure (CMS/HCC); Nonrheumatic tricuspid valve regurgitation; Paroxysmal atrial fibrillation (CMS/HCC); Presence of biventricular automatic cardioverter/defibril lator (AICD); Cardiac pacemaker in situ 01/15/2025 Telephone [facility] [address] [place] [address] Allison Jefferson MA 01/14/2025 8:31 AM EDT Anesthesia Event [facility] [address] [place] [address] Lobo Machado MD 01/14/2025 8:30 AM EDT - 01/14/2025 10:30 AM EDT Surgery [facility] [address] [place] [address] Rafael Robins MD Transcatheter mitral valve repair [[id number]] 01/14/2025 7:06 AM EDT - 01/15/2025 5:01 PM EDT Hospital Encounter [facility] [address] [place] [address] Rafael Robins MD Severe mitral regurgitation (Primary Dx); Nonrheumatic mitral valve regurgitation; Primary hypertension Discharge Disposition: Home or Self Care (01) 01/14/2025 Travel 01/13/2025 Orders Only [facility] Pre-Anesthesia Clinic [address] [place] [address] Niecy Benito, ROCÍO 01/09/2025 Orders Only [facility] [address] [place] [address] Allison Jefferson MA Status post transcatheter aortic valve replacement 01/09/2025 Travel 01/08/2025 Orders Only [facility] [address] [place] [address] Rafia Roger CNP Nonrheumatic mitral valve regurgitation (Primary Dx) 12/24/2024 Telephone [facility] [address] [place] [address] Allison Jefferson MA 12/23/2024 1:30 PM EDT Office Visit [place] [address] [place] [address] Rafael Robins MD Nonrheumatic mitral valve regurgitation (Primary Dx); Chronic systolic heart failure (CMS/HCC); Nonrheumatic tricuspid valve regurgitation; Coronary artery disease involving [place] coronary artery of [place] heart without angina pectoris; Presence of biventricular automatic cardioverter/defibril lator (AICD); Longstanding persistent atrial fibrillation (CMS/HCC) 12/04/2024 Orders Only [facility] [address] [place] [address] Marco Peguero MD 11/29/2024 6:56 AM EDT - 11/29/2024 11:59 PM EDT Hospital Encounter [facility] [address] [place] [address] Nonrheumatic mitral valve regurgitation Discharge Disposition: Home or Self Care () 11/29/2024 Travel 11/22/2024 Travel 11/22/2024 Telephone [facility] [address] [place] [address] Rocio Underwood, RN from Last 3 Months [...] drink = 0.6 oz pur e alcohol) [facility] Utilities Answer Date Recorded In the past 12 months has th e [employer], gas, oil, or water company threatened to [...] any time in the past 12 m [facility], were you homeless or living in a senior care (including now)? No 01/14/2025 Hunger Vital Sign [...] Info) Description 02/10/2025 1:45 PM EDT Follow-Up [address] [address] Rafael Robins MD [address] [place] [address] [facility] [place] [address] 02/18/2025 3:45 PM EDT Ancillary Procedure [facility] [address] [place] [address] Health Maintenance Due Date Last [...] Sigmoidoscopy Discontinued Medical Devices Implanted Type Area Associate Professor Of Medicine Device Identifier Shelf Expiration Date Model / Serial / Lot Visionist X4 Is-1/Is4 Implanted:Qty: 1 on 02/28/2024 by Marco Peguero MD at [facility] Device Receptor Scientific [id number] 01/25/2026 [id number] / [id number] / System,Mitracl ip,G4,Xtw - [id number] Implanted:Qty: 1 on 01/14/2025 by Rafael Robins MD at [facility] Device N/A: Heart Nodality [id number] 03/26/2025 [id number] / / [id number] Ingevity+ Is-1 Bi Positive Fix Ra/Rv 52cm Implanted:Qty: 1 on 02/28/2024 by Marco Peguero MD at [facility] Lead Receptor [employer] [id number] 01/28/2026 [id number] / [id number] / Lead,Acuity X4,Straight - [id number] - [id number] Implanted:Qty: 1 on 02/28/2024 by Marco Peguero MD at [facility] Lead [employer]ceptor [employer] [id number] 01/17/2026 [id number] / [id number] / Procedures Procedure Name Priority Date/Time Associated [...] LINE PLACEMENT Routine 01/14/2025 9:04 AM EDT WV AN ELECTIVE ENDOTRACHEAL AIRWAY Routine 01/14/2025 8:52 [...] QTC CALCULATION(BAZE TT) 455 ms GE MUSE R-[place] 116 degrees GE MUSE T Wave [place] 14 degrees GE MUSE 01/15/2025 10:4 0 [...] Narrative 01/15/2025 12:08 PM EDT 1 1 [facility] Heart Station [address] [place] [address] [phone] (fax) Echocardiogram-[facility] Name: ASYA ULLOA Study Date: 01/15/2025 09:13 AM B/P: 89 mmHg/71 mmHg HR: 70 bpm Date of : 1950 Location: [facility] Height: 65 in. Age: 74 year(s) Patient [...] No pericardial effusion. Procedure Staff Reading Group: [facility] Entry Level Installation Technician: NETTIE Meeks, RDCS Ordering Physician: Rafael Robins MD Wall Motion Scores -1 - hyperkinesia, 0 - not evaluated, 1 - normal, 2 - hypokinesia, 3 - akinesia, 4 - dyskinesia Procedure Note Shara Martinez MD - 01/15/2025 1 1 [facility] Heart Station [address] [place], [place] [id number] (fax) Echocardiogram-[facility] Name: ASYA ULLOA Study Date: 01/15/2025 09:13 AM B/P: 89 mmHg/71 mmHg HR: 70 bpm Date of : 1950 Location: [facility] Height: 65 in. Age: 74 year(s) Patient [...] No pericardial effusion. Procedure Staff Reading Group: [facility] Entry Level Installation Technician: Kim Rodrigues BS, RDCS Ordering Physician: Rafael [...] - 10.60 10*3/uL 01/15/2025 6:09 AM EDT [facility] ([facility]) RBC 4.48 3.80 - 5.00 10*6/uL 01/15/2025 6:09 AM EDT [facility] ([facility]) Hemoglobin 13.6 12.0 - 15.0 g/dL 01/15/2025 6:09 AM EDT [facility] ([facility]) Hematocrit 45.2(H) 36.0 - 45.0 % 01/15/2025 6:09 AM EDT [facility] ([facility]) MCV 100.9(H) 82.0 - 98.0 fL 01/15/2025 6:09 AM EDT [facility] ([facility]) MCH 30.4 27.0 - 33.0 pg 01/15/2025 6:09 AM EDT [facility] ([facility]) MCHC 30.1(L) 32.0 - 35.0 g/dL 01/15/2025 6:09 AM T [facility] ([facility]) RDW 13.4 11.5 - 15.0 % 01/15/2025 6:09 AM EDT [facility] ([facility]) Platelets 176 150 - 400 10*3/uL 01/15/2025 6:09 AM EDT [facility] ([facility]) Blood Venous blood specimen / Unknown Venipuncture / Unknown 01/15/2025 5:23 AM EDT 01/15/2025 5:32 AM EDT us Rafia Roger FINANCIAL COACH LAB BLOOD ORDERABLES Final Re sult [facility] ([facility]) [address] [place], [place] [id number] * (ABNORMAL) Basic metabolic panel (01/15/2025 5:23 AM EDT) Only the most recent of3 resultswithin the time period is included. Sodium 133(L) 136 - 145 mmol/L 01/15/2025 5:55 AM EDT [facility] ([facility]) Potassium 4.7 3.5 - 5.1 mmol/L 01/15/2025 5:55 AM EDT [facility] ([facility]) Chloride 106 98 - 107 mmol/L 01/15/2025 5:55 AM EDT [facility] ([facility]) CO2 19(L) 21 - 31 mmol/L 01/15/2025 5:55 AM EDT [facility] ([facility]) BUN 16 7 - 25 mg/dL 01/15/2025 5:55 AM EDT [facility] ([facility]) Creatinine 0.84 0.60 - 1.20 mg/dL 01/15/2025 5:55 AM EDT [facility] ([facility]) Glucose 123(H) 70 - 100 mg/dL 01/15/2025 5:55 AM EDT [facility] ([facility]) Calcium 8.3(L) 8.6 - 10.3 mg/dL 01/15/2025 5:55 AM EDT [facility] ([facility]) Anion Gap 13 7 - 20 mmol/L 01/15/2025 5:55 AM EDT [facility] ([facility]) eGFR 72.0 >60.0 mL/min/1. 73m*2 01/15/2025 5:55 AM EDT [facility] HECTOR) Comment:[facility] s estimated glomerular filtration rate (eGFR) will [...] BUN/Creatinine Ratio 19.0 11/2024 5:55 AM EDT [facility] ([facility]) Blood Venous blood specimen / Unknown Venipuncture / Unknown 01/15/2025 5:23 AM EDT 01/15/2025 5:31 AM EDT Rafia Roger [facility] LAB BLOOD ORDERABLES Final Re sult [facility]) [address] [place] [address] * TRANSESOPHAGEAL ECHO (HAROON) W/ LIMITED DOPPLER AND COLOR FLOW (01/14/2025 11:39 AM EDT) Anatomical Region Laterality Modality Other 01/14/2025 7:49 AM EDT Narrative 01/14/2025 3:59 PM EDT 1 [facility] Heart Station [address] [facility] [place] [address] [phone] (fax) Transesophageal Echocardiogram-[facility] Name: ASYA ULLOA Study Date: 01/14/2025 07:49 AM B/P: 122 mmHg/67 mmHg HR: 71 bpm Date of : 1950 Location: [facility] Height: 65 in. Age: 74 year(s) Patient Room: [facility] Weight: 135 lb. Gender: Female Patient Status: InPt BSA: 1.67 m2 Indication: Mitral regurgitation, Mitral clip procedure Examination: HAROON/Limited Doppler/CFI Image Quality: Good Patient Consent: Informed, written consent was obtained for the procedure Exam Location: A HAROON was performed in the Assistant Professor Of Surgery without complications Anesthesia Performed under General Anesthesia [...] post transseptal puncture. Procedure Staff Reading Group: [facility] Entry Level Installation Technician: NETTIE Meeks, RDCS Ordering Physician: RAFIA ROGER Procedure Note Shara Martinez MD - 01/14/2025 1 [facility] Heart Station [address] [place] [address] [phone] (fax) Transesophageal Echocardiogram-[facility] Name: ASYA ULLOA Study Date: 01/14/2025 07:49 AM B/P: 122 mmHg/67 mmHg HR: 71 bpm Date of : 1950 Location: [facility] Height: 65 in. Age: 74 year(s) Patient Room: 3186 Weight: 135 lb. Gender: Female Patient Status: InPt BSA: 1.67 m2 Indication: Mitral regurgitation, Mitral clip procedure Examination: HAROON/Limited Doppler/CFI Image Quality: Good Patient Consent: Informed, written consent was obtained for the procedure Exam Location: A HAROON was performed in the Assistant Professor Of Surgery without complications Anesthesia Performed under General Anesthesia [...] post transseptal puncture. Procedure Staff Reading Group: [facility] Entry Level Installation Technician: NETTIE Meeks, RDCS Ordering Physician: RAFIA ROGER [...] - 01/15/2025 6:43 AM EDT Qc lot [id number]; roller leveler operator 5175 us Rafael Robins MD POINT [...] today for that purpose. PROCEDURES: Successful transcatheter [id number]-[id number] repair (ANA) of the mitral valve using XTW MitraClip device. Transseptal puncture performed under fluoroscopic and transesophageal echocardiography guidance. Preclosure in the right common femoral vein using two 6-Syrian ProGlide devices. Access into the right and left common femoral vein under ultrasound guidance. OPERATORS: Interventional Manager Life: Rafael Robins MD. Grit Blaster Interventional Manager Life: Chi Bejarano MD. Interventional Digital Artist: Dr Hunter Mittal. METHODS: Procedure was explained to the patient with risks and benefits. she signed informed consent. she was brought to laboratory asst in a fasting state. The procedure was performed in the cardiac laboratory asst under general anesthesia administered by the anesthesiology [...] the left common femoral vein and a 4-Syrian x 11 cm sheath was placed in order to gain central venous access for administration of medications and fluids. Micropuncture technique and ultrasound guidance were used for access in the right common femoral vein and a 6-Syrian x 11 cm sheath was placed. A preclosure in the right common femoral vein was performed using two 6-Syrian ProGlide devices. The access sheath was then [...] at the end of the procedure. The 4-Syrian left femoral venous sheath was removed and [...] - 10.60 10*3/uL 01/14/2025 9:48 AM EDT [facility] ([facility]) RBC 3.80 3.80 - 5.00 10*6/uL 01/14/2025 9:48 AM T [facility] ([facility]) Hemoglobin 11.8(L) 12.0 - 15.0 g/dL 01/14/2025 9:48 AM EDT [facility] ([facility]) Hematocrit 35.8(L) 36.0 - 45.0 % 01/14/2025 9:48 AM T [facility] ([facility]) MCV 94.2 82.0 - 98.0 fL 01/14/2025 9:48 AM EDT [facility] ([facility]) MCH 31.1 27.0 - 33.0 pg 01/14/2025 9:48 AM EDT [facility] ([facility]) MCHC 33.0 32.0 - 35.0 g/dL 01/14/2025 9:48 AM EDT [facility] ([facility]) RDW 13.4 11.5 - 15.0 % 01/14/2025 9:48 AM EDT [facility] ([facility]) Neutrophils % 61.6 40.0 - 72.0 % 01/14/2025 9:48 AM EDT [facility] ([facility]) Lymphocytes % 27.7 20.0 - 45.0 % 01/14/2025 9:48 AM EDT [facility] ([facility]) Monocytes % 8.3 5.0 - 12.0 % 01/14/2025 9:48 AM EDT [facility] ([facility]) Eosinophils % 1.4 0.0 - 6.0 % 01/14/2025 9:48 AM EDT [facility] ([facility]) Basophils % 0.6 0.0 - 1.0 % 01/14/2025 9:48 AM EDT [facility] ([facility]) Neutrophils Absolute 2.98 1.60 - 7.60 10*3/uL 01/14/2025 9:48 AM EDT [facility] ([facility]) Lymphocytes Absolute 1.34 1.20 - 4.00 10*3/uL 01/14/2025 9:48 AM EDT [facility] ([facility]) Monocytes Absolute 0.40 0.10 - 1.00 10*3/uL 01/14/2025 9:48 AM T [facility] ([facility]) Eosinophils Absolute 0.07 0.00 - 0.50 10*3/uL 01/14/2025 9:48 AM EDT [facility] ([facility]) Basophils Absolute 0.03 0.00 - 0.20 10*3/uL 01/14/2025 9:48 AM EDT [facility] ([facility]) Platelets 178 150 - 400 10*3/uL 01/14/2025 9:48 AM EDT [facility] ([facility]) nRBC % 0.0 0 % 01/14/2025 9:48 AM EDT [facility] ([facility]) Immature Granulocytes % 0.4 0.0 - 1.0 % 01/14/2025 9:48 AM EDT [facility] ([facility]) Immature Granulocytes Absolute 0.02 0.00 - 0.20 10*3/uL 01/14/2025 9:48 AM EDT [facility] ([facility]) Blood Venous blood specimen / Unknown Venipuncture / Unknown 01/14/2025 9:35 AM EDT 01/14/2025 9:35 AM EDT Rafael Robins MD LAB BLOOD ORDERABLES Final R esult Performing Organization Address City/[facility]/ZIP Co de Phone Number [facility] ([facility]) [address] [place] [address] * Type and screen (01/14/2025 9:35 AM EDT) ABO Grouping O 01/14/2025 10:24 AM EDT [facility] BLOOD BANK Rh Type POS 01/14/2025 10:24 AM EDT [facility] BLOOD BANK Ab Scrn NEG 01/14/2025 10:24 AM EDT [facility] BLOOD BANK Blood Venous blood specimen / Unknown Venipuncture / Unknown 01/14/2025 9:35 AM EDT 01/14/2025 9:35 AM EDT us Rafael Robins MD LAB BLOOD BANK TEST ORDERABL ES Final Result Performing Organization Address City/[facility]/ZIP Co de Phone Number [facility] BLOOD BANK * (ABNORMAL) POC Hb02% (01/14/2025 9:32 AM EDT) [id number]% 97.3(A) 90 - 95 % QC Pass/Fail Passed QC LOT # [id number] QC Expiration Date 73,126 SAMPLESITE nl Blood Venous blood specimen / Unknown 01/14/2025 9:32 AM EDT Narrative Jonas Blas MT - 01/15/2025 6:28 AM EDT Manager Life 5175 us Rafael Robins MD POINT OF [...] no complications. Additional notes: [place] Staffing Performed: resident/MOTION PICTURE SET WORKER/CAA Anesthesiologist: Lobo Machado MD Resident/MOTION PICTURE SET WORKER: Margaret Briceno MD Performed by: Irving Mendoza MD Authorized by: Lobo Machado MD us Lobo Machado MD ANESTHESIA ORDERABLES Final Re sult * W[place] AN ELECTIVE ENDOTRACHEAL AIRWAY (01/14/2025 8:52 AM EDT) Lobo Hilliard MD - 01/14/2025 8:52 AM EDT Irving Mendoza MD 01/14/2025 10:17 AM Airway Date/Time: 01/14/2025 8:52 AM Urgency: elective Airway not difficult General Information and Staff Patient location during procedure: [place] Anesthesiologist: Lobo Machado MD Resident/MOTION PICTURE SET WORKER/CAA: Margaret Briceno MD Performed: resident/MOTION PICTURE SET WORKER/CAA Indications and Patient Condition Indications for airway [...] - 105 mg/dL 01/14/2025 8:01 AM EDT [facility] ([facility]) Comment:[email or web address] Blood Capillary blood specimen / Unknown 01/14/2025 7:50 AM EDT 01/14/2025 8:01 AM EDT Narrative [facility] ([facility]) - 01/14/2025 8:01 AM EDT Waived Testing in the ED is performed under the ED CLIA certificate #[id number]. us Rafael Robins MD LAB BLOOD ORDERABLES Final R esult [facility] ([facility]) [address] [place], [place] [id number] * Protime-INR (01/14/2025 7:50 AM EDT) Protime 14.0 12.3 - 14.8 Seconds 01/14/2025 8:21 AM EDT [facility] ([facility]) INR 1.08 0.90 - 1.10 01/14/2025 8:21 AM EDT [facility] ([facility]) Comment: ACCCP RECOMMENDED INR FOR WARFARIN THERAPY [...] MD LAB BLOOD ORDERABLES Final R esult [facility] (BEAKER) [address] [place] [address] * CARDIAC DEVICE CHECK - REMOTE - PACEMAKER (12/13/2024 11:53 AM EDT) [facility] BSA 1.68 m2 [facility] Marco Peguero MD CV IMPLANTABLE CARDIAC DEVICE [place] OCEDURES Final Result Performing Organization Address [facility] Co de Phone Number [facility] * Cardiac device check - Remote pacemaker (12/04/2024 12:00 AM EDT) Anatomical Region Laterality Modality Other 12/04/2024 Marco Peguero MD CV IMPLANTABLE CARDIAC DEVICE WV OCEDURES Final Result * TRANSESOPHAGEAL ECHO (HAROON) W/ LIMITED DOPPLER AND COLOR FLOW (11/29/2024 9:47 AM EDT) Anatomical Region Laterality Modality Other 11/29/2024 8:58 AM EDT Narrative 11/29/2024 3:35 PM EDT 1 [facility] Heart Station [address] [facility] [place] [address] [phone] (fax) Transesophageal Echocardiogram-[facility] Name: ASYA ULLOA Study Date: 11/29/2024 08:58 AM B/P: 137 mmHg/62 mmHg HR: Date of : 1950 Location: [facility] Height: 65 in. Age: 74 year(s) Patient [...] Location: A HAROON was performed in the Assistant Professor Of Surgery without complications Anesthesia Pharyngeal anesthesia with viscous [...] No pericardial effusion. Procedure Staff Reading Group: [facility] Entry Level Installation Technician: Bigg Bill RDCS Ordering Physician: MARCO PEGUERO MD Procedure Note Shara Martinez MD - 11/29/2024 1 [facility] Heart Station [address] [facility] [place] [address] [phone] (fax) Transesophageal Echocardiogram-[facility] Name: ASYA ULLOA Study Date: 11/29/2024 08:58 AM B/P: 137 mmHg/62 mmHg HR: Date of : 1950 Location: [facility] Height: 65 in. Age: 74 year(s) Patient [...] Location: A HAROON was performed in the Assistant Professor Of Surgery without complications Anesthesia Pharyngeal anesthesia with viscous [...] No pericardial effusion. Procedure Staff Reading Group: [facility] Entry Level Installation Technician: Bigg Bill RDCS Ordering Physician: MARCO PEGUERO MD Marco Peguero MD CV ECHO PROCEDURES Final Result from Last 3 Months Insurance MEDICARE [facility] Advance Directives * Full Code (Latest Code Status on File) Date Activated Date Inactivated Comments 01/14/2025 2:43 PM 01/15/2025 7:02 PM * Full Code Date Activated Date Inactivated Comments 01/14/2025 2:43 PM 01/14/2025 2:43 PM Care Teams Financial Investment Manager Relationship Specialty Start Date End Date Hannah Brian MD [address] [place] [address] PCP - General Family Medicine 11/03/23
--- OUTSIDE RECORDS SUMMARY | 2025-02-07 13:38 | XMS_ITS | Encounter Summary ---
Author Organization [facility] Address [address] [place] [address] Care Team Providers Care Principal Database Developer Name Role Phone Hannah Brian MD Primary Care Provider [phone] Encounter Details Date Type Department Care Team (Late st Contact Info) Description 01/24/2025 Telephone [facility] at [facility] [address] [place] [address] Allison Jefferson MA Social History Tobacco Use Types Packs/Day Years Used Date Smoking Tobacco: Former Cigarettes Passive Smoke Exposure: Past Smokeless Tobacco: Never Passive Exposure Comments:so cial smoker stopped in 1989 Alcohol Use Standard Drinks/Week Comments Never 0 (1 standard drink = 0.6 oz pur e alcohol) [facility] Utilities Answer Date Recorded In the [...] were you homeless or living in a intermediate (including now)? No 01/14/2025 Hunger Vital Sign [...] Info) Description 02/10/2025 1:45 PM EDT Follow-Up [facility] [address] [facility] [place] [address] Rafael Robins MD [address] [facility] [address] [facility] [place] [address] 02/18/2025 3:45 PM EDT Ancillary Procedure [facility] [address] [facility] [place] [address] documented as of this encounter Visit Diagnoses Not on filedocumented in this encounter Care Teams Principal Database Developer Relationship Specialty Start Date End Date Hannah Brian MD [address] [place] [address] PCP - General Family Medicine 11/03/23 documented as of this encounter
--- OUTSIDE RECORDS SUMMARY | 2025-02-07 13:38 | XMS_ITS | Encounter Summary ---
Author Organization [facility] Address [address] [facility] [place] [address] Care Team Providers Care Fine Dining Server Name Role Phone Isaac Nazario MD Unavailable [phone] Isaac Nazario MD Primary Care Provider [phone] Hannah Brian MD Primary Care Provider [phone] Encounter Details Date Type Department Care Team [...] Visit [facility] [place] [address] [place] [address] Hannah Brian MD [address] [place] [address] documented as of this encounter Procedures Procedure Name Priority Date/Time Associated Diagnosis Comments ECHO 08/23/2023 2:15 PM EST documented in this encounter Results * ECHO (08/23/2023 2:15 PM EST) Anatomical Region Laterality Modality Other 08/23/2023 2:15 PM EST Addenda Addendum by Radiology, Radiologist, on 08/23/2023 5:14 PM EST Echocardiography Report: Transthoracic Echo [facility] J35 Date of service: 08/23/2023 2:15:32 PM ROOM SUPERVISOR Ordering physician: MICHELINE BARRIGA Indication: Valvular heart disease Technologist: Dede Coker [facility] Interpreting physician: To Brewer MD PATIENT: [...] * Final (Updated) * * * CC [employer] : [id number]^SyngoDynamics^SI^PATRICE D Narrative 08/23/2023 4:55 PM EST Echocardiography Report: Transthoracic Echo [facility] J35 Date of service: 08/23/2023 2:15:32 PM ROOM SUPERVISOR Ordering physician: MICHELINE BARRIGA Indication: Valvular heart disease Technologist: Dede Coker [facility] Interpreting physician: To Brewer MD PATIENT: [...] * * Final * * * CC [employer] : [id number]^SyngoDynamics^SI^SUID Procedure Note Radiology, Radiologist, - 08/24/2023 Echocardiography Report: Transthoracic Echo [facility] J35 Date of service: 08/23/2023 2:15:32 PM ROOM SUPERVISOR Ordering physician: MICHELINE BARRIGA Indication: Valvular heart disease Technologist: Dede Coker [facility] Interpreting physician: To Brewer MD PATIENT: [...] * * Final * * * CC [employer] Medical Image :[id number]^SyngoDynamics^SI^SUID us Generic External Data Provider [facility] Edited Result - Final documented in this encounter Visit Diagnoses Not on filedocumented in this encounter Care Teams Fine Dining Server Relationship Specialty Start Date End Date Isaac Nazario MD [address] [place] [address] PCP - ACO Reach 01/05/23 Isaac Nazario MD [address] [place] [address] PCP - General Family Medicine 02/08/23 11/02/23 Hannah Brian MD [address] [place] [address] PCP - General Family Medicine 11/03/23 documented as of this encounter
--- OUTSIDE RECORDS SUMMARY | 2025-02-07 13:38 | XMS_ITS ---
Author Organization [facility] Address [address] [place] [address] Care Team Providers Care Networks Computer Consultant Name Role Phone Isaac Nazario MD Unavailable [phone] Hannah Brian MD Primary Care Provider [phone] 30 Day Monitoring Program Status:Enrolled (Active) Start date:01/16/2025 Enrollment date:01/16/2025 Enrollment reason:Identified as hospital admit Case Team Name Relationship Phone Loida Nathan LPN(Responsible Staff) Licensed [facility] Nurse [phone] Continued Care and Services Coordination
--- OUTSIDE RECORDS SUMMARY | 2025-02-07 13:38 | XMS_ITS | Encounter Summary ---
Author Organization [facility] Address [address] [place] [address] Care Team Providers Care Shop Router Name Role Phone Isaac Nazario MD Unavailable [phone] Hannah Brian MD Primary Care Provider [phone] Encounter Details Date Type Department Care Team (Late st Contact Info) Description 01/28/2025 Patient Outreach [facility] [address] [place] [address] Loida Nathan LPN [address] [place] [address] Social History Tobacco Use Types Packs/Day Years [...] Flowsheet Row Patient Outreach from 01/28/2025 in [facility] with Loida Nathan LPN Week Number Call [...] Description 04/09/2025 3:20 PM EDT Office Visit [facility] [address] [place] [place] [address] Hannah Brian MD [address] [place] [address] documented as of this encounter Visit Diagnoses Diagnosis Atrial fibrillation with RVR (HCC)- Primary Palpitation Palpitations documented in this encounter Care Teams Shop Router Relationship Specialty Start Date End Date Isaac Nazario MD [address] [place] [address] PCP - ACO Reach 01/05/23 Hannah Brian MD [address] [place] [address] PCP - General Family Medicine 11/03/23 documented as of this encounter
--- OUTSIDE RECORDS SUMMARY | 2025-02-07 13:38 | XMS_ITS | Encounter Summary ---
Author Organization [facility] Address [address] [facility] [place] [address] Care Team Providers Care Technical Publications Manager Name Role Phone Isaac Nazario MD Unavailable [phone] Isaac Nazario MD Primary Care Provider [phone] Hannah Brian MD Primary Care Provider [phone] Encounter Details Date Type Department Care Team [...] Visit [facility] [place] [address] [place] [address] Hannah Brian MD [address] [place] [address] documented as of this encounter Procedures Procedure [...] 74 - 99 mg/dL [facility] Comment: The [place] Diabetes Association (ADA) provides guidance for cutoff [...] Standards of Medical Care in Diabetes 2016, [place] [employer]. Diabetes Care. 2016.39(Suppl 1). [facility] [...] EST Specimen Type: BLOOD SPECIMEN Ordering Facility: [facility] Address: [address] [place], [place] [id number] Original Ordering Provider: YECENIA GLEZ us Generic External Data Provider THOMAS cruz Result THOMAS [facility] [address] [facility] [address] [place] [address] * (ABNORMAL) [facility] NT-PROBNP SERPL-MCNC (08/23/2023 11:44 AM EST) [facility] NT-PROBNP SERPL-MCNC 3,265(H) <450 pg/mL [facility] 08/23/2023 11:4 4 AM EST 08/23/2023 12:11 PM EST Narrative [facility] - 08/23/2023 12:50 PM EST Specimen Type: BLOOD SPECIMEN Ordering Facility: [facility] Address: [address] [place] [address] Original Ordering Provider: YECENIA GLEZ us Generic External Data Provider [facility] F inal Result [facility] [address] [facility] [address] [place] [address] * [facility] CBC PNL BLD AUTO (08/23/2023 11:44 AM EST) Pathologist [facility] WBC # BLD AUTO 6.24 3.70 [...] EST Specimen Type: BLOOD SPECIMEN Ordering Facility: [facility] Address: [address] [place] [address] Original Ordering Provider: YECENIA GLEZ Generic External Data Provider THOMAS cruz Result Performing Organization Address [facility] Phone Number THOMAS JOHNSON [address] [phone] * (ABNORMAL) [facility] CREATININE BLD (08/23/2023 8:13 [...] AM EST 08/23/2023 9:43 AM EST Narrative [facility] - 08/23/2023 2:51 PM EST Specimen Type: BLOOD SPECIMEN Ordering Facility: [facility] Address: [address] [place] [address] Original Ordering Provider: MICHELINE BARRIGA Generic External Data Provider THOMAS cruz Result Performing Organization Address [facility] Phone Number THOMAS [facility] [address] [address] * CTA CHEST (GATED) W IVCON (08/23/2023 [...] AORTIC DIMENSIONS: AORTIC ROOT: 3.5 cm measured lxtdm-dc-ftotb Area cm2 mid ASCENDING THORACIC AORTA: 2.9 cm Area cm2 mid DESCENDING THORACIC AORTA: 2.2 cm limited upper ABDOMEN: unremarkable BONES: Unremarkable Training Technician (topogram) images: No additional findings. IMPRESSION: Dilated left ventricle, biatrial enlargement. Mitral valve is noncalcified. Normal caliber thoracic aorta. Archival Records Clerk: LILIANA Transcribe Date/Time: Aug 23 2023 11:20A Dictated by : SARAH CARNEY MD This examination was interpreted and the report reviewed and electronically signed by: SARAH CARNEY MD on Aug 23 2023 12:14PM EST [id number]^AGFA_IDC^SI^ACN Procedure Note Radiology, Radiologist, - 08/23/2023 * [...] AORTIC DIMENSIONS: AORTIC ROOT: 3.5 cm measured udbbr-pg-szvpo Area cm2 mid ASCENDING THORACIC AORTA: 2.9 cm Area cm2 mid DESCENDING THORACIC AORTA: 2.2 cm limited upper ABDOMEN: unremarkable BONES: Unremarkable Training Technician (topogram) images: No additional findings. IMPRESSION: Dilated left ventricle, biatrial enlargement. Mitral valve is noncalcified. Normal caliber thoracic aorta. Archival Records Clerk: PSCB Transcribe Date/Time: Aug 23 2023 11:20A Dictated by : SARAH CARNEY MD This examination was interpreted and the report reviewed and electronically signed by: SARAH ACRNEY MD on Aug 23 2023 12:14PM EST [id number]^AGFA_IDC^SI^ACN us Generic External Data Provider [facility] Final Result documented in this encounter Visit Diagnoses Not on filedocumented in this encounter Care Teams Technical Publications Manager Relationship Specialty Start Date End Date Isaac Nazario MD [address] [place] [address] PCP - ACO Reach 01/05/23 Isaac Nazario MD [address] [place] [address] PCP - General Family Medicine 02/08/23 11/02/23 Hannah Brian MD [address] [place] [address] PCP - General Family Medicine 11/03/23 documented as of this encounter
--- OUTSIDE RECORDS SUMMARY | 2025-02-07 13:38 | XMS_ITS | Encounter Summary ---
Author Organization [facility] Address [address] [facility] [place] [address] Care Team Providers Care Judicial Law Clerk Name Role Phone Peggy Whitley MD Unavailable [phone] Peggy Whitley MD Primary Care Provider [phone] Hannah Brian MD Primary Care Provider [phone] Encounter Details Date Type Department Care Team [...] 04/09/2025 3:20 PM EDT Office Visit [facility] [address] [place] [address] Hannah Brian MD [address] [place] [address] documented as of this encounter Procedures Procedure Name Priority Date/Time Associated Diagnosis Comments VASC US CAROTID ARTERY DUPLEX BILATERAL 10/18/2023 11:26 AM EST documented in this encounter Results * Vascular US carotid artery duplex bilateral (10/18/2023 11:26 AM EST) Anatomical Region Laterality Modality Neck Ultrasound 10/18/2023 11:2 6 AM EST Narrative 10/18/2023 11:29 AM EST The [address] [address] Ultrasound Report Signed Patient: ASYA ULLOA I MR#: [id number] : 1950 Acct:[id number] Age/Sex: 73 / F ADM Date: 10/18/23 Loc: CARD Attending Dr: Non-Staff Physician M.DElise Ordering Physician: Physician,Non-Staff M.Ruba Date of Service: 10/18/23 Procedure(s): US carotid duplex BI Accession Number(s): [id number] cc: PEGGY WHITLEY ; Physician,Non-Staff MAntonio The [address] [address] Patient Name: ASYA ULLOA MRN: [id number] date: 1950 Sex: F Assigned Patient Location: CARD Current Patient Location: CARD Accession/Order Number: [id number] Exam Date: 10/18/2023 09:50 Report Date: 10/18/2023 [...] Signed By: 10/18/23 1129 DD/ 1126 TD/TT: Search Engine Marketing Specialist: Procedure Note Radiology, Radiologist, MD - 10/18/2023 [place] [address] Ultrasound Report Signed Patient: ASYA ULLOA IMR#: [id number] : 1950cct:[id number] Age/Sex: 73 / FADM Date: 10/18/23 Loc: CARD Attending Dr: Non-Staff Physician Pedro Ordering Physician: PhysicianPat M.D. Date of Service: 10/18/23 Procedure(s): US carotid duplex BI Accession Number(s): [id number] cc: PEGGY WHITLEY ; PhysicianConradoStaff Pedro The [place] [address] Patient Name: ASYA ULLOA MRN: [id number] date: 1950 Sex: F Assigned Patient Location: CARD Current Patient Location: CARD Accession/Order Number: [id number] Exam Date: 10/18/2023 09:50 Report Date: 10/18/2023 [...] US Thresholds (Reference: Jonathan EG, et al. [id number]; 214:247-252) Stenosis (%) PSV (cm/sec) VICA/VCCA 0-49 <150 <2.5 50-69 150-225 2.5-4.0 >70 >225 >4.0 Electronically authenticated by: LEXA DYSON Date: 10/18/2023 11:26 Dictated By: Lexa Dyson M.D. Signed By:10/18/23 1129 DD/ 1126 TD/TT: Search Engine Marketing Specialist: us Generic External Data Provider IMG US PROCEDURES Final Result documented in this encounter Visit Diagnoses Not on filedocumented in this encounter Care Teams Judicial Law Clerk Relationship Specialty Start Date End Date Peggy Whitley MD [address] [place] [address] PCP - ACO Reach 01/05/23 Peggy Whitley MD [address] [place] [address] PCP - General Family Medicine 02/08/23 11/02/23 Hannah Brian MD [address] [place] [address] PCP - General Family Medicine 11/03/23 documented as of this encounter
--- OUTSIDE RECORDS SUMMARY | 2025-02-07 13:38 | XMS_ITS | Clinical Summary ---
Author Organization [facility] Address [address] [place] [address] Care Team Providers Care Phonograph Mechanic Name Role Phone Isaac Nazario MD Unavailable [phone] Hannah Brian MD Primary Care Provider [phone] Allergies Active Allergy Reactions Criticality Noted Date [...] the morning and 5 mg before bedtime. 07/11/20 23 Active Lipitor 40 MG tablet Take 40 mg by mouth Daily 07/05/20 23 Active spironolactone (Aldactone) 25 MG tablet Take 12.5 mg by mouth in the morning and 12.5 mg before bedtime. Active ondansetron ODT (Zofran-ODT) 4 MG disintegrating tabletIndications: Gastroesophageal reflux disease with esophagitis, unspecified whether hemorrhage Take 1 tablet (4 mg) by mouth every 8 (eight) hours if needed for vomiting or nausea 20 tablet 12/04/19 24 Active famotidine (Pepcid) 40 MG tabletIndications: Gastroesophageal reflux disease without esophagitis Take 1 tablet (40 mg) by mouth at bedtime 30 tablet 11 07/03/20 24 025 Active prednisoLONE acetate (Pred-Forte) 1 % ophthalmic suspension 07/31/20 24 Active carvedilol (Coreg) 3.125 MG tablet Take 3.125 mg by mouth in the morning and 3.125 mg in the evening. Take with meals. 08/20/19 25 Active neomycin-polymyxin -dexAMETHasone (Maxitrol) 3.5-81112-6.1 ophthalmic suspension 10/31/19 25 Active LORazepam (Ativan) 0.5 MG tabletIndications: Anxiety Take 1 tablet (0.5 mg) by mouth every 8 (eight) hours if needed for anxiety 90 tablet 01/17/20 25 Active carvedilol (Coreg) 6.25 MG tablet 07/03/20 24 025 Discontinu ed(Therapy completed) LORazepam (Ativan) 0.5 MG tabletIndications: Anxiety TAKE 1 TABLET BY MOUTH EVERY 8 HOURS NEEDED FOR ANXIETY 90 tablet 12/18/19 25 025 Discontinu ed(Reorder ) LORazepam (Ativan) 0.5 MG tabletIndications: Anxiety Take 1 tablet (0.5 mg) by mouth every 8 (eight) hours if needed for anxiety 90 tablet 01/14/20 25 025 Discontinu ed(Reorder ) ciprofloxacin (Ciloxan) 0.3 % ophthalmic solution 01/31/20 25 025 Active Problems Problem Noted Date Diagnosed Date 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 [id number] Loida Nathan LPN 01/31/2025 Patient Outreach [facility] [address] [place] [address] Jac Loida, TELECOM MANAGER 01/28/2025 Patient Outreach [facility] [address] 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 [address] Loida Nathan, TELECOM MANAGER 01/20/2025 Patient Outreach [facility] [address] [place] [address] Jac Loida, TELECOM MANAGER 01/16/2025 Patient Outreach [facility] [address] [place] [address] Sana Lei, TELECOM MANAGER 01/13/2025 Patient Outreach [facility] [address] [place] [address] Loida Nathan, TELECOM MANAGER 01/13/2025 Refill [facility] [address] [place] [address] [facility] [place] Anxiety 01/10/2025 Patient Outreach [facility] [address] [place] [address] Jarred Nathanmy, TELECOM MANAGER 01/07/2025 3:20 PM EDT Office Visit [facility] [address] [place] [address] Hannah Brian MD Atrial fibrillation, persistent (HCC) (Primary Dx); USP 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; Primary hypertension ; Anxiety; Panic attack 01/07/2025 Bamboo flowsheet [facility] [address] [place] [address] Hannah Brian MD 01/07/2025 Travel 12/19/2024 Results Follow-Up [facility] [address] [place] [address] Hannah Brian MD 12/17/2024 3:20 PM EDT Office Visit [facility] [address] [place] [address] Hannah Brian MD Hematuria, unspecified type (Primary Dx); Right flank pain; Dysuria; Urinary frequency 12/17/2024 Bamboo flowsheet [place] [address] [place] [address] Hannah Brian MD 12/17/2024 Travel 12/16/2024 Refill [facility] [address] 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; Atrial fibrillation, persistent (HCC); Primary hypertension ; Cardiomyopathy, unspecified (HCC) 11/25/2024 Bamboo flowsheet [place] [address] [place] [address] Hannah Brian MD 11/25/2024 Travel 11/18/2024 11:40 AM EDT Office Visit [facility] [address] [place] [address] Hannah Brian MD Acute cough (Primary Dx); Hematuria, unspecified type; 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 computer 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; Atrial fibrillation, persistent (HCC); Primary hypertension 11/18/2024 External Result Encounter [facility] External Department Unsolicited Hannah Brian MD 11/18/2024 Travel 11/18/2024 Patient Outreach [facility] [address] [place] [address] Loida Nathan TELECOM MANAGER 11/15/2024 Refill [facility] [address] [place] [place] [address] Hannah Brian MD Anxiety from Last 3 [...] Office Visit [facility] [address] [place] [address] Hannah Brian MD [address] [place] [address] Health Maintenance Due Date Last Done Comments Pneumococcal Vaccine: 65+ Ye ars (1 of 2 - PCV) 1969 Colonoscopy Discontinued 02/15/2018, 02/15/2018 Colorectal Cancer Screening Discontinued Mammogram Discontinued 12/05/2022, 020 01/2023, 08/03/2020, Additional history exists CT Colonography [...] - 12/19/2024 8:35 AM EDT Performed at: [address] [place] [id number] Facilities Clerk: Evelio Diaz PhD, Phone: [phone] Hannah Brian MD LAB URINE ORDERABLES Final Re sult Performing Organization Address [facility] Co de Phone Number [facility] * Urine culture (12/17/2024 3:54 PM EDT) Only the most recent of2 resultswithin the time period is included. Pathologist [facility] Urine Cult Rt Status Final report [facility] Urine Urine specimen obtained by clean catch procedure / Unknown 12/17/2024 3:54 PM EDT 12/17/2024 Comment: Narrative [facility] - 12/19/2024 8:35 AM EDT Performed at: [address] [place] [id number] Facilities Clerk: Evelio Diaz PhD, Phone: [phone] us Hannah Brian MD LAB MICROBIOLOGY - GENERAL OR DERABLES Final Result Performing Organization Address [facility]/ZIP Co de Phone Number [facility] * (ABNORMAL) POCT Urinalysis dipstick (12/17/2024 3:49 PM EDT) Only the most recent of2 resultswithin the time period is included. Color, UA Yellow Clarity, UA Clear Glucose, UA Negative Negative - 2000(110) ++++ mg/dL Bilirubin, UA Negative Negative - 4(70) +++ mg/dL Ketones, UA Negative Negative - 160(16) ++++ mg/dL Spec Grav, UA 1.005 1 - 1.03 Blood, UA Positive Negative - 50 Pedro/mcL pH, UA 6.0 5 - 9 Protein, UA Negative Negative - 2000(20) ++++ mg/dL Urobilinogen, UA 0.2 0.2 - 12 mg/dL Leukocytes, UA Negative Negative - 500+++ Ghislaine/mcL Nitrite, UA Negative Negative - Positive Urine 12/17/2024 3:49 PM EDT us Hannah Brian MD POINT OF CARE TEST ENTER/EDIT ORDERABLES Final Result * Bilateral screening mammogram with tomosynthesis (12/05/2022) Anatomical Region Laterality Modality Breast Bilateral Mammography Narrative 12/05/2022 12:00 AM EDT PERFORMED AT [facility] LOCATION:[place] [address] Exam Date/Time: 12/05/2022 15:01 EDT Reason for [...] very important to your health. The current [employer] [place] [employer] and National [employer] Network guidelines recommends annual mammography beginning at age 40. This facility utilizes a reminder system to ensure all patients receive reminder notifications at the appropriate time based on the recommendations of this exam. Board Certified Radiologists. Accredited by the ACR and FDA. Ordering Provider: Aravind Gray FINAL REPORT Dictated: 12/06/2022 4:48 pm Jenifer Fisher Signed (Electronic Signature): 12/06/2022 4:48 pm Signed by: Jenifer Fisher Transcribed by: ARAVIND Technologist: VIANCA Assessment: BI-RADS Category 2-Benign finding Recommendation: Normal interval follow-up Procedure Note CONVERSION, GENERIC - 02/17/2023 PERFORMED AT [facility] LOCATION:[place] [address] Exam Date/Time: 12/05/2022 15:01 EDT Reason for [...] very important to your health. The current [employer] [place] [employer] and National Comprehensive Cancer Network guidelines recommendsannual mammography beginning at age 40. This facility utilizes a reminder system to ensure all patients receivereminder notifications at the appropriate time based on the recommendations of thisexam. Board Certified Radiologists. Accredited by the ACR and FDA. Ordering Provider: Aravind Gray FINAL REPORT Dictated: 12/06/2022 4:48 pm Jenifer Fisher Signed (Electronic Signature): 12/06/2022 4:48 pm Signed by: Jenifer Fisher Transcribed by: ARAVIND Technologist: VIANCA Assessment: BI-RADS Category 2-Benign finding Recommendation: Normal interval follow-up us Isaac Nazario MD IMG BI PROCEDURES Final Result * Colonoscopy (02/15/2018 12:00 PM EDT) Anatomical Region Laterality Modality Endoscopy 02/15/2018 12:0 0 PM EDT Narrative 02/15/2018 12:00 PM EDT PERFORMED AT [facility] LOCATION:[id number] Procedure Note CONVERSION, GENERIC - 12/28/2022 PERFORMED AT [facility] LOCATION:[id number] us Isaac Nazario MD ENDOSCOPY PROCEDURE ORDERABLES Final Result from Last 3 Months or Most Recently Relevant to Health Maintenance Insurance MEDICARE [facility] Care Teams Phonograph Mechanic Relationship Specialty Start Date End Date Isaac Nazario MD [address] [place] [address] PCP - ACO Reach 01/05/23 Hannah Brian MD [address] [place] [address] PCP - General Family Medicine 11/03/23
--- OUTSIDE RECORDS SUMMARY | 2025-02-07 13:38 | XMS_ITS | Referral Summary ---
Author Organization [facility] Address [address] [place] [address] Care Team Providers Care Call Center Representative Name Role Phone Hannah Brian MD Primary Care Provider Encounters Date Type Department Care Team Description 01/24/2025 Telephone [facility] [address] [place] [address] Allison Jefferson MA 01/23/2025 2:40 PM EDT Follow-Up [facility] [address] [place] [address] Niecy Mazariegos CNP Nonrheumatic mitral valve regurgitation (Primary Dx); Severe mitral regurgitation; S/P mitral valve repair; Primary hypertension; Chronic systolic heart failure (CMS/HCC); Nonrheumatic tricuspid valve regurgitation; Paroxysmal atrial fibrillation (CMS/HCC); Presence of biventricular automatic cardioverter/defibril lator (AICD); Cardiac pacemaker in situ 01/15/2025 Telephone [facility] [address] [place] [address] Allison Jefferson MA 01/14/2025 7:06 AM EDT - 01/15/2025 5:01 PM EDT Hospital Encounter [facility] [address] [place] [id number] Rafael Robins MD Severe mitral regurgitation (Primary Dx); Nonrheumatic mitral valve regurgitation; Primary hypertension Discharge Disposition: Home or Self Care () 01/14/2025 Travel 01/14/2025 8:30 AM EDT - 01/14/2025 10:30 AM EDT Surgery [facility] Vascular [facility] [address] [place] [address] Rafael Robins MD Transcatheter mitral valve repair [[id number]] 01/14/2025 8:31 AM EDT Anesthesia Event [facility] [address] [facility] [place] [address] Lobo Machado MD 01/13/2025 Orders Only [facility] Pre-Anesthesia Clinic [address] [facility] [place] [address] Niecy Benito RN 01/09/2025 Orders Only [address] [address] Allison Jefferson MA Status post transcatheter aortic valve replacement 01/09/2025 Travel 01/08/2025 Orders Only [facility] [address] [place] [address] Rafia Roger CNP Nonrheumatic mitral valve regurgitation (Primary Dx) 12/24/2024 Telephone [facility] [address] [place] [address] Allison Jefferson MA 12/23/2024 1:30 PM EDT Office Visit [address] [address] Rafael Robins MD Nonrheumatic mitral valve regurgitation (Primary Dx); Chronic systolic heart failure (CMS/HCC); Nonrheumatic tricuspid valve regurgitation; Coronary artery disease involving eek coronary artery of eek heart without angina pectoris; Presence of biventricular automatic cardioverter/defibril lator (AICD); Longstanding persistent atrial fibrillation (CMS/HCC) 12/04/2024 Orders Only [facility] Card[facility] [address] [place] [address] Marco Peguero MD 11/29/2024 Travel 11/29/2024 6:56 AM EDT - 11/29/2024 11:59 PM EDT Hospital Encounter [facility] Heart [facility] Vascular [facility] Vascular Lab [address] [place] [address] Nonrheumatic mitral valve regurgitation Discharge Disposition: Home or Self Care () 11/22/2024 Travel 11/22/2024 Telephone [facility] Heart [facility] Vascular Center Vascular Lab [address] [place] [address] Rocio Underwood, ROCÍO from Last 3 Months [...] 6 month interrogation Paroxysmal atrial fibrillation 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 No 01/14/2025 Hunger Vital Sign [...] Info) Description 02/10/2025 1:45 PM EDT Follow-Up [address] [address] Rafael Robins MD [address] [facility] [place] [phone] 02/18/2025 3:45 PM EDT Ancillary Procedure [facility] [address] [place] [address] Medical Devices Implanted Type Area Fashion Design Professor Device Identifier Shelf Expiration Date Model / Serial / Lot Visionist X4 Is-1/Is4 Implanted:Qty: 1 on 02/28/2024 by Marco Peguero MD at [facility] Device [employer] [id number] 01/25/2026 [id number] / [id number] / System,Mitracl ip,G4,Xtw - [id number] Implanted:Qty: 1 on 01/14/2025 by Rafael Robins MD at [facility] Device N/A: Heart [employer] [id number] 03/26/2025 [id number] / / [id number] Ingevity+ Is-1 Bi Positive Fix Ra/Rv 52cm Implanted:Qty: 1 on 02/28/2024 by Marco Peguero MD at [facility] Lead [employer] [id number] 01/28/2026 [id number] / [id number] / Lead,Acuity X4,Straight - [id number] - [id number] Implanted:Qty: 1 on 02/28/2024 by Marco Peguero MD at [facility] Lead [employer] [id number] 01/17/2026 [id number] / [id number] / Procedures Procedure Name Priority Date/Time Associated [...] LINE PLACEMENT Routine 01/14/2025 9:04 AM EDT MA AN ELECTIVE ENDOTRACHEAL AIRWAY Routine 01/14/2025 8:52 [...] QTC CALCULATION(BAZE TT) 455 ms GE MUSE R-Lucas 116 degrees GE MUSE T Wave Lucas 14 degrees GE MUSE 01/15/2025 10:4 0 [...] Narrative 01/15/2025 12:08 PM EDT 1 1 [facility] Heart Station [address] [place] [address] [phone] (fax) Echocardiogram-[facility] Name: ASYA ULLOA Study Date: 01/15/2025 09:13 AM B/P: 89 mmHg/71 mmHg HR: 70 bpm Date of : 1950 Location: [facility] Height: 65 in. Age: 74 year(s) Patient Room: [facility] Weight: 138 lb. Gender: Female Patient Status: [...] No pericardial effusion. Procedure Staff Reading Group: [facility] Customer Experience Consultant: NETTIE Meeks, RDCS Ordering Physician: Rafael Robins MD Wall Motion Scores -1 - hyperkinesia, 0 - not evaluated, 1 - normal, 2 - hypokinesia, 3 - akinesia, 4 - dyskinesia Procedure Note Shara Martinez MD - 01/15/2025 1 1 [facility] Heart Station [address] [place] [address] [phone] (fax) Echocardiogram-[facility] Name: ASYA ULLOA Study Date: 01/15/2025 09:13 AM B/P: 89 mmHg/71 mmHg HR: 70 bpm Date of : 1950 Location: [facility] Height: 65 in. Age: 74 year(s) Patient Room: [facility] Weight: 138 lb. Gender: Female Patient Status: [...] No pericardial effusion. Procedure Staff Reading Group: [facility] Customer Experience Consultant: NETTIE Meeks, RDCS Ordering Physician: Rafael Robins [...] - 10.60 10*3/uL 01/15/2025 6:09 AM EDT [facility] (BEJAZMIN) RBC 4.48 3.80 - 5.00 10*6/uL 01/15/2025 6:09 AM EDT [facility] ([facility]) Hemoglobin 13.6 12.0 - 15.0 g/dL 01/15/2025 6:09 AM EDT [facility] ([facility]) Hematocrit 45.2(H) 36.0 - 45.0 % 01/15/2025 6:09 AM EDT [facility] ([facility]) MCV 100.9(H) 82.0 - 98.0 fL 01/15/2025 6:09 AM EDT [facility] ([facility]) MCH 30.4 27.0 - 33.0 pg 01/15/2025 6:09 AM EDT [facility] ([facility]) MCHC 30.1(L) 32.0 - 35.0 g/dL 01/15/2025 6:09 AM EDT [facility] ([facility]) RDW 13.4 11.5 - 15.0 % 01/15/2025 6:09 AM EDT [facility] ([facility]) Platelets 176 150 - 400 10*3/uL 01/15/2025 6:09 AM EDT [facility] ([facility]) Blood Venous blood specimen / Unknown Venipuncture / Unknown 01/15/2025 5:23 AM EDT 01/15/2025 5:32 AM EDT us Rafia Roger [facility] BLOOD ORDERABLES Final Re sult [facility] ([facility]) [address] [place] [address] * (ABNORMAL) Basic metabolic panel (01/15/2025 5:23 AM EDT) Only the most recent of3 resultswithin the time period is included. Sodium 133(L) 136 - 145 mmol/L 01/15/2025 5:55 AM EDT [facility] ([facility]) Potassium 4.7 3.5 - 5.1 mmol/L 01/15/2025 5:55 AM EDT [facility] ([facility]) Chloride 106 98 - 107 mmol/L 01/15/2025 5:55 AM EDT [facility] ([facility]) CO2 19(L) 21 - 31 mmol/L 01/15/2025 5:55 AM EDT [facility] ([facility]) BUN 16 7 - 25 mg/dL 01/15/2025 5:55 AM EDT [facility] ([facility]) Creatinine 0.84 0.60 - 1.20 mg/dL 01/15/2025 5:55 AM EDT [facility] ([facility]) Glucose 123(H) 70 - 100 mg/dL 01/15/2025 5:55 AM EDT [facility] ([facility]) Calcium 8.3(L) 8.6 - 10.3 mg/dL 01/15/2025 5:55 AM EDT [facility] ([facility]) Anion Gap 13 7 - 20 mmol/L 01/15/2025 5:55 AM EDT [facility] ([facility]) eGFR 72.0 >60.0 mL/min/1. 73m*2 01/15/2025 5:55 AM EDT [facility] ([facility]) Comment:[facility] s estimated glomerular filtration rate (eGFR) [...] Ratio 19.0 06/0 11/2024 5:55 AM EDT [facility] ([facility]) Blood Venous blood specimen / Unknown Venipuncture / Unknown 01/15/2025 5:23 AM EDT 01/15/2025 5:31 AM EDT us Rafia Roger [facility] BLOOD ORDERABLES Final Re sult [facility] ([facility]) [address] [place] [address] * TRANSESOPHAGEAL ECHO (HAROON) W/ LIMITED DOPPLER AND COLOR FLOW (01/14/2025 11:39 AM EDT) Anatomical Region Laterality Modality Other 01/14/2025 7:49 AM EDT Narrative 01/14/2025 3:59 PM EDT 1 [facility] Heart Station [address] [place] [address] [phone] (fax) Transesophageal Echocardiogram-[facility] Name: ASYA ULLOA Study Date: 01/14/2025 07:49 AM B/P: 122 mmHg/67 mmHg HR: 71 bpm Date of : 1950 Location: [facility] Height: 65 in. Age: 74 year(s) Patient Room: 3186 Weight: 135 lb. Gender: Female Patient Status: InPt BSA: 1.67 m2 Indication: Mitral regurgitation, Mitral clip procedure Examination: HAROON/Limited Doppler/CFI Image Quality: Good Patient Consent: Informed, written consent was obtained for the procedure Exam Location: A HAROON was performed in the Mogul Operator without complications Anesthesia Performed under General Anesthesia [...] post transseptal puncture. Procedure Staff Reading Group: [facility] Customer Experience Consultant: NETTIE Meeks, RDCS Ordering Physician: RAFIA ROGER Procedure Note Shara Martinez MD - 01/14/2025 1 [facility] Heart Station [address] [place] [address] [phone] (fax) Transesophageal Echocardiogram-[facility] Name: ASYA ULLOA Study Date: 01/14/2025 07:49 AM B/P: 122 mmHg/67 mmHg HR: 71 bpm Date of : 1950 Location: [facility] Height: 65 in. Age: 74 year(s) Patient Room: 3186 Weight: 135 lb. Gender: Female Patient Status: InPt BSA: 1.67 m2 Indication: Mitral regurgitation, Mitral clip procedure Examination: HAROON/Limited Doppler/CFI Image Quality: Good Patient Consent: Informed, written consent was obtained for the procedure Exam Location: A HAROON was performed in the Mogul Operator without complications Anesthesia Performed under General Anesthesia [...] post transseptal puncture. Procedure Staff Reading Group: [facility] Customer Experience Consultant: NETTIE Meeks, RDCS Ordering Physician: RAFIA ROGER [...] - 01/15/2025 6:43 AM EDT Qc lot [id number]; pest control operator [id number] Rafael Robins MD POINT OF [...] today for that purpose. PROCEDURES: Successful transcatheter nnto-nc-ioty repair (ANA) of the mitral valve using XTW MitraClip device. Transseptal puncture performed under fluoroscopic and transesophageal echocardiography guidance. Preclosure in the right common femoral vein using two 6-Bermudian ProGlide devices. Access into the right and left common femoral vein under ultrasound guidance. OPERATORS: Interventional Dough Mixer Operator: Rafael Robins MD. Zinc Plate Cutter Interventional Dough Mixer Operator: Chi Bejarano MD. Interventional Appian Developer: Dr Hunter Mittal. METHODS: Procedure was explained to the patient with risks and benefits. she signed informed consent. she was brought to hoisting laborer in a fasting state. The procedure was performed in the cardiac hoisting laborer under general anesthesia administered by the [...] the left common femoral vein and a 4-Bermudian x 11 cm sheath was placed in order to gain central venous access for administration of medications and fluids. Micropuncture technique and ultrasound guidance were used for access in the right common femoral vein and a 6-Bermudian x 11 cm sheath was placed. A preclosure in the right common femoral vein was performed using two 6-Bermudian ProGlide devices. The access sheath was then [...] at the end of the procedure. The 4-Bermudian left femoral venous sheath was removed and [...] 9:48 AM EDT [facility] ([facility]) RBC 3.80 3.80 - 5.00 10*6/uL 01/14/2025 9:48 AM EDT [facility] ([facility]) Hemoglobin 11.8(L) 12.0 - 15.0 g/dL 01/14/2025 9:48 AM EDT [facility] ([facility]) Hematocrit 35.8(L) 36.0 - 45.0 % 01/14/2025 9:48 AM EDT [facility] ([facility]) MCV 94.2 82.0 - 98.0 fL 01/14/2025 9:48 AM EDT [facility] ([facility]) MCH 31.1 27.0 - 33.0 pg 01/14/2025 9:48 AM EDT [facility] ([facility]) MCHC 33.0 32.0 - 35.0 g/dL 01/14/2025 9:48 AM EDT [facility] ([facility]) RDW 13.4 11.5 - 15.0 % 01/14/2025 9:48 AM EDT [facility] ([facility]) Neutrophils % 61.6 40.0 - 72.0 % 01/14/2025 9:48 AM EDT [facility] ([facility]) Lymphocytes % 27.7 20.0 - 45.0 % 01/14/2025 9:48 AM EDT [facility] ([facility]) Monocytes % 8.3 5.0 - 12.0 % 01/14/2025 9:48 AM EDT [facility] ([facility]) Eosinophils % 1.4 0.0 - 6.0 % 01/14/2025 9:48 AM EDT [facility] ([facility]) Basophils % 0.6 0.0 - 1.0 % 01/14/2025 9:48 AM EDT [facility] ([facility]) Neutrophils Absolute 2.98 1.60 - 7.60 10*3/uL 01/14/2025 9:48 AM EDT [facility] ([facility]) Lymphocytes Absolute 1.34 1.20 - 4.00 10*3/uL 01/14/2025 9:48 AM EDT [facility] ([facility]) Monocytes Absolute 0.40 0.10 - 1.00 10*3/uL 01/14/2025 9:48 AM EDT [facility] ([facility]) Eosinophils Absolute 0.07 0.00 - 0.50 10*3/uL 01/14/2025 9:48 AM EDT [facility] ([facility]) Basophils Absolute 0.03 0.00 - 0.20 10*3/uL 01/14/2025 9:48 AM EDT [facility] ([facility]) Platelets 178 150 - 400 10*3/uL 01/14/2025 9:48 AM EDT [facility] ([facility]) nRBC % 0.0 0 % 01/14/2025 9:48 AM EDT [facility] ([facility]) Immature Granulocytes % 0.4 0.0 - 1.0 % 01/14/2025 9:48 AM EDT [facility] ([facility]) Immature Granulocytes Absolute 0.02 0.00 - 0.20 10*3/uL 01/14/2025 9:48 AM EDT [facility] ([facility]) Blood Venous blood specimen / Unknown Venipuncture / Unknown 01/14/2025 9:35 AM EDT 01/14/2025 9:35 AM EDT Rafael Robins MD LAB BLOOD ORDERABLES Final R esult [facility] ([facility]) [address] [place] [address] * Type and screen (01/14/2025 9:35 AM EDT) ABO Grouping O 01/14/2025 10:24 AM EDT [facility] Rh Type POS 01/14/2025 10:24 AM EDT [facility] Ab Scrn NEG 01/14/2025 10:24 AM EDT [facility] Blood Venous blood specimen / Unknown Venipuncture / Unknown 01/14/2025 9:35 AM EDT 01/14/2025 9:35 AM EDT us Rafael Robins MD LAB BLOOD BANK TEST ORDERABL ES Final Result [facility] * (ABNORMAL) POC Hb02% (01/14/2025 9:32 AM EDT) [id number]% 97.3(A) 90 - 95 % QC Pass/Fail Passed QC LOT # [id number] QC Expiration Date 73,126 SAMPLESITE nl Blood Venous blood specimen / Unknown 01/14/2025 9:32 AM EDT Jonas Hyde MT - 01/15/2025 6:28 AM EDT Dough Mixer Operator [id number] Rafael Robins MD POINT OF CARE [...] no complications. Additional notes: [place] Staffing Performed: resident/SENIOR PREMIUM AUDITOR/CAA Anesthesiologist: Lobo Machado MD Resident/SENIOR PREMIUM AUDITOR: Margaret Briceno MD Performed by: Irving Mendoza MD Authorized by: Lobo Machado MD Lobo Machado MD ANESTHESIA ORDERABLES Final Re sult * MA AN ELECTIVE ENDOTRACHEAL AIRWAY (01/14/2025 8:52 AM EDT) Lobo Hilliard MD - 01/14/2025 8:52 AM EDT Irving Mendoza MD 01/14/2025 10:17 AM Airway Date/Time: 01/14/2025 8:52 AM Urgency: elective Airway not difficult General Information and Staff Patient location during procedure: [place] Anesthesiologist: Lobo Machado MD Resident/SENIOR PREMIUM AUDITOR/CAA: Margaret Briceno MD Performed: resident/SENIOR PREMIUM AUDITOR/CAA Indications and Patient Condition Indications for airway [...] - 105 mg/dL 01/14/2025 8:01 AM EDT [facility] ([facility]) Comment:[email or web address] Blood Capillary blood specimen / Unknown 01/14/2025 7:50 AM EDT 01/14/2025 8:01 AM EDT Narrative [facility] ([facility]) - 01/14/2025 8:01 AM EDT Waived Testing in the ED is performed under the ED CLIA certificate #[id number]. us Rafael Robins MD LAB BLOOD ORDERABLES Final R esult [facility] ([facility]) [address] [place] [address] * Protime-INR (01/14/2025 7:50 AM EDT) Protime 14.0 12.3 - 14.8 Seconds 01/14/2025 8:21 AM EDT [facility] ([facility]) INR 1.08 0.90 - 1.10 01/14/2025 8:21 AM EDT [facility] ([facility]) Comment: ACCCP RECOMMENDED INR FOR [...] MD LAB BLOOD ORDERABLES Final R esult [facility] (BEAKER) [address] [place] [address] * CARDIAC DEVICE CHECK - REMOTE - PACEMAKER (12/13/2024 11:53 AM EDT) [facility] BSA 1.68 m2 [facility] Marco Peguero MD CV IMPLANTABLE CARDIAC DEVICE [place] OCEDURES Final Result [facility] * Cardiac device check - Remote pacemaker (12/04/2024 12:00 AM EDT) Anatomical Region Laterality Modality Other 12/04/2024 Marco Peguero MD CV IMPLANTABLE CARDIAC DEVICE [place] OCEDURES Final Result * TRANSESOPHAGEAL ECHO (HAROON) W/ LIMITED DOPPLER AND COLOR FLOW (11/29/2024 9:47 AM EDT) Anatomical Region Laterality Modality Other 11/29/2024 8:58 AM EDT Narrative 11/29/2024 3:35 PM EDT 1 [facility] Heart Station [address] [place] [address] [phone] (fax) Transesophageal Echocardiogram-[facility] Name: ASYA ULLOA Study Date: 11/29/2024 08:58 AM B/P: 137 mmHg/62 mmHg HR: Date of : 1950 Location: [facility] Height: 65 in. Age: 74 [...] Location: A HAROON was performed in the Mogul Operator without complications Anesthesia Pharyngeal anesthesia with viscous [...] No pericardial effusion. Procedure Staff Reading Group: [facility] Customer Experience Consultant: Bigg Bill RDCS Ordering Physician: MARCO PEGUERO MD Procedure Note Shara Martinez MD - 11/29/2024 1 [facility] Heart Station [address] [place] [address] [phone] (fax) Transesophageal Echocardiogram-[facility] Name: ASYA ULLOA Study Date: 11/29/2024 08:58 AM B/P: 137 mmHg/62 mmHg HR: Date of : 1950 Location: [facility] Height: 65 in. Age: 74 [...] Location: A HAROON was performed in the Mogul Operator without complications Anesthesia Pharyngeal anesthesia with viscous [...] No pericardial effusion. Procedure Staff Reading Group: [facility] Customer Experience Consultant: Bigg Bill RDCS Ordering Physician: MARCO PEGUERO MD Marco Peguero MD CV ECHO PROCEDURES Final Result from Last 3 Months Insurance MEDICARE [facility] Advance Directives * Full Code (Latest Code Status on File) Date Activated Date Inactivated Comments 01/14/2025 2:43 PM 01/15/2025 7:02 PM * Full Code Date Activated Date Inactivated Comments 01/14/2025 2:43 PM 01/14/2025 2:43 PM Care Teams Call Center Representative Relationship Specialty Start Date End Date Hannah Brian MD [address] [place] [address] PCP - General Family Medicine 11/03/23
--- OUTSIDE RECORDS SUMMARY | 2025-02-07 13:38 | XMS_ITS | Encounter Summary ---
Author Organization [facility] Address [address] [place] [address] Care Team Providers Care Digital Media Producer Name Role Phone Hannah Brian MD Primary Care Provider Encounter Details Date Type Department Care Team (Late st Contact Info) Description 12/04/2024 Orders Only [facility] [address] [place] [address] Marco Peguero MD [address] [place] [address] Social History Tobacco Use Types [...] Info) Description 02/10/2025 1:45 PM EDT Follow-Up [facility] [address] [facility] [address] Rafael Robins MD [address] [facility] [place] [address] 02/18/2025 3:45 PM EDT Ancillary Procedure [facility] [address] [facility] [place] [address] documented as of this encounter Procedures Procedure Name Priority Date/Time Associated Diagnosis Comments CARDIAC DEVICE CHECK - REMOTE - PACEMAKER Routine 12/04/2024 12:00 AM EDT documented in this encounter Results * Cardiac device check - Remote pacemaker (12/04/2024 12:00 AM EDT) Anatomical Region Laterality Modality Other 12/04/2024 us Marco Peguero MD CV IMPLANTABLE CARDIAC DEVICE [place] OCEDURES Final Result documented in this encounter Visit Diagnoses Not on filedocumented in this encounter Care Teams Digital Media Producer Relationship Specialty Start Date End Date Hannah Brian MD [address] [place] [address] PCP - General Family Medicine 11/03/23 documented as of this encounter
--- OUTSIDE RECORDS SUMMARY | 2025-02-07 13:39 | XMS_ITS | Encounter Summary ---
Author Organization [facility] Address [address] [facility] [place] [address] Care Team Providers Care Banking Services Officer Name Role Phone Isaac Nazario MD Unavailable [phone] Isaac Nazario MD Primary Care Provider [phone] Hannah Brian MD Primary Care Provider [phone] Encounter Details Date Type Department Care Team [...] 04/09/2025 3:20 PM EDT Office Visit [facility] [address] [place] [address] Hannah Brian MD [address] [place] [address] documented as of this encounter Procedures Procedure Name Priority Date/Time Associated Diagnosis Comments RT PULMONARY FUNCTION TEST 10/18/2023 8:58 AM EST documented in this encounter Results * RT PULMONARY FUNCTION TEST (10/18/2023 8:58 AM EST) Anatomical Region Laterality Modality Other 10/18/2023 8:58 AM EST Narrative 10/18/2023 6:26 PM EST The [address] [address] Respiratory Report Signed Patient: ASYA ULLOA I MR#: [id number] : 1950 Acct:[id number] Age/Sex: 73 / F ADM Date: 10/18/23 Loc: CARD Attending Dr: Non-Staff Physician Pedro Ordering Physician: PhysicianConradoStaff Pedro Date of Service: 10/18/23 Procedure(s): RT pulmonary function test Accession Number(s): [id number] cc: [facility] Test Date: 2023-10-18 Pat Name: ASYA ULLOA Department: Room: - Gender: Female Pipe Fitter Helper: Dave Arreola RRT : 1950 Requested By: [id number] Order Number: [id number] Reading MD: Barrington Rosa Interpretive Statements Spirometry [...] Signed By: 10/18/23 1826 DD/ 0858 TD/TT: Central Office Repairer Supervisor: Procedure Note Radiology, Radiologist, - 10/18/[address] [address] Respiratory Report Signed Patient: ASYA ULLOA IMR#: [id number] : 8Acct:[id number] Age/Sex: 73 / FADM Date: 10/18/23 Loc: CARD Attending Dr: Non-Staff Physician Pedro Ordering Physician: PhysicianConradoStaff Pedro Date of Service: 10/18/23 Procedure(s): RT pulmonary function test Accession Number(s): [id number] cc: [facility] Test Date: 2023-10-18 Pat Name: ASYA ULLOA Department: Room: - Gender: Female Pipe Fitter Helper: Dave Arreola RRT : 1950 Requested By: [id number] Order Number: [id number] Reading MD: Barrington Rosa Interpretive Statements Spirometry [...] D.O. Signed By:10/18/23 1826 DD/ 0858 TD/TT: Central Office Repairer Supervisor: us Generic External Data Provider [facility] Final Result documented in this encounter Visit Diagnoses Not on filedocumented in this encounter Care Teams Banking Services Officer Relationship Specialty Start Date End Date Isaac Nazario MD [address] [place] [address] PCP - ACO Reach 01/05/23 Isaac Nazario MD [address] [place] [address] PCP - General Family Medicine 02/08/23 11/02/23 Hannah Brian MD [address] [place] [address] PCP - General Family Medicine 11/03/23 documented as of this encounter
--- OUTSIDE RECORDS SUMMARY | 2025-02-07 13:39 | XMS_ITS ---
Author Organization [facility] Address [address] [place] [address] Care Team Providers Care Oil Dipper Name Role Phone Isaac Nazario MD Unavailable [phone] Hannah Brian MD Primary Care Provider [phone] Chronic Care Management (CCM) Status:Enrolled (Active) Start date:12/29/2022 Enrollment date:12/29/2022 Overview 10/12/23, 1:51 PM - Loida Nathan LPN- Patient gives verbal consent to be enrolled in CCM Program andunderstands there could be a bill for this service. Case Team Name Relationship Phone Loida Nathan LPN(Responsible Staff) Clinical Advoc ate [phone] Continued Care and Services Coordination
--- OUTSIDE RECORDS SUMMARY | 2025-02-07 13:39 | XMS_ITS | Encounter Summary ---
Author Organization [facility] Address [address] [place] [address] Care Team Providers Care Printed Circuit Boards Pinner Name Role Phone Isaac Nazario MD Unavailable [phone] Hannah Brian MD Primary Care Provider [phone] Encounter Details Date Type Department Care Team (Late st Contact Info) Description 11/13/2023 Clinisync Result Encounter [facility] External Department Unsolicited Hannah Brian MD [address] [place] [address] Social History Tobacco Use Types Packs/Day Years [...] Office Visit [facility] [address] [place] [address] Hannah Brian MD [address] [place] [address] documented as of this encounter Procedures Procedure [...] on filedocumented in this encounter Care Teams Printed Circuit Boards Pinner Relationship Specialty Start Date End Date Isaac Nazario MD [address] [place] [address] PCP - ACO Reach 01/05/23 Hannah Brian MD [address] [place] [address] PCP - General Family Medicine 11/03/23 documented as of this encounter
--- OUTSIDE RECORDS SUMMARY | 2025-02-07 13:39 | XMS_ITS ---
Author Organization [facility] Address [address] [place] [address] Care Team Providers Care Soaping Department Supervisor Name Role Phone Isaac Nazario MD Unavailable [phone] Hannah Brian MD Primary Care Provider [phone] Emergency Department Transitional Care Management (TCM) Status:Closed (Closed) Start date:01/30/2025 Enrollment date:02/03/2025 Enrollment reason:Identified using hospital discharge data End date:02/03/2025 Close reason:Actively enrolled in CCM Overview Discharged from [facility] ER on 01/30. Please contact within 2 days of discharge for ERTOC and schedule a follow-up appointment if needed. Continued Care and Services Coordination
--- OUTSIDE RECORDS SUMMARY | 2025-02-07 13:39 | XMS_ITS | Encounter Summary ---
Author Organization [facility] Address [address] [place] [address] Care Team Providers Care Heat Treater Name Role Phone Isaac Nazario MD Unavailable [phone] Hannah Brian MD Primary Care Provider [phone] Encounter Details Date Type Department Care Team (Late st Contact Info) Description 01/31/2025 Patient Outreach [facility] [address] [place] [address] Loida Nathan LPN [address] [place] [address] Social History Tobacco Use Types Packs/Day Years [...] Progress Notes * Loida Nathan LPN - 01/31/2025 11:41 AM EDT Pt to [facility] ER for R sided headache with R ear bleeding. Pt stated that she woke up with the blood coming out of her ear. Denies injury. EKG CXR, labs, CT head, CT unremarkable. Pt was treated with Cipro eardrop for possible otitis Externa. Call to pt, NA/no VM <January 31, 2025, 12:06 - Loida Nathan LPN> Call to pt and she states that she is doing fine. She is no longer having any issues with her ear. She is still using the drops. She denies any DICKINSON's at this time either. Appt declined for recheck ear. DEREK completed and medications reconciled with pt. Flowsheet Row Patient Outreach from 01/31/2025 in [facility] with Loida Nathan LPN Hospital Information ED, Hospital or Long Term Facility Discharge? ED Patient has been contacted within 2 days of being seen in the ED Yes Diagnosis Hemorrhagic otitis externa of right external auditory canal Discharge Date 01/30/25 Discharged To: Home Setting Discharge Hospital [facility] Engagement Admission Date 01/30/25 Medications Discharge medications reviewed and reconciled from hospital? Yes Is the patient having any side effects they believe may be caused by any medication additions or changes? No Does the patient have all medications ordered at discharge? Yes Nursing Interventions Nurse provided patient education Prescription Comments Cipro drops x 7 days prescribed Is the patient taking all medications as directed (includes completed medication regime)? Yes Nursing Interventions Nurse provided patient education Appointments Does the patient have a primary care provider? No Nursing Interventions Patient declined follow up appointment w/ PCP Self Management Does patient have home health? no Patient Teaching Does the patient have access to their discharge instructions? Yes Nursing Interventions Reviewed instructions with patient What is the patient's perception of their health status since discharge? Returned to baseline/stable Wrap Up Wrap Up Additional Comments EKG, CXR, labs, CT head, auditory canal.. documented in this encounter Plan of Treatment Upcoming Encounters Date Type Department Care Team (Late st Contact Info) Description 04/09/2025 3:20 PM EDT Office Visit [facility] [address] [place] [address] Hannah Brian MD [address] [place] [address] documented as of this encounter Visit Diagnoses Diagnosis Hemorrhagic otitis externa of right external auditory canal- Primary Atrial fibrillation with RVR (HCC) Anxiety Anxiety state, unspecified documented in this encounter Care Teams Heat Treater Relationship Specialty Start Date End Date Isaac Nazario MD [address] [place] [address] PCP - ACO Reach 01/05/23 Hannah Brian MD [address] [place] [address] PCP - General Family Medicine 11/03/23 documented as of this encounter
--- OUTSIDE RECORDS SUMMARY | 2025-02-07 13:39 | XMS_ITS | Encounter Summary ---
Author Organization [facility] Address [address] [place] [address] Care Team Providers Care Composite Mechanic Name Role Phone Isaac Nazario MD Primary Care Provider [phone] Irving Sorto MD Unavailable [phone] Johan Mireles MD Unavailable [phone] Isaac Nazario MD Primary Care Provider [phone] Dick Singh MD Unavailable Unavailable Dick Singh MD Unavailable Unavailable Source Comments In the event this information is protected by the Federal Confidentiality of Alcohol and Drug AbusePatient Records regulations: The Federal rules restrict any use of the information to criminally investigate or prosecute any alcohol or drug abuse patient.[facility] Encounter Details Date Type Department Care Team (Late st Contact Info) Description 02/23/2018 Letters (in) Colorectal Surgery [address] [place] [phone] Asa Macdonald MD [address] [place] [address] Social History Tobacco Use Types [...] AM EDT February 23, 2018 Asya Ruiz [address], [place] [address] NAME: ASYA ASENCIO I CLINIC NO.: [id number] DATE OF SERVICE: 02/23/2018 Dear Mrs. Asencio: This is a note regarding the colonoscopy done for you on the February 15, 2018. The indication was to screen your colon. The colon looked completely normal and I have recommended another check in 5 years. With kind regards. Yours sincerely, Asa Macdonald MD Department of Colorectal Surgery Date Dictated: 02/23/2018 Date Typed: [facility] 02/24/2018 JOB# [id number] documented in this encounter Plan of Treatment Not on file documented as of this encounter Visit Diagnoses Not on filedocumented in this encounter Care Teams Composite Mechanic Relationship Specialty Start Date End Date Isaac Nazario MD PCP - General 10/28/05 07/23/23 Isaac Nazario [place] [address] PCP - General Family Medicine 07/24/23 Irving Sorto MD [address] [place] [address] Surgeon Cardiac Surg 07/24/23 Johan Mireles MD [facility] [place] [address] Plant Physiologist Cardiology 07/24/23 Dick Singh MD [address] [place] [address] Cardiology 07/28/23 06/02/24 Dick Singh MD [address] [place] [address] Primary Staff Physician Cardiology 08/23/23 documented as of this encounter
--- OUTSIDE RECORDS SUMMARY | 2025-02-07 13:39 | XMS_ITS | Encounter Summary ---
Author Organization [facility] Address [address] [place] [address] Care Team Providers Care Tool Maker Name Role Phone Isaac Nazario MD Unavailable [phone] Hannah Brian MD Primary Care Provider [phone] Encounter Details Date Type Department Care Team (Late st Contact Info) Description 02/03/2025 Patient Outreach [facility] [address] [place] [address] Loida Nathan LPN [address] [place] [address] Social History Tobacco Use Types Packs/Day Years [...] Progress Notes * Loida Nathan LPN - 02/03/2025 10:46 AM EDT See DEREK OR for 3rd weekly monitor. <February 03, 2025, 10:46 - Loida Nathan LPN> documented in this encounter Plan of Treatment Upcoming Encounters Date Type Department Care Team (Late st Contact Info) Description 04/09/2025 3:20 PM EDT [facility] [address] [place] [address] Hannah Brian MD [address] [place] [address] documented as of this encounter Visit Diagnoses Diagnosis Atrial fibrillation with RVR (HCC)- Primary Anxiety Anxiety state, unspecified documented in this encounter Care Teams Tool Maker Relationship Specialty Start Date End Date Isaac Nazario MD [address] [place] [address] PCP - ACO Reach 01/05/23 Hannah Brian MD [address] [place] [address] PCP - General Family Medicine 11/03/23 documented as of this encounter
--- OUTSIDE RECORDS SUMMARY | 2025-02-07 13:39 | XMS_ITS | Encounter Summary ---
Author Organization [facility] Address [address] [facility] [place] [address] Care Team Providers Care Black Leather Trimmer Name Role Phone Peggy Whitley MD Unavailable [phone] Peggy Whitley MD Primary Care Provider [phone] Hannah Brian MD Primary Care Provider [phone] Encounter Details Date Type Department Care Team [...] Visit [facility] [address] [place] [address] Hannah Brian MD [address] [place] [address] documented as of this encounter Procedures Procedure Name Priority Date/Time Associated Diagnosis Comments CARD ECHO LIMITED STUDY 10/13/2023 12:39 PM EST documented in this encounter Results * CARD ECHO LIMITED STUDY (10/13/2023 12:39 PM EST) Anatomical Region Laterality Modality Radiographic Iwona ging 10/13/2023 12:3 9 PM EST Narrative 10/13/2023 12:40 PM EST [address] [address] Cardiology Report Signed Patient: ASYA ULLOA MR#: [id number] : 1950 Acct:[id number] Age/Sex: 73 / F ADM Date: 10/13/23 Loc: CARD Attending Dr: Non-Staff Physician MAntonio Ordering Physician: Conrado ZhaoStaff Pedro Date of Service: 10/13/23 Procedure(s): CA echo limited Accession Number(s): [id number] cc: PEGGY WHITLEY ; Physician,Non-Staff Pedro Patient Name: ASYA ULLOA MR#: [id number] : 1950 Exam Date: 10/13/2023 Ordering Doctor: [...] Signed By: 10/13/23 1240 DD/ 1239 TD/TT: Plant Science Professor: Procedure Note Radiology, Radiologist, - 10/13/2023 [place] [address] Cardiology Report Signed Patient: SIMRAN ULLOA#: [id number] : 1950cct:[id number] Age/Sex: 73 / FADM Date: 10/13/23 Loc: CARD Attending Dr: Non-Staff Physician Pedro Ordering Physician: PhysicianConradoStaff Pedro Date of Service: 10/13/23 Procedure(s): CA echo limited Accession Number(s): [id number] cc: PEGGY WHITLEY ; Physician,Jayde-Staff Pedro Patient Name: ASYA ULLOA MR#: [id number] : 1950 Exam Date: 10/13/2023 Ordering Doctor: [...] M.D. Signed By:10/13/23 1240 DD/ 1239 TD/TT: Plant Science Professor: us Generic External Data Provider IMG XR PROCEDURES Final Result documented in this encounter Visit Diagnoses Not on filedocumented in this encounter Care Teams Black Leather Trimmer Relationship Specialty Start Date End Date Peggy Whitley MD [address] [place] [address] PCP - ACO Reach 01/05/23 Peggy [place] MD [address] [place] [address] PCP - General Family Medicine 02/08/23 11/02/23 Hannah Brian MD [address] [place] [address] PCP - General Family Medicine 11/03/23 documented as of this encounter
--- NOTE | 2025-02-07 14:00 | CA_ITS ---
Patient Name: HARJIT ULLOA MR#: [id number] : 1950 Exam Date: 02/07/2025 Ordering Doctor: DR NEREYDA ROBINS M.D. ECHOCARDIOGRAM REPORT PROCEDURE: CA ECHO DOPPLER COMPLETE INDICATIONS: Status post transcatheter aortic valve replacement, ANA (transcatheter edge to edge repair), pacemaker COMPARISON: None. DESCRIPTION: COMPLETE ECHOCARDIOGRAM Real-time transthoracic echocardiography with 2D, M-mode, spectral and color flow Doppler performed. QUALITY: Technical quality was good. LEFT VENTRICLE: Normal chamber size. Normal left ventricular wall thickness. Systolic function is mildly reduced. Estimated left ventricular ejection fraction is 45-50 %. LV EF: Mildly reduced left ventricular ejection fraction, (45-50%). DIASTOLIC: ATRIAL SEPTUM: Visually appears intact. No evidence of flow across the atrial septum by Doppler. LEFT ATRIUM: Severe dilatation. RIGHT ATRIUM: Severe dilatation. RIGHT VENTRICLE: Normal chamber size. Normal systolic function. Pacer wire present. TRICUSPID VALVE: Normal mobility and thickness. No stenosis with moderate to severe regurgitation. Doppler studies reveal moderately (45-60) elevated right sided pressures. RVSP 49 mmHg MITRAL VALVE: Mild mitral regurgitation. ANA (transcatheter edge to edge repair) MitraClip device appears well seated. Mean diastolic gradient 2.6 mmHg at a heart rate of 70 bpm. AORTIC VALVE: Normal trileaflet appearance. No visible sclerosis. Normal leaflet mobility. No evidence of aortic valve stenosis. Mild aortic regurgitation. AORTIC ROOT: Normal diameter and appearance. PULMONIC VALVE: Normal thickness and mobility. No stenosis. Mild regurgitation. PERICARDIUM: No evidence of pericardial effusion. IVC: PLEURA: CONCLUSION: 1. Normal left ventricular size with mildly reduced systolic function. LVEF is estimated at 45 to 50%. 2. Normal right ventricular size and systolic function. 3. MitraClip device appears well-seated with mild regurgitation and a mean diastolic gradient of 2.6 mmHg at a heart rate of 70 bpm. 4. Moderate to severe tricuspid regurgitation. 5. Mild aortic and pulmonic regurgitation. 6. Moderately elevated right-sided pressures. RVSP is 49 mmHg. Adult Echocardiography Procedure Report Left Ventricle LVEDD (3.7 - 5.6 cm): 4.73 cm LVESD (2.2 - 4.0 cm): 4.50 cm LVIVS thickness (0.6 - 1.2 cm): 0.57 cm LVPW thickness (0.5 - 1.0 cm): 1.06 cm LVOT Max Gradient: 1.10 mm[Hg] LVOT Area (cm2): 0.52 m/s Peak Velocity (LVOT): 0.52 m/s Mean Velocity (LVOT): 0.32 m/s LVOT Diameter 2.20 cm Left Ventricular Ejection Fraction: 45-50 % Left Atrium LA Volume Index (2D A2C): 63.21 ml/m2 Left Atrium Systolic Dimension: 4.17 cm Mitral Valve MV E to A Ratio: 1.71 Mitral Valve A-Wave Peak Velocity: 0.62 m/s Mitral Valve E-Wave Peak Velocity: 1.06 m/s Right Ventricle Aorta AO Root Diam: 3.10 cm Aortic Valve AoV Area (Peak Tom): 1.94 cm2, 1.94 cm2 AoV Area (VTI): 1.96 cm2, 1.96 cm2 Peak Velocity(Antegrade Flow): 1.03 m/s Peak Gradient(Antegrade Flow): 4.22 mm[Hg] Mean Velocity(Antegrade Flow): 0.73 m/s Mean Gradient(Antegrade Flow): 2.32 mm[Hg] Velocity Time Integral: 20.16 cm Tricuspid Valve Peak Velocity (Regurgitant Flow): 3.07 m/s, 2.73 m/s, 3.19 m/s Pulmonic Valve Peak Gradient: 3.23 mm[Hg], 3.16 mm[Hg] Right Atrium Right Atrium Systolic Pressure: 101.08 ml, 101.08 ml Dictated by: Nereyda Robins M.D. on 02/07/2025 at 19:17 Approved by: Nereyda Robins M.D. on 02/07/2025 at 19:25
== END 2025-02-07 13:36 | disposition home or self-care (01) ==
LOC: CARD 13:35
PROVIDERS: PCP Student in an Organized Health Care Education/Training Program; Visit Provider Internal Medicine Interventional Cardiology
DX: Z95.2 Presence of prosthetic heart valve (principal)
CPT/HCPCS: 93306

== ENCOUNTER 2025-03-02 16:10 | Emergency (ER) | payer MEDICARE, BC, SELFPAY ==
--- OUTSIDE RECORDS SUMMARY | 2025-02-18 15:45 | XMS_ITS | Encounter Summary ---
Author Organization [facility] Address [address] [place] [address] Care Team Providers Care Music Arranger Name Role Phone Hannah Brian MD Primary Care Provider [phone] Encounter Details Date Type Department Care Team (Latest Contact Info) Description 02/18/2025 3:45 PM EDT Ancillary Procedure [facility] [address] [place] [address] Encounter for implantable defibrillator reprogramming or check Social History Tobacco Use Types Packs/Day Years Used Date Smoking Tobacco: Former Cigarettes Passive Smoke Exposure: Past Smokeless Tobacco: Never Passive Exposure Comments:so cia smoker stopped in 1989 Alcohol Use Standard Drinks/Week Comments Never 0 (1 standard drink = 0.6 oz pur e alcohol) [facility] Utilities Answer Date Recorded In the past 12 months has [employer], gas, oil, or water [employer] threatened to shut off services in your [...] any time in the past 12 m [facility], were you homeless or living in a retirement (including now)? No 01/14/2025 Hunger Vital Sign [...] Care Team (Late st Contact Info) Description 03/31/2025 2:15 PM EDT Office Visit [facility] [address] [place] [address] Rafael Robins MD [address] [facility] [address] [place] [id number] Pending Results Name Type Priority Associated Diagnoses Date /Time Cardiac device check - In Clinic Implantable Cardiac Device Routine Encounter for implantable defibrillator reprogramming or check 02/21/2025 5:00 PM EDT documented as of this encounter Visit Diagnoses Diagnosis Encounter for implantable defibrillator reprogramming or check Fitting and adjustment of automatic implantable cardiac defibrillator documented in this encounter Care Teams Music Arranger Relationship Specialty Start Date End Date Hannah Brian MD [address] [place] [address] PCP - General Family Medicine 3/22/24 documented as of this encounter
[2025-03-02 16:12] VITALS: BP 156/76; PULSE 67; TEMP 36.5; O2SAT 98; BMI 20.1
--- NOTE | 2025-03-02 16:31 | PC.NURSE ---
pt recently had a tooth pulled from left top and left bottom mouth. after swish and swash today pt saw the blood clot come out. this nurse observes slight bleeding , made pt rinse and spit and placed a damp cotton swab at areas and told pt to bite down to stop bleeding.
--- NOTE | 2025-03-02 16:33 | PC.NURSE ---
no redness or swelling to left eye, eye is not watering at this time. pt is unsure if she feels anything in eye
--- OUTSIDE RECORDS SUMMARY | 2025-03-02 16:34 | XMS_ITS | Encounter Summary ---
Author Organization [facility] Address [address] [place] [id number] Care Team Providers Care Rn Concurrent Review Name Role Phone Isaac Nazario MD Primary Care Provider [phone] Irving Sorto MD Unavailable [phone] Johan Mireles MD Unavailable [phone] Isaac Nazario MD Primary Care Provider [phone] Dick Singh MD Unavailable Unavailable Dick Singh MD Unavailable Unavailable Source Comments In the event this information is protected by the Federal Confidentiality of Alcohol and Drug AbusePatient Records regulations: The Federal rules restrict any use of the information to criminally investigate or prosecute any alcohol or drug abuse patient.[facility] Encounter Details Date Type Department Care Team (Late st Contact Info) Description 02/23/2018 Letters (in) Colorectal Surgery [address] [place] [id number] Asa Macdonald MD [address] [place] [address] Social History Tobacco Use Types [...] AM EDT February 23, 2018 Asya Ruiz [address], [place] [address] NAME: ASYA ASENCIO I CLINIC NO.: [id number] DATE OF SERVICE: 02/23/2018 Dear Mrs. Asencio: This is a note regarding the colonoscopy done for you on the February 15, 2018. The indication was to screen your colon. The colon looked completely normal and I have recommended another check in 5 years. With kind regards. Yours sincerely, Asa Macdonald MD Department of Colorectal Surgery Date Dictated: 02/23/2018 Date Typed: [facility] 02/24/2018 JOB# [id number] documented in this encounter Plan of Treatment Not on file documented as of this encounter Visit Diagnoses Not on filedocumented in this encounter Care Teams Rn Concurrent Review Relationship Specialty Start Date End Date Isaac Nazario MD PCP - General 10/28/05 07/23/23 Isaac Nazario MD [place] [address] PCP - General Family Medicine 07/24/23 Irving Sorto MD [address] [place] [address] Surgeon Cardiac Surg 07/24/23 Johan Mireles MD [facility] [address] [place] [address] Federal Judge Cardiology 07/24/23 Dick Singh MD [address] [place] [id number] Cardiology 07/28/23 06/02/24 Dick Singh MD [address] [place] [id number] Primary Staff Physician Cardiology 08/23/23 documented as of this encounter
--- OUTSIDE RECORDS SUMMARY | 2025-03-02 16:34 | XMS_ITS | Clinical Summary ---
Author Organization [facility] Address [address] [place] [address] Care Team Providers Care Material Mixer Name Role Phone Hannah Brian MD Primary Care Provider [phone] Allergies Active Allergy Reactions Criticality Noted Date [...] 180 tablet 3 5 12/27/19 26 Active amoxicillin (Amoxil) 500 mg tabletIndication s:S/P mitral valve clip implantation Take 4 tablets (2,000 mg) by mouth 1 (one) time if needed (30-60 minute prior to dental procedures) for up to 1 dose. 20 tablet 3 5 Active carvedilol (Coreg) 6.25 mg tabletIndication s:Primary hypertension Take 1 tablet (6.25 mg) by mouth with breakfast and with evening meal. 60 tablet 11 5 02/12/20 26 Active carvedilol (Coreg) 3.125 mg tabletIndication s:Primary hypertension Take 1 tablet (3.125 mg) by mouth with breakfast and with evening meal. 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 [address] [place] [address] Yadiel Haines MD 02/11/2025 Refill [facility] [address] [facility] [place] [address] Niecy Mazariegos CNP Primary hypertension 02/10/2025 1:45 PM EDT Follow-Up [facility] [address] [facility] [place] [address] Rafael Robins MD S/P mitral valve clip implantation (Primary Dx); Chronic systolic heart failure (CMS/HCC); Nonrheumatic tricuspid valve regurgitation; Presence of biventricular automatic cardioverter/defibrillat or (AICD); Longstanding persistent atrial fibrillation (CMS/HCC); Hx of atrioventricular node ablation 01/24/2025 Telephone [facility] [address] [facility] [place] [address] Allison Jefferson MA 01/23/2025 2:40 PM EDT Follow-Up [facility] [address] [place] [address] Niecy Mazariegos CNP Nonrheumatic mitral valve regurgitation (Primary Dx); Severe mitral regurgitation; S/P mitral valve repair; Primary hypertension; Chronic systolic heart failure (CMS/HCC); Nonrheumatic tricuspid valve regurgitation; Paroxysmal atrial fibrillation (CMS/HCC); Presence of biventricular automatic cardioverter/defibrillat or (AICD); Cardiac pacemaker in situ 01/15/2025 Telephone [facility] [address] [place] [address] Allison Jefferson MA 01/14/2025 8:31 AM EDT Anesthesia Event [facility] [address] [place] [address] Lobo Machado MD 01/14/2025 8:30 AM EDT - 01/14/2025 10:30 AM EDT Surgery [facility] [address] [place] [address] Rafael Robins MD Transcatheter mitral valve repair [[id number]] 01/14/2025 7:06 AM EDT - 01/15/2025 5:01 PM EDT Hospital Encounter [facility] [address] [place] [address] Rafael Robins MD Severe mitral regurgitation (Primary Dx); Nonrheumatic mitral valve regurgitation; Primary hypertension Discharge Disposition: Home or Self Care () 01/14/2025 Travel 01/13/2025 Orders Only [facility] Pre-Anesthesia Clinic [address] [place] [address] Niecy Benito RN 01/09/2025 Orders Only [facility] [address] [place] [address] Allison Jefferson MA Status post transcatheter aortic valve replacement 01/09/2025 Travel 01/08/2025 Orders Only [facility] Cardiology Clinic [address] [place] [address] Rafia Roger CNP Nonrheumatic mitral valve regurgitation (Primary Dx) 12/24/2024 Telephone [facility] [address] [place] [address] Allison Jefferson MA 12/23/2024 1:30 PM EDT Office Visit [facility] [address] [place] [address] Rafael Robins MD Nonrheumatic mitral valve regurgitation (Primary Dx); Chronic systolic heart failure (CMS/HCC); Nonrheumatic tricuspid valve regurgitation; Coronary artery disease involving [place] coronary artery of [place] heart without angina pectoris; Presence of biventricular automatic cardioverter/defibrillat or (AICD); Longstanding persistent atrial fibrillation (CMS/HCC) 12/04/2024 Orders Only [facility] [address] [place] [id number] Marco Peguero MD from Last 3 Months Immunizations Immunization Administration [...] drink = 0.6 oz pur e alcohol) [facility] Utilities Answer Date Recorded In the past 12 months has th e [employer], gas, oil, or water [employer] threatened to shut off services in your [...] any time in the past 12 m [facility], were you homeless or living in a usp (including now)? No 01/14/2025 Hunger Vital Sign [...] Sign Reading Time Taken Comments Blood Pressure 162/84 02/10/2025 1:41 PM EDT Pulse 71 02/10/2025 1:41 PM EDT Temperature 36.5 C (97.7 F) 01/15/2025 4:00 PM EDT Respiratory Rate 18 01/15/2025 3:30 PM EDT Oxygen Saturation 95% 02/10/2025 1:41 PM EDT Inhaled Oxygen Concentration - - Weight 61.7 kg (136 lb) 02/10/2025 1:41 PM EDT Height 165.1 cm (5' 5 ) 02/10/2025 1:41 PM EDT Body Mass Index 22.63 02/10/2025 1:41 PM EDT Plan of Treatment Upcoming Encounters Date Type Department Care Team (Late st Contact Info) Description 03/31/2025 2:15 PM EDT Office Visit [facility] [address] [place] [address] Rafael Robins MD [address] [facility] [place] [address] Health Maintenance Due Date Last Done Comments Medicare Annual Wellness (AWV) 1950 Depression Screening 1960 Pneumococcal Vaccine: 50+ Years (1 of 2 - PCV) 1967 Zoster Vaccines (1 of 2) 1998 COVID-19 Vaccine (2023-2 5 season) 2024 Influenza Vaccine (#1) 2025 Fall Risk Screening 01/15/2026 01/15/2025 Adult [...] Sigmoidoscopy Discontinued Medical Devices Implanted Type Area Recreational Director Device Identifier Shelf Expiration Date Model / Serial / Lot Visionist X4 Is-1/Is4 Implanted:Qty: 1 on 02/28/2024 by Marco Peguero MD at [facility] Device Nuve [id number] 01/25/2026 [id number] / [id number] / System,Mitracl ip,G4,Xtw - [id number] Implanted:Qty: 1 on 01/14/2025 by Rafael Robins MD at [facility] Device N/A: Heart Pink Rebel Shoes [id number] 03/26/2025 [id number] / / [id number] Ingevity+ Is-1 Bi Positive Fix Ra/Rv 52cm Implanted:Qty: 1 on 02/28/2024 by Marco Peguero MD at [facility] Lead Nuve [id number] 01/28/2026 [id number] / [id number] / Lead,Acuity X4,Straight - [id number] - [id number] Implanted:Qty: 1 on 02/28/2024 by Marco Peguero MD at [facility] Lead [employer] [id number] 01/17/2026 [id number] / [id number] / Procedures Procedure Name Priority Date/Time Associated [...] LINE PLACEMENT Routine 01/14/2025 9:04 AM EDT MI AN ELECTIVE ENDOTRACHEAL AIRWAY Routine 01/14/2025 8:52 AM EDT POCT GLUCOSE METER UNSOLICITED RESULTS Routine 01/14/2025 7:50 AM EDT PROTIME-INR STAT 01/14/2025 7:50 AM EDT CARDIAC DEVICE CHECK CHECK - REMOTE Routine 12/13/2024 11:53 AM EDT Adjustment and management of cardiac pacemaker CARDIAC DEVICE CHECK - REMOTE - PACEMAKER Routine 12/04/2024 12:00 AM EDT from Last 3 Months Results * ECG 12 lead (01/15/2025 10:54 AM EDT) Only the most recent of2 resultswithin the time period is included. Ventricular Rate 72 BPM GE MUSE Atrial Rate 55 BPM GE MUSE QRS DURATION 124 ms GE MUSE QT Interval 416 ms GE MUSE QTC CALCULATION(BAZE TT) 455 ms GE MUSE R-[place] 116 degrees GE MUSE T Wave [place] 14 degrees GE MUSE 01/15/2025 10:4 0 [...] Narrative 01/15/2025 12:08 PM EDT 1 1 [place] [facility] Heart Station [address] [place] [address] [phone] (fax) Echocardiogram-[facility] Name: ASYA ULLOA Study Date: 01/15/2025 09:13 AM B/P: 89 mmHg/71 mmHg HR: 70 bpm Date of : 1950 Location: [facility] Height: 65 in. Age: 74 year(s) Patient Room: [facility] Weight: 138 lb. Gender: Female [...] No pericardial effusion. Procedure Staff Reading Group: [facility] Manager: NETTIE Meeks, RDCS Ordering Physician: Rafael oRbins MD Wall Motion Scores -1 - hyperkinesia, 0 - not evaluated, 1 - normal, 2 - hypokinesia, 3 - akinesia, 4 - dyskinesia Procedure Note Shara Martinez MD - 01/15/2025 1 1 [facility] Heart Station [address] [place] [address] [phone] (fax) Echocardiogram-[facility] Name: ASYA ULLOA Study Date: 01/15/2025 09:13 AM B/P: 89 mmHg/71 mmHg HR: 70 bpm Date of : 1950 Location: [facility] Height: 65 in. Age: 74 year(s) Patient [...] No pericardial effusion. Procedure Staff Reading Group: [facility] Manager: NETTIE Meeks, RDCS Ordering Physician: Rafael Robins MD Wall Motion Scores -1 - hyperkinesia, 0 - not evaluated, 1 - normal, 2 - hypokinesia, 3 - akinesia, 4 - dyskinesia Rafael Robins MD CV ECHO PROCEDURES Final Res ult * (ABNORMAL) CBC (01/15/2025 5:23 AM EDT) Auto WBC 12.19(H) 4.00 - 10.60 10*3/uL 01/15/2025 6:[address] [facility] ([facility]) RBC 4.48 3.80 - 5.00 10*6/uL 01/15/2025 6:[address] [facility] ([facility]) Hemoglobin 13.6 12.0 - 15.0 g/dL 01/15/2025 6:[address] [facility] ([facility]) Hematocrit 45.2(H) 36.0 - 45.0 % 01/15/2025 6:[address] [facility] ([facility]) MCV 100.9(H) 82.0 - 98.0 fL 01/15/2025 6:[address] [facility] ([facility]) MCH 30.4 27.0 - 33.0 pg 01/15/2025 6:[address] [facility] ([facility]) MCHC 30.1(L) 32.0 - 35.0 g/dL 01/15/2025 6:[address] [facility] ([facility]) RDW 13.4 11.5 - 15.0 % 01/15/2025 6:[address] [facility] ([facility]) Platelets 176 150 - 400 10*3/uL 01/15/2025 6:[address] [facility] ([facility]) Blood Venous blood specimen / Unknown Venipuncture / Unknown 01/15/2025 5:23 AM EDT 01/15/2025 5:32 AM EDT Rafia Roger TEST RACK OPERATOR LAB BLOOD ORDERABLES Final Re sult [facility] ([facility]) [address] [place] [address] * (ABNORMAL) Basic metabolic panel (01/15/2025 5:23 AM EDT) Only the most recent of2 resultswithin the time period is included. Sodium 133(L) 136 - 145 mmol/L 01/15/2025 5:[address] [facility] ([facility]) Potassium 4.7 3.5 - 5.1 mmol/L 01/15/2025 5:[address] [facility] ([facility]) Chloride 106 98 - 107 mmol/L 01/15/2025 5:[address] [facility] ([facility]) CO2 19(L) 21 - 31 mmol/L 01/15/2025 5:[address] [facility] ([facility]) BUN 16 7 - 25 mg/dL 01/15/2025 5:[address] [facility] ([facility]) Creatinine 0.84 0.60 - 1.20 mg/dL 01/15/2025 5:[address] [facility] ([facility]) Glucose 123(H) 70 - 100 mg/dL 01/15/2025 5:[address] [facility] ([facility]) Calcium 8.3(L) 8.6 - 10.3 mg/dL 01/15/2025 5:[address] [facility] ([facility]) Anion Gap 13 7 - 20 mmol/L 01/15/2025 5:[address] [facility] ([facility]) eGFR 72.0 >60.0 mL/min/1. 73m*2 01/15/2025 5:[address] [facility] ([facility]) Comment:[facility] s estimated glomerular filtration rate [...] BUN/Creatinine Ratio 19.0 11/2024 5:[address] [facility] ([facility]) Blood Venous blood specimen / Unknown Venipuncture / Unknown 01/15/2025 5:23 AM EDT 01/15/2025 5:31 AM EDT us Rafia Roger [facility] LAB BLOOD ORDERABLES Final Re sult [facility] ([facility]) [address] [place] [address] * TRANSESOPHAGEAL ECHO (HAROON) W/ LIMITED DOPPLER AND COLOR FLOW (01/14/2025 11:39 AM EDT) Anatomical Region Laterality Modality Other 01/14/2025 7:49 AM EDT Narrative 01/14/2025 3:59 PM EDT 1 [facility] Heart Station [address] [place] [address] [phone] (fax) Transesophageal Echocardiogram-[facility] Name: ASYA ULLOA Study Date: 01/14/2025 07:49 AM B/P: 122 mmHg/67 mmHg HR: 71 bpm Date of : 1950 Location: [facility] Height: 65 in. Age: 74 year(s) Patient Room: 3186 Weight: 135 lb. Gender: Female Patient Status: InPt BSA: 1.67 m2 Indication: Mitral regurgitation, Mitral clip procedure Examination: HAROON/Limited Doppler/CFI Image Quality: Good Patient Consent: Informed, written consent was obtained for the procedure Exam Location: A HAROON was performed in the Surgical Nurse Practitioner without complications Anesthesia Performed under General Anesthesia [...] post transseptal puncture. Procedure Staff Reading Group: [facility] Manager: Kim Rodrigues BS, RDCS Ordering Physician: RAFIA ROGER Procedure Note Shara Martinez MD - 01/14/2025 1 [facility] Heart Station [address] [place] [address] [phone] (fax) Transesophageal Echocardiogram-[facility] Name: ASYA ULLOA Study Date: 01/14/2025 07:49 AM B/P: 122 mmHg/67 mmHg HR: 71 bpm Date of : 1950 Location: [facility] Height: 65 in. Age: 74 year(s) Patient Room: 3186 Weight: 135 lb. Gender: Female Patient Status: InPt BSA: 1.67 m2 Indication: Mitral regurgitation, Mitral clip procedure Examination: HAROON/Limited Doppler/CFI Image Quality: Good Patient Consent: Informed, written consent was obtained for the procedure Exam Location: A HAROON was performed in the Surgical Nurse Practitioner without complications Anesthesia Performed under General Anesthesia [...] post transseptal puncture. Procedure Staff Reading Group: [facility] Manager: NETTIE Meeks, RDCS Ordering Physician: RAFIA ROGER [...] - 01/15/2025 6:43 AM EDT Qc lot [id number]; peripheral edp equipment operator [id number] Rafael Robins MD POINT OF [...] today for that purpose. PROCEDURES: Successful transcatheter ngvd-la-ynhd repair (ANA) of the mitral valve using XTW MitraClip device. Transseptal puncture performed under fluoroscopic and transesophageal echocardiography guidance. Preclosure in the right common femoral vein using two 6-St Lucian ProGlide devices. Access into the right and left common femoral vein under ultrasound guidance. OPERATORS: Interventional Energy Crop Farmer: Rafael Robins MD. Dry Roaster Interventional Energy Crop Farmer: Chi Bejarano MD. Interventional Business Operations Specialist: Dr Hunter Mittal. METHODS: Procedure was explained to the patient with risks and benefits. she signed informed consent. she was brought to pathology lab technician in a fasting state. The procedure was performed in the cardiac pathology lab technician under general anesthesia administered by the anesthesiology [...] the left common femoral vein and a 4-St Lucian x 11 cm sheath was placed in order to gain central venous access for administration of medications and fluids. Micropuncture technique and ultrasound guidance were used for access in the right common femoral vein and a 6-St Lucian x 11 cm sheath was placed. A preclosure in the right common femoral vein was performed using two 6-St Lucian ProGlide devices. The access sheath was then [...] at the end of the procedure. The 4-St Lucian left femoral venous sheath was removed and [...] - 10.60 10*3/uL 01/14/2025 9:[address] [facility] ([facility]) RBC 3.80 3.80 - 5.00 10*6/uL 01/14/2025 9:[address] [facility] ([facility]) Hemoglobin 11.8(L) 12.0 - 15.0 g/dL 01/14/2025 9:[address] [facility] ([facility]) Hematocrit 35.8(L) 36.0 - 45.0 % 01/14/2025 9:[address] [facility] ([facility]) MCV 94.2 82.0 - 98.0 fL 01/14/2025 9:[address] [facility] ([facility]) MCH 31.1 27.0 - 33.0 pg 01/14/2025 9:[address] [facility] ([facility]) MCHC 33.0 32.0 - 35.0 g/dL 01/14/2025 9:[address] [facility] ([facility]) RDW 13.4 11.5 - 15.0 % 01/14/2025 9:[address] [facility] ([facility]) Neutrophils % 61.6 40.0 - 72.0 % 01/14/2025 9:[address] [facility] ([facility]) Lymphocytes % 27.7 20.0 - 45.0 % 01/14/2025 9:[address] [facility] ([facility]) Monocytes % 8.3 5.0 - 12.0 % 01/14/2025 9:[address] [facility] ([facility]) Eosinophils % 1.4 0.0 - 6.0 % 01/14/2025 9:[address] [facility] ([facility]) Basophils % 0.6 0.0 - 1.0 % 01/14/2025 9:[address] [facility] ([facility]) Neutrophils Absolute 2.98 1.60 - 7.60 10*3/uL 01/14/2025 9:[address] [facility] ([facility]) Lymphocytes Absolute 1.34 1.20 - 4.00 10*3/uL 01/14/2025 9:[address] [facility] ([facility]) Monocytes Absolute 0.40 0.10 - 1.00 10*3/uL 01/14/2025 9:[address] [facility] ([facility]) Eosinophils Absolute 0.07 0.00 - 0.50 10*3/uL 01/14/2025 9:[address] [facility] ([facility]) Basophils Absolute 0.03 0.00 - 0.20 10*3/uL 01/14/2025 9:[address] [facility] ([facility]) Platelets 178 150 - 400 10*3/uL 01/14/2025 9:[address] [facility] ([facility]) nRBC % 0.0 0 % 01/14/2025 9:[address] [facility] ([facility]) Immature Granulocytes % 0.4 0.0 - 1.0 % 01/14/2025 9:[address] [facility] ([facility]) Immature Granulocytes Absolute 0.02 0.00 - 0.20 10*3/uL 01/14/2025 9:[address] [facility] ([facility]) Blood Venous blood specimen / Unknown Venipuncture / Unknown 01/14/2025 9:35 AM EDT 01/14/2025 9:35 AM EDT Rafael Robins MD LAB BLOOD ORDERABLES Final R esult [facility] ([facility]) [address] [place] [address] * Type and screen (01/14/2025 9:35 AM EDT) ABO Grouping O 01/14/2025 10:24 AM EDT [facility] BLOOD BANK Rh Type POS 01/14/2025 10:24 AM EDT [facility] BLOOD BANK Ab Scrn NEG 01/14/2025 10:24 AM EDT [facility] BLOOD BANK Blood Venous blood specimen / Unknown Venipuncture / Unknown 01/14/2025 9:35 AM EDT 01/14/2025 9:35 AM EDT us Rafael Robins MD LAB BLOOD BANK TEST ORDERABL ES Final Result [facility] BLOOD BANK * (ABNORMAL) POC Hb02% (01/14/2025 9:32 AM EDT) [id number] 97.3(A) 90 - 95 % QC Pass/Fail Passed QC LOT # [id number] QC Expiration Date 73,126 SAMPLESITE nl Blood Venous blood specimen / Unknown 01/14/2025 9:32 AM EDT Narrative Jonas Blas MT - 01/15/2025 6:28 AM EDT Energy Crop Farmer [phone] us Rafael Robins MD POINT OF [...] no complications. Additional notes: [place] Staffing Performed: resident/[place]/CAA Anesthesiologist: Lobo Machado MD Resident/[place] [place]: Margaret Briceno MD Performed by: Irving Mendoza MD Authorized by: Lobo Machado MD Lobo Machado MD ANESTHESIA ORDERABLES Final Re sult * MI AN ELECTIVE ENDOTRACHEAL AIRWAY (01/14/2025 8:52 AM EDT) Lobo Hilliard MD - 01/14/2025 8:52 AM EDT Irving Mendoza MD 01/14/2025 10:17 AM Airway Date/Time: 01/14/2025 8:52 AM Urgency: elective Airway not difficult General Information and Staff Patient location during procedure: [place] Anesthesiologist: Lobo Machado MD Resident/[employer]/CAA: Margaret Briceno MD Performed: resident/[employer] [place]/CAA Indications and Patient Condition Indications for airway [...] - 105 mg/dL 01/14/2025 8:01 AM EDT [facility] ([facility]) Comment:[email or web address] Blood Capillary blood specimen / Unknown 01/14/2025 7:50 AM EDT 01/14/2025 8:01 AM EDT Narrative [facility] HECTOR) - 01/14/2025 8:01 AM EDT Waived Testing in the ED is performed under the ED CLIA certificate #[id number]. us Rafael Robins MD LAB BLOOD ORDERABLES Final R esult [facility] HECTOR) [address] [place] [address] * Protime-INR (01/14/2025 7:50 AM EDT) Protime 14.0 12.3 - 14.8 Seconds 01/14/2025 8:[address] [facility] ([facility]) INR 1.08 0.90 - 1.10 01/14/2025 8:[address] [facility] ([facility]) Comment: [facility] RECOMMENDED INR FOR WARFARIN THERAPY [...] 7:50 AM EDT 01/14/2025 8:13 AM EDT us Rafael Robins MD LAB BLOOD ORDERABLES Final R esult [facility] ([facility]) [address] [place] [address] * CARDIAC DEVICE CHECK - REMOTE - PACEMAKER (12/13/2024 11:53 AM EDT) BSA 1.68 m2 CPACS us Marco Peguero MD CV IMPLANTABLE CARDIAC DEVICE MI OCEDURES Final Result [facility] * Cardiac device check - Remote pacemaker (12/04/2024 12:00 AM EDT) Anatomical Region Laterality Modality Other 12/04/2024 Marco Peguero MD CV IMPLANTABLE CARDIAC DEVICE MI OCEDURES Final Result from Last 3 Months Insurance MEDICARE [facility] Advance Directives * Full Code (Latest Code Status on File) Date Activated Date Inactivated Comments 01/14/2025 2:43 PM 01/15/2025 7:02 PM * Full Code Date Activated Date Inactivated Comments 01/14/2025 2:43 PM 01/14/2025 2:43 PM Care Teams Material Mixer Relationship Specialty Start Date End Date Hannah Brian MD [address] [place] [address] PCP - General Family Medicine 11/03/23
--- OUTSIDE RECORDS SUMMARY | 2025-03-02 16:34 | XMS_ITS | Encounter Summary ---
Author Organization [facility] Address [address] [place] [address] Care Team Providers Care Tennis Centre Manager Name Role Phone Hannah Brian MD Primary Care Provider [phone] Encounter Details Date Type Department Care Team (Late st Contact Info) Description 12/04/2024 Orders Only [facility] [address] [place] [address] Marco Peguero MD [address] [place] [address] Social History Tobacco Use Types [...] Description 03/31/2025 2:15 PM EDT Office Visit [facility] [address] [facility] [place] [address] Rafael Robins MD [address] [facility] [address] [facility] [place] [address] documented as of this encounter Procedures Procedure Name Priority Date/Time Associated Diagnosis Comments CARDIAC DEVICE CHECK - REMOTE - PACEMAKER Routine 12/04/2024 12:00 AM EDT documented in this encounter Results * Cardiac device check - Remote pacemaker (12/04/2024 12:00 AM EDT) Anatomical Region Laterality Modality Other 12/04/2024 us Marco Peguero MD CV IMPLANTABLE CARDIAC DEVICE IA OCEDURES Final Result documented in this encounter Visit Diagnoses Not on filedocumented in this encounter Care Teams Tennis Centre Manager Relationship Specialty Start Date End Date Hnanah Brian MD [address] [place] [address] PCP - General Family Medicine 11/03/23 documented as of this encounter
--- NOTE | 2025-03-02 16:36 | PC.NURSE ---
no redness, swelling or bruising to site of complaint, skin intact
--- OUTSIDE RECORDS SUMMARY | 2025-03-02 16:36 | XMS_ITS | CCD ---
Author Organization [facility] Care Team Providers Care Metallurgical [employer] Teacher Name Role Phone Peggy Nazario Primary Care Physician Micheline Sorto MD Unavailable Johan Henriquez MD Unavailable Peggy Nazario Primary Care Provider Peggy Nazario MD Unavailable Peggy Nazario MD Primary Care Provider [phone] Alea Harley MD Unavailable Alea Harley MD Unavailable Hannah Brian Primary Care Physician Peggy Nazario Primary Care Provider [phone] Johan HENRIQUEZ Admitting Unavailable Johan HENRIQUEZ Consulting [...] Unava ilable Eb Goff Consulting Unavaila ble [facility] Cardio, XXXX Consulting Unavailable Koby Masterson Attending [...] Unavailable ALEA HARLEY F Referring Unavailable NAZARIO, [facility] Primary Care Unavailabl e VASAVADA, RAPHAEL P Referring Unavailable VASAVADA, RAPHAEL P Attending Unavailable NAZARIO, [facility] Primary Care Unavailabl e NAZARIO, [facility] Primary Care Unavailabl e HAMMER, ALEA F Referring Unavailable NAZARIO, [facility] Primary Care Unavailabl e NITHYA, MICHELINE Referring Unavailable NAZARIO, [facility] Primary Care Unavailabl e VASAVADA, RAPHAEL P Attending Unavailable SELF Referring Unavailable ALEA HARLEY F Referring Unavailable NAZARIO, [facility] Primary Care Unavailabl e ANA RIVAS Attending Unavailable NAZARIO, [facility] Primary Care Unavailabl e NAZARIO, [facility] Primary Care Unavailabl e NITHYA, MICHELINE Attending Unavailable NITHYA, MICHELINE Referring Unavailable YECENIA GLEZ S Admitting Unavailable NAZARIO, [facility] Primary Care Unavailabl e YECENIA GLEZ S Attending Unavailable NAZARIO, [facility] Primary Care Unavailabl e NITHYA, MICHELINE Referring Unavailable NITHYA, MICHELINE Referring Unavailable NAZARIO, [facility] Primary Care Unavailabl e NITHYA, MICHELINE Referring Unavailable GIANNI VILLALBA Attending Unavailable NAZARIO, [facility] Primary Care Unavailabl e NITHYA, MICHELINE Referring Unavailable NAZARIO, [facility] Primary Care Unavailabl e NAZARIO, [facility] Primary Care Unavailabl e VASAVADA, RAPHAEL P Referring Unavailable VASAVADA, RAPHAEL P Attending Unavailable INTHYA, MICHELINE Referring Unavailable ALEA HARLEY F Attending Unavailable NAZARIO, [facility] Primary Care Unavailabl e NAZARIO, [facility] Primary Care Unavailabl e VASAVADA, RAPHAEL P Attending Unavailable SELF Referring Unavailable Hannah Brian MD Primary Care Provider Peggy Nazario MD Primary Care Provider [phone] Hannah Brian MD Primary Care Provider SHERLYN SHINE Attending Unavailable HANNAH BRIAN Attending Unavailable SNEHAL, HANNAH De Leon Attending Unavailable SNEHAL, HANNAH De Leon Attending Unavailable SNEHAL, HANNAH De Leon Attending Unavailable SNEHAL, HANNAH De Leon Attending Unavailable FÁTIMA, SHERLYN Patino Attending Unavailable SNEHAL, HANNAH De Leon Attending Unavailable SNEHAL, HANNAH De Leon Attending Unavailable FÁTIMA, SHERLYN Patino Attending Unavailable DEBRODOLFO Attending Unavailable SHELLEY AVILES Attending Unavailab le MAXIMILIANMARCO Mason Admitting Unavailable MAXIMILIAN, MARCO Attending Unavailable MOUKARBEL, NEREYDA Attending Unavailable ROGER, RADHA Referring Unavailable ROGER, RADHA Referring Unavailable MAXIMILIAN, MARCO Referring Unavailable MAXIMILIAN, MARCO Referring Unavailable MOUKARBEL, NEREYDA Referring Unavailable MOUKARBEL, NEREYDA Referring Unavailable MAXIMILIAN, MARCO Attending Unavailable MAXIMILIAN, MARCO Referring Unavailable CARLOS ALBERTO, MARJ Attending Unavailable MOUKARBEL, NEREYDA Attending Unavailable MAXIMILIAN, MACRO Referring Unavailable MAXIMILIAN, MARCO Referring Unavailable MAXIMILIAN, MARCO Referring Unavailable DEISY, RADHA Attending Unavailable MAXIMILIAN, MARCO Referring Unavailable MAXIMILIAN, MARCO Referring Unavailable MAXIMILIAN, MARCO Referring Unavailable MAXIMILIAN, MARCO Referring Unavailable MOUKARBEL, NEREYDA Attending Unavailable CARLOS ALBERTO, MARJ Attending Unavailable MAXIMILIAN, MARCO Admitting Unavailable MAXIMILIAN, MARCO Attending Unavailable MOUKARBEL, NEREYDA Admitting Unavailable MOUKARBEL, NEREYDA Attending Unavailable Allergies Allergy Classification Reported Allergen(s) Allergy Type Date of Onset Reaction(s) Facility (20 sources) Cephalexin; Translations: [cephalexin] Drug Allergy 3 GI intolerance, Unknown [facility] (20 sources) Egg; Translations: [Eggs] Food allergy Unknown (qualifier value) [facility] (20 sources) Meperidine; Translations: [meperidine] Drug Allergy 0 Syncope (disorder), Other: See Comments [facility] (20 sources) Morphine; Translations: [morphine] Drug Allergy 3 Unknown [facility] (20 sources) Sulfonamides (Antibiotic); Translations: [sulfa drugs] Drug allergy Nausea [facility] (2 sources) Aspirin; Translations: [ASPIRIN] Drug Allergy 0 Other: See Comments [facility] (9 sources) Latex; Translations: [LATEX] Drug Intolerance 3 Rash, Hives [facility] (20 sources) Aluminum aspirin Drug Allergy 0 [facility] (20 sources) Amoxicillin; Translations: [AMOXICILLIN] Drug Allergy 3 Diarrhea [facility] (20 sources) Erythromycin; Translations: [ERYTHROMYCIN] Drug Allergy 3 Unknown [facility] (20 sources) Latex Propensity to adverse reactions 3 Hives, Rash [facility] (20 sources) Meperidine Drug Allergy 3 Unknown [facility] (20 sources) Sulfonamides (Antibiotic) Drug Allergy 3 GI intolerance, Intolerance [facility] (20 sources) WHEAT DEXTRIN; Translations: [WHEAT BRAN] Drug Allergy 3 [facility] (20 sources) WHEAT DEXTRIN Drug Allergy 3 [facility] (5 sources) Eggs Or Egg-Derived Products Drug Allergy 3 [facility] (15 sources) egg extract; Translations: [EGG] Drug Allergy 4 Intolerance, GI Upset [facility] (1 source) Meperidine; Translations: [Demerol HCl] Drug Allergy [facility] Repository (2 sources) Sulfonamides (Antibiotic); Translations: [SULFA (SULFONAMIDE ANTIBIOTICS)] Propensity to adverse reactions to drug (disorder) 3 [facility] Repository (20 sources) empagliflozin; Translations: [EMPAGLIFLOZIN] Drug Allergy 4 Angioedema [facility] Work Phone: (20 sources) Egg-Derived Products Drug Allergy 3 [facility] (20 sources) Amiodarone; Translations: [AMIODARONE] Drug Allergy 4 Nausea And Vomiting [facility] (20 sources) Valsartan; Translations: [VALSARTAN] Propensity to adverse reactions 4 [facility] (1 source) EGG DERIVED; Translations: [EGG DERIVED] Propensity to adverse reactions to drug (disorder) 3 [facility] Repository Medications Current Medications Medication Drug Class(es) Dates Sig (Normalized) Sig (Original) amoxicillin 500 mg / clavulanate 125 mg oral tablet (2 sources) Penicillin-class Antibacterial Start: 07-19-2023 End: 08-02-2023 Augmentin 500 mg-125 mg Tab 1 tab(s), Oral, q24hr for 14 day(s), 14 tab(s), Refill(s) 0, [facility] #[facility], 165, cm, 07/19/23 15:21:00 EST, [...] BID, # 60 tab(s), Refills(s) 0, Pharmacy: [facility] #[id number], 165, cm, 07/02/23 21:30:00 EST, Height/Length Dosing, 55.7, kg, 07/02/23 21:30:00 EST, Weight Dosing Start Date: 07/11/23 Status: Ordered Start: 07-11-2023 take 1 tablet by antonio twice daily Eliquis 5 mg oral tablet 5 mg = 1 tab(s), Oral, BID, # 60 tab(s), Refills(s) 0, Pharmacy: [facility] #[id number], 165, cm, 07/02/23 21:30:00 EST, Height/Length Dosing, 55.7, kg, 07/02/23 21:30:00 EST, Weight Dosing Start Date: 07/11/23 Status: Ordered Start: 07-11-2023 take 1 tablet by antonio twice daily Eliquis 5 mg oral tablet 5 mg = 1 tab(s), Oral, BID, # 60 tab(s), Refills(s) 0, Pharmacy: [facility] #[id number], 165, cm, 07/02/23 21:30:00 EST, Height/Length Dosing, [...] day(s), # 28 tab(s), Refills(s) 0, Pharmacy: [facility] #[facility], 165, cm, 10/05/23 18:07:00 EST, Height/Length [...] / neomycin 3.5 mg/ml / polymyxin b 30787 unt/ml ophthalmic suspension (17 sources) Aminoglycoside Antibacterial, Polymyxin-class Antibacterial, Corticosteroid Start: 10-30-2024 pbzvciru-bipitcavs-mc xAMETHasone (Maxitrol) 3.5-64642-8.1 ophthalmic suspension 10/30/2024 Active Start: 10-30-2024 take 1 drop(s) into the eye(s) four times daily ckefxpic-sjcyvzozc-bvtOMVDPkvljk (Maxitr ol) 3.5-62975-9.1 ophthalmic suspension INSTILL 1 DROP into affected eye FOUR TIMES DAILY FOR 14 DAYS 10/30/2024 Active dicyclomine hydrochloride 10 mg oral capsule (1 source) Anticholinergic Start: 07-01-2023 End: 07-08-2023 take 1 capsule by mouth four times daily Bentyl 10 mg Cap 10 mg = 1 cap(s), Oral, QID, X 7 day(s), # 14 cap(s), Refills(s) 0, Pharmacy: [facility] #[id number], 165, cm, 06/30/23 19:37:00 EST, Height/Length Dosing, [...] day (at bedtime), 42.5 gm, Refill(s) 6, [facility], 165.1, cm, 01/28/23 21:34:00 EDT, Height/Length Dosing, 54.5, kg, 01/28/23 21:34:00 EDT, Weight Dosing Start Date: 03/20/23 Status: Ordered Start: 03-03-2022 estradiol 0.1 mg/g vaginal cream 1 gm, Vaginal, MonFri, # 42.5 gm, Refills(s) 6, Pharmacy: [facility], 165, cm, 03/03/22 10:04:00 [...] MonFri, # 42.5 gm, Refills(s) 6, Pharmacy: [facility], 165, cm, 02/23/21 13:24:00 [...] MonFri, # 42.5 gm, Refills(s) 6, Pharmacy: [facility], 165, cm, 03/03/22 10:04:00 EDT, Height/Length Dosing, 54, kg, 03/03/22 10:04:00 EDT, Weight Dosing Start Date: 03/03/22 Status: Ordered Start: 02-26-2021 estradiol 0.1 mg/g vaginal cream 1 gm, Vaginal, MonFri, # 42.5 gm, Refills(s) 6, Pharmacy: [facility], 165, cm, 02/23/21 13:24:00 EDT, Height/Length Dosing, 54, kg, 02/23/21 13:24:00 EDT, Weight Dosing Start Date: 02/26/21 Status: Ordered famotidine 40 mg oral tablet (20 sources) Histamine-2 Receptor Antagonist Start: 07-03-2024 End: 07-03-2025 take 1 tablet by mouth at bedtime famotidine (Pepcid) 40 MG tablet Indications: Gastroesophageal reflux disease without esophagitis Take 1 tablet (40 mg) by mouth at bedtime 30 tablet 07/03/2024 07/03/2025 Active lactulose 667 mg/ml oral solution (1 source) Osmotic Laxative Start: 11-22-2023 End: 11-27-2023 take 13.333 g by mouth once daily lactulose 10 g/15 mL Oral Syrup 13.333 gm = 20 mL, Oral, Daily, X 5 day(s), # 100 mL, Refills(s) 0, Pharmacy: [facility] #37, 165, cm, 11/22/23 16:28:00 EDT, Height/Length [...] mg oral tablet (20 sources) Benzodiazepine Start: 01-16-2025 take 1 tablet by mouth every eight hours as needed for anxiety and anxiety and anxiety LORazepam (Ativan) 0.5 MG tablet Indications: Anxiety Take 1 tablet (0.5 mg) by mouth every 8 (eight) hours if needed for anxiety 90 tablet 01/16/2025 Active Start: 01-13-2025 take 1 tablet by antonio th every [...] antonio th once daily. polyethylene glycol 3350 70664 mg powder for oral solution (20 sources) [...] Daily, # 255 gm, Refills(s) 0, Pharmacy: [facility] #[id number], 165, cm, 07/02/23 21:30:00 EST, Height/Length Dosing, [...] for 7 day(s), 5 mL, Refill(s) 0, [facility] #[id number], 165, cm, 12/24/21 17:41:00 EDT, Height/Length Dosing, 54, kg, 12/24/21 17:41:00 EDT, Weight Dosing Start Date: 12/24/21 Stop Date: 12/31/21 Status: Ordered Zofran ODT 4 mg Tab-Dis (12 sources) Start: take 1 tablet by mouth every eight hours Zofran ODT 4 mg Tab-Dis 4 mg = 1 tab(s), Oral, q8hr, # 12 tab(s), Refills(s) 0, Pharmacy: [facility] #[id number], 165, cm, 06/30/23 19:37:00 EST, Height/Length Dosing, [...] completed, # 2 tab(s), Refills(s) 0, Pharmacy: [facility] #[id number], 165, cm, 04/26/23 15:23:00 EDT, Height/Length Dosing, 54.7, kg, 04/26/23 15:23:00 EDT, Weight Dosing Start Date: 04/26/23 Status: Ordered Start: 10-14-2022 take 1 tablet by antonio th once daily Cipro 500 mg Tab 500 mg = 1 tab(s), Oral, Daily, Take 1 tablet the day before the procedure and 1 tablet after the procedure, # 2 tab(s), Refills(s) 0, Pharmacy: [facility], 165, cm, 10/03/22 14:34:00 EST, Height/Length Dosing, 54.7, kg, 10/03/22 14:34:00 E... Start Date: 10/14/22 Status: Ordered Start: 03-03-2022 take 1 tablet by antonio th once daily Cipro 500 mg Tab 500 mg = 1 tab(s), Oral, As Directed, Take 1 tablet day before procedure, and then 1 tablet day of procedure after procedure, # 2 tab(s), Refills(s) 0, Pharmacy: [facility], 165, cm, 03/03/22 10:04:00 [...] Daily, # 60 tab(s), Refills(s) 0, Pharmacy: [facility] #[id number], 165, cm, 07/02/23 21:30:00 EST, Height/Length Dosing, [...] on above: Take 1 capsule by mo [facility] daily at bedtime. valsartan 80 [...] thrombophilia] 09-26-2023 Chronic Conduction disorders (8 sources) Encounter for adjustment and management of automatic implantable cardiac defibrillator; Translations: [Presence of automatic (implantable) cardiac defibrillator] Onset: 4 Chronic Congestive heart failure; nonhypertensive (10 sources) Acute systolic heart failure; Translations: [Acute systolic (congestive) heart failure] Onset: 3 Resolved: 4 Chronic Coronary atherosclerosis and other heart disease (3 sources) Coronary atherosclerosis; Translations: [Atherosclerotic heart disease of [place] coronary artery without angina pectoris] Onset: 3 [...] drug therapy] Onset: 3 Episodic Other aftercare (20 sources) Long-term 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; 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] Onset: 4 09-26-2023 Episodic Other aftercare (2 sources) Post-discharge follow-up; Translations: [Encounter for follow-up examination after completed treatment for conditions other than malignant neoplasm] 09-18-2023 Episodic Other circulatory disease (1 source) Disorder of arteries and arterioles, unspecified; Translations: [Disorder of artery or arteriole (HCC)] Onset: 4 Chronic Other circulatory disease (2 sources) Presence of other cardiac implants and grafts; Translations: [Presence of other cardiac implants and grafts] Onset: 5 Chronic Other diseases of kidney and ureters [...] medical treatment] 09-26-2023 Episodic Residual codes; unclassified (3 sources) Other specified postprocedural states; Translations: [H/O major abdominal surgery] Onset: 4 Episodic Residual codes; unclassified (2 sources) Body [...] Onset: 04-12-2023 Resolved: 11-09-2023 01-27-2018 Episodic Other circulatory disease (1 source) Other [...] encounter] Onset: 04-12-2023 Resolved: 11-09-2023 01-27-2018 Episodic Screening and history of mental health and substance abuse codes (20 sources) Ex-smoker; Translations: [Personal history of nicotine dependence] Onset: 04-12-2023 01-22-2020 Episodic Unclassified (1 source) Exposure to 2019 novel coronavirus; Translations: [Contact with and (suspected) exposure to COVID19] Results Test Name Value Interpretation Reference Range Facility 36on 02-12-2025 36 Increased to 6.25mg BID Normal [facility] 36on 02-11-2025 36 Patient called reported that she ran out of her carvedilol, discussed with patient to start on Coreg 6.25 mg bid, I also discussed this plan with her primary monorail hooker , patient will have to monitor her blood pressure at home. Yadiel Carmona MD PGY-5 telephone operator [facility] Telephoneon 02-11-2025 Telephone [phone] Asya Asencio I 1950 Provider Department Center 02/11/2025 1314-YADIEL CARMONA [facility] CARD HI HeartVAS Family History Problem Relation Age of Onset Coronary artery disease Mother Diabetes Mother Coronary artery disease Father Family Status - Relation Status Age at Mother Father Sister Brother Alive [facility] Follow-Upon 02-10-2025 Follow-Up [id number] ElifAsya Joseph 1950 Provider Department Center 02/10/2025 367NEREYDA PRINGLE CARD [facility] Family History Problem Relation Age of Onset Coronary artery disease Mother Diabetes Mother Coronary artery disease Father Family Status - Relation Status Age at Mother Father Sister Brother Alive Level of Service:17236 IN OFFICE/OUTPATIENT ESTABLISHED MOD MDM 30 MIN [facility] 36on 01-25-2025 36 Nereyda, would it be ok for her to hold Eliquis for a few days with her recent MitraClip or does she need to continue and maybe reduce the dose? -Maybe we move forward with Watchman for her after you see her on 02/10? [facility] 36 Nereyda, would it be ok for her to hold Eliquis for a few days with her recent MitraClip or does she need to continue and maybe reduce the dose? -Maybe we move forward with Watchman for her after you see her on 02/10? [facility] Follow-Upon 01-23-2025 Follow-Up [id number] ElifAsya Joseph 1950 Provider Department Center 01/23/2025 [facility] HOWELL CARD [facility] Family History Problem Relation Age of Onset Coronary artery disease Mother Diabetes Mother Coronary artery disease Father Family Status - Relation Status Age at Mother Father Sister Brother Alive Level of Service:69869 IN OFFICE/OUTPATIENT ESTABLISHED MOD MDM 30 MIN Reason for Visit and Comments: Valve Disorder [3372] Atrial Fibrillation [80] Normal [facility] 30on 01-15-2025 30 The patient is Moderately [...] and maintained or improved Outcome: Progressing Normal [facility] BASIC METABOLIC PANELon 06 Anion gap [Moles/Vol] 13 mmol/L Normal 7-20 [facility] Comment on above: Performed By: #### L [id number] #### [facility] ([facility]) [address] [place] [address] Calcium [Mass/Vol] 8.3 mg/dL Low 8.6-10.3 [facility] Comment on above: Performed By: #### L [id number] #### [facility] ([facility]) [address] [place] [address] Chloride [Moles/Vol] 106 mmol/L Normal 98-107 [facility] Comment on above: Performed By: #### L [id number] #### [facility] ([facility]) [address] [place] [address] CO2 [Moles/Vol] 19 mmol/L Low 21-31 [facility] Comment on above: Performed By: #### L [id number] #### [facility] ([facility]) [address] [place] [address] Creatinine [Mass/Vol] 0.84 mg/dL Normal 0.60-1.20 [facility] Comment on above: Performed By: #### L [id number] #### [facility] ([facility]) [address] [place] [address] GLOMERULAR FILTRATION RATE ML/MIN/1.73 SQ M.PREDICTED 72.0 mL/min/1.73m*2 Normal >60.0 [facility] Comment on above: Result Comment: [facility]???s estimated glomerular filtration rate (eGFR) will no [...] individuals. Performed By: #### L [id number] #### [facility] ([facility]) [address] [place] [address] Glucose [Mass/Vol] 123 mg/dL High 70-100 [facility] Comment on above: Performed By: #### L [id number] #### [facility] ([facility]) [address] [place] [address] Potassium [Moles/Vol] 4.7 mmol/L Normal 3.5-5.1 [facility] Comment on above: Performed By: #### L [id number] #### [facility] ([facility]) [address] [place] [address] Sodium [Moles/Vol] 133 mmol/L Low 136-145 [facility] Comment on above: Performed By: #### L [id number] #### [facility] ([facility]) [address] [place] [address] Urea nitrogen [Mass/Vol] 16 mg/dL Normal 7-25 [facility] Comment on above: Performed By: #### L [id number] #### [facility] ([facility]) [address] [place] [address] UREA NITROGEN/CREATININE (MASS RATIO) IN SER/PLAS 19.0 Normal [facility] Comment on above: Performed By: #### L [id number] #### [facility] ([facility]) [address] [place] [address] CBCon 01-15-2025 Erythrocyte distribution width (RBC) [Ratio] 13.4 % Normal 11.5-15.0 [facility] Comment on above: Performed By: #### L [id number] #### [facility] ([facility]) [address] [place] [address] ERYTHROCYTE MEAN CORPUSCULAR HEMOGLOBIN CONCENTRATION (G/DL) BY AUTOMATED 30.1 g/dL Low 32.0-35.0 [facility] Comment on above: Performed By: #### L [id number] #### [facility] ([facility]) [address] [place] [address] Hematocrit (Bld) [Volume fraction] 45.2 % High 36.0-45.0 [facility] Comment on above: Performed By: #### L [id number] #### [facility] ([facility]) [address] [place] [address] Hemoglobin (Bld) [Mass/Vol] 13.6 g/dL Normal 12.0-15.0 [facility] Comment on above: Performed By: #### L [id number] #### [facility] ([facility]) [address] [place] [address] MCH (RBC) [Entitic mass] 30.4 pg Normal 27.0-33.0 [facility] Comment on above: Performed By: #### L [id number] #### [facility] ([facility]) [address] [place] [address] MCV (RBC) [Entitic vol] 100.9 fL High 82.0-98.0 [facility] Comment on above: Performed By: #### L [id number] #### [facility] ([facility]) [address] [place] [address] PLATELETS (10*3/UL) IN BLOOD AUTOMATED COUNT 176 10*3/uL Normal 150-400 [facility] Comment on above: Performed By: #### L [id number] #### [facility] ([facility]) [address] [place] [address] RBC (Bld) [#/Vol] 4.48 10*6/uL Normal 3.80-5.00 [facility] Comment on above: Performed By: #### L [id number] #### [facility] ([facility] [address] [place] [address] WBC (Bld) [#/Vol] 12.19 10*3/uL High 4.00-10.60 [facility] Comment on above: Performed By: #### L [id number] #### [facility] ([facility]) [address] [place] [address] DSon 01-15-2025 DS Admission Admitted 01/14/2025 for Nonrheumatic mitral valve regurgit* Discharge Diagnosis Nonrheumatic mitral valve regurgitation Discharge Disposition Home or Self Care () Discharge Medications Your medication list CONTINUE taking [...] use. Cl (more content not included)... Normal [facility] 30on 01-14-2025 30 The patient is Moderately [...] and behaviors that affect risk of falls [place] fall precautions as indicated by assessment Educate [...] and prevent overall improvement and discharge Normal [facility] 30 The patient is Moderately Unstable - [...] and maintained or improved Outcome: Progressing Normal [facility] BASIC METABOLIC PANELon 06-0 Anion gap [Moles/Vol] 9 mmol/L Normal 7-20 [facility] Comment on above: Performed By: #### L [id number] #### [facility] ([facility]) [address] [place], [place] [address] Calcium [Mass/Vol] 8.5 mg/dL Low 8.6-10.3 [facility] Comment on above: Performed By: #### L [id number] #### [facility] ([facility] [address] [place] [address] Chloride [Moles/Vol] 107 mmol/L Normal 98-107 [facility] Comment on above: Performed By: #### L [id number] #### [facility] ([facility]) [address] [place] [address] CO2 [Moles/Vol] 26 mmol/L Normal 21-31 [facility] Comment on above: Performed By: #### L [id number] #### [facility] ([facility]) [address] [place] [address] Creatinine [Mass/Vol] 0.80 mg/dL Normal 0.60-1.20 [facility] Comment on above: Performed By: #### L [id number] #### [facility] ([facility]) [address] [place] [address] GLOMERULAR FILTRATION RATE ML/MIN/1.73 SQ M.PREDICTED 76.3 mL/min/1.73m*2 Normal >60.0 [facility] Comment on above: Result Comment: [facility]???s estimated glomerular filtration rate (eGFR) will no [...] individuals. Performed By: #### L [id number] #### [facility] ([facility]) [address] [place] [address] Glucose [Mass/Vol] 97 mg/dL Normal 70-100 [facility] Comment on above: Performed By: #### L [id number] #### [facility] ([facility]) [address] [place] [address] Potassium [Moles/Vol] 3.9 mmol/L Normal 3.5-5.1 [facility] Comment on above: Performed By: #### L [id number] #### [facility] ([facility]) [address] [place] [address] Sodium [Moles/Vol] 138 mmol/L Normal 136-145 [facility] Comment on above: Performed By: #### L [id number] #### [facility] ([facility]) [address] [place] [address] Urea nitrogen [Mass/Vol] 11 mg/dL Normal 7-25 [facility] Comment on above: Performed By: #### L [id number] #### [facility] ([facility]) [address] [place] [address] UREA NITROGEN/CREATININE (MASS RATIO) IN SER/PLAS 13.8 Normal [facility] Comment on above: Performed By: #### L [id number] #### [facility] ([facility]) [address] [place] [address] CBC WITH AUTO DIFFERENTIALon 01-14-2025 Basophils (Bld) [#/Vol] 0.03 10*3/uL Normal 0.00-0.20 [facility] Comment on above: Performed By: #### L [id number] #### [facility] ([facility]) [address] [place] [address] Basophils/100 WBC (Bld) 0.6 % Normal 0.0-1.0 [facility] Comment on above: Performed By: #### L [id number] #### [facility] ([facility]) [address] [place] [address] Eosinophils (Bld) [#/Vol] 0.07 10*3/uL Normal 0.00-0.50 [facility] Comment on above: Performed By: #### L [id number] #### [facility] ([facility] [address] [place] [address] Eosinophils/100 WBC (Bld) 1.4 % Normal 0.0-6.0 [facility] Comment on above: Performed By: #### L [id number] #### [facility] ([facility]) [address] [place] [address] Erythrocyte distribution width (RBC) [Ratio] 13.4 % Normal 11.5-15.0 [facility] Comment on above: Performed By: #### L [id number] #### [facility] ([facility]) [address] [place] [address] ERYTHROCYTE MEAN CORPUSCULAR HEMOGLOBIN CONCENTRATION (G/DL) BY AUTOMATED 33.0 g/dL Normal 32.0-35.0 [facility] Comment on above: Performed By: #### L [id number] #### [facility] ([facility]) [address] [place] [address] Hematocrit (Bld) [Volume fraction] 35.8 % Low 36.0-45.0 [facility] Comment on above: Performed By: #### L [id number] #### [facility] ([facility]) [address] [place] [address] Hemoglobin (Bld) [Mass/Vol] 11.8 g/dL Low 12.0-15.0 [facility] Comment on above: Performed By: #### L [id number] #### [facility] ([facility]) [address] [place] [address] Immature granulocytes (Bld) [#/Vol] 0.02 10*3/uL Normal 0.00-0.20 [facility] Comment on above: Performed By: #### L [id number] #### [facility] ([facility]) [address] [place] [address] Immature granulocytes/100 WBC (Bld) 0.4 % Normal 0.0-1.0 [facility] Comment on above: Performed By: #### L [id number] #### [facility] ([facility]) [address] [place] [address] Lymphocytes (Bld) [#/Vol] 1.34 10*3/uL Normal 1.20-4.00 [facility] Comment on above: Performed By: #### L [id number] #### [facility] ([facility]) [address] [place] [address] Lymphocytes/100 WBC (Bld) 27.7 % Normal 20.0-45.0 [facility] Comment on above: Performed By: #### L [id number] #### [facility] ([facility]) [address] [place] [address] MCH (RBC) [Entitic mass] 31.1 pg Normal 27.0-33.0 [facility] Comment on above: Performed By: #### L [id number] #### [facility] ([facility]) [address] [place] [address] MCV (RBC) [Entitic vol] 94.2 fL Normal 82.0-98.0 [facility] Comment on above: Performed By: #### L [id number] #### [facility] ([facility]) [address] [place] [address] Monocytes (Bld) [#/Vol] 0.40 10*3/uL Normal 0.10-1.00 [facility] Comment on above: Performed By: #### L [id number] #### [facility] ([facility]) [address] [place] [address] Monocytes/100 WBC (Bld) 8.3 % Normal 5.0-12.0 [facility] Comment on above: Performed By: #### L [id number] #### [facility] ([facility]) [address] [place] [address] Neutrophils (Bld) [#/Vol] 2.98 10*3/uL Normal 1.60-7.60 [facility] Comment on above: Performed By: #### L [id number] #### [facility] ([facility]) [address] [place] [address] Neutrophils/100 WBC (Bld) 61.6 % Normal 40.0-72.0 [facility] Comment on above: Performed By: #### L [id number] #### [facility] ([facility]) [address] [place] [address] NRBC (PER 100 WBCS) BY AUTOMATED COUNT 0.0 % Normal 0 [facility] Comment on above: Performed By: #### L [id number] #### [facility] ([facility]) [address] [place] [address] PLATELETS (10*3/UL) IN BLOOD AUTOMATED COUNT 178 10*3/uL Normal 150-400 [facility] Comment on above: Performed By: #### L [id number] #### [facility] ([facility]) [address] [facility] [place] [address] RBC (Bld) [#/Vol] 3.80 10*6/uL Normal 3.80-5.00 [facility] Comment on above: Performed By: #### L [id number] #### [facility] ([facility]) [address] [place] [address] WBC (Bld) [#/Vol] 4.84 10*3/uL Normal 4.00-10.60 [facility] Comment on above: Performed By: #### L [id number] #### [facility] ([facility]) [address] [facility] [place] [address] HPon 01-14-2025 HP H&P reviewed. The patient was examined and there are no changes to the H&P. Normal [facility] POCT GLUCOSE METER UNSOLICIT ED RESULTSon 01-14-2025 Glucose [Mass/Vol] 92 mg/dL Normal 70-105 [facility] Comment on above: Order Comment: Waive d Testing in the ED is performed under the ED CLIA certificate #[id number]. Result Comment: [email or web address] [email or web address] Performed By: #### L [id number] #### [facility] ([facility]) [address] [facility] [place] [address] PROTIME-INRon 01-14-2025 INR IN PPP BY COAGULATION ASSAY 1.08 Normal 0.90-1.10 [facility] Comment on above: Result Comment: ACCC P [...] RANGE. CHEST 1995;108:[id number]. Performed By: #### L [id number] #### [facility] ([facility]) [address] [place] [address] PROTHROMBIN TIME (PT) IN PPP BY COAGULATION ASSAY 14.0 Seconds Normal 12.3-14.8 [facility] Comment on above: Performed By: #### L [id number] #### [facility] ([facility]) [address] [place] [address] TYPE AND SCREENon 01-14-2025 AB SCREEN Negative Normal [facility] Comment on above: Performed By: #### L [id number] ####[facility], ABO group Nom (Bld) O Normal [facility] Comment on above: Performed By: #### L [id number] ####[facility], RH TYPE IN BLOOD Positive Normal [facility] Comment on above: Performed By: #### L [id number] ####[facility], Orders Onlyon 01-13-2025 Orders Only [id number] Asya Asencio I 1950 F Date Provider Department Center 01/13/2025 [id number] BOJORQUEZ [facility] C Family History Problem Relation Age of Onset Coronary artery disease Mother Diabetes Mother Coronary artery disease Father Family Status - Relation Status Age at Mother Father Sister Brother Alive [facility] Orders Onlyon 01-09-2025 Orders Only [id number] Asya Asencio I 1950 F Date Provider Department Center 01/09/2025 BIANCA MIGUEL [facility] Family History Problem Relation Age of Onset Coronary artery disease Mother Diabetes Mother Coronary artery disease Father Family Status - Relation Status Age at Mother Father Sister Brother Alive [facility] Orders Onlyon 01-08-2025 Orders Only [id number] Asya Asencio I 1950 F Date Provider Department Center 01/08/2025 RADHA CHAVEZ [facility] Family History Problem Relation Age of Onset Coronary artery disease Mother Diabetes Mother Coronary artery disease Father Family Status - Relation Status Age at Mother Father Sister Brother Alive [facility] Documentationon 12-25-2024 Documentation [id number] Aysa Asencio I 1950 F Date Provider Department Center 12/25/2024 Keesha-SHARA MARTINEZ HVC CARD [facility] Family History Problem Relation Age of Onset Coronary artery disease Mother Diabetes Mother Coronary artery disease Father Family Status - Relation Status Age at Mother Father Sister Brother Alive [facility] Telephoneon 12-24-2024 Telephone [id number] Asya Asencio I 1950 F Date Provider Department Center 12/24/2024 BIANCA MIGUEL [facility] Family History Problem Relation Age of Onset Coronary artery disease Mother Diabetes Mother Coronary artery disease Father Family Status - Relation Status Age at Mother Father Sister Brother Alive [facility] HPon 12-23-2024 [facility] Cardiology - 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 The plan was to add Jardiance. There is note of her to being evaluated by CT surgery Dr. Sorto regarding candidacy for cardiac surgery and she was deemed high risk. She was also evaluated at [facility] cardiothoracic surgery. Initial workup for her mitral [...] are negativ (more content not included)... Normal [facility] Office Visiton 12-23-2024 Follow-up visit [id number] Asya Asencio I 1950 F Date Provider Department Center 12/23/2024 Mulu-NEREYDA ROBINS CECILE Davies Family History Problem Relation Age of Onset Coronary artery disease Mother Diabetes Mother Coronary artery disease Father Family Status - Relation Status Age at Mother Father Sister Brother Alive Level of Service:63014 IN OFFICE/OUTPATIENT ESTABLISHED HIGH MDM 40 MIN Normal [facility] Urinalysis macro (dipstick) panel (U)on 12-17-2024 Bilirubin, UA Negative Negative - 4(70) +++ mg/dL [facility] Blood, UA Positive Negative - 50 Pedro/mcL [facility] Clarity, UA Clear [facility] Color, UA Yellow [facility] Glucose, UA Negative Negative - 1999(110) ++++ mg/dL [facility] Interpretation and review of laboratory results Abnormal [facility] Ketones, UA Negative Negative - 160(16) ++++ mg/dL [facility] Leukocytes, UA Negative Negative - 500+++ Ghislaine/mcL [facility] Nitrite, UA Negative Negative - Positive [facility] pH, UA 6 5 - 9 [facility] Protein, UA Negative Negative - 1999(20) ++++ mg/dL [facility] Spec Grav, UA 1.005 1 - 1.03 [facility] Urobilinogen, UA 0.2 0.2 - 12 mg/dL [facility] ANESon 11-29-2024 ANES - Attestation signed by [...] additional personal documentation from me. Patient: Asya Ruiz Elif Procedure Information Date/Time: 11/29/24 0900 Procedure: TRANSESOPHAGEAL ECHO (HAROON) Location: [facility] Vascular Lab Clinical information reviewed: Allergies Meds OB Status Physical Exam Airway Mallampati: III Cardiovascular Dental Pulmonary Abdominal Anesthesia Plan ASA 3 other (Conscious sedation) intravenous induction Anesthetic plan and risks discussed with patient. Use of blood products discussed with patient who consented to blood products. Plan discussed with attending and fellow. Additional Equipment Requests Normal [facility] BASIC METABOLIC PANELon 11-12 Anion gap [Moles/Vol] 9 mmol/L Normal 7-20 [facility] Comment on above: Performed By: #### L [id number] #### [facility] ([facility]) [address] [place] [address] Calcium [Mass/Vol] 9.1 mg/dL Normal 8.6-10.3 [facility] Comment on above: Performed By: #### L [id number] #### [facility] ([facility]) [address] [place] [address] Chloride [Moles/Vol] 102 mmol/L Normal 98-107 [facility] Comment on above: Performed By: #### L [id number] #### [facility] ([facility]) [address] [place] [address] CO2 [Moles/Vol] 32 mmol/L High 21-31 [facility] Comment on above: Performed By: #### L [id number] #### [facility] ([facility]) [address] [place] [address] Creatinine [Mass/Vol] 0.85 mg/dL Normal 0.60-1.20 [facility] Comment on above: Performed By: #### L [id number] #### [facility] ([facility]) [address] [place] [address] GLOMERULAR FILTRATION RATE ML/MIN/1.73 SQ M.PREDICTED 71.0 mL/min/1.73m*2 Normal >60.0 [facility] Comment on above: Result Comment: [facility]???s estimated glomerular filtration rate (eGFR) will no [...] individuals. Performed By: #### L [id number] #### [facility] ([facility]) [address] [place] [address] Glucose [Mass/Vol] 96 mg/dL Normal 70-100 [facility] Comment on above: Performed By: #### L [id number] #### [facility] ([facility]) [address] [place] [address] Potassium [Moles/Vol] 4.9 mmol/L Normal 3.5-5.1 [facility] Comment on above: Performed By: #### L [id number] #### [facility] ([facility]) [address] [place] [address] Sodium [Moles/Vol] 138 mmol/L Normal 136-145 [facility] Comment on above: Performed By: #### L [id number] #### [facility] ([facility]) [address] [place] [place] [address] Urea nitrogen [Mass/Vol] 14 mg/dL Normal 7-25 [facility] Comment on above: Performed By: #### L [id number] #### [facility] ([facility]) [address] [place] [place] [address] UREA NITROGEN/CREATININE (MASS RATIO) IN SER/PLAS 16.5 Normal [facility] Comment on above: Performed By: #### L [id number] #### [facility] ([facility]) [address] [facility] [place] [address] CBCon 11-29-2024 Erythrocyte distribution width (RBC) [Ratio] 13.3 % Normal 11.5-15.0 [facility] Comment on above: Performed By: #### L [id number] #### [facility] ([facility]) [address] [place] [address] ERYTHROCYTE MEAN CORPUSCULAR HEMOGLOBIN CONCENTRATION (G/DL) BY AUTOMATED 32.1 g/dL Normal 32.0-35.0 [facility] Comment on above: Performed By: #### L [id number] #### [facility] ([facility] [address] [place] [address] Hematocrit (Bld) [Volume fraction] 41.8 % Normal 36.0-45.0 [facility] Comment on above: Performed By: #### L [id number] #### [facility] ([facility] [address] [place] [address] Hemoglobin (Bld) [Mass/Vol] 13.4 g/dL Normal 12.0-15.0 [facility] Comment on above: Performed By: #### L [id number] #### [facility] ([facility] [address] [place] [address] MCH (RBC) [Entitic mass] 30.0 pg Normal 27.0-33.0 [facility] Comment on above: Performed By: #### L [id number] #### [facility] ([facility]) [address] [place] [address] MCV (RBC) [Entitic vol] 93.7 fL Normal 82.0-98.0 [facility] Comment on above: Performed By: #### L [id number] #### [facility] ([facility])) [address] [place] [address] PLATELETS (10*3/UL) IN BLOOD AUTOMATED COUNT 264 10*3/uL Normal 150-400 [facility] Comment on above: Performed By: #### L [id number] #### [facility] ([facility] [address] [place] [address] RBC (Bld) [#/Vol] 4.46 10*6/uL Normal 3.80-5.00 [facility] Comment on above: Performed By: #### L [id number] #### [facility] ([facility] [address] [place] [address] WBC (Bld) [#/Vol] 9.08 10*3/uL Normal 4.00-10.60 [facility] Comment on above: Performed By: #### L [id number] #### [facility] ([facility]) [address] [place] [address] HPon 11-29-2024 HP - Attestation signed by Shara Martinez MD [...] documentation from me. History Of Present Illness Aysa Asencio is a 74 y.o. female with [...] log. Intraprocedural f (more content not included)... [facility] NURSNOTEon 11-29-2024 NURSNOTE RN educated pt on d/ c [...] off of unit with all of belongings. Normal [facility] NURSNOTE Bedside swallow stud y completed and passed. [facility] Telephoneon 11-22-2024 Telephone [phone] Asya Asencio I 1950 F Date Provider Department Center 11/22/2024 [facility]ASC [facility] Family History Problem Relation Age of Onset Coronary artery disease Mother Diabetes Mother Coronary artery disease Father Family Status - Relation Status Age at Mother Father Normal [facility] Bacteria identified Cx Nom ( U)on 11-21-2024 Appearance (U) Adequate [facility] Internal identifier for Provider [id number] [facility] Specimen source Nom (Unsp spec) URINE, CLEAN CATCH [facility] Healthcare STATUS FINAL [facility] Performing Organization Information Site ID: QPT Name: [facility] Address: [address] [place] [address], [address] [place] [address] Director: Ab Vincent MD [facility] CULTURE, URINE, ROUTINEon CULTURE, URINE, ROUTINE SEE NOTE Normal [facility] Comment on above: Result Comment: CULTURE, URINE, ROUTINE Micro Number: [id number] Test Status: Final Specimen Source: Urine, clean catch Specimen Quality: Adequate Result: No Growth Performed By: #### 3 95 #### [facility] [address], [address] [place] [address] Pharmacy Consultant: Ab Vincent MD Urine cultureon 11-21-2024 Bacteria identified Cx Nom (U) SEE NOTE [facility] Comment on above: No Growth Urinalysis macro (dipstick) panel (U)on 11-18-2024 Bilirubin, UA Negative Negative - 4(70) +++ mg/dL [facility] Blood, UA Positive Negative - 50 Pedro/mcL [facility] Clarity, UA Clear [facility] Color, UA Yellow [facility] Glucose, UA Negative Negative - 1999(110) ++++ mg/dL [facility] Interpretation and review of laboratory results Abnormal [facility] Ketones, UA Negative Negative - 160(16) ++++ mg/dL [facility] Leukocytes, UA Trace Negative - 500+++ Ghislaine/mcL [facility] Nitrite, UA Negative Negative - Positive [facility] pH, UA 6.5 5 - 9 [facility] Protein, UA Negative Negative - 1999(20) ++++ mg/dL [facility] Spec Grav, UA 1.01 1 - 1.03 [facility] Urobilinogen, UA 0.2 0.2 - 12 mg/dL [facility] Healthcare Office Visiton 10-22-2024 Follow-up visit [id number] Asya Asencio I 1950 F Date Provider Department Center 10/22/2024 MARCO DIANE CARD St[facility] Family History Problem Relation Age of Onset Coronary artery disease Mother Diabetes Mother Coronary artery disease Father Family Status - Relation Status Age at Mother Father Level of Service:42029 IN OFFICE/OUTPATIENT ESTABLISHED LOW MDM 20 MIN Normal [facility] Urinalysis macro (dipstick) panel (U)on 08-12-2024 Bilirubin, UA Negative Negative - 4(70) +++ mg/dL [facility] Blood, UA Positive Negative - 50 Pedro/mcL [facility] Clarity, UA Clear [facility] Color, UA Yellow [facility] Glucose, UA Negative Negative - 1999(110) ++++ mg/dL [facility] Interpretation and review of laboratory results Abnormal [facility] Ketones, UA Negative Negative - 160(16) ++++ mg/dL [facility] Leukocytes, UA Negative Negative - 500+++ Ghislaine/mcL [facility] Nitrite, UA Negative Negative - Positive [facility] pH, UA 6 5 - 9 [facility] Protein, UA Negative Negative - 1999(20) ++++ mg/dL [facility] Spec Grav, UA 1.005 1 - 1.03 [facility] Urobilinogen, UA 0.2 0.2 - 12 mg/dL [facility] COMPREHENSIVE METABOLIC PANE [place] 07-04-2024 Albumin [Mass/Vol] 4.2 g/dL Normal 3.6-5.1 [facility] Comment on above: Order Comment: FASTI NG:NO FASTING: NO Performed By: #### 1 [id number] #### [facility] [address] [address] Pharmacy Consultant: Ab Vincent MD Albumin/Globulin [Mass ratio] 1.8 {ratio} Normal 1.0-2.5 [facility] Comment on above: Order Comment: FASTI NG:NO FASTING: NO Performed By: #### 1 0231 #### [facility] [address] [address] Pharmacy Consultant: Ab Vincent MD ALP [Catalytic activity/Vol] 75 U/L Normal 37-153 [facility] Comment on above: Order Comment: FASTI NG:NO FASTING: NO Performed By: #### 1 0231 #### [facility] [address], [address] [place] [address] Pharmacy Consultant: Ab Vincent MD ALT [Catalytic activity/Vol] 27 U/L Normal 6-29 [facility] Comment on above: Order Comment: FASTI NG:NO FASTING: NO Performed By: #### 1 0231 #### [facility] [address], [address] [place] [address] Pharmacy Consultant: Ab Vincent MD AST [Catalytic activity/Vol] 27 U/L Normal 10-35 [facility] Comment on above: Order Comment: FASTI NG:NO FASTING: NO Performed By: #### 1 0231 #### [facility] [address], [address] [place] [address] Pharmacy Consultant: Ab Vincent MD Bilirubin [Mass/Vol] 0.6 mg/dL Normal 0.2-1.2 [facility] Comment on above: Order Comment: FASTI NG:NO FASTING: NO Performed By: #### 1 0231 #### [facility] [address], [address] [place] [address] Pharmacy Consultant: Ab Vincent MD BUN/CREATININE RATIO SEE NOTE: Normal 6-22 [facility] Comment on above: Order Comment: FASTI NG:NO FASTING: NO Result Comment: Not Reported: BUN and Creatinine are within reference range. Performed By: #### 1 0231 #### [facility] [address], [address] [place] [address] Pharmacy Consultant: Ab Vincent MD Calcium [Mass/Vol] 9.2 mg/dL Normal 8.6-10.4 [facility] Comment on above: Order Comment: FASTI NG:NO FASTING: NO Performed By: #### 1 0231 #### [facility] [place] [address] Pharmacy Consultant: Ab Vincent MD Chloride [Moles/Vol] 104 mmol/L Normal 98-110 [facility] Comment on above: Order Comment: FASTI NG:NO FASTING: NO Performed By: #### 1 0231 #### [facility] [place] [address] Pharmacy Consultant: Ab Vincent MD CO2 [Moles/Vol] 27 mmol/L Normal 20-32 [facility] Comment on above: Order Comment: FASTI NG:NO FASTING: NO Performed By: #### 1 0231 #### [facility] [place] [address] Pharmacy Consultant: Ab Vincent MD Creatinine [Mass/Vol] 0.87 mg/dL Normal 0.60-1.00 [facility] Comment on above: Order Comment: FASTI NG:NO FASTING: NO Performed By: #### 1 0231 #### [facility] [place] [address] Pharmacy Consultant: Ab Vincent MD GFR/1.73 sq M.predicted among non-blacks MDRD (S/P/Bld) [Vol rate/Area] 69 mL/min/{1.73_m2} Normal > OR = 60 [facility] Comment on above: Order Comment: FASTI NG:NO FASTING: NO Performed By: #### 1 0231 #### [facility] [place] [address] Pharmacy Consultant: Ab Vincent MD Globulin (S) [Mass/Vol] 2.3 g/dL Normal 1.9-3.7 [facility] Comment on above: Order Comment: FASTI NG:NO FASTING: NO Performed By: #### 1 0231 #### [facility] [place] [address] Pharmacy Consultant: Ab Vincent MD Glucose [Mass/Vol] 94 mg/dL Normal 65-139 [facility] Comment on above: Order Comment: FASTI NG:NO FASTING: NO Result Comment: Non-fasting reference interval Performed By: #### 1 0231 #### [facility] [place] [address] Pharmacy Consultant: Ab Vincent MD Potassium [Moles/Vol] 4.6 mmol/L Normal 3.5-5.3 [employer] Comment on above: Order Comment: FASTI NG:NO FASTING: NO Performed By: #### 1 0231 #### [facility] [address], [address] [place] [address] Pharmacy Consultant: Ab Vincent MD Protein [Mass/Vol] 6.5 g/dL Normal 6.1-8.1 [facility] Comment on above: Order Comment: FASTI NG:NO FASTING: NO Performed By: #### 1 0231 #### [facility] [address], [address] [place] [address] Pharmacy Consultant: Ab Vincent MD Sodium [Moles/Vol] 139 mmol/L Normal 135-146 [facility] Comment on above: Order Comment: FASTI NG:NO FASTING: NO Performed By: #### 1 0231 #### [facility] [address], [address] [place] [address] Pharmacy Consultant: Ab Vincent MD Urea nitrogen [Mass/Vol] 12 mg/dL Normal 7-25 [facility] Comment on above: Order Comment: FASTI NG:NO FASTING: NO Performed By: #### 1 0231 #### [facility] [address], [address] [place] [address] Pharmacy Consultant: Ab Vincent MD CULTURE, URINE, ROUTINEon CULTURE, URINE, ROUTINE SEE NOTE Normal [facility] Comment on above: Order Comment: FASTI NG:UNKNOWN FASTING: UNKNOWN Result Comment: CULTURE, URINE, ROUTINE Micro Number: [id number] Test Status: Final Specimen Source: Urine Specimen Quality: Adequate Result: No Growth Performed By: #### 3 95 #### [facility] [address], [address] [place] [address] Pharmacy Consultant: Ab Vincent MD 37on 07-02-2024 37 *You can take famotidine (Pepcid) 10mg daily as needed for heartburn/acid reflux. If you are still having symptoms, you can take tums or rolaids as needed. -Let cardiology know if chest pain persists Normal [facility] Office Visiton 07-02-2024 Follow-up visit [id number] Asya Asencio I 1950 F Date Provider Department Center 07/02/2024 MARJ HOWELL Stacie [facility] Family History Problem Relation Age of Onset Coronary artery disease Mother Diabetes Mother Coronary artery disease Father Family Status - Relation Status Age at Mother Father Level of Service:66619 IN OFFICE/OUTPATIENT ESTABLISHED MOD MDM 30 MIN Reason for Visit and Comments: Atrial Fibrillation [80] Palpitations [404494] Congestive Heart Failure [127] Valve Disorder [3372] Normal [facility] Urinalysis macro (dipstick) panel (U)on 07-01-2024 Bilirubin, UA Negative Negative - 4(70) +++ mg/dL [facility] Blood, UA Negative Negative - 50 Pedro/mcL [facility] Clarity, UA Clear [facility] Color, UA Light Yellow [facility] Glucose, UA Negative Negative - 2000(110) ++++ mg/dL [facility] Interpretation and review of laboratory results Normal [facility] Ketones, UA Negative Negative - 160(16) ++++ mg/dL [facility] Leukocytes, UA Negative Negative - 500+++ Ghislaine/mcL [facility] Nitrite, UA Negative Negative - Positive [facility] pH, UA 6 5 - 9 [facility] Protein, UA Negative Negative - 2000(20) ++++ mg/dL [facility] Spec Grav, UA 1.01 1 - 1.03 [facility] Urobilinogen, UA 0.2 0.2 - 12 mg/dL [facility] CNOVon 06-27-2024 CNOV Normal [facility] HPon 06-10-2024 [facility] Electrophysiology Consult Note [place] Card[facility] - [facility] Reason for visit: Afib+ CMP 06/10/24 Pt [...] MR and subsequently had a visit with [facility] where evaluation was being done for surgical [...] clear, no (more content not included)... Normal [facility] Orders Onlyon 06-05-2024 Orders Only [id number] Asya Asencio I 1950 F Date Provider Department Center 06/05/2024 MARCO DIANE [facility] CARD [facility] Family History Problem Relation Age of Onset Coronary artery disease Mother Diabetes Mother Coronary artery disease Father Family Status - Relation Status Age at Mother Father Normal [facility] BMPon 06-03-2024 Anion gap [Moles/Vol] 9 mmol/L Normal 6-16 [facility] Comment on above: Performed By: #### 2 [id number] #### [facility] [address] [place] [address] Calcium [Mass/Vol] 9.1 mg/dL Normal 8.9-11.1 [facility] Comment on above: Performed By: #### 2 [id number] #### [facility] [address] [place] [address] Chloride [Moles/Vol] 103 mmol/L Normal 101-111 [facility] Comment on above: Performed By: #### 2 [id number] #### [facility] [address] [place] [address] CO2 [Moles/Vol] 29 mmol/L Normal 21-31 [facility] Comment on above: Performed By: #### 2 116134 #### [facility] [address] [place] [address] Creatinine [Mass/Vol] 0.8 mg/dL Normal 0.5-1.3 [facility] Comment on above: Performed By: #### 2 837170 #### [facility] [address] [place] [address] Glucose [Mass/Vol] 89 mg/dL Normal 55-199 [facility] Comment on above: Performed By: #### 2 364273 #### [facility] [address] [place] [address] Potassium [Moles/Vol] 4.3 mmol/L Normal 3.5-5.3 [facility] Comment on above: Performed By: #### 2 916679 #### [facility] [address] [place] [address] Sodium [Moles/Vol] 137 mmol/L Normal 135-145 [facility] Comment on above: Performed By: #### 2 244970 #### [facility] [address] [place] [address] Urea nitrogen [Mass/Vol] 12 mg/dL Normal 5-21 [facility] Comment on above: Performed By: #### 2 767921 #### [facility] [address] [place] [address] Urea nitrogen/Creatinine [Mass ratio] 15 No Units Normal 10-20 [facility] Comment on above: Performed By: #### 2 [id number] #### [facility] [address] [place] [address] CBC w/Indiceson 06-03-2024 Erythrocyte distribution width (RBC) [Ratio] 14.0 % Normal 10.9-14.2 [facility] Comment on above: Performed By: #### 2 804219 #### [facility] [address] [place] [address] Hematocrit (Bld) [Volume fraction] 40.6 % Normal 34.0-46.0 [facility] Comment on above: Performed By: #### 2 196349 #### [facility] [address] [place] [address] Hemoglobin (Bld) [Mass/Vol] 13.7 g/dL Normal 12.0-16.0 [facility] Comment on above: Performed By: #### 2 647314 #### [facility] [address] [place] [address] MCH (RBC) [Entitic mass] 31.0 pg Normal 27.0-34.0 [facility] Comment on above: Performed By: #### 2 [id number] #### [facility] [address] [place] [address] MCHC (RBC) [Mass/Vol] 33.6 g/dL Normal 31.4-36.0 [facility] Comment on above: Performed By: #### 2 992430 #### [facility] [address] [place] [address] MCV (RBC) [Entitic vol] 92.2 fL Normal 80.0-100.0 [facility] Comment on above: Performed By: #### 2 [id number] #### [facility] [address] [place] [address] Platelet mean volume (Bld) [Entitic vol] 8.3 fL Normal 6.4-10.8 [facility] Comment on above: Performed By: #### 2 161209 #### [facility] [address] [place] [address] Platelets (Bld) [#/Vol] 198.0 E9/L Normal 150.0-500.0 [facility] Comment on above: Performed By: #### 2 905934 #### [facility] [address] [place] [address] RBC (Bld) [#/Vol] 4.4 E12/L Normal 4.3-5.9 [facility] Comment on above: Performed By: #### 2 481412 #### [facility] [address] [place] [address] RBC size Nom (Bld) NORMAL Invalid Interpretation Code [facility] Comment on above: Performed By: #### 2 174164 #### [facility] [address] [place] [address] WBC corrected for nucl RBC Auto (Bld) [#/Vol] 7.0 E9/L Normal 4.0-11.0 [facility] Comment on above: Performed By: #### 2 197939 #### [facility] [address] [place] [address] CHEMISTRYOrdered By: SYSTEM SYSTEM on 06-03-2024 Anion [...] Remisol Heme Orders Onlyon 06-03-2024 Orders Only [id number] Asya Asencio I 1950 F Date Provider Department Center 06/03/2024 YAEL BRADFORD [facility] VASC LAB [facility] Family History Problem Relation Age of Onset Coronary artery disease Mother Diabetes Mother Coronary artery disease Father Family Status - Relation Status Age at Mother Father Normal [facility] eGFRon 06-03-2024 eGFR 76 mL/min/1.73 m2 Normal >=59 [facility] Comment on above: Performed By: #### 1 [id number] #### [facility] [address] [place] [address] Office Visiton 05-27-2024 Follow-up visit [id number] Asya Asencio I 1950 F Date Provider Department Center 05/27/2024 NEREYDA PEDERSEN CECILE Davies Family History Problem Relation Age of Onset Coronary artery disease Mother Diabetes Mother Coronary artery disease Father Family Status - Relation Status Age at Mother Father Level of Service:87835 IN OFFICE/OUTPATIENT ESTABLISHED MOD MDM 30 MIN Normal [facility] CNOVon 05-07-2024 CNOV Normal [facility] CNPTOUTREACHon 05-07-2024 CNPTOUTREACH Normal [facility] URINALYSIS, REFLEX MICROSCOP ICon 05-07-2024 Bilirubin Ql (U) Negative Negative [facility] Clarity (Unsp spec) Clear Clear [facility] Color (U) Yellow Yellow [facility] Glucose Test strip (U) [Mass/Vol] Negative Negative [facility] Hemoglobin Ql (U) Negative Negative [facility] Interpretation and review of laboratory results Normal [facility] Ketones Ql (U) Negative Negative [facility] Leukocyte esterase Test strip Ql (U) Negative Negative [facility] Nitrite Ql (U) Negative Negative [facility] pH (U) 6.0 [pH] NINF - 8.5 [facility] Protein (U) [Mass/Vol] Negative Negative [facility] Specific gravity (U) [Rel density] 1.007 1.005 - 1.030 [facility] Urobilinogen Ql (U) 0.2 EU/dL 0.2-1.0 EU/dL [facility] Bilirubin Ql (U) Negative Normal Negative [facility] Comment on above: Order Comment: Speci men Type: URINE SPECIMENOrdering Facility: [facility] Address: [address] [place] [address] Performed By: #### L [id number] ####[facility] [id number] [place] [address] [place] Clarity (Unsp spec) Clear Normal Clear [facility] Comment on above: Order Comment: Speci men Type: URINE SPECIMENOrdering Facility: [facility] Address: [address] [place] [address] Performed By: #### L [id number] ####[facility] LABCL[facility] [id number] [place] [address] [place] Color (U) Yellow Normal Yellow [facility] Comment on above: Order Comment: Speci men Type: URINE SPECIMENOrdering Facility: [facility] Address: [address] [place] [address] Performed By: #### L [id number] ####[facility] LABCLIA [id number] [place] [address] [place] Glucose Test strip (U) [Mass/Vol] Negative Normal Negative [facility] Comment on above: Order Comment: Speci men Type: URINE SPECIMENOrdering Facility: [facility] Address: [address] [place] [address] Performed By: #### L [id number] ####[facility] [id number] [place] [address] [place] Hemoglobin Ql (U) Negative Normal Negative [facility] Comment on above: Order Comment: Speci men Type: URINE SPECIMENOrdering Facility: [facility] Address: [address] [place] [address] Performed By: #### L [id number] ####[facility] LABCL[facility] [id number] [place] [address] [place] Ketones Ql (U) Negative Normal Negative [facility] Comment on above: Order Comment: Speci men Type: URINE SPECIMENOrdering Facility: [facility] Address: [address] [place] [address] Performed By: #### L [id number] ####[facility]CLIA [id number] [place] [address] [place] Leukocyte esterase Test strip Ql (U) Negative Normal Negative [facility] Comment on above: Order Comment: Speci men Type: URINE SPECIMENOrdering Facility: [facility] Address: [address] [place] [address] Performed By: #### L [id number] ####[facility]CL[facility] [id number] [place] [address] [place] Nitrite Ql (U) Negative Normal Negative [facility] Comment on above: Order Comment: Speci men Type: URINE SPECIMENOrdering Facility: [facility] Address: [address] [place] [address] Performed By: #### L [id number] ####[facility] LABCLIA [id number] [place] [address] [place] pH (U) 6.0 [pH] Normal <8.5 [facility] Comment on above: Order Comment: Speci men Type: URINE SPECIMENOrdering Facility: [facility] Address: [address] [place] [address] Performed By: #### L [id number] ####[facility]CLIA [id number] [place] [address] [place] Protein (U) [Mass/Vol] Negative Normal Negative [facility] Comment on above: Order Comment: Speci men Type: URINE SPECIMENOrdering Facility: [facility] Address: [address] [place] [address] Performed By: #### L [id number] ####[facility] LABCLIA [id number] [place] [address] [place] Specific gravity (U) [Rel density] 1.007 Normal 1.005-1.030 [facility] Comment on above: Order Comment: Speci men Type: URINE SPECIMENOrdering Facility: [facility] Address: [address] [place] [address] Performed By: #### L [id number] ####[facility] LABIA [id number] [place] [id number] [place] Urobilinogen Ql (U) 0.2 EU/dL Normal 0.2-1.0 EU/dL [facility] Comment on above: Order Comment: Speci men Type: URINE SPECIMENOrdering Facility: [facility] Address: [address] [place] [address] Performed By: #### L [id number] ####[facility] LABIA [id number] [place] [id number] [place] 36on 05-06-2024 36 Pt informed and she will restart eliquis day after injections [facility] 36on 04-02-2024 36 Patient informed. [facility] 36on 03-26-2024 36 Patient wants to kno w if she needs an antibiotic prior to tooth extraction. She's pretty persistent that she needs one. She says a lot of dentists won't touch me without it . Please advise. Thanks. [facility] Office Visiton 03-06-2024 Follow-up visit [id number] Asya Asencio I 1950 F Date Provider Department Center 03/06/2024 RADHA ZAMBRANO [facility] Family History Problem Relation Age of Onset Coronary artery disease Mother Diabetes Mother Coronary artery disease Father Family Status - Relation Status Age at Mother Father Level of Service:55637 IN POSTOP FOLLOW UP VISIT RELATED TO ORIGINAL PX [facility] HPon 02-28-2024 [facility] Electrophysiology Consult Note [place] Cardiology - 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 Normal [facility] NURSNOTEon 02-28-2024 NURSNOTE RN educated pt on d/ c instructions. RN encouraged pt to voice any questions or concerns. Pt verbalizes no questions or concerns at this time. [facility] C Urineon 11-24-2023 Bacteria identified Cx Nom (U) Microbiology PROCEDURE: Urine Culture [R1] SOURCE: U CleanCatch BODY SITE: COLLECTED DATE/TIME: 11/22/2023 16:36 EDT RECEIVED DATE/TIME: 11/22/2023 17:31 EDT START DATE/TIME: 11/22/2023 17:31 EDT FREE TEXT SOURCE: Winnie PALMA, Edel Mcclelland. Winnie PALMA, Edel Mcclelland. FINAL REPORTS Final Report [] Verified Date/Time: 11/24/2023 09:32 EDT 1,000 cfu/ml Mixed skin contaminants Performing Locations R1: This test was performed at: [facility], [address] [place] [address], [address] , , [facility] Comment on above: Performed By: #### 2 [id number], [id number], [id number], [id number], [id number], [id number] #### [facility] [address] [place] [address] BB Draw & Holdon 11-23-2023 BB D&H Sample drawn for Blood Ba [facility] Comment on above: Performed By: #### 1 [id number] #### [facility] [address] [place] [address] Abdomen/Pelvis w/ Contras ton 11-23-2023 CT [...] contrast amount in ml's: 0 Normal [facility] ED Note-Physicianon 11-23-19 24 ED Note-Physician Basic Information Time Seen: Edel [...] imaging. No significant abnormalities. Patient is very [id number] with her symptoms and now states to [...] day(s), # 100 mL, Refills(s) 0, Pharmacy: [facility], 165, cm, 11/22/23 16:28:00 EDT, Height/Length [...] Oral, Daily Follow-up With When Contact Information Snehal MCMAHON, Hannah De Leon In 3 days 11/25/[address] [place] [address]- Additional Instructions: Patient Education Constipation, Adult, [id number] Attestation I performed a substantive part of [...] EC T (more content not included)... Normal [facility] Comment on above: Result Comment: Elec tronically Signed By: Edel Zhou PA-C\.br\Date and Time Signed: 11/22/23 20:45 EDT\.br\Electronically Co-Signed By: Jayson Calloway DO\.br\Date and Time Co-Signed: 11/23/23 07:15 EDT CBC w/ Auto Diffon 4 Basophils/100 WBC (Bld) 1.1 % Normal 0.0-2.0 [facility] Comment on above: Performed By: #### 1 [id number] #### [facility] [address] [place] [address] Basophils/Leukocytes Auto (Bld) [Pure # fraction] 0.1 E9/L Normal 0.0-0.2 [facility] Comment on above: Performed By: #### 1 [id number] #### [facility] [address] [place] [address] Eosinophils (Bld) [#/Vol] 0.0 E9/L Normal 0.0-0.5 [facility] Comment on above: Performed By: #### 1 [id number] #### [facility] [address] [place] [address] Eosinophils/100 WBC (Bld) 0.2 % Normal 0.0-8.0 [facility] Comment on above: Performed By: #### 1 [id number] #### [facility] [address] [place] [address] Erythrocyte distribution width (RBC) [Ratio] 14.7 % High 10.9-14.2 [facility] Comment on above: Performed By: #### 1 [id number] #### [facility] [address] [place] [address] Hematocrit (Bld) [Volume fraction] 42.0 % Normal 34.0-46.0 [facility] Comment on above: Performed By: #### 1 [id number] #### [facility] [address] [place] [address] Hemoglobin (Bld) [Mass/Vol] 13.9 g/dL Normal 12.0-16.0 [facility] Comment on above: Performed By: #### 1 [id number] #### [facility] [address] [place] [address] Lymphocytes (Bld) [#/Vol] 2.1 E9/L Normal 1.0-4.0 [facility] Comment on above: Performed By: #### 1 [id number] #### [facility] [address] [place] [address] Lymphocytes/100 WBC (Bld) 25.6 % Normal 14.0-50.0 [facility] Comment on above: Performed By: #### 1 [id number] #### [facility] [address] [place] [address] MCH (RBC) [Entitic mass] 30.3 pg Normal 27.0-34.0 [facility] Comment on above: Performed By: #### 1 [id number] #### [facility] [address] [place] [address] MCHC (RBC) [Mass/Vol] 33.1 g/dL Normal 31.4-36.0 [facility] Comment on above: Performed By: #### 1 [id number] #### [facility] [address] [place] [address] MCV (RBC) [Entitic vol] 91.5 fL Normal 80.0-100.0 [facility] Comment on above: Performed By: #### 1 [id number] #### [facility] [address] [place] [address] Monocytes (Bld) [#/Vol] 0.5 E9/L Normal 0.2-1.0 [facility] Comment on above: Performed By: #### 1 [id number] #### [facility] [address] [place] [address] Neutrophils (Bld) [#/Vol] 5.5 E9/L Normal 2.0-7.5 [facility] Comment on above: Performed By: #### 1 [id number] #### [facility] [address] [place] [address] Neutrophils/100 WBC (Bld) 66.8 % Normal 36.0-75.0 [facility] Comment on above: Performed By: #### 1 [id number] #### [facility] [address] [place] [address] Platelet mean volume (Bld) [Entitic vol] 8.3 fL Normal 6.4-10.8 [facility] Comment on above: Performed By: #### 1 [id number] #### [facility] [address] [place] [address] Platelets (Bld) [#/Vol] 250.0 E9/L Normal 150.0-500.0 [facility] Comment on above: Performed By: #### 1 [id number] #### [facility] [address] [place] [address] RBC (Bld) [#/Vol] 4.6 E12/L Normal 4.3-5.9 [facility] Comment on above: Performed By: #### 1 [id number] #### [facility] [address] [place] [address] WBC corrected for nucl RBC Auto (Bld) [#/Vol] 8.3 E9/L Normal 4.0-11.0 [facility] Comment on above: Performed By: #### 1 [id number] #### [facility] [address] [place] [address] CHEMISTRYOrdered By: SYSTEM SYSTEM on 11-22-2023 Albumin [...] 11-22-2023 Albumin [Mass/Vol] 4.6 g/dL Normal 3.3-5.0 [facility] Comment on above: Performed By: #### 1 [id number] #### [facility] [address] [place] [address] Albumin/Globulin (S) [Mass conc ratio] 1.8 Normal 1.1-2.2 [facility] Comment on above: Performed By: #### 1 [id number] #### [facility] [address] [place] [address] ALP [Catalytic activity/Vol] 90 Int._Unit/L Normal 21-98 [facility] Comment on above: Performed By: #### 1 [id number] #### [facility] [address] [place] [address] ALT No additional P-5'-P [Catalytic activity/Vol] 41 Int._Unit/L Normal 6-46 [facility] Comment on above: Performed By: #### 1 [id number] #### [facility] [address] [place] [address] Anion gap [Moles/Vol] 13 mmol/L Normal 6-16 [facility] Comment on above: Performed By: #### 1 [id number] #### [facility] [address] [place] [address] AST [Catalytic activity/Vol] 30 Int._Unit/L Normal 5-43 [facility] Comment on above: Performed By: #### 1 [id number] #### [facility] [address] [place] [address] Bilirubin [Mass/Vol] 1.0 mg/dL Normal 0.0-1.1 [facility] Comment on above: Performed By: #### 1 [id number] #### [facility] [address] [place] [address] Calcium [Mass/Vol] 10.0 mg/dL Normal 8.9-11.1 [facility] Comment on above: Performed By: #### 1 [id number] #### [facility] [address] [place] [address] Chloride [Moles/Vol] 99 mmol/L Low 101-111 [facility] Comment on above: Performed By: #### 1 [id number] #### [facility] [address] [place] [address] CO2 [Moles/Vol] 27 mmol/L Normal 21-31 [facility] Comment on above: Performed By: #### 1 [id number] #### [facility] [address] [place] [address] Creatinine [Mass/Vol] 1.0 mg/dL Normal 0.5-1.3 [facility] Comment on above: Performed By: #### 1 [id number] #### [facility] [address] [place] [address] Globulin (S) [Mass/Vol] 2.6 g/dL Normal 1.4-4.0 [facility] Comment on above: Performed By: #### 1 [id number] #### [facility] [address] [place] [address] Glucose [Mass/Vol] 114 mg/dL Normal 55-199 [facility] Comment on above: Performed By: #### 1 [id number] #### [facility] [address] [place] [address] Potassium [Moles/Vol] 4.2 mmol/L Normal 3.5-5.3 [facility] Comment on above: Performed By: #### 1 [id number] #### [facility] [address] [place] [place] [address] Protein [Mass/Vol] 7.2 g/dL Normal 6.0-7.8 [facility] Comment on above: Performed By: #### 1 [id number] #### [facility] [address] [place] [address] Sodium [Moles/Vol] 135 mmol/L Normal 135-145 [facility] Comment on above: Performed By: #### 1 [id number] #### [facility] [address] [place] [address] Urea nitrogen [Mass/Vol] 20 mg/dL Normal 5-21 [facility] Comment on above: Performed By: #### 1 [id number] #### [facility] [address] [place] [address] Urea nitrogen/Creatinine [Mass ratio] 20 No Units Normal 10-20 [facility] Comment on above: Performed By: #### 1 [id number] #### [facility] [address] [place] [address] COAGULATIONOrdered By: Elena Dinero on 11-22-2023 aPTT Coag (PPP) [Time] 41.3 s High 25.1 - 36.5 second(s) [facility] Comment on above: Interpretive Data: [...] the same coagulation reagent and instrumentation as [facility]. Currently there are no coagulation studies available worldwide for children to 14 days, and no normal ranges. Heparin therapeutic range (represented by Anti-Factor Xa activity of 0.2 - 0.4 U/mL) corresponds to PTT of 56.6 - 109.0 sec. INR Coag (PPP) [Relative time] 1.37 {INR} Invalid Interpretation Code [facility] Comment on above: Interpretive Data: I NR results are specifically intended to assess patients stabilized on long-term Anticoagulation therapy suggested INR s Less Intensive Anticoagulation 2.0 3.0 Conventional Range 3.0 4.5 PT Coag (PPP) [Time] 15.4 s High 9.4 - 1 2.5 second(s) [facility] Comment on above: Interpretive Data: [...] the same coagulation reagent and instrumentation as [facility]. Currently there are no coagulation studies available worldwide for children to 14 days, and no normal ranges. Consent for Treatmenton 11-12 Consent for Treatment [id number]#1 .00TIFF Normal [facility] Discharge Instructionson Discharge Instructions [id number]# 1.00TIFF Normal [facility] ED Clinical Summaryon 2023 ED Clinical Summary [place] [id number] ED Clinical Summary Person Information Name: ASYA ASENCIO I [place] Age: 73 Years : 1950 Sex: Female Language: Guinean PCP: Snehal MCMAHON, Hannah De Leon Marital Status: Visit Id: Visit Reason: Back [...] 11/22/2023 20:57:39 11/22/2023 20:57:39 11/22/2023 20:57:39 ADDRESS: [address] [place] [address] [address] [id number] PHYS DOC NOTES: MEDICAL INFORMATION: Prescriptions Given: New Medications [facility] [address], [address] [place] [id number], [phone] lactulose (lactulose 10 g/15 mL Oral Syrup) [...] 0. PATIENT EDUCATION INFORMATION: Instructions: Constipation, Adult, Xtci-cx-Vlmo Follow up: With: Address: When: Snehal MCMAHON, Hannah De Leon [place] [address] In 3 days 11/25/2023 DIAGNOSIS: 1:Constipation Normal [facility] ED Patient Education Noteon 11-22-2023 ED Patient [...] in fat and sugar, such as: ? Italian fries. ? Hamburgers. ? Cookies. ? Candy. ? Soda. ? Drink enough fluid to keep your pee (urine) pale yellow. General instructions ? Exercise regularly or as told by your doctor. Try to do 150 minutes of exercise each week. ? Go to the restroom when you feel like you need to poop. Do not hold it in. ? Take xcld-lzk-nucagkl and prescription medicines only as told by [...] your pee (urine) pale yellow. ? Take bgeq-dxm-dzappbo and prescription medicines only as told by your doctor. These include any fiber supplements. This information is not intended to replace advice given to you by your health care provider. Make sure you discuss any questions you have with your health care provider. Document Revised: 06/17/2020 Document Reviewed: 06/17/2020 Elsevier Patient Education ? 2022 [employer]. Normal [facility] ED Patient Summaryon 024 ED Patient Summary [address] [address] Patient Discharge Instructions Person Information Name: ASYA ASENCIO I Age: 73 Years Arrival Date: 11/22/2023 16:16:41 Discharge Diagnosis: 1:Constipation Primary Care Physician: Hannah Brian MD Provider Information Primary Provider: Jayson Calloway DO Advanced Wood Setter:None The exam and treatment you received in the Emergency Department were for an urgent problem and are not intended as complete care. It is important that you follow up with a doctor, nurse practitioner, or physician?s field assistant for ongoing care. If your symptoms become worse or you do not improve as expected and you are unable to reach your usual health care provider, you should return to the Emergency Department. We are available 24 hours a day. ASYA ASENCIO I has been given the following list of patient education materials, prescriptions and follow-up instructions: Follow-up Instructions: With: Address: When: Hannah Brian MD [place] [address] In 3 days 11/25/2023 In the event that this physician does not participate in your insurance network, please consult with your insurance company to find a nearby participating provider. Patient Education Materials: Constipation, Adult, Wsmm-ze-Dgwa A MESSAGE TO ALL PATIENTS REGARDING OPIOIDS PRESCRIPTION OPIOIDS: WHAT YOU NEED TO KNOW Prescription opioids can be used to help relieve sindncxt-ha-brcaoo pain and are often prescribed following a [...] be struggling with addiction, tell your health certified social workers in health care and ask for guidance or call [facility]?S National Helpline at 7-986-411-SBHC. j Source: US Department of Health and Human S (more content not included)... Normal [facility] HEMATOLOGYOrdered By: SYSTEM SYSTEM on 11-22-2023 [...] 11-22-2023 Magnesium [Mass/Vol] 2.0 mg/dL Normal 1.3-2.4 [facility] Comment on above: Performed By: #### 1 [id number] #### [facility] [address] [place] [address] PT & PTTon 11-22-2023 aPTT Coag (PPP) [Time] 41.3 second(s) High 25.1-36.5 [facility] Comment on above: Result Comment: Para [...] the same coagulation reagent and instrumentation as [facility]. Currently there are no coagulation studies available worldwide for children to 14 days, and no normal ranges. Heparin therapeutic range (represented by Anti-Factor Xa activity of 0.2 - 0.4 U/mL) corresponds to PTT of 56.6 - 109.0 sec. Performed By: #### 1 [id number] #### [facility] [address] [place] [address] INR Coag (PPP) [Relative time] 1.37 {INR} Invalid Interpretation Code [facility] Comment on above: Result Comment: INR results are specifically intended to assess patients stabilized on long-term Anticoagulation therapy suggested INR?s ?Less Intensive Anticoagulation? 2.0 ? 3.0 Conventional Range 3.0 ? 4.5 Performed By: #### 1 [id number] #### [facility] [address] [place] [address] PT Coag (PPP) [Time] 15.4 second(s) High 9.4-12.5 [facility] Comment on above: Result Comment: 15 [...] the same coagulation reagent and instrumentation as [facility]. Currently there are no coagulation studies available worldwide for children to 14 days, and no normal ranges. Performed By: #### 1 [id number] #### [facility] [address] [place] [address] RAD - Preliminary Cat Scan R eporton 11-22-2023 RAD - Preliminary Cat Scan Report [id number]# 1.00TIFF Normal [facility] Troponin 0 Hr.on 11-22-2023 Troponin 12.30 pg/mL Normal 10.10-27.10 [facility] Comment on above: Result Comment: The 95% CI (Confidence Interval) PPV (Positive Predictive Value) for myocardial infarction in females is 38 pg/mL, in males 51 pg/mL. The results should be used in conjunction with clinical conditions of myocardial infarction. (Access High Sensitivity Troponin I Instructions For Use, [employer], March 2018) Performed By: #### 1 [id number] #### [facility] [address] [place] [address] UA with Cult Rflxon 11-22-19 24 Bilirubin Ql (U) Negative Normal Negative [facility] Comment on above: Performed By: #### 2 111475, 51212348, 0645553, 1110609, 6876336, 3510764 #### [facility] [address] [place] [address] Clarity (U) Clear Normal Clear [facility] Comment on above: Performed By: #### 2 948751, 59158750, 4484811, 7656339, 5326948, 8414265 #### [facility] [address] [place] [address] Color (U) Colorless Abnormal Yellow [facility] Comment on above: Result Comment: Micr oscopic readings are only performed on those samples that meet specific criteria set forth by [facility]. Performed By: #### 2 744621, 26428206, 4565177, 2614522, 4016171, 1435346 #### [facility] [address] [place] [address] Epithelial cells.squamous Auto (Urine sed) [#/Area] 0-2 Normal 0-2 [facility] Comment on above: Performed By: #### 2 997081, 88491405, 0008044, 8877462, 9254074, 9527772 #### [facility] [address] [place] [address] Glucose Ql (U) Negative Normal Negative [facility] Comment on above: Performed By: #### 2 642737, 95790453, 7438988, 1268958, 2873797, 7406660 #### [facility] [address] [place] [address] Hemoglobin Auto test strip (U) [Mass/Vol] Negative Normal Negative [facility] Comment on above: Performed By: #### 2 361403, 99157814, 9137925, 9390813, 0298012, 5703461 #### [facility] [address] [place] [address] Ketones Auto test strip Ql (U) Negative Normal Negative [facility] Comment on above: Performed By: #### 2 070796, 72179012, 0338733, 8771466, 5643555, 0690878 #### [facility] [address] [place] [address] Leukocyte esterase Auto test strip Ql (U) 75 Ghislaine/uL Abnormal Negative [facility] Comment on above: Performed By: #### 2 777961, 63903185, 9060734, 8491776, 5604503, 6218041 #### [facility] [address] [place] [address] Mucus Auto Ql (U) Negative Normal Negative [facility] Comment on above: Performed By: #### 2 174071, 17510299, 0957840, 1703580, 6585275, 9693100 #### [facility] [address] [place] [address] Nitrite Auto test strip Ql (U) Negative Normal Negative [facility] Comment on above: Performed By: #### 2 003107, 26010162, 0741576, 7524354, 9701836, 5398638 #### [facility] [address] [place] [address] pH (U) 7.0 [pH] Invalid Interpretation Code 5.0-9.0 [facility] Comment on above: Performed By: #### 2 911008, 70656366, 0297168, 0312370, 9012478, 1128072 #### [facility] [address] [place] [address] Protein Ql (U) Negative Normal Negative [facility] Comment on above: Performed By: #### 2 155091, 19499431, 4800067, 3256298, 2816532, 0667912 #### [facility] [address] [place], [place] [address] RBC Ql (U) 0-3 Normal 0-3 [facility] Comment on above: Performed By: #### 2 845107, 10997218, 9378861, 4789230, 5295667, 5439161 #### [facility] [address] [place], [place] [address] Specific gravity (U) [Rel density] 1.004 Invalid Interpretation Code 1.005-1.030 [facility] Comment on above: Performed By: #### 2 934570, 89552389, 4301294, 4132080, 0630622, 8334499 #### [facility] [address] [place] [address] Urobilinogen (U) [Mass/Vol] Negative Normal Negative [facility] Comment on above: Performed By: #### 2 756141, 76028576, 0109814, 4216749, 2235759, 0012753 #### [facility] [address] [place] [address] WBC Auto (Urine sed) [#/Area] 0-5 Normal 0-5 [facility] Comment on above: Performed By: #### 2 169667, 61029601, 5355589, 2359034, 0858671, 8107413 #### [facility] [address] [place] [address] Type of Urine collection method Clean Catch Normal [facility] Comment on above: Performed By: #### 2 752935, 94745116, 9204092, 3537547, 9403608, 9265670 #### [facility] [address] [place] [address] [place] [address] URINALYSISOrdered By: SYSTEM SYSTEM on 11-22-2023 Bilirubin [...] that meet specific criteria set forth by [facility]. Epithelial cells.squamous Auto (Urine sed) [...] Desc Clean Catch (11/22/23 4:36 PM) Normal [facility] UA Auto SS XR Abdomen 1 Viewon 11-22-19 24 XR Abdomen 1 View Exam Date/Time: 11/22/2023 [...] Moiz Carreno MD Transcribed by: ARAVIND Technologist: MARY Technical Comments Radiation Dose: Ka,r in mGy = na DAP = na Normal [facility] eGFRon 11-22-2023 eGFR 58 mL/min/1.73 m2 Low >=59 [facility] Comment on above: Order Comment: Order added by Discern Expert. Performed By: #### 1 [id number] #### [facility] [address] [place] [address] Consent for Treatmenton Consent for Treatment [id number]#1 .00TIFF Normal [facility] US Abdomen, Limitedon 2023 US Abdomen, [...] REPORT Dictated: 11/13/2023 3:31 pm Johan Nava MD. Signed (Electronic Signature): 11/13/2023 3:31 pm Signed by: Johan Nava MD Transcribed by: ARAVIND Technologist: JOSE Normal [facility] Physician Orderon 11-09-2023 Physician Order [id number]#1 .00TIFF Normal [facility] CNOVon 10-16-2023 CNOV Normal [facility] CNPNon 10-16-2023 CNPN Normal [facility] UA DIP, URINE (POC)on 2023 BILIRUBIN UA (POCT) Negative Negative [facility] CLARITY UA (POCT) Clear [facility] COLOR UA (POCT) Yellow [facility] GLUCOSE UA (POCT) Negative Negative mg/dL [facility] Hemoglobin Ql (U) Trace-lysed Abnormal Negative [facility] KETONE UA (POCT) Negative Negative mg/dL [facility] LEUKOCYTES UA (POCT) Large Abnormal Negative [facility] NITRITE UA (POCT) Negative Negative [facility] PH UA (POCT) 6.0 4.5 - 8.0 [facility] Protein Ql (U) Negative Negative mg/dL [facility] SPECIFIC GRAVITY UA (POCT) 1.010 1.005 - 1.030 [facility] UROBILINOGEN UA (POCT) 0.2 E.U./dL Normal E.U./dL [facility] ED Note-Physicianon 10-06-19 ED Note-Physician Basic Information [...] (K59.00: Constipation, unspecified) (more content not included)... Normal [facility] Comment on above: Result Comment: Elec tronically Signed By: Nica Knox PA-C\.br\Date and Time Signed: 10/05/23 21:57 EST\.br\Electronically Co-Signed By: Koby Masterson DO\.br\Date and Time Co-Signed: 10/06/23 00:54 EST Consent for Treatmenton 09-15 Consent for Treatment [id number]#1 .00TIFF Normal [facility] Discharge Instructionson Discharge Instructions [id number]# 1.00TIFF Normal [facility] ED Clinical Summaryon 2023 ED Clinical Summary [place] [id number] ED Clinical Summary Person Information Name: ASYA ASENCIO I Patricia/[facility] Age: 73 Years : 1950 Sex: Female Language: Guinean PCP: Peggy Nazario MD Marital Status: Visit Id: Visit Reason: Abdominal [...] 10/05/2023 21:56:34 10/05/2023 21:56:34 10/05/2023 21:56:34 ADDRESS: [address] [place] [address] [address] [facility] [id number] PHYS DOC NOTES: MEDICAL INFORMATION: Prescriptions Given: Medications to Continue Taking That Have Changed [facility] [address], [address] [place], [place] [id number], [phone] START: carvedilol (carvedilol 3.125 mg Tab) 1 [...] 0. PATIENT EDUCATION INFORMATION: Instructions: Constipation, Adult, Xkhl-xw-Wgjb; Gastroesophageal Reflux Disease, Adult, Sqqg-sk-Jxih; Abdominal Pain, Adult, Wyyz-oz-Pxiw Follow up: With: Address: When: Johan HENRIQUEZ [address] [place], [place] [id number] [phone] (1) In 3 days 10/08/2023 With: Address: When: Peggy Nazario [address] [employer] [place] [phone] (1) In 3 days DIAGNOSIS: 1:Constipation Normal [facility] ED Patient Education Noteon 10-05-2023 ED [...] in fat and sugar, such as: ? Italian fries. ? Hamburgers. ? Cookies. ? Candy. ? Soda. ? Drink enough fluid to keep your pee (urine) pale yellow. General instructions ? Exercise regularly or as told by your doctor. Try to do 150 minutes of exercise each week. ? Go to the restroom when you feel like you need to poop. Do not hold it in. ? Take lipg-inb-gbewijo and prescription medicines only as told by [...] your pee (urine) pale yellow. ? Take luke-qqd-zafoalt and prescription medicines only as told by your doctor. These include any fiber supplements. This information is not intended to replace advice given to you by your health care provider. Make sure you discuss any questions you have with your health care provider. Document Revised: 06/17/2020 Document Reviewed: 06/17/2020 [employer] Patient Education ? 2022 [employer] Gastroesophageal Reflux Disease, Adult Gastroesophageal reflux (ZUNILDA) [...] ? Hors (more content not included)... Normal [facility] ED Patient Summaryon 024 ED Patient Summary [place] [id number] Patient Discharge Instructions Person Information Name: ASYA ASENCIO I Age: 73 Years Arrival Date: 10/05/2023 17:54:10 Discharge Diagnosis: 1:Constipation Primary Care Physician: Peggy Nazario MD Provider Information Primary Provider: Koby Masterson DO Advanced Wood Setter:None The exam and treatment you received in the Emergency Department were for an urgent problem and are not intended as complete care. It is important that you follow up with a doctor, nurse practitioner, or physician?s field assistant for ongoing care. If your symptoms become [...] Follow-up Instructions: With: Address: When: Johan HENRIQUEZ [address] [place], [place] [id number] [phone] (1) In 3 days 10/08/2023 With: Address: When: Peggy Nazario [address] [place] [phone] (1) In 3 days In the event that this physician does not participate in your insurance network, please consult with your insurance company to find a nearby participating provider. Patient Education Materials: Constipation, Adult, Tvjv-rc-Bibn; Gastroesophageal Reflux Disease, Adult, Vois-nc-Xdnx; Abdominal Pain, Adult, Lwky-uv-Fmqv A MESSAGE TO ALL PATIENTS REGARDING OPIOIDS PRESCRIPTION OPIOIDS: WHAT YOU NEED TO KNOW Prescription opioids can be used to help relieve slqzgalc-aa-wysutz pain and are often prescribed following a [...] ? If (more content not included)... Normal [facility] CNPNon 10-02-2023 CNPN Normal [facility] Echocardiographyon Echocardiography [id number] 0 [id number]#1 .00TIFF Normal [facility] Outside Cardiovascularon Outside Cardiovascular [id number]#1 .00TIFF Normal [facility] Outside Cardiovascular [id number]#1 .00TIFF Normal [facility] Outside Cardiovascular [id number]#1 .00TIFF Normal [facility] Outside Operativeon 09-27-19 24 Outside Operative [id number] 0 [id number]#1 .00TIFF Normal [facility] Outside Operative [id number]#1 .00TIFF Normal [facility] Outside Radiologyon 09-27-19 24 Outside Radiology [id number] 0 [id number]#1 .00TIFF Normal [facility] Outside Radiology [id number] 0 [id number]#1 .00TIFF Normal [facility] CBC panel Auto (Bld)on 09-26 Erythrocyte distribution width (RBC) [Ratio] 13.2 % Normal 11.5-15.0 [facility] Comment on above: Order Comment: Speci men Type: BLOOD SPECIMENOrdering Facility: [facility] Address: [address] [place] [address] Performed By: #### 5 8410-2 ####[facility] LABCLIA [id number] [place] [address] [place] Hematocrit (Bld) [Volume fraction] 38.1 % Normal 36.0-46.0 [facility] Comment on above: Order Comment: Speci men Type: BLOOD SPECIMENOrdering Facility: [facility] Address: [address] [place] [address] Performed By: #### 5 8410-2 ####[facility] LABIA [id number] [place] [address] [place] Hemoglobin (Bld) [Mass/Vol] 12.2 g/dL Normal 11.5-15.5 [facility] Comment on above: Order Comment: Speci men Type: BLOOD SPECIMENOrdering Facility: [facility] Address: [address] [place] [address] Performed By: #### 5 8410-2 ####[facility] LABIA [id number] [place] [address] [place] MCH (RBC) [Entitic mass] 29.5 pg Normal 26.0-34.0 [facility] Comment on above: Order Comment: Speci men Type: BLOOD SPECIMENOrdering Facility: [facility] Address: [address] [place] [address] Performed By: #### 5 8410-2 ####[facility] LABIA [id number] [place] [address] [place] MCHC (RBC) [Mass/Vol] 32.0 g/dL Normal 30.5-36.0 [facility] Comment on above: Order Comment: Speci men Type: BLOOD SPECIMENOrdering Facility: [facility] Address: [address] [place] [address] Performed By: #### 5 8410-2 ####[facility] LABIA [id number] [place] [address] [place] MCV (RBC) [Entitic vol] 92.0 fL Normal 80.0-100.0 [facility] Comment on above: Order Comment: Speci men Type: BLOOD SPECIMENOrdering Facility: [facility] Address: [address] [place] [address] Performed By: #### 5 8410-2 ####[facility] LABCLIA [id number] [place] [address] [place] Nucleated RBC (Bld) [#/Vol] 10*3/uL Normal <0.01 [facility] Comment on above: Order Comment: Speci men Type: BLOOD SPECIMENOrdering Facility: [facility] Address: [address] [place] [address] Performed By: #### 5 8410-2 ####[facility] LABIA [id number] [place] [address] [place] Platelet mean volume (Bld) [Entitic vol] 10.5 fL Normal 9.0-12.7 [facility] Comment on above: Order Comment: Speci men Type: BLOOD SPECIMENOrdering Facility: [facility] Address: [address] [place] [address] Performed By: #### 5 8410-2 ####[facility] LABIA [id number] [place] [address] [place] Platelets (Bld) [#/Vol] 195 10*3/uL Normal 150-400 [facility] Comment on above: Order Comment: Speci men Type: BLOOD SPECIMENOrdering Facility: [facility] Address: [address] [place] [address] Performed By: #### 5 8410-2 ####[facility] LABIA [id number] [place] [address] [place] RBC (Bld) [#/Vol] 4.14 10*6/uL Normal 3.90-5.20 [facility] Comment on above: Order Comment: Speci men Type: BLOOD SPECIMENOrdering Facility: [facility] Address: [address] [place] [address] Performed By: #### 5 8410-2 ####[facility] LABIA [id number] [place] [address] [place] WBC (Bld) [#/Vol] 6.03 10*3/uL Normal 3.70-11.00 [facility] Comment on above: Order Comment: Speci men Type: BLOOD SPECIMENOrdering Facility: [facility] Address: [address] [place], [place] [address] [address] Performed By: #### 5 8410-2 ####[facility] LABCLIA [id number] [facility] [place] [address] [place] [facility] CBC PNL BLD AUTOon 09-26 [facility] NRBC # BLD AUTO <0.01 NINF [facility] PLATELET # BLD AUTO 195 [facility] PMV BLD AUTO 10.5 fL 9.0 - 12.7 fL [facility] WBC # BLD AUTO 6.03 [facility] Erythrocyte distribution width (RBC) [Ratio] 13.2 % 11.5 - 15.0 % [facility] Hematocrit (Bld) [Volume fraction] 38.1 % 36.0 - 46.0 % [facility] Hemoglobin (Bld) [Mass/Vol] 12.2 g/dL 11.5 - 15.5 g/dL [facility] MCH (RBC) [Entitic mass] 29.5 pg 26.0 - 34.0 pg [facility] MCHC (RBC) [Mass/Vol] 32.0 g/dL 30.5 - 36.0 g/dL [facility] MCV (RBC) [Entitic vol] 92.0 fL 80.0 - 100.0 fL [facility] RBC (Bld) [#/Vol] 4.14 10*6/uL 3.90 - 5.2 0 m/uL [facility] Specimen Type: BLOOD SPECIMEN [facility] Address: [address] [place] [address] Original Ordering Provider: ALEA GUZMAN [facility] CNOVon 09-26-2023 CNOV Normal [facility] CNPTOUTREACHon 09-26-2023 CNPTOUTREACH Normal [facility] Comprehensive metabolic 2000 panelon 09-26-2023 Albumin [Mass/Vol] 4.2 g/dL Normal 3.9-4.9 [facility] Comment on above: Order Comment: Speci men Type: BLOOD SPECIMENOrdering Facility: [facility] Address: [address] [place] [address] Performed By: #### 3 3762-6, 89229-1 ####[facility] LABCLIA [id number] [address] [address] [place] ALP [Catalytic activity/Vol] 57 U/L Normal 34-123 [facility] Comment on above: Order Comment: Speci men Type: BLOOD SPECIMENOrdering Facility: [facility] Address: [address] [place] [id number] Performed By: #### 3 3762-6, ####[facility] LABCLIA [id number] [place] [address] [place] ALT [Catalytic activity/Vol] 36 U/L Normal 7-38 [facility] Comment on above: Order Comment: Speci men Type: BLOOD SPECIMENOrdering Facility: [facility] Address: [address] [place], [place] [address] Performed By: #### 3 3762-6, 87299-8 ####[facility] LABCLIA [id number] [place] [address] [place] Anion gap [Moles/Vol] 10 mmol/L Normal 9-18 [facility] Comment on above: Order Comment: Speci men Type: BLOOD SPECIMENOrdering Facility: [facility] Address: [address] [place] [id number] Performed By: #### 3 3762-6, 46122-8 ####[facility] LABCLIA [id number] [place] [address] [place] AST [Catalytic activity/Vol] 29 U/L Normal 13-35 [facility] Comment on above: Order Comment: Speci men Type: BLOOD SPECIMENOrdering Facility: [facility] Address: [address] [place], [place] [address] Performed By: #### 3 3766, ####[facility] LABCLIA [id number] [address] [address] [place] Bilirubin [Mass/Vol] 0.6 mg/dL Normal 0.2-1.3 [facility] Comment on above: Order Comment: Speci men Type: BLOOD SPECIMENOrdering Facility: [facility] Address: [address] [place] [address] Performed By: #### 3 3766, ####[facility] LABCLIA [id number] [place] [address] [place] Calcium [Mass/Vol] 9.6 mg/dL Normal 8.5-10.2 [facility] Comment on above: Order Comment: Speci men Type: BLOOD SPECIMENOrdering Facility: [facility] Address: [address] [place] [address] Performed By: #### 3 6, ####[facility] LABCLIA [id number] [place] [address] [place] Chloride [Moles/Vol] 100 mmol/L Normal 97-105 [facility] Comment on above: Order Comment: Speci men Type: BLOOD SPECIMENOrdering Facility: [facility] Address: [address] [place] [address] Performed By: #### 3 3766, ####[facility] LABCLIA [id number] [place] [address] [place] CO2 [Moles/Vol] 29 mmol/L Normal 22-30 [facility] Comment on above: Order Comment: Speci men Type: BLOOD SPECIMENOrdering Facility: [facility] Address: [address] [place] [address] Performed By: #### 3 3762-6, ####[facility] LABCLIA [id number] [place] [address] [place] Creatinine [Mass/Vol] 0.82 mg/dL Normal 0.58-0.96 [facility] Comment on above: Order Comment: Nichole becerra Type: BLOOD SPECIMENOrdering Facility: [facility] Address: [address] [place] [address] Performed By: #### 3 3762-6, 40559-1 ####[facility] LABCLIA [id number] [address] [place] Creatinine and Glomerular filtration rate.predicted panel (S/P/Bld) 75 mL/min/1.73m??? Normal >=60 [facility] Comment on above: Order Comment: Nichole becerra Type: BLOOD SPECIMENOrdering Facility: [facility] Address: [address] [place] [address] Result Comment: Shelley mated Glomerular Filtration Rate [...] actual GFR. Performed By: #### 3 3762-6, 51528-2 ####[facility] LABCLIA [id number] [place] [address] [place] Glucose [Mass/Vol] 129 mg/dL High 74-99 [facility] Comment on above: Order Comment: Nichole becerra Type: BLOOD SPECIMENOrdering Facility: [facility] Address: [address] [place] [address] Result Comment: The [place] [employer] (ADA) provides guidance for cutoff [...] Standards of Medical Care in Diabetes 2016, [place] [employer]. Diabetes Care. 2016.39(Suppl 1). Performed By: #### 3 3762-6, ####[facility] LABCLIA [id number] [address] [address] [place] Potassium [Moles/Vol] 4.3 mmol/L Normal 3.7-5.1 [facility] Comment on above: Order Comment: Speci men Type: BLOOD SPECIMENOrdering Facility: [facility] Address: [address] [place] [address] Performed By: #### 3 376-6, ####[facility] LABCLIA [id number] [place] [address] [place] Protein [Mass/Vol] 6.4 g/dL Normal 6.3-8.0 [facility] Comment on above: Order Comment: Speci men Type: BLOOD SPECIMENOrdering Facility: [facility] Address: [address] [place] [address] Performed By: #### 3 376-6, ####[facility] LABCLIA [id number] [place] [address] [place] Sodium [Moles/Vol] 139 mmol/L Normal 136-144 [facility] Comment on above: Order Comment: Speci men Type: BLOOD SPECIMENOrdering Facility: [facility] Address: [address] [place] [address] Performed By: #### 3 3762-6, ####[facility] LABCLIA [id number] [place] [id number] [place] Urea nitrogen [Mass/Vol] 15 mg/dL Normal 7-21 [facility] Comment on above: Order Comment: Speci men Type: BLOOD SPECIMENOrdering Facility: [facility] Address: [address] [place] [id number] Performed By: #### 3 3762-6, 26190-8 ####[facility] LABCLIA [id number] [place] [address] [place] NNO33sv 09-26-2023 ECG01 Normal [facility] NT-proBNP SerPl-mCncon 09-26 Natriuretic peptide.B prohormone N-Terminal [Mass/Vol] 2047 pg/mL High <450 [facility] Comment on above: Order Comment: Speci men Type: BLOOD SPECIMENOrdering Facility: [facility] Address: [address] [place], [place] [address] [address] Performed By: #### 3 3762-6, 26867-1 ####[facility] LABCLIA [id number] [place] [address] [place] URINALYSIS, REFLEX MICROSCOP ICon 09-26-2023 Bacteria LM.HPF (Urine sed) [#/Area] Few Abnormal None Seen /HPF [facility] Bilirubin Ql (U) Negative Negative [facility] Clarity (Unsp spec) Cloudy Abnormal Clear [facility] Color (U) Yellow Yellow [facility] Epithelial cells LM.HPF (Urine sed) [#/Area] Moderate [facility] Epithelial cells LM.HPF (Urine sed) [#/Area] Few Abnormal None Seen /HPF [facility] Glucose Test strip (U) [Mass/Vol] Negative Trace, Negative [facility] Hemoglobin Ql (U) 1+ Abnormal Negative, Trace [facility] Ketones Ql (U) Negative Negative, Trace [facility] Leukocyte esterase Test strip Ql (U) 500 Ghislaine/uL Abnormal Negative, 25 Ghislaine/uL [facility] Nitrite Ql (U) Negative Negative [facility] pH (U) 6.0 [pH] 5.0 - 8.0 [facility] Protein (U) [Mass/Vol] Negative Trace, Negative [facility] RBC LM.HPF (Urine sed) [#/Area] 3-5 /HPF Abnormal 0-3 /HPF [facility] Specific gravity (U) [Rel density] 1.013 1.005 - 1.030 [facility] Urobilinogen Ql (U) Normal Normal [facility] WBC LM.HPF (Urine sed) [#/Area] /[HPF] Abnormal 0-5 /HPF [facility] Bacteria LM.HPF (Urine sed) [#/Area] Few Abnormal None Seen [facility] Comment on above: Order Comment: Speci men Type: URINE SPECIMENOrdering Facility: [facility] Address: [address] [place] [address] Performed By: #### L [id number] ####[facility] LABCLIA [id number] [place] [address] [place] Bilirubin Ql (U) Negative Normal Negative [facility] Comment on above: Order Comment: Speci men Type: URINE SPECIMENOrdering Facility: [facility] Address: [address] [place] [address] Performed By: #### L [id number] ####[facility] LABCLIA [id number] [place] [address] [place] Clarity (Unsp spec) Cloudy Abnormal Clear [facility] Comment on above: Order Comment: Speci men Type: URINE SPECIMENOrdering Facility: [facility] Address: [address] [place] [address] Performed By: #### L [id number] ####[facility] LABCLIA [id number] [place] [address] [place] Color (U) Yellow Normal Yellow [facility] Comment on above: Order Comment: Speci men Type: URINE SPECIMENOrdering Facility: [facility] Address: [address] [place] [address] Performed By: #### L [id number] ####[facility] LABCLIA [id number] [place] [address] [place] Epithelial cells LM.HPF (Urine sed) [#/Area] Moderate Normal [facility] Comment on above: Order Comment: Speci men Type: URINE SPECIMENOrdering Facility: [facility] Address: [address] [place] [address] Result Comment: Few Performed By: #### L [id number] ####[facility] LABCLIA [id number] [place] [address] [place] Glucose Test strip (U) [Mass/Vol] Negative Normal Trace, Negative [facility] Comment on above: Order Comment: Speci men Type: URINE SPECIMENOrdering Facility: [facility] Address: [address] [place] [address] Performed By: #### L [id number] ####[facility] LABCLIA [id number] [place] [address] [place] Hemoglobin Ql (U) 1+ Abnormal Negative, Trace [facility] Comment on above: Order Comment: Speci men Type: URINE SPECIMENOrdering Facility: [facility] Address: [address] [place] [address] Performed By: #### L [id number] ####[facility] LABCLIA [id number] [place] [address] [place] Ketones Ql (U) Negative Normal Negative, Trace [facility] Comment on above: Order Comment: Speci men Type: URINE SPECIMENOrdering Facility: [facility] Address: [address] [place] [address] Performed By: #### L [id number] ####[facility] LABCLIA [id number] [place] [address] [place] Leukocyte esterase Test strip Ql (U) 500 Ghislaine/uL Abnormal Negative, 25 Ghislaine/uL [facility] Comment on above: Order Comment: Speci men Type: URINE SPECIMENOrdering Facility: [facility] Address: [address] [place] [address] Performed By: #### L [id number] ####[facility] LABCLIA [id number] [place] [address] [place] Nitrite Ql (U) Negative Normal Negative [facility] Comment on above: Order Comment: Speci men Type: URINE SPECIMENOrdering Facility: [facility] Address: [address] [place] [address] Performed By: #### L [id number] ####[facility] LABIA [id number] [place] [address] [place] pH (U) 6.0 [pH] Normal 5.0-8.0 [facility] Comment on above: Order Comment: Speci men Type: URINE SPECIMENOrdering Facility: [facility] Address: [address] [place] [address] Performed By: #### L [id number] ####[facility] [id number] [place] [address] [place] Protein (U) [Mass/Vol] Negative Normal Trace, Negative [facility] Comment on above: Order Comment: Speci men Type: URINE SPECIMENOrdering Facility: [facility] Address: [address] [place] [address] Performed By: #### L [id number] ####[facility] [id number] [place] [address] [place] RBC LM.HPF (Urine sed) [#/Area] 3-5 /HPF Abnormal 0-3 /HPF [facility] Comment on above: Order Comment: Speci men Type: URINE SPECIMENOrdering Facility: [facility] Address: [address] [place] [address] Performed By: #### L [id number] ####[facility] LABIA [id number] [place] [address] [place] Specific gravity (U) [Rel density] 1.013 Normal 1.005-1.030 [facility] Comment on above: Order Comment: Speci men Type: URINE SPECIMENOrdering Facility: [facility] Address: [address] [place] [address] Performed By: #### L [id number] ####[facility] LABIA [id number] [place] [address] [place] Urobilinogen Ql (U) Normal Normal Normal [facility] Comment on above: Order Comment: Speci men Type: URINE SPECIMENOrdering Facility: [facility] Address: [address] [place] [address] Performed By: #### L [id number] ####[facility] LABCLIA [id number] [place] [address] [place] WBC LM.HPF (Urine sed) [#/Area] /[HPF] Abnormal 0-5 /HPF [facility] Comment on above: Order Comment: Speci men Type: URINE SPECIMENOrdering Facility: [facility] Address: [address] [place] [address] Performed By: #### L [id number] ####[facility] LABCLIA [id number] [place] [address] [place] CNPNon 09-21-2023 CNPN Normal [facility] BMPon 09-17-2023 Anion gap [Moles/Vol] 9 mmol/L Normal 6-16 [facility] Comment on above: Performed By: #### 2 919502, 59370103, 5368753, 9612516, 1237300, 0960826 #### [facility] [address] [place] [address] BUN/Creat Ratio 24 No Units High 10-20 [facility] Comment on above: Performed By: #### 2 936098, 88096752, 4790948, 3107226, 8790699, 1055799 #### [facility] [address] [place] [address] Calcium [Mass/Vol] 9.1 mg/dL Normal 8.9-11.1 [facility] Comment on above: Performed By: #### 2 226028, 19279920, 4242482, 7446379, 3047484, 6653571 #### [facility] [address] [place] [address] Chloride [Moles/Vol] 105 mmol/L Normal 101-111 [facility] Comment on above: Performed By: #### 2 951700, 36721302, 2176723, 9315251, 9236762, 0324437 #### [facility] [address] [place] [address] CO2 [Moles/Vol] 28 mmol/L Normal 21-31 [facility] Comment on above: Performed By: #### 2 045111, 06943415, 8942819, 5834538, 9745279, 1797390 #### [facility] [address] [place] [address] Creatinine [Mass/Vol] 0.7 mg/dL Normal 0.5-1.3 [facility] Comment on above: Performed By: #### 2 491803, 55245165, 1801886, 1028463, 9074244, 4931294 #### [facility] [address] [place] [address] Glucose [Mass/Vol] 83 mg/dL Normal 55-199 [facility] Comment on above: Performed By: #### 2 425998, 80062936, 5183393, 5773964, 7976634, 7873915 #### [facility] [address] [place] [address] Potassium [Moles/Vol] 4.0 mmol/L Normal 3.5-5.3 [facility] Comment on above: Performed By: #### 2 402329, 09812639, 2759698, 0824455, 5301539, 9706796 #### [facility] [address] [place] [address] Sodium [Moles/Vol] 138 mmol/L Normal 135-145 [facility] Comment on above: Performed By: #### 2 145918, 24718831, 0325322, 6367112, 7892569, 0440843 #### [facility] [address] [place] [address] Urea nitrogen [Mass/Vol] 17 mg/dL Normal 5-21 [facility] Comment on above: Performed By: #### 2 151627, 08471989, 1850620, 0974395, 6994979, 0044404 #### [facility] [address] [place] [address] CBC w/ Auto Diffon 4 Basophil Absolute 0.1 E9/L Normal 0.0-0.2 [facility] Comment on above: Performed By: #### 2 450483, 35333268, 2112222, 3288068, 3710836, 1469053 #### [facility] [address] [place] [address] Basophils/100 WBC (Bld) 0.9 % Normal 0.0-2.0 [facility] Comment on above: Performed By: #### 2 963713, 85180766, 2412879, 1380093, 6386202, 8552876 #### [facility] [address] [place] [address] Eos Absolute 0.0 E9/L Normal 0.0-0.5 [facility] Comment on above: Performed By: #### 2 068028, 90513370, 7898650, 5362441, 0302284, 7431167 #### [facility] [address] [place] [address] Eosinophils/100 WBC (Bld) 0.7 % Normal 0.0-8.0 [facility] Comment on above: Performed By: #### 2 967050, 06982655, 8348355, 3882225, 0067418, 4373854 #### [facility] [address] [place] [address] Erythrocyte distribution width (RBC) [Ratio] 14.1 % Normal 10.9-14.2 [facility] Comment on above: Performed By: #### 2 051051, 15859498, 0949665, 3150856, 9833824, 0324908 #### [facility] [address] [place] [address] Hematocrit (Bld) [Volume fraction] 36.0 % Normal 34.0-46.0 [facility] Comment on above: Performed By: #### 2 914776, 52194344, 3815525, 2688659, 2610954, 1510128 #### [facility] [address] [place] [address] Hemoglobin (Bld) [Mass/Vol] 12.2 g/dL Normal 12.0-16.0 [facility] Comment on above: Performed By: #### 2 393318, 75660428, 0554626, 7558902, 3072926, 4449808 #### [facility] [address] [place] [address] Lymph Absolute 2.1 E9/L Normal 1.0-4.0 [facility] Comment on above: Performed By: #### 2 654190, 86920863, 3118875, 4764879, 6637452, 8142795 #### [facility] [address] [place] [address] 89104 Lymphocytes/100 WBC (Bld) 31.6 % Normal 14.0-50.0 [facility] Comment on above: Performed By: #### 2 931038, 66186578, 1840994, 2707405, 5278490, 5515148 #### [facility] [address] [place] [address] MCH (RBC) [Entitic mass] 30.0 pg Normal 27.0-34.0 [facility] Comment on above: Performed By: #### 2 799534, 52987497, 5755036, 3147424, 9462939, 8580246 #### [facility] [address] [place] [address] MCHC (RBC) [Mass/Vol] 34.1 g/dL Normal 31.4-36.0 [facility] Comment on above: Performed By: #### 2 389227, 17698911, 7568891, 6175188, 1572832, 1638937 #### [facility] [address] [place] [address] MCV (RBC) [Entitic vol] 88.0 fL Normal 80.0-100.0 [facility] Comment on above: Performed By: #### 2 369442, 41735562, 2605967, 3418554, 8569479, 1925824 #### [facility] [address] [place] [address] Wayne Absolute 0.6 E9/L Normal 0.2-1.0 [facility] Comment on above: Performed By: #### 2 613623, 18649153, 9522926, 0819071, 4645584, 0520993 #### [facility] [address] [place] [address] Monocytes/100 WBC (Bld) 9.5 % Normal 4.0-14.0 [facility] Comment on above: Performed By: #### 2 014156, 22007471, 8870153, 7141855, 5357264, 7434657 #### [facility] [address] [place] [address] Neutro Absolute 3.8 E9/L Normal 2.0-7.5 [facility] Comment on above: Performed By: #### 2 015529, 84539454, 3812794, 5969479, 2642884, 4042622 #### [facility] [address] [place] [address] Neutro Auto 57.3 % Normal 36.0-75.0 [facility] Comment on above: Performed By: #### 2 093949, 63800024, 0926059, 9199937, 6413676, 0839242 #### [facility] [address] [place] [address] Platelet 186.0 E9/L Normal 150.0-500.0 [facility] Comment on above: Performed By: #### 2 415419, 09529309, 6726516, 8379813, 3427092, 6299469 #### [facility] [address] [place] [address] Platelet mean volume (Bld) [Entitic vol] 8.0 fL Normal 6.4-10.8 [facility] Comment on above: Performed By: #### 2 318578, 25062726, 9421576, 0058740, 4662139, 5601958 #### [facility] [address] [place] [address] RBC 4.1 E12/L Low 4.3-5.9 [facility] Comment on above: Performed By: #### 2 363543, 30567521, 0573756, 5501285, 8655032, 8747570 #### [facility] [address] [place] [address] WBC 6.6 E9/L Normal 4.0-11.0 [facility] Comment on above: Performed By: #### 2 762064, 45318479, 9341288, 3364542, 7594330, 6240493 #### [facility] [address] [place] [address] CHEMISTRYOrdered By: SYSTEM SYSTEM on 09-17-2023 Anion [...] 10 - 20 Remisol Chem CHEMISTRYOrdered By: Karlos ROP User on 09-17-2023 Glucose [Mass/Vol] 79 mg/dL Normal 55 - 99 mg/dL [facility] POC Subsection Comment on above: Result Comment: Neli cain RN/ POC Device SN [id number] 1 Invalid Interpretation Code [facility] POC Subsection POC User ID [id number] 1 Invalid Interpretation Code [facility] POC Subsection POC Username [email or web address] HOLGUIN Invalid Interpretation Code [facility] POC Subsection CNPNon 09-17-2023 CNPN Normal [facility] COAGULATIONOrdered By: Han Frost on 09-17-2023 aPTT Coag (PPP) [Time] 38.2 s High 25.1 - 36.5 second(s) [facility] Auto Coag Comment on above: Interpretive Data: [...] the same coagulation reagent and instrumentation as [facility]. Currently there are no coagulation studies available worldwide for children to 14 days, and no normal ranges. Heparin therapeutic range (represented by Anti-Factor Xa activity of 0.2 - 0.4 U/mL) corresponds to PTT of 56.6 - 109.0 sec. INR Coag (PPP) [Relative time] 1.4 {INR} Invalid Interpretation Code [facility] Auto Coag Comment on above: Interpretive Data: I NR results are specifically intended to assess patients stabilized on long-term Anticoagulation therapy suggested INR s Less Intensive Anticoagulation 2.0 3.0 Conventional Range 3.0 4.5 PT Coag (PPP) [Time] 16.4 s High 9.4 - 1 2.5 second(s) [facility] Auto Coag Comment on above: Interpretive Data: [...] the same coagulation reagent and instrumentation as [facility]. Currently there are no coagulation studies available worldwide for children to 14 days, and no normal ranges. Capillary Glucose POCon Glucose [Mass/Vol] 79 mg/dL Normal 55-99 [facility] Comment on above: Result Comment: Neli cain RN/ Performed By: #### 2 [id number] ####[facility] [address] [place] [address] Consent for Treatmenton Consent for Treatment [id number] .00TIFF Normal [facility] Discharge Instructionson Discharge Instructions [id number]# 1.00TIFF Normal [facility] ED Clinical Summaryon 2023 ED Clinical Summary [place] [id number] ED Clinical Summary Person Information Name: ASYA ASENCIO I [place] Age: 73 Years : 1950 Sex: Female Language: Guinean PCP: Peggy Nazario MD Marital Status: Visit Id: Visit Reason: Chest [...] 09/17/2023 06:16:25 09/17/2023 06:16:25 09/17/2023 06:16:25 ADDRESS: [address] [place] [id number] PHYS DOC NOTES: MEDICAL INFORMATION: Prescriptions Given: [...] Drug Allergy; Heartburn Follow up: With: Address: When: Peggy Nazario [address] [place] [address] Business (1) In 3 days DIAGNOSIS: Acid reflux; Medication reaction Normal [facility] ED Note-Physicianon 09-17-19 ED Note-Physician Basic Information Time Seen: Armen Parveen Michael 09/17/2023 04:58 Chief Complaint states having side [...] and Complexity of Problems Differential Diagnosis: [] [facility] Data External documents reviewed: N/A [...] Information Peggy Nazario In [address] [place] [address] [facility] (1) Additional Instructions: Patient Education Drug Allergy [...] (02/01/2019), C (more content not included)... Normal [facility] Comment on above: Result Comment: Elec [...] vinegar, hot sauces, and barbecue sauce. ? [place] fruit juices and citrus fruits, such as oranges, ronald, and limes. ? Tomato-based foods, such as red sauce, chili, salsa, and pizza with red sauce. ? Fried and fatty foods, such as donuts, nepalese fries, potato chips, and high-fat dressings. ? [...] your health care provider. Medicines ? Take whmt-lkk-aohotmc and prescription medicines only as told by [...] by your health care provider. ? Take zzat-dwr-vvyymjp and prescription medicines only as told by [...] provider. Document Revised: 02/03/2021 Document Reviewed: 02/03/2021 [employer] Patient Education ? 2022 6Wunderkinder. Pharmacology Drug Allergy A drug allergy happens when the body's disease-fighting system (immune system) reacts badly to a medicine. Drug allergies range from mild to severe. A drug allergy is not the same as a medicine side effect, which is a known possible reaction to the drug. A drug allergy is a (more content not included)... Normal [facility] ED Patient Summaryon 024 ED Patient Summary [address] [address] Patient Discharge Instructions Person Information Name: ASYA ASENCIO I Age: 73 Years Arrival Date: 09/17/2023 04:55:16 Discharge Diagnosis: Acid reflux; Medication reaction Primary Care Physician: Peggy Nazario MD Provider Information Primary Provider: Parveen Ayers DO Advanced Wood Setter:None The exam and treatment you received in the Emergency Department were for an urgent problem and are not intended as complete care. It is important that you follow up with a doctor, nurse practitioner, or physician?s field assistant for ongoing care. If your symptoms become [...] Instructions: With: Address: When: Peggy Naz[place] [address] Business (1) In 3 days In the event that this physician does not participate in your insurance network, please consult with your insurance company to find a nearby participating provider. Patient Education Materials: Drug Allergy; Heartburn A MESSAGE TO ALL PATIENTS REGARDING OPIOIDS PRESCRIPTION OPIOIDS: WHAT YOU NEED TO KNOW Prescription opioids can be used to help relieve rleypcvc-oc-xtauvk pain and are often prescribed following a [...] be struggling with addiction, tell your health certified social workers in health care and ask for guidance or call [facility] National Helpline at 0-591-876-KIZF. v Source: [place] Department of Health and (more content not included)... Normal [facility] HEMATOLOGYOrdered By: SYSTEM SYSTEM on 09-17-2023 [...] Normal 80.0 - 100.0 fL Remisol Heme Wayne Absolute 0.6 E9/L Normal 0.2 - 1.0 [...] Remisol Heme Monitor Recordon 09-17-2023 Monitor Record [id number]# 1.00TIFF Normal [facility] PT & PTTon 09-17-2023 aPTT Coag (PPP) [Time] 38.2 second(s) High 25.1-36.5 [facility] Comment on above: Result Comment: Para [...] the same coagulation reagent and instrumentation as [facility]. Currently there are no coagulation studies available worldwide for children to 14 days, and no normal ranges. Heparin therapeutic range (represented by Anti-Factor Xa activity of 0.2 - 0.4 U/mL) corresponds to PTT of 56.6 - 109.0 sec. Performed By: #### 2 771707, 02176874, 2488545, 4477446, 1667563, 7432639 #### [facility] [address] [place] [address] INR Coag (PPP) [Relative time] 1.4 {INR} Invalid Interpretation Code [facility] Comment on above: Result Comment: INR results are specifically intended to assess patients stabilized on long-term Anticoagulation therapy suggested INR?s ?Less Intensive Anticoagulation? 2.0 ? 3.0 Conventional Range 3.0 ? 4.5 Performed By: #### 2 094171, 67535721, 0066149, 9101649, 0575481, 3515422 #### [facility] [address] [place] [address] PT Coag (PPP) [Time] 16.4 second(s) High 9.4-12.5 [facility] Comment on above: Result Comment: 15 [...] the same coagulation reagent and instrumentation as [facility]. Currently there are no coagulation studies available worldwide for children to 14 days, and no normal ranges. Performed By: #### 2 918205, 27132762, 9700390, 4892751, 6387864, 7910872 #### [facility] [address] [place] [address] Troponin 0 Hr.on 09-17-2023 Troponin 11.70 pg/mL Normal 10.10-27.10 [facility] Comment on above: Result Comment: The 95% CI (Confidence Interval) PPV (Positive Predictive Value) for myocardial infarction in females is 38 pg/mL, in males 51 pg/mL. The results should be used in conjunction with clinical conditions of myocardial infarction. (Access High Sensitivity Troponin I Instructions For Use, Marlys Pearce, March 2018) Performed By: #### 2 635545, 68160439, 9999355, 9284690, 5685856, 6454251 #### [facility] [address] [place] [address] XR Chest Single Viewon 09-17 XR Chest [...] mGy = na DAP = na Normal [facility] eGFRon 09-17-2023 eGFR 90 mL/min/1.73 m2 Normal >=59 [facility] Comment on above: Order Comment: Order added by Discern Expert. Performed By: #### 2 776248, 18214204, 6261338, 3588362, 5184009, 4966049 #### [facility] [address] [place] [address] BMPon 09-12-2023 Anion gap [Moles/Vol] 12 mmol/L Normal 6-16 [facility] Comment on above: Performed By: #### 2 977398, 81901948, 1014308, 4574960, 3835272, 7858507 #### [facility] [address] [place] [address] BUN/Creat Ratio 27 No Units High 10-20 [facility] Comment on above: Performed By: #### 2 381099, 00939900, 0993967, 2055674, 5417924, 0962499 #### [facility] [address] [place] [address] Calcium [Mass/Vol] 9.5 mg/dL Normal 8.9-11.1 [facility] Comment on above: Performed By: #### 2 076120, 60009409, 0395503, 7749705, 7470408, 6743065 #### [facility] [address] [place] [address] Chloride [Moles/Vol] 101 mmol/L Normal 101-111 [facility] Comment on above: Performed By: #### 2 532147, 87372873, 8780262, 2063551, 0117911, 6751446 #### [facility] [address] [place] [address] CO2 [Moles/Vol] 27 mmol/L Normal 21-31 [facility] Comment on above: Performed By: #### 2 981760, 38516338, 3271954, 0624995, 2190130, 1452863 #### [facility] [address] [place] [address] Creatinine [Mass/Vol] 0.9 mg/dL Normal 0.5-1.3 [facility] Comment on above: Performed By: #### 2 981958, 81217093, 9715170, 2437642, 5154585, 9274919 #### [facility] [address] [place] [address] Glucose [Mass/Vol] 87 mg/dL Normal 55-199 [facility] Comment on above: Performed By: #### 2 527499, 97995831, 6599694, 5830315, 4980026, 8788601 #### [facility] [address] [place] [address] Potassium [Moles/Vol] 4.9 mmol/L Normal 3.5-5.3 [facility] Comment on above: Performed By: #### 2 072862, 69989282, 5644597, 1239939, 6682351, 7394745 #### [facility] [address] [place] [address] Sodium [Moles/Vol] 135 mmol/L Normal 135-145 [facility] Comment on above: Performed By: #### 2 671108, 41283290, 0682127, 0093339, 9256627, 9517514 #### [facility] [address] [place] [address] Urea nitrogen [Mass/Vol] 24 mg/dL High 5-21 [facility] Comment on above: Performed By: #### 2 959885, 15628931, 9886222, 9380554, 0755866, 3030825 #### [facility] [address] [place] [address] CBC w/ Auto Diffon 4 Basophil Absolute 0.1 E9/L Normal 0.0-0.2 [facility] Comment on above: Performed By: #### 2 005581, 55772685, 7580785, 0039262, 0349697, 3015998 #### [facility] [address] [place] [address] Basophils/100 WBC (Bld) 1.1 % Normal 0.0-2.0 [facility] Comment on above: Performed By: #### 2 595424, 40401012, 8180386, 0805324, 5441635, 1921051 #### [facility] [address] [place] [address] Eos Absolute 0.1 E9/L Normal 0.0-0.5 [facility] Comment on above: Performed By: #### 2 332387, 73735247, 0589624, 9827663, 5238565, 8727709 #### [facility] [address] [place] [address] Eosinophils/100 WBC (Bld) 1.2 % Normal 0.0-8.0 [facility] Comment on above: Performed By: #### 2 221676, 17310969, 1881738, 3176584, 6899674, 6074474 #### [facility] [address] [place] [address] Erythrocyte distribution width (RBC) [Ratio] 13.7 % Normal 10.9-14.2 [facility] Comment on above: Performed By: #### 2 727284, 39818047, 3036854, 0555911, 5048766, 0237369 #### [facility] [address] [place] [address] Hematocrit (Bld) [Volume fraction] 41.0 % Normal 34.0-46.0 [facility] Comment on above: Performed By: #### 2 354945, 14818600, 3764907, 6584244, 5568031, 9210699 #### [facility] [address] [place] [address] Hemoglobin (Bld) [Mass/Vol] 13.4 g/dL Normal 12.0-16.0 [facility] Comment on above: Performed By: #### 2 183937, 75579286, 0151607, 9872999, 6687558, 6581353 #### [facility] [address] [place] [address] Lymph Absolute 1.9 E9/L Normal 1.0-4.0 [facility] Comment on above: Performed By: #### 2 568928, 59480811, 3029236, 6729546, 6452154, 0303691 #### [facility] [address] [place] [address] Lymphocytes/100 WBC (Bld) 25.9 % Normal 14.0-50.0 [facility] Comment on above: Performed By: #### 2 804427, 32618738, 3065168, 8927479, 3780572, 2792110 #### [facility] [address] [place] [address] MCH (RBC) [Entitic mass] 29.5 pg Normal 27.0-34.0 [facility] Comment on above: Performed By: #### 2 020571, 01981563, 9122183, 9110571, 6107390, 2421109 #### [facility] [address] [place] [address] MCHC (RBC) [Mass/Vol] 32.9 g/dL Normal 31.4-36.0 [facility] Comment on above: Performed By: #### 2 901914, 65885654, 6275691, 2745849, 7370092, 9659405 #### [facility] [address] [place] [address] MCV (RBC) [Entitic vol] 89.6 fL Normal 80.0-100.0 [facility] Comment on above: Performed By: #### 2 025310, 63794879, 1020828, 3664116, 6920051, 5189118 #### [facility] [address] [place] [address] Wayne Absolute 0.6 E9/L Normal 0.2-1.0 [facility] Comment on above: Performed By: #### 2 409190, 98233702, 6634167, 3368826, 8337445, 7507587 #### [facility] [address] [place] [address] Monocytes/100 WBC (Bld) 8.0 % Normal 4.0-14.0 [facility] Comment on above: Performed By: #### 2 909961, 97325052, 2076818, 6980222, 7619333, 7770253 #### [facility] [address] [place] [address] Neutro Absolute 4.7 E9/L Normal 2.0-7.5 [facility] Comment on above: Performed By: #### 2 397889, 02350838, 0384856, 4830195, 6581562, 1235823 #### [facility] [address] [place] [address] Neutro Auto 63.8 % Normal 36.0-75.0 [facility] Comment on above: Performed By: #### 2 990059, 62901799, 9570092, 7650333, 3102887, 3686433 #### [facility] [address] [place] [address] Platelet 214.0 E9/L Normal 150.0-500.0 [facility] Comment on above: Performed By: #### 2 910417, 29701951, 3229005, 5438909, 2524083, 8600307 #### [facility] [address] [place] [address] Platelet mean volume (Bld) [Entitic vol] 8.2 fL Normal 6.4-10.8 [facility] Comment on above: Performed By: #### 2 273931, 00931138, 6054827, 8692963, 5214712, 2640553 #### [facility] [address] [place] [address] RBC 4.6 E12/L Normal 4.3-5.9 [facility] Comment on above: Performed By: #### 2 443879, 55892831, 4972354, 4604655, 0392880, 2495626 #### [facility] [address] [place] [address] WBC 7.4 E9/L Normal 4.0-11.0 [facility] Comment on above: Performed By: #### 2 099380, 14488324, 1227430, 5990002, 2821919, 0222839 #### [facility] [address] [place] [address] CHEMISTRYOrdered By: Maryan Frost on 09-12-2023 U [...] Sensitivity Troponin I Instructions For Use, Marlys Pearce, March 2018) Urea nitrogen [Mass/Vol] 24 mg/dL High 5 - 21 mg/dL Remisol Chem Urea nitrogen/Creatinine [Mass ratio] 27 mg/mg High 10 - 20 Remisol Chem CHEMISTRYOrdered By: Karlos PELAYO User on 09-12-2023 Glucose [Mass/Vol] 96 mg/dL Normal 55 - 99 mg/dL [facility] POC Subsection Comment on above: Result Comment: Neli cain RN/ POC Device SN [id number] Invalid Interpretation Code [facility] POC Subsection POC User ID [id number] 1 Invalid Interpretation Code [facility] POC Subsection POC Username CORINNE COTA Invalid Interpretation Code [facility] POC Subsection CNPNon 09-12-2023 CNPN Normal [facility] CT Head or Brain w/o Contras ton [...] Technologist: JON Technical Comments Contrast: None Normal [facility] Capillary Glucose POCon 08-16 Glucose [Mass/Vol] 96 mg/dL Normal 55-99 [facility] Comment on above: Result Comment: Neli cain RN/MD Performed By: #### 2 862275, 84785670, 3533009, 7012269, 8250871, 5143919 #### [facility] [address] [place] [address] Consent for Treatmenton 08-16 Consent for Treatment [id number] .00TIFF Normal [facility] Discharge Instructionson Discharge Instructions [id number] .00TIFF Normal [facility] ED Clinical Summaryon 2023 ED Clinical Summary [address] [address] ED Clinical Summary Person Information Name: ASYA ASENCIO I Patricia/[facility] Age: 73 Years : 1950 Sex: Female Language: Guinean PCP: Peggy Nazario MD Marital Status: Visit Id: Visit Reason: Allergic [...] 09/12/2023 06:47:40 09/12/2023 06:47:40 09/12/2023 06:47:40 ADDRESS: [address] [place] [address] [address] [facility] [id number] PHYS DOC NOTES: MEDICAL INFORMATION: Prescriptions Given: [...] up: With: Address: When: Peggy Nazario [address] [place] [address] Business (1) In 3 days DIAGNOSIS: Acid reflux; Tremor Normal [facility] ED Note-Physicianon 09-12-19 ED Note-Physician Basic Information Time Seen: Parveen Ayers DO 09/12/2023 04:07 Chief Complaint states had recent [...] and Complexity of Problems Differential Diagnosis: [] [facility] Data External documents reviewed: N/A [...] Information Peggy Nazario In 3 days [address] [place] [address]- Business (1) Additional Instructions: Patient Education Tremor Gastroesophageal [...] urethral stri (more content not included)... Normal [facility] Comment on above: Result Comment: Elec [...] vinegar, hot sauces, and barbecue sauce. ? [place] fruit juices and citrus fruits, such as oranges, ronald, and limes. ? Tomato-based foods, such as red sauce, chili, salsa, and pizza with red sauce. ? Fried and fatty foods, such as donuts, nepalese fries, potato chips, and high-fat dressings. ? [...] safe eugene (more content not included)... Normal [facility] ED Patient Summaryon 024 ED Patient Summary [place] [id number] Patient Discharge Instructions Person Information Name: ASYA ASENCIO I Age: 73 Years Arrival Date: 09/12/2023 04:02:15 Discharge Diagnosis: Acid reflux; Tremor Primary Care Physician: Peggy Nazario MD Provider Information Primary Provider: Parveen Ayers DO Advanced Wood Setter:None The exam and treatment you received in the Emergency Department were for an urgent problem and are not intended as complete care. It is important that you follow up with a doctor, nurse practitioner, or physician?s field assistant for ongoing care. If your symptoms become [...] Follow-up Instructions: With: Address: When: Peggy Nazario [address] [place] [address] Business (1) In 3 days In the event that this physician does not participate in your insurance network, please consult with your insurance company to find a nearby participating provider. Patient Education Materials: Tremor; Gastroesophageal Reflux Disease, Adult A MESSAGE TO ALL PATIENTS REGARDING OPIOIDS PRESCRIPTION OPIOIDS: WHAT YOU NEED TO KNOW Prescription opioids can be used to help relieve sslhkqzm-jq-vdikut pain and are often prescribed following a [...] be struggling with addiction, tell your health certified social workers in health care and ask for guidance or call [facility] National Helpline at 3-011-272-HMXD. a Source: [employer] Department of (more content not included)... Normal [facility] HEMATOLOGYOrdered By: SYSTEM SYSTEM on 09-12-2023 [...] Normal 80.0 - 100.0 fL Remisol Heme Wayne Absolute 0.6 E9/L Normal 0.2 - 1.0 [...] Remisol Heme Monitor Recordon 09-12-2023 Monitor Record [id number] 1 [id number]# 1.00TIFF Normal [facility] Troponin 0 Hr.on 09-12-2023 Troponin 12.70 pg/mL Normal 10.10-27.10 [facility] Comment on above: Result Comment: The 95% CI (Confidence Interval) PPV (Positive Predictive Value) for myocardial infarction in females is 38 pg/mL, in males 51 pg/mL. The results should be used in conjunction with clinical conditions of myocardial infarction. (Access High Sensitivity Troponin I Instructions For Use, Marlys Pearce, March 2018) Performed By: #### 2 223112, [id number], 8115160, 5163479, 6547621, 2488685 #### [facility] [address] [place] [address] U Drug Screenon 09-12-2023 U Amph Scr Negative Invalid Interpretation Code [facility] Comment on above: Performed By: #### 2 749435, 71669724, 7130680, 5658642, 5412752, 7157197 #### [facility] [address] [place] [address] U Hayley Scr Negative Invalid Interpretation Code [facility] Comment on above: Performed By: #### 2 633510, 33238272, 4636171, 1944181, 0635231, 2670852 #### [facility] [address] [place] [address] U Benzodia Scr Negative Invalid Interpretation Code [facility] Comment on above: Performed By: #### 2 445735, 66391002, 8439962, 6967082, 7561195, 6081382 #### [facility] [address] [place] [address] U Cannab Scr Negative Invalid Interpretation Code [facility] Comment on above: Performed By: #### 2 735656, 98120559, 4089570, 2611200, 3404686, 8044998 #### [facility] [address] [place] [address] U Cocaine Scr Negative Invalid Interpretation Code [facility] Comment on above: Performed By: #### 2 078415, 24342697, 6868322, 9056521, 3787605, 1362697 #### [facility] [address] [place] [address] U Opiate Scr Negative Invalid Interpretation Code [facility] Comment on above: Performed By: #### 2 472294, 61907565, 0737652, 6091156, 2324870, 8850224 #### [facility] [address] [place] [address] U PCP Scr Negative Invalid Interpretation Code [facility] Comment on above: Performed By: #### 2 364479, 60446261, 9700892, 8319158, 9918623, 3771576 #### [facility] [address] [place] [address] UA With Cult Reflexon 2023 Bilirubin Ql (U) Negative Normal Negative [facility] Comment on above: Performed By: #### 1 0539685 #### [facility] [address] [place] [address] Clarity (U) CLEAR Normal Clear [facility] Comment on above: Performed By: #### 1 6411867 #### [facility] [address] [place] [address] Color (U) STRAW Invalid Interpretation Code [facility] Comment on above: Performed By: #### 1 4284046 #### [facility] [address] [place] [address] Epithelial cells.squamous LM.HPF (Urine sed) [#/Area] 0-2 Normal 0-2 [facility] Comment on above: Performed By: #### 1 3431430 #### [facility] [address] [place] [address] Glucose Test strip (U) [Mass/Vol] Negative Normal Negative [facility] Comment on above: Performed By: #### 1 1631177 #### [facility] [address] [place] [address] Hemoglobin Ql (U) 1+ Abnormal Negative [facility] Comment on above: Performed By: #### 1 7698505 #### [facility] [address] [place] [address] Ketones (U) [Mass/Vol] Negative Normal Negative [facility] Comment on above: Performed By: #### 1 9800560 #### [facility] [address] [place] [address] [place].plasma/Lithiu m.RBC (Bld) [Mass ratio] 0-3 Normal 0-3 [facility] Comment on above: Performed By: #### 1 7967178 #### [facility] [address] [place] [address] Nitrite Ql (U) Negative Normal Negative [facility] Comment on above: Performed By: #### 1 1878656 #### [facility] [address] [place] [address] pH (U) 7.0 [pH] Invalid Interpretation Code 5.0-9.0 [facility] Comment on above: Performed By: #### 1 9084777 #### [facility] [address] [place] [address] Protein (U) [Mass/Vol] Negative Normal Negative [facility] Comment on above: Performed By: #### 1 5020390 #### [facility] [address] [place] [address] Specific gravity (U) [Rel density] <=1.005 Invalid Interpretation Code 1.005-1.030 [facility] Comment on above: Performed By: #### 1 5377571 #### [facility] [address] [place] [address] Type of Urine collection method Clean Catch Normal [facility] Comment on above: Performed By: #### 1 2905769 #### [facility] [address] [place] [address] Urobilinogen Qn (U) 0.2 {Judith'U}/dL Normal 0.0-1.0 [facility] Comment on above: Performed By: #### 1 1835865 #### [facility] [address] [place] [address] WBC Auto Ql (U) TRACE Abnormal Negative [facility] Comment on above: Performed By: #### 1 5008249 #### [facility] [address] [place] [address] WBC LM.HPF (Urine sed) [#/Area] 0-5 Normal 0-5 [facility] Comment on above: Performed By: #### 1 4679278 #### [facility] [address] [place] [address] URINALYSISOrdered By: Ethan Frost on 09-12-2023 Bilirubin Ql (U) Negative (09/12/23 4:53 AM) Normal Negative [facility] UA Auto SS Clarity (U) Clear (09/12/23 4:53 AM) Normal Clear [facility] UA Auto SS Color (U) STRAW Invalid [...] AM) Normal Negative [facility] UA Auto SS [place].plasma/Lithiu m.RBC (Bld) [Mass ratio] 0-3 /HPF Normal [...] [facility] UA Auto SS Urobilinogen Qn (U) 0.6217923 {Judith'U}/dL Normal 0.0 - 1.0 EU/dL [facility] [...] mGy = na DAP = na Normal [facility] eGFRon 09-12-2023 eGFR 66 mL/min/1.73 m2 Normal >=59 [facility] Comment on above: Order Comment: Order Added by Discern Expert. Performed By: #### 2 331979, 42827665, 5934897, 5562230, 6187625, 3282991 #### [facility] [address] [place] [address] CNPNon 09-07-2023 CNPN Normal [facility] CNPNon 09-01-2023 CNPN Normal [facility] CBC panel Auto (Bld)on 08-31 Erythrocyte distribution width (RBC) [Ratio] 12.9 % Normal 11.5-15.0 [facility] Comment on above: Order Comment: Speci men Type: BLOOD SPECIMENOrdering Facility: [facility] Address: [address] [place] [address] Performed By: #### 5 8410-2 ####[facility] LABCLIA [id number] [place] [address] [place] Hematocrit (Bld) [Volume fraction] 36.1 % Normal 36.0-46.0 [facility] Comment on above: Order Comment: Speci men Type: BLOOD SPECIMENOrdering Facility: [facility] Address: [address] [place] [address] Performed By: #### 5 8410-2 ####[facility] LABCLIA [id number] [place] [address] [place] Hemoglobin (Bld) [Mass/Vol] 11.9 g/dL Normal 11.5-15.5 [facility] Comment on above: Order Comment: Speci men Type: BLOOD SPECIMENOrdering Facility: [facility] Address: [address] [place] [address] Performed By: #### 5 8410-2 ####[facility] LABIA [id number] [place] [address] [place] MCH (RBC) [Entitic mass] 29.5 pg Normal 26.0-34.0 [facility] Comment on above: Order Comment: Speci men Type: BLOOD SPECIMENOrdering Facility: [facility] Address: [address] [place] [address] Performed By: #### 5 8410-2 ####[facility] LABIA [id number] [place] [address] [place] MCHC (RBC) [Mass/Vol] 33.0 g/dL Normal 30.5-36.0 [facility] Comment on above: Order Comment: Speci men Type: BLOOD SPECIMENOrdering Facility: [facility] Address: [address] [place] [address] Performed By: #### 5 8410-2 ####[facility] LABIA [id number] [place] [address] [place] MCV (RBC) [Entitic vol] 89.4 fL Normal 80.0-100.0 [facility] Comment on above: Order Comment: Speci men Type: BLOOD SPECIMENOrdering Facility: [facility] Address: [address] [place] [address] Performed By: #### 5 8410-2 ####[facility] LABIA [id number] [place] [address] [place] Nucleated RBC (Bld) [#/Vol] 10*3/uL Normal <0.01 [facility] Comment on above: Order Comment: Speci men Type: BLOOD SPECIMENOrdering Facility: [facility] Address: [address] [place] [address] Performed By: #### 5 8410-2 ####[facility] LABCLIA [id number] [place] [address] [place] Platelet mean volume (Bld) [Entitic vol] 10.2 fL Normal 9.0-12.7 [facility] Comment on above: Order Comment: Speci men Type: BLOOD SPECIMENOrdering Facility: [facility] Address: [address] [place] [address] Performed By: #### 5 8410-2 ####[facility] LABCLIA [id number] [place] [address] [place] Platelets (Bld) [#/Vol] 175 10*3/uL Normal 150-400 [facility] Comment on above: Order Comment: Speci men Type: BLOOD SPECIMENOrdering Facility: [facility] Address: [address] [place] [address] Performed By: #### 5 8410-2 ####[facility] LABCLIA [id number] [place] [address] [place] RBC (Bld) [#/Vol] 4.04 10*6/uL Normal 3.90-5.20 [facility] Comment on above: Order Comment: Speci men Type: BLOOD SPECIMENOrdering Facility: [facility] Address: [address] [place] [address] Performed By: #### 5 8410-2 ####[facility] LABCLIA [id number] [place] [address] [place] WBC (Bld) [#/Vol] 6.11 10*3/uL Normal 3.70-11.00 [facility] Comment on above: Order Comment: Speci men Type: BLOOD SPECIMENOrdering Facility: [facility] Address: [address] [place] [address] Performed By: #### 5 8410-2 ####[facility] LABCLIA [id number] [address] [address] [place] CNDSon 08-31-2023 CNDS Normal [facility] Comprehensive metabolic 2000 panelon 08-31-2023 Albumin [Mass/Vol] 3.5 g/dL Low 3.9-4.9 [facility] Comment on above: Order Comment: Speci men Type: BLOOD SPECIMENOrdering Facility: [facility] Address: [address] [place] [address] Performed By: #### 1 9123-9, 88624-4 ####[facility] LABCLIA [id number] [place] [address] [place] ALP [Catalytic activity/Vol] 52 U/L Normal 34-123 [facility] Comment on above: Order Comment: Speci men Type: BLOOD SPECIMENOrdering Facility: [facility] Address: [address] [place] [address] Performed By: #### 1 9123-9, 54363-1 ####[facility] LABIA [id number] [place] [address] [place] ALT [Catalytic activity/Vol] 24 U/L Normal 7-38 [facility] Comment on above: Order Comment: Speci men Type: BLOOD SPECIMENOrdering Facility: [facility] Address: [address] [place] [address] Performed By: #### 1 9123-9, 10887-1 ####[facility] LABIA [id number] [place] [address] [place] Anion gap [Moles/Vol] 9 mmol/L Normal 9-18 [facility] Comment on above: Order Comment: Speci men Type: BLOOD SPECIMENOrdering Facility: [facility] Address: [address] [place] [address] Performed By: #### 1 9123-9, 46657-5 ####[facility] LABCLIA [id number] [place] [address] [place] AST [Catalytic activity/Vol] 20 U/L Normal 13-35 [facility] Comment on above: Order Comment: Speci men Type: BLOOD SPECIMENOrdering Facility: [facility] Address: [address] [place] [address] Performed By: #### 1 9123-9, ####[facility] LABCLIA [id number] [place] [address] [place] Bilirubin [Mass/Vol] 0.5 mg/dL Normal 0.2-1.3 [facility] Comment on above: Order Comment: Speci men Type: BLOOD SPECIMENOrdering Facility: [facility] Address: [address] [place] [address] Performed By: #### 1 9123-9, ####[facility] LABCLIA [id number] [place] [address] [place] Calcium [Mass/Vol] 9.2 mg/dL Normal 8.5-10.2 [facility] Comment on above: Order Comment: Speci men Type: BLOOD SPECIMENOrdering Facility: [facility] Address: [address] [place] [address] Performed By: #### 1 23-9, ####[facility] LABCLIA [id number] [place] [address] [place] Chloride [Moles/Vol] 103 mmol/L Normal 97-105 [facility] Comment on above: Order Comment: Speci men Type: BLOOD SPECIMENOrdering Facility: [facility] Address: [address] [place] [address] Performed By: #### 1 23-9, ####[facility] LABCLIA [id number] [place] [address] [place] CO2 [Moles/Vol] 25 mmol/L Normal 22-30 [facility] Comment on above: Order Comment: Speci men Type: BLOOD SPECIMENOrdering Facility: [facility] Address: [place] [address] Performed By: #### 1 9123-9, 26770-4 ####[facility] LABIA [id number] [place] [address] [place] Creatinine [Mass/Vol] 0.90 mg/dL Normal 0.58-0.96 [facility] Comment on above: Order Comment: Speci men Type: BLOOD SPECIMENOrdering Facility: [facility] Address: [address] [place] [address] Performed By: #### 1 9123-9, ####[facility] [id number] [place] [address] [place] Creatinine and Glomerular filtration rate.predicted panel (S/P/Bld) 67 mL/min/1.73m??? Normal >=60 [facility] Comment on above: Order Comment: Nichole men Type: BLOOD SPECIMENOrdering Facility: [facility] Address: [address] [place] [address] Result Comment: Shelley mated Glomerular Filtration Rate [...] actual GFR. Performed By: #### 1 9123-9, ####[facility] LABIA [id number] [place] [address] [place] Glucose [Mass/Vol] 85 mg/dL Normal 74-99 [facility] Comment on above: Order Comment: Speci men Type: BLOOD SPECIMENOrdering Facility: [facility] Address: [address] [place] [address] Result Comment: The [place] [employer] (ADA) provides guidance for cutoff [...] Standards of Medical Care in Diabetes 2016, [place] [employer]. Diabetes Care. 2016.39(Suppl 1). Performed By: #### 1 23-9, ####[facility] LABCLIA [id number] [place] [address] [place] Potassium [Moles/Vol] 4.3 mmol/L Normal 3.7-5.1 [facility] Comment on above: Order Comment: Speci men Type: BLOOD SPECIMENOrdering Facility: [facility] Address: [address] [place] [address] Performed By: #### 1 239, ####[facility] LABCLIA [id number] [place] [address] [place] Protein [Mass/Vol] 5.9 g/dL Low 6.3-8.0 [facility] Comment on above: Order Comment: Césari men Type: BLOOD SPECIMENOrdering Facility: [facility] Address: [address] [place] [address] Performed By: #### 1 23, ####[facility] LABCLIA [id number] [place] [address] [place] Sodium [Moles/Vol] 137 mmol/L Normal 136-144 [facility] Comment on above: Order Comment: Césari men Type: BLOOD SPECIMENOrdering Facility: [facility] Address: [address] [place] [address] Performed By: #### 1 91239, ####[facility] LABCLIA [id number] [place] [address] [place] Urea nitrogen [Mass/Vol] 16 mg/dL Normal 7-21 [facility] Comment on above: Order Comment: Speci men Type: BLOOD SPECIMENOrdering Facility: [facility] Address: [place] [address] Performed By: #### 1 9123-9, 15431-6 ####[facility] LABCLIA [id number] [place] [address] [place] Magnesium SerPl-mCncon 08-31 Magnesium [Mass/Vol] 2.2 mg/dL Normal 1.7-2.3 [facility] Comment on above: Order Comment: Speci men Type: BLOOD SPECIMENOrdering Facility: [facility] Address: [place] [address] Performed By: #### 1 9123-9, 47716-5 ####[facility] LABCLIA [id number] [place] [address] [place] NUTRITIONon 08-31-2023 NUTRITION Normal [facility] PT EDon 08-31-2023 PT ED Normal [facility] PT ED Normal [facility] US FEMALE PELVIS TRANSABD LT Don 08-31-2023 FEMALE PELVIS TRANSABD LTD Normal [facility] US FEMALE PELVIS TRANSVAGon 08-31-2023 US FEMALE PELVIS TRANSVAG Normal [facility] CBC panel Auto (Bld)on 08-30 Erythrocyte distribution width (RBC) [Ratio] 13.1 % Normal 11.5-15.0 [facility] Comment on above: Order Comment: Speci men Type: BLOOD SPECIMENOrdering Facility: [facility] Address: [place] [address] Performed By: #### 5 8410-2 ####[facility] LABCLIA [id number] [place] [address] [place] Hematocrit (Bld) [Volume fraction] 38.9 % Normal 36.0-46.0 [facility] Comment on above: Order Comment: Speci men Type: BLOOD SPECIMENOrdering Facility: [facility] Address: [address] [place] [address] Performed By: #### 5 8410-2 ####[facility] [id number] [place] [address] [place] Hemoglobin (Bld) [Mass/Vol] 12.6 g/dL Normal 11.5-15.5 [facility] Comment on above: Order Comment: Speci men Type: BLOOD SPECIMENOrdering Facility: [facility] Address: [address] [place] [address] Performed By: #### 5 8410-2 ####[facility] [id number] [place] [address] [place] MCH (RBC) [Entitic mass] 29.9 pg Normal 26.0-34.0 [facility] Comment on above: Order Comment: Speci men Type: BLOOD SPECIMENOrdering Facility: [facility] Address: [address] [place] [address] Performed By: #### 5 8410-2 ####[facility] [id number] [place] [address] [place] MCHC (RBC) [Mass/Vol] 32.4 g/dL Normal 30.5-36.0 [facility] Comment on above: Order Comment: Speci men Type: BLOOD SPECIMENOrdering Facility: [facility] Address: [address] [place] [address] Performed By: #### 5 8410-2 ####[facility] [id number] [place] [address] [place] MCV (RBC) [Entitic vol] 92.2 fL Normal 80.0-100.0 [facility] Comment on above: Order Comment: Speci men Type: BLOOD SPECIMENOrdering Facility: [facility] Address: [address] [place] [address] Performed By: #### 5 8410-2 ####[facility] LABCLIA [id number] [place] [address] [place] Nucleated RBC (Bld) [#/Vol] 10*3/uL Normal <0.01 [facility] Comment on above: Order Comment: Speci men Type: BLOOD SPECIMENOrdering Facility: [facility] Address: [address] [place] [address] Performed By: #### 5 8410-2 ####[facility] LABIA [id number] [place] [address] [place] Platelet mean volume (Bld) [Entitic vol] 10.4 fL Normal 9.0-12.7 [facility] Comment on above: Order Comment: Speci men Type: BLOOD SPECIMENOrdering Facility: [facility] Address: [address] [place] [address] Performed By: #### 5 8410-2 ####[facility] LABIA [id number] [place] [address] [place] Platelets (Bld) [#/Vol] 185 10*3/uL Normal 150-400 [facility] Comment on above: Order Comment: Speci men Type: BLOOD SPECIMENOrdering Facility: [facility] Address: [address] [place] [address] Performed By: #### 5 8410-2 ####[facility] LABIA [id number] [place] [address] [place] RBC (Bld) [#/Vol] 4.22 10*6/uL Normal 3.90-5.20 [facility] Comment on above: Order Comment: Speci men Type: BLOOD SPECIMENOrdering Facility: [facility] Address: [address] [place] [address] Performed By: #### 5 8410-2 ####[facility] LABIA [id number] [place] [address] [place] WBC (Bld) [#/Vol] 6.51 10*3/uL Normal 3.70-11.00 [facility] Comment on above: Order Comment: Speci men Type: BLOOD SPECIMENOrdering Facility: [facility] Address: [address] [place] [address] Performed By: #### 5 8410-2 ####[facility] LABCLIA [id number] [place] [address] [place] CNCOon 08-30-2023 CNCO Letter Text Normal [facility] CONSULT PROGon 08-30-2023 CONSULT PROG Normal [facility] Comprehensive metabolic 2000 panelon 08-30-2023 Albumin [Mass/Vol] 3.9 g/dL Normal 3.9-4.9 [facility] Comment on above: Order Comment: Speci men Type: BLOOD SPECIMENOrdering Facility: [facility] Address: [address] [place] [address] Performed By: #### 1 9123-9, 09439-8 ####[facility] LABCLIA [id number] [place] [address] [place] ALP [Catalytic activity/Vol] 65 U/L Normal 34-123 [facility] Comment on above: Order Comment: Speci men Type: BLOOD SPECIMENOrdering Facility: [facility] Address: [address] [place] [address] Performed By: #### 1 9123-9, 53097-4 ####[facility] LABCLIA [id number] [place] [address] [place] ALT [Catalytic activity/Vol] 28 U/L Normal 7-38 [facility] Comment on above: Order Comment: Speci men Type: BLOOD SPECIMENOrdering Facility: [facility] Address: [address] [place] [address] Performed By: #### 1 9123-9, 15511-5 ####[facility] LABCLIA [id number] [place] [address] [place] Anion gap [Moles/Vol] 9 mmol/L Normal 9-18 [facility] Comment on above: Order Comment: Speci men Type: BLOOD SPECIMENOrdering Facility: [facility] Address: [address] [place] [address] Performed By: #### 1 9123-9, ####[facility] LABCLIA [id number] [place] [address] [place] AST [Catalytic activity/Vol] 24 U/L Normal 13-35 [facility] Comment on above: Order Comment: Speci men Type: BLOOD SPECIMENOrdering Facility: [facility] Address: [address] [place] [address] Performed By: #### 1 9123-9, ####[facility] LABCLIA [id number] [place] [address] [place] Bilirubin [Mass/Vol] 0.5 mg/dL Normal 0.2-1.3 [facility] Comment on above: Order Comment: Speci men Type: BLOOD SPECIMENOrdering Facility: [facility] Address: [address] [place] [address] Performed By: #### 1 23-9, ####[facility] LABCLIA [id number] [place] [address] [place] Calcium [Mass/Vol] 9.3 mg/dL Normal 8.5-10.2 [facility] Comment on above: Order Comment: Speci men Type: BLOOD SPECIMENOrdering Facility: [facility] Address: [address] [place] [address] Performed By: #### 1 9123-9, ####[facility] LABCLIA [id number] [place] [address] [place] Chloride [Moles/Vol] 103 mmol/L Normal 97-105 [facility] Comment on above: Order Comment: Speci men Type: BLOOD SPECIMENOrdering Facility: [facility] Address: [address] [place] [address] Performed By: #### 1 9123-9, 25416-1 ####[facility] LABCLIA [id number] [place] [address] [place] CO2 [Moles/Vol] 25 mmol/L Normal 22-30 [facility] Comment on above: Order Comment: Speci men Type: BLOOD SPECIMENOrdering Facility: [facility] Address: [address] [place] [address] Performed By: #### 1 9123-9, ####[facility] LABIA [id number] [place] [address] [place] Creatinine [Mass/Vol] 1.11 mg/dL High 0.58-0.96 [facility] Comment on above: Order Comment: Speci men Type: BLOOD SPECIMENOrdering Facility: [facility] Address: [address] [place] [address] Performed By: #### 1 9123-9, ####[facility] LABIA [id number] [place] [address] [place] Creatinine and Glomerular filtration rate.predicted panel (S/P/Bld) 52 mL/min/1.73m??? Low >=60 [facility] Comment on above: Order Comment: Speci men Type: BLOOD SPECIMENOrdering Facility: [facility] Address: [address] [place] [address] Result Comment: Shelley mated Glomerular Filtration Rate [...] actual GFR. Performed By: #### 1 9123-9, 89727-5 ####[facility] LABCLIA [id number] [place] [address] [place] Glucose [Mass/Vol] 149 mg/dL High 74-99 [facility] Comment on above: Order Comment: Speci men Type: BLOOD SPECIMENOrdering Facility: [facility] Address: [address] [place] [address] Result Comment: The [place] Diabetes [employer] (ADA) provides guidance for cutoff [...] Standards of Medical Care in Diabetes 2016, [place] [employer]. Diabetes Care. 2016.39(Suppl 1). Performed By: #### 1 9123-9, ####[facility] LABCLIA [id number] [place] [address] [place] Potassium [Moles/Vol] 5.0 mmol/L Normal 3.7-5.1 [facility] Comment on above: Order Comment: Speci men Type: BLOOD SPECIMENOrdering Facility: [facility] Address: [address] [place] [address] Performed By: #### 1 9123-9, ####[facility] LABCLIA [id number] [place] [address] [place] Protein [Mass/Vol] 6.3 g/dL Normal 6.3-8.0 [facility] Comment on above: Order Comment: Speci men Type: BLOOD SPECIMENOrdering Facility: [facility] Address: [address] [place] [address] Performed By: #### 1 9123-9, ####[facility] LABCLIA [id number] [place] [id number] [place] Sodium [Moles/Vol] 137 mmol/L Normal 136-144 [facility] Comment on above: Order Comment: Speci men Type: BLOOD SPECIMENOrdering Facility: [facility] Address: [address] [place] [address] Performed By: #### 1 9123-9, 01696-6 ####[facility] LABCLIA [id number] [place] [address] [place] Urea nitrogen [Mass/Vol] 19 mg/dL Normal 7-21 [facility] Comment on above: Order Comment: Speci men Type: BLOOD SPECIMENOrdering Facility: [facility] Address: [address] [place] [address] Performed By: #### 1 9123-9, 87824-0 ####[facility] LABCLIA [id number] [place] [address] [place] Magnesium SerPl-mCncon 08-30 Magnesium [Mass/Vol] 2.2 mg/dL Normal 1.7-2.3 [facility] Comment on above: Order Comment: Speci men Type: BLOOD SPECIMENOrdering Facility: [facility] Address: [address] [place] [address] Performed By: #### 1 9123-9, 38648-7 ####[facility] LABCLIA [id number] [place] [id number] [place] NURSING PROGon 08-30-2023 NURSING PROG Normal [facility] NUTRITIONon 08-30-2023 NUTRITION Normal [facility] CBC panel Auto (Bld)on 08-29 Erythrocyte distribution width (RBC) [Ratio] 13.1 % Normal 11.5-15.0 [facility] Comment on above: Order Comment: Speci men Type: BLOOD SPECIMENOrdering Facility: [facility] Address: [address] [place] [address] Performed By: #### 5 8410-2 ####[facility] LABCLIA [id number] [place] [address] [place] Hematocrit (Bld) [Volume fraction] 39.4 % Normal 36.0-46.0 [facility] Comment on above: Order Comment: Speci men Type: BLOOD SPECIMENOrdering Facility: [facility] Address: [address] [place] [address] Performed By: #### 5 8410-2 ####[facility] LABIA [id number] [place] [address] [place] Hemoglobin (Bld) [Mass/Vol] 13.1 g/dL Normal 11.5-15.5 [facility] Comment on above: Order Comment: Speci men Type: BLOOD SPECIMENOrdering Facility: [facility] Address: [address] [place] [address] Performed By: #### 5 8410-2 ####[facility] LABIA [id number] [place] [address] [place] MCH (RBC) [Entitic mass] 30.0 pg Normal 26.0-34.0 [facility] Comment on above: Order Comment: Speci men Type: BLOOD SPECIMENOrdering Facility: [facility] Address: [address] [place] [address] Performed By: #### 5 8410-2 ####[facility] LABIA [id number] [place] [address] [place] MCHC (RBC) [Mass/Vol] 33.2 g/dL Normal 30.5-36.0 [facility] Comment on above: Order Comment: Speci men Type: BLOOD SPECIMENOrdering Facility: [facility] Address: [address] [place] [address] Performed By: #### 5 8410-2 ####[facility] LABIA [id number] [place] [address] [place] MCV (RBC) [Entitic vol] 90.4 fL Normal 80.0-100.0 [facility] Comment on above: Order Comment: Speci men Type: BLOOD SPECIMENOrdering Facility: [facility] Address: [address] [place] [address] Performed By: #### 5 8410-2 ####[facility] LABCLIA [id number] [place] [address] [place] Nucleated RBC (Bld) [#/Vol] 10*3/uL Normal <0.01 [facility] Comment on above: Order Comment: Speci men Type: BLOOD SPECIMENOrdering Facility: [facility] Address: [address] [place] [address] Performed By: #### 5 8410-2 ####[facility] LABIA [id number] [place] [address] [place] Platelet mean volume (Bld) [Entitic vol] 10.5 fL Normal 9.0-12.7 [facility] Comment on above: Order Comment: Speci men Type: BLOOD SPECIMENOrdering Facility: [facility] Address: [address] [place] [address] Performed By: #### 5 8410-2 ####[facility] LABIA [id number] [place] [address] [place] Platelets (Bld) [#/Vol] 192 10*3/uL Normal 150-400 [facility] Comment on above: Order Comment: Speci men Type: BLOOD SPECIMENOrdering Facility: [facility] Address: [address] [place] [address] Performed By: #### 5 8410-2 ####[facility] LABIA [id number] [place] [address] [place] RBC (Bld) [#/Vol] 4.36 10*6/uL Normal 3.90-5.20 [facility] Comment on above: Order Comment: Speci men Type: BLOOD SPECIMENOrdering Facility: [facility] Address: [address] [place] [address] Performed By: #### 5 8410-2 ####[facility] LABCLIA [id number] [address] [address] [place] WBC (Bld) [#/Vol] 8.00 10*3/uL Normal 3.70-11.00 [facility] Comment on above: Order Comment: Speci men Type: BLOOD SPECIMENOrdering Facility: [facility] Address: [address] [place] [address] Performed By: #### 5 8410-2 ####[facility] LABCLIA [id number] [place] [address] [place] CT FLANK WO IVCONon 08-29-19 CT FLANK WO IVCON Invalid Interpretation Code [facility] metabolic 2000 panelon 08-29-2023 Albumin [Mass/Vol] 3.9 g/dL Normal 3.9-4.9 [facility] Comment on above: Order Comment: Speci men Type: BLOOD SPECIMENOrdering Facility: [facility] Address: [address] [place] [address] Performed By: #### 2 4323-8, ####[facility] LABCLIA [id number] [place] [address] [place] ALP [Catalytic activity/Vol] 58 U/L Normal 34-123 [facility] Comment on above: Order Comment: Speci men Type: BLOOD SPECIMENOrdering Facility: [facility] Address: [address] [place] [address] Performed By: #### 2 4323-8, ####[facility] LABIA [id number] [place] [id number] [place] ALT [Catalytic activity/Vol] 33 U/L Normal 7-38 [facility] Comment on above: Order Comment: Speci men Type: BLOOD SPECIMENOrdering Facility: [facility] Address: [address] [place] [address] Performed By: #### 2 4323-03, ####[facility] LABCLIA [id number] [place] [id number] [place] Anion gap [Moles/Vol] 10 mmol/L Normal 9-18 [facility] Comment on above: Order Comment: Speci men Type: BLOOD SPECIMENOrdering Facility: [facility] Address: [address] [place] [address] Performed By: #### 2 4323-03, ####[facility] LABCLIA [id number] [place] [address] [place] AST [Catalytic activity/Vol] 25 U/L Normal 13-35 [facility] Comment on above: Order Comment: Speci men Type: BLOOD SPECIMENOrdering Facility: [facility] Address: [address] [place] [address] Performed By: #### 2 4323-03, ####[facility] LABCLIA [id number] [place] [address] [place] Bilirubin [Mass/Vol] 0.7 mg/dL Normal 0.2-1.3 [facility] Comment on above: Order Comment: Speci men Type: BLOOD SPECIMENOrdering Facility: [facility] Address: [address] [place] [address] Performed By: #### 2 4323-03, ####[facility] LABCLIA [id number] [place] [address] [place] Calcium [Mass/Vol] 9.0 mg/dL Normal 8.5-10.2 [facility] Comment on above: Order Comment: Speci men Type: BLOOD SPECIMENOrdering Facility: [facility] Address: [address] [place] [address] Performed By: #### 2 4323-03, ####[facility] LABCLIA [id number] [place] [address] [place] Chloride [Moles/Vol] 101 mmol/L Normal 97-105 [facility] Comment on above: Order Comment: Speci men Type: BLOOD SPECIMENOrdering Facility: [facility] Address: [address] [place] [address] Performed By: #### 2 4323-8, ####[facility] LABCLIA [id number] [place] [address] [place] CO2 [Moles/Vol] 25 mmol/L Normal 22-30 [facility] Comment on above: Order Comment: Speci men Type: BLOOD SPECIMENOrdering Facility: [facility] Address: [address] [place] [address] Performed By: #### 2 4323-8, ####[facility] LABCLIA [id number] [place] [address] [place] Creatinine [Mass/Vol] 0.87 mg/dL Normal 0.58-0.96 [facility] Comment on above: Order Comment: Speci men Type: BLOOD SPECIMENOrdering Facility: [facility] Address: [address] [place] [address] Performed By: #### 2 4323-8, ####[facility] LABCLIA [id number] [place] [address] [place] Creatinine and Glomerular filtration rate.predicted panel (S/P/Bld) 70 mL/min/1.73m??? Normal >=60 [facility] Comment on above: Order Comment: Speci men Type: BLOOD SPECIMENOrdering Facility: [facility] Address: [address] [place] [address] Result Comment: Shelley mated Glomerular Filtration Rate [...] actual GFR. Performed By: #### 2 4323-8, ####[facility] LABCLIA [id number] [address] [address] [place] Glucose [Mass/Vol] 85 mg/dL Normal 74-99 [facility] Comment on above: Order Comment: Speci men Type: BLOOD SPECIMENOrdering Facility: [facility] Address: [address] [place] [address] Result Comment: The [place] Diabetes [employer] (ADA) provides guidance for cutoff [...] Standards of Medical Care in Diabetes 2016, [place] [employer]. Diabetes Care. 2016.39(Suppl 1). Performed By: #### 2 4323-8, ####[facility] LABIA [id number] [place] [id number] [place] Potassium [Moles/Vol] 4.7 mmol/L Normal 3.7-5.1 [facility] Comment on above: Order Comment: Speci men Type: BLOOD SPECIMENOrdering Facility: [facility] Address: [address] [place] [address] Performed By: #### 2 4323-8, ####[facility] LABIA [id number] [place] [id number] [place] Protein [Mass/Vol] 6.3 g/dL Normal 6.3-8.0 [facility] Comment on above: Order Comment: Speci men Type: BLOOD SPECIMENOrdering Facility: [facility] Address: [address] [place] [address] Performed By: #### 2 4323-8, ####[facility] LABCLIA [id number] [place] [id number] [place] Sodium [Moles/Vol] 136 mmol/L Normal 136-144 [facility] Comment on above: Order Comment: Speci men Type: BLOOD SPECIMENOrdering Facility: [facility] Address: [address] [place] [address] Performed By: #### 2 43238, ####[facility] LABCLIA [id number] [place] [address] [place] Urea nitrogen [Mass/Vol] 15 mg/dL Normal 7-21 [facility] Comment on above: Order Comment: Speci men Type: BLOOD SPECIMENOrdering Facility: [facility] Address: [address] [place] [address] Performed By: #### 2 4328, ####[facility] LABCLIA [id number] [place] [address] [place] DIGOXIN/LANOXINon 08-29-2023 Digoxin [Mass/Vol] 1.0 ng/mL Normal 0.6-1.2 [facility] Comment on above: Order Comment: Speci men Type: BLOOD SPECIMENOrdering Facility: [facility] Address: [address] [place] [address] Result Comment: Prov ided therapeutic concentrations are based on the 2008 ESC Guidelines for the Diagnosis and Treatment of Acute and Chronic Heart Failure.Reference ranges and high/low indicator flags are provided as general guidelines only. The treating physician must determine appropriate target levels/dosing based on the specific clinical situation. Performed By: #### D IG ####[facility] LABCLIA [id number] [place] [address] [place] Magnesium SerPl-mCncon 08-29 Magnesium [Mass/Vol] 2.2 mg/dL Normal 1.7-2.3 [facility] Comment on above: Order Comment: Speci men Type: BLOOD SPECIMENOrdering Facility: [facility] Address: [address] [place] [address] Performed By: #### 2 4323-8, 84509-0 ####[facility] LABCLIA [id number] [place] [address] [place] NUTRITIONon 08-29-2023 NUTRITION Normal [facility] THYROID PEROXIDASE ANTIBODY BLOODon 08-29-2023 TPO Ab Qn [IU]/mL Normal <5.6 [facility] Comment on above: Order Comment: Speci men Type: BLOOD SPECIMENOrdering Facility: [facility] Address: [address] [place] [address] Result Comment: Thyr oid Peroxidase Antibody test is used as an aid in diagnosis of autoimmune thyroid disease. Clinical correlation is required. Performed By: #### M ICRO ####[facility] LABCLIA [id number] [place] [address] [place] ANES POSTPROC EVALon 024 ANES POSTPROC EVAL Normal [facility] ANES PRE-OPon 08-28-2023 ANES PRE-OP Normal [facility] CASE MANAGEMon 08-28-2023 CASE MANAGEM Normal [facility] CBC panel Auto (Bld)on 08-28 Erythrocyte distribution width (RBC) [Ratio] 13.1 % Normal 11.5-15.0 [facility] Comment on above: Order Comment: Speci men Type: BLOOD SPECIMENOrdering Facility: [facility] Address: [address] [place] [address] Performed By: #### 5 8410-2 ####[facility] LABCLIA [id number] [place] [address] [place] Hematocrit (Bld) [Volume fraction] 37.8 % Normal 36.0-46.0 [facility] Comment on above: Order Comment: Speci men Type: BLOOD SPECIMENOrdering Facility: [facility] Address: [address] [place] [address] Performed By: #### 5 8410-2 ####[facility] LABCLIA [id number] [place] [address] [place] Hemoglobin (Bld) [Mass/Vol] 12.3 g/dL Normal 11.5-15.5 [facility] Comment on above: Order Comment: Speci men Type: BLOOD SPECIMENOrdering Facility: [facility] Address: [address] [place] [address] Performed By: #### 5 8410-2 ####[facility] LABCLIA [id number] [place] [address] [place] MCH (RBC) [Entitic mass] 29.5 pg Normal 26.0-34.0 [facility] Comment on above: Order Comment: Speci men Type: BLOOD SPECIMENOrdering Facility: [facility] Address: [address] [place] [address] Performed By: #### 5 8410-2 ####[facility] LABIA [id number] [place] [address] [place] MCHC (RBC) [Mass/Vol] 32.5 g/dL Normal 30.5-36.0 [facility] Comment on above: Order Comment: Speci men Type: BLOOD SPECIMENOrdering Facility: [facility] Address: [address] [place] [address] Performed By: #### 5 8410-2 ####[facility] LABIA [id number] [place] [address] [place] MCV (RBC) [Entitic vol] 90.6 fL Normal 80.0-100.0 [facility] Comment on above: Order Comment: Speci men Type: BLOOD SPECIMENOrdering Facility: [facility] Address: [address] [place] [address] Performed By: #### 5 8410-2 ####[facility] LABIA [id number] [place] [address] [place] Nucleated RBC (Bld) [#/Vol] 10*3/uL Normal <0.01 [facility] Comment on above: Order Comment: Speci men Type: BLOOD SPECIMENOrdering Facility: [facility] Address: [address] [place] [address] Performed By: #### 5 8410-2 ####[facility] LABCLIA [id number] [place] [address] [place] Platelet mean volume (Bld) [Entitic vol] 10.4 fL Normal 9.0-12.7 [facility] Comment on above: Order Comment: Speci men Type: BLOOD SPECIMENOrdering Facility: [facility] Address: [address] [place] [address] Performed By: #### 5 8410-2 ####[facility] LABCLIA [id number] [place] [address] [place] Platelets (Bld) [#/Vol] 180 10*3/uL Normal 150-400 [facility] Comment on above: Order Comment: Speci men Type: BLOOD SPECIMENOrdering Facility: [facility] Address: [address] [place] [address] Performed By: #### 5 8410-2 ####[facility] LABCLIA [id number] [place] [address] [place] RBC (Bld) [#/Vol] 4.17 10*6/uL Normal 3.90-5.20 [facility] Comment on above: Order Comment: Speci men Type: BLOOD SPECIMENOrdering Facility: [facility] Address: [address] [place] [address] Performed By: #### 5 8410-2 ####[facility] LABCLIA [id number] [place] [address] [place] WBC (Bld) [#/Vol] 6.22 10*3/uL Normal 3.70-11.00 [facility] Comment on above: Order Comment: Speci men Type: BLOOD SPECIMENOrdering Facility: [facility] Address: [address] [place] [address] Performed By: #### 5 8410-2 ####[facility] LABCLIA [id number] [place] [id number] [place] CNOVon 08-28-2023 CNOV Normal [facility] CONSULTon 08-28-2023 CONSULT Normal [facility] Comprehensive metabolic 2000 panelon 08-28-2023 Albumin [Mass/Vol] 3.5 g/dL Low 3.9-4.9 [facility] Comment on above: Order Comment: Speci men Type: BLOOD SPECIMENOrdering Facility: [facility] Address: [address] [place] [address] Performed By: #### 2 4323-8, 3023-7 ####[facility] LABCLIA [id number] [place] [address] [place] ALP [Catalytic activity/Vol] 52 U/L Normal 34-123 [facility] Comment on above: Order Comment: Speci men Type: BLOOD SPECIMENOrdering Facility: [facility] Address: [address] [place] [address] Performed By: #### 2 4323-8, 3023-7 ####[facility] LABCLIA [id number] [place] [address] [place] ALT [Catalytic activity/Vol] 31 U/L Normal 7-38 [facility] Comment on above: Order Comment: Speci men Type: BLOOD SPECIMENOrdering Facility: [facility] Address: [address] [place] [address] Performed By: #### 2 4323-8, 3023-7 ####[facility] LABCLIA [id number] [place] [id number] [place] Anion gap [Moles/Vol] 10 mmol/L Normal 9-18 [facility] Comment on above: Order Comment: Speci men Type: BLOOD SPECIMENOrdering Facility: [facility] Address: [address] [place] [address] Performed By: #### 2 4323-8, 7 ####[facility] LABCLIA [id number] [place] [address] [place] AST [Catalytic activity/Vol] 26 U/L Normal 13-35 [facility] Comment on above: Order Comment: Speci men Type: BLOOD SPECIMENOrdering Facility: [facility] Address: [address] [place] [address] Performed By: #### 2 4323-8, 3024-02 ####[facility] LABCLIA [id number] [place] [address] [place] Bilirubin [Mass/Vol] 0.5 mg/dL Normal 0.2-1.3 [facility] Comment on above: Order Comment: Speci men Type: BLOOD SPECIMENOrdering Facility: [facility] Address: [address] [place] [address] Performed By: #### 2 4323-8, 3024-02 ####[facility] LABCLIA [id number] [place] [address] [place] Calcium [Mass/Vol] 9.5 mg/dL Normal 8.5-10.2 [facility] Comment on above: Order Comment: Speci men Type: BLOOD SPECIMENOrdering Facility: [facility] Address: [address] [place] [address] Performed By: #### 2 4323-8, 7 ####[facility] LABIA [id number] [place] [address] [place] Chloride [Moles/Vol] 106 mmol/L High 97-105 [facility] Comment on above: Order Comment: Speci men Type: BLOOD SPECIMENOrdering Facility: [facility] Address: [address] [place] [address] Performed By: #### 2 4323-8, 3024-02 ####[facility] LABCLIA [id number] [place] [address] [place] CO2 [Moles/Vol] 24 mmol/L Normal 22-30 [facility] Comment on above: Order Comment: Speci men Type: BLOOD SPECIMENOrdering Facility: [facility] Address: [address] [place] [address] Performed By: #### 2 4323-8, 7 ####[facility] LABIA [id number] [place] [address] [place] Creatinine [Mass/Vol] 0.75 mg/dL Normal 0.58-0.96 [facility] Comment on above: Order Comment: Speci men Type: BLOOD SPECIMENOrdering Facility: [facility] Address: [address] [place] [address] Performed By: #### 2 4323-8, 7 ####[facility] [id number] [place] [address] [place] Creatinine and Glomerular filtration rate.predicted panel (S/P/Bld) 83 mL/min/1.73m??? Normal >=60 [facility] Comment on above: Order Comment: Speci men Type: BLOOD SPECIMENOrdering Facility: [facility] Address: [address] [place] [address] Result Comment: Shelley mated Glomerular Filtration Rate [...] actual GFR. Performed By: #### 2 4323-8, 7 ####[facility] LABCLIA [id number] [place] [id number] [place] Glucose [Mass/Vol] 88 mg/dL Normal 74-99 [facility] Comment on above: Order Comment: Speci men Type: BLOOD SPECIMENOrdering Facility: [facility] Address: [address] [place] [address] Result Comment: The [place] [employer] (ADA) provides guidance for cutoff [...] Standards of Medical Care in Diabetes 2016, [place] [employer]. Diabetes Care. 2016.39(Suppl 1). Performed By: #### 2 4323-8, 3024-02 ####[facility] LABCLIA [id number] [place] [address] [place] Potassium [Moles/Vol] 4.6 mmol/L Normal 3.7-5.1 [facility] Comment on above: Order Comment: Nichole becerra Type: BLOOD SPECIMENOrdering Facility: [facility] Address: [address] [place] [address] Performed By: #### 2 4323-8, 3024-02 ####[facility] LABCLIA [id number] [place] [address] [place] Protein [Mass/Vol] 5.9 g/dL Low 6.3-8.0 [facility] Comment on above: Order Comment: Nichole becerra Type: BLOOD SPECIMENOrdering Facility: [facility] Address: [address] [place] [address] Performed By: #### 2 4323-8, 3024-02 ####[facility] LABCLIA [id number] [place] [id number] [place] Sodium [Moles/Vol] 140 mmol/L Normal 136-144 [facility] Comment on above: Order Comment: Speci men Type: BLOOD SPECIMENOrdering Facility: [facility] Address: [address] [place] [address] Performed By: #### 2 4323-8, 7 ####[facility] LABCLIA [id number] [place] [address] [place] Urea nitrogen [Mass/Vol] 13 mg/dL Normal 7-21 [facility] Comment on above: Order Comment: Speci men Type: BLOOD SPECIMENOrdering Facility: [facility] Address: [address] [place] [address] Performed By: #### 2 4323-8, 3024-02 ####[facility] LABCLIA [id number] [place] [address] [place] [id number] 08-28-2023 ECG01 Normal [facility] ECHO TRANSESOPHAGEALon 08-[address] [facility] NURSING PROGon 08-28-2023 NURSING PROG Normal [facility] PT EDon 08-28-2023 PT ED Normal [facility] PT ED Normal [facility] T4 Free SerPl-mCncon 024 Free T4 [Mass/Vol] 1.1 ng/dL Normal 0.9-1.7 [facility] Comment on above: Order Comment: Speci men Type: BLOOD SPECIMENOrdering Facility: [facility] Address: [address] [place] [address] Performed By: #### 2 4323-8, 3024-02 ####[facility] LABCLIA [id number] [place] [address] [place] CBC panel Auto (Bld)on 08-27 Erythrocyte distribution width (RBC) [Ratio] 12.8 % Normal 11.5-15.0 [facility] Comment on above: Order Comment: Speci men Type: BLOOD SPECIMENOrdering Facility: [facility] Address: [address] [place] [address] Performed By: #### 5 8410-2 ####[facility] LABCLIA [id number] [place] [address] [place] Hematocrit (Bld) [Volume fraction] 38.9 % Normal 36.0-46.0 [facility] Comment on above: Order Comment: Speci men Type: BLOOD SPECIMENOrdering Facility: [facility] Address: [address] [place] [address] Performed By: #### 5 8410-2 ####[facility] LABIA [id number] [place] [address] [place] Hemoglobin (Bld) [Mass/Vol] 12.7 g/dL Normal 11.5-15.5 [facility] Comment on above: Order Comment: Speci men Type: BLOOD SPECIMENOrdering Facility: [facility] Address: [address] [place] [address] Performed By: #### 5 8410-2 ####[facility] LABIA [id number] [place] [address] [place] MCH (RBC) [Entitic mass] 29.4 pg Normal 26.0-34.0 [facility] Comment on above: Order Comment: Speci men Type: BLOOD SPECIMENOrdering Facility: [facility] Address: [address] [place] [address] Performed By: #### 5 8410-2 ####[facility] LABIA [id number] [place] [address] [place] MCHC (RBC) [Mass/Vol] 32.6 g/dL Normal 30.5-36.0 [facility] Comment on above: Order Comment: Speci men Type: BLOOD SPECIMENOrdering Facility: [facility] Address: [address] [place] [address] Performed By: #### 5 8410-2 ####[facility] LABIA [id number] [place] [address] [place] MCV (RBC) [Entitic vol] 90.0 fL Normal 80.0-100.0 [facility] Comment on above: Order Comment: Speci men Type: BLOOD SPECIMENOrdering Facility: [facility] Address: [address] [place] [address] Performed By: #### 5 8410-2 ####[facility] LABIA [id number] [place] [address] [place] Nucleated RBC (Bld) [#/Vol] 10*3/uL Normal <0.01 [facility] Comment on above: Order Comment: Speci men Type: BLOOD SPECIMENOrdering Facility: [facility] Address: [address] [place] [address] Performed By: #### 5 8410-2 ####[facility] LABIA [id number] [place] [address] [place] Platelet mean volume (Bld) [Entitic vol] 10.4 fL Normal 9.0-12.7 [facility] Comment on above: Order Comment: Speci men Type: BLOOD SPECIMENOrdering Facility: [facility] Address: [address] [place] [address] Performed By: #### 5 8410-2 ####[facility] LABIA [id number] [place] [address] [place] Platelets (Bld) [#/Vol] 143 10*3/uL Low 150-400 [facility] Comment on above: Order Comment: Speci men Type: BLOOD SPECIMENOrdering Facility: [facility] Address: [address] [place] [address] Performed By: #### 5 8410-2 ####[facility] LABIA [id number] [place] [address] [place] RBC (Bld) [#/Vol] 4.32 10*6/uL Normal 3.90-5.20 [facility] Comment on above: Order Comment: Speci men Type: BLOOD SPECIMENOrdering Facility: [facility] Address: [address] [place] [address] Performed By: #### 5 8410-2 ####[facility] LABCLIA [id number] [place] [address] [place] WBC (Bld) [#/Vol] 5.61 10*3/uL Normal 3.70-11.00 [facility] Comment on above: Order Comment: Speci men Type: BLOOD SPECIMENOrdering Facility: [facility] Address: [address] [place] [address] Performed By: #### 5 8410-2 ####[facility] LABCLIA [id number] [place] [address] [place] Comprehensive metabolic 2000 panelon 08-27-2023 Albumin [Mass/Vol] 3.6 g/dL Low 3.9-4.9 [facility] Comment on above: Order Comment: Speci men Type: BLOOD SPECIMENOrdering Facility: [facility] Address: [address] [place] [address] Performed By: #### 2 4323-8, 6-3 ####[facility] LABCLIA [id number] [place] [address] [place] ALP [Catalytic activity/Vol] 59 U/L Normal 34-123 [facility] Comment on above: Order Comment: Speci men Type: BLOOD SPECIMENOrdering Facility: [facility] Address: [address] [place] [address] Performed By: #### 2 4323-8, 6-3 ####[facility] LABCLIA [id number] [place] [id number] [place] ALT [Catalytic activity/Vol] 29 U/L Normal 7-38 [facility] Comment on above: Order Comment: Speci men Type: BLOOD SPECIMENOrdering Facility: [facility] Address: [address] [place] [address] Performed By: #### 2 4323-8, 6-3 ####[facility] LABCLIA [id number] [place] [address] [place] Anion gap [Moles/Vol] 8 mmol/L Low 9-18 [facility] Comment on above: Order Comment: Speci men Type: BLOOD SPECIMENOrdering Facility: [facility] Address: [address] [place] [address] Performed By: #### 2 4323-8, 3016-3 ####[facility] LABCLIA [id number] [place] [address] [place] AST [Catalytic activity/Vol] 27 U/L Normal 13-35 [facility] Comment on above: Order Comment: Speci men Type: BLOOD SPECIMENOrdering Facility: [facility] Address: [address] [place] [address] Performed By: #### 2 4323-8, 6-3 ####[facility] LABCLIA [id number] [place] [address] [place] Bilirubin [Mass/Vol] 0.5 mg/dL Normal 0.2-1.3 [facility] Comment on above: Order Comment: Speci men Type: BLOOD SPECIMENOrdering Facility: [facility] Address: [address] [place] [address] Performed By: #### 2 4323-8, 6-3 ####[facility] LABCLIA [id number] [place] [address] [place] Calcium [Mass/Vol] 9.1 mg/dL Normal 8.5-10.2 [facility] Comment on above: Order Comment: Speci men Type: BLOOD SPECIMENOrdering Facility: [facility] Address: [address] [place] [address] Performed By: #### 2 4323-8, 3016-3 ####[facility] LABCLIA [id number] [place] [id number] [place] Chloride [Moles/Vol] 105 mmol/L Normal 97-105 [facility] Comment on above: Order Comment: Speci men Type: BLOOD SPECIMENOrdering Facility: [facility] Address: [address] [place] [address] Performed By: #### 2 4323-8, 3015-3 ####[facility] LABCLIA [id number] [address] [address] [place] CO2 [Moles/Vol] 27 mmol/L Normal 22-30 [facility] Comment on above: Order Comment: Speci men Type: BLOOD SPECIMENOrdering Facility: [facility] Address: [address] [place] [address] Performed By: #### 2 4323-8, 3 ####[facility] LABCLIA [id number] [place] [address] [place] Creatinine [Mass/Vol] 0.72 mg/dL Normal 0.58-0.96 [facility] Comment on above: Order Comment: Speci men Type: BLOOD SPECIMENOrdering Facility: [facility] Address: [address] [place] [address] Performed By: #### 2 4323-8, 3 ####[facility] LABIA [id number] [place] [address] [place] Creatinine and Glomerular filtration rate.predicted panel (S/P/Bld) 87 mL/min/1.73m??? Normal >=60 [facility] Comment on above: Order Comment: Speci men Type: BLOOD SPECIMENOrdering Facility: [facility] Address: [address] [place] [address] Result Comment: Shelley mated Glomerular Filtration Rate [...] reflect actual GFR. Performed By: #### 2 4328, 3 ####[facility] LABCLIA [id number] [place] [address] [place] Glucose [Mass/Vol] 92 mg/dL Normal 74-99 [facility] Comment on above: Order Comment: Speci men Type: BLOOD SPECIMENOrdering Facility: [facility] Address: [address] [place] [address] Result Comment: The [place] [employer] (ADA) provides guidance for cutoff [...] Standards of Medical Care in Diabetes 2016, [place] [employer]. Diabetes Care. 2016.39(Suppl 1). Performed By: #### 2 4323-8, 3 ####[facility] LABIA [id number] [place] [address] [place] Potassium [Moles/Vol] 4.7 mmol/L Normal 3.7-5.1 [facility] Comment on above: Order Comment: Speci men Type: BLOOD SPECIMENOrdering Facility: [facility] Address: [address] [place] [address] Performed By: #### 2 4323-8, 3 ####[facility] LABIA [id number] [place] [address] [place] Protein [Mass/Vol] 5.8 g/dL Low 6.3-8.0 [facility] Comment on above: Order Comment: Speci men Type: BLOOD SPECIMENOrdering Facility: [facility] Address: [address] [place] [address] Performed By: #### 2 4323-8, 3016-3 ####[facility] LABCLIA [id number] [place] [address] [place] Sodium [Moles/Vol] 140 mmol/L Normal 136-144 [facility] Comment on above: Order Comment: Speci men Type: BLOOD SPECIMENOrdering Facility: [facility] Address: [address] [place] [address] Performed By: #### 2 4323-8, 6-3 ####[facility] LABCLIA [id number] [place] [address] [place] Urea nitrogen [Mass/Vol] 15 mg/dL Normal 7-21 [facility] Comment on above: Order Comment: Speci men Type: BLOOD SPECIMENOrdering Facility: [facility] Address: [address] [place] [address] Performed By: #### 2 4323-8, 6-3 ####[facility] LABIA [id number] [place] [address] [place] TSH SerPl-aCncon 08-27-2023 TSH Qn 9.850 m[IU]/L High 0.270-4.200 [facility] Comment on above: Order Comment: Speci men Type: BLOOD SPECIMENOrdering Facility: [facility] Address: [address] [place] [address] Performed By: #### 2 4323-8, 6-3 ####[facility] LABIA [id number] [place] [id number] [place] Bacteria Ur Culton Bacteria identified Cx Nom (U) Abnormal [facility] Comment on above: Performed By: #### 6 30-4 ####[facility] LABIA [id number] [place] [id number] [place] CBC panel Auto (Bld)on 08-26 Erythrocyte distribution width (RBC) [Ratio] 13.1 % Normal 11.5-15.0 [facility] Comment on above: Order Comment: Speci men Type: BLOOD SPECIMENOrdering Facility: [facility] Address: [address] [place] [address] Performed By: #### 5 8410-2 ####[facility] LABIA [id number] [place] [address] [place] Hematocrit (Bld) [Volume fraction] 38.5 % Normal 36.0-46.0 [facility] Comment on above: Order Comment: Speci men Type: BLOOD SPECIMENOrdering Facility: [facility] Address: [address] [place] [address] Performed By: #### 5 8410-2 ####[facility] LABIA [id number] [place] [address] [place] Hemoglobin (Bld) [Mass/Vol] 12.8 g/dL Normal 11.5-15.5 [facility] Comment on above: Order Comment: Speci men Type: BLOOD SPECIMENOrdering Facility: [facility] Address: [address] [place] [address] Performed By: #### 5 8410-2 ####[facility] LABIA [id number] [place] [address] [place] MCH (RBC) [Entitic mass] 30.0 pg Normal 26.0-34.0 [facility] Comment on above: Order Comment: Speci men Type: BLOOD SPECIMENOrdering Facility: [facility] Address: [address] [place] [address] Performed By: #### 5 8410-2 ####[facility] LABIA [id number] [place] [address] [place] MCHC (RBC) [Mass/Vol] 33.2 g/dL Normal 30.5-36.0 [facility] Comment on above: Order Comment: Speci men Type: BLOOD SPECIMENOrdering Facility: [facility] Address: [address] [place] [address] Performed By: #### 5 8410-2 ####[facility] LABIA [id number] [place] [address] [place] MCV (RBC) [Entitic vol] 90.4 fL Normal 80.0-100.0 [facility] Comment on above: Order Comment: Speci men Type: BLOOD SPECIMENOrdering Facility: [facility] Address: [address] [place] [address] Performed By: #### 5 8410-2 ####[facility] LABIA [id number] [place] [address] [place] Nucleated RBC (Bld) [#/Vol] 10*3/uL Normal <0.01 [facility] Comment on above: Order Comment: Speci men Type: BLOOD SPECIMENOrdering Facility: [facility] Address: [address] [place] [address] Performed By: #### 5 8410-2 ####[facility] LABIA [id number] [place] [address] [place] Platelet mean volume (Bld) [Entitic vol] 10.6 fL Normal 9.0-12.7 [facility] Comment on above: Order Comment: Speci men Type: BLOOD SPECIMENOrdering Facility: [facility] Address: [address] [place] [address] Performed By: #### 5 8410-2 ####[facility] LABIA [id number] [place] [address] [place] Platelets (Bld) [#/Vol] 168 10*3/uL Normal 150-400 [facility] Comment on above: Order Comment: Speci men Type: BLOOD SPECIMENOrdering Facility: [facility] Address: [address] [place] [address] Performed By: #### 5 8410-2 ####[facility] LABIA [id number] [place] [address] [place] RBC (Bld) [#/Vol] 4.26 10*6/uL Normal 3.90-5.20 [facility] Comment on above: Order Comment: Speci men Type: BLOOD SPECIMENOrdering Facility: [facility] Address: [address] [place] [address] Performed By: #### 5 8410-2 ####[facility] LABCLIA [id number] [place] [address] [place] WBC (Bld) [#/Vol] 7.27 10*3/uL Normal 3.70-11.00 [facility] Comment on above: Order Comment: Speci men Type: BLOOD SPECIMENOrdering Facility: [facility] Address: [address] [place] [address] Performed By: #### 5 8410-2 ####[facility] LABCLIA [id number] [place] [address] [place] CONSULTon 08-26-2023 CONSULT Normal [facility] Comprehensive metabolic 2000 panelon 08-26-2023 Albumin [Mass/Vol] 3.5 g/dL Low 3.9-4.9 [facility] Comment on above: Order Comment: Speci men Type: BLOOD SPECIMENOrdering Facility: [facility] Address: [address] [place] [address] Performed By: #### 2 4323-8 ####[facility] LABCLIA [id number] [place] [address] [place] ALP [Catalytic activity/Vol] 60 U/L Normal 34-123 [facility] Comment on above: Order Comment: Speci men Type: BLOOD SPECIMENOrdering Facility: [facility] Address: [address] [place] [address] Performed By: #### 2 4323-8 ####[facility] LABCLIA [id number] [place] [address] [place] ALT [Catalytic activity/Vol] 25 U/L Normal 7-38 [facility] Comment on above: Order Comment: Speci men Type: BLOOD SPECIMENOrdering Facility: [facility] Address: [address] [place] [address] Performed By: #### 2 4323-8 ####[facility] LABCLIA [id number] [place] [address] [place] Anion gap [Moles/Vol] 10 mmol/L Normal 9-18 [facility] Comment on above: Order Comment: Speci men Type: BLOOD SPECIMENOrdering Facility: [facility] Address: [address] [place] [address] Performed By: #### 2 4323-8 ####[facility] LABCLIA [id number] [place] [address] [place] AST [Catalytic activity/Vol] 22 U/L Normal 13-35 [facility] Comment on above: Order Comment: Speci men Type: BLOOD SPECIMENOrdering Facility: [facility] Address: [address] [place] [address] Performed By: #### 2 4323-8 ####[facility] LABCLIA [id number] [place] [address] [place] Bilirubin [Mass/Vol] 0.4 mg/dL Normal 0.2-1.3 [facility] Comment on above: Order Comment: Speci men Type: BLOOD SPECIMENOrdering Facility: [facility] Address: [address] [place] [address] Performed By: #### 2 4323-8 ####[facility] LABCLIA [id number] [place] [address] [place] Calcium [Mass/Vol] 8.9 mg/dL Normal 8.5-10.2 [facility] Comment on above: Order Comment: Speci men Type: BLOOD SPECIMENOrdering Facility: [facility] Address: [address] [place] [address] Performed By: #### 2 4323-8 ####[facility] LABCLIA [id number] [place] [address] [place] Chloride [Moles/Vol] 104 mmol/L Normal 97-105 [facility] Comment on above: Order Comment: Speci men Type: BLOOD SPECIMENOrdering Facility: [facility] Address: [address] [place] [address] Performed By: #### 2 4323-8 ####[facility] LABCLIA [id number] [place] [address] [place] CO2 [Moles/Vol] 26 mmol/L Normal 22-30 [facility] Comment on above: Order Comment: Speci men Type: BLOOD SPECIMENOrdering Facility: [facility] Address: [address] [place] [address] Performed By: #### 2 4323-8 ####[facility] LABCLIA [id number] [place] [address] [place] Creatinine [Mass/Vol] 0.84 mg/dL Normal 0.58-0.96 [facility] Comment on above: Order Comment: Speci men Type: BLOOD SPECIMENOrdering Facility: [facility] Address: [address] [place] [address] Performed By: #### 2 4323-8 ####[facility] LABCLIA [id number] [place] [address] [place] Creatinine and Glomerular filtration rate.predicted panel (S/P/Bld) 73 mL/min/1.73m??? Normal >=60 [facility] Comment on above: Order Comment: Speci men Type: BLOOD SPECIMENOrdering Facility: [facility] Address: [address] [place] [address] Result Comment: Shelley mated Glomerular Filtration Rate [...] actual GFR. Performed By: #### 2 4323-8 ####[facility] LABCLIA [id number] [place] [address] [place] Glucose [Mass/Vol] 93 mg/dL Normal 74-99 [facility] Comment on above: Order Comment: Speci men Type: BLOOD SPECIMENOrdering Facility: [facility] Address: [address] [place] [address] Result Comment: The [place] [employer] (ADA) provides guidance for cutoff [...] Standards of Medical Care in Diabetes 2016, [place] [employer]. Diabetes Care. 2016.39(Suppl 1). Performed By: #### 2 4323-8 ####[facility] LABIA [id number] [place] [address] [place] Potassium [Moles/Vol] 4.4 mmol/L Normal 3.7-5.1 [facility] Comment on above: Order Comment: Speci men Type: BLOOD SPECIMENOrdering Facility: [facility] Address: [address] [place] [address] Performed By: #### 2 4323-8 ####[facility] LABIA [id number] [place] [address] [place] Protein [Mass/Vol] 5.7 g/dL Low 6.3-8.0 [facility] Comment on above: Order Comment: Speci men Type: BLOOD SPECIMENOrdering Facility: [facility] Address: [address] [place] [address] Performed By: #### 2 4323-8 ####[facility] LABCLIA [id number] [place] [address] [place] Sodium [Moles/Vol] 140 mmol/L Normal 136-144 [facility] Comment on above: Order Comment: Speci men Type: BLOOD SPECIMENOrdering Facility: [facility] Address: [address] [place] [address] Performed By: #### 2 4323-8 ####[facility] LABCLIA [id number] [place] [address] [place] Urea nitrogen [Mass/Vol] 19 mg/dL Normal 7-21 [facility] Comment on above: Order Comment: Speci men Type: BLOOD SPECIMENOrdering Facility: [facility] Address: [address] [place] [address] Performed By: #### 2 4323-8 ####[facility] LABCLIA [id number] [place] [address] [place] CASE MGT INIT ASSESon 2023 CASE MGT INIT ASSES Normal [facility] CBC panel Auto (Bld)on 08-25 Erythrocyte distribution width (RBC) [Ratio] 12.9 % Normal 11.5-15.0 [facility] Comment on above: Order Comment: Speci men Type: BLOOD SPECIMENOrdering Facility: [facility] Address: [address] [place] [address] Performed By: #### 5 8410-2 ####[facility] LABCLIA [id number] [place] [address] [place] Hematocrit (Bld) [Volume fraction] 37.8 % Normal 36.0-46.0 [facility] Comment on above: Order Comment: Speci men Type: BLOOD SPECIMENOrdering Facility: [facility] Address: [address] [place] [address] Performed By: #### 5 8410-2 ####[facility] LABCLIA [id number] [place] [address] [place] Hemoglobin (Bld) [Mass/Vol] 12.8 g/dL Normal 11.5-15.5 [facility] Comment on above: Order Comment: Speci men Type: BLOOD SPECIMENOrdering Facility: [facility] Address: [address] [place] [address] Performed By: #### 5 8410-2 ####[facility] LABIA [id number] [place] [address] [place] MCH (RBC) [Entitic mass] 29.9 pg Normal 26.0-34.0 [facility] Comment on above: Order Comment: Speci men Type: BLOOD SPECIMENOrdering Facility: [facility] Address: [address] [place] [address] Performed By: #### 5 8410-2 ####[facility] LABIA [id number] [place] [address] [place] MCHC (RBC) [Mass/Vol] 33.9 g/dL Normal 30.5-36.0 [facility] Comment on above: Order Comment: Speci men Type: BLOOD SPECIMENOrdering Facility: [facility] Address: [address] [place] [address] Performed By: #### 5 8410-2 ####[facility] LABIA [id number] [place] [address] [place] MCV (RBC) [Entitic vol] 88.3 fL Normal 80.0-100.0 [facility] Comment on above: Order Comment: Speci men Type: BLOOD SPECIMENOrdering Facility: [facility] Address: [address] [place] [address] Performed By: #### 5 8410-2 ####[facility] LABCLIA [id number] [place] [address] [place] Nucleated RBC (Bld) [#/Vol] 10*3/uL Normal <0.01 [facility] Comment on above: Order Comment: Speci men Type: BLOOD SPECIMENOrdering Facility: [facility] Address: [address] [place] [address] Performed By: #### 5 8410-2 ####[facility] LABIA [id number] [place] [address] [place] Platelet mean volume (Bld) [Entitic vol] 10.1 fL Normal 9.0-12.7 [facility] Comment on above: Order Comment: Speci men Type: BLOOD SPECIMENOrdering Facility: [facility] Address: [address] [place] [address] Performed By: #### 5 8410-2 ####[facility] LABIA [id number] [place] [address] [place] Platelets (Bld) [#/Vol] 173 10*3/uL Normal 150-400 [facility] Comment on above: Order Comment: Speci men Type: BLOOD SPECIMENOrdering Facility: [facility] Address: [address] [place] [address] Performed By: #### 5 8410-2 ####[facility] LABIA [id number] [place] [address] [place] RBC (Bld) [#/Vol] 4.28 10*6/uL Normal 3.90-5.20 [facility] Comment on above: Order Comment: Speci men Type: BLOOD SPECIMENOrdering Facility: [facility] Address: [address] [place] [address] Performed By: #### 5 8410-2 ####[facility] LABIA [id number] [place] [address] [place] WBC (Bld) [#/Vol] 6.38 10*3/uL Normal 3.70-11.00 [facility] Comment on above: Order Comment: Speci men Type: BLOOD SPECIMENOrdering Facility: [facility] Address: [address] [place] [address] Performed By: #### 5 8410-2 ####[facility] LABCLIA [id number] [place] [address] [place] Comprehensive metabolic 2000 panelon 08-25-2023 Albumin [Mass/Vol] 3.4 g/dL Low 3.9-4.9 [facility] Comment on above: Order Comment: Speci men Type: BLOOD SPECIMENOrdering Facility: [facility] Address: [address] [place] [address] Performed By: #### 1 9123-9, 17949-2 ####[facility] LABCLIA [id number] [place] [address] [place] ALP [Catalytic activity/Vol] 48 U/L Normal 34-123 [facility] Comment on above: Order Comment: Speci men Type: BLOOD SPECIMENOrdering Facility: [facility] Address: [address] [place] [address] Performed By: #### 1 23-9, 41900-1 ####[facility] LABCLIA [id number] [address] [place] ALT [Catalytic activity/Vol] 26 U/L Normal 7-38 [facility] Comment on above: Order Comment: Speci men Type: BLOOD SPECIMENOrdering Facility: [facility] Address: [address] [place] [address] Performed By: #### 1 9123-9, 16238-1 ####[facility] LABCLIA [id number] [place] [id number] [place] Anion gap [Moles/Vol] 10 mmol/L Normal 9-18 [facility] Comment on above: Order Comment: Speci men Type: BLOOD SPECIMENOrdering Facility: [facility] Address: [address] [place] [address] Performed By: #### 1 9123-9, 52797-2 ####[facility] LABCLIA [id number] [place] [address] [place] AST [Catalytic activity/Vol] 23 U/L Normal 13-35 [facility] Comment on above: Order Comment: Speci men Type: BLOOD SPECIMENOrdering Facility: [facility] Address: [address] [place] [address] Performed By: #### 1 9123-9, ####[facility] LABCLIA [id number] [place] [address] [place] Bilirubin [Mass/Vol] 0.9 mg/dL Normal 0.2-1.3 [facility] Comment on above: Order Comment: Speci men Type: BLOOD SPECIMENOrdering Facility: [facility] Address: [address] [place] [address] Performed By: #### 1 9123-9, ####[facility] LABCLIA [id number] [place] [address] [place] Calcium [Mass/Vol] 9.0 mg/dL Normal 8.5-10.2 [facility] Comment on above: Order Comment: Speci men Type: BLOOD SPECIMENOrdering Facility: [facility] Address: [address] [place] [address] Performed By: #### 1 9123-9, ####[facility] LABCLIA [id number] [place] [address] [place] Chloride [Moles/Vol] 97 mmol/L Normal 97-105 [facility] Comment on above: Order Comment: Speci men Type: BLOOD SPECIMENOrdering Facility: [facility] Address: [address] [place] [address] Performed By: #### 1 9123-9, ####[facility] LABCLIA [id number] [place] [address] [place] CO2 [Moles/Vol] 29 mmol/L Normal 22-30 [facility] Comment on above: Order Comment: Speci men Type: BLOOD SPECIMENOrdering Facility: [facility] Address: [address] [place] [address] Performed By: #### 1 9123-9, ####[facility] LABCLIA [id number] [place] [address] [place] Creatinine [Mass/Vol] 1.02 mg/dL High 0.58-0.96 [facility] Comment on above: Order Comment: Speci men Type: BLOOD SPECIMENOrdering Facility: [facility] Address: [address] [place] [address] Performed By: #### 1 9123-9, ####[facility] LABIA [id number] [place] [address] [place] Creatinine and Glomerular filtration rate.predicted panel (S/P/Bld) 57 mL/min/1.73m??? Low >=60 [facility] Comment on above: Order Comment: Speci men Type: BLOOD SPECIMENOrdering Facility: [facility] Address: [address] [place] [address] Result Comment: Shelley mated Glomerular Filtration Rate [...] actual GFR. Performed By: #### 1 9123-9, ####[facility] LABCLIA [id number] [place] [address] [place] Glucose [Mass/Vol] 84 mg/dL Normal 74-99 [facility] Comment on above: Order Comment: Speci men Type: BLOOD SPECIMENOrdering Facility: [facility] Address: [address] [place] [address] Result Comment: The [place] [employer] (ADA) provides guidance for cutoff [...] Standards of Medical Care in Diabetes 2016, [place] [employer]. Diabetes Care. 2016.39(Suppl 1). Performed By: #### 1 23-9, ####[facility] LABCLIA [id number] [place] [address] [place] Potassium [Moles/Vol] 3.4 mmol/L Low 3.7-5.1 [facility] Comment on above: Order Comment: Speci men Type: BLOOD SPECIMENOrdering Facility: [facility] Address: [address] [place] [address] Performed By: #### 1 239, ####[facility] LABCLIA [id number] [place] [address] [place] Protein [Mass/Vol] 5.7 g/dL Low 6.3-8.0 [facility] Comment on above: Order Comment: Speci men Type: BLOOD SPECIMENOrdering Facility: [facility] Address: [address] [place] [address] Performed By: #### 1 9123-04, ####[facility] LABCLIA [id number] [place] [address] [place] Sodium [Moles/Vol] 136 mmol/L Normal 136-144 [facility] Comment on above: Order Comment: Speci men Type: BLOOD SPECIMENOrdering Facility: [facility] Address: [address] [place] [address] Performed By: #### 1 239, ####[facility] LABCLIA [id number] [place] [address] [place] Urea nitrogen [Mass/Vol] 22 mg/dL High 7-21 [facility] Comment on above: Order Comment: Speci men Type: BLOOD SPECIMENOrdering Facility: [facility] Address: [address] [place] [address] Performed By: #### 1 9123-9, 48627-3 ####[facility] [id number] [place] [address] [place] Magnesium SerPl-mCncon 08-25 Magnesium [Mass/Vol] 2.2 mg/dL Normal 1.7-2.3 [facility] Comment on above: Order Comment: Speci men Type: BLOOD SPECIMENOrdering Facility: [facility] Address: [address] [place] [address] Performed By: #### 1 9123-9, 21596-9 ####[facility] [id number] [place] [address] [place] POTASSIUM BLDon 08-25-2023 Potassium [Moles/Vol] 4.3 mmol/L Normal 3.7-5.1 [facility] Comment on above: Order Comment: Speci men Type: BLOOD SPECIMENOrdering Facility: [facility] Address: [address] [place] [address] Performed By: #### K 1 ####[facility] [id number] [place] [id number] [place] US KIDNEY/BLADDERon 08-25-19 24 US KIDNEY/BLADDER Normal [facility] CBC W Auto Differential pane l (Bld)on 08-24-2023 Basophils (Bld) [#/Vol] 0.03 10*3/uL Normal <0.11 [facility] Comment on above: Order Comment: Speci men Type: BLOOD SPECIMENOrdering Facility: [facility] Address: [address] [place] [address] Performed By: #### 5 7021-8 ####[facility] LABCLIA [id number] [place] [address] [place] Basophils/100 WBC (Bld) 0.4 % Normal [facility] Comment on above: Order Comment: Speci men Type: BLOOD SPECIMENOrdering Facility: [facility] Address: [address] [place] [address] Performed By: #### 5 7021-8 ####[facility] LABCLIA [id number] [place] [address] [place] Differential cell count method Nom (Bld) Auto Normal [facility] Comment on above: Order Comment: Speci men Type: BLOOD SPECIMENOrdering Facility: [facility] Address: [address] [place] [address] Performed By: #### 5 7021-8 ####[facility] LABCLIA [id number] [place] [address] [place] Eosinophils (Bld) [#/Vol] 0.03 10*3/uL Normal <0.46 [facility] Comment on above: Order Comment: Speci men Type: BLOOD SPECIMENOrdering Facility: [facility] Address: [address] [place] [address] Performed By: #### 5 7021-8 ####[facility] LABCLIA [id number] [place] [address] [place] Eosinophils/100 WBC (Bld) 0.4 % Normal [facility] Comment on above: Order Comment: Speci men Type: BLOOD SPECIMENOrdering Facility: [facility] Address: [address] [place] [address] Performed By: #### 5 7021-8 ####[facility] LABCLIA [id number] [place] [address] [place] Erythrocyte distribution width (RBC) [Ratio] 12.7 % Normal 11.5-15.0 [facility] Comment on above: Order Comment: Speci men Type: BLOOD SPECIMENOrdering Facility: [facility] Address: [address] [place] [address] Performed By: #### 5 7021-8 ####[facility] LABCLIA [id number] [place] [address] [place] Hematocrit (Bld) [Volume fraction] 40.4 % Normal 36.0-46.0 [facility] Comment on above: Order Comment: Speci men Type: BLOOD SPECIMENOrdering Facility: [facility] Address: [address] [place] [address] Performed By: #### 5 7021-8 ####[facility] LABIA [id number] [place] [address] [place] Hemoglobin (Bld) [Mass/Vol] 13.2 g/dL Normal 11.5-15.5 [facility] Comment on above: Order Comment: Speci men Type: BLOOD SPECIMENOrdering Facility: [facility] Address: [address] [place] [address] Performed By: #### 5 7021-8 ####[facility] LABCLIA [id number] [place] [address] [place] Immature granulocytes (Bld) [#/Vol] 10*3/uL Normal <0.10 [facility] Comment on above: Order Comment: Speci men Type: BLOOD SPECIMENOrdering Facility: [facility] Address: [address] [place] [address] Performed By: #### 5 7021-8 ####[facility] LABCLIA [id number] [place] [address] [place] Immature granulocytes/100 WBC (Bld) 0.3 % Normal [facility] Comment on above: Order Comment: Speci men Type: BLOOD SPECIMENOrdering Facility: [facility] Address: [address] [place] [address] Performed By: #### 5 7021-8 ####[facility] LABCLIA [id number] [place] [address] [place] Lymphocytes (Bld) [#/Vol] 1.73 10*3/uL Normal 1.00-4.00 [facility] Comment on above: Order Comment: Speci men Type: BLOOD SPECIMENOrdering Facility: [facility] Address: [address] [place] [address] Performed By: #### 5 7021-8 ####[facility] LABCLIA [id number] [place] [address] [place] Lymphocytes/100 WBC (Bld) 23.4 % Normal [facility] Comment on above: Order Comment: Speci men Type: BLOOD SPECIMENOrdering Facility: [facility] Address: [address] [place] [address] Performed By: #### 5 7021-8 ####[facility] LABCLIA [id number] [place] [address] [place] MCH (RBC) [Entitic mass] 29.3 pg Normal 26.0-34.0 [facility] Comment on above: Order Comment: Speci men Type: BLOOD SPECIMENOrdering Facility: [facility] Address: [address] [place] [address] Performed By: #### 5 7021-8 ####[facility] LABCLIA [id number] [place] [address] [place] MCHC (RBC) [Mass/Vol] 32.7 g/dL Normal 30.5-36.0 [facility] Comment on above: Order Comment: Speci men Type: BLOOD SPECIMENOrdering Facility: [facility] Address: [address] [place] [address] Performed By: #### 5 7021-8 ####[facility] LABCLIA [id number] [place] [address] [place] MCV (RBC) [Entitic vol] 89.8 fL Normal 80.0-100.0 [facility] Comment on above: Order Comment: Speci men Type: BLOOD SPECIMENOrdering Facility: [facility] Address: [address] [place] [address] Performed By: #### 5 7021-8 ####[facility] LABCLIA [id number] [place] [address] [place] Monocytes (Bld) [#/Vol] 0.77 10*3/uL Normal <0.87 [facility] Comment on above: Order Comment: Speci men Type: BLOOD SPECIMENOrdering Facility: [facility] Address: [address] [place] [address] Performed By: #### 5 7021-8 ####[facility] LABCLIA [id number] [place] [address] [place] Monocytes/100 WBC (Bld) 10.4 % Normal [facility] Comment on above: Order Comment: Speci men Type: BLOOD SPECIMENOrdering Facility: [facility] Address: [address] [place] [address] Performed By: #### 5 7021-8 ####[facility] LABCLIA [id number] [place] [address] [place] Neutrophils (Bld) [#/Vol] 4.82 10*3/uL Normal 1.45-7.50 [facility] Comment on above: Order Comment: Speci men Type: BLOOD SPECIMENOrdering Facility: [facility] Address: [address] [place] [address] Performed By: #### 5 7021-8 ####[facility] LABCLIA [id number] [place] [address] [place] Neutrophils/100 WBC (Bld) 65.1 % Normal [facility] Comment on above: Order Comment: Speci men Type: BLOOD SPECIMENOrdering Facility: [facility] Address: [address] [place] [address] Performed By: #### 5 7021-8 ####[facility] LABCLIA [id number] [place] [address] [place] Nucleated RBC (Bld) [#/Vol] 10*3/uL Normal <0.01 [facility] Comment on above: Order Comment: Speci men Type: BLOOD SPECIMENOrdering Facility: [facility] Address: [address] [place] [address] Performed By: #### 5 7021-8 ####[facility] LABCLIA [id number] [place] [address] [place] Nucleated RBC/100 WBC (Bld) [Ratio] 0.0 /100 WBC Normal [facility] [facility] Comment on above: Order Comment: Speci men Type: BLOOD SPECIMENOrdering Facility: [facility] Address: [address] [place] [address] Performed By: #### 5 7021-8 ####[facility] LABCLIA [id number] [place] [address] [place] Platelet mean volume (Bld) [Entitic vol] 10.4 fL Normal 9.0-12.7 [facility] Comment on above: Order Comment: Speci men Type: BLOOD SPECIMENOrdering Facility: [facility] Address: [address] [place] [address] Performed By: #### 5 7021-8 ####[facility] LABCLIA [id number] [place] [address] [place] Platelets (Bld) [#/Vol] 201 10*3/uL Normal 150-400 [facility] Comment on above: Order Comment: Speci men Type: BLOOD SPECIMENOrdering Facility: [facility] Address: [address] [place] [address] Performed By: #### 5 7021-8 ####[facility] LABCLIA [id number] [place] [address] [place] RBC (Bld) [#/Vol] 4.50 10*6/uL Normal 3.90-5.20 [facility] Comment on above: Order Comment: Speci men Type: BLOOD SPECIMENOrdering Facility: [facility] Address: [address] [place] [address] Performed By: #### 5 7021-8 ####[facility] LABCLIA [id number] [address] [address] [place] WBC (Bld) [#/Vol] 7.40 10*3/uL Normal 3.70-11.00 [facility] Comment on above: Order Comment: Speci men Type: BLOOD SPECIMENOrdering Facility: [facility] Address: [address] [place] [address] Performed By: #### 5 7021-8 ####[facility] LABCLIA [id number] [place] [address] [place] CNPNon 08-24-2023 CNPN Normal [facility] Comprehensive metabolic 2000 panelon 08-24-2023 Albumin [Mass/Vol] 3.8 g/dL Low 3.9-4.9 [facility] Comment on above: Order Comment: Speci men Type: BLOOD SPECIMENOrdering Facility: [facility] Address: [address] [place] [address] Performed By: #### 2 4323-8 ####[facility] LABCLIA [id number] [place] [address] [place] ALP [Catalytic activity/Vol] 61 U/L Normal 34-123 [facility] Comment on above: Order Comment: Speci men Type: BLOOD SPECIMENOrdering Facility: [facility] Address: [address] [place] [address] Performed By: #### 2 4323-8 ####[facility] LABCLIA [id number] [place] [address] [place] ALT [Catalytic activity/Vol] 34 U/L Normal 7-38 [facility] Comment on above: Order Comment: Speci men Type: BLOOD SPECIMENOrdering Facility: [facility] Address: [address] [place] [address] Performed By: #### 2 4323-8 ####[facility] LABCLIA [id number] [place] [address] [place] Anion gap [Moles/Vol] 8 mmol/L Low 9-18 [facility] Comment on above: Order Comment: Speci men Type: BLOOD SPECIMENOrdering Facility: [facility] Address: [address] [place] [address] Performed By: #### 2 4323-8 ####[facility] LABCLIA [id number] [place] [address] [place] AST [Catalytic activity/Vol] 27 U/L Normal 13-35 [facility] Comment on above: Order Comment: Speci men Type: BLOOD SPECIMENOrdering Facility: [facility] Address: [address] [place] [address] Performed By: #### 2 4323-8 ####[facility] LABCLIA [id number] [place] [address] [place] Bilirubin [Mass/Vol] 0.7 mg/dL Normal 0.2-1.3 [facility] Comment on above: Order Comment: Speci men Type: BLOOD SPECIMENOrdering Facility: [facility] Address: [address] [place] [address] Performed By: #### 2 4323-8 ####[facility] LABCLIA [id number] [place] [address] [place] Calcium [Mass/Vol] 9.2 mg/dL Normal 8.5-10.2 [facility] Comment on above: Order Comment: Speci men Type: BLOOD SPECIMENOrdering Facility: [facility] Address: [address] [place] [address] Performed By: #### 2 4323-8 ####[facility] LABCLIA [id number] [place] [address] [place] Chloride [Moles/Vol] 97 mmol/L Normal 97-105 [facility] Comment on above: Order Comment: Speci men Type: BLOOD SPECIMENOrdering Facility: [facility] Address: [address] [place] [address] Performed By: #### 2 4323-8 ####[facility] LABCLIA [id number] [place] [address] [place] CO2 [Moles/Vol] 32 mmol/L High 22-30 [facility] Comment on above: Order Comment: Speci men Type: BLOOD SPECIMENOrdering Facility: [facility] Address: [address] [place] [address] Performed By: #### 2 4323-8 ####[facility] LABCLIA [id number] [place] [address] [place] Creatinine [Mass/Vol] 1.11 mg/dL High 0.58-0.96 [facility] Comment on above: Order Comment: Speci men Type: BLOOD SPECIMENOrdering Facility: [facility] Address: [address] [place] [address] Performed By: #### 2 4323-8 ####[facility] LABCLIA [id number] [address] [place] Creatinine and Glomerular filtration rate.predicted panel (S/P/Bld) 52 mL/min/1.73m??? Low >=60 [facility] Comment on above: Order Comment: Speci men Type: BLOOD SPECIMENOrdering Facility: [facility] Address: [address] [place] [address] Result Comment: Shelley mated Glomerular Filtration Rate [...] actual GFR. Performed By: #### 2 4323-8 ####[facility] LABCLIA [id number] [place] [address] [place] Glucose [Mass/Vol] 123 mg/dL High 74-99 [facility] Comment on above: Order Comment: Speci men Type: BLOOD SPECIMENOrdering Facility: [facility] Address: [address] [place] [address] Result Comment: The [place] Diabetes Association (ADA) provides guidance for cutoff [...] Standards of Medical Care in Diabetes 2016, [place] [employer]. Diabetes Care. 2016.39(Suppl 1). Performed By: #### 2 4323-8 ####[facility] LABCLIA [id number] [place] [address] [place] Potassium [Moles/Vol] 3.7 mmol/L Normal 3.7-5.1 [facility] Comment on above: Order Comment: Speci men Type: BLOOD SPECIMENOrdering Facility: [facility] Address: [address] [place] [address] Performed By: #### 2 4323-8 ####[facility] LABIA [id number] [place] [address] [place] Protein [Mass/Vol] 6.1 g/dL Low 6.3-8.0 [facility] Comment on above: Order Comment: Speci men Type: BLOOD SPECIMENOrdering Facility: [facility] Address: [address] [place] [address] Performed By: #### 2 4323-8 ####[facility] LABCLIA [id number] [place] [address] [place] Sodium [Moles/Vol] 137 mmol/L Normal 136-144 [facility] Comment on above: Order Comment: Speci men Type: BLOOD SPECIMENOrdering Facility: [facility] Address: [address] [place] [address] Performed By: #### 2 4323-8 ####[facility] LABCLIA [id number] [place] [address] [place] Urea nitrogen [Mass/Vol] 21 mg/dL Normal 7-21 [facility] Comment on above: Order Comment: Speci men Type: BLOOD SPECIMENOrdering Facility: [facility] Address: [place] [address] Performed By: #### 2 4323-8 ####[facility] LABCLIA [id number] [place] [address] [place] DIGOXIN/LANOXINon 08-24-2023 Digoxin [Mass/Vol] 1.1 ng/mL Normal 0.6-1.2 [facility] Comment on above: Order Comment: Speci men Type: BLOOD SPECIMENOrdering Facility: [facility] Address: [address] [place] [address] Result Comment: Prov ided therapeutic concentrations are based on the 2008 ESC Guidelines for the Diagnosis and Treatment of Acute and Chronic Heart Failure.Reference ranges and high/low indicator flags are provided as general guidelines only. The treating physician must determine appropriate target levels/dosing based on the specific clinical situation. Performed By: #### D IG ####[facility] LABCLIA [id number] [place] [id number] [place] HISTORY PHYSICALon HISTORY PHYSICAL Normal [facility] URINALYSIS, DIPSTICK ONLYon 08-24-2023 Bilirubin Ql (U) Negative Normal Negative [facility] Comment on above: Order Comment: Speci men Type: URINE SPECIMENOrdering Facility: [facility] Address: [address] [place] [address] Performed By: #### U A ####[facility] LABCLIA [id number] [place] [address] [place] Clarity (Unsp spec) Cloudy Abnormal Clear [facility] Comment on above: Order Comment: Speci men Type: URINE SPECIMENOrdering Facility: [facility] Address: [address] [place] [address] Performed By: #### U A ####[facility] LABCLIA [id number] [place] [address] [place] Color (U) Yellow Normal Yellow [facility] Comment on above: Order Comment: Speci men Type: URINE SPECIMENOrdering Facility: [facility] Address: [address] [place] [address] Performed By: #### U A ####[facility] LABCLIA [id number] [place] [address] [place] Glucose Test strip (U) [Mass/Vol] Negative Normal Negative [facility] Comment on above: Order Comment: Speci men Type: URINE SPECIMENOrdering Facility: [facility] Address: [address] [place] [address] Performed By: #### U A ####[facility] LABCLIA [id number] [place] [address] [place] Hemoglobin Ql (U) Trace Abnormal Negative [facility] Comment on above: Order Comment: Speci men Type: URINE SPECIMENOrdering Facility: [facility] Address: [address] [place] [address] Performed By: #### U A ####[facility] LABCLIA [id number] [place] [address] [place] Ketones Ql (U) Trace Abnormal Negative [facility] Comment on above: Order Comment: Speci men Type: URINE SPECIMENOrdering Facility: [facility] Address: [address] [place] [address] Performed By: #### U A ####[facility] LABCLIA [id number] [place] [address] [place] Leukocyte esterase Test strip Ql (U) 1+ Abnormal Negative [facility] Comment on above: Order Comment: Speci men Type: URINE SPECIMENOrdering Facility: [facility] Address: [address] [place] [address] Performed By: #### U A ####[facility] LABCLIA [id number] [place] [address] [place] Nitrite Ql (U) Negative Normal Negative [facility] Comment on above: Order Comment: Speci men Type: URINE SPECIMENOrdering Facility: [facility] Address: [address] [place] [address] Performed By: #### U A ####[facility] LABIA [id number] [place] [address] [place] pH (U) 5.5 [pH] Normal <8.5 [facility] Comment on above: Order Comment: Speci men Type: URINE SPECIMENOrdering Facility: [facility] Address: [address] [place] [address] Performed By: #### U A ####[facility] LABIA [id number] [place] [address] [place] Protein (U) [Mass/Vol] 1+ Abnormal Negative [facility] Comment on above: Order Comment: Speci men Type: URINE SPECIMENOrdering Facility: [facility] Address: [address] [place] [address] Performed By: #### U A ####[facility] LABIA [id number] [place] [address] [place] Specific gravity (U) [Rel density] 1.021 Normal 1.005-1.030 [facility] Comment on above: Order Comment: Speci men Type: URINE SPECIMENOrdering Facility: [facility] Address: [address] [place] [address] Performed By: #### U A ####[facility] LABIA [id number] [place] [address] [place] Urobilinogen Ql (U) 1.0 EU/dL Normal 0.2-1.0 EU/dL [facility] Comment on above: Order Comment: Speci men Type: URINE SPECIMENOrdering Facility: [facility] Address: [address] [place] [address] Performed By: #### U A ####[facility] LABIA [id number] [place] [address] [place] CBC panel Auto (Bld)on 08-23 Erythrocyte distribution width (RBC) [Ratio] 12.9 % Normal 11.5-15.0 [facility] Comment on above: Order Comment: Speci men Type: BLOOD SPECIMENOrdering Facility: [facility] Address: [address] [place] [address] Performed By: #### 5 8410-2 ####[facility] [id number] [place] [address] [place] Hematocrit (Bld) [Volume fraction] 43.4 % Normal 36.0-46.0 [facility] Comment on above: Order Comment: Speci men Type: BLOOD SPECIMENOrdering Facility: [facility] Address: [address] [place] [address] Performed By: #### 5 8410-2 ####[facility] [id number] [place] [address] [place] Hemoglobin (Bld) [Mass/Vol] 14.4 g/dL Normal 11.5-15.5 [facility] Comment on above: Order Comment: Speci men Type: BLOOD SPECIMENOrdering Facility: [facility] Address: [address] [place] [address] Performed By: #### 5 8410-2 ####[facility] [id number] [place] [address] [place] MCH (RBC) [Entitic mass] 30.3 pg Normal 26.0-34.0 [facility] Comment on above: Order Comment: Speci men Type: BLOOD SPECIMENOrdering Facility: [facility] Address: [address] [place] [address] Performed By: #### 5 8410-2 ####[facility] LABCLIA [id number] [place] [address] [place] MCHC (RBC) [Mass/Vol] 33.2 g/dL Normal 30.5-36.0 [facility] Comment on above: Order Comment: Speci men Type: BLOOD SPECIMENOrdering Facility: [facility] Address: [address] [place] [address] Performed By: #### 5 8410-2 ####[facility] LABIA [id number] [place] [address] [place] MCV (RBC) [Entitic vol] 91.4 fL Normal 80.0-100.0 [facility] Comment on above: Order Comment: Speci men Type: BLOOD SPECIMENOrdering Facility: [facility] Address: [address] [place] [address] Performed By: #### 5 8410-2 ####[facility] LABIA [id number] [place] [address] [place] Nucleated RBC (Bld) [#/Vol] 10*3/uL Normal <0.01 [facility] Comment on above: Order Comment: Speci men Type: BLOOD SPECIMENOrdering Facility: [facility] Address: [address] [place] [address] Performed By: #### 5 8410-2 ####[facility] LABIA [id number] [place] [address] [place] Platelet mean volume (Bld) [Entitic vol] 10.5 fL Normal 9.0-12.7 [facility] Comment on above: Order Comment: Speci men Type: BLOOD SPECIMENOrdering Facility: [facility] Address: [address] [place] [address] Performed By: #### 5 8410-2 ####[facility] LABCLIA [id number] [place] [address] [place] Platelets (Bld) [#/Vol] 215 10*3/uL Normal 150-400 [facility] Comment on above: Order Comment: Speci men Type: BLOOD SPECIMENOrdering Facility: [facility] Address: [address] [place] [address] Performed By: #### 5 8410-2 ####[facility] LABCLIA [id number] [place] [address] [place] RBC (Bld) [#/Vol] 4.75 10*6/uL Normal 3.90-5.20 [facility] Comment on above: Order Comment: Speci men Type: BLOOD SPECIMENOrdering Facility: [facility] Address: [address] [place] [address] Performed By: #### 5 8410-2 ####[facility] LABCLIA [id number] [place] [address] [place] WBC (Bld) [#/Vol] 6.24 10*3/uL Normal 3.70-11.00 [facility] Comment on above: Order Comment: Speci men Type: BLOOD SPECIMENOrdering Facility: [facility] Address: [address] [place] [address] Performed By: #### 5 8410-2 ####[facility] LABCLIA [id number] [place] [id number] [place] CNOVon 08-23-2023 CNOV Normal [facility] CNOV Normal [facility] CREATININE BLDon 08-23-2023 Creatinine [Mass/Vol] 0.97 mg/dL High 0.58-0.96 [facility] Comment on above: Order Comment: Speci men Type: BLOOD SPECIMENOrdering Facility: [facility] Address: [address] [place] [address] Performed By: #### C RET1 ####[facility] LABIA [id number] [place] [address] [place] Creatinine and Glomerular filtration rate.predicted panel (S/P/Bld) 61 mL/min/1.73m??? Normal >=60 [facility] Comment on above: Order Comment: Speci men Type: BLOOD SPECIMENOrdering Facility: [facility] Address: [address] [place] [address] Result Comment: Shelley mated Glomerular Filtration Rate [...] actual GFR. Performed By: #### C RET1 ####[facility] LABIA [id number] [place] [address] [place] CTA CHEST (GATED) W IVCONon 08-23-2023 CTA CHEST (GATED) W IVCON Normal [facility] Comprehensive metabolic 2000 panelon 08-23-2023 Albumin [Mass/Vol] 4.4 g/dL Normal 3.9-4.9 [facility] Comment on above: Order Comment: Speci men Type: BLOOD SPECIMENOrdering Facility: [facility] Address: [address] [place] [address] Performed By: #### 2 4323-8, 66611-1 ####[facility] LABIA [id number] [place] [address] [place] ALP [Catalytic activity/Vol] 66 U/L Normal 34-123 [facility] Comment on above: Order Comment: Speci men Type: BLOOD SPECIMENOrdering Facility: [facility] Address: [address] [place] [address] Performed By: #### 2 4323-8, 70725-2 ####[facility] LABCLIA [id number] [address] [address] [place] ALT [Catalytic activity/Vol] 40 U/L High 7-38 [facility] Comment on above: Order Comment: Speci men Type: BLOOD SPECIMENOrdering Facility: [facility] Address: [address] [place] [address] Performed By: #### 2 4323-8, 65638-9 ####[facility] LABCLIA [id number] [place] [address] [place] Anion gap [Moles/Vol] 9 mmol/L Normal 9-18 [facility] Comment on above: Order Comment: Speci men Type: BLOOD SPECIMENOrdering Facility: [facility] Address: [address] [place] [address] Performed By: #### 2 4323-8, 59533-9 ####[facility] LABCLIA [id number] [place] [address] [place] AST [Catalytic activity/Vol] 31 U/L Normal 13-35 [facility] Comment on above: Order Comment: Speci men Type: BLOOD SPECIMENOrdering Facility: [facility] Address: [address] [place] [address] Performed By: #### 2 4323-8, 53549-2 ####[facility] LABCLIA [id number] [place] [address] [place] Bilirubin [Mass/Vol] 0.8 mg/dL Normal 0.2-1.3 [facility] Comment on above: Order Comment: Speci men Type: BLOOD SPECIMENOrdering Facility: [facility] Address: [address] [place] [address] Performed By: #### 2 4323-8, 27817-1 ####[facility] LABCLIA [id number] [place] [address] [place] Calcium [Mass/Vol] 9.8 mg/dL Normal 8.5-10.2 [facility] Comment on above: Order Comment: Speci men Type: BLOOD SPECIMENOrdering Facility: [facility] Address: [address] [place] [address] Performed By: #### 2 4323-8, 91509-8 ####[facility] LABCLIA [id number] [place] [address] [place] Chloride [Moles/Vol] 98 mmol/L Normal 97-105 [facility] Comment on above: Order Comment: Speci men Type: BLOOD SPECIMENOrdering Facility: [facility] Address: [address] [place] [address] Performed By: #### 2 4323-8, 06373-0 ####[facility] LABCLIA [id number] [place] [address] [place] CO2 [Moles/Vol] 32 mmol/L High 22-30 [facility] Comment on above: Order Comment: Speci men Type: BLOOD SPECIMENOrdering Facility: [facility] Address: [address] [place] [address] Performed By: #### 2 4323-8, 38888-5 ####[facility] LABCLIA [id number] [place] [address] [place] Creatinine [Mass/Vol] 0.98 mg/dL High 0.58-0.96 [facility] Comment on above: Order Comment: Speci men Type: BLOOD SPECIMENOrdering Facility: [facility] Address: [address] [place] [address] Performed By: #### 2 4323-8, 86926-6 ####[facility] LABCLIA [id number] [place] [address] [place] Creatinine and Glomerular filtration rate.predicted panel (S/P/Bld) 60 mL/min/1.73m??? Normal >=60 [facility] Comment on above: Order Comment: Speci men Type: BLOOD SPECIMENOrdering Facility: [facility] Address: [address] [place] [address] Result Comment: Shelley mated Glomerular Filtration Rate [...] actual GFR. Performed By: #### 2 4323-8, 65595-0 ####[facility] LABIA [id number] [place] [address] [place] Glucose [Mass/Vol] 127 mg/dL High 74-99 [facility] Comment on above: Order Comment: Nichole becerra Type: BLOOD SPECIMENOrdering Facility: [facility] Address: [address] [place] [address] Result Comment: The [place] [employer] (ADA) provides guidance for cutoff [...] Standards of Medical Care in Diabetes 2016, [place] [employer]. Diabetes Care. 2016.39(Suppl 1). Performed By: #### 2 4323-8, 88046-2 ####[facility] LABIA [id number] [place] [id number] [place] Potassium [Moles/Vol] 4.1 mmol/L Normal 3.7-5.1 [facility] Comment on above: Order Comment: Nichole becerra Type: BLOOD SPECIMENOrdering Facility: [facility] Address: [address] [place] [address] Performed By: #### 2 4323-8, 38942-1 ####[facility] LABIA [id number] [place] [address] [place] Protein [Mass/Vol] 6.8 g/dL Normal 6.3-8.0 [facility] Comment on above: Order Comment: Speci men Type: BLOOD SPECIMENOrdering Facility: [facility] [facility] Address: [address] [place] [address] Performed By: #### 2 4323-8, 43130-2 ####[facility] [id number] [place] [address] [place] Sodium [Moles/Vol] 139 mmol/L Normal 136-144 [facility] Comment on above: Order Comment: Speci men Type: BLOOD SPECIMENOrdering Facility: [facility] Address: [address] [place] [address] Performed By: #### 2 4323-8, 45219-5 ####[facility] [id number] [place] [address] [place] Urea nitrogen [Mass/Vol] 17 mg/dL Normal 7-21 [facility] Comment on above: Order Comment: Speci men Type: BLOOD SPECIMENOrdering Facility: [facility] Address: [address] [place] [address] Performed By: #### 2 4323-8, 48338-9 ####[facility] [id number] [place] [address] [place] [id number] 08-23-2023 ECG01 Normal [facility]23 Natriuretic peptide.B prohormone N-Terminal [Mass/Vol] 3265 pg/mL High <450 [facility] Comment on above: Order Comment: Speci men Type: BLOOD SPECIMENOrdering Facility: [facility] Address: [address] [place] [address] Performed By: #### 2 4323-8, 12893-4 ####[facility] [id number] [place] [id number] [place] RIGHT HEART CATH REPORTon RIGHT HEART CATH REPORT Normal [facility] US CAROTID ARTERIES ZAC VAS LABon 08-23-2023 US CAROTID ARTERIES ZAC VAS LAB Normal [facility] CNPNon 08-22-2023 CNPN Normal [facility] CNPNon 08-16-2023 CNPN Normal [facility] Outside Cardiovascularon Outside Cardiovascular [id number]# 1.00TIFF Normal [facility] Progress Note-Physicianon Progress Note-Physician [id number]#1 .00TIFF Normal [facility] Echocardiogram-Transesophage anamaria 07-28-2023 Echocardiogram-Transe sophageal [id number]# 1.00TIFF Normal [facility] CNPNon 07-24-2023 CNPN Normal [facility] Discharge Instructionson Discharge Instructions [id number]# 1.00TIFF Normal [facility] Formson 07-24-2023 Forms [id number]#1 .00TIFF Normal [facility] Consent for Treatmenton Consent for Treatment [id number]#1 .00TIFF Normal [facility] Inpatient Clinical Summaryon 07-21-2023 Inpatient Clinical Summary [address] [address] Clinical Summary Person Information: Name: ASYA ASENCIO I Age: 73 Years : 1950 Sex: Female PCP: Aravind MCMAHON, Peggy Mcmillan Marital Status: Race: White Ethnicity: Non- or Language: Guinean Visit Id: Visit Reason: I51.9, I42.8 Speciality: Acuity: Enc Type: Ambulatory/Same Day Surgery Med Service: Surgery Arrival: 07/21/2023 06:33:24 Discharge: Dispo Type: Address: [address] [place] [address] ROAD [facility] E [facility] [id number] Provider Notes: Diagnosis: Problems Active Urethral stricture [...] Follow up: With: Address: When: Johan HENRIQUEZ [address] [place] [phone] Business (1) Comments: -After your appointment with CC Type Location Start [facility] [address] URO Office Visit [facility] 01/24/2024 2:30 PM 01/24/2024 2:45 PM Confirmed Patient Education Information: CV - Post-Transesophageal Echocardiogram (Custom) Normal [facility] Inpatient Patient Summaryon 07-21-2023 Inpatient Patient Summary [place] [id number] Patient Discharge Instructions PERSON INFORMATION Name: ASYA ASENCIO I Date of : 1950 Current Date: 07/21/2023 09:05:07 PHYSICIANS Admitting Physician: Johan HENRIQUEZ MD Primary Care Physician: Peggy Nazario MD PCP Comment: Discharge Diagnosis: Condition at Discharge: [...] Follow up: With: Address: When: Johan HENRIQUEZ [address] [place] [phone] (1) Comments: -After your appointment with CC In the event that this physician does not participate in your insurance network, please consult with your insurance company to find a nearby participating provider. Type Location Start [facility] [address] URO Office Visit [facility] 01/24/2024 2:30 PM 01/24/2024 2:45 PM Confirmed [...] Mouth every day. Refills: 0. Pharmacy Information: [facility] Comment: PATIENT EDUCATION INFORMATION Instructions: [place] POST-TRANSESOPHAGEAL ECHOCARDIOGRAM AFTER THE PROCEDURE: Diet: ? May eat/drink and/or take normal daily medications after 10:45 Activity: ? You should have someone stay with you for the next (more content not included)... Normal [facility] Patient Education - Texton 1 09-21-2022 Patient Education - Text [place] POST-TRANSESOPHAGEAL ECHOCARDIOGRAM AFTER THE PROCEDURE: Diet: [...] Seek Medical Care if: ? Notify your monorail hooker should you have any difficulty swallowing or coughing up blood. ? In the event you are unable to reach your monorail hooker, please call [facility] at [phone] and the linotype operator will assist you. Normal [facility] Referrals Officeon 3 Referrals Office [id number]# 1.00TIFF Normal [facility] Consent for Procedure/Surger yon 07-20-2023 Consent for Procedure/Surgery [id number] #1.00TIFF Normal [facility] Consent for Treatmenton 0 Consent for Treatment [id number]#1 .00TIFF Normal [facility] Heart and Vascular Office/Cl inic Noteon [...] confirmed by markedly elevated V wave on Stacy-Lois catheter wedge pressure tracing. 5. Normal left [...] The patient wishes to go to the [facility] for mitral and tricuspid valve repair if [...] Renal le (more content not included)... Normal [facility] Comment on above: Result Comment: Elec tronically Signed By: MARTINEZ MCMAHON, Johan Patino\.br\Date and Time Signed: 07/20/23 10:38 EST Physician Orderon 07-20-2023 Physician Order [id number] #1.00TIFF Normal [facility] Ambulatory Visit Summaryon 1 09-19-2022 Ambulatory [...] Micheline BROOKS MD Where: [facility] Patient Educationon 07-19-20 Patient Education Urology Urodynamic [...] including vitamins, herbs, eye drops, creams, and tihl-sar-txwcmvk medicines. ? Whether you are or may [...] results be (more content not included)... Normal [facility] Urology Office/Clinic Noteon 07-19-2023 Urology Office/Clinic Note Chief Complaint f/u for urinary retention HPI Staff Pt was last seen on 04/26/23. Pt was seen at [facility] on 07/07/23. Pt had Robles. placed at [...] of incomplete bladder emptying) Pt presented to [facility] ED 07/03/23 due to urinary retention. Robles [...] With When Contact Information CECILIA MCMAHON, Micheline R, URL [facility] [address] [place] [address]- Additional Instructions: 6 mos Patient Education Urodynamic Testing I, Felisa Bautista, personally scribed for Dr. Brooks on 07/19/2023 [...] tab(s), Oral, BID (more content not included)... Normal [facility] Comment on above: Result Comment: Elec [...] mild cad The ekg nor echo showed [place] and the Cardiology consult didn't mention it and his recommendations were reviewed and agreed with. Was the [place] type II ruled out or should that be coded? Thank you Fiona VERGARA Coding From: Nahid SERRATO MD To: Natalya Ansari; Sent: 07/17/2023 12:28:48 EST Subject: RE: Coding Query Caller Name: ASYA ASENCIO I; Caller Number: H Type 2 acute NSTEMI due to demand ischemia from A-FIB with RVR. (POA) Normal [facility] ED Note-Physicianon 07-15-20 ED Note-Physician Basic Information Time Seen: Jeff Cross DO 07/07/2023 09:00 Chief Complaint discharged yesterday from [facility], reports can't breathe w/exertion History of Present [...] of 40. 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 She just underwent ischemic evaluation including catheterization [...] HENRIQUEZ In 3 days 07/10/2023 EST [address] [place] [address]- [phone] Business (1) Additional Instructions: Peggy Nazario In 3 days 07/10/[address] [place] [address]- Business (1) Additional Instructions (more content not included)... Normal [facility] Comment on above: Result Comment: Elec tronically Signed By: Jannette Black PA-C\.br\Date and Time Signed: 07/07/23 15:56 EST\.br\Electronically Co-Signed By: Jeff Cross DO\.br\Date and Time Co-Signed: 07/15/23 06:59 EST Cardiovascular Reporton 11- Cardiovascular Report [id number]# 2.00TIFF Normal [facility] Nursing Assessmenton 023 Nursing Assessment [id number]# 1.00TIFF Normal [facility] Discharge Instructionson Discharge Instructions [id number]# 1.00TIFF Normal [facility] Auto Diffon 07-07-2023 Basophils/100 WBC (Bld) 0.6 % Normal 0.0-2.0 [facility] Comment on above: Order Comment: Order Added by Discern Expert. Performed By: #### 2 141869, 42801380, 1233573, 1285874, 7203504, 4364923 #### [facility] [address] [place] [address] Basophils/Leukocytes Auto (Bld) [Pure # fraction] 0.0 E9/L Normal 0.0-0.2 [facility] Comment on above: Order Comment: Order Added by Discern Expert. Performed By: #### 2 556058, 53641473, 6709743, 0430716, 5620127, 7536498 #### [facility] [address] [place] [address] Eosinophils/100 WBC (Bld) 1.5 % Normal 0.0-8.0 [facility] Comment on above: Order Comment: Order Added by Discern Expert. Performed By: #### 2 906020, 35818153, 9488577, 2273506, 4885235, 5369067 #### [facility] [address] [place] [address] Eosinophils/Leukocyte s Auto (Bld) [Pure # fraction] 0.1 E9/L Normal 0.0-0.5 [facility] Comment on above: Order Comment: Order Added by Valeria Expert. Performed By: #### 2 212013, 66832965, 9630653, 7646089, 8311416, 0721994 #### [facility] [address] [place] [address] Lymphocytes/100 WBC (Bld) 15.3 % Normal 14.0-50.0 [facility] Comment on above: Order Comment: Order Added by Discern Expert. Performed By: #### 2 473053, 05974798, 0409711, 3997323, 4380905, 3693040 #### [facility] [address] [place] [address] Lymphocytes/Leukocyte s Auto (Bld) [Pure # fraction] 1.2 E9/L Normal 1.0-4.0 [facility] Comment on above: Order Comment: Order Added by Discern Expert. Performed By: #### 2 169572, 38029296, 6454677, 2700266, 5029437, 2143694 #### [facility] [address] [place] [address] Monocytes/100 WBC (Bld) 6.4 % Normal 4.0-14.0 [facility] Comment on above: Order Comment: Order Added by Discern Expert. Performed By: #### 2 552287, 76164543, 7048983, 5170183, 5878857, 5670633 #### [facility] [address] [place] [address] Monocytes/Leukocytes Auto (Bld) [Pure # fraction] 0.5 E9/L Normal 0.2-1.0 [facility] Comment on above: Order Comment: Order Added by Discern Expert. Performed By: #### 2 062421, 40236276, 9852447, 8899437, 5485352, 7221061 #### [facility] [address] [place] [address] Neutrophils/100 WBC (Bld) 76.2 % High 36.0-75.0 [facility] Comment on above: Order Comment: Order Added by Discern Expert. Performed By: #### 2 282550, 06146044, 6167844, 2764879, 8649567, 6842202 #### [facility] [address] [place] [address] Neutrophils/Leukocyte s Auto (Bld) [Pure # fraction] 6.1 E9/L Normal 2.0-7.5 [facility] Comment on above: Order Comment: Order Added by Discern Expert. Performed By: #### 2 022454, 46318620, 0771218, 6400642, 8717478, 0825810 #### [facility] [address] [place] [address] BMPon 07-07-2023 Creatinine [Mass/Vol] 0.8 mg/dL Normal 0.5-1.3 [facility] Comment on above: Performed By: #### 2 796083, 15982195, 0750765, 4286175, 9514558, 0413326 #### [facility] [address] [place] [address] Urea nitrogen [Mass/Vol] 13 mg/dL Normal 5-21 [facility] Comment on above: Performed By: #### 2 993382, 04711310, 1329612, 3451989, 8023690, 7152652 #### [facility] [address] [place] [address] Urea nitrogen/Creatinine [Mass ratio] 16 No Units Normal 10-20 [facility] Comment on above: Performed By: #### 2 617720, 76692991, 0967946, 1695614, 2018469, 4946888 #### [facility] [address] [place] [address] Anion gap [Moles/Vol] 14 mmol/L Normal 6-16 [facility] Comment on above: Performed By: #### 2 188467, 46215803, 8484751, 4385225, 6168632, 8170410 #### [facility] [address] [place] [address] Calcium [Mass/Vol] 8.7 mg/dL Low 8.9-11.1 [facility] Comment on above: Performed By: #### 2 675307, 90221532, 9522631, 1662245, 8890690, 4921088 #### [facility] [address] [place] [address] Chloride [Moles/Vol] 100 mmol/L Low 101-111 [facility] Comment on above: Performed By: #### 2 107041, 50503466, 3915299, 9905951, 3707042, 7541920 #### [facility] [address] [place] [address] CO2 [Moles/Vol] 26 mmol/L Normal 21-31 [facility] Comment on above: Performed By: #### 2 729156, 62898603, 2687638, 7977471, 9075187, 0071524 #### [facility] [address] [place] [address] Glucose [Mass/Vol] 137 mg/dL Normal 55-199 [facility] Comment on above: Result Comment: If t his glucose result represents a fasting glucose, interpretation should refer to the following reference range: 55-99 mg/dL Performed By: #### 2 458896, 63226234, 0807195, 3086408, 8443275, 7373323 #### [facility] [address] [place] [address] Potassium [Moles/Vol] 4.3 mmol/L Normal 3.5-5.3 [facility] Comment on above: Performed By: #### 2 891260, 75778933, 9861735, 8434041, 2574598, 4765235 #### [facility] [address] [place] [address] Sodium [Moles/Vol] 136 mmol/L Normal 135-145 [facility] Comment on above: Performed By: #### 2 375791, 95646445, 9616246, 2592095, 1713077, 5801026 #### [facility] [address] [place] [address] BNPon 07-07-2023 Natriuretic peptide B (Bld) [Mass/Vol] 756 pg/mL High 5-80 [facility] Comment on above: Performed By: #### 2 600756, 82268688, 3308898, 7264767, 0037691, 6807079 #### [facility] [address] [place] [address] CBC w/ Auto Diffon Erythrocyte distribution width (RBC) [Ratio] 13.8 % Normal 10.9-14.2 [facility] Comment on above: Performed By: #### 2 833120, 73450484, 8640291, 8732955, 1196611, 7092098 #### [facility] [address] [place] [address] Hematocrit (Bld) [Volume fraction] 40.3 % Normal 34.0-46.0 [facility] Comment on above: Performed By: #### 2 036617, 30213601, 8115000, 6447254, 1300919, 7164811 #### [facility] [address] [place] [address] Hemoglobin (Bld) [Mass/Vol] 13.0 g/dL Normal 12.0-16.0 [facility] Comment on above: Performed By: #### 2 358273, 76527237, 5333294, 6410716, 0513664, 3528220 #### [facility] [address] [place] [address] MCH (RBC) [Entitic mass] 29.2 pg Normal 27.0-34.0 [facility] Comment on above: Performed By: #### 2 205419, 93486081, 6519982, 1560308, 9935294, 9625370 #### [facility] [address] [place] [address] MCHC (RBC) [Mass/Vol] 32.3 g/dL Normal 31.4-36.0 [facility] Comment on above: Performed By: #### 2 754070, 34527849, 1342715, 2577716, 2375174, 0340336 #### [facility] [address] [place] [address] MCV (RBC) [Entitic vol] 90.2 fL Normal 80.0-100.0 [facility] Comment on above: Performed By: #### 2 167300, 97137102, 5485784, 2936717, 8732643, 5928275 #### [facility] [address] [place], [place] [address] Platelet mean volume (Bld) [Entitic vol] 8.5 fL Normal 6.4-10.8 [facility] Comment on above: Performed By: #### 2 302038, 46953930, 5179107, 8264950, 6985887, 6751818 #### [facility] [address] [place] [address] Platelets (Bld) [#/Vol] 291.0 E9/L Normal 150.0-500.0 [facility] Comment on above: Performed By: #### 2 981695, 00123968, 9872215, 8068885, 5332977, 4037747 #### [facility] [address] [place] [address] RBC (Bld) [#/Vol] 4.5 E12/L Normal 4.3-5.9 [facility] Comment on above: Performed By: #### 2 141486, 23880056, 8713497, 9185291, 0724811, 5548178 #### [facility] [address] [place] [address] WBC corrected for nucl RBC Auto (Bld) [#/Vol] 8.0 E9/L Normal 4.0-11.0 [facility] Comment on above: Performed By: #### 2 156882, 38146086, 9214774, 5200823, 2020949, 4225975 #### [facility] [address] [place], [place] [address] CHEMISTRYOrdered By: SYSTEM SYSTEM on 07-07-2023 Troponin I.cardiac [Mass/Vol] 42.10 pg/mL Invalid Interpretation Code 10.10 - 27.10 pg/mL [facility] Remisol Comment on above: Result Comment: Crit [...] Sensitivity Troponin I Instructions For Use, Marlys Pearce, March 2018) Anion gap [Moles/Vol] 14 mmol/L [...] 77 mL/min/1.73 m2 Normal >=59mL/min/1 .73 m2 [facility] Chem S Comment on above: Interpretive Data: [...] Sensitivity Troponin I Instructions For Use, Marlys Pearce, March 2018) Urea nitrogen [Mass/Vol] 13 mg/dL Normal 5 - 21 mg/dL [facility] Remisol Urea nitrogen/Creatinine [Mass ratio] 16 mg/mg Normal 10 - 20 [facility] Remisol CHEMISTRYOrdered By: Margaret Collier on 07-07-2023 Natriuretic peptide B (Bld) [Mass/Vol] 756 pg/mL High 5 - 80 pg/mL [facility] HemeManSS COAGULATIONOrdered By: Fay Tran on 07-07-2023 aPTT Coag (PPP) [Time] 28.4 s Normal 25.1 - 36.5 second(s) [facility] Auto Coag Comment on above: Interpretive Data: [...] the same coagulation reagent and instrumentation as [facility]. Currently there are no coagulation studies available worldwide for children to 14 days, and no normal ranges. Heparin therapeutic range (represented by Anti-Factor Xa activity of 0.2 - 0.4 U/mL) corresponds to PTT of 56.6 - 109.0 sec. INR Coag (PPP) [Relative time] 1.0 {INR} Invalid Interpretation Code [facility] Auto Coag Comment on above: Interpretive Data: I NR results are specifically intended to assess patients stabilized on long-term Anticoagulation therapy suggested INR s Less Intensive Anticoagulation 2.0 3.0 Conventional Range 3.0 4.5 PT Coag (PPP) [Time] 11.3 s Normal 9.4 - 1 2.5 second(s) [facility] Auto Coag Comment on above: Interpretive Data: [...] the same coagulation reagent and instrumentation as [facility]. Currently there are no coagulation studies available worldwide for children to 14 days, and no normal ranges. Consent for Procedure/Surger yon 07-07-2023 Consent for Procedure/Surgery [id number]# 1.00TIFF Normal [facility] Consent for Treatmenton 06-15 Consent for Treatment [id number]#1 .00TIFF Normal [facility] Discharge Instructionson Discharge Instructions [id number]#1 .00TIFF Normal [facility] ED Clinical Summaryon 2022 ED Clinical Summary [place] [address] ED Clinical Summary Person Information Name: ASYA ASENCIO I [place] Age: 73 Years : 1950 Sex: Female Language: Guinean PCP: Peggy Nazario MD Marital Status: Visit [...] 07/07/2023 13:04:13 07/07/2023 13:04:13 07/07/2023 13:04:13 ADDRESS: [address] [place] [id number] [facility] DOC NOTES: MEDICAL INFORMATION: Prescriptions Given: Medications [...] Fibrillation Follow up: With: Address: When: Johan HENRIQUEZ [address] [place], [place] [id number] [phone] (1) In 3 days 07/10/2023 With: Address: When: Peggy Nazario [address] [employer] [place] [phone] (1) In 3 days 07/10/2023 DIAGNOSIS: A-fib; Anxiety Normal [facility] ED Note-Nursingon 07-07-2023 ED Note-Nursing discussed in length medications pt needs to take yet today and 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 Normal [facility] ED Patient Education Noteon 07-07-2023 ED [...] signals of the heart. ? An ambulatory nurseryman assistant to record your heart's activity for a [...] Trouble breathing. (more content not included)... Normal [facility] ED Patient Summaryon 023 ED Patient Summary [address] [address] Patient Discharge Instructions Person Information Name: ASYA ASENCIO I Age: 73 Years Arrival Date: 07/07/2023 08:56:07 Discharge Diagnosis: A-fib; Anxiety Primary Care Physician: Peggy Nazario MD Provider Information Primary Provider: Jeff Cross DO Advanced Wood Setter:Jannette Black PA-C The exam and treatment you received in the Emergency Department were for an urgent problem and are not intended as complete care. It is important that you follow up with a doctor, nurse practitioner, or physician?s field assistant for ongoing care. If your symptoms become [...] Follow-up Instructions: With: Address: When: Johan HENRIQUEZ [address] [place] [id number] [phone] (1) In 3 days 07/10/2023 With: Address: When: Peggy Nazario [address] [address] (1) In 3 days 07/10/2023 In the event that this physician does not participate in your insurance network, please consult with your insurance company to find a nearby participating provider. Patient Education Materials: Managing Anxiety, Adult; Atrial Fibrillation A MESSAGE TO ALL PATIENTS REGARDING OPIOIDS PRESCRIPTION OPIOIDS: WHAT YOU NEED TO KNOW Prescription opioids can be used to help relieve rirtwqfi-gu-hadisr pain and are often prescribed following a [...] addiction, tel (more content not included)... Normal [facility] HEMATOLOGYOrdered By: SYSTEM SYSTEM on 07-07-2023 Basophils/100 WBC (Bld) 0.6 % Normal 0.0 - 2.0 % [facility] HemeAutoSS Basophils/Leukocytes Auto (Bld) [Pure # fraction] [...] 4.5 E12/L Normal 4.3 - 5.9 E12/L [facility] HemeAutoSS WBC corrected for nucl RBC Auto (Bld) [#/Vol] 8.0 E9/L Normal 4.0 - 11.0 E9/L [facility] [facility] [employer] Insurance Correspondence Off iceon 07-07-2023 Insurance Correspondence Office [id number]#1 .00TIFF Normal [facility] Monitor Recordon 07-07-2023 Monitor Record [id number]# 1.00TIFF Normal [facility] Monitor Record [id number]# 1.00TIFF Normal [facility] Monitor Record [id number]# 1.00TIFF Normal [facility] PT & PTTon 07-07-2023 aPTT Coag (PPP) [Time] 28.4 second(s) Normal 25.1-36.5 [facility] Comment on above: Result Comment: Para [...] the same coagulation reagent and instrumentation as [facility]. Currently there are no coagulation studies available worldwide for children to 14 days, and no normal ranges. Heparin therapeutic range (represented by Anti-Factor Xa activity of 0.2 - 0.4 U/mL) corresponds to PTT of 56.6 - 109.0 sec. Performed By: #### 2 140887, 08127364, 5422460, 0208078, 4942510, 1392423 #### [facility] [address] [place] [address] INR Coag (PPP) [Relative time] 1.0 {INR} Invalid Interpretation Code [facility] Comment on above: Result Comment: INR results are specifically intended to assess patients stabilized on long-term Anticoagulation therapy suggested INR?s ?Less Intensive Anticoagulation? 2.0 ? 3.0 Conventional Range 3.0 ? 4.5 Performed By: #### 2 670732, 18418990, 5683169, 2237656, 4360090, 4602791 #### [facility] [address] [place] [address] PT Coag (PPP) [Time] 11.3 second(s) Normal 9.4-12.5 [facility] Comment on above: Result Comment: 15 [...] the same coagulation reagent and instrumentation as [facility]. Currently there are no coagulation studies available worldwide for children to 14 days, and no normal ranges. Performed By: #### 2 000884, 19321985, 4501288, 9457870, 5801685, 9361270 #### [facility] [address] [place] [address] Troponin 0 Hr.on 07-07-2023 Troponin I.cardiac [Mass/Vol] 39.60 pg/mL Abnormal 10.10-27.10 [facility] Comment on above: Result Comment: Crit [...] conjunction with clinical conditions of myocardial infarction. ([employer] High Sensitivity Troponin I Instructions For Use, [employer]ot[employer]edia, March 2018) Performed By: #### 2 961130, 20264922, 9950394, 9161063, 6929820, 2897224 #### [facility] [address] [place] [address] Troponin 3 Hr.on 07-07-2023 Troponin I.cardiac [Mass/Vol] 42.10 pg/mL Abnormal 10.10-27.10 [facility] Comment on above: Result Comment: Crit [...] conjunction with clinical conditions of myocardial infarction. ([employer] High Sensitivity Troponin I Instructions For Use, [employer]otopedia, March 2018) Performed By: #### 1 [id number] ####[facility] [address] [place] [address] XR Chest Single Viewon 07-07 XR Chest [...] mGy = na DAP = na Normal [facility] eGFRon 07-07-2023 GFR/1.73 sq M.predicted among non-blacks MDRD (S/P/Bld) [Vol rate/Area] 77 mL/min/1.73 m2 Normal >=59 [facility] Comment on above: Order Comment: Order added by Discern Expert. Result Comment: Contract Mail Carrier luis kidney disease could be indicated at eGFR's of less than 60 mL/min/1.73m2. Kidney failure is indicated at less than 15 mL/min/1.73m2. Performed By: #### 2 247513, 09253424, 9941165, 4547235, 3863784, 4511717 #### [facility] [address] [place] [address] BMPon 07-06-2023 Anion gap [Moles/Vol] 5 mmol/L Low 6-16 [facility] Comment on above: Performed By: #### 2 779156, 01612471, 2595888, 0675525, 9918730, 5682352 #### [facility] [address] [place] [address] Calcium [Mass/Vol] 8.0 mg/dL Low 8.9-11.1 [facility] Comment on above: Performed By: #### 2 583433, 81532582, 6107754, 2535615, 4672981, 8529860 #### [facility] [address] [place] [address] Chloride [Moles/Vol] 109 mmol/L Normal 101-111 [facility] Comment on above: Performed By: #### 2 852845, 81851282, 2796620, 9408838, 0782733, 2759579 #### [facility] [address] [place] [address] CO2 [Moles/Vol] 28 mmol/L Normal 21-31 [facility] Comment on above: Performed By: #### 2 027105, 99324792, 3626111, 0327833, 7134322, 6879375 #### [facility] [address] [place] [address] Creatinine [Mass/Vol] 0.7 mg/dL Normal 0.5-1.3 [facility] Comment on above: Performed By: #### 2 076329, 80446032, 5413471, 7445997, 6051679, 6464174 #### [facility] [address] [place] [address] Glucose [Mass/Vol] 91 mg/dL Normal 55-199 [facility] Comment on above: Result Comment: If t his glucose result represents a fasting glucose, interpretation should refer to the following reference range: 55-99 mg/dL Performed By: #### 2 133846, 50702469, 1673873, 8189256, 2178177, 9553032 #### [facility] [address] [place] [address] Potassium [Moles/Vol] 3.9 mmol/L Normal 3.5-5.3 [facility] Comment on above: Performed By: #### 2 842007, 16908932, 9479856, 5567619, 1716337, 5125195 #### [facility] [address] [place] [address] Sodium [Moles/Vol] 138 mmol/L Normal 135-145 [facility] Comment on above: Performed By: #### 2 314939, 85005376, 5451535, 0474495, 5649516, 7805564 #### [facility] [address] [place] [address] Urea nitrogen [Mass/Vol] 12 mg/dL Normal 5-21 [facility] Comment on above: Performed By: #### 2 564831, 95456515, 6844481, 8031011, 6728097, 5907826 #### [facility] [address] [place] [address] Urea nitrogen/Creatinine [Mass ratio] 17 No Units Normal 10-20 [facility] Comment on above: Performed By: #### 2 442095, 68849529, 7774534, 9658342, 3761271, 1604019 #### [facility] [address] [place] [address] CHEMISTRYOrdered By: SYSTEM SYSTEM on 07-06-2023 Anion gap [Moles/Vol] 5 mmol/L Low 6 - 16 mEq/L F C Rem[facility] Calcium [Mass/Vol] 8.0 mg/dL Low 8.9 - 11. 1 mg/dL [facility] Chloride [Moles/Vol] 109 mmol/L Normal 101 - 1 11 mmol/L [facility] CO2 [Moles/Vol] 28 mmol/L Normal 21 - 31 mmol/L [facility] Creatinine [Mass/Vol] 0.7 mg/dL Normal 0.5 - 1.3 mg/dL [facility] GFR/1.73 sq M.predicted among non-blacks MDRD (S/P/Bld) [Vol rate/Area] 90 mL/min/1.73 m2 Normal >=59mL/min/1 .73 m2 [facility] Chem S Comment on above: Interpretive Data: C hronic kidney disease could be indicated at eGFR's of less than 60 mL/min/1.73m2. Kidney failure is indicated at less than 15 mL/min/1.73m2. Glucose [Mass/Vol] 91 mg/dL Normal 55 - 199 mg/dL [facility] Comment on above: Interpretive Data: I f this glucose result represents a fasting glucose, interpretation should refer to the following reference range: 55-99 mg/dL Potassium [Moles/Vol] 3.9 mmol/L Normal 3.5 - 5.3 mmol/L [facility] Sodium [Moles/Vol] 138 mmol/L Normal 135 - 145 mmol/L [facility] Urea nitrogen [Mass/Vol] 12 mg/dL Normal 5 - 21 mg/dL [facility] Urea nitrogen/Creatinine [Mass ratio] 17 mg/mg Normal 10 - 20 [facility] Remisol Discharge Note-Nursingon Discharge Note-Nursing ASYA ASENCIO I :1950 Visit Date:07/02/2023 Inpatient Discharge Instructions Your Care Team Admitting Physician - ABDI LINDSEY, Noman Morgan Consulting Physician - DYLAN MCMAHON, Cody Goff MD, Eb Yeh [facility] Cardio, XXXX Reason for Your Visit I [...] mils per day fluid restriction Pharmacy Information [facility] Previously Scheduled Follow-Up Appointments Monday 1:00 PM EDT With: CECILIA MCMAHON, Micheline Morgan Where: [facility] Inpatient Clinical Summaryon 07-06-2023 Inpatient Clinical Summary [address] [address] Clinical Summary Person Information: Name: ASYA ASENCIO I Age: 73 Years : 1950 Sex: Female PCP: Aravind MCMAHON, Peggy Mcmillan Marital Status: Race: White Ethnicity: Non- or Language: Guinean Visit Id: Visit Reason: Genitourinary problem; 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 Speciality: Acuity: Enc Type: Observation Med Service: Medical Arrival: 07/02/2023 21:17:31 Discharge: Dispo Type: Admitted as IP to this [facility] Address: [address] [place] [address] [address] [facility] [id number] Provider Notes: Diagnosis: 1:Atrial fibrillation with RVR; [...] PATTON DO Consulting Physician: Shell MCMAHON, Eb Yeh; DYLAN MCMAHON, Cdoy Dumont; [facility] Cardio, XXXX Referring Physician: Follow up: With: Address: When: [place] [id number] (1) Within 2 weeks Comments: Call for followup appointment With: Address: When: Peggy Nazario [address] [place] [address] (1) 07/10/2023 1:00 PM With: Address: When: Micheline BROOKS [facility], [address] [place] [address] Business (1) Comments: Call for followup appointment re: the indwelling Robles catheter. Type Location Start Finish [facility] Office Visit [facility] WILL Silva 11/22/2023 1:00 PM 11/22/2023 1:15 PM Confirmed Patient Education Information: CV - Cardiovascular Discharge Instructions (Custom) [facility] Inpatient Patient Summaryon 07-06-2023 Inpatient Patient Summary [address] [address] Patient Discharge Instructions PERSON INFORMATION [...] Follow up: With: Address: When: Johan HENRIQUEZ [address] [place] [phone] Business (1) Within 2 weeks Comments: Call for followup appointment With: Address: When: Peggy Nazario [address] [place] [address] Business (1) 07/10/2023 1:00 PM With: Address: When: Micheline CECILIA [facility], [address], [place] [address] Business (1) Comments: Call for followup appointment re: the indwelling Robles catheter. In the event that this physician does not participate in your insurance network, please consult with your insurance company to find a nearby participating provider. Type Location Start Finish [facility] Office Visit [facility] WILL Shira 11/22/2023 1:00 PM 11/22/2023 1:15 PM Confirmed Comment: ELIF Ruiz JOYCE I, have received the attached patient education materials/instruction s and have verbalized understanding: Patient Signature Date Clinican/Nurse Signature Date HERE ARE THE MEDICATION CHANGES THAT OCCURRED DURING YOUR HOSPITAL STAY New Medications [id number], [address], [place] [id number], [phone] apixaban (Eliquis 5 mg oral tablet) 1 [...] a day. Refills (more content not included)... 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 Serrato. Await cardiology to see and anticipate DC home later today. Declines any concerrns or DC needs. Brilinta was priced out yesterday $183 and coupon provided. . PCP verified and insurance information reviewed and DME discussed. Contact information provided and white board updated. [facility] Comment on above: Result Comment: Elec tronically Signed By: Martín ALFORD, Radha\.zak\Date and Time Signed: 07/06/23 12:06 EST Monitor Recordon 07-06-2023 Monitor Record [id number]# 1.00TIFF [facility] Monitor Record [id number]# 1.00TIFF [facility] Monitor Record [id number]# 1.00TIFF [facility] Progress Note-Physicianon Progress Note-Physician Assessment/Plan 73-year-old female with history of ureteral stricture with previous dilations, anxiety disorder presented with complaints of urinary hesitancy, constipation, cough and shortness of breath and was admitted to [facility] with acute paroxysmal atrial fibrillation with [...] IV Cardizem drip. Continue on Coreg, digoxin. Eyeletter debating on starting patient on amiodarone. Eliquis to start in 4 days after cardiac catheterization. [facility]/Day Moderate 35 Minutes [id number] 2. Acute systolic congestive heart failure (I50.21: Acute systolic (congestive) heart failure) Acute systolic congestive heart failure?present on admission. Seen by monorail hooker and underwent cardiac catheterization that showed mild coronary artery disease. Also shows severe mitral regurgitation and tricuspid regurgitation with ejection fraction of 30 to 35%. Continue on aspirin, Coreg, losartan and Lasix. Ordered: [facility] Hospital Care/Day Moderate 35 Minutes 84058 3. Severe mitral regurgitation (I34.0: Nonrheumatic mitral (valve) insufficiency) As seen on cardiac catheterization. Patient will follow-up with monorail hooker for HAROON and then valvular repair. Eyeletter also considering transferring patient to or [facility]. Ordered: [facility] Care/Day Moderate 35 Minutes 19456 4. Elevated troponin (R79.89: Other specified abnormal findings of blood chemistry) Secondary to type II non-ST segment elevation myocardial infarction from above and mild coronary artery disease.. Seen by monorail hooker and underwent cardiac catheterization that showed mild coronary artery disease. Continue on aspirin, Lipitor, and Coreg. Ordered: [facility] Hospital Care/Day Moderate 35 Minutes 41741 5. Mild coronary artery disease (I25.10: Atherosclerotic heart disease of [place] coronary artery without angina pectoris) As seen on cardiac catheterization on 07/05/2023. Continue on Lipitor and aspirin. Ordered: [facility] Hospital Care/Day Moderate 35 Minutes 67975 6. 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 Eliquis to resume in 4 days. Disposition: Home soon today if heart rate is under good control with plans to follow-up with monorail hooker and urologist as outpatient. However if heart rate is still elevated then we will call [facility] or [facility] to see if we can transfer patient for valve repair/replacement. I discussed the diagnosis and plan of care with the patient at the bedside. Moderate level of MDM based on addressing above issues. This documentation was transcribed using voice recognition software. Several attempts were made to ensure accuracy. However inadvertent computerized tank wagon operator errors may be present. Nahid Serrato. Hospitalist. [...] Panel eGF (more content not included)... Normal [facility] Comment on above: Result Comment: Elec tronically Signed By: JAZMÍN MCMAHON, Yosifo\.br\Date and Time Signed: 07/06/23 11:56 EST Progress [...] she is going to get to the [facility] or [facility] for mitral valve/tricuspid valve surgery. Despite all [...] transfer the patient directly to the [facility] or [facility] given her logistic challenges with getting [...] artery disease (I25.10: Atherosclerotic heart disease of [place] coronary artery without angina pectoris) 6. Pleural effusion (J90: Pleural effusion, not elsewhere classified) 7. Urinary hesitancy (R39.11: Hesitancy of micturition) 8. Other urethral stricture, female (N35.82: Oth (more content not included)... Normal [facility] Comment on above: Result Comment: Elec tronically Signed By: MARTINEZ MCMAHON, Johan Patino\.zak\Date and Time Signed: 07/06/23 09:22 EST eGFRon 07-06-2023 GFR/1.73 sq M.predicted among non-blacks MDRD (S/P/Bld) [Vol rate/Area] 90 mL/min/1.73 m2 Normal >=59 [facility] Comment on above: Order Comment: Order Added by Discern Expert. Result Comment: Contract Mail Carrier luis kidney disease could be indicated at eGFR's of less than 60 mL/min/1.73m2. Kidney failure is indicated at less than 15 mL/min/1.73m2. Performed By: #### 2 328663, 04439944, 1835906, 1910675, 3209410, 5103526 #### [facility] [address] [place] [address] BMPon 07-05-2023 Anion gap [Moles/Vol] 9 mmol/L Normal 6-16 [facility] Comment on above: Performed By: #### 1 4054784, 1965481 ####[facility] [address] [place] [address] Calcium [Mass/Vol] 8.2 mg/dL Low 8.9-11.1 [facility] Comment on above: Performed By: #### 1 1648303, 7091958 ####[facility] [address] [place] [address] Chloride [Moles/Vol] 105 mmol/L Normal 101-111 [facility] Comment on above: Performed By: #### 1 3062386, 4740840 ####[facility] [address] [place] [address] CO2 [Moles/Vol] 27 mmol/L Normal 21-31 [facility] Comment on above: Performed By: #### 1 5331515, 9031008 ####[facility] [address] [place] [address] Creatinine [Mass/Vol] 0.7 mg/dL Normal 0.5-1.3 [facility] Comment on above: Performed By: #### 1 9273824, 6758781 ####[facility] [address] [place] [address] Glucose [Mass/Vol] 115 mg/dL Normal 55-199 [facility] Comment on above: Result Comment: If t his glucose result represents a fasting glucose, interpretation should refer to the following reference range: 55-99 mg/dL Performed By: #### 1 9430241, 0780116 ####[facility] [address] [place] [address] Potassium [Moles/Vol] 4.3 mmol/L Normal 3.5-5.3 [facility] Comment on above: Performed By: #### 1 3668861, 0556044 ####[facility] [address] [place] [address] Sodium [Moles/Vol] 137 mmol/L Normal 135-145 [facility] Comment on above: Performed By: #### 1 1809464, 6240340 ####[facility] [address] [place] [address] Urea nitrogen [Mass/Vol] 13 mg/dL Normal 5-21 [facility] Comment on above: Performed By: #### 1 7156879, 3433636 ####[facility] [address] [place] [address] Urea nitrogen/Creatinine [Mass ratio] 19 No Units Normal 10-20 [facility] Comment on above: Performed By: #### 1 0560010, 8141267 ####[facility] [address] [place] [address] CHEMISTRYOrdered By: SYSTEM SYSTEM on 07-05-2023 Anion gap [Moles/Vol] 9 mmol/L Normal 6 - 16 mEq/L F [facility] Remisol Calcium [Mass/Vol] 8.2 mg/dL Low 8.9 - 11. 1 mg/dL [facility] Remisol Chloride [Moles/Vol] 105 mmol/L Normal 101 - 1 11 mmol/L [facility] Remisol CO2 [Moles/Vol] 27 mmol/L Normal 21 - 31 mmol/L [facility] Remisol Creatinine [Mass/Vol] 0.7 mg/dL Normal 0.5 - 1.3 mg/dL [facility] Remisol GFR/1.73 sq M.predicted among non-blacks MDRD (S/P/Bld) [Vol rate/Area] 90 mL/min/1.73 m2 Normal >=59mL/min/1 .73 m2 [facility] Chem S Comment on above: Interpretive Data: C hronic kidney disease could be indicated at eGFR's of less than 60 mL/min/1.73m2. Kidney failure is indicated at less than 15 mL/min/1.73m2. Glucose [Mass/Vol] 115 mg/dL Normal 55 - 199 mg/dL [facility] Comment on above: Interpretive Data: I f this glucose result represents a fasting glucose, interpretation should refer to the following reference range: 55-99 mg/dL Potassium [Moles/Vol] 4.3 mmol/L Normal 3.5 - 5.3 mmol/L [facility] Remisol Sodium [Moles/Vol] 137 mmol/L Normal 135 - 145 mmol/L [facility] Remisol Urea nitrogen [Mass/Vol] 13 mg/dL Normal 5 - 21 mg/dL [facility] Remisol Urea nitrogen/Creatinine [Mass ratio] 19 mg/mg Normal 10 - 20 [facility] CHEMISTRYOrdered By: Lab ROP User on 07-05-2023 Glucose [Mass/Vol] 79 mg/dL Normal 55 - 99 mg/dL [facility] POC Subsection Comment on above: Result Comment: Neli cain RN/ POC Username NIKHIL PAULSON Invalid Interpretation Code [facility] POC Subsection Sodium [Moles/Vol] 807795666297 mmol/L Invalid Interpretation Code [facility] POC Subsection Sodium [Moles/Vol] 908441952 mmol/L Invalid Interpretation Code [facility] POC Subsection Capillary Glucose POCon 06-15 Glucose [Mass/Vol] 79 mg/dL Normal 55-99 [facility] Comment on above: Result Comment: Neli PIÑA Performed By: #### 1 [id number] #### [facility] [address] [place] [address] Cardiovascular Reporton 06-15 Cardiovascular Report [id number]# 1.00TIFF Normal [facility] Monitor Recordon 07-05-2023 Monitor Record [id number]# 1.00TIFF Normal [facility] Monitor Record [id number]# 1.00TIFF Normal [facility] Monitor Record [id number]# 1.00TIFF Normal [facility] Monitor Record [id number]# 1.00TIFF Normal [facility] Monitor Record [id number]# 1.00TIFF Normal [facility] Operative Reporton Operative Report SURGERY DATE: 07/05/2023 [...] an exchange length J-wire. Next a 4 Italian sheath was placed without complications and flushed with heparinized saline. Next the right femoral vein was accessed with a single anterior stick of a Cook needle followed by placement of a short J-wire under fluoroscopic guidance. Next a 7 Italian sheath was placed without complications and flushed with heparinized saline. Next a balloon tip Stacy-Lois catheter was advanced under fluoroscopic guidance into [...] by thermal was 2.57. Next a 4 Italian angled pigtail catheter was easily advanced into the left ventricular chamber. AO saturation was 84%. PA saturation was 46%. Simultaneous LV and wedge pressure demonstrated a large V wave indicating severe mitral regurgitation. Simultaneous LV and RV pressures demonstrated no overt evidence of pericardial constriction although the patient is in atrial fibrillation making that somewhat problematic. Stacy-Lois catheter was then removed. The LV angiogram performed in the 30 degree right anterior oblique position demonstrated severe global LV dysfunction with an ejection fraction around 25-30%. There was severe mitral regurgitation which completely filled the left atrium after the second beat. There was no significant gradient seen on pullback. Next the pigtail catheter was exchanged over a wire for a 4 Italian JL5 catheter. This was easily engaged into [...] exchanged over a wire for a 4 Italian 3DRC catheter. This was easily engaged into the right coronary artery. There was no dampening or ventricularization upon engagement. Right coronary artery: The right coronary artery is a moderate size dominant vesse (more content not included)... Normal [facility] Comment on above: Result Comment: Elec tronically Signed By: MARTINEZ MCMAHON, Johan Ribeiro.zak\Date and Time Signed: 07/05/23 11:46 EST Progress Note-Nurseon 2022 Progress Note-Nurse brush clearing laborer made aware patient last dose of lovenox was given on 07/04/23 @ 2345. Normal [facility] Progress Note-Physicianon Progress Note-Physician Assessment/Plan 73-year-old female with history of ureteral stricture with previous dilations, anxiety disorder presented with complaints of urinary hesitancy, constipation, cough and shortness of breath and was admitted to [facility] with acute paroxysmal atrial fibrillation with [...] date 07/06/23 9:00:00 EST, 07/05/23 11:13:00 EST [facility] Hospital Care/Day Moderate 35 Minutes 21711 2. Acute systolic congestive heart failure (I50.21: Acute systolic (congestive) heart failure) Acute systolic congestive heart failure?present on admission. Seen by monorail hooker. She is status post cardiac catheterization that showed mild coronary artery disease. Also showed severe mitral regurgitation and tricuspid regurgitation.. Ejection fraction of 30 to 35%. Continue on aspirin, Coreg, losartan, Lasix. Ordered: [facility] Hospital Care/Day Moderate 35 Minutes 07727 3. Severe mitral regurgitation (I34.0: Nonrheumatic mitral (valve) insufficiency) Severe mitral regurgitation?seen on cardiac catheterization. Follow-up with monorail hooker as outpatient for HAROON and then valvular repair. Ordered: [facility] Hospital Care/Day Moderate 35 Minutes 84220 4. Elevated troponin (R79.89: Other specified abnormal findings of blood chemistry) Secondary to type II non-ST segment elevation myocardial infarction from above and mild coronary artery disease.. Seen by monorail hooker and underwent cardiac catheterization that showed mild coronary artery disease. Continue on aspirin, Lipitor, and Coreg. Ordered: furosemide, 40 mg = 1 tab(s), Tab, Oral, Daily, Routine, Start date 07/06/23 9:00:00 EST, 07/05/23 11:13:00 EST [facility] Hospital Care/Day Moderate 35 Minutes 37036 5. Mild coronary artery disease (I25.10: Atherosclerotic heart disease of [place] coronary artery without angina pectoris) As seen on cardiac catheterization on 07/06/2023. Continue on Lipitor and aspirin. Ordered: [facility] Hospital Care/Day Moderate 35 Minutes 63103 6. 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 Disposition: Home in a.m. to follow-up with monorail hooker and urologist. I discussed the diagnosis and plan of care with the patient at the bedside. Moderate level of MDM based on addressing above issues. This documentation was transcribed using voice recognition software. Several attempts were made to ensure accuracy. However inadvertent computerized tank wagon operator errors may be present. Nahid Serrato. Hospitalist. Orders: Basic Metabolic Panel Basic Metabolic Panel Referral to [facility] Subjective Seen and examined. Offers no complaints today. Completed cardiac catheterization today. Offers no new complaints. Objective Vitals & Measurements T: 36.7 ?C(Axillary) TMIN: 36.5 ?C(Oral) TMAX: 36.9 ?C(Axillary) HR: 89(Monitored) BP: 102/64 SpO2: 97% HT: 165.10 cm WT: 58.4 kg Intake & Output This (more content not included)... Normal [facility] Comment on above: Result Comment: Elec tronically Signed By: JAZMÍN MCMAHON, Nahid\.br\Date and Time Signed: 07/05/23 11:19 EST eGFRon 07-05-2023 GFR/1.73 sq M.predicted among non-blacks MDRD (S/P/Bld) [Vol rate/Area] 90 mL/min/1.73 m2 Normal >=59 [facility] Comment on above: Order Comment: Order added by Discern Expert. Result Comment: Contract Mail Carrier luis kidney disease could be indicated at eGFR's of less than 60 mL/min/1.73m2. Kidney failure is indicated at less than 15 mL/min/1.73m2. Performed By: #### 1 [id number], [id number] ####[facility] [address] [place] [address] Monitor Recordon 07-04-2023 Monitor Record [id number]# 1.00TIFF Normal [facility] Monitor Record [id number]# 1.00TIFF Normal [facility] Monitor Record [id number]# 1.00TIFF Normal [facility] Monitor Record [id number]# 1.00TIFF Normal [facility] Patient Education - Texton 1 09-03-2022 Patient Education - Text Normal [facility] Progress Note-Physicianon Progress Note-Physician Assessment/Plan 73-year-old female with history of ureteral stricture with previous dilations, anxiety disorder presented with complaints of urinary hesitancy, constipation, cough and shortness of breath and was admitted to [facility] with acute paroxysmal atrial fibrillation with [...] BID, # 60 tab(s), Refills(s) 0, Pharmacy: [facility] #[id number], 165, cm, 07/02/23 21:30:00 EST, Height/Length Dosing, 55.7, kg, 07/02/23 21:30:00 EST, Weight Dosing Echo Tran[facility]horacic [facility] Care/Day Moderate 35 Minutes 76428 2. Acute systolic congestive heart failure (I50.21: Acute systolic (congestive) heart failure) Acute systolic congestive heart failure?present on admission. Cardiology is following. Ejection fraction of 30 to 35%. Cardiology is planning on cardiac catheterization for ischemic work-up in AM. Meanwhile continue on aspirin, Coreg, losartan. We will verify with monorail hooker about Lasix. Ordered: [facility] Care/Day Moderate 35 Minutes 15231 3. Elevated troponin (R79.89: Other specified abnormal findings of blood chemistry) Secondary to type II non-ST segment elevation myocardial infarction from above. Echocardiogram shows ejection fraction of 30 to 35%. Eyeletter following with plans for cardiac catheterization in AM. Meanwhile continue on aspirin and Coreg. Ordered: Echo Transthoracic Complete [facility] Hospital Care/Day Moderate 35 Minutes 07815 4. Pleural effusion (J90: Pleural effusion, not elsewhere classified) Small pleural effusion?secondary to acute systolic congestive heart failure. Supportive care. Lasix as needed. Ordered: [facility] Hospital Care/Day Moderate 35 Minutes 82518 5. Urinary hesitancy (R39.11: Hesitancy of micturition) Secondary to urethral stricture and urinary retention. She is status post Robles catheter placement. Urology consult reviewed by me. I appreciate and agreed recommendations. Patient will discharge with Robles catheter and leg bag to follow-up with urologist as outpatient. Ordered: [facility] Hospital Care/Day Moderate 35 Minutes 01755 6. Other urethral stricture, female (N35.82: Other [...] Daily, NOW, Start date 07/03/23 11:16:00 EST [facility] Hospital Care/Day Moderate 35 Minutes 12172 9. 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 Disposition: Pending cardiac catheterization in AM. I discussed the diagnosis and plan of care with the patient at the bedside. I also spoke with the patient's daughter Mandeep over the phone. Moderate level of MDM based on addressing above issues. This documentation was transcribed using voice recognition software. Several attempts were made to ensure accuracy. However inadvertent computerized tank wagon operator errors may be present. Nahid Serrato. Hospitalist. [...] -- 176.8 (more content not included)... Normal [facility] Comment on above: Result Comment: Elec [...] deep vein thrombosis (DVT) prophylaxis (Z79.899: Other petroleum terminal plant operator (current) drug therapy) Urinary retention (R33.9: Retention [...] PRN f (more content not included)... Normal [facility] Comment on above: Result Comment: Elec tronically Signed By: MARTINEZ MCMAHON, Johan Ribeiro.br\Date and Time Signed: 07/04/23 08:04 EST CHEMISTRYOrdered [...] Sensitivity Troponin I Instructions For Use, Marlys Pearce, March 2018) TSH Qn 3.83 m[IU]/L Normal 0.34 - 5.60 mcIU/mL [facility] Remisol CHEMISTRYOrdered By: Dulce Maria Correa on 07-03-2023 HbA1c (Bld) [Mass fraction] 5.5 % Normal <=5.9% FT [facility] Consultation Noteon 07-03-20 Consultation Note Patient: ASYA ASENCIO I Age: 73 years Sex: Female : 1950 Associated Diagnoses: None Author: DYLAN MCMAHON, Cody Dumont Chief Complaint For consultation on this 73-year-old [...] day(s), # 14 cap(s), Refills(s) 0, Pharmacy: [facility] #[id number], 165, cm, 06/30/23 19:37:00 EST, Height/Length Dosing, 55.7, kg, 06/30/23 19:37:00 EST, Weight Dosing Cipro 500 mg Tab: 500 mg = 1 tab(s), Oral, As Directed, Patient to take 1 tab the day before procedure and the 2nd tab the day of procedure once completed, # 2 tab(s), Refills(s) 0, Pharmacy: [facility] #[id number], 165, cm, 04/26/23 15:23:00 EDT, Height/Length Do... Estrace 0.1 mg/g Cream: 0.5 gm, Vaginal, MonFri, 42.5 gm, Refill(s) 6 Zofran ODT 4 mg Tab-Dis: 4 mg = 1 tab(s), Oral, q8hr, # 12 tab(s), Refills(s) 0, Pharmacy: [facility] #[id number], 165, cm, 06/30/23 19:37:00 EST, Height/Length Dosing, 55.7, kg, 06/30/23 19:37:00 EST, Weight Dosing Documented Medications Documented Ativan 0.5 mg Tab: 0.5 mg = 1 tab(s), Oral, TID, PRN as needed for anxiety, Refills(s) 0 Problem list: All Problems acid reflux / SNOMED CT 214399895 / Confirmed anxiety / SNOMED CT 53849506 / Confirmed Injury of nose / SNOMED CT 56484076 / Confirmed Superficial laceration of face / SNOMED CT 960180155 / Confirmed Acute gastroenteritis / SNOMED CT 506398228 / Confirmed Other urethral stricture, female / SNOMED CT 869049886 / Confirmed Nocturia / SNOMED CT 748094096 / Confirmed Urinary hesitancy / SNOMED CT 170534794 / Confirmed Former smoker / SNOMED CT 78145048 / Confirmed Urinary frequency / SNOMED CT 042087565 / Confirmed Feeling of incomplete bladder emptying / SNOMED CT 787227570 / Confirmed Urinary urgency / SNOMED CT 537865922 / Confirmed Dysuria / SNOMED CT 61336320 / Confirmed Suprapubic pain / SNOMED CT 902234654 / Confirmed Poor urinary stream / SNOMED CT 673555859 / Confirmed Cystocele with prolapse / SNOMED CT 573103899 / Confirmed Stranguria / SNOMED CT 347590273 / Confirmed History of urethral stricture / SNOMED CT 897399931 / Confirmed Weak urine stream / SNOMED CT 649532765 / Confirmed Atrophic vaginitis / SNOMED CT 86085715 / Confirmed Renal lesion / SNOMED CT 3338125991 / Confirmed Histories Past Medical History: Active acid reflux (558914831) anxiety (74183741) Acute gastroenteritis (284188841) Family History: Heart disease Father Diabetes mellitus type 2 Mother Procedure history: Cystourethroscopy with dilation of urethral stricture (907980745) on 10/25/2022 at 72 Years. Cystoscopy/UD (83789420) on 02/23/2021 at 70 Years. Dilation of urethra (62725631) on 02/01/2019 at 68 Years. Cysto/ UD (221869598) on 10/10/2017 at 67 Years. Hysterectomy. colon resection. Corneal implant (788055459). Tonsillectomy (118051594). Dilation of urethra (02207135). Comments: 08/09/2019 13:23 EST - Darshan SALAS, Tim Velazco (more content not included)... Normal [facility] Comment on above: Result Comment: Elec tronically Signed By: DYLAN MCMAHON, Cody Dumont\.br\Date and Time Signed: 07/03/23 19:12 EST ED Clinical Summaryon 2022 ED Clinical Summary [place] [address] ED Clinical Summary Person Information Name: ASYA ASENCIO I Patricia/[facility] Age: 73 Years : 1950 Sex: Female Language: Guinean PCP: Peggy Nazario MD Marital Status: Visit Id: Visit Reason: Genitourinary problem; 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 Speciality: Acuity: 3 Enc Type: Observation Med Service: Emergency Arrival: 07/02/2023 21:17:31 Discharge: LOS: 000 05:33 Checkin: 07/02/2023 21:17:31 Checkout: 07/03/2023 02:50:11 Dispo Type: Admitted as IP to this [facility] EVENTS: Event Name Event Status Request Date/Time [...] 07/03/2023 02:36:18 07/03/2023 02:36:18 07/03/2023 02:36:19 ADDRESS: [address] [place] [address] [address] [facility] [id number] PHYS DOC NOTES: MEDICAL INFORMATION: Prescriptions Given: [...] RVR; 3:New onset a-fib; 4:Elevated troponin Normal [facility] ED Note-Physicianon 07-03-20 ED Note-Physician Basic [...] and Complexity of Problems Differential Diagnosis: [] [facility] Data External documents reviewed: [] [...] 0.9% intrave (more content not included)... Normal [facility] Comment on above: Result Comment: Elec tronically Signed By: Layton Crawford M.D.\.zak\Date and Time Signed: 07/03/23 08:17 EST ED Patient Education Noteon 07-03-2023 ED Patient Education Note Normal [facility] ED Patient Summaryon 023 ED Patient Summary [place] [id number] Patient Discharge Instructions Person Information Name: ASYA ASENCIO I Age: 73 Years Arrival Date: 07/02/2023 21:17:31 Discharge Diagnosis: 1:Urinary hesitancy; 2:Atrial fibrillation with RVR; 3:New onset a-fib; 4:Elevated troponin Primary Care Physician: Peggy Nazario MD Provider Information Primary Provider: Layton Crawford M.D. Advanced Wood Setter:None The exam and treatment you received in the Emergency Department were for an urgent problem and are not intended as complete care. It is important that you follow up with a doctor, nurse practitioner, or physician?s field assistant for ongoing care. If your symptoms become [...] opioids can be used to help relieve iruxedpl-lp-yegcep pain and are often prescribed following a [...] be struggling with addiction, tell your health certified social workers in health care and ask for guidance or call SAMHSA?S National Helpline at 9-110-838-ERHQ. v Source: [place] Department of Health and Human Services/Center for Disease Control & Prevention [facility] (more content not included)... Normal [facility] Hep Func Panelon 07-03-2023 Albumin [Mass/Vol] 3.8 g/dL Normal 3.3-5.0 [facility] Comment on above: Performed By: #### 1 [id number], 9388182, 0581993, 8890698, 2627718, 88116874, 7899350 ####[facility] [address] [place] [address] Albumin/Globulin (S) [Mass conc ratio] 1.3 Normal 1.1-2.2 [facility] Comment on above: Performed By: #### 1 0568787, 6260574, 2234098, 3860687, 1910600, 74299287, 1024784 ####[facility] [address] [place] [address] ALP [Catalytic activity/Vol] 58 Int._Unit/L Normal 21-98 [facility] Comment on above: Performed By: #### 1 6201508, 6564631, 2133532, 1886575, 9919411, 41617026, 7445223 ####[facility] [address] [place] [address] ALT No additional P-5'-P [Catalytic activity/Vol] 66 Int._Unit/L High 6-46 [facility] Comment on above: Performed By: #### 1 9000211, 0249507, 5726497, 7629037, 1284284, 76910623, 8033291 ####[facility] [address] [place] [address] AST [Catalytic activity/Vol] 81 Int._Unit/L High 5-43 [facility] Comment on above: Performed By: #### 1 5697407, 9255719, 3465237, 3444664, 8124888, 13871581, 3855967 ####[facility] [address] [place] [address] Bilirubin [Mass/Vol] 0.5 mg/dL Normal 0.0-1.1 [facility] Comment on above: Performed By: #### 1 4855885, 2339358, 2564061, 9139739, 8904294, 25302720, 8836392 ####[facility] [address] [place] [address] Bilirubin.direct [Mass/Vol] 0.1 mg/dL Normal 0.1-0.4 [facility] Comment on above: Performed By: #### 1 5067669, 8860006, 8238225, 8005839, 5566015, 43161075, 2735758 ####[facility] [address] [place] [address] Bilirubin.indirect [Mass or moles/Vol] 0.4 mg/dL Normal 0.1-0.9 [facility] Comment on above: Performed By: #### 1 4893894, 7160895, 4261528, 6950875, 9911496, 00538488, 3271481 ####[facility] [address] [place] [address] Globulin (S) [Mass/Vol] 2.9 g/dL Normal 1.4-4.0 [facility] Comment on above: Performed By: #### 1 6553797, 4577575, 0988554, 4984491, 3124610, 02588528, 5521155 ####[facility] [address] [place] [address] Protein [Mass/Vol] 6.7 g/dL Normal 6.0-7.8 [facility] Comment on above: Performed By: #### 1 1022801, 9111101, 3816019, 2735184, 9487525, 61029757, 5333608 ####[facility] [address] [place] [address] ErjU3xgn 07-03-2023 HbA1c (Bld) [Mass fraction] 5.5 % Normal <=5.9 [facility] Comment on above: Performed By: #### 2 020849, 97353195, 0944876, 2850562, 5465726, 5145375 #### [facility] [address] [place] [address] Interdisciplinary Note - Tico e Manageron 07-03-2023 Interdisciplinary Note - Dry Kiln Loader CRM to room to discuss DC planning. [...] updated. Anticipated DC TBD. CRM following Normal [facility] Comment on above: Result Comment: Elec tronically Signed By: Brigitte Nazario\.br\Date and Time Signed: 07/03/23 13:05 EST Lipid Panelon 07-03-2023 Cholesterol [Mass/Vol] 145 mg/dL Normal 120-200 [facility] Comment on above: Performed By: #### 2 284804, 87433680, 0655761, 8820673, 0481768, 0879023 #### [facility] [address] [place] [address] Cholesterol in HDL [Mass/Vol] 43 mg/dL Invalid Interpretation Code [facility] Comment on above: Result Comment: HDL > or equal to 60 mg/dL: Low cardiovascular risk HDL < 40 mg/dL : High cardiovascular risk Performed By: #### 2 252452, 85320327, 4692100, 7787727, 9191285, 7758135 #### [facility] [address] [place] [address] Cholesterol in LDL [Mass/Vol] 99 mg/dL Normal <=129 [facility] Comment on above: Performed By: #### 2 049369, 71983996, 4343369, 1804814, 2430164, 1418115 #### [facility] [address] [place] [address] Cholesterol in VLDL [Mass/Vol] 17 mg/dL Normal 7-40 [facility] Comment on above: Performed By: #### 2 725332, 60047923, 8788084, 6295809, 1679500, 5985425 #### [facility] [address] [place] [address] Triglyceride [Mass/Vol] 85 mg/dL Normal <=149 [facility] Comment on above: Performed By: #### 2 761408, 42603878, 6899900, 9854066, 4440310, 5693838 #### [facility] [address] [place] [address] Magnesiumon 07-03-2023 Magnesium [Mass/Vol] 2.0 mg/dL Normal 1.3-2.4 [facility] Comment on above: Performed By: #### 1 4793389, 9191207, 3924273, 1208993, 4944989, 26200912, 3019668 ####[facility] [address] [place] [address] Message from Medicareon 06-15 Message from Medicare [id number]# 1.00TIFF Normal [facility] Monitor Recordon 07-03-2023 Monitor Record [id number]# 1.00TIFF Normal [facility] Monitor Record [id number]# 1.00TIFF Normal [facility] Monitor Record [id number]# 1.00TIFF Normal [facility] Progress Note-Physicianon Progress Note-Physician Assessment/Plan 73-year-old [...] I ordered echocardiogram. Ordered: Echo Transthoracic Complete [facility] Hospital Care/Day Moderate 35 Minutes 60495 2. Elevated troponin (R79.89: Other specified abnormal findings of blood chemistry) Secondary to type II non-ST segment elevation myocardial infarction from above. Echocardiogram ordered. Cardiology consult pending. Continue on aspirin. Ordered: Echo Transthoracic Complete [facility] Hospital Care/Day Moderate 35 Minutes 27083 3. Urinary hesitancy (R39.11: Hesitancy of micturition) Secondary to urethral stricture. Patient is status post Robles catheter placement for urinary retention. She will follow-up with urologist as outpatient. Ordered: [facility] Hospital Care/Day Moderate 35 Minutes 37475 4. Constipation (K59.00: Constipation, unspecified) Started patient on MiraLAX and lactulose. Ordered: lactulose, 20 gram = 30 mL, Syrup, Oral, Once, Stop date 07/03/23 12:00:00 EST, Routine, Start date 07/03/23 12:00:00 EST, 07/03/23 12:00:00 EST polyethylene glycol 3350, 17 gram = 1 EA, Powder-Recon, Oral, Daily, Routine, Start date 07/03/23 12:00:00 EST, 07/03/23 12:00:00 EST [facility] Hospital Care/Day Moderate 35 Minutes 17124 5. Other urethral stricture, female (N35.82: Other [...] made to ensure accuracy. However inadvertent computerized tank wagon operator errors may be present. Nahid Serrato. Hospitalist. [...] 90.3 fL (07/02/23 22:10:00) MCH: 29.7 pg (11/19/23 22:10:00) MCHC: 32.9 gm/dL (07/02/23 22:10:00) RDW: 13.5 % (07/02/23 22:10:00) Platelet: 183 E9/L (07/02/23 22:10:00) MPV: 9.1 fL (07/02/23 22:10:00) Neutro Auto: 76.7 % High (07/02/23 22:10:00) Lymph Auto: 15.3 % (07/02/23 22:10:00) Wayne Auto: 7.7 % (07/02/23 22:10:00) Eos Auto: 0 % (07/02/23:10:00) Baso (more content not included)... Normal [facility] Comment on above: Result Comment: Elec tronically Signed By: JAZMÍN MCMAHON, Nahid\.br\Date and Time Signed: 07/03/23 10:57 EST TSH With T4fr Reflexon 07-03 TSH Qn 3.83 m[IU]/L Normal 0.34-5.60 [facility] Comment on above: Performed By: #### 2 958342, 96567781, 1163085, 8310415, 6784280, 5205640 #### [facility] [address] [place] [address] Troponinon 07-03-2023 Troponin I.cardiac [Mass/Vol] 27.10 pg/mL Normal 10.10-27.10 [facility] Comment on above: Result Comment: The 95% CI (Confidence Interval) PPV (Positive Predictive Value) for myocardial infarction in females is 38 pg/mL, in males 51 pg/mL. The results should be used in conjunction with clinical conditions of myocardial infarction. (Access High Sensitivity Troponin I Instructions For Use, Marlys Ariadne, March 2018) Performed By: #### 2 253099, 22197644, 6178374, 0835468, 3912147, 4185964 #### [facility] [address] [place] [address] Troponin 0 Hr.on 07-03-2023 Troponin I.cardiac [Mass/Vol] 27.30 pg/mL High 10.10-27.10 [facility] Comment on above: Result Comment: The 95% CI (Confidence Interval) PPV (Positive Predictive Value) for myocardial infarction in females is 38 pg/mL, in males 51 pg/mL. The results should be used in conjunction with clinical conditions of myocardial infarction. (Access High Sensitivity Troponin I Instructions For Use, [employer], March 2018) Performed By: #### 1 1358343, 5820968, 8267631, 1108085, 6593067, 40574380, 7709548 ####[facility] [address] [place] [address] Troponin 3 Hr.Ordered By: Jamalon on 07-03-2023 Troponin I.cardiac [Mass/Vol] 27.70 pg/mL High 10.10-27.10 [facility] Remisol Comment on above: Interpretive Data: T he 95% CI (Confidence Interval) PPV (Positive Predictive Value) for myocardial infarction in females is 38 pg/mL, in males 51 pg/mL. The results should be used in conjunction with clinical conditions of myocardial infarction. (Access High Sensitivity Troponin I Instructions For Use, [employer], March 2018) Result Comment: The 95% CI (Confidence Interval) PPV (Positive Predictive Value) for myocardial infarction in females is 38 pg/mL, in males 51 pg/mL. The results should be used in conjunction with clinical conditions of myocardial infarction. (Access High Sensitivity Troponin I Instructions For Use, [employer], March 2018) Performed By: #### 2 639751, 73793590, 3041272, 1370760, 6182549, 0989515 #### [facility] [address] [place] [address] XR Chest Single Viewon 07-03 XR Chest [...] mGy = na DAP = na Normal [facility] Auto Diffon 07-02-2023 Basophils/100 WBC (Bld) 0.3 % Normal 0.0-2.0 [facility] Comment on above: Order Comment: Order Added by Discern Expert. Performed By: #### 1 [id number], 0456051, 0174239, 2359559, 2999540, 06986819, 9863863 ####[facility] [address] [place] [address] Basophils/Leukocytes Auto (Bld) [Pure # fraction] 0.0 E9/L Normal 0.0-0.2 [facility] Comment on above: Order Comment: Order Added by Discern Expert. Performed By: #### 1 9073016, 5143665, 5125746, 0024952, 0550484, 05285479, 8773243 ####[facility] [address] [place] [address] Eosinophils/100 WBC (Bld) 0.0 % Normal 0.0-8.0 [facility] Comment on above: Order Comment: Order Added by Discern Expert. Performed By: #### 1 9046765, 7711530, 8614811, 7562384, 9471790, 59777055, 5411907 ####[facility] [address] [place] [address] Eosinophils/Leukocyte s Auto (Bld) [Pure # fraction] 0.0 E9/L Normal 0.0-0.5 [facility] Comment on above: Order Comment: Order Added by Discern Expert. Performed By: #### 1 4373410, 4818797, 5231632, 3804259, 9957764, 48331527, 3733477 ####[facility] [address] [place] [address] Lymphocytes/100 WBC (Bld) 15.3 % Normal 14.0-50.0 [facility] Comment on above: Order Comment: Order Added by Discern Expert. Performed By: #### 1 1338807, 3600892, 1385429, 8448737, 1007186, 43416908, 6315460 ####[address] [place] [address] Lymphocytes/Leukocyte s Auto (Bld) [Pure # fraction] 0.9 E9/L Low 1.0-4.0 [facility] Comment on above: Order Comment: Order Added by Discern Expert. Performed By: #### 1 2542363, 2783308, 9446721, 2591871, 5110669, 82492691, 8092056 ####[address] [place] [address] Monocytes/100 WBC (Bld) 7.7 % Normal 4.0-14.0 [facility] Comment on above: Order Comment: Order Added by Valeria Expert. Performed By: #### 1 2937183, 5066316, 3763286, 6702847, 6160353, 79390131, 2878241 ####[address] [address] Monocytes/Leukocytes Auto (Bld) [Pure # fraction] 0.5 E9/L Normal 0.2-1.0 [facility] Comment on above: Order Comment: Order Added by Valeria Expert. Performed By: #### 1 9181046, 1995694, 1092449, 1871193, 7920508, 58228802, 6388527 ####[address] [address] Neutrophils/100 WBC (Bld) 76.7 % High 36.0-75.0 [facility] Comment on above: Order Comment: Order Added by Valeria Expert. Performed By: #### 1 8298751, 5808945, 5604720, 1614796, 9342434, 60910808, 8192543 ####[address] [place] [address] Neutrophils/Leukocyte s Auto (Bld) [Pure # fraction] 4.7 E9/L Normal 2.0-7.5 [facility] Comment on above: Order Comment: Order Added by Discern Expert. Performed By: #### 1 4708268, 5283808, 5951300, 5832382, 9875259, 52334309, 4698592 ####[facility] [address] [place] [address] BMPon 07-02-2023 Creatinine [Mass/Vol] 1.0 mg/dL Normal 0.5-1.3 [facility] Comment on above: Performed By: #### 1 6376058, 5622962, 8479595, 3338492, 2548343, 79047971, 5690890 ####[facility] [address] [place] [address] Urea nitrogen [Mass/Vol] 13 mg/dL Normal 5-21 [facility] Comment on above: Performed By: #### 1 3734858, 2084489, 9237502, 0708192, 8977157, 11293824, 4421963 ####[facility] [address] [place] [address] Urea nitrogen/Creatinine [Mass ratio] 13 No Units Normal 10-20 [facility] Comment on above: Performed By: #### 1 6863535, 6258003, 9049371, 6809565, 9413904, 40157184, 5252251 ####[facility] [address] [place] [address] Anion gap [Moles/Vol] 13 mmol/L Normal 6-16 [facility] Comment on above: Performed By: #### 1 1779981, 3208039, 3393592, 9318255, 7468827, 23141080, 7691639 ####[facility] [address] [place] [address] Calcium [Mass/Vol] 9.1 mg/dL Normal 8.9-11.1 [facility] Comment on above: Performed By: #### 1 1794719, 1325594, 6473477, 7270701, 6908538, 21209694, 3303540 ####[facility] [address] [place] [address] Chloride [Moles/Vol] 100 mmol/L Low 101-111 [facility] Comment on above: Performed By: #### 1 1808808, 4698733, 1386405, 0810872, 6394903, 22091755, 6507940 ####[facility] [address] [place] [address] CO2 [Moles/Vol] 24 mmol/L Normal 21-31 [facility] Comment on above: Performed By: #### 1 7439629, 7516387, 8382810, 7812336, 3502162, 56070305, 0161022 ####[facility] [address] [place] [address] Glucose [Mass/Vol] 129 mg/dL Normal 55-199 [facility] Comment on above: Result Comment: If t his glucose result represents a fasting glucose, interpretation should refer to the following reference range: 55-99 mg/dL Performed By: #### 1 5652852, 3080201, 5029908, 3013019, 3388216, 70003903, 1818680 ####[facility] [address] [place] [address] Potassium [Moles/Vol] 3.8 mmol/L Normal 3.5-5.3 [facility] Comment on above: Performed By: #### 1 6348160, 9114189, 7726792, 9174673, 4304802, 40487100, 8559162 ####[facility] [address] [place] [address] Sodium [Moles/Vol] 133 mmol/L Low 135-145 [facility] Comment on above: Performed By: #### 1 5828616, 1468034, 6514929, 6352240, 5837597, 17525723, 8530212 ####[facility] [address] [place] [address] CBC w/ Auto Diffon 3 Erythrocyte distribution width (RBC) [Ratio] 13.5 % Normal 10.9-14.2 [facility] Comment on above: Performed By: #### 1 9063287, 0607162, 4576147, 2565240, 4512231, 69333300, 8288572 #### [facility] [address] [place] [address] Hematocrit (Bld) [Volume fraction] 38.5 % Normal 34.0-46.0 [facility] Comment on above: Performed By: #### 1 0053616, 7861643, 8422073, 4302427, 8729620, 45559170, 5174594 #### [facility] [address] [place] [address] Hemoglobin (Bld) [Mass/Vol] 12.7 g/dL Normal 12.0-16.0 [facility] Comment on above: Performed By: #### 1 1095446, 0326293, 7751564, 2343196, 2179135, 30353906, 6895196 #### [facility] [address] [place] [address] MCH (RBC) [Entitic mass] 29.7 pg Normal 27.0-34.0 [facility] Comment on above: Performed By: #### 1 6378067, 9292843, 0573898, 3539512, 5005878, 59958050, 9112674 #### [facility] [address] [place] [address] MCHC (RBC) [Mass/Vol] 32.9 g/dL Normal 31.4-36.0 [facility] Comment on above: Performed By: #### 1 4735808, 3923233, 6500812, 2409917, 7104328, 58593519, 4953227 #### [facility] [address] [place] [address] MCV (RBC) [Entitic vol] 90.3 fL Normal 80.0-100.0 [facility] Comment on above: Performed By: #### 1 2451199, 2377229, 2268636, 8003769, 7337880, 19414501, 7809368 #### [facility] [address] [place] [address] Platelet mean volume (Bld) [Entitic vol] 9.1 fL Normal 6.4-10.8 [facility] Comment on above: Performed By: #### 1 5959863, 7071944, 6621904, 0307004, 0794074, 67250655, 8594037 #### [facility] [address] [place] [address] Platelets (Bld) [#/Vol] 183.0 E9/L Normal 150.0-500.0 [facility] Comment on above: Performed By: #### 1 5115740, 0398814, 7388895, 8581389, 7579462, 59024934, 0159084 #### [facility] [address] [place] [address] RBC (Bld) [#/Vol] 4.3 E12/L Normal 4.3-5.9 [facility] Comment on above: Performed By: #### 1 8406572, 4054621, 8119569, 5130638, 8136988, 69804835, 8928607 #### [facility] [address] [place] [address] WBC corrected for nucl RBC Auto (Bld) [#/Vol] 6.2 E9/L Normal 4.0-11.0 [facility] Comment on above: Performed By: #### 1 3545271, 5441512, 7891292, 2696932, 3993356, 37469657, 0933845 #### [facility] [address] [place] [address] CHEMISTRYOrdered By: SYSTEM SYSTEM on 07-02-2023 Albumin [...] 59 mL/min/1.73 m2 Normal >=59mL/min/1 .73 m2 [facility] Chem S Comment on above: Interpretive Data: [...] 30.2 s Normal 25.1 - 36.5 second(s) [facility] Auto Coag Comment on above: Interpretive Data: [...] the same coagulation reagent and instrumentation as [facility]. Currently there are no coagulation studies available [...] s High 9.4 - 1 2.5 second(s) [facility] Auto Coag Comment on above: Interpretive Data: 1 5 days - 4 weeks 1 - 5 months 6 -11 months 1-5 years 6-10 years 11 -17 years Mean: 11.2 (9.5-12.6) Mean: 11.0 (9.7-12.8) Mean: 11.0 (9.8-13.0) Mean: 11.3 (9.9-13.4) Mean: 11.7 (10.0-14.6) Mean: 11.8 (10.0 - 14.1) Pediatric Reference ranges were obtained from a study by oRel Loco et al. prepared from 1437 samples obtained at 7 different centers using the same coagulation reagent and instrumentation as [facility]. Currently there are no coagulation studies available worldwide for children to 14 days, and no normal ranges. Consent for Treatmenton 06-14 Consent for Treatment [id number] Normal [facility] HEMATOLOGYOrdered By: SYSTEM SYSTEM on 07-02-2023 [...] Coag (PPP) [Time] 30.2 second(s) Normal 25.1-36.5 [facility] Comment on above: Result Comment: Para [...] the same coagulation reagent and instrumentation as [facility]. Currently there are no coagulation studies available worldwide for children to 14 days, and no normal ranges. Heparin therapeutic range (represented by Anti-Factor Xa activity of 0.2 - 0.4 U/mL) corresponds to PTT of 56.6 - 109.0 sec. Performed By: #### 2 449926, 33851434, 4658317, 1887423, 8726670, 6677809 #### [facility] [address] [place] [address] INR Coag (PPP) [Relative time] 1.2 {INR} Invalid Interpretation Code [facility] Comment on above: Result Comment: INR results are specifically intended to assess patients stabilized on long-term Anticoagulation therapy suggested INR?s ?Less Intensive Anticoagulation? 2.0 ? 3.0 Conventional Range 3.0 ? 4.5 Performed By: #### 2 396229, 29375479, 3824820, 6920870, 6696439, 6967431 #### [facility] [address] [place] [address] PT Coag (PPP) [Time] 13.2 second(s) High 9.4-12.5 [facility] Comment on above: Result Comment: 15 [...] the same coagulation reagent and instrumentation as [facility]. Currently there are no coagulation studies available worldwide for children to 14 days, and no normal ranges. Performed By: #### 2 575184, 87367913, 9430268, 8396475, 5180043, 0810820 #### [facility] [address] [place] [address] UA With Cult Reflexon 2022 Bacteria LM Ql (Urine sed) TRACE Normal Trace [facility] Comment on above: Order Comment: Urina ry Catheter Insertion triggered Urinalysis With Culture Reflex order by discern. Performed By: #### 2 535291, 29557684, 4921198, 8501153, 8165207, 1255714 #### [facility] [address] [place] [address] Bilirubin Ql (U) Negative Normal Negative [facility] Comment on above: Order Comment: Urina ry Catheter Insertion triggered Urinalysis With Culture Reflex order by discern. Performed By: #### 2 445321, 98514531, 5753177, 3114031, 9352864, 5625651 #### [facility] [address] [place] [address] Clarity (U) CLEAR Normal Clear [facility] Comment on above: Order Comment: Urina ry Catheter Insertion triggered Urinalysis With Culture Reflex order by discern. Performed By: #### 2 822494, 23924355, 9215158, 5408088, 0908341, 0615365 #### [facility] [address] [place] [address] Color (U) YELLOW Normal Yellow [facility] Comment on above: Order Comment: Urina ry Catheter Insertion triggered Urinalysis With Culture Reflex order by discern. Performed By: #### 2 505008, 34320506, 5803182, 8536502, 0916307, 0978909 #### [facility] [address] [place] [address] Epithelial cells.squamous LM.HPF (Urine sed) [#/Area] 9-10 Normal 0-2 [facility] Comment on above: Order Comment: Urina ry Catheter Insertion triggered Urinalysis With Culture Reflex order by discern. Performed By: #### 2 790673, 10769100, 8303586, 0262645, 8710104, 3589222 #### [facility] [address] [place] [address] Glucose Test strip (U) [Mass/Vol] Negative Normal Negative [facility] Comment on above: Order Comment: Urina ry Catheter Insertion triggered Urinalysis With Culture Reflex order by discern. Performed By: #### 2 977838, 33654480, 6677202, 8526312, 3236585, 6833818 #### [facility] [address] [place] [address] Hemoglobin Ql (U) TRACE Abnormal Negative [facility] Comment on above: Order Comment: Urina ry Catheter Insertion triggered Urinalysis With Culture Reflex order by discern. Performed By: #### 2 831061, 60050455, 2439928, 6491103, 1761227, 3590627 #### [facility] [address] [place] [address] Ketones (U) [Mass/Vol] TRACE Invalid Interpretation Code Negative [facility] Comment on above: Order Comment: Urina ry Catheter Insertion triggered Urinalysis With Culture Reflex order by discern. Performed By: #### 2 735339, 61177602, 5891392, 0983763, 9791921, 5443552 #### [facility] [address] [place] [address] [place].plasma/Lithiu m.RBC (Bld) [Mass ratio] 0-3 Normal 0-3 [facility] Comment on above: Order Comment: Urina ry Catheter Insertion triggered Urinalysis With Culture Reflex order by discern. Performed By: #### 2 034284, 01969631, 3298421, 7588248, 7378937, 6475284 #### [facility] [address] [place] [address] Mucus Ql (Urine sed) TRACE Normal [facility] Comment on above: Order Comment: Urina ry Catheter Insertion triggered Urinalysis With Culture Reflex order by discern. Performed By: #### 2 228221, 87385789, 1825019, 0961262, 1943372, 7989846 #### [facility] [address] [place] [address] Nitrite Ql (U) Negative Normal Negative [facility] Comment on above: Order Comment: Urina ry Catheter Insertion triggered Urinalysis With Culture Reflex order by discern. Performed By: #### 2 690140, 79276796, 7091623, 3003326, 6620589, 7430506 #### [facility] [address] [place] [address] pH (U) 5.5 [pH] Invalid Interpretation Code 5.0-9.0 [facility] Comment on above: Order Comment: Urina ry Catheter Insertion triggered Urinalysis With Culture Reflex order by discern. Performed By: #### 2 305467, 45238654, 2229921, 0409744, 8756690, 4027720 #### [facility] [address] [place] [address] Protein (U) [Mass/Vol] Negative Normal Negative [facility] Comment on above: Order Comment: Urina ry Catheter Insertion triggered Urinalysis With Culture Reflex order by discern. Performed By: #### 2 890037, 55009408, 6453347, 3184214, 1393788, 2894593 #### [facility] [address] [place] [address] Specific gravity (U) [Rel density] 1.025 Invalid Interpretation Code 1.005-1.030 [facility] Comment on above: Order Comment: Urina ry Catheter Insertion triggered Urinalysis With Culture Reflex order by discern. Performed By: #### 2 593500, 18809511, 3575528, 4691879, 5898649, 8152809 #### [facility] [address] [place] [address] Type of Urine collection method Robles Normal [facility] Comment on above: Order Comment: Urina ry Catheter Insertion triggered Urinalysis With Culture Reflex order by discern. Performed By: #### 2 731508, 01247910, 6042313, 5390779, 6179236, 3589494 #### [facility] [address] [place] [address] Urobilinogen Qn (U) 0.2 {Judith'U}/dL Normal 0.0-1.0 [facility] Comment on above: Order Comment: Urina ry Catheter Insertion triggered Urinalysis With Culture Reflex order by discern. Performed By: #### 2 764288, 59063716, 6764427, 2592756, 2010046, 6334411 #### [facility] [address] [place] [address] WBC Auto Ql (U) Negative Normal Negative [facility] Comment on above: Order Comment: Urina ry Catheter Insertion triggered Urinalysis With Culture Reflex order by discern. Performed By: #### 2 918352, 32516452, 9571014, 5950298, 7261143, 5641061 #### [facility] [address] [place] [address] WBC LM.HPF (Urine sed) [#/Area] 0-5 Normal 0-5 [facility] Comment on above: Order Comment: Urina ry Catheter Insertion triggered Urinalysis With Culture Reflex order by discern. Performed By: #### 2 346719, 80779927, 8546348, 9208944, 4804466, 9561369 #### [facility] [address] [place] [address] URINALYSISOrdered By: Lan Eastman on 07-02-2023 Bacteria LM Ql (Urine sed) Trace /HPF Normal Trace/HPF [facility] UA Auto SS Bilirubin Ql (U) Negative (07/02/23 10:18 PM) Normal Negative [facility] UA Auto SS Clarity (U) Clear (07/02/23 10:18 PM) Normal Clear [facility] UA Auto SS Color (U) Yellow (07/02/23 [...] Interpretation Code Negative [facility] UA Auto SS [place].plasma/Lithiu m.RBC (Bld) [Mass ratio] 0-3 /HPF Normal [...] [facility] UA Auto SS Urobilinogen Qn (U) 0.0451097 {Judith'U}/dL Normal 0.0 - 1.0 EU/dL [facility] UA Auto SS WBC Auto Ql (U) Negative (07/02/23 10:18 PM) Normal Negative [facility] UA Auto SS WBC LM.HPF (Urine sed) [#/Area] 0-5 /HPF Normal 0-5/HPF [facility] UA Auto SS eGFRon 07-02-2023 GFR/1.73 sq M.predicted among non-blacks MDRD (S/P/Bld) [Vol rate/Area] 59 mL/min/1.73 m2 Normal >=59 [facility] Comment on above: Order Comment: Order added by Discern Expert. Result Comment: [employer] luis kidney disease could be indicated at eGFR's of less than 60 mL/min/1.73m2. Kidney failure is indicated at less than 15 mL/min/1.73m2. Performed By: #### 1 8780807, 1368198, 9338191, 0572028, 5538361, 15424912, 9334177 ####[facility] [address] [place] [address] CT Abdomen/Pelvis w/o Contra stobernabe 07-01-2023 CT Abdomen/Pelvis w/o Contrast Exam Date/Time: [...] Oral contrast amount in ml's: 0 Normal [facility] Discharge Instructionson Discharge Instructions [id number] Normal [facility] ED Clinical Summaryon 2022 ED Clinical Summary [address] [address] ED Clinical Summary Person Information Name: ASYA ASENCIO I Patricia/[facility] Age: 73 Years : 1950 Sex: Female Language: Guinean PCP: Aravind CMMAHON, Peggy Mcmillan Marital Status: Visit Id: Visit Reason: Diarrhea; [...] 07/01/2023 00:37:46 07/01/2023 00:37:46 07/01/2023 00:37:46 ADDRESS: [address] [place] [id number] [address] [facility] [id number] PHYS DOC NOTES: MEDICAL INFORMATION: Prescriptions Given: New Medications [id number], [address], [place] [id number], [phone] dicyclomine (Bentyl 10 mg Cap) 1 Capsules [...] PATIENT EDUCATION INFORMATION: Instructions: Abdominal Pain, Adult, Zjzn-kn-Nset Follow up: With: Address: When: Peggy Nazario [address] [place] [address] Business (1) In 3 days 07/04/2023 Comments: You can use the Bentyl, Zofran every 6 hours as needed for pain and nausea. Please follow-up with your primary care doctor next 2 to 3 days for further evaluation management. Please return to the ED for any new or worsening symptoms. DIAGNOSIS: Abdominal pain, acute Normal [facility] ED Note-Physicianon 07-01-20 ED Note-Physician Basic [...] and Complexity of Problems Differential Diagnosis: [] [facility] Data External documents reviewed: [] [...] day(s), # 14 cap(s), Refills(s) 0, Pharmacy: [facility][id number], 165, cm, 06/30/23 19:37:00 EST, Height/Length Dosing, [...] q8hr, # 12 tab(s), Refills(s) 0, Pharmacy: [facility] #[id number], 165, cm, 06/30/23 19:37:00 EST, Height/Length Dosing, [...] Information Peggy Nazario In 3 days 07/04/[address] [place], [place] [address] [address] (1) Additional Instructions: You can use the Bentyl, Zofran every 6 hours as needed for pain and nausea. Please follow-up with your primary care doctor next 2 to 3 days for further evaluation management. Please return to the ED for any new or worsening symptoms. Patient Education Abdominal Pain, Adult, Sglv-px-Brro Problem List/Past Medical History Ongoing acid reflux Acute ga (more content not included)... Normal [facility] Comment on above: Result Comment: Elec tronically Signed By: Koby Masterson DO\.br\Date and Time Signed: 07/01/23 01:03 [facility] ED Patient Education Noteon 07-01-2023 ED Patient [...] these instructions at home: Medicines ? Take fvqr-ojg-ghudvtv and prescription medicines only as told by [...] belly pain for any changes. ? Take cnji-aer-nbovkpd and prescription medicines only as told by [...] Reviewed: 12/09/2019 Elsevier Patient Education ? 2022 [employer] Normal [facility] ED Patient Summaryon 023 ED Patient Summary [address] [address] Patient Discharge Instructions Person Information Name: ASYA ASENCIO I Age: 73 Years Arrival Date: 06/30/2023 18:48:02 Discharge Diagnosis: Abdominal pain, acute Primary Care Physician: Peggy aNzario MD Provider Information Primary Provider: Koby Masterson DO Advanced Wood Setter:None The exam and treatment you received in the Emergency Department were for an urgent problem and are not intended as complete care. It is important that you follow up with a doctor, nurse practitioner, or physician?s field assistant for ongoing care. If your symptoms become [...] Follow-up Instructions: With: Address: When: Peggy Nazario [address] [place] [address] [address] Business (1) In 3 days [...] provider. Patient Education Materials: Abdominal Pain, Adult, Gysu-vv-Jrkg A MESSAGE TO ALL PATIENTS REGARDING OPIOIDS PRESCRIPTION OPIOIDS: WHAT YOU NEED TO KNOW Prescription opioids can be used to help relieve ctywwccd-im-ikhcqu pain and are often prescribed following a [...] (www.fda.gov/Drugs/Re sourcesForYou). ? Visit www.cdc.gov/drugoverd ose to robert (more content not included)... [facility] RAD - Preliminary Cat Scan R eporton 07-01-2023 RAD - Preliminary Cat Scan Report [id number] [facility] Auto Diffon 06-30-2023 Basophils/100 WBC (Bld) 0.8 % Normal 0.0-2.0 [facility] Comment on above: Order Comment: Order Added by Discern Expert. Performed By: #### 2 450639, 37460626, 2300929, 4515628, 1228335, 5468023 #### [facility] [address] [place] [address] Basophils/Leukocytes Auto (Bld) [Pure # fraction] 0.0 E9/L Normal 0.0-0.2 [facility] Comment on above: Order Comment: Order Added by Discern Expert. Performed By: #### 2 989034, 60396567, 9907995, 9142915, 0653309, 6279053 #### [facility] [address] [place] [address] Eosinophils/100 WBC (Bld) 0.2 % Normal 0.0-8.0 [facility] Comment on above: Order Comment: Order Added by Discern Expert. Performed By: #### 2 173181, 93591577, 2837157, 2727104, 4777143, 3875297 #### [facility] [address] [place] [address] Eosinophils/Leukocyte s Auto (Bld) [Pure # fraction] 0.0 E9/L Normal 0.0-0.5 [facility] Comment on above: Order Comment: Order Added by Discern Expert. Performed By: #### 2 565415, 42991152, 9575374, 3097090, 1950377, 9930964 #### [facility] [address] [place] [address] Lymphocytes/100 WBC (Bld) 26.7 % Normal 14.0-50.0 [facility] Comment on above: Order Comment: Order Added by Discern Expert. Performed By: #### 2 377085, 81363277, 2454833, 1113690, 2996797, 2869608 #### [facility] [address] [place] [address] Lymphocytes/Leukocyte s Auto (Bld) [Pure # fraction] 1.2 E9/L Normal 1.0-4.0 [facility] Comment on above: Order Comment: Order Added by Discern Expert. Performed By: #### 2 214877, 38492301, 9580435, 6257071, 3503798, 7036231 #### [facility] [address] [place] [address] Monocytes/100 WBC (Bld) 9.8 % Normal 4.0-14.0 [facility] Comment on above: Order Comment: Order Added by Discern Expert. Performed By: #### 2 750457, 40513851, 7134312, 4221986, 7536557, 4979938 #### [facility] [address] [place] [address] Monocytes/Leukocytes Auto (Bld) [Pure # fraction] 0.4 E9/L Normal 0.2-1.0 [facility] Comment on above: Order Comment: Order Added by Discern Expert. Performed By: #### 2 223830, 44314147, 2988262, 4832281, 8978082, 0448206 #### [facility] [address] [place] [address] Neutrophils/100 WBC (Bld) 62.5 % Normal 36.0-75.0 [facility] Comment on above: Order Comment: Order Added by Discern Expert. Performed By: #### 2 433682, 31233523, 4967351, 8015572, 4430636, 2634006 #### [facility] [address] [place] [address] Neutrophils/Leukocyte s Auto (Bld) [Pure # fraction] 2.7 E9/L Normal 2.0-7.5 [facility] Comment on above: Order Comment: Order Added by Discern Expert. Performed By: #### 2 090724, 53096878, 8537101, 9985760, 3542819, 1590394 #### [facility] [address] [place] [address] BMPon 06-30-2023 Creatinine [Mass/Vol] 0.8 mg/dL Normal 0.5-1.3 [facility] Comment on above: Performed By: #### 2 823341, 82286289, 3018272, 1136159, 4928918, 5040431 #### [facility] [address] [place] [address] Urea nitrogen [Mass/Vol] 12 mg/dL Normal 5-21 [facility] Comment on above: Performed By: #### 2 167211, 78423387, 8821997, 9468217, 8658918, 1120570 #### [facility] [address] [place] [address] Urea nitrogen/Creatinine [Mass ratio] 15 No Units Normal 10-20 [facility] Comment on above: Performed By: #### 2 583634, 94359211, 2479598, 3674417, 6040447, 5994378 #### [facility] [address] [place] [address] Anion gap [Moles/Vol] 13 mmol/L Normal 6-16 [facility] Comment on above: Performed By: #### 2 806554, 61384587, 5295931, 8514647, 2477084, 6933360 #### [facility] [address] [place] [address] Calcium [Mass/Vol] 9.5 mg/dL Normal 8.9-11.1 [facility] Comment on above: Performed By: #### 2 791889, 69856276, 6574893, 4084739, 8773830, 7370973 #### [facility] [address] [place] [address] Chloride [Moles/Vol] 103 mmol/L Normal 101-111 [facility] Comment on above: Performed By: #### 2 818828, 78372725, 9501038, 9655322, 4736780, 5239092 #### [facility] [address] [place] [address] CO2 [Moles/Vol] 27 mmol/L Normal 21-31 [facility] Comment on above: Performed By: #### 2 599320, 71708235, 4384632, 1307572, 4638586, 3209269 #### [facility] [address] [place] [address] Glucose [Mass/Vol] 110 mg/dL Normal 55-199 [facility] Comment on above: Result Comment: If t his glucose result represents a fasting glucose, interpretation should refer to the following reference range: 55-99 mg/dL Performed By: #### 2 346140, 62183862, 3798100, 2599872, 3836522, 8644862 #### [facility] [address] [place] [address] Potassium [Moles/Vol] 4.1 mmol/L Normal 3.5-5.3 [facility] Comment on above: Performed By: #### 2 268011, 09858925, 3342782, 0191532, 6883375, 3372077 #### [facility] [address] [place] [address] Sodium [Moles/Vol] 139 mmol/L Normal 135-145 [facility] Comment on above: Performed By: #### 2 856933, 90177130, 3985450, 7961918, 1816530, 4837277 #### [facility] [address] [place] [address] CBC w/ Auto Diffon 3 Erythrocyte distribution width (RBC) [Ratio] 13.7 % Normal 10.9-14.2 [facility] Comment on above: Performed By: #### 2 810183, 74467755, 8688983, 7836912, 1137107, 4523402 #### [facility] [address] [place] [address] Hematocrit (Bld) [Volume fraction] 38.0 % Normal 34.0-46.0 [facility] Comment on above: Performed By: #### 2 636525, 59430096, 3133626, 7405499, 4184703, 1699807 #### [facility] [address] [place] [address] Hemoglobin (Bld) [Mass/Vol] 12.5 g/dL Normal 12.0-16.0 [facility] Comment on above: Performed By: #### 2 913350, 40702472, 3335846, 1074041, 1462006, 2251851 #### [facility] [address] [place] [address] MCH (RBC) [Entitic mass] 29.9 pg Normal 27.0-34.0 [facility] Comment on above: Performed By: #### 2 774908, 65163798, 3090043, 0708148, 0083687, 6513096 #### [facility] [address] [place] [address] MCHC (RBC) [Mass/Vol] 32.9 g/dL Normal 31.4-36.0 [facility] Comment on above: Performed By: #### 2 437293, 39449222, 5932840, 9063866, 2991510, 6682640 #### [facility] [address] [place] [address] MCV (RBC) [Entitic vol] 90.9 fL Normal 80.0-100.0 [facility] Comment on above: Performed By: #### 2 512095, 39741826, 7683915, 0355877, 1823672, 2810397 #### [facility] [address] [place] [address] Platelet mean volume (Bld) [Entitic vol] 8.7 fL Normal 6.4-10.8 [facility] Comment on above: Performed By: #### 2 353429, 13563042, 6624069, 5916642, 0991332, 8307101 #### [facility] [address] [place] [address] Platelets (Bld) [#/Vol] 184.0 E9/L Normal 150.0-500.0 [facility] Comment on above: Performed By: #### 2 864879, 69611589, 9095023, 7858203, 2931551, 9858113 #### [facility] [address] [place] [address] RBC (Bld) [#/Vol] 4.2 E12/L Low 4.3-5.9 [facility] Comment on above: Performed By: #### 2 994870, 88713239, 4486306, 4293405, 1758298, 4214886 #### [facility] [address] [place] [address] WBC corrected for nucl RBC Auto (Bld) [#/Vol] 4.4 E9/L Normal 4.0-11.0 [facility] Comment on above: Performed By: #### 2 415062, 93853988, 3762577, 0178652, 3488599, 5003522 #### [facility] [address] [place] [address] CHEMISTRYOrdered By: SYSTEM SYSTEM on 06-30-2023 Albumin [...] mg/dL Normal 8.9 - 11. 1 mg/dL [facility] Chloride [Moles/Vol] 103 mmol/L Normal 101 - 1 11 mmol/L [facility] CO2 [Moles/Vol] 27 mmol/L Normal 21 - 31 mmol/L [facility] Creatinine [Mass/Vol] 0.8 mg/dL Normal 0.5 - 1.3 mg/dL [facility] GFR/1.73 sq M.predicted among non-blacks MDRD (S/P/Bld) [Vol rate/Area] 77 mL/min/1.73 m2 Normal >=59mL/min/1 .73 m2 [facility] Chem S Comment on above: Interpretive Data: C hronic kidney disease could be indicated at eGFR's of less than 60 mL/min/1.73m2. Kidney failure is indicated at less than 15 mL/min/1.73m2. Globulin (S) [Mass/Vol] 3.0 g/dL Normal 1.4 - 4.0 gm/dL [facility] Glucose [Mass/Vol] 110 mg/dL Normal 55 - 199 mg/dL [facility] Comment on above: Interpretive Data: I f this glucose result represents a fasting glucose, interpretation should refer to the following reference range: 55-99 mg/dL Lipase [Catalytic activity/Vol] 31 U/L Normal 13 - 58 unit/L [facility] Potassium [Moles/Vol] 4.1 mmol/L Normal 3.5 - 5.3 mmol/L [facility] Protein [Mass/Vol] 6.8 g/dL Normal 6.0 - 7.8 gm/dL [facility] Sodium [Moles/Vol] 139 mmol/L Normal 135 - 145 mmol/L [facility] Urea nitrogen [Mass/Vol] 12 mg/dL Normal 5 - 21 mg/dL [facility] Urea nitrogen/Creatinine [Mass ratio] 15 mg/mg Normal 10 - 20 [facility] Consent for Treatmenton 06-14 Consent for Treatment [id number] 311 [id number] .00TIFF [facility] Consent for Treatment [id number] 311 [id number]#1 .00TIFF Normal [facility] HEMATOLOGYOrdered By: SYSTEM SYSTEM on 06-30-2023 [...] 90.9 fL Normal 80.0 - 100.0 fL [facility] HemeAutoSS Platelet mean volume (Bld) [Entitic vol] 8.7 fL Normal 6.4 - 10.8 fL [facility] Platelets (Bld) [#/Vol] 184.0 E9/L Normal 150.0 - 500.0 E9/L [facility] RBC (Bld) [#/Vol] 4.2 E12/L Low 4.3 - 5.9 E12/L [facility] WBC corrected for nucl RBC Auto (Bld) [#/Vol] 4.4 E9/L Normal 4.0 - 11.0 E9/L [facility] HemeAutoSS Hep Func Panelon 06-30-2023 Bilirubin.indirect [Mass or moles/Vol] UTC Abnormal 0.1-0.9 [facility] Comment on above: Result Comment: Resu lt verified by Discern Rule. Performed result UTC (Unable to Calculate) was sent as an Alpha code due the inability to calculate a valid numeric value. Performed By: #### 2 121311, 52735324, 3106557, 7387584, 1297370, 6395919 #### [facility] [address] [place] [address] Albumin [Mass/Vol] 3.8 g/dL Normal 3.3-5.0 [facility] Comment on above: Performed By: #### 2 906976, 66033081, 2958565, 0857120, 7049993, 9492035 #### [facility] [address] [place] [address] Albumin/Globulin (S) [Mass conc ratio] 1.3 Normal 1.1-2.2 [facility] Comment on above: Performed By: #### 2 913450, 47854747, 9315609, 7261565, 0545211, 8309056 #### [facility] [address] [place] [address] ALP [Catalytic activity/Vol] 56 Int._Unit/L Normal 21-98 [facility] Comment on above: Performed By: #### 2 893704, 63438904, 8402896, 2716540, 5535606, 4879715 #### [facility] [address] [place] [address] ALT No additional P-5'-P [Catalytic activity/Vol] 50 Int._Unit/L [facility] 6-46 [facility] Comment on above: Performed By: #### 2 478089, 50817954, 5444034, 5862581, 5886877, 3591668 #### [facility] [address] [place] [address] AST [Catalytic activity/Vol] 45 Int._Unit/L [facility] 5-43 [facility] Comment on above: Performed By: #### 2 563797, 66364337, 9515567, 5324591, 2562166, 2563037 #### [facility] [address] [place] [address] Bilirubin [Mass/Vol] 0.5 mg/dL Normal 0.0-1.1 [facility] Comment on above: Performed By: #### 2 576856, 96135631, 0366848, 2969035, 0265385, 9751917 #### [facility] [address] [place] [address] Globulin (S) [Mass/Vol] 3.0 g/dL Normal 1.4-4.0 [facility] Comment on above: Performed By: #### 2 032717, 07467244, 9912627, 2511679, 8932103, 5821922 #### [facility] [address] [place] [address] Protein [Mass/Vol] 6.8 g/dL Normal 6.0-7.8 [facility] Comment on above: Performed By: #### 2 439970, 06327851, 4141477, 3050572, 1071538, 3788972 #### [facility] [address] [place] [address] Bilirubin.direct [Mass/Vol] mg/dL Normal 0.1-0.4 [facility] Comment on above: Performed By: #### 2 472427, 38869848, 6626930, 9147235, 9171425, 8541596 #### [facility] [address] [place] [address] Lipase Levelon 06-30-2023 Lipase [Catalytic activity/Vol] 31 U/L Normal 13-58 [facility] Comment on above: Performed By: #### 2 009281, 83079663, 8163065, 6211301, 1401481, 9313254 #### [facility] [address] [place] [address] UA With Cult Reflexon 2022 Bacteria LM Ql (Urine sed) TRACE Normal Trace [facility] Comment on above: Performed By: #### 2 813917, 40908290, 5662185, 8152483, 7287730, 4002159 #### [facility] [address] [place] [address] Bilirubin Ql (U) Negative Normal Negative [facility] Comment on above: Performed By: #### 2 074615, 06089427, 2197497, 0330243, 2262653, 8842820 #### [facility] [address] [place] [address] Clarity (U) CLEAR Normal Clear [facility] Comment on above: Performed By: #### 2 982104, 49697120, 1877044, 8576372, 0645224, 1924952 #### [facility] [address] [place] [address] Color (U) YELLOW Normal Yellow [facility] Comment on above: Performed By: #### 2 754167, 41271084, 5405423, 7680287, 5360948, 0782707 #### [facility] [address] [place] [address] Epithelial cells.squamous LM.HPF (Urine sed) [#/Area] 0-2 Normal 0-2 [facility] Comment on above: Performed By: #### 2 773230, 55684952, 2855839, 9132781, 4208982, 5459225 #### [facility] [address] [place] [address] Glucose Test strip (U) [Mass/Vol] Negative Normal Negative [facility] Comment on above: Performed By: #### 2 714903, 37732573, 8056117, 5861824, 5176936, 1239775 #### [facility] [address] [place] [address] Hemoglobin Ql (U) TRACE Abnormal Negative [facility] Comment on above: Performed By: #### 2 326675, 96538528, 2990055, 4711861, 9220566, 7531134 #### [facility] [address] [place] [address] Ketones (U) [Mass/Vol] Negative Normal Negative [facility] Comment on above: Performed By: #### 2 048971, 89074844, 6065052, 1001496, 6183669, 8363267 #### [facility] [address] [place] [address] [place].plasma/Lithiu m.RBC (Bld) [Mass ratio] 0-3 Normal 0-3 [facility] Comment on above: Performed By: #### 2 001361, 10117422, 4853244, 7765949, 7470413, 3941839 #### [facility] [address] [place] [address] Nitrite Ql (U) Negative Normal Negative [facility] Comment on above: Performed By: #### 2 349789, 02335040, 7331713, 2816505, 5622937, 2570588 #### [facility] [address] [place] [address] pH (U) 6.5 [pH] Invalid Interpretation Code 5.0-9.0 [facility] Comment on above: Performed By: #### 2 345864, 79367611, 4958232, 7743108, 1117051, 0981336 #### [facility] [address] [place] [address] Protein (U) [Mass/Vol] Negative Normal Negative [facility] Comment on above: Performed By: #### 2 085516, 88286509, 5686139, 1327269, 6210960, 6426019 #### [facility] [address] [place], [place] [address] Specific gravity (U) [Rel density] <=1.005 Invalid Interpretation Code 1.005-1.030 [facility] Comment on above: Performed By: #### 2 472865, 58630279, 2144174, 8057143, 1440005, 6060903 #### [facility] [address] [place] [address] Type of Urine collection method Clean Catch Normal [facility] Comment on above: Performed By: #### 2 964182, 57457205, 7723990, 6766208, 1386794, 9839367 #### [facility] [address] [place] [address] Urobilinogen Qn (U) 0.2 {Judith'U}/dL Normal 0.0-1.0 [facility] Comment on above: Performed By: #### 2 633750, 40254162, 3560547, 7832345, 3532106, 0893272 #### [facility] [address] [place] [address] WBC Auto Ql (U) Negative Normal Negative [facility] Comment on above: Performed By: #### 2 087580, 98751374, 2794344, 2509151, 3936107, 7215945 #### [facility] [address] [place] [address] WBC LM.HPF (Urine sed) [#/Area] 0-5 Normal 0-5 [facility] Comment on above: Performed By: #### 2 495053, 57751635, 0688703, 8086824, 0771195, 4907630 #### [facility] [address] [place] [address] URINALYSISOrdered By: Brian Davis on 06-30-2023 Bacteria [...] PM) Normal Negative [facility] UA Auto SS [place].plasma/Lithiu m.RBC (Bld) [Mass ratio] 0-3 /HPF Normal [...] [facility] UA Auto SS Urobilinogen Qn (U) 0.9212192 {Judith'U}/dL Normal 0.0 - 1.0 EU/dL [facility] UA Auto SS WBC Auto Ql (U) Negative (06/30/23 8:00 PM) Normal Negative [facility] UA Auto SS WBC LM.HPF (Urine sed) [#/Area] 0-5 /HPF Normal 0-5/HPF [facility] UA Auto SS eGFRon 06-30-2023 GFR/1.73 sq M.predicted among non-blacks MDRD (S/P/Bld) [Vol rate/Area] 77 mL/min/1.73 m2 Normal >=59 [facility] Comment on above: Order Comment: Order added by Discern Expert. Result Comment: [employer] luis kidney disease could be indicated at eGFR's of less than 60 mL/min/1.73m2. Kidney failure is indicated at less than 15 mL/min/1.73m2. Performed By: #### 2 536560, 41830699, 0027797, 1853976, 0525478, 0228057 #### [facility] [address] [place] [address] URINALYSISOrdered By: Lan Eastman on 01-28-2023 Bilirubin [...] PM) Normal Negative [facility] UA Auto SS [place].plasma/Lithiu m.RBC (Bld) [Mass ratio] 0-3 /HPF Normal [...] PM) Invalid Interpretation Code 1.005 - 1.030 [facility] UA Auto SS UA Spec Desc Clean Catch (01/28/23 11:04 PM) Normal [facility] UA Auto SS Urobilinogen Qn (U) 1.3212304 {Judith'U}/dL Normal 0.0 - 1.0 EU/dL [facility] UA Auto SS WBC Auto Ql (U) Negative (01/28/23 11:04 PM) Normal Negative [facility] UA Auto SS WBC LM.HPF (Urine sed) [#/Area] 0-5 /HPF Normal 0-5/HPF [facility] UA Auto SS Q - SARS CoV2 COVID 19 Ab Ig Clarence 08-20-2021 SARS-CoV-2 (COVID-19) Ab IA Qn 25.84 index High <1.00 [facility] Rn Embedded Comment on above: Order Comment: [employer] Testing performed at: [facility], [employer] [facility], [address] [place] [address], [address] [place] [address], [phone], Material Liaison: Ab Vincent MD [facility] Collection Date/Time: [facility] [...] providers and patients using the following websites: [email or web address] Healthcare Providers: For additional information please refer to: http://education.[employer]/faq/QID340 (This link is being provided for informational/educational purposes only.) This test has been authorized by the FDA under an Emergency Use Authorization (EUA) for use by authorized laboratories. The FDA authorized labeling is available on the [employer] website: www.[employer]/Covid19. Performed By: #### 3 4499 #### [facility] Default [address] [place] [address] Reference Laboratory Testing Ordered By: [facility] DomainUser on 08-12-2021 SARS-CoV-2 (COVID-19) RNA JORDAN+probe Ql (Resp) Not detected Invalid Interpretation Code Not Detected [facility] [employer] Comment on above: Result Comment: This nucleic acid amplification test was developed and its performance characteristics determined by [employer]. Nucleic acid amplification tests include RT-PCR and [...] detected) result in this assay. Performed at: [address] [id number] PhD Emily Fraser Vital Signs Date Time Vital Sign Value Performing Clinician Layo lora 01-22-2025 13:56-0400 Body height 160 cm Hannah Brian MD Work Phone: [facility] 01-22-2025 13:56-0400 Body mass index (BMI) [Ratio] 23.91 kg/m2 Hannah Brian MD Work Phone: [facility] 01-22-2025 13:56-0400 Body temperature 98.01 [degF] Hannah Brian MD Work Phone: [facility] 01-22-2025 13:56-0400 Body weight 61.24 kg Hannah Brian MD Work Phone: [facility] 01-22-2025 13:56-0400 Diastolic blood pressure 60 mm[Hg] Hannah Brian MD Work Phone: [facility] 01-22-2025 13:56-0400 Heart rate 70 /min Hannah Brian MD Work Phone: [facility] 01-22-2025 13:56-0400 SaO2% (BldA) [Mass fraction] 99 % Hannah Brian MD Work Phone: [facility] 01-22-2025 13:56-0400 Systolic blood pressure 138 mm[Hg] Hannah Brian MD Work Phone: [facility] 01-07-2025 15:47-0400 Body height 160 cm Hannah Brian MD Work Phone: [facility] 01-07-2025 15:47-0400 Body mass index (BMI) [Ratio] 23.95 kg/m2 Hannah Brian MD Work Phone: [facility] 01-07-2025 15:47-0400 Body temperature 97.9 [degF] Hannah Brina MD Work Phone: [facility] 01-07-2025 15:47-0400 Body weight 61.33 kg Hannah Brian MD Work Phone: [facility] 01-07-2025 15:47-0400 Diastolic blood pressure 70 mm[Hg] Hannah Brian MD Work Phone: [facility] 01-07-2025 15:47-0400 Heart rate 70 /min Hannah Brian MD Work Phone: [facility] 01-07-2025 15:47-0400 SaO2% (BldA) [Mass fraction] 97 % Hannah Brian MD Work Phone: [facility] 01-07-2025 15:47-0400 Systolic blood pressure 120 mm[Hg] Hannah Brian MD Work Phone: [facility] 12-17-2024 15:23-0400 Body height 160 cm Hannah Brian MD Work Phone: [facility] 12-17-2024 15:23-0400 Body mass index (BMI) [Ratio] 24.09 kg/m2 Hannah Brian MD Work Phone: [facility] 12-17-2024 15:23-0400 Body temperature 97.5 [degF] Hannah Brian MD Work Phone: [facility] 12-17-2024 15:23-0400 Body weight 61.69 kg Hannah Brian MD Work Phone: [facility] 12-17-2024 15:23-0400 Diastolic blood pressure 80 mm[Hg] Hannah Brian MD Work Phone: [facility] 12-17-2024 15:23-0400 Heart rate 74 /min Hannah Brian MD Work Phone: [facility] 12-17-2024 15:23-0400 SaO2% (BldA) [Mass fraction] 99 % Hannah Brian MD Work Phone: [facility] 12-17-2024 15:23-0400 Systolic blood pressure 128 mm[Hg] Hannah Brian MD Work Phone: [facility] 11-25-2024 11:32-0400 Body height 160 cm Hannah Brian MD Work Phone: [facility] 11-25-2024 11:32-0400 Body mass index (BMI) [Ratio] 24.45 kg/m2 Hannah Brian MD Work Phone: [facility] 11-25-2024 11:32-0400 Body temperature 97.81 [degF] Hannah Brian MD Work Phone: [facility] 11-25-2024 11:32-0400 Body weight 62.6 kg Hannah Brian MD Work Phone: [facility] 11-25-2024 11:32-0400 Diastolic blood pressure 60 mm[Hg] Hannah Brian MD Work Phone: [facility] 11-25-2024 11:32-0400 Heart rate 75 /min Hannah Brian MD Work Phone: [facility] 11-25-2024 11:32-0400 SaO2% (BldA) [Mass fraction] 96 % Hannah Brian MD Work Phone: [facility] 11-25-2024 11:32-0400 Systolic blood pressure 124 mm[Hg] Hannah Brian MD Work Phone: [facility] 11-18-2024 11:43-0400 Body height 160 cm Hannah Brian MD Work Phone: [facility] 11-18-2024 11:43-0400 Body mass index (BMI) [Ratio] 23.91 kg/m2 Hannah Brian MD Work Phone: [facility] 11-18-2024 11:43-0400 Body temperature 97.81 [degF] Hannah Brian MD Work Phone: [facility] 11-18-2024 11:43-0400 Body weight 61.24 kg Hannah Brian MD Work Phone: [facility] 11-18-2024 11:43-0400 Diastolic blood pressure 60 mm[Hg] Hannah Brian MD Work Phone: [facility] 11-18-2024 11:43-0400 Heart rate 70 /min Hannah Brian MD Work Phone: [facility] 11-18-2024 11:43-0400 SaO2% (BldA) [Mass fraction] 98 % Hannah Brian MD Work Phone: [facility] 11-18-2024 11:43-0400 Systolic blood pressure 120 mm[Hg] Hannah Brian MD Work Phone: [facility] 10-08-2024 12:58-0500 Body height 160 cm Sherlyn Shine PA Work Phone: [facility] 10-08-2024 12:58-0500 Body mass index (BMI) [Ratio] 23.91 kg/m2 Sherlyn Shine PA Work Phone: [facility] 10-08-2024 12:58-0500 Body temperature 97.9 [degF] Sherlyn Shine PA Work Phone: [facility] 10-08-2024 12:58-0500 Body weight 61.24 kg Sherlyn Shine PA Work Phone: [facility] 10-08-2024 12:58-0500 Diastolic blood pressure 70 mm[Hg] Sherlyn Shine PA Work Phone: [facility] 10-08-2024 12:58-0500 Heart rate 70 /min Sherlyn Shine PA Work Phone: [facility] 10-08-2024 12:58-0500 SaO2% (BldA) [Mass fraction] 97 % Sherlyn Shine PA Work Phone: [facility] 10-08-2024 12:58-0500 Systolic blood pressure 120 mm[Hg] Sherlyn Shine PA Work Phone: [facility] 08-12-2024 16:09-0500 Body height 161.3 cm Shelley Braunnamiller PROSTHETIC ASSISTANT Work Phone: [facility] 08-12-2024 16:09-0500 Body mass index (BMI) [Ratio] 22.39 kg/m2 Shelley Donnamiller PROSTHETIC ASSISTANT Work Phone: [facility] 08-12-2024 16:09-0500 Body temperature 97.7 [degF] Shelley Donnamiller PROSTHETIC ASSISTANT Work Phone: [facility] 08-12-2024 16:09-0500 Body weight 58.24 kg Shelley Braunnamiller PROSTHETIC ASSISTANT Work Phone: [facility] 08-12-2024 16:09-0500 Diastolic blood pressure 70 mm[Hg] Shelley Donnamiller PROSTHETIC ASSISTANT Work Phone: [facility] 08-12-2024 16:09-0500 Heart rate 73 /min Shelley Donnamiller PROSTHETIC ASSISTANT Work Phone: [facility] 08-12-2024 16:09-0500 SaO2% (BldA) [Mass fraction] 99 % Shelley Donnamiller PROSTHETIC ASSISTANT Work Phone: [facility] 08-12-2024 16:09-0500 Systolic blood pressure 124 mm[Hg] Shelley Donnamiller PROSTHETIC ASSISTANT Work Phone: [facility] 08-05-2024 15:19-0500 Body height 161.3 cm Rodolfo Boo DO Work Phone: [facility] 08-05-2024 15:19-0500 Body mass index (BMI) [Ratio] 21.8 kg/m2 Rodolfo Boo DO Work Phone: [facility] 08-05-2024 15:19-0500 Body weight 56.7 kg Rodolfo Boo DO Work Phone: [facility] 08-05-2024 15:19-0500 Diastolic blood pressure 84 mm[Hg] Rodolfo Boo DO Work Phone: [facility] 08-05-2024 15:19-0500 Systolic blood pressure 130 mm[Hg] Rodolfo Boo DO Work Phone: [facility] 07-01-2024 15:35-0500 Body height 165.1 cm Sherlyn Shine PA Work Phone: [facility] 07-01-2024 15:35-0500 Body mass index (BMI) [Ratio] 20.93 kg/m2 Sherlyn Shine PA Work Phone: [facility] 07-01-2024 15:35-0500 Body temperature 97.7 [degF] Sherlyn Shine PA Work Phone: [facility] 07-01-2024 15:35-0500 Body weight 57.06 kg Sherlyn Shine PA Work Phone: [facility] 07-01-2024 15:35-0500 Diastolic blood pressure 80 mm[Hg] Sherlyn Shine PA Work Phone: [facility] 07-01-2024 15:35-0500 Heart rate 86 /min Sherlyn Shine PA Work Phone: [facility] 07-01-2024 15:35-0500 SaO2% (BldA) [Mass fraction] 98 % Sherlyn Shine PA Work Phone: [facility] 07-01-2024 15:35-0500 Systolic blood pressure 120 mm[Hg] Shrelyn ABRAMS Work Phone: [facility] 06-27-2024 11:13-0500 Body mass index (BMI) [Ratio] 19.97 kg/m2 Raphael Goldsmith MD Work Phone: [facility] 06-27-2024 11:13-0500 Body temperature 96.6 [degF] Raphael Goldsmith MD Work Phone: [facility] 06-27-2024 11:13-0500 Body weight 54.43 kg Raphael Goldsmith MD Work Phone: [facility] 06-27-2024 11:13-0500 Diastolic blood pressure 60 mm[Hg] Raphael Goldsmith MD Work Phone: [facility] 06-27-2024 11:13-0500 Heart rate 83 /min Raphael Goldsmith MD Work Phone: [facility] 06-27-2024 11:13-0500 Systolic blood pressure 149 mm[Hg] Raphael Goldsmith MD Work Phone: [facility] 11-22-2023 20:52-0400 Body temperature 97.7 [degF] Jayson Calloway [facility] 11-22-2023 20:52-0400 Diastolic blood pressure 80 mm[Hg] Jayson Calloway [facility] 11-22-2023 20:52-0400 Heart rate 60 /min Jayson Calloway [facility] 11-22-2023 20:52-0400 Respiratory rate 17 /min Jayson Calloway [facility] 11-22-2023 20:52-0400 SaO2% (BldA) [Mass fraction] 100 % Jayson Calloway [facility] 11-22-2023 20:52-0400 Systolic blood pressure 147 mm[Hg] Jayson Calloway [facility] 11-22-2023 18:32-0400 Heart rate 87 /min Jayson Brodie [facility] 11-22-2023 18:32-0400 Respiratory rate 18 /min Jayson Brodie [facility] 11-22-2023 18:32-0400 SaO2% (BldA) [Mass fraction] 98 % Jayson Brodie [facility] 11-22-2023 17:50-0400 Diastolic blood pressure 80 mm[Hg] Jayson Brodie [facility] 11-22-2023 17:50-0400 Heart rate 68 /min Jayson Brodie [facility] 11-22-2023 17:50-0400 Respiratory rate 18 /min Jayson Brodie [facility] 11-22-2023 17:50-0400 SaO2% (BldA) [Mass fraction] 98 % Jayson Brodie [facility] 11-22-2023 17:50-0400 Systolic blood pressure 134 mm[Hg] Jayson Brodie [facility] 11-22-2023 16:24-0400 Body temperature 96.8 [degF] Jayson Brodie [facility] 11-22-2023 16:24-0400 Diastolic blood pressure 68 mm[Hg] Jayson Brodie [facility] 11-22-2023 16:24-0400 Systolic blood pressure 131 mm[Hg] Jayson Brodie [facility] 10-05-2023 21:54-0500 Diastolic blood pressure 81 mm[Hg] Koby Masterson [facility] 10-05-2023 21:54-0500 Heart rate 75 /min Kaylinn Dokken [facility] 10-05-2023 21:54-0500 Respiratory rate 19 /min Kaylinn Dokken [facility] 10-05-2023 21:54-0500 SaO2% (BldA) [Mass fraction] 100 % Kaylinn Dokken [facility] 10-05-2023 21:54-0500 Systolic blood pressure 144 mm[Hg] Kaylinn Dokken [facility] 10-05-2023 18:04-0500 Body temperature 97.7 [degF] Kaylinn Dokken [facility] 10-05-2023 18:04-0500 Diastolic blood pressure 78 mm[Hg] Kaylinn Dokken [facility] 10-05-2023 18:04-0500 Heart rate 95 /min Kaylinn Dokken [facility] 10-05-2023 18:04-0500 Respiratory rate 22 /min Kaylinn Dokken [facility] 10-05-2023 18:04-0500 SaO2% (BldA) [Mass fraction] 100 % Kaylinn Dokken [facility] 10-05-2023 18:04-0500 Systolic blood pressure 131 mm[Hg] Kaylinn Dokken [facility] 09-26-2023 09:13-0500 Body height 165.1 cm Ana Rivas APRN.PASSENGER TRAIN BRAKER Work Phone: [facility] 09-26-2023 09:13-0500 Body weight 50.8 kg Ana Rivas APRN.PASSENGER TRAIN BRAKER Work Phone: [facility] 09-26-2023 09:13-0500 Diastolic blood pressure 57 mm[Hg] Ana [place] ORE CRUSHER.PASSENGER TRAIN BRAKER Work Phone: [facility] 09-26-2023 09:13-0500 Heart rate 72 /min Ana [place] ORE CRUSHER.PASSENGER TRAIN BRAKER Work Phone: [facility] 09-26-2023 09:13-0500 Respiratory rate 20 /min Ana [place] O[employer] CRUSHER.PASSENGER TRAIN BRAKER Work Phone: [facility] 09-26-2023 09:13-0500 SaO2% (BldA) [Mass fraction] 98 % Ana [place] O[employer] CRUSHER.PASSENGER TRAIN BRAKER Work Phone: [facility] 09-26-2023 09:13-0500 Systolic blood pressure 118 mm[Hg] Ana [place] ORE CRUSHER.PASSENGER TRAIN BRAKER Work Phone: [facility] 09-18-2023 17:51-0500 Body height 165.1 cm Peggy Nazario MD Work Phone: [facility] 09-18-2023 17:51-0500 Body mass index (BMI) [Ratio] 19.34 kg/m2 Peggy Nazario MD Work Phone: [facility] 09-18-2023 17:51-0500 Body temperature 98.01 [degF] Peggy Nazario MD Work Phone: [facility] 09-18-2023 17:51-0500 Body weight 52.71 kg Peggy Nazario MD Work Phone: [facility] 09-18-2023 17:51-0500 Diastolic blood pressure 66 mm[Hg] Peggy Nazario MD Work Phone: [facility] 09-18-2023 17:51-0500 Heart rate 75 /min Peggy Nazario MD Work Phone: [facility] 09-18-2023 17:51-0500 SaO2% (BldA) [Mass fraction] 99 % Peggy Nazario MD Work Phone: [facility] 09-18-2023 17:51-0500 Systolic blood pressure 136 mm[Hg] Peggy Nazario MD Work Phone: [facility] 09-17-2023 06:00-0500 Diastolic blood pressure 60 mm[Hg] Parveen Armen [facility] 09-17-2023 06:00-0500 Heart rate 61 /min Parveen Armen [facility] 09-17-2023 06:00-0500 Mean blood pressure 79 mm[Hg] Parveen Armen [facility] 09-17-2023 06:00-0500 Respiratory rate 11 /min Parveen Armen [facility] 09-17-2023 06:00-0500 SaO2% (BldA) [Mass fraction] 100 % Parveen Armen [facility] 09-17-2023 06:00-0500 Systolic blood pressure 118 mm[Hg] Parveen Armen [facility] 09-17-2023 05:06-0500 Body temperature 96.98 [degF] Parveen Armen [facility] 09-17-2023 05:06-0500 Diastolic blood pressure 58 mm[Hg] Parveen Armen [facility] 09-17-2023 05:06-0500 gluc 79 mg/dL Parveen Armen [facility] 09-17-2023 05:06-0500 gluc Parveen Armen [facility] 09-17-2023 05:06-0500 Heart rate 85 /min Parveen Armen [facility] 09-17-2023 05:06-0500 Respiratory rate 20 /min Parveen Armen [facility] 09-17-2023 05:06-0500 SaO2% (BldA) [Mass fraction] 98 % Parveen Armen [facility] 09-17-2023 05:06-0500 Systolic blood pressure 140 mm[Hg] Parveen Armen [facility] 09-12-2023 06:38-0500 Diastolic blood pressure 93 mm[Hg] Parveen Armen [facility] 09-12-2023 06:38-0500 Heart rate 78 /min Parveen Armen [facility] 09-12-2023 06:38-0500 Mean blood pressure 109 mm[Hg] Parveen Armen [facility] 09-12-2023 06:38-0500 Respiratory rate 13 /min Parveen Armen [facility] 09-12-2023 06:38-0500 SaO2% (BldA) [Mass fraction] 98 % Parveen Armen [facility] 09-12-2023 06:38-0500 Systolic blood pressure 142 mm[Hg] Parveen Armen [facility] 09-12-2023 05:58-0500 Diastolic blood pressure 96 mm[Hg] Parveen Armen [facility] 09-12-2023 05:58-0500 Heart rate 55 /min Parveen Armen [facility] 09-12-2023 05:58-0500 Mean blood pressure 112 mm[Hg] Parveen Armen [facility] 09-12-2023 05:58-0500 Respiratory rate 16 /min Parveen Armen [facility] 09-12-2023 05:58-0500 SaO2% (BldA) [Mass fraction] 100 % Parveen Armen [facility] 09-12-2023 05:58-0500 Systolic blood pressure 144 mm[Hg] Parveen Armen [facility] 09-12-2023 04:56-0500 Diastolic blood pressure 77 mm[Hg] Parveen Armen [facility] 09-12-2023 04:56-0500 Heart rate 60 /min Parveen Armen [facility] 09-12-2023 04:56-0500 Mean blood pressure 94 mm[Hg] Parveen Armen [facility] 09-12-2023 04:56-0500 Respiratory rate 18 /min Parveen Armen [facility] 09-12-2023 04:56-0500 SaO2% (BldA) [Mass fraction] 100 % Parveen Armen [facility] 09-12-2023 04:56-0500 Systolic blood pressure 129 mm[Hg] Parveen Armen [facility] 09-12-2023 04:27-0500 gluc 96 mg/dL Parveen Armen [facility] 09-12-2023 04:27-0500 gluc Parveen Armen [facility] 09-12-2023 04:13-0500 Body temperature 96.98 [degF] Parveen Armen [facility] 09-12-2023 04:13-0500 Heart rate 83 /min Parveen Armen [facility] 09-12-2023 04:13-0500 Respiratory rate 16 /min Parveen Ayers [facility] 08-11-2023 08:55-0500 Body height 165.1 cm Peggy Nazario MD Work Phone: [facility] 08-11-2023 08:55-0500 Body mass index (BMI) [Ratio] 19.44 kg/m2 Peggy Nazario MD Work Phone: [facility] 08-11-2023 08:55-0500 Body temperature 97.9 [degF] Peggy Nazario MD Work Phone: [facility] 08-11-2023 08:55-0500 Body weight 52.98 kg Peggy Nazario MD Work Phone: [facility] 08-11-2023 08:55-0500 Diastolic blood pressure 68 mm[Hg] Peggy Nazario MD Work Phone: [facility] 08-11-2023 08:55-0500 Heart rate 69 /min Peggy Nazario MD Work Phone: [facility] 08-11-2023 08:55-0500 SaO2% (BldA) [Mass fraction] 99 % Peggy Nazario MD Work Phone: [facility] 08-11-2023 08:55-0500 Systolic blood pressure 122 mm[Hg] Peggy Nazario MD Work Phone: [facility] 07-21-2023 06:46-0500 Blood Pressure Location Johan HENRIQUEZ [facility] 07-21-2023 06:46-0500 Diastolic blood pressure 57 mm[Hg] Johan HENRIQUEZ [facility] 07-21-2023 06:46-0500 Heart rate 81 /min Johan HENRIQUEZ [facility] 07-21-2023 06:46-0500 Respiratory rate 18 /min Johan HENRIQUEZ [facility] 07-21-2023 06:46-0500 SaO2% (BldA) [Mass fraction] 100 % Johan HENRIQUEZ [facility] 07-21-2023 06:46-0500 Systolic blood pressure 118 mm[Hg] Johan HENRIQUEZ [facility] 07-20-2023 09:56-0500 Blood Pressure Location Johan HENRIQUEZ [facility] 07-20-2023 09:56-0500 Diastolic blood pressure 52 mm[Hg] Johan HENRIQUEZ [facility] 07-20-2023 09:56-0500 Heart rate 62 /min Johan HENRIQUEZ [facility] 07-20-2023 09:56-0500 SaO2% (BldA) [Mass fraction] 98 % Johanwilton HENRIQUEZ [facility] 07-20-2023 09:56-0500 Systolic blood pressure 105 mm[Hg] Johan HENRIQUEZ [facility] 07-07-2023 12:38-0500 Diastolic blood pressure 59 mm[Hg] Jeff Cross [facility] 07-07-2023 12:38-0500 Heart rate 94 /min Jeff Wadee [facility] 07-07-2023 12:38-0500 Respiratory rate 13 /min Jeff Tay [facility] 07-07-2023 12:38-0500 SaO2% (BldA) [Mass fraction] 94 % Jeff Tay [facility] 07-07-2023 12:38-0500 Systolic blood pressure 123 mm[Hg] Jeff Tay [facility] 07-07-2023 12:00-0500 Diastolic blood pressure 83 mm[Hg] Jeff Tay [facility] 07-07-2023 12:00-0500 Heart rate 102 /min Jeff Cross [facility] 07-07-2023 12:00-0500 Mean blood pressure 96 mm[Hg] Jeff Waede [facility] 07-07-2023 12:00-0500 Respiratory rate 17 /min Jeff Wadee [facility] 07-07-2023 12:00-0500 SaO2% (BldA) [Mass fraction] 96 % Jeff Wadee [facility] 07-07-2023 11:34-0500 Diastolic blood pressure 73 mm[Hg] Jeff Wadee [facility] 07-07-2023 11:34-0500 Heart rate 93 /min Jeff Wadee [facility] 07-07-2023 11:34-0500 Respiratory rate 18 /min Jeff Wadee [facility] 07-07-2023 11:34-0500 SaO2% (BldA) [Mass fraction] 94 % Jeff Wadee [facility] 07-07-2023 11:34-0500 Systolic blood pressure 109 mm[Hg] Jeff Wadee [facility] 07-07-2023 09:52-0500 Heart rate 103 /min Jeff Tay [facility] 07-07-2023 08:57-0500 Body temperature 97.88 [degF] Jeff Wadee [facility] 07-07-2023 08:57-0500 Heart rate 134 /min Jeff Wadee [facility] 07-07-2023 08:57-0500 Respiratory rate 24 /min Jeff Cross [facility] 07-06-2023 14:03-0500 Hourly Rounding Ronobir ABDI [facility] 07-06-2023 14:03-0500 Promise to Return Ronobir ABDI [facility] 07-06-2023 13:34-0500 Hourly Rounding Ronobir ABDI [facility] 07-06-2023 13:00-0500 Hourly Rounding Ronobir ABDI [facility] 07-06-2023 13:00-0500 Promise to Return Ronobir ABDI [facility] 07-06-2023 12:07-0500 Promise to Return Ronobir ABDI [facility] 07-06-2023 12:00-0500 Blood Pressure Location Ronobir ABDI [facility] 07-06-2023 12:00-0500 Body temperature 98.06 [degF] Ronobir ABDI [facility] 07-06-2023 12:00-0500 Diastolic blood pressure 69 mm[Hg] Ronobir ABDI [facility] 07-06-2023 12:00-0500 Heart rate 78 /min Ronobir ABDI [facility] 07-06-2023 12:00-0500 Mean blood pressure 81 mm[Hg] Ronobir ABDI [facility] 07-06-2023 12:00-0500 SaO2% (BldA) [Mass fraction] 94 % Ronobir ABDI [facility] 07-06-2023 12:00-0500 Systolic blood pressure 105 mm[Hg] Ronobir ABDI [facility] 07-06-2023 10:00-0500 Diastolic blood pressure 66 mm[Hg] Ronobir ABDI [facility] 07-06-2023 10:00-0500 Heart rate 77 /min Ronobir ABDI [facility] 07-06-2023 10:00-0500 Mean blood pressure 78 mm[Hg] Ronobir ABDI [facility] 07-06-2023 10:00-0500 Systolic blood pressure 103 mm[Hg] Ronobir ABDI [facility] 07-06-2023 07:00-0500 Body temperature 97.7 [degF] Ronobir ABDI [facility] 07-06-2023 07:00-0500 Diastolic blood pressure 60 mm[Hg] Ronobir ABDI [facility] 07-06-2023 07:00-0500 SaO2% (BldA) [Mass fraction] 93 % Ronobir ABDI [facility] 07-06-2023 07:00-0500 Systolic blood pressure 97 mm[Hg] Ronobir ABDI [facility] 07-06-2023 00:18-0500 Body temperature 97.7 [degF] Ronobir ABDI [facility] 07-06-2023 00:18-0500 SaO2% (BldA) [Mass fraction] 93 % Ronobir ABDI [facility] 07-05-2023 22:10-0500 Mean blood pressure 79 mm[Hg] Ronobir ABDI [facility] 07-05-2023 16:03-0500 Mean blood pressure 88 mm[Hg] Ronobir ABDI [facility] 07-05-2023 11:18-0500 Mean blood pressure 77 mm[Hg] Ronobir ABDI [facility] 07-05-2023 11:18-0500 Body temperature 98.06 [degF] Ronobir ABDI [facility] 07-05-2023 09:59-0500 Mean blood pressure 86 mm[Hg] Ronobir ABDI [facility] 07-05-2023 09:58-0500 Body temperature 98.42 [degF] Ronobir ABDI [facility] 07-04-2023 19:23-0500 Body temperature 97.7 [degF] Ronobir ABDI [facility] 07-03-2023 18:22-0500 BP/Pulse Patient Position Ronobir ABDI [facility] 07-03-2023 14:00-0500 Respiratory rate 17 /min Ronobir ABDI [facility] 07-03-2023 06:46-0500 Respiratory rate 18 /min Ronobir ABDI [facility] 07-03-2023 06:45-0500 BP/Pulse Patient Position Ronobir ABDI [facility] 07-03-2023 04:30-0500 Respiratory rate 16 /min Ronobir ABDI [facility] 07-03-2023 02:45-0500 Heart rate 90 /min Ronobir ABDI [facility] 07-03-2023 02:30-0500 Respiratory rate 12 /min Ronobir ABDI [facility] 07-03-2023 02:15-0500 Respiratory rate 13 /min Ronobir ABDI [facility] 07-02-2023 21:27-0500 Heart rate 141 /min Ronobir ABDI [facility] 07-02-2023 21:27-0500 Respiratory rate 18 /min Ronobir ABDI [facility] 07-01-2023 00:30-0500 Diastolic blood pressure 76 mm[Hg] Kaylinn Dokken [facility] 07-01-2023 00:30-0500 Heart rate 102 /min Kaylinn Dokken [facility] 07-01-2023 00:30-0500 Mean blood pressure 82 mm[Hg] Kaylinn Dokken [facility] 07-01-2023 00:30-0500 Respiratory rate 18 /min Kaylinn Dokken [facility] 07-01-2023 00:30-0500 SaO2% (BldA) [Mass fraction] 95 % Kaylinn Dokken [facility] 07-01-2023 00:30-0500 Systolic blood pressure 93 mm[Hg] Kaylinn Dokken [facility] 06-30-2023 23:24-0500 Diastolic blood pressure 73 mm[Hg] Kaylinn Dokken [facility] 06-30-2023 23:24-0500 Heart rate 102 /min Kaylinn Dokken [facility] 06-30-2023 23:24-0500 Mean blood pressure 92 mm[Hg] Kaylinn Dokken [facility] 06-30-2023 23:24-0500 Respiratory rate 16 /min Kaylinn Dokken [facility] 06-30-2023 23:24-0500 SaO2% (BldA) [Mass fraction] 94 % Kaylinn Dokken [facility] 06-30-2023 23:24-0500 Systolic blood pressure 130 mm[Hg] Kaylinn Dokken [facility] 06-30-2023 22:30-0500 Body temperature 97.88 [degF] Kaylinn Dokken [facility] 06-30-2023 22:30-0500 Diastolic blood pressure 112 mm[Hg] Kaylinn Dokken [facility] 06-30-2023 22:30-0500 Heart rate 114 /min Kaylinn Dokken [facility] 06-30-2023 22:30-0500 Mean blood pressure 120 mm[Hg] Kaylinn Dokken [facility] 06-30-2023 22:30-0500 Respiratory rate 18 /min Kaylinn Dokken [facility] 06-30-2023 22:30-0500 SaO2% (BldA) [Mass fraction] 100 % Kaylinn Dokken [facility] 06-30-2023 22:30-0500 Systolic blood pressure 137 mm[Hg] Kaylinn Dokken [facility] 06-30-2023 19:33-0500 Body temperature 97.7 [degF] Koby Masterson [facility] 06-30-2023 19:33-0500 Heart rate 123 /min Koby Masterson [facility] 04-26-2023 15:19-0400 Blood Pressure Location Micheline [...] Diastolic blood pressure 51 mm[Hg] Jeff Cross [facility] 04-04-2023 16:30-0400 Heart rate 39 /min Jeff Cross [facility] 04-04-2023 16:30-0400 Respiratory rate 14 /min Jeff Cross [facility] 04-04-2023 16:30-0400 SaO2% (BldA) [Mass fraction] 99 % Jeff Cross [facility] 04-04-2023 16:30-0400 Systolic blood pressure 145 mm[Hg] Jeff Tay [facility] 04-04-2023 15:52-0400 Body temperature 98.06 [degF] Jeff Cross [facility] 04-04-2023 15:52-0400 Diastolic blood pressure 81 mm[Hg] Jeff Tay [facility] 04-04-2023 15:52-0400 Heart rate 66 /min Jeff Tay [facility] 04-04-2023 15:52-0400 Respiratory rate 14 /min Jeff Tay [facility] 04-04-2023 15:52-0400 SaO2% (BldA) [Mass fraction] 99 % Jeff Tay [facility] 04-04-2023 15:52-0400 Systolic blood pressure 161 mm[Hg] Jeff Tay [facility] 04-04-2023 14:52-0400 Diastolic blood pressure 79 mm[Hg] Jeff Tay [facility] 04-04-2023 14:52-0400 Heart rate 64 /min Jeff Tay [facility] 04-04-2023 14:52-0400 Respiratory rate 14 /min Jeff Tay [facility] 04-04-2023 14:52-0400 SaO2% (BldA) [Mass fraction] 100 % Jeff Tay [facility] 04-04-2023 14:52-0400 Systolic blood pressure 95 mm[Hg] Jeff Tay [facility] 04-04-2023 14:07-0400 Body temperature 98.06 [degF] Jeff Tay [facility] 04-04-2023 13:52-0400 Body temperature 98.24 [degF] Jeff Tay [facility] 04-04-2023 13:52-0400 Heart rate 107 /min Jeff Tay [facility] 01-28-2023 21:23-0400 Body temperature 97.7 [degF] [facility] 01-28-2023 21:23-0400 Diastolic blood pressure 78 mm[Hg] [facility] 01-28-2023 21:23-0400 Heart rate 82 /min [facility] 01-28-2023 21:23-0400 Respiratory rate 18 /min [facility] 01-28-2023 21:23-0400 SaO2% (BldA) [Mass fraction] 97 % [facility] 01-28-2023 21:23-0400 Systolic blood pressure 125 mm[Hg] [facility] 09-01-2022 14:01-0500 Diastolic blood pressure 75 mm[Hg] Yennifer Iraheta [facility] 09-01-2022 14:01-0500 Mean blood pressure 91 mm[Hg] Yennifer Esequiel [facility] 09-01-2022 14:01-0500 Systolic blood pressure 122 mm[Hg] Yennifer Esequiel [facility] 09-01-2022 13:48-0500 Blood Pressure Location Mohstacia Esequiel [facility] 09-01-2022 13:48-0500 Diastolic blood pressure 79 mm[Hg] Yennifer Esequiel [facility] 09-01-2022 13:48-0500 Heart rate 60 /min Yennifer Esequiel [facility] 09-01-2022 13:48-0500 SaO2% (BldA) [Mass fraction] 98 % Yennifer Esequiel [facility] 09-01-2022 13:48-0500 Systolic blood pressure 149 mm[Hg] Mohstacia Esequiel [facility] 06-13-2022 08:54-0400 Blood Pressure Location Yennifer Iraheta [facility] 06-13-2022 08:54-0400 Diastolic blood pressure 68 mm[Hg] Yennifer Iraheta [facility] 06-13-2022 08:54-0400 Heart rate 75 /min Yennifer Iraheta [facility] 06-13-2022 08:54-0400 SaO2% (BldA) [Mass fraction] 96 % Yennifer Iraheta [facility] 06-13-2022 08:54-0400 Systolic blood pressure 132 mm[Hg] Yennifer Iraheta [facility] 03-03-2022 09:59-0400 Blood Pressure Location CARMINA GARRISON [facility] 03-03-2022 09:59-0400 Diastolic blood pressure 89 mm[Hg] CARMINADOMINGA GARRISON [facility] 03-03-2022 09:59-0400 Heart rate 77 /min CARMINA GARRISON [facility] 03-03-2022 09:59-0400 Systolic blood pressure 140 mm[Hg] CARMINA OLMEDORY [facility] 02-15-2022 13:17-0400 Body temperature 98.6 [degF] Jeff Cross [facility] 02-15-2022 13:17-0400 Diastolic blood pressure 62 mm[Hg] Jeff Tay [facility] 02-15-2022 13:17-0400 Heart rate 86 /min Jeff Wadee [facility] 02-15-2022 13:17-0400 Respiratory rate 18 /min Jeff Wadee [facility] 02-15-2022 13:17-0400 SaO2% (BldA) [Mass fraction] 99 % Jeff Wadee [facility] 02-15-2022 13:17-0400 Systolic blood pressure 151 mm[Hg] Jeff Wadee [facility] 12-24-2021 17:39-0400 Body temperature 97.7 [degF] Jeff Wadee [facility] 12-24-2021 17:39-0400 Diastolic blood pressure 70 mm[Hg] Jeff Wadee [facility] 12-24-2021 17:39-0400 Heart rate 81 /min Jeff Wadee [facility] 12-24-2021 17:39-0400 Respiratory rate 15 /min Jeff Wadee [facility] 12-24-2021 17:39-0400 SaO2% (BldA) [Mass fraction] 100 % Jeff Wadee [facility] 12-24-2021 17:39-0400 Systolic blood pressure 163 mm[Hg] Jeff Wadee [facility] Encounters Encounter Date Encounter Type Care Provider Facility Start: 02-18-2025 End: 02-18-2025 ambulatory MARCO [facility] Start: 02-10-2025 End: 02-10-20[facility] Start: 01-23-2025 End: 01-23-2025 ambulatory MARJ CARCAMO [facility] Start: 01-22-2025 End: 01-22-2025 Shaggy Brian MD Work Phone: [facility] Start: 01-22-2025 End: 01-22-2025 Shaggy Brian MD Work Phone: [facility] Start: 01-22-2025 End: 01-22-2025 Office outpatient visit 25 minutes Hannah Brian MD Work Phone: [facility] Comment on above: Atrial fibrillation, persistent (HCC) (CMS/HCC) (Primary Dx); 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; Mitral valve regurgitation due to cardiomyopathy (HCC) (CMS/HCC); Anxiety Start: 01-22-2025 End: 01-22-2025 ambulatory HANNAH BRIAN Not Available Start: 01-15-2025 Evaluation and manag ement of inpatient [facility] Start: 01-14-2025 Evaluation and manag ement of inpatient [facility] Start: 01-14-2025 ambulatory [facility] Start: 01-14-2025 End: 01-15-2025 Evaluation and management of inpatient [facility] Start: 01-13-2025 End: 01-13-2025 Refill Alisha [facility] Comment on above: Anxiety Start: 01-07-2025 End: 01-07-2025 Office outpatient visit 25 minutes Hannah Brian MD Work Phone: [facility] Comment on above: Atrial fibrillation, persistent (HCC) (CMS/HCC) (Primary Dx); skilled nursing 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; Primary hypertension (CMS/HCC); Anxiety; Panic attack (CMS/HCC) Start: 01-07-2025 End: 01-07-2025 ambulatory HANNAH BRIAN Not Available Start: 01-07-2025 End: 01-07-2025 Shaggy Brian MD Work Phone: [facility] Start: 01-07-2025 End: 01-07-2025 Shaggy Brian MD Work Phone: [facility] Start: 12-23-2024 ambulatory [facility] Start: 12-17-2024 End: 12-17-2024 Office outpatient visit [...] Comment on above: Anxiety Start: 12-13-2024 ambulatory [facility] Start: 11-29-2024 End: 11-29-2024 ambulatory [facility] Start: 11-25-2024 End: 11-25-2024 Shaggy Brian MD Work Phone: [facility] Start: 11-25-2024 End: 11-25-2024 Shaggy Brian MD Work Phone: [facility] Start: 11-25-2024 End: 11-25-2024 Office outpatient visit 25 minutes Hannah Brian MD Work Phone: [facility] Comment on above: Acute cough (Primary Dx); Bruising; 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; Atrial fibrillation, persistent (HCC) (CMS/HCC); Primary hypertension (CMS/HCC); Cardiomyopathy, unspecified Start: 11-25-2024 End: 11-25-2024 ambulatory HANNAH BRIAN Not Available Start: 11-18-2024 End: 11-21-2024 External Result Encounter Hannah Brian MD Work Phone: [facility] External Department Unsolicited Start: 11-18-2024 End: 11-21-2024 External Result Encounter Hannah Brian MD Work Phone: [facility] External Department Unsolicited Start: 11-18-2024 End: 11-18-2024 Office outpatient visit 25 minutes Hannah Brian MD Work Phone: [facility] Comment on above: Acute cough (Primary Dx); Hematuria, unspecified type; 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; Atrial fibrillation, persistent (HCC) (CMS/HCC); Primary hypertension (CMS/HCC) Start: 11-18-2024 End: 11-18-2024 ambulatory HANNAH BRIAN Not Available Start: 11-15-2024 End: 11-18-2024 Refill Hannah Brian MD Work Phone: [facility] Comment on above: Anxiety Start: 10-22-2024 End: 10-22-2024 ambulatory [facility] Start: 10-08-2024 End: 10-08-2024 Bamboo flowsheet Sherlyn ABRAMS Work Phone: [facility] Start: 10-08-2024 End: 10-08-2024 Bamboo flowsheet Sherlyn ABRAMS Work Phone: [facility] Start: 10-08-2024 End: 10-08-2024 Office outpatient visit 25 minutes Sherlyn ABRAMS Work Phone: [facility] Comment on above: Primary hypertension (CMS/HCC) (Primary Dx); Atrial fibrillation, persistent (HCC) (CMS/HCC); Atherosclerosis of aorta (CMS/HCC); Panic attack (CMS/HCC) Start: 10-08-2024 End: 10-08-2024 ambulatory SHERLYN Carey SHINE Not Available Start: 09-20-2024 End: 09-20-2024 Telephone encounter Hannah Brian MD Work Phone: [facility] Comment on above: Med Refill Start: 08-20-2024 End: 08-20-2024 Refill Hannah Brian MD Work Phone: [facility] Comment on above: Anxiety Start: 08-12-2024 End: 08-12-2024 Office outpatient visit 25 minutes Shelley A Kadenamalbertinar PROSTHETIC ASSISTANT Work Phone: [facility] Comment on above: Dysuria (Primary Dx) ; Urinary frequency; Atrial fibrillation, persistent (HCC) (CMS/HCC); skilled nursing 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; BMI 22.0-22.9, adult Start: 08-12-2024 End: 08-12-2024 ambulatory SHELLEY A GILILLER Not Available Start: 08-12-2024 End: 08-12-2024 Bamboo flowsheet Shelley A Donnamiller PROSTHETIC ASSISTANT Work Phone: [facility] Start: 08-12-2024 End: 08-12-2024 Bamboo flowsheet Shelley A Donnamiller PROSTHETIC ASSISTANT Work Phone: [facility] Start: 08-05-2024 End: 08-05-2024 Office outpatient visit 25 minutes Rodolfo Boo DO Work Phone: [facility] Comment on above: Postmenopausal atrop hic vaginitis; Breast cancer screening by mammogram Start: 08-05-2024 End: 08-05-2024 ambulatory RODOLFO BOO Not Available Start: 07-30-2024 End: 07-30-2024 ambulatory [facility] Start: 07-22-2024 End: 07-23-2024 Refill Hannah Brian MD Work Phone: [facility] Comment on above: Anxiety Start: 07-02-2024 End: 07-02-2024 [facility] Start: 07-01-2024 End: 07-01-2024 Office outpatient visit [...] FM Start: 06-27-2024 End: 06-27-2024 ambulatory PEGGY JOHNSONLAS ARAVIND Facility:[facility] Start: 06-27-2024 End: 06-27-2024 Patient encounter procedure Raphael Goldsmith MD Work Phone: Urology Comment on above: Feeling of incomplet e bladder emptying (Primary Dx); Stricture of female urethra, unspecified stricture type Start: 06-10-2024 ambulatory [facility] Start: 06-10-2024 End: 06-10-2024 ambulatory [facility] Start: 06-03-2024 End: 06-03-2024 ambulatory [facility] Facility:[facility] Start: 06-03-2024 End: 06-03-2024 Patient encounter procedure MARCO YAO [facility] Start: 05-27-2024 End: 05-27-2024 ambulatory [facility] Start: 05-07-2024 End: 05-07-2024 Patient encounter procedure Raphael Goldsmith MD Work Phone: Urology Comment on above: Stricture of female urethra, unspecified stricture type (Primary Dx); Feeling of incomplete bladder emptying Start: 05-07-2024 End: 05-10-2024 ambulatory Raphael Goldsmith MD Work Phone: Urology Start: 03-28-2024 End: 03-28-2024 ambulatory HANNAH Haley SNEHAL Not Available Start: 03-26-2024 End: 03-26-2024 ambulatory [facility] Start: 03-06-2024 End: 03-06-2024 ambulatory RADHA OLIVAS [facility] Start: 02-28-2024 End: 02-28-2024 ambulatory [facility] Start: 02-28-2024 End: 02-28-2024 ambulatory [facility] Start: 02-27-2024 End: 02-27-2024 ambulatory HANNAH M SNEHAL Not Available Start: 02-02-2024 End: 02-02-2024 ambulatory SHERLYN SHINE Not Available Start: 01-24-2024 ambulatory Micheline Rothman ty:WILL Silva Start: 12-22-2023 Refill Ana Rivas APRN.CNP Work Phone: Cardiology Comment on above: Refill Request Start: 11-22-2023 End: 11-22-2023 Emergency department patient visit Jayson Calloway [facility] Start: 11-13-2023 End: 11-13-2023 ambulatory Hannah Brian Facility:[facility] Start: 11-13-2023 End: 11-13-2023 Patient encounter procedure Hannah Brian [facility] Start: 10-16-2023 Telephone encounter Alea lynn MD Work Phone: Cardiology Comment on above: Patient Update Start: 10-16-2023 End: 10-16-2023 Patient encounter procedure Raphael Goldsmith MD Work Phone: Urology Comment on above: Feeling of incomplet e bladder emptying (Primary Dx); Stricture of female urethra, unspecified stricture type; Severe protein-calorie malnutrition (HCC) Start: 10-16-2023 End: 10-16-2023 ambulatory PEGGY NAZARIO Facility:[facility] Start: 10-05-2023 End: 10-05-2023 Emergency department patient visit Koby Masterson [facility] Start: 10-02-2023 Telephone encounter Alea lynn [...] Non-ischemic cardiomyopathy (HCC); Persistent atrial fibrillation (HCC); skilled nursing 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; History of cardioversion; Primary hypertension Feeling of incomplet e bladder emptying (Primary Dx); Stricture of female urethra, unspecified stricture type; Severe protein-calorie malnutrition (HCC) Start: 09-21-2023 Telephone encounter Alea lynn MD Work Phone: Cardiology Comment on above: Medication Problem Start: 09-18-2023 End: 09-18-2023 Office outpatient visit 40 minutes Peggy Nazario MD Work Phone: [facility] Comment on above: Mitral valve insuffi ciency, unspecified etiology (Primary Dx); Anxiety; Paroxysmal atrial fibrillation (CMS/HCC); Other cardiomyopathy (CMS/HCC); Hospital discharge follow-up; Other thrombophilia (D68.69); Atherosclerosis of aorta (I70.0) Start: 09-17-2023 Telephone encounter Carmina Thomas ric SALEH.PASSENGER TRAIN BRAKER Work Phone: Cardiothoracic Comment on above: Medication Problem Start: 09-17-2023 End: 09-17-2023 Emergency department patient visit Parveen Ayers [facility] Start: 09-13-2023 Refill Peggy Nazario MD Work Phone: [facility] Comment on above: Anxiety Start: 09-12-2023 Refill Peggy Nazario MD Work Phone: [facility] Comment on above: Gastroesophageal ref lux disease without esophagitis Start: 09-12-2023 End: 09-12-2023 Emergency department patient visit Parveen Ayers [facility] Start: 08-28-2023 End: 08-28-2023 ambulatory PEGGY NAZARIO Facility:[facility] Start: 08-24-2023 Evaluation and manag ement of inpatient AMINA PETERSEN Facility:[facility] Start: 08-23-2023 End: 08-24-2023 Patient encounter procedure Gianni Villalba DO Work Phone: [facility] Start: 08-23-2023 End: 08-24-2023 ambulatory Gianni Shellsantiago LINDSEY Work Phone: Cardiology Start: 08-11-2023 End: 08-11-2023 Postop follow up visit related to original px Peggy Nazario MD Work Phone: [facility] Comment on above: Anxiety (Primary Dx) ; Chronic fatigue syndrome Start: 07-24-2023 Telephone encounter Micheline goldberg MD Work Phone: Cardiothoracic Comment on above: Insurance Inquiry Start: 07-21-2023 End: 07-21-2023 Admission to same day surgery center Johan HENRIQUEZ [facility] Start: 07-21-2023 End: 07-21-2023 ambulatory Johan HENRIQUEZ Facility:[facility] Start: 07-20-2023 End: 07-20-2023 ambulatory XXXX NONE Facility:[facility] Start: 07-20-2023 End: 07-20-2023 Patient encounter procedure Johan HENRIQUEZ [facility] Start: 07-19-2023 End: 07-19-2023 ambulatory Micheline BROOKS Facility: [place] Start: 07-07-2023 End: 07-07-2023 Emergency department patient visit Jeff Tay [facility] Start: 07-04-2023 End: 07-06-2023 Pre-admission assessment Johan HENRIQUEZ [facility] Start: 07-02-2023 End: 07-06-2023 ambulatory Faustinoanefo OJUKWU Facility:[facility] Start: 07-02-2023 End: 07-06-2023 Observation Noman PATTON [facility] Start: 06-30-2023 End: 07-01-2023 Emergency department patient visit Koby Masterson [facility] Start: 04-26-2023 End: 04-26-2023 Patient encounter procedure Micheline BROOKS [facility] Start: 04-04-2023 End: 04-04-2023 Emergency department patient visit Jeff Cross [facility] Start: 01-28-2023 End: 01-28-2023 Emergency department patient visit Layton Carwford [facility] Start: 12-05-2022 End: 12-05-2022 Patient encounter procedure Peggy Nazario [facility] Start: 10-25-2022 End: 10-25-2022 Patient encounter procedure Micheline BROOKS [facility] Start: 10-03-2022 End: 10-03-2022 Patient encounter procedure Asuncion Reyna [facility] Juliann Start: 09-01-2022 End: 09-01-2022 Patient encounter procedure Julianstacia ThomasElise Iraheta [facility] Start: 07-12-2022 End: 07-12-2022 Patient encounter procedure Yennifer Iraheta [facility] Start: 06-13-2022 End: 06-13-2022 Patient encounter procedure Julianstacia Iraheta [facility] Start: 03-03-2022 End: 03-03-2022 Patient encounter procedure CARMINA GARRISON [facility] [place] Start: 02-15-2022 End: 02-15-2022 Emergency department patient visit Jeff Wadee [facility] Start: 12-24-2021 End: 12-24-2021 Emergency department patient visit Jeff Cross [facility] Start: 08-11-2021 End: 11-10-2021 Patient encounter procedure Peggy Nazario [facility] Procedures Date Procedure Procedure Detail Performing [...] stick/tabl et rgnt non-auto w/o micrscp Sherlyn ABRAMS Work Phone: Start: 05-07-2024 Urnls dip stick/tabl [...] Screening for malign ant neoplasm of colon [facility] Start: 01-30-2028 Urine microalbumin profile DTa P,Tdap,Td Vaccine (5 - Td or Tdap) [facility] Start: 02-21-2027 Diabetes Screening Diabetes Screenin [facility] Start: 09-26-2026 Diabetes Screening Diabetes Screenin [facility] Start: 08-31-2026 Diabetes Screening Diabetes Screenin [facility] Start: 04-09-2025 End: 04-09-2025 Patient encounter procedure 04/09/2025 3:20 PM EDT Office Visit [facility] [address] [place] [address] Hannah Brian MD [address] [place] [address] [facility] Start: 01-22-2025 End: 01-22-2025 Patient encounter procedure 01/22/2025 2:00 PM EDT Office Visit [facility] [address] [place] [address] Hannah Brian MD [address] [place] [address] Arrived [facility] Comment on above: Arrived Start: 01-07-2025 End: 01-07-2025 Patient encounter procedure [facility] Comment on above: Arrived Start: 12-17-2024 End: 12-17-2024 Patient encounter procedure [facility] Comment on above: Arrived Start: 12-17-2024 End: 12-17-2025 Bacteria identified in Urine by Culture Urine culture Microbiology Routine Right flank pain Dysuria Urinary frequency Expected: 12/17/2024 (Approximate), Expires: 12/17/2025 [facility] Work Phone: Comment on above: Expected: 12/17/2024 (Approximate), Expires: 12/17/2025 Start: 11-25-2024 End: 11-25-2024 Patient encounter procedure 11/25/2024 11:00 AM EDT Office Visit [facility] [address] [place] [address] Hannah Brian MD [address] [place] [address] Arrived [facility] Comment on above: Arrived Start: 11-18-2024 End: 11-18-2025 Bacteria identified in Urine by Culture Urine culture Microbiology Routine Hematuria, unspecified type Expected: 11/18/2024 (Approximate), Expires: 11/18/2025 [facility] Work Phone: Comment on above: Expected: 11/18/2024 (Approximate), Expires: 11/18/2025 Start: 11-08-2024 Pneumococcal Vaccine : 65+ Years (1 of 2 - PCV) Pneumococcal Vaccine: 65+ Years (1 of 2 - PCV) [facility]: Postponed from 03/18 (Patient Refused) Start: 10-08-2024 End: 10-08-2024 Patient encounter procedure [facility] Comment on above: Arrived Start: 09-26-2024 BP Controlled (<130/80) BP Controlle d (<130/80) [facility] Start: 08-28-2024 BP Controlled (<130/80) BP Controlle d (<130/80) [facility] Start: 08-12-2024 End: 08-12-2024 Patient encounter procedure 08/12/2024 4:00 PM EST Office Visit [facility] [address] [place] [address] Shelley Aviles NP [address] [place] [address] Arrived [facility] Comment on above: Arrived Start: 08-05-2024 End: 08-05-2024 Patient encounter procedure 08/05/2024 2:45 PM EST Office Visit [facility] [address] [place] [address] Rodolfo Boo, DO [address] [place] [address] [facility] Start: 08-05-2024 End: 10-06-2025 DBT Breast - bilateral screening Bilateral screening mammogram with tomosynthesis Imaging Routine Breast cancer screening by mammogram Expected: 08/05/2024, Expires: 10/06/2025 [facility] Work Phone: Comment on above: Expected: 08/05/2024 , Expires: 10/06/2025 Start: 07-29-2024 End: 07-29-2024 Patient encounter procedure 07/29/2024 3:45 PM EST Office Visit [facility] [address] [place] [address] Rodolfo Boo, DO [address] [place] [address] [facility] Start: 07-24-2024 Medicare Annual Well ness (AWV) Medicare Annual Wellness (AWV) [facility] Start: 07-01-2024 End: 07-01-2024 Patient encounter procedure 07/01/2024 3:30 PM EST Office Visit [facility] [address] [place] [phone] Sherlyn Shine PA [address] [place] [address] Arrived [facility] Comment on above: Arrived Start: 07-01-2024 End: [...] 11:10 AM EDT Office Visit Urology [address] [address] Raphael Goldsmith MD [address] [place] [address] 6 month follow up per cc chart Urology Comment on above: 6 month follow up pe r cc chart Start: 04-14-2024 Covid-19 Vaccine ( season) Covid-19 Vaccine ( season) [facility] Start: 04-14-2024 Influenza vaccination C [facility] Start: 11-10-2023 End: 11-10-2023 Patient encounter procedure 11/10/2023 1:00 PM EDT Office Visit [facility] [address] [place] [phone] Peggy Nazario MD [address] [place] [address] [facility] Start: 11-08-2023 End: 02-07-2024 Basic metabolic 2000 panel - Serum or Plasma BASIC METABOLIC PNL Lab Routine Non-rheumatic mitral regurgitation Persistent atrial fibrillation (HCC) Non-ischemic cardiomyopathy (HCC) Chronic HFrEF (heart failure with reduced ejection fraction) (HCC) Expected: 11/08/2023 (Approximate), Expires: 02/07/2024 [facility] Work Phone: Comment on above: Expected: 11/08/2023 (Approximate), Expires: 02/07/2024 Start: 11-08-2023 End: 09-26-2024 ECG COMPLETE ECG COMPLETE ECG Routine Non-rheumatic mitral regurgitation Persistent atrial fibrillation (HCC) Non-ischemic cardiomyopathy (HCC) Chronic HFrEF (heart failure with reduced ejection fraction) (HCC) Expected: 11/08/2023 (Approximate), Expires: 09/26/2024 [facility] Work Phone: Comment on above: Expected: 11/08/2023 (Approximate), Expires: 09/26/2024 Start: 10-25-2023 End: 01-24-2024 Basic metabolic 2000 panel - Serum or Plasma BASIC METABOLIC PNL Lab Routine Non-rheumatic mitral regurgitation Persistent atrial fibrillation (HCC) Non-ischemic cardiomyopathy (HCC) Chronic HFrEF (heart failure with reduced ejection fraction) (HCC) Expected: 10/25/2023, Expires: 01/24/2024 [facility] Work Phone: Comment on above: Expected: 10/25/2023 , Expires: 01/24/2024 Start: 10-25-2023 End: 09-26-2024 ECG COMPLETE ECG COMPLETE ECG Routine Non-rheumatic mitral regurgitation Persistent atrial fibrillation (HCC) Non-ischemic cardiomyopathy (HCC) Chronic HFrEF (heart failure with reduced ejection fraction) (HCC) Expected: 10/25/2023, Expires: 09/26/2024 [facility] Work Phone: Comment on above: Expected: 10/25/2023 , Expires: 09/26/2024 Start: 10-10-2023 End: 01-09-2024 Basic metabolic 2000 panel - Serum or Plasma BASIC METABOLIC PNL Lab Routine Non-rheumatic mitral regurgitation Persistent atrial fibrillation (HCC) Non-ischemic cardiomyopathy (HCC) Chronic HFrEF (heart failure with reduced ejection fraction) (HCC) Expected: 10/10/2023 (Approximate), Expires: 01/09/2024 [facility] Work Phone: Comment on above: Expected: 10/10/2023 (Approximate), Expires: 01/09/2024 Start: 10-10-2023 End: 09-26-2024 ECG COMPLETE ECG COMPLETE ECG Routine Non-rheumatic mitral regurgitation Persistent atrial fibrillation (HCC) Non-ischemic cardiomyopathy (HCC) Chronic HFrEF (heart failure with reduced ejection fraction) (HCC) Expected: 10/10/2023 (Approximate), Expires: 09/26/2024 [facility] Work Phone: Comment on above: Expected: 10/10/2023 (Approximate), Expires: 09/26/2024 Start: 10-06-2023 End: 10-06-2023 Patient encounter procedure 10/06/2023 1:00 PM EST Office Visit [facility] [address] [place] [address] Peggy Nazario MD [address] [place] [address] [facility] Start: 09-26-2023 End: 12-26-2023 Basic metabolic 2000 panel - Serum or Plasma BASIC METABOLIC PNL Lab Routine Non-rheumatic mitral regurgitation Persistent atrial fibrillation (HCC) Non-ischemic cardiomyopathy (HCC) Chronic HFrEF (heart failure with reduced ejection fraction) (HCC) Expected: 09/26/2023, Expires: 12/26/2023 [facility] Work Phone: Comment on above: Expected: 09/26/2023 , Expires: 12/26/2023 Start: 08-14-2023 Advance Directive Discussion Advance Directive Discussion [facility] Start: 08-14-2023 Behavioral Health Screening Behavioral Health Screening [facility] Start: 08-14-2023 Depression Assessment Depression Ass essment [facility] Start: 04-14-2023 Covid-19 Vaccine ( season) Covid-19 Vaccine () [facility] Start: 04-14-2023 Influenza vaccination Influenza Vacc ine (#1) [facility] Start: 2023 RSV Vaccine (1 - 1-d ose 75+ series) RSV Vaccine (1 - 1-dose 75+ series) [facility] Start: 08-14-2022 Advance Directive Discussion Advance Directive Discussion [facility] Start: 08-14-2022 Depression Assessment Depression Ass essment [facility] Start: 02-15-2019 Colonoscopy Colonoscopy [facility] Start: 02-15-2019 Colorectal Cancer Screening Colorectal Cancer Screening [facility] Start: 02-15-2019 Screening for malign ant neoplasm of colon [facility] Start: 2013 Bone Density Screening Bone Density Screening [facility] Start: 2013 Pneumococcal Vaccine : 65+ (1 - PCV) Pneumococcal Vaccine: 65+ (1 - PCV) [facility] Start: 2013 Pneumococcal Vaccine : 65+ (1 of 1 - PCV) Pneumococcal Vaccine: 65+ (1 of 1 - PCV) [facility] Start: 2013 Screening for osteoporosis Bone Dens ity Screening [facility] Start: 2008 RSV Vaccine (1 - 1-d ose 60+ series) RSV Vaccine (1 - 1-dose 60+ series) [facility] Start: 1998 Shingrix Vaccine (1 of 2) Abdi grix Vaccine (1 of 2) [facility] Start: 1993 Cologuard (FIT-DNA) Cologuard (FIT-D NA) [facility] Start: [address] Colonography [facility] Start: 1993 Diabetes Screening Diabetes Screenin g [facility] Start: 1993 Fecal Occult Blood Fecal Occult Bloo d [facility] Start: 1993 Lipid 1996 panel - S theresa or Plasma Lipid Screening [facility] Start: 1993 Lipid panel Lipid Screening [facility] Start: 1993 Screening for malign ant neoplasm of colon [facility] Start: 1993 Sigmoidoscopy [facility]oscopy [facility] Start: 1967 Pneumococcal Vaccine : 65+ Years (1 of 2 - PCV) Pneumococcal Vaccine: 65+ Years (1 of 2 - PCV) [facility] Start: 1966 Annual PCP Team Contract Mail Carrier luis Disease Visit Annual PCP Team Chronic Disease Visit [facility] Start: 1966 BP Controlled (<130/80) BP Controlle d (<130/80) [facility] Start: 1966 Depression Screening Depression Scre ening [facility] Start: 1966 Hepatitis C Screening Hepatitis C [facility] Start: 1966 Hepatitis C screening Hepatitis C [facility] Start: 1954 Pneumococcal Vaccine : 65+ Years (1 - PCV) Pneumococcal Vaccine: 65+ Years (1 - PCV) [facility] Start: 1954 Pneumococcal Vaccine : 65+ Years (1 of 2 - PCV) Pneumococcal Vaccine: 65+ Years (1 of 2 - PCV) [facility] Start: 1948 Covid-19 Vaccine (#1) Covid-19 Vacci ne (#1) [facility] Start: 1948 Screening for malign ant neoplasm of colon [facility] Cystourethroscopy CYSTO.PANENDO Procedures Routine Feeling of incomplete bladder emptying Stricture of female urethra, unspecified stricture type Ordered: 09/26/2023 [facility] Work Phone: Comment on above: Ordered: 09/26/2023 Dilat female urethra w/suppository&/instlj ini URETHRAL DILATION(FEMALE) Procedures Routine Stricture of female urethra, unspecified stricture type Feeling of incomplete bladder emptying Ordered: 05/07/2024 [facility] Work Phone: Comment on above: Ordered: 05/07/2024 [facility] Immunizations Immunization Date Immunization Notes Care Provider Olivia valdez 01-29-2018 tetanus toxoid, reduced diphtheria toxoid, and acellular pertussis vaccine, adsorbed Peggy Nazario MD Work Phone: [facility] 02-16-2016 tetanus and diphtheria toxoids, adsorbed, preservative free, for adult use (5 Lf of tetanus toxoid and 2 Lf of diphtheria toxoid) Peggy Nazario MD Work Phone: [facility] 12-14-2009 diphtheria, tetanus toxoids and pertussis vaccine Peggy Nazario MD Work Phone: [facility] 12-30-2004 diphtheria and tetanus toxoids, adsorbed for pediatric use Peggy Nazario MD Work Phone: [facility] NEGATED: Highlighted row has not occurred!07-20-2023 influenza virus vaccine, unspecified formulation Johan HENRIQUEZ [facility] Payers Date Payer Category Payer Blue [place] [employer] BCBS [id number] 2016 Unknown [id number] 2016 Unknown [id number] 2013 Medicare [id number] 2013 Medicare [id number] 1948 Unknown [id number] 2.16.840.1.766057.3.579. 2.72 1948 Unknown [id number] 2.16840.1.832354.3.579. 2.72 1948 Unknown [id number] 2.840.1.090060.3.579. 2.727 1948 Unknown [id number] 2.16.840.1.715519.3.579. 2.727 1948 Unknown [id number] 2.16.840.1.798490.3.579. 2. 1948 Unknown [id number] 2.16.840.1.581303.3.579. 2. 1948 Unknown [id number] 2.16840.1.406387.3.579. 2. 1948 Unknown [id number] 2.840.1.050946.3.579. 2. 1948 Unknown [id number] 2.840.1.317459.3.579. 2. 1948 Unknown [id number] 2.840.1.934784.3.579. 2. 1948 Unknown [id number] 2.840.1.030429.3.579. 2. 1948 Unknown [id number] 2.840.1.240476.3.579. 2. 1948 Unknown [id number] 2.840.1.847168.3.579. 2. 1948 Unknown [id number] 2.840.1.530740.3.579. 2.1258 1948 Unknown [id number] 2.840.1.137627.3.579. 2.1258 1948 Unknown [id number] 2.840.1.125783.3.579. 2.1258 1948 Unknown [id number] 2.16840.1.346438.3.579. 2.1258 1948 Unknown [id number] 2.16.840.1.371831.3.579. 2.125 1948 Unknown [id number] 2.840.1.011010.3.579. 2.1259 1948 Unknown [id number] 2.16.840.1.344273.3.579. 2.9 1948 Unknown [id number] 2.16.840.1.966154.3.579. 2.1258 1948 Unknown [id number] 2.16840.1.939313.3.579. 2.1258 1948 Unknown [id number] 2.16.840.1.091783.3.579. 2.1258 1948 Unknown [id number] 2.16840.1.120468.3.579. 2.1258 1948 Unknown [id number] 2.16840.1.296626.3.579. 2.1258 Social History Date Type Detail Facility Start: 02-23-2021 End: 04-12-2023 Tobacco smoking status Ex-smoker (finding) [facility] Comment on above: Denies Start: 07-08-2020 End: 11-25-2024 Sex Assigned At Female [facility] Tobacco smoking status Never [facility] Comment on above: Denies History of tobacco use Current smoker [facility] Start: 10-24-2017 End: 04-12-2023 Tobacco use and exposure Smokeless tobacco non-user [facility] Start: 10-24-2017 Alcohol intake Current drinke r of alcohol (finding) [facility] Start: 07-08-2020 End: 11-25-2024 History of Social function [facility] Start: 09-26-2012 End: 08-23-2023 Tobacco Comment Quit 1996. social smoker mostly [facility] Start: 1948 Sex Assigned At Not on file [facility] History of tobacco use Cigarette Smoker [facility] Start: 09-12-2023 End: 01-22-2025 Alcohol intake Ex-drinker (finding) [facility] How [...] Health [facility] ionnaire 2 item (PHQ-2) [Reported] [facility] 11-22-2023 Functional Status N/A [facility] 10-05-2023 Functional Status N/A [facility] 09-17-2023 Functional Status N/A [facility] 09-12-2023 Functional Status N/A [facility] 07-21-2023 Functional Status No [facility] 07-20-2023 Functional Status No [facility] 07-07-2023 Functional Status N/A [facility] 07-03-2023 Functional Status N/A [facility] 07-02-2023 Functional Status [facility] 06-30-2023 Functional Status N/A [facility] 04-26-2023 Functional Status N/A [facility] 04-04-2023 Functional Status N/A [facility] 01-28-2023 Functional Status N/A [facility] 10-19-2022 Functional Status N/A [facility] 10-03-2022 Functional Status N/A [facility] 09-01-2022 Functional Status No [facility] 06-13-2022 Functional Status No [facility] 03-03-2022 Functional Status N/A [facility] 02-15-2022 Functional Status N/A [facility] Clinical Notes 12-24-2021 to 02-10-2025 Hannah Brian MD - 01/22/2025 2:00 PM EDTTelephone Prisca - Shelley Aviles NP - 01/13/2025 11:14 AM EDTTelephone Encounter - Shelley Aviles, PROSTHETIC ASSISTANT - 01/13/2025 11:14 AM EDT Note Date & Type Note Facility 02-10-2025 Note [place] Cardiology - [facility] Germain Asencio is a 74 y.o. year old female patient being seen for 30 day s/p MitraClip. Had echo 02/07/2025. C/o hematuria. She was seen in [facility] ED on 01/30 and said she was feeling a thumping . Says it must be the tricuspid valve . 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 The plan was to add Jardiance. There is note of her to being evaluated by CT surgery Dr. Sorto regarding candidacy for cardiac surgery and she was deemed high risk. She was also evaluated at [facility] cardiothoracic surgery. Initial workup for her mitral [...] showed severe mitral regurgitation and tricuspid regurgitation. On 01/14/2025 I proceeded with MitraClip. This was performed successfully. Her mitral regurgitation was reduced to trivial-mild. Today she is seen for 1 month follow-up with an echocardiogram. She has been doing much better. Currently NYHA class II symptoms. She has no significant chest pain. No leg edema. Her main complaint is on and off hematuria on the Eliquis. She also needs to undergo dental procedure. Review of Systems Constitutional: Positive for malaise/fatigue. Cardiovascular: Positive for dyspnea on exertion (improving) and palpitations. Hematologic/Lymphatic: Bruises/bleeds easily. Genitourinary: Positive for hematuria. Psychiatric/Behavioral: The patient is nervous/anxious. All other systems reviewed and are negative. Objective Visit Vitals BP 162/84 (BP Location: Left arm, Patient Position: S (more content not included)... [facility] 01-23-2025 Note Patient is here toda y for a follow up S/P mitral clip. Patient state she is doing good, she feels like she is getting blood to her body. Patient denies any cardiac symptoms at this time. Patient would like to talk about the Eliquis due to having blood in urine, its making here feel like she has a UTI. Review of Systems Constitutional: Negative. [facility] 01-23-2025 Note Cardiovascular Medic [facility] SUBJECTIVE Chief Complaint Patient presents with Valve [...] insomnia Urethral stricture Urinary frequency Urinary urgency skilled nursing 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 Paroxysmal atrial fibrillation [...] kg (134 lb) SpO2 97% BMI 22.30 kg/m??? OB Status Postmenopausal Smoking Status Former BSA 1.67 m??? Medications: Current Outpatient Medications: apixaban (Eliquis) [...] daily as directed., Disp: 45 tablet, Rfl: (more content not included)... 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 No changes in meds at this time Encouraged continued follow up with specialists Follow up if symptoms worsen or fail to improve. documented in this encounter [facility] 01-14-2025 Note Patient: Asya Asencio Procedure Summary Date: 01/14/25 Room / Location: [facility] MECHANICAL TEST TECHNICIAN 3 / [facility] (Cath) Anesthesia Start: 830 Anesthesia Stop: 121 Procedure: Transcatheter mitral valve repair Diagnosis: Nonrheumatic [...] no known notable events for this encounter. [facility] 01-14-2025 Note Patient intubated un bart observation by anesthesia [facility] 01-14-2025 Note Patient: Asya Asencio Procedure Information Anesthesia Start Date/Time: 01/14/25830 Procedure: Transcatheter mitral valve repair - case for general anesthesia approved by Dr Callejas, NPCR Location: [facility] MECHANICAL TEST TECHNICIAN 3 / [facility] (Cath) Providers: Nereyda Robins [...] with attending and resident. Additional Equipment Requests [facility] 01-14-2025 Note Arterial Line: Date/Time: 01/14/2025 9:04 [...] no complications. Additional notes: [place] Staffing Performed: resident/ROLL CLAMP OPERATOR/CAA Anesthesiologist: Lobo Machado MD Resident/ROLL CLAMP OPERATOR: Margaret Briceno MD Performed by: Micheline Mendoza MD Authorized by: Lobo Machado MD [facility] 01-14-2025 Note Airway Date/Time: 01/14/2025 8:52 AM Urgency: elective Airway not difficult General Information and Staff Patient location during procedure: [place] Anesthesiologist: Lobo Machado MD Resident/ROLL CLAMP OPERATOR/CAA: Margaret Briceno MD Performed: resident/ROLL CLAMP OPERATOR/CAA Indications and Patient Condition Indications for airway [...] 1 Number of other approaches attempted: 0 [facility] 01-13-2025 Telephone encounter Note Rx sent, HR OOO. OARRS appropriate. [facility] 01-13-2025 Miscellaneous Notes Rx sent, HR OOO. OARRS appropriate. HR OOO Pt needs refill on Lorazapam sent to [facility]. documented in this encounter [facility] 01-13-2025 Telephone encounter Note HR OOO [facility] 01-13-2025 Telephone encounter Note Pt needs refill on Lorazapam sent to [facility]. [facility] 01-07-2025 History of Present illness [...] in regimen. Continue to follow w/ specialists skilled nursing 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 - Continue to monitor for abnormal bruising or bleeding Primary hypertension (CMS/HCC) Stable, continue to monitor. No change in regimen. Anxiety Stable, continue to monitor. No change in regimen. Panic attack (CMS/HCC) Stable, continue to monitor. No change in regimen. documented in this encounter [facility] 12-25-2024 Note I have reviewed this patient's medical record, cardiac imaging. she has severe secondary (functional) mitral regurgitation, chronic heart failure with reduced ejection fraction and has persistent symptoms NYHA class III despite maximally tolerated guideline-directed medical therapy. I think that she is a good candidate for and would benefit from transcatheter [id number] repair. [facility] 12-23-2024 Note HI Cardiology - [facility] Subjective Asya Asencio is a 74 [...] insomnia Urethral stricture Urinary frequency Urinary urgency skilled nursing 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 Paroxysmal atrial fibrillation [...] At her recent visit with cardiology at [facility] on 09/26/2023 valsartan was stopped and low-dose lisinopril 5 mg once daily was added. The plan was to add Jardiance. There is note of her to being evaluated by CT surgery Dr. Sorto regarding candidacy for cardiac surgery and she was deemed high risk. She was also evaluated at [facility] cardiothoracic surgery. Initial workup for her mitral valve disease was started. Spironolactone was changed to half tablet twice a day instead of 1 tablet once a day. She was also recommended to start taking digoxin at night instead of the morning. At visit with sd on 10/16/2023 I increased her carvedilol to 6.25 mg twice daily. I asked for a cardiopulmonary excise test. After visit with me on 10/30/2023 I added Jardiance 10 mg daily to optimize GDMT for systolic heart failure. I also started her on amiodarone to attempt rhythm control. Following that she stopped both medications due to side effects. After visit with sd on 12/01/2023 I referred her to Marco [...] and are negativ (more content not included)... [facility] 12-17-2024 History of Present illness Narrative Images [...] to monitor for. documented in this encounter [facility] 11-25-2024 History of Present illness [...] meds and concerning sx to monitor for. skilled nursing 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 Atrial fibrillation, persistent (HCC) (CMS/HCC) Stable, continue to monitor. No change in regimen. Continue to follow w/ specialists Primary hypertension (CMS/HCC) Stable, continue to monitor. No change in regimen. Continue to follow w/ specialists documented in this encounter [facility] 11-18-2024 History of Present illness [...] POCT Urinalysis dipstick - Urine culture; Future skilled nursing 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 - continue to monitor for abnormal bruising/bleeding Atrial fibrillation, persistent (HCC) (CMS/HCC) Stable, continue to monitor. No change in regimen. Continue to follow w/ cardiology Primary hypertension (CMS/HCC) Stable, continue to monitor. No change in regimen. Continue to follow w/ cardiology documented in this encounter [facility] 10-22-2024 Note HI Electrophysiology Consult Note HI Cardiology - [facility] Reason for visit: Afib+ CMP 10/22/24 Patient underwent a CERTIFIED REGISTERED LOCKSMITH-P implant on 02/28/2024 when a CERTIFIED REGISTERED LOCKSMITH-P was placed in a submuscular fashion with [...] she has done very well since her CERTIFIED REGISTERED LOCKSMITH. Device check performed on 07/30/2024 shows patient being BiV paced 98% of the time 02/22/24 Pt here to discuss about CERTIFIED REGISTERED LOCKSMITH-P Prior HPI: Asya Asencio is a 74 [...] MR and subsequently had a visit with [facility] where evaluation was being done for surgical [...] Tobacco Use: Medium Risk (10/08/2024) Received from [employer] Patient History Smoking Tobacco Use: Former Smokeless Tobacco Use: Never Passive Exposure: Never Alcohol Use: Not At Risk (08/05/2024) Received from [employer] AUDIT-C Frequency of Alcohol Consumption: Never Average [...] Depression: Not at risk (08/05/2024) Received from [facility] PHQ-2 Patient Health Questionnaire-2 Score: [...] 3 LORazepam (Ativan) (more content not included)... [facility] 10-08-2024 History of Present illness Narrative Associated [...] carvedilol dosage, which was prescribed by her monorail hooker. She has been experiencing shortness of breath, [...] and plans to discuss this with her monorail hooker during her upcoming appointment. She has been [...] and plans to discuss this with her monorail hooker during her upcoming appointment. She has been [...] and plans to discuss this with her monorail hooker during her upcoming appointment. She has been [...] dosage of carvedilol was increased by her monorail hooker. Symptoms include shortness of breath, irregular heart rhythm, and night terrors. Her blood pressure is currently stable. She is advised to discuss these symptoms with her monorail hooker during her upcoming appointment next month. 2. [...] for this patient. documented in this encounter [facility] 09-20-2024 Telephone encounter Note Pt needs a refill on Ativan [facility] 09-20-2024 Miscellaneous Notes Pt needs a refill on Ativan [facility] documented in this encounter [facility] 08-12-2024 History of Present illness [...] Negative - 160(16) ++++ mg/dL Negative Specific [place], UA 1 - 1.03 1.005 Blood, UA [...] persistent (HCC) (CMS/HCC) Continue current medication regimen. skilled nursing 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 Continue current medication [...] substitutions have occurred. documented in this encounter [facility] 08-05-2024 History of Present illness Narrative Images from the original note were not included. Rodolfo Boo, Obstetrics and Gynecology Asya Asencio 1950 08/05/24 [id number] Yearly Wellness Exam Chief Complaint Patient presents with Gynecologic Exam Medicare off year. LMP: MIR BS 1983 HRT: None Last pap 07-24-23 neg. Last mammogram 12-05-22 [facility]. Not sure when she can do it [...] Date AV NODE ABLATION 06/10/2024 BOWEL RESECTION 1995 CYST REMOVAL Left breast OTHER SURGICAL HISTORY 2020 urethra scope OTHER SURGICAL HISTORY 02/28/2024 implantation of biventricular ICD submuscular implant IN TOTAL ABDOM HYSTERECTOMY 1983 MIR BS REFRACTIVE SURGERY Past Medical History: Diagnosis Date Anxiety disorder Atrial fibrillation (CMS/HCC) Chronic rhinitis Chronic sinusitis Constipation due to outlet dysfunction Constipation, unspecified constipation type Dysuria GERD (gastroesophageal reflux disease) Grief reaction with prolonged bereavement (CMS/HCC) Heart murmur HTN (hypertension) (CMS/HCC) Hypothyroidism (CMS/HCC) IBS (irritable bowel syndrome) Palpitation Post-menopausal atrophic [...] angle tenderness, no obvious scoliosis/kyphosis. FEMALE GENITOURINARY: buggyman in room - atrophic hormone - cuff [...] 08/05/24 Time 5:00PM. documented in this encounter [facility] 07-02-2024 Note Cardiovascular Medic [facility] SUBJECTIVE Chief Complaint Patient presents [...] insomnia Urethral stricture Urinary frequency Urinary urgency skilled nursing 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 Paroxysmal atrial fibrillation ([facility]/HCC) Presence of biventricular automatic cardioverter/defibrillator (AICD) Past Medical History: Diagnosis Date Abnormal ECG Arrhythmia Atrial fibrillation ([facility]/HCC) CHF (congestive heart failure) ([facility]/HCC) Heart murmur Heart valve disease Hypertension Nonischemic cardiomyopathy ([facility]/HCC) Family History Problem Relation Name Age of [...] and regular rhythm. (more content not included)... [facility] 07-02-2024 Note Patient here for fol low [...] All other systems reviewed and are negative. [facility] 07-01-2024 History of Present illness Narrative Images [...] eat. She has an appointment with a proof technician tomorrow. She has been taking spironolactone, [...] research. She will follow up with the proof technician and nurse practitioner tomorrow to check [...] for this patient. documented in this encounter [facility] 06-27-2024 Note [facility] 06-27-2024 History of Present illness Narrative Asya Asencio is a 74 year old [...] She is here today for cystoscopy CYSTOSCOPY Pedro'S 30 DAY PHYSICAL EXAM Primary Indication: Bladder [...] for Female Urology and Reconstructive Pelvic Surgery/Urology [facility] [place] documented in this encounter [facility] 06-27-2024 Nurse Note PROCEDURE NURSE ASSESSMENT Patient [...] patient verbalizes understanding: yes Clarice Gardiner MA [facility] 06-27-2024 Instructions Clarice Gardiner MA - 06/27/2024 10:59 AM EST [facility] DR. RAPHAEL GOLDSMITH AFTER YOUR [...] office: Dr. Raphael Goldsmith M.D., Office PH#: [phone] After 5 pm and on weekends: Call [phone] and ask for the urologist engineer operations and maintenance. The doctor will need to know that you have had a cystoscopy and what symptoms you are having. documented in this encounter [facility] 06-27-2024 Nurse Note PROCEDURE NURSE ASSESSMENT Patient [...] with drinking extra fluids. Please call the [place] office at [phone], Monday-Monday, 8 am - 5 pm, with any questions you may have. Please ask to be transferred to the Urology nurses in the back office area. If you call after 5 PM or on the weekends, please call [phone], ask for the Urologist engineer operations and maintenance. Thank You, Your Urology Team documented in this encounter [facility] 06-27-2024 Nurse Note POST INSTRUCTIONS Cystoscopy Procedure [...] with drinking extra fluids. Please call the [place] office at [phone], Monday-Monday, 8 am - 5 pm, with any questions you may have. Please ask to be transferred to the Urology nurses in the back office area. If you call after 5 PM or on the weekends, please call [phone], ask for the Urologist engineer operations and maintenance. Thank You, Your Urology Team [facility] 06-10-2024 Note AV NODE ABLATION PRO CEDURE [...] MR and subsequently had a visit with [facility] where evaluation was being done for surgical [...] poor candidate for Afib ablation, she underwent CERTIFIED REGISTERED LOCKSMITH-P on 02/28/24. She is here for AVN [...] Continue anticoagulation. Marco Yao MD Cardiac Electrophysiology. [facility] 06-10-2024 Note Patient: Asya Asencio Procedure Information Date/Time: 06/10/24 1200 Procedure: AV node ablation - PC APPROVED Location: [facility] MECHANICAL TEST TECHNICIAN 1 EP / [facility] (Cath) Providers: Marco Yao MD Clinical information reviewed: Allergies Meds OB Status Physical Exam Airway Mallampati: II TM distance: >3 FB Cardiovascular Dental Pulmonary Abdominal Anesthesia Plan ASA 3 CSE Anesthetic plan and risks discussed with patient. Use of blood products discussed with patient who. Additional Equipment Requests [facility] 05-28-2024 Note case [facility] 05-27-2024 Note [place] Cardiology - [facility] Subjective Asya Asencio is a 74 [...] insomnia Urethral stricture Urinary frequency Urinary urgency skilled nursing 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 Paroxysmal atrial fibrillation [...] At her recent visit with cardiology at [facility] on 09/26/2023 valsartan was stopped and low-dose lisinopril 5 mg once daily was added. The plan was to add Jardiance. There is note of her to being evaluated by CT surgery Dr. Sorto regarding candidacy for cardiac surgery and she was deemed high risk. She was also evaluated at [facility] cardiothoracic surgery. Initial workup for her mitral [...] irregularly irregular. Pulse (more content not included)... [facility] 05-07-2024 Note [facility] 05-07-2024 History of Present illness Narrative [facility] FOR FEMALE [...] repeat urethral dilation in 2-3 months at [place] in office -Plan to assess for atrophic vaginitis at time of urethral dilation due to patient concern for irritation around upper thigh/vagina Erika Ho MD I have personally performed a face to face diagnostic evaluation on this patient. My findings are as above. Raphael Goldsmith MD plan urethral dil per req documented in this encounter [facility] 05-07-2024 Nurse Note Post Void Residual done on patient with 0 cc residual volume remaining. MD notified. CARISSA Garvey [facility] 05-07-2024 Nurse Note Post Void Residual done on patient with 0 cc residual volume remaining. notified. CARISSA Garvey documented in this encounter [facility] 03-06-2024 Note Heart failure is unc hanged. NYHA Class II. Continue current treatment regimen. Dietary sodium restriction. Encouraged daily monitoring of the patient's weight. Continue current medications. Heart failure will be reassessed in 3 months. [facility] 03-06-2024 Note Wound check today he aling well without s/s of infection 1 month wound check and device interrogation and then q 6 month interrogation [facility] 03-06-2024 Note Patient here for wou nd check s/p PPM placement on 02/28/[address] Yao. [facility] 03-06-2024 Note UTP CARDIOLOGY PROGR ESS NOTE [...] dilitation RV normal size and function 02/28/24 CERTIFIED REGISTERED LOCKSMITH-P IMPLANT PROCEDURE NOTE DATE OF PROCEDURE: 02/28/2024 PERFORMING PHYSICIAN: Dr. Marco Yao FAMILY PRACTICE DOCTOR: NA CONSENT: Patient LOCATION: [employer] PROCEDURE PERFORMED: 1. Implantation of Biventricular ICD ([employer]): submuscular implant. 2. U/S venous access 3. Coronary sinus venogram 4. Conscious sedation 5. Fluroscopy INDICATIONS: Ischemic cardiomyopathy LBBB Persistent AF with mod-severe MR POST PROCEDURE EXAM: Patient was hemodynamically stable. COMPLICATIONS: None. IMPRESSION: 1. Successful Biventricular ICD implantation with excellent pacing and sensing parameters. (Submuscular pocket) RECOMMENDATIONS: 1. Occlusive (more content not included)... [facility] 02-28-2024 Note CERTIFIED REGISTERED LOCKSMITH-P IMPLANT PROCED URE NOTE DATE OF PROCEDURE: 02/28/2024 PERFORMING PHYSICIAN: Dr. Marco Yao FAMILY PRACTICE DOCTOR: NA CONSENT: Patient LOCATION: [employer] PROCEDURE PERFORMED: 1. Implantation of Biventricular CERTIFIED REGISTERED LOCKSMITH-P ([employer]): submuscular implant. 2. U/S venous access [...] MR and subsequently had a visit with [facility] where evaluation was being done for surgical [...] A-fib ablation and opted to proceed with CERTIFIED REGISTERED LOCKSMITH-P and AVN ablation. PROCEDURAL DETAILS: Patient was [...] occasions using seldinger technique using a 5 Italian micropunture needle and exchanged for 0.034 wire. I decided to proceed with opening of the pocket. Localinfiltration of 1% Lidocaine was performed and an incision was created in the left upper chest. Dissection was then performed using cautery down. An active fixation [employer] RV pacing lead was then delivered [...] but the entry point was very tortuous. Stacy-Lois catheter was then taken out, and then a support J-wire was placed and following which a [employer] straight shaped lead was advanced over [...] The leads were then attached to a [employer] CERTIFIED REGISTERED LOCKSMITH-P device and the leads tug tested. I [...] was returned t (more content not included)... [facility] 02-28-2024 Note Patient: Asya Asencio Procedure Information Date/Time: 02/28/24 1230 Procedure: Implant PPM - approved Location: [facility] MECHANICAL TEST TECHNICIAN 1 / [facility] (Cath) Providers: Marco Yao MD Clinical information reviewed: Tobacco Allergies Meds Med Hx Surg Hx Fam Hx Physical Exam Airway Mallampati: II TM distance: >3 FB Neck ROM: full Cardiovascular Dental Pulmonary Abdominal Anesthesia Plan ASA 2 CSE Anesthetic plan and risks discussed with patient. Use of blood products discussed with patient who. Additional Equipment Requests [facility] 12-22-2023 Telephone encounter Note The following approved medication requests have been transmitted electronically. Requested Prescriptions Signed Prescriptions Disp Refills lisinopril (ZESTRIL) 10 mg tablet 45 tablet 0 Sig: take 1/2 tablet by mouth once daily Authorizing Provider: Benitez SAMUELS pantoprazole DR (PROTONIX) 40 mg tablet 90 tablet 0 Sig: take 1 tablet by mouth every day Authorizing Provider: Benitez SAMUELS APRN.PASSENGER TRAIN BRAKER [facility] 12-22-2023 Miscellaneous Notes The following approved medication requests have been transmitted electronically. Requested Prescriptions Signed Prescriptions Disp Refills lisinopril (ZESTRIL) 10 mg tablet 45 tablet 0 Sig: take 1/2 tablet by mouth once daily Authorizing Provider: Benitez SAMUELS pantoprwm DR (PROTONIX) 40 mg tablet 90 tablet 0 Sig: take 1 tablet by mouth every day Authorizing Provider: Benitez SAMUELS APRN.PASSENGER TRAIN BRAKER documented in this encounter [facility] 11-22-2023 Hospital Discharge instructions Patient Education 11/22/2023 20:40:30 Constipation, Adult, Cozd-sp-Lupg Constipation, Adult Constipation is when a person [...] poop. Do not hold it in. Take tytg-wje-hkchlfg and prescription medicines only as told by [...] keep your pee (urine) pale yellow. Take rykx-evo-oawwhar and prescription medicines only as told by your doctor. These include any fiber supplements. This information is not intended to replace advice given to you by your health care provider. Make sure you discuss any questions you have with your health care provider. Document Revised: 06/17/2020 Document Reviewed: 06/17/2020 [employer] Patient Education 2022 6Wunderkinder. Follow Up Care 11/22/2023 16:18:30 With:Snehal MCMAHON, Hannah De Leon Address: [place] [place] [address]- When:11/25/2023 [facility] 10-16-2023 Miscellaneous Notes October 16, 2023 Patient Contact Number: [phone] Patient last seen within the last year: [...] Yes Gloria Mendes documented in this encounter [facility] 10-16-2023 Note [facility] 10-16-2023 History of Present illness Narrative UNIVERSAL [...] due to it helping the symptoms [facility] NOTE / UNIVERSAL PROTOCOL / SAFETY [...] in 6 months to reassess symptoms Juventino Jvaier MD FPMRS Fellow Attending Note I evaluated the patient and personally participated in the mansfield components. I agree with the resident's findings and plan as documented and have discussed the case and management of the patient's care with the resident. @POCVISITLIST@ Signature: Raphael Goldsmith MD Date: October 16, 2023 Time: 11:18 AM documented in this encounter [facility] 10-16-2023 Note [facility] 10-16-2023 Nurse Note Actual procedure/procedure scheduled: Yes Performing provider/scheduled provider: Yes Patient was roomed in: Q9- 07 Doctor Of Audiology offered:Patient declines Patient arrived in the room [...] Education Session: None Instruction Provided To: Patient Mold Release Worker Present: no Discipline: Nursing Learning Topic: SURVIVAL SKILLS: Symptom Management Patient Evaluation: Verbalizes understanding: Yes Supplemental Material Given: Written Material Instructed By DAWSON Farr In Department Urology . documented in this encounter [facility] 10-05-2023 Hospital Discharge instructions Patient Education 10/05/2023 21:56:35 Constipation, Adult, Iapk-iz-Xokf Constipation, Adult Constipation is when a person [...] poop. Do not hold it in. Take yxkd-gns-kkjsxsa and prescription medicines only as told by [...] keep your pee (urine) pale yellow. Take rhvu-ktd-jiulsri and prescription medicines only as told by your doctor. These include any fiber supplements. This information is not intended to replace advice given to you by your health care provider. Make sure you discuss any questions you have with your health care provider. Document Revised: 06/17/2020 Document Reviewed: 06/17/2020 [employer] Patient Education 2022 6Wunderkinder. 10/05/2023 21:56:35 Gastroesophageal Reflux Disease, Adult, Jhcs-bl-Pnif Gastroesophageal Reflux Disease, Adult Gastroesophageal reflux (ZUNILDA) [...] powder, vinegar, hot sauces, and BBQ sauce. ?[place] fruit juices and citrus fruits, such as oranges, ronald, and limes. ?Tomato-based foods. These include red sauce, chili, salsa, and pizza with red sauce. ?Fried and fatty foods. These include donuts, nepalese fries, potato chips, and high-fat dressings. ?High-fat [...] to any changes in your symptoms. Take siaa-chh-qaicrui and prescription medicines only as told by [...] provider. Document Revised: 02/08/2021 Document Reviewed: 02/08/2021 [employer] Patient Education 2022 6Wunderkinder. 10/05/2023 21:56:35 Abdominal Pain, Adult, Fnsp-jn-Lkfz Abdominal Pain, Adult Many things can cause belly (abdominal) pain. Most times, belly pain is not dangerous. Many cases of belly pain can be watched and treated at home. Sometimes, though, belly pain is serious. Your doctor will try to find the cause of your belly pain. Follow these instructions at home: Medicines Take kbfk-zht-ebrnlxj and prescription medicines only as told by [...] your belly pain for any changes. Take ranz-nie-lhunqgj and prescription medicines only as told by [...] provider. Document Revised: 12/09/2019 Document Reviewed: 12/09/2019 [employer] Patient Education 2022 6Wunderkinder. Follow Up Care 10/05/2023 17:56:41 With:Johan HENRIQUEZ Address: [address] [place] [address]- [phone] Business (1) When:10/08/2023 20:57:11 With:Peggy Nazario Address: [address] [place] [address] Business (1) When:Within 3 Day(s) [facility] 10-05-2023 Evaluation + Plan note Extrac [...] day(s), # 28 tab(s), Refills(s) 0, Pharmacy: [facility], 165, cm, 10/05/23 18:07:00 EST, Height/Length Dosing, 50.3, kg, 10/05/23 18:07:00 EST, Weight Dosing lidocaine topical, 200 mg, 10 mL, Soln-Oral, Oral, Once, Stop date 10/05/23 20:48:00 EST, STAT, Start date 10/05/23 20:48:00 EST ECG 12 Lead Adult Future Appointments Appointment Date:01/24/2024 02:30:00 PM Scheduled Provider:Micheline BROOKS MD Location:[facility] Appointment Type:URO Office Visit Future Scheduled Tests Laboratory* Basic Metabolic Panel 07/12/23 * Digoxin Level 07/12/23 [facility]02-19-2024 Miscellaneous Notes* Telephone Encounter - Gloria Mendes - 10/02/2023 9:35 AM EST October 02, 2023 Patient Contact Number: [phone] Patient last seen within the last year: Yes Date of last office visit: 09/26/2023 Reason For Call: Test Results; pt requesting to go over 09/26 labs Physician: Alea Harley MD Patient was informed that non-urgent calls may be returned within the next three business days. Yes Gloria Mendes [facility] Nurse Note* Chrissy Roberts OCCA - 09/26/2023 2:28 PM EST Post Void Residual done on patient with 45 cc residual volume remaining. notified. CARISSA Ferrell documented in [facility] encounter[facility] History of Present illness Narrative* Raphael Goldsmith MD - 09/26/2023 2:15 PM EST [facility] FOR FEMALE [...] Medicine and Reconstructive Surgery documented in this encounterMer[facility]-2024 Instructions* Patient Instructions* Ana Rivas APRN.CNP [...] with labs and EKG documented in this encounterMer[facility]-2024 [facility] History of Present illness Narrative* Ana Rivas APRN.CNP - 09/26/2023 8:51 AM EST Images from the original note were not included. [facility] Department of Cardiovascular Medicine SECTION OF CLINICAL CARDIOLOGY OUTPATIENT VISIT DATE September 26, 2023 OUTPATIENT VISIT TYPE ESTABLISHED PRIMARY CARE PHYSICIAN: Peggy Nazario MD [address] [place] [address] REFERRING PHYSICIAN: Dr. Alea Harley [address] [facility] [id number] CHIEF COMPLAINT: Established Patient HISTORY OF PRESENT [...] ECG Confirmed by fellow NANCY MCMAHON, ZIGGY ([id number]) on 09/04/2023 1:50:09 PM Confirmed by MD DEJUAN, PhD, KHUSHI ([id number]) on 09/11/2023 1:23:[address] Result Conclusion CTA CHEST (GATED) W IVCON Exam End: 08/23/2023 7:47 AM (Final result) Impression: IMPRESSION: Dilated left ventricle, biatrial enlargement. Mitral valve is noncalcified. Normal caliber thoracic aorta. Petroleum Engineer: PSCB Transcribe Date/Time: Aug 23 2023 11:20A [...] a plan of care. documented in this encounterMer[facility]-2024 Miscellaneous Notes* Telephone Encounter - Carmina Reyna RN - 09/21/2023 4:[address] Harley would like patient to come in and be seen to go over this in greater detail. Work on setting her up with an PROSTHETIC ASSISTANT and Dr. Harley would like to be in for the appointment. Next Monday. Carmina Reyna RN * Telephone Encounter - Gloria Mendes - 09/21/2023 3:33 PM EST September 21, 2023 Patient Contact Number: [phone] Patient last seen within the last year: [...] days. Yes Gloria Mendes documented in this encounterMer[facility]02[facility]24 History of Present illness Narrative* Farrukh [...] Flowsheet Row Patient Outreach from 09/18/2023 in [facility] with Loida Nathan LPN Discharge Information ED [...] for ER follow up. Pt seen at [facility] ER on 09/17/23 due to dizziness and shaking. Hospitalrecords were reviewed. Pt had an elevated BP. She believes the dizziness and shaking was caused by the valsartan. She had the same issues when she was on it before, was advised to cut it in half. Shestates she has been feeling better since she stopped it. Pt would like a referral to a new monorail hooker/surgeon. She states she has been told that [...] be referred to a cardiothoracic surgeon at [facility]. Discussed some risks of surgery. - Ambulatory referral to Cardiothoracic Surgery; Future Entered by _El_, acting as scribe for Dr. Lr_. Signature _Heath MCMAHON_ Date _09/18/2023_. The documentation recorded by the scribe accurately reflects the service(s) I personally performed and the decisions I made. documented in this encounterParkland Health [id number] Evaluation + Plan note Extracted from: Title:ED [...] Date:01/24/2024 02:30:00 PM Scheduled Provider:Micheline BROOKS MD Location:[facility] Appointment Type:URO Office Visit Future Scheduled Tests Laboratory* Basic Metabolic Panel 07/12/23 * Digoxin Level 07/12/23 [facility]02-04-2024 Hospital Discharge instructions Patient Education 09/17/2023 [...] medicines that you are allergic to. Take lpzw-etp-jyhdbki and prescription medicines only as told by your health care provider. If you were given medicines to treat your allergic reaction, do not drive until your health care provider tells you it is safe. If you have hives or a rash: ?Use an ekbq-wge-anbudcc antihistamine as told by your health care [...] provider. Document Revised: 01/10/2022 Document Reviewed: 01/10/2022 [employer] Patient Education 2022 6Wunderkinder. 09/17/2023 06:16:25 Heartburn Heartburn Heartburn is a [...] powder, vinegar, hot sauces, and barbecue sauce. ?[place] fruit juices and citrus fruits, such as oranges, ronald, and limes. ?Tomato-based foods, such as red sauce, chili, salsa, and pizza with red sauce. ?Fried and fatty foods, such as donuts, nepalese fries, potato chips, and high-fat dressings. ?High-fat [...] ask your health care provider. Medicines Take nglk-jvq-zbqkiqd and prescription medicines only as told by [...] told by your health care provider. Take tnds-jcj-dkitgbg and prescription medicines only as told by [...] provider. Document Revised: 02/03/2021 Document Reviewed: 02/03/2021 [employer] Patient Education 2022 6Wunderkinder. Follow Up Care 09/17/2023 04:56:21 With:Peggy Nazario Address: [address] [place] [id number] (1) When:Within 3 Day(s) [facility]02-04-2024 Miscellaneous Notes* Telephone Encounter - Carmina Mcmahan APRN.TALIB - 09/17/2023 6:25 AM EST Patient reported that she went to the ED, said her blood pressure was up instead of down this time . I didn't sleep, I can't take that medicine, there's something that don't agree with me. She reiterates that she can't take that medication (valsartan) again. Carmina Mcmahan APRN.TALIB [facility] SOULEYMAN[facility] Cuff Setter 09/17/2023 6:29 AM documented in this encounterMercy [facility]02-[facility]-2024 Miscellaneous Notes* Telephone Encounter - Carmina Mcmahan APRN.CNP - 09/17/2023 4:21 AM EST [facility] Center Inbound Phone Encounter DATE of SERVICE: 09/17/2023 TIME of SERVICE: 4:21 AM Status: Urgent Service/Provider: Clinical Cardiology Alea Harley MD Reason for call: Medication Issue/Question Contact information: [phone] Resolution: Reinforced education and Sent to [employer] Comments: Patient calling after waking up with [...] to try. Carmina Mcmahan APRN.CNP [facility] SOULEYMANE Cuff Setter Date of Resolution: 09/17/2023 Time of Resolution 4:21 AM documented in this encounterMercy [facility]02-[facility]-2024 Telephone encounter Note * Telephone Encounter - Rupal Lemus - 09/15/2023 1:24 PM EST Pt calls to check status of this, wants this done as quickly as possible, states that she will haveto cut pills in half to make it through the weekend and missed one last night. [facility] [id number] Miscellaneous Notes* Telephone Encounter - Rupal Lemus [...] completely on monday documented in this encounterNOMS [id number] Telephone encounter Note* Telephone Encounter - Candis Amaro - 09/15/2023 9:49 AM EST Pt calls to ask if [facility] will be out on Monday [facility] [id number] Telephone encounter Note* Telephone Encounter - Candis Amaro - 09/13/2023 11:25 AM EST [id number] Telephone encounter Note* Telephone Encounter - Farrukh Mcmahan MA - 09/13/2023 11:06 AM EST [facility] [id number] Telephone encounter Note* Telephone Encounter - Candis Amaro - 09/13/2023 11:01 AM EST Pt calls for refill of lorazepam is almost out will be out completely on monday [facility] [id number] Evaluation + Plan noteExtracted from: Title:ED Note [...] Date:01/24/2024 02:30:00 PM Scheduled Provider:Micheline BROOKS MD Location:[facility] Appointment Type:URO Office Visit Future Scheduled Tests Laboratory* Basic Metabolic Panel 07/12/23 * Digoxin Level 07/12/23 [facility]01-30-2024 Hospital Discharge instructions Patient Education 09/12/2023 [...] as meditation or yoga. General instructions Take ysda-isx-uvqfanw and prescription medicines only as told by [...] provider. Document Revised: 05/20/2022 Document Reviewed: 05/20/2022 [employer] Patient Education 2022 6Wunderkinder. 09/12/2023 06:47:40 Gastroesophageal Reflux Disease, Adult Gastroesophageal [...] powder, vinegar, hot sauces, and barbecue sauce. ?[place] fruit juices and citrus fruits, such as oranges, ronald, and limes. ?Tomato-based foods, such as red sauce, chili, salsa, and pizza with red sauce. ?Fried and fatty foods, such as donuts, nepalese fries, potato chips, and high-fat dressings. ?High-fat [...] to any changes in your symptoms. Take ojgo-bms-wfozpza and prescription medicines only as told by [...] you have new or worsening symptoms. Take tmtn-fcz-foomijp and prescription medicines only as told by [...] provider. Document Revised: 02/08/2021 Document Reviewed: 02/08/2021 [employer] Patient Education 2022 6Wunderkinder. Follow Up Care 09/12/2023 04:04:55 With:Peggy Nazario Address: [address] [place] [phone] Business (1) When:Within 3 Day(s) [facility]01[facility]18[facility]-30-2023 [facility]2024 [facility]-20[facility]2024 Note [facility] [facility]2024 [facility] 08-27-2023 [facility]2024 [facility]24 [facility]24 History of Past illness Narrative* Problem Noted Date Diagnosed Date Resolved Date Acute on chronic systolic co ngestive heart failure 08/26/2023 08/27/2023 documented as of this encounter (statuses as of 09/17/2023) [facility]01-13-2024 History of Past illness Narrative* Problem Noted Date Diagnosed Date Resolved Date Acute on chronic systolic co ngestive heart failure 08/26/2023 08/27/2023 documented as of this encounter (statuses as of 09/21/2023) [address]13-2024 History of Past illness Narrative* Problem Noted Date Diagnosed Date Resolved Date Acute on chronic systolic co ngestive heart failure 08/26/2023 08/27/2023 documented as of this encounter (statuses as of 09/26/2023) [facility]01-13-2024 History of Past illness Narrative* Problem Noted Date Diagnosed Date Resolved Date Acute on chronic systolic co ngestive heart failure 08/26/2023 08/27/2023 documented as of this encounter (statuses as of 09/26/2023) [facility]01-13-2024 History of Past illness Narrative* Problem Noted Date Diagnosed Date Resolved Date Acute on chronic systolic co ngestive heart failure 08/26/2023 08/27/2023 documented as of this encounter (statuses as of 09/29/2023) [address]13-2024 History of Past illness Narrative* Problem Noted Date Diagnosed Date Resolved Date Acute on chronic systolic co ngestive heart failure 08/26/2023 08/27/2023 documented as of this encounter (statuses as of 10/02/2023) [facility]01-13-2024 History of Past illness Narrative* Problem Noted Date Diagnosed Date Resolved Date Acute on chronic systolic co ngestive heart failure 08/26/2023 08/27/2023 documented as of this encounter (statuses as of 10/16/2023) [address]13-2024 History of Past illness Narrative* Problem Noted Date Diagnosed Date Resolved Date Acute on chronic systolic co ngestive heart failure 08/26/2023 08/27/2023 documented as of this encounter (statuses as of 10/17/2023) [address]13-2024 History of Past illness Narrative* Problem Noted Date Diagnosed Date Resolved Date Acute on chronic systolic co ngestive heart failure 08/26/2023 08/27/2023 documented as of this encounter (statuses as of 10/20/2023) [address]13-2024 NoteHNO ID: [id number] Author: NOTE, INTERFACE, ? Service: ? Author Type: ? Type: Progress Notes Filed: 08/26/2023 02:15 Note Text: Epic Scheduled Downtime: 08/26/2023 1:00:00 AM to 08/26/2023 2:04:22 [facility]01-11-2024 [facility]2024 Note [facility]24 [facility]01-10-2024 [facility]12-29-2023 NoteProcedure The risk/benefits of the procedure were [...] Education Routine Capillary Glucose POC Saline Lock InsertAlleghany Healther Saint Luke InstituteComment on above:Result Comment: Electronically Signed By: MARTINEZ MCMAHON, Johan Ribeiro.zak\Date and Time Signed: 07/05/23 06:48 [id number] History of Present illness Narrative* Farrukh Mcmahan, JOSUE - 08/11/2023 8:45 AM EST Asya Asencio is a 73 y.o. female presents today to follow up on anxiety. HPI: Pt here today for follow up on anxiety. Pt states yesterday she had a panic attack. She received a bill from [facility] that made her very upset and she had a panic attack. She felt like she couldn't catchher breath the rest of the day. Pt is currently on holter monitor. Pt has instructions from [facility] that she is confused about and would [...] Chronic fatigue syndrome Discussed. documented in this encounterParkland Health [id number] Miscellaneous Notes* Telephone Encounter - Rebecca Fernandez - 07/24/2023 10:22 AM EST IN * Telephone Encounter - Katie Nicholson - 07/24/2023 10:08 AM EST Please register insurance Thank you! documented in [facility]2023 Note [id number] [facility] 07-21-2023 Evaluation + Plan noteExtracted from: Title:Procedure Note Heart & Vascular Author:Johan GERMAN MD Date:07/21/23 Ordered: benzocaine/butamben/tetracaine topical, 3 spray(s), [place]-Top, Topical, q2min PRN Other (see comment), Routine, [...] Oxygen Therapy Saline Lock Insert Suctioning HAROON ([facility]) Vital Signs Future Appointments Appointment Date:01/24/2024 02:30:00 PM Scheduled Provider:Micheline BROOKS MD Location:[facility] Appointment Type:URO Office Visit Future Scheduled Tests Laboratory* Basic Metabolic Panel 07/12/23 * Digoxin Level 07/12/23 [place] [facility]12-08-2023 Hospital Discharge instructions Patient Education 07/21/2023 08:44:29 CV - Post-Transesophageal Echocardiogram (Custom) [place] POST-TRANSESOPHAGEAL ECHOCARDIOGRAM AFTER THE PROCEDURE: Diet: [...] appointment Seek Medical Care if: Notify your monorail hooker should you have any difficulty swallowing or coughing up blood. In the event you are unable to reach your monorail hooker, please call [facility] at [phone] and the linotype operator will assist you. Follow Up Care 07/20/2023 11:03:45 With:Johan HENRIQUEZ Address: [address] [place] [address] [place] [address] [phone] Business (1) When: Unknown Comments:-After your appointment with [facility] [place] [facility]12-08-2023 NoteProcedure The risk/benefits of the procedure [...] plan_ Assessment/Plan Ordered: benzocaine/butamben/tetracaine topical, 3 spray(s), [place]-Top, Topical, q2min PRN Other (see comment), Routine, [...] Oxygen Therapy Saline Lock Insert Suctioning HAROON ([facility]) Vital SignsFayette County Memorial HospitalComment on above:Result Comment: Electronically Signed By: MARTINEZ MCMHAON, Johan Ribeiro.br\Date and Time Signed: 07/21/23 07:09 [id number] Evaluation + Plan note Future Appointments Appointment Date:07/21/2023 08:00:00 AM Scheduled [facility]: [facility]:CV CU () Appointment Date:07/21/2023 08:00:00 AM Scheduled Provider: [facility] Type:[facility] Echo () Appointment Date:01/24/2024 02:30:00 PM Scheduled Provider:Micheline BROOKS MD Location:[facility] Appointment Type:URO Office Visit Future Scheduled Tests Laboratory* Basic Metabolic Panel 07/12/23 * Digoxin Level 07/12/23 Radiology* Echo Transesophageal 2D 07/21/23 [facility]11-29-2023 Evaluation + Plan note Future Scheduled Tests Laboratory* Basic Metabolic Panel 07/12/23 * Digoxin Level 07/12/23 [facility] [id number] Hospital Discharge instructions Patient Education 07/07/2023 13:04:14 [...] health careprovider. Avoid caffeine, alcohol, and certain cvqb-pxj-tsoofqv cold medicines. These may make you feel worse. Ask your pharmacist which medicines to avoid. General instructions Take wapy-qvp-sudybzh and prescription medicines only as told by [...] Depression Association of [place] (ADAA): www.adaa.org National [place] on Mental Illness (YANI): www.yani.org Contact a [...] department or: Call your local emergency services (000 in the [place] Call a suicide crisis helpline, such as the National Suicide Prevention Lifeline at or 287 in the [place] This is open 24 hours a day in the [place] Text the Crisis Text Line at 433931 (in the [place] Summary Taking steps to [...] provider. Document Revised: 02/23/2022 Document Reviewed: 11/21/2021 [employer] Patient Education 2022 [employer] 07/07/2023 13:04:14 Atrial Fibrillation Atrial Fibrillation [...] electrical signals of the heart. An ambulatory nurseryman assistant to record your heart's activity for a [...] provider. Document Revised: 01/22/2020 Document Reviewed: 01/22/2020 [employer] Patient Education 2022 [employer]. Follow Up Care 07/07/2023 08:56:48 With:Johan HENRIQUEZ Address: [address] [place] [address]- [phone] Business (1) When:07/10/2023 12:45:48 With:Peggy Nazario Address: [address] [place] [address]- Business (1) When:07/10/2023 12:45:46 [place] [facility]11-24-2023 NoteAdmission and Discharge Information Admitting Physician - Noman PATTON DO Consulting Physician - Shell MCMAHON, Eb Yeh [facility] Cardio, XXXX Admitting Diagnoses: Discharge Diagnoses 1. [...] of breath. She was subsequently admitted to [facility] with acute paroxysmal atrial fibrillation with rapid ventricular response?new onset, acute systolic congestive heart failure, elevated troponin, severe mitral regurgitation and tricuspid regurgitation, mild coronary artery disease. She was seen in consultation by the monorail hooker and underwent cardiac catheterization and echo cardiogram. [...] is for patient to follow-up with a monorail hooker as well as the urologist as outpatient. She may need valvular repair or replacement after follow-up with the monorail hooker and may also require HAROON as per the monorail hooker. Discharge time: 35 minutes. I spent 35 [...] 76.7 % Lymph Auto - 15.3 % Wayne Auto - 7.7 % Eos Auto - 0.0 % Basophil Auto - 0.3 % Neutro Absolute - 4.7 E9/L Lymph Absolute - 0.9 E9/L Wayne Absolute - 0.5 E9/L Eos Absolute - [...] - 79 mg/dL POC Device SN - [id number] POC User ID - [id number] POC Username - NIKHIL PAULSON CBC w/ [...] HDL - 43 mg/dL (more content not included)...[facility] HospitalComment on above:Result Comment: Electronically Signed By: Nahid SERRATO MD\.br\Date and Time Signed: 07/07/23 12:07 [id number] Evaluation + Plan noteExtracted from: Title:APSO Note Author:Nahid SERRATO MD Date:09/05/22 73-year-old female with history of ureteral stricture with previous dilations, anxiety disorder presented with complaints of urinary hesitancy, constipation, cough and shortness of breath and was admitted to [facility] with acute paroxysmal atrial fibrillation with [...] IV Cardizem drip. Continue on Coreg, digoxin. Eyeletter debating on starting patient on amiodarone. Eliquis to start in 4 days after cardiac catheterization. Ordered: [facility] Hospital Care/Day Moderate 35 Minutes 18706 2. Acute systolic congestive heart failure (I50.21: Acute systolic (congestive) heart failure) Acute systolic congestive heart failure present on admission. Seen by monorail hooker and underwent cardiac catheterization that showed mild coronary artery disease. Also shows severe mitral regurgitation and tricuspid regurgitation with ejection fraction of 30 to 35%. Continue on aspirin, Coreg, losartan and Lasix. Ordered: [facility] Hospital Care/Day Moderate 35 Minutes 72801 3. Severe mitral regurgitation (I34.0: Nonrheumatic mitral (valve) insufficiency) As seen on cardiac catheterization. Patient will follow-up with monorail hooker for HAROON and then valvular repair. Eyeletter also considering transferring patient to or [facility]. Ordered: [facility] Hospital Care/Day Moderate 35 Minutes [id number] 4. Elevated troponin (R79.89: Other specified abnormal findings of blood chemistry) Secondary to type II non-ST segment elevation myocardial infarction from above and mild coronary artery disease.. Seen by monorail hooker and underwent cardiac catheterization that showed mild coronary artery disease. Continue on aspirin, Lipitor, and Coreg. Ordered: [facility] Hospital Care/Day Moderate 35 Minutes [id number] 5. Mild coronary artery disease (I25.10: Atherosclerotic heart disease of [place] coronary artery without angina pectoris) As seen on cardiac catheterization on 07/05/2023. Continue on Lipitor and aspirin. Ordered: [facility] Hospital Care/Day Moderate 35 Minutes [id number] 6. anxiety (F41.9: Anxiety disorder, unspecified) Increase [...] good control with plans to follow-up with monorail hooker and urologist as outpatient. However if heart rate is still elevated then we will call [facility] or [facility] to see if we can transfer patient for valve repair/replacement. I discussed the diagnosis and plan of care with the patient at the bedside. Moderate level of MDM based on addressing above issues. This documentation was transcribed using voice recognition software. Several attempts were made to ensure accuracy. However inadvertent computerized tank wagon operator errors may be present. Nahid Serrato. Hospitalist. [...] transfer the patient directly to the [facility] or [facility] given her logistic challenges with getting [...] artery disease (I25.10: Atherosclerotic heart disease of [place] coronary artery without angina pectoris) 6. Pleural effusion (J90: Pleural effusion, not elsewhere classified) 7. Urinary hesitancy (R39.11: Hesitancy of micturition) 8. Other urethral stricture, female (N35.82: Other urethral stricture, female) 9. Urinary retention (R33.9: Retention of urine, unspecified) 10. Constipation (K59.00: Constipation, unspecified) 11. 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 Acute systolic congestive heart failure (I50.21: Acute systolic (congestive) heart failure) Acute systolic congestive heart failure present on admission. Seen by monorail hooker. She is status post cardiac catheterization that showed mild coronary artery disease. Also showed severe mitral regurgitation and tricuspid regurgitation.. Ejection fraction of 30 to 35%. Continue on aspirin, Coreg, losartan, Lasix. Ordered: [facility] Hospital Care/Day Moderate 35 Minutes 27926 3. Severe mitral regurgitation (I34.0: Nonrheumatic mitral (valve) insufficiency) Severe mitral regurgitation seen on cardiac catheterization. Follow-up with monorail hooker as outpatient for HAROON and then valvular repair. Ordered: [facility] Hospital Care/Day Moderate 35 Minutes [id number] 4. Elevated troponin (R79.89: Other specified abnormal findings of blood chemistry) Secondary to type II non-ST segment elevation myocardial infarction from above and mild coronary artery disease.. Seen by monorail hooker and underwent cardiac catheterization that showed mild coronary artery disease. Continue on aspirin, Lipitor, and Coreg. Ordered: furosemide, 40 mg = 1 tab(s), Tab, Oral, Daily, Routine, Start date 07/06/23 9:00:00 EST, 07/05/23 11:13:00 EST [facility] Hospital Care/Day Moderate 35 Minutes 03545 5. Mild coronary artery disease (I25.10: Atherosclerotic heart disease of [place] coronary artery without angina pectoris) As seen on cardiac catheterization on 07/06/2023. Continue on Lipitor and aspirin. Ordered: [facility] Hospital Care/Day Moderate 35 Minutes 88885 6. 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 Disposition: Home in a.m. to follow-up with monorail hooker and urologist. I discussed the diagnosis and plan of care with the patient at the bedside. Moderate level of MDM based on addressing above issues. This documentation was transcribed using voice recognition software. Several attempts were made to ensure accuracy. However inadvertent computerized tank wagon operator errors may be present. Mbanefo Ojukwu. Hospitalist. Orders: Basic Metabolic Panel Basic Metabolic Panel Referral to [facility] Extracted from: Title:APSO Note Author:Nahid SERRATO MD Date:09/03/22 73-year-old female with history of ureteral stricture with previous dilations, anxiety disorder presented with complaints of urinary hesitancy, constipation, cough and shortness of breath and was admitted to [facility] with acute paroxysmal atrial fibrillation with [...] BID, # 60 tab(s), Refills(s) 0, Pharmacy: [id number], 165, cm, 07/02/23 21:30:00 EST, Height/Length Dosing, 55.7, kg, 07/02/23 21:30:00 EST, Weight Dosing Echo [facility]/Day Moderate 35 Minutes 28710 2. Acute systolic congestive heart failure (I50.21: Acute systolic (congestive) heart failure) Acute systolic congestive heart failure present on admission. Cardiology is following. Ejection fraction of 30 to 35%. Cardiology is planning on cardiac catheterization for ischemic work-up in AM. Meanwhile continue on aspirin, Coreg, losartan. We will verify with monorail hooker about Lasix. Ordered: [facility] Hospital Care/Day Moderate 35 Minutes 51056 3. Elevated troponin (R79.89: Other specified abnormal findings of blood chemistry) Secondary to type II non-ST segment elevation myocardial infarction from above. Echocardiogram shows ejection fraction of 30 to 35%. Eyeletter following with plans for cardiac catheterization in AM. Meanwhile continue on aspirin and Coreg. Ordered: Echo Transthoracic Complete [facility] Hospital Care/Day Moderate 35 Minutes 56680 4. Pleural effusion (J90: Pleural effusion, not elsewhere classified) Small pleural effusion secondary to acute systolic congestive heart failure. Supportive care. Lasix as needed. Ordered: [facility] Hospital Care/Day Moderate 35 Minutes 16837 5. Urinary hesitancy (R39.11: Hesitancy of micturition) Secondary to urethral stricture and urinary retention. She is status post Robles catheter placement. Urology consult reviewed by me. I appreciate and agreed recommendations. Patient will discharge with Robles catheter and leg bag to follow-up with urologist as outpatient. Ordered: [facility] Hospital Care/Day Moderate 35 Minutes [id number] 6. Other urethral stricture, female (N35.82: Other [...] Daily, NOW, Start date 07/03/23 11:16:00 EST [facility] Hospital Care/Day Moderate 35 Minutes 13087 9. On deep vein thrombosis (DVT) prophylaxis [...] made to ensure accuracy. However inadvertent computerized tank wagon operator errors may be present. Nahid Serrato. Hospitalist. 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 Constipation (HJD58-YA K59.00, Discharge, Medical). Other urethral stricture, female (AWV31-HD N35.82, Discharge, Medical). Urinary retention (PPP13-YU R33.9, Working, Medical). Course: Worsening, Overall this [...] I ordered echocardiogram. Ordered: Echo Transthoracic Complete [facility] Hospital Care/Day Moderate 35 Minutes 17854 2. Elevated troponin (R79.89: Other specified abnormal findings of blood chemistry) Secondary to type II non-ST segment elevation myocardial infarction from above. Echocardiogram ordered. Cardiology consult pending. Continue on aspirin. Ordered: Echo Transthoracic Complete [facility] Hospital Care/Day Moderate 35 Minutes 25762 3. Urinary hesitancy (R39.11: Hesitancy of micturition) Secondary to urethral stricture. Patient is status post Robles catheter placement for urinary retention. She will follow-up with urologist as outpatient. Ordered: [facility] Hospital Care/Day Moderate 35 Minutes 29346 4. Constipation (K59.00: Constipation, unspecified) Started patient on MiraLAX and lactulose. Ordered: lactulose, 20 gram = 30 mL, Syrup, Oral, Once, Stop date 07/03/23 12:00:00 EST, Routine, Start date 07/03/23 12:00:00 EST, 07/03/23 12:00:00 EST polyethylene glycol 3350, 17 gram = 1 EA, Powder-Recon, Oral, Daily, Routine, Start date 07/03/23 12:00:00 EST, 07/03/23 12:00:00 EST [facility] Hospital Care/Day Moderate 35 Minutes 34386 5. Other urethral stricture, female (N35.82: Other urethral stricture, female) Resulting in urinary retention. Patient is status post Robles catheter during this admission. Gets dilation of the ureter every 6 months. Urology consult pending. 6. 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 Disposition: Pending echocardiogram, cardiology and urology consult. I discussed the diagnosis and plan of care with the patient at the bedside. Moderate level of MDM based on addressing above issues. This documentation was transcribed using voice recognition software. Several attempts were made to ensure accuracy. However inadvertent computerized tank wagon operator errors may be present. Nahid Serrato. Hospitalist. 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 PCP, DME and insurance discussed. Patient is alert andinvolved in plan of care. Contact information provided and whiteboard updated. Pt is resting after heart cath. Eliquis priced to $183, copay 30 day card applied. Pt is agreeable to pablo and says ramirez discuss w Dr Henriquez if she needs it changed, Ant dc later today. Family will transport. Plan now to stay, per Dr KahnFayette County Memorial HospitalComment on above:Result Comment: Electronically Signed By: Margaret Grimm\.br\Date and Time Signed: 07/05/23 15:06 [id number] Evaluation + Plan noteExtracted from: Title:Procedure Note [...] Date:11/22/2023 01:00:00 PM Scheduled Provider:Micheline BROOKS MD Location:[facility] Appointment Type:URO Office Visit Future Scheduled Tests Laboratory* Basic Metabolic Panel 07/12/23 * Digoxin Level 07/12/23 [place] [facility]11-22-2023 Hospital Discharge instructions Patient Education 07/05/2023 09:04:47 CV - Cardiovascular Discharge Instructions (Custom) [place], [place] CARDIOVASCULAR DISCHARGE INSTRUCTIONS Diet: Resume pre-procedure [...] hours post procedure: Actoplus MetGlucophageGlucophage XR GlucovanceAvandametFortamet Ljq-kspnxknrsXplohyUjhj-qifwnarjt GlumetzaJanumetMetaglip RiometGlycomet *Minimal pain, soreness and/or discomfort [...] you are interested in smoking cessation, contact [facility] at [phone], ext. [phone]. In the event you are unable to reach your physician, please call [facility] at [phone] and the linotype operator will assist you. Seek Immediate Medical Care for: Bleeding: Apply continuous pressure to the site and Call 911. Should the arm or leg become cold, numb, blue or white call your physician immediately. Signs of infection are redness, warmth, swelling, increased tenderness, colored drainage, fever or chills Chest pain Follow Up Care 07/02/2023 21:18:33 With:Johan HENRIQUEZ Address: [address] [place] [phone]- [phone] Business (1) When:2 weeks Comments:Call for followup appointment With:Peggy Nazario Address: [address] [place] [address] Business (1) When:07/10/2023 13:00:00 With:Micheline BROOKS Address: [facility] [address] [place] [address] Business (1) When: Unknown Comments:Call for followup appointment re: the indwelling Robles catheter. [facility]11-21-2023 NoteCRM entered the room to discuss dc planning. PCP, DME and insurance discussed. Patient is alert andinvolved in plan of care. Contact information provided and whiteboard updated. Pt was seen by [facility], pt will be dc'd on Eliquis. CRM will pablo check and apply coupon if needed. Lucila Humphreys. ANt dc today. 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) drug therapy) Urinary retention (R33.9: Retention [...] tab(s), Oral, Daily Ativa (more content not included)...[facility] HospitalComment on above: Result Comment: Electronically Signed By: Shell MCMAHON, Eb Yeh\.br\Date and Time Signed: 07/03/23 21:35 [id number] NoteEchocardiology Procedure Exam Date/Time Accession # Ordering Echo Transthoracic 07/03/2023 13:36 EST -[id number] Nahid SERRATO MD Complete CPT code 22957 [id number] Reason for Exam (Echo Transthoracic Complete) Congestive Heart Failure Report Version: 1 Study ID: [id number] [address] Adult Echocardiogram Report Name: ASYA ASENCIO I Study Date: 07/03/2023, 1: 00 PM Patient Location: [address] [place] [address] : 1950 (MM/DD/YYYY) Gender: Female Age: 73 [...] REPORT Dictated: 07/03/2023 1:00 pm Eb Goff MD Signed (Electronic Signature): 07/03/2023 8:11 pm Signed by: Eb Goff MD Transcribed by: [facility] Technologist: [facility]11-20-2023 Note Chief Complaint Pt presents to ED [...] 12.7 gm/dL (07/02/23 22:10:00) Hct: 38.5 % (07/02/23:10:00) MCV: 90.3 fL (07/02/23 22:10:00) MCH: 29.7 pg (07/02/23:10:00) MCHC: 32.9 gm/dL (07/02/23:10:00) RDW: 13.5 % (07/02/23 22:10:00) Platelet: 183 E9/L (07/02/23 22:10:00) MPV: 9.1 fL (07/02/23 22:10:00) Neutro Auto: 76.7 % High (07/02/23 22:10:00) Lymph Auto: 15.3 % (07/02/23 22:10:00) Wayne Auto: 7.7 % (07/02/23 22:10:00) Eos Auto: 0 % (07/02/23 22:10:00) Basophil Auto: 0.3 % (07/02/23 22:10:00) Neutro Absolute: 4.7 E9/L (07/02/23 22:10:00) Lymph Absolute: 0.9 E9/L Low (07/02/23 22:10:00) Wayne Absolute: 0.5 E9/L (07/02/23 22:10:00) Eos Absolute: 0 E9/L (07/02/23 22:10:00) Basophil Absolute: 0 E9/L (07/02/23 22:10:00) PT: 13.2 second(s) High (07/02/23 22:10:00) INR: 1.2 (07/02/23:10:00) PTT: 30.2 second(s) (07/02/23:10:00) Glucose Lvl: 129 mg/dL (07/02/23 22:10:00) BUN: 13 mg/dL (07/02/23:10:00) Creatinine: 1 mg/dL (07/02/23:10:00) eGFR: 59 mL/min/1.73 m2 (07/02/23:10:00) BUN/Creat Ratio: 13 (07/02/23:10:00) Sodium Lvl: 133 mmol/L Low (07/02/23:10:00) Potassium Lvl: 3.8 mmol/L (07/02/23:10:00) Chloride: 100 mmol/L Low (07/02/23:10:00) CO2: 24 mmol/L (07/02/23:10:00) AGAP: 13 mEq/L (07/02/23:10:00) Calcium Lvl: 9.1 mg/dL (07/02/23:10:00) Alk Phos: 58 Int._Unit/L (07/02/23:10:00) ALT: 66 Int._Unit/L High (07/02/23 22:10:00) AST: 81 Int._Unit/L High (07/02/23:10:00) Total Protein: 6.7 gm/dL (07/02/23 22:10:00) Albumin [...] Trace2 Abnormal (07/02/23 22: (more content not included)...[facility] HospitalComment on above:Result Comment: Electronically Signed By: Noman PATTON DO.br\Date and Time Signed: 07/03/23 02:59 [id number] Hospital Discharge instructions Patient Education 07/01/2023 00:37:46 Abdominal Pain, Adult, Qwbk-nw-Dmjq Abdominal Pain, Adult Many things can cause belly (abdominal) pain. Most times, belly pain is not dangerous. Many cases of belly pain can be watched and treated at home. Sometimes, though, belly pain is serious. Your doctor will try to find the cause of your belly pain. Follow these instructions at home: Medicines Take ndnc-spk-ddqjful and prescription medicines only as told by [...] your belly pain for any changes. Take pcte-xzo-wjztach and prescription medicines only as told by [...] provider. Document Revised: 12/09/2019 Document Reviewed: 12/09/2019 [employer] Patient Education 2022 [employer]. Follow Up Care 06/30/2023 18:51:38 With:Peggy Nazario Address: [address] [place] [address] Business (1) When:07/04/2023 Comments:You can use the Bentyl, Zofran every 6 hours as needed for pain and nausea. Please follow-up with your primary care doctor next 2 to 3 days for further evaluation management. Please return to the ED for any new or worsening symptoms. [facility]11-17-2023 Evaluation + Plan noteExtracted from: Title:ED Note Author:Koby Masterson DO Date :06/30/23 Abdominal pain, acute (R10.9 : Unspecified abdominal pain) Orders: dicyclomine, 20 mg = 2 mL, Injection, IntraMuscular, Once, Stop date 06/30/23 20:58:00 EST, STAT, Start date 06/30/23 20:58:00 EST, 06/30/23 20:58:00 EST dicyclomine, 10 mg = 1 cap(s), Oral, QID, X 7 day(s), # 14 cap(s), Refills(s) 0, Pharmacy: [facility] #[id number], 165, cm, 06/30/23 19:37:00 EST, Height/Length Dosing, [...] q8hr, # 12 tab(s), Refills(s) 0, Pharmacy: [facility] #[id number], 165, cm, 06/30/23 19:37:00 EST, Height/Length Dosing, 55.7, kg, 06/30/23 19:37:00 EST, Weight Dosing Automated Diff Basic Metabolic Panel CBC w/ Auto Diff CT Abdomen/Pelvis w/o Contrast eGFR Extra Blue Tube Hepatic Function Panel Lipase Level UA With Cult Reflex Future Appointments Appointment Date:11/22/2023 01:00:00 PM Scheduled Provider:Micheline BROOKS MD Location:[facility] Appointment Type:URO Office Visit [facility]09-13-2023 Hospital Discharge instructions Patient Education 04/26/2023 [...] symptoms are. Treatment may include: Using an ayhi-xei-hjgclxk vaginal lubricant before sex. Using a long-acting [...] Follow these instructions at home: Medicines Take sdyn-hdm-wyufobx and prescription medicines only as told by your health care provider. Do not use herbal or alternative medicines unless your health care provider says that you can. Use ckud-qae-fnrisyf creams, lubricants, or moisturizers for dryness only [...] provider. Document Revised: 01/28/2021 Document Reviewed: 01/28/2021 [employer] Patient Education 2022 [employer]. Follow Up Care 10/25/2022 10:34:06 With:CECILIA MCMAHON, Micheline Morgan, URL Address: [facility] [address] [place] [address]- When: Unknown [facility] 08-22-2023 Hospital Discharge instructions Patient Education 04/04/2023 [...] Follow these instructions at home: Medicines Take vwss-dvx-xmvhlar and prescription medicines only as told by [...] Watch your condition for any changes. Take oior-pju-rwrdtyl and prescription medicines only as told by [...] provider. Document Revised: 09/18/2020 Document Reviewed: 12/09/2019 [employer] Patient Education 2022 [employer]. Follow Up Care 04/04/2023 13:51:29 With:Peggy Nazario Address: [address] [place], [place] [id number] [facility] (1) When:04/07/2023 16:25:09 Comments:Call the office [...] you develop any new or worsening symptoms. [facility]06-18-2023 Hospital Discharge instructions Patient Education 01/28/2023 23:28:19 RICE Therapy for Routine Care of Injuries, Zvjf-lg-Wsly RICE Therapy for Routine Care of Injuries [...] provider. Document Revised: 05/20/2021 Document Reviewed: 05/20/2021 [employer] Patient Education 2022 [employer] 01/28/2023 23:28:19 Hand Contusion Hand Contusion [...] An elastic wrap to support your hand. Lwvs-zfl-mzwcenn medicines to control pain. Follow these instructions [...] sitting or lying down. General instructions Take ejtz-ddw-kxyfpjh and prescription medicines only as told by [...] provider. Document Revised: 11/18/2021 Document Reviewed: 11/18/2021 [employer] Patient Education 2022 [employer]. Follow Up Care 01/28/2023 21:23:51 With:Pegyg Nazario Address: [address] [place] [phone] Business (1) When:01/31/2023 Comments:Follow-up with your primary care provider in 3 to 5 days. If symptoms worsen, do not improve, or new symptoms arise please report back to emergency department for further evaluation. [facility]06-17-2023 Evaluation + Plan noteExtracted from: Title:ED Note Author:Med Medeiros PA-C te:01/28/23 Contusion of left hand (S60. 222A: Contusion of left hand, initial encounter) Orders: XR Hand 3+ Views Left Future Appointments Appointment Date:04/26/2023 03:15:00 PM Scheduled Provider:Micheline BROOKS MD Location:[facility] Appointment Type:URO Office Visit [facility]03-14-2023 Hospital Discharge instructions Patient Education 10/25/2022 [...] With:Micheline BROOKS Address: [facility] [address] [place] [address] [facility] (1) When:04/27/2023 10:27:19 [facility]07-21-2022 Hospital Discharge instructions Patient Education 03/03/2022 [...] reconstructed. Follow these instructions at home: Take jhfg-lrg-jqwsucx and prescription medicines only as told by [...] 08/26/2016 Document Revised: 03/13/2019 Document Reviewed: 03/13/2019 [employer] Patient Education 2020 [employer]. Follow Up Care 02/28/2022 09:40:23 With:BLADIMIR PALMA, CARMINA Mcclelland, URL Address: [address] [address] When: Unknown [facility] [place] 07-05-2022 Hospital Discharge instructions Patient Education 02/15/2022 14:03:18 Contusion, Jzol-hk-Lgfq Contusion A contusion is a deep bruise. [...] sitting or lying down. General instructions Take jgdt-hrm-milaofc and prescription medicines only as told by [...] is also called RICE. Youmay be given hzpd-uin-gmsocnh medicines for pain. Contact a doctor if [...] 01/16/2009 Document Revised: 03/22/2019 Document Reviewed: 03/22/2019 [employer] Patient Education 2020 [employer]. 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 Contact a doctor if: Your symptoms do [...] 07/31/2006 Document Revised: 11/20/2019 Document Reviewed: 10/06/2017 [employer] Patient Education 2020 [employer]. Follow Up Care 12/24/2021 17:34:06 With:Krysta Church Address: [address] [place] [address], [address] [place] [phone] Business (1) When:12/27/2021 18:21:21 With:Peggy Nazario Address: [address] [place], [place] [phone]- Business (1) When:Within 3 Day(s) [facility] Future Appointments Appointment Date:03/02/2022 02:00:00 PM Scheduled Provider:Micheline BROOKS MD Location:[facility] Appointment Type:URO Office Visit Future Scheduled Tests Laboratory* COVID-19 ([facility]) 08/12/21 [facility] Future Appointments Appointment Date:02/28/2022 09:30:00 AM Scheduled Provider:Yennifer Iraheta MD [facility] Type:Vascular New Patient (FT) Appointment Date:03/02/2022 02:00:00 PM Scheduled Provider:Micheline BROOKS MD Location:[facility] Appointment Type:URO Office Visit Future Scheduled Tests Laboratory* COVID-19 ([facility]) 08/12/21 [facility] Future Appointments Appointment Date:04/04/2022 10:00:00 AM Scheduled Provider:Yennifer Iraheta MD [facility] Type:Vascular New Patient (FT) Future Scheduled Tests Laboratory* COVID-19 ([facility]) 08/12/21 [facility] Evaluation + Plan note Future Appointments Appointment Date:07/25/2022 09:15:00 AM Scheduled Provider:Yennifer Iraheta MD [facility] Type:Vascular Follow Up (FT) Appointment Date:09/26/2022 02:45:00 PM Scheduled Provider:Micheline BROOKS MD Location[facility] Appointment Type:URO Office Visit Future Scheduled Tests Laboratory* COVID-19 ([facility]) 08/12/21 Radiology* US LE Venous Duplex Insufficiency Bilat 06/14/22 [facility] Future Appointments Appointment Date:07/25/2022 09:15:00 AM Scheduled Provider:Yennifer Iraheta MD [facility] Type:Vascular Follow Up (FT) Appointment Date:09/26/2022 02:45:00 PM Scheduled Provider:Micheline BROOKS MD Location:[facility] Appointment Type:URO Office Visit Future Scheduled Tests Laboratory* COVID-19 ([facility]) 08/12/21 [facility] Future Appointments Appointment Date:09/26/2022 02:45:00 PM Scheduled Provider:Micheline BROOKS MD Location:[facility] Appointment Type:URO Office Visit [facility] Future Appointments Appointment Date:12/05/2022 03:00:00 PM Scheduled Provider: Location:.M[facility]MOGRAM Appointment Type:MA Screen (FT) Appointment Date:04/26/2023 03:15:00 PM Scheduled Provider:Micheline BROOKS MD Location:[facility] Appointment Type:URO Office Visit Future Scheduled Tests Radiology* MA Mamm Screen w/CAD if perf and 3D Zac 12/05/22 [facility] Future Appointments Appointment Date:04/26/2023 03:15:00 PM Scheduled Provider:Micheline BROOKS MD Location:[facility] [place] Appointment Type:URO Office Visit [facility] Future Appointments Appointment Date:07/19/2023 03:00:00 PM Scheduled Provider:Micheline BROOKS MD Location:[facility] [place] Appointment Type:URO Office Visit Appointment Date:07/20/2023 10:30:00 AM Scheduled Provider:Johan HENRIQUEZ MD [facility] Type:Cardiology Inpatient Follow Up (FT) Appointment Date:11/22/2023 01:00:00 PM Scheduled Provider:Micheline BROOKS MD [facility] Appointment Type:URO Office Visit Future Scheduled Tests Laboratory* Basic Metabolic Panel 07/12/23 * Digoxin Level 07/12/23 [facility] Future Appointments Appointment Date:01/24/2024 02:30:00 PM Scheduled Provider:Micheline BROOKS MD [facility] Appointment Type:URO Office Visit Future Scheduled Tests Laboratory* Basic Metabolic Panel 07/12/23 * Digoxin Level 07/12/23 [facility] Future Appointments Appointment Date:01/24/2024 02:30:00 PM Scheduled Provider:Miche[facility]KS [facility] Type:[facility]O Office Visit Diagnostic Tests Pending * Urine Culture 11/22/23 Future Scheduled Tests Laboratory* Basic Metabolic Panel 07/12/23 * Digoxin Level 07/12/23 [facility]* Diagnosis Anxiety Anxiety state, unspecified [facility] Diagnosis Gastroesophageal reflux disease without esophagitis Esophageal reflux documented in [facility] encounter [facility]* Diagnosis Non-rheumatic mitral regurgitation- Primary Mitral valve disorders Chronic HFrEF (heart failure with reduced ejection fraction) (HCC) Nonrheumatic tricuspid valve regurgitation Tricuspid valve disorders, specified as nonrheumatic Non-ischemic cardiomyopathy (HCC) Other primary cardiomyopathies Persistent atrial fibrillation (HCC) Atrial fibrillation skilled nursing 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 Long-term (current) use of 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s History of cardioversion Personal history of surgery to heart and great vessels, presenting hazards to health Primary hypertension Unspecified essential hypertension [facility] Diagnosis Mitral valve insufficiency, unspecified etiology- Primary Anxiety Anxiety state, unspecified Paroxysmal atrial fibrillation (CMS/HCC) Atrial fibrillation Other cardiomyopathy (CMS/HCC) Hospital discharge follow-up Other follow-up examination Other thrombophilia (D68.69) Atherosclerosis of aorta (I70.0) Atherosclerosis of aorta [facility] Diagnosis Feeling of incomplete bladder emptying- Primary Incomplete bladder emptying Stricture of female urethra, unspecified stricture type Severe protein-calorie malnutrition (HCC) Other severe protein-calorie malnutrition [facility]* Diagnosis Screening for genitourinary condition Screening for other and unspecified genitourinary condition [facility]* Diagnosis Feeling of incomplete bladder emptying- Primary Incomplete bladder emptying Stricture of female urethra, unspecified stricture type Severe protein-calorie malnutrition (HCC) Other severe protein-calorie malnutrition [facility]* Diagnosis Mitral valve regurgitation due to cardiomyopathy (HCC)- Primary [facility]* Diagnosis Non-rheumatic mitral regurgitation Mitral valve disorders Persistent atrial fibrillation (HCC) Atrial fibrillation Non-ischemic cardiomyopathy (HCC) Other primary cardiomyopathies Chronic HFrEF (heart failure with reduced ejection fraction) ([facility]) [facility]* Diagnosis Stricture of female urethra, unspecified stricture type- Primary Feeling of incomplete bladder emptying Incomplete bladder emptying [facility]* Diagnosis Screening for genitourinary condition Screening for other and unspecified genitourinary condition [facility]* Diagnosis Feeling of incomplete bladder emptying- Primary Incomplete bladder emptying Stricture of female urethra, unspecified stricture type [facility]* Diagnosis Dysuria documented in this encounter [facility]* Diagnosis Anxiety Anxiety state, unspecified documented in this encounter [facility]* Diagnosis Postmenopausal atrophic vaginitis Breast cancer screening by mammogram documented in this encounter [facility]* Diagnosis Dysuria- Primary Urinary frequency Atrial fibrillation, persistent (HCC) (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/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 BMI 22.0-22.9, adult [...] agoraphobia Acute cough- Primary Hematuria, unspecified type skilled nursing 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 Atrial fibrillation, persistent [...] cough- Primary Bruising Contusion of unspecified site 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 Atrial fibrillation, persistent [...] Dysuria Urinary frequency [facility]* Diagnosis Primary hypertension (CMS/HCC)- Primary Unspecified essential hypertension Atrial fibrillation, persistent (HCC) (CMS/HCC) Atherosclerosis of aorta (CMS/HCC) Atherosclerosis of aorta Panic attack (CMS/HCC) Panic disorder without agoraphobia Atrial fibrillation, persistent (HCC) (CMS/HCC)- Primary skilled nursing 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 Primary hypertension (CMS/HCC) [...] agoraphobia Atrial fibrillation, persistent (HCC) (CMS/HCC)- Primary skilled nursing 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 Mitral valve regurgitation due to cardiomyopathy (HCC) (CMS/HCC) Anxiety Anxiety state, unspecified documented in this encounter [facility] Narrative No data available for this section [facility] Dis[facility] instructions No data available for this section [facility] No data available for this section [facility] for referral (narrative) , Mitral Valve and Tricuspid Valve Repair. Referred by: MARTINEZ MCMAHON, Johan Patino [facility] for referral (narrative)* Outpatient Procedure (Routine) - Authorized Specialty Diagnoses / Procedures Referred By Marietta aguiar [facility] To [facility] Diagnoses Non-rheumatic mitral regurgitation Persistent atrial fibrillation (HCC) Non-ischemic cardiomyopathy (HCC) Chronic HFrEF (heart failure with reduced ejection fraction) (HCC) Procedures ECG COMPLETE ECG ROUTINE ECG W/LEAST 12 LDS W/I&R Ana Rivas APRN.CNP [address] [place] [address] [facility] [address] [address] Referral ID Status Reason Start Date Expiration Date Visits Requested Visits Authorized [id number] Authorized Auto-Generat ed Referral 11/08/2023 09/25/2024 1 1 * Transition of Care (Routine) - Ref Not Required Specialty Diagnoses / Procedures Referred By Contac t Referred To Contact Diagnoses Non-rheumatic mitral regurgitation Persistent atrial fibrillation (HCC) Non-ischemic cardiomyopathy (HCC) Chronic HFrEF (heart failure with reduced ejection fraction) (HCC) Procedures CARDIOVASCULAR MEDICINE OP FOLLOW UP APPT ORDER Ana Rivas APRN.CNP [address] [place] [address] Referral ID Status Reason Start Date Expiration Date Visits Requested Visits Authorized [id number] Ref Not Required PCP Requested Referral 09/26/2023 09/25/2024 1 1 * Outpatient Procedure (Routine) - Authorized Specialty Diagnoses / Procedures Referred By Contac t Referred To Contact [facility] Diagnoses Non-rheumatic mitral regurgitation Persistent atrial fibrillation (HCC) Non-ischemic cardiomyopathy (HCC) Chronic HFrEF (heart failure with reduced ejection fraction) (HCC) Procedures ECG COMPLETE ECG ROUTINE ECG W/LEAST 12 LDS W/I&R Ana Rivas APRN.PASSENGER TRAIN BRAKER [address] [place] [address] [facility] [address] [address] Referral ID Status Reason Start Date Expiration Date Visits Requested Visits Authorized [id number] Authorized Auto-Generat ed Referral 10/25/2023 09/25/2024 1 1 * Transition of Care (Routine) - Ref Not Required Specialty Diagnoses / Procedures Referred By Contac t Referred To Contact Diagnoses Non-rheumatic mitral regurgitation Persistent atrial fibrillation (HCC) Non-ischemic cardiomyopathy (HCC) Chronic HFrEF (heart failure with reduced ejection fraction) (HCC) Procedures CARDIOVASCULAR MEDICINE OP FOLLOW UP APPT ORDER Ana Rivas APRN.CNP [address] [place] [address] Referral ID Status Reason Start Date Expiration Date Visits Requested Visits Authorized [id number] Ref Not Required PCP Requested Referral 09/26/2023 [...] W/LEAST 12 LDS W/I&R Ana Rivas APRN.CNP [address] [place] [address] [facility] [place] [address] [place] [address] Referral ID Status Reason Start Date Expiration Date Visits Requested Visits Authorized [id number] Authorized Auto-Generat ed Referral 10/10/2023 09/25/2024 1 1 * Transition of Care (Routine) - Ref Not Required Specialty Diagnoses / Procedures Referred By Contac t Referred To Contact Diagnoses Non-rheumatic mitral regurgitation Persistent atrial fibrillation (HCC) Non-ischemic cardiomyopathy (HCC) Chronic HFrEF (heart failure with reduced ejection fraction) (HCC) Procedures CARDIOVASCULAR MEDICINE OP FOLLOW UP APPT ORDER Ana Rivas APRN.CNP [address] [place] [address] Referral ID Status Reason Start Date Expiration Date Visits Requested Visits Authorized [id number] Ref Not Required PCP Requested Referral 09/26/2023 09/25/2024 1 1 [facility] for referral (narrative)* Consultation (Routine) - Pending Review Specialty Diagnoses / Procedures Referred By Contac t Referred To Contact Cardiothoracic Surgery Diagnoses Mitral valve insufficiency, unspecified etiology Procedures IN OFFICE/OUTPATIENT NEW HIGH MDM 60 MINUTES Peggy Nazario MD [address] [place] [address] Referral ID Status Reason Start Date Expiration Date Visits Requested Visits Authorized [id number] Pending Review Specialty Services Required 09/18/2023 03/16/2024 [...] section and content) DATE CREATED AUTHOR 08/23/[address] [facility] dical Specialist DATE CREATED AUTHOR AUTHOR'S ORGANIZ ATION 06/05/2024 [facility] DATE CREATED AUTHOR AUTHOR'S ORGANIZ ATION 06/11/2024 [facility] DATE CREATED AUTHOR AUTHOR'S ORGANIZ ATION 06/29/2024 [facility] DATE CREATED AUTHOR AUTHOR'S ORGANIZ ATION 11/22/2024 [facility] DATE CREATED AUTHOR AUTHOR'S ORGANIZ ATION 01/25/[address] [facility] dical Specialists [facility] DATE CREATED AUTHOR AUTHOR'S ORGANIZ ATION 02/22/2025 [facility] Care Team (unrecognized sect ion and content) [employer] Teacher Relationship Specialty Start Date End Date Peggy Nazario [address] [place] [address] PCP - General Family Medicine 07/24/23 Micheline Sorto MD [address] [place] [address] Surgeon Cardiac Surg 07/24/23 Johan Henriquez MD [facility] [address] [place] [address] [employer] Cardiology 07/24/23 [employer]urgical [employer] Teacher Relationship Specialty Start Date End Date Peggy Nazario MD [address] [place] [address] PCP - ACO Reach 01/05/23 Peggy Nazario MD [address] [place] [address] PCP - General Family Medicine 02/08/23 [employer] Teacher Relationship Specialty Start Date End Date Peggy Nazario MD [address] [place] [address] PCP - ACO Reach 01/05/23 Peggy Nazario MD [address] [place] [address] PCP - General Family Medicine 02/08/23 [employer] Engineering Teacher Relationship Specialty Start Date End Date Peggy Nazario [address] [place] [address] PCP - General Family Medicine 07/24/23 Micheline Sorto MD [address] [place] [address] Surgeon Cardiac Surg 07/24/23 Johan Henriquez MD [address] [place] [address] [employer] Card[facility] 07/24/23 Alea Harley MD [address] [place] [address] Cardiology 07/28/23 Alea Harley MD [address] [place] [address] Primary Staff Physician Cardiology 08/23/23 Met[employer]urgical Engineering Teacher Relationship Specialty Start Date End Date Peggy Nazario [address] [place] [address] PCP - General Family Medicine 07/24/23 Micheline Sorto MD [address] [place] [address] Surgeon Cardiac Surg 07/24/23 Johan Henriquez MD [address] [place] [address] [employer] Cardiology 07/24/23 Alea Harley MD [address] [place] [address] Cardiology 07/28/23 Alea Harley MD [address] [place] [address] Primary Staff Physician Cardiology 08/23/23 Met[employer]urgical Engineering Teacher Relationship Specialty Start Date End Date Peggy Nazario [address] [place] [address] PCP - General Family Medicine 07/24/23 Micheline Sorto MD [address] [place] [address] Surgeon Cardiac Surg 07/24/23 Johan Henriquez MD [address] [place] [address] [employer] Cardiology 07/24/23 Alea Harley MD [address] [place] [address] Cardiology 07/28/23 Alea Harley MD [address] [place] [address] Primary Staff Physician Cardiology 08/23/23 Met[employer]urgical Engineering Teacher Relationship Specialty Start Date End Date Peggy Nazario MD [address] [place] [address] PCP - ACO Reach 01/05/23 Peggy Nazario MD [address] [place] [address] PCP - General Family Medicine 02/08/23 [employer]urgical Engineering Teacher Relationship Specialty Start Date End Date Peggy Nazario [address] [place] [address] PCP - General Family Medicine 07/24/23 Micheline Sorto MD [address] [place] [address] Surgeon Cardiac Surg 07/24/23 Johan Henriquez MD [facility] [address] [facility] [place] [address] [employer] Cardiology 07/24/23 Alea Harley MD [address] [facility] [address] Cardiology 07/28/23 Alea Harley MD [address] [place] [address] Primary Staff Physician Cardiology 08/23/23 Met[employer]urgical Engineering Teacher Relationship Specialty Start Date End Date Peggy Nazario MD [address] [place] [address] PCP - ACO Reach 01/05/23 Peggy Nazario MD [address] [place] [address] PCP - General Family Medicine 02/08/23 Met[employer]urgical Engineering Teacher Relationship Specialty Start Date End Date Peggy Nazario [address] [place] [address] PCP - General Family Medicine 07/24/23 Micheline Sotro MD [address] [place] [address] Surgeon Cardiac Surg 07/24/23 Johan Henriquez MD [address] [place] [address] [employer] Cardiology 07/24/23 Alea Harley MD [address] [place] [address] Cardiology 07/28/23 Alea Harley MD [address] [place] [address] Primary Staff Physician Cardiology 08/23/23 Metallurgical Engineering Teacher Relationship Specialty Start Date End Date Peggy Nazario [address] [place] [address] [place] [address] PCP - General Family Medicine 07/24/23 Micheline Sorto MD [address] [place] [address] Surgeon Cardiac Surg 07/24/23 Johan Henriquez MD [address] [place] [address] [employer] Cardiology 07/24/23 Alea Harley MD [address] [place] [address] Cardiology 07/28/23 Alea Harley MD [address] [place] [address] Primary Staff Physician Cardiology 08/23/23 Metallurgical Engineering Teacher Relationship Specialty Start Date End Date Peggy Nazario [address] [place] [address] PCP - General Family Medicine 07/24/23 Micheline Sorto MD [address] [place] [address] Surgeon Cardiac Surg 07/24/23 Johan Henriquez MD [address] [facility] [place] [address] [employer] Cardiology 07/24/23 Alea Harley MD [address] [place] [address] Cardiology 07/28/23 Alea Harley MD [address] [place] [address] Primary Staff Physician Cardiology 08/23/23 Metallurgical Engineering Teacher Relationship Specialty Start Date End Date Peggy Nazario [address] [place] [address] PCP - General Family Medicine 07/24/23 Micheline Sorto MD [address] [place] [address] Surgeon Cardiac Surg 07/24/23 Johan Henriquez MD [address] [place] [place] [address] [employer] Cardiology 07/24/23 Alea Harley MD [address] [place] [address] Cardiology 07/28/23 Alea Harley MD [address] [place] [address] Primary Staff Physician Cardiology 08/23/23 Metallurgical Engineering Teacher Relationship Specialty Start Date End Date Peggy Nazario [address] [place] [address] PCP - General Family Medicine 07/24/23 Micheline Sorto MD [address] [place] [address] Surgeon Cardiac Surg 07/24/23 Johan Henriquez MD [address] [place] [address] [employer] Cardiology 07/24/23 Alea Harley MD [address] [place] [address] Cardiology 07/28/23 Alea Harley MD [address] [place] [address] Primary Staff Physician Cardiology 08/23/23 Metallurgical Engineering Teacher Relationship Specialty Start Date End Date Peggy Nazario [address] [place] [address] PCP - General Family Medicine 07/24/23 Micheline Sorto MD [address] [place] [address] Surgeon Cardiac Surg 07/24/23 Johan Henriquez MD [address] [place] [address] [employer] Cardiology 07/24/23 Alea Harley MD [address] [place] [address] Cardiology 07/28/23 Alea Harley MD [address] [place] [address] Primary Staff Physician Cardiology 08/23/23 Metallurgical Engineering Teacher Relationship Specialty Start Date End Date Peggy Nazario [address] [place] [address] PCP - General Family Medicine 07/24/23 Micheline Sorto MD [address] [place] [id number] Surgeon Cardiac Surg 07/24/23 Johan Henriquez MD [address] [place] [address] [employer] Cardiology 07/24/23 Alea Harley MD [address] [place] [address] Cardiology 07/28/23 Alea Harley MD [address] [place] [address] Primary Staff Physician Cardiology 08/23/23 Metallurgical Engineering Teacher Relationship Specialty Start Date End Date Peggy Nazario [address] [place] [address] PCP - General Family Medicine 07/24/23 Micheline Sorto MD [address] [place] [address] Surgeon Cardiac Surg 07/24/23 Johan Henriquez MD [address] [place] [address] [employer] Cardiology 07/24/23 Alea Harley MD [address] [place] [address] Cardiology 07/28/23 Alea Harley MD [address] [place] [address] Primary Staff Physician Cardiology 08/23/23 Metallurgical Engineering Teacher Relationship Specialty Start Date End Date Peggy Nazario MD [address] [place] [address] PCP - ACO Reach 01/05/23 Hannah Brian MD [address] [place] [address] PCP - General Family Medicine 11/03/23 Metallurgical Engineering Teacher Relationship Specialty Start Date End Date Peggy Nazario MD [address] [place] [address] PCP - ACO Reach 01/05/23 Hannah Brian MD [address] [place] [address] PCP - General Family Medicine 11/03/23 Metallurgical Engineering Teacher Relationship Specialty Start Date End Date Peggy Nazario MD [address] [place] [address] PCP - ACO Reach 01/05/23 Hannah Brian MD [address] [place] [address] PCP - General Family Medicine 11/03/23 Metallurgical Engineering Teacher Relationship Specialty Start Date End Date Peggy Nazario MD [address] [place] [address] PCP - ACO Reach 01/05/23 Hannah Brian MD [address] [place] [address] PCP - General Family Medicine 11/03/23 Metallurgical Engineering Teacher Relationship Specialty Start Date End Date Peggy Nazario MD [address] [place] [address] PCP - ACO Reach 01/05/23 Hannah Brian MD [address] [place] [address] PCP - General Family Medicine 11/03/23 Metallurgical Engineering Teacher Relationship Specialty Start Date End Date Peggy Nazario MD [address] [place] [address] PCP - ACO Reach 01/05/23 Hannah Brian MD [address] [place] [address] PCP - General Family Medicine 11/03/23 Metallurgical Engineering Teacher Relationship Specialty Start Date End Date Peggy Nazario MD [address] [place] [address] PCP - ACO Reach 01/05/23 Hannah Brian MD [address] [place] [address] PCP - General Family Medicine 11/03/23 Metallurgical Engineering Teacher Relationship Specialty Start Date End Date Peggy Nazario MD [address] [place] [address] PCP - ACO Reach 01/05/23 Peggy Nazario MD [address] [place] [address] PCP - General Family Medicine 02/08/23 11/02/23 Metallurgical Engineering Teacher Relationship Specialty Start Date End Date Peggy Nazario MD [address] [place] [address] PCP - ACO Reach 01/05/23 Hannah Brian MD [address] [place] [address] PCP - General Family Medicine 11/03/23 Metallurgical Engineering Teacher Relationship Specialty Start Date End Date Peggy Nazario MD [address] [place] [address] PCP - ACO Reach 01/05/23 Hannah Brian MD [address] [place] [address] PCP - General Family Medicine 11/03/23 Metallurgical Engineering Teacher Relationship Specialty Start Date End Date Peggy Nazario MD [address] [place] [address] PCP - ACO Reach 01/05/23 Hannah Brian MD [address] [place] [address] PCP - General Family Medicine 11/03/23 Metallurgical Engineering Teacher Relationship Specialty Start Date End Date Peggy Nazario MD [address] [place] [address] PCP - ACO Reach 01/05/23 Hannah Brian MD [address] [place] [address] PCP - General Family Medicine 11/03/23 Metallurgical Engineering Teacher Relationship Specialty Start Date End Date Peggy Nazario MD [address] [place] [address] PCP - ACO Reach 01/05/23 Hannah Brian MD [address] [place] [address] PCP - General Family Medicine 11/03/23 Metallurgical Engineering Teacher Relationship Specialty Start Date End Date Peggy Nazario MD [address] [place] [address] PCP - ACO Reach 01/05/23 Hannah Brian MD [address] [place] [address] PCP - General Family Medicine 11/03/23 Metallurgical Engineering Teacher Relationship Specialty Start Date End Date Peggy Nazario MD [address] [place] [address] PCP - ACO Reach 01/05/23 Hannah Brian MD [address] [place] [address] PCP - General Family Medicine 11/03/23 Metallurgical Engineering Teacher Relationship Specialty Start Date End Date Peggy Nazario MD [address] [place] [address] PCP - ACO Reach 01/05/23 Hannah Brian MD [address] [place] [address] PCP - General Family Medicine 11/03/23 Source Comments (unrecognize d section and content) In the event this informatio n is protected by the Federal Confidentiality of Alcohol and Drug Abuse Patient Records regulations: The Federal rules restrict any use of the information to criminally investigate or prosecute any alcohol or drug abuse patient.[facility] HospitalIn the event this information is protected by the Federal Confidentiality of Alcohol and Drug Abuse Patient Records regulations: The Federal rules restrict any use of the information to criminally investigate or prosecute any alcohol or drug abuse patient.[facility] HospitalIn the event this information is protected by the Federal Confidentiality of Alcohol and Drug Abuse Patient Records regulations: The Federal rules restrict any use of the information to criminally investigate or prosecute any alcohol or drug abuse patient.[facility] HospitalIn the event this information is protected by the Federal Confidentiality of Alcohol and Drug Abuse Patient Records regulations: The Federal rules restrict any use of the information to criminally investigate or prosecute any alcohol or drug abuse patient.[facility] HospitalIn the event this information is protected by the Federal Confidentiality of Alcohol and Drug Abuse Patient Records regulations: The Federal rules restrict any use of the information to criminally investigate or prosecute any alcohol or drug abuse patient.[facility] HospitalIn the event this information is protected by the Federal Confidentiality of Alcohol and Drug Abuse Patient Records regulations: The Federal rules restrict any use of the information to criminally investigate or prosecute any alcohol or drug abuse patient.[facility] HospitalIn the event this information is protected by the Federal Confidentiality of Alcohol and Drug Abuse Patient Records regulations: The Federal rules restrict any use of the information to criminally investigate or prosecute any alcohol or drug abuse patient.[facility] HospitalIn the event this information is protected by the Federal Confidentiality of Alcohol and Drug Abuse Patient Records regulations: The Federal rules restrict any use of the information to criminally investigate or prosecute any alcohol or drug abuse patient.[facility] HospitalIn the event this information is protected by the Federal Confidentiality of Alcohol and Drug Abuse Patient Records regulations: The Federal rules restrict any use of the information to criminally investigate or prosecute any alcohol or drug abuse patient.[facility] HospitalIn the event this information is protected by the Federal Confidentiality of Alcohol and Drug Abuse Patient Records regulations: The Federal rules restrict any use of the information to criminally investigate or prosecute any alcohol or drug abuse patient.[facility] HospitalIn the event this information is protected by the Federal Confidentiality of Alcohol and Drug Abuse Patient Records regulations: The Federal rules restrict any use of the information to criminally investigate or prosecute any alcohol or drug abuse patient.[facility] HospitalIn the event this information is protected by the Federal Confidentiality of Alcohol and Drug Abuse Patient Records regulations: The Federal rules restrict any use of the information to criminally investigate or prosecute any alcohol or drug abuse patient.[facility] HospitalIn the event this information is protected by the Federal Confidentiality of Alcohol and Drug Abuse Patient Records regulations: The Federal rules restrict any use of the information to criminally investigate or prosecute any alcohol or drug abuse patient.[facility] HospitalIn the event this information is protected by the Federal Confidentiality of Alcohol and Drug Abuse Patient Records regulations: The Federal rules restrict any use of the information to criminally investigate or prosecute any alcohol or drug abuse patient.[facility] HospitalIn the event this information is protected by the Federal Confidentiality of Alcohol and Drug Abuse Patient Records regulations: The Federal rules restrict any use of the information to criminally investigate or prosecute any alcohol or drug abuse patient.[facility] Reason for Visit (unrecogniz ed section [...] cardiomyopathy (HCC) Decompensated heart failure (HCC) Procedures [address] [place] [address] IP/OBS CARE HIGH MDM 75 MINUTES MEDICATION MANAGEMENT CONSULTS [facility] [id number] [id number] Referral ID Status Reason Start Date Expiration Date Visits Re quested Visits Authorized [id number] 1 1 Reason Comments Refill Request Reason Comments Follow Up Reason Comments Cystoscopy-1 Patient Education Reason Comments Gynecologic Exam Medicare off year.ANDRE P: MIR SHEFFIELD 1985HRT: NoneLast pap 07-24-23 neg.Last mammogram 12-05-22 [facility] [place]. Not sure when she can do it d/t cardiac issues.Denies breast, urinary, or bowel concerns. Reason Comments Urinary Frequency Reason Onset Date Comments Med Refill 09/20/2024 Reason Comments Follow-up Reason Comments Nausea Cough Conjunctivitis Reason Comments Right Flank Pain Urinary Frequency dysuria Reason Onset Date Comments Med Refill 01/13/2025 Reason Comments ER Follow-up Inactive Administered Medications - up to 3 [...] BE BASED ON THE PRIMARY CLINICAL RECORDS. [facility]. provides no warranty or guarantee of the accuracy or completeness of information in this document.
[2025-03-02] MEDS: FLUORESCEIN SODIUM 1 MG STRIP OP (16:38)
[2025-03-02] MEDS: TETRACAINE HCL 0.5% OP SOL 80 DROP/4 ML BOTTLE OP (16:38)
[2025-03-02] MEDS: ERYTHROMYCIN OP OINT 0.5% 1 GM TUBE OP (17:16)
--- NOTE | 2025-03-02 17:54 | ED.EYEPROB1 ---
HPI - Eye Problem General Chief complaint: Eye Problems Stated complaint: FOREIGN BODY EYE, DENTAL ISSUE Time Seen by Provider: 03/02/25 16:20 Source: patient Mode of arrival: walk-in History of Present Illness HPI Narrative: The patient is coming today with a concern that she was trying to hang something on the tree when all of a sudden she felt one of the branches slide over her forehead and she thinks there may be a foreign body in her left eye. Patient have no blurry vision No other concerns no head injury and no loss of consciousness Related Data Home Medications �Medication �Instructions �Recorded �Confirmed atorvastatin 40 mg tablet 40 mg PO .once daily 10/15/23 01/30/25 lorazepam 0.5 mg tablet 0.5 mg PO TID PRN anxiety 10/15/23 01/30/25 spironolactone 25 mg tablet 12.5 mg PO .once daily 10/15/23 01/30/25 apixaban 5 mg tablet (Eliquis) 5 mg PO BID 06/01/24 01/30/25 carvedilol 6.25 mg tablet 6.25 mg PO BID 01/19/25 01/30/25 Previous Rx's �Medication �Instructions �Recorded ciprofloxacin HCl 0.2 % ear drops 5 drp otic (ear) BID 7 days #14 ea 01/30/25 in a dropperette tobramycin 0.3 % eye drops 2 drp ophthalmic (eye) Q4H #5 mL 03/02/25 Allergies Allergy/AdvReac Type Severity Reaction Status Date / Time meperidine (From Demerol) Allergy Intermediate Agitated Verified 01/30/25 10:04 Review of Systems ROS Status of ROS 10 or more systems reviewed and unremarkable except as noted in history and below PFSH PFSH Social History Smoking status: Former smoker Little interest or pleasure in doing things: not at all Feeling down, depressed, or hopeless: not at all Exam Narrative Exam Narrative: Nurses notes and vital signs reviewed and patient is not hypoxic. General: Well-appearing and in no apparent distress. Skin: Warm, dry, no pallor noted. No rash. Head: Normocephalic, atraumatic. Neck: Supple, non-tender. Eye: Pupils are equal, round and EOMI. No scleral icterus. The patient initially examination did not show any acute significant finding and with the fluorescein after applying tetracaine I did show the very small remaining of fluorescent in the lower edge of the cornea and the it is almost less than half millimeter line like that extends almost 2 mm Cardiovascular: Regular Rate and Rhythm without murmur, gallop or rub. Respiratory: No accessory muscle use or respiratory distress. Lungs are clear to auscultation, no wheezing, rales or rhonchi Chest Wall: no tenderness Back: No midline thoracic or lumbar vertebral tenderness. No CVA tenderness Musculoskeletal: normal ROM, no calf or popliteal tenderness, no lower extremity edema/swelling GI: Abdomen is soft, non-distended. Normal bowel sounds. No masses appreciated. No tenderness to palpation. No rebound, guarding, or rigidity noted. Neurological: A&O x4. No cranial nerve dysfunction observed. No truncal ataxia. Moves all extremities. Sensation intact. Psychiatric: Cooperative and interactive. Normal mood and affect. Constitutional Vital Signs, click to edit/add: Last Vital Signs Temp 97.7 F 03/02/25 16:12 Pulse 67 03/02/25 16:12 Resp 18 03/02/25 16:12 BP 156/76 H 03/02/25 16:12 Pulse Ox 98 03/02/25 16:12 O2 Del Method Room Air 03/02/25 16:12 Course Vital Signs Vital signs: Vital Signs Temperature 97.7 F 03/02/25 16:12 Pulse Rate 67 03/02/25 16:12 Respiratory Rate 18 03/02/25 16:12 Blood Pressure 156/76 H 03/02/25 16:12 Pulse Oximetry 98 03/02/25 16:12 Oxygen Delivery Method Room Air 03/02/25 16:12 Temperature 97.7 F 03/02/25 16:12 Pulse Rate 67 03/02/25 16:12 Respiratory Rate 18 03/02/25 16:12 Blood Pressure 156/76 H 03/02/25 16:12 Pulse Oximetry 98 03/02/25 16:12 Oxygen Delivery Method Room Air 03/02/25 16:12 MDM - Eye Problem MDM Narrative Medical decision making narrative: There were no signs of trauma to the head and the patient description to what happened it does not seem that she actually had a head injury it was more of a the foreign body sliding on the face and not hitting it and that can explain why the patient had no signs of trauma The patient initially did not have any redness to the conjunctiva but after applying fluorescent I did notice a mild area of possible abrasion Patient was started on tobramycin and discharged to follow-up with the ophthalmology Dr Rivera within 2 days The patient has no other concerns and she was instructed about monitoring her symptoms specially with a history of taking anticoagulation Right now there is no head injury and there is no signs of trauma to the head and the patient description of what happened does not correlate with any possible injury to the head The patient is to follow up with primary care physician in next 2-3 days or to return to the emergency department should any of the signs or symptoms worsen or new symptoms develop. The patient agrees with the following Diagnosis and Treatment plan and the patient will be discharged home. Discharge Plan Discharge Chief Complaint: Eye Problems Clinical Impression: Abrasion, corneal Patient Disposition: Home, Self-Care Time of Disposition Decision: 16:59 Condition: Good Mode of Transportation: Private Vehicle Prescriptions / Home Meds: New tobramycin 0.3 % drops 2 drp ophthalmic (eye) Q4H Qty: 5 0RF Rx Instructions: please eye to the left eye No Action Eliquis 5 mg tablet 5 mg PO BID carvedilol 6.25 mg tablet 6.25 mg PO BID ciprofloxacin HCl 0.2 % dropperette 5 drp otic (ear) BID 7 Days Qty: 14 0RF Rx Instructions: please replace with 0.3 % ophthalmic eye drops incase not available apply to the right ear atorvastatin 40 mg tablet 40 mg PO .once daily spironolactone 25 mg tablet 12.5 mg PO .once daily lorazepam 0.5 mg tablet 0.5 mg PO TID PRN (Reason: anxiety) Print Language: Norwegian Instructions: Corneal Abrasion (DC) Additional Instructions: Follow up with your Eye DR and your Oral surgeon as discussed. Use damp gauze to apply pressure to sites slightly bleeding in your mouth. Use eye drp to left eye every 4 hrs for 3 days Referrals: Dr Rivera [Other] - 03/03/25 Referral Note: please call tomorrow morning to make appointment TANESHA HOOVER [Primary Care Provider] - 1 week Discharge Date/Time: 03/02/25 17:27
== END 2025-03-02 17:27 | disposition home or self-care (01) ==
PROVIDERS: Emergency Provider Emergency Medicine; PCP Student in an Organized Health Care Education/Training Program
DX: S05.02XA Injury of conjunctiva and corneal abrasion without foreign body, left eye, initial encounter (principal); W22.8XXA Striking against or struck by other objects, initial encounter; Z87.891 Personal history of nicotine dependence
CPT/HCPCS: 99283

== ENCOUNTER 2025-03-19 14:05 | Outpatient (OUT) | payer MEDICARE, BC, SELFPAY ==
[2025-03-19 14:21] LABS: Hematocrit 41.7 % (36.0-48.0); Hemoglobin 13.4 g/dL (12.0-16.0); Immature Granulocytes Abs Auto 0.01 10^3/uL (0.00-0.03); Immature Granulocytes Pct Auto 0.1 % (0.0-0.5); Lymphocytes Absolute Auto 1.4 10^3/uL (1.2-3.8); Mean Corpuscular HGB Conc 32.1 g/dL (29.9-35.2); Mean Corpuscular Hemoglobin 29.9 pg (26.7-34.0); Mean Corpuscular Volume 93.1 fL (81.0-99.0); Platelet Count 220 10^3/uL (150-450); Red Blood Count 4.48 10^6/uL (4.20-5.40); White Blood Count 6.8 10^3/uL (4.0-11.0)
== END 2025-03-19 14:06 | disposition home or self-care (01) ==
LOC: LAB 14:06
PROVIDERS: PCP Student in an Organized Health Care Education/Training Program; Visit Provider Internal Medicine Interventional Cardiology
DX: R53.83 Other fatigue (principal)
CPT/HCPCS: 36415; 85025

== ENCOUNTER 2025-04-07 09:49 | Outpatient (RCR) | payer MEDICARE, BC, SELFPAY ==
--- NOTE | 2025-02-18 13:20 | CR1_ITS ---
[facility] Test Date: 2025-02-19 Pat Name: HARJIT ULLOA Department: Room: - Gender: Female Bench Tool Maker: : 1950 Requested By: Barrington Rosa Order Number: [id number] Adelso MD: Barrington Rosa Interpretive Statements Okay to proceed with outlined treatment plan. Electronically Signed On 02-19-2025 10:04:22 EDT by Barrington Rosa
--- NOTE | 2025-02-20 08:30 | CR1_ITS ---
[facility] Test Date: 2025-02-20 Pat Name: HARJIT ULLOA Department: Room: - Gender: Female Shaker Plate Operator: : 1950 Requested By: Barrington Rosa Order Number: [id number] Reading MD: Barrington Rosa Interpretive Statements Okay to proceed with outlined treatment plan. Electronically Signed On 02-24-2025 18:01:39 EDT by Barrington Rosa
--- NOTE | 2025-03-18 14:20 | CR1_ITS ---
[facility] Test Date: 2025-03-18 Pat Name: HARJIT ULLOA Department: Room: - Gender: Female Building Coordinator: : 1950 Requested By: JONATHON GARRIDO Order Number: [id number] [place] MD: NEREYDA CARLTON M.D. Interpretive Statements Patient may continue cardiac rehab as outlined in the treatment plan. Electronically Signed On 03-21-2025 10:27:09 EDT by NEREYDA CARLTON M.D.
--- NOTE | 2025-04-15 14:22 | CR1_ITS ---
[facility] Test Date: 2025-04-15 Pat Name: HARJIT ULLOA Department: Room: - Gender: Female Supervisor Drilling And Shooting: : 1950 Requested By: NEREYDA CARLTON M.D. Order Number: [id number] Adelso MD: NEREYDA CARLTON M.D. Interpretive Statements Patient may continue cardiac rehab as outlined in the treatment plan. Electronically Signed On 04-30-2025 17:57:16 EDT by NEREYDA CARLTON M.D.
--- NOTE | 2025-05-08 10:33 | PC.NURSE ---
short term outreach letter sent to patient
--- NOTE | 2025-05-14 10:49 | CR1_ITS ---
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 Order Number: [id number] Adelso MD: NEREYDA CARLTON M.D. Interpretive Statements Patient may continue cardiac rehab as outlined in the treatment plan. Electronically Signed On 05-14-2025 19:12:04 EDT by NEREYDA CARLTON M.D.
--- NOTE | 2025-05-19 12:55 | CR1_ITS ---
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 Order Number: [id number] Adelso MD: NEREYDA CARLTON M.D. Interpretive Statements Electronically Signed On 05-19-2025 18:32:23 EDT by NEREYDA CARLTON M.D.
== END 2025-05-19 12:54 | disposition home or self-care (01) ==
LOC: CR 09:49
PROVIDERS: PCP Student in an Organized Health Care Education/Training Program; Visit Provider Internal Medicine Interventional Cardiology
DX: I42.9 Cardiomyopathy, unspecified (principal); Z95.2 Presence of prosthetic heart valve; I10 Essential (primary) hypertension; Z95.0 Presence of cardiac pacemaker
CPT/HCPCS: 93798

== ENCOUNTER 2025-04-10 06:06 | Emergency (ER) | payer MEDICARE, BC, SELFPAY ==
--- OUTSIDE RECORDS SUMMARY | 2025-03-31 14:15 | XMS_ITS | Encounter Summary ---
Author Organization [facility] Address [address] [place] [address] Care Team Providers Care Front Desk Administrator Name Role Phone Hannah Brian MD Primary Care Provider [phone] Reason for Referral * Imaging (Routine) - Authorized Specialty Diagnoses / Procedures Referred By Contac t Referred To Contact Cardiology Diagnoses Nonrheumatic tricuspid valve regurgitation Longstanding persistent atrial fibrillation (CMS/HCC) Procedures Transesophageal echo (HAROON) Rafael Robins MD [address] [facility] [place] [address] Phone: tel: fax: [facility] [address] [place] [address] Phone: tel: fax: Referral ID Status Reason Start Date Expiration Date Visits Requested Visits Authorized [id number] Authorized Perform Procedure 03/31/2025 03/31/2026 3 3 Encounter Details Date Type Department Care Team (Late st Contact Info) Description 03/31/2025 2:15 PM EDT Office Visit [facility] [address] [place] [address] Rafael Robins MD [address] [facility] [place] [address] S/P mitral valve clip implantation (Primary Dx); Chronic systolic heart failure (CMS/HCC); Nonrheumatic tricuspid valve regurgitation; Presence of biventricular automatic cardioverter/defibrillat or (AICD); Longstanding persistent atrial fibrillation (CMS/HCC); Hx of atrioventricular node ablation Social History Tobacco Use Types Packs/Day Years Used Date Smoking Tobacco: Former Cigarettes Passive Smoke Exposure: Past Smokeless Tobacco: Never Passive Exposure Comments:roc rivera smoker stopped in 1989 Alcohol Use Standard Drinks/Week Comments Never 0 (1 standard drink = 0.6 oz pur e alcohol) [facility] Utilities Answer Date Recorded In the past 12 months has th e [employer], gas, oil, or water [employer] threatened to shut off services in your [...] any time in the past 12 m [facility], were you homeless or living in [...] Information Value Date Recorded Sex Assigned at Female 03/26/2025 3:11 PM EDT Legal Sex Female 2:11 PM EST Gender Identity Female 03/26/2025 3:11 PM EDT Sexual Orientation Heterosexual or Straight 03/14 3:11 PM EDT documented as of this encounter Last Filed Vital Signs Vital Sign Reading Time Taken Comments Blood Pressure 133/73 03/31/2025 2:36 PM EDT Pulse 70 03/31/2025 2:36 PM EDT Temperature - - Respiratory Rate - - Oxygen Saturation 99% 03/31/2025 2:36 PM EDT Inhaled Oxygen Concentration - - Weight 60.3 kg (133 lb) 03/31/2025 2:36 PM EDT Height 165.1 cm (5' 5 ) 03/31/2025 2:36 PM EDT Body Mass Index 22.13 03/31/2025 2:36 PM EDT documented in this encounter Progress Notes * Rafael Robins MD - 03/31/2025 2:15 PM EDT Images from the original note were not included. [facility] Subjective Asya Asencio is a 75 y.o. year old female patient being seen for 2 month follow up. Patient states she is feeling pretty good. Patients states going upstairs and elevations wear her out, makes her SOB. Patient states she is having problems with the blood thinner, patient states she is having lots ofblood in her urine. Patient states she had lots of bleeding when she had her teeth pulled. Patient denies chest, palpitations/racing heart, leg swelling/pain. Patient complains of VELAZCO, SOB, fatigue. 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 She is a 75-year-old woman with prior medical history significant for heart failure with reduced ejection fraction with an ejection fraction around 40%, atrial fibrillation maintained on anticoagulation therapy digoxin and carvedilol. It seems her issues started around June 2023 when she was dis covered to have atrial fibrillation with rapid ventricular response while undergoing management of few urinary bladder outlet obstruction. In the past she underwent HAROON guided cardioversion in August 2023. She has been found to have moderate to severe mitral regurgitation. Additional medical history includes hypertension and hypothyroidism. At her recent visit with cardiology at [facility] on 09/26/2023 valsartan was stopped and low-dose lisinopril 5 mg once daily was added. The plan was to add Jardiance. There is note of her to being evaluated by CT surgery Dr. Sorto regarding candidacy for cardiac surgery and she was deemed high risk. She was also evaluated at [facility] cardiothoracic surgery. Initial workup for her [...] on 12/01/2023 I referred her to Marco Peguero for consideration of further management of her atrial fibrillation to include A-fib ablation. Dr. Marco Peguero decided to proceed with placement of [...] Her mitral regurgitation was reduced to trivial-mild. echocardiogram around 1 month after the MitraClip procedure showed LVEF 45 to 50% with mild regurgitation and a mean gradient of 2.6 mmHg. There was moderate to severe tricuspid regurgitation with moderately elevated right-sided pressures RVSP 49 mmHg. Today she is seen for follow-up. Currently NYHA class II symptoms. She has no chest pain. She gets mild leg edema. She has on and off hematuria on the Eliquis. She has undergone dental procedures and will be finishing the final phases soon. Review of Systems Constitutional: Positive for malaise/fatigue. Cardiovascular: Positive for dyspnea on exertion (improving) and leg swelling. Negative for palpitations. Hematologic/Lymphatic: Bruises/bleeds easily. Genitourinary: Positive for hematuria. Psychiatric/Behavioral: The patient is nervous/anxious. All other systems reviewed and are negative. Objective Visit Vitals BP 133/73 (BP Location: Right arm, Patient Position: Sitting) Pulse 70 Ht 1.651 m (5' 5 ) Wt 60.3 kg (133 lb) SpO2 99% BMI 22.13 kg/m?? OB Status Postmenopausal Smoking Status Former BSA 1.66 m?? Physical Exam Constitutional: Appearance: She is well-developed. She is not ill-appearing. HENT: Head: Normocephalic and atraumatic. Nose: Nose normal. Eyes: General: No scleral icterus. Pupils: Pupils are equal, round, and reactive to light. Neck: Thyroid: No thyromegaly. Vascular: No JVD. Cardiovascular: Rate and Rhythm: Normal rate and regular rhythm. Pulses: Radial pulses are 2+ on the right side and 2+ on the left side. Heart sounds: Murmur heard. Systolic (LLSB) murmur is present with a grade of [...] General: No swelling. Cervical back: Neck supple. Right lower le+ Pitting Edema present. Left lower le+ Pitting Edema present. Skin: General: Skin is warm and dry. Neurological: General: No focal deficit present. Mental Status: She is alert and oriented to person, place, and time. Psychiatric: Mood and Affect: Mood normal. Behavior: Behavior is cooperative. Judgment: Judgment normal. Allergies Allergies Allergen Reactions Demerol [Meperidine] Shortness of breath Amiodarone Nausea And Vomiting Amoxicillin Diarrhea Cephalexin GI intolerance, Nausea And Vomiting and Unknown Egg Derived Other Reaction(s): allergy Empagliflozin Angioedema Mounchetanro Turned hands different colors and not breathing Erythromycin GI intolerance Morphine Unknown Sulfa (Sulfonamide Antibiotics) GI intolerance and Other Valsartan Wheat Bran Other Reaction(s): allergy Medications Current Outpatient Medications: apixaban (Eliquis) 5 mg [...] mg) by mouth with breakfast and with eveningmeal., Disp: 60 tablet, Rfl: 11 LORazepam (Ativan) 0.5 mg tablet, Take 1 mg by mouth three times daily., Disp: , Rfl: spironolactone (Aldactone) 25 mg tablet, Take 0.5 tablets (12.5 mg) by mouth once daily as directed., Disp: 45 tablet, Rfl: 3 amoxicillin (Amoxil) 500 mg tablet, Take 4 tablets (2,000 mg) by mouth 1 (one) time if needed (30-60 minute prior to dental procedures) for up to 1 dose. (Patient not taking: Reported on 03/31/2025), Disp: 20 tablet, Rfl: 3 Recent Labs Admission on 01/14/2025, Discharged on 01/15/2025 Component Date Value Protime 01/14/2025 14.0 INR 01/14/2025 1.08 Glucose POC 01/14/2025 92 Sodium 01/14/2025 138 Potassium 01/14/2025 3.9 Chloride 01/14/2025 107 CO2 01/14/2025 26 BUN 01/14/2025 11 Creatinine 01/14/2025 0.80 Glucose 01/14/2025 97 Calcium 01/14/2025 8.5 (L) Anion Gap 01/14/2025 9 eGFR 01/14/2025 76.3 BUN/Creatinine Ratio 01/14/2025 13.8 ABO Grouping 01/14/2025 O Rh Type 01/14/2025 POS Ab Scrn 01/14/2025 NEG Auto WBC 01/14/2025 4.84 RBC 01/14/2025 3.80 Hemoglobin 01/14/2025 11.8 (L) Hematocrit 01/14/2025 35.8 (L) MCV 01/14/2025 94.2 MCH 01/14/2025 31.1 MCHC 01/14/2025 33.0 RDW 01/14/2025 13.4 Neutrophils % 01/14/2025 61.6 Lymphocytes % 01/14/2025 27.7 Monocytes % 01/14/2025 8.3 Eosinophils % 01/14/2025 1.4 Basophils % 01/14/2025 0.6 Neutrophils Absolute 01/14/2025 2.98 Lymphocytes Absolute 01/14/2025 1.34 Monocytes Absolute 01/14/2025 0.40 Eosinophils Absolute 01/14/2025 0.07 Basophils Absolute 01/14/2025 0.03 Platelets 01/14/2025 178 nRBC % 01/14/2025 0.0 Immature Granulocytes % 01/14/2025 0.4 Immature Granulocytes Ab* 01/14/2025 0.02 Ventricular Rate 01/14/2025 71 Atrial Rate 01/14/2025 69 QRS DURATION 01/14/2025 176 QT Interval 01/14/2025 514 QTC CALCULATION(BAZETT) 01/14/2025 558 R-[place] 01/14/2025 -52 T Wave [place] 01/14/2025 52 Auto WBC 01/15/2025 12.19 (H) RBC 01/15/2025 4.48 Hemoglobin 01/15/2025 13.6 Hematocrit 01/15/2025 45.2 (H) MCV 01/15/2025 100.9 (H) MCH 01/15/2025 30.4 MCHC 01/15/2025 30.1 (L) RDW 01/15/2025 13.4 Platelets 01/15/2025 176 Sodium 01/15/2025 133 (L) Potassium 01/15/2025 4.7 Chloride 01/15/2025 106 CO2 01/15/2025 19 (L) BUN 01/15/2025 16 Creatinine 01/15/2025 0.84 Glucose 01/15/2025 123 (H) Calcium 01/15/2025 8.3 (L) Anion Gap 01/15/2025 13 eGFR 01/15/2025 72.0 BUN/Creatinine Ratio 01/15/2025 19.0 CHJPRP59% 01/14/2025 97.3 (A) QC Pass/Fail 01/14/2025 Passed QC LOT # 01/14/2025 [id number],963 QC Expiration Date 01/14/2025 73,126 SAMPLESITE 01/14/2025 nl POCT ACT 01/14/2025 158 (A) QC Pass/Fail 01/14/2025 Passed QC LOT # 01/14/2025 8 QC Expiration Date 01/14/2025 73,125 POCT ACT 01/14/2025 303 (A) QC Pass/Fail 01/14/2025 Passed QC LOT # 01/14/2025 8 QC Expiration Date 01/14/2025 73,125 POCT ACT 01/14/2025 331 (A) QC Pass/Fail 01/14/2025 Passed QC LOT # 01/14/2025 8 QC Expiration Date 01/14/2025 73,125 POCT ACT 01/14/2025 150 QC Pass/Fail 01/14/2025 Passed QC LOT # 01/14/2025 8 QC Expiration Date 01/14/2025 73,125 Ventricular Rate 01/15/2025 72 Atrial Rate 01/15/2025 55 QRS DURATION 01/15/2025 124 QT Interval 01/15/2025 416 QTC CALCULATION(BAZETT) 01/15/2025 455 R-[place] 01/15/2025 116 T Wave [place] 01/15/2025 14 Hospital Outpatient Visit on 11/29/2024 Component Date Value Auto WBC 11/29/2024 9.08 RBC 11/29/2024 4.46 Hemoglobin 11/29/2024 13.4 Hematocrit 11/29/2024 41.8 MCV 11/29/2024 93.7 MCH 11/29/2024 30.0 MCHC 11/29/2024 32.1 RDW 11/29/2024 13.3 Platelets 11/29/2024 264 Sodium 11/29/2024 138 Potassium 11/29/2024 4.9 Chloride 11/29/2024 102 CO2 11/29/2024 32 (H) BUN 11/29/2024 14 Creatinine 11/29/2024 0.85 Glucose 11/29/2024 96 Calcium 11/29/2024 9.1 Anion Gap 11/29/2024 9 eGFR 11/29/2024 71.0 BUN/Creatinine Ratio 11/29/2024 16.5 Blood testing 10/15/2023: Hemoglobin 12.7, platelets 204, potassium 4.2, BUN 24, creatinine 0.99, estimated GFR 55, LFTs normal, high-sensitivity troponin 11.4, NT proBNP 4517. Blood testing 01/30/2025: Hemoglobin 13, platelets 234, potassium 4.2, BUN 19, creatinine 0.85, EGFRmore than 60, LFTs normal, high-sensitivity troponin 14.6. Blood testing 03/19/2025: Hemoglobin 13.4, platelets 220. Imaging and other tests Device check 02/18/2025: Normal function, lead measurements stable. 1 NSVT event consistent with VT longest lasting 20 seconds. Echocardiogram 02/07/2025: 1. Normal left ventricular size with mildly reduced systolic function. LVEF is estimated at 45 to 50%. 2. Normal right ventricular size and systolic function. 3. MitraClip device appears well-seated with mild regurgitation and a mean diastolic gradient of 2.6 mmHg at a heart rate of 70 bpm. 4. Moderate to severe tricuspid regurgitation. 5. Mild aortic and pulmonic regurgitation. 6. Moderately elevated right-sided pressures. RVSP is 49 mmHg. ECG 01/30/2025: Electronic ventricular pacemaker with likely underlying atrial fibrillation. ECG 01/14/2025: Ventricular-paced rhythm Biventricular pacemaker detected Abnormal ECG Structural heart procedure 01/14/2025: Successful transcatheter cofx-bp-bogs repair (ANA) of the mitral valve using XTW MitraClip device. 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 Global left ventricular systolic function is at lower limits of normal. The EF is 50 % visually. Left ventricular wall thickness is normal. No regional wall motion abnormality. Right Ventricle: The right ventricle appears normal in size. Right ventricular systolic function appears normal. Left Atrium: The left atrium is severely enlarged. IAS: Nointracardiac shunt by agitated saline injections. Mitral Valve: [...] fentanyl) recommend general anasthesia for future HAROON AV jonathan ablation 06/10/2024: PROCEDURE PERFORMED: 1. Comprehensive EP study. 2. Pre and post ablation device testing. 3. AV node ablation. ECG 06/10/2024: Atrial fibrillation with occasional ventricular-paced complexes Anterior infarct, age undetermined Abnormal ECG Echocardiogram 05/09/2024: Normal effort exercise. Systolic function [...] or 4.9 METS. Functional capacity was 30% ofpredicted peak VO2, which is low. 6. Anaerobic [...] to 0.44 at peak exerise. 10. HR [place] was 2.3%, which is normal. 11. Peak [...] was performed Right heart catheterization 08/23/2023 (at [facility]): Physician Review of hemodynamic waveforms: - [...] MICHELINE SORTO Interpreting physician: Eleonora Moffett MD, VI CTA 08/23/2023: IMPRESSION: Dilated left ventricle, biatrial [...] on 08/23/2023. Similar findings. Cardiac catheterization at [facility] 07/06/2023: Nonobstructive coronary artery disease of the ostial LAD which does not appear to be flow-limiting or require further evaluation. Angiographically normal left circumflex and RCA. Severe left ventricular dysfunction with a left ventricular ejectionfraction of 25 to 30%. Severe mitral regurgitation as evidenced by left ventricular angiogram and confirmed by markedly elevated V wave on [place] catheter wedge pressure tracing. Normal left ventricular end-diastolic pressure. Mild pulmonary hypertension by right heart catheterization. Assessment/Plan Diagnoses and all orders for this visit: S/P mitral valve clip implantation Chronic systolic heart failure (CMS/HCC) Nonrheumatic tricuspid valve regurgitation - Transesophageal echo (HAROON); Future Presence of biventricular automatic cardioverter/defibrillator (AICD) Longstanding persistent atrial fibrillation (CMS/HCC) - Transesophageal echo (HAROON); Future Hx of atrioventricular node ablation 1. Nonrheumatic mitral valve regurgitation status post MitraClip implantation on 01/14/2025: Doing well from that regard. The 1 month echocardiogram showed mild regurgitation. Continue antibiotic for endocarditis prophylaxis prior to dental procedures. 2. Longstanding persistent atrial fibrillation: Status post AV jonathan ablation. Continue Eliquis therapy. She has been having significant hematuria. We again discussed Watchman procedure as an alternative to long-term anticoagulation. I am going to check a transesophageal echocardiogram to assess the left atrial appendage. 3. Nonrheumatic tricuspid valve regurgitation: Moderate to severe by recent transthoracic echocardiogram. I will check transesophageal echocardiogram to assess suitability for TriClip procedure. I explained the procedure in detail. I will plan on seeing her in follow-up in 2 months. Follow up in about 2 months (around 05/31/2025). Rafael Robins MD documented in this encounter Plan of Treatment Upcoming Encounters Date Type Department Care Team (Late st Contact Info) Description 04/16/2025 12:00 PM EDT Appointment [facility] Vascular Lab [address] [place] [address] 05/19/2025 10:45 AM EDT Office Visit [facility] [address] [place] [address] Rafael Robins MD [address] [facility] [address] [facility] [place] [phone] Scheduled Orders Name Type Priority Associated Diagnoses Orde r Schedule Transesophageal echo (HAROON) Echocardiography Routine Nonrheumatic tricuspid valve regurgitation Longstanding persistent atrial fibrillation (CMS/HCC) Expected: 05/01/2025 (Approximate), Expires: 03/31/2027 documented as of this encounter Visit Diagnoses Diagnosis S/P mitral valve clip implantation- Primary Chronic systolic heart failure (CMS/HCC) Chronic systolic heart failure Nonrheumatic tricuspid valve regurgitation Presence of biventricular automatic cardioverter/defibrillator (AICD) Longstanding persistent atrial fibrillation (CMS/HCC) Hx of atrioventricular node ablation documented in this encounter Care Teams Front Desk Administrator Relationship Specialty Start Date End Date Hannah Brian MD [address] [place] [address] PCP - General Family Medicine 11/03/23 documented as of this encounter
--- OUTSIDE RECORDS SUMMARY | 2025-04-07 13:40 | XMS_ITS | Encounter Summary ---
Author Organization [facility] Address [address] [place] [address] Care Team Providers Care Trouble Clerk Name Role Phone Isaac Nazario MD Unavailable [phone] Hannah Brian MD Primary Care Provider [phone] Reason for Visit * Reason Comments Immunizations Declines at this juan carlos e UTI Encounter Details Date Type Department Care Team (Late st Contact Info) Description 04/07/2025 1:40 PM EDT Office Visit [facility] [address] [place] [place] [address] Hannah Brian MD [address] [place] [address] Frequent urination (Primary Dx); Painful urination; Left lower quadrant pain; Gastroesophageal reflux disease without esophagitis; Exertional dyspnea; Mitral valve regurgitation due to cardiomyopathy (HCC); Hypertensive heart disease with heart failure (HCC); Unspecified systolic (congestive) heart failure (HCC) Social History Tobacco Use Types Packs/Day Years [...] Sign Reading Time Taken Comments Blood Pressure 128/62 04/07/2025 1:46 PM EDT Pulse 68 04/07/2025 1:46 PM EDT Temperature 36.8 C (98.2 F) 04/07/2025 1:46 PM EDT Respiratory Rate - - Oxygen Saturation 99% 04/07/2025 1:46 PM EDT Inhaled Oxygen Concentration - - Weight 60.4 kg (133 lb 3.2 oz) 04/07/2025 1:46 P M EDT Height 160 cm (5' 3 ) 04/07/2025 1:46 PM EDT Body Mass Index 23.6 04/07/2025 1:46 PM EDT documented in this encounter Progress Notes * Hannah Brian MD - 04/07/2025 1:40 PM EDT Images from the original note were not included. Subjective Patient ID: Asya Asencio is a 75 y.o. female who presents for Immunizations (Declines at this time) and UTI. HPI Pt here for acute visit. States she has been having lower abd pain, worst on the left side for the last few days. Is having associated constipation after eating nuts and peanut butter crackers. Did drink some prune juice, which has causes non-bloody, non mucus diarrhea. Does have some indigestion. No other OTC tx. Has noticed increasing exertional SOB since last surgery. Did have HAROON scheduled with cardiology next week. Review of Systems General: Denies fever, chills CV: Denies CP, palpitations or swelling in legs Resp: denies cough or wheezing Skin: Denies rash Neuro: Denies LH or dizziness Objective Blood pressure 128/62, pulse 68, temperature 98.2 ??F, temperature source Temporal, height 5' 3 , weight 133 lb 3.2 oz, SpO2 99%. Body mass index is 23.6 kg/m??. Physical Exam General: alert & oriented, NAD Head: NC/AT Oral Cavity: MMM Skin: warm, dry Heart: RRR, systolic murmur, S1S2 nml Lungs: CTA b/l Abdomen: soft, ND/NT, BS wnl Musculoskeletal: normal gait Extremities: no clubbing, cyanosis or edema Neurological: nonfocal Psych: mood/affect full range Assessment/Plan Asya was seen today for immunizations and uti. Diagnoses and all orders for this visit: Frequent urination (Primary) - POCT urinalysis dipstick manually resulted Painful urination - POCT urinalysis dipstick manually resulted Left lower quadrant pain - metroNIDAZOLE (Flagyl) 500 MG tablet; Take 1 tablet (500 mg) by mouth in the morning and 1 tablet(500 mg) before bedtime. Do all this for 7 days. - ciprofloxacin (Cipro) 250 MG tablet; Take 1 tablet (250 mg) by mouth in the morning and 1 tablet (250 mg) before bedtime. Do all this for 7 days. Discussed sx tx, side effects of meds and concerning sx to monitor for. Gastroesophageal reflux disease without esophagitis - famotidine (Pepcid) 40 MG tablet; Take 1 tablet (40 mg) by mouth at bedtime Exertional dyspnea Discussed sx tx and concerning sx to monitor for. Encouraged follow up with cardiology as scheduled Mitral valve regurgitation due to cardiomyopathy (HCC) - as above documented in this encounter Plan of Treatment Not on file documented as of this encounter Procedures Procedure Name Priority Date/Time Associated Diagnosis Comments POCT URINALYSIS DIPSTICK Routine 04/07/2025 1:50 PM EDT Frequent urination Painful urination documented in this encounter Results * POCT urinalysis dipstick manually resulted (04/07/2025 1:50 PM EDT) Color, UA Yellow Clarity, UA Clear Glucose, UA Negative Negative - 2000(110) ++++ mg/dL Bilirubin, UA Negative Negative - 4(70) +++ mg/dL Ketones, UA Negative Negative - 160(16) ++++ mg/dL Spec Grav, UA 1.005 1 - 1.03 Blood, UA Negative Negative - 50 Pedro/mcL pH, UA 6.0 5 - 9 Protein, UA Negative Negative - 2000(20) ++++ mg/dL Urobilinogen, UA 0.2 0.2 - 12 mg/dL Leukocytes, UA Negative Negative - 500+++ Ghislaine/mcL Nitrite, UA Negative Negative - Positive Urine 04/07/2025 1:50 PM EDT us Hannah Brian MD POINT OF CARE TEST ENTER/EDIT ORDERABLES Final Result documented in this encounter Visit Diagnoses Diagnosis Frequent urination- Primary Urinary frequency Painful urination Dysuria Left lower quadrant pain Abdominal pain, left lower quadrant Gastroesophageal reflux disease without esophagitis Esophageal reflux Exertional dyspnea Other dyspnea and respiratory abnormality Mitral valve regurgitation due to cardiomyopathy (HCC) Hypertensive heart disease with heart failure (HCC) Unspecified hypertensive heart disease with heart failure Unspecified systolic (congestive) heart failure (HCC) documented in this encounter Care Teams Trouble Clerk Relationship Specialty Start Date End Date Isaac Nazario MD [address] [place] [address] PCP - ACO Reach 01/05/23 Hannah Brian MD [address] [place] [address] PCP - General Family Medicine 11/03/23 documented as of this encounter
[2025-04-10] VITALS (11 sets, daily range): BP systolic 159–173; BP diastolic 83–92; PULSE 70–74; TEMP 36.5; O2SAT 98–100; BMI 18.3
--- OUTSIDE RECORDS SUMMARY | 2025-04-10 06:14 | XMS_ITS | Encounter Summary ---
Author Organization [facility] Address [address] [place] [address] Care Team Providers Care Service Manager Name Role Phone Hannah Brian MD Primary Care Provider [phone] Encounter Details Date Type Department Care Team (Late st Contact Info) Description 04/02/2025 Telephone [facility] [address] [place] [address] Crystal [place], [place] Social History Tobacco Use Types Packs/Day Years Used Date Smoking Tobacco: Former Cigarettes Passive Smoke Exposure: Past Smokeless Tobacco: Never Passive Exposure Comments:so cial smoker stopped in 1989 Alcohol Use Standard Drinks/Week Comments Never 0 (1 standard drink = 0.6 oz pur e alcohol) [facility] Utilities Answer Date Recorded In the past [...] any time in the past 12 m [facility], were you homeless or living in a [facility] (including now)? No 01/14/2025 Hunger Vital Sign [...] PM EDT documented as of this encounter Miscellaneous Notes * Telephone Encounter - Mary Rojas MA - 04/02/2025 1:26 PM EDT Patient called saying she forgot to mention to you that she's been having intermittent episodes of SOB while walking on a significant incline on the treadmill at cardiac rehab. Says she's been feeling exhausted after rehab. Said she had an episode last night of huffing and puffing while at homewithout exertion. 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 I advisedpatient to refrain from cardiac rehab for now until further workup for tricuspid valve. Florecita and Leonardo from [facility] rehab made aware. documented in this encounter Plan of Treatment Upcoming Encounters Date Type Department Care Team (Late st Contact Info) Description 04/16/2025 12:00 PM EDT Appointment [facility] Vascular Lab [address] [place] [address] 05/19/2025 10:45 AM EDT Office Visit [facility] [address] [place] [address] Rafael Robins MD [address] [facility] [address] [facility] [place] [id number] documented as of this encounter Visit Diagnoses Not on filedocumented in this encounter Care Teams Service Manager Relationship Specialty Start Date End Date Hannah Brian MD [address] [place] [address] PCP - General Family Medicine 11/03/23 documented as of this encounter
--- OUTSIDE RECORDS SUMMARY | 2025-04-10 06:14 | XMS_ITS | Encounter Summary ---
Author Organization [facility] Address [address] [place] [address] Care Team Providers Care At Risk Specialist Name Role Phone Isaac Nazario MD Unavailable [phone] Hannah Brian MD Primary Care Provider [phone] Encounter Details Date Type Department Care Team (Late st Contact Info) Description 11/13/2023 Clinisync Result Encounter [facility] Department Unsolicited Hannah Brian MD [address] [place] [address] Social History Tobacco Use Types Packs/Day Years [...] as of this encounter Plan of Treatment Not on [...] ARAVIND Technologist: JOSE Procedure Note Radiology, Radiologist, - 11/13/2023 Exam Date/Time: 11/13/2023 08:00 EDT [...] on filedocumented in this encounter Care Teams At Risk Specialist Relationship Specialty Start Date End Date Isaac Nazario MD [address] [place] [address] PCP - ACO Reach 01/05/23 Hannah Brian MD [address] [place] [address] PCP - General Family Medicine 11/03/23 documented as of this encounter
--- OUTSIDE RECORDS SUMMARY | 2025-04-10 06:14 | XMS_ITS | Encounter Summary ---
Author Organization [facility] Address [address] [facility] [place] [address] Care Team Providers Care Fur Sewer Name Role Phone Isaac Nazario MD Unavailable [phone] Isaac Nazario MD Primary Care Provider [phone] Hannah Brian MD Primary Care Provider [phone] Encounter Details Date Type Department Care Team (Late st Contact Info) Description 10/18/2023 Clinisync Result Encounter [...] AM EST Narrative 10/18/2023 6:26 PM EST [place] [id number] Respiratory Report Signed Patient: ASYA ULLOA I MR#: [id number] : 1950 Acct:[id number] Age/Sex: 73 / F ADM Date: 10/18/23 Loc: CARD Attending Dr: Jayde-Staff Physician Pedro Ordering Physician: Pat Zhao M.D. Date of Service: 10/18/23 Procedure(s): RT pulmonary function test Accession Number(s): [id number] cc: [facility] Test Date: 2023-10-18 Pat Name: ASYA ULLOA Department: Room: - Gender: Female Concrete Saw Operator: Dave Arreola RRT : 1950 Requested By: [id number] Order Number: [id number] Reading MD: Barrington Rosa Interpretive Statements Spirometry [...] Signed By: 10/18/23 1826 DD/ 0858 TD/TT: Night Guard: Procedure Note Radiology, Radiologist, - 10/18/[address] [address] Respiratory Report Signed Patient: ASYA ULLOA IMR#: [id number] : 8Acct:[id number] Age/Sex: 73 / FADM Date: 10/18/23 Loc: CARD Attending Dr: ConradoStaff Physician Vasquez Ordering Physician: Pat Zhao M.D. Date of Service: 10/18/23 Procedure(s): RT pulmonary function test Accession Number(s): [id number] cc: [facility] Test Date: 2023-10-18 Pat Name: ASYA ULLOA Department: Room: - Gender: Female Concrete Saw Operator: Dave Arreola RRT : 1950 Requested By: [id number] Order Number: [id number] Reading MD: Barrington Rosa Interpretive Statements Spirometry [...] D.O. Signed By:10/18/23 1826 DD/ 0858 TD/TT: Night Guard: Generic External Data Provider [facility] Final Result documented in this encounter Visit Diagnoses Not on filedocumented in this encounter Care Teams Fur Sewer Relationship Specialty Start Date End Date Isaac Nazario MD [address] [place] [address] PCP - ACO Reach 01/05/23 Isaac Nazario MD [address] [place] [address] PCP - General Family Medicine 02/08/23 11/02/23 Hannah Brian MD [address] [place] [address] PCP - General Family Medicine 11/03/23 documented as of this encounter
--- OUTSIDE RECORDS SUMMARY | 2025-04-10 06:14 | XMS_ITS | Clinical Summary ---
Author Organization [facility] Address [address] [facility] [place] [address] Care Team Providers Care Practice Architect Name Role Phone Isaac Nazario MD Unavailable [phone] Hannah Brian MD Primary Care Provider Allergies Active Allergy Reactions Criticality Noted Date [...] vomiting or nausea 20 tablet 4 Active prednisoLONE acetate (Pred-Forte) 1 % ophthalmic suspension 4 Active carvedilol (Coreg) 3.125 MG tablet Take 3.125 mg by mouth in the morning and 3.125 mg in the evening. Take with meals. 5 Active neomycin-polymyxin -dexAMETHasone (Maxitrol) 3.5-73852-7.1 ophthalmic suspension 5 Active LORazepam (Ativan) 0.5 MG tabletIndications: Anxiety Take 1 tablet (0.5 mg) by mouth every 8 (eight) hours if needed for anxiety 90 tablet 5 Active metroNIDAZOLE (Flagyl) 500 MG tabletIndications: Left lower quadrant pain Take 1 tablet (500 mg) by mouth in the morning and 1 tablet (500 mg) before bedtime. Do all this for 7 days. 14 tablet 5 025 Active ciprofloxacin (Cipro) 250 MG tabletIndications: Left lower quadrant pain Take 1 tablet (250 mg) by mouth in the morning and 1 tablet (250 mg) before bedtime. Do all this for 7 days. 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 [address] Loida Nathan LPN 04/07/2025 1:40 PM EDT Office Visit [place] [address] [place] [address] Hannah Brian MD Frequent urination (Primary Dx); Painful urination; Left lower quadrant pain; Gastroesophageal reflux disease without esophagitis; Exertional dyspnea; Mitral valve regurgitation due to cardiomyopathy (HCC); Hypertensive heart disease with heart failure (HCC); Unspecified systolic (congestive) heart failure (HCC) 04/07/2025 Bamboo flowsheet [place] [address] [place] [address] Hannah Brian MD 04/07/2025 Travel 2025 Patient Outreach [place] [address] [place] [address] Loida Nathan LPN 03/03/2025 Patient Outreach [facility] [address] [place] [address] Loida Nathan LPN 02/11/2025 Patient Outreach [facility] [address] [place] [address] Loida Nathan, CALLIE 02/03/2025 Patient Outreach [facility] [address] [place] [address] Loida Nathan LPN 01/31/2025 Patient Outreach [facility] [address] [place] [address] Loida Nathan, CALLIE 01/28/2025 Patient Outreach [facility] [address] 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 [address] Loida Nathan LPN 01/20/2025 Patient Outreach [facility] [address] [place] [address] Loida Nathan LPN 01/16/2025 Patient Outreach [facility] [address] [place] [address] Sana Lei, WOOD MODEL BUILDER 01/13/2025 Patient Outreach [facility] [address] [place] [address] Loida Nathan LPN 01/13/2025 Refill [place] [address] [place] [address] WilsonDiogenesa Anxiety 01/10/2025 Patient Outreach [facility] [address] [place] [address] Loida Nathan, WOOD MODEL BUILDER from Last 3 Months Immunizations Immunization Administration [...] Mass Index 23.6 04/07/2025 1:46 PM EDT Plan of Treatment Health Maintenance Due Date [...] 1:50 PM EDT Frequent urination Painful urination BI MAMMOGRAM SCREENING TOMOSYNTHESIS BILATERAL Routine 12/05/2022 Encounter for screening mammogram for malignant neoplasm of breast COLONOSCOPY Routine 02/15/2018 12:00 PM EDT from Last 3 Months or Most Recently Relevant to Health Maintenance Results * POCT urinalysis dipstick manually resulted [...] Narrative 12/05/2022 12:00 AM EDT PERFORMED AT [facility] LOCATION:[place] [address] Exam Date/Time: 12/05/2022 15:01 EDT Reason for [...] very important to your health. The current [employer] [...] pm Signed by: Jenifer Fisher Transcribed by: AARVIND Technologist: VIANCA Assessment: BI-RADS Category 2-Benign finding Recommendation: Normal interval follow-up Procedure Note CONVERSION, GENERIC - 02/17/2023 PERFORMED AT [facility] LOCATION:[place] [address] Exam Date/Time: 12/05/2022 15:01 EDT Reason for [...] very important to your health. The current [employer] [...] Narrative 02/15/2018 12:00 PM EDT PERFORMED AT [facility] LOCATION:[id number] Procedure Note CONVERSION, GENERIC - 12/28/2022 PERFORMED AT [facility] LOCATION:[id number] Isaac Nazario MD ENDOSCOPY PROCEDURE ORDERABLES Final Result from Last 3 Months or Most Recently Relevant to Health Maintenance Insurance MEDICARE [facility] Care Teams Practice Architect Relationship Specialty Start Date End Date Isaac Nazario MD [address] [place] [address] PCP - ACO Reach 01/05/23 Hannah Brian MD [address] [place] [address] PCP - General Family Medicine 11/03/23
--- OUTSIDE RECORDS SUMMARY | 2025-04-10 06:14 | XMS_ITS | Clinical Summary ---
Author Organization [facility] Address [address] [place] [address] Care Team Providers Care Blemish Remover Name Role Phone Hannah Brian MD Primary Care Provider [phone] Allergies Active Allergy Reactions Criticality Noted Date [...] 1 dose. 20 tablet 3 5 Active Additional Information Patient not taking.Reported on 03/31/2025 carvedilol (Coreg) 6.25 mg tabletIndication s:Primary hypertension Take 1 tablet (6.25 mg) by mouth with breakfast and with evening meal. 60 tablet 11 5 02/12/20 26 Active Active Problems Problem Noted Date Diagnosed [...] 6 month interrogation Paroxysmal atrial fibrillation 02/13/2024 score caller 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 4 Severe protein-calorie [...] Encounters Date Type Department Care Team Description 04/02/2025 Telephone [facility] [address] [place] [address] Mary Rojas MA 03/31/2025 2:15 PM EDT Office Visit [facility] [address] [facility] [place] [address] Rafael Robins MD S/P mitral valve clip implantation (Primary Dx); Chronic systolic heart failure (CMS/HCC); Nonrheumatic tricuspid valve regurgitation; Presence of biventricular automatic cardioverter/defibrillat or (AICD); Longstanding persistent atrial fibrillation (CMS/HCC); Hx of atrioventricular node ablation 03/19/2025 Orders Only [facility] [address] [facility] [place] [address] Allison Jefferson MA Other fatigue (Primary Dx) 02/18/2025 3:45 PM EDT Ancillary Procedure [facility] [address] [place] [address] Encounter for implantable defibrillator reprogramming or check 02/11/2025 Telephone [facility] [address] [place] [address] Yadiel Haines MD 02/11/2025 Refill [facility] [address] [facility] [place] [address] Niecy Mazariegos CNP Primary hypertension 02/10/2025 1:45 PM EDT Follow-Up [facility] [address] [facility] [place] [address] Rafael Robins MD S/P mitral valve clip implantation (Primary Dx); Chronic systolic heart failure (CMS/HCC); Nonrheumatic tricuspid valve regurgitation; Presence of biventricular automatic cardioverter/defibrillat or (AICD); Longstanding persistent atrial fibrillation (CMS/HCC); Hx of atrioventricular node ablation 01/24/2025 Telephone [facility] [address] [place] [address] Allison Jefferson MA 01/23/2025 2:40 PM EDT Follow-Up [facility] [address] [facility] [place] [address] Niecy Mazariegos CNP Nonrheumatic mitral valve regurgitation (Primary Dx); Severe mitral regurgitation; S/P mitral valve repair; Primary hypertension; Chronic systolic heart failure (CMS/HCC); Nonrheumatic tricuspid valve regurgitation; Paroxysmal atrial fibrillation (CMS/HCC); Presence of biventricular automatic cardioverter/defibrillat or (AICD); Cardiac pacemaker in situ 01/15/2025 Telephone [facility] [address] [facility] [place] [address] Allison Jefferson MA 01/14/2025 8:31 AM EDT Anesthesia Event [facility] Vascular Lab [address] [place] [address] Lobo Machado MD 01/14/2025 8:30 AM EDT - 01/14/2025 10:30 AM EDT Surgery [facility] Vascular Lab [address] [facility] [place] [address] Rafael Robins MD Transcatheter mitral valve repair [[id number]] 01/14/2025 7:06 AM EDT - 01/15/2025 5:01 PM EDT Hospital Encounter [facility] [address] [facility] [place] [address] Rafael Robins MD Severe mitral regurgitation (Primary Dx); Nonrheumatic mitral valve regurgitation; Primary hypertension Discharge Disposition: Home or Self Care () 01/14/2025 Travel 01/13/2025 Orders Only [facility] Pre-Anesthesia Clinic [address] [facility] [place] [address] Niecy Benito RN 01/09/2025 Orders Only [facility] [address] [place] [address] Allison Jefferson MA Status post transcatheter aortic valve replacement 01/09/2025 Travel 01/08/2025 Orders Only [facility] Cardiology Clinic [address] [place] [address] Rafia Roger CNP Nonrheumatic mitral valve regurgitation (Primary Dx) from Last 3 Months Immunizations Immunization Administration [...] drink = 0.6 oz pur e alcohol) [facility] Utilities Answer Date Recorded In the past 12 months has th e electric, gas, oil, or water company [...] Heterosexual or Straight 03/14 3:11 PM EDT Last Filed Vital Signs Vital Sign Reading Time Taken Comments Blood Pressure 133/73 03/31/2025 2:36 PM EDT Pulse 70 03/31/2025 2:36 PM EDT Temperature 36.5 C (97.7 F) 01/15/2025 4:00 PM EDT Respiratory Rate 18 01/15/2025 3:30 PM EDT Oxygen Saturation 99% 03/31/2025 2:36 PM EDT Inhaled Oxygen Concentration - - Weight 60.3 kg (133 lb) 03/31/2025 2:36 PM EDT Height 165.1 cm (5' 5 ) 03/31/2025 2:36 PM EDT Body Mass Index 22.13 03/31/2025 2:36 PM EDT Plan of Treatment Upcoming Encounters Date Type Department Care Team (Late st Contact Info) Description 04/16/2025 12:00 PM EDT Appointment [facility] Heart and Vascular Center Vascular Lab [address] [place] [address] 05/19/2025 10:45 AM EDT Office Visit [facility] Heart at [facility] [address] [place] [address] Rafael Robins MD [address] [facility] [place] [address] Health Maintenance Due Date Last Done Comments Medicare Annual Wellness (AWV) 1950 Depression Screening 1960 Pneumococcal Vaccine: 50+ Years (1 of 2 - PCV) 1967 Zoster Vaccines (1 of 2) 1998 COVID-19 Vaccine (1 - 2023-2 5 season) 2024 Influenza Vaccine (#1) 2025 [...] Sigmoidoscopy Discontinued Medical Devices Implanted Type Area Computer Processing Scheduler Device Identifier Shelf Expiration Date Model / Serial / Lot Visionist X4 Is-1/Is4 Implanted:Qty: 1 on 02/28/2024 by Marco Peguero MD at [facility] Device [employer] [id number] 01/25/2026 [id number] / [id number] / System,Mitracl ip,G4,Xtw - [id number] Implanted:Qty: 1 on 01/14/2025 by Rafael Robins MD at [facility] Device N/A: Heart [employer] - Shop. Like a Man. [id number] 03/26/2025 [id number] / / [id number] Ingevity+ Is-1 Bi Positive Fix Ra/Rv 52cm Implanted:Qty: 1 on 02/28/2024 by Marco Peguero MD at [facility] Lead [employer] [id number] 01/28/2026 [id number] / [id number] / Lead,Acuity X4,Straight - [id number] - [id number] Implanted:Qty: 1 on 02/28/2024 by Marco Peguero MD at [facility] Lead Hatch [id number] 01/17/2026 [id number] / [id number] / Procedures Procedure Name Priority Date/Time Associated Diagnosis Comments CARDIAC DEVICE CHECK - IN CLINIC - PACEMAKER BIVENTRICULAR CHAMBER W/ PROG Routine 02/21/2025 5:00 PM EDT Encounter for implantable defibrillator reprogramming or check ECG 12-LEAD Routine 01/15/2025 10:54 AM EDT [...] EDT PROTIME-INR STAT 01/14/2025 7:50 AM EDT from Last 3 Months Results * CARDIAC DEVICE CHECK - IN CLINIC - PACEMAKER BIVENTRICULAR CHAMBER W/ PROG (02/21/2025 5:00 PM EDT) Anatomical Region Laterality Modality Other Narrative 03/04/2025 9:28 AM EDT By using the attestations below, the signing clinician agrees that I have read and verify that the documentation has been personally reviewed by me and ensure that the documentation accurately reflects the encounter. Routine EP device follow up as per schedule. Please see attached note us Marco Peguero MD CV IMPLANTABLE CARDIAC DEVICE MI OCEDURES Final Result * ECG 12 lead (01/15/2025 10:54 AM EDT) Only the most recent of2 resultswithin the time period is included. Ventricular Rate 72 BPM GE MUSE Atrial Rate 55 BPM GE MUSE QRS DURATION 124 ms GE MUSE QT Interval 416 ms GE MUSE QTC CALCULATION(BAZE TT) 455 ms GE MUSE R-[place] 116 degrees GE MUSE T Wave [place] 14 degrees GE MUSE 01/15/2025 10:4 0 [...] Narrative 01/15/2025 12:08 PM EDT 1 1 [facility] Heart Station [address] [place] [address] [phone] (fax) Echocardiogram-[facility] Name: ASYA ULLOA Study Date: 01/15/2025 09:13 AM B/P: 89 mmHg/71 mmHg HR: 70 bpm Date of : 1950 Location: [facility] Height: 65 in. Age: 74 year(s) [...] No pericardial effusion. Procedure Staff Reading Group: [facility] Packing Clerk: NETTIE Meeks, RDCS Ordering Physician: Rafael Robins MD Wall Motion Scores -1 - hyperkinesia, 0 - not evaluated, 1 - normal, 2 - hypokinesia, 3 - akinesia, 4 - dyskinesia Procedure Note Shara Martinez MD - 01/15/2025 1 1 [facility] Heart Station [address] [place] [address] [phone] (fax) Echocardiogram-[facility] Name: ASYA ULLOA Study Date: 01/15/2025 09:13 AM B/P: 89 mmHg/71 mmHg HR: 70 bpm Date of : 1950 Location: [facility] Height: 65 in. Age: 74 year(s) [...] No pericardial effusion. Procedure Staff Reading Group: [facility] Packing Clerk: NETTIE Meeks, RDCS Ordering Physician: Rafael Robins MD Wall Motion Scores -1 - hyperkinesia, 0 - not evaluated, 1 - normal, 2 - hypokinesia, 3 - akinesia, 4 - dyskinesia us Rafael Robins MD CV ECHO PROCEDURES Final Res ult * (ABNORMAL) CBC (01/15/2025 5:23 AM EDT) Auto WBC 12.19(H) 4.00 - 10.60 10*3/uL 01/15/2025 6:09 AM EDT [facility] ([facility]) RBC 4.48 3.80 - 5.00 10*6/uL 01/15/2025 6:09 AM EDT [facility] ([facility]) Hemoglobin 13.6 12.0 - 15.0 g/dL 01/15/2025 6:09 AM EDT [facility] ([facility]) Hematocrit 45.2(H) 36.0 - 45.0 % 01/15/2025 6:09 AM EDT [facility] ([facility]) MCV 100.9(H) 82.0 - 98.0 fL 01/15/2025 6:09 AM EDT [facility] ([facility]) MCH 30.4 27.0 - 33.0 pg 01/15/2025 6:09 AM EDT [facility] ([facility]) MCHC 30.1(L) 32.0 - 35.0 g/dL 01/15/2025 6:09 AM EDT [facility] ([facility]) RDW 13.4 11.5 - 15.0 % 01/15/2025 6:09 AM EDT [facility] ([facility]) Platelets 176 150 - 400 10*3/uL 01/15/2025 6:09 AM EDT [facility] ([facility]) Blood Venous blood specimen / Unknown Venipuncture / Unknown 01/15/2025 5:23 AM EDT 01/15/2025 5:32 AM EDT Rafia Roger [facility] BLOOD ORDERABLES Final Re sult [facility] ([facility]) [address] [place] [address] * (ABNORMAL) Basic metabolic panel (01/15/2025 5:23 AM EDT) Only the most recent of2 resultswithin the time period is included. Sodium 133(L) 136 - 145 mmol/L 01/15/2025 5:55 AM EDT [facility] ([facility]) Potassium 4.7 3.5 - 5.1 mmol/L 01/15/2025 5:55 AM EDT [facility] ([facility]) Chloride 106 98 - 107 mmol/L 01/15/2025 5:55 AM EDT [facility] ([facility]) CO2 19(L) 21 - 31 mmol/L 01/15/2025 5:55 AM EDT [facility] ([facility]) BUN 16 7 - 25 mg/dL 01/15/2025 5:55 AM EDT [facility] ([facility]) Creatinine 0.84 0.60 - 1.20 mg/dL 01/15/2025 5:55 AM EDT [facility] ([facility]) Glucose 123(H) 70 - 100 mg/dL 01/15/2025 5:55 AM EDT [facility] ([facility]) Calcium 8.3(L) 8.6 - 10.3 mg/dL 01/15/2025 5:55 AM EDT [facility] ([facility]) Anion Gap 13 7 - 20 mmol/L 01/15/2025 5:55 AM EDT [facility] ([facility]) eGFR 72.0 >60.0 mL/min/1. 73m*2 01/15/2025 5:55 AM EDT [facility] ([facility]) Comment:[facility] s estimated glomerular filtration rate (eGFR) will [...] BUN/Creatinine Ratio 19.0 11/2024 5:55 AM EDT [facility] ([facility]) Blood Venous blood specimen / Unknown Venipuncture / Unknown 01/15/2025 5:23 AM EDT 01/15/2025 5:31 AM EDT Rafia Roger [facility] BLOOD ORDERABLES Final Re sult [facility] ([facility]) [address] [place] [address] * TRANSESOPHAGEAL ECHO (HAROON) W/ LIMITED DOPPLER AND COLOR FLOW (01/14/2025 11:39 AM EDT) Anatomical Region Laterality Modality Other 01/14/2025 7:49 AM EDT Narrative 01/14/2025 3:59 PM EDT 1 [facility] Heart Station [address] [place] [address] [phone] (fax) Transesophageal Echocardiogram-[facility] Name: ASYA LAILA Study Date: 01/14/2025 07:49 AM B/P: 122 mmHg/67 mmHg HR: 71 bpm Date of : 1950 Location: [facility] Height: 65 in. Age: 74 year(s) Patient Room: 3186 Weight: 135 lb. Gender: Female Patient Status: InPt BSA: 1.67 m2 Indication: Mitral regurgitation, Mitral clip procedure Examination: HAROON/Limited Doppler/CFI Image Quality: Good Patient Consent: Informed, written consent was obtained for the procedure Exam Location: A HAROON was performed in the Cottage Supervisor without complications Anesthesia Performed under General Anesthesia [...] post transseptal puncture. Procedure Staff Reading Group: [facility] Packing Clerk: NETTIE Meeks, RDCS Ordering Physician: RAFIA ROGER Procedure Note Shara Martinez MD - 01/14/2025 1 [facility] Heart Station [address] [facility] [place] [address] [phone] (fax) Transesophageal Echocardiogram-[facility] Name: ASYA ULLOA Study Date: 01/14/2025 07:49 AM B/P: 122 mmHg/67 mmHg HR: 71 bpm Date of : 1950 Location: [facility] Height: 65 in. Age: 74 year(s) Patient Room: 3186 Weight: 135 lb. Gender: Female Patient Status: InPt BSA: 1.67 m2 Indication: Mitral regurgitation, Mitral clip procedure Examination: HAROON/Limited Doppler/CFI Image Quality: Good Patient Consent: Informed, written consent was obtained for the procedure Exam Location: A HAROON was performed in the Cottage Supervisor without complications Anesthesia Performed under General Anesthesia [...] post transseptal puncture. Procedure Staff Reading Group: [facility] Packing Clerk: NETTIE Meeks, RDCS Ordering Physician: RAFIA ROGER [...] - 01/15/2025 6:43 AM EDT Qc lot [id number]; needle punch machine operator helper [id number] Rafael Robins MD POINT OF CARE [...] today for that purpose. PROCEDURES: Successful transcatheter [id number] repair (ANA) of the mitral valve using XTW MitraClip device. Transseptal puncture performed under fluoroscopic and transesophageal echocardiography guidance. Preclosure in the right common femoral vein using two 6-Vincentian ProGlide devices. Access into the right and left common femoral vein under ultrasound guidance. OPERATORS: Interventional Air Table Operator: Rafael Robins MD. Ag Service Manager Interventional Air Table Operator: Chi Bejarano MD. Interventional Spray Rig Operator: Dr Hunter Mittal. METHODS: Procedure was explained to the patient with risks and benefits. she signed informed consent. she was brought to r and d lab technician in a fasting state. The procedure was performed in the cardiac r and d lab technician under general anesthesia administered by [...] the left common femoral vein and a 4-Vincentian x 11 cm sheath was placed in order to gain central venous access for administration of medications and fluids. Micropuncture technique and ultrasound guidance were used for access in the right common femoral vein and a 6-Vincentian x 11 cm sheath was placed. A preclosure in the right common femoral vein was performed using two 6-Vincentian ProGlide devices. The access sheath was then [...] at the end of the procedure. The 4-Vincentian left femoral venous sheath was removed and [...] Study Details Nonrheumatic mitral valve regurgitation [I34.0] aRfia Roger CNP CV CARDIAC CATH PROCEDURES Fi nal Result * (ABNORMAL) CBC auto differential (01/14/2025 9:35 AM EDT) Auto WBC 4.84 4.00 - 10.60 10*3/uL 01/14/2025 9:48 AM EDT [facility] ([facility]) RBC 3.80 3.80 - 5.00 10*6/uL 01/14/2025 9:48 AM EDT [facility] ([facility]) Hemoglobin 11.8(L) 12.0 - 15.0 g/dL 01/14/2025 9:48 AM EDT [facility] ([facility]) Hematocrit 35.8(L) 36.0 - 45.0 % 01/14/2025 9:48 AM T [facility] ([facility]) MCV 94.2 82.0 - 98.0 fL 01/14/2025 9:48 AM EDT [facility] ([facility]) MCH 31.1 27.0 - 33.0 pg 01/14/2025 9:48 AM EDT [facility] ([facility]) MCHC 33.0 32.0 - 35.0 g/dL 01/14/2025 9:48 AM EDT [facility] ([facility]) RDW 13.4 11.5 - 15.0 % 01/14/2025 9:48 AM EDT [facility] ([facility]) Neutrophils % 61.6 40.0 - 72.0 % 01/14/2025 9:48 AM EDT [facility] ([facility]) Lymphocytes % 27.7 20.0 - 45.0 % 01/14/2025 9:48 AM EDT [facility] ([facility]) Monocytes % 8.3 5.0 - 12.0 % 01/14/2025 9:48 AM EDT [facility] ([facility]) Eosinophils % 1.4 0.0 - 6.0 % 01/14/2025 9:48 AM EDT [facility] ([facility]) Basophils % 0.6 0.0 - 1.0 % 01/14/2025 9:48 AM EDT [facility] ([facility]) Neutrophils Absolute 2.98 1.60 - 7.60 10*3/uL 01/14/2025 9:48 AM EDT [facility] ([facility]) Lymphocytes Absolute 1.34 1.20 - 4.00 10*3/uL 01/14/2025 9:48 AM EDT [facility] ([facility]) Monocytes Absolute 0.40 0.10 - 1.00 10*3/uL 01/14/2025 9:48 AM EDT [facility] ([facility]) Eosinophils Absolute 0.07 0.00 - 0.50 10*3/uL 01/14/2025 9:48 AM EDT [facility] ([facility]) Basophils Absolute 0.03 0.00 - 0.20 10*3/uL 01/14/2025 9:48 AM EDT [facility] ([facility]) Platelets 178 150 - 400 10*3/uL 01/14/2025 9:48 AM EDT [facility] ([facility]) nRBC % 0.0 0 % 01/14/2025 9:48 AM EDT [facility] ([facility]) Immature Granulocytes % 0.4 0.0 - 1.0 % 01/14/2025 9:48 AM EDT [facility] ([facility]) Immature Granulocytes Absolute 0.02 0.00 - 0.20 10*3/uL 01/14/2025 9:48 AM EDT [facility] ([facility]) Blood Venous blood specimen / Unknown Venipuncture / Unknown 01/14/2025 9:35 AM EDT 01/14/2025 9:35 AM EDT us Rafael Robins MD LAB BLOOD ORDERABLES Final R esult [facility] ([facility]) [address] [place] [address] * Type and screen (01/14/2025 9:35 AM EDT) ABO Grouping O 01/14/2025 10:24 AM EDT [facility] BLOOD BANK Rh Type POS 01/14/2025 10:24 AM EDT [facility] BLOOD BANK Ab Scrn NEG 01/14/2025 10:24 AM EDT [facility] BLOOD BANK Blood Venous blood specimen / Unknown Venipuncture / Unknown 01/14/2025 9:35 AM EDT 01/14/2025 9:35 AM EDT us Rafael Robins MD LAB BLOOD BANK TEST ORDERABL ES Final Result [facility] BLOOD BANK * (ABNORMAL) POC Hb02% (01/14/2025 9:32 AM EDT) [id number]% 97.3(A) 90 - 95 % QC Pass/Fail Passed QC LOT # [id number] QC Expiration Date 73,126 SAMPLESITE nl Blood Venous blood specimen / Unknown 01/14/2025 9:32 AM EDT Narrative Jonas Blas MT - 01/15/2025 6:28 AM EDT Air Table Operator [id number] us Rafael Robins MD POINT OF [...] no complications. Additional notes: GA Staffing Performed: resident/PIPELAYER/CAA Anesthesiologist: Lobo Machado MD Resident/PIPELAYER: Margaret Briceno MD Performed by: Irving Mendoza MD Authorized by: Lobo Machado MD us Lobo Machdao MD ANESTHESIA ORDERABLES Final Re sult * MI AN ELECTIVE ENDOTRACHEAL AIRWAY (01/14/2025 8:52 AM EDT) Lobo Hilliard MD - 01/14/2025 8:52 AM EDT Irving Mendoza MD 01/14/2025 10:17 AM Airway Date/Time: 01/14/2025 8:52 AM Urgency: elective Airway not difficult General Information and Staff Patient location during procedure: [place] Anesthesiologist: Lobo Machado MD Resident/PIPELAYER/CAA: Margaret Briceno MD Performed: resident/PIPELAYER/CAA Indications and Patient Condition Indications for airway [...] - 105 mg/dL 01/14/2025 8:01 AM EDT [facility] ([facility]) Comment:[email or web address] Blood Capillary blood specimen / Unknown 01/14/2025 7:50 AM EDT 01/14/2025 8:01 AM EDT Narrative [facility] ([facility]) - 01/14/2025 8:01 AM EDT Waived Testing in the ED is performed under the ED CLIA certificate #[id number]. us Rafael Robins MD LAB BLOOD ORDERABLES Final R esult [facility] ([facility]) [address] [place] [address] * Protime-INR (01/14/2025 7:50 AM EDT) Protime 14.0 12.3 - 14.8 Seconds 01/14/2025 8:21 AM EDT [facility] ([facility]) INR 1.08 0.90 - 1.10 01/14/2025 8:21 AM EDT [facility] ([facility]) Comment: [facility] RECOMMENDED INR FOR WARFARIN [...] AM EDT 01/14/2025 8:13 AM EDT us Rafeal Robins MD LAB BLOOD ORDERABLES Final R esult [facility] ([facility]) [address] [place] [address] from Last 3 Months Insurance MEDICARE [facility] Advance Directives * Full Code (Latest Code Status on File) Date Activated Date Inactivated Comments 01/14/2025 2:43 PM 01/15/2025 7:02 PM * Full Code Date Activated Date Inactivated Comments 01/14/2025 2:43 PM 01/14/2025 2:43 PM Care Teams Blemish Remover Relationship Specialty Start Date End Date Hannah Brian MD [address] [place] [address] PCP - General Family Medicine 11/03/23
--- OUTSIDE RECORDS SUMMARY | 2025-04-10 06:14 | XMS_ITS | Encounter Summary ---
Author Organization [facility] Address [address] [place] [address] Care Team Providers Care Machine Repair Person Name Role Phone Isaac Nazario MD Unavailable [phone] Hannah Brian MD Primary Care Provider [phone] Encounter Details Date Type Department Care Team (Late st Contact Info) Description 04/07/2025 Bamboo flowsheet [facility] [address] [place] [address] Hannah Brian MD [address] [place] [id number] Social History Tobacco Use Types Packs/Day Years [...] on filedocumented in this encounter Care Teams Machine Repair Person Relationship Specialty Start Date End Date Isaac Nazario MD [address] [place] [address] PCP - ACO Reach 01/05/23 Hannah Brian MD [address] [place] [address] PCP - General Family Medicine 11/03/23 documented as of this encounter
--- OUTSIDE RECORDS SUMMARY | 2025-04-10 06:14 | XMS_ITS | Encounter Summary ---
Author Organization [facility] Address [address] [place] [address] Care Team Providers Care Feed Mill Supervisor Name Role Phone Isaac Nazario MD Unavailable [phone] Hannah Brian MD Primary Care Provider [phone] Encounter Details Date Type Department Care Team (Latest Contact Info) Description 04/07/2025 Travel Social History Tobacco Use Types Packs/Day [...] on filedocumented in this encounter Care Teams Feed Mill Supervisor Relationship Specialty Start Date End Date Isaac Nazario MD [address] [place] [address] PCP - ACO Reach 01/05/23 Hannah Brian MD [address] [place] [address] PCP - General Family Medicine 11/03/23 documented as of this encounter
--- OUTSIDE RECORDS SUMMARY | 2025-04-10 06:14 | XMS_ITS | Encounter Summary ---
Author Organization [facility] Address [address] [place] [address] Care Team Providers Care Office Support Specialist Name Role Phone Isaac Nazario MD Primary Care Provider [phone] Irving Sorto MD Unavailable [phone] Johan Mireles MD Unavailable [phone] Isaac Nazario MD Primary Care Provider [phone] Dick Singh MD Unavailable Unavailable Dick Singh MD Unavailable Unavailable Source Comments In the event this information is protected by the Federal Confidentiality of Alcohol and Drug AbusePatient Records regulations: The Federal rules restrict any use of the information to criminally investigate or prosecute any alcohol or drug abuse patient.[facility] Encounter Details Date Type Department Care Team (Late st Contact Info) Description 02/23/2018 Letters (in) Colorectal Surgery [address] [place] [id number] Asa Macdonald MD [address] [place] [address] Social History Tobacco Use Types [...] AM EDT February 23, 2018 Asya Ruiz [address], [place] [address] NAME: ASYA ASENCIO I CLINIC NO.: [id number] DATE OF SERVICE: 02/23/2018 Dear Mrs. Asencio: This is a note regarding the colonoscopy done for you on the February 15, 2018. The indication was to screen your colon. The colon looked completely normal and I have recommended another check in 5 years. With kind regards. Yours sincerely, Asa Macdonald MD Department of Colorectal Surgery Date Dictated: 02/23/2018 Date Typed: [facility] 02/24/2018 JOB# [id number] documented in this encounter Plan of Treatment Not on file documented as of this encounter Visit Diagnoses Not on filedocumented in this encounter Care Teams Office Support Specialist Relationship Specialty Start Date End Date Isaac Nazario MD PCP - General 10/28/05 07/23/[address] Isaac [place] [address] PCP - General Family Medicine 07/24/23 Irving Sorto MD [address] [place] [address] Surgeon Cardiac Surg 07/24/23 Johan Mireles MD [facility] [place] [address] Optoelectronics Engineer Cardiology 07/24/23 Dick Singh MD [address] [place] [address] Cardiology 07/28/23 06/02/24 Dick Singh MD [address] [place] [address] Primary Staff Physician Cardiology 08/23/23 documented as of this encounter
--- OUTSIDE RECORDS SUMMARY | 2025-04-10 06:14 | XMS_ITS | Encounter Summary ---
Author Organization [facility] Address [address] [place] [address] Care Team Providers Care Middleware Systems Architect Name Role Phone Hannah Brian MD Primary Care Provider [phone] Encounter Details Date Type Department Care Team (Late st Contact Info) Description 12/04/2024 Orders Only [facility] Card[facility] Clinic [address] [place] [address] Marco Peguero MD [address] [place] [address] Social History Tobacco Use Types [...] PM EDT documented as of this encounter Plan of Treatment Upcoming Encounters Date Type Department Care Team (Late st Contact Info) Description 04/16/2025 12:00 PM EDT Appointment [facility] V[facility] Center Vascular Lab [address] [place] [address] 05/19/2025 10:45 AM EDT Office Visit [facility] at [facility] [address] [place] [address] Rafael Robins MD [address] [facility] [address] [facility] [place] [address] documented as of this encounter Procedures Procedure Name Priority Date/Time Associated Diagnosis Comments CARDIAC DEVICE CHECK - REMOTE - PACEMAKER Routine 12/04/2024 12:00 AM EDT documented in this encounter Results * Cardiac device check - Remote pacemaker (12/04/2024 12:00 AM EDT) Anatomical Region Laterality Modality Other 12/04/2024 us Marco Peguero MD CV IMPLANTABLE CARDIAC DEVICE CO OCEDURES Final Result documented in this encounter Visit Diagnoses Not on filedocumented in this encounter Care Teams Middleware Systems Architect Relationship Specialty Start Date End Date Hannah Brian MD [address] [place] [address] PCP - General Family Medicine 11/03/23 documented as of this encounter
--- OUTSIDE RECORDS SUMMARY | 2025-04-10 06:14 | XMS_ITS | Encounter Summary ---
Author Organization [facility] Address [address] [facility] [place] [address] Care Team Providers Care Warehouse Processor Name Role Phone Peggy Whitley MD Unavailable [phone] Peggy Whitley MD Primary Care Provider [phone] Hannah Brian MD Primary Care Provider [phone] Encounter Details Date Type Department Care Team [...] EST Narrative 10/18/2023 11:29 [place] [address] Ultrasound Report Signed Patient: ASYA ULLOA I MR#: [id number] : 1950 Acct:[id number] Age/Sex: 73 / F ADM Date: 10/18/23 Loc: CARD Attending Dr: Non-Staff Physician Pedro Ordering Physician: PhysicianConradoStaff Pedro Date of Service: 10/18/23 Procedure(s): US carotid duplex BI Accession Number(s): [id number] cc: PEGGY WHITLEY ; PhysicianNon-Staff Pedro [place] [address] Patient Name: ASYA ULLOA MRN: [id number] date: 1950 Sex: F Assigned Patient Location: CARD Current Patient Location: CARD Accession/Order Number: [id number] Exam Date: 10/18/2023 09:50 Report Date: 10/18/2023 [...] Signed By: 10/18/23 1129 DD/ 1126 TD/TT: Supervisor Dry Cell Assembly: Procedure Note Radiology, Radiologist, MD - 10/18/2023 [place] [address] Ultrasound Report Signed Patient: ASYA ULLOA IMR#: [id number] : 1950cct:[id number] Age/Sex: 73 / FADM Date: 10/18/23 Loc: CARD Attending Dr: Non-Staff Physician Pedro Ordering Physician: PhysicianNon-Staff Pedro Date of Service: 10/18/23 Procedure(s): US carotid duplex BI Accession Number(s): [id number] cc: PEGGY WHITLEY ; Physician,ConradoStaff Pedro [address] [place] [address] Patient Name: ASYA ULLOA MRN: [id number] date: 1950 Sex: F Assigned Patient Location: CARD Current Patient Location: CARD Accession/Order Number: [id number] Exam Date: 10/18/2023 09:50 Report Date: 10/18/2023 [...] US Thresholds (Reference: Jonathan EG, et al. [id number]; 214:247-252) Stenosis (%) PSV (cm/sec) VICA/VCCA 0-49 <150 <2.5 50-69 150-225 2.5-4.0 >70 >225 >4.0 Electronically authenticated by: LEXA DYSON Date: 10/18/2023 11:26 Dictated By: Lexa Dyson M.D. Signed By:10/18/23 1129 DD/ 1126 TD/TT: Supervisor Dry Cell Assembly: us Generic External Data Provider IMG US PROCEDURES Final Result documented in this encounter Visit Diagnoses Not on filedocumented in this encounter Care Teams Warehouse Processor Relationship Specialty Start Date End Date Peggy Whitley MD [address] [place] [address] PCP - ACO Reach 01/05/23 Peggy Whitley MD [address] [place] [address] PCP - General Family Medicine 02/08/23 11/02/23 Hannah Brian MD [address] [place] [address] PCP - General Family Medicine 11/03/23 documented as of this encounter
--- OUTSIDE RECORDS SUMMARY | 2025-04-10 06:14 | XMS_ITS | Encounter Summary ---
Author Organization [facility] Address [address] [facility] [place] [address] Care Team Providers Care Vegetable Loader Name Role Phone Isaac Nazario MD Unavailable [phone] Isaac Nazario MD Primary Care Provider [phone] Hannah Brian MD Primary Care Provider [phone] Encounter Details Date Type Department Care Team (Late st Contact Info) Description 08/23/2023 Clinisync Result Encounter [...] 74 - 99 mg/dL [facility] Comment: The [place] Diabetes Association (ADA) provides guidance for cutoff [...] Standards of Medical Care in Diabetes 2016, [place] [employer] Association. Diabetes Care. 2016.39(Suppl 1). [facility] [...] EST Specimen Type: BLOOD SPECIMEN Ordering Facility: [facility] Address: [address] [place] [address] Original Ordering Provider: YECENIA GLEZ us Generic External Data Provider THOMAS cruz Result [facility] [address] [place] [address] * (ABNORMAL) [facility] NT-PROBNP SERPL-MCNC (08/23/2023 11:44 AM EST) [facility] NT-PROBNP SERPL-MCNC 3,265(H) <450 pg/mL [facility] 08/23/2023 11:4 4 AM EST 08/23/2023 12:11 PM EST Narrative CLINISYNC - 08/23/2023 12:50 PM EST Specimen Type: BLOOD SPECIMEN Ordering Facility: [facility] Address: [address] [place], [place] [id number] Original Ordering Provider: YECENIA GLEZ us Generic External Data Provider LUCÍAISYNC F inal Result Performing Organization Address [facility] Co de Phone Number DANIELLENC [facility] [address] [address] * [facility] CBC PNL BLD AUTO (08/23/2023 11:44 AM EST) [facility] WBC # BLD AUTO 6.24 3.70 [...] EST Specimen Type: BLOOD SPECIMEN Ordering Facility: [facility] Address: [address] [place] [address] Original Ordering Provider: YECENIA GLEZ us Generic External Data Provider CLINISYNC F inal Result Performing Organization Address [facility] Co de Phone Number DANIELLENC [facility] [address] [address] * (ABNORMAL) [facility] CREATININE BLD (08/23/2023 8:13 [...] AM EST 08/23/2023 9:43 AM EST Narrative THOMAS - 08/23/2023 2:51 PM EST Specimen Type: BLOOD SPECIMEN Ordering Facility: [facility] Address: [address] [place] [address] Original Ordering Provider: MICHELINE BARRIGA Generic External Data Provider [employer]IN[employer] F ina Result [facility] [address] [place] [address] * CTA CHEST (GATED) W IVCON (08/23/2023 [...] AORTIC DIMENSIONS: AORTIC ROOT: 3.5 cm measured qsugd-db-vefth Area cm2 mid ASCENDING THORACIC AORTA: 2.9 cm Area cm2 mid DESCENDING THORACIC AORTA: 2.2 cm limited upper ABDOMEN: unremarkable BONES: Unremarkable Stroke Belt Sander Operator (topogram) images: No additional findings. IMPRESSION: Dilated left ventricle, biatrial enlargement. Mitral valve is noncalcified. Normal caliber thoracic aorta. Automation Sales Manager: LILIANA Transcribe Date/Time: Aug 23 2023 11:20A Dictated by : SARAH CARNEY MD This examination was interpreted and the report reviewed and electronically signed by: SARAH CARNEY MD on Aug 23 2023 12:14PM EST [id number]^[id number]^SI^ACN Procedure Note Radiology, Radiologist, - 08/23/2023 * [...] AORTIC DIMENSIONS: AORTIC ROOT: 3.5 cm measured bqaln-nr-quyxq Area cm2 mid ASCENDING THORACIC AORTA: 2.9 cm Area cm2 mid DESCENDING THORACIC AORTA: 2.2 cm limited upper ABDOMEN: unremarkable BONES: Unremarkable Stroke Belt Sander Operator (topogram) images: No additional findings. IMPRESSION: Dilated left ventricle, biatrial enlargement. Mitral valve is noncalcified. Normal caliber thoracic aorta. Automation Sales Manager: PSCB Transcribe Date/Time: Aug 23 2023 11:20A Dictated by : SARAH CARNEY MD This examination was interpreted and the report reviewed and electronically signed by: SARAH CARNEY MD on Aug 23 2023 12:14PM EST [id number]^SI^ACN Generic External Data Provider [facility] IMAGING Final Result documented in this encounter Visit Diagnoses Not on filedocumented in this encounter Care Teams Vegetable Loader Relationship Specialty Start Date End Date Isaac Nazario MD [address] [place] [address] PCP - ACO Reach 01/05/23 Isaac Nazario MD [address] [place] [address] PCP - General Family Medicine 02/08/23 11/02/23 Hannah Brian MD [address] [place] [address] PCP - General Family Medicine 11/03/23 documented as of this encounter
--- OUTSIDE RECORDS SUMMARY | 2025-04-10 06:14 | XMS_ITS | Encounter Summary ---
Author Organization [facility] Address [address] [place] [address] Care Team Providers Care Television Journalist Name Role Phone Isaac Nazario MD Unavailable [phone] Hannah Brian MD Primary Care Provider [phone] Encounter Details Date Type Department Care Team (Late st Contact Info) Description 04/09/2025 Patient Outreach [facility] [address] [place] [phone] Loida Nathan LPN [address] [place] [address] Social History Tobacco Use Types Packs/Day Years [...] Progress Notes * Loida Nathan LPN - 04/09/2025 11:29 AM EDT Call to pt for monitor and care plan. She states that she is feeling a little sick to her stomach with the ATB but she is able to control it and eat some crackers. She is enjoying the weather and has been walking to keep her occupied. She feels that her anxiety has actually been pretty well controlled. She feels that her cardiac implant has helped with her anxiety. She states that she's not sure why but it has been better. She has been having dental work for implants and and states that her jawbone is hurting today. She is going to wait and see if it continues before contacting the dentist.No refills or concerns today. Care plan updated and sent to pt and Ricarda Arthur to sign. <April 09, 2025, 11:50 - Loida Nathan LPN> * Loida Nathan LPN - 04/09/2025 11:29 AM EDT Images from the original note were not included. 04/09/2025 Asya Asencio [address] [place] [address] [address] [facility] [address] Problem: Mood/Psychosocial Concerns Goal: Improve Sleep Habits , Problem: Mood/Psychosocial Concerns Goal: Wellness - Improve Social Connections , Problem: Mood/Psychosocial Concerns Goal: Wellness - Improve Emotional Wellbeing , Problem: Anxiety Goal: Reduce overall tension and anxiety Intervention: Discuss how to recognize tension and anxiety and encourage independence and give positive reinforcement for independent behaviors Intervention: Educate on techniques for managing and reducing anxiety and help the patient set realistic goals , and Problem: Anxiety Goal: Verbalize understanding of thoughts, feelings, and behavior components of anxiety and treatment Intervention: Discuss the mental avoidance in worry Intervention: Discuss the importance of recognizing problems before they occur, seeing problems as part of a normal life and review problem solving skills documented in this encounter Plan of Treatment Not on file documented as of this encounter Visit Diagnoses Diagnosis Anxiety- Primary Anxiety state, unspecified Atrial fibrillation with RVR (HCC) documented in this encounter Care Teams Television Journalist Relationship Specialty Start Date End Date Isaac Nazario MD [address] [place] [address] PCP - ACO Reach 01/05/23 Hannah Brian MD [address] [place] [address] PCP - General Family Medicine 11/03/23 documented as of this encounter
--- OUTSIDE RECORDS SUMMARY | 2025-04-10 06:14 | XMS_ITS | Encounter Summary ---
Author Organization [facility] Address [address] [facility] [place] [address] Care Team Providers Care Office Rn Name Role Phone Peggy Whitley MD Unavailable [phone] Peggy Whitley MD Primary Care Provider [phone] Hannah Brian MD Primary Care Provider [phone] Encounter Details Date Type Department Care Team (Late st Contact Info) Description 10/13/2023 Clinisync Result Encounter [...] PM EST Narrative 10/13/2023 12:40 PM EST [address] [address] Cardiology Report Signed Patient: ASYA ULLOA MR#: [id number] : 1950 Acct:[id number] Age/Sex: 73 / F ADM Date: 10/13/23 Loc: CARD Attending Dr: Non-Staff Physician MAntonio Ordering Physician: Physician,Non-Staff Pedro Date of Service: 10/13/23 Procedure(s): CA echo limited Accession Number(s): [id number] cc: PEGGY WHITLEY ; Physician,Non-Staff Pedro Patient Name: ASYA ULLOA MR#: [id number] : 1950 Exam Date: 10/13/2023 Ordering Doctor: [...] Signed By: 10/13/23 1240 DD/ 1239 TD/TT: Driver License Reviewing Officer: Procedure Note Radiology, Radiologist, - 10/13/2023 [address] [place] [id number] Cardiology Report Signed Patient: SIMRAN ULLOA#: [id number] : 8Acct:[id number] Age/Sex: 73 / FADM Date: 10/13/23 Loc: CARD Attending Dr: Non-Staff Physician Pedro Ordering Physician: Conrado ZhaoStaff Pedro Date of Service: 10/13/23 Procedure(s): CA echo limited Accession Number(s): [id number] cc: PEGGY WHITLEY ; Physician,ConradoStaff Pedro Patient Name: ASYA ULLOA MR#: [id number] : 1950 Exam Date: 10/13/2023 Ordering Doctor: [...] M.D. Signed By:10/13/23 1240 DD/ 1239 TD/TT: Driver License Reviewing Officer: us Generic External Data Provider IMG XR PROCEDURES Final Result documented in this encounter Visit Diagnoses Not on filedocumented in this encounter Care Teams Office Rn Relationship Specialty Start Date End Date Peggy Whitley MD [address] [place] [address] PCP - ACO Reach 01/05/23 Peggy Whitley MD [address] [place] [address] PCP - General Family Medicine 02/08/23 11/02/23 Hannah Brian MD [address] [place] [address] PCP - General Family Medicine 11/03/23 documented as of this encounter
--- OUTSIDE RECORDS SUMMARY | 2025-04-10 06:14 | XMS_ITS | Clinical Summary ---
Author Organization [facility] Address [address] [place] [address] Care Team Providers Care Boat Hoist Operator Name Role Phone Irving Sorto MD Unavailable [phone] Johan Mireles MD Unavailable Isaac Nazario MD Primary Care Provider [phone] Allergies Active Allergy Reactions Criticality Noted Date [...] is lower risk 3 05/07/2024 Data from: https://www.neighborhoodatlas.medicine.[facility]/. Last address used for calculation [address] [...] Vaccine (1 - 1-dose 75+ series) 2023 Advance Directive Discussion 08/14/2024 Influenza Vaccine (#1) 2025 Diabetes Screening 02/21/2027 02/22/2024, 0 09/26/2023, 08/31/2023, Additional history exists DTaP,Tdap,Td Vaccine (5 - Td or Tdap) 01/30/2028 01/29/2018, 02/16/2016, 12/14/2009, Additional history exists Colonoscopy Discontinued 02/15/2018, 12/2017, 04/23/2009, Additional history exists Colorectal Cancer Screening Discontinued Mammogram Screening Discontinued 12/05/2022, 12/05/2022, 09/19/2022, Additional history exists CT Colonography Discontinued Cologuard (FIT-DNA) Discontinued Fecal Occult Blood Discontinued Sigmoidoscopy Discontinued Goals Goal Patient Goal Type Associated Problems Recent Progress Patient-Stated? Author Blood Pressure < 130/80 Blood Pressure 149/60( 024 11:13 AM EST) No Benitez Dudley APRN.FOOD SERVICE TRAY ATTENDANT Procedures Procedure Name Priority Date/Time Associated Diagnosis [...] - 8.0 g/dL 09/26/2023 1:52 PM EST [facility] Albumin 4.2 3.9 - 4.9 g/dL 09/26/2023 1:52 PM EST [facility] Calcium, Total 9.6 8.5 - 10.2 mg/dL 09/26/2023 1:52 PM EST [facility] Bilirubin, Total 0.6 0.2 - 1.3 mg/dL 09/26/2023 1:52 PM EST [facility] Alkaline Phosphatase 57 34 - 123 U/L 09/26/2023 1:52 PM EST [facility] AST 29 13 - 35 U/L 09/26/2023 1:52 PM EST [facility] ALT 36 7 - 38 U/L 09/26/2023 1:52 PM EST [facility] Glucose 129(H) 74 - 99 mg/dL 09/26/2023 1:52 PM [facility] Comment: The [place] Diabetes Association (ADA) provides guidance for [...] Standards of Medical Care in Diabetes 2016, [place] [employer] Association. Diabetes Care. 2016.39(Suppl 1). BUN 15 7 - 21 mg/dL 09/26/2023 1:52 PM [facility] Creatinine 0.82 0.58 - 0.96 mg/dL 09/26/2023 1:52 PM [facility] Sodium 139 136 - 144 mmol/L 09/26/2023 1:52 PM [facility] Potassium 4.3 3.7 - 5.1 mmol/L 09/26/2023 1:52 PM [facility] Chloride 100 97 - 105 mmol/L 09/26/2023 1:52 PM [facility] CO2 29 22 - 30 mmol/L 09/26/2023 1:52 PM [facility] Anion Gap 10 9 - 18 mmol/L 09/26/2023 1:52 PM [facility] Estimated Glomerular Filtration Rate 75 >=60 mL/min/1.7 3m 09/26/2023 1:52 PM [facility] Comment:Estimated Glomerular Filtration Rate (eGFR) is [...] us Dick Singh MD LABORATORY Final Result [facility] [address] [facility] [address] [place] [address], [place] * COLONOSCOPY - DIAGNOSTIC (02/15/2018 10:06 AM EDT) Civil Cadd Technician A30 Gastrointestinal Endoscopy Patient Name: Asya Asencio [...] Relevant to Health Maintenance Insurance [address] [place] [address] MEDICARE ANTHEM MEDICARE SUPPLEMENT Advance Directives * Full Code (Latest Code Status on File) Date Activated Date Inactivated Comments 08/24/2023 8:43 PM 08/31/2023 9:57 PM Question Answer Comments Full Code Order Discussed With: Patient Care Teams Boat Hoist Operator Relationship Specialty Start Date End Date Isaac Nazario MD [address] [place] [address] PCP - General Family Medicine 07/24/23 Irving Sorto MD [address] [place] [address] Surgeon Cardiac Surg 07/24/23 Johan Mireles MD [address] [place], [place] [address] [address] Tie Layer Cardiology 07/24/23
--- OUTSIDE RECORDS SUMMARY | 2025-04-10 06:14 | XMS_ITS ---
Author Organization [facility] Address [address] [place] [address] Care Team Providers Care Chauffeur Name Role Phone Isaac Nazario MD Unavailable [phone] Hannah Brian MD Primary Care Provider [phone] Chronic Care Management (CCM) Status:Enrolled (Active) Start date:01/25/2019 Enrollment date:01/25/2019 Overview 10/12/23, 1:51 PM - Loida Nathan LPN- Patient gives verbal consent to be enrolled in CCM Program andunderstands there could be a bill for this service. Case Team Name Relationship Phone Loida Nathan LPN(Responsible Staff) Clinical Advoc ate [phone] Continued Care and Services Coordination
--- OUTSIDE RECORDS SUMMARY | 2025-04-10 06:14 | XMS_ITS | Encounter Summary ---
Author Organization [facility] Address [address] [facility] [place] [address] Care Team Providers Care Agricultural Research Technician Name Role Phone Isaac Nazario MD Unavailable [phone] Isaac Nazario MD Primary Care Provider [phone] Hannah Brian MD Primary Care Provider [phone] Encounter Details Date Type Department Care Team [...] 5:14 PM EST Echocardiography Report: Transthoracic Echo [facility] J[facility] Date of service: 08/23/2023 2:15:32 PM SHIFT MANAGER Ordering physician: MICHELINE BARRIGA Indication: Valvular heart disease Technologist: Dede Coker [facility] Interpreting physician: To Brewer MD [...] * Final (Updated) * * * CC [facility] : [id number]^[employer]^SI^PATRICE D Narrative 08/23/2023 4:55 PM EST Echocardiography Report: Transthoracic Echo [facility] J[facility] Date of service: 08/23/2023 2:15:32 PM SHIFT MANAGER Ordering physician: MICHELINE BARRIGA Indication: Valvular heart disease Technologist: Dede Coker [facility] Interpreting physician: To Brewer MD [...] * * Final * * * CC [facility] : [id number]^[employer]^SI^SUID Procedure Note Radiology, Radiologist, - 08/24/2023 Echocardiography Report: Transthoracic Echo [facility] Date of service: 08/23/2023 2:15:32 PM SHIFT MANAGER Ordering physician: MICHELINE BARRIGA Indication: Valvular heart disease Technologist: Dede Coker [facility] Interpreting physician: To Brewer MD [...] * * Final * * * CC [facility] :[id number]^[employer]^SI^SUID us Generic External Data Provider [employer] Edited Result - Final documented in this encounter Visit Diagnoses Not on filedocumented in this encounter Care Teams Agricultural Research Technician Relationship Specialty Start Date End Date Isaac Nazario MD [address] [place] [id number] PCP - ACO Reach 01/05/23 Isaac Nazario MD [address] [place] [id number] PCP - General Family Medicine 02/08/23 11/02/23 Hannah Brian MD [address] [place] [id number] PCP - General Family Medicine 11/03/23 documented as of this encounter
--- OUTSIDE RECORDS SUMMARY | 2025-04-10 06:16 | XMS_ITS | CCD ---
Author Organization [facility] Care Team Providers Care Electronic Calibration Technician Name Role Phone Peggy Nazario Primary Care Physician Micheline Sorto MD Unavailable Johan Henriquez MD Unavailable Peggy Nazario Primary Care Provider Peggy Nazario MD Unavailable Peggy Nazario MD Primary Care Provider Alea Harley MD Unavailable [phone] Alea Harley MD Unavailable Hannah Brian Primary Care Physician Peggy Nazario Primary Care Provider Johan HENRIQUEZ Admitting Unavailable Johan HENRIQUEZ Consulting Unavailable Johan HENRIQUEZ Attending Unavailable Johan HENRIQUEZ Referring Unavailable Johan HENRIQUEZ Consulting Unavailable Johan HENRIQUEZ Consulting Unavailable Hannah Brian Admitting Unavailable Hannah Brian Attending Unavailable Hannah Brian Referring Unavailable PATTY YAO Admitting Unavailable PATTY YAO Attending Unavailable Nahid SERRATO Attending Unavailable Eb Goff Consulting Unavaila DO Noman Cooper Admitting UnavailMD Eb Walter Consulting Unava ilable bE Goff Consulting Unavaila ble [facility] [place] Consulting Unavailable Koby Masterson Attending Unavailable Micheline BROOKS Attending Unavailable Micheline BROOKS Referring Unavailable Micheline BROOKS Attending Unavailable Jeff Cross Attending Unavailable DO Parveen Ayers SElise Attending Unavailable DO Parveen Ayers SElise Attending Unavailable Koby Masterson Attending Unavailable Jayson Calloway Attending Unavailable NONE, XXXX Referring Unavailable Johan HENRIQUEZ Admitting Unavailable Johan HENRIQUEZ Attending Unavailable PATTY YAO Attending Unavailable PATTY YAO Admitting Unavailable AMINA PETERSEN Admitting Unavailable DAWSON PANIAGUA Attending Unavailable ALEA HARLEY Referring Unavailable NAZARIO, [facility] Primary Care Unavailabl e VASAVADA, RAPHAEL P Referring Unavailable VASAVADA, RAPHAEL P Attending Unavailable NAZARIO, [facility] Primary Care Unavailabl e NAZARIO, [facility] Primary Care Unavailabl e HAMMALEA GAITAN F Referring Unavailable NAZARIO, [facility] Primary Care Unavailabl e NITHYA, MICHELINE Referring Unavailable NAZARIO, [facility] Primary Care Unavailabl e VASAVADA, RAPHAEL P Attending Unavailable SELF Referring Unavailable ALEA HARLEY F Referring Unavailable NAZARIO, [facility] Primary Care Unavailabl e ANA RIVAS Attending Unavailable NAZARIO, [facility] Primary Care Unavailabl e NAZARIO, [facility] Primary Care Unavailabl e NITHYA, MICHELINE Attending Unavailable NITHYA, MICHELINE Referring Unavailable YECENIA GLEZ Admitting Unavailable NAZARIO, [facility] Primary Care Unavailabl e YECENIA GLEZ S Attending Unavailable NAZARIO, [facility] Primary Care Unavailabl e NITHYA, MICHELINE Referring Unavailable NITHYA, MICHELINE Referring Unavailable NAZARIO, [facility] Primary Care Unavailabl e NITHYA, MICHELINE Referring Unavailable PRIETO VILLALBA Attending Unavailable NAZARIO, [facility] Primary Care Unavailabl e NITHYA, MICHELINE Referring Unavailable NAZARIO, [facility] Primary Care Unavailabl e NAZARIO, [facility] Primary Care Unavailabl e VASAVADA, RAPHAEL P Referring Unavailable VASAVADA, RAPHAEL P Attending Unavailable NITHYA, MICHELINE Referring Unavailable ALEA HARLEY F Attending Unavailable NAZARIO, [facility] Primary Care Unavailabl e NAZARIO, [facility] Primary Care Unavailabl e VASAVADA, RAPHAEL P Attending Unavailable SELF Referring Unavailable Snehal MCMAHON, Hannah De Leon Primary Care Provider Peggy Nazario MD Primary Care Provider Hannah Brian MD Primary Care Provider PATTY YAO Referring Unavailable PATTY YAO Referring Unavailable MAXIMILIAN, PATTY Referring Unavailable MOUKARBEL, RAFAEL Attending Unavailable MOUKARBEL, RAFAEL Attending Unavailable MAXIMILIAN, PATTY Referring Unavailable MOUKARBEL, RAFAEL Referring Unavailable ROGER, RADHA Referring Unavailable MOUKARBEL, RAFAEL Referring Unavailable MAXIMILIAN, PATTY Referring Unavailable ROGER, RADHA Referring Unavailable MOUKARBEL, RAFAEL Attending Unavailable CARLOS ALBERTO, MARJ Attending Unavailable CARLOS ALBERTO, MARJ Attending Unavailable MOUKARBEL, RAFAEL Attending Unavailable MAXIMILIAN, PATTY Referring Unavailable MOUKARBEL, RAFAEL Admitting Unavailable MOUKARBEL, RAFAEL Attending Unavailable MAXIMILIAN, PATTY Attending Unavailable MAXIMILIAN, PATTY Admitting Unavailable MAXIMILIAN, PATTY Attending Unavailable FÁTIMA, SHERLYN Patino Attending Unavailable SNEHAL, HANNAH De Leon Attending Unavailable SNEHAL, HANNAH De Leon Attending Unavailable SNEHAL, HANNAH De Leon Attending Unavailable SNEHAL, HANNAH De Leon Attending Unavailable SNEHAL, HANNAH De Leon Attending Unavailable FÁTIMA, SHERLYN Patino Attending Unavailable DEBSTEPHAN GAITAN Attending Unavailable DANAENAMILLERICKIE Morgan Attending Unavailab le SNEHAL, HANNAH De Leon Attending Unavailable Allergies Allergy Classification Reported Allergen(s) Allergy Type Date of Onset Reaction(s) Facility (20 sources) Cephalexin; Translations: [cephalexin] Drug Allergy 3 GI intolerance, Unknown [facility] (20 sources) Egg; Translations: [Eggs] Food allergy Unknown (qualifier value) [facility] (20 sources) Meperidine; Translations: [meperidine] Drug Allergy 0 Syncope (disorder), Other: See Comments [facility] (20 sources) Morphine; Translations: [morphine] Drug Allergy 3 Unknown [facility] (20 sources) Sulfonamides (Antibiotic); Translations: [sulfa drugs] Drug allergy Nausea [facility] (2 sources) Aspirin; Translations: [ASPIRIN] Drug Allergy 0 Other: See Comments [facility] (9 sources) Latex; Translations: [LATEX] Drug Intolerance 3 Rash, Hives [facility] (20 sources) Aluminum aspirin Drug Allergy 0 [facility] (20 sources) Amoxicillin; Translations: [AMOXICILLIN] Drug Allergy 3 Diarrhea [facility] (20 sources) Erythromycin; Translations: [ERYTHROMYCIN] Drug Allergy 3 Unknown [facility] (20 sources) Latex Propensity to adverse reactions 3 Hives, Rash [facility] (20 sources) Meperidine Drug Allergy 3 Unknown [facility] (20 sources) Sulfonamides (Antibiotic) Drug Allergy 3 GI intolerance, Intolerance [facility] (20 sources) WHEAT DEXTRIN; Translations: [WHEAT BRAN] Drug Allergy 3 [facility] (20 sources) WHEAT DEXTRIN Drug Allergy 3 [facility] (5 sources) Eggs Or Egg-Derived Products Drug Allergy 3 [facility] (15 sources) egg extract; Translations: [EGG] Drug Allergy 4 Intolerance, GI Upset [facility] (1 source) Meperidine; Translations: [Demerol HCl] Drug Allergy [facility] (2 sources) Sulfonamides (Antibiotic); Translations: [SULFA (SULFONAMIDE ANTIBIOTICS)] Propensity to adverse reactions to drug (disorder) 3 [facility] (20 sources) empagliflozin; Translations: [EMPAGLIFLOZIN] Drug Allergy 4 Angioedema [facility] Work Phone: (20 sources) Egg-Derived Products Drug Allergy 3 [facility] (20 sources) Amiodarone; Translations: [AMIODARONE] Drug Allergy 4 Nausea And Vomiting [facility] (20 sources) Valsartan; Translations: [VALSARTAN] Propensity to adverse reactions 4 [facility] (1 source) EGG DERIVED; Translations: [EGG DERIVED] Propensity to adverse reactions to drug (disorder) 3 [facility] Repository Medications Current Medications Medication Drug Class(es) Dates Sig (Normalized) Sig (Original) amoxicillin 500 mg / clavulanate 125 mg oral tablet (2 sources) Penicillin-class Antibacterial Start: 07-19-2023 End: 08-02-2023 Augmentin 500 mg-125 mg Tab 1 tab(s), Oral, q24hr for 14 day(s), 14 tab(s), Refill(s) 0, [id number], 165, cm, 07/19/23 15:21:00 EST, Height/Length [...] BID, # 60 tab(s), Refills(s) 0, Pharmacy: [email or web address] #[id number], 165, cm, 07/02/23 21:30:00 EST, Height/Length Dosing, 55.7, kg, 07/02/23 21:30:00 EST, Weight Dosing Start Date: 07/11/23 Status: Ordered Start: 07-11-2023 take 1 tablet by antonio th twice daily Eliquis 5 mg oral tablet 5 mg = 1 tab(s), Oral, BID, # 60 tab(s), Refills(s) 0, [id number], 165, cm, 07/02/23 21:30:00 EST, Height/Length Dosing, 55.7, kg, 07/02/23 21:30:00 EST, Weight Dosing Start Date: 07/11/23 Status: Ordered Start: 07-11-2023 take 1 tablet by antonio th twice daily Eliquis 5 mg oral tablet 5 mg = 1 tab(s), Oral, BID, # 60 tab(s), Refills(s) 0, Pharmacy: [facility] #[id number], 165, cm, 07/02/23 21:30:00 EST, Height/Length Dosing, [...] day(s), # 28 tab(s), Refills(s) 0, Pharmacy: [facility] #[id number], 165, cm, 10/05/23 18:07:00 EST, Height/Length [...] th two times a day with meals. ciprofloxacin 250 mg oral tablet (9 sources) Quinolone Antimicrobial Start: 04-07-20 End: 04-14-20 take 1 tablet by mouth in the morning ciprofloxacin (Cipro) 250 MG tablet Indications: Left lower quadrant pain Take 1 tablet (250 mg) by mouth in the morning and 1 tablet (250 mg) before bedtime. Do all this for 7 days. 14 tablet 04/07/2025 04/14/2025 Active Start: 04-26-2023 Cipro 500 mg T ab 500 mg = 1 tab(s), Oral, As Directed, Patient to take 1 tab the day before procedure and the 2nd tab the day of procedure once completed, # 2 tab(s), Refills(s) 0, Pharmacy: [facility] #[id number], 165, cm, 04/26/23 15:23:00 EDT, Height/Length Dosing, 54.7, kg, 04/26/23 15:23:00 EDT, Weight Dosing Start Date: 04/26/23 Status: Ordered Start: 10-14-2022 take 1 tablet by antonio once daily Cipro 500 mg Tab 500 mg = 1 tab(s), Oral, Daily, Take 1 tablet the day before the procedure and 1 tablet after the procedure, # 2 tab(s), Refills(s) 0, Pharmacy: [facility], 165, cm, 10/03/22 14:34:00 EST, Height/Length Dosing, 54.7, kg, 10/03/22 14:34:00 E... Start Date: 10/14/22 Status: Ordered Start: 03-03-2022 take 1 tablet by antonio once daily Cipro 500 mg Tab 500 mg = 1 tab(s), Oral, As Directed, Take 1 tablet day before procedure, and then 1 tablet day of procedure after procedure, # 2 tab(s), Refills(s) 0, Pharmacy: [facility], 165, cm, 03/03/22 10:04:00 EDT, Height/Length Dosing, 54, kg, 2... Start Date: 03/03/22 Status: Ordered dexamethasone 1 mg/ml / neomycin 3.5 mg/ml / polymyxin b 14694 unt/ml ophthalmic suspension (20 sources) Aminoglycoside Antibacterial, Polymyxin-class Antibacterial, Corticosteroid Start: 10-30-2024 nlbnuctm-ebyjpwgub-bqzHMYYHk sone (Maxitrol) 3.5-11661-4.1 ophthalmic suspension 10/30/2024 Active Start: 10-30-2024 take 1 drop(s) into the eye(s) four times daily bipqeimr-sujayhtch-wypPCYJNprmcf (Maxitr ol) 3.5-41753-6.1 ophthalmic suspension INSTILL 1 DROP into affected eye FOUR TIMES DAILY FOR 14 DAYS 10/30/2024 Active dicyclomine hydrochloride 10 mg oral capsule (1 source) Anticholinergic Start: 07-01-2023 End: 07-08-2023 take 1 capsule by mouth four times daily Bentyl 10 mg Cap 10 mg = 1 cap(s), Oral, QID, X 7 day(s), # 14 cap(s), Refills(s) 0, Pharmacy: [facility] #[id number], 165, cm, 06/30/23 19:37:00 EST, Height/Length Dosing, [...] day (at bedtime), 42.5 gm, Refill(s) 6, [facility], 165.1, cm, 01/28/23 21:34:00 EDT, Height/Length Dosing, 54.5, kg, 01/28/23 21:34:00 EDT, Weight Dosing Start Date: 03/20/23 Status: Ordered Start: 03-03-2022 estradiol 0.1 mg/g vaginal cream 1 gm, Vaginal, MonFri, # 42.5 gm, Refills(s) 6, Pharmacy: [facility], 165, cm, 03/03/22 10:04:00 [...] MonFri, # 42.5 gm, Refills(s) 6, Pharmacy: [facility], 165, cm, 02/23/21 13:24:00 EDT, Height/Length Dosing, 54, kg, 02/23/21 13:24:00 EDT, Weight Dosing Start Date: 02/26/21 Status: Ordered Start: 10-22-2012 End: 08-28-2023 estradiol 0.01 % (0.1 mg/g) vaginal cream Use a pea sized drop on finger, once every other day Tube 10/22/2012 08/28/2023 Discontinued (Course of therapy completed) Comment on above: Use a pea sized drop on finger, once every other day Use 1 g vaginally. estradiol 0.1 mg/g vaginal cream (9 sources) Start: 03-03-2022 estradiol 0.1 mg/g vaginal cream 1 gm, Vaginal, MonFri, # 42.5 gm, Refills(s) 6, Pharmacy: [facility], 165, cm, 03/03/22 10:04:00 EDT, Height/Length Dosing, 54, kg, 03/03/22 10:04:00 EDT, Weight Dosing Start Date: 03/03/22 Status: Ordered Start: 02-26-2021 estradiol 0.1 mg/g vaginal cream 1 gm, Vaginal, MonFri, # 42.5 gm, Refills(s) 6, Pharmacy: [facility], 165, cm, 02/23/21 13:24:00 [...] mg) by mouth at bedtime 30 tablet 04/07/2025 Active lactulose 667 mg/ml oral solution (1 source) Osmotic Laxative Start: 11-22-2023 End: 11-27-2023 take 13.333 g by mouth once daily lactulose 10 g/15 mL Oral Syrup 13.333 gm = 20 mL, Oral, Daily, X 5 day(s), # 100 mL, Refills(s) 0, Pharmacy: [facility] #37, 165, cm, 11/22/23 16:28:00 EDT, Height/Length [...] failure with reduced ejection fraction) ([facility]) take 1/2 tablet by mouth once daily 45 tablet 12/22/2023 Active Comment on above: Take 0.5 tablets by mouth once daily. LORazepam 0.5 mg oral tablet (20 sources) Benzodiazepine Start: 2025 take 1 tablet by mouth every eight hours as needed for anxiety and anxiety and anxiety LORazepam (Ativan) 0.5 MG tablet Indications: Anxiety Take 1 tablet (0.5 mg) by mouth every 8 (eight) hours if needed for anxiety 90 tablet 2025 Active Start: 01-16-2025 take 1 tablet by antonio th every [...] anxiety. Take 0.5 mg by mouth . metroNIDAZOLE 500 mg oral tablet (2 sources) Nitroimidazole Antimicrobial Start: 04-07-20 End: 04-14-20 take 1 tablet by mouth in the morning metroNIDAZOLE (Flagyl) 500 MG tablet Indications: Left lower quadrant pain Take 1 tablet (500 mg) by mouth in the morning and 1 tablet (500 mg) before bedtime. Do all this for 7 days. 14 tablet 04/07/2025 04/14/2025 Active nitrofurantoin, macrocrystals 25 mg / nitrofurantoin, monohydrate 75 mg oral capsule (3 sources) Nitrofuran Antibacterial Start: 08-12-20 End: 08-17-19 take 1 capsule by mouth in the morning nitrofurantoin, macrocrystal-monohyd rate, (Macrobid) 100 MG capsule Indications: Dysuria , [...] failure with reduced ejection fraction) ([facility]) take 1 tablet by mouth every day 90 tablet 12/22/2023 Active Comment on above: Take 1 tablet by antonio once daily. polyethylene glycol 3350 49568 mg powder for oral solution (20 sources) [...] Daily, # 255 gm, Refills(s) 0, Pharmacy: [facility] #[id number], 165, cm, 07/02/23 21:30:00 EST, Height/Length Dosing, [...] for 7 day(s), 5 mL, Refill(s) 0, [facility] #[id number], 165, cm, 12/24/21 17:41:00 EDT, Height/Length Dosing, 54, kg, 12/24/21 17:41:00 EDT, Weight Dosing Start Date: 12/24/21 Stop Date: 12/31/21 Status: Ordered Zofran ODT 4 mg Tab-Dis (12 sources) Start: 3 take 1 tablet by mouth every eight hours Zofran ODT 4 mg Tab-Dis 4 mg = 1 tab(s), Oral, q8hr, # 12 tab(s), Refills(s) 0, Pharmacy: [facility] #[id number], 165, cm, 06/30/23 19:37:00 EST, Height/Length Dosing, [...] 4 days 6 tablet 11/25/2024 12/17/2024 Discontinued digoxin 0.125 mg oral tablet (20 sources) [...] Daily, # 60 tab(s), Refills(s) 0, Pharmacy: [facility] #[id number], 165, cm, 07/02/23 21:30:00 EST, Height/Length Dosing, [...] oral capsule (2 sources) Opioid Agonist Start: 018 End: take 2 capsules by mouth once loperamide (IMODIUM) 2 mg cap(s) Indications: Screening for colon cancer Take 2 capsules by mouth one time only for 1 dose. Take one hour after last bowel movement 2 capsule 0 10/24/2017 08/28/2023 Discontinued (Course of therapy completed) Comment on above: Take 2 capsules by m out one time only for 1 dose. [...] Suprapubic pain; Translations: [Abdominal pain] Onset: 3 Resolved: 4 01-22-2020 Episodic Adjustment disorders (14 sources) Adjustment disorder with [...] Onset: 4 Chronic Congestive heart failure; nonhypertensive (12 sources) Acute systolic heart failure; Translations: [Acute systolic (congestive) heart failure] Onset: 3 Resolved: 4 Chronic Coronary atherosclerosis and other heart disease (3 sources) Coronary atherosclerosis; Translations: [Atherosclerotic heart disease of [place] coronary artery without angina pectoris] Onset: 3 [...] to pass urine; Translations: [Dysuria] Onset: 3 Resolved: 4 07-29-2020 Episodic Heart valve disorders (20 sources) Non-rheumatic mitral regurgitation ; Translations: [Nonrheumatic mitral (valve) insufficiency] Onset: 3 Chronic Hypertension with complications and secondary hypertension (2 sources) Hypertensive heart failure; Translations: [Hypertensive heart disease with heart failure] 04-07-2025 Chronic Inflammation; infection of eye (except that [...] Cough; Translations: [Acute cough] 11-18-2024 Episodic Other lower respiratory disease (2 sources) Dyspnea on exertion; Translations: [Other forms of dyspnea] 04-07-2025 Episodic Other nervous system disorders (1 source) [...] Problem Classification Problem Date Documented Date Episodic/Chronic Intestinal obstruction without hernia (20 sources) Intestinal [...] sources) Long-term 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; Translations: [care home (current) use of 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s] Onset: 01-09-2024 09-26-2023 [...] Test Name Value Interpretation Reference Range Facility Urinalysis macro (dipstick) panel (U)on 04-07-2025 Bilirubin, UA Negative Negative - 4(70) +++ mg/dL [facility] Blood, UA Negative Negative - 50 Pedro/mcL [facility] Clarity, UA Clear [facility] Color, UA Yellow [facility] Glucose, UA Negative Negative - 2000(110) ++++ mg/dL [facility] Ketones, UA Negative Negative - 160(16) ++++ mg/dL [facility] Leukocytes, UA Negative Negative - 500+++ Ghislaine/mcL [facility] Nitrite, UA Negative Negative - Positive [facility] pH, UA 6 5 - 9 [facility] Protein, UA Negative Negative - 2000(20) ++++ mg/dL [facility] Spec Grav, UA 1.005 1 - 1.03 [facility] Urobilinogen, UA 0.2 0.2 - 12 mg/dL [facility] 36on 04-02-2025 36 Patient called vik holliday she forgot to mention to you that she's been having intermittent episodes of SOB while walking on a significant incline on the treadmill at cardiac rehab. Says she's been feeling exhausted after rehab. Said she had an episode last night of huffing and puffing while at home without exertion. 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 I advised patient to refrain from cardiac rehab for now until further workup for tricuspid valve. Florecita and Leonardo from [facility] rehab made aware. [facility] Office Visiton 03-31-2025 Follow-up visit [id number] ElifHarjit I 1950 Date Provider Department Center 03/31/2025 RAFAEL PEDERSEN CEC[facility] Family History Problem Relation Age of Onset Coronary artery disease Mother Diabetes Mother Coronary artery disease Father Family Status - Relation Status Age at Mother Father Sister Brother Alive Level of Service:15818 MO OFFICE/OUTPATIENT ESTABLISHED MOD MDM 30 MIN [facility] 36on 02-12-2025 36 Increased to 6.25mg BID [facility] 36on 02-11-2025 36 Patient called reported that she ran out of her carvedilol, discussed with patient to start on Coreg 6.25 mg bid, I also discussed this plan with 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 Family History Problem Relation Age of Onset Coronary artery disease Mother Diabetes Mother Coronary artery disease Father Family Status - Relation Status Age at Mother Father Sister Brother Alive [facility] Follow-Upon 02-10-2025 Follow-Up [id number] Harjit Asencio I 1950 Provider Department [place] 02/10/2025 RAFAEL PEDERSEN CEC[facility] Family History Problem Relation Age of Onset Coronary artery disease Mother Diabetes Mother Coronary artery disease Father Family Status - Relation Status Age at Mother Father Sister Brother Alive Level of Service:01587 [place] OFFICE/OUTPATIENT ESTABLISHED MOD MDM 30 MIN [facility] 36on 01-25-2025 36 Rafael, would it be ok for her to hold Eliquis for a few days with her recent MitraClip or does she need to continue and maybe reduce the dose? -Maybe we move forward with Watchman for her after you see her on 02/10? Normal [facility] 36 Rafael, would it be ok for her to hold Eliquis for a few days with her recent MitraClip or does she need to continue and maybe reduce the dose? -Maybe we move forward with Watchman for her after you see her on 02/10? Normal [facility] Follow-Upon 01-23-2025 Follow-Up [id number] Harjit Asencio I 1950 F Date Provider Department Center 01/23/2025 MARJ HOWELL [facility] Family History Problem Relation Age of Onset Coronary artery disease Mother Diabetes Mother Coronary artery disease Father Family Status - Relation Status Age at Mother Father Sister Brother Alive Level of Service:05439 MO OFFICE/OUTPATIENT ESTABLISHED MOD MDM 30 MIN Reason for Visit and Comments: Valve Disorder [3372] Atrial Fibrillation [80] Normal [facility] 30on 01-15-2025 30 The patient is Moderately [...] and maintained or improved Outcome: Progressing Normal [facility] BASIC METABOLIC PANELon 06-0 Anion gap [Moles/Vol] 13 mmol/L Normal 7-20 [facility] Comment on above: Performed By: #### L AB15 ####[facility] ([facility])[address] [place] [address] Calcium [Mass/Vol] 8.3 mg/dL Low 8.6-10.3 [facility] Comment on above: Performed By: #### L AB15 ####[facility] ([facility])[address] [place] [address] Chloride [Moles/Vol] 106 mmol/L Normal 98-107 [facility] Comment on above: Performed By: #### L AB15 ####[facility] ([facility])[address] [place] [address] CO2 [Moles/Vol] 19 mmol/L Low 21-31 [facility] Comment on above: Performed By: #### L AB15 ####[facility] ([facility])[address] [place] [address] Creatinine [Mass/Vol] 0.84 mg/dL Normal 0.60-1.20 [facility] Comment on above: Performed By: #### L AB15 ####[facility] ([facility])[address] [place] [address] GLOMERULAR FILTRATION RATE ML/MIN/1.73 SQ M.PREDICTED 72.0 mL/min/1.73m*2 Normal >60.0 [facility] Comment on above: Result Comment: [facility]???s estimated glomerular filtration rate (eGFR) [...] of individuals. Performed By: #### L AB15 ####[facility] ([facility])[address] [place] [address] Glucose [Mass/Vol] 123 mg/dL High 70-100 [facility] Comment on above: Performed By: #### L AB15 ####[facility] ([facility])[address] [place] [address] Potassium [Moles/Vol] 4.7 mmol/L Normal 3.5-5.1 [facility] Comment on above: Performed By: #### L AB15 ####[facility] ([facility])[address] [place] [address] Sodium [Moles/Vol] 133 mmol/L Low 136-145 [facility] Comment on above: Performed By: #### L AB15 ####[facility] ([facility])[address] [place] [address] Urea nitrogen [Mass/Vol] 16 mg/dL Normal 7-25 [facility] Comment on above: Performed By: #### L [id number] ####[facility] ([facility])[address] [place] [address] UREA NITROGEN/CREATININE (MASS RATIO) IN SER/PLAS 19.0 Normal [facility] Comment on above: Performed By: #### L [id number] ####[facility] ([facility])[address] [place] [address] CBCon 01-15-2025 Erythrocyte distribution width (RBC) [Ratio] 13.4 % Normal 11.5-15.0 [facility] Comment on above: Performed By: #### L [id number] #### [facility] ([facility]) [address] [place] [address] ERYTHROCYTE MEAN CORPUSCULAR HEMOGLOBIN CONCENTRATION (G/DL) BY AUTOMATED 30.1 g/dL Low 32.0-35.0 [facility] Comment on above: Performed By: #### L [id number] #### [facility] ([facility]) [address] [place] [address] Hematocrit (Bld) [Volume fraction] 45.2 % High 36.0-45.0 [facility] Comment on above: Performed By: #### L [id number] #### [facility] ([facility]) [address] [place] [address] Hemoglobin (Bld) [Mass/Vol] 13.6 g/dL Normal 12.0-15.0 [facility] Comment on above: Performed By: #### L [id number] #### [facility] ([facility]) [address] [place] [address] MCH (RBC) [Entitic mass] 30.4 pg Normal 27.0-33.0 [facility] Comment on above: Performed By: #### L [id number] #### [facility] ([facility]) [address] [place] [address] MCV (RBC) [Entitic vol] 100.9 fL High 82.0-98.0 [facility] Comment on above: Performed By: #### L [id number] #### [facility] ([facility]) [address] [place] [address] PLATELETS (10*3/UL) IN BLOOD AUTOMATED COUNT 176 10*3/uL Normal 150-400 [facility] Comment on above: Performed By: #### L [id number] #### [facility] ([facility]) [address] [place] [address] RBC (Bld) [#/Vol] 4.48 10*6/uL Normal 3.80-5.00 [facility] Comment on above: Performed By: #### L [id number] #### [facility] ([facility]) [address] [address] WBC (Bld) [#/Vol] 12.19 10*3/uL High 4.00-10.60 [facility] Comment on above: Performed By: #### L [id number] #### [facility] ([facility]) [address] [address] DSon 01-15-2025 DS Admission Admitted 01/14/2025 for [...] antibiotics), Valsartan, and Wheat bran Hospital Course Harjit Asencio is a 74-year-old female with a [...] use. Cl (more content not included)... Normal [facility] 30on 01-14-2025 30 The patient is Moderately [...] and behaviors that affect risk of falls [place] fall precautions as indicated by assessment Educate [...] and prevent overall improvement and discharge Normal [facility] 30 The patient is Moderately Unstable - [...] and maintained or improved Outcome: Progressing Normal [facility] BASIC METABOLIC PANELon 06-0 Anion gap [Moles/Vol] 9 mmol/L Normal 7-20 [facility] Comment on above: Performed By: #### L [id number] #### [facility] ([facility]) [address] [place] [address] Calcium [Mass/Vol] 8.5 mg/dL Low 8.6-10.3 [facility] Comment on above: Performed By: #### L [id number] #### [facility] ([facility]) [address] [place] [address] Chloride [Moles/Vol] 107 mmol/L Normal 98-107 [facility] Comment on above: Performed By: #### L [id number] #### [facility] ([facility]) [address] [place] [address] CO2 [Moles/Vol] 26 mmol/L Normal 21-31 [facility] Comment on above: Performed By: #### L [id number] #### [facility] ([facility]) [address] [place] [address] Creatinine [Mass/Vol] 0.80 mg/dL Normal 0.60-1.20 [facility] Comment on above: Performed By: #### L [id number] #### [facility] ([facility]) [address] [place] [address] GLOMERULAR FILTRATION RATE ML/MIN/1.73 SQ M.PREDICTED 76.3 mL/min/1.73m*2 Normal >60.0 [facility] Comment on above: Result Comment: [facility]???s estimated glomerular filtration rate (eGFR) [...] individuals. Performed By: #### L [id number] #### [facility] ([facility]) [address] [place] [address] Glucose [Mass/Vol] 97 mg/dL Normal 70-100 [facility] Comment on above: Performed By: #### L [id number] #### [facility] ([facility]) [address] [place] [address] Potassium [Moles/Vol] 3.9 mmol/L Normal 3.5-5.1 [facility] Comment on above: Performed By: #### L [id number] #### [facility] ([facility]) [address] [place] [address] Sodium [Moles/Vol] 138 mmol/L Normal 136-145 [facility] Comment on above: Performed By: #### L [id number] #### [facility] ([facility]) [address] [place] [address] Urea nitrogen [Mass/Vol] 11 mg/dL Normal 7-25 [facility] Comment on above: Performed By: #### L [id number] #### [facility] ([facility]) [address] [place] [address] UREA NITROGEN/CREATININE (MASS RATIO) IN SER/PLAS 13.8 Normal [facility] Comment on above: Performed By: #### L [id number] #### [facility] ([facility]) [address] [place] [address] CBC WITH AUTO DIFFERENTIALon 01-14-2025 Basophils (Bld) [#/Vol] 0.03 10*3/uL Normal 0.00-0.20 [facility] Comment on above: Performed By: #### L [id number] #### [facility] ([facility]) [address] [place] [address] Basophils/100 WBC (Bld) 0.6 % Normal 0.0-1.0 [facility] Comment on above: Performed By: #### L [id number] #### [facility] ([facility]) [address] [place] [address] Eosinophils (Bld) [#/Vol] 0.07 10*3/uL Normal 0.00-0.50 [facility] Comment on above: Performed By: #### L [id number] #### [facility] ([facility]) [address] [place] [address] Eosinophils/100 WBC (Bld) 1.4 % Normal 0.0-6.0 [facility] Comment on above: Performed By: #### L [id number] #### [facility] ([facility]) [address] [place] [address] Erythrocyte distribution width (RBC) [Ratio] 13.4 % Normal 11.5-15.0 [facility] Comment on above: Performed By: #### L [id number] #### [facility] ([facility]) [address] [address] ERYTHROCYTE MEAN CORPUSCULAR HEMOGLOBIN CONCENTRATION (G/DL) BY AUTOMATED 33.0 g/dL Normal 32.0-35.0 [facility] Comment on above: Performed By: #### L [id number] #### [facility] ([facility]) [address] [place] [address] Hematocrit (Bld) [Volume fraction] 35.8 % Low 36.0-45.0 [facility] Comment on above: Performed By: #### L [id number] #### [facility] ([facility]) [address] [place] [address] Hemoglobin (Bld) [Mass/Vol] 11.8 g/dL Low 12.0-15.0 [facility] Comment on above: Performed By: #### L [id number] #### [facility] ([facility]) [address] [place] [address] Immature granulocytes (Bld) [#/Vol] 0.02 10*3/uL Normal 0.00-0.20 [facility] Comment on above: Performed By: #### L [id number] #### [facility] ([facility]) [address] [place] [address] Immature granulocytes/100 WBC (Bld) 0.4 % Normal 0.0-1.0 [facility] Comment on above: Performed By: #### L [id number] #### [facility] ([facility]) [address] [place] [address] Lymphocytes (Bld) [#/Vol] 1.34 10*3/uL Normal 1.20-4.00 [facility] Comment on above: Performed By: #### L [id number] #### [facility] ([facility]) [address] [place] [address] Lymphocytes/100 WBC (Bld) 27.7 % Normal 20.0-45.0 [facility] Comment on above: Performed By: #### L [id number] #### [facility] ([facility]) [address] [place] [address] MCH (RBC) [Entitic mass] 31.1 pg Normal 27.0-33.0 [facility] Comment on above: Performed By: #### L [id number] #### [facility] ([facility]) [address] [place] [address] MCV (RBC) [Entitic vol] 94.2 fL Normal 82.0-98.0 [facility] Comment on above: Performed By: #### L [id number] #### [facility] ([facility]) [address] [place] [address] Monocytes (Bld) [#/Vol] 0.40 10*3/uL Normal 0.10-1.00 [facility] Comment on above: Performed By: #### L [id number] #### [facility] ([facility]) [address] [place] [address] Monocytes/100 WBC (Bld) 8.3 % Normal 5.0-12.0 [facility] Comment on above: Performed By: #### L [id number] #### [facility] ([facility]) [address] [place] [address] Neutrophils (Bld) [#/Vol] 2.98 10*3/uL Normal 1.60-7.60 [facility] Comment on above: Performed By: #### L [id number] #### [facility] ([facility]) [address] [place] [address] Neutrophils/100 WBC (Bld) 61.6 % Normal 40.0-72.0 [facility] Comment on above: Performed By: #### L [id number] #### [facility] ([facility]) [address] [place] [address] NRBC (PER 100 WBCS) BY AUTOMATED COUNT 0.0 % Normal 0 [facility] Comment on above: Performed By: #### L [id number] #### [facility] ([facility]) [address] [place] [address] PLATELETS (10*3/UL) IN BLOOD AUTOMATED COUNT 178 10*3/uL Normal 150-400 [facility] Comment on above: Performed By: #### L [id number] #### [facility] ([facility]) [address] [place] [address] RBC (Bld) [#/Vol] 3.80 10*6/uL Normal 3.80-5.00 [facility] Comment on above: Performed By: #### L [id number] #### [facility] ([facility]) [address] [place] [address] WBC (Bld) [#/Vol] 4.84 10*3/uL Normal 4.00-10.60 [facility] Comment on above: Performed By: #### L [id number] #### [facility] ([facility]) [address] [place] [address] HPon 01-14-2025 H&P reviewed. The patient was examined and there are no changes to the H&P. Normal [facility] POCT GLUCOSE METER UNSOLICIT ED RESULTSon 01-14-2025 Glucose [Mass/Vol] 92 mg/dL Normal 70-105 [facility] Comment on above: Order Comment: Waive d Testing in the ED is performed under the ED CLIA certificate #[id number]. Result Comment: [email or web address] [email or web address] Performed By: #### L [id number] #### [facility] ([facility]) [address] [place] [address] PROTIME-INRon 01-14-2025 INR IN PPP BY COAGULATION ASSAY 1.08 Normal 0.90-1.10 [facility] Comment on above: Result Comment: ACCC P [...] 1995;[id number]. Performed By: #### L [id number] #### [facility]) [address] [place] [address] PROTHROMBIN TIME (PT) IN PPP BY COAGULATION ASSAY 14.0 Seconds Normal 12.3-14.8 [facility] Comment on above: Performed By: #### L [id number] #### [facility]) [address] [place] [address] TYPE AND SCREENon 01-14-2025 AB SCREEN Negative Normal [facility] Comment on above: Performed By: #### L [id number] #### [facility] , ABO group Nom (Bld) O Normal [facility] Comment on above: Performed By: #### L [id number] #### [facility] , RH TYPE IN BLOOD Positive Normal [facility] Comment on above: Performed By: #### L [id number] #### [facility] , Orders Onlyon 01-13-2025 Orders Only [id number] Claire Asencioyce I 1950 F Date Provider Department Center 01/13/2025 USMAN LOPEZ [facility] Medical C Family History Problem Relation Age of Onset Coronary artery disease Mother Diabetes Mother Coronary artery disease Father Family Status - Relation Status Age at Mother Father Sister Brother Alive [facility] Orders Onlyon 01-09-2025 Orders Only [id number] ElifHarjit I 1950 F Date Provider Department Center 01/09/2025 BIANCA MIGUEL [facility] Family History Problem Relation Age of Onset Coronary artery disease Mother Diabetes Mother Coronary artery disease Father Family Status - Relation Status Age at Mother Father Sister Brother Alive [facility] Orders Onlyon 01-08-2025 Orders Only [id number] ElifHarjit I 1950 F Date Provider Department Center 01/08/2025 RADHA CHAVEZ [facility] Family History Problem Relation Age of Onset Coronary artery disease Mother Diabetes Mother Coronary artery disease Father Family Status - Relation Status Age at Mother Father Sister Brother Alive [facility] Documentationon 12-25-2024 Documentation [id number] ElifHarjit I 1950 F Date Provider Department Center 12/25/2024 GABE [place] [facility] Family History Problem Relation Age of Onset Coronary artery disease Mother Diabetes Mother Coronary artery disease Father Family Status - Relation Status Age at Mother Father Sister Brother Alive [facility] Telephoneon 12-24-2024 Telephone [id number] Harjit Asencio I 1950 F Date Provider Department [place] 12/24/2024 BIANCA MIGUEL [facility] Family History Problem Relation Age of Onset Coronary artery disease Mother Diabetes Mother Coronary artery disease Father Family Status - Relation Status Age at Mother Father Sister Brother Alive Normal [facility] 12-23-2024 [facility]iology - [facility] Subjective Harjit Asencio is a 74 [...] insomnia Urethral stricture Urinary frequency Urinary urgency care home 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 Paroxysmal atrial fibrillation [...] At her recent visit with cardiology at [facility] on 09/26/2023 valsartan was stopped and low-dose lisinopril 5 mg once daily was added. The plan was to add Jardiance. There is note of her to being evaluated by CT surgery Dr. [place] regarding candidacy for cardiac surgery and she was deemed high risk. She was also evaluated at [facility] cardiothoracic surgery. Initial workup for her mitral valve disease was started. Spironolactone was changed to half tablet twice a day instead of 1 tablet once a day. She was also recommended to start taking digoxin at night instead of the morning. At visit with ok on 10/16/2023 I increased her carvedilol to [...] on 12/01/2023 I referred her to Patty Yao for consideration of further management of her atrial fibrillation to include A-fib ablation. Dr. Patty Yao decided to proceed with placement of [...] are negativ (more content not included)... Normal [facility] Office Visiton 12-23-2024 Follow-up visit [id number] Harjit Asencio I 1950 F Date Provider Department Center 12/23/2024 Mulu-BRANDT RAFAEL [facility] Family History Problem Relation Age of Onset Coronary artery disease Mother Diabetes Mother Coronary artery disease Father Family Status - Relation Status Age at Mother Father Sister Brother Alive Level of Service:24400 [place] OFFICE/OUTPATIENT ESTABLISHED HIGH MDM 40 MIN Normal [facility] Urinalysis macro (dipstick) panel (U)on 12-17-2024 Bilirubin, UA Negative Negative - 4(70) +++ mg/dL [facility] Blood, UA Positive Negative - 50 Pedro/mcL [facility] Clarity, UA Clear [facility] Color, UA Yellow [facility] Glucose, UA Negative Negative - 1999(110) ++++ mg/dL [facility] Interpretation and review of laboratory results Abnormal [facility] Ketones, UA Negative Negative - 160(16) ++++ mg/dL [facility] Leukocytes, UA Negative Negative - 500+++ Ghislaine/mcL [facility] Nitrite, UA Negative Negative - Positive [facility] pH, UA 6 5 - 9 [facility] Protein, UA Negative Negative - 2000(20) ++++ mg/dL [facility] Spec Grav, UA 1.005 1 - 1.03 [facility] Urobilinogen, UA 0.2 0.2 - 12 mg/dL [facility] ANESon 11-29-2024 ANES - Attestation signed by Gabe Levine MD at 11/29/2024 11:53 AM By using [...] an additional personal documentation from me. Patient: Harjit Asencio Procedure Information Date/Time: 11/29/24 0900 Procedure: TRANSESOPHAGEAL ECHO (HAROON) Location: [facility] Vascular Lab Clinical information reviewed: Allergies Meds OB Status Physical Exam Airway Mallampati: III Cardiovascular Dental Pulmonary Abdominal Anesthesia Plan ASA 3 other (Conscious sedation) intravenous induction Anesthetic plan and risks discussed with patient. Use of blood products discussed with patient who consented to blood products. Plan discussed with attending and fellow. Additional Equipment Requests Normal [facility] BASIC METABOLIC PANELon 11-12 Anion gap [Moles/Vol] 9 mmol/L Normal 7-20 [facility] Comment on above: Performed By: #### L [id number] #### [facility] ([facility]) [address] [place] [address] Calcium [Mass/Vol] 9.1 mg/dL Normal 8.6-10.3 [facility] Comment on above: Performed By: #### L [id number] #### [facility] ([facility]) [address] [place] [address] Chloride [Moles/Vol] 102 mmol/L Normal 98-107 [facility] Comment on above: Performed By: #### L [id number] #### [facility] ([facility]) [address] [place] [address] CO2 [Moles/Vol] 32 mmol/L High 21-31 [facility] Comment on above: Performed By: #### L [id number] #### [facility] ([facility]) [address] [place] [address] Creatinine [Mass/Vol] 0.85 mg/dL Normal 0.60-1.20 [facility] Comment on above: Performed By: #### L [id number] #### [facility] ([facility]) [address] [place] [address] GLOMERULAR FILTRATION RATE ML/MIN/1.73 SQ M.PREDICTED 71.0 mL/min/1.73m*2 Normal >60.0 [facility] Comment on above: Result Comment: [facility]???s estimated glomerular filtration rate (eGFR) [...] individuals. Performed By: #### L [id number] #### [facility] ([facility]) [address] [place] [address] Glucose [Mass/Vol] 96 mg/dL Normal 70-100 [facility] Comment on above: Performed By: #### L [id number] #### [facility] ([facility]) [address] [place] [address] Potassium [Moles/Vol] 4.9 mmol/L Normal 3.5-5.1 [facility] Comment on above: Performed By: #### L [id number] #### [facility] ([facility]) [address] [place] [address] Sodium [Moles/Vol] 138 mmol/L Normal 136-145 [facility] Comment on above: Performed By: #### L [id number] #### [facility] ([facility]) [address] [place] [address] Urea nitrogen [Mass/Vol] 14 mg/dL Normal 7-25 [facility] Comment on above: Performed By: #### L [id number] #### [facility] ([facility]) [address] [place] [address] UREA NITROGEN/CREATININE (MASS RATIO) IN SER/PLAS 16.5 Normal [facility] Comment on above: Performed By: #### L [id number] #### [facility] ([facility]) [address] [place] [address] CBCon 11-29-2024 Erythrocyte distribution width (RBC) [Ratio] 13.3 % Normal 11.5-15.0 [facility] Comment on above: Performed By: #### L [id number] #### [facility] ([facility]) [address] [place] [address] ERYTHROCYTE MEAN CORPUSCULAR HEMOGLOBIN CONCENTRATION (G/DL) BY AUTOMATED 32.1 g/dL Normal 32.0-35.0 [facility] Comment on above: Performed By: #### L [id number] #### [facility] ([facility]) [address] [place] [address] Hematocrit (Bld) [Volume fraction] 41.8 % Normal 36.0-45.0 [facility] Comment on above: Performed By: #### L [id number] #### [facility] ([facility]) [address] [place] [address] Hemoglobin (Bld) [Mass/Vol] 13.4 g/dL Normal 12.0-15.0 [facility] Comment on above: Performed By: #### L [id number] #### [facility] ([facility]) [address] [place] [address] MCH (RBC) [Entitic mass] 30.0 pg Normal 27.0-33.0 [facility] Comment on above: Performed By: #### L [id number] #### [facility] ([facility]) [address] [place] [address] MCV (RBC) [Entitic vol] 93.7 fL Normal 82.0-98.0 [facility] Comment on above: Performed By: #### L [id number] #### [facility] ([facility]) [address] [place] [address] PLATELETS (10*3/UL) IN BLOOD AUTOMATED COUNT 264 10*3/uL Normal 150-400 [facility] Comment on above: Performed By: #### L [id number] #### [facility] ([facility]) [address] [place] [address] RBC (Bld) [#/Vol] 4.46 10*6/uL Normal 3.80-5.00 [facility] Comment on above: Performed By: #### L [id number] #### [facility] ([facility]) [address] [place] [address] WBC (Bld) [#/Vol] 9.08 10*3/uL Normal 4.00-10.60 [facility] Comment on above: Performed By: #### L [id number] #### [facility] ([facility]) [address] [place] [address] HPon 11-29-2024 - Attestation signed by Gabe Levine MD at 11/29/2024 11:52 AM By using [...] documentation from me. History Of Present Illness Harjit Asencio is a 74 y.o. female with [...] DATE OF PROCEDURE: 06/10/2024 PERFORMING PHYSICIAN: Dr. Patty Yao CONSENT: Patient NAME OF THE PROCEDURE: AV node ablation LOCATION: EP Lab INDICATIONS FOR PROCEDURE: 1. Atrial fibrillation with RVR. PROCEDURAL SEDATION: Versed and Fentanyl. Moderate sedation was administered by the sedation nurse under my supervision and noted in the CVL log. Intraprocedural f (more content not included)... Normal [facility] NURSNOTEon 11-29-2024 NURSNOTE Bedside swallow stud y completed and passed. Normal [facility] NURSNOTE RN educated pt on d/ c [...] of unit with all of belongings. Normal [facility] Telephoneon 11-22-2024 Telephone [id number] ElifHarjit Ruiz 1950 F Date Provider Department Center 11/22/2024 YAEL [facility] Family History Problem Relation Age of Onset Coronary artery disease Mother Diabetes Mother Coronary artery disease Father Family Status - Relation Status Age at Mother Father Normal [facility] Bacteria identified Cx Nom ( U)on 11-21-2024 Appearance (U) Adequate [facility] Internal identifier for Provider [id number] [facility] Specimen source Nom (Unsp spec) URINE, CLEAN CATCH [facility] STATUS FINAL [facility] Performing Organization Information Site ID: QPT Name: [employer] [facility] Address: [address] [place] [address] Director: Ab Vincent MD [facility] CULTURE, URINE, ROUTINEon CULTURE, URINE, ROUTINE SEE NOTE Normal [facility] Comment on above: Result Comment: CULTURE, URINE, ROUTINE Micro Number: [id number] Test Status: Final Specimen Source: Urine, clean catch Specimen Quality: Adequate Result: No Growth Performed By: #### 3 95 #### [employer] [place] [address] Alterations Sewer: Ab Vincent MD Urine cultureon 11-21-2024 Bacteria identified Cx Nom (U) SEE NOTE [facility] Comment on above: No Growth Urinalysis macro (dipstick) panel (U)on 11-18-2024 Bilirubin, UA Negative Negative - 4(70) +++ mg/dL [facility] Blood, UA Positive Negative - 50 Pedro/mcL [facility] Clarity, UA Clear [facility] Color, UA Yellow [facility] Glucose, UA Negative Negative - 2000(110) ++++ mg/dL [facility] Interpretation and review of laboratory results Abnormal [facility] Ketones, UA Negative Negative - 160(16) ++++ mg/dL [facility] Leukocytes, UA Trace Negative - 500+++ Ghislaine/mcL [facility] Nitrite, UA Negative Negative - Positive [facility] pH, UA 6.5 5 - 9 [facility] Protein, UA Negative Negative - 1999(20) ++++ mg/dL [facility] Spec Grav, UA 1.01 1 - 1.03 [facility] Urobilinogen, UA 0.2 0.2 - 12 mg/dL [facility] Office Visiton 10-22-2024 Follow-up visit [id number] Harjit Asencio I 1950 F Date Provider Department Center 10/22/2024 PATTY DIANE Family History Problem Relation Age of Onset Coronary artery disease Mother Diabetes Mother Coronary artery disease Father Family Status - Relation Status Age at Mother Father Level of Service:91922 [place] OFFICE/OUTPATIENT ESTABLISHED LOW MDM 20 MIN Normal [facility] Urinalysis macro (dipstick) panel (U)on 08-12-2024 Bilirubin, UA Negative Negative - 4(70) +++ mg/dL [facility] Blood, UA Positive Negative - 50 Pedro/mcL [facility] Clarity, UA Clear [facility] Color, UA Yellow [facility] Glucose, UA Negative Negative - 1999(110) ++++ mg/dL [facility] Interpretation and review of laboratory results Abnormal [facility] Ketones, UA Negative Negative - 160(16) ++++ mg/dL [facility] Leukocytes, UA Negative Negative - 500+++ Ghislaine/mcL [facility] Nitrite, UA Negative Negative - Positive [facility] pH, UA 6 5 - 9 [facility] Protein, UA Negative Negative - 1999(20) ++++ mg/dL [facility] Spec Grav, UA 1.005 1 - 1.03 [facility] Urobilinogen, UA 0.2 0.2 - 12 mg/dL [facility] COMPREHENSIVE METABOLIC PANE [place]em[place] 07-04-2024 Albumin [Mass/Vol] 4.2 g/dL Normal 3.6-5.1 [facility] Comment on above: Order Comment: FASTI NG:NO FASTING: NO Performed By: #### 1 0231 #### [facility] [place] [address] Alterations Sewer: Ab Vincent MD Albumin/Globulin [Mass ratio] 1.8 {ratio} Normal 1.0-2.5 [facility] Comment on above: Order Comment: FASTI NG:NO FASTING: NO Performed By: #### 1 0231 #### [facility] [place] [address] Alterations Sewer: Ab Vincent MD ALP [Catalytic activity/Vol] 75 U/L Normal 37-153 [facility] Comment on above: Order Comment: FASTI NG:NO FASTING: NO Performed By: #### 1 0231 #### [facility] [place] [address] Alterations Sewer: Ab Vincent MD ALT [Catalytic activity/Vol] 27 U/L Normal 6-29 [facility] Comment on above: Order Comment: FASTI NG:NO FASTING: NO Performed By: #### 1 0231 #### [facility] [place] [address] Alterations Sewer: Ab Vincent MD AST [Catalytic activity/Vol] 27 U/L Normal 10-35 [facility] Comment on above: Order Comment: FASTI NG:NO FASTING: NO Performed By: #### 1 0231 #### [facility] [place] [address] Alterations Sewer: Ab Vincent MD Bilirubin [Mass/Vol] 0.6 mg/dL Normal 0.2-1.2 [facility] Comment on above: Order Comment: FASTI NG:NO FASTING: NO Performed By: #### 1 0231 #### [facility] [place] [address] Alterations Sewer: Ab Vincent MD BUN/CREATININE RATIO SEE NOTE: Normal 6-22 [facility] Comment on above: Order Comment: FASTI NG:NO FASTING: NO Result Comment: Not Reported: BUN and Creatinine are within reference range. Performed By: #### 1 0231 #### [facility] [address], [address] [place] [address] Alterations Sewer: Ab Vincent MD Calcium [Mass/Vol] 9.2 mg/dL Normal 8.6-10.4 [facility] Comment on above: Order Comment: FASTI NG:NO FASTING: NO Performed By: #### 1 0231 #### [facility] [address], [address] [place] [address] Alterations Sewer: Ab Vincent MD Chloride [Moles/Vol] 104 mmol/L Normal 98-110 [facility] t [facility] Comment on above: Order Comment: FASTI NG:NO FASTING: NO Performed By: #### 1 0231 #### [facility] [place] [address] Alterations Sewer: Ab Vincent MD CO2 [Moles/Vol] 27 mmol/L Normal 20-32 [facility] Comment on above: Order Comment: FASTI NG:NO FASTING: NO Performed By: #### 1 0231 #### [facility] [place] [address] Alterations Sewer: Ab Vincent MD Creatinine [Mass/Vol] 0.87 mg/dL Normal 0.60-1.00 [facility] Comment on above: Order Comment: FASTI NG:NO FASTING: NO Performed By: #### 1 0231 #### [facility] [place] [address] Alterations Sewer: Ab Vincent MD GFR/1.73 sq M.predicted among non-blacks MDRD (S/P/Bld) [Vol rate/Area] 69 mL/min/{1.73_m2} Normal > OR = 60 [facility] Comment on above: Order Comment: FASTI NG:NO FASTING: NO Performed By: #### 1 0231 #### [facility] [place] [address] Alterations Sewer: Ab Vincent MD Globulin (S) [Mass/Vol] 2.3 g/dL Normal 1.9-3.7 [facility] Comment on above: Order Comment: FASTI NG:NO FASTING: NO Performed By: #### 1 0231 #### [facility] [place] [address] Alterations Sewer: Ab Vincent MD Glucose [Mass/Vol] 94 mg/dL Normal 65-139 [facility] Comment on above: Order Comment: FASTI NG:NO FASTING: NO Result Comment: Non-fasting reference interval Performed By: #### 1 0231 #### [facility] [place] [address] Alterations Sewer: Ab Vincent MD Potassium [Moles/Vol] 4.6 mmol/L Normal 3.5-5.[address] [facility] Comment on above: Order Comment: FASTI NG:NO FASTING: NO Performed By: #### 1 0231 #### [facility] [place] [address] Alterations Sewer: Ab Vincent MD Protein [Mass/Vol] 6.5 g/dL Normal 6.1-8.1 [facility] Comment on above: Order Comment: FASTI NG:NO FASTING: NO Performed By: #### 1 0231 #### [facility] [place] [address] Alterations Sewer: Ab Vincent MD Sodium [Moles/Vol] 139 mmol/L Normal 135-146 [facility] Comment on above: Order Comment: FASTI NG:NO FASTING: NO Performed By: #### 1 0231 #### [facility] [place] [address] Alterations Sewer: Ab Vincent MD Urea nitrogen [Mass/Vol] 12 mg/dL Normal 7-25 [facility] Comment on above: Order Comment: FASTI NG:NO FASTING: NO Performed By: #### 1 0231 #### [facility] [place] [address] Alterations Sewer: Ab Vincent MD CULTURE, URINE, ROUTINEon CULTURE, URINE, ROUTINE SEE NOTE Normal [facility] Comment on above: Order Comment: FASTI NG:UNKNOWN FASTING: UNKNOWN Result Comment: CULTURE, URINE, ROUTINE Micro Number: [id number] Test Status: Final Specimen Source: Urine Specimen Quality: Adequate Result: No Growth Performed By: #### 3 95 #### [facility] [address] [facility], [address] [place] [address] Alterations Sewer: Ab Vincent MD 37on 07-02-2024 37 *You can take famotidine (Pepcid) 10mg daily as needed for heartburn/acid reflux. If you are still having symptoms, you can take tums or rolaids as needed. -Let cardiology know if chest pain persists Normal [facility] Office Visiton 07-02-2024 Follow-up visit [id number] Harjit Asencio I 1950 F Date Provider Department Center 07/02/2024 MARJ HOWELL CECILE [facility] Family History Problem Relation Age of Onset Coronary artery disease Mother Diabetes Mother Coronary artery disease Father Family Status - Relation Status Age at Mother Father Level of Service:78325 [place] OFFICE/OUTPATIENT ESTABLISHED MOD MDM 30 MIN Reason for Visit and Comments: Atrial Fibrillation [80] Palpitations [211111] Congestive Heart Failure [127] Valve Disorder [3372] Normal [facility] Urinalysis macro (dipstick) panel (U)on 07-01-2024 Bilirubin, UA Negative Negative - 4(70) +++ mg/dL [facility] Blood, UA Negative Negative - 50 Pedro/mcL [facility] Clarity, UA Clear [facility] Color, UA Light Yellow [facility] Glucose, UA Negative Negative - 1999(110) ++++ mg/dL [facility] Interpretation and review of laboratory results Normal [facility] Ketones, UA Negative Negative - 160(16) ++++ mg/dL [facility] Leukocytes, UA Negative Negative - 500+++ Ghislaine/mcL [facility] Nitrite, UA Negative Negative - Positive [facility] pH, UA 6 5 - 9 [facility] Protein, UA Negative Negative - 2000(20) ++++ mg/dL [facility] Spec Grav, UA 1.01 1 - 1.03 [facility] Urobilinogen, UA 0.2 0.2 - 12 mg/dL [facility] CNOVon 06-27-2024 CNOV Normal [facility] HPon 06-10-2024 HP [place] Electrophysiology Consult Note [place] Cardiology - [facility] Reason for visit: Afib+ CMP 06/10/24 Pt here kalyan AVN ablation. 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 year [...] MR and subsequently had a visit with [facility] where evaluation was being done for surgical correction of mitral valve but was noted to have high risk and hence deferred. She also had an evaluation for the same at [place] [facility] surgery and thereafter had seen in [...] on file Intimate Partner Violence: Unknown (10/05/2023) [place] Safety & Environment Fear of Current or [...] clear, no (more content not included)... Normal [facility] Orders Onlyon 06-05-2024 Orders Only [id number] ElifHarjit I 1950 F Date Provider Department Center 06/05/2024 PATTY DIANE [facility] Family History Problem Relation Age of Onset Coronary artery disease Mother Diabetes Mother Coronary artery disease Father Family Status - Relation Status Age at Mother Father Normal [facility] BMPon 06-03-2024 Anion gap [Moles/Vol] 9 mmol/L Normal 6-16 [facility] Comment on above: Performed By: #### 2 [id number] #### [facility] [address] [place] [address] Calcium [Mass/Vol] 9.1 mg/dL Normal 8.9-11.1 [facility] Comment on above: Performed By: #### 2 804811 #### [facility] [address] [place] [address] Chloride [Moles/Vol] 103 mmol/L Normal 101-111 [facility] Comment on above: Performed By: #### 2 [id number] #### [facility] [address] [place] [address] CO2 [Moles/Vol] 29 mmol/L Normal 21-31 [facility] Comment on above: Performed By: #### 2 237652 #### [facility] [address] [place] [address] Creatinine [Mass/Vol] 0.8 mg/dL Normal 0.5-1.3 [facility] Comment on above: Performed By: #### 2 952359 #### [facility] [address] [place] [address] Glucose [Mass/Vol] 89 mg/dL Normal 55-199 [facility] Comment on above: Performed By: #### 2 079649 #### [facility] [address] [place] [address] Potassium [Moles/Vol] 4.3 mmol/L Normal 3.5-5.3 [facility] Comment on above: Performed By: #### 2 164984 #### [facility] [address] [place] [address] Sodium [Moles/Vol] 137 mmol/L Normal 135-145 [facility] Comment on above: Performed By: #### 2 900854 #### [facility] [address] [place] [address] Urea nitrogen [Mass/Vol] 12 mg/dL Normal 5-21 [facility] Comment on above: Performed By: #### 2 809877 #### [facility] [address] [place] [address] Urea nitrogen/Creatinine [Mass ratio] 15 No Units Normal 10-20 [facility] Comment on above: Performed By: #### 2 999898 #### [facility] [address] [place] [address] CBC w/Indiceson 06-03-2024 Erythrocyte distribution width (RBC) [Ratio] 14.0 % Normal 10.9-14.2 [facility] Comment on above: Performed By: #### 2 518244 #### [facility] [address] [place] [address] Hematocrit (Bld) [Volume fraction] 40.6 % Normal 34.0-46.0 [facility] Comment on above: Performed By: #### 2 691245 #### [facility] [address] [place] [address] Hemoglobin (Bld) [Mass/Vol] 13.7 g/dL Normal 12.0-16.0 [facility] Comment on above: Performed By: #### 2 358271 #### [facility] [address] [place] [address] MCH (RBC) [Entitic mass] 31.0 pg Normal 27.0-34.0 [facility] Comment on above: Performed By: #### 2 477902 #### [facility] [address] [place] [address] MCHC (RBC) [Mass/Vol] 33.6 g/dL Normal 31.4-36.0 [facility] Comment on above: Performed By: #### 2 988310 #### [facility] [address] [place] [address] MCV (RBC) [Entitic vol] 92.2 fL Normal 80.0-100.0 [facility] Comment on above: Performed By: #### 2 484918 #### [facility] [address] [place] [address] Platelet mean volume (Bld) [Entitic vol] 8.3 fL Normal 6.4-10.8 [facility] Comment on above: Performed By: #### 2 763557 #### [facility] [address] [place] [address] Platelets (Bld) [#/Vol] 198.0 E9/L Normal 150.0-500.0 [facility] Comment on above: Performed By: #### 2 070204 #### [facility] [address] [place] [address] RBC (Bld) [#/Vol] 4.4 E12/L Normal 4.3-5.9 [facility] Comment on above: Performed By: #### 2 883701 #### [facility] [address] [place] [address] RBC size Nom (Bld) NORMAL Invalid Interpretation Code [facility] Comment on above: Performed By: #### 2 142564 #### [facility] [address] [place] [address] WBC corrected for nucl RBC Auto (Bld) [#/Vol] 7.0 E9/L Normal 4.0-11.0 [facility] Comment on above: Performed By: #### 2 991382 #### [facility] [address] [place] [address] CHEMISTRYOrdered By: SYSTEM SYSTEM on 06-03-2024 Anion [...] Remisol Heme Orders Onlyon 06-03-2024 Orders Only [id number] Harjit Asencio I 1950 Provider Department Center 06/03/2024 YAEL BRADFORD [facility] Family History Problem Relation Age of Onset Coronary artery disease Mother Diabetes Mother Coronary artery disease Father Family Status - Relation Status Age at Mother Father Normal [facility] eGFRon 06-03-2024 eGFR 76 mL/min/1.73 m2 Normal >=59 [facility] Comment on above: Performed By: #### 1 [id number] #### [facility] [address] [place] [address] Office Visiton 05-27-2024 Follow-up visit [id number] Harjit Asencio I 1950 Provider Department Center 05/27/2024 RAFAEL PEDERSEN [facility] Family History Problem Relation Age of Onset Coronary artery disease Mother Diabetes Mother Coronary artery disease Father Family Status - Relation Status Age at Mother Father Level of Service:48084 [place] OFFICE/OUTPATIENT ESTABLISHED MOD MDM 30 MIN Normal [facility] CNOVon 05-07-2024 CNOV Normal [facility] CNPTOUTREACHon 05-07-2024 CNPTOUTREACH Normal [facility] URINALYSIS, REFLEX MICROSCOP ICon 05-07-2024 Bilirubin Ql (U) Negative Negative [facility] Clarity (Unsp spec) Clear Clear [facility] Color (U) Yellow Yellow [facility] Glucose Test strip (U) [Mass/Vol] Negative Negative [facility] Hemoglobin Ql (U) Negative Negative [facility] Interpretation and review of laboratory results Normal [facility] Ketones Ql (U) Negative Negative [facility] Leukocyte esterase Test strip Ql (U) Negative Negative [facility] Nitrite Ql (U) Negative Negative [facility] pH (U) 6.0 [pH] NINF - 8.5 [facility] Protein (U) [Mass/Vol] Negative Negative [facility] Specific gravity (U) [Rel density] 1.007 1.005 - 1.030 [facility] Urobilinogen Ql (U) 0.2 EU/dL 0.2-1.0 EU/dL [facility] Bilirubin Ql (U) Negative Normal Negative [facility] Comment on above: Order Comment: Speci men Type: URINE SPECIMENOrdering Facility: [facility] Address: [address] [place] [address] Performed By: #### L [id number] ####[facility] [id number] [place] [address] [place] Clarity (Unsp spec) Clear Normal Clear [facility] Comment on above: Order Comment: Speci men Type: URINE SPECIMENOrdering Facility: [facility] Address: [address] [place] [address] Performed By: #### L [id number] ####[facility] [id number] [place] [address] [place] Color (U) Yellow Normal Yellow [facility] Comment on above: Order Comment: Speci men Type: URINE SPECIMENOrdering Facility: [facility] Address: [address] [place] [address] Performed By: #### L [id number] ####[facility] LABCL[facility] [id number] [place] [address] [place] Glucose Test strip (U) [Mass/Vol] Negative Normal Negative [facility] Comment on above: Order Comment: Speci men Type: URINE SPECIMENOrdering Facility: [facility] Address: [address] [place] [address] Performed By: #### L [id number] ####[facility] LABCL[facility] [id number] [place] [address] [place] Hemoglobin Ql (U) Negative Normal Negative [facility] Comment on above: Order Comment: Speci men Type: URINE SPECIMENOrdering Facility: [facility] Address: [address] [place] [address] Performed By: #### L [id number] ####[facility]CL[facility] [id number] [place] [address] [place] Ketones Ql (U) Negative Normal Negative [facility] Comment on above: Order Comment: Speci men Type: URINE SPECIMENOrdering Facility: [facility] Address: [address] [place] [address] Performed By: #### L [id number] ####[facility] [id number] [place] [address] [place] Leukocyte esterase Test strip Ql (U) Negative Normal Negative [facility] Comment on above: Order Comment: Speci men Type: URINE SPECIMENOrdering Facility: [facility] Address: [address] [place] [address] Performed By: #### L [id number] ####[facility]CLIA [id number] [place] [address] [place] Nitrite Ql (U) Negative Normal Negative [facility] Comment on above: Order Comment: Speci men Type: URINE SPECIMENOrdering Facility: [facility] Address: [address] [place] [address] Performed By: #### L [id number] ####[facility]CL[facility] [id number] [place] [address] [place] pH (U) 6.0 [pH] Normal <8.5 [facility] Comment on above: Order Comment: Speci men Type: URINE SPECIMENOrdering Facility: [facility] Address: [address] [place] [address] Performed By: #### L [id number] ####[facility] LABIA [id number] [place] [id number] [place] Protein (U) [Mass/Vol] Negative Normal Negative [facility] Comment on above: Order Comment: Speci men Type: URINE SPECIMENOrdering Facility: [facility] Address: [address] [place] [address] Performed By: #### L [id number] ####[facility] LABIA [id number] [place] [address] [place] Specific gravity (U) [Rel density] 1.007 Normal 1.005-1.030 [facility] Comment on above: Order Comment: Speci men Type: URINE SPECIMENOrdering Facility: [facility] Address: [address] [place] [address] Performed By: #### L [id number] ####[facility] [id number] [place] [address] [place] Urobilinogen Ql (U) 0.2 EU/dL Normal 0.2-1.0 EU/dL [facility] Comment on above: Order Comment: Speci men Type: URINE SPECIMENOrdering Facility: [facility] Address: [address] [place] [address] Performed By: #### L [id number] ####[facility] LABIA [id number] [place] [id number] [place] 36on 05-06-2024 36 Pt informed and she will restart eliquis day after injections Normal [facility] C Urineon 11-24-2023 Bacteria identified Cx Nom (U) Microbiology PROCEDURE: Urine Culture [R1] SOURCE: U CleanCatch BODY SITE: COLLECTED DATE/TIME: 11/22/2023 16:36 EDT RECEIVED DATE/TIME: 11/22/2023 17:31 EDT START DATE/TIME: 11/22/2023 17:31 EDT FREE TEXT SOURCE: Edel Zhou PA-C. Edel Zhou PA-C. FINAL REPORTS Final Report [] Verified Date/Time: 11/24/2023 09:32 EDT 1,000 cfu/ml Mixed skin contaminants Performing Locations R1: This test was performed at: [facility], [address] [place] [address], [address] , , [facility] Comment on above: Performed By: #### 2 [id number], [id number], [id number], [id number], [id number], [id number] #### [facility] [address] [place] [address] BB Draw & Holdon 11-23-2023 BB D&H Sample drawn for Blood Ba [facility] Comment on above: Performed By: #### 1 [id number] #### [facility] [address] [place] [address] Abdomen/Pelvis w/ Contras ton 11-23-2023 CT [...] Oral contrast amount in ml's: [address] [facility] ED Note-Physicianon 11-23-19 ED Note-Physician Basic [...] imaging. No significant abnormalities. Patient is very rcny-npk-ldupm with her symptoms and now states to [...] day(s), # 100 mL, Refills(s) 0, Pharmacy: [facility], 165, cm, 11/22/23 16:28:00 EDT, Height/Length Dosing, 49.8, kg, 11/22/23 16:28:00 EDT, Weight Dosing Orders: lactulose, 30 gram = 45 mL, Syrup, Oral, Once, Stop date 04/10/24 20:40:00 EDT, STAT, Start date 11/22/23 20:40:00 [...] days 11/25/[address] [place] [address]- Additional Instructions: Patient Education Constipation, Adult, Cpyt-ss-Cjis Attestation I performed a substantive part of [...] EC T (more content not included)... Normal [facility] Comment on above: Result Comment: Elec tronically Signed By: Edel Zhou PA-C\.br\Date and Time Signed: 11/22/23 20:45 EDT\.br\Electronically Co-Signed By: Jayson Calloway DO\.br\Date and Time Co-Signed: 11/23/23 07:15 EDT CBC w/ Auto Diffon 4 Basophils/100 WBC (Bld) 1.1 % Normal 0.0-2.0 [facility] Comment on above: Performed By: #### 1 [id number] #### [facility] [address] [place] [address] Basophils/Leukocytes Auto (Bld) [Pure # fraction] 0.1 E9/L Normal 0.0-0.2 [facility] Comment on above: Performed By: #### 1 [id number] #### [facility] [address] [place] [address] Eosinophils (Bld) [#/Vol] 0.0 E9/L Normal 0.0-0.5 [facility] Comment on above: Performed By: #### 1 [id number] #### [facility] [address] [place] [address] Eosinophils/100 WBC (Bld) 0.2 % Normal 0.0-8.0 [facility] Comment on above: Performed By: #### 1 [id number] #### [facility] [address] [place] [address] Erythrocyte distribution width (RBC) [Ratio] 14.7 % High 10.9-14.2 [facility] Comment on above: Performed By: #### 1 [id number] #### [facility] [address] [place] [address] Hematocrit (Bld) [Volume fraction] 42.0 % Normal 34.0-46.0 [facility] Comment on above: Performed By: #### 1 [id number] #### [facility] [address] [place] [address] Hemoglobin (Bld) [Mass/Vol] 13.9 g/dL Normal 12.0-16.0 [facility] Comment on above: Performed By: #### 1 [id number] #### [facility] [address] [place] [address] Lymphocytes (Bld) [#/Vol] 2.1 E9/L Normal 1.0-4.0 [facility] Comment on above: Performed By: #### 1 [id number] #### [facility] [address] [place] [address] Lymphocytes/100 WBC (Bld) 25.6 % Normal 14.0-50.0 [facility] Comment on above: Performed By: #### 1 [id number] #### [facility] [address] [place] [address] MCH (RBC) [Entitic mass] 30.3 pg Normal 27.0-34.0 [facility] Comment on above: Performed By: #### 1 [id number] #### [facility] [address] [place] [address] MCHC (RBC) [Mass/Vol] 33.1 g/dL Normal 31.4-36.0 [facility] Comment on above: Performed By: #### 1 [id number] #### [facility] [address] [place] [address] MCV (RBC) [Entitic vol] 91.5 fL Normal 80.0-100.0 [facility] Comment on above: Performed By: #### 1 [id number] #### [facility] [address] [place] [address] Monocytes (Bld) [#/Vol] 0.5 E9/L Normal 0.2-1.0 [facility] Comment on above: Performed By: #### 1 [id number] #### [facility] [address] [place] [address] Neutrophils (Bld) [#/Vol] 5.5 E9/L Normal 2.0-7.5 [facility] Comment on above: Performed By: #### 1 [id number] #### [facility] [address] [place] [address] Neutrophils/100 WBC (Bld) 66.8 % Normal 36.0-75.0 [facility] Comment on above: Performed By: #### 1 [id number] #### [facility] [address] [place] [address] Platelet mean volume (Bld) [Entitic vol] 8.3 fL Normal 6.4-10.8 [facility] Comment on above: Performed By: #### 1 [id number] #### [facility] [address] [place] [address] Platelets (Bld) [#/Vol] 250.0 E9/L Normal 150.0-500.0 [facility] Comment on above: Performed By: #### 1 [id number] #### [facility] [address] [place] [address] RBC (Bld) [#/Vol] 4.6 E12/L Normal 4.3-5.9 [facility] Comment on above: Performed By: #### 1 [id number] #### [facility] [address] [place] [address] WBC corrected for nucl RBC Auto (Bld) [#/Vol] 8.3 E9/L Normal 4.0-11.0 [facility] Comment on above: Performed By: #### 1 [id number] #### [facility] [address] [place] [address] CHEMISTRYOrdered By: SYSTEM SYSTEM on 11-22-2023 Albumin [...] Sensitivity Troponin I Instructions For Use, Marlys [place], March 2018) Urea nitrogen [Mass/Vol] 20 mg/dL Normal 5 - 21 mg/dL Remisol Chem Urea nitrogen/Creatinine [Mass ratio] 20 mg/mg Normal 10 - 20 Remisol Chem CMPon 11-22-2023 Albumin [Mass/Vol] 4.6 g/dL Normal 3.3-5.0 [facility] Comment on above: Performed By: #### 1 [id number] #### [facility] [address] [place] [address] Albumin/Globulin (S) [Mass conc ratio] 1.8 Normal 1.1-2.2 [facility] Comment on above: Performed By: #### 1 [id number] #### [facility] [address] [place] [address] ALP [Catalytic activity/Vol] 90 Int._Unit/L Normal 21-98 [facility] Comment on above: Performed By: #### 1 [id number] #### [facility] [address] [place] [address] ALT No additional P-5'-P [Catalytic activity/Vol] 41 Int._Unit/L Normal 6-46 [facility] Comment on above: Performed By: #### 1 [id number] #### [facility] [address] [place] [address] Anion gap [Moles/Vol] 13 mmol/L Normal 6-16 [facility] Comment on above: Performed By: #### 1 [id number] #### [facility] [address] [place] [address] AST [Catalytic activity/Vol] 30 Int._Unit/L Normal 5-43 [facility] Comment on above: Performed By: #### 1 [id number] #### [facility] [address] [place] [address] Bilirubin [Mass/Vol] 1.0 mg/dL Normal 0.0-1.1 [facility] Comment on above: Performed By: #### 1 [id number] #### [facility] [address] [place] [address] Calcium [Mass/Vol] 10.0 mg/dL Normal 8.9-11.1 [facility] Comment on above: Performed By: #### 1 [id number] #### [facility] [address] [place] [address] Chloride [Moles/Vol] 99 mmol/L Low 101-111 [facility] Comment on above: Performed By: #### 1 [id number] #### [facility] [address] [place] [address] CO2 [Moles/Vol] 27 mmol/L Normal 21-31 [facility] Comment on above: Performed By: #### 1 [id number] #### [facility] [address] [place] [address] Creatinine [Mass/Vol] 1.0 mg/dL Normal 0.5-1.3 [facility] Comment on above: Performed By: #### 1 [id number] #### [facility] [address] [place] [address] Globulin (S) [Mass/Vol] 2.6 g/dL Normal 1.4-4.0 [facility] Comment on above: Performed By: #### 1 3742410 #### [facility] [address] [place] [address] Glucose [Mass/Vol] 114 mg/dL Normal 55-199 [facility] Comment on above: Performed By: #### 1 3492709 #### [facility] [address] [place] [address] Potassium [Moles/Vol] 4.2 mmol/L Normal 3.5-5.3 [facility] Comment on above: Performed By: #### 1 7054165 #### [facility] [address] [place] [address] Protein [Mass/Vol] 7.2 g/dL Normal 6.0-7.8 [facility] Comment on above: Performed By: #### 1 0456075 #### [facility] [address] [place] [address] Sodium [Moles/Vol] 135 mmol/L Normal 135-145 [facility] Comment on above: Performed By: #### 1 [id number] #### [facility] [address] [place] [address] Urea nitrogen [Mass/Vol] 20 mg/dL Normal 5-21 [facility] Comment on above: Performed By: #### 1 [id number] #### [facility] [address] [place] [address] Urea nitrogen/Creatinine [Mass ratio] 20 No Units Normal 10-20 [facility] Comment on above: Performed By: #### 1 [id number] #### [facility] [address] [place] [address] COAGULATIONOrdered By: Elena Dinero on 11-22-2023 aPTT Coag (PPP) [Time] 41.3 s High 25.1 - 36.5 second(s) [facility] [place] Comment on [...] the same coagulation reagent and instrumentation as [facility] [place]. Currently there are no coagulation studies available worldwide for children to 14 days, and no normal ranges. Heparin therapeutic range (represented by Anti-Factor Xa activity of 0.2 - 0.4 U/mL) corresponds to PTT of 56.6 - 109.0 sec. INR Coag (PPP) [Relative time] 1.37 {INR} Invalid Interpretation Code [facility] [place] Comment on above: Interpretive Data: I NR results are specifically intended to assess patients stabilized on long-term Anticoagulation therapy suggested INR s Less Intensive Anticoagulation 2.0 3.0 Conventional Range 3.0 4.5 PT Coag (PPP) [Time] 15.4 s High 9.4 - 1 2.5 second(s) [facility] [place] [facility] Comment on [...] the same coagulation reagent and instrumentation as [facility] [place]. Currently there are no coagulation studies available worldwide for children to 14 days, and no normal ranges. Consent for Treatmenton 11-12 Consent for Treatment [id number]#[address] [facility] Discharge Instructionson Discharge Instructions [id number]# 1.00TIFF Normal [facility] ED Clinical Summaryon 2023 ED Clinical Summary [place] [id number] ED Clinical Summary Person Information Name: HARJIT ASENCIO I Patricia/[facility] Age: 73 Years : 1950 Sex: Female Language: Bahraini PCP: Snehal MCMAHON, Hannah De Leon Marital [...] 11/22/2023 20:57:39 11/22/2023 20:57:39 11/22/2023 20:57:39 ADDRESS: [address] [place] [address] [address] [place] [id number] PHYS DOC NOTES: MEDICAL INFORMATION: Prescriptions Given: New Medications [employer] [address], [address] [place] [id number], [phone] lactulose (lactulose 10 g/15 mL Oral Syrup) [...] 0. PATIENT EDUCATION INFORMATION: Instructions: Constipation, Adult, Mshh-nr-Cnvh Follow up: With: Address: When: Snehal MCMAHON, Hannah [facility] [address] [place] [id number] In 3 days 11/25/2023 DIAGNOSIS: 1:Constipation Normal [facility] ED Patient Education Noteon 11-22-2023 ED [...] in fat and sugar, such as: ? Croatian fries. ? Hamburgers. ? Cookies. ? Candy. ? Soda. ? Drink enough fluid to keep your pee (urine) pale yellow. General instructions ? Exercise regularly or as told by your doctor. Try to do 150 minutes of exercise each week. ? Go to the restroom when you feel like you need to poop. Do not hold it in. ? Take adeq-aix-ctvnazq and prescription medicines only as told by [...] your pee (urine) pale yellow. ? Take grgw-sso-btzdmll and prescription medicines only as told by your doctor. These include any fiber supplements. This information is not intended to replace advice given to you by your health care provider. Make sure you discuss any questions you have with your health care provider. Document Revised: 06/17/2020 Document Reviewed: 06/17/2020 [employer] Patient Education ? [address] [employer] [facility] ED Patient Summaryon 024 ED Patient Summary [address] [address] Patient Discharge Instructions Person Information Name: HARJIT ASENCIO I Age: 73 Years Arrival Date: 11/22/2023 16:16:41 Discharge Diagnosis: 1:Constipation Primary Care Physician: Hannah Brian MD Provider Information Primary Provider: Jayson Calloway DO Advanced Bar Roller:None The exam and treatment you received in the Emergency Department were for an urgent problem and are not intended as complete care. It is important that you follow up with a doctor, nurse practitioner, or physician?s emergency medicine physician assistant for ongoing care. If your symptoms become worse or you do not improve as expected and you are unable to reach your usual health care provider, you should return to the Emergency Department. We are available 24 hours a day. HARJIT ASENCIO I has been given the following list of patient education materials, prescriptions and follow-up instructions: Follow-up Instructions: With: Address: When: Hannah [place] [place] [address] In 3 days 11/25/2023 In the event that this physician does not participate in your insurance network, please consult with your insurance company to find a nearby participating provider. Patient Education Materials: Constipation, Adult, Vzkm-ud-Fdtq A MESSAGE TO ALL PATIENTS REGARDING OPIOIDS PRESCRIPTION OPIOIDS: WHAT YOU NEED TO KNOW Prescription opioids can be used to help relieve lacfhqym-bz-sresze pain and are often prescribed following a [...] be struggling with addiction, tell your health direct care worker and ask for guidance or call [facility]?S National Helpline at 1-431-809-TAEN. v Source: US Department of Health and Human S (more content not included)... Normal [facility] HEMATOLOGYOrdered By: SYSTEM SYSTEM on 11-22-2023 [...] 11-22-2023 Magnesium [Mass/Vol] 2.0 mg/dL Normal 1.3-2.4 [facility] Comment on above: Performed By: #### 1 [id number] #### [facility] [address] [place] [address] PT & PTTon 11-22-2023 aPTT Coag (PPP) [Time] 41.3 second(s) High 25.1-36.5 [facility] Comment on above: Result Comment: Para [...] the same coagulation reagent and instrumentation as [facility] [place] Currently there are no coagulation studies available worldwide for children to 14 days, and no normal ranges. Heparin therapeutic range (represented by Anti-Factor Xa activity of 0.2 - 0.4 U/mL) corresponds to PTT of 56.6 - 109.0 sec. Performed By: #### 1 [id number] #### [facility] [address] [place] [address] INR Coag (PPP) [Relative time] 1.37 {INR} Invalid Interpretation Code [facility] Comment on above: Result Comment: INR results are specifically intended to assess patients stabilized on long-term Anticoagulation therapy suggested INR?s ?Less Intensive Anticoagulation? 2.0 ? 3.0 Conventional Range 3.0 ? 4.5 Performed By: #### 1 [id number] #### [facility] [address] [place] [address] PT Coag (PPP) [Time] 15.4 second(s) High 9.4-12.5 [facility] Comment on above: Result Comment: 15 [...] the same coagulation reagent and instrumentation as [facility] [place]. Currently there are no coagulation studies available worldwide for children to 14 days, and no normal ranges. Performed By: #### 1 [id number] #### [facility] [address] [place] [address] RAD - Preliminary Cat Scan R eporton 11-22-2023 RAD - Preliminary Cat Scan Report [id number]# 1.00TIFF Normal [facility] Troponin 0 Hr.on 11-22-2023 Troponin 12.30 pg/mL Normal 10.10-27.10 [facility] Comment on above: Result Comment: The 95% CI (Confidence Interval) PPV (Positive Predictive Value) for myocardial infarction in females is 38 pg/mL, in males 51 pg/mL. The results should be used in conjunction with clinical conditions of myocardial infarction. (Access High Sensitivity Troponin I Instructions For Use, Marlys [place], March 2018) Performed By: #### 1 [id number] #### [facility] [address] [place] [address] UA with Cult Rflxon 11-22-19 24 Bilirubin Ql (U) Negative Normal Negative [facility] Comment on above: Performed By: #### 2 733564, 33133043, 2725793, 7881237, 3455216, 4166498 #### [facility] [address] [place] [address] Clarity (U) Clear Normal Clear [facility] Comment on above: Performed By: #### 2 277579, 99945312, 6762647, 1214579, 8365342, 2421187 #### [facility] [address] [place] [id number] Color (U) Colorless Abnormal Yellow [facility] Comment on above: Result Comment: Micr oscopic readings are only performed on those samples that meet specific criteria set forth by [facility]. Performed By: #### 2 668631, 47398705, 4490871, 4349246, 8830760, 3157931 #### [facility] [address] [place] [address] Epithelial cells.squamous Auto (Urine sed) [#/Area] 0-2 Normal 0-2 [facility] Comment on above: Performed By: #### 2 960497, 99932812, 0961403, 1608380, 4992020, 9240474 #### [facility] [address] [place] [address] Glucose Ql (U) Negative Normal Negative [facility] Comment on above: Performed By: #### 2 430367, 34023185, 8218638, 8521659, 7826611, 4118106 #### [facility] [address] [place] [address] Hemoglobin Auto test strip (U) [Mass/Vol] Negative Normal Negative [facility] Comment on above: Performed By: #### 2 389828, 06291611, 5699567, 9804820, 6114178, 5304791 #### [facility] [address] [place] [address] Ketones Auto test strip Ql (U) Negative Normal Negative [facility] Comment on above: Performed By: #### 2 615160, 11669119, 6577864, 0023389, 3681211, 1909179 #### [facility] [address] [place] [address] Leukocyte esterase Auto test strip Ql (U) 75 Ghislaine/uL Abnormal Negative [facility] Comment on above: Performed By: #### 2 442438, 91611417, 2766819, 4275057, 7878475, 9283586 #### [facility] [address] [place] [address] Mucus Auto Ql (U) Negative Normal Negative [facility] Comment on above: Performed By: #### 2 285154, 78510122, 0636568, 6183481, 0084464, 1704728 #### [facility] [address] [place] [address] Nitrite Auto test strip Ql (U) Negative Normal Negative [facility] Comment on above: Performed By: #### 2 804119, 51573249, 7196289, 4224532, 8539881, 0163446 #### [facility] [address] [place] [address] pH (U) 7.0 [pH] Invalid Interpretation Code 5.0-9.0 [facility] Comment on above: Performed By: #### 2 987479, 75028677, 5006480, 6116545, 9835182, 0284739 #### [facility] [address] [place] [address] Protein Ql (U) Negative Normal Negative [facility] Comment on above: Performed By: #### 2 092926, 50306675, 3133062, 8950782, 7476690, 4603078 #### [facility] [address] [place] [address] RBC Ql (U) 0-3 Normal 0-3 [facility] Comment on above: Performed By: #### 2 227471, 70550413, 3731554, 6255552, 0110247, 3712613 #### [facility] [address] [place] [address] Specific gravity (U) [Rel density] 1.004 Invalid Interpretation Code 1.005-1.030 [facility] Comment on above: Performed By: #### 2 254335, 48752304, 4206292, 7631584, 1552528, 5198886 #### [facility] [address] [place] [address] Urobilinogen (U) [Mass/Vol] Negative Normal Negative [facility] Comment on above: Performed By: #### 2 471037, 35283761, 1692499, 2321218, 9491969, 5031362 #### [facility] [address] [place] [address] WBC Auto (Urine sed) [#/Area] 0-5 Normal 0-5 [facility] Comment on above: Performed By: #### 2 530859, 74732929, 2681345, 8953440, 3846632, 7244367 #### [facility] [address] [place], [place] [address] Type of Urine collection method Clean Catch Normal [facility] Comment on above: Performed By: #### 2 589726, 77055454, 8883574, 7796263, 7364708, 8333480 #### [facility] [address] [place], [place] [address] URINALYSISOrdered By: SYSTEM SYSTEM on 11-22-2023 Bilirubin Ql (U) Negative Normal Negativemg/ d L FT UA Auto SS Clarity (U) Clear (11/22/23 4:36 PM) Normal Clear FT UA Auto SS Color (U) Colorless 1 *ABN* (11/22/23 4:36 PM) Invalid Interpretation Code Yellow FT UA Auto SS Comment on above: Interpretive Data: M icroscopic readings are only performed on those samples that meet specific criteria set forth by [facility]. Epithelial cells.squamous Auto (Urine sed) [#/Area] 0-2 graded/HPF Normal 0-2graded/HP F FT UA Auto SS Glucose Ql (U) Negative [...] Ql (U) Negative Normal Negativegr ad ed/LPF FT UA Auto SS Nitrite Auto test strip Ql (U) Negative Normal Negativemg/d L [facility] UA Auto SS pH (U) 7.0 *NA* (11/22/23 4:36 PM) Invalid Interpretation Code 5.0 - 9.0 [facility] [place]A Auto SS Protein Ql (U) Negative Normal Negativemg/d L [facility] UA Auto SS RBC Ql (U) 0-3 graded/HPF Normal 0-3graded/HP F [facility] UA Auto SS Specific gravity (U) [Rel density] 1.004 *NA* (11/22/23 4:36 PM) Invalid Interpretation Code 1.005 - 1.030 [facility] [place] UA Auto SS Urobilinogen (U) [Mass/Vol] Negative Normal Negativemg/d L [facility] [place] UA Auto SS WBC Auto (Urine sed) [#/Area] 0-5 graded/HPF Normal 0-5graded/HP F FT UA Auto SS URINALYSISOrdered By: Sandhya Xavier on 11-22-2023 UA Spec Desc Clean Catch (11/22/23 4:36 PM) Normal [facility] [place] UA Auto SS XR Abdomen 1 Viewon [...] mGy = na DAP = na Normal [facility] eGFRon 11-22-2023 eGFR 58 mL/min/1.73 m2 Low >=59 [facility] Comment on above: Order Comment: Order added by Discern Expert. Performed By: #### 1 [id number] #### [facility] [address] [place] [address] Consent for Treatmenton Consent for Treatment [id number] .00TIFF [facility] US Abdomen, Limitedon 2023 US Abdomen, Limited [...] Johan Nava MD Transcribed by: ARAVIND Technologist: IZABEL Doty [facility] Physician Orderon 11-09-2023 Physician Order [id number] .00TIFF Normal [facility] CNOVon 10-16-2023 CNOV Normal [facility] CNPNon 10-16-2023 CNPN Normal [facility] UA DIP, URINE (POC)on 2023 BILIRUBIN UA (POCT) Negative Negative Titi [facility] CLARITY UA (POCT) Clear [facility] COLOR UA (POCT) Yellow [facility] GLUCOSE UA (POCT) Negative Negative mg/dL [facility] Hemoglobin Ql (U) Trace-lysed Abnormal Negative [facility] KETONE UA (POCT) Negative Negative mg/dL [facility] LEUKOCYTES UA (POCT) Large Abnormal Negative [facility] NITRITE UA (POCT) Negative Negative [facility] PH UA (POCT) 6.0 4.5 - 8.0 [facility] Protein Ql (U) Negative Negative mg/dL [facility] SPECIFIC GRAVITY UA (POCT) 1.010 1.005 - 1.030 [facility] UROBILINOGEN UA (POCT) 0.2 E.U./dL Normal E.U./dL [facility] ED Note-Physicianon 10-06-19 24 ED Note-Physician Basic Information Time Seen: Nica [...] as she thinks she is back in [place]. Review of Systems Constitutional: Denies weight loss, [...] Constipation, unspecified) (more content not included)... Normal [facility] Comment on above: Result Comment: Elec tronically Signed By: Nica Knox PA-C\.br\Date and Time Signed: 10/05/23 21:57 EST\.br\Electronically Co-Signed By: Koby Masterson DO.br\Date and Time Co-Signed: 10/06/23 00:54 EST Consent for Treatmenton 09-15 Consent for Treatment [id number] [facility] Discharge Instructionson Discharge Instructions [id number]# 1.00TIFF Normal [facility] ED Clinical Summaryon 2023 ED Clinical Summary [address] [address] ED Clinical Summary Person Information Name: HARJIT ASENCIO I [place] Age: 73 Years : 1950 Sex: Female Language: Bahraini PCP: Peggy Nazario MD Marital Status: Visit [...] 10/05/2023 21:56:34 10/05/2023 21:56:34 10/05/2023 21:56:34 ADDRESS: [address] [place] [address] [address] [facility] [id number] PHYS DOC NOTES: MEDICAL INFORMATION: Prescriptions Given: Medications to Continue Taking That Have Changed [employer] [address], [address] [place], [place] [id number], [phone] START: carvedilol (carvedilol 3.125 mg Tab) 1 [...] 0. PATIENT EDUCATION INFORMATION: Instructions: Constipation, Adult, Gzrk-nk-Jyhx; Gastroesophageal Reflux Disease, Adult, Jelf-jb-Jrhp; Abdominal Pain, Adult, Uqvw-lu-Sagg Follow up: With: Address: When: Johan HENRIQUEZ [address] [place] [phone] [employer] (1) In 3 days 10/08/2023 With: Address: When: Peggy Nazario [address] [place] [address] [employer] (1) In 3 days DIAGNOSIS: 1:Constipation Normal [facility] ED Patient Education Noteon 10-05-2023 ED [...] in fat and sugar, such as: ? Croatian fries. ? Hamburgers. ? Cookies. ? Candy. ? Soda. ? Drink enough fluid to keep your pee (urine) pale yellow. General instructions ? Exercise regularly or as told by your doctor. Try to do 150 minutes of exercise each week. ? Go to the restroom when you feel like you need to poop. Do not hold it in. ? Take fnnv-joc-iptogog and prescription medicines only as told by [...] your pee (urine) pale yellow. ? Take wcyf-yqa-bgrqreh and prescription medicines only as told by your doctor. These include any fiber supplements. This information is not intended to replace advice given to you by your health care provider. Make sure you discuss any questions you have with your health care provider. Document Revised: 06/17/2020 Document Reviewed: 06/17/2020 [employer] Patient Education ? 2022 [employer]. Gastroesophageal Reflux Disease, Adult Gastroesophageal reflux (ZUNILDA) [...] ? Hors (more content not included)... Normal [facility] ED Patient Summaryon 024 ED Patient Summary [place] [id number] Patient Discharge Instructions Person Information Name: HARJIT ASENCIO I Age: 73 Years Arrival Date: 10/05/2023 17:54:10 Discharge Diagnosis: 1:Constipation Primary Care Physician: Peggy Nazario MD Provider Information Primary Provider: Koby Masterson DO Advanced Bar Roller:None The exam and treatment you received in the Emergency Department were for an urgent problem and are not intended as complete care. It is important that you follow up with a doctor, nurse practitioner, or physician?s emergency medicine physician assistant for ongoing care. If your symptoms become worse or you do not improve as expected and you are unable to reach your usual health care provider, you should return to the Emergency Department. We are available 24 hours a day. HARJIT ASENCIO I has been given the following list of patient education materials, prescriptions and follow-up instructions: Follow-up Instructions: With: Address: When: Johan HENRIQUEZ [address] [id number] [employer] (1) In 3 days 10/08/2023 With: Address: When: Peggy Nazario [address] [place] [id number] [employer] (1) In 3 days In the event that this physician does not participate in your insurance network, please consult with your insurance company to find a nearby participating provider. Patient Education Materials: Constipation, Adult, Pexm-gw-Vrqs; Gastroesophageal Reflux Disease, Adult, Lilm-kg-Nkkb; Abdominal Pain, Adult, Akhg-qv-Hpei A MESSAGE TO ALL PATIENTS REGARDING OPIOIDS PRESCRIPTION OPIOIDS: WHAT YOU NEED TO KNOW Prescription opioids can be used to help relieve krpagusu-vq-ntpckv pain and are often prescribed following a [...] ? If (more content not included)... Normal [facility] CNPNon 10-02-2023 CNPN Normal [facility] Echocardiographyon Echocardiography [id number] 0 [id number]#1 .00TIFF [facility] Outside Cardiovascularon Outside Cardiovascular [id number]#1 .00TIFF [facility] Outside Cardiovascular [id number]#[address] [facility] Outside Cardiovascular [id number]#[address] [facility] Outside Operativeon 09-27-19 24 Outside Operative [id number] 0 [id number]#[address] [facility] Outside Operative [id number] 0 [id number]#[address] [facility] Outside Radiologyon 09-27-19 24 Outside Radiology [id number] 0 [id number]#[address] [facility] Outside Radiology [id number]#[address] [facility] CBC panel Auto (Bld)on 09-26 Erythrocyte distribution width (RBC) [Ratio] 13.2 % Normal 11.5-15.0 [facility] Comment on above: Order Comment: Speci men Type: BLOOD SPECIMENOrdering Facility: [facility] Address: [address] [place] [address] Performed By: #### 5 8410-2 ####[facility] [id number] [place] [address] [place] Hematocrit (Bld) [Volume fraction] 38.1 % Normal 36.0-46.0 [facility] Comment on above: Order Comment: Speci men Type: BLOOD SPECIMENOrdering Facility: [facility] Address: [address] [place] [address] Performed By: #### 5 8410-2 ####[facility] [id number] [place] [address] [place] Hemoglobin (Bld) [Mass/Vol] 12.2 g/dL Normal 11.5-15.5 [facility] Comment on above: Order Comment: Speci men Type: BLOOD SPECIMENOrdering Facility: [facility] Address: [address] [place] [address] Performed By: #### 5 8410-2 ####[facility] LABIA [id number] [place] [address] [place] MCH (RBC) [Entitic mass] 29.5 pg Normal 26.0-34.0 [facility] Comment on above: Order Comment: Speci men Type: BLOOD SPECIMENOrdering Facility: [facility] Address: [address] [place] [address] Performed By: #### 5 8410-2 ####[facility] LABIA [id number] [place] [address] [place] MCHC (RBC) [Mass/Vol] 32.0 g/dL Normal 30.5-36.0 [facility] Comment on above: Order Comment: Speci men Type: BLOOD SPECIMENOrdering Facility: [facility] Address: [address] [place] [address] Performed By: #### 5 8410-2 ####[facility] [id number] [place] [address] [place] MCV (RBC) [Entitic vol] 92.0 fL Normal 80.0-100.0 [facility] Comment on above: Order Comment: Speci men Type: BLOOD SPECIMENOrdering Facility: [facility] Address: [address] [place] [address] Performed By: #### 5 8410-2 ####[facility] LABIA [id number] [place] [address] [place] Nucleated RBC (Bld) [#/Vol] 10*3/uL Normal <0.01 [facility] Comment on above: Order Comment: Speci men Type: BLOOD SPECIMENOrdering Facility: [facility] Address: [address] [place] [address] Performed By: #### 5 8410-2 ####[facility] LABIA [id number] [place] [address] [place] Platelet mean volume (Bld) [Entitic vol] 10.5 fL Normal 9.0-12.7 [facility] Comment on above: Order Comment: Speci men Type: BLOOD SPECIMENOrdering Facility: [facility] Address: [address] [place] [address] Performed By: #### 5 8410-2 ####[facility] LABCLIA [id number] [place] [address] [place] Platelets (Bld) [#/Vol] 195 10*3/uL Normal 150-400 [facility] Comment on above: Order Comment: Speci men Type: BLOOD SPECIMENOrdering Facility: [facility] Address: [address] [place] [address] Performed By: #### 5 8410-2 ####[facility] LABCLIA [id number] [place] [address] [place] RBC (Bld) [#/Vol] 4.14 10*6/uL Normal 3.90-5.20 [facility] Comment on above: Order Comment: Speci men Type: BLOOD SPECIMENOrdering Facility: [facility] Address: [address] [place] [address] Performed By: #### 5 8410-2 ####[facility] LABIA [id number] [place] [address] [place] WBC (Bld) [#/Vol] 6.03 10*3/uL Normal 3.70-11.00 [facility] Comment on above: Order Comment: Speci men Type: BLOOD SPECIMENOrdering Facility: [facility] Address: [address] [place] [address] Performed By: #### 5 8410-2 ####[facility] LABCLIA [id number] [place] [address] [place] CCF CBC PNL [...] Healthcare Specimen Type: BLOOD SPECIMEN [facility] Address: [address] [place] [address] Original Ordering Provider: ALEA GUZMAN [facility] CNOVon 09-26-2023 CNOV Normal [facility] CNPTOUTREACHon 09-26-2023 CNPTOUTREACH Normal [facility] Comprehensive metabolic 2000 panelon 09-26-2023 Albumin [Mass/Vol] 4.2 g/dL Normal 3.9-4.9 [facility] Comment on above: Order Comment: Speci men Type: BLOOD SPECIMENOrdering Facility: [facility] Address: [address] [place] [address] Performed By: #### 3 3762-6, 09494-6 ####[facility] LABCLIA [id number] [place] [address] [place] ALP [Catalytic activity/Vol] 57 U/L Normal 34-123 [facility] Comment on above: Order Comment: Speci men Type: BLOOD SPECIMENOrdering Facility: [facility] Address: [address] [id number] Performed By: #### 3 3762-6, 47922-8 ####[facility] LABCLIA [id number] [place] [address] [place] ALT [Catalytic activity/Vol] 36 U/L Normal 7-38 [facility] Comment on above: Order Comment: Speci men Type: BLOOD SPECIMENOrdering Facility: [facility] Address: [address] [place] [address] Performed By: #### 3 3762-6, 74058-9 ####[facility] LABCLIA [id number] [place] [address] [place] Anion gap [Moles/Vol] 10 mmol/L Normal 9-18 [facility] Comment on above: Order Comment: Speci men Type: BLOOD SPECIMENOrdering Facility: [facility] Address: [address] [place] [address] Performed By: #### 3 3762-6, ####[facility] LABCLIA [id number] [place] [address] [place] AST [Catalytic activity/Vol] 29 U/L Normal 13-35 [facility] Comment on above: Order Comment: Speci men Type: BLOOD SPECIMENOrdering Facility: [facility] Address: [address] [place] [address] Performed By: #### 3 3762-6, 57791-5 ####[facility] LABCLIA [id number] [place] [id number] [place] Bilirubin [Mass/Vol] 0.6 mg/dL Normal 0.2-1.3 [facility] Comment on above: Order Comment: Speci men Type: BLOOD SPECIMENOrdering Facility: [facility] Address: [address] [place] [address] Performed By: #### 3 3762-6, 78656-0 ####[facility] LABCLIA [id number] [facility] [place] [address] [place] Calcium [Mass/Vol] 9.6 mg/dL Normal 8.5-10.2 [facility] Comment on above: Order Comment: Speci men Type: BLOOD SPECIMENOrdering Facility: [facility] Address: [address] [place] [address] Performed By: #### 3 3762-6, ####[facility] LABCLIA [id number] [place] [address] [place] Chloride [Moles/Vol] 100 mmol/L Normal 97-105 [facility] Comment on above: Order Comment: Speci men Type: BLOOD SPECIMENOrdering Facility: [facility] Address: [address] [place] [address] Performed By: #### 3 3762-6, ####[facility] LABCLIA [id number] [place] [address] [place] CO2 [Moles/Vol] 29 mmol/L Normal 22-30 [facility] Comment on above: Order Comment: Speci men Type: BLOOD SPECIMENOrdering Facility: [facility] Address: [address] [place] [address] Performed By: #### 3 3762-6, ####[facility] LABCLIA [id number] [place] [address] [place] Creatinine [Mass/Vol] 0.82 mg/dL Normal 0.58-0.96 [facility] Comment on above: Order Comment: Speci men Type: BLOOD SPECIMENOrdering Facility: [facility] Address: [address] [place] [address] Performed By: #### 3 3762-6, 68294-1 ####[facility] LABCLIA [id number] [place] [address] [place] Creatinine and Glomerular filtration rate.predicted panel (S/P/Bld) 75 mL/min/1.73m??? Normal >=60 [facility] Comment on above: Order Comment: Nichole becerra Type: BLOOD SPECIMENOrdering Facility: [facility] Address: [address] [place] [address] Result Comment: Shelley mated Glomerular Filtration Rate [...] actual GFR. Performed By: #### 3 3762-6, 80196-2 ####[facility] LABCLIA [id number] [place] [address] [place] Glucose [Mass/Vol] 129 mg/dL High 74-99 [facility] Comment on above: Order Comment: Nichole becerra Type: BLOOD SPECIMENOrdering Facility: [facility] Address: [address] [place] [address] Result Comment: The [place] [employer] (ADA) provides guidance for cutoff [...] Standards of Medical Care in Diabetes 2016, [place] [employer]. Diabetes Care. 2016.39(Suppl 1). Performed By: #### 3 3762-6, 93609-4 ####[facility] LABCLIA [id number] [place] [address] [place] Potassium [Moles/Vol] 4.3 mmol/L Normal 3.7-5.1 [facility] Comment on above: Order Comment: Speci men Type: BLOOD SPECIMENOrdering Facility: [facility] Address: [address] [place] [address] Performed By: #### 3 3762-6, 25123-4 ####[facility] LABCLIA [id number] [place] [address] [place] Protein [Mass/Vol] 6.4 g/dL Normal 6.3-8.0 [facility] Comment on above: Order Comment: Speci men Type: BLOOD SPECIMENOrdering Facility: [facility] Address: [address] [place] [address] Performed By: #### 3 3762-6, 29119-0 ####[facility] LABCLIA [id number] [place] [address] [place] Sodium [Moles/Vol] 139 mmol/L Normal 136-144 [facility] Comment on above: Order Comment: Speci men Type: BLOOD SPECIMENOrdering Facility: [facility] Address: [address] [place] [address] Performed By: #### 3 3762-6, ####[facility] LABCLIA [id number] [place] [address] [place] Urea nitrogen [Mass/Vol] 15 mg/dL Normal 7-21 [facility] Comment on above: Order Comment: Speci men Type: BLOOD SPECIMENOrdering Facility: [facility] Address: [address] [place] [address] Performed By: #### 3 3762-6, 85615-4 ####[facility] LABIA [id number] [place] [address] [place] [id number] 09-26-2023 ECG01 Normal [facility] NT-proBNP SerPl-mCncon 09-26 Natriuretic peptide.B prohormone N-Terminal [Mass/Vol] 2047 pg/mL High <450 [facility] Comment on above: Order Comment: Speci men Type: BLOOD SPECIMENOrdering Facility: [facility] Address: [address] [place] [address] Performed By: #### 3 3762-6, 18324-3 ####[facility] LABCLIA [id number] [place] [address] [place] URINALYSIS, REFLEX MICROSCOP ICon 09-26-2023 Bacteria LM.HPF (Urine sed) [#/Area] Few Abnormal None Seen /HPF [facility] Bilirubin Ql (U) Negative Negative [facility] Clarity (Unsp spec) Cloudy Abnormal Clear [facility] Color (U) Yellow Yellow [facility] Epithelial cells LM.HPF (Urine sed) [#/Area] Moderate [facility] Epithelial cells LM.HPF (Urine sed) [#/Area] Few Abnormal None Seen /HPF [facility] Glucose Test strip (U) [Mass/Vol] Negative Trace, Negative [facility] Hemoglobin Ql (U) 1+ Abnormal Negative, Trace [facility] Ketones Ql (U) Negative Negative, Trace [facility] Leukocyte esterase Test strip Ql (U) 500 Ghislaine/uL Abnormal Negative, 25 Ghislaine/uL [facility] Nitrite Ql (U) Negative Negative [facility] pH (U) 6.0 [pH] 5.0 - 8.0 [facility] Protein (U) [Mass/Vol] Negative Trace, Negative [facility] RBC LM.HPF (Urine sed) [#/Area] 3-5 /HPF Abnormal 0-3 /HPF [facility] Specific gravity (U) [Rel density] 1.013 1.005 - 1.030 [facility] Urobilinogen Ql (U) Normal Normal [facility] WBC LM.HPF (Urine sed) [#/Area] /[HPF] Abnormal 0-5 /HPF [facility] Bacteria LM.HPF (Urine sed) [#/Area] Few Abnormal None Seen [facility] Comment on above: Order Comment: Speci men Type: URINE SPECIMENOrdering Facility: [facility] Address: [address] [place] [address] Performed By: #### L [id number] ####[facility] LABCLIA [id number] [place] [address] [place] Bilirubin Ql (U) Negative Normal Negative [facility] Comment on above: Order Comment: Speci men Type: URINE SPECIMENOrdering Facility: [facility] Address: [address] [place] [address] Performed By: #### L [id number] ####[facility] LABCLIA [id number] [place] [address] [place] Clarity (Unsp spec) Cloudy Abnormal Clear [facility] Comment on above: Order Comment: Speci men Type: URINE SPECIMENOrdering Facility: [facility] Address: [address] [place] [address] Performed By: #### L [id number] ####[facility] LABCLIA [id number] [place] [address] [place] Color (U) Yellow Normal Yellow [facility] Comment on above: Order Comment: Speci men Type: URINE SPECIMENOrdering Facility: [facility] Address: [address] [place] [address] Performed By: #### L [id number] ####[facility] LABCLIA [id number] [place] [address] [place] Epithelial cells LM.HPF (Urine sed) [#/Area] Moderate Normal [facility] Comment on above: Order Comment: Speci men Type: URINE SPECIMENOrdering Facility: [facility] Address: [address] [place] [address] Result Comment: Few Performed By: #### L [id number] ####[facility] LABCLIA [id number] [place] [address] [place] Glucose Test strip (U) [Mass/Vol] Negative Normal Trace, Negative [facility] Comment on above: Order Comment: Speci men Type: URINE SPECIMENOrdering Facility: [facility] Address: [address] [place] [address] Performed By: #### L [id number] ####[facility] LABCLIA [id number] [place] [address] [place] Hemoglobin Ql (U) 1+ Abnormal Negative, Trace [facility] Comment on above: Order Comment: Speci men Type: URINE SPECIMENOrdering Facility: [facility] Address: [address] [place] [address] Performed By: #### L [id number] ####[facility] LABCLIA [id number] [place] [address] [place] Ketones Ql (U) Negative Normal Negative, Trace [facility] Comment on above: Order Comment: Speci men Type: URINE SPECIMENOrdering Facility: [facility] Address: [address] [place] [address] Performed By: #### L [id number] ####[facility] LABCLIA [id number] [place] [address] [place] Leukocyte esterase Test strip Ql (U) 500 Ghislaine/uL Abnormal Negative, 25 Ghislaine/uL [facility] Comment on above: Order Comment: Speci men Type: URINE SPECIMENOrdering Facility: [facility] Address: [address] [place] [address] Performed By: #### L [id number] ####[facility] LABCLIA [id number] [place] [address] [place] Nitrite Ql (U) Negative Normal Negative [facility] Comment on above: Order Comment: Speci men Type: URINE SPECIMENOrdering Facility: [facility] Address: [address] [place] [address] Performed By: #### L [id number] ####[facility] LABCLIA [id number] [place] [address] [place] pH (U) 6.0 [pH] Normal 5.0-8.0 [facility] Comment on above: Order Comment: Speci men Type: URINE SPECIMENOrdering Facility: [facility] Address: [address] [place] [address] Performed By: #### L [id number] ####[facility] LABIA [id number] [place] [address] [place] Protein (U) [Mass/Vol] Negative Normal Trace, Negative [facility] Comment on above: Order Comment: Speci men Type: URINE SPECIMENOrdering Facility: [facility] Address: [address] [place] [address] Performed By: #### L [id number] ####[facility] LABIA [id number] [place] [address] [place] RBC LM.HPF (Urine sed) [#/Area] 3-5 /HPF Abnormal 0-3 /HPF [facility] Comment on above: Order Comment: Speci men Type: URINE SPECIMENOrdering Facility: [facility] Address: [address] [place] [address] Performed By: #### L [id number] ####[facility] [id number] [place] [address] [place] Specific gravity (U) [Rel density] 1.013 Normal 1.005-1.030 [facility] Comment on above: Order Comment: Speci men Type: URINE SPECIMENOrdering Facility: [facility] Address: [address] [place] [address] Performed By: #### L [id number] ####[facility] [id number] [place] [address] [place] Urobilinogen Ql (U) Normal Normal Normal [facility] Comment on above: Order Comment: Speci men Type: URINE SPECIMENOrdering Facility: [facility] Address: [address] [place] [address] Performed By: #### L [id number] ####[facility] LABIA [id number] [place] [address] [place] WBC LM.HPF (Urine sed) [#/Area] /[HPF] Abnormal 0-5 /HPF [facility] Comment on above: Order Comment: Speci men Type: URINE SPECIMENOrdering Facility: [facility] Address: [address] [place] [address] Performed By: #### L [id number] ####[facility] LABCLIA [id number] [place]ISCI[place]A [id number] [address] [place] CNPNon 09-21-2023 CNPN Normal [facility] BMPon 09-17-2023 Anion gap [Moles/Vol] 9 mmol/L Normal 6-16 [facility] Comment on above: Performed By: #### 2 184164, 16888838, 7928409, 3944841, 7217997, 8771785 #### [facility] [address] [place] [address] BUN/Creat Ratio 24 No Units High 10-20 [facility] Comment on above: Performed By: #### 2 456394, 57039743, 5242590, 6779131, 5790468, 1411898 #### [facility] [address] [place] [address] Calcium [Mass/Vol] 9.1 mg/dL Normal 8.9-11.1 [facility] Comment on above: Performed By: #### 2 054848, 37698201, 1124611, 7484545, 5647043, 4546619 #### [facility] [address] [place] [address] Chloride [Moles/Vol] 105 mmol/L Normal 101-111 [facility] Comment on above: Performed By: #### 2 892065, 36770859, 1982707, 6850936, 3371075, 0709926 #### [facility] [address] [place] [address] CO2 [Moles/Vol] 28 mmol/L Normal 21-31 [facility] Comment on above: Performed By: #### 2 652446, 26337474, 7820585, 0902406, 6252231, 0764661 #### [facility] [address] [place] [address] Creatinine [Mass/Vol] 0.7 mg/dL Normal 0.5-1.3 [facility] Comment on above: Performed By: #### 2 901493, 05708416, 5598975, 3804191, 4215330, 2996328 #### [facility] [address] [place] [address] Glucose [Mass/Vol] 83 mg/dL Normal 55-199 [facility] Comment on above: Performed By: #### 2 212318, 68506344, 3457859, 5573280, 2775332, 6169066 #### [facility] [address] [place] [address] Potassium [Moles/Vol] 4.0 mmol/L Normal 3.5-5.3 [facility] Comment on above: Performed By: #### 2 267136, 46775600, 4227022, 0976840, 3124476, 0803541 #### [facility] [address] [place] [address] Sodium [Moles/Vol] 138 mmol/L Normal 135-145 [facility] Comment on above: Performed By: #### 2 000190, 57681522, 1774835, 0851499, 0810151, 3936394 #### [facility] [address] [place] [address] Urea nitrogen [Mass/Vol] 17 mg/dL Normal 5-21 [facility] Comment on above: Performed By: #### 2 682118, 90765637, 5276545, 2836498, 4414098, 1518865 #### [facility] [address] [place] [address] CBC w/ Auto Diffon 4 Basophil Absolute 0.1 E9/L Normal 0.0-0.2 [facility] Comment on above: Performed By: #### 2 288852, 24786070, 3827759, 4031073, 5310338, 7330481 #### [facility] [address] [place] [address] Basophils/100 WBC (Bld) 0.9 % Normal 0.0-2.0 [facility] Comment on above: Performed By: #### 2 236729, 70566509, 4166468, 0497835, 0761651, 2658833 #### [facility] [address] [place] [address] Eos Absolute 0.0 E9/L Normal 0.0-0.5 [facility] [facility] Comment on above: Performed By: #### 2 106925, 92266271, 7456531, 5883330, 0374045, 9921697 #### [facility] [address] [place] [address] 32673 Eosinophils/100 WBC (Bld) 0.7 % Normal 0.0-8.0 [facility] Comment on above: Performed By: #### 2 689668, 61840306, 1125850, 3925320, 6877395, 1274018 #### [facility] [address] [place] [address] 38387 Erythrocyte distribution width (RBC) [Ratio] 14.1 % Normal 10.9-14.2 [facility] Comment on above: Performed By: #### 2 041011, 67686419, 9398664, 2297464, 6360553, 1792831 #### [facility] [address] [place] [address] 16693 Hematocrit (Bld) [Volume fraction] 36.0 % Normal 34.0-46.0 [facility] Comment on above: Performed By: #### 2 297706, 55464588, 0580645, 2028342, 3163366, 6787080 #### [facility] [address] [place] [address] 59837 Hemoglobin (Bld) [Mass/Vol] 12.2 g/dL Normal 12.0-16.0 [facility] Comment on above: Performed By: #### 2 885861, 71739491, 8108922, 3073547, 6607052, 7720558 #### [facility] [address] [place] [address] Lymph Absolute 2.1 E9/L Normal 1.0-4.0 [facility] Comment on above: Performed By: #### 2 411039, 58811603, 4005697, 1391151, 8713288, 4640706 #### [facility] [address] [place] [address] 74190 Lymphocytes/100 WBC (Bld) 31.6 % Normal 14.0-50.0 [facility] Comment on above: Performed By: #### 2 164783, 67572316, 3328563, 4250328, 8263504, 2034920 #### [facility] [address] [place] [address] 80689 MCH (RBC) [Entitic mass] 30.0 pg Normal 27.0-34.0 [facility] Comment on above: Performed By: #### 2 445430, 18129683, 1330464, 6724844, 6772997, 1018270 #### [facility] [address] [place] [address] 12139 MCHC (RBC) [Mass/Vol] 34.1 g/dL Normal 31.4-36.0 [facility] Comment on above: Performed By: #### 2 060929, 18270061, 8994566, 7141951, 8832581, 8593787 #### [facility] [address] [place] [address] 10419 MCV (RBC) [Entitic vol] 88.0 fL Normal 80.0-100.0 [facility] Comment on above: Performed By: #### 2 576643, 22236469, 2331159, 6225556, 6112822, 9324999 #### [facility] [address] [place] [address] 01027 Ramsey Absolute 0.6 E9/L Normal 0.2-1.0 [facility] Comment on above: Performed By: #### 2 098295, 39618693, 0675703, 1972691, 4031821, 7376119 #### [facility] [address] [place] [address] 36515 Monocytes/100 WBC (Bld) 9.5 % Normal 4.0-14.0 [facility] Comment on above: Performed By: #### 2 602728, 78279614, 8929726, 1088672, 3973728, 5711084 #### [facility] [address] [place] [address] 97343 Neutro Absolute 3.8 E9/L Normal 2.0-7.5 [facility] Comment on above: Performed By: #### 2 887810, 91145605, 0078223, 4894174, 3612595, 4552124 #### [facility] [address] [place] [address] 92738 Neutro Auto 57.3 % Normal 36.0-75.0 [facility] Comment on above: Performed By: #### 2 019703, 76618380, 5794478, 5713605, 0286558, 6920858 #### [facility] [address] [place] [address] 18973 Platelet 186.0 E9/L Normal 150.0-500.0 [facility] Comment on above: Performed By: #### 2 874549, 05397206, 7638659, 9672494, 3661152, 7513543 #### [facility] [address] [place] [address] 07495 Platelet mean volume (Bld) [Entitic vol] 8.0 fL Normal 6.4-10.8 [facility] Comment on above: Performed By: #### 2 440076, 81186046, 5692296, 3478621, 2164695, 9491484 #### [facility] [address] [place] [address] RBC 4.1 E12/L Low 4.3-5.9 [facility] Comment on above: Performed By: #### 2 564602, 10560303, 9767115, 9000964, 7836917, 3964557 #### [facility] [address] [place] [address] WBC 6.6 E9/L Normal 4.0-11.0 [facility] Comment on above: Performed By: #### 2 635867, 19777780, 0394168, 9754187, 6533459, 5006121 #### [facility] [address] [place] [address] CHEMISTRYOrdered By: SYSTEM SYSTEM on 09-17-2023 Anion [...] Sensitivity Troponin I Instructions For Use, Marlys Northumberland, March 2018) Urea nitrogen [Mass/Vol] 17 mg/dL Normal 5 - 21 mg/dL Remisol Chem Urea nitrogen/Creatinine [Mass ratio] 24 mg/mg High 10 - 20 Remisol Chem CHEMISTRYOrdered By: Lab ROP User on 09-17-2023 Glucose [Mass/Vol] 79 mg/dL Normal 55 - 99 mg/dL [facility] [place] Sub[place] Comment on above: Result Comment: Neli cain RN/ POC Device SN [id number] Invalid Interpretation Code [facility] [place] Subsection POC User ID [id number] 1 Invalid Interpretation Code [facility] [place] [place] Subsection POC Username ZIGGY HOLGUIN Invalid Interpretation Code [facility] [place] Subsection CNPNon 09-17-2023 CNPN Normal [facility] COAGULATIONOrdered By: Han Frost on 09-17-2023 aPTT Coag (PPP) [Time] 38.2 s High 25.1 - 36.5 second(s) [facility] [place] [place] Auto Coag Comment on [...] the same coagulation reagent and instrumentation as [facility] [place]. Currently there are no coagulation studies available worldwide for children to 14 days, and no normal ranges. Heparin therapeutic range (represented by Anti-Factor Xa activity of 0.2 - 0.4 U/mL) corresponds to PTT of 56.6 - 109.0 sec. INR Coag (PPP) [Relative time] 1.4 {INR} Invalid Interpretation Code [facility] [place] Comment on above: Interpretive Data: I NR results are specifically intended to assess patients stabilized on long-term Anticoagulation therapy suggested INR s Less Intensive Anticoagulation 2.0 3.0 Conventional Range 3.0 4.5 PT Coag (PPP) [Time] 16.4 s High 9.4 - 1 2.5 second(s) [facility] [place] [place] Co[facility] Comment on [...] the same coagulation reagent and instrumentation as [facility] [place]. Currently there are no coagulation studies available worldwide for children to 14 days, and no normal ranges. Capillary Glucose POCon Glucose [Mass/Vol] 79 mg/dL Normal 55-99 [facility] Comment on above: Result Comment: Neli cain RN/ Performed By: #### 2 [id number] ####[facility] [address] [place] [address] Consent for Treatmenton Consent for Treatment [id number] [facility] Discharge Instructionson Discharge Instructions [id number]# 1.00TIFF Normal [facility] ED Clinical Summaryon 2023 ED Clinical Summary [address] [address] ED Clinical Summary Person Information Name: HARJIT ASENCIO I [place] Age: 73 Years : 1950 Sex: Female Language: Bahraini PCP: Peggy Nazario MD Marital Status: Visit [...] 09/17/2023 06:16:25 09/17/2023 06:16:25 09/17/2023 06:16:25 ADDRESS: [address] [place] [address] [address] [facility] [id number] PHYS DOC NOTES: MEDICAL INFORMATION: Prescriptions Given: [...] Address: When: Peggy Nazario [address] [place] [address] Business (1) In 3 days DIAGNOSIS: Acid reflux; Medication reaction Normal [facility] ED Note-Physicianon 09-17-19 ED Note-Physician Basic [...] and Complexity of Problems Differential Diagnosis: [] [facility] Data External documents reviewed: N/A My EKG [...] Nazario In [address] [place] [address]- Business (1) Additional Instructions: Patient Education Drug [...] (02/01/2019), C (more content not included)... Normal [facility] Comment on above: Result Comment: Elec [...] vinegar, hot sauces, and barbecue sauce. ? Toole fruit juices and citrus fruits, such as oranges, ronald, and limes. ? Tomato-based foods, such as red sauce, chili, salsa, and pizza with red sauce. ? Fried and fatty foods, such as donuts, citizen of [place] fries, potato chips, and high-fat dressings. ? [...] your health care provider. Medicines ? Take nxuy-amt-esdswki and prescription medicines only as told by [...] by your health care provider. ? Take tqqu-udy-vmmnrfe and prescription medicines only as told by [...] provider. Document Revised: 02/03/2021 Document Reviewed: 02/03/2021 [employer] Patient Education ? 2022 [employer]. Pharmacology Drug Allergy A drug allergy happens when the body's disease-fighting system (immune system) reacts badly to a medicine. Drug allergies range from mild to severe. A drug allergy is not the same as a medicine side effect, which is a known possible reaction to the drug. A drug allergy is a (more content not included)... Normal [facility] ED Patient Summaryon 024 ED Patient Summary [place] [address] Patient Discharge Instructions Person Information Name: HARJIT ASENCIO I Age: 73 Years Arrival Date: 09/17/2023 04:55:16 Discharge Diagnosis: Acid reflux; Medication reaction Primary Care Physician: Aravind MCMAHON, Peggy Mcmillan Provider Information Primary Provider: Parveen Ayers DO Advanced Bar Roller:None The exam and treatment you received in the Emergency Department were for an urgent problem and are not intended as complete care. It is important that you follow up with a doctor, nurse practitioner, or physician?s emergency medicine physician assistant for ongoing care. If your symptoms become worse or you do not improve as expected and you are unable to reach your usual health care provider, you should return to the Emergency Department. We are available 24 hours a day. HARJIT ASENCIO I has been given the following list of patient education materials, prescriptions and follow-up instructions: Follow-up Instructions: With: Address: When: Peggy Nazario [address] [place] [address] Business (1) In 3 days In the event that this physician does not participate in your insurance network, please consult with your insurance company to find a nearby participating provider. Patient Education Materials: Drug Allergy; Heartburn A MESSAGE TO ALL PATIENTS REGARDING OPIOIDS PRESCRIPTION OPIOIDS: WHAT YOU NEED TO KNOW Prescription opioids can be used to help relieve fqpwruke-tr-hlmooq pain and are often prescribed following a [...] be struggling with addiction, tell your health direct care worker and ask for guidance or call [facility]?S National Helpline at 6-092-283-RYQM. Source: [place] Department of Health and (more content not included)... Normal [facility] HEMATOLOGYOrdered By: SYSTEM SYSTEM on 09-17-2023 [...] Normal 80.0 - 100.0 fL Remisol Heme Ramsey Absolute 0.6 E9/L Normal 0.2 - 1.0 [...] Remisol Heme Monitor Recordon 09-17-2023 Monitor Record [id number]# 1.00TIFF Normal [facility] PT & PTTon 09-17-2023 aPTT Coag (PPP) [Time] 38.2 second(s) High 25.1-36.5 [facility] Comment on above: Result Comment: Para meter 15 days - 4 weeks 1 - 5 months 6 - 11 months 1 - 5 years 6 - 10 years 11 - 17 years PTT Mean: 35.4 (27.6-45.6) Mean: 33.5 (24.8-40.7) Mean: 32.4 (25.1-40.7) Mean: 31.6 (24.0-39.2) Mean: 31.6 (26.9-38.7) Mean: 31.0 (24.6-38.4) Pediatric Reference ranges were obtained from a study by nithin Fam. prepared from 1437 samples obtained at 7 different centers using the same coagulation reagent and instrumentation as [facility] [place]. Currently there are no coagulation studies available worldwide for children to 14 days, and no normal ranges. Heparin therapeutic range (represented by Anti-Factor Xa activity of 0.2 - 0.4 U/mL) corresponds to PTT of 56.6 - 109.0 sec. Performed By: #### 2 015438, 05713796, 5476367, 2831675, 6056589, 6283043 #### [facility] [address] [place] [address] INR Coag (PPP) [Relative time] 1.4 {INR} Invalid Interpretation Code [facility] Comment on above: Result Comment: INR results are specifically intended to assess patients stabilized on long-term Anticoagulation therapy suggested INR?s ?Less Intensive Anticoagulation? 2.0 ? 3.0 Conventional Range 3.0 ? 4.5 Performed By: #### 2 462605, 74566304, 4582995, 8828143, 2586834, 0667414 #### [facility] [address] [place] [address] PT Coag (PPP) [Time] 16.4 second(s) High 9.4-12.5 [facility] Comment on above: Result Comment: 15 [...] the same coagulation reagent and instrumentation as [facility]. Currently there are no coagulation studies available worldwide for children to 14 days, and no normal ranges. Performed By: #### 2 924405, 60435064, 6697293, 0392907, 6927059, 9772655 #### [facility] [address] [place] [address] Troponin 0 Hr.on 09-17-2023 Troponin 11.70 pg/mL Normal 10.10-27.10 [facility] Comment on above: Result Comment: The 95% CI (Confidence Interval) PPV (Positive Predictive Value) for myocardial infarction in females is 38 pg/mL, in males 51 pg/mL. The results should be used in conjunction with clinical conditions of myocardial infarction. (Access High Sensitivity Troponin I Instructions For Use, Marlys [place]umberland, March 2018) Performed By: #### 2 797687, 27309157, 6593117, 6143757, 1910286, 0306330 #### [facility] [address] [place] [address] XR Chest Single Viewon 09-17 XR Chest [...] mGy = na DAP = na Normal [facility] eGFRon 09-17-2023 eGFR 90 mL/min/1.73 m2 Normal >=59 [facility] Comment on above: Order Comment: Order added by Discern Expert. Performed By: #### 2 105967, 38125826, 2421379, 6587913, 0748721, 0396154 #### [facility] [address] [place] [address] BMPon 09-12-2023 Anion gap [Moles/Vol] 12 mmol/L Normal 6-16 [facility] Comment on above: Performed By: #### 2 214747, 10313619, 8675570, 6029079, 7932307, 8991401 #### [facility] [address] [place] [address] BUN/Creat Ratio 27 No Units High 10-20 [facility] Comment on above: Performed By: #### 2 198641, 10251210, 4040968, 4018609, 6389828, 4861430 #### [facility] [address] [place] [address] Calcium [Mass/Vol] 9.5 mg/dL Normal 8.9-11.1 [facility] Comment on above: Performed By: #### 2 309935, 06572220, 0384046, 1138009, 4992339, 5380018 #### [facility] [address] [place] [address] Chloride [Moles/Vol] 101 mmol/L Normal 101-111 [facility] Comment on above: Performed By: #### 2 611974, 29778671, 0853491, 4105345, 5476906, 6596016 #### [facility] [address] [place] [address] CO2 [Moles/Vol] 27 mmol/L Normal 21-31 [facility] Comment on above: Performed By: #### 2 994084, 49124601, 3874485, 1909271, 0752559, 7040881 #### [facility] [address] [place] [address] Creatinine [Mass/Vol] 0.9 mg/dL Normal 0.5-1.3 [facility] Comment on above: Performed By: #### 2 205177, 29072240, 9410442, 3661713, 1162680, 6652773 #### [facility] [address] [place] [address] Glucose [Mass/Vol] 87 mg/dL Normal 55-199 [facility] Comment on above: Performed By: #### 2 347905, 57792254, 2939859, 8623318, 5938488, 6810229 #### [facility] [address] [place] [address] Potassium [Moles/Vol] 4.9 mmol/L Normal 3.5-5.3 [facility] Comment on above: Performed By: #### 2 311802, 98558364, 4960797, 9768795, 9604846, 6661904 #### [facility] [address] [place] [address] Sodium [Moles/Vol] 135 mmol/L Normal 135-145 [facility] Comment on above: Performed By: #### 2 548584, 23086100, 4714937, 4763503, 7772129, 1622431 #### [facility] [address] [place] [address] Urea nitrogen [Mass/Vol] 24 mg/dL High 5-21 [facility] Comment on above: Performed By: #### 2 809491, 97910459, 2171713, 4512925, 5809163, 3719229 #### [facility] [address] [place] [address] CBC w/ Auto Diffon 4 Basophil Absolute 0.1 E9/L Normal 0.0-0.2 [facility] Comment on above: Performed By: #### 2 935767, 05874402, 2556261, 2260057, 9262328, 2252442 #### [facility] [address] [place] [address] Basophils/100 WBC (Bld) 1.1 % Normal 0.0-2.0 [facility] Comment on above: Performed By: #### 2 762467, 09553761, 2836321, 0289453, 6154187, 3256283 #### [facility] [address] [place] [address] Eos Absolute 0.1 E9/L Normal 0.0-0.5 [facility] Comment on above: Performed By: #### 2 511670, 85374280, 7696188, 1213492, 9591889, 0764586 #### [facility] [address] [place] [address] Eosinophils/100 WBC (Bld) 1.2 % Normal 0.0-8.0 [facility] Comment on above: Performed By: #### 2 846477, 75582331, 1257731, 8064952, 0627409, 5647546 #### [facility] [address] [place] [address] Erythrocyte distribution width (RBC) [Ratio] 13.7 % Normal 10.9-14.2 [facility] Comment on above: Performed By: #### 2 302497, 05312379, 2402090, 9185488, 1218930, 1695879 #### [facility] [address] [place] [address] Hematocrit (Bld) [Volume fraction] 41.0 % Normal 34.0-46.0 [facility] Comment on above: Performed By: #### 2 894804, 59561205, 4309972, 8119007, 8327474, 3007057 #### [facility] [address] [place] [address] Hemoglobin (Bld) [Mass/Vol] 13.4 g/dL Normal 12.0-16.0 [facility] Comment on above: Performed By: #### 2 553470, 70310631, 5173860, 2747349, 3872656, 8273963 #### [facility] [address] [place] [address] Lymph Absolute 1.9 E9/L Normal 1.0-4.0 [facility] Comment on above: Performed By: #### 2 662457, 21104670, 4290504, 2909491, 5633926, 5876040 #### [facility] [address] [place] [address] Lymphocytes/100 WBC (Bld) 25.9 % Normal 14.0-50.0 [facility] Comment on above: Performed By: #### 2 493889, 59359273, 7158439, 5496278, 3226841, 0458197 #### [facility] [address] [place] [address] MCH (RBC) [Entitic mass] 29.5 pg Normal 27.0-34.0 [facility] Comment on above: Performed By: #### 2 148490, 52500364, 4460643, 1276527, 4933215, 2063779 #### [facility] [address] [place] [address] MCHC (RBC) [Mass/Vol] 32.9 g/dL Normal 31.4-36.0 [facility] Comment on above: Performed By: #### 2 194250, 73475027, 8881579, 3300128, 8933677, 9489716 #### [facility] [address] [place] [address]53 MCV (RBC) [Entitic vol] 89.6 fL Normal 80.0-100.0 [facility] Comment on above: Performed By: #### 2 993379, 48668145, 6257184, 7345655, 4883267, 1458158 #### [facility] [address] [place] [address] Ramsey Absolute 0.6 E9/L Normal 0.2-1.0 [facility] Comment on above: Performed By: #### 2 561459, 67169726, 1674737, 1169414, 4520245, 7487908 #### [facility] [address] [place] [address] Monocytes/100 WBC (Bld) 8.0 % Normal 4.0-14.0 [facility] Comment on above: Performed By: #### 2 058322, 81789495, 8777029, 4515544, 6670404, 9318406 #### [facility] [address] [place] [address] Neutro Absolute 4.7 E9/L Normal 2.0-7.5 [facility] Comment on above: Performed By: #### 2 584474, 46701940, 4283080, 6215602, 4389971, 6728751 #### [facility] [address] [place] [address] Neutro Auto 63.8 % Normal 36.0-75.0 [facility] Comment on above: Performed By: #### 2 792152, 92772933, 5694318, 3482423, 4809190, 4014464 #### [facility] [address] [place] [address] Platelet 214.0 E9/L Normal 150.0-500.0 [facility] Comment on above: Performed By: #### 2 320511, 37064328, 4514588, 9393098, 3720643, 4645299 #### [facility] [address] [place] [address] Platelet mean volume (Bld) [Entitic vol] 8.2 fL Normal 6.4-10.8 [facility] Comment on above: Performed By: #### 2 151165, 51766318, 5006607, 7574564, 7566147, 7228639 #### [facility] [address] [place] [address] RBC 4.6 E12/L Normal 4.3-5.9 [facility] Comment on above: Performed By: #### 2 188164, 99590981, 1204988, 1455912, 4820336, 5281904 #### [facility] [address] [place] [address] WBC 7.4 E9/L Normal 4.0-11.0 [facility] Comment on above: Performed By: #### 2 023584, 08831754, 8063650, 2710753, 0322616, 7827962 #### [facility] [address] [place] [address] CHEMISTRYOrdered By: Maryan Frost on 09-12-2023 U [...] Sensitivity Troponin I Instructions For Use, Marlys [place], March 2018) Urea nitrogen [Mass/Vol] 24 mg/dL High 5 - 21 mg/dL Remisol Chem Urea nitrogen/Creatinine [Mass ratio] 27 mg/mg High 10 - 20 Remisol Chem CHEMISTRYOrdered By: Lab ROP User on 09-12-2023 Glucose [Mass/Vol] 96 mg/dL Normal 55 - 99 mg/dL [facility] [place] Subsection Comment on above: Result Comment: Neli cain RN/ POC Device SN [id number] Invalid Interpretation Code [facility] POC Subsection POC User ID [id number] 1 Invalid Interpretation Code [facility] POC Subsection POC Username CORINNE COTA Invalid Interpretation Code [facility] POC Subsection CNPNon 09-12-2023 CNPN Normal [facility] CT Head or Brain w/o Contras [...] Technologist: JON Technical Comments Contrast: None Normal [facility] Capillary Glucose POCon 08-16 Glucose [Mass/Vol] 96 mg/dL Normal 55-99 [facility] Comment on above: Result Comment: Neli cain RN/ Performed By: #### 2 582833, 34912530, 0632739, 2235906, 6406871, 9191443 #### [facility] [address] [place] [address] Consent for Treatmenton 08-16 Consent for Treatment [id number] [facility] Discharge Instructionson Discharge Instructions [id number] [facility] ED Clinical Summaryon 2023 ED Clinical Summary [address] [address] ED Clinical Summary Person Information Name: HARJIT ASENCIO I [place] Age: 73 Years : 1950 Sex: Female Language: Bahraini PCP: Peggy Nazario MD Marital Status: Visit [...] 09/12/2023 06:47:40 09/12/2023 06:47:40 09/12/2023 06:47:40 ADDRESS: [address] [place] [address] [address] [facility] [id number] PHYS DOC NOTES: MEDICAL INFORMATION: Prescriptions Given: [...] Address: When: Peggy Nazario [address] [place] [address] [employer] (1) In 3 days DIAGNOSIS: Acid reflux; Tremor Normal [facility] ED Note-Physicianon 09-12-19 ED Note-Physician Basic [...] and Complexity of Problems Differential Diagnosis: [] [facility] Data External documents reviewed: N/A My EKG [...] Information Peggy Nazario In 3 days [address] [place] [address] Business (1) Additional Instructions: Patient Education Tremor [...] urethral stri (more content not included)... Normal [facility] Comment on above: Result Comment: Elec [...] vinegar, hot sauces, and barbecue sauce. ? Toole fruit juices and citrus fruits, such as oranges, ronald, and limes. ? Tomato-based foods, such as red sauce, chili, salsa, and pizza with red sauce. ? Fried and fatty foods, such as donuts, citizen of [place] fries, potato chips, and high-fat dressings. ? [...] safe eugene (more content not included)... Normal [facility] ED Patient Summaryon 024 ED Patient Summary [address] [address] Patient Discharge Instructions Person Information Name: HARJIT ASENCIO I Age: 73 Years Arrival Date: 09/12/2023 04:02:15 Discharge Diagnosis: Acid reflux; Tremor Primary Care Physician: Peggy Nazario MD Provider Information Primary Provider: Parveen Ayers DO Advanced Bar Roller:None The exam and treatment you received in the Emergency Department were for an urgent problem and are not intended as complete care. It is important that you follow up with a doctor, nurse practitioner, or physician?s emergency medicine physician assistant for ongoing care. If your symptoms become worse or you do not improve as expected and you are unable to reach your usual health care provider, you should return to the Emergency Department. We are available 24 hours a day. HARJIT ASENCIO I has been given the following list of patient education materials, prescriptions and follow-up instructions: Follow-up Instructions: With: Address: When: Peggy Nazario [address] [place] [address] Business (1) In 3 days In the event that this physician does not participate in your insurance network, please consult with your insurance company to find a nearby participating provider. Patient Education Materials: Tremor; Gastroesophageal Reflux Disease, Adult A MESSAGE TO ALL PATIENTS REGARDING OPIOIDS PRESCRIPTION OPIOIDS: WHAT YOU NEED TO KNOW Prescription opioids can be used to help relieve xxuzdlwj-vt-gylpnq pain and are often prescribed following a [...] be struggling with addiction, tell your health direct care worker and ask for guidance or call [facility]?S National Helpline at 8-558-677-YNSS. f Source: Department of (more content not included)... Normal [facility] HEMATOLOGYOrdered By: SYSTEM SYSTEM on 09-12-2023 [...] Normal 80.0 - 100.0 fL Remisol Heme Ramsey Absolute 0.6 E9/L Normal 0.2 - 1.0 [...] Remisol Heme Monitor Recordon 09-12-2023 Monitor Record [id number]# 1.00TIFF Normal [facility] Troponin 0 Hr.on 09-12-2023 Troponin 12.70 pg/mL Normal 10.10-27.10 [facility] Comment on above: Result Comment: The 95% CI (Confidence Interval) PPV (Positive Predictive Value) for myocardial infarction in females is 38 pg/mL, in males 51 pg/mL. The results should be used in conjunction with clinical conditions of myocardial infarction. (Access High Sensitivity Troponin I Instructions For Use, Marlys [place], March 2018) Performed By: #### 2 834854, 96975491, 0608319, 6889826, 3838977, 5660738 #### [facility] [address] [place] [address] U Drug Screenon 09-12-2023 U Amph Scr Negative Invalid Interpretation Code [facility] Comment on above: Performed By: #### 2 158757, 14743215, 1442967, 9685162, 4820268, 8530118 #### [facility] [address] [place] [address] U Hayley Scr Negative Invalid Interpretation Code [facility] Comment on above: Performed By: #### 2 120125, 69835611, 5474426, 3401018, 8935217, 5220840 #### [facility] [address] [place] [address] U Benzodia Scr Negative Invalid Interpretation Code [facility] Comment on above: Performed By: #### 2 362466, 61350686, 7648118, 1326237, 8062646, 0757898 #### [facility] [address] [place] [address] U Cannab Scr Negative Invalid Interpretation Code [facility] Comment on above: Performed By: #### 2 705974, 29707152, 7974866, 9031973, 2475668, 7720633 #### [facility] [address] [place] [address] U Cocaine Scr Negative Invalid Interpretation Code [facility] Comment on above: Performed By: #### 2 043909, 18387028, 1638652, 3348361, 0991869, 2099617 #### [facility] [address] [place] [address] U Opiate Scr Negative Invalid Interpretation Code [facility] Comment on above: Performed By: #### 2 780030, 30939494, 5131603, 1786547, 2509270, 6062504 #### [facility] [address] [place] [address] U PCP Scr Negative Invalid Interpretation Code [facility] Comment on above: Performed By: #### 2 270321, 82275412, 1788705, 7132583, 9763017, 3587954 #### [facility] [address] [place] [address] UA With Cult Reflexon 2023 Bilirubin Ql (U) Negative Normal Negative [facility] Comment on above: Performed By: #### 1 7837326 #### [facility] [address] [place] [address] Clarity (U) CLEAR Normal Clear [facility] Comment on above: Performed By: #### 1 2194565 #### [facility] [address] [place] [address] Color (U) STRAW Invalid Interpretation Code [facility] Comment on above: Performed By: #### 1 8316099 #### [facility] [address] [place] [address] Epithelial cells.squamous LM.HPF (Urine sed) [#/Area] 0-2 Normal 0-2 [facility] Comment on above: Performed By: #### 1 3003044 #### [facility] [address] [place] [address] Glucose Test strip (U) [Mass/Vol] Negative Normal Negative [facility] Comment on above: Performed By: #### 1 5649360 #### [facility] [address] [place] [address] Hemoglobin Ql (U) 1+ Abnormal Negative [facility] Comment on above: Performed By: #### 1 8864870 #### [facility] [address] [place] [address] Ketones (U) [Mass/Vol] Negative Normal Negative [facility] Comment on above: Performed By: #### 1 8263947 #### [facility] [address] [place] [address] [place].plasma/Lithiu m.RBC (Bld) [Mass ratio] 0-3 Normal 0-3 [facility] Comment on above: Performed By: #### 1 4496799 #### [facility] [address] [place] [address] Nitrite Ql (U) Negative Normal Negative [facility] Comment on above: Performed By: #### 1 1187344 #### [facility] [address] [place] [address] pH (U) 7.0 [pH] Invalid Interpretation Code 5.0-9.0 [facility] Comment on above: Performed By: #### 1 3607813 #### [facility] [address] [place] [address] Protein (U) [Mass/Vol] Negative Normal Negative [facility] Comment on above: Performed By: #### 1 6398064 #### [facility] [address] [place] [address] Specific gravity (U) [Rel density] <=1.005 Invalid Interpretation Code 1.005-1.030 [facility] Comment on above: Performed By: #### 1 6069161 #### [facility] [address] [place] [address] Type of Urine collection method Clean Catch Normal [facility] Comment on above: Performed By: #### 1 6512524 #### [facility] [address] [place] [address] Urobilinogen Qn (U) 0.2 {Judith'U}/dL Normal 0.0-1.0 [facility] Comment on above: Performed By: #### 1 1390352 #### [facility] [address] [place] [address] WBC Auto Ql (U) TRACE Abnormal Negative [facility] Comment on above: Performed By: #### 1 0414697 #### [facility] [address] [place] [address] WBC LM.HPF (Urine sed) [#/Area] 0-5 Normal 0-5 [facility] Comment on above: Performed By: #### 1 2863500 #### [facility] [address] [place] [id number] URINALYSISOrdered By: Ethan Frost on 09-12-2023 Bilirubin Ql (U) Negative (09/12/23 4:53 AM) Normal Negative FT UA Auto SS Clarity (U) Clear (09/12/23 4:53 AM) Normal Clear FT UA Auto SS Color (U) STRAW Invalid [...] AM) Normal Negative [facility] UA Auto SS [place].plasma/Lithiu m.RBC (Bld) [Mass ratio] 0-3 /HPF Normal 0-3/HPF [facility] [place] Auto SS Nitrite Ql (U) Negative (09/12/23 4:53 AM) Normal Negative [facility] [place]A Auto SS pH (U) 7.0 *NA* (09/12/23 4:53 AM) Invalid Interpretation Code 5.0 - 9.0 [facility] [place]A Auto SS Protein (U) [Mass/Vol] Negative (09/12/23 4:53 AM) Normal Negative [facility] [place] UA Auto SS Specific gravity (U) [Rel density] <=1.005 *NA* (09/12/23 4:53 AM) Invalid Interpretation Code 1.005 - 1.030 [facility] [place]A Auto SS UA Spec Desc Clean Catch (09/12/23 4:53 AM) Normal [facility] [place] UA Auto SS Urobilinogen Qn (U) 0.9070989 {Judith'U}/dL Normal 0.0 - 1.0 EU/dL [facility] [place]A Auto SS WBC Auto Ql (U) Trace *ABN* (09/12/23 4:53 AM) Invalid Interpretation Code Negative [facility] [place]A Auto SS WBC LM.HPF (Urine sed) [#/Area] 0-5 /HPF Normal 0-5/HPF [facility] [place]A Auto SS XR Chest Single Viewon [...] mGy = na DAP = na Normal [facility] eGFRon 09-12-2023 eGFR 66 mL/min/1.73 m2 Normal >=59 [facility] Comment on above: Order Comment: Order Added by Discern Expert. Performed By: #### 2 154697, 71484273, 3883898, 1429660, 4623484, 7495584 #### [facility] [address] [place] [address] CNPNon 09-07-2023 CNPN Normal [facility] CNPNon 09-01-2023 CNPN Normal [facility] CBC panel Auto (Bld)on 08-31 Erythrocyte distribution width (RBC) [Ratio] 12.9 % Normal 11.5-15.0 [facility] Comment on above: Order Comment: Speci men Type: BLOOD SPECIMENOrdering Facility: [facility] Address: [address] [place] [address] Performed By: #### 5 8410-2 ####[facility] LABCLIA [id number] [place] [address] [place] Hematocrit (Bld) [Volume fraction] 36.1 % Normal 36.0-46.0 [facility] Comment on above: Order Comment: Speci men Type: BLOOD SPECIMENOrdering Facility: [facility] Address: [address] [place] [address] Performed By: #### 5 8410-2 ####[facility] LABCLIA [id number] [place] [address] [place] Hemoglobin (Bld) [Mass/Vol] 11.9 g/dL Normal 11.5-15.5 [facility] Comment on above: Order Comment: Speci men Type: BLOOD SPECIMENOrdering Facility: [facility] Address: [address] [place] [address] Performed By: #### 5 8410-2 ####[facility] LABCLIA [id number] [place] [address] [place] MCH (RBC) [Entitic mass] 29.5 pg Normal 26.0-34.0 [facility] Comment on above: Order Comment: Speci men Type: BLOOD SPECIMENOrdering Facility: [facility] Address: [address] [place] [address] Performed By: #### 5 8410-2 ####[facility] [id number] [place] [address] [place] MCHC (RBC) [Mass/Vol] 33.0 g/dL Normal 30.5-36.0 [facility] Comment on above: Order Comment: Speci men Type: BLOOD SPECIMENOrdering Facility: [facility] Address: [address] [place] [address] Performed By: #### 5 8410-2 ####[facility] [id number] [place] [address] [place] MCV (RBC) [Entitic vol] 89.4 fL Normal 80.0-100.0 [facility] Comment on above: Order Comment: Speci men Type: BLOOD SPECIMENOrdering Facility: [facility] Address: [address] [place] [address] Performed By: #### 5 8410-2 ####[facility] [id number] [place] [address] [place] Nucleated RBC (Bld) [#/Vol] 10*3/uL Normal <0.01 [facility] Comment on above: Order Comment: Speci men Type: BLOOD SPECIMENOrdering Facility: [facility] Address: [address] [place] [address] Performed By: #### 5 8410-2 ####[facility] [id number] [place] [address] [place] Platelet mean volume (Bld) [Entitic vol] 10.2 fL Normal 9.0-12.7 [facility] Comment on above: Order Comment: Speci men Type: BLOOD SPECIMENOrdering Facility: [facility] Address: [address] [place] [address] Performed By: #### 5 8410-2 ####[facility] LABCLIA [id number] [address] [address] [place] Platelets (Bld) [#/Vol] 175 10*3/uL Normal 150-400 [facility] Comment on above: Order Comment: Speci men Type: BLOOD SPECIMENOrdering Facility: [facility] Address: [address] [place] [address] Performed By: #### 5 8410-2 ####[facility] LABIA [id number] [place] [address] [place] RBC (Bld) [#/Vol] 4.04 10*6/uL Normal 3.90-5.20 [facility] Comment on above: Order Comment: Speci men Type: BLOOD SPECIMENOrdering Facility: [facility] Address: [address] [place] [address] Performed By: #### 5 8410-2 ####[facility] LABIA [id number] [place] [address] [place] WBC (Bld) [#/Vol] 6.11 10*3/uL Normal 3.70-11.00 [facility] Comment on above: Order Comment: Speci men Type: BLOOD SPECIMENOrdering Facility: [facility] Address: [address] [place] [address] Performed By: #### 5 8410-2 ####[facility] LABIA [id number] [place] [id number] [place] CNDSon 08-31-2023 CNDS Normal [facility] Comprehensive metabolic 2000 panelon 08-31-2023 Albumin [Mass/Vol] 3.5 g/dL Low 3.9-4.9 [facility] Comment on above: Order Comment: Speci men Type: BLOOD SPECIMENOrdering Facility: [facility] Address: [address] [place] [address] Performed By: #### 1 9123-9, 28184-6 ####[facility] LABCLIA [id number] [place] [id number] [place] ALP [Catalytic activity/Vol] 52 U/L Normal 34-123 [facility] Comment on above: Order Comment: Speci men Type: BLOOD SPECIMENOrdering Facility: [facility] Address: [address] [place] [address] Performed By: #### 1 9123-9, ####[facility] LABCLIA [id number] [place] [address] [place] ALT [Catalytic activity/Vol] 24 U/L Normal 7-38 [facility] Comment on above: Order Comment: Speci men Type: BLOOD SPECIMENOrdering Facility: [facility] Address: [address] [place] [address] Performed By: #### 1 9123-9, ####[facility] LABCLIA [id number] [place] [address] [place] Anion gap [Moles/Vol] 9 mmol/L Normal 9-18 [facility] Comment on above: Order Comment: Speci men Type: BLOOD SPECIMENOrdering Facility: [facility] Address: [address] [place] [address] Performed By: #### 1 9123-9, ####[facility] LABCLIA [id number] [place] [address] [place] AST [Catalytic activity/Vol] 20 U/L Normal 13-35 [facility] Comment on above: Order Comment: Speci men Type: BLOOD SPECIMENOrdering Facility: [facility] Address: [address] [place] [address] Performed By: #### 1 9123-9, 50693-2 ####[facility] LABCLIA [id number] [place] [id number] [place] Bilirubin [Mass/Vol] 0.5 mg/dL Normal 0.2-1.3 [facility] Comment on above: Order Comment: Speci men Type: BLOOD SPECIMENOrdering Facility: [facility] Address: [address] [place] [address] Performed By: #### 1 9123-9, ####[facility] LABCLIA [id number] [address] [address] [place] Calcium [Mass/Vol] 9.2 mg/dL Normal 8.5-10.2 [facility] Comment on above: Order Comment: Speci men Type: BLOOD SPECIMENOrdering Facility: [facility] Address: [address] [place] [address] Performed By: #### 1 9123-9, ####[facility] LABCLIA [id number] [place] [address] [place] Chloride [Moles/Vol] 103 mmol/L Normal 97-105 [facility] Comment on above: Order Comment: Speci men Type: BLOOD SPECIMENOrdering Facility: [facility] Address: [address] [place] [address] Performed By: #### 1 239, ####[facility] LABCLIA [id number] [place] [address] [place] CO2 [Moles/Vol] 25 mmol/L Normal 22-30 [facility] Comment on above: Order Comment: Speci men Type: BLOOD SPECIMENOrdering Facility: [facility] Address: [address] [place] [address] Performed By: #### 1 23-9, ####[facility] LABCLIA [id number] [place] [address] [place] Creatinine [Mass/Vol] 0.90 mg/dL Normal 0.58-0.96 [facility] Comment on above: Order Comment: Speci men Type: BLOOD SPECIMENOrdering Facility: [facility] Address: [address] [place] [address] Performed By: #### 1 9123-9, 90458-9 ####[facility] LABCLIA [id number] [address] [place] Creatinine and Glomerular filtration rate.predicted panel (S/P/Bld) 67 mL/min/1.73m??? Normal >=60 [facility] Comment on above: Order Comment: Nichole becerra Type: BLOOD SPECIMENOrdering Facility: [facility] Address: [address] [place] [address] Result Comment: Shelley mated Glomerular Filtration Rate [...] actual GFR. Performed By: #### 1 9123-9, 87527-7 ####[facility] LABCLIA [id number] [place] [address] [place] Glucose [Mass/Vol] 85 mg/dL Normal 74-99 [facility] Comment on above: Order Comment: Nichole becerra Type: BLOOD SPECIMENOrdering Facility: [facility] Address: [address] [place] [address] Result Comment: The [place] Diabetes Association (ADA) provides guidance for cutoff [...] Standards of Medical Care in Diabetes 2016, [place] [employer]. Diabetes Care. 2016.39(Suppl 1). Performed By: #### 1 9123-9, 61751-8 ####[facility] LABCLIA [id number] [address] [address] [place] Potassium [Moles/Vol] 4.3 mmol/L Normal 3.7-5.1 [facility] Comment on above: Order Comment: Speci men Type: BLOOD SPECIMENOrdering Facility: [facility] Address: [address] [place] [address] Performed By: #### 1 9123-9, ####[facility] LABCLIA [id number] [place] [address] [place] Protein [Mass/Vol] 5.9 g/dL Low 6.3-8.0 [facility] Comment on above: Order Comment: Speci men Type: BLOOD SPECIMENOrdering Facility: [facility] Address: [address] [place] [address] Performed By: #### 1 9123-9, ####[facility] LABIA [id number] [place] [address] [place] Sodium [Moles/Vol] 137 mmol/L Normal 136-144 [facility] Comment on above: Order Comment: Speci men Type: BLOOD SPECIMENOrdering Facility: [facility] Address: [address] [place] [address] Performed By: #### 1 9123-9, 53409-5 ####[facility] LABCLIA [id number] [place] [address] [place] Urea nitrogen [Mass/Vol] 16 mg/dL Normal 7-21 [facility] Comment on above: Order Comment: Speci men Type: BLOOD SPECIMENOrdering Facility: [facility] Address: [address] [place] [address] Performed By: #### 1 9123-9, 48867-8 ####[facility] LABCLIA [id number] [place] [id number] [place] Magnesium SerPl-mCncon 08-31 Magnesium [Mass/Vol] 2.2 mg/dL Normal 1.7-2.3 [facility] Comment on above: Order Comment: Speci men Type: BLOOD SPECIMENOrdering Facility: [facility] Address: [address] [place] [address] Performed By: #### 1 9123-9, 26442-4 ####[facility] LABCLIA [id number] [place] [address] [place] NUTRITIONon 08-31-2023 NUTRITION Normal [facility] PT EDon 08-31-2023 PT ED Normal [facility] PT ED Normal [facility] US FEMALE PELVIS TRANSABD LT Don 08-31-2023 US FEMALE PELVIS TRANSABD LTD Normal [facility] FEMALE PELVIS TRANSVAGon 08-31-2023 FEMALE PELVIS TRANSVAG Normal [facility] CBC panel Auto (Bld)on 08-30 Erythrocyte distribution width (RBC) [Ratio] 13.1 % Normal 11.5-15.0 [facility] Comment on above: Order Comment: Speci men Type: BLOOD SPECIMENOrdering Facility: [facility] Address: [address] [place] [address] Performed By: #### 5 8410-2 ####[facility] LABCLIA [id number] [place] [address] [place] Hematocrit (Bld) [Volume fraction] 38.9 % Normal 36.0-46.0 [facility] Comment on above: Order Comment: Speci men Type: BLOOD SPECIMENOrdering Facility: [facility] Address: [address] [place] [address] Performed By: #### 5 8410-2 ####[facility] LABCLIA [id number] [place] [address] [place] Hemoglobin (Bld) [Mass/Vol] 12.6 g/dL Normal 11.5-15.5 [facility] Comment on above: Order Comment: Speci men Type: BLOOD SPECIMENOrdering Facility: [facility] Address: [address] [place] [address] Performed By: #### 5 8410-2 ####[facility] LABIA [id number] [place] [address] [place] MCH (RBC) [Entitic mass] 29.9 pg Normal 26.0-34.0 [facility] Comment on above: Order Comment: Speci men Type: BLOOD SPECIMENOrdering Facility: [facility] Address: [address] [place] [address] Performed By: #### 5 8410-2 ####[facility] LABIA [id number] [place] [address] [place] MCHC (RBC) [Mass/Vol] 32.4 g/dL Normal 30.5-36.0 [facility] Comment on above: Order Comment: Speci men Type: BLOOD SPECIMENOrdering Facility: [facility] Address: [address] [place] [address] Performed By: #### 5 8410-2 ####[facility] LABIA [id number] [place] [address] [place] MCV (RBC) [Entitic vol] 92.2 fL Normal 80.0-100.0 [facility] Comment on above: Order Comment: Speci men Type: BLOOD SPECIMENOrdering Facility: [facility] Address: [address] [place] [address] Performed By: #### 5 8410-2 ####[facility] LABCLIA [id number] [place] [address] [place] Nucleated RBC (Bld) [#/Vol] 10*3/uL Normal <0.01 [facility] Comment on above: Order Comment: Speci men Type: BLOOD SPECIMENOrdering Facility: [facility] Address: [address] [place] [address] Performed By: #### 5 8410-2 ####[facility] LABCLIA [id number] [place] [address] [place] Platelet mean volume (Bld) [Entitic vol] 10.4 fL Normal 9.0-12.7 [facility] Comment on above: Order Comment: Speci men Type: BLOOD SPECIMENOrdering Facility: [facility] Address: [address] [place] [address] Performed By: #### 5 8410-2 ####[facility] LABCLIA [id number] [place] [address] [place] Platelets (Bld) [#/Vol] 185 10*3/uL Normal 150-400 [facility] Comment on above: Order Comment: Speci men Type: BLOOD SPECIMENOrdering Facility: [facility] Address: [address] [place] [address] Performed By: #### 5 8410-2 ####[facility] LABCLIA [id number] [place] [address] [place] RBC (Bld) [#/Vol] 4.22 10*6/uL Normal 3.90-5.20 [facility] Comment on above: Order Comment: Speci men Type: BLOOD SPECIMENOrdering Facility: [facility] Address: [address] [place] [address] Performed By: #### 5 8410-2 ####[facility] LABIA [id number] [place] [address] [place] WBC (Bld) [#/Vol] 6.51 10*3/uL Normal 3.70-11.00 [facility] Comment on above: Order Comment: Speci men Type: BLOOD SPECIMENOrdering Facility: [facility] Address: [address] [place] [address] Performed By: #### 5 8410-2 ####[facility] LABCLIA [id number] [place] [address] [place] CNCOon 08-30-2023 CNCO Letter Text Normal [facility] CONSULT PROGon 08-30-2023 CONSULT PROG Normal [facility] Comprehensive metabolic 2000 panelon 08-30-2023 Albumin [Mass/Vol] 3.9 g/dL Normal 3.9-4.9 [facility] Comment on above: Order Comment: Speci men Type: BLOOD SPECIMENOrdering Facility: [facility] Address: [address] [place] [address] Performed By: #### 1 9123-9, 31682-7 ####[facility] LABCLIA [id number] [place] [address] [place] ALP [Catalytic activity/Vol] 65 U/L Normal 34-123 [facility] Comment on above: Order Comment: Speci men Type: BLOOD SPECIMENOrdering Facility: [facility] Address: [address] [place] [address] Performed By: #### 1 9123-9, 21466-9 ####[facility] LABCLIA [id number] [place] [address] [place] ALT [Catalytic activity/Vol] 28 U/L Normal 7-38 [facility] Comment on above: Order Comment: Speci men Type: BLOOD SPECIMENOrdering Facility: [facility] Address: [address] [place] [address] Performed By: #### 1 9123-9, 31565-5 ####[facility] LABCLIA [id number] [place] [address] [place] Anion gap [Moles/Vol] 9 mmol/L Normal 9-18 [facility] Comment on above: Order Comment: Speci men Type: BLOOD SPECIMENOrdering Facility: [facility] Address: [address] [place] [address] Performed By: #### 1 9123-9, 74240-5 ####[facility] LABCLIA [id number] [place] [id number] [place] AST [Catalytic activity/Vol] 24 U/L Normal 13-35 [facility] Comment on above: Order Comment: Speci men Type: BLOOD SPECIMENOrdering Facility: [facility] Address: [address] [place] [address] Performed By: #### 1 9123-9, ####[facility] LABCLIA [id number] [address] [address] [place] Bilirubin [Mass/Vol] 0.5 mg/dL Normal 0.2-1.3 [facility] Comment on above: Order Comment: Speci men Type: BLOOD SPECIMENOrdering Facility: [facility] Address: [address] [place] [address] Performed By: #### 1 9123-9, ####[facility] LABCLIA [id number] [place] [address] [place] Calcium [Mass/Vol] 9.3 mg/dL Normal 8.5-10.2 [facility] Comment on above: Order Comment: Speci men Type: BLOOD SPECIMENOrdering Facility: [facility] Address: [address] [place] [address] Performed By: #### 1 9123-9, ####[facility] LABCLIA [id number] [place] [address] [place] Chloride [Moles/Vol] 103 mmol/L Normal 97-105 [facility] Comment on above: Order Comment: Speci men Type: BLOOD SPECIMENOrdering Facility: [facility] Address: [address] [place] [address] Performed By: #### 1 9123-9, ####[facility] LABCLIA [id number] [place] [address] [place] CO2 [Moles/Vol] 25 mmol/L Normal 22-30 [facility] Comment on above: Order Comment: Speci men Type: BLOOD SPECIMENOrdering Facility: [facility] Address: [address] [place] [address] Performed By: #### 1 9123-9, ####[facility] LABCLIA [id number] [place] [address] [place] Creatinine [Mass/Vol] 1.11 mg/dL High 0.58-0.96 [facility] Comment on above: Order Comment: Speci men Type: BLOOD SPECIMENOrdering Facility: [facility] Address: [address] [place] [address] Performed By: #### 1 9123-9, ####[facility] LABIA [id number] [place] [address] [place] Creatinine and Glomerular filtration rate.predicted panel (S/P/Bld) 52 mL/min/1.73m??? Low >=60 [facility] Comment on above: Order Comment: [facility] Type: BLOOD SPECIMENOrdering Facility: [facility] Address: [address] [place] [address] Result Comment: Shelley mated Glomerular Filtration Rate [...] actual GFR. Performed By: #### 1 9123-9, ####[facility] LABIA [id number] [place] [address] [place] Glucose [Mass/Vol] 149 mg/dL High 74-99 [facility] Comment on above: Order Comment: Speci men Type: BLOOD SPECIMENOrdering Facility: [facility] Address: [address] [place] [address] Result Comment: The [place] [employer] (ADA) provides guidance for cutoff [...] Standards of Medical Care in Diabetes 2016, [place] [employer]. Diabetes Care. 2016.39(Suppl 1). Performed By: #### 1 9123-9, ####[facility] LABCLIA [id number] [place] [address] [place] Potassium [Moles/Vol] 5.0 mmol/L Normal 3.7-5.1 [facility] Comment on above: Order Comment: Speci men Type: BLOOD SPECIMENOrdering Facility: [facility] Address: [address] [place] [address] Performed By: #### 1 9123-9, ####[facility] LABCLIA [id number] [place] [address] [place] Protein [Mass/Vol] 6.3 g/dL Normal 6.3-8.0 [facility] Comment on above: Order Comment: Césari mariam Type: BLOOD SPECIMENOrdering Facility: [facility] Address: [address] [place] [address] Performed By: #### 1 9123-9, ####[facility] LABCLIA [id number] [place] [address] [place] Sodium [Moles/Vol] 137 mmol/L Normal 136-144 [facility] Comment on above: Order Comment: Speci men Type: BLOOD SPECIMENOrdering Facility: [facility] Address: [address] [place] [address] Performed By: #### 1 9123-9, ####[facility] LABCLIA [id number] [place] [id number] [place] Urea nitrogen [Mass/Vol] 19 mg/dL Normal 7-21 [facility] Comment on above: Order Comment: Speci men Type: BLOOD SPECIMENOrdering Facility: [facility] Address: [address] [place] [address] Performed By: #### 1 9123-9, 73820-7 ####[facility] LABCLIA [id number] [place] [address] [place] Magnesium SerPl-mCncon 08-30 Magnesium [Mass/Vol] 2.2 mg/dL Normal 1.7-2.3 [facility] Comment on above: Order Comment: Speci men Type: BLOOD SPECIMENOrdering Facility: [facility] Address: [address] [place] [address] Performed By: #### 1 9123-9, 63562-0 ####[facility] LABCLIA [id number] [place] [address] [place] NURSING PROGon 08-30-2023 NURSING PROG Normal [facility] NUTRITIONon 08-30-2023 NUTRITION Normal [facility] CBC panel Auto (Bld)on 08-29 Erythrocyte distribution width (RBC) [Ratio] 13.1 % Normal 11.5-15.0 [facility] Comment on above: Order Comment: Speci men Type: BLOOD SPECIMENOrdering Facility: [facility] Address: [address] [place] [address] Performed By: #### 5 8410-2 ####[facility] LABCLIA [id number] [address] [place] Hematocrit (Bld) [Volume fraction] 39.4 % Normal 36.0-46.0 [facility] Comment on above: Order Comment: Speci men Type: BLOOD SPECIMENOrdering Facility: [facility] Address: [address] [place] [address] Performed By: #### 5 8410-2 ####[facility] LABCLIA [id number] [place] [address] [place] Hemoglobin (Bld) [Mass/Vol] 13.1 g/dL Normal 11.5-15.5 [facility] Comment on above: Order Comment: Speci men Type: BLOOD SPECIMENOrdering Facility: [facility] Address: [address] [place] [address] Performed By: #### 5 8410-2 ####[facility] LABCLIA [id number] [place] [address] [place] MCH (RBC) [Entitic mass] 30.0 pg Normal 26.0-34.0 [facility] Comment on above: Order Comment: Speci men Type: BLOOD SPECIMENOrdering Facility: [facility] Address: [address] [place] [address] Performed By: #### 5 8410-2 ####[facility] LABIA [id number] [place] [address] [place] MCHC (RBC) [Mass/Vol] 33.2 g/dL Normal 30.5-36.0 [facility] Comment on above: Order Comment: Speci men Type: BLOOD SPECIMENOrdering Facility: [facility] Address: [address] [place] [address] Performed By: #### 5 8410-2 ####[facility] LABIA [id number] [place] [address] [place] MCV (RBC) [Entitic vol] 90.4 fL Normal 80.0-100.0 [facility] Comment on above: Order Comment: Speci men Type: BLOOD SPECIMENOrdering Facility: [facility] Address: [address] [place] [address] Performed By: #### 5 8410-2 ####[facility] LABIA [id number] [place] [address] [place] Nucleated RBC (Bld) [#/Vol] 10*3/uL Normal <0.01 [facility] Comment on above: Order Comment: Speci men Type: BLOOD SPECIMENOrdering Facility: [facility] Address: [address] [place] [address] Performed By: #### 5 8410-2 ####[facility] LABIA [id number] [place] [address] [place] Platelet mean volume (Bld) [Entitic vol] 10.5 fL Normal 9.0-12.7 [facility] Comment on above: Order Comment: Speci men Type: BLOOD SPECIMENOrdering Facility: [facility] Address: [address] [place] [address] Performed By: #### 5 8410-2 ####[facility] LABIA [id number] [place] [address] [place] Platelets (Bld) [#/Vol] 192 10*3/uL Normal 150-400 [facility] Comment on above: Order Comment: Speci men Type: BLOOD SPECIMENOrdering Facility: [facility] Address: [address] [place] [address] Performed By: #### 5 8410-2 ####[facility] LABIA [id number] [place] [address] [place] RBC (Bld) [#/Vol] 4.36 10*6/uL Normal 3.90-5.20 [facility] Comment on above: Order Comment: Speci men Type: BLOOD SPECIMENOrdering Facility: [facility] Address: [address] [place] [address] Performed By: #### 5 8410-2 ####[facility] LABIA [id number] [place] [address] [place] WBC (Bld) [#/Vol] 8.00 10*3/uL Normal 3.70-11.00 [facility] Comment on above: Order Comment: Speci men Type: BLOOD SPECIMENOrdering Facility: [facility] Address: [address] [place] [address] Performed By: #### 5 8410-2 ####[facility] LABCLIA [id number] [address] [address] [place] FLANK WO IVCONon 08-29-[address] FLANK WO IVCON Invalid Interpretation Code [facility] Comprehensive metabolic 2000 panelon 08-29-2023 Albumin [Mass/Vol] 3.9 g/dL Normal 3.9-4.9 [facility] Comment on above: Order Comment: Speci men Type: BLOOD SPECIMENOrdering Facility: [facility] Address: [address] [place] [address] Performed By: #### 2 432-8, ####[facility] LABCLIA [id number] [place] [address] [place] ALP [Catalytic activity/Vol] 58 U/L Normal 34-123 [facility] Comment on above: Order Comment: Speci men Type: BLOOD SPECIMENOrdering Facility: [facility] Address: [address] [place] [address] Performed By: #### 2 4322-8, ####[facility] LABCLIA [id number] [place] [address] [place] ALT [Catalytic activity/Vol] 33 U/L Normal 7-38 [facility] Comment on above: Order Comment: Speci men Type: BLOOD SPECIMENOrdering Facility: [facility] Address: [address] [place] [address] Performed By: #### 2 4328, ####[facility] LABCLIA [id number] [place] [id number] [place] Anion gap [Moles/Vol] 10 mmol/L Normal 9-18 [facility] Comment on above: Order Comment: Speci men Type: BLOOD SPECIMENOrdering Facility: [facility] Address: [address] [place] [address] Performed By: #### 2 4323-8, ####[facility] LABCLIA [id number] [place] [address] [place] AST [Catalytic activity/Vol] 25 U/L Normal 13-35 [facility] Comment on above: Order Comment: Speci men Type: BLOOD SPECIMENOrdering Facility: [facility] Address: [address] [place] [address] Performed By: #### 2 4323-8, ####[facility] LABCLIA [id number] [place] [address] [place] Bilirubin [Mass/Vol] 0.7 mg/dL Normal 0.2-1.3 [facility] Comment on above: Order Comment: Speci men Type: BLOOD SPECIMENOrdering Facility: [facility] Address: [address] [place] [address] Performed By: #### 2 4323-8, ####[facility] LABCLIA [id number] [place] [address] [place] Calcium [Mass/Vol] 9.0 mg/dL Normal 8.5-10.2 [facility] Comment on above: Order Comment: Speci men Type: BLOOD SPECIMENOrdering Facility: [facility] Address: [address] [place] [address] Performed By: #### 2 4323-8, ####[facility] LABCLIA [id number] [place] [address] [place] Chloride [Moles/Vol] 101 mmol/L Normal 97-105 [facility] Comment on above: Order Comment: Speci men Type: BLOOD SPECIMENOrdering Facility: [facility] Address: [address] [place] [address] Performed By: #### 2 4323-8, ####[facility] LABCLIA [id number] [place] [id number] [place] CO2 [Moles/Vol] 25 mmol/L Normal 22-30 [facility] Comment on above: Order Comment: Speci men Type: BLOOD SPECIMENOrdering Facility: [facility] Address: [address] [place] [address] Performed By: #### 2 4323-8, ####[facility] LABCLIA [id number] [place] [address] [place] Creatinine [Mass/Vol] 0.87 mg/dL Normal 0.58-0.96 [facility] Comment on above: Order Comment: Speci men Type: BLOOD SPECIMENOrdering Facility: [facility] Address: [address] [place] [address] Performed By: #### 2 4323-8, ####[facility] LABIA [id number] [place] [address] [place] Creatinine and Glomerular filtration rate.predicted panel (S/P/Bld) 70 mL/min/1.73m??? Normal >=60 [facility] Comment on above: Order Comment: Speci men Type: BLOOD SPECIMENOrdering Facility: [facility] Address: [address] [place] [address] Result Comment: Shelley mated Glomerular Filtration Rate [...] actual GFR. Performed By: #### 2 4323-8, ####[facility] LABIA [id number] [place] [address] [place] Glucose [Mass/Vol] 85 mg/dL Normal 74-99 [facility] Comment on above: Order Comment: Speci men Type: BLOOD SPECIMENOrdering Facility: [facility] Address: [address] [place] [address] Result Comment: The [place] Diabetes [employer] (ADA) provides guidance for cutoff [...] Standards of Medical Care in Diabetes 2016, [place] [employer]. Diabetes Care. 2016.39(Suppl 1). Performed By: #### 2 4323-03, ####[facility] LABCLIA [id number] [place] [address] [place] Potassium [Moles/Vol] 4.7 mmol/L Normal 3.7-5.1 [facility] Comment on above: Order Comment: Speci men Type: BLOOD SPECIMENOrdering Facility: [facility] Address: [address] [place] [address] Performed By: #### 2 4323-03, ####[facility] LABIA [id number] [place] [address] [place] Protein [Mass/Vol] 6.3 g/dL Normal 6.3-8.0 [facility] Comment on above: Order Comment: Speci men Type: BLOOD SPECIMENOrdering Facility: [facility] Address: [address] [place] [address] Performed By: #### 2 4323-03, ####[facility] LABIA [id number] [place] [id number] [place] Sodium [Moles/Vol] 136 mmol/L Normal 136-144 [facility] Comment on above: Order Comment: Speci men Type: BLOOD SPECIMENOrdering Facility: [facility] Address: [address] [place] [address] Performed By: #### 2 4323-03, ####[facility] LABCLIA [id number] [place] [id number] [place] Urea nitrogen [Mass/Vol] 15 mg/dL Normal 7-21 [facility] Comment on above: Order Comment: Speci men Type: BLOOD SPECIMENOrdering Facility: [facility] Address: [address] [place] [address] Performed By: #### 2 4323-8, 34802-6 ####[facility] LABCLIA [id number] [place] [id number] [place] DIGOXIN/LANOXINon 08-29-2023 Digoxin [Mass/Vol] 1.0 ng/mL Normal 0.6-1.2 [facility] Comment on above: Order Comment: Speci men Type: BLOOD SPECIMENOrdering Facility: [facility] Address: [address] [place] [address] Result Comment: Prov ided therapeutic concentrations are based on the 2008 ESC Guidelines for the Diagnosis and Treatment of Acute and Chronic Heart Failure.Reference ranges and high/low indicator flags are provided as general guidelines only. The treating physician must determine appropriate target levels/dosing based on the specific clinical situation. Performed By: #### D IG ####[facility] LABCLIA [id number] [place] [id number] [place] Magnesium SerPl-mCncon 08-29 Magnesium [Mass/Vol] 2.2 mg/dL Normal 1.7-2.3 [facility] Comment on above: Order Comment: Speci men Type: BLOOD SPECIMENOrdering Facility: [facility] Address: [address] [place] [address] Performed By: #### 2 4323-8, ####[facility] LABIA [id number] [place] [id number] [place] NUTRITIONon 08-29-2023 NUTRITION Normal [facility] THYROID PEROXIDASE ANTIBODY BLOODon 08-29-2023 TPO Ab Qn [IU]/mL Normal <5.6 [facility] Comment on above: Order Comment: Speci men Type: BLOOD SPECIMENOrdering Facility: [facility] Address: [address] [place] [address] Result Comment: Thyr oid Peroxidase Antibody test is used as an aid in diagnosis of autoimmune thyroid disease. Clinical correlation is required. Performed By: #### M ICRO ####[facility] LABCLIA [id number] [place] [address] [place] ANES POSTPROC EVALon [address] EV[address] Normal [facility] ANES PRE-OPon 08-28-2023 ANES PRE-OP Normal [facility] CASE MANAGEMon 08-28-2023 CASE MANAGEM Normal [facility] CBC panel Auto (Bld)on 08-28 Erythrocyte distribution width (RBC) [Ratio] 13.1 % Normal 11.5-15.0 [facility] Comment on above: Order Comment: Speci men Type: BLOOD SPECIMENOrdering Facility: [facility] Address: [address] [place] [address] Performed By: #### 5 8410-2 ####[facility] LABCLIA [id number] [place] [address] [place] Hematocrit (Bld) [Volume fraction] 37.8 % Normal 36.0-46.0 [facility] Comment on above: Order Comment: Speci men Type: BLOOD SPECIMENOrdering Facility: [facility] Address: [address] [place] [address] Performed By: #### 5 8410-2 ####[facility] LABCLIA [id number] [place] [id number] [place] Hemoglobin (Bld) [Mass/Vol] 12.3 g/dL Normal 11.5-15.5 [facility] Comment on above: Order Comment: Speci men Type: BLOOD SPECIMENOrdering Facility: [facility] Address: [address] [place] [address] Performed By: #### 5 8410-2 ####[facility] LABIA [id number] [place] [address] [place] MCH (RBC) [Entitic mass] 29.5 pg Normal 26.0-34.0 [facility] Comment on above: Order Comment: Speci men Type: BLOOD SPECIMENOrdering Facility: [facility] Address: [address] [place] [address] Performed By: #### 5 8410-2 ####[facility] LABIA [id number] [place] [address] [place] MCHC (RBC) [Mass/Vol] 32.5 g/dL Normal 30.5-36.0 [facility] Comment on above: Order Comment: Speci men Type: BLOOD SPECIMENOrdering Facility: [facility] Address: [address] [place] [address] Performed By: #### 5 8410-2 ####[facility] [id number] [place] [address] [place] MCV (RBC) [Entitic vol] 90.6 fL Normal 80.0-100.0 [facility] Comment on above: Order Comment: Speci men Type: BLOOD SPECIMENOrdering Facility: [facility] Address: [address] [place] [address] Performed By: #### 5 8410-2 ####[facility] [id number] [place] [address] [place] Nucleated RBC (Bld) [#/Vol] 10*3/uL Normal <0.01 [facility] Comment on above: Order Comment: Speci men Type: BLOOD SPECIMENOrdering Facility: [facility] Address: [address] [place] [address] Performed By: #### 5 8410-2 ####[facility] LABIA [id number] [place] [address] [place] Platelet mean volume (Bld) [Entitic vol] 10.4 fL Normal 9.0-12.7 [facility] Comment on above: Order Comment: Speci men Type: BLOOD SPECIMENOrdering Facility: [facility] Address: [address] [place] [address] Performed By: #### 5 8410-2 ####[facility] LABCLIA [id number] [place] [address] [place] Platelets (Bld) [#/Vol] 180 10*3/uL Normal 150-400 [facility] Comment on above: Order Comment: Speci men Type: BLOOD SPECIMENOrdering Facility: [facility] Address: [address] [place] [address] Performed By: #### 5 8410-2 ####[facility] LABCLIA [id number] [place] [address] [place] RBC (Bld) [#/Vol] 4.17 10*6/uL Normal 3.90-5.20 [facility] Comment on above: Order Comment: Speci men Type: BLOOD SPECIMENOrdering Facility: [facility] Address: [address] [place] [address] Performed By: #### 5 8410-2 ####[facility] LABIA [id number] [place] [address] [place] WBC (Bld) [#/Vol] 6.22 10*3/uL Normal 3.70-11.00 [facility] Comment on above: Order Comment: Speci men Type: BLOOD SPECIMENOrdering Facility: [facility] Address: [address] [place] [address] Performed By: #### 5 8410-2 ####[facility] LABIA [id number] [place] [address] [place] CNOVon 08-28-2023 CNOV Normal [facility] CONSULTon 08-28-2023 CONSULT Normal [facility] Comprehensive metabolic 2000 panelon 08-28-2023 Albumin [Mass/Vol] 3.5 g/dL Low 3.9-4.9 [facility] Comment on above: Order Comment: Speci men Type: BLOOD SPECIMENOrdering Facility: [facility] Address: [address] [place] [address] Performed By: #### 2 4323-8, 7 ####[facility] LABCLIA [id number] [place] [address] [place] ALP [Catalytic activity/Vol] 52 U/L Normal 34-123 [facility] Comment on above: Order Comment: Speci men Type: BLOOD SPECIMENOrdering Facility: [facility] Address: [address] [place] [address] Performed By: #### 2 4323-8, 7 ####[facility] LABCLIA [id number] [place] [address] [place] ALT [Catalytic activity/Vol] 31 U/L Normal 7-38 [facility] Comment on above: Order Comment: Speci men Type: BLOOD SPECIMENOrdering Facility: [facility] Address: [address] [place] [address] Performed By: #### 2 4323-8, 7 ####[facility] LABCLIA [id number] [place] [address] [place] Anion gap [Moles/Vol] 10 mmol/L Normal 9-18 [facility] Comment on above: Order Comment: Speci men Type: BLOOD SPECIMENOrdering Facility: [facility] Address: [address] [place] [address] Performed By: #### 2 4323-8, 7 ####[facility] LABCLIA [id number] [place] [address] [place] AST [Catalytic activity/Vol] 26 U/L Normal 13-35 [facility] Comment on above: Order Comment: Speci men Type: BLOOD SPECIMENOrdering Facility: [facility] Address: [address] [place] [address] Performed By: #### 2 4323-8, 7 ####[facility] LABCLIA [id number] [place] [address] [place] Bilirubin [Mass/Vol] 0.5 mg/dL Normal 0.2-1.3 [facility] Comment on above: Order Comment: Speci men Type: BLOOD SPECIMENOrdering Facility: [facility] Address: [address] [place] [address] Performed By: #### 2 4323-8, 7 ####[facility] LABCLIA [id number] [place] [address] [place] Calcium [Mass/Vol] 9.5 mg/dL Normal 8.5-10.2 [facility] Comment on above: Order Comment: Speci men Type: BLOOD SPECIMENOrdering Facility: [facility] Address: [address] [place] [address] Performed By: #### 2 432-8, 7 ####[facility] LABCLIA [id number] [place] [address] [place] Chloride [Moles/Vol] 106 mmol/L High 97-105 [facility] Comment on above: Order Comment: Speci men Type: BLOOD SPECIMENOrdering Facility: [facility] Address: [address] [place] [address] Performed By: #### 2 4323-8, 7 ####[facility] LABCLIA [id number] [place] [address] [place] CO2 [Moles/Vol] 24 mmol/L Normal 22-30 [facility] Comment on above: Order Comment: Speci men Type: BLOOD SPECIMENOrdering Facility: [facility] Address: [address] [place] [id number] Performed By: #### 2 4323-8, 3023-7 ####[facility] LABCLIA [id number] [place] Creatinine [Mass/Vol] 0.75 mg/dL Normal 0.58-0.96 [facility] Comment on above: Order Comment: Nichole becerra Type: BLOOD SPECIMENOrdering Facility: [facility] Address: [address] [place] [address] Performed By: #### 2 4323-8, 3024-7 ####[facility] LABIA [id number] [address] [facility] Creatinine and Glomerular filtration rate.predicted panel (S/P/Bld) 83 mL/min/1.73m??? Normal >=60 [facility] Comment on above: Order Comment: Nichole becerra Type: BLOOD SPECIMENOrdering Facility: [facility] Address: [address] [place] [address] Result Comment: Shelley mated Glomerular Filtration Rate [...] actual GFR. Performed By: #### 2 4323-8, 3024-7 ####[facility] LABIA [id number] [place] [address] [place] Glucose [Mass/Vol] 88 mg/dL Normal 74-99 [facility] Comment on above: Order Comment: Nichole becerra Type: BLOOD SPECIMENOrdering Facility: [facility] Address: [address] [place] [address] Result Comment: The [place] [employer] (ADA) provides guidance for cutoff [...] Standards of Medical Care in Diabetes 2016, [place] [employer]. Diabetes Care. 2016.39(Suppl 1). Performed By: #### 2 432-8, 3024-02 ####[facility] LABCLIA [id number] [place] [address] [place] Potassium [Moles/Vol] 4.6 mmol/L Normal 3.7-5.1 [facility] Comment on above: Order Comment: Speci men Type: BLOOD SPECIMENOrdering Facility: [facility] Address: [address] [place] [address] Performed By: #### 2 4328, 3024-02 ####[facility] LABCLIA [id number] [place] [address] [place] Protein [Mass/Vol] 5.9 g/dL Low 6.3-8.0 [facility] Comment on above: Order Comment: Speci men Type: BLOOD SPECIMENOrdering Facility: [facility] Address: [address] [place] [address] Performed By: #### 2 4328, 3024-02 ####[facility] LABCLIA [id number] [place] [address] [place] Sodium [Moles/Vol] 140 mmol/L Normal 136-144 [facility] Comment on above: Order Comment: Speci men Type: BLOOD SPECIMENOrdering Facility: [facility] Address: [address] [place] [address] Performed By: #### 2 4323-8, 3024-02 ####[facility] LABCLIA [id number] [place] [id number] [place] Urea nitrogen [Mass/Vol] 13 mg/dL Normal 7-21 [facility] Comment on above: Order Comment: Speci men Type: BLOOD SPECIMENOrdering Facility: [facility] Address: [address] [place] [address] Performed By: #### 2 4323-8, 3024-7 ####[facility] LABCLIA [id number] [place] [id number] [place] [id number] 08-28-2023 ECG01 Normal [facility] ECHO TRANSESOPHAGEALon 08-28 ECHO TRANSESOPHAGEAL Normal [facility] NURSING PROGon 08-28-2023 NURSING PROG Normal [facility] PT EDon 08-28-2023 PT ED Normal [facility] PT ED Normal [facility] T4 Free SerPl-mCncon 024 Free T4 [Mass/Vol] 1.1 ng/dL Normal 0.9-1.7 [facility] Comment on above: Order Comment: Speci men Type: BLOOD SPECIMENOrdering Facility: [facility] Address: [address] [place] [address] Performed By: #### 2 4323-8, 3027 ####[facility] LABIA [id number] [place] [address] [place] CBC panel Auto (Bld)on 08-27 Erythrocyte distribution width (RBC) [Ratio] 12.8 % Normal 11.5-15.0 [facility] Comment on above: Order Comment: Speci men Type: BLOOD SPECIMENOrdering Facility: [facility] Address: [address] [place] [address] Performed By: #### 5 8410-2 ####[facility] LABIA [id number] [place] [address] [place] Hematocrit (Bld) [Volume fraction] 38.9 % Normal 36.0-46.0 [facility] Comment on above: Order Comment: Speci men Type: BLOOD SPECIMENOrdering Facility: [facility] Address: [address] [place] [address] Performed By: #### 5 8410-2 ####[facility] LABCLIA [id number] [place] [address] [place] Hemoglobin (Bld) [Mass/Vol] 12.7 g/dL Normal 11.5-15.5 [facility] Comment on above: Order Comment: Speci men Type: BLOOD SPECIMENOrdering Facility: [facility] Address: [address] [place] [address] Performed By: #### 5 8410-2 ####[facility] LABCLIA [id number] [place] [address] [place] MCH (RBC) [Entitic mass] 29.4 pg Normal 26.0-34.0 [facility] Comment on above: Order Comment: Speci men Type: BLOOD SPECIMENOrdering Facility: [facility] Address: [address] [place] [address] Performed By: #### 5 8410-2 ####[facility] LABCLIA [id number] [place] [address] [place] MCHC (RBC) [Mass/Vol] 32.6 g/dL Normal 30.5-36.0 [facility] Comment on above: Order Comment: Speci men Type: BLOOD SPECIMENOrdering Facility: [facility] Address: [address] [place] [address] Performed By: #### 5 8410-2 ####[facility] LABIA [id number] [place] [address] [place] MCV (RBC) [Entitic vol] 90.0 fL Normal 80.0-100.0 [facility] Comment on above: Order Comment: Speci men Type: BLOOD SPECIMENOrdering Facility: [facility] Address: [address] [place] [address] Performed By: #### 5 8410-2 ####[facility] LABCLIA [id number] [place] [address] [place] Nucleated RBC (Bld) [#/Vol] 10*3/uL Normal <0.01 [facility] Comment on above: Order Comment: Speci men Type: BLOOD SPECIMENOrdering Facility: [facility] Address: [address] [place] [address] Performed By: #### 5 8410-2 ####[facility] LABCLIA [id number] [place] [address] [place] Platelet mean volume (Bld) [Entitic vol] 10.4 fL Normal 9.0-12.7 [facility] Comment on above: Order Comment: Speci men Type: BLOOD SPECIMENOrdering Facility: [facility] Address: [address] [place] [address] Performed By: #### 5 8410-2 ####[facility] LABIA [id number] [place] [address] [place] Platelets (Bld) [#/Vol] 143 10*3/uL Low 150-400 [facility] Comment on above: Order Comment: Speci men Type: BLOOD SPECIMENOrdering Facility: [facility] Address: [address] [place] [address] Performed By: #### 5 8410-2 ####[facility] LABIA [id number] [place] [address] [place] RBC (Bld) [#/Vol] 4.32 10*6/uL Normal 3.90-5.20 [facility] Comment on above: Order Comment: Speci men Type: BLOOD SPECIMENOrdering Facility: [facility] Address: [address] [place] [address] Performed By: #### 5 8410-2 ####[facility] LABCLIA [id number] [place] [address] [place] WBC (Bld) [#/Vol] 5.61 10*3/uL Normal 3.70-11.00 [facility] Comment on above: Order Comment: Speci men Type: BLOOD SPECIMENOrdering Facility: [facility] Address: [address] [place] [address] Performed By: #### 5 8410-2 ####[facility] LABCLIA [id number] [place] [address] [place] Comprehensive metabolic 2000 panelon 08-27-2023 Albumin [Mass/Vol] 3.6 g/dL Low 3.9-4.9 [facility] Comment on above: Order Comment: Speci men Type: BLOOD SPECIMENOrdering Facility: [facility] Address: [address] [place] [address] Performed By: #### 2 4323-8, 6-3 ####[facility] LABCLIA [id number] [place] [address] [place] ALP [Catalytic activity/Vol] 59 U/L Normal 34-123 [facility] Comment on above: Order Comment: Speci men Type: BLOOD SPECIMENOrdering Facility: [facility] Address: [address] [place] [address] Performed By: #### 2 4323-8, 6-3 ####[facility] LABCLIA [id number] [place] [address] [place] ALT [Catalytic activity/Vol] 29 U/L Normal 7-38 [facility] Comment on above: Order Comment: Speci men Type: BLOOD SPECIMENOrdering Facility: [facility] Address: [address] [place] [address] Performed By: #### 2 4323-8, 6-3 ####[facility] LABCLIA [id number] [place] [id number] [place] Anion gap [Moles/Vol] 8 mmol/L Low 9-18 [facility] Comment on above: Order Comment: Speci men Type: BLOOD SPECIMENOrdering Facility: [facility] Address: [address] [place] [address] Performed By: #### 2 4323-8, 6-3 ####[facility] LABCLIA [id number] [place] [address] [place] AST [Catalytic activity/Vol] 27 U/L Normal 13-35 [facility] Comment on above: Order Comment: Speci men Type: BLOOD SPECIMENOrdering Facility: [facility] Address: [address] [place] [address] Performed By: #### 2 4323-8, 3016-3 ####[facility] LABCLIA [id number] [place] [address] [place] Bilirubin [Mass/Vol] 0.5 mg/dL Normal 0.2-1.3 [facility] Comment on above: Order Comment: Speci men Type: BLOOD SPECIMENOrdering Facility: [facility] Address: [address] [place] [address] Performed By: #### 2 4323-8, 3015-3 ####[facility] LABCLIA [id number] [place] [address] [place] Calcium [Mass/Vol] 9.1 mg/dL Normal 8.5-10.2 [facility] Comment on above: Order Comment: Speci men Type: BLOOD SPECIMENOrdering Facility: [facility] Address: [address] [place] [address] Performed By: #### 2 4323-8, 6-3 ####[facility] LABCLIA [id number] [place] [address] [place] Chloride [Moles/Vol] 105 mmol/L Normal 97-105 [facility] Comment on above: Order Comment: Speci men Type: BLOOD SPECIMENOrdering Facility: [facility] Address: [address] [place] [address] Performed By: #### 2 4323-8, 6-3 ####[facility] LABCLIA [id number] [place] [address] [place] CO2 [Moles/Vol] 27 mmol/L Normal 22-30 [facility] Comment on above: Order Comment: Speci men Type: BLOOD SPECIMENOrdering Facility: [facility] Address: [address] [place] [address] Performed By: #### 2 4323-8, 6-3 ####[facility] LABIA [id number] [place] [address] [place] Creatinine [Mass/Vol] 0.72 mg/dL Normal 0.58-0.96 [facility] Comment on above: Order Comment: Speci men Type: BLOOD SPECIMENOrdering Facility: [facility] Address: [address] [place] [address] Performed By: #### 2 4323-8, 3015-3 ####[facility] LABIA [id number] [place] [address] [place] Creatinine and Glomerular filtration rate.predicted panel (S/P/Bld) 87 mL/min/1.73m??? Normal >=60 [facility] Comment on above: Order Comment: Speci men Type: BLOOD SPECIMENOrdering Facility: [facility] Address: [address] [place] [address] Result Comment: Shelley mated Glomerular Filtration Rate [...] actual GFR. Performed By: #### 2 4323-8, 3015-3 ####[facility] LABIA [id number] [place] [id number] [place] Glucose [Mass/Vol] 92 mg/dL Normal 74-99 [facility] Comment on above: Order Comment: Speci men Type: BLOOD SPECIMENOrdering Facility: [facility] Address: [address] [place] [address] Result Comment: The [place] Diabetes [employer] (ADA) provides guidance for cutoff [...] Standards of Medical Care in Diabetes 2016, [place] [employer]. Diabetes Care. 2016.39(Suppl 1). Performed By: #### 2 4323-8, 3015-3 ####[facility] LABCLIA [id number] [place] [address] [place] Potassium [Moles/Vol] 4.7 mmol/L Normal 3.7-5.1 [facility] Comment on above: Order Comment: Speci men Type: BLOOD SPECIMENOrdering Facility: [facility] Address: [address] [place] [address] Performed By: #### 2 4328, 3 ####[facility] LABCLIA [id number] [place] [address] [place] Protein [Mass/Vol] 5.8 g/dL Low 6.3-8.0 [facility] Comment on above: Order Comment: Speci men Type: BLOOD SPECIMENOrdering Facility: [facility] Address: [address] [place] [address] Performed By: #### 2 4328, 3 ####[facility] LABCLIA [id number] [place] [address] [place] Sodium [Moles/Vol] 140 mmol/L Normal 136-144 [facility] Comment on above: Order Comment: Speci men Type: BLOOD SPECIMENOrdering Facility: [facility] Address: [address] [place] [address] Performed By: #### 2 4328, 3015-3 ####[facility] LABCLIA [id number] [place] [address] [place] Urea nitrogen [Mass/Vol] 15 mg/dL Normal 7-21 [facility] Comment on above: Order Comment: Speci men Type: BLOOD SPECIMENOrdering Facility: [facility] Address: [address] [place] [address] Performed By: #### 2 4323-8, 3016-3 ####[facility] LABIA [id number] [place] [address] [place] TSH SerPl-aCncon 08-27-2023 TSH Qn 9.850 m[IU]/L High 0.270-4.200 [facility] Comment on above: Order Comment: Speci men Type: BLOOD SPECIMENOrdering Facility: [facility] Address: [address] [place] [address] Performed By: #### 2 4323-8, 3016-3 ####[facility] LABIA [id number] [place] [address] [place] Bacteria Ur Culton Bacteria identified Cx Nom (U) Abnormal [facility] Comment on above: Performed By: #### 6 30-4 ####[facility] LABIA [id number] [place] [address] [place] CBC panel Auto (Bld)on 08-26 Erythrocyte distribution width (RBC) [Ratio] 13.1 % Normal 11.5-15.0 [facility] Comment on above: Order Comment: Speci men Type: BLOOD SPECIMENOrdering Facility: [facility] Address: [address] [place] [address] Performed By: #### 5 8410-2 ####[facility] LABIA [id number] [place] [address] [place] Hematocrit (Bld) [Volume fraction] 38.5 % Normal 36.0-46.0 [facility] Comment on above: Order Comment: Speci men Type: BLOOD SPECIMENOrdering Facility: [facility] Address: [address] [place] [address] Performed By: #### 5 8410-2 ####[facility] LABCLIA [id number] [place] [address] [place] Hemoglobin (Bld) [Mass/Vol] 12.8 g/dL Normal 11.5-15.5 [facility] Comment on above: Order Comment: Speci men Type: BLOOD SPECIMENOrdering Facility: [facility] Address: [address] [place] [address] Performed By: #### 5 8410-2 ####[facility] LABCLIA [id number] [place] [address] [place] MCH (RBC) [Entitic mass] 30.0 pg Normal 26.0-34.0 [facility] Comment on above: Order Comment: Speci men Type: BLOOD SPECIMENOrdering Facility: [facility] Address: [address] [place] [address] Performed By: #### 5 8410-2 ####[facility] LABCLIA [id number] [place] [address] [place] MCHC (RBC) [Mass/Vol] 33.2 g/dL Normal 30.5-36.0 [facility] Comment on above: Order Comment: Speci men Type: BLOOD SPECIMENOrdering Facility: [facility] Address: [address] [place] [address] Performed By: #### 5 8410-2 ####[facility] LABCLIA [id number] [place] [address] [place] MCV (RBC) [Entitic vol] 90.4 fL Normal 80.0-100.0 [facility] Comment on above: Order Comment: Speci men Type: BLOOD SPECIMENOrdering Facility: [facility] Address: [address] [place] [address] Performed By: #### 5 8410-2 ####[facility] LABCLIA [id number] [place] [address] [place] Nucleated RBC (Bld) [#/Vol] 10*3/uL Normal <0.01 [facility] Comment on above: Order Comment: Speci men Type: BLOOD SPECIMENOrdering Facility: [facility] Address: [address] [place] [address] Performed By: #### 5 8410-2 ####[facility] LABCLIA [id number] [place] [address] [place] Platelet mean volume (Bld) [Entitic vol] 10.6 fL Normal 9.0-12.7 [facility] Comment on above: Order Comment: Speci men Type: BLOOD SPECIMENOrdering Facility: [facility] Address: [address] [place] [address] Performed By: #### 5 8410-2 ####[facility] LABCLIA [id number] [place] [address] [place] Platelets (Bld) [#/Vol] 168 10*3/uL Normal 150-400 [facility] Comment on above: Order Comment: Speci men Type: BLOOD SPECIMENOrdering Facility: [facility] Address: [address] [place] [address] Performed By: #### 5 8410-2 ####[facility] LABCLIA [id number] [place] [address] [place] RBC (Bld) [#/Vol] 4.26 10*6/uL Normal 3.90-5.20 [facility] Comment on above: Order Comment: Speci men Type: BLOOD SPECIMENOrdering Facility: [facility] Address: [address] [place] [address] Performed By: #### 5 8410-2 ####[facility] LABCLIA [id number] [place] [address] [place] WBC (Bld) [#/Vol] 7.27 10*3/uL Normal 3.70-11.00 [facility] Comment on above: Order Comment: Speci men Type: BLOOD SPECIMENOrdering Facility: [facility] Address: [address] [place] [address] Performed By: #### 5 8410-2 ####[facility] LABCLIA [id number] [place] [address] [place] CONSULTon 08-26-2023 CONSULT Normal [facility] metabolic 2000 panelon 08-26-2023 Albumin [Mass/Vol] 3.5 g/dL Low 3.9-4.9 [facility] Comment on above: Order Comment: Speci men Type: BLOOD SPECIMENOrdering Facility: [facility] Address: [address] [place] [address] Performed By: #### 2 4323-8 ####[facility] LABCLIA [id number] [place] [address] [place] ALP [Catalytic activity/Vol] 60 U/L Normal 34-123 [facility] Comment on above: Order Comment: Speci men Type: BLOOD SPECIMENOrdering Facility: [facility] Address: [address] [place] [address] Performed By: #### 2 4323-8 ####[facility] LABCLIA [id number] [place] [address] [place] ALT [Catalytic activity/Vol] 25 U/L Normal 7-38 [facility] Comment on above: Order Comment: Speci men Type: BLOOD SPECIMENOrdering Facility: [facility] Address: [address] [place] [address] Performed By: #### 2 4323-8 ####[facility] LABCLIA [id number] [place] [address] [place] Anion gap [Moles/Vol] 10 mmol/L Normal 9-18 [facility] Comment on above: Order Comment: Speci men Type: BLOOD SPECIMENOrdering Facility: [facility] Address: [address] [place] [address] Performed By: #### 2 4323-8 ####[facility] LABCLIA [id number] [place] [address] [place] AST [Catalytic activity/Vol] 22 U/L Normal 13-35 [facility] Comment on above: Order Comment: Speci men Type: BLOOD SPECIMENOrdering Facility: [facility] Address: [address] [place] [address] Performed By: #### 2 4323-8 ####[facility] LABCLIA [id number] [place] [address] [place] Bilirubin [Mass/Vol] 0.4 mg/dL Normal 0.2-1.3 [facility] Comment on above: Order Comment: Speci men Type: BLOOD SPECIMENOrdering Facility: [facility] Address: [address] [place] [address] Performed By: #### 2 4323-8 ####[facility] LABCLIA [id number] [place] [address] [place] Calcium [Mass/Vol] 8.9 mg/dL Normal 8.5-10.2 [facility] Comment on above: Order Comment: Speci men Type: BLOOD SPECIMENOrdering Facility: [facility] Address: [address] [place] [address] Performed By: #### 2 4323-8 ####[facility] LABCLIA [id number] [place] [address] [place] Chloride [Moles/Vol] 104 mmol/L Normal 97-105 [facility] Comment on above: Order Comment: Speci men Type: BLOOD SPECIMENOrdering Facility: [facility] Address: [address] [place] [address] Performed By: #### 2 4323-8 ####[facility] LABCLIA [id number] [place] [address] [place] CO2 [Moles/Vol] 26 mmol/L Normal 22-30 [facility] Comment on above: Order Comment: Speci men Type: BLOOD SPECIMENOrdering Facility: [facility] Address: [address] [place] [address] Performed By: #### 2 4323-8 ####[facility] LABCLIA [id number] [place] [address] [place] Creatinine [Mass/Vol] 0.84 mg/dL Normal 0.58-0.96 [facility] Comment on above: Order Comment: Speci men Type: BLOOD SPECIMENOrdering Facility: [facility] Address: [address] [place] [address] Performed By: #### 2 4323-8 ####[facility] LABCLIA [id number] [place] [address] [place] Creatinine and Glomerular filtration rate.predicted panel (S/P/Bld) 73 mL/min/1.73m??? Normal >=60 [facility] Comment on above: Order Comment: Speci men Type: BLOOD SPECIMENOrdering Facility: [facility] Address: [address] [place] [address] Result Comment: Shelley mated Glomerular Filtration Rate [...] actual GFR. Performed By: #### 2 4323-8 ####[facility] LABCLIA [id number] [place] [address] [place] Glucose [Mass/Vol] 93 mg/dL Normal 74-99 [facility] Comment on above: Order Comment: Speci men Type: BLOOD SPECIMENOrdering Facility: [facility] Address: [address] [place] [address] Result Comment: The [place] [employer] (ADA) provides guidance for cutoff [...] Standards of Medical Care in Diabetes 2016, [place] [employer]. Diabetes Care. 2016.39(Suppl 1). Performed By: #### 2 4323-8 ####[facility] LABCLIA [id number] [place] [address] [place] Potassium [Moles/Vol] 4.4 mmol/L Normal 3.7-5.1 [facility] Comment on above: Order Comment: Speci men Type: BLOOD SPECIMENOrdering Facility: [facility] Address: [address] [place] [address] Performed By: #### 2 432-8 ####[facility] LABCLIA [id number] [place] [address] [place] Protein [Mass/Vol] 5.7 g/dL Low 6.3-8.0 [facility] Comment on above: Order Comment: Speci men Type: BLOOD SPECIMENOrdering Facility: [facility] Address: [address] [place] [address] Performed By: #### 2 4323-8 ####[facility] LABCLIA [id number] [place] [address] [place] Sodium [Moles/Vol] 140 mmol/L Normal 136-144 [facility] Comment on above: Order Comment: Speci men Type: BLOOD SPECIMENOrdering Facility: [facility] Address: [address] [place] [address] Performed By: #### 2 4323-8 ####[facility] LABCLIA [id number] [place] [address] [place] Urea nitrogen [Mass/Vol] 19 mg/dL Normal 7-21 [facility] Comment on above: Order Comment: Speci men Type: BLOOD SPECIMENOrdering Facility: [facility] Address: [address] [place] [address] Performed By: #### 2 4323-8 ####[facility] LABCLIA [id number] [place] [address] [place] CASE MGT INIT ASSESon 2023 CASE MGT INIT ASSES Normal [facility] CBC panel Auto (Bld)on 08-25 Erythrocyte distribution width (RBC) [Ratio] 12.9 % Normal 11.5-15.0 [facility] Comment on above: Order Comment: Speci men Type: BLOOD SPECIMENOrdering Facility: [facility] Address: [address] [place] [address] Performed By: #### 5 8410-2 ####[facility] LABCLIA [id number] [place] [address] [place] Hematocrit (Bld) [Volume fraction] 37.8 % Normal 36.0-46.0 [facility] Comment on above: Order Comment: Speci men Type: BLOOD SPECIMENOrdering Facility: [facility] Address: [address] [place] [address] Performed By: #### 5 8410-2 ####[facility] LABCLIA [id number] [place] [address] [place] Hemoglobin (Bld) [Mass/Vol] 12.8 g/dL Normal 11.5-15.5 [facility] Comment on above: Order Comment: Speci men Type: BLOOD SPECIMENOrdering Facility: [facility] Address: [address] [place] [address] Performed By: #### 5 8410-2 ####[facility] LABCLIA [id number] [place] [address] [place] MCH (RBC) [Entitic mass] 29.9 pg Normal 26.0-34.0 [facility] Comment on above: Order Comment: Speci men Type: BLOOD SPECIMENOrdering Facility: [facility] Address: [address] [place] [address] Performed By: #### 5 8410-2 ####[facility] LABCLIA [id number] [place] [address] [place] MCHC (RBC) [Mass/Vol] 33.9 g/dL Normal 30.5-36.0 [facility] Comment on above: Order Comment: Speci men Type: BLOOD SPECIMENOrdering Facility: [facility] Address: [address] [place] [address] Performed By: #### 5 8410-2 ####[facility] LABIA [id number] [place] [address] [place] MCV (RBC) [Entitic vol] 88.3 fL Normal 80.0-100.0 [facility] Comment on above: Order Comment: Speci men Type: BLOOD SPECIMENOrdering Facility: [facility] Address: [address] [place] [address] Performed By: #### 5 8410-2 ####[facility] LABIA [id number] [place] [address] [place] Nucleated RBC (Bld) [#/Vol] 10*3/uL Normal <0.01 [facility] Comment on above: Order Comment: Speci men Type: BLOOD SPECIMENOrdering Facility: [facility] Address: [address] [place] [address] Performed By: #### 5 8410-2 ####[facility] LABIA [id number] [place] [address] [place] Platelet mean volume (Bld) [Entitic vol] 10.1 fL Normal 9.0-12.7 [facility] Comment on above: Order Comment: Speci men Type: BLOOD SPECIMENOrdering Facility: [facility] Address: [address] [place] [address] Performed By: #### 5 8410-2 ####[facility] LABCLIA [id number] [place] [address] [place] Platelets (Bld) [#/Vol] 173 10*3/uL Normal 150-400 [facility] Comment on above: Order Comment: Speci men Type: BLOOD SPECIMENOrdering Facility: [facility] Address: [address] [place] [address] Performed By: #### 5 8410-2 ####[facility] LABCLIA [id number] [place] [address] [place] RBC (Bld) [#/Vol] 4.28 10*6/uL Normal 3.90-5.20 [facility] Comment on above: Order Comment: Speci men Type: BLOOD SPECIMENOrdering Facility: [facility] Address: [address] [place] [address] Performed By: #### 5 8410-2 ####[facility] LABCLIA [id number] [place] [address] [place] WBC (Bld) [#/Vol] 6.38 10*3/uL Normal 3.70-11.00 [facility] Comment on above: Order Comment: Speci men Type: BLOOD SPECIMENOrdering Facility: [facility] Address: [address] [place] [address] Performed By: #### 5 8410-2 ####[facility] LABCLIA [id number] [place] [id number] [place] Comprehensive metabolic 2000 panelon 08-25-2023 Albumin [Mass/Vol] 3.4 g/dL Low 3.9-4.9 [facility] Comment on above: Order Comment: Speci men Type: BLOOD SPECIMENOrdering Facility: [facility] Address: [address] [place] [address] Performed By: #### 1 9123-9, ####[facility] LABCLIA [id number] [place] [address] [place] ALP [Catalytic activity/Vol] 48 U/L Normal 34-123 [facility] Comment on above: Order Comment: Speci men Type: BLOOD SPECIMENOrdering Facility: [facility] Address: [address] [place] [address] Performed By: #### 1 9123-9, 15306-6 ####[facility] LABCLIA [id number] [place] [address] [place] ALT [Catalytic activity/Vol] 26 U/L Normal 7-38 [facility] Comment on above: Order Comment: Speci men Type: BLOOD SPECIMENOrdering Facility: [facility] Address: [address] [place] [address] Performed By: #### 1 239, ####[facility] LABCLIA [id number] [place] [address] [place] Anion gap [Moles/Vol] 10 mmol/L Normal 9-18 [facility] Comment on above: Order Comment: Speci men Type: BLOOD SPECIMENOrdering Facility: [facility] Address: [address] [place] [address] Performed By: #### 1 23-9, ####[facility] LABCLIA [id number] [place] [address] [place] AST [Catalytic activity/Vol] 23 U/L Normal 13-35 [facility] Comment on above: Order Comment: Speci men Type: BLOOD SPECIMENOrdering Facility: [facility] Address: [address] [place] [address] Performed By: #### 1 9123-9, 48435-3 ####[facility] LABCLIA [id number] [place] [address] [place] Bilirubin [Mass/Vol] 0.9 mg/dL Normal 0.2-1.3 [facility] Comment on above: Order Comment: Speci men Type: BLOOD SPECIMENOrdering Facility: [facility] Address: [address] [place] [address] Performed By: #### 1 23-9, ####[facility] LABCLIA [id number] [place] [address] [place] Calcium [Mass/Vol] 9.0 mg/dL Normal 8.5-10.2 [facility] Comment on above: Order Comment: Speci men Type: BLOOD SPECIMENOrdering Facility: [facility] Address: [address] [place] [address] Performed By: #### 1 9123-9, ####[facility] LABCLIA [id number] [place] [address] [place] Chloride [Moles/Vol] 97 mmol/L Normal 97-105 [facility] Comment on above: Order Comment: Speci men Type: BLOOD SPECIMENOrdering Facility: [facility] Address: [address] [place] [address] Performed By: #### 1 23-9, ####[facility] LABCLIA [id number] [place] [address] [place] CO2 [Moles/Vol] 29 mmol/L Normal 22-30 [facility] Comment on above: Order Comment: Speci men Type: BLOOD SPECIMENOrdering Facility: [facility] Address: [address] [place] [address] Performed By: #### 1 9123-9, ####[facility] LABCLIA [id number] [place] [address] [place] Creatinine [Mass/Vol] 1.02 mg/dL High 0.58-0.96 [facility] Comment on above: Order Comment: Speci men Type: BLOOD SPECIMENOrdering Facility: [facility] Address: [address] [place] [address] Performed By: #### 1 9123-9, 71394-4 ####[facility] LABIA [id number] [place] [address] [place] Creatinine and Glomerular filtration rate.predicted panel (S/P/Bld) 57 mL/min/1.73m??? Low >=60 [facility] Comment on above: Order Comment: Nichole becerra Type: BLOOD SPECIMENOrdering Facility: [facility] Address: [address] [place] [address] Result Comment: Shelley mated Glomerular Filtration Rate [...] actual GFR. Performed By: #### 1 9123-9, 23105-8 ####[facility] LABIA [id number] [place] [address] [place] Glucose [Mass/Vol] 84 mg/dL Normal 74-99 [facility] Comment on above: Order Comment: Nichole becerra Type: BLOOD SPECIMENOrdering Facility: [facility] Address: [address] [place] [address] Result Comment: The [place] [employer] (ADA) provides guidance for cutoff [...] Standards of Medical Care in Diabetes 2016, [place] [employer]. Diabetes Care. 2016.39(Suppl 1). Performed By: #### 1 23-9, ####[facility] LABCLIA [id number] [place] [address] [place] Potassium [Moles/Vol] 3.4 mmol/L Low 3.7-5.1 [facility] Comment on above: Order Comment: Speci men Type: BLOOD SPECIMENOrdering Facility: [facility] Address: [address] [place] [address] Performed By: #### 1 23-9, ####[facility] LABCLIA [id number] [place] [address] [place] Protein [Mass/Vol] 5.7 g/dL Low 6.3-8.0 [facility] Comment on above: Order Comment: Speci men Type: BLOOD SPECIMENOrdering Facility: [facility] Address: [address] [place] [address] Performed By: #### 1 239, ####[facility] LABCLIA [id number] [place] [address] [place] Sodium [Moles/Vol] 136 mmol/L Normal 136-144 [facility] Comment on above: Order Comment: Speci men Type: BLOOD SPECIMENOrdering Facility: [facility] Address: [address] [place] [address] Performed By: #### 1 239, ####[facility] LABCLIA [id number] [place] [address] [place] Urea nitrogen [Mass/Vol] 22 mg/dL High 7-21 [facility] Comment on above: Order Comment: Speci men Type: BLOOD SPECIMENOrdering Facility: [facility] Address: [address] [place] [address] Performed By: #### 1 9123-9, ####[facility] LABCLIA [id number] [place] [id number] [place] Magnesium SerPl-mCncon 08-25 Magnesium [Mass/Vol] 2.2 mg/dL Normal 1.7-2.3 [facility] Comment on above: Order Comment: Speci men Type: BLOOD SPECIMENOrdering Facility: [facility] Address: [address] [place] [address] Performed By: #### 1 9123-9, 90020-4 ####[facility] LABIA [id number] [place] [address] [place] POTASSIUM BLDon 08-25-2023 Potassium [Moles/Vol] 4.3 mmol/L Normal 3.7-5.1 [facility] Comment on above: Order Comment: Speci men Type: BLOOD SPECIMENOrdering Facility: [facility] Address: [address] [place] [address] Performed By: #### K 1 ####[facility] LABIA [id number] [place] [address] [place] US KIDNEY/BLADDERon 08-25-19 24 US KIDNEY/BLADDER Normal [facility] CBC W Auto Differential pane l (Bld)on 08-24-2023 Basophils (Bld) [#/Vol] 0.03 10*3/uL Normal <0.11 [facility] Comment on above: Order Comment: Speci men Type: BLOOD SPECIMENOrdering Facility: [facility] Address: [address] [place] [address] Performed By: #### 5 7021-8 ####[facility] LABIA [id number] [place] [address] [place] Basophils/100 WBC (Bld) 0.4 % Normal [facility] Comment on above: Order Comment: Speci men Type: BLOOD SPECIMENOrdering Facility: [facility] Address: [address] [place] [address] Performed By: #### 5 7021-8 ####[facility] LABIA [id number] [place] [address] [place] Differential cell count method Nom (Bld) Auto Normal [facility] Comment on above: Order Comment: Speci men Type: BLOOD SPECIMENOrdering Facility: [facility] Address: [address] [place] [address] Performed By: #### 5 7021-8 ####[facility] LABCLIA [id number] [place] [address] [place] Eosinophils (Bld) [#/Vol] 0.03 10*3/uL Normal <0.46 [facility] Comment on above: Order Comment: Speci men Type: BLOOD SPECIMENOrdering Facility: [facility] Address: [address] [place] [address] Performed By: #### 5 7021-8 ####[facility] LABCLIA [id number] [place] [address] [place] Eosinophils/100 WBC (Bld) 0.4 % Normal [facility] Comment on above: Order Comment: Speci men Type: BLOOD SPECIMENOrdering Facility: [facility] Address: [address] [place] [address] Performed By: #### 5 7021-8 ####[facility] LABCLIA [id number] [place] [address] [place] Erythrocyte distribution width (RBC) [Ratio] 12.7 % Normal 11.5-15.0 [facility] Comment on above: Order Comment: Speci men Type: BLOOD SPECIMENOrdering Facility: [facility] Address: [address] [place] [address] Performed By: #### 5 7021-8 ####[facility] LABCLIA [id number] [place] [address] [place] Hematocrit (Bld) [Volume fraction] 40.4 % Normal 36.0-46.0 [facility] Comment on above: Order Comment: Speci men Type: BLOOD SPECIMENOrdering Facility: [facility] Address: [address] [place] [address] Performed By: #### 5 7021-8 ####[facility] LABCLIA [id number] [place] [address] [place] Hemoglobin (Bld) [Mass/Vol] 13.2 g/dL Normal 11.5-15.5 [facility] Comment on above: Order Comment: Speci men Type: BLOOD SPECIMENOrdering Facility: [facility] Address: [address] [place] [address] Performed By: #### 5 7021-8 ####[facility] LABCLIA [id number] [place] [address] [place] Immature granulocytes (Bld) [#/Vol] 10*3/uL Normal <0.10 [facility] Comment on above: Order Comment: Speci men Type: BLOOD SPECIMENOrdering Facility: [facility] Address: [address] [place] [address] Performed By: #### 5 7021-8 ####[facility] LABCLIA [id number] [place] [address] [place] Immature granulocytes/100 WBC (Bld) 0.3 % Normal [facility] Comment on above: Order Comment: Speci men Type: BLOOD SPECIMENOrdering Facility: [facility] Address: [address] [place] [address] Performed By: #### 5 7021-8 ####[facility] LABCLIA [id number] [place] [address] [place] Lymphocytes (Bld) [#/Vol] 1.73 10*3/uL Normal 1.00-4.00 [facility] Comment on above: Order Comment: Speci men Type: BLOOD SPECIMENOrdering Facility: [facility] Address: [address] [place] [address] Performed By: #### 5 7021-8 ####[facility] LABCLIA [id number] [place] [address] [place] Lymphocytes/100 WBC (Bld) 23.4 % Normal [facility] Comment on above: Order Comment: Speci men Type: BLOOD SPECIMENOrdering Facility: [facility] Address: [address] [place] [address] Performed By: #### 5 7021-8 ####[facility] LABIA [id number] [place] [address] [place] MCH (RBC) [Entitic mass] 29.3 pg Normal 26.0-34.0 [facility] Comment on above: Order Comment: Speci men Type: BLOOD SPECIMENOrdering Facility: [facility] Address: [address] [place] [address] Performed By: #### 5 7021-8 ####[facility] LABCLIA [id number] [place] [address] [place] MCHC (RBC) [Mass/Vol] 32.7 g/dL Normal 30.5-36.0 [facility] Comment on above: Order Comment: Speci men Type: BLOOD SPECIMENOrdering Facility: [facility] Address: [address] [place] [address] Performed By: #### 5 7021-8 ####[facility] LABIA [id number] [place] [address] [place] MCV (RBC) [Entitic vol] 89.8 fL Normal 80.0-100.0 [facility] Comment on above: Order Comment: Speci men Type: BLOOD SPECIMENOrdering Facility: [facility] Address: [address] [place] [address] Performed By: #### 5 7021-8 ####[facility] LABIA [id number] [place] [address] [place] Monocytes (Bld) [#/Vol] 0.77 10*3/uL Normal <0.87 [facility] Comment on above: Order Comment: Speci men Type: BLOOD SPECIMENOrdering Facility: [facility] Address: [address] [place] [address] Performed By: #### 5 7021-8 ####[facility] LABCLIA [id number] [place] [address] [place] Monocytes/100 WBC (Bld) 10.4 % Normal [facility] Comment on above: Order Comment: Speci men Type: BLOOD SPECIMENOrdering Facility: [facility] Address: [address] [place] [address] Performed By: #### 5 7021-8 ####[facility] LABCLIA [id number] [place] [address] [place] Neutrophils (Bld) [#/Vol] 4.82 10*3/uL Normal 1.45-7.50 [facility] Comment on above: Order Comment: Speci men Type: BLOOD SPECIMENOrdering Facility: [facility] Address: [address] [place] [address] Performed By: #### 5 7021-8 ####[facility] LABCLIA [id number] [place] [address] [place] Neutrophils/100 WBC (Bld) 65.1 % Normal [facility] Comment on above: Order Comment: Speci men Type: BLOOD SPECIMENOrdering Facility: [facility] Address: [address] [place] [address] Performed By: #### 5 7021-8 ####[facility] LABCLIA [id number] [place] [address] [place] Nucleated RBC (Bld) [#/Vol] 10*3/uL Normal <0.01 [facility] Comment on above: Order Comment: Speci men Type: BLOOD SPECIMENOrdering Facility: [facility] Address: [address] [place] [address] Performed By: #### 5 7021-8 ####[facility] LABCLIA [id number] [address] [id number] [address] [place] Nucleated RBC/100 WBC (Bld) [Ratio] 0.0 /100 WBC Normal [facility] Comment on above: Order Comment: Speci men Type: BLOOD SPECIMENOrdering Facility: [facility] Address: [address] [place] [address] Performed By: #### 5 7021-8 ####[facility] LABCLIA [id number] [place] [address] [place] Platelet mean volume (Bld) [Entitic vol] 10.4 fL Normal 9.0-12.7 [facility] Comment on above: Order Comment: Speci men Type: BLOOD SPECIMENOrdering Facility: [facility] Address: [address] [place] [address] Performed By: #### 5 7021-8 ####[facility] LABCLIA [id number] [place] [address] [place] Platelets (Bld) [#/Vol] 201 10*3/uL Normal 150-400 [facility] Comment on above: Order Comment: Speci men Type: BLOOD SPECIMENOrdering Facility: [facility] Address: [address] [place] [address] Performed By: #### 5 7021-8 ####[facility] LABIA [id number] [place] [address] [place] RBC (Bld) [#/Vol] 4.50 10*6/uL Normal 3.90-5.20 [facility] Comment on above: Order Comment: Speci men Type: BLOOD SPECIMENOrdering Facility: [facility] Address: [address] [place] [address] Performed By: #### 5 7021-8 ####[facility] LABCLIA [id number] [place] [address] [place] WBC (Bld) [#/Vol] 7.40 10*3/uL Normal 3.70-11.00 [facility] Comment on above: Order Comment: Speci men Type: BLOOD SPECIMENOrdering Facility: [facility] Address: [address] [place] [address] Performed By: #### 5 7021-8 ####[facility] LABCLIA [id number] [place] [address] [place] CNPNon 08-24-2023 CNPN Normal [facility] Comprehensive metabolic 2000 panelon 08-24-2023 Albumin [Mass/Vol] 3.8 g/dL Low 3.9-4.9 [facility] Comment on above: Order Comment: Speci men Type: BLOOD SPECIMENOrdering Facility: [facility] Address: [address] [place] [address] Performed By: #### 2 4323-8 ####[facility] LABCLIA [id number] [place] [address] [place] ALP [Catalytic activity/Vol] 61 U/L Normal 34-123 [facility] Comment on above: Order Comment: Speci men Type: BLOOD SPECIMENOrdering Facility: [facility] Address: [address] [place] [address] Performed By: #### 2 4323-8 ####[facility] LABCLIA [id number] [place] [address] [place] ALT [Catalytic activity/Vol] 34 U/L Normal 7-38 [facility] Comment on above: Order Comment: Speci men Type: BLOOD SPECIMENOrdering Facility: [facility] Address: [address] [place] [address] Performed By: #### 2 4323-8 ####[facility] LABCLIA [id number] [place] [address] [place] Anion gap [Moles/Vol] 8 mmol/L Low 9-18 [facility] Comment on above: Order Comment: Speci men Type: BLOOD SPECIMENOrdering Facility: [facility] Address: [address] [place] [address] Performed By: #### 2 4323-8 ####[facility] LABCLIA [id number] [place] [address] [place] AST [Catalytic activity/Vol] 27 U/L Normal 13-35 [facility] Comment on above: Order Comment: Speci men Type: BLOOD SPECIMENOrdering Facility: [facility] Address: [address] [place] [address] Performed By: #### 2 4323-8 ####[facility] LABCLIA [id number] [place] [address] [place] Bilirubin [Mass/Vol] 0.7 mg/dL Normal 0.2-1.3 [facility] Comment on above: Order Comment: Speci men Type: BLOOD SPECIMENOrdering Facility: [facility] Address: [address] [place] [address] Performed By: #### 2 4323-8 ####[facility] LABCLIA [id number] [place] [address] [place] Calcium [Mass/Vol] 9.2 mg/dL Normal 8.5-10.2 [facility] Comment on above: Order Comment: Speci men Type: BLOOD SPECIMENOrdering Facility: [facility] Address: [address] [place] [address] Performed By: #### 2 4323-8 ####[facility] LABCLIA [id number] [place] [address] [place] Chloride [Moles/Vol] 97 mmol/L Normal 97-105 [facility] Comment on above: Order Comment: Speci men Type: BLOOD SPECIMENOrdering Facility: [facility] Address: [address] [place] [address] Performed By: #### 2 4323-8 ####[facility] LABCLIA [id number] [place] [address] [place] [place] CO2 [Moles/Vol] 32 mmol/L High 22-30 [facility] Comment on above: Order Comment: Speci men Type: BLOOD SPECIMENOrdering Facility: [facility] Address: [address] [place] [address] Performed By: #### 2 4323-8 ####[facility] [id number] [place] [address] [place] Creatinine [Mass/Vol] 1.11 mg/dL High 0.58-0.96 [facility] Comment on above: Order Comment: Speci men Type: BLOOD SPECIMENOrdering Facility: [facility] Address: [address] [place] [address] Performed By: #### 2 4323-8 ####[facility] [id number] [place] [address] [place] Creatinine and Glomerular filtration rate.predicted panel (S/P/Bld) 52 mL/min/1.73m??? Low >=60 [facility] Comment on above: Order Comment: Speci men Type: BLOOD SPECIMENOrdering Facility: [facility] Address: [address] [place] [address] Result Comment: Shelley mated Glomerular Filtration Rate [...] actual GFR. Performed By: #### 2 4323-8 ####[facility] LABIA [id number] [place] [address] [place] Glucose [Mass/Vol] 123 mg/dL High 74-99 [facility] Comment on above: Order Comment: Speci men Type: BLOOD SPECIMENOrdering Facility: [facility] Address: [address] [place] [address] Result Comment: The [place] Diabetes Association (ADA) provides guidance for cutoff [...] Standards of Medical Care in Diabetes 2016, [place] [employer]. Diabetes Care. 2016.39(Suppl 1). Performed By: #### 2 4323-8 ####[facility] LABCLIA [id number] [place] [address] [place] Potassium [Moles/Vol] 3.7 mmol/L Normal 3.7-5.1 [facility] Comment on above: Order Comment: Speci men Type: BLOOD SPECIMENOrdering Facility: [facility] Address: [address] [place] [address] Performed By: #### 2 4323-8 ####[facility] LABCL[facility] [id number] [place] [address] [place] Protein [Mass/Vol] 6.1 g/dL Low 6.3-8.0 [facility] Comment on above: Order Comment: Césari men Type: BLOOD SPECIMENOrdering Facility: [facility] Address: [address] [place] [address] Performed By: #### 2 4323-8 ####[facility] LABCL[facility] [id number] [place] [address] [place] Sodium [Moles/Vol] 137 mmol/L Normal 136-144 [facility] Comment on above: Order Comment: Speci men Type: BLOOD SPECIMENOrdering Facility: [facility] Address: [address] [place] [address] Performed By: #### 2 4323-8 ####[facility] LABCLIA [id number] [place] [address] [place] Urea nitrogen [Mass/Vol] 21 mg/dL Normal 7-21 [facility] Comment on above: Order Comment: Speci men Type: BLOOD SPECIMENOrdering Facility: [facility] Address: [address] [place] [address] Performed By: #### 2 4323-8 ####[facility] LABCLIA [id number] [place] [address] [place] DIGOXIN/LANOXINon 08-24-2023 Digoxin [Mass/Vol] 1.1 ng/mL Normal 0.6-1.2 [facility] Comment on above: Order Comment: Speci men Type: BLOOD SPECIMENOrdering Facility: [facility] Address: [address] [place] [address] Result Comment: Prov ided therapeutic concentrations are based on the 2008 ESC Guidelines for the Diagnosis and Treatment of Acute and Chronic Heart Failure.Reference ranges and high/low indicator flags are provided as general guidelines only. The treating physician must determine appropriate target levels/dosing based on the specific clinical situation. Performed By: #### D IG ####[facility] LABCLIA [id number] [place] [address] [place] HISTORY PHYSICALon HISTORY PHYSICAL Normal [facility] URINALYSIS, DIPSTICK ONLYon 08-24-2023 Bilirubin Ql (U) Negative Normal Negative [facility] Comment on above: Order Comment: Speci men Type: URINE SPECIMENOrdering Facility: [facility] Address: [address] [place] [address] Performed By: #### U A ####[facility] LABCLIA [id number] [place] [address] [place] Clarity (Unsp spec) Cloudy Abnormal Clear [facility] Comment on above: Order Comment: Speci men Type: URINE SPECIMENOrdering Facility: [facility] Address: [address] [place] [address] Performed By: #### U A ####[facility] LABCLIA [id number] [place] [address] [place] Color (U) Yellow Normal Yellow [facility] Comment on above: Order Comment: Speci men Type: URINE SPECIMENOrdering Facility: [facility] Address: [address] [place] [address] Performed By: #### U A ####[facility] LABCLIA [id number] [place] [address] [place] Glucose Test strip (U) [Mass/Vol] Negative Normal Negative [facility] Comment on above: Order Comment: Speci men Type: URINE SPECIMENOrdering Facility: [facility] Address: [address] [place] [address] Performed By: #### U A ####[facility] LABCLIA [id number] [place] [address] [place] Hemoglobin Ql (U) Trace Abnormal Negative [facility] Comment on above: Order Comment: Speci men Type: URINE SPECIMENOrdering Facility: [facility] Address: [address] [place] [address] Performed By: #### U A ####[facility] LABCLIA [id number] [place] [address] [place] Ketones Ql (U) Trace Abnormal Negative [facility] Comment on above: Order Comment: Speci men Type: URINE SPECIMENOrdering Facility: [facility] Address: [address] [place] [address] Performed By: #### U A ####[facility] LABCLIA [id number] [place] [address] [place] Leukocyte esterase Test strip Ql (U) 1+ Abnormal Negative [facility] Comment on above: Order Comment: Speci men Type: URINE SPECIMENOrdering Facility: [facility] Address: [address] [place] [address] Performed By: #### U A ####[facility] LABCLIA [id number] [place] [address] [place] Nitrite Ql (U) Negative Normal Negative [facility] Comment on above: Order Comment: Speci men Type: URINE SPECIMENOrdering Facility: [facility] Address: [address] [place] [address] Performed By: #### U A ####[facility] LABCLIA [id number] [place] [address] [place] pH (U) 5.5 [pH] Normal <8.5 [facility] Comment on above: Order Comment: Speci men Type: URINE SPECIMENOrdering Facility: [facility] Address: [address] [place] [address] Performed By: #### U A ####[facility] LABIA [id number] [place] [address] [place] Protein (U) [Mass/Vol] 1+ Abnormal Negative [facility] Comment on above: Order Comment: Speci men Type: URINE SPECIMENOrdering Facility: [facility] Address: [address] [place] [address] Performed By: #### U A ####[facility] LABCLIA [id number] [place] [address] [place] Specific gravity (U) [Rel density] 1.021 Normal 1.005-1.030 [facility] Comment on above: Order Comment: Speci men Type: URINE SPECIMENOrdering Facility: [facility] Address: [address] [place] [address] Performed By: #### U A ####[facility] LABCLIA [id number] [place] [address] [place] Urobilinogen Ql (U) 1.0 EU/dL Normal 0.2-1.0 EU/dL [facility] Comment on above: Order Comment: Speci men Type: URINE SPECIMENOrdering Facility: [facility] Address: [address] [place] [address] Performed By: #### U A ####[facility] LABCLIA [id number] [place] [address] [place] CBC panel Auto (Bld)on 08-23 Erythrocyte distribution width (RBC) [Ratio] 12.9 % Normal 11.5-15.0 [facility] Comment on above: Order Comment: Speci men Type: BLOOD SPECIMENOrdering Facility: [facility] Address: [address] [place] [address] Performed By: #### 5 8410-2 ####[facility] LABCLIA [id number] [place] [address] [place] Hematocrit (Bld) [Volume fraction] 43.4 % Normal 36.0-46.0 [facility] Comment on above: Order Comment: Speci men Type: BLOOD SPECIMENOrdering Facility: [facility] Address: [address] [place] [address] Performed By: #### 5 8410-2 ####[facility] LABCLIA [id number] [address] [place] Hemoglobin (Bld) [Mass/Vol] 14.4 g/dL Normal 11.5-15.5 [facility] Comment on above: Order Comment: Speci men Type: BLOOD SPECIMENOrdering Facility: [facility] Address: [address] [place] [address] Performed By: #### 5 8410-2 ####[facility] LABCLIA [id number] [place] [address] [place] MCH (RBC) [Entitic mass] 30.3 pg Normal 26.0-34.0 [facility] Comment on above: Order Comment: Speci men Type: BLOOD SPECIMENOrdering Facility: [facility] Address: [address] [place] [address] Performed By: #### 5 8410-2 ####[facility] LABCLIA [id number] [place] [address] [place] MCHC (RBC) [Mass/Vol] 33.2 g/dL Normal 30.5-36.0 [facility] Comment on above: Order Comment: Speci men Type: BLOOD SPECIMENOrdering Facility: [facility] Address: [address] [place] [address] Performed By: #### 5 8410-2 ####[facility] LABCLIA [id number] [place] [address] [place] MCV (RBC) [Entitic vol] 91.4 fL Normal 80.0-100.0 [facility] Comment on above: Order Comment: Speci men Type: BLOOD SPECIMENOrdering Facility: [facility] Address: [address] [place] [address] Performed By: #### 5 8410-2 ####[facility] LABIA [id number] [place] [address] [place] Nucleated RBC (Bld) [#/Vol] 10*3/uL Normal <0.01 [facility] Comment on above: Order Comment: Speci men Type: BLOOD SPECIMENOrdering Facility: [facility] Address: [address] [place] [address] Performed By: #### 5 8410-2 ####[facility] LABIA [id number] [place] [address] [place] Platelet mean volume (Bld) [Entitic vol] 10.5 fL Normal 9.0-12.7 [facility] Comment on above: Order Comment: Speci men Type: BLOOD SPECIMENOrdering Facility: [facility] Address: [address] [place] [address] Performed By: #### 5 8410-2 ####[facility] LABIA [id number] [place] [address] [place] Platelets (Bld) [#/Vol] 215 10*3/uL Normal 150-400 [facility] Comment on above: Order Comment: Speci men Type: BLOOD SPECIMENOrdering Facility: [facility] Address: [address] [place] [address] Performed By: #### 5 8410-2 ####[facility] LABCLIA [id number] [place] [id number] [place] RBC (Bld) [#/Vol] 4.75 10*6/uL Normal 3.90-5.20 [facility] Comment on above: Order Comment: Speci men Type: BLOOD SPECIMENOrdering Facility: [facility] Address: [address] [place] [address] Performed By: #### 5 8410-2 ####[facility] LABCLIA [id number] [place] [address] [place] WBC (Bld) [#/Vol] 6.24 10*3/uL Normal 3.70-11.00 [facility] Comment on above: Order Comment: Speci men Type: BLOOD SPECIMENOrdering Facility: [facility] Address: [address] [place] [address] Performed By: #### 5 8410-2 ####[facility] LABCLIA [id number] [place] [id number] [place] CNOVon 08-23-2023 CNOV Normal [facility] CNOV Normal [facility] CREATININE BLDon 08-23-2023 Creatinine [Mass/Vol] 0.97 mg/dL High 0.58-0.96 [facility] Comment on above: Order Comment: Speci men Type: BLOOD SPECIMENOrdering Facility: [facility] Address: [address] [place] [address] Performed By: #### C RET1 ####[facility] LABIA [id number] [place] [address] [place] Creatinine and Glomerular filtration rate.predicted panel (S/P/Bld) 61 mL/min/1.73m??? Normal >=60 [facility] Comment on above: Order Comment: Speci men Type: BLOOD SPECIMENOrdering Facility: [facility] Address: [address] [place] [address] Result Comment: Shelley mated Glomerular Filtration Rate [...] actual GFR. Performed By: #### C RET1 ####[facility] LABCLIA [id number] [place] [address] [place] CTA CHEST (GATED) W IVCONon 08-23-2023 CTA CHEST (GATED) W IVCON Normal [facility] Comprehensive metabolic 2000 panelon 08-23-2023 Albumin [Mass/Vol] 4.4 g/dL Normal 3.9-4.9 [facility] Comment on above: Order Comment: Speci men Type: BLOOD SPECIMENOrdering Facility: [facility] Address: [address] [place] [address] Performed By: #### 2 4323-8, 73829-4 ####[facility] LABIA [id number] [place] [address] [place] ALP [Catalytic activity/Vol] 66 U/L Normal 34-123 [facility] Comment on above: Order Comment: Speci men Type: BLOOD SPECIMENOrdering Facility: [facility] Address: [address] [place] [address] Performed By: #### 2 4323-8, 44046-5 ####[facility] LABCLIA [id number] [place] [address] [place] ALT [Catalytic activity/Vol] 40 U/L High 7-38 [facility] Comment on above: Order Comment: Speci men Type: BLOOD SPECIMENOrdering Facility: [facility] Address: [address] [place] [address] Performed By: #### 2 4323-8, 26404-4 ####[facility] LABCLIA [id number] [place] [address] [place] Anion gap [Moles/Vol] 9 mmol/L Normal 9-18 [facility] Comment on above: Order Comment: Speci men Type: BLOOD SPECIMENOrdering Facility: [facility] Address: [address] [place] [address] Performed By: #### 2 4323-8, 87137-6 ####[facility] LABCLIA [id number] [place] [address] [place] AST [Catalytic activity/Vol] 31 U/L Normal 13-35 [facility] Comment on above: Order Comment: Speci men Type: BLOOD SPECIMENOrdering Facility: [facility] Address: [address] [place] [address] Performed By: #### 2 4323-8, 90256-4 ####[facility] LABCLIA [id number] [place] [address] [place] Bilirubin [Mass/Vol] 0.8 mg/dL Normal 0.2-1.3 [facility] Comment on above: Order Comment: Speci men Type: BLOOD SPECIMENOrdering Facility: [facility] Address: [address] [place] [address] Performed By: #### 2 4323-8, 90202-3 ####[facility] LABCLIA [id number] [place] [address] [place] Calcium [Mass/Vol] 9.8 mg/dL Normal 8.5-10.2 [facility] Comment on above: Order Comment: Speci men Type: BLOOD SPECIMENOrdering Facility: [facility] Address: [address] [place] [address] Performed By: #### 2 4323-8, 83258-5 ####[facility] LABCLIA [id number] [place] [address] [place] Chloride [Moles/Vol] 98 mmol/L Normal 97-105 [facility] Comment on above: Order Comment: Speci men Type: BLOOD SPECIMENOrdering Facility: [facility] Address: [address] [place] [address] Performed By: #### 2 4323-8, 48394-8 ####[facility] LABCLIA [id number] [place] [address] [place] CO2 [Moles/Vol] 32 mmol/L High 22-30 [facility] Comment on above: Order Comment: Speci men Type: BLOOD SPECIMENOrdering Facility: [facility] Address: [address] [place] [address] Performed By: #### 2 4323-8, 51323-5 ####[facility] LABCLIA [id number] [place] [address] [place] Creatinine [Mass/Vol] 0.98 mg/dL High 0.58-0.96 [facility] Comment on above: Order Comment: Speci men Type: BLOOD SPECIMENOrdering Facility: [facility] Address: [address] [place] [address] Performed By: #### 2 4323-8, 06458-7 ####[facility] LABCLIA [id number] [address] [place] Creatinine and Glomerular filtration rate.predicted panel (S/P/Bld) 60 mL/min/1.73m??? Normal >=60 [facility] Comment on above: Order Comment: Speci men Type: BLOOD SPECIMENOrdering Facility: [facility] Address: [address] [place] [address] Result Comment: Shelley mated Glomerular Filtration Rate [...] actual GFR. Performed By: #### 2 4323-8, 44843-5 ####[facility] LABCLIA [id number] [place] [address] [place] Glucose [Mass/Vol] 127 mg/dL High 74-99 [facility] Comment on above: Order Comment: Speci men Type: BLOOD SPECIMENOrdering Facility: [facility] Address: [address] [place] [address] Result Comment: The [place] Diabetes Association (ADA) provides guidance for cutoff [...] Standards of Medical Care in Diabetes 2016, [place] [employer]. Diabetes Care. 2016.39(Suppl 1). Performed By: #### 2 4323-8, 18708-6 ####[facility] LABCLIA [id number] [place] [address] [place] Potassium [Moles/Vol] 4.1 mmol/L Normal 3.7-5.1 [facility] Comment on above: Order Comment: Speci men Type: BLOOD SPECIMENOrdering Facility: [facility] Address: [address] [place] [address] Performed By: #### 2 4323-8, 79884-2 ####[facility] LABCLIA [id number] [place] [address] [place] Protein [Mass/Vol] 6.8 g/dL Normal 6.3-8.0 [facility] Comment on above: Order Comment: Speci men Type: BLOOD SPECIMENOrdering Facility: [facility] Address: [address] [place] [address] Performed By: #### 2 4323-8, 05401-9 ####[facility] LABCLIA [id number] [place] [address] [place] Sodium [Moles/Vol] 139 mmol/L Normal 136-144 [facility] Comment on above: Order Comment: Speci men Type: BLOOD SPECIMENOrdering Facility: [facility] Address: [address] [place] [address] Performed By: #### 2 4323-8, 27819-9 ####[facility] LABIA [id number] [place] [address] [place] Urea nitrogen [Mass/Vol] 17 mg/dL Normal 7-21 [facility] Comment on above: Order Comment: Speci men Type: BLOOD SPECIMENOrdering Facility: [facility] Address: [address] [place] [address] Performed By: #### 2 4323-8, 42869-0 ####[facility] [id number] [place] [address] [place] [id number] 08-23-2023 ECG01 Normal [facility] NT-proBNP SerPl-mCncon 08-23 Natriuretic peptide.B prohormone N-Terminal [Mass/Vol] 3265 pg/mL High <450 [facility] Comment on above: Order Comment: Speci men Type: BLOOD SPECIMENOrdering Facility: [facility] Address: [address] [place] [address] Performed By: #### 2 4323-8, 51608-5 ####[facility] LABIA [id number] [place] [address] [place] RIGHT HEART CATH REPORTon RIGHT HEART CATH REPORT Normal [facility] US CAROTID ARTERIES [facility] LABon 08-23-2023 US CAROTID ARTERIES [facility] LAB Normal [facility] CNPNon 08-22-2023 CNPN Normal [facility] CNPNon 08-16-2023 CNPN Normal [facility] Outside Cardiovascularon Outside Cardiovascular [id number]# 1.00TIFF Normal [facility] Progress Note-Physicianon Progress Note-Physician [id number]#[address]00TI[address] [facility] Echocardiogram-Transesophage anamaria 07-28-2023 Echocardiogram-Transe sophageal [id number]# 1.00TIFF Normal [facility] CNPNon 07-24-2023 CNPN Normal [facility] Discharge Instructionson Discharge Instructions [id number]# 1.00TIFF Normal [facility] Formson 07-24-2023 Forms [id number]#[address] [facility] Consent for Treatmenton Consent for Treatment [id number]#[address] [facility] Inpatient Clinical Summaryon 07-21-2023 Inpatient Clinical Summary [place] [id number] Clinical Summary Person Information: Name: HARJIT ASENCIO I Age: 73 Years : 1950 Sex: Female PCP: Peggy Nazario MD Marital Status: Race: White Ethnicity: Non- or Language: Bahraini Visit Id: Visit Reason: I51.9, I42.8 Speciality: Acuity: Enc Type: Ambulatory/Same Day Surgery Med Service: Surgery Arrival: 07/21/2023 06:33:24 Discharge: Dispo Type: Address: [address] [place] [address] [address] [facility] [id number] Provider Notes: Diagnosis: Problems Active Urethral stricture [...] Follow up: With: Address: When: Johan HENRIQUEZ [address] [place] [address] [phone] Business (1) Comments: -After your appointment with Type Location Start Finish State [place] [facility] [place] 01/24/2024 2:30 PM 01/24/2024 2:45 PM Confirmed Patient Education Information: CV - Post-Transesophageal Echocardiogram (Custom) Normal [facility] Inpatient Patient Summaryon 07-21-2023 Inpatient Patient Summary [address] [address] Patient Discharge Instructions PERSON INFORMATION Name: HARJIT ASENCIO I Date of : 1950 Current Date: 07/21/2023 09:05:07 PHYSICIANS Admitting Physician: MARTINEZ MCMAHON, Johan Patino Primary Care Physician: Aravind MCMAHON, Peggy Mcmillan PCP Comment: Discharge Diagnosis: Condition at Discharge: Unchanged HARJIT ASENCIO I has been given the following [...] Follow up: With: Address: When: Johan HENRIQUEZ [address] [place] [phone] Business (1) Comments: -After your appointment with CC In the event that this physician does not participate in your insurance network, please consult with your insurance company to find a nearby participating provider. Type Location Start Finish State [place] [facility] [place] 01/24/2024 2:30 PM 01/24/2024 2:45 PM Confirmed [...] Mouth every day. Refills: 0. [facility]: PATIENT EDUCATION INFORMATION Instructions: [place], [place] POST-TRANSESOPHAGEAL ECHOCARDIOGRAM AFTER THE PROCEDURE: Diet: ? May eat/drink and/or take normal daily medications after 10:45 Activity: ? You should have someone stay with you for the next (more content not included)... Normal [facility] Patient Education - Texton 1 09-21-2022 Patient Education - Text [place], [place] POST-TRANSESOPHAGEAL ECHOCARDIOGRAM AFTER THE PROCEDURE: Diet: [...] Seek Medical Care if: ? Notify your bracelet and brooch maker should you have any difficulty swallowing or coughing up blood. ? In the event you are unable to reach your bracelet and brooch maker, please call [facility] at [phone] and the acoustic sensor operator will assist you. [facility] Referrals Officeon 3 Referrals Office [id number]# 1.00TIFF [facility] Consent for Procedure/Surger yon 07-20-2023 Consent for Procedure/Surgery [id number] #1.00TIFF [facility] Consent for Treatmenton 0 Consent for Treatment [id number] .00TIFF Normal [facility] Heart and Vascular Office/Cl inic Noteon [...] confirmed by markedly elevated V wave on [place] catheter wedge pressure tracing. 5. Normal left [...] The patient wishes to go to the [facility] for mitral and tricuspid valve repair [...] Renal le (more content not included)... Normal [facility] Comment on above: Result Comment: Elec tronically Signed By: Johan HENRIQUEZ MD\.br\Date and Time Signed: 07/20/23 10:38 EST Physician Orderon 07-20-2023 Physician Order [id number] #1.00TIFF Lalitha Yen [facility] Ambulatory Visit Summaryon 1 09-19-2022 Ambulatory Visit Summary HARJIT ASENCIO I :1950 Visit Date:07/19/2023 Ambulatory Visit Instructions Your Diagnosis Feeling of incomplete bladder emptying Atrophic vaginitis Urethral stricture Your Care Team Attending Physician - Micheline BROOKS MD Primary Care Physician - Aravind MCMAHON, Peggy [...] Micheline BROOKS MD Where: [facility] Shira Doty [facility] Patient Educationon 07-19-20 Patient Education Urology Urodynamic [...] including vitamins, herbs, eye drops, creams, and otqx-aly-ezpoctw medicines. ? Whether you are or may [...] results be (more content not included)... Normal [facility] Urology Office/Clinic Noteon 07-19-2023 Urology Office/Clinic Note Chief Complaint f/u for urinary retention HPI Staff Pt was last seen on 04/26/23. Pt was [place] [facility] [place]. Pt had [...] of incomplete bladder emptying) Pt presented to [facility] [place]23 due to [...] URL [facility] [address], [place] [address]- Additional Instructions: 6 mos Patient Education Urodynamic [...] Oral, BID (more content not included)... Normal [facility] Comment on above: Result Comment: Elec tronically Signed By: Micheline BROOKS MD\.br\Date and Time Signed: 07/19/23 16:01 EST\.br\Electronically Co-Signed By: Felisa Bautista\.br\Date and Time Co-Signed: 07/19/23 15:59 EST Coding Queryon 07-17-2023 Coding Query - From: Natalya Ansari To: JAZMÍN MCMAHON, Yosi; Sent: 07/14/2023 12:05:07 EST ! Subject: Coding Query Dr Serrato, In your Progress notes you list- 4. Elevated troponin Secondary to type 2 non-ST segment elevation myocardial infarction from above and mild cad The ekg nor echo showed ME and the Cardiology consult didn't mention it and his recommendations were reviewed and agreed with. Was the ME type II ruled out or should that be coded? Thank you Fiona HIM Coding From: Nahid SERRATO MD To: Natalya Ansari; Sent: 07/17/2023 12:28:48 EST Subject: RE: Coding Query Caller Name: HARJIT ASENCIO I; Caller Number: Debora Type 2 acute NSTEMI due to demand ischemia from A-FIB with RVR. (POA) Normal [facility] ED Note-Physicianon 07-15-20 ED Note-Physician Basic Information Time Seen: Tay Jeff 07/07/2023 09:00 Chief Complaint discharged yesterday [place] [facility], reports can't breathe w/exertion [...] of 40. Case is discussed with her bracelet and brooch maker. She just underwent ischemic evaluation including catheterization [...] HENRIQUEZ In 3 days 07/10/2023 EST [address] [place] [address] [phone] Business (1) Additional Instructions: Peggy Nazario In 3 days 07/10/2023 EST [address] [place] [address]- Business (1) Additional Instructions (more content not included)... [facility] Comment on above: Result Comment: Elec tronically Signed By: Noe Black PA-C\.br\Date and Time Signed: 07/07/23 15:56 EST\.br\Electronically Co-Signed By: Jeff Cross DO\.br\Date and Time Co-Signed: 07/15/23 06:59 EST Cardiovascular Reporton 06-16 Cardiovascular Report [id number]# 2.00TIFF [facility] Nursing Assessmenton 023 Nursing Assessment [id number]# 1.00TIFF [facility] Discharge Instructionson Discharge Instructions [id number]# 1.00TIFF [facility] Auto Diffon 11-24-2023 Basophils/100 WBC (Bld) 0.6 % Normal 0.0-2.0 [facility] Comment on above: Order Comment: Order Added by Discern Expert. Performed By: #### 2 832227, 35789967, 9443657, 0119331, 8488057, 6057278 #### [facility] [address] [place] [address] 54612 Basophils/Leukocytes Auto (Bld) [Pure # fraction] 0.0 E9/L Normal 0.0-0.2 [facility] Comment on above: Order Comment: Order Added by Discern Expert. Performed By: #### 2 730929, 02596398, 0312415, 3917907, 1428813, 8499057 #### [facility] [address] [place] [address] 10366 Eosinophils/100 WBC (Bld) 1.5 % Normal 0.0-8.0 [facility] Comment on above: Order Comment: Order Added by Discern Expert. Performed By: #### 2 748045, 70209642, 1804371, 5758532, 6929479, 3340593 #### [facility] [address] [place] [address] 95950 Eosinophils/Leukocyte s Auto (Bld) [Pure # fraction] 0.1 E9/L Normal 0.0-0.5 [facility] Comment on above: Order Comment: Order Added by Discern Expert. Performed By: #### 2 545446, 08660428, 2907914, 0509212, 0403052, 8011498 #### [facility] [address] [place] [address] 84687 Lymphocytes/100 WBC (Bld) 15.3 % Normal 14.0-50.0 [facility] Comment on above: Order Comment: Order Added by Discern Expert. Performed By: #### 2 048848, 39791900, 6134521, 4825677, 0963241, 5229927 #### [facility] [address] [place] [address] 99684 Lymphocytes/Leukocyte s Auto (Bld) [Pure # fraction] 1.2 E9/L Normal 1.0-4.0 [facility] Comment on above: Order Comment: Order Added by Discern Expert. Performed By: #### 2 721627, 95384917, 8863906, 2321148, 3939601, 4353877 #### [facility] [address] [place] [address] Monocytes/100 WBC (Bld) 6.4 % Normal 4.0-14.0 [facility] Comment on above: Order Comment: Order Added by Discern Expert. Performed By: #### 2 068576, 24251278, 4583192, 9497060, 1954573, 7928850 #### [facility] [address] [place] [address] Monocytes/Leukocytes Auto (Bld) [Pure # fraction] 0.5 E9/L Normal 0.2-1.0 [facility] Comment on above: Order Comment: Order Added by Valeria Expert. Performed By: #### 2 734385, 35755014, 7090445, 1538229, 4070070, 4858619 #### [facility] [address] [place] [address] Neutrophils/100 WBC (Bld) 76.2 % High 36.0-75.0 [facility] Comment on above: Order Comment: Order Added by Valeria Expert. Performed By: #### 2 581543, 02201127, 2229829, 9641984, 3889507, 2465377 #### [facility] [address] [place] [address] Neutrophils/Leukocyte s Auto (Bld) [Pure # fraction] 6.1 E9/L Normal 2.0-7.5 [facility] Comment on above: Order Comment: Order Added by Valeria Expert. Performed By: #### 2 789456, 41304192, 4708163, 3717077, 2479455, 3572805 #### [facility] [address] [place] [address] BMPon 07-07-2023 Creatinine [Mass/Vol] 0.8 mg/dL Normal 0.5-1.3 [facility] Comment on above: Performed By: #### 2 217041, 74430563, 1641630, 4043492, 4815712, 3604083 #### [facility] [address] [place] [address] Urea nitrogen [Mass/Vol] 13 mg/dL Normal 5-21 [facility] Comment on above: Performed By: #### 2 172279, 09647629, 3090256, 8910795, 1329316, 3581929 #### [facility] [address] [place] [address] Urea nitrogen/Creatinine [Mass ratio] 16 No Units Normal 10-20 [facility] Comment on above: Performed By: #### 2 203174, 35391979, 8415428, 1911729, 3024455, 5891303 #### [facility] [address] [place] [address] Anion gap [Moles/Vol] 14 mmol/L Normal 6-16 [facility] Comment on above: Performed By: #### 2 987023, 32114921, 3194035, 9528688, 8188558, 4149633 #### [facility] [address] [place] [address] Calcium [Mass/Vol] 8.7 mg/dL Low 8.9-11.1 [facility] Comment on above: Performed By: #### 2 973359, 52238764, 9776853, 8519825, 2700482, 8798672 #### [facility] [address] [place] [address] Chloride [Moles/Vol] 100 mmol/L Low 101-111 [facility] Comment on above: Performed By: #### 2 719544, 47201352, 2366194, 9576347, 2905875, 3767629 #### [facility] [address] [place] [address] CO2 [Moles/Vol] 26 mmol/L Normal 21-31 [facility] Comment on above: Performed By: #### 2 158645, 76438790, 1918294, 1149125, 1263590, 6811726 #### [facility] [address] [place] [address] Glucose [Mass/Vol] 137 mg/dL Normal 55-199 [facility] Comment on above: Result Comment: If t his glucose result represents a fasting glucose, interpretation should refer to the following reference range: 55-99 mg/dL Performed By: #### 2 685483, 88524632, 0281659, 2771530, 6608215, 6854117 #### [facility] [address] [place] [address] Potassium [Moles/Vol] 4.3 mmol/L Normal 3.5-5.3 [facility] Comment on above: Performed By: #### 2 439492, 79408971, 3078685, 9766848, 4380859, 9739431 #### [facility] [address] [place] 9485457 Sodium [Moles/Vol] 136 mmol/L Normal 135-145 [facility] Comment on above: Performed By: #### 2 051546, 91019567, 4841637, 2440759, 9945082, 3505498 #### [facility] [address] [place] [address] 15326 BNPon 07-07-2023 Natriuretic peptide B (Bld) [Mass/Vol] 756 pg/mL High 5-80 [facility] Comment on above: Performed By: #### 2 657310, 10636840, 4216766, 5603220, 3668280, 7101458 #### [facility] [address] [place] [address] CBC w/ Auto Diffon Erythrocyte distribution width (RBC) [Ratio] 13.8 % Normal 10.9-14.2 [facility] Comment on above: Performed By: #### 2 060010, 32321303, 3653512, 4252971, 6539913, 7408937 #### [facility] [address] [place] [address] Hematocrit (Bld) [Volume fraction] 40.3 % Normal 34.0-46.0 [facility] Comment on above: Performed By: #### 2 414850, 90011277, 6739060, 3769689, 0050710, 1581792 #### [facility] [address] [place] [address] Hemoglobin (Bld) [Mass/Vol] 13.0 g/dL Normal 12.0-16.0 [facility] Comment on above: Performed By: #### 2 826234, 31221801, 8900892, 2160800, 2521493, 5741720 #### [facility] [address] [place] [address] MCH (RBC) [Entitic mass] 29.2 pg Normal 27.0-34.0 [facility] Comment on above: Performed By: #### 2 725288, 74944854, 2083637, 3825632, 9136236, 1198470 #### [facility] [address] [place] [address] MCHC (RBC) [Mass/Vol] 32.3 g/dL Normal 31.4-36.0 [facility] Comment on above: Performed By: #### 2 697549, 44980607, 0794872, 5454040, 9503315, 5520071 #### [facility] [address] [place] [address] 21626 MCV (RBC) [Entitic vol] 90.2 fL Normal 80.0-100.0 [facility] Comment on above: Performed By: #### 2 144287, 67539844, 7457747, 3422981, 1164049, 1065110 #### [facility] [address] [place] [address] Platelet mean volume (Bld) [Entitic vol] 8.5 fL Normal 6.4-10.8 [facility] Comment on above: Performed By: #### 2 840233, 63113453, 5515197, 7454450, 1893014, 7605786 #### [facility] [address] [place] [address] Platelets (Bld) [#/Vol] 291.0 E9/L Normal 150.0-500.0 [facility] Comment on above: Performed By: #### 2 297377, 05527059, 2336056, 6392492, 0998275, 4885203 #### [facility] [address] [place] [address] RBC (Bld) [#/Vol] 4.5 E12/L Normal 4.3-5.9 [facility] Comment on above: Performed By: #### 2 629623, 71367607, 0749220, 4895071, 4823548, 2368582 #### [facility] [address] [place] [address] WBC corrected for nucl RBC Auto (Bld) [#/Vol] 8.0 E9/L Normal 4.0-11.0 [facility] Comment on above: Performed By: #### 2 885695, 58924632, 3012827, 0657300, 0480056, 7619219 #### [facility] [address] [place] [address] CHEMISTRYOrdered By: SYSTEM SYSTEM on 07-07-2023 Troponin I.cardiac [Mass/Vol] 42.10 pg/mL Invalid Interpretation Code 10.10 - 27.10 pg/mL [facility] Remisol Comment on above: [...] Sensitivity Troponin I Instructions For Use, [employer] [place], March 2018) Anion gap [Moles/Vol] 14 mmol/L [...] 77 mL/min/1.73 m2 Normal >=59mL/min/1 .73 m2 [facility] Chem S Comment on [...] mg/dL [facility] Remisol Urea nitrogen/Creatinine [Mass ratio] 16 mg/mg Normal 10 - 20 [facility] Remisol CHEMISTRYOrdered By: Margaret Collier on 07-07-2023 Natriuretic peptide B (Bld) [Mass/Vol] 756 pg/mL High 5 - 80 pg/mL [facility] HemeManSS COAGULATIONOrdered By: Fay Tran on 07-07-2023 aPTT Coag (PPP) [Time] 28.4 s Normal 25.1 - 36.5 second(s) [facility] Auto Coag Comment on [...] the same coagulation reagent and instrumentation as [facility]. Currently there are no coagulation studies available worldwide for children to 14 days, and no normal ranges. Heparin therapeutic range (represented by Anti-Factor Xa activity of 0.2 - 0.4 U/mL) corresponds to PTT of 56.6 - 109.0 sec. INR Coag (PPP) [Relative time] 1.0 {INR} Invalid Interpretation Code [facility] Auto Coag Comment on above: Interpretive Data: I NR results are specifically intended to assess patients stabilized on long-term Anticoagulation therapy suggested INR s Less Intensive Anticoagulation 2.0 3.0 Conventional Range 3.0 4.5 PT Coag (PPP) [Time] 11.3 s Normal 9.4 - 1 2.5 second(s) [facility] Auto Coag Comment on [...] the same coagulation reagent and instrumentation as [facility]. Currently there are no coagulation studies available worldwide for children to 14 days, and no normal ranges. Consent for Procedure/Surger yon 07-07-2023 Consent for Procedure/Surgery [id number]# 1.00TIFF Normal [facility] Consent for Treatmenton 06-15 Consent for Treatment [id number]#1 .00[address] [facility] Discharge Instructionson Discharge Instructions [id number]#1 [address]00TI[address] Normal [facility] ED Clinical Summaryon 2022 ED Clinical Summary [place] [id number] ED Clinical Summary Person Information Name: HARJIT ASENCIO I Patricia/[facility] Age: 73 Years : 1950 Sex: Female Language: Bahraini PCP: Peggy Nazario MD Marital Status: Visit [...] 07/07/2023 13:04:13 07/07/2023 13:04:13 07/07/2023 13:04:13 ADDRESS: [address] [place] [address] [address] [facility] [phone] PHYS DOC NOTES: MEDICAL INFORMATION: Prescriptions Given: [...] up: With: Address: When: Johan HENRIQUEZ [address] [place] [address] [phone] Business (1) In 3 days 07/10/2023 With: Address: When: Peggy Bermudezby [address] [place] [address] [employer] (1) In 3 days 07/10/2023 DIAGNOSIS: A-fib; Anxiety Normal 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 Normal [facility] ED Patient Education Noteon 07-07-2023 ED [...] signals of the heart. ? An ambulatory cardiac exercise specialist to record your heart's activity for a [...] Trouble breathing. (more content not included)... Normal [facility] ED Patient Summaryon 023 ED Patient Summary [place] [id number] Patient Discharge Instructions Person Information Name: HARJIT ASENCIO I Age: 73 Years Arrival Date: 07/07/2023 08:56:07 Discharge Diagnosis: A-fib; Anxiety Primary Care Physician: Peggy Nazario MD Provider Information Primary Provider: Jeff Cross DO Advanced Bar Roller:Noe Black PA-C The exam and treatment you received in the Emergency Department were for an urgent problem and are not intended as complete care. It is important that you follow up with a doctor, nurse practitioner, or physician?s emergency medicine physician assistant for ongoing care. If your symptoms become worse or you do not improve as expected and you are unable to reach your usual health care provider, you should return to the Emergency Department. We are available 24 hours a day. CLAIRE ASENCIOYCStas Ruiz has been given the following list of patient education materials, prescriptions and follow-up instructions: Follow-up Instructions: With: Address: When: Johan MARTINEZ [address] [place] [phone] [employer] (1) In 3 days 07/10/2023 With: Address: When: Peggy Bermudezby [address] [place] [address] [employer] (1) In 3 days 07/10/2023 In the event that this physician does not participate in your insurance network, please consult with your insurance company to find a nearby participating provider. Patient Education Materials: Managing Anxiety, Adult; Atrial Fibrillation A MESSAGE TO ALL PATIENTS REGARDING OPIOIDS PRESCRIPTION OPIOIDS: WHAT YOU NEED TO KNOW Prescription opioids can be used to help relieve qhpvcoyx-ga-ypwezd pain and are often prescribed following a [...] addiction, tel (more content not included)... Normal [facility] HEMATOLOGYOrdered By: SYSTEM SYSTEM on 07-07-2023 [...] 76.2 % High 36.0 - 75.0 % [facility] Neutrophils/Leukocyte s Auto (Bld) [Pure # fraction] 6.1 E9/L Normal 2.0 - 7.5 E9/L [facility] HEMATOLOGYOrdered By: Sharifa Castillo on 07-07-2023 [...] 8.0 E9/L Normal 4.0 - 11.0 E9/L [facility] HemeAutoSS Insurance Correspondence Off iceon 07-07-2023 Insurance Correspondence Office [id number]#1 .00TIFF [address] [facility] Monitor Recordon 07-07-2023 Monitor Record [id number]# 1.00TIFF Normal [facility] Monitor Record [id number]# 1.00TIFF Normal [facility] Monitor Record [id number]# 1.00TIFF Normal [facility] PT & PTTon 07-07-2023 aPTT Coag (PPP) [Time] 28.4 second(s) Normal 25.1-36.5 [facility] Comment on above: Result Comment: Para [...] the same coagulation reagent and instrumentation as [facility]. Currently there are no coagulation studies available worldwide for children to 14 days, and no normal ranges. Heparin therapeutic range (represented by Anti-Factor Xa activity of 0.2 - 0.4 U/mL) corresponds to PTT of 56.6 - 109.0 sec. Performed By: #### 2 076563, 31345157, 6515214, 1184989, 8635029, 4580231 #### [facility] [address] [place] [address] INR Coag (PPP) [Relative time] 1.0 {INR} Invalid Interpretation Code [facility] Comment on above: Result Comment: INR results are specifically intended to assess patients stabilized on long-term Anticoagulation therapy suggested INR?s ?Less Intensive Anticoagulation? 2.0 ? 3.0 Conventional Range 3.0 ? 4.5 Performed By: #### 2 617695, 11253283, 1955969, 3754852, 9836485, 0296207 #### [facility] [address] [place] [address] PT Coag (PPP) [Time] 11.3 second(s) Normal 9.4-12.5 [facility] Comment on above: Result Comment: 15 [...] the same coagulation reagent and instrumentation as [facility]. Currently there are no coagulation studies available worldwide for children to 14 days, and no normal ranges. Performed By: #### 2 445942, 76928470, 6683937, 6051427, 8352526, 8118977 #### [facility] [address] [place] [address] Troponin 0 Hr.on 07-07-2023 Troponin I.cardiac [Mass/Vol] 39.60 pg/mL Abnormal 10.10-27.10 [facility] Comment on above: Result Comment: Crit [...] Sensitivity Troponin I Instructions For Use, [employer] [place], March 2018) Performed By: #### 2 655314, 79521193, 8457357, 2405028, 6527188, 8364808 #### [facility] [address] [place] [address] Troponin 3 Hr.on 07-07-2023 Troponin I.cardiac [Mass/Vol] 42.10 pg/mL Abnormal 10.10-27.10 [facility] Comment on above: Result Comment: Crit [...] High Sensitivity Troponin I Instructions For Use, [employer], March 2018) Performed By: #### 1 [id number] ####[facility] [address] [place] [address] XR Chest Single Viewon 07-07 XR Chest [...] Bronchopneumonia should be excluded clinically. Ordering Provider: Noe Black FINAL REPORT Dictated: 07/07/2023 12:20 pm London Padilla MD Signed (Electronic Signature): 07/07/2023 12:20 pm Signed by: London Padilla MD Transcribed by: ARAVIND Technologist: TABITHA Technical Comments Radiation Dose: Ka,r in mGy = na DAP = na Normal [facility] eGFRon 07-07-2023 GFR/1.73 sq M.predicted among non-blacks MDRD (S/P/Bld) [Vol rate/Area] 77 mL/min/1.73 m2 Normal >=59 [facility] Comment on above: Order Comment: Order added by Discern Expert. Result Comment: Consumer Insight Analyst luis kidney disease could be indicated at eGFR's of less than 60 mL/min/1.73m2. Kidney failure is indicated at less than 15 mL/min/1.73m2. Performed By: #### 2 982311, 87484071, 8535426, 7885743, 7756040, 3323885 #### [facility] [address] [place] [address] BMPon 07-06-2023 Anion gap [Moles/Vol] 5 mmol/L Low 6-16 [facility] Comment on above: Performed By: #### 2 814209, 55575250, 0264780, 6310863, 1714348, 3762590 #### [facility] [address] [place] [address] Calcium [Mass/Vol] 8.0 mg/dL Low 8.9-11.1 [facility] Comment on above: Performed By: #### 2 540678, 90801291, 9317582, 5664382, 8394587, 7349216 #### [facility] [address] [place] [address] Chloride [Moles/Vol] 109 mmol/L Normal 101-111 [facility] Comment on above: Performed By: #### 2 055760, 27960465, 4686520, 9622343, 6127222, 2261004 #### [facility] [address] [place] [address] CO2 [Moles/Vol] 28 mmol/L Normal 21-31 [facility] Comment on above: Performed By: #### 2 355000, 21742300, 9090848, 9724199, 0885070, 4224110 #### [facility] [address] [place] [address] Creatinine [Mass/Vol] 0.7 mg/dL Normal 0.5-1.3 [facility] Comment on above: Performed By: #### 2 459729, 76363466, 8139235, 6064085, 9683910, 1061400 #### [facility] [address] [place] [address] Glucose [Mass/Vol] 91 mg/dL Normal 55-199 [facility] Comment on above: Result Comment: If t his glucose result represents a fasting glucose, interpretation should refer to the following reference range: 55-99 mg/dL Performed By: #### 2 260362, 69783678, 0648510, 3146848, 3420223, 8198557 #### [facility] [address] [place] [address] Potassium [Moles/Vol] 3.9 mmol/L Normal 3.5-5.3 [facility] Comment on above: Performed By: #### 2 306016, 88474886, 5014154, 4887192, [id number], [id number] #### [facility] [address] [place] [address] Sodium [Moles/Vol] 138 mmol/L Normal 135-145 [facility] Comment on above: Performed By: #### 2 [id number], [id number], [id number], [id number], [id number], [id number] #### [facility] [address] [place] [address] Urea nitrogen [Mass/Vol] 12 mg/dL Normal 5-21 [facility] Comment on above: Performed By: #### 2 [id number], [id number], [id number], [id number], [id number], [id number] #### [facility] [address] [place] [address] Urea nitrogen/Creatinine [Mass ratio] 17 No Units Normal 10-20 [facility] Comment on above: Performed By: #### 2 [id number], [id number], 2656042, [id number], [id number], [id number] #### [facility] [address] [place] [address] CHEMISTRYOrdered By: SYSTEM SYSTEM on 07-06-2023 Anion gap [Moles/Vol] 5 mmol/L Low 6 - 16 mEq/L [facility] Remisol Calcium [Mass/Vol] 8.0 mg/dL Low 8.9 - 11. 1 mg/dL [facility] Remisol Chloride [Moles/Vol] 109 mmol/L Normal 101 - 1 11 mmol/L [facility] Remisol CO2 [Moles/Vol] 28 mmol/L Normal 21 - 31 mmol/L [facility] Remisol Creatinine [Mass/Vol] 0.7 mg/dL Normal 0.5 - 1.3 mg/dL [facility] Remisol GFR/1.73 sq M.predicted among non-blacks MDRD (S/P/Bld) [Vol rate/Area] 90 mL/min/1.73 m2 Normal >=59mL/min/1 .73 m2 [facility] Chem S Comment on above: Interpretive Data: C hronic kidney disease could be indicated at eGFR's of less than 60 mL/min/1.73m2. Kidney failure is indicated at less than 15 mL/min/1.73m2. Glucose [Mass/Vol] 91 mg/dL Normal 55 - 199 mg/dL [facility] Remisol Comment on above: Interpretive Data: I f this glucose result represents a fasting glucose, interpretation should refer to the following reference range: 55-99 mg/dL Potassium [Moles/Vol] 3.9 mmol/L Normal 3.5 - 5.3 mmol/L [facility] Remisol Sodium [Moles/Vol] 138 mmol/L Normal 135 - 145 mmol/L [facility] Remisol Urea nitrogen [Mass/Vol] 12 mg/dL Normal 5 - 21 mg/dL [facility] Remisol Urea nitrogen/Creatinine [Mass ratio] 17 mg/mg Normal 10 - 20 [facility] Remisol Discharge Note-Nursingon Discharge Note-Nursing HARJIT ASENCIO I :1950 Visit Date:07/02/2023 Inpatient Discharge Instructions Your Care Team Admitting Physician - Noman PATTON DO Consulting Physician - DYLAN MCMAHON, Cody Goff MD, Eb Yeh [facility] Cardio, XXXX Reason for [...] mils per day fluid restriction Pharmacy Information Chepe Humphreys Previously Scheduled Follow-Up Appointments Monday 1:00 PM EDT With: CECILIA MCMAHON, Micheline Morgan Where: [facility] Inpatient Clinical Summaryon 07-06-2023 Inpatient Clinical Summary [address] [address] Clinical Summary Person Information: Name: HARJIT ASENCIO I Age: 73 Years : 1950 Sex: Female PCP: Peggy Nazario MD Marital Status: Race: White Ethnicity: Non- or Language: Bahraini Visit Id: Visit Reason: Genitourinary problem; 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 Speciality: Acuity: Enc Type: Observation Med Service: Medical Arrival: 07/02/2023 21:17:31 Discharge: Dispo Type: Admitted as IP to this Hosp Address: [address] [place] [address] [address] [facility] [phone] Provider Notes: Diagnosis: 1:Atrial fibrillation with RVR; [...] Physician: Shell MCMAHON, Eb Yeh; DYLAN MCMAHON, Cody Dumont; [facility] Cardio, XXXX Referring Physician: Follow up: With: Address: When: Johan HENRIQUEZ [address] [place] [phone] Business (1) Within 2 weeks Comments: Call for followup appointment With: Address: When: Peggy Nazario [address] [place] [address] Business (1) 07/10/2023 1:00 PM With: Address: When: Micheline BROOKS [facility], [address] [place] [address] Business (1) Comments: Call for followup appointment re: the indwelling Robles catheter. Type Location Start [facility] [place] [facility] Office Visit [facility] WILL Silva 11/22/2023 1:00 PM 11/22/2023 1:15 PM Confirmed Patient Education Information: CV - Cardiovascular Discharge Instructions (Custom) Normal [facility] Inpatient Patient Summaryon 07-06-2023 Inpatient Patient Summary [address] [id number] Patient Discharge Instructions PERSON INFORMATION Name: HARJIT ASENCIO I Date of : 1950 Current [...] thrombosis (DVT) prophylaxis Condition at Discharge: Improved HARJIT ASENCIO I has been given the following [...] Follow up: With: Address: When: Johan HENRIQUEZ [address] [place] [phone] Business (1) Within 2 weeks Comments: Call for followup appointment With: Address: When: Peggy Nazario [address] [place] [address] [employer] (1) 07/10/2023 1:00 PM With: Address: When: Micheline BROOKS [facility], [address], [place] [address] [employer] (1) Comments: Call for followup appointment re: the indwelling Robles catheter. In the event that this physician does not participate in your insurance network, please consult with your insurance company to find a nearby participating provider. Type Location Start [facility] Office Visit [facility] WILL Silva 11/22/2023 1:00 PM 11/22/2023 1:15 PM Confirmed Comment: ELIF Ruiz JOYCE I, have received the attached patient education materials/instruction s and have verbalized understanding: Patient Signature Date Clinican/Nurse Signature Date HERE ARE THE MEDICATION CHANGES THAT OCCURRED DURING YOUR HOSPITAL STAY New Medications [id number], [address] [place], [place] [id number], [phone] apixaban (Eliquis 5 mg oral tablet) 1 [...] day. Refills (more content not included)... Normal [facility] Interdisciplinary Note - Tico e Manageron 07-06-2023 Interdisciplinary Note - Paint Booth Operator Pt is awake and alert in bed, previously rounded with Dr. Serrato. Await cardiology to see and anticipate DC home later today. Declines any concerrns or DC needs. Brilinta was priced out yesterday $183 and coupon provided. . PCP verified and insurance information reviewed and DME discussed. Contact information provided and white board updated. Normal [facility] Comment on above: Result Comment: Elec tronically Signed By: Martín ALFORD, Radha\.br\Date and Time Signed: 07/06/23 12:06 EST Monitor Recordon 07-06-2023 Monitor Record [id number]# 1.00TIFF [facility] Monitor Record [id number]# 1.00TIFF [facility] Monitor Record [id number]# 1.00TIFF [facility] Progress Note-Physicianon Progress Note-Physician Assessment/Plan 73-year-old female with history of ureteral stricture with previous dilations, anxiety disorder presented with complaints of urinary hesitancy, constipation, cough and shortness of breath and was admitted to [facility] with acute paroxysmal atrial fibrillation with [...] IV Cardizem drip. Continue on Coreg, digoxin. Insurance Risk Manager debating on starting patient on amiodarone. Eliquis to start in 4 days after cardiac catheterization. Ordered: [facility] Care/Day Moderate 35 Minutes 80676 2. Acute systolic congestive heart failure (I50.21: Acute systolic (congestive) heart failure) Acute systolic congestive heart failure?present on admission. Seen by bracelet and brooch maker and underwent cardiac catheterization that showed mild coronary artery disease. Also shows severe mitral regurgitation and tricuspid regurgitation with ejection fraction of 30 to 35%. Continue on aspirin, Coreg, losartan and Lasix. Ordered: [facility] Care/Day Moderate 35 Minutes 03686 3. Severe mitral regurgitation (I34.0: Nonrheumatic mitral (valve) insufficiency) As seen on cardiac catheterization. Patient will follow-up with bracelet and brooch maker for HAROON and then valvular repair. Insurance Risk Manager also considering transferring patient to or [facility]. Ordered: [facility] Care/Day Moderate 35 Minutes 22043 4. Elevated troponin (R79.89: Other specified abnormal findings of blood chemistry) Secondary to type II non-ST segment elevation myocardial infarction from above and mild coronary artery disease.. Seen by bracelet and brooch maker and underwent cardiac catheterization that showed mild coronary artery disease. Continue on aspirin, Lipitor, and Coreg. Ordered: [facility] Care/Day Moderate 35 Minutes 11053 5. Mild coronary artery disease (I25.10: Atherosclerotic heart disease of [place] coronary artery without angina pectoris) As seen on cardiac catheterization on 07/05/2023. Continue on Lipitor and aspirin. Ordered: [facility] Care/Day Moderate 35 Minutes 82082 6. anxiety (F41.9: Anxiety disorder, unspecified) Increase [...] deep vein thrombosis (DVT) prophylaxis (Z79.899: Other information security risk analyst (current) drug therapy) SCDs. Eliquis to resume in 4 days. Disposition: Home soon today if heart rate is under good control with plans to follow-up with bracelet and brooch maker and urologist as outpatient. However if heart rate is still elevated then we will call [facility] or [facility] to see if we can transfer patient for valve repair/replacement. I discussed the diagnosis and plan of care with the patient at the bedside. Moderate level of MDM based on addressing above issues. This documentation was transcribed using voice recognition software. Several attempts were made to ensure accuracy. However inadvertent computerized cable mock up assembler errors may be present. Nahid Serrato. Hospitalist. [...] Panel eGF (more content not included)... Normal [facility] Comment on above: Result Comment: Elec tronically Signed By: JAZMÍN MCMAHON, Mbanefo\.br\Date and Time Signed: 07/06/23 11:56 EST Progress [...] she is going to get to the [facility] or [facility] for mitral valve/tricuspid valve surgery. Despite all [...] to transfer the patient directly to the [facility] or [facility] given her logistic challenges with getting [...] artery disease (I25.10: Atherosclerotic heart disease of [place] coronary artery without angina pectoris) 6. Pleural effusion (J90: Pleural effusion, not elsewhere classified) 7. Urinary hesitancy (R39.11: Hesitancy of micturition) 8. Other urethral stricture, female (N35.82: Oth (more content not included)... Normal [facility] Comment on above: Result Comment: Elec tronically Signed By: MARTINEZ MCMAHON, Johan Patino\.br\Date and Time Signed: 07/06/23 09:22 EST eGFRon 07-06-2023 GFR/1.73 sq M.predicted among non-blacks MDRD (S/P/Bld) [Vol rate/Area] 90 mL/min/1.73 m2 Normal >=59 [facility] Comment on above: Order Comment: Order Added by Discern Expert. Result Comment: Consumer Insight Analyst luis kidney disease could be indicated at eGFR's of less than 60 mL/min/1.73m2. Kidney failure is indicated at less than 15 mL/min/1.73m2. Performed By: #### 2 [id number], [id number], 6733562, 4360054, 2491129, 3500386 #### [facility] [address] [place] [address] BMPon 07-05-2023 Anion gap [Moles/Vol] 9 mmol/L Normal 6-16 [facility] Comment on above: Performed By: #### 1 [id number], [id number] ####[facility] [address] [place] [address] Calcium [Mass/Vol] 8.2 mg/dL Low 8.9-11.1 [facility] Comment on above: Performed By: #### 1 9685059, 6723143 ####[facility] [address] [place] [address] Chloride [Moles/Vol] 105 mmol/L Normal 101-111 [facility] Comment on above: Performed By: #### 1 7668818, 1628618 ####[facility] [address] [place] [address] CO2 [Moles/Vol] 27 mmol/L Normal 21-31 [facility] Comment on above: Performed By: #### 1 [id number], 2275894 ####[facility] [address] [place] [address] Creatinine [Mass/Vol] 0.7 mg/dL Normal 0.5-1.3 [facility] Comment on above: Performed By: #### 1 [id number], 4492664 ####[facility] [address] [place] [address] Glucose [Mass/Vol] 115 mg/dL Normal 55-199 [facility] Comment on above: Result Comment: If t his glucose result represents a fasting glucose, interpretation should refer to the following reference range: 55-99 mg/dL Performed By: #### 1 [id number], 4974820 ####[facility] [address] [place] [address] Potassium [Moles/Vol] 4.3 mmol/L Normal 3.5-5.3 [facility] Comment on above: Performed By: #### 1 9000849, 5752678 ####[facility] [address] [place] [address] Sodium [Moles/Vol] 137 mmol/L Normal 135-145 [facility] Comment on above: Performed By: #### 1 1419687, 8033172 ####[facility] [address] [place] [address] Urea nitrogen [Mass/Vol] 13 mg/dL Normal 5-21 [facility] Comment on above: Performed By: #### 1 1226004, 7491347 ####[facility] [address] [place] [address] Urea nitrogen/Creatinine [Mass ratio] 19 No Units Normal 10-20 [facility] Comment on above: Performed By: #### 1 [id number], 2868301 ####[facility] [address] [place] [address] CHEMISTRYOrdered By: SYSTEM SYSTEM on 07-05-2023 Anion gap [Moles/Vol] 9 mmol/L Normal 6 - 16 mEq/L F [facility] Remisol Calcium [Mass/Vol] 8.2 mg/dL Low 8.9 - 11. 1 mg/dL FT Remisol Chloride [Moles/Vol] 105 mmol/L Normal 101 - 1 11 mmol/L FT Remisol CO2 [Moles/Vol] 27 mmol/L Normal 21 - 31 mmol/L [facility] Remisol Creatinine [Mass/Vol] 0.7 mg/dL Normal 0.5 - 1.3 mg/dL [facility] Remisol GFR/1.73 sq M.predicted among non-blacks MDRD (S/P/Bld) [Vol rate/Area] 90 mL/min/1.73 m2 Normal >=59mL/min/1 .73 m2 [facility] S Comment on above: Interpretive Data: C hronic kidney disease could be indicated at eGFR's of less than 60 mL/min/1.73m2. Kidney failure is indicated at less than 15 mL/min/1.73m2. Glucose [Mass/Vol] 115 mg/dL Normal 55 - 199 mg/dL [facility]isol Comment on above: Interpretive Data: I f this glucose result represents a fasting glucose, interpretation should refer to the following reference range: 55-99 mg/dL Potassium [Moles/Vol] 4.3 mmol/L Normal 3.5 - 5.3 mmol/L FT Remisol Sodium [Moles/Vol] 137 mmol/L Normal 135 - 145 mmol/L [facility] Remisol Urea nitrogen [Mass/Vol] 13 mg/dL Normal 5 - 21 mg/dL [facility] Remisol Urea nitrogen/Creatinine [Mass ratio] 19 mg/mg Normal 10 - 20 [facility] Remisol CHEMISTRYOrdered By: Lab ROP User on 07-05-2023 Glucose [Mass/Vol] 79 mg/dL Normal 55 - 99 mg/dL [facility] POC Subsection Comment on above: Result Comment: Neli cain RN/ POC Username NIKHIL PAULSON Invalid Interpretation Code [facility] POC Subsection Sodium [Moles/Vol] 688982122935 mmol/L Invalid Interpretation Code [facility] POC Subsection Sodium [Moles/Vol] 754879663 mmol/L Invalid Interpretation Code [facility] POC Subsection Capillary Glucose POCon 06-15 Glucose [Mass/Vol] 79 mg/dL Normal 55-99 [facility] Comment on above: Result Comment: Neli PIÑA Performed By: #### 1 [id number] #### [facility] [address] [place] [address] Cardiovascular Reporton 06-15 Cardiovascular Report [id number]# 1.00TIFF Normal [facility] Monitor Recordon 07-05-2023 Monitor Record [id number]# 1.00TIFF Normal [facility] Monitor Record [id number]# 1.00TIFF Normal [facility] Monitor Record [id number]# 1.00TIFF Normal [facility] Monitor Record [id number]# 1.00TIFF Normal [facility] Monitor Record [id number]# 1.00TIFF Normal [facility] Operative Reporton Operative Report SURGERY DATE: [...] an exchange length J-wire. Next a 4 Croatian sheath was placed without complications and flushed with heparinized saline. Next the right femoral vein was accessed with a single anterior stick of a Cook needle followed by placement of a short J-wire under fluoroscopic guidance. Next a 7 Croatian sheath was placed without complications and flushed with heparinized saline. Next a balloon tip [place] catheter was advanced under fluoroscopic guidance into [...] by thermal was 2.57. Next a 4 Croatian angled pigtail catheter was easily advanced into the left ventricular chamber. AO saturation was 84%. PA saturation was 46%. Simultaneous LV and wedge pressure demonstrated a large V wave indicating severe mitral regurgitation. Simultaneous LV and RV pressures demonstrated no overt evidence of pericardial constriction although the patient is in atrial fibrillation making that somewhat problematic. [place]ois catheter was then removed. The LV angiogram performed in the 30 degree right anterior oblique position demonstrated severe global LV dysfunction with an ejection fraction around 25-30%. There was severe mitral regurgitation which completely filled the left atrium after the second beat. There was no significant gradient seen on pullback. Next the pigtail catheter was exchanged over a wire for a 4 Croatian JL5 catheter. This was easily engaged into [...] exchanged over a wire for a 4 Croatian 3DRC catheter. This was easily engaged into the right coronary artery. There was no dampening or ventricularization upon engagement. Right coronary artery: The right coronary artery is a moderate size dominant vesse (more content not included)... Normal [facility] Comment on above: Result Comment: Elec tronically Signed By: MARTINEZ MCMAHON, Johan Patino\.zak\Date and Time Signed: 07/05/23 11:46 EST Progress Note-Nurseon 2022 Progress Note-Nurse wharf labourer made aware patient last dose of lovenox was given on 07/04/23 @ 93[address]. Normal [facility] Progress Note-Physicianon Progress Note-Physician Assessment/Plan 73-year-old female with history of ureteral stricture with previous dilations, anxiety disorder presented with complaints of urinary hesitancy, constipation, cough and shortness of breath and was admitted to [facility] with acute paroxysmal atrial fibrillation with [...] date 07/06/23 9:00:00 EST, 07/05/23 11:13:00 EST [facility] Care/Day Moderate 35 Minutes 85858 2. Acute systolic congestive heart failure (I50.21: Acute systolic (congestive) heart failure) Acute systolic congestive heart failure?present on admission. Seen by bracelet and brooch maker. She is status post cardiac catheterization that showed mild coronary artery disease. Also showed severe mitral regurgitation and tricuspid regurgitation.. Ejection fraction of 30 to 35%. Continue on aspirin, Coreg, losartan, Lasix. Ordered: [facility] Care/Day Moderate 35 Minutes 96385 3. Severe mitral regurgitation (I34.0: Nonrheumatic mitral (valve) insufficiency) Severe mitral regurgitation?seen on cardiac catheterization. Follow-up with bracelet and brooch maker as outpatient for HAROON and then valvular repair. Ordered: [facility] Care/Day Moderate 35 Minutes 35945 4. Elevated troponin (R79.89: Other specified abnormal findings of blood chemistry) Secondary to type II non-ST segment elevation myocardial infarction from above and mild coronary artery disease.. Seen by bracelet and brooch maker and underwent cardiac catheterization that showed mild coronary artery disease. Continue on aspirin, Lipitor, and Coreg. Ordered: furosemide, 40 mg = 1 tab(s), Tab, Oral, Daily, Routine, Start date 07/06/23 9:00:00 EST, 07/05/23 11:13:00 EST [facility] Care/Day Moderate 35 Minutes 03572 5. Mild coronary artery disease (I25.10: Atherosclerotic heart disease of [place] coronary artery without angina pectoris) As seen on cardiac catheterization on 07/06/2023. Continue on Lipitor and aspirin. Ordered: [facility] Care/Day Moderate 35 Minutes 29364 6. Pleural effusion (J90: Pleural effusion, not [...] deep vein thrombosis (DVT) prophylaxis (Z79.899: Other information security risk analyst (current) drug therapy) Lovenox. Disposition: Home in a.m. to follow-up with bracelet and brooch maker and urologist. I discussed the diagnosis and plan of care with the patient at the bedside. Moderate level of MDM based on addressing above issues. This documentation was transcribed using voice recognition software. Several attempts were made to ensure accuracy. However inadvertent computerized cable mock up assembler errors may be present. Nahid Serrato. Hospitalist. [...] Output This (more content not included)... Normal [facility] Comment on above: Result Comment: Elec tronically Signed By: JAZMÍN MCMAHON, Nahid\.br\Date and Time Signed: 07/05/23 11:19 EST eGFRon 07-05-2023 GFR/1.73 sq M.predicted among non-blacks MDRD (S/P/Bld) [Vol rate/Area] 90 mL/min/1.73 m2 Normal >=59 [facility] Comment on above: Order Comment: Order added by Discern Expert. Result Comment: Consumer Insight Analyst luis kidney disease could be indicated at eGFR's of less than 60 mL/min/1.73m2. Kidney failure is indicated at less than 15 mL/min/1.73m2. Performed By: #### 1 [id number], [id number] ####[facility] [address] [place] [address] Monitor Recordon 07-04-2023 Monitor Record [id number]# 1.00TIFF Normal [facility] Monitor Record [id number]# 1.00TIFF Normal [facility] Monitor Record [id number]# 1.00TIFF Normal [facility] Monitor Record [id number]# 1.00TIFF Normal [facility] Patient Education - Texton 1 09-03-2022 Patient Education - Text [facility] Progress Note-Physicianon Progress Note-Physician Assessment/Plan 73-year-old female with history of ureteral stricture with previous dilations, anxiety disorder presented with complaints of urinary hesitancy, constipation, cough and shortness of breath and was admitted to [facility] with acute paroxysmal atrial fibrillation with [...] BID, # 60 tab(s), Refills(s) 0, Pharmacy: [id number], 165, cm, 07/02/23 21:30:00 EST, Height/Length Dosing, 55.7, kg, 07/02/23 21:30:00 EST, Weight Dosing Echo Transthoracic [facility] Care/Day Moderate 35 Minutes 81714 2. Acute systolic congestive heart failure (I50.21: Acute systolic (congestive) heart failure) Acute systolic congestive heart failure?present on admission. Cardiology is following. Ejection fraction of 30 to 35%. Cardiology is planning on cardiac catheterization for ischemic work-up in AM. Meanwhile continue on aspirin, Coreg, losartan. We will verify with bracelet and brooch maker about Lasix. Ordered: [facility] Hospital Care/Day Moderate 35 Minutes 08788 3. Elevated troponin (R79.89: Other specified abnormal findings of blood chemistry) Secondary to type II non-ST segment elevation myocardial infarction from above. Echocardiogram shows ejection fraction of 30 to 35%. Insurance Risk Manager following with plans for cardiac catheterization in AM. Meanwhile continue on aspirin and Coreg. Ordered: Echo Transthoracic Complete S[facility]q Hospital Care/Day Moderate 35 Minutes 35444 4. Pleural effusion (J90: Pleural effusion, not elsewhere classified) Small pleural effusion?secondary to acute systolic congestive heart failure. Supportive care. Lasix as needed. Ordered: S[facility] Hospital Care/Day Moderate 35 Minutes 67720 5. Urinary hesitancy (R39.11: Hesitancy of micturition) Secondary to urethral stricture and urinary retention. She is status post Robles catheter placement. Urology consult reviewed by me. I appreciate and agreed recommendations. Patient will discharge with Robles catheter and leg bag to follow-up with urologist as outpatient. Ordered: [facility] Care/Day Moderate 35 Minutes 53671 6. Other urethral stricture, female (N35.82: Other [...] Daily, NOW, Start date 07/03/23 11:16:00 EST [facility] Care/Day Moderate 35 Minutes 69070 9. On deep vein thrombosis (DVT) prophylaxis [...] made to ensure accuracy. However inadvertent computerized cable mock up assembler errors may be present. Nahid Serrato. Hospitalist. [...] -- 176.8 (more content not included)... Normal 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 Normal [facility] Comment on above: Result Comment: Elec tronically Signed By: MARTINEZ MCMAHON, Johan aPtino\.zak\Date and Time Signed: 07/04/23 08:04 EST CHEMISTRYOrdered By: SYSTEM SYSTEM on 07-03-2023 Cholesterol [Mass/Vol] 145 mg/dL Normal 120 - 200 mg/dL [facility] [place] Cholesterol in HDL [Mass/Vol] 43 mg/dL Invalid Interpretation Code [facility] [place] Comment on above: Interpretive Data: H [...] Sensitivity Troponin I Instructions For Use, [employer], March 2018) TSH Qn 3.83 m[IU]/L Normal 0.34 - 5.60 mcIU/mL [facility] Remisol CHEMISTRYOrdered By: Dulce Maria Correa on 07-03-2023 HbA1c (Bld) [Mass fraction] 5.5 % Normal <=5.9% [facility] [place] ChemAutoSS Consultation Noteon 07-03-20 Consultation Note Patient: HARJIT ASENCIO I Age: 73 years Sex: Female [...] day(s), # 14 cap(s), Refills(s) 0, Pharmacy: [facility] #[id number], 165, cm, 06/30/23 19:37:00 EST, Height/Length Dosing, 55.7, kg, 06/30/23 19:37:00 EST, Weight Dosing Cipro 500 mg Tab: 500 mg = 1 tab(s), Oral, As Directed, Patient to take 1 tab the day before procedure and the 2nd tab the day of procedure once completed, # 2 tab(s), Refills(s) 0, Pharmacy: [facility] #[id number], 165, cm, 04/26/23 15:23:00 EDT, Height/Length Do... Estrace 0.1 mg/g Cream: 0.5 gm, Vaginal, MonFri, 42.5 gm, Refill(s) 6 Zofran ODT 4 mg Tab-Dis: 4 mg = 1 tab(s), Oral, q8hr, # 12 tab(s), Refills(s) 0, Pharmacy: [facility] #[id number], 165, cm, 06/30/23 19:37:00 EST, Height/Length Dosing, 55.7, kg, 06/30/23 19:37:00 EST, Weight Dosing Documented Medications Documented Ativan 0.5 mg Tab: 0.5 mg = 1 tab(s), Oral, TID, PRN as needed for anxiety, Refills(s) 0 Problem list: All Problems acid reflux / SNOMED CT 086917784 / Confirmed anxiety / SNOMED CT 85317723 / Confirmed Injury of nose / SNOMED CT 57071918 / Confirmed Superficial laceration of face / SNOMED CT 589242317 / Confirmed Acute gastroenteritis / SNOMED CT 538110420 / Confirmed Other urethral stricture, female / SNOMED CT 357385667 / Confirmed Nocturia / SNOMED CT 566840359 / Confirmed Urinary hesitancy / SNOMED CT 430058414 / Confirmed Former smoker / SNOMED CT 99887030 / Confirmed Urinary frequency / SNOMED CT 672237232 / Confirmed Feeling of incomplete bladder emptying / SNOMED CT 846169813 / Confirmed Urinary urgency / SNOMED CT 047400541 / Confirmed Dysuria / SNOMED CT 03443599 / Confirmed Suprapubic pain / SNOMED CT 175673125 / Confirmed Poor urinary stream / SNOMED CT 256319980 / Confirmed Cystocele with prolapse / SNOMED CT 889167836 / Confirmed Stranguria / SNOMED CT 336113549 / Confirmed History of urethral stricture / SNOMED CT 939686631 / Confirmed Weak urine stream / SNOMED CT 754130306 / Confirmed Atrophic vaginitis / SNOMED CT 36843794 / Confirmed Renal lesion / SNOMED CT 6892885375 / Confirmed Histories Past Medical History: Active acid reflux (253604229) anxiety (13863204) Acute gastroenteritis (366488968) Family History: Heart disease Father Diabetes mellitus type 2 Mother Procedure history: Cystourethroscopy with dilation of urethral stricture (748434691) on 10/25/2022 at 72 Years. Cystoscopy/UD (66394199) on 02/23/2021 at 70 Years. Dilation of urethra (34557858) on 02/01/2019 at 68 Years. Cysto/ UD (297612731) on 10/10/2017 at 67 Years. Hysterectomy. colon resection. Corneal implant (986583676). Tonsillectomy (417835394). Dilation of urethra (03840828). Comments: 08/09/2019 13:23 EST - Darshan SALAS, Tim Velazco (more content not included)... Normal [facility] Comment on above: Result Comment: Elec tronically Signed By: DYLAN MCMAHON, Cody Uriarte\Date and Time Signed: 07/03/23 19:12 EST ED Clinical Summaryon 2022 ED Clinical Summary [address] [address] ED Clinical Summary Person Information Name: HARJIT ASENCIO I Patricia[facility] Age: 73 Years : 1950 Sex: Female Language: Bahraini PCP: Peggy Nazario MD Marital Status: Visit Id: Visit Reason: Genitourinary problem; 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 Speciality: Acuity: 3 Enc Type: Observation Med Service: Emergency Arrival: 07/02/2023 21:17:31 Discharge: LOS: 000 05:33 Checkin: 07/02/2023 21:17:31 Checkout: 07/03/2023 02:50:11 Dispo Type: Admitted as IP to this [facility] EVENTS: Event Name Event Status Request Date/Time [...] 07/03/2023 02:36:18 07/03/2023 02:36:18 07/03/2023 02:36:19 ADDRESS: [address] [place] [id number] [facility] DOC NOTES: MEDICAL INFORMATION: Prescriptions Given: [...] RVR; 3:New onset a-fib; 4:Elevated troponin Normal [facility] ED Note-Physicianon 07-03-20 ED Note-Physician Basic Information Time Seen: Layton Crafword M.D. 07/02/2023 21:51 Chief Complaint Pt presents [...] and Complexity of Problems Differential Diagnosis: [] [facility] Data External documents reviewed: [] My EKG [...] 0.9% intrave (more content not included)... Normal [facility] Comment on above: Result Comment: Elec tronically Signed By: Layton Crawford M.D.\.zak\Date and Time Signed: 07/03/23 08:17 EST ED Patient Education Noteon 07-03-2023 ED Patient Education Note Normal [facility] ED Patient Summaryon 023 ED Patient Summary [address] [address] Patient Discharge Instructions Person Information Name: HARJIT ASECNIO I Age: 73 Years Arrival Date: 07/02/2023 21:17:31 Discharge Diagnosis: 1:Urinary hesitancy; 2:Atrial fibrillation with RVR; 3:New onset a-fib; 4:Elevated troponin Primary Care Physician: Peggy Nazario MD Provider Information Primary Provider: Yvette Vasquez, Layton Cazares Advanced Bar Roller:None The exam and treatment you received in the Emergency Department were for an urgent problem and are not intended as complete care. It is important that you follow up with a doctor, nurse practitioner, or physician?s emergency medicine physician assistant for ongoing care. If your symptoms become worse or you do not improve as expected and you are unable to reach your usual health care provider, you should return to the Emergency Department. We are available 24 hours a day. HARJIT ASENCIO I has been given the following [...] opioids can be used to help relieve tfhbgmxo-gb-thmtdt pain and are often prescribed following a [...] be struggling with addiction, tell your health direct care worker and ask for guidance or call [facility]?S National Helpline at 4-917-275-MSTI. v Source: [place] Department of Health and Human Services/Center for Disease Control & Prevention [facility] (more content not included)... Normal [facility] Hep Func Panelon 07-03-2023 Albumin [Mass/Vol] 3.8 g/dL Normal 3.3-5.0 [facility] Comment on above: Performed By: #### 1 7424199, 9590501, 3227023, 1649748, 8771157, 63811199, 3245341 ####[facility] [place] [address] Albumin/Globulin (S) [Mass conc ratio] 1.3 Normal 1.1-2.2 [facility] Comment on above: Performed By: #### 1 9703924, 0588811, 0409736, 1782878, 4900481, 35304157, 0967895 ####[facility] [address] [place] [address] ALP [Catalytic activity/Vol] 58 Int._Unit/L Normal 21-98 [facility] Comment on above: Performed By: #### 1 9791335, 8778102, 3303007, 0103618, 4811142, 11507893, 5792754 ####[facility] [address] [place] [address] ALT No additional P-5'-P [Catalytic activity/Vol] 66 Int._Unit/L High 6-46 [facility] Comment on above: Performed By: #### 1 8957729, 5314939, 0006028, 0168884, 2157804, 96987750, 3292492 ####[address] [place] [address] AST [Catalytic activity/Vol] 81 Int._Unit/L High 5-43 [facility] Comment on above: Performed By: #### 1 5634290, 0021882, 5158376, 9915175, 3406098, 30918211, 5947066 ####[facility] [address] [place] [address] Bilirubin [Mass/Vol] 0.5 mg/dL Normal 0.0-1.1 [facility] Comment on above: Performed By: #### 1 0738641, 9168506, 8626400, 3717702, 3375446, 35970776, 5817623 ####[address] [place] [address] Bilirubin.direct [Mass/Vol] 0.1 mg/dL Normal 0.1-0.4 [facility] Comment on above: Performed By: #### 1 1369507, 4746363, 7448019, 7729755, 6490058, 53066123, 0411417 ####[facility] [address] [place] [address] Bilirubin.indirect [Mass or moles/Vol] 0.4 mg/dL Normal 0.1-0.9 [facility] Comment on above: Performed By: #### 1 8104968, 6117317, 6694285, 8813777, 4332071, 31285750, 9339665 ####[facility] [address] [place] [address] Globulin (S) [Mass/Vol] 2.9 g/dL Normal 1.4-4.0 [facility] Comment on above: Performed By: #### 1 8505159, 0492312, 8886138, 3656775, 0147505, 74018870, 9391404 ####[facility] [address] [place] [address] Protein [Mass/Vol] 6.7 g/dL Normal 6.0-7.8 [facility] Comment on above: Performed By: #### 1 0103953, 6890253, 9929286, 6132688, 2026544, 36685092, 6552297 ####[facility] [address] [place] [address] UtxA5uab 07-03-2023 HbA1c (Bld) [Mass fraction] 5.5 % Normal <=5.9 [facility] Comment on above: Performed By: #### 2 983692, 82957186, 0408907, 3736356, 2488535, 8450849 #### [facility] [address] [place] [address] Interdisciplinary Note - Tico e Manageron 07-03-2023 Interdisciplinary Note - Paint Booth Operator CRM to room to discuss DC planning. [...] needs for HH, PM or DME at [place]. Patient was provided CRM contact, cortez board updated. Anticipated DC TBD. CRM following Normal [facility] Comment on above: Result Comment: Elec tronically Signed By: Brigitte Nazario\.br\Date and Time Signed: 07/03/23 13:05 EST Lipid Panelon 07-03-2023 Cholesterol [Mass/Vol] 145 mg/dL Normal 120-200 [facility] Comment on above: Performed By: #### 2 055894, 96722015, 7981577, 2081920, 8470142, 4263315 #### [facility] [address] [place] [address] Cholesterol in HDL [Mass/Vol] 43 mg/dL Invalid Interpretation Code [facility] Comment on above: Result Comment: HDL > or equal to 60 mg/dL: Low cardiovascular risk HDL < 40 mg/dL : High cardiovascular risk Performed By: #### 2 187589, 31030421, 1071701, 4751387, 9217492, 3191351 #### [facility] [address] [place] [address] Cholesterol in LDL [Mass/Vol] 99 mg/dL Normal <=129 [facility] Comment on above: Performed By: #### 2 267350, 27255661, 8054619, 9352283, 8640590, 4758988 #### [facility] [address] [place] [address] Cholesterol in VLDL [Mass/Vol] 17 mg/dL Normal 7-40 [facility] Comment on above: Performed By: #### 2 631795, 83945882, 6164081, 1863379, 2515148, 5013560 #### [facility] [address] [place] [address] Triglyceride [Mass/Vol] 85 mg/dL Normal <=149 [facility] Comment on above: Performed By: #### 2 724791, 78316438, 9278662, 2324055, 5450414, 2925967 #### [facility] [address] [place] [address] Magnesiumon 07-03-2023 Magnesium [Mass/Vol] 2.0 mg/dL Normal 1.3-2.4 [facility] Comment on above: Performed By: #### 1 4039628, 0597613, 4834832, 5992806, 2903759, 32791010, 6802025 ####[facility] [address] [place] [address] Message from Medicareon 06-15 Message from Medicare [id number]# 1.00TIFF Normal [facility] Monitor Recordon 07-03-2023 Monitor Record [id number]# 1.00TIFF Normal [facility] Monitor Record [id number]# 1.00TIFF Normal [facility] Monitor Record [id number]# 1.00TIFF Normal [facility] Progress Note-Physicianon Progress Note-Physician Assessment/Plan 73-year-old [...] Complete Sbsq Hospital Care/Day Moderate 35 Minutes 52314 2. Elevated troponin (R79.89: Other specified abnormal findings of blood chemistry) Secondary to type II non-ST segment elevation myocardial infarction from above. Echocardiogram ordered. Cardiology consult pending. Continue on aspirin. Ordered: Echo Transthoracic Complete S[facility]q Hospital Care/Day Moderate 35 Minutes 41265 3. Urinary hesitancy (R39.11: Hesitancy of micturition) Secondary to urethral stricture. Patient is status post Robles catheter placement for urinary retention. She will follow-up with urologist as outpatient. Ordered: [facility] Care/Day Moderate 35 Minutes 00388 4. Constipation (K59.00: Constipation, unspecified) Started patient on MiraLAX and lactulose. Ordered: lactulose, 20 gram = 30 mL, Syrup, Oral, Once, Stop date 07/03/23 12:00:00 EST, Routine, Start date 07/03/23 12:00:00 EST, 07/03/23 12:00:00 EST polyethylene glycol 3350, 17 gram = 1 EA, Powder-Recon, Oral, Daily, Routine, Start date 07/03/23 12:00:00 EST, 07/03/23 12:00:00 EST [facility] Care/Day Moderate 35 Minutes 03089 5. Other urethral stricture, female (N35.82: Other [...] made to ensure accuracy. However inadvertent computerized cable mock up assembler errors may be present. Nahid Serrato. Hospitalist. [...] 22:10:00) Lymph Auto: 15.3 % (07/02/23 22:10:00) Ramsey Auto: 7.7 % (07/02/23 22:10:00) Eos Auto: 0 % (07/02/23 22:10:00) Baso (more content not included)... Normal [facility] Comment on above: Result Comment: Elec tronically Signed By: JAZMÍN MCMAHON, Nahid\.br\Date and Time Signed: 07/03/23 10:57 EST TSH With T4fr Reflexon 07-03 TSH Qn 3.83 m[IU]/L Normal 0.34-5.60 [facility] Comment on above: Performed By: #### 2 657976, 82823063, 6329905, 5753146, 3643199, 9155240 #### [facility] [address] [place] [address] Troponinon 07-03-2023 Troponin I.cardiac [Mass/Vol] 27.10 pg/mL Normal 10.10-27.10 [facility] Comment on above: Result Comment: The 95% CI (Confidence Interval) PPV (Positive Predictive Value) for myocardial infarction in females is 38 pg/mL, in males 51 pg/mL. The results should be used in conjunction with clinical conditions of myocardial infarction. (Access High Sensitivity Troponin I Instructions For Use, [employer], March 2018) Performed By: #### 2 245185, 70647556, 0327511, 3084554, 9349274, 1778939 #### [facility] [address] [place] [address] Troponin 0 Hr.on 07-03-2023 Troponin I.cardiac [Mass/Vol] 27.30 pg/mL High 10.10-27.10 [facility] Comment on above: Result Comment: The 95% CI (Confidence Interval) PPV (Positive Predictive Value) for myocardial infarction in females is 38 pg/mL, in males 51 pg/mL. The results should be used in conjunction with clinical conditions of myocardial infarction. (Access High Sensitivity Troponin I Instructions For Use, [employer], March 2018) Performed By: #### 1 0833692, 0471531, 4855872, 2088783, 8121365, 85363417, 5293786 ####[facility] [address] [place] [address] Troponin 3 Hr.Ordered By: [employer] on 07-03-2023 Troponin I.cardiac [Mass/Vol] 27.70 pg/mL High 10.10-27.10 [facility] [place] [facility] Comment on above: Interpretive Data: T he 95% CI (Confidence Interval) PPV (Positive Predictive Value) for myocardial infarction in females is 38 pg/mL, in males 51 pg/mL. The results should be used in conjunction with clinical conditions of myocardial infarction. (Ma[employer]o High Sensitivity Troponin I Instructions For Use, [employer], March 2018) Result Comment: The 95% CI (Confidence Interval) PPV (Positive Predictive Value) for myocardial infarction in females is 38 pg/mL, in males 51 pg/mL. The results should be used in conjunction with clinical conditions of myocardial infarction. ([employer] High Sensitivity Troponin I Instructions For Use, [employer], March 2018) Performed By: #### 2 426852, 58424906, 8318122, 3186342, 4580910, 4704074 #### [facility] [address] [place] [address] XR Chest Single Viewon 07-03 XR Chest [...] mGy = na DAP = na Normal [facility] Auto Diffon 07-02-2023 Basophils/100 WBC (Bld) 0.3 % Normal 0.0-2.0 [facility] Comment on above: Order Comment: Order Added by Discern Expert. Performed By: #### 1 9631162, 1235882, 0669608, 3185358, 6274236, 45149885, 1669374 ####[address] [place] [address] Basophils/Leukocytes Auto (Bld) [Pure # fraction] 0.0 E9/L Normal 0.0-0.2 [facility] Comment on above: Order Comment: Order Added by Discern Expert. Performed By: #### 1 5329014, 2081196, 0626244, 5081506, 4219616, 02343055, 5617826 ####[address] [place] [address] Eosinophils/100 WBC (Bld) 0.0 % Normal 0.0-8.0 [facility] Comment on above: Order Comment: Order Added by Discern Expert. Performed By: #### 1 3729498, 9118955, 5622466, 3714479, 7208237, 35216309, 9372065 ####[address] [address] Eosinophils/Leukocyte s Auto (Bld) [Pure # fraction] 0.0 E9/L Normal 0.0-0.5 [facility] Comment on above: Order Comment: Order Added by Discern Expert. Performed By: #### 1 3939885, 6429967, 2915277, 9611310, 7581096, 08899734, 8762150 ####[address] [address] Lymphocytes/100 WBC (Bld) 15.3 % Normal 14.0-50.0 [facility] Comment on above: Order Comment: Order Added by Discern Expert. Performed By: #### 1 2255467, 1180526, 2442041, 2683954, 9926114, 36621990, 5688353 ####[address] [place] [address] Lymphocytes/Leukocyte s Auto (Bld) [Pure # fraction] 0.9 E9/L Low 1.0-4.0 [facility] Comment on above: Order Comment: Order Added by Discern Expert. Performed By: #### 1 2462692, 8512463, 2383436, 7396246, 5561820, 34150481, 9329904 ####[facility] [address] [place] [address] Monocytes/100 WBC (Bld) 7.7 % Normal 4.0-14.0 [facility] Comment on above: Order Comment: Order Added by Discern Expert. Performed By: #### 1 3082098, 1845224, 6045765, 3656619, 8307563, 03551638, 7294438 ####[address] [place] [address] Monocytes/Leukocytes Auto (Bld) [Pure # fraction] 0.5 E9/L Normal 0.2-1.0 [facility] Comment on above: Order Comment: Order Added by Discern Expert. Performed By: #### 1 5640661, 4421034, 9674659, 6328329, 0119606, 76981934, 0638090 ####[address] [place] [address] Neutrophils/100 WBC (Bld) 76.7 % High 36.0-75.0 [facility] Comment on above: Order Comment: Order Added by Discern Expert. Performed By: #### 1 4525604, 3810528, 6021127, 6346965, 7074870, 89361774, 1572907 ####[address] [place] [address] Neutrophils/Leukocyte s Auto (Bld) [Pure # fraction] 4.7 E9/L Normal 2.0-7.5 [facility] Comment on above: Order Comment: Order Added by Discern Expert. Performed By: #### 1 9372507, 0132908, 5329420, 9908626, 9786391, 51975010, 6378232 ####[address] [place] [address] BMPon 07-02-2023 Creatinine [Mass/Vol] 1.0 mg/dL Normal 0.5-1.3 [facility] Comment on above: Performed By: #### 1 5527890, 3521066, 2069163, 5442667, 4934724, 67010392, 4020883 ####[facility] [address] [place] [address] Urea nitrogen [Mass/Vol] 13 mg/dL Normal 5-21 [facility] Comment on above: Performed By: #### 1 0006546, 2882138, 3889298, 4903773, 9229481, 32876883, 6341391 ####[facility] [address] [place] [address] Urea nitrogen/Creatinine [Mass ratio] 13 No Units Normal 10-20 [facility] Comment on above: Performed By: #### 1 5239319, 4158463, 0011588, 0779734, 7540327, 89425782, 8921926 ####[facility] [address] [place] [address] Anion gap [Moles/Vol] 13 mmol/L Normal 6-16 [facility] Comment on above: Performed By: #### 1 6156834, 2931043, 7979457, 2176485, 2238885, 97021663, 0189338 ####[facility] [address] [place] [address] Calcium [Mass/Vol] 9.1 mg/dL Normal 8.9-11.1 [facility] Comment on above: Performed By: #### 1 8728636, 7349166, 5262014, 1910015, 3893583, 28173302, 2954211 ####[facility] [address] [place] [address] Chloride [Moles/Vol] 100 mmol/L Low 101-111 [facility] Comment on above: Performed By: #### 1 4086112, 3905392, 0985888, 7273232, 0512686, 79151581, 9045593 ####[facility] [address] [place] [address] CO2 [Moles/Vol] 24 mmol/L Normal 21-31 [facility] Comment on above: Performed By: #### 1 3416405, 7029543, 8283493, 9501016, 2062954, 82439114, 5928510 ####[facility] [address] [place] [address] Glucose [Mass/Vol] 129 mg/dL Normal 55-199 [facility] Comment on above: Result Comment: If t his glucose result represents a fasting glucose, interpretation should refer to the following reference range: 55-99 mg/dL Performed By: #### 1 8467426, 5592007, 1653105, 3632248, 8921147, 96010480, 2092131 ####[facility] [address] [place] [address] Potassium [Moles/Vol] 3.8 mmol/L Normal 3.5-5.3 [facility] Comment on above: Performed By: #### 1 2459651, 7313879, 1708649, 4506966, 0865019, 78346126, 5260469 ####[facility] [address] [place] [address] Sodium [Moles/Vol] 133 mmol/L Low 135-145 [facility] Comment on above: Performed By: #### 1 4043021, 0390383, 9664554, 6055873, 9920524, 30333313, 0387311 ####[facility] [address] [place] [address] CBC w/ Auto Diffon 3 Erythrocyte distribution width (RBC) [Ratio] 13.5 % Normal 10.9-14.2 [facility] Comment on above: Performed By: #### 1 6074428, 4590584, 0092385, 6606679, 8951175, 56241409, 5948606 #### [facility] [address] [place] [address] Hematocrit (Bld) [Volume fraction] 38.5 % Normal 34.0-46.0 [facility] Comment on above: Performed By: #### 1 3423430, 7084403, 5758121, 4928807, 9325335, 37266142, 0338153 #### [facility] [address] [place] [address] Hemoglobin (Bld) [Mass/Vol] 12.7 g/dL Normal 12.0-16.0 [facility] Comment on above: Performed By: #### 1 9860582, 5746102, 5428218, 1575515, 8753335, 11061286, 3347606 #### [facility] [address] [place] [address] MCH (RBC) [Entitic mass] 29.7 pg Normal 27.0-34.0 [facility] Comment on above: Performed By: #### 1 3043742, 0539387, 0564508, 0574679, 9469198, 54758839, 1891613 #### [facility] [address] [place] [address] MCHC (RBC) [Mass/Vol] 32.9 g/dL Normal 31.4-36.0 [facility] Comment on above: Performed By: #### 1 2159031, 4778479, 3467738, 2200057, 7971025, 11774079, 0713397 #### [facility] [address] [place] [address]24 MCV (RBC) [Entitic vol] 90.3 fL Normal 80.0-100.0 [facility] Comment on above: Performed By: #### 1 0822917, 6679823, 3969669, 8160716, 4557803, 59378640, 7102004 #### [facility] [address] [place] [address] Platelet mean volume (Bld) [Entitic vol] 9.1 fL Normal 6.4-10.8 [facility] Comment on above: Performed By: #### 1 0037406, 9910826, 5422677, 2925162, 3458791, 19393319, 3456054 #### [facility] [address] [place] [address] 61060 Platelets (Bld) [#/Vol] 183.0 E9/L Normal 150.0-500.0 [facility] Comment on above: Performed By: #### 1 9174397, 0876117, 5284637, 4547806, 2354565, 33707335, 0724600 #### [facility] [address] [place] [address] RBC (Bld) [#/Vol] 4.3 E12/L Normal 4.3-5.9 [facility] Comment on above: Performed By: #### 1 1082001, 1948447, 4824765, 7435925, 3861685, 82402002, 4069178 #### [facility] [address] [place] [address] WBC corrected for nucl RBC Auto (Bld) [#/Vol] 6.2 E9/L Normal 4.0-11.0 [facility] Comment on above: Performed By: #### 1 5133965, 2255555, 3428652, 5582670, 8381207, 25827088, 1819943 #### [facility] [address] [place] [address] CHEMISTRYOrdered By: SYSTEM SYSTEM on 07-02-2023 Albumin [...] 59 mL/min/1.73 m2 Normal >=59mL/min/1 .73 m2 [facility] [place] S Comment on [...] 13 mg/dL Normal 5 - 21 mg/dL [facility] [place] Remisol Urea nitrogen/Creatinine [Mass ratio] 13 mg/mg Normal 10 - 20 [facility] [place] Remisol COAGULATIONOrdered By: Lan Eastman on 07-02-2023 aPTT Coag (PPP) [Time] 30.2 s Normal 25.1 - 36.5 second(s) [facility] [place] Comment on above: Interpretive Data: P chandlermeter 15 days - 4 weeks 1 - [...] the same coagulation reagent and instrumentation as [facility] [place]. Currently there are no coagulation studies available worldwide for children to 14 days, and no normal ranges. Heparin therapeutic range (represented by Anti-Factor Xa activity of 0.2 - 0.4 U/mL) corresponds to PTT of 56.6 - 109.0 sec. INR Coag (PPP) [Relative time] 1.2 {INR} Invalid Interpretation Code [facility] [place] [facility] Comment on above: Interpretive Data: I NR results are specifically intended to assess patients stabilized on long-term Anticoagulation therapy suggested INR s Less Intensive Anticoagulation 2.0 3.0 Conventional Range 3.0 4.5 PT Coag (PPP) [Time] 13.2 s High 9.4 - 1 2.5 second(s) [facility] [place] Coag Comment on [...] the same coagulation reagent and instrumentation as [facility] [place] Currently there are no coagulation studies available worldwide for children to 14 days, and no normal ranges. Consent for Treatmenton 06-14 Consent for Treatment [id number] [facility] HEMATOLOGYOrdered By: SYSTEM SYSTEM on 07-02-2023 [...] Coag (PPP) [Time] 30.2 second(s) Normal 25.1-36.5 [facility] Comment on above: Result Comment: Para [...] the same coagulation reagent and instrumentation as [facility] [place] Currently there are no coagulation studies available worldwide for children to 14 days, and no normal ranges. Heparin therapeutic range (represented by Anti-Factor Xa activity of 0.2 - 0.4 U/mL) corresponds to PTT of 56.6 - 109.0 sec. Performed By: #### 2 479688, 80677739, 3803672, 7196450, 4367992, 7181002 #### [facility] [address] [place] [address] INR Coag (PPP) [Relative time] 1.2 {INR} Invalid Interpretation Code [facility] Comment on above: Result Comment: INR results are specifically intended to assess patients stabilized on long-term Anticoagulation therapy suggested INR?s ?Less Intensive Anticoagulation? 2.0 ? 3.0 Conventional Range 3.0 ? 4.5 Performed By: #### 2 448043, 05709962, 1116554, 3477004, 1383323, 9359166 #### [facility] [address] [place] [address] PT Coag (PPP) [Time] 13.2 second(s) High 9.4-12.5 [facility] Comment on above: Result Comment: 15 [...] the same coagulation reagent and instrumentation as [facility] [place] Currently there are no coagulation studies available worldwide for children to 14 days, and no normal ranges. Performed By: #### 2 571307, 68355631, 4142248, 9974070, 1341182, 8404336 #### [facility] [address] [place] [address] UA With Cult Reflexon 2022 Bacteria LM Ql (Urine sed) TRACE Normal Trace [facility] Comment on above: Order Comment: Urina ry Catheter Insertion triggered Urinalysis With Culture Reflex order by discern. Performed By: #### 2 098996, 81175402, 1439557, 8647988, 3362810, 2328381 #### [facility] [address] [place] [address] Bilirubin Ql (U) Negative Normal Negative [facility] Comment on above: Order Comment: Urina ry Catheter Insertion triggered Urinalysis With Culture Reflex order by discern. Performed By: #### 2 566268, 23618862, 6719836, 4703123, 0784315, 8009540 #### [facility] [address] [place] [address] Clarity (U) CLEAR Normal Clear [facility] Comment on above: Order Comment: Urina ry Catheter Insertion triggered Urinalysis With Culture Reflex order by discern. Performed By: #### 2 203046, 73369249, 2376905, 8329233, 9371563, 5793817 #### [facility] [address] [place] [address] Color (U) YELLOW Normal Yellow [facility] Comment on above: Order Comment: Urina ry Catheter Insertion triggered Urinalysis With Culture Reflex order by discern. Performed By: #### 2 251198, 54493936, 9464306, 1670432, 9489240, 0133210 #### [facility] [address] [place] [address] Epithelial cells.squamous LM.HPF (Urine sed) [#/Area] 9-10 Normal 0-2 [facility] Comment on above: Order Comment: Urina ry Catheter Insertion triggered Urinalysis With Culture Reflex order by discern. Performed By: #### 2 577714, 96504861, 2010861, 3749246, 6773456, 0367447 #### [facility] [address] [place] [address] Glucose Test strip (U) [Mass/Vol] Negative Normal Negative [facility] Comment on above: Order Comment: Urina ry Catheter Insertion triggered Urinalysis With Culture Reflex order by discern. Performed By: #### 2 528025, 29112490, 6590703, 2770966, 5179937, 7047692 #### [facility] [address] [place] [address] Hemoglobin Ql (U) TRACE Abnormal Negative [facility] Comment on above: Order Comment: Urina ry Catheter Insertion triggered Urinalysis With Culture Reflex order by discern. Performed By: #### 2 842756, 71875179, 5788239, 2414246, 5066472, 0442090 #### [facility] [address] [place] [address] Ketones (U) [Mass/Vol] TRACE Invalid Interpretation Code Negative [facility] Comment on above: Order Comment: Urina ry Catheter Insertion triggered Urinalysis With Culture Reflex order by discern. Performed By: #### 2 747151, 59323263, 7715629, 9995124, 1226783, 6584139 #### [facility] [address] [place] [address] [place].plasma/Lithiu m.RBC (Bld) [Mass ratio] 0-3 Normal 0-3 [facility] Comment on above: Order Comment: Urina ry Catheter Insertion triggered Urinalysis With Culture Reflex order by discern. Performed By: #### 2 512444, 87996105, 1586586, 9749220, 0667921, 4494855 #### [facility] [address] [place] [address] Mucus Ql (Urine sed) TRACE Normal [facility] Comment on above: Order Comment: Urina ry Catheter Insertion triggered Urinalysis With Culture Reflex order by discern. Performed By: #### 2 311027, 72421820, 0773842, 3144807, 0126760, 7759565 #### [facility] [address] [place] [address] Nitrite Ql (U) Negative Normal Negative [facility] Comment on above: Order Comment: Urina ry Catheter Insertion triggered Urinalysis With Culture Reflex order by discern. Performed By: #### 2 625799, 44341149, 0035482, 7377759, 4299045, 9110323 #### [facility] [address] [place] [address] pH (U) 5.5 [pH] Invalid Interpretation Code 5.0-9.0 [facility] Comment on above: Order Comment: Urina ry Catheter Insertion triggered Urinalysis With Culture Reflex order by discern. Performed By: #### 2 390655, 31253413, 6142997, 5601093, 4088563, 4878237 #### [facility] [address] [place] [address] Protein (U) [Mass/Vol] Negative Normal Negative [facility] Comment on above: Order Comment: Urina ry Catheter Insertion triggered Urinalysis With Culture Reflex order by discern. Performed By: #### 2 544230, 70952161, 8319154, 3477771, 4689102, 2200921 #### [facility] [address] [place] [address] Specific gravity (U) [Rel density] 1.025 Invalid Interpretation Code 1.005-1.030 [facility] Comment on above: Order Comment: Urina ry Catheter Insertion triggered Urinalysis With Culture Reflex order by discern. Performed By: #### 2 464941, 56187006, 7994129, 9124859, 1332088, 0158211 #### [facility] [address] [place] [address] Type of Urine collection method Robles Normal [facility] Comment on above: Order Comment: Urina ry Catheter Insertion triggered Urinalysis With Culture Reflex order by discern. Performed By: #### 2 186424, 46536032, 9386487, 7766440, 2793137, 8273727 #### [facility] [address] [place] [address] Urobilinogen Qn (U) 0.2 {Judith'U}/dL Normal 0.0-1.0 [facility] Comment on above: Order Comment: Urina ry Catheter Insertion triggered Urinalysis With Culture Reflex order by discern. Performed By: #### 2 675637, 40138585, 5788261, 4616321, 8377953, 8727085 #### [facility] [address] [place] [address] WBC Auto Ql (U) Negative Normal Negative [facility] Comment on above: Order Comment: Urina ry Catheter Insertion triggered Urinalysis With Culture Reflex order by discern. Performed By: #### 2 227517, 48590243, 7765825, 7254247, 8406830, 4101966 #### [facility] [address] [place] [address] WBC LM.HPF (Urine sed) [#/Area] 0-5 Normal 0-5 [facility] Comment on above: Order Comment: Urina ry Catheter Insertion triggered Urinalysis With Culture Reflex order by discern. Performed By: #### 2 446489, 68495718, 3785344, 8208455, 6127435, 4263997 #### [facility] [address] [place] [address] URINALYSISOrdered By: Lan Eastman on 07-02-2023 Bacteria [...] Interpretation Code Negative [facility] UA Auto SS [place].plasma/Lithiu m.RBC (Bld) [Mass ratio] 0-3 /HPF Normal [...] [facility] UA Auto SS Urobilinogen Qn (U) 0.2477578 {Judith'U}/dL Normal 0.0 - 1.0 EU/dL [facility] UA Auto SS WBC Auto Ql (U) Negative (07/02/23 10:18 PM) Normal Negative [facility] UA Auto SS WBC LM.HPF (Urine sed) [#/Area] 0-5 /HPF Normal 0-5/HPF [facility] UA Auto SS eGFRon 07-02-2023 GFR/1.73 sq M.predicted among non-blacks MDRD (S/P/Bld) [Vol rate/Area] 59 mL/min/1.73 m2 Normal >=59 [facility] Comment on above: Order Comment: Order added by Discern Expert. Result Comment: Consumer Insight Analyst lius kidney disease could be indicated at eGFR's of less than 60 mL/min/1.73m2. Kidney failure is indicated at less than 15 mL/min/1.73m2. Performed By: #### 1 3408697, 5155042, 2669908, 7109060, 7323099, 04632981, 1151723 ####[facility] [address] [place] [address] CT Abdomen/Pelvis w/o Contra ston 07-01-2023 CT [...] Oral contrast amount in ml's: [address] [facility] Discharge Instructionson Discharge Instructions [id number] [facility] ED Clinical Summaryon 2022 ED Clinical Summary [address] [address] ED Clinical Summary Person Information Name: HARJIT ASENCIO/New_Jose Age: 73 Years : 1950 Sex: Female Language: Bahraini PCP: Peggy Nazario MD Marital Status: Visit [...] 07/01/2023 00:37:46 07/01/2023 00:37:46 07/01/2023 00:37:46 ADDRESS: [address] [place] [address] [address] [facility] [id number] PHYS DOC NOTES: MEDICAL INFORMATION: Prescriptions Given: New Medications [id number], [address] [place], [place] [id number], [phone] dicyclomine (Bentyl 10 mg Cap) 1 Capsules [...] PATIENT EDUCATION INFORMATION: Instructions: Abdominal Pain, Adult, Hfmi-ie-Dfzn Follow up: With: Address: When: Peggy Naz[place] [address] [place] [address] Business (1) In 3 days 07/04/2023 Comments: You can use the Bentyl, Zofran every 6 hours as needed for pain and nausea. Please follow-up with your primary care doctor next 2 to 3 days for further evaluation management. Please return to the ED for any new or worsening symptoms. DIAGNOSIS: Abdominal pain, acute Normal [facility] ED Note-Physicianon 07-01-20 ED Note-Physician Basic [...] and Complexity of Problems Differential Diagnosis: [] [facility] Data External documents reviewed: [] My EKG [...] day(s), # 14 cap(s), Refills(s) 0, Pharmacy: [facility] #[id number], 165, cm, 06/30/23 19:37:00 EST, Height/Length Dosing, [...] q8hr, # 12 tab(s), Refills(s) 0, Pharmacy: [facility] #[id number], 165, cm, 06/30/23 19:37:00 EST, Height/Length Dosing, [...] Information Peggy Nazario In 3 days 07/04/[address] [address]- Business (1) Additional Instructions: You can use the Bentyl, Zofran every 6 hours as needed for pain and nausea. Please follow-up with your primary care doctor next 2 to 3 days for further evaluation management. Please return to the ED for any new or worsening symptoms. Patient Education Abdominal Pain, Adult, Havr-sr-Kowz Problem List/Past Medical History Ongoing acid reflux Acute ga (more content not included)... Normal [facility] Comment on above: Result Comment: Elec tronically Signed By: Koby Masterson DO\.br\Date and Time Signed: 07/01/23 01:03 [facility] ED Patient Education Noteon 07-01-2023 ED [...] these instructions at home: Medicines ? Take tjhp-xcz-drlcsqs and prescription medicines only as told by [...] belly pain for any changes. ? Take gakm-tdx-ufvixno and prescription medicines only as told by [...] provider. Document Revised: 12/09/2019 Document Reviewed: 12/09/2019 [employer] Patient Education ? [address] [employer] [facility] ED Patient Summaryon 023 ED Patient Summary [place] [address] Patient Discharge Instructions Person Information Name: HARJIT ASENCIO I Age: 73 Years Arrival Date: 06/30/2023 18:48:02 Discharge Diagnosis: Abdominal pain, acute Primary Care Physician: Peggy Nazario MD Provider Information Primary Provider: Koby Masterson DO Advanced Bar Roller:None The exam and treatment you received in the Emergency Department were for an urgent problem and are not intended as complete care. It is important that you follow up with a doctor, nurse practitioner, or physician?s emergency medicine physician assistant for ongoing care. If your symptoms become worse or you do not improve as expected and you are unable to reach your usual health care provider, you should return to the Emergency Department. We are available 24 hours a day. HARJIT ASENCIO I has been given the following list of patient education materials, prescriptions and follow-up instructions: Follow-up Instructions: With: Address: When: Peggy Nazario [address] [place] [address] [employer] (1) In 3 days 07/04/2023 Comments: You [...] provider. Patient Education Materials: Abdominal Pain, Adult, Fezs-xz-Jmao A MESSAGE TO ALL PATIENTS REGARDING OPIOIDS PRESCRIPTION OPIOIDS: WHAT YOU NEED TO KNOW Prescription opioids can be used to help relieve xawhjntp-fp-fwgzoj pain and are often prescribed following a [...] ose to robert (more content not included)... Normal [facility] RAD - Preliminary Cat Scan R eporton 07-01-2023 RAD - Preliminary Cat Scan Report [id number] [facility] Auto Diffon 06-30-2023 Basophils/100 WBC (Bld) 0.8 % Normal 0.0-2.0 [facility] Comment on above: Order Comment: Order Added by Discern Expert. Performed By: #### 2 813088, 94009636, 6661194, 6478343, 7094013, 5334457 #### [facility] [address] [place] [address] Basophils/Leukocytes Auto (Bld) [Pure # fraction] 0.0 E9/L Normal 0.0-0.2 [facility] Comment on above: Order Comment: Order Added by Discern Expert. Performed By: #### 2 238399, 23549076, 1109812, 4106175, 5099898, 9567007 #### [facility] [address] [place] [address] Eosinophils/100 WBC (Bld) 0.2 % Normal 0.0-8.0 [facility] Comment on above: Order Comment: Order Added by Discern Expert. Performed By: #### 2 635913, 19909868, 1861152, 0776560, 4629927, 0148861 #### [facility] [address] [place] [address] Eosinophils/Leukocyte s Auto (Bld) [Pure # fraction] 0.0 E9/L Normal 0.0-0.5 [facility] Comment on above: Order Comment: Order Added by Valeria Expert. Performed By: #### 2 236611, 15871847, 2732964, 3742450, 6920848, 4810612 #### [facility] [address] [place] [address] Lymphocytes/100 WBC (Bld) 26.7 % Normal 14.0-50.0 [facility] Comment on above: Order Comment: Order Added by Valeria Expert. Performed By: #### 2 876430, 98044301, 3259712, 4435757, 0609246, 8349424 #### [facility] [address] [place] [address] Lymphocytes/Leukocyte s Auto (Bld) [Pure # fraction] 1.2 E9/L Normal 1.0-4.0 [facility] Comment on above: Order Comment: Order Added by Valeria Expert. Performed By: #### 2 329820, 83100909, 1768677, 6849256, 7727953, 3550216 #### [facility] [address] [place] [address] Monocytes/100 WBC (Bld) 9.8 % Normal 4.0-14.0 [facility] Comment on above: Order Comment: Order Added by Discern Expert. Performed By: #### 2 177858, 69971316, 3767898, 2826225, 2879246, 2475672 #### [facility] [address] [place] [address] Monocytes/Leukocytes Auto (Bld) [Pure # fraction] 0.4 E9/L Normal 0.2-1.0 [facility] Comment on above: Order Comment: Order Added by Discern Expert. Performed By: #### 2 239179, 52818376, 8881167, 4891595, 2954307, 3688511 #### [facility] [address] [place] [address] Neutrophils/100 WBC (Bld) 62.5 % Normal 36.0-75.0 [facility] Comment on above: Order Comment: Order Added by Discern Expert. Performed By: #### 2 410285, 04522450, 2773458, 2620023, 4776315, 1384449 #### [facility] [address] [place] [address] Neutrophils/Leukocyte s Auto (Bld) [Pure # fraction] 2.7 E9/L Normal 2.0-7.5 [facility] Comment on above: Order Comment: Order Added by Discern Expert. Performed By: #### 2 599946, 37984564, 5856060, 1569680, 6063954, 6623210 #### [facility] [address] [place] [address] BMPon 06-30-2023 Creatinine [Mass/Vol] 0.8 mg/dL Normal 0.5-1.3 [facility] Comment on above: Performed By: #### 2 322635, 66024628, 0804896, 3776606, 6503890, 0235589 #### [facility] [address] [place] [address] Urea nitrogen [Mass/Vol] 12 mg/dL Normal 5-21 [facility] Comment on above: Performed By: #### 2 968120, 02858091, 6645159, 4816388, 8205580, 5305217 #### [facility] [address] [place] [address] Urea nitrogen/Creatinine [Mass ratio] 15 No Units Normal 10-20 [facility] Comment on above: Performed By: #### 2 660393, 07657478, 4131332, 7946481, 6783216, 9617748 #### [facility] [address] [place] [address] Anion gap [Moles/Vol] 13 mmol/L Normal 6-16 [facility] Comment on above: Performed By: #### 2 025258, 20404430, 3432909, 1549197, 7526435, 4716191 #### [facility] [address] [place] [address] Calcium [Mass/Vol] 9.5 mg/dL Normal 8.9-11.1 [facility] Comment on above: Performed By: #### 2 411473, 81102771, 3291331, 4254641, 4190814, 7169790 #### [facility] [address] [place] [address] Chloride [Moles/Vol] 103 mmol/L Normal 101-111 [facility] Comment on above: Performed By: #### 2 388829, 68324942, 9289187, 1144222, 1636703, 5592161 #### [facility] [address] [place] [address] CO2 [Moles/Vol] 27 mmol/L Normal 21-31 [facility] Comment on above: Performed By: #### 2 354406, 18666622, 2278341, 9895666, 8795186, 3424358 #### [facility] [address] [place] [address] Glucose [Mass/Vol] 110 mg/dL Normal 55-199 [facility] Comment on above: Result Comment: If t his glucose result represents a fasting glucose, interpretation should refer to the following reference range: 55-99 mg/dL Performed By: #### 2 732066, 07547756, 1142318, 3659112, 5213361, 9788559 #### [facility] [address] [place] [address] Potassium [Moles/Vol] 4.1 mmol/L Normal 3.5-5.3 [facility] Comment on above: Performed By: #### 2 671432, 35630601, 3606173, 0062699, 8796920, 5684756 #### [facility] [address] [place] [address] Sodium [Moles/Vol] 139 mmol/L Normal 135-145 [facility] Comment on above: Performed By: #### 2 503262, 75264890, 8874506, 4662561, 9862344, 2171531 #### [facility] [address] [place] [address] CBC w/ Auto Diffon Erythrocyte distribution width (RBC) [Ratio] 13.7 % Normal 10.9-14.2 [facility] Comment on above: Performed By: #### 2 171053, 76896686, 4550573, 6274612, 1404922, 7463505 #### [facility] [address] [place] [address] Hematocrit (Bld) [Volume fraction] 38.0 % Normal 34.0-46.0 [facility] Comment on above: Performed By: #### 2 308616, 59830853, 8634563, 0488645, 7612604, 7255854 #### [facility] [address] [place] [address]233 Hemoglobin (Bld) [Mass/Vol] 12.5 g/dL Normal 12.0-16.0 [facility] Comment on above: Performed By: #### 2 327884, 47730508, 2282466, 3801795, 4269390, 3045507 #### [facility] [address] [place] [address] MCH (RBC) [Entitic mass] 29.9 pg Normal 27.0-34.0 [facility] Comment on above: Performed By: #### 2 824561, [id number], 7038359, 6027713, 4478146, 7718258 #### [facility] [address] [place] [address] 57228 MCHC (RBC) [Mass/Vol] 32.9 g/dL Normal 31.4-36.0 [facility] Comment on above: Performed By: #### 2 709619, 41463080, 6504957, 2382814, 6915776, 6687939 #### [facility] [address] [place] [address] 47097 MCV (RBC) [Entitic vol] 90.9 fL Normal 80.0-100.0 [facility] Comment on above: Performed By: #### 2 341031, 33191677, 4559997, 4522643, 2426326, 4603238 #### [facility] [address] [place] [address] 76923 Platelet mean volume (Bld) [Entitic vol] 8.7 fL Normal 6.4-10.8 [facility] Comment on above: Performed By: #### 2 785448, 53957390, 3346337, 7036048, 4378792, 6924605 #### [facility] [address] [place] [address] 26372 Platelets (Bld) [#/Vol] 184.0 E9/L Normal 150.0-500.0 [facility] Comment on above: Performed By: #### 2 639976, 87546713, 2163945, 9046446, 7646194, 9242532 #### [facility] [address] [place] [address] 47864 RBC (Bld) [#/Vol] 4.2 E12/L Low 4.3-5.9 [facility] Comment on above: Performed By: #### 2 048577, 72541893, 6898695, 3229848, 5821773, 8352879 #### [facility] [address] [place] [address] 71841 WBC corrected for nucl RBC Auto (Bld) [#/Vol] 4.4 E9/L Normal 4.0-11.0 [facility] Comment on above: Performed By: #### 2 299982, 96206945, 5577992, 3031067, 6049239, 7718039 #### [facility] [address] [place] [address] CHEMISTRYOrdered By: SYSTEM SYSTEM on 06-30-2023 Albumin [...] 77 mL/min/1.73 m2 Normal >=59mL/min/1 .73 m2 [facility] [place] S Comment on [...] ratio] 15 mg/mg Normal 10 - 20 FT Remisol Consent for Treatmenton 06-14 Consent for Treatment [id number]#1 .00TIFF [facility] [place] Consent for Treatment [id number] 311 [id number]#1 .00TIFF [facility] HEMATOLOGYOrdered By: SYSTEM SYSTEM on 06-30-2023 Basophils/100 [...] 4.4 E9/L Normal 4.0 - 11.0 E9/L [facility] [place] HemeAutoSS Hep Func Panelon 06-30-2023 Bilirubin.indirect [Mass or moles/Vol] UTC Abnormal 0.1-0.9 [facility] Comment on above: Result Comment: Resu lt verified by Discern Rule. Performed result UTC (Unable to Calculate) was sent as an Alpha code due the inability to calculate a valid numeric value. Performed By: #### 2 108419, 77732899, 1739733, 2508035, 7137027, 2256074 #### [facility] [address] [place] [address] Albumin [Mass/Vol] 3.8 g/dL Normal 3.3-5.0 [facility] Comment on above: Performed By: #### 2 487457, 72141165, 4387140, 6308675, 6636874, 0731099 #### [facility] [address] [place] [address] Albumin/Globulin (S) [Mass conc ratio] 1.3 Normal 1.1-2.2 [facility] Comment on above: Performed By: #### 2 694659, 00219897, 5565667, 9065806, 8013290, 0888129 #### [facility] [address] [place] [address] ALP [Catalytic activity/Vol] 56 Int._Unit/L Normal 21-98 [facility] Comment on above: Performed By: #### 2 672372, 10484268, 2287755, 1276275, 6936685, 4448098 #### [facility] [address] [place] [address] ALT No additional P-5'-P [Catalytic activity/Vol] 50 Int._Unit/L High 6-46 [facility] Comment on above: Performed By: #### 2 813012, 25815244, 8354508, 2342147, 5178657, 7118971 #### [facility] [address] [place] [address] AST [Catalytic activity/Vol] 45 Int._Unit/L High 5-43 [facility] Comment on above: Performed By: #### 2 806413, 84231873, 1092935, 2374579, 6718153, 6553988 #### [facility] [address] [place] [address] Bilirubin [Mass/Vol] 0.5 mg/dL Normal 0.0-1.1 [facility] Comment on above: Performed By: #### 2 801209, 93569119, 5821035, 9433689, 0796092, 8826853 #### [facility] [address] [place] [address] Globulin (S) [Mass/Vol] 3.0 g/dL Normal 1.4-4.0 [facility] Comment on above: Performed By: #### 2 056599, 74872677, 4771428, 6016007, 0175985, 6423977 #### [facility] [address] [place] [address] Protein [Mass/Vol] 6.8 g/dL Normal 6.0-7.8 [facility] Comment on above: Performed By: #### 2 075312, 28211306, 9799932, 0120465, 1376820, 4107981 #### [facility] [address] [place] [address] Bilirubin.direct [Mass/Vol] mg/dL Normal 0.1-0.4 [facility] Comment on above: Performed By: #### 2 467125, 22762636, 4549685, 1798174, 2154952, 3391627 #### [facility] [address] [place] [address] Lipase Levelon 06-30-2023 Lipase [Catalytic activity/Vol] 31 U/L Normal 13-58 [facility] Comment on above: Performed By: #### 2 949017, 22042332, 7149721, 1597607, 6415331, 7621273 #### [facility] [address] [place] [address] UA With Cult Reflexon 2022 Bacteria LM Ql (Urine sed) TRACE Normal Trace [facility] Comment on above: Performed By: #### 2 269716, 79291347, 7004828, 8763277, 6283815, 1453349 #### [facility] [address] [place] [address] Bilirubin Ql (U) Negative Normal Negative [facility] Comment on above: Performed By: #### 2 451249, 92924836, 3018347, 0050133, 5459311, 1085616 #### [facility] [address] [place] [address] Clarity (U) CLEAR Normal Clear [facility] Comment on above: Performed By: #### 2 823636, 58245065, 2656785, 7294685, 2554327, 1871554 #### [facility] [address] [place] [address] Color (U) YELLOW Normal Yellow [facility] Comment on above: Performed By: #### 2 496320, 01988460, 9991862, 0315408, 7742059, 1654478 #### [facility] [address] [place] [address] Epithelial cells.squamous LM.HPF (Urine sed) [#/Area] 0-2 Normal 0-2 [facility] Comment on above: Performed By: #### 2 005559, 76906522, 9061808, 4533180, 4174278, 6636577 #### [facility] [address] [place] [address] Glucose Test strip (U) [Mass/Vol] Negative Normal Negative [facility] Comment on above: Performed By: #### 2 367240, 10132502, 6066862, 9806325, 3967343, 7225895 #### [facility] [address] [place] [address] Hemoglobin Ql (U) TRACE Abnormal Negative [facility] Comment on above: Performed By: #### 2 176793, 00770548, 7511188, 0511117, 8861512, 2410696 #### [facility] [address] [place] [address] 42739 Ketones (U) [Mass/Vol] Negative Normal Negative [facility] Comment on above: Performed By: #### 2 002123, 27484675, 3426615, 6720848, 0628584, 6808254 #### [facility] [address] [place] [address] 29025 [place].plasma/Lithiu m.RBC (Bld) [Mass ratio] 0-3 Normal 0-3 [facility] Comment on above: Performed By: #### 2 828219, 62109244, 8317890, 1635544, 6911546, 8027399 #### [facility] [address] [place] [address] 11826 Nitrite Ql (U) Negative Normal Negative [facility] Comment on above: Performed By: #### 2 641477, 84637570, 6724105, 6149431, 7472546, 6466753 #### [facility] [address] [place] [address] 67019 pH (U) 6.5 [pH] Invalid Interpretation Code 5.0-9.0 [facility] Comment on above: Performed By: #### 2 345203, 65751964, 6928591, 3910803, 6100997, 4047750 #### [facility] [address] [place] [address] Protein (U) [Mass/Vol] Negative Normal Negative [facility] Comment on above: Performed By: #### 2 329368, 80177709, 7399016, 9839253, 8717423, 0905364 #### [facility] [address] [place] [address] 15546 Specific gravity (U) [Rel density] <=1.005 Invalid Interpretation Code 1.005-1.030 [facility] Comment on above: Performed By: #### 2 277526, 95355248, 0378659, 5791488, 6483479, 4664436 #### [facility] [address] [place] [address] Type of Urine collection method Clean Catch Normal [facility] Comment on above: Performed By: #### 2 940745, 40928303, 7648630, 7270811, 8171928, 0599374 #### [facility] [address] [place] [address] Urobilinogen Qn (U) 0.2 {Judith'U}/dL Normal 0.0-1.0 [facility] Comment on above: Performed By: #### 2 110120, 73672036, 4788206, 9708412, 0997579, 6936476 #### [facility] [address] [place] [address] WBC Auto Ql (U) Negative Normal Negative [facility] Comment on above: Performed By: #### 2 121502, 90990239, 3890721, 0226193, 2251134, 4617928 #### [facility] [address] [place] [address] WBC LM.HPF (Urine sed) [#/Area] 0-5 Normal 0-5 [facility] Comment on above: Performed By: #### 2 743833, 48128126, 7491450, 3612749, 0370357, 8412129 #### [facility] [address] [place] [address] URINALYSISOrdered By: Brian Davis on 06-30-2023 Bacteria [...] PM) Normal Negative [facility] UA Auto SS [place].plasma/Lithiu m.RBC (Bld) [Mass ratio] 0-3 /HPF Normal [...] [facility] UA Auto SS Urobilinogen Qn (U) 0.7369432 {Judith'U}/dL Normal 0.0 - 1.0 EU/dL [facility] UA Auto SS WBC Auto Ql (U) Negative (06/30/23 8:00 PM) Normal Negative [facility] UA Auto SS WBC LM.HPF (Urine sed) [#/Area] 0-5 /HPF Normal 0-5/HPF [facility] UA Auto SS eGFRon 06-30-2023 GFR/1.73 sq M.predicted among non-blacks MDRD (S/P/Bld) [Vol rate/Area] 77 mL/min/1.73 m2 Normal >=59 [facility] Comment on above: Order Comment: Order added by Discern Expert. Result Comment: Consumer Insight Analyst luis kidney disease could be indicated at eGFR's of less than 60 mL/min/1.73m2. Kidney failure is indicated at less than 15 mL/min/1.73m2. Performed By: #### 2 020924, 37589783, 0804208, 8933009, 2473490, 8432067 #### [facility] [address] [place] [address] URINALYSISOrdered By: Lan Eastman on 01-28-2023 Bilirubin [...] PM) Normal Negative [facility] UA Auto SS [place].plasma/Lithiu m.RBC (Bld) [Mass ratio] 0-3 /HPF Normal [...] [facility] UA Auto SS Urobilinogen Qn (U) 1.7463949 {Judith'U}/dL Normal 0.0 - 1.0 EU/dL [facility] UA Auto SS WBC Auto Ql (U) Negative (01/28/23 11:04 PM) Normal Negative [facility] UA Auto SS WBC LM.HPF (Urine sed) [#/Area] 0-5 /HPF Normal 0-5/HPF [facility] [place]A Auto SS Q - SARS CoV2 COVID 19 Ab Ig Clarence 08-20-2021 SARS-CoV-2 (COVID-19) Ab IA Qn 25.84 index High <1.00 [facility] Industrial Tech Instructor Comment on above: Order Comment: [employer] [facility] performed at: Q, [facility], [address], [address] [place], [address], Telecommunications Sales Representative: Ab Vincent MD [facility] Date/Time: [facility] [...] providers and patients using the following websites: [email or web address] Healthcare Providers: For additional information please refer to: http://education.[employer]/faq/WJX690 (This link is being provided for informational/educational purposes only.) This test has been authorized by the FDA under an Emergency Use Authorization (EUA) for use by authorized laboratories. The FDA authorized labeling is available on the [employer] website: www.[employer]/Covid19. Performed By: #### 3 4499 #### [facility] Default [address] [place] [address] Reference Laboratory Testing Ordered By: Advanced Personalized DiagnosticsUser on 08-12-2021 SARS-CoV-2 (COVID-19) RNA JORDAN+probe Ql (Resp) Not detected Invalid Interpretation Code Not Detected [facility] [place] [employer] Comment on above: Result Comment: This nucleic acid amplification test was developed and its performance characteristics determined by [employer]. Nucleic acid amplification tests include RT-PCR and [...] detected) result in this assay. Performed at: [address] [id number] PhD Emily Fraser Vital Signs Date Time Vital Sign Value Performing Clinician Mickieeliseo geno 04-07-2025 13:46-0400 Body height 160 cm Hannah Brian MD Work Phone: [facility] 04-07-2025 13:46-0400 Body mass index (BMI) [Ratio] 23.6 kg/m2 Hannah Brian MD Work Phone: [facility] 04-07-2025 13:46-0400 Body temperature 98.2 [degF] Hannah Brian MD Work Phone: [facility] 04-07-2025 13:46-0400 Body weight 60.42 kg Hannah Brian MD Work Phone: [facility] 04-07-2025 13:46-0400 Diastolic blood pressure 62 mm[Hg] Hannah Brian MD Work Phone: [facility] 04-07-2025 13:46-0400 Heart rate 68 /min Hannah Brian MD Work Phone: [facility] 04-07-2025 13:46-0400 SaO2% (BldA) [Mass fraction] 99 % Hannah Brian MD Work Phone: [facility] 04-07-2025 13:46-0400 Systolic blood pressure 128 mm[Hg] Hannah Brian MD Work Phone: [facility] 01-22-2025 13:56-0400 Body height 160 cm Hannah Brian MD Work Phone: [facility] 01-22-2025 13:56-0400 Body mass index (BMI) [Ratio] 23.91 kg/m2 Hannah Brian MD Work Phone: [facility] 01-22-2025 13:56-0400 Body temperature 98.01 [degF] Hannah Brian MD Work Phone: [facility] 01-22-2025 13:56-0400 Body weight 61.24 kg Hannah Brian MD Work Phone: [facility] 01-22-2025 13:56-0400 Diastolic blood pressure 60 mm[Hg] Hannah Brian MD Work Phone: [facility] 01-22-2025 13:56-0400 Heart rate 70 /min Hannah Brian MD Work Phone: [facility] 01-22-2025 13:56-0400 SaO2% (BldA) [Mass fraction] 99 % Hannah Brian MD Work Phone: [facility] 01-22-2025 13:56-0400 Systolic blood pressure 138 mm[Hg] Hannah Brian MD Work Phone: [facility] 01-07-2025 15:47-0400 Body height 160 cm Hannah Brian MD Work Phone: [facility] 01-07-2025 15:47-0400 Body mass index (BMI) [Ratio] 23.95 kg/m2 Hannah Brian MD Work Phone: [facility] 01-07-2025 15:47-0400 Body temperature 97.9 [degF] Hannah Brian MD Work Phone: [facility] 01-07-2025 15:47-0400 Body weight 61.33 kg Hannah Brian MD Work Phone: [facility] 01-07-2025 15:47-0400 Diastolic blood pressure 70 mm[Hg] Hannah Brian MD Work Phone: [facility] 01-07-2025 15:47-0400 Heart rate 70 /min Hannah Brian MD Work Phone: [facility] 01-07-2025 15:47-0400 SaO2% (BldA) [Mass fraction] 97 % Hannah Brian MD Work Phone: [facility] 01-07-2025 15:47-0400 Systolic blood pressure 120 mm[Hg] Hannah Brian MD Work Phone: [facility] 12-17-2024 15:23-0400 Body height 160 cm Hannah Brian MD Work Phone: [facility] 12-17-2024 15:23-0400 Body mass index (BMI) [Ratio] 24.09 kg/m2 Hannah Brian MD Work Phone: [facility] 12-17-2024 15:23-0400 Body temperature 97.5 [degF] Hannah Brian MD Work Phone: [facility] 12-17-2024 15:23-0400 Body weight 61.69 kg Hannah Brian MD Work Phone: [facility] 12-17-2024 15:23-0400 Diastolic blood pressure 80 mm[Hg] Hannah Brian MD Work Phone: [facility] 12-17-2024 15:23-0400 Heart rate 74 /min Hannah Brian MD Work Phone: [facility] 12-17-2024 15:23-0400 SaO2% (BldA) [Mass fraction] 99 % Hannah Brian MD Work Phone: [facility] 12-17-2024 15:23-0400 Systolic blood pressure 128 mm[Hg] Hannah Brian MD Work Phone: [facility] 11-25-2024 11:32-0400 Body height 160 cm Hannah Brian MD Work Phone: [facility] 11-25-2024 11:32-0400 Body mass index (BMI) [Ratio] 24.45 kg/m2 Hannah Brian MD Work Phone: [facility] 11-25-2024 11:32-0400 Body temperature 97.81 [degF] Hannah Brian MD Work Phone: [facility] 11-25-2024 11:32-0400 Body weight 62.6 kg Hannah Brian MD Work Phone: [facility] 11-25-2024 11:32-0400 Diastolic blood pressure 60 mm[Hg] Hannah Brian MD Work Phone: [facility] 11-25-2024 11:32-0400 Heart rate 75 /min Hannah Brian MD Work Phone: [facility] 11-25-2024 11:32-0400 SaO2% (BldA) [Mass fraction] 96 % Hannah Brian MD Work Phone: [facility] 11-25-2024 11:32-0400 Systolic blood pressure 124 mm[Hg] Hannah Brian MD Work Phone: [facility] 11-18-2024 11:43-0400 Body height 160 cm Hannah Brian MD Work Phone: [facility] 11-18-2024 11:43-0400 Body mass index (BMI) [Ratio] 23.91 kg/m2 Hannah Brian MD Work Phone: [facility] 11-18-2024 11:43-0400 Body temperature 97.81 [degF] Hannah Brian MD Work Phone: [facility] 11-18-2024 11:43-0400 Body weight 61.24 kg Hannah Brian MD Work Phone: [facility] 11-18-2024 11:43-0400 Diastolic blood pressure 60 mm[Hg] Hannah Brian MD Work Phone: [facility] 11-18-2024 11:43-0400 Heart rate 70 /min Hannah Brian MD Work Phone: [facility] 11-18-2024 11:43-0400 SaO2% (BldA) [Mass fraction] 98 % Hannah Brian MD Work Phone: [facility] 11-18-2024 11:43-0400 Systolic blood pressure 120 mm[Hg] Hannah Brian MD Work Phone: [facility] 10-08-2024 12:58-0500 Body height 160 cm Sherlyn Shine PA Work Phone: [facility] 10-08-2024 12:58-0500 Body mass index (BMI) [Ratio] 23.91 kg/m2 Sherlyn Shine PA Work Phone: [facility] 10-08-2024 12:58-0500 Body temperature 97.9 [degF] Sherlyn Shine PA Work Phone: [facility] 10-08-2024 12:58-0500 Body weight 61.24 kg Sherlyn Shine PA Work Phone: [facility] 10-08-2024 12:58-0500 Diastolic blood pressure 70 mm[Hg] Sherlyn Shine PA Work Phone: [facility] 10-08-2024 12:58-0500 Heart rate 70 /min Sherlyn Shine PA Work Phone: [facility] 10-08-2024 12:58-0500 SaO2% (BldA) [Mass fraction] 97 % Sherlyn Shine PA Work Phone: [facility] 10-08-2024 12:58-0500 Systolic blood pressure 120 mm[Hg] Sherlyn Shine PA Work Phone: [facility] 08-12-2024 16:09-0500 Body height 161.3 cm Rickie Aviles STRUCTURAL IRONWORKER Work Phone: [facility] 08-12-2024 16:09-0500 Body mass index (BMI) [Ratio] 22.39 kg/m2 Rickie Aviles STRUCTURAL IRONWORKER Work Phone: [facility] 08-12-2024 16:09-0500 Body temperature 97.7 [degF] Rickie Aviles STRUCTURAL IRONWORKER Work Phone: [facility] 08-12-2024 16:09-0500 Body weight 58.24 kg Rickie Kumariller STRUCTURAL IRONWORKER Work Phone: [facility] 08-12-2024 16:09-0500 Diastolic blood pressure 70 mm[Hg] Rickie Kumariller STRUCTURAL IRONWORKER Work Phone: [facility] 08-12-2024 16:09-0500 Heart rate 73 /min Rickie Kumariller STRUCTURAL IRONWORKER Work Phone: [facility] 08-12-2024 16:09-0500 SaO2% (BldA) [Mass fraction] 99 % Rickie Kumariller STRUCTURAL IRONWORKER Work Phone: [facility] 08-12-2024 16:09-0500 Systolic blood pressure 124 mm[Hg] Rickie Kumariller STRUCTURAL IRONWORKER Work Phone: [facility] 08-05-2024 15:19-0500 Body height 161.3 cm Stephan Boo DO Work Phone: [facility] 08-05-2024 15:19-0500 Body mass index (BMI) [Ratio] 21.8 kg/m2 Stephan Boo DO Work Phone: [facility] 08-05-2024 15:19-0500 Body weight 56.7 kg Stephan Boo DO Work Phone: [facility] 08-05-2024 15:19-0500 Diastolic blood pressure 84 mm[Hg] Stephan Boo DO Work Phone: [facility] 08-05-2024 15:19-0500 Systolic blood pressure 130 mm[Hg] Stephan Boo DO Work Phone: [facility] 07-01-2024 15:35-0500 Body height 165.1 cm Sherlyn Shine PA Work Phone: [facility] 07-01-2024 15:35-0500 Body mass index (BMI) [Ratio] 20.93 kg/m2 Sherlyn Shine PA Work Phone: [facility] 07-01-2024 15:35-0500 Body temperature 97.7 [degF] Sherlyn Shine PA Work Phone: [facility] 07-01-2024 15:35-0500 Body weight 57.06 kg Sherlyn Shine PA Work Phone: [facility] 07-01-2024 15:35-0500 Diastolic blood pressure 80 mm[Hg] Sherlyn Shine PA Work Phone: [facility] 07-01-2024 15:35-0500 Heart rate 86 /min Sherlyn Shine PA Work Phone: [facility] 07-01-2024 15:35-0500 SaO2% (BldA) [Mass fraction] 98 % Sherlyn Shine PA Work Phone: [facility] 07-01-2024 15:35-0500 Systolic blood pressure 120 mm[Hg] Sherlyn Shine PA Work Phone: [facility] 06-27-2024 11:13-0500 Body mass index (BMI) [Ratio] 19.97 kg/m2 Raphael Goldsmith MD Work Phone: [facility] 06-27-2024 11:13-0500 Body temperature 96.6 [degF] Raphael Goldsmith MD Work Phone: [facility] 06-27-2024 11:13-0500 Body weight 54.43 kg Raphael Goldsmith MD Work Phone: [facility] 06-27-2024 11:13-0500 Diastolic blood pressure 60 mm[Hg] Raphael Goldsmith MD Work Phone: [facility] 06-27-2024 11:13-0500 Heart rate 83 /min Raphael Goldsmith MD Work Phone: [facility] 06-27-2024 11:13-0500 Systolic blood pressure 149 mm[Hg] Raphael Goldsmith MD Work Phone: [facility] 11-22-2023 20:52-0400 Body temperature 97.7 [degF] Jayson Calloway [facility] 11-22-2023 20:52-0400 Diastolic blood pressure 80 mm[Hg] Jayson Brodie [facility] 11-22-2023 20:52-0400 Heart rate 60 /min Jayson Brodie [facility] 11-22-2023 20:52-0400 Respiratory rate 17 /min Jayson Brodie [facility] 11-22-2023 20:52-0400 SaO2% (BldA) [Mass fraction] 100 % Jayson Brodie [facility] 11-22-2023 20:52-0400 Systolic blood pressure 147 mm[Hg] Jayson Brodie [facility] 11-22-2023 18:32-0400 Heart rate 87 /min Jayson Brodie [facility] 11-22-2023 18:32-0400 Respiratory rate 18 /min Jayson Brodie [facility] 11-22-2023 18:32-0400 SaO2% (BldA) [Mass fraction] 98 % Jayson Brodie [facility] 11-22-2023 17:50-0400 Diastolic blood pressure 80 mm[Hg] Jayson Brodie [facility] 11-22-2023 17:50-0400 Heart rate 68 /min Jayson Brodie [facility] 11-22-2023 17:50-0400 Respiratory rate 18 /min Jayson Brodie [facility] 11-22-2023 17:50-0400 SaO2% (BldA) [Mass fraction] 98 % Jayson Brodie [facility] 11-22-2023 17:50-0400 Systolic blood pressure 134 mm[Hg] Jayson Brodie [facility] 11-22-2023 16:24-0400 Body temperature 96.8 [degF] Jayson Brodie [facility] 11-22-2023 16:24-0400 Diastolic blood pressure 68 mm[Hg] Jayson Brodie [facility] 11-22-2023 16:24-0400 Systolic blood pressure 131 mm[Hg] Jayson Brodie [facility] 10-05-2023 21:54-0500 Diastolic blood pressure 81 mm[Hg] Kaylinn Dokken [facility] 10-05-2023 21:54-0500 Heart rate 75 /min Kaylinn Dokken [facility] 10-05-2023 21:54-0500 Respiratory rate 19 /min Kaylinn Dokken [facility] 10-05-2023 21:54-0500 SaO2% (BldA) [Mass fraction] 100 % Kaylinn Dokken [facility] 10-05-2023 21:54-0500 Systolic blood pressure 144 mm[Hg] Kaylinn Dokken [facility] 10-05-2023 18:04-0500 Body temperature 97.7 [degF] Kaylinn Dokken [facility] 10-05-2023 18:04-0500 Diastolic blood pressure 78 mm[Hg] Kaylinn Dokken [facility] 10-05-2023 18:04-0500 Heart rate 95 /min Kaylinn Dokken [facility] 10-05-2023 18:04-0500 Respiratory rate 22 /min Koby Masterson [facility] 10-05-2023 18:04-0500 SaO2% (BldA) [Mass fraction] 100 % Koby Masterson [facility] 10-05-2023 18:04-0500 Systolic blood pressure 131 mm[Hg] Koby [facility] 09-26-2023 09:13-0500 Body height 165.1 cm Ana [place] [employer] Work Phone: [facility] 09-26-2023 09:13-0500 Body weight 50.8 kg Ana [place] [employer] Work Phone: [facility] 09-26-2023 09:13-0500 Diastolic blood pressure 57 mm[Hg] Ana [place] [employer] Work Phone: [facility] 09-26-2023 09:13-0500 Heart rate 72 /min Ana [place] [employer] Work Phone: [facility] 09-26-2023 09:13-0500 Respiratory rate 20 /min Ana [place] [employer] Work Phone: [facility] 09-26-2023 09:13-0500 SaO2% (BldA) [Mass fraction] 98 % Ana [place] [employer] Work Phone: [facility] 09-26-2023 09:13-0500 Systolic blood pressure 118 mm[Hg] Ana [place] [employer] Work Phone: [facility] 09-18-2023 17:51-0500 Body height 165.1 cm Peggy [...] Diastolic blood pressure 60 mm[Hg] Parveen Armen [facility] 09-17-2023 06:00-0500 Heart rate 61 /min Parveen Armen [facility] 09-17-2023 06:00-0500 Mean blood pressure 79 mm[Hg] Parveen Armen [facility] 09-17-2023 06:00-0500 Respiratory rate 11 /min Parveen Armen [facility] 09-17-2023 06:00-0500 SaO2% (BldA) [Mass fraction] 100 % Parveen Armen [facility] 09-17-2023 06:00-0500 Systolic blood pressure 118 mm[Hg] Parveen Armen [facility] 09-17-2023 05:06-0500 Body temperature 96.98 [degF] Parveen Armen [facility] 09-17-2023 05:06-0500 Diastolic blood pressure 58 mm[Hg] Parveen Armen [facility] 09-17-2023 05:06-0500 gluc 79 mg/dL Parveen Armen [facility] 09-17-2023 05:06-0500 gluc Parveen Armen [facility] 09-17-2023 05:06-0500 Heart rate 85 /min Parveen Armen [facility] 09-17-2023 05:06-0500 Respiratory rate 20 /min Parveen Armen [facility] 09-17-2023 05:06-0500 SaO2% (BldA) [Mass fraction] 98 % Parveen Armen [facility] 09-17-2023 05:06-0500 Systolic blood pressure 140 mm[Hg] Parveen Aremn [facility] 09-12-2023 06:38-0500 Diastolic blood pressure 93 mm[Hg] Parveen Armen [facility] 09-12-2023 06:38-0500 Heart rate 78 /min Parveen Armen [facility] 09-12-2023 06:38-0500 Mean blood pressure 109 mm[Hg] Parveen Armen [facility] 09-12-2023 06:38-0500 Respiratory rate 13 /min Parveen Armen [facility] 09-12-2023 06:38-0500 SaO2% (BldA) [Mass fraction] 98 % Parveen Armen [facility] 09-12-2023 06:38-0500 Systolic blood pressure 142 mm[Hg] Parveen Armen [facility] 09-12-2023 05:58-0500 Diastolic blood pressure 96 mm[Hg] Parveen Armen [facility] 09-12-2023 05:58-0500 Heart rate 55 /min Parveen Armen [facility] 09-12-2023 05:58-0500 Mean blood pressure 112 mm[Hg] Parveen Armen [facility] 09-12-2023 05:58-0500 Respiratory rate 16 /min Parveen Armen [facility] 09-12-2023 05:58-0500 SaO2% (BldA) [Mass fraction] 100 % Parveen Armen [facility] 09-12-2023 05:58-0500 Systolic blood pressure 144 mm[Hg] Parveen Armen [facility] 09-12-2023 04:56-0500 Diastolic blood pressure 77 mm[Hg] Parveen Armen [facility] 09-12-2023 04:56-0500 Heart rate 60 /min Parveen Armen [facility] 09-12-2023 04:56-0500 Mean blood pressure 94 mm[Hg] Parveen Armen [facility] 09-12-2023 04:56-0500 Respiratory rate 18 /min Parveen Armen [facility] 09-12-2023 04:56-0500 SaO2% (BldA) [Mass fraction] 100 % Parveen Armen [facility] 09-12-2023 04:56-0500 Systolic blood pressure 129 mm[Hg] Parveen Armen [facility] 09-12-2023 04:27-0500 gluc 96 mg/dL Parveen Armen [facility] 09-12-2023 04:27-0500 gluc Parveen Armen [facility] 09-12-2023 04:13-0500 Body temperature 96.98 [degF] Parveen Armen [facility] 09-12-2023 04:13-0500 Heart rate 83 /min Parveen Armen [facility] 09-12-2023 04:13-0500 Respiratory rate 16 /min Parveen Armen [facility] 08-11-2023 08:55-0500 Body height 165.1 cm Peggy Nazario MD Work Phone: [facility] 08-11-2023 08:55-0500 Body mass index (BMI) [Ratio] 19.44 kg/m2 Peggy Nazario MD Work Phone: [facility] 08-11-2023 08:55-0500 Body temperature 97.9 [degF] Peggy Nazario MD Work Phone: [facility] 08-11-2023 08:55-0500 Body weight 52.98 kg Peggy Nazario MD Work Phone: [facility] 08-11-2023 08:55-0500 Diastolic blood pressure 68 mm[Hg] Peggy Nazario MD Work Phone: [facility] 08-11-2023 08:55-0500 Heart rate 69 /min Peggy Nazario MD Work Phone: [facility] 08-11-2023 08:55-0500 SaO2% (BldA) [Mass fraction] 99 % Peggy Nazario MD Work Phone: [facility] 08-11-2023 08:55-0500 Systolic blood pressure 122 mm[Hg] Peggy Nazario MD Work Phone: [facility] 07-21-2023 06:46-0500 Blood Pressure Location Johan HENRIQUEZ [facility] 07-21-2023 06:46-0500 Diastolic blood pressure 57 mm[Hg] Johan HENRIQUEZ [facility] 07-21-2023 06:46-0500 Heart rate 81 /min Johan HENRIQUEZ [facility] 07-21-2023 06:46-0500 Respiratory rate 18 /min Johan HENRIQUEZ [facility] 07-21-2023 06:46-0500 SaO2% (BldA) [Mass fraction] 100 % Johan HENRIQUEZ [facility] 07-21-2023 06:46-0500 Systolic blood pressure 118 mm[Hg] Johan HENRIQUEZ [facility] 07-20-2023 09:56-0500 Blood Pressure Location Johan HENRIQUEZ [facility] 07-20-2023 09:56-0500 Diastolic blood pressure 52 mm[Hg] Johan HENRIQUEZ [facility] 07-20-2023 09:56-0500 Heart rate 62 /min Johan HENRIQUEZ [facility] 07-20-2023 09:56-0500 SaO2% (BldA) [Mass fraction] 98 % Johan HENRIQUEZ [facility] 07-20-2023 09:56-0500 Systolic blood pressure 105 mm[Hg] Johan HENRIQUEZ [facility] 07-07-2023 12:38-0500 Diastolic blood pressure 59 mm[Hg] Jeff Cross [facility] 07-07-2023 12:38-0500 Heart rate 94 /min Jeff Wadee [facility] 07-07-2023 12:38-0500 Respiratory rate 13 /min Jeff Wadee [facility] 07-07-2023 12:38-0500 SaO2% (BldA) [Mass fraction] 94 % Jeff Tay [facility] 07-07-2023 12:38-0500 Systolic blood pressure 123 mm[Hg] Jeff Tay [facility] 07-07-2023 12:00-0500 Diastolic blood pressure 83 mm[Hg] Jeff Wadee [facility] 07-07-2023 12:00-0500 Heart rate 102 /min Jeff Wadee [facility] 07-07-2023 12:00-0500 Mean blood pressure 96 mm[Hg] Jeff Tay [facility] 07-07-2023 12:00-0500 Respiratory rate 17 /min Jeff Wadee [facility] 07-07-2023 12:00-0500 SaO2% (BldA) [Mass fraction] 96 % Jeff Tay [facility] 07-07-2023 11:34-0500 Diastolic blood pressure 73 mm[Hg] Jeff Tay [facility] 07-07-2023 11:34-0500 Heart rate 93 /min Jeff Tay [facility] 07-07-2023 11:34-0500 Respiratory rate 18 /min Jeff Tay [facility] 07-07-2023 11:34-0500 SaO2% (BldA) [Mass fraction] 94 % Jeff Cross [facility] 07-07-2023 11:34-0500 Systolic blood pressure 109 mm[Hg] Jeff Cross [facility] 07-07-2023 09:52-0500 Heart rate 103 /min Jeff Cross [facility] 07-07-2023 08:57-0500 Body temperature 97.88 [degF] Jeff Cross [facility] 07-07-2023 08:57-0500 Heart rate 134 /min Jeff Cross [facility] 07-07-2023 08:57-0500 Respiratory rate 24 /min Jeff Cross [facility] 07-06-2023 14:03-0500 Hourly Rounding Ronobir ABDI [facility] 07-06-2023 14:03-0500 Promise to Return Ronobir ABDI [facility] 07-06-2023 13:34-0500 Hourly Rounding Ronobir ABDI [facility] 07-06-2023 13:00-0500 Hourly Rounding Ronobir ABDI [facility] 07-06-2023 13:00-0500 Promise to Return Ronobir ABDI [facility] 07-06-2023 12:07-0500 Promise to Return Ronobir ABDI [facility] 07-06-2023 12:00-0500 Blood Pressure Location Ronobir ABDI [facility] 07-06-2023 12:00-0500 Body temperature 98.06 [degF] Ronobir ABDI [facility] 07-06-2023 12:00-0500 Diastolic blood pressure 69 mm[Hg] Ronobir ABDI [facility] 07-06-2023 12:00-0500 Heart rate 78 /min Ronobir ABDI [facility] 07-06-2023 12:00-0500 Mean blood pressure 81 mm[Hg] Ronobir ABDI [facility] 07-06-2023 12:00-0500 SaO2% (BldA) [Mass fraction] 94 % Ronobir ABDI [facility] 07-06-2023 12:00-0500 Systolic blood pressure 105 mm[Hg] Ronobir ABDI [facility] 07-06-2023 10:00-0500 Diastolic blood pressure 66 mm[Hg] Ronobir ABDI [facility] 07-06-2023 10:00-0500 Heart rate 77 /min Ronobir ABDI [facility] 07-06-2023 10:00-0500 Mean blood pressure 78 mm[Hg] Ronobir ABDI [facility] 07-06-2023 10:00-0500 Systolic blood pressure 103 mm[Hg] Ronobir ABDI [facility] 07-06-2023 07:00-0500 Body temperature 97.7 [degF] Ronobir ABDI [facility] 07-06-2023 07:00-0500 Diastolic blood pressure 60 mm[Hg] Ronobir ABDI [facility] 07-06-2023 07:00-0500 SaO2% (BldA) [Mass fraction] 93 % Ronobir ABDI [facility] 07-06-2023 07:00-0500 Systolic blood pressure 97 mm[Hg] Ronobir ABDI [facility] 07-06-2023 00:18-0500 Body temperature 97.7 [degF] Ronobir ABDI [facility] 07-06-2023 00:18-0500 SaO2% (BldA) [Mass fraction] 93 % Ronobir ABDI [facility] 07-05-2023 22:10-0500 Mean blood pressure 79 mm[Hg] Ronobir ABDI [facility] 07-05-2023 16:03-0500 Mean blood pressure 88 mm[Hg] Ronobir ABDI [facility] 07-05-2023 11:18-0500 Mean blood pressure 77 mm[Hg] Ronobir ABDI [facility] 07-05-2023 11:18-0500 Body temperature 98.06 [degF] Ronobir ABDI [facility] 07-05-2023 09:59-0500 Mean blood pressure 86 mm[Hg] Ronobir ABDI [facility] 07-05-2023 09:58-0500 Body temperature 98.42 [degF] Ronobir ABDI [facility] 07-04-2023 19:23-0500 Body temperature 97.7 [degF] Ronobir ABDI [facility] 07-03-2023 18:22-0500 BP/Pulse Patient Position Ronobir ABDI [facility] 07-03-2023 14:00-0500 Respiratory rate 17 /min Ronobir ABDI [facility] 07-03-2023 06:46-0500 Respiratory rate 18 /min Ronobir ABDI [facility] 07-03-2023 06:45-0500 BP/Pulse Patient Position Ronobir ABDI [facility] 07-03-2023 04:30-0500 Respiratory rate 16 /min Ronobir ABDI [facility] 07-03-2023 02:45-0500 Heart rate 90 /min Ronobir ABDI [facility] 07-03-2023 02:30-0500 Respiratory rate 12 /min Ronobir ABDI [facility] 07-03-2023 02:15-0500 Respiratory rate 13 /min Ronobir ABDI [facility] 07-02-2023 21:27-0500 Heart rate 141 /min Ronobir ABDI [facility] 07-02-2023 21:27-0500 Respiratory rate 18 /min Ronobir ABDI [facility] 07-01-2023 00:30-0500 Diastolic blood pressure 76 mm[Hg] Kaylinn Dokken [facility] 07-01-2023 00:30-0500 Heart rate 102 /min Kaylinn Dokken [facility] 07-01-2023 00:30-0500 Mean blood pressure 82 mm[Hg] Kaylinn Dokken [facility] 07-01-2023 00:30-0500 Respiratory rate 18 /min Kaylinn Dokken [facility] 07-01-2023 00:30-0500 SaO2% (BldA) [Mass fraction] 95 % Kaylinn Dokken [facility] 07-01-2023 00:30-0500 Systolic blood pressure 93 mm[Hg] Kaylinn Dokken [facility] 06-30-2023 23:24-0500 Diastolic blood pressure 73 mm[Hg] Kaylinn Dokken [facility] 06-30-2023 23:24-0500 Heart rate 102 /min Kaylinn Dokken [facility] 06-30-2023 23:24-0500 Mean blood pressure 92 mm[Hg] Kaylinn Dokken [facility] 06-30-2023 23:24-0500 Respiratory rate 16 /min Kaylinn Dokken [facility] 06-30-2023 23:24-0500 SaO2% (BldA) [Mass fraction] 94 % Kaylinn Dokken [facility] 06-30-2023 23:24-0500 Systolic blood pressure 130 mm[Hg] Kaylinn Dokken [facility] 06-30-2023 22:30-0500 Body temperature 97.88 [degF] Kaylinn Dokken [facility] 06-30-2023 22:30-0500 Diastolic blood pressure 112 mm[Hg] Kaylinn Dokken [facility] 06-30-2023 22:30-0500 Heart rate 114 /min Kaylinn Dokken [facility] 06-30-2023 22:30-0500 Mean blood pressure 120 mm[Hg] Caitlyninn Dokken [facility] 06-30-2023 22:30-0500 Respiratory rate 18 /min Lisylinn Dokken [facility] 06-30-2023 22:30-0500 SaO2% (BldA) [Mass fraction] 100 % Caitlyninn Dokken [facility] 06-30-2023 22:30-0500 Systolic blood pressure 137 mm[Hg] Caitlyninn Dokken [facility] 06-30-2023 19:33-0500 Body temperature 97.7 [degF] Caitlyninn Dokken [facility] 06-30-2023 19:33-0500 Heart rate 123 /min Aran kken [facility] 04-26-2023 15:19-0400 Blood Pressure Location Micheline BROOKS [facility] 04-26-2023 15:19-0400 Diastolic blood pressure 88 mm[Hg] Micheline BROOKS [facility] 04-26-2023 15:19-0400 Heart rate 80 /min Micheline BROOKS [facility] 04-26-2023 15:19-0400 Systolic blood pressure 139 mm[Hg] Micheline BROOKS [facility] 04-04-2023 16:30-0400 Diastolic blood pressure 51 mm[Hg] Jeff Cross [facility] 04-04-2023 16:30-0400 Heart rate 39 /min Jeff Tay [facility] 04-04-2023 16:30-0400 Respiratory rate 14 /min Jeff Tay [facility] 04-04-2023 16:30-0400 SaO2% (BldA) [Mass fraction] 99 % Jeff Tay [facility] 04-04-2023 16:30-0400 Systolic blood pressure 145 mm[Hg] Jeff Tay [facility] 04-04-2023 15:52-0400 Body temperature 98.06 [degF] Jeff Tay [facility] 04-04-2023 15:52-0400 Diastolic blood pressure 81 mm[Hg] Jeff Tay [facility] 04-04-2023 15:52-0400 Heart rate 66 /min Jeff Tay [facility] 04-04-2023 15:52-0400 Respiratory rate 14 /min Jeff Tay [facility] 04-04-2023 15:52-0400 SaO2% (BldA) [Mass fraction] 99 % Jeff Tay [facility] 04-04-2023 15:52-0400 Systolic blood pressure 161 mm[Hg] Jeff Tay [facility] 04-04-2023 14:52-0400 Diastolic blood pressure 79 mm[Hg] Jeff Tay [facility] 04-04-2023 14:52-0400 Heart rate 64 /min Jeff Tay [facility] 04-04-2023 14:52-0400 Respiratory rate 14 /min Jeff Tay [facility] 04-04-2023 14:52-0400 SaO2% (BldA) [Mass fraction] 100 % Jeff Cross [facility] 04-04-2023 14:52-0400 Systolic blood pressure 95 mm[Hg] Jeff Cross [facility] 04-04-2023 14:07-0400 Body temperature 98.06 [degF] Jeff Cross [facility] 04-04-2023 13:52-0400 Body temperature 98.24 [degF] Jeff Cross [facility] 04-04-2023 13:52-0400 Heart rate 107 /min Jeff Cross [facility] 01-28-2023 21:23-0400 Body temperature 97.7 [degF] [facility] 01-28-2023 21:23-0400 Diastolic blood pressure 78 mm[Hg] [facility] 01-28-2023 21:23-0400 Heart rate 82 /min [facility] 01-28-2023 21:23-0400 Respiratory rate 18 /min [facility] 01-28-2023 21:23-0400 SaO2% (BldA) [Mass fraction] 97 % [facility] 01-28-2023 21:23-0400 Systolic blood pressure 125 mm[Hg] [facility] 09-01-2022 14:01-0500 Diastolic blood pressure 75 mm[Hg] Yennifer Iraheta [facility] 09-01-2022 14:01-0500 Mean blood pressure 91 mm[Hg] Yennifer Iraheta [facility] 09-01-2022 14:01-0500 Systolic blood pressure 122 mm[Hg] Mohamed Esequiel [facility] 09-01-2022 13:48-0500 Blood Pressure Location Yennifer Esequiel [facility] 09-01-2022 13:48-0500 Diastolic blood pressure 79 mm[Hg] Yennifer Esequiel [facility] 09-01-2022 13:48-0500 Heart rate 60 /min Yennifer Esequiel [facility] 09-01-2022 13:48-0500 SaO2% (BldA) [Mass fraction] 98 % Yennifer Esequiel [facility] 09-01-2022 13:48-0500 Systolic blood pressure 149 mm[Hg] Yennifer Esequiel [facility] 06-13-2022 08:54-0400 Blood Pressure Location Yennifer Esequiel [facility] 06-13-2022 08:54-0400 Diastolic blood pressure 68 mm[Hg] Yennifer Esequiel [facility] 06-13-2022 08:54-0400 Heart rate 75 /min Yennifer Esequiel [facility] 06-13-2022 08:54-0400 SaO2% (BldA) [Mass fraction] 96 % Yennifer Esequiel [facility] 06-13-2022 08:54-0400 Systolic blood pressure 132 mm[Hg] Yennifer Esequiel [facility] 03-03-2022 09:59-0400 Blood Pressure Location CARMINA GARRISON [facility] 03-03-2022 09:59-0400 Diastolic blood pressure 89 mm[Hg] CARMINA GARRISON [facility] 03-03-2022 09:59-0400 Heart rate 77 /min CARMINA GARRISON [facility] 03-03-2022 09:59-0400 Systolic blood pressure 140 mm[Hg] CARMINA GARRISON [facility] 02-15-2022 13:17-0400 Body temperature 98.6 [degF] Jeff Cross [facility] 02-15-2022 13:17-0400 Diastolic blood pressure 62 mm[Hg] Jeff Cross [facility] 02-15-2022 13:17-0400 Heart rate 86 /min Jeff Cross [facility] 02-15-2022 13:17-0400 Respiratory rate 18 /min Jeff Cross [facility] 02-15-2022 13:17-0400 SaO2% (BldA) [Mass fraction] 99 % Jeff Cross [facility] 02-15-2022 13:17-0400 Systolic blood pressure 151 mm[Hg] Jeff Wadee [facility] 12-24-2021 17:39-0400 Body temperature 97.7 [degF] Jeff Wadee [facility] 12-24-2021 17:39-0400 Diastolic blood pressure 70 mm[Hg] Jeff Tay [facility] 12-24-2021 17:39-0400 Heart rate 81 /min Jeff Wadee [facility] 12-24-2021 17:39-0400 Respiratory rate 15 /min Jeff Cross [facility] 12-24-2021 17:39-0400 SaO2% (BldA) [Mass fraction] 100 % Jeff Corss [facility] 12-24-2021 17:39-0400 Systolic blood pressure 163 mm[Hg] Jeff Cross [facility] Encounters Encounter Date Encounter Type Care Provider Facility Start: 04-07-2025 End: 04-07-2025 Shaggy Brian MD Work Phone: [facility] Start: 04-07-2025 End: 04-07-2025 Shaggy Brian MD Work Phone: [facility] Start: 04-07-2025 End: 04-07-2025 Office outpatient visit 25 minutes Hannah Brian MD Work Phone: [facility] Comment on above: Frequent urination ( Primary Dx); Painful urination; Left lower quadrant pain; Gastroesophageal reflux disease without esophagitis; Exertional dyspnea; Mitral valve regurgitation due to cardiomyopathy (HCC); Hypertensive heart disease with heart failure (HCC); Unspecified systolic (congestive) heart failure (HCC) Start: 04-07-2025 End: 04-07-2025 ambulatory HANNAH BRIAN Not Available Start: 03-31-2025 End: 03-31-2025 ambulatory [facility] Start: 02-18-2025 End: 02-18-2025 ambulatory PATTY [facility] Start: 02-10-2025 End: 02-10-2025 ambulatory [facility] Start: 01-23-2025 End: 01-23-2025 ambulatory MARJ [facility] Start: 01-22-2025 End: 01-22-2025 Shaggy Brian MD Work Phone: [facility] Start: 01-22-2025 End: 01-22-2025 Shaggy Brian MD Work Phone: [facility] Start: 01-22-2025 End: 01-22-2025 Office outpatient visit 25 minutes Hannah Brian MD Work Phone: [facility] Comment on above: Atrial fibrillation, persistent (HCC) (CMS/HCC) (Primary Dx); 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; Mitral valve regurgitation due to cardiomyopathy (HCC) (CMS/HCC); Anxiety Start: 01-22-2025 End: 01-22-2025 ambulatory HANNAH BRIAN Not Available Start: 01-15-2025 Evaluation and manag ement of inpatient [facility] Start: 01-14-2025 Evaluation and manag ement of inpatient [facility] Start: 01-14-2025 ambulatory [facility] Start: 01-14-2025 End: 01-15-2025 Evaluation and management of inpatient [facility] Start: 01-13-2025 End: 01-13-2025 Shira Shettya Steve [facility] Comment on above: Anxiety Start: 01-07-2025 End: 01-07-2025 Office outpatient visit 25 minutes Hannah Brian MD Work Phone: [facility] Comment on above: Atrial fibrillation, persistent (HCC) (CMS/HCC) (Primary Dx); care home 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; Primary hypertension (CMS/HCC); Anxiety; Panic attack (CMS/HCC) Start: 01-07-2025 End: 01-07-2025 ambulatory HANNAH BRIAN Not Available Start: 01-07-2025 End: 01-07-2025 Shaggy Brian MD Work Phone: [facility] Start: 01-07-2025 End: 01-07-2025 Shaggy Brian MD Work Phone: [facility] Start: 12-23-[facility]24 [facility] Start: 12-17-2024 End: 12-17-2024 Office outpatient visit 15 minutes Hannah Brian MD Work Phone: [facility] Comment on above: Hematuria, unspecifi ed type (Primary Dx); Right flank pain; Dysuria; Urinary frequency Start: 12-17-2024 End: 12-17-2024 ambulatory HANNAH BRIAN Not Available Start: 12-17-2024 End: 12-17-2024 Bamchelita Brian MD Work Phone: [facility] Start: 12-17-2024 End: 12-17-2024 Shaggy Brian MD Work Phone: [facility] Start: 12-16-2024 End: 12-17-2024 Refill Hannah Brian MD Work Phone: [facility] Comment on above: Anxiety Start: 12-13-2024 ambulatory [facility] Start: 11-29-2024 End: 11-29-2024 ambulatory [facility] Start: 11-25-2024 End: 11-25-2024 Shaggy Brian MD Work Phone: [facility] Start: 11-25-2024 End: 11-25-2024 Bamboo lalit Brian MD Work Phone: [facility] Start: 11-25-2024 End: 11-25-2024 Office outpatient visit 25 minutes Hannah Brian MD Work Phone: [facility] Comment on above: Acute cough (Primary Dx); Bruising; 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; Atrial fibrillation, persistent (HCC) (CMS/HCC); Primary hypertension (CMS/HCC); Cardiomyopathy, unspecified Start: 11-25-2024 End: 11-25-2024 ambulatory HANNAH BRIAN Not Available Start: 11-18-2024 End: 11-21-2024 External Result Encounter Hannah Brian MD Work Phone: [facility] External Department Unsolicited Start: 11-18-2024 End: 11-21-2024 External Result Encounter Hannah Brian MD Work Phone: [facility] External Department Unsolicited Start: 11-18-2024 End: 11-18-2024 Office outpatient visit 25 minutes Hannah Brian MD Work Phone: [facility] Comment on above: Acute cough (Primary Dx); Hematuria, unspecified type; 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; Atrial fibrillation, persistent (HCC) (CMS/HCC); Primary hypertension (CMS/HCC) Start: 11-18-2024 End: 11-18-2024 ambulatory HANNAH BRIAN Not Available Start: 11-15-2024 End: 11-18-2024 Refill Hannah Brian MD Work Phone: [facility] Comment on above: Anxiety Start: 10-22-2024 End: 10-22-2024 ambulatory [facility] Start: 10-08-2024 End: 10-08-2024 Bamboo flowsheet Sherlyn ABRAMS Work Phone: [facility] Start: 10-08-2024 End: 10-08-2024 Bamboo flowsheet Sherlyn Shine PA Work Phone: [facility] Start: 10-08-2024 [...] 08-20-2024 Refill Hannah Brian MD Work Phone: [facility] Comment on above: Anxiety Start: 08-12-2024 End: 08-12-2024 Office outpatient visit 25 minutes Rickie A Gabbyr [employer] Work Phone: [facility] Comment on above: Dysuria (Primary Dx) ; Urinary frequency; Atrial fibrillation, persistent (HCC) (CMS/HCC); 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; BMI 22.0-22.9, adult Start: 08-12-2024 End: 08-12-2024 ambulatory RICKIE Gaetano RUSSELLR Not Available Start: 08-12-2024 End: 08-12-2024 Bamboo flowsheet Rickie A Gabbyr STRUCTURAL IRONWORKER Work Phone: [facility] Start: 08-12-2024 End: 08-12-2024 Bamboo flowsheet Rickie A Donnamiller STRUCTURAL IRONWORKER Work Phone: [facility] Start: 08-05-2024 End: 08-05-2024 Office outpatient visit 25 minutes Stephan Boo DO Work Phone: [facility] Comment on above: Postmenopausal atrop hic vaginitis; Breast cancer screening by mammogram Start: 08-05-2024 End: 08-05-2024 ambulatory STEPHAN BOO Not Available Start: 07-30-2024 End: 07-30-2024 ambulatory [facility] Start: 07-22-2024 End: 07-23-2024 Refill Hannah Brian MD Work Phone: [facility] Comment on above: Anxiety Start: 07-02-2024 End: 07-02-2024 ambulatory [facility] Start: 07-01-2024 End: 07-01-2024 Office outpatient [...] Start: 06-27-2024 End: 06-27-2024 ambulatory PEGGY NAZARIO Facility:[facility] Start: 06-27-2024 End: 06-27-2024 Patient encounter procedure Raphael Goldsmith MD Work Phone: Urology Comment on above: Feeling of incomplet e bladder emptying (Primary Dx); Stricture of female urethra, unspecified stricture type Start: 06-10-2024 ambulatory [facility] Start: 06-10-2024 End: 06-10-2024 ambulatory [facility] Start: 06-03-2024 End: 06-03-2024 ambulatory [facility] [place] Start: 06-03-2024 End: 06-03-2024 Patient encounter procedure PATTY MAXIMILIAN [facility] Start: 05-27-2024 End: 05-27-2024 ambulatory [facility] Start: 05-07-2024 End: 05-07-2024 Patient encounter procedure Raphael Goldsmith MD Work Phone: Urology Comment on above: Stricture of female urethra, unspecified stricture type (Primary Dx); Feeling of incomplete bladder emptying Start: 05-07-2024 End: 05-10-2024 ambulatory Raphael Goldsmith MD Work Phone: Urology Start: 01-24-2024 ambulatory Micheline Rothman ty:WILL Landisy Start: 12-22-2023 Refill Ana French Lick LAPPERSANDRA Work Phone: Cardiology Comment on above: Refill Request Start: 11-22-2023 End: 11-22-2023 Emergency department patient visit Jayson De LeonElise Calloway [facility] Start: 11-13-2023 End: 11-13-2023 ambulatory Hannah Brian [place] Start: 11-13-2023 End: 11-13-2023 Patient encounter procedure Hannah De Leon Snehal [facility] Start: 10-16-2023 Telephone encounter Alea lynn MD Work Phone: Cardiology Comment on above: Patient Update Start: 10-16-2023 End: 10-16-2023 Patient encounter procedure Raphael Goldsmith MD Work Phone: Urology Comment on above: Feeling of incomplet e bladder emptying (Primary Dx); Stricture of female urethra, unspecified stricture type; Severe protein-calorie malnutrition (HCC) Start: 10-16-2023 End: 10-16-2023 ambulatory PEGGY NAZARIO Facility:[facility] Start: 10-05-2023 End: 10-05-2023 Emergency department patient visit Koby Masterson [facility] Start: 10-02-2023 Telephone encounter Alea lynn MD Work Phone: Cardiology Comment on above: Results Start: 09-26-2023 End: 09-26-2023 ambulatory Raphael Goldsmith MD Work Phone: Urology Start: 09-26-2023 Clinisync Result Encounter Generic External Data Provider [facility] Unsolicited Start: 09-26-2023 Clinisync Result Encounter Generic External Data Provider [facility] Unsolicited Start: 09-26-2023 End: 09-26-2023 Patient encounter procedure Ana Rivas APRN.MEDICAL ASSOCIATE Work Phone: Cardiology Comment on above: Non-rheumatic mitral regurgitation (Primary Dx); Chronic HFrEF (heart failure with reduced ejection fraction) (HCC); Nonrheumatic tricuspid valve regurgitation; Non-ischemic cardiomyopathy (HCC); Persistent atrial fibrillation (HCC); care home 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; History of cardioversion; [...] (I70.0) Start: 09-17-2023 Telephone encounter Carmina larios APRN.MEDICAL ASSOCIATE Work Phone: Cardiothoracic Comment on above: Medication Problem Start: 09-17-2023 End: 09-17-2023 Emergency department patient visit Parveen SElise Ayers [facility] Start: 09-13-2023 Refill Peggy Nazario MD Work Phone: [facility] Comment on above: Anxiety Start: 09-12-2023 Refill Peggy Nazario MD Work Phone: [facility] Comment on above: Gastroesophageal ref lux disease without esophagitis Start: 09-12-2023 End: 09-12-2023 Emergency department patient visit Parveen SElise Ayers [facility] Start: 08-28-2023 End: 08-28-2023 ambulatory PEGGY NAZARIO Facility:[facility] Start: 08-24-2023 Evaluation and manag ement of inpatient AMINA PETERSEN Facility:[facility] Start: 08-23-2023 End: 08-24-2023 Patient encounter procedure Prieto Villalba DO [facility] Start: 08-23-2023 End: 08-24-2023 ambulatory Prieto Villalba [...] to same day surgery center Johan HENRIQUEZ [facility] Start: 07-21-2023 End: 07-21-2023 ambulatory Johan HENRIQUEZ [place] Start: 07-20-2023 End: 07-20-2023 ambulatory XXXX NONE [place] [place] Start: 07-20-2023 End: 07-20-2023 Patient encounter procedure Johan HENRIQUEZ [facility] Start: 07-19-2023 End: 07-19-2023 ambulatory Micheline BROOKS Facility: [place] Start: 07-07-2023 End: 07-07-2023 Emergency department patient visit Jeff Cross [facility] Start: 07-04-2023 End: 07-06-2023 Pre-admission assessment Johan HENRIQUEZ [facility] Start: 07-02-2023 End: 07-06-2023 ambulatory Nahid OJUKWU [place] [place] [place] Start: 07-02-2023 End: 07-06-2023 Observation Noman PATTON [facility] Start: 06-30-2023 End: 07-01-2023 Emergency department patient visit Koby Salter Dojd [facility] Start: 04-26-2023 End: 04-26-2023 Patient encounter procedure Micheline BROOKS [facility] Start: 04-04-2023 End: 04-04-2023 Emergency department patient visit Jeff Cross [facility] Start: 01-28-2023 End: 01-28-2023 Emergency department patient visit Layton Loerapedro [facility] Start: 12-05-2022 End: 12-05-2022 Patient encounter procedure Peggy Nazario [facility] Start: 10-25-2022 End: 10-25-2022 Patient encounter procedure Micheline BROOKS [facility] Start: 10-03-2022 End: 10-03-2022 Patient encounter procedure Asuncion Reyna [facility] [place] Start: 09-01-2022 End: 09-01-2022 Patient encounter procedure Yennifer Iraheta [facility] Start: 07-12-2022 End: 07-12-2022 Patient encounter procedure Yennifer Iraheta [facility] Start: 06-13-2022 End: 06-13-2022 Patient encounter procedure Yennifer Iraheta [facility] Start: 03-03-2022 End: 03-03-2022 Patient encounter procedure CAMRINA GARRISON [facility] [place] Start: 02-15-2022 End: 02-15-2022 Emergency department patient visit Jeff Cross [facility] Start: 12-24-2021 End: 12-24-2021 Emergency department patient visit Jeff Cross [facility] Start: 08-11-2021 End: 11-10-2021 Patient encounter procedure Peggy Nazario [facility] Procedures Date Procedure Procedure Detail Performing Clinician Start: 04-07-2025 Urnls dip stick/tabl et rgnt non-auto w/o micrscp Hannah Brian MD Work Phone: Start: 12-17-2024 Urnls dip stick/tabl et rgnt non-auto w/o micrscp Hannah Brian MD Work Phone: Start: 11-18-2024 Culture bacterial quanttative colony count urine Hannah Brian MD Work Phone: Start: 11-18-2024 Urnls dip stick/tabl et rgnt non-auto w/o micrscp Hannah Brian MD Work Phone: Start: 08-12-2024 Urnls dip stick/tabl et rgnt non-auto w/o micrscp Rickie Aviles NP Work Phone: Start: 07-01-2024 Urnls [...] ant neoplasm of colon [facility] Start: 01-30-2028 Urine microalbumin profile DTa P,Tdap,Td Vaccine (5 - Td or Tdap) [facility] Start: 02-21-2027 [facility] Start: 09-26-2026 [facility] Start: 08-31-2026 [facility] Start: 04-09-2025 End: 04-09-2025 Patient encounter procedure 04/09/2025 3:20 PM EDT Office Visit [facility] [address] [place] [phone] Hannah Brian MD [address] [place] [address] [facility]MA[facility] Start: 04-07-2025 End: 04-07-2025 Patient encounter procedure 04/07/2025 1:40 PM EDT Office Visit FAWAD [place] [facility] [address] [place] [phone] Hannah Brian MD [address] [place] [address] [facility] [place] [facility] Comment on above: Arrived Start: 01-22-2025 End: 01-22-2025 Patient encounter procedure 01/22/2025 2:00 PM EDT [facility] [address] [place] [phone] Hannah Brian MD [address] [place] [address] Arrived [facility] Comment on above: Arrived Start: 01-07-2025 End: 01-07-2025 Patient encounter procedure [facility] Comment on above: Arrived Start: 12-17-2024 End: 12-17-2024 Patient encounter procedure [facility] Comment on above: Arrived Start: 12-17-2024 End: 12-17-2025 Bacteria identified in Urine by Culture Urine culture Microbiology Routine Right flank pain Dysuria Urinary frequency Expected: 12/17/2024 (Approximate), Expires: 12/17/2025 [facility] Work Phone: Comment on above: Expected: 12/17/2024 (Approximate), Expires: 12/17/2025 Start: 11-25-2024 End: 11-25-2024 Patient encounter procedure 11/25/2024 11:00 AM EDT Office Visit [facility] [address] [place] [phone] Hannah Brian MD [address] [place] [address] Arrived [facility] Comment on above: Arrived Start: 11-18-2024 End: 11-18-2025 Bacteria identified in Urine by Culture Urine culture Microbiology Routine Hematuria, unspecified type Expected: 11/18/2024 (Approximate), Expires: 11/18/2025 [facility] Work Phone: Comment on above: Expected: 11/18/2024 (Approximate), Expires: 11/18/2025 Start: 11-08-2024 Pneumococcal Vaccine : 65+ Years (1 of 2 - PCV) Pneumococcal Vaccine: 65+ Years (1 of 2 - PCV) [facility] Comment on above: Postponed from 03/18 (Patient Refused) Start: 10-08-2024 End: 10-08-2024 Patient encounter procedure [facility] Comment on above: Arrived Start: 09-26-2024 BP Controlled (<130/80) BP Controlle d (<130/80) [facility] Start: 08-28-2024 BP Controlled (<130/80) BP Controlle d (<130/80) [facility] Start: 08-12-2024 End: 08-12-2024 Patient encounter procedure 08/12/2024 4:00 PM EST Office Visit [facility] [address] [place] [phone] Rickie vAiles NP [address] [place] [address] Arrived [facility] Comment on above: Arrived Start: 08-05-2024 End: 08-05-2024 Patient encounter procedure 08/05/2024 2:45 PM EST Office Visit [facility] [address] [place] [address] Stephan Boo, DO [address] [place] [address] [facility] Start: 08-05-2024 End: 10-06-2025 DBT Breast - bilateral screening Bilateral screening mammogram with tomosynthesis Imaging Routine Breast cancer screening by mammogram Expected: 08/05/2024, Expires: 10/06/2025 [facility] Work Phone: Comment on above: Expected: 08/05/2024 , Expires: 10/06/2025 Start: 07-29-2024 End: 07-29-2024 Patient encounter procedure 07/29/2024 3:45 PM EST Office Visit [facility] [address] [place] [phone] Stephan Boo, DO [address] [place] [address] [facility] Start: 07-24-2024 Medicare Annual Well ness (AWV) Medicare Annual Wellness (AWV) [facility] Start: 07-01-2024 End: 07-01-2024 Patient encounter procedure 07/01/2024 3:30 PM EST Office Visit [facility] [address] [place] [phone] Sherlyn Shine PA [address] [place] [address] Arrived [facility] Comment on above: Arrived Start: 07-01-2024 [...] 11:10 AM EDT Office Visit Urology [address] [address] Raphael Goldsmith MD [address] [place] [address] 6 month follow up per cc chart Urology Comment on above: 6 month follow up pe r cc chart Start: 04-14-2024 Covid-19 Vaccine ( season) Covid-19 Vaccine ( season) [facility] Start: 04-14-2024 Influenza vaccination [facility] Start: 11-10-2023 End: 11-10-2023 Patient encounter procedure 11/10/2023 1:00 PM EDT Office Visit [facility] QUEZADA [address] [place] [phone] Peggy Nazario MD [address] [place] [address] [facility] QUEZADA Start: 11-08-2023 End: 02-07-2024 Basic metabolic 2000 panel - Serum or Plasma BASIC METABOLIC PNL Lab Routine Non-rheumatic mitral regurgitation Persistent atrial fibrillation (HCC) Non-ischemic cardiomyopathy (HCC) Chronic HFrEF (heart failure with reduced ejection fraction) (HCC) Expected: 11/08/2023 (Approximate), Expires: 02/07/2024 [facility] Work Phone: Comment on above: Expected: 11/08/2023 (Approximate), Expires: 02/07/2024 Start: 11-08-2023 End: 09-26-2024 ECG COMPLETE ECG COMPLETE ECG Routine Non-rheumatic mitral regurgitation Persistent atrial fibrillation (HCC) Non-ischemic cardiomyopathy (HCC) Chronic HFrEF (heart failure with reduced ejection fraction) (HCC) Expected: 11/08/2023 (Approximate), Expires: 09/26/2024 [facility] Work Phone: Comment on above: Expected: 11/08/2023 (Approximate), Expires: 09/26/2024 Start: 10-25-2023 End: 01-24-2024 Basic metabolic 2000 panel - Serum or Plasma BASIC METABOLIC PNL Lab Routine Non-rheumatic mitral regurgitation Persistent atrial fibrillation (HCC) Non-ischemic cardiomyopathy (HCC) Chronic HFrEF (heart failure with reduced ejection fraction) (HCC) Expected: 10/25/2023, Expires: 01/24/2024 [facility] Work Phone: Comment on above: Expected: 10/25/2023 , Expires: 01/24/2024 Start: 10-25-2023 End: 09-26-2024 ECG COMPLETE ECG COMPLETE ECG Routine Non-rheumatic mitral regurgitation Persistent atrial fibrillation (HCC) Non-ischemic cardiomyopathy (HCC) Chronic HFrEF (heart failure with reduced ejection fraction) (HCC) Expected: 10/25/2023, Expires: 09/26/2024 [facility] Work Phone: Comment on above: Expected: 10/25/2023 , Expires: 09/26/2024 Start: 10-10-2023 End: 01-09-2024 Basic metabolic 2000 panel - Serum or Plasma BASIC METABOLIC PNL Lab Routine Non-rheumatic mitral regurgitation Persistent atrial fibrillation (HCC) Non-ischemic cardiomyopathy (HCC) Chronic HFrEF (heart failure with reduced ejection fraction) (HCC) Expected: 10/10/2023 (Approximate), Expires: 01/09/2024 [facility] Work Phone: Comment on above: Expected: 10/10/2023 (Approximate), Expires: 01/09/2024 Start: 10-10-2023 End: 09-26-2024 ECG COMPLETE ECG COMPLETE ECG Routine Non-rheumatic mitral regurgitation Persistent atrial fibrillation (HCC) Non-ischemic cardiomyopathy (HCC) Chronic HFrEF (heart failure with reduced ejection fraction) (HCC) Expected: 10/10/2023 (Approximate), Expires: 09/26/2024 [facility] Work Phone: Comment on above: Expected: 10/10/2023 (Approximate), Expires: 09/26/2024 Start: 10-06-2023 End: 10-06-2023 Patient encounter procedure 10/06/2023 1:00 PM EST Office Visit [facility] [address] [place] [phone] Peggy Nazario MD [address] [place] [address] [facility] Start: 09-26-2023 End: 12-26-2023 Basic metabolic 2000 panel - Serum or Plasma BASIC METABOLIC PNL Lab Routine Non-rheumatic mitral regurgitation Persistent atrial fibrillation (HCC) Non-ischemic cardiomyopathy (HCC) Chronic HFrEF (heart failure with reduced ejection fraction) (HCC) Expected: 09/26/2023, Expires: 12/26/2023 [facility] Work Phone: Comment on above: Expected: 09/26/2023 , Expires: 12/26/2023 Start: 08-14-2023 Advance Directive Discussion Advance Directive Discussion [facility] Start: 08-14-2023 Behavioral Health Screening Behavioral Health Screening [facility] Start: 08-14-2023 Depression Assessment Depression Ass essment [facility] Start: 04-14-2023 Covid-19 Vaccine () Covid-19 Vaccine () [facility] Start: 04-14-2023 Influenza vaccination Influenza Vacc ine (#1) [facility] Start: 2023 RSV Vaccine (1 - 1-d ose 75+ series) RSV Vaccine (1 - 1-dose 75+ series) [facility] Start: 08-14-2022 Advance Directive Discussion Advance Directive Discussion [facility] Start: 08-14-2022 Depression Assessment Depression Ass essment [facility] Start: 02-15-2019 Colonoscopy Colonoscopy [facility] Start: 02-15-2019 Colorectal Cancer Screening Colorectal Cancer Screening [facility] Start: 02-15-2019 Screening for malign ant neoplasm of colon [facility] Start: 2013 Bone Density Screening Bone Density Screening [facility] Start: 2013 Pneumococcal Vaccine : 65+ (1 - PCV) Pneumococcal Vaccine: 65+ (1 - PCV) [facility] Start: 2013 Pneumococcal Vaccine : 65+ (1 of 1 - PCV) Pneumococcal Vaccine: 65+ (1 of 1 - PCV) [facility] Start: 2013 Screening for osteoporosis Bone Dens ity Screening [facility] Start: 2008 RSV Vaccine (1 - 1-d ose 60+ series) RSV Vaccine (1 - 1-dose 60+ series) [facility] Start: 1998 Shingrix Vaccine (1 of 2) Abdi grix Vaccine (1 of 2) [facility] Start: 1993 Cologuard (FIT-DNA) Cologuard (FIT-D NA) [facility] Start: [address] Colonography [facility] Start: 1993 Diabetes Screening Diabetes Screenin g [facility] Start: 1993 Fecal Occult Blood Fecal Occult Bloo d [facility] Start: 1993 Lipid 1996 panel - S theresa or Plasma Lipid Screening [facility] Start: 1993 Lipid panel Lipid Screening [facility] Start: 1993 Screening for malign ant neoplasm of colon [facility] Start: 1993 [facility]oidoscopy [facility] Start: 1967 Pneumococcal Vaccine : 65+ Years (1 of 2 - PCV) Pneumococcal Vaccine: 65+ Years (1 of 2 - PCV) [facility] Start: 1966 Annual PCP Team Consumer Insight Analyst luis Disease Visit Annual PCP Team Chronic Disease Visit [facility] Start: 1966 BP Controlled (<130/80) BP Controlle d (<130/80) [facility] Start: 1966 Depression Screening Depression Scre ening [facility] Start: 1966 Hepatitis C Screening Hepatitis C [facility] Start: 1966 Hepatitis C screening Hepatitis C [facility] Start: 1954 Pneumococcal Vaccine : 65+ Years (1 - PCV) Pneumococcal Vaccine: 65+ Years (1 - PCV) [facility] Start: 1954 Pneumococcal Vaccine : 65+ Years (1 of 2 - PCV) Pneumococcal Vaccine: 65+ Years (1 of 2 - PCV) [facility] Start: 1948 Covid-19 Vaccine (#1) Covid-19 Vacci ne (#1) [facility] Start: 1948 Screening for malign ant neoplasm of colon [facility] Cystourethroscopy CYSTO.PANENDO Procedures Routine Feeling of incomplete bladder emptying Stricture of female urethra, unspecified stricture type Ordered: 09/26/2023 [facility] Work Phone: Comment on above: Ordered: 09/26/2023 Dilat female urethra w/suppository&/instlj ini URETHRAL DILATION(FEMALE) Procedures Routine Stricture of female urethra, unspecified stricture type Feeling of incomplete bladder emptying Ordered: 05/07/2024 [facility] Work Phone: Comment on above: Ordered: 05/07/2024 [facility] Immunizations Immunization Date Immunization Notes Care [...] influenza virus vaccine, unspecified formulation Johan MARTINEZ [facility] Payers Date Payer Category Payer [facility] BCBS [id number] 2016 Unknown [id number] 2016 Unknown [id number] 2013 Medicare [id number] 2013 Medicare [id number] 1948 Unknown [id number] 2.840.1.717340.3.579. 2. 1948 Unknown [id number] 2.16840.1.659311.3.579. 2. 1948 Unknown [id number] 2.16.840.1.426651.3.579. 2. 1948 Unknown [id number] 2.16840.1.081718.3.579. 2.72 1948 Unknown [id number] 2.16.840.1.135698.3.579. 2.72 1948 Unknown [id number] 2.16840.1.184193.3.579. 2.727 1948 Unknown [id number] 2.16840.1.839076.3.579. 2. 1948 Unknown [id number] 2.16.840.1.287451.3.579. 2.72 1948 Unknown [id number] 2.16840.1.192709.3.579. 2. 1948 Unknown [id number] 2.16840.1.699387.3.579. 2. 1948 Unknown [id number] 2.840.1.549837.3.579. 2. 1948 Unknown [id number] 2.840.1.691720.3.579. 2. 1948 Unknown [id number] 2.840.1.141567.3.579. 2. 1948 Unknown [id number] 2.840.1.171033.3.579. 2.1258 1948 Unknown [id number] 2.840.1.095406.3.579. 2.1258 1948 Unknown [id number] 2.840.1.169800.3.579. 2.1258 1948 Unknown [id number] 2.840.1.045850.3.579. 2.1258 1948 Unknown [id number] 2.840.1.288840.3.579. 2.125 1948 Unknown [id number] 2.16840.1.160366.3.579. 2.1258 1948 Unknown [id number] 2.840.1.319040.3.579. 2.1258 1948 Unknown [id number] 2.840.1.775317.3.579. 2.1259 1948 Unknown [id number] 2.16.840.1.179387.3.579. 2.1259 1948 Unknown [id number] 2.16.840.1.196416.3.579. 2.1259 Social History Date Type Detail Facility Start: 02-23-2021 End: 04-12-2023 Tobacco smoking status Ex-smoker (finding) [facility] Comment on above: Denies Start: 07-08-2020 End: 11-25-2024 Sex Assigned At Female [facility] Tobacco smoking status Never [facility] Comment on above: Denies History of tobacco use Current smoker [facility] Start: 10-24-2017 End: 04-12-2023 Tobacco use and exposure Smokeless tobacco non-user [facility] Start: 10-24-2017 Alcohol intake Current drinke r of alcohol (finding) [facility] Start: 07-08-2020 End: 11-25-2024 History of Social function [facility] Start: 09-26-2012 End: 08-23-2023 Tobacco Comment Quit 1996. social smoker mostly [facility] Start: 1948 Sex Assigned At Not on file [facility] History of tobacco use Cigarette Smoker [facility] Start: 09-12-2023 End: 04-07-2025 Alcohol intake Ex-drinker (finding) [facility] How [...] [Reported] [facility] 11-22-2023 Functional Status N/A [facility] 10-05-2023 Functional Status N/A [facility] 09-17-2023 Functional Status N/A [facility] 09-12-2023 Functional Status N/A [facility] 07-21-2023 Functional Status No [facility] 07-20-2023 Functional Status No [facility] 07-07-2023 Functional Status N/A [facility] 07-03-2023 Functional Status N/A [facility] 07-02-2023 Functional Status [facility] 06-30-2023 Functional Status N/A [facility] 04-26-2023 Functional Status N/A [facility] 04-04-2023 Functional Status N/A [facility] 01-28-2023 Functional Status N/A [facility] 10-19-2022 Functional Status N/A [facility] 10-03-2022 Functional Status N/A [facility] 09-01-2022 Functional Status No [facility] 06-13-2022 Functional Status No [facility] 03-03-2022 Functional Status N/A [facility] 02-15-2022 Functional Status N/A [facility] Clinical Notes 12-24-2021 to 04-07-2025 Hannah Brian MD - 04/07/2025 1:40 PM Naveen Brian MD - 01/22/2025 2:00 PM EDTTelephone Encounter - Rickie Aviles NP - 01/13/2025 11:14 AM EDTPatient Instructions Note Date & Type Note Facility 04-07-2025 History of Present illness Narrative Images from the original note were not included. Subjective Patient ID: Harjit Asencio is a 75 y.o. female who [...] Blood pressure 128/62, pulse 68, temperature 98.2 F, temperature source Temporal, height 5' 3 , weight 133 lb 3.2 oz, SpO2 99%. Body mass index is 23.6 kg/m . Physical Exam General: alert & oriented, NAD Head: NC/AT Oral Cavity: MMM Skin: warm, dry Heart: RRR, systolic murmur, S1S2 nml Lungs: CTA b/l Abdomen: soft, ND/NT, BS wnl Musculoskeletal: normal gait Extremities: no clubbing, cyanosis or edema Neurological: nonfocal Psych: mood/affect full range Assessment/Plan Harjit was seen today for immunizations and uti. [...] - as above documented in this encounter [facility] 03-31-2025 Note [facility] Subjective Harjit Asencio is a 75 y.o. year old female patient being seen for 2 month follow up. Patient states she is feeling pretty good. Patients states going upstairs and elevations wear her out, makes her SOB. Patient states she is having problems with the blood thinner, patient states she is having lots of blood in her urine. Patient states she had [...] insomnia Urethral stricture Urinary frequency Urinary urgency care home 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 Paroxysmal atrial fibrillation [...] At her recent visit with cardiology at [facility] on 09/26/2023 valsartan was stopped and low-dose lisinopril 5 mg once daily was added. The plan was to add Jardiance. There is note of her to being evaluated by CT surgery Dr. Sorto regarding candidacy for cardiac surgery and she was deemed high risk. She was also evaluated at [facility] cardiothoracic surgery. Initial workup for her mitral valve disease was started. Spironolactone was changed to half tablet twice a day instead of 1 tablet once a day. She was also recommended to start taking digoxin at night instead of the morning. At visit with ok on 10/16/2023 I increased her carvedilol to 6.25 mg twice daily. I asked for a cardiopulmonary excise test. After visit with me on 10/30/2023 I added Jardiance 10 mg daily to optimize GDMT for systolic heart failure. I also started her on amiodarone to attempt rhythm control. Following that she stopped both medications due to side effects. After visit with ok on 12/01/2023 I referred her to Patty Yao for consideration of further management of her atrial fibrillation to include A-fib ablation. Dr. Patty Yao decided to proceed with placement of [...] off hematuria on the Eliquis. She has under (more content not included)... [facility] 02-10-2025 Note [facility] Subjective Harjit Asencio is a 74 y.o. year old female patient being seen for 30 day s/p MitraClip. Had echo 02/07/2025. C/o hematuria. She was seen in [facility] ED on 01/30 and said she was [...] insomnia Urethral stricture Urinary frequency Urinary urgency care home 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 Paroxysmal atrial fibrillation [...] At her recent visit with cardiology at [facility] on 09/26/2023 valsartan was stopped and low-dose lisinopril 5 mg once daily was added. The plan was to add Jardiance. There is note of her to being evaluated by CT surgery Dr. Sorto regarding candidacy for cardiac surgery and she was deemed high risk. She was also evaluated at [facility] cardiothoracic surgery. Initial workup for [...] on 12/01/2023 I referred her to Patty Yao for consideration of further management of her atrial fibrillation to include A-fib ablation. Dr. Patty Yao decided to proceed with placement of [...] Patient Position: S (more content not included)... [facility] 01-23-2025 Note Patient is here toda y [...] a UTI. Review of Systems Constitutional: Negative. [facility] 01-23-2025 Note Cardiovascular Medic [facility] SUBJECTIVE Chief Complaint Patient presents with Valve Disorder Atrial Fibrillation Harjit Asencio is a 74 y.o. female here [...] insomnia Urethral stricture Urinary frequency Urinary urgency care home 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 Paroxysmal atrial fibrillation [...] 45 tablet, Rfl: (more content not included)... [facility] 01-22-2025 History of Present illness Narrative Images from the original note were not included. Patient: Harjit Asencio : 1950 PCP: Hannah Brian MD Harjit Asencio is a 74 y.o. female presenting today for follow-up after being seen in ED. The main problem requiring evaluation was palpitations. The discharge summary and/or Transitional Care Management documentation was reviewed. Medication reconciliation was performed as indicated via the Cyrus as Reviewed timestamp. Flowsheet Row Patient Outreach from 01/20/2025 in [facility] [employer] [facility] with Loida Nathan LPN Hospital Information [...] Neurological: nonfocal Psych: mood/affect full range Assessment/Plan Harjit was seen today for er follow-up. Diagnoses and all orders for this visit: Atrial fibrillation, persistent (HCC) (CMS/HCC) (Primary) care home 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 Mitral valve regurgitation due to cardiomyopathy (HCC) (CMS/HCC) Anxiety Reviewed hospital and ED course with pt Discussed sx tx, side effects of meds and concerning sx to monitor for. No changes in meds at this time Encouraged continued follow up with specialists Follow up if symptoms worsen or fail to improve. documented in this encounter [facility] 01-14-2025 Note Patient: Harjit Asencio Procedure Summary Date: 01/14/25 Room / Location: [facility] / [facility] (Cath) Anesthesia Start: 830 Anesthesia Stop: 1215 Procedure: Transcatheter mitral valve repair Diagnosis: Nonrheumatic mitral valve regurgitation (s/p successful ANA of the mitral valve using XTW MitraClip.) Providers: Rafael Robins MD Responsible Provider: Lobo Machado MD [...] no known notable events for this encounter. [facility] 01-14-2025 Note Patient intubated un bart observation by anesthesia [facility] 01-14-2025 Note Patient: Harjit Asencio Procedure Information Anesthesia Start Date/Time: 01/14/25830 Procedure: Transcatheter mitral valve repair - case for general anesthesia approved by Dr Callejas, NPCR Location: [facility] / [facility] (Cath) Providers: Rafael Robins MD Relevant Problems Cardio (+) Atherosclerosis of aorta (+) Atrial fibrillation, persistent (CMS/HCC) (+) Non-rheumatic mitral regurgitation (+) Nonrheumatic mitral valve regurgitation (+) Paroxysmal atrial fibrillation (CMS/HCC) (+) Primary hypertension (+) Severe mitral regurgitation GI (+) Acid reflux /Renal (+) Renal lesion Past Medical History: Diagnosis Date Abnormal ECG Adjustment disorder with mixed anxiety and depressed mood Afib ([facility]) Anxiety Arrhythmia Atherosclerosis of aorta Atrial fibrillation ([facility]/HCC) CHF (congestive heart failure) ([facility]/HCC) Chronic fatigue syndrome GERD (gastroesophageal reflux disease) Heart murmur Heart valve disease Hypertension Hypothyroidism Intestinal obstruction ([facility]/HCC) Non-rheumatic mitral regurgitation Nonischemic cardiomyopathy ([facility]) Nonrheumatic tricuspid valve regurgitation Panic attack Presence [...] with attending and resident. Additional Equipment Requests [facility] 01-14-2025 Note Arterial Line: Date/Time: 01/14/2025 9:04 [...] complications. Additional notes: [place] Staffing Performed: resident/SENIOR INTERACTIVE DEVELOPER/CAA Anesthesiologist: Lobo Machado MD Resident/SENIOR INTERACTIVE DEVELOPER: Margaret Briceno MD Performed by: Micheline Mendoza MD Authorized by: Lobo Machado MD [facility] 01-14-2025 Note Airway Date/Time: 01/14/2025 8:52 AM Urgency: elective Airway not difficult General Information and Staff Patient location during procedure: [place] Anesthesiologist: Lboo Machado MD Resident/SENIOR INTERACTIVE DEVELOPER/CAA: Margaret Briceno MD Performed: resident/SENIOR INTERACTIVE DEVELOPER/CAA Indications and Patient Condition Indications for airway [...] 1 Number of other approaches attempted: 0 [facility] 01-13-2025 Telephone encounter Note Rx sent, HR OOO. OARRS appropriate. [facility] 01-13-2025 Miscellaneous Notes Rx sent, HR OOO. OARRS appropriate. HR OOO Pt needs refill on Lorazapam sent to [email or web address]. documented in this encounter [facility] 01-13-2025 Telephone encounter Note HR OOO [facility] 01-13-2025 Telephone encounter Note Pt needs refill on Lorazapam sent to [email or web address] 01-07-2025 History of Present illness Narrative Images from the original note were not included. Subjective Patient ID: Harjit Asencio is a 74 y.o. female who [...] Neurological: nonfocal Psych: mood/affect full range Assessment/Plan Harjit was seen today for follow-up. Diagnoses and all orders for this visit: Atrial fibrillation, persistent (HCC) (CMS/HCC) (Primary) Stable, continue to monitor. No change in regimen. Continue to follow w/ specialists care home 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 - Continue to monitor for abnormal bruising or bleeding Primary hypertension (CMS/HCC) Stable, continue to monitor. No change in regimen. Anxiety Stable, continue to monitor. No change in regimen. Panic attack (CMS/HCC) Stable, continue to monitor. No change in regimen. documented in this encounter [facility] 12-25-2024 Note I have reviewed this patient's medical record, cardiac imaging. she has severe secondary (functional) mitral regurgitation, chronic heart failure with reduced ejection fraction and has persistent symptoms NYHA class III despite maximally tolerated guideline-directed medical therapy. I think that she is a good candidate for and would benefit from transcatheter syuz-rb-pbcs repair. 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 The plan was to add Jardiance. There is note of her to being evaluated by CT surgery Dr. Sorto regarding candidacy for cardiac surgery and she was deemed high risk. She was also evaluated at [facility] cardiothoracic surgery. Initial workup for [...] on 12/01/2023 I referred her to Patty Yao for consideration of further management of her atrial fibrillation to include A-fib ablation. Dr. Patty Yao decided to proceed with placement of [...] and are negativ (more content not included)... [facility] 12-17-2024 History of Present illness Narrative Images from the original note were not included. Subjective Patient ID: Harjit Asencio is a 74 y.o. female who [...] Neurological: nonfocal Psych: mood/affect full range Assessment/Plan Harjit was seen today for right flank pain, [...] to monitor for. documented in this encounter [facility] 11-25-2024 History of Present illness Narrative Images from the original note were not included. Subjective Patient ID: Harjit Asencio is a 74 y.o. female who presents for No chief complaint on file.. HPI Pt here for follow up. States she has not been feeling well x > 7 days with productive cough, chest congestion, nasal congestion, rhinorrhea and exertional SOB. Denies fever. Recently took a zpak that helped some, but continues to have residual sx. Also c/o dawson leg pain. States she fell over the [...] meds and concerning sx to monitor for. 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 No change in regimen. Continue to follow w/ specialists Primary hypertension (CMS/HCC) Stable, continue to monitor. No change in regimen. Continue to follow w/ specialists documented in this encounter [facility] 11-18-2024 History of Present illness Narrative Images from the original note were not included. Subjective Patient ID: Harjit Asencio is a 74 y.o. 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 No change in regimen. Continue to follow w/ cardiology Primary hypertension (CMS/HCC) Stable, continue to monitor. No change in regimen. Continue to follow w/ cardiology documented in this encounter [facility] 10-22-2024 Note [place] Electrophysiology Consult Note [place] [facility] Reason for visit: Afib+ CMP 10/22/24 Patient underwent a PANTRY ATTENDANT-P implant on 02/28/2024 when a PANTRY ATTENDANT-P was placed in a submuscular fashion with [...] she has done very well since her PANTRY ATTENDANT. Device check performed on 07/30/2024 shows patient being BiV paced 98% of the time 02/22/24 Pt here to discuss about PANTRY ATTENDANT-P Prior HPI: Harjit Asencio is a 74 y.o. year [...] MR and subsequently had a visit with [facility] where evaluation was being done for surgical correction of mitral valve but was noted to have high risk and hence deferred. She also had an evaluation for the same at [place] surgery and thereafter had seen in [...] Tobacco Use: Medium Risk (10/08/2024) Received from [facility] Patient History Smoking Tobacco Use: Former Smokeless Tobacco Use: Never Passive Exposure: Never Alcohol Use: Not At Risk (08/05/2024) Received from [facility] [email or web address] AUDIT-C Frequency of Alcohol Consumption: Never Average Number of Drinks: Patient does not drink Frequency of Binge Drinking: Never Financial Resource Strain: Not on file Food Insecurity: Not on file Transportation Needs: Not on file Physical Activity: Not on file Stress: Not on file Social Connections: Not on file Intimate Partner Violence: Unknown (10/05/2023) [place] Safety & Environment Fear of Current or Ex-Partner: Not on file Emotionally Abused: Not on file Physically Abused: Not on file Sexually Abused: Not on file Physically or Sexually Abused: Not on file Depression: Not at risk (08/05/2024) Received from [facility] PHQ-2 Patient Health Questionnaire-2 Score: 0 Housing [...] 3 LORazepam (Ativan) (more content not included)... [facility] 10-08-2024 History of Present illness Narrative Associated Problem(s): Panic attack (CMS/HCC) Stable Patient will return in [address] Brian to refill meds Encouraged watching diet and restart exercising Images from the original note were not included. Harjit Asencio is a 74 y.o. female presents [...] from the original note were not included. Harjit Asencio is a 74 y.o. female presents with chief complaint of Follow-up HPI: History of Present Illness The patient is a 74-year-old female who presents for evaluation of anxiety, weight gain, and adverse effects from carvedilol. She reports an exacerbation of her symptoms following an increase in her carvedilol dosage, which was prescribed by her bracelet and brooch maker. She has been experiencing shortness of breath, [...] and plans to discuss this with her bracelet and brooch maker during her upcoming appointment. She has been [...] and plans to discuss this with her bracelet and brooch maker during her upcoming appointment. She has been [...] and plans to discuss this with her bracelet and brooch maker during her upcoming appointment. She has been [...] dosage of carvedilol was increased by her bracelet and brooch maker. Symptoms include shortness of breath, irregular heart rhythm, and night terrors. Her blood pressure is currently stable. She is advised to discuss these symptoms with her bracelet and brooch maker during her upcoming appointment next month. 2. [...] for this patient. documented in this encounter [facility] 09-20-2024 Telephone encounter Note Pt needs a refill on Ativan Please send to [facility] 09-20-2024 Miscellaneous Notes Pt needs a refill on Ativan [facility] documented in this encounter [facility] 08-12-2024 History of Present illness Narrative Harjit Asencio is a 74 y.o. female presents [...] Negative - 160(16) ++++ mg/dL Negative Specific Hanna, UA 1 - 1.03 1.005 Blood, UA [...] persistent (HCC) (CMS/HCC) Continue current medication regimen. care home 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 Continue current medication [...] substitutions have occurred. documented in this encounter [facility] 08-05-2024 History of Present illness Narrative Images from the original note were not included. Stephan Boo, Obstetrics and Gynecology Harjit Asencio 1950 08/05/24 [id number] Yearly Wellness Exam Chief Complaint Patient presents with Gynecologic Exam Medicare off year. LMP: MIR BS 1983 HRT: None Last pap 07-24-23 neg. [place]05[place] [facility] [place] 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 Stephan Boo. Signature Martita Newsome MA Date 08/05/24 . Time 3:32 PM . The documentation recorded by the scribe accurately reflects the service(s) I personally performed and the decisions I made. Signature Laura Boo D.O. Date 08/05/24 Time 5:00PM. documented in this encounter [facility] 07-02-2024 Note Cardiovascular Medic [facility] SUBJECTIVE Chief Complaint Patient presents with Atrial Fibrillation Palpitations Congestive Heart Failure Valve Disorder Harjit Asencio is a 74 y.o. female here [...] insomnia Urethral stricture Urinary frequency Urinary urgency care home 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 Paroxysmal atrial fibrillation (CMS/HCC) Presence of biventricular automatic cardioverter/defibrillator (AICD) Past Medical History: Diagnosis Date Abnormal ECG Arrhythmia Atrial fibrillation (CMS/HCC) CHF (congestive heart failure) (CMS/HCC) Heart murmur Heart valve disease Hypertension Nonischemic cardiomyopathy (CMS/HCC) Family History Problem Relation Name Age of [...] and regular rhythm. (more content not included)... [facility] 07-02-2024 Note Patient here for fol [...] All other systems reviewed and are negative. [facility] 07-01-2024 History of Present illness Narrative Images from the original note were not included. Harjit Asencio is a 74 y.o. female presents [...] eat. She has an appointment with a transport tank technician tomorrow. She has been taking spironolactone, [...] research. She will follow up with the transport tank technician and nurse practitioner tomorrow to check [...] for this patient. documented in this encounter [facility] 06-27-2024 Note [facility] 06-27-2024 History of Present illness Narrative Harjit Asencio is a 74 year old [...] She is here today for cystoscopy CYSTOSCOPY MAntonio'S 30 DAY PHYSICAL EXAM Primary Indication: Bladder [...] for Female Urology and Reconstructive Pelvic Surgery/Urology [facility] [place] [facility] documented in this encounter [facility] 06-27-2024 Nurse Note PROCEDURE NURSE ASSESSMENT Patient [...] patient verbalizes understanding: yes Clarice Gardiner MA [facility] 06-27-2024 Instructions Clarice Gardiner MA - 06/27/2024 10:59 AM EST [facility] DR. RAPHAEL GOLDSMITH AFTER YOUR [...] office: Dr. Raphael Goldsmith M.D., Office PH#: [phone] After 5 pm and on weekends: Call [phone] and ask for the urologist stationary engineer. The doctor will need to know that you have had a cystoscopy and what symptoms you are having. documented in this encounter [facility] 06-27-2024 Nurse Note PROCEDURE NURSE ASSESSMENT Patient [...] with drinking extra fluids. Please call the [place] office at [phone], Monday-Monday, 8 am - 5 pm, with any questions you may have. Please ask to be transferred to the Urology nurses in the back office area. If you call after 5 PM or on the weekends, please call [phone], ask for the Urologist stationary engineer. Thank You, Your Urology Team documented in this encounter [facility] 06-27-2024 Nurse Note POST INSTRUCTIONS Cystoscopy Procedure [...] with drinking extra fluids. Please call the [place] office at [phone], Monday-Monday, 8 am - 5 pm, with any questions you may have. Please ask to be transferred to the Urology nurses in the back office area. If you call after 5 PM or on the weekends, please call [phone], ask for the Urologist stationary engineer. Thank You, Your Urology Team [facility] 06-10-2024 Note AV NODE ABLATION PRO CEDURE REPORT DATE OF PROCEDURE: 06/10/2024 PERFORMING PHYSICIAN: Dr. Patty Yao CONSENT: Patient NAME OF THE PROCEDURE: [...] MR and subsequently had a visit with [facility] where evaluation was being done for surgical correction of mitral valve but was noted to have high risk and hence deferred. She also had an evaluation for the same at [place] surgery and thereafter had seen in [...] poor candidate for Afib ablation, she underwent PANTRY ATTENDANT-P on 02/28/24. She is here for AVN [...] clinic in 1 month. 3. Continue anticoagulation. Patty Yao MD Cardiac Electrophysiology. [facility] 06-10-2024 Note Patient: Harjit Asencio Procedure Information Date/Time: 06/10/24 1200 Procedure: AV node ablation - PC APPROVED Location: [facility] EP / [facility] (Cath) Providers: Patty Yao MD Clinical information reviewed: Allergies Meds OB Status Physical Exam Airway Mallampati: II TM distance: >3 FB Cardiovascular Dental Pulmonary Abdominal Anesthesia Plan ASA 3 CSE Anesthetic plan and risks discussed with patient. Use of blood products discussed with patient who. Additional Equipment Requests [facility] 05-28-2024 Note case 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 The plan was to add Jardiance. There is note of her to being evaluated by CT surgery Dr. Sorto regarding candidacy for cardiac surgery and she was deemed high risk. She was also evaluated at [facility] cardiothoracic surgery. Initial workup for [...] on 12/01/2023 I referred her to Patty Yao for consideration of further management of her atrial fibrillation to include A-fib ablation. Dr. Patty Yao decided to proceed with placement of [...] irregularly irregular. Pulse (more content not included)... [facility] 05-07-2024 Note [facility] 05-07-2024 History of Present illness Narrative [facility] FOR FEMALE [...] repeat urethral dilation in 2-3 months at [place] in office -Plan to assess for atrophic vaginitis at time of urethral dilation due to patient concern for irritation around upper thigh/vagina Erika Ho MD I have personally performed a face to face diagnostic evaluation on this patient. My findings are as above. Raphael Goldsmith MD plan urethral dil per req documented in this encounter [facility] 05-07-2024 Nurse Note Post Void Residual done on patient with 0 cc residual volume remaining. notified. CARISSA Garvey [facility] 05-07-2024 Nurse Note Post Void Residual done on patient with 0 cc residual volume remaining. notified. CARISSA Garvey documented in this encounter [facility] 12-22-2023 Telephone encounter Note The following approved medication requests have been transmitted electronically. Requested Prescriptions Signed Prescriptions Disp Refills lisinopril (ZESTRIL) 10 mg tablet 45 tablet 0 Sig: take 1/2 tablet by mouth once daily Authorizing Provider: Benitez SAMUELS pantoprazole DR (PROTONIX) 40 mg tablet 90 tablet 0 Sig: take 1 tablet by mouth every day Authorizing Provider: Benitez SAMUELS APRN.MEDICAL ASSOCIATE [facility] 12-22-2023 Miscellaneous Notes The following approved medication requests have been transmitted electronically. Requested Prescriptions Signed Prescriptions Disp Refills lisinopril (ZESTRIL) 10 mg tablet 45 tablet 0 Sig: take 1/2 tablet by mouth once daily Authorizing Provider: Benitez SAMUELS pantoprwm DR (PROTONIX) 40 mg tablet 90 tablet 0 Sig: take 1 tablet by mouth every day Authorizing Provider: Benitez SAMUELS APRN.MEDICAL ASSOCIATE documented in this encounter [facility] 11-22-2023 Hospital Discharge instructions Patient Education 11/22/2023 20:40:30 Constipation, Adult, Kiot-zb-Vucy Constipation, Adult Constipation is when a person [...] high in fat and sugar, such as: ?Croatian fries. ?Hamburgers. ?Cookies. ?Candy. ?Soda. Drink enough fluid to keep your pee (urine) pale yellow. General instructions Exercise regularly or as told by your doctor. Try to do 150 minutes of exercise each week. Go to the restroom when you feel like you need to poop. Do not hold it in. Take eibr-ngv-zgiviur and prescription medicines only as told by [...] keep your pee (urine) pale yellow. Take pkdq-ogi-kzbimfs and prescription medicines only as told by your doctor. These include any fiber supplements. This information is not intended to replace advice given to you by your health care provider. Make sure you discuss any questions you have with your health care provider. Document Revised: 06/17/2020 Document Reviewed: 06/17/2020 [employer] Patient Education 2022 [employer]. Follow Up Care 11/22/2023 16:18:30 With:Hannah Brian MD Address: [address] [place] [address]- When:11/25/2023 [facility] 10-16-2023 Miscellaneous Notes October 16, 2023 Patient Contact Number: [phone] Patient last seen within the last year: [...] Yes Gloria Mendes documented in this encounter [facility] 10-16-2023 Note [facility] 10-16-2023 History of Present illness Narrative [...] due to it helping the symptoms Pedro'Benitez [facility] NOTE / UNIVERSAL PROTOCOL / SAFETY CHECKLIST [...] Time: 11:18 AM documented in this encounter [facility] 10-16-2023 Note [facility] 10-16-2023 Nurse Note Actual procedure/procedure scheduled: Yes Performing provider/scheduled provider: Yes Patient was roomed in: Q9- 07 Chief Radiation Therapist offered:Patient declines Patient arrived in the room [...] Education Session: None Instruction Provided To: Patient Stylist Assistant Present: no Discipline: Nursing Learning Topic: SURVIVAL SKILLS: Symptom Management Patient Evaluation: Verbalizes understanding: Yes Supplemental Material Given: Written Material Instructed By DAWSON Farr In Department Urology . documented in this encounter [facility] 10-05-2023 Hospital Discharge instructions Patient Education 10/05/2023 21:56:35 Constipation, Adult, Jnqf-cs-Xtwc Constipation, Adult Constipation is when a person [...] high in fat and sugar, such as: ?Croatian fries. ?Hamburgers. ?Cookies. ?Candy. ?Soda. Drink enough fluid to keep your pee (urine) pale yellow. General instructions Exercise regularly or as told by your doctor. Try to do 150 minutes of exercise each week. Go to the restroom when you feel like you need to poop. Do not hold it in. Take rsdf-ley-qghgjfx and prescription medicines only as told by [...] keep your pee (urine) pale yellow. Take cnfq-avp-gjckciq and prescription medicines only as told by your doctor. These include any fiber supplements. This information is not intended to replace advice given to you by your health care provider. Make sure you discuss any questions you have with your health care provider. Document Revised: 06/17/2020 Document Reviewed: 06/17/2020 [employer] Patient Education 2022 [employer]. 10/05/2023 21:56:35 Gastroesophageal Reflux Disease, Adult, Nfzu-oq-Vsrw Gastroesophageal Reflux Disease, Adult Gastroesophageal reflux (ZUNILDA) [...] powder, vinegar, hot sauces, and BBQ sauce. ?Toole fruit juices and citrus fruits, such as oranges, ronald, and limes. ?Tomato-based foods. These include red sauce, chili, salsa, and pizza with red sauce. ?Fried and fatty foods. These include donuts, citizen of [place] fries, potato chips, and high-fat dressings. ?High-fat [...] to any changes in your symptoms. Take gsnc-gjg-yyhussp and prescription medicines only as told by [...] provider. Document Revised: 02/08/2021 Document Reviewed: 02/08/2021 [employer] Patient Education 2022 [employer]. 10/05/2023 21:56:35 Abdominal Pain, Adult, Zvyl-al-Yhbx Abdominal Pain, Adult Many things can cause belly (abdominal) pain. Most times, belly pain is not dangerous. Many cases of belly pain can be watched and treated at home. Sometimes, though, belly pain is serious. Your doctor will try to find the cause of your belly pain. Follow these instructions at home: Medicines Take tqfh-zrs-efhgkvx and prescription medicines only as told by [...] your belly pain for any changes. Take pfbs-tig-fzbkots and prescription medicines only as told by [...] provider. Document Revised: 12/09/2019 Document Reviewed: 12/09/2019 [employer] Patient Education 2022 [employer]. Follow Up Care 10/05/2023 17:56:41 With:Johan HENRIQUEZ Address: [address] [place] [phone] Business (1) When:10/08/2023 20:57:11 With:Peggy Nazario Address: [address] [place] [address]- Business (1) When:Within 3 Day(s) [facility] 10-05-2023 Evaluation + Plan note Extrac [...] day(s), # 28 tab(s), Refills(s) 0, Pharmacy: [facility], 165, cm, 10/05/23 18:07:00 EST, Height/Length Dosing, 50.3, kg, 10/05/23 18:07:00 EST, Weight Dosing lidocaine topical, 200 mg, 10 mL, Soln-Oral, Oral, Once, Stop date 10/05/23 20:48:00 EST, STAT, Start date 10/05/23 20:48:00 EST ECG 12 Lead Adult Future Appointments Appointment Date:01/24/2024 02:30:00 PM Scheduled Provider:Micheline BROOKS MD Location:[facility] Appointment Type:URO Office Visit Future Scheduled Tests Laboratory* Basic Metabolic Panel 07/12/23 * Digoxin Level 07/12/23 [facility]02-19-2024 Miscellaneous Notes* Telephone Encounter - Gloria Mendes - 10/02/2023 9:35 AM EST October 02, 2023 Patient Contact Number: [phone] Patient last seen within the last year: Yes Date of last office visit: 09/26/2023 Reason For Call: Test Results; pt requesting to go over 09/26 labs Physician: Alea Harley MD Patient was informed that non-urgent calls may be returned within the next three business days. Yes Gloria Mendes [facility] Note* Chrissy Roberts OCCA - 09/26/2023 2:28 PM EST Post Void Residual done on patient with 45 cc residual volume remaining. notified. CARISSA Ferrell [facility] History of Present illness Narrative* Raphael Goldsmith MD - 09/26/2023 2:15 PM EST [facility] FOR [facility]EMALE [...] Medicine and Reconstructive Surgery [facility] Instructions* Patient Instructions* Ana Rivas APRN.CNP - [...] with labs and EKG [facility] History of Present illness Narrative* Ana Rivas APRN.CNP - 09/26/2023 8:51 AM EST Images from the original note were not included. [facility] [place] [facility] Department of Cardiovascular Medicine SECTION OF CLINICAL CARDIOLOGY OUTPATIENT VISIT DATE September 26, 2023 OUTPATIENT VISIT TYPE ESTABLISHED PRIMARY CARE PHYSICIAN: Peggy Nazario MD [address] [place] [address] REFERRING PHYSICIAN: Dr. Alea Harley [id number] [facility] [id number] CHIEF COMPLAINT: Established Patient HISTORY OF PRESENT [...] was last evaluated in office by Dr. aHrley on 08/23/2023. Impression below for further reference: [...] The left atrial cavity is dilated. No AH thrombus. Peak emptying velocity varies from 15- [...] ECG Confirmed by fellow NANCY MCMAHON, ZIGGY ([id number]) on 09/04/2023 1:50:09 PM Confirmed by MD DEJUAN, PhD, [facility] ([id number]) on 09/11/2023 1:23:[address] Result Conclusion CTA CHEST (GATED) W IVCON Exam End: 08/23/2023 7:47 AM (Final result) Impression: IMPRESSION: Dilated left ventricle, biatrial enlargement. Mitral valve is noncalcified. Normal caliber thoracic aorta. Magician/Illusionist: PSCB Transcribe Date/Time: Aug 23 2023 11:20A [...] a plan of care. [facility] in [facility]24 Miscellaneous Notes* Telephone Encounter - Carmina Reyna RN - 09/21/2023 4:[address] Harley would like patient to come in and be seen to go over this in greater detail. Work on setting her up with an STRUCTURAL IRONWORKER and Dr. Harley would like to be in for the appointment. Next Monday. Carmina Reyna RN * Telephone Encounter - Gloria Mendes - 09/21/2023 3:33 PM EST September 21, 2023 Patient Contact Number: [phone] Patient last seen within the last year: [...] days. Yes Gloria Mendes [facility] History of Present illness Narrative* Farrukh Mcmahan [...] Flowsheet Row Patient Outreach from 09/18/2023 in [facility] with Loida Nathan LPN Discharge Information ED or Hospital Discharge? ED Patient has been contacted within 1 week of being seen in the ED Yes Discharge Date 09/17/23 Discharge Hospital [facility] [DX: ACid reflux, Medication reaction] Discharged [...] 1006 No follow-ups on file. * Lia Amador 09/18/2023 6:00 PM EST Harjit Asencio is a 73 y.o. female presents today for ER follow up. HPI: Pt here today for ER follow up. [place] [facility] [place] due [...] would like a referral to a new bracelet and brooch maker/surgeon. She states she has been told that [...] be referred to a cardiothoracic surgeon at [facility]. Discussed some risks of surgery. - Ambulatory referral to Cardiothoracic Surgery; Future Entered by _El_, acting as scribe for _Aravind_. Signature _Heath MCMAHON_ Date _09/18/2023_. The documentation recorded by the scribe accurately reflects the service(s) I personally performed and the decisions I made. documented in this encounterThree Rivers [id number] Evaluation + Plan note Extracted from: Title:ED [...] PM Scheduled Provider:Micheline BROOKS MD Location:[facility] Appointment Type:URO Office Visit Future Scheduled Tests Laboratory* Basic Metabolic Panel 07/12/23 * Digoxin Level 07/12/23 [facility]02-04-2024 Hospital Discharge instructions Patient Education 09/17/2023 [...] medicines that you are allergic to. Take tdop-iqg-tbtkwvk and prescription medicines only as told by your health care provider. If you were given medicines to treat your allergic reaction, do not drive until your health care provider tells you it is safe. If you have hives or a rash: ?Use an uybn-kyx-bswzmdr antihistamine as told by your health care [...] provider. Document Revised: 01/10/2022 Document Reviewed: 01/10/2022 [employer] Patient Education 2022 [employer]. 09/17/2023 06:16:25 Heartburn Heartburn Heartburn is a [...] powder, vinegar, hot sauces, and barbecue sauce. ?Toole fruit juices and citrus fruits, such as oranges, ronald, and limes. ?Tomato-based foods, such as red sauce, chili, salsa, and pizza with red sauce. ?Fried and fatty foods, such as donuts, citizen of [place] fries, potato chips, and high-fat dressings. ?High-fat [...] ask your health care provider. Medicines Take zejc-gyc-enpshco and prescription medicines only as told by [...] told by your health care provider. Take alpn-fet-uxykngb and prescription medicines only as told by [...] provider. Document Revised: 02/03/2021 Document Reviewed: 02/03/2021 [employer] Patient Education 2022 [employer]. Follow Up Care 09/17/2023 04:56:21 With:Peggy Nazario Address: [address] [place] [phone]- Business (1) When:Within 3 Day(s) [facility]02-04-2024 Miscellaneous Notes* Telephone Encounter - Carmina Mcmahan APRN.MEDICAL ASSOCIATE - 09/17/2023 6:25 AM EST Patient reported that she went to the ED, said her blood pressure was up instead of down this time . I didn't sleep, I can't take that medicine, there's something that don't agree with me. She reiterates that she can't take that medication (valsartan) again. Carmina Mcmahan APRN.CNP [facility] [employer] 09/17/2023 6:29 AM documented in [facility] encounterK[facility]24 Miscellaneous Notes* Telephone Encounter - Carmina Mcmahan APRN.CNP - 09/17/2023 4:21 AM EST [facility] Contact Center Inbound Phone Encounter DATE of SERVICE: 09/17/2023 TIME of SERVICE: 4:21 AM Status: Urgent Service/Provider: Clinical Cardiology Alea Harley MD Reason for call: Medication Issue/Question Contact information: [phone] Resolution: Reinforced education and Sent to [employer] Comments: Patient calling after waking up with [...] to try. Carmina Mcmahan APRN.CNP [facility] [employer] Date of Resolution: 09/17/2023 Time of Resolution 4:21 AM documented in this encounterK[facility]24 Telephone encounter Note * Telephone Encounter - Rupal Lemus - 09/15/2023 1:24 PM EST Pt calls to check status of this, wants this done as quickly as possible, states that she will haveto cut pills in half to make it through the weekend and missed one last night. [facility] [id number] Miscellaneous Notes* Telephone Encounter - Rupal Allan - 09/15/2023 1:24 PM EST Pt calls [...] completely on monday documented in this encounterNOMS [id number] Telephone encounter Note* Telephone Encounter - Candis Amaro - 09/15/2023 9:49 AM EST Pt calls to ask [facility] Monday [facility] [id number] Telephone encounter Note* Telephone Encounter - Candis Amaro - 09/13/2023 11:25 AM EST Pt said she [id number] Telephone encounter Note* Telephone Encounter - Farrukh Mcmahan MA - 09/13/2023 11:06 AM EST [id number] Telephone encounter Note* Telephone Encounter - Candis Amaro - 09/13/2023 11:01 AM EST Pt calls for refill of lorazepam is almost out will be out completely on monday [facility] [id number] Evaluation + Plan noteExtracted from: Title:ED Note [...] Future Appointments Appointment Date:01/24/2024 02:30:00 PM Scheduled Provider:CECILIA MCMAHON, Micheline Morgan Location:[facility] Appointment Type:URO Office Visit Future Scheduled Tests Laboratory* Basic Metabolic Panel 07/12/23 * Digoxin Level 07/12/23 [facility]01-30-2024 Hospital Discharge instructions Patient Education 09/12/2023 [...] as meditation or yoga. General instructions Take dlyc-gnp-akbohpn and prescription medicines only as told by [...] provider. Document Revised: 05/20/2022 Document Reviewed: 05/20/2022 [employer] Patient Education 2022 [employer] 09/12/2023 06:47:40 Gastroesophageal Reflux Disease, Adult [...] powder, vinegar, hot sauces, and barbecue sauce. ?Toole fruit juices and citrus fruits, such as oranges, ronald, and limes. ?Tomato-based foods, such as red sauce, chili, salsa, and pizza with red sauce. ?Fried and fatty foods, such as donuts, citizen of [place] fries, potato chips, and high-fat dressings. ?High-fat [...] to any changes in your symptoms. Take rqer-crh-ebovzkn and prescription medicines only as told by [...] you have new or worsening symptoms. Take lecv-otg-lzoszid and prescription medicines only as told by [...] provider. Document Revised: 02/08/2021 Document Reviewed: 02/08/2021 [employer] Patient Education 2022 [employer]. Follow Up Care 09/12/2023 04:04:55 With:Peggy Nazario Address: [address] [place] [phone] Business (1) When:Within 3 Day(s) [facility] History of Past illness Narrative* Problem Noted Date Diagnosed Date Resolved Date Acute on chronic systolic co ngestive heart failure 08/26/2023 08/27/2023 documented as of this encounter (statuses as of 09/17/2023) [address]13-2024 History of Past illness Narrative* Problem Noted Date Diagnosed Date Resolved Date Acute on chronic systolic co ngestive heart failure 08/26/2023 08/27/2023 documented as of this encounter (statuses as of 09/21/2023) [address]13-2024 History of Past illness Narrative* Problem Noted Date Diagnosed Date Resolved Date Acute on chronic systolic co ngestive heart failure 08/26/2023 08/27/2023 documented as of this encounter (statuses as of 09/26/2023) [facility] of Past illness Narrative* Problem Noted Date Diagnosed Date Resolved Date Acute on chronic systolic co ngestive heart failure 08/26/2023 08/27/2023 documented as of this encounter (statuses as of 09/26/2023) [facility] History of Past illness Narrative* Problem Noted Date Diagnosed Date Resolved Date Acute on chronic systolic co ngestive heart failure 08/26/2023 08/27/2023 documented as of this encounter (statuses as of 09/29/2023) [facility] History of Past illness Narrative* Problem Noted Date Diagnosed Date Resolved Date Acute on chronic systolic co ngestive heart failure 08/26/2023 08/27/2023 documented as of this encounter (statuses as of 10/02/2023) [facility] History of Past illness Narrative* Problem Noted Date Diagnosed Date Resolved Date Acute on chronic systolic co ngestive heart failure 08/26/2023 08/27/2023 documented as of this encounter (statuses as of 10/16/2023) [address]13-2024 History of Past illness Narrative* Problem Noted Date Diagnosed Date Resolved Date Acute on chronic systolic co ngestive heart failure 08/26/2023 08/27/2023 documented as of this encounter (statuses as of 10/17/2023) [address]13-2024 History of Past illness Narrative* Problem Noted Date Diagnosed Date Resolved Date Acute on chronic systolic co ngestive heart failure 08/26/2023 08/27/2023 documented as of this encounter (statuses as of 10/20/2023) [facility]01-13-2024 NoteHNO ID: [id number] Author: NOTE, INTERFACE, ? Service: ? Author Type: ? Type: Progress Notes Filed: 08/26/2023 02:15 Note Text: Epic Scheduled Downtime: 08/26/2023 1:00:00 AM to 08/26/2023 2:04:22 [facility]23 NoteProcedure The risk/benefits of the procedure [...] Daily, Routine, Start date 07/04/23 9:00:00 EST, 237:59:00 EST digoxin, 125 microgram = 1 tab(s), [...] Education Routine Capillary Glucose POC Saline Lock InsertSt. John Of God HospitalComment on above:Result Comment: Electronically Signed By: MARTINEZ MCMAHON, Johan Ribeiro.zak\Date and Time Signed: 07/05/23 06:48 [id number] History of Present illness Narrative* Farrukh Mcmahan, JOSUE - 08/11/2023 8:45 AM EST Harjit Asencio is a 73 y.o. female presents today to follow up on anxiety. HPI: Pt here today for follow up on anxiety. Pt states yesterday she had a panic attack. She [place] [facility] [place] made her very upset and she had a panic attack. She felt like she couldn't catchher breath the rest of the day. Pt is currently on holter monitor. Pt has instructions from [facility] that she is confused about and would [...] Chronic fatigue syndrome Discussed. documented in this encounterThree Rivers [id number] Miscellaneous Notes* Telephone Encounter - Rebecca Fernandez - 07/24/2023 10:22 AM EST IN * Telephone Encounter - Katie Nicholson - 07/24/2023 10:08 AM EST Please register insurance Thank you! documented in this encounterK[facility]12-11-2023 Note [id number] [facility] 07-21-2023 Evaluation + Plan noteExtracted from: Title:Procedure Note Heart & Vascular Author:Johan GERMAN MD Date:07/21/23 Ordered: benzocaine/butamben/tetracaine topical, 3 spray(s), [place]-Top, Topical, q2min PRN Other (see comment), Routine, [...] Oxygen Therapy Saline Lock Insert Suctioning HAROON ([facility]) Vital Signs Future Appointments Appointment Date:01/24/2024 02:30:00 PM Scheduled Provider:Micheline BROOKS MD Location:[facility] Appointment Type:URO Office Visit Future Scheduled Tests Laboratory* Basic Metabolic Panel 07/12/23 * Digoxin Level 07/12/23 [facility]12-08-2023 Hospital Discharge instructions Patient Education 07/21/2023 08:44:29 CV - Post-Transesophageal Echocardiogram (Custom) [place], [place] POST-TRANSESOPHAGEAL ECHOCARDIOGRAM AFTER THE PROCEDURE: Diet: [...] appointment Seek Medical Care if: Notify your bracelet and brooch maker should you have any difficulty swallowing or coughing up blood. In the event you are unable to reach your bracelet and brooch maker, please call [facility] at [phone] and the acoustic sensor operator will assist you. Follow Up Care 07/20/2023 11:03:45 With:Johan HENRIQUEZ Address: [address] [place] [phone] Business (1) When: Unknown Comments:-After your appointment with [facility]12-08-2023 NoteProcedure The risk/benefits of the procedure [...] plan_ Assessment/Plan Ordered: benzocaine/butamben/tetracaine topical, 3 spray(s), [place]-Top, Topical, q2min PRN Other (see comment), Routine, [...] Oxygen Therapy Saline Lock Insert Suctioning HAROON ([facility]) Vital SignsSt. John Of God HospitalComment on above:Result Comment: Electronically Signed By: MARTINEZ MCMAHON, Johan Ribeiro.br\Date and Time Signed: 07/21/23 07:09 [id number] Evaluation + Plan note Future Appointments Appointment Date:07/21/2023 08:00:00 AM Scheduled Provider: [facility] ([facility] Appointment Date:07/21/2023 08:00:00 AM Scheduled Provider: [facility] Appointment Type:CV Echo (FT) Appointment Date:01/24/2024 02:30:00 PM Scheduled Provider:Micheline BROOKS MD Location:[facility] Appointment Type:URO Office Visit Future Scheduled Tests Laboratory* Basic Metabolic Panel 07/12/23 * Digoxin Level 07/12/23 Radiology* Echo Transesophageal 2D 07/21/23 [facility]11-29-2023 Evaluation + Plan note Future Scheduled Tests Laboratory* Basic Metabolic Panel 07/12/23 * Digoxin Level 07/12/23 [facility] 11-24-2023 Hospital Discharge instructions Patient Education [...] health careprovider. Avoid caffeine, alcohol, and certain wodn-fos-uwxhdvd cold medicines. These may make you feel worse. Ask your pharmacist which medicines to avoid. General instructions Take qstr-tgm-vgqeays and prescription medicines only as told by [...] Depression Association of [place] (ADAA): www.adaa.org National [place] on Mental Illness (TAYLOR): www.taylor.org Contact a [...] department or: Call your local emergency services (493 in the [place] Call a suicide crisis helpline, such as the National Suicide Prevention Lifeline at or 333 in the [place] This is open 24 hours a day in the [place] Text the Crisis Text Line at 597199 (in the [place] Summary Taking steps to [...] provider. Document Revised: 02/23/2022 Document Reviewed: 11/21/2021 [employer] Patient Education 2022 [employer] 07/07/2023 13:04:14 Atrial Fibrillation Atrial Fibrillation [...] signals of the heart. An ambulatory cardiac exercise specialist to record your heart's activity for a [...] provider. Document Revised: 01/22/2020 Document Reviewed: 01/22/2020 [employer] Patient Education 2022 [employer]. Follow Up Care 07/07/2023 08:56:48 With:Johan HENRIQUEZ Address: [address] [place] [address]- [phone] Business (1) When:07/10/2023 12:45:48 With:Peggy Nazario Address: [address] [place] [address]- Business (1) When:07/10/2023 12:45:46 [facility]11-24-2023 NoteAdmission and Discharge Information Admitting Physician - Noman PATTON DO Consulting Physician - Shell MCMAHON, Eb Yeh [facility] [place] Admitting Diagnoses: [...] of breath. She was subsequently admitted to [facility] with acute paroxysmal atrial fibrillation with rapid ventricular response?new onset, acute systolic congestive heart failure, elevated troponin, severe mitral regurgitation and tricuspid regurgitation, mild coronary artery disease. She was seen in consultation by the bracelet and brooch maker and underwent cardiac catheterization and echo cardiogram. [...] is for patient to follow-up with a bracelet and brooch maker as well as the urologist as outpatient. She may need valvular repair or replacement after follow-up with the bracelet and brooch maker and may also require HAROON as per the bracelet and brooch maker. Discharge time: 35 minutes. I spent 35 [...] 76.7 % Lymph Auto - 15.3 % Ramsey Auto - 7.7 % Eos Auto - 0.0 % Basophil Auto - 0.3 % Neutro Absolute - 4.7 E9/L Lymph Absolute - 0.9 E9/L Ramsey Absolute - 0.5 E9/L Eos Absolute - [...] - 79 mg/dL POC Device SN - [id number] POC User ID - [id number] POC Username - NIKHIL PAULSON CBC w/ [...] HDL - 43 mg/dL (more content not included)...[facility]Result Comment: Electronically Signed By: Nahid SERRATO MD\.br\Date and Time Signed: 07/07/23 12:07 [id number] Evaluation + Plan noteExtracted from: Title:APSO Note Author:Nahid SERRATO MD Date:09/05/22 73-year-old female with history of ureteral stricture with previous dilations, anxiety disorder presented with complaints of urinary hesitancy, constipation, cough and shortness of breath and was admitted to [facility] with acute paroxysmal atrial fibrillation with [...] IV Cardizem drip. Continue on Coreg, digoxin. Insurance Risk Manager debating on starting patient on amiodarone. Eliquis to start in 4 days after cardiac catheterization. Ordered: [facility] Care/Day Moderate 35 Minutes [id number] 2. Acute systolic congestive heart failure (I50.21: Acute systolic (congestive) heart failure) Acute systolic congestive heart failure present on admission. Seen by bracelet and brooch maker and underwent cardiac catheterization that showed mild coronary artery disease. Also shows severe mitral regurgitation and tricuspid regurgitation with ejection fraction of 30 to 35%. Continue on aspirin, Coreg, losartan and Lasix. Ordered: [facility] Care/Day Moderate 35 Minutes [id number] 3. Severe mitral regurgitation (I34.0: Nonrheumatic mitral (valve) insufficiency) As seen on cardiac catheterization. Patient will follow-up with bracelet and brooch maker for HAROON and then valvular repair. Insurance Risk Manager also considering transferring patient to or [facility]. Ordered: [facility] Care/Day Moderate 35 Minutes [id number] 4. Elevated troponin (R79.89: Other specified abnormal findings of blood chemistry) Secondary to type II non-ST segment elevation myocardial infarction from above and mild coronary artery disease.. Seen by bracelet and brooch maker and underwent cardiac catheterization that showed mild coronary artery disease. Continue on aspirin, Lipitor, and Coreg. Ordered: [facility] Care/Day Moderate 35 Minutes 07870 5. Mild coronary artery disease (I25.10: Atherosclerotic heart disease of [place] coronary artery without angina pectoris) As seen on cardiac catheterization on 07/05/2023. Continue on Lipitor and aspirin. Or[facility]: [facility] Care/Day Moderate 35 Minutes [id number] 6. anxiety (F41.9: Anxiety disorder, unspecified) Increase [...] good control with plans to follow-up with bracelet and brooch maker and urologist as outpatient. However if heart rate is still elevated then we will call [facility] or [facility] to see if we can transfer patient for valve repair/replacement. I discussed the diagnosis and plan of care with the patient at the bedside. Moderate level of MDM based on addressing above issues. This documentation was transcribed using voice recognition software. Several attempts were made to ensure accuracy. However inadvertent computerized cable mock up assembler errors may be present. Nahid Serrato. Hospitalist. [...] to transfer the patient directly to the [facility] or [facility] given her logistic challenges with getting [...] artery disease (I25.10: Atherosclerotic heart disease of [place] coronary artery without angina pectoris) 6. Pleural [...] Check Site Check Extracted from: Title:APSO Note Author:OJUKWU MD, Mbanefo Date:09/04/22 73-year-old female with history of ureteral stricture with previous dilations, anxiety disorder presented with complaints of urinary hesitancy, constipation, cough and shortness of breath and was admitted to [facility] with acute paroxysmal atrial fibrillation with [...] date 07/06/23 9:00:00 EST, 07/05/23 11:13:00 EST [facility] Care/Day Moderate 35 Minutes [id number] 2. Acute systolic congestive heart failure (I50.21: Acute systolic (congestive) heart failure) Acute systolic congestive heart failure present on admission. Seen by bracelet and brooch maker. She is status post cardiac catheterization that showed mild coronary artery disease. Also showed severe mitral regurgitation and tricuspid regurgitation.. Ejection fraction of 30 to 35%. Continue on aspirin, Coreg, losartan, Lasix. Ordered: [facility] Care/Day Moderate 35 Minutes 65607 3. Severe mitral regurgitation (I34.0: Nonrheumatic mitral (valve) insufficiency) Severe mitral regurgitation seen on cardiac catheterization. Follow-up with bracelet and brooch maker as outpatient for HAROON and then valvular repair. Ordered: [facility] Care/Day Moderate 35 Minutes [id number] 4. Elevated troponin (R79.89: Other specified abnormal findings of blood chemistry) Secondary to type II non-ST segment elevation myocardial infarction from above and mild coronary artery disease.. Seen by bracelet and brooch maker and underwent cardiac catheterization that showed mild coronary artery disease. Continue on aspirin, Lipitor, and Coreg. Ordered: furosemide, 40 mg = 1 tab(s), Tab, Oral, Daily, Routine, Start date 07/06/23 9:00:00 EST, 07/05/23 11:13:00 EST [facility] Care/Day Moderate 35 Minutes [id number] 5. Mild coronary artery disease (I25.10: Atherosclerotic heart disease of [place] coronary artery without angina pectoris) As seen on cardiac catheterization on 07/06/2023. Continue on Lipitor and aspirin. Ordered: [facility] Care/Day Moderate 35 Minutes 61131 6. Pleural effusion (J90: Pleural effusion, not [...] deep vein thrombosis (DVT) prophylaxis (Z79.899: Other information security risk analyst (current) drug therapy) Lovenox. Disposition: Home in a.m. to follow-up with bracelet and brooch maker and urologist. I discussed the diagnosis and plan of care with the patient at the bedside. Moderate level of MDM based on addressing above issues. This documentation was transcribed using voice recognition software. Several attempts were made to ensure accuracy. However inadvertent computerized cable mock up assembler errors may be present. Nahid Serrato. Hospitalist. Orders: Basic Metabolic Panel Basic Metabolic Panel Referral to [facility] Extracted from: Title:APSO Note Author:JAZMÍN MCMAHON, Nahid Date:09/03/22 73-year-old female with history of ureteral stricture with previous dilations, anxiety disorder presented with complaints of urinary hesitancy, constipation, cough and shortness of breath and was admitted to [facility] with acute paroxysmal atrial fibrillation with [...] BID, # 60 tab(s), Refills(s) 0, Pharmacy: [facility] #[id number], 165, cm, 07/02/23 21:30:00 EST, Height/Length Dosing, 55.7, kg, 07/02/23 21:30:00 EST, Weight Dosing Echo Transthoracic Complete [facility] Care/Day Moderate 35 Minutes 09939 2. Acute systolic congestive heart failure (I50.21: Acute systolic (congestive) heart failure) Acute systolic congestive heart failure present on admission. Cardiology is following. Ejection fraction of 30 to 35%. Cardiology is planning on cardiac catheterization for ischemic work-up in AM. Meanwhile continue on aspirin, Coreg, losartan. We will verify with bracelet and brooch maker about Lasix. Ordered: [facility] Care/Day Moderate 35 Minutes 86806 3. Elevated troponin (R79.89: Other specified abnormal findings of blood chemistry) Secondary to type II non-ST segment elevation myocardial infarction from above. Echocardiogram shows ejection fraction of 30 to 35%. Insurance Risk Manager following with plans for cardiac catheterization in AM. Meanwhile continue on aspirin and Coreg. Ordered: Echo Transthoracic Complete [facility] Hospital Care/Day Moderate 35 Minutes 62368 4. Pleural effusion (J90: Pleural effusion, not elsewhere classified) Small pleural effusion secondary to acute systolic congestive heart failure. Supportive care. Lasix as needed. Ordered: [facility] Care/Day Moderate 35 Minutes [id number] 5. Urinary hesitancy (R39.11: Hesitancy of micturition) Secondary to urethral stricture and urinary retention. She is status post Robles catheter placement. Urology consult reviewed by me. I appreciate and agreed recommendations. Patient will discharge with Robles catheter and leg bag to follow-up with urologist as outpatient. Ordered: [facility] Care/Day Moderate 35 Minutes 71468 6. Other urethral stricture, female (N35.82: Other [...] Daily, NOW, Start date 07/03/23 11:16:00 EST [facility] Care/Day Moderate 35 Minutes 62515 9. On deep vein thrombosis (DVT) prophylaxis [...] made to ensure accuracy. However inadvertent computerized cable mock up assembler errors may be present. Nahid Serrato. Hospitalist. [...] and Plan Diagnosis Atrial fibrillation with RVR (KMI65-WJ I48.91, Discharge, Medical). Constipation (YGO05-MZ K59.00, Discharge, Medical). Other urethral stricture, female (KMU21-ZU N35.82, Discharge, Medical). Urinary retention (LLQ81-LX R33.9, Working, Medical). Course: Worsening, Overall this [...] I ordered echocardiogram. Ordered: Echo Transthoracic Complete [facility] Care/Day Moderate 35 Minutes 80820 2. Elevated troponin (R79.89: Other specified abnormal findings of blood chemistry) Secondary to type II non-ST segment elevation myocardial infarction from above. Echocardiogram ordered. Cardiology consult pending. Continue on aspirin. Ordered: Echo Transthoracic Complete [facility] Care/Day Moderate 35 Minutes 68781 3. Urinary hesitancy (R39.11: Hesitancy of micturition) Secondary to urethral stricture. Patient is status post Robles catheter placement for urinary retention. She will follow-up with urologist as outpatient. Ordered: [facility] Care/Day Moderate 35 Minutes 89734 4. Constipation (K59.00: Constipation, unspecified) Started patient on MiraLAX and lactulose. Ordered: lactulose, 20 gram = 30 mL, Syrup, Oral, Once, Stop date 07/03/23 12:00:00 EST, Routine, Start date 07/03/23 12:00:00 EST, 07/03/23 12:00:00 EST polyethylene glycol 3350, 17 gram = 1 EA, Powder-Recon, Oral, Daily, Routine, Start date 07/03/23 12:00:00 EST, 07/03/23 12:00:00 EST [facility] Care/Day Moderate 35 Minutes 09631 5. Other urethral stricture, female (N35.82: Other urethral stricture, female) Resulting in urinary retention. Patient is status post Robles catheter during this admission. Gets dilation of the ureter every 6 months. Urology consult pending. 6. On deep vein thrombosis (DVT) prophylaxis (Z79.899: Other information security risk analyst (current) drug therapy) Lovenox. Disposition: Pending echocardiogram, cardiology and urology consult. I discussed the diagnosis and plan of care with the patient at the bedside. Moderate level of MDM based on addressing above issues. This documentation was transcribed using voice recognition software. Several attempts were made to ensure accuracy. However inadvertent computerized cable mock up assembler errors may be present. Nahid Serrato. Hospitalist. [...] prophylaxis (Z79.899: Other half-way (current) drug therapy) SCD, enoxaparin Orders: acetaminophen, [...] be observation status. Extracted from: Title:ED Note Author:Layton Crawford M.D. te:07/03/23 1. Urinary hesitancy (R39.11 : Hesitancy [...] PM Scheduled Provider:Micheline BROOKS MD Location:[facility] Appointment Type:URO Office Visit Future Scheduled Tests Laboratory* Basic Metabolic Panel 07/12/23 * Digoxin Level 07/12/23 [facility]11-22-2023 NoteCRM entered the room to discuss [...] transport. Plan now to stay, [facility] on above:Result Comment: Electronically Signed By: Margaret Grimm\.br\Date and Time Signed: 07/05/23 15:06 [id number] Evaluation + Plan noteExtracted from: Title:Procedure Note [...] PM Scheduled Provider:Micheline BROOKS MD Location:[facility] Appointment Type:URO Office Visit Future Scheduled Tests Laboratory* Basic Metabolic Panel 07/12/23 * Digoxin Level 07/12/23 [facility]11-22-2023 Hospital Discharge instructions Patient Education 07/05/2023 09:04:47 CV - Cardiovascular Discharge Instructions (Custom) [place], [place] CARDIOVASCULAR DISCHARGE INSTRUCTIONS Diet: Resume pre-procedure [...] hours post procedure: Actoplus MetGlucophageGlucophage XR GlucovanceAvandametFortamet Vsi-soznhleyfRkryaqTdoq-mvbckaydu GlumetzaJanumetMetaglip RiometGlycomet *Minimal pain, soreness and/or discomfort [...] you are interested in smoking cessation, contact [facility] [place] [phone], ext. [phone]. In the event you are unable to reach your physician, please call [facility] at [phone] and the acoustic sensor operator will assist you. Seek Immediate Medical Care for: Bleeding: Apply continuous pressure to the site and Call 911. Should the arm or leg become cold, numb, blue or white call your physician immediately. Signs of infection are redness, warmth, swelling, increased tenderness, colored drainage, fever or chills Chest pain Follow Up Care 07/02/2023 21:18:33 With:Johan HENRIQUEZ Address: [address] [place] [phone]- [phone] Business (1) When:2 weeks Comments:Call for followup appointment With:Peggy Nazario Address: [address] [place] [phone] Business (1) When:07/10/2023 13:00:00 With:Micheline BROOKS Address: [facility] [address] [place] [address] Business (1) When: Unknown Comments:Call for followup appointment re: the indwelling Robles catheter. [facility]11-21-2023 NoteCRM entered the room to discuss dc planning. PCP, DME and insurance discussed. Patient is alert andinvolved in plan of care. Contact information provided and whiteboard updated. Pt was seen by Cardstomarsha, pt will be dc'd on Adlyfe. CRM will pablo check and apply coupon if needed. Lucila Humphreys. Xavier coelho today. Pt will transport self home.[facility]:Result Comment: Electronically Signed By: Margaret Grimm\Date and Time Signed: 07/04/23 10:49 [id number] NoteChief Complaint I cannot urinate Reason for [...] deep vein thrombosis (DVT) prophylaxis (Z79.899: Other information security risk analyst (current) drug therapy) Urinary retention (R33.9: Retention [...] tab(s), Oral, Daily Ativa (more content not included)...[facility]: Result Comment: Electronically Signed By: Shell MCMAHON, Eb Yeh\.br\Date and Time Signed: 07/03/23 21:35 [id number] NoteEchocardiology Procedure Exam Date/Time Accession # Ordering Echo Transthoracic 07/03/2023 13:36 EST [id number] Nahid SERRATO MD Complete CPT code 30084 75711 Reason for Exam (Echo Transthoracic Complete) Congestive Heart Failure Report Version: 1 Study ID: [id number] [facility] [address] [place] [address] Adult Echocardiogram Report Name: HARJIT ASENCIO I Study Date: 07/03/2023, 1: 00 PM Patient Location: [address] [place] [address] : 1950 (MM/DD/YYYY) Gender: Female Age: 73 [...] Signed by: Eb Goff MD Transcribed by: [facility] Technologist: Hina [facility]11-20-2023 Note Chief Complaint Pt presents to [...] MCH: 29.7 pg (07/02/23:10:00) MCHC: 32.9 gm/dL (07/02/23 22:10:00) RDW: 13.5 % (07/02/23 22:10:00) Platelet: 183 E9/L (07/02/23 22:10:00) MPV: 9.1 fL (07/02/23 22:10:00) Neutro Auto: 76.7 % High (07/02/23 22:10:00) Lymph Auto: 15.3 % (07/02/23 22:10:00) Ramsey Auto: 7.7 % (07/02/23 22:10:00) Eos Auto: 0 % (07/02/23 22:10:00) Basophil Auto: 0.3 % (07/02/23 22:10:00) Neutro Absolute: 4.7 E9/L (07/02/23 22:10:00) Lymph Absolute: 0.9 E9/L Low (07/02/23 22:10:00) Ramsey Absolute: 0.5 E9/L (07/02/23 22:10:00) Eos Absolute: 0 E9/L (07/02/23 22:10:00) Basophil Absolute: 0 E9/L (07/02/23 22:10:00) PT: 13.2 second(s) High (07/02/23:10:00) INR: 1.2 (07/02/23:10:00) PTT: 30.2 second(s) (07/02/23:10:00) Glucose Lvl: 129 mg/dL (07/02/23:10:00) BUN: 13 mg/dL (07/02/23:10:00) Creatinine: 1 mg/dL (07/02/23:10:) eGFR: 59 mL/min/1.73 m2 (07/02/23:10:00) BUN/Creat Ratio: 13 (07/02/23:10:) Sodium Lvl: 133 mmol/L Low (07/02/23:10:) Potassium Lvl: 3.8 mmol/L (07/02/23:10:) Chloride: 100 mmol/L Low (07/02/23:10:00) CO2: 24 mmol/L (07/02/23:10:) AGAP: 13 mEq/L (07/02/23:10:00) Calcium Lvl: 9.1 mg/dL (07/02/23:10:00) Alk Phos: 58 Int._Unit/L (07/02/23:10:00) ALT: 66 Int._Unit/L High (07/02/23:10:00) AST: 81 Int._Unit/L High (07/02/23:10:00) Total Protein: 6.7 gm/dL (07/02/23:10:00) Albumin Lvl: 3.8 gm/dL (07/02/23:10:00) Globulin: 2.9 gm/dL (07/02/23:10:00) A/G Ratio: 1.3 (07/02/23:10:00) Bili Total: 0.5 mg/dL (07/02/23:10:00) Bili Direct: 0.1 mg/dL (07/02/23 22:10:00) Bili Indirect: 0.4 mg/dL (07/02/23:10:00) Magnesium: 2 mg/dL (11/19/23 22:10:00) Troponin: 27.7 pg/mL High (07/03/23 02:00:00) UA Spec Desc: Robles (07/02/23 22:18:00) UA Color: Yellow2 (07/02/23 22:18:00) UA Clarity: Clear2 (07/02/23 22:18:00) UA Spec Grav: 1.025 (07/02/23 22:18:00) UA pH: 5.5 (07/02/23 22:18:00) UA Protein: NEGATIVE1 (07/02/23 22:18:00) UA Glucose: NEGATIVE1 (07/02/23 22:18:00) UA Ketones: Trace2 (07/02/23 22:18:00) UA Bili: NEGATIVE1 (07/02/23 22:18:00) UA Blood: Trace2 Abnormal (07/02/23 22: (more content not included)...[facility]Comment [facility]:Result Comment: Electronically Signed By: Nomna PATTON DO\Date and Time Signed: 07/03/23 02:59 [id number] Hospital Discharge instructions Patient Education 07/01/2023 00:37:46 Abdominal Pain, Adult, Zage-qx-Iban Abdominal Pain, Adult Many things can cause belly (abdominal) pain. Most times, belly pain is not dangerous. Many cases of belly pain can be watched and treated at home. Sometimes, though, belly pain is serious. Your doctor will try to find the cause of your belly pain. Follow these instructions at home: Medicines Take fvny-eze-lbddlcc and prescription medicines only as told by [...] your belly pain for any changes. Take slgy-eqk-oulmfrd and prescription medicines only as told by [...] provider. Document Revised: 12/09/2019 Document Reviewed: 12/09/2019 [employer] Patient Education 2022 [employer]. Follow Up Care 06/30/2023 18:51:38 With:Peggy Nazario Address: [address] [place] [phone] Business (1) When:07/04/2023 Comments:You can use the Bentyl, Zofran every 6 hours as needed for pain and nausea. Please follow-up with your primary care doctor next 2 to 3 days for further evaluation management. Please return to the ED for any new or worsening symptoms. [facility]11-17-2023 Evaluation + Plan noteExtracted from: Title:ED Note Author:Koby Masterson DO Date :06/30/23 Abdominal pain, acute (R10.9 : Unspecified abdominal pain) Orders: dicyclomine, 20 mg = 2 mL, Injection, IntraMuscular, Once, Stop date 06/30/23 20:58:00 EST, STAT, Start date 06/30/23 20:58:00 EST, 06/30/23 20:58:00 EST dicyclomine, 10 mg = 1 cap(s), Oral, QID, X 7 day(s), # 14 cap(s), Refills(s) 0, Pharmacy: [facility] #[id number], 165, cm, 06/30/23 19:37:00 EST, Height/Length Dosing, [...] q8hr, # 12 tab(s), Refills(s) 0, Pharmacy: [facility] #[id number], 165, cm, 06/30/23 19:37:00 EST, Height/Length Dosing, 55.7, kg, 06/30/23 19:37:00 EST, Weight Dosing Automated Diff Basic Metabolic Panel CBC w/ Auto Diff CT Abdomen/Pelvis w/o Contrast eGFR Extra Blue Tube Hepatic Function Panel Lipase Level UA With Cult Reflex Future Appointments Appointment Date:11/22/2023 01:00:00 PM Scheduled Provider:Micheline BROOKS MD Location:[facility] Appointment Type:URO Office Visit [facility]09-13-2023 Hospital Discharge instructions Patient Education 04/26/2023 [...] symptoms are. Treatment may include: Using an ybjf-zcb-bqwonxc vaginal lubricant before sex. Using a long-acting [...] Follow these instructions at home: Medicines Take slpo-bys-qjsmwlx and prescription medicines only as told by your health care provider. Do not use herbal or alternative medicines unless your health care provider says that you can. Use blfr-eyu-jxidybk creams, lubricants, or moisturizers for dryness only [...] provider. Document Revised: 01/28/2021 Document Reviewed: 01/28/2021 [employer] Patient Education 2022 [employer]. Follow Up Care 10/25/2022 10:34:06 With:CECILIA MCMAHON, Micheline Morgan, URL Address: [facility] [address] , [place] [address]- When: Unknown [facility] Shira 08-22-2023 Hospital Discharge instructions Patient [...] Follow these instructions at home: Medicines Take jpkh-njm-wfnnmla and prescription medicines only as told by [...] Watch your condition for any changes. Take dnuz-uph-ovnpebl and prescription medicines only as told by [...] provider. Document Revised: 09/18/2020 Document Reviewed: 12/09/2019 [employer] Patient Education 2022 [employer]. Follow Up Care 04/04/2023 13:51:29 With:Peggy Nazario Address: [address] [place], [place] [id number] [facility] (1) When:04/07/2023 16:25:09 Comments:Call the office [...] you develop any new or worsening symptoms. [facility]06-18-2023 Hospital Discharge instructions Patient Education 01/28/2023 23:28:19 RICE Therapy for Routine Care of Injuries, Qxce-ig-Bzyf RICE Therapy for Routine Care of Injuries [...] provider. Document Revised: 05/20/2021 Document Reviewed: 05/20/2021 [employer] Patient Education 2022 [employer] 01/28/2023 23:28:19 Hand Contusion Hand Contusion [...] An elastic wrap to support your hand. Jyhq-dlh-axitoll medicines to control pain. Follow these instructions [...] sitting or lying down. General instructions Take abvl-bou-urwfojp and prescription medicines only as told by [...] provider. Document Revised: 11/18/2021 Document Reviewed: 11/18/2021 [employer] Patient Education 2022 [employer]. Follow Up Care 01/28/2023 21:23:51 With:Peggy Nazario Address: [address] [place] [id number] [facility] (1) When:01/31/2023 Comments:Follow-up with your primary care provider in 3 to 5 days. If symptoms worsen, do not improve, or new symptoms arise please report back to emergency department for further evaluation. [facility]06-17-2023 Evaluation + Plan noteExtracted from: Title:ED Note Author:Med Medeiros PA-C te:01/28/23 Contusion of left hand (S60. 222A: Contusion of left hand, initial encounter) Orders: XR Hand 3+ Views Left Future Appointments Appointment Date:04/26/2023 03:15:00 PM Scheduled Provider:Micheline BROOKS MD Location:[facility] Appointment Type:URO Office Visit [facility]03-14-2023 Hospital Discharge instructions Patient Education 10/25/2022 [...] [facility] [address] [place] [address]- Business (1) When:04/27/2023 10:27:19 [facility]07-21-2022 Hospital Discharge instructions Patient Education 03/03/2022 [...] reconstructed. Follow these instructions at home: Take cqqt-ujv-ddmpvmx and prescription medicines only as told by [...] 08/26/2016 Document Revised: 03/13/2019 Document Reviewed: 03/13/2019 [employer] Patient Education 2020 [employer]. Follow Up Care 02/28/2022 09:40:23 With:CARMINA GARRISON PA-C, URL Address: [address] [place] [address] When: Unknown [facility] 07-05-2022 Hospital Discharge instructions Patient Education 02/15/2022 14:03:18 Contusion, Evno-ig-Lodk Contusion A contusion is a deep bruise. [...] sitting or lying down. General instructions Take fbms-hvg-ajiszql and prescription medicines only as told by [...] is also called RICE. Youmay be given frbn-yhb-uhvsxpq medicines for pain. Contact a doctor if [...] 01/16/2009 Document Revised: 03/22/2019 Document Reviewed: 03/22/2019 [employer] Patient Education 2020 [employer]. Follow Up Care 02/15/2022 13:08:58 With:Aravind MCMAHON, KANA Saini Address: [address] [place], [place] [id number]- When:02/18/2022 [facility]05-13-2022 Hospital Discharge instructions Patient Education 12/24/2021 18:30:08 Chemical Conjunctivitis, Adult, Uoof-dh-Bczi Chemical Conjunctivitis, Adult Chemical conjunctivitis is irritation [...] cannot use soap and water use hand welt stitch cleaner. Contact a doctor if: Your symptoms do [...] 07/31/2006 Document Revised: 11/20/2019 Document Reviewed: 10/06/2017 [employer] Patient Education 2020 [employer]. Follow Up Care 12/24/2021 17:34:06 With:Krysta Church Address: [address] [place] [address], [address] [place] [phone] Business (1) When:12/27/2021 18:21:21 With:Peggy Nazario Address: [address] [place], [place] [id number]- Business (1) When:Within 3 Day(s) [facility] Future Appointments Appointment Date:03/02/2022 02:00:00 PM Scheduled Provider:Micheline BROOKS MD Location:[facility] Appointment Type:URO Office Visit Future Scheduled Tests [place]* [place] [place]21 [facility] Future Appointments Appointment Date:02/28/2022 09:30:00 AM Scheduled Provider:Yenn[facility] Iraheta [facility] Type:Vascular New Patient (FT) Appointment Date:03/02/2022 02:00:00 PM Scheduled Provider:Micheline BROOKS MD Location:[facility] Appointment Type:URO Office Visit Future Scheduled Tests Laboratory* [place] [place] 08/12/21 [facility] Future Appointments Appointment Date:04/04/2022 10:00:00 AM Scheduled Provider:Yennifer Iraheta MD [facility] Appointment Type:Vascular New Patient (FT) Future Scheduled Tests Laboratory* [place] [place] 08/[place]21 [facility] Evaluation + Plan note Future Appointments Appointment Date:07/25/2022 09:15:00 AM Scheduled Provider:Yennifer Iraheta MD [facility] App[facility] Type:Vascular Follow Up (FT) Appointment Date:09/26/2022 02:45:00 PM Scheduled Provider:Micheline BROOKS MD [facility] Type:[facility]O Office Visit Future Scheduled Tests Laboratory* [place] [place]21 Radiology* US LE Venous Duplex Insufficiency Bilat 06/14/22 [facility] Future Appointments Appointment Date:07/25/2022 09:15:00 AM Scheduled Provider:Yennifer Iraheta MD [facility] Type:Vascular Follow Up (FT) Appointment Date:09/26/2022 02:45:00 PM Scheduled Provider:Micheline BROOKS MD [facility] Type:URO Office Visit Future Scheduled Tests Laboratory* [place] [place] 08/12/21 [facility] Future Appointments Appointment Date:09/26/2022 02:45:00 PM Scheduled Provider:[facility]iche[facility]KS [facility] Future Appointments Appointment Date:12/05/2022 03:00:00 PM Scheduled Provider: [facility] Appoint[facility] Type:MA Screen (FT) Appointment Date:04/26/2023 03:15:00 PM Scheduled Provider:Micheline BROOKS MD Location:[facility] Appointment Type:URO Office Visit Future Scheduled Tests Radiology* MA Mamm Screen w/CAD if perf and 3D Dawson 12/05/22 [facility] Future Appointments Appointment Date:04/26/2023 03:15:00 PM Scheduled Provider:[facility]iche[facility]KS [facility]O [facility] Future Appointments Appointment Date:07/19/2023 03:00:00 PM Scheduled Provider:Micheline BROOKS MD Location:[facility] Appointment Type:URO Office Visit Appointment Date:07/20/2023 10:30:00 AM Scheduled Provider:Johan HENRIQUEZ MD [facility] Type:Cardiology Inpatient Follow Up (FT) Appointment Date:11/22/2023 01:00:00 PM Scheduled Provider:Micheline BROOKS MD Location:[facility] Appointment Type:URO Office Visit Future Scheduled Tests Laboratory* Basic Metabolic Panel 07/12/23 * Digoxin Level 07/12/23 [facility] Future Appointments Appointment Date:01/24/2024 02:30:00 PM Scheduled Provider:Micheline BROOKS MD Location:[facility] Appointment Type:URO Office Visit Future Scheduled Tests Laboratory* Basic Metabolic Panel 07/12/23 * Digoxin Level 07/12/23 [facility] Future Appointments Appointment Date:01/24/2024 02:30:00 PM Scheduled Provider:Micheline BROOKS MD Location:[facility] Appointment Type:URO Office Visit Diagnostic Tests Pending * Urine Culture 11/22/23 Future Scheduled Tests Laboratory* Basic Metabolic Panel 07/12/23 * Digoxin Level 07/12/23 [facility]* Diagnosis Anxiety Anxiety state, unspecified [...] cardiomyopathies Persistent atrial fibrillation (HCC) Atrial fibrillation 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 Long-term (current) use of 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s History of cardioversion Personal history of surgery to heart and great vessels, presenting hazards to health Primary hypertension Unspecified essential hypertension [facility] Mitral valve insufficiency, unspecified etiology- Primary Anxiety Anxiety state, unspecified Paroxysmal atrial fibrillation (CMS/HCC) Atrial fibrillation Other cardiomyopathy (CMS/HCC) Hospital discharge follow-up Other follow-up examination Other thrombophilia (D68.69) Atherosclerosis of aorta (I70.0) Atherosclerosis of aorta documented in this encounter [facility]* Diagnosis Feeling of incomplete bladder emptying- Primary Incomplete bladder emptying Stricture of female urethra, unspecified stricture type Severe protein-calorie malnutrition (HCC) Other severe protein-calorie malnutrition [facility] Diagnosis Screening for genitourinary condition Screening for other and unspecified genitourinary condition [facility] Diagnosis Feeling of incomplete bladder emptying- Primary Incomplete bladder emptying Stricture of female urethra, unspecified stricture type Severe protein-calorie malnutrition (HCC) Other severe protein-calorie malnutrition [facility] Diagnosis Mitral valve regurgitation due to cardiomyopathy (HCC)- Primary [facility] Diagnosis Non-rheumatic mitral regurgitation Mitral valve disorders Persistent atrial fibrillation (HCC) Atrial fibrillation Non-ischemic cardiomyopathy (HCC) Other primary cardiomyopathies Chronic HFrEF (heart failure with reduced ejection fraction) (HCC) [facility] Diagnosis Stricture of female urethra, unspecified stricture type- Primary Feeling of incomplete bladder emptying Incomplete bladder emptying [facility] Diagnosis Screening for genitourinary condition Screening for other and unspecified genitourinary condition [facility] Diagnosis Feeling of incomplete bladder emptying- Primary Incomplete bladder emptying Stricture of female urethra, unspecified stricture type [facility] Diagnosis Dysuria documented in this encounter [facility]* Diagnosis Anxiety Anxiety state, unspecified documented in this encounter [facility]* Diagnosis Postmenopausal atrophic vaginitis Breast cancer screening by mammogram documented in this encounter [facility]* Diagnosis Dysuria- Primary Urinary frequency Atrial fibrillation, persistent (HCC) (CMS/HCC) 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 BMI 22.0-22.9, adult [...] agoraphobia Acute cough- Primary Hematuria, unspecified type care home 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 Atrial fibrillation, persistent [...] cough- Primary Bruising Contusion of unspecified site care home 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 Atrial fibrillation, persistent [...] agoraphobia Atrial fibrillation, persistent (HCC) (CMS/HCC)- Primary care home 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 Primary hypertension (CMS/HCC) [...] agoraphobia Atrial fibrillation, persistent (HCC) (CMS/HCC)- Primary care home 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 Mitral valve regurgitation due to cardiomyopathy (HCC) (CMS/HCC) Anxiety Anxiety state, unspecified [facility] Diagnosis Primary hypertension- Primary Unspecified essential hypertension Atrial fibrillation, persistent (HCC) Atherosclerosis of aorta Panic attack Panic disorder without agoraphobia Frequent urination- Primary Urinary frequency Painful urination Dysuria Left lower quadrant pain Abdominal pain, left lower quadrant Gastroesophageal reflux disease without esophagitis Esophageal reflux Exertional dyspnea Other dyspnea and respiratory abnormality Mitral valve regurgitation due to cardiomyopathy (HCC) Hypertensive heart disease with heart failure (HCC) Unspecified hypertensive heart disease with heart failure Unspecified systolic (congestive) heart failure (HCC) [facility] Narrative No data available for this section [facility] Dis[facility] instructions No data available for this section [facility] No data available for this section [facility]Reason for referral (narrative) , Mitral Valve and Tricuspid Valve Repair. Referred by: Johan HENRIQUEZ MD [facility] (narrative)* Outpatient Procedure (Routine) - Authorized Specialty Diagnoses / Procedures Referred By Marietta aguiar Referred To Contact [facility] [place] Diagnoses Non-rheumatic mitral regurgitation Persistent atrial fibrillation (HCC) Non-ischemic cardiomyopathy (HCC) Chronic HFrEF (heart failure with reduced ejection fraction) (HCC) Procedures ECG COMPLETE ECG ROUTINE ECG W/LEAST 12 LDS W/I&R Ana Rivas APRN.CNP [id number] [place] [address] Referral ID Status Reason Start Date Expiration Date Visits Requested Visits Authorized [id number] Authorized Auto-Generat ed Referral 11/08/2023 09/25/2024 1 1 * Transition of Care (Routine) - Ref Not Required Specialty Diagnoses / Procedures Referred By Marietta aguiar Referred To Contact Diagnoses Non-rheumatic mitral regurgitation Persistent atrial fibrillation (HCC) Non-ischemic cardiomyopathy (HCC) Chronic HFrEF (heart failure with reduced ejection fraction) (HCC) Procedures CARDIOVASCULAR MEDICINE OP FOLLOW UP APPT ORDER Ana Rivas APRN.CNP [address] [place] [address] Referral ID Status Reason Start Date Expiration Date Visits Requested Visits Authorized [id number] Ref Not Required PCP Requested Referral 09/26/2023 09/25/2024 1 1 * Outpatient Procedure (Routine) - Authorized Specialty Diagnoses / Procedures [facility] Referred To Contact [facility] [place] Diagnoses Non-rheumatic mitral regurgitation Persistent atrial fibrillation (HCC) Non-ischemic cardiomyopathy (HCC) Chronic HFrEF (heart failure with reduced ejection fraction) (HCC) Procedures ECG COMPLETE ECG ROUTINE ECG W/LEAST 12 LDS W/I&R Ana Rivas APRN.CNP [address] [place] [address] [facility] [address] [address] Referral ID Status Reason Start Date Expiration Date Visits Requested Visits Authorized [id number] Authorized Auto-Generat ed Referral 10/25/2023 09/25/2024 1 1 * Transition of Care (Routine) - Ref Not Required Specialty Diagnoses / Procedures Referred By Contac t Referred To Contact Diagnoses Non-rheumatic mitral regurgitation Persistent atrial fibrillation (HCC) Non-ischemic cardiomyopathy (HCC) Chronic HFrEF (heart failure with reduced ejection fraction) (HCC) Procedures CARDIOVASCULAR MEDICINE OP FOLLOW UP APPT ORDER Ana Rivas APRN.CNP [address] [place] [address] Referral ID Status Reason Start Date Expiration Date Visits Requested Visits Authorized [id number] Ref Not Required PCP Requested Referral 09/26/2023 09/25/2024 1 1 * Outpatient Procedure (Routine) - Authorized Specialty Diagnoses / Procedures Referred By Contac t Referred To Contact [facility] [place] Diagnoses Non-rheumatic mitral regurgitation Persistent atrial fibrillation (HCC) Non-ischemic cardiomyopathy (HCC) Chronic HFrEF (heart failure with reduced ejection fraction) (HCC) Procedures ECG COMPLETE ECG ROUTINE ECG W/LEAST 12 LDS W/I&R Ana Rivas APRN.CNP [address] [place] [address] [address] Referral ID Status Reason Start Date Expiration Date Visits Requested Visits Authorized [id number] Authorized Auto-Generat ed Referral 10/10/2023 09/25/2024 1 1 * Transition of Care (Routine) - Ref Not Required Specialty Diagnoses / Procedures Referred By Contac t Referred To Contact Diagnoses Non-rheumatic mitral regurgitation Persistent atrial fibrillation (HCC) Non-ischemic cardiomyopathy (HCC) Chronic HFrEF (heart failure with reduced ejection fraction) (HCC) Procedures CARDIOVASCULAR MEDICINE OP FOLLOW UP APPT ORDER Ana Rivas APRN.CNP [address] [place] [address] Referral ID Status Reason Start Date Expiration Date Visits Requested Visits Authorized [id number] Ref Not Required PCP Requested Referral 09/26/2023 09/25/2024 1 1 [facility] for referral (narrative)* Consultation (Routine) - Pending Review Specialty Diagnoses / Procedures Referred By Contac t Referred To Contact Cardiothoracic Surgery Diagnoses Mitral valve insufficiency, unspecified etiology Procedures MO OFFICE/OUTPATIENT [facility] 60 MINUTES [place] [address] Referral ID Status Reason Start Date Expiration Date Visits Requested Visits Authorized [id number] Pending Review Specialty Services Required 09/18/2023 03/16/2024 [...] content) DATE CREATED AUTHOR 08/23/2021 [facility] dical Specialist DATE CREATED AUTHOR AUTHOR'S ORGANIZ ATION 06/05/2024 [facility] DATE CREATED AUTHOR AUTHOR'S ORGANIZ ATION 06/11/2024 Yen Hernandez [facility] DATE CREATED AUTHOR AUTHOR'S ORGANIZ ATION 06/29/2024 [facility] DATE CREATED AUTHOR AUTHOR'S ORGANIZ ATION 11/22/2024 [facility] DATE CREATED AUTHOR AUTHOR'S ORGANIZ ATION 04/04/2025 [facility] DATE CREATED AUTHOR AUTHOR'S ORGANIZ ATION 04/08/2025 [facility] dical Specialists EPIC Care Team (unrecognized sect ion and content) Electronic Calibration Technician Relationship Specialty Start Date End Date Peggy Nazario [address] [place] [address] PCP - General Family Medicine 07/24/23 Micheline Sorto MD [address] [place] [address] Surgeon Cardiac Surg 07/24/23 Johan Henriquez MD [facility] [address] [address] Insurance Risk Manager Cardiology 07/24/23 Electronic Calibration Technician Relationship Specialty Start Date End Date Peggy Nazario MD [address] [place] [address] PCP - ACO Reach 5/25/23 Peggy Nazario MD [address] [place] [address] PCP - General Family Medicine 02/08/23 Electronic Calibration Technician Relationship Specialty Start Date End Date Peggy Nazario MD [address] [place] [address] PCP - ACO Reach 01/05/23 Peggy Nazario MD [address] [place] [address] PCP - General Family Medicine 02/08/23 Electronic Calibration Technician Relationship Specialty Start Date End Date Peggy Nazario [address] [place] [address] PCP - General Family Medicine 07/24/23 Micheline Sorto MD [address] [place] [address] Surgeon Cardiac Surg 07/24/23 Johan Henriquez MD [facility] [address] [place] [address] Insurance Risk Manager Cardiology 07/24/23 Alea Harley MD [address] [place] [address] Cardiology 07/28/23 Alea Harley MD [address] [place] [address] Primary Staff Physician Cardiology 08/23/23 Electronic Calibration Technician Relationship Specialty Start Date End Date Peggy Nazario [address] [place] [address] PCP - General Family Medicine 07/24/23 Micheline Sorto MD [address] [place] [address] Surgeon Cardiac Surg 07/24/23 Johan Henriquez MD [address] [facility] [facility] [place] [address] Insurance Risk Manager Cardiology 07/24/23 Alea Harley MD [address] [place] [address] Cardiology 07/28/23 Alea Harley MD [address] [place] [address] Primary Staff Physician Cardiology 08/23/23 Electronic Calibration Technician Relationship Specialty Start Date End Date Peggy Nazario [address] [place] [address] PCP - General Family Medicine 07/24/23 Micheline Sorto MD [address] [place] [address] Surgeon Cardiac Surg 07/24/23 Johan Henriquez MD [address] [place] [address] Insurance Risk Manager Cardiology 07/24/23 Alea Harley MD [address] [place] [address] Cardiology 07/28/23 Alea Harley MD [address] [place] [address] Primary Staff Physician Cardiology 08/23/23 Electronic Calibration Technician Relationship Specialty Start Date End Date Peggy Nazario MD [address] [place] [address] PCP - ACO Reach 01/05/23 Peggy Nazario MD [address] [place] [address] PCP - General Family Medicine 02/08/23 Electronic Calibration Technician Relationship Specialty Start Date End Date Peggy Nazario [address] [place] [address] PCP - General Family Medicine 07/24/23 Micheline Sorto MD [address] [place] [id number] Surgeon Cardiac Surg 07/24/23 Johan Henriquez MD [facility] [place] [address] Insurance Risk Manager Cardiology 07/24/23 Alea Harley MD [address] [place] [id number] Cardiology 07/28/23 Alea Harley MD [address] [place] [address] Primary Staff Physician Cardiology 08/23/23 Electronic Calibration Technician Relationship Specialty Start Date End Date Peggy Nazario MD [address] [place] [address] PCP - ACO Reach 01/05/23 Peggy Nazario MD [address] [place] [address] PCP - General Family Medicine 02/08/23 Electronic Calibration Technician Relationship Specialty Start Date End Date Peggy Nazario [address] [place] [address] PCP - General Family Medicine 07/24/23 Micheline Sorto MD [address] [place] [address] Surgeon Cardiac Surg 07/24/23 Johan Henriquez MD [address] [place] [address] Insurance Risk Manager Cardiology 07/24/23 Alea Harley MD [address] [place] [address] Cardiology 07/28/23 Alea Harley MD [address] [place] [address] Primary Staff Physician Cardiology 08/23/23 Electronic Calibration Technician Relationship Specialty Start Date End Date Peggy Nazario [address] [place] [address] PCP - General Family Medicine 07/24/23 Micheline Sorto MD [address] [place] [address] Surgeon Cardiac Surg 07/24/23 Johan Henriquez MD [address] [place] [address] Insurance Risk Manager Cardiology 07/24/23 Alea Harley MD [address] [place] [address] Cardiology 07/28/23 Alea Harley MD [address] [place] [address] Primary Staff Physician Cardiology 08/23/23 Electronic Calibration Technician Relationship Specialty Start Date End Date Peggy Nazario [address] [place] [address] PCP - General Family Medicine 07/24/23 Micheline Sorto MD [address] [place] [address] Surgeon Cardiac Surg 07/24/23 Johan Henriquez MD [facility] [address] [facility] [place] [address] Insurance Risk Manager Cardiology 07/24/23 Alea Harley MD [address] [place] [address] Cardiology 07/28/23 Alea Harley MD [address] [place] [address] Primary Staff Physician Cardiology 08/23/23 Electronic Calibration Technician Relationship Specialty Start Date End Date Peggy Nazario [address] [place] [address] PCP - General Family Medicine 07/24/23 Micheline Sorto MD [address] [place] [address] Surgeon Cardiac Surg 07/24/23 Johan Henriquez MD [address] [place] [address] Insurance Risk Manager Cardiology 07/24/23 Alea Harley MD [address] [place] [address] Cardiology 07/28/23 Alea Harley MD [address] [place] [address] Primary Staff Physician Cardiology 08/23/23 Electronic Calibration Technician Relationship Specialty Start Date End Date Peggy Nazario [address] [place] [address] [place] [address] PCP - General Family Medicine 07/24/23 Micheline Sorto MD [address] [place] [address] Surgeon Cardiac Surg 07/24/23 Johan Henriquez MD [address] [place] [address] Insurance Risk Manager Cardiology 07/24/23 Alea Harley MD [address] [place] [address] Cardiology 07/28/23 Alea Harley MD [address] [place] [address] Primary Staff Physician Cardiology 08/23/23 Electronic Calibration Technician Relationship Specialty Start Date End Date Peggy Nazario [address] [place] [address] PCP - General Family Medicine 07/24/23 Micheline Sorto MD [address] [place] [address] Surgeon Cardiac Surg 07/24/23 Johan Henriquez MD [address] [address] Insurance Risk Manager Cardiology 07/24/23 Alea Harley MD [address] [place] [address] Cardiology 07/28/23 Alea Harley MD [address] [place] [address] Primary Staff Physician Cardiology 08/23/23 Electronic Calibration Technician Relationship Specialty Start Date End Date Peggy Nazario [address] [place] [address] PCP - General Family Medicine 07/24/23 Micheline Sorto MD [address] [place] [address] Surgeon Cardiac Surg 07/24/23 Johan Henriquez MD [address] [place] [address] Insurance Risk Manager Cardiology 07/24/23 Alea Harley MD [address] [place] [address] Cardiology 07/28/23 Alea Harley MD [address] [place] [address] Primary Staff Physician Cardiology 08/23/23 Electronic Calibration Technician Relationship Specialty Start Date End Date Peggy Nazario [address] [place] [address] PCP - General Family Medicine 07/24/23 Micheline Sorto MD [address] [place] [address] Surgeon Cardiac Surg 07/24/23 Johan Henriquez MD [facility] [place] [address] Insurance Risk Manager Cardiology 07/24/23 Alea Harley MD [address] [place] [address] Cardiology 07/28/23 Alea Harley MD [address] [place] [address] Primary Staff Physician Cardiology 08/23/23 Electronic Calibration Technician Relationship Specialty Start Date End Date Peggy Nazario MD [address] [place] [address] PCP - ACO Reach 01/05/23 Hannah Brian MD [address] [place] [address] PCP - General Family Medicine 11/03/23 Electronic Calibration Technician Relationship Specialty Start Date End Date Peggy Nazario MD [address] [place] [address] PCP - ACO Reach 01/05/23 Hannah Brian MD [address] [place] [address] PCP - General Family Medicine 11/03/23 Electronic Calibration Technician Relationship Specialty Start Date End Date Peggy Nazario MD [address] [place] [address] PCP - ACO Reach 01/05/23 Hannah rBian MD [address] [place] [address] PCP - General Family Medicine 11/03/23 Electronic Calibration Technician Relationship Specialty Start Date End Date Peggy Nazario MD [address] [place] [address] PCP - ACO Reach 01/05/23 Hannah Brian MD [address] [place] [address] PCP - General Family Medicine 11/03/23 Electronic Calibration Technician Relationship Specialty Start Date End Date Peggy Nazario MD [address] [place] [address] PCP - ACO Reach 01/05/23 Hannah Brian MD [address] [place] [address] PCP - General Family Medicine 11/03/23 Electronic Calibration Technician Relationship Specialty Start Date End Date Peggy Nazario MD [address] [place] [address] PCP - ACO Reach 01/05/23 Hannah Brian MD [address] [place] [address] PCP - General Family Medicine 11/03/23 Electronic Calibration Technician Relationship Specialty Start Date End Date Peggy Nazario MD [address] [place] [address] PCP - ACO Reach 01/05/23 Hannah Brian MD [address] [place] [address] PCP - General Family Medicine 11/03/23 Electronic Calibration Technician Relationship Specialty Start Date End Date Peggy Nazario MD [address] [place] [address] PCP - ACO Reach 01/05/23 Peggy Nazario MD [address] [place] [address] PCP - General Family Medicine 02/08/23 11/02/23 Electronic Calibration Technician Relationship Specialty Start Date End Date Peggy Nazario MD [address] [place] [address] PCP - ACO Reach 01/05/23 Hannah Brian MD [address] [place] [address] PCP - General Family Medicine 11/03/23 Electronic Calibration Technician Relationship Specialty Start Date End Date Peggy Nazario MD [address] [place] [address] PCP - ACO Reach 01/05/23 Hannah Brian MD [address] [place] [address] PCP - General Family Medicine 11/03/23 Electronic Calibration Technician Relationship Specialty Start Date End Date Peggy Nazario MD [address] [place] [address] PCP - ACO Reach 01/05/23 Hannah Brian MD [address] [place] [address] PCP - General Family Medicine 11/03/23 Electronic Calibration Technician Relationship Specialty Start Date End Date Peggy Nazario MD [address] [place] [address] PCP - ACO Reach 01/05/23 Hannah Brian MD [address] [place] [address] PCP - General Family Medicine 11/03/23 Electronic Calibration Technician Relationship Specialty Start Date End Date Peggy Nazario MD [address] [place] [address] PCP - ACO Reach 01/05/23 Hannah Brian MD [address] [place] [address] PCP - General Family Medicine 11/03/23 Electronic Calibration Technician Relationship Specialty Start Date End Date Peggy Nazario MD [address] [place] [address] PCP - ACO Reach 01/05/23 Hannah Brian MD [address] [place] [address] PCP - General Family Medicine 11/03/23 Electronic Calibration Technician Relationship Specialty Start Date End Date Peggy Nazario MD [address] [place] [address] PCP - ACO Reach 01/05/23 Hannah Brian MD [address] [place] [address] PCP - General Family Medicine 11/03/23 Electronic Calibration Technician Relationship Specialty Start Date End Date Peggy Nazario MD [address] [place] [address] PCP - ACO Reach 01/05/23 Hannah Brian MD [address] [place] [address] PCP - General Family Medicine 11/03/23 Electronic Calibration Technician Relationship Specialty Start Date End Date Peggy Nazario MD [address] [place] [address] PCP - ACO Reach 01/05/23 Hannah Brian MD [address] [place] [address] PCP - General Family Medicine 11/03/23 Electronic Calibration Technician Relationship Specialty Start Date End Date Peggy Nazario MD [address] [place] [address] PCP - ACO Reach 01/05/23 Hannah Brian MD [address] [place] [address] PCP - General Family Medicine 11/03/23 Source Comments (unrecognize d section and content) In the event this informatio n is protected by the Federal Confidentiality of Alcohol and Drug Abuse Patient Records regulations: The Federal rules restrict any use of the information to criminally investigate or prosecute any alcohol or drug abuse patient.[facility] HealthIn the event this information is protected by the Federal Confidentiality of Alcohol and Drug Abuse Patient Records regulations: The Federal rules restrict any use of the information to criminally investigate or prosecute any alcohol or drug abuse patient.[facility] HealthIn the event this information is protected by the Federal Confidentiality of Alcohol and Drug Abuse Patient Records regulations: The Federal rules restrict any use of the information to criminally investigate or prosecute any alcohol or drug abuse patient.[facility] HealthIn the event this information is protected by the Federal Confidentiality of Alcohol and Drug Abuse Patient Records regulations: The Federal rules restrict any use of the information to criminally investigate or prosecute any alcohol or drug abuse patient.[facility] HealthIn the event this information is protected by the Federal Confidentiality of Alcohol and Drug Abuse Patient Records regulations: The Federal rules restrict any use of the information to criminally investigate or prosecute any alcohol or drug abuse patient.[facility] HealthIn the event this information is protected by the Federal Confidentiality of Alcohol and Drug Abuse Patient Records regulations: The Federal rules restrict any use of the information to criminally investigate or prosecute any alcohol or drug abuse patient.[facility] HealthIn the event this information is protected by the Federal Confidentiality of Alcohol and Drug Abuse Patient Records regulations: The Federal rules restrict any use of the information to criminally investigate or prosecute any alcohol or drug abuse patient.[facility] HealthIn the event this information is protected by the Federal Confidentiality of Alcohol and Drug Abuse Patient Records regulations: The Federal rules restrict any use of the information to criminally investigate or prosecute any alcohol or drug abuse patient.[facility] HealthIn the event this information is protected by the Federal Confidentiality of Alcohol and Drug Abuse Patient Records regulations: The Federal rules restrict any use of the information to criminally investigate or prosecute any alcohol or drug abuse patient.[facility] HealthIn the event this information is protected by the Federal Confidentiality of Alcohol and Drug Abuse Patient Records regulations: The Federal rules restrict any use of the information to criminally investigate or prosecute any alcohol or drug abuse patient.[facility] HealthIn the event this information is protected by the Federal Confidentiality of Alcohol and Drug Abuse Patient Records regulations: The Federal rules restrict any use of the information to criminally investigate or prosecute any alcohol or drug abuse patient.[facility] HealthIn the event this information is protected by the Federal Confidentiality of Alcohol and Drug Abuse Patient Records regulations: The Federal rules restrict any use of the information to criminally investigate or prosecute any alcohol or drug abuse patient.[facility] HealthIn the event this information is protected by the Federal Confidentiality of Alcohol and Drug Abuse Patient Records regulations: The Federal rules restrict any use of the information to criminally investigate or prosecute any alcohol or drug abuse patient.[facility] HealthIn the event this information is protected by the Federal Confidentiality of Alcohol and Drug Abuse Patient Records regulations: The Federal rules restrict any use of the information to criminally investigate or prosecute any alcohol or drug abuse patient.[facility] HealthIn the event this information is protected by the Federal Confidentiality of Alcohol and Drug Abuse Patient Records regulations: The Federal rules restrict any use of the information to criminally investigate or prosecute any alcohol or drug abuse patient.[facility] Reason for Visit (unrecogniz ed section and content) Reason Comments Insurance Inquiry Reason Comments Med Refill Reason Comments Medication Problem Reason Comments Follow Up Reason Comments Consult Reason Comments Results Reason Comments Cystoscopy-1 Reason Comments Patient Update Specialty Diagnoses / Procedures Referred By Marietta t Referred To Contact HOSP INPATIENT Diagnoses Decompensated heart failure (HCC) Mitral valve regurgitation due to cardiomyopathy (HCC) Decompensated heart failure (HCC) Procedures [address] [place] [address] IP/OBS CARE HIGH MDM 75 MINUTES MEDICATION MANAGEMENT CONSULTS [facility] [address] [place] [address] Referral ID Status Reason Start Date Expiration Date Visits Re quested Visits Authorized [id number] 1 Reason Comments Refill Request Reason Comments Follow Up Reason Comments Cystoscopy-1 Patient Education Reason Comments Gynecologic Exam Medicare off year. P: MIR SHEFFIELD 1986HRT: NoneLast pap 07-24-23 neg.[place] 12[place] [facility] [place] sure when she can do it d/t cardiac issues.Denies breast, urinary, or bowel concerns. Reason Comments Urinary Frequency Reason Onset Date Comments Med Refill 09/20/2024 Reason Comments Follow-up Reason Comments Nausea Cough Conjunctivitis Reason Comments Right Flank Pain Urinary Frequency dysuria Reason Onset Date Comments Med Refill 01/13/2025 Reason Comments ER Follow-up Reason Comments Immunizations Declines at this juan carlos e UTI Inactive Administered Medications - up to 3 [...] BE BASED ON THE PRIMARY CLINICAL RECORDS. [employer] provides no warranty or guarantee of the accuracy or completeness of information in this document.
[2025-04-10 06:58] LABS: Glucose Urine UA NEGATIVE (NEGATIVE)
--- NOTE | 2025-04-10 07:31 | ECG_ITS ---
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
[2025-04-10] MEDS: FAMOTIDINE/PF 20 MG/2 ML VIAL IV (07:40)
[2025-04-10 07:53] LABS: Hematocrit 38.2 % (36.0-48.0); Hemoglobin 12.4 g/dL (12.0-16.0); Immature Granulocytes Abs Auto 0.01 10^3/uL (0.00-0.03); Immature Granulocytes Pct Auto 0.2 % (0.0-0.5); Lymphocytes Absolute Auto 1.1 10^3/uL (1.2-3.8); Mean Corpuscular HGB Conc 32.5 g/dL (29.9-35.2); Mean Corpuscular Hemoglobin 30.2 pg (26.7-34.0); Mean Corpuscular Volume 93.2 fL (81.0-99.0); Platelet Count 172 10^3/uL (150-450); Red Blood Count 4.10 10^6/uL (4.20-5.40); White Blood Count 6.5 10^3/uL (4.0-11.0)
[2025-04-10 08:09] LABS: Alanine Aminotransferase 39 U/L (14-59); Albumin Globulin Ratio 1.1; Albumin Level 3.4 g/dL (3.4-5.0); Alkaline Phosphatase 64 U/L (46-116); Anion Gap 12.2; Aspartate Amino Transferase 32 U/L (15-37); Blood Urea Nitrogen 10.0 mg/dL (7.0-18.0); Calcium 9.2 mg/dL (8.5-10.1); Carbon Dioxide 26.7 mmol/L (21.0-32.0); Chloride 106 mmol/L (98-107); Estimated GFR (African America >60 (>=60 mL/min/1.73m^2); Estimated GFR (Non-African Ame 51 (>=60 mL/min/1.73m^2); Globulin 3.1 g/dL; Glucose 106 mg/dL (74-106); Potassium 3.9 mmol/L (3.5-5.1); Sodium 141 mmol/L (136-145); Total Protein 6.5 g/dL (6.4-8.2)
--- NOTE | 2025-04-10 08:36 | CT_ITS ---
The [address] [address] Patient Name: HARJIT ULLOA MRN: [id number] date: 1950 Sex: F Assigned Patient Location: ER Current Patient Location: .[facility] Accession/Order Number: [id number] Exam Date: 04/10/2025 08:44 Report Date: 04/10/2025 10:13 At the request of: ANTHONY CHILDERS MD Procedure: CT abdomen pelvis wo con CT ABDOMEN AND PELVIS WITHOUT CONTRAST CLINICAL DATA: Low abdominal pain, dysuria and diarrhea. COMPARISON: None Spiral images were obtained through the abdomen and pelvis without contrast. This CT exam was performed using one or more following dose reduction techniques: Automated exposure control, adjustment of the mA and/or kV according to patient size, or use of iterative reconstruction technique. Limited cuts through the lung bases show cardiomegaly. There is slight interstitial thickening and mild failure is not excluded. There is also minor atelectasis or scarring. No calcified gallstones are identified. The liver, spleen and pancreas show no acute findings. There is slight thickening of the right adrenal limbs. No renal calculi are noted. There are small hypodense renal nodules bilaterally including in the parapelvic region, greater on the left. These may be cysts. There is a tiny hypodense nodule at the midpole on the right that may be a hemorrhagic cyst. No hydronephrosis is seen. No ureteral dilatation or stones are noted. There is mild atherosclerotic plaque at the aorta and iliac arteries. No enlarged lymph nodes or ascites are seen. There are normal caliber small bowel loops. Mild stool is visualized along the colon. There is slight levoscoliotic curvature and degenerative changes of the spine. There is bilateral L5 spondylolysis with minimal associated L5 spondylolisthesis. Images through the pelvis show no dilated small bowel. The appendix is not well seen though there are no secondary signs of appendicitis. There is stool at the distal colon. There is a sigmoid anastomosis. No diverticular disease is noted. The uterus is surgically absent. There is a right adnexal cyst measuring approximately 3.4 cm in size. The urinary bladder is not well-distended however no obvious abnormalities are seen. There is no ascites. CT/CT abdomen pelvis wo con IMPRESSION: CARDIOMEGALY AND MILD PARENCHYMAL CHANGES, DESCRIBED. SUSPECTED SIMPLE AND HEMORRHAGIC RENAL CYSTS. NO BOWEL OR URINARY TRACT OBSTRUCTION. RIGHT ADNEXAL CYST. NO OTHER ACUTE FINDINGS. Impression dictated by: Stephanie Barnes M.D. 04/10/2025 10:13 AM Dictation Location: [place] [address] Electronically authenticated by: [id number] Y Date: 04/10/2025 10:13
[2025-04-10] MEDS: KETOROLAC TROMETHAMINE 30 MG/ML VIAL 15 MG IVP (08:53)
[2025-04-10] MEDS: DICYCLOMINE HCL 20 MG/2 ML VIAL IM (08:53)
[2025-04-10] MEDS: 0.9 % SODIUM CHLORIDE 1,000 ML 500 ML IV (08:53)
--- NOTE | 2025-04-10 10:45 | ED.FEMALEGU1 ---
HPI - Female Genitourinary General Chief complaint: Urogenital-Female Stated complaint: DIARRHEA Time Seen by Provider: 04/10/25 06:09 Source: patient Mode of arrival: walk-in History of Present Illness HPI Narrative: The patient is very well-known to us she is presenting to us today with abdominal pain that started after she thought that she ate a bad fish sandwich, she thought that she did have also a constipation and she took at the same time of prune juice, the patient started after that having crampy abdominal pain and diarrhea. Nonbloody diarrhea was noted in the addition to no fever and no vomiting but the patient had nausea Patient presented to her primary care doctor almost 3 days ago when she was started on antibiotic Cipro and Flagyl which she thinks that her symptoms got worse after starting those specially that the patient has been taking the antibiotic due to stomach because she thought this is the way she should be taking them The patient is complaining right now suprapubic crampy abdominal pain that get better whenever she goes to the bathroom and have a bowel movement also the patient have no burning with urination no frequency no urgency Related Data Home Medications ?Medication ?Instructions ?Recorded ?Confirmed atorvastatin 40 mg tablet 40 mg PO .once daily 10/15/23 04/10/25 lorazepam 0.5 mg tablet 0.5 mg PO TID PRN anxiety 10/15/23 04/10/25 spironolactone 25 mg tablet 12.5 mg PO .once daily 10/15/23 04/10/25 apixaban 5 mg tablet (Eliquis) 5 mg PO BID 06/01/24 04/10/25 carvedilol 6.25 mg tablet 6.25 mg PO BID 01/19/25 04/10/25 Previous Rx's ?Medication ?Instructions ?Recorded dicyclomine 20 mg tablet 20 mg PO BID PRN abdominal pain 04/10/25 #14 tabs ondansetron 4 mg disintegrating 4 mg PO Q8H PRN nausea and 04/10/25 tablet vomiting 24 hours #3 tabs pantoprazole 40 mg tablet,delayed 40 mg PO DAILY #30 tabs 04/10/25 release (Protonix) Allergies Allergy/AdvReac Type Severity Reaction Status Date / Time meperidine (From Demerol) Allergy Intermediate Agitated Verified 04/10/25 06:47 Review of Systems ROS Status of ROS 10 or more systems reviewed and unremarkable except as noted in history and below PFSH PFSH Social History Smoking status: Former smoker Little interest or pleasure in doing things: not at all Feeling down, depressed, or hopeless: not at all Exam Narrative Exam Narrative: Nurses notes and vital signs reviewed and patient is not hypoxic. General: Well-appearing and in no apparent distress. Skin: Warm, dry, no pallor noted. No rash. Head: Normocephalic, atraumatic. Neck: Supple, non-tender. Eye: Pupils are equal, round and EOMI. No scleral icterus. Ears, Nose, Mouth, and Throat: TM are clear, no nasal mucosal hypertrophy. Oral mucosa is moist, no posterior oropharynx erythema, uvula is mid-line Cardiovascular: Regular Rate and Rhythm without murmur, gallop or rub. Respiratory: No accessory muscle use or respiratory distress. Lungs are clear to auscultation, no wheezing, rales or rhonchi Chest Wall: no tenderness Back: No midline thoracic or lumbar vertebral tenderness. No CVA tenderness Musculoskeletal: normal ROM, no calf or popliteal tenderness, no lower extremity edema/swelling GI: Abdomen is soft, non-distended. Normal bowel sounds. The have suprapubic discomfort that is all superficial palpation with no tenderness elicited on deep palpation No tenderness to palpation. No rebound, guarding, or rigidity noted. Neurological: A&O x4. No cranial nerve dysfunction observed. Constitutional Vital Signs, click to edit/add: Last Vital Signs Temp 97.7 F 04/10/25 06:38 Pulse 70 04/10/25 08:20 Resp 15 04/10/25 08:20 BP 162/83 H 04/10/25 08:01 Pulse Ox 100 04/10/25 08:20 O2 Del Method Room Air 04/10/25 06:38 Course Vital Signs Vital signs: Vital Signs Temperature 97.7 F 04/10/25 06:38 Pulse Rate 74 04/10/25 06:38 Respiratory Rate 16 04/10/25 06:38 Blood Pressure 171/92 H 04/10/25 06:38 Pulse Oximetry 100 04/10/25 06:38 Oxygen Delivery Method Room Air 04/10/25 06:38 Temperature 97.7 F 04/10/25 06:38 Pulse Rate 70 04/10/25 08:20 Respiratory Rate 15 04/10/25 08:20 Blood Pressure 162/83 H 04/10/25 08:01 Pulse Oximetry 100 04/10/25 08:20 Oxygen Delivery Method Room Air 04/10/25 06:38 MDM - Female Genitourinary MDM Narrative Medical decision making narrative: The patient EKG showing paced rhythm with a heart rate of [address] elevation or depression The patient presented to us with typical symptoms of gastroenteritis the patient was just started antibiotic 3 days ago and the diarrhea got worse after that which could be secondary to the antibiotics CT of the abdomen and pelvis showed no acute finding and the patient also had a urinalysis CBC and chemistry that showed no acute significant pathology except for mild elevation of the creatinine Patient provided with IV fluid in addition to Bentyl and Pepcid in the ER discharged home with Protonix and Zofran The patient instructed to stop taking the antibiotic because that could be the reason for her increasing symptoms mentioned the fact that I could not find the reason for the antibiotic at the moment specially that the patient have no diverticulitis and she had no UTI The patient will monitor her symptoms at home in case of worsening she will come back to the ER also the urine culture in case positive the patient will be called for the result The patient right now have no significant symptoms except for the crampy abdominal pain associated with the diarrhea which could be secondary to gastroenteritis the patient also was instructed not to use more than prune juice as well The patient is to follow up with primary care physician in next 2-3 days or to return to the emergency department should any of the signs or symptoms worsen or new symptoms develop. The patient agrees with the following Diagnosis and Treatment plan and the patient will be discharged home. Lab Data Labs: Lab Results 04/10/25 04/10/25 Range/Units 06:41 07:43 WBC 6.5 (4.0-11.0) 10^3/uL RBC 4.10 L (4.20-5.40) 10^6/uL Hgb 12.4 (12.0-16.0) g/dL Hct 38.2 (36.0-48.0) % MCV 93.2 (81.0-99.0) fL MCH 30.2 (26.7-34.0) pg MCHC 32.5 (29.9-35.2) g/dL RDW 13.5 (11.0-15.0) % Plt Count 172 (150-450) 10^3/uL MPV 10.3 (9.5-13.5) fL Neut % (Auto) 73.0 (43.0-75.0) % Lymph % (Auto) 16.9 L (20.5-60.0) % [place] % (Auto) 8.8 (1.7-12.0) % Eos % (Auto) 0.8 L (0.9-7.0) % Baso % (Auto) 0.3 (0.2-2.0) % Neut # (Auto) 4.8 (1.4-6.5) 10^3/uL Lymph # (Auto) 1.1 L (1.2-3.8) 10^3/uL [place] # (Auto) 0.6 (0.3-0.8) 10^3/uL Eos # (Auto) 0.1 (0.0-0.7) 10^3/uL Baso # (Auto) 0.0 (0.0-0.1) 10^3/uL Abs Immat Gran (auto) 0.01 (0.00-0.03) 10^3/uL Imm/Tot Granulo (auto) 0.2 (0.0-0.5) % Sodium 141 (136-145) mmol/L Potassium 3.9 (3.5-5.1) mmol/L Chloride 106 (98-107) mmol/L Carbon Dioxide 26.7 (21.0-32.0) mmol/L Anion Gap 12.2 BUN 10.0 (7.0-18.0) mg/dL Creatinine 1.04 H (0.55-1.02) mg/dL Est GFR ( Amer) >60 (>=60 mL/min/1.73m^2) Est GFR (Non-Af Amer) 51 L (>=60 mL/min/1.73m^2) BUN/Creatinine Ratio 9.6 Glucose 106 (74-106) mg/dL Calcium 9.2 (8.5-10.1) mg/dL Total Bilirubin 0.9 (0.2-1.0) mg/dL AST 32 (15-37) U/L ALT 39 (14-59) U/L Alkaline Phosphatase 64 (46-116) U/L Troponin I High Sens 16.5 (4.0-51.3) pg/mL Total Protein 6.5 (6.4-8.2) g/dL Albumin 3.4 (3.4-5.0) g/dL Globulin 3.1 g/dL Albumin/Globulin Ratio 1.1 Urine Color Lt. yellow (YELLOW) Urine Clarity Clear (CLEAR) Urine pH 7.0 (5.0-9.0) Ur Specific [place] 1.010 (1.005-1.025) Urine Protein Negative (NEG/TRACE) mg/dL Urine Glucose (UA) Negative (NEGATIVE) mg/dL Urine Ketones Negative (NEGATIVE) mg/dL Urine Occult Blood Negative (NEGATIVE) Urine Nitrite Negative (NEGATIVE) Urine Bilirubin Negative (NEGATIVE) Urine Urobilinogen 0.2 (0.2-1.0) EU/dL Ur Leukocyte Esterase Trace A (NEGATIVE) Discharge Plan Discharge Chief Complaint: Urogenital-Female Clinical Impression: Gastroenteritis Patient Disposition: Home, Self-Care Time of Disposition Decision: 10:45 Condition: Good Prescriptions / Home Meds: New dicyclomine 20 mg tablet 20 mg PO BID PRN (Reason: abdominal pain) Qty: 14 0RF pantoprazole [Protonix] 40 mg tablet,delayed release (DR/EC) 40 mg PO DAILY Qty: 30 0RF ondansetron 4 mg tablet,disintegrating 4 mg PO Q8H PRN (Reason: nausea and vomiting) 1 Days Qty: 3 0RF Discontinued famotidine 40 mg tablet 40 mg PO metronidazole 500 mg tablet 500 mg PO ciprofloxacin HCl 250 mg tablet 250 mg PO No Action Eliquis 5 mg tablet 5 mg PO BID carvedilol 6.25 mg tablet 6.25 mg PO BID atorvastatin 40 mg tablet 40 mg PO .once daily spironolactone 25 mg tablet 12.5 mg PO .once daily lorazepam 0.5 mg tablet 0.5 mg PO TID PRN (Reason: anxiety) Print Language: [place] Instructions: Gastroenteritis (DC) Additional Instructions: Please take all the medication with food not in empty stomach Referrals: TANESHA HOOVER [Primary Care Provider] - 1 week
[2025-04-10] MEDS: ONDANSETRON 4 MG RAPDIS TABLET SL (10:54)
== END 2025-04-10 11:04 | disposition home or self-care (01) ==
PROVIDERS: Emergency Medicine; Emergency Provider Emergency Medicine; PCP Student in an Organized Health Care Education/Training Program
DX: K52.9 Noninfective gastroenteritis and colitis, unspecified (principal)
CPT/HCPCS: 36415; 74176; 80053; 81003; 84484; 85025; 93005; 96372; 96374; 96375; 99285; J0500; J1885; J3490; Q0162

== ENCOUNTER 2025-04-10 16:38 | Emergency (ER) | payer MEDICARE, BC, SELFPAY ==
--- OUTSIDE RECORDS SUMMARY | 2025-04-10 16:49 | XMS_ITS | CCD ---
Author Organization [facility] Care Team Providers Care Meat Apprentice Name Role Phone Peggy Nazario Primary Care Physician [phone] Micheline Sorto MD Unavailable Johan Henriquez MD Unavailable [phone] Peggy Nazario Primary Care Provider [phone] Peggy Nazario MD Unavailable Peggy Nazario MD Primary Care Provider [phone] Alea Harley MD Unavailable Alea Harley MD Unavailable [phone] Hannah Brian Primary Care Physician [phone] Peggy Nazario Primary Care Provider [phone] Johan HENRIQUEZ Admitting Unavailable Johan HENRIQUEZ Consulting [...] Unava ilable Eb Goff Consulting Unavaila ble [facility] [place] XXXX Consulting Unavailable Koby Masterson Attending [...] Attending Unavailable ALEA HARLEY Referring Unavailable NAZARIO, [facility] Primary Care Unavailabl e VASAVADA, RAPHAEL P Referring Unavailable VASAVADA, RAPHAEL P Attending Unavailable NAZARIO, [facility] Primary Care Unavailabl e NAZARIO, [facility] Primary Care Unavailabl e HAMMALEA GAITAN F Referring Unavailable NAZARIO, [facility] Primary Care Unavailabl e NITHYA, MICHELINE Referring Unavailable NAZARIO, [facility] Primary Care Unavailabl e VASAVADA, RAPHAEL P Attending Unavailable SELF Referring Unavailable ALEA HARLEY F Referring Unavailable NAZARIO, [facility] Primary Care Unavailabl e ANA RIVAS Attending Unavailable NAZARIO, [facility] Primary Care Unavailabl e NAZARIO, [facility] Primary Care Unavailabl e NITHYA, MICHELINE Attending Unavailable NITHYA, MICHELINE Referring Unavailable YECENIA GLEZ Admitting Unavailable NAZARIO, [facility] Primary Care Unavailabl e YECENIA GLEZ S Attending Unavailable NAZARIO, [facility] Primary Care Unavailabl e NITHYA, MICHELINE Referring Unavailable NITHYA, MICHELINE Referring Unavailable NAZARIO, [facility] Primary Care Unavailabl e NITHYA, MICHELINE Referring Unavailable PRIETO VILLALBA Attending Unavailable NAZARIO, [facility] Primary Care Unavailabl e NITHYA, MICHELINE Referring Unavailable NAZARIO, [facility] Primary Care Unavailabl e NAZARIO, [facility] Primary Care Unavailabl e VASAVADA, RAPHAEL P Referring Unavailable VASAVADA, RAPHAEL P Attending Unavailable NITHYA, MICHELINE Referring Unavailable ALEA HARLEY F Attending Unavailable NAZARIO, [facility] Primary Care Unavailabl e NAZARIO, [facility] Primary Care Unavailabl e VASAVADA, RAPHAEL P Attending Unavailable SELF Referring Unavailable Snehal MCMAHON, Hannah De Leon Primary Care Provider Peggy Nazario MD Primary Care Provider [phone] Hannah Brian MD Primary Care Provider PATTY [...] [cephalexin] Drug Allergy 3 GI intolerance, Unknown [facility] (20 sources) Egg; Translations: [Eggs] Food allergy Unknown (qualifier value) [facility] (20 sources) Meperidine; Translations: [meperidine] Drug Allergy 0 Syncope (disorder), Other: See Comments [facility] (20 sources) Morphine; Translations: [morphine] Drug Allergy 3 Unknown [facility] (20 sources) Sulfonamides (Antibiotic); Translations: [sulfa drugs] Drug allergy Nausea [facility] (2 sources) Aspirin; Translations: [ASPIRIN] Drug Allergy 0 Other: See Comments [facility] (9 sources) Latex; Translations: [LATEX] Drug Intolerance 3 Rash, Hives [facility] (20 sources) Aluminum aspirin Drug Allergy 0 [facility] (20 sources) Amoxicillin; Translations: [AMOXICILLIN] Drug Allergy 3 Diarrhea [facility] (20 sources) Erythromycin; Translations: [ERYTHROMYCIN] Drug Allergy 3 Unknown [facility] (20 sources) Latex Propensity to adverse reactions 3 Hives, Rash [facility] (20 sources) Meperidine Drug Allergy 3 Unknown [facility] (20 sources) Sulfonamides (Antibiotic) Drug Allergy 3 GI intolerance, Intolerance [facility] (20 sources) WHEAT DEXTRIN; Translations: [WHEAT BRAN] Drug Allergy 3 [facility] (20 sources) WHEAT DEXTRIN Drug Allergy 3 [facility] (5 sources) Eggs Or Egg-Derived Products Drug Allergy 3 [facility] (15 sources) egg extract; Translations: [EGG] Drug Allergy 4 Intolerance, GI Upset [facility] (1 source) Meperidine; Translations: [Demerol HCl] Drug Allergy [facility] (2 sources) Sulfonamides (Antibiotic); Translations: [SULFA (SULFONAMIDE ANTIBIOTICS)] Propensity to adverse reactions to drug (disorder) 3 [facility] (20 sources) empagliflozin; Translations: [EMPAGLIFLOZIN] Drug Allergy 4 Angioedema [facility] Work Phone: (20 sources) Egg-Derived Products Drug Allergy 3 [facility] (20 sources) Amiodarone; Translations: [AMIODARONE] Drug Allergy 4 Nausea And Vomiting [facility] (20 sources) Valsartan; Translations: [VALSARTAN] Propensity to adverse reactions 4 [facility] (1 source) EGG DERIVED; Translations: [EGG DERIVED] Propensity to adverse reactions to drug (disorder) 3 [facility] Repository Medications Current Medications Medication Drug Class(es) Dates Sig (Normalized) Sig (Original) amoxicillin 500 mg / clavulanate 125 mg oral tablet (2 sources) Penicillin-class Antibacterial Start: 07-19-2023 End: 08-02-2023 Augmentin 500 mg-125 mg Tab 1 tab(s), Oral, q24hr for 14 day(s), 14 tab(s), Refill(s) 0, [facility] [place] [facility] #[id number], 165, cm, 07/19/23 15:21:00 EST, [...] BID, # 60 tab(s), Refills(s) 0, Pharmacy: [facility] #[id number], 165, cm, 07/02/23 21:30:00 EST, Height/Length Dosing, 55.7, kg, 07/02/23 21:30:00 EST, Weight Dosing Start Date: 07/11/23 Status: Ordered Start: 07-11-2023 take 1 tablet by antonio th twice daily Eliquis 5 mg oral tablet 5 mg = 1 tab(s), Oral, BID, # 60 tab(s), Refills(s) 0, [id number], 165, cm, 07/02/23 21:30:00 EST, Height/Length Dosing, 55.7, kg, 07/02/23 21:30:00 EST, Weight Dosing Start Date: 07/11/23 Status: Ordered Start: 07-11-2023 take 1 tablet by antonio th twice daily Eliquis 5 mg oral tablet 5 mg = 1 tab(s), Oral, BID, # 60 tab(s), Refills(s) 0, Pharmacy: [facility] #[id number], 165, cm, 07/02/23 21:30:00 EST, Height/Length Dosing, [...] day(s), # 28 tab(s), Refills(s) 0, Pharmacy: [facility] #37, 165, cm, 10/05/23 18:07:00 EST, Height/Length [...] completed, # 2 tab(s), Refills(s) 0, Pharmacy: [facility] #[id number], 165, cm, 04/26/23 15:23:00 EDT, Height/Length Dosing, 54.7, kg, 04/26/23 15:23:00 EDT, Weight Dosing Start Date: 04/26/23 Status: Ordered Start: 10-14-2022 take 1 tablet by antonio once daily Cipro 500 mg Tab 500 mg = 1 tab(s), Oral, Daily, Take 1 tablet the day before the procedure and 1 tablet after the procedure, # 2 tab(s), Refills(s) 0, Pharmacy: [facility], 165, cm, 10/03/22 14:34:00 EST, Height/Length Dosing, 54.7, kg, 10/03/22 14:34:00 E... Start Date: 10/14/22 Status: Ordered Start: 03-03-2022 take 1 tablet by antonio once daily Cipro 500 mg Tab 500 mg = 1 tab(s), Oral, As Directed, Take 1 tablet day before procedure, and then 1 tablet day of procedure after procedure, # 2 tab(s), Refills(s) 0, Pharmacy: [facility], 165, cm, 03/03/22 10:04:00 EDT, Height/Length Dosing, 54, kg, 2... Start Date: 03/03/22 Status: Ordered dexamethasone 1 mg/ml / neomycin 3.5 mg/ml / polymyxin b 29922 unt/ml ophthalmic suspension (20 sources) Aminoglycoside Antibacterial, Polymyxin-class Antibacterial, Corticosteroid Start: 10-30-2024 ivznijmd-dsfishadn-gumPOZCLb sone (Maxitrol) 3.5-56295-4.1 ophthalmic suspension 10/30/2024 Active Start: 10-30-2024 take 1 drop(s) into the eye(s) four times daily kgrxjchx-aicpgyaor-dflZDMJYouksy (Maxitr ol) 3.5-53924-1.1 ophthalmic suspension INSTILL 1 DROP into affected eye FOUR TIMES DAILY FOR 14 DAYS 10/30/2024 Active dicyclomine hydrochloride 10 mg oral capsule (1 source) Anticholinergic Start: 07-01-2023 End: 07-08-2023 take 1 capsule by mouth four times daily Bentyl 10 mg Cap 10 mg = 1 cap(s), Oral, QID, X 7 day(s), # 14 cap(s), Refills(s) 0, Pharmacy: [facility] #[id number], 165, cm, 06/30/23 19:37:00 EST, Height/Length Dosing, [...] day (at bedtime), 42.5 gm, Refill(s) 6, [facility], 165.1, cm, 01/28/23 21:34:00 EDT, Height/Length Dosing, 54.5, kg, 01/28/23 21:34:00 EDT, Weight Dosing Start Date: 03/20/23 Status: Ordered Start: 03-03-2022 estradiol 0.1 mg/g vaginal cream 1 gm, Vaginal, MonFri, # 42.5 gm, Refills(s) 6, Pharmacy: [facility], 165, cm, 03/03/22 [...] MonFri, # 42.5 gm, Refills(s) 6, Pharmacy: [facility], 165, cm, 02/23/21 [...] MonFri, # 42.5 gm, Refills(s) 6, Pharmacy: [facility], 165, cm, 03/03/22 10:04:00 EDT, Height/Length Dosing, 54, kg, 03/03/22 10:04:00 EDT, Weight Dosing Start Date: 03/03/22 Status: Ordered Start: 02-26-2021 estradiol 0.1 mg/g vaginal cream 1 gm, Vaginal, MonFri, # 42.5 gm, Refills(s) 6, Pharmacy: [facility], 165, cm, 02/23/21 [...] day(s), # 100 mL, Refills(s) 0, Pharmacy: [facility] #37, 165, cm, 11/22/23 16:28:00 EDT, Height/Length [...] HFrEF (heart failure with reduced ejection fraction) ([facility]) take 1/2 tablet by mouth once daily [...] HFrEF (heart failure with reduced ejection fraction) ([facility]) take 1 tablet by mouth every day 90 tablet 12/22/2023 Active Comment on above: Take 1 tablet by antonio once daily. polyethylene glycol 3350 66145 mg powder for oral solution (20 sources) [...] Daily, # 255 gm, Refills(s) 0, Pharmacy: [facility] #[id number], 165, cm, 07/02/23 21:30:00 EST, Height/Length Dosing, [...] for 7 day(s), 5 mL, Refill(s) 0, [facility] #[id number], 165, cm, 12/24/21 17:41:00 EDT, Height/Length Dosing, 54, kg, 12/24/21 17:41:00 EDT, Weight Dosing Start Date: 12/24/21 Stop Date: 12/31/21 Status: Ordered Zofran ODT 4 mg Tab-Dis (12 sources) Start: 3 take 1 tablet by mouth every eight hours Zofran ODT 4 mg Tab-Dis 4 mg = 1 tab(s), Oral, q8hr, # 12 tab(s), Refills(s) 0, Pharmacy: [facility] #[id number], 165, cm, 06/30/23 19:37:00 EST, Height/Length Dosing, [...] Daily, # 60 tab(s), Refills(s) 0, Pharmacy: [facility] #[id number], 165, cm, 07/02/23 21:30:00 EST, Height/Length Dosing, [...] Coronary atherosclerosis; Translations: [Atherosclerotic heart disease of [place] coronary artery without angina pectoris] Onset: 3 [...] current use of drug therapy; Translations: [Other care home (current) drug therapy] Onset: 3 Episodic Other [...] sources) Long-term 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; Translations: [half-way (current) use of 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s] Onset: 01-09-2024 09-26-2023 [...] UA Negative Negative - 4(70) +++ mg/dL [facility] Blood, UA Negative Negative - 50 Pedro/mcL [facility] Clarity, UA Clear [facility] Color, UA Yellow [facility] Glucose, UA Negative Negative - 2000(110) ++++ mg/dL [facility] Ketones, UA Negative Negative - 160(16) ++++ mg/dL [facility] Leukocytes, UA Negative Negative - 500+++ Ghislaine/mcL [facility] Nitrite, UA Negative Negative - Positive [facility] pH, UA 6 5 - 9 [facility] Protein, UA Negative Negative - 2000(20) ++++ mg/dL [facility] Spec Grav, UA 1.005 1 - 1.03 [facility] Urobilinogen, UA 0.2 0.2 - 12 mg/dL [facility] 36on 04-02-2025 36 Patient called vik [...] for tricuspid valve. Florecita and Leonardo from [facility] rehab made aware. [facility] Office Visiton 03-31-2025 Follow-up visit [id number] ElifHarjit I 1950 Date Provider Department Center 03/31/2025 RAFAEL PEDERSEN [facility] Family History Problem Relation Age of Onset Coronary artery disease Mother Diabetes Mother Coronary artery disease Father Family Status - Relation Status Age at Mother Father Sister Brother Alive Level of Service:05643 HI OFFICE/OUTPATIENT ESTABLISHED MOD MDM 30 MIN [facility] 36on 02-12-2025 36 Increased to 6.25mg BID [facility] 36on 02-11-2025 36 Patient called reported that she ran out of her carvedilol, discussed with patient to start on Coreg 6.25 mg bid, I also discussed this plan with her primary dental assistant , patient will have to monitor her blood pressure at home. Yadiel Carmona MD PGY-5 buffer automatic [facility] Telephoneon 02-11-2025 Telephone [id number] Harjit Asencio I 1950 Provider Department [facility] Family History Problem Relation Age of Onset Coronary artery disease Mother Diabetes Mother Coronary artery disease Father Family Status - Relation Status Age at Mother Father Sister Brother Alive [facility] Follow-Upon 02-10-2025 Follow-Up [id number] Harjit Asencio I 1950 Provider Department [place] 02/10/2025 RAFAEL PEDERSEN C[facility] Family History Problem Relation Age of Onset Coronary artery disease Mother Diabetes Mother Coronary artery disease Father Family Status - Relation Status Age at Mother Father Sister Brother Alive Level of Service:27899 HI OFFICE/OUTPATIENT ESTABLISHED MOD MDM 30 MIN [facility] 36on 01-25-2025 36 Rafael, would it be ok for her to hold Eliquis for a few days with her recent MitraClip or does she need to continue and maybe reduce the dose? -Maybe we move forward with Watchman for her after you see her on 02/10? Normal [facility] 36 Rafael, would it be ok for her to hold Eliquis for a few days with her recent MitraClip or does she need to continue and maybe reduce the dose? -Maybe we move forward with Watchman for her after you see her on 02/10? Normal [facility] Follow-Upon 01-23-2025 Follow-Up [id number] Harjit Asencio I 1950 F Date Provider Department Center 01/23/2025 [facility] Family History Problem Relation Age of Onset Coronary artery disease Mother Diabetes Mother Coronary artery disease Father Family Status - Relation Status Age at Mother Father Sister Brother Alive Level of Service:78822 HI OFFICE/OUTPATIENT ESTABLISHED MOD MDM 30 MIN Reason for Visit and Comments: Valve Disorder [3372] Atrial Fibrillation [80] Normal [facility] 30on 01-15-2025 30 The patient [...] and maintained or improved Outcome: Progressing Normal [facility] BASIC METABOLIC PANELon 06-0 Anion gap [Moles/Vol] 13 mmol/L Normal 7-20 [facility] Comment on above: Performed By: #### L [id number] ####[facility] ([facility])[address] [place] [address] Calcium [Mass/Vol] 8.3 mg/dL Low 8.6-10.3 [facility] Comment on above: Performed By: #### L [id number] ####[facility] ([facility])[address] [place] [address] Chloride [Moles/Vol] 106 mmol/L Normal 98-107 [facility] Comment on above: Performed By: #### L [id number] ####[facility] ([facility])[address] [place] [address] CO2 [Moles/Vol] 19 mmol/L Low 21-31 [facility] Comment on above: Performed By: #### L [id number] ####[facility] ([facility])[address] [place] [address] Creatinine [Mass/Vol] 0.84 mg/dL Normal 0.60-1.20 [facility] Comment on above: Performed By: #### L [id number] ####[facility] ([facility])[address] [place] [address] GLOMERULAR FILTRATION RATE ML/MIN/1.73 SQ M.PREDICTED 72.0 mL/min/1.73m*2 Normal >60.0 [facility] Comment on above: Result Comment: [facility]???s estimated glomerular filtration rate (eGFR) [...] of individuals. Performed By: #### L [id number] ####[facility] ([facility])[address] [place] [address] Glucose [Mass/Vol] 123 mg/dL High 70-100 [facility] Comment on above: Performed By: #### L [id number] ####[facility] ([facility])[address] [place] [address] Potassium [Moles/Vol] 4.7 mmol/L Normal 3.5-5.1 [facility] Comment on above: Performed By: #### L [id number] ####[facility] ([facility])[address] [place] [address] Sodium [Moles/Vol] 133 mmol/L Low 136-145 [facility] Comment on above: Performed By: #### L [id number] ####[facility] ([facility])[address] [place] [address] Urea nitrogen [Mass/Vol] 16 mg/dL Normal 7-25 [facility] Comment on above: Performed By: #### L [id number] ####[facility] ([facility] [place] [address] UREA NITROGEN/CREATININE (MASS RATIO) IN SER/PLAS 19.0 Normal [facility] Comment on above: Performed By: #### L [id number] ####[facility] ([facility])[address] [place] [address] CBCon 01-15-2025 Erythrocyte distribution width (RBC) [Ratio] 13.4 % Normal 11.5-15.0 [facility] Comment on above: Performed By: #### L [id number] #### [facility] ([facility] [address] [place] [address] ERYTHROCYTE MEAN CORPUSCULAR HEMOGLOBIN CONCENTRATION (G/DL) BY AUTOMATED 30.1 g/dL Low 32.0-35.0 [facility] Comment on above: Performed By: #### L [id number] #### [facility] ([facility]) [address] [place] [address] Hematocrit (Bld) [Volume fraction] 45.2 % High 36.0-45.0 [facility] Comment on above: Performed By: #### L [id number] #### [facility] ([facility]) [address] [place] [address] Hemoglobin (Bld) [Mass/Vol] 13.6 g/dL Normal 12.0-15.0 [facility] Comment on above: Performed By: #### L [id number] #### [facility] ([facility]) [address] [place] [address] MCH (RBC) [Entitic mass] 30.4 pg Normal 27.0-33.0 [facility] Comment on above: Performed By: #### L [id number] #### [facility] ([facility]) [address] [place] [address] MCV (RBC) [Entitic vol] 100.9 fL High 82.0-98.0 [facility] Comment on above: Performed By: #### L [id number] #### [facility] ([facility]) [address] [place] [address] PLATELETS (10*3/UL) IN BLOOD AUTOMATED COUNT 176 10*3/uL Normal 150-400 [facility] Comment on above: Performed By: #### L [id number] #### [facility] ([facility]) [address] [place] [address] RBC (Bld) [#/Vol] 4.48 10*6/uL Normal 3.80-5.00 [facility] Comment on above: Performed By: #### L [id number] #### [facility] ([facility]) [address] [place] [address] WBC (Bld) [#/Vol] 12.19 10*3/uL High 4.00-10.60 [facility] Comment on above: Performed By: #### L [id number] #### [facility] ([facility]) [address] [place] [address] DSon 01-15-2025 DS Admission Admitted 01/14/2025 for [...] use. Cl (more content not included)... Normal [facility] 30on 01-14-2025 30 The patient [...] and behaviors that affect risk of falls [place] fall precautions as indicated by assessment Educate [...] and prevent overall improvement and discharge Normal [facility] 30 The patient is Moderately [...] and maintained or improved Outcome: Progressing Normal [facility] BASIC METABOLIC PANELon 06-0 Anion gap [Moles/Vol] 9 mmol/L Normal 7-20 [facility] Comment on above: Performed By: #### L [id number] #### [facility] ([facility]) [address] [place] [address] Calcium [Mass/Vol] 8.5 mg/dL Low 8.6-10.3 [facility] Comment on above: Performed By: #### L [id number] #### [facility] ([facility]) [address] [place] [address] Chloride [Moles/Vol] 107 mmol/L Normal 98-107 [facility] Comment on above: Performed By: #### L [id number] #### [facility] ([facility]) [address] [place] [address] CO2 [Moles/Vol] 26 mmol/L Normal 21-31 [facility] Comment on above: Performed By: #### L [id number] #### [facility] ([facility]) [address] [place] [address] Creatinine [Mass/Vol] 0.80 mg/dL Normal 0.60-1.20 [facility] Comment on above: Performed By: #### L [id number] #### [facility] ([facility]) [address] [place] [address] GLOMERULAR FILTRATION RATE ML/MIN/1.73 SQ M.PREDICTED 76.3 mL/min/1.73m*2 Normal >60.0 [facility] Comment on above: Result Comment: [facility]???s estimated glomerular filtration rate (eGFR) [...] individuals. Performed By: #### L [id number] #### [facility] ([facility]) [address] [place] [address] Glucose [Mass/Vol] 97 mg/dL Normal 70-100 [facility] Comment on above: Performed By: #### L [id number] #### [facility] ([facility]) [address] [place] [address] Potassium [Moles/Vol] 3.9 mmol/L Normal 3.5-5.1 [facility] Comment on above: Performed By: #### L [id number] #### [facility] ([facility]) [address] [place] [address] Sodium [Moles/Vol] 138 mmol/L Normal 136-145 [facility] Comment on above: Performed By: #### L [id number] #### [facility] ([facility]) [address] [place] [address] Urea nitrogen [Mass/Vol] 11 mg/dL Normal 7-25 [facility] Comment on above: Performed By: #### L [id number] #### [facility] ([facility]) [address] [place] [address] UREA NITROGEN/CREATININE (MASS RATIO) IN SER/PLAS 13.8 Normal [facility] Comment on above: Performed By: #### L [id number] #### [facility] ([facility]) [address] [place] [address] CBC WITH AUTO DIFFERENTIALon 01-14-2025 Basophils (Bld) [#/Vol] 0.03 10*3/uL Normal 0.00-0.20 [facility] Comment on above: Performed By: #### L [id number] #### [facility] ([facility]) [address] [place] [address] Basophils/100 WBC (Bld) 0.6 % Normal 0.0-1.0 [facility] Comment on above: Performed By: #### L [id number] #### [facility] ([facility]) [address] [place] [address] Eosinophils (Bld) [#/Vol] 0.07 10*3/uL Normal 0.00-0.50 [facility] Comment on above: Performed By: #### L [id number] #### [facility] ([facility]) [address] [place] [address] Eosinophils/100 WBC (Bld) 1.4 % Normal 0.0-6.0 [facility] Comment on above: Performed By: #### L [id number] #### [facility] [facility] ([facility]) [address] [place] [address] Erythrocyte distribution width (RBC) [Ratio] 13.4 % Normal 11.5-15.0 [facility] Comment on above: Performed By: #### L [id number] #### [facility] ([facility]) [address] [place] [address] ERYTHROCYTE MEAN CORPUSCULAR HEMOGLOBIN CONCENTRATION (G/DL) BY AUTOMATED 33.0 g/dL Normal 32.0-35.0 [facility] Comment on above: Performed By: #### L [id number] #### [facility] ([facility]) [address] [place] [address] Hematocrit (Bld) [Volume fraction] 35.8 % Low 36.0-45.0 [facility] Comment on above: Performed By: #### L [id number] #### [facility] ([facility]) [address] [place] [address] Hemoglobin (Bld) [Mass/Vol] 11.8 g/dL Low 12.0-15.0 [facility] Comment on above: Performed By: #### L [id number] #### [facility] ([facility]) [address] [place] [address] Immature granulocytes (Bld) [#/Vol] 0.02 10*3/uL Normal 0.00-0.20 [facility] Comment on above: Performed By: #### L [id number] #### [facility] ([facility]) [address] [place] [address] Immature granulocytes/100 WBC (Bld) 0.4 % Normal 0.0-1.0 [facility] Comment on above: Performed By: #### L [id number] #### [facility] ([facility]) [address] [place] [address] Lymphocytes (Bld) [#/Vol] 1.34 10*3/uL Normal 1.20-4.00 [facility] Comment on above: Performed By: #### L [id number] #### [facility] ([facility]) [address] [place] [address] Lymphocytes/100 WBC (Bld) 27.7 % Normal 20.0-45.0 [facility] Comment on above: Performed By: #### L [id number] #### [facility] ([facility]) [address] [place] [address] MCH (RBC) [Entitic mass] 31.1 pg Normal 27.0-33.0 [facility] Comment on above: Performed By: #### L [id number] #### [facility] ([facility]) [address] [place] [address] MCV (RBC) [Entitic vol] 94.2 fL Normal 82.0-98.0 [facility] Comment on above: Performed By: #### L [id number] #### [facility] ([facility]) [address] [place] [address] Monocytes (Bld) [#/Vol] 0.40 10*3/uL Normal 0.10-1.00 [facility] Comment on above: Performed By: #### L [id number] #### [facility] ([facility]) [address] [place] [address] Monocytes/100 WBC (Bld) 8.3 % Normal 5.0-12.0 [facility] Comment on above: Performed By: #### L [id number] #### [facility] ([facility]) [address] [place] [address] Neutrophils (Bld) [#/Vol] 2.98 10*3/uL Normal 1.60-7.60 [facility] Comment on above: Performed By: #### L [id number] #### [facility] ([facility]) [address] [place] [address] Neutrophils/100 WBC (Bld) 61.6 % Normal 40.0-72.0 [facility] Comment on above: Performed By: #### L [id number] #### [facility] ([facility]) [address] [place] [address] NRBC (PER 100 WBCS) BY AUTOMATED COUNT 0.0 % Normal 0 [facility] Comment on above: Performed By: #### L [id number] #### [facility] ([facility]) [address] [place] [address] PLATELETS (10*3/UL) IN BLOOD AUTOMATED COUNT 178 10*3/uL Normal 150-400 [facility] Comment on above: Performed By: #### L [id number] #### [facility] ([facility]) [address] [place] [address] RBC (Bld) [#/Vol] 3.80 10*6/uL Normal 3.80-5.00 [facility] Comment on above: Performed By: #### L [id number] #### [facility] ([facility]) [address] [place] [address] WBC (Bld) [#/Vol] 4.84 10*3/uL Normal 4.00-10.60 [facility] Comment on above: Performed By: #### L [id number] #### [facility] ([facility]) [address] [place] [address] HPon 01-14-2025 H&P reviewed. The patient was examined and there are no changes to the H&P. Normal [facility] POCT GLUCOSE METER UNSOLICIT ED RESULTSon 01-14-2025 Glucose [Mass/Vol] 92 mg/dL Normal 70-105 [facility] Comment on above: Order Comment: Waive d Testing in the ED is performed under the ED CLIA certificate #[id number]. Result Comment: [email or web address] [email or web address] Performed By: #### L [id number] #### [facility] ([employer]) [address] [place] [address] PROTIME-INRon 01-14-2025 INR IN PPP BY COAGULATION ASSAY 1.08 Normal 0.90-1.10 [facility] Comment on above: Result Comment: [...] 1995;[id number]. Performed By: #### L [id number] #### [facility] [employer]) [address] [place] [address] PROTHROMBIN TIME (PT) IN PPP BY COAGULATION ASSAY 14.0 Seconds Normal 12.3-14.8 [facility] Comment on above: Performed By: #### L [id number] #### [facility] [employer]) [address] [place] [address] TYPE AND SCREENon 01-14-2025 AB SCREEN Negative Normal [facility] Comment on above: Performed By: #### L [id number] #### [facility] , ABO group Nom (Bld) O Normal [facility] Comment on above: Performed By: #### L [id number] #### [facility] , RH TYPE IN BLOOD Positive Normal [facility] Comment on above: Performed By: #### L [id number] #### [facility] , Orders Onlyon 01-13-2025 Orders Only [id number] Claire Asencioyce I 1950 F Date Provider Department Center 01/13/2025 USMAN LOPEZ [facility] Medical C Family History Problem Relation Age of Onset Coronary artery disease Mother Diabetes Mother Coronary artery disease Father Family Status - Relation Status Age at Mother Father Sister Brother Alive [facility] Orders Onlyon 01-09-2025 Orders Only [id number] ElifHarjit I 1950 F Date Provider Department Center 01/09/2025 BIANCA MIGUEL [facility] Family History Problem Relation Age of Onset Coronary artery disease Mother Diabetes Mother Coronary artery disease Father Family Status - Relation Status Age at Mother Father Sister Brother Alive [facility] Orders Onlyon 01-08-2025 Orders Only [id number] ElifHarjit I 1950 F Date Provider Department Center 01/08/2025 [facility] Family History Problem Relation Age of Onset Coronary artery disease Mother Diabetes Mother Coronary artery disease Father Family Status - Relation Status Age at Mother Father Sister Brother Alive [facility] Documentationon 12-25-2024 Documentation [id number] ElifHarjit I 1950 F Date Provider Department Center 12/25/2024 GABE [place] [facility] Family History Problem Relation Age of Onset Coronary artery disease Mother Diabetes Mother Coronary artery disease Father Family Status - Relation Status Age at Mother Father Sister Brother Alive [facility] Telephoneon 12-24-2024 Telephone [id number] Harjit Asencio I 1950 F Date Provider Department [place] 12/24/2024 BIANCA MIGUEL [facility] Family History Problem Relation Age of Onset Coronary artery disease Mother Diabetes Mother Coronary artery disease Father Family Status - Relation Status Age at Mother Father Sister Brother Alive [facility] 12-23-2024 [facility] Cardiology - [facility] Subjective Harjit Asencio is a 74 [...] insomnia Urethral stricture Urinary frequency Urinary urgency half-way 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 Paroxysmal atrial fibrillation [...] her recent visit with cardiology at [facility] on 09/26/2023 valsartan was stopped and low-dose lisinopril 5 mg once daily was added. The plan was to add Jardiance. There is note of her to being evaluated by CT surgery Dr. Sorto regarding candidacy for cardiac surgery and she was deemed high risk. She was also evaluated at [facility] cardiothoracic surgery. Initial workup for her mitral valve disease was started. Spironolactone was changed to half tablet twice a day instead of 1 tablet once a day. She was also recommended to start taking digoxin at night instead of the morning. At visit with ia on 10/16/2023 I increased her carvedilol to [...] are negativ (more content not included)... Normal [facility] Office Visiton 12-23-2024 Follow-up visit [id number] Harjit Asencio I 1950 F Date Provider Department Center 12/23/2024 Mulu-BRANDT [facility]EL [facility] Family History Problem Relation Age of Onset Coronary artery disease Mother Diabetes Mother Coronary artery disease Father Family Status - Relation Status Age at Mother Father Sister Brother Alive Level of Service:15136 HI OFFICE/OUTPATIENT ESTABLISHED HIGH MDM 40 MIN Normal [facility] Urinalysis macro (dipstick) panel (U)on 12-17-2024 Bilirubin, UA Negative Negative - 4(70) +++ mg/dL [facility] Blood, UA Positive Negative - 50 Pedro/mcL [facility] Clarity, UA Clear [facility] Color, UA Yellow [facility] Glucose, UA Negative Negative - 1999(110) ++++ mg/dL [facility] Interpretation and review of laboratory results Abnormal [facility] Ketones, UA Negative Negative - 160(16) ++++ mg/dL [facility] Leukocytes, UA Negative Negative - 500+++ Ghislaine/mcL [facility] Nitrite, UA Negative Negative - Positive [facility] pH, UA 6 5 - 9 [facility] Protein, UA Negative Negative - 2000(20) ++++ mg/dL [facility] Spec Grav, UA 1.005 1 - 1.03 [facility] Urobilinogen, UA 0.2 0.2 - 12 mg/dL [facility] ANESon 11-29-2024 ANES - Attestation signed by [...] 0900 Procedure: TRANSESOPHAGEAL ECHO (HAROON) Location: [facility] Vascular Lab Clinical information reviewed: Allergies Meds OB Status Physical Exam Airway Mallampati: III Cardiovascular Dental Pulmonary Abdominal Anesthesia Plan ASA 3 other (Conscious sedation) intravenous induction Anesthetic plan and risks discussed with patient. Use of blood products discussed with patient who consented to blood products. Plan discussed with attending and fellow. Additional Equipment Requests Normal [facility] BASIC METABOLIC PANELon 11-12 Anion gap [Moles/Vol] 9 mmol/L Normal 7-20 [facility] Comment on above: Performed By: #### L [id number] #### [facility] ([facility]) [address] [place] [address] Calcium [Mass/Vol] 9.1 mg/dL Normal 8.6-10.3 [facility] Comment on above: Performed By: #### L [id number] #### [facility] ([facility]) [address] [place] [address] Chloride [Moles/Vol] 102 mmol/L Normal 98-107 [facility] Comment on above: Performed By: #### L [id number] #### [facility] ([facility]) [address] [place] [address] CO2 [Moles/Vol] 32 mmol/L High 21-31 [facility] Comment on above: Performed By: #### L [id number] #### [facility] ([facility]) [address] [place] [address] Creatinine [Mass/Vol] 0.85 mg/dL Normal 0.60-1.20 [facility] Comment on above: Performed By: #### L [id number] #### [facility] ([facility]) [address] [place] [address] GLOMERULAR FILTRATION RATE ML/MIN/1.73 SQ M.PREDICTED 71.0 mL/min/1.73m*2 Normal >60.0 [facility] Comment on above: Result Comment: [facility]???s estimated glomerular filtration rate (eGFR) [...] individuals. Performed By: #### L [id number] #### [facility] ([facility]) [address] [place] [address] Glucose [Mass/Vol] 96 mg/dL Normal 70-100 [facility] Comment on above: Performed By: #### L [id number] #### [facility] ([facility]) [address] [place] [address] Potassium [Moles/Vol] 4.9 mmol/L Normal 3.5-5.1 [facility] Comment on above: Performed By: #### L [id number] #### [facility] ([facility]) [address] [place] [address] Sodium [Moles/Vol] 138 mmol/L Normal 136-145 [facility] Comment on above: Performed By: #### L [id number] #### [facility] ([facility]) [address] [place] [address] Urea nitrogen [Mass/Vol] 14 mg/dL Normal 7-25 [facility] Comment on above: Performed By: #### L [id number] #### [facility] ([facility]) [address] [place] [address] UREA NITROGEN/CREATININE (MASS RATIO) IN SER/PLAS 16.5 Normal [facility] Comment on above: Performed By: #### L [id number] #### [facility] ([facility]) [address] [place] [address] CBCon 11-29-2024 Erythrocyte distribution width (RBC) [Ratio] 13.3 % Normal 11.5-15.0 [facility] Comment on above: Performed By: #### L [id number] #### [facility] ([facility]) [address] [place] [address] ERYTHROCYTE MEAN CORPUSCULAR HEMOGLOBIN CONCENTRATION (G/DL) BY AUTOMATED 32.1 g/dL Normal 32.0-35.0 [facility] Comment on above: Performed By: #### L [id number] #### [facility] ([facility]) [address] [place] [address] Hematocrit (Bld) [Volume fraction] 41.8 % Normal 36.0-45.0 [facility] Comment on above: Performed By: #### L [id number] #### [facility] ([facility]) [address] [place] [address] Hemoglobin (Bld) [Mass/Vol] 13.4 g/dL Normal 12.0-15.0 [facility] Comment on above: Performed By: #### L [id number] #### [facility] ([facility]) [address] [place] [address] MCH (RBC) [Entitic mass] 30.0 pg Normal 27.0-33.0 [facility] Comment on above: Performed By: #### L [id number] #### [facility] ([facility]) [address] [place] [address] MCV (RBC) [Entitic vol] 93.7 fL Normal 82.0-98.0 [facility] Comment on above: Performed By: #### L [id number] #### [facility] ([facility]) [address] [place] [address] PLATELETS (10*3/UL) IN BLOOD AUTOMATED COUNT 264 10*3/uL Normal 150-400 [facility] Comment on above: Performed By: #### L [id number] #### [facility] ([facility]) [address] [place] [address] RBC (Bld) [#/Vol] 4.46 10*6/uL Normal 3.80-5.00 [facility] Comment on above: Performed By: #### L [id number] #### [facility] ([facility]) [address] [place] [address] WBC (Bld) [#/Vol] 9.08 10*3/uL Normal 4.00-10.60 [facility] Comment on above: Performed By: #### L [id number] #### [facility] ([facility]) [address] [place] [address] HPon 11-29-2024 - Attestation signed by Gabe [...] Intraprocedural f (more content not included)... Normal [facility] NURSNOTEon 11-29-2024 NURSNOTE Bedside swallow stud y completed and passed. Normal [facility] NURSNOTE RN educated pt on [...] of unit with all of belongings. Normal [facility] Telephoneon 11-22-2024 Telephone [id number] ElifHarjit Ruiz 1950 F Date Provider Department Center 11/22/2024 [facility] Family History Problem Relation Age of Onset Coronary artery disease Mother Diabetes Mother Coronary artery disease Father Family Status - Relation Status Age at Mother Father Normal [facility] Bacteria identified Cx Nom ( U)on 11-21-2024 Appearance (U) Adequate [facility] Internal identifier for Provider [id number] [facility] Specimen source Nom (Unsp spec) URINE, CLEAN CATCH [facility] STATUS FINAL [facility] Performing Organization Information Site ID: QPT Name: [facility] Address: [address] [place] [address] Director: Ab Vincent MD [facility] CULTURE, URINE, ROUTINEon CULTURE, URINE, ROUTINE SEE NOTE Normal [facility] Comment on above: Result Comment: CULTURE, URINE, ROUTINE Micro Number: [id number] Test Status: Final Specimen Source: Urine, clean catch Specimen Quality: Adequate Result: No Growth Performed By: #### 3 95 #### [facility] [place] [address] Methods Engineer: Ab Vincent MD Urine cultureon 11-21-2024 Bacteria identified Cx Nom (U) SEE NOTE [facility] Comment on above: No Growth Urinalysis macro (dipstick) panel (U)on 11-18-2024 Bilirubin, UA Negative Negative - 4(70) +++ mg/dL [facility] Blood, UA Positive Negative - 50 Pedro/mcL [facility] Clarity, UA Clear [facility] Color, UA Yellow [facility] Glucose, UA Negative Negative - 2000(110) ++++ mg/dL [facility] Interpretation and review of laboratory results Abnormal [facility] Ketones, UA Negative Negative - 160(16) ++++ mg/dL [facility] Leukocytes, UA Trace Negative - 500+++ Ghislaine/mcL [facility] Nitrite, UA Negative Negative - Positive [facility] pH, UA 6.5 5 - 9 [facility] Protein, UA Negative Negative - 1999(20) ++++ mg/dL [facility] Spec Grav, UA 1.01 1 - 1.03 [facility] Urobilinogen, UA 0.2 0.2 - 12 mg/dL [facility] Office Visiton 10-22-2024 Follow-up visit [id number] Harjit Asencio I 1950 F Date Provider Department Center 10/22/2024 PATTY DIANE Family History Problem Relation Age of Onset Coronary artery disease Mother Diabetes Mother Coronary artery disease Father Family Status - Relation Status Age at Mother Father Level of Service:82021 HI OFFICE/OUTPATIENT ESTABLISHED LOW MDM 20 MIN Normal [facility] Urinalysis macro (dipstick) panel (U)on 08-12-2024 Bilirubin, UA Negative Negative - 4(70) +++ mg/dL [facility] Blood, UA Positive Negative - 50 Pedro/mcL [facility] Clarity, UA Clear [facility] Color, UA Yellow [facility] Glucose, UA Negative Negative - 1999(110) ++++ mg/dL [facility] Interpretation and review of laboratory results Abnormal [facility] Ketones, UA Negative Negative - 160(16) ++++ mg/dL [facility] Leukocytes, UA Negative Negative - 500+++ Ghislaine/mcL [facility] Nitrite, UA Negative Negative - Positive [facility] pH, UA 6 5 - 9 [facility] Protein, UA Negative Negative - 1999(20) ++++ mg/dL [facility] Spec Grav, UA 1.005 1 - 1.03 [facility] Urobilinogen, UA 0.2 0.2 - 12 mg/dL [facility] COMPREHENSIVE METABOLIC PANE [place] 07-04-2024 Albumin [Mass/Vol] 4.2 g/dL Normal 3.6-5.1 [facility] Comment on above: Order Comment: FASTI NG:NO FASTING: NO Performed By: #### 1 0231 #### [facility] [place] [address] Methods Engineer: Ab Vincent MD Albumin/Globulin [Mass ratio] 1.8 {ratio} Normal 1.0-2.5 [facility] Comment on above: Order Comment: FASTI NG:NO FASTING: NO Performed By: #### 1 0231 #### [facility] [place] [address] Methods Engineer: Ab Vincent MD ALP [Catalytic activity/Vol] 75 U/L Normal 37-153 [facility] Comment on above: Order Comment: FASTI NG:NO FASTING: NO Performed By: #### 1 0231 #### [facility] [place] [address] Methods Engineer: bA Vincent MD ALT [Catalytic activity/Vol] 27 U/L Normal 6-29 [facility] Comment on above: Order Comment: FASTI NG:NO FASTING: NO Performed By: #### 1 0231 #### [facility] [place] [address] Methods Engineer: Ab Vincent MD AST [Catalytic activity/Vol] 27 U/L Normal 10-35 [facility] Comment on above: Order Comment: FASTI NG:NO FASTING: NO Performed By: #### 1 0231 #### [facility] [place] [address] Methods Engineer: Ab Vincent MD Bilirubin [Mass/Vol] 0.6 mg/dL Normal 0.2-1.2 [facility] Comment on above: Order Comment: FASTI NG:NO FASTING: NO Performed By: #### 1 0231 #### [facility] [place] [address] Methods Engineer: Ab Vincent MD BUN/CREATININE RATIO SEE NOTE: Normal 6-22 [facility] Comment on above: Order Comment: FASTI NG:NO FASTING: NO Result Comment: Not Reported: BUN and Creatinine are within reference range. Performed By: #### 1 0231 #### [facility] [address], [address] [place] [address] Methods Engineer: Ab Vincent MD Calcium [Mass/Vol] 9.2 mg/dL Normal 8.6-10.4 [facility] Comment on above: Order Comment: FASTI NG:NO FASTING: NO Performed By: #### 1 0231 #### [facility] [address], [address] [place] [address] Methods Engineer: Ab Vincent MD Chloride [Moles/Vol] 104 mmol/L Normal 98-110 [facility] Comment on above: Order Comment: FASTI NG:NO FASTING: NO Performed By: #### 1 0231 #### [facility] [place] [address] Methods Engineer: Ab Vincent MD CO2 [Moles/Vol] 27 mmol/L Normal 20-32 [facility] Comment on above: Order Comment: FASTI NG:NO FASTING: NO Performed By: #### 1 0231 #### [facility] [place] [address] Methods Engineer: Ab Vincent MD Creatinine [Mass/Vol] 0.87 mg/dL Normal 0.60-1.00 [facility] [employer] Comment on above: Order Comment: FASTI NG:NO FASTING: NO Performed By: #### 1 0231 #### [facility] [place] [address] Methods Engineer: Ab Vincent MD GFR/1.73 sq M.predicted among non-blacks MDRD (S/P/Bld) [Vol rate/Area] 69 mL/min/{1.73_m2} Normal > OR = 60 [facility] Comment on above: Order Comment: FASTI NG:NO FASTING: NO Performed By: #### 1 0231 #### [facility] [place] [address] Methods Engineer: Ab Vincent MD Globulin (S) [Mass/Vol] 2.3 g/dL Normal 1.9-3.7 [facility] Comment on above: Order Comment: FASTI NG:NO FASTING: NO Performed By: #### 1 0231 #### [facility] [place] [address] Methods Engineer: Ab Vincent MD Glucose [Mass/Vol] 94 mg/dL Normal 65-139 [facility] Comment on above: Order Comment: FASTI NG:NO FASTING: NO Result Comment: Non-fasting reference interval Performed By: #### 1 0231 #### [facility] [place] [address] Methods Engineer: Ab Vincent MD Potassium [Moles/Vol] 4.6 mmol/L Normal 3.5-5.[address] [facility] Comment on above: Order Comment: FASTI NG:NO FASTING: NO Performed By: #### 1 0231 #### [facility] [place] [address] Methods Engineer: Ab Vincent MD Protein [Mass/Vol] 6.5 g/dL Normal 6.1-8.1 [facility] Comment on above: Order Comment: FASTI NG:NO FASTING: NO Performed By: #### 1 0231 #### [facility] [place] [address] Methods Engineer: Ab Vincent MD Sodium [Moles/Vol] 139 mmol/L Normal 135-146 [facility] Comment on above: Order Comment: FASTI NG:NO FASTING: NO Performed By: #### 1 0231 #### [facility] [place] [address] Methods Engineer: Ab Vincent MD Urea nitrogen [Mass/Vol] 12 mg/dL Normal 7-25 [facility] Comment on above: Order Comment: FASTI NG:NO FASTING: NO Performed By: #### 1 0231 #### [facility] [place] [address] Methods Engineer: Ab Vincent MD CULTURE, URINE, ROUTINEon CULTURE, URINE, ROUTINE SEE NOTE Normal [facility] Comment on above: Order Comment: FASTI NG:UNKNOWN FASTING: UNKNOWN Result Comment: CULTURE, URINE, ROUTINE Micro Number: [id number] Test Status: Final Specimen Source: Urine Specimen Quality: Adequate Result: No Growth Performed By: #### 3 95 #### [facility] [address] [facility], [address] [place] [address] Methods Engineer: Ab Vincent MD 37on 07-02-2024 37 *You can take famotidine (Pepcid) 10mg daily as needed for heartburn/acid reflux. If you are still having symptoms, you can take tums or rolaids as needed. -Let cardiology know if chest pain persists Normal [facility] Office Visiton 07-02-2024 Follow-up visit [id number] Harjit Asencio I 1950 F Date Provider Department Center 07/02/2024 MARJ HOWELL CECILE [facility] Family History Problem Relation Age of Onset Coronary artery disease Mother Diabetes Mother Coronary artery disease Father Family Status - Relation Status Age at Mother Father Level of Service:78470 HI OFFICE/OUTPATIENT ESTABLISHED MOD MDM 30 MIN Reason for Visit and Comments: Atrial Fibrillation [80] Palpitations [377993] Congestive Heart Failure [127] Valve Disorder [3372] Normal [facility] Urinalysis macro (dipstick) panel (U)on 07-01-2024 Bilirubin, UA Negative Negative - 4(70) +++ mg/dL [facility] Blood, UA Negative Negative - 50 Pedro/mcL [facility] Clarity, UA Clear [facility] Color, UA Light Yellow [facility] Glucose, UA Negative Negative - 1999(110) ++++ mg/dL [facility] Interpretation and review of laboratory results Normal [facility] Ketones, UA Negative Negative - 160(16) ++++ mg/dL [facility] Leukocytes, UA Negative Negative - 500+++ Ghislaine/mcL [facility] Nitrite, UA Negative Negative - Positive [facility] pH, UA 6 5 - 9 [facility] Protein, UA Negative Negative - 2000(20) ++++ mg/dL [facility] Spec Grav, UA 1.01 1 - 1.03 [facility] Urobilinogen, UA 0.2 0.2 - 12 mg/dL [facility] CNOVon 06-27-2024 CNOV Normal [facility] HPon 06-10-2024 [place] [facility] Reason for visit: Afib+ CMP 06/10/24 [...] and subsequently had a visit with [facility] where evaluation was being done for surgical correction of mitral valve but was noted to have high risk and hence deferred. She also had an evaluation for the same [place] and thereafter had seen in [...] on file Intimate Partner Violence: Unknown (10/05/2023) [place] Safety & Environment Fear of Current or [...] clear, no (more content not included)... Normal [facility] Orders Onlyon 06-05-2024 Orders Only [id number] ElifHarjit I 1950 F Date Provider Department Center 06/05/2024 PATTY [facility]ANE [facility] CARD [facility] Family History Problem Relation Age of Onset Coronary artery disease Mother Diabetes Mother Coronary artery disease Father Family Status - Relation Status Age at Mother Father Normal [facility] BMPon 06-03-2024 Anion gap [Moles/Vol] 9 mmol/L Normal 6-16 [facility] Comment on above: Performed By: #### 2 [id number] #### [facility] [address] [place] [address] Calcium [Mass/Vol] 9.1 mg/dL Normal 8.9-11.1 [facility] Comment on above: Performed By: #### 2 [id number] #### [facility] [address] [place] [address] Chloride [Moles/Vol] 103 mmol/L Normal 101-111 [facility] Comment on above: Performed By: #### 2 [id number] #### [facility] [address] [place] [address] CO2 [Moles/Vol] 29 mmol/L Normal 21-31 [facility] Comment on above: Performed By: #### 2 [id number] #### [facility] [address] [place] [address] Creatinine [Mass/Vol] 0.8 mg/dL Normal 0.5-1.3 [facility] Comment on above: Performed By: #### 2 [id number] #### [facility] [address] [place] [address] Glucose [Mass/Vol] 89 mg/dL Normal 55-199 [facility] Comment on above: Performed By: #### 2 [id number] #### [facility] [address] [place] [address] Potassium [Moles/Vol] 4.3 mmol/L Normal 3.5-5.3 [facility] Comment on above: Performed By: #### 2 606166 #### [facility] [address] [place] [address] Sodium [Moles/Vol] 137 mmol/L Normal 135-145 [facility] Comment on above: Performed By: #### 2 [id number] #### [facility] [address] [place] [address] Urea nitrogen [Mass/Vol] 12 mg/dL Normal 5-21 [facility] Comment on above: Performed By: #### 2 [id number] #### [facility] [address] [place] [address] Urea nitrogen/Creatinine [Mass ratio] 15 No Units Normal 10-20 [facility] Comment on above: Performed By: #### 2 [id number] #### [facility] [address] [place] [address] CBC w/Indiceson 06-03-2024 Erythrocyte distribution width (RBC) [Ratio] 14.0 % Normal 10.9-14.2 [facility] Comment on above: Performed By: #### 2 [id number] #### [facility] [address] [place] [address] Hematocrit (Bld) [Volume fraction] 40.6 % Normal 34.0-46.0 [facility] Comment on above: Performed By: #### 2 [id number] #### [facility] [address] [place] [address] Hemoglobin (Bld) [Mass/Vol] 13.7 g/dL Normal 12.0-16.0 [facility] Comment on above: Performed By: #### 2 [id number] #### [facility] [address] [place] [address] MCH (RBC) [Entitic mass] 31.0 pg Normal 27.0-34.0 [facility] Comment on above: Performed By: #### 2 [id number] #### [facility] [address] [place] [address] MCHC (RBC) [Mass/Vol] 33.6 g/dL Normal 31.4-36.0 [facility] Comment on above: Performed By: #### 2 [id number] #### [facility] [address] [place] [address] MCV (RBC) [Entitic vol] 92.2 fL Normal 80.0-100.0 [facility] Comment on above: Performed By: #### 2 [id number] #### [facility] [address] [place] [address] Platelet mean volume (Bld) [Entitic vol] 8.3 fL Normal 6.4-10.8 [facility] Comment on above: Performed By: #### 2 [id number] #### [facility] [address] [place] [address] Platelets (Bld) [#/Vol] 198.0 E9/L Normal 150.0-500.0 [facility] Comment on above: Performed By: #### 2 437931 #### [facility] [address] [place] [address] RBC (Bld) [#/Vol] 4.4 E12/L Normal 4.3-5.9 [facility] Comment on above: Performed By: #### 2 583632 #### [facility] [address] [place] [address] RBC size Nom (Bld) NORMAL Invalid Interpretation Code [facility] Comment on above: Performed By: #### 2 [id number] #### [facility] [address] [place] [address] WBC corrected for nucl RBC Auto (Bld) [#/Vol] 7.0 E9/L Normal 4.0-11.0 [facility] Comment on above: Performed By: #### 2 [id number] #### [facility] [address] [place] [address] CHEMISTRYOrdered By: SYSTEM SYSTEM on 06-03-2024 Anion [...] Remisol Heme Orders Onlyon 06-03-2024 Orders Only [id number] Harjit Asencio I 1950 Provider Department Center 06/03/2024 [facility] VASC LAB [facility] Family History Problem Relation Age of Onset Coronary artery disease Mother Diabetes Mother Coronary artery disease Father Family Status - Relation Status Age at Mother Father Normal [facility] eGFRon 06-03-2024 eGFR 76 mL/min/1.73 m2 Normal >=59 [facility] Comment on above: Performed By: #### 1 [id number] #### [facility] [address] [place] [address] Office Visiton 05-27-2024 Follow-up visit [id number] Harjit Asencio I 1950 Provider Department Center 05/27/2024 RAFAEL PEDERSEN [facility] Stacie Hos Family History Problem Relation Age of Onset Coronary artery disease Mother Diabetes Mother Coronary artery disease Father Family Status - Relation Status Age at Mother Father Level of Service:93667 [place] OFFICE/OUTPATIENT ESTABLISHED MOD MDM 30 MIN Normal [facility] CNOVon 05-07-2024 CNOV Normal [facility] CNPTOUTREACHon 05-07-2024 CNPTOUTREACH Normal [facility] URINALYSIS, REFLEX MICROSCOP ICon 05-07-2024 Bilirubin Ql (U) Negative Negative [facility] Clarity (Unsp spec) Clear Clear [facility] Color (U) Yellow Yellow [facility] Glucose Test strip (U) [Mass/Vol] Negative Negative [facility] Hemoglobin Ql (U) Negative Negative [facility] Interpretation and review of laboratory results Normal [facility] Ketones Ql (U) Negative Negative [facility] Leukocyte esterase Test strip Ql (U) Negative Negative [facility] Nitrite Ql (U) Negative Negative [facility] pH (U) 6.0 [pH] NINF - 8.5 [facility] Protein (U) [Mass/Vol] Negative Negative [facility] Specific gravity (U) [Rel density] 1.007 1.005 - 1.030 [facility] Urobilinogen Ql (U) 0.2 EU/dL 0.2-1.0 EU/dL [facility] Bilirubin Ql (U) Negative Normal Negative [facility] Comment on above: Order Comment: Speci men Type: URINE SPECIMENOrdering Facility: [facility] Address: [address] [place] [address] Performed By: #### L [id number] ####[facility] LABCLIA [id number] [place] [address] [place] Clarity (Unsp spec) Clear Normal Clear [facility] Comment on above: Order Comment: Speci men Type: URINE SPECIMENOrdering Facility: [facility] Address: [address] [place] [address] Performed By: #### L [id number] ####[facility] LABCLIA [id number] [place] [address] [place] Color (U) Yellow Normal Yellow [facility] Comment on above: Order Comment: Speci men Type: URINE SPECIMENOrdering Facility: [facility] Address: [address] [place] [address] Performed By: #### L [id number] ####[facility] LABCLIA [id number] [place] [address] [place] Glucose Test strip (U) [Mass/Vol] Negative Normal Negative [facility] Comment on above: Order Comment: Speci men Type: URINE SPECIMENOrdering Facility: [facility] Address: [address] [place] [address] Performed By: #### L [id number] ####[facility] LABCLIA [id number] [place] [address] [place] Hemoglobin Ql (U) Negative Normal Negative [facility] Comment on above: Order Comment: Speci men Type: URINE SPECIMENOrdering Facility: [facility] Address: [address] [place] [address] Performed By: #### L [id number] ####[facility] LABCLIA [id number] [place] [address] [place] Ketones Ql (U) Negative Normal Negative [facility] Comment on above: Order Comment: Speci men Type: URINE SPECIMENOrdering Facility: [facility] Address: [address] [place] [address] Performed By: #### L [id number] ####[facility] LABCLIA [id number] [place] [address] [place] Leukocyte esterase Test strip Ql (U) Negative Normal Negative [facility] Comment on above: Order Comment: Speci men Type: URINE SPECIMENOrdering Facility: [facility] Address: [address] [place] [address] Performed By: #### L [id number] ####[facility] LABCLIA [id number] [place] [address] [place] Nitrite Ql (U) Negative Normal Negative [facility] Comment on above: Order Comment: Speci men Type: URINE SPECIMENOrdering Facility: [facility] Address: [address] [place] [address] Performed By: #### L [id number] ####[facility] LABCLIA [id number] [place] [address] [place] pH (U) 6.0 [pH] Normal <8.5 [facility] Comment on above: Order Comment: Speci men Type: URINE SPECIMENOrdering Facility: [facility] Address: [address] [place] [address] Performed By: #### L [id number] ####[facility] LABIA [id number] [place] [id number] [place] Protein (U) [Mass/Vol] Negative Normal Negative [facility] Comment on above: Order Comment: Speci men Type: URINE SPECIMENOrdering Facility: [facility] Address: [address] [place] [address] Performed By: #### L [id number] ####[facility] LABIA [id number] [place] [address] [place] Specific gravity (U) [Rel density] 1.007 Normal 1.005-1.030 [facility] Comment on above: Order Comment: Speci men Type: URINE SPECIMENOrdering Facility: [facility] Address: [address] [place] [address] Performed By: #### L [id number] ####[facility] [id number] [place] [address] [place] Urobilinogen Ql (U) 0.2 EU/dL Normal 0.2-1.0 EU/dL [facility] Comment on above: Order Comment: Speci men Type: URINE SPECIMENOrdering Facility: [facility] Address: [address] [place] [address] Performed By: #### L [id number] ####[facility] LABIA [id number] [place] [id number] [place] 36on 05-06-2024 36 Pt informed and she will restart eliquis day after injections Normal [facility] C Urineon 11-24-2023 Bacteria identified [...] Locations R1: This test was performed at: [facility], [address] [place] [address], [address] , , [facility] Comment on above: Performed By: #### 2 [id number], [id number], [id number], [id number], [id number], [id number] #### [facility] [address] [place] [address] BB Draw & Holdon 11-23-2023 BB D&H Sample drawn for Blood Ba [facility] Comment on above: Performed By: #### 1 [id number] #### [facility] [address] [place] [address] [address] Abdomen/Pelvis w/ Contras ton 11-23-2023 CT [...] Oral contrast amount in ml's: 0 Normal [facility] ED Note-Physicianon 11-23-19 ED Note-Physician Basic [...] imaging. No significant abnormalities. Patient is very wtnj-fyg-laheb with her symptoms and now states to [...] day(s), # 100 mL, Refills(s) 0, Pharmacy: [facility], 165, cm, 11/22/23 16:28:00 EDT, Height/Length [...] days 11/25/[address] [place] [address]- Additional Instructions: Patient Education Constipation, Adult, Nprw-nn-Hswc Attestation I performed a substantive part of [...] EC T (more content not included)... Normal [facility] Comment on above: Result Comment: Elec tronically Signed By: Edel Zhou PA-C\.br\Date and Time Signed: 11/22/23 20:45 EDT\.br\Electronically Co-Signed By: Jayson Calloway DO\.br\Date and Time Co-Signed: 11/23/23 07:15 EDT CBC w/ Auto Diffon 4 Basophils/100 WBC (Bld) 1.1 % Normal 0.0-2.0 [facility] Comment on above: Performed By: #### 1 [id number] #### [facility] [address] [place] [address] Basophils/Leukocytes Auto (Bld) [Pure # fraction] 0.1 E9/L Normal 0.0-0.2 [facility] Comment on above: Performed By: #### 1 [id number] #### [facility] [address] [place] [address] Eosinophils (Bld) [#/Vol] 0.0 E9/L Normal 0.0-0.5 [facility] Comment on above: Performed By: #### 1 [id number] #### [facility] [address] [place] [address] Eosinophils/100 WBC (Bld) 0.2 % Normal 0.0-8.0 [facility] Comment on above: Performed By: #### 1 [id number] #### [facility] [address] [place] [address] Erythrocyte distribution width (RBC) [Ratio] 14.7 % High 10.9-14.2 [facility] Comment on above: Performed By: #### 1 [id number] #### [facility] [address] [place] [address] Hematocrit (Bld) [Volume fraction] 42.0 % Normal 34.0-46.0 [facility] Comment on above: Performed By: #### 1 [id number] #### [facility] [address] [place] [address] Hemoglobin (Bld) [Mass/Vol] 13.9 g/dL Normal 12.0-16.0 [facility] Comment on above: Performed By: #### 1 [id number] #### [facility] [address] [place] [address] Lymphocytes (Bld) [#/Vol] 2.1 E9/L Normal 1.0-4.0 [facility] Comment on above: Performed By: #### 1 [id number] #### [facility] [address] [place] [address] Lymphocytes/100 WBC (Bld) 25.6 % Normal 14.0-50.0 [facility] Comment on above: Performed By: #### 1 [id number] #### [facility] [address] [place] [address] MCH (RBC) [Entitic mass] 30.3 pg Normal 27.0-34.0 [facility] Comment on above: Performed By: #### 1 [id number] #### [facility] [address] [place] [address] MCHC (RBC) [Mass/Vol] 33.1 g/dL Normal 31.4-36.0 [facility] Comment on above: Performed By: #### 1 [id number] #### [facility] [address] [place] [address] MCV (RBC) [Entitic vol] 91.5 fL Normal 80.0-100.0 [facility] Comment on above: Performed By: #### 1 [id number] #### [facility] [address] [place] [address] Monocytes (Bld) [#/Vol] 0.5 E9/L Normal 0.2-1.0 [facility] Comment on above: Performed By: #### 1 [id number] #### [facility] [address] [place] [address] Neutrophils (Bld) [#/Vol] 5.5 E9/L Normal 2.0-7.5 [facility] Comment on above: Performed By: #### 1 [id number] #### [facility] [address] [place] [address] Neutrophils/100 WBC (Bld) 66.8 % Normal 36.0-75.0 [facility] Comment on above: Performed By: #### 1 [id number] #### [facility] [address] [place] [address] Platelet mean volume (Bld) [Entitic vol] 8.3 fL Normal 6.4-10.8 [facility] Comment on above: Performed By: #### 1 [id number] #### [facility] [address] [place] [address] Platelets (Bld) [#/Vol] 250.0 E9/L Normal 150.0-500.0 [facility] Comment on above: Performed By: #### 1 [id number] #### [facility] [address] [place] [address] RBC (Bld) [#/Vol] 4.6 E12/L Normal 4.3-5.9 [facility] Comment on above: Performed By: #### 1 [id number] #### [facility] [address] [place] [address] WBC corrected for nucl RBC Auto (Bld) [#/Vol] 8.3 E9/L Normal 4.0-11.0 [facility] Comment on above: Performed By: #### 1 [id number] #### [facility] [address] [place] [address] CHEMISTRYOrdered By: SYSTEM SYSTEM on 11-22-2023 Albumin [...] Sensitivity Troponin I Instructions For Use, [facility], March 2018) Urea nitrogen [Mass/Vol] 20 mg/dL Normal 5 - 21 mg/dL [facility] Urea nitrogen/Creatinine [Mass ratio] 20 mg/mg Normal 10 - 20 [facility] CMPon 11-22-2023 Albumin [Mass/Vol] 4.6 g/dL Normal 3.3-5.0 [facility] Comment on above: Performed By: #### 1 [id number] #### [facility] [address] [place] [address] Albumin/Globulin (S) [Mass conc ratio] 1.8 Normal 1.1-2.2 [facility] Comment on above: Performed By: #### 1 6492519 #### [facility] [address] [place] [address] ALP [Catalytic activity/Vol] 90 Int._Unit/L Normal 21-98 [facility] Comment on above: Performed By: #### 1 [id number] #### [facility] [address] [place] [address] ALT No additional P-5'-P [Catalytic activity/Vol] 41 Int._Unit/L Normal 6-46 [facility] Comment on above: Performed By: #### 1 [id number] #### [facility] [address] [place] [address] Anion gap [Moles/Vol] 13 mmol/L Normal 6-16 [facility] Comment on above: Performed By: #### 1 [id number] #### [facility] [address] [place] [address] AST [Catalytic activity/Vol] 30 Int._Unit/L Normal 5-43 [facility] Comment on above: Performed By: #### 1 [id number] #### [facility] [address] [place] [address] Bilirubin [Mass/Vol] 1.0 mg/dL Normal 0.0-1.1 [facility] Comment on above: Performed By: #### 1 [id number] #### [facility] [address] [place] [address] Calcium [Mass/Vol] 10.0 mg/dL Normal 8.9-11.1 [facility] Comment on above: Performed By: #### 1 [id number] #### [facility] [address] [place] [address] Chloride [Moles/Vol] 99 mmol/L Low 101-111 [facility] Comment on above: Performed By: #### 1 [id number] #### [facility] [address] [place] [address] CO2 [Moles/Vol] 27 mmol/L Normal 21-31 [facility] Comment on above: Performed By: #### 1 [id number] #### [facility] [address] [place] [address] Creatinine [Mass/Vol] 1.0 mg/dL Normal 0.5-1.3 [facility] Comment on above: Performed By: #### 1 [id number] #### [facility] [address] [place] [address] Globulin (S) [Mass/Vol] 2.6 g/dL Normal 1.4-4.0 [facility] Comment on above: Performed By: #### 1 [id number] #### [facility] [address] [place] [address] Glucose [Mass/Vol] 114 mg/dL Normal 55-199 [facility] Comment on above: Performed By: #### 1 4041274 #### [facility] [address] [place] [address] Potassium [Moles/Vol] 4.2 mmol/L Normal 3.5-5.3 [facility] Comment on above: Performed By: #### 1 [id number] #### [facility] [address] [place] [address] Protein [Mass/Vol] 7.2 g/dL Normal 6.0-7.8 [facility] Comment on above: Performed By: #### 1 [id number] #### [facility] [address] [place] [address] Sodium [Moles/Vol] 135 mmol/L Normal 135-145 [facility] Comment on above: Performed By: #### 1 [id number] #### [facility] [address] [place] [address] Urea nitrogen [Mass/Vol] 20 mg/dL Normal 5-21 [facility] Comment on above: Performed By: #### 1 [id number] #### [facility] [address] [place] [address] Urea nitrogen/Creatinine [Mass ratio] 20 No Units Normal 10-20 [facility] Comment on above: Performed By: #### 1 [id number] #### [facility] [address] [place] [address] COAGULATIONOrdered By: Elena Dinero on 11-22-2023 aPTT Coag (PPP) [Time] 41.3 s High 25.1 - 36.5 second(s) [facility] Comment on above: Interpretive Data: [...] the same coagulation reagent and instrumentation as [facility]. Currently there are no coagulation studies available worldwide for children to 14 days, and no normal ranges. Heparin therapeutic range (represented by Anti-Factor Xa activity of 0.2 - 0.4 U/mL) corresponds to PTT of 56.6 - 109.0 sec. INR Coag (PPP) [Relative time] 1.37 {INR} Invalid Interpretation Code [facility] Comment on above: Interpretive Data: I NR results are specifically intended to assess patients stabilized on long-term Anticoagulation therapy suggested INR s Less Intensive Anticoagulation 2.0 3.0 Conventional Range 3.0 4.5 PT Coag (PPP) [Time] 15.4 s High 9.4 - 1 2.5 second(s) [facility] Comment on above: Interpretive Data: [...] the same coagulation reagent and instrumentation as [facility]. Currently there are no coagulation studies available worldwide for children to 14 days, and no normal ranges. Consent for Treatmenton 11-12 Consent for Treatment [id number] .[id number] Normal [facility] Discharge Instructionson Discharge Instructions [id number] 1.00TIFF Normal [facility] ED Clinical Summaryon 2023 ED Clinical Summary [place] [id number] ED Clinical Summary Person Information Name: HARJIT ASENCIO I Patricia/[facility] Age: 73 Years : 1950 Sex: Female Language: Qatari PCP: Snehal MCMAHON, Hannah De [place] Marital [...] 11/22/2023 20:57:39 11/22/2023 20:57:39 11/22/2023 20:57:39 ADDRESS: [address] [place] [address] [address] [place] [id number] PHYS DOC NOTES: MEDICAL INFORMATION: Prescriptions Given: New Medications [facility], [address] [place] [id number], [phone] lactulose (lactulose 10 g/15 mL Oral Syrup) [...] 0. PATIENT EDUCATION INFORMATION: Instructions: Constipation, Adult, Irve-uo-Twtf Follow up: With: Address: When: Snehal MCMAHON, Hannah [facility] [address] [place], [place] [id number] In 3 days 11/25/2023 DIAGNOSIS: 1:Constipation Normal [facility] ED Patient Education Noteon 11-22-2023 ED [...] in fat and sugar, such as: ? St Helenian fries. ? Hamburgers. ? Cookies. ? Candy. ? Soda. ? Drink enough fluid to keep your pee (urine) pale yellow. General instructions ? Exercise regularly or as told by your doctor. Try to do 150 minutes of exercise each week. ? Go to the restroom when you feel like you need to poop. Do not hold it in. ? Take ynrb-abs-tezgobj and prescription medicines only as told by [...] your pee (urine) pale yellow. ? Take byfh-dts-aswkcfi and prescription medicines only as told by your doctor. These include any fiber supplements. This information is not intended to replace advice given to you by your health care provider. Make sure you discuss any questions you have with your health care provider. Document Revised: 06/17/2020 Document Reviewed: 06/17/2020 [employer] Patient Education ? 2022 [employer]. Normal [facility] ED Patient Summaryon 024 ED Patient Summary [address] [address] Patient Discharge Instructions Person Information Name: HARJIT ASENCIO I Age: 73 Years Arrival Date: 11/22/2023 16:16:41 Discharge Diagnosis: 1:Constipation Primary Care Physician: Hannah Brian MD Provider Information Primary Provider: Jayson Calloway DO Advanced Clerical Production Worker:None The exam and treatment you received in the Emergency Department were for an urgent problem and are not intended as complete care. It is important that you follow up with a doctor, nurse practitioner, or physician?s assistant baseball coach for ongoing care. If your symptoms become [...] Address: When: [place] [address] [place] [address] In 3 days 11/25/2023 In the event that this physician does not participate in your insurance network, please consult with your insurance company to find a nearby participating provider. Patient Education Materials: Constipation, Adult, Gqyc-tx-Mwaz A MESSAGE TO ALL PATIENTS REGARDING OPIOIDS PRESCRIPTION OPIOIDS: WHAT YOU NEED TO KNOW Prescription opioids can be used to help relieve egjzuxif-er-fhgesb pain and are often prescribed following a [...] be struggling with addiction, tell your health care worker and ask for guidance or call [facility]?S National Helpline at 2-988-894-KDRT. v Source: US Department of Health and Human S (more content not included)... Normal [facility] HEMATOLOGYOrdered By: SYSTEM SYSTEM on 11-22-2023 [...] 11-22-2023 Magnesium [Mass/Vol] 2.0 mg/dL Normal 1.3-2.4 [facility] Comment on above: Performed By: #### 1 [id number] #### [facility] [address] [place] [address] PT & PTTon 11-22-2023 aPTT Coag (PPP) [Time] 41.3 second(s) High 25.1-36.5 [facility] Comment on above: Result Comment: Para [...] the same coagulation reagent and instrumentation as [facility]. Currently there are no coagulation studies available worldwide for children to 14 days, and no normal ranges. Heparin therapeutic range (represented by Anti-Factor Xa activity of 0.2 - 0.4 U/mL) corresponds to PTT of 56.6 - 109.0 sec. Performed By: #### 1 [id number] #### [facility] [address] [place] [address] INR Coag (PPP) [Relative time] 1.37 {INR} Invalid Interpretation Code [facility] Comment on above: Result Comment: INR results are specifically intended to assess patients stabilized on long-term Anticoagulation therapy suggested INR?s ?Less Intensive Anticoagulation? 2.0 ? 3.0 Conventional Range 3.0 ? 4.5 Performed By: #### 1 [id number] #### [facility] [address] [place] [address] PT Coag (PPP) [Time] 15.4 second(s) High 9.4-12.5 [facility] Comment on above: Result Comment: 15 [...] the same coagulation reagent and instrumentation as [facility]. Currently there are no coagulation studies available worldwide for children to 14 days, and no normal ranges. Performed By: #### 1 [id number] #### [facility] [address] [place] [address] RAD - Preliminary Cat Scan R eporton 11-22-2023 RAD - Preliminary Cat Scan Report [id number]# 1.00TIFF Normal [facility] Troponin 0 Hr.on 11-22-2023 Troponin 12.30 pg/mL Normal 10.10-27.10 [facility] Comment on above: Result Comment: The 95% CI (Confidence Interval) PPV (Positive Predictive Value) for myocardial infarction in females is 38 pg/mL, in males 51 pg/mL. The results should be used in conjunction with clinical conditions of myocardial infarction. (Access High Sensitivity Troponin I Instructions For Use, [employer], March 2018) Performed By: #### 1 [id number] #### [facility] [address] [place] [address] UA with Cult Rflxon 11-22-19 24 Bilirubin Ql (U) Negative Normal Negative [facility] Comment on above: Performed By: #### 2 255308, 90863356, 5537019, 7143210, 8669529, 5721511 #### [facility] [address] [place] [address] Clarity (U) Clear Normal Clear [facility] Comment on above: Performed By: #### 2 287276, 89870395, 6042542, 4023785, 0928615, 2266199 #### [facility] [address] [place] [id number] Color (U) Colorless Abnormal Yellow [facility] Comment on above: Result Comment: Micr oscopic readings are only performed on those samples that meet specific criteria set forth by [facility]. Performed By: #### 2 393216, 32087191, 8812681, 7726064, 6055232, 8364295 #### [facility] [address] [place] [address] Epithelial cells.squamous Auto (Urine sed) [#/Area] 0-2 Normal 0-2 [facility] Comment on above: Performed By: #### 2 644787, 32247404, 5393185, 8234698, 8202044, 2687317 #### [facility] [address] [place] [address] Glucose Ql (U) Negative Normal Negative [facility] Comment on above: Performed By: #### 2 991035, 52023483, 5894847, 6594644, 6517730, 5829916 #### [facility] [address] [place] [address] Hemoglobin Auto test strip (U) [Mass/Vol] Negative Normal Negative [facility] Comment on above: Performed By: #### 2 759517, 23599155, 0946280, 5968517, 4640613, 4629706 #### [facility] [address] [place] [address] Ketones Auto test strip Ql (U) Negative Normal Negative [facility] Comment on above: Performed By: #### 2 209323, 68137795, 7915335, 7772960, 6745575, 1798710 #### [facility] [address] [place] [address] Leukocyte esterase Auto test strip Ql (U) 75 Ghislaine/uL Abnormal Negative [facility] Comment on above: Performed By: #### 2 805609, 21438053, 5872696, 6497648, 0006211, 9025189 #### [facility] [address] [place] [address] Mucus Auto Ql (U) Negative Normal Negative [facility] Comment on above: Performed By: #### 2 864007, 51588112, 2722290, 8917176, 6550677, 5076314 #### [facility] [address] [place] [address] Nitrite Auto test strip Ql (U) Negative Normal Negative [facility] Comment on above: Performed By: #### 2 601283, 90129369, 3681635, 0745073, 0451573, 4454464 #### [facility] [address] [place] [address] pH (U) 7.0 [pH] Invalid Interpretation Code 5.0-9.0 [facility] Comment on above: Performed By: #### 2 287476, 66242192, 7218956, 7581781, 5178260, 9625780 #### [facility] [address] [place] [address] Protein Ql (U) Negative Normal Negative [facility] Comment on above: Performed By: #### 2 976505, 24484097, 4795868, 1892473, 2827179, 2359527 #### [facility] [address] [place] [address] RBC Ql (U) 0-3 Normal 0-3 [facility] Comment on above: Performed By: #### 2 629983, 14825202, 0433196, 9228829, 5243354, 4182033 #### [facility] [address] [place] [address] Specific gravity (U) [Rel density] 1.004 Invalid Interpretation Code 1.005-1.030 [facility] Comment on above: Performed By: #### 2 461232, 06868812, 2934044, 6337473, 9590489, 5200140 #### [facility] [address] [place] [address] Urobilinogen (U) [Mass/Vol] Negative Normal Negative [facility] Comment on above: Performed By: #### 2 856309, 51554707, 7504447, 0814083, 0353243, 6562007 #### [facility] [address] [place] [address] WBC Auto (Urine sed) [#/Area] 0-5 Normal 0-5 [facility] Comment on above: Performed By: #### 2 207170, 80699950, 8856093, 2915428, 5000543, 5052624 #### [facility] [address] [place], [place] [address] Type of Urine collection method Clean Catch Normal [facility] Comment on above: Performed By: #### 2 110130, 02531864, 6418047, 2035841, 3220185, 7945257 #### [facility] [address] [place], [place] [address] URINALYSISOrdered By: SYSTEM SYSTEM on 11-22-2023 Bilirubin [...] that meet specific criteria set forth by [facility]. Epithelial cells.squamous Auto (Urine sed) [...] PM) Invalid Interpretation Code 5.0 - 9.0 [facility] UA Auto SS Protein Ql (U) Negative Normal Negativemg/d L [facility] UA Auto SS RBC Ql (U) 0-3 graded/HPF Normal 0-3graded/HP F [facility] UA Auto SS Specific gravity (U) [Rel density] 1.004 *NA* (11/22/23 4:36 PM) Invalid Interpretation Code 1.005 - 1.030 [facility] UA Auto SS Urobilinogen (U) [Mass/Vol] Negative Normal Negativemg/d L [facility] UA Auto SS WBC Auto (Urine sed) [#/Area] 0-5 graded/HPF Normal 0-5graded/HP F [facility] UA Auto SS URINALYSISOrdered By: Sandhya Xavier on 11-22-2023 UA Spec Desc Clean Catch (11/22/23 4:36 PM) Normal [facility] UA Auto SS XR Abdomen 1 Viewon [...] mGy = na DAP = na Normal [facility] eGFRon 11-22-2023 eGFR 58 mL/min/1.73 m2 Low >=59 [facility] Comment on above: Order Comment: Order added by Discern Expert. Performed By: #### 1 [id number] #### [facility] [address] [place] [address] Consent for Treatmenton Consent for Treatment [id number]#1 .00TIFF [facility] US Abdomen, Limitedon 2023 US [...] MD Transcribed by: ARAVIND Technologist: IZABEL Doty [facility] Physician Orderon 11-09-2023 Physician Order [id number]#1 .00TIFF Normal [facility] CNOVon 10-16-2023 CNOV Normal [facility] CNPNon 10-16-2023 CNPN Normal [facility] UA DIP, URINE (POC)on 2023 BILIRUBIN UA (POCT) Negative Negative Titi [facility] CLARITY UA (POCT) Clear [facility] COLOR UA (POCT) Yellow [facility] GLUCOSE UA (POCT) Negative Negative mg/dL [facility] Hemoglobin Ql (U) Trace-lysed Abnormal Negative [facility] KETONE UA (POCT) Negative Negative mg/dL [facility] LEUKOCYTES UA (POCT) Large Abnormal Negative [facility] NITRITE UA (POCT) Negative Negative [facility] PH UA (POCT) 6.0 4.5 - 8.0 [facility] Protein Ql (U) Negative Negative mg/dL [facility] SPECIFIC GRAVITY UA (POCT) 1.010 1.005 - 1.030 [facility] UROBILINOGEN UA (POCT) 0.2 E.U./dL Normal E.U./dL [facility] ED Note-Physicianon 10-06-19 24 ED Note-Physician Basic [...] as she thinks she is back in [facility]. Review of Systems Constitutional: Denies weight loss, [...] Constipation, unspecified) (more content not included)... Normal [facility] Comment on above: Result Comment: Elec tronically Signed By: Nica Knox PA-C\.br\Date and Time Signed: 10/05/23 21:57 EST\.br\Electronically Co-Signed By: Koby Masterson DO.br\Date and Time Co-Signed: 10/06/23 00:54 EST Consent for Treatmenton 09-15 Consent for Treatment [id number]#1 .00TIFF Normal [facility] Discharge Instructionson Discharge Instructions [id number]# 1.00TIFF Normal [facility] ED Clinical Summaryon 2023 ED Clinical Summary [address] [address] ED Clinical Summary Person Information Name: HARJIT ASENCIO I [place] Age: 73 Years : 1950 Sex: Female Language: Qatari PCP: Peggy Nazario MD Marital Status: Visit [...] 10/05/2023 21:56:34 10/05/2023 21:56:34 10/05/2023 21:56:34 ADDRESS: [address] [place] [address] [facility] [id number] PHYS DOC NOTES: MEDICAL INFORMATION: Prescriptions Given: Medications to Continue Taking That Have Changed [address] [place], [place] [id number], [phone] START: carvedilol (carvedilol 3.125 mg Tab) 1 [...] 0. PATIENT EDUCATION INFORMATION: Instructions: Constipation, Adult, Zevv-sj-Klyk; Gastroesophageal Reflux Disease, Adult, Vwiy-kq-Luhi; Abdominal Pain, Adult, Dzii-dk-Avnf Follow up: With: Address: When: Johan HENRIQUEZ [address] [place] [address] [phone] Flotype (1) In 3 days 10/08/2023 With: Address: When: Peggy Nazario [address] [place] [address] Flotype (1) In 3 days DIAGNOSIS: 1:Constipation Normal [facility] ED Patient Education Noteon 10-05-2023 ED [...] in fat and sugar, such as: ? [place] Helenian fries. ? Hamburgers. ? Cookies. ? Candy. ? Soda. ? Drink enough fluid to keep your pee (urine) pale yellow. General instructions ? Exercise regularly or as told by your doctor. Try to do 150 minutes of exercise each week. ? Go to the restroom when you feel like you need to poop. Do not hold it in. ? Take lrag-wsh-bcibiyd and prescription medicines only as told by [...] your pee (urine) pale yellow. ? Take qxdi-wqe-pdkurnz and prescription medicines only as told by your doctor. These include any fiber supplements. This information is not intended to replace advice given to you by your health care provider. Make sure you discuss any questions you have with your health care provider. Document Revised: 06/17/2020 Document Reviewed: 06/17/2020 [employer] Patient Education ? 2022 [employer]. Gastroesophageal Reflux Disease, Adult Gastroesophageal reflux (ZUNILDA) [...] ? Hors (more content not included)... Normal [facility] ED Patient Summaryon 024 ED Patient Summary [place] [id number] Patient Discharge Instructions Person Information Name: HARJIT ASENCIO I Age: 73 Years Arrival Date: 10/05/2023 17:54:10 Discharge Diagnosis: 1:Constipation Primary Care Physician: Peggy Nazario MD Provider Information Primary Provider: Koby Masterson DO Advanced Clerical Production Worker:None The exam and treatment you received in the Emergency Department were for an urgent problem and are not intended as complete care. It is important that you follow up with a doctor, nurse practitioner, or physician?s assistant baseball coach for ongoing care. If your symptoms become [...] Instructions: With: Address: When: Johan HENRIQUEZ [address] [place] [id number] [phone] Flotype (1) In 3 days 10/08/2023 With: Address: When: Peggy Nazario [address] [place] [phone] Flotype (1) In 3 days In the event that this physician does not participate in your insurance network, please consult with your insurance company to find a nearby participating provider. Patient Education Materials: Constipation, Adult, Yrxz-cj-Dpgw; Gastroesophageal Reflux Disease, Adult, Qaxq-ys-Aucr; Abdominal Pain, Adult, Kogz-oa-Dikd A MESSAGE TO ALL PATIENTS REGARDING OPIOIDS PRESCRIPTION OPIOIDS: WHAT YOU NEED TO KNOW Prescription opioids can be used to help relieve paodudkh-dl-nrsdqd pain and are often prescribed following a [...] ? If (more content not included)... Normal [facility] CNPNon 10-02-2023 CNPN Normal [facility] Echocardiographyon Echocardiography [id number]#1 .00TIFF [facility] Outside Cardiovascularon Outside Cardiovascular [id number]#1 .00TIFF [facility] Outside Cardiovascular [id number] .00TIFF Normal [facility] Outside Cardiovascular [id number]#1 .00TIFF Normal [facility] Outside Operativeon 09-27-19 24 Outside Operative [id number] .00TIFF Normal [facility] Outside Operative [id number] .00TIFF Normal [facility] Outside Radiologyon 09-27-19 24 Outside Radiology [id number] .00TIFF Normal [facility] Outside Radiology [id number]#1 .00TIFF Normal [facility] CBC panel Auto (Bld)on 09-26 Erythrocyte distribution width (RBC) [Ratio] 13.2 % Normal 11.5-15.0 [facility] Comment on above: Order Comment: Speci men Type: BLOOD SPECIMENOrdering Facility: [facility] Address: [address] [place] [address] Performed By: #### 5 8410-2 ####[facility] [id number] [place] [address] [place] Hematocrit (Bld) [Volume fraction] 38.1 % Normal 36.0-46.0 [facility] Comment on above: Order Comment: Speci men Type: BLOOD SPECIMENOrdering Facility: [facility] Address: [address] [place] [address] Performed By: #### 5 8410-2 ####[facility] [id number] [place] [address] [place] Hemoglobin (Bld) [Mass/Vol] 12.2 g/dL Normal 11.5-15.5 [facility] Comment on above: Order Comment: Speci men Type: BLOOD SPECIMENOrdering Facility: [facility] Address: [address] [place] [address] Performed By: #### 5 8410-2 ####[facility] [id number] [place] [address] [place] MCH (RBC) [Entitic mass] 29.5 pg Normal 26.0-34.0 [facility] Comment on above: Order Comment: Speci men Type: BLOOD SPECIMENOrdering Facility: [facility] Address: [address] [place] [address] Performed By: #### 5 8410-2 ####[facility] [id number] [place] [address] [place] MCHC (RBC) [Mass/Vol] 32.0 g/dL Normal 30.5-36.0 [facility] Comment on above: Order Comment: Speci men Type: BLOOD SPECIMENOrdering Facility: [facility] Address: [address] [place] [address] Performed By: #### 5 8410-2 ####[facility] [id number] [place] [address] [place] MCV (RBC) [Entitic vol] 92.0 fL Normal 80.0-100.0 [facility] Comment on above: Order Comment: Speci men Type: BLOOD SPECIMENOrdering Facility: [facility] Address: [address] [place] [address] Performed By: #### 5 8410-2 ####[facility] [id number] [place] [address] [place] Nucleated RBC (Bld) [#/Vol] 10*3/uL Normal <0.01 [facility] Comment on above: Order Comment: Speci men Type: BLOOD SPECIMENOrdering Facility: [facility] Address: [address] [place] [address] Performed By: #### 5 8410-2 ####[facility] [id number] [place] [address] [place] Platelet mean volume (Bld) [Entitic vol] 10.5 fL Normal 9.0-12.7 [facility] Comment on above: Order Comment: Speci men Type: BLOOD SPECIMENOrdering Facility: [facility] Address: [address] [place] [address] Performed By: #### 5 8410-2 ####[facility]CL[facility] [id number] [place] [address] [place] Platelets (Bld) [#/Vol] 195 10*3/uL Normal 150-400 [facility] Comment on above: Order Comment: Speci men Type: BLOOD SPECIMENOrdering Facility: [facility] Address: [address] [place] [address] Performed By: #### 5 8410-2 ####[facility]CL[facility] [id number] [place] [address] [place] RBC (Bld) [#/Vol] 4.14 10*6/uL Normal 3.90-5.20 [facility] Comment on above: Order Comment: Speci men Type: BLOOD SPECIMENOrdering Facility: [facility] Address: [address] [place] [address] Performed By: #### 5 8410-2 ####[facility] [id number] [place] [address] [place] WBC (Bld) [#/Vol] 6.03 10*3/uL Normal 3.70-11.00 [facility] Comment on above: Order Comment: Speci men Type: BLOOD SPECIMENOrdering Facility: [facility] Address: [address] [place] [address] Performed By: #### 5 8410-2 ####[facility]CL[facility] [id number] [place] [address] [place] [facility] CBC PNL BLD AUTOon 09-26 [facility] NRBC # BLD AUTO <0.01 [facility] PLATELET # BLD AUTO 195 [facility] PMV BLD AUTO 10.5 fL 9.0 - 12.7 fL [facility] WBC # BLD AUTO 6.03 [facility] Erythrocyte distribution width (RBC) [Ratio] 13.2 % 11.5 - 15.0 % [facility] Hematocrit (Bld) [Volume fraction] 38.1 % 36.0 - 46.0 % [facility] Hemoglobin (Bld) [Mass/Vol] 12.2 g/dL 11.5 - 15.5 g/dL [facility] MCH (RBC) [Entitic mass] 29.5 pg 26.0 - 34.0 pg [facility] MCHC (RBC) [Mass/Vol] 32.0 g/dL 30.5 - 36.0 g/dL [facility] MCV (RBC) [Entitic vol] 92.0 fL 80.0 - 100.0 fL [facility] RBC (Bld) [#/Vol] 4.14 10*6/uL 3.90 - 5.2 0 m/uL [facility] Specimen Type: BLOOD SPECIMEN Ordering Facility: [facility] Address: [address] [place] [address] Original Ordering Provider: ALEA GUZMAN [facility] CNOVon 09-26-2023 CNOV Normal [facility] CNPTOUTREACHon 09-26-2023 CNPTOUTREACH Normal [facility] Comprehensive metabolic 2000 panelon 09-26-2023 Albumin [Mass/Vol] 4.2 g/dL Normal 3.9-4.9 [facility] Comment on above: Order Comment: Speci men Type: BLOOD SPECIMENOrdering Facility: [facility] Address: [address] [place] [address] Performed By: #### 3 3762-6, 11249-2 ####[facility]CL[facility] [id number] [place] [address] [place] ALP [Catalytic activity/Vol] 57 U/L Normal 34-123 [facility] Comment on above: Order Comment: Speci men Type: BLOOD SPECIMENOrdering Facility: [facility] Address: [address] [place] [id number] Performed By: #### 3 3762-6, 95559-9 ####[facility]CL[facility] [id number] [place] [address] [place] ALT [Catalytic activity/Vol] 36 U/L Normal 7-38 [facility] Comment on above: Order Comment: Speci men Type: BLOOD SPECIMENOrdering Facility: [facility] Address: [address] [place] [address] Performed By: #### 3 3762-6, 53303-8 ####[facility]CL[facility] [id number] [place] [address] [place] Anion gap [Moles/Vol] 10 mmol/L Normal 9-18 [facility] Comment on above: Order Comment: Speci men Type: BLOOD SPECIMENOrdering Facility: [facility] Address: [address] [place] [address] Performed By: #### 3 3762-6, ####[facility]CL[facility] [id number] [place] [address] [place] AST [Catalytic activity/Vol] 29 U/L Normal 13-35 [facility] Comment on above: Order Comment: Speci men Type: BLOOD SPECIMENOrdering Facility: [facility] Address: [address] [place] [address] Performed By: #### 3 3762-6, 55153-3 ####[facility]CL[facility] [id number] [place] [id number] [place] Bilirubin [Mass/Vol] 0.6 mg/dL Normal 0.2-1.3 [facility] Comment on above: Order Comment: Speci men Type: BLOOD SPECIMENOrdering Facility: [facility] Address: [address] [place] [address] Performed By: #### 3 3762-6, 19558-6 ####[facility] LABCLIA [id number] [facility] [place] [address] [place] Calcium [Mass/Vol] 9.6 mg/dL Normal 8.5-10.2 [facility] Comment on above: Order Comment: Speci men Type: BLOOD SPECIMENOrdering Facility: [facility] Address: [address] [place] [address] Performed By: #### 3 3762-6, ####[facility] LABCLIA [id number] [place] [address] [place] Chloride [Moles/Vol] 100 mmol/L Normal 97-105 [facility] Comment on above: Order Comment: Speci men Type: BLOOD SPECIMENOrdering Facility: [facility] Address: [address] [place] [address] Performed By: #### 3 3762-6, ####[facility] LABCLIA [id number] [place] [address] [place] CO2 [Moles/Vol] 29 mmol/L Normal 22-30 [facility] Comment on above: Order Comment: Speci men Type: BLOOD SPECIMENOrdering Facility: [facility] Address: [address] [place] [address] Performed By: #### 3 3762-6, ####[facility] LABCLIA [id number] [place] [address] [place] Creatinine [Mass/Vol] 0.82 mg/dL Normal 0.58-0.96 [facility] Comment on above: Order Comment: Speci men Type: BLOOD SPECIMENOrdering Facility: [facility] Address: [address] [place] [address] Performed By: #### 3 3762-6, 95688-3 ####[facility] LABCLIA [id number] [place] [address] [place] Creatinine and Glomerular filtration rate.predicted panel (S/P/Bld) 75 mL/min/1.73m??? Normal >=60 [facility] Comment on above: Order Comment: Nichole becerra Type: BLOOD SPECIMENOrdering Facility: [facility] Address: [address] [place] [address] Result Comment: Shelley mated Glomerular Filtration Rate [...] actual GFR. Performed By: #### 3 3762-6, 51929-7 ####[facility] LABCLIA [id number] [place] [address] [place] Glucose [Mass/Vol] 129 mg/dL High 74-99 [facility] Comment on above: Order Comment: Nichole becerra Type: BLOOD SPECIMENOrdering Facility: [facility] Address: [address] [place] [address] Result Comment: The [place] [employer] (ADA) provides guidance for cutoff [...] Standards of Medical Care in Diabetes 2016, [place] [employer]. Diabetes Care. 2016.39(Suppl 1). Performed By: #### 3 3762-6, 21289-7 ####[facility] LABCLIA [id number] [place] [address] [place] Potassium [Moles/Vol] 4.3 mmol/L Normal 3.7-5.1 [facility] Comment on above: Order Comment: Speci men Type: BLOOD SPECIMENOrdering Facility: [facility] Address: [address] [place] [address] Performed By: #### 3 3762-6, 65235-7 ####[facility] LABCLIA [id number] [place] [address] [place] Protein [Mass/Vol] 6.4 g/dL Normal 6.3-8.0 [facility] Comment on above: Order Comment: Speci men Type: BLOOD SPECIMENOrdering Facility: [facility] Address: [address] [place] [address] Performed By: #### 3 3762-6, 47327-2 ####[facility] LABCLIA [id number] [place] [address] [place] Sodium [Moles/Vol] 139 mmol/L Normal 136-144 [facility] Comment on above: Order Comment: Speci men Type: BLOOD SPECIMENOrdering Facility: [facility] Address: [address] [place] [address] Performed By: #### 3 3762-6, ####[facility] LABCLIA [id number] [place] [address] [place] Urea nitrogen [Mass/Vol] 15 mg/dL Normal 7-21 [facility] Comment on above: Order Comment: Speci men Type: BLOOD SPECIMENOrdering Facility: [facility] Address: [address] [place] [address] Performed By: #### 3 3762-6, 36083-6 ####[facility] LABIA [id number] [place] [address] [place] [id number] 09-26-2023 ECG01 Normal [facility] NT-proBNP SerPl-mCncon 09-26 Natriuretic peptide.B prohormone N-Terminal [Mass/Vol] 2047 pg/mL High <450 [facility] Comment on above: Order Comment: Speci men Type: BLOOD SPECIMENOrdering Facility: [facility] Address: [address] [place] [address] Performed By: #### 3 3762-6, 97208-4 ####[facility] LABCLIA [id number] [place] [address] [place] URINALYSIS, REFLEX MICROSCOP ICon 09-26-2023 Bacteria LM.HPF (Urine sed) [#/Area] Few Abnormal None Seen /HPF [facility] Bilirubin Ql (U) Negative Negative [facility] Clarity (Unsp spec) Cloudy Abnormal Clear [facility] Color (U) Yellow Yellow [facility] Epithelial cells LM.HPF (Urine sed) [#/Area] Moderate [facility] Epithelial cells LM.HPF (Urine sed) [#/Area] Few Abnormal None Seen /HPF [facility] Glucose Test strip (U) [Mass/Vol] Negative Trace, Negative [facility] Hemoglobin Ql (U) 1+ Abnormal Negative, Trace [facility] Ketones Ql (U) Negative Negative, Trace [facility] Leukocyte esterase Test strip Ql (U) 500 Ghislaine/uL Abnormal Negative, 25 Ghislaine/uL [facility] Nitrite Ql (U) Negative Negative [facility] pH (U) 6.0 [pH] 5.0 - 8.0 [facility] Protein (U) [Mass/Vol] Negative Trace, Negative [facility] RBC LM.HPF (Urine sed) [#/Area] 3-5 /HPF Abnormal 0-3 /HPF [facility] Specific gravity (U) [Rel density] 1.013 1.005 - 1.030 [facility] Urobilinogen Ql (U) Normal Normal [facility] WBC LM.HPF (Urine sed) [#/Area] /[HPF] Abnormal 0-5 /HPF [facility] Bacteria LM.HPF (Urine sed) [#/Area] Few Abnormal None Seen [facility] Comment on above: Order Comment: Speci men Type: URINE SPECIMENOrdering Facility: [facility] Address: [address] [place] [address] Performed By: #### L [id number] ####[facility] LABCLIA [id number] [place] [address] [place] Bilirubin Ql (U) Negative Normal Negative [facility] Comment on above: Order Comment: Speci men Type: URINE SPECIMENOrdering Facility: [facility] Address: [address] [place] [address] Performed By: #### L [id number] ####[facility] LABCLIA [id number] [place] [address] [place] Clarity (Unsp spec) Cloudy Abnormal Clear [facility] Comment on above: Order Comment: Speci men Type: URINE SPECIMENOrdering Facility: [facility] Address: [address] [place] [address] Performed By: #### L [id number] ####[facility] LABCLIA [id number] [place] [address] [place] Color (U) Yellow Normal Yellow [facility] Comment on above: Order Comment: Speci men Type: URINE SPECIMENOrdering Facility: [facility] Address: [address] [place] [address] Performed By: #### L [id number] ####[facility] LABCLIA [id number] [place] [address] [place] Epithelial cells LM.HPF (Urine sed) [#/Area] Moderate Normal [facility] Comment on above: Order Comment: Speci men Type: URINE SPECIMENOrdering Facility: [facility] Address: [address] [place] [address] Result Comment: Few Performed By: #### L [id number] ####[facility] LABCLIA [id number] [place] [address] [place] Glucose Test strip (U) [Mass/Vol] Negative Normal Trace, Negative [facility] Comment on above: Order Comment: Speci men Type: URINE SPECIMENOrdering Facility: [facility] Address: [address] [place] [address] Performed By: #### L [id number] ####[facility] LABCLIA [id number] [place] [address] [place] Hemoglobin Ql (U) 1+ Abnormal Negative, Trace [facility] Comment on above: Order Comment: Speci men Type: URINE SPECIMENOrdering Facility: [facility] Address: [address] [place] [address] Performed By: #### L [id number] ####[facility] LABCLIA [id number] [place] [address] [place] Ketones Ql (U) Negative Normal Negative, Trace [facility] Comment on above: Order Comment: Speci men Type: URINE SPECIMENOrdering Facility: [facility] Address: [address] [place] [address] Performed By: #### L [id number] ####[facility] LABCLIA [id number] [place] [address] [place] Leukocyte esterase Test strip Ql (U) 500 Ghislaine/uL Abnormal Negative, 25 Ghislaine/uL [facility] Comment on above: Order Comment: Speci men Type: URINE SPECIMENOrdering Facility: [facility] Address: [address] [place] [address] Performed By: #### L [id number] ####[facility] LABCLIA [id number] [place] [address] [place] Nitrite Ql (U) Negative Normal Negative [facility] Comment on above: Order Comment: Speci men Type: URINE SPECIMENOrdering Facility: [facility] Address: [address] [place] [address] Performed By: #### L [id number] ####[facility] LABCLIA [id number] [place] [address] [place] pH (U) 6.0 [pH] Normal 5.0-8.0 [facility] Comment on above: Order Comment: Speci men Type: URINE SPECIMENOrdering Facility: [facility] Address: [address] [place] [address] Performed By: #### L [id number] ####[facility] LABIA [id number] [place] [address] [place] Protein (U) [Mass/Vol] Negative Normal Trace, Negative [facility] Comment on above: Order Comment: Speci men Type: URINE SPECIMENOrdering Facility: [facility] Address: [address] [place] [address] Performed By: #### L [id number] ####[facility] LABIA [id number] [place] [address] [place] RBC LM.HPF (Urine sed) [#/Area] 3-5 /HPF Abnormal 0-3 /HPF [facility] Comment on above: Order Comment: Speci men Type: URINE SPECIMENOrdering Facility: [facility] Address: [address] [place] [address] Performed By: #### L [id number] ####[facility] [id number] [place] [address] [place] Specific gravity (U) [Rel density] 1.013 Normal 1.005-1.030 [facility] Comment on above: Order Comment: Speci men Type: URINE SPECIMENOrdering Facility: [facility] Address: [address] [place] [address] Performed By: #### L [id number] ####[facility] [id number] [place] [address] [place] Urobilinogen Ql (U) Normal Normal Normal [facility] Comment on above: Order Comment: Speci men Type: URINE SPECIMENOrdering Facility: [facility] Address: [address] [place] [address] Performed By: #### L [id number] ####[facility] LABIA [id number] [place] [address] [place] WBC LM.HPF (Urine sed) [#/Area] /[HPF] Abnormal 0-5 /HPF [facility] Comment on above: Order Comment: Speci men Type: URINE SPECIMENOrdering Facility: [facility] Address: [address] [place] [address] Performed By: #### L [id number] ####[facility] LABCLIA [id number] [id number] [address] [place] CNPNon 09-21-2023 CNPN Normal [facility] BMPon 09-17-2023 Anion gap [Moles/Vol] 9 mmol/L Normal 6-16 [facility] Comment on above: Performed By: #### 2 637084, 30347418, 1733631, 4174035, 2554196, 8030005 #### [facility] [address] [place] [address] BUN/Creat Ratio 24 No Units High 10-20 [facility] Comment on above: Performed By: #### 2 929495, 73705466, 2664090, 8665779, 3525644, 3681203 #### [facility] [address] [place] [address] Calcium [Mass/Vol] 9.1 mg/dL Normal 8.9-11.1 [facility] Comment on above: Performed By: #### 2 384670, 84893676, 6799938, 1404337, 3100125, 2870567 #### [facility] [address] [place] [address] Chloride [Moles/Vol] 105 mmol/L Normal 101-111 [facility] Comment on above: Performed By: #### 2 025339, 88584662, 6122970, 1104718, 7462915, 0974884 #### [facility] [address] [place] [address] CO2 [Moles/Vol] 28 mmol/L Normal 21-31 [facility] Comment on above: Performed By: #### 2 363074, 36012192, 6021667, 9947447, 3414126, 4343867 #### [facility] [address] [place] [address] Creatinine [Mass/Vol] 0.7 mg/dL Normal 0.5-1.3 [facility] Comment on above: Performed By: #### 2 859724, 25167022, 1895818, 7838986, 7441784, 5902957 #### [facility] [address] [place] [address] Glucose [Mass/Vol] 83 mg/dL Normal 55-199 [facility] Comment on above: Performed By: #### 2 090909, 89130693, 1882076, 8165633, 7014521, 4636782 #### [facility] [address] [place] [address] Potassium [Moles/Vol] 4.0 mmol/L Normal 3.5-5.3 [facility] Comment on above: Performed By: #### 2 802174, 21544124, 0597906, 4448541, 5847723, 2779405 #### [facility] [address] [place] [address] Sodium [Moles/Vol] 138 mmol/L Normal 135-145 [facility] Comment on above: Performed By: #### 2 940080, 21560711, 4376587, 4461997, 1635473, 6575977 #### [facility] [address] [place] [address] Urea nitrogen [Mass/Vol] 17 mg/dL Normal 5-21 [facility] Comment on above: Performed By: #### 2 735205, 43849452, 3408215, 7462299, 4517058, 2378277 #### [facility] [address] [place] [address] CBC w/ Auto Diffon 4 Basophil Absolute 0.1 E9/L Normal 0.0-0.2 [facility] Comment on above: Performed By: #### 2 144126, 01490712, 3671894, 4649206, 6229748, 9278587 #### [facility] [address] [place] [address] Basophils/100 WBC (Bld) 0.9 % Normal 0.0-2.0 [facility] Comment on above: Performed By: #### 2 952176, 96861830, 8967424, 5463530, 9709744, 9528140 #### [facility] [address] [place] [address] Eos Absolute 0.0 E9/L Normal 0.0-0.5 [facility] Comment on above: Performed By: #### 2 658689, 34084759, 1597502, 8902549, 2318937, 9042889 #### [facility] [address] [place] [address] Eosinophils/100 WBC (Bld) 0.7 % Normal 0.0-8.0 [facility] Comment on above: Performed By: #### 2 606815, 44503178, 2150399, 1563337, 3440540, 4582493 #### [facility] [address] [place] [address] Erythrocyte distribution width (RBC) [Ratio] 14.1 % Normal 10.9-14.2 [facility] Comment on above: Performed By: #### 2 543715, 33849195, 4187893, 3656411, 5570600, 0162092 #### [facility] [address] [place] [address] Hematocrit (Bld) [Volume fraction] 36.0 % Normal 34.0-46.0 [facility] Comment on above: Performed By: #### 2 888183, 76580964, 2940207, 8590348, 8124543, 3973582 #### [facility] [address] [place] [address] Hemoglobin (Bld) [Mass/Vol] 12.2 g/dL Normal 12.0-16.0 [facility] Comment on above: Performed By: #### 2 463922, 16372604, 3344250, 8575045, 4634959, 5707060 #### [facility] [address] [place] [address] Lymph Absolute 2.1 E9/L Normal 1.0-4.[address] [facility] Comment on above: Performed By: #### 2 406454, 94196286, 2956957, 0525200, 0940785, 2868935 #### [facility] [address] [place] [address] Lymphocytes/100 WBC (Bld) 31.6 % Normal 14.0-50.0 [facility] Comment on above: Performed By: #### 2 433900, 81593880, 3146478, 0824002, 0245461, 4041325 #### [facility] [address] [place] [address] MCH (RBC) [Entitic mass] 30.0 pg Normal 27.0-34.0 [facility] Comment on above: Performed By: #### 2 396139, 77189825, 9559684, 8466555, 7640223, 2142722 #### [facility] [address] [place] [address] MCHC (RBC) [Mass/Vol] 34.1 g/dL Normal 31.4-36.0 [facility] Comment on above: Performed By: #### 2 671015, 11003635, 0519839, 5888234, 3839275, 8070189 #### [facility] [address] [place] [address] MCV (RBC) [Entitic vol] 88.0 fL Normal 80.0-100.0 [facility] Comment on above: Performed By: #### 2 009738, 69889774, 8343520, 6913218, 1910542, 9606502 #### [facility] [address] [place] [address] [place] Absolute 0.6 E9/L Normal 0.2-1.0 [facility] Comment on above: Performed By: #### 2 928626, 40287574, 9318975, 8540226, 5326235, 0479473 #### [facility] [address] [place] [address] Monocytes/100 WBC (Bld) 9.5 % Normal 4.0-14.0 [facility] Comment on above: Performed By: #### 2 352259, 38550279, 5746404, 6608798, 1307729, 7613464 #### [facility] [address] [place] [address] Neutro Absolute 3.8 E9/L Normal 2.0-7.5 [facility] Comment on above: Performed By: #### 2 959461, 19498795, 6852167, 3482250, 2116604, 1559524 #### [facility] [address] [place] [address] Neutro Auto 57.3 % Normal 36.0-75.0 [facility] Comment on above: Performed By: #### 2 751032, 24619637, 3507048, 3072140, 0918628, 7375568 #### [facility] [address] [place] [address] Platelet 186.0 E9/L Normal 150.0-500.0 [facility] Comment on above: Performed By: #### 2 953266, 55035516, 9171703, 8037205, 1721796, 5429158 #### [facility] [address] [place] [address] Platelet mean volume (Bld) [Entitic vol] 8.0 fL Normal 6.4-10.8 [facility] Comment on above: Performed By: #### 2 596691, 65014994, 1501098, 4389202, 3912114, 4835911 #### [facility] [address] [place] [address] RBC 4.1 E12/L Low 4.3-5.9 [facility] Comment on above: Performed By: #### 2 351535, 10497027, 8538479, 8586948, 9931434, 1509106 #### [facility] [address] [place] [address] WBC 6.6 E9/L Normal 4.0-11.0 [facility] Comment on above: Performed By: #### 2 528506, 50019889, 0218372, 7437438, 8395488, 2066950 #### [facility] [address] [place] [address] CHEMISTRYOrdered By: SYSTEM SYSTEM on 09-17-2023 Anion [...] Sensitivity Troponin I Instructions For Use, [facility], March 2018) Urea nitrogen [Mass/Vol] 17 mg/dL Normal 5 - 21 mg/dL [facility] Urea nitrogen/Creatinine [Mass ratio] 24 mg/mg High 10 - 20 [facility] CHEMISTRYOrdered By: Lab ROP User on 09-17-2023 Glucose [Mass/Vol] 79 mg/dL Normal 55 - 99 mg/dL [facility] POC Subsection Comment on above: Result Comment: Neli cain RN/ POC Device SN [id number] 1 Invalid Interpretation Code [facility] POC Subsection POC User ID [id number] 1 Invalid Interpretation Code [facility] POC Subsection POC Username ZIGGY HOLGUIN Invalid Interpretation Code [facility] POC Subsection CNPNon 09-17-2023 CNPN Normal [facility] COAGULATIONOrdered By: Han Frost on 09-17-2023 aPTT Coag (PPP) [Time] 38.2 s High 25.1 - 36.5 second(s) [facility] Auto Coag Comment on above: Interpretive Data: [...] the same coagulation reagent and instrumentation as [facility]. Currently there are no coagulation studies available worldwide for children to 14 days, and no normal ranges. Heparin therapeutic range (represented by Anti-Factor Xa activity of 0.2 - 0.4 U/mL) corresponds to PTT of 56.6 - 109.0 sec. INR Coag (PPP) [Relative time] 1.4 {INR} Invalid Interpretation Code [facility] Auto Coag Comment on above: Interpretive Data: I NR results are specifically intended to assess patients stabilized on long-term Anticoagulation therapy suggested INR s Less Intensive Anticoagulation 2.0 3.0 Conventional Range 3.0 4.5 PT Coag (PPP) [Time] 16.4 s High 9.4 - 1 2.5 second(s) [facility] Auto Coag Comment on above: Interpretive Data: [...] the same coagulation reagent and instrumentation as [facility]. Currently there are no coagulation studies available worldwide for children to 14 days, and no normal ranges. Capillary Glucose POCon Glucose [Mass/Vol] 79 mg/dL Normal 55-99 [facility] Comment on above: Result Comment: Neli cain RN/ Performed By: #### 2 [id number] ####[facility] [address] [place] [address] Consent for Treatmenton Consent for Treatment [id number] .[id number] Normal [facility] Discharge Instructionson Discharge Instructions [id number] 1.00TIFF Normal [facility] ED Clinical Summaryon 2023 ED Clinical Summary [address] [address] ED Clinical Summary Person Information Name: HARJIT ASENCIO I [place] Age: 73 Years : 1950 Sex: Female Language: Qatari PCP: Peggy Nazario MD Marital Status: Visit [...] 09/17/2023 06:16:25 09/17/2023 06:16:25 09/17/2023 06:16:25 ADDRESS: [address] [place] [address] [address] [facility] [id number] PHYS DOC NOTES: MEDICAL INFORMATION: Prescriptions Given: [...] Address: When: Peggy Nazario [address] [place] [address] Business (1) In 3 days DIAGNOSIS: Acid reflux; Medication reaction Normal [facility] ED Note-Physicianon 09-17-19 ED Note-Physician Basic [...] and Complexity of Problems Differential Diagnosis: [] [facility] Data External documents reviewed: N/A My [...] Nazario In [address] [place] [address]- Business (1) Additional Instructions: Patient [...] (02/01/2019), C (more content not included)... Normal [facility] Comment on above: Result Comment: Elec [...] vinegar, hot sauces, and barbecue sauce. ? [place] fruit juices and citrus fruits, such as oranges, ronald, and limes. ? Tomato-based foods, such as red sauce, chili, salsa, and pizza with red sauce. ? Fried and fatty foods, such as donuts, swiss fries, potato chips, and high-fat dressings. ? [...] your health care provider. Medicines ? Take xzfb-bjn-nbygfte and prescription medicines only as told by [...] by your health care provider. ? Take osra-usl-udsqdgz and prescription medicines only as told by [...] provider. Document Revised: 02/03/2021 Document Reviewed: 02/03/2021 [employer] Patient Education ? 2022 [employer]. Pharmacology Drug Allergy A drug allergy happens when the body's disease-fighting system (immune system) reacts badly to a medicine. Drug allergies range from mild to severe. A drug allergy is not the same as a medicine side effect, which is a known possible reaction to the drug. A drug allergy is a (more content not included)... Normal [facility] ED Patient Summaryon 024 ED Patient Summary [place] [address] Patient Discharge Instructions Person Information Name: HARJIT ASENCIO I Age: 73 Years Arrival Date: 09/17/2023 04:55:16 Discharge Diagnosis: Acid reflux; Medication reaction Primary Care Physician: Aravind MCMAHON, Peggy Mcmillan Provider Information Primary Provider: Parveen Ayers DO Advanced Clerical Production Worker:None The exam and treatment you received in the Emergency Department were for an urgent problem and are not intended as complete care. It is important that you follow up with a doctor, nurse practitioner, or physician?s assistant baseball coach for ongoing care. If your symptoms become [...] Address: When: Peggy Nazario [address] [place] [address] Business (1) In 3 days In the event that this physician does not participate in your insurance network, please consult with your insurance company to find a nearby participating provider. Patient Education Materials: Drug Allergy; Heartburn A MESSAGE TO ALL PATIENTS REGARDING OPIOIDS PRESCRIPTION OPIOIDS: WHAT YOU NEED TO KNOW Prescription opioids can be used to help relieve ohysqkah-cn-nigetn pain and are often prescribed following a [...] be struggling with addiction, tell your health care worker and ask for guidance or call [facility]?S National Helpline at 8-596-190-IYHI. b Source: [place] Department of Health and (more content not included)... Normal [facility] HEMATOLOGYOrdered By: SYSTEM SYSTEM on 09-17-2023 [...] Normal 80.0 - 100.0 fL Remisol Heme [place] Absolute 0.6 E9/L Normal 0.2 - 1.0 [...] Remisol Heme Monitor Recordon 09-17-2023 Monitor Record [id number]# 1.00TIFF Normal [facility] PT & PTTon 09-17-2023 aPTT Coag (PPP) [Time] 38.2 second(s) High 25.1-36.5 [facility] Comment on above: Result Comment: Para [...] the same coagulation reagent and instrumentation as [facility]. Currently there are no coagulation studies available worldwide for children to 14 days, and no normal ranges. Heparin therapeutic range (represented by Anti-Factor Xa activity of 0.2 - 0.4 U/mL) corresponds to PTT of 56.6 - 109.0 sec. Performed By: #### 2 796621, 19626907, 9519271, 2391163, 2030292, 7390429 #### [facility] [address] [place] [address] INR Coag (PPP) [Relative time] 1.4 {INR} Invalid Interpretation Code [facility] Comment on above: Result Comment: INR results are specifically intended to assess patients stabilized on long-term Anticoagulation therapy suggested INR?s ?Less Intensive Anticoagulation? 2.0 ? 3.0 Conventional Range 3.0 ? 4.5 Performed By: #### 2 489875, 96333365, 7452793, 1380956, 7195954, 0339588 #### [facility] [address] [place] [address] PT Coag (PPP) [Time] 16.4 second(s) High 9.4-12.5 [facility] Comment on above: Result Comment: 15 [...] the same coagulation reagent and instrumentation as [facility]. Currently there are no coagulation studies available worldwide for children to 14 days, and no normal ranges. Performed By: #### 2 984416, 84899041, 5188969, 5426310, 7890620, 0751407 #### [facility] [address] [place] [address] Troponin 0 Hr.on 09-17-2023 Troponin 11.70 pg/mL Normal 10.10-27.10 [facility] Comment on above: Result Comment: The 95% CI (Confidence Interval) PPV (Positive Predictive Value) for myocardial infarction in females is 38 pg/mL, in males 51 pg/mL. The results should be used in conjunction with clinical conditions of myocardial infarction. (Access High Sensitivity Troponin I Instructions For Use, Marlys Vantage, March 2018) Performed By: #### 2 133665, 02403201, 7763679, 5800814, 0768797, 8454397 #### [facility] [address] [place] [address] XR Chest Single Viewon 09-17 XR Chest [...] mGy = na DAP = na Normal [facility] eGFRon 09-17-2023 eGFR 90 mL/min/1.73 m2 Normal >=59 [facility] Comment on above: Order Comment: Order added by Discern Expert. Performed By: #### 2 122547, 72922474, 1657360, 3388103, 7928605, 4470695 #### [facility] [address] [place] [address] BMPon 09-12-2023 Anion gap [Moles/Vol] 12 mmol/L Normal 6-16 [facility] Comment on above: Performed By: #### 2 707107, 14868187, 4887141, 8681758, 7181155, 2182603 #### [facility] [address] [place] [address] BUN/Creat Ratio 27 No Units High 10-20 [facility] Comment on above: Performed By: #### 2 198699, 44725312, 5133686, 7444683, 6650746, 5939078 #### [facility] [address] [place] [address] Calcium [Mass/Vol] 9.5 mg/dL Normal 8.9-11.1 [facility] Comment on above: Performed By: #### 2 907487, 45345800, 2906276, 7226210, 7310093, 5400114 #### [facility] [address] [place] [address] Chloride [Moles/Vol] 101 mmol/L Normal 101-111 [facility] Comment on above: Performed By: #### 2 197244, 18720491, 3849208, 2955882, 7051983, 6193847 #### [facility] [address] [place] [address] CO2 [Moles/Vol] 27 mmol/L Normal 21-31 [facility] Comment on above: Performed By: #### 2 140724, 36383508, 3114386, 3363727, 3332219, 6408405 #### [facility] [address] [place] [address] Creatinine [Mass/Vol] 0.9 mg/dL Normal 0.5-1.3 [facility] Comment on above: Performed By: #### 2 673553, 64748651, 1133736, 5173965, 1792185, 2442732 #### [facility] [address] [place] [address] Glucose [Mass/Vol] 87 mg/dL Normal 55-199 [facility] Comment on above: Performed By: #### 2 150424, 51662941, 6364455, 9624513, 4632650, 9187502 #### [facility] [address] [place] [address] Potassium [Moles/Vol] 4.9 mmol/L Normal 3.5-5.3 [facility] Comment on above: Performed By: #### 2 957478, 35537983, 3999889, 2223557, 5477616, 2973181 #### [facility] [address] [place] [address] Sodium [Moles/Vol] 135 mmol/L Normal 135-145 [facility] Comment on above: Performed By: #### 2 789800, 22201990, 4540040, 1773639, 2136016, 4077718 #### [facility] [address] [place] [address] Urea nitrogen [Mass/Vol] 24 mg/dL High 5-21 [facility] Comment on above: Performed By: #### 2 918400, 77494096, 1006993, 2635433, 0147160, 2129484 #### [facility] [address] [place] [address] CBC w/ Auto Diffon 4 Basophil Absolute 0.1 E9/L Normal 0.0-0.2 [facility] Comment on above: Performed By: #### 2 881717, 41698250, 7426276, 2061591, 7511497, 9678775 #### [facility] [address] [place] [address] Basophils/100 WBC (Bld) 1.1 % Normal 0.0-2.0 [facility] Comment on above: Performed By: #### 2 002374, 85517667, 2244719, 0673442, 6148013, 8236940 #### [facility] [address] [place] [address] Eos Absolute 0.1 E9/L Normal 0.0-0.5 [facility] Comment on above: Performed By: #### 2 747867, 79911658, 2354892, 1509087, 5865351, 9743336 #### [facility] [address] [place] [address] Eosinophils/100 WBC (Bld) 1.2 % Normal 0.0-8.0 [facility] Comment on above: Performed By: #### 2 666562, 31848866, 8615411, 1732711, 3075916, 4733649 #### [facility] [address] [place] [address] Erythrocyte distribution width (RBC) [Ratio] 13.7 % Normal 10.9-14.2 [facility] Comment on above: Performed By: #### 2 494195, 75878883, 1169269, 5980259, 6465273, 4477865 #### [facility] [address] [place] [address] Hematocrit (Bld) [Volume fraction] 41.0 % Normal 34.0-46.0 [facility] Comment on above: Performed By: #### 2 813628, 16673810, 6952443, 2699428, 7894794, 3415639 #### [facility] [address] [place] [address] Hemoglobin (Bld) [Mass/Vol] 13.4 g/dL Normal 12.0-16.0 [facility] Comment on above: Performed By: #### 2 351614, 11403630, 4122506, 3304546, 8781171, 7736213 #### [facility] [address] [place] [address] Lymph Absolute 1.9 E9/L Normal 1.0-4.[address] [facility] Comment on above: Performed By: #### 2 563755, 31176878, 8023165, 7757754, 0725364, 9428205 #### [facility] [address] [place] [address] Lymphocytes/100 WBC (Bld) 25.9 % Normal 14.0-50.0 [facility] Comment on above: Performed By: #### 2 165195, 85231379, 7025273, 4147157, 3258321, 0493332 #### [facility] [address] [place] [address] MCH (RBC) [Entitic mass] 29.5 pg Normal 27.0-34.0 [facility] Comment on above: Performed By: #### 2 264062, 80947001, 6481250, 1629554, 4485487, 0503279 #### [facility] [address] [place] [address] MCHC (RBC) [Mass/Vol] 32.9 g/dL Normal 31.4-36.0 [facility] Comment on above: Performed By: #### 2 701552, 48694027, 0117775, 8789622, 4518302, 7861073 #### [facility] [address] [place] [address] MCV (RBC) [Entitic vol] 89.6 fL Normal 80.0-100.0 [facility] Comment on above: Performed By: #### 2 634984, 97452472, 1493678, 9687970, 7418547, 5975770 #### [facility] [address] [place] [address] [place] Absolute 0.6 E9/L Normal 0.2-1.0 [facility] Comment on above: Performed By: #### 2 994994, 15006741, 5959811, 5851655, 0209929, 1228409 #### [facility] [address] [place] [address] Monocytes/100 WBC (Bld) 8.0 % Normal 4.0-14.0 [facility] Comment on above: Performed By: #### 2 247218, 11362666, 7166391, 7876970, 5358175, 1556118 #### [facility] [address] [place] [address] Neutro Absolute 4.7 E9/L Normal 2.0-7.5 [facility] Comment on above: Performed By: #### 2 342391, 40019028, 5490104, 6408572, 0512855, 6623120 #### [facility] [address] [place] [address] Neutro Auto 63.8 % Normal 36.0-75.0 [facility] Comment on above: Performed By: #### 2 871047, 60377250, 7039755, 7619037, 3974307, 4364637 #### [facility] [address] [place] [address] Platelet 214.0 E9/L Normal 150.0-500.0 [facility] Comment on above: Performed By: #### 2 565362, 84000814, 8873487, 4115483, 4374214, 5385669 #### [facility] [address] [place] [address] Platelet mean volume (Bld) [Entitic vol] 8.2 fL Normal 6.4-10.8 [facility] Comment on above: Performed By: #### 2 985914, 08015030, 5460892, 7117770, 1307769, 6231815 #### [facility] [address] [place] [address] RBC 4.6 E12/L Normal 4.3-5.9 [facility] Comment on above: Performed By: #### 2 421293, 89250854, 2652488, 1714911, 6379414, 9948275 #### [facility] [address] [place] [address] WBC 7.4 E9/L Normal 4.0-11.0 [facility] Comment on above: Performed By: #### 2 975174, 73529442, 1820086, 7623409, 4910966, 4153555 #### [facility] [address] [place] [address] CHEMISTRYOrdered By: Maryan Frost on 09-12-2023 U [...] Sensitivity Troponin I Instructions For Use, Marlys Vantage, March 2018) Urea nitrogen [Mass/Vol] 24 mg/dL High 5 - 21 mg/dL [facility] Urea nitrogen/Creatinine [Mass ratio] 27 mg/mg High 10 - 20 [facility] CHEMISTRYOrdered By: Lab ROP User on 09-12-2023 Glucose [Mass/Vol] 96 mg/dL Normal 55 - 99 mg/dL [facility] POC Subsection Comment on above: Result Comment: Neli cain RN/ POC Device SN [id number] Invalid Interpretation Code [facility] POC Subsection POC User ID [id number] 1 Invalid Interpretation Code [facility] POC Subsection POC Username CORINNE COTA Invalid Interpretation Code [facility] POC Subsection CNPNon 09-12-2023 CNPN Normal [facility] CT Head or Brain w/o Contras [...] Technologist: JON Technical Comments Contrast: None Normal [facility] Capillary Glucose POCon 08-16 Glucose [Mass/Vol] 96 mg/dL Normal 55-99 [facility] Comment on above: Result Comment: Neli cain RN/ Performed By: #### 2 307316, 82589788, 6772245, 3295433, 1052005, 7485919 #### [facility] [address] [place] [address] Consent for Treatmenton 08-16 Consent for Treatment [id number] .00TIFF Normal [facility] Discharge Instructionson Discharge Instructions [id number] .00TIFF Normal [facility] ED Clinical Summaryon 2023 ED Clinical Summary [address] [address] ED Clinical Summary Person Information Name: HARJIT ASENCIO I [place] Age: 73 Years : 1950 Sex: Female Language: Qatari PCP: Peggy Nazario MD Marital Status: Visit [...] 09/12/2023 06:47:40 09/12/2023 06:47:40 09/12/2023 06:47:40 ADDRESS: [address] [place] [address] [address] [facility] [id number] PHYS DOC NOTES: MEDICAL INFORMATION: Prescriptions Given: [...] Address: When: Peggy Nazario [address] [place] [address] Flotype (1) In 3 days DIAGNOSIS: Acid reflux; Tremor Normal [facility] ED Note-Physicianon 09-12-19 ED Note-Physician Basic [...] and Complexity of Problems Differential Diagnosis: [] [facility] Data External documents reviewed: N/A My [...] Information Peggy Nazario In 3 days [address] [place] [address] Business (1) Additional Instructions: Patient Education Tremor [...] urethral stri (more content not included)... Normal [facility] Comment on above: Result Comment: Elec [...] vinegar, hot sauces, and barbecue sauce. ? [place] fruit juices and citrus fruits, such as oranges, ronald, and limes. ? Tomato-based foods, such as red sauce, chili, salsa, and pizza with red sauce. ? Fried and fatty foods, such as donuts, swiss fries, potato chips, and high-fat dressings. ? [...] safe [place] (more content not included)... Normal [facility] ED Patient Summaryon 024 ED Patient Summary [address] [address] Patient Discharge Instructions Person Information Name: HARJIT ASENCIO I Age: 73 Years Arrival Date: 09/12/2023 04:02:15 Discharge Diagnosis: Acid reflux; Tremor Primary Care Physician: Peggy Nazario MD Provider Information Primary Provider: Parveen Ayers DO Advanced Clerical Production Worker:None The exam and treatment you received in the Emergency Department were for an urgent problem and are not intended as complete care. It is important that you follow up with a doctor, nurse practitioner, or physician?s assistant baseball coach for ongoing care. If your symptoms become [...] With: Address: When: Peggy Nazario [address] [place] [address] Business (1) In 3 days In the event that this physician does not participate in your insurance network, please consult with your insurance company to find a nearby participating provider. Patient Education Materials: Tremor; Gastroesophageal Reflux Disease, Adult A MESSAGE TO ALL PATIENTS REGARDING OPIOIDS PRESCRIPTION OPIOIDS: WHAT YOU NEED TO KNOW Prescription opioids can be used to help relieve kuyiyqgy-sr-osjqpr pain and are often prescribed following a [...] be struggling with addiction, tell your health care worker and ask for guidance or call [facility]?S National Helpline at 4-208-112-CVJK. w Source: Department of (more content not included)... Normal [facility] HEMATOLOGYOrdered By: SYSTEM SYSTEM on 09-12-2023 [...] Normal 80.0 - 100.0 fL Remisol Heme [place] Absolute 0.6 E9/L Normal 0.2 - 1.0 [...] Remisol Heme Monitor Recordon 09-12-2023 Monitor Record [id number]# 1.00TIFF Normal [facility] Troponin 0 Hr.on 09-12-2023 Troponin 12.70 pg/mL Normal 10.10-27.10 [facility] Comment on above: Result Comment: The 95% CI (Confidence Interval) PPV (Positive Predictive Value) for myocardial infarction in females is 38 pg/mL, in males 51 pg/mL. The results should be used in conjunction with clinical conditions of myocardial infarction. (Access High Sensitivity Troponin I Instructions For Use, Marlys Vantage, March 2018) Performed By: #### 2 580687, 12372014, 4756560, 0769302, 6705612, 0508570 #### [facility] [address] [place] [address] U Drug Screenon 09-12-2023 U Amph Scr Negative Invalid Interpretation Code [facility] Comment on above: Performed By: #### 2 046484, 47715679, 8049369, 3586652, 4105641, 2600655 #### [facility] [address] [place] [address] U Hayley Scr Negative Invalid Interpretation Code [facility] Comment on above: Performed By: #### 2 925542, 27580927, 9332054, 9853738, 1039740, 5897662 #### [facility] [address] [place] [address] U Benzodia Scr Negative Invalid Interpretation Code [facility] Comment on above: Performed By: #### 2 716818, 97426593, 8182775, 5234809, 9263499, 1797463 #### [facility] [address] [place] [address] U Cannab Scr Negative Invalid Interpretation Code [facility] Comment on above: Performed By: #### 2 555466, 93211641, 8865883, 4097245, 2189123, 2059425 #### [facility] [address] [place] [address] U Cocaine Scr Negative Invalid Interpretation Code [facility] Comment on above: Performed By: #### 2 370726, 63972921, 9974544, 8966521, 0196151, 0427672 #### [facility] [address] [place] [address] U Opiate Scr Negative Invalid Interpretation Code [facility] Comment on above: Performed By: #### 2 295579, 72462880, 6034344, 3695121, 3840463, 7363069 #### [facility] [address] [place] [address] U PCP Scr Negative Invalid Interpretation Code [facility] Comment on above: Performed By: #### 2 886240, 97802541, 2610353, 6449815, 7470665, 6553329 #### [facility] [address] [place] [address] UA With Cult Reflexon 2023 Bilirubin Ql (U) Negative Normal Negative [facility] Comment on above: Performed By: #### 1 3959336 #### [facility] [address] [place] [address] Clarity (U) CLEAR Normal Clear [facility] Comment on above: Performed By: #### 1 2925961 #### [facility] [address] [place] [address] Color (U) STRAW Invalid Interpretation Code [facility] Comment on above: Performed By: #### 1 9890236 #### [facility] [address] [place] [address] Epithelial cells.squamous LM.HPF (Urine sed) [#/Area] 0-2 Normal 0-2 [facility] Comment on above: Performed By: #### 1 1040989 #### [facility] [address] [place] [address] Glucose Test strip (U) [Mass/Vol] Negative Normal Negative [facility] Comment on above: Performed By: #### 1 4447077 #### [facility] [address] [place] [address] Hemoglobin Ql (U) 1+ Abnormal Negative [facility] Comment on above: Performed By: #### 1 0286876 #### [facility] [address] [place] [address] Ketones (U) [Mass/Vol] Negative Normal Negative [facility] Comment on above: Performed By: #### 1 5768058 #### [facility] [address] [place] [address] [place].plasma/Lithiu m.RBC (Bld) [Mass ratio] 0-3 Normal 0-3 [facility] Comment on above: Performed By: #### 1 1154538 #### [facility] [address] [place] [address] Nitrite Ql (U) Negative Normal Negative [facility] Comment on above: Performed By: #### 1 6750716 #### [facility] [address] [place] [address] pH (U) 7.0 [pH] Invalid Interpretation Code 5.0-9.0 [facility] Comment on above: Performed By: #### 1 9607089 #### [facility] [address] [place] [address] Protein (U) [Mass/Vol] Negative Normal Negative [facility] Comment on above: Performed By: #### 1 9819916 #### [facility] [address] [place] [address] Specific gravity (U) [Rel density] <=1.005 Invalid Interpretation Code 1.005-1.030 [facility] Comment on above: Performed By: #### 1 1431505 #### [facility] [address] [place] [address] Type of Urine collection method Clean Catch Normal [facility] Comment on above: Performed By: #### 1 0558661 #### [facility] [address] [place] [address] Urobilinogen Qn (U) 0.2 {Judith'U}/dL Normal 0.0-1.0 [facility] Comment on above: Performed By: #### 1 5790383 #### [facility] [address] [place] [address] WBC Auto Ql (U) TRACE Abnormal Negative [facility] Comment on above: Performed By: #### 1 0448306 #### [facility] [address] [address] WBC LM.HPF (Urine sed) [#/Area] 0-5 Normal 0-5 [facility] Comment on above: Performed By: #### 1 3053943 #### [facility] [address] [address] URINALYSISOrdered By: Ethan Frost on 09-12-2023 Bilirubin [...] AM) Normal Negative [facility] UA Auto SS [place].plasma/Lithiu m.RBC (Bld) [Mass ratio] 0-3 /HPF Normal 0-3/HPF [facility] UA Auto SS Nitrite Ql (U) Negative (09/12/23 4:53 AM) Normal Negative [facility] UA Auto SS pH (U) 7.0 *NA* (09/12/23 4:53 AM) Invalid Interpretation Code 5.0 - 9.0 [facility] UA Auto SS Protein (U) [Mass/Vol] Negative (09/12/23 4:53 AM) Normal Negative [facility] UA Auto SS Specific gravity (U) [Rel density] <=1.005 *NA* (09/12/23 4:53 AM) Invalid Interpretation Code 1.005 - 1.030 [facility] UA Auto SS UA Spec Desc Clean Catch (09/12/23 4:53 AM) Normal [facility] UA Auto SS Urobilinogen Qn (U) 0.3382427 {Judith'U}/dL Normal 0.0 - 1.0 EU/dL [facility] UA Auto SS WBC Auto Ql (U) Trace *ABN* (09/12/23 4:53 AM) Invalid Interpretation Code Negative [facility] UA Auto SS WBC LM.HPF (Urine sed) [#/Area] 0-5 /HPF Normal 0-5/HPF [facility] UA Auto SS XR Chest Single Viewon [...] mGy = na DAP = na Normal [facility] eGFRon 09-12-2023 eGFR 66 mL/min/1.73 m2 Normal >=59 [facility] Comment on above: Order Comment: Order Added by Discern Expert. Performed By: #### 2 671350, 16498731, 2604991, 6667358, 7577011, 2206489 #### [facility] [address] [place] [address] CNPNon 09-07-2023 CNPN Normal [facility] CNPNon 09-01-2023 CNPN Normal [facility] CBC panel Auto (Bld)on 08-31 Erythrocyte distribution width (RBC) [Ratio] 12.9 % Normal 11.5-15.0 [facility] Comment on above: Order Comment: Speci men Type: BLOOD SPECIMENOrdering Facility: [facility] Address: [address] [place] [address] Performed By: #### 5 8410-2 ####[facility] LABCLIA [id number] [place] [address] [place] Hematocrit (Bld) [Volume fraction] 36.1 % Normal 36.0-46.0 [facility] Comment on above: Order Comment: Speci men Type: BLOOD SPECIMENOrdering Facility: [facility] Address: [address] [place] [address] Performed By: #### 5 8410-2 ####[facility] LABCLIA [id number] [place] [address] [place] Hemoglobin (Bld) [Mass/Vol] 11.9 g/dL Normal 11.5-15.5 [facility] Comment on above: Order Comment: Speci men Type: BLOOD SPECIMENOrdering Facility: [facility] Address: [address] [place] [address] Performed By: #### 5 8410-2 ####[facility] LABCLIA [id number] [place] [address] [place] MCH (RBC) [Entitic mass] 29.5 pg Normal 26.0-34.0 [facility] Comment on above: Order Comment: Speci men Type: BLOOD SPECIMENOrdering Facility: [facility] Address: [address] [place] [address] Performed By: #### 5 8410-2 ####[facility] [id number] [place] [address] [place] MCHC (RBC) [Mass/Vol] 33.0 g/dL Normal 30.5-36.0 [facility] Comment on above: Order Comment: Speci men Type: BLOOD SPECIMENOrdering Facility: [facility] Address: [address] [place] [address] Performed By: #### 5 8410-2 ####[facility] [id number] [place] [address] [place] MCV (RBC) [Entitic vol] 89.4 fL Normal 80.0-100.0 [facility] Comment on above: Order Comment: Speci men Type: BLOOD SPECIMENOrdering Facility: [facility] Address: [address] [place] [address] Performed By: #### 5 8410-2 ####[facility] [id number] [place] [address] [place] Nucleated RBC (Bld) [#/Vol] 10*3/uL Normal <0.01 [facility] Comment on above: Order Comment: Speci men Type: BLOOD SPECIMENOrdering Facility: [facility] Address: [address] [place] [address] Performed By: #### 5 8410-2 ####[facility] [id number] [place] [address] [place] Platelet mean volume (Bld) [Entitic vol] 10.2 fL Normal 9.0-12.7 [facility] Comment on above: Order Comment: Speci men Type: BLOOD SPECIMENOrdering Facility: [facility] Address: [address] [place] [address] Performed By: #### 5 8410-2 ####[facility] LABCLIA [id number] [address] [address] [place] Platelets (Bld) [#/Vol] 175 10*3/uL Normal 150-400 [facility] Comment on above: Order Comment: Speci men Type: BLOOD SPECIMENOrdering Facility: [facility] Address: [address] [place] [address] Performed By: #### 5 8410-2 ####[facility] LABIA [id number] [place] [address] [place] RBC (Bld) [#/Vol] 4.04 10*6/uL Normal 3.90-5.20 [facility] Comment on above: Order Comment: Speci men Type: BLOOD SPECIMENOrdering Facility: [facility] Address: [address] [place] [address] Performed By: #### 5 8410-2 ####[facility] LABIA [id number] [place] [address] [place] WBC (Bld) [#/Vol] 6.11 10*3/uL Normal 3.70-11.00 [facility] Comment on above: Order Comment: Speci men Type: BLOOD SPECIMENOrdering Facility: [facility] Address: [address] [place] [address] Performed By: #### 5 8410-2 ####[facility] LABIA [id number] [place] [id number] [place] CNDSon 08-31-2023 CNDS Normal [facility] Comprehensive metabolic 2000 panelon 08-31-2023 Albumin [Mass/Vol] 3.5 g/dL Low 3.9-4.9 [facility] Comment on above: Order Comment: Speci men Type: BLOOD SPECIMENOrdering Facility: [facility] Address: [address] [place] [address] Performed By: #### 1 9123-9, 43226-9 ####[facility] LABCL[facility] [id number] [place] [id number] [place] ALP [Catalytic activity/Vol] 52 U/L Normal 34-123 [facility] Comment on above: Order Comment: Speci men Type: BLOOD SPECIMENOrdering Facility: [facility] Address: [address] [place] [address] Performed By: #### 1 9123-9, ####[facility] LABCL[facility] [id number] [place] [address] [place] ALT [Catalytic activity/Vol] 24 U/L Normal 7-38 [facility] Comment on above: Order Comment: Speci men Type: BLOOD SPECIMENOrdering Facility: [facility] Address: [address] [place] [address] Performed By: #### 1 9123-9, ####[facility] LABCL[facility] [id number] [place] [address] [place] Anion gap [Moles/Vol] 9 mmol/L Normal 9-18 [facility] Comment on above: Order Comment: Speci men Type: BLOOD SPECIMENOrdering Facility: [facility] Address: [address] [place] [address] Performed By: #### 1 9123-9, ####[facility] LABCLIA [id number] [place] [address] [place] AST [Catalytic activity/Vol] 20 U/L Normal 13-35 [facility] Comment on above: Order Comment: Speci men Type: BLOOD SPECIMENOrdering Facility: [facility] Address: [address] [place] [address] Performed By: #### 1 9123-9, 99778-6 ####[facility] LABCLIA [id number] [place] [id number] [place] Bilirubin [Mass/Vol] 0.5 mg/dL Normal 0.2-1.3 [facility] Comment on above: Order Comment: Speci men Type: BLOOD SPECIMENOrdering Facility: [facility] Address: [address] [place] [address] Performed By: #### 1 9123-9, ####[facility] LABCLIA [id number] [address] [address] [place] Calcium [Mass/Vol] 9.2 mg/dL Normal 8.5-10.2 [facility] Comment on above: Order Comment: Speci men Type: BLOOD SPECIMENOrdering Facility: [facility] Address: [address] [place] [address] Performed By: #### 1 9123-9, ####[facility] LABCLIA [id number] [place] [address] [place] Chloride [Moles/Vol] 103 mmol/L Normal 97-105 [facility] Comment on above: Order Comment: Speci men Type: BLOOD SPECIMENOrdering Facility: [facility] Address: [address] [place] [address] Performed By: #### 1 239, ####[facility] LABCLIA [id number] [place] [address] [place] CO2 [Moles/Vol] 25 mmol/L Normal 22-30 [facility] Comment on above: Order Comment: Speci men Type: BLOOD SPECIMENOrdering Facility: [facility] Address: [address] [place] [address] Performed By: #### 1 23-9, ####[facility] LABCLIA [id number] [place] [address] [place] Creatinine [Mass/Vol] 0.90 mg/dL Normal 0.58-0.96 [facility] Comment on above: Order Comment: Speci men Type: BLOOD SPECIMENOrdering Facility: [facility] Address: [address] [place] [address] Performed By: #### 1 9123-9, 51801-0 ####[facility] LABCLIA [id number] [address] [place] Creatinine and Glomerular filtration rate.predicted panel (S/P/Bld) 67 mL/min/1.73m??? Normal >=60 [facility] Comment on above: Order Comment: Nichole becerra Type: BLOOD SPECIMENOrdering Facility: [facility] Address: [address] [place] [address] Result Comment: Shelley mated Glomerular Filtration Rate [...] actual GFR. Performed By: #### 1 9123-9, 92299-6 ####[facility] LABCL[facility] [id number] [place] [address] [place] Glucose [Mass/Vol] 85 mg/dL Normal 74-99 [facility] Comment on above: Order Comment: Nichole becerra Type: BLOOD SPECIMENOrdering Facility: [facility] Address: [address] [place] [address] Result Comment: The [place] [employer] (ADA) provides guidance for cutoff [...] Standards of Medical Care in Diabetes 2016, [place] [employer]. Diabetes Care. 2016.39(Suppl 1). Performed By: #### 1 9123-9, 69997-7 ####[facility] LABCLIA [id number] [address] [address] [place] Potassium [Moles/Vol] 4.3 mmol/L Normal 3.7-5.1 [facility] Comment on above: Order Comment: Speci men Type: BLOOD SPECIMENOrdering Facility: [facility] Address: [address] [place] [address] Performed By: #### 1 9123-9, ####[facility] LABCLIA [id number] [place] [address] [place] Protein [Mass/Vol] 5.9 g/dL Low 6.3-8.0 [facility] Comment on above: Order Comment: Speci men Type: BLOOD SPECIMENOrdering Facility: [facility] Address: [address] [place] [address] Performed By: #### 1 9123-9, ####[facility] LABIA [id number] [place] [address] [place] Sodium [Moles/Vol] 137 mmol/L Normal 136-144 [facility] Comment on above: Order Comment: Speci men Type: BLOOD SPECIMENOrdering Facility: [facility] Address: [address] [place] [address] Performed By: #### 1 9123-9, 26614-3 ####[facility] LABCLIA [id number] [place] [address] [place] Urea nitrogen [Mass/Vol] 16 mg/dL Normal 7-21 [facility] Comment on above: Order Comment: Speci men Type: BLOOD SPECIMENOrdering Facility: [facility] Address: [address] [place] [address] Performed By: #### 1 9123-9, 68136-0 ####[facility] LABCLIA [id number] [place] [id number] [place] Magnesium SerPl-mCncon 08-31 Magnesium [Mass/Vol] 2.2 mg/dL Normal 1.7-2.3 [facility] Comment on above: Order Comment: Speci men Type: BLOOD SPECIMENOrdering Facility: [facility] Address: [address] [place] [address] Performed By: #### 1 9123-9, 09692-3 ####[facility] LABCLIA [id number] [place] [address] [place] NUTRITIONon 08-31-2023 NUTRITION Normal [facility] PT EDon 08-31-2023 PT ED Normal [facility] PT ED Normal [facility] US FEMALE PELVIS TRANSABD LT Don 08-31-2023 US FEMALE PELVIS TRANSABD LTD Normal [facility] FEMALE PELVIS TRANSVAGon 08-31-2023 FEMALE PELVIS TRANSVAG Normal [facility] CBC panel Auto (Bld)on 08-30 Erythrocyte distribution width (RBC) [Ratio] 13.1 % Normal 11.5-15.0 [facility] Comment on above: Order Comment: Speci men Type: BLOOD SPECIMENOrdering Facility: [facility] Address: [address] [place] [address] Performed By: #### 5 8410-2 ####[facility] LABCLIA [id number] [place] [address] [place] Hematocrit (Bld) [Volume fraction] 38.9 % Normal 36.0-46.0 [facility] Comment on above: Order Comment: Speci men Type: BLOOD SPECIMENOrdering Facility: [facility] Address: [address] [place] [address] Performed By: #### 5 8410-2 ####[facility] LABCLIA [id number] [place] [address] [place] Hemoglobin (Bld) [Mass/Vol] 12.6 g/dL Normal 11.5-15.5 [facility] Comment on above: Order Comment: Speci men Type: BLOOD SPECIMENOrdering Facility: [facility] Address: [address] [place] [address] Performed By: #### 5 8410-2 ####[facility] LABIA [id number] [place] [address] [place] MCH (RBC) [Entitic mass] 29.9 pg Normal 26.0-34.0 [facility] Comment on above: Order Comment: Speci men Type: BLOOD SPECIMENOrdering Facility: [facility] Address: [address] [place] [address] Performed By: #### 5 8410-2 ####[facility] LABIA [id number] [place] [address] [place] MCHC (RBC) [Mass/Vol] 32.4 g/dL Normal 30.5-36.0 [facility] Comment on above: Order Comment: Speci men Type: BLOOD SPECIMENOrdering Facility: [facility] Address: [address] [place] [address] Performed By: #### 5 8410-2 ####[facility] LABIA [id number] [place] [address] [place] MCV (RBC) [Entitic vol] 92.2 fL Normal 80.0-100.0 [facility] Comment on above: Order Comment: Speci men Type: BLOOD SPECIMENOrdering Facility: [facility] Address: [address] [place] [address] Performed By: #### 5 8410-2 ####[facility] LABCLIA [id number] [place] [address] [place] Nucleated RBC (Bld) [#/Vol] 10*3/uL Normal <0.01 [facility] Comment on above: Order Comment: Speci men Type: BLOOD SPECIMENOrdering Facility: [facility] Address: [address] [place] [address] Performed By: #### 5 8410-2 ####[facility] LABCLIA [id number] [place] [address] [place] Platelet mean volume (Bld) [Entitic vol] 10.4 fL Normal 9.0-12.7 [facility] Comment on above: Order Comment: Speci men Type: BLOOD SPECIMENOrdering Facility: [facility] Address: [address] [place] [address] Performed By: #### 5 8410-2 ####[facility] LABCLIA [id number] [place] [address] [place] Platelets (Bld) [#/Vol] 185 10*3/uL Normal 150-400 [facility] Comment on above: Order Comment: Speci men Type: BLOOD SPECIMENOrdering Facility: [facility] Address: [address] [place] [address] Performed By: #### 5 8410-2 ####[facility] LABCLIA [id number] [place] [address] [place] RBC (Bld) [#/Vol] 4.22 10*6/uL Normal 3.90-5.20 [facility] Comment on above: Order Comment: Speci men Type: BLOOD SPECIMENOrdering Facility: [facility] Address: [address] [place] [address] Performed By: #### 5 8410-2 ####[facility] LABIA [id number] [place] [address] [place] WBC (Bld) [#/Vol] 6.51 10*3/uL Normal 3.70-11.00 [facility] Comment on above: Order Comment: Speci men Type: BLOOD SPECIMENOrdering Facility: [facility] Address: [address] [place] [address] Performed By: #### 5 8410-2 ####[facility] LABCLIA [id number] [place] [address] [place] CNCOon 08-30-2023 CNCO Letter Text Normal [facility] CONSULT PROGon 08-30-2023 CONSULT PROG Normal [facility] Comprehensive metabolic 2000 panelon 08-30-2023 Albumin [Mass/Vol] 3.9 g/dL Normal 3.9-4.9 [facility] Comment on above: Order Comment: Speci men Type: BLOOD SPECIMENOrdering Facility: [facility] Address: [address] [place] [address] Performed By: #### 1 9123-9, 11596-6 ####[facility] LABCLIA [id number] [place] [address] [place] ALP [Catalytic activity/Vol] 65 U/L Normal 34-123 [facility] Comment on above: Order Comment: Speci men Type: BLOOD SPECIMENOrdering Facility: [facility] Address: [address] [place] [address] Performed By: #### 1 9123-9, 24978-6 ####[facility] LABCLIA [id number] [place] [address] [place] ALT [Catalytic activity/Vol] 28 U/L Normal 7-38 [facility] Comment on above: Order Comment: Speci men Type: BLOOD SPECIMENOrdering Facility: [facility] Address: [address] [place] [address] Performed By: #### 1 9123-9, 34838-5 ####[facility] LABCLIA [id number] [place] [address] [place] Anion gap [Moles/Vol] 9 mmol/L Normal 9-18 [facility] Comment on above: Order Comment: Speci men Type: BLOOD SPECIMENOrdering Facility: [facility] Address: [address] [place] [address] Performed By: #### 1 9123-9, 23600-4 ####[facility] LABCLIA [id number] [place] [id number] [place] AST [Catalytic activity/Vol] 24 U/L Normal 13-35 [facility] Comment on above: Order Comment: Speci men Type: BLOOD SPECIMENOrdering Facility: [facility] Address: [address] [place] [address] Performed By: #### 1 9123-9, ####[facility] LABCLIA [id number] [address] [address] [place] Bilirubin [Mass/Vol] 0.5 mg/dL Normal 0.2-1.3 [facility] Comment on above: Order Comment: Speci men Type: BLOOD SPECIMENOrdering Facility: [facility] Address: [address] [place] [address] Performed By: #### 1 9123-9, ####[facility] LABCLIA [id number] [place] [address] [place] Calcium [Mass/Vol] 9.3 mg/dL Normal 8.5-10.2 [facility] Comment on above: Order Comment: Speci men Type: BLOOD SPECIMENOrdering Facility: [facility] Address: [address] [place] [address] Performed By: #### 1 9123-9, ####[facility] LABCLIA [id number] [place] [address] [place] Chloride [Moles/Vol] 103 mmol/L Normal 97-105 [facility] Comment on above: Order Comment: Speci men Type: BLOOD SPECIMENOrdering Facility: [facility] Address: [address] [place] [address] Performed By: #### 1 9123-9, ####[facility] LABCLIA [id number] [place] [address] [place] CO2 [Moles/Vol] 25 mmol/L Normal 22-30 [facility] Comment on above: Order Comment: Speci men Type: BLOOD SPECIMENOrdering Facility: [facility] Address: [address] [place] [address] Performed By: #### 1 9123-9, ####[facility] LABCLIA [id number] [place] [address] [place] Creatinine [Mass/Vol] 1.11 mg/dL High 0.58-0.96 [facility] Comment on above: Order Comment: Speci men Type: BLOOD SPECIMENOrdering Facility: [facility] Address: [address] [place] [address] Performed By: #### 1 9123-9, ####[facility] LABIA [id number] [place] [address] [place] Creatinine and Glomerular filtration rate.predicted panel (S/P/Bld) 52 mL/min/1.73m??? Low >=60 [facility] Comment on above: Order Comment: [facility] Type: BLOOD SPECIMENOrdering Facility: [facility] Address: [address] [place] [address] Result Comment: Shelley mated Glomerular Filtration Rate [...] actual GFR. Performed By: #### 1 9123-9, ####[facility] LABIA [id number] [place] [address] [place] Glucose [Mass/Vol] 149 mg/dL High 74-99 [facility] Comment on above: Order Comment: Speci men Type: BLOOD SPECIMENOrdering Facility: [facility] Address: [address] [place] [address] Result Comment: The [place] [employer] (ADA) provides guidance for cutoff [...] Standards of Medical Care in Diabetes 2016, [place] [employer]. Diabetes Care. 2016.39(Suppl 1). Performed By: #### 1 9123-9, ####[facility] LABCLIA [id number] [place] [address] [place] Potassium [Moles/Vol] 5.0 mmol/L Normal 3.7-5.1 [facility] Comment on above: Order Comment: Speci men Type: BLOOD SPECIMENOrdering Facility: [facility] Address: [address] [place] [address] Performed By: #### 1 9123-9, ####[facility] LABCLIA [id number] [place] [address] [place] Protein [Mass/Vol] 6.3 g/dL Normal 6.3-8.0 [facility] Comment on above: Order Comment: Césari mariam Type: BLOOD SPECIMENOrdering Facility: [facility] Address: [address] [place] [address] Performed By: #### 1 9123-9, ####[facility] LABCLIA [id number] [place] [address] [place] Sodium [Moles/Vol] 137 mmol/L Normal 136-144 [facility] Comment on above: Order Comment: Speci men Type: BLOOD SPECIMENOrdering Facility: [facility] Address: [address] [place] [address] Performed By: #### 1 9123-9, ####[facility] LABCLIA [id number] [place] [id number] [place] Urea nitrogen [Mass/Vol] 19 mg/dL Normal 7-21 [facility] Comment on above: Order Comment: Speci men Type: BLOOD SPECIMENOrdering Facility: [facility] Address: [address] [place] [address] Performed By: #### 1 9123-9, 17561-4 ####[facility] LABCLIA [id number] [place] [address] [place] Magnesium SerPl-mCncon 08-30 Magnesium [Mass/Vol] 2.2 mg/dL Normal 1.7-2.3 [facility] Comment on above: Order Comment: Speci men Type: BLOOD SPECIMENOrdering Facility: [facility] Address: [address] [place] [address] Performed By: #### 1 9123-9, 07288-5 ####[facility] LABCLIA [id number] [place] [address] [place] NURSING PROGon 08-30-2023 NURSING PROG Normal [facility] NUTRITIONon 08-30-2023 NUTRITION Normal [facility] CBC panel Auto (Bld)on 08-29 Erythrocyte distribution width (RBC) [Ratio] 13.1 % Normal 11.5-15.0 [facility] Comment on above: Order Comment: Speci men Type: BLOOD SPECIMENOrdering Facility: [facility] Address: [address] [place] [address] Performed By: #### 5 8410-2 ####[facility] LABCLIA [id number] [address] [place] Hematocrit (Bld) [Volume fraction] 39.4 % Normal 36.0-46.0 [facility] Comment on above: Order Comment: Speci men Type: BLOOD SPECIMENOrdering Facility: [facility] Address: [address] [place] [address] Performed By: #### 5 8410-2 ####[facility] LABCLIA [id number] [place] [address] [place] Hemoglobin (Bld) [Mass/Vol] 13.1 g/dL Normal 11.5-15.5 [facility] Comment on above: Order Comment: Speci men Type: BLOOD SPECIMENOrdering Facility: [facility] Address: [address] [place] [address] Performed By: #### 5 8410-2 ####[facility] LABCLIA [id number] [place] [address] [place] MCH (RBC) [Entitic mass] 30.0 pg Normal 26.0-34.0 [facility] Comment on above: Order Comment: Speci men Type: BLOOD SPECIMENOrdering Facility: [facility] Address: [address] [place] [address] Performed By: #### 5 8410-2 ####[facility] LABIA [id number] [place] [address] [place] MCHC (RBC) [Mass/Vol] 33.2 g/dL Normal 30.5-36.0 [facility] Comment on above: Order Comment: Speci men Type: BLOOD SPECIMENOrdering Facility: [facility] Address: [address] [place] [address] Performed By: #### 5 8410-2 ####[facility] LABIA [id number] [place] [address] [place] MCV (RBC) [Entitic vol] 90.4 fL Normal 80.0-100.0 [facility] Comment on above: Order Comment: Speci men Type: BLOOD SPECIMENOrdering Facility: [facility] Address: [address] [place] [address] Performed By: #### 5 8410-2 ####[facility] LABIA [id number] [place] [address] [place] Nucleated RBC (Bld) [#/Vol] 10*3/uL Normal <0.01 [facility] Comment on above: Order Comment: Speci men Type: BLOOD SPECIMENOrdering Facility: [facility] Address: [address] [place] [address] Performed By: #### 5 8410-2 ####[facility] LABIA [id number] [place] [address] [place] Platelet mean volume (Bld) [Entitic vol] 10.5 fL Normal 9.0-12.7 [facility] Comment on above: Order Comment: Speci men Type: BLOOD SPECIMENOrdering Facility: [facility] Address: [address] [place] [address] Performed By: #### 5 8410-2 ####[facility] LABIA [id number] [place] [address] [place] Platelets (Bld) [#/Vol] 192 10*3/uL Normal 150-400 [facility] Comment on above: Order Comment: Speci men Type: BLOOD SPECIMENOrdering Facility: [facility] Address: [address] [place] [address] Performed By: #### 5 8410-2 ####[facility] LABIA [id number] [place] [address] [place] RBC (Bld) [#/Vol] 4.36 10*6/uL Normal 3.90-5.20 [facility] Comment on above: Order Comment: Speci men Type: BLOOD SPECIMENOrdering Facility: [facility] Address: [address] [place] [address] Performed By: #### 5 8410-2 ####[facility] LABIA [id number] [place] [address] [place] WBC (Bld) [#/Vol] 8.00 10*3/uL Normal 3.70-11.00 [facility] Comment on above: Order Comment: Speci men Type: BLOOD SPECIMENOrdering Facility: [facility] [facility] Address: [address] [place] [address] Performed By: #### 5 8410-2 ####[facility] LABCLIA [id number] [address] [address] [place] CT FLANK WO IVCONon 08-29-[address] FLANK WO IVCON Invalid Interpretation Code [facility] Comprehensive metabolic 2000 panelon 08-29-2023 Albumin [Mass/Vol] 3.9 g/dL Normal 3.9-4.9 [facility] Comment on above: Order Comment: Speci men Type: BLOOD SPECIMENOrdering Facility: [facility] Address: [address] [place] [address] Performed By: #### 2 432-8, ####[facility] LABCLIA [id number] [place] [address] [place] ALP [Catalytic activity/Vol] 58 U/L Normal 34-123 [facility] Comment on above: Order Comment: Speci men Type: BLOOD SPECIMENOrdering Facility: [facility] Address: [address] [place] [address] Performed By: #### 2 4322-8, ####[facility] LABCLIA [id number] [place] [address] [place] ALT [Catalytic activity/Vol] 33 U/L Normal 7-38 [facility] Comment on above: Order Comment: Speci men Type: BLOOD SPECIMENOrdering Facility: [facility] Address: [address] [place] [address] Performed By: #### 2 4328, ####[facility] LABCLIA [id number] [place] [id number] [place] Anion gap [Moles/Vol] 10 mmol/L Normal 9-18 [facility] Comment on above: Order Comment: Speci men Type: BLOOD SPECIMENOrdering Facility: [facility] Address: [address] [place] [address] Performed By: #### 2 4323-8, ####[facility] LABCLIA [id number] [place] [address] [place] AST [Catalytic activity/Vol] 25 U/L Normal 13-35 [facility] Comment on above: Order Comment: Speci men Type: BLOOD SPECIMENOrdering Facility: [facility] Address: [address] [place] [address] Performed By: #### 2 4323-8, ####[facility] LABCLIA [id number] [place] [address] [place] Bilirubin [Mass/Vol] 0.7 mg/dL Normal 0.2-1.3 [facility] Comment on above: Order Comment: Speci men Type: BLOOD SPECIMENOrdering Facility: [facility] Address: [address] [place] [address] Performed By: #### 2 4323-8, ####[facility] LABCLIA [id number] [place] [address] [place] Calcium [Mass/Vol] 9.0 mg/dL Normal 8.5-10.2 [facility] Comment on above: Order Comment: Speci men Type: BLOOD SPECIMENOrdering Facility: [facility] Address: [address] [place] [address] Performed By: #### 2 4323-8, ####[facility] LABCLIA [id number] [place] [address] [place] Chloride [Moles/Vol] 101 mmol/L Normal 97-105 [facility] Comment on above: Order Comment: Speci men Type: BLOOD SPECIMENOrdering Facility: [facility] Address: [address] [place] [address] Performed By: #### 2 4323-8, ####[facility] LABCLIA [id number] [place] [id number] [place] CO2 [Moles/Vol] 25 mmol/L Normal 22-30 [facility] Comment on above: Order Comment: Speci men Type: BLOOD SPECIMENOrdering Facility: [facility] Address: [address] [place] [address] Performed By: #### 2 4323-8, ####[facility] LABCLIA [id number] [place] [address] [place] Creatinine [Mass/Vol] 0.87 mg/dL Normal 0.58-0.96 [facility] Comment on above: Order Comment: Speci men Type: BLOOD SPECIMENOrdering Facility: [facility] Address: [address] [place] [address] Performed By: #### 2 4323-8, ####[facility] LABIA [id number] [place] [address] [place] Creatinine and Glomerular filtration rate.predicted panel (S/P/Bld) 70 mL/min/1.73m??? Normal >=60 [facility] Comment on above: Order Comment: Speci men Type: BLOOD SPECIMENOrdering Facility: [facility] Address: [address] [place] [address] Result Comment: Shelley mated Glomerular Filtration Rate [...] actual GFR. Performed By: #### 2 4323-8, ####[facility] LABIA [id number] [place] [address] [place] Glucose [Mass/Vol] 85 mg/dL Normal 74-99 [facility] Comment on above: Order Comment: Speci men Type: BLOOD SPECIMENOrdering Facility: [facility] Address: [address] [place] [address] Result Comment: The [place] Diabetes [employer] (ADA) provides guidance for cutoff [...] Standards of Medical Care in Diabetes 2016, [place] [employer]. Diabetes Care. 2016.39(Suppl 1). Performed By: #### 2 4323-03, ####[facility] LABCLIA [id number] [place] [address] [place] Potassium [Moles/Vol] 4.7 mmol/L Normal 3.7-5.1 [facility] Comment on above: Order Comment: Speci men Type: BLOOD SPECIMENOrdering Facility: [facility] Address: [address] [place] [address] Performed By: #### 2 4323-03, ####[facility] LABIA [id number] [place] [address] [place] Protein [Mass/Vol] 6.3 g/dL Normal 6.3-8.0 [facility] Comment on above: Order Comment: Speci men Type: BLOOD SPECIMENOrdering Facility: [facility] Address: [address] [place] [address] Performed By: #### 2 4323-03, ####[facility] LABIA [id number] [place] [id number] [place] Sodium [Moles/Vol] 136 mmol/L Normal 136-144 [facility] Comment on above: Order Comment: Speci men Type: BLOOD SPECIMENOrdering Facility: [facility] Address: [address] [place] [address] Performed By: #### 2 4323-03, ####[facility] LABCLIA [id number] [place] [id number] [place] Urea nitrogen [Mass/Vol] 15 mg/dL Normal 7-21 [facility] Comment on above: Order Comment: Speci men Type: BLOOD SPECIMENOrdering Facility: [facility] Address: [address] [place] [address] Performed By: #### 2 4323-8, 29364-4 ####[facility] LABCLIA [id number] [place] [id number] [place] DIGOXIN/LANOXINon 08-29-2023 Digoxin [Mass/Vol] 1.0 ng/mL Normal 0.6-1.2 [facility] Comment on above: Order Comment: Speci men Type: BLOOD SPECIMENOrdering Facility: [facility] Address: [address] [place] [address] Result Comment: Prov ided therapeutic concentrations are based on the 2008 ESC Guidelines for the Diagnosis and Treatment of Acute and Chronic Heart Failure.Reference ranges and high/low indicator flags are provided as general guidelines only. The treating physician must determine appropriate target levels/dosing based on the specific clinical situation. Performed By: #### D IG ####[facility] LABCLIA [id number] [place] [id number] [place] Magnesium SerPl-mCncon 08-29 Magnesium [Mass/Vol] 2.2 mg/dL Normal 1.7-2.3 [facility] Comment on above: Order Comment: Speci men Type: BLOOD SPECIMENOrdering Facility: [facility] Address: [address] [place] [address] Performed By: #### 2 4323-8, ####[facility] LABIA [id number] [place] [id number] [place] NUTRITIONon 08-29-2023 NUTRITION Normal [facility] THYROID PEROXIDASE ANTIBODY BLOODon 08-29-2023 TPO Ab Qn [IU]/mL Normal <5.6 [facility] Comment on above: Order Comment: Speci men Type: BLOOD SPECIMENOrdering Facility: [facility] Address: [address] [place] [address] Result Comment: Thyr oid Peroxidase Antibody test is used as an aid in diagnosis of autoimmune thyroid disease. Clinical correlation is required. Performed By: #### M ICRO ####[facility] LABCLIA [id number] [place] [address] [place] ANES POSTPROC EVALon 024 ANES POSTPROC EVAL Normal [facility] ANES PRE-OPon 08-28-2023 ANES PRE-OP Normal [facility] CASE MANAGEMon 08-28-2023 CASE MANAGEM Normal [facility] CBC panel Auto (Bld)on 08-28 Erythrocyte distribution width (RBC) [Ratio] 13.1 % Normal 11.5-15.0 [facility] Comment on above: Order Comment: Speci men Type: BLOOD SPECIMENOrdering Facility: [facility] Address: [address] [place] [address] Performed By: #### 5 8410-2 ####[facility] LABCLIA [id number] [place] [address] [place] Hematocrit (Bld) [Volume fraction] 37.8 % Normal 36.0-46.0 [facility] Comment on above: Order Comment: Speci men Type: BLOOD SPECIMENOrdering Facility: [facility] Address: [address] [place] [address] Performed By: #### 5 8410-2 ####[facility] LABCLIA [id number] [place] [id number] [place] Hemoglobin (Bld) [Mass/Vol] 12.3 g/dL Normal 11.5-15.5 [facility] Comment on above: Order Comment: Speci men Type: BLOOD SPECIMENOrdering Facility: [facility] Address: [address] [place] [address] Performed By: #### 5 8410-2 ####[facility] LABIA [id number] [place] [address] [place] MCH (RBC) [Entitic mass] 29.5 pg Normal 26.0-34.0 [facility] Comment on above: Order Comment: Speci men Type: BLOOD SPECIMENOrdering Facility: [facility] Address: [address] [place] [address] Performed By: #### 5 8410-2 ####[facility] LABIA [id number] [place] [address] [place] MCHC (RBC) [Mass/Vol] 32.5 g/dL Normal 30.5-36.0 [facility] Comment on above: Order Comment: Speci men Type: BLOOD SPECIMENOrdering Facility: [facility] Address: [address] [place] [address] Performed By: #### 5 8410-2 ####[facility] [id number] [place] [address] [place] MCV (RBC) [Entitic vol] 90.6 fL Normal 80.0-100.0 [facility] Comment on above: Order Comment: Speci men Type: BLOOD SPECIMENOrdering Facility: [facility] Address: [address] [place] [address] Performed By: #### 5 8410-2 ####[facility] [id number] [place] [address] [place] Nucleated RBC (Bld) [#/Vol] 10*3/uL Normal <0.01 [facility] Comment on above: Order Comment: Speci men Type: BLOOD SPECIMENOrdering Facility: [facility] Address: [address] [place] [address] Performed By: #### 5 8410-2 ####[facility] LABIA [id number] [place] [address] [place] Platelet mean volume (Bld) [Entitic vol] 10.4 fL Normal 9.0-12.7 [facility] Comment on above: Order Comment: Speci men Type: BLOOD SPECIMENOrdering Facility: [facility] Address: [address] [place] [address] Performed By: #### 5 8410-2 ####[facility] LABCLIA [id number] [place] [address] [place] Platelets (Bld) [#/Vol] 180 10*3/uL Normal 150-400 [facility] Comment on above: Order Comment: Speci men Type: BLOOD SPECIMENOrdering Facility: [facility] Address: [address] [place] [address] Performed By: #### 5 8410-2 ####[facility] LABCLIA [id number] [place] [address] [place] RBC (Bld) [#/Vol] 4.17 10*6/uL Normal 3.90-5.20 [facility] Comment on above: Order Comment: Speci men Type: BLOOD SPECIMENOrdering Facility: [facility] Address: [address] [place] [address] Performed By: #### 5 8410-2 ####[facility] LABIA [id number] [place] [address] [place] WBC (Bld) [#/Vol] 6.22 10*3/uL Normal 3.70-11.00 [facility] Comment on above: Order Comment: Speci men Type: BLOOD SPECIMENOrdering Facility: [facility] Address: [address] [place] [address] Performed By: #### 5 8410-2 ####[facility] LABIA [id number] [place] [address] [place] CNOVon 08-28-2023 CNOV Normal [facility] CONSULTon 08-28-2023 CONSULT Normal [facility] Comprehensive metabolic 2000 panelon 08-28-2023 Albumin [Mass/Vol] 3.5 g/dL Low 3.9-4.9 [facility] Comment on above: Order Comment: Speci men Type: BLOOD SPECIMENOrdering Facility: [facility] Address: [address] [place] [address] Performed By: #### 2 4323-8, 7 ####[facility] LABCLIA [id number] [place] [address] [place] ALP [Catalytic activity/Vol] 52 U/L Normal 34-123 [facility] Comment on above: Order Comment: Speci men Type: BLOOD SPECIMENOrdering Facility: [facility] Address: [address] [place] [address] Performed By: #### 2 4323-8, 7 ####[facility] LABCLIA [id number] [place] [address] [place] ALT [Catalytic activity/Vol] 31 U/L Normal 7-38 [facility] Comment on above: Order Comment: Speci men Type: BLOOD SPECIMENOrdering Facility: [facility] Address: [address] [place] [address] Performed By: #### 2 4323-8, 7 ####[facility] LABCLIA [id number] [place] [address] [place] Anion gap [Moles/Vol] 10 mmol/L Normal 9-18 [facility] Comment on above: Order Comment: Speci men Type: BLOOD SPECIMENOrdering Facility: [facility] Address: [address] [place] [address] Performed By: #### 2 4323-8, 7 ####[facility] LABCLIA [id number] [place] [address] [place] AST [Catalytic activity/Vol] 26 U/L Normal 13-35 [facility] Comment on above: Order Comment: Speci men Type: BLOOD SPECIMENOrdering Facility: [facility] Address: [address] [place] [address] Performed By: #### 2 4323-8, 7 ####[facility] LABCLIA [id number] [place] [address] [place] Bilirubin [Mass/Vol] 0.5 mg/dL Normal 0.2-1.3 [facility] Comment on above: Order Comment: Speci men Type: BLOOD SPECIMENOrdering Facility: [facility] Address: [address] [place] [address] Performed By: #### 2 4323-8, 7 ####[facility] LABCLIA [id number] [place] [address] [place] Calcium [Mass/Vol] 9.5 mg/dL Normal 8.5-10.2 [facility] Comment on above: Order Comment: Speci men Type: BLOOD SPECIMENOrdering Facility: [facility] Address: [address] [place] [address] Performed By: #### 2 432-8, 7 ####[facility] LABCLIA [id number] [place] [address] [place] Chloride [Moles/Vol] 106 mmol/L High 97-105 [facility] Comment on above: Order Comment: Speci men Type: BLOOD SPECIMENOrdering Facility: [facility] Address: [address] [place] [address] Performed By: #### 2 4323-8, 7 ####[facility] LABCLIA [id number] [place] [address] [place] CO2 [Moles/Vol] 24 mmol/L Normal 22-30 [facility] Comment on above: Order Comment: Speci men Type: BLOOD SPECIMENOrdering Facility: [facility] Address: [address] [place] [id number] Performed By: #### 2 4323-8, 3023-7 ####[facility] LABCLIA [id number] [place] Creatinine [Mass/Vol] 0.75 mg/dL Normal 0.58-0.96 [facility] Comment on above: Order Comment: Nichole becerra Type: BLOOD SPECIMENOrdering Facility: [facility] Address: [address] [place] [address] Performed By: #### 2 4323-8, 3024-7 ####[facility] LABIA [id number] [address] OF [facility] Creatinine and Glomerular filtration rate.predicted panel (S/P/Bld) 83 mL/min/1.73m??? Normal >=60 [facility] Comment on above: Order Comment: Nichole becerra Type: BLOOD SPECIMENOrdering Facility: [facility] Address: [address] [place] [address] Result Comment: Shelley mated Glomerular Filtration Rate [...] GFR. Performed By: #### 2 4323-8, 3024-7 ####[facility] LABIA [id number] [place] [address] [place] Glucose [Mass/Vol] 88 mg/dL Normal 74-99 [facility] Comment on above: Order Comment: Nichole becerra Type: BLOOD SPECIMENOrdering Facility: [facility] Address: [address] [place] [address] Result Comment: The [place] [employer] (ADA) provides guidance for cutoff [...] Standards of Medical Care in Diabetes 2016, [place] [employer]. Diabetes Care. 2016.39(Suppl 1). Performed By: #### 2 432-8, 3024-02 ####[facility] LABCLIA [id number] [place] [address] [place] Potassium [Moles/Vol] 4.6 mmol/L Normal 3.7-5.1 [facility] Comment on above: Order Comment: Speci men Type: BLOOD SPECIMENOrdering Facility: [facility] Address: [address] [place] [address] Performed By: #### 2 4328, 3024-02 ####[facility] LABCLIA [id number] [place] [address] [place] Protein [Mass/Vol] 5.9 g/dL Low 6.3-8.0 [facility] Comment on above: Order Comment: Speci men Type: BLOOD SPECIMENOrdering Facility: [facility] Address: [address] [place] [address] Performed By: #### 2 4328, 3024-02 ####[facility] LABCLIA [id number] [place] [address] [place] Sodium [Moles/Vol] 140 mmol/L Normal 136-144 [facility] Comment on above: Order Comment: Speci men Type: BLOOD SPECIMENOrdering Facility: [facility] Address: [address] [place] [address] Performed By: #### 2 4323-8, 3024-02 ####[facility] LABCLIA [id number] [place] [id number] [place] Urea nitrogen [Mass/Vol] 13 mg/dL Normal 7-21 [facility] Comment on above: Order Comment: Speci men Type: BLOOD SPECIMENOrdering Facility: [facility] Address: [address] [place] [address] Performed By: #### 2 4323-8, 3024-7 ####[facility] LABCLIA [id number] [place] [id number] [place] [id number] 08-28-2023 ECG01 Normal [facility] ECHO TRANSESOPHAGEALon 08-28 ECHO TRANSESOPHAGEAL Normal [facility] NURSING PROGon 08-28-2023 NURSING PROG Normal [facility] PT EDon 08-28-2023 PT ED Normal [facility] PT ED Normal [facility] T4 Free SerPl-mCncon 024 Free T4 [Mass/Vol] 1.1 ng/dL Normal 0.9-1.7 [facility] Comment on above: Order Comment: Speci men Type: BLOOD SPECIMENOrdering Facility: [facility] Address: [address] [place] [address] Performed By: #### 2 4323-8, 3027 ####[facility] LABIA [id number] [place] [address] [place] CBC panel Auto (Bld)on 08-27 Erythrocyte distribution width (RBC) [Ratio] 12.8 % Normal 11.5-15.0 [facility] Comment on above: Order Comment: Speci men Type: BLOOD SPECIMENOrdering Facility: [facility] Address: [address] [place] [address] Performed By: #### 5 8410-2 ####[facility] LABIA [id number] [place] [address] [place] Hematocrit (Bld) [Volume fraction] 38.9 % Normal 36.0-46.0 [facility] Comment on above: Order Comment: Speci men Type: BLOOD SPECIMENOrdering Facility: [facility] Address: [address] [place] [address] Performed By: #### 5 8410-2 ####[facility] LABCLIA [id number] [place] [address] [place] Hemoglobin (Bld) [Mass/Vol] 12.7 g/dL Normal 11.5-15.5 [facility] Comment on above: Order Comment: Speci men Type: BLOOD SPECIMENOrdering Facility: [facility] Address: [address] [place] [address] Performed By: #### 5 8410-2 ####[facility] LABCLIA [id number] [place] [address] [place] MCH (RBC) [Entitic mass] 29.4 pg Normal 26.0-34.0 [facility] Comment on above: Order Comment: Speci men Type: BLOOD SPECIMENOrdering Facility: [facility] Address: [address] [place] [address] Performed By: #### 5 8410-2 ####[facility] LABCLIA [id number] [place] [address] [place] MCHC (RBC) [Mass/Vol] 32.6 g/dL Normal 30.5-36.0 [facility] Comment on above: Order Comment: Speci men Type: BLOOD SPECIMENOrdering Facility: [facility] Address: [address] [place] [address] Performed By: #### 5 8410-2 ####[facility] LABIA [id number] [place] [address] [place] MCV (RBC) [Entitic vol] 90.0 fL Normal 80.0-100.0 [facility] Comment on above: Order Comment: Speci men Type: BLOOD SPECIMENOrdering Facility: [facility] Address: [address] [place] [address] Performed By: #### 5 8410-2 ####[facility] LABCLIA [id number] [place] [address] [place] Nucleated RBC (Bld) [#/Vol] 10*3/uL Normal <0.01 [facility] Comment on above: Order Comment: Speci men Type: BLOOD SPECIMENOrdering Facility: [facility] Address: [address] [place] [address] Performed By: #### 5 8410-2 ####[facility] LABCLIA [id number] [place] [address] [place] Platelet mean volume (Bld) [Entitic vol] 10.4 fL Normal 9.0-12.7 [facility] Comment on above: Order Comment: Speci men Type: BLOOD SPECIMENOrdering Facility: [facility] Address: [address] [place] [address] Performed By: #### 5 8410-2 ####[facility] LABIA [id number] [place] [address] [place] Platelets (Bld) [#/Vol] 143 10*3/uL Low 150-400 [facility] Comment on above: Order Comment: Speci men Type: BLOOD SPECIMENOrdering Facility: [facility] Address: [address] [place] [address] Performed By: #### 5 8410-2 ####[facility] LABIA [id number] [place] [address] [place] RBC (Bld) [#/Vol] 4.32 10*6/uL Normal 3.90-5.20 [facility] Comment on above: Order Comment: Speci men Type: BLOOD SPECIMENOrdering Facility: [facility] Address: [address] [place] [address] Performed By: #### 5 8410-2 ####[facility] LABCLIA [id number] [place] [address] [place] WBC (Bld) [#/Vol] 5.61 10*3/uL Normal 3.70-11.00 [facility] Comment on above: Order Comment: Speci men Type: BLOOD SPECIMENOrdering Facility: [facility] Address: [address] [place] [address] Performed By: #### 5 8410-2 ####[facility] LABCLIA [id number] [place] [address] [place] Comprehensive metabolic 2000 panelon 08-27-2023 Albumin [Mass/Vol] 3.6 g/dL Low 3.9-4.9 [facility] Comment on above: Order Comment: Speci men Type: BLOOD SPECIMENOrdering Facility: [facility] Address: [address] [place] [address] Performed By: #### 2 4323-8, 6-3 ####[facility] LABCLIA [id number] [place] [address] [place] ALP [Catalytic activity/Vol] 59 U/L Normal 34-123 [facility] [facility] Comment on above: Order Comment: Speci men Type: BLOOD SPECIMENOrdering Facility: [facility] Address: [address] [place] [address] Performed By: #### 2 4323-8, 6-3 ####[facility] LABCLIA [id number] [place] [address] [place] ALT [Catalytic activity/Vol] 29 U/L Normal 7-38 [facility] Comment on above: Order Comment: Speci men Type: BLOOD SPECIMENOrdering Facility: [facility] Address: [address] [place] [address] Performed By: #### 2 4323-8, 6-3 ####[facility] LABCLIA [id number] [place] [id number] [place] Anion gap [Moles/Vol] 8 mmol/L Low 9-18 [facility] Comment on above: Order Comment: Speci men Type: BLOOD SPECIMENOrdering Facility: [facility] Address: [address] [place] [address] Performed By: #### 2 4323-8, 6-3 ####[facility] LABCLIA [id number] [place] [address] [place] AST [Catalytic activity/Vol] 27 U/L Normal 13-35 [facility] Comment on above: Order Comment: Speci men Type: BLOOD SPECIMENOrdering Facility: [facility] Address: [address] [place] [address] Performed By: #### 2 4323-8, 3016-3 ####[facility] LABCLIA [id number] [place] [address] [place] Bilirubin [Mass/Vol] 0.5 mg/dL Normal 0.2-1.3 [facility] Comment on above: Order Comment: Speci men Type: BLOOD SPECIMENOrdering Facility: [facility] Address: [address] [place] [address] Performed By: #### 2 4323-8, 3015-3 ####[facility] LABCLIA [id number] [place] [address] [place] Calcium [Mass/Vol] 9.1 mg/dL Normal 8.5-10.2 [facility] Comment on above: Order Comment: Speci men Type: BLOOD SPECIMENOrdering Facility: [facility] Address: [address] [place] [address] Performed By: #### 2 4323-8, 6-3 ####[facility] LABCLIA [id number] [place] [address] [place] Chloride [Moles/Vol] 105 mmol/L Normal 97-105 [facility] Comment on above: Order Comment: Speci men Type: BLOOD SPECIMENOrdering Facility: [facility] Address: [address] [place] [address] Performed By: #### 2 4323-8, 6-3 ####[facility] LABCLIA [id number] [place] [address] [place] CO2 [Moles/Vol] 27 mmol/L Normal 22-30 [facility] Comment on above: Order Comment: Speci men Type: BLOOD SPECIMENOrdering Facility: [facility] Address: [address] [place] [address] Performed By: #### 2 4323-8, 6-3 ####[facility] LABIA [id number] [place] [address] [place] Creatinine [Mass/Vol] 0.72 mg/dL Normal 0.58-0.96 [facility] Comment on above: Order Comment: Speci men Type: BLOOD SPECIMENOrdering Facility: [facility] Address: [address] [place] [address] Performed By: #### 2 4323-8, 3015-3 ####[facility] LABIA [id number] [place] [address] [place] Creatinine and Glomerular filtration rate.predicted panel (S/P/Bld) 87 mL/min/1.73m??? Normal >=60 [facility] Comment on above: Order Comment: Speci men Type: BLOOD SPECIMENOrdering Facility: [facility] Address: [address] [place] [address] Result Comment: Shelley mated Glomerular Filtration Rate [...] GFR. Performed By: #### 2 4323-8, 3015-3 ####[facility] LABIA [id number] [place] [id number] [place] Glucose [Mass/Vol] 92 mg/dL Normal 74-99 [facility] Comment on above: Order Comment: Speci men Type: BLOOD SPECIMENOrdering Facility: [facility] Address: [address] [place] [address] Result Comment: The [place] [employer] (ADA) provides guidance for cutoff [...] Standards of Medical Care in Diabetes 2016, [place] [employer]. Diabetes Care. 2016.39(Suppl 1). Performed By: #### 2 4323-8, 3015-3 ####[facility] LABCLIA [id number] [place] [address] [place] Potassium [Moles/Vol] 4.7 mmol/L Normal 3.7-5.1 [facility] Comment on above: Order Comment: Speci men Type: BLOOD SPECIMENOrdering Facility: [facility] Address: [address] [place] [address] Performed By: #### 2 4328, 3 ####[facility] LABCLIA [id number] [place] [address] [place] Protein [Mass/Vol] 5.8 g/dL Low 6.3-8.0 [facility] Comment on above: Order Comment: Speci men Type: BLOOD SPECIMENOrdering Facility: [facility] Address: [address] [place] [address] Performed By: #### 2 4328, 3 ####[facility] LABCLIA [id number] [place] [address] [place] Sodium [Moles/Vol] 140 mmol/L Normal 136-144 [facility] Comment on above: Order Comment: Speci men Type: BLOOD SPECIMENOrdering Facility: [facility] Address: [address] [place] [address] Performed By: #### 2 4328, 3015-3 ####[facility] LABCLIA [id number] [place] [address] [place] Urea nitrogen [Mass/Vol] 15 mg/dL Normal 7-21 [facility] Comment on above: Order Comment: Speci men Type: BLOOD SPECIMENOrdering Facility: [facility] Address: [address] [place] [address] Performed By: #### 2 4323-8, 3016-3 ####[facility] LABIA [id number] [place] [address] [place] TSH SerPl-aCncon 08-27-2023 TSH Qn 9.850 m[IU]/L High 0.270-4.200 [facility] Comment on above: Order Comment: Speci men Type: BLOOD SPECIMENOrdering Facility: [facility] Address: [address] [place] [address] Performed By: #### 2 4323-8, 3016-3 ####[facility] LABIA [id number] [place] [address] [place] Bacteria Ur Culton Bacteria identified Cx Nom (U) Abnormal [facility] Comment on above: Performed By: #### 6 30-4 ####[facility] LABIA [id number] [place] [address] [place] CBC panel Auto (Bld)on 08-26 Erythrocyte distribution width (RBC) [Ratio] 13.1 % Normal 11.5-15.0 [facility] Comment on above: Order Comment: Speci men Type: BLOOD SPECIMENOrdering Facility: [facility] Address: [address] [place] [address] Performed By: #### 5 8410-2 ####[facility] LABIA [id number] [place] [address] [place] Hematocrit (Bld) [Volume fraction] 38.5 % Normal 36.0-46.0 [facility] Comment on above: Order Comment: Speci men Type: BLOOD SPECIMENOrdering Facility: [facility] Address: [address] [place] [address] Performed By: #### 5 8410-2 ####[facility] LABCLIA [id number] [place] [address] [place] Hemoglobin (Bld) [Mass/Vol] 12.8 g/dL Normal 11.5-15.5 [facility] Comment on above: Order Comment: Speci men Type: BLOOD SPECIMENOrdering Facility: [facility] Address: [address] [place] [address] Performed By: #### 5 8410-2 ####[facility] LABCLIA [id number] [place] [address] [place] MCH (RBC) [Entitic mass] 30.0 pg Normal 26.0-34.0 [facility] Comment on above: Order Comment: Speci men Type: BLOOD SPECIMENOrdering Facility: [facility] Address: [address] [place] [address] Performed By: #### 5 8410-2 ####[facility] LABCLIA [id number] [place] [address] [place] MCHC (RBC) [Mass/Vol] 33.2 g/dL Normal 30.5-36.0 [facility] Comment on above: Order Comment: Speci men Type: BLOOD SPECIMENOrdering Facility: [facility] Address: [address] [place] [address] Performed By: #### 5 8410-2 ####[facility] LABCLIA [id number] [place] [address] [place] MCV (RBC) [Entitic vol] 90.4 fL Normal 80.0-100.0 [facility] Comment on above: Order Comment: Speci men Type: BLOOD SPECIMENOrdering Facility: [facility] Address: [address] [place] [address] Performed By: #### 5 8410-2 ####[facility] LABCLIA [id number] [place] [address] [place] Nucleated RBC (Bld) [#/Vol] 10*3/uL Normal <0.01 [facility] Comment on above: Order Comment: Speci men Type: BLOOD SPECIMENOrdering Facility: [facility] Address: [address] [place] [address] Performed By: #### 5 8410-2 ####[facility] LABCLIA [id number] [place] [address] [place] Platelet mean volume (Bld) [Entitic vol] 10.6 fL Normal 9.0-12.7 [facility] Comment on above: Order Comment: Speci men Type: BLOOD SPECIMENOrdering Facility: [facility] Address: [address] [place] [address] Performed By: #### 5 8410-2 ####[facility] LABCLIA [id number] [place] [address] [place] Platelets (Bld) [#/Vol] 168 10*3/uL Normal 150-400 [facility] Comment on above: Order Comment: Speci men Type: BLOOD SPECIMENOrdering Facility: [facility] Address: [address] [place] [address] Performed By: #### 5 8410-2 ####[facility] LABCLIA [id number] [place] [address] [place] RBC (Bld) [#/Vol] 4.26 10*6/uL Normal 3.90-5.20 [facility] Comment on above: Order Comment: Speci men Type: BLOOD SPECIMENOrdering Facility: [facility] Address: [address] [place] [address] Performed By: #### 5 8410-2 ####[facility] LABCLIA [id number] [place] [address] [place] WBC (Bld) [#/Vol] 7.27 10*3/uL Normal 3.70-11.00 [facility] Comment on above: Order Comment: Speci men Type: BLOOD SPECIMENOrdering Facility: [facility] Address: [address] [place] [address] Performed By: #### 5 8410-2 ####[facility] LABCLIA [id number] [place] [address] [place] CONSULTon 08-26-2023 CONSULT Normal [place] metabolic 2000 panelon 08-26-2023 Albumin [Mass/Vol] 3.5 g/dL Low 3.9-4.9 [facility] Comment on above: Order Comment: Speci men Type: BLOOD SPECIMENOrdering Facility: [facility] Address: [address] [place] [address] Performed By: #### 2 4323-8 ####[facility] LABCLIA [id number] [place] [address] [place] ALP [Catalytic activity/Vol] 60 U/L Normal 34-123 [facility] Comment on above: Order Comment: Speci men Type: BLOOD SPECIMENOrdering Facility: [facility] Address: [address] [place] [address] Performed By: #### 2 4323-8 ####[facility] LABCLIA [id number] [place] [address] [place] ALT [Catalytic activity/Vol] 25 U/L Normal 7-38 [facility] Comment on above: Order Comment: Speci men Type: BLOOD SPECIMENOrdering Facility: [facility] Address: [address] [place] [address] Performed By: #### 2 4323-8 ####[facility] LABCLIA [id number] [place] [address] [place] Anion gap [Moles/Vol] 10 mmol/L Normal 9-18 [facility] Comment on above: Order Comment: Speci men Type: BLOOD SPECIMENOrdering Facility: [facility] Address: [address] [place] [address] Performed By: #### 2 4323-8 ####[facility] LABCLIA [id number] [place] [address] [place] AST [Catalytic activity/Vol] 22 U/L Normal 13-35 [facility] Comment on above: Order Comment: Speci men Type: BLOOD SPECIMENOrdering Facility: [facility] Address: [address] [place] [address] Performed By: #### 2 4323-8 ####[facility] LABCLIA [id number] [place] [address] [place] Bilirubin [Mass/Vol] 0.4 mg/dL Normal 0.2-1.3 [facility] Comment on above: Order Comment: Speci men Type: BLOOD SPECIMENOrdering Facility: [facility] Address: [address] [place] [address] Performed By: #### 2 4323-8 ####[facility] LABCLIA [id number] [place] [address] [place] Calcium [Mass/Vol] 8.9 mg/dL Normal 8.5-10.2 [facility] Comment on above: Order Comment: Speci men Type: BLOOD SPECIMENOrdering Facility: [facility] Address: [address] [place] [address] Performed By: #### 2 4323-8 ####[facility] LABCLIA [id number] [place] [address] [place] Chloride [Moles/Vol] 104 mmol/L Normal 97-105 [facility] Comment on above: Order Comment: Speci men Type: BLOOD SPECIMENOrdering Facility: [facility] Address: [address] [place] [address] Performed By: #### 2 4323-8 ####[facility] LABCLIA [id number] [place] [address] [place] CO2 [Moles/Vol] 26 mmol/L Normal 22-30 [facility] Comment on above: Order Comment: Speci men Type: BLOOD SPECIMENOrdering Facility: [facility] Address: [address] [place] [address] Performed By: #### 2 4323-8 ####[facility] LABCLIA [id number] [place] [address] [place] Creatinine [Mass/Vol] 0.84 mg/dL Normal 0.58-0.96 [facility] Comment on above: Order Comment: Speci men Type: BLOOD SPECIMENOrdering Facility: [facility] Address: [address] [place] [address] Performed By: #### 2 4323-8 ####[facility] LABCLIA [id number] [place] [address] [place] Creatinine and Glomerular filtration rate.predicted panel (S/P/Bld) 73 mL/min/1.73m??? Normal >=60 [facility] Comment on above: Order Comment: Speci men Type: BLOOD SPECIMENOrdering Facility: [facility] Address: [address] [place] [address] Result Comment: Shelley mated Glomerular Filtration Rate [...] actual GFR. Performed By: #### 2 4323-8 ####[facility] LABCLIA [id number] [place] [address] [place] Glucose [Mass/Vol] 93 mg/dL Normal 74-99 [facility] Comment on above: Order Comment: Speci men Type: BLOOD SPECIMENOrdering Facility: [facility] Address: [address] [place] [address] Result Comment: The [place] [employer] (ADA) provides guidance for cutoff [...] Standards of Medical Care in Diabetes 2016, [place] [employer]. Diabetes Care. 2016.39(Suppl 1). Performed By: #### 2 4323-8 ####[facility] LABCLIA [id number] [place] [address] [place] Potassium [Moles/Vol] 4.4 mmol/L Normal 3.7-5.1 [facility] Comment on above: Order Comment: Speci men Type: BLOOD SPECIMENOrdering Facility: [facility] Address: [address] [place] [address] Performed By: #### 2 432-8 ####[facility] LABCLIA [id number] [place] [address] [place] Protein [Mass/Vol] 5.7 g/dL Low 6.3-8.0 [facility] Comment on above: Order Comment: Speci men Type: BLOOD SPECIMENOrdering Facility: [facility] Address: [address] [place] [address] Performed By: #### 2 4323-8 ####[facility] LABCLIA [id number] [place] [address] [place] Sodium [Moles/Vol] 140 mmol/L Normal 136-144 [facility] Comment on above: Order Comment: Speci men Type: BLOOD SPECIMENOrdering Facility: [facility] Address: [address] [place] [address] Performed By: #### 2 4323-8 ####[facility] LABCLIA [id number] [place] [address] [place] Urea nitrogen [Mass/Vol] 19 mg/dL Normal 7-21 [facility] Comment on above: Order Comment: Speci men Type: BLOOD SPECIMENOrdering Facility: [facility] Address: [address] [place] [address] Performed By: #### 2 4323-8 ####[facility] LABCLIA [id number] [place] [address] [place] CASE MGT INIT ASSESon 2023 CASE MGT INIT ASSES Normal [facility] CBC panel Auto (Bld)on 08-25 Erythrocyte distribution width (RBC) [Ratio] 12.9 % Normal 11.5-15.0 [facility] Comment on above: Order Comment: Speci men Type: BLOOD SPECIMENOrdering Facility: [facility] Address: [address] [place] [address] Performed By: #### 5 8410-2 ####[facility] LABCLIA [id number] [place] [address] [place] Hematocrit (Bld) [Volume fraction] 37.8 % Normal 36.0-46.0 [facility] Comment on above: Order Comment: Speci men Type: BLOOD SPECIMENOrdering Facility: [facility] Address: [address] [place] [address] Performed By: #### 5 8410-2 ####[facility] LABCLIA [id number] [place] [address] [place] Hemoglobin (Bld) [Mass/Vol] 12.8 g/dL Normal 11.5-15.5 [facility] Comment on above: Order Comment: Speci men Type: BLOOD SPECIMENOrdering Facility: [facility] Address: [address] [place] [address] Performed By: #### 5 8410-2 ####[facility] LABCLIA [id number] [place] [address] [place] MCH (RBC) [Entitic mass] 29.9 pg Normal 26.0-34.0 [facility] Comment on above: Order Comment: Speci men Type: BLOOD SPECIMENOrdering Facility: [facility] Address: [address] [place] [address] Performed By: #### 5 8410-2 ####[facility] LABCLIA [id number] [place] [address] [place] MCHC (RBC) [Mass/Vol] 33.9 g/dL Normal 30.5-36.0 [facility] Comment on above: Order Comment: Speci men Type: BLOOD SPECIMENOrdering Facility: [facility] Address: [address] [place] [address] Performed By: #### 5 8410-2 ####[facility] LABIA [id number] [place] [address] [place] MCV (RBC) [Entitic vol] 88.3 fL Normal 80.0-100.0 [facility] Comment on above: Order Comment: Speci men Type: BLOOD SPECIMENOrdering Facility: [facility] Address: [address] [place] [address] Performed By: #### 5 8410-2 ####[facility] LABIA [id number] [place] [address] [place] Nucleated RBC (Bld) [#/Vol] 10*3/uL Normal <0.01 [facility] Comment on above: Order Comment: Speci men Type: BLOOD SPECIMENOrdering Facility: [facility] Address: [address] [place] [address] Performed By: #### 5 8410-2 ####[facility] LABIA [id number] [place] [address] [place] Platelet mean volume (Bld) [Entitic vol] 10.1 fL Normal 9.0-12.7 [facility] Comment on above: Order Comment: Speci men Type: BLOOD SPECIMENOrdering Facility: [facility] Address: [address] [place] [address] Performed By: #### 5 8410-2 ####[facility] LABCLIA [id number] [place] [address] [place] Platelets (Bld) [#/Vol] 173 10*3/uL Normal 150-400 [facility] Comment on above: Order Comment: Speci men Type: BLOOD SPECIMENOrdering Facility: [facility] Address: [address] [place] [address] Performed By: #### 5 8410-2 ####[facility] LABCLIA [id number] [place] [address] [place] RBC (Bld) [#/Vol] 4.28 10*6/uL Normal 3.90-5.20 [facility] Comment on above: Order Comment: Speci men Type: BLOOD SPECIMENOrdering Facility: [facility] Address: [address] [place] [address] Performed By: #### 5 8410-2 ####[facility] LABCLIA [id number] [place] [address] [place] WBC (Bld) [#/Vol] 6.38 10*3/uL Normal 3.70-11.00 [facility] Comment on above: Order Comment: Speci men Type: BLOOD SPECIMENOrdering Facility: [facility] Address: [address] [place] [address] Performed By: #### 5 8410-2 ####[facility] LABCLIA [id number] [place] [id number] [place] Comprehensive metabolic 2000 panelon 08-25-2023 Albumin [Mass/Vol] 3.4 g/dL Low 3.9-4.9 [facility] Comment on above: Order Comment: Speci men Type: BLOOD SPECIMENOrdering Facility: [facility] Address: [address] [place] [address] Performed By: #### 1 9123-9, ####[facility] LABCLIA [id number] [place] [address] [place] ALP [Catalytic activity/Vol] 48 U/L Normal 34-123 [facility] Comment on above: Order Comment: Speci men Type: BLOOD SPECIMENOrdering Facility: [facility] Address: [address] [place] [address] Performed By: #### 1 9123-9, 95626-9 ####[facility] LABCLIA [id number] [place] [address] [place] ALT [Catalytic activity/Vol] 26 U/L Normal 7-38 [facility] Comment on above: Order Comment: Speci men Type: BLOOD SPECIMENOrdering Facility: [facility] Address: [address] [place] [address] Performed By: #### 1 239, ####[facility] LABCLIA [id number] [place] [address] [place] Anion gap [Moles/Vol] 10 mmol/L Normal 9-18 [facility] Comment on above: Order Comment: Speci men Type: BLOOD SPECIMENOrdering Facility: [facility] Address: [address] [place] [address] Performed By: #### 1 23-9, ####[facility] LABCLIA [id number] [place] [address] [place] AST [Catalytic activity/Vol] 23 U/L Normal 13-35 [facility] Comment on above: Order Comment: Speci men Type: BLOOD SPECIMENOrdering Facility: [facility] Address: [address] [place] [address] Performed By: #### 1 9123-9, 67754-6 ####[facility] LABCLIA [id number] [place] [address] [place] Bilirubin [Mass/Vol] 0.9 mg/dL Normal 0.2-1.3 [facility] Comment on above: Order Comment: Speci men Type: BLOOD SPECIMENOrdering Facility: [facility] Address: [address] [place] [address] Performed By: #### 1 23-9, ####[facility] LABCLIA [id number] [place] [address] [place] Calcium [Mass/Vol] 9.0 mg/dL Normal 8.5-10.2 [facility] Comment on above: Order Comment: Speci men Type: BLOOD SPECIMENOrdering Facility: [facility] Address: [address] [place] [address] Performed By: #### 1 9123-9, ####[facility] LABCLIA [id number] [place] [address] [place] Chloride [Moles/Vol] 97 mmol/L Normal 97-105 [facility] Comment on above: Order Comment: Speci men Type: BLOOD SPECIMENOrdering Facility: [facility] Address: [address] [place] [address] Performed By: #### 1 23-9, ####[facility] LABCLIA [id number] [place] [address] [place] CO2 [Moles/Vol] 29 mmol/L Normal 22-30 [facility] Comment on above: Order Comment: Speci men Type: BLOOD SPECIMENOrdering Facility: [facility] Address: [address] [place] [address] Performed By: #### 1 9123-9, ####[facility] LABCLIA [id number] [place] [address] [place] Creatinine [Mass/Vol] 1.02 mg/dL High 0.58-0.96 [facility] Comment on above: Order Comment: Speci men Type: BLOOD SPECIMENOrdering Facility: [facility] Address: [address] [place] [address] Performed By: #### 1 9123-9, 00767-3 ####[facility] LABIA [id number] [place] [address] [place] Creatinine and Glomerular filtration rate.predicted panel (S/P/Bld) 57 mL/min/1.73m??? Low >=60 [facility] Comment on above: Order Comment: Nichole becerra Type: BLOOD SPECIMENOrdering Facility: [facility] Address: [address] [place] [address] Result Comment: Shelley mated Glomerular Filtration Rate [...] actual GFR. Performed By: #### 1 9123-9, 18391-1 ####[facility] LABIA [id number] [place] [address] [place] Glucose [Mass/Vol] 84 mg/dL Normal 74-99 [facility] Comment on above: Order Comment: Nichole becerra Type: BLOOD SPECIMENOrdering Facility: [facility] Address: [address] [place] [address] Result Comment: The [place] Diabetes [employer] (ADA) provides guidance for cutoff [...] Standards of Medical Care in Diabetes 2016, [place] [employer]. Diabetes Care. 2016.39(Suppl 1). Performed By: #### 1 23-9, ####[facility] LABCLIA [id number] [place] [address] [place] Potassium [Moles/Vol] 3.4 mmol/L Low 3.7-5.1 [facility] Comment on above: Order Comment: Speci men Type: BLOOD SPECIMENOrdering Facility: [facility] Address: [address] [place] [address] Performed By: #### 1 23-9, ####[facility] LABCLIA [id number] [place] [address] [place] Protein [Mass/Vol] 5.7 g/dL Low 6.3-8.0 [facility] Comment on above: Order Comment: Speci men Type: BLOOD SPECIMENOrdering Facility: [facility] Address: [address] [place] [address] Performed By: #### 1 239, ####[facility] LABCLIA [id number] [place] [address] [place] Sodium [Moles/Vol] 136 mmol/L Normal 136-144 [facility] Comment on above: Order Comment: Speci men Type: BLOOD SPECIMENOrdering Facility: [facility] Address: [address] [place] [address] Performed By: #### 1 239, ####[facility] LABCLIA [id number] [place] [address] [place] Urea nitrogen [Mass/Vol] 22 mg/dL High 7-21 [facility] Comment on above: Order Comment: Speci men Type: BLOOD SPECIMENOrdering Facility: [facility] Address: [address] [place] [address] Performed By: #### 1 9123-9, ####[facility] LABCLIA [id number] [place] [id number] [place] Magnesium SerPl-mCncon 08-25 Magnesium [Mass/Vol] 2.2 mg/dL Normal 1.7-2.3 [facility] Comment on above: Order Comment: Speci men Type: BLOOD SPECIMENOrdering Facility: [facility] Address: [address] [place] [address] Performed By: #### 1 9123-9, 20287-1 ####[facility] LABIA [id number] [place] [address] [place] POTASSIUM BLDon 08-25-2023 Potassium [Moles/Vol] 4.3 mmol/L Normal 3.7-5.1 [facility] Comment on above: Order Comment: Speci men Type: BLOOD SPECIMENOrdering Facility: [facility] Address: [address] [place] [address] Performed By: #### K 1 ####[facility] LABIA [id number] [place] [address] [place] US KIDNEY/BLADDERon 08-25-19 24 US KIDNEY/BLADDER Normal [facility] CBC W Auto Differential pane l (Bld)on 08-24-2023 Basophils (Bld) [#/Vol] 0.03 10*3/uL Normal <0.11 [facility] Comment on above: Order Comment: Speci men Type: BLOOD SPECIMENOrdering Facility: [facility] Address: [address] [place] [address] Performed By: #### 5 7021-8 ####[facility] LABIA [id number] [place] [address] [place] Basophils/100 WBC (Bld) 0.4 % Normal [facility] Comment on above: Order Comment: Speci men Type: BLOOD SPECIMENOrdering Facility: [facility] Address: [address] [place] [address] Performed By: #### 5 7021-8 ####[facility] LABIA [id number] [place] [address] [place] Differential cell count method Nom (Bld) Auto Normal [facility] Comment on above: Order Comment: Speci men Type: BLOOD SPECIMENOrdering Facility: [facility] Address: [address] [place] [address] Performed By: #### 5 7021-8 ####[facility] LABCLIA [id number] [place] [address] [place] Eosinophils (Bld) [#/Vol] 0.03 10*3/uL Normal <0.46 [facility] Comment on above: Order Comment: Speci men Type: BLOOD SPECIMENOrdering Facility: [facility] Address: [address] [place] [address] Performed By: #### 5 7021-8 ####[facility] LABCLIA [id number] [place] [address] [place] Eosinophils/100 WBC (Bld) 0.4 % Normal [facility] Comment on above: Order Comment: Speci men Type: BLOOD SPECIMENOrdering Facility: [facility] Address: [address] [place] [address] Performed By: #### 5 7021-8 ####[facility] LABCLIA [id number] [place] [address] [place] Erythrocyte distribution width (RBC) [Ratio] 12.7 % Normal 11.5-15.0 [facility] Comment on above: Order Comment: Speci men Type: BLOOD SPECIMENOrdering Facility: [facility] Address: [address] [place] [address] Performed By: #### 5 7021-8 ####[facility] LABCLIA [id number] [place] [address] [place] Hematocrit (Bld) [Volume fraction] 40.4 % Normal 36.0-46.0 [facility] Comment on above: Order Comment: Speci men Type: BLOOD SPECIMENOrdering Facility: [facility] Address: [address] [place] [address] Performed By: #### 5 7021-8 ####[facility] LABCLIA [id number] [place] [address] [place] Hemoglobin (Bld) [Mass/Vol] 13.2 g/dL Normal 11.5-15.5 [facility] Comment on above: Order Comment: Speci men Type: BLOOD SPECIMENOrdering Facility: [facility] Address: [address] [place] [address] Performed By: #### 5 7021-8 ####[facility] LABCLIA [id number] [place] [address] [place] Immature granulocytes (Bld) [#/Vol] 10*3/uL Normal <0.10 [facility] Comment on above: Order Comment: Speci men Type: BLOOD SPECIMENOrdering Facility: [facility] Address: [address] [place] [address] Performed By: #### 5 7021-8 ####[facility] LABCLIA [id number] [place] [address] [place] Immature granulocytes/100 WBC (Bld) 0.3 % Normal [facility] Comment on above: Order Comment: Speci men Type: BLOOD SPECIMENOrdering Facility: [facility] Address: [address] [place] [address] Performed By: #### 5 7021-8 ####[facility] LABCLIA [id number] [place] [address] [place] Lymphocytes (Bld) [#/Vol] 1.73 10*3/uL Normal 1.00-4.00 [facility] Comment on above: Order Comment: Speci men Type: BLOOD SPECIMENOrdering Facility: [facility] Address: [address] [place] [address] Performed By: #### 5 7021-8 ####[facility] LABCLIA [id number] [place] [address] [place] Lymphocytes/100 WBC (Bld) 23.4 % Normal [facility] Comment on above: Order Comment: Speci men Type: BLOOD SPECIMENOrdering Facility: [facility] Address: [address] [place] [address] Performed By: #### 5 7021-8 ####[facility] LABIA [id number] [place] [address] [place] MCH (RBC) [Entitic mass] 29.3 pg Normal 26.0-34.0 [facility] Comment on above: Order Comment: Speci men Type: BLOOD SPECIMENOrdering Facility: [facility] Address: [address] [place] [address] Performed By: #### 5 7021-8 ####[facility] LABCLIA [id number] [place] [address] [place] MCHC (RBC) [Mass/Vol] 32.7 g/dL Normal 30.5-36.0 [facility] Comment on above: Order Comment: Speci men Type: BLOOD SPECIMENOrdering Facility: [facility] Address: [address] [place] [address] Performed By: #### 5 7021-8 ####[facility] LABIA [id number] [place] [address] [place] MCV (RBC) [Entitic vol] 89.8 fL Normal 80.0-100.0 [facility] Comment on above: Order Comment: Speci men Type: BLOOD SPECIMENOrdering Facility: [facility] Address: [address] [place] [address] Performed By: #### 5 7021-8 ####[facility] LABIA [id number] [place] [address] [place] Monocytes (Bld) [#/Vol] 0.77 10*3/uL Normal <0.87 [facility] Comment on above: Order Comment: Speci men Type: BLOOD SPECIMENOrdering Facility: [facility] Address: [address] [place] [address] Performed By: #### 5 7021-8 ####[facility] LABCLIA [id number] [place] [address] [place] Monocytes/100 WBC (Bld) 10.4 % Normal [facility] Comment on above: Order Comment: Speci men Type: BLOOD SPECIMENOrdering Facility: [facility] Address: [address] [place] [address] Performed By: #### 5 7021-8 ####[facility] LABCLIA [id number] [place] [address] [place] Neutrophils (Bld) [#/Vol] 4.82 10*3/uL Normal 1.45-7.50 [facility] Comment on above: Order Comment: Speci men Type: BLOOD SPECIMENOrdering Facility: [facility] Address: [address] [place] [address] Performed By: #### 5 7021-8 ####[facility] LABCLIA [id number] [place] [address] [place] Neutrophils/100 WBC (Bld) 65.1 % Normal [facility] Comment on above: Order Comment: Speci men Type: BLOOD SPECIMENOrdering Facility: [facility] Address: [address] [place] [address] Performed By: #### 5 7021-8 ####[facility] LABCLIA [id number] [place] [address] [place] Nucleated RBC (Bld) [#/Vol] 10*3/uL Normal <0.01 [facility] Comment on above: Order Comment: Speci men Type: BLOOD SPECIMENOrdering Facility: [facility] Address: [address] [place] [address] Performed By: #### 5 7021-8 ####[facility] LABCLIA [id number] [place] [id number] [address] [place] Nucleated RBC/100 WBC (Bld) [Ratio] 0.0 /100 WBC Normal [facility] Comment on above: Order Comment: Speci men Type: BLOOD SPECIMENOrdering Facility: [facility] Address: [address] [place] [address] Performed By: #### 5 7021-8 ####[facility] LABCLIA [id number] [place] [address] [place] Platelet mean volume (Bld) [Entitic vol] 10.4 fL Normal 9.0-12.7 [facility] Comment on above: Order Comment: Speci men Type: BLOOD SPECIMENOrdering Facility: [facility] Address: [address] [place] [address] Performed By: #### 5 7021-8 ####[facility] LABCLIA [id number] [place] [address] [place] Platelets (Bld) [#/Vol] 201 10*3/uL Normal 150-400 [facility] Comment on above: Order Comment: Speci men Type: BLOOD SPECIMENOrdering Facility: [facility] Address: [address] [place] [address] Performed By: #### 5 7021-8 ####[facility] LABIA [id number] [place] [address] [place] RBC (Bld) [#/Vol] 4.50 10*6/uL Normal 3.90-5.20 [facility] Comment on above: Order Comment: Speci men Type: BLOOD SPECIMENOrdering Facility: [facility] Address: [address] [place] [address] Performed By: #### 5 7021-8 ####[facility] LABCLIA [id number] [place] [address] [place] WBC (Bld) [#/Vol] 7.40 10*3/uL Normal 3.70-11.00 [facility] Comment on above: Order Comment: Speci men Type: BLOOD SPECIMENOrdering Facility: [facility] Address: [address] [place] [address] Performed By: #### 5 7021-8 ####[facility] LABCLIA [id number] [place] [address] [place] CNPNon 08-24-2023 CNPN Normal [facility] Comprehensive metabolic 2000 panelon 08-24-2023 Albumin [Mass/Vol] 3.8 g/dL Low 3.9-4.9 [facility] Comment on above: Order Comment: Speci men Type: BLOOD SPECIMENOrdering Facility: [facility] Address: [address] [place] [address] Performed By: #### 2 4323-8 ####[facility] LABCLIA [id number] [place] [address] [place] ALP [Catalytic activity/Vol] 61 U/L Normal 34-123 [facility] Comment on above: Order Comment: Speci men Type: BLOOD SPECIMENOrdering Facility: [facility] Address: [address] [place] [address] Performed By: #### 2 4323-8 ####[facility] LABCLIA [id number] [place] [address] [place] ALT [Catalytic activity/Vol] 34 U/L Normal 7-38 [facility] Comment on above: Order Comment: Speci men Type: BLOOD SPECIMENOrdering Facility: [facility] Address: [address] [place] [address] Performed By: #### 2 4323-8 ####[facility] LABCLIA [id number] [place] [address] [place] Anion gap [Moles/Vol] 8 mmol/L Low 9-18 [facility] Comment on above: Order Comment: Speci men Type: BLOOD SPECIMENOrdering Facility: [facility] Address: [address] [place] [address] Performed By: #### 2 4323-8 ####[facility] LABCLIA [id number] [place] [address] [place] AST [Catalytic activity/Vol] 27 U/L Normal 13-35 [facility] Comment on above: Order Comment: Speci men Type: BLOOD SPECIMENOrdering Facility: [facility] Address: [address] [place] [address] Performed By: #### 2 4323-8 ####[facility] LABCLIA [id number] [place] [address] [place] Bilirubin [Mass/Vol] 0.7 mg/dL Normal 0.2-1.3 [facility] Comment on above: Order Comment: Speci men Type: BLOOD SPECIMENOrdering Facility: [facility] Address: [address] [place] [address] Performed By: #### 2 4323-8 ####[facility] LABCLIA [id number] [place] [address] [place] Calcium [Mass/Vol] 9.2 mg/dL Normal 8.5-10.2 [facility] Comment on above: Order Comment: Speci men Type: BLOOD SPECIMENOrdering Facility: [facility] Address: [address] [place] [address] Performed By: #### 2 4323-8 ####[facility] LABCLIA [id number] [place] [address] [place] Chloride [Moles/Vol] 97 mmol/L Normal 97-105 [facility] Comment on above: Order Comment: Speci men Type: BLOOD SPECIMENOrdering Facility: [facility] Address: [address] [place] [address] Performed By: #### 2 4323-8 ####[facility] LABCLIA [id number] [place] [address] [place] CO2 [Moles/Vol] 32 mmol/L High 22-30 [facility] Comment on above: Order Comment: Speci men Type: BLOOD SPECIMENOrdering Facility: [facility] Address: [address] [place] [address] Performed By: #### 2 4323-8 ####[facility] [id number] [place] [address] [place] Creatinine [Mass/Vol] 1.11 mg/dL High 0.58-0.96 [facility] Comment on above: Order Comment: Speci men Type: BLOOD SPECIMENOrdering Facility: [facility] Address: [address] [place] [address] Performed By: #### 2 4323-8 ####[facility] LAB[facility] [id number] [place] [address] [place] Creatinine and Glomerular filtration rate.predicted panel (S/P/Bld) 52 mL/min/1.73m??? Low >=60 [facility] Comment on above: Order Comment: Speci men Type: BLOOD SPECIMENOrdering Facility: [facility] Address: [address] [place] [address] Result Comment: Shelley mated Glomerular Filtration Rate [...] actual GFR. Performed By: #### 2 4323-8 ####[facility] LABIA [id number] [place] [address] [place] Glucose [Mass/Vol] 123 mg/dL High 74-99 [facility] Comment on above: Order Comment: Speci men Type: BLOOD SPECIMENOrdering Facility: [facility] Address: [address] [place] [address] Result Comment: The [place] [employer] (ADA) provides guidance for cutoff [...] Standards of Medical Care in Diabetes 2016, [place] [employer]. Diabetes Care. 2016.39(Suppl 1). Performed By: #### 2 4323-8 ####[facility] LABCLIA [id number] [place] [address] [place] Potassium [Moles/Vol] 3.7 mmol/L Normal 3.7-5.1 [facility] Comment on above: Order Comment: Speci men Type: BLOOD SPECIMENOrdering Facility: [facility] Address: [address] [place] [address] Performed By: #### 2 4323-8 ####[facility] LABCLIA [id number] [place] [address] [place] Protein [Mass/Vol] 6.1 g/dL Low 6.3-8.0 [facility] Comment on above: Order Comment: Césari men Type: BLOOD SPECIMENOrdering Facility: [facility] Address: [address] [place] [address] Performed By: #### 2 4323-8 ####[facility] LABCLIA [id number] [place] [address] [place] Sodium [Moles/Vol] 137 mmol/L Normal 136-144 [facility] Comment on above: Order Comment: Speci men Type: BLOOD SPECIMENOrdering Facility: [facility] Address: [address] [place] [address] Performed By: #### 2 4323-8 ####[facility] LABCLIA [id number] [place] [address] [place] Urea nitrogen [Mass/Vol] 21 mg/dL Normal 7-21 [facility] Comment on above: Order Comment: Speci men Type: BLOOD SPECIMENOrdering Facility: [facility] Address: [address] [place] [address] Performed By: #### 2 4323-8 ####[facility] LABCLIA [id number] [place] [address] [place] DIGOXIN/LANOXINon 08-24-2023 Digoxin [Mass/Vol] 1.1 ng/mL Normal 0.6-1.2 [facility] Comment on above: Order Comment: Speci men Type: BLOOD SPECIMENOrdering Facility: [facility] Address: [address] [place] [address] Result Comment: Prov ided therapeutic concentrations are based on the 2008 ESC Guidelines for the Diagnosis and Treatment of Acute and Chronic Heart Failure.Reference ranges and high/low indicator flags are provided as general guidelines only. The treating physician must determine appropriate target levels/dosing based on the specific clinical situation. Performed By: #### D IG ####[facility] LABCLIA [id number] [place] [address] [place] HISTORY PHYSICALon HISTORY PHYSICAL Normal [facility] URINALYSIS, DIPSTICK ONLYon 08-24-2023 Bilirubin Ql (U) Negative Normal Negative [facility] Comment on above: Order Comment: Speci men Type: URINE SPECIMENOrdering Facility: [facility] Address: [address] [place] [address] Performed By: #### U A ####[facility] LABCLIA [id number] [place] [address] [place] Clarity (Unsp spec) Cloudy Abnormal Clear [facility] Comment on above: Order Comment: Speci men Type: URINE SPECIMENOrdering Facility: [facility] Address: [address] [place] [address] Performed By: #### U A ####[facility] LABCLIA [id number] [place] [address] [place] Color (U) Yellow Normal Yellow [facility] Comment on above: Order Comment: Speci men Type: URINE SPECIMENOrdering Facility: [facility] Address: [address] [place] [address] Performed By: #### U A ####[facility] LABCLIA [id number] [place] [address] [place] Glucose Test strip (U) [Mass/Vol] Negative Normal Negative [facility] Comment on above: Order Comment: Speci men Type: URINE SPECIMENOrdering Facility: [facility] Address: [address] [place] [address] Performed By: #### U A ####[facility] LABCLIA [id number] [place] [address] [place] Hemoglobin Ql (U) Trace Abnormal Negative [facility] Comment on above: Order Comment: Speci men Type: URINE SPECIMENOrdering Facility: [facility] Address: [address] [place] [address] Performed By: #### U A ####[facility] LABCLIA [id number] [place] [address] [place] Ketones Ql (U) Trace Abnormal Negative [facility] Comment on above: Order Comment: Speci men Type: URINE SPECIMENOrdering Facility: [facility] Address: [address] [place] [address] Performed By: #### U A ####[facility] LABCLIA [id number] [place] [address] [place] Leukocyte esterase Test strip Ql (U) 1+ Abnormal Negative [facility] Comment on above: Order Comment: Speci men Type: URINE SPECIMENOrdering Facility: [facility] Address: [address] [place] [address] Performed By: #### U A ####[facility] LABCLIA [id number] [place] [address] [place] Nitrite Ql (U) Negative Normal Negative [facility] Comment on above: Order Comment: Speci men Type: URINE SPECIMENOrdering Facility: [facility] Address: [address] [place] [address] Performed By: #### U A ####[facility] LABCLIA [id number] [place] [address] [place] pH (U) 5.5 [pH] Normal <8.5 [facility] Comment on above: Order Comment: Speci men Type: URINE SPECIMENOrdering Facility: [facility] Address: [address] [place] [address] Performed By: #### U A ####[facility] LABIA [id number] [place] [address] [place] Protein (U) [Mass/Vol] 1+ Abnormal Negative [facility] Comment on above: Order Comment: Speci men Type: URINE SPECIMENOrdering Facility: [facility] Address: [address] [place] [address] Performed By: #### U A ####[facility] LABCLIA [id number] [place] [address] [place] Specific gravity (U) [Rel density] 1.021 Normal 1.005-1.030 [facility] Comment on above: Order Comment: Speci men Type: URINE SPECIMENOrdering Facility: [facility] Address: [address] [place] [address] Performed By: #### U A ####[facility] LABCLIA [id number] [place] [address] [place] Urobilinogen Ql (U) 1.0 EU/dL Normal 0.2-1.0 EU/dL [facility] Comment on above: Order Comment: Speci men Type: URINE SPECIMENOrdering Facility: [facility] Address: [address] [place] [address] Performed By: #### U A ####[facility] LABCLIA [id number] [place] [address] [place] CBC panel Auto (Bld)on 08-23 Erythrocyte distribution width (RBC) [Ratio] 12.9 % Normal 11.5-15.0 [facility] [facility] Comment on above: Order Comment: Speci men Type: BLOOD SPECIMENOrdering Facility: [facility] Address: [address] [place] [address] Performed By: #### 5 8410-2 ####[facility] LABCLIA [id number] [place] [address] [place] Hematocrit (Bld) [Volume fraction] 43.4 % Normal 36.0-46.0 [facility] Comment on above: Order Comment: Speci men Type: BLOOD SPECIMENOrdering Facility: [facility] Address: [address] [place] [address] Performed By: #### 5 8410-2 ####[facility] LABCLIA [id number] [address] [place] Hemoglobin (Bld) [Mass/Vol] 14.4 g/dL Normal 11.5-15.5 [facility] Comment on above: Order Comment: Speci men Type: BLOOD SPECIMENOrdering Facility: [facility] Address: [address] [place] [address] Performed By: #### 5 8410-2 ####[facility] LABCLIA [id number] [place] [address] [place] MCH (RBC) [Entitic mass] 30.3 pg Normal 26.0-34.0 [facility] Comment on above: Order Comment: Speci men Type: BLOOD SPECIMENOrdering Facility: [facility] Address: [address] [place] [address] Performed By: #### 5 8410-2 ####[facility] LABCLIA [id number] [place] [address] [place] MCHC (RBC) [Mass/Vol] 33.2 g/dL Normal 30.5-36.0 [facility] Comment on above: Order Comment: Speci men Type: BLOOD SPECIMENOrdering Facility: [facility] Address: [address] [place] [address] Performed By: #### 5 8410-2 ####[facility] LABCLIA [id number] [place] [address] [place] MCV (RBC) [Entitic vol] 91.4 fL Normal 80.0-100.0 [facility] Comment on above: Order Comment: Speci men Type: BLOOD SPECIMENOrdering Facility: [facility] Address: [address] [place] [address] Performed By: #### 5 8410-2 ####[facility] LABIA [id number] [place] [address] [place] Nucleated RBC (Bld) [#/Vol] 10*3/uL Normal <0.01 [facility] Comment on above: Order Comment: Speci men Type: BLOOD SPECIMENOrdering Facility: [facility] Address: [address] [place] [address] Performed By: #### 5 8410-2 ####[facility] LABIA [id number] [place] [address] [place] Platelet mean volume (Bld) [Entitic vol] 10.5 fL Normal 9.0-12.7 [facility] Comment on above: Order Comment: Speci men Type: BLOOD SPECIMENOrdering Facility: [facility] Address: [address] [place] [address] Performed By: #### 5 8410-2 ####[facility] LABIA [id number] [place] [address] [place] Platelets (Bld) [#/Vol] 215 10*3/uL Normal 150-400 [facility] Comment on above: Order Comment: Speci men Type: BLOOD SPECIMENOrdering Facility: [facility] Address: [address] [place] [address] Performed By: #### 5 8410-2 ####[facility] LABCLIA [id number] [place] [id number] [place] RBC (Bld) [#/Vol] 4.75 10*6/uL Normal 3.90-5.20 [facility] Comment on above: Order Comment: Speci men Type: BLOOD SPECIMENOrdering Facility: [facility] Address: [address] [place] [address] Performed By: #### 5 8410-2 ####[facility] LABCLIA [id number] [place] [address] [place] WBC (Bld) [#/Vol] 6.24 10*3/uL Normal 3.70-11.00 [facility] Comment on above: Order Comment: Speci men Type: BLOOD SPECIMENOrdering Facility: [facility] Address: [address] [place] [address] Performed By: #### 5 8410-2 ####[facility] LABCLIA [id number] [place] [id number] [place] CNOVon 08-23-2023 CNOV Normal [facility] CNOV Normal [facility] CREATININE BLDon 08-23-2023 Creatinine [Mass/Vol] 0.97 mg/dL High 0.58-0.96 [facility] Comment on above: Order Comment: Speci men Type: BLOOD SPECIMENOrdering Facility: [facility] Address: [address] [place] [address] Performed By: #### C RET1 ####[facility] LABIA [id number] [place] [address] [place] Creatinine and Glomerular filtration rate.predicted panel (S/P/Bld) 61 mL/min/1.73m??? Normal >=60 [facility] Comment on above: Order Comment: Speci men Type: BLOOD SPECIMENOrdering Facility: [facility] Address: [address] [place] [address] Result Comment: Shelley mated Glomerular Filtration Rate [...] actual GFR. Performed By: #### C RET1 ####[facility] LABCLIA [id number] [place] [address] [place] CTA CHEST (GATED) W IVCONon 08-23-2023 CTA CHEST (GATED) W IVCON Normal [facility] Comprehensive metabolic 2000 panelon 08-23-2023 Albumin [Mass/Vol] 4.4 g/dL Normal 3.9-4.9 [facility] Comment on above: Order Comment: Speci men Type: BLOOD SPECIMENOrdering Facility: [facility] Address: [address] [place] [address] Performed By: #### 2 4323-8, 81704-9 ####[facility] LABIA [id number] [place] [address] [place] ALP [Catalytic activity/Vol] 66 U/L Normal 34-123 [facility] Comment on above: Order Comment: Speci men Type: BLOOD SPECIMENOrdering Facility: [facility] Address: [address] [place] [address] Performed By: #### 2 4323-8, 85989-3 ####[facility] LABCLIA [id number] [place] [address] [place] ALT [Catalytic activity/Vol] 40 U/L High 7-38 [facility] Comment on above: Order Comment: Speci men Type: BLOOD SPECIMENOrdering Facility: [facility] Address: [address] [place] [address] Performed By: #### 2 4323-8, 93222-0 ####[facility] LABCLIA [id number] [place] [address] [place] Anion gap [Moles/Vol] 9 mmol/L Normal 9-18 [facility] Comment on above: Order Comment: Speci men Type: BLOOD SPECIMENOrdering Facility: [facility] Address: [address] [place] [address] Performed By: #### 2 4323-8, 36272-2 ####[facility] LABCLIA [id number] [place] [address] [place] AST [Catalytic activity/Vol] 31 U/L Normal 13-35 [facility] Comment on above: Order Comment: Speci men Type: BLOOD SPECIMENOrdering Facility: [facility] Address: [address] [place] [address] Performed By: #### 2 4323-8, 01092-3 ####[facility] LABCLIA [id number] [place] [address] [place] Bilirubin [Mass/Vol] 0.8 mg/dL Normal 0.2-1.3 [facility] Comment on above: Order Comment: Speci men Type: BLOOD SPECIMENOrdering Facility: [facility] Address: [address] [place] [address] Performed By: #### 2 4323-8, 17300-5 ####[facility] LABCLIA [id number] [place] [address] [place] Calcium [Mass/Vol] 9.8 mg/dL Normal 8.5-10.2 [facility] Comment on above: Order Comment: Speci men Type: BLOOD SPECIMENOrdering Facility: [facility] Address: [address] [place] [address] Performed By: #### 2 4323-8, 83425-0 ####[facility] LABCLIA [id number] [place] [address] [place] Chloride [Moles/Vol] 98 mmol/L Normal 97-105 [facility] Comment on above: Order Comment: Speci men Type: BLOOD SPECIMENOrdering Facility: [facility] Address: [address] [place] [address] Performed By: #### 2 4323-8, 93163-9 ####[facility] LABCLIA [id number] [place] [address] [place] CO2 [Moles/Vol] 32 mmol/L High 22-30 [facility] Comment on above: Order Comment: Speci men Type: BLOOD SPECIMENOrdering Facility: [facility] Address: [address] [place] [address] Performed By: #### 2 4323-8, 23261-3 ####[facility] LABCLIA [id number] [place] [address] [place] Creatinine [Mass/Vol] 0.98 mg/dL High 0.58-0.96 [facility] Comment on above: Order Comment: Speci men Type: BLOOD SPECIMENOrdering Facility: [facility] Address: [address] [place] [address] Performed By: #### 2 4323-8, 90680-6 ####[facility] LABCLIA [id number] [address] [place] Creatinine and Glomerular filtration rate.predicted panel (S/P/Bld) 60 mL/min/1.73m??? Normal >=60 [facility] Comment on above: Order Comment: Speci men Type: BLOOD SPECIMENOrdering Facility: [facility] Address: [address] [place] [address] Result Comment: Shelley mated Glomerular Filtration Rate [...] actual GFR. Performed By: #### 2 4323-8, 91988-9 ####[facility] LABCLIA [id number] [place] [address] [place] Glucose [Mass/Vol] 127 mg/dL High 74-99 [facility] Comment on above: Order Comment: Speci men Type: BLOOD SPECIMENOrdering Facility: [facility] Address: [address] [place] [address] Result Comment: The [place] [employer] (ADA) provides guidance for cutoff [...] Standards of Medical Care in Diabetes 2016, [place] [employer]. Diabetes Care. 2016.39(Suppl 1). Performed By: #### 2 4323-8, 29590-7 ####[facility] LABCLIA [id number] [place] [address] [place] Potassium [Moles/Vol] 4.1 mmol/L Normal 3.7-5.1 [facility] Comment on above: Order Comment: Speci men Type: BLOOD SPECIMENOrdering Facility: [facility] Address: [address] [place] [address] Performed By: #### 2 4323-8, 70942-9 ####[facility] LABCLIA [id number] [place] [address] [place] Protein [Mass/Vol] 6.8 g/dL Normal 6.3-8.0 [facility] Comment on above: Order Comment: Speci men Type: BLOOD SPECIMENOrdering Facility: [facility] Address: [address] [place] [address] Performed By: #### 2 4323-8, 59033-3 ####[facility] LABCLIA [id number] [place] [address] [place] Sodium [Moles/Vol] 139 mmol/L Normal 136-144 [facility] Comment on above: Order Comment: Speci men Type: BLOOD SPECIMENOrdering Facility: [facility] Address: [address] [place] [address] Performed By: #### 2 4323-8, 02620-7 ####[facility] LABIA [id number] [place] [address] [place] Urea nitrogen [Mass/Vol] 17 mg/dL Normal 7-21 [facility] Comment on above: Order Comment: Speci men Type: BLOOD SPECIMENOrdering Facility: [facility] Address: [address] [place] [address] Performed By: #### 2 4323-8, 08635-8 ####[facility] [id number] [place] [address] [place] FDT62kt 08-23-2023 ECG01 Normal [facility] NT-proBNP SerPl-mCncon 08-23 Natriuretic peptide.B prohormone N-Terminal [Mass/Vol] 3265 pg/mL High <450 [facility] Comment on above: Order Comment: Speci men Type: BLOOD SPECIMENOrdering Facility: [facility] Address: [address] [place] [address] Performed By: #### 2 4323-8, 09857-1 ####[facility] LABIA [id number] [place] [address] [place] RIGHT HEART CATH REPORTon RIGHT HEART CATH REPORT Normal [facility] US CAROTID ARTERIES DAWSON VAS LABon 08-23-2023 US CAROTID ARTERIES DAWSON VAS LAB Normal [facility] CNPNon 08-22-2023 CNPN Normal [facility] CNPNon 08-16-2023 CNPN Normal [facility] Outside Cardiovascularon Outside Cardiovascular [id number]# 1.00TIFF Normal [facility] Progress Note-Physicianon Progress Note-Physician [id number]#1 .00TIFF Normal [facility] Echocardiogram-Transesophage anamaria 07-28-2023 Echocardiogram-Transe sophageal [id number]# 1.00TIFF Normal [facility] CNPNon 07-24-2023 CNPN Normal [facility] Discharge Instructionson Discharge Instructions [id number]# 1.00TIFF Normal [facility] Formson 07-24-2023 Forms [id number]#1 .00TIFF Normal [facility] Consent for Treatmenton Consent for Treatment [id number]#1 .00TIFF Normal [facility] Inpatient Clinical Summaryon 07-21-2023 Inpatient Clinical Summary [place] [id number] Clinical Summary Person Information: Name: HARJIT ASENCIO I Age: 73 Years : 1950 Sex: Female PCP: Peggy Nazario MD Marital Status: Race: White Ethnicity: Non- or Language: Qatari Visit Id: Visit Reason: I51.9, I42.8 Speciality: Acuity: Enc Type: Ambulatory/Same Day Surgery Med Service: Surgery Arrival: 07/21/2023 06:33:24 Discharge: Dispo Type: Address: [address] [place] [address] [address] [facility] [id number] Provider Notes: Diagnosis: Problems Active Urethral stricture [...] Follow up: With: Address: When: Johan HENRIQUEZ [address] [place] [address] [phone] Business (1) Comments: -After your appointment with Type Location Start Finish State URO Office Visit [facility] WILL Silva 01/24/2024 2:30 PM 01/24/2024 2:45 PM Confirmed Patient Education Information: CV - Post-Transesophageal Echocardiogram (Custom) Normal [facility] Inpatient Patient Summaryon 07-21-2023 Inpatient Patient Summary [address] [address] Patient Discharge Instructions PERSON INFORMATION Name: HARJIT [...] Follow up: With: Address: When: Johan HENRIQUEZ [address] [place] [phone] Business (1) Comments: -After your appointment with CC In the event that this physician does not participate in your insurance network, please consult with your insurance company to find a nearby participating provider. Type Location Start Finish State URO Office Visit [facility] EU [place] 01/24/2024 2:30 PM 01/24/2024 2:45 PM Confirmed [...] Refills: 0. [facility] Comment: PATIENT EDUCATION INFORMATION Instructions: [place], [place] POST-TRANSESOPHAGEAL ECHOCARDIOGRAM AFTER THE PROCEDURE: Diet: ? May eat/drink and/or take normal daily medications after 10:45 Activity: ? You should have someone stay with you for the next (more content not included)... Normal [facility] Patient Education - Texton 1 09-21-2022 Patient Education - Text [place] POST-TRANSESOPHAGEAL ECHOCARDIOGRAM AFTER THE PROCEDURE: Diet: [...] Seek Medical Care if: ? Notify your dental assistant should you have any difficulty swallowing or coughing up blood. ? In the event you are unable to reach your dental assistant, please call [facility] at [phone] and the digital computer operator will assist you. [facility] Referrals Officeon 3 Referrals Office [id number]# 1.00TIFF [facility] Consent for Procedure/Surger yon 07-20-2023 Consent for Procedure/Surgery [id number] #1.00TIFF [facility] Consent for Treatmenton 0 Consent for Treatment [id number]#1 .00TIFF Normal [facility] Heart and Vascular Office/Cl inic Noteon 07-20-2023 [...] confirmed by markedly elevated V wave on [place]-Lois catheter wedge pressure tracing. 5. Normal left [...] patient wishes to go to the [facility] for mitral and tricuspid valve repair [...] Renal le (more content not included)... Normal [facility] Comment on above: Result Comment: Elec tronically Signed By: Johan HENRIQUEZ MD\.br\Date and Time Signed: 07/20/23 10:38 EST Physician Orderon 07-20-2023 Physician Order [id number] #1.00TIFF Lalitha Yen [facility] Ambulatory Visit Summaryon 1 09-19-2022 Ambulatory Visit [...] Micheline BROOKS MD Where: [facility] Shira Doty [facility] Patient Educationon 07-19-20 Patient Education Urology [...] including vitamins, herbs, eye drops, creams, and kwcg-cqi-ddvkgeo medicines. ? Whether you are or may [...] be (more content not included)... Normal [facility] Urology Office/Clinic Noteon 07-19-2023 Urology Office/Clinic Note Chief Complaint f/u for urinary retention HPI Staff Pt was last seen on 04/26/23. Pt was seen at [facility] on 07/07/23. Pt had Robles. placed at [...] of incomplete bladder emptying) Pt presented to [facility] ED 07/03/23 due to urinary retention. Robles [...] [facility] [address], [place] [address]- Additional Instructions: 6 mos Patient Education Urodynamic [...] Oral, BID (more content not included)... Normal [facility] Comment on above: Result Comment: Elec [...] mild cad The ekg nor echo showed MA and the Cardiology consult didn't mention it and his recommendations were reviewed and agreed with. Was the MA type II ruled out or should that be coded? Thank you Fiona HIM Coding From: Nahid SERRATO MD To: Natalya Ansari; Sent: 07/17/2023 12:28:48 EST Subject: RE: Coding Query Caller Name: HARJIT ASENCIO I; Caller Number: Debora Type 2 acute NSTEMI due to demand ischemia from A-FIB with RVR. (POA) Normal [facility] ED Note-Physicianon 07-15-20 ED Note-Physician Basic Information Time Seen: Tay Jeff 07/07/2023 09:00 Chief Complaint discharged yesterday from [facility], reports can't breathe w/exertion History of Present [...] of 40. Case is discussed with her dental assistant. She just underwent ischemic evaluation including catheterization [...] HENRIQUEZ In 3 days 07/10/2023 EST [address] [place] [phone] Business (1) Additional Instructions: Peggy Nazario In 3 days 07/10/2023 EST [address] [place] [address]- Business (1) Additional Instructions (more content not included)... [facility] Comment on above: Result Comment: Elec tronically Signed By: Noe Black PA-C\.br\Date and Time Signed: 07/07/23 15:56 EST\.br\Electronically Co-Signed By: Jeff Cross DO\.br\Date and Time Co-Signed: 07/15/23 06:59 EST Cardiovascular Reporton 06-16 Cardiovascular Report [id number]# 2.00TIFF [facility] Nursing Assessmenton 023 Nursing Assessment [id number]# 1.00TIFF [facility] Discharge Instructionson Discharge Instructions [id number]# 1.00TIFF [facility] Auto Diffon 11-24-2023 Basophils/100 WBC (Bld) 0.6 % Normal 0.0-2.0 [facility] Comment on above: Order Comment: Order Added by Discern Expert. Performed By: #### 2 449951, 70811973, 2202162, 3935015, 4365444, 6848761 #### [facility] [address] [place] [address] Basophils/Leukocytes Auto (Bld) [Pure # fraction] 0.0 E9/L Normal 0.0-0.2 [facility] Comment on above: Order Comment: Order Added by Discern Expert. Performed By: #### 2 608560, 97297543, 3153078, 2132506, 9372900, 2488118 #### [facility] [address] [place] [address] Eosinophils/100 WBC (Bld) 1.5 % Normal 0.0-8.0 [facility] Comment on above: Order Comment: Order Added by Discern Expert. Performed By: #### 2 580705, 79438071, 9959749, 7181440, 8510788, 6683865 #### [facility] [address] [place] [address] Eosinophils/Leukocyte s Auto (Bld) [Pure # fraction] 0.1 E9/L Normal 0.0-0.5 [facility] Comment on above: Order Comment: Order Added by Discern Expert. Performed By: #### 2 903006, 37637465, 3733493, 6419706, 6463781, 9258384 #### [facility] [address] [place] [address] Lymphocytes/100 WBC (Bld) 15.3 % Normal 14.0-50.0 [facility] Comment on above: Order Comment: Order Added by Discern Expert. Performed By: #### 2 449595, 40736200, 1967966, 3047084, 7774856, 6637234 #### [facility] [address] [place] [address] 09700 Lymphocytes/Leukocyte s Auto (Bld) [Pure # fraction] 1.2 E9/L Normal 1.0-4.0 [facility] Comment on above: Order Comment: Order Added by Discern Expert. Performed By: #### 2 774776, 19775325, 3117541, 5109178, 3021968, 8794291 #### [facility] [address] [place] [address] Monocytes/100 WBC (Bld) 6.4 % Normal 4.0-14.0 [facility] Comment on above: Order Comment: Order Added by Discern Expert. Performed By: #### 2 616382, 29448634, 4609070, 2131067, 1391877, 3905198 #### [facility] [address] [place] [address] Monocytes/Leukocytes Auto (Bld) [Pure # fraction] 0.5 E9/L Normal 0.2-1.0 [facility] Comment on above: Order Comment: Order Added by Valeria Expert. Performed By: #### 2 374075, 17649603, 3655053, 6340425, 5080118, 8746623 #### [facility] [address] [place] [address] Neutrophils/100 WBC (Bld) 76.2 % High 36.0-75.0 [facility] Comment on above: Order Comment: Order Added by Valeria Expert. Performed By: #### 2 939208, 27359578, 2722575, 1731404, 3739074, 9843206 #### [facility] [address] [place] [address] Neutrophils/Leukocyte s Auto (Bld) [Pure # fraction] 6.1 E9/L Normal 2.0-7.5 [facility] Comment on above: Order Comment: Order Added by Valeria Expert. Performed By: #### 2 849268, 22028207, 3543512, 5109931, 6863302, 0518810 #### [facility] [address] [place] [address] BMPon 07-07-2023 Creatinine [Mass/Vol] 0.8 mg/dL Normal 0.5-1.3 [facility] Comment on above: Performed By: #### 2 238110, 35904704, 9509190, 2110314, 4052702, 9297582 #### [facility] [address] [place] [address] Urea nitrogen [Mass/Vol] 13 mg/dL Normal 5-21 [facility] Comment on above: Performed By: #### 2 736764, 53025851, 3815875, 0743132, 0243233, 5042564 #### [facility] [address] [place] [address] Urea nitrogen/Creatinine [Mass ratio] 16 No Units Normal 10-20 [facility] Comment on above: Performed By: #### 2 934636, 21292447, 1716749, 7688316, 8246456, 7412579 #### [facility] [address] [place] [address] Anion gap [Moles/Vol] 14 mmol/L Normal 6-16 [facility] Comment on above: Performed By: #### 2 494173, 38952375, 1897491, 9837658, 9262032, 1497435 #### [facility] [address] [place] [address] Calcium [Mass/Vol] 8.7 mg/dL Low 8.9-11.1 [facility] Comment on above: Performed By: #### 2 854820, 79775180, 4467807, 9144335, 6239551, 0388123 #### [facility] [address] [place] [address] Chloride [Moles/Vol] 100 mmol/L Low 101-111 [facility] Comment on above: Performed By: #### 2 795832, 03788476, 8805643, 8191295, 9200058, 9515188 #### [facility] [address] [place] [address] CO2 [Moles/Vol] 26 mmol/L Normal 21-31 [facility] Comment on above: Performed By: #### 2 744626, 54015998, 5881327, 7044288, 4957676, 6753025 #### [facility] [address] [place] [address] Glucose [Mass/Vol] 137 mg/dL Normal 55-199 [facility] Comment on above: Result Comment: If t his glucose result represents a fasting glucose, interpretation should refer to the following reference range: 55-99 mg/dL Performed By: #### 2 241774, 06369595, 6839932, 5464637, 1905107, 7489680 #### [facility] [address] [place] [address] Potassium [Moles/Vol] 4.3 mmol/L Normal 3.5-5.3 [facility] Comment on above: Performed By: #### 2 216639, 05642849, 5952119, 5874787, 7566142, 0639700 #### [facility] [address] [id number] Sodium [Moles/Vol] 136 mmol/L Normal 135-145 [facility] Comment on above: Performed By: #### 2 982427, 95685662, 1128677, 7960389, 8516071, 3330168 #### [facility] [address] [place] [address] BNPon 07-07-2023 Natriuretic peptide B (Bld) [Mass/Vol] 756 pg/mL High 5-80 [facility] Comment on above: Performed By: #### 2 202034, 00728517, 3310298, 7656337, 8259799, 9648461 #### [facility] [address] [place] [address] CBC w/ Auto Diffon Erythrocyte distribution width (RBC) [Ratio] 13.8 % Normal 10.9-14.2 [facility] Comment on above: Performed By: #### 2 007549, 04904208, 5190376, 7362927, 4019474, 2487622 #### [facility] [address] [place] [address] Hematocrit (Bld) [Volume fraction] 40.3 % Normal 34.0-46.0 [facility] Comment on above: Performed By: #### 2 822647, 90379099, 6360851, 0894680, 1256015, 3570304 #### [facility] [address] [place] [address] Hemoglobin (Bld) [Mass/Vol] 13.0 g/dL Normal 12.0-16.0 [facility] Comment on above: Performed By: #### 2 694991, 99692722, 6645519, 8366332, 7107601, 1235480 #### [facility] [address] [place] [address] MCH (RBC) [Entitic mass] 29.2 pg Normal 27.0-34.0 [facility] Comment on above: Performed By: #### 2 188031, 50700472, 3421081, 2549684, 5641313, 3937189 #### [facility] [address] [place] [address] MCHC (RBC) [Mass/Vol] 32.3 g/dL Normal 31.4-36.0 [facility] Comment on above: Performed By: #### 2 933048, 18792885, 4299324, 1810348, 1458252, 2365101 #### [facility] [address] [place] [address] MCV (RBC) [Entitic vol] 90.2 fL Normal 80.0-100.0 [facility] Comment on above: Performed By: #### 2 531496, 77506281, 6578261, 4707412, 6267791, 0892704 #### [facility] [address] [place] [address] Platelet mean volume (Bld) [Entitic vol] 8.5 fL Normal 6.4-10.8 [facility] Comment on above: Performed By: #### 2 608377, 04685851, 9249821, 8737064, 0986565, 2412562 #### [facility] [address] [place] [address] Platelets (Bld) [#/Vol] 291.0 E9/L Normal 150.0-500.0 [facility] Comment on above: Performed By: #### 2 304432, 03477363, 2384778, 5404626, 7947266, 9854420 #### [facility] [address] [place] [address] RBC (Bld) [#/Vol] 4.5 E12/L Normal 4.3-5.9 [facility] Comment on above: Performed By: #### 2 841854, 11434596, 4924588, 2931213, 9169868, 2890868 #### [facility] [address] [place] [address] WBC corrected for nucl RBC Auto (Bld) [#/Vol] 8.0 E9/L Normal 4.0-11.0 [facility] Comment on above: Performed By: #### 2 395993, 88935545, 0910962, 3125415, 5202897, 8443505 #### [facility] [address] [place] [address] CHEMISTRYOrdered By: SYSTEM SYSTEM on 07-07-2023 Troponin I.cardiac [Mass/Vol] 42.10 pg/mL Invalid Interpretation Code 10.10 - 27.10 pg/mL [facility] Remisol Comment on above: Result Comment: Crit ical Result verified by previous result\ Critical Result I_hsTnI:42.1 Called to NEO WING at by DAMIEN CORREA and read back for confirmation at 07/07/2023 12:28:40 Interpretive Data: T he 95% CI (Confidence Interval) PPV (Positive Predictive Value) for myocardial infarction in females is 38 pg/mL, in males 51 pg/mL. The results should be used in conjunction with clinical conditions of myocardial infarction. (Access High Sensitivity Troponin I Instructions For Use, [employer], March 2018) Anion gap [Moles/Vol] 14 mmol/L [...] 77 mL/min/1.73 m2 Normal >=59mL/min/1 .73 m2 [facility] Chem S Comment on above: Interpretive Data: [...] 756 pg/mL High 5 - 80 pg/mL [facility] HemeManSS COAGULATIONOrdered By: Fay Tran on 07-07-2023 aPTT Coag (PPP) [Time] 28.4 s Normal 25.1 - 36.5 second(s) [facility] Auto Coag Comment on above: Interpretive Data: [...] the same coagulation reagent and instrumentation as [facility]. Currently there are no coagulation studies available worldwide for children to 14 days, and no normal ranges. Heparin therapeutic range (represented by Anti-Factor Xa activity of 0.2 - 0.4 U/mL) corresponds to PTT of 56.6 - 109.0 sec. INR Coag (PPP) [Relative time] 1.0 {INR} Invalid Interpretation Code [facility] Auto Coag Comment on above: Interpretive Data: I NR results are specifically intended to assess patients stabilized on long-term Anticoagulation therapy suggested INR s Less Intensive Anticoagulation 2.0 3.0 Conventional Range 3.0 4.5 PT Coag (PPP) [Time] 11.3 s Normal 9.4 - 1 2.5 second(s) [facility] Auto Coag Comment on above: Interpretive Data: [...] the same coagulation reagent and instrumentation as [facility]. Currently there are no coagulation studies available worldwide for children to 14 days, and no normal ranges. Consent for Procedure/Surger yon 07-07-2023 Consent for Procedure/Surgery [id number]# 1.00TIFF Normal [facility] Consent for Treatmenton 06-15 Consent for Treatment [id number]#1 .00TIFF Normal [facility] Discharge Instructionson Discharge Instructions [id number]#1 .00TIFF Normal [facility] ED Clinical Summaryon 2022 ED Clinical Summary [place] [id number] ED Clinical Summary Person Information Name: HARJIT ASENCIO I Patricia/[facility] Age: 73 Years : 1950 Sex: Female Language: Qatari PCP: Peggy Nazario MD Marital Status: Visit [...] 07/07/2023 13:04:13 07/07/2023 13:04:13 07/07/2023 13:04:13 ADDRESS: [address] [place] [address] [facility] [id number] PHYS DOC NOTES: MEDICAL INFORMATION: Prescriptions Given: [...] up: With: Address: When: Johan HENRIQUEZ [address] [place] [phone] Business (1) In 3 days 07/10/2023 With: Address: When: Peggy Bermudezby [address] [place] [address] Flotype (1) In 3 days 07/10/2023 DIAGNOSIS: A-fib; Anxiety Normal [facility] ED Note-Nursingon 07-07-2023 ED Note-Nursing discussed in length medications pt needs to take yet today and need to mushroom picker Rx 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 Normal [facility] ED Patient Education Noteon 07-07-2023 ED [...] signals of the heart. ? An ambulatory surveillance system monitor to record your heart's activity for [...] Trouble breathing. (more content not included)... Normal [facility] ED Patient Summaryon 023 ED Patient Summary [place] [id number] Patient Discharge Instructions Person Information Name: HARJIT ASENCIO I Age: 73 Years Arrival Date: 07/07/2023 08:56:07 Discharge Diagnosis: A-fib; Anxiety Primary Care Physician: Peggy Nazario MD Provider Information Primary Provider: Jeff Cross DO Advanced Clerical Production Worker:Noe Black PA-C The exam and treatment you received in the Emergency Department were for an urgent problem and are not intended as complete care. It is important that you follow up with a doctor, nurse practitioner, or physician?s assistant baseball coach for ongoing care. If your symptoms become [...] Instructions: With: Address: When: Johan MARTINEZ [address] [place] [phone] Flotype (1) In 3 days 07/10/2023 With: Address: When: Peggy Bermudezby [address] [place] [address] Flotype (1) In 3 days 07/10/2023 In the event that this physician does not participate in your insurance network, please consult with your insurance company to find a nearby participating provider. Patient Education Materials: Managing Anxiety, Adult; Atrial Fibrillation A MESSAGE TO ALL PATIENTS REGARDING OPIOIDS PRESCRIPTION OPIOIDS: WHAT YOU NEED TO KNOW Prescription opioids can be used to help relieve lnhpqkgn-ru-xpymtv pain and are often prescribed following a [...] addiction, tel (more content not included)... Normal [facility] HEMATOLOGYOrdered By: SYSTEM SYSTEM on 07-07-2023 [...] Correspondence Off iceon 07-07-2023 Insurance Correspondence Office [id number]#1 .00TIFF Normal [facility] Monitor Recordon 07-07-2023 Monitor Record [id number]# 1.00TIFF Normal [facility] Monitor Record [id number]# 1.00TIFF Normal [facility] Monitor Record [id number]# 1.00TIFF Normal [facility] PT & PTTon 07-07-2023 aPTT Coag (PPP) [Time] 28.4 second(s) Normal 25.1-36.5 [facility] Comment on above: Result Comment: Para [...] the same coagulation reagent and instrumentation as [facility]. Currently there are no coagulation studies available worldwide for children to 14 days, and no normal ranges. Heparin therapeutic range (represented by Anti-Factor Xa activity of 0.2 - 0.4 U/mL) corresponds to PTT of 56.6 - 109.0 sec. Performed By: #### 2 514890, 28132200, 7173075, 5333519, 3861676, 5402986 #### [facility] [address] [place] [address] INR Coag (PPP) [Relative time] 1.0 {INR} Invalid Interpretation Code [facility] Comment on above: Result Comment: INR results are specifically intended to assess patients stabilized on long-term Anticoagulation therapy suggested INR?s ?Less Intensive Anticoagulation? 2.0 ? 3.0 Conventional Range 3.0 ? 4.5 Performed By: #### 2 735053, 16591199, 1101650, 5132399, 6362611, 1938634 #### [facility] [address] [place] [address] PT Coag (PPP) [Time] 11.3 second(s) Normal 9.4-12.5 [facility] Comment on above: Result Comment: 15 [...] the same coagulation reagent and instrumentation as [facility]. Currently there are no coagulation studies available worldwide for children to 14 days, and no normal ranges. Performed By: #### 2 662908, 53038377, 7057332, 6972991, 0044980, 4415054 #### [facility] [address] [place] [address] Troponin 0 Hr.on 07-07-2023 Troponin I.cardiac [Mass/Vol] 39.60 pg/mL Abnormal 10.10-27.10 [facility] Comment on above: Result Comment: Crit ical Result verified by repeat analysis\ Critical Result I_hsTnI:39.6 Called to TANESHA BAUMANN at by DAMEIN CORREA and read back for confirmation at 07/07/2023 10:30:10 The 95% CI (Confidence Interval) PPV (Positive Predictive Value) for myocardial infarction in females is 38 pg/mL, in males 51 pg/mL. The results should be used in conjunction with clinical conditions of myocardial infarction. (Access High Sensitivity Troponin I Instructions For Use, [employer], March 2018) Performed By: #### 2 058108, 71439417, 6563017, 6930402, 0605368, 9846322 #### [facility] [address] [place] [address] Troponin 3 Hr.on 07-07-2023 Troponin I.cardiac [Mass/Vol] 42.10 pg/mL Abnormal 10.10-27.10 [facility] Comment on above: Result Comment: Crit [...] High Sensitivity Troponin I Instructions For Use, [employer], March 2018) Performed By: #### 1 [id number] ####[facility] [address] [place] [address] XR Chest Single Viewon 07-07 XR Chest [...] mGy = na DAP = na Normal [facility] eGFRon 07-07-2023 GFR/1.73 sq M.predicted among non-blacks MDRD (S/P/Bld) [Vol rate/Area] 77 mL/min/1.73 m2 Normal >=59 [facility] Comment on above: Order Comment: Order added by Discern Expert. Result Comment: Instantizer Operator luis kidney disease could be indicated at eGFR's of less than 60 mL/min/1.73m2. Kidney failure is indicated at less than 15 mL/min/1.73m2. Performed By: #### 2 069005, 95217799, 4348895, 0918817, 7394597, 2215352 #### [facility] [address] [place] [address] BMPon 07-06-2023 Anion gap [Moles/Vol] 5 mmol/L Low 6-16 [facility] Comment on above: Performed By: #### 2 100699, 68419110, 7888585, 9818911, 7309101, 0823004 #### [facility] [address] [place] [address] Calcium [Mass/Vol] 8.0 mg/dL Low 8.9-11.1 [facility] Comment on above: Performed By: #### 2 645263, 30285217, 1320581, 6629937, 3378123, 3487390 #### [facility] [address] [place] [address] Chloride [Moles/Vol] 109 mmol/L Normal 101-111 [facility] Comment on above: Performed By: #### 2 089348, 74741224, 9335286, 0930668, 6969644, 1416924 #### [facility] [address] [place] [address] CO2 [Moles/Vol] 28 mmol/L Normal 21-31 [facility] Comment on above: Performed By: #### 2 038115, 64441896, 8450239, 9556921, 5706609, 0352213 #### [facility] [address] [place] [address] Creatinine [Mass/Vol] 0.7 mg/dL Normal 0.5-1.3 [facility] Comment on above: Performed By: #### 2 205301, 96228684, 2496749, 7971862, 1326855, 2529741 #### [facility] [address] [place] [address] Glucose [Mass/Vol] 91 mg/dL Normal 55-199 [facility] Comment on above: Result Comment: If t his glucose result represents a fasting glucose, interpretation should refer to the following reference range: 55-99 mg/dL Performed By: #### 2 294524, 26203982, 3505356, 8524714, 8998931, 4244373 #### [facility] [address] [place] [address] Potassium [Moles/Vol] 3.9 mmol/L Normal 3.5-5.3 [facility] Comment on above: Performed By: #### 2 493515, 62763707, 5597748, 0892664, 9194639, 8832323 #### [facility] [address] [place] [address] Sodium [Moles/Vol] 138 mmol/L Normal 135-145 [facility] Comment on above: Performed By: #### 2 767445, 92248347, 9480301, 0379446, 7919804, 8316517 #### [facility] [address] [place] [address] Urea nitrogen [Mass/Vol] 12 mg/dL Normal 5-21 [facility] Comment on above: Performed By: #### 2 469821, 01842348, 5853728, 7265862, 9041635, 4374300 #### [facility] [address] [place] [address] Urea nitrogen/Creatinine [Mass ratio] 17 No Units Normal 10-20 [facility] Comment on above: Performed By: #### 2 730423, 12819784, 4436934, 4115057, 6510558, 5466168 #### [facility] [address] [place] [address] CHEMISTRYOrdered By: SYSTEM SYSTEM on 07-06-2023 Anion gap [Moles/Vol] 5 mmol/L Low 6 - 16 mEq/L [facility] Remisol Calcium [Mass/Vol] 8.0 mg/dL Low 8.9 - 11. 1 mg/dL [facility] Remisol Chloride [Moles/Vol] 109 mmol/L Normal 101 - 1 11 mmol/L [facility] Remisol CO2 [Moles/Vol] 28 mmol/L Normal 21 - 31 mmol/L [facility] Remisol Creatinine [Mass/Vol] 0.7 mg/dL Normal 0.5 - 1.3 mg/dL [facility] Remisol GFR/1.73 sq M.predicted among non-blacks MDRD (S/P/Bld) [Vol rate/Area] 90 mL/min/1.73 m2 Normal >=59mL/min/1 .73 m2 [facility] Chem S Comment on above: Interpretive Data: C hronic kidney disease could be indicated at eGFR's of less than 60 mL/min/1.73m2. Kidney failure is indicated at less than 15 mL/min/1.73m2. Glucose [Mass/Vol] 91 mg/dL Normal 55 - 199 mg/dL [facility] Remisol Comment on above: Interpretive Data: I f this glucose result represents a fasting glucose, interpretation should refer to the following reference range: 55-99 mg/dL Potassium [Moles/Vol] 3.9 mmol/L Normal 3.5 - 5.3 mmol/L [facility] Remisol Sodium [Moles/Vol] 138 mmol/L Normal 135 - 145 mmol/L [facility] Remisol Urea nitrogen [Mass/Vol] 12 mg/dL Normal 5 - 21 mg/dL [facility] Remisol Urea nitrogen/Creatinine [Mass ratio] 17 mg/mg Normal 10 - 20 [facility] Remisol Discharge Note-Nursingon Discharge Note-Nursing HARJIT ASENCIO I :1950 Visit Date:07/02/2023 Inpatient Discharge Instructions Your Care Team Admitting Physician - Noman PATTON DO Consulting Physician - DYLAN MCMAHON, Cody Goff MD, Eb Yeh [facility] Cardio, XXXX Reason for Your Visit I [...] MCMAHON, Micheline Morgan Where: [facility] Inpatient Clinical Summaryon 07-06-2023 Inpatient Clinical Summary [address] [address] Clinical Summary Person Information: Name: HARJIT ASENCIO I Age: 73 Years : 1950 Sex: Female PCP: Peggy Nazario MD Marital Status: Race: White Ethnicity: Non- or Language: Qatari Visit Id: Visit Reason: Genitourinary problem; 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 Speciality: Acuity: Enc Type: Observation Med Service: Medical Arrival: 07/02/2023 21:17:31 Discharge: Dispo Type: Admitted as IP to this Hosp Address: [address] [place] [address] [address] [facility] [phone] Provider Notes: Diagnosis: 1:Atrial fibrillation with RVR; [...] MCMAHON, Eb Yeh; DYLAN MCMAHON, Cody Dumont; [facility] Cardio, XXXX Referring Physician: Follow up: With: Address: When: Johan HENRIQUEZ [address] [place] [address] [phone] Business (1) Within 2 weeks Comments: Call for followup appointment With: Address: When: Peggy Nazario [address] [place] [address] Business (1) 07/10/2023 1:00 PM With: Address: When: Micheline BROOKS [facility], [address] [place] [address] Business (1) Comments: Call for followup appointment re: the indwelling Robles catheter. Type Location Start [facility] Office Visit [facility] WILL Silva 11/22/2023 1:00 PM 11/22/2023 1:15 PM Confirmed Patient Education Information: CV - Cardiovascular Discharge Instructions (Custom) Normal [facility] Inpatient Patient Summaryon 07-06-2023 Inpatient Patient Summary [address] [id number] Patient Discharge Instructions PERSON INFORMATION Name: HARJIT [...] Follow up: With: Address: When: Johan HENRIQUEZ [address] [place] [phone] Business (1) Within 2 weeks Comments: Call for followup appointment With: Address: When: Peggy Nazario [address] [place] [address] Flotype (1) 07/10/2023 1:00 PM With: Address: When: Micheline BROOKS [facility], [address], [place] [address] Flotype (1) Comments: Call for followup appointment re: the indwelling Robles catheter. In the event that this physician does not participate in your insurance network, please consult with your insurance company to find a nearby participating provider. Type Location Start [facility] Office Visit [facility] WILL Silva 11/22/2023 1:00 PM 11/22/2023 1:15 PM Confirmed Comment: ELIF Ruiz JOYCE I, have received the attached patient education materials/instruction s and have verbalized understanding: Patient Signature Date Clinican/Nurse Signature Date HERE ARE THE MEDICATION CHANGES THAT OCCURRED DURING YOUR HOSPITAL STAY New Medications [id number], [address] [place], [place] [id number], [phone] apixaban (Eliquis 5 mg oral tablet) 1 [...] day. Refills (more content not included)... Normal [facility] Interdisciplinary Note - Tico e Manageron 07-06-2023 Interdisciplinary Note - Driver License Agent Pt is awake and alert in bed, previously rounded with Dr. Serrato. Await cardiology to see and anticipate DC home later today. Declines any concerrns or DC needs. Brilinta was priced out yesterday $183 and coupon provided. . PCP verified and insurance information reviewed and DME discussed. Contact information provided and white board updated. Normal [facility] Comment on above: Result Comment: Elec tronically Signed By: Martín ALFORD, Radha\.br\Date and Time Signed: 07/06/23 12:06 EST Monitor Recordon 07-06-2023 Monitor Record [id number]# 1.00TIFF [facility] Monitor Record [id number]# 1.00TIFF [facility] Monitor Record [id number]# 1.00TIFF [facility] Progress Note-Physicianon Progress Note-Physician Assessment/Plan 73-year-old female with history of ureteral stricture with previous dilations, anxiety disorder presented with complaints of urinary hesitancy, constipation, cough and shortness of breath and was admitted to [facility] with acute paroxysmal atrial fibrillation with [...] IV Cardizem drip. Continue on Coreg, digoxin. Last Cleaner debating on starting patient on amiodarone. Eliquis to start in 4 days after cardiac catheterization. Ordered: [facility] Care/Day Moderate 35 Minutes 22947 2. Acute systolic congestive heart failure (I50.21: Acute systolic (congestive) heart failure) Acute systolic congestive heart failure?present on admission. Seen by dental assistant and underwent cardiac catheterization that showed mild coronary artery disease. Also shows severe mitral regurgitation and tricuspid regurgitation with ejection fraction of 30 to 35%. Continue on aspirin, Coreg, losartan and Lasix. Ordered: [facility] Care/Day Moderate 35 Minutes 71865 3. Severe mitral regurgitation (I34.0: Nonrheumatic mitral (valve) insufficiency) As seen on cardiac catheterization. Patient will follow-up with dental assistant for HAROON and then valvular repair. Last Cleaner also considering transferring patient to or [facility]. Ordered: [facility] Care/Day Moderate 35 Minutes 29998 4. Elevated troponin (R79.89: Other specified abnormal findings of blood chemistry) Secondary to type II non-ST segment elevation myocardial infarction from above and mild coronary artery disease.. Seen by dental assistant and underwent cardiac catheterization that showed mild coronary artery disease. Continue on aspirin, Lipitor, and Coreg. Ordered: [facility] Care/Day Moderate 35 Minutes 06965 5. Mild coronary artery disease (I25.10: Atherosclerotic heart disease of [place] coronary artery without angina pectoris) As seen on cardiac catheterization on 07/05/2023. Continue on Lipitor and aspirin. Ordered: [facility] Care/Day Moderate 35 Minutes 85153 6. 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 Eliquis to resume in 4 days. Disposition: Home soon today if heart rate is under good control with plans to follow-up with dental assistant and urologist as outpatient. However if heart rate is still elevated then we will call [facility] or [facility] to see if we can transfer patient for valve repair/replacement. I discussed the diagnosis and plan of care with the patient at the bedside. Moderate level of MDM based on addressing above issues. This documentation was transcribed using voice recognition software. Several attempts were made to ensure accuracy. However inadvertent computerized transition of care specialist errors may be present. Nahid Serrato. Hospitalist. [...] Panel eGF (more content not included)... Normal [facility] Comment on above: Result Comment: Elec [...] is going to get to the [facility] or [facility] for mitral valve/tricuspid valve surgery. Despite all [...] to transfer the patient directly to the [place] [facility] given her logistic challenges with getting [...] artery disease (I25.10: Atherosclerotic heart disease of absentee-shawnee coronary artery without angina pectoris) 6. Pleural effusion (J90: Pleural effusion, not elsewhere classified) 7. Urinary hesitancy (R39.11: Hesitancy of micturition) 8. Other urethral stricture, female (N35.82: Oth (more content not included)... Normal [facility] Comment on above: Result Comment: Elec tronically Signed By: MARTINEZ MCMAHON, Johan Patino\.br\Date and Time Signed: 07/06/23 09:22 EST eGFRon 07-06-2023 GFR/1.73 sq M.predicted among non-blacks MDRD (S/P/Bld) [Vol rate/Area] 90 mL/min/1.73 m2 Normal >=59 [facility] Comment on above: Order Comment: Order Added by Discern Expert. Result Comment: Instantizer Operator luis kidney disease could be indicated at eGFR's of less than 60 mL/min/1.73m2. Kidney failure is indicated at less than 15 mL/min/1.73m2. Performed By: #### 2 [id number], [id number], 2714644, 0343705, 6860267, 5019633 #### [facility] [address] [place] [address] BMPon 07-05-2023 Anion gap [Moles/Vol] 9 mmol/L Normal 6-16 [facility] Comment on above: Performed By: #### 1 0563079, 3790377 ####[facility] [address] [facility] [address] Calcium [Mass/Vol] 8.2 mg/dL Low 8.9-11.1 [facility] Comment on above: Performed By: #### 1 [id number], 2174811 ####[facility] [address] [facility] [facility] [address] Chloride [Moles/Vol] 105 mmol/L Normal 101-111 [facility] Comment on above: Performed By: #### 1 [id number], 0667989 ####[facility] [address] [place] [address] CO2 [Moles/Vol] 27 mmol/L Normal 21-31 [facility] Comment on above: Performed By: #### 1 1776939, 9639667 ####[facility] [address] [place] [address] Creatinine [Mass/Vol] 0.7 mg/dL Normal 0.5-1.3 [facility] Comment on above: Performed By: #### 1 2679358, 6106427 ####[facility] [address] [place] [address] Glucose [Mass/Vol] 115 mg/dL Normal 55-199 [facility] Comment on above: Result Comment: If t his glucose result represents a fasting glucose, interpretation should refer to the following reference range: 55-99 mg/dL Performed By: #### 1 [id number], 4544465 ####[facility] [address] [facility] [place] [address] Potassium [Moles/Vol] 4.3 mmol/L Normal 3.5-5.3 [facility] Comment on above: Performed By: #### 1 4639903, 6055804 ####[facility] [address] [place] [address] Sodium [Moles/Vol] 137 mmol/L Normal 135-145 [facility] Comment on above: Performed By: #### 1 6667097, 8387660 ####[facility] [address] [place] [address] Urea nitrogen [Mass/Vol] 13 mg/dL Normal 5-21 [facility] Comment on above: Performed By: #### 1 3384944, 6428382 ####[facility] [address] [place] [address] Urea nitrogen/Creatinine [Mass ratio] 19 No Units Normal 10-20 [facility] Comment on above: Performed By: #### 1 6031291, 3478286 ####[facility] [address] [place] [address] CHEMISTRYOrdered By: SYSTEM SYSTEM on 07-05-2023 Anion gap [Moles/Vol] 9 mmol/L Normal 6 - 16 mEq/L [facility] Remisol Calcium [Mass/Vol] 8.2 mg/dL Low 8.9 - 11. 1 mg/dL [facility] Chloride [Moles/Vol] 105 mmol/L Normal 101 - 1 11 mmol/L [facility] CO2 [Moles/Vol] 27 mmol/L Normal 21 - 31 mmol/L [facility] Creatinine [Mass/Vol] 0.7 mg/dL Normal 0.5 - 1.3 mg/dL [facility] GFR/1.73 sq M.predicted among non-blacks MDRD (S/P/Bld) [Vol rate/Area] 90 mL/min/1.73 m2 Normal >=59mL/min/1 .73 m2 [facility] Chem S Comment on above: Interpretive Data: C hronic kidney disease could be indicated at eGFR's of less than 60 mL/min/1.73m2. Kidney failure is indicated at less than 15 mL/min/1.73m2. Glucose [Mass/Vol] 115 mg/dL Normal 55 - 199 mg/dL [facility]isol Comment on above: Interpretive Data: I f this glucose result represents a fasting glucose, interpretation should refer to the following reference range: 55-99 mg/dL Potassium [Moles/Vol] 4.3 mmol/L Normal 3.5 - 5.3 mmol/L [facility] Sodium [Moles/Vol] 137 mmol/L Normal 135 - 145 mmol/L [facility] Urea nitrogen [Mass/Vol] 13 mg/dL Normal 5 - 21 mg/dL [facility] Remisol Urea nitrogen/Creatinine [Mass ratio] 19 mg/mg Normal 10 - 20 [facility]isol CHEMISTRYOrdered By: Lab ROP User on 07-05-2023 Glucose [Mass/Vol] 79 mg/dL Normal 55 - 99 mg/dL [facility] POC Subsection Comment on above: Result Comment: Neli cain RN/ POC Username NIKHIL PAULSON Invalid Interpretation Code [facility] POC Subsection Sodium [Moles/Vol] 793668545690 mmol/L Invalid Interpretation Code [facility] POC Subsection Sodium [Moles/Vol] 556982274 mmol/L Invalid Interpretation Code [facility] POC Subsection Capillary Glucose POCon 06-15 Glucose [Mass/Vol] 79 mg/dL Normal 55-99 [facility] Comment on above: Result Comment: Neli PIÑA Performed By: #### 1 [id number] #### [facility] [address] [place] [address] Cardiovascular Reporton 06-15 Cardiovascular Report [id number]# 1.00TIFF Normal [facility] Monitor Recordon 07-05-2023 Monitor Record [id number]# 1.00TIFF Normal [facility] Monitor Record [id number]# 1.00TIFF Normal [facility] Monitor Record [id number] 1 [id number]# 1.00TIFF Normal [facility] Monitor Record [id number] 1 [id number]# 1.00TIFF Normal [facility] Monitor Record [id number]# 1.00TIFF Normal [facility] Operative Reporton Operative Report SURGERY DATE: [...] an exchange length J-wire. Next a 4 St Helenian sheath was placed without complications and flushed with heparinized saline. Next the right femoral vein was accessed with a single anterior stick of a Cook needle followed by placement of a short J-wire under fluoroscopic guidance. Next a 7 St Helenian sheath was placed without complications and flushed with heparinized saline. Next a balloon tip [place]ch[place]-Lois catheter was advanced under fluoroscopic guidance into [...] by thermal was 2.57. Next a 4 St Helenian angled pigtail catheter was easily advanced into the left ventricular chamber. AO saturation was 84%. PA saturation was 46%. Simultaneous LV and wedge pressure demonstrated a large V wave indicating severe mitral regurgitation. Simultaneous LV and RV pressures demonstrated no overt evidence of pericardial constriction although the patient is in atrial fibrillation making that somewhat problematic. [place]ch[place]-Lois catheter was then removed. The LV angiogram performed in the 30 degree right anterior oblique position demonstrated severe global LV dysfunction with an ejection fraction around 25-30%. There was severe mitral regurgitation which completely filled the left atrium after the second beat. There was no significant gradient seen on pullback. Next the pigtail catheter was exchanged over a wire for a 4 St Helenian JL5 catheter. This was easily engaged into [...] exchanged over a wire for a 4 St Helenian 3DRC catheter. This was easily engaged into the right coronary artery. There was no dampening or ventricularization upon engagement. Right coronary artery: The right coronary artery is a moderate size dominant vesse (more content not included)... Normal [facility] Comment on above: Result Comment: Elec tronically Signed By: MARTINEZ MCMAHON, Johan Patino\.zak\Date and Time Signed: 07/05/23 11:46 EST Progress Note-Nurseon 2022 Progress Note-Nurse mill labor supervisor made aware patient last dose of lovenox was given on 07/04/23 @ 7653. Normal [facility] Progress Note-Physicianon Progress Note-Physician Assessment/Plan 73-year-old female with history of ureteral stricture with previous dilations, anxiety disorder presented with complaints of urinary hesitancy, constipation, cough and shortness of breath and was admitted to [facility] with acute paroxysmal atrial fibrillation with [...] 07/06/23 9:00:00 EST, 07/05/23 11:13:00 EST [facility] Hospital Care/Day Moderate 35 Minutes 33221 2. Acute systolic congestive heart failure (I50.21: Acute systolic (congestive) heart failure) Acute systolic congestive heart failure?present on admission. Seen by dental assistant. She is status post cardiac catheterization that showed mild coronary artery disease. Also showed severe mitral regurgitation and tricuspid regurgitation.. Ejection fraction of 30 to 35%. Continue on aspirin, Coreg, losartan, Lasix. Ordered: [facility] Care/Day Moderate 35 Minutes 60402 3. Severe mitral regurgitation (I34.0: Nonrheumatic mitral (valve) insufficiency) Severe mitral regurgitation?seen on cardiac catheterization. Follow-up with dental assistant as outpatient for HAROON and then valvular repair. Ordered: [facility] Care/Day Moderate 35 Minutes 80001 4. Elevated troponin (R79.89: Other specified abnormal findings of blood chemistry) Secondary to type II non-ST segment elevation myocardial infarction from above and mild coronary artery disease.. Seen by dental assistant and underwent cardiac catheterization that showed mild coronary artery disease. Continue on aspirin, Lipitor, and Coreg. Ordered: furosemide, 40 mg = 1 tab(s), Tab, Oral, Daily, Routine, Start date 07/06/23 9:00:00 EST, 07/05/23 11:13:00 EST [facility] Care/Day Moderate 35 Minutes 64239 5. Mild coronary artery disease (I25.10: Atherosclerotic heart disease of absentee-shawnee coronary artery without angina pectoris) As seen on cardiac catheterization on 07/06/2023. Continue on Lipitor and aspirin. Ordered: [facility] Care/Day Moderate 35 Minutes 85059 6. 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 Disposition: Home in a.m. to follow-up with dental assistant and urologist. I discussed the diagnosis and plan of care with the patient at the bedside. Moderate level of MDM based on addressing above issues. This documentation was transcribed using voice recognition software. Several attempts were made to ensure accuracy. However inadvertent computerized transition of care specialist errors may be present. Nahid Serrato. Hospitalist. [...] Output This (more content not included)... Normal [facility] Comment on above: Result Comment: Elec tronically Signed By: JAZMÍN MCMAHON, Nahid\.br\Date and Time Signed: 07/05/23 11:19 EST eGFRon 07-05-2023 GFR/1.73 sq M.predicted among non-blacks MDRD (S/P/Bld) [Vol rate/Area] 90 mL/min/1.73 m2 Normal >=59 [facility] Comment on above: Order Comment: Order added by Discern Expert. Result Comment: Instantizer Operator luis kidney disease could be indicated at eGFR's of less than 60 mL/min/1.73m2. Kidney failure is indicated at less than 15 mL/min/1.73m2. Performed By: #### 1 [id number], [id number] ####[facility] [address] [place] [address] Monitor Recordon 07-04-2023 Monitor Record [id number]# 1.00TIFF Normal [facility] Monitor Record [id number] 1 [id number]# 1.00TIFF Normal [facility] Monitor Record [id number] 1 [id number]# 1.00TIFF Normal [facility] Monitor Record [id number]# 1.00TIFF Normal [facility] Patient Education - Texton 1 09-03-2022 Patient Education - Text [facility] Progress Note-Physicianon Progress Note-Physician Assessment/Plan 73-year-old female with history of ureteral stricture with previous dilations, anxiety disorder presented with complaints of urinary hesitancy, constipation, cough and shortness of breath and was admitted to [facility] with acute paroxysmal atrial fibrillation with [...] BID, # 60 tab(s), Refills(s) 0, Pharmacy: [facility] #[id number], 165, cm, 07/02/23 21:30:00 EST, Height/Length Dosing, 55.7, kg, 07/02/23 21:30:00 EST, Weight Dosing Echo Transthoracic Complete [facility] Care/Day Moderate 35 Minutes 13180 2. Acute systolic congestive heart failure (I50.21: Acute systolic (congestive) heart failure) Acute systolic congestive heart failure?present on admission. Cardiology is following. Ejection fraction of 30 to 35%. Cardiology is planning on cardiac catheterization for ischemic work-up in AM. Meanwhile continue on aspirin, Coreg, losartan. We will verify with dental assistant about Lasix. Ordered: [facility] Hospital Care/Day Moderate 35 Minutes 34757 3. Elevated troponin (R79.89: Other specified abnormal findings of blood chemistry) Secondary to type II non-ST segment elevation myocardial infarction from above. Echocardiogram shows ejection fraction of 30 to 35%. Last Cleaner following with plans for cardiac catheterization in AM. Meanwhile continue on aspirin and Coreg. Ordered: Echo Transthoracic Complete [facility] Hospital Care/Day Moderate 35 Minutes 45632 4. Pleural effusion (J90: Pleural effusion, not elsewhere classified) Small pleural effusion?secondary to acute systolic congestive heart failure. Supportive care. Lasix as needed. Ordered: [facility] Hospital Care/Day Moderate 35 Minutes 44068 5. Urinary hesitancy (R39.11: Hesitancy of micturition) Secondary to urethral stricture and urinary retention. She is status post Robles catheter placement. Urology consult reviewed by me. I appreciate and agreed recommendations. Patient will discharge with Robles catheter and leg bag to follow-up with urologist as outpatient. Ordered: [facility] Care/Day Moderate 35 Minutes 53724 6. Other urethral stricture, female (N35.82: Other [...] NOW, Start date 07/03/23 11:16:00 EST [facility] Care/Day Moderate 35 Minutes 23617 9. On deep vein thrombosis (DVT) prophylaxis (Z79.899: Other care home (current) drug therapy) Lovenox. Disposition: Pending cardiac catheterization in AM. I discussed the diagnosis and plan of care with the patient at the bedside. I also spoke with the patient's daughter Mandeep over the phone. Moderate level of MDM based on addressing above issues. This documentation was transcribed using voice recognition software. Several attempts were made to ensure accuracy. However inadvertent computerized transition of care specialist errors may be present. Nahid Serrato. Hospitalist. [...] -- 176.8 (more content not included)... 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 Normal [facility] Comment on above: Result Comment: Elec tronically Signed By: MARTINEZ MCMAHON, Johan Patino\.zak\Date and Time Signed: 07/04/23 08:04 EST CHEMISTRYOrdered By: SYSTEM SYSTEM on 07-03-2023 Cholesterol [Mass/Vol] 145 mg/dL Normal 120 - 200 mg/dL [facility] Remisol Cholesterol in HDL [Mass/Vol] 43 mg/dL Invalid Interpretation Code [facility]isol Comment on above: Interpretive Data: H [...] Sensitivity Troponin I Instructions For Use, Marlys SwypeShield, March 2018) TSH Qn 3.83 m[IU]/L Normal 0.34 - 5.60 mcIU/mL [facility] Remisol CHEMISTRYOrdered By: Dulce Maria Correa on 07-03-2023 HbA1c (Bld) [Mass fraction] 5.5 % Normal <=5.9% [facility] ChemAutoSS Consultation Noteon 07-03-20 Consultation Note Patient: [...] day(s), # 14 cap(s), Refills(s) 0, Pharmacy: [facility] #[id number], 165, cm, 06/30/23 19:37:00 EST, Height/Length Dosing, 55.7, kg, 06/30/23 19:37:00 EST, Weight Dosing Cipro 500 mg Tab: 500 mg = 1 tab(s), Oral, As Directed, Patient to take 1 tab the day before procedure and the 2nd tab the day of procedure once completed, # 2 tab(s), Refills(s) 0, Pharmacy: [facility] #[id number], 165, cm, 04/26/23 15:23:00 EDT, Height/Length Do... Estrace 0.1 mg/g Cream: 0.5 gm, Vaginal, MonFri, 42.5 gm, Refill(s) 6 Zofran ODT 4 mg Tab-Dis: 4 mg = 1 tab(s), Oral, q8hr, # 12 tab(s), Refills(s) 0, Pharmacy: [facility] #[id number], 165, cm, 06/30/23 19:37:00 EST, Height/Length Dosing, 55.7, kg, 06/30/23 19:37:00 EST, Weight Dosing Documented Medications Documented Ativan 0.5 mg Tab: 0.5 mg = 1 tab(s), Oral, TID, PRN as needed for anxiety, Refills(s) 0 Problem list: All Problems acid reflux / SNOMED CT 011837682 / Confirmed anxiety / SNOMED CT 31601126 / Confirmed Injury of nose / SNOMED CT 14851085 / Confirmed Superficial laceration of face / SNOMED CT 849101004 / Confirmed Acute gastroenteritis / SNOMED CT 446335775 / Confirmed Other urethral stricture, female / SNOMED CT 344743516 / Confirmed Nocturia / SNOMED CT 089478730 / Confirmed Urinary hesitancy / SNOMED CT 178365774 / Confirmed Former smoker / SNOMED CT 29522924 / Confirmed Urinary frequency / SNOMED CT 203473762 / Confirmed Feeling of incomplete bladder emptying / SNOMED CT 657533996 / Confirmed Urinary urgency / SNOMED CT 490664846 / Confirmed Dysuria / SNOMED CT 81579528 / Confirmed Suprapubic pain / SNOMED CT 733577832 / Confirmed Poor urinary stream / SNOMED CT 491863788 / Confirmed Cystocele with prolapse / SNOMED CT 601918336 / Confirmed Stranguria / SNOMED CT 340466192 / Confirmed History of urethral stricture / SNOMED CT 993759191 / Confirmed Weak urine stream / SNOMED CT 467844663 / Confirmed Atrophic vaginitis / SNOMED CT 93096971 / Confirmed Renal lesion / SNOMED CT 2214797151 / Confirmed Histories Past Medical History: Active acid reflux (729684141) anxiety (83661477) Acute gastroenteritis (205359826) Family History: Heart disease Father Diabetes mellitus type 2 Mother Procedure history: Cystourethroscopy with dilation of urethral stricture (811578834) on 10/25/2022 at 72 Years. Cystoscopy/UD (58657633) on 02/23/2021 at 70 Years. Dilation of urethra (74031844) on 02/01/2019 at 68 Years. Cysto/ UD (614940344) on 10/10/2017 at 67 Years. Hysterectomy. colon resection. Corneal implant (629825137). Tonsillectomy (063740202). Dilation of urethra (74451876). Comments: 08/09/2019 13:23 EST - Darshan SALAS, Tim Velazco (more content not included)... Normal [facility] Comment on above: Result Comment: Elec tronically Signed By: DYLAN MCMAHON, Cody Uriarte\Date and Time Signed: 07/03/23 19:12 EST ED Clinical Summaryon 2022 ED Clinical Summary [address] [address] ED Clinical Summary Person Information Name: HARJIT ASENCIO I Patricia/[facility] Age: 73 Years : 1950 Sex: Female Language: Qatari PCP: Peggy Nazario MD Marital Status: Visit Id: Visit Reason: Genitourinary problem; 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 Speciality: Acuity: 3 Enc Type: Observation Med Service: Emergency Arrival: 07/02/2023 21:17:31 Discharge: LOS: 000 05:33 Checkin: 07/02/2023 21:17:31 Checkout: 07/03/2023 02:50:11 Dispo Type: Admitted as IP to this [facility] EVENTS: Event Name Event Status Request Date/Time [...] 07/03/2023 02:36:18 07/03/2023 02:36:18 07/03/2023 02:36:19 ADDRESS: [address] [place] [id number] [facility] DOC NOTES: MEDICAL INFORMATION: Prescriptions Given: Medications [...] RVR; 3:New onset a-fib; 4:Elevated troponin Normal [facility] ED Note-Physicianon 07-03-20 ED Note-Physician Basic [...] and Complexity of Problems Differential Diagnosis: [] [facility] Data External documents reviewed: [] My [...] 0.9% intrave (more content not included)... Normal [facility] Comment on above: Result Comment: Elec tronically Signed By: Layton Crawford M.D.\.zak\Date and Time Signed: 07/03/23 08:17 EST ED Patient Education Noteon 07-03-2023 ED Patient Education Note Normal [facility] ED Patient Summaryon 023 ED Patient Summary [address] [address] Patient Discharge Instructions Person Information Name: HARJIT ASENCIO I Age: 73 Years Arrival Date: 07/02/2023 21:17:31 Discharge Diagnosis: 1:Urinary hesitancy; 2:Atrial fibrillation with RVR; 3:New onset a-fib; 4:Elevated troponin Primary Care Physician: Peggy Nazario MD Provider Information Primary Provider: Yvette Vasquez, Layton Cazares Advanced Clerical Production Worker:None The exam and treatment you received in the Emergency Department were for an urgent problem and are not intended as complete care. It is important that you follow up with a doctor, nurse practitioner, or physician?s assistant baseball coach for ongoing care. If your symptoms become [...] opioids can be used to help relieve xrjhqgnn-ox-skpobm pain and are often prescribed following a [...] be struggling with addiction, tell your health care worker and ask for guidance or call [facility]?S National Helpline at 6-500-684-BKAK. v Source: [place] Department of Health and Human Services/Center for Disease Control & Prevention [facility] (more content not included)... Normal [facility] Hep Func Panelon 07-03-2023 Albumin [Mass/Vol] 3.8 g/dL Normal 3.3-5.0 [facility] Comment on above: Performed By: #### 1 [id number], 8405508, 5472510, 5737996, 3341367, 88498988, 1205738 ####[facility] [place] [address] Albumin/Globulin (S) [Mass conc ratio] 1.3 Normal 1.1-2.2 [facility] Comment on above: Performed By: #### 1 6996286, 8418469, 6110156, 0739774, 8307867, 21043260, 3701280 ####[facility] [address] [place] [address] ALP [Catalytic activity/Vol] 58 Int._Unit/L Normal 21-98 [facility] Comment on above: Performed By: #### 1 3305760, 3229087, 0990815, 9725963, 4042785, 84723482, 2366098 ####[facility] [address] [place] [address] ALT No additional P-5'-P [Catalytic activity/Vol] 66 Int._Unit/L High 6-46 [facility] Comment on above: Performed By: #### 1 7035117, 3609778, 1020666, 1362327, 5875606, 71159695, 4934974 ####[address] [place] [address] AST [Catalytic activity/Vol] 81 Int._Unit/L High 5-43 [facility] Comment on above: Performed By: #### 1 2892918, 9032272, 3992117, 6718091, 2134384, 44096659, 4449866 ####[facility] [address] [place] [address] Bilirubin [Mass/Vol] 0.5 mg/dL Normal 0.0-1.1 [facility] Comment on above: Performed By: #### 1 4006904, 5535167, 2724824, 4901320, 0813801, 61340631, 1905720 ####[address] [place] [address] Bilirubin.direct [Mass/Vol] 0.1 mg/dL Normal 0.1-0.4 [facility] Comment on above: Performed By: #### 1 8329801, 7500389, 4093374, 5280974, 3069250, 95120413, 7962942 ####[facility] [address] [place] [address] Bilirubin.indirect [Mass or moles/Vol] 0.4 mg/dL Normal 0.1-0.9 [facility] Comment on above: Performed By: #### 1 5209767, 7995035, 9278222, 4568209, 8209393, 70649691, 6670224 ####[facility] [address] [place] [address] Globulin (S) [Mass/Vol] 2.9 g/dL Normal 1.4-4.0 [facility] Comment on above: Performed By: #### 1 0895224, 8630835, 7261873, 6774909, 8426870, 02882980, 8214571 ####[facility] [address] [place] [address] Protein [Mass/Vol] 6.7 g/dL Normal 6.0-7.8 [facility] [facility] Comment on above: Performed By: #### 1 [id number], 0244762, 5146452, 0070451, 4762899, 55791069, 8772544 ####[facility] [address] [place] [address] [id number] 07-03-2023 HbA1c (Bld) [Mass fraction] 5.5 % Normal <=5.9 [facility] Comment on above: Performed By: #### 2 070417, 26754300, 6694445, 9612202, 7024810, 6911158 #### [facility] [address] [place] [address] Interdisciplinary Note - Tico e Manageron 07-03-2023 Interdisciplinary Note - Driver License Agent CRM to room to discuss DC planning. [...] needs for HH, PM or DME at [place]. Patient was provided CRM contact, cortez board updated. Anticipated DC TBD. CRM following Normal [facility] Comment on above: Result Comment: Elec tronically Signed By: Brigitte Nazario\.br\Date and Time Signed: 07/03/23 13:05 EST Lipid Panelon 07-03-2023 Cholesterol [Mass/Vol] 145 mg/dL Normal 120-200 [facility] Comment on above: Performed By: #### 2 918192, 83620334, 4528579, 0754101, 6839380, 8722040 #### [facility] [address] [place] [address] Cholesterol in HDL [Mass/Vol] 43 mg/dL Invalid Interpretation Code [facility] Comment on above: Result Comment: HDL > or equal to 60 mg/dL: Low cardiovascular risk HDL < 40 mg/dL : High cardiovascular risk Performed By: #### 2 914787, 64839264, 2407564, 6622276, 5898923, 0278034 #### [facility] [address] [place] [address] Cholesterol in LDL [Mass/Vol] 99 mg/dL Normal <=129 [facility] Comment on above: Performed By: #### 2 245854, 43856032, 4684463, 1286109, 1563292, 6880130 #### [facility] [address] [place] [address] Cholesterol in VLDL [Mass/Vol] 17 mg/dL Normal 7-40 [facility] Comment on above: Performed By: #### 2 796632, 34623790, 0238672, 6261149, 8375175, 3075946 #### [facility] [address] [place] [address] Triglyceride [Mass/Vol] 85 mg/dL Normal <=149 [facility] Comment on above: Performed By: #### 2 344793, 31039791, 1388755, 2855761, 2963998, 1903394 #### [facility] [address] [place] [address] Magnesiumon 07-03-2023 Magnesium [Mass/Vol] 2.0 mg/dL Normal 1.3-2.4 [facility] Comment on above: Performed By: #### 1 5951721, 9423517, 9015819, 8721203, 3559762, 53020743, 8560164 ####[facility] [address] [place] [address] Message from Medicareon 06-15 Message from Medicare [id number]# 1.00TIFF Normal [facility] Monitor Recordon 07-03-2023 Monitor Record [id number]# 1.00TIFF Normal [facility] Monitor Record [id number]# 1.00TIFF Normal [facility] Monitor Record [id number]# 1.00TIFF Normal [facility] Progress Note-Physicianon Progress Note-Physician Assessment/Plan 73-year-old [...] Complete [facility] Hospital Care/Day Moderate 35 Minutes 96084 2. Elevated troponin (R79.89: Other specified abnormal findings of blood chemistry) Secondary to type II non-ST segment elevation myocardial infarction from above. Echocardiogram ordered. Cardiology consult pending. Continue on aspirin. Ordered: Echo Transthoracic Complete [facility] Hospital Care/Day Moderate 35 Minutes 74744 3. Urinary hesitancy (R39.11: Hesitancy of micturition) Secondary to urethral stricture. Patient is status post Robles catheter placement for urinary retention. She will follow-up with urologist as outpatient. Ordered: [facility] Hospital Care/Day Moderate 35 Minutes 93452 4. Constipation (K59.00: Constipation, unspecified) Started patient on MiraLAX and lactulose. Ordered: lactulose, 20 gram = 30 mL, Syrup, Oral, Once, Stop date 07/03/23 12:00:00 EST, Routine, Start date 07/03/23 12:00:00 EST, 07/03/23 12:00:00 EST polyethylene glycol 3350, 17 gram = 1 EA, Powder-Recon, Oral, Daily, Routine, Start date 07/03/23 12:00:00 EST, 07/03/23 12:00:00 EST [facility] Hospital Care/Day Moderate 35 Minutes 07585 5. Other urethral stricture, female (N35.82: Other urethral stricture, female) Resulting in urinary retention. Patient is status post Robles catheter during this admission. Gets dilation of the ureter every 6 months. Urology consult pending. 6. On deep vein thrombosis (DVT) prophylaxis (Z79.899: Other care home (current) drug therapy) Lovenox. Disposition: Pending echocardiogram, cardiology and urology consult. I discussed the diagnosis and plan of care with the patient at the bedside. Moderate level of MDM based on addressing above issues. This documentation was transcribed using voice recognition software. Several attempts were made to ensure accuracy. However inadvertent computerized transition of care specialist errors may be present. Nahid Serrato. Hospitalist. [...] 22:10:00) Lymph Auto: 15.3 % (07/02/23 22:10:00) [place] Auto: 7.7 % (07/02/23 22:10:00) Eos Auto: 0 % (07/02/23 22:10:00) Baso (more content not included)... Normal [facility] Comment on above: Result Comment: Elec tronically Signed By: JAZMÍN MCMAHON, Nahid\.br\Date and Time Signed: 07/03/23 10:57 EST TSH With T4fr Reflexon 07-03 TSH Qn 3.83 m[IU]/L Normal 0.34-5.60 [facility] Comment on above: Performed By: #### 2 519755, 30013060, 6507073, 3495048, 2899983, 6470384 #### [facility] [address] [place] [address] Troponinon 07-03-2023 Troponin I.cardiac [Mass/Vol] 27.10 pg/mL Normal 10.10-27.10 [facility] Comment on above: Result Comment: The 95% CI (Confidence Interval) PPV (Positive Predictive Value) for myocardial infarction in females is 38 pg/mL, in males 51 pg/mL. The results should be used in conjunction with clinical conditions of myocardial infarction. (Access High Sensitivity Troponin I Instructions For Use, [employer], March 2018) Performed By: #### 2 281256, 78373130, 6053465, 7321449, 9549292, 5466212 #### [facility] [address] [place] [address] Troponin 0 Hr.on 07-03-2023 Troponin I.cardiac [Mass/Vol] 27.30 pg/mL High 10.10-27.10 [facility] Comment on above: Result Comment: The 95% CI (Confidence Interval) PPV (Positive Predictive Value) for myocardial infarction in females is 38 pg/mL, in males 51 pg/mL. The results should be used in conjunction with clinical conditions of myocardial infarction. (Access High Sensitivity Troponin I Instructions For Use, [employer], March 2018) Performed By: #### 1 1376479, 2315444, 7359985, 1452522, 8578007, 81956504, 2369667 ####[facility] [address] [place] [address] Troponin 3 Hr.Ordered By: klinify SYSTEM on 07-03-2023 Troponin I.cardiac [Mass/Vol] 27.70 pg/mL High 10.10-27.10 [facility] Comment on above: Interpretive Data: T he 95% CI (Confidence Interval) PPV (Positive Predictive Value) for myocardial infarction in females is 38 pg/mL, in males 51 pg/mL. The results should be used in conjunction with clinical conditions of myocardial infarction. ([employer] High Sensitivity Troponin I Instructions For Use, [employer], March 2018) Result Comment: The 95% CI (Confidence Interval) PPV (Positive Predictive Value) for myocardial infarction in females is 38 pg/mL, in males 51 pg/mL. The results should be used in conjunction with clinical conditions of myocardial infarction. ([employer] High Sensitivity Troponin I Instructions For Use, [employer], March 2018) Performed By: #### 2 623231, 83400039, 1759357, 4750348, 7276210, 1380867 #### [facility] [address] [place] [address] XR Chest Single Viewon 07-03 XR Chest [...] mGy = na DAP = na Normal [facility] Auto Diffon 07-02-2023 Basophils/100 WBC (Bld) 0.3 % Normal 0.0-2.0 [facility] Comment on above: Order Comment: Order Added by Discern Expert. Performed By: #### 1 9945158, 6943714, 6121731, 5049591, 5098319, 53664678, 0712031 ####[address] [place] [address] Basophils/Leukocytes Auto (Bld) [Pure # fraction] 0.0 E9/L Normal 0.0-0.2 [facility] Comment on above: Order Comment: Order Added by Discern Expert. Performed By: #### 1 7240199, 3083483, 5818346, 8276197, 3464762, 17603887, 5383316 ####[address] [place] [address] Eosinophils/100 WBC (Bld) 0.0 % Normal 0.0-8.0 [facility] Comment on above: Order Comment: Order Added by Discern Expert. Performed By: #### 1 0305769, 9480599, 1545323, 6239694, 3047342, 36153406, 1712525 ####[address] [address] Eosinophils/Leukocyte s Auto (Bld) [Pure # fraction] 0.0 E9/L Normal 0.0-0.5 [facility] Comment on above: Order Comment: Order Added by Discern Expert. Performed By: #### 1 7164092, 2972255, 9561918, 0799366, 2352616, 76285192, 0777783 ####[address] [address] Lymphocytes/100 WBC (Bld) 15.3 % Normal 14.0-50.0 [facility] Comment on above: Order Comment: Order Added by Discern Expert. Performed By: #### 1 1950493, 8625741, 9142888, 5262935, 3552024, 26850579, 8934522 ####[address] [place] [address] Lymphocytes/Leukocyte s Auto (Bld) [Pure # fraction] 0.9 E9/L Low 1.0-4.0 [facility] Comment on above: Order Comment: Order Added by Discern Expert. Performed By: #### 1 9863554, 6516883, 4092775, 2190421, 4641948, 14466835, 4930268 ####[facility] [address] [place] [address] Monocytes/100 WBC (Bld) 7.7 % Normal 4.0-14.0 [facility] Comment on above: Order Comment: Order Added by Discern Expert. Performed By: #### 1 0849653, 0126469, 8550242, 2819281, 8276948, 50086733, 5816903 ####[address] [place] [address] Monocytes/Leukocytes Auto (Bld) [Pure # fraction] 0.5 E9/L Normal 0.2-1.0 [facility] Comment on above: Order Comment: Order Added by Discern Expert. Performed By: #### 1 4407709, 1353234, 6197778, 8684796, 3840662, 57444878, 3461443 ####[address] [place] [address] Neutrophils/100 WBC (Bld) 76.7 % High 36.0-75.0 [facility] Comment on above: Order Comment: Order Added by Discern Expert. Performed By: #### 1 9251694, 5109455, 3906745, 6136756, 7418736, 99097324, 5846210 ####[address] [place] [address] Neutrophils/Leukocyte s Auto (Bld) [Pure # fraction] 4.7 E9/L Normal 2.0-7.5 [facility] Comment on above: Order Comment: Order Added by Discern Expert. Performed By: #### 1 0161724, 4133835, 1879875, 2355014, 2056262, 36987870, 1503266 ####[address] [place] [address] BMPon 07-02-2023 Creatinine [Mass/Vol] 1.0 mg/dL Normal 0.5-1.3 [facility] Comment on above: Performed By: #### 1 0021088, 5208925, 4994696, 7495912, 5257810, 28153328, 4187216 ####[facility] [address] [place] [address] Urea nitrogen [Mass/Vol] 13 mg/dL Normal 5-21 [facility] Comment on above: Performed By: #### 1 1245175, 4944738, 0634730, 5563309, 5444416, 85159378, 5898435 ####[facility] [address] [place] [address] Urea nitrogen/Creatinine [Mass ratio] 13 No Units Normal 10-20 [facility] Comment on above: Performed By: #### 1 9899730, 0191806, 8575679, 2890634, 7810321, 44843590, 3769446 ####[facility] [address] [place] [address] Anion gap [Moles/Vol] 13 mmol/L Normal 6-16 [facility] Comment on above: Performed By: #### 1 4134102, 7150909, 9017330, 1094590, 3904843, 22180357, 9441111 ####[facility] [address] [place] [address] Calcium [Mass/Vol] 9.1 mg/dL Normal 8.9-11.1 [facility] Comment on above: Performed By: #### 1 4608152, 7720212, 9876259, 4277298, 0548675, 45029468, 7471360 ####[facility] [address] [place] [address] Chloride [Moles/Vol] 100 mmol/L Low 101-111 [facility] Comment on above: Performed By: #### 1 9832436, 2273813, 0374559, 6077855, 7475309, 91830226, 8347664 ####[facility] [address] [place] [address] CO2 [Moles/Vol] 24 mmol/L Normal 21-31 [facility] Comment on above: Performed By: #### 1 3261408, 5581579, 8884479, 3578184, 0495391, 44180095, 8071156 ####[facility] [address] [place] [address] Glucose [Mass/Vol] 129 mg/dL Normal 55-199 [facility] Comment on above: Result Comment: If t his glucose result represents a fasting glucose, interpretation should refer to the following reference range: 55-99 mg/dL Performed By: #### 1 7599262, 1381694, 1673518, 4988287, 4610479, 61571282, 6394593 ####[facility] [address] [place] [address] Potassium [Moles/Vol] 3.8 mmol/L Normal 3.5-5.3 [facility] Comment on above: Performed By: #### 1 5379390, 7403690, 8044749, 2954099, 4915491, 85275895, 5746845 ####[facility] [address] [place] [address] Sodium [Moles/Vol] 133 mmol/L Low 135-145 [facility] Comment on above: Performed By: #### 1 4354610, 5649629, 0361431, 1061787, 0013461, 64657169, 0461690 ####[facility] [address] [place] [address] CBC w/ Auto Diffon 3 Erythrocyte distribution width (RBC) [Ratio] 13.5 % Normal 10.9-14.2 [facility] Comment on above: Performed By: #### 1 8614920, 7041780, 6674682, 3931216, 2116661, 65771744, 1945264 #### [facility] [address] [place] [address] Hematocrit (Bld) [Volume fraction] 38.5 % Normal 34.0-46.0 [facility] Comment on above: Performed By: #### 1 4571212, 0935987, 4782442, 1744624, 2341108, 79010852, 6540966 #### [facility] [address] [place] [address] Hemoglobin (Bld) [Mass/Vol] 12.7 g/dL Normal 12.0-16.0 [facility] Comment on above: Performed By: #### 1 3074369, 6924092, 1116958, 8884730, 5974666, 94303555, 1706362 #### [facility] [address] [place] [address] MCH (RBC) [Entitic mass] 29.7 pg Normal 27.0-34.0 [facility] Comment on above: Performed By: #### 1 8527313, 2071426, 1881098, 9335836, 0372671, 45795061, 8915862 #### [facility] [address] [place] [address] MCHC (RBC) [Mass/Vol] 32.9 g/dL Normal 31.4-36.0 [facility] Comment on above: Performed By: #### 1 3177522, 3615471, 4479210, 0941613, 2717894, 15240095, 0875251 #### [facility] [address] [place] [address] MCV (RBC) [Entitic vol] 90.3 fL Normal 80.0-100.0 [facility] Comment on above: Performed By: #### 1 1064316, 3259744, 4152529, 0007630, 2080779, 00305849, 6456855 #### [facility] [address] [place] [address] Platelet mean volume (Bld) [Entitic vol] 9.1 fL Normal 6.4-10.8 [facility] Comment on above: Performed By: #### 1 3134464, 7210871, 3593333, 2090735, 7990714, 48520028, 3238342 #### [facility] [address] [place] [address] Platelets (Bld) [#/Vol] 183.0 E9/L Normal 150.0-500.0 [facility] Comment on above: Performed By: #### 1 1149516, 3059199, 0793876, 4227130, 6375435, 94184893, 5630168 #### [facility] [address] [place] [address] RBC (Bld) [#/Vol] 4.3 E12/L Normal 4.3-5.9 [facility] Comment on above: Performed By: #### 1 9802372, 4610432, 6172031, 1317439, 8350485, 92638336, 1525760 #### [facility] [address] [place] [address] WBC corrected for nucl RBC Auto (Bld) [#/Vol] 6.2 E9/L Normal 4.0-11.0 [facility] Comment on above: Performed By: #### 1 3774262, 1328965, 1038817, 8040170, 5952879, 58530587, 4609159 #### [facility] [address] [place] [address] CHEMISTRYOrdered By: SYSTEM SYSTEM on 07-02-2023 Albumin [...] 59 mL/min/1.73 m2 Normal >=59mL/min/1 .73 m2 [facility] Chem S Comment on above: Interpretive Data: [...] 13 mg/dL Normal 5 - 21 mg/dL [facility] Urea nitrogen/Creatinine [Mass ratio] 13 mg/mg Normal 10 - 20 [facility] COAGULATIONOrdered By: Lan Eastman on 07-02-2023 aPTT Coag (PPP) [Time] 30.2 s Normal 25.1 - 36.5 second(s) [facility] Auto Coag Comment on above: Interpretive Data: [...] the same coagulation reagent and instrumentation as [facility]. Currently there are no coagulation studies available worldwide for children to 14 days, and no normal ranges. Heparin therapeutic range (represented by Anti-Factor Xa activity of 0.2 - 0.4 U/mL) corresponds to PTT of 56.6 - 109.0 sec. INR Coag (PPP) [Relative time] 1.2 {INR} Invalid Interpretation Code [facility] Auto Coag Comment on above: Interpretive Data: I NR results are specifically intended to assess patients stabilized on long-term Anticoagulation therapy suggested INR s Less Intensive Anticoagulation 2.0 3.0 Conventional Range 3.0 4.5 PT Coag (PPP) [Time] 13.2 s High 9.4 - 1 2.5 second(s) [facility] Auto Coag Comment on above: Interpretive Data: [...] the same coagulation reagent and instrumentation as [facility]. Currently there are no coagulation studies available worldwide for children to 14 days, and no normal ranges. Consent for Treatmenton 06-14 Consent for Treatment [id number] .00TIFF Normal [facility] HEMATOLOGYOrdered By: SYSTEM SYSTEM on 07-02-2023 [...] Coag (PPP) [Time] 30.2 second(s) Normal 25.1-36.5 [facility] Comment on above: Result Comment: Para [...] the same coagulation reagent and instrumentation as [facility]. Currently there are no coagulation studies available worldwide for children to 14 days, and no normal ranges. Heparin therapeutic range (represented by Anti-Factor Xa activity of 0.2 - 0.4 U/mL) corresponds to PTT of 56.6 - 109.0 sec. Performed By: #### 2 517175, 22037710, 4929510, 9924081, 4306594, 4299961 #### [facility] [address] [place] [address] INR Coag (PPP) [Relative time] 1.2 {INR} Invalid Interpretation Code [facility] Comment on above: Result Comment: INR results are specifically intended to assess patients stabilized on long-term Anticoagulation therapy suggested INR?s ?Less Intensive Anticoagulation? 2.0 ? 3.0 Conventional Range 3.0 ? 4.5 Performed By: #### 2 746842, 72229464, 6541057, 5244149, 2434210, 2467003 #### [facility] [address] [place] [address] PT Coag (PPP) [Time] 13.2 second(s) High 9.4-12.5 [facility] Comment on above: Result Comment: 15 [...] the same coagulation reagent and instrumentation as [facility]. Currently there are no coagulation studies available worldwide for children to 14 days, and no normal ranges. Performed By: #### 2 658966, 66408804, 9480534, 3284098, 7403793, 1226026 #### [facility] [address] [place] [address] UA With Cult Reflexon 2022 Bacteria LM Ql (Urine sed) TRACE Normal Trace [facility] Comment on above: Order Comment: Urina ry Catheter Insertion triggered Urinalysis With Culture Reflex order by discern. Performed By: #### 2 630220, 47038904, 1439273, 8859074, 6680947, 5096657 #### [facility] [address] [place] [address] Bilirubin Ql (U) Negative Normal Negative [facility] Comment on above: Order Comment: Urina ry Catheter Insertion triggered Urinalysis With Culture Reflex order by discern. Performed By: #### 2 181325, 08749995, 7527905, 1058822, 0590849, 4235701 #### [facility] [address] [place] [address] Clarity (U) CLEAR Normal Clear [facility] Comment on above: Order Comment: Urina ry Catheter Insertion triggered Urinalysis With Culture Reflex order by discern. Performed By: #### 2 904574, 14844693, 8918674, 4311622, 1615227, 9585856 #### [facility] [address] [place] [address] Color (U) YELLOW Normal Yellow [facility] Comment on above: Order Comment: Urina ry Catheter Insertion triggered Urinalysis With Culture Reflex order by discern. Performed By: #### 2 891564, 62873892, 0418968, 1629145, 9184058, 5835292 #### [facility] [address] [place] [address] Epithelial cells.squamous LM.HPF (Urine sed) [#/Area] 9-10 Normal 0-2 [facility] Comment on above: Order Comment: Urina ry Catheter Insertion triggered Urinalysis With Culture Reflex order by discern. Performed By: #### 2 150256, 21120156, 9771492, 1101910, 8299018, 9862889 #### [facility] [address] [place] [address] Glucose Test strip (U) [Mass/Vol] Negative Normal Negative [facility] Comment on above: Order Comment: Urina ry Catheter Insertion triggered Urinalysis With Culture Reflex order by discern. Performed By: #### 2 558035, 74057475, 5181007, 4693911, 8110772, 8308656 #### [facility] [address] [place] [address] Hemoglobin Ql (U) TRACE Abnormal Negative [facility] Comment on above: Order Comment: Urina ry Catheter Insertion triggered Urinalysis With Culture Reflex order by discern. Performed By: #### 2 367666, 54008969, 2765732, 3339928, 3754039, 0332687 #### [facility] [address] [place] [address] Ketones (U) [Mass/Vol] TRACE Invalid Interpretation Code Negative [facility] Comment on above: Order Comment: Urina ry Catheter Insertion triggered Urinalysis With Culture Reflex order by discern. Performed By: #### 2 666990, 65797087, 6316498, 0055003, 1094706, 2794707 #### [facility] [address] [place] [address] [place].plasma/Lithiu m.RBC (Bld) [Mass ratio] 0-3 Normal 0-3 [facility] Comment on above: Order Comment: Urina ry Catheter Insertion triggered Urinalysis With Culture Reflex order by discern. Performed By: #### 2 353406, 48344925, 7980787, 9301642, 8901114, 3077312 #### [facility] [address] [place] [address] Mucus Ql (Urine sed) TRACE Normal [facility] Comment on above: Order Comment: Urina ry Catheter Insertion triggered Urinalysis With Culture Reflex order by discern. Performed By: #### 2 133184, 07712071, 2915473, 2946303, 0722212, 4390360 #### [facility] [address] [place] [address] Nitrite Ql (U) Negative Normal Negative [facility] Comment on above: Order Comment: Urina ry Catheter Insertion triggered Urinalysis With Culture Reflex order by discern. Performed By: #### 2 867343, 29648613, 0051589, 5518317, 7640862, 6923744 #### [facility] [address] [place] [address] pH (U) 5.5 [pH] Invalid Interpretation Code 5.0-9.0 [facility] Comment on above: Order Comment: Urina ry Catheter Insertion triggered Urinalysis With Culture Reflex order by discern. Performed By: #### 2 225890, 57118860, 7876076, 4590337, 8550684, 6797779 #### [facility] [address] [place] [address] Protein (U) [Mass/Vol] Negative Normal Negative [facility] Comment on above: Order Comment: Urina ry Catheter Insertion triggered Urinalysis With Culture Reflex order by discern. Performed By: #### 2 473257, 43150332, 7460718, 6149608, 1376102, 6164201 #### [facility] [address] [place] [address] Specific gravity (U) [Rel density] 1.025 Invalid Interpretation Code 1.005-1.030 [facility] Comment on above: Order Comment: Urina ry Catheter Insertion triggered Urinalysis With Culture Reflex order by discern. Performed By: #### 2 257609, 89186639, 3071707, 9790138, 1974910, 9071518 #### [facility] [address] [place] [address] Type of Urine collection method Robles Normal [facility] Comment on above: Order Comment: Urina ry Catheter Insertion triggered Urinalysis With Culture Reflex order by discern. Performed By: #### 2 271861, 49413540, 2512060, 9682293, 3084723, 5384564 #### [facility] [address] [place] [address] Urobilinogen Qn (U) 0.2 {Judith'U}/dL Normal 0.0-1.0 [facility] Comment on above: Order Comment: Urina ry Catheter Insertion triggered Urinalysis With Culture Reflex order by discern. Performed By: #### 2 181556, 75724698, 3047983, 8418158, 5697690, 2982565 #### [facility] [address] [place] [address] WBC Auto Ql (U) Negative Normal Negative [facility] Comment on above: Order Comment: Urina ry Catheter Insertion triggered Urinalysis With Culture Reflex order by discern. Performed By: #### 2 568670, 47782081, 3373041, 1333136, 5204950, 4553455 #### [facility] [address] [place] [address] WBC LM.HPF (Urine sed) [#/Area] 0-5 Normal 0-5 [facility] Comment on above: Order Comment: Urina ry Catheter Insertion triggered Urinalysis With Culture Reflex order by discern. Performed By: #### 2 730749, 84203971, 1492024, 5220557, 5444676, 2226658 #### [facility] [address] [place] [address] URINALYSISOrdered By: Lan Eastman on 07-02-2023 Bacteria [...] Interpretation Code Negative [facility] UA Auto SS [place].plasma/Lithiu m.RBC (Bld) [Mass ratio] 0-3 /HPF Normal [...] [facility] UA Auto SS Urobilinogen Qn (U) 0.9580531 {Judith'U}/dL Normal 0.0 - 1.0 EU/dL [facility] UA Auto SS WBC Auto Ql (U) Negative (07/02/23 10:18 PM) Normal Negative [facility] UA Auto SS WBC LM.HPF (Urine sed) [#/Area] 0-5 /HPF Normal 0-5/HPF [facility] UA Auto SS eGFRon 07-02-2023 GFR/1.73 sq M.predicted among non-blacks MDRD (S/P/Bld) [Vol rate/Area] 59 mL/min/1.73 m2 Normal >=59 [facility] Comment on above: Order Comment: Order added by Discern Expert. Result Comment: Instantizer Operator luis kidney disease could be indicated at eGFR's of less than 60 mL/min/1.73m2. Kidney failure is indicated at less than 15 mL/min/1.73m2. Performed By: #### 1 [id number], 1522638, 2388986, 8644922, 0268580, 10359505, 1949880 ####[facility] [address] [place] [address] CT Abdomen/Pelvis w/o Contra ston 07-01-2023 CT [...] Oral contrast amount in ml's: 0 Normal [facility] Discharge Instructionson Discharge Instructions [id number] .[id number] Normal [facility] ED Clinical Summaryon 2022 ED Clinical Summary [address] [address] ED Clinical Summary Person Information Name: HARJIT ASENCIO/New_Jose Age: 73 Years : 1950 Sex: Female Language: Qatari PCP: Peggy Nazario MD Marital Status: Visit [...] 07/01/2023 00:37:46 07/01/2023 00:37:46 07/01/2023 00:37:46 ADDRESS: [address] [place] [address] [address] [facility] [id number] PHYS DOC NOTES: MEDICAL INFORMATION: Prescriptions Given: New Medications [id number], [address] [place], [place] [id number], [phone] dicyclomine (Bentyl 10 mg Cap) 1 Capsules [...] PATIENT EDUCATION INFORMATION: Instructions: Abdominal Pain, Adult, Aamk-di-Aktq Follow up: With: Address: When: Peggy Nazario [address] [place] [address] [place] [address] Business (1) In 3 days 07/04/2023 Comments: You can use the Bentyl, Zofran every 6 hours as needed for pain and nausea. Please follow-up with your primary care doctor next 2 to 3 days for further evaluation management. Please return to the ED for any new or worsening symptoms. DIAGNOSIS: Abdominal pain, acute Normal [facility] ED Note-Physicianon 07-01-20 ED Note-Physician Basic [...] and Complexity of Problems Differential Diagnosis: [] [facility] Data External documents reviewed: [] My [...] day(s), # 14 cap(s), Refills(s) 0, Pharmacy: [facility] #[id number], 165, cm, 06/30/23 19:37:00 EST, Height/Length Dosing, [...] q8hr, # 12 tab(s), Refills(s) 0, Pharmacy: [facility] #[id number], 165, cm, 06/30/23 19:37:00 EST, Height/Length Dosing, [...] Information Peggy Nazario In 3 days 07/04/[address] [address]- Business (1) Additional Instructions: You can use the Bentyl, Zofran every 6 hours as needed for pain and nausea. Please follow-up with your primary care doctor next 2 to 3 days for further evaluation management. Please return to the ED for any new or worsening symptoms. Patient Education Abdominal Pain, Adult, Akkd-xw-Pkfv Problem List/Past Medical History Ongoing acid reflux Acute ga (more content not included)... Normal [facility] Comment on above: Result Comment: Elec tronically Signed By: Koby Masterson DO\.br\Date and Time Signed: 07/01/23 01:03 [facility] ED Patient Education Noteon 07-01-2023 ED [...] these instructions at home: Medicines ? Take ossm-vug-kmecowj and prescription medicines only as told by [...] belly pain for any changes. ? Take wpqj-kir-fqwgffl and prescription medicines only as told by [...] provider. Document Revised: 12/09/2019 Document Reviewed: 12/09/2019 [employer] Patient Education ? 2022 [employer] Normal [facility] ED Patient Summaryon 023 ED Patient Summary [place] [address] Patient Discharge Instructions Person Information Name: HARJIT ASENCIO I Age: 73 Years Arrival Date: 06/30/2023 18:48:02 Discharge Diagnosis: Abdominal pain, acute Primary Care Physician: Peggy Nazario MD Provider Information Primary Provider: Koby Masterson DO Advanced Clerical Production Worker:None The exam and treatment you received in the Emergency Department were for an urgent problem and are not intended as complete care. It is important that you follow up with a doctor, nurse practitioner, or physician?s assistant baseball coach for ongoing care. If your symptoms become [...] Address: When: Peggy Nazario [address] [place] [address] Flotype (1) In 3 days 07/04/2023 Comments: You [...] provider. Patient Education Materials: Abdominal Pain, Adult, Ldtx-qx-Xmor A MESSAGE TO ALL PATIENTS REGARDING OPIOIDS PRESCRIPTION OPIOIDS: WHAT YOU NEED TO KNOW Prescription opioids can be used to help relieve fcegqzwi-ef-zgstbn pain and are often prescribed following a [...] to robert (more content not included)... Normal [facility] RAD - Preliminary Cat Scan R eporton 07-01-2023 RAD - Preliminary Cat Scan Report [id number] .[id number] Normal [facility] Auto Diffon 06-30-2023 Basophils/100 WBC (Bld) 0.8 % Normal 0.0-2.0 [facility] Comment on above: Order Comment: Order Added by Discern Expert. Performed By: #### 2 083452, 68687811, 9997648, 3216136, 0690370, 2469663 #### [facility] [address] [place] [address] Basophils/Leukocytes Auto (Bld) [Pure # fraction] 0.0 E9/L Normal 0.0-0.2 [facility] Comment on above: Order Comment: Order Added by Discern Expert. Performed By: #### 2 932499, 63025531, 1110255, 8404846, 5733493, 6063170 #### [facility] [address] [place] [address] Eosinophils/100 WBC (Bld) 0.2 % Normal 0.0-8.0 [facility] Comment on above: Order Comment: Order Added by Discern Expert. Performed By: #### 2 146801, 97931691, 6095338, 1425540, 4978964, 0544278 #### [facility] [address] [place] [address] Eosinophils/Leukocyte s Auto (Bld) [Pure # fraction] 0.0 E9/L Normal 0.0-0.5 [facility] Comment on above: Order Comment: Order Added by Valeria Expert. Performed By: #### 2 305074, 33518836, 0215713, 5077698, 6165020, 8884087 #### [facility] [address] [place] [address] Lymphocytes/100 WBC (Bld) 26.7 % Normal 14.0-50.0 [facility] Comment on above: Order Comment: Order Added by Valeria Expert. Performed By: #### 2 170789, 76568095, 3869714, 0127637, 5949264, 5170664 #### [facility] [address] [place] [address] Lymphocytes/Leukocyte s Auto (Bld) [Pure # fraction] 1.2 E9/L Normal 1.0-4.0 [facility] Comment on above: Order Comment: Order Added by Valeria Expert. Performed By: #### 2 651862, 84868307, 8721071, 2197832, 8542525, 8020738 #### [facility] [address] [place] [address] Monocytes/100 WBC (Bld) 9.8 % Normal 4.0-14.0 [facility] Comment on above: Order Comment: Order Added by Discern Expert. Performed By: #### 2 484363, 43805407, 3538901, 6869141, 7837073, 5435993 #### [facility] [address] [place] [address] Monocytes/Leukocytes Auto (Bld) [Pure # fraction] 0.4 E9/L Normal 0.2-1.0 [facility] Comment on above: Order Comment: Order Added by Discern Expert. Performed By: #### 2 788938, 37212704, 7396900, 9307094, 9954865, 8612846 #### [facility] [address] [place] [address] Neutrophils/100 WBC (Bld) 62.5 % Normal 36.0-75.0 [facility] Comment on above: Order Comment: Order Added by Discern Expert. Performed By: #### 2 839399, 60008174, 9454481, 2943013, 0039318, 0645120 #### [facility] [address] [place] [address] Neutrophils/Leukocyte s Auto (Bld) [Pure # fraction] 2.7 E9/L Normal 2.0-7.5 [facility] Comment on above: Order Comment: Order Added by Discern Expert. Performed By: #### 2 890483, 46051226, 5211290, 6204230, 7179630, 8401841 #### [facility] [address] [place] [address] BMPon 06-30-2023 Creatinine [Mass/Vol] 0.8 mg/dL Normal 0.5-1.3 [facility] Comment on above: Performed By: #### 2 990811, 49104963, 9990166, 3819981, 0754503, 7524335 #### [facility] [address] [place] [address] Urea nitrogen [Mass/Vol] 12 mg/dL Normal 5-21 [facility] Comment on above: Performed By: #### 2 193142, 98480224, 5131632, 6189322, 3681566, 7519452 #### [facility] [address] [place] [address] Urea nitrogen/Creatinine [Mass ratio] 15 No Units Normal 10-20 [facility] Comment on above: Performed By: #### 2 049662, 07940958, 2728626, 5735511, 9628882, 2846599 #### [facility] [address] [place] [address] Anion gap [Moles/Vol] 13 mmol/L Normal 6-16 [facility] Comment on above: Performed By: #### 2 690483, 43969561, 1161644, 0904901, 4375709, 9910935 #### [facility] [address] [place] [address] Calcium [Mass/Vol] 9.5 mg/dL Normal 8.9-11.1 [facility] Comment on above: Performed By: #### 2 130340, 36938495, 8331836, 3367160, 2706353, 7681088 #### [facility] [address] [place] [address] Chloride [Moles/Vol] 103 mmol/L Normal 101-111 [facility] Comment on above: Performed By: #### 2 146153, 47539818, 6034629, 7367560, 6970349, 5829947 #### [facility] [address] [place] [address] CO2 [Moles/Vol] 27 mmol/L Normal 21-31 [facility] Comment on above: Performed By: #### 2 065047, 65218598, 9628774, 7981555, 5874772, 7841872 #### [facility] [address] [place] [address] Glucose [Mass/Vol] 110 mg/dL Normal 55-199 [facility] Comment on above: Result Comment: If t his glucose result represents a fasting glucose, interpretation should refer to the following reference range: 55-99 mg/dL Performed By: #### 2 943517, 54451988, 1938009, 2877812, 4212456, 6534502 #### [facility] [address] [place] [address] Potassium [Moles/Vol] 4.1 mmol/L Normal 3.5-5.3 [facility] Comment on above: Performed By: #### 2 768556, 32231702, 5549153, 2829295, 1393330, 8870132 #### [facility] [address] [place] [address] Sodium [Moles/Vol] 139 mmol/L Normal 135-145 [facility] Comment on above: Performed By: #### 2 960894, 97878931, 6057376, 2596231, 1650843, 6567430 #### [facility] [address] [place] [address] CBC w/ Auto Diffon Erythrocyte distribution width (RBC) [Ratio] 13.7 % Normal 10.9-14.2 [facility] Comment on above: Performed By: #### 2 019421, 39857619, 4186703, 9893790, 9107727, 7330371 #### [facility] [address] [place] [address] Hematocrit (Bld) [Volume fraction] 38.0 % Normal 34.0-46.0 [facility] Comment on above: Performed By: #### 2 623317, 55646472, 7661923, 6726713, 8706082, 9789084 #### [facility] [address] [place] [address] Hemoglobin (Bld) [Mass/Vol] 12.5 g/dL Normal 12.0-16.0 [facility] Comment on above: Performed By: #### 2 918280, 88878082, 9280976, 9675519, 3589937, 7090394 #### [facility] [address] [place] [address] MCH (RBC) [Entitic mass] 29.9 pg Normal 27.0-34.0 [facility] Comment on above: Performed By: #### 2 111405, 96044555, 1648790, 2027520, 2311597, 0403068 #### [facility] [address] [place] [address] MCHC (RBC) [Mass/Vol] 32.9 g/dL Normal 31.4-36.0 [facility] Comment on above: Performed By: #### 2 510441, 86962710, 6025997, 0087661, 0990583, 2928110 #### [facility] [address] [place] [address] MCV (RBC) [Entitic vol] 90.9 fL Normal 80.0-100.0 [facility] Comment on above: Performed By: #### 2 412726, 45216102, 2696360, 2259382, 2444289, 0875130 #### [facility] [address] [place] [address] Platelet mean volume (Bld) [Entitic vol] 8.7 fL Normal 6.4-10.8 [facility] Comment on above: Performed By: #### 2 351795, 29568625, 6508046, 0251095, 1719326, 6520219 #### [facility] [address] [place] [address] Platelets (Bld) [#/Vol] 184.0 E9/L Normal 150.0-500.0 [facility] Comment on above: Performed By: #### 2 893676, 43637865, 6459816, 2080191, 1117948, 6059138 #### [facility] [address] [place] [address] RBC (Bld) [#/Vol] 4.2 E12/L Low 4.3-5.9 [facility] Comment on above: Performed By: #### 2 847013, 58324853, 8698865, 7764857, 5146691, 8427312 #### [facility] [address] [place] [address] WBC corrected for nucl RBC Auto (Bld) [#/Vol] 4.4 E9/L Normal 4.0-11.0 [facility] Comment on above: Performed By: #### 2 432495, 32920605, 1210644, 3559068, 0467198, 7268867 #### [facility] [address] [place] [address] CHEMISTRYOrdered By: SYSTEM SYSTEM on 06-30-2023 Albumin [...] 77 mL/min/1.73 m2 Normal >=59mL/min/1 .73 m2 [facility] Chem S Comment on above: Interpretive Data: [...] Treatmenton 06-14 Consent for Treatment [id number] .00TIFF [facility] Consent for Treatment [id number] .00TIFF [facility] HEMATOLOGYOrdered By: SYSTEM SYSTEM on [...] 4.4 E9/L Normal 4.0 - 11.0 E9/L [facility] HemeAutoSS Hep Func Panelon 06-30-2023 Bilirubin.indirect [Mass or moles/Vol] UTC Abnormal 0.1-0.9 [facility] Comment on above: Result Comment: Resu lt verified by Discern Rule. Performed result UTC (Unable to Calculate) was sent as an Alpha code due the inability to calculate a valid numeric value. Performed By: #### 2 457265, 45748318, 8845557, 9793362, 0354108, 6403384 #### [facility] [address] [place] [address] Albumin [Mass/Vol] 3.8 g/dL Normal 3.3-5.0 [facility] Comment on above: Performed By: #### 2 364898, 34805422, 4628191, 7196872, 2896312, 1811188 #### [facility] [address] [place] [address] Albumin/Globulin (S) [Mass conc ratio] 1.3 Normal 1.1-2.2 [facility] Comment on above: Performed By: #### 2 260348, 45252067, 8883780, 0403549, 1431960, 3825843 #### [facility] [address] [place] [address] ALP [Catalytic activity/Vol] 56 Int._Unit/L Normal 21-98 [facility] Comment on above: Performed By: #### 2 860899, 64055359, 0972339, 7413156, 0695733, 6411896 #### [facility] [address] [place] [address] ALT No additional P-5'-P [Catalytic activity/Vol] 50 Int._Unit/L High 6-46 [facility] Comment on above: Performed By: #### 2 598977, 94699544, 4210137, 8906139, 5416504, 8416334 #### [facility] [address] [place] [address] AST [Catalytic activity/Vol] 45 Int._Unit/L High 5-43 [facility] Comment on above: Performed By: #### 2 093764, 86756785, 7218501, 3984382, 8274586, 3748285 #### [facility] [address] [place] [address] Bilirubin [Mass/Vol] 0.5 mg/dL Normal 0.0-1.1 [facility] Comment on above: Performed By: #### 2 102731, 33553528, 4339895, 0764812, 9360702, 0113904 #### [facility] [address] [place] [address] Globulin (S) [Mass/Vol] 3.0 g/dL Normal 1.4-4.0 [facility] Comment on above: Performed By: #### 2 912570, 14911726, 1824147, 1575782, 0850627, 7559049 #### [facility] [address] [place] [address] Protein [Mass/Vol] 6.8 g/dL Normal 6.0-7.8 [facility] Comment on above: Performed By: #### 2 596955, 93962689, 2240497, 0331639, 5056665, 8593062 #### [facility] [address] [place] [address] Bilirubin.direct [Mass/Vol] mg/dL Normal 0.1-0.4 [facility] Comment on above: Performed By: #### 2 232671, 76565725, 5438141, 1676019, 2772214, 8881332 #### [facility] [address] [place] [address] Lipase Levelon 06-30-2023 Lipase [Catalytic activity/Vol] 31 U/L Normal 13-58 [facility] Comment on above: Performed By: #### 2 198922, 84757727, 1207496, 8960231, 4268221, 1761650 #### [facility] [address] [place] [address] UA With Cult Reflexon 2022 Bacteria LM Ql (Urine sed) TRACE Normal Trace [facility] Comment on above: Performed By: #### 2 374397, 27917622, 0135952, 7451669, 8328439, 8697079 #### [facility] [address] [place] [address] Bilirubin Ql (U) Negative Normal Negative [facility] Comment on above: Performed By: #### 2 342106, 41459130, 6144411, 6305300, 6504465, 0368929 #### [facility] [address] [place] [address] Clarity (U) CLEAR Normal Clear [facility] Comment on above: Performed By: #### 2 783783, 89652254, 4686485, 6577930, 0770906, 7648655 #### [facility] [address] [place] [address] Color (U) YELLOW Normal Yellow [facility] Comment on above: Performed By: #### 2 764847, 01656870, 6616659, 6504518, 2150483, 3979050 #### [facility] [address] [place] [address] Epithelial cells.squamous LM.HPF (Urine sed) [#/Area] 0-2 Normal 0-2 [facility] Comment on above: Performed By: #### 2 640089, 62600142, 8715561, 9109533, 7486561, 7786387 #### [facility] [address] [place] [address] Glucose Test strip (U) [Mass/Vol] Negative Normal Negative [facility] Comment on above: Performed By: #### 2 230772, 28450287, 3530980, 7319607, 9200619, 2731548 #### [facility] [address] [place] [address] Hemoglobin Ql (U) TRACE Abnormal Negative [facility] Comment on above: Performed By: #### 2 063708, 46861946, 1316055, 6947894, 1826052, 0273183 #### [facility] [address] [place] [address] Ketones (U) [Mass/Vol] Negative Normal Negative [facility] Comment on above: Performed By: #### 2 537987, 30295704, 6272849, 5776543, 0415218, 5360354 #### [facility] [address] [place] [address] [place].plasma/Lithiu m.RBC (Bld) [Mass ratio] 0-3 Normal 0-3 [facility] Comment on above: Performed By: #### 2 190228, 03382435, 4096509, 0582696, 6002808, 1412667 #### [facility] [address] [place] [address] Nitrite Ql (U) Negative Normal Negative [facility] Comment on above: Performed By: #### 2 661680, 57948497, 5690256, 6592107, 0777288, 3689588 #### [facility] [address] [place] [address] pH (U) 6.5 [pH] Invalid Interpretation Code 5.0-9.0 [facility] Comment on above: Performed By: #### 2 517597, 93140089, 8507060, 7853802, 1564020, 6216945 #### [facility] [address] [place] [address] Protein (U) [Mass/Vol] Negative Normal Negative [facility] Comment on above: Performed By: #### 2 526584, 17107954, 2876568, 4253200, 7729575, 3015929 #### [facility] [address] [place] [address] Specific gravity (U) [Rel density] <=1.005 Invalid Interpretation Code 1.005-1.030 [facility] Comment on above: Performed By: #### 2 022496, 88690052, 9566620, 8695128, 9115312, 9008892 #### [facility] [address] [place] [address] Type of Urine collection method Clean Catch Normal [facility] Comment on above: Performed By: #### 2 977995, 18150332, 3690755, 5642835, 2546778, 0893211 #### [facility] [address] [place] [address] Urobilinogen Qn (U) 0.2 {Judith'U}/dL Normal 0.0-1.0 [facility] Comment on above: Performed By: #### 2 628540, 62634199, 4190689, 2814900, 1751437, 1481554 #### [facility] [address] [place] [address] WBC Auto Ql (U) Negative Normal Negative [facility] Comment on above: Performed By: #### 2 069399, 23556416, 6038636, 8449987, 1989546, 4626380 #### [facility] [address] [place] [address] WBC LM.HPF (Urine sed) [#/Area] 0-5 Normal 0-5 [facility] Comment on above: Performed By: #### 2 066991, 35258104, 0878524, 2161833, 6787470, 8095590 #### [facility] [address] [place] [address] URINALYSISOrdered By: Brian Davis on 06-30-2023 Bacteria [...] PM) Normal Negative [facility] UA Auto SS [place].plasma/Lithiu m.RBC (Bld) [Mass ratio] 0-3 /HPF Normal [...] [facility] UA Auto SS Urobilinogen Qn (U) 0.8448119 {Judith'U}/dL Normal 0.0 - 1.0 EU/dL [facility] UA Auto SS WBC Auto Ql (U) Negative (06/30/23 8:00 PM) Normal Negative [facility] UA Auto SS WBC LM.HPF (Urine sed) [#/Area] 0-5 /HPF Normal 0-5/HPF [facility] UA Auto SS eGFRon 06-30-2023 GFR/1.73 sq M.predicted among non-blacks MDRD (S/P/Bld) [Vol rate/Area] 77 mL/min/1.73 m2 Normal >=59 [facility] Comment on above: Order Comment: Order added by Discern Expert. Result Comment: Instantizer Operator luis kidney disease could be indicated at eGFR's of less than 60 mL/min/1.73m2. Kidney failure is indicated at less than 15 mL/min/1.73m2. Performed By: #### 2 000630, 32891494, 5057894, 1593365, 7570540, 2814490 #### [facility] [address] [place] [address] URINALYSISOrdered By: Lan Eastman on 01-28-2023 Bilirubin [...] PM) Normal Negative [facility] UA Auto SS [place].plasma/Lithiu m.RBC (Bld) [Mass ratio] 0-3 /HPF Normal [...] [facility] UA Auto SS Urobilinogen Qn (U) 1.4189055 {Judith'U}/dL Normal 0.0 - 1.0 EU/dL [facility] UA Auto SS WBC Auto Ql (U) Negative (01/28/23 11:04 PM) Normal Negative [facility] UA Auto SS WBC LM.HPF (Urine sed) [#/Area] 0-5 /HPF Normal 0-5/HPF [facility] UA Auto SS Q - SARS CoV2 COVID 19 Ab Ig Clarence 08-20-2021 SARS-CoV-2 (COVID-19) Ab IA Qn 25.84 index High <1.00 [facility] [employer] Comment on above: Order Comment: [facility] performed at: Q, [facility], [address], [address] [place], [address], Food Storeroom Clerk: Ab Vincent MD [facility] Date/Time: [facility] [...] providers and patients using the following websites: [email or web address] Healthcare Providers: For additional information please refer to: http://education.[employer]/faq/DSY133 (This link is being provided for informational/educational purposes only.) This test has been authorized by the FDA under an Emergency Use Authorization (EUA) for use by authorized laboratories. The FDA authorized labeling is available on the [employer] website: [email or web address]. Performed By: #### [id number] #### [facility] Default [address] [place] [address] Reference Laboratory Testing Ordered By: [employer] on 08-12-2021 SARS-CoV-2 (COVID-19) RNA JORDAN+probe Ql (Resp) Not detected Invalid Interpretation Code Not Detected [facility] [place] [facility] Comment on above: Result Comment: This nucleic acid amplification test was developed and its performance characteristics determined by [employer].. Nucleic acid amplification tests include RT-PCR and [...] detected) result in this assay. Performed at: [address] [id number] PhD Emily Fraser Vital Signs Date Time Vital Sign Value Performing Clinician Mickieeliseo geon 04-07-2025 13:46-0400 Body height 160 cm Hannah Brian MD Work Phone: [facility] 04-07-2025 13:46-0400 Body mass index (BMI) [Ratio] 23.6 kg/m2 Hannah Brian MD Work Phone: [facility] 04-07-2025 13:46-0400 Body temperature 98.2 [degF] Hannah Brian MD Work Phone: [facility] 04-07-2025 13:46-0400 Body weight 60.42 kg Hannah Brian MD Work Phone: [facility] 04-07-2025 13:46-0400 Diastolic blood pressure 62 mm[Hg] Hannah Brian MD Work Phone: [facility] 04-07-2025 13:46-0400 Heart rate 68 /min Hannah Brian MD Work Phone: [facility] 04-07-2025 13:46-0400 SaO2% (BldA) [Mass fraction] 99 % Hannah Brian MD Work Phone: [facility] 04-07-2025 13:46-0400 Systolic blood pressure 128 mm[Hg] Hannah Brian MD Work Phone: [facility] 01-22-2025 13:56-0400 Body height 160 cm Hannah Brian MD Work Phone: [facility] 01-22-2025 13:56-0400 Body mass index (BMI) [Ratio] 23.91 kg/m2 Hannah Brian MD Work Phone: [facility] 01-22-2025 13:56-0400 Body temperature 98.01 [degF] Hannah Brian MD Work Phone: [facility] 01-22-2025 13:56-0400 Body weight 61.24 kg Hannah Brian MD Work Phone: [facility] 01-22-2025 13:56-0400 Diastolic blood pressure 60 mm[Hg] Hannah Brian MD Work Phone: [facility] 01-22-2025 13:56-0400 Heart rate 70 /min Hannah Brian MD Work Phone: [facility] 01-22-2025 13:56-0400 SaO2% (BldA) [Mass fraction] 99 % Hannah Brian MD Work Phone: [facility] 01-22-2025 13:56-0400 Systolic blood pressure 138 mm[Hg] Hannah Brian MD Work Phone: [facility] 01-07-2025 15:47-0400 Body height 160 cm Hannah Brian MD Work Phone: [facility] 01-07-2025 15:47-0400 Body mass index (BMI) [Ratio] 23.95 kg/m2 Hannah Brian MD Work Phone: [facility] 01-07-2025 15:47-0400 Body temperature 97.9 [degF] Hannah Brian MD Work Phone: [facility] 01-07-2025 15:47-0400 Body weight 61.33 kg Hannah Brian MD Work Phone: [facility] 01-07-2025 15:47-0400 Diastolic blood pressure 70 mm[Hg] Hannah Brian MD Work Phone: [facility] 01-07-2025 15:47-0400 Heart rate 70 /min Hannah Brian MD Work Phone: [facility] 01-07-2025 15:47-0400 SaO2% (BldA) [Mass fraction] 97 % Hannah Brian MD Work Phone: [facility] 01-07-2025 15:47-0400 Systolic blood pressure 120 mm[Hg] Hannah Brian MD Work Phone: [facility] 12-17-2024 15:23-0400 Body height 160 cm Hannah Brian MD Work Phone: [facility] 12-17-2024 15:23-0400 Body mass index (BMI) [Ratio] 24.09 kg/m2 Hannah Brian MD Work Phone: [facility] 12-17-2024 15:23-0400 Body temperature 97.5 [degF] Hannah Brian MD Work Phone: [facility] 12-17-2024 15:23-0400 Body weight 61.69 kg Hannah Brian MD Work Phone: [facility] 12-17-2024 15:23-0400 Diastolic blood pressure 80 mm[Hg] Hannah Brian MD Work Phone: [facility] 12-17-2024 15:23-0400 Heart rate 74 /min Hannah Brian MD Work Phone: [facility] 12-17-2024 15:23-0400 SaO2% (BldA) [Mass fraction] 99 % Hannah Brian MD Work Phone: [facility] 12-17-2024 15:23-0400 Systolic blood pressure 128 mm[Hg] Hannah Brian MD Work Phone: [facility] 11-25-2024 11:32-0400 Body height 160 cm Hannah Brian MD Work Phone: [facility] 11-25-2024 11:32-0400 Body mass index (BMI) [Ratio] 24.45 kg/m2 Hannah Brian MD Work Phone: [facility] 11-25-2024 11:32-0400 Body temperature 97.81 [degF] Hannah Brian MD Work Phone: [facility] 11-25-2024 11:32-0400 Body weight 62.6 kg Hannah Brian MD Work Phone: [facility] 11-25-2024 11:32-0400 Diastolic blood pressure 60 mm[Hg] Hannah Brian MD Work Phone: [facility] 11-25-2024 11:32-0400 Heart rate 75 /min Hannah Brian MD Work Phone: [facility] 11-25-2024 11:32-0400 SaO2% (BldA) [Mass fraction] 96 % Hannah Brian MD Work Phone: [facility] 11-25-2024 11:32-0400 Systolic blood pressure 124 mm[Hg] Hannah Brian MD Work Phone: [facility] 11-18-2024 11:43-0400 Body height 160 cm Hannah Brian MD Work Phone: [facility] 11-18-2024 11:43-0400 Body mass index (BMI) [Ratio] 23.91 kg/m2 Hannah Brian MD Work Phone: [facility] 11-18-2024 11:43-0400 Body temperature 97.81 [degF] Hannah Brian MD Work Phone: [facility] 11-18-2024 11:43-0400 Body weight 61.24 kg Hannah Brian MD Work Phone: [facility] 11-18-2024 11:43-0400 Diastolic blood pressure 60 mm[Hg] Hannah Brian MD Work Phone: [facility] 11-18-2024 11:43-0400 Heart rate 70 /min Hannah Brian MD Work Phone: [facility] 11-18-2024 11:43-0400 SaO2% (BldA) [Mass fraction] 98 % Hannah Brian MD Work Phone: [facility] 11-18-2024 11:43-0400 Systolic blood pressure 120 mm[Hg] Hannah Brian MD Work Phone: [facility] 10-08-2024 12:58-0500 Body height 160 cm Sherlyn Shine PA Work Phone: [facility] 10-08-2024 12:58-0500 Body mass index (BMI) [Ratio] 23.91 kg/m2 Sherlyn Shine PA Work Phone: [facility] 10-08-2024 12:58-0500 Body temperature 97.9 [degF] Sherlyn Shine PA Work Phone: [facility] 10-08-2024 12:58-0500 Body weight 61.24 kg Sherlyn Shine PA Work Phone: [facility] 10-08-2024 12:58-0500 Diastolic blood pressure 70 mm[Hg] Sherlyn Shine PA Work Phone: [facility] 10-08-2024 12:58-0500 Heart rate 70 /min Sherlyn Shine PA Work Phone: [facility] 10-08-2024 12:58-0500 SaO2% (BldA) [Mass fraction] 97 % Sherlyn Shine PA Work Phone: [facility] 10-08-2024 12:58-0500 Systolic blood pressure 120 mm[Hg] Sherlyn Shine PA Work Phone: [facility] 08-12-2024 16:09-0500 Body height 161.3 cm Rickie Aviles EMERGENCY MANAGEMENT SYSTEM DIRECTOR Work Phone: [facility] 08-12-2024 16:09-0500 Body mass index (BMI) [Ratio] 22.39 kg/m2 Rickie Aviles EMERGENCY MANAGEMENT SYSTEM DIRECTOR Work Phone: [facility] 08-12-2024 16:09-0500 Body temperature 97.7 [degF] Rickie Aviles EMERGENCY MANAGEMENT SYSTEM DIRECTOR Work Phone: [facility] 08-12-2024 16:09-0500 Body weight 58.24 kg Rickie Kumariller EMERGENCY MANAGEMENT SYSTEM DIRECTOR Work Phone: [facility] 08-12-2024 16:09-0500 Diastolic blood pressure 70 mm[Hg] Rickie Kumariller EMERGENCY MANAGEMENT SYSTEM DIRECTOR Work Phone: [facility] 08-12-2024 16:09-0500 Heart rate 73 /min Rickie Kumariller EMERGENCY MANAGEMENT SYSTEM DIRECTOR Work Phone: [facility] 08-12-2024 16:09-0500 SaO2% (BldA) [Mass fraction] 99 % Rickie Kumariller EMERGENCY MANAGEMENT SYSTEM DIRECTOR Work Phone: [facility] 08-12-2024 16:09-0500 Systolic blood pressure 124 mm[Hg] Rickie Kumariller EMERGENCY MANAGEMENT SYSTEM DIRECTOR Work Phone: [facility] 08-05-2024 15:19-0500 Body height 161.3 cm Stephan Boo DO Work Phone: [facility] 08-05-2024 15:19-0500 Body mass index (BMI) [Ratio] 21.8 kg/m2 Stephan Boo DO Work Phone: [facility] 08-05-2024 15:19-0500 Body weight 56.7 kg Stephan Boo DO Work Phone: [facility] 08-05-2024 15:19-0500 Diastolic blood pressure 84 mm[Hg] Stephan Boo DO Work Phone: [facility] 08-05-2024 15:19-0500 Systolic blood pressure 130 mm[Hg] Stephan Boo DO Work Phone: [facility] 07-01-2024 15:35-0500 Body height 165.1 cm Sherlyn Shine PA Work Phone: [facility] 07-01-2024 15:35-0500 Body mass index (BMI) [Ratio] 20.93 kg/m2 Sherlyn Shine PA Work Phone: [facility] 07-01-2024 15:35-0500 Body temperature 97.7 [degF] Sherlyn Shine PA Work Phone: [facility] 07-01-2024 15:35-0500 Body weight 57.06 kg Sherlyn Shine PA Work Phone: [facility] 07-01-2024 15:35-0500 Diastolic blood pressure 80 mm[Hg] Sherlyn Shine PA Work Phone: [facility] 07-01-2024 15:35-0500 Heart rate 86 /min Sherlyn Shine PA Work Phone: [facility] 07-01-2024 15:35-0500 SaO2% (BldA) [Mass fraction] 98 % Sherlyn Shine PA Work Phone: [facility] 07-01-2024 15:35-0500 Systolic blood pressure 120 mm[Hg] Sherlyn Shine PA Work Phone: [facility] 06-27-2024 11:13-0500 Body mass index (BMI) [Ratio] 19.97 kg/m2 Raphael Goldsmith MD Work Phone: [facility] 06-27-2024 11:13-0500 Body temperature 96.6 [degF] Raphael Goldsmith MD Work Phone: [facility] 06-27-2024 11:13-0500 Body weight 54.43 kg Raphael Goldsmith MD Work Phone: [facility] 06-27-2024 11:13-0500 Diastolic blood pressure 60 mm[Hg] Raphael Goldsmith MD Work Phone: [facility] 06-27-2024 11:13-0500 Heart rate 83 /min Raphael Goldsmith MD Work Phone: [facility] 06-27-2024 11:13-0500 Systolic blood pressure 149 mm[Hg] Raphael Goldsmith MD Work Phone: [facility] 11-22-2023 20:52-0400 Body temperature 97.7 [degF] Jayson Calloway [facility] 11-22-2023 20:52-0400 Diastolic blood pressure 80 mm[Hg] Jayson Brodie [facility] 11-22-2023 20:52-0400 Heart rate 60 /min Jayson Brodie [facility] 11-22-2023 20:52-0400 Respiratory rate 17 /min Jayson Brodie [facility] 11-22-2023 20:52-0400 SaO2% (BldA) [Mass fraction] 100 % Jayson Brodie [facility] 11-22-2023 20:52-0400 Systolic blood pressure 147 mm[Hg] Jayson Brodie [facility] 11-22-2023 18:32-0400 Heart rate 87 /min Jayson Brodie [facility] 11-22-2023 18:32-0400 Respiratory rate 18 /min Jayson Brodie [facility] 11-22-2023 18:32-0400 SaO2% (BldA) [Mass fraction] 98 % Jayson Brodie [facility] 11-22-2023 17:50-0400 Diastolic blood pressure 80 mm[Hg] Jayson Brodie [facility] 11-22-2023 17:50-0400 Heart rate 68 /min Jayson Brodie [facility] 11-22-2023 17:50-0400 Respiratory rate 18 /min Jayson Brodie [facility] 11-22-2023 17:50-0400 SaO2% (BldA) [Mass fraction] 98 % Jayson Brodie [facility] 11-22-2023 17:50-0400 Systolic blood pressure 134 mm[Hg] Jayson Brodie [facility] 11-22-2023 16:24-0400 Body temperature 96.8 [degF] Jayson Brodie [facility] 11-22-2023 16:24-0400 Diastolic blood pressure 68 mm[Hg] Jayson Brodie [facility] 11-22-2023 16:24-0400 Systolic blood pressure 131 mm[Hg] Jayson Brodie [facility] 10-05-2023 21:54-0500 Diastolic blood pressure 81 mm[Hg] Kaylinn Dokken [facility] 10-05-2023 21:54-0500 Heart rate 75 /min Kaylinn Dokken [facility] 10-05-2023 21:54-0500 Respiratory rate 19 /min Kaylinn Dokken [facility] 10-05-2023 21:54-0500 SaO2% (BldA) [Mass fraction] 100 % Kaylinn Dokken [facility] 10-05-2023 21:54-0500 Systolic blood pressure 144 mm[Hg] Kaylinn Dokken [facility] 10-05-2023 18:04-0500 Body temperature 97.7 [degF] Kaylinn Dokken [facility] 10-05-2023 18:04-0500 Diastolic blood pressure 78 mm[Hg] Kaylinn Dokken [facility] 10-05-2023 18:04-0500 Heart rate 95 /min Kaylinn Dokken [facility] 10-05-2023 18:04-0500 Respiratory rate 22 /min Koby Masterson [facility] 10-05-2023 18:04-0500 SaO2% (BldA) [Mass fraction] 100 % Koby Masetrson [facility] 10-05-2023 18:04-0500 Systolic blood pressure 131 mm[Hg] Koby Masterson [facility] 09-26-2023 09:13-0500 Body height 165.1 cm Ana [place] CASINO DEALER.SCHOOL SUPERINTENDENT Work Phone: [facility] 09-26-2023 09:13-0500 Body weight 50.8 kg Ana [place] CASINO DEALER.SCHOOL SUPERINTENDENT Work Phone: [facility] 09-26-2023 09:13-0500 Diastolic blood pressure 57 mm[Hg] Ana [place] CASINO DEALER.SCHOOL SUPERINTENDENT Work Phone: [facility] 09-26-2023 09:13-0500 Heart rate 72 /min Ana [place] CASINO DEALER.SCHOOL SUPERINTENDENT Work Phone: [facility] 09-26-2023 09:13-0500 Respiratory rate 20 /min Ana [place] CASINO DEALER.SCHOOL SUPERINTENDENT Work Phone: [facility] 09-26-2023 09:13-0500 SaO2% (BldA) [Mass fraction] 98 % Ana [place] CASINO DEALER.SCHOOL SUPERINTENDENT Work Phone: [facility] 09-26-2023 09:13-0500 Systolic blood pressure 118 mm[Hg] Ana [place] CASINO DEALER.SCHOOL SUPERINTENDENT Work Phone: [facility] 09-18-2023 17:51-0500 Body height 165.1 cm Peggy Nazario MD Work Phone: [facility] 09-18-2023 17:51-0500 Body mass index (BMI) [Ratio] 19.34 kg/m2 Peggy Nazario MD Work Phone: [facility] 09-18-2023 17:51-0500 Body temperature 98.01 [degF] Peggy Nazario MD Work Phone: [facility] 09-18-2023 17:51-0500 Body weight 52.71 kg Peggy Nazario MD Work Phone: [facility] 09-18-2023 17:51-0500 Diastolic blood pressure 66 mm[Hg] Peggy Nazario MD Work Phone: [facility] 09-18-2023 17:51-0500 Heart rate 75 /min Peggy Nazario MD Work Phone: [facility] 09-18-2023 17:51-0500 SaO2% (BldA) [Mass fraction] 99 % Peggy Nazario MD Work Phone: [facility] 09-18-2023 17:51-0500 Systolic blood pressure 136 mm[Hg] Peggy Nazario MD Work Phone: [facility] 09-17-2023 06:00-0500 Diastolic blood pressure 60 mm[Hg] Parveen Armen [facility] 09-17-2023 06:00-0500 Heart rate 61 /min Parveen Armen [facility] 09-17-2023 06:00-0500 Mean blood pressure 79 mm[Hg] Parveen Armen [facility] 09-17-2023 06:00-0500 Respiratory rate 11 /min Parveen Armen [facility] 09-17-2023 06:00-0500 SaO2% (BldA) [Mass fraction] 100 % Parveen Armen [facility] 09-17-2023 06:00-0500 Systolic blood pressure 118 mm[Hg] Parveen Armen [facility] 09-17-2023 05:06-0500 Body temperature 96.98 [degF] Parveen Armen [facility] 09-17-2023 05:06-0500 Diastolic blood pressure 58 mm[Hg] Parveen Armen [facility] 09-17-2023 05:06-0500 gluc 79 mg/dL Parveen Armen [facility] 09-17-2023 05:06-0500 gluc Parveen Armen [facility] 09-17-2023 05:06-0500 Heart rate 85 /min Parveen Armen [facility] 09-17-2023 05:06-0500 Respiratory rate 20 /min Parveen Armen [facility] 09-17-2023 05:06-0500 SaO2% (BldA) [Mass fraction] 98 % Parveen Armen [facility] 09-17-2023 05:06-0500 Systolic blood pressure 140 mm[Hg] Parveen Armen [facility] 09-12-2023 06:38-0500 Diastolic blood pressure 93 mm[Hg] Parveen Armen [facility] 09-12-2023 06:38-0500 Heart rate 78 /min Parveen Armen [facility] 09-12-2023 06:38-0500 Mean blood pressure 109 mm[Hg] Parveen Armen [facility] 09-12-2023 06:38-0500 Respiratory rate 13 /min Parveen Armen [facility] 09-12-2023 06:38-0500 SaO2% (BldA) [Mass fraction] 98 % Parveen Armen [facility] 09-12-2023 06:38-0500 Systolic blood pressure 142 mm[Hg] Parveen Armen [facility] 09-12-2023 05:58-0500 Diastolic blood pressure 96 mm[Hg] Parveen Armen [facility] 09-12-2023 05:58-0500 Heart rate 55 /min Parveen Armen [facility] 09-12-2023 05:58-0500 Mean blood pressure 112 mm[Hg] Parveen Armen [facility] 09-12-2023 05:58-0500 Respiratory rate 16 /min Parveen Armen [facility] 09-12-2023 05:58-0500 SaO2% (BldA) [Mass fraction] 100 % Parveen Armen [facility] 09-12-2023 05:58-0500 Systolic blood pressure 144 mm[Hg] Parveen Armen [facility] 09-12-2023 04:56-0500 Diastolic blood pressure 77 mm[Hg] Parveen Armen [facility] 09-12-2023 04:56-0500 Heart rate 60 /min Parveen Armen [facility] 09-12-2023 04:56-0500 Mean blood pressure 94 mm[Hg] Parveen Armen [facility] 09-12-2023 04:56-0500 Respiratory rate 18 /min Parveen Armen [facility] 09-12-2023 04:56-0500 SaO2% (BldA) [Mass fraction] 100 % Parveen Armen [facility] 09-12-2023 04:56-0500 Systolic blood pressure 129 mm[Hg] Parveen Armen [facility] 09-12-2023 04:27-0500 gluc 96 mg/dL Parveen Armen [facility] 09-12-2023 04:27-0500 gluc Parveen Armen [facility] 09-12-2023 04:13-0500 Body temperature 96.98 [degF] Parveen Armen [facility] 09-12-2023 04:13-0500 Heart rate 83 /min Parveen Armen [facility] 09-12-2023 04:13-0500 Respiratory rate 16 /min Parveen Armen [facility] 08-11-2023 08:55-0500 Body height 165.1 cm Peggy Nazario MD Work Phone: [facility] 08-11-2023 08:55-0500 Body mass index (BMI) [Ratio] 19.44 kg/m2 Peggy Nazario MD Work Phone: [facility] 08-11-2023 08:55-0500 Body temperature 97.9 [degF] Peggy Nazario MD Work Phone: [facility] 08-11-2023 08:55-0500 Body weight 52.98 kg Peggy Nazario MD Work Phone: [facility] 08-11-2023 08:55-0500 Diastolic blood pressure 68 mm[Hg] Peggy Nazario MD Work Phone: [facility] 08-11-2023 08:55-0500 Heart rate 69 /min Peggy Nazario MD Work Phone: [facility] 08-11-2023 08:55-0500 SaO2% (BldA) [Mass fraction] 99 % Peggy Nazario MD Work Phone: [facility] 08-11-2023 08:55-0500 Systolic blood pressure 122 mm[Hg] Peggy Nazario MD Work Phone: [facility] 07-21-2023 06:46-0500 Blood Pressure Location Johan HENRIQUEZ [facility] 07-21-2023 06:46-0500 Diastolic blood pressure 57 mm[Hg] Johan HENRIQUEZ [facility] 07-21-2023 06:46-0500 Heart rate 81 /min Johan HENRIQUEZ [facility] 07-21-2023 06:46-0500 Respiratory rate 18 /min Johan HENRIQUEZ [facility] 07-21-2023 06:46-0500 SaO2% (BldA) [Mass fraction] 100 % Johan HENRIQUEZ [facility] 07-21-2023 06:46-0500 Systolic blood pressure 118 mm[Hg] Johan HENRIQUEZ [facility] 07-20-2023 09:56-0500 Blood Pressure Location Johan HENRIQUEZ [facility] 07-20-2023 09:56-0500 Diastolic blood pressure 52 mm[Hg] Johan HENRIQUEZ [facility] 07-20-2023 09:56-0500 Heart rate 62 /min Johan HENRIQUEZ [facility] 07-20-2023 09:56-0500 SaO2% (BldA) [Mass fraction] 98 % Johan HENRIQUEZ [facility] 07-20-2023 09:56-0500 Systolic blood pressure 105 mm[Hg] Johan HENRIQUEZ [facility] 07-07-2023 12:38-0500 Diastolic blood pressure 59 mm[Hg] Jeff Cross [facility] 07-07-2023 12:38-0500 Heart rate 94 /min Jeff Wadee [facility] 07-07-2023 12:38-0500 Respiratory rate 13 /min Jeff Wadee [facility] 07-07-2023 12:38-0500 SaO2% (BldA) [Mass fraction] 94 % Jeff Tay [facility] 07-07-2023 12:38-0500 Systolic blood pressure 123 mm[Hg] Jeff Tay [facility] 07-07-2023 12:00-0500 Diastolic blood pressure 83 mm[Hg] Jeff Wadee [facility] 07-07-2023 12:00-0500 Heart rate 102 /min Jeff Wadee [facility] 07-07-2023 12:00-0500 Mean blood pressure 96 mm[Hg] Jeff Tay [facility] 07-07-2023 12:00-0500 Respiratory rate 17 /min Jeff Wadee [facility] 07-07-2023 12:00-0500 SaO2% (BldA) [Mass fraction] 96 % Jeff Tay [facility] 07-07-2023 11:34-0500 Diastolic blood pressure 73 mm[Hg] Jeff Tay [facility] 07-07-2023 11:34-0500 Heart rate 93 /min Jeff Tay [facility] 07-07-2023 11:34-0500 Respiratory rate 18 /min Jeff Tay [facility] 07-07-2023 11:34-0500 SaO2% (BldA) [Mass fraction] 94 % Jeff Cross [facility] 07-07-2023 11:34-0500 Systolic blood pressure 109 mm[Hg] Jeff Cross [facility] 07-07-2023 09:52-0500 Heart rate 103 /min Jeff Cross [facility] 07-07-2023 08:57-0500 Body temperature 97.88 [degF] Jeff Cross [facility] 07-07-2023 08:57-0500 Heart rate 134 /min Jeff Cross [facility] 07-07-2023 08:57-0500 Respiratory rate 24 /min Jeff Cross [facility] 07-06-2023 14:03-0500 Hourly Rounding Ronobir ABDI [facility] 07-06-2023 14:03-0500 Promise to Return Ronobir ABDI [facility] 07-06-2023 13:34-0500 Hourly Rounding Ronobir ABDI [facility] 07-06-2023 13:00-0500 Hourly Rounding Ronobir ABDI [facility] 07-06-2023 13:00-0500 Promise to Return Ronobir ABDI [facility] 07-06-2023 12:07-0500 Promise to Return Ronobir ABDI [facility] 07-06-2023 12:00-0500 Blood Pressure Location Ronobir ABDI [facility] 07-06-2023 12:00-0500 Body temperature 98.06 [degF] Ronobir ABDI [facility] 07-06-2023 12:00-0500 Diastolic blood pressure 69 mm[Hg] Ronobir ABDI [facility] 07-06-2023 12:00-0500 Heart rate 78 /min Ronobir ABDI [facility] 07-06-2023 12:00-0500 Mean blood pressure 81 mm[Hg] Ronobir ABDI [facility] 07-06-2023 12:00-0500 SaO2% (BldA) [Mass fraction] 94 % Ronobir ABDI [facility] 07-06-2023 12:00-0500 Systolic blood pressure 105 mm[Hg] Ronobir ABDI [facility] 07-06-2023 10:00-0500 Diastolic blood pressure 66 mm[Hg] Ronobir ABDI [facility] 07-06-2023 10:00-0500 Heart rate 77 /min Ronobir ABDI [facility] 07-06-2023 10:00-0500 Mean blood pressure 78 mm[Hg] Ronobir ABDI [facility] 07-06-2023 10:00-0500 Systolic blood pressure 103 mm[Hg] Ronobir ABDI [facility] 07-06-2023 07:00-0500 Body temperature 97.7 [degF] Ronobir ABDI [facility] 07-06-2023 07:00-0500 Diastolic blood pressure 60 mm[Hg] Ronobir ABDI [facility] 07-06-2023 07:00-0500 SaO2% (BldA) [Mass fraction] 93 % Ronobir ABDI [facility] 07-06-2023 07:00-0500 Systolic blood pressure 97 mm[Hg] Ronobir ABDI [facility] 07-06-2023 00:18-0500 Body temperature 97.7 [degF] Ronobir ABDI [facility] 07-06-2023 00:18-0500 SaO2% (BldA) [Mass fraction] 93 % Ronobir ABDI [facility] 07-05-2023 22:10-0500 Mean blood pressure 79 mm[Hg] Ronobir ABDI [facility] 07-05-2023 16:03-0500 Mean blood pressure 88 mm[Hg] Ronobir ABDI [facility] 07-05-2023 11:18-0500 Mean blood pressure 77 mm[Hg] Ronobir ABDI [facility] 07-05-2023 11:18-0500 Body temperature 98.06 [degF] Ronobir ABDI [facility] 07-05-2023 09:59-0500 Mean blood pressure 86 mm[Hg] Ronobir ABDI [facility] 07-05-2023 09:58-0500 Body temperature 98.42 [degF] Ronobir ABDI [facility] 07-04-2023 19:23-0500 Body temperature 97.7 [degF] Ronobir ABDI [facility] 07-03-2023 18:22-0500 BP/Pulse Patient Position Ronobir ABDI [facility] 07-03-2023 14:00-0500 Respiratory rate 17 /min Ronobir ABDI [facility] 07-03-2023 06:46-0500 Respiratory rate 18 /min Ronobir ABDI [facility] 07-03-2023 06:45-0500 BP/Pulse Patient Position Ronobir ABDI [facility] 07-03-2023 04:30-0500 Respiratory rate 16 /min Ronobir ABDI [facility] 07-03-2023 02:45-0500 Heart rate 90 /min Ronobir ABDI [facility] 07-03-2023 02:30-0500 Respiratory rate 12 /min Ronobir ABDI [facility] 07-03-2023 02:15-0500 Respiratory rate 13 /min Ronobir ABDI [facility] 07-02-2023 21:27-0500 Heart rate 141 /min Ronobir ABDI [facility] 07-02-2023 21:27-0500 Respiratory rate 18 /min Ronobir ABDI [facility] 07-01-2023 00:30-0500 Diastolic blood pressure 76 mm[Hg] Kaylinn Dokken [facility] 07-01-2023 00:30-0500 Heart rate 102 /min Kaylinn Dokken [facility] 07-01-2023 00:30-0500 Mean blood pressure 82 mm[Hg] Kaylinn Dokken [facility] 07-01-2023 00:30-0500 Respiratory rate 18 /min Kaylinn Dokken [facility] 07-01-2023 00:30-0500 SaO2% (BldA) [Mass fraction] 95 % Kaylinn Dokken [facility] 07-01-2023 00:30-0500 Systolic blood pressure 93 mm[Hg] Kaylinn Dokken [facility] 06-30-2023 23:24-0500 Diastolic blood pressure 73 mm[Hg] Kaylinn Dokken [facility] 06-30-2023 23:24-0500 Heart rate 102 /min Kaylinn Dokken [facility] 06-30-2023 23:24-0500 Mean blood pressure 92 mm[Hg] Kaylinn Dokken [facility] 06-30-2023 23:24-0500 Respiratory rate 16 /min Kaylinn Dokken [facility] 06-30-2023 23:24-0500 SaO2% (BldA) [Mass fraction] 94 % Kaylinn Dokken [facility] 06-30-2023 23:24-0500 Systolic blood pressure 130 mm[Hg] Kaylinn Dokken [facility] 06-30-2023 22:30-0500 Body temperature 97.88 [degF] Kaylinn Dokken [facility] 06-30-2023 22:30-0500 Diastolic blood pressure 112 mm[Hg] Kaylinn Dokken [facility] 06-30-2023 22:30-0500 Heart rate 114 /min Kaylinn Dokken [facility] 06-30-2023 22:30-0500 Mean blood pressure 120 mm[Hg] Caitlyninn Dokken [facility] 06-30-2023 22:30-0500 Respiratory rate 18 /min Lisylinn Dokken [facility] 06-30-2023 22:30-0500 SaO2% (BldA) [Mass fraction] 100 % Caitlyninn Dokken [facility] 06-30-2023 22:30-0500 Systolic blood pressure 137 mm[Hg] Caitlyninn Dokken [facility] 06-30-2023 19:33-0500 Body temperature 97.7 [degF] Caitlyninn Dokken [facility] 06-30-2023 19:33-0500 Heart rate 123 /min Aran kken [facility] 04-26-2023 15:19-0400 Blood Pressure Location Micheline BROOKS [facility] 04-26-2023 15:19-0400 Diastolic blood pressure 88 mm[Hg] Micheline BROOKS [facility] 04-26-2023 15:19-0400 Heart rate 80 /min Micheline BROOKS [facility] 04-26-2023 15:19-0400 Systolic blood pressure 139 mm[Hg] Micheline BROOKS [facility] 04-04-2023 16:30-0400 Diastolic blood pressure 51 mm[Hg] Jeff Cross [facility] 04-04-2023 16:30-0400 Heart rate 39 /min Jeff Tay [facility] 04-04-2023 16:30-0400 Respiratory rate 14 /min Jeff Tay [facility] 04-04-2023 16:30-0400 SaO2% (BldA) [Mass fraction] 99 % Jeff Tay [facility] 04-04-2023 16:30-0400 Systolic blood pressure 145 mm[Hg] Jeff Tay [facility] 04-04-2023 15:52-0400 Body temperature 98.06 [degF] Jeff Tay [facility] 04-04-2023 15:52-0400 Diastolic blood pressure 81 mm[Hg] Jeff Tay [facility] 04-04-2023 15:52-0400 Heart rate 66 /min Jeff Tay [facility] 04-04-2023 15:52-0400 Respiratory rate 14 /min Jeff Tay [facility] 04-04-2023 15:52-0400 SaO2% (BldA) [Mass fraction] 99 % Jeff Tay [facility] 04-04-2023 15:52-0400 Systolic blood pressure 161 mm[Hg] Jeff Tay [facility] 04-04-2023 14:52-0400 Diastolic blood pressure 79 mm[Hg] Jeff Tay [facility] 04-04-2023 14:52-0400 Heart rate 64 /min Jeff Tay [facility] 04-04-2023 14:52-0400 Respiratory rate 14 /min Jeff Tay [facility] 04-04-2023 14:52-0400 SaO2% (BldA) [Mass fraction] 100 % Jeff Cross [facility] 04-04-2023 14:52-0400 Systolic blood pressure 95 mm[Hg] Jeff Cross [facility] 04-04-2023 14:07-0400 Body temperature 98.06 [degF] Jeff Cross [facility] 04-04-2023 13:52-0400 Body temperature 98.24 [degF] Jeff Cross [facility] 04-04-2023 13:52-0400 Heart rate 107 /min Jeff Cross [facility] 01-28-2023 21:23-0400 Body temperature 97.7 [degF] [facility] 01-28-2023 21:23-0400 Diastolic blood pressure 78 mm[Hg] [facility] 01-28-2023 21:23-0400 Heart rate 82 /min [facility] 01-28-2023 21:23-0400 Respiratory rate 18 /min [facility] 01-28-2023 21:23-0400 SaO2% (BldA) [Mass fraction] 97 % [facility] 01-28-2023 21:23-0400 Systolic blood pressure 125 mm[Hg] [facility] 09-01-2022 14:01-0500 Diastolic blood pressure 75 mm[Hg] Yennifer Iraheta [facility] 09-01-2022 14:01-0500 Mean blood pressure 91 mm[Hg] Yennifer Iraheta [facility] 09-01-2022 14:01-0500 Systolic blood pressure 122 mm[Hg] Mohamed Esequiel [facility] 09-01-2022 13:48-0500 Blood Pressure Location Yennifer Esequiel [facility] 09-01-2022 13:48-0500 Diastolic blood pressure 79 mm[Hg] Yennifer Esequiel [facility] 09-01-2022 13:48-0500 Heart rate 60 /min Yennifer Esequiel [facility] 09-01-2022 13:48-0500 SaO2% (BldA) [Mass fraction] 98 % Yennifer Esequiel [facility] 09-01-2022 13:48-0500 Systolic blood pressure 149 mm[Hg] Yennifer Esequiel [facility] 06-13-2022 08:54-0400 Blood Pressure Location Yennifer Esequiel [facility] 06-13-2022 08:54-0400 Diastolic blood pressure 68 mm[Hg] Yennifer Esequiel [facility] 06-13-2022 08:54-0400 Heart rate 75 /min Yennifer Esequiel [facility] 06-13-2022 08:54-0400 SaO2% (BldA) [Mass fraction] 96 % Yennifer Esequiel [facility] 06-13-2022 08:54-0400 Systolic blood pressure 132 mm[Hg] Yennifer Esequiel [facility] 03-03-2022 09:59-0400 Blood Pressure Location CARMINA GARRISON [facility] 03-03-2022 09:59-0400 Diastolic blood pressure 89 mm[Hg] CARMINA GARRISON [facility] 03-03-2022 09:59-0400 Heart rate 77 /min CARMINA GARRISON [facility] 03-03-2022 09:59-0400 Systolic blood pressure 140 mm[Hg] CARMINA GARRISON [facility] 02-15-2022 13:17-0400 Body temperature 98.6 [degF] Jeff Cross [facility] 02-15-2022 13:17-0400 Diastolic blood pressure 62 mm[Hg] Jeff Cross [facility] 02-15-2022 13:17-0400 Heart rate 86 /min Jeff Cross [facility] 02-15-2022 13:17-0400 Respiratory rate 18 /min Jeff Cross [facility] 02-15-2022 13:17-0400 SaO2% (BldA) [Mass fraction] 99 % Jeff Cross [facility] 02-15-2022 13:17-0400 Systolic blood pressure 151 mm[Hg] Jeff Wadee [facility] 12-24-2021 17:39-0400 Body temperature 97.7 [degF] Jeff Wadee [facility] 12-24-2021 17:39-0400 Diastolic blood pressure 70 mm[Hg] Jeff Tay [facility] 12-24-2021 17:39-0400 Heart rate 81 /min Jeff Wadee [facility] 12-24-2021 17:39-0400 Respiratory rate 15 /min Jeff Cross [facility] 12-24-2021 17:39-0400 SaO2% (BldA) [Mass fraction] 100 % Jeff Cross [facility] 12-24-2021 17:39-0400 Systolic blood pressure 163 mm[Hg] Jeff Cross [facility] Encounters Encounter Date Encounter Type Care Provider Facility Start: 04-07-2025 End: 04-07-2025 Shaggy Brian MD Work Phone: [facility] Start: 04-07-2025 End: 04-07-2025 Shaggy Brian MD Work Phone: [facility] Start: 04-07-2025 End: 04-07-2025 Office outpatient visit 25 minutes Hannah Brian MD Work Phone: [facility] Comment on above: Frequent urination ( Primary Dx); Painful urination; Left lower quadrant pain; Gastroesophageal reflux disease without esophagitis; Exertional dyspnea; Mitral valve regurgitation due to cardiomyopathy (HCC); Hypertensive heart disease with heart failure (HCC); Unspecified systolic (congestive) heart failure (HCC) Start: 04-07-2025 End: 04-07-2025 ambulatory HANNAH BRIAN Not Available Start: 03-31-2025 End: 03-31-2025 ambulatory [facility] Start: 02-18-2025 End: 02-18-2025 ambulatory PATTY [facility] Start: 02-10-2025 End: 02-10-2025 ambulatory [facility] Start: 01-23-2025 End: 01-23-2025 ambulatory [facility] Start: 01-22-2025 End: 01-22-2025 Shaggy Brian MD Work Phone: [facility] Start: 01-22-2025 End: 01-22-2025 Shaggy Brian MD Work Phone: [facility] Start: 01-22-2025 End: 01-22-2025 Office outpatient visit 25 minutes Hannah Brian MD Work Phone: [facility] Comment on above: Atrial fibrillation, persistent (HCC) (CMS/HCC) (Primary Dx); terminal carman 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; Mitral valve regurgitation due to cardiomyopathy (HCC) (CMS/HCC); Anxiety Start: 01-22-2025 End: 01-22-2025 ambulatory HANNAH BRIAN Not Available Start: 01-15-2025 Evaluation and manag ement of inpatient [facility] Start: 01-14-2025 Evaluation and manag ement of inpatient [facility] Start: 01-14-2025 ambulatory [facility] Start: 01-14-2025 End: 01-15-2025 Evaluation and management of inpatient [facility] Start: 01-13-2025 End: 01-13-2025 Shira Shettya Steve [facility] Comment on above: Anxiety Start: 01-07-2025 End: 01-07-2025 Office outpatient visit 25 minutes Hannah Brian MD Work Phone: [facility] Comment on above: Atrial fibrillation, persistent (HCC) (CMS/HCC) (Primary Dx); half-way 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; Primary hypertension (CMS/HCC); Anxiety; Panic attack (CMS/HCC) Start: 01-07-2025 End: 01-07-2025 ambulatory HANNAH BRIAN Not Available Start: 01-07-2025 End: 01-07-2025 Shaggy Brian MD Work Phone: [facility] Start: 01-07-2025 End: 01-07-2025 Shaggy Brian MD Work Phone: [facility] Start: [facility] Start: 12-17-2024 End: 12-17-2024 Office outpatient [...] 12-17-2024 Refill Hannah Brian MD Work Phone: [facility] Comment on above: Anxiety Start: 12-13-2024 ambulatory [facility] Start: 11-29-2024 End: 11-29-2024 ambulatory [facility] Start: 11-25-2024 End: 11-25-2024 Shaggy Brian MD Work Phone: [facility] Start: 11-25-2024 End: 11-25-2024 Bamboo lalit Brian MD Work Phone: [facility] Start: 11-25-2024 End: 11-25-2024 Office outpatient visit 25 minutes Hannah Brian MD Work Phone: [facility] Comment on above: Acute cough (Primary Dx); Bruising; terminal carman 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; Atrial fibrillation, persistent (HCC) (CMS/HCC); Primary hypertension (CMS/HCC); Cardiomyopathy, unspecified Start: 11-25-2024 End: 11-25-2024 ambulatory HANNAH BRIAN Not Available Start: 11-18-2024 End: 11-21-2024 External Result Encounter Hannah Brian MD Work Phone: [facility] External Department Unsolicited Start: 11-18-2024 End: 11-21-2024 External Result Encounter Hannah Brian MD Work Phone: [facility] External Department Unsolicited Start: 11-18-2024 End: 11-18-2024 Office outpatient visit 25 minutes Hannah Brian MD Work Phone: [facility] Comment on above: Acute cough (Primary Dx); Hematuria, unspecified type; terminal carman 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; Atrial fibrillation, persistent (HCC) (CMS/HCC); Primary hypertension (CMS/HCC) Start: 11-18-2024 End: 11-18-2024 ambulatory HANNAH BRIAN Not Available Start: 11-15-2024 End: 11-18-2024 Refill Hannah Brian MD Work Phone: [facility] Comment on above: Anxiety Start: 10-22-2024 End: 10-22-2024 ambulatory [facility] Start: 10-08-2024 End: 10-08-2024 Bamboo flowsheet [...] 08-20-2024 Refill Hannah Brian MD Work Phone: [facility] Comment on above: Anxiety Start: 08-12-2024 End: 08-12-2024 Office outpatient visit 25 minutes Rickie A Gabbyr EMERGENCY MANAGEMENT SYSTEM DIRECTOR Work Phone: [facility] Comment on above: Dysuria (Primary Dx) ; Urinary frequency; Atrial fibrillation, persistent (HCC) (CMS/HCC); terminal carman 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; BMI 22.0-22.9, adult Start: 08-12-2024 End: 08-12-2024 ambulatory RICKIE Gaetano RUSSELLR Not Available Start: 08-12-2024 End: 08-12-2024 Bamboo flowsheet Rickie A Gabbyr EMERGENCY MANAGEMENT SYSTEM DIRECTOR Work Phone: [facility] Start: 08-12-2024 End: 08-12-2024 Bamboo flowsheet Rickie A Donnamiller EMERGENCY MANAGEMENT SYSTEM DIRECTOR Work Phone: [facility] Start: 08-05-2024 End: 08-05-2024 Office outpatient visit 25 minutes Stephan Boo DO Work Phone: [facility] Comment on above: Postmenopausal atrop hic vaginitis; Breast cancer screening by mammogram Start: 08-05-2024 End: 08-05-2024 ambulatory STEPHAN BOO Not Available Start: 07-30-2024 End: 07-30-2024 ambulatory [facility] Start: 07-22-2024 End: 07-23-2024 Refill Hannah Brian MD Work Phone: [facility] Comment on above: Anxiety Start: 07-02-2024 End: 07-02-2024 ambulatory [facility] Start: 07-01-2024 End: 07-01-2024 Office outpatient visit [...] Start: 06-27-2024 End: 06-27-2024 ambulatory PEGGY NAZARIO Facility:[facility] Start: 06-27-2024 End: 06-27-2024 Patient encounter procedure Raphael Goldsmith MD Work Phone: Urology Comment on above: Feeling of incomplet e bladder emptying (Primary Dx); Stricture of female urethra, unspecified stricture type Start: 06-10-2024 ambulatory [facility] Start: 06-10-2024 End: 06-10-2024 ambulatory [facility] Start: 06-03-2024 End: 06-03-2024 ambulatory [facility] Facility[facility] Start: 06-03-2024 End: 06-03-2024 Patient encounter procedure PATTY MAXIMILIAN [facility] Start: 05-27-2024 End: 05-27-2024 ambulatory [facility] Start: 05-07-2024 End: 05-07-2024 Patient encounter procedure Raphael Goldsmith MD Work Phone: Urology Comment on above: Stricture of female urethra, unspecified stricture type (Primary Dx); Feeling of incomplete bladder emptying Start: 05-07-2024 End: 05-10-2024 ambulatory Raphael Goldsmith MD Work Phone: Urology Start: 01-24-2024 ambulatory Micheline Rothman ty:WILL Landisy Start: 12-22-2023 Refill Ana [place] CASINO DEALERSANDRA Work Phone: Cardiology Comment on above: Refill Request Start: 11-22-2023 End: 11-22-2023 Emergency department patient visit Jayson De LeonElise Calloway [facility] Start: 11-13-2023 End: 11-13-2023 ambulatory Hannah Brian Facility:[facility] Start: 11-13-2023 End: 11-13-2023 Patient encounter procedure Hannah De Leon Snehal [facility] Start: 10-16-2023 Telephone encounter Alea lynn MD Work Phone: Cardiology Comment on above: Patient Update Start: 10-16-2023 End: 10-16-2023 Patient encounter procedure Raphael Goldsmith MD Work Phone: Urology Comment on above: Feeling of incomplet e bladder emptying (Primary Dx); Stricture of female urethra, unspecified stricture type; Severe protein-calorie malnutrition (HCC) Start: 10-16-2023 End: 10-16-2023 ambulatory PEGGY NAZARIO Facility:[facility] Start: 10-05-2023 End: 10-05-2023 Emergency department patient visit Koby Masterson [facility] Start: 10-02-2023 Telephone encounter Alea lynn MD Work Phone: Cardiology Comment on above: Results Start: 09-26-2023 End: 09-26-2023 ambulatory Raphael Goldsmith MD Work Phone: Urology Start: 09-26-2023 Clinisync Result Encounter Generic External Data Provider [facility] External Department Unsolicited Start: 09-26-2023 Clinisync Result Encounter Generic External Data Provider [facility] External Department Unsolicited Start: 09-26-2023 End: 09-26-2023 Patient encounter procedure Ana Rivas APRN.[employer]CHOOL SUPERINTENDENT Work Phone: Cardiology Comment on above: Non-rheumatic mitral regurgitation (Primary Dx); Chronic HFrEF (heart failure with reduced ejection fraction) (HCC); Nonrheumatic tricuspid valve regurgitation; Non-ischemic cardiomyopathy (HCC); Persistent atrial fibrillation (HCC); half-way 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; History of cardioversion; [...] (I70.0) Start: 09-17-2023 Telephone encounter Carmina larios APRN.SCHOOL SUPERINTENDENT Work Phone: Cardiothoracic Comment on above: Medication Problem Start: 09-17-2023 End: 09-17-2023 Emergency department patient visit Parveen SElise Ayers [facility] Start: 09-13-2023 Refill Peggy Nazario MD Work Phone: [facility] Comment on above: Anxiety Start: 09-12-2023 Refill Peggy Nazario MD Work Phone: [facility] Comment on above: Gastroesophageal ref lux disease without esophagitis Start: 09-12-2023 End: 09-12-2023 Emergency department patient visit Parveen SElise Ayers [facility] Start: 08-28-2023 End: 08-28-2023 ambulatory PEGGY NAZARIO Facility:[facility] Start: 08-24-2023 Evaluation and manag ement of inpatient AMINA PETERSEN Facility:[facility] Start: 08-23-2023 End: 08-24-2023 Patient encounter procedure Prieto Villalba DO [facility] Start: 08-23-2023 End: 08-24-2023 ambulatory Prieto Villalba [...] to same day surgery center Johan HENRIQUEZ [facility] Start: 07-21-2023 End: 07-21-2023 ambulatory Johan HENRIQUEZ Facility[place] Start: 07-20-2023 End: 07-20-2023 ambulatory XXXX NONE Facility:[facility] Start: 07-20-2023 End: 07-20-2023 Patient encounter procedure Johan HENRIQUEZ [facility] Start: 07-19-2023 End: 07-19-2023 ambulatory Micheline BROOKS Facility: [facility] Start: 07-07-2023 End: 07-07-2023 Emergency department patient visit Jeff Cross [facility] Start: 07-04-2023 End: 07-06-2023 Pre-admission assessment Johan HENRIQUEZ [facility] Start: 07-02-2023 End: 07-06-2023 ambulatory Nahid OJUKWU Facility:[facility] Start: 07-02-2023 End: 07-06-2023 Observation Noman PATTON [facility] Start: 06-30-2023 End: 07-01-2023 Emergency department patient visit Koby Salter Dojd [facility] Start: 04-26-2023 End: 04-26-2023 Patient encounter procedure Micheline BROOKS [facility] Start: 04-04-2023 End: 04-04-2023 Emergency department patient visit Jeff Cross [facility] Start: 01-28-2023 End: 01-28-2023 Emergency department patient visit Layton Loerapedro [facility] Start: 12-05-2022 End: 12-05-2022 Patient encounter procedure Peggy Nazario [facility] Start: 10-25-2022 End: 10-25-2022 Patient encounter procedure Micheline BROOKS [facility] Start: 10-03-2022 End: 10-03-2022 Patient encounter procedure Asuncion Reyna [facility] [place] Start: 09-01-2022 End: 09-01-2022 Patient encounter procedure Yennifer Iraheta [facility] Start: 07-12-2022 End: 07-12-2022 Patient encounter procedure Yennifer Iraheta [facility] Start: 06-13-2022 End: 06-13-2022 Patient encounter procedure Yennifer Iraheta [facility] Start: 03-03-2022 End: 03-03-2022 Patient encounter procedure CARMINA GARRISON [facility] [place] Start: 02-15-2022 End: 02-15-2022 Emergency department patient visit Jeff Cross [facility] Start: 12-24-2021 End: 12-24-2021 Emergency department patient visit Jeff Cross [facility] Start: 08-11-2021 End: 11-10-2021 Patient encounter procedure Peggy Nazario [facility] Procedures Date Procedure Procedure Detail Performing Clinician [...] Screening for malign ant neoplasm of colon [facility] Start: 01-30-2028 Urine microalbumin profile DTa P,Tdap,Td Vaccine (5 - Td or Tdap) [facility] Start: 02-21-2027 [facility]: 09-26-2026 [facility] Start: 08-31-2026 [facility] Start: 04-09-2025 End: 04-09-2025 Patient encounter procedure 04/09/2025 3:20 PM EDT Office Visit [facility] [address] [place] [phone] Hannah Brian MD [address] [place] [address] [facility] Start: 04-07-2025 End: 04-07-2025 Patient encounter procedure 04/07/2025 1:40 PM EDT Office Visit [facility] [place] [facility] [address] [place] [phone] Hannah Brian MD [address] [place] [address] [facility] [place] [facility] Comment on above: Arrived Start: 01-22-2025 End: 01-22-2025 Patient encounter procedure 01/22/2025 2:00 PM EDT [facility] [address] [place] [phone] Hannah Brian MD [address] [place] [address] Arrived [facility] Comment on above: Arrived Start: 01-07-2025 End: [...] Visit [facility] [address] [place] [phone] Hannah Brian MD [address] [place] [address] Arrived [facility] Comment on above: Arrived Start: 11-18-2024 End: 11-18-2025 Bacteria identified in Urine by Culture Urine culture Microbiology Routine Hematuria, unspecified type Expected: 11/18/2024 (Approximate), Expires: 11/18/2025 [facility] Work Phone: Comment on above: Expected: 11/18/2024 (Approximate), Expires: 11/18/2025 Start: 11-08-2024 Pneumococcal Vaccine : 65+ Years (1 of 2 - PCV) Pneumococcal Vaccine: 65+ Years (1 of 2 - PCV) [facility] Comment on above: Postponed from 03/18 (Patient Refused) Start: 10-08-2024 End: 10-08-2024 Patient encounter procedure [facility] Comment on above: Arrived Start: 09-26-2024 BP Controlled (<130/80) BP Controlle d (<130/80) [facility] Start: 08-28-2024 BP Controlled (<130/80) BP Controlle d (<130/80) [facility] Start: 08-12-2024 End: 08-12-2024 Patient encounter procedure 08/12/2024 4:00 PM EST Office Visit [facility] [address] [place] [phone] Rickie Aviles NP [address] [place] [address] Arrived [facility] Comment on above: Arrived Start: 08-05-2024 End: 08-05-2024 Patient encounter procedure 08/05/2024 2:45 PM EST Office Visit [facility] [address] [place] [address] Stephan Boo, DO [address] [place] [address] [facility] Start: 08-05-2024 End: 10-06-2025 DBT Breast - bilateral screening Bilateral screening mammogram with tomosynthesis Imaging Routine Breast cancer screening by mammogram Expected: 08/05/2024, Expires: 10/06/2025 [facility] Work Phone: Comment on above: Expected: 08/05/2024 , Expires: 10/06/2025 Start: 07-29-2024 End: 07-29-2024 Patient encounter procedure 07/29/2024 3:45 PM EST Office Visit [facility] [address] [place] [phone] Stephan Boo, DO [address] [place] [address] [facility] Start: 07-24-2024 Medicare Annual Well ness (AWV) Medicare Annual Wellness (AWV) [facility] Start: 07-01-2024 End: 07-01-2024 Patient encounter procedure 07/01/2024 3:30 PM EST Office Visit [facility] [address] [place] [phone] Sherlyn Shine PA [address] [place] [address] Arrived [facility] Comment on above: [...] 11:10 AM EDT Office Visit Urology [address] [address] Raphael Goldsmith MD [address] [place] [address] 6 month follow up per cc chart Urology Comment on above: 6 month follow up pe r cc chart Start: 04-14-2024 Covid-19 Vaccine ( season) Covid-19 Vaccine ( season) [facility] Start: 04-14-2024 Influenza vaccination [facility] Start: 11-10-2023 End: 11-10-2023 Patient encounter procedure 11/10/2023 1:00 PM EDT Office Visit [facility] [address] [place] [phone] Peggy Nazario MD [address] [place] [address] [facility] Start: 11-08-2023 End: 02-07-2024 Basic metabolic 2000 panel - Serum or Plasma BASIC METABOLIC PNL Lab Routine Non-rheumatic mitral regurgitation Persistent atrial fibrillation (HCC) Non-ischemic cardiomyopathy (HCC) Chronic HFrEF (heart failure with reduced ejection fraction) (HCC) Expected: 11/08/2023 (Approximate), Expires: 02/07/2024 [facility] Work Phone: Comment on above: Expected: 11/08/2023 (Approximate), Expires: 02/07/2024 Start: 11-08-2023 End: 09-26-2024 ECG COMPLETE ECG COMPLETE ECG Routine Non-rheumatic mitral regurgitation Persistent atrial fibrillation (HCC) Non-ischemic cardiomyopathy (HCC) Chronic HFrEF (heart failure with reduced ejection fraction) (HCC) Expected: 11/08/2023 (Approximate), Expires: 09/26/2024 [facility] Work Phone: Comment on above: Expected: 11/08/2023 (Approximate), Expires: 09/26/2024 Start: 10-25-2023 End: 01-24-2024 Basic metabolic 2000 panel - Serum or Plasma BASIC METABOLIC PNL Lab Routine Non-rheumatic mitral regurgitation Persistent atrial fibrillation (HCC) Non-ischemic cardiomyopathy (HCC) Chronic HFrEF (heart failure with reduced ejection fraction) (HCC) Expected: 10/25/2023, Expires: 01/24/2024 [facility] Work Phone: Comment on above: Expected: 10/25/2023 , Expires: 01/24/2024 Start: 10-25-2023 End: 09-26-2024 ECG COMPLETE ECG COMPLETE ECG Routine Non-rheumatic mitral regurgitation Persistent atrial fibrillation (HCC) Non-ischemic cardiomyopathy (HCC) Chronic HFrEF (heart failure with reduced ejection fraction) (HCC) Expected: 10/25/2023, Expires: 09/26/2024 [facility] Work Phone: Comment on above: Expected: 10/25/2023 , Expires: 09/26/2024 Start: 10-10-2023 End: 01-09-2024 Basic metabolic 2000 panel - Serum or Plasma BASIC METABOLIC PNL Lab Routine Non-rheumatic mitral regurgitation Persistent atrial fibrillation (HCC) Non-ischemic cardiomyopathy (HCC) Chronic HFrEF (heart failure with reduced ejection fraction) (HCC) Expected: 10/10/2023 (Approximate), Expires: 01/09/2024 [facility] Work Phone: Comment on above: Expected: 10/10/2023 (Approximate), Expires: 01/09/2024 Start: 10-10-2023 End: 09-26-2024 ECG COMPLETE ECG COMPLETE ECG Routine Non-rheumatic mitral regurgitation Persistent atrial fibrillation (HCC) Non-ischemic cardiomyopathy (HCC) Chronic HFrEF (heart failure with reduced ejection fraction) (HCC) Expected: 10/10/2023 (Approximate), Expires: 09/26/2024 [facility] Work Phone: Comment on above: Expected: 10/10/2023 (Approximate), Expires: 09/26/2024 Start: 10-06-2023 End: 10-06-2023 Patient encounter procedure 10/06/2023 1:00 PM EST Office Visit [facility] [address] [place] [phone] Peggy Nazario MD [address] [place] [address] [facility] Start: 09-26-2023 End: 12-26-2023 Basic metabolic 2000 panel - Serum or Plasma BASIC METABOLIC PNL Lab Routine Non-rheumatic mitral regurgitation Persistent atrial fibrillation (HCC) Non-ischemic cardiomyopathy (HCC) Chronic HFrEF (heart failure with reduced ejection fraction) (HCC) Expected: 09/26/2023, Expires: 12/26/2023 [facility] Work Phone: Comment on above: Expected: 09/26/2023 , Expires: 12/26/2023 Start: 08-14-2023 Advance Directive Discussion Advance Directive Discussion [facility] Start: 08-14-2023 Behavioral Health Screening Behavioral Health Screening [facility] Start: 08-14-2023 Depression Assessment Depression Ass essment [facility] Start: 04-14-2023 Covid-19 Vaccine () Covid-19 Vaccine () [facility] Start: 04-14-2023 Influenza vaccination Influenza Vacc ine (#1) [facility] Start: 2023 RSV Vaccine (1 - 1-d ose 75+ series) RSV Vaccine (1 - 1-dose 75+ series) [facility] Start: 08-14-2022 Advance Directive Discussion Advance Directive Discussion [facility] Start: 08-14-2022 Depression Assessment Depression Ass essment [facility] Start: 02-15-2019 Colonoscopy Colonoscopy [facility] Start: 02-15-2019 Colorectal Cancer Screening Colorectal Cancer Screening [facility] Start: 02-15-2019 Screening for malign ant neoplasm of colon [facility] Start: 2013 Bone Density Screening Bone Density Screening [facility] Start: 2013 Pneumococcal Vaccine : 65+ (1 - PCV) Pneumococcal Vaccine: 65+ (1 - PCV) [facility] Start: 2013 Pneumococcal Vaccine : 65+ (1 of 1 - PCV) Pneumococcal Vaccine: 65+ (1 of 1 - PCV) [facility] Start: 2013 Screening for osteoporosis Bone Dens ity Screening [facility] Start: 2008 RSV Vaccine (1 - 1-d ose 60+ series) RSV Vaccine (1 - 1-dose 60+ series) [facility] Start: 1998 Shingrix Vaccine (1 of 2) Abdi grix Vaccine (1 of 2) [facility] Start: 1993 Cologuard (FIT-DNA) Cologuard (FIT-D NA) [facility] Start: [address] Colonography [facility] Start: 1993 Diabetes Screening Diabetes Screenin g [facility] Start: 1993 Fecal Occult Blood Fecal Occult Bloo d [facility] Start: 1993 Lipid 1996 panel - S theresa or Plasma Lipid Screening [facility] Start: 1993 Lipid panel Lipid Screening [facility] Start: 1993 Screening for malign ant neoplasm of colon [facility] Start: 1993 [facility] Start: 1967 Pneumococcal Vaccine : 65+ Years (1 of 2 - PCV) Pneumococcal Vaccine: 65+ Years (1 of 2 - PCV) [facility] Start: 1966 Annual PCP Team Instantizer Operator luis Disease Visit Annual PCP Team Chronic Disease Visit [facility] Start: 1966 BP Controlled (<130/80) BP Controlle d (<130/80) [facility] Start: 1966 Depression Screening Depression Scre ening [facility] Start: 1966 Hepatitis C Screening Hepatitis C [facility] Start: 1966 Hepatitis C screening Hepatitis C [facility] Start: 1954 Pneumococcal Vaccine : 65+ Years (1 - PCV) Pneumococcal Vaccine: 65+ Years (1 - PCV) [facility] Start: 1954 Pneumococcal Vaccine : 65+ Years (1 of 2 - PCV) Pneumococcal Vaccine: 65+ Years (1 of 2 - PCV) [facility] Start: 1948 Covid-19 Vaccine (#1) Covid-19 Vacci ne (#1) [facility] Start: 1948 Screening for malign ant neoplasm of colon [facility] Cystourethroscopy CYSTO.PANENDO Procedures Routine Feeling of incomplete bladder emptying Stricture of female urethra, unspecified stricture type Ordered: 09/26/2023 [facility] Work Phone: Comment on above: Ordered: 09/26/2023 Dilat female urethra w/suppository&/instlj ini URETHRAL DILATION(FEMALE) Procedures Routine 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 Immunizations Immunization Date Immunization Notes Care Provider Olivia valdez 01-29-2018 tetanus toxoid, reduced diphtheria toxoid, and acellular pertussis vaccine, adsorbed Peggy Nazario MD Work Phone: [facility] 02-16-2016 tetanus and diphtheria toxoids, adsorbed, preservative free, for adult use (5 Lf of tetanus toxoid and 2 Lf of diphtheria toxoid) Peggy Nazario MD Work Phone: [facility] 12-14-2009 diphtheria, tetanus toxoids and pertussis vaccine Peggy Nazario MD Work Phone: [facility] 12-30-2004 diphtheria and tetanus toxoids, adsorbed for pediatric use Peggy Nazario MD Work Phone: [facility] NEGATED: Highlighted row has not occurred!07-20-2023 influenza virus vaccine, unspecified formulation Johan MARTINEZ [facility] Payers Date Payer Category Payer [facility] BCBS [id number] 2016 Unknown [id number] 2016 Unknown [id number] 2013 Medicare [id number] 2013 Medicare [id number] 1948 Unknown [id number] 2.840.1.193948.3.579. 2. 1948 Unknown [id number] 2.16840.1.836774.3.579. 2. 1948 Unknown [id number] 2.16.840.1.294199.3.579. 2. 1948 Unknown [id number] 2.16840.1.630566.3.579. 2.72 1948 Unknown [id number] 2.16.840.1.121312.3.579. 2.72 1948 Unknown [id number] 2.16840.1.248790.3.579. 2.727 1948 Unknown [id number] 2.16840.1.924182.3.579. 2. 1948 Unknown [id number] 2.16.840.1.297285.3.579. 2.72 1948 Unknown [id number] 2.16840.1.291069.3.579. 2. 1948 Unknown [id number] 2.16840.1.034491.3.579. 2. 1948 Unknown [id number] 2.840.1.043302.3.579. 2. 1948 Unknown [id number] 2.840.1.755767.3.579. 2. 1948 Unknown [id number] 2.840.1.533272.3.579. 2. 1948 Unknown [id number] 2.840.1.305046.3.579. 2.1258 1948 Unknown [id number] 2.840.1.748312.3.579. 2.1258 1948 Unknown [id number] 2.840.1.271020.3.579. 2.1258 1948 Unknown [id number] 2.840.1.940202.3.579. 2.1258 1948 Unknown [id number] 2.840.1.268066.3.579. 2.125 1948 Unknown [id number] 2.16840.1.468476.3.579. 2.1258 1948 Unknown [id number] 2.840.1.752727.3.579. 2.1258 1948 Unknown [id number] 2.840.1.415578.3.579. 2.1259 1948 Unknown [id number] 2.16.840.1.258997.3.579. 2.1259 1948 Unknown [id number] 2.16.840.1.549838.3.579. 2.1259 Social History Date Type Detail Facility Start: 02-23-2021 End: 04-12-2023 Tobacco smoking status Ex-smoker (finding) [facility] Comment on above: Denies Start: 07-08-2020 End: 11-25-2024 Sex Assigned At Female [facility] Tobacco smoking status Never [facility] Comment on above: Denies History of tobacco use Current smoker [facility] Start: 10-24-2017 End: 04-12-2023 Tobacco use and exposure Smokeless tobacco non-user [facility] Start: 10-24-2017 Alcohol intake Current drinke r of alcohol (finding) [facility] Start: 07-08-2020 End: 11-25-2024 History of Social function [facility] Start: 09-26-2012 End: 08-23-2023 Tobacco Comment Quit 1996. social smoker mostly [facility] Start: 1948 Sex Assigned At Not [...] [Reported] [facility] 11-22-2023 Functional Status [facility] 10-05-2023 Functional [facility] N[facility] 09-17-2023 Functional Status N[facility] 09-12-2023 Functional Status N[facility] 07-21-2023 Functional Status No [facility] 07-20-2023 Functional Status No [facility] 07-07-2023 Functional Status N[facility] 07-03-2023 Functional Status N[facility] 07-02-2023 [facility] 06-30-2023 Functional Status N[facility] 04-26-2023 Functional Status N/A [facility] 04-04-2023 Functional Status N[facility] 01-28-2023 [facility] N[facility] 10-19-2022 [facility] N[facility] 10-03-2022 Functional Status N/A [facility] 09-01-2022 Functional Status No [facility] 06-13-2022 Functional Status No [facility] 03-03-2022 Functional Status N/A [facility] 02-15-2022 Functional Status N[facility] Clinical Notes 12-24-2021 to 04-07-2025 Hannah [...] - as above documented in this encounter [facility] 03-31-2025 Note [facility] Subjective Harjit Asencio is a 75 [...] insomnia Urethral stricture Urinary frequency Urinary urgency half-way 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 Paroxysmal atrial fibrillation [...] her recent visit with cardiology at [facility] on 09/26/2023 valsartan was stopped and low-dose lisinopril 5 mg once daily was added. The plan was to add Jardiance. There is note of her to being evaluated by CT surgery Dr. Sorto regarding candidacy for cardiac surgery and she was deemed high risk. She was also evaluated at [facility] cardiothoracic surgery. Initial workup for her mitral valve disease was started. Spironolactone was changed to half tablet twice a day instead of 1 tablet once a day. She was also recommended to start taking digoxin at night instead of the morning. At visit with ia on 10/16/2023 I increased her carvedilol to 6.25 mg twice daily. I asked for a cardiopulmonary excise test. After visit with me on 10/30/2023 I added Jardiance 10 mg daily to optimize GDMT for systolic heart failure. I also started her on amiodarone to attempt rhythm control. Following that she stopped both medications due to side effects. After visit with ia on 12/01/2023 I referred her to Patty [...] She has under (more content not included)... [facility] 02-10-2025 Note [facility] Subjective Harjit Asencio is a 74 y.o. year old female patient being seen for 30 day s/p MitraClip. Had echo 02/07/2025. C/o hematuria. [facility] and said she was [...] insomnia Urethral stricture Urinary frequency Urinary urgency half-way 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 Paroxysmal atrial fibrillation [...] her recent visit with cardiology at [facility] on 09/26/2023 valsartan was stopped and low-dose lisinopril 5 mg once daily was added. The plan was to add Jardiance. There is note of her to being evaluated by CT surgery Dr. Sorto regarding candidacy for cardiac surgery and she was deemed high risk. She was also evaluated at [facility] cardiothoracic surgery. Initial workup for [...] Patient Position: S (more content not included)... [facility] 01-23-2025 Note Patient is here [...] a UTI. Review of Systems Constitutional: Negative. [facility] 01-23-2025 Note Cardiovascular Medic [facility] SUBJECTIVE Chief Complaint Patient presents [...] insomnia Urethral stricture Urinary frequency Urinary urgency half-way 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 Paroxysmal atrial fibrillation [...] 45 tablet, Rfl: (more content not included)... [facility] 01-22-2025 History of Present illness [...] Flowsheet Row Patient Outreach from 01/20/2025 in [facility] with Loida Nathan LPN Hospital Information [...] visit: Atrial fibrillation, persistent (HCC) (CMS/HCC) (Primary) half-way 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 Mitral valve regurgitation due to cardiomyopathy (HCC) (CMS/HCC) Anxiety Reviewed hospital and ED course with pt Discussed sx tx, side effects of meds and concerning sx to monitor for. No changes in meds at this time Encouraged continued follow up with specialists Follow up if symptoms worsen or fail to improve. documented in this encounter [facility] 01-14-2025 Note Patient: Harjit Asencio Procedure Summary Date: 01/14/25 Room / Location: [facility] / [facility] (Cath) Anesthesia Start: 830 Anesthesia [...] no known notable events for this encounter. [facility] 01-14-2025 Note Patient intubated un bart observation by anesthesia [facility] 01-14-2025 Note Patient: Harjit Asencio Procedure Information Anesthesia Start Date/Time: 01/14/25830 Procedure: Transcatheter mitral valve repair - case for general anesthesia approved by Dr Callejas, NPCR Location: [facility] / [facility] (Cath) Providers: Rafael Robins MD [...] with mixed anxiety and depressed mood Afib ([facility]) Anxiety Arrhythmia Atherosclerosis of aorta Atrial fibrillation ([facility]/HCC) CHF (congestive heart failure) ([facility]/HCC) Chronic fatigue syndrome GERD (gastroesophageal reflux disease) Heart murmur Heart valve disease Hypertension Hypothyroidism Intestinal obstruction ([facility]/HCC) Non-rheumatic mitral regurgitation Nonischemic cardiomyopathy ([facility]) Nonrheumatic tricuspid valve regurgitation Panic attack Presence [...] with attending and resident. Additional Equipment Requests [facility] 01-14-2025 Note Arterial Line: Date/Time: [...] no complications. Additional notes: [place] Staffing Performed: resident/PLAY READER/CAA Anesthesiologist: Lobo Machado MD Resident/PLAY READER: Margaret Briceno MD Performed by: Micheline Mendoza MD Authorized by: Lobo Machado MD [facility] 01-14-2025 Note Airway Date/Time: 01/14/2025 8:52 AM Urgency: elective Airway not difficult General Information and Staff Patient location during procedure: [place] Anesthesiologist: Lobo Machado MD Resident/PLAY READER/CAA: Margaret Briceno MD Performed: resident/PLAY READER/CAA Indications and Patient Condition Indications for airway [...] 1 Number of other approaches attempted: 0 [facility] 01-13-2025 Telephone encounter Note Rx sent, HR OOO. OARRS appropriate. [facility] 01-13-2025 Miscellaneous Notes Rx sent, HR OOO. OARRS appropriate. HR OOO Pt needs refill on Lorazapam sent to [facility]. documented in this encounter [facility] 01-13-2025 Telephone encounter Note HR OOO [facility] 01-13-2025 Telephone encounter Note Pt needs refill on Lorazapam sent to [facility]. [facility] 01-07-2025 History of Present illness Narrative Images [...] in regimen. Continue to follow w/ specialists half-way 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 - Continue to monitor for abnormal bruising or bleeding Primary hypertension (CMS/HCC) Stable, continue to monitor. No change in regimen. Anxiety Stable, continue to monitor. No change in regimen. Panic attack (CMS/HCC) Stable, continue to monitor. No change in regimen. documented in this encounter [facility] 12-25-2024 Note I have reviewed this patient's medical record, cardiac imaging. she has severe secondary (functional) mitral regurgitation, chronic heart failure with reduced ejection fraction and has persistent symptoms NYHA class III despite maximally tolerated guideline-directed medical therapy. I think that she is a good candidate for and would benefit from transcatheter [id number] repair. [facility] 12-23-2024 Note [facility] Subjective Harjit Asencio is a 74 [...] insomnia Urethral stricture Urinary frequency Urinary urgency terminal carman 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 Paroxysmal atrial fibrillation [...] her recent visit with cardiology at [facility] on 09/26/2023 valsartan was stopped and low-dose lisinopril 5 mg once daily was added. The plan was to add Jardiance. There is note of her to being evaluated by CT surgery Dr. Sorto regarding candidacy for cardiac surgery and she was deemed high risk. She was also evaluated at [facility] cardiothoracic surgery. Initial workup for [...] and are negativ (more content not included)... [facility] 12-17-2024 History of Present illness [...] to monitor for. documented in this encounter [facility] 11-25-2024 History of Present illness Narrative Images [...] meds and concerning sx to monitor for. terminal carman 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 Atrial fibrillation, persistent (HCC) (CMS/HCC) Stable, continue to monitor. No change in regimen. Continue to follow w/ specialists Primary hypertension (CMS/HCC) Stable, continue to monitor. No change in regimen. Continue to follow w/ specialists documented in this encounter [facility] 11-18-2024 History of Present illness Narrative Images [...] POCT Urinalysis dipstick - Urine culture; Future terminal carman 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 - continue to monitor for abnormal bruising/bleeding Atrial fibrillation, persistent (HCC) (CMS/HCC) Stable, continue to monitor. No change in regimen. Continue to follow w/ cardiology Primary hypertension (CMS/HCC) Stable, continue to monitor. No change in regimen. Continue to follow w/ cardiology documented in this encounter [facility] 10-22-2024 Note [place] [facility] Reason for visit: Afib+ CMP 10/22/24 Patient underwent a GUEST SERVICES-P implant on 02/28/2024 when a GUEST SERVICES-P was placed in a submuscular fashion with [...] she has done very well since her GUEST SERVICES. Device check performed on 07/30/2024 shows patient being BiV paced 98% of the time 02/22/24 Pt here to discuss about GUEST SERVICES-P Prior HPI: Harjit Asencio is a 74 [...] and subsequently had a visit with [facility] where evaluation was being done for surgical correction of mitral valve but was noted to have high risk and hence deferred. She also had an evaluation for the [place] and thereafter had seen in [...] Tobacco Use: Medium Risk (10/08/2024) Received from [facility] Patient History Smoking Tobacco Use: Former Smokeless Tobacco Use: Never Passive Exposure: Never Alcohol Use: Not At Risk (08/05/2024) Received from [facility] [employer] AUDIT-C Frequency of Alcohol Consumption: Never Average Number of Drinks: Patient does not drink Frequency of Binge Drinking: Never Financial Resource Strain: Not on file Food Insecurity: Not on file Transportation Needs: Not on file Physical Activity: Not on file Stress: Not on file Social Connections: Not on file Intimate Partner Violence: Unknown (10/05/2023) [place] Safety & Environment Fear of Current or Ex-Partner: Not on file Emotionally Abused: Not on file Physically Abused: Not on file Sexually Abused: Not on file Physically or Sexually Abused: Not on file Depression: Not at risk (08/05/2024) Received from [facility] PHQ-2 Patient Health Questionnaire-2 Score: 0 Housing [...] 3 LORazepam (Ativan) (more content not included)... [facility] 10-08-2024 History of Present illness [...] carvedilol dosage, which was prescribed by her dental assistant. She has been experiencing shortness of breath, [...] and plans to discuss this with her dental assistant during her upcoming appointment. She has been [...] and plans to discuss this with her dental assistant during her upcoming appointment. She has been [...] and plans to discuss this with her dental assistant during her upcoming appointment. She has been [...] dosage of carvedilol was increased by her dental assistant. Symptoms include shortness of breath, irregular heart rhythm, and night terrors. Her blood pressure is currently stable. She is advised to discuss these symptoms with her dental assistant during her upcoming appointment next month. 2. [...] for this patient. documented in this encounter [facility] 09-20-2024 Telephone encounter Note Pt needs a refill on Ativan Please send to [facility] [facility] 09-20-2024 Miscellaneous Notes Pt needs a refill on Ativan [facility] documented in this encounter [facility] 08-12-2024 History of Present illness Narrative Harjit [...] Negative - 160(16) ++++ mg/dL Negative Specific [place], UA 1 - 1.03 1.005 Blood, UA [...] persistent (HCC) (CMS/HCC) Continue current medication regimen. half-way 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 Continue current medication [...] substitutions have occurred. documented in this encounter [facility] 08-05-2024 History of Present illness Narrative Images from the original note were not included. Stephan Boo, Obstetrics and Gynecology Harjit Asencio 1950 08/05/24 [id number] Yearly Wellness Exam Chief Complaint Patient presents with Gynecologic Exam Medicare off year. LMP: MIR BS 1983 HRT: None Last pap 07-24-23 neg. Last mammogram 12-05-22 [facility]. 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 documented in this encounter [facility] 07-02-2024 Note Cardiovascular Medic [facility] SUBJECTIVE Chief Complaint Patient presents with Atrial [...] insomnia Urethral stricture Urinary frequency Urinary urgency half-way 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 Paroxysmal atrial fibrillation [...] and regular rhythm. (more content not included)... [facility] 07-02-2024 Note Patient here for [...] All other systems reviewed and are negative. [facility] 07-01-2024 History of Present illness [...] eat. She has an appointment with a biotechnician tomorrow. She has been taking spironolactone, which [...] research. She will follow up with the biotechnician and nurse practitioner tomorrow to check her [...] for this patient. documented in this encounter [facility] 06-27-2024 Note [facility] 06-27-2024 History of Present illness Narrative [...] for Female Urology and Reconstructive Pelvic Surgery/Urology [facility] [place] [facility] Monse documented in this encounter [facility] 06-27-2024 Nurse Note PROCEDURE NURSE ASSESSMENT [...] patient verbalizes understanding: yes Clarice Gardiner MA [facility] 06-27-2024 Instructions Clarice Gardiner MA - 06/27/2024 10:59 AM EST [facility] DR. RAPHAEL GOLDSMITH AFTER [...] office: Dr. Raphael Goldsmith M.D., Office PH#: [phone] After 5 pm and on weekends: Call [phone] and ask for the urologist apron trimmer. The doctor will need to know that you have had a cystoscopy and what symptoms you are having. documented in this encounter [facility] 06-27-2024 Nurse Note PROCEDURE NURSE ASSESSMENT [...] with drinking extra fluids. Please call the [place] office at [phone], Monday-Monday, 8 am - 5 pm, with any questions you may have. Please ask to be transferred to the Urology nurses in the back office area. If you call after 5 PM or on the weekends, please call [phone], ask for the Urologist apron trimmer. Thank You, Your Urology Team documented in this encounter [facility] 06-27-2024 Nurse Note POST INSTRUCTIONS Cystoscopy [...] with drinking extra fluids. Please call the [place] office at [phone], Monday-Monday, 8 am - 5 pm, with any questions you may have. Please ask to be transferred to the Urology nurses in the back office area. If you call after 5 PM or on the weekends, please call [phone], ask for the Urologist apron trimmer. Thank You, Your Urology Team [facility] 06-10-2024 Note AV NODE ABLATION PRO [...] and subsequently had a visit with [facility] where evaluation was being done for surgical correction of mitral valve but was noted to have high risk and hence deferred. She [place] had [place] evaluation for the [place] and thereafter had seen in [...] poor candidate for Afib ablation, she underwent GUEST SERVICES-P on 02/28/24. She is here for AVN [...] Continue anticoagulation. Patty Yao MD Cardiac Electrophysiology. [facility] 06-10-2024 Note Patient: Harjit Asencio Procedure Information Date/Time: 06/10/24 1200 Procedure: AV node ablation - PC APPROVED Location: [facility] 1 EP / [facility]ASCULAR [facility] (Cath) Providers: Patty Yao MD Clinical information reviewed: Allergies Meds OB Status Physical Exam Airway Mallampati: II TM distance: >3 FB Cardiovascular Dental Pulmonary Abdominal Anesthesia Plan ASA 3 CSE Anesthetic plan and risks discussed with patient. Use of blood products discussed with patient who. Additional Equipment Requests [facility] 05-28-2024 Note case [facility] 05-27-2024 Note [place] [facility] Subjective Harjit Asencio is a 74 [...] insomnia Urethral stricture Urinary frequency Urinary urgency terminal carman 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 Paroxysmal atrial fibrillation [...] her recent visit with cardiology at [facility] on 09/26/2023 valsartan was stopped and low-dose lisinopril 5 mg once daily was added. The plan was to add Jardiance. There is note of her to being evaluated by CT surgery Dr. Sorto regarding candidacy for cardiac surgery and she was deemed high risk. She was also evaluated at [facility] cardiothoracic surgery. Initial workup for [...] irregularly irregular. Pulse (more content not included)... [facility] 05-07-2024 Note [facility] 05-07-2024 History of Present illness Narrative [facility] ESTABLISHED UROLOGY VISIT CENTER FOR [...] repeat urethral dilation in 2-3 months at [place] in office -Plan to assess for atrophic vaginitis at time of urethral dilation due to patient concern for irritation around upper thigh/vagina Erika Ho MD I have personally performed a face to face diagnostic evaluation on this patient. My findings are as above. Raphael Goldsmith MD plan urethral dil per req documented in this encounter [facility] 05-07-2024 Nurse Note Post Void Residual done on patient with 0 cc residual volume remaining. notified. CARISSA Garvey [facility] 05-07-2024 Nurse Note Post Void Residual done on patient with 0 cc residual volume remaining. notified. CARISSA Garvey documented in this encounter [facility] 12-22-2023 Telephone encounter Note The following approved medication requests have been transmitted electronically. Requested Prescriptions Signed Prescriptions Disp Refills lisinopril (ZESTRIL) 10 mg tablet 45 tablet 0 Sig: take 1/2 tablet by mouth once daily Authorizing Provider: Benitez SAMUELS pantoprazole DR (PROTONIX) 40 mg tablet 90 tablet 0 Sig: take 1 tablet by mouth every day Authorizing Provider: Benitez SAMUELS APRN.SCHOOL SUPERINTENDENT [facility] 12-22-2023 Miscellaneous Notes The following approved medication requests have been transmitted electronically. Requested Prescriptions Signed Prescriptions Disp Refills lisinopril (ZESTRIL) 10 mg tablet 45 tablet 0 Sig: take 1/2 tablet by mouth once daily Authorizing Provider: Benitez SAMUELS pantoprwm DR (PROTONIX) 40 mg tablet 90 tablet 0 Sig: take 1 tablet by mouth every day Authorizing Provider: Benitez SAMUELS APRN.SCHOOL SUPERINTENDENT documented in this encounter [facility] 11-22-2023 Hospital Discharge instructions Patient Education 11/22/2023 20:40:30 Constipation, Adult, Qllu-qj-Brec Constipation, Adult Constipation is when a person [...] high in fat and sugar, such as: ?[place] fries. ?Hamburgers. ?Cookies. ?Candy. ?Soda. Drink enough fluid to keep your pee (urine) pale yellow. General instructions Exercise regularly or as told by your doctor. Try to do 150 minutes of exercise each week. Go to the restroom when you feel like you need to poop. Do not hold it in. Take xeqa-dbb-getszve and prescription medicines only as told by [...] keep your pee (urine) pale yellow. Take ndmy-hih-eyfszon and prescription medicines only as told by your doctor. These include any fiber supplements. This information is not intended to replace advice given to you by your health care provider. Make sure you discuss any questions you have with your health care provider. Document Revised: 06/17/2020 Document Reviewed: 06/17/2020 [employer] Patient Education 2022 [employer]. Follow Up Care 11/22/2023 16:18:30 With:Hannah Brian MD Address: [address] [place] [address]- When:11/25/2023 [facility] 10-16-2023 Miscellaneous Notes October 16, 2023 Patient Contact Number: [phone] Patient last seen within the last year: [...] Yes Gloria Mendes documented in this encounter [facility] 10-16-2023 Note [facility] 10-16-2023 History of Present illness Narrative [...] due to it helping the symptoms Pedro'Benitez [facility] NOTE / UNIVERSAL PROTOCOL / [...] Time: 11:18 AM documented in this encounter [facility] 10-16-2023 Note [facility] 10-16-2023 Nurse Note Actual procedure/procedure scheduled: Yes Performing provider/scheduled provider: Yes Patient was roomed in: Q9- 07 Mainspring Strip Inspector offered:Patient declines Patient arrived in the room [...] Education Session: None Instruction Provided To: Patient Supervisor M[employer] Present: no Discipline: Nursing Learning Topic: SURVIVAL SKILLS: Symptom Management Patient Evaluation: Verbalizes understanding: Yes Supplemental Material Given: Written Material Instructed By DAWSON Farr In Department Urology . documented in this encounter [facility] 10-05-2023 Hospital Discharge instructions Patient Education 10/05/2023 21:56:35 Constipation, Adult, Zqao-qg-Mfzp Constipation, Adult Constipation is when a person [...] high in fat and sugar, such as: ?[place] fries. ?Hamburgers. ?Cookies. ?Candy. ?Soda. Drink enough fluid to keep your pee (urine) pale yellow. General instructions Exercise regularly or as told by your doctor. Try to do 150 minutes of exercise each week. Go to the restroom when you feel like you need to poop. Do not hold it in. Take xamq-gww-wnnhzsq and prescription medicines only as told by [...] keep your pee (urine) pale yellow. Take ofyv-mel-qlxsqfa and prescription medicines only as told by your doctor. These include any fiber supplements. This information is not intended to replace advice given to you by your health care provider. Make sure you discuss any questions you have with your health care provider. Document Revised: 06/17/2020 Document Reviewed: 06/17/2020 [employer] Patient Education 2022 [employer]. 10/05/2023 21:56:35 Gastroesophageal Reflux Disease, Adult, Mhia-ld-Colp Gastroesophageal Reflux Disease, Adult Gastroesophageal reflux (ZUNILDA) [...] powder, vinegar, hot sauces, and BBQ sauce. ?[place] fruit juices and citrus fruits, such as oranges, ronald, and limes. ?Tomato-based foods. These include red sauce, chili, salsa, and pizza with red sauce. ?Fried and fatty foods. These include donuts, swiss fries, potato chips, and high-fat dressings. ?High-fat [...] to any changes in your symptoms. Take ltjm-ato-hhykmwo and prescription medicines only as told by [...] provider. Document Revised: 02/08/2021 Document Reviewed: 02/08/2021 [employer] Patient Education 2022 Bloom[employer]. 10/05/2023 21:56:35 Abdominal Pain, Adult, Wgck-eg-Wrpz Abdominal Pain, Adult Many things can cause belly (abdominal) pain. Most times, belly pain is not dangerous. Many cases of belly pain can be watched and treated at home. Sometimes, though, belly pain is serious. Your doctor will try to find the cause of your belly pain. Follow these instructions at home: Medicines Take mzvu-lqv-tvywwyn and prescription medicines only as told by [...] your belly pain for any changes. Take mywb-geu-dyelplj and prescription medicines only as told by [...] provider. Document Revised: 12/09/2019 Document Reviewed: 12/09/2019 [employer] Patient Education 2022 Bloomz. Follow Up Care 10/05/2023 17:56:41 With:Johan HENRIQUEZ Address: [address] [place] [address]- [phone] Business (1) When:10/08/2023 20:57:11 With:Peggy Nazario Address: [address] [place] [address]- Business (1) When:Within 3 Day(s) [facility] 10-05-2023 Evaluation + Plan note Extrac deepak [...] day(s), # 28 tab(s), Refills(s) 0, Pharmacy: [facility], 165, cm, 10/05/23 18:07:00 EST, Height/Length Dosing, 50.3, kg, 10/05/23 18:07:00 EST, Weight Dosing lidocaine topical, 200 mg, 10 mL, Soln-Oral, Oral, Once, Stop date 10/05/23 20:48:00 EST, STAT, Start date 10/05/23 20:48:00 EST ECG 12 Lead Adult Future Appointments Appointment Date:01/24/2024 02:30:00 PM Scheduled Provider:Micheline BROOKS MD Location:Critical access hospital Appointment Type:URO Office Visit Future Scheduled Tests Laboratory* Basic Metabolic Panel 07/12/23 * Digoxin Level 07/12/23 [facility]02-19-2024 Miscellaneous Notes* Telephone Encounter - Gloria Mendes - 10/02/2023 9:35 AM EST October 02, 2023 Patient Contact Number: [phone] Patient last seen within the last year: Yes Date of last office visit: 09/26/2023 Reason For Call: Test Results; pt requesting to go over 09/26 labs Physician: Alea Harley MD Patient was informed that non-urgent calls may be returned within the next three business days. Yes Gloria Mendes [facility] Nurse Note* Chrissy Roberts OCCA - 09/26/2023 2:28 PM EST Post Void Residual done on patient with 45 cc residual volume remaining. notified. CARISSA Ferrell [facility] History of Present illness Narrative* Raphael Goldsmith MD - 09/26/2023 2:15 PM EST [facility] NEW UROLOGY VISIT CENTER FOR [...] Medicine and Reconstructive Surgery documented in [facility] Instructions* Patient Instructions* Ana Rivas APRN.CNP [...] with labs and EKG documented in [facility]-2024 [facility] History of Present illness Narrative* Ana Rivas APRN.CNP - 09/26/2023 8:51 AM EST Images from the original note were not included. [facility] [place] [facility] Department of Cardiovascular Medicine SECTION OF CLINICAL CARDIOLOGY OUTPATIENT VISIT DATE September 26, 2023 OUTPATIENT VISIT TYPE ESTABLISHED PRIMARY CARE PHYSICIAN: Peggy Nazario MD [address] [place] [address] REFERRING PHYSICIAN: Dr. Alea Harley [id number] [facility] [address] CHIEF COMPLAINT: Established Patient HISTORY OF PRESENT [...] ECG Confirmed by fellow NANCY MCMAHON, ZIGGY ([id number]) on 09/04/2023 1:50:09 PM Confirmed by MD DEJUAN, PhD, [facility] ([id number]) on 09/11/2023 1:23:[address] Result Conclusion CTA CHEST (GATED) W IVCON Exam End: 08/23/2023 7:47 AM (Final result) Impression: IMPRESSION: Dilated left ventricle, biatrial enlargement. Mitral valve is noncalcified. Normal caliber thoracic aorta. Business Continuity Planner: PSCB Transcribe Date/Time: Aug 23 2023 11:20A [...] a plan of care. documented in [facility] Miscellaneous Notes* Telephone Encounter - Carmina Reyna RN - 09/21/2023 4:[address] Harley would like patient to come in and be seen to go over this in greater detail. Work on setting her up with an EMERGENCY MANAGEMENT SYSTEM DIRECTOR and Dr. Harley would like to be in for the appointment. Next Monday. Carmina Reyna RN * Telephone Encounter - Gloria Mendes - 09/21/2023 3:33 PM EST September 21, 2023 Patient Contact Number: [phone] Patient last seen within the last year: [...] days. Yes Gloria Mendes [facility] History of Present illness Narrative* Farrukh [...] Flowsheet Row Patient Outreach from 09/18/2023 in [facility] with Loida Nathan LPN Discharge Information ED or Hospital Discharge? ED Patient has been contacted within 1 week of being seen in the ED Yes Discharge Date 09/17/23 Discharge Hospital [facility] [DX: ACid reflux, Medication reaction] Discharged [...] for ER follow up. Pt seen at [facility] [place] on 09/17/23 due to dizziness and shaking. Hospitalrecords were reviewed. Pt had an elevated BP. She believes the dizziness and shaking was caused by the valsartan. She had the same issues when she was on it before, was advised to cut it in half. Shestates she has been feeling better since she stopped it. Pt would like a referral to a new dental assistant/surgeon. She states she has been told that [...] referred to a cardiothoracic surgeon at [facility]. Discussed some risks of surgery. - Ambulatory referral to Cardiothoracic Surgery; Future Entered by _El_, acting as scribe for _Aravind_. Signature _Heath MCMAHON_ Date _09/18/2023_. The documentation recorded by the scribe accurately reflects the service(s) I personally performed and the decisions I made. documented in this encounterChildren[id number] Evaluation + Plan note Extracted from: Title:ED [...] Date:01/24/2024 02:30:00 PM Scheduled Provider:Micheline BROOKS MD Location:Critical access hospital Appointment Type:URO Office Visit Future Scheduled Tests Laboratory* Basic Metabolic Panel 07/12/23 * Digoxin Level 07/12/23 [facility]02-04-2024 Hospital Discharge instructions Patient Education 09/17/2023 06:16:25 [...] medicines that you are allergic to. Take hajr-mnd-wdplhia and prescription medicines only as told by your health care provider. If you were given medicines to treat your allergic reaction, do not drive until your health care provider tells you it is safe. If you have hives or a rash: ?Use an mzkp-wzq-ubzayyq antihistamine as told by your health care [...] provider. Document Revised: 01/10/2022 Document Reviewed: 01/10/2022 [employer] Patient Education 2022 Bloom[employer]. 09/17/2023 06:16:25 Heartburn Heartburn Heartburn is a [...] powder, vinegar, hot sauces, and barbecue sauce. ?[place] fruit juices and citrus fruits, such as oranges, ronald, and limes. ?Tomato-based foods, such as red sauce, chili, salsa, and pizza with red sauce. ?Fried and fatty foods, such as donuts, swiss fries, potato chips, and high-fat dressings. ?High-fat [...] ask your health care provider. Medicines Take zsao-llf-svhkhmn and prescription medicines only as told by [...] told by your health care provider. Take meep-vlr-nriadri and prescription medicines only as told by [...] provider. Document Revised: 02/03/2021 Document Reviewed: 02/03/2021 [employer] Patient Education 2022 Bloomz. Follow Up Care 09/17/2023 04:56:21 With:Peggy Nazario Address: [address] [place] [phone]- Business (1) When:Within 3 Day(s) [facility]02-04-2024 Miscellaneous Notes* Telephone Encounter - Carmina Mcmahan APRN.SCHOOL SUPERINTENDENT - 09/17/2023 6:25 AM EST Patient reported that she went to the ED, said her blood pressure was up instead of down this time . I didn't sleep, I can't take that medicine, there's something that don't agree with me. She reiterates that she can't take that medication (valsartan) again. Carmina Mcmahan APRN.CNP [facility]LEYMAN[facility] Lithographic Artist 09/17/2023 6:29 AM documented in this encounterBarn[facility]ville Hospital02-[facility]24 Miscellaneous Notes* Telephone Encounter - Carmina Mcmahan APRN.CNP - 09/17/2023 4:21 AM EST [facility] Center Inbound Phone Encounter DATE of SERVICE: 09/17/2023 TIME of SERVICE: 4:21 AM Status: Urgent Service/Provider: Clinical Cardiology Alea Harley MD Reason for call: Medication Issue/Question Contact information: [phone] Resolution: Reinforced education and Sent to [facility] Comments: Patient calling after waking up with [...] to try. Carmina Mcmahan APRN.CNP [facility] [employer]ographic Artist Date of Resolution: 09/17/2023 Time of Resolution 4:21 AM documented in this encounterBarnesville Hospital02-02-2024 Telephone encounter Note * Telephone Encounter - Rupal Lemus - 09/15/2023 1:24 PM EST Pt calls to check status of this, wants this done as quickly as possible, states that she will haveto cut pills in half to make it through the weekend and missed one last night. [facility] [id number] Miscellaneous Notes* Telephone Encounter - Rupal Allan [...] completely on monday documented in this encounterNOMS [id number] Telephone encounter Note* Telephone Encounter - Candis Amaro - 09/15/2023 9:49 AM EST Pt calls to ask [facility] [id number] Telephone encounter Note* Telephone Encounter - Candis Amaro - 09/13/2023 11:25 AM EST Pt said she [id number] Telephone encounter Note* Telephone Encounter - Farrukh Mcmahan MA - 09/13/2023 11:06 AM EST Rx signed [id number] Telephone encounter Note* Telephone Encounter - Candis Amaro - 09/13/2023 11:01 AM EST Pt calls for refill of lorazepam is almost out will be out completely on monday [facility] [id number] Evaluation + Plan noteExtracted from: Title:ED Note [...] 02:30:00 PM Scheduled Provider:CECILIA MCMAHON, Micheline Morgan Location:Critical access hospital Appointment Type:URO Office Visit Future Scheduled Tests Laboratory* Basic Metabolic Panel 07/12/23 * Digoxin Level 07/12/23 [facility]01-30-2024 Hospital Discharge instructions Patient Education 09/12/2023 06:47:40 [...] as meditation or yoga. General instructions Take quwz-gwp-uweoxlw and prescription medicines only as told by [...] provider. Document Revised: 05/20/2022 Document Reviewed: 05/20/2022 [employer] Patient Education 2022 [employer] 09/12/2023 06:47:40 Gastroesophageal Reflux Disease, Adult [...] powder, vinegar, hot sauces, and barbecue sauce. ?[place] fruit juices and citrus fruits, such as oranges, ronald, and limes. ?Tomato-based foods, such as red sauce, chili, salsa, and pizza with red sauce. ?Fried and fatty foods, such as donuts, swiss fries, potato chips, and high-fat dressings. ?High-fat [...] to any changes in your symptoms. Take guhv-dls-vefeeuc and prescription medicines only as told by [...] you have new or worsening symptoms. Take hzbo-xjv-nidizyj and prescription medicines only as told by [...] provider. Document Revised: 02/08/2021 Document Reviewed: 02/08/2021 [employer] Patient Education 2022 [employer] Follow Up Care 09/12/2023 04:04:55 With:Peggy Nazario Address: [address] [place] [id number] Business (1) When:Within 3 Day(s) [facility]24 Note [facility]27-2023 [facility] History of Past illness Narrative* Problem Noted Date Diagnosed Date Resolved Date Acute on chronic systolic co ngestive heart failure 08/26/2023 08/27/2023 documented as of this encounter (statuses as of 09/17/2023) [address]13-2024 History of Past illness Narrative* Problem Noted Date Diagnosed Date Resolved Date Acute on chronic systolic co ngestive heart failure 08/26/2023 08/27/2023 documented as of this encounter (statuses as of 09/21/2023) [address]13-2024 History of Past illness Narrative* Problem Noted Date Diagnosed Date Resolved Date Acute on chronic systolic co ngestive heart failure 08/26/2023 08/27/2023 documented as of this encounter (statuses as of 09/26/2023) [facility] of Past illness Narrative* Problem Noted Date Diagnosed Date Resolved Date Acute on chronic systolic co ngestive heart failure 08/26/2023 08/27/2023 documented as of this encounter (statuses as of 09/26/2023) [facility] of Past illness Narrative* Problem Noted Date Diagnosed Date Resolved Date Acute on chronic systolic co ngestive heart failure 08/26/2023 08/27/2023 documented as of this encounter (statuses as of 09/29/2023) [facility] of Past illness Narrative* Problem Noted Date Diagnosed Date Resolved Date Acute on chronic systolic co ngestive heart failure 08/26/2023 08/27/2023 documented as of this encounter (statuses as of 10/02/2023) [facility] History of Past illness Narrative* Problem Noted Date Diagnosed Date Resolved Date Acute on chronic systolic co ngestive heart failure 08/26/2023 08/27/2023 documented as of this encounter (statuses as of 10/16/2023) [address]13-2024 History of Past illness Narrative* Problem Noted Date Diagnosed Date Resolved Date Acute on chronic systolic co ngestive heart failure 08/26/2023 08/27/2023 documented as of this encounter (statuses as of 10/17/2023) [address]13-2024 History of Past illness Narrative* Problem Noted Date Diagnosed Date Resolved Date Acute on chronic systolic co ngestive heart failure 08/26/2023 08/27/2023 documented as of this encounter (statuses as of 10/20/2023) [facility] NoteHNO ID: [id number] Author: NOTE, INTERFACE, ? Service: ? Author Type: ? Type: Progress Notes Filed: 08/26/2023 02:15 Note Text: Epic Scheduled Downtime: 08/26/2023 1:00:00 AM to 08/26/2023 2:04:22 [facility]01-11-2024 [facility]24 Note [facility]01[facility]10-2024 [facility]2023 NoteProcedure The risk/benefits of the procedure [...] Education Routine Capillary Glucose POC Saline Lock InsertFort Hamilton HospitalComment on above:Result Comment: Electronically Signed By: MARTINEZ MCMAHON, Johan Ribeiro.zak\Date and Time Signed: 07/05/23 06:48 [id number] History of Present illness Narrative* Farrukh Mcmahan, JOSUE - 08/11/2023 8:45 AM EST Harjit Asencio is a 73 y.o. female presents today to follow up on anxiety. HPI: Pt here today for follow up on anxiety. Pt states yesterday she had a panic attack. She received a [place] from [facility] that made her very upset and she had a panic attack. She felt like she couldn't catchher breath the rest of the day. Pt is currently on holter monitor. Pt [facility] that she is confused about and [...] Chronic fatigue syndrome Discussed. documented in this encounterChildren's Mercy NorthlandLyjoytotzt06-49-0095 Miscellaneous Notes* Telephone Encounter - Rebecca Fernandez - 07/24/2023 10:22 AM EST IN * Telephone Encounter - Katie Nicholson - 07/24/2023 10:08 AM EST Please register insurance Thank you! documented in this encounterBarnesville Hospital12-11-2023 Note [id number] [facility] 07-21-2023 Evaluation + Plan noteExtracted from: Title:Procedure Note Heart & Vascular Author:Johan GERMAN MD Date:07/21/23 Ordered: benzocaine/butamben/tetracaine topical, 3 spray(s), [place]-Top, Topical, q2min PRN Other (see comment), Routine, [...] Oxygen Therapy Saline Lock Insert Suctioning HAROON ([facility]) Vital Signs Future Appointments Appointment Date:01/24/2024 02:30:00 PM Scheduled Provider:Micheline BROOKS MD Location:Critical access hospital Appointment Type:URO Office Visit Future Scheduled Tests Laboratory* Basic Metabolic Panel 07/12/23 * Digoxin Level 07/12/23 [facility]12-08-2023 Hospital Discharge instructions Patient Education 07/21/2023 08:44:29 CV - Post-Transesophageal Echocardiogram (Custom) [place], [place] POST-TRANSESOPHAGEAL ECHOCARDIOGRAM AFTER THE PROCEDURE: Diet: [...] appointment Seek Medical Care if: Notify your dental assistant should you have any difficulty swallowing or coughing up blood. In the event you are unable to reach your dental assistant, please call [facility] at [phone] and the digital computer operator will assist you. Follow Up Care 07/20/2023 11:03:45 With:Johan HENRIQUEZ Address: [address] [place] [phone] Business (1) When: Unknown Comments:-After your appointment with CC [facility]12-08-2023 NoteProcedure The risk/benefits of the procedure were [...] plan_ Assessment/Plan Ordered: benzocaine/butamben/tetracaine topical, 3 spray(s), [place]-Top, Topical, q2min PRN Other (see comment), Routine, [...] Oxygen Therapy Saline Lock Insert Suctioning HAROON ([facility]) Vital SignsFort Hamilton HospitalComment on above:Result Comment: Electronically Signed By: MARTINEZ MCMAHON, Johan Ribeiro.br\Date and Time Signed: 07/21/23 07:09 [id number] Evaluation + Plan note Future Appointments Appointment Date:07/21/2023 08:00:00 AM Scheduled Provider: [facility] Appointment Type:[facility] (FT) Appointment Date:07/21/2023 08:00:00 AM Scheduled Provider: [facility] Appointment Type:CV Echo (FT) Appointment Date:01/24/2024 02:30:00 PM Scheduled Provider:Micheline BROOKS MD Location:Critical access hospital Appointment Type:URO Office Visit Future Scheduled Tests Laboratory* Basic Metabolic Panel 07/12/23 * Digoxin Level 07/12/23 Radiology* Echo Transesophageal 2D 07/21/23 [facility]11-29-2023 Evaluation + Plan note Future Scheduled Tests Laboratory* Basic Metabolic Panel 07/12/23 * Digoxin Level 07/12/23 [facility] 11-24-2023 Hospital Discharge instructions Patient Education 07/07/2023 [...] health careprovider. Avoid caffeine, alcohol, and certain itox-buf-uihjlhh cold medicines. These may make you feel worse. Ask your pharmacist which medicines to avoid. General instructions Take wggt-fwt-ghgsiwq and prescription medicines only as told by [...] Depression Association of [place] (ADAA): www.adaa.org National Schulter on Mental Illness (TAYLOR): www.taylor.org Contact a [...] department or: Call your local emergency services (165 in the [place] Call a suicide crisis helpline, such as the National Suicide Prevention Lifeline at or 140 in the [place] This is open 24 hours a day in the [place] Text the Crisis Text Line at 831018 (in the [place] Summary Taking steps to [...] provider. Document Revised: 02/23/2022 Document Reviewed: 11/21/2021 [employer] Patient Education 2022 [employer] 07/07/2023 13:04:14 Atrial Fibrillation Atrial Fibrillation [...] electrical signals of the heart. An ambulatory surveillance system monitor to record your heart's activity for [...] provider. Document Revised: 01/22/2020 Document Reviewed: 01/22/2020 [employer] Patient Education 2022 [employer] Follow Up Care 07/07/2023 08:56:48 With:Johan HENRIQUEZ Address: [address] [place] [phone] Business (1) When:07/10/2023 12:45:48 With:Peggy Nazario Address: [address] [place] [address]- Business (1) When:07/10/2023 12:45:46 [facility]11-24-2023 NoteAdmission and Discharge Information Admitting Physician - Noman PATTON DO Consulting Physician - Shell MCMAHON, Eb Yeh [facility] Cardio, XXXX Admitting Diagnoses: Discharge Diagnoses 1. [...] of breath. She was subsequently [facility] with acute paroxysmal atrial fibrillation with rapid ventricular response?new onset, acute systolic congestive heart failure, elevated troponin, severe mitral regurgitation and tricuspid regurgitation, mild coronary artery disease. She was seen in consultation by the dental assistant and underwent cardiac catheterization and echo cardiogram. [...] is for patient to follow-up with a dental assistant as well as the urologist as outpatient. She may need valvular repair or replacement after follow-up with the dental assistant and may also require HAROON as per the dental assistant. Discharge time: 35 minutes. I spent 35 [...] 76.7 % Lymph Auto - 15.3 % [place] Auto - 7.7 % Eos Auto - 0.0 % Basophil Auto - 0.3 % Neutro Absolute - 4.7 E9/L Lymph Absolute - 0.9 E9/L [place] Absolute - 0.5 E9/L Eos Absolute - [...] - 79 mg/dL POC Device SN - [id number] POC User ID - [id number] POC Username - NIKHIL PAULSON CBC w/ [...] HDL - 43 mg/dL (more content not included)...[facility] HospitalComment on above:Result Comment: Electronically Signed By: Nahid SERRATO MD\.br\Date and Time Signed: 07/07/23 12:07 [id number] Evaluation + Plan noteExtracted from: Title:APSO Note Author:Nahid SERRATO MD Date:09/05/22 73-year-old female with history of ureteral stricture with previous dilations, anxiety disorder presented with complaints of urinary hesitancy, constipation, cough and shortness of breath and was admitted to [facility] with acute paroxysmal atrial fibrillation with [...] IV Cardizem drip. Continue on Coreg, digoxin. Last Cleaner debating on starting patient on amiodarone. Eliquis to start in 4 days after cardiac catheterization. Ordered: [facility] Care/Day Moderate 35 Minutes 58445 2. Acute systolic congestive heart failure (I50.21: Acute systolic (congestive) heart failure) Acute systolic congestive heart failure present on admission. Seen by dental assistant and underwent cardiac catheterization that showed mild coronary artery disease. Also shows severe mitral regurgitation and tricuspid regurgitation with ejection fraction of 30 to 35%. Continue on aspirin, Coreg, losartan and Lasix. Ordered: [facility] Care/Day Moderate 35 Minutes [id number] 3. Severe mitral regurgitation (I34.0: Nonrheumatic mitral (valve) insufficiency) As seen on cardiac catheterization. Patient will follow-up with dental assistant for HAROON and then valvular repair. Last Cleaner also considering transferring patient to or [facility]. Ordered: [facility] Care/Day Moderate 35 Minutes 53656 4. Elevated troponin (R79.89: Other specified abnormal findings of blood chemistry) Secondary to type II non-ST segment elevation myocardial infarction from above and mild coronary artery disease.. Seen by dental assistant and underwent cardiac catheterization that showed mild coronary artery disease. Continue on aspirin, Lipitor, and Coreg. Ordered: [facility] Care/Day Moderate 35 Minutes 29927 5. Mild coronary artery disease (I25.10: Atherosclerotic heart disease of [place] coronary artery without angina pectoris) As seen on cardiac catheterization on 07/05/2023. Continue on Lipitor and aspirin. [facility]/Day Moderate 35 Minutes 82253 6. anxiety (F41.9: Anxiety disorder, unspecified) Increase [...] deep vein thrombosis (DVT) prophylaxis (Z79.899: Other care home (current) drug therapy) SCDs. Eliquis to resume in 4 days. Disposition: Home soon today if heart rate is under good control with plans to follow-up with dental assistant and urologist as outpatient. However if heart rate is still elevated then we will call [facility] or [facility] to see if we can transfer patient for valve repair/replacement. I discussed the diagnosis and plan of care with the patient at the bedside. Moderate level of MDM based on addressing above issues. This documentation was transcribed using voice recognition software. Several attempts were made to ensure accuracy. However inadvertent computerized transition of care specialist errors may be present. Nahid Serrato. Hospitalist. [...] to transfer the patient directly to the [facility] or [facility] given her logistic challenges with getting [...] artery disease (I25.10: Atherosclerotic heart disease of [place] coronary artery without angina pectoris) 6. Pleural effusion (J90: Pleural effusion, not elsewhere classified) 7. Urinary hesitancy (R39.11: Hesitancy of micturition) 8. Other urethral stricture, female (N35.82: Other urethral stricture, female) 9. Urinary retention (R33.9: Retention of urine, unspecified) 10. Constipation (K59.00: Constipation, unspecified) 11. On deep vein thrombosis (DVT) prophylaxis (Z79.899: Other care home (current) drug therapy) Orders: acetaminophen, 650 mg [...] shortness of breath and was admitted to [facility] with acute paroxysmal atrial fibrillation with [...] 07/06/23 9:00:00 EST, 07/05/23 11:13:00 EST [facility] Care/Day Moderate 35 Minutes 26961 2. Acute systolic congestive heart failure (I50.21: Acute systolic (congestive) heart failure) Acute systolic congestive heart failure present on admission. Seen by dental assistant. She is status post cardiac catheterization that showed mild coronary artery disease. Also showed severe mitral regurgitation and tricuspid regurgitation.. Ejection fraction of 30 to 35%. Continue on aspirin, Coreg, losartan, Lasix. Ordered: [facility] Care/Day Moderate 35 Minutes 22772 3. Severe mitral regurgitation (I34.0: Nonrheumatic mitral (valve) insufficiency) Severe mitral regurgitation seen on cardiac catheterization. Follow-up with dental assistant as outpatient for HAROON and then valvular repair. Ordered: [facility] Care/Day Moderate 35 Minutes 25709 4. Elevated troponin (R79.89: Other specified abnormal findings of blood chemistry) Secondary to type II non-ST segment elevation myocardial infarction from above and mild coronary artery disease.. Seen by dental assistant and underwent cardiac catheterization that showed mild coronary artery disease. Continue on aspirin, Lipitor, and Coreg. Ordered: furosemide, 40 mg = 1 tab(s), Tab, Oral, Daily, Routine, Start date 07/06/23 9:00:00 EST, 07/05/23 11:13:00 EST [facility] Care/Day Moderate 35 Minutes 48831 5. Mild coronary artery disease (I25.10: Atherosclerotic heart disease of [place] coronary artery without angina pectoris) As seen on cardiac catheterization on 07/06/2023. Continue on Lipitor and aspirin. Ordered: [facility] Care/Day Moderate 35 Minutes 51901 6. 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 Disposition: Home in a.m. to follow-up with dental assistant and urologist. I discussed the diagnosis and plan of care with the patient at the bedside. Moderate level of MDM based on addressing above issues. This documentation was transcribed using voice recognition software. Several attempts were made to ensure accuracy. However inadvertent computerized transition of care specialist errors may be present. Nahid Serrato. Hospitalist. Orders: Basic Metabolic Panel Basic Metabolic Panel Referral to [facility] Extracted from: Title:APSO Note Author:JAZMÍN MCMAHON, Nahid Date:09/03/22 73-year-old female with history of ureteral stricture with previous dilations, anxiety disorder presented with complaints of urinary hesitancy, constipation, cough and shortness of breath and was admitted to [facility] with acute paroxysmal atrial fibrillation with [...] BID, # 60 tab(s), Refills(s) 0, Pharmacy: [id number], 165, cm, 07/02/23 21:30:00 EST, Height/Length Dosing, 55.7, kg, 07/02/23 21:30:00 EST, Weight Dosing Echo Transthoracic Complete [facility] Care/Day Moderate 35 Minutes 00326 2. Acute systolic congestive heart failure (I50.21: Acute systolic (congestive) heart failure) Acute systolic congestive heart failure present on admission. Cardiology is following. Ejection fraction of 30 to 35%. Cardiology is planning on cardiac catheterization for ischemic work-up in AM. Meanwhile continue on aspirin, Coreg, losartan. We will verify with dental assistant about Lasix. Ordered: [facility] Care/Day Moderate 35 Minutes 79355 3. Elevated troponin (R79.89: Other specified abnormal findings of blood chemistry) Secondary to type II non-ST segment elevation myocardial infarction from above. Echocardiogram shows ejection fraction of 30 to 35%. Last Cleaner following with plans for cardiac catheterization in AM. Meanwhile continue on aspirin and Coreg. Ordered: Echo Transthoracic Complete [facility] Care/Day Moderate 35 Minutes 04663 4. Pleural effusion (J90: Pleural effusion, not elsewhere classified) Small pleural effusion secondary to acute systolic congestive heart failure. Supportive care. Lasix as needed. Ordered: [facility] Care/Day Moderate 35 Minutes 71161 5. Urinary hesitancy (R39.11: Hesitancy of micturition) Secondary to urethral stricture and urinary retention. She is status post Robles catheter placement. Urology consult reviewed by me. I appreciate and agreed recommendations. Patient will discharge with Robles catheter and leg bag to follow-up with urologist as outpatient. Ordered: [facility] Care/Day Moderate 35 Minutes 60979 6. Other urethral stricture, female (N35.82: Other [...] NOW, Start date 07/03/23 11:16:00 EST [facility] Care/Day Moderate 35 Minutes 80849 9. On deep vein thrombosis (DVT) prophylaxis (Z79.899: Other care home (current) drug therapy) Lovenox. Disposition: Pending cardiac catheterization in AM. I discussed the diagnosis and plan of care with the patient at the bedside. I also spoke with the patient's daughter Mandeep over the phone. Moderate level of MDM based on addressing above issues. This documentation was transcribed using voice recognition software. Several attempts were made to ensure accuracy. However inadvertent computerized transition of care specialist errors may be present. Nahid Serrato. Hospitalist. [...] deep vein thrombosis (DVT) prophylaxis (Z79.899: Other care home (current) drug therapy) Urinary retention (R33.9: Retention [...] deep vein thrombosis (DVT) prophylaxis (Z79.899: Other care home (current) drug therapy) Urinary retention (R33.9: Retention of urine, unspecified) Extracted from: Title:Urology Consult and H&P 2 Author:Cody LEO MD Date:07/03/23 Impression and Plan Diagnosis Atrial fibrillation with RVR (LRY70-ZZ I48.91, Discharge, Medical). Constipation (TZG64-EE K59.00, Discharge, Medical). Other urethral stricture, female (AZU55-WA N35.82, Discharge, Medical). Urinary retention (PEX63-WP R33.9, Working, Medical). Course: Worsening, Overall this [...] I ordered echocardiogram. Ordered: Echo Transthoracic Complete [facility] Care/Day Moderate 35 Minutes 41936 2. Elevated troponin (R79.89: Other specified abnormal findings of blood chemistry) Secondary to type II non-ST segment elevation myocardial infarction from above. Echocardiogram ordered. Cardiology consult pending. Continue on aspirin. Ordered: Echo Transthoracic Complete [facility] Hospital Care/Day Moderate 35 Minutes 02164 3. Urinary hesitancy (R39.11: Hesitancy of micturition) Secondary to urethral stricture. Patient is status post Robles catheter placement for urinary retention. She will follow-up with urologist as outpatient. Ordered: [facility] Hospital Care/Day Moderate 35 Minutes 61594 4. Constipation (K59.00: Constipation, unspecified) Started patient on MiraLAX and lactulose. Ordered: lactulose, 20 gram = 30 mL, Syrup, Oral, Once, Stop date 07/03/23 12:00:00 EST, Routine, Start date 07/03/23 12:00:00 EST, 07/03/23 12:00:00 EST polyethylene glycol 3350, 17 gram = 1 EA, Powder-Recon, Oral, Daily, Routine, Start date 07/03/23 12:00:00 EST, 07/03/23 12:00:[address] [facility] Care/Day Moderate 35 Minutes 33603 5. Other urethral stricture, female (N35.82: Other urethral stricture, female) Resulting in urinary retention. Patient is status post Robles catheter during this admission. Gets dilation of the ureter every 6 months. Urology consult pending. 6. 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 Disposition: Pending echocardiogram, cardiology and urology consult. I discussed the diagnosis and plan of care with the patient at the bedside. Moderate level of MDM based on addressing above issues. This documentation was transcribed using voice recognition software. Several attempts were made to ensure accuracy. However inadvertent computerized transition of care specialist errors may be present. Nahid Serrato. Hospitalist. [...] deep vein thrombosis (DVT) prophylaxis (Z79.899: Other care home (current) drug therapy) SCD, enoxaparin Orders: acetaminophen, [...] Date:11/22/2023 01:00:00 PM Scheduled Provider:Micheline BROOKS MD Location:Critical access hospital Appointment Type:URO Office Visit Future Scheduled Tests Laboratory* Basic Metabolic Panel 07/12/23 * Digoxin Level 07/12/23 [facility]11-22-2023 NoteCRM entered the room to discuss dc [...] transport. Plan now to stay, per Dr KahnFort Hamilton HospitalComment on above:Result Comment: Electronically Signed By: Margaret Grimm\.br\Date and Time Signed: 07/05/23 15:06 [id number] Evaluation + Plan noteExtracted from: Title:Procedure Note [...] Date:11/22/2023 01:00:00 PM Scheduled Provider:Micheline BROOKS MD Location:Critical access hospital Appointment Type:URO Office Visit Future Scheduled Tests Laboratory* Basic Metabolic Panel 07/12/23 * Digoxin Level 07/12/23 [facility]11-22-2023 Hospital Discharge instructions Patient Education 07/05/2023 09:04:47 CV - Cardiovascular Discharge Instructions (Custom) [place], [place] CARDIOVASCULAR DISCHARGE INSTRUCTIONS Diet: Resume pre-procedure [...] hours post procedure: Actoplus MetGlucophageGlucophage XR GlucovanceAvandametFortamet Wbe-dwylfmfedBiybsxRhsl-xfccqadvt GlumetzaJanumetMetaglip RiometGlycomet *Minimal pain, soreness and/or discomfort [...] you are interested in smoking cessation, contact [facility] at [phone], ext. [phone]. In the event you are unable to reach your physician, please call [facility] at [phone] and the digital computer operator will assist you. Seek Immediate Medical Care for: Bleeding: Apply continuous pressure to the site and Call 911. Should the arm or leg become cold, numb, blue or white call your physician immediately. Signs of infection are redness, warmth, swelling, increased tenderness, colored drainage, fever or chills Chest pain Follow Up Care 07/02/2023 21:18:33 With:Johan HENRIQUEZ Address: [address] [place] [phone]- [phone] Business (1) When:2 weeks Comments:Call for followup appointment With:Peggy Nazario Address: [address] [place] [phone] Business (1) When:07/10/2023 13:00:00 With:Micheline BROOKS Address: [facility] [address] [place] [address] Business (1) When: Unknown Comments:Call for followup appointment re: the indwelling Robles catheter. [facility]11-21-2023 NoteCRM entered the room to discuss dc planning. PCP, DME and insurance discussed. Patient is alert andinvolved in plan of care. Contact information provided and whiteboard updated. Pt was seen by Cardstomarsha, pt will be dc'd on [employer]. CRM will pablo check and apply coupon if needed. Lucila Humphreys. Xavier coelho today. 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) Urinary retention (R33.9: Retention [...] tab(s), Oral, Daily Ativa (more content not included)...[facility] HospitalComment on above: Result Comment: Electronically Signed By: Shell MCMAHON, Eb Yeh\.br\Date and Time Signed: 07/03/23 21:35 [id number] NoteEchocardiology Procedure Exam Date/Time Accession # Ordering Echo Transthoracic 07/03/2023 13:36 EST [id number] Nahid SERRATO MD Complete CPT code 39296 [id number] Reason for Exam (Echo Transthoracic Complete) Congestive Heart Failure Report Version: 1 Study ID: [id number] [facility] [address] [place] [address] Adult Echocardiogram Report Name: HARJIT ASENCIO I Study Date: 07/03/2023, 1: 00 PM Patient Location: [address] [place] [address] : 1950 (MM/DD/YYYY) Gender: Female Age: 73 [...] Signed by: Eb Goff MD Transcribed by: [facility] Technologist: Hina [facility]11-20-2023 Note Chief Complaint Pt presents to ED [...] 22:10:00) Lymph Auto: 15.3 % (07/02/23 22:10:00) [place] Auto: 7.7 % (07/02/23 22:10:00) Eos Auto: 0 % (07/02/23 22:10:00) Basophil Auto: 0.3 % (07/02/23 22:10:00) Neutro Absolute: 4.7 E9/L (07/02/23 22:10:00) Lymph Absolute: 0.9 E9/L Low (07/02/23 22:10:00) [place] Absolute: 0.5 E9/L (07/02/23 22:10:00) Eos Absolute: [...] Trace2 Abnormal (07/02/23 22: (more content not included)...[facility] HospitalComment on above:Result Comment: Electronically Signed By: Noman PATTON DO\Date and Time Signed: 07/03/23 02:59 [id number] Hospital Discharge instructions Patient Education 07/01/2023 00:37:46 Abdominal Pain, Adult, Fbbe-xr-Wlvk Abdominal Pain, Adult Many things can cause belly (abdominal) pain. Most times, belly pain is not dangerous. Many cases of belly pain can be watched and treated at home. Sometimes, though, belly pain is serious. Your doctor will try to find the cause of your belly pain. Follow these instructions at home: Medicines Take sjjp-jop-bwlxsar and prescription medicines only as told by [...] your belly pain for any changes. Take pmko-kln-cedbyap and prescription medicines only as told by [...] provider. Document Revised: 12/09/2019 Document Reviewed: 12/09/2019 [employer] Patient Education 2022 [employer]. Follow Up Care 06/30/2023 18:51:38 With:Peggy Nazario Address: [address] [place] [phone] Business (1) When:07/04/2023 Comments:You can use the Bentyl, Zofran every 6 hours as needed for pain and nausea. Please follow-up with your primary care doctor next 2 to 3 days for further evaluation management. Please return to the ED for any new or worsening symptoms. [facility]11-17-2023 Evaluation + Plan noteExtracted from: Title:ED Note Author:Koby Masterson DO Date :06/30/23 Abdominal pain, acute (R10.9 : Unspecified abdominal pain) Orders: dicyclomine, 20 mg = 2 mL, Injection, IntraMuscular, Once, Stop date 06/30/23 20:58:00 EST, STAT, Start date 06/30/23 20:58:00 EST, 06/30/23 20:58:00 EST dicyclomine, 10 mg = 1 cap(s), Oral, QID, X 7 day(s), # 14 cap(s), Refills(s) 0, Pharmacy: [id number], 165, cm, 06/30/23 19:37:00 EST, Height/Length Dosing, [...] q8hr, # 12 tab(s), Refills(s) 0, Pharmacy: [facility] #[id number], 165, cm, 06/30/23 19:37:00 EST, Height/Length Dosing, 55.7, kg, 06/30/23 19:37:00 EST, Weight Dosing Automated Diff Basic Metabolic Panel CBC w/ Auto Diff CT Abdomen/Pelvis w/o Contrast eGFR Extra Blue Tube Hepatic Function Panel Lipase Level UA With Cult Reflex Future Appointments Appointment Date:11/22/2023 01:00:00 PM Scheduled Provider:Micheline BROOKS MD [facility] Appointment Type:URO Office Visit [facility]09-13-2023 Hospital Discharge instructions Patient Education 04/26/2023 16:09:37 [...] symptoms are. Treatment may include: Using an ixhg-cuu-sqhpgto vaginal lubricant before sex. Using a long-acting [...] Follow these instructions at home: Medicines Take arof-sxf-cttludx and prescription medicines only as told by your health care provider. Do not use herbal or alternative medicines unless your health care provider says that you can. Use xums-ara-jlndeou creams, lubricants, or moisturizers for dryness only [...] provider. Document Revised: 01/28/2021 Document Reviewed: 01/28/2021 [employer] Patient Education 2022 [employer]. Follow Up Care 10/25/2022 10:34:06 With:CECILIA MCMAHON, Micheline Morgan, URL Address: [facility] [address] [place] [address]- When: Unknown [facility] Shira 08-22-2023 Hospital Discharge instructions Patient [...] Follow these instructions at home: Medicines Take oeme-uwt-bzpsilg and prescription medicines only as told by [...] Watch your condition for any changes. Take edmr-xbt-ltvdblu and prescription medicines only as told by [...] provider. Document Revised: 09/18/2020 Document Reviewed: 12/09/2019 [employer] Patient Education 2022 [employer]. Follow Up Care 04/04/2023 13:51:29 With:Peggy Nazario Address: [address] [place], [place] [phone] [facility] (1) When:04/07/2023 16:25:09 Comments:Call the [...] you develop any new or worsening symptoms. [facility]06-18-2023 Hospital Discharge instructions Patient Education 01/28/2023 23:28:19 RICE Therapy for Routine Care of Injuries, Qswz-qw-Zggq RICE Therapy for Routine Care of Injuries [...] provider. Document Revised: 05/20/2021 Document Reviewed: 05/20/2021 [employer] Patient Education 2022 [employer] 01/28/2023 23:28:19 Hand Contusion Hand Contusion [...] An elastic wrap to support your hand. Fkbb-uys-ipobqse medicines to control pain. Follow these instructions [...] sitting or lying down. General instructions Take fiak-leg-pgsufof and prescription medicines only as told by [...] provider. Document Revised: 11/18/2021 Document Reviewed: 11/18/2021 [employer] Patient Education 2022 [employer]. Follow Up Care 01/28/2023 21:23:51 With:Peggy Nazario Address: [address] [place] [phone] [facility] (1) When:01/31/2023 Comments:Follow-up with your primary care provider in 3 to 5 days. If symptoms worsen, do not improve, or new symptoms arise please report back to emergency department for further evaluation. [facility]06-17-2023 Evaluation + Plan noteExtracted from: Title:ED Note Author:Med Medeiros PA-C te:01/28/23 Contusion of left hand (S60. 222A: Contusion of left hand, initial encounter) Orders: XR Hand 3+ Views Left Future Appointments Appointment Date:04/26/2023 03:15:00 PM Scheduled Provider:Micheline BROOKS MD Location:Critical access hospital Appointment Type:URO Office Visit [facility]03-14-2023 Hospital Discharge instructions Patient Education 10/25/2022 10:27:36 [...] Urology [address] [place] [address]- Business (1) When:04/27/2023 10:27:19 [facility]07-21-2022 Hospital Discharge instructions Patient Education 03/03/2022 10:35:19 [...] reconstructed. Follow these instructions at home: Take fdkv-jcr-oeotcza and prescription medicines only as told by [...] 08/26/2016 Document Revised: 03/13/2019 Document Reviewed: 03/13/2019 [employer] Patient Education 2020 [employer]. Follow Up Care 02/28/2022 09:40:23 With:CARMINA GARRISON PA-C, URL Address: [address] [place] [address] When: Unknown [facility] [place]ira 07-05-2022 Hospital Discharge instructions Patient Education 02/15/2022 14:03:18 Contusion, Wifi-sx-Ykmg Contusion A contusion is a deep bruise. [...] sitting or lying down. General instructions Take gyyy-gcp-zcmzeog and prescription medicines only as told by [...] is also called RICE. Youmay be given fzdi-luv-goxyvwd medicines for pain. Contact a doctor if [...] 01/16/2009 Document Revised: 03/22/2019 Document Reviewed: 03/22/2019 [employer] Patient Education 2020 [employer]. Follow Up Care 02/15/2022 13:08:58 With:Aravind MCMAHON, KANA Saini Address: [address] [place], [place] [phone]- When:02/18/2022 [facility]05-13-2022 Hospital Discharge instructions Patient Education 12/24/2021 18:30:08 Chemical Conjunctivitis, Adult, Dsms-ip-Cznr Chemical Conjunctivitis, Adult Chemical conjunctivitis is irritation [...] cannot use soap and water use hand machine sand mixer. Contact a doctor if: Your symptoms do [...] 07/31/2006 Document Revised: 11/20/2019 Document Reviewed: 10/06/2017 [employer] Patient Education 2020 [employer]. Follow Up Care 12/24/2021 17:34:06 With:Krysta Church Address: [address] [place] [address], [address] [place] [phone] Business (1) When:12/27/2021 18:21:21 With:Peggy Nazario Address: [address] [place], [place] [phone]- Business (1) When:Within 3 Day(s) [facility] Future Appointments Appointment Date:03/02/2022 02:00:00 PM Scheduled Provider:Micheline BROOKS MD Location:Critical access hospital Appointment Type:URO Office Visit Future Scheduled Tests Laboratory* COVID-19 ([facility] 08/12/21 [facility] Future Appointments Appointment Date:02/28/2022 09:30:00 AM Scheduled Provider:[facility]heta [facility] New Patient (FT) Appointment Date:03/02/2022 02:00:00 PM Scheduled Provider:Micheline BROOKS MD Location:Critical access hospital Appointment Type:URO Office Visit Future Scheduled Tests Laboratory* COVID-19 ([facility] 08/12/21 [facility] Future Appointments Appointment Date:04/04/2022 10:00:00 AM Scheduled Provider:Yennifer Iraheta MD Location[facility] Appointment Type:Vascular New Patient (FT) Future Scheduled Tests Laboratory* COVID-19 ([facility]) 08/12/21 [facility] Evaluation + Plan note Future Appointments Appointment Date:07/25/2022 09:15:00 AM Scheduled Provider:Yennifer Iraheta MD [facility] Type:Vascular Follow Up (FT) Appointment Date:09/26/2022 02:45:00 PM Scheduled Provider:Micheline BROOKS MD [facility] Appointment Type:URO Office Visit Future Scheduled Tests Laboratory* COVID-19 ([facility]) 08/12/21 Radiology* US LE Venous Duplex Insufficiency Bilat 06/14/22 [facility] Future Appointments Appointment Date:07/25/2022 09:15:00 AM Scheduled Provider:Yennifer Iraheta [facility] Type:Vascular Follow Up (FT) Appointment Date:09/26/2022 02:45:00 PM Scheduled Provider:Micheline BROOKS MD [facility] Appointment Type:URO Office Visit Future Scheduled Tests Laboratory* COVID-19 ([facility]) 08/12/21 [facility] Future Appointments Appointment Date:09/26/2022 02:45:00 PM Scheduled Provider:[facility]KS [facility]O Office Visit [facility] Future Appointments Appointment Date:12/05/2022 03:00:00 PM Scheduled Provider: [facility] Type:MA Screen (FT) Appointment Date:04/26/2023 03:15:00 PM Scheduled Provider:Micheline BROOKS MD Location:Critical access hospital Appointment Type:URO Office Visit Future Scheduled Tests Radiology* MA Mamm Screen w/CAD if perf and 3D Dawson 12/05/22 [facility] Future Appointments Appointment Date:04/26/2023 03:15:00 PM Scheduled Provider:Micheline BROOKS MD Location:[facility] Appointment Type:URO Office Visit [facility] Future Appointments Appointment Date:07/19/2023 03:00:00 PM Scheduled Provider:Micheline BROOKS MD Location:Critical access hospital Appointment Type:URO Office Visit Appointment Date:07/20/2023 10:30:00 AM Scheduled Provider:Johan HENRIQUEZ MD [facility] Type:Cardiology Inpatient Follow Up (FT) Appointment Date:11/22/2023 01:00:00 PM Scheduled Provider:Micheline BROOKS MD Location:Critical access hospital Appointment Type:URO Office Visit Future Scheduled Tests Laboratory* Basic Metabolic Panel 07/12/23 * Digoxin Level 07/12/23 [facility] Future Appointments Appointment Date:01/24/2024 02:30:00 PM Scheduled Provider:Micheline BROOKS MD Location:Critical access hospital Appointment Type:URO Office Visit Future Scheduled Tests Laboratory* Basic Metabolic Panel 07/12/23 * Digoxin Level 07/12/23 [facility] Future Appointments Appointment Date:01/24/2024 02:30:00 PM Scheduled Provider:Micheline BROOKS MD Location:Critical access hospital Appointment Type:URO Office Visit Diagnostic Tests Pending * Urine Culture 11/22/23 Future Scheduled Tests Laboratory* Basic Metabolic Panel 07/12/23 * Digoxin Level 07/12/23 [facility]* Diagnosis Anxiety Anxiety state, unspecified documented [...] cardiomyopathies Persistent atrial fibrillation (HCC) Atrial fibrillation terminal carman 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 Long-term (current) use of 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s History of cardioversion Personal history of surgery to heart and great vessels, presenting hazards to health Primary hypertension Unspecified essential hypertension [facility] Mitral valve insufficiency, unspecified etiology- Primary Anxiety Anxiety state, unspecified Paroxysmal atrial fibrillation (CMS/HCC) Atrial fibrillation Other cardiomyopathy (CMS/HCC) Hospital discharge follow-up Other follow-up examination Other thrombophilia (D68.69) Atherosclerosis of aorta (I70.0) Atherosclerosis of aorta [facility] in [facility]* Diagnosis Feeling of incomplete bladder emptying- Primary Incomplete bladder emptying Stricture of female urethra, unspecified stricture type Severe protein-calorie malnutrition (HCC) Other severe protein-calorie malnutrition [facility]* Diagnosis Screening for genitourinary condition Screening for other and unspecified genitourinary condition [facility]* Diagnosis Feeling of incomplete bladder emptying- Primary Incomplete bladder emptying Stricture of female urethra, unspecified stricture type Severe protein-calorie malnutrition (HCC) Other severe protein-calorie malnutrition [facility]* Diagnosis Mitral valve regurgitation due to cardiomyopathy (HCC)- Primary [facility]* Diagnosis Non-rheumatic mitral regurgitation Mitral valve disorders Persistent atrial fibrillation (HCC) Atrial fibrillation Non-ischemic cardiomyopathy (HCC) Other primary cardiomyopathies Chronic HFrEF (heart failure with reduced ejection fraction) (HCC) [facility]* Diagnosis Stricture of female urethra, unspecified stricture type- Primary Feeling of incomplete bladder emptying Incomplete bladder emptying [facility]* Diagnosis Screening for genitourinary condition Screening for other and unspecified genitourinary condition [facility] Diagnosis Feeling of incomplete bladder emptying- Primary Incomplete bladder emptying Stricture of female urethra, unspecified stricture type [facility]* Diagnosis Dysuria documented in this encounter [facility]* Diagnosis Anxiety Anxiety state, unspecified documented in this encounter [facility]* Diagnosis Postmenopausal atrophic vaginitis Breast cancer screening by mammogram documented in this encounter [facility]* Diagnosis Dysuria- Primary Urinary frequency Atrial fibrillation, persistent (HCC) (CMS/HCC) terminal carman 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 BMI 22.0-22.9, adult [...] agoraphobia Acute cough- Primary Hematuria, unspecified type half-way 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 Atrial fibrillation, persistent [...] cough- Primary Bruising Contusion of unspecified site half-way 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 Atrial fibrillation, persistent [...] agoraphobia Atrial fibrillation, persistent (HCC) (CMS/HCC)- Primary half-way 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 Primary hypertension (CMS/HCC) [...] agoraphobia Atrial fibrillation, persistent (HCC) (CMS/HCC)- Primary half-way 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 Mitral valve regurgitation [...] Narrative No data available for this section [facility] Discharge instructions No data available for this section [facility] No data available for this section [facility] CenterReason for referral (narrative) , Mitral Valve and Tricuspid Valve Repair. Referred by: Johan HENRIQUEZ MD [facility] (narrative)* Outpatient Procedure (Routine) - Authorized Specialty Diagnoses / Procedures Referred By Marietta aguiar Referred To Contact [facility] Diagnoses Non-rheumatic mitral regurgitation Persistent atrial fibrillation (HCC) Non-ischemic cardiomyopathy (HCC) Chronic HFrEF (heart failure with reduced ejection fraction) (HCC) Procedures ECG COMPLETE ECG ROUTINE ECG W/LEAST 12 LDS W/I&R Ana Rivas APRN.CNP [id number] [place] [address] Referral ID Status Reason Start Date Expiration Date Visits Requested Visits Authorized [id number] Authorized Auto-Generat ed Referral 11/08/2023 09/25/2024 1 1 * Transition of Care (Routine) - Ref Not Required Specialty Diagnoses / Procedures Referred By Marietta aguiar Referred To Contact Diagnoses Non-rheumatic mitral regurgitation Persistent atrial fibrillation (HCC) Non-ischemic cardiomyopathy (HCC) Chronic HFrEF (heart failure with reduced ejection fraction) (HCC) Procedures CARDIOVASCULAR MEDICINE OP FOLLOW UP APPT ORDER Ana Rivas APRN.CNP [address] [place] [address] Referral ID Status Reason Start Date Expiration Date Visits Requested Visits Authorized [id number] Ref Not Required PCP Requested Referral 09/26/2023 09/25/2024 1 1 * Outpatient Procedure (Routine) - Authorized Specialty Diagnoses / Procedures [facility]erred To Contact [facility] [place] Diagnoses Non-rheumatic mitral regurgitation Persistent atrial fibrillation (HCC) Non-ischemic cardiomyopathy (HCC) Chronic HFrEF (heart failure with reduced ejection fraction) (HCC) Procedures ECG COMPLETE ECG ROUTINE ECG W/LEAST 12 LDS W/I&R Ana Rivas APRN.CNP [address] [place] [address] [facility] [address] [address] Referral ID Status Reason Start Date Expiration Date Visits Requested Visits Authorized [id number] Authorized Auto-Generat ed Referral 10/25/2023 09/25/2024 1 1 * Transition of Care (Routine) - Ref Not Required Specialty Diagnoses / Procedures Referred By Contac t Referred To Contact Diagnoses Non-rheumatic mitral regurgitation Persistent atrial fibrillation (HCC) Non-ischemic cardiomyopathy (HCC) Chronic HFrEF (heart failure with reduced ejection fraction) (HCC) Procedures CARDIOVASCULAR MEDICINE OP FOLLOW UP APPT ORDER Ana Rivas APRN.CNP [address] [place] [address] Referral ID Status Reason Start Date Expiration Date Visits Requested Visits Authorized [id number] Ref Not Required PCP Requested Referral 09/26/2023 09/25/2024 1 1 * Outpatient Procedure (Routine) - Authorized Specialty Diagnoses / Procedures Referred By Contac t Referred To Contact [facility] [place] Diagnoses Non-rheumatic mitral regurgitation Persistent atrial fibrillation (HCC) Non-ischemic cardiomyopathy (HCC) Chronic HFrEF (heart failure with reduced ejection fraction) (HCC) Procedures ECG COMPLETE ECG ROUTINE ECG W/LEAST 12 LDS W/I&R Ana Rivas APRN.CNP [address] [place] [address] [address] Referral ID Status Reason Start Date Expiration Date Visits Requested Visits Authorized [id number] Authorized Auto-Generat ed Referral 10/10/2023 09/25/2024 1 1 * Transition of Care (Routine) - Ref Not Required Specialty Diagnoses / Procedures Referred By Contac t Referred To Contact Diagnoses Non-rheumatic mitral regurgitation Persistent atrial fibrillation (HCC) Non-ischemic cardiomyopathy (HCC) Chronic HFrEF (heart failure with reduced ejection fraction) (HCC) Procedures CARDIOVASCULAR MEDICINE OP FOLLOW UP APPT ORDER Ana Rivas APRN.CNP [address] [place] [address] Referral ID Status Reason Start Date Expiration Date Visits Requested Visits Authorized [id number] Ref Not Required PCP Requested Referral 09/26/2023 09/25/2024 1 1 [facility] for referral (narrative)* Consultation (Routine) - Pending Review Specialty Diagnoses / Procedures Referred By Contac t Referred To Contact Cardiothoracic Surgery Diagnoses Mitral valve insufficiency, unspecified etiology Procedures HI OFFICE/OUTPATIENT [facility] 60 MINUTES [place] [address] Referral ID Status Reason Start Date Expiration Date Visits Requested Visits Authorized [id number] Pending Review Specialty Services Required 09/18/2023 03/16/2024 [...] section and content) DATE CREATED AUTHOR 08/23/2021 [facility] dical Specialist DATE CREATED AUTHOR AUTHOR'S ORGANIZ ATION 06/05/2024 [facility] DATE CREATED AUTHOR AUTHOR'S ORGANIZ ATION 06/11/2024 Yen Hernandez [facility] DATE CREATED AUTHOR AUTHOR'S ORGANIZ ATION 06/29/2024 [facility] DATE CREATED AUTHOR AUTHOR'S ORGANIZ ATION 11/22/2024 [facility] DATE CREATED AUTHOR AUTHOR'S ORGANIZ ATION 04/04/2025 [facility] DATE CREATED AUTHOR AUTHOR'S ORGANIZ ATION 04/08/2025 [facility] dical Specialists EPIC Care Team (unrecognized sect ion and content) Meat Apprentice Relationship Specialty Start Date End Date Peggy Nazario [address] [place] [address] PCP - General Family Medicine 07/24/23 Micheline Sorto MD [address] [place] [address] Surgeon Cardiac Surg 07/24/23 Johan Henriquez MD [facility] [address] [address] Last Cleaner Cardiology 07/24/23 Meat Apprentice Relationship Specialty Start Date End Date Pegyg Nazario MD [address] [place] [address] PCP - ACO Reach 5/25/23 Peggy Nazario MD [address] [place] [address] PCP - General Family Medicine 02/08/23 Meat Apprentice Relationship Specialty Start Date End Date Peggy Nazario MD [address] [place] [address] PCP - ACO Reach 01/05/23 Peggy Nazario MD [address] [place] [address] PCP - General Family Medicine 02/08/23 Meat Apprentice Relationship Specialty Start Date End Date Peggy Nazario [address] [place] [address] PCP - General Family Medicine 07/24/23 Micheline Sorto MD [address] [place] [address] Surgeon Cardiac Surg 07/24/23 Johan Henriquez MD [facility] [address] [place] [address] Last Cleaner Cardiology 07/24/23 Alea Harley MD [address] [place] [address] Cardiology 07/28/23 Alea Harley MD [address] [place] [address] Primary Staff Physician Cardiology 08/23/23 Meat Apprentice Relationship Specialty Start Date End Date Peggy Nazario [address] [place] [address] PCP - General Family Medicine 07/24/23 Micheline Sorto MD [address] [place] [address] Surgeon Cardiac Surg 07/24/23 Johan Henriquez MD [address] [place] [address] Last Cleaner Cardiology 07/24/23 Alea Harley MD [address] [place] [address] Cardiology 07/28/23 Alea Harley MD [address] [place] [address] Primary Staff Physician Cardiology 08/23/23 Meat Apprentice Relationship Specialty Start Date End Date Peggy Nazario [address] [place] [address] PCP - General Family Medicine 07/24/23 Micheline Sorto MD [address] [place] [address] Surgeon Cardiac Surg 07/24/23 Johan Henriquez MD [address] [place] [address] Last Cleaner Cardiology 07/24/23 Alea Harley MD [address] [place] [address] Cardiology 07/28/23 Alea Harley MD [address] [place] [address] Primary Staff Physician Cardiology 08/23/23 Meat Apprentice Relationship Specialty Start Date End Date Peggy Nazario MD [address] [place] [address] PCP - ACO Reach 01/05/23 Peggy Nazario MD [address] [place] [address] PCP - General Family Medicine 02/08/23 Meat Apprentice Relationship Specialty Start Date End Date Peggy Nazario [address] [place] [place] [address] PCP - General Family Medicine 07/24/23 Micheline Sorto MD [address] [place] [id number] Surgeon Cardiac Surg 07/24/23 Johan Henriquez MD [facility] [address] [place] [address] Last Cleaner Cardiology 07/24/23 Alea Harley MD [address] [place] [id number] Cardiology 07/28/23 Alea Harley MD [address] [place] [address] Primary Staff Physician Cardiology 08/23/23 Meat Apprentice Relationship Specialty Start Date End Date Peggy Nazario MD [address] [place] [address] PCP - ACO Reach 01/05/23 Peggy Nazario MD [address] [place] [address] PCP - General Family Medicine 02/08/23 Meat Apprentice Relationship Specialty Start Date End Date Peggy Nazario [address] [place] [address] PCP - General Family Medicine 07/24/23 Micheline Sorto MD [address] [place] [address] Surgeon Cardiac Surg 07/24/23 Johan Henriquez MD [address] [place] [address] Last Cleaner Cardiology 07/24/23 Alea Harley MD [address] [place] [address] Cardiology 07/28/23 Alea Harley MD [address] [place] [address] Primary Staff Physician Cardiology 08/23/23 Meat Apprentice Relationship Specialty Start Date End Date Peggy Nazario [address] [place] [address] PCP - General Family Medicine 07/24/23 Micheline Sorto MD [address] [place] [address] Surgeon Cardiac Surg 07/24/23 Johan Henriquez MD [address] [place] [address] Last Cleaner Cardiology 07/24/23 Alea Harley MD [address] [place] [address] Cardiology 07/28/23 Alea Harley MD [address] [place] [address] Primary Staff Physician Cardiology 08/23/23 Meat Apprentice Relationship Specialty Start Date End Date Peggy Nazario [address] [place] [place] [address] PCP - General Family Medicine 07/24/23 Micheline Sorto MD [address] [place] [address] Surgeon Cardiac Surg 07/24/23 Johan Henriquez MD [facility] [address] [place] [address] Last Cleaner Cardiology 07/24/23 Alea Harley MD [address] [place] [address] Cardiology 07/28/23 Alea Harley MD [address] [place] [address] Primary Staff Physician Cardiology 08/23/23 Meat Apprentice Relationship Specialty Start Date End Date Peggy Nazario [address] [place] [place] [address] PCP - General Family Medicine 07/24/23 Micheline Sorto MD [address] [place] [address] Surgeon Cardiac Surg 07/24/23 Johan Henriquez MD [address] [place] [address] Last Cleaner Cardiology 07/24/23 Alea Harley MD [address] [place] [address] Cardiology 07/28/23 Alea Harley MD [address] [place] [address] Primary Staff Physician Cardiology 08/23/23 Meat Apprentice Relationship Specialty Start Date End Date Peggy Nazario [address] [place] [address] [place] [address] PCP - General Family Medicine 07/24/23 Micheline Sorto MD [address] [address] Surgeon Cardiac Surg 07/24/23 Johan Henriquez MD [address] [place] [address] Last Cleaner Cardiology 07/24/23 Alea Harley MD [address] [place] [address] Cardiology 07/28/23 Alea Harley MD [address] [place] [address] Primary Staff Physician Cardiology 08/23/23 Meat Apprentice Relationship Specialty Start Date End Date Peggy Nazario [address] [place] [address] PCP - General Family Medicine 07/24/23 Micheline Sorto MD [address] [place] [address] Surgeon Cardiac Surg 07/24/23 Johan Henriquez MD [address] [place] [address] Last Cleaner Cardiology 07/24/23 Alea Harley MD [address] [place] [address] Cardiology 07/28/23 Alea Harley MD [address] [place] [address] Primary Staff Physician Cardiology 08/23/23 Meat Apprentice Relationship Specialty Start Date End Date Peggy Nazario [address] [place] [address] PCP - General Family Medicine 07/24/23 Micheline Sorto MD [address] [place] [address] Surgeon Cardiac Surg 07/24/23 Johan Henriquez MD [address] [place] [address] Last Cleaner Cardiology 07/24/23 Alea Harley MD [address] [place] [address] Cardiology 07/28/23 Alea Harley MD [address] [place] [address] Primary Staff Physician Cardiology 08/23/23 Meat Apprentice Relationship Specialty Start Date End Date Peggy Nazario [address] [place] [address] PCP - General Family Medicine 07/24/23 Micheline Sorto MD [address] [place] [address] Surgeon Cardiac Surg 07/24/23 Johan Henriquez MD [facility] [address] [place] [address] Last Cleaner Cardiology 07/24/23 Alea Harley MD [address] [place] [address] Cardiology 07/28/23 Alea Harley MD [address] [place] [address] Primary Staff Physician Cardiology 08/23/23 Meat Apprentice Relationship Specialty Start Date End Date Peggy Nazario MD [address] [place] [address] PCP - ACO Reach 01/05/23 Hannah Brian MD [address] [place] [address] PCP - General Family Medicine 11/03/23 Meat Apprentice Relationship Specialty Start Date End Date Peggy Nazario MD [address] [place] [address] PCP - ACO Reach 01/05/23 Hannah Brian MD [address] [place] [address] PCP - General Family Medicine 11/03/23 Meat Apprentice Relationship Specialty Start Date End Date Peggy Nazario MD [address] [place] [address] PCP - ACO Reach 01/05/23 Hannah Brian MD [address] [place] [address] PCP - General Family Medicine 11/03/23 Meat Apprentice Relationship Specialty Start Date End Date Peggy Nazario MD [address] [place] [address] PCP - ACO Reach 01/05/23 Hannah Brian MD [address] [place] [address] PCP - General Family Medicine 11/03/23 Meat Apprentice Relationship Specialty Start Date End Date Peggy Nazario MD [address] [place] [address] PCP - ACO Reach 01/05/23 Hannah Brian MD [address] [place] [address] PCP - General Family Medicine 11/03/23 Meat Apprentice Relationship Specialty Start Date End Date Peggy Nazario MD [address] [place] [address] PCP - ACO Reach 01/05/23 Hannah Brian MD [address] [place] [address] PCP - General Family Medicine 11/03/23 Meat Apprentice Relationship Specialty Start Date End Date Peggy Nazario MD [address] [place] [address] PCP - ACO Reach 01/05/23 Hannah Brian MD [address] [place] [address] PCP - General Family Medicine 11/03/23 Meat Apprentice Relationship Specialty Start Date End Date Peggy Nazario MD [address] [place] [address] PCP - ACO Reach 01/05/23 Peggy Nazario MD [address] [place] [address] PCP - General Family Medicine 02/08/23 11/02/23 Meat Apprentice Relationship Specialty Start Date End Date Peggy Nazario MD [address] [place] [address] PCP - ACO Reach 01/05/23 Hannah Brian MD [address] [place] [address] PCP - General Family Medicine 11/03/23 Meat Apprentice Relationship Specialty Start Date End Date Peggy Nazario MD [address] [place] [address] PCP - ACO Reach 01/05/23 Hannah Brian MD [address] [place] [address] PCP - General Family Medicine 11/03/23 Meat Apprentice Relationship Specialty Start Date End Date Peggy Nazario MD [address] [place] [address] PCP - ACO Reach 01/05/23 Hannah Brian MD [address] [place] [address] PCP - General Family Medicine 11/03/23 Meat Apprentice Relationship Specialty Start Date End Date Peggy Nazario MD [address] [place] [address] PCP - ACO Reach 01/05/23 Hannah Brian MD [address] [place] [address] PCP - General Family Medicine 11/03/23 Meat Apprentice Relationship Specialty Start Date End Date Peggy Nazario MD [address] [place] [address] PCP - ACO Reach 01/05/23 Hannah Brian MD [address] [place] [address] PCP - General Family Medicine 11/03/23 Meat Apprentice Relationship Specialty Start Date End Date Peggy Nazario MD [address] [place] [address] PCP - ACO Reach 01/05/23 Hannah Brian MD [address] [place] [address] PCP - General Family Medicine 11/03/23 Meat Apprentice Relationship Specialty Start Date End Date Peggy Nazario MD [address] [place] [address] PCP - ACO Reach 01/05/23 Hannah Brian MD [address] [place] [address] PCP - General Family Medicine 11/03/23 Meat Apprentice Relationship Specialty Start Date End Date Peggy Nazario MD [address] [place] [address] PCP - ACO Reach 01/05/23 Hannah Brian MD [address] [place] [address] PCP - General Family Medicine 11/03/23 Meat Apprentice Relationship Specialty Start Date End Date Peggy Nazario MD [address] [place] [address] PCP - ACO Reach 01/05/23 Hannah Brian MD [address] [place] [address] PCP - General Family Medicine 11/03/23 Meat Apprentice Relationship Specialty Start Date End Date Peggy Nazario MD [address] [place] [address] PCP - ACO Reach 01/05/23 Hannah Brian MD [address] [place] [address] PCP - General Family Medicine 11/03/23 Source Comments (unrecognize d section and content) In the event this informatio n is protected by the Federal Confidentiality of Alcohol and Drug Abuse Patient Records regulations: The Federal rules restrict any use of the information to criminally investigate or prosecute any alcohol or drug abuse patient.[facility] the event this information is protected by the Federal Confidentiality of Alcohol and Drug Abuse Patient Records regulations: The Federal rules restrict any use of the information to criminally investigate or prosecute any alcohol or drug abuse patient.[facility] Hospital[facility] the event this information is protected by the Federal Confidentiality of Alcohol and Drug Abuse Patient Records regulations: The Federal rules restrict any use of the information to criminally investigate or prosecute any alcohol or drug abuse patient.[facility] the event this information is protected by the Federal Confidentiality of Alcohol and Drug Abuse Patient Records regulations: The Federal rules restrict any use of the information to criminally investigate or prosecute any alcohol or drug abuse patient.[facility] Hospital[facility] the event this information is protected by the Federal Confidentiality of Alcohol and Drug Abuse Patient Records regulations: The Federal rules restrict any use of the information to criminally investigate or prosecute any alcohol or drug abuse patient.[facility] Hospital[facility] the event this information is protected by the Federal Confidentiality of Alcohol and Drug Abuse Patient Records regulations: The Federal rules restrict any use of the information to criminally investigate or prosecute any alcohol or drug abuse patient.[facility] Hospital[facility] the event this information is protected by the Federal Confidentiality of Alcohol and Drug Abuse Patient Records regulations: The Federal rules restrict any use of the information to criminally investigate or prosecute any alcohol or drug abuse patient.[facility] HospitalIn the event this information is protected by the Federal Confidentiality of Alcohol and Drug Abuse Patient Records regulations: The Federal rules restrict any use of the information to criminally investigate or prosecute any alcohol or drug abuse patient.[facility] Hospital[facility] the event this information is protected by the Federal Confidentiality of Alcohol and Drug Abuse Patient Records regulations: The Federal rules restrict any use of the information to criminally investigate or prosecute any alcohol or drug abuse patient.[facility] Hospital[facility] the event this information is protected by the Federal Confidentiality of Alcohol and Drug Abuse Patient Records regulations: The Federal rules restrict any use of the information to criminally investigate or prosecute any alcohol or drug abuse patient.[facility] HospitalIn the event this information is protected by the Federal Confidentiality of Alcohol and Drug Abuse Patient Records regulations: The Federal rules restrict any use of the information to criminally investigate or prosecute any alcohol or drug abuse patient.[facility] HospitalIn the event this information is protected by the Federal Confidentiality of Alcohol and Drug Abuse Patient Records regulations: The Federal rules restrict any use of the information to criminally investigate or prosecute any alcohol or drug abuse patient.[facility] HospitalIn the event this information is protected by the Federal Confidentiality of Alcohol and Drug Abuse Patient Records regulations: The Federal rules restrict any use of the information to criminally investigate or prosecute any alcohol or drug abuse patient.[facility] HospitalIn the event this information is protected by the Federal Confidentiality of Alcohol and Drug Abuse Patient Records regulations: The Federal rules restrict any use of the information to criminally investigate or prosecute any alcohol or drug abuse patient.[facility] HospitalIn the event this information is protected by the Federal Confidentiality of Alcohol and Drug Abuse Patient Records regulations: The Federal rules restrict any use of the information to criminally investigate or prosecute any alcohol or drug abuse patient.[facility] Reason for Visit (unrecogniz ed section [...] cardiomyopathy (HCC) Decompensated heart failure (HCC) Procedures [address] [place] [address] IP/OBS CARE HIGH MDM 75 MINUTES MEDICATION MANAGEMENT CONSULTS [facility] Main [address] [place] [address] Referral ID Status Reason Start Date Expiration Date Visits Re quested Visits Authorized [id number] 1 Reason Comments Refill Request Reason Comments Follow Up Reason Comments Cystoscopy-1 Patient Education Reason Comments Gynecologic Exam Medicare off year. P: MIR SHEFFIELD 1986HRT: NoneLast pap 07-24-23 neg.Last mammogram 12-05-22 [facility] [place] Not sure when she can do it [...] BE BASED ON THE PRIMARY CLINICAL RECORDS. [employer] provides no warranty or guarantee of the accuracy or completeness of information in this document.
[2025-04-10 16:50] VITALS: BP 162/99; PULSE 71; TEMP 36.6; O2SAT 98; BMI 22.6
--- NOTE | 2025-04-10 17:18 | PC.NURSE ---
Patient reports having blood in urine at home. Gives urine sample with no visible blood present.
[2025-04-10 17:35] LABS: Glucose Urine UA NEGATIVE (NEGATIVE)
[2025-04-10 17:49] LABS: Cast Seen? SEEN #/LPF (NONE SEEN); Crystals Seen? None Seen #/HPF (None Seen); Urine Culture Indicated NO
[2025-04-10] MEDS: PHENAZOPYRIDINE 100 MG TABLET PO (17:57)
--- NOTE | 2025-04-10 19:00 | ED.FEMALEGU1 ---
HPI - Female Genitourinary General Chief complaint: Urogenital-Female Stated complaint: BLOOD IN URINE, ABDOMINAL PRESSURE Time Seen by Provider: 04/10/25 16:44 Source: patient Mode of arrival: walk-in Limitations: no limitations History of Present Illness HPI Narrative: 75-year-old female presents to the ER for the second time today complaining of bladder spasms suprapubic pain. She was seen earlier this morning and had a CT which was normal and some hematuria. Patient is on Eliquis. She is neurovascularly intact normal vital signs other than an blood pressure 162/99. Patient has normal bowel movements. Labs were reassuring this morning. She states she feels like she is unable to empty her bladder and she has blood in her urine still. Apparently she was placed on Cipro and Flagyl by her PCP prior to today and it was stopped during her visit earlier today. She was having some stomach discomfort with it. Please see earlier chart for details. Not having nausea or vomiting tonight. She is afebrile. Alert and oriented. No chest pain or shortness of breath. Related Data Home Medications ?Medication ?Instructions ?Recorded ?Confirmed atorvastatin 40 mg tablet 40 mg PO .once daily 10/15/23 04/10/25 lorazepam 0.5 mg tablet 0.5 mg PO TID PRN anxiety 10/15/23 04/10/25 spironolactone 25 mg tablet 12.5 mg PO .once daily 10/15/23 04/10/25 apixaban 5 mg tablet (Eliquis) 5 mg PO BID 06/01/24 04/10/25 carvedilol 6.25 mg tablet 6.25 mg PO BID 01/19/25 04/10/25 Previous Rx's ?Medication ?Instructions ?Recorded dicyclomine 20 mg tablet 20 mg PO BID PRN abdominal pain 04/10/25 #14 tabs ondansetron 4 mg disintegrating 4 mg PO Q8H PRN nausea and 04/10/25 tablet vomiting 24 hours #3 tabs pantoprazole 40 mg tablet,delayed 40 mg PO DAILY #30 tabs 04/10/25 release (Protonix) phenazopyridine 200 mg tablet 200 mg PO Q8H PRN pain 6 doses #6 04/10/25 (Pyridium) tabs Allergies Allergy/AdvReac Type Severity Reaction Status Date / Time meperidine (From Demerol) Allergy Intermediate Agitated Verified 04/10/25 16:50 PFSH PFSH Social History Smoking status: Former smoker Little interest or pleasure in doing things: not at all Feeling down, depressed, or hopeless: not at all Exam Constitutional Vital Signs, click to edit/add: Last Vital Signs Temp 98 F 04/10/25 16:50 Pulse 71 04/10/25 16:50 Resp 18 04/10/25 16:50 BP 162/99 H 04/10/25 16:50 Pulse Ox 98 04/10/25 16:50 O2 Del Method Room Air 04/10/25 16:50 Course Vital Signs Vital signs: Vital Signs Temperature 98 F 04/10/25 16:50 Pulse Rate 71 04/10/25 16:50 Respiratory Rate 18 04/10/25 16:50 Blood Pressure 162/99 H 04/10/25 16:50 Pulse Oximetry 98 04/10/25 16:50 Oxygen Delivery Method Room Air 04/10/25 16:50 Temperature 98 F 04/10/25 16:50 Pulse Rate 71 04/10/25 16:50 Respiratory Rate 18 04/10/25 16:50 Blood Pressure 162/99 H 04/10/25 16:50 Pulse Oximetry 98 04/10/25 16:50 Oxygen Delivery Method Room Air 04/10/25 16:50 MDM - Female Genitourinary Lab Data Labs: Lab Results 04/10/25 Range/Units 17:09 Urine Color Yellow (YELLOW) Urine Clarity Clear (CLEAR) Urine pH 6.5 (5.0-9.0) Ur Specific Malcolm 1.020 (1.005-1.025) Urine Protein 100 A (NEG/TRACE) mg/dL Urine Glucose (UA) Negative (NEGATIVE) mg/dL Urine Ketones Negative (NEGATIVE) mg/dL Urine Occult Blood Trace-i (NEGATIVE) Urine Nitrite Negative (NEGATIVE) Urine Bilirubin Negative (NEGATIVE) Urine Urobilinogen 0.2 (0.2-1.0) EU/dL Ur Leukocyte Esterase Trace A (NEGATIVE) Urine RBC 0-2 (0-2) #/HPF Urine WBC 2-5 A (NONE SEEN) #/HPF Ur Squamous Epith Cells Few A (NONE/RARE) #/LPF Urine Crystals None seen (None Seen) #/HPF Urine Bacteria Trace A (NONE SEEN) #/HPF Urine Casts Seen A (NONE SEEN) #/LPF Hyaline Casts Few Urine Mucus Moderate A (NONE SEEN) Ur Culture Indicated? No Discharge Plan Discharge Chief Complaint: Urogenital-Female Clinical Impression: Bladder pain, Hematuria Patient Disposition: Home, Self-Care Time of Disposition Decision: 19:31 Condition: Good Prescriptions / Home Meds: New phenazopyridine [Pyridium] 200 mg tablet 200 mg PO Q8H PRN (Reason: pain) Qty: 6 0RF No Action Eliquis 5 mg tablet 5 mg PO BID carvedilol 6.25 mg tablet 6.25 mg PO BID dicyclomine 20 mg tablet 20 mg PO BID PRN (Reason: abdominal pain) Qty: 14 0RF pantoprazole [Protonix] 40 mg tablet,delayed release (DR/EC) 40 mg PO DAILY Qty: 30 0RF ondansetron 4 mg tablet,disintegrating 4 mg PO Q8H PRN (Reason: nausea and vomiting) 1 Days Qty: 3 0RF atorvastatin 40 mg tablet 40 mg PO .once daily spironolactone 25 mg tablet 12.5 mg PO .once daily lorazepam 0.5 mg tablet 0.5 mg PO TID PRN (Reason: anxiety) Print Language: Eritrean Instructions: Hematuria (ED), Dysuria (ED) Additional Instructions: You were evaluated in the Emergency Department today for burning with urination and blood in your urine. Your exam and initial testing were reassuring. At this time, your symptoms are possible due to cystitis, but other causes such as kidney stones or infection were ruled out earlier today. Please take all prescribed medications as directed. Drink plenty of fluids to help flush your urinary tract. Avoid alcohol and caffeine, which may irritate the bladder. Return to the ER immediately if you develop worsening abdominal, back, or flank pain, fevers, chills, nausea, vomiting, worsening blood in the urine, or if you are unable to urinate. Follow up with your primary care doctor or urology as discussed for continued evaluation and management. Reheck urine with PCP or urology in 1 week. Referrals: TANESHA HOOVER [Primary Care Provider] - 1 week Discharge Date/Time: 04/10/25 20:00
== END 2025-04-10 20:00 | disposition home or self-care (01) ==
PROVIDERS: Emergency Provider Emergency Medicine; PCP Student in an Organized Health Care Education/Training Program
DX: R31.9 Hematuria, unspecified (principal); R39.89 Other symptoms and signs involving the genitourinary system; Z79.01 Long term (current) use of 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s; Z87.891 Personal history of nicotine dependence; R10.9 Unspecified abdominal pain; K52.9 Noninfective gastroenteritis and colitis, unspecified
CPT/HCPCS: 36415; 51798; 74176; 80053; 81001; 81003; 84484; 85025; 93005; 96372; 96374; 96375; 99284; 99285; J0500; J1885; J3490; Q0162

== ENCOUNTER 2025-05-19 11:42 | Outpatient (OUT) | payer MEDICARE, BC, SELFPAY ==
--- OUTSIDE RECORDS SUMMARY | 2025-05-08 14:20 | XMS_ITS | Encounter Summary ---
Author Organization [facility] Address [address] [place] [address] Care Team Providers Care Pharmacy Aide Name Role Phone Isaac Nazario MD Unavailable [phone] Hannah Brian MD Primary Care Provider [phone] Reason for Visit * Reason Comments UTI Immunizations Declines at this juan carlos e Encounter Details Date Type Department Care Team (Late st Contact Info) Description 05/08/2025 2:20 PM EDT [facility] [address] [place] [id number] Hannah Brian MD [address] [place] [address] Hematuria, unspecified type (Primary Dx); Painful urination; C. difficile diarrhea; Mitral valve regurgitation due to cardiomyopathy (HCC); Atrial fibrillation, persistent (HCC); halfway 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 Social History Tobacco Use Types Packs/Day Years [...] Sign Reading Time Taken Comments Blood Pressure 118/78 05/08/2025 2:26 PM EDT Pulse 71 05/08/2025 2:26 PM EDT Temperature 36.8 C (98.3 F) 05/08/2025 2:26 PM EDT Respiratory Rate - - Oxygen Saturation 98% 05/08/2025 2:26 PM EDT Inhaled Oxygen Concentration - - Weight 59.3 kg (130 lb 12.8 oz) 05/08/2025 2:26 PM EDT Height 160 cm (5' 3 ) 05/08/2025 2:26 PM EDT Body Mass Index 23.17 05/08/2025 2:26 PM EDT documented in this encounter Progress Notes * Hannah Brian MD - 05/08/2025 2:20 PM EDT Images from the original note were not included. Subjective Patient ID: Asya Asencio is a 75 y.o. female who presents for UTI and Immunizations (Declines at this time). HPI Pt here for follow up. Has recently tested positive for C diff. Completed course of antibiotics. Stools have transitioned from diarrhea to formed. Is worried about constipation. Continues to follow w/ cardiology. Does have upcoming appt to discuss possible Tri-Clip and Watchmann. Continues to struggle with chr use of anticoagulation and exertional SOB. Review of Systems General: Denies fever, chills CV: Denies CP, palpitations or swelling in legs Resp: denies cough or wheezing GI: Denies abd pain/n/v Skin: Denies rash Neuro: Denies LH or dizziness Objective Blood pressure 118/78, pulse 71, temperature 98.3 ??F, temperature source Temporal, height 5' 3 , weight 130 lb 12.8 oz, SpO2 98%. Body mass index is 23.17 kg/m??. Physical Exam General: alert & oriented, NAD Head: NC/AT Oral Cavity: MMM Skin: warm, dry Lungs: non labored respirations Abdomen: non distended abd Musculoskeletal: normal gait Extremities: no clubbing, cyanosis or edema Neurological: nonfocal Psych: mood/affect full range Assessment/Plan Asya was seen today for uti and immunizations. Diagnoses and all orders for this visit: Hematuria, unspecified type (Primary) - POCT urinalysis dipstick manually resulted - Discussed concerning sx to monitor for and sx tx Painful urination - POCT urinalysis dipstick manually resulted - Discussed concerning sx to monitor for and sx tx C. difficile diarrhea - Discussed no benefit to retest - Antibiotic course finished Mitral valve regurgitation due to cardiomyopathy (HCC) - Discussed possible upcoming possible procedure - Encouraged continued follow up w/ cardiology Atrial fibrillation, persistent (HCC) - Discussed possible upcoming possible procedure - Encouraged continued follow up w/ cardiology halfway 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 documented in this encounter Plan of Treatment Not on file documented as of this encounter Procedures Procedure Name Priority Date/Time Associated Diagnosis Comments POCT URINALYSIS DIPSTICK Routine 05/08/2025 2:33 PM EDT Hematuria, unspecified type Painful urination documented in this encounter Results * POCT urinalysis dipstick manually resulted (05/08/2025 2:33 PM EDT) Color, UA Yellow Clarity, UA Clear Glucose, UA Negative Negative - 2000(110) ++++ mg/dL Bilirubin, UA Negative Negative - 4(70) +++ mg/dL Ketones, UA Negative Negative - 160(16) ++++ mg/dL Spec Grav, UA 1.010 1 - 1.03 Blood, UA Negative Negative - 50 Pedro/mcL pH, UA 7.0 5 - 9 Protein, UA Negative Negative - 2000(20) ++++ mg/dL Urobilinogen, UA 0.2 0.2 - 12 mg/dL Leukocytes, UA Negative Negative - 500+++ Ghislaine/mcL Nitrite, UA Negative Negative - Positive Urine 05/08/2025 2:33 PM EDT us Hannah Brian MD POINT OF CARE TEST ENTER/EDIT ORDERABLES Final Result documented in this encounter Visit Diagnoses Diagnosis Hematuria, unspecified type- Primary Painful urination Dysuria C. difficile diarrhea Intestinal infection due to clostridium difficile Mitral valve regurgitation due to cardiomyopathy (HCC) Atrial fibrillation, persistent (HCC) halfway 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 documented in this encounter Care Teams Pharmacy Aide Relationship Specialty Start Date End Date Isaac Nazario MD [address] [place] [address] PCP - ACO Reach 01/05/23 Hannah Brian MD [address] [place] [address] PCP - General Family Medicine 11/03/23 documented as of this encounter
--- OUTSIDE RECORDS SUMMARY | 2025-05-14 11:40 | XMS_ITS | Encounter Summary ---
Author Organization [facility] Address [address] [place] [address] Care Team Providers Care Manager Career Name Role Phone Isaac Nazario MD Unavailable [phone] Hannah Brian MD Primary Care Provider [phone] Reason for Visit * Reason Comments Immunizations Declines at this juan carlos e Encounter Details Date Type Department Care Team (Late st Contact Info) Description 05/14/2025 11:40 AM EDT Office Visit [facility] [address] [place] [phone] Hannah Brian MD [address] [place] [address] Bee sting, accidental or unintentional, initial encounter (Primary Dx); Gastroesophageal reflux disease without esophagitis; Ear fullness, right; Fluid level behind tympanic membrane of right ear Social History Tobacco Use Types Packs/Day Years [...] Sign Reading Time Taken Comments Blood Pressure 128/78 05/14/2025 11:36 AM EDT Pulse 72 05/14/2025 11:36 AM EDT Temperature 36.8 C (98.2 F) 05/14/2025 11:36 AM EDT Respiratory Rate - - Oxygen Saturation 97% 05/14/2025 11:36 AM EDT Inhaled Oxygen Concentration - - Weight 59 kg (130 lb) 05/14/2025 11:36 AM EDT Height 160 cm (5' 3 ) 05/14/2025 11:36 AM EDT Body Mass Index 23.03 05/14/2025 11:36 AM EDT documented in this encounter Progress Notes * Hannah Brian MD - 05/14/2025 11:40 AM EDT Images from the original note were not included. Subjective Patient ID: Asya Asencio is a 75 y.o. female who presents for Immunizations (Declines at this time). HPI Pt here for acute visit. States she was stung by a yellow jacket on the medial aspect of her L forearm about 2 days ago. Since then, has had redness, swelling and itching of the area. Is putting salt pads on the area, which is helping some. Also c/o R ear fullness w/o pain or drainage. Does have popping sensation. GERD - sx are improved some with pepcid. Did have to decreased from 40 mg to 20 mg. Review of Systems General: Denies fever, chills, fatigue, DICKINSON or weight loss/gain CV: Denies CP, palpitations or swelling in legs Resp: denies cough, SOB or wheezing GI: Denies abd pain/n/v/c/d Skin: Denies rash Neuro: Denies LH or dizziness Objective Blood pressure 128/78, pulse 72, temperature 98.2 ??F, temperature source Temporal, height 5' 3 , weight 130 lb, SpO2 97%. Body mass index is 23.03 kg/m??. Physical Exam General: alert & oriented, NAD Head: NC/AT Ears: R middle ear effusion noted Oral Cavity: MMM Skin: warm, dry Lungs: non labored respirations Abdomen: non distended Musculoskeletal: normal gait Extremities: no clubbing, cyanosis or edema Neurological: nonfocal Psych: mood/affect full range Assessment/Plan Asya was seen today for immunizations. Diagnoses and all orders for this visit: Bee sting, accidental or unintentional, initial encounter (Primary) Discussed sx tx, side effects of meds and concerning sx to monitor for. Gastroesophageal reflux disease without esophagitis - famotidine (Pepcid) 20 MG tablet; Take 1 tablet (20 mg) by mouth at bedtime Stable, continue to monitor. No change in regimen. Ear fullness, right Fluid level behind tympanic membrane of right ear Discussed sx tx, side effects of meds and concerning sx to monitor for. documented in this encounter Plan of Treatment Not on file documented as of this encounter Visit Diagnoses Diagnosis Bee sting, accidental or unintentional, initial encounter- Primary Gastroesophageal reflux disease without esophagitis Esophageal reflux Ear fullness, right Fluid level behind tympanic membrane of right ear documented in this encounter Care Teams Manager Career Relationship Specialty Start Date End Date Isaac Nazario MD [address] [place] [address] PCP - ACO Reach 01/05/23 Hannah Brian MD [address] [place] [address] PCP - General Family Medicine 11/03/23 documented as of this encounter
--- OUTSIDE RECORDS SUMMARY | 2025-05-19 11:47 | XMS_ITS | Encounter Summary ---
Author Organization [facility] Address [address] [place] [address] [address] Team [address] Care [address] Lab Technician Name Role Phone Isaac Nazario MD Unavailable [phone] Hannah Brian MD Primary Care Provider [phone] Encounter Details Date Type Department Care Team (Late st Contact Info) Description 05/19/2025 Patient Outreach [facility] [address] [place] [phone] Loida Nathan LPN [address] [place] [address] Social History Tobacco Use Types Packs/Day Years [...] Progress Notes * Loida Nathan LPN - 05/19/2025 8:34 AM EDT Pt called as she is taking the Pepcid 20mg once daily since 05/14/25 appt and her reflux is terribleand would like to go back to 20mg BID. She would also like to know how long she can do this. <May 19, 2025, 08:43 - Loida Nathan LPN> * Hannah Brian MD - 05/19/2025 8:34 AM EDT New rx sent. Max dose is 40 mg daily so can take as long as she needs to as she long as she is within the appropriate dose range * Loida Nathan LPN - 05/19/2025 8:34 AM EDT Notified pt. She states that she just got her tricuspid valve surgery scheduled for 05/27/25. <May 19, 2025, 10:17 - Loida Nathan LPN> documented in this encounter Miscellaneous Notes * Addendum Note - Hannah Brian MD - 05/19/2025 8:34 AM EDTAddended by: HANNAH BRIAN on: 05/19/2025 09:58 AM Modules accepted: Orders documented in this encounter Plan of Treatment Not on file documented as of this encounter Visit Diagnoses Diagnosis Gastroesophageal reflux disease, unspecified whether esophagitis present- Primary Anxiety Anxiety state, unspecified Gastroesophageal reflux disease without esophagitis Esophageal reflux documented in this encounter Care Teams Rd Lab Technician Relationship Specialty Start Date End Date Isaac Nazario MD [address] [place] [address] PCP - ACO Reach 01/05/23 Hannah Brian MD [address] [place] [address] PCP - General Family Medicine 11/03/23 documented as of this encounter
--- OUTSIDE RECORDS SUMMARY | 2025-05-19 11:47 | XMS_ITS | Encounter Summary ---
Author Organization [facility] Address [address] [place] [address] Care Team Providers Care Insurance Follow Up Rep Name Role Phone Isaac Nazario MD Unavailable [phone] Hannah Brian MD Primary Care Provider [phone] Encounter Details Date Type Department Care Team (Late st Contact Info) Description 05/14/2025 Bamboo flowsheet [facility] [address] [place] [address] Hannah Brian MD [address] [place] [address] Social History Tobacco Use Types Packs/Day Years [...] on filedocumented in this encounter Care Teams Insurance Follow Up Rep Relationship Specialty Start Date End Date Isaac Nazario MD [address] [place] [address] PCP - ACO Reach 01/05/23 Hannah Brian MD [address] [place] [address] PCP - General Family Medicine 11/03/23 documented as of this encounter
--- OUTSIDE RECORDS SUMMARY | 2025-05-19 11:47 | XMS_ITS | Encounter Summary ---
Author Organization [facility] Address [address] [place] [address] Care Team Providers Care Commercial Installer Name Role Phone Isaac Nazario MD Unavailable [phone] Isaac Nazario MD Primary Care Provider [phone] Hannah Brian MD Primary Care Provider [phone] Encounter Details Date Type Department Care Team [...] 5:14 PM EST Echocardiography Report: Transthoracic Echo [facility] J35 Date of service: 08/23/2023 2:15:32 PM CLERK Ordering physician: MICHELINE BARRIGA Indication: Valvular heart disease Technologist: Dede Coker [facility] Interpreting physician: To Brewer MD [...] * Final (Updated) * * * [facility] [employer] : [id number]^[employer]^SI^PATRICE D Narrative 08/23/2023 4:55 PM EST Echocardiography Report: Transthoracic Echo [facility] J35 Date of service: 08/23/2023 2:15:32 PM CLERK Ordering physician: MICHELINE BARRIGA Indication: Valvular heart disease Technologist: Dede Coker [facility] Interpreting physician: To Brewer MD [...] * * Final * * * [facility] [employer] : [id number]^[employer]^SI^SUID Procedure Note Radiology, Radiologist, - 08/24/2023 Echocardiography Report: Transthoracic Echo [facility] Date of service: 08/23/2023 2:15:32 PM CLERK Ordering physician: MICHELINE BARRIGA Indication: Valvular heart disease Technologist: Dede Coker [facility] Interpreting physician: To Brewer MD [...] * * Final * * * [facility] [employer] :[id number]^[employer]^SI^SUID us Generic External Data Provider [employer] Edited Result - Final documented in this encounter Visit Diagnoses Not on filedocumented in this encounter Care Teams Commercial Installer Relationship Specialty Start Date End Date Isaac Nazario MD [address] [place] [address] PCP - ACO Reach 01/05/23 Isaac Nazario MD [address] [place] [address] PCP - General Family Medicine 02/08/23 11/02/23 Hannah Brian MD [address] [place] [address] PCP - General Family Medicine 11/03/23 documented as of this encounter
--- OUTSIDE RECORDS SUMMARY | 2025-05-19 11:47 | XMS_ITS | Encounter Summary ---
Author Organization [facility] Address [address] [facility] [place] [address] Care Team Providers Care Process Engineering Manager Name Role Phone Isaac Nazario MD Unavailable [phone] Isaac Nazario MD Primary Care Provider [phone] Hannah Brian MD Primary Care Provider [phone] Encounter Details Date Type Department Care Team [...] 74 - 99 mg/dL [facility] Comment: The [place] Diabetes Association (ADA) [...] EST Specimen Type: BLOOD SPECIMEN Ordering Facility: [facility] Address: [address] [place] [address] Original Ordering Provider: YECENIA GLEZ us Generic External Data Provider THOMAS cruz Result [facility] [address] [place] [address] * (ABNORMAL) [facility] NT-PROBNP SERPL-MCNC (08/23/2023 11:44 AM EST) [facility] NT-PROBNP SERPL-MCNC 3,265(H) <450 pg/mL [facility] 08/23/2023 11:4 4 AM EST 08/23/2023 12:11 PM EST Narrative [facility] - 08/23/2023 12:50 PM EST Specimen Type: BLOOD SPECIMEN Ordering Facility: [facility] Address: [address] [place], [place] [id number] Original Ordering Provider: YECENIA GLEZ us Generic External Data Provider LUCÍAISYNC F inal Result Performing Organization Address [facility] Co de Phone Number DANIELLENC [facility] [address] [address] * [facility] CBC PNL BLD AUTO (08/23/2023 [...] EST Specimen Type: BLOOD SPECIMEN Ordering Facility: [facility] Address: [address] [place] [address] Original Ordering Provider: YECENIA GLEZ us Generic External Data Provider CLINIS[facility]NC F inal Result Performing Organization Address [facility] Co de Phone Number DANIELLENC [facility] [address] [address] * (ABNORMAL) [facility] CREATININE BLD (08/23/2023 8:13 [...] EST Specimen Type: BLOOD SPECIMEN Ordering Facility: [facility] Address: [address] [place] [address] Original Ordering Provider: MICHELINE BARRIGA Generic External Data Provider [facility] F ina Result [facility] [address] [place] [address] * CTA CHEST (GATED) W IVCON (08/23/2023 [...] AORTIC DIMENSIONS: AORTIC ROOT: 3.5 cm measured [id number]-tu-fulxi Area cm2 mid ASCENDING THORACIC AORTA: 2.9 cm Area cm2 mid DESCENDING THORACIC AORTA: 2.2 cm limited upper ABDOMEN: unremarkable BONES: Unremarkable Gang Plank Workman (topogram) images: No additional findings. IMPRESSION: Dilated left ventricle, biatrial enlargement. Mitral valve is noncalcified. Normal caliber thoracic aorta. Skiing Instructor: LILIANA Transcribe Date/Time: Aug 23 2023 11:20A Dictated by : SARAH CARNEY MD This examination was interpreted and the report reviewed and electronically signed by: SARAH CARNEY MD on Aug 23 2023 12:14PM EST [id number] Procedure Note Radiology, Radiologist, - 08/23/2023 * [...] AORTIC DIMENSIONS: AORTIC ROOT: 3.5 cm measured aywxp-vx-esiyp Area cm2 mid ASCENDING THORACIC AORTA: 2.9 cm Area cm2 mid DESCENDING THORACIC AORTA: 2.2 cm limited upper ABDOMEN: unremarkable BONES: Unremarkable Gang Plank Workman (topogram) images: No additional findings. IMPRESSION: Dilated left ventricle, biatrial enlargement. Mitral valve is noncalcified. Normal caliber thoracic aorta. Skiing Instructor: PSCB Transcribe Date/Time: Aug 23 2023 11:20A Dictated by : SARAH CARNEY MD This examination was interpreted and the report reviewed and electronically signed by: SARAH CARNEY MD on Aug 23 2023 12:14PM EST [id number]^ACN Generic External Data Provider [facility] Final Result documented in this encounter Visit Diagnoses Not on filedocumented in this encounter Care Teams Process Engineering Manager Relationship Specialty Start Date End Date Isaac Nazario MD [address] [place] [id number] PCP - ACO Reach 01/05/23 Isaac Nazario MD [address] [place] [id number] PCP - General Family Medicine 02/08/23 11/02/23 Hannah Brian MD [address] [place] [id number] PCP - General Family Medicine 11/03/23 documented as of this encounter
--- OUTSIDE RECORDS SUMMARY | 2025-05-19 11:47 | XMS_ITS | Clinical Summary ---
Author Organization [facility] Address [address] [facility] [place] [address] Care Team Providers Care Shift Supervisor Melting Name Role Phone Isaac Nazario MD Unavailable [phone] Hannah Brian MD Primary Care Provider [phone] Allergies Active Allergy Reactions Criticality Noted Date Comments Amiodarone Nausea And Vomiting 01/30/2024 Amoxicillin Diarrhea 01/30/2023 Aspirin 05/14/2010 Other Reaction(s): Other: See Comments Patient states causes Bruising. Cephalexin GI intolerance 01/30/2023 Egg Protein-Containing Drug Products 01/30/2023 Other Reaction(s): allergy Erythromycin Unknown [...] or nausea 20 tablet 12/04/19 24 Active prednisoLONE acetate (Pred-Forte) 1 % ophthalmic suspension 07/31/20 24 Active carvedilol (Coreg) 3.125 MG tablet Take 3.125 mg by mouth in the morning and 3.125 mg in the evening. Take with meals. 08/20/19 25 Active neomycin-polymyxin -dexAMETHasone (Maxitrol) 3.5-62804-9.1 ophthalmic suspension 10/31/19 25 Active pantoprazole (ProtoNix) 40 MG EC tablet Take 40 mg by mouth Daily 04/10/20 25 Active LORazepam (Ativan) 0.5 MG tabletIndications: Panic attack Take 1 tablet (0.5 mg) by mouth every 8 (eight) hours if needed for anxiety 90 tablet 05/16/20 25 Active famotidine (Pepcid) 20 MG tabletIndications: Gastroesophageal reflux disease without esophagitis Take 1 tablet (20 mg) by mouth in the morning and 1 tablet (20 mg) before bedtime. 180 tablet 3 05/19/20 25 026 Active famotidine (Pepcid) 40 MG tabletIndications: Gastroesophageal reflux disease without esophagitis Take 1 tablet (40 mg) by mouth at bedtime 30 tablet 04/07/20 25 025 Discontinu ed(Reorder ) LORazepam (Ativan) 0.5 MG tabletIndications: Anxiety TAKE 1 TABLET BY MOUTH EVERY 8 HOURS NEEDED FOR ANXIETY 90 tablet 04/17/20 25 025 Discontinu ed(Reorder ) sodium phosphate (Fleet) 7-19 GM/118ML enemaIndications:C onstipation, unspecified constipation type Insert 1 enema into the rectum 1 (one) time for 1 dose 135 mL 04/17/20 25 025 vancomycin (Vancocin) 125 MG capsule Take 125 mg by mouth in the morning and 125 mg at noon and 125 mg in the evening and 125 mg before bedtime. 04/24/20 25 025 famotidine (Pepcid) 20 MG tabletIndications: Gastroesophageal reflux disease without esophagitis Take 1 tablet (20 mg) by mouth at bedtime 90 tablet 3 05/14/20 25 025 Discontinu ed(Reorder ) Active Problems Problem Noted Date Diagnosed Date alf 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 Severe protein-calorie malnutrition (HHS-HCC) Atrial fibrillation, persistent [...] Encounters Date Type Department Care Team Description 05/19/2025 Patient Outreach [place] [address] [place] [address] Loida Nathan LPN 05/16/2025 Refill [place] [address] [place] [address] Hannah Brian MD Anxiety 05/14/2025 11:40 AM EDT Office Visit [place] [address] [place] [address] Hannah Brian MD Bee sting, accidental or unintentional, initial encounter (Primary Dx); Gastroesophageal reflux disease without esophagitis; Ear fullness, right; Fluid level behind tympanic membrane of right ear 05/14/2025 Patient Outreach [place] [address] [place] [address] Do Sana, CALLIE 05/14/2025 Bamboo flowsheet [place] [address] [place] [address] Hannah Brian MD 05/14/2025 Travel 05/08/2025 2:20 PM EDT Office Visit [facility] [address] [place] [address] Hannah Brian MD Hematuria, unspecified type (Primary Dx); Painful urination; C. difficile diarrhea; Mitral valve regurgitation due to cardiomyopathy (HCC); Atrial fibrillation, persistent (HCC); intermediate teacher 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 05/08/2025 Bamboo flowsheet [place] [address] [place] [address] Hannah Brian MD 05/08/2025 Travel 04/28/2025 Patient Outreach [facility] [address] [place] [address] Loida Nathan LPN 04/21/2025 3:00 PM EDT Office Visit [place] [address] [place] [address] Hannah Brian MD Frequent urination (Primary Dx); Painful urination; Mitral valve regurgitation due to cardiomyopathy (HCC); Exertional dyspnea; Hypertensive heart disease with heart failure (HCC); Atrial fibrillation, persistent (HCC); intermediate teacher 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; Anxiety 04/21/2025 Travel 04/21/2025 Patient Outreach [facility] [address] 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 [address] [place] [address] Hannah Brian MD Anxiety 04/16/2025 Patient Outreach [facility] [address] [place] [address] Loida Nathan LPN 04/15/2025 Patient Outreach [facility] [address] [place] [address] Loida Nathan LPN 04/11/2025 Patient Out[facility] [address] [place] [address] Loida Nathan LPN 04/09/2025 Patient Outreach [facility] [address] [place] [address] Loida Nathan LPN 04/07/2025 1:40 PM EDT Office Visit [place] [address] [place] [address] Hannah Brian MD Frequent urination (Primary Dx); Painful urination; Left lower quadrant pain; Gastroesophageal reflux disease without esophagitis; Exertional dyspnea; Mitral valve regurgitation due to cardiomyopathy (HCC); Hypertensive heart disease with heart failure (HCC); Unspecified systolic (congestive) heart failure (HCC) 04/07/2025 Bamboo flowsheet [facility] [address] [place] [address] Hannah Brian MD 04/07/2025 Travel 2025 Patient Outreach [facility] [address] [place] [address] Loida Nathan LPN 03/03/2025 Patient Outreach [facility] [address] [place] [address] Loida Nathan LPN from Last 3 Months Immunizations Immunization Administration [...] Mass Index 23.03 05/14/2025 11:36 AM EDT Plan of Treatment Health Maintenance Due Date Last Done Comments Pneumococcal Vaccine: 65+ Ye ars (1 of 2 - PCV) 1969 Colonoscopy Discontinued 02/15/2018, 02/15/2018 Colorectal Cancer Screening Discontinued Mammogram Discontinued 12/05/2022, 01/2023, 08/03/2020, Additional history exists CT Colonography Discontinued FIT-DNA Discontinued FIT Discontinued FOBT Discontinued Influenza Vaccine Discontinued Sigmoidoscopy Discontinued Procedures Procedure Name Priority Date/Time Associated Diagnosis Comments POCT URINALYSIS DIPSTICK Routine 05/08/2025 2:33 PM EDT Hematuria, unspecified type Painful urination POCT URINALYSIS DIPSTICK Routine 04/07/2025 1:50 PM EDT Frequent urination Painful urination BI MAMMOGRAM SCREENING TOMOSYNTHESIS BILATERAL Routine 12/05/2022 Encounter for screening mammogram for malignant neoplasm of breast COLONOSCOPY Routine 02/15/2018 12:00 PM EDT from Last 3 Months or Most Recently Relevant to Health Maintenance Results * POCT urinalysis dipstick manually resulted (05/08/2025 2:33 PM EDT) Only the most recent of2 [...] Narrative 12/05/2022 12:00 AM EDT PERFORMED AT [facility] LOCATION:[place] [address] Exam Date/Time: 12/05/2022 15:01 EDT Reason for [...] very important to your health. The current [employer] and National Comprehensive Cancer [...] Note CONVERSION, GENERIC - 02/17/2023 PERFORMED AT [facility] LOCATION:[place] [address] Exam Date/Time: 12/05/2022 15:01 EDT Reason for [...] very important to your health. The current [employer] and National Comprehensive [employer] Network [...] Narrative 02/15/2018 12:00 PM EDT PERFORMED AT [facility] LOCATION:[id number] Procedure Note CONVERSION, GENERIC - 12/28/2022 PERFORMED AT [facility] LOCATION:[id number] us Isaac Nazario MD ENDOSCOPY PROCEDURE ORDERABLES Final Result from Last 3 Months or Most Recently Relevant to Health Maintenance Insurance [address] [place] [id number] MEDICARE [facility] Care Teams Shift Supervisor Melting Relationship Specialty Start Date End Date Isaac Nazario MD [address] [place] [address] PCP - ACO Reach 01/05/23 Hannah Brian MD [address] [place] [address] PCP - General Family Medicine 11/03/23
--- OUTSIDE RECORDS SUMMARY | 2025-05-19 11:47 | XMS_ITS | Encounter Summary ---
Author Organization [facility] Address [address] [place] [address] Care Team Providers Care C.O.D. Audit Clerk Name Role Phone Isaac Nazario MD Unavailable [phone] Hannah Brian MD Primary Care Provider [phone] Encounter Details Date Type Department Care Team (Latest Contact Info) Description 05/14/2025 Travel Social History Tobacco Use Types Packs/Day [...] on filedocumented in this encounter Care Teams C.O.D. Audit Clerk Relationship Specialty Start Date End Date Isaac Nazario MD [address] [place] [address] PCP - ACO Reach 01/05/23 Hannah Brian MD [address] [place] [address] PCP - General Family Medicine 11/03/23 documented as of this encounter
--- OUTSIDE RECORDS SUMMARY | 2025-05-19 11:47 | XMS_ITS | Encounter Summary ---
Author Organization [facility] Address [address] [place] [address] Care Team Providers Care Cnc Machinist Name Role Phone Isaac Nazario MD Unavailable [phone] Hannah Brian MD Primary Care Provider [phone] Encounter Details Date Type Department Care Team (Late st Contact Info) Description 05/08/2025 Bamboo flowsheet [facility] [address] [place] [address] Hannah Brian MD [address] [place] [address] Social History Tobacco Use Types Packs/Day Years [...] on filedocumented in this encounter Care Teams Cnc Machinist Relationship Specialty Start Date End Date Isaac Nazario MD [address] [place] [address] PCP - ACO Reach 01/05/23 Hannah Brian MD [address] [place] [address] PCP - General Family Medicine 11/03/23 documented as of this encounter
--- OUTSIDE RECORDS SUMMARY | 2025-05-19 11:47 | XMS_ITS | Encounter Summary ---
Author Organization [facility] Address [address] [place] [address] Care Team Providers Care Inpatient Coder Name Role Phone Isaac Nazario MD Unavailable [phone] Hannah Brian MD Primary Care Provider [phone] Encounter Details Date Type Department Care Team (Late st Contact Info) Description 05/14/2025 Patient Outreach [facility] [address] [place] [address] Sana Lei LPN [address] [place] [address] Social History Tobacco Use Types Packs/Day Years [...] Progress Notes * Sana Lei LPN - 05/14/2025 2:07 PM EDT Pt calls and states will need refill of ativan but will not be able to sampler pickup 05/18. Last refill refill was 04/17/25. FYI- seen today by PCP * Sana Lei LPN - 05/14/2025 2:07 PM EDT Pt calls again and states that her ativan was not sent in and is very anxious about this. Only has enough till tomorrow. Pt was seen 05/14/[address] Brian. Pt is having surgery soon and says her nerves are very high. Would like sent to [facility] in [place] please. Last sent in 04/17/25- [place] would you be able to address this please? Pt would like mortgage or loan underwriter to call her back if this can be done please. * Sana Lei LPN - 05/14/2025 2:07 PM EDT Pt calls again to see if med was sent in. Setter Automatic Spinning Lathe informs will call as soon as it is sent in * JOSE ALBERTO Pak - 05/14/2025 2:07 PM EDT Saurav Hood sent in refill ativan for patient, thank you [place] * Sana Lei LPN - 05/14/2025 2:07 PM EDT Setter Automatic Spinning Lathe calls pt to inform. documented in this encounter Miscellaneous Notes * Addendum Note - JOSE ALBERTO Pak - 05/14/2025 2:07 PM EDTAddended by: LAWRENCE SHINE on: 05/16/2025 03:22 PM Modules accepted: Orders documented in this encounter Plan of Treatment Not on file documented as of this encounter Visit Diagnoses Diagnosis Anxiety- Primary Anxiety state, unspecified Panic attack Panic disorder without agoraphobia documented in this encounter Care Teams Inpatient Coder Relationship Specialty Start Date End Date Isaac Nazario MD [address] [place] [address] PCP - ACO Reach 01/05/23 Hannah Brian MD [address] [place] [address] PCP - General Family Medicine 11/03/23 documented as of this encounter
--- OUTSIDE RECORDS SUMMARY | 2025-05-19 11:47 | XMS_ITS | Encounter Summary ---
Author Organization [facility] Address [address] [place] [address] Care Team Providers Care Wholesale Account Executive Name Role Phone Isaac Nazario MD Unavailable [phone] Hannah Brian MD Primary Care Provider [phone] Reason for Visit * Reason Comments Med Refill Encounter Details Date Type Department Care Team (Late st Contact Info) Description 05/16/2025 Refill [facility] [address] [place] [address] Hannah Brian MD [address] [place] [address] Anxiety Social History Tobacco Use Types Packs/Day [...] as of this encounter Visit Diagnoses Diagnosis Anxiety Anxiety state, unspecified documented in this encounter Care Teams Wholesale Account Executive Relationship Specialty Start Date End Date Isaac Nazario MD [address] [place] [address] PCP - ACO Reach 01/05/23 Hannah Brian MD [address] [place] [address] PCP - General Family Medicine 11/03/23 documented as of this encounter
--- OUTSIDE RECORDS SUMMARY | 2025-05-19 11:47 | XMS_ITS | Encounter Summary ---
Author Organization [facility] Address [address] [place] [address] Care Team Providers Care Interpersonal Communications Professor Name Role Phone Isaac Nazario MD Unavailable [phone] Hannah Brian MD Primary Care Provider [phone] Encounter Details Date Type Department Care Team (Latest Contact Info) Description 05/08/2025 Travel Social History Tobacco Use Types Packs/Day [...] on filedocumented in this encounter Care Teams Interpersonal Communications Professor Relationship Specialty Start Date End Date Isaac Nazario MD [address] [place] [address] PCP - ACO Reach 01/05/23 Hannah Brian MD [address] [place] [address] PCP - General Family Medicine 11/03/23 documented as of this encounter
--- OUTSIDE RECORDS SUMMARY | 2025-05-19 11:48 | XMS_ITS | Clinical Summary ---
Author Organization [facility] Address [address] [place] [address] Care Team Providers Care Solid Fiber Paster Operator Name Role Phone Irving Sorto MD Unavailable [phone] Johan Mireles MD Unavailable [phone] Isaac Nazario MD Primary Care Provider [phone] Allergies Active Allergy Reactions Criticality Noted Date [...] is lower risk 3 05/07/2024 Data from: https://www.neighborhoodatlas.medicine.[facility] Last address used for calculation [address] [...] 75+ series) 2023 Advance Directive Discussion 08/14/2024 Covid-19 Vaccine ( - 2024-2 6 season) 2025 Influenza Vaccine (#1) 2025 Diabetes Screening 02/21/2027 [...] 024 11:13 AM EST) No Benitez Dudley APRN.PIVOT END POLISHER Procedures Procedure Name Priority Date/Time Associated Diagnosis [...] 8.0 g/dL 09/26/2023 1:52 PM EST [facility] Albumin 4.2 3.9 - 4.9 g/dL 09/26/2023 1:52 PM EST [facility] Calcium, Total 9.6 8.5 - 10.2 mg/dL 09/26/2023 1:52 PM EST [facility] Bilirubin, Total 0.6 0.2 - 1.3 mg/dL 09/26/2023 1:52 PM EST [facility] Alkaline Phosphatase 57 34 - 123 U/L 09/26/2023 1:52 PM EST [facility] AST 29 13 - 35 U/L 09/26/2023 1:52 PM EST [facility] ALT 36 7 - 38 U/L 09/26/2023 1:52 PM [facility] Glucose 129(H) 74 - 99 mg/dL 09/26/2023 1:52 PM [facility] Comment: The [place] Diabetes Association (ADA) provides guidance for cutoff [...] Standards of Medical Care in Diabetes 2016, [place] Diabetes Association. Diabetes Care. 2016.39(Suppl 1). BUN 15 7 - 21 mg/dL 09/26/2023 1:52 PM [facility] Creatinine 0.82 0.58 - 0.96 mg/dL 09/26/2023 1:52 PM [facility] Sodium 139 136 - 144 mmol/L 09/26/2023 1:52 PM [facility] Potassium 4.3 3.7 - 5.1 mmol/L 09/26/2023 1:52 PM [facility] Chloride 100 97 - 105 mmol/L 09/26/2023 1:52 PM [facility] CO2 29 22 - 30 mmol/L 09/26/2023 1:52 PM [facility] Anion Gap 10 9 - 18 mmol/L 09/26/2023 1:52 PM [facility] Estimated Glomerular Filtration Rate 75 >=60 mL/min/1.7 3m 09/26/2023 1:52 PM [facility] Comment:Estimated Glomerular Filtration Rate (eGFR) [...] Dick Singh MD LABORATORY Final Result [facility] [address] [facility] [address] [place] [address], [place] * COLONOSCOPY - DIAGNOSTIC (02/15/2018 10:06 AM EDT) Methods Engineer A30 Gastrointestinal Endoscopy Patient Name: Asya Asencio [...] Relevant to Health Maintenance Insurance [address] [place] [address] MEDICARE [employer] MEDICARE SUPPLEMENT Advance Directives * Full Code (Latest Code Status on File) Date Activated Date Inactivated Comments 08/24/2023 8:43 PM 08/31/2023 9:57 PM Question Answer Comments Full Code Order Discussed With: Patient Care Teams Solid Fiber Paster Operator Relationship Specialty Start Date End Date Isaac Nazario MD [address] [place] [address] PCP - General Family Medicine 07/24/23 Irving Sorto MD [address] [place] [address] Surgeon Cardiac Surg 07/24/23 Johan Mireles MD [address] [place] [address] Methods Specialist Cardiology 07/24/23
--- OUTSIDE RECORDS SUMMARY | 2025-05-19 11:48 | XMS_ITS | Encounter Summary ---
Author Organization [facility] Address [address] [place] [address] Care Team Providers Care Human Resources Professional Name Role Phone Isaac Nazario MD Unavailable [phone] Isaac Nazario MD Primary Care Provider [phone] Hannah Brian MD Primary Care Provider [phone] Encounter Details Date Type Department Care Team [...] AM EST Narrative 10/18/2023 6:26 PM EST [place] [id number] Respiratory Report Signed Patient: ASYA ULLOA I MR#: [id number] : 1950 Acct:[id number] Age/Sex: 73 / F ADM Date: 10/18/23 Loc: CARD Attending Dr: Jayde-Staff Physician Pedro Ordering Physician: Pat Zhao M.D. Date of Service: 10/18/23 Procedure(s): RT pulmonary function test Accession Number(s): [id number] cc: [facility] Test Date: 2023-10-18 Pat Name: ASYA ULLOA Department: Room: - Gender: Female Leak Operator Paraffin Plant: Dave Arreola RRT : 1950 Requested By: [id number] Order Number: [id number] Reading MD: Barrington Rosa Interpretive Statements Spirometry [...] Signed By: 10/18/23 1826 DD/ 0858 TD/TT: Pay Per Click Strategist: Procedure Note Radiology, Radiologist, - 10/18/[address] [address] Respiratory Report Signed Patient: ASYA ULLOA IMR#: [id number] : 8Acct:[id number] Age/Sex: 73 / FADM Date: 10/18/23 Loc: CARD Attending Dr: ConradoStaff Physician Vasquez Ordering Physician: Pat Zhao M.D. Date of Service: 10/18/23 Procedure(s): RT pulmonary function test Accession Number(s): [id number] cc: [facility] Test Date: 2023-10-18 Pat Name: ASYA ULLOA Department: Room: - Gender: Female Leak Operator Paraffin Plant: Dave Arreola RRT : 1950 Requested By: [id number] Order Number: [id number] Reading MD: Barrington Rosa Interpretive Statements Spirometry [...] D.O. Signed By:10/18/23 1826 DD/ 0858 TD/TT: Pay Per Click Strategist: Generic External Data Provider [facility] Final Result documented in this encounter Visit Diagnoses Not on filedocumented in this encounter Care Teams Human Resources Professional Relationship Specialty Start Date End Date Isaac Nazario MD [address] [place] [address] PCP - ACO Reach 01/05/23 Isaac Nazario MD [address] [place] [address] PCP - General Family Medicine 02/08/23 11/02/23 Hannah Brian MD [address] [place] [address] PCP - General Family Medicine 11/03/23 documented as of this encounter
--- OUTSIDE RECORDS SUMMARY | 2025-05-19 11:48 | XMS_ITS | Encounter Summary ---
Author Organization [facility] Address [address] [place] [address] Care Team Providers Care Automated Weaver Name Role Phone Isaac Nazario MD Primary Care Provider [phone] Irving Sorto MD Unavailable [phone] Johan Mireles MD Unavailable [phone] Isaac Nazario MD Primary Care Provider [phone] Dick Singh MD Unavailable Unavailable Dick Singh MD Unavailable Unavailable Source Comments In the event this information is protected by the Federal Confidentiality of Alcohol and Drug AbusePatient Records regulations: The Federal rules restrict any use of the information to criminally investigate or prosecute any alcohol or drug abuse patient.[facility] Encounter Details Date Type Department Care Team (Late st Contact Info) Description 02/23/2018 Letters (in) Colorectal Surgery [address] [place] [id number] Asa Macdonald MD [address] [place] [address] Social History Tobacco Use Types [...] AM EDT February 23, 2018 Asya Ruiz [address], [place] [address] NAME: ASYA ASENCIO I CLINIC NO.: [id number] DATE OF SERVICE: 02/23/2018 Dear Mrs. Asencio: This is a note regarding the colonoscopy done for you on the February 15, 2018. The indication was to screen your colon. The colon looked completely normal and I have recommended another check in 5 years. With kind regards. Yours sincerely, Asa Macdonald MD Department of Colorectal Surgery Date Dictated: 02/23/2018 Date Typed: [facility] 02/24/2018 JOB# [id number] documented in this encounter Plan of Treatment Not on file documented as of this encounter Visit Diagnoses Not on filedocumented in this encounter Care Teams Automated Weaver Relationship Specialty Start Date End Date Isaac Nazario MD PCP - General 10/28/05 07/23/23 Isaac Nazario [place] [address] PCP - General Family Medicine 07/24/23 Irving Sorto MD [address] [place] [address] Surgeon Cardiac Surg 07/24/23 Johan Mireles MD [facility] [place] [address] [employer] Tutor Cardiology 07/24/23 Dick Singh MD [address] [place] [address] Cardiology 07/28/23 06/02/24 Dick Singh MD [address] [place] [address] Primary Staff Physician Cardiology 08/23/23 documented as of this encounter
--- OUTSIDE RECORDS SUMMARY | 2025-05-19 11:48 | XMS_ITS | Encounter Summary ---
Author Organization [facility] Address [address] [address] Care Team Providers Care Supervisor Dairy Sanitation Name Role Phone Isaac Nazario MD Unavailable [phone] Hannah Brian MD Primary Care Provider [phone] Encounter Details Date Type Department Care Team (Late st Contact Info) Description 11/13/2023 Clinisync Result Encounter [facility] External Department Unsolicited Hannah Brian MD [address] [place] [address] Social History Tobacco Use Types Packs/Day Years [...] on filedocumented in this encounter Care Teams Supervisor Dairy Sanitation Relationship Specialty Start Date End Date Isaac Nazario MD [address] [place] [address] PCP - ACO Reach 01/05/23 Hannah Brian MD [address] [place] [address] PCP - General Family Medicine 11/03/23 documented as of this encounter
--- OUTSIDE RECORDS SUMMARY | 2025-05-19 11:48 | XMS_ITS | Encounter Summary ---
Author Organization [facility] Address [address] [place] [address] Care Team Providers Care Inspector Government Property Name Role Phone Peggy Whitley MD Unavailable [phone] Peggy Whitley MD Primary Care Provider [phone] Hannah Brian MD Primary Care Provider [phone] Encounter Details Date Type Department Care Team [...] PM EST Narrative 10/13/2023 12:40 PM EST [address] [address] Cardiology Report Signed Patient: ASYA ULLOA MR#: [id number] : 1950 Acct:[id number] Age/Sex: 73 / F ADM Date: 10/13/23 Loc: CARD Attending Dr: Non-Staff Physician MAntonio Ordering Physician: Physician,Non-Staff Pedro Date of Service: 10/13/23 Procedure(s): CA echo limited Accession Number(s): [id number] cc: PEGGY WHITLEY ; Physician,Non-Staff Pedro Patient Name: ASYA ULLOA MR#: [id number] : 1950 Exam Date: 10/13/2023 Ordering Doctor: [...] Signed By: 10/13/23 1240 DD/ 1239 TD/TT: Survey Statistician: Procedure Note Radiology, Radiologist, - 10/13/2023 The [place] [id number] Cardiology Report Signed Patient: SIMRAN ULLOA#: [id number] : 8Acct:[id number] Age/Sex: 73 / FADM Date: 10/13/23 Loc: CARD Attending Dr: Non-Staff Physician Pedro Ordering Physician: Conrado ZhaoStaff Pedro Date of Service: 10/13/23 Procedure(s): CA echo limited Accession Number(s): [id number] cc: PEGGY WHITLEY ; Physician,ConradoStaff Pedro Patient Name: ASYA ULLOA MR#: [id number] : 1950 Exam Date: 10/13/2023 Ordering Doctor: [...] M.D. Signed By:10/13/23 1240 DD/ 1239 TD/TT: Survey Statistician: us Generic External Data Provider IMG XR PROCEDURES Final Result documented in this encounter Visit Diagnoses Not on filedocumented in this encounter Care Teams Inspector Government Property Relationship Specialty Start Date End Date Peggy Whitley MD [address] [place] [address] PCP - ACO Reach 01/05/23 Peggy Whitley MD [address] [place] [address] PCP - General Family Medicine 02/08/23 11/02/23 Hannah Brian MD [address] [place] [address] PCP - General Family Medicine 11/03/23 documented as of this encounter
--- OUTSIDE RECORDS SUMMARY | 2025-05-19 11:48 | XMS_ITS | Encounter Summary ---
Author Organization [facility] Address [address] [place] [facility] [place] [address] Care Team Providers Care Plating Operator Name Role Phone Peggy Whitley MD Unavailable [phone] Peggy Whitley MD Primary Care Provider [phone] Hannah Brian MD Primary Care Provider [phone] Encounter Details Date Type Department Care Team [...] EST Narrative 10/18/2023 11:29 [place] [address] Ultrasound Report Signed Patient: ASYA ULLOA I MR#: [id number] : 1950 Acct:[id number] Age/Sex: 73 / F ADM Date: 10/18/23 Loc: CARD Attending Dr: Non-Staff Physician Pedro Ordering Physician: PhysicianConradoStaff Pedro Date of Service: 10/18/23 Procedure(s): US carotid duplex BI Accession Number(s): [id number] cc: PEGGY WHITLEY ; PhysicianNon-Staff Pedro The [place] [address] Patient Name: ASYA ULLOA MRN: [id number] date: 1950 Sex: F Assigned Patient Location: CARD Current Patient Location: CARD Accession/Order Number: [id number] Exam Date: 10/18/2023 09:50 Report Date: 10/18/2023 [...] Signed By: 10/18/23 1129 DD/ 1126 TD/TT: Internet Sales Associate: Procedure Note Radiology, Radiologist, MD - 10/18/2023 [place] [address] Ultrasound Report Signed Patient: ASYA ULLOA IMR#: [id number] : 1950cct:[id number] Age/Sex: 73 / FADM Date: 10/18/23 Loc: CARD Attending Dr: Non-Staff Physician Pedro Ordering Physician: PhysicianNon-Staff Pedro Date of Service: 10/18/23 Procedure(s): US carotid duplex BI Accession Number(s): [id number] cc: PEGGY WHITLEY ; Physician,ConradoStaff Pedro The [place] [address] Patient Name: ASYA ULLOA MRN: [id number] date: 1950 Sex: F Assigned Patient Location: CARD Current Patient Location: CARD Accession/Order Number: [id number] Exam Date: 10/18/2023 09:50 Report Date: 10/18/2023 [...] US Thresholds (Reference: Jonathan EG, et al. [id number]; 214:247-252) Stenosis (%) PSV (cm/sec) VICA/VCCA 0-49 <150 <2.5 50-69 150-225 2.5-4.0 >70 >225 >4.0 Electronically authenticated by: LEXA DYSON Date: 10/18/2023 11:26 Dictated By: Lexa Dyson M.D. Signed By:10/18/23 1129 DD/ 1126 TD/TT: Internet Sales Associate: us Generic External Data Provider IMG US PROCEDURES Final Result documented in this encounter Visit Diagnoses Not on filedocumented in this encounter Care Teams Plating Operator Relationship Specialty Start Date End Date Peggy Whitley MD [address] [place] [address] PCP - ACO Reach 01/05/23 Peggy Whitley MD [address] [place] [address] PCP - General Family Medicine 02/08/23 11/02/23 Hannah Brian MD [address] [place] [address] PCP - General Family Medicine 11/03/23 documented as of this encounter
--- OUTSIDE RECORDS SUMMARY | 2025-05-19 11:48 | XMS_ITS ---
Author Organization [facility] Address [address] [place] [address] Care Team Providers Care Reel Fed Printer Name Role Phone Isaac Nazario MD Unavailable [phone] Hannah Brian MD Primary Care Provider [phone] Chronic Care Management (CCM) Status:Enrolled (Active) Start date:01/25/2019 Enrollment date:01/25/2019 Overview 10/12/23, 1:51 PM - Loida Nathan LPN- Patient gives verbal consent to be enrolled in CCM Program andunderstands there could be a bill for this service. Case Team Name Relationship Phone Loida Nathan LPN(Responsible Staff) Clinical Advoc ate [phone] Continued Care and Services Coordination
--- OUTSIDE RECORDS SUMMARY | 2025-05-19 11:54 | XMS_ITS | CCD ---
Author Organization [facility] Inform ion Partnership [facility] Care Team Providers Care Calenderer Name Role Phone Peggy Nazario Primary Care Physician [phone] Micheline Sorto MD Unavailable Johan Henriquez MD Unavailable Peggy Nazario Primary Care Provider [phone] Peggy Nazario MD Unavailable [phone] Peggy Nazario MD Primary Care Provider [phone] Alea Harley MD Unavailable Alea Harley MD [...] Cooper Admitting UnavailMD Eb Walter Consulting Unava ilEb Friedman Consulting Unavaila ble [facility] Consulting Unavailable Koby Masterson Attending Unavailable Micheline BROOKS Attending Unavailable Micheline BROOKS Referring Unavailable Micheline BROOKS Attending Unavailable Jeff Cross Attending Unavailable DO Parveen Ayers S. Attending Unavailable DO Parveen Ayers Attending Unavailable Koby Masterson Attending Unavailable Jayson Calloway Attending Unavailable NONE, XXXX Referring Unavailable Johan HENRIQUEZ Admitting Unavailable Johan HENRIQUEZ Attending Unavailable AMINA PETERSEN Admitting Unavailable DAWSON PANIAGUA Attending Unavailable ALEA HARLEY Referring Unavailable NAZARIO, PEGGY JAYDE Primary Care Unavailabl e VASAVADA, RAPHAEL P Referring Unavailable VASAVADA, RAPHAEL P Attending Unavailable NAZARIO, [facility] Primary Care Unavailabl e NAZARIO, [facility] Primary Care Unavailabl e ALEA HARLEY F Referring Unavailable NAZARIO, [facility] Primary Care Unavailabl e NITHYA, MICHELINE Referring Unavailable NAZARIO, [facility] Primary Care Unavailabl e VASAVADA, RAPHAEL P Attending Unavailable SELF Referring Unavailable ALEA HARLEY Referring Unavailable NAZARIO, [facility] Primary Care Unavailabl e ANA RIVAS Attending Unavailable NAZARIO, PETER JAYDE Primary Care Unavailabl e NAZARIO, [facility] Primary Care Unavailabl e NITHYA, MICHELINE Attending Unavailable NITHYA, MICHELINE Referring Unavailable YECENIA GLEZ Admitting Unavailable NAZARIO, [facility] Primary Care Unavailabl e YECENIA GLEZ Attending Unavailable NAZARIO, [facility] Primary Care Unavailabl e NITHYA, MICHELINE Referring Unavailable NITHYA, MICHELINE Referring Unavailable NAZARIO, [facility] Primary Care Unavailabl e NITHYA, MICHELINE Referring Unavailable PRIETO VILLALBA Attending Unavailable NAZARIO, [facility] Primary Care Unavailabl e NITHYA, MICHELINE Referring Unavailable NAZARIO, [facility] Primary Care Unavailabl e NAZARIO, [facility] Primary Care Unavailabl e VASAVADA, RAPHAEL P Referring Unavailable VASAVADA, RAPHAEL P Attending Unavailable NITHYA, MICHELINE Referring Unavailable ALEA HARLEY Attending Unavailable NAZARIO, [facility] Primary Care Unavailabl e NAZARIO, [facility] Primary Care Unavailabl e VASAVADA, RAPHAEL P Attending Unavailable SELF Referring Unavailable Hannah Brian MD Primary Care Provider Peggy Nazario MD Primary Care Provider Hannah Brian MD Primary Care Provider PATTY YAO Attending Unavailable PATTY YAO Admitting Unavailable Jayson Calloway Attending Unavailable Jayson Calloway Attending Unavailable Jayson Calloway Admitting Unavailable Jayson Calloway Attending Unavailable Jayson Calloway Admitting Unavailable Jayson Calloway Attending Unavailable Layton Crawford Attending Unavailable MAXIMILIAN, PATTY Referring Unavailable ROGER, RADHA Referring Unavailable MOUKARBEL, RAFAEL Attending Unavailable MOUKARBEL, RAFAEL Referring Unavailable MAXIMILIAN, PATTY Referring Unavailable MOUKARBEL, RAFAEL Attending Unavailable MAXIMILIAN, PATTY Admitting Unavailable MAXIMILIAN, PATTY Attending Unavailable MOUKARBEL, RAFAEL Admitting Unavailable MOUKARBEL, RAFAEL Attending Unavailable MAXIMILIAN, PATTY Referring Unavailable MAXIMILIAN, PATTY Attending Unavailable MOUKARBEL, RAFAEL Attending Unavailable CARLOS ALBERTO, MARJ Attending Unavailable MAXIMILIAN, PATTY Referring Unavailable CARLOS ALBERTO, MARJ Attending Unavailable MOUKARBEL, RAFAEL Attending Unavailable MOUKARBEL, RAFAEL Referring Unavailable MAXIMILIAN, PATTY Referring Unavailable ROGER, RADHA Referring Unavailable MOUKARBEL, RAFAEL Referring Unavailable MAXIMILIAN, PATTY Referring Unavailable SHERLYN SHINE Attending Unavailable SNEHAL, HANNAH De Leon Attending Unavailable SNEHAL, HANNAH De Leon Attending Unavailable SNEHAL, HANNAH De Leon Attending Unavailable SNEHAL, HANNAH De Leon Attending Unavailable SNEHAL, HANNAH De Leon Attending Unavailable FÁTIMASHERLYN Attending Unavailable DEBSTEPHAN GAITAN Attending Unavailable RICKIE AVILES Attending Unavailab le SNEHAL, HANNAH De Leon Attending Unavailable SNEHAL, HANNAH De Leon Attending Unavailable SNEHAL, HANNAH De Leon Attending Unavailable SNEHAL, HANNAH De Leon Attending Unavailable Allergies Allergy Classification Reported Allergen(s) Allergy Type Date of Onset Reaction(s) Facility (20 sources) Cephalexin; Translations: [cephalexin] Drug Allergy 3 GI intolerance, Unknown [facility] (20 sources) Egg; Translations: [Eggs] Food allergy Unknown (qualifier value) [facility] (20 sources) Meperidine; Translations: [meperidine] Drug Allergy 0 Syncope (disorder), Other: See Comments [facility] (20 sources) Morphine; Translations: [morphine] Drug Allergy 3 Unknown [facility] (20 sources) Sulfonamides (Antibiotic); Translations: [sulfa drugs] Drug allergy Nausea [facility] (2 sources) Aspirin; Translations: [ASPIRIN] Drug Allergy 0 Other: See Comments [facility] (9 sources) Latex; Translations: [LATEX] Drug Intolerance 3 Rash, Hives [facility] (20 sources) Aluminum aspirin Drug Allergy 0 [facility] (20 sources) Amoxicillin; Translations: [AMOXICILLIN] Drug Allergy 3 Diarrhea [facility] (20 sources) Erythromycin; Translations: [ERYTHROMYCIN] Drug Allergy 3 Unknown [facility] (20 sources) Latex Propensity to adverse reactions 3 Hives, Rash [facility] (20 sources) Meperidine Drug Allergy 3 Unknown [facility] (20 sources) Sulfonamides (Antibiotic) Drug Allergy 3 GI intolerance, Intolerance [facility] (20 sources) WHEAT DEXTRIN; Translations: [WHEAT BRAN] Drug Allergy 3 [facility] (20 sources) WHEAT DEXTRIN Drug Allergy 3 [facility] (5 sources) Eggs Or Egg-Derived Products Drug Allergy 3 [facility] (15 sources) egg extract; Translations: [EGG] Drug Allergy 4 Intolerance, GI Upset [facility] (4 sources) Meperidine; Translations: [Demerol HCl] Drug Allergy [facility] Repository (2 sources) Sulfonamides (Antibiotic); Translations: [SULFA (SULFONAMIDE ANTIBIOTICS)] Propensity to adverse reactions to drug (disorder) 3 [facility] Repository (20 sources) empagliflozin; Translations: [EMPAGLIFLOZIN] Drug Allergy 4 Angioedema [facility] Work Phone: (20 sources) Egg-Derived Products Drug Allergy 3 [facility] (20 sources) Amiodarone; Translations: [AMIODARONE] Drug Allergy 4 Nausea And Vomiting [facility] (20 sources) Valsartan; Translations: [VALSARTAN] Propensity to adverse reactions 4 [facility] (1 source) EGG DERIVED; Translations: [EGG DERIVED] Propensity to adverse reactions to drug (disorder) 3 [facility] Repository (3 sources) Egg Protein-Containi ng Drug Products Drug Allergy 3 [facility] Healthcare Medications Current Medications Medication Drug Class(es) Dates Sig (Normalized) Sig (Original) amoxicillin 500 mg / clavulanate 125 mg oral tablet (2 sources) Penicillin-class Antibacterial Start: 07-19-2023 End: 08-02-2023 Augmentin 500 mg-125 mg Tab 1 tab(s), Oral, q24hr for 14 day(s), 14 tab(s), Refill(s) 0, [facility], 165, cm, 07/19/23 15:21:00 EST, Height/Length [...] BID, # 60 tab(s), Refills(s) 0, Pharmacy: [facility] #[id number], 165, cm, 07/02/23 21:30:00 EST, Height/Length Dosing, 55.7, kg, 07/02/23 21:30:00 EST, Weight Dosing Start Date: 07/11/23 Status: Ordered Start: 07-11-2023 take 1 tablet by antonio th twice daily Eliquis 5 mg oral tablet 5 mg = 1 tab(s), Oral, BID, # 60 tab(s), Refills(s) 0, Pharmacy: [facility] #[id number], 165, cm, 07/02/23 21:30:00 EST, Height/Length Dosing, 55.7, kg, 07/02/23 21:30:00 EST, Weight Dosing Start Date: 07/11/23 Status: Ordered Start: 07-11-2023 take 1 tablet by antonio th twice daily Eliquis 5 mg oral tablet 5 mg = 1 tab(s), Oral, BID, # 60 tab(s), Refills(s) 0, Pharmacy: [facility] #[id number], 165, cm, 07/02/23 21:30:00 EST, Height/Length Dosing, [...] on above: Take 1 tablet by antonio daily at bedtime. Take 40 mg by [...] Start: 08-31-2023 take 1 tablet by antonio twice daily at mealtime carvedilol (COREG) 12.5 [...] day(s), # 28 tab(s), Refills(s) 0, Pharmacy: [facility], 165, cm, 10/05/23 18:07:00 EST, Height/Length [...] completed, # 2 tab(s), Refills(s) 0, Pharmacy: [facility] #[id number], 165, cm, 04/26/23 15:23:00 EDT, Height/Length Dosing, 54.7, kg, 04/26/23 15:23:00 EDT, Weight Dosing Start Date: 04/26/23 Status: Ordered Start: 10-14-2022 take 1 tablet by antnoio th once daily Cipro 500 mg Tab 500 mg = 1 tab(s), Oral, Daily, Take 1 tablet the day before the procedure and 1 tablet after the procedure, # 2 tab(s), Refills(s) 0, Pharmacy: [facility], 165, cm, 10/03/22 14:34:00 EST, Height/Length Dosing, 54.7, kg, 10/03/22 14:34:00 E... Start Date: 10/14/22 Status: Ordered Start: 03-03-2022 take 1 tablet by antonio once daily Cipro 500 mg Tab 500 mg = 1 tab(s), Oral, As Directed, Take 1 tablet day before procedure, and then 1 tablet day of procedure after procedure, # 2 tab(s), Refills(s) 0, Pharmacy: [facility], 165, cm, 03/03/22 10:04:00 EDT, Height/Length Dosing, 54, kg, 02/12... Start Date: 03/03/22 Status: Ordered dexamethasone 1 mg/ml / neomycin 3.5 mg/ml / polymyxin b 92567 unt/ml ophthalmic suspension (20 sources) Aminoglycoside Antibacterial, Polymyxin-class Antibacterial, Corticosteroid Start: 10-30-2024 nrhamywz-ftkglwlbp-afxKCUUJu sone (Maxitrol) 3.5-74391-7.1 ophthalmic suspension 10/30/2024 Active Start: 10-30-2024 take 1 drop(s) into the eye(s) four times daily eosvfgrh-dnhratduh-zwwRIXFTxunik (Maxitr ol) 3.5-25335-2.1 ophthalmic suspension INSTILL 1 DROP into affected eye FOUR TIMES DAILY FOR 14 DAYS 10/30/2024 Active dicyclomine hydrochloride 10 mg oral capsule (1 source) Anticholinergic Start: 07-01-2023 End: 07-08-2023 take 1 capsule by mouth four times daily Bentyl 10 mg Cap 10 mg = 1 cap(s), Oral, QID, X 7 day(s), # 14 cap(s), Refills(s) 0, Pharmacy: [facility] #[id number], 165, cm, 06/30/23 19:37:00 EST, Height/Length Dosing, [...] day (at bedtime), 42.5 gm, Refill(s) 6, [facility], 165.1, cm, 01/28/23 21:34:00 EDT, Height/Length Dosing, 54.5, kg, 01/28/23 21:34:00 EDT, Weight Dosing Start Date: 03/20/23 Status: Ordered Start: 03-03-2022 estradiol 0.1 mg/g vaginal cream 1 gm, Vaginal, MonFri, # 42.5 gm, Refills(s) 6, Pharmacy: [facility], 165, cm, 03/03/22 10:04:00 EDT, Height/Length Dosing, 54, kg, 03/03/22 10:04:00 EDT, Weight Dosing Start Date: 03/03/22 Status: Ordered Start: 02-26-2021 End: 08-28-2023 estradiol (ESTRACE) 0.01 % ( 0.1 mg/gram) vaginal cream Use 1 g vaginally. 0 02/26/2021 08/28/2023 Discontinued (Course of therapy completed) Start: 02-26-2021 estradiol 0.1 mg/g vaginal cream 1 gm, Vaginal, MonFri, # 42.5 gm, Refills(s) 6, Pharmacy: [facility], 165, cm, 02/23/21 13:24:00 EDT, Height/Length Dosing, 54, kg, 02/23/21 13:24:00 EDT, Weight Dosing Start Date: 02/26/21 Status: Ordered Start: 10-22-2012 End: 08-28-2023 estradiol 0.01 % (0.1 mg/g) vaginal cream Use a pea sized drop on finger, once every other day 1 Tube 10/22/2012 08/28/2023 Discontinued (Course of therapy completed) Comment on above: Use a pea sized drop on finger, once every other day Use 1 g vaginally. estradiol 0.1 mg/g vaginal cream (9 sources) Start: 03-03-2022 estradiol 0.1 mg/g vaginal cream 1 gm, Vaginal, MonFri, # 42.5 gm, Refills(s) 6, Pharmacy: [facility], 165, cm, 03/03/22 10:04:00 EDT, Height/Length Dosing, 54, kg, 03/03/22 10:04:00 EDT, Weight Dosing Start Date: 03/03/22 Status: Ordered Start: 02-26-2021 estradiol 0.1 mg/g vaginal cream 1 gm, Vaginal, MonFri, # 42.5 gm, Refills(s) 6, Pharmacy: [facility], 165, cm, 02/23/21 13:24:00 EDT, Height/Length Dosing, 54, kg, 02/23/21 13:24:00 EDT, Weight Dosing Start Date: 02/26/21 Status: Ordered famotidine 20 mg oral tablet (20 sources) Histamine-2 Receptor Antagonist Start: 05-14-2025 End: 05-14-2026 take 1 tablet by mouth at bedtime famotidine (Pepcid) 20 MG tablet Indications: Gastroesophageal reflux disease without esophagitis Take 1 tablet (20 mg) by mouth at bedtime 90 tablet 3 05/14/2025 05/14/2026 Active Start: 07-03-2024 End: 07-03-2025 take 1 tablet by mouth at bedtime famotidine (Pepcid) 40 MG tablet Indications: Gastroesophageal reflux disease without esophagitis Take 1 tablet (40 mg) by mouth at bedtime 30 tablet 04/07/2025 05/14/2025 Discontinued (Reorder) lactulose 667 mg/ml oral solution (1 source) Osmotic Laxative Start: 11-22-2023 End: 11-27-2023 take 13.333 g by mouth once daily lactulose 10 g/15 mL Oral Syrup 13.333 gm = 20 mL, Oral, Daily, X 5 day(s), # 100 mL, Refills(s) 0, Pharmacy: [facility], 165, cm, 11/22/23 16:28:00 EDT, Height/Length [...] oral tablet (20 sources) Benzodiazepine Start: 2025 End: 04-17-2025 take 1 tablet by mouth every eight hours as needed for anxiety and anxiety and anxiety LORazepam (Ativan) 0.5 MG tablet Indications: Anxiety TAKE 1 TABLET BY MOUTH EVERY 8 HOURS NEEDED FOR ANXIETY 90 tablet 04/17/2025 Active Start: 01-16-2025 take 1 tablet by [...] pantoprazole 40 mg delayed release oral tablet (17 sources) Proton Pump Inhibitor Start: 04-10-2025 take 1 tablet by mouth once daily pantoprazole (ProtoNix) 40 MG EC tablet Take 40 mg by mouth Daily 04/10/2025 Active Start: 09-26-2023 End: 12-25-2023 take 1 tablet [...] by antonio once daily. polyethylene glycol 3350 74686 mg powder for oral solution (20 sources) [...] Daily, # 255 gm, Refills(s) 0, Pharmacy: [facility] #[id number], 165, cm, 07/02/23 21:30:00 EST, Height/Length Dosing, [...] for 7 day(s), 5 mL, Refill(s) 0, [facility] #[id number], 165, cm, 12/24/21 17:41:00 EDT, Height/Length Dosing, 54, kg, 12/24/21 17:41:00 EDT, Weight Dosing Start Date: 12/24/21 Stop Date: 12/31/21 Status: Ordered Zofran ODT 4 mg Tab-Dis (12 sources) Start: 3 take 1 tablet by mouth every eight hours Zofran ODT 4 mg Tab-Dis 4 mg = 1 tab(s), Oral, q8hr, # 12 tab(s), Refills(s) 0, Pharmacy: [facility] #[id number], 165, cm, 06/30/23 19:37:00 EST, Height/Length Dosing, [...] Daily, # 60 tab(s), Refills(s) 0, Pharmacy: [facility] #[id number], 165, cm, 07/02/23 21:30:00 EST, Height/Length Dosing, [...] MG tablet Take by mouth 08/11/2023 Discontinued sodium phosphate, dibasic 35.5 mg/ml / sodium phosphate, monobasic 96.4 mg/ml enema (2 sources) Start: 025 End: sodium phosphate (Fleet) 7-19 GM/118ML enema Indications: Constipation, unspecified constipation type Insert 1 enema into the rectum 1 (one) time for 1 dose 135 mL 04/17/2025 04/21/2025 tamsulosin hydrochloride 0.4 mg oral capsule (2 [...] Coronary atherosclerosis; Translations: [Atherosclerotic heart disease of [place] coronary artery without angina pectoris] Onset: 3 [...] Chronic Hypertension with complications and secondary hypertension (4 sources) Hypertensive heart failure; Translations: [Hypertensive heart disease with heart failure] 04-07-2025 Chronic Inflammation; infection of eye (except that caused by tuberculosis or sexually transmitteddisease) (1 source) Toxic conjunctivitis; Translations: [Acute toxic conjunctivitis, bilateral] Onset: 2 Episodic Intestinal infection (2 sources) Clostridium difficile diarrhea; Translations: [Enterocolitis due to Clostridium difficile, not specified as recurrent] 05-08-2025 Episodic Malaise and fatigue (20 sources) Chronic fatigue syndrome; Translations: [Chronic fatigue syndrome] Onset: 3 01-30-2023 Chronic Menopausal disorders (20 sources) Atrophic vaginitis; Translations: [Postmenopausal atrophic vaginitis] Onset: 3 Chronic Nutritional deficiencies (20 sources) Deficiency of macronutrients; Translations: [Unspecified severe protein-calorie malnutrition] Onset: 4 08-30-2023 Chronic Other aftercare (1 source) Long-term current use of drug therapy; Translations: [Other it consultant (current) drug therapy] Onset: 3 Episodic Other [...] and ureter, unspecified] Onset: 3 Episodic Other ear and sense organ disorders (2 sources) Ear sensations - finding; Translations: [Other specified disorders of right ear] 05-14-2025 Episodic Other gastrointestinal disorders (3 sources) Constipation, unspecified; Translations: [Constipation, unspecified] Onset: 3 Episodic Other injuries and conditions due to external causes (2 sources) Contusion; Translations: [Other injury of unspecified body region, initial encounter] 11-25-2024 Episodic Other lower respiratory disease (4 sources) Cough; Translations: [Acute cough] 11-18-2024 Episodic Other lower respiratory disease (4 sources) Dyspnea on exertion; Translations: [Other forms [...] seasonal allergic rhinitis] Onset: 3 01-30-2023 Chronic Otitis media and related conditions (2 sources) Finding of fluid behind tympanic membrane; Translations: [Unspecified nonsuppurative otitis media, right ear] 05-14-2025 Episodic Staci-; endo-; and myocarditis; cardiomyopathy (except that caused by tuberculosis or sexually transmitted disease) (20 sources) Cardiomyopathy; Translations: [Other cardiomyopathies] Onset: 4 08-27-2023 Chronic Peripheral and visceral atherosclerosis (20 sources) Atherosclerosis of aorta; Translations: [Atherosclerosis of aorta] Onset: 8 Resolved: 4 01-30-2023 Chronic Pleurisy; pneumothorax; pulmonary collapse (1 source) Pleural effusion; Translations: [Pleural effusion, not elsewhere classified] Onset: 3 Episodic Poisoning by nonmedicinal substances (2 sources) Bee sting; Translations: [Toxic effect of venom of bees, accidental (unintentional), initial encounter] 05-14-2025 Episodic Prolapse of female genital organs (20 [...] of unspecified lower extremity with pain] Onset: 10-31-202 2 Episodic Viral infection (1 source) Viral [...] sources) Long-term 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; 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] Onset: 01-09-2024 09-26-2023 [...] Range Facility Urinalysis macro (dipstick) panel (U)on 05-08-2025 Bilirubin, UA Negative Negative - 4(70) +++ mg/dL [facility] Blood, UA Negative Negative - 50 Pedro/mcL [facility] Clarity, UA Clear [facility] Color, UA Yellow [facility] Glucose, UA Negative Negative - 2000(110) ++++ mg/dL [facility] Ketones, UA Negative Negative - 160(16) ++++ mg/dL [facility] Leukocytes, UA Negative Negative - 500+++ Ghislaine/mcL [facility] Nitrite, UA Negative Negative - Positive [facility] pH, UA 7 5 - 9 [facility] Protein, UA Negative Negative - 2000(20) ++++ mg/dL [facility] Spec Grav, UA 1.01 1 - 1.03 [facility] Urobilinogen, UA 0.2 0.2 - 12 mg/dL [facility] ED Clinical Summaryon 2024 ED Clinical Summary ED Clinical Summary [address] [address] ED Clinical Summary Person Information Name: HARJIT ASENCIO I Patricia/[facility] Age: 75 Years : 1950 Sex: Female Language: Sierra Leonean PCP: Snehal MCMAHON, Hannah De Leon Marital Status: MRN: [id number] Visit Id: Visit Reason: Medical screening exam; ACCIDENTALLY TOOK AN EXTRA PILL Speciality: Acuity: 5 Enc Type: Emergency Med Service: Emergency Arrival: 04/28/2025 00:50:29 Discharge: 04/28/2025 01:38:56 LOS: 000 00:48 Checkin: 04/28/2025 00:50:29 Checkout: 04/28/2025 01:38:56 Dispo Type: Home (Routine DC) EVENTS: Event Name Event Status Request Date/Time Start Date/Time Complete Date/Time Arrive Complete 04/28/2025 00:50:29 04/28/2025 00:50:29 04/28/2025 00:50:29 Document Home Meds Request 04/28/2025 00:50:29 Triage Complete 04/28/2025 00:50:29 04/28/2025 01:04:22 04/28/2025 01:04:22 Registration Complete 04/28/2025 00:52:35 04/28/2025 00:52:35 04/28/2025 00:52:35 Reg Complete Request 04/28/2025 00:52:35 Reg Bed Request Complete 04/28/2025 00:52:35 04/28/2025 00:52:35 04/28/2025 00:52:35 Isolation Screening Request 04/28/2025 01:04:22 Bed Assign Complete 04/28/2025 01:04:50 04/28/2025 01:04:50 04/28/2025 01:04:50 Dr Exam Complete 04/28/2025 01:04:50 04/28/2025 01:05:04 04/28/2025 01:05:04 RN Exam Complete 04/28/2025 01:04:50 04/28/2025 01:28:02 04/28/2025 01:28:02 Registration Request 04/28/2025 01:05:04 Discharge Complete 04/28/2025 01:33:43 04/28/2025 01:39:01 04/28/2025 01:39:01 Transfer Complete 04/28/2025 01:39:01 04/28/2025 01:39:01 04/28/2025 01:39:01 ADDRESS: [address] [place] [address] [address] [place] [id number] PHYS DOC NOTES: MEDICAL INFORMATION: Prescriptions Given: Medications to Continue with No Changes Other Medications apixaban (Eliquis 5 mg oral tablet) 1 Tablets By Mouth 2 times a day. Refills: 0. aspirin (aspirin 81 mg Oral EC Tab) 1 Tablets By Mouth every day. Refills: 0. atorvastatin (Lipitor 40 mg Tab) 1 Tablets By Mouth at bedtime. Refills: 0. bacillus coagulans-inulin (Probiotic Formula (Bacillus Coagulans) oral capsule) 1 Capsules By Mouth every day for 30 Days. Refills: 0. carvedilol (carvedilol 3.125 mg Tab) [...] By Mouth every 8 hours. Refills: 0. ondansetron (Zofran ODT 4 mg Tab-Dis) 1 Tablets By Mouth every 8 hours. Refills: 0. polyethylene glycol 3350 (polyethylene glycol 3350 17 gram packet) 17 Gram By Mouth every day. Refills: 0. vancomycin (vancomycin 125 mg Cap) 1 Capsules By Mouth 4 times a day for 10 Days. Refills: 0. PATIENT EDUCATION INFORMATION: Instructions: Clostridioides Difficile Infection Follow up: With: Address: When: [address] [place] [place] [address] [employer] ([place] In 3 days 05/01/2025 Comments: Continue next dose of vancomycin as scheduled. DIAGNOSIS: 1:Accidental medication overdose Normal [facility] ED Note-Physicianon 04-28-20 ED Note-Physician ED Note-Physician Basic Information Time Seen: Layton Crawford M.D. 04/28/2025 01:05 Chief Complaint pt concerned. she took one extra vanco 125mg pill tonight. History of Present Illness The patient is a 75-year-old female who presented to the emergency room and concerned of taking 1 extra tablet of vancomycin 125 mg. The patient states she is anxious. She wants to make sure that she will not get any side effect. The patient states she was diagnosed with C. difficile recently and her bowel movement has improved. The patient denies any complaints Review of Systems Additional ROS info: Except as noted in the above Review of Systems and in the History of Present Illness all other systems have been reviewed and are negative or noncontributory. Physical Exam Vitals & Measurements T: 36.5 ???C(Tympanic) HR: 72(Peripheral) RR: 16 BP: 162/78 SpO2: 96% HT: 165 cm WT: 60 kg BMI: 22.04 General: alert, no acute distress Skin: warm, dry Head: no trauma, normocephalic Neck: Trachea midline, no tenderness, supple Eye: normal conjunctiva, sclera clear Cardiovascular: regular rate and rhythm Respiratory: Lungs CTA, respirations non labored, breath sounds equal Gastrointestinal: soft, non distended, no tenderness Extremities: no deformity, no trauma Neurological: Alert and oriented, speech normal, no focal neuro deficits Psychiatric: cooperative, affect anxious Medical Decision Making MEDICAL DECISION MAKING Number and Complexity of Problems Differential Diagnosis: [] [facility] Data External documents reviewed: [] My EKG interpretation: [] My CT interpretation: [] My X-ray interpretation: [] My Ultrasound interpretation: [] Decision rules/scores evaluated: [] Discussed with: [] Treatment and Disposition ED Course: The patient presented concerned that she took 1 extra tablet of vancomycin 125 mg orally. She has no complaints other than feeling anxious about taking the extra pill. The vital signs are stable. Will discharge patient home. She still is within the therapeutic range for the vancomycin. She is instructed to continue taking the next dose as scheduled and return to the emergency room if she develops any symptoms. Shared decision making: [] Code status: [] Assessment/Plan 1. Accidental medication overdose (T50.901A: Poisoning by unspecified drugs, medicaments and biological substances, accidental (unintentional), initial encounter) Disposition Plan Patient Discharge Condition Stable Discharge Disposition discharge home Discharge Prescription List Prescriptions No active prescription medications Follow-up With When Contact Information Hannah Brian In 3 days 05/01/[address] [place] [address]- Business (1) Additional Instructions: Continue next dose of vancomycin as scheduled. Patient Education Clostridioides Difficile Infection Problem List/Past Medical History Ongoing acid reflux Acute gastroenteritis anxiety Atrophic vaginitis Clostridium difficile diarrhea Cystocele with prolapse Dysuria Feeling of incomplete [...] Dilation of urethra, Hysterectomy, Tonsillectomy. Medications Inpatient No active inpatient medications Home aspirin 81 mg Oral EC Tab, 81 mg= 1 tab(s), Oral, Daily carvedilol 3.125 mg Tab, 3.125 mg= 1 tab(s), Oral, BID digoxin 125 mcg (0.125 mg) Tab, 125 mcg= 1 tab(s), Oral, Daily Eliquis 5 mg oral tablet, 5 mg= 1 tab(s), Oral, BID furosemide 40 mg Tab, 40 mg= 1 tab(s), Oral, Daily Lipitor 40 mg Tab, 40 mg= 1 tab(s), Oral, Bedtime LORazepam 1 mg Tab losartan 25 mg Tab, 25 mg= 1 tab(s), Oral, Daily polyethylene glycol 3350 17 gram packet, 17 gm, Oral, Daily Probiotic Formula (Bacillus Coagulans) oral capsule, 1 cap(s), Oral, Daily vancomycin 125 mg Cap, 125 mg= 1 cap(s), Oral, QID Zofran ODT 4 mg Tab-Dis, 4 mg= 1 tab(s), Oral, q8hr Zofran ODT 4 mg Tab-Dis, 4 mg= 1 tab(s), Oral, q8hr Allergies Demerol HCl (Syncope) Eggs (Unknown) Keflex (Nausea and vomiting) meperidine (AOF) morphine (Unknown cause) sulfa drugs (Nausea) Social History Alcohol - Low Risk, 08/23/2019 Current, 03/01/2020 Current, 1-2 times per year, (more content not included)... Normal [facility] Comment on above: Result Comment: Elec tronically Signed By: Yvette Vasquez, Layton Cazares\.br\Date and Time Signed: 04/28/25 03:57 EDT ED Patient Summaryon 025 ED Patient Summary ED Patient Summary [address] [address] Patient Discharge Instructions Person Information Name: HARJIT ASENCIO I Age: 75 Years Arrival Date: 04/28/2025 00:50:29 Discharge Diagnosis: 1:Accidental medication overdose Primary Care Physician: Hannah Brian MD Provider Information Primary Provider: Layton Crawford M.D. Advanced Service Attendant Cafeteria:None The exam and treatment you received in the Emergency Department were for an urgent problem and are not intended as complete care. It is important that you follow up with a doctor, nurse practitioner, or physician???s phys assistant for ongoing care. If your symptoms [...] Follow-up Instructions: With: Address: When: Hannah Brian [place] [address] Business (1) In 3 days 05/01/2025 Comments: Continue next dose of vancomycin as scheduled. In the event that this physician does not participate in your insurance network, please consult with your insurance company to find a nearby participating provider. Patient Education Materials: Clostridioides Difficile Infection A MESSAGE TO ALL PATIENTS REGARDING OPIOIDS PRESCRIPTION OPIOIDS: WHAT YOU NEED TO KNOW Prescription opioids can be used to help relieve uhtugdur-gn-neqrxn pain and are often prescribed following a [...] as well, even when taken as directed: ??? Tolerance???meaning you might need to take more of the medication for the same pain relief ??? Physical dependence???meaning you have symptoms of withdrawal when a medication is stopped ??? Increased sensitivity to pain ??? Constipation ??? Nausea, vomiting, and dry mouth ??? Sleepiness and dizziness ??? Confusion ??? Depression ??? Low levels of testosterone that can result in lower sex drive, energy, and strength ??? Itching and sweating RISKS ARE GREATER WITH: ??? History of drug misuse, substance use disorder, or overdose ??? Mental health conditions (such as depression or anxiety) ??? Sleep apnea ??? Older age (65 years and older) ??? Avoid alcohol while taking prescription opioids. Also, unless specifically advised by your health care provider, medications to avoid include: ??? Benzodiazepines (such as Xanax or Valium) ??? Muscle relaxants (such as Soma or Flexeril) ??? Hypnotics (such as Ambien or Lunesta) ??? Other prescription opioids KNOW YOUR OPTIONS Talk to your health care provider about ways to manage your pain that don???t involve prescription opioids. Some of these options may actually work better and have fewer risks and side effects. Options may include: ??? Pain relievers such as acetaminophen, ibuprofen, and naproxen ??? Some medication that are also used for depression or seizures ??? Physical therapy and exercise ??? Cognitive behavioral therapy, a psychological, goal-directed approach, in which patients learn how to modify physical, behavioral, and emotional triggers of pain and stress. IF YOU ARE PRESCRIBED OPIOIDS FOR PAIN: ??? Never take opioids in greater amounts or more often than prescribed. ??? Follow up with your primary health care provider. o Work together to create a plan on how to manage your pain. o Talk about ways to help manage your pain that don???t involve prescription opioids. o Talk about any and all concerns and side effects. ??? Help prevent misuse and abuse o Never sell or share prescription opioids. o Never use another person???s prescription opioids. ??? Store prescription opioids in a secure place and out of reach of others (this may include visitors, children, friends, and family). ??? Safely dispose of unused prescription opioids: Find your community drug take-back program or your pharmacy mail-back program, or flush them down the toilet, following guidance from the Food and Drug Administration (www.fda.gov/Drugs/Re sourcesForYou). ??? Visit www.cdc.gov/drugoverd ose to learn about the risks of opioids abuse and overdose. ??? If you believe you may be stru (more content not included)... Normal [facility] Lab Miscellaneous-LCon 04-28 Lab Miscellaneous COMMENT Invalid Interpretation Code [facility] Comment on above: Result Comment: Test Ordered: [id number] C difficile Toxins A+B, EIA C difficile Toxins A+B, EIA Positive [A ] CB Reference Range: Negative Performed at: [facility] [address] [id number] PhD Emily Fraser Performed By: #### 1 [id number] #### [facility] [address] [place] [address] O & P EXAM, ROUTINE, REFLEXo n 04-28-2025 Result 1 Comment Invalid Interpretation Code [facility] Comment on above: Result Comment: No o va, cysts, or parasites seen. One negative specimen does not rule out the possibility of a parasitic infection. Performed at: [facility] [id number] PhD Emily Fraser Performed By: #### 3 [id number] #### [facility] [address] [place] [address] O & P Exam, Routineon 2024 Ova/Para Exam Rt Final report Invalid Interpretation Code [facility] Comment on above: Result Comment: Thes e results were obtained using wet preparation(s) and trichrome stained smear. This test does not include testing for Cryptosporidium parvum, Cyclospora, or Microsporidia. Performed at: [facility] [id number] PhD Emily Fraser Performed By: #### 1 [id number] #### [facility] [address] [place] [address] C. diff by PCRon 04-24-2025 Clostridium difficile by PCR Positive Abnormal Negative [facility] Comment on above: Result Comment: Resu lts Called To Jennifer Alcaraz/Doron By dc And Read Back For Confirmation On 04/24/2025 12:20:03 EDT. This test result should be correlated with clinical presentations and medical history by a healthcare provider to determine its clinical significance. Performed By: #### 4 [id number] #### [facility] [address] [place] [id number] CDiff PCRon 04-24-2025 Cdiff Specimen Acceptable Acceptable Normal [facility] Comment on above: Performed By: #### 3 [id number] #### [facility] [address] [place] [address] Order Cancelled No, PCR to follow Normal [facility] Comment on above: Performed By: #### 3 [id number] #### [facility] [address] [place] [address] Enteric Panel by PCRon 04-24 Campylobacter group Not detected Normal [facility] Comment on above: Result Comment: Test ing was performed utilizing reverse personal injury specialist (RT), polymerase chain reaction (PCR), and array hybridization to detect specific gastrointestinal microbial nucleic acid gene sequences associated with the following pathogenic bacteria and viruses:Campylobacter Group (composed of C. coli, C. jejuni, and C. ermias), Salmonella species, Shigella species (including S. dysenteriae, S. boydii, S. sonnei and S. flexneri), Vibrio Group (composed of V. cholera and V. parahaemolyticus), Yersinia enterocolitica, Norovirus GI/GII, and Rotavirus A. In addition, EPdetects Shiga toxin 1 gene and Shiga toxin 2 gene virulence markers. Shiga toxin producing E. coli (STEC) typically harbor one or both genes that encode for Shiga toxins 1 and 2. Campylobacter group, Salmonella species, Shigella species, Vibrio group, Rotavirus A, Shiga Toxin 1, Shiga Toxin 2, Norovirus GI/GII, and Yersinia enterocolitica were tested by Verigene nulcleic acid test. Performed By: #### 1 [id number] #### [facility] [address] [place] [address] Enteric Panel Intrl QC Pass Normal [facility] Comment on above: Result Comment: Test ing was performed utilizing reverse personal injury specialist (RT), polymerase chain reaction (PCR), and array hybridization to detect specific gastrointestinal microbial nucleic acid gene sequences associated with the following pathogenic bacteria and viruses:Campylobacter Group (composed of C. coli, C. jejuni, and C. ermias), Salmonella species, Shigella species (including S. dysenteriae, S. boydii, S. sonnei and S. flexneri), Vibrio Group (composed of V. cholera and V. parahaemolyticus), Yersinia enterocolitica, Norovirus GI/GII, and Rotavirus A. In addition, EPdetects Shiga toxin 1 gene and Shiga toxin 2 gene virulence markers. Shiga toxin producing E. coli (STEC) typically harbor one or both genes that encode for Shiga toxins 1 and 2. Performed By: #### 1 [id number] #### [facility] [address] [place], [place] [id number] Norovirus GI/GII Not detected Normal [facility] Comment on above: Performed By: #### 1 [id number] #### [facility] [address] [place] [address] Rotavirus A Not detected Normal [facility] Comment on above: Performed By: #### 1 [id number] #### [facility] [address] [place] [address] Salmonella species Not detected Normal [facility] Comment on above: Result Comment: This test result should be correlated with clinical presentations and medical history by a healthcare provider to determine its clinical significance. Performed By: #### 1 [id number] #### [facility] [address] [place] [address] Shiga Tox Interp Negative Normal [facility] Comment on above: Performed By: #### 1 [id number] #### [facility] [address] [place] [address] Shiga Toxin 1 Not detected Normal [facility] Comment on above: Performed By: #### 1 [id number] #### [facility] [address] [place] [address] Shiga Toxin 2 Not detected Normal [facility] Comment on above: Performed By: #### 1 [id number] #### [facility] [address] [place] [address] Shigella species Not detected Normal [facility] Comment on above: Performed By: #### 1 [id number] #### [facility] [address] [place] [address] Vibrio Group Not detected Normal [facility] Comment on above: Performed By: #### 1 [id number] #### [facility] [address] [place] [address] Yersinia enterocolitica Not detected Normal [facility] Comment on above: Performed By: #### 1 [id number] #### [facility] [address] [place] [address] Lab Miscellaneous-LCon 04-24 Source stool Invalid Interpretation Code [facility] Comment on above: Performed By: #### 1 [id number] #### [facility] [address] [place] [address] Test Code 467481 Invalid Interpretation Code [facility] Comment on above: Performed By: #### 1 [id number] #### [facility] [address] [place] [address] Test Name Cdiff Toxin EIA Invalid Interpretation Code [facility] Comment on above: Performed By: #### 1 [id number] #### [facility] [address] [place] [address] BMPon 04-19-2025 CO2 [Moles/Vol] 26 mmol/L Normal 21-31 [facility] Comment on above: Performed By: #### 2 [id number] #### [facility] [address] [place] [address] Anion gap [Moles/Vol] 11 mmol/L Normal 6-16 [facility] Comment on above: Performed By: #### 2 [id number] #### [facility] [address] [place] [address] BUN/Creat Ratio 14 No Units Normal 10-20 [facility] Comment on above: Performed By: #### 2 [id number] #### [facility] [address] [place] [address] Calcium [Mass/Vol] 9.6 mg/dL Normal 8.9-11.1 [facility] Comment on above: Performed By: #### 2 [id number] #### [facility] [address] [place] [address] Chloride [Moles/Vol] 103 mmol/L Normal 101-111 [facility] Comment on above: Performed By: #### 2 [id number] #### [facility] [address] [place] [address] Creatinine [Mass/Vol] 1.0 mg/dL Normal 0.5-1.3 [facility] Comment on above: Performed By: #### 2 [id number] #### [facility] [address] [place] [address] Glucose [Mass/Vol] 136 mg/dL Normal 55-199 [facility] Comment on above: Performed By: #### 2 [id number] #### [facility] [address] [place] [address] Potassium [Moles/Vol] 3.9 mmol/L Normal 3.5-5.3 [facility] Comment on above: Performed By: #### 2 [id number] #### [facility] [address] [place] [address] Sodium [Moles/Vol] 136 mmol/L Normal 135-145 [facility] Comment on above: Performed By: #### 2 [id number] #### [facility] [address] [place] [address] Urea nitrogen [Mass/Vol] 14 mg/dL Normal 5-21 [facility] Comment on above: Performed By: #### 2 [id number] #### [facility] [address] [place] [address] CBC w/ Auto Diffon 5 Basophil Absolute 0.0 E9/L Normal 0.0-0.2 [facility] Comment on above: Performed By: #### 2 [id number] #### [facility] [address] [place] [address] Basophils/100 WBC (Bld) 0.7 % Normal 0.0-2.0 [facility] Comment on above: Performed By: #### 2 [id number] #### [facility] [address] [place] [address] Eos Absolute 0.0 E9/L Normal 0.0-0.5 [facility] Comment on above: Performed By: #### 2 [id number] #### [facility] [address] [place] [address] Eosinophils/100 WBC (Bld) 0.4 % Normal 0.0-8.0 [facility] Comment on above: Performed By: #### 2 [id number] #### [facility] [address] [place] [address] Erythrocyte distribution width (RBC) [Ratio] 14.4 % High 10.9-14.2 [facility] Comment on above: Performed By: #### 2 [id number] #### [facility] [address] [place] [address] Hematocrit (Bld) [Volume fraction] 44.9 % Normal 34.0-46.0 [facility] Comment on above: Performed By: #### 2 [id number] #### [facility] [address] [place] [address] Hemoglobin (Bld) [Mass/Vol] 14.8 g/dL Normal 12.0-16.0 [facility] Comment on above: Performed By: #### 2 [id number] #### [facility] [address] [place] [address] Lymph Absolute 0.7 E9/L Low 1.0-4.0 [facility] Comment on above: Performed By: #### 2 [id number] #### [facility] [address] [place] [address] Lymphocytes/100 WBC (Bld) 10.8 % Low 14.0-50.0 [facility] Comment on above: Performed By: #### 2 [id number] #### [facility] [address] [place] [address] MCH (RBC) [Entitic mass] 29.8 pg Normal 27.0-34.0 [facility] Comment on above: Performed By: #### 2 [id number] #### [facility] [address] [place] [address] MCHC (RBC) [Mass/Vol] 33.0 g/dL Normal 31.4-36.0 [facility] Comment on above: Performed By: #### 2 [id number] #### [facility] [address] [place] [address] MCV (RBC) [Entitic vol] 90.2 fL Normal 80.0-100.0 [facility] Comment on above: Performed By: #### 2 [id number] #### [facility] [address] [place] [address] Stephenson Absolute 0.4 E9/L Normal 0.2-1.0 [facility] Comment on above: Performed By: #### 2 [id number] #### [facility] [address] [place] [address] Monocytes/100 WBC (Bld) 5.2 % Normal 4.0-14.0 [facility] Comment on above: Performed By: #### 2 [id number] #### [facility] [address] [place] [address] Neutro Absolute 5.5 E9/L Normal 2.0-7.5 [facility] Comment on above: Performed By: #### 2 [id number] #### [facility] [address] [place] [address] Neutro Auto 82.9 % High 36.0-75.0 [facility] Comment on above: Performed By: #### 2 [id number] #### [facility] [address] [place] [address] Platelet 248.0 E9/L Normal 150.0-500.0 [facility] Comment on above: Performed By: #### 2 [id number] #### [facility] [address] [place] [address] Platelet mean volume (Bld) [Entitic vol] 8.2 fL Normal 6.4-10.8 [facility] Comment on above: Performed By: #### 2 [id number] #### [facility] [address] [place] [address] RBC 5.0 E12/L Normal 4.3-5.9 [facility] Comment on above: Performed By: #### 2 [id number] #### [facility] [address] [place] [address] WBC 6.7 E9/L Normal 4.0-11.0 [facility] Comment on above: Performed By: #### 2 [id number] #### [facility] [address] [place] [address] CT Abdomen/Pelvis w/o Contra ston 04-19-2025 CT Abdomen/Pelvis w/o Contrast Exam Date/Time: 04/19/2025 13:53 EDT Reason for Exam: Pain Report IMPRESSION: NO ACUTE ABDOMINOPELVIC PROCESS. EXAM: CT Abdomen/Pelvis w/o Contrast History: Abdominal pain. Vomiting. Diarrhea. Technique: Multiple contiguous axial images were obtained of the abdomen and pelvis from the level of the lung bases through the ischial tuberosities without contrast. Multiplanar reformats were obtained. Unless otherwise stated, incidental findings identified in this report do not require routine follow-up imaging. Comparison: CT abdomen pelvis 11/22/2023 Findings: Lung bases are clear. Heart size is enlarged. Lack of intravenous contrast precludes optimal evaluation of the abdominal and pelvic viscera. The unenhanced liver, gallbladder, spleen, stomach, pancreas, and adrenal glands appear within normal limits. The unenhanced kidneys appear within normal limits. No urinary tract calculi or hydronephrosis. Urinary bladder is poorly distended but otherwise unremarkable. The uterus is absent. Abdominal aorta is nonaneurysmal. Atherosclerotic calcification of the abdominal aorta. No retroperitoneal or abdominal/pelvic lymphadenopathy. No small bowel obstruction. No overt colonic mass or pericolonic inflammation. No findings of acute appendicitis. No free fluid or free air. No acute osseous abnormality. Mild degenerative changes of the spine. Bilateral L5 spondylolysis without spondylolisthesis. All CT scans at this facility use dose modulation, iterative reconstruction, and/or weight based dosing when appropriate to reduce radiation dose to as low as reasonably achievable. Technical Comments: Report Rectal Contrast Given? No Ordering Provider: Jayson Calloway FINAL REPORT Dictated: 04/19/2025 2:13 pm Gregg Joseph DO Signed (Electronic Signature): 04/19/2025 2:13 pm Signed by: Gregg Joseph DO Transcribed by: ARAVIND Technologist: EVA Doty [facility] ED Clinical Summaryon 2024 ED Clinical Summary ED Clinical Summary [place] [id number] ED Clinical Summary Person Information Name: HARJIT ASENCIO I [facility] Age: 75 Years : 1950 Sex: Female Language: Sierra Leonean PCP: Hannah Brian MD Marital Status: Visit Id: Visit Reason: Diarrhea; Abdominal pain; Vomiting; ABD PAIN, BLOOD IN URINE, N/V, PT COMPLAINS OF SMELLY BOWEL MOVEMENTS Speciality: Acuity: 3 Enc Type: Emergency Med Service: Emergency Arrival: 04/19/2025 09:40:51 Discharge: 04/19/2025 15:11:43 LOS: 000 05:31 Checkin: 04/19/2025 09:40:51 Checkout: 04/19/2025 15:11:43 Dispo Type: Home (Routine DC) EVENTS: Event Name Event Status Request Date/Time Start Date/Time Complete Date/Time Arrive Complete 04/19/2025 09:40:51 04/19/2025 09:40:51 04/19/2025 09:40:51 Document Home Meds Request 04/19/2025 09:40:51 Triage Complete 04/19/2025 09:40:51 04/19/2025 09:54:04 04/19/2025 09:54:04 Bed Assign Complete 04/19/2025 09:46:39 04/19/2025 09:46:39 04/19/2025 09:46:39 Dr Exam Complete 04/19/2025 09:46:39 04/19/2025 09:50:30 04/19/2025 09:50:30 RN Exam Complete 04/19/2025 09:46:39 04/19/2025 09:55:19 04/19/2025 09:55:19 Registration Complete 04/19/2025 09:50:30 04/19/2025 10:04:24 04/19/2025 10:04:24 Isolation Screening Request 04/19/2025 09:54:05 Reg Complete Request 04/19/2025 10:04:24 Reg Bed Request Complete 04/19/2025 10:04:24 04/19/2025 10:04:24 04/19/2025 10:04:24 Pending Labs Complete 04/19/2025 10:20:34 04/19/2025 11:44:58 Lab Complete 04/19/2025 10:20:34 04/19/2025 11:44:03 Pending Labs Request 04/19/2025 10:20:47 CT Complete 04/19/2025 10:53:17 04/19/2025 13:43:26 04/19/2025 13:53:59 Pending Labs Complete 04/19/2025 11:01:20 04/19/2025 11:01:20 04/19/2025 11:35:13 Lab Complete 04/19/2025 11:01:20 04/19/2025 11:01:20 04/19/2025 11:35:13 Pending Labs Complete 04/19/2025 11:14:34 04/19/2025 11:14:34 04/19/2025 11:14:34 Discharge Complete 04/19/2025 14:39:39 04/19/2025 15:11:52 04/19/2025 15:11:52 Meds Admin Complete 04/19/2025 14:48:01 04/19/2025 14:58:50 Transfer Complete 04/19/2025 15:11:52 04/19/2025 15:11:52 04/19/2025 15:11:52 ADDRESS: [address] [place] [phone] PHYS DOC NOTES: MEDICAL INFORMATION: Prescriptions Given: New Medications [facility], [address] [place], [place] [id number], [phone] bacillus coagulans-inulin (Probiotic Formula (Bacillus Coagulans) oral capsule) 1 Capsules By Mouth every day for 30 Days. Refills: 0. Medications to Continue Taking That Have Changed [facility], [address] [place], [place] [id number], [phone] START: ondansetron (Zofran ODT 4 mg Tab-Dis) 1 Tablets By Mouth every 8 hours. Refills: 0. Other Medications START: ondansetron (Zofran ODT 4 mg Tab-Dis) 1 [...] Tablets By Mouth every day. Refills: 0. polyethylene glycol 3350 (polyethylene glycol 3350 17 gram packet) 17 Gram By Mouth every day. Refills: 0. PATIENT EDUCATION INFORMATION: Instructions: Abdominal Pain, Adult Follow up: With: Address: When: Ana Turner [address], [address] [place] [phone] Business (1) In 3 days 04/22/2025 Comments: Follow-up with GI for further evaluation With: Address: When: Hannah Brian [address] [place] [address] Business (1) In 3 days 04/22/2025 Comments: Call the office of your primary care doctor to arrange for follow-up within the above-stated timeframe. Follow-up with your primary care doctor about this ED visit. You should review your labs, imaging, and diagnoses from this ED visit with your primary care physician. There are occasionally non-emergent findings that require additional follow-up after your ED visit. If you were prescribed medications you should discuss possible side-effects and drug interactions with your pharmacist. Call 911 or go to the nearest Emergency Department if you develop any new or worsening symptoms. DIAGNOSIS: Abdominal pain, acute; Diarrhea Normal [facility] ED Note-Physicianon 04-19-20 ED Note-Physician ED Note-Physician Basic Information Time Seen: Jayson Calloway DO 04/19/2025 09:50 Chief Complaint patient presents with adominal pain, vomiting and diarrhea since last monday History of Present Illness 75-year-old female to the emergency department chief complaint of abdominal pain, vomiting, diarrhea. Symptoms been ongoing for the last 2 weeks. Patient reports she believes she ate a bad fish sandwich and has had the symptoms ever since. She reports diarrhea is nonbloody, occasionally mucousy. She denies any fever, sweats, chills. She has not had any vomiting for the last week. She has not seen her primary care doctor. She reports several ER visits for this without any answers including labs and imaging of her abdomen. She reports symptoms worse this morning with left lower quadrant pain prompting her visit. Review of Systems A 10 point review of systems is negative except as noted above. Medical and Surgical History: Reviewed and noted Social history: Lives at home Tobacco: Denies Physical Exam Vitals & Measurements T: 37.1 ???C(Oral) HR: 57(Peripheral) RR: 20 BP: 139/72 SpO2: 97% HT: 165.10 cm WT: 58.4 kg BMI: 21.42 VITALS: I have reviewed the triage vital signs. GENERAL: Elderly female in no distress NEURO: Alert and oriented. Moves all extremities. Face is symmetric and expressive. EYES: PERRL. No scleral icterus or conjunctival injection. No discharge. HENT: Normocephalic, atraumatic. Hearing is grossly intact. Nares grossly patent and without discharge. Mucous membranes moist. NECK: No JVD. Patient moves neck without restriction. CARDIO: Rhythm regular. Normal rate. No murmur, rub, or gallop. Pulses equal bilaterally in the upper and lower extremity. No lower extremity edema. PULM: Lungs clear to auscultation in all mccain. No wheezes, rales, or rhonchi. No conversational dyspnea. No splinting, stridor, or accessory muscle use. GI/: Abdomen is soft. Mild left lower quadrant tenderness. normoactive bowel sounds. EXTREMITIES: Symmetric muscle bulk. No joint swelling. No clubbing, cyanosis, or deformity. SKIN: Warm and dry. Normal turgor. No rash or lesions appreciated. PSYCH: Strange affect Medical Decision Making 75-year-old female to the emergency department with chief complaint of left lower quadrant abdominal pain. She has had 2 weeks of mucousy diarrhea after eating a fish sandwich per her report. Vital stable, the patient is afebrile. She has mild tenderness in the left lower quadrant at best. She reports she has had intermittent hematuria for weeks as well. She has not seen her primary care doctor. She reports several ER visits for this. Patient has been seen at [facility] twice for this. She had labs and CT imaging done. There are no acute findings. She was unable provide a stool sample at that time despite the report of profuse diarrhea. Will repeat labs today. Stool cultures are ordered if she is able to provide. Will obtain repeat imaging of the abdomen for evaluation of diverticulitis. Patient agrees with this plan. CT without acute findings. Lab work is unremarkable. Patient unable to provide stool sample after several hours. Patient with odd affect, perseverating, asked many questions/asked the same question multiple times. Has multiple rotating complaints during her visit. Is on the call light frequently. I did call and discussed with her PCP Dr. Brian. She is very well-known to Dr. Brian. She has upcoming follow-up appoint with Dr. Brian for this complaint. Findings cussed with patient. Will treat her with probiotic and Zofran. Gi referral. Outpatient script for stool studies. Return precautions were discussed. All questions were answered. The patient was discharged home. Assessment/Plan Abdominal pain, acute (R10.9: Unspecified abdominal pain) Diarrhea (R19.7: Diarrhea, unspecified) Orders: Basic Metabolic Panel CBC w/ Auto Diff Clostridium Difficile PCR CT Abdomen/Pelvis w/o Contrast Enteric Panel by PCR Hepatic Function Panel Lipase Level UA with Cult Rflx Disposition Plan Patient Discharge Condition Stable Discharge Disposition Home Discharge Prescription List Prescriptions Probiotic Formula (Bacillus Coagulans) oral capsule, 1 cap(s), Oral, Daily Zofran ODT 4 mg Tab-Dis, 4 mg= 1 tab(s), Oral, q8hr Follow-up With When Contact Information Ana Turner In 3 days 04/22/2025 EDT [address] [facility], [address] [place] [phone] Business (1) Additional Instructions: Follow-up with GI for further evaluation Hannah Brian In 3 days 04/22/[address] [place] [address]- Business (1) Additional Instructions: Call the office of your primary care doctor to arrange for follow-up within the above-stated timeframe. Follow-up with your primary care doctor about this ED visit. You should review your labs, imaging, and diagnoses from this ED visit with your primary care physician. There are occasionally non-emergent fi (more content not included)... Normal [facility] Comment on above: Result Comment: Elec tronically Signed By: Jayson Calloway DO\.zak\Date and Time Signed: 04/19/25 16:47 EDT ED Patient Summaryon 025 ED Patient Summary ED Patient Summary [facility] [address] [place], [place] [address] Patient Discharge Instructions Person Information Name: HARJIT ASENCIO I Age: 75 Years Arrival Date: 04/19/2025 09:40:51 Discharge Diagnosis: Abdominal pain, acute; Diarrhea Primary Care Physician: Hannah Brian MD Provider Information Primary Provider: Jayson Calloway DO Advanced Service Attendant Cafeteria:None The exam and treatment you received in the Emergency Department were for an urgent problem and are not intended as complete care. It is important that you follow up with a doctor, nurse practitioner, or physician???s phys assistant for ongoing care. If your symptoms become worse or you do not improve as expected and you are unable to reach your usual health care provider, you should return to the Emergency Department. We are available 24 hours a day. HARJIT ASENCIO I has been given the following list of patient education materials, prescriptions and follow-up instructions: Follow-up Instructions: With: Address: When: Ana Turner [address] [place] [address], [address] [place] [phone] [facility] () In 3 days 04/22/2025 Comments: Follow-up with GI for further evaluation With: Address: When: Hannah Brian [address] [place] [phone] [facility] () In 3 days 04/22/2025 Comments: Call the office of your primary care doctor to arrange for follow-up within the above-stated timeframe. Follow-up with your primary care doctor about this ED visit. You should review your labs, imaging, and diagnoses from this ED visit with your primary care physician. There are occasionally non-emergent findings that require additional follow-up after your ED visit. If you were prescribed medications you should discuss possible side-effects and drug interactions with your pharmacist. Call 911 or go to the nearest Emergency Department if you develop any new or worsening symptoms. In the event that this physician does not participate in your insurance network, please consult with your insurance company to find a nearby participating provider. Patient Education Materials: Abdominal Pain, Adult A MESSAGE TO ALL PATIENTS REGARDING OPIOIDS PRESCRIPTION OPIOIDS: WHAT YOU NEED TO KNOW Prescription opioids can be used to help relieve prlohktn-eh-gpqcyb pain and are often prescribed following a [...] as well, even when taken as directed: ??? Tolerance???meaning you might need to take more of the medication for the same pain relief ??? Physical dependence???meaning you have symptoms of withdrawal when a medication is stopped ??? Increased sensitivity to pain ??? Constipation ??? Nausea, vomiting, and dry mouth ??? Sleepiness and dizziness ??? Confusion ??? Depression ??? Low levels of testosterone that can result in lower sex drive, energy, and strength ??? Itching and sweating RISKS ARE GREATER WITH: ??? History of drug misuse, substance use disorder, or overdose ??? Mental health conditions (such as depression or anxiety) ??? Sleep apnea ??? Older age (65 years and older) ??? Avoid alcohol while taking prescription opioids. Also, unless specifically advised by your health care provider, medications to avoid include: ??? Benzodiazepines (such as Xanax or Valium) ??? Muscle relaxants (such as Soma or Flexeril) ??? Hypnotics (such as Ambien or Lunesta) ??? Other prescription opioids KNOW YOUR OPTIONS Talk to your health care provider about ways to manage your pain that don???t involve prescription opioids. Some of these options may actually work better and have fewer risks and side effects. Options may include: ??? Pain relievers such as acetaminophen, ibuprofen, and naproxen ??? Some medication that are also used for depression or seizures ??? Physical therapy and exercise ??? Cognitive behavioral therapy, a psychological, goal-directed approach, in which patients learn how to modify physical, behavioral, and emotional triggers of pain and stress. IF YOU ARE PRESCRIBED OPIOIDS FOR PAIN: ??? Never take opioids in greater amounts or more often than prescribed. ??? Follow up with your primary health care provider. o Work together to create a plan on how to manage your pain. o Talk about ways to help manage your pain that don???t involve prescription opioids. o Ta (more content not included)... Normal [facility] Extra Blueon 04-19-2025 Tube Collected Plasma Yes Invalid Interpretation Code [facility] Comment on above: Performed By: #### 1 [id number] #### [facility] [address] [place] [address] Hep Func Panelon 04-19-2025 Albumin [Mass/Vol] 4.4 g/dL Normal 3.3-5.0 [facility] Comment on above: Performed By: #### 2 [id number] #### [facility] [address] [place] [address] Albumin/Globulin [Mass ratio] 1.6 {ratio} Normal 1.1-2.2 [facility] Comment on above: Performed By: #### 2 [id number] #### [facility] [address] [place] [address] Alk Phos 59 Int._Unit/L Normal 21-98 [facility] Comment on above: Performed By: #### 2 [id number] #### [facility] [address] [place] [address] ALT 25 Int._Unit/L Normal 6-46 [facility] Comment on above: Performed By: #### 2 [id number] #### [facility] [address] [place] [address] AST 27 Int._Unit/L Normal 5-43 [facility] Comment on above: Performed By: #### 2 [id number] #### [facility] [address] [place] [address] Bili Direct 0.1 mg/dL Normal 0.0-0.4 [facility] Comment on above: Performed By: #### 2 [id number] #### [facility] [address] [place] [address] Bili Indirect 1.0 mg/dL High 0.1-0.9 [facility] Comment on above: Performed By: #### 2 [id number] #### [facility] [address] [place] [address] Bili Total 1.1 mg/dL Normal 0.0-1.1 [facility] Comment on above: Performed By: #### 2 [id number] #### [facility] [address] [place] [address] Globulin (S) [Mass/Vol] 2.7 g/dL Normal 1.4-4.0 [facility] Comment on above: Performed By: #### 2 [id number] #### [facility] [address] [place] [address] Protein [Mass/Vol] 7.1 g/dL Normal 6.0-7.8 [facility] Comment on above: Performed By: #### 2 [id number] #### [facility] [address] [place] [address] Lipase Levelon 04-19-2025 Lipase Lvl 23 unit/L Normal 13-58 [facility] Comment on above: Performed By: #### 2 [id number] #### [facility] [address] [place] [address] UA with Cult Rflxon 04-19-20 25 Color (U) Light-Yellow Normal Yellow [facility] Comment on above: Result Comment: Micr oscopic readings are only performed on those samples that meet specific criteria set forth by [facility]. Performed By: #### 4 [id number] #### [facility] [address] [place] [address] Glucose (U) [Mass/Vol] Negative Normal Negative [facility] Comment on above: Performed By: #### 4 [id number] #### [facility] [address] [place] [address] Ketones Ql (U) Negative Normal Negative [facility] Comment on above: Performed By: #### 4 [id number] #### [facility] [address] [place] [address] UA Blood Negative Normal Negative [facility] Comment on above: Performed By: #### 4 [id number] #### [facility] [address] [place] [address] UA Clarity Clear Normal Clear [facility] Comment on above: Performed By: #### 4 [id number] #### [facility] [address] [place] [address] UA Leuk Est Negative Normal Negative [facility] Comment on above: Performed By: #### 4 [id number] #### [facility] [address] [place] [address] UA Nitrite Negative Normal Negative [facility] Comment on above: Performed By: #### 4 [id number] #### [facility] [address] [place] [address] UA pH 6.5 Invalid Interpretation Code 5.0-9.0 [facility] Comment on above: Performed By: #### 4 [id number] #### [facility] [address] [place] [address] UA Protein Negative Normal Negative [facility] Comment on above: Performed By: #### 4 [id number] #### [facility] [address] [place] [address] UA Spec Grav 1.005 Invalid Interpretation Code 1.005-1.030 [facility] Comment on above: Performed By: #### 4 [id number] #### [facility] [address] [place] [address] UA Urobilinogen Negative Normal Negative [facility] Comment on above: Performed By: #### 4 [id number] #### [facility] [address] [place] [address] Urobilinogen (U) [Mass/Vol] Negative Normal Negative [facility] Comment on above: Performed By: #### 4 [id number] #### [facility] [address] [place] [address] UA Spec Desc Clean Catch Normal [facility] Comment on above: Performed By: #### 4 [id number] #### [facility] [address] [place] [address] eGFRon 04-19-2025 eGFR 58 mL/min/1.73 m2 Low >=[address] [facility] Comment on above: Performed By: #### 1 [id number] #### [facility] [address] [address] [facility] ANES - Attestation signed by Gabe Martinez MD at 05/02/2025 5:33 PM By using the attestations below, the signing clinician agrees that I have read and verify that the documentation has been personally reviewed by me and ensure that the documentation accurately reflects the encounter. GC: I personally saw this patient on the day of the encounter with Dr. Saeed, performed the mansfield portion(s) of the service and participated in the management and confirm the resident's documentation. Please note there may be an additional personal documentation from me. Patient: Harjit Asencio Procedure Information Date/Time: 04/16/25 1200 Procedure: TRANSESOPHAGEAL ECHO (HAROON) Location: [facility] V[facility] Clinical information reviewed: Allergies Meds Physical Exam Airway Mallampati: III Cardiovascular Rhythm: regular Dental Pulmonary Neurological Abdominal Anesthesia Plan ASA 3 other (Conscious sedation) intravenous induction Anesthetic plan and risks discussed with patient. Use of blood products discussed with patient who consented to blood products. Plan discussed with attending and fellow. Additional Equipment Requests Normal [facility] HPon 04-16-2025 - Attestation signed by Gabe Martinez MD at 05/02/2025 5:32 PM By using the attestations below, the signing clinician agrees that I have read and verify that the documentation has been personally reviewed by me and ensure that the documentation accurately reflects the encounter. GC: I personally saw this patient on the day of the encounter with Dr. Saeed, performed the mansfield portion(s) of the service and participated in the management and confirm the resident's documentation. Please note there may be an additional personal documentation from me. H&P reviewed. The patient was examined and there are no changes to the H&P. Normal [facility] NURSNOTEon 04-16-2025 NURSNOTE Bedside swallow stud y completed and passed. RN educated pt on d/c instructions. This included: site care, limited physical activity, resume normal diet, future appointments, medications, and moderate sedation instructions. RN educated pt on when to notify physician and when to go to the hospital. RN encouraged pt to voice any questions or concerns, and answered any questions or concerns if pt verbalized. Pt was wheeled off of unit with all of belongings. Normal [facility] Urinalysis macro (dipstick) panel (U)on 04-07-2025 Bilirubin, UA Negative Negative - 4(70) +++ mg/dL [facility] Blood, UA Negative Negative - 50 Pedro/mcL [facility] Clarity, UA Clear [facility] Color, UA Yellow [facility] Glucose, UA Negative Negative - 2000(110) ++++ mg/dL [facility] Ketones, UA Negative Negative - 160(16) ++++ mg/dL [facility] Leukocytes, UA Negative Negative - 500+++ Ghislaine/mcL [facility] Nitrite, UA Negative Negative - Positive [facility] pH, UA 6 5 - 9 [facility] Protein, UA Negative Negative - 2000(20) ++++ mg/dL [facility] Spec Grav, UA 1.005 1 - 1.03 [facility] Urobilinogen, UA 0.2 0.2 - 12 mg/dL [facility] 36on 04-02-2025 36 Patient called vik holliday [...] for tricuspid valve. Florecita and Leonardo from [facility] rehab made aware. [facility] 03-31-2025 [facility] Cardiology - [facility] Subjective Harjit Asencio is a 75 [...] insomnia Urethral stricture Urinary frequency Urinary urgency longterm 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 Paroxysmal atrial fibrillation (CMS/HCC) Presence of biventricular automatic cardioverter/defibril lator (AICD) Nonrheumatic mitral valve regurgitation Severe mitral [...] At her recent visit with cardiology at [facility] on 09/26/2023 valsartan was stopped and low-dose lisinopril 5 mg once daily was added. The plan was to add Jardiance. There is note of her to being evaluated by CT surgery Dr. Sorto regarding candidacy for cardiac surgery and she was deemed high risk. She was also evaluated at [facility] cardiothoracic surgery. Initial workup for her mitral valve disease was started. Spironolactone was changed to half tablet twice a day instead of 1 tablet once a day. She was also recommended to start taking digoxin at night instead of the morning. At visit with ms on 10/16/2023 I increased her carvedilol to [...] She has under (more content not included)... [facility] Office Visiton 03-31-2025 Follow-up visit [id number] Harjit Asencio I 1950 Date Provider Department Center 03/31/2025 RAFAEL PEDERSEN [facility] Family History Problem Relation Age of Onset Coronary artery disease Mother Diabetes Mother Coronary artery disease Father Family Status - Relation Status Age at Mother Father Sister Brother Alive Level of Service:28595 [place] OFFICE/OUTPATIENT ESTABLISHED MOD MDM 30 MIN [facility] 36on 02-12-2025 36 Increased to 6.25mg BID [facility] 36on 02-11-2025 36 Patient called reported that she ran out of her carvedilol, discussed with patient to start on Coreg 6.25 mg bid, I also discussed this plan with her primary property controller , patient will have to monitor her blood pressure at home. Yadiel Haines MD PGY-5 capacity planner [facility] Telephoneon 02-11-2025 Telephone [phone] Harjit Asencio I 1950 Date Provider Department Center 02/11/2025 YADIEL CROW [facility] CARD ID HeartVAS Family History Problem Relation Age of Onset Coronary artery disease Mother Diabetes Mother Coronary artery disease Father Family Status - Relation Status Age at Mother Father Sister Brother Alive [facility] Follow-Upon 02-10-2025 Follow-Up [id number] Harjit Asencio I 1950 F Date Provider Department Center 02/10/2025 MuluRAFAEL PRINGLE CECILE [facility] Family History Problem Relation Age of Onset Coronary artery disease Mother Diabetes Mother Coronary artery disease Father Family Status - Relation Status Age at Mother Father Sister Brother Alive Level of Service:73449 [place] OFFICE/OUTPATIENT ESTABLISHED MOD MDM 30 MIN [facility] 36on 01-25-2025 36 Rafael, would it be ok for her to hold Eliquis for a few days with her recent MitraClip or does she need to continue and maybe reduce the dose? -Maybe we move forward with Watchman for her after you see her on 02/10? [facility] 36 Rafael, would it be ok for her to hold Eliquis for a few days with her recent MitraClip or does she need to continue and maybe reduce the dose? -Maybe we move forward with Watchman for her after you see her on 02/10? [facility] Follow-Upon 01-23-2025 Follow-Up [id number] Harjit Asencio I 1950 Date Provider Department [place] 01/23/2025 MARJ HOWELL CECILE Davies Family History Problem Relation Age of Onset Coronary artery disease Mother Diabetes Mother Coronary artery disease Father Family Status - Relation Status Age at Mother Father Sister Brother Alive Level of Service:05344 [place] OFFICE/OUTPATIENT ESTABLISHED MOD MDM 30 MIN Reason for Visit and Comments: Valve Disorder [3372] Atrial Fibrillation [80] [facility] 30on 01-15-2025 30 The patient is Moderately [...] and maintained or improved Outcome: Progressing Normal [facility] BASIC METABOLIC PANELon 06-0 Anion gap [Moles/Vol] 13 mmol/L Normal 7-20 [facility] Comment on above: Performed By: #### L [id number] ####[facility] ([facility])[address] [place] [address] Calcium [Mass/Vol] 8.3 mg/dL Low 8.6-10.3 [facility] Comment on above: Performed By: #### L [id number] ####[facility] ([facility])[address] [place] [address] Chloride [Moles/Vol] 106 mmol/L Normal 98-107 [facility] Comment on above: Performed By: #### L [id number] ####[facility] ([facility])[address] [place] [address] CO2 [Moles/Vol] 19 mmol/L Low 21-31 [facility] Comment on above: Performed By: #### L [id number] ####[facility] ([facility])[address] [place] [address] Creatinine [Mass/Vol] 0.84 mg/dL Normal 0.60-1.20 [facility] [place] Comment on above: Performed By: #### L [id number] ####[facility] ([facility])[address] [place] [address] GLOMERULAR FILTRATION RATE ML/MIN/1.73 SQ M.PREDICTED 72.0 mL/min/1.73m*2 Normal >60.0 [facility] Comment on above: Result Comment: [facility]???s estimated glomerular filtration rate (eGFR) will no [...] of individuals. Performed By: #### L [id number] ####[facility] ([facility])[address] [place] [address] Glucose [Mass/Vol] 123 mg/dL High 70-100 [facility] Comment on above: Performed By: #### L [id number] ####[facility] ([facility])[address] [place] [address] Potassium [Moles/Vol] 4.7 mmol/L Normal 3.5-5.1 [facility] Comment on above: Performed By: #### L [id number] ####[facility] ([facility])[address] [place] [address] Sodium [Moles/Vol] 133 mmol/L Low 136-145 [facility] Comment on above: Performed By: #### L [id number] ####[facility] ([facility])[address] [place] [address] Urea nitrogen [Mass/Vol] 16 mg/dL Normal 7-25 [facility] Comment on above: Performed By: #### L [id number] ####[facility] ([facility])[address] [place] [address] UREA NITROGEN/CREATININE (MASS RATIO) IN SER/PLAS 19.0 Normal [facility] Comment on above: Performed By: #### L [id number] ####[facility] ([facility])[address] [place] [address] CBCon 01-15-2025 Erythrocyte distribution width (RBC) [Ratio] 13.4 % Normal 11.5-15.0 [facility] Comment on above: Performed By: #### L [id number] #### [facility] ([facility]) [address] [place] [address] ERYTHROCYTE MEAN CORPUSCULAR HEMOGLOBIN CONCENTRATION (G/DL) BY AUTOMATED 30.1 g/dL Low 32.0-35.0 [facility] Comment on above: Performed By: #### L [id number] #### [facility] ([facility]) [address] [place] [address] Hematocrit (Bld) [Volume fraction] 45.2 % High 36.0-45.0 [facility] Comment on above: Performed By: #### L [id number] #### [facility] ([facility]) [address] [place] [address] Hemoglobin (Bld) [Mass/Vol] 13.6 g/dL Normal 12.0-15.0 [facility] Comment on above: Performed By: #### L [id number] #### [facility] ([facility]) [address] [place] [address] MCH (RBC) [Entitic mass] 30.4 pg Normal 27.0-33.0 [facility] Comment on above: Performed By: #### L [id number] #### [facility] ([facility]) [address] [place] [address] MCV (RBC) [Entitic vol] 100.9 fL High 82.0-98.0 [facility] Comment on above: Performed By: #### L [id number] #### [facility] ([facility]) [address] [place] [address] PLATELETS (10*3/UL) IN BLOOD AUTOMATED COUNT 176 10*3/uL Normal 150-400 [facility] Comment on above: Performed By: #### L [id number] #### [facility] ([facility]) [address] [place] [address] RBC (Bld) [#/Vol] 4.48 10*6/uL Normal 3.80-5.00 [facility] Comment on above: Performed By: #### L [id number] #### [facility] ([facility]) [address] [place] [address] WBC (Bld) [#/Vol] 12.19 10*3/uL High 4.00-10.60 [facility] Comment on above: Performed By: #### L [id number] #### [facility] ([facility]) [address] [place] [address] DSon 01-15-2025 DS Admission Admitted 01/14/2025 for [...] use. Cl (more content not included)... Normal [facility] 30on 01-14-2025 30 The patient is Moderately [...] and behaviors that affect risk of falls [place] fall precautions as indicated by assessment Educate [...] maintained or improved Outcome: Progressing Flowsheets (Taken 01/14/2025 2321) Care Plan - Patient's Chronic Conditions and [...] and prevent overall improvement and discharge Normal [facility] 30 The patient is Moderately Unstable - [...] and maintained or improved Outcome: Progressing Normal [facility] BASIC METABOLIC PANELon 06-0 Anion gap [Moles/Vol] 9 mmol/L Normal 7-20 [facility] Comment on above: Performed By: #### L [id number] #### [facility] ([facility]) [address] [place] [place] [address] Calcium [Mass/Vol] 8.5 mg/dL Low 8.6-10.3 [facility] Comment on above: Performed By: #### L [id number] #### [facility] ([facility]) [address] [place] [address] Chloride [Moles/Vol] 107 mmol/L Normal 98-107 [facility] Comment on above: Performed By: #### L [id number] #### [facility] ([facility]) [address] [place] [address] CO2 [Moles/Vol] 26 mmol/L Normal 21-31 [facility] Comment on above: Performed By: #### L [id number] #### [facility] ([facility]) [address] [place] [place] [address] Creatinine [Mass/Vol] 0.80 mg/dL Normal 0.60-1.20 [facility] [place] Comment on above: Performed By: #### L [id number] #### [facility] ([facility]) [address] [place] [address] GLOMERULAR FILTRATION RATE ML/MIN/1.73 SQ M.PREDICTED 76.3 mL/min/1.73m*2 Normal >60.0 [facility] Comment on above: Result Comment: [facility]???s estimated glomerular filtration rate (eGFR) will no [...] individuals. Performed By: #### L [id number] #### [facility] ([facility]) [address] [place] [address] Glucose [Mass/Vol] 97 mg/dL Normal 70-100 [facility] Comment on above: Performed By: #### L [id number] #### [facility] ([facility]) [address] [place] [address] Potassium [Moles/Vol] 3.9 mmol/L Normal 3.5-5.1 [facility] Comment on above: Performed By: #### L [id number] #### [facility] ([facility]) [address] [place] [address] Sodium [Moles/Vol] 138 mmol/L Normal 136-145 [facility] Comment on above: Performed By: #### L [id number] #### [facility] ([facility]) [address] [place] [address] Urea nitrogen [Mass/Vol] 11 mg/dL Normal 7-25 [facility] Comment on above: Performed By: #### L [id number] #### [facility] ([facility]) [address] [place] [address] UREA NITROGEN/CREATININE (MASS RATIO) IN SER/PLAS 13.8 Normal [facility] Comment on above: Performed By: #### L [id number] #### [facility] ([facility]) [address] [place] [address] CBC WITH AUTO DIFFERENTIALon 01-14-2025 Basophils (Bld) [#/Vol] 0.03 10*3/uL Normal 0.00-0.20 [facility] Comment on above: Performed By: #### L [id number] #### [facility] ([facility]) [address] [place] [address] Basophils/100 WBC (Bld) 0.6 % Normal 0.0-1.0 [facility] Comment on above: Performed By: #### L [id number] #### [facility] ([facility]) [address] [place] [address] Eosinophils (Bld) [#/Vol] 0.07 10*3/uL Normal 0.00-0.50 [facility] Comment on above: Performed By: #### L [id number] #### [facility] ([facility]) [address] [place] [address] Eosinophils/100 WBC (Bld) 1.4 % Normal 0.0-6.0 [facility] Comment on above: Performed By: #### L [id number] #### [facility] ([facility]) [address] [place] [address] Erythrocyte distribution width (RBC) [Ratio] 13.4 % Normal 11.5-15.0 [facility] Comment on above: Performed By: #### L [id number] #### [facility] ([facility]) [address] [facility] [address] ERYTHROCYTE MEAN CORPUSCULAR HEMOGLOBIN CONCENTRATION (G/DL) BY AUTOMATED 33.0 g/dL Normal 32.0-35.0 [facility] Comment on above: Performed By: #### L [id number] #### [facility] ([facility]) [address] [place] [address] Hematocrit (Bld) [Volume fraction] 35.8 % Low 36.0-45.0 [facility] Comment on above: Performed By: #### L [id number] #### [facility] ([facility] [address] [place] [address] Hemoglobin (Bld) [Mass/Vol] 11.8 g/dL Low 12.0-15.0 [facility] Comment on above: Performed By: #### L [id number] #### [facility] ([facility]) [address] [place] [address] Immature granulocytes (Bld) [#/Vol] 0.02 10*3/uL Normal 0.00-0.20 [facility] Comment on above: Performed By: #### L [id number] #### [facility] ([facility]) [address] [place] [address] Immature granulocytes/100 WBC (Bld) 0.4 % Normal 0.0-1.0 [facility] Comment on above: Performed By: #### L [id number] #### [facility] ([facility]) [address] [place] [address] Lymphocytes (Bld) [#/Vol] 1.34 10*3/uL Normal 1.20-4.00 [facility] Comment on above: Performed By: #### L [id number] #### [facility] ([facility]) [address] [place] [address] Lymphocytes/100 WBC (Bld) 27.7 % Normal 20.0-45.0 [facility] Comment on above: Performed By: #### L [id number] #### [facility] ([facility]) [address] [place] [address] MCH (RBC) [Entitic mass] 31.1 pg Normal 27.0-33.0 [facility] Comment on above: Performed By: #### L [id number] #### [facility] ([facility]) [address] [place] [address] MCV (RBC) [Entitic vol] 94.2 fL Normal 82.0-98.0 [facility] Comment on above: Performed By: #### L [id number] #### [facility] ([facility]) [address] [place] [address] Monocytes (Bld) [#/Vol] 0.40 10*3/uL Normal 0.10-1.00 [facility] Comment on above: Performed By: #### L [id number] #### [facility] ([facility]) [address] [place] [address] Monocytes/100 WBC (Bld) 8.3 % Normal 5.0-12.0 [facility] Comment on above: Performed By: #### L [id number] #### [facility] ([facility]) [address] [place] [address] Neutrophils (Bld) [#/Vol] 2.98 10*3/uL Normal 1.60-7.60 [facility] Comment on above: Performed By: #### L [id number] #### [facility] ([facility]) [address] [place] [address] Neutrophils/100 WBC (Bld) 61.6 % Normal 40.0-72.0 [facility] Comment on above: Performed By: #### L [id number] #### [facility] ([facility]) [address] [place] [address] NRBC (PER 100 WBCS) BY AUTOMATED COUNT 0.0 % Normal 0 [facility] Comment on above: Performed By: #### L [id number] #### [facility] ([facility]) [address] [place] [address] PLATELETS (10*3/UL) IN BLOOD AUTOMATED COUNT 178 10*3/uL Normal 150-400 [facility] Comment on above: Performed By: #### L [id number] #### [facility] ([facility]) [address] [place] [address] RBC (Bld) [#/Vol] 3.80 10*6/uL Normal 3.80-5.00 [facility] Comment on above: Performed By: #### L [id number] #### [facility] ([facility]) [address] [place] [address] WBC (Bld) [#/Vol] 4.84 10*3/uL Normal 4.00-10.60 [facility] Comment on above: Performed By: #### L [id number] #### [facility] ([facility]) [address] [place] [address] HPon 01-14-2025 HP H&P reviewed. The patient was examined and there are no changes to the H&P. Normal [facility] POCT GLUCOSE METER UNSOLICIT ED RESULTSon 01-14-2025 Glucose [Mass/Vol] 92 mg/dL Normal 70-105 [facility] Comment on above: Order Comment: Waive d Testing in the ED is performed under the ED CLIA certificate #[id number]. Result Comment: [email or web address] [email or web address] Performed By: #### L [id number] #### [facility] ([facility]) [address] [place] [address] PROTIME-INRon 01-14-2025 INR IN PPP BY COAGULATION ASSAY 1.08 Normal 0.90-1.10 [facility] Comment on above: Result Comment: ACCC P [...] 1995;[id number]. Performed By: #### L [id number] #### [facility] ([facility]) [address] [place] [address] PROTHROMBIN TIME (PT) IN PPP BY COAGULATION ASSAY 14.0 Seconds Normal 12.3-14.8 [facility] Comment on above: Performed By: #### L [id number] #### [facility] ([facility]) [address] [place] [address] TYPE AND SCREENon 01-14-2025 AB SCREEN Negative Normal [facility] Comment on above: Performed By: #### L [id number] #### [facility] , ABO group Nom (Bld) O Normal [facility] Comment on above: Performed By: #### L [id number] #### [facility] , RH TYPE IN BLOOD Positive Normal [facility] Comment on above: Performed By: #### L [id number] #### [facility] , Orders Only01-13-2025 Orders Only [id number] Elif,Harjit I 1950 F Date Provider Department Center 01/13/2025 [id number] MILLER [facility] Medical C Family History Problem Relation Age of Onset Coronary artery disease Mother Diabetes Mother Coronary artery disease Father Family Status - Relation Status Age at Mother Father Sister Brother Alive Normal [facility] Orders Onlyon 01-09-2025 Orders Only [id number] Elif,Harjit I 1950 F Date Provider Department Center 01/09/2025 BIANCA MIGUEL Family History Problem Relation Age of Onset Coronary artery disease Mother Diabetes Mother Coronary artery disease Father Family Status - Relation Status Age at Mother Father Sister Brother Alive Normal [facility] Orders Onlyon 01-08-2025 Orders Only [id number] Elif,Harjit I 1950 F Date Provider Department Center 01/08/2025 RADHA CHAVEZ [facility] CARD ID [facility] Family History Problem Relation Age of Onset Coronary artery disease Mother Diabetes Mother Coronary artery disease Father Family Status - Relation Status Age at Mother Father Sister Brother Alive [facility] Documentationon 12-25-2024 Documentation [id number] Harjit Asencio I 1950 F Date Provider Department Center 12/25/2024 Keesha-GABE MARTINEZ [facility] Family History Problem Relation Age of Onset Coronary artery disease Mother Diabetes Mother Coronary artery disease Father Family Status - Relation Status Age at Mother Father Sister Brother Alive [facility] Telephoneon 12-24-2024 Telephone [id number] Harjit Asencio I 1950 Date Provider Department Center 12/24/2024 Ayad5-BIANCA GEORGE [facility] Family History Problem Relation Age of Onset Coronary artery disease Mother Diabetes Mother Coronary artery disease Father Family Status - Relation Status Age at Mother Father Sister Brother Alive [facility] HPon 12-23-2024 [facility] Cardiology [facility] Subjective Harjit Asencio is a [...] insomnia Urethral stricture Urinary frequency 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 The plan was to add Jardiance. There is note of her to being evaluated by CT surgery Dr. Sorto regarding candidacy for cardiac surgery and she was deemed high risk. She was also evaluated at [facility] cardiothoracic surgery. Initial workup for her mitral valve disease was started. Spironolactone was changed to half tablet twice a day instead of 1 tablet once a day. She was also recommended to start taking digoxin at night instead of the morning. At visit with ms on 10/16/2023 I increased her carvedilol to [...] are negativ (more content not included)... Normal [facility] Office Visiton 12-23-2024 Follow-up visit [id number] Harjit Asencio I 1950 F Date Provider Department Center 12/23/2024 RAFAEL PEDERSEN [facility] Family History Problem Relation Age of Onset Coronary artery disease Mother Diabetes Mother Coronary artery disease Father Family Status - Relation Status Age at Mother Father Sister Brother Alive Level of Service:19844 [place] OFFICE/OUTPATIENT ESTABLISHED HIGH MDM 40 MIN Normal [facility] Urinalysis macro (dipstick) panel (U)on 12-17-2024 Bilirubin, UA Negative Negative - 4(70) +++ mg/dL [facility] Blood, UA Positive Negative - 50 Pedro/mcL [facility] Clarity, UA Clear [facility] Color, UA Yellow [facility] Glucose, UA Negative Negative - 1999(110) ++++ mg/dL [facility] Interpretation and review of laboratory results Abnormal [facility] Ketones, UA Negative Negative - 160(16) ++++ mg/dL [facility] Leukocytes, UA Negative Negative - 500+++ Ghislaine/mcL [facility] Nitrite, UA Negative Negative - Positive [facility] pH, UA 6 5 - 9 [facility] Protein, UA Negative Negative - 1999(20) ++++ mg/dL [facility] Spec Grav, UA 1.005 1 - 1.03 [facility] Urobilinogen, UA 0.2 0.2 - 12 mg/dL [facility] ANESon 11-29-2024 ANES - Attestation signed by Gabe Martinez MD at 11/29/2024 11:53 AM By [...] 11/29/24 0900 Procedure: TRANSESOPHAGEAL ECHO (HAROON) Location: [facility] Vascular Lab Clinical information reviewed: Allergies Meds OB Status Physical Exam Airway Mallampati: III Cardiovascular Dental Pulmonary Abdominal Anesthesia Plan ASA 3 other (Conscious sedation) intravenous induction Anesthetic plan and risks discussed with patient. Use of blood products discussed with patient who consented to blood products. Plan discussed with attending and fellow. Additional Equipment Requests Normal [facility] BASIC METABOLIC PANELon 11-12 Anion gap [Moles/Vol] 9 mmol/L Normal 7-20 [facility] Comment on above: Performed By: #### L [id number] #### [facility] ([facility]) [address] [place] [address] Calcium [Mass/Vol] 9.1 mg/dL Normal 8.6-10.3 [facility] Comment on above: Performed By: #### L [id number] #### [facility] ([facility]) [address] [place] [address] Chloride [Moles/Vol] 102 mmol/L Normal 98-107 [facility] Comment on above: Performed By: #### L [id number] #### [facility] ([facility]) [address] [place] [address] CO2 [Moles/Vol] 32 mmol/L High 21-31 [facility] Comment on above: Performed By: #### L [id number] #### [facility] ([facility]) [address] [place] [address] Creatinine [Mass/Vol] 0.85 mg/dL Normal 0.60-1.20 [facility] Comment on above: Performed By: #### L [id number] #### [facility] ([facility]) [address] [place] [address] GLOMERULAR FILTRATION RATE ML/MIN/1.73 SQ M.PREDICTED 71.0 mL/min/1.73m*2 Normal >60.0 [facility] Comment on above: Result Comment: [facility]???s estimated glomerular filtration rate (eGFR) will no [...] individuals. Performed By: #### L [id number] #### [facility] ([facility]) [address] [place] [address] Glucose [Mass/Vol] 96 mg/dL Normal 70-100 [facility] Comment on above: Performed By: #### L [id number] #### [facility] ([facility]) [address] [place] [address] Potassium [Moles/Vol] 4.9 mmol/L Normal 3.5-5.1 [facility] Comment on above: Performed By: #### L [id number] #### [facility] ([facility]) [address] [place] [address] Sodium [Moles/Vol] 138 mmol/L Normal 136-145 [facility] Comment on above: Performed By: #### L [id number] #### [facility] ([facility]) [address] [place] [address] Urea nitrogen [Mass/Vol] 14 mg/dL Normal 7-25 [facility] Comment on above: Performed By: #### L [id number] #### [facility] ([facility]) [address] [place] [address] UREA NITROGEN/CREATININE (MASS RATIO) IN SER/PLAS 16.5 Normal [facility] Comment on above: Performed By: #### L [id number] #### [facility] ([facility]) [address] [place] [address] CBCon 11-29-2024 Erythrocyte distribution width (RBC) [Ratio] 13.3 % Normal 11.5-15.0 [facility] Comment on above: Performed By: #### L [id number] #### [facility] ([facility]) [address] [place] [address] ERYTHROCYTE MEAN CORPUSCULAR HEMOGLOBIN CONCENTRATION (G/DL) BY AUTOMATED 32.1 g/dL Normal 32.0-35.0 [facility] Comment on above: Performed By: #### L [id number] #### [facility] ([facility]) [address] [place] [address] Hematocrit (Bld) [Volume fraction] 41.8 % Normal 36.0-45.0 [facility] Comment on above: Performed By: #### L [id number] #### [facility] ([facility]) [address] [place] [address] Hemoglobin (Bld) [Mass/Vol] 13.4 g/dL Normal 12.0-15.0 [facility] Comment on above: Performed By: #### L [id number] #### [facility] ([facility]) [address] [place] [address] MCH (RBC) [Entitic mass] 30.0 pg Normal 27.0-33.0 [facility] Comment on above: Performed By: #### L [id number] #### [facility] ([facility]) [address] [place] [address] MCV (RBC) [Entitic vol] 93.7 fL Normal 82.0-98.0 [facility] Comment on above: Performed By: #### L [id number] #### [facility] ([facility]) [address] [place] [address] PLATELETS (10*3/UL) IN BLOOD AUTOMATED COUNT 264 10*3/uL Normal 150-400 [facility] Comment on above: Performed By: #### L [id number] #### [facility] ([facility]) [address] [place] [address] RBC (Bld) [#/Vol] 4.46 10*6/uL Normal 3.80-5.00 [facility] Comment on above: Performed By: #### L [id number] #### [facility] ([facility]) [address] [place] [address] WBC (Bld) [#/Vol] 9.08 10*3/uL Normal 4.00-10.60 [facility] Comment on above: Performed By: #### L [id number] #### [facility] ([facility]) [address] [place] [address] [facility] 11-29-2024 - Attestation signed by Gabe Martinez MD at 11/29/2024 11:52 AM By [...] log. Intraprocedural f (more content not included)... [facility] NURSNOTEon 11-29-2024 NURSNOTE Bedside swallow stud y completed and passed. [facility] NURSNOTE RN educated pt on d/ [...] off of unit with all of belongings. [facility] Telephoneon 11-22-2024 Telephone [id number] Harjit Asencio I 1950 F Date Provider Department Center 11/22/2024 YAEL BRADFORD [facility] VASC LAB ID [facility] Family History Problem Relation Age of Onset Coronary artery disease Mother Diabetes Mother Coronary artery disease Father Family Status - Relation Status Age at Mother Father [facility] Bacteria identified Cx Nom ( U)on 11-21-2024 Appearance (U) Adequate [facility] Internal identifier for Provider [id number] [facility] Specimen source Nom (Unsp spec) URINE, CLEAN CATCH [facility] STATUS FINAL [facility] Performing Organization Information Site ID: [id number] Name: Ahaali [facility] Address: [address] [place] [address], [address] [place] [id number] Director: Ab Vincent MD [facility] Healthcare [facility] Healthcare CULTURE, URINE, ROUTINEon CULTURE, URINE, ROUTINE SEE NOTE Normal [facility] Comment on above: Result Comment: CULTURE, URINE, ROUTINE Micro Number: [id number] Test Status: Final Specimen Source: Urine, clean catch Specimen Quality: Adequate Result: No Growth Performed By: #### 3 95 #### [facility] [address], [address] [place] [address] Floor Worker [place]: Ab Vincent MD Urine cultureon 11-21-2024 Bacteria identified Cx Nom (U) SEE NOTE [facility] Comment on above: No Growth Urinalysis macro (dipstick) panel (U)on 11-18-2024 Bilirubin, UA Negative Negative - 4(70) +++ mg/dL [facility] Blood, UA Positive Negative - 50 Pedro/mcL [facility] Clarity, UA Clear [facility] Color, UA Yellow [facility] Glucose, UA Negative Negative - 1999(110) ++++ mg/dL [facility] Interpretation and review of laboratory results Abnormal [facility] Ketones, UA Negative Negative - 160(16) ++++ mg/dL [facility] Leukocytes, UA Trace Negative - 500+++ Ghislaine/mcL [facility] Nitrite, UA Negative Negative - Positive [facility] pH, UA 6.5 5 - 9 [facility] Protein, UA Negative Negative - 1999(20) ++++ mg/dL [facility] Spec Grav, UA 1.01 1 - 1.03 [facility] Urobilinogen, UA 0.2 0.2 - 12 mg/dL [facility] Office Visiton 10-22-2024 Follow-up visit [id number] Harjit Asencio I 1950 F Date Provider Department Center 10/22/2024 PATTY DIANE CECILE [facility] Family History Problem Relation Age of Onset Coronary artery disease Mother Diabetes Mother Coronary artery disease Father Family Status - Relation Status Age at Mother Father Level of Service:59716 [place] OFFICE/OUTPATIENT ESTABLISHED LOW MDM 20 MIN Normal [facility] Urinalysis macro (dipstick) panel (U)on 08-12-2024 Bilirubin, UA Negative Negative - 4(70) +++ mg/dL [facility] Blood, UA Positive Negative - 50 Pedro/mcL [facility] Clarity, UA Clear [facility] Color, UA Yellow [facility] Glucose, UA Negative Negative - 1999(110) ++++ mg/dL [facility] Interpretation and review of laboratory results Abnormal [facility] Ketones, UA Negative Negative - 160(16) ++++ mg/dL [facility] Leukocytes, UA Negative Negative - 500+++ Ghislaine/mcL [facility] Nitrite, UA Negative Negative - Positive [facility] pH, UA 6 5 - 9 [facility] Protein, UA Negative Negative - 2000(20) ++++ mg/dL [facility] Spec Grav, UA 1.005 1 - 1.03 [facility] Urobilinogen, UA 0.2 0.2 - 12 mg/dL [facility] COMPREHENSIVE METABOLIC PANE Cuauhtemoc 07-04-2024 Albumin [Mass/Vol] 4.2 g/dL Normal 3.6-5.1 [facility] Comment on above: Order Comment: FASTI NG:NO FASTING: NO Performed By: #### 1 0231 #### [facility] [place] [address] Floor Worker [place]: Ab Vincent MD Albumin/Globulin [Mass ratio] 1.8 {ratio} Normal 1.0-2.5 [facility] Comment on above: Order Comment: FASTI NG:NO FASTING: NO Performed By: #### 1 0231 #### [facility] [place] [address] Floor Worker [place]: Ab Vincent MD ALP [Catalytic activity/Vol] 75 U/L Normal 37-153 [facility] Comment on above: Order Comment: FASTI NG:NO FASTING: NO Performed By: #### 1 0231 #### [facility] [place] [address] Floor Worker [place]: Ab Vincent MD ALT [Catalytic activity/Vol] 27 U/L Normal 6-29 [facility] Comment on above: Order Comment: FASTI NG:NO FASTING: NO Performed By: #### 1 0231 #### [facility] [place] [address] Floor Worker [place]: Ab Vincent MD AST [Catalytic activity/Vol] 27 U/L Normal 10-35 [facility] Comment on above: Order Comment: FASTI NG:NO FASTING: NO Performed By: #### 1 0231 #### [facility] [place] [address] Floor Worker [place]: Ab Vincent MD Bilirubin [Mass/Vol] 0.6 mg/dL Normal 0.2-1.2 [facility] Comment on above: Order Comment: FASTI NG:NO FASTING: NO Performed By: #### 1 0231 #### [facility] [place] [address] Floor Worker [place]: Ab Vincent MD BUN/CREATININE RATIO SEE NOTE: Normal 6-22 [facility] Comment on above: Order Comment: FASTI NG:NO FASTING: NO Result Comment: Not Reported: BUN and Creatinine are within reference range. Performed By: #### 1 0231 #### [facility] [place] [address] Floor Worker [place]: Ab Vincent MD Calcium [Mass/Vol] 9.2 mg/dL Normal 8.6-10.4 [facility] Comment on above: Order Comment: FASTI NG:NO FASTING: NO Performed By: #### 1 0231 #### [facility] [place] [address] Floor Worker [place]: Ab Vincent MD Chloride [Moles/Vol] 104 mmol/L Normal 98-110 [facility] Comment on above: Order Comment: FASTI NG:NO FASTING: NO Performed By: #### 1 0231 #### [facility] [place] [address] Floor Worker [place]: Ab Vincent MD CO2 [Moles/Vol] 27 mmol/L Normal 20-32 [facility] Comment on above: Order Comment: FASTI NG:NO FASTING: NO Performed By: #### 1 0231 #### [facility] [place] [address] Floor Worker [place]: Ab Vincent MD Creatinine [Mass/Vol] 0.87 mg/dL Normal 0.60-1.[address] [facility] Comment on above: Order Comment: FASTI NG:NO FASTING: NO Performed By: #### 1 0231 #### [facility] [place] [address] Floor Worker [place]: Ab Vincent MD GFR/1.73 sq M.predicted among non-blacks MDRD (S/P/Bld) [Vol rate/Area] 69 mL/min/{1.73_m2} Normal > OR = 60 [facility] Comment on above: Order Comment: FASTI NG:NO FASTING: NO Performed By: #### 1 0231 #### [facility] [place] [address] Floor Worker [place]: bA Vincent MD Globulin (S) [Mass/Vol] 2.3 g/dL Normal 1.9-3.7 [facility] Comment on above: Order Comment: FASTI NG:NO FASTING: NO Performed By: #### 1 0231 #### [facility] [place] [address] Floor Worker [place]: Ab Vincent MD Glucose [Mass/Vol] 94 mg/dL Normal 65-139 [facility] Comment on above: Order Comment: FASTI NG:NO FASTING: NO Result Comment: Non-fasting reference interval Performed By: #### 1 0231 #### [facility] [place] [address] Floor Worker [place]: Ab Vincent MD Potassium [Moles/Vol] 4.6 mmol/L Normal 3.5-5.3 [facility] Comment on above: Order Comment: FASTI NG:NO FASTING: NO Performed By: #### 1 0231 #### [facility] [place] [address] Floor Worker [place]: Ab Vincent MD Protein [Mass/Vol] 6.5 g/dL Normal 6.1-8.1 [facility] Comment on above: Order Comment: FASTI NG:NO FASTING: NO Performed By: #### 1 0231 #### [facility] [place] [address] Floor Worker [place]: Ab Vincent MD Sodium [Moles/Vol] 139 mmol/L Normal 135-146 [facility] Comment on above: Order Comment: FASTI NG:NO FASTING: NO Performed By: #### 1 0231 #### [facility] [address], [address] [place] [address] Floor Worker [place]: Ab Vincent MD Urea nitrogen [Mass/Vol] 12 mg/dL Normal 7-25 [facility] Comment on above: Order Comment: FASTI NG:NO FASTING: NO Performed By: #### 1 0231 #### [facility] [address], [address] [place] [address] Floor Worker [place]: Ab Vincent MD CULTURE, URINE, ROUTINEon CULTURE, URINE, ROUTINE SEE NOTE Normal [facility] Comment on above: Order Comment: FASTI NG:UNKNOWN FASTING: UNKNOWN Result Comment: CULTURE, URINE, ROUTINE Micro Number: [id number] Test Status: Final Specimen Source: Urine Specimen Quality: Adequate Result: No Growth Performed By: #### 3 95 #### [facility] [address], [address] [place] [address] Floor Worker [place]: Ab Vincent MD 37on 07-02-2024 37 *You can take famotidine (Pepcid) 10mg daily as needed for heartburn/acid reflux. If you are still having symptoms, you can take tums or rolaids as needed. -Let cardiology know if chest pain persists Normal [facility] Office Visiton 07-02-2024 Follow-up visit [id number] Harjit Asencio I 1950 F Date Provider Department Center 07/02/2024 166-MARJ [facility] CARD [facility] Family History Problem Relation Age of Onset Coronary artery disease Mother Diabetes Mother Coronary artery disease Father Family Status - Relation Status Age at Mother Father Level of Service:89250 [place] OFFICE/OUTPATIENT ESTABLISHED MOD MDM 30 MIN Reason for Visit and Comments: Atrial Fibrillation [80] Palpitations [910269] Congestive Heart Failure [127] Valve Disorder [3372] Normal [facility] Urinalysis macro (dipstick) panel (U)on 07-01-2024 Bilirubin, UA Negative Negative - 4(70) +++ mg/dL [facility] Blood, UA Negative Negative - 50 Pedro/mcL [facility] Clarity, UA Clear [facility] Color, UA Light Yellow [facility] Glucose, UA Negative Negative - 1999(110) ++++ mg/dL [facility] Interpretation and review of laboratory results Normal [facility] Ketones, UA Negative Negative - 160(16) ++++ mg/dL [facility] Leukocytes, UA Negative Negative - 500+++ Ghislaine/mcL [facility] Nitrite, UA Negative Negative - Positive [facility] pH, UA 6 5 - 9 [facility] Protein, UA Negative Negative - 1999(20) ++++ mg/dL [facility] Spec Grav, UA 1.01 1 - 1.03 [facility] Urobilinogen, UA 0.2 0.2 - 12 mg/dL [facility] CNOVon 06-27-2024 CNOV Normal [facility] HPon 06-10-2024 HP ID Electrophysiology Consult Note ID Cardiology - [facility] Reason for visit: Afib+ CMP [...] MR and subsequently had a visit with [facility] where evaluation was being done for surgical correction of mitral valve but was noted to have high risk and hence deferred. She also had an evaluation for the same at ID CT surgery and thereafter had seen in [...] on file Intimate Partner Violence: Unknown (10/05/2023) ID Safety & Environment Fear of Current or [...] clear, no (more content not included)... Normal [facility] Orders Onlyon 06-05-2024 Orders Only [id number] Harjit Asencio I 1950 F Date Provider Department Center 06/05/2024 PTATY DIANE [facility] CARD [facility] Family History Problem Relation Age of Onset Coronary artery disease Mother Diabetes Mother Coronary artery disease Father Family Status - Relation Status Age at Mother Father Normal [facility] BMPon 06-03-2024 Anion gap [Moles/Vol] 9 mmol/L Normal 6-16 Fis [facility] Comment on above: Performed By: #### 2 [id number] #### [facility] [address] [place] [address] Calcium [Mass/Vol] 9.1 mg/dL Normal 8.9-11.1 [facility] Comment on above: Performed By: #### 2 [id number] #### [facility] [address] [place] [address] Chloride [Moles/Vol] 103 mmol/L Normal 101-111 [facility] Comment on above: Performed By: #### 2 [id number] #### [facility] [address] [place] [address] CO2 [Moles/Vol] 29 mmol/L Normal 21-31 [facility] Comment on above: Performed By: #### 2 [id number] #### [facility] [address] [place] [address] Creatinine [Mass/Vol] 0.8 mg/dL Normal 0.5-1.3 [facility] Comment on above: Performed By: #### 2 [id number] #### [facility] [address] [place] [address] Glucose [Mass/Vol] 89 mg/dL Normal 55-199 [facility] Comment on above: Performed By: #### 2 868353 #### [facility] [address] [place] [address] Potassium [Moles/Vol] 4.3 mmol/L Normal 3.5-5.3 [facility] Comment on above: Performed By: #### 2 [id number] #### [facility] [address] [place] [address] Sodium [Moles/Vol] 137 mmol/L Normal 135-145 [facility] Comment on above: Performed By: #### 2 811027 #### [facility] [address] [place] [address] Urea nitrogen [Mass/Vol] 12 mg/dL Normal 5-21 [facility] Comment on above: Performed By: #### 2 305361 #### [facility] [address] [place] [address] Urea nitrogen/Creatinine [Mass ratio] 15 No Units Normal 10-20 [facility] Comment on above: Performed By: #### 2 133126 #### [facility] [address] [place] [address] CBC w/Indiceson 06-03-2024 Erythrocyte distribution width (RBC) [Ratio] 14.0 % Normal 10.9-14.2 [facility] Comment on above: Performed By: #### 2 [id number] #### [facility] [address] [place] [address] Hematocrit (Bld) [Volume fraction] 40.6 % Normal 34.0-46.0 [facility] Comment on above: Performed By: #### 2 603835 #### [facility] [address] [place] [address] Hemoglobin (Bld) [Mass/Vol] 13.7 g/dL Normal 12.0-16.0 [facility] Comment on above: Performed By: #### 2 573612 #### [facility] [address] [place] [address] MCH (RBC) [Entitic mass] 31.0 pg Normal 27.0-34.0 [facility] Comment on above: Performed By: #### 2 [id number] #### [facility] [address] [place] [address] MCHC (RBC) [Mass/Vol] 33.6 g/dL Normal 31.4-36.0 [facility] Comment on above: Performed By: #### 2 352691 #### [facility] [address] [place] [address] MCV (RBC) [Entitic vol] 92.2 fL Normal 80.0-100.0 [facility] Comment on above: Performed By: #### 2 986629 #### [facility] [address] [place] [address] Platelet mean volume (Bld) [Entitic vol] 8.3 fL Normal 6.4-10.8 [facility] Comment on above: Performed By: #### 2 801861 #### [facility] [address] [place] [address] Platelets (Bld) [#/Vol] 198.0 E9/L Normal 150.0-500.0 [facility] Comment on above: Performed By: #### 2 504897 #### [facility] [address] [place] [address] RBC (Bld) [#/Vol] 4.4 E12/L Normal 4.3-5.9 [facility] Comment on above: Performed By: #### 2 879807 #### [facility] [address] [place] [address] RBC size Nom (Bld) NORMAL Invalid Interpretation Code [facility] Comment on above: Performed By: #### 2 [id number] #### [facility] [address] [place] [address] WBC corrected for nucl RBC Auto (Bld) [#/Vol] 7.0 E9/L Normal 4.0-11.0 [facility] Comment on above: Performed By: #### 2 008614 #### [facility] [address] [place] [address] CHEMISTRYOrdered By: SYSTEM SYSTEM on 06-03-2024 Anion [...] Remisol Heme Orders Onlyon 06-03-2024 Orders Only [id number] Harjit Asencio I 1950 F Date Provider Department Center 06/03/2024 YAEL BRADFORD [facility] VASC LAB [facility] Family History Problem Relation Age of Onset Coronary artery disease Mother Diabetes Mother Coronary artery disease Father Family Status - Relation Status Age at Mother Father Normal [facility] eGFRon 06-03-2024 eGFR 76 mL/min/1.73 m2 Normal >=59 [facility] Comment on above: Performed By: #### 1 [id number] #### [facility] [address] [place] [address] Office Visiton 05-27-2024 Follow-up visit [id number] Harjit Asencio I 1950 F Date Provider Department [place] 05/27/2024 RAFAEL PEDERSEN CECILE [facility] Family History Problem Relation Age of Onset Coronary artery disease Mother Diabetes Mother Coronary artery disease Father Family Status - Relation Status Age at Mother Father Level of Service:21915 [place] OFFICE/OUTPATIENT ESTABLISHED MOD MDM 30 MIN Normal [facility] CNOVon 05-07-2024 CNOV Normal [facility] CNPTOUTREACHon 05-07-2024 CNPTOUTREACH Normal [facility] URINALYSIS, REFLEX MICROSCOP ICon 05-07-2024 Bilirubin Ql (U) Negative Negative [facility] Clarity (Unsp spec) Clear Clear [facility] Color (U) Yellow Yellow [facility] Glucose Test strip (U) [Mass/Vol] Negative Negative [facility] Hemoglobin Ql (U) Negative Negative [facility] Interpretation and review of laboratory results Normal [facility] Ketones Ql (U) Negative Negative [facility] Leukocyte esterase Test strip Ql (U) Negative Negative [facility] Nitrite Ql (U) Negative Negative [facility] pH (U) 6.0 [pH] NINF - 8.5 [facility] Protein (U) [Mass/Vol] Negative Negative [facility] Specific gravity (U) [Rel density] 1.007 1.005 - 1.030 [facility] Urobilinogen Ql (U) 0.2 EU/dL 0.2-1.0 EU/dL [facility] Bilirubin Ql (U) Negative Normal Negative [facility] Comment on above: Order Comment: Speci men Type: URINE SPECIMENOrdering Facility: [facility] Address: [address] [place] [address] Performed By: #### L [id number] ####[facility] [id number] [place] [address] [place] Clarity (Unsp spec) Clear Normal [facility] Comment on above: Order Comment: Speci men Type: URINE SPECIMENOrdering Facility: [facility] Address: [address] [place] [address] Performed By: #### L [id number] ####[facility] [id number] [place] [address] [place] Color (U) Yellow Normal Yellow [facility] Comment on above: Order Comment: Speci men Type: URINE SPECIMENOrdering Facility: [facility] Address: [address] [place], [place] [address] Performed By: #### L [id number] ####[facility] [id number] [place] [address] [place] Glucose Test strip (U) [Mass/Vol] Negative Normal Negative [facility] Comment on above: Order Comment: Speci men Type: URINE SPECIMENOrdering Facility: [facility] Address: [address] [place] [address] Performed By: #### L [id number] ####[facility] [id number] [place] [address] [place] Hemoglobin Ql (U) Negative Normal Negative [facility] Comment on above: Order Comment: Speci men Type: URINE SPECIMENOrdering Facility: [facility] Address: [address] [place] [address] Performed By: #### L [id number] ####[facility] [id number] [place] [address] [place] Ketones Ql (U) Negative Normal Negative [facility] Comment on above: Order Comment: Speci men Type: URINE SPECIMENOrdering Facility: [facility] Address: [address] [place] [address] Performed By: #### L [id number] ####[facility] [id number] [place] [address] [place] Leukocyte esterase Test strip Ql (U) Negative Normal Negative [facility] Comment on above: Order Comment: Speci men Type: URINE SPECIMENOrdering Facility: [facility] Address: [address] [place], [place] [address] Performed By: #### L [id number] ####[facility] [id number] [place] [address] [place] Nitrite Ql (U) Negative Normal Negative [facility] Comment on above: Order Comment: Speci men Type: URINE SPECIMENOrdering Facility: [facility] Address: [address] [place] [address] Performed By: #### L [id number] ####[facility] [id number] [place] [address] [place] pH (U) 6.0 [pH] Normal <8.5 [facility] Comment on above: Order Comment: Speci men Type: URINE SPECIMENOrdering Facility: [facility] Address: [address] [place] [address] Performed By: #### L [id number] ####[facility] [id number] [place] [address] [place] Protein (U) [Mass/Vol] Negative Normal Negative [facility] Comment on above: Order Comment: Speci men Type: URINE SPECIMENOrdering Facility: [facility] Address: [address] [place] [address] Performed By: #### L [id number] ####[facility] [id number] [place] [address] [place] Specific gravity (U) [Rel density] 1.007 Normal 1.005-1.030 [facility] Comment on above: Order Comment: Speci men Type: URINE SPECIMENOrdering Facility: [facility] Address: [address] [place] [address] Performed By: #### L [id number] ####[facility] [id number] [place] [address] [place] Urobilinogen Ql (U) 0.2 EU/dL Normal 0.2-1.0 EU/dL [facility] Comment on above: Order Comment: Speci men Type: URINE SPECIMENOrdering Facility: [facility] Address: [address] [place] [address] Performed By: #### L [id number] ####[facility]CLIA [id number] [place] [address] [place] 36on 05-06-2024 36 Pt informed and she will restart eliquis day after injections Normal [facility] C Urineon 11-24-2023 Bacteria identified Cx Nom (U) Microbiology PROCEDURE: Urine Culture [R1] SOURCE: U CleanCatch BODY SITE: COLLECTED DATE/TIME: 11/22/2023 16:36 EDT RECEIVED DATE/TIME: 11/22/2023 17:31 EDT START DATE/TIME: 11/22/2023 17:31 EDT FREE TEXT SOURCE: Edel Zhou PA-C, PA-C, Edel Garcia FINAL REPORTS Final Report [] Verified Date/Time: 11/24/2023 09:32 EDT 1,000 cfu/ml Mixed skin contaminants Performing Locations R1: This test was performed at: [facility], [address] [place] [address], [id number] , , [facility] Comment on above: Performed By: #### 2 [id number], [id number], [id number], [id number], [id number], [id number] #### [facility] [address] [place] [address] BB Draw & Holdon 11-23-2023 BB D&H Sample drawn for Blood Ba Normal [facility] Comment on above: Performed By: #### 1 [id number] #### [facility] [address] [place] [address] Abdomen/Pelvis w/ Contras ton 11-23-2023 CT [...] Oral contrast amount in ml's: 0 Normal [facility] ED Note-Physicianon 11-23-19 ED Note-Physician Basic Information [...] imaging. No significant abnormalities. Patient is very [id number] with her symptoms and now states to [...] day(s), # 100 mL, Refills(s) 0, Pharmacy: [facility], 165, cm, 11/22/23 16:28:00 EDT, Height/Length [...] days 11/25/[address] [place] [address]- Additional Instructions: Patient Education Constipation, Adult, [id number] Attestation I performed a substantive part of [...] EC T (more content not included)... Normal [facility] Comment on above: Result Comment: Elec tronically Signed By: Edel Zhou PA-C\.br\Date and Time Signed: 11/22/23 20:45 EDT\.br\Electronically Co-Signed By: Jayson Calloway DO\.br\Date and Time Co-Signed: 11/23/23 07:15 EDT CBC w/ Auto Diffon 4 Basophils/100 WBC (Bld) 1.1 % Normal 0.0-2.0 [facility] Comment on above: Performed By: #### 1 [id number] #### [facility] Laboratory [address] [place] [address] Basophils/Leukocytes Auto (Bld) [Pure # fraction] 0.1 E9/L Normal 0.0-0.2 [facility] Comment on above: Performed By: #### 1 [id number] #### [facility] [address] [place] [address] Eosinophils (Bld) [#/Vol] 0.0 E9/L Normal 0.0-0.5 [facility] Comment on above: Performed By: #### 1 [id number] #### [facility] [address] [place] [address] Eosinophils/100 WBC (Bld) 0.2 % Normal 0.0-8.0 [facility] Comment on above: Performed By: #### 1 [id number] #### [facility] [address] [place] [address] Erythrocyte distribution width (RBC) [Ratio] 14.7 % High 10.9-14.2 [facility] Comment on above: Performed By: #### 1 [id number] #### [facility] [address] [place] [address] Hematocrit (Bld) [Volume fraction] 42.0 % Normal 34.0-46.0 [facility] Comment on above: Performed By: #### 1 [id number] #### [facility] [address] [place] [address] Hemoglobin (Bld) [Mass/Vol] 13.9 g/dL Normal 12.0-16.0 [facility] Comment on above: Performed By: #### 1 [id number] #### [facility] [address] [place] [address] Lymphocytes (Bld) [#/Vol] 2.1 E9/L Normal 1.0-4.0 [facility] Comment on above: Performed By: #### 1 [id number] #### [facility] [address] [place] [address] Lymphocytes/100 WBC (Bld) 25.6 % Normal 14.0-50.0 [facility] Comment on above: Performed By: #### 1 [id number] #### [facility] [address] [place] [address] MCH (RBC) [Entitic mass] 30.3 pg Normal 27.0-34.0 [facility] Comment on above: Performed By: #### 1 [id number] #### [facility] [address] [place] [address] MCHC (RBC) [Mass/Vol] 33.1 g/dL Normal 31.4-36.0 [facility] Comment on above: Performed By: #### 1 [id number] #### [facility] [address] [place] [address] MCV (RBC) [Entitic vol] 91.5 fL Normal 80.0-100.0 [facility] Comment on above: Performed By: #### 1 [id number] #### [facility] [address] [place] [address] Monocytes (Bld) [#/Vol] 0.5 E9/L Normal 0.2-1.0 [facility] Comment on above: Performed By: #### 1 [id number] #### [facility] [address] [place] [address] Neutrophils (Bld) [#/Vol] 5.5 E9/L Normal 2.0-7.5 [facility] Comment on above: Performed By: #### 1 [id number] #### [facility] [address] [place] [address] Neutrophils/100 WBC (Bld) 66.8 % Normal 36.0-75.0 [facility] Comment on above: Performed By: #### 1 [id number] #### [facility] [address] [place] [address] Platelet mean volume (Bld) [Entitic vol] 8.3 fL Normal 6.4-10.8 [facility] Comment on above: Performed By: #### 1 [id number] #### [facility] [address] [place] [address] Platelets (Bld) [#/Vol] 250.0 E9/L Normal 150.0-500.0 [facility] Comment on above: Performed By: #### 1 [id number] #### [facility] [address] [place] [address] RBC (Bld) [#/Vol] 4.6 E12/L Normal 4.3-5.9 [facility] Comment on above: Performed By: #### 1 [id number] #### [facility] [address] [place] [address] WBC corrected for nucl RBC Auto (Bld) [#/Vol] 8.3 E9/L Normal 4.0-11.0 [facility] Comment on above: Performed By: #### 1 [id number] #### [facility] [address] [place] [address] CHEMISTRYOrdered By: Biscotti SYSTEM on 11-22-2023 Albumin [Mass/Vol] 4.6 g/dL [...] Sensitivity Troponin I Instructions For Use, [employer], March 2018) Urea nitrogen [Mass/Vol] 20 mg/dL Normal 5 - 21 mg/dL Remisol Chem Urea nitrogen/Creatinine [Mass ratio] 20 mg/mg Normal 10 - 20 Remisol Chem CMPon 11-22-2023 Albumin [Mass/Vol] 4.6 g/dL Normal 3.3-5.0 [facility] Comment on above: Performed By: #### 1 [id number] #### [facility] [address] [place] [address] Albumin/Globulin (S) [Mass conc ratio] 1.8 Normal 1.1-2.2 [facility] Comment on above: Performed By: #### 1 [id number] #### [facility] [address] [place] [address] ALP [Catalytic activity/Vol] 90 Int._Unit/L Normal 21-98 [facility] Comment on above: Performed By: #### 1 [id number] #### [facility] [address] [place] [address] ALT No additional P-5'-P [Catalytic activity/Vol] 41 Int._Unit/L Normal 6-46 [facility] Comment on above: Performed By: #### 1 [id number] #### [facility] [address] [place] [address] Anion gap [Moles/Vol] 13 mmol/L Normal 6-16 [facility] Comment on above: Performed By: #### 1 [id number] #### [facility] [address] [place] [address] AST [Catalytic activity/Vol] 30 Int._Unit/L Normal 5-43 [facility] Comment on above: Performed By: #### 1 [id number] #### [facility] [address] [place] [address] Bilirubin [Mass/Vol] 1.0 mg/dL Normal 0.0-1.1 [facility] Comment on above: Performed By: #### 1 [id number] #### [facility] [address] [place] [address] Calcium [Mass/Vol] 10.0 mg/dL Normal 8.9-11.1 [facility] Comment on above: Performed By: #### 1 [id number] #### [facility] [address] [place] [address] Chloride [Moles/Vol] 99 mmol/L Low 101-111 [facility] Comment on above: Performed By: #### 1 [id number] #### [facility] [address] [place] [address] CO2 [Moles/Vol] 27 mmol/L Normal 21-31 [facility] Comment on above: Performed By: #### 1 [id number] #### [facility] [address] [place] [address] Creatinine [Mass/Vol] 1.0 mg/dL Normal 0.5-1.3 [facility] Comment on above: Performed By: #### 1 [id number] #### [facility] [address] [place] [address] Globulin (S) [Mass/Vol] 2.6 g/dL Normal 1.4-4.0 [facility] Comment on above: Performed By: #### 1 [id number] #### [facility] [address] [place] [address] Glucose [Mass/Vol] 114 mg/dL Normal 55-199 [facility] Comment on above: Performed By: #### 1 [id number] #### [facility] [address] [place] [address] Potassium [Moles/Vol] 4.2 mmol/L Normal 3.5-5.3 [facility] Comment on above: Performed By: #### 1 [id number] #### [facility] [address] [place] [address] Protein [Mass/Vol] 7.2 g/dL Normal 6.0-7.8 [facility] Comment on above: Performed By: #### 1 [id number] #### [facility] [address] [place] [address] Sodium [Moles/Vol] 135 mmol/L Normal 135-145 [facility] Comment on above: Performed By: #### 1 [id number] #### [facility] [address] [place] [address] Urea nitrogen [Mass/Vol] 20 mg/dL Normal 5-21 [facility] Comment on above: Performed By: #### 1 [id number] #### [facility] [address] [place] [address] Urea nitrogen/Creatinine [Mass ratio] 20 No Units Normal 10-20 [facility] Comment on above: Performed By: #### 1 [id number] #### [facility] [address] [place] [address] COAGULATIONOrdered By: Elena Dinero on 11-22-2023 aPTT Coag (PPP) [Time] 41.3 s High 25.1 - 36.5 second(s) [facility] Comment on above: Interpretive Data: P saeed 15 days - 4 weeks 1 - [...] the same coagulation reagent and instrumentation as [facility]. Currently there are no coagulation studies available worldwide for children to 14 days, and no normal ranges. Heparin therapeutic range (represented by Anti-Factor Xa activity of 0.2 - 0.4 U/mL) corresponds to PTT of 56.6 - 109.0 sec. INR Coag (PPP) [Relative time] 1.37 {INR} Invalid Interpretation Code [facility] Comment on above: Interpretive Data: I NR results are specifically intended to assess patients stabilized on long-term Anticoagulation therapy suggested INR s Less Intensive Anticoagulation 2.0 3.0 Conventional Range 3.0 4.5 PT Coag (PPP) [Time] 15.4 s High 9.4 - 1 2.5 second(s) [facility] Comment on above: Interpretive [...] the same coagulation reagent and instrumentation as [facility]. Currently there are no coagulation studies available worldwide for children to 14 days, and no normal ranges. Consent for Treatmenton 11-12 Consent for Treatment [id number]#1 .00TIFF Normal [facility] Discharge Instructionson Discharge Instructions [id number]# 1.00TIFF Normal [facility] ED Clinical Summaryon 2023 ED Clinical Summary [address] [address] ED Clinical Summary Person Information Name: HARJIT ASENCIO I [place] Age: 73 Years : 1950 Sex: Female Language: Sierra Leonean PCP: Snehal MCMAHON, Hannah De Leon Marital Status: MRN: Visit Id: Visit Reason: Back pain; Dysuria; [...] 11/22/2023 20:57:39 11/22/2023 20:57:39 11/22/2023 20:57:39 ADDRESS: [address] [place] [address] [address] [facility] [id number] PHYS DOC NOTES: MEDICAL INFORMATION: Prescriptions Given: New Medications Elite Form #37, [address] [place] [id number], [phone] lactulose (lactulose 10 g/15 mL Oral Syrup) [...] 0. PATIENT EDUCATION INFORMATION: Instructions: Constipation, Adult, Ldxj-ad-Ujas Follow up: With: Address: When: Snehal MCMAHON, Hannah [place] [place] [address] In 3 days 11/25/2023 DIAGNOSIS: 1:Constipation Normal [facility] ED Patient Education Noteon 11-22-2023 ED Patient [...] in fat and sugar, such as: ? Grenadian fries. ? Hamburgers. ? Cookies. ? Candy. ? Soda. ? Drink enough fluid to keep your pee (urine) pale yellow. General instructions ? Exercise regularly or as told by your doctor. Try to do 150 minutes of exercise each week. ? Go to the restroom when you feel like you need to poop. Do not hold it in. ? Take gblz-yir-duzhhvk and prescription medicines only as told by [...] your pee (urine) pale yellow. ? Take hmib-tif-vfymqpu and prescription medicines only as told by your doctor. These include any fiber supplements. This information is not intended to replace advice given to you by your health care provider. Make sure you discuss any questions you have with your health care provider. Document Revised: 06/17/2020 Document Reviewed: 06/17/2020 Elsevier Patient Education ? 2022 [employer]. Normal [facility] ED Patient Summaryon 024 ED Patient Summary [address] [address] Patient Discharge Instructions Person Information Name: HARJIT ASENCIO I Age: 73 Years Arrival Date: 11/22/2023 16:16:41 Discharge Diagnosis: 1:Constipation Primary Care Physician: Hannah Brian MD Provider Information Primary Provider: Jayson Calloway DO Advanced Service Attendant Cafeteria:None The exam and treatment you received in the Emergency Department were for an urgent problem and are not intended as complete care. It is important that you follow up with a doctor, nurse practitioner, or physician?s phys assistant for ongoing care. If your symptoms [...] Address: When: Hannah Brian [place] [address] In 3 days 11/25/2023 In the event that this physician does not participate in your insurance network, please consult with your insurance company to find a nearby participating provider. Patient Education Materials: Constipation, Adult, Guax-yx-Ivlf A MESSAGE TO ALL PATIENTS REGARDING OPIOIDS PRESCRIPTION OPIOIDS: WHAT YOU NEED TO KNOW Prescription opioids can be used to help relieve gshqfuvx-lo-gcmkxq pain and are often prescribed following a [...] be struggling with addiction, tell your health palliative care nurse and ask for guidance or call [facility]S Over[employer] Helpline at [phone]-SBVS. o Source: [place] Department of Health and Human S (more content not included)... Normal [facility] HEMATOLOGYOrdered By: SYSTEM SYSTEM on 11-22-2023 Basophils/100 [...] 11-22-2023 Magnesium [Mass/Vol] 2.0 mg/dL Normal 1.3-2.4 [facility] Comment on above: Performed By: #### 1 [id number] #### [facility] [address] [place] [address] PT & PTTon 11-22-2023 aPTT Coag (PPP) [Time] 41.3 second(s) High 25.1-36.5 [facility] Comment on above: Result Comment: [...] the same coagulation reagent and instrumentation as [facility]. Currently there are no coagulation studies available worldwide for children to 14 days, and no normal ranges. Heparin therapeutic range (represented by Anti-Factor Xa activity of 0.2 - 0.4 U/mL) corresponds to PTT of 56.6 - 109.0 sec. Performed By: #### 1 [id number] #### [facility] [address] [place] [address] INR Coag (PPP) [Relative time] 1.37 {INR} Invalid Interpretation Code [facility] Comment on above: Result Comment: INR results are specifically intended to assess patients stabilized on long-term Anticoagulation therapy suggested INR?s ?Less Intensive Anticoagulation? 2.0 ? 3.0 Conventional Range 3.0 ? 4.5 Performed By: #### 1 [id number] #### [facility] [address] [place] [address] PT Coag (PPP) [Time] 15.4 second(s) High 9.4-12.5 [facility] Comment on above: Result Comment: [...] the same coagulation reagent and instrumentation as [facility]. Currently there are no coagulation studies available worldwide for children to 14 days, and no normal ranges. Performed By: #### 1 [id number] #### [facility] [address] [place] [address] RAD - Preliminary Cat Scan R eporton 11-22-2023 RAD - Preliminary Cat Scan Report [id number]# 1.00TIFF Normal [facility] Troponin 0 Hr.on 11-22-2023 Troponin 12.30 pg/mL Normal 10.10-27.10 [facility] Comment on above: Result Comment: The 95% CI (Confidence Interval) PPV (Positive Predictive Value) for myocardial infarction in females is 38 pg/mL, in males 51 pg/mL. The results should be used in conjunction with clinical conditions of myocardial infarction. (Access High Sensitivity Troponin I Instructions For Use, [employer], March 2018) Performed By: #### 1 [id number] #### [facility] [address] [place] [address] UA with Cult Rflxon 11-22-19 24 Bilirubin Ql (U) Negative Normal Negative [facility] Comment on above: Performed By: #### 2 253180, [id number], 8749833, 8717648, 5214863, 2562544 #### [facility] [address] [place] [address] Clarity (U) Clear Normal Clear [facility] Comment on above: Performed By: #### 2 021391, 85966040, 0268662, 9129499, 8137715, 2007258 #### [facility] [address] [place] [address] Color (U) Colorless Abnormal Yellow [facility] Comment on above: Result Comment: Micr oscopic readings are only performed on those samples that meet specific criteria set forth by [facility]. Performed By: #### 2 799743, 60949953, 8540364, 3067241, 9044418, 3301482 #### [facility] [address] [place] [address] Epithelial cells.squamous Auto (Urine sed) [#/Area] 0-2 Normal 0-2 [facility] Comment on above: Performed By: #### 2 667660, 36612183, 4257917, 8414650, 7195133, 5025504 #### [facility] [address] [place] [address] Glucose Ql (U) Negative Normal Negative [facility] Comment on above: Performed By: #### 2 552611, 82887139, 8224851, 6697202, 6972895, 9425481 #### [facility] [address] [place] [address] Hemoglobin Auto test strip (U) [Mass/Vol] Negative Normal Negative [facility] Comment on above: Performed By: #### 2 107814, 63098373, 8567235, 8682199, 4006841, 9321582 #### [facility] [address] [place] [address] Ketones Auto test strip Ql (U) Negative Normal Negative [facility] Comment on above: Performed By: #### 2 414289, 22730594, 5756916, 0825970, 6653451, 4378651 #### [facility] [address] [place] [address] Leukocyte esterase Auto test strip Ql (U) 75 Ghislaine/uL Abnormal Negative [facility] Comment on above: Performed By: #### 2 745637, 01602402, 4200684, 3390041, 5280738, 2039714 #### [facility] [address] [place] [address] Mucus Auto Ql (U) Negative Normal Negative [facility] Comment on above: Performed By: #### 2 134698, 83870660, 3381473, 7224196, 4167355, 6613047 #### [facility] [address] [place] [address] Nitrite Auto test strip Ql (U) Negative Normal Negative [facility] Comment on above: Performed By: #### 2 547414, 11216121, 5951631, 5031532, 8935624, 8608009 #### [facility] [address] [place] [address] pH (U) 7.0 [pH] Invalid Interpretation Code 5.0-9.0 [facility] Comment on above: Performed By: #### 2 192883, 39533888, 5751686, 4940936, 3274311, 6476336 #### [facility] [address] [place] [address] Protein Ql (U) Negative Normal Negative [facility] Comment on above: Performed By: #### 2 254992, 25386314, 3124093, 3546135, 2283118, 2911739 #### [facility] [address] [place] [address] RBC Ql (U) 0-3 Normal 0-3 [facility] Comment on above: Performed By: #### 2 673796, 29401455, 6241406, 1964483, 6220365, 4176193 #### [facility] [address] [place] [address] Specific gravity (U) [Rel density] 1.004 Invalid Interpretation Code 1.005-1.030 [facility] Comment on above: Performed By: #### 2 421334, 19362290, 2991793, 7396792, 4032284, 2622664 #### [facility] [address] [place] [address] Urobilinogen (U) [Mass/Vol] Negative Normal Negative [facility] Comment on above: Performed By: #### 2 977303, 64432221, 6359973, 2293017, 8062950, 5588198 #### [facility] [address] [place] [address] WBC Auto (Urine sed) [#/Area] 0-5 Normal 0-5 [facility] Comment on above: Performed By: #### 2 068212, 13663886, 0096018, 0912458, 6088250, 6813410 #### [facility] [address] [place] [address] Type of Urine collection method Clean Catch Normal [facility] Comment on above: Performed By: #### 2 123534, 77685977, 2943503, 8686403, 8752381, 8772401 #### [facility] [address] [place] [address] URINALYSISOrdered By: SYSTEM SYSTEM on 11-22-2023 Bilirubin [...] that meet specific criteria set forth by [facility]. Epithelial cells.squamous Auto (Urine sed) [#/Area] [...] Desc Clean Catch (11/22/23 4:36 PM) Normal [facility] UA Auto SS XR Abdomen 1 [...] mGy = na DAP = na Normal [facility] eGFRon 11-22-2023 eGFR 58 mL/min/1.73 m2 Low >=59 [facility] Comment on above: Order Comment: Order added by Discern Expert. Performed By: #### 1 [id number] #### [facility] [address] [place] [address] Consent for Treatmenton Consent for Treatment [id number] .00TIFF Normal [facility] US Abdomen, Limitedon 2023 US Abdomen, Limited [...] to thin body habitus. Ordering Provider: Hannah Brina FINAL REPORT Dictated: 11/13/2023 3:31 pm Johan Nava MD Signed (Electronic Signature): 11/13/2023 3:31 pm Signed by: Johan Nava MD Transcribed by: ARAVIND Technologist: IZABEL Normal [facility] Physician Orderon 11-09-2023 Physician Order [id number] .00TIFF Normal [facility] CNOVon 10-16-2023 CNOV Normal [facility] CNPNon 10-16-2023 CNPN Normal [facility] UA DIP, URINE (POC)on 2023 BILIRUBIN UA (POCT) Negative Negative [facility] CLARITY UA (POCT) Clear [facility] COLOR UA (POCT) Yellow [facility] GLUCOSE UA (POCT) Negative Negative mg/dL [facility] Hemoglobin Ql (U) Trace-lysed Abnormal Negative [facility] KETONE UA (POCT) Negative Negative mg/dL [facility] LEUKOCYTES UA (POCT) Large [facility]normal [facility] NITRITE UA (POCT) Negative Negative [facility] PH UA (POCT) 6.0 4.5 - 8.0 [facility] Protein Ql (U) Negative Negative mg/dL [facility] SPECIFIC GRAVITY UA (POCT) 1.010 1.005 - 1.030 [facility] UROBILINOGEN UA (POCT) 0.2 E.U./dL Normal E.U./dL [facility] ED Note-Physicianon 10-06-19 ED Note-Physician Basic [...] Constipation, unspecified) (more content not included)... Normal [facility] Comment on above: Result Comment: Elec tronically Signed By: Nica Knox PA-C\.br\Date and Time Signed: 10/05/23 21:57 EST\.br\Electronically Co-Signed By: Koby Masterson DO\.br\Date and Time Co-Signed: 10/06/23 00:54 EST Consent for Treatmenton 09-15 Consent for Treatment [id number] .00TIFF [facility] Discharge Instructionson Discharge Instructions [id number]# 1.00TIFF [facility] ED Clinical Summaryon 2023 ED Clinical Summary [address] [address] ED Clinical Summary Person Information Name: HARJIT ASENCIO I Patricia/[facility] Age: 73 Years : 1950 Sex: Female Language: Sierra Leonean PCP: Peggy Nazario MD Marital Status: Visit [...] 10/05/2023 21:56:34 10/05/2023 21:56:34 10/05/2023 21:56:34 ADDRESS: [address] [place] [address] [address] [facility] [id number] PHYS DOC NOTES: MEDICAL INFORMATION: Prescriptions Given: Medications to Continue Taking That Have Changed Elite Form #37, [address] [place], [place] [id number], [phone] START: carvedilol (carvedilol 3.125 mg Tab) 1 [...] 0. PATIENT EDUCATION INFORMATION: Instructions: Constipation, Adult, Fnru-mv-Mzbk; Gastroesophageal Reflux Disease, Adult, Cyxs-nu-Jrlc; Abdominal Pain, Adult, Ejly-cy-Gnkm Follow up: With: Address: When: Johan HENRIQUEZ [address] [place], [place] [id number] [phone] alphacityguides (1) In 3 days 10/08/2023 With: Address: When: Peggy Nazario [address] [place] [phone] alphacityguides (1) In 3 days DIAGNOSIS: 1:Constipation Normal [facility] ED Patient Education Noteon 10-05-2023 [...] in fat and sugar, such as: ? Grenadian fries. ? Hamburgers. ? Cookies. ? Candy. ? Soda. ? Drink enough fluid to keep your pee (urine) pale yellow. General instructions ? Exercise regularly or as told by your doctor. Try to do 150 minutes of exercise each week. ? Go to the restroom when you feel like you need to poop. Do not hold it in. ? Take vtlb-bhp-gwgwkpp and prescription medicines only as told by [...] your pee (urine) pale yellow. ? Take dnrw-yoe-ocphncn and prescription medicines only as told by your doctor. These include any fiber supplements. This information is not intended to replace advice given to you by your health care provider. Make sure you discuss any questions you have with your health care provider. Document Revised: 06/17/2020 Document Reviewed: 06/17/2020 [employer] Patient Education ? 2022 [employer] Gastroesophageal Reflux Disease, Adult Gastroesophageal reflux [...] ? Hors (more content not included)... Normal [facility] ED Patient Summaryon 024 ED Patient Summary [place] [id number] Patient Discharge Instructions Person Information Name: HARJIT ASENCIO I Age: 73 Years Arrival Date: 10/05/2023 17:54:10 Discharge Diagnosis: 1:Constipation Primary Care Physician: Peggy Nazario MD Provider Information Primary Provider: Koby Masterson DO Advanced Service Attendant Cafeteria:None The exam and treatment you received in the Emergency Department were for an urgent problem and are not intended as complete care. It is important that you follow up with a doctor, nurse practitioner, or physician?s phys assistant for ongoing care. If your symptoms [...] Follow-up Instructions: With: Address: When: Johan HENRIQUEZ [address] [place] [address] [phone] Business (1) In 3 days 10/08/2023 With: Address: When: Peggy Nazario [address] [place], [place] [phone] alphacityguides (1) In 3 days In the event that this physician does not participate in your insurance network, please consult with your insurance company to find a nearby participating provider. Patient Education Materials: Constipation, Adult, Ndmo-jf-Ppjn; Gastroesophageal Reflux Disease, Adult, Cadd-dm-Yxvb; Abdominal Pain, Adult, Zyry-tw-Kwnf A MESSAGE TO ALL PATIENTS REGARDING OPIOIDS PRESCRIPTION OPIOIDS: WHAT YOU NEED TO KNOW Prescription opioids can be used to help relieve bqhvdicq-az-mxtjmp pain and are often prescribed following a [...] ? If (more content not included)... Normal [facility] CNPNon 10-02-2023 CNPN Normal [facility] Echocardiographyon Echocardiography [id number] 0 [id number]#1 .00TIFF Normal [facility] Outside Cardiovascularon Outside Cardiovascular [id number]#1 .00TIFF Normal [facility] Outside Cardiovascular [id number]#1 .00TIFF Normal [facility] Outside Cardiovascular [id number]#1 .00TIFF Normal [facility] Outside Operativeon 09-27-19 24 Outside Operative [id number] 0 [id number]#1 .00TIFF Normal [facility] Outside Operative [id number] 0 [id number]#1 .00TIFF Normal [facility] Outside Radiologyon 09-27-19 24 Outside Radiology [id number] 0 [id number]#1 .00TIFF Normal [facility] Outside Radiology [id number] 0 [id number]#1 .00TIFF Normal [facility] CBC panel Auto (Bld)on 09-26 Erythrocyte distribution width (RBC) [Ratio] 13.2 % Normal 11.5-15.0 [facility] Comment on above: Order Comment: Speci men Type: BLOOD SPECIMENOrdering Facility: [facility] Address: [address] [place] [address] Performed By: #### 5 8410-2 ####[facility] LABCLIA [id number] [place] [address] [place] Hematocrit (Bld) [Volume fraction] 38.1 % Normal 36.0-46.0 [facility] Comment on above: Order Comment: Speci men Type: BLOOD SPECIMENOrdering Facility: [facility] Address: [address] [place] [address] Performed By: #### 5 8410-2 ####[facility] LABIA [id number] [place] [address] [place] Hemoglobin (Bld) [Mass/Vol] 12.2 g/dL Normal 11.5-15.5 [facility] Comment on above: Order Comment: Speci men Type: BLOOD SPECIMENOrdering Facility: [facility] Address: [address] [place] [address] Performed By: #### 5 8410-2 ####[facility] LABIA [id number] [place] [address] [place] MCH (RBC) [Entitic mass] 29.5 pg Normal 26.0-34.0 [facility] Comment on above: Order Comment: Speci men Type: BLOOD SPECIMENOrdering Facility: [facility] Address: [address] [place] [address] Performed By: #### 5 8410-2 ####[facility] LABIA [id number] [place] [address] [place] MCHC (RBC) [Mass/Vol] 32.0 g/dL Normal 30.5-36.0 [facility] Comment on above: Order Comment: Speci men Type: BLOOD SPECIMENOrdering Facility: [facility] Address: [address] [place] [address] Performed By: #### 5 8410-2 ####[facility] LABIA [id number] [place] [address] [place] MCV (RBC) [Entitic vol] 92.0 fL Normal 80.0-100.0 [facility] Comment on above: Order Comment: Speci men Type: BLOOD SPECIMENOrdering Facility: [facility] Address: [address] [place] [address] Performed By: #### 5 8410-2 ####[facility] LABCLIA [id number] [place] [address] [place] Nucleated RBC (Bld) [#/Vol] 10*3/uL Normal <0.01 [facility] Comment on above: Order Comment: Speci men Type: BLOOD SPECIMENOrdering Facility: [facility] Address: [address] [place] [address] Performed By: #### 5 8410-2 ####[facility] LABCLIA [id number] [place] [address] [place] Platelet mean volume (Bld) [Entitic vol] 10.5 fL Normal 9.0-12.7 [facility] Comment on above: Order Comment: Speci men Type: BLOOD SPECIMENOrdering Facility: [facility] Address: [address] [place] [address] Performed By: #### 5 8410-2 ####[facility] LABCLIA [id number] [place] [address] [place] Platelets (Bld) [#/Vol] 195 10*3/uL Normal 150-400 [facility] Comment on above: Order Comment: Speci men Type: BLOOD SPECIMENOrdering Facility: [facility] Address: [address] [place] [address] Performed By: #### 5 8410-2 ####[facility] LABCLIA [id number] [place] [address] [place] RBC (Bld) [#/Vol] 4.14 10*6/uL Normal 3.90-5.20 [facility] Comment on above: Order Comment: Speci men Type: BLOOD SPECIMENOrdering Facility: [facility] Address: [address] [place] [address] Performed By: #### 5 8410-2 ####[facility] LABCLIA [id number] [place] [address] [place] WBC (Bld) [#/Vol] 6.03 10*3/uL Normal 3.70-11.00 [facility] Comment on above: Order Comment: Speci men Type: BLOOD SPECIMENOrdering Facility: [facility] Address: [address] [place] [address] Performed By: #### 5 8410-2 ####[facility] [id number] [place] [address] [place] [facility] CBC PNL BLD AUTOon 09-26 [facility] NRBC # BLD AUTO <0.01 NINF [facility] PLATELET # BLD AUTO 195 [facility] PMV BLD AUTO 10.5 fL 9.0 - 12.7 fL [facility] WBC # BLD AUTO 6.03 [facility] Erythrocyte distribution width (RBC) [Ratio] 13.2 % 11.5 - 15.0 % [facility] Hematocrit (Bld) [Volume fraction] 38.1 % 36.0 - 46.0 % [facility] Hemoglobin (Bld) [Mass/Vol] 12.2 g/dL 11.5 - 15.5 g/dL [facility] MCH (RBC) [Entitic mass] 29.5 pg 26.0 - 34.0 pg [facility] MCHC (RBC) [Mass/Vol] 32.0 g/dL 30.5 - 36.0 g/dL [facility] MCV (RBC) [Entitic vol] 92.0 fL 80.0 - 100.0 fL [facility] RBC (Bld) [#/Vol] 4.14 10*6/uL 3.90 - 5.2 0 m/uL [facility] Specimen Type: BLOOD SPECIMEN [facility] Address: [address] [place] [address] Original Ordering Provider: ALEA GUZMAN [facility] CNOVon 09-26-2023 CNOV Normal [facility] CNPTOUTREACHon 09-26-2023 CNPTOUTREACH Normal [facility] Comprehensive metabolic 2000 panelon 09-26-2023 Albumin [Mass/Vol] 4.2 g/dL Normal 3.9-4.9 [facility] Comment on above: Order Comment: Speci men Type: BLOOD SPECIMENOrdering Facility: [facility] Address: [address] [place] [address] Performed By: #### 3 3762-6, ####[facility] LABCLIA [id number] [place] [address] [place] ALP [Catalytic activity/Vol] 57 U/L Normal 34-123 [facility] Comment on above: Order Comment: Speci men Type: BLOOD SPECIMENOrdering Facility: [facility] Address: [address] [place] [address] Performed By: #### 3 3762-6, ####[facility] LABCLIA [id number] [place] [address] [place] ALT [Catalytic activity/Vol] 36 U/L Normal 7-38 [facility] Comment on above: Order Comment: Speci men Type: BLOOD SPECIMENOrdering Facility: [facility] Address: [address] [place] [address] Performed By: #### 3 3762-6, ####[facility] LABCLIA [id number] [place] [address] [place] Anion gap [Moles/Vol] 10 mmol/L Normal 9-18 [facility] Comment on above: Order Comment: Speci men Type: BLOOD SPECIMENOrdering Facility: [facility] Address: [address] [place] [address] Performed By: #### 3 3762-6, ####[facility] LABCLIA [id number] [place] [address] [place] AST [Catalytic activity/Vol] 29 U/L Normal 13-35 [facility] Comment on above: Order Comment: Speci men Type: BLOOD SPECIMENOrdering Facility: [facility] Address: [address] [place], [place] [address] Performed By: #### 3 3762-6, 58799-7 ####[facility] LABCLIA [id number] [place] [address] [place] Bilirubin [Mass/Vol] 0.6 mg/dL Normal 0.2-1.3 [facility] Comment on above: Order Comment: Speci men Type: BLOOD SPECIMENOrdering Facility: [facility] Address: [address] [place] [address] Performed By: #### 3 3762-6, 04913-0 ####[facility] LABCLIA [id number] [place] [address] [place] Calcium [Mass/Vol] 9.6 mg/dL Normal 8.5-10.2 [facility] Comment on above: Order Comment: Speci men Type: BLOOD SPECIMENOrdering Facility: [facility] Address: [address] [place] [address] Performed By: #### 3 3762-6, ####[facility] LABCLIA [id number] [place] [address] [place] Chloride [Moles/Vol] 100 mmol/L Normal 97-105 [facility] Comment on above: Order Comment: Speci men Type: BLOOD SPECIMENOrdering Facility: [facility] Address: [address] [place] [address] Performed By: #### 3 3762-6, ####[facility] LABCLIA [id number] [place] [id number] [place] CO2 [Moles/Vol] 29 mmol/L Normal 22-30 [facility] Comment on above: Order Comment: Speci men Type: BLOOD SPECIMENOrdering Facility: [facility] Address: [address] [place], [place] [address] Performed By: #### 3 3762-6, 95686-9 ####[facility] LABIA [id number] [place] [id number] [place] Creatinine [Mass/Vol] 0.82 mg/dL Normal 0.58-0.96 [facility] Comment on above: Order Comment: Nichole becerra Type: BLOOD SPECIMENOrdering Facility: [facility] Address: [address] [place] [address] Performed By: #### 3 3762-6, 35698-2 ####[facility] LABIA [id number] [place] [address] [place] Creatinine and Glomerular filtration rate.predicted panel (S/P/Bld) 75 mL/min/1.73m??? Normal >=60 [facility] Comment on above: Order Comment: [facility] Type: BLOOD SPECIMENOrdering Facility: [facility] Address: [address] [place] [address] Result Comment: Shelley mated Glomerular Filtration Rate [...] actual GFR. Performed By: #### 3 3762-6, 07714-9 ####[facility] LABIA [id number] [place] [address] [place] Glucose [Mass/Vol] 129 mg/dL High 74-99 [facility] Comment on above: Order Comment: Nichole mariam Type: BLOOD SPECIMENOrdering Facility: [facility] Address: [address] [place] [address] Result Comment: The [place] [employer] Association (ADA) provides guidance for cutoff [...] Standards of Medical Care in Diabetes 2016, [place] [employer]. Diabetes Care. 2016.39(Suppl 1). Performed By: #### 3 3762-6, 64061-8 ####[facility] LABCLIA [id number] [place] [address] [place] Potassium [Moles/Vol] 4.3 mmol/L Normal 3.7-5.1 [facility] Comment on above: Order Comment: Césari men Type: BLOOD SPECIMENOrdering Facility: [facility] Address: [address] [place] [address] Performed By: #### 3 3762-6, 00458-9 ####[facility] LABCLIA [id number] [place] [address] [place] Protein [Mass/Vol] 6.4 g/dL Normal 6.3-8.0 [facility] Comment on above: Order Comment: Césari mariam Type: BLOOD SPECIMENOrdering Facility: [facility] Address: [address] [place] [address] Performed By: #### 3 3762-6, 21158-4 ####[facility] LABCLIA [id number] [place] [address] [place] Sodium [Moles/Vol] 139 mmol/L Normal 136-144 [facility] Comment on above: Order Comment: Speci men Type: BLOOD SPECIMENOrdering Facility: [facility] Address: [address] [place] [address] Performed By: #### 3 3762-6, 39121-2 ####[facility] LABCLIA [id number] [address] [address] [place] Urea nitrogen [Mass/Vol] 15 mg/dL Normal 7-21 [facility] Comment on above: Order Comment: Speci men Type: BLOOD SPECIMENOrdering Facility: [facility] Address: [address] [place] [address] Performed By: #### 3 3762-6, 34423-5 ####[facility] LABCLIA [id number] [place] [address] [place] [id number] 09-26-2023 ECG01 Normal [facility] NT-proBNP SerPl-mCncon 09-26 Natriuretic peptide.B prohormone N-Terminal [Mass/Vol] 2047 pg/mL High <450 [facility] Comment on above: Order Comment: Speci men Type: BLOOD SPECIMENOrdering Facility: [facility] Address: [address] [place] [address] Performed By: #### 3 3762-6, 36184-3 ####[facility] LABCLIA [id number] [place] [address] [place] URINALYSIS, REFLEX MICROSCOP ICon 09-26-2023 Bacteria LM.HPF (Urine sed) [#/Area] Few Abnormal None Seen /HPF [facility] Bilirubin Ql (U) Negative Negative [facility] Clarity (Unsp spec) Cloudy Abnormal Clear [facility] Color (U) Yellow Yellow [facility] Epithelial cells LM.HPF (Urine sed) [#/Area] Moderate [facility] Epithelial cells LM.HPF (Urine sed) [#/Area] Few Abnormal None Seen /HPF [facility] Glucose Test strip (U) [Mass/Vol] Negative Trace, Negative [facility] Hemoglobin Ql (U) 1+ Abnormal Negative, Trace [facility] Ketones Ql (U) Negative Negative, Trace [facility] Leukocyte esterase Test strip Ql (U) 500 Ghislaine/uL Abnormal Negative, 25 Ghislaine/uL [facility] Nitrite Ql (U) Negative Negative [facility] pH (U) 6.0 [pH] 5.0 - 8.0 [facility] Protein (U) [Mass/Vol] Negative Trace, Negative [facility] RBC LM.HPF (Urine sed) [#/Area] 3-5 /HPF Abnormal 0-3 /HPF [facility] Specific gravity (U) [Rel density] 1.013 1.005 - 1.030 [facility] Urobilinogen Ql (U) Normal Normal [facility] WBC LM.HPF (Urine sed) [#/Area] /[HPF] Abnormal 0-5 /HPF [facility] Bacteria LM.HPF (Urine sed) [#/Area] Few Abnormal None Seen [facility] Comment on above: Order Comment: Speci men Type: URINE SPECIMENOrdering Facility: [facility] Address: [address] [place] [address] Performed By: #### L [id number] ####[facility] LABCLIA [id number] [place] [address] [place] Bilirubin Ql (U) Negative Normal Negative [facility] Comment on above: Order Comment: Speci men Type: URINE SPECIMENOrdering Facility: [facility] Address: [address] [place] [address] Performed By: #### L [id number] ####[facility] LABCLIA [id number] [place] [address] [place] Clarity (Unsp spec) Cloudy Abnormal Clear [facility] Comment on above: Order Comment: Speci men Type: URINE SPECIMENOrdering Facility: [facility] Address: [address] [place] [address] Performed By: #### L [id number] ####[facility] LABCLIA [id number] [place] [address] [place] Color (U) Yellow Normal Yellow [facility] Comment on above: Order Comment: Speci men Type: URINE SPECIMENOrdering Facility: [facility] Address: [address] [place] [address] Performed By: #### L [id number] ####[facility] LABCLIA [id number] [place] [address] [place] Epithelial cells LM.HPF (Urine sed) [#/Area] Moderate Normal [facility] Comment on above: Order Comment: Speci men Type: URINE SPECIMENOrdering Facility: [facility] Address: [address] [place] [address] Result Comment: Few Performed By: #### L [id number] ####[facility] LABCLIA [id number] [place] [address] [place] Glucose Test strip (U) [Mass/Vol] Negative Normal Trace, Negative [facility] Comment on above: Order Comment: Speci men Type: URINE SPECIMENOrdering Facility: [facility] Address: [address] [place] [address] Performed By: #### L [id number] ####[facility] LABCLIA [id number] [place] [address] [place] Hemoglobin Ql (U) 1+ Abnormal Negative, Trace [facility] Comment on above: Order Comment: Speci men Type: URINE SPECIMENOrdering Facility: [facility] Address: [address] [place] [address] Performed By: #### L [id number] ####[facility] LABCLIA [id number] [place] [address] [place] Ketones Ql (U) Negative Normal Negative, Trace [facility] Comment on above: Order Comment: Speci men Type: URINE SPECIMENOrdering Facility: [facility] Address: [address] [place] [address] Performed By: #### L [id number] ####[facility] LABCLIA [id number] [place] [address] [place] Leukocyte esterase Test strip Ql (U) 500 Ghislaine/uL Abnormal Negative, 25 Ghislaine/uL [facility] Comment on above: Order Comment: Speci men Type: URINE SPECIMENOrdering Facility: [facility] Address: [address] [place] [address] Performed By: #### L [id number] ####[facility] LABCLIA [id number] [id number] [address] [place] Nitrite Ql (U) Negative Normal Negative [facility] Comment on above: Order Comment: Speci men Type: URINE SPECIMENOrdering Facility: [facility] Address: [address] [place] [address] Performed By: #### L [id number] ####[facility] LABIA [id number] [place] [address] [place] pH (U) 6.0 [pH] Normal 5.0-8.0 [facility] Comment on above: Order Comment: Speci men Type: URINE SPECIMENOrdering Facility: [facility] Address: [address] [place] [address] Performed By: #### L [id number] ####[facility] [id number] [place] [address] [place] Protein (U) [Mass/Vol] Negative Normal Trace, Negative [facility] Comment on above: Order Comment: Speci men Type: URINE SPECIMENOrdering Facility: [facility] Address: [address] [place] [address] Performed By: #### L [id number] ####[facility] LABIA [id number] [place] [address] [place] RBC LM.HPF (Urine sed) [#/Area] 3-5 /HPF Abnormal 0-3 /HPF [facility] Comment on above: Order Comment: Speci men Type: URINE SPECIMENOrdering Facility: [facility] Address: [address] [place] [address] Performed By: #### L [id number] ####[facility] LABIA [id number] [place] [address] [place] Specific gravity (U) [Rel density] 1.013 Normal 1.005-1.030 [facility] Comment on above: Order Comment: Speci men Type: URINE SPECIMENOrdering Facility: [facility] Address: [address] [place] [address] Performed By: #### L [id number] ####[facility] LABCLIA [id number] [place] [address] [place] Urobilinogen Ql (U) Normal Normal Normal [facility] Comment on above: Order Comment: Speci men Type: URINE SPECIMENOrdering Facility: [facility] Address: [address] [place] [address] Performed By: #### L [id number] ####[facility] LABIA [id number] [place] [address] [place] WBC LM.HPF (Urine sed) [#/Area] /[HPF] Abnormal 0-5 /HPF [facility] Comment on above: Order Comment: Speci men Type: URINE SPECIMENOrdering Facility: [facility] Address: [address] [place] [address] Performed By: #### L [id number] ####[facility] LABIA [id number] [place] [address] [place] CNPNon 09-21-2023 CNPN Normal [facility] BMPon 09-17-2023 Anion gap [Moles/Vol] 9 mmol/L Normal 6-16 [facility] Comment on above: Performed By: #### 2 [id number], [id number], 7398514, 7511651, 0343508, 1677322 #### [facility] [address] [place] [address] BUN/Creat Ratio 24 No Units High 10-20 [facility] Comment on above: Performed By: #### 2 452783, [id number], 3633069, 4319146, 6180590, 1526259 #### [facility] [address] [place] [address] Calcium [Mass/Vol] 9.1 mg/dL Normal 8.9-11.1 [facility] Comment on above: Performed By: #### 2 091235, 14641015, 4320079, 0454316, 8898134, 1882595 #### [facility] [address] [place] [address] Chloride [Moles/Vol] 105 mmol/L Normal 101-111 [facility] Comment on above: Performed By: #### 2 637543, 43379365, 4383740, 3529967, 6800018, 7763353 #### [facility] [facility] [address] [place] [address] CO2 [Moles/Vol] 28 mmol/L Normal 21-31 [facility] Comment on above: Performed By: #### 2 857299, 02882344, 6917460, 2023005, 1480025, 6037697 #### [facility] [address] [place] [address] Creatinine [Mass/Vol] 0.7 mg/dL Normal 0.5-1.3 [facility] Comment on above: Performed By: #### 2 435274, 94287154, 1301289, 9459533, 0821490, 4608750 #### [facility] [address] [place] [address] Glucose [Mass/Vol] 83 mg/dL Normal 55-199 [facility] Comment on above: Performed By: #### 2 821947, 69258417, 4990352, 9622291, 0809240, 1251384 #### [facility] [address] [place] [address] Potassium [Moles/Vol] 4.0 mmol/L Normal 3.5-5.3 [facility] Comment on above: Performed By: #### 2 742798, 61279127, 3624769, 5183792, 2390374, 3933241 #### [facility] [address] [place] [address] Sodium [Moles/Vol] 138 mmol/L Normal 135-145 [facility] Comment on above: Performed By: #### 2 250831, 45437588, 9446053, 2373620, 1526969, 7267240 #### [facility] [address] [place] [address] Urea nitrogen [Mass/Vol] 17 mg/dL Normal 5-21 [facility] Comment on above: Performed By: #### 2 576195, 44319866, 6271968, 4485624, 5762333, 2202191 #### [facility] [address] [place] [address] CBC w/ Auto Diffon 4 Basophil Absolute 0.1 E9/L Normal 0.0-0.2 [facility] Comment on above: Performed By: #### 2 674570, 44377779, 6907791, 3880121, 4262273, 7574333 #### [facility] [address] [place] [address] Basophils/100 WBC (Bld) 0.9 % Normal 0.0-2.0 [facility] Comment on above: Performed By: #### 2 258525, 89918968, 4729169, 5444691, 5937618, 1660234 #### [facility] [address] [place] [address] Eos Absolute 0.0 E9/L Normal 0.0-0.5 [facility] Comment on above: Performed By: #### 2 026667, 57317223, 1841211, 1243558, 8159050, 1421865 #### [facility] [address] [place] [address] Eosinophils/100 WBC (Bld) 0.7 % Normal 0.0-8.0 [facility] Comment on above: Performed By: #### 2 358020, 32769196, 4637762, 8509399, 8100894, 7609402 #### [facility] [address] [place] [address] Erythrocyte distribution width (RBC) [Ratio] 14.1 % Normal 10.9-14.2 [facility] Comment on above: Performed By: #### 2 746766, 70216580, 6697346, 6559195, 9473271, 7270809 #### [facility] [address] [place] [address] Hematocrit (Bld) [Volume fraction] 36.0 % Normal 34.0-46.0 [facility] Comment on above: Performed By: #### 2 848868, 84329245, 2066443, 6896262, 5076709, 8294324 #### [facility] [address] [place] [address] Hemoglobin (Bld) [Mass/Vol] 12.2 g/dL Normal 12.0-16.0 [facility] Comment on above: Performed By: #### 2 084151, 40115778, 0411088, 5256770, 2578819, 3215781 #### [facility] [address] [place] [address] Lymph Absolute 2.1 E9/L Normal 1.0-4.0 [facility] Comment on above: Performed By: #### 2 220068, 15658894, 1824931, 3758919, 0098330, 1227996 #### [facility] [address] [place], [place] [address] Lymphocytes/100 WBC (Bld) 31.6 % Normal 14.0-50.0 [facility] Comment on above: Performed By: #### 2 461311, 53084582, 8965271, 4899587, 7563438, 1396005 #### [facility] [address] [place], [place] [address] MCH (RBC) [Entitic mass] 30.0 pg Normal 27.0-34.0 [facility] Comment on above: Performed By: #### 2 092650, 86691594, 3808763, 6664249, 5817128, 8565870 #### [facility] [address] [place] [address] MCHC (RBC) [Mass/Vol] 34.1 g/dL Normal 31.4-36.0 [facility] Comment on above: Performed By: #### 2 990596, 26863188, 7723156, 6401052, 5171471, 5123674 #### [facility] [address] [place] [address] MCV (RBC) [Entitic vol] 88.0 fL Normal 80.0-100.0 [facility] Comment on above: Performed By: #### 2 585477, 37778312, 2697087, 9113903, 4235542, 0074162 #### [facility] [address] [place] [address] Stephenson Absolute 0.6 E9/L Normal 0.2-1.0 [facility] Comment on above: Performed By: #### 2 462993, 42368906, 8060034, 1952295, 5062195, 7733277 #### [facility] [address] [place] [address] Monocytes/100 WBC (Bld) 9.5 % Normal 4.0-14.0 [facility] Comment on above: Performed By: #### 2 442378, 20547147, 4308129, 6904570, 6714313, 9581427 #### [facility] [address] [place] [address] Neutro Absolute 3.8 E9/L Normal 2.0-7.5 [facility] Comment on above: Performed By: #### 2 820275, 59596971, 7113960, 2558837, 5410714, 9362160 #### [facility] [address] [place] [address] Neutro Auto 57.3 % Normal 36.0-75.0 [facility] Comment on above: Performed By: #### 2 681976, 63592119, 7215980, 6971546, 9228989, 6948114 #### [facility] [address] [place] [address] Platelet 186.0 E9/L Normal 150.0-500.0 [facility] Comment on above: Performed By: #### 2 994327, 59941906, 5290456, 9920077, 5035391, 8987449 #### [facility] [address] [place] [address] Platelet mean volume (Bld) [Entitic vol] 8.0 fL Normal 6.4-10.8 [facility] Comment on above: Performed By: #### 2 467531, 48316306, 4988680, 8122093, 8589660, 4219812 #### [facility] [address] [place] [address] RBC 4.1 E12/L Low 4.3-5.9 [facility] Comment on above: Performed By: #### 2 768266, 96892690, 5421309, 5045816, 3028101, 2571819 #### [facility] [address] [place] [address] WBC 6.6 E9/L Normal 4.0-11.0 [facility] Comment on above: Performed By: #### 2 584964, 33424106, 9842031, 0427229, 7206875, 9364404 #### [facility] [address] [place] [address] CHEMISTRYOrdered By: SYSTEM SYSTEM on 09-17-2023 Anion [...] 79 mg/dL Normal 55 - 99 mg/dL [facility] Subsection Comment on above: Result Comment: Neli cain RN/ POC Device SN [id number] 1 Invalid Interpretation Code [facility] Subsection POC User ID [id number] 1 Invalid Interpretation Code [facility] Subsection POC Username ZIGGY HOLGUIN Invalid Interpretation Code [facility] Subsection CNPNon 09-17-2023 CNPN Normal [facility] COAGULATIONOrdered By: Han Frost on 09-17-2023 aPTT Coag (PPP) [Time] 38.2 s High 25.1 - 36.5 second(s) [facility] Coag Comment on above: Interpretive [...] the same coagulation reagent and instrumentation as [facility]. Currently there are no coagulation studies available worldwide for children to 14 days, and no normal ranges. Heparin therapeutic range (represented by Anti-Factor Xa activity of 0.2 - 0.4 U/mL) corresponds to PTT of 56.6 - 109.0 sec. INR Coag (PPP) [Relative time] 1.4 {INR} Invalid Interpretation Code [facility] Comment on above: Interpretive Data: I NR results are specifically intended to assess patients stabilized on long-term Anticoagulation therapy suggested INR s Less Intensive Anticoagulation 2.0 3.0 Conventional Range 3.0 4.5 PT Coag (PPP) [Time] 16.4 s High 9.4 - 1 2.5 second(s) [facility] Comment on above: Interpretive [...] the same coagulation reagent and instrumentation as [facility]. Currently there are no coagulation studies available worldwide for children to 14 days, and no normal ranges. Capillary Glucose POCon Glucose [Mass/Vol] 79 mg/dL Normal 55-99 [facility] Comment on above: Result Comment: Neli cain RN/ Performed By: #### 2 [id number] ####[facility] [address] [place] [address] Consent for Treatmenton Consent for Treatment [id number]#1 .00TIFF Normal [facility] Discharge Instructionson Discharge Instructions [id number]# 1.00TIFF Normal [facility] ED Clinical Summaryon 2023 ED Clinical Summary [address] [address] ED Clinical Summary Person Information Name: HARJIT ASENCIO/[facility] Age: 73 Years : 1950 Sex: Female Language: Sierra Leonean PCP: Peggy Nazario MD Marital Status: Visit [...] 09/17/2023 06:16:25 09/17/2023 06:16:25 09/17/2023 06:16:25 ADDRESS: [address] [place] [address] [address] [facility] [id number] PHYS DOC NOTES: MEDICAL INFORMATION: Prescriptions Given: [...] up: With: Address: When: Peggy Nazario [address] [place] [address] alphacityguides (1) In 3 days DIAGNOSIS: Acid reflux; Medication reaction Normal [facility] ED Note-Physicianon 09-17-19 ED Note-Physician Basic Information [...] and Complexity of Problems Differential Diagnosis: [] [facility] Data External documents reviewed: N/A My [...] Information Peggy Nazario In 3 days [address] [place] [address] [facility] (1) Additional Instructions: Patient Education Drug Allergy [...] (02/01/2019), C (more content not included)... Normal [facility] Comment on above: Result Comment: [...] vinegar, hot sauces, and barbecue sauce. ? Channahon fruit juices and citrus fruits, such as oranges, ronald, and limes. ? Tomato-based foods, such as red sauce, chili, salsa, and pizza with red sauce. ? Fried and fatty foods, such as donuts, georgian fries, potato chips, and high-fat dressings. ? [...] your health care provider. Medicines ? Take vuqh-cwb-aicihxk and prescription medicines only as told by [...] by your health care provider. ? Take uczx-xls-eqfmkwj and prescription medicines only as told by [...] provider. Document Revised: 02/03/2021 Document Reviewed: 02/03/2021 [employer] Patient Education ? 2022 [employer]. Pharmacology Drug Allergy A drug allergy happens when the body's disease-fighting system (immune system) reacts badly to a medicine. Drug allergies range from mild to severe. A drug allergy is not the same as a medicine side effect, which is a known possible reaction to the drug. A drug allergy is a (more content not included)... Normal [facility] ED Patient Summaryon 024 ED Patient Summary [place] [id number] Patient Discharge Instructions Person Information Name: HARJIT ASENCIO I Age: 73 Years Arrival Date: 09/17/2023 04:55:16 Discharge Diagnosis: Acid reflux; Medication reaction Primary Care Physician: Peggy Nazario MD Provider Information Primary Provider: Parveen Ayers DO Advanced Service Attendant Cafeteria:None The exam and treatment you received in the Emergency Department were for an urgent problem and are not intended as complete care. It is important that you follow up with a doctor, nurse practitioner, or physician?s phys assistant for ongoing care. If your symptoms [...] Follow-up Instructions: With: Address: When: Peggy Nazario [address] [place] [id number] [facility] (1) In 3 days In the event that this physician does not participate in your insurance network, please consult with your insurance company to find a nearby participating provider. Patient Education Materials: Drug Allergy; Heartburn A MESSAGE TO ALL PATIENTS REGARDING OPIOIDS PRESCRIPTION OPIOIDS: WHAT YOU NEED TO KNOW Prescription opioids can be used to help relieve hjglrbvj-gq-flqoyq pain and are often prescribed following a [...] be struggling with addiction, tell your health palliative care nurse and ask for guidance or call SAM[employer]?S National Helpline at 4-363-703-HELP. v Source: [place] Department of Health and (more content not included)... Normal [facility] HEMATOLOGYOrdered By: SYSTEM SYSTEM on [...] Normal 80.0 - 100.0 fL Remisol Heme Stephenson Absolute 0.6 E9/L Normal 0.2 - 1.0 [...] Remisol Heme Monitor Recordon 09-17-2023 Monitor Record [id number]# 1.00TIFF Normal [facility] PT & PTTon 09-17-2023 aPTT Coag (PPP) [Time] 38.2 second(s) High 25.1-36.5 [facility] Comment on above: Result Comment: [...] the same coagulation reagent and instrumentation as [facility] Currently there are no coagulation studies available worldwide for children to 14 days, and no normal ranges. Heparin therapeutic range (represented by Anti-Factor Xa activity of 0.2 - 0.4 U/mL) corresponds to PTT of 56.6 - 109.0 sec. Performed By: #### 2 647717, 81340569, 6263264, 7382210, 4514231, 5600544 #### [facility] [address] [place] [address] INR Coag (PPP) [Relative time] 1.4 {INR} Invalid Interpretation Code [facility] Comment on above: Result Comment: INR results are specifically intended to assess patients stabilized on long-term Anticoagulation therapy suggested INR?s ?Less Intensive Anticoagulation? 2.0 ? 3.0 Conventional Range 3.0 ? 4.5 Performed By: #### 2 122225, 41550154, 8914428, 1278463, 2254488, 8765628 #### [facility] [address] [place] [address] PT Coag (PPP) [Time] 16.4 second(s) High 9.4-12.5 [facility] Comment on above: Result Comment: [...] the same coagulation reagent and instrumentation as [facility]. Currently there are no coagulation studies available worldwide for children to 14 days, and no normal ranges. Performed By: #### 2 527265, 87782786, 6782893, 7287497, 6347058, 7368490 #### [facility] [address] [place] [address] Troponin 0 Hr.on 09-17-2023 Troponin 11.70 pg/mL Normal 10.10-27.10 [facility] Comment on above: Result Comment: The 95% CI (Confidence Interval) PPV (Positive Predictive Value) for myocardial infarction in females is 38 pg/mL, in males 51 pg/mL. The results should be used in conjunction with clinical conditions of myocardial infarction. (Access High Sensitivity Troponin I Instructions For Use, Marlys Belvidere, March 2018) Performed By: #### 2 738133, 02921808, 4323709, 7177306, 7879081, 9541837 #### [facility] [address] [place] [address] XR Chest Single Viewon 09-17 XR Chest [...] mGy = na DAP = na Normal [facility] eGFRon 09-17-2023 eGFR 90 mL/min/1.73 m2 Normal >=59 [facility] Comment on above: Order Comment: Order added by Discern Expert. Performed By: #### 2 462794, 42208257, 9809404, 7237326, 8591529, 4236116 #### [facility] [address] [facility] [place] [address] BMPon 09-12-2023 Anion gap [Moles/Vol] 12 mmol/L Normal 6-16 [facility] Comment on above: Performed By: #### 2 919880, 67598833, 1549022, 6356652, 4615174, 6375100 #### [facility] [address] [place] [address] BUN/Creat Ratio 27 No Units High 10-20 [facility] Comment on above: Performed By: #### 2 217223, 46711751, 2442309, 2526653, 7604759, 7965833 #### [facility] [address] [facility] [place] [address] Calcium [Mass/Vol] 9.5 mg/dL Normal 8.9-11.1 [facility] Comment on above: Performed By: #### 2 958576, 33875011, 0738301, 9883750, 8614038, 3926896 #### [facility] [address] [place] [address] Chloride [Moles/Vol] 101 mmol/L Normal 101-111 [facility] Comment on above: Performed By: #### 2 424554, 05869590, 8349254, 2109893, 8058726, 3451496 #### [facility] [address] [place] [address] CO2 [Moles/Vol] 27 mmol/L Normal 21-31 [facility] Comment on above: Performed By: #### 2 908961, 51061790, 6508520, 3308264, 8540013, 8432212 #### [facility] [address] [place] [address] Creatinine [Mass/Vol] 0.9 mg/dL Normal 0.5-1.3 [facility] Comment on above: Performed By: #### 2 745813, 89664998, 5861187, 6958444, 6324268, 2175964 #### [facility] [address] [place] [address] Glucose [Mass/Vol] 87 mg/dL Normal 55-199 [facility] Comment on above: Performed By: #### 2 088174, 50804244, 3910808, 7821572, 2048382, 0074068 #### [facility] [address] [place] [address] Potassium [Moles/Vol] 4.9 mmol/L Normal 3.5-5.3 [facility] Comment on above: Performed By: #### 2 282790, 16759041, 9758503, 7859303, 1825828, 5955022 #### [facility] [address] [place] [address] Sodium [Moles/Vol] 135 mmol/L Normal 135-145 [facility] Comment on above: Performed By: #### 2 775801, 16675818, 4562413, 3883501, 7305998, 0137206 #### [facility] [address] [place] [address] Urea nitrogen [Mass/Vol] 24 mg/dL High 5-21 [facility] Comment on above: Performed By: #### 2 175388, 66582999, 8442676, 8165431, 1273448, 2445719 #### [facility] [address] [place] [address] CBC w/ Auto Diffon 4 Basophil Absolute 0.1 E9/L Normal 0.0-0.2 [facility] Comment on above: Performed By: #### 2 413299, 38917065, 9390150, 9023942, 1409328, 4642102 #### [facility] [address] [place] [address] Basophils/100 WBC (Bld) 1.1 % Normal 0.0-2.0 [facility] Comment on above: Performed By: #### 2 968932, 04582795, 8202051, 7500161, 6097106, 9146503 #### [facility] [address] [place] [address] Eos Absolute 0.1 E9/L Normal 0.0-0.5 [facility] Comment on above: Performed By: #### 2 080619, 56843980, 0556925, 2993269, 8955568, 1640427 #### [facility] [address] [place] [address] Eosinophils/100 WBC (Bld) 1.2 % Normal 0.0-8.0 [facility] Comment on above: Performed By: #### 2 744062, 98205022, 6816381, 4825523, 3707986, 1188108 #### [facility] [address] [place] [address] Erythrocyte distribution width (RBC) [Ratio] 13.7 % Normal 10.9-14.2 [facility] Comment on above: Performed By: #### 2 272280, 18806893, 2675483, 7366542, 1707937, 4884797 #### [facility] [address] [place] [address] Hematocrit (Bld) [Volume fraction] 41.0 % Normal 34.0-46.0 [facility] Comment on above: Performed By: #### 2 182551, 91154826, 9577823, 8726387, 8703669, 7105425 #### [facility] [address] [place] [address] Hemoglobin (Bld) [Mass/Vol] 13.4 g/dL Normal 12.0-16.0 [facility] Comment on above: Performed By: #### 2 610244, 32535384, 1880560, 6077977, 1979422, 1927455 #### [facility] [address] [place] [address] Lymph Absolute 1.9 E9/L Normal 1.0-4.0 [facility] Comment on above: Performed By: #### 2 670492, 94655671, 0163688, 0216682, 4282277, 0096982 #### [facility] [address] [place] [address] Lymphocytes/100 WBC (Bld) 25.9 % Normal 14.0-50.0 [facility] Comment on above: Performed By: #### 2 101401, 82284467, 1704156, 0217088, 3773889, 7373267 #### [facility] [address] [place] [address] MCH (RBC) [Entitic mass] 29.5 pg Normal 27.0-34.0 [facility] Comment on above: Performed By: #### 2 313400, 30609416, 7580642, 2982814, 7281969, 5332938 #### [facility] [address] [place] [address] MCHC (RBC) [Mass/Vol] 32.9 g/dL Normal 31.4-36.0 [facility] Comment on above: Performed By: #### 2 017556, 51080957, 9767799, 6438301, 6810074, 1014299 #### [facility] [address] [place] [address] MCV (RBC) [Entitic vol] 89.6 fL Normal 80.0-100.0 [facility] Comment on above: Performed By: #### 2 636135, 29310889, 5439653, 7423746, 6511260, 4800652 #### [facility] [address] [place] [address] Stephenson Absolute 0.6 E9/L Normal 0.2-1.0 [facility] Comment on above: Performed By: #### 2 334994, 05305869, 4145226, 7291917, 7438864, 0992411 #### [facility] [address] [place] [address] Monocytes/100 WBC (Bld) 8.0 % Normal 4.0-14.0 [facility] Comment on above: Performed By: #### 2 541518, 40500569, 8655465, 6168202, 2148182, 1331005 #### [facility] [address] [place] [address] Neutro Absolute 4.7 E9/L Normal 2.0-7.5 [facility] Comment on above: Performed By: #### 2 083834, 10651521, 4692965, 6125249, 5237064, 6972775 #### [facility] [address] [place] [address] Neutro Auto 63.8 % Normal 36.0-75.0 [facility] Comment on above: Performed By: #### 2 854627, 63339917, 3441522, 8432304, 5066261, 9574477 #### [facility] [address] [place] [address] Platelet 214.0 E9/L Normal 150.0-500.0 [facility] Comment on above: Performed By: #### 2 224495, 93584069, 6472753, 4730337, 4532591, 4030007 #### [facility] [address] [place] [address] Platelet mean volume (Bld) [Entitic vol] 8.2 fL Normal 6.4-10.8 [facility] Comment on above: Performed By: #### 2 593550, 36943499, 8979188, 1788467, 8121766, 8296478 #### [facility] [address] [place] [address] RBC 4.6 E12/L Normal 4.3-5.9 [facility] Comment on above: Performed By: #### 2 262279, 82658521, 0499052, 9718949, 5309261, 1911057 #### [facility] [address] [place] [address] WBC 7.4 E9/L Normal 4.0-11.0 [facility] Comment on above: Performed By: #### 2 092382, 18628840, 2846384, 0829056, 0315743, 4055380 #### [facility] [address] [place] [address] CHEMISTRYOrdered By: Maryan Frost on 09-12-2023 U [...] Marlys Ariadne, March 2018) Urea nitrogen [Mass/Vol] 24 mg/dL High 5 - 21 mg/dL Remisol Chem Urea nitrogen/Creatinine [Mass ratio] 27 mg/mg High 10 - 20 Remisol Chem CHEMISTRYOrdered By: Karlos ROP User on 09-12-2023 Glucose [Mass/Vol] 96 mg/dL Normal 55 - 99 mg/dL [facility] [place] Subsection Comment on above: Result Comment: Neli cain RN/ POC Device SN [id number] Invalid Interpretation Code [facility] Subsection POC User ID [id number] 1 Invalid Interpretation [place] [facility] [place] POC Username CORINNE COTA Invalid Interpretation Code [facility] Subsection CNPNon 09-12-2023 CNPN Normal [facility] CT Head or Brain w/o [...] Technologist: JON Technical Comments Contrast: None Normal [facility] Capillary Glucose POCon 08-16 Glucose [Mass/Vol] 96 mg/dL Normal 55-99 [facility] Comment on above: Result Comment: Neli cain RN/ Performed By: #### 2 204275, [id number], 8110563, 2742440, 2576290, 6054428 #### [facility] Laboratory [address] [place] [address] Consent for Treatmenton 08-16 Consent for Treatment [id number] .00TIFF Normal [facility] Discharge Instructionson Discharge Instructions [id number] .00TIFF Normal [facility] ED Clinical Summaryon 2023 ED Clinical Summary [address] [address] ED Clinical Summary Person Information Name: HARJIT ASENCIO I Patricia[facility] Age: 73 Years : 1950 Sex: Female Language: Sierra Leonean PCP: Aravind MCMAHON, Peggy Mcmillan Marital Status: [...] 09/12/2023 06:47:40 09/12/2023 06:47:40 09/12/2023 06:47:40 ADDRESS: [address] [place] [phone] PHYS DOC NOTES: MEDICAL INFORMATION: Prescriptions Given: [...] up: With: Address: When: Peggy Nazario [address] [place] [address] Business (1) In 3 days DIAGNOSIS: Acid reflux; Tremor Normal [facility] ED Note-Physicianon 09-12-19 ED Note-Physician Basic [...] and Complexity of Problems Differential Diagnosis: [] [facility] Data External documents reviewed: N/A My [...] Nazario In [address] [place] [address]- alphacityguides (1) Additional Instructions: Patient Education Tremor Gastroesophageal [...] urethral stri (more content not included)... Normal [facility] Comment on above: Result Comment: [...] vinegar, hot sauces, and barbecue sauce. ? Channahon fruit juices and citrus fruits, such as oranges, ronald, and limes. ? Tomato-based foods, such as red sauce, chili, salsa, and pizza with red sauce. ? Fried and fatty foods, such as donuts, georgian fries, potato chips, and high-fat dressings. ? [...] safe eugene (more content not included)... Normal [facility] ED Patient Summaryon 024 ED Patient Summary [place] [id number] Patient Discharge Instructions Person Information Name: HARJIT ASENCIO I Age: 73 Years Arrival Date: 09/12/2023 04:02:15 Discharge Diagnosis: Acid reflux; Tremor Primary Care Physician: Peggy Nazario MD Provider Information Primary Provider: Parveen Ayers DO Advanced Service Attendant Cafeteria:None The exam and treatment you received in the Emergency Department were for an urgent problem and are not intended as complete care. It is important that you follow up with a doctor, nurse practitioner, or physician?s phys assistant for ongoing care. If your symptoms become worse or you do not improve as expected and you are unable to reach your usual health care provider, you should return to the Emergency Department. We are available 24 hours a day. ELIF, HARJIT I has been given the following list of patient education materials, prescriptions and follow-up instructions: Follow-up Instructions: With: Address: When: Peggy Nazario [address] [place] [address] Business (1) In 3 days In the event that this physician does not participate in your insurance network, please consult with your insurance company to find a nearby participating provider. Patient Education Materials: Tremor; Gastroesophageal Reflux Disease, Adult A MESSAGE TO ALL PATIENTS REGARDING OPIOIDS PRESCRIPTION OPIOIDS: WHAT YOU NEED TO KNOW Prescription opioids can be used to help relieve ggbuifbt-wp-hjmuea pain and are often prescribed following a [...] be struggling with addiction, tell your health palliative care nurse and ask for guidance or call [facility]S National Helpline at 7-438-765-KZFY. a Source: [place] Department of (more content not included)... Normal [facility] HEMATOLOGYOrdered By: SYSTEM SYSTEM on [...] Normal 80.0 - 100.0 fL Remisol Heme Stephenson Absolute 0.6 E9/L Normal 0.2 - 1.0 [...] Remisol Heme Monitor Recordon 09-12-2023 Monitor Record [id number]# 1.00TIFF Normal [facility] Troponin 0 Hr.on 09-12-2023 Troponin 12.70 pg/mL Normal 10.10-27.10 [facility] Comment on above: Result Comment: The 95% CI (Confidence Interval) PPV (Positive Predictive Value) for myocardial infarction in females is 38 pg/mL, in males 51 pg/mL. The results should be used in conjunction with clinical conditions of myocardial infarction. (Access High Sensitivity Troponin I Instructions For Use, Marlys Belvidere, March 2018) Performed By: #### 2 683972, 80205643, 1389852, 8342726, 8481419, 5811646 #### [facility] Laboratory [address] [place] [address] U Drug Screenon 09-12-2023 U Amph Scr Negative Invalid Interpretation Code [facility] Comment on above: Performed By: #### 2 515663, 52088135, 7500586, 5040168, 1919028, 4422520 #### [facility] Laboratory [address] [place] [address] U Hayley Scr Negative Invalid Interpretation Code [facility] Comment on above: Performed By: #### 2 619556, 52411494, 1472076, 4164568, 5888645, 9578293 #### [facility] Laboratory [address] [place] [address] U Benzodia Scr Negative Invalid Interpretation Code [facility] Comment on above: Performed By: #### 2 899981, 63784916, 0996057, 5509466, 8186401, 7500862 #### [facility] Laboratory [address] [place] [address] U Cannab Scr Negative Invalid Interpretation Code [facility] Comment on above: Performed By: #### 2 681624, 86387643, 7523176, 4193781, 4444205, 9796780 #### [facility] Laboratory [address] [place] [address] U Cocaine Scr Negative Invalid Interpretation Code [facility] Comment on above: Performed By: #### 2 376133, 41200111, 3133954, 8830116, 5948374, 3130922 #### [facility] Laboratory [address] [place] [address] U Opiate Scr Negative Invalid Interpretation Code [facility] Comment on above: Performed By: #### 2 448512, 02059178, 6039258, 0466482, 3875234, 7242933 #### [facility] Laboratory [address] [place] [address] U PCP Scr Negative Invalid Interpretation Code [facility] Comment on above: Performed By: #### 2 465879, 53613237, 7038947, 0796704, 1161386, 9402570 #### [facility] Laboratory [address] [place] [address] UA With Cult Reflexon 2023 Bilirubin Ql (U) Negative Normal Negative [facility] Comment on above: Performed By: #### 1 2207568 #### [facility] Laboratory [address] [place] [address] Clarity (U) CLEAR Normal Clear [facility] Comment on above: Performed By: #### 1 4635127 #### [facility] Laboratory [address] [place] [address] Color (U) STRAW Invalid Interpretation Code [facility] Comment on above: Performed By: #### 1 0020657 #### [facility] Laboratory [address] [place] [address] Epithelial cells.squamous LM.HPF (Urine sed) [#/Area] 0-2 Normal 0-2 [facility] Comment on above: Performed By: #### 1 2980923 #### [facility] Laboratory [address] [place] [address] Glucose Test strip (U) [Mass/Vol] Negative Normal Negative [facility] Comment on above: Performed By: #### 1 0539457 #### [facility] Laboratory [address] [place] [address] Hemoglobin Ql (U) 1+ Abnormal Negative [facility] Comment on above: Performed By: #### 1 1588211 #### [facility] Laboratory [address] [place] [address] Ketones (U) [Mass/Vol] Negative Normal Negative [facility] Comment on above: Performed By: #### 1 4553187 #### [facility] Laboratory [address] [place] [address] [place]arwood.plasma/Lithiu m.RBC (Bld) [Mass ratio] 0-3 Normal 0-3 [facility] Comment on above: Performed By: #### 1 5098814 #### [facility] Laboratory [address] [place] [address] Nitrite Ql (U) Negative Normal Negative [facility] Comment on above: Performed By: #### 1 2579647 #### [facility] Laboratory [address] [place] [address] pH (U) 7.0 [pH] Invalid Interpretation Code 5.0-9.0 [facility] Comment on above: Performed By: #### 1 0221701 #### [facility] Laboratory [address] [place] [address] Protein (U) [Mass/Vol] Negative Normal Negative [facility] Comment on above: Performed By: #### 1 0540175 #### [facility] Laboratory [address] [place] [address] Specific gravity (U) [Rel density] <=1.005 Invalid Interpretation Code 1.005-1.030 [facility] Comment on above: Performed By: #### 1 4923250 #### [facility] Laboratory [address] [place] [address] Type of Urine collection method Clean Catch Normal [facility] Comment on above: Performed By: #### 1 2558199 #### [facility] Laboratory [address] [place] [address] Urobilinogen Qn (U) 0.2 {Judith'U}/dL Normal 0.0-1.0 [facility] Comment on above: Performed By: #### 1 3842462 #### [facility] Laboratory [address] [place] [address] WBC Auto Ql (U) TRACE Abnormal Negative [facility] Comment on above: Performed By: #### 1 3634390 #### [facility] Laboratory [address] [place] [address] WBC LM.HPF (Urine sed) [#/Area] 0-5 Normal 0-5 [facility] Comment on above: Performed By: #### 1 5356687 #### [facility] Laboratory [address] [place] [address] URINALYSISOrdered By: Ethan Frost on 09-12-2023 Bilirubin [...] AM) Normal Negative [facility] UA Auto SS [place].plasma/Lithiu m.RBC (Bld) [Mass ratio] 0-3 /HPF Normal [...] Desc Clean Catch (09/12/23 4:53 AM) Normal [facility] UA Auto SS Urobilinogen Qn (U) 0.9256216 {Judith'U}/dL Normal 0.0 - 1.0 EU/dL [facility] [...] mGy = na DAP = na Normal [facility] eGFRon 09-12-2023 eGFR 66 mL/min/1.73 m2 Normal >=59 [facility] Comment on above: Order Comment: Order Added by Discern Expert. Performed By: #### 2 229550, 45658869, 8435887, 8498265, 5457172, 1945981 #### [facility] Laboratory [address] [place] [address] CNPNon 09-07-2023 CNPN Normal [facility] CNPNon 09-01-2023 CNPN Normal [facility] CBC panel Auto (Bld)on 08-31 Erythrocyte distribution width (RBC) [Ratio] 12.9 % Normal 11.5-15.0 [facility] Comment on above: Order Comment: Speci men Type: BLOOD SPECIMENOrdering Facility: [facility] Address: [address] [place] [address] Performed By: #### 5 8410-2 ####[facility] LABCLIA [id number] [place] [address] [place] Hematocrit (Bld) [Volume fraction] 36.1 % Normal 36.0-46.0 [facility] Comment on above: Order Comment: Speci men Type: BLOOD SPECIMENOrdering Facility: [facility] Address: [address] [place] [address] Performed By: #### 5 8410-2 ####[facility] LABCLIA [id number] [place] [address] [place] Hemoglobin (Bld) [Mass/Vol] 11.9 g/dL Normal 11.5-15.5 [facility] Comment on above: Order Comment: Speci men Type: BLOOD SPECIMENOrdering Facility: [facility] Address: [address] [place] [address] Performed By: #### 5 8410-2 ####[facility] LABCLIA [id number] [place] [address] [place] MCH (RBC) [Entitic mass] 29.5 pg Normal 26.0-34.0 [facility] Comment on above: Order Comment: Speci men Type: BLOOD SPECIMENOrdering Facility: [facility] Address: [address] [place] [address] Performed By: #### 5 8410-2 ####[facility] LABCLIA [id number] [place] [address] [place] MCHC (RBC) [Mass/Vol] 33.0 g/dL Normal 30.5-36.0 [facility] Comment on above: Order Comment: Speci men Type: BLOOD SPECIMENOrdering Facility: [facility] Address: [address] [place] [address] Performed By: #### 5 8410-2 ####[facility] LABIA [id number] [place] [address] [place] MCV (RBC) [Entitic vol] 89.4 fL Normal 80.0-100.0 [facility] Comment on above: Order Comment: Speci men Type: BLOOD SPECIMENOrdering Facility: [facility] Address: [address] [place] [address] Performed By: #### 5 8410-2 ####[facility] LABCLIA [id number] [place] [address] [place] Nucleated RBC (Bld) [#/Vol] 10*3/uL Normal <0.01 [facility] Comment on above: Order Comment: Speci men Type: BLOOD SPECIMENOrdering Facility: [facility] Address: [address] [place] [address] Performed By: #### 5 8410-2 ####[facility] LABCLIA [id number] [place] [address] [place] Platelet mean volume (Bld) [Entitic vol] 10.2 fL Normal 9.0-12.7 [facility] Comment on above: Order Comment: Speci men Type: BLOOD SPECIMENOrdering Facility: [facility] Address: [address] [place] [address] Performed By: #### 5 8410-2 ####[facility] LABIA [id number] [place] [address] [place] Platelets (Bld) [#/Vol] 175 10*3/uL Normal 150-400 [facility] Comment on above: Order Comment: Speci men Type: BLOOD SPECIMENOrdering Facility: [facility] Address: [address] [place] [address] Performed By: #### 5 8410-2 ####[facility] LABIA [id number] [place] [address] [place] RBC (Bld) [#/Vol] 4.04 10*6/uL Normal 3.90-5.20 [facility] Comment on above: Order Comment: Speci men Type: BLOOD SPECIMENOrdering Facility: [facility] Address: [address] [place] [address] Performed By: #### 5 8410-2 ####[facility] LABIA [id number] [place] [address] [place] WBC (Bld) [#/Vol] 6.11 10*3/uL Normal 3.70-11.00 [facility] Comment on above: Order Comment: Speci men Type: BLOOD SPECIMENOrdering Facility: [facility] Address: [address] [place] [address] Performed By: #### 5 8410-2 ####[facility] LABCLIA [id number] [address] [address] [place] CNDSon 08-31-2023 CNDS Normal [facility] Comprehensive metabolic 2000 panelon 08-31-2023 Albumin [Mass/Vol] 3.5 g/dL Low 3.9-4.9 [facility] Comment on above: Order Comment: Speci men Type: BLOOD SPECIMENOrdering Facility: [facility] Address: [address] [place] [address] Performed By: #### 1 9123-9, 25152-4 ####[facility] LABCLIA [id number] [place] [address] [place] ALP [Catalytic activity/Vol] 52 U/L Normal 34-123 [facility] Comment on above: Order Comment: Speci men Type: BLOOD SPECIMENOrdering Facility: [facility] Address: [address] [place] [address] Performed By: #### 1 9123-9, 96429-2 ####[facility] LABCLIA [id number] [place] [address] [place] ALT [Catalytic activity/Vol] 24 U/L Normal 7-38 [facility] Comment on above: Order Comment: Speci men Type: BLOOD SPECIMENOrdering Facility: [facility] Address: [address] [place] [address] Performed By: #### 1 9123-9, 64056-1 ####[facility] LABCLIA [id number] [place] [id number] [place] Anion gap [Moles/Vol] 9 mmol/L Normal 9-18 [facility] Comment on above: Order Comment: Speci men Type: BLOOD SPECIMENOrdering Facility: [facility] Address: [address] [place] [address] Performed By: #### 1 9123-9, 99315-1 ####[facility] LABCLIA [id number] [place] [address] [place] AST [Catalytic activity/Vol] 20 U/L Normal 13-35 [facility] Comment on above: Order Comment: Speci men Type: BLOOD SPECIMENOrdering Facility: [facility] Address: [address] [place] [address] Performed By: #### 1 9123-9, 71954-4 ####[facility] LABCLIA [id number] [place] [address] [place] Bilirubin [Mass/Vol] 0.5 mg/dL Normal 0.2-1.3 [facility] Comment on above: Order Comment: Speci men Type: BLOOD SPECIMENOrdering Facility: [facility] Address: [address] [place] [address] Performed By: #### 1 9123-9, 11189-5 ####[facility] LABCLIA [id number] [place] [address] [place] Calcium [Mass/Vol] 9.2 mg/dL Normal 8.5-10.2 [facility] Comment on above: Order Comment: Speci men Type: BLOOD SPECIMENOrdering Facility: [facility] Address: [address] [place] [address] Performed By: #### 1 9123-9, 05648-0 ####[facility] LABCLIA [id number] [place] [address] [place] Chloride [Moles/Vol] 103 mmol/L Normal 97-105 [facility] Comment on above: Order Comment: Speci men Type: BLOOD SPECIMENOrdering Facility: [facility] Address: [address] [place] [address] Performed By: #### 1 9123-9, 53886-6 ####[facility] LABCLIA [id number] [place] [address] [place] CO2 [Moles/Vol] 25 mmol/L Normal 22-30 [facility] Comment on above: Order Comment: Speci men Type: BLOOD SPECIMENOrdering Facility: [facility] Address: [address] [place] [address] Performed By: #### 1 9123-9, ####[facility] LABCLIA [id number] [address] [address] [place] Creatinine [Mass/Vol] 0.90 mg/dL Normal 0.58-0.96 [facility] Comment on above: Order Comment: Speci men Type: BLOOD SPECIMENOrdering Facility: [facility] Address: [address] [place] [address] Performed By: #### 1 9123-9, ####[facility] LABIA [id number] [place] [address] [place] Creatinine and Glomerular filtration rate.predicted panel (S/P/Bld) 67 mL/min/1.73m??? Normal >=60 [facility] Comment on above: Order Comment: Speci men Type: BLOOD SPECIMENOrdering Facility: [facility] Address: [address] [place] [address] Result Comment: Shelley mated Glomerular Filtration Rate [...] actual GFR. Performed By: #### 1 9123-9, ####[facility] LABCLIA [id number] [place] [address] [place] Glucose [Mass/Vol] 85 mg/dL Normal 74-99 [facility] Comment on above: Order Comment: Speci men Type: BLOOD SPECIMENOrdering Facility: [facility] Address: [address] [place] [address] Result Comment: The [place] Diabetes Association (ADA) provides guidance for cutoff [...] Standards of Medical Care in Diabetes 2016, [place] [employer] Association. Diabetes Care. 2016.39(Suppl 1). Performed By: #### 1 9123-9, ####[facility] LABIA [id number] [place] [address] [place] Potassium [Moles/Vol] 4.3 mmol/L Normal 3.7-5.1 [facility] Comment on above: Order Comment: Speci men Type: BLOOD SPECIMENOrdering Facility: [facility] Address: [address] [place] [address] Performed By: #### 1 9123-9, ####[facility] LABIA [id number] [place] [address] [place] Protein [Mass/Vol] 5.9 g/dL Low 6.3-8.0 [facility] Comment on above: Order Comment: Speci men Type: BLOOD SPECIMENOrdering Facility: [facility] Address: [address] [place] [address] Performed By: #### 1 9123-9, ####[facility] LABIA [id number] [place] [address] [place] Sodium [Moles/Vol] 137 mmol/L Normal 136-144 [facility] Comment on above: Order Comment: Speci men Type: BLOOD SPECIMENOrdering Facility: [facility] Address: [address] [place] [address] Performed By: #### 1 9123-9, ####[facility] LABCLIA [id number] [place] [id number] [place] Urea nitrogen [Mass/Vol] 16 mg/dL Normal 7-21 [facility] Comment on above: Order Comment: Speci men Type: BLOOD SPECIMENOrdering Facility: [facility] Address: [address] [place] [address] Performed By: #### 1 9123-9, 00543-8 ####[facility] LABCLIA [id number] [place] [address] [place] Magnesium SerPl-mCncon 08-31 Magnesium [Mass/Vol] 2.2 mg/dL Normal 1.7-2.3 [facility] Comment on above: Order Comment: Speci men Type: BLOOD SPECIMENOrdering Facility: [facility] Address: [address] [place] [address] Performed By: #### 1 9123-9, ####[facility] LABIA [id number] [place] [id number] [place] NUTRITIONon 08-31-2023 NUTRITION Normal [facility] PT EDon 08-31-2023 PT ED Normal [facility] PT ED Normal [facility] FEMALE PELVIS TRANSABD LT Don 08-31-2023 FEMALE PELVIS TRANSABD LTD Normal [facility] FEMALE PELVIS TRANSVAGon 08-31-2023 US FEMALE PELVIS TRANSVAG Normal [facility] CBC panel Auto (Bld)on 08-30 Erythrocyte distribution width (RBC) [Ratio] 13.1 % Normal 11.5-15.0 [facility] Comment on above: Order Comment: Speci men Type: BLOOD SPECIMENOrdering Facility: [facility] Address: [address] [place] [address] Performed By: #### 5 8410-2 ####[facility] LABCLIA [id number] [place] [id number] [place] Hematocrit (Bld) [Volume fraction] 38.9 % Normal 36.0-46.0 [facility] Comment on above: Order Comment: Speci men Type: BLOOD SPECIMENOrdering Facility: [facility] Address: [address] [place] [address] Performed By: #### 5 8410-2 ####[facility] LABIA [id number] [place] [address] [place] Hemoglobin (Bld) [Mass/Vol] 12.6 g/dL Normal 11.5-15.5 [facility] Comment on above: Order Comment: Speci men Type: BLOOD SPECIMENOrdering Facility: [facility] Address: [address] [place] [address] Performed By: #### 5 8410-2 ####[facility] LABIA [id number] [place] [address] [place] MCH (RBC) [Entitic mass] 29.9 pg Normal 26.0-34.0 [facility] Comment on above: Order Comment: Speci men Type: BLOOD SPECIMENOrdering Facility: [facility] Address: [address] [place] [address] Performed By: #### 5 8410-2 ####[facility] LABIA [id number] [place] [address] [place] MCHC (RBC) [Mass/Vol] 32.4 g/dL Normal 30.5-36.0 [facility] Comment on above: Order Comment: Speci men Type: BLOOD SPECIMENOrdering Facility: [facility] Address: [address] [place] [address] Performed By: #### 5 8410-2 ####[facility] LABIA [id number] [place] [address] [place] MCV (RBC) [Entitic vol] 92.2 fL Normal 80.0-100.0 [facility] Comment on above: Order Comment: Speci men Type: BLOOD SPECIMENOrdering Facility: [facility] Address: [address] [place], [place] [address] Performed By: #### 5 8410-2 ####[facility] LABCLIA [id number] [place] [address] [place] Nucleated RBC (Bld) [#/Vol] 10*3/uL Normal <0.01 [facility] Comment on above: Order Comment: Speci men Type: BLOOD SPECIMENOrdering Facility: [facility] Address: [address] [place] [address] Performed By: #### 5 8410-2 ####[facility] LABIA [id number] [place] [address] [place] Platelet mean volume (Bld) [Entitic vol] 10.4 fL Normal 9.0-12.7 [facility] Comment on above: Order Comment: Speci men Type: BLOOD SPECIMENOrdering Facility: [facility] Address: [address] [place] [address] Performed By: #### 5 8410-2 ####[facility] LABIA [id number] [place] [address] [place] Platelets (Bld) [#/Vol] 185 10*3/uL Normal 150-400 [facility] Comment on above: Order Comment: Speci men Type: BLOOD SPECIMENOrdering Facility: [facility] Address: [address] [place] [address] Performed By: #### 5 8410-2 ####[facility] LABCLIA [id number] [place] [address] [place] RBC (Bld) [#/Vol] 4.22 10*6/uL Normal 3.90-5.20 [facility] Comment on above: Order Comment: Speci men Type: BLOOD SPECIMENOrdering Facility: [facility] Address: [address] [place] [address] Performed By: #### 5 8410-2 ####[facility] LABCLIA [id number] [place] [address] [place] WBC (Bld) [#/Vol] 6.51 10*3/uL Normal 3.70-11.00 [facility] Comment on above: Order Comment: Speci men Type: BLOOD SPECIMENOrdering Facility: [facility] Address: [address] [place] [address] Performed By: #### 5 8410-2 ####[facility] LABCLIA [id number] [place] [address] [place] CNCOon 08-30-2023 CNCO Letter Text Normal [facility] CONSULT PROGon 08-30-2023 CONSULT PROG Normal [facility] Comprehensive metabolic 2000 panelon 08-30-2023 Albumin [Mass/Vol] 3.9 g/dL Normal 3.9-4.9 [facility] Comment on above: Order Comment: Speci men Type: BLOOD SPECIMENOrdering Facility: [facility] Address: [address] [place] [address] Performed By: #### 1 9123-9, 45836-7 ####[facility] LABCLIA [id number] [place] [address] [place] ALP [Catalytic activity/Vol] 65 U/L Normal 34-123 [facility] Comment on above: Order Comment: Speci men Type: BLOOD SPECIMENOrdering Facility: [facility] Address: [address] [place] [address] Performed By: #### 1 9123-9, 11359-3 ####[facility] LABCLIA [id number] [place] [address] [place] ALT [Catalytic activity/Vol] 28 U/L Normal 7-38 [facility] Comment on above: Order Comment: Speci men Type: BLOOD SPECIMENOrdering Facility: [facility] Address: [address] [place] [address] Performed By: #### 1 9123-9, 97568-2 ####[facility] LABCLIA [id number] [place] [address] [place] Anion gap [Moles/Vol] 9 mmol/L Normal 9-18 [facility] Comment on above: Order Comment: Speci men Type: BLOOD SPECIMENOrdering Facility: [facility] Address: [address] [place] [address] Performed By: #### 1 9123-9, 64816-5 ####[facility] LABCLIA [id number] [place] [address] [place] AST [Catalytic activity/Vol] 24 U/L Normal 13-35 [facility] Comment on above: Order Comment: Speci men Type: BLOOD SPECIMENOrdering Facility: [facility] Address: [address] [place] [address] Performed By: #### 1 9123-9, 43407-3 ####[facility] LABCLIA [id number] [place] [address] [place] Bilirubin [Mass/Vol] 0.5 mg/dL Normal 0.2-1.3 [facility] Comment on above: Order Comment: Speci men Type: BLOOD SPECIMENOrdering Facility: [facility] Address: [address] [place] [address] Performed By: #### 1 9123-9, 21888-7 ####[facility] LABCLIA [id number] [place] [address] [place] Calcium [Mass/Vol] 9.3 mg/dL Normal 8.5-10.2 [facility] Comment on above: Order Comment: Speci men Type: BLOOD SPECIMENOrdering Facility: [facility] Address: [address] [place] [address] Performed By: #### 1 9123-9, 99495-5 ####[facility] LABCLIA [id number] [place] [id number] [place] Chloride [Moles/Vol] 103 mmol/L Normal 97-105 [facility] Comment on above: Order Comment: Speci men Type: BLOOD SPECIMENOrdering Facility: [facility] Address: [address] [place] [address] Performed By: #### 1 9123-9, ####[facility] LABIA [id number] [place] [address] [place] CO2 [Moles/Vol] 25 mmol/L Normal 22-30 [facility] Comment on above: Order Comment: Speci men Type: BLOOD SPECIMENOrdering Facility: [facility] Address: [address] [place] [address] Performed By: #### 1 9123-9, ####[facility] LABIA [id number] [place] [address] [place] Creatinine [Mass/Vol] 1.11 mg/dL High 0.58-0.96 [facility] Comment on above: Order Comment: Speci men Type: BLOOD SPECIMENOrdering Facility: [facility] Address: [address] [place] [address] Performed By: #### 1 9123-9, ####[facility] LABIA [id number] [place] [address] [place] Creatinine and Glomerular filtration rate.predicted panel (S/P/Bld) 52 mL/min/1.73m??? Low >=60 [facility] Comment on above: Order Comment: Speci men Type: BLOOD SPECIMENOrdering Facility: [facility] Address: [address] [place] [address] Result Comment: Shelley mated Glomerular Filtration Rate [...] reflect actual GFR. Performed By: #### 1 23, ####[facility] LABCLIA [id number] [place] [address] [place] Glucose [Mass/Vol] 149 mg/dL High 74-99 [facility] Comment on above: Order Comment: Speci men Type: BLOOD SPECIMENOrdering Facility: [facility] Address: [address] [place] [address] Result Comment: The [place] [employer] (ADA) provides guidance for cutoff [...] Standards of Medical Care in Diabetes 2016, [place] [employer]. Diabetes Care. 2016.39(Suppl 1). Performed By: #### 1 239, ####[facility] LABIA [id number] [place] [address] [place] Potassium [Moles/Vol] 5.0 mmol/L Normal 3.7-5.1 [facility] Comment on above: Order Comment: Speci men Type: BLOOD SPECIMENOrdering Facility: [facility] Address: [address] [place] [address] Performed By: #### 1 239, ####[facility] LABIA [id number] [place] [address] [place] Protein [Mass/Vol] 6.3 g/dL Normal 6.3-8.0 [facility] Comment on above: Order Comment: Speci men Type: BLOOD SPECIMENOrdering Facility: [facility] Address: [address] [place] [address] Performed By: #### 1 239, ####[facility] LABCLIA [id number] [place] [id number] [place] Sodium [Moles/Vol] 137 mmol/L Normal 136-144 [facility] Comment on above: Order Comment: Speci men Type: BLOOD SPECIMENOrdering Facility: [facility] Address: [address] [place] [address] Performed By: #### 1 9123-9, 99742-7 ####[facility] LABIA [id number] [place] [id number] [place] Urea nitrogen [Mass/Vol] 19 mg/dL Normal 7-21 [facility] Comment on above: Order Comment: Speci men Type: BLOOD SPECIMENOrdering Facility: [facility] Address: [address] [place] [address] Performed By: #### 1 9123-9, 51953-2 ####[facility] LABIA [id number] [place] [id number] [place] Magnesium SerPl-mCncon 08-30 Magnesium [Mass/Vol] 2.2 mg/dL Normal 1.7-2.3 [facility] Comment on above: Order Comment: Speci men Type: BLOOD SPECIMENOrdering Facility: [facility] Address: [address] [place] [address] Performed By: #### 1 9123-9, 47758-6 ####[facility] LABIA [id number] [place] [id number] [place] NURSING PROGon 08-30-2023 NURSING PROG Normal [facility] NUTRITIONon 08-30-2023 NUTRITION Normal [facility] CBC panel Auto (Bld)on 08-29 Erythrocyte distribution width (RBC) [Ratio] 13.1 % Normal 11.5-15.0 [facility] Comment on above: Order Comment: Speci men Type: BLOOD SPECIMENOrdering Facility: [facility] Address: [address] [place] [address] Performed By: #### 5 8410-2 ####[facility] LABCLIA [id number] [place] [address] [place] Hematocrit (Bld) [Volume fraction] 39.4 % Normal 36.0-46.0 [facility] Comment on above: Order Comment: Speci men Type: BLOOD SPECIMENOrdering Facility: [facility] Address: [address] [place] [address] Performed By: #### 5 8410-2 ####[facility] LABCLIA [id number] [place] [address] [place] Hemoglobin (Bld) [Mass/Vol] 13.1 g/dL Normal 11.5-15.5 [facility] Comment on above: Order Comment: Speci men Type: BLOOD SPECIMENOrdering Facility: [facility] Address: [address] [place] [address] Performed By: #### 5 8410-2 ####[facility] LABIA [id number] [place] [address] [place] MCH (RBC) [Entitic mass] 30.0 pg Normal 26.0-34.0 [facility] Comment on above: Order Comment: Speci men Type: BLOOD SPECIMENOrdering Facility: [facility] Address: [address] [place] [address] Performed By: #### 5 8410-2 ####[facility] LABCLIA [id number] [place] [address] [place] MCHC (RBC) [Mass/Vol] 33.2 g/dL Normal 30.5-36.0 [facility] Comment on above: Order Comment: Speci men Type: BLOOD SPECIMENOrdering Facility: [facility] Address: [address] [place] [address] Performed By: #### 5 8410-2 ####[facility] LABIA [id number] [place] [address] [place] MCV (RBC) [Entitic vol] 90.4 fL Normal 80.0-100.0 [facility] Comment on above: Order Comment: Speci men Type: BLOOD SPECIMENOrdering Facility: [facility] Address: [address] [place] [address] Performed By: #### 5 8410-2 ####[facility] LABCLIA [id number] [place] [address] [place] Nucleated RBC (Bld) [#/Vol] 10*3/uL Normal <0.01 [facility] Comment on above: Order Comment: Speci men Type: BLOOD SPECIMENOrdering Facility: [facility] Address: [address] [place] [address] Performed By: #### 5 8410-2 ####[facility] LABCLIA [id number] [place] [address] [place] Platelet mean volume (Bld) [Entitic vol] 10.5 fL Normal 9.0-12.7 [facility] Comment on above: Order Comment: Speci men Type: BLOOD SPECIMENOrdering Facility: [facility] Address: [address] [place] [address] Performed By: #### 5 8410-2 ####[facility] LABCLIA [id number] [place] [address] [place] Platelets (Bld) [#/Vol] 192 10*3/uL Normal 150-400 [facility] Comment on above: Order Comment: Speci men Type: BLOOD SPECIMENOrdering Facility: [facility] Address: [address] [place] [address] Performed By: #### 5 8410-2 ####[facility] LABCLIA [id number] [place] [address] [place] RBC (Bld) [#/Vol] 4.36 10*6/uL Normal 3.90-5.20 [facility] Comment on above: Order Comment: Speci men Type: BLOOD SPECIMENOrdering Facility: [facility] Address: [address] [place] [address] Performed By: #### 5 8410-2 ####[facility] LABCLIA [id number] [place] [address] [place] WBC (Bld) [#/Vol] 8.00 10*3/uL Normal 3.70-11.00 [facility] Comment on above: Order Comment: Speci men Type: BLOOD SPECIMENOrdering Facility: [facility] Address: [address] [place] [address] Performed By: #### 5 8410-2 ####[facility] LABCLIA [id number] [place] [address] [place] CT FLANK WO IVCONon 08-29-19 CT FLANK WO IVCON Invalid Interpretation Code [facility] Comprehensive metabolic 2000 panelon 08-29-2023 Albumin [Mass/Vol] 3.9 g/dL Normal 3.9-4.9 [facility] Comment on above: Order Comment: Speci men Type: BLOOD SPECIMENOrdering Facility: [facility] Address: [address] [place] [address] Performed By: #### 2 4323-8, 58867-7 ####[facility] LABCLIA [id number] [place] [address] [place] ALP [Catalytic activity/Vol] 58 U/L Normal 34-123 [facility] Comment on above: Order Comment: Speci men Type: BLOOD SPECIMENOrdering Facility: [facility] Address: [address] [place] [address] Performed By: #### 2 4323-8, ####[facility] LABCLIA [id number] [place] [address] [place] ALT [Catalytic activity/Vol] 33 U/L Normal 7-38 [facility] Comment on above: Order Comment: Speci men Type: BLOOD SPECIMENOrdering Facility: [facility] Address: [address] [place] [address] Performed By: #### 2 432-8, ####[facility] LABCLIA [id number] [place] [address] [place] Anion gap [Moles/Vol] 10 mmol/L Normal 9-18 [facility] Comment on above: Order Comment: Speci men Type: BLOOD SPECIMENOrdering Facility: [facility] Address: [address] [place] [address] Performed By: #### 2 8, ####[facility] LABCLIA [id number] [place] [address] [place] AST [Catalytic activity/Vol] 25 U/L Normal 13-35 [facility] Comment on above: Order Comment: Speci men Type: BLOOD SPECIMENOrdering Facility: [facility] Address: [address] [place] [address] Performed By: #### 2 4323-03, ####[facility] LABCLIA [id number] [place] [address] [place] Bilirubin [Mass/Vol] 0.7 mg/dL Normal 0.2-1.3 [facility] Comment on above: Order Comment: Speci men Type: BLOOD SPECIMENOrdering Facility: [facility] Address: [address] [place] [address] Performed By: #### 2 4323-03, ####[facility] LABCLIA [id number] [place] [address] [place] Calcium [Mass/Vol] 9.0 mg/dL Normal 8.5-10.2 [facility] Comment on above: Order Comment: Speci men Type: BLOOD SPECIMENOrdering Facility: [facility] Address: [address] [place] [address] Performed By: #### 2 4323-03, ####[facility] LABCLIA [id number] [place] [address] [place] Chloride [Moles/Vol] 101 mmol/L Normal 97-105 [facility] Comment on above: Order Comment: Speci men Type: BLOOD SPECIMENOrdering Facility: [facility] Address: [address] [place] [address] Performed By: #### 2 4323-8, 47628-9 ####[facility] LABCLIA [id number] [place] [address] [place] CO2 [Moles/Vol] 25 mmol/L Normal 22-30 [facility] Comment on above: Order Comment: Speci men Type: BLOOD SPECIMENOrdering Facility: [facility] Address: [address] [place] [address] Performed By: #### 2 4323-8, 93686-4 ####[facility] LABCLIA [id number] [place] [address] [place] Creatinine [Mass/Vol] 0.87 mg/dL Normal 0.58-0.96 [facility] Comment on above: Order Comment: Speci men Type: BLOOD SPECIMENOrdering Facility: [facility] Address: [address] [place] [address] Performed By: #### 2 4323-8, 88795-2 ####[facility] LABIA [id number] [place] [address] [place] Creatinine and Glomerular filtration rate.predicted panel (S/P/Bld) 70 mL/min/1.73m??? Normal >=60 [facility] Comment on above: Order Comment: Speci men Type: BLOOD SPECIMENOrdering Facility: [facility] Address: [address] [place] [address] Result Comment: Shelley mated Glomerular Filtration Rate [...] actual GFR. Performed By: #### 2 4323-8, ####[facility] LABCLIA [id number] [address] [address] [place] Glucose [Mass/Vol] 85 mg/dL Normal 74-99 [facility] Comment on above: Order Comment: Speci men Type: BLOOD SPECIMENOrdering Facility: [facility] Address: [address] [place] [address] Result Comment: The [place] Diabetes Association (ADA) provides guidance for cutoff [...] Standards of Medical Care in Diabetes 2016, [place] [employer]. Diabetes Care. 2016.39(Suppl 1). Performed By: #### 2 43210-19, ####[facility] LABCLIA [id number] [address] [address] [place] Potassium [Moles/Vol] 4.7 mmol/L Normal 3.7-5.1 [facility] Comment on above: Order Comment: Speci men Type: BLOOD SPECIMENOrdering Facility: [facility] Address: [address] [place] [address] Performed By: #### 2 4323-8, ####[facility] LABCLIA [id number] [address] [address] [place] Protein [Mass/Vol] 6.3 g/dL Normal 6.3-8.0 [facility] Comment on above: Order Comment: Speci men Type: BLOOD SPECIMENOrdering Facility: [facility] Address: [address] [place] [address] Performed By: #### 2 4323-8, ####[facility] LABCLIA [id number] [place] [address] [place] Sodium [Moles/Vol] 136 mmol/L Normal 136-144 [facility] Comment on above: Order Comment: Speci men Type: BLOOD SPECIMENOrdering Facility: [facility] Address: [address] [place] [address] Performed By: #### 2 4323-8, ####[facility] LABCLIA [id number] [place] [address] [place] Urea nitrogen [Mass/Vol] 15 mg/dL Normal 7-21 [facility] Comment on above: Order Comment: Speci men Type: BLOOD SPECIMENOrdering Facility: [facility] Address: [address] [place] [address] Performed By: #### 2 4323-8, ####[facility] LABCLIA [id number] [place] [address] [place] DIGOXIN/LANOXINon 08-29-2023 Digoxin [Mass/Vol] 1.0 ng/mL Normal 0.6-1.2 [facility] Comment on above: Order Comment: Speci men Type: BLOOD SPECIMENOrdering Facility: [facility] Address: [address] [place] [address] Result Comment: Prov ided therapeutic concentrations are based on the 2008 ESC Guidelines for the Diagnosis and Treatment of Acute and Chronic Heart Failure.Reference ranges and high/low indicator flags are provided as general guidelines only. The treating physician must determine appropriate target levels/dosing based on the specific clinical situation. Performed By: #### D IG ####[facility] LABCLIA [id number] [place] [address] [place] Magnesium SerPl-mCncon 08-29 Magnesium [Mass/Vol] 2.2 mg/dL Normal 1.7-2.3 [facility] Comment on above: Order Comment: Speci men Type: BLOOD SPECIMENOrdering Facility: [facility] Address: [place] [address] Performed By: #### 2 4323-8, 08881-8 ####[facility] LABCLIA [id number] [place] [address] [place] NUTRITIONon 08-29-2023 NUTRITION Normal [facility] THYROID PEROXIDASE ANTIBODY BLOODon 08-29-2023 TPO Ab Qn [IU]/mL Normal <5.6 [facility] Comment on above: Order Comment: Speci men Type: BLOOD SPECIMENOrdering Facility: [facility] Address: [address] [place] [address] Result Comment: Thyr oid Peroxidase Antibody test is used as an aid in diagnosis of autoimmune thyroid disease. Clinical correlation is required. Performed By: #### M ICRO ####[facility] LABCLIA [id number] [place] [address] [place] ANES POSTPROC EVALon 024 ANES POSTPROC EVAL Normal [facility] ANES PRE-OPon 08-28-2023 ANES PRE-OP Normal [facility] CASE MANAGEMon 08-28-2023 CASE MANAGEM Normal [facility] CBC panel Auto (Bld)on 08-28 Erythrocyte distribution width (RBC) [Ratio] 13.1 % Normal 11.5-15.0 [facility] Comment on above: Order Comment: Speci men Type: BLOOD SPECIMENOrdering Facility: [facility] Address: [address] [place] [address] Performed By: #### 5 8410-2 ####[facility] LABCLIA [id number] [place] [id number] [place] Hematocrit (Bld) [Volume fraction] 37.8 % Normal 36.0-46.0 [facility] Comment on above: Order Comment: Speci men Type: BLOOD SPECIMENOrdering Facility: [facility] Address: [address] [place] [address] Performed By: #### 5 8410-2 ####[facility] LABIA [id number] [place] [address] [place] Hemoglobin (Bld) [Mass/Vol] 12.3 g/dL Normal 11.5-15.5 [facility] Comment on above: Order Comment: Speci men Type: BLOOD SPECIMENOrdering Facility: [facility] Address: [address] [place] [address] Performed By: #### 5 8410-2 ####[facility] [id number] [place] [address] [place] MCH (RBC) [Entitic mass] 29.5 pg Normal 26.0-34.0 [facility] Comment on above: Order Comment: Speci men Type: BLOOD SPECIMENOrdering Facility: [facility] Address: [address] [place] [address] Performed By: #### 5 8410-2 ####[facility] LABIA [id number] [place] [address] [place] MCHC (RBC) [Mass/Vol] 32.5 g/dL Normal 30.5-36.0 [facility] Comment on above: Order Comment: Speci men Type: BLOOD SPECIMENOrdering Facility: [facility] Address: [address] [place] [address] Performed By: #### 5 8410-2 ####[facility] [id number] [place] [address] [place] MCV (RBC) [Entitic vol] 90.6 fL Normal 80.0-100.0 [facility] Comment on above: Order Comment: Speci men Type: BLOOD SPECIMENOrdering Facility: [facility] Address: [address] [place] [address] Performed By: #### 5 8410-2 ####[facility] LABCLIA [id number] [place] [address] [place] Nucleated RBC (Bld) [#/Vol] 10*3/uL Normal <0.01 [facility] Comment on above: Order Comment: Speci men Type: BLOOD SPECIMENOrdering Facility: [facility] Address: [address] [place] [address] Performed By: #### 5 8410-2 ####[facility] LABCLIA [id number] [place] [address] [place] Platelet mean volume (Bld) [Entitic vol] 10.4 fL Normal 9.0-12.7 [facility] Comment on above: Order Comment: Speci men Type: BLOOD SPECIMENOrdering Facility: [facility] Address: [address] [place] [address] Performed By: #### 5 8410-2 ####[facility] LABIA [id number] [place] [address] [place] Platelets (Bld) [#/Vol] 180 10*3/uL Normal 150-400 [facility] Comment on above: Order Comment: Speci men Type: BLOOD SPECIMENOrdering Facility: [facility] Address: [address] [place] [address] Performed By: #### 5 8410-2 ####[facility] LABIA [id number] [place] [address] [place] RBC (Bld) [#/Vol] 4.17 10*6/uL Normal 3.90-5.20 [facility] Comment on above: Order Comment: Speci men Type: BLOOD SPECIMENOrdering Facility[facility] Address: [address] [place] [address] Performed By: #### 5 8410-2 ####[facility] LABCLIA [id number] [place] [address] [place] WBC (Bld) [#/Vol] 6.22 10*3/uL Normal 3.70-11.00 [facility] Comment on above: Order Comment: Speci men Type: BLOOD SPECIMENOrdering Facility: [facility] Address: [address] [place] [address] Performed By: #### 5 8410-2 ####[facility] LABCLIA [id number] [place] [address] [place] CNOVon 08-28-2023 CNOV Normal [facility] CONSULTon 08-28-2023 CONSULT Normal [facility] Comprehensive metabolic 2000 panelon 08-28-2023 Albumin [Mass/Vol] 3.5 g/dL Low 3.9-4.9 [facility] Comment on above: Order Comment: Speci men Type: BLOOD SPECIMENOrdering Facility: [facility] Address: [address] [place] [address] Performed By: #### 2 4323-8, 3023-7 ####[facility] LABCLIA [id number] [place] [address] [place] ALP [Catalytic activity/Vol] 52 U/L Normal 34-123 [facility] Comment on above: Order Comment: Speci men Type: BLOOD SPECIMENOrdering Facility: [facility] Address: [address] [place] [address] Performed By: #### 2 4323-8, 3024-7 ####[facility] LABCLIA [id number] [place] [address] [place] ALT [Catalytic activity/Vol] 31 U/L Normal 7-38 [facility] Comment on above: Order Comment: Speci men Type: BLOOD SPECIMENOrdering Facility: [facility] Address: [address] [place] [address] Performed By: #### 2 4323-8, 3024-7 ####[facility] LABCLIA [id number] [place] [address] [place] Anion gap [Moles/Vol] 10 mmol/L Normal 9-18 [facility] Comment on above: Order Comment: Speci men Type: BLOOD SPECIMENOrdering Facility: [facility] Address: [address] [place] [address] Performed By: #### 2 4323-8, 7 ####[facility] LABCLIA [id number] [place] [address] [place] AST [Catalytic activity/Vol] 26 U/L Normal 13-35 [facility] Comment on above: Order Comment: Speci men Type: BLOOD SPECIMENOrdering Facility: [facility] Address: [address] [place] [address] Performed By: #### 2 4323-8, 7 ####[facility] LABCLIA [id number] [place] [address] [place] Bilirubin [Mass/Vol] 0.5 mg/dL Normal 0.2-1.3 [facility] Comment on above: Order Comment: Speci men Type: BLOOD SPECIMENOrdering Facility: [facility] Address: [address] [place] [address] Performed By: #### 2 4323-8, 7 ####[facility] LABCLIA [id number] [place] [address] [place] Calcium [Mass/Vol] 9.5 mg/dL Normal 8.5-10.2 [facility] Comment on above: Order Comment: Speci men Type: BLOOD SPECIMENOrdering Facility: [facility] Address: [address] [place] [address] Performed By: #### 2 4323-8, 3023-7 ####[facility] LABCLIA [id number] [place] [address] [place] Chloride [Moles/Vol] 106 mmol/L High 97-105 [facility] Comment on above: Order Comment: Speci men Type: BLOOD SPECIMENOrdering Facility: [facility] Address: [address] [place] [address] Performed By: #### 2 4323-8, 3023-7 ####[facility] LABCLIA [id number] [place] [address] [place] CO2 [Moles/Vol] 24 mmol/L Normal 22-30 [facility] Comment on above: Order Comment: Speci men Type: BLOOD SPECIMENOrdering Facility: [facility] Address: [address] [place] [address] Performed By: #### 2 4323-8, 7 ####[facility] LABIA [id number] [place] [address] [place] Creatinine [Mass/Vol] 0.75 mg/dL Normal 0.58-0.96 [facility] Comment on above: Order Comment: Speci men Type: BLOOD SPECIMENOrdering Facility: [facility] Address: [address] [place] [address] Performed By: #### 2 4323-8, 7 ####[facility] LABIA [id number] [place] [address] [place] Creatinine and Glomerular filtration rate.predicted panel (S/P/Bld) 83 mL/min/1.73m??? Normal >=60 [facility] Comment on above: Order Comment: Speci men Type: BLOOD SPECIMENOrdering Facility: [facility] Address: [address] [place] [address] Result Comment: Shelley mated Glomerular Filtration Rate [...] GFR. Performed By: #### 2 4323-8, 302-7 ####[facility] LABIA [id number] [place] [address] [place] Glucose [Mass/Vol] 88 mg/dL Normal 74-99 [facility] Comment on above: Order Comment: Speci men Type: BLOOD SPECIMENOrdering Facility: [facility] Address: [address] [place] [address] Result Comment: The [place] [employer] (ADA) provides guidance for cutoff [...] Standards of Medical Care in Diabetes 2016, [place] [employer]. Diabetes Care. 2016.39(Suppl 1). Performed By: #### 2 4323-8, 7 ####[facility] LABCLIA [id number] [place] [address] [place] Potassium [Moles/Vol] 4.6 mmol/L Normal 3.7-5.1 [facility] Comment on above: Order Comment: Nichole becerra Type: BLOOD SPECIMENOrdering Facility: [facility] Address: [address] [place] [address] Performed By: #### 2 4323-8, 7 ####[facility] LABCLIA [id number] [place] [address] [place] Protein [Mass/Vol] 5.9 g/dL Low 6.3-8.0 [facility] Comment on above: Order Comment: Césari mariam Type: BLOOD SPECIMENOrdering Facility: [facility] Address: [address] [place] [address] Performed By: #### 2 4323-8, 7 ####[facility] LABCLIA [id number] [place] [address] [place] Sodium [Moles/Vol] 140 mmol/L Normal 136-144 [facility] Comment on above: Order Comment: Speci men Type: BLOOD SPECIMENOrdering Facility: [facility] Address: [place] [address] Performed By: #### 2 4323-8, 7 ####[facility] LABCLIA [id number] [place] [address] [place] Urea nitrogen [Mass/Vol] 13 mg/dL Normal 7-21 [facility] Comment on above: Order Comment: Speci men Type: BLOOD SPECIMENOrdering Facility: [facility] Address: [address] [place] [id number] Performed By: #### 2 4323-8, 3024-02 ####[facility] LABCLIA [id number] [place] [id number] [place] [id number] 08-28-2023 ECG01 Normal [facility] ECHO TRANSESOPHAGEALon 08-28 ECHO TRANSESOPHAGEAL Normal [facility] NURSING PROGon 08-28-2023 NURSING PROG Normal [facility] PT EDon 08-28-2023 PT ED Normal [facility] PT ED Normal [facility] T4 Free SerPl-mCncon 024 Free T4 [Mass/Vol] 1.1 ng/dL Normal 0.9-1.7 [facility] Comment on above: Order Comment: Speci men Type: BLOOD SPECIMENOrdering Facility: [facility] Address: [place] [address] Performed By: #### 2 4323-8, 7 ####[facility] LABCLIA [id number] [place] [id number] [place] CBC panel Auto (Bld)on 08-27 Erythrocyte distribution width (RBC) [Ratio] 12.8 % Normal 11.5-15.0 [facility] Comment on above: Order Comment: Speci men Type: BLOOD SPECIMENOrdering Facility: [facility] Address: [address] [place] [address] Performed By: #### 5 8410-2 ####[facility] LABCLIA [id number] [place] [address] [place] Hematocrit (Bld) [Volume fraction] 38.9 % Normal 36.0-46.0 [facility] Comment on above: Order Comment: Speci men Type: BLOOD SPECIMENOrdering Facility: [facility] Address: [address] [place] [address] Performed By: #### 5 8410-2 ####[facility] LABIA [id number] [place] [address] [place] Hemoglobin (Bld) [Mass/Vol] 12.7 g/dL Normal 11.5-15.5 [facility] Comment on above: Order Comment: Speci men Type: BLOOD SPECIMENOrdering Facility: [facility] Address: [address] [place] [address] Performed By: #### 5 8410-2 ####[facility] LABIA [id number] [place] [address] [place] MCH (RBC) [Entitic mass] 29.4 pg Normal 26.0-34.0 [facility] Comment on above: Order Comment: Speci men Type: BLOOD SPECIMENOrdering Facility: [facility] Address: [address] [place] [address] Performed By: #### 5 8410-2 ####[facility] LABCLIA [id number] [place] [address] [place] MCHC (RBC) [Mass/Vol] 32.6 g/dL Normal 30.5-36.0 [facility] Comment on above: Order Comment: Speci men Type: BLOOD SPECIMENOrdering Facility: [facility] Address: [address] [place] [address] Performed By: #### 5 8410-2 ####[facility] LABCLIA [id number] [place] [address] [place] MCV (RBC) [Entitic vol] 90.0 fL Normal 80.0-100.0 [facility] Comment on above: Order Comment: Speci men Type: BLOOD SPECIMENOrdering Facility: [facility] Address: [address] [place] [address] Performed By: #### 5 8410-2 ####[facility] LABIA [id number] [place] [address] [place] Nucleated RBC (Bld) [#/Vol] 10*3/uL Normal <0.01 [facility] Comment on above: Order Comment: Speci men Type: BLOOD SPECIMENOrdering Facility: [facility] Address: [address] [place] [address] Performed By: #### 5 8410-2 ####[facility] LABIA [id number] [place] [address] [place] Platelet mean volume (Bld) [Entitic vol] 10.4 fL Normal 9.0-12.7 [facility] Comment on above: Order Comment: Speci men Type: BLOOD SPECIMENOrdering Facility: [facility] Address: [address] [place] [address] Performed By: #### 5 8410-2 ####[facility] LABIA [id number] [place] [address] [place] Platelets (Bld) [#/Vol] 143 10*3/uL Low 150-400 [facility] Comment on above: Order Comment: Speci men Type: BLOOD SPECIMENOrdering Facility: [facility] Address: [address] [place] [address] Performed By: #### 5 8410-2 ####[facility] LABCLIA [id number] [place] [address] [place] RBC (Bld) [#/Vol] 4.32 10*6/uL Normal 3.90-5.20 [facility] Comment on above: Order Comment: Speci men Type: BLOOD SPECIMENOrdering Facility: [facility] Address: [address] [place] [address] Performed By: #### 5 8410-2 ####[facility] LABCLIA [id number] [place] [address] [place] WBC (Bld) [#/Vol] 5.61 10*3/uL Normal 3.70-11.00 [facility] Comment on above: Order Comment: Speci men Type: BLOOD SPECIMENOrdering Facility: [facility] Address: [address] [place] [address] Performed By: #### 5 8410-2 ####[facility] LABCLIA [id number] [place] [address] [place] Comprehensive metabolic 2000 panelon 08-27-2023 Albumin [Mass/Vol] 3.6 g/dL Low 3.9-4.9 [facility] Comment on above: Order Comment: Speci men Type: BLOOD SPECIMENOrdering Facility: [facility] Address: [address] [place] [address] Performed By: #### 2 4323-8, 3016-3 ####[facility] LABCLIA [id number] [place] [address] [place] ALP [Catalytic activity/Vol] 59 U/L Normal 34-123 [facility] Comment on above: Order Comment: Speci men Type: BLOOD SPECIMENOrdering Facility: [facility] Address: [address] [place] [address] Performed By: #### 2 4323-8, 3016-3 ####[facility] LABCLIA [id number] [place] [address] [place] ALT [Catalytic activity/Vol] 29 U/L Normal 7-38 [facility] Comment on above: Order Comment: Speci men Type: BLOOD SPECIMENOrdering Facility: [facility] Address: [address] [place] [address] Performed By: #### 2 4323-8, 6-3 ####[facility] LABCLIA [id number] [facility] [place] [address] [place] Anion gap [Moles/Vol] 8 mmol/L Low 9-18 [facility] Comment on above: Order Comment: Speci men Type: BLOOD SPECIMENOrdering Facility: [facility] Address: [address] [place] [address] Performed By: #### 2 4323-8, 3015-3 ####[facility] LABCLIA [id number] [facility] [place] [address] [place] AST [Catalytic activity/Vol] 27 U/L Normal 13-35 [facility] Comment on above: Order Comment: Speci men Type: BLOOD SPECIMENOrdering Facility: [facility] Address: [address] [place] [address] Performed By: #### 2 4323-8, 3 ####[facility] LABCLIA [id number] [place] [address] [place] Bilirubin [Mass/Vol] 0.5 mg/dL Normal 0.2-1.3 [facility] Comment on above: Order Comment: Speci men Type: BLOOD SPECIMENOrdering Facility: [facility] Address: [address] [place] [address] Performed By: #### 2 4323-8, 3 ####[facility] LABCLIA [id number] [facility] [place] [address] [place] Calcium [Mass/Vol] 9.1 mg/dL Normal 8.5-10.2 [facility] Comment on above: Order Comment: Speci men Type: BLOOD SPECIMENOrdering Facility: [facility] Address: [address] [place] [address] Performed By: #### 2 4323-8, 6-3 ####[facility] LABCLIA [id number] [place] [address] [place] Chloride [Moles/Vol] 105 mmol/L Normal 97-105 [facility] Comment on above: Order Comment: Speci men Type: BLOOD SPECIMENOrdering Facility: [facility] Address: [address] [place] [address] Performed By: #### 2 4323-8, 3016-3 ####[facility] LABCLIA [id number] [place] [address] [place] CO2 [Moles/Vol] 27 mmol/L Normal 22-30 [facility] Comment on above: Order Comment: Speci men Type: BLOOD SPECIMENOrdering Facility: [facility] Address: [address] [place] [address] Performed By: #### 2 4323-8, 3016-3 ####[facility] LABCLIA [id number] [place] [address] [place] Creatinine [Mass/Vol] 0.72 mg/dL Normal 0.58-0.96 [facility] Comment on above: Order Comment: Speci men Type: BLOOD SPECIMENOrdering Facility: [facility] Address: [address] [place] [address] Performed By: #### 2 4323-8, 3016-3 ####[facility] LABIA [id number] [address] STATES OF [facility] Creatinine and Glomerular filtration rate.predicted panel (S/P/Bld) 87 mL/min/1.73m??? Normal >=60 [facility] Comment on above: Order Comment: Speci men Type: BLOOD SPECIMENOrdering Facility: [facility] Address: [address] [place] [address] Result Comment: Shelley mated Glomerular Filtration Rate [...] GFR. Performed By: #### 2 4323-8, 6-3 ####[facility] LABCLIA [id number] [place] [address] [place] Glucose [Mass/Vol] 92 mg/dL Normal 74-99 [facility] Comment on above: Order Comment: Speci men Type: BLOOD SPECIMENOrdering Facility: [facility] Address: [address] [place] [address] Result Comment: The [place] Diabetes Association (ADA) provides guidance for cutoff [...] Standards of Medical Care in Diabetes 2016, [place] [employer]. Diabetes Care. 2016.39(Suppl 1). Performed By: #### 2 4323-8, 3015-3 ####[facility] LABCLIA [id number] [place] [address] [place] Potassium [Moles/Vol] 4.7 mmol/L Normal 3.7-5.1 [facility] Comment on above: Order Comment: Césari men Type: BLOOD SPECIMENOrdering Facility: [facility] Address: [address] [place] [address] Performed By: #### 2 4323-8, 6-3 ####[facility] LABIA [id number] [place] [address] [place] Protein [Mass/Vol] 5.8 g/dL Low 6.3-8.0 [facility] Comment on above: Order Comment: Nichole men Type: BLOOD SPECIMENOrdering Facility: [facility] Address: [address] [place] [address] Performed By: #### 2 4323-8, 3016-3 ####[facility] LABCLIA [id number] [place] [address] [place] Sodium [Moles/Vol] 140 mmol/L Normal 136-144 [facility] Comment on above: Order Comment: Speci men Type: BLOOD SPECIMENOrdering Facility: [facility] Address: [address] [place] [address] Performed By: #### 2 4323-8, 6-3 ####[facility] LABCLIA [id number] [place] [address] [place] Urea nitrogen [Mass/Vol] 15 mg/dL Normal 7-21 [facility] Comment on above: Order Comment: Speci men Type: BLOOD SPECIMENOrdering Facility: [facility] Address: [address] [place] [address] Performed By: #### 2 4323-8, 6-3 ####[facility] LABIA [id number] [place] [address] [place] TSH SerPl-aCncon 08-27-2023 TSH Qn 9.850 m[IU]/L High 0.270-4.200 [facility] Comment on above: Order Comment: Speci men Type: BLOOD SPECIMENOrdering Facility: [facility] Address: [address] [place] [address] Performed By: #### 2 4323-8, 6-3 ####[facility] LABCLIA [id number] [place] [address] [place] Bacteria Ur Culton 4 Bacteria identified Cx Nom (U) Abnormal [facility] Comment on above: Performed By: #### 6 30-4 ####[facility] LABCLIA [id number] [place] [address] [place] CBC panel Auto (Bld)on 08-26 Erythrocyte distribution width (RBC) [Ratio] 13.1 % Normal 11.5-15.0 [facility] Comment on above: Order Comment: Speci men Type: BLOOD SPECIMENOrdering Facility: [facility] Address: [address] [place] [address] Performed By: #### 5 8410-2 ####[facility] LABCLIA [id number] [place] [address] [place] Hematocrit (Bld) [Volume fraction] 38.5 % Normal 36.0-46.0 [facility] Comment on above: Order Comment: Speci men Type: BLOOD SPECIMENOrdering Facility: [facility] Address: [address] [place] [address] Performed By: #### 5 8410-2 ####[facility] LABCLIA [id number] [place] [address] [place] Hemoglobin (Bld) [Mass/Vol] 12.8 g/dL Normal 11.5-15.5 [facility] Comment on above: Order Comment: Speci men Type: BLOOD SPECIMENOrdering Facility: [facility] Address: [address] [place] [address] Performed By: #### 5 8410-2 ####[facility] LABCLIA [id number] [place] [address] [place] MCH (RBC) [Entitic mass] 30.0 pg Normal 26.0-34.0 [facility] Comment on above: Order Comment: Speci men Type: BLOOD SPECIMENOrdering Facility: [facility] Address: [address] [place] [address] Performed By: #### 5 8410-2 ####[facility] LABCLIA [id number] [place] [address] [place] MCHC (RBC) [Mass/Vol] 33.2 g/dL Normal 30.5-36.0 [facility] Comment on above: Order Comment: Speci men Type: BLOOD SPECIMENOrdering Facility: [facility] Address: [address] [place] [address] Performed By: #### 5 8410-2 ####[facility] LABCLIA [id number] [place] [address] [place] MCV (RBC) [Entitic vol] 90.4 fL Normal 80.0-100.0 [facility] Comment on above: Order Comment: Speci men Type: BLOOD SPECIMENOrdering Facility: [facility] Address: [address] [place] [address] Performed By: #### 5 8410-2 ####[facility] LABIA [id number] [place] [address] [place] Nucleated RBC (Bld) [#/Vol] 10*3/uL Normal <0.01 [facility] Comment on above: Order Comment: Speci men Type: BLOOD SPECIMENOrdering Facility: [facility] Address: [address] [place] [address] Performed By: #### 5 8410-2 ####[facility] LABIA [id number] [place] [address] [place] Platelet mean volume (Bld) [Entitic vol] 10.6 fL Normal 9.0-12.7 [facility] Comment on above: Order Comment: Speci men Type: BLOOD SPECIMENOrdering Facility: [facility] Address: [address] [place] [address] Performed By: #### 5 8410-2 ####[facility] LABCLIA [id number] [place] [address] [place] Platelets (Bld) [#/Vol] 168 10*3/uL Normal 150-400 [facility] Comment on above: Order Comment: Speci men Type: BLOOD SPECIMENOrdering Facility: [facility] Address: [address] [place] [address] Performed By: #### 5 8410-2 ####[facility] LABCLIA [id number] [place] [address] [place] RBC (Bld) [#/Vol] 4.26 10*6/uL Normal 3.90-5.20 [facility] Comment on above: Order Comment: Speci men Type: BLOOD SPECIMENOrdering Facility: [facility] Address: [address] [place] [address] Performed By: #### 5 8410-2 ####[facility] LABIA [id number] [place] [address] [place] WBC (Bld) [#/Vol] 7.27 10*3/uL Normal 3.70-11.00 [facility] Comment on above: Order Comment: Speci men Type: BLOOD SPECIMENOrdering Facility: [facility] Address: [address] [place] [address] Performed By: #### 5 8410-2 ####[facility] LABIA [id number] [place] [address] [place] CONSULTon 08-26-2023 CONSULT Normal [facility] Comprehensive metabolic 2000 panelon 08-26-2023 Albumin [Mass/Vol] 3.5 g/dL Low 3.9-4.9 [facility] Comment on above: Order Comment: Speci men Type: BLOOD SPECIMENOrdering Facility: [facility] Address: [address] [place] [address] Performed By: #### 2 4323-8 ####[facility] LABIA [id number] [place] [address] [place] ALP [Catalytic activity/Vol] 60 U/L Normal 34-123 [facility] Comment on above: Order Comment: Speci men Type: BLOOD SPECIMENOrdering Facility: [facility] Address: [address] [place] [address] Performed By: #### 2 4323-8 ####[facility] LABIA [id number] [id number] [address] [place] ALT [Catalytic activity/Vol] 25 U/L Normal 7-38 [facility] Comment on above: Order Comment: Speci men Type: BLOOD SPECIMENOrdering Facility: [facility] Address: [address] [place] [address] Performed By: #### 2 4323-8 ####[facility] LABCLIA [id number] [place] [address] [place] Anion gap [Moles/Vol] 10 mmol/L Normal 9-18 [facility] Comment on above: Order Comment: Speci men Type: BLOOD SPECIMENOrdering Facility: [facility] Address: [address] [place] [address] Performed By: #### 2 4323-8 ####[facility] LABCLIA [id number] [place] [address] [place] AST [Catalytic activity/Vol] 22 U/L Normal 13-35 [facility] Comment on above: Order Comment: Speci men Type: BLOOD SPECIMENOrdering Facility: [facility] Address: [address] [place] [address] Performed By: #### 2 4323-8 ####[facility] LABCLIA [id number] [place] [address] [place] Bilirubin [Mass/Vol] 0.4 mg/dL Normal 0.2-1.3 [facility] Comment on above: Order Comment: Speci men Type: BLOOD SPECIMENOrdering Facility: [facility] Address: [address] [place] [address] Performed By: #### 2 4323-8 ####[facility] LABCLIA [id number] [place] [address] [place] Calcium [Mass/Vol] 8.9 mg/dL Normal 8.5-10.2 [facility] Comment on above: Order Comment: Speci men Type: BLOOD SPECIMENOrdering Facility: [facility] Address: [address] [place] [address] Performed By: #### 2 4323-8 ####[facility] LABCLIA [id number] [place] [address] [place] Chloride [Moles/Vol] 104 mmol/L Normal 97-105 [facility] Comment on above: Order Comment: Speci men Type: BLOOD SPECIMENOrdering Facility: [facility] Address: [address] [place] [address] Performed By: #### 2 4323-8 ####[facility] LABCLIA [id number] [place] [address] [place] CO2 [Moles/Vol] 26 mmol/L Normal 22-30 [facility] Comment on above: Order Comment: Speci men Type: BLOOD SPECIMENOrdering Facility: [facility] Address: [address] [place] [address] Performed By: #### 2 4323-8 ####[facility] LABCLIA [id number] [place] [address] [place] Creatinine [Mass/Vol] 0.84 mg/dL Normal 0.58-0.96 [facility] Comment on above: Order Comment: Speci men Type: BLOOD SPECIMENOrdering Facility: [facility] Address: [address] [place] [address] Performed By: #### 2 4323-8 ####[facility] LABCLIA [id number] [place] [address] [place] Creatinine and Glomerular filtration rate.predicted panel (S/P/Bld) 73 mL/min/1.73m??? Normal >=60 [facility] Comment on above: Order Comment: Speci men Type: BLOOD SPECIMENOrdering Facility: [facility] Address: [address] [place] [address] Result Comment: Shelley mated Glomerular Filtration Rate [...] actual GFR. Performed By: #### 2 4323-8 ####[facility] LABCLIA [id number] [place] [address] [place] Glucose [Mass/Vol] 93 mg/dL Normal 74-99 [facility] Comment on above: Order Comment: Speci men Type: BLOOD SPECIMENOrdering Facility: [facility] Address: [address] [place] [address] Result Comment: The [place] [employer] (ADA) provides guidance for cutoff [...] Standards of Medical Care in Diabetes 2016, [place] [employer]. Diabetes Care. 2016.39(Suppl 1). Performed By: #### 2 4323-8 ####[facility] LABCLIA [id number] [place] [id number] [place] Potassium [Moles/Vol] 4.4 mmol/L Normal 3.7-5.1 [facility] Comment on above: Order Comment: Césari men Type: BLOOD SPECIMENOrdering Facility: [facility] Address: [address] [place] [address] Performed By: #### 2 4323-8 ####[facility] LABIA [id number] [place] [id number] [place] Protein [Mass/Vol] 5.7 g/dL Low 6.3-8.0 [facility] Comment on above: Order Comment: Césari men Type: BLOOD SPECIMENOrdering Facility: [facility] Address: [address] [place] [address] Performed By: #### 2 4323-8 ####[facility] LABCLIA [id number] [place] [address] [place] Sodium [Moles/Vol] 140 mmol/L Normal 136-144 [facility] Comment on above: Order Comment: Speci men Type: BLOOD SPECIMENOrdering Facility: [facility] Address: [address] [place] [address] Performed By: #### 2 4323-8 ####[facility] LABCLIA [id number] [place] [address] [place] Urea nitrogen [Mass/Vol] 19 mg/dL Normal 7-21 [facility] Comment on above: Order Comment: Speci men Type: BLOOD SPECIMENOrdering Facility: [facility] Address: [address] [place] [address] Performed By: #### 2 4323-8 ####[facility] LABCLIA [id number] [place] [address] [place] CASE MGT INIT ASSESon 2023 CASE MGT INIT ASSES Normal [facility] CBC panel Auto (Bld)on 08-25 Erythrocyte distribution width (RBC) [Ratio] 12.9 % Normal 11.5-15.0 [facility] Comment on above: Order Comment: Speci men Type: BLOOD SPECIMENOrdering Facility: [facility] Address: [address] [place] [address] Performed By: #### 5 8410-2 ####[facility] LABCLIA [id number] [place] [address] [place] Hematocrit (Bld) [Volume fraction] 37.8 % Normal 36.0-46.0 [facility] Comment on above: Order Comment: Speci men Type: BLOOD SPECIMENOrdering Facility: [facility] Address: [address] [place] [address] Performed By: #### 5 8410-2 ####[facility] LABCLIA [id number] [place] [address] [place] Hemoglobin (Bld) [Mass/Vol] 12.8 g/dL Normal 11.5-15.5 [facility] Comment on above: Order Comment: Speci men Type: BLOOD SPECIMENOrdering Facility: [facility] Address: [address] [place] [address] Performed By: #### 5 8410-2 ####[facility] LABCLIA [id number] [place] [address] [place] MCH (RBC) [Entitic mass] 29.9 pg Normal 26.0-34.0 [facility] Comment on above: Order Comment: Speci men Type: BLOOD SPECIMENOrdering Facility: [facility] Address: [address] [place] [address] Performed By: #### 5 8410-2 ####[facility] LABIA [id number] [place] [address] [place] MCHC (RBC) [Mass/Vol] 33.9 g/dL Normal 30.5-36.0 [facility] Comment on above: Order Comment: Speci men Type: BLOOD SPECIMENOrdering Facility: [facility] Address: [address] [place] [address] Performed By: #### 5 8410-2 ####[facility] LABIA [id number] [place] [address] [place] MCV (RBC) [Entitic vol] 88.3 fL Normal 80.0-100.0 [facility] Comment on above: Order Comment: Speci men Type: BLOOD SPECIMENOrdering Facility: [facility] Address: [address] [place] [address] Performed By: #### 5 8410-2 ####[facility] LABIA [id number] [place] [address] [place] Nucleated RBC (Bld) [#/Vol] 10*3/uL Normal <0.01 [facility] Comment on above: Order Comment: Speci men Type: BLOOD SPECIMENOrdering Facility: [facility] Address: [address] [place] [address] Performed By: #### 5 8410-2 ####[facility] LABCLIA [id number] [place] [address] [place] Platelet mean volume (Bld) [Entitic vol] 10.1 fL Normal 9.0-12.7 [facility] Comment on above: Order Comment: Speci men Type: BLOOD SPECIMENOrdering Facility: [facility] Address: [address] [place] [address] Performed By: #### 5 8410-2 ####[facility] LABCLIA [id number] [place] [address] [place] Platelets (Bld) [#/Vol] 173 10*3/uL Normal 150-400 [facility] Comment on above: Order Comment: Speci men Type: BLOOD SPECIMENOrdering Facility: [facility] Address: [address] [place] [address] Performed By: #### 5 8410-2 ####[facility] LABCLIA [id number] [place] [address] [place] RBC (Bld) [#/Vol] 4.28 10*6/uL Normal 3.90-5.20 [facility] Comment on above: Order Comment: Speci men Type: BLOOD SPECIMENOrdering Facility: [facility] Address: [address] [place] [address] Performed By: #### 5 8410-2 ####[facility] LABCLIA [id number] [place] [address] [place] WBC (Bld) [#/Vol] 6.38 10*3/uL Normal 3.70-11.00 [facility] Comment on above: Order Comment: Speci men Type: BLOOD SPECIMENOrdering Facility: [facility] Address: [address] [place] [address] Performed By: #### 5 8410-2 ####[facility] LABCLIA [id number] [address] [address] [place] Comprehensive metabolic 2000 panelon 08-25-2023 Albumin [Mass/Vol] 3.4 g/dL Low 3.9-4.9 [facility] Comment on above: Order Comment: Speci men Type: BLOOD SPECIMENOrdering Facility: [facility] Address: [address] [place] [address] Performed By: #### 1 9123-9, 39837-3 ####[facility] LABCLIA [id number] [place] [address] [place] ALP [Catalytic activity/Vol] 48 U/L Normal 34-123 [facility] Comment on above: Order Comment: Speci men Type: BLOOD SPECIMENOrdering Facility: [facility] Address: [address] [place] [address] Performed By: #### 1 9123-9, 76357-2 ####[facility] LABCLIA [id number] [place] [address] [place] ALT [Catalytic activity/Vol] 26 U/L Normal 7-38 [facility] Comment on above: Order Comment: Speci men Type: BLOOD SPECIMENOrdering Facility: [facility] Address: [address] [place] [address] Performed By: #### 1 9123-9, 06293-1 ####[facility] LABCLIA [id number] [place] [id number] [place] Anion gap [Moles/Vol] 10 mmol/L Normal 9-18 [facility] Comment on above: Order Comment: Speci men Type: BLOOD SPECIMENOrdering Facility: [facility] Address: [address] [place] [address] Performed By: #### 1 239, ####[facility] LABCLIA [id number] [address] [address] [place] AST [Catalytic activity/Vol] 23 U/L Normal 13-35 [facility] Comment on above: Order Comment: Speci men Type: BLOOD SPECIMENOrdering Facility: [facility] Address: [address] [place] [address] Performed By: #### 1 239, ####[facility] LABCLIA [id number] [place] [address] [place] Bilirubin [Mass/Vol] 0.9 mg/dL Normal 0.2-1.3 [facility] Comment on above: Order Comment: Speci men Type: BLOOD SPECIMENOrdering Facility: [facility] Address: [address] [place] [address] Performed By: #### 1 9, ####[facility] LABIA [id number] [place] [address] [place] Calcium [Mass/Vol] 9.0 mg/dL Normal 8.5-10.2 [facility] Comment on above: Order Comment: Speci men Type: BLOOD SPECIMENOrdering Facility: [facility] Address: [address] [place] [address] Performed By: #### 1 239, ####[facility] LABCLIA [id number] [place] [address] [place] Chloride [Moles/Vol] 97 mmol/L Normal 97-105 [facility] Comment on above: Order Comment: Speci men Type: BLOOD SPECIMENOrdering Facility: [facility] Address: [address] [place] [address] Performed By: #### 1 23-9, ####[facility] LABCLIA [id number] [id number] [address] [place] CO2 [Moles/Vol] 29 mmol/L Normal 22-30 [facility] Comment on above: Order Comment: Speci men Type: BLOOD SPECIMENOrdering Facility: [facility] Address: [address] [place] [address] Performed By: #### 1 9123-9, ####[facility] LABCLIA [id number] [place] [address] [place] Creatinine [Mass/Vol] 1.02 mg/dL High 0.58-0.96 [facility] Comment on above: Order Comment: Speci men Type: BLOOD SPECIMENOrdering Facility: [facility] Address: [address] [place] [address] Performed By: #### 1 239, ####[facility] LABCLIA [id number] [address] [place] Creatinine and Glomerular filtration rate.predicted panel (S/P/Bld) 57 mL/min/1.73m??? Low >=60 [facility] Comment on above: Order Comment: Speci men Type: BLOOD SPECIMENOrdering Facility: [facility] Address: [address] [place] [address] Result Comment: Shelley mated Glomerular Filtration Rate [...] actual GFR. Performed By: #### 1 23-9, ####[facility] LABCLIA [id number] [place] [address] [place] Glucose [Mass/Vol] 84 mg/dL Normal 74-99 [facility] Comment on above: Order Comment: Speci men Type: BLOOD SPECIMENOrdering Facility: [facility] Address: [address], [place] [address] Result Comment: The [place] Diabetes Association (ADA) provides guidance for cutoff [...] Standards of Medical Care in Diabetes 2016, [place] [employer]. Diabetes Care. 2016.39(Suppl 1). Performed By: #### 1 9123-9, ####[facility] LABCLIA [id number] [place] [address] [place] Potassium [Moles/Vol] 3.4 mmol/L Low 3.7-5.1 [facility] Comment on above: Order Comment: Speci men Type: BLOOD SPECIMENOrdering Facility: [facility] Address: [address] [place] [address] Performed By: #### 1 9123-9, ####[facility] LABIA [id number] [place] [address] [place] Protein [Mass/Vol] 5.7 g/dL Low 6.3-8.0 [facility] Comment on above: Order Comment: Speci men Type: BLOOD SPECIMENOrdering Facility: [facility] Address: [address] [place] [address] Performed By: #### 1 9123-9, ####[facility] LABIA [id number] [place] [address] [place] Sodium [Moles/Vol] 136 mmol/L Normal 136-144 [facility] Comment on above: Order Comment: Speci men Type: BLOOD SPECIMENOrdering Facility: [facility] Address: [address] [place] [address] Performed By: #### 1 9123-9, 04772-5 ####[facility] LABCLIA [id number] [place] [id number] [place] Urea nitrogen [Mass/Vol] 22 mg/dL High 7-21 [facility] Comment on above: Order Comment: Speci men Type: BLOOD SPECIMENOrdering Facility: [facility] Address: [address] [place], [place] [address] Performed By: #### 1 9123-9, 68137-4 ####[facility] LABCLIA [id number] [place] [id number] [place] Magnesium SerPl-mCncon 08-25 Magnesium [Mass/Vol] 2.2 mg/dL Normal 1.7-2.3 [facility] Comment on above: Order Comment: Speci men Type: BLOOD SPECIMENOrdering Facility: [facility] Address: [address] [place] [address] Performed By: #### 1 9123-9, 70077-5 ####[facility] [id number] [place] [address] [place] POTASSIUM BLDon 08-25-2023 Potassium [Moles/Vol] 4.3 mmol/L Normal 3.7-5.1 [facility] Comment on above: Order Comment: Speci men Type: BLOOD SPECIMENOrdering Facility: [facility] Address: [address] [place], [place] [address] Performed By: #### K 1 ####[facility] LABIA [id number] [place] [id number] [place] US KIDNEY/BLADDERon 08-25-19 US KIDNEY/BLADDER Normal [facility] CBC W Auto Differential pane l (Bld)on 08-24-2023 Basophils (Bld) [#/Vol] 0.03 10*3/uL Normal <0.11 [facility] Comment on above: Order Comment: Speci men Type: BLOOD SPECIMENOrdering Facility: [facility] Address: [address] [place] [address] Performed By: #### 5 7021-8 ####[facility] LABCLIA [id number] [place] [address] [place] Basophils/100 WBC (Bld) 0.4 % Normal [facility] Comment on above: Order Comment: Speci men Type: BLOOD SPECIMENOrdering Facility: [facility] Address: [address] [place] [address] Performed By: #### 5 7021-8 ####[facility] LABCLIA [id number] [place] [address] [place] Differential cell count method Nom (Bld) Auto Normal [facility] Comment on above: Order Comment: Speci men Type: BLOOD SPECIMENOrdering Facility: [facility] Address: [address] [place] [address] Performed By: #### 5 7021-8 ####[facility] LABCLIA [id number] [place] [address] [place] Eosinophils (Bld) [#/Vol] 0.03 10*3/uL Normal <0.46 [facility] Comment on above: Order Comment: Speci men Type: BLOOD SPECIMENOrdering Facility: [facility] Address: [address] [place] [address] Performed By: #### 5 7021-8 ####[facility] LABCLIA [id number] [place] [address] [place] Eosinophils/100 WBC (Bld) 0.4 % Normal [facility] Comment on above: Order Comment: Speci men Type: BLOOD SPECIMENOrdering Facility: [facility] Address: [address] [place] [address] Performed By: #### 5 7021-8 ####[facility] LABCLIA [id number] [place] [address] [place] Erythrocyte distribution width (RBC) [Ratio] 12.7 % Normal 11.5-15.0 [facility] Comment on above: Order Comment: Speci men Type: BLOOD SPECIMENOrdering Facility: [facility] Address: [address] [place] [address] Performed By: #### 5 7021-8 ####[facility] LABCLIA [id number] [place] [address] [place] Hematocrit (Bld) [Volume fraction] 40.4 % Normal 36.0-46.0 [facility] Comment on above: Order Comment: Speci men Type: BLOOD SPECIMENOrdering Facility: [facility] Address: [address] [place] [address] Performed By: #### 5 7021-8 ####[facility] LABIA [id number] [place] [address] [place] Hemoglobin (Bld) [Mass/Vol] 13.2 g/dL Normal 11.5-15.5 [facility] Comment on above: Order Comment: Speci men Type: BLOOD SPECIMENOrdering Facility: [facility] Address: [address] [place] [address] Performed By: #### 5 7021-8 ####[facility] LABIA [id number] [place] [address] [place] Immature granulocytes (Bld) [#/Vol] 10*3/uL Normal <0.10 [facility] Comment on above: Order Comment: Speci men Type: BLOOD SPECIMENOrdering Facility: [facility] Address: [address] [place] [address] Performed By: #### 5 7021-8 ####[facility] LABIA [id number] [place] [address] [place] Immature granulocytes/100 WBC (Bld) 0.3 % Normal [facility] Comment on above: Order Comment: Speci men Type: BLOOD SPECIMENOrdering Facility: [facility] Address: [address] [place] [address] Performed By: #### 5 7021-8 ####[facility] LABCLIA [id number] [place] [address] [place] Lymphocytes (Bld) [#/Vol] 1.73 10*3/uL Normal 1.00-4.00 [facility] Comment on above: Order Comment: Speci men Type: BLOOD SPECIMENOrdering Facility: [facility] Address: [address] [place] [address] Performed By: #### 5 7021-8 ####[facility] LABCLIA [id number] [place] [address] [place] Lymphocytes/100 WBC (Bld) 23.4 % Normal [facility] Comment on above: Order Comment: Speci men Type: BLOOD SPECIMENOrdering Facility: [facility] Address: [address] [place] [address] Performed By: #### 5 7021-8 ####[facility] LABIA [id number] [place] [address] [place] MCH (RBC) [Entitic mass] 29.3 pg Normal 26.0-34.0 [facility] Comment on above: Order Comment: Speci men Type: BLOOD SPECIMENOrdering Facility: [facility] Address: [address] [place] [address] Performed By: #### 5 7021-8 ####[facility] LABCLIA [id number] [place] [address] [place] MCHC (RBC) [Mass/Vol] 32.7 g/dL Normal 30.5-36.0 [facility] Comment on above: Order Comment: Speci men Type: BLOOD SPECIMENOrdering Facility: [facility] Address: [address] [place] [address] Performed By: #### 5 7021-8 ####[facility] LABCLIA [id number] [place] [address] [place] MCV (RBC) [Entitic vol] 89.8 fL Normal 80.0-100.0 [facility] Comment on above: Order Comment: Speci men Type: BLOOD SPECIMENOrdering Facility: [facility] Address: [address] [place] [address] Performed By: #### 5 7021-8 ####[facility] LABCLIA [id number] [place] [address] [place] Monocytes (Bld) [#/Vol] 0.77 10*3/uL Normal <0.87 [facility] Comment on above: Order Comment: Speci men Type: BLOOD SPECIMENOrdering Facility: [facility] Address: [address] [place] [address] Performed By: #### 5 7021-8 ####[facility] LABCLIA [id number] [place] [address] [place] Monocytes/100 WBC (Bld) 10.4 % Normal [facility] Comment on above: Order Comment: Speci men Type: BLOOD SPECIMENOrdering Facility: [facility] Address: [address] [place] [address] Performed By: #### 5 7021-8 ####[facility] LABCLIA [id number] [place] [address] [place] Neutrophils (Bld) [#/Vol] 4.82 10*3/uL Normal 1.45-7.50 [facility] Comment on above: Order Comment: Speci men Type: BLOOD SPECIMENOrdering Facility: [facility] Address: [address] [place] [address] Performed By: #### 5 7021-8 ####[facility] LABCLIA [id number] [place] [address] [place] Neutrophils/100 WBC (Bld) 65.1 % Normal [facility] Comment on above: Order Comment: Speci men Type: BLOOD SPECIMENOrdering Facility: [facility] Address: [address] [place] [address] Performed By: #### 5 7021-8 ####[facility] LABCLIA [id number] [place] [address] [place] Nucleated RBC (Bld) [#/Vol] 10*3/uL Normal <0.01 [facility] Comment on above: Order Comment: Speci men Type: BLOOD SPECIMENOrdering Facility: [facility] Address: [address] [place] [address] Performed By: #### 5 7021-8 ####[facility] LABCLIA [id number] [place] [address] [place] Nucleated RBC/100 WBC (Bld) [Ratio] 0.0 /100 WBC Normal [facility] Comment on above: Order Comment: Speci men Type: BLOOD SPECIMENOrdering Facility: [facility] Address: [address] [place] [address] Performed By: #### 5 7021-8 ####[facility] LABIA [id number] [place] [address] [place] Platelet mean volume (Bld) [Entitic vol] 10.4 fL Normal 9.0-12.7 [facility] Comment on above: Order Comment: Speci men Type: BLOOD SPECIMENOrdering Facility: [facility] Address: [address] [place] [address] Performed By: #### 5 7021-8 ####[facility] LABIA [id number] [place] [address] [place] Platelets (Bld) [#/Vol] 201 10*3/uL Normal 150-400 [facility] Comment on above: Order Comment: Speci men Type: BLOOD SPECIMENOrdering Facility: [facility] Address: [address] [place] [address] Performed By: #### 5 7021-8 ####[facility] LABIA [id number] [place] [address] [place] RBC (Bld) [#/Vol] 4.50 10*6/uL Normal 3.90-5.20 [facility] Comment on above: Order Comment: Speci men Type: BLOOD SPECIMENOrdering Facility: [facility] Address: [address] [place] [address] Performed By: #### 5 7021-8 ####[facility] LABCLIA [id number] [place] [address] [place] WBC (Bld) [#/Vol] 7.40 10*3/uL Normal 3.70-11.00 [facility] Comment on above: Order Comment: Speci men Type: BLOOD SPECIMENOrdering Facility: [facility] Address: [address] [place] [address] Performed By: #### 5 7021-8 ####[facility] LABCLIA [id number] [place] [address] [place] CNPNon 08-24-2023 CNPN Normal [facility] Comprehensive metabolic 2000 panelon 08-24-2023 Albumin [Mass/Vol] 3.8 g/dL Low 3.9-4.9 [facility] Comment on above: Order Comment: Speci men Type: BLOOD SPECIMENOrdering Facility: [facility] [facility] Address: [address] [place] [address] Performed By: #### 2 4323-8 ####[facility] LABCLIA [id number] [place] [address] [place] ALP [Catalytic activity/Vol] 61 U/L Normal 34-123 [facility] Comment on above: Order Comment: Speci men Type: BLOOD SPECIMENOrdering Facility: [facility] Address: [address] [place] [address] Performed By: #### 2 4323-8 ####[facility] LABCLIA [id number] [place] [address] [place] ALT [Catalytic activity/Vol] 34 U/L Normal 7-38 [facility] Comment on above: Order Comment: Speci men Type: BLOOD SPECIMENOrdering Facility: [facility] Address: [address] [place] [address] Performed By: #### 2 4323-8 ####[facility] LABCLIA [id number] [place] [address] [place] Anion gap [Moles/Vol] 8 mmol/L Low 9-18 [facility] Comment on above: Order Comment: Speci men Type: BLOOD SPECIMENOrdering Facility: [facility] Address: [address] [place] [address] Performed By: #### 2 4323-8 ####[facility] LABCLIA [id number] [place] [address] [place] AST [Catalytic activity/Vol] 27 U/L Normal 13-35 [facility] Comment on above: Order Comment: Speci men Type: BLOOD SPECIMENOrdering Facility: [facility] Address: [address] [place] [address] Performed By: #### 2 4323-8 ####[facility] LABCLIA [id number] [place] [address] [place] Bilirubin [Mass/Vol] 0.7 mg/dL Normal 0.2-1.3 [facility] Comment on above: Order Comment: Speci men Type: BLOOD SPECIMENOrdering Facility: [facility] Address: [address] [place] [address] Performed By: #### 2 4323-8 ####[facility] LABCLIA [id number] [place] [address] [place] Calcium [Mass/Vol] 9.2 mg/dL Normal 8.5-10.2 [facility] Comment on above: Order Comment: Speci men Type: BLOOD SPECIMENOrdering Facility: [facility] Address: [address] [place] [address] Performed By: #### 2 4323-8 ####[facility] LABCLIA [id number] [place] [address] [place] Chloride [Moles/Vol] 97 mmol/L Normal 97-105 [facility] Comment on above: Order Comment: Speci men Type: BLOOD SPECIMENOrdering Facility: [facility] Address: [address] [place] [address] Performed By: #### 2 4323-8 ####[facility] LABCLIA [id number] [place] [address] [place] CO2 [Moles/Vol] 32 mmol/L High 22-30 [facility] Comment on above: Order Comment: Speci men Type: BLOOD SPECIMENOrdering Facility: [facility] Address: [address] [place] [address] Performed By: #### 2 4323-8 ####[facility] LABCLIA [id number] [place] [address] [place] Creatinine [Mass/Vol] 1.11 mg/dL High 0.58-0.96 [facility] Comment on above: Order Comment: Speci men Type: BLOOD SPECIMENOrdering Facility: [facility] Address: [address] [place] [address] Performed By: #### 2 4323-8 ####[facility] LABCLIA [id number] [place] [address] [place] Creatinine and Glomerular filtration rate.predicted panel (S/P/Bld) 52 mL/min/1.73m??? Low >=60 [facility] Comment on above: Order Comment: Speci men Type: BLOOD SPECIMENOrdering Facility: [facility] Address: [address] [place] [address] Result Comment: Shelley mated Glomerular Filtration Rate [...] actual GFR. Performed By: #### 2 4323-8 ####[facility] LABCLIA [id number] [place] [address] [place] Glucose [Mass/Vol] 123 mg/dL High 74-99 [facility] Comment on above: Order Comment: Speci men Type: BLOOD SPECIMENOrdering Facility: [facility] Address: [address] [place] [address] Result Comment: The [place] Diabetes Association (ADA) provides guidance for cutoff [...] Standards of Medical Care in Diabetes 2016, [place] [employer]. Diabetes Care. 2016.39(Suppl 1). Performed By: #### 2 4323-8 ####[facility] LABIA [id number] [place] [address] [place] Potassium [Moles/Vol] 3.7 mmol/L Normal 3.7-5.1 [facility] Comment on above: Order Comment: Speci men Type: BLOOD SPECIMENOrdering Facility: [facility] Address: [address] [place] [address] Performed By: #### 2 4323-8 ####[facility] LABIA [id number] [place] [address] [place] Protein [Mass/Vol] 6.1 g/dL Low 6.3-8.0 [facility] Comment on above: Order Comment: Speci men Type: BLOOD SPECIMENOrdering Facility: [facility] Address: [address] [place] [address] Performed By: #### 2 4323-8 ####[facility] LABCLIA [id number] [facility] [place] [place] [address] [place] Sodium [Moles/Vol] 137 mmol/L Normal 136-144 [facility] Comment on above: Order Comment: Speci men Type: BLOOD SPECIMENOrdering Facility: [facility] Address: [address] [place] [address] Performed By: #### 2 4323-8 ####[facility] LABCLIA [id number] [place] [address] [place] Urea nitrogen [Mass/Vol] 21 mg/dL Normal 7-21 [facility] Comment on above: Order Comment: Speci men Type: BLOOD SPECIMENOrdering Facility: [facility] Address: [address] [place] [address] Performed By: #### 2 4323-8 ####[facility] LABCLIA [id number] [place] [address] [place] DIGOXIN/LANOXINon 08-24-2023 Digoxin [Mass/Vol] 1.1 ng/mL Normal 0.6-1.2 [facility] Comment on above: Order Comment: Speci men Type: BLOOD SPECIMENOrdering Facility: [facility] Address: [address] [place] [address] Result Comment: Prov ided therapeutic concentrations are based on the 2008 ESC Guidelines for the Diagnosis and Treatment of Acute and Chronic Heart Failure.Reference ranges and high/low indicator flags are provided as general guidelines only. The treating physician must determine appropriate target levels/dosing based on the specific clinical situation. Performed By: #### D IG ####[facility] LABCLIA [id number] [place] [address] [place] HISTORY PHYSICALon HISTORY PHYSICAL Normal [facility] URINALYSIS, DIPSTICK ONLYon 08-24-2023 Bilirubin Ql (U) Negative Normal Negative [facility] Comment on above: Order Comment: Speci men Type: URINE SPECIMENOrdering Facility: [facility] Address: [address] [place] [address] Performed By: #### U A ####[facility] LABCLIA [id number] [place] [address] [place] Clarity (Unsp spec) Cloudy Abnormal [facility] Comment on above: Order Comment: Speci men Type: URINE SPECIMENOrdering Facility: [facility] Address: [address] [place] [address] Performed By: #### U A ####[facility] LABCLIA [id number] [place] [address] [place] Color (U) Yellow Normal Yellow [facility] Comment on above: Order Comment: Speci men Type: URINE SPECIMENOrdering Facility: [facility] Address: [address] [place] [address] Performed By: #### U A ####[facility] LABCLIA [id number] [place] [address] [place] Glucose Test strip (U) [Mass/Vol] Negative Normal Negative [facility] Comment on above: Order Comment: Speci men Type: URINE SPECIMENOrdering Facility: [facility] Address: [address] [place] [address] Performed By: #### U A ####[facility] LABCLIA [id number] [place] [address] [place] Hemoglobin Ql (U) Trace Abnormal Negative [facility] Comment on above: Order Comment: Speci men Type: URINE SPECIMENOrdering Facility: [facility] Address: [address] [place] [address] Performed By: #### U A ####[facility] LABCLIA [id number] [place] [address] [place] Ketones Ql (U) Trace Abnormal Negative [facility] Comment on above: Order Comment: Speci men Type: URINE SPECIMENOrdering Facility: [facility] Address: [address] [place] [address] Performed By: #### U A ####[facility] LABCLIA [id number] [place] [address] [place] Leukocyte esterase Test strip Ql (U) 1+ Abnormal Negative [facility] Comment on above: Order Comment: Speci men Type: URINE SPECIMENOrdering Facility: [facility] Address: [address] [place] [address] Performed By: #### U A ####[facility] LABCLIA [id number] [place] [address] [place] Nitrite Ql (U) Negative Normal Negative [facility] Comment on above: Order Comment: Speci men Type: URINE SPECIMENOrdering Facility: [facility] Address: [address] [place] [address] Performed By: #### U A ####[facility] LABCLIA [id number] [place] [address] [place] pH (U) 5.5 [pH] Normal <8.5 [facility] Comment on above: Order Comment: Speci men Type: URINE SPECIMENOrdering Facility: [facility] Address: [address] [place] [address] Performed By: #### U A ####[facility] LABIA [id number] [place] [address] [place] Protein (U) [Mass/Vol] 1+ Abnormal Negative [facility] Comment on above: Order Comment: Speci men Type: URINE SPECIMENOrdering Facility: [facility] Address: [address] [place] [address] Performed By: #### U A ####[facility] LABIA [id number] [place] [address] [place] Specific gravity (U) [Rel density] 1.021 Normal 1.005-1.030 [facility] Comment on above: Order Comment: Speci men Type: URINE SPECIMENOrdering Facility: [facility] Address: [address] [place] [address] Performed By: #### U A ####[facility] LABIA [id number] [place] [address] [place] [facility] Urobilinogen Ql (U) 1.0 EU/dL Normal 0.2-1.0 EU/dL [facility] Comment on above: Order Comment: Speci men Type: URINE SPECIMENOrdering Facility: [facility] Address: [address] [place] [address] Performed By: #### U A ####[facility] LABIA [id number] [place] [address] [place] CBC panel Auto (Bld)on 08-23 Erythrocyte distribution width (RBC) [Ratio] 12.9 % Normal 11.5-15.0 [facility] Comment on above: Order Comment: Speci men Type: BLOOD SPECIMENOrdering Facility: [facility] Address: [address] [place] [address] Performed By: #### 5 8410-2 ####[facility] LABIA [id number] [place] [address] [place] Hematocrit (Bld) [Volume fraction] 43.4 % Normal 36.0-46.0 [facility] Comment on above: Order Comment: Speci men Type: BLOOD SPECIMENOrdering Facility: [facility] Address: [address] [place] [address] Performed By: #### 5 8410-2 ####[facility] LABIA [id number] [place] [id number] [place] Hemoglobin (Bld) [Mass/Vol] 14.4 g/dL Normal 11.5-15.5 [facility] Comment on above: Order Comment: Speci men Type: BLOOD SPECIMENOrdering Facility: [facility] Address: [address] [place] [address] Performed By: #### 5 8410-2 ####[facility] LABIA [id number] [place] [address] [place] MCH (RBC) [Entitic mass] 30.3 pg Normal 26.0-34.0 [facility] Comment on above: Order Comment: Speci men Type: BLOOD SPECIMENOrdering Facility: [facility] Address: [address] [place] [address] Performed By: #### 5 8410-2 ####[facility] LABIA [id number] [place] [address] [place] MCHC (RBC) [Mass/Vol] 33.2 g/dL Normal 30.5-36.0 [facility] Comment on above: Order Comment: Speci men Type: BLOOD SPECIMENOrdering Facility: [facility] Address: [address] [place] [address] Performed By: #### 5 8410-2 ####[facility] [id number] [place] [address] [place] MCV (RBC) [Entitic vol] 91.4 fL Normal 80.0-100.0 [facility] Comment on above: Order Comment: Speci men Type: BLOOD SPECIMENOrdering Facility: [facility] Address: [address] [place] [address] Performed By: #### 5 8410-2 ####[facility] [id number] [place] [address] [place] Nucleated RBC (Bld) [#/Vol] 10*3/uL Normal <0.01 [facility] Comment on above: Order Comment: Speci men Type: BLOOD SPECIMENOrdering Facility: [facility] Address: [address] [place] [address] Performed By: #### 5 8410-2 ####[facility] LABIA [id number] [place] [address] [place] Platelet mean volume (Bld) [Entitic vol] 10.5 fL Normal 9.0-12.7 [facility] Comment on above: Order Comment: Speci men Type: BLOOD SPECIMENOrdering Facility: [facility] Address: [address] [place] [address] Performed By: #### 5 8410-2 ####[facility] LABCLIA [id number] [place] [address] [place] Platelets (Bld) [#/Vol] 215 10*3/uL Normal 150-400 [facility] Comment on above: Order Comment: Speci men Type: BLOOD SPECIMENOrdering Facility: [facility] Address: [address] [place] [address] Performed By: #### 5 8410-2 ####[facility] LABCLIA [id number] [place] [address] [place] RBC (Bld) [#/Vol] 4.75 10*6/uL Normal 3.90-5.20 [facility] Comment on above: Order Comment: Speci men Type: BLOOD SPECIMENOrdering Facility: [facility] Address: [address] [place] [address] Performed By: #### 5 8410-2 ####[facility] LABIA [id number] [place] [address] [place] WBC (Bld) [#/Vol] 6.24 10*3/uL Normal 3.70-11.00 [facility] Comment on above: Order Comment: Speci men Type: BLOOD SPECIMENOrdering Facility: [facility] Address: [address] [place] [address] Performed By: #### 5 8410-2 ####[facility] LABIA [id number] [place] [address] [place] CNOVon 08-23-2023 CNOV Normal [facility] CNOV Normal [facility] CREATININE BLDon 08-23-2023 Creatinine [Mass/Vol] 0.97 mg/dL High 0.58-0.96 [facility] Comment on above: Order Comment: Speci men Type: BLOOD SPECIMENOrdering Facility: [facility] Address: [address] [place] [address] Performed By: #### C RET1 ####[facility] LABIA [id number] [place] [address] [place] Creatinine and Glomerular filtration rate.predicted panel (S/P/Bld) 61 mL/min/1.73m??? Normal >=60 [facility] Comment on above: Order Comment: Speci men Type: BLOOD SPECIMENOrdering Facility: [facility] Address: [address] [place] [address] Result Comment: Shelley mated Glomerular Filtration Rate [...] actual GFR. Performed By: #### C RET1 ####[facility] LABIA [id number] [place] [address] [place] CTA CHEST (GATED) W IVCONon 08-23-2023 CTA CHEST (GATED) W IVCON Normal [facility] Comprehensive metabolic 2000 panelon 08-23-2023 Albumin [Mass/Vol] 4.4 g/dL Normal 3.9-4.9 [facility] Comment on above: Order Comment: Speci men Type: BLOOD SPECIMENOrdering Facility: [facility] Address: [address] [place] [address] Performed By: #### 2 4323-8, 57220-9 ####[facility] LABIA [id number] [place] [address] [place] ALP [Catalytic activity/Vol] 66 U/L Normal 34-123 [facility] Comment on above: Order Comment: Speci men Type: BLOOD SPECIMENOrdering Facility: [facility] Address: [address] [place] [address] Performed By: #### 2 4323-8, 34469-5 ####[facility] LABCLIA [id number] [place] [address] [place] ALT [Catalytic activity/Vol] 40 U/L High 7-38 [facility] Comment on above: Order Comment: Speci men Type: BLOOD SPECIMENOrdering Facility: [facility] Address: [address] [place] [address] Performed By: #### 2 4323-8, 12813-4 ####[facility] LABCLIA [id number] [place] [address] [place] Anion gap [Moles/Vol] 9 mmol/L Normal 9-18 [facility] Comment on above: Order Comment: Speci men Type: BLOOD SPECIMENOrdering Facility: [facility] Address: [address] [place] [address] Performed By: #### 2 4323-8, 14185-6 ####[facility] LABCLIA [id number] [place] [address] [place] AST [Catalytic activity/Vol] 31 U/L Normal 13-35 [facility] Comment on above: Order Comment: Speci men Type: BLOOD SPECIMENOrdering Facility: [facility] Address: [address] [place] [address] Performed By: #### 2 4323-8, 39099-6 ####[facility] LABCLIA [id number] [place] [address] [place] Bilirubin [Mass/Vol] 0.8 mg/dL Normal 0.2-1.3 [facility] Comment on above: Order Comment: Speci men Type: BLOOD SPECIMENOrdering Facility: [facility] Address: [address] [place] [address] Performed By: #### 2 4323-8, 24914-3 ####[facility] LABCLIA [id number] [place] [address] [place] Calcium [Mass/Vol] 9.8 mg/dL Normal 8.5-10.2 [facility] Comment on above: Order Comment: Speci men Type: BLOOD SPECIMENOrdering Facility: [facility] Address: [address] [place] [address] Performed By: #### 2 4323-8, 38438-1 ####[facility] LABCLIA [id number] [place] [address] [place] Chloride [Moles/Vol] 98 mmol/L Normal 97-105 [facility] Comment on above: Order Comment: Speci men Type: BLOOD SPECIMENOrdering Facility: [facility] Address: [address] [place] [address] Performed By: #### 2 4323-8, 10235-8 ####[facility] LABCLIA [id number] [place] [address] [place] CO2 [Moles/Vol] 32 mmol/L High 22-30 [facility] Comment on above: Order Comment: Speci men Type: BLOOD SPECIMENOrdering Facility: [facility] Address: [address] [place] [address] Performed By: #### 2 4323-8, 09171-2 ####[facility] LABCLIA [id number] [place] [address] [place] Creatinine [Mass/Vol] 0.98 mg/dL High 0.58-0.96 [facility] Comment on above: Order Comment: Speci men Type: BLOOD SPECIMENOrdering Facility: [facility] Address: [address] [place] [address] Performed By: #### 2 4323-8, 46206-5 ####[facility] LABCLIA [id number] [place] [address] [place] Creatinine and Glomerular filtration rate.predicted panel (S/P/Bld) 60 mL/min/1.73m??? Normal >=60 [facility] Comment on above: Order Comment: Nichole becerra Type: BLOOD SPECIMENOrdering Facility: [facility] Address: [address] [place] [address] Result Comment: Shelley mated Glomerular Filtration Rate [...] actual GFR. Performed By: #### 2 4323-8, 79867-0 ####[facility] LABIA [id number] [place] [address] [place] Glucose [Mass/Vol] 127 mg/dL High 74-99 [facility] Comment on above: Order Comment: Nichole becerra Type: BLOOD SPECIMENOrdering Facility: [facility] Address: [address] [place] [address] Result Comment: The [place] Diabetes Association (ADA) provides guidance for cutoff [...] Standards of Medical Care in Diabetes 2016, [place] [employer]. Diabetes Care. 2016.39(Suppl 1). Performed By: #### 2 4323-8, 72931-4 ####[facility] LABIA [id number] [place] [address] [place] Potassium [Moles/Vol] 4.1 mmol/L Normal 3.7-5.1 [facility] Comment on above: Order Comment: Nichole becerra Type: BLOOD SPECIMENOrdering Facility: [facility] Address: [address] [place] [address] Performed By: #### 2 4323-8, 40412-2 ####[facility] LABCLIA [id number] [place] [address] [place] Protein [Mass/Vol] 6.8 g/dL Normal 6.3-8.0 [facility] Comment on above: Order Comment: Speci men Type: BLOOD SPECIMENOrdering Facility: [facility] Address: [address] [place] [address] Performed By: #### 2 4323-8, 52504-7 ####[facility] LABIA [id number] [place] [address] [place] Sodium [Moles/Vol] 139 mmol/L Normal 136-144 [facility] Comment on above: Order Comment: Speci men Type: BLOOD SPECIMENOrdering Facility: [facility] Address: [address] [place] [address] Performed By: #### 2 4323-8, 57370-4 ####[facility] LABCLIA [id number] [place] [address] [place] Urea nitrogen [Mass/Vol] 17 mg/dL Normal 7-21 [facility] Comment on above: Order Comment: Speci men Type: BLOOD SPECIMENOrdering Facility: [facility] Address: [address] [place] [address] Performed By: #### 2 4323-8, 10847-4 ####[facility] LABIA [id number] [place] [id number] [place] VCZ87ue 08-23-2023 ECG01 Normal [facility] NT-proBNP SerPl-mCncon 08-23 Natriuretic peptide.B prohormone N-Terminal [Mass/Vol] 3265 pg/mL High <450 [facility] Comment on above: Order Comment: Speci men Type: BLOOD SPECIMENOrdering Facility: [facility] Address: [address] [place] [address] Performed By: #### 2 4323-8, 72950-0 ####[facility] LABCLIA [id number] [place] [address] [place] RIGHT HEART CATH REPORTon RIGHT HEART CATH REPORT Normal [facility] US CAROTID ARTERIES [facility] LABon 08-23-2023 US CAROTID [facility]ER[facility] LAB Normal [facility] CNPNon 08-22-2023 CNPN Normal [facility] CNPNon 08-16-2023 CNPN Normal [facility] Outside Cardiovascularon Outside Cardiovascular [id number]# 1.00TIFF Normal [facility] Progress Note-Physicianon Progress Note-Physician [id number]#1 .00TIFF Normal [facility] Echocardiogram-Transesophage anamaria 07-28-2023 Echocardiogram-Transe sophageal [id number]# 1.00TIFF Normal [facility] 07-24-2023 CNPN Normal [facility] Discharge Instructionson Discharge Instructions [id number]# 1.00TIFF Normal [facility] Formson 07-24-2023 Forms [id number]#1 .00TIFF Normal [facility] Consent for Treatmenton Consent for Treatment [id number]#1 .00TIFF Normal [facility] Inpatient Clinical Summaryon 07-21-2023 Inpatient Clinical Summary [address] [address] Clinical Summary Person Information: Name: JERONIMO ASENCIOYCStas Ruiz Age: 73 Years : 1950 Sex: Female PCP: Peggy Nazario MD Marital Status: Race: White Ethnicity: Non- or Language: [place] Visit Id: Visit Reason: I51.9, I42.8 Speciality: Acuity: Enc Type: Ambulatory/Same Day Surgery Med Service: Surgery Arrival: 07/21/2023 06:33:24 Discharge: Dispo Type: Address: [address] [place] [address] [address] [facility] [id number] Provider Notes: Diagnosis: Problems Active Urethral stricture [...] Follow up: With: Address: When: Johan HENRIQUEZ [address] [place] [address] [phone] Business (1) Comments: -After your appointment with CC Type Location Start [facility] State [facility] Office Visit [facility] Shira 01/24/2024 2:30 PM 01/24/2024 2:45 PM Confirmed Patient Education Information: CV - Post-Transesophageal Echocardiogram (Custom) Normal [facility] Inpatient Patient Summaryon 07-21-2023 Inpatient Patient Summary [place] [id number] Patient Discharge Instructions PERSON INFORMATION Name: HARJIT [...] Follow up: With: Address: When: Johan HENRIQUEZ [address] [place] [address] [phone] alphacityguides (1) Comments: -After your appointment with CC In the event that this physician does not participate in your insurance network, please consult with your insurance company to find a nearby participating provider. Type Location Start Finish State [facility] [facility] [place] Silva 01/24/2024 2:30 PM 01/24/2024 [...] Mouth every day. Refills: 0. Pharmacy Information: [facility] Comment: PATIENT EDUCATION INFORMATION Instructions: [place], [place] POST-TRANSESOPHAGEAL ECHOCARDIOGRAM AFTER THE PROCEDURE: Diet: ? May eat/drink and/or take normal daily medications after 10:45 Activity: ? You should have someone stay with you for the next (more content not included)... Normal [facility] Patient Education - Texton 1 09-21-2022 Patient Education - Text [place] POST-TRANSESOPHAGEAL ECHOCARDIOGRAM AFTER THE PROCEDURE: Diet: [...] Seek Medical Care if: ? Notify your property controller should you have any difficulty swallowing or coughing up blood. ? In the event you are unable to reach your property controller, please call [facility] at [phone] and the barbed wire machine operator will assist you. Normal [facility] Referrals Officeon 3 Referrals Office [id number]# 1.00TIFF Normal [facility] Consent for Procedure/Surger yon 07-20-2023 Consent for Procedure/Surgery [id number] #1.00TIFF Normal [facility] Consent for Treatmenton 12-0 Consent for Treatment [id number]#1 .00TIFF Normal [facility] Heart and Vascular Office/Cl inic [...] confirmed by markedly elevated V wave on [place] catheter wedge pressure tracing. 5. Normal left [...] The patient wishes to go to the [facility] for mitral and tricuspid valve repair if [...] Renal le (more content not included)... Normal [facility] Comment on above: Result Comment: Elec tronically Signed By: MARTINEZ MCMAHON, Johan Patino\.br\Date and Time Signed: 07/20/23 10:38 EST Physician Orderon 07-20-2023 Physician Order [id number] #1.00TIFF Normal [facility] Ambulatory Visit Summaryon 1 09-19-2022 Ambulatory Visit [...] Follow-Up Appointments 2022 10:30 AM EST With: MARTINEZ MCMAHON, Johan Patino Where: Cardiology Clinic Monday 2:30 PM EDT [...] including vitamins, herbs, eye drops, creams, and gxvg-qmi-bubecwe medicines. ? Whether you are or may [...] results be (more content not included)... Normal [facility] Urology Office/Clinic Noteon 07-19-2023 Urology Office/Clinic Note Chief Complaint f/u for urinary retention HPI Staff Pt was last seen on 04/26/23. Pt was [place] [facility] [place]. Pt had Robles. placed [...] of incomplete bladder emptying) Pt presented to [facility] [place] 07/03/23 due to urinary retention. [...] 03/29/22, 10/10/21. Follow-up With When Contact Information Micheline BROOKS MD, [facility] [address], [place] [address]- Additional Instructions: 6 mos Patient Education Urodynamic [...] Oral, BID (more content not included)... Normal [facility] Comment on above: Result Comment: Elec tronically Signed By: Micheline BROOKS MD\.br\Date and Time Signed: 07/19/23 16:01 EST\.br\Electronically Co-Signed By: Felisa Bautista.br\Date and Time Co-Signed: 07/19/23 15:59 EST Coding Queryon 07-17-2023 Coding Query - From: Natalya Ansari To: Nahid SERRATO MD; Sent: 07/14/2023 12:05:07 EST ! Subject: Coding Query Dr Serrato, In your Progress notes you list- 4. Elevated troponin Secondary to type 2 non-ST segment elevation myocardial infarction from above and mild cad The ekg nor echo showed RI and the Cardiology consult didn't mention it and his recommendations were reviewed and agreed with. Was the RI type II ruled out or should that be coded? Thank you Fiona VERGARA Coding From: Nahid SERRATO MD To: Natalya Ansari; Sent: 07/17/2023 12:28:48 EST Subject: RE: Coding Query Caller Name: HARJIT ASENCIO I; Caller Number: H Type 2 acute NSTEMI due to demand ischemia from A-FIB with RVR. (POA) Normal [facility] ED Note-Physicianon 07-15-20 ED Note-Physician Basic Information Time Seen: Tay LINDSEYJeff 07/07/2023 09:00 Chief Complaint discharged yesterday [place] [facility], reports can't breathe w/exertion History of [...] of 40. Case is discussed with her property controller. She just underwent ischemic evaluation including catheterization [...] HENRIQUEZ In 3 days 07/10/2023 EST [address] [place] [address]- [phone] Business (1) Additional Instructions: Peggy Nazario In 3 days 07/10/[address] [place] [address]- Business (1) Additional Instructions (more content not included)... Normal [facility] Comment on above: Result Comment: Elec tronically Signed By: Noe Black PA-C\.br\Date and Time Signed: 07/07/23 15:56 EST\.br\Electronically Co-Signed By: Jeff Cross DO\.br\Date and Time Co-Signed: 07/15/23 06:59 EST Cardiovascular Reporton 06-16 Cardiovascular Report [id number]# 2.00TIFF Normal [facility] Nursing Assessmenton 023 Nursing Assessment [id number]# 1.00TIFF Normal [facility] Discharge Instructionson Discharge Instructions [id number]# 1.00TIFF Normal [facility] Auto Diffon 07-07-2023 Basophils/100 WBC (Bld) 0.6 % Normal 0.0-2.0 [facility] Comment on above: Order Comment: Order Added by Discern Expert. Performed By: #### 2 736248, 74374323, 1015392, 4098885, 5441515, 6583428 #### [facility] Laboratory [address] [place] [address] Basophils/Leukocytes Auto (Bld) [Pure # fraction] 0.0 E9/L Normal 0.0-0.2 [facility] Comment on above: Order Comment: Order Added by Discern Expert. Performed By: #### 2 437223, 56054720, 0834850, 0527756, 4641242, 5571851 #### [facility] Laboratory [address] [place] [address] Eosinophils/100 WBC (Bld) 1.5 % Normal 0.0-8.0 [facility] Comment on above: Order Comment: Order Added by Discern Expert. Performed By: #### 2 681081, 55717797, 4681068, 8942023, 9158384, 0351294 #### [facility] Laboratory [address] [place] [address] Eosinophils/Leukocyte s Auto (Bld) [Pure # fraction] 0.1 E9/L Normal 0.0-0.5 [facility] Comment on above: Order Comment: Order Added by Discern Expert. Performed By: #### 2 221059, 49674960, 6971922, 0042522, 1446640, 4307914 #### [facility] Laboratory [address] [place] [address] 50128 Lymphocytes/100 WBC (Bld) 15.3 % Normal 14.0-50.0 [facility] Comment on above: Order Comment: Order Added by Discern Expert. Performed By: #### 2 726388, 54688069, 8059333, 2683886, 0254348, 1303049 #### [facility] Laboratory [address] [place] [address] 890[address] Lymphocytes/Leukocyte s Auto (Bld) [Pure # fraction] 1.2 E9/L Normal 1.0-4.0 [facility] Comment on above: Order Comment: Order Added by Discern Expert. Performed By: #### 2 616028, 19016011, 4359681, 7006397, 0765722, 3833818 #### [facility] [address] [place] [address] 825[address] Monocytes/100 WBC (Bld) 6.4 % Normal 4.0-14.0 [facility] Comment on above: Order Comment: Order Added by Discern Expert. Performed By: #### 2 440145, 87945718, 9392076, 7169844, 9188442, 6681151 #### [facility] [address] [place] [address] Monocytes/Leukocytes Auto (Bld) [Pure # fraction] 0.5 E9/L Normal 0.2-1.0 [facility] Comment on above: Order Comment: Order Added by Discern Expert. Performed By: #### 2 949345, 32079988, 9660811, 2720353, 2703375, 4439270 #### [facility] Laboratory [address] [place] [address] 10990 Neutrophils/100 WBC (Bld) 76.2 % High 36.0-75.0 [facility] Comment on above: Order Comment: Order Added by Discern Expert. Performed By: #### 2 265341, 84741253, 4728977, 4605046, 0825739, 2366928 #### [facility] [address] [place] [address] Neutrophils/Leukocyte s Auto (Bld) [Pure # fraction] 6.1 E9/L Normal 2.0-7.5 [facility] Comment on above: Order Comment: Order Added by Discern Expert. Performed By: #### 2 129260, 67781041, 8567218, 1803390, 3253103, 8297757 #### [facility] [address] [place] [address] BMPon 07-07-2023 Creatinine [Mass/Vol] 0.8 mg/dL Normal 0.5-1.3 [facility] Comment on above: Performed By: #### 2 259049, 06955640, 8549519, 5368461, 5863038, 0437096 #### [facility] [address] [place] [address] Urea nitrogen [Mass/Vol] 13 mg/dL Normal 5-21 [facility] Comment on above: Performed By: #### 2 986373, 81587854, 6561198, 3979986, 7965205, 4894011 #### [facility] [address] [place] [address] Urea nitrogen/Creatinine [Mass ratio] 16 No Units Normal 10-20 [facility] Comment on above: Performed By: #### 2 607148, 67065614, 3969442, 8984848, 2842053, 2715543 #### [facility] [address] [place] [address] Anion gap [Moles/Vol] 14 mmol/L Normal 6-16 [facility] Comment on above: Performed By: #### 2 827212, 79428949, 4075681, 7789544, 1145261, 6925425 #### [facility] [address] [place] [address] Calcium [Mass/Vol] 8.7 mg/dL Low 8.9-11.1 [facility] Comment on above: Performed By: #### 2 916653, 11306136, 3978244, 6790824, 0032655, 1700221 #### [facility] Laboratory [address] [place] [address] Chloride [Moles/Vol] 100 mmol/L Low 101-111 [facility] Comment on above: Performed By: #### 2 814429, 61394843, 6420628, 8577052, 1457316, 5103440 #### [facility] [address] [place] [address] CO2 [Moles/Vol] 26 mmol/L Normal 21-31 [facility] Comment on above: Performed By: #### 2 928427, 52513655, 8065839, 2918516, 4707374, 4369879 #### [facility] [address] [place] [address] Glucose [Mass/Vol] 137 mg/dL Normal 55-199 [facility] Comment on above: Result Comment: If t his glucose result represents a fasting glucose, interpretation should refer to the following reference range: 55-99 mg/dL Performed By: #### 2 866177, 09941527, 8021293, 0394626, 7392587, 8077448 #### [facility] [address] [place] [address] Potassium [Moles/Vol] 4.3 mmol/L Normal 3.5-5.3 [facility] Comment on above: Performed By: #### 2 115114, 66565467, 6345664, 7441475, 6242955, 0584399 #### [facility] [address] [place] [address] Sodium [Moles/Vol] 136 mmol/L Normal 135-145 [facility] Comment on above: Performed By: #### 2 275215, 85735787, 3670681, 1079823, 5215900, 7191485 #### [facility] [address] [place] [address] BNPon 07-07-2023 Natriuretic peptide B (Bld) [Mass/Vol] 756 pg/mL High 5-80 [facility] Comment on above: Performed By: #### 2 564713, 25917466, 2585716, 1136149, 3225123, 7792011 #### [facility] [address] [place] [address] CBC w/ Auto Diffon 3 Erythrocyte distribution width (RBC) [Ratio] 13.8 % Normal 10.9-14.2 [facility] Comment on above: Performed By: #### 2 208015, 53574631, 9326596, 3233545, 7884290, 8449378 #### [facility] [address] [place] [address] Hematocrit (Bld) [Volume fraction] 40.3 % Normal 34.0-46.0 [facility] Comment on above: Performed By: #### 2 467745, 16013813, 0230551, 5033433, 1403740, 4983508 #### [facility] Laboratory [address] [place] 1589057 Hemoglobin (Bld) [Mass/Vol] 13.0 g/dL Normal 12.0-16.0 [facility] Comment on above: Performed By: #### 2 404099, 40306856, 1557471, 5881230, 8308401, 9278677 #### [facility] Laboratory [address] [place] [address] 267[address] MCH (RBC) [Entitic mass] 29.2 pg Normal 27.0-34.0 [facility] Comment on above: Performed By: #### 2 945163, 89191773, 4664730, 8540806, 5818855, 5570708 #### [facility] [address] [place] [address] MCHC (RBC) [Mass/Vol] 32.3 g/dL Normal 31.4-36.0 [facility] Comment on above: Performed By: #### 2 582935, 86386314, 2979236, 5531290, 4483094, 7487472 #### [facility] Laboratory [address] [place] [address]993 MCV (RBC) [Entitic vol] 90.2 fL Normal 80.0-100.0 [facility] Comment on above: Performed By: #### 2 920751, 48872305, 3624213, 7406493, 6111795, 0227597 #### [facility] Laboratory [address] [place] [address] Platelet mean volume (Bld) [Entitic vol] 8.5 fL Normal 6.4-10.8 [facility] Comment on above: Performed By: #### 2 625685, 77782800, 4310419, 5313153, 9039687, 4586678 #### [facility] Laboratory [address] [place] [address] Platelets (Bld) [#/Vol] 291.0 E9/L Normal 150.0-500.0 [facility] Comment on above: Performed By: #### 2 249729, 99690750, 5251856, 7610058, 9537338, 5300659 #### [facility] Laboratory [address] [place], [place] [address] RBC (Bld) [#/Vol] 4.5 E12/L Normal 4.3-5.9 [facility] Comment on above: Performed By: #### 2 725078, 14958985, 6875354, 6402228, 5853114, 5035477 #### [facility] Laboratory [address] [place] [address]89[address] WBC corrected for nucl RBC Auto (Bld) [#/Vol] 8.0 E9/L Normal 4.0-11.0 [facility] Comment on above: Performed By: #### 2 102775, 91211206, 8765855, 4557663, 3884570, 0479653 #### [facility] [address] [place] [address] CHEMISTRYOrdered By: SYSTEM SYSTEM on 07-07-2023 Troponin [...] Sensitivity Troponin I Instructions For Use, Marlys [place], March 2018) Anion gap [Moles/Vol] 14 mmol/L [...] 77 mL/min/1.73 m2 Normal >=59mL/min/1 .73 m2 [facility] Chem S Comment on above: Interpretive [...] Sensitivity Troponin I Instructions For Use, Marlys [place], March 2018) Urea nitrogen [Mass/Vol] 13 mg/dL Normal 5 - 21 mg/dL [facility] Remisol Urea nitrogen/Creatinine [Mass ratio] 16 mg/mg Normal 10 - 20 [facility] Remisol CHEMISTRYOrdered By: Margaret Collier on 07-07-2023 Natriuretic peptide B (Bld) [Mass/Vol] 756 pg/mL High 5 - 80 pg/mL [facility] HemeManSS COAGULATIONOrdered By: Fay Tran on 07-07-2023 aPTT Coag (PPP) [Time] 28.4 s Normal 25.1 - 36.5 second(s) [facility] Auto Coag Comment on above: Interpretive [...] the same coagulation reagent and instrumentation as [facility]. Currently there are no coagulation studies available worldwide for children to 14 days, and no normal ranges. Heparin therapeutic range (represented by Anti-Factor Xa activity of 0.2 - 0.4 U/mL) corresponds to PTT of 56.6 - 109.0 sec. INR Coag (PPP) [Relative time] 1.0 {INR} Invalid Interpretation Code [facility] Auto Coag Comment on above: Interpretive Data: I NR results are specifically intended to assess patients stabilized on long-term Anticoagulation therapy suggested INR s Less Intensive Anticoagulation 2.0 3.0 Conventional Range 3.0 4.5 PT Coag (PPP) [Time] 11.3 s Normal 9.4 - 1 2.5 second(s) [facility] Auto Coag Comment on above: Interpretive [...] the same coagulation reagent and instrumentation as [facility]. Currently there are no coagulation studies available worldwide for children to 14 days, and no normal ranges. Consent for Procedure/Surger yon 07-07-2023 Consent for Procedure/Surgery [id number]# 1.00TIFF Normal [facility] Consent for Treatmenton 06-15 Consent for Treatment [id number]#1 .00TIFF Normal [facility] Discharge Instructionson Discharge Instructions [id number]#1 .00TIFF Normal [facility] ED Clinical Summaryon 2022 ED Clinical Summary [address] [address] ED Clinical Summary Person Information Name: HARJIT ASENCIO I [place] Age: 73 Years : 1950 Sex: Female Language: Sierra Leonean PCP: Aravind MCMAHON, Peggy Mcmillan Marital Status: Visit Id: Visit Reason: Shortness [...] 07/07/2023 13:04:13 07/07/2023 13:04:13 07/07/2023 13:04:13 ADDRESS: [address] [place] [address] [address] [facility] [id number] PHYS DOC NOTES: MEDICAL INFORMATION: Prescriptions Given: [...] Follow up: With: Address: When: Johan HENRIQUEZ [address] [place] [address] [phone] alphacityguides (1) In 3 days 07/10/2023 With: Address: When: Peggy Nazario [address] [place] [address] alphacityguides (1) In 3 days 07/10/2023 DIAGNOSIS: A-fib; Anxiety Normal [facility] ED Note-Nursingon 07-07-2023 ED Note-Nursing discussed in length medications pt needs to take yet today and need to tack picker Rx 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 Normal [facility] ED Patient Education Noteon 07-07-2023 [...] signals of the heart. ? An ambulatory batch unit treater to record your heart's activity for a [...] Trouble breathing. (more content not included)... Normal [facility] ED Patient Summaryon 023 ED Patient Summary [address] [address] Patient Discharge Instructions Person Information Name: HARJIT ASENCIO I Age: 73 Years Arrival Date: 07/07/2023 08:56:07 Discharge Diagnosis: A-fib; Anxiety Primary Care Physician: Peggy Nazario MD Provider Information Primary Provider: Jeff Cross DO Advanced Service Attendant Cafeteria:Noe Black PA-C The exam and treatment you received in the Emergency Department were for an urgent problem and are not intended as complete care. It is important that you follow up with a doctor, nurse practitioner, or physician?s phys assistant for ongoing care. If your symptoms become worse or you do not improve as expected and you are unable to reach your usual health care provider, you should return to the Emergency Department. We are available 24 hours a day. ELIF HARJIT I has been given the following list of patient education materials, prescriptions and follow-up instructions: Follow-up Instructions: With: Address: When: Johan HENRIQUEZ [address] [place] [address] [phone] alphacityguides (1) In 3 days 07/10/2023 With: Address: When: Peggy Nazario [address] [place] [phone] alphacityguides (1) In 3 days 07/10/2023 In the event that this physician does not participate in your insurance network, please consult with your insurance company to find a nearby participating provider. Patient Education Materials: Managing Anxiety, Adult; Atrial Fibrillation A MESSAGE TO ALL PATIENTS REGARDING OPIOIDS PRESCRIPTION OPIOIDS: WHAT YOU NEED TO KNOW Prescription opioids can be used to help relieve gmzkqzjs-nw-walher pain and are often prescribed following a [...] addiction, tel (more content not included)... Normal [facility] HEMATOLOGYOrdered By: SYSTEM SYSTEM on 07-07-2023 Basophils/100 WBC (Bld) 0.6 % Normal 0.0 - 2.0 % [facility] HemeAuto[facility] Basophils/Leukocytes Auto (Bld) [Pure # [...] 291.0 E9/L Normal 150.0 - 500.0 E9/L [facility] RBC (Bld) [#/Vol] 4.5 E12/L Normal 4.3 - 5.9 E12/L [facility] WBC corrected for nucl RBC Auto (Bld) [#/Vol] 8.0 E9/L Normal 4.0 - 11.0 E9/L [facility] Insurance Correspondence Off iceon 07-07-2023 Insurance Correspondence Office [id number]#1 .00TIFF Normal [facility] Monitor Recordon 07-07-2023 Monitor Record [id number]# 1.00TIFF Normal [facility] Monitor Record [id number]# 1.00TIFF Normal [facility] Monitor Record [id number]# 1.00TIFF Normal [facility] PT & PTTon 07-07-2023 aPTT Coag (PPP) [Time] 28.4 second(s) Normal 25.1-36.5 [facility] Comment on above: Result Comment: [...] the same coagulation reagent and instrumentation as [facility]. Currently there are no coagulation studies available worldwide for children to 14 days, and no normal ranges. Heparin therapeutic range (represented by Anti-Factor Xa activity of 0.2 - 0.4 U/mL) corresponds to PTT of 56.6 - 109.0 sec. Performed By: #### 2 354602, 67863193, 4619938, 2143609, 2874181, 2134188 #### [facility] Laboratory [address] [place] [address] INR Coag (PPP) [Relative time] 1.0 {INR} Invalid Interpretation Code [facility] Comment on above: Result Comment: INR results are specifically intended to assess patients stabilized on long-term Anticoagulation therapy suggested INR?s ?Less Intensive Anticoagulation? 2.0 ? 3.0 Conventional Range 3.0 ? 4.5 Performed By: #### 2 112474, 58357376, 0188667, 1379188, 2690536, 6839991 #### [facility] [address] [place] [address] PT Coag (PPP) [Time] 11.3 second(s) Normal 9.4-12.5 [facility] Comment on above: Result Comment: [...] the same coagulation reagent and instrumentation as [facility]. Currently there are no coagulation studies available worldwide for children to 14 days, and no normal ranges. Performed By: #### 2 822744, 28390073, 7775200, 8209573, 3620747, 2652101 #### [facility] [address] [place] [address] Troponin 0 Hr.on 07-07-2023 Troponin I.cardiac [Mass/Vol] 39.60 pg/mL Abnormal 10.10-27.10 [facility] Comment on above: Result Comment: [...] conjunction with clinical conditions of myocardial infarction. ([facility] High Sensitivity Troponin I Instructions For Use, [place] [employer], March 2018) Performed By: #### 2 [id number], [id number], 7458661, 4589962, 7837487, 8906729 #### [facility] [address] [place] [address] Troponin 3 Hr.on 07-07-2023 Troponin I.cardiac [Mass/Vol] 42.10 pg/mL Abnormal 10.10-27.10 [facility] Comment on above: Result Comment: [...] conjunction with clinical conditions of myocardial infarction. ([facility] High Sensitivity Troponin I Instructions For Use, [employer], March 2018) Performed By: #### 1 [id number] ####[facility] [address] [place] [address] XR Chest Single Viewon 07-07 XR Chest [...] mGy = na DAP = na Normal [facility] eGFRon 07-07-2023 GFR/1.73 sq M.predicted among non-blacks MDRD (S/P/Bld) [Vol rate/Area] 77 mL/min/1.73 m2 Normal >=59 [facility] Comment on above: Order Comment: Order added by Discern Expert. Result Comment: Gravel Inspector luis kidney disease could be indicated at eGFR's of less than 60 mL/min/1.73m2. Kidney failure is indicated at less than 15 mL/min/1.73m2. Performed By: #### 2 [id number], [id number], 4578284, 2685930, 1454268, 6886517 #### [facility] [address] [place] [address] BMPon 07-06-2023 Anion gap [Moles/Vol] 5 mmol/L Low 6-16 [facility] Comment on above: Performed By: #### 2 929994, [id number], 8239795, 7398125, 3709987, 0385031 #### [facility] [address] [place] [address] Calcium [Mass/Vol] 8.0 mg/dL Low 8.9-11.1 [facility] Comment on above: Performed By: #### 2 942848, [id number], 0227012, 4012038, 4731644, 7451815 #### [facility] [address] [place] [address] Chloride [Moles/Vol] 109 mmol/L Normal 101-111 [facility] Comment on above: Performed By: #### 2 484029, [id number], 3953052, 2182910, 9846291, 8867441 #### [facility] [address] [place] [address] CO2 [Moles/Vol] 28 mmol/L Normal 21-31 [facility] Comment on above: Performed By: #### 2 241151, 57536758, 0256453, 0653739, 3615879, 9964033 #### [facility] [address] [place] [address] Creatinine [Mass/Vol] 0.7 mg/dL Normal 0.5-1.3 [facility] Comment on above: Performed By: #### 2 138487, 38858544, 1371276, 9140085, 8185566, 1870509 #### [facility] [address] [place] [address] Glucose [Mass/Vol] 91 mg/dL Normal 55-199 [facility] Comment on above: Result Comment: If t his glucose result represents a fasting glucose, interpretation should refer to the following reference range: 55-99 mg/dL Performed By: #### 2 532770, 19524867, 8663637, 3341157, 9004747, 9880042 #### [facility] [address] [place] [address] Potassium [Moles/Vol] 3.9 mmol/L Normal 3.5-5.3 [facility] Comment on above: Performed By: #### 2 295191, 44489564, 2208147, 5924611, 8627157, 4264900 #### [facility] [address] [place] [address] Sodium [Moles/Vol] 138 mmol/L Normal 135-145 [facility] Comment on above: Performed By: #### 2 407002, 88736814, 4888734, 2797565, 3746262, 4235181 #### [facility] [address] [place] [address] Urea nitrogen [Mass/Vol] 12 mg/dL Normal 5-21 [facility] Comment on above: Performed By: #### 2 382644, 65831001, 1890417, 7650841, 7281514, 6362376 #### [facility] [address] [place] [address] Urea nitrogen/Creatinine [Mass ratio] 17 No Units Normal 10-20 [facility] Comment on above: Performed By: #### 2 269295, 87412970, 5228554, 9905932, 0416755, 8797088 #### [facility] [address] [place] [address] CHEMISTRYOrdered By: SYSTEM SYSTEM on 07-06-2023 Anion gap [Moles/Vol] 5 mmol/L Low 6 - 16 mEq/L [facility] [place] [place] Remisol Calcium [Mass/Vol] 8.0 mg/dL Low 8.9 - 11. 1 mg/dL FT Remisol Chloride [Moles/Vol] 109 mmol/L Normal 101 - 1 11 mmol/L [facility] CO2 [Moles/Vol] 28 mmol/L Normal 21 - 31 mmol/L [facility] Creatinine [Mass/Vol] 0.7 mg/dL Normal 0.5 - 1.3 mg/dL [facility] [place] GFR/1.73 sq M.predicted among non-blacks MDRD (S/P/Bld) [Vol rate/Area] 90 mL/min/1.73 m2 Normal >=59mL/min/1 .73 m2 [facility] S Comment on above: Interpretive Data: C hronic kidney disease could be indicated at eGFR's of less than 60 mL/min/1.73m2. Kidney failure is indicated at less than 15 mL/min/1.73m2. Glucose [Mass/Vol] 91 mg/dL Normal 55 - 199 mg/dL [facility] Comment on above: Interpretive Data: I f this glucose result represents a fasting glucose, interpretation should refer to the following reference range: 55-99 mg/dL Potassium [Moles/Vol] 3.9 mmol/L Normal 3.5 - 5.3 mmol/L [facility] Sodium [Moles/Vol] 138 mmol/L Normal 135 - 145 mmol/L [facility] Urea nitrogen [Mass/Vol] 12 mg/dL Normal 5 - 21 mg/dL [facility] Remisol Urea nitrogen/Creatinine [Mass ratio] 17 mg/mg Normal 10 - 20 [facility] Remisol Discharge Note-Nursingon Discharge Note-Nursing HARJIT ASENCIO I :1950 Visit Date:07/02/2023 Inpatient Discharge Instructions Your Care Team Admitting Physician - Noman PATTON DO Consulting Physician - DYLAN MCMAHON, Cody Goff MD, Eb Yeh [facility] Cardio, XXXX Reason for Your Visit [...] mils per day fluid restriction Pharmacy Information [facility] Previously Scheduled Follow-Up Appointments Monday 1:00 PM EDT With: CECILIA MCMAHON, Micheline Morgan Where: [facility] Inpatient Clinical Summaryon 07-06-2023 Inpatient Clinical Summary [address] [address] Clinical Summary Person Information: Name: HARJIT ASENCIO I Age: 73 Years : 1950 Sex: Female PCP: Aravind MCMAHON, Peggy Mcmillan Marital Status: Race: White Ethnicity: Non- or Language: Sierra Leonean Visit Id: Visit Reason: Genitourinary problem; 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 Speciality: Acuity: Enc Type: Observation Med Service: Medical Arrival: 07/02/2023 21:17:31 Discharge: Dispo Type: Admitted as IP to this [facility] Address: [address] [place] [address] [address] [facility] [phone] Provider Notes: Diagnosis: 1:Atrial fibrillation with RVR; [...] MCMAHON, Eb Yeh; DYLAN MCMAHON, Cody Dumont; [facility] Cardio, XXXX Referring Physician: Follow up: With: Address: When: Johan HENRIQUEZ [address] [place] [phone] Business (1) Within 2 weeks Comments: Call for followup appointment With: Address: When: Peggy Nazario [address] [place] [address] Business (1) 07/10/2023 1:00 PM With: Address: When: Micheline BROOKS [facility], [address] [place] [address] Business (1) Comments: Call for followup appointment re: the indwelling Robles catheter. Type Location Start [facility] Office Visit [facility] [place] Silva 11/22/2023 1:00 PM 11/22/2023 1:15 PM Confirmed Patient Education Information: CV - Cardiovascular Discharge Instructions (Custom) [facility] Inpatient Patient Summaryon 07-06-2023 Inpatient Patient Summary [address] [address] Patient Discharge Instructions PERSON INFORMATION Name: HARJIT [...] Follow up: With: Address: When: Johan HENRIQUEZ [address] [place] [id number] [phone] Business (1) Within 2 weeks Comments: Call for followup appointment With: Address: When: Peggy Nazario [address] [facility] [place] [address] Business (1) 07/10/2023 1:00 PM With: Address: When: Micheline BROOKS [facility], [address], [place] [phone] Business (1) Comments: Call for followup appointment re: the indwelling Robles catheter. In the event that this physician does not participate in your insurance network, please consult with your insurance company to find a nearby participating provider. Type Location [facility] Office Visit [facility] [place] Silva 11/22/2023 1:00 PM 11/22/2023 1:15 PM Confirmed Comment: ELIF Ruiz JOYCE I, have received the attached patient education materials/instruction s and have verbalized understanding: Patient Signature Date Clinican/Nurse Signature Date HERE ARE THE MEDICATION CHANGES THAT OCCURRED DURING YOUR HOSPITAL STAY New Medications [id number], [address] [facility], [place] [id number], [phone] apixaban (Eliquis 5 mg oral tablet) 1 [...] a day. Refills (more content not included)... [facility] Interdisciplinary Note - Tico e Manageron 07-06-2023 Interdisciplinary Note - Application Processor Pt is awake and alert in bed, previously rounded with Dr. Serrato. Await cardiology to see and anticipate DC home later today. Declines any concerrns or DC needs. Brilinta was priced out yesterday $183 and coupon provided. . PCP verified and insurance information reviewed and DME discussed. Contact information provided and white board updated. [facility] Comment on above: Result Comment: Elec tronically Signed By: Martín ALFORD, Radha\.zak\Date and Time Signed: 07/06/23 12:06 EST Monitor Recordon 07-06-2023 Monitor Record [id number]# 1.00TIFF [facility] Monitor Record [id number]# 1.00TIFF [facility] Monitor Record [id number]# 1.00TIFF Normal [facility] Progress Note-Physicianon Progress Note-Physician Assessment/Plan 73-year-old female with history of ureteral stricture with previous dilations, anxiety disorder presented with complaints of urinary hesitancy, constipation, cough and shortness of breath and was admitted to [facility] with acute paroxysmal atrial fibrillation [...] IV Cardizem drip. Continue on Coreg, digoxin. Perioperative Manager debating on starting patient on amiodarone. Eliquis to start in 4 days after cardiac catheterization. Ordered: [facility] Care/Day Moderate 35 Minutes 57161 2. Acute systolic congestive heart failure (I50.21: Acute systolic (congestive) heart failure) Acute systolic congestive heart failure?present on admission. Seen by property controller and underwent cardiac catheterization that showed mild coronary artery disease. Also shows severe mitral regurgitation and tricuspid regurgitation with ejection fraction of 30 to 35%. Continue on aspirin, Coreg, losartan and Lasix. Ordered: [facility] Care/Day Moderate 35 Minutes 48697 3. Severe mitral regurgitation (I34.0: Nonrheumatic mitral (valve) insufficiency) As seen on cardiac catheterization. Patient will follow-up with property controller for HAROON and then valvular repair. Perioperative Manager also considering transferring patient to or [facility]. Ordered: [facility] Care/Day Moderate 35 Minutes 45672 4. Elevated troponin (R79.89: Other specified abnormal findings of blood chemistry) Secondary to type II non-ST segment elevation myocardial infarction from above and mild coronary artery disease.. Seen by property controller and underwent cardiac catheterization that showed mild coronary artery disease. Continue on aspirin, Lipitor, and Coreg. Ordered: [facility] Care/Day Moderate 35 Minutes 24992 5. Mild coronary artery disease (I25.10: Atherosclerotic heart disease of [place] coronary artery without angina pectoris) As seen on cardiac catheterization on 07/05/2023. Continue on Lipitor and aspirin. Ordered: [facility] Care/Day Moderate 35 Minutes 16453 6. anxiety (F41.9: Anxiety disorder, unspecified) Increase [...] deep vein thrombosis (DVT) prophylaxis (Z79.899: Other it consultant (current) drug therapy) SCDs. Eliquis to resume in 4 days. Disposition: Home soon today if heart rate is under good control with plans to follow-up with property controller and urologist as outpatient. However if heart rate is still elevated then we will call [facility] or [facility] to see if we can transfer patient for valve repair/replacement. I discussed the diagnosis and plan of care with the patient at the bedside. Moderate level of MDM based on addressing above issues. This documentation was transcribed using voice recognition software. Several attempts were made to ensure accuracy. However inadvertent computerized personal injury specialist errors may be present. Nahid Serrato. [...] Panel eGF (more content not included)... Normal [facility] Comment on above: Result Comment: [...] she is going to get to the [facility] or [facility] for mitral valve/tricuspid valve surgery. Despite all [...] transfer the patient directly to the [facility] or [facility] given her logistic challenges with getting a [...] artery disease (I25.10: Atherosclerotic heart disease of [place] coronary artery without angina pectoris) 6. Pleural effusion (J90: Pleural effusion, not elsewhere classified) 7. Urinary hesitancy (R39.11: Hesitancy of micturition) 8. Other urethral stricture, female (N35.82: Oth (more content not included)... Normal [facility] Comment on above: Result Comment: Elec tronically Signed By: MARTINEZ MCMAHON, Johan Patino\.zak\Date and Time Signed: 07/06/23 09:22 EST eGFRon 07-06-2023 GFR/1.73 sq M.predicted among non-blacks MDRD (S/P/Bld) [Vol rate/Area] 90 mL/min/1.73 m2 Normal >=59 [facility] Comment on above: Order Comment: Order Added by Discern Expert. Result Comment: Gravel Inspector luis kidney disease could be indicated at eGFR's of less than 60 mL/min/1.73m2. Kidney failure is indicated at less than 15 mL/min/1.73m2. Performed By: #### 2 [id number], 77042466, 9661554, 1832593, 9104876, 6438328 #### [facility] [address] [place] [address] BMPon 07-05-2023 Anion gap [Moles/Vol] 9 mmol/L Normal 6-16 [facility] Comment on above: Performed By: #### 1 9006020, 7772540 ####[facility] [address] [place] [address] Calcium [Mass/Vol] 8.2 mg/dL Low 8.9-11.1 [facility] Comment on above: Performed By: #### 1 6743472, 7247821 ####[facility] [address] [place] [address] Chloride [Moles/Vol] 105 mmol/L Normal 101-111 [facility] Comment on above: Performed By: #### 1 0789616, 3164573 ####[facility] [address] [place] [address] CO2 [Moles/Vol] 27 mmol/L Normal 21-31 [facility] Comment on above: Performed By: #### 1 3047013, 1337830 ####[facility] [address] [place] [address] Creatinine [Mass/Vol] 0.7 mg/dL Normal 0.5-1.3 [facility] Comment on above: Performed By: #### 1 3469288, 2902170 ####[facility] [address] [place] [address] Glucose [Mass/Vol] 115 mg/dL Normal 55-199 [facility] Comment on above: Result Comment: If t his glucose result represents a fasting glucose, interpretation should refer to the following reference range: 55-99 mg/dL Performed By: #### 1 [id number], 7579014 ####[facility] [address] [place] [address] Potassium [Moles/Vol] 4.3 mmol/L Normal 3.5-5.3 [facility] Comment on above: Performed By: #### 1 9272664, 6362207 ####[facility] [address] [place] [address] Sodium [Moles/Vol] 137 mmol/L Normal 135-145 [facility] Comment on above: Performed By: #### 1 4124603, 9902169 ####[facility] [address] [place] [address] Urea nitrogen [Mass/Vol] 13 mg/dL Normal 5-21 [facility] Comment on above: Performed By: #### 1 3929282, 5181324 ####[facility] [address] [place] [address] Urea nitrogen/Creatinine [Mass ratio] 19 No Units Normal 10-20 [facility] Comment on above: Performed By: #### 1 8654993, 8244120 ####[facility] [address] [place] [address] CHEMISTRYOrdered By: SYSTEM SYSTEM on 07-05-2023 Anion gap [Moles/Vol] 9 mmol/L Normal 6 - 16 mEq/L [facility] [place] [place] Remisol Calcium [Mass/Vol] 8.2 mg/dL Low 8.9 - 11. 1 mg/dL [facility]isol Chloride [Moles/Vol] 105 mmol/L Normal 101 - 1 11 mmol/L [facility] Remisol CO2 [Moles/Vol] 27 mmol/L Normal 21 - 31 mmol/L [facility] Remisol Creatinine [Mass/Vol] 0.7 mg/dL Normal 0.5 - 1.3 mg/dL [facility] Remisol GFR/1.73 sq M.predicted among non-blacks MDRD (S/P/Bld) [Vol rate/Area] 90 mL/min/1.73 m2 Normal >=59mL/min/1 .73 m2 [facility] Comment on above: Interpretive Data: C hronic kidney disease could be indicated at eGFR's of less than 60 mL/min/1.73m2. Kidney failure is indicated at less than 15 mL/min/1.73m2. Glucose [Mass/Vol] 115 mg/dL Normal 55 - 199 mg/dL [facility] Comment on above: Interpretive Data: I f this glucose result represents a fasting glucose, interpretation should refer to the following reference range: 55-99 mg/dL Potassium [Moles/Vol] 4.3 mmol/L Normal 3.5 - 5.3 mmol/L [facility] Remisol Sodium [Moles/Vol] 137 mmol/L Normal 135 - 145 mmol/L [facility] Remisol Urea nitrogen [Mass/Vol] 13 mg/dL Normal 5 - 21 mg/dL [facility] Remisol Urea nitrogen/Creatinine [Mass ratio] 19 mg/mg Normal 10 - 20 [facility] CHEMISTRYOrdered By: Lab ROP User on 07-05-2023 Glucose [Mass/Vol] 79 mg/dL Normal 55 - 99 mg/dL [facility] POC Subsection Comment on above: Result Comment: Neli PIÑA POC Username NIKHIL PAULSON Invalid Interpretation Code [facility] POC Subsection Sodium [Moles/Vol] 844631991515 mmol/L Invalid Interpretation Code [facility] POC Subsection Sodium [Moles/Vol] 939026732 mmol/L Invalid Interpretation Code [facility] P[facility] Subsection Capillary Glucose POCon 06-15 Glucose [Mass/Vol] 79 mg/dL Normal 55-99 [facility] Comment on above: Result Comment: Neli PIÑA Performed By: #### 1 [id number] #### [facility] [address] [place] [address] Cardiovascular Reporton 06-15 Cardiovascular Report [id number]# 1.00TIFF Normal [facility] Monitor Recordon 07-05-2023 Monitor Record [id number]# 1.00TIFF Normal [facility] Monitor Record [id number]# 1.00TIFF Normal [facility] Monitor Record [id number]# 1.00TIFF Normal [facility] Monitor Record [id number]# 1.00TIFF Normal [facility] Monitor Record [id number]# 1.00TIFF Normal [facility] Operative Reporton Operative Report SURGERY DATE: 07/05/2023 [...] an exchange length J-wire. Next a 4 Grenadian sheath was placed without complications and flushed with heparinized saline. Next the right femoral vein was accessed with a single anterior stick of a Cook needle followed by placement of a short J-wire under fluoroscopic guidance. Next a 7 [place] sheath was placed without complications and flushed with heparinized saline. Next a balloon tip [place] catheter was advanced under fluoroscopic guidance into [...] by thermal was 2.57. Next a 4 [place]adian angled pigtail catheter was easily advanced into the left ventricular chamber. AO saturation was 84%. PA saturation was 46%. Simultaneous LV and wedge pressure demonstrated a large V wave indicating severe mitral regurgitation. Simultaneous LV and RV pressures demonstrated no overt evidence of pericardial constriction although the patient is in atrial fibrillation making that somewhat problematic. [place] catheter was then removed. The LV angiogram performed in the 30 degree right anterior oblique position demonstrated severe global LV dysfunction with an ejection fraction around 25-30%. There was severe mitral regurgitation which completely filled the left atrium after the second beat. There was no significant gradient seen on pullback. Next the pigtail catheter was exchanged over a wire for a 4 Gren[place] JL5 catheter. This was easily engaged into [...] exchanged over a wire for a 4 Gren[place] 3DRC catheter. This was easily engaged into the right coronary artery. There was no dampening or ventricularization upon engagement. Right coronary artery: The right coronary artery is a moderate size dominant vesse (more content not included)... Normal [facility] Comment on above: Result Comment: Elec tronically Signed By: MARTINEZ MCMAHON, Johan Ribeiro.zak\Date and Time Signed: 07/05/23 11:46 EST Progress Note-Nurseon 2022 Progress Note-Nurse landscaping and groundskeeping laborer made aware patient last dose of lovenox was given on 07/04/23 @ 2345. Normal [facility] Progress Note-Physicianon Progress Note-Physician Assessment/Plan 73-year-old female with history of ureteral stricture with previous dilations, anxiety disorder presented with complaints of urinary hesitancy, constipation, cough and shortness of breath and was admitted to [facility] with acute paroxysmal atrial fibrillation [...] date 07/06/23 9:00:00 EST, 07/05/23 11:13:00 EST [facility] Care/Day Moderate 35 Minutes 41087 2. Acute systolic congestive heart failure (I50.21: Acute systolic (congestive) heart failure) Acute systolic congestive heart failure?present on admission. Seen by property controller. She is status post cardiac catheterization that showed mild coronary artery disease. Also showed severe mitral regurgitation and tricuspid regurgitation.. Ejection fraction of 30 to 35%. Continue on aspirin, Coreg, losartan, Lasix. Ordered: [facility] Care/Day Moderate 35 Minutes 44066 3. Severe mitral regurgitation (I34.0: Nonrheumatic mitral (valve) insufficiency) Severe mitral regurgitation?seen on cardiac catheterization. Follow-up with property controller as outpatient for HAROON and then valvular repair. Ordered: [facility] Care/Day Moderate 35 Minutes 73482 4. Elevated troponin (R79.89: Other specified abnormal findings of blood chemistry) Secondary to type II non-ST segment elevation myocardial infarction from above and mild coronary artery disease.. Seen by property controller and underwent cardiac catheterization that showed mild coronary artery disease. Continue on aspirin, Lipitor, and Coreg. Ordered: furosemide, 40 mg = 1 tab(s), Tab, Oral, Daily, Routine, Start date 07/06/23 9:00:00 EST, 07/05/23 11:13:00 EST [facility] Care/Day Moderate 35 Minutes 14746 5. Mild coronary artery disease (I25.10: Atherosclerotic heart disease of [place] coronary artery without angina pectoris) As seen on cardiac catheterization on 07/06/2023. Continue on Lipitor and aspirin. Ordered: [facility] Care/Day Moderate 35 Minutes 99807 6. Pleural effusion (J90: Pleural effusion, not [...] deep vein thrombosis (DVT) prophylaxis (Z79.899: Other it consultant (current) drug therapy) Lovenox. Disposition: Home in a.m. to follow-up with property controller and urologist. I discussed the diagnosis and plan of care with the patient at the bedside. Moderate level of MDM based on addressing above issues. This documentation was transcribed using voice recognition software. Several attempts were made to ensure accuracy. However inadvertent computerized personal injury specialist errors may be present. Nahid Serrato. Hospitalist. Orders: Basic Metabolic Panel Basic Metabolic Panel Referral to [facility] Subjective Seen and examined. Offers no complaints today. Completed cardiac catheterization today. Offers no new complaints. Objective Vitals & Measurements T: 36.7 ?C(Axillary) TMIN: 36.5 ?C(Oral) TMAX: 36.9 ?C(Axillary) HR: 89(Monitored) BP: 102/64 SpO2: 97% HT: 165.10 cm WT: 58.4 kg Intake & Output This (more content not included)... Normal [facility] Comment on above: Result Comment: Elec tronically Signed By: JAZMÍN MCMAHON, Nahid\.br\Date and Time Signed: 07/05/23 11:19 EST eGFRon 07-05-2023 GFR/1.73 sq M.predicted among non-blacks MDRD (S/P/Bld) [Vol rate/Area] 90 mL/min/1.73 m2 Normal >=59 [facility] Comment on above: Order Comment: Order added by Discern Expert. Result Comment: Gravel Inspector luis kidney disease could be indicated at eGFR's of less than 60 mL/min/1.73m2. Kidney failure is indicated at less than 15 mL/min/1.73m2. Performed By: #### 1 [id number], [id number] ####[facility] [address] [place] [address] Monitor Recordon 07-04-2023 Monitor Record [id number]# 1.00TIFF Normal [facility] Monitor Record [id number]# 1.00TIFF Normal [facility] Monitor Record [id number] 1 [id number]# 1.00TIFF Normal [facility] Monitor Record [id number] 1 [id number]# 1.00TIFF Normal [facility] Patient Education - Texton 1 09-03-2022 Patient Education - Text Normal [facility] Progress Note-Physicianon Progress Note-Physician Assessment/Plan 73-year-old female with history of ureteral stricture with previous dilations, anxiety disorder presented with complaints of urinary hesitancy, constipation, cough and shortness of breath and was admitted to [facility] with acute paroxysmal atrial fibrillation [...] BID, # 60 tab(s), Refills(s) 0, Pharmacy: [facility][id number], 165, cm, 07/02/23 21:30:00 EST, Height/Length Dosing, 55.7, kg, 07/02/23 21:30:00 EST, Weight Dosing Echo Transthoracic Complete [facility] Hospital Care/Day Moderate 35 Minutes 23090 2. Acute systolic congestive heart failure (I50.21: Acute systolic (congestive) heart failure) Acute systolic congestive heart failure?present on admission. Cardiology is following. Ejection fraction of 30 to 35%. Cardiology is planning on cardiac catheterization for ischemic work-up in AM. Meanwhile continue on aspirin, Coreg, losartan. We will verify with property controller about Lasix. Ordered: [facility] Care/Day Moderate 35 Minutes 69293 3. Elevated troponin (R79.89: Other specified abnormal findings of blood chemistry) Secondary to type II non-ST segment elevation myocardial infarction from above. Echocardiogram shows ejection fraction of 30 to 35%. Perioperative Manager following with plans for cardiac catheterization in AM. Meanwhile continue on aspirin and Coreg. Ordered: Echo Transthoracic Complete [facility] Care/Day Moderate 35 Minutes 00552 4. Pleural effusion (J90: Pleural effusion, not elsewhere classified) Small pleural effusion?secondary to acute systolic congestive heart failure. Supportive care. Lasix as needed. Ordered: [facility] Care/Day Moderate 35 Minutes 77426 5. Urinary hesitancy (R39.11: Hesitancy of micturition) Secondary to urethral stricture and urinary retention. She is status post Robles catheter placement. Urology consult reviewed by me. I appreciate and agreed recommendations. Patient will discharge with Robles catheter and leg bag to follow-up with urologist as outpatient. Ordered: [facility] Care/Day Moderate 35 Minutes 10945 6. Other urethral stricture, female (N35.82: Other [...] Daily, NOW, Start date 07/03/23 11:16:00 EST [facility] Care/Day Moderate 35 Minutes 82537 9. On deep vein thrombosis (DVT) prophylaxis [...] made to ensure accuracy. However inadvertent computerized personal injury specialist errors may be present. Nahid Serrato. [...] -- 176.8 (more content not included)... Normal [facility] Comment on above: Result Comment: [...] deep vein thrombosis (DVT) prophylaxis (Z79.899: Other it consultant (current) drug therapy) Urinary retention (R33.9: Retention [...] PRN f (more content not included)... Normal [facility] Comment on above: Result Comment: [...] Sensitivity Troponin I Instructions For Use, Marlys [place], March 2018) TSH Qn 3.83 m[IU]/L Normal 0.34 - 5.60 mcIU/mL [facility] Remisol CHEMISTRYOrdered By: Dulce Maria Correa on 07-03-2023 HbA1c (Bld) [Mass fraction] 5.5 % Normal <=5.9% [facility] Consultation Noteon 07-03-20 Consultation Note [...] day(s), # 14 cap(s), Refills(s) 0, Pharmacy: [facility] #[id number], 165, cm, 06/30/23 19:37:00 EST, Height/Length Dosing, 55.7, kg, 06/30/23 19:37:00 EST, Weight Dosing Cipro 500 mg Tab: 500 mg = 1 tab(s), Oral, As Directed, Patient to take 1 tab the day before procedure and the 2nd tab the day of procedure once completed, # 2 tab(s), Refills(s) 0, Pharmacy: [facility] #[id number], 165, cm, 04/26/23 15:23:00 EDT, Height/Length Do... Estrace 0.1 mg/g Cream: 0.5 gm, Vaginal, MonFri, 42.5 gm, Refill(s) 6 Zofran ODT 4 mg Tab-Dis: 4 mg = 1 tab(s), Oral, q8hr, # 12 tab(s), Refills(s) 0, Pharmacy: [facility] #[id number], 165, cm, 06/30/23 19:37:00 EST, Height/Length Dosing, 55.7, kg, 06/30/23 19:37:00 EST, Weight Dosing Documented Medications Documented Ativan 0.5 mg Tab: 0.5 mg = 1 tab(s), Oral, TID, PRN as needed for anxiety, Refills(s) 0 Problem list: All Problems acid reflux / SNOMED CT 602603630 / Confirmed anxiety / SNOMED CT 78144331 / Confirmed Injury of nose / SNOMED CT 58067672 / Confirmed Superficial laceration of face / SNOMED CT 300305993 / Confirmed Acute gastroenteritis / SNOMED CT 844368473 / Confirmed Other urethral stricture, female / SNOMED CT 731749569 / Confirmed Nocturia / SNOMED CT 766503780 / Confirmed Urinary hesitancy / SNOMED CT 678459070 / Confirmed Former smoker / SNOMED CT 69878772 / Confirmed Urinary frequency / SNOMED CT 140945081 / Confirmed Feeling of incomplete bladder emptying / SNOMED CT 429435772 / Confirmed Urinary urgency / SNOMED CT 685654250 / Confirmed Dysuria / SNOMED CT 99443360 / Confirmed Suprapubic pain / SNOMED CT 756943092 / Confirmed Poor urinary stream / SNOMED CT 777609549 / Confirmed Cystocele with prolapse / SNOMED CT 378002709 / Confirmed Stranguria / SNOMED CT 863974361 / Confirmed History of urethral stricture / SNOMED CT 586948074 / Confirmed Weak urine stream / SNOMED CT 677054222 / Confirmed Atrophic vaginitis / SNOMED CT 79831276 / Confirmed Renal lesion / SNOMED CT 1246769162 / Confirmed Histories Past Medical History: Active acid reflux (558100978) anxiety (36296296) Acute gastroenteritis (371738745) Family History: Heart disease Father Diabetes mellitus type 2 Mother Procedure history: Cystourethroscopy with dilation of urethral stricture (112095437) on 10/25/2022 at 72 Years. Cystoscopy/UD (54299382) on 02/23/2021 at 70 Years. Dilation of urethra (12406077) on 02/01/2019 at 68 Years. Cysto/ UD (369996747) on 10/10/2017 at 67 Years. Hysterectomy. colon resection. Corneal implant (597683185). Tonsillectomy (806731741). Dilation of urethra (26418539). Comments: 08/09/2019 13:23 EST - Darshan SALAS, Tim Velazco (more content not included)... Normal [facility] Comment on above: Result Comment: Elec tronically Signed By: DYLAN MCMAHON, Cody Dumont\.br\Date and Time Signed: 07/03/23 19:12 EST ED Clinical Summaryon 2022 ED Clinical Summary [place] [id number] ED Clinical Summary Person Information Name: HARJIT ASENCIO I [facility] Age: 73 Years : 1950 Sex: Female Language: Sierra Leonean PCP: Aravind MCMAHON, Peggy Mcmillan Marital Status: Visit Id: Visit Reason: Genitourinary problem; 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 Speciality: Acuity: 3 Enc Type: Observation Med Service: Emergency Arrival: 07/02/2023 21:17:31 Discharge: LOS: 000 05:33 Checkin: 07/02/2023 21:17:31 Checkout: 07/03/2023 02:50:11 Dispo Type: Admitted as IP to this [facility] EVENTS: Event Name Event Status Request Date/Time [...] 07/03/2023 02:36:18 07/03/2023 02:36:18 07/03/2023 02:36:19 ADDRESS: [address] [place] [address] [address] [facility] [id number] PHYS DOC NOTES: MEDICAL INFORMATION: Prescriptions Given: [...] RVR; 3:New onset a-fib; 4:Elevated troponin Normal [facility] ED Note-Physicianon 07-03-20 23 ED Note-Physician Basic Information Time Seen: Layton [...] and Complexity of Problems Differential Diagnosis: [] [facility] Data External documents reviewed: [] My [...] 0.9% intrave (more content not included)... Normal [facility] Comment on above: Result Comment: Elec tronically Signed By: Yvette Vasquez, Layton Cazares\.br\Date and Time Signed: 07/03/23 08:17 EST ED Patient Education Noteon 07-03-2023 ED Patient Education Note Normal [facility] ED Patient Summaryon 023 ED Patient Summary [address] [address] Patient Discharge Instructions Person Information Name: HARJIT ASENCIO I Age: 73 Years Arrival Date: 07/02/2023 21:17:31 Discharge Diagnosis: 1:Urinary hesitancy; 2:Atrial fibrillation with RVR; 3:New onset a-fib; 4:Elevated troponin Primary Care Physician: Peggy Nazario MD Provider Information Primary Provider: Layton Carwford M.D. Advanced Service Attendant Cafeteria:None The exam and treatment you received in the Emergency Department were for an urgent problem and are not intended as complete care. It is important that you follow up with a doctor, nurse practitioner, or physician?s phys assistant for ongoing care. If your symptoms [...] opioids can be used to help relieve yklxfcgm-rd-qjexea pain and are often prescribed following a [...] be struggling with addiction, tell your health palliative care nurse and ask for guidance or call SAM[employer]?S National Helpline at 0-175-709-HELP. v Source: [place] Department of Health and Human Services/Center for Disease Control & Prevention [facility] (more content not included)... Normal [facility] Hep Func Panelon 07-03-2023 Albumin [Mass/Vol] 3.8 g/dL Normal 3.3-5.0 [facility] Comment on above: Performed By: #### 1 [id number], 2509666, 6139481, 2113141, 3822705, 48937407, 1611240 ####[facility] [address] [place] [address] Albumin/Globulin (S) [Mass conc ratio] 1.3 Normal 1.1-2.2 [facility] Comment on above: Performed By: #### 1 0839674, 2689450, 2048226, 7356737, 9335510, 94525084, 2279445 ####[facility] [address] [place] [address] ALP [Catalytic activity/Vol] 58 Int._Unit/L Normal 21-98 [facility] Comment on above: Performed By: #### 1 2328791, 8001525, 6217796, 9799643, 4000911, 61608598, 8433524 ####[facility] [address] [place] [address] ALT No additional P-5'-P [Catalytic activity/Vol] 66 Int._Unit/L High 6-46 [facility] Comment on above: Performed By: #### 1 1403893, 5939154, 1755508, 0719504, 4271561, 80849166, 0620524 ####[facility] [address] [place] [address] AST [Catalytic activity/Vol] 81 Int._Unit/L High 5-43 [facility] Comment on above: Performed By: #### 1 5572238, 4415491, 3017614, 7372014, 4531757, 42726844, 2648517 ####[facility] [address] [place] [address] Bilirubin [Mass/Vol] 0.5 mg/dL Normal 0.0-1.1 [facility] Comment on above: Performed By: #### 1 9498211, 9865065, 7456604, 4658836, 1510572, 40701769, 1008923 ####[facility] [address] [place] [address] Bilirubin.direct [Mass/Vol] 0.1 mg/dL Normal 0.1-0.4 [facility] Comment on above: Performed By: #### 1 9391777, 3326259, 6150783, 3548852, 5652478, 52435867, 4677739 ####[facility] [address] [place] [address] Bilirubin.indirect [Mass or moles/Vol] 0.4 mg/dL Normal 0.1-0.9 [facility] Comment on above: Performed By: #### 1 3256892, 4889435, 8846743, 3114472, 7860541, 62404114, 4974090 ####[facility] [address] [place] [address] Globulin (S) [Mass/Vol] 2.9 g/dL Normal 1.4-4.0 [facility] Comment on above: Performed By: #### 1 0249535, 7287024, 5221222, 4267201, 3792939, 69116831, 7561765 ####[facility] [address] [place] [address] Protein [Mass/Vol] 6.7 g/dL Normal 6.0-7.8 [facility] Comment on above: Performed By: #### 1 7686964, 2469632, 0428243, 2935637, 3047499, 17765710, 0356144 ####[facility] [address] [place] [address] YuvB9bej 07-03-2023 HbA1c (Bld) [Mass fraction] 5.5 % Normal <=5.9 [facility] Comment on above: Performed By: #### 2 098621, 67017878, 9229779, 1772121, 6390686, 5666635 #### [facility] [address] [place] [address] Interdisciplinary Note - Tico e Manageron 07-03-2023 Interdisciplinary Note - Application Processor CRM to room to discuss DC planning. [...] at DC. Patient was provided CRM contact, cortez board updated. Anticipated DC TBD. CRM following Normal [facility] Comment on above: Result Comment: Elec tronically Signed By: Brigitte Nazario\.br\Date and Time Signed: 07/03/23 13:05 EST Lipid Panelon 07-03-2023 Cholesterol [Mass/Vol] 145 mg/dL Normal 120-200 [facility] Comment on above: Performed By: #### 2 601730, 55361745, 6895693, 0660631, 4449481, 9583226 #### [facility] [address] [place] [address] Cholesterol in HDL [Mass/Vol] 43 mg/dL Invalid Interpretation Code [facility] Comment on above: Result Comment: HDL > or equal to 60 mg/dL: Low cardiovascular risk HDL < 40 mg/dL : High cardiovascular risk Performed By: #### 2 908592, 62019729, 4135807, 4969460, 5744149, 0985632 #### [facility] [address] [place] [address] Cholesterol in LDL [Mass/Vol] 99 mg/dL Normal <=129 [facility] Comment on above: Performed By: #### 2 688964, 64004660, 1768267, 2682233, 1504119, 6541107 #### [facility] [address] [place] [address] Cholesterol in VLDL [Mass/Vol] 17 mg/dL Normal 7-40 [facility] Comment on above: Performed By: #### 2 885542, 51607474, 7680798, 1298605, 6994077, 0255633 #### [facility] [address] [place] [address] Triglyceride [Mass/Vol] 85 mg/dL Normal <=149 [facility] Comment on above: Performed By: #### 2 458433, 54110142, 7226924, 3771934, 3311335, 9752625 #### [facility] [address] [place] [address] Magnesiumon 07-03-2023 Magnesium [Mass/Vol] 2.0 mg/dL Normal 1.3-2.4 [facility] Comment on above: Performed By: #### 1 2358709, 8150312, 2603809, 3054418, 7956831, 48998762, 0542210 ####[facility] [address] [place] [address] Message from Medicareon 06-15 Message from Medicare [id number]# 1.00TIFF Normal [facility] Monitor Recordon 07-03-2023 Monitor Record [id number]# 1.00TIFF Normal [facility] Monitor Record [id number]# 1.00TIFF Normal [facility] Monitor Record [id number]# 1.00TIFF Normal [facility] Progress Note-Physicianon Progress Note-Physician Assessment/Plan [...] I ordered echocardiogram. Ordered: Echo Transthoracic Complete [facility] Care/Day Moderate 35 Minutes 89881 2. Elevated troponin (R79.89: Other specified abnormal findings of blood chemistry) Secondary to type II non-ST segment elevation myocardial infarction from above. Echocardiogram ordered. Cardiology consult pending. Continue on aspirin. Ordered: Echo Transthoracic Complete [facility] Care/Day Moderate 35 Minutes 30310 3. Urinary hesitancy (R39.11: Hesitancy of micturition) Secondary to urethral stricture. Patient is status post Robles catheter placement for urinary retention. She will follow-up with urologist as outpatient. Ordered: [facility] Care/Day Moderate 35 Minutes 57032 4. Constipation (K59.00: Constipation, unspecified) Started patient on MiraLAX and lactulose. Ordered: lactulose, 20 gram = 30 mL, Syrup, Oral, Once, Stop date 07/03/23 12:00:00 EST, Routine, Start date 07/03/23 12:00:00 EST, 07/03/23 12:00:00 EST polyethylene glycol 3350, 17 gram = 1 EA, Powder-Recon, Oral, Daily, Routine, Start date 07/03/23 12:00:00 EST, 07/03/23 12:00:00 EST [facility] Care/Day Moderate 35 Minutes 17168 5. Other urethral stricture, female (N35.82: Other [...] made to ensure accuracy. However inadvertent computerized personal injury specialist errors may be present. Nahid Serrato. [...] 22:10:00) Lymph Auto: 15.3 % (07/02/23 22:10:00) Stephenson Auto: 7.7 % (07/02/23:10:00) Eos Auto: 0 % (07/02/23 22:10:00) Baso (more content not included)... Normal [facility] Comment on above: Result Comment: Elec tronically Signed By: JAZMÍN MCMAHON, Nahid\.br\Date and Time Signed: 07/03/23 10:57 EST TSH With T4fr Reflexon 07-03 TSH Qn 3.83 m[IU]/L Normal 0.34-5.60 [facility] Comment on above: Performed By: #### 2 256743, 60428928, 1737909, 8884913, 6519646, 8234911 #### [facility] [address] [place] [address] Troponinon 07-03-2023 Troponin I.cardiac [Mass/Vol] 27.10 pg/mL Normal 10.10-27.10 [facility] Comment on above: Result Comment: The 95% CI (Confidence Interval) PPV (Positive Predictive Value) for myocardial infarction in females is 38 pg/mL, in males 51 pg/mL. The results should be used in conjunction with clinical conditions of myocardial infarction. (Access High Sensitivity Troponin I Instructions For Use, Marlys [place], March 2018) Performed By: #### 2 085063, 54134412, 9055008, 1742688, 9461166, 7761451 #### [facility] [address] [place] [address] Troponin 0 Hr.on 07-03-2023 Troponin I.cardiac [Mass/Vol] 27.30 pg/mL High 10.10-27.10 [facility] Comment on above: Result Comment: The 95% CI (Confidence Interval) PPV (Positive Predictive Value) for myocardial infarction in females is 38 pg/mL, in males 51 pg/mL. The results should be used in conjunction with clinical conditions of myocardial infarction. (Access High Sensitivity Troponin I Instructions For Use, [employer], March 2018) Performed By: #### 1 9424460, 8454558, 4914437, 6370802, 9855379, 81156830, 7103173 ####[facility] [address] [place] [address] Troponin 3 Hr.Ordered By: FasterPants on 07-03-2023 Troponin I.cardiac [Mass/Vol] 27.70 pg/mL High 10.10-27.10 [facility] Comment on above: Interpretive Data: T he 95% CI (Confidence Interval) PPV (Positive Predictive Value) for myocardial infarction in females is 38 pg/mL, in males 51 pg/mL. The results should be used in conjunction with clinical conditions of myocardial infarction. (Access High Sensitivity Troponin I Instructions For Use, [employer], March 2018) Result Comment: The 95% CI (Confidence Interval) PPV (Positive Predictive Value) for myocardial infarction in females is 38 pg/mL, in males 51 pg/mL. The results should be used in conjunction with clinical conditions of myocardial infarction. (Access High Sensitivity Troponin I Instructions For Use, [employer], March 2018) Performed By: #### 2 998465, 23174977, 9980253, 7049710, 3925478, 9168153 #### [facility] [address] [place] [address] XR Chest Single Viewon 07-03 XR Chest [...] mGy = na DAP = na Normal [facility] Auto Diffon 07-02-2023 Basophils/100 WBC (Bld) 0.3 % Normal 0.0-2.0 [facility] Comment on above: Order Comment: Order Added by Discern Expert. Performed By: #### 1 4819834, 8742601, 4525634, 3329407, 1300476, 95912255, 7441708 ####[place] [place] [address] Basophils/Leukocytes Auto (Bld) [Pure # fraction] 0.0 E9/L Normal 0.0-0.2 [facility] Comment on above: Order Comment: Order Added by Discern Expert. Performed By: #### 1 0155546, 9725177, 1293869, 5800844, 8907524, 94694177, 3119498 ####[facility] [address] [place] [address] Eosinophils/100 WBC (Bld) 0.0 % Normal 0.0-8.0 [facility] Comment on above: Order Comment: Order Added by Discern Expert. Performed By: #### 1 6593700, 3118227, 7111224, 2175192, 1568845, 94766157, 1822091 ####[facility] [address] [place] [address] Eosinophils/Leukocyte s Auto (Bld) [Pure # fraction] 0.0 E9/L Normal 0.0-0.5 [facility] Comment on above: Order Comment: Order Added by Discern Expert. Performed By: #### 1 5353398, 7859842, 9909679, 0549847, 1393097, 79903820, 6129965 ####[facility] [address] [place] [address] Lymphocytes/100 WBC (Bld) 15.3 % Normal 14.0-50.0 [facility] Comment on above: Order Comment: Order Added by Valeria Expert. Performed By: #### 1 2267550, 1141031, 8505848, 1401932, 3060949, 20472307, 3159323 ####[facility] [address] [place] [address] Lymphocytes/Leukocyte s Auto (Bld) [Pure # fraction] 0.9 E9/L Low 1.0-4.0 [facility] Comment on above: Order Comment: Order Added by Valeria Expert. Performed By: #### 1 7768559, 4112622, 3807357, 9598389, 7663240, 14077322, 0811804 ####[facility] [address] [place] [address] Monocytes/100 WBC (Bld) 7.7 % Normal 4.0-14.0 [facility] Comment on above: Order Comment: Order Added by aVleria Expert. Performed By: #### 1 8373780, 5396063, 8014893, 0097106, 4331073, 11307548, 6840566 ####[facility] [address] [place] [address] Monocytes/Leukocytes Auto (Bld) [Pure # fraction] 0.5 E9/L Normal 0.2-1.0 [facility] Comment on above: Order Comment: Order Added by Valeria Expert. Performed By: #### 1 2480153, 4310938, 5994621, 3414957, 2179649, 99832945, 5960022 ####[facility] [address] [place] [address] Neutrophils/100 WBC (Bld) 76.7 % High 36.0-75.0 [facility] Comment on above: Order Comment: Order Added by Valeria Expert. Performed By: #### 1 9378393, 2068891, 4216910, 3123101, 7185795, 24175960, 4699796 ####[facility] [address] [place] [address] Neutrophils/Leukocyte s Auto (Bld) [Pure # fraction] 4.7 E9/L Normal 2.0-7.5 [facility] Comment on above: Order Comment: Order Added by Discern Expert. Performed By: #### 1 6792261, 3285497, 6727994, 8753379, 5753786, 06372188, 4917585 ####[facility] [address] [place] [address] BMPon 07-02-2023 Creatinine [Mass/Vol] 1.0 mg/dL Normal 0.5-1.3 [facility] Comment on above: Performed By: #### 1 5457328, 5839143, 8991866, 7385838, 8236592, 25900156, 4622476 ####[facility] [address] [place] [address] Urea nitrogen [Mass/Vol] 13 mg/dL Normal 5-21 [facility] Comment on above: Performed By: #### 1 7708825, 7812648, 3056417, 2235916, 9953075, 30822247, 2745075 ####[facility] [address] [place] [address] Urea nitrogen/Creatinine [Mass ratio] 13 No Units Normal 10-20 [facility] Comment on above: Performed By: #### 1 7061199, 6021524, 9483414, 6223148, 8003241, 85637899, 7622737 ####[facility] [address] [place] [address] Anion gap [Moles/Vol] 13 mmol/L Normal 6-16 [facility] Comment on above: Performed By: #### 1 4044977, 1889750, 6317999, 8643804, 5383598, 66532267, 5655090 ####[facility] [address] [place] [address] Calcium [Mass/Vol] 9.1 mg/dL Normal 8.9-11.1 [facility] Comment on above: Performed By: #### 1 8954430, 8668605, 9110445, 6122179, 6474230, 18409759, 5082951 ####[facility] [address] [place] [address] Chloride [Moles/Vol] 100 mmol/L Low 101-111 [facility] Comment on above: Performed By: #### 1 5927608, 2879571, 7380784, 8968143, 5782165, 60507512, 5691115 ####[facility] [address] [place] [address] CO2 [Moles/Vol] 24 mmol/L Normal 21-31 [facility] Comment on above: Performed By: #### 1 1195696, 7814701, 0131828, 1406092, 3429254, 62023110, 5386600 ####[facility] [address] [place] [address] Glucose [Mass/Vol] 129 mg/dL Normal 55-199 [facility] Comment on above: Result Comment: If t his glucose result represents a fasting glucose, interpretation should refer to the following reference range: 55-99 mg/dL Performed By: #### 1 9530042, 0106084, 5076827, 2500957, 5182773, 93655362, 0822901 ####[facility] [address] [place] [address] Potassium [Moles/Vol] 3.8 mmol/L Normal 3.5-5.3 [facility] Comment on above: Performed By: #### 1 8561944, 8326749, 8971104, 5584431, 9253537, 39515276, 8285220 ####[facility] [address] [place] [address] Sodium [Moles/Vol] 133 mmol/L Low 135-145 [facility] Comment on above: Performed By: #### 1 6936730, 2803415, 3995746, 9724238, 7858509, 91259697, 5442647 ####[facility] [address] [place] [address] CBC w/ Auto Diffon 3 Erythrocyte distribution width (RBC) [Ratio] 13.5 % Normal 10.9-14.2 [facility] Comment on above: Performed By: #### 1 0438200, 4296955, 2312068, 0431239, 2580814, 91915253, 2343144 #### [facility] [address] [place] [address] Hematocrit (Bld) [Volume fraction] 38.5 % Normal 34.0-46.0 [facility] Comment on above: Performed By: #### 1 1641296, 6912740, 5514291, 4435290, 5824923, 80308316, 5110511 #### [facility] [address] [place] [address] Hemoglobin (Bld) [Mass/Vol] 12.7 g/dL Normal 12.0-16.0 [facility] Comment on above: Performed By: #### 1 1214186, 0956232, 2434813, 7988731, 1788409, 14052880, 4484353 #### [facility] [address] [place] [address] MCH (RBC) [Entitic mass] 29.7 pg Normal 27.0-34.0 [facility] Comment on above: Performed By: #### 1 0645605, 0626563, 5395844, 5451766, 4903437, 47972979, 1028682 #### [facility] [address] [place] [address] MCHC (RBC) [Mass/Vol] 32.9 g/dL Normal 31.4-36.0 [facility] Comment on above: Performed By: #### 1 0125665, 6025185, 6312984, 0153447, 0509345, 65149991, 5698939 #### [facility] [address] [place] [address] MCV (RBC) [Entitic vol] 90.3 fL Normal 80.0-100.0 [facility] Comment on above: Performed By: #### 1 8634707, 2353239, 1607104, 2224000, 9499146, 83359176, 7979483 #### [facility] [address] [place] [address] Platelet mean volume (Bld) [Entitic vol] 9.1 fL Normal 6.4-10.8 [facility] Comment on above: Performed By: #### 1 4317383, 7152598, 1918734, 0260886, 4011751, 11185680, 1716382 #### [facility] [address] [place] [address] Platelets (Bld) [#/Vol] 183.0 E9/L Normal 150.0-500.0 [facility] Comment on above: Performed By: #### 1 1714005, 4219991, 5509184, 1655270, 0289870, 30442964, 5644919 #### [facility] Laboratory [address] [place] [address] RBC (Bld) [#/Vol] 4.3 E12/L Normal 4.3-5.9 [facility] Comment on above: Performed By: #### 1 3595485, 8646781, 7002170, 3203920, 3859251, 67688983, 6791293 #### [facility] [address] [place] [address] WBC corrected for nucl RBC Auto (Bld) [#/Vol] 6.2 E9/L Normal 4.0-11.0 [facility] Comment on above: Performed By: #### 1 2950136, 0195315, 5323560, 4787971, 3159635, 97917381, 1005304 #### [facility] [address] [place] [address] CHEMISTRYOrdered By: SYSTEM SYSTEM on 07-02-2023 Albumin [...] 1.0 mg/dL Normal 0.5 - 1.3 mg/dL FT Remisol GFR/1.73 sq M.predicted among non-blacks MDRD (S/P/Bld) [Vol rate/Area] 59 mL/min/1.73 m2 Normal >=59mL/min/1 .73 m2 [facility] Comment on above: Interpretive [...] Sensitivity Troponin I Instructions For Use, [employer], March 2018) Urea nitrogen [Mass/Vol] 13 mg/dL [...] the same coagulation reagent and instrumentation as [facility] Currently there are no coagulation studies [...] the same coagulation reagent and instrumentation as [facility]. Currently there are no coagulation studies available worldwide for children to 14 days, and no normal ranges. Consent for Treatmenton 06-14 Consent for Treatment [id number] Normal [facility] HEMATOLOGYOrdered By: SYSTEM SYSTEM on [...] Coag (PPP) [Time] 30.2 second(s) Normal 25.1-36.5 [facility] Comment on above: Result Comment: [...] the same coagulation reagent and instrumentation as [facility] Currently there are no coagulation studies available worldwide for children to 14 days, and no normal ranges. Heparin therapeutic range (represented by Anti-Factor Xa activity of 0.2 - 0.4 U/mL) corresponds to PTT of 56.6 - 109.0 sec. Performed By: #### 2 594980, 64694518, 1754145, 9843153, 3857488, 2167767 #### [facility] [address] [place] [address] INR Coag (PPP) [Relative time] 1.2 {INR} Invalid Interpretation Code [facility] Comment on above: Result Comment: INR results are specifically intended to assess patients stabilized on long-term Anticoagulation therapy suggested INR?s ?Less Intensive Anticoagulation? 2.0 ? 3.0 Conventional Range 3.0 ? 4.5 Performed By: #### 2 910139, 16067097, 6348358, 7240064, 0238245, 5563418 #### [facility] [address] [place] [address] PT Coag (PPP) [Time] 13.2 second(s) High 9.4-12.5 [facility] Comment on above: Result Comment: [...] the same coagulation reagent and instrumentation as [facility] Currently there are no coagulation studies available worldwide for children to 14 days, and no normal ranges. Performed By: #### 2 827840, 42967268, 5508694, 5695884, 2319536, 2511766 #### [facility] [address] [place] [address] UA With Cult Reflexon 2022 Bacteria LM Ql (Urine sed) TRACE Normal Trace [facility] Comment on above: Order Comment: Urina ry Catheter Insertion triggered Urinalysis With Culture Reflex order by discern. Performed By: #### 2 648014, 52843399, 9688772, 3249755, 3199441, 9722426 #### [facility] [address] [place] [address] Bilirubin Ql (U) Negative Normal Negative [facility] Comment on above: Order Comment: Urina ry Catheter Insertion triggered Urinalysis With Culture Reflex order by discern. Performed By: #### 2 049936, 02797568, 4006892, 0076078, 6894344, 0464063 #### [facility] [address] [place] [address] Clarity (U) CLEAR Normal Clear [facility] Comment on above: Order Comment: Urina ry Catheter Insertion triggered Urinalysis With Culture Reflex order by discern. Performed By: #### 2 721260, 94335043, 9960146, 5324726, 2504555, 5348171 #### [facility] [address] [place] [address] Color (U) YELLOW Normal Yellow [facility] Comment on above: Order Comment: Urina ry Catheter Insertion triggered Urinalysis With Culture Reflex order by discern. Performed By: #### 2 246276, 61717866, 9047098, 4776145, 2867276, 4315384 #### [facility] [address] [place] [address] Epithelial cells.squamous LM.HPF (Urine sed) [#/Area] 9-10 Normal 0-2 [facility] Comment on above: Order Comment: Urina ry Catheter Insertion triggered Urinalysis With Culture Reflex order by discern. Performed By: #### 2 722136, 58203937, 7190840, 4378550, 3115699, 5557577 #### [facility] [address] [place] [address] Glucose Test strip (U) [Mass/Vol] Negative Normal Negative [facility] Comment on above: Order Comment: Urina ry Catheter Insertion triggered Urinalysis With Culture Reflex order by discern. Performed By: #### 2 291858, 59027255, 8902434, 4782040, 1440586, 2728288 #### [facility] [address] [place] [address] Hemoglobin Ql (U) TRACE Abnormal Negative [facility] Comment on above: Order Comment: Urina ry Catheter Insertion triggered Urinalysis With Culture Reflex order by discern. Performed By: #### 2 491604, 21956695, 7164634, 7818286, 8024321, 8862617 #### [facility] [address] [place] [address] Ketones (U) [Mass/Vol] TRACE Invalid Interpretation Code Negative [facility] Comment on above: Order Comment: Urina ry Catheter Insertion triggered Urinalysis With Culture Reflex order by discern. Performed By: #### 2 486554, 67316493, 3455307, 5601431, 7623217, 6696902 #### [facility] [address] [place] [address] [place].plasma/Lithiu m.RBC (Bld) [Mass ratio] 0-3 Normal 0-3 [facility] Comment on above: Order Comment: Urina ry Catheter Insertion triggered Urinalysis With Culture Reflex order by discern. Performed By: #### 2 392168, 45509175, 3397240, 1786199, 3904407, 7078462 #### [facility] [address] [place] [address] Mucus Ql (Urine sed) TRACE Normal [facility] Comment on above: Order Comment: Urina ry Catheter Insertion triggered Urinalysis With Culture Reflex order by discern. Performed By: #### 2 058154, 26592948, 2394786, 4435167, 1135635, 8124621 #### [facility] [address] [place] [address] Nitrite Ql (U) Negative Normal Negative [facility] Comment on above: Order Comment: Urina ry Catheter Insertion triggered Urinalysis With Culture Reflex order by discern. Performed By: #### 2 686244, 32590451, 4285329, 5901620, 7899874, 8563216 #### [facility] [address] [place] [address] pH (U) 5.5 [pH] Invalid Interpretation Code 5.0-9.0 [facility] Comment on above: Order Comment: Urina ry Catheter Insertion triggered Urinalysis With Culture Reflex order by discern. Performed By: #### 2 773062, 74567402, 8452330, 7458144, 9137234, 2848888 #### [facility] [address] [place] [address] Protein (U) [Mass/Vol] Negative Normal Negative [facility] Comment on above: Order Comment: Urina ry Catheter Insertion triggered Urinalysis With Culture Reflex order by discern. Performed By: #### 2 018443, 07369377, 2456782, 4874643, 1757409, 1780630 #### [facility] [address] [place] [address] Specific gravity (U) [Rel density] 1.025 Invalid Interpretation Code 1.005-1.030 [facility] Comment on above: Order Comment: Urina ry Catheter Insertion triggered Urinalysis With Culture Reflex order by discern. Performed By: #### 2 726258, 54693022, 8907397, 9962517, 1235633, 6791916 #### [facility] [address] [place] [address] Type of Urine collection method Robles Normal [facility] Comment on above: Order Comment: Urina ry Catheter Insertion triggered Urinalysis With Culture Reflex order by discern. Performed By: #### 2 895780, 20284853, 6353392, 3965511, 8716099, 3186030 #### [facility] [address] [place] [address] Urobilinogen Qn (U) 0.2 {Judith'U}/dL Normal 0.0-1.0 [facility] Comment on above: Order Comment: Urina ry Catheter Insertion triggered Urinalysis With Culture Reflex order by discern. Performed By: #### 2 411584, 74900762, 9192203, 9443267, 0167258, 1902611 #### [facility] [address] [place] [address] WBC Auto Ql (U) Negative Normal Negative [facility] Comment on above: Order Comment: Urina ry Catheter Insertion triggered Urinalysis With Culture Reflex order by discern. Performed By: #### 2 703846, 77770597, 5949025, 8017042, 9526282, 9055904 #### [facility] [address] [place] [address] WBC LM.HPF (Urine sed) [#/Area] 0-5 Normal 0-5 [facility] Comment on above: Order Comment: Urina ry Catheter Insertion triggered Urinalysis With Culture Reflex order by discern. Performed By: #### 2 490925, 15264043, 6424015, 2533799, 3580676, 3027379 #### [facility] [address] [place] [address] URINALYSISOrdered By: Lan Eastman on 07-02-2023 Bacteria LM Ql (Urine sed) Trace /HPF Normal Trace/HPF FT UA Auto SS Bilirubin Ql (U) Negative (07/02/23 10:18 PM) Normal Negative [facility] UA Auto SS Clarity (U) Clear [...] Interpretation Code Negative [facility] UA Auto SS [place].plasma/Lithiu m.RBC (Bld) [Mass ratio] 0-3 /HPF Normal [...] [facility] UA Auto SS Urobilinogen Qn (U) 0.1173120 {Judith'U}/dL Normal 0.0 - 1.0 EU/dL [facility] UA Auto SS WBC Auto Ql (U) Negative (07/02/23 10:18 PM) Normal Negative [facility] UA Auto SS WBC LM.HPF (Urine sed) [#/Area] 0-5 /HPF Normal 0-5/HPF [facility] UA Auto SS eGFRon 07-02-2023 GFR/1.73 sq M.predicted among non-blacks MDRD (S/P/Bld) [Vol rate/Area] 59 mL/min/1.73 m2 Normal >=59 [facility] Comment on above: Order Comment: Order added by Discern Expert. Result Comment: Gravel Inspector luis kidney disease could be indicated at eGFR's of less than 60 mL/min/1.73m2. Kidney failure is indicated at less than 15 mL/min/1.73m2. Performed By: #### 1 7239220, 2825962, 4699177, 9751706, 9617512, 30583345, 4852250 ####[facility] [address] [place] [address] CT Abdomen/Pelvis w/o Contra ston 07-01-2023 CT [...] Oral contrast amount in ml's: 0 Normal [facility] Discharge Instructionson Discharge Instructions [id number] Normal [facility] ED Clinical Summaryon 2022 ED Clinical Summary [place] [id number] ED Clinical Summary Person Information Name: HARJIT ASENCIO I [facility] Age: 73 Years : 1950 Sex: Female Language: Sierra Leonean PCP: Peggy Nazario MD Marital Status: Visit [...] 07/01/2023 00:37:46 07/01/2023 00:37:46 07/01/2023 00:37:46 ADDRESS: [address] [place] [address] [address] [facility] [id number] PHYS DOC NOTES: MEDICAL INFORMATION: Prescriptions Given: New Medications [id number], [address], [place] [id number], [phone] dicyclomine (Bentyl 10 mg Cap) 1 Capsules [...] PATIENT EDUCATION INFORMATION: Instructions: Abdominal Pain, Adult, Wxir-jg-Rxvi Follow up: With: Address: When: Peggy Nazario [address] [place] [address] Business (1) In 3 days 07/04/2023 Comments: You can use the Bentyl, Zofran every 6 hours as needed for pain and nausea. Please follow-up with your primary care doctor next 2 to 3 days for further evaluation management. Please return to the ED for any new or worsening symptoms. DIAGNOSIS: Abdominal pain, acute Normal [facility] ED Note-Physicianon 07-01-20 ED Note-Physician Basic Information Time Seen: Dokken DO, Kaylinn A 06/30/2023 20:41 Chief Complaint Pt having LLQ [...] and Complexity of Problems Differential Diagnosis: [] [facility] Data External documents reviewed: [] My [...] day(s), # 14 cap(s), Refills(s) 0, Pharmacy: [facility] #[id number], 165, cm, 06/30/23 19:37:00 EST, Height/Length Dosing, [...] q8hr, # 12 tab(s), Refills(s) 0, Pharmacy: [facility] #[id number], 165, cm, 06/30/23 19:37:00 EST, Height/Length Dosing, [...] Peggy Nazario In 3 days 07/04/2023 [place] [address] alphacityguides (1) Additional Instructions: You can use the Bentyl, Zofran every 6 hours as needed for pain and nausea. Please follow-up with your primary care doctor next 2 to 3 days for further evaluation management. Please return to the ED for any new or worsening symptoms. Patient Education Abdominal Pain, Adult, Prdb-pg-Bcdf Problem List/Past Medical History Ongoing acid reflux Acute ga (more content not included)... Normal [facility] Comment on above: Result Comment: [...] these instructions at home: Medicines ? Take fjqe-pmw-jcnsqam and prescription medicines only as told by [...] belly pain for any changes. ? Take vdfy-tql-lswyryt and prescription medicines only as told by [...] Reviewed: 12/09/2019 Elsevier Patient Education ? 2022 [employer] Normal [facility] ED Patient Summaryon 023 ED Patient Summary [place] [id number] Patient Discharge Instructions Person Information Name: HARJIT ASENCIO I Age: 73 Years Arrival Date: 06/30/2023 18:48:02 Discharge Diagnosis: Abdominal pain, acute Primary Care Physician: Peggy Nazario MD Provider Information Primary Provider: Koby Masterson DO Advanced Service Attendant Cafeteria:None The exam and treatment you received in the Emergency Department were for an urgent problem and are not intended as complete care. It is important that you follow up with a doctor, nurse practitioner, or physician?s phys assistant for ongoing care. If your symptoms [...] Follow-up Instructions: With: Address: When: Peggy Nazario [employer] [place] [id number] Business (1) In 3 days 07/04/2023 Comments: [...] provider. Patient Education Materials: Abdominal Pain, Adult, Vorc-vd-Kylc A MESSAGE TO ALL PATIENTS REGARDING OPIOIDS PRESCRIPTION OPIOIDS: WHAT YOU NEED TO KNOW Prescription opioids can be used to help relieve xcinezcs-yp-azxdap pain and are often prescribed following a [...] to le (more content not included)... Normal [facility] RAD - Preliminary Cat Scan R danielapattie 07-01-2023 RAD - Preliminary Cat Scan Report [id number] Normal [facility] Auto Diffon 06-30-2023 Basophils/100 WBC (Bld) 0.8 % Normal 0.0-2.0 [facility] Comment on above: Order Comment: Order Added by Discern Expert. Performed By: #### 2 596046, 18574084, 9475965, 6446190, 1688348, 4585749 #### [facility] [address] [place] [address] Basophils/Leukocytes Auto (Bld) [Pure # fraction] 0.0 E9/L Normal 0.0-0.2 [facility] Comment on above: Order Comment: Order Added by Discern Expert. Performed By: #### 2 023801, 82844172, 7191246, 2891774, 1882864, 7752756 #### [facility] [address] [place] [address] Eosinophils/100 WBC (Bld) 0.2 % Normal 0.0-8.0 [facility] Comment on above: Order Comment: Order Added by Discern Expert. Performed By: #### 2 747779, 69467067, 6142932, 3784167, 4874256, 2684270 #### [facility] [address] [place] [address] Eosinophils/Leukocyte s Auto (Bld) [Pure # fraction] 0.0 E9/L Normal 0.0-0.5 [facility] Comment on above: Order Comment: Order Added by Discern Expert. Performed By: #### 2 964603, 09919424, 9774984, 5594931, 7638941, 9024131 #### [facility] [address] [place] [address] Lymphocytes/100 WBC (Bld) 26.7 % Normal 14.0-50.0 [facility] Comment on above: Order Comment: Order Added by Discern Expert. Performed By: #### 2 193805, 78175089, 7751652, 9367007, 9151657, 5589712 #### [facility] Laboratory [address] [place] [address] Lymphocytes/Leukocyte s Auto (Bld) [Pure # fraction] 1.2 E9/L Normal 1.0-4.0 [facility] Comment on above: Order Comment: Order Added by Discern Expert. Performed By: #### 2 486190, 88730867, 2807562, 8469148, 6315706, 4474383 #### [facility] [address] [place] [address] Monocytes/100 WBC (Bld) 9.8 % Normal 4.0-14.0 [facility] Comment on above: Order Comment: Order Added by Discern Expert. Performed By: #### 2 006989, 56875664, 6848146, 4889665, 1591789, 0253477 #### [facility] [address] [place] [address] Monocytes/Leukocytes Auto (Bld) [Pure # fraction] 0.4 E9/L Normal 0.2-1.0 [facility] Comment on above: Order Comment: Order Added by Discern Expert. Performed By: #### 2 057955, 15650854, 6603544, 3565360, 9977731, 2619074 #### [facility] Laboratory [address] [place] [address] Neutrophils/100 WBC (Bld) 62.5 % Normal 36.0-75.0 [facility] Comment on above: Order Comment: Order Added by Discern Expert. Performed By: #### 2 929503, 09628096, 8781312, 9492937, 4543629, 3833612 #### [facility] [address] [place] [address] Neutrophils/Leukocyte s Auto (Bld) [Pure # fraction] 2.7 E9/L Normal 2.0-7.5 [facility] Comment on above: Order Comment: Order Added by Discern Expert. Performed By: #### 2 579677, 22572962, 8982233, 9779956, 2954005, 4531407 #### [facility] [address] [place] [address] BMPon 06-30-2023 Creatinine [Mass/Vol] 0.8 mg/dL Normal 0.5-1.3 [facility] Comment on above: Performed By: #### 2 884295, 64909326, 2715142, 6269954, 8726775, 4186371 #### [facility] [address] [place] [address] Urea nitrogen [Mass/Vol] 12 mg/dL Normal 5-21 [facility] Comment on above: Performed By: #### 2 659243, 08932277, 1247417, 9916511, 5064849, 4284245 #### [facility] [facility] [address] [place] [address] Urea nitrogen/Creatinine [Mass ratio] 15 No Units Normal 10-20 [facility] Comment on above: Performed By: #### 2 861619, 83423315, 0198696, 8561764, 3846823, 8325324 #### [facility] [address] [place] [address] Anion gap [Moles/Vol] 13 mmol/L Normal 6-16 [facility] Comment on above: Performed By: #### 2 338179, 11795757, 1281763, 9624162, 5533064, 8496407 #### [facility] [address] [place] [address] Calcium [Mass/Vol] 9.5 mg/dL Normal 8.9-11.1 [facility] Comment on above: Performed By: #### 2 997526, 81394593, 6209462, 6982208, 6155143, 4697210 #### [facility] [address] [place] [address] Chloride [Moles/Vol] 103 mmol/L Normal 101-111 [facility] Comment on above: Performed By: #### 2 567922, 95985164, 3829409, 2419185, 8317477, 3092710 #### [facility] [address] [place] [address] CO2 [Moles/Vol] 27 mmol/L Normal 21-31 [facility] Comment on above: Performed By: #### 2 155397, 44014317, 5951871, 5684633, 0073316, 2782442 #### [facility] [address] [place] [address] Glucose [Mass/Vol] 110 mg/dL Normal 55-199 [facility] Comment on above: Result Comment: If t his glucose result represents a fasting glucose, interpretation should refer to the following reference range: 55-99 mg/dL Performed By: #### 2 119276, 72930178, 8381680, 9662759, 6667361, 5829218 #### [facility] [address] [place] [address] Potassium [Moles/Vol] 4.1 mmol/L Normal 3.5-5.3 [facility] Comment on above: Performed By: #### 2 809042, 34289734, 3849150, 7563694, 5915610, 0762960 #### [facility] [address] [place] [address] Sodium [Moles/Vol] 139 mmol/L Normal 135-145 [facility] Comment on above: Performed By: #### 2 744655, 86756135, 8956659, 9023121, 2763942, 1642511 #### [facility] [address] [place] [address] CBC w/ Auto Diffon 3 Erythrocyte distribution width (RBC) [Ratio] 13.7 % Normal 10.9-14.2 [facility] Comment on above: Performed By: #### 2 926886, 19859016, 6452713, 7453229, 6229566, 7605943 #### [facility] [address] [place] [address] Hematocrit (Bld) [Volume fraction] 38.0 % Normal 34.0-46.0 [facility] Comment on above: Performed By: #### 2 903815, 26052194, 4970343, 6544876, 4942042, 4150581 #### [facility] [address] [place] [address] Hemoglobin (Bld) [Mass/Vol] 12.5 g/dL Normal 12.0-16.0 [facility] Comment on above: Performed By: #### 2 294856, 01792449, 0018588, 7461618, 3584152, 4294087 #### [facility] [address] [place] [address] MCH (RBC) [Entitic mass] 29.9 pg Normal 27.0-34.0 [facility] Comment on above: Performed By: #### 2 489829, 91123174, 6495070, 9867423, 6769294, 0402302 #### [facility] [address] [place] [address] MCHC (RBC) [Mass/Vol] 32.9 g/dL Normal 31.4-36.0 [facility] Comment on above: Performed By: #### 2 768009, 01887243, 4684243, 9281811, 7251914, 4440762 #### [facility] [address] [place] [address] MCV (RBC) [Entitic vol] 90.9 fL Normal 80.0-100.0 [facility] Comment on above: Performed By: #### 2 008264, 25339841, 0403782, 0615878, 7837517, 2950718 #### [facility] [address] [place] [address] Platelet mean volume (Bld) [Entitic vol] 8.7 fL Normal 6.4-10.8 [facility] Comment on above: Performed By: #### 2 079748, 83686438, 9595365, 6331082, 8566592, 6831803 #### [facility] [address] [place] [address] Platelets (Bld) [#/Vol] 184.0 E9/L Normal 150.0-500.0 [facility] Comment on above: Performed By: #### 2 351014, 36189441, 9376798, 6352153, 2585222, 9776888 #### [facility] [address] [place] [address] RBC (Bld) [#/Vol] 4.2 E12/L Low 4.3-5.9 [facility] Comment on above: Performed By: #### 2 427142, 61439565, 4190385, 7299385, 6569319, 6439351 #### [facility] [address] [place] [address] WBC corrected for nucl RBC Auto (Bld) [#/Vol] 4.4 E9/L Normal 4.0-11.0 [facility] Comment on above: Performed By: #### 2 183578, 63031768, 4988738, 6554215, 5952697, 8659646 #### [facility] [address] [place] [id number] CHEMISTRYOrdered By: SYSTEM SYSTEM on 06-30-2023 Albumin [...] Invalid Interpretation Code 0.1 - 0.9 mg/dL [facility] Calcium [Mass/Vol] 9.5 mg/dL Normal 8.9 - 11. 1 mg/dL [facility] Chloride [Moles/Vol] 103 mmol/L Normal 101 - 1 11 mmol/L [facility] CO2 [Moles/Vol] 27 mmol/L Normal 21 - 31 mmol/L [facility] Creatinine [Mass/Vol] 0.8 mg/dL Normal 0.5 - 1.3 mg/dL [facility] GFR/1.73 sq M.predicted among non-blacks MDRD (S/P/Bld) [Vol rate/Area] 77 mL/min/1.73 m2 Normal >=59mL/min/1 .73 m2 [facility] Comment on above: Interpretive [...] Treatmenton 06-14 Consent for Treatment [id number] 311 [id number] .[id number] Normal [facility] Consent for Treatment [id number] 311 [id number] .[id number] Normal [facility] HEMATOLOGYOrdered By: SYSTEM SYSTEM on [...] Bilirubin.indirect [Mass or moles/Vol] UTC Abnormal 0.1-0.9 [facility] Comment on above: Result Comment: Resu lt verified by Discern Rule. Performed result UTC (Unable to Calculate) was sent as an Alpha code due the inability to calculate a valid numeric value. Performed By: #### 2 688317, 58811470, 2581297, 2228479, 6274338, 7023081 #### [facility] [address] [place] [address] Albumin [Mass/Vol] 3.8 g/dL Normal 3.3-5.0 [facility] Comment on above: Performed By: #### 2 908162, 66356889, 3903620, 2041838, 1947117, 7385629 #### [facility] [address] [place] [address] Albumin/Globulin (S) [Mass conc ratio] 1.3 Normal 1.1-2.2 [facility] Comment on above: Performed By: #### 2 233792, 52965611, 5344208, 0040496, 4015100, 3342948 #### [facility] [address] [place] [address] ALP [Catalytic activity/Vol] 56 Int._Unit/L Normal 21-98 [facility] Comment on above: Performed By: #### 2 710726, 47596128, 6725710, 4675457, 7253864, 6487261 #### [facility] [address] [place] [address] ALT No additional P-5'-P [Catalytic activity/Vol] 50 Int._Unit/L High 6-46 [facility] Comment on above: Performed By: #### 2 745589, 08943131, 1866268, 6308623, 0486982, 2798218 #### [facility] [address] [place] [address] AST [Catalytic activity/Vol] 45 Int._Unit/L High 5-43 [facility] Comment on above: Performed By: #### 2 855679, 59335086, 0751294, 3664348, 0233159, 1164259 #### [facility] [address] [place] [address] Bilirubin [Mass/Vol] 0.5 mg/dL Normal 0.0-1.1 [facility] Comment on above: Performed By: #### 2 685046, 67112488, 8704854, 9757002, 7766000, 0907807 #### [facility] [address] [place] [address] Globulin (S) [Mass/Vol] 3.0 g/dL Normal 1.4-4.0 [facility] Comment on above: Performed By: #### 2 834142, 13084842, 2146130, 7345834, 6830911, 1405274 #### [facility] [address] [place] [address] Protein [Mass/Vol] 6.8 g/dL Normal 6.0-7.8 [facility] Comment on above: Performed By: #### 2 752849, 94407177, 8603370, 1842885, 2711175, 7426688 #### [facility] [address] [place] [address] Bilirubin.direct [Mass/Vol] mg/dL Normal 0.1-0.4 [facility] Comment on above: Performed By: #### 2 845329, 18405443, 0902034, 1960743, 6705740, 4516749 #### [facility] [address] [place] [address] Lipase Levelon 06-30-2023 Lipase [Catalytic activity/Vol] 31 U/L Normal 13-58 [facility] Comment on above: Performed By: #### 2 988714, 36675911, 4334779, 5021913, 8549056, 3925212 #### [facility] [address] [place] [address] UA With Cult Reflexon 2022 Bacteria LM Ql (Urine sed) TRACE Normal Trace [facility] Comment on above: Performed By: #### 2 276600, 43355234, 8292922, 8162948, 1956845, 5674788 #### [facility] [address] [place] [address] Bilirubin Ql (U) Negative Normal Negative [facility] Comment on above: Performed By: #### 2 026620, 20239328, 1224735, 4796949, 5593538, 4278907 #### [facility] [address] [place] [address] Clarity (U) CLEAR Normal Clear [facility] Comment on above: Performed By: #### 2 588052, 38706720, 2367025, 3164117, 6391143, 2228365 #### [facility] [address] [place] [address] Color (U) YELLOW Normal Yellow [facility] Comment on above: Performed By: #### 2 113232, 76934390, 4383164, 0300744, 5117245, 2021285 #### [facility] [address] [place] [address] Epithelial cells.squamous LM.HPF (Urine sed) [#/Area] 0-2 Normal 0-2 [facility] Comment on above: Performed By: #### 2 703702, 27945660, 4054192, 8792655, 2379089, 2181853 #### [facility] [address] [place] [address] Glucose Test strip (U) [Mass/Vol] Negative Normal Negative [facility] Comment on above: Performed By: #### 2 398130, 94868113, 5478840, 2586405, 2244731, 6860433 #### [facility] [address] [place] [address] Hemoglobin Ql (U) TRACE Abnormal Negative [facility] Comment on above: Performed By: #### 2 798801, 25167773, 0743642, 6327871, 8641353, 9163644 #### [facility] [address] [place] [address] Ketones (U) [Mass/Vol] Negative Normal Negative [facility] Comment on above: Performed By: #### 2 501359, 04623967, 0104965, 0979825, 8858175, 8773002 #### [facility] [address] [place] [address] [place].plasma/Lithiu m.RBC (Bld) [Mass ratio] 0-3 Normal 0-3 [facility] Comment on above: Performed By: #### 2 051772, 12401231, 9655914, 5757837, 7828252, 9036878 #### [facility] [address] [place] [address] Nitrite Ql (U) Negative Normal Negative [facility] Comment on above: Performed By: #### 2 195649, 06343407, 5293734, 3850657, 7754083, 9945815 #### [facility] [address] [place] [address] pH (U) 6.5 [pH] Invalid Interpretation Code 5.0-9.0 [facility] Comment on above: Performed By: #### 2 588603, 51576768, 9546932, 9338862, 1933462, 4327001 #### [facility] [address] [place] [address] Protein (U) [Mass/Vol] Negative Normal Negative [facility] Comment on above: Performed By: #### 2 763495, 51721475, 0253462, 3456140, 4638186, 2218818 #### [facility] [address] [place] [address] Specific gravity (U) [Rel density] <=1.005 Invalid Interpretation Code 1.005-1.030 [facility] Comment on above: Performed By: #### 2 307905, 11724072, 1672479, 7571948, 5923355, 6879270 #### [facility] [address] [place], [place] [address] Type of Urine collection method Clean Catch Normal [facility] Comment on above: Performed By: #### 2 000380, 87343016, 3647136, 1217010, 6071013, 9225319 #### [facility] [address] [place], [place] [address] Urobilinogen Qn (U) 0.2 {Judith'U}/dL Normal 0.0-1.0 [facility] Comment on above: Performed By: #### 2 081747, 96271101, 0795354, 5359698, 1555155, 0327893 #### [facility] [address] [place] [address] WBC Auto Ql (U) Negative Normal Negative [facility] Comment on above: Performed By: #### 2 343107, 58990331, 1378011, 5291168, 9911468, 1374216 #### [facility] [address] [place] [address] WBC LM.HPF (Urine sed) [#/Area] 0-5 Normal 0-5 [facility] Comment on above: Performed By: #### 2 135496, 13024439, 0006403, 4248338, 9946572, 1438827 #### [facility] [address] [place] [address] [place] [address] URINALYSISOrdered By: Brian Davis on 06-30-2023 Bacteria [...] PM) Normal Negative [facility] UA Auto SS [place].plasma/Lithiu m.RBC (Bld) [Mass ratio] 0-3 /HPF Normal [...] [facility] UA Auto SS Urobilinogen Qn (U) 0.1518807 {Judith'U}/dL Normal 0.0 - 1.0 EU/dL [facility] UA Auto SS WBC Auto Ql (U) Negative (06/30/23 8:00 PM) Normal Negative [facility] UA Auto SS WBC LM.HPF (Urine sed) [#/Area] 0-5 /HPF Normal 0-5/HPF [facility] UA Auto SS eGFRon 06-30-2023 GFR/1.73 sq M.predicted among non-blacks MDRD (S/P/Bld) [Vol rate/Area] 77 mL/min/1.73 m2 Normal >=59 [facility] Comment on above: Order Comment: Order added by Discern Expert. Result Comment: Gravel Inspector luis kidney disease could be indicated at eGFR's of less than 60 mL/min/1.73m2. Kidney failure is indicated at less than 15 mL/min/1.73m2. Performed By: #### 2 557763, 74721736, 4135484, 7839523, 6761736, 9682752 #### [facility] [address] [place] [address] URINALYSISOrdered By: Lan Eastman on 01-28-2023 Bilirubin [...] PM) Normal Negative [facility] UA Auto SS [place].plasma/Lithiu m.RBC (Bld) [Mass ratio] 0-3 /HPF Normal [...] Desc Clean Catch (01/28/23 11:04 PM) Normal [facility] UA Auto SS Urobilinogen Qn (U) 1.3509228 {Judith'U}/dL Normal 0.0 - 1.0 EU/dL [facility] UA Auto SS WBC Auto Ql (U) Negative (01/28/23 11:04 PM) Normal Negative [facility] UA Auto SS WBC LM.HPF (Urine sed) [#/Area] 0-5 /HPF Normal 0-5/HPF [facility] UA Auto SS Q - SARS CoV2 COVID 19 Ab Ig Clarence 08-20-2021 SARS-CoV-2 (COVID-19) Ab IA Qn 25.84 index High <1.00 [facility] [employer] Comment on above: Order Comment: rumr Testing performed at: [facility], [address] [place] [address], [address] [place] [address], [phone], Manager Local: Ab Vincent MD [facility] Date/Time: [facility] [...] providers and patients using the following websites: [email or web address] Healthcare Providers: For additional information please refer to: http://education.InVivioLink.SellStage/faq/XHC408 (This link is being provided for informational/educational purposes only.) This test has been authorized by the FDA under an Emergency Use Authorization (EUA) for use by authorized laboratories. The FDA authorized labeling is available on the [employer] website: www.SumAll.SellStage/Covid19. Performed By: #### 3 4499 #### [facility] Default [address] [place] [address] Reference Laboratory Testing Ordered By: [facility] DomainUser on 08-12-2021 SARS-CoV-2 (COVID-19) RNA JORDAN+probe Ql (Resp) Not detected Invalid Interpretation Code Not Detected [facility] Comment on above: Result Comment: This nucleic acid amplification test was developed and its performance characteristics determined by [employer]. Nucleic acid amplification tests include RT-PCR and [...] detected) result in this assay. Performed at: [address] [id number] PhD Emily Fraser Vital Signs Date Time Vital Sign Value Performing Clinician Layo lora 05-14-2025 11:36-0400 Body height 160 cm Hannah Brian MD Work Phone: [facility] 05-14-2025 11:36-0400 Body mass index (BMI) [Ratio] 23.03 kg/m2 Hannah Brian MD Work Phone: [facility] 05-14-2025 11:36-0400 Body temperature 98.2 [degF] Hannah Brian MD Work Phone: [facility] 05-14-2025 11:36-0400 Body weight 58.97 kg Hannah Brian MD Work Phone: [facility] 05-14-2025 11:36-0400 Diastolic blood pressure 78 mm[Hg] Hannah Brian MD Work Phone: [facility] 05-14-2025 11:36-0400 Heart rate 72 /min Hannah Brian MD Work Phone: [facility] 05-14-2025 11:36-0400 SaO2% (BldA) [Mass fraction] 97 % Hannah Brian MD Work Phone: [facility] 05-14-2025 11:36-0400 Systolic blood pressure 128 mm[Hg] Hannah Brian MD Work Phone: [facility] 05-08-2025 14:26-0400 Body height 160 cm Hannah Brian MD Work Phone: [facility] 05-08-2025 14:26-0400 Body mass index (BMI) [Ratio] 23.17 kg/m2 Hannah Brian MD Work Phone: [facility] 05-08-2025 14:26-0400 Body temperature 98.29 [degF] Hannah Brian MD Work Phone: [facility] 05-08-2025 14:26-0400 Body weight 59.33 kg Hannah Brian MD Work Phone: [facility] 05-08-2025 14:26-0400 Diastolic blood pressure 78 mm[Hg] Hannah Brian MD Work Phone: [facility] 05-08-2025 14:26-0400 Heart rate 71 /min Hannah Brian MD Work Phone: [facility] 05-08-2025 14:26-0400 SaO2% (BldA) [Mass fraction] 98 % Hannah Brian MD Work Phone: [facility] 05-08-2025 14:26-0400 Systolic blood pressure 118 mm[Hg] Hannah Brian MD Work Phone: [facility] 04-21-2025 15:21-0400 Body height 160 cm Hannah Brian MD Work Phone: [facility] 04-21-2025 15:21-0400 Body mass index (BMI) [Ratio] 23.13 kg/m2 Hannah Brian MD Work Phone: [facility] 04-21-2025 15:21-0400 Body temperature 97.81 [degF] Hannah Brian MD Work Phone: [facility] 04-21-2025 15:21-0400 Body weight 59.24 kg Hannah Brian MD Work Phone: [facility] 04-21-2025 15:21-0400 Diastolic blood pressure 80 mm[Hg] Hannah Brian MD Work Phone: [facility] 04-21-2025 15:21-0400 Heart rate 71 /min Hannah Brian MD Work Phone: [facility] 04-21-2025 15:21-0400 SaO2% (BldA) [Mass fraction] 97 % Hannah Brian MD Work Phone: [facility] 04-21-2025 15:21-0400 Systolic blood pressure 120 mm[Hg] Hannah Brain MD Work Phone: [facility] 04-07-2025 13:46-0400 Body height 160 cm Hannah Brian MD Work Phone: [facility] 04-07-2025 13:46-0400 Body mass index (BMI) [Ratio] 23.6 kg/m2 Hannah Brian MD Work Phone: [facility] 04-07-2025 13:46-0400 Body temperature 98.2 [degF] Hannah Brian MD Work Phone: [facility] 04-07-2025 13:46-0400 Body weight 60.42 kg Hannah Brian MD Work Phone: [facility] 04-07-2025 13:46-0400 Diastolic blood pressure 62 mm[Hg] Hannah Brian MD Work Phone: [facility] 04-07-2025 13:46-0400 Heart rate 68 /min Hannah Brian MD Work Phone: [facility] 04-07-2025 13:46-0400 SaO2% (BldA) [Mass fraction] 99 % Hannah Brian MD Work Phone: [facility] 04-07-2025 13:46-0400 Systolic blood pressure 128 mm[Hg] Hannah Brian MD Work Phone: [facility] 01-22-2025 13:56-0400 Body height 160 cm Hannah Brian MD Work Phone: [facility] 01-22-2025 13:56-0400 Body mass index (BMI) [Ratio] 23.91 kg/m2 Hannah Brian MD Work Phone: [facility] 01-22-2025 13:56-0400 Body temperature 98.01 [degF] Hannah Brian MD Work Phone: [facility] 01-22-2025 13:56-0400 Body weight 61.24 kg Hannah Brian MD Work Phone: [facility] 01-22-2025 13:56-0400 Diastolic blood pressure 60 mm[Hg] Hannah Brian MD Work Phone: [facility] 01-22-2025 13:56-0400 Heart rate 70 /min Hannah Brian MD Work Phone: [facility] 01-22-2025 13:56-0400 SaO2% (BldA) [Mass fraction] 99 % Hannah Brian MD Work Phone: [facility] 01-22-2025 13:56-0400 Systolic blood pressure 138 mm[Hg] Hannha Brian MD Work Phone: [facility] 01-07-2025 15:47-0400 Body height 160 cm Hannah Brian MD Work Phone: [facility] 01-07-2025 15:47-0400 Body mass index (BMI) [Ratio] 23.95 kg/m2 Hannah Brian MD Work Phone: [facility] 01-07-2025 15:47-0400 Body temperature 97.9 [degF] Hannah Brian MD Work Phone: [facility] 01-07-2025 15:47-0400 Body weight 61.33 kg Hannah Brian MD Work Phone: [facility] 01-07-2025 15:47-0400 Diastolic blood pressure 70 mm[Hg] Hannah Brian MD Work Phone: [facility] 01-07-2025 15:47-0400 Heart rate 70 /min Hannah Brian MD Work Phone: [facility] 01-07-2025 15:47-0400 SaO2% (BldA) [Mass fraction] 97 % Hannah Brian MD Work Phone: [facility] 01-07-2025 15:47-0400 Systolic blood pressure 120 mm[Hg] Hannah Brian MD Work Phone: [facility] 12-17-2024 15:23-0400 Body height 160 cm Hannah Brian MD Work Phone: [facility] 12-17-2024 15:23-0400 Body mass index (BMI) [Ratio] 24.09 kg/m2 Hannah Brian MD Work Phone: [facility] 12-17-2024 15:23-0400 Body temperature 97.5 [degF] Hannah Brian MD Work Phone: [facility] 12-17-2024 15:23-0400 Body weight 61.69 kg Hannah Brian MD Work Phone: [facility] 12-17-2024 15:23-0400 Diastolic blood pressure 80 mm[Hg] Hannah Brian MD Work Phone: [facility] 12-17-2024 15:23-0400 Heart rate 74 /min Hannah Brian MD Work Phone: [facility] 12-17-2024 15:23-0400 SaO2% (BldA) [Mass fraction] 99 % Hannah Brian MD Work Phone: [facility] 12-17-2024 15:23-0400 Systolic blood pressure 128 mm[Hg] Hannah Brian MD Work Phone: [facility] 11-25-2024 11:32-0400 Body height 160 cm Hannah Brian MD Work Phone: [facility] 11-25-2024 11:32-0400 Body mass index (BMI) [Ratio] 24.45 kg/m2 Hannah Brian MD Work Phone: [facility] 11-25-2024 11:32-0400 Body temperature 97.81 [degF] Hannah Brian MD Work Phone: [facility] 11-25-2024 11:32-0400 Body weight 62.6 kg Hannah Brian MD Work Phone: [facility] 11-25-2024 11:32-0400 Diastolic blood pressure 60 mm[Hg] Hannah Brian MD Work Phone: [facility] 11-25-2024 11:32-0400 Heart rate 75 /min Hannah Brian MD Work Phone: [facility] 11-25-2024 11:32-0400 SaO2% (BldA) [Mass fraction] 96 % Hannah Brian MD Work Phone: [facility] 11-25-2024 11:32-0400 Systolic blood pressure 124 mm[Hg] Hannah Brian MD Work Phone: [facility] 11-18-2024 11:43-0400 Body height 160 cm Hannah Brian MD Work Phone: [facility] 11-18-2024 11:43-0400 Body mass index (BMI) [Ratio] 23.91 kg/m2 Hannah Brian MD Work Phone: [facility] 11-18-2024 11:43-0400 Body temperature 97.81 [degF] Hannah Brian MD Work Phone: [facility] 11-18-2024 11:43-0400 Body weight 61.24 kg Hannah Brian MD Work Phone: [facility] 11-18-2024 11:43-0400 Diastolic blood pressure 60 mm[Hg] Hannah Brian MD Work Phone: [facility] [facility] 11-18-2024 11:43-0400 Heart rate 70 /min Hannah Brian MD Work Phone: [facility] 11-18-2024 11:43-0400 SaO2% (BldA) [Mass fraction] 98 % Hannah Brian MD Work Phone: [facility] 11-18-2024 11:43-0400 Systolic blood pressure 120 mm[Hg] Hannah Brian MD Work Phone: [facility] 10-08-2024 12:58-0500 Body height 160 cm Sherlyn Shine PA Work Phone: [facility] 10-08-2024 12:58-0500 Body mass index (BMI) [Ratio] 23.91 kg/m2 Sherlyn Shine PA Work Phone: [facility] 10-08-2024 12:58-0500 Body temperature 97.9 [degF] Sherlyn Shine PA Work Phone: [facility] 10-08-2024 12:58-0500 Body weight 61.24 kg Sherlyn Shine PA Work Phone: [facility] 10-08-2024 12:58-0500 Diastolic blood pressure 70 mm[Hg] Sherlyn Shine PA Work Phone: [facility] 10-08-2024 12:58-0500 Heart rate 70 /min Sherlyn Shine PA Work Phone: [facility] 10-08-2024 12:58-0500 SaO2% (BldA) [Mass fraction] 97 % Sherlyn Shine PA Work Phone: [facility] 10-08-2024 12:58-0500 Systolic blood pressure 120 mm[Hg] Sherlyn Shine PA Work Phone: [facility] 08-12-2024 16:09-0500 Body height 161.3 cm Rickie Braunnamiller LEGAL EXECUTIVE ASSISTANT Work Phone: [facility] 08-12-2024 16:09-0500 Body mass index (BMI) [Ratio] 22.39 kg/m2 Rickie Donnamiller LEGAL EXECUTIVE ASSISTANT Work Phone: [facility] 08-12-2024 16:09-0500 Body temperature 97.7 [degF] Rickie Braunnamiller LEGAL EXECUTIVE ASSISTANT Work Phone: [facility] 08-12-2024 16:09-0500 Body weight 58.24 kg Rickie Braunnamiller LEGAL EXECUTIVE ASSISTANT Work Phone: [facility] 08-12-2024 16:09-0500 Diastolic blood pressure 70 mm[Hg] Rickie Braunnamiller LEGAL EXECUTIVE ASSISTANT Work Phone: [facility] 08-12-2024 16:09-0500 Heart rate 73 /min Rickie Kumariller LEGAL EXECUTIVE ASSISTANT Work Phone: [facility] 08-12-2024 16:09-0500 SaO2% (BldA) [Mass fraction] 99 % Rickie Kumariller LEGAL EXECUTIVE ASSISTANT Work Phone: [facility] 08-12-2024 16:09-0500 Systolic blood pressure 124 mm[Hg] Rickie Donnamiller LEGAL EXECUTIVE ASSISTANT Work Phone: [facility] 08-05-2024 15:19-0500 Body height 161.3 cm Stephan Boo DO Work Phone: [facility] 08-05-2024 15:19-0500 Body mass index (BMI) [Ratio] 21.8 kg/m2 Stephan Boo DO Work Phone: [facility] 08-05-2024 15:19-0500 Body weight 56.7 kg Stephan Boo DO Work Phone: [facility] 08-05-2024 15:19-0500 Diastolic blood pressure 84 mm[Hg] Stephan Boo DO Work Phone: [facility] 08-05-2024 15:19-0500 Systolic blood pressure 130 mm[Hg] Stephan Boo DO Work Phone: [facility] 07-01-2024 15:35-0500 Body height 165.1 cm Sherlyn Shine PA Work Phone: [facility] 07-01-2024 15:35-0500 Body mass index (BMI) [Ratio] 20.93 kg/m2 Sherlyn Shine PA Work Phone: [facility] 07-01-2024 15:35-0500 Body temperature 97.7 [degF] Sherlyn Shine PA Work Phone: [facility] 07-01-2024 15:35-0500 Body weight 57.06 kg Sherlyn Shine PA Work Phone: [facility] 07-01-2024 15:35-0500 Diastolic blood pressure 80 mm[Hg] Sherlyn Shine PA Work Phone: [facility] 07-01-2024 15:35-0500 Heart rate 86 /min Sherlyn Shine PA Work Phone: [facility] 07-01-2024 15:35-0500 SaO2% (BldA) [Mass fraction] 98 % Sherlyn Shine PA Work Phone: [facility] 07-01-2024 15:35-0500 Systolic blood pressure 120 mm[Hg] Sherlyn Shine PA Work Phone: [facility] 06-27-2024 11:13-0500 Body mass index (BMI) [Ratio] 19.97 kg/m2 Raphael Goldsmith MD Work Phone: [facility] 06-27-2024 11:13-0500 Body temperature 96.6 [degF] Raphael Goldsmith MD Work Phone: [facility] 06-27-2024 11:13-0500 Body weight 54.43 kg Raphael Goldsmith MD Work Phone: [facility] 06-27-2024 11:13-0500 Diastolic blood pressure 60 mm[Hg] Raphael Goldsmith MD Work Phone: [facility] 06-27-2024 11:13-0500 Heart rate 83 /min Raphael Goldsmith MD Work Phone: [facility] 06-27-2024 11:13-0500 Systolic blood pressure 149 mm[Hg] Raphael Goldsmith MD Work Phone: [facility] 11-22-2023 20:52-0400 Body temperature 97.7 [degF] Jaysonapril Calloway [facility] 11-22-2023 20:52-0400 Diastolic blood pressure 80 mm[Hg] Jayson Brodie [facility] 11-22-2023 20:52-0400 Heart rate 60 /min Jayson Brodie [facility] 11-22-2023 20:52-0400 Respiratory rate 17 /min Jayson Brodie [facility] 11-22-2023 20:52-0400 SaO2% (BldA) [Mass fraction] 100 % Jayson Brodie [facility] 11-22-2023 20:52-0400 Systolic blood pressure 147 mm[Hg] Jayson Brodie [facility] 11-22-2023 18:32-0400 Heart rate 87 /min Jayson Brodie [facility] 11-22-2023 18:32-0400 Respiratory rate 18 /min Jayson Brodie [facility] 11-22-2023 18:32-0400 SaO2% (BldA) [Mass fraction] 98 % Jayson Brodie [facility] 11-22-2023 17:50-0400 Diastolic blood pressure 80 mm[Hg] Jayson Brodie [facility] 11-22-2023 17:50-0400 Heart rate 68 /min Jayson Brodie [facility] 11-22-2023 17:50-0400 Respiratory rate 18 /min Jayson Brodie [facility] 11-22-2023 17:50-0400 SaO2% (BldA) [Mass fraction] 98 % Jayson Brodie [facility] 11-22-2023 17:50-0400 Systolic blood pressure 134 mm[Hg] Jayson Calloway [facility] 11-22-2023 16:24-0400 Body temperature 96.8 [degF] Jayson Calloway [facility] 11-22-2023 16:24-0400 Diastolic blood pressure 68 mm[Hg] Jayson Brodie [facility] 11-22-2023 16:24-0400 Systolic blood pressure 131 mm[Hg] Jayson Calloway [facility] 10-05-2023 21:54-0500 Diastolic blood pressure 81 mm[Hg] Kaylinn Dokken [facility] 10-05-2023 21:54-0500 Heart rate 75 /min Kaylinn Dokken [facility] 10-05-2023 21:54-0500 Respiratory rate 19 /min Kaylinn Dokken [facility] 10-05-2023 21:54-0500 SaO2% (BldA) [Mass fraction] 100 % Kaylinn Dokken [facility] 10-05-2023 21:54-0500 Systolic blood pressure 144 mm[Hg] Kaylinn Dokken [facility] 10-05-2023 18:04-0500 Body temperature 97.7 [degF] Caitlyninn Dokken [facility] 10-05-2023 18:04-0500 Diastolic blood pressure 78 mm[Hg] Lisylinn Dokken [facility] 10-05-2023 18:04-0500 Heart rate 95 /min Caitlyninn Dokken [facility] 10-05-2023 18:04-0500 Respiratory rate 22 /min Lisylinn Dokken [facility] 10-05-2023 18:04-0500 SaO2% (BldA) [Mass fraction] 100 % Aran kken [facility] 10-05-2023 18:04-0500 Systolic blood pressure 131 mm[Hg] Aran Dokken [facility] 09-26-2023 09:13-0500 Body height 165.1 cm Ana Switchback [employer] Work Phone: [facility] 09-26-2023 09:13-0500 Body weight 50.8 kg Ana Switchback [employer] Work Phone: [facility] 09-26-2023 09:13-0500 Diastolic blood pressure 57 mm[Hg] Ana Switchback [employer] Work Phone: [facility] 09-26-2023 09:13-0500 Heart rate 72 /min Ana Switchback [employer] Work Phone: [facility] 09-26-2023 09:13-0500 Respiratory rate 20 /min Ana Switchback [employer] Work Phone: [facility] 09-26-2023 09:13-0500 SaO2% (BldA) [Mass fraction] 98 % Ana Concha [employer] Work Phone: [facility] 09-26-2023 09:13-0500 Systolic blood pressure 118 mm[Hg] Ana Rivas [employer] Work Phone: [facility] 09-18-2023 17:51-0500 Body height 165.1 cm Peggy Nazario MD Work Phone: [facility] 09-18-2023 17:51-0500 Body mass index (BMI) [Ratio] 19.34 kg/m2 Peggy Nazario MD Work Phone: [facility] 09-18-2023 17:51-0500 Body temperature 98.01 [degF] Peggy Nazario MD Work Phone: [facility] 09-18-2023 17:51-0500 Body weight 52.71 kg Peggy Nazario MD Work Phone: [facility] 09-18-2023 17:51-0500 Diastolic blood pressure 66 mm[Hg] Peggy Nazario MD Work Phone: [facility] 09-18-2023 17:51-0500 Heart rate 75 /min Peggy Nazario MD Work Phone: [facility] 09-18-2023 17:51-0500 SaO2% (BldA) [Mass fraction] 99 % Peggy Nazario MD Work Phone: [facility] 09-18-2023 17:51-0500 Systolic blood pressure 136 mm[Hg] Peggy Nazario MD Work Phone: [facility] 09-17-2023 06:00-0500 Diastolic blood pressure 60 mm[Hg] Parveen Armen [facility] 09-17-2023 06:00-0500 Heart rate 61 /min Parveen Armen [facility] 09-17-2023 06:00-0500 Mean blood pressure 79 mm[Hg] Parveen Armen [facility] 09-17-2023 06:00-0500 Respiratory rate 11 /min Parveen Armen [facility] 09-17-2023 06:00-0500 SaO2% (BldA) [Mass fraction] 100 % Parveen Armen [facility] 09-17-2023 06:00-0500 Systolic blood pressure 118 mm[Hg] Parveen Armen [facility] 09-17-2023 05:06-0500 Body temperature 96.98 [degF] Parveen Armen [facility] 09-17-2023 05:06-0500 Diastolic blood pressure 58 mm[Hg] Parveen Armen [facility] 09-17-2023 05:06-0500 gluc 79 mg/dL Parveen Armen [facility] 09-17-2023 05:06-0500 gluc Parveen Armen [facility] 09-17-2023 05:06-0500 Heart rate 85 /min Parveen Armen [facility] 09-17-2023 05:06-0500 Respiratory rate 20 /min Parveen Armen [facility] 09-17-2023 05:06-0500 SaO2% (BldA) [Mass fraction] 98 % Parveen Armen [facility] 09-17-2023 05:06-0500 Systolic blood pressure 140 mm[Hg] Parveen Armen [facility] 09-12-2023 06:38-0500 Diastolic blood pressure 93 mm[Hg] Parveen Armen [facility] 09-12-2023 06:38-0500 Heart rate 78 /min Parveen Armen [facility] 09-12-2023 06:38-0500 Mean blood pressure 109 mm[Hg] Parveen Armen [facility] 09-12-2023 06:38-0500 Respiratory rate 13 /min Parveen Armen [facility] 09-12-2023 06:38-0500 SaO2% (BldA) [Mass fraction] 98 % Parveen Armen [facility] 09-12-2023 06:38-0500 Systolic blood pressure 142 mm[Hg] Parveen Armen [facility] 09-12-2023 05:58-0500 Diastolic blood pressure 96 mm[Hg] Parveen Armen [facility] 09-12-2023 05:58-0500 Heart rate 55 /min Parveen Armen [facility] 09-12-2023 05:58-0500 Mean blood pressure 112 mm[Hg] Parveen Armen [facility] 09-12-2023 05:58-0500 Respiratory rate 16 /min Parveen Armen [facility] 09-12-2023 05:58-0500 SaO2% (BldA) [Mass fraction] 100 % Parveen Armen [facility] 09-12-2023 05:58-0500 Systolic blood pressure 144 mm[Hg] Parveen Armen [facility] 09-12-2023 04:56-0500 Diastolic blood pressure 77 mm[Hg] Parveen Armen [facility] 09-12-2023 04:56-0500 Heart rate 60 /min Parveen Armen [facility] 09-12-2023 04:56-0500 Mean blood pressure 94 mm[Hg] Parveen Armen [facility] 09-12-2023 04:56-0500 Respiratory rate 18 /min Parveen Armen [facility] 09-12-2023 04:56-0500 SaO2% (BldA) [Mass fraction] 100 % Parveen Armen [facility] 09-12-2023 04:56-0500 Systolic blood pressure 129 mm[Hg] Parveen Armen [facility] 09-12-2023 04:27-0500 gluc 96 mg/dL Parveen Armen [facility] 09-12-2023 04:27-0500 gluc Parveen Armen [facility] 09-12-2023 04:13-0500 Body temperature 96.98 [degF] Parveen Armen [facility] 09-12-2023 04:13-0500 Heart rate 83 /min Parveen Armen [facility] 09-12-2023 04:13-0500 Respiratory rate 16 /min Parveen Armen [facility] 08-11-2023 08:55-0500 Body height 165.1 cm Peggy Nazario MD Work Phone: [facility] 08-11-2023 08:55-0500 Body mass index (BMI) [Ratio] 19.44 kg/m2 Peggy Nazario MD Work Phone: [facility] 08-11-2023 08:55-0500 Body temperature 97.9 [degF] Peggy Nazario MD Work Phone: [facility] 08-11-2023 08:55-0500 Body weight 52.98 kg Peggy Nazario MD Work Phone: [facility] 08-11-2023 08:55-0500 Diastolic blood pressure 68 mm[Hg] Peggy Nazario MD Work Phone: [facility] 08-11-2023 08:55-0500 Heart rate 69 /min Peggy Nazario MD Work Phone: [facility] 08-11-2023 08:55-0500 SaO2% (BldA) [Mass fraction] 99 % Peggy Nazario MD Work Phone: [facility] 08-11-2023 08:55-0500 Systolic blood pressure 122 mm[Hg] Peggy Nazario MD Work Phone: [facility] 07-21-2023 06:46-0500 Blood Pressure Location Johan HENRIQUEZ [facility] 07-21-2023 06:46-0500 Diastolic blood pressure 57 mm[Hg] Johan HENRIQUEZ [facility] 07-21-2023 06:46-0500 Heart rate 81 /min Johan HENRIQUEZ [facility] 07-21-2023 06:46-0500 Respiratory rate 18 /min Johan HENRIQUEZ [facility] 07-21-2023 06:46-0500 SaO2% (BldA) [Mass fraction] 100 % Johan HENRIQUEZ [facility] 07-21-2023 06:46-0500 Systolic blood pressure 118 mm[Hg] Johan HENRIQUEZ [facility] 07-20-2023 09:56-0500 Blood Pressure Location Johan HENRIQUEZ [facility] 07-20-2023 09:56-0500 Diastolic blood pressure 52 mm[Hg] Johan HENRIQUEZ [facility] 07-20-2023 09:56-0500 Heart rate 62 /min Johan HENRIQUEZ [facility] 07-20-2023 09:56-0500 SaO2% (BldA) [Mass fraction] 98 % Johan HENRIQUEZ [facility] 07-20-2023 09:56-0500 Systolic blood pressure 105 mm[Hg] Johan HENRIQUEZ [facility] 07-07-2023 12:38-0500 Diastolic blood pressure 59 mm[Hg] Jeff Wadee [facility] 07-07-2023 12:38-0500 Heart rate 94 /min Jeff Tay [facility] 07-07-2023 12:38-0500 Respiratory rate 13 /min Jeff Tay [facility] 07-07-2023 12:38-0500 SaO2% (BldA) [Mass fraction] 94 % Jeff Tay [facility] 07-07-2023 12:38-0500 Systolic blood pressure 123 mm[Hg] Jeff Tay [facility] 07-07-2023 12:00-0500 Diastolic blood pressure 83 mm[Hg] Jeff Tay [facility] 07-07-2023 12:00-0500 Heart rate 102 /min Jeff Tay [facility] 07-07-2023 12:00-0500 Mean blood pressure 96 mm[Hg] Jeff Tay [facility] 07-07-2023 12:00-0500 Respiratory rate 17 /min Jeff Tay [facility] 07-07-2023 12:00-0500 SaO2% (BldA) [Mass fraction] 96 % Jeff Cross [facility] 07-07-2023 11:34-0500 Diastolic blood pressure 73 mm[Hg] Jeff Wadee [facility] 07-07-2023 11:34-0500 Heart rate 93 /min Jeff Wadee [facility] 07-07-2023 11:34-0500 Respiratory rate 18 /min Jeff Wadee [facility] 07-07-2023 11:34-0500 SaO2% (BldA) [Mass fraction] 94 % Jeff Wadee [facility] 07-07-2023 11:34-0500 Systolic blood pressure 109 mm[Hg] Jeff Wadee [facility] 07-07-2023 09:52-0500 Heart rate 103 /min Jeff Wadee [facility] 07-07-2023 08:57-0500 Body temperature 97.88 [degF] Jeff Wadee [facility] 07-07-2023 08:57-0500 Heart rate 134 /min Jeff Wadee [facility] 07-07-2023 08:57-0500 Respiratory rate 24 /min Jeff Wadee [facility] 07-06-2023 14:03-0500 Hourly Rounding Ronobir ABDI [facility] 07-06-2023 14:03-0500 Promise to Return Ronobir ABDI [facility] 07-06-2023 13:34-0500 Hourly Rounding Ronobir ABDI [facility] 07-06-2023 13:00-0500 Hourly Rounding Ronobir ABDI [facility] 07-06-2023 13:00-0500 Promise to Return Ronobir ABDI [facility] 07-06-2023 12:07-0500 Promise to Return Ronobir ABDI [facility] 07-06-2023 12:00-0500 Blood Pressure Location Ronobir ABDI [facility] 07-06-2023 12:00-0500 Body temperature 98.06 [degF] Ronobir ABDI [facility] 07-06-2023 12:00-0500 Diastolic blood pressure 69 mm[Hg] Ronobir ABDI [facility] 07-06-2023 12:00-0500 Heart rate 78 /min Ronobir ABDI [facility] 07-06-2023 12:00-0500 Mean blood pressure 81 mm[Hg] Ronobir ABDI [facility] 07-06-2023 12:00-0500 SaO2% (BldA) [Mass fraction] 94 % Ronobir ABDI [facility] 07-06-2023 12:00-0500 Systolic blood pressure 105 mm[Hg] Ronobir ABDI [facility] 07-06-2023 10:00-0500 Diastolic blood pressure 66 mm[Hg] Ronobir ABDI [facility] 07-06-2023 10:00-0500 Heart rate 77 /min Ronobir ABDI [facility] 07-06-2023 10:00-0500 Mean blood pressure 78 mm[Hg] Ronobir ABDI [facility] 07-06-2023 10:00-0500 Systolic blood pressure 103 mm[Hg] Ronobir ABDI [facility] 07-06-2023 07:00-0500 Body temperature 97.7 [degF] Ronobir ABDI [facility] 07-06-2023 07:00-0500 Diastolic blood pressure 60 mm[Hg] Ronobir ABDI [facility] 07-06-2023 07:00-0500 SaO2% (BldA) [Mass fraction] 93 % Ronobir ABDI [facility] 07-06-2023 07:00-0500 Systolic blood pressure 97 mm[Hg] Ronobir ABDI [facility] 07-06-2023 00:18-0500 Body temperature 97.7 [degF] Ronobir ABDI [facility] 07-06-2023 00:18-0500 SaO2% (BldA) [Mass fraction] 93 % Ronobir ABDI [facility] 07-05-2023 22:10-0500 Mean blood pressure 79 mm[Hg] Ronobir ABDI [facility] 07-05-2023 16:03-0500 Mean blood pressure 88 mm[Hg] Ronobir ABDI [facility] 07-05-2023 11:18-0500 Mean blood pressure 77 mm[Hg] Ronobir ABDI [facility] 07-05-2023 11:18-0500 Body temperature 98.06 [degF] Ronobir ADBI [facility] 11-22-2023 09:59-0500 Mean blood pressure 86 mm[Hg] Ronobir ABDI [facility] 07-05-2023 09:58-0500 Body temperature 98.42 [degF] Ronobir ABDI [facility] 07-04-2023 19:23-0500 Body temperature 97.7 [degF] Ronobir ABDI [facility] 07-03-2023 18:22-0500 BP/Pulse Patient Position Ronobir ABDI [facility] 07-03-2023 14:00-0500 Respiratory rate 17 /min Ronobir ABDI [facility] 07-03-2023 06:46-0500 Respiratory rate 18 /min Ronobir ABDI [facility] 07-03-2023 06:45-0500 BP/Pulse Patient Position Ronobir ABDI [facility] 07-03-2023 04:30-0500 Respiratory rate 16 /min Ronobir ABDI [facility] 07-03-2023 02:45-0500 Heart rate 90 /min Ronobir ABDI [facility] 07-03-2023 02:30-0500 Respiratory rate 12 /min Ronobir ABDI [facility] 07-03-2023 02:15-0500 Respiratory rate 13 /min Ronobir ABDI [facility] 07-02-2023 21:27-0500 Heart rate 141 /min Ronobir ABDI [facility] 07-02-2023 21:27-0500 Respiratory rate 18 /min Ronobir ABDI [facility] 07-01-2023 00:30-0500 Diastolic blood pressure 76 mm[Hg] Kaylinn Dokken [facility] 07-01-2023 00:30-0500 Heart rate 102 /min Kaylinn Dokken [facility] 07-01-2023 00:30-0500 Mean blood pressure 82 mm[Hg] Kaylinn Dokken [facility] 07-01-2023 00:30-0500 Respiratory rate 18 /min Kaylinn Dokken [facility] 07-01-2023 00:30-0500 SaO2% (BldA) [Mass fraction] 95 % Kaylinn Dokken [facility] 07-01-2023 00:30-0500 Systolic blood pressure 93 mm[Hg] Kaylinn Dokken [facility] 06-30-2023 23:24-0500 Diastolic blood pressure 73 mm[Hg] Kaylinn Dokken [facility] 06-30-2023 23:24-0500 Heart rate 102 /min Kaylinn Dokken [facility] 06-30-2023 23:24-0500 Mean blood pressure 92 mm[Hg] Kaylinn Dokken [facility] 06-30-2023 23:24-0500 Respiratory rate 16 /min Kaylinn Dokken [facility] 06-30-2023 23:24-0500 SaO2% (BldA) [Mass fraction] 94 % Kaylinn Dokken [facility] 11-17-2023 23:24-0500 Systolic blood pressure 130 mm[Hg] Kaylinn Dokken [facility] 06-30-2023 22:30-0500 Body temperature 97.88 [degF] Kaylinn Dokken [facility] 06-30-2023 22:30-0500 Diastolic blood pressure 112 mm[Hg] Kaylinn Dokken [facility] 06-30-2023 22:30-0500 Heart rate 114 /min Kaylinn Dokken [facility] 06-30-2023 22:30-0500 Mean blood pressure 120 mm[Hg] Kaylinn Dokken [facility] 06-30-2023 22:30-0500 Respiratory rate 18 /min Kaylinn Dokken [facility] 06-30-2023 22:30-0500 SaO2% (BldA) [Mass fraction] 100 % Kaylinn Dokken [facility] 06-30-2023 22:30-0500 Systolic blood pressure 137 mm[Hg] Kaylinn Dokken [facility] 06-30-2023 19:33-0500 Body temperature 97.7 [degF] Kaylinn Dokken [facility] 06-30-2023 19:33-0500 Heart rate 123 /min Kaylinn Dokken [facility] 04-26-2023 15:19-0400 Blood Pressure Location Micheline BROOKS [facility] 04-26-2023 15:19-0400 Diastolic blood pressure 88 mm[Hg] Micheline BROOKS [facility] 04-26-2023 15:19-0400 Heart rate 80 /min Micheline BROOKS [facility] 04-26-2023 15:19-0400 Systolic blood pressure 139 mm[Hg] Micheline BROOKS [facility] 04-04-2023 16:30-0400 Diastolic blood pressure 51 mm[Hg] Jeff Wadee [facility] 04-04-2023 16:30-0400 Heart rate 39 /min Jeff Wadee [facility] 04-04-2023 16:30-0400 Respiratory rate 14 /min Jeff Tay [facility] 04-04-2023 16:30-0400 SaO2% (BldA) [Mass fraction] 99 % Jeff Tay [facility] 04-04-2023 16:30-0400 Systolic blood pressure 145 mm[Hg] Jeff Tay [facility] 04-04-2023 15:52-0400 Body temperature 98.06 [degF] Jeff Tay [facility] 04-04-2023 15:52-0400 Diastolic blood pressure 81 mm[Hg] Jeff Tay [facility] 04-04-2023 15:52-0400 Heart rate 66 /min Jeff Tay [facility] 04-04-2023 15:52-0400 Respiratory rate 14 /min Jeff Tay [facility] 04-04-2023 15:52-0400 SaO2% (BldA) [Mass fraction] 99 % Jeff Tay [facility] 04-04-2023 15:52-0400 Systolic blood pressure 161 mm[Hg] Jeff Cross [facility] 04-04-2023 14:52-0400 Diastolic blood pressure 79 mm[Hg] Jeff Cross [facility] 04-04-2023 14:52-0400 Heart rate 64 /min Jeff Cross [facility] 04-04-2023 14:52-0400 Respiratory rate 14 /min Jeff Cross [facility] 04-04-2023 14:52-0400 SaO2% (BldA) [Mass fraction] 100 % Jeff Cross [facility] 04-04-2023 14:52-0400 Systolic blood pressure 95 mm[Hg] Jeff Cross [facility] 04-04-2023 14:07-0400 Body temperature 98.06 [degF] Jeff Cross [facility] 04-04-2023 13:52-0400 Body temperature 98.24 [degF] Jeff Cross [facility] 04-04-2023 13:52-0400 Heart rate 107 /min [facility] Cross [facility] 01-28-2023 21:23-0400 Body temperature 97.7 [degF] [facility] 01-28-2023 21:23-0400 Diastolic blood pressure 78 mm[Hg] [facility] 01-28-2023 21:23-0400 Heart rate 82 /min [facility] 01-28-2023 21:23-0400 Respiratory rate 18 /min [facility] 01-28-2023 21:23-0400 SaO2% (BldA) [Mass fraction] 97 % [facility] 01-28-2023 21:23-0400 Systolic blood pressure 125 mm[Hg] [facility] 09-01-2022 14:01-0500 Diastolic blood pressure 75 mm[Hg] Yennifer Iraheta [facility] 09-01-2022 14:01-0500 Mean blood pressure 91 mm[Hg] Yennifer Esequiel [facility] 09-01-2022 14:01-0500 Systolic blood pressure 122 mm[Hg] Yennifer Esequiel [facility] 09-01-2022 13:48-0500 Blood Pressure Location Mohstacia Esequiel [facility] 09-01-2022 13:48-0500 Diastolic blood pressure 79 mm[Hg] Yennifer Esequiel [facility] 09-01-2022 13:48-0500 Heart rate 60 /min Yennifer Esequiel [facility] 09-01-2022 13:48-0500 SaO2% (BldA) [Mass fraction] 98 % Yennifer Esequiel [facility] 09-01-2022 13:48-0500 Systolic blood pressure 149 mm[Hg] Yennifer Esequiel [facility] 06-13-2022 08:54-0400 Blood Pressure Location Mohstacia Esequiel [facility] 06-13-2022 08:54-0400 Diastolic blood pressure 68 mm[Hg] Mohstacia Esequiel [facility] 06-13-2022 08:54-0400 Heart rate 75 /min Yennifer Esequiel [facility] 06-13-2022 08:54-0400 SaO2% (BldA) [Mass fraction] 96 % Yennifer Iraheta [facility] 06-13-2022 08:54-0400 Systolic blood pressure 132 mm[Hg] Yennifer Iraheta [facility] 03-03-2022 09:59-0400 Blood Pressure Location CARMINA GARRISON [facility] 03-03-2022 09:59-0400 Diastolic blood pressure 89 mm[Hg] CARMINA GARRISON [facility] 03-03-2022 09:59-0400 Heart rate 77 /min CARMINA GARRISON [facility] 03-03-2022 09:59-0400 Systolic blood pressure 140 mm[Hg] CARMINA GARRISON [facility] 02-15-2022 13:17-0400 Body temperature 98.6 [degF] Jeff Cross [facility] 02-15-2022 13:17-0400 Diastolic blood pressure 62 mm[Hg] Jeff Cross [facility] 02-15-2022 13:17-0400 Heart rate 86 /min Jeff Cross [facility] 02-15-2022 13:17-0400 Respiratory rate 18 /min Jeff Cross [facility] 02-15-2022 13:17-0400 SaO2% (BldA) [Mass fraction] 99 % Jeff Cross [facility] 02-15-2022 13:17-0400 Systolic blood pressure 151 mm[Hg] Jeff Cross [facility] 12-24-2021 17:39-0400 Body temperature 97.7 [degF] Jeff Cross [facility] 12-24-2021 17:39-0400 Diastolic blood pressure 70 mm[Hg] Jeff Cross [facility] 12-24-2021 17:39-0400 Heart rate 81 /min Jeff Cross [facility] 12-24-2021 17:39-0400 Respiratory rate 15 /min Jeff Cross [facility] 12-24-2021 17:39-0400 SaO2% (BldA) [Mass fraction] 100 % Jeff Cross [facility] 12-24-2021 17:39-0400 Systolic blood pressure 163 mm[Hg] Jeff Cross [facility] Encounters Encounter Date Encounter Type Care Provider Facility Start: 05-14-2025 End: 05-14-2025 Shaggy Brian MD Work Phone: [facility] Start: 05-14-2025 End: 05-14-2025 Shaggy Brian MD Work Phone: [facility] Start: 05-14-2025 End: 05-14-2025 Office outpatient visit 25 minutes Hannah Brian MD Work Phone: [facility] Comment on above: Bee sting, accidenta l or unintentional, initial encounter (Primary Dx); Gastroesophageal reflux disease without esophagitis; Ear fullness, right; Fluid level behind tympanic membrane of right ear Start: 05-14-2025 End: 05-14-2025 ambulatory HANNAH BRIAN Not Available Start: 05-08-2025 End: 05-08-2025 Office outpatient visit 40 minutes Hannah Brian MD Work Phone: [facility] Comment on above: Hematuria, unspecifi ed type (Primary Dx); Painful urination; C. difficile diarrhea; Mitral valve regurgitation due to cardiomyopathy (HCC); Atrial fibrillation, persistent (HCC); longterm 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 Start: 05-08-2025 End: 05-08-2025 ambulatory HANNAH BRIAN Not Available Start: 05-08-2025 End: 05-08-2025 Bamboo lalit Brian MD Work Phone: [facility] Start: 05-08-2025 End: 05-08-2025 Shaggy Brian MD Work Phone: [facility] Start: 04-28-2025 End: 04-28-2025 Emergency department patient visit Layton Crawford [place] Start: 04-24-2025 End: 04-24-2025 ambulatory Jayson Calloway [place] Start: 04-21-2025 End: 04-21-2025 Office outpatient visit 25 minutes Hannah Brian MD Work Phone: [facility] Comment on above: Frequent urination ( Primary Dx); Painful urination; Mitral valve regurgitation due to cardiomyopathy (HCC); Exertional dyspnea; Hypertensive heart disease with heart failure (HCC); Atrial fibrillation, persistent (HCC); longterm 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; Anxiety Start: 04-21-2025 End: 04-21-2025 ambulatory HANNAH BRIAN Not Available Start: 04-19-2025 End: 04-21-2025 Telephone encounter Hannah Brian MD Work Phone: [facility] Comment on above: 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) Start: 04-19-2025 End: 04-19-2025 Emergency department patient visit Jayson Calloway [place] Start: 04-17-2025 End: 04-17-2025 Refill Hannah Brian MD Work Phone: [facility] Comment on above: Anxiety Start: 04-16-2025 End: 04-16-2025 ambulatory [facility] Start: 04-07-2025 End: 04-07-2025 Shaggy Brian MD Work Phone: [facility] Start: 04-07-2025 End: 04-07-2025 Shaggy Brian MD Work Phone: [facility] Start: 04-07-2025 End: 04-07-2025 Office outpatient visit 25 minutes Hannah Brian MD Work Phone: [facility] Comment on above: Frequent urination ( Primary Dx); Painful urination; Left lower quadrant pain; Gastroesophageal reflux disease without esophagitis; Exertional dyspnea; Mitral valve regurgitation due to cardiomyopathy (HCC); Hypertensive heart disease with heart failure (HCC); Unspecified systolic (congestive) heart failure (HCC) Start: 04-07-2025 End: 04-07-2025 ambulatory HANNAH BRIAN Not Available Start: 03-31-2025 End: 03-31-2025 ambulatory [facility] Start: 02-18-2025 End: 02-18-2025 ambulatory [facility] Start: 02-10-2025 End: 02-10-2025 ambulatory [facility] Start: 01-23-2025 End: 01-23-2025 ambulatory [facility] Start: 01-22-2025 End: 01-22-2025 Shaggy Brian MD Work Phone: [facility] Start: 01-22-2025 End: 01-22-2025 Shaggy Brian MD Work Phone: [facility] Start: 01-22-2025 End: 01-22-2025 Office outpatient visit 25 minutes Hannah Brian MD Work Phone: [facility] Comment on above: Atrial fibrillation, persistent (HCC) (CMS/HCC) (Primary Dx); 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; Mitral valve regurgitation due to cardiomyopathy (HCC) (CMS/HCC); Anxiety Start: 01-22-2025 End: 01-22-2025 ambulatory HANNAH BRIAN Not Available Start: 01-15-2025 Evaluation and manag ement of inpatient [facility] Start: 01-14-2025 Evaluation and manag ement of inpatient [facility] Start: 01-14-2025 ambulatory [facility] Start: 01-14-2025 End: 01-15-2025 Evaluation and management of inpatient [facility] Start: 01-13-2025 End: 01-13-2025 Shira Wilson [facility] Comment on above: Anxiety Start: 01-07-2025 End: 01-07-2025 Office outpatient visit 25 minutes Hannah Brian MD Work Phone: [facility] Comment on above: Atrial fibrillation, persistent (HCC) (CMS/HCC) (Primary Dx); longterm 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; Primary hypertension (CMS/HCC); Anxiety; Panic attack (CMS/HCC) Start: 01-07-2025 End: 01-07-2025 ambulatory HANNAH BRIAN Not Available Start: 01-07-2025 End: 01-07-2025 Shaggy Brian MD Work Phone: [facility] Start: 01-07-2025 End: 01-07-2025 Shaggy Brian MD Work Phone: [facility] Start: 12-23-2024 ambulatory [facility] Start: 12-17-2024 End: 12-17-2024 Office outpatient [...] Comment on above: Anxiety Start: 12-13-2024 ambulatory [facility] Start: 11-29-2024 End: 11-29-2024 ambulatory [facility] Start: 11-25-2024 End: 11-25-2024 Shaggy Brian MD Work Phone: [facility] Start: 11-25-2024 End: 11-25-2024 Shaggy Brian MD Work Phone: [facility] Start: 11-25-2024 End: 11-25-2024 Office outpatient visit 25 minutes Hannah Brian MD Work Phone: [facility] Comment on above: Acute cough (Primary Dx); Bruising; 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; Atrial fibrillation, persistent (HCC) (CMS/HCC); Primary hypertension (CMS/HCC); Cardiomyopathy, unspecified Start: 11-25-2024 End: 11-25-2024 ambulatory HANNAH BRIAN Not Available Start: 11-18-2024 End: 11-21-2024 External Result Encounter Hannah Brian MD Work Phone: [facility] External Department Unsolicited Start: 11-18-2024 End: 04-10-2025 External Result Encounter Hannah Brian MD Work Phone: [facility] External Department Unsolicited Start: 11-18-2024 End: 11-18-2024 Office outpatient visit 25 minutes Hannah Brian MD Work Phone: [facility] Comment on above: Acute cough (Primary Dx); Hematuria, unspecified type; longterm 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; Atrial fibrillation, persistent (HCC) (CMS/HCC); Primary hypertension (CMS/HCC) Start: 11-18-2024 End: 11-18-2024 ambulatory HANNAH BRIAN Not Available Start: 11-15-2024 End: 11-18-2024 Refill Hannah Brian MD Work Phone: [facility] Comment on above: Anxiety Start: 10-22-2024 End: 10-22-2024 ambulatory [facility] Start: 10-08-2024 End: 10-08-2024 Bamboo flowsheet [...] 08-20-2024 Refill Hannah Brian MD Work Phone: [facility] Comment on above: Anxiety Start: 08-12-2024 End: 08-12-2024 Office outpatient visit 25 minutes Rickie Pierrer LEGAL EXECUTIVE ASSISTANT Work Phone: [facility] Comment on above: Dysuria (Primary Dx) ; Urinary frequency; Atrial fibrillation, persistent (HCC) (CMS/HCC); 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; BMI 22.0-22.9, adult Start: 08-12-2024 End: 08-12-2024 ambulatory RICKIE A DONNAMILLER Not Available Start: 08-12-2024 End: 08-12-2024 Bamboo flowsheet Rickie A Gabbyr LEGAL EXECUTIVE ASSISTANT Work Phone: [facility] Start: 08-12-2024 End: 08-12-2024 Bamboo flowsheet Rickie A Gabbyr LEGAL EXECUTIVE ASSISTANT Work Phone: [facility] Start: 08-05-2024 End: 08-05-2024 Office outpatient visit 25 minutes Stephan Boo DO Work Phone: [facility] Comment on above: Postmenopausal atrop hic vaginitis; Breast cancer screening by mammogram Start: 08-05-2024 End: 08-05-2024 ambulatory STEPHAN BOO Not Available Start: 07-30-2024 End: 07-30-2024 ambulatory [facility] Start: 07-22-2024 End: 07-23-2024 Shira Brian MD Work Phone: [facility] Comment on above: Anxiety Start: 07-02-2024 End: 07-02-2024 ambulatory MARJ [facility] Start: 07-01-2024 End: 07-01-2024 Office outpatient visit 25 minutes Sherlyn Shine PA Work Phone: [facility] Comment on above: Dysuria Start: 07-01-2024 End: 07-01-2024 ambulatory SHERLYN SHINE Not Available Start: 07-01-2024 End: 07-01-2024 Bamboo flowsheet Sherlyn ABRAMS Work Phone: [facility] Start: 07-01-2024 End: 07-01-2024 Bamboo flowsheet Sherlyn ABRAMS Work Phone: [facility] Start: 06-27-2024 End: 06-27-2024 ambulatory PEGGY NAZARIO Facility:[facility] Start: 06-27-2024 End: 06-27-2024 Patient encounter procedure Raphael Goldsmith MD Work Phone: Urology Comment on above: Feeling of incomplet e bladder emptying (Primary Dx); Stricture of female urethra, unspecified stricture type Start: 06-10-2024 ambulatory [facility] Start: 06-10-2024 End: 06-10-2024 ambulatory [facility] Start: 06-03-2024 End: 06-03-2024 ambulatory [facility] [place] Start: 06-03-2024 End: 06-03-2024 Patient encounter procedure PATTY BERUMENCKO [facility] Start: 05-27-2024 End: 05-27-2024 ambulatory [facility] Start: 05-07-2024 End: 05-07-2024 Patient encounter procedure Raphael Goldsmith MD Work Phone: Urology Comment on above: Stricture of female urethra, unspecified stricture type (Primary Dx); Feeling of incomplete bladder emptying Start: 05-07-2024 End: 05-10-2024 ambulatory Raphael Goldsmith MD Work Phone: Urology Start: 01-24-2024 ambulatory Micheline Rothman ty:WILL Silva Start: 12-22-2023 Refill Ana Rivas APRN.CNP Work Phone: Cardiology Comment on above: Refill Request Start: 11-22-2023 End: 11-22-2023 Emergency department patient visit Jayson Calloway [facility] Start: 11-13-2023 End: 11-13-2023 ambulatory Hannah Brian [place] Start: 11-13-2023 End: 11-13-2023 Patient encounter procedure Hannah Brian [facility] Start: 10-16-2023 Telephone encounter Alea lynn MD Work Phone: Cardiology Comment on above: Patient Update Start: 10-16-2023 End: 10-16-2023 Patient encounter procedure Raphael Goldsmith MD Work Phone: Urology Comment on above: Feeling of incomplet e bladder emptying (Primary Dx); Stricture of female urethra, unspecified stricture type; Severe protein-calorie malnutrition (HCC) Start: 10-16-2023 End: 10-16-2023 ambulatory PEGGY NAZARIO Facility:[facility] Start: 10-05-2023 End: 10-05-2023 Emergency department patient visit Koby Masterson [facility] Start: 10-02-2023 Telephone encounter Alea lynn MD [...] Non-ischemic cardiomyopathy (HCC); Persistent atrial fibrillation (HCC); longterm 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; History of cardioversion; [...] Emergency department patient visit Parveen BenitezElise Ayers [facility] Start: 09-13-2023 Refill Peggy Nazario MD Work Phone: [facility] Comment on above: Anxiety Start: 09-12-2023 Refill Peggy Nazario MD Work Phone: [facility] Comment on above: Gastroesophageal ref lux disease without esophagitis Start: 09-12-2023 End: 09-12-2023 Emergency department patient visit Parveen SElise Ayers [facility] Start: 08-28-2023 End: 08-28-2023 ambulatory PEGGY NAZARIO Facility:[facility] Start: 08-24-2023 Evaluation and manag ement of inpatient AMINA PETERSEN Facility:[facility] Start: 08-23-2023 End: 08-24-2023 Patient encounter procedure Prieto Villalba DO Work Phone: [facility] Start: 08-23-2023 End: 08-24-2023 ambulatory Prieto Villalba [...] to same day surgery center Johan HENRIQUEZ [facility] Start: 07-21-2023 End: 07-21-2023 ambulatory Johan HENRIQUEZ [place] Start: 07-20-2023 End: 07-20-2023 ambulatory XXXX NONE [place] Start: 07-20-2023 End: 07-20-2023 Patient encounter procedure Johan HENRIQUEZ [facility] Start: 07-19-2023 End: 07-19-2023 ambulatory Micheline BROOKS Facility:[facility] Start: 07-07-2023 End: 07-07-2023 Emergency department patient visit Jeff Tay [facility] Start: 07-04-2023 End: 07-06-2023 Pre-admission assessment Johan HENRIQUEZ [facility] Start: 07-02-2023 End: 07-06-2023 ambulatory Mbanefo OJUKWU [place] Start: 07-02-2023 End: 07-06-2023 Observation Noman PATTON [facility] Start: 06-30-2023 End: 07-01-2023 Emergency department patient visit Koby Masterson [facility] Start: 04-26-2023 End: 04-26-2023 Patient encounter procedure Micheline BROOKS [facility] [place] Start: 04-04-2023 End: 04-04-2023 Emergency department patient visit Jeff Cross [facility] Start: 01-28-2023 End: 01-28-2023 Emergency department patient visit Layton Crawford [facility] Start: 12-05-2022 End: 12-05-2022 Patient encounter procedure Peggy Nazario [facility] Start: 10-25-2022 End: 10-25-2022 Patient encounter procedure Micheline BROOKS [facility] Start: 10-03-2022 End: 10-03-2022 Patient encounter procedure Asuncion eRyna [facility] [place] Start: 09-01-2022 End: 09-01-2022 Patient encounter procedure Yennifer Iraheta [facility] Start: 07-12-2022 End: 07-12-2022 Patient encounter procedure Yennifer Iraheta [facility] Start: 06-13-2022 End: 06-13-2022 Patient encounter procedure Yennifer Iraheta [facility] Start: 03-03-2022 End: 03-03-2022 Patient encounter procedure CARMINA GARRISON [facility] [place] Start: 02-15-2022 End: 02-15-2022 Emergency department patient visit Jeff Cross [facility] Start: 12-24-2021 End: 12-24-2021 Emergency department patient visit Jeff Cross [facility] Start: 08-11-2021 End: 11-10-2021 Patient encounter procedure Peggy Nazario [facility] Procedures Date Procedure Procedure Detail Performing Clinician Start: 05-08-2025 Urnls dip stick/tabl et rgnt non-auto w/o micrscp Hannah Brian MD Work Phone: Start: 04-07-2025 Urnls dip stick/tabl et rgnt [...] External Data Provider Start: 08-23-2023 Echocardiography AMINA TRINITY Start: 07-21-2023 Transesophageal echocardiography Johan MARTINEZ Start: 07-05-2023 Catheterization of b oth [...] Screening for malign ant neoplasm of colon [facility] Start: 01-30-2028 Urine microalbumin profile DTa P,Tdap,Td Vaccine (5 - Td or Tdap) [facility] Start: 02-21-2027 Diabetes Screening Diabetes Screenin [facility] Start: 09-26-2026 Diabetes Screening Diabetes Screenin [facility] Start: 08-31-2026 Diabetes Screening Diabetes Screenin [facility] Start: 05-14-2025 End: 05-14-2025 Patient encounter procedure 05/14/2025 11:40 AM EDT Office Visit FAWAD [place] [facility] [address] [place] [phone] Hannah Brian MD [address] [place] [address] [facility] [place] [facility] Comment on above: Arrived Start: 05-08-2025 End: 05-08-2025 Patient encounter procedure 05/08/2025 2:20 PM EDT Office Visit FAWAD Rosario [address] [place] [phone] Hannah Brian MD [address] [place] [address] [facility]rived [facility] [place] [facility] Comment on above: Arrived Start: 04-21-2025 End: 04-21-2025 Patient encounter procedure 04/21/2025 3:00 PM EDT Office Visit FAWAD [place] [facility] [address] [place] [phone] Hannah Brian MD [address] [place] [address] [facility]AD [place] [facility] Start: 04-09-2025 End: 04-09-2025 Patient encounter procedure 04/09/2025 3:20 PM EDT Office Visit [facility] [address] [place] [address] Hannah Brian MD [address] [place] [address] [facility] Start: 04-07-2025 End: 04-07-2025 Patient encounter procedure 04/07/2025 1:40 PM EDT Office Visit FAWAD [place] [facility] [address] [place] [address] Hannah Brian MD [address] [place] [address] Arrived [facility] Comment on above: Arrived Start: 01-22-2025 End: 01-22-2025 Patient encounter procedure 01/22/2025 2:00 PM EDT Office Visit [facility] [address] [place] [phone] Hannah Brian MD [address] [place] [address] Arrived [facility] Comment on above: Arrived Start: 01-07-2025 End: 01-07-2025 Patient encounter procedure [facility] Comment on above: Arrived Start: 12-17-2024 End: 12-17-2024 Patient encounter procedure [facility] Comment on above: Arrived Start: 12-17-2024 End: 12-17-2025 Bacteria identified in Urine by Culture Urine culture Microbiology Routine Right flank pain Dysuria Urinary frequency Expected: 12/17/2024 (Approximate), Expires: 12/17/2025 [facility] Work Phone: Comment on above: Expected: 12/17/2024 (Approximate), Expires: 12/17/2025 Start: 11-25-2024 End: 11-25-2024 Patient encounter procedure 11/25/2024 11:00 AM EDT Office Visit [facility] [address] [place] [phone] Hannah Brian MD [address] [place] [address] Arrived [facility] Comment on above: Arrived Start: 11-18-2024 End: 11-18-2025 Bacteria identified in Urine by Culture Urine culture Microbiology Routine Hematuria, unspecified type Expected: 11/18/2024 (Approximate), Expires: 11/18/2025 [facility] Work Phone: Comment on above: Expected: 11/18/2024 (Approximate), Expires: 11/18/2025 Start: 11-08-2024 Pneumococcal Vaccine : 65+ Years (1 of 2 - PCV) Pneumococcal Vaccine: 65+ Years (1 of 2 - PCV) [facility] Comment on above: Postponed from 03/18 (Patient Refused) Start: 10-08-2024 End: 10-08-[address] [facility] Comment on above: Arrived Start: 09-26-2024 BP Controlled (<130/80) BP Controlle d (<130/80) [facility] Start: 08-28-2024 BP Controlled (<130/80) BP Controlle d (<130/80) [facility] Start: 08-12-2024 End: 08-12-2024 Patient encounter procedure 08/12/2024 4:00 PM EST Office Visit [facility] [address] [place] [phone] Rickie Aviles NP [address] [place] [phone] Arrived [facility] Comment on above: Arrived Start: 08-05-2024 End: 08-05-2024 Patient encounter procedure 08/05/2024 2:45 PM EST Office Visit [facility] [address] [place] [phone] Stephan Boo, DO [address] [place] [address] [facility] Start: 08-05-2024 End: 10-06-2025 DBT Breast - bilateral screening Bilateral screening mammogram with tomosynthesis Imaging Routine Breast cancer screening by mammogram Expected: 08/05/2024, Expires: 10/06/2025 [facility] Work Phone: Comment on above: Expected: 08/05/2024 , Expires: 10/06/2025 Start: 07-29-2024 End: 07-29-2024 Patient encounter procedure 07/29/2024 3:45 PM EST Office Visit [facility] [address] [place] [phone] Stephan Boo, DO [address] [place] [address] [facility] Start: 07-24-2024 Medicare Annual Well ness (AWV) Medicare Annual Wellness (AWV) [facility] Start: 07-01-2024 End: 07-01-2024 Patient encounter procedure 07/01/2024 3:30 PM EST Office [facility] [address] [place] [address] Sherlyn Shine, PA [address] [place] [address] [facility] Comment on above: Arrived Start: 07-01-2024 End: [...] 11:10 AM EDT Office Visit Urology [address] [address] Raphael Goldsmith MD [address] [place] [address] 6 month follow up per cc chart Urology Comment on above: 6 month follow up pe r cc chart Start: 04-14-2024 Covid-19 Vaccine ( season) Covid-19 Vaccine () [facility] Start: 04-14-2024 Influenza vaccination [facility] Start: 11-10-2023 End: 11-10-2023 Patient encounter procedure 11/10/2023 1:00 PM EDT Office Visit FAWAD AMAYA [address] [place] [id number] Peggy Nazario MD [address] [place] [address] [facility] Start: 11-08-2023 End: 02-07-2024 Basic metabolic 2000 panel - Serum or Plasma BASIC METABOLIC PNL Lab Routine Non-rheumatic mitral regurgitation Persistent atrial fibrillation (HCC) Non-ischemic cardiomyopathy (HCC) Chronic HFrEF (heart failure with reduced ejection fraction) (HCC) Expected: 11/08/2023 (Approximate), Expires: 02/07/2024 [facility] Work Phone: Comment on above: Expected: 11/08/2023 (Approximate), Expires: 02/07/2024 Start: 11-08-2023 End: 09-26-2024 ECG COMPLETE ECG COMPLETE ECG Routine Non-rheumatic mitral regurgitation Persistent atrial fibrillation (HCC) Non-ischemic cardiomyopathy (HCC) Chronic HFrEF (heart failure with reduced ejection fraction) (HCC) Expected: 11/08/2023 (Approximate), Expires: 09/26/2024 [facility] Work Phone: Comment on above: Expected: 11/08/2023 (Approximate), Expires: 09/26/2024 Start: 10-25-2023 End: 01-24-2024 Basic metabolic 2000 panel - Serum or Plasma BASIC METABOLIC PNL Lab Routine Non-rheumatic mitral regurgitation Persistent atrial fibrillation (HCC) Non-ischemic cardiomyopathy (HCC) Chronic HFrEF (heart failure with reduced ejection fraction) (HCC) Expected: 10/25/2023, Expires: 01/24/2024 [facility] Work Phone: Comment on above: Expected: 10/25/2023 , Expires: 01/24/2024 Start: 10-25-2023 End: 09-26-2024 ECG COMPLETE ECG COMPLETE ECG Routine Non-rheumatic mitral regurgitation Persistent atrial fibrillation (HCC) Non-ischemic cardiomyopathy (HCC) Chronic HFrEF (heart failure with reduced ejection fraction) (HCC) Expected: 10/25/2023, Expires: 09/26/2024 [facility] Work Phone: Comment on above: Expected: 10/25/2023 , Expires: 09/26/2024 Start: 10-10-2023 End: 01-09-2024 Basic metabolic 2000 panel - Serum or Plasma BASIC METABOLIC PNL Lab Routine Non-rheumatic mitral regurgitation Persistent atrial fibrillation (HCC) Non-ischemic cardiomyopathy (HCC) Chronic HFrEF (heart failure with reduced ejection fraction) (HCC) Expected: 10/10/2023 (Approximate), Expires: 01/09/2024 [facility] Work Phone: Comment on above: Expected: 10/10/2023 (Approximate), Expires: 01/09/2024 Start: 10-10-2023 End: 09-26-2024 ECG COMPLETE ECG COMPLETE ECG Routine Non-rheumatic mitral regurgitation Persistent atrial fibrillation (HCC) Non-ischemic cardiomyopathy (HCC) Chronic HFrEF (heart failure with reduced ejection fraction) (HCC) Expected: 10/10/2023 (Approximate), Expires: 09/26/2024 [facility] Work Phone: Comment on above: Expected: 10/10/2023 (Approximate), Expires: 09/26/2024 Start: 10-06-2023 End: 10-06-2023 Patient encounter procedure 10/06/2023 1:00 PM EST Office Visit FAWAD QUEZADA [address] [place] [id number] Peggy Nazario MD [address] [place] [address] FAWAD QUEZADA Start: 09-26-2023 End: 12-26-2023 Basic metabolic 2000 panel - Serum or Plasma BASIC METABOLIC PNL Lab Routine Non-rheumatic mitral regurgitation Persistent atrial fibrillation (HCC) Non-ischemic cardiomyopathy (HCC) Chronic HFrEF (heart failure with reduced ejection fraction) (HCC) Expected: 09/26/2023, Expires: 12/26/2023 [facility] Work Phone: Comment on above: Expected: 09/26/2023 , Expires: 12/26/2023 Start: 08-14-2023 Advance Directive Discussion Advance Directive Discussion [facility] Start: 08-14-2023 Behavioral Health Screening Behavioral Health Screening [facility] Start: 08-14-2023 Depression Assessment Depression Ass essment [facility] Start: 04-14-2023 Covid-19 Vaccine ( season) Covid-19 Vaccine ( season) [facility] Start: 04-14-2023 Influenza vaccination Influenza Vacc ine (#1) [facility] Start: 2023 RSV Vaccine (1 - 1-d ose 75+ series) RSV Vaccine (1 - 1-dose 75+ series) [facility] Start: 08-14-2022 Advance Directive Discussion Advance Directive Discussion [facility] Start: 08-14-2022 Depression Assessment Depression Ass essment [facility] Start: 02-15-2019 Colonoscopy Colonoscopy [facility] Start: 02-15-2019 Colorectal Cancer Screening Colorectal Cancer Screening [facility] Start: 02-15-2019 Screening for malign ant neoplasm of colon [facility] Start: 2013 Bone Density Screening Bone Density Screening [facility] Start: 2013 Pneumococcal Vaccine : 65+ (1 - PCV) Pneumococcal Vaccine: 65+ (1 - PCV) [facility] Start: 2013 Pneumococcal Vaccine : 65+ (1 of 1 - PCV) Pneumococcal Vaccine: 65+ (1 of 1 - PCV) [facility] Start: 2013 Screening for osteoporosis Bone Dens ity Screening [facility] Start: 2008 RSV Vaccine (1 - 1-d ose 60+ series) RSV Vaccine (1 - 1-dose 60+ series) [facility] Start: 1998 Shingrix Vaccine (1 of 2) Abdi grix Vaccine (1 of 2) [facility] Start: 1993 Cologuard (FIT-DNA) Cologuard (FIT-D NA) [facility] Start: [address] Colonography [facility] Start: 1993 Diabetes Screening Diabetes Screenin g [facility] Start: 1993 Fecal Occult Blood Fecal Occult Bloo d [facility] Start: 1993 Lipid 1996 panel - S theresa or Plasma Lipid Screening [facility] Start: 1993 Lipid panel Lipid Screening [facility] Start: 1993 Screening for malign ant neoplasm of colon [facility] Start: 1993 Sigmoidoscopy Sigmoidoscopy [facility] Start: 1967 Pneumococcal Vaccine : 65+ Years (1 of 2 - PCV) Pneumococcal Vaccine: 65+ Years (1 of 2 - PCV) [facility] Start: 1966 Annual PCP Team Gravel Inspector luis Disease Visit Annual PCP Team Chronic Disease Visit [facility] Start: 1966 BP Controlled (<130/80) BP Controlle d (<130/80) [facility] Start: 1966 Depression Screening Depression Scre ening [facility] Start: 1966 Hepatitis C Screening Hepatitis C [facility] Start: 1966 Hepatitis C screening Hepatitis C [facility] Start: 1954 Pneumococcal Vaccine : 65+ Years (1 - PCV) Pneumococcal Vaccine: 65+ Years (1 - PCV) [facility] Start: 1954 Pneumococcal Vaccine : 65+ Years (1 of 2 - PCV) Pneumococcal Vaccine: 65+ Years (1 of 2 - PCV) [facility] Start: 1948 Covid-19 Vaccine (#1) Covid-19 Vacci ne (#1) [facility] Start: 1948 Screening for malign ant neoplasm of colon [facility] Cystourethroscopy CYSTO.PANENDO Procedures Routine Feeling of incomplete bladder emptying Stricture of female urethra, unspecified stricture type Ordered: 09/26/2023 [facility] Work Phone: Comment on above: Ordered: 09/26/2023 Dilat female urethra w/suppository&/instlj ini URETHRAL DILATION(FEMALE) Procedures Routine Stricture of female urethra, unspecified stricture type Feeling of incomplete bladder emptying Ordered: 05/07/2024 [facility] Work Phone: Comment on above: Ordered: 05/07/2024 [facility] Immunizations Immunization Date Immunization Notes Care Provider Fa [facility] 01-29-2018 tetanus toxoid, reduced diphtheria toxoid, and acellular pertussis vaccine, adsorbed Peggy Nazario MD Work Phone: [facility] 02-16-2016 tetanus and diphtheria toxoids, adsorbed, preservative free, for adult use (5 Lf of tetanus toxoid and 2 Lf of diphtheria toxoid) Peggy Nazario MD Work Phone: [facility] 12-14-2009 diphtheria, tetanus toxoids and pertussis vaccine Peggy Nazario MD Work Phone: [facility] 12-30-2004 diphtheria and tetanus toxoids, adsorbed for pediatric use Peggy Nazario MD Work Phone: [facility] NEGATED: Highlighted row has not occurred!07-20-2023 influenza virus vaccine, unspecified formulation Johan HENRIQUEZ [facility] Payers Date Payer Category Payer [facility] [id number] 2016 Unknown [id number] 2016 Unknown [id number] 2013 Medicare [id number]. [id number] 2013 Medicare [id number] 1950 Unknown [id number] 2.16.840.1.025490.3.579. 2.72 1948 Unknown [id number] 2.16840.1.744879.3.579. 2 1948 Unknown [id number] 2.840.1.819981.3.579. 2.72 1948 Unknown [id number] 2.840.1.593991.3.579. 2. 1948 Unknown [id number] 2.16840.1.759350.3.579. 2.72 1948 Unknown [id number] 2.16840.1.734848.3.579. 2. 1948 Unknown [id number] 2.16840.1.148085.3.579. 2.72 1948 Unknown [id number] 2.16840.1.746679.3.579. 2.72 1948 Unknown [id number] 2.16.840.1.595018.3.579. 2.72 1948 Unknown [id number] 2.16.840.1.610403.3.579. 2.72 1948 Unknown [id number] 2.16.840.1.939822.3.579. 2.72 1948 Unknown [id number] 2.16.840.1.999295.3.579. 2.727 1948 Unknown [id number] 2.16.840.1.385400.3.579. 2.72 1948 Unknown [id number] 2.16.840.1.927289.3.579. 2.72 1948 Unknown [id number] 2.16.840.1.390311.3.579. 2. 1948 Unknown [id number] 2.16.840.1.344805.3.579. 2.72 1948 Unknown [id number] 2.840.1.297010.3.579. 2. 1948 Unknown [id number] 2.840.1.999382.3.579. 2.1258 1948 Unknown [id number] 2.0.1.484830.3.579. 2.1258 1948 Unknown [id number] 2.840.1.892800.3.579. 2.1258 1948 Unknown [id number] 09.29.830.1.088374.3.579. 2.1258 1948 Unknown [id number] 2.840.1.550458.3.579. 2.1258 1948 Unknown [id number] 840.1.909806.3.579. 2.1258 1948 Unknown [id number] .840.1.366034.3.579. 2.125 1948 Unknown [id number] 2840.1.952470.3.579. 2.125 1948 Unknown [id number] 2.840.1.923327.3.579. 2.125 1948 Unknown [id number] 2840.1.267488.3.579. 2.125 1948 Unknown [id number] 2.16.840.1.817313.3.579. 2.1259 1948 Unknown [id number] 2.16.840.1.795594.3.579. 2.1259 1948 Unknown [id number] 2.16.840.1.362573.3.579. 2.1259 Social History Date Type Detail Facility Start: 02-23-2021 End: 04-12-2023 Tobacco smoking status Ex-smoker (finding) [facility] Comment on above: Denies Start: 07-08-2020 End: 11-25-2024 Sex Assigned At Female [facility] Tobacco smoking status Never [facility] Comment on above: Denies History of tobacco use Current smoker [facility] Start: 10-24-2017 End: 04-12-2023 Tobacco use and exposure Smokeless tobacco non-user [facility] Start: 10-24-2017 Alcohol intake Current drinke r of alcohol (finding) [facility] Start: 07-08-2020 End: 11-25-2024 History of Social function [facility] Start: 09-26-2012 End: 08-23-2023 Tobacco Comment Quit 1996. social smoker mostly [facility] Start: 1950 Sex Assigned At Not on file [facility] History of tobacco use Cigarette Smoker [facility] Start: 09-12-2023 End: 05-14-2025 Alcohol intake Ex-drinker (finding) [facility] How [...] [Reported] [facility] 11-22-2023 Functional Status N/A [facility] 10-05-2023 Functional Status N/A [facility] 09-17-2023 Functional Status N/A [facility] 09-12-2023 Functional Status N/A [facility] 07-21-2023 Functional Status No [facility] 07-20-2023 Functional Status No [facility] 07-07-2023 Functional Status N/A [facility] 07-03-2023 Functional Status N/A [facility] 07-02-2023 Functional Status [facility] 06-30-2023 Functional Status N/A [facility] 04-26-2023 Functional Status N/A [facility] 04-04-2023 Functional Status N/A [facility] 01-28-2023 Functional Status N/A [facility] 10-19-2022 Functional Status N/A [facility] 10-03-2022 Functional Status N/A [facility] 09-01-2022 Functional Status No [facility] 06-13-2022 Functional Status No [facility] 03-03-2022 Functional Status N/A [facility] 02-15-2022 Functional Status N/A [facility] Clinical Notes 12-24-2021 to 05-14-2025 Hannah Brian MD - 05/14/2025 11:40 AM Naveen Brian MD - 05/08/2025 2:20 PM Naveen Brian MD - 04/21/2025 3:00 PM EDTTelephone Encounter - Acacia Suarez - 04/19/2025 7:12 PM EDT Note Date & Type Note Facility 05-14-2025 History of Present illness Narrative Images from [...] Blood pressure 128/78, pulse 72, temperature 98.2 F, temperature source Temporal, height 5' 3 , weight 130 lb, SpO2 97%. Body mass index is 23.03 kg/m . Physical Exam General: alert & oriented, NAD Head: NC/AT Ears: R middle ear effusion noted Oral Cavity: MMM Skin: warm, dry Lungs: non labored respirations Abdomen: non distended Musculoskeletal: normal gait Extremities: no clubbing, cyanosis or edema Neurological: nonfocal Psych: mood/affect full range Assessment/Plan Harjit was seen today for immunizations. Diagnoses and [...] to monitor for. documented in this encounter [facility] 05-08-2025 History of Present illness Narrative Images from [...] Blood pressure 118/78, pulse 71, temperature 98.3 F, temperature source Temporal, height 5' 3 , weight 130 lb 12.8 oz, SpO2 98%. Body mass index is 23.17 kg/m . Physical Exam General: alert & oriented, NAD Head: NC/AT Oral Cavity: MMM Skin: warm, dry Lungs: non labored respirations Abdomen: non distended abd Musculoskeletal: normal gait Extremities: no clubbing, cyanosis or edema Neurological: nonfocal Psych: mood/affect full range Assessment/Plan Harjit was seen today for uti and immunizations. [...] - Encouraged continued follow up w/ cardiology longterm 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 documented in this encounter [facility] 04-28-2025 Note ED Patient Education Note Infectious Disease Clostridioides Difficile Infection Clostridioides difficile infection, also known as C. difficile or C. diff infection, happens when too much C. diff bacteria grows. This can cause severe diarrhea and inflammation of the colon (colitis). It is linked to recent use of antibiotic medicine. This infection can be passed from person to person (is contagious). You also may be exposed to the bacteria from contact with food, water, or surfaces that have the bacteria on them. What are the causes? Certain bacteria live in the colon and help to digest food. This infection develops when the balance of helpful bacteria in the colon changes and the C. diff bacteria grow out of control. This is often caused by taking antibiotics. What increases the risk? You may be more likely to develop this condition if you: ??? Take certain antibiotics that kill many types of bacteria or take antibiotics for a long time. ??? Have an extended stay in a hospital or long-term care facility. ??? Are older than age 65. ??? Have had a C. diff infection before or have been exposed to C. diff bacteria. ??? Have a weakened disease-fighting system (immune system). ??? Take a medicine to reduce stomach acid, such as a proton pump inhibitor, for a long time. ??? Have a serious underlying condition, such as colon cancer or inflammatory bowel disease (IBD). ??? Have had a gastrointestinal (GI) tract procedure. What are the signs or symptoms? Symptoms of this condition include: ??? Diarrhea (three or more times a day) for several days. ??? Fever. ??? Loss of appetite. ??? Nausea. ??? Swelling, pain, cramping, or tenderness in the abdomen. How is this diagnosed? This condition is diagnosed with: ??? Your medical history and a physical exam. ??? Tests, which may include: ? A test for C. diff in your stool (feces). ? Blood tests. ? Imaging tests, such as a CT scan of your abdomen. ??? A procedure in which your colon is examined. This is rare. How is this treated? Treatment for this condition may include: ??? Stopping the antibiotics that you were taking when the C. diff infection began. Do this only as told by your health care provider. ??? Taking certain antibiotics to stop C. diff growth. ??? Taking stool from a healthy person and placing it into your colon (fecal transplant). This may be done if the infection keeps coming back. ??? Having surgery to remove the infected part of the colon. This is rare. Follow these instructions at home: Medicines ??? Take orft-eua-uddzpgu and prescription medicines only as told by your health care provider. ??? Take antibiotic medicine as told by your health care provider. Do not stop taking the antibiotic even if you start to feel better. ??? Do not treat diarrhea with medicines unless your health care provider tells you to. Eating and drinking ??? Follow instructions from your health care provider about eating and drinking restrictions. ??? Eat bland foods in small amounts that are easy to digest. These include bananas, applesauce, rice, lean meats, toast, and crackers. ??? Follow instructions on replacing body fluid that has been lost (rehydrate). This may include: ? Drinking clear fluids, such as water, clear fruit juice that is diluted with water, and low-calorie sports drinks. ? Sucking on ice chips. ? Taking an oral rehydration solution (ORS). This drink is sold at pharmacies and retail stores. ??? Avoid milk, caffeine, and alcohol. ??? Drink enough fluid to keep your urine pale yellow. General instructions ??? Wash your hands often with soap and water for at least 20 seconds. Bathe or shower using soap and water daily. ??? Return to your normal activities as told by your health care provider. Ask your health care provider what activities are safe for you. ??? Be sure your home is clean before you leave the hospital or clinic to go home. Then continue daily cleaning for at least a week. ??? Keep all follow-up visits. This is important. How is this prevented? Hand hygiene ??? Wash your hands with soap and water for at least 20 seconds before preparing food and after using the bathroom. Make sure the people you live with also wash their hands often with soap and water for at least 20 seconds. ??? If you are being treated at a hospital or clinic, make sure that all health care providers and visitors wash their hands with soap and water before touching you. Contact precautions ??? Tell your health care team right away if you develop diarrhea while in a hospital or long-term care facility. ??? When visiting someone in a hospital or a long-term care facility, follow guidelines for wearing a gown, gloves, or other protective equipment. ??? If possible, avoid contact with people who have diarrhea. ??? Use a separate bathroom if you are sick and live with other people, if p (more content not included)... [facility] 04-24-2025 Note Progress Note - Steph howard Patient's stool sample resulted positive for C. difficile. The results were discussed with the ED PA and a prescription for vancomycin 125 mg PO 4 times daily for 10 days was sent to the patient's pharmacy. The patient was contacted, informed of the results, educated on the need for oral vancomycin and instructed to complete the full 10 days of therapy. The patient requested the results be faxed to her PCP Dr Brian. Patient verbalized understanding and all other questions were answered. [facility] 04-24-2025 Note I sent you a letter via email. Let me know if you were able to print/send. Thanks! [facility] 04-21-2025 History of Present illness Narrative Images from the original note were not included. Patient: Harjit Asencio : 1950 PCP: Hannah Brian MD Harjit Asencio is a 75 y.o. female presenting today for follow-up after being seen in ED. The main problem requiring evaluation was abd pain. The discharge summary and/or Transitional Care Management documentation was reviewed. Medication reconciliation was performed as indicated via the C[facility] as Reviewed timestamp. Flowsheet Row Patient Outreach from 04/21/2025 in [facility] with Loida Nathan LPN Hospital Information ED, Hospital or Snf Facility Discharge? ED Diagnosis Abd pain, diarrhea Discharge Date 04/19/25 Discharged To: Home Setting Discharge Hospital [facility] Engagement Admission Date 04/19/25 Medications Prescription Comments Probiotic and Zofran prescribed Appointments Does the patient have a primary care provider? Yes Nursing Interventions -- [04/21/25 3:[address] Brian] Self Management Patient Teaching Wrap Up Wrap Up Additional Comments Labs CT abd/pelvis, UA/Cx Review of Systems General: Denies fever, chills, fatigue, DICKINSON or weight loss/gain CV: Denies CP, palpitations or swelling in legs Resp: denies cough, SOB or wheezing GI: Denies abd pain/n/v/c/d Skin: Denies rash Neuro: Denies LH or dizziness Objective Vitals: 04/21/25 1521 BP: 120/80 Pulse: 71 Temp: 97.8 F SpO2: 97% Physical Exam General: alert & oriented, NAD Head: NC/AT Oral Cavity: MMM Skin: warm, dry Heart: RRR, systolic murmur, S1S2 nml Lungs: CTA b/l Abdomen: soft, ND/NT, BS wnl Musculoskeletal: normal gait Extremities: no clubbing, cyanosis or edema Neurological: nonfocal Psych: mood/affect full range Assessment/Plan Harjit was seen today for er follow-up. 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 Encouraged follow up with specialists as discussed Follow up if symptoms worsen or fail to improve. documented in this encounter [facility] 04-19-2025 Telephone encounter Note Per Hannah Brian MD Just talked to him. Thank you! [facility] 04-19-2025 Miscellaneous Notes Per Hannah Brian MD Just talked to him. Thank you! Harjit Asencio is a 75 y.o. female . [facility] called because pt came in today with abdominal pain and diarrhea. DR Jayson Calloway is requesting consult with Dr Brian. Please call [phone] . documented in this encounter [facility] 04-19-2025 Note ED Patient Education Note Gastroenterology Abdominal Pain, Adult Pain in the abdomen (abdominal pain) can be caused by many things. In most cases, it gets better with no treatment or by being treated at home. But in some cases, it can be serious. Your health care provider will ask questions about your medical history and do a physical exam to try to figure out what is causing your pain. Follow these instructions at home: Medicines ??? Take rmsl-ogo-kvmlgzx and prescription medicines only as told by your provider. ??? Do not take medicines that help you poop (laxatives) unless told by your provider. General instructions ??? Watch your condition for any changes. ??? Drink enough fluid to keep your pee (urine) pale yellow. Contact a health care provider if: ??? Your pain changes, gets worse, or lasts longer than expected. ??? You have severe cramping or bloating in your abdomen, or you vomit. ??? Your pain gets worse with meals, after eating, or with certain foods. ??? You are constipated or have diarrhea for more than 2?3 days. ??? You are not hungry, or you lose weight without trying. ??? You have signs of dehydration. These may include: ? Dark pee, very little pee, or no pee. ? Cracked lips or dry mouth. ? Sleepiness or weakness. ??? You have pain when you pee (urinate) or poop. ??? Your abdominal pain wakes you up at night. ??? You have blood in your pee. ??? You have a fever. Get help right away if: ??? You cannot stop vomiting. ??? Your pain is only in one part of the abdomen. Pain on the right side could be caused by appendicitis. ??? You have bloody or black poop (stool), or poop that looks like tar. ??? You have trouble breathing. ??? You have chest pain. These symptoms may be an emergency. Get help right away. Call 911. ??? Do not wait to see if the symptoms will go away. ??? Do not drive yourself to the hospital. This information is not intended to replace advice given to you by your health care provider. Make sure you discuss any questions you have with your health care provider. Document Revised: 05/17/2023 Document Reviewed: 05/17/2023 ProcessUnity Patient Education ? 2023 [employer]. [facility] 04-19-2025 Telephone encounter Note Harjit Asencio is a 75 y.o. female . [facility] [place] because pt came in today with abdominal pain and diarrhea. DR Jayson Calloway is requesting consult with Dr Brian. Please call [phone] . 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 The plan was to add Jardiance. There is note of her to being evaluated by CT surgery Dr. Sorto regarding candidacy for cardiac surgery and she was deemed high risk. She was also evaluated at [facility] cardiothoracic surgery. Initial workup for her mitral valve disease was started. Spironolactone was changed to half tablet twice a day instead of 1 tablet once a day. She was also recommended to start taking digoxin at night instead of the morning. At visit with ms on 10/16/2023 I increased her carvedilol to 6.25 mg twice daily. I asked for a cardiopulmonary excise test. After visit with ms on 10/30/2023 I added Jardiance 10 mg daily to optimize GDMT for systolic heart failure. I also started her on amiodarone to attempt rhythm control. Following that she stopped both medications due to side effects. After visit with ms on 12/01/2023 I referred her to Patty [...] She has under (more content not included)... [facility] 02-10-2025 Note [facility]iology - [facility] Subjective Harjit Asencio is a 74 y.o. year old female patient being seen for 30 day s/p MitraClip. Had echo 02/07/2025. C/o hematuria. 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 The plan was to add Jardiance. There is note of her to being evaluated by CT surgery Dr. Sorto regarding candidacy for cardiac surgery and she was deemed high risk. She was also evaluated at [facility] cardiothoracic surgery. Initial workup for her mitral valve disease was started. Spironolactone was changed to half tablet twice a day instead of 1 tablet once a day. She was also recommended to start taking digoxin at night instead of the morning. At visit with ms on 10/16/2023 I increased her carvedilol to 6.25 mg twice daily. I asked for a cardiopulmonary excise test. After visit with ms on 10/30/2023 I added Jardiance 10 mg daily to optimize GDMT for systolic heart failure. I also started her on amiodarone to attempt rhythm control. Following that she stopped both medications due to side effects. After visit with ms on 12/01/2023 I referred her to Patty [...] Patient Position: S (more content not included)... [facility] 01-23-2025 Note Patient is here toda y [...] a UTI. Review of Systems Constitutional: Negative. 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 No changes in meds at this time Encouraged continued follow up with specialists Follow up if symptoms worsen or fail to improve. documented in this encounter [facility] 01-14-2025 Note Patient: Harjit Asencio Procedure Summary Date: 01/14/25 Room / Location: [facility] FAB TECHNICIAN 3 / [facility] (Cath) Anesthesia Start: 830 Anesthesia Stop: 1214 Procedure: Transcatheter mitral valve repair Diagnosis: Nonrheumatic [...] no known notable events for this encounter. [facility] 01-14-2025 Note Patient intubated un bart observation by anesthesia [facility] 01-14-2025 Note Patient: Harjit Asencio Procedure Information Anesthesia Start Date/Time: 01/14/25 08 Procedure: Transcatheter mitral valve repair - case for general anesthesia approved by Dr Callejas, NPCR Location: [facility] FAB TECHNICIAN 3 / [facility] (Cath) Providers: Rafael Robins MD [...] with attending and resident. Additional Equipment Requests [facility] 01-14-2025 Note Arterial Line: Date/Time: 01/14/2025 9:04 [...] no complications. Additional notes: GA Staffing Performed: resident/TREATING MACHINE OPERATOR/CAA Anesthesiologist: Lobo Machado MD Resident/TREATING MACHINE OPERATOR: Margaret Briceno MD Performed by: Micheline Mendoza MD Authorized by: Lobo Machado MD [facility] 01-14-2025 Note Airway Date/Time: 01/14/2025 8:52 AM Urgency: elective Airway not difficult General Information and Staff Patient location during procedure: OR Anesthesiologist: Lobo Machado MD Resident/TREATING MACHINE OPERATOR/CAA: Margaret Briceno MD Performed: resident/TREATING MACHINE OPERATOR/CAA Indications and Patient Condition Indications for [...] 1 Number of other approaches attempted: 0 [facility] 01-13-2025 Telephone encounter Note Rx sent, HR OOO. OARRS appropriate. [facility] 01-13-2025 Miscellaneous Notes Rx sent, HR OOO. OARRS appropriate. HR OOO Pt needs refill on Lorazapam sent to [facility]. documented in this encounter [facility] 01-13-2025 Telephone encounter Note HR OOO [facility] 01-13-2025 Telephone encounter Note Pt needs refill on Lorazapam sent to [facility]. [facility] 01-07-2025 History of Present illness Narrative [...] in regimen. 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 No change in regimen. Anxiety Stable, continue to monitor. No change in regimen. Panic attack (CMS/HCC) Stable, continue to monitor. No change in regimen. documented in this encounter [facility] 12-25-2024 Note I have reviewed this patient's medical record, cardiac imaging. she has severe secondary (functional) mitral regurgitation, chronic heart failure with reduced ejection fraction and has persistent symptoms NYHA class III despite maximally tolerated guideline-directed medical therapy. I think that she is a good candidate for and would benefit from transcatheter iiuy-uc-kcfu repair. [facility] 12-23-2024 Note [facility] - [facility] Subjective Harjit Asencio is a 74 [...] insomnia Urethral stricture Urinary frequency Urinary urgency longterm 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 Paroxysmal atrial fibrillation [...] At her recent visit with cardiology at [facility] on 09/26/2023 valsartan was stopped and low-dose lisinopril 5 mg once daily was added. The plan was to add Jardiance. There is note of her to being evaluated by CT surgery Dr. Sorto regarding candidacy for cardiac surgery and she was deemed high risk. She was also evaluated at [facility] cardiothoracic surgery. Initial workup for her mitral valve disease was started. Spironolactone was changed to half tablet twice a day instead of 1 tablet once a day. She was also recommended to start taking digoxin at night instead of the morning. At visit with ms on 10/16/2023 I increased her carvedilol to [...] and are negativ (more content not included)... [facility] 12-17-2024 History of Present illness Narrative Images [...] to monitor for. documented in this encounter [facility] 11-25-2024 History of Present illness Narrative [...] meds and concerning sx to monitor for. 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 No change in regimen. Continue to follow w/ specialists Primary hypertension (CMS/HCC) Stable, continue to monitor. No change in regimen. 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 No change in regimen. Continue to follow w/ cardiology Primary hypertension (CMS/HCC) Stable, continue to monitor. No change in regimen. Continue to follow w/ cardiology documented in this encounter [facility] 10-22-2024 Note ID Electrophysiology Consult Note ID Cardiology [facility] Reason for visit: Afib+ CMP 10/22/24 Patient underwent a SCOREKEEPER-P implant on 02/28/2024 when a SCOREKEEPER-P was placed in a submuscular fashion with [...] she has done very well since her SCOREKEEPER. Device check performed on 07/30/2024 shows patient being BiV paced 98% of the time 02/22/24 Pt here to discuss about SCOREKEEPER-P Prior HPI: Harjit Asencio is a 74 [...] MR and subsequently had a visit with [facility] where evaluation was being done for surgical correction of mitral valve but was noted to have high risk and hence deferred. She also had an evaluation for the same at [facility] CT surgery and thereafter had seen in [...] Tobacco Use: Medium Risk (10/08/2024) Received from [facility] Patient History Smoking Tobacco Use: Former Smokeless Tobacco Use: Never Passive Exposure: Never Alcohol Use: Not At Risk (08/05/2024) Received from [facility] AUDIT-C Frequency of Alcohol Consumption: Never Average Number of Drinks: Patient does not drink Frequency of Binge Drinking: Never Financial Resource Strain: Not on file Food Insecurity: Not on file Transportation Needs: Not on file Physical Activity: Not on file Stress: Not on file Social Connections: Not on file Intimate Partner Violence: Unknown (10/05/2023) ID Safety & Environment Fear of Current or Ex-Partner: Not on file Emotionally Abused: Not on file Physically Abused: Not on file Sexually Abused: Not on file Physically or Sexually Abused: Not on file Depression: Not at risk (08/05/2024) Received from [facility] PHQ-2 Patient Health Questionnaire-2 Score: 0 [...] 3 LORazepam (Ativan) (more content not included)... [facility] 10-08-2024 History of Present illness Narrative Associated [...] carvedilol dosage, which was prescribed by her property controller. She has been experiencing shortness of breath, [...] and plans to discuss this with her property controller during her upcoming appointment. She has been [...] and plans to discuss this with her property controller during her upcoming appointment. She has been [...] and plans to discuss this with her property controller during her upcoming appointment. She has been [...] dosage of carvedilol was increased by her property controller. Symptoms include shortness of breath, irregular heart rhythm, and night terrors. Her blood pressure is currently stable. She is advised to discuss these symptoms with her property controller during her upcoming appointment next month. 2. [...] for this patient. documented in this encounter [facility] 09-20-2024 Telephone encounter Note Pt needs a refill on Ativan Please send to drug [facility] 09-20-2024 Miscellaneous Notes Pt needs a refill on Ativan Please send to drug [facility] documented in this encounter [facility] 08-12-2024 History of Present illness Narrative Harjit [...] Negative - 160(16) ++++ mg/dL Negative Specific Holly, UA 1 - 1.03 1.005 Blood, UA [...] persistent (HCC) (CMS/HCC) Continue current medication regimen. 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 documented in this encounter [facility] 08-05-2024 History of Present illness Narrative Images from the original note were not included. Stephan Boo, Obstetrics and Gynecology Harjit Ruiz [facility] 1950 08/05/24 [id number] Yearly Wellness Exam Chief Complaint Patient presents with Gynecologic Exam Medicare off year. LMP: MIR BS 1983 HRT: None Last pap 07-24-23 neg. [place] [facility] 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 FEMALE GENITOURINARY: fisher quahog in room - atrophic hormone - cuff [...] 08/05/24 Time 5:00PM. 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 (more content not included)... [facility] 07-02-2024 Note Patient here for fol low [...] All other systems reviewed and are negative. [facility] 07-01-2024 History of Present illness Narrative Images [...] eat. She has an appointment with a lead pharmacy technician tomorrow. She has been taking spironolactone, [...] research. She will follow up with the lead pharmacy technician and nurse practitioner tomorrow to check [...] for this patient. documented in this encounter [facility] 06-27-2024 Note [facility] 06-27-2024 History of Present illness Narrative [...] resident. @POCVISITLEDY@ Signature: Raphael Goldsmith MD Date: June 27, 2024 Time: 11:54 AM Raphael Goldsmith MD [facility]Urology [facility] [place] [facility] Monse documented in this encounter [facility] 06-27-2024 Nurse Note PROCEDURE NURSE ASSESSMENT [...] patient verbalizes understanding: yes Clarice Gardiner MA [facility] 06-27-2024 Instructions Clarice Gardiner MA - 06/27/2024 10:59 AM EST [facility] DR. RAPHAEL GOLDSMITH AFTER [...] office: Dr. Raphael Goldsmith M.D., Office PH#: [phone] After 5 pm and on weekends: Call [phone] and ask for the urologist amphibious operations officer. The doctor will need to know that you have had a cystoscopy and what symptoms you are having. documented in this encounter [facility] 06-27-2024 Nurse Note PROCEDURE NURSE ASSESSMENT [...] with drinking extra fluids. Please call the [facility] office at [phone], Monday-Monday, 8 am - 5 pm, with any questions you may have. Please ask to be transferred to the Urology nurses in the back office area. If you call after 5 PM or on the weekends, please call [phone], ask for the Urologist amphibious operations officer. Thank You, Your Urology Team documented in this encounter [facility] 06-27-2024 Nurse Note POST INSTRUCTIONS Cystoscopy [...] with drinking extra fluids. Please call the [facility] office at [phone], Monday-Monday, 8 am - 5 pm, with any questions you may have. Please ask to be transferred to the Urology nurses in the back office area. If you call after 5 PM or on the weekends, please call [phone], ask for the Urologist amphibious operations officer. Thank You, Your Urology Team [facility] 06-10-2024 Note AV NODE ABLATION PRO [...] MR and subsequently had a visit with [facility] where evaluation was being done for surgical correction of mitral valve but was noted to have high risk and hence deferred. She also had an evaluation for the same at [facility] surgery and thereafter had seen in [...] poor candidate for Afib ablation, she underwent SCOREKEEPER-P on 02/28/24. She is here for AVN [...] Continue anticoagulation. Patty Yao MD Cardiac Electrophysiology. [facility] 06-10-2024 Note Patient: Harjit Asencio Procedure Information Date/Time: 06/10/24 1200 Procedure: AV node ablation - PC APPROVED Location: [facility] WAFER FAB TECHNICIAN 1 EP / [facility]ASCULAR [facility] (Cath) Providers: Patty Yao MD Clinical information reviewed: Allergies Meds OB Status Physical Exam Airway Mallampati: II TM distance: >3 FB Cardiovascular Dental Pulmonary Abdominal Anesthesia Plan ASA 3 CSE Anesthetic plan and risks discussed with patient. Use of blood products discussed with patient who. Additional Equipment Requests [facility] 05-28-2024 Note case [facility] 05-27-2024 Note [facility] Cardiology - [facility] Germain Asencio is a 74 y.o. 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 The plan was to add Jardiance. There is note of her to being evaluated by CT surgery Dr. Sorto regarding candidacy for cardiac surgery and she was deemed high risk. She was also evaluated at [facility] cardiothoracic surgery. Initial workup for her [...] irregularly irregular. Pulse (more content not included)... [facility] 05-07-2024 Note [facility] 05-07-2024 History of Present illness Narrative [facility]VIC [...] repeat urethral dilation in 2-3 months at [place] in office -Plan to assess for atrophic vaginitis at time of urethral dilation due to patient concern for irritation around upper thigh/vagina Erika Ho MD I have personally performed a face to face diagnostic evaluation on this patient. My findings are as above. Raphael Goldsmith MD plan urethral dil per req documented in this encounter [facility] 05-07-2024 Nurse Note Post Void Residual done on patient with 0 cc residual volume remaining. MD notified. CARISSA Garvey [facility] 05-07-2024 Nurse Note Post Void Residual done on patient with 0 cc residual volume remaining. notified. CARISSA Garvey documented in this encounter [facility] 12-22-2023 Telephone encounter Note The following approved medication requests have been transmitted electronically. Requested Prescriptions Signed Prescriptions Disp Refills lisinopril (ZESTRIL) 10 mg tablet 45 tablet 0 Sig: take 1/2 tablet by mouth once daily Authorizing Provider: Benitez SAMUELS pantoprwm DR (PROTONIX) 40 mg tablet 90 tablet 0 Sig: take 1 tablet by mouth every day Authorizing Provider: Benitez SAMUELS APRN.CLOTH PIECER [facility] 12-22-2023 Miscellaneous Notes The following approved medication requests have been transmitted electronically. Requested Prescriptions Signed Prescriptions Disp Refills lisinopril (ZESTRIL) 10 mg tablet 45 tablet 0 Sig: take 1/2 tablet by mouth once daily Authorizing Provider: Benitez SAMUELS pantoprazole DR (PROTONIX) 40 mg tablet 90 tablet 0 Sig: take 1 tablet by mouth every day Authorizing Provider: Benitez SAMUELS APRN.CLOTH PIECER documented in this encounter [facility] 11-22-2023 Hospital Discharge instructions Patient Education 11/22/2023 20:40:30 Constipation, Adult, Wgqo-ja-[id number] Constipation, Adult Constipation is when a person [...] poop. Do not hold it in. Take rdhn-bkc-noxszcp and prescription medicines only as told by [...] keep your pee (urine) pale yellow. Take xoht-fwq-fhwwfjq and prescription medicines only as told by your doctor. These include any fiber supplements. This information is not intended to replace advice given to you by your health care provider. Make sure you discuss any questions you have with your health care provider. Document Revised: 06/17/2020 Document Reviewed: 06/17/2020 Process[employer] Patient Education 2022 [employer]. Follow Up Care 11/22/2023 16:18:30 With:Snehal MCMAHON, Hannah De Leon Address: [address] [place] [address]- When:11/25/2023 [facility] 10-16-2023 Miscellaneous Notes October 16, 2023 Patient Contact Number: [phone] Patient last seen within the last year: [...] Yes Gloria Mendes documented in this encounter [facility] 10-16-2023 Note [facility] 10-16-2023 History of Present illness Narrative [...] due to it helping the symptoms Pedro'S HOPS NOTE / UNIVERSAL PROTOCOL / SAFETY [...] Time: 11:18 AM documented in this encounter [facility] 10-16-2023 Note [facility] 10-16-2023 Nurse Note Actual procedure/procedure scheduled: Yes Performing provider/scheduled provider: Yes Patient was [facility] [place] S[place] offered:Patient declines Patient arrived in the room [...] Education Session: None Instruction Provided To: Patient [employer] Contractor Present: no Discipline: Nursing Learning Topic: SURVIVAL SKILLS: Symptom Management Patient Evaluation: Verbalizes understanding: Yes Supplemental Material Given: Written Material Instructed By DAWSON Farr In Department Urology . documented in this encounter [facility] 10-05-2023 Hospital Discharge instructions Patient Education 10/05/2023 21:56:35 Constipation, Adult, Qfhe-dr-Lvov Constipation, Adult Constipation is when a person [...] poop. Do not hold it in. Take hjls-wna-rpxwapc and prescription medicines only as told by [...] keep your pee (urine) pale yellow. Take hyhl-mev-lkjxttr and prescription medicines only as told by your doctor. These include any fiber supplements. This information is not intended to replace advice given to you by your health care provider. Make sure you discuss any questions you have with your health care provider. Document Revised: 06/17/2020 Document Reviewed: 06/17/2020 [employer] Patient Education 2022 [employer]. 10/05/2023 21:56:35 Gastroesophageal Reflux Disease, Adult, Gyqb-ol-Xxtn Gastroesophageal Reflux Disease, Adult Gastroesophageal reflux (ZUNILDA) [...] powder, vinegar, hot sauces, and BBQ sauce. ?Channahon fruit juices and citrus fruits, such as oranges, ronald, and limes. ?Tomato-based foods. These include red sauce, chili, salsa, and pizza with red sauce. ?Fried and fatty foods. These include donuts, georgian fries, potato chips, and high-fat dressings. ?High-fat [...] to any changes in your symptoms. Take osyv-wsr-cizdaam and prescription medicines only as told by [...] provider. Document Revised: 02/08/2021 Document Reviewed: 02/08/2021 [employer] Patient Education 2022 [employer]. 10/05/2023 21:56:35 Abdominal Pain, Adult, Xman-up-Gqtk Abdominal Pain, Adult Many things can cause belly (abdominal) pain. Most times, belly pain is not dangerous. Many cases of belly pain can be watched and treated at home. Sometimes, though, belly pain is serious. Your doctor will try to find the cause of your belly pain. Follow these instructions at home: Medicines Take dkfj-rmz-oinxjws and prescription medicines only as told by [...] your belly pain for any changes. Take jtuj-rwr-yazqbfi and prescription medicines only as told by [...] provider. Document Revised: 12/09/2019 Document Reviewed: 12/09/2019 [employer] Patient Education 2022 [employer]. Follow Up Care 10/05/2023 17:56:41 With:Johan HENRIQUEZ Address: [address] [place] [phone] Business (1) When:10/08/2023 20:57:11 With:Peggy Nazario Address: [address] [place] [phone]- Business (1) When:Within 3 Day(s) [facility] 10-05-2023 Evaluation + Plan note Extrac deepak [...] day(s), # 28 tab(s), Refills(s) 0, [facility]: [facility], 165, cm, 10/05/23 18:07:00 EST, Height/Length Dosing, 50.3, kg, 10/05/23 18:07:00 EST, Weight Dosing lidocaine topical, 200 mg, 10 mL, Soln-Oral, Oral, Once, Stop date 10/05/23 20:48:00 EST, STAT, Start date 10/05/23 20:48:00 EST ECG 12 Lead Adult Future Appointments Appointment Date:01/24/2024 02:30:00 PM Scheduled Provider:Micheline BROOKS MD Location:[facility] Appointment Type:URO Office Visit Future Scheduled Tests Laboratory* Basic Metabolic Panel 07/12/23 * Digoxin Level 07/12/23 [facility]02-19-2024 Miscellaneous Notes* Telephone Encounter - Gloria Mendes - 10/02/2023 9:35 AM EST October 02, 2023 Patient Contact Number: [phone] Patient last seen within the last year: Yes Date of last office visit: 09/26/2023 Reason For Call: Test Results; pt requesting to go over 09/26 labs Physician: Alea Harley MD Patient was informed that non-urgent calls may be returned within the next three business days. Yes Gloria Mendes documented in this encounterMagruder [facility]02-13-2024 Nurse Note* Chrissy Roberts OCCA - 09/26/2023 2:28 PM EST Post Void Residual done on patient with 45 cc residual volume remaining. MD notified. CARISSA Ferrell documented in this encounterMagruder [facility] Hospital02-13-2024 [facility]Det[facility]02-13-2024 History of Present illness Narrative* Raphael Goldsmith MD - 09/26/2023 2:15 PM EST [facility] [...] Medicine and Reconstructive Surgery documented in this encounterMagruder [facility] Hospital02-13-2024 Instructions* Patient Instructions* Ana Rivas [...] with labs and EKG documented in this encounterMagruder Memorial Hospital02-13-2024 NoteDetwiler [facility]02-13-2024 History of Present illness Narrative* Ana Rivas APRN.CNP - 09/26/2023 8:51 AM EST Images from the original note were not included. [facility] [facility] Department of Cardiovascular Medicine SECTION OF CLINICAL CARDIOLOGY OUTPATIENT VISIT DATE September 26, 2023 OUTPATIENT VISIT TYPE ESTABLISHED PRIMARY CARE PHYSICIAN: Peggy Nazario MD [address] [place] [address] REFERRING PHYSICIAN: Dr. Alea Harley [address] [facility] [address] CHIEF COMPLAINT: Established Patient HISTORY OF PRESENT [...] ECG Confirmed by fellow NANCY MCMAHON, ZIGGY ([id number]) on 09/04/2023 1:50:09 PM Confirmed by MD DEJUAN, PhD, KHUSHI ([id number]) on 09/11/2023 1:23:[address] Result Conclusion CTA CHEST (GATED) W IVCON Exam End: 08/23/2023 7:47 AM (Final result) Impression: IMPRESSION: Dilated left ventricle, biatrial enlargement. Mitral valve is noncalcified. Normal caliber thoracic aorta. Police Crime Scene Technician: PSCB Transcribe Date/Time: Aug 23 2023 11:20A [...] a plan of care. documented in this encounterMagruder Memorial Hospital02-08-2024 Miscellaneous Notes* Telephone Encounter - Carmina Reyna RN - 09/21/2023 4:[address] Harley would like patient to come in and be seen to go over this in greater detail. Work on setting her up with an LEGAL EXECUTIVE ASSISTANT and Dr. Harley would like to be in for the appointment. Next Monday. Carmina Reyna RN * Telephone Encounter - Gloria Mendes - 09/21/2023 3:33 PM EST September 21, 2023 Patient Contact Number: [phone] Patient last seen within the last year: [...] days. Yes Gloria Mendes documented in this encounterMagruder Memorial Hospital02-05-2024 History of Present illness Narrative* [...] Flowsheet Row Patient Outreach from 09/18/2023 in [facility] [employer] with Loida Nathan LPN Discharge Information ED or Hospital Discharge? ED Patient has been contacted within 1 week of being seen in the ED Yes Discharge Date 09/17/23 Discharge Hospital [facility] [DX: ACid reflux, Medication reaction] Discharged [...] for ER follow up. [facility] [place] [facility] [place] 09[facility]23 due to dizziness [...] would like a referral to a new property controller/surgeon. She states she has been told that [...] be referred to a cardiothoracic surgeon at [facility]. Discussed some risks of surgery. - Ambulatory referral to Cardiothoracic Surgery; Future Entered by _El_, acting as scribe for _Aravind_. Signature _Heath MCMAHON_ Date _09/18/2023_. The documentation recorded by the scribe accurately reflects the service(s) I personally performed and the decisions I made. documented in this encounterEllis Fischel Cancer [id number] Evaluation + Plan note Extracted from: Title:ED [...] Date:01/24/2024 02:30:00 PM Scheduled Provider:Micheline BROOKS MD Location:[facility] Appointment Type:URO Office Visit Future Scheduled Tests Laboratory* Basic Metabolic Panel 07/12/23 * Digoxin Level 07/12/23 [facility]02-04-2024 Hospital Discharge instructions Patient Education 09/17/2023 06:16:25 [...] medicines that you are allergic to. Take jlrh-vgr-jaujzuv and prescription medicines only as told by your health care provider. If you were given medicines to treat your allergic reaction, do not drive until your health care provider tells you it is safe. If you have hives or a rash: ?Use an thbb-gsh-lhginjk antihistamine as told by your health care [...] provider. Document Revised: 01/10/2022 Document Reviewed: 01/10/2022 [employer] Patient Education 2022 [employer]. 09/17/2023 06:16:25 Heartburn Heartburn Heartburn is [...] powder, vinegar, hot sauces, and barbecue sauce. ?Channahon fruit juices and citrus fruits, such as oranges, ronald, and limes. ?Tomato-based foods, such as red sauce, chili, salsa, and pizza with red sauce. ?Fried and fatty foods, such as donuts, georgian fries, potato chips, and high-fat dressings. ?High-fat [...] ask your health care provider. Medicines Take vhxe-jbu-zvryvum and prescription medicines only as told by [...] told by your health care provider. Take dbfd-yqs-mfdmixg and prescription medicines only as told by [...] provider. Document Revised: 02/03/2021 Document Reviewed: 02/03/2021 ElseOOYYO Patient Education 2022 [employer]. Follow Up Care 09/17/2023 04:56:21 With:Peggy Nazario Address: [address] [place] [address] SNEHA [phone]- Business (1) When:Within 3 Day(s) [facility]02-04-2024 Miscellaneous Notes* Telephone Encounter - Carmina Mcmahan APRN.CNP - 09/17/2023 6:25 AM EST Patient reported that she went to the ED, said her blood pressure was up instead of down this time . I didn't sleep, I can't take that medicine, there's something that don't agree with me. She reiterates that she can't take that medication (valsartan) again. Carmina Mcmahan APRN.CNP [facility]TI SOULEYMANE Machine Applicator Cementer 09/17/2023 6:29 AM documented in this encounterMagruder Memorial Hospital02-04-2024 Miscellaneous Notes* Telephone Encounter - Carmina Mcmahan APRN.CNP - 09/17/2023 4:21 AM EST [facility] Contact Center Inbound Phone Encounter DATE of SERVICE: 09/17/2023 TIME of SERVICE: 4:21 AM Status: Urgent Service/Provider: Clinical Cardiology Alea Harley MD Reason for call: Medication Issue/Question Contact information: [phone] Resolution: Reinforced education and Sent to [employer] Comments: Patient calling after waking up with [...] medication to try. Carmina Mcmahan APRN.TALIB HVTI SOULYEMANE Machine Applicator Cementer Date of Resolution: 09/17/2023 Time of Resolution 4:21 AM documented in this encounterMagruder Memorial Hospital02-02-2024 Telephone encounter Note * Telephone Encounter - Rupal Lemus - 09/15/2023 1:24 PM EST Pt calls to check status of this, wants this done as quickly as possible, states that she will haveto cut pills in half to make it through the weekend and missed one last night. [facility] [id number] Miscellaneous Notes* Telephone Encounter - Rupal Lemus [...] out completely on monday documented in this encounterEllis Fischel Cancer CenterBpoywgzwqy46-83-0561 Telephone encounter Note* Telephone Encounter - Candiscatrachita Chaconton - 09/15/2023 9:49 AM EST Pt calls to ask [facility] will be [facility] on Monday [facility] Fischel Cancer CenterAkbnwurieh56-12-9112 Telephone encounter Note* Telephone Encounter - [facility] - 09/13/2023 11:25 AM EST Pt said she would like it sent to abdirashid [facility] Fischel Cancer CenterOvcipxdrss33-54-7887 Telephone encounter Note* Telephone Encounter - Farrukh Mcmahan MA - 09/13/2023 11:06 AM EST Rx signed yesterday [place] [id number] Telephone encounter Note* Telephone Encounter - Candis Amaro - 09/13/2023 11:01 AM EST Pt calls for refill of lorazepam is almost out will be out completely on monday Ellis Fischel Cancer [id number] Evaluation + Plan noteExtracted from: Title:ED Note [...] Date:01/24/2024 02:30:00 PM Scheduled Provider:Micheline BROOKS MD Location:[facility] Appointment Type:URO Office Visit Future Scheduled Tests Laboratory* Basic Metabolic Panel 07/12/23 * Digoxin Level 07/12/23 [facility]01-30-2024 Hospital Discharge instructions Patient Education 09/12/2023 06:47:40 [...] as meditation or yoga. General instructions Take rnbt-tgt-vyaxhhs and prescription medicines only as told by [...] provider. Document Revised: 05/20/2022 Document Reviewed: 05/20/2022 Process[employer] Patient Education 2022 [employer]. 09/12/2023 06:47:40 Gastroesophageal Reflux Disease, Adult Gastroesophageal [...] powder, vinegar, hot sauces, and barbecue sauce. ?Channahon fruit juices and citrus fruits, such as oranges, ronald, and limes. ?Tomato-based foods, such as red sauce, chili, salsa, and pizza with red sauce. ?Fried and fatty foods, such as donuts, georgian fries, potato chips, and high-fat dressings. ?High-fat [...] to any changes in your symptoms. Take vkfs-hrc-eejhifw and prescription medicines only as told by [...] you have new or worsening symptoms. Take nnim-idn-ijicqst and prescription medicines only as told by [...] provider. Document Revised: 02/08/2021 Document Reviewed: 02/08/2021 [employer] Patient Education 2022 [employer] Follow Up Care 09/12/2023 04:04:55 With:Peggy Nazario Address: [address] [place] [phone]- Business (1) When:Within 3 Day(s) [facility]01-18-20[place] [address]-18-2024 [facility]Det[facility]01-18-2024 [facility]Det[facility] 08-30-2023 [facility]Det[facility]01-16-2024 [facility]Det[facility]01-16-2024 [facility]Det[facility]01-16-2024 [facility]01-15-2024 [facility]01-15-2024 Note [facility]01-15-2024 [facility]Det[facility]01-15-2024 [facility]Det[facility]01-15-2024 [facility] 08-27-2023 [facility]Det[facility]01-14-2024 [facility]Det[facility]01-13-2024 [facility]Det[facility]01-13-2024 History of Past illness Narrative* Problem Noted Date Diagnosed Date Resolved Date Acute on chronic systolic co ngestive heart failure 08/26/2023 08/27/2023 documented as of this encounter (statuses as of 09/17/2023) [facility] of Past illness Narrative* Problem Noted Date Diagnosed Date Resolved Date Acute on chronic systolic co ngestive heart failure 08/26/2023 08/27/2023 documented as of this encounter (statuses as of 09/21/2023) [facility] of Past illness Narrative* Problem Noted Date Diagnosed Date Resolved Date Acute on chronic systolic co ngestive heart failure 08/26/2023 08/27/2023 documented as of this encounter (statuses as of 09/26/2023) [facility] of Past illness Narrative* Problem Noted Date Diagnosed Date Resolved Date Acute on chronic systolic co ngestive heart failure 08/26/2023 08/27/2023 documented as of this encounter (statuses as of 09/26/2023) [facility] of Past illness Narrative* Problem Noted Date Diagnosed Date Resolved Date Acute on chronic systolic co ngestive heart failure 08/26/2023 08/27/2023 documented as of this encounter (statuses as of 09/29/2023) [facility] of Past illness Narrative* Problem Noted Date Diagnosed Date Resolved Date Acute on chronic systolic co ngestive heart failure 08/26/2023 08/27/2023 documented as of this encounter (statuses as of 10/02/2023) [facility] of Past illness Narrative* Problem Noted Date Diagnosed Date Resolved Date Acute on chronic systolic co ngestive heart failure 08/26/2023 08/27/2023 documented as of this encounter (statuses as of 10/16/2023) [facility] of Past illness Narrative* Problem Noted Date Diagnosed Date Resolved Date Acute on chronic systolic co ngestive heart failure 08/26/2023 08/27/2023 documented as of this encounter (statuses as of 10/17/2023) [facility] of Past illness Narrative* Problem Noted Date Diagnosed Date Resolved Date Acute on chronic systolic co ngestive heart failure 08/26/2023 08/27/2023 documented as of this encounter (statuses as of 10/20/2023) [facility]01[facility] NoteHNO ID: [id number] Author: NOTE, INTERFACE, ? Service: ? Author Type: ? Type: Progress Notes Filed: 08/26/2023 02:15 Note Text: Epic Scheduled Downtime: 08/26/2023 1:00:00 AM to 08/26/2023 2:04:22 [facility]01-11-2024 [facility]Det[facility]01-10-2024 Note [facility]01-10-2024 [facility]Det[facility]01-10-2024 [facility]Det[facility]12-29-2023 NoteProcedure The risk/benefits of the procedure [...] Education Routine Capillary Glucose POC Saline Lock InsertCarepartners Rehabilitation Hospitaler St. Agnes HospitalComment on above:Result Comment: Electronically Signed By: MARTINEZ MCMAHON, Johan Patino\.br\Date and Time Signed: 07/05/23 06:48 [id number] History of Present illness Narrative* Farrukhlinda Mcmahan MA - 08/11/2023 8:45 AM EST Harjit Asencio is a 73 y.o. female presents today to follow up on anxiety. HPI: Pt here today for follow up on anxiety. Pt states yesterday she had a panic attack. She received a [place] from [facility] that made her very upset and she had a panic attack. She felt like she couldn't catchher breath the rest of the day. Pt is currently on holter monitor. Pt [facility] that she is confused about and [...] Chronic fatigue syndrome Discussed. documented in this encounterEllis Fischel Cancer CenterRzynughvtx86-81-3270 Miscellaneous Notes* Telephone Encounter - Rebecca Fernandez - 07/24/2023 10:22 AM EST IN * Telephone Encounter - Katie Nicholson - 07/24/2023 10:08 AM EST Please register insurance Thank you! documented in this encounterMagruder Memorial Hospital12-11-2023 Note [id number] St[facility] 07-21-2023 Evaluation + Plan noteExtracted from: Title:Procedure Note Heart & Vascular Author:LEYDA KELLER MD, Johan Patino Date:07/21/23 Ordered: benzocaine/butamben/tetracaine topical, 3 spray(s), [place]-Top, Topical, q2min PRN Other (see comment), Routine, [...] Date:01/24/2024 02:30:00 PM Scheduled Provider:Micheline BROOKS MD Location:[facility] Appointment Type:URO Office Visit Future Scheduled Tests Laboratory* Basic Metabolic Panel 07/12/23 * Digoxin Level 07/12/23 [facility]12-08-2023 Hospital Discharge instructions Patient Education 07/21/2023 08:44:29 CV - Post-Transesophageal Echocardiogram (Custom) [place], [place] POST-TRANSESOPHAGEAL ECHOCARDIOGRAM AFTER THE PROCEDURE: Diet: [...] appointment Seek Medical Care if: Notify your property controller should you have any difficulty swallowing or coughing up blood. In the event you are unable to reach your property controller, please call [facility] at [phone] and the barbed wire machine operator will assist you. Follow Up Care 07/20/2023 11:03:45 With:Johan HENRIQUEZ Address: [address] [place] [address]- [phone] Business (1) When: Unknown Comments:-After your appointment with [facility]12-08-2023 NoteProcedure The risk/benefits of the procedure [...] plan_ Assessment/Plan Ordered: benzocaine/butamben/tetracaine topical, 3 spray(s), [place]-Top, Topical, q2min PRN Other (see comment), Routine, [...] [facility]ON ([facility]) Vital SignsKettering Health [facility] Soin Medical CenterComment on above:Result Comment: Electronically Signed By: MARTINEZ MCMAHON, Johan Ribeiro.zak\Date and Time Signed: 07/21/23 07:09 [id number] Evaluation + Plan note Future Appointments Appointment Date:07/21/2023 08:00:00 AM [facility]uled [facility] () Appointment Date:07/21/2023 08:00:00 AM Scheduled [facility]: [facility] Echo () Appointment Date:01/24/2024 02:30:00 PM Scheduled Provider:Micheline BROOKS MD Location:[facility] Appointment Type:URO Office Visit Future Scheduled Tests Laboratory* Basic Metabolic Panel 07/12/23 * Digoxin Level 07/12/23 Radiology* Echo Transesophageal 2D 07/21/23 [facility]11-29-2023 Evaluation + Plan note Future Scheduled Tests Laboratory* Basic Metabolic Panel 07/12/23 * Digoxin Level 07/12/23 [facility] 11-24-2023 Hospital Discharge instructions Patient Education 07/07/2023 [...] health careprovider. Avoid caffeine, alcohol, and certain sjwg-ruq-kndgqqp cold medicines. These may make you feel worse. Ask your pharmacist which medicines to avoid. General instructions Take yvqz-xyt-gwofrhs and prescription medicines only as told by [...] Depression Association of [place] (ADAA): www.adaa.org National [place] on Mental Illness (TAYLOR): www.taylor.org Contact a [...] department or: Call your local emergency services (911 in the [place] Call a suicide crisis helpline, such as the National Suicide Prevention Lifeline at or 499 in the [place] This is open 24 hours a day in the [place] Text the Crisis Text Line at 579869 (in the [place] Summary Taking steps to [...] provider. Document Revised: 02/23/2022 Document Reviewed: 11/21/2021 [employer] Patient Education 2022 [employer]. 07/07/2023 13:04:14 Atrial Fibrillation Atrial Fibrillation Atrial [...] electrical signals of the heart. An ambulatory batch unit treater to record your heart's activity for a [...] provider. Document Revised: 01/22/2020 Document Reviewed: 01/22/2020 [employer] Patient Education 2022 [employer]. Follow Up Care 07/07/2023 08:56:48 With:Johan HENRIQUEZ Address: [facility] [place] [address]- [phone] Business (1) When:07/10/2023 12:45:48 With:Peggy Nazario Address: [address] [place] [address]- Business (1) When:07/10/2023 12:45:46 [facility]11-24-2023 NoteAdmission and Discharge Information Admitting Physician - Noman PATTON DO Consulting Physician - Shell MCMAHON, Eb Yeh [facility] Cardio, XXXX Admitting Diagnoses: Discharge Diagnoses [...] of breath. She was subsequently admitted to [facility] with acute paroxysmal atrial fibrillation with rapid ventricular response?new onset, acute systolic congestive heart failure, elevated troponin, severe mitral regurgitation and tricuspid regurgitation, mild coronary artery disease. She was seen in consultation by the property controller and underwent cardiac catheterization and echo cardiogram. [...] is for patient to follow-up with a property controller as well as the urologist as outpatient. She may need valvular repair or replacement after follow-up with the property controller and may also require HAROON as per the property controller. Discharge time: 35 minutes. I spent 35 [...] 76.7 % Lymph Auto - 15.3 % Stephenson Auto - 7.7 % Eos Auto - 0.0 % Basophil Auto - 0.3 % Neutro Absolute - 4.7 E9/L Lymph Absolute - 0.9 E9/L Stephenson Absolute - 0.5 E9/L Eos Absolute - [...] - 79 mg/dL POC Device SN - [id number] POC User ID - [id number] POC Username - NIKHIL PAULSON CBC w/ [...] HDL - 43 mg/dL (more content not included)...[facility] Medical CenterComment on above:Result Comment: Electronically Signed By: Nahid SERRATO MD\.br\Date and Time Signed: 07/07/23 12:07 [id number] Evaluation + Plan noteExtracted from: Title:APSO Note Author:Nahid SERRATO MD Date:09/05/22 73-year-old female with history of ureteral stricture with previous dilations, anxiety disorder presented with complaints of urinary hesitancy, constipation, cough and shortness of breath and was admitted to [facility] with acute paroxysmal atrial fibrillation [...] IV Cardizem drip. Continue on Coreg, digoxin. Perioperative Manager debating on starting patient on amiodarone. Eliquis to start in 4 days after cardiac catheterization. Ordered: [facility] Care/Day Moderate 35 Minutes [id number] 2. Acute systolic congestive heart failure (I50.21: Acute systolic (congestive) heart failure) Acute systolic congestive heart failure present on admission. Seen by property controller and underwent cardiac catheterization that showed mild coronary artery disease. Also shows severe mitral regurgitation and tricuspid regurgitation with ejection fraction of 30 to 35%. Continue on aspirin, Coreg, losartan and Lasix. Ordered: [facility] Care/Day Moderate 35 Minutes [id number] 3. Severe mitral regurgitation (I34.0: Nonrheumatic mitral (valve) insufficiency) As seen on cardiac catheterization. Patient will follow-up with property controller for HAROON and then valvular repair. Perioperative Manager also considering transferring patient to or [facility]. Ordered: [facility] Care/Day Moderate 35 Minutes 09035 4. Elevated troponin (R79.89: Other specified abnormal findings of blood chemistry) Secondary to type II non-ST segment elevation myocardial infarction from above and mild coronary artery disease.. Seen by property controller and underwent cardiac catheterization that showed mild coronary artery disease. Continue on aspirin, Lipitor, and Coreg. Ordered: [facility] Care/Day Moderate 35 Minutes 15343 5. Mild coronary artery disease (I25.10: Atherosclerotic heart disease of [place] coronary artery without angina pectoris) As seen on cardiac catheterization on 07/05/2023. Continue on Lipitor and aspirin. Ordered: [facility] Care/Day Moderate 35 Minutes 55240 6. anxiety (F41.9: Anxiety disorder, unspecified) Increase [...] deep vein thrombosis (DVT) prophylaxis (Z79.899: Other it consultant (current) drug therapy) SCDs. Eliquis to resume in 4 days. Disposition: Home soon today if heart rate is under good control with plans to follow-up with property controller and urologist as outpatient. However if heart rate is still elevated then we will call [facility] or [facility] to see if we can transfer patient for valve repair/replacement. I discussed the diagnosis and plan of care with the patient at the bedside. Moderate level of MDM based on addressing above issues. This documentation was transcribed using voice recognition software. Several attempts were made to ensure accuracy. However inadvertent computerized personal injury specialist errors may be present. Nahid Serrato. [...] transfer the patient directly to the [facility] or [facility] given her logistic challenges with getting a [...] artery disease (I25.10: Atherosclerotic heart disease of [place] coronary artery without angina pectoris) 6. Pleural effusion (J90: Pleural effusion, not elsewhere classified) 7. Urinary hesitancy (R39.11: Hesitancy of micturition) 8. Other urethral stricture, female (N35.82: Other urethral stricture, female) 9. Urinary retention (R33.9: Retention of urine, unspecified) 10. Constipation (K59.00: Constipation, unspecified) 11. On deep vein thrombosis (DVT) prophylaxis (Z79.899: Other it consultant (current) drug therapy) Orders: acetaminophen, 650 mg [...] shortness of breath and was admitted to [facility] with acute paroxysmal atrial fibrillation [...] date 07/06/23 9:00:00 EST, 07/05/23 11:13:00 EST [facility] Hospital Care/Day Moderate 35 Minutes 33748 2. Acute systolic congestive heart failure (I50.21: Acute systolic (congestive) heart failure) Acute systolic congestive heart failure present on admission. Seen by property controller. She is status post cardiac catheterization that showed mild coronary artery disease. Also showed severe mitral regurgitation and tricuspid regurgitation.. Ejection fraction of 30 to 35%. Continue on aspirin, Coreg, losartan, Lasix. Ordered: [facility] Care/Day Moderate 35 Minutes 47280 3. Severe mitral regurgitation (I34.0: Nonrheumatic mitral (valve) insufficiency) Severe mitral regurgitation seen on cardiac catheterization. Follow-up with property controller as outpatient for HAROON and then valvular repair. Ordered: [facility] Care/Day Moderate 35 Minutes [id number] 4. Elevated troponin (R79.89: Other specified abnormal findings of blood chemistry) Secondary to type II non-ST segment elevation myocardial infarction from above and mild coronary artery disease.. Seen by property controller and underwent cardiac catheterization that showed mild coronary artery disease. Continue on aspirin, Lipitor, and Coreg. Ordered: furosemide, 40 mg = 1 tab(s), Tab, Oral, Daily, Routine, Start date 07/06/23 9:00:00 EST, 07/05/23 11:13:00 EST [facility] Care/Day Moderate 35 Minutes [id number] 5. Mild coronary artery disease (I25.10: Atherosclerotic heart disease of [place] coronary artery without angina pectoris) As seen on cardiac catheterization on 07/06/2023. Continue on Lipitor and aspirin. Ordered: [facility] Care/Day Moderate 35 Minutes 16842 6. Pleural effusion (J90: Pleural effusion, not [...] Other half-way (current) drug therapy) Lovenox. Disposition: Home in a.m. to follow-up with property controller and urologist. I discussed the diagnosis and plan of care with the patient at the bedside. Moderate level of MDM based on addressing above issues. This documentation was transcribed using voice recognition software. Several attempts were made to ensure accuracy. However inadvertent computerized personal injury specialist errors may be present. Nahid Serrato. Hospitalist. Orders: Basic Metabolic Panel Basic Metabolic Panel Referral to [facility] Extracted from: Title:APSO Note Author:JAZMÍN MCMAHON, Nahid Date:09/03/22 73-year-old female with history of ureteral stricture with previous dilations, anxiety disorder presented with complaints of urinary hesitancy, constipation, cough and shortness of breath and was admitted to [facility] with acute paroxysmal atrial fibrillation [...] BID, # 60 tab(s), Refills(s) 0, Pharmacy: [facility] #[id number], 165, cm, 07/02/23 21:30:00 EST, Height/Length Dosing, 55.7, kg, 07/02/23 21:30:00 EST, Weight Dosing Echo Transthoracic Complete [facility] Care/Day Moderate 35 Minutes 41833 2. Acute systolic congestive heart failure (I50.21: Acute systolic (congestive) heart failure) Acute systolic congestive heart failure present on admission. Cardiology is following. Ejection fraction of 30 to 35%. Cardiology is planning on cardiac catheterization for ischemic work-up in AM. Meanwhile continue on aspirin, Coreg, losartan. We will verify with property controller about Lasix. Ordered: [facility] Care/Day Moderate 35 Minutes 76409 3. Elevated troponin (R79.89: Other specified abnormal findings of blood chemistry) Secondary to type II non-ST segment elevation myocardial infarction from above. Echocardiogram shows ejection fraction of 30 to 35%. Perioperative Manager following with plans for cardiac catheterization in AM. Meanwhile continue on aspirin and Coreg. Ordered: Echo Transthoracic Complete [facility] Care/Day Moderate 35 Minutes [id number] 4. Pleural effusion (J90: Pleural effusion, not elsewhere classified) Small pleural effusion secondary to acute systolic congestive heart failure. Supportive care. Lasix as needed. Ordered: [facility] Care/Day Moderate 35 Minutes [id number] 5. Urinary hesitancy (R39.11: Hesitancy of micturition) Secondary to urethral stricture and urinary retention. She is status post Robles catheter placement. Urology consult reviewed by me. I appreciate and agreed recommendations. Patient will discharge with Robles catheter and leg bag to follow-up with urologist as outpatient. Ordered: [facility] Care/Day Moderate 35 Minutes [id number] 6. Other urethral stricture, female (N35.82: Other [...] Daily, NOW, Start date 07/03/23 11:16:00 EST [facility] Care/Day Moderate 35 Minutes 65087 9. On deep vein thrombosis (DVT) prophylaxis (Z79.899: Other it consultant (current) drug therapy) Lovenox. Disposition: Pending cardiac catheterization in AM. I discussed the diagnosis and plan of care with the patient at the bedside. I also spoke with the patient's daughter Mandeep over the phone. Moderate level of MDM based on addressing above issues. This documentation was transcribed using voice recognition software. Several attempts were made to ensure accuracy. However inadvertent computerized personal injury specialist errors may be present. Nahid Serrato. [...] and Plan Diagnosis Atrial fibrillation with RVR (BIV84-IL I48.91, Discharge, Medical). Constipation (YJL12-AW K59.00, Discharge, Medical). Other urethral stricture, female (QHV46-ZK N35.82, Discharge, Medical). Urinary retention (YLX95-DB R33.9, Working, Medical). Course: Worsening, Overall this [...] Complete [facility] Hospital Care/Day Moderate 35 Minutes 07636 2. Elevated troponin (R79.89: Other specified abnormal findings of blood chemistry) Secondary to type II non-ST segment elevation myocardial infarction from above. Echocardiogram ordered. Cardiology consult pending. Continue on aspirin. Ordered: Echo Transthoracic Complete [facility] Hospital Care/Day Moderate 35 Minutes 54327 3. Urinary hesitancy (R39.11: Hesitancy of micturition) Secondary to urethral stricture. Patient is status post Robles catheter placement for urinary retention. She will follow-up with urologist as outpatient. Ordered: [facility] Care/Day Moderate 35 Minutes 55395 4. Constipation (K59.00: Constipation, unspecified) Started patient on MiraLAX and lactulose. Ordered: lactulose, 20 gram = 30 mL, Syrup, Oral, Once, Stop date 07/03/23 12:00:00 EST, Routine, Start date 07/03/23 12:00:00 EST, 07/03/23 12:00:00 EST polyethylene glycol 3350, 17 gram = 1 EA, Powder-Recon, Oral, Daily, Routine, Start date 07/03/23 12:00:00 EST, 07/03/23 12:00:00 EST [facility] Care/Day Moderate 35 Minutes 79291 5. Other urethral stricture, female (N35.82: Other [...] made to ensure accuracy. However inadvertent computerized personal injury specialist errors may be present. Nahid Serrato. [...] Date:11/22/2023 01:00:00 PM Scheduled Provider:Micheline BROOKS MD Location:[facility] Appointment Type:URO Office Visit Future Scheduled Tests Laboratory* Basic Metabolic Panel 07/12/23 * Digoxin Level 07/12/23 [facility]11-22-2023 NoteCRM entered the room to discuss dc [...] Plan now to stay[facility]:Result Comment: Electronically Signed By: Margaret Grimm\Date and Time Signed: 07/05/23 15:06 [id number] Evaluation + Plan noteExtracted from: Title:Procedure Note [...] Date:11/22/2023 01:00:00 PM Scheduled Provider:Micheline BROOKS MD Location:[facility] Appointment Type:URO Office Visit Future Scheduled Tests Laboratory* Basic Metabolic Panel 07/12/23 * Digoxin Level 07/12/23 [facility]11-22-2023 Hospital Discharge instructions Patient Education 07/05/2023 09:04:47 CV - Cardiovascular Discharge Instructions (Custom) [place], [place] CARDIOVASCULAR DISCHARGE INSTRUCTIONS Diet: Resume pre-procedure [...] hours post procedure: Actoplus MetGlucophageGlucophage XR GlucovanceAvandametFortamet Dgm-qlxozvecxSnfvwrIkdk-hvwcjspbo GlumetzaJanumetMetaglip RiometGlycomet *Minimal pain, soreness and/or discomfort [...] you are interested in smoking cessation, contact [facility] at [phone], ext. [phone]. In the event you are unable to reach your physician, please call Stephan at [phone] and the barbed wire machine operator will assist you. Seek Immediate Medical Care for: Bleeding: Apply continuous pressure to the site and Call 911. Should the arm or leg become cold, numb, blue or white call your physician immediately. Signs of infection are redness, warmth, swelling, increased tenderness, colored drainage, fever or chills Chest pain Follow Up Care 07/02/2023 21:18:33 With:Johan HENRIQUEZ Address: [address] [place] [phone] Business (1) When:2 weeks Comments:Call for followup appointment With:Peggy Nazario Address: [address] [place] [address] Business (1) When:07/10/2023 13:00:00 With:Micheline BROOKS Address: [facility] [address] [place] [address] Business (1) When: Unknown Comments:Call for followup appointment re: the indwelling Robles catheter. [facility]11-21-2023 NoteCRM entered the room to discuss dc planning. PCP, DME and insurance discussed. Patient is alert andinvolved in plan of care. Contact information provided and whiteboard updated. Pt was seen by [facility], pt will be dc'd on EliExperenti. CRM will pablo check and apply coupon if needed. [place]ila [place]. ANt dc today. Pt will transport self home.[facility]:Result Comment: Electronically Signed By: Margaret Grimm.zak\Date and Time Signed: 07/04/23 10:49 [id number] NoteChief Complaint I cannot urinate Reason for [...] tab(s), Oral, Daily Ativa (more content not included)...[facility]: Result Comment: Electronically Signed By: Shell MCMAHON, Eb Yeh\.br\Date and Time Signed: 07/03/23 21:35 [id number] NoteEchocardiology Procedure Exam Date/Time Accession # Ordering Echo Transthoracic 07/03/2023 13:36 EST [id number] JAZMÍN MCMAHON, Nahid Complete CPT code 03812 [id number] Reason for Exam (Echo Transthoracic Complete) Congestive Heart Failure Report Version: 1 Study ID: [id number] [facility] [address] [place] [address] Adult Echocardiogram Report Name: HARJIT ASENCIO I Study Date: 07/03/2023, 1: 00 PM Patient Location: [address] [place] [address] : 1950 (MM/DD/YYYY) Gender: Female Age: 73 [...] Signed by: Eb Goff MD Transcribed by: [facility] Technologist: [facility]11-20-2023 Note Chief Complaint Pt presents to [...] 22:10:00) Lymph Auto: 15.3 % (07/02/23 22:10:00) Stephenson Auto: 7.7 % (07/02/23 22:10:00) Eos Auto: 0 % (07/02/23 22:10:00) Basophil Auto: 0.3 % (07/02/23 22:10:00) Neutro Absolute: 4.7 E9/L (07/02/23 22:10:00) Lymph Absolute: 0.9 E9/L Low (07/02/23 22:10:00) Stephenson Absolute: 0.5 E9/L (07/02/23 22:10:00) Eos Absolute: 0 E9/L (07/02/23:10:00) Basophil Absolute: 0 E9/L (07/02/23:10:00) PT: 13.2 second(s) High (07/02/23:10:00) INR: 1.2 (07/02/23:10:00) PTT: 30.2 second(s) (07/02/23 22:10:00) Glucose Lvl: 129 mg/dL (07/02/23 22:10:00) BUN: 13 mg/dL (07/02/23:10:00) Creatinine: 1 mg/dL (07/02/23:10:00) eGFR: 59 mL/min/1.73 m2 (07/02/23:10:00) BUN/Creat Ratio: 13 (07/02/23:10:00) Sodium Lvl: 133 mmol/L Low (07/02/23 22:10:00) Potassium Lvl: 3.8 mmol/L (07/02/23 22:10:00) Chloride: 100 mmol/L Low (07/02/23 22:10:00) CO2: 24 mmol/L (07/02/23 22:10:00) AGAP: 13 mEq/L (07/02/23 22:10:00) Calcium Lvl: 9.1 mg/dL (07/02/23 22:10:00) Alk [...] Trace2 Abnormal (07/02/23 22: (more content not included)...[facility]:Result Comment: Electronically Signed By: Noman PATTON DO\Date and Time Signed: 07/03/23 02:59 [id number] Hospital Discharge instructions Patient Education 07/01/2023 00:37:46 Abdominal Pain, Adult, Sfzr-og-Soxp Abdominal Pain, Adult Many things can cause belly (abdominal) pain. Most times, belly pain is not dangerous. Many cases of belly pain can be watched and treated at home. Sometimes, though, belly pain is serious. Your doctor will try to find the cause of your belly pain. Follow these instructions at home: Medicines Take dmwo-tuu-qcvfsdz and prescription medicines only as told by [...] your belly pain for any changes. Take tiiy-yrm-ispvygw and prescription medicines only as told by [...] provider. Document Revised: 12/09/2019 Document Reviewed: 12/09/2019 [employer] Patient Education 2022 [employer]. Follow Up Care 06/30/2023 18:51:38 With:Peggy Nazario Address: [address] [place] [address] [place] [address] Business (1) When:07/04/2023 Comments:You can use the Bentyl, Zofran every 6 hours as needed for pain and nausea. Please follow-up with your primary care doctor next 2 to 3 days for further evaluation management. Please return to the ED for any new or worsening symptoms. [facility]11-17-2023 Evaluation + Plan noteExtracted from: Title:ED Note Author:Koby Masterson DO Date :06/30/23 Abdominal pain, acute (R10.9 : Unspecified abdominal pain) Orders: dicyclomine, 20 mg = 2 mL, Injection, IntraMuscular, Once, Stop date 06/30/23 20:58:00 EST, STAT, Start date 06/30/23 20:58:00 EST, 06/30/23 20:58:00 EST dicyclomine, 10 mg = 1 cap(s), Oral, QID, X 7 day(s), # 14 cap(s), Refills(s) 0, Pharmacy: [facility] #[id number], 165, cm, 06/30/23 19:37:00 EST, Height/Length Dosing, [...] q8hr, # 12 tab(s), Refills(s) 0, Pharmacy: [facility] #[id number], 165, cm, 06/30/23 19:37:00 EST, Height/Length Dosing, 55.7, kg, 06/30/23 19:37:00 EST, Weight Dosing Automated Diff Basic Metabolic Panel CBC w/ Auto Diff CT Abdomen/Pelvis w/o Contrast eGFR Extra Blue Tube Hepatic Function Panel Lipase Level UA With Cult Reflex Future Appointments Appointment Date:11/22/2023 01:00:00 PM Scheduled Provider:Micheline BROOKS MD Location:[facility] [place] Appointment Type:URO Office Visit [facility]09-13-2023 Hospital Discharge instructions Patient Education 04/26/2023 16:09:37 [...] symptoms are. Treatment may include: Using an ulcx-amb-flarejv vaginal lubricant before sex. Using a long-acting [...] Follow these instructions at home: Medicines Take edlf-vjo-tnortzk and prescription medicines only as told by your health care provider. Do not use herbal or alternative medicines unless your health care provider says that you can. Use kvai-lwb-yaeenmz creams, lubricants, or moisturizers for dryness only [...] provider. Document Revised: 01/28/2021 Document Reviewed: 01/28/2021 [employer] Patient Education 2022 [employer]. Follow Up Care 10/25/2022 10:34:06 With:CECILIA MCMAHON, Micheline Morgan, URL Address: [facility] [address] [place] [address]- When: Unknown [facility] Shira 08-22-2023 Hospital Discharge instructions Patient [...] Follow these instructions at home: Medicines Take wisd-bxr-mnkrmsz and prescription medicines only as told by [...] Watch your condition for any changes. Take hbbg-qxv-njbdajn and prescription medicines only as told by [...] provider. Document Revised: 09/18/2020 Document Reviewed: 12/09/2019 [employer] Patient Education 2022 [employer]. Follow Up Care 04/04/2023 13:51:29 With:Peggy Nazario Address: [address] [place], [place] [phone] Business (1) When:04/07/2023 16:25:09 Comments:Call the office [...] you develop any new or worsening symptoms. [facility]06-18-2023 Hospital Discharge instructions Patient Education 01/28/2023 23:28:19 RICE Therapy for Routine Care of Injuries, Ekvh-yt-Gblc RICE Therapy for Routine Care of Injuries [...] provider. Document Revised: 05/20/2021 Document Reviewed: 05/20/2021 [employer] Patient Education 2022 [employer] 01/28/2023 23:28:19 Hand Contusion Hand Contusion [...] An elastic wrap to support your hand. Vesn-wyq-otrrydo medicines to control pain. Follow these instructions [...] sitting or lying down. General instructions Take okvv-xqx-kwkpthm and prescription medicines only as told by [...] provider. Document Revised: 11/18/2021 Document Reviewed: 11/18/2021 [employer] Patient Education 2022 [employer]. Follow Up Care 01/28/2023 21:23:51 With:Peggy Nazario Address: [address] [place] [address] [facility] (1) When:01/31/2023 Comments:Follow-up with your primary care provider in 3 to 5 days. If symptoms worsen, do not improve, or new symptoms arise please report back to emergency department for further evaluation. [facility]06-17-2023 Evaluation + Plan noteExtracted from: Title:ED Note Author:Med Medeiros PA-C te:01/28/23 Contusion of left hand (S60. 222A: Contusion of left hand, initial encounter) Orders: XR Hand 3+ Views Left Future Appointments Appointment Date:04/26/2023 03:15:00 PM Scheduled Provider:Micheline BROOKS MD Location:[facility] [place]ira Appointment Type:URO Office Visit [facility]-14-2023 Hospital Discharge instructions Patient Education 10/25/2022 10:27:36 [...] Address: [facility] [address] [place] [address]- Business (1) When:04/27/2023 10:27:19 [facility]-21-2022 Hospital Discharge instructions Patient Education 03/03/2022 10:35:19 [...] reconstructed. Follow these instructions at home: Take ruvx-qwv-jupwyjg and prescription medicines only as told by [...] 08/26/2016 Document Revised: 03/13/2019 Document Reviewed: 03/13/2019 [employer] Patient Education 2020 [employer]. Follow Up Care 02/28/2022 09:40:23 With:CARMINA GARRISON PA-C, URL Address: [address] [place] [address] [place] [address] When: Unknown [facility] Shira 07-05-2022 Hospital Discharge instructions Patient Education 02/15/2022 14:03:18 Contusion, Jplw-jf-Ovhh Contusion A contusion is a deep bruise. [...] sitting or lying down. General instructions Take trln-bcf-nbmxuxm and prescription medicines only as told by [...] is also called RICE. Youmay be given cydm-xys-lznqatl medicines for pain. Contact a doctor if [...] 01/16/2009 Document Revised: 03/22/2019 Document Reviewed: 03/22/2019 [employer] Patient Education 2020 [employer] 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 Contact a doctor if: Your symptoms do [...] 07/31/2006 Document Revised: 11/20/2019 Document Reviewed: 10/06/2017 [employer] Patient Education 2019 [employer] Follow Up Care 12/24/2021 17:34:06 With:Krysta Church Address: [address] [place] [address], [address] [place] [phone] Business (1) When:12/27/2021 18:21:21 With:Peggy Nazario Address: [address] [place] [phone]- Business (1) When:Within 3 Day(s) [facility] Future Appointments Appointment Date:03/02/2022 02:00:00 PM Scheduled Provider:Micheline BROOKS MD Location:[facility] Appointment Type:URO Office Visit Future Scheduled Tests Laboratory* [place] [facility] Future App[facility]ments Appointment Date:02/28/2022 09:30:00 AM Scheduled Provider:Yennifer Iraehta MD [facility] Appointment Type:Vascular New Patient ([facility]) Appointment Date:03/02/2022 02:00:00 PM Scheduled Provider:Micheline BROOKS MD Location:[facility] Appointment Type:URO Office Visit Future Scheduled Tests Laboratory* [place] [facility] Future Appointments Appointment Date:04/04/2022 10:00:00 AM Scheduled Provider:Yennifer Iraheta MD [facility] Appointment Type:Vascular New Patient ([facility]) Future Scheduled Tests Laboratory* COVID-19 [place] 08/12/21 [facility] Evaluation + Plan note Future Appointments Appointment Date:07/25/2022 09:15:00 AM Scheduled Provider:Yennifer Iraheta MD [facility] Appointment Type:Vascular Follow Up (FT) Appointment Date:09/26/2022 02:45:00 PM Scheduled Provider:[facility] Office Visit Future Scheduled Tests Laboratory* [place] 08/12/21 Radiology* US LE Venous Duplex Insufficiency Bilat [facility]14[facility] Future Appointments Appointment Date:07/25/2022 09:15:00 AM Scheduled Provider:[facility]enn[facility]eta [facility] Follow Up (FT) Appointment Date:09/26/2022 02:45:00 PM Scheduled Provider:[facility]iche[facility]KS [facility] Office Visit Future Scheduled Tests Laboratory* [place]-19 [place] [facility] + Plan note Future Appointments Appointment Date:09/26/2022 02:45:00 PM Scheduled Provider:[facility]icheline [facility]KS [facility] Future Appointments Appointment Date:12/05/2022 03:00:00 PM Scheduled Provider: [facility] Type:MA Screen (FT) Appointment Date:04/26/2023 03:15:00 PM Scheduled Provider:Micheline BROOKS MD [facility] Appointment Type:URO Office Visit Future Scheduled Tests Radiology* MA Mamm Screen w/CAD if perf and 3D Dawson 12[facility]05/[facility] Future Appointments Appointment Date:04/26/2023 03:15:00 PM Scheduled Provider:Micheline BROOKS MD Location:[facility] Appointment Type:URO [facility] Future Appointments Appointment Date:07/19/2023 03:00:00 PM Scheduled Provider:Micheline BROOKS MD Location:[facility] [place] Appointment Type:URO Office Visit Appointment Date:07/20/2023 10:30:00 AM Scheduled Provider:Johan HENRIQUEZ MD [facility] Type:Cardiology Inpatient Follow Up (FT) Appointment Date:11/22/2023 01:00:00 PM Scheduled Provider:Micheline BROOKS MD Location:[facility] [place]ira Appointment Type:URO Office Visit Future Scheduled Tests Laboratory* Basic Metabolic Panel 07/12/23 * Digoxin [facility]12[facility] Plan [facility] Future Appointments Appointment Date:01/24/2024 02:30:00 PM Scheduled Provider:Micheline BROOKS MD Location:[facility] [place] Appointment Type:URO Office Visit Future Scheduled Tests Laboratory* Basic Metabolic Panel 07/12/23 * Digoxin Level 07/12/23 [facility] Future Appointments Appointment Date:01/24/2024 02:30:00 PM Scheduled Provider:Micheline BROOKS MD Location:[facility] [place]ira Appointment Type:URO Office Visit Diagnostic Tests Pending * Urine Culture 11/22/23 Future Scheduled Tests Laboratory* Basic Metabolic Panel 07/12/23 * Digoxin Level 07/12/23 [facility] note* Diagnosis Anxiety Anxiety state, unspecified [facility] Diagnosis Gastroesophageal reflux disease without esophagitis Esophageal reflux [facility] Diagnosis Non-rheumatic mitral regurgitation- Primary Mitral valve disorders Chronic HFrEF (heart failure with reduced ejection fraction) (HCC) Nonrheumatic tricuspid valve regurgitation Tricuspid valve disorders, specified as nonrheumatic Non-ischemic cardiomyopathy (HCC) Other primary cardiomyopathies Persistent atrial fibrillation (HCC) Atrial fibrillation longterm 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 Long-term (current) use of 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s History of cardioversion Personal history of surgery to heart and great vessels, presenting hazards to health Primary hypertension Unspecified essential hypertension [facility] Diagnosis Mitral valve insufficiency, unspecified etiology- Primary Anxiety Anxiety state, unspecified Paroxysmal atrial fibrillation (CMS/HCC) Atrial fibrillation Other cardiomyopathy (CMS/HCC) Hospital discharge follow-up Other follow-up examination Other thrombophilia (D68.69) Atherosclerosis of aorta (I70.0) Atherosclerosis of aorta [facility] Diagnosis Feeling of incomplete bladder emptying- Primary Incomplete bladder emptying Stricture of female urethra, unspecified stricture type Severe protein-calorie malnutrition (HCC) Other severe protein-calorie malnutrition [facility] Diagnosis Screening for genitourinary condition Screening for other and unspecified genitourinary condition [facility] Diagnosis Feeling of incomplete bladder emptying- Primary Incomplete bladder emptying Stricture of female urethra, unspecified stricture type Severe protein-calorie malnutrition (HCC) Other severe protein-calorie malnutrition [facility]* Diagnosis Mitral valve regurgitation due to cardiomyopathy (HCC)- Primary [facility]* Diagnosis Non-rheumatic mitral regurgitation Mitral valve disorders Persistent atrial fibrillation (HCC) Atrial fibrillation Non-ischemic cardiomyopathy (HCC) Other primary cardiomyopathies Chronic HFrEF (heart failure with reduced ejection fraction) (HCC) [facility] Diagnosis Stricture of female urethra, unspecified stricture type- Primary Feeling of incomplete bladder emptying Incomplete bladder emptying [facility] Diagnosis Screening for genitourinary condition Screening for other and unspecified genitourinary condition [facility] Diagnosis Feeling of incomplete bladder emptying- Primary Incomplete bladder emptying Stricture of female urethra, unspecified stricture type [facility]* Diagnosis Dysuria documented in this encounter [facility]* Diagnosis Anxiety Anxiety state, unspecified documented in this encounter [facility]* Diagnosis Postmenopausal atrophic vaginitis Breast cancer screening by mammogram documented in this encounter [facility]* Diagnosis Dysuria- Primary Urinary frequency Atrial fibrillation, persistent (HCC) (CMS/HCC) longterm 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 BMI 22.0-22.9, adult documented in this encounter [facility]* Diagnosis Anxiety Anxiety state, unspecified documented in this encounter [facility]* Diagnosis Primary hypertension (CMS/HCC)- Primary Unspecified essential hypertension Atrial fibrillation, persistent (HCC) (CMS/HCC) Atherosclerosis of aorta (CMS/HCC) Atherosclerosis of aorta Panic attack (CMS/HCC) Panic disorder without agoraphobia documented in this encounter [facility]* Diagnosis Anxiety- Primary Anxiety state, unspecified Chronic fatigue syndrome Primary hypertension (CMS/HCC)- Primary Unspecified essential hypertension Atrial fibrillation, persistent (HCC) (CMS/HCC) Atherosclerosis of aorta (CMS/HCC) Atherosclerosis of aorta Panic attack (CMS/HCC) Panic disorder without agoraphobia documented in this encounter [facility]* Diagnosis Primary hypertension (CMS/HCC)- Primary Unspecified essential hypertension Atrial fibrillation, persistent (HCC) (CMS/HCC) Atherosclerosis of aorta (CMS/HCC) Atherosclerosis of aorta Panic attack (CMS/HCC) Panic disorder without agoraphobia Acute cough- Primary 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, 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 Atrial fibrillation, persistent [...] cough- Primary Bruising Contusion of unspecified site longterm 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 Atrial fibrillation, persistent [...] agoraphobia Atrial fibrillation, persistent (HCC) (CMS/HCC)- Primary longterm 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 Primary hypertension (CMS/HCC) [...] agoraphobia Atrial fibrillation, persistent (HCC) (CMS/HCC)- Primary longterm 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 Mitral valve regurgitation [...] failure (HCC) documented [facility]* Diagnosis Primary hypertension- Primary Unspecified essential hypertension Atrial fibrillation, persistent (HCC) Atherosclerosis of aorta Panic attack Panic disorder without agoraphobia Anxiety Anxiety state, unspecified documented [facility]* Diagnosis Primary hypertension- Primary Unspecified essential hypertension Atrial fibrillation, persistent (HCC) Atherosclerosis of aorta Panic attack Panic disorder without agoraphobia Frequent urination- Primary Urinary frequency Painful urination Dysuria Mitral valve regurgitation due to cardiomyopathy (HCC) Exertional dyspnea Other dyspnea and respiratory abnormality Hypertensive heart disease with heart failure (HCC) Unspecified hypertensive heart disease with heart failure Atrial 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 difficile diarrhea Intestinal infection due to clostridium difficile Mitral valve regurgitation due to cardiomyopathy (HCC) Atrial fibrillation, persistent (HCC) longterm 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 documented [facility]* Diagnosis Primary hypertension- Primary Unspecified essential hypertension Atrial fibrillation, persistent (HCC) Atherosclerosis of aorta Panic attack Panic disorder without agoraphobia Bee sting, accidental or unintentional, initial encounter- Primary Gastroesophageal reflux disease without esophagitis Esophageal reflux Ear fullness, right Fluid level behind tympanic membrane of right ear documented [facility] this encounter [facility] Narrative No data available for this section [facility] Discharge instructions No data available for this section [facility] No data available for this section [facility] (n[facility]ative) , Mitral Valve and Tricuspid Valve Repair. Referred by: MARTINEZ MCMAHON, Johan Patino [facility] (narrative)* Outpatient Procedure (Routine) - Authorized Specialty Diagnoses / Procedures Referred By Marietta aguiar [facility]erred To [facility] Diagnoses Non-rheumatic mitral regurgitation Persistent atrial fibrillation (HCC) Non-ischemic cardiomyopathy (HCC) Chronic HFrEF (heart failure with reduced ejection fraction) (HCC) Procedures ECG COMPLETE ECG ROUTINE ECG W/LEAST 12 LDS W/I&R Ana Rivas APRN.CNP [address] [place] [address] [facility] [address] [address] [place] [id number] Referral ID Status Reason Start Date Expiration Date Visits Requested Visits Authorized [id number] Authorized Auto-Generat ed Referral 11/08/2023 09/25/2024 1 1 * Transition of Care (Routine) - Ref Not Required Specialty Diagnoses / Procedures Referred By Marietta aguiar Referred To Contact Diagnoses Non-rheumatic mitral regurgitation Persistent atrial fibrillation (HCC) Non-ischemic cardiomyopathy (HCC) Chronic HFrEF (heart failure with reduced ejection fraction) (HCC) Procedures CARDIOVASCULAR MEDICINE OP FOLLOW UP APPT ORDER Aan Rivas APRN.CNP [address] [place] [address] Referral ID Status Reason Start Date Expiration Date Visits Requested Visits Authorized [id number] Ref Not Required PCP Requested Referral 09/26/2023 09/25/2024 1 1 * Outpatient Procedure (Routine) - Authorized Specialty Diagnoses / Procedures Referred By Leeac t Referred To Contact [facility] [place] Diagnoses Non-rheumatic mitral regurgitation Persistent atrial fibrillation (HCC) Non-ischemic cardiomyopathy (HCC) Chronic HFrEF (heart failure with reduced ejection fraction) (HCC) Procedures ECG COMPLETE ECG ROUTINE ECG W/LEAST 12 LDS W/I&R Ana Rivas APRN.CNP [address] [place] [address] [address] Referral ID Status Reason Start Date Expiration Date Visits Requested Visits Authorized [id number] Authorized Auto-Generat ed Referral 10/25/2023 09/25/2024 1 1 * Transition of Care (Routine) - Ref Not Required Specialty Diagnoses / Procedures Referred By Contac t Referred To Contact Diagnoses Non-rheumatic mitral regurgitation Persistent atrial fibrillation (HCC) Non-ischemic cardiomyopathy (HCC) Chronic HFrEF (heart failure with reduced ejection fraction) (HCC) Procedures CARDIOVASCULAR MEDICINE OP FOLLOW UP APPT ORDER Ana Rivas APRN.CNP [address] [place] [address] Referral ID Status Reason Start Date Expiration Date Visits Requested Visits Authorized [id number] Ref Not Required PCP Requested Referral 09/26/2023 09/25/2024 1 1 * Outpatient Procedure (Routine) - Authorized Specialty Diagnoses / Procedures Referred By Contac t Referred To Contact [facility] [place] Diagnoses Non-rheumatic mitral regurgitation Persistent atrial fibrillation (HCC) Non-ischemic cardiomyopathy (HCC) Chronic HFrEF (heart failure with reduced ejection fraction) (HCC) Procedures ECG COMPLETE ECG ROUTINE ECG W/LEAST 12 LDS W/I&R Ana Rivas APRN.CLOTH PIECER [address] [place] [address] [address] Referral ID Status Reason Start Date Expiration Date Visits Requested Visits Authorized [id number] Authorized Auto-Generat ed Referral 10/10/2023 09/25/2024 1 1 * Transition of Care (Routine) - Ref Not Required Specialty Diagnoses / Procedures Referred By Contac t Referred To Contact Diagnoses Non-rheumatic mitral regurgitation Persistent atrial fibrillation (HCC) Non-ischemic cardiomyopathy (HCC) Chronic HFrEF (heart failure with reduced ejection fraction) (HCC) Procedures CARDIOVASCULAR MEDICINE OP FOLLOW UP APPT ORDER Ana Rivas APRN.CNP [address] [place] [address] Referral ID Status Reason Start Date Expiration Date Visits Requested Visits Authorized [id number] Ref Not Required PCP Requested Referral 09/26/2023 09/25/2024 1 1 [facility] for referral (narrative)* Consultation (Routine) - Pending Review Specialty Diagnoses / Procedures Referred By Contac t Referred To Contact Cardiothoracic Surgery Diagnoses Mitral valve insufficiency, unspecified etiology Procedures [place] OFFICE/OUTPATIENT NEW HIGH MDM 60 MINUTES [place] [address] Referral ID Status Reason Start Date Expiration Date Visits Requested Visits Authorized [id number] Pending Review Specialty Services Required 09/18/2023 03/16/2024 [...] FoundNo Family History Records Found Advance Directives Latest Code Status on File Code Status [...] section and content) DATE CREATED AUTHOR 08/23/2021 [facility] dical Specialist DATE CREATED AUTHOR AUTHOR'S ORGANIZ ATION 06/05/2024 [facility] DATE CREATED AUTHOR AUTHOR'S ORGANIZ ATION 06/29/2024 [facility] DATE CREATED AUTHOR AUTHOR'S ORGANIZ ATION 11/22/2024 [facility] DATE CREATED AUTHOR AUTHOR'S ORGANIZ ATION 04/21/2025 [facility] DATE CREATED AUTHOR AUTHOR'S ORGANIZ ATION 04/25/2025 [facility] DATE CREATED AUTHOR AUTHOR'S ORGANIZ ATION 04/26/2025 [facility] DATE CREATED AUTHOR AUTHOR'S ORGANIZ ATION 04/29/2025 [facility] DATE CREATED AUTHOR AUTHOR'S ORGANIZ ATION 05/02/2025 [facility] DATE CREATED AUTHOR AUTHOR'S ORGANIZ ATION 05/03/2025 [facility] DATE CREATED AUTHOR AUTHOR'S ORGANIZ ATION 05/04/2025 [facility] DATE CREATED AUTHOR AUTHOR'S ORGANIZ ATION 05/15/2025 [facility] dical Specialists EPIC Care Team (unrecognized sect ion and content) Calenderer Relationship Specialty Start Date End Date Peggy Nazario [address] [place] [place] [address] PCP - General Family Medicine 07/24/23 Micheline Sorto MD [address] [place] [address] Surgeon Cardiac Surg 07/24/23 Johan Henriquez MD [address] [place], [place] [address] [place] [address] Perioperative Manager Cardiology 07/24/23 Calenderer Relationship Specialty Start Date End Date Peggy Nazario MD [address] [place] [address] PCP - ACO Reach 01/05/23 Peggy Nazario MD [address] [place] [address] PCP - General Family Medicine 02/08/23 Calenderer Relationship Specialty Start Date End Date Peggy Nazario MD [address] [place] [address] PCP - ACO Reach 01/05/23 Peggy Nazario MD [address] [place] [address] PCP - General Family Medicine 02/08/23 Calenderer Relationship Specialty Start Date End Date Peggy Nazario [address] [place] [place] [address] PCP - General Family Medicine 07/24/23 Micheline Sorto MD [address] [place] [address] Surgeon Cardiac Surg 07/24/23 Johan Henriquez MD [address] [place] [address] Perioperative Manager Cardiology 07/24/23 Alea Harley MD [address] [place] [address] Cardiology 07/28/23 Alea Harley MD [address] [place] [address] Primary Staff Physician Cardiology 08/23/23 Calenderer Relationship Specialty Start Date End Date Peggy Nazario [address] [place] [address] PCP - General Family Medicine 07/24/23 Micheline Sorto MD [address] [place] [address] Surgeon Cardiac Surg 07/24/23 Johan Henriquez MD [address] [place] [address] Perioperative Manager Cardiology 07/24/23 Alea Harley MD [address] [place] [address] Cardiology 07/28/23 Alea Harley MD [address] [place] [address] Primary Staff Physician Cardiology 08/23/23 Calenderer Relationship Specialty Start Date End Date Peggy Nazario [address] [place] [place] [address] PCP - General Family Medicine 07/24/23 Micheline Sorto MD [address] [place] [address] Surgeon Cardiac Surg 07/24/23 Johan Henriquez MD [address] [place] [address] Perioperative Manager Cardiology 07/24/23 Alea Harley MD [address], [place] [id number] Cardiology 07/28/23 Alea Harley MD [address] [place] [address] Primary Staff Physician Cardiology 08/23/23 Calenderer Relationship Specialty Start Date End Date Peggy Nazario MD [address] [place] [address] PCP - ACO Reach 01/05/23 Peggy Nazario MD [address] [place] [address] PCP - General Family Medicine 02/08/23 Calenderer Relationship Specialty Start Date End Date Peggy Nazario [address] [place] [address] PCP - General Family Medicine 07/24/23 Micheline Sorto MD [address] [place] [address] Surgeon Cardiac Surg 07/24/23 Johan Henriquez MD [address] [place] [address] Perioperative Manager Cardiology 07/24/23 Alea Harley MD [address] [place] [address] Cardiology 07/28/23 Alea Harley MD [address] [place] [address] Primary Staff Physician Cardiology 08/23/23 Calenderer Relationship Specialty Start Date End Date Peggy Nazario MD [address] [place] [address] PCP - ACO Reach 01/05/23 Peggy Nazario MD [address] [place] [address] PCP - General Family Medicine 02/08/23 Calenderer Relationship Specialty Start Date End Date Peggy Nazario [address] [place] [address] PCP - General Family Medicine 07/24/23 Micheline Sorto MD [address] [place] [id number] Surgeon Cardiac Surg 07/24/23 Johan Henriquez MD [facility] [address] [place] [address] Perioperative Manager Cardiology 07/24/23 Alea Harley MD [address] [place] [address] Cardiology 07/28/23 Alea Harley MD [address] [place] [address] Primary Staff Physician Cardiology 08/23/23 Calenderer Relationship Specialty Start Date End Date Peggy Nazario [address] [place] [address] PCP - General Family Medicine 07/24/23 Micheline Sorto MD [address] [place] [address] Surgeon Cardiac Surg 07/24/23 Johan Henriquez MD [address] [place] [address] Perioperative Manager Cardiology 07/24/23 Alea Harley MD [address] [place] [address] Cardiology 07/28/23 Alea Harley MD [address] [place] [address] Primary Staff Physician Cardiology 08/23/23 Calenderer Relationship Specialty Start Date End Date Peggy Nazario [address] [place] [address] PCP - General Family Medicine 07/24/23 Micheline Sorto MD [address] [place] [address] Surgeon Cardiac Surg 07/24/23 Johan Henriquez MD [address] [place] [address] Perioperative Manager Cardiology 07/24/23 Alea Harley MD [address] [place] [address] Cardiology 07/28/23 Alea Harley MD [address] [place] [address] Primary Staff Physician Cardiology 08/23/23 Calenderer Relationship Specialty Start Date End Date Peggy Nazario [address] [place] [address] PCP - General Family Medicine 07/24/23 Micheline Sorto MD [address] [place] [address] Surgeon Cardiac Surg 07/24/23 Johan Henriquez MD [facility] [address] [place] [address] Perioperative Manager Cardiology 07/24/23 Alea Harley MD [address] [place] [address] Cardiology 07/28/23 Alea Harley MD [address] [place] [address] Primary Staff Physician Cardiology 08/23/23 Calenderer Relationship Specialty Start Date End Date Peggy Nazario [address] [place] [address] PCP - General Family Medicine 07/24/23 Micheline Sorto MD [address] [place] [address] Surgeon Cardiac Surg 07/24/23 Johan Henriquez MD [address] [place] [address] Perioperative Manager Cardiology 07/24/23 Alea Harley MD [address] [place] [address] Cardiology 07/28/23 Alea Harley MD [address] [place] [address] Primary Staff Physician Cardiology 08/23/23 Calenderer Relationship Specialty Start Date End Date Peggy Nazario [address] [place] [address] PCP - General Family Medicine 07/24/23 Micheline Sorto MD [address] [place] [address] Surgeon Cardiac Surg 07/24/23 Johan Henriquez MD [address] [place] [address] Perioperative Manager Cardiology 07/24/23 Alea Harley MD [address] [place] [address] Cardiology 07/28/23 Alea Harley MD [address] [place] [address] Primary Staff Physician Cardiology 08/23/23 Calenderer Relationship Specialty Start Date End Date Peggy Nazario [address] [place] [address] PCP - General Family Medicine 07/24/23 Micheline Sorto MD [address] [place] [address] Surgeon Cardiac Surg 07/24/23 Johan Henriquez MD [address] [place] [address] Perioperative Manager Cardiology 07/24/23 Alea Harley MD [address] [place] [address] Cardiology 07/28/23 Alea Harley MD [address] [place] [address] Primary Staff Physician Cardiology 08/23/23 Calenderer Relationship Specialty Start Date End Date Peggy Nazario [address] [place] [address] PCP - General Family Medicine 07/24/23 Micheline Sorto MD [address] [place] [address] Surgeon Cardiac Surg 07/24/23 Johan Henriquez MD [address] [place] [address] Perioperative Manager Cardiology 07/24/23 Alea Harley MD [address] [place] [address] Cardiology 07/28/23 Alea Harley MD [address] [place], [place] [id number] Primary Staff Physician Cardiology 08/23/23 Calenderer Relationship Specialty Start Date End Date Peggy Nazario MD [address] [place] [address] PCP - ACO Reach 01/05/23 Hannah Brian MD [address] [place] [address] PCP - General Family Medicine 11/03/23 Calenderer Relationship Specialty Start Date End Date Peggy Nazario MD [address] [place] [address] PCP - ACO Reach 01/05/23 Hannah Brian MD [address] [place] [address] PCP - General Family Medicine 11/03/23 Calenderer Relationship Specialty Start Date End Date Peggy Nazario MD [address] [place] [address] PCP - ACO Reach 01/05/23 Hannah Brian MD [address] [place] [address] PCP - General Family Medicine 11/03/23 Calenderer Relationship Specialty Start Date End Date Peggy Nazario MD [address] [place] [address] PCP - ACO Reach 01/05/23 Hannah Brian MD [address] [place] [address] PCP - General Family Medicine 11/03/23 Calenderer Relationship Specialty Start Date End Date Peggy Nazario MD [address] [place] [address] PCP - ACO Reach 01/05/23 Hannah Brian MD [address] [place] [address] PCP - General Family Medicine 11/03/23 Calenderer Relationship Specialty Start Date End Date Peggy Nazario MD [address] [place] [address] PCP - ACO Reach 01/05/23 Hannah Brian MD [address] [place] [address] PCP - General Family Medicine 11/03/23 Calenderer Relationship Specialty Start Date End Date Peggy Nazario MD [address] [place] [address] PCP - ACO Reach 01/05/23 Hannah Brian MD [address] [place] [address] PCP - General Family Medicine 11/03/23 Calenderer Relationship Specialty Start Date End Date Peggy Nazario MD [address] [place] [address] PCP - ACO Reach 01/05/23 Peggy Nazario MD [address] [place] [address] PCP - General Family Medicine 02/08/23 11/02/23 Calenderer Relationship Specialty Start Date End Date Peggy Nazario MD [address] [place] [address] PCP - ACO Reach 01/05/23 Hannah Brian MD [address] [place] [address] PCP - General Family Medicine 11/03/23 Calenderer Relationship Specialty Start Date End Date Peggy Nazario MD [address] [place] [address] PCP - ACO Reach 01/05/23 Hannah Brian MD [address] [place] [address] PCP - General Family Medicine 11/03/23 Calenderer Relationship Specialty Start Date End Date Peggy Nazario MD [address] [place] [address] PCP - ACO Reach 01/05/23 Hannah Brian MD [address] [place] [address] PCP - General Family Medicine 11/03/23 Calenderer Relationship Specialty Start Date End Date Peggy Nazario MD [address] [place] [address] PCP - ACO Reach 01/05/23 Hannah Brian MD [address] [place] [address] PCP - General Family Medicine 11/03/23 Calenderer Relationship Specialty Start Date End Date Peggy Nazario MD [address] [place] [address] PCP - ACO Reach 01/05/23 Hannah Brian MD [address] [place] [address] PCP - General Family Medicine 11/03/23 Calenderer Relationship Specialty Start Date End Date Peggy Nazario MD [address] [place] [address] PCP - ACO Reach 01/05/23 Hannah Brian MD [address] [place] [address] PCP - General Family Medicine 11/03/23 Calenderer Relationship Specialty Start Date End Date Peggy Nazario MD [address] [place] [address] PCP - ACO Reach 01/05/23 Hannah Brian MD [address] [place] [address] PCP - General Family Medicine 11/03/23 Calenderer Relationship Specialty Start Date End Date Peggy Nazario MD [address] [place] [address] PCP - ACO Reach 01/05/23 Hannah Brian MD [address] [place] [address] PCP - General Family Medicine 11/03/23 Calenderer Relationship Specialty Start Date End Date Peggy Nazario MD [address] [place] [address] PCP - ACO Reach 01/05/23 Hannah Brian MD [address] [place] [address] PCP - General Family Medicine 11/03/23 Calenderer Relationship Specialty Start Date End Date Peggy Nazario MD [address] [place] [address] PCP - ACO Reach 01/05/23 Hannah Brian MD [address] [place] [address] PCP - General Family Medicine 11/03/23 Calenderer Relationship Specialty Start Date End Date Peggy Nazario MD [address] [place] [address] PCP - ACO Reach 01/05/23 Hannah Brian MD [address] [place] [address] PCP - General Family Medicine 11/03/23 Calenderer Relationship Specialty Start Date End Date Peggy Nazario MD [address] [place] [address] PCP - ACO Reach 01/05/23 Hannah Brian MD [address] [place] [address] PCP - General Family Medicine 11/03/23 Calenderer Relationship Specialty Start Date End Date Peggy Nazario MD [address] [place] [address] PCP - ACO Reach 01/05/23 Hannah Brian MD [address] [place] [address] PCP - General Family Medicine 11/03/23 Source Comments (unrecognize d section and content) In the event this informatio n is protected by the Federal Confidentiality of Alcohol and Drug Abuse Patient Records regulations: The Federal rules restrict any use of the information to criminally investigate or prosecute any alcohol or drug abuse patient.[facility] the event this information is protected by the Federal Confidentiality of Alcohol and Drug Abuse Patient Records regulations: The Federal rules restrict any use of the information to criminally investigate or prosecute any alcohol or drug abuse patient.[facility] the event this information is protected by the Federal Confidentiality of Alcohol and Drug Abuse Patient Records regulations: The Federal rules restrict any use of the information to criminally investigate or prosecute any alcohol or drug abuse patient.[facility] the event this information is protected by the Federal Confidentiality of Alcohol and Drug Abuse Patient Records regulations: The Federal rules restrict any use of the information to criminally investigate or prosecute any alcohol or drug abuse patient.[facility] the event this information is protected by the Federal Confidentiality of Alcohol and Drug Abuse Patient Records regulations: The Federal rules restrict any use of the information to criminally investigate or prosecute any alcohol or drug abuse patient.[facility] the event this information is protected by the Federal Confidentiality of Alcohol and Drug Abuse Patient Records regulations: The Federal rules restrict any use of the information to criminally investigate or prosecute any alcohol or drug abuse patient.[facility] the event this information is protected by the Federal Confidentiality of Alcohol and Drug Abuse Patient Records regulations: The Federal rules restrict any use of the information to criminally investigate or prosecute any alcohol or drug abuse patient.[facility] the event this information is protected by the Federal Confidentiality of Alcohol and Drug Abuse Patient Records regulations: The Federal rules restrict any use of the information to criminally investigate or prosecute any alcohol or drug abuse patient.[facility] the event this information is protected by the Federal Confidentiality of Alcohol and Drug Abuse Patient Records regulations: The Federal rules restrict any use of the information to criminally investigate or prosecute any alcohol or drug abuse patient.[facility] the event this information is protected by the Federal Confidentiality of Alcohol and Drug Abuse Patient Records regulations: The Federal rules restrict any use of the information to criminally investigate or prosecute any alcohol or drug abuse patient.[facility] the event this information is protected by the Federal Confidentiality of Alcohol and Drug Abuse Patient Records regulations: The Federal rules restrict any use of the information to criminally investigate or prosecute any alcohol or drug abuse patient.[facility] the event this information is protected by the Federal Confidentiality of Alcohol and Drug Abuse Patient Records regulations: The Federal rules restrict any use of the information to criminally investigate or prosecute any alcohol or drug abuse patient.[facility] the event this information is protected by the Federal Confidentiality of Alcohol and Drug Abuse Patient Records regulations: The Federal rules restrict any use of the information to criminally investigate or prosecute any alcohol or drug abuse patient.[facility] the event this information is protected by the Federal Confidentiality of Alcohol and Drug Abuse Patient Records regulations: The Federal rules restrict any use of the information to criminally investigate or prosecute any alcohol or drug abuse patient.[facility] the event this information is protected by the Federal Confidentiality of Alcohol and Drug Abuse Patient Records regulations: The Federal rules restrict any use of the information to criminally investigate or prosecute any alcohol or drug abuse patient.[facility] Reason for Visit (unrecogniz ed [...] cardiomyopathy (HCC) Decompensated heart failure (HCC) Procedures [address] [place] [address] IP/OBS CARE [facility] 75 MINUTES MEDICATION MANAGEMENT CONSULTS [facility] [id number] [place] [address] Referral ID Status Reason Start Date Expiration Date Visits Re quested Visits Authorized [id number] 1 1 Reason Comments Refill Request Reason Comments Follow Up Reason Comments Cystoscopy-1 Patient Education Reason Comments Gynecologic Exam Medicare off year.LM P: MIR SHEFFIELD 1985HRT: NoneLast pap 07-24-23 neg.[place] [facility] 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 [facility] [employer] [facility]. provides no warranty or guarantee of the accuracy or completeness of information in this document.
[2025-05-19 12:07] LABS: Hematocrit 42.2 % (36.0-48.0); Hemoglobin 13.5 g/dL (12.0-16.0); Immature Granulocytes Abs Auto 0.02 10^3/uL (0.00-0.03); Immature Granulocytes Pct Auto 0.2 % (0.0-0.5); Lymphocytes Absolute Auto 1.5 10^3/uL (1.2-3.8); Mean Corpuscular HGB Conc 32.0 g/dL (29.9-35.2); Mean Corpuscular Hemoglobin 29.5 pg (26.7-34.0); Mean Corpuscular Volume 92.1 fL (81.0-99.0); Platelet Count 219 10^3/uL (150-450); Red Blood Count 4.58 10^6/uL (4.20-5.40); White Blood Count 8.5 10^3/uL (4.0-11.0)
[2025-05-19 12:29] LABS: Anion Gap 9.8; Blood Urea Nitrogen 10.0 mg/dL (7.0-18.0); Calcium 9.4 mg/dL (8.5-10.1); Carbon Dioxide 29.4 mmol/L (21.0-32.0); Chloride 103 mmol/L (98-107); Estimated GFR (African America >60 (>=60 mL/min/1.73m^2); Estimated GFR (Non-African Ame 54 (>=60 mL/min/1.73m^2); Glucose 84 mg/dL (74-106); Potassium 4.2 mmol/L (3.5-5.1); Sodium 138 mmol/L (136-145)
== END 2025-05-19 11:43 | disposition home or self-care (01) ==
LOC: LAB 11:45
PROVIDERS: PCP Student in an Organized Health Care Education/Training Program; Visit Provider Internal Medicine Interventional Cardiology
DX: I36.1 Nonrheumatic tricuspid (valve) insufficiency (principal)
CPT/HCPCS: 36415; 80048; 85025

== ENCOUNTER 2025-06-02 10:46 | Emergency (ER) | payer MEDICARE, BC, SELFPAY ==
[2025-06-02] VITALS (14 sets, daily range): BP systolic 126–132; BP diastolic 61–77; PULSE 70–75; TEMP 37.5; O2SAT 96–100; BMI 21.6
--- NOTE | 2025-06-02 11:20 | ECG_ITS ---
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
--- NOTE | 2025-06-02 11:22 | ED.GENADUL1 ---
HPI HPI - General Adult General Chief complaint: Weakness Stated complaint: POST OP-05/27/2025 FEVER, WEAKNESS Time Seen by Provider: 06/02/25 11:01 Source: patient Mode of arrival: Wheelchair Limitations: no limitations History of Present Illness HPI narrative: Patient is a 75-year-old female that presents with complaints of weakness, night sweats, and has felt feverish since yesterday. She did not take her temperature at home. She she had a transcatheter [id number] repair (ANA) on her tricuspid valve on 05/27/[address] Robins from [facility]. She has also been having urinary frequency and dysuria that has been progressing since the surgery. She did have a mitral valve ANA this summer and got a UTI after that surgery. She also does have a pacemaker and sees Dr. Peguero. She also thinks she is constipated as she cannot fully evacuate her bowels, but did have a bowel movement yesterday. She denies any chest or abdominal pain, or shortness of breath. Related Data Home Medications ?Medication ?Instructions ?Recorded ?Confirmed atorvastatin 40 mg tablet 40 mg PO .once daily 10/15/23 06/02/25 lorazepam 0.5 mg tablet 0.5 mg PO TID PRN anxiety 10/15/23 06/02/25 spironolactone 25 mg tablet 12.5 mg PO .once daily 10/15/23 06/02/25 apixaban 5 mg tablet (Eliquis) 5 mg PO BID 06/01/24 06/02/25 carvedilol 6.25 mg tablet 6.25 mg PO BID 01/19/25 06/02/25 famotidine 20 mg tablet mg 06/02/25 Previous Rx's ?Medication ?Instructions ?Recorded dicyclomine 20 mg tablet 20 mg PO BID PRN abdominal pain 04/10/25 #14 tabs Allergies Allergy/AdvReac Type Severity Reaction Status Date / Time meperidine (From Demerol) Allergy Intermediate Agitated Verified 06/02/25 10:58 Review of Systems ROS Status of ROS 10 or more systems reviewed and unremarkable except as noted in history and below PFSH PFSH Social History Smoking status: Former smoker Little interest or pleasure in doing things: not at all Feeling down, depressed, or hopeless: not at all Exam Narrative Exam Narrative: General: No distress, age-appropriate Skin: Warm, dry, no pallor. No rash. Head: Normocephalic, atraumatic. Neck: Supple, non-tender. Eye: Pupils are equal, round and EOMI. No scleral icterus. Ears, Nose, Mouth, and Throat: No nasal mucosal hypertrophy. Oral mucosa is moist, no posterior oropharynx erythema, uvula is mid-line Cardiovascular: Regular Rate and Rhythm without murmur, gallop or rub. Respiratory: No accessory muscle use or respiratory distress. Lungs are clear to auscultation, no wheezing, rales or rhonchi Chest Wall: no tenderness Back: No midline thoracic or lumbar vertebral tenderness. Musculoskeletal: Full ROM of all extremities, no calf or popliteal tenderness. Right groin ecchymosis and small surgical incisions. No drainage present. No surrounding erythema or increased swelling. GI: Abdomen is soft, non-distended, non tender to palpation. No masses appreciated. No rebound, guarding, or rigidity noted. Neurological: A&O x4. No cranial nerve dysfunction observed. No truncal ataxia. Moves all extremities. Sensation intact. Psychiatric: Cooperative and interactive. Normal mood and affect. Constitutional Vital Signs, click to edit/add: Last Vital Signs Temp 99.5 F 06/02/25 11:08 Pulse 70 06/02/25 13:41 Resp 16 06/02/25 13:41 BP 130/77 06/02/25 12:21 Pulse Ox 99 06/02/25 13:41 O2 Del Method Room Air 06/02/25 10:50 Course Vital Signs Vital signs: Vital Signs Pulse Rate 70 06/02/25 10:50 Respiratory Rate 18 06/02/25 10:50 Blood Pressure 132/64 06/02/25 10:50 Pulse Oximetry 99 06/02/25 10:50 Oxygen Delivery Method Room Air 06/02/25 10:50 Temperature 99.5 F 06/02/25 11:08 Pulse Rate 70 06/02/25 13:41 Respiratory Rate 16 06/02/25 13:41 Blood Pressure 130/77 06/02/25 12:21 Pulse Oximetry 99 06/02/25 13:41 Oxygen Delivery Method Room Air 06/02/25 10:50 Medical Decision Making MDM Narrative Medical decision making narrative: This is a 75-year-old female that presented with complaints of weakness, night sweats, and has felt feverish since yesterday. She she had a transcatheter [id number]-[id number] repair (ANA) on her tricuspid valve on 05/27/[address] Robins from [facility]. She has also been having urinary frequency and dysuria that has been progressing since the surgery. She did have a mitral valve ANA this summer and got a UTI after that surgery. She also does have a pacemaker and sees Dr. Peguero. She also thinks she is constipated as she cannot fully evacuate her bowels, but did have a bowel movement yesterday. She denied any chest or abdominal pain, or shortness of breath. She is on Eliquis. On arrival patient is in no distress, speaks in full sentences, no SOB on exam, vital signs are hemodynamically stable, patient is afebrile at 99.5. She is satting 99% O2 on room air. CBC, CMP, troponin, UA, EKG, Chest x-ray, influenza A/B, and COVID-19 ordered. Patient request something for nausea. Zofran 4 mg ODT ordered. EKG on arrival reviewed and is in a paced rhythm, 72 BPM Labs CBC: No leukocytosis, WBC 9.4 CMP: Within normal limit Trop: 10.5 PG/mL, within normal limit UA: Neg for infection Influenza A/B, COVID-19: Negative Chest x-ray: Negative for acute cardio pulmonology pathology. I did speak with Dr. Ferrell with [facility] Cardiology and he is okay with discharge and close follow-up with them in the office given her negative workup. Patient updated with lab and imaging results. I did discuss plan for discharge home. She did request her lorazepam 0.5 mg dose that she takes at 2 PM. We did prescribe her that to take when she gets home. She also requested a suppository to help her fully evacuate her bowels and I did order that as well. Patient was observed ambulating to the bathroom with steady nonantalgic gait. Patient was discharged in stable condition to home with plan for close follow-up with [facility] cardiology. Differential Diagnosis Differential Diagnosis: UTI, viral illness, nonspecific infection Lab Data Lab results reviewed: Yes I reviewed the patient's lab results Labs: Lab Results 06/02/25 06/02/25 06/02/25 Range/Units 11:12 11:38 13:02 WBC 9.4 (4.0-11.0) 10^3/uL RBC 4.68 (4.20-5.40) 10^6/uL Hgb 13.9 (12.0-16.0) g/dL Hct 43.0 (36.0-48.0) % MCV 91.9 (81.0-99.0) fL MCH 29.7 (26.7-34.0) pg MCHC 32.3 (29.9-35.2) g/dL RDW 13.8 (11.0-15.0) % Plt Count 215 (150-450) 10^3/uL MPV 10.4 (9.5-13.5) fL Neut % (Auto) 81.6 H (43.0-75.0) % Lymph % (Auto) 11.3 L (20.5-60.0) % [place] % (Auto) 6.0 (1.7-12.0) % Eos % (Auto) 0.5 L (0.9-7.0) % Baso % (Auto) 0.3 (0.2-2.0) % Neut # (Auto) 7.7 H (1.4-6.5) 10^3/uL Lymph # (Auto) 1.1 L (1.2-3.8) 10^3/uL [place] # (Auto) 0.6 (0.3-0.8) 10^3/uL Eos # (Auto) 0.1 (0.0-0.7) 10^3/uL Baso # (Auto) 0.0 (0.0-0.1) 10^3/uL Abs Immat Gran (auto) 0.03 (0.00-0.03) 10^3/uL Imm/Tot Granulo (auto) 0.3 (0.0-0.5) % Sodium 137 (136-145) mmol/L Potassium 4.1 (3.5-5.1) mmol/L Chloride 101 (98-107) mmol/L Carbon Dioxide 26.9 (21.0-32.0) mmol/L Anion Gap 13.2 BUN 13.0 (7.0-18.0) mg/dL Creatinine 0.92 (0.55-1.02) mg/dL Est GFR ( Amer) >60 (>=60 mL/min/1.73m^2) Est GFR (Non-Af Amer) 59 L (>=60 mL/min/1.73m^2) BUN/Creatinine Ratio 14.1 Glucose 145 H (74-106) mg/dL Calcium 9.2 (8.5-10.1) mg/dL Total Bilirubin 0.9 (0.2-1.0) mg/dL AST 24 (15-37) U/L ALT 29 (14-59) U/L Alkaline Phosphatase 75 (46-116) U/L Troponin I High Sens 10.5 (4.0-51.3) pg/mL Total Protein 7.1 (6.4-8.2) g/dL Albumin 3.5 (3.4-5.0) g/dL Globulin 3.6 g/dL Albumin/Globulin Ratio 1.0 Urine Color Lt. yellow (YELLOW) Urine Clarity Clear (CLEAR) Urine pH 7.0 (5.0-9.0) Ur Specific [place] <=1.005 A (1.005-1.025) Urine Protein Negative (NEG/TRACE) mg/dL Urine Glucose (UA) Negative (NEGATIVE) mg/dL Urine Ketones Negative (NEGATIVE) mg/dL Urine Occult Blood Negative (NEGATIVE) Urine Nitrite Negative (NEGATIVE) Urine Bilirubin Negative (NEGATIVE) Urine Urobilinogen 0.2 (0.2-1.0) EU/dL Ur Leukocyte Esterase Negative (NEGATIVE) Influenza Type A Ag Negative Influenza Type B Ag Negative SARS-CoV-2 Ag (CV2AG) Negative (NEGATIVE) Imaging Data Chest x-ray: Attestation: I have reviewed the pertinent imaging results. Radiologist's impression: ITS Impressions Chest X-Ray 06/02/25 11:49 IMPRESSION: No acute cardiopulmonary pathology. Impression dictated by: Cyrus Tran M.D. 06/02/2025 12:38 PM Dictation Location: [place] [address] Electronically authenticated by: [id number] Y Date: 06/02/2025 12:38 ECG Data Attestation: ?I have reviewed the pertinent ECG results. Discharge Plan Discharge Chief Complaint: Weakness Clinical Impression: Acute viral syndrome Patient Disposition: Home, Self-Care Time of Disposition Decision: 13:45 Prescriptions / Home Meds: No Action Eliquis 5 mg tablet 5 mg PO BID carvedilol 6.25 mg tablet 6.25 mg PO BID dicyclomine 20 mg tablet 20 mg PO BID PRN (Reason: abdominal pain) Qty: 14 0RF atorvastatin 40 mg tablet 40 mg PO .once daily spironolactone 25 mg tablet 12.5 mg PO .once daily lorazepam 0.5 mg tablet 0.5 mg PO TID PRN (Reason: anxiety) famotidine 20 mg tablet Print Language: Yemeni Instructions: Viral Syndrome (ED) Referrals: TANESHA HOOVER [Primary Care Provider] - 1 week Discharge Date/Time: 06/02/25 14:16
[2025-06-02 11:25] LABS: Hematocrit 43.0 % (36.0-48.0); Hemoglobin 13.9 g/dL (12.0-16.0); Immature Granulocytes Abs Auto 0.03 10^3/uL (0.00-0.03); Immature Granulocytes Pct Auto 0.3 % (0.0-0.5); Lymphocytes Absolute Auto 1.1 10^3/uL (1.2-3.8); Mean Corpuscular HGB Conc 32.3 g/dL (29.9-35.2); Mean Corpuscular Hemoglobin 29.7 pg (26.7-34.0); Mean Corpuscular Volume 91.9 fL (81.0-99.0); Platelet Count 215 10^3/uL (150-450); Red Blood Count 4.68 10^6/uL (4.20-5.40); White Blood Count 9.4 10^3/uL (4.0-11.0)
[2025-06-02 11:41] LABS: Alanine Aminotransferase 29 U/L (14-59); Albumin Globulin Ratio 1.0; Albumin Level 3.5 g/dL (3.4-5.0); Alkaline Phosphatase 75 U/L (46-116); Anion Gap 13.2; Aspartate Amino Transferase 24 U/L (15-37); Blood Urea Nitrogen 13.0 mg/dL (7.0-18.0); Calcium 9.2 mg/dL (8.5-10.1); Carbon Dioxide 26.9 mmol/L (21.0-32.0); Chloride 101 mmol/L (98-107); Estimated GFR (African America >60 (>=60 mL/min/1.73m^2); Estimated GFR (Non-African Ame 59 (>=60 mL/min/1.73m^2); Globulin 3.6 g/dL; Glucose 145 mg/dL (74-106); Potassium 4.1 mmol/L (3.5-5.1); Sodium 137 mmol/L (136-145); Total Protein 7.1 g/dL (6.4-8.2)
[2025-06-02] MEDS: ONDANSETRON 4 MG RAPDIS TABLET SL (11:49)
--- NOTE | 2025-06-02 11:49 | XR_ITS ---
[place] [id number] Patient Name: HARJIT ULLOA MRN: [id number] date: 1950 Sex: F Assigned Patient Location: ER Current Patient Location: ED.MAIN Accession/Order Number: [id number] Exam Date: 06/02/2025 12:10 Report Date: 06/02/2025 12:38 At the request of: CRYSTAL MEJIAS Procedure: XR chest 1V XR chest 1V 06/02/2025 12:23 PM SIGNS AND SYMPTOMS: ^weakness ^Y PROTOCOL: Frontal radiograph of the chest COMPARISON: 01/30/2025 FINDINGS: The trachea is midline. There is a dual lead pacer device on the left. The heart and mediastinal structures are within normal limits. The lung parenchyma is clear. The bony thorax is intact. XR/XR chest 1V IMPRESSION: No acute cardiopulmonary pathology. Impression dictated by: Cyrus Tran M.D. 06/02/2025 12:38 PM Dictation Location: [place] [address] Electronically authenticated by: [id number] Y Date: 06/02/2025 12:38
[2025-06-02 11:52] LABS: Glucose Urine UA NEGATIVE (NEGATIVE)
--- OUTSIDE RECORDS SUMMARY | 2025-06-02 12:05 | XMS_ITS | CCD ---
Author Organization [facility] Care Team Providers Care Wax Pattern Coater Name Role Phone Peggy Nazario Primary Care Physician [phone] Micheline Sorto MD Unavailable Johan Henriquez MD Unavailable Peggy Nazario Primary Care Provider Peggy Nazario MD Unavailable Peggy Nazario MD Primary Care Provider [phone] Alea Harley MD Unavailable [phone] Alea Harley MD Unavailable [phone] Hannah Brian Primary Care Physician [phone] Peggy Nazario Primary Care Provider Johan HENRIQUEZ [...] Unava ilable Eb [employer] Consult[employer] Unavaila ble [facility] Cardio, XXXX Consulting Unavailable Koby Masterson Attending Unavailable Micheline BROOKS Attending Unavailable Micheline BROOKS Referring Unavailable Micheline BROOKS Attending Unavailable Jeff Cross Attending Unavailable DO Parveen Ayers SElise Attending Unavailable DO Parveen Ayers S. Attending Unavailable Koby Masterson Attending Unavailable Jayson Calloway Attending Unavailable NONE, XXXX Referring Unavailable Johan HENRIQUEZ Admitting Unavailable Johan HENRIQUEZ Attending Unavailable AMINA PETERSEN Admitting Unavailable DAWSON PANIAGUA Attending Unavailable ALEA HARLEY Referring Unavailable NAZARIO, [facility] Primary Care Unavailabl e VASAVADA, RAPHAEL P Referring Unavailable VASAVADA, RAPHAEL P Attending Unavailable NAZARIO, PEGGY JAYDE Primary Care Unavailabl e NAZARIO, [facility] Primary Care Unavailabl e HAMMALEA GAITAN F Referring Unavailable NAZARIO, [facility] Primary Care Unavailabl e NITHYA, MICHELINE Referring Unavailable NAZARIO, [facility] Primary Care Unavailabl e VASAVADA, RAPHAEL P Attending Unavailable SELF Referring Unavailable ALEA HARLEY Referring Unavailable NAZARIO, [facility] Primary Care Unavailabl e ANA RIVAS Attending Unavailable NAZARIO, [facility] Primary Care Unavailabl e NAZARIO, [facility] Primary Care Unavailabl e NITHYA, MICHELINE Attending Unavailable NITHYA, MICHELINE Referring Unavailable YECENIA GLEZ Admitting Unavailable NAZARIO, [facility] Primary Care Unavailabl e YECENIA GLEZ Attending Unavailable NAZARIO, [facility] Primary Care Unavailabl e NITHYA, MICHELINE Referring Unavailable NITHYA, MICHELINE Referring Unavailable NAZARIO, [facility] Primary Care Unavailabl e NITHYA, MICHELINE Referring Unavailable PRIETO VILLALBA Attending Unavailable NAZARIO, [facility] Primary Care Unavailabl e NITHYA, MICHELINE Referring Unavailable NAZARIO, PEGGY JAYDE Primary Care Unavailabl e NAZARIO, [facility] Primary Care Unavailabl e VASAVADA, RAPHAEL P Referring Unavailable VASAVADA, RAPHAEL P Attending Unavailable NITHYA, MICHELINE Referring Unavailable ALEA HARLEY Attending Unavailable NAZARIO, [facility] Primary Care Unavailabl e NAZARIO, [facility] Primary Care Unavailabl e VASAVADA, RAPHAEL P Attending Unavailable SELF Referring Unavailable Snehal MCMAHON, Hannah De Leon Primary Care Provider Peggy Nazario MD Primary Care Provider Hannah Brian MD Primary Care Provider PATTY YAO Attending Unavailable PATTY YAO Admitting Unavailable Jayson Calloway Attending Unavailable Brodie, Jayson M. Attending Unavailable Jayson Calloway. Admitting Unavailable Jayson Calloway. Attending Unavailable Jayson Calloway. Admitting Unavailable Jayson Calloway. Attending Unavailable HajdLayton farris Attending Unavailable FÁTIMASHERLYN CAMPOS Attending Unavailable SNEHAL, HANNAH De Leon Attending Unavailable SNEHAL, HANNAH M Attending Unavailable SNEHAL, HANNAH M Attending Unavailable SNEHAL, HANNAH M Attending Unavailable SNEHAL, HANNAH M Attending Unavailable FÁTIMASHERLYN CAMPOS Attending Unavailable STEPHAN BOO Attending Unavailable GILILLERRICKIE Attending Unavailab le SNEHAL, HANNAH De Leon Attending Unavailable SNEHAL, HANNAH M Attending Unavailable SNEHAL, HANNAH M Attending Unavailable SNEHAL, HANNAH M Attending Unavailable MOUKARBEL, RAFAEL Admitting Unavailable MOUKARBEL, RAFAEL Attending Unavailable MOUKARBEL, RAFAEL Attending Unavailable MOUKARBEL, RAFAEL Referring Unavailable MOUKARBEL, RAFAEL Referring Unavailable MAXIMILIAN, PATTY Referring Unavailable ROGER, RADHA Referring Unavailable ROGER, RADHA Referring Unavailable MOUKARBEL, RAFAEL Referring Unavailable MOUKARBEL, RAFAEL Attending Unavailable MAXIMILIAN, PATTY Referring Unavailable CARLOS ALBERTO, MARJ Attending Unavailable MAXIMILIAN, PATTY Attending Unavailable MAXIMILIAN, PATTY Referring Unavailable MOUKARBEL, RAFAEL Referring Unavailable MAXIMILIAN, PATTY Referring Unavailable MOUKARBEL, RAFAEL Attending Unavailable MAXIMILIAN, PATTY Referring Unavailable MICHELLEGABE Referring Unavailable ROGER, RADHA Referring Unavailable MAXIMILIAN, PATTY Referring Unavailable CARLOS ALBERTO, MARJ Attending Unavailable MOUKARBEL, RAFAEL Attending Unavailable MAXIMILIANPATTY Admitting Unavailable MAXIMILIAN, PATTY Attending Unavailable MOUKARBEL, RAFAEL Admitting Unavailable MOUKARBEL, RAFAEL Attending Unavailable Allergies Allergy Classification Reported Allergen(s) Allergy Type Date of Onset Reaction(s) Facility (20 sources) Cephalexin; Translations: [cephalexin] Drug Allergy 3 GI intolerance, Unknown [facility] (20 sources) Egg; Translations: [Eggs] Food allergy Unknown (qualifier value) [facility] (20 sources) Meperidine; Translations: [meperidine] Drug Allergy 0 Syncope (disorder), Other: See Comments [facility] (20 sources) Morphine; Translations: [morphine] Drug Allergy 3 Unknown [facility] (20 sources) Sulfonamides (Antibiotic); Translations: [sulfa drugs] Drug allergy Nausea [facility] (2 sources) Aspirin; Translations: [ASPIRIN] Drug Allergy 0 Other: See Comments [facility] (9 sources) Latex; Translations: [LATEX] Drug Intolerance 3 Rash, Hives [facility] (20 sources) Aluminum aspirin Drug Allergy 0 [facility] (20 sources) Amoxicillin; Translations: [AMOXICILLIN] Drug Allergy 3 Diarrhea [facility] (20 sources) Erythromycin; Translations: [ERYTHROMYCIN] Drug Allergy 3 Unknown [facility] (20 sources) Latex Propensity to adverse reactions 3 Hives, Rash [facility] (20 sources) Meperidine Drug Allergy 3 Unknown [facility] (20 sources) Sulfonamides (Antibiotic) Drug Allergy 3 GI intolerance, Intolerance [facility] (20 sources) WHEAT DEXTRIN; Translations: [WHEAT BRAN] Drug Allergy 3 [facility] (20 sources) WHEAT DEXTRIN Drug Allergy 3 [facility] (5 sources) Eggs Or Egg-Derived Products Drug Allergy 3 [facility] (15 sources) egg extract; Translations: [EGG] Drug Allergy 4 Intolerance, GI Upset [facility] (4 sources) Meperidine; Translations: [Demerol HCl] Drug Allergy [facility] (2 sources) Sulfonamides (Antibiotic); Translations: [SULFA (SULFONAMIDE ANTIBIOTICS)] Propensity to adverse reactions to drug (disorder) 3 [facility] Repository (20 sources) empagliflozin; Translations: [EMPAGLIFLOZIN] Drug Allergy 4 Angioedema [facility] Work Phone: (20 sources) Egg-Derived Products Drug Allergy 3 [facility] (20 sources) Amiodarone; Translations: [AMIODARONE] Drug Allergy 4 Nausea And Vomiting [facility] (20 sources) Valsartan; Translations: [VALSARTAN] Propensity to adverse reactions 4 [facility] [employer] (3 sources) Egg Protein-Containi ng Drug Products Drug Allergy 3 [facility] (1 source) Penicillins; Translations: [PENICILLINS] Propensity to adverse reactions to drug (disorder) 5 [facility] Repository (1 source) EGG DERIVED; Translations: [EGG DERIVED] Propensity to adverse reactions to drug (disorder) 3 [facility] Repository Medications Current Medications Medication Drug Class(es) Dates Sig (Normalized) Sig (Original) amoxicillin 500 mg / clavulanate 125 mg oral tablet (2 sources) Penicillin-class Antibacterial Start: 07-19-2023 End: 08-02-2023 Augmentin 500 mg-125 mg Tab 1 tab(s), Oral, q24hr for 14 day(s), 14 tab(s), Refill(s) 0, [facility] #[facility], 165, cm, 07/19/23 15:21:00 EST, Height/Length [...] BID, # 60 tab(s), Refills(s) 0, Pharmacy: [facility] #[id number], 165, cm, 07/02/23 21:30:00 EST, Height/Length Dosing, 55.7, kg, 07/02/23 21:30:00 EST, Weight Dosing Start Date: 07/11/23 Status: Ordered Start: 07-11-2023 take 1 tablet by antonio th twice daily Eliquis 5 mg oral tablet 5 mg = 1 tab(s), Oral, BID, # 60 tab(s), Refills(s) 0, Pharmacy: [facility] #[id number], 165, cm, 07/02/23 21:30:00 EST, Height/Length Dosing, 55.7, kg, 07/02/23 21:30:00 EST, Weight Dosing Start Date: 07/11/23 Status: Ordered Start: 07-11-2023 take 1 tablet by antonio th twice daily Eliquis 5 mg oral tablet 5 mg = 1 tab(s), Oral, BID, # 60 tab(s), Refills(s) 0, Pharmacy: [facility] #[id number], 165, cm, 07/02/23 21:30:00 EST, Height/Length Dosing, [...] day(s), # 28 tab(s), Refills(s) 0, Pharmacy: [facility] #[facility], 165, cm, 10/05/23 18:07:00 EST, Height/Length [...] completed, # 2 tab(s), Refills(s) 0, Pharmacy: [facility] #[id number], 165, cm, 04/26/23 15:23:00 EDT, Height/Length Dosing, 54.7, kg, 04/26/23 15:23:00 EDT, Weight Dosing Start Date: 04/26/23 Status: Ordered Start: 10-14-2022 take 1 tablet by antonio th once daily Cipro 500 mg Tab 500 mg = 1 tab(s), Oral, Daily, Take 1 tablet the day before the procedure and 1 tablet after the procedure, # 2 tab(s), Refills(s) 0, Pharmacy: [facility], 165, cm, 10/03/22 14:34:00 EST, Height/Length Dosing, 54.7, kg, 10/03/22 14:34:00 E... Start Date: 10/14/22 Status: Ordered Start: 03-03-2022 take 1 tablet by antonio once daily Cipro 500 mg Tab 500 mg = 1 tab(s), Oral, As Directed, Take 1 tablet day before procedure, and then 1 tablet day of procedure after procedure, # 2 tab(s), Refills(s) 0, Pharmacy: [facility], 165, cm, 03/03/22 10:04:00 EDT, Height/Length Dosing, 54, kg, 02/12... Start Date: 03/03/22 Status: Ordered dexamethasone 1 mg/ml / neomycin 3.5 mg/ml / polymyxin b 81508 unt/ml ophthalmic suspension (20 sources) Aminoglycoside Antibacterial, Polymyxin-class Antibacterial, Corticosteroid Start: 10-30-2024 qdrvtjui-jmpnnjpkp-imsCYSFJm sone (Maxitrol) 3.5-81972-9.1 ophthalmic suspension 10/30/2024 Active Start: 10-30-2024 take 1 drop(s) into the eye(s) four times daily osgdsjrz-lflkxhysn-yivDSSBXizbws (Maxitr ol) 3.5-58285-6.1 ophthalmic suspension INSTILL 1 DROP into affected eye FOUR TIMES DAILY FOR 14 DAYS 10/30/2024 Active dicyclomine hydrochloride 10 mg oral capsule (1 source) Anticholinergic Start: 07-01-2023 End: 07-08-2023 take 1 capsule by mouth four times daily Bentyl 10 mg Cap 10 mg = 1 cap(s), Oral, QID, X 7 day(s), # 14 cap(s), Refills(s) 0, Pharmacy: [facility] #[id number], 165, cm, 06/30/23 19:37:00 EST, Height/Length Dosing, [...] (at bedtime), 42.5 gm, Refill(s) 6, [facility], 165.1, cm, 01/28/23 21:34:00 EDT, Height/Length Dosing, 54.5, kg, 01/28/23 21:34:00 EDT, Weight Dosing Start Date: 03/20/23 Status: Ordered Start: 03-03-2022 estradiol 0.1 mg/g vaginal cream 1 gm, Vaginal, MonFri, # 42.5 gm, Refills(s) 6, Pharmacy: [facility], 165, cm, 03/03/22 10:04:00 [...] # 42.5 gm, Refills(s) 6, Pharmacy: [facility], 165, cm, 02/23/21 13:24:00 EDT, [...] # 42.5 gm, Refills(s) 6, Pharmacy: [facility], 165, cm, 03/03/22 10:04:00 EDT, Height/Length Dosing, 54, kg, 03/03/22 10:04:00 EDT, Weight Dosing Start Date: 03/03/22 Status: Ordered Start: 02-26-2021 estradiol 0.1 mg/g vaginal cream 1 gm, Vaginal, MonFri, # 42.5 gm, Refills(s) 6, Pharmacy: [facility], 165, cm, 02/23/21 13:24:00 [...] day(s), # 100 mL, Refills(s) 0, Pharmacy: [facility] #[facility], 165, cm, 11/22/23 16:28:00 EDT, Height/Length [...] antonio th once daily. polyethylene glycol 3350 73450 mg powder for oral solution (20 sources) [...] Daily, # 255 gm, Refills(s) 0, Pharmacy: [facility] #[id number], 165, cm, 07/02/23 21:30:00 EST, Height/Length Dosing, [...] for 7 day(s), 5 mL, Refill(s) 0, [facility] #[id number], 165, cm, 12/24/21 17:41:00 EDT, Height/Length Dosing, 54, kg, 12/24/21 17:41:00 EDT, Weight Dosing Start Date: 12/24/21 Stop Date: 12/31/21 Status: Ordered Zofran ODT 4 mg Tab-Dis (12 sources) Start: take 1 tablet by mouth every eight hours Zofran ODT 4 mg Tab-Dis 4 mg = 1 tab(s), Oral, q8hr, # 12 tab(s), Refills(s) 0, Pharmacy: [facility] #[id number], 165, cm, 06/30/23 19:37:00 EST, Height/Length Dosing, [...] Daily, # 60 tab(s), Refills(s) 0, Pharmacy: [facility] #[id number], 165, cm, 07/02/23 21:30:00 EST, Height/Length Dosing, [...] monobasic 96.4 mg/ml enema (2 sources) Start: End: sodium phosphate (Fleet) 7-19 GM/118ML enema [...] Coronary atherosclerosis; Translations: [Atherosclerotic heart disease of [place] coronary artery without angina pectoris] Onset: 3 [...] current use of drug therapy; Translations: [Other intermediate manager (current) drug therapy] Onset: 3 Episodic Other [...] Translations: [Longstanding persistent atrial fibrillation] Onset: 5 Varicose veins of lower extremity (2 sources) [...] sources) Long-term 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; Translations: [detention (current) use of 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s] Onset: 01-09-2024 09-26-2023 [...] Test Name Value Interpretation Reference Range Facility 3605-30-[address] vega, pt can resume all activities as normal starting now. Pt informed She will hold the vaginal dilator for 10 days per pt everything else she will resume. Normal [facility] 3605-29-2025 36 Has 1 week follow-up scheduled? yes Has 30 day echo and follow-up visit scheduled? yes Any trouble breathing? No Any fever above 100 degrees or chills? No Persistent throat soreness? No. Slight cough, same as prior to discharge Access site: Hematoma: Estimated size? No Ecchymosis:not worsening Drainage? If so, is it clear? none Neuro: Any vision changes or blurred vision? No Transient loss of peripheral vision? No Any slurred speech or episodes of confusion? No Fluid retention: Any changes to urinary output? No, urinating well Reminded of dental prophylaxis? (Lifetime for valve) yes Patient stated she is feeling okay but tired since arriving home. Pt stated she was not resting well for weeks prior to the procedure. Beadworker instructed pt to avoid strenuous activity or heavy lifting for at least a week. Beadworker reached out to field laboratory operator RN regarding the device card and per staff, the patient should have one card with two device stickers on the card. Patient was wondering when she could resume using her vaginal dilator as she is concerned about waiting too long. Provider has been notified of of this patient question and awaiting response. Patient is aware of her follow-up appts. No additional questions or concerns at this time. Normal [facility] Telephoneon 05-29-2025 Telephone [phone] Harjit Asencio I 1950 F Date Provider Department Center 05/29/2025 NATHAN WALTERS [facility] [place] [facility] Family History Problem Relation Age of Onset Coronary artery disease Mother Diabetes Mother Coronary artery disease Father Family Status - Relation Status Age at Mother Father Sister Brother Alive Reason for Visit and Comments: T-ANA follow-up call [Other] Normal [facility] 30on 05-28-2025 30 The patient is Moderately Stable - Low risk of patient condition declining or worsening The patient's goals for the shift include comfort The clinical goals for the shift include stable vitals, safety Problem: Pain - Adult Goal: Verbalizes/displays adequate comfort level or baseline comfort level 05/28/20251428 by Ziggy Brown RN Outcome: Adequate for Discharge 05/28/2025 0943 by Ziggy Brown RN Outcome: Progressing Problem: Safety - Adult Goal: Free from fall injury 05/28/20251428 by Ziggy Brown RN Outcome: Adequate for Discharge 05/28/2025 0943 by Ziggy Brown RN Outcome: Progressing Normal [facility] 30 The patient is Moderately Stable - Low risk of patient condition declining or worsening The patient's goals for the shift include comfort The clinical goals for the shift include stable vitals, safety Problem: Pain - Adult Goal: Verbalizes/displays adequate comfort level or baseline comfort level Outcome: Progressing Problem: Safety - Adult Goal: Free from fall injury Outcome: Progressing Problem: Discharge Planning Goal: Discharge to home or other facility with appropriate resources Outcome: Progressing Normal [facility] BASIC METABOLIC PANELon 05-14 Anion gap [Moles/Vol] 11 mmol/L Normal 7-20 [facility] Comment on above: Performed By: #### L [id number] #### [facility] [address] [place] [address] [facility] Calcium [Mass/Vol] 8.5 mg/dL Low 8.6-10.3 [facility] Comment on above: Performed By: #### L [id number] #### [facility] [address] [place] [address] [place] Chloride [Moles/Vol] 102 mmol/L Normal 98-107 [facility] Comment on above: Performed By: #### L [id number] #### [facility] [address] [place] [address] [facility] CO2 [Moles/Vol] 27 mmol/L Normal 21-31 [facility] Comment on above: Performed By: #### L [id number] #### [facility] [address] [place] [address] [facility] Creatinine [Mass/Vol] 0.93 mg/dL Normal 0.60-1.20 [facility] Comment on above: Performed By: #### L [id number] #### [facility] [address] [place] [address] [place] GLOMERULAR FILTRATION RATE ML/MIN/1.73 SQ M.PREDICTED 63.3 mL/min/1.73m*2 Normal >60.0 [facility] Comment on above: Result Comment: [facility]???s estimated glomerular filtration rate (eGFR) [...] group of individuals. Performed By: #### L [id number] #### [facility] [address] [place] [address] [place] Glucose [Mass/Vol] 211 mg/dL High 70-100 [facility] Comment on above: Performed By: #### L [id number] #### [facility] [address] [place] [address] [facility] Potassium [Moles/Vol] 4.6 mmol/L Normal 3.5-5.1 [facility] Comment on above: Performed By: #### L [id number] #### [facility] [address] [place] [address] [facility] Sodium [Moles/Vol] 135 mmol/L Low 136-145 [facility] Comment on above: Performed By: #### L [id number] #### [facility] [address] [place] [address] [facility] Urea nitrogen [Mass/Vol] 14 mg/dL Normal 7-25 [facility] Comment on above: Performed By: #### L [id number] #### [facility] [address] [place] [address] [facility] UREA NITROGEN/CREATININE (MASS RATIO) IN SER/PLAS 15.1 Normal [facility] Comment on above: Performed By: #### L [id number] #### [facility] [address] [place] [address] [facility] CBC WITH AUTO DIFFERENTIALon 05-28-2025 Basophils (Bld) [#/Vol] 0.01 10*3/uL Normal 0.00-0.20 [facility] Comment on above: Performed By: #### L [id number] #### [facility] [address] [place] [address] [place] Basophils/100 WBC (Bld) 0.1 % Normal 0.0-1.0 [facility] Comment on above: Performed By: #### L [id number] #### [facility] [address] [place] [address] [place] Eosinophils (Bld) [#/Vol] 0.00 10*3/uL Normal 0.00-0.50 [facility] Comment on above: Performed By: #### L [id number] #### [facility] [address] [place] [address] [place] Eosinophils/100 WBC (Bld) 0.0 % Normal 0.0-6.0 [facility] Comment on above: Performed By: #### L [id number] #### [facility] [address] Erythrocyte distribution width (RBC) [Ratio] 14.2 % Normal 11.5-15.0 [facility] Comment on above: Performed By: #### L [id number] #### [facility] [address] ERYTHROCYTE MEAN CORPUSCULAR HEMOGLOBIN CONCENTRATION (G/DL) BY AUTOMATED 32.2 g/dL Normal 32.0-35.0 [facility] Comment on above: Performed By: #### L [id number] #### [facility] [address] Hematocrit (Bld) [Volume fraction] 38.2 % Normal 36.0-45.0 [facility] Comment on above: Performed By: #### L [id number] #### [facility] [address] Hemoglobin (Bld) [Mass/Vol] 12.3 g/dL Normal 12.0-15.0 [facility] Comment on above: Performed By: #### L [id number] #### [facility] [address] Immature granulocytes (Bld) [#/Vol] 0.06 10*3/uL Normal 0.00-0.20 [facility] Comment on above: Performed By: #### L [id number] #### [facility] [address] Immature granulocytes/100 WBC (Bld) 0.5 % Normal 0.0-1.0 [facility] Comment on above: Performed By: #### L [id number] #### [facility] [address] Lymphocytes (Bld) [#/Vol] 0.42 10*3/uL Low 1.20-4.00 [facility] Comment on above: Performed By: #### L [id number] #### [facility] [address] [place] [address] [facility] Lymphocytes/100 WBC (Bld) 3.3 % Low 20.0-45.0 [facility] Comment on above: Performed By: #### L [id number] #### [facility] [address] [place] [address] [facility] MCH (RBC) [Entitic mass] 29.9 pg Normal 27.0-33.0 [facility] Comment on above: Performed By: #### L [id number] #### [facility] [address] [place] [address] [facility] MCV (RBC) [Entitic vol] 92.9 fL Normal 82.0-98.0 [facility] Comment on above: Performed By: #### L [id number] #### [facility] [address] [place] [address] [facility] Monocytes (Bld) [#/Vol] 0.65 10*3/uL Normal 0.10-1.00 [facility] Comment on above: Performed By: #### L [id number] #### [facility] [address] [place] [address] [facility] Monocytes/100 WBC (Bld) 5.1 % Normal 5.0-12.0 [facility] Comment on above: Performed By: #### L [id number] #### [facility] [address] [place] [address] [facility] Neutrophils (Bld) [#/Vol] 11.71 10*3/uL High 1.60-7.60 [facility] Comment on above: Performed By: #### L [id number] #### [facility] [facility] [address] [place] [address] [facility] Neutrophils/100 WBC (Bld) 91.0 % High 40.0-72.0 [facility] Comment on above: Performed By: #### L [id number] #### [facility] [address] [place] [address] [facility] NRBC (PER 100 WBCS) BY AUTOMATED COUNT 0.0 % Normal 0 [facility] Comment on above: Performed By: #### L [id number] #### [facility] [address] PLATELETS (10*3/UL) IN BLOOD AUTOMATED COUNT 184 10*3/uL Normal 150-400 [facility] Comment on above: Performed By: #### L [id number] #### [facility] [address] RBC (Bld) [#/Vol] 4.11 10*6/uL Normal 3.80-5.00 [facility] Comment on above: Performed By: #### L [id number] #### [facility] [address] WBC (Bld) [#/Vol] 12.85 10*3/uL High 4.00-10.60 [facility] Comment on above: Performed By: #### L [id number] #### [facility] [address] CONSULTon 05-28-2025 CONSULT discharge planning: to Home Patient came to this admission from their private residence in the community, a planned admission for transcatheter [id number] repair with TriClip; information writer confirmed no wound care needed from procedure Normal [facility] DSon 05-28-2025 DS - Attestation signed by Gabe Martinez MD at 05/28/2025 2:15 PM By using the attestations below, the signing clinician agrees that I have read and verify that the documentation has been personally reviewed by me and ensure that the documentation accurately reflects the encounter. GC: I personally saw this patient on the day of the encounter with Dr. Saeed, Dr. HallDr. Abdi samson, performed the mansfield portion(s) of the service and participated in the management and confirm the resident's documentation. Please note there may be an additional personal documentation from me. Admission Admitted 05/27/2025 for Nonrheumatic tricuspid valve regur* Discharge Diagnosis Nonrheumatic mitral (valve) insufficiency Discharge Disposition Home or Self Care () [...] mouth with breakfast and with evening meal. famotidine 20 mg tablet Commonly known as: Pepcid Take 1 tablet (20 mg) by mouth two times daily for 15 days. LORazepam 0.5 mg tablet Commonly known as: Ativan spironolactone 25 mg tablet Commonly known as: Aldactone Take 0.5 tablets (12.5 mg) by mouth once daily as directed. STOP taking these medications amoxicillin 500 mg tablet Commonly known as: Amoxil ASK your doctor about these medications Instructions Last Dose Given Next Dose Due pantoprazole 40 mg EC tablet Commonly known as: ProtoNix Activity Patient currently has no discharge activity orders Diet Patient currently has no discharge diet orders Allergies Amoxicillin, Demerol [meperidine], Amiodarone, Cephalexin, Egg derived, Empagliflozin, Erythromycin, Morphine, Sulfa (sulfonamide antibiotics), Valsartan, and Wheat bran Hospital Course Harjit Asencio is a 75 y.o. female with PMH significant for HFrEF (EF 40%), chronic atrial fibrillation maintained on digoxin and carvedilol, severe mitral regurgitation s/p ANA using an XTW MitraClip device, hypertension, and hypothyroidism. Patient was directly admitted for transcather edge to shantal repair with TriClip for her severe tricuspid regurgitation. Her symptoms have been worsening despite optimized medical therapy, remains symptomatic with NYHA Class III heart failure. Relevant Cardiac HX: Her clinical decline began in June 2023, [...] complications, and she remained hemodynamically stable throughout. Patient was admitted for ANA with TriClip for symptomatic non rheumatic severe tricuspid regurgitation. She successfully underwent TriClip on 05/27/2025. Follow up Echo showed Two Triclips visualized, one in the anteroseptal location and the other in the posteroseptal location. Trivial to mild regurgitation noted with a mean gradient of 1 mmHg. MitraClip appears to be well seated with trivial regurgitation and a mean gradient of 4 mmHg. On examination, bilateral groin access sites were intact without bleeding, oozing, or evidence of hematoma. Distal pulses were palpable at +2 bilaterally, and the patient denied numbness, tingling, or pain at or distal to the access sites. Patient was discharged on the following day, 05/28/2025. Pertinent Physical Exam At Time of Discharge Physical Exam Physical Examination: Vitals: 05/28/25 1111 BP: 126/73 Pulse: 70 Resp: 19 Temp: 36.3 ???C (97.3 ???F) SpO2: Constitutional: Vitals reviewed,comfortable breathing HEENT: Normocephalic, Atraumatic, Moist oral mucosa Eyes: Clear conjunctiva, Pupils reactive to light Neck: Supple, No thyromegaly (more content not included)... Normal [facility] 30on 05-27-2025 30 The patient is Moderately Stable - Low risk of patient condition declining or worsening The patient's goals for the shift include comfort, rest The clinical goals for the shift include VSS, safety, cath site checks Normal [facility] 30 The patient is Moderately Stable - Low risk of patient condition declining or worsening The patient's goals for the shift include The clinical goals for the shift include Problem: Pain - Adult Goal: Verbalizes/displays adequate comfort level or baseline comfort level Outcome: Progressing Problem: Safety - Adult Goal: Free from fall injury Outcome: Progressing Problem: Chronic Conditions and Co-morbidities Goal: Patient's chronic conditions and co-morbidity symptoms are monitored and maintained or improved Outcome: Progressing Normal [facility] ABG COMPLETE UNSOLICITED RES ULTSon 05-27-2025 A-ADO2 Normal [facility] Comment on above: Result Comment: C^In calculable Performed By: #### L [id number] #### [facility] [address] [place], [place] [address] Base excess Calc (Bld) [Moles/Vol] -0.5000 mmol/L Normal -2.0-3.0 [facility] Comment on above: Performed By: #### L [id number] #### [facility] [address] [place] [address] [place] CALCIUM IONIZED, ARTERIAL 1.18 mmol/L Normal 1.13-1.32 [facility] Comment on above: Performed By: #### L [id number] #### [facility] [address] [place] [address] [place] CARBOXYHEMOGLOBIN, ARTERIAL 1.0 % Normal [facility] Comment on above: Performed By: #### L [id number] #### [facility] [address] [place] [address] [place] Chloride [Moles/Vol] 104 mmol/L Normal 98-107 [facility] Comment on above: Performed By: #### L [id number] #### [facility] [address] [place] [address] [place] CO2 (Bld) [Partial pressure] 39 mm[Hg] Normal 35-45 [facility] Comment on above: Performed By: #### L [id number] #### [facility] [address] [place] [address] [place] DEOXYGENATED HEMOGLOBIN, ARTERIAL 0.3 % Normal [facility] Comment on above: Performed By: #### L [id number] #### [facility] [address] [place] [address] [place] Glucose [Mass/Vol] 112 mg/dL High 65-95 [facility] Comment on above: Performed By: #### L [id number] #### [facility] [address] [place] [address] [place] HCO3 (Bld) [Moles/Vol] 24.2 mmol/L Normal 21.0-28.0 [facility] Comment on above: Performed By: #### L [id number] #### [facility] [address] [place] [address] [place] Hematocrit (Bld) [Volume fraction] 35 % Low 37-50 [facility] Comment on above: Performed By: #### L [id number] #### [facility] [address] [place] [address] [place] Hemoglobin (Bld) [Mass/Vol] 11.8 g/dL Normal [facility] Comment on above: Performed By: #### L [id number] #### [facility] [address] [place] [address] [place] LACTATE, ARTERIAL 0.90 mmol/L Normal 0.36-1.39 [facility] Comment on above: Performed By: #### L [id number] #### [facility] [address] [place] [address] [place] METHEMOGLOBIN, ARTERIAL 0.7 % Normal 0.0-1.5 [facility] Comment on above: Performed By: #### L [id number] #### [facility] [address] [place] [address] [place] Oxygen (Bld) [Partial pressure] 152 mm[Hg] High 83-108 [facility] Comment on above: Performed By: #### L [id number] #### [facility] [address] [place] [address] [place] OXYGEN SATURATION (%) IN ARTERIAL BLOOD 99.7 % Normal 94.0-100.0 [facility] Comment on above: Performed By: #### L [id number] #### [facility] [address] [place] [address] [place] OXYGENATED HEMOGLOBIN IN ARTERIAL BLOOD 98.0 % High 94.0-97.0 [facility] Comment on above: Performed By: #### L [id number] #### [facility] [address] [place] [address] [place] PAO2/PAO2 Normal [facility] Comment on above: Result Comment: C^In calculable Performed By: #### L [id number] #### [facility] [address] [place] [address] [place] PF RATIO Normal [facility] Comment on above: Result Comment: C^In calculable Performed By: #### L [id number] #### [facility] [address] [place] [address] [place] PH OF ARTERIAL BLOOD 7.40 Normal 7.35-7.45 [facility] Comment on above: Performed By: #### L [id number] #### [facility] [address] [place] [address] [place] Potassium [Moles/Vol] 3.7 mmol/L Normal 3.4-5.2 [facility] Comment on above: Performed By: #### L [id number] #### [facility] [address] [place] [address] [place] Sodium [Moles/Vol] 135 mmol/L Low 136-146 [facility] Comment on above: Performed By: #### L [id number] #### [facility] [address] [place] [address] [place] TEMPERATURE 37.0 ???C [facility] Comment on above: Performed By: #### L [id number] #### [facility] [address] [place] [address] [facility] HPon 05-27-2025 HP H&P reviewed. The patient was examined and there are no changes to the H&P. Harjit Asencio is being treated for severe tricuspid regurgitation. Despite optimal medical therapy she remains symptomatic. She has been discussed by our structural heart team including interventional cardiology, cardiothoracic surgery, heart failure, and structural heart imagers, who have reviewed clinical data and cardiac imaging and feel she is appropriate for transcatheter end to end tricuspid valve repair with TriClip. she is brought today for the procedure. Risks and benefits and alternatives to the procedure were discussed with the patient today again including risk of [place], stroke, and possible need for conversion to open surgical approach. She understands and agrees to proceed. She signed informed consent. Normal [facility] Orders Onlyon 05-27-2025 Orders Only [id number] Harjit Asencio I 1950 F Date Provider Department Center 05/27/2025 NATHAN WALTERS [facility] [place] [facility] Family History Problem Relation Age of Onset Coronary artery disease Mother Diabetes Mother Coronary artery disease Father Family Status - Relation Status Age at Mother Father Sister Brother Alive [facility] POCT GLUCOSE METER UNSOLICIT ED RESULTSon 05-27-2025 Glucose [Mass/Vol] 90 mg/dL Normal 70-105 [facility] Comment on above: Order Comment: Waive d Testing in the ED is performed under the ED CLIA certificate #[id number]. Result Comment: asor ia3 Performed By: #### L [id number] #### [facility] [address] [place] [address] [facility] TYPE AND SCREENon 05-27-2025 AB SCREEN Negative Normal [facility] Comment on above: Performed By: #### L [id number] #### [facility] , ABO group Nom (Bld) O Normal [facility] Comment on above: Performed By: #### L [id number] #### [facility] , RH TYPE IN BLOOD Positive Normal [facility] Comment on above: Performed By: #### L [id number] #### [facility] , HPon 05-19-2025 [facility] - [facility] Germain Asencio is a 75 y.o. year old female patient being seen for 2 month follow up. Patient states the last 2 week she hasn't been feeling well, patient states she feels like things are wrong now, patient states the valve is acting up, which is causing lots of anxiety, Dr. Yao stated to here where this valve is located it a more difficult procedure. Patient states she is SOB, VELAZCO with activity, wore out, acid reflux acting up, anxiety, patient states the c diff and bleeding out from having her teeth removed. Patient would like to go to [facility] for cardiac rehab. The blood thinner are causing her problems. Patient Active Problem List Diagnosis Acid reflux [...] insomnia Urethral stricture Urinary frequency Urinary urgency detention 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 Paroxysmal atrial fibrillation (CMS/HCC) Presence of biventricular automatic cardioverter/defibril lator (AICD) Nonrheumatic mitral valve regurgitation Severe mitral regurgitation S/P mitral valve repair Nonrheumatic mitral (valve) insufficiency Family History Problem Relation Name Age of [...] At her recent visit with cardiology at [facility] on 09/26/2023 valsartan was stopped and low-dose lisinopril 5 mg once daily was added. The plan was to add Jardiance. There is note of her to being evaluated by CT surgery Dr. Sorto regarding candidacy for cardiac surgery and she was deemed high risk. She was also evaluated at [facility] cardiothoracic surgery. Initial workup for her mitral valve disease was started. Spironolactone was changed to half tablet twice a day instead of 1 tablet once a day. She was also recommended to start taking digoxin at night instead of the morning. At visit with nc on 10/16/2023 I increased her carvedilol to 6.25 mg twice daily. I asked for a cardiopulmonary excise test. After visit with nc on 10/30/2023 I added Jardiance 10 mg daily to optimize GDMT for systolic heart failure. I also started her on amiodarone to attempt rhythm control. Following that she stopped both medications due to side effects. After visit with nc on 12/01/2023 I referred her to [facility] [...] moderately elevated right-sided pressures RVSP 49 mmHg. She then und (more content not included)... Normal [facility] Office Visiton 05-19-2025 Follow-up visit [id number] Harjit Asencio I 1950 F Date Provider Department Center 05/19/2025 [facility] Family History Problem Relation Age of Onset Coronary artery disease Mother Diabetes Mother Coronary artery disease Father Family Status - Relation Status Age at Mother Father Sister Brother Alive Level of Service:48469 DE OFFICE/OUTPATIENT ESTABLISHED HIGH MDM 40 MIN Normal [facility] Orders Onlyon 05-14-2025 Orders Only [id number] Harjit Asencio I 1950 Provider Department Center 05/14/2025 James-RADHA [facility]OG[facility] Family History Problem Relation Age of Onset Coronary artery disease Mother Diabetes Mother Coronary artery disease Father Family Status - Relation Status Age at Mother Father Sister Brother Alive Normal [facility] Urinalysis macro (dipstick) panel (U)on 05-08-2025 Bilirubin, UA Negative Negative - 4(70) +++ mg/dL [facility] Blood, UA Negative Negative - 50 Pedro/mcL [facility] Healthcare Clarity, UA Clear [facility] Color, UA Yellow [facility] Glucose, UA Negative Negative - 2000(110) ++++ mg/dL [facility] Ketones, UA Negative Negative - 160(16) ++++ mg/dL [facility] Leukocytes, UA Negative Negative - 500+++ Ghislaine/mcL [facility] Nitrite, UA Negative Negative - Positive [facility] pH, UA 7 5 - 9 [facility] Protein, UA Negative Negative - 2000(20) ++++ mg/dL [facility] Spec Grav, UA 1.01 1 - 1.03 [facility] Urobilinogen, UA 0.2 0.2 - 12 mg/dL [facility] ED Clinical Summaryon 2024 ED Clinical Summary ED Clinical Summary [place] [id number] ED Clinical Summary Person Information Name: HARJIT ASENCIO I [place] Age: 75 Years : 1950 Sex: Female Language: Citizen Of [place] PCP: Snehal MCMAHON, Hannah De Leon Marital Status: Visit Id: Visit Reason: Medical screening exam; [...] 04/28/2025 01:39:01 04/28/2025 01:39:01 04/28/2025 01:39:01 ADDRESS: [address] [place] [address] [address] [facility] [id number] PHYS DOC NOTES: MEDICAL INFORMATION: Prescriptions Given: [...] Address: When: [address] [place] [address] [facility] (Pounce In 3 days 05/01/2025 Comments: Continue next dose of vancomycin as scheduled. DIAGNOSIS: 1:Accidental medication overdose Normal [facility] ED Note-Physicianon 04-28-20 ED Note-Physician ED Note-Physician [...] and Complexity of Problems Differential Diagnosis: [] [facility] Data External documents reviewed: [] My [...] days 05/01/[address] [place] [address]- Business (1) Additional Instructions: Continue next dose [...] per year, (more content not included)... Normal [facility] Comment on above: Result Comment: Elec tronically Signed By: Yvette Vasquez, Layton Cazares\.br\Date and Time Signed: 04/28/25 03:57 EDT ED Patient Summaryon 025 ED Patient Summary ED Patient Summary [address] [address] Patient Discharge Instructions Person Information Name: HARJIT ASENCIO I Age: 75 Years Arrival Date: 04/28/2025 00:50:29 Discharge Diagnosis: 1:Accidental medication overdose Primary Care Physician: Hannah Brian MD Provider Information Primary Provider: Layton Crawford M.D. Advanced Payloader Operator:None The exam and treatment you received in the Emergency Department were for an urgent problem and are not intended as complete care. It is important that you follow up with a doctor, nurse practitioner, or physician???s geriatric assistant for ongoing care. If your symptoms become worse or you do not improve as expected and you are unable to reach your usual health care provider, you should return to the Emergency Department. We are available 24 hours a day. JERONIMO ASENCIOYCStas Ruiz has been given the following list of patient education materials, prescriptions and follow-up instructions: Follow-up Instructions: With: Address: When: [address] [place] [address] Business (1) In 3 days [...] opioids can be used to help relieve rvoieruv-do-dowdte pain and are often prescribed following a [...] be stru (more content not included)... Normal [facility] Lab Miscellaneous-LCon 04-28 Lab Miscellaneous COMMENT Invalid Interpretation Code [facility] Comment on above: Result Comment: Test Ordered: [id number] C difficile Toxins A+B, EIA C difficile Toxins A+B, EIA Positive [A ] Reference Range: Negative Performed at: [facility] [address] [place], [place] [id number] PhD Emily Fraser Performed By: #### 1 [id number] #### [facility] [address] [place] [address] O & P EXAM, ROUTINE, REFLEXo n 04-28-2025 Result 1 Comment Invalid Interpretation Code [facility] Comment on above: Result Comment: No o va, cysts, or parasites seen. One negative specimen does not rule out the possibility of a parasitic infection. Performed at: [facility] [address] [place], [place] [id number] PhD Emily Fraser Performed By: #### 3 [id number] #### [facility] [address] [place] [address] O & P Exam, Routineon 2024 Ova/Para Exam Rt Final report Invalid Interpretation Code [facility] Comment on above: Result Comment: Thes e results were obtained using wet preparation(s) and trichrome stained smear. This test does not include testing for Cryptosporidium parvum, Cyclospora, or Microsporidia. Performed at: [facility] [id number] PhD Emily Fraser Performed By: #### 1 [id number] #### [facility] [address] [place] [address] C. diff by PCRon 04-24-2025 Clostridium difficile by PCR Positive Abnormal Negative [facility] Comment on above: Result Comment: Resu lts Called To Jennifer Alcaraz/Doron By laquita And Read Back For Confirmation On 04/24/2025 12:20:03 EDT. This test result should be correlated with clinical presentations and medical history by a healthcare provider to determine its clinical significance. Performed By: #### 4 [id number] #### [facility] [address] [place] [address] CDiff PCRon 04-24-2025 Cdiff Specimen Acceptable Acceptable Normal [facility] Comment on above: Performed By: #### 3 [id number] #### [facility] [address] [place] [address] Order Cancelled No, PCR to follow Normal [facility] Comment on above: Performed By: #### 3 [id number] #### [facility] [address] [place] [address] Enteric Panel by PCRon 04-24 Campylobacter group Not detected Normal [facility] Comment on above: Result Comment: Test ing was performed utilizing reverse gypsum block setter (RT), polymerase chain reaction (PCR), and array [...] nulcleic acid test. Performed By: #### 1 [id number] #### [facility] [address] [place] [address] Enteric Panel Intrl QC Pass Normal [facility] Comment on above: Result Comment: Test ing was performed utilizing reverse gypsum block setter (RT), polymerase chain reaction (PCR), and array [...] 1 and 2. Performed By: #### 1 [id number] #### [facility] [address] [place] [address] Norovirus GI/GII Not detected Normal [facility] Comment on above: Performed By: #### 1 [id number] #### [facility] [address] [place] [address] Rotavirus A Not detected Normal [facility] Comment on above: Performed By: #### 1 [id number] #### [facility] [address] [place] [address] Salmonella species Not detected Normal [facility] Comment on above: Result Comment: This test result should be correlated with clinical presentations and medical history by a healthcare provider to determine its clinical significance. Performed By: #### 1 [id number] #### [facility] [address] [facility] [place] [address] Shiga Tox Interp Negative Normal [facility] Comment on above: Performed By: #### 1 [id number] #### [facility] [address] [facility] [place] [address] Shiga Toxin 1 Not detected Normal [facility] Comment on above: Performed By: #### 1 [id number] #### [facility] [address] [place] [address] Shiga Toxin 2 Not detected Normal [facility] Comment on above: Performed By: #### 1 [id number] #### [facility] [address] [facility] [place] [address] Shigella species Not detected Normal [facility] Comment on above: Performed By: #### 1 [id number] #### [facility] [address] [place] [address] Vibrio Group Not detected Normal [facility] Comment on above: Performed By: #### 1 [id number] #### [facility] [address] [place] [address] Yersinia enterocolitica Not detected Normal [facility] Comment on above: Performed By: #### 1 [id number] #### [facility] [address] [place] [address] Lab Miscellaneous-LCon 04-24 Source stool Invalid Interpretation Code [facility] Comment on above: Performed By: #### 1 [id number] #### [facility] [address] [place] [address] Test Code 619652 Invalid Interpretation Code [facility] Comment on above: Performed By: #### 1 [id number] #### [facility] [address] [place] [address] Test Name Cdiff Toxin EIA Invalid Interpretation Code [facility] Comment on above: Performed By: #### 1 [id number] #### [facility] [address] [place] [address] BMPon 04-19-2025 CO2 [Moles/Vol] 26 mmol/L Normal 21-31 [facility] Comment on above: Performed By: #### 2 256374 #### [facility] [address] [place] [address] Anion gap [Moles/Vol] 11 mmol/L Normal 6-16 [facility] Comment on above: Performed By: #### 2 [id number] #### [facility] [address] [place] [address] BUN/Creat Ratio 14 No Units Normal 10-20 [facility] Comment on above: Performed By: #### 2 [id number] #### [facility] [address] [place] [address] Calcium [Mass/Vol] 9.6 mg/dL Normal 8.9-11.1 [facility] Comment on above: Performed By: #### 2 [id number] #### [facility] [address] [place] [address] Chloride [Moles/Vol] 103 mmol/L Normal 101-111 [facility] Comment on above: Performed By: #### 2 [id number] #### [facility] [address] [place] [address] Creatinine [Mass/Vol] 1.0 mg/dL Normal 0.5-1.3 [facility] Comment on above: Performed By: #### 2 922639 #### [facility] [address] [place] [address] Glucose [Mass/Vol] 136 mg/dL Normal 55-199 [facility] Comment on above: Performed By: #### 2 926355 #### [facility] [address] [place] [address] Potassium [Moles/Vol] 3.9 mmol/L Normal 3.5-5.3 [facility] Comment on above: Performed By: #### 2 [id number] #### [facility] [address] [place] [address] Sodium [Moles/Vol] 136 mmol/L Normal 135-145 [facility] Comment on above: Performed By: #### 2 149259 #### [facility] [address] [place] [address] Urea nitrogen [Mass/Vol] 14 mg/dL Normal 5-21 [facility] Comment on above: Performed By: #### 2 [id number] #### [facility] [address] [place] [address] CBC w/ Auto Diffon 5 Basophil Absolute 0.0 E9/L Normal 0.0-0.2 [facility] Comment on above: Performed By: #### 2 [id number] #### [facility] [address] [place] [address] Basophils/100 WBC (Bld) 0.7 % Normal 0.0-2.0 [facility] Comment on above: Performed By: #### 2 199188 #### [facility] [address] [place] [address] Eos Absolute 0.0 E9/L Normal 0.0-0.5 [facility] Comment on above: Performed By: #### 2 875385 #### [facility] [address] [place] [address] Eosinophils/100 WBC (Bld) 0.4 % Normal 0.0-8.0 [facility] Comment on above: Performed By: #### 2 461941 #### [facility] [address] [place] [address] Erythrocyte distribution width (RBC) [Ratio] 14.4 % High 10.9-14.2 [facility] Comment on above: Performed By: #### 2 470016 #### [facility] [address] [place] [address] Hematocrit (Bld) [Volume fraction] 44.9 % Normal 34.0-46.0 [facility] Comment on above: Performed By: #### 2 329987 #### [facility] [address] [place] [address] Hemoglobin (Bld) [Mass/Vol] 14.8 g/dL Normal 12.0-16.0 [facility] Comment on above: Performed By: #### 2 500254 #### [facility] [address] [place] [address] Lymph Absolute 0.7 E9/L Low 1.0-4.0 [facility] Comment on above: Performed By: #### 2 965970 #### [facility] [address] [place] [address] Lymphocytes/100 WBC (Bld) 10.8 % Low 14.0-50.0 [facility] Comment on above: Performed By: #### 2 761119 #### [facility] [address] [place] [address] MCH (RBC) [Entitic mass] 29.8 pg Normal 27.0-34.0 [facility] Comment on above: Performed By: #### 2 335831 #### [facility] [address] [place] [address] MCHC (RBC) [Mass/Vol] 33.0 g/dL Normal 31.4-36.0 [facility] Comment on above: Performed By: #### 2 867034 #### [facility] [address] [place] [address] MCV (RBC) [Entitic vol] 90.2 fL Normal 80.0-100.0 [facility] Comment on above: Performed By: #### 2 594915 #### [facility] [address] [place] [address] [place] Absolute 0.4 E9/L Normal 0.2-1.0 [facility] Comment on above: Performed By: #### 2 148593 #### [facility] [address] [place] [address] Monocytes/100 WBC (Bld) 5.2 % Normal 4.0-14.0 [facility] Comment on above: Performed By: #### 2 722820 #### [facility] [address] [place] [address] Neutro Absolute 5.5 E9/L Normal 2.0-7.5 [facility] Comment on above: Performed By: #### 2 052987 #### [facility] [address] [place] [address] Neutro Auto 82.9 % High 36.0-75.0 [facility] Comment on above: Performed By: #### 2 090157 #### [facility] [address] [place] [address] Platelet 248.0 E9/L Normal 150.0-500.0 [facility] Comment on above: Performed By: #### 2 111793 #### [facility] [address] [place] [address] Platelet mean volume (Bld) [Entitic vol] 8.2 fL Normal 6.4-10.8 [facility] Comment on above: Performed By: #### 2 859961 #### [facility] [address] [place] [address] RBC 5.0 E12/L Normal 4.3-5.9 [facility] Comment on above: Performed By: #### 2 531502 #### [facility] [address] [place] [address] WBC 6.7 E9/L Normal 4.0-11.0 [facility] Comment on above: Performed By: #### 2 054107 #### [facility] [address] [place] [address] CT Abdomen/Pelvis w/o Contra ston 04-19-2025 CT [...] Rectal Contrast Given? No Ordering Provider: Jayson Callowya FINAL REPORT Dictated: 04/19/2025 2:13 pm Gregg Joseph DO Signed (Electronic Signature): 04/19/2025 2:13 pm Signed by: Gregg Joseph DO Transcribed by: ARAVIND Technologist: EVA Doty [facility] ED Clinical Summaryon 2024 ED Clinical Summary ED Clinical Summary [place] [id number] ED Clinical Summary Person Information Name: HARJIT ASENCIO I Patricia/[facility] Age: 75 Years : 1950 Sex: Female Language: Citizen Of [place] PCP: Snehal MCMAHON, Hannah De Leon Marital Status: Visit Id: Visit Reason: Diarrhea; [...] 04/19/2025 15:11:52 04/19/2025 15:11:52 04/19/2025 15:11:52 ADDRESS: [address] [place] [address] [address] [facility] [phone] PHYS DOC NOTES: MEDICAL INFORMATION: Prescriptions Given: New Medications [facility], [address], [place] [id number], [phone] bacillus coagulans-inulin (Probiotic Formula (Bacillus Coagulans) oral capsule) 1 Capsules By Mouth every day for 30 Days. Refills: 0. Medications to Continue Taking That Have Changed [facility], [address], [place] [id number], [phone] START: ondansetron (Zofran ODT 4 mg Tab-Dis) [...] up: With: Address: When: Ana Turner [address], [address] [place] [phone] Business (1) In 3 days 04/22/2025 Comments: Follow-up with GI for further evaluation With: Address: When: Hannah Brian [address] [place] [address] Business (1) In 3 days 04/22/2025 Comments: [...] symptoms. DIAGNOSIS: Abdominal pain, acute; Diarrhea Normal [facility] ED Note-Physicianon 04-19-20 ED Note-Physician ED Note-Physician [...] for this. Patient has been seen at [facility] twice for this. She had labs and [...] Turner In 3 days 04/22/2025 EDT [address] [facility], [address] [place] [phone] Business (1) Additional Instructions: Follow-up with GI for further evaluation Hannah Brian In 3 days 04/22/2025 EDT [address] [facility] [place] [address]- Business (1) Additional Instructions: Call the office of your primary care doctor to arrange for follow-up within the above-stated timeframe. Follow-up with your primary care doctor about this ED visit. You should review your labs, imaging, and diagnoses from this ED visit with your primary care physician. There are occasionally non-emergent fi (more content not included)... Normal [facility] Comment on above: Result Comment: Elec malaally Signed By: Jayson Calloway DO\.zak\Date and Time Signed: 04/19/25 16:47 EDT ED Patient Summaryon 025 ED Patient Summary ED Patient Summary [address] [address] Patient Discharge Instructions Person Information Name: HARJIT ASENCIO I Age: 75 Years Arrival Date: 04/19/2025 09:40:51 Discharge Diagnosis: Abdominal pain, acute; Diarrhea Primary Care Physician: Hannah Brian MD Provider Information Primary Provider: Jayson Calloway DO Advanced Payloader Operator:None The exam and treatment you received in the Emergency Department were for an urgent problem and are not intended as complete care. It is important that you follow up with a doctor, nurse practitioner, or physician???s geriatric assistant for ongoing care. If your symptoms [...] Follow-up Instructions: With: Address: When: Ana Turner [address], [address] [place] [phone] [facility] () In 3 days 04/22/2025 Comments: Follow-up with GI for further evaluation With: Address: When: Hannah Brian [address] [place] [phone] [facility] (1) In 3 days 04/22/2025 Comments: Call [...] opioids can be used to help relieve pvuonvfr-qu-traxhp pain and are often prescribed following a [...] o Ta (more content not included)... Normal [facility] Extra Blueon 04-19-2025 Tube Collected Plasma Yes Invalid Interpretation Code [facility] Comment on above: Performed By: #### 1 [id number] #### [facility] [address] [place] [address] Hep Func Panelon 04-19-2025 Albumin [Mass/Vol] 4.4 g/dL Normal 3.3-5.0 [facility] Comment on above: Performed By: #### 2 350896 #### [facility] [address] [place] [address] Albumin/Globulin [Mass ratio] 1.6 {ratio} Normal 1.1-2.2 [facility] Comment on above: Performed By: #### 2 294204 #### [facility] [address] [place] [address] Alk Phos 59 Int._Unit/L Normal 21-98 [facility] Comment on above: Performed By: #### 2 564184 #### [facility] [address] [place] [address] ALT 25 Int._Unit/L Normal 6-46 [facility] Comment on above: Performed By: #### 2 270290 #### [facility] [address] [place] [address] AST 27 Int._Unit/L Normal 5-43 [facility] Comment on above: Performed By: #### 2 110135 #### [facility] [address] [place] [address] Bili Direct 0.1 mg/dL Normal 0.0-0.4 [facility] Comment on above: Performed By: #### 2 941977 #### [facility] [address] [place] [address] Bili Indirect 1.0 mg/dL High 0.1-0.9 [facility] Comment on above: Performed By: #### 2 312837 #### [facility] [address] [place] [address] Bili Total 1.1 mg/dL Normal 0.0-1.1 [facility] Comment on above: Performed By: #### 2 183714 #### [facility] [address] [place] [address] Globulin (S) [Mass/Vol] 2.7 g/dL Normal 1.4-4.0 [facility] Comment on above: Performed By: #### 2 354029 #### [facility] [address] [place] [address] Protein [Mass/Vol] 7.1 g/dL Normal 6.0-7.8 [facility] Comment on above: Performed By: #### 2 179653 #### [facility] [address] [place] [address] Lipase Levelon 04-19-2025 Lipase Lvl 23 unit/L Normal 13-58 [facility] Comment on above: Performed By: #### 2 244615 #### [facility] [address] [place] [address] UA with Cult Rflxon 04-19-20 25 Color (U) Light-Yellow Normal Yellow [facility] Comment on above: Result Comment: Micr oscopic readings are only performed on those samples that meet specific criteria set forth by [facility]. Performed By: #### 4 [id number] #### [facility] [address] [place] [address] Glucose (U) [Mass/Vol] Negative Normal Negative [facility] Comment on above: Performed By: #### 4 [id number] #### [facility] [address] [place] [address] Ketones Ql (U) Negative Normal Negative [facility] Comment on above: Performed By: #### 4 [id number] #### [facility] [address] [place] [address] UA Blood Negative Normal Negative [facility] Comment on above: Performed By: #### 4 [id number] #### [facility] [address] [place] [address] UA Clarity Clear Normal Clear [facility] Comment on above: Performed By: #### 4 [id number] #### [facility] [address] [place] [address] UA Leuk Est Negative Normal Negative [facility] Comment on above: Performed By: #### 4 [id number] #### [facility] [address] [place] [address] UA Nitrite Negative Normal Negative [facility] Comment on above: Performed By: #### 4 [id number] #### [facility] [address] [place] [address] UA pH 6.5 Invalid Interpretation Code 5.0-9.0 [facility] Comment on above: Performed By: #### 4 [id number] #### [facility] [address] [place] [address] UA Protein Negative Normal Negative [facility] Comment on above: Performed By: #### 4 [id number] #### [facility] [address] [place] [address] UA Spec Grav 1.005 Invalid Interpretation Code 1.005-1.030 [facility] Comment on above: Performed By: #### 4 [id number] #### [facility] [address] [place] [address] UA Urobilinogen Negative Normal Negative [facility] Comment on above: Performed By: #### 4 [id number] #### [facility] [address] [place] [address] Urobilinogen (U) [Mass/Vol] Negative Normal Negative [facility] Comment on above: Performed By: #### 4 [id number] #### [facility] [address] [place] [address] UA Spec Desc Clean Catch Normal [facility] Comment on above: Performed By: #### 4 [id number] #### [facility] [address] [place] [address] eGFRon 04-19-2025 eGFR 58 mL/min/1.73 m2 Low >=59 [facility] Comment on above: Performed By: #### 1 [id number] #### [facility] [address] [place] [address] JONASChuy 04-16-2025 ANES - Attestation signed by Gabe [...] 04/16/25 1200 Procedure: TRANSESOPHAGEAL ECHO (HAROON) Location: [facility] Clinical information reviewed: Allergies Meds Physical Exam Airway Mallampati: III Cardiovascular Rhythm: regular Dental Pulmonary Neurological Abdominal Anesthesia Plan ASA 3 other (Conscious sedation) intravenous induction Anesthetic plan and risks discussed with patient. Use of blood products discussed with patient who consented to blood products. Plan discussed with attending and fellow. Additional Equipment Requests Normal [facility] HPon 04-16-2025 HP - Attestation signed by Gabe Martinez MD [...] there are no changes to the H&P. [facility] NURSNOTEon 04-16-2025 NURSNOTE Bedside swallow stud [...] off of unit with all of belongings. [facility] Urinalysis macro (dipstick) panel (U)on 04-07-2025 Bilirubin, UA Negative Negative - 4(70) +++ mg/dL [facility] Blood, UA Negative Negative - 50 Pedro/mcL [facility] Clarity, UA Clear [facility] Color, UA Yellow [facility] Glucose, UA Negative Negative - 2000(110) ++++ mg/dL [facility] Ketones, UA Negative Negative - 160(16) ++++ mg/dL [facility] Leukocytes, UA Negative Negative - 500+++ Ghislaine/mcL [facility] Nitrite, UA Negative Negative - Positive [facility] pH, UA 6 5 - 9 [facility] Protein, UA Negative Negative - 2000(20) ++++ mg/dL [facility] Spec Grav, UA 1.005 1 - 1.03 [facility] Urobilinogen, UA 0.2 0.2 - 12 mg/dL [facility] 36on 04-02-2025 36 Patient called vik holliday [...] for tricuspid valve. Florecita and Leonardo from [facility] rehab made aware. 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 The plan was to add Jardiance. There is note of her to being evaluated by CT surgery Dr. Sorto regarding candidacy for cardiac surgery and she was deemed high risk. She was also evaluated at [facility] cardiothoracic surgery. Initial workup for her mitral valve disease was started. Spironolactone was changed to half tablet twice a day instead of 1 tablet once a day. She was also recommended to start taking digoxin at night instead of the morning. At visit with nc on 10/16/2023 I increased her carvedilol to [...] atrial fibrillation to include A-fib ablation. Dr. Patyt Yao decided to proceed with placement of [...] She has under (more content not included)... [facility] Office Visiton 03-31-2025 Follow-up visit [id number] Harjit Asencio I 1950 Provider Department Center 03/31/2025 RAFAEL PEDERSEN CECILE [facility] Family History Problem Relation Age of Onset Coronary artery disease Mother Diabetes Mother Coronary artery disease Father Family Status - Relation Status Age at Mother Father Sister Brother Alive Level of Service:54976 DE OFFICE/OUTPATIENT ESTABLISHED MOD MDM 30 MIN [facility] 36on 02-12-2025 36 Increased to 6.25mg BID [facility] 36on 02-11-2025 36 Patient called reported that she ran out of her carvedilol, discussed with patient to start on Coreg 6.25 mg bid, I also discussed this plan with her primary user experience team lead , patient will have to monitor her blood pressure at home. Yadiel Haines MD PGY-5 architect [facility] Telephoneon 02-11-2025 Telephone [phone] Harjit Asencio I 1950 Provider Department Center 02/11/2025 131YADIEL HUTCHISON [facility] [place] [facility] Family History Problem Relation Age of Onset Coronary artery disease Mother Diabetes Mother Coronary artery disease Father Family Status - Relation Status Age at Mother Father Sister Brother Alive [facility] Follow-Upon 02-10-2025 Follow-Up [id number] Harjit Asencio I 1950 F Date Provider Department Center 02/10/2025 MuluRAFAEL PRINGLE Family History Problem Relation Age of Onset Coronary artery disease Mother Diabetes Mother Coronary artery disease Father Family Status - Relation Status Age at Mother Father Sister Brother Alive Level of Service:73432 DE OFFICE/OUTPATIENT ESTABLISHED MOD MDM 30 MIN [facility] 3601-25-2025 36 Rafael, would it be ok for her to hold Eliquis for a few days with her recent MitraClip or does she need to continue and maybe reduce the dose? -Maybe we move forward with Watchman for her after you see her on 02/10? [facility] 36 Rafael, would it be ok for her to hold Eliquis for a few days with her recent MitraClip or does she need to continue and maybe reduce the dose? -Maybe we move forward with Watchman for her after you see her on 02/10? [facility] Follow-Upon 01-23-2025 Follow-Up [id number] Harjit Asencio Joseph 1950 Date Provider Department Center 01/23/2025 MARJ HOWELL CECILE Davies Family History Problem Relation Age of Onset Coronary artery disease Mother Diabetes Mother Coronary artery disease Father Family Status - Relation Status Age at Mother Father Sister Brother Alive Level of Service:57989 DE OFFICE/OUTPATIENT ESTABLISHED MOD MDM 30 MIN Reason for Visit and Comments: Valve Disorder [3372] Atrial Fibrillation [80] [facility] 01-15-2025 30 The patient is Moderately Unstable [...] and maintained or improved Outcome: Progressing Normal [facility] BASIC METABOLIC PANELon 06-0 Anion gap [Moles/Vol] 13 mmol/L Normal 7-20 [facility] Comment on above: Performed By: #### L AB15 #### [facility] [address] [place] [address] Calcium [Mass/Vol] 8.3 mg/dL Low 8.6-10.3 [facility] Comment on above: Performed By: #### L AB15 #### [facility] ([facility]) [address] [place] [address] Chloride [Moles/Vol] 106 mmol/L Normal 98-107 [facility] Comment on above: Performed By: #### L AB15 #### [facility] ([facility]) [address] [place] [address] CO2 [Moles/Vol] 19 mmol/L Low 21-31 [facility] Comment on above: Performed By: #### L AB15 #### [facility] ([facility]) [address] [place] [address] Creatinine [Mass/Vol] 0.84 mg/dL Normal 0.60-1.20 [facility] Comment on above: Performed By: #### L AB15 #### [facility] ([facility]) [address] [place] [address] GLOMERULAR FILTRATION RATE ML/MIN/1.73 SQ M.PREDICTED 72.0 mL/min/1.73m*2 Normal >60.0 [facility] Comment on above: Result Comment: [facility]???s estimated glomerular filtration rate (eGFR) [...] individuals. Performed By: #### L AB15 #### [facility] ([facility]) [address] [place] [address] Glucose [Mass/Vol] 123 mg/dL High 70-100 [facility] Comment on above: Performed By: #### L AB15 #### [facility] ([facility]) [address] [place] [address] Potassium [Moles/Vol] 4.7 mmol/L Normal 3.5-5.1 [facility] Comment on above: Performed By: #### L AB15 #### [facility] ([facility]) [address] [place] [address] Sodium [Moles/Vol] 133 mmol/L Low 136-145 [facility] Comment on above: Performed By: #### L AB15 #### [facility] ([facility]) [address] [place] [address] Urea nitrogen [Mass/Vol] 16 mg/dL Normal 7-25 [facility] Comment on above: Performed By: #### L AB15 #### [facility] ([facility]) [address] [place] [address] UREA NITROGEN/CREATININE (MASS RATIO) IN SER/PLAS 19.0 Normal [facility] Comment on above: Performed By: #### L AB15 #### [facility] ([facility]) [address] [place] [address] CBCon 01-15-2025 Erythrocyte distribution width (RBC) [Ratio] 13.4 % Normal 11.5-15.0 [facility] Comment on above: Performed By: #### L AB294 #### [facility] ([facility]) [address] [place] [address] ERYTHROCYTE MEAN CORPUSCULAR HEMOGLOBIN CONCENTRATION (G/DL) BY AUTOMATED 30.1 g/dL Low 32.0-35.0 [facility] Comment on above: Performed By: #### L [id number] #### [facility] ([facility]) [address] [place] [address] Hematocrit (Bld) [Volume fraction] 45.2 % High 36.0-45.0 [facility] Comment on above: Performed By: #### L [id number] #### [facility] ([facility]) [address] [place] [address] Hemoglobin (Bld) [Mass/Vol] 13.6 g/dL Normal 12.0-15.0 [facility] Comment on above: Performed By: #### L [id number] #### [facility] ([facility]) [address] [place] [address] MCH (RBC) [Entitic mass] 30.4 pg Normal 27.0-33.0 [facility] Comment on above: Performed By: #### L [id number] #### [facility] ([facility]) [address] [place] [address] MCV (RBC) [Entitic vol] 100.9 fL High 82.0-98.0 [facility] Comment on above: Performed By: #### L [id number] #### [facility] ([facility]) [address] [place] [address] PLATELETS (10*3/UL) IN BLOOD AUTOMATED COUNT 176 10*3/uL Normal 150-400 [facility] Comment on above: Performed By: #### L [id number] #### [facility] ([facility]) [address] [place] [address] RBC (Bld) [#/Vol] 4.48 10*6/uL Normal 3.80-5.00 [facility] Comment on above: Performed By: #### L [id number] #### [facility] ([facility]) [address] [place] [address] WBC (Bld) [#/Vol] 12.19 10*3/uL High 4.00-10.60 [facility] Comment on above: Performed By: #### L [id number] #### [facility] ([facility] [address] [place] [address] DSon 01-15-2025 DS Admission Admitted 01/14/2025 for [...] use. Cl (more content not included)... Normal [facility] 30on 01-14-2025 30 The patient [...] and behaviors that affect risk of falls [place] fall precautions as indicated by assessment Educate [...] and prevent overall improvement and discharge Normal [facility] 30 The patient is Moderately [...] and maintained or improved Outcome: Progressing Normal [facility] BASIC METABOLIC PANELon 06-0 Anion gap [Moles/Vol] 9 mmol/L Normal 7-20 [facility] Comment on above: Performed By: #### L [id number] #### [facility] ([facility]) [address] [place] [address] Calcium [Mass/Vol] 8.5 mg/dL Low 8.6-10.3 [facility] Comment on above: Performed By: #### L [id number] #### [facility] ([facility]) [address] [place] [address] Chloride [Moles/Vol] 107 mmol/L Normal 98-107 [facility] Comment on above: Performed By: #### L [id number] #### [facility] ([facility]) [address] [place] [address] CO2 [Moles/Vol] 26 mmol/L Normal 21-31 [facility] Comment on above: Performed By: #### L [id number] #### [facility] ([facility]) [address] [place] [address] Creatinine [Mass/Vol] 0.80 mg/dL Normal 0.60-1.20 [facility] Comment on above: Performed By: #### L [id number] #### [facility] ([facility]) [address] [place] [address] GLOMERULAR FILTRATION RATE ML/MIN/1.73 SQ M.PREDICTED 76.3 mL/min/1.73m*2 Normal >60.0 [facility] Comment on above: Result Comment: The [facility]???s estimated glomerular filtration rate (eGFR) [...] individuals. Performed By: #### L [id number] #### [facility] ([facility]) [address] [place] [address] Glucose [Mass/Vol] 97 mg/dL Normal 70-100 [facility] Comment on above: Performed By: #### L [id number] #### [facility] ([facility]) [address] [place] [address] Potassium [Moles/Vol] 3.9 mmol/L Normal 3.5-5.1 [facility] Comment on above: Performed By: #### L [id number] #### [facility] ([facility]) [address] [place] [address] Sodium [Moles/Vol] 138 mmol/L Normal 136-145 [facility] Comment on above: Performed By: #### L [id number] #### [facility] ([facility]) [address] [place] [address] Urea nitrogen [Mass/Vol] 11 mg/dL Normal 7-25 [facility] Comment on above: Performed By: #### L [id number] #### [facility] [address] [place] [address] UREA NITROGEN/CREATININE (MASS RATIO) IN SER/PLAS 13.8 Normal [facility] Comment on above: Performed By: #### L [id number] #### [facility] [address] [place] [address] CBC WITH AUTO DIFFERENTIALon 01-14-2025 Basophils (Bld) [#/Vol] 0.03 10*3/uL Normal 0.00-0.20 [facility] Comment on above: Performed By: #### L [id number] ####[facility] ([facility])[address] [place] [address] Basophils/100 WBC (Bld) 0.6 % Normal 0.0-1.0 [facility] Comment on above: Performed By: #### L [id number] ####[facility] ([facility])[address] [place] [address] Eosinophils (Bld) [#/Vol] 0.07 10*3/uL Normal 0.00-0.50 [facility] Comment on above: Performed By: #### L [id number] ####[facility] ([facility])[address] [place] [address] Eosinophils/100 WBC (Bld) 1.4 % Normal 0.0-6.0 [facility] Comment on above: Performed By: #### L [id number] ####[facility] ([facility])[address] [place] [address] Erythrocyte distribution width (RBC) [Ratio] 13.4 % Normal 11.5-15.0 [facility] Comment on above: Performed By: #### L [id number] ####[facility] [place] [address] ERYTHROCYTE MEAN CORPUSCULAR HEMOGLOBIN CONCENTRATION (G/DL) BY AUTOMATED 33.0 g/dL Normal 32.0-35.0 [facility] Comment on above: Performed By: #### L [id number] ####[facility] ([facility])[address] [place] [address] Hematocrit (Bld) [Volume fraction] 35.8 % Low 36.0-45.0 [facility] Comment on above: Performed By: #### L [id number] ####[facility] ([facility])[address] [place] [address] Hemoglobin (Bld) [Mass/Vol] 11.8 g/dL Low 12.0-15.0 [facility] Comment on above: Performed By: #### L [id number] ####[facility] ([facility])[address] [place] [address] Immature granulocytes (Bld) [#/Vol] 0.02 10*3/uL Normal 0.00-0.20 [facility] Comment on above: Performed By: #### L [id number] ####[facility] ([facility])[address] [place] [address] Immature granulocytes/100 WBC (Bld) 0.4 % Normal 0.0-1.0 [facility] Comment on above: Performed By: #### L [id number] ####[facility] ([facility])[address] [place] [address] Lymphocytes (Bld) [#/Vol] 1.34 10*3/uL Normal 1.20-4.00 [facility] Comment on above: Performed By: #### L [id number] ####[facility] ([facility])[address] [place] [address] Lymphocytes/100 WBC (Bld) 27.7 % Normal 20.0-45.0 [facility] Comment on above: Performed By: #### L [id number] ####[facility] ([facility])[address] [place] [address] MCH (RBC) [Entitic mass] 31.1 pg Normal 27.0-33.0 [facility] Comment on above: Performed By: #### L [id number] ####[facility] ([facility])[address] [place] [address] MCV (RBC) [Entitic vol] 94.2 fL Normal 82.0-98.0 [facility] Comment on above: Performed By: #### L [id number] ####[facility] ([facility])[address] [place] [address] Monocytes (Bld) [#/Vol] 0.40 10*3/uL Normal 0.10-1.00 [facility] Comment on above: Performed By: #### L [id number] ####[facility] ([facility])[address] [place] [address] Monocytes/100 WBC (Bld) 8.3 % Normal 5.0-12.0 [facility] Comment on above: Performed By: #### L [id number] ####[facility] ([facility])[address] [place] [address] Neutrophils (Bld) [#/Vol] 2.98 10*3/uL Normal 1.60-7.60 [facility] Comment on above: Performed By: #### L [id number] ####[facility] ([facility])[address] [place] [address] Neutrophils/100 WBC (Bld) 61.6 % Normal 40.0-72.0 [facility] Comment on above: Performed By: #### L [id number] ####[facility] ([facility])[address] [place] [address] NRBC (PER 100 WBCS) BY AUTOMATED COUNT 0.0 % Normal 0 [facility] Comment on above: Performed By: #### L [id number] ####[facility] ([facility])[address] [place] [address] PLATELETS (10*3/UL) IN BLOOD AUTOMATED COUNT 178 10*3/uL Normal 150-400 [facility] Comment on above: Performed By: #### L [id number] ####[facility] ([facility])[address] [place] [address] RBC (Bld) [#/Vol] 3.80 10*6/uL Normal 3.80-5.00 [facility] Comment on above: Performed By: #### L [id number] ####[facility] ([facility])[address] [place] [address] WBC (Bld) [#/Vol] 4.84 10*3/uL Normal 4.00-10.60 [facility] Comment on above: Performed By: #### L [id number] ####[facility] ([facility])[address] [place] [address] HPon 01-14-2025 HP H&P reviewed. The patient was examined and there are no changes to the H&P. Normal [facility] POCT GLUCOSE METER UNSOLICIT ED RESULTSon 01-14-2025 Glucose [Mass/Vol] 92 mg/dL Normal 70-105 [facility] Comment on above: Order Comment: Waive d Testing in the ED is performed under the ED CLIA certificate #[id number]. Result Comment: femi [email or web address] Performed By: #### L [id number] #### [facility] ([facility]) [address] [place] [address] PROTIME-INRon 01-14-2025 INR IN PPP BY COAGULATION ASSAY 1.08 Normal 0.90-1.10 [facility] Comment on above: [...] RANGE. CHEST 1995;108:[id number]. Performed By: #### L [id number] #### [facility] [address] [place] [address] [facility] PROTHROMBIN TIME (PT) IN PPP BY COAGULATION ASSAY 14.0 Seconds Normal 12.3-14.8 [facility] Comment on above: Performed By: #### L [id number] #### [facility] [address] [place] [address] [place] TYPE AND SCREENon 01-14-2025 AB SCREEN Negative Normal [facility] Comment on above: Performed By: #### L [id number] #### [facility] [address] [place] [address] [facility] ABO group Nom (Bld) O Normal [facility] Comment on above: Performed By: #### L [id number] #### [facility] [address] [place] [address] [facility] RH TYPE IN BLOOD Positive Normal [facility] Comment on above: Performed By: #### L [id number] #### [facility] [address] [place] [address] [facility] Orders Onlyon 01-13-2025 Orders Only [id number] Elif,Harjit I 1950 F Date Provider Department Center 01/13/2025 [id number] COLE [facility] Family History Problem Relation Age of Onset Coronary artery disease Mother Diabetes Mother Coronary artery disease Father Family Status - Relation Status Age at Mother Father Sister Brother Alive Normal [facility] Orders Onlyon 01-09-2025 Orders Only [id number] Elif,Harjit I 1950 F Date Provider Department Center 01/09/2025 BIANCA MIGUEL Family History Problem Relation Age of Onset Coronary artery disease Mother Diabetes Mother Coronary artery disease Father Family Status - Relation Status Age at Mother Father Sister Brother Alive Normal [facility] Orders Onlyon 01-08-2025 Orders Only [id number] Elif,Harjit I 1950 F Date Provider Department Center 01/08/2025 RADHA CHAVEZ [facility] [place] [facility] Family History Problem Relation Age of Onset Coronary artery disease Mother Diabetes Mother Coronary artery disease Father Family Status - Relation Status Age at Mother Father Sister Brother Alive [facility] Documentationon 12-25-2024 Documentation [id number] Harjit Asencio I 1950 F Date Provider Department Center 12/25/2024 325-GABE MARTINEZ [facility] [place] [facility] Family History Problem Relation Age of Onset Coronary artery disease Mother Diabetes Mother Coronary artery disease Father Family Status - Relation Status Age at Mother Father Sister Brother Alive [facility] Telephoneon 12-24-2024 Telephone [id number] Harjit Asencio I 1950 F Date Provider Department Center 12/24/2024 Martha-BIANCA GEORGE [facility] Family History Problem Relation Age of Onset Coronary artery disease Mother Diabetes Mother Coronary artery disease Father Family Status - Relation Status Age at Mother Father Sister Brother Alive [facility] HPon 12-23-2024 [facility] Cardiology [facility] Subjective Harjit Asencio [...] Urinary frequency 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 The plan was to add Jardiance. There is note of her to being evaluated by CT surgery Dr. Sorto regarding candidacy for cardiac surgery and she was deemed high risk. She was also evaluated at [facility] cardiothoracic surgery. Initial workup for her mitral valve disease was started. Spironolactone was changed to half tablet twice a day instead of 1 tablet once a day. She was also recommended to start taking digoxin at night instead of the morning. At visit with nc on 10/16/2023 I increased her carvedilol to 6.25 mg twice daily. I asked for a cardiopulmonary excise test. After visit with nc on 10/30/2023 I added Jardiance 10 mg daily to optimize GDMT for systolic heart failure. I also started her on amiodarone to attempt rhythm control. Following that she stopped both medications due to side effects. After visit with nc on 12/01/2023 I referred her to [facility] [...] are negativ (more content not included)... Normal [facility] Office Visiton 12-23-2024 Follow-up visit [id number] Harjit Asencio I 1950 F Date Provider Department Center 12/23/2024 RAFAEL PEDERSEN CECILE Quinones [facility] Family History Problem Relation Age of Onset Coronary artery disease Mother Diabetes Mother Coronary artery disease Father Family Status - Relation Status Age at Mother Father Sister Brother Alive Level of Service:39018 DE OFFICE/OUTPATIENT ESTABLISHED HIGH MDM 40 MIN Normal [facility] Urinalysis macro (dipstick) panel (U)on 12-17-2024 Bilirubin, UA Negative Negative - 4(70) +++ mg/dL [facility] Blood, UA Positive Negative - 50 Pedro/mcL [facility] Clarity, UA Clear [facility] Color, UA Yellow [facility] Glucose, UA Negative Negative - 1999(110) ++++ mg/dL [facility] Interpretation and review of laboratory results Abnormal [facility] Ketones, UA Negative Negative - 160(16) ++++ mg/dL [facility] Leukocytes, UA Negative Negative - 500+++ Ghislaine/mcL [facility] Nitrite, UA Negative Negative - Positive [facility] pH, UA 6 5 - 9 [facility] Protein, UA Negative Negative - 1999(20) ++++ mg/dL [facility] Spec Grav, UA 1.005 1 - 1.03 [facility] Urobilinogen, UA 0.2 0.2 - 12 mg/dL [facility] ANESon 11-29-2024 ANES - Attestation signed by [...] 11/29/24 0900 Procedure: TRANSESOPHAGEAL ECHO (HAROON) Location: [facility] Vascular Lab Clinical information reviewed: Allergies Meds OB Status Physical Exam Airway Mallampati: III Cardiovascular Dental Pulmonary Abdominal Anesthesia Plan ASA 3 other (Conscious sedation) intravenous induction Anesthetic plan and risks discussed with patient. Use of blood products discussed with patient who consented to blood products. Plan discussed with attending and fellow. Additional Equipment Requests Normal [facility] BASIC METABOLIC PANELon 11-12 Anion gap [Moles/Vol] 9 mmol/L Normal 7-20 [facility] Comment on above: Performed By: #### L [id number] #### [facility] ([facility]) [address] [place] [address] Calcium [Mass/Vol] 9.1 mg/dL Normal 8.6-10.3 [facility] Comment on above: Performed By: #### L [id number] #### [facility] ([facility]) [address] [place] [address] Chloride [Moles/Vol] 102 mmol/L Normal 98-107 [facility] Comment on above: Performed By: #### L [id number] #### [facility] ([facility]) [address] [place] [address] CO2 [Moles/Vol] 32 mmol/L High 21-31 [facility] Comment on above: Performed By: #### L [id number] #### [facility] ([facility]) [address] [place] [address] Creatinine [Mass/Vol] 0.85 mg/dL Normal 0.60-1.20 [facility] Comment on above: Performed By: #### L [id number] #### [facility] ([facility]) [address] [place] [address] GLOMERULAR FILTRATION RATE ML/MIN/1.73 SQ M.PREDICTED 71.0 mL/min/1.73m*2 Normal >60.0 [facility] Comment on above: Result Comment: [facility]???s estimated glomerular filtration rate (eGFR) [...] individuals. Performed By: #### L [id number] #### [facility] ([facility]) [address] [place] [address] Glucose [Mass/Vol] 96 mg/dL Normal 70-100 [facility] Comment on above: Performed By: #### L [id number] #### [facility] ([facility]) [address] [place] [address] Potassium [Moles/Vol] 4.9 mmol/L Normal 3.5-5.1 [facility] Comment on above: Performed By: #### L [id number] #### [facility] ([facility]) [address] [place] [address] Sodium [Moles/Vol] 138 mmol/L Normal 136-145 [facility] Comment on above: Performed By: #### L [id number] #### [facility] ([facility]) [address] [place] [address] Urea nitrogen [Mass/Vol] 14 mg/dL Normal 7-25 [facility] Comment on above: Performed By: #### L [id number] #### [facility] [address] [place] [address] UREA NITROGEN/CREATININE (MASS RATIO) IN SER/PLAS 16.5 Normal [facility] Comment on above: Performed By: #### L [id number] #### [facility] ([facility]) [address] [place] [address] CBCon 11-29-2024 Erythrocyte distribution width (RBC) [Ratio] 13.3 % Normal 11.5-15.0 [facility] Comment on above: Performed By: #### L [id number] ####[facility] [place] [address] ERYTHROCYTE MEAN CORPUSCULAR HEMOGLOBIN CONCENTRATION (G/DL) BY AUTOMATED 32.1 g/dL Normal 32.0-35.0 [facility] Comment on above: Performed By: #### L [id number] ####[facility] [place] [address] Hematocrit (Bld) [Volume fraction] 41.8 % Normal 36.0-45.0 [facility] Comment on above: Performed By: #### L [id number] ####[facility] ([facility])[address] [place] [address] Hemoglobin (Bld) [Mass/Vol] 13.4 g/dL Normal 12.0-15.0 [facility] Comment on above: Performed By: #### L [id number] ####[facility] ([facility])[address] [place] [address] MCH (RBC) [Entitic mass] 30.0 pg Normal 27.0-33.0 [facility] Comment on above: Performed By: #### L [id number] ####[facility] ([facility])[address] [place] [address] MCV (RBC) [Entitic vol] 93.7 fL Normal 82.0-98.0 [facility] Comment on above: Performed By: #### Phillip [id number] ####[facility] ([facility])[address] [place] [address] PLATELETS (10*3/UL) IN BLOOD AUTOMATED COUNT 264 10*3/uL Normal 150-400 [facility] Comment on above: Performed By: #### L [id number] ####[facility] ([facility])[address] [place] [address] RBC (Bld) [#/Vol] 4.46 10*6/uL Normal 3.80-5.00 [facility] Comment on above: Performed By: #### L [id number] ####[facility] ([facility])[address] [place] [address] WBC (Bld) [#/Vol] 9.08 10*3/uL Normal 4.00-10.60 [facility] Comment on above: Performed By: #### L [id number] ####[facility] ([facility])[address] [place] [address] HPon 11-29-2024 - Attestation signed by Gabe Martinez [...] log. Intraprocedural f (more content not included)... [facility] NURSNOTEon 11-29-2024 NURSNOTE Bedside swallow stud y completed and passed. [facility] NURSNOTE RN educated pt on d/ [...] off of unit with all of belongings. [facility] Telephoneon 11-22-2024 Telephone [phone] Harjit Asencio I 1950 F Date Provider Department Center 11/22/2024 YAEL BRADFORD [facility] [place] [facility] Family History Problem Relation Age of Onset Coronary artery disease Mother Diabetes Mother Coronary artery disease Father Family Status - Relation Status Age at Mother Father [facility] Bacteria identified Cx Nom ( U)on 11-21-2024 Appearance (U) Adequate [facility] Internal identifier for Provider [id number] [facility] Specimen source Nom (Unsp spec) URINE, CLEAN CATCH [facility] STATUS FINAL [facility] Performing Organization Information Site ID: QPT Name: [employer] [facility] Address: [address] [place] [id number] Director: Ab Vincent MD [facility] CULTURE, URINE, ROUTINEon CULTURE, URINE, ROUTINE SEE NOTE Normal [facility] Comment on above: Result Comment: CULTURE, URINE, ROUTINE Micro Number: [id number] Test Status: Final Specimen Source: Urine, clean catch Specimen Quality: Adequate Result: No Growth Performed By: #### 3 95 #### [facility] [address] [place] [address] [employer]: Ab Vincent MD Urine cultureon 11-21-2024 Bacteria identified Cx Nom (U) SEE NOTE [facility] Comment on above: No Growth Urinalysis macro (dipstick) panel (U)on 11-18-2024 Bilirubin, UA Negative Negative - 4(70) +++ mg/dL [facility] Blood, UA Positive Negative - 50 Perdo/mcL [facility] Clarity, UA Clear [facility] Color, UA Yellow [facility] Glucose, UA Negative Negative - 1999(110) ++++ mg/dL [facility] Interpretation and review of laboratory results Abnormal [facility] Ketones, UA Negative Negative - 160(16) ++++ mg/dL [facility] Leukocytes, UA Trace Negative - 500+++ Ghislaine/mcL [facility] Nitrite, UA Negative Negative - Positive [facility] pH, UA 6.5 5 - 9 [facility] Protein, UA Negative Negative - 1999(20) ++++ mg/dL [facility] Spec Grav, UA 1.01 1 - 1.03 [facility] Urobilinogen, UA 0.2 0.2 - 12 mg/dL [facility] [facility] Office Visiton 10-22-2024 Follow-up visit [id number] Harjit Asencio I 1950 F Date Provider Department Center 10/22/2024 PATTY DIANE CECILE [facility] Family History Problem Relation Age of Onset Coronary artery disease Mother Diabetes Mother Coronary artery disease Father Family Status - Relation Status Age at Mother Father Level of Service:72795 DE OFFICE/OUTPATIENT ESTABLISHED LOW MDM 20 MIN Normal [facility] Urinalysis macro (dipstick) panel (U)on 08-12-2024 Bilirubin, UA Negative Negative - 4(70) +++ mg/dL [facility] Healthcare Blood, UA Positive Negative - 50 Pedro/mcL [facility] Clarity, UA Clear [facility] Color, UA Yellow [facility] Glucose, UA Negative Negative - 1999(110) ++++ mg/dL [facility] Interpretation and review of laboratory results Abnormal [facility] Ketones, UA Negative Negative - 160(16) ++++ mg/dL [facility] Leukocytes, UA Negative Negative - 500+++ Ghislaine/mcL [facility] Nitrite, UA Negative Negative - Positive [facility] pH, UA 6 5 - 9 [facility] Protein, UA Negative Negative - 2000(20) ++++ mg/dL [facility] Spec Grav, UA 1.005 1 - 1.03 [facility] Urobilinogen, UA 0.2 0.2 - 12 mg/dL [facility] COMPREHENSIVE METABOLIC PANE [place] 07-04-2024 Albumin [Mass/Vol] 4.2 g/dL Normal 3.6-5.1 [facility] Comment on above: Order Comment: FASTI NG:NO FASTING: NO Performed By: #### 1 0231 #### [facility] [place] [address] [employer]: Ab Vincent MD Albumin/Globulin [Mass ratio] 1.8 {ratio} Normal 1.0-2.5 [facility] Comment on above: Order Comment: FASTI NG:NO FASTING: NO Performed By: #### 1 0231 #### [facility] [place] [address] [employer] Inspector [employer]: Ab Vincent MD ALP [Catalytic activity/Vol] 75 U/L Normal 37-153 [facility] Comment on above: Order Comment: FASTI NG:NO FASTING: NO Performed By: #### 1 0231 #### [facility] [place] [address] [employer] Inspector [employer]: Ab Vincent MD ALT [Catalytic activity/Vol] 27 U/L Normal 6-29 [facility] Comment on above: Order Comment: FASTI NG:NO FASTING: NO Performed By: #### 1 0231 #### [facility] [place] [address] [employer] Inspector [employer]: Ab Vincent MD AST [Catalytic activity/Vol] 27 U/L Normal 10-35 [facility] Comment on above: Order Comment: FASTI NG:NO FASTING: NO Performed By: #### 1 0231 #### [facility] [address], [address] [place] [address] Mine Inspector [employer]: Ab Vincent MD Bilirubin [Mass/Vol] 0.6 mg/dL Normal 0.2-1.2 [facility] Comment on above: Order Comment: FASTI NG:NO FASTING: NO Performed By: #### 1 0231 #### [facility] [place] [address] [employer] Inspector Federal: Ab Vincent MD BUN/CREATININE RATIO SEE NOTE: Normal 6-22 [facility] Comment on above: Order Comment: FASTI NG:NO FASTING: NO Result Comment: Not Reported: BUN and Creatinine are within reference range. Performed By: #### 1 0231 #### [facility] [place] [address] [employer] Inspector [employer]: Ab Vincent MD Calcium [Mass/Vol] 9.2 mg/dL Normal 8.6-10.4 [facility] Comment on above: Order Comment: FASTI NG:NO FASTING: NO Performed By: #### 1 0231 #### [facility] [place] [address] [employer] Inspector [employer]: Ab Vincent MD Chloride [Moles/Vol] 104 mmol/L Normal 98-110 [facility] Comment on above: Order Comment: FASTI NG:NO FASTING: NO Performed By: #### 1 0231 #### [facility] [place] [address] [employer] Inspector Federal: Ab Vincent MD CO2 [Moles/Vol] 27 mmol/L Normal 20-32 [facility] Comment on above: Order Comment: FASTI NG:NO FASTING: NO Performed By: #### 1 0231 #### [facility] [place] [address] [employer] Inspector Federal: Ab Vincent MD Creatinine [Mass/Vol] 0.87 mg/dL Normal 0.60-1.[address] [facility] Comment on above: Order Comment: FASTI NG:NO FASTING: NO Performed By: #### 1 0231 #### [facility] [place] [address] [employer] Inspector Federal: Ab Vincent MD GFR/1.73 sq M.predicted among non-blacks MDRD (S/P/Bld) [Vol rate/Area] 69 mL/min/{1.73_m2} Normal > OR = 60 [facility] Comment on above: Order Comment: FASTI NG:NO FASTING: NO Performed By: #### 1 0231 #### [facility] [place] [address] [employer] Inspector Federal: Ab Vincent MD Globulin (S) [Mass/Vol] 2.3 g/dL Normal 1.9-3.7 [facility] Comment on above: Order Comment: FASTI NG:NO FASTING: NO Performed By: #### 1 0231 #### [facility] [place] [address] [employer] Inspector [employer]: Ab Vincent MD Glucose [Mass/Vol] 94 mg/dL Normal 65-139 [facility] Comment on above: Order Comment: FASTI NG:NO FASTING: NO Result Comment: Non-fasting reference interval Performed By: #### 1 0231 #### [facility] [place] [address] [employer] Inspector Federal: Ab Vincent MD Potassium [Moles/Vol] 4.6 mmol/L Normal 3.5-5.3 [facility] Comment on above: Order Comment: FASTI NG:NO FASTING: NO Performed By: #### 1 0231 #### [facility] [place] [address] Mine Inspector Federal: Ab Vincent MD Protein [Mass/Vol] 6.5 g/dL Normal 6.1-8.1 [facility] Comment on above: Order Comment: FASTI NG:NO FASTING: NO Performed By: #### 1 0231 #### [facility] [place] [address] Mine Inspector Federal: Ab Vincent MD Sodium [Moles/Vol] 139 mmol/L Normal 135-146 [facility] Comment on above: Order Comment: FASTI NG:NO FASTING: NO Performed By: #### 1 0231 #### [facility] [address], [address] [place] [address] Mine Inspector [employer]: Ab Vincent MD Urea nitrogen [Mass/Vol] 12 mg/dL Normal 7-25 [facility] Comment on above: Order Comment: FASTI NG:NO FASTING: NO Performed By: #### 1 0231 #### [facility] [address], [address] [place] [address] Mine Inspector [employer]: Ab Vincent MD CULTURE, URINE, ROUTINEon CULTURE, URINE, ROUTINE SEE NOTE Normal [facility] Comment on above: Order Comment: FASTI NG:UNKNOWN FASTING: UNKNOWN Result Comment: CULTURE, URINE, ROUTINE Micro Number: [id number] Test Status: Final Specimen Source: Urine Specimen Quality: Adequate Result: No Growth Performed By: #### 3 95 #### [facility] [address], [address] [place] [address] Mine Inspector Federal: Ab Vincent MD 37on 07-02-2024 37 *You can take famotidine (Pepcid) 10mg daily as needed for heartburn/acid reflux. If you are still having symptoms, you can take tums or rolaids as needed. -Let cardiology know if chest pain persists Normal [facility] Office Visiton 07-02-2024 Follow-up visit [id number] Harjit Asencio I 1950 F Date Provider Department Center 07/02/2024 Kalyani-MARJ [facility] Family History Problem Relation Age of Onset Coronary artery disease Mother Diabetes Mother Coronary artery disease Father Family Status - Relation Status Age at Mother Father Level of Service:15218 DE OFFICE/OUTPATIENT ESTABLISHED MOD MDM 30 MIN Reason for Visit and Comments: Atrial Fibrillation [80] Palpitations [416766] Congestive Heart Failure [127] Valve Disorder [3372] Normal [facility] Urinalysis macro (dipstick) panel (U)on 11-18-2024 Bilirubin, UA Negative Negative - 4(70) +++ mg/dL [facility] Blood, UA Negative Negative - 50 Pedro/mcL [facility] Clarity, UA Clear [facility] Color, UA Light Yellow [facility] Glucose, UA Negative Negative - 2000(110) ++++ mg/dL [facility] Interpretation and review of laboratory results Normal [facility] Ketones, UA Negative Negative - 160(16) ++++ mg/dL [facility] Leukocytes, UA Negative Negative - 500+++ Ghislaine/mcL [facility] Nitrite, UA Negative Negative - Positive [facility] pH, UA 6 5 - 9 [facility] Protein, UA Negative Negative - 1999(20) ++++ mg/dL [facility] Spec Grav, UA 1.01 1 - 1.03 [facility] Urobilinogen, UA 0.2 0.2 - 12 mg/dL [facility] CNOVon 06-27-2024 CNOV Normal [facility] HPon 06-10-2024 [place] [facility] Consult [place] [facility] - [facility] Reason for visit: Afib+ CMP 06/10/24 [...] MR and subsequently had a visit with [facility] where evaluation was being done for surgical correction of mitral valve but was noted to have high risk and hence deferred. She also had an evaluation for the same at [place] surgery and thereafter had seen in [...] on file Intimate Partner Violence: Unknown (10/05/2023) [place] Safety & Environment Fear of Current or [...] clear, no (more content not included)... Normal [facility] Orders Onlyon 06-05-2024 Orders Only [id number] Harjit Asencio I 1950 F Date Provider Department Center 06/05/2024 PATTY DIANE [facility] [place] [facility] Family History Problem Relation Age of Onset Coronary artery disease Mother Diabetes Mother Coronary artery disease Father Family Status - Relation Status Age at Mother Father Normal [facility] BMPon 06-03-2024 Anion gap [Moles/Vol] 9 mmol/L Normal 6-16 [facility] Comment on above: Performed By: #### 2 [id number] #### [facility] [address] [place] [address] Calcium [Mass/Vol] 9.1 mg/dL Normal 8.9-11.1 [facility] Comment on above: Performed By: #### 2 [id number] #### [facility] [address] [place] [address] Chloride [Moles/Vol] 103 mmol/L Normal 101-111 [facility] Comment on above: Performed By: #### 2 553905 #### [facility] [address] [place] [address] CO2 [Moles/Vol] 29 mmol/L Normal 21-31 [facility] Comment on above: Performed By: #### 2 446577 #### [facility] [address] [place] [address] Creatinine [Mass/Vol] 0.8 mg/dL Normal 0.5-1.3 [facility] Comment on above: Performed By: #### 2 140444 #### [facility] [address] [place] [address] Glucose [Mass/Vol] 89 mg/dL Normal 55-199 [facility] Comment on above: Performed By: #### 2 [id number] #### [facility] [address] [place] [address] Potassium [Moles/Vol] 4.3 mmol/L Normal 3.5-5.3 [facility] Comment on above: Performed By: #### 2 188866 #### [facility] [address] [place] [address] Sodium [Moles/Vol] 137 mmol/L Normal 135-145 [facility] Comment on above: Performed By: #### 2 [id number] #### [facility] [address] [place] [address] Urea nitrogen [Mass/Vol] 12 mg/dL Normal 5-21 [facility] Comment on above: Performed By: #### 2 [id number] #### [facility] [address] [place] [address] Urea nitrogen/Creatinine [Mass ratio] 15 No Units Normal 10-20 [facility] Comment on above: Performed By: #### 2 405753 #### [facility] [address] [place] [address] CBC w/Indiceson 06-03-2024 Erythrocyte distribution width (RBC) [Ratio] 14.0 % Normal 10.9-14.2 [facility] Comment on above: Performed By: #### 2 119647 #### [facility] [address] [place] [address] Hematocrit (Bld) [Volume fraction] 40.6 % Normal 34.0-46.0 [facility] Comment on above: Performed By: #### 2 110956 #### [facility] [address] [place] [address] Hemoglobin (Bld) [Mass/Vol] 13.7 g/dL Normal 12.0-16.0 [facility] Comment on above: Performed By: #### 2 832671 #### [facility] [address] [place] [address] MCH (RBC) [Entitic mass] 31.0 pg Normal 27.0-34.0 [facility] Comment on above: Performed By: #### 2 650041 #### [facility] [address] [place] [address] MCHC (RBC) [Mass/Vol] 33.6 g/dL Normal 31.4-36.0 [facility] Comment on above: Performed By: #### 2 462362 #### [facility] [address] [place] [address] MCV (RBC) [Entitic vol] 92.2 fL Normal 80.0-100.0 [facility] Comment on above: Performed By: #### 2 793012 #### [facility] [address] [place] [address] Platelet mean volume (Bld) [Entitic vol] 8.3 fL Normal 6.4-10.8 [facility] Comment on above: Performed By: #### 2 824177 #### [facility] [address] [place] [address] Platelets (Bld) [#/Vol] 198.0 E9/L Normal 150.0-500.0 [facility] Comment on above: Performed By: #### 2 893242 #### [facility] [address] [place] [address] RBC (Bld) [#/Vol] 4.4 E12/L Normal 4.3-5.9 [facility] Comment on above: Performed By: #### 2 194989 #### [facility] [address] [place] [address] RBC size Nom (Bld) NORMAL Invalid Interpretation Code [facility] Comment on above: Performed By: #### 2 619605 #### [facility] [address] [place] [address] WBC corrected for nucl RBC Auto (Bld) [#/Vol] 7.0 E9/L Normal 4.0-11.0 [facility] Comment on above: Performed By: #### 2 257280 #### [facility] [address] [place] [address] CHEMISTRYOrdered By: SYSTEM SYSTEM on 06-03-2024 Anion [...] Remisol Heme Orders Onlyon 06-03-2024 Orders Only [id number] Harjit Asencio I 1950 F Date Provider Department Center 06/03/2024 YAEL BRADFORD [facility] VASC LAB [place] [facility] Family History Problem Relation Age of Onset Coronary artery disease Mother Diabetes Mother Coronary artery disease Father Family Status - Relation Status Age at Mother Father Normal [facility] eGFRon 06-03-2024 eGFR 76 mL/min/1.73 m2 Normal >=59 [facility] Comment on above: Performed By: #### 1 [id number] #### [facility] [address] [place] [address] CNOVon 05-07-2024 CNOV Normal [facility] CNPTOUTREACHon 05-07-2024 CNPTOUTREACH Normal [facility] URINALYSIS, REFLEX MICROSCOP ICon 05-07-2024 Bilirubin Ql (U) Negative Negative [facility] Clarity (Unsp spec) Clear Clear [facility] Color (U) Yellow Yellow [facility] Glucose Test strip (U) [Mass/Vol] Negative Negative [facility] Hemoglobin Ql (U) Negative Negative [facility] Interpretation and review of laboratory results Normal [facility] Ketones Ql (U) Negative Negative [facility] Leukocyte esterase Test strip Ql (U) Negative Negative [facility] Nitrite Ql (U) Negative Negative [facility] pH (U) 6.0 [pH] NINF - 8.5 [facility] Protein (U) [Mass/Vol] Negative Negative [facility] Specific gravity (U) [Rel density] 1.007 1.005 - 1.030 [facility] Urobilinogen Ql (U) 0.2 EU/dL 0.2-1.0 EU/dL [facility] Bilirubin Ql (U) Negative Normal Negative [facility] Comment on above: Order Comment: Speci men Type: URINE SPECIMENOrdering Facility: [facility] Address: [address] [place] [address] Performed By: #### L [id number] ####[facility] [id number] [place] [address] [place] Clarity (Unsp spec) Clear Normal Clear [facility] Comment on above: Order Comment: Speci men Type: URINE SPECIMENOrdering Facility: [facility] Address: [address] [place] [address] Performed By: #### L [id number] ####[facility] LABCL[facility] [id number] [place] [address] [place] Color (U) Yellow Normal Yellow [facility] Comment on above: Order Comment: Speci men Type: URINE SPECIMENOrdering Facility: [facility] Address: [address] [place] [address] Performed By: #### L [id number] ####[facility] [id number] [place] [address] [place] Glucose Test strip (U) [Mass/Vol] Negative Normal Negative [facility] Comment on above: Order Comment: Speci men Type: URINE SPECIMENOrdering Facility: [facility] Address: [address] [place], [place] [id number] Performed By: #### L [id number] ####[facility] LABCL[facility] [id number] [place] [address] [place] Hemoglobin Ql (U) Negative Normal Negative [facility] Comment on above: Order Comment: Speci men Type: URINE SPECIMENOrdering Facility: [facility] Address: [address] [place] [address] Performed By: #### L [id number] ####[facility] LABCL[facility] [id number] [place] [address] [place] Ketones Ql (U) Negative Normal Negative [facility] Comment on above: Order Comment: Speci men Type: URINE SPECIMENOrdering Facility: [facility] Address: [address] [place], [place] [address] Performed By: #### L [id number] ####[facility] [id number] [place] [address] [place] Leukocyte esterase Test strip Ql (U) Negative Normal Negative [facility] Comment on above: Order Comment: Speci men Type: URINE SPECIMENOrdering Facility: [facility] Address: [address] [place] [address] Performed By: #### L [id number] ####[facility]CL[facility] [id number] [place] [address] [place] Nitrite Ql (U) Negative Normal Negative [facility] Comment on above: Order Comment: Speci men Type: URINE SPECIMENOrdering Facility: [facility] Address: [address] [place], [place] [address] Performed By: #### L [id number] ####[facility]CL[facility] [id number] [place] [address] [place] pH (U) 6.0 [pH] Normal <8.5 [facility] Comment on above: Order Comment: Speci men Type: URINE SPECIMENOrdering Facility: [facility] Address: [address] [place] [address] Performed By: #### L [id number] ####[facility] [id number] [place] [address] [place] Protein (U) [Mass/Vol] Negative Normal Negative [facility] Comment on above: Order Comment: Speci men Type: URINE SPECIMENOrdering Facility: [facility] Address: [address] [place] [address] Performed By: #### L [id number] ####[facility] [id number] [place] [address] [place] Specific gravity (U) [Rel density] 1.007 Normal 1.005-1.030 [facility] Comment on above: Order Comment: Speci men Type: URINE SPECIMENOrdering Facility: [facility] Address: [address] [place] [address] Performed By: #### L [id number] ####[facility] [id number] [place] [address] [place] Urobilinogen Ql (U) 0.2 EU/dL Normal 0.2-1.0 EU/dL [facility] Comment on above: Order Comment: Speci men Type: URINE SPECIMENOrdering Facility: [facility] Address: [address] [place] [address] Performed By: #### L [id number] ####[facility] [id number] [place] [address] [place] C Urineon 11-24-2023 Bacteria identified Cx Nom [...] Locations R1: This test was performed at: [facility], [address] [place] [address], [address] , , [facility] Comment on above: Performed By: #### 2 [id number], [id number], [id number], [id number], [id number], [id number] #### [facility] [address] [place] [address] BB Draw & Holdon 11-23-2023 BB D&H Sample drawn for Blood Ba [facility] Comment on above: Performed By: #### 1 [id number] #### [facility] [address] [place] [address] Abdomen/Pelvis w/ Contras ton 11-23-2023 CT [...] Oral contrast amount in ml's: 0 Normal [facility] ED Note-Physicianon 11-23-19 ED Note-Physician Basic [...] imaging. No significant abnormalities. Patient is very dswm-spw-xurfm with her symptoms and now states to [...] day(s), # 100 mL, Refills(s) 0, Pharmacy: [facility], 165, cm, 11/22/23 16:28:00 EDT, Height/Length [...] days 11/25/[address] [place] [address]- Additional Instructions: Patient Education Constipation, Adult, Pqzv-tp-[id number] Attestation I performed a substantive part of [...] EC T (more content not included)... Normal [facility] Comment on above: Result Comment: Elec tronically Signed By: Edel Zhou PA-C\.br\Date and Time Signed: 11/22/23 20:45 EDT\.br\Electronically Co-Signed By: Jayson Calloway DO\.br\Date and Time Co-Signed: 11/23/23 07:15 EDT CBC w/ Auto Diffon 4 Basophils/100 WBC (Bld) 1.1 % Normal 0.0-2.0 [facility] Comment on above: Performed By: #### 1 [id number] #### [facility] [address] [place] [address] Basophils/Leukocytes Auto (Bld) [Pure # fraction] 0.1 E9/L Normal 0.0-0.2 [facility] Comment on above: Performed By: #### 1 [id number] #### [facility] [address] [place] [address] Eosinophils (Bld) [#/Vol] 0.0 E9/L Normal 0.0-0.5 [facility] Comment on above: Performed By: #### 1 [id number] #### [facility] [address] [place] [address] Eosinophils/100 WBC (Bld) 0.2 % Normal 0.0-8.0 [facility] Comment on above: Performed By: #### 1 [id number] #### [facility] [address] [place] [address] Erythrocyte distribution width (RBC) [Ratio] 14.7 % High 10.9-14.2 [facility] Comment on above: Performed By: #### 1 [id number] #### [facility] [address] [place] [address] Hematocrit (Bld) [Volume fraction] 42.0 % Normal 34.0-46.0 [facility] Comment on above: Performed By: #### 1 [id number] #### [facility] [address] [place] [address] Hemoglobin (Bld) [Mass/Vol] 13.9 g/dL Normal 12.0-16.0 [facility] Comment on above: Performed By: #### 1 [id number] #### [facility] [address] [place] [address] Lymphocytes (Bld) [#/Vol] 2.1 E9/L Normal 1.0-4.0 [facility] Comment on above: Performed By: #### 1 [id number] #### [facility] [address] [place] [address] Lymphocytes/100 WBC (Bld) 25.6 % Normal 14.0-50.0 [facility] Comment on above: Performed By: #### 1 [id number] #### [facility] [address] [place] [address] MCH (RBC) [Entitic mass] 30.3 pg Normal 27.0-34.0 [facility] Comment on above: Performed By: #### 1 [id number] #### [facility] [address] [place] [address] MCHC (RBC) [Mass/Vol] 33.1 g/dL Normal 31.4-36.0 [facility] Comment on above: Performed By: #### 1 1960224 #### [facility] [address] [place] [address] MCV (RBC) [Entitic vol] 91.5 fL Normal 80.0-100.0 [facility] Comment on above: Performed By: #### 1 [id number] #### [facility] [address] [place] [address] Monocytes (Bld) [#/Vol] 0.5 E9/L Normal 0.2-1.0 [facility] Comment on above: Performed By: #### 1 [id number] #### [facility] [address] [place] [address] Neutrophils (Bld) [#/Vol] 5.5 E9/L Normal 2.0-7.5 [facility] Comment on above: Performed By: #### 1 [id number] #### [facility] [address] [place] [address] Neutrophils/100 WBC (Bld) 66.8 % Normal 36.0-75.0 [facility] Comment on above: Performed By: #### 1 9005660 #### [facility] [address] [place] [address] Platelet mean volume (Bld) [Entitic vol] 8.3 fL Normal 6.4-10.8 [facility] Comment on above: Performed By: #### 1 [id number] #### [facility] [address] [place] [address] Platelets (Bld) [#/Vol] 250.0 E9/L Normal 150.0-500.0 [facility] Comment on above: Performed By: #### 1 [id number] #### [facility] [address] [place] [address] RBC (Bld) [#/Vol] 4.6 E12/L Normal 4.3-5.9 [facility] [facility] Comment on above: Performed By: #### 1 [id number] #### [facility] [address] [place] [address] WBC corrected for nucl RBC Auto (Bld) [#/Vol] 8.3 E9/L Normal 4.0-11.0 [facility] Comment on above: Performed By: #### 1 [id number] #### [facility] [address] [place] [address] CHEMISTRYOrdered By: SYSTEM SYSTEM on 11-22-2023 Albumin [...] 11-22-2023 Albumin [Mass/Vol] 4.6 g/dL Normal 3.3-5.0 [facility] Comment on above: Performed By: #### 1 [id number] #### [facility] [address] [place] [address] Albumin/Globulin (S) [Mass conc ratio] 1.8 Normal 1.1-2.2 [facility] Comment on above: Performed By: #### 1 [id number] #### [facility] [address] [place] [address] ALP [Catalytic activity/Vol] 90 Int._Unit/L Normal 21-98 [facility] Comment on above: Performed By: #### 1 [id number] #### [facility] [address] [place] [address] ALT No additional P-5'-P [Catalytic activity/Vol] 41 Int._Unit/L Normal 6-46 [facility] Comment on above: Performed By: #### 1 [id number] #### [facility] [address] [place] [address] Anion gap [Moles/Vol] 13 mmol/L Normal 6-16 [facility] Comment on above: Performed By: #### 1 [id number] #### [facility] [address] [place] [address] AST [Catalytic activity/Vol] 30 Int._Unit/L Normal 5-43 [facility] Comment on above: Performed By: #### 1 [id number] #### [facility] [address] [place] [address] Bilirubin [Mass/Vol] 1.0 mg/dL Normal 0.0-1.1 [facility] Comment on above: Performed By: #### 1 [id number] #### [facility] [address] [place] [address] Calcium [Mass/Vol] 10.0 mg/dL Normal 8.9-11.1 [facility] Comment on above: Performed By: #### 1 [id number] #### [facility] [address] [place] [address] Chloride [Moles/Vol] 99 mmol/L Low 101-111 [facility] Comment on above: Performed By: #### 1 [id number] #### [facility] [address] [place] [address] CO2 [Moles/Vol] 27 mmol/L Normal 21-31 [facility] Comment on above: Performed By: #### 1 [id number] #### [facility] [address] [place] [address] Creatinine [Mass/Vol] 1.0 mg/dL Normal 0.5-1.3 [facility] Comment on above: Performed By: #### 1 [id number] #### [facility] [address] [place] [address] Globulin (S) [Mass/Vol] 2.6 g/dL Normal 1.4-4.0 [facility] Comment on above: Performed By: #### 1 [id number] #### [facility] [address] [place] [address] Glucose [Mass/Vol] 114 mg/dL Normal 55-199 [facility] Comment on above: Performed By: #### 1 6227928 #### [facility] [address] [place] [address] Potassium [Moles/Vol] 4.2 mmol/L Normal 3.5-5.3 [facility] Comment on above: Performed By: #### 1 1078859 #### [facility] [address] [place] [address] Protein [Mass/Vol] 7.2 g/dL Normal 6.0-7.8 [facility] Comment on above: Performed By: #### 1 [id number] #### [facility] [address] [place] [address] Sodium [Moles/Vol] 135 mmol/L Normal 135-145 [facility] Comment on above: Performed By: #### 1 5847313 #### [facility] [address] [place] [address] Urea nitrogen [Mass/Vol] 20 mg/dL Normal 5-21 [facility] Comment on above: Performed By: #### 1 [id number] #### [facility] [address] [place] [address] Urea nitrogen/Creatinine [Mass ratio] 20 No Units Normal 10-20 [facility] Comment on above: Performed By: #### 1 3397829 #### [facility] [address] [place] [address] COAGULATIONOrdered By: Elena Dinero on 11-22-2023 aPTT Coag (PPP) [Time] 41.3 s High 25.1 - 36.5 second(s) [facility] Auto Coag Comment on above: Interpretive Data: [...] the same coagulation reagent and instrumentation as [facility]. Currently there are no coagulation studies available worldwide for children to 14 days, and no normal ranges. Heparin therapeutic range (represented by Anti-Factor Xa activity of 0.2 - 0.4 U/mL) corresponds to PTT of 56.6 - 109.0 sec. INR Coag (PPP) [Relative time] 1.37 {INR} Invalid Interpretation Code [facility] Auto Coag Comment on above: Interpretive Data: I NR results are specifically intended to assess patients stabilized on long-term Anticoagulation therapy suggested INR s Less Intensive Anticoagulation 2.0 3.0 Conventional Range 3.0 4.5 PT Coag (PPP) [Time] 15.4 s High 9.4 - 1 2.5 second(s) [facility] Auto Coag Comment on above: Interpretive Data: [...] the same coagulation reagent and instrumentation as [facility]. Currently there are no coagulation studies available worldwide for children to 14 days, and no normal ranges. Consent for Treatmenton 11-12 Consent for Treatment [id number]#1 .00TIFF Normal [facility] Discharge Instructionson Discharge Instructions [id number]# 1.00TIFF Normal [facility] ED Clinical Summaryon 2023 ED Clinical Summary [place] [id number] ED Clinical Summary Person Information Name: HARJIT ASENCIO I Patricia/[facility] Age: 73 Years : 1950 Sex: Female Language: Citizen Of [place] PCP: Hannah Brian MD Marital Status: Visit [...] 11/22/2023 20:57:39 11/22/2023 20:57:39 11/22/2023 20:57:39 ADDRESS: [address] [place] [address] [address] [place] [id number] PHYS DOC NOTES: MEDICAL INFORMATION: Prescriptions Given: New Medications [facility], [address] [place] [id number], [phone] lactulose (lactulose 10 g/15 mL Oral Syrup) [...] 0. PATIENT EDUCATION INFORMATION: Instructions: Constipation, Adult, Szba-va-Gqwz Follow up: With: Address: When: Hannah [place] [address] In 3 days 11/25/2023 DIAGNOSIS: 1:Constipation Normal [facility] ED Patient Education Noteon 11-22-2023 ED [...] in fat and sugar, such as: ? Egyptian fries. ? Hamburgers. ? Cookies. ? Candy. ? Soda. ? Drink enough fluid to keep your pee (urine) pale yellow. General instructions ? Exercise regularly or as told by your doctor. Try to do 150 minutes of exercise each week. ? Go to the restroom when you feel like you need to poop. Do not hold it in. ? Take xdak-xes-syepidd and prescription medicines only as told by [...] your pee (urine) pale yellow. ? Take twud-yxc-vcwrqsd and prescription medicines only as told by your doctor. These include any fiber supplements. This information is not intended to replace advice given to you by your health care provider. Make sure you discuss any questions you have with your health care provider. Document Revised: 06/17/2020 Document Reviewed: 06/17/2020 Elsevier Patient Education ? 2022 [employer] Normal [facility] ED Patient Summaryon 024 ED Patient Summary [address] [address] Patient Discharge Instructions Person Information Name: HARJIT ASENCIO I Age: 73 Years Arrival Date: 11/22/2023 16:16:41 Discharge Diagnosis: 1:Constipation Primary Care Physician: Hannah Brian MD Provider Information Primary Provider: Jayson Calloway DO Advanced Payloader Operator:None The exam and treatment you received in the Emergency Department were for an urgent problem and are not intended as complete care. It is important that you follow up with a doctor, nurse practitioner, or physician?s geriatric assistant for ongoing care. If your symptoms [...] Address: When: Hannah Brian MD [address] [address] In 3 days 11/25/2023 In the event that this physician does not participate in your insurance network, please consult with your insurance company to find a nearby participating provider. 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 u Source: US Department of Health and Human S (more content not included)... [facility] HEMATOLOGYOrdered By: SYSTEM SYSTEM on 11-22-2023 [...] Magnesium [Mass/Vol] 2.0 mg/dL Normal 1.3-2.4 [facility] Comment on above: Performed By: #### 1 [id number] #### [facility] [address] [place] [address] PT & PTTon 11-22-2023 aPTT Coag (PPP) [Time] 41.3 second(s) High 25.1-36.5 [facility] Comment on above: Result Comment: Para [...] the same coagulation reagent and instrumentation as [facility]. Currently there are no coagulation studies available worldwide for children to 14 days, and no normal ranges. Heparin therapeutic range (represented by Anti-Factor Xa activity of 0.2 - 0.4 U/mL) corresponds to PTT of 56.6 - 109.0 sec. Performed By: #### 1 [id number] #### [facility] [address] [place] [address] INR Coag (PPP) [Relative time] 1.37 {INR} Invalid Interpretation Code [facility] Comment on above: Result Comment: INR results are specifically intended to assess patients stabilized on long-term Anticoagulation therapy suggested INR?s ?Less Intensive Anticoagulation? 2.0 ? 3.0 Conventional Range 3.0 ? 4.5 Performed By: #### 1 [id number] #### [facility] [address] [place] [address] PT Coag (PPP) [Time] 15.4 second(s) High 9.4-12.5 [facility] Comment on above: Result Comment: 15 [...] the same coagulation reagent and instrumentation as [facility]. Currently there are no coagulation studies available worldwide for children to 14 days, and no normal ranges. Performed By: #### 1 [id number] #### [facility] [address] [place] [address] RAD - Preliminary Cat Scan R eporton 11-22-2023 RAD - Preliminary Cat Scan Report [id number]# 1.00TIFF Normal [facility] Troponin 0 Hr.on 11-22-2023 Troponin 12.30 pg/mL Normal 10.10-27.10 [facility] Comment on above: Result Comment: The 95% CI (Confidence Interval) PPV (Positive Predictive Value) for myocardial infarction in females is 38 pg/mL, in males 51 pg/mL. The results should be used in conjunction with clinical conditions of myocardial infarction. (Access High Sensitivity Troponin I Instructions For Use, Marlys Eldridge, March 2018) Performed By: #### 1 [id number] #### [facility] [address] [place] [address] UA with Cult Rflxon 11-22-19 24 Bilirubin Ql (U) Negative Normal Negative [facility] Comment on above: Performed By: #### 2 002933, 42321675, 6785446, 8146799, 8829686, 9956537 #### [facility] [address] [place] [address] Clarity (U) Clear Normal Clear [facility] Comment on above: Performed By: #### 2 569872, 48138997, 2671368, 6968130, 5296269, 9231962 #### [facility] [address] [place] [address] Color (U) Colorless Abnormal Yellow [facility] Comment on above: Result Comment: Micr oscopic readings are only performed on those samples that meet specific criteria set forth by [facility]. Performed By: #### 2 545380, 17095331, 9387275, 4446254, 7172947, 5056377 #### [facility] [address] [place] [address] Epithelial cells.squamous Auto (Urine sed) [#/Area] 0-2 Normal 0-2 [facility] Comment on above: Performed By: #### 2 524887, 94379085, 9129312, 2516296, 0685033, 3816309 #### [facility] [address] [place] [address] Glucose Ql (U) Negative Normal Negative [facility] Comment on above: Performed By: #### 2 530897, 70536323, 8899871, 3627657, 0581006, 5466276 #### [facility] [address] [place] [address] Hemoglobin Auto test strip (U) [Mass/Vol] Negative Normal Negative [facility] Comment on above: Performed By: #### 2 425168, 48729972, 0704300, 1509937, 3309241, 8529677 #### [facility] [address] [place] [address] Ketones Auto test strip Ql (U) Negative Normal Negative [facility] Comment on above: Performed By: #### 2 177826, 45000300, 6391027, 5704597, 1806612, 5791821 #### [facility] [address] [place] [address] Leukocyte esterase Auto test strip Ql (U) 75 Ghislaine/uL Abnormal Negative [facility] Comment on above: Performed By: #### 2 468727, 30713188, 4815793, 8666895, 4184621, 8568903 #### [facility] [address] [place] [address] Mucus Auto Ql (U) Negative Normal Negative [facility] Comment on above: Performed By: #### 2 845033, 97713788, 1524263, 9791656, 2572847, 1827677 #### [facility] [address] [place] [address] Nitrite Auto test strip Ql (U) Negative Normal Negative [facility] Comment on above: Performed By: #### 2 222871, 73599288, 6132967, 6674750, 0785717, 2163452 #### [facility] [address] [place] [address] pH (U) 7.0 [pH] Invalid Interpretation Code 5.0-9.0 [facility] Comment on above: Performed By: #### 2 208216, 49676988, 4790873, 6324409, 1289935, 2005636 #### [facility] [address] [place] [address] Protein Ql (U) Negative Normal Negative [facility] Comment on above: Performed By: #### 2 099470, 53224766, 7427826, 6940426, 9343409, 9463691 #### [facility] [address] [place] [address] RBC Ql (U) 0-3 Normal 0-3 [facility] Comment on above: Performed By: #### 2 893474, 54990780, 0936413, 9979465, 5954116, 4168229 #### [facility] [address] [place] [address] Specific gravity (U) [Rel density] 1.004 Invalid Interpretation Code 1.005-1.030 [facility] Comment on above: Performed By: #### 2 412465, 49921497, 3824903, 8476531, 0493253, 5705786 #### [facility] [address] [place] [address] Urobilinogen (U) [Mass/Vol] Negative Normal Negative [facility] Comment on above: Performed By: #### 2 758198, 92492346, 1654706, 9568196, 2188757, 9691883 #### [facility] [address] [place], [place] [address] WBC Auto (Urine sed) [#/Area] 0-5 Normal 0-5 [facility] Comment on above: Performed By: #### 2 388681, 56955804, 3537546, 2960249, 2135543, 5290637 #### [facility] [address] [place] [address] Type of Urine collection method Clean Catch Normal [facility] Comment on above: Performed By: #### 2 956502, 74292853, 0535533, 4399740, 5889981, 2521753 #### [facility] [address] [place] [address] URINALYSISOrdered By: SYSTEM SYSTEM on 11-22-2023 Bilirubin [...] that meet specific criteria set forth by [facility]. Epithelial cells.squamous Auto (Urine sed) [...] Desc Clean Catch (11/22/23 4:36 PM) Normal [facility] UA Auto SS XR Abdomen 1 Viewon [...] Zhou FINAL REPORT Dictated: 11/22/2023 6:05 pm SignMoiz gaitan MD Signed (Electronic Signature): 11/22/2023 6:05 pm Signed by: Moiz Carreno MD Transcribed by: ARAVIND Technologist: MARY Technical Comments Radiation Dose: Ka,r in mGy = na DAP = na [facility] eGFRon 11-22-2023 eGFR 58 mL/min/1.73 m2 Low >=59 [facility] Comment on above: Order Comment: Order added by Discern Expert. Performed By: #### 1 6353935 #### [facility] [address] [place] [address] Consent for Treatmenton Consent for Treatment [id number]#1 .00TIFF Normal [facility] US Abdomen, Limitedon 2023 US Abdomen, [...] Nava MD Transcribed by: ARAVIND Technologist: JOSE Doty [facility] Physician Orderon 11-09-2023 Physician Order [id number]#1 .00TIFF Normal [facility] CNOVon 10-16-2023 CNOV Normal [facility] CNPNon 10-16-2023 CNPN Normal [facility] UA DIP, URINE (POC)on 2023 BILIRUBIN UA (POCT) Negative Negative [facility] CLARITY UA (POCT) Clear [facility] COLOR UA (POCT) Yellow [facility] GLUCOSE UA (POCT) Negative Negative mg/dL [facility] Hemoglobin Ql (U) Trace-lysed Abnormal Negative [facility] KETONE UA (POCT) Negative Negative mg/dL [facility] LEUKOCYTES UA (POCT) Large Abnormal Negative [facility]) Negative Negative [facility] PH UA (POCT) 6.0 4.5 - 8.0 [facility] Protein Ql (U) Negative Negative mg/dL [facility] SPECIFIC GRAVITY UA (POCT) 1.010 1.005 - 1.030 [facility] UROBILINOGEN UA (POCT) 0.2 E.U./dL Normal E.U./dL [facility] ED Note-Physicianon 10-06-19 ED Note-Physician Basic Information [...] Constipation, unspecified) (more content not included)... [facility] Comment on above: Result Comment: Elec tronically Signed By: Nica Knox PA-C\.br\Date and Time Signed: 10/05/23 21:57 EST\.br\Electronically Co-Signed By: Koby Masterson DO.br\Date and Time Co-Signed: 10/06/23 00:54 EST Consent for Treatmenton 09-15 Consent for Treatment [id number]#1 .00TIFF Normal [facility] Discharge Instructionson Discharge Instructions [id number]# 1.00TIFF Normal [facility] ED Clinical Summaryon 2023 ED Clinical Summary [place] [id number] ED Clinical Summary Person Information Name: HARJIT ASENCIO I Patricai/[facility]_Ideal Age: 73 Years : 1950 Sex: Female Language: Citizen Of [place] PCP: Peggy Nazario MD Marital Status: Visit [...] 10/05/2023 21:56:34 10/05/2023 21:56:34 10/05/2023 21:56:34 ADDRESS: [address] [place] [address] [address] [facility] [phone] PHYS DOC NOTES: MEDICAL INFORMATION: Prescriptions Given: Medications to Continue Taking That Have Changed [facility], [address] [place] [id number], [phone] START: carvedilol (carvedilol 3.125 mg Tab) 1 [...] 0. PATIENT EDUCATION INFORMATION: Instructions: Constipation, Adult, Phnh-um-Gjbz; Gastroesophageal Reflux Disease, Adult, Cllk-ig-Qyjg; Abdominal Pain, Adult, Iwjf-uk-Mvks Follow up: With: Address: When: Johan HENRIQUEZ [address] [place] [phone] [employer] (1) In 3 days 10/08/2023 With: Address: When: Peggy Nazario [address] [place] [address] [employer] (1) In 3 days DIAGNOSIS: 1:Constipation Normal [facility] ED Patient Education Noteon 10-05-2023 ED [...] in fat and sugar, such as: ? Egyptian fries. ? Hamburgers. ? Cookies. ? Candy. ? Soda. ? Drink enough fluid to keep your pee (urine) pale yellow. General instructions ? Exercise regularly or as told by your doctor. Try to do 150 minutes of exercise each week. ? Go to the restroom when you feel like you need to poop. Do not hold it in. ? Take hair-pvj-fdndplu and prescription medicines only as told by [...] your pee (urine) pale yellow. ? Take emah-iir-cughaiq and prescription medicines only as told by your doctor. These include any fiber supplements. This information is not intended to replace advice given to you by your health care provider. Make sure you discuss any questions you have with your health care provider. Document Revised: 06/17/2020 Document Reviewed: 06/17/2020 OneTouch Patient Education ? 2022 [employer] Gastroesophageal Reflux Disease, Adult Gastroesophageal reflux [...] ? Hors (more content not included)... Normal [facility] ED Patient Summaryon 024 ED Patient Summary [place] [id number] Patient Discharge Instructions Person Information Name: HARJIT ASENCIO I Age: 73 Years Arrival Date: 10/05/2023 17:54:10 Discharge Diagnosis: 1:Constipation Primary Care Physician: Aravind MCMAHON, Peggy Mcmillan Provider Information Primary Provider: Koby Masterson DO Advanced Payloader Operator:None The exam and treatment you received in the Emergency Department were for an urgent problem and are not intended as complete care. It is important that you follow up with a doctor, nurse practitioner, or physician?s geriatric assistant for ongoing care. If your symptoms [...] Instructions: With: Address: When: Johan HENRIQUEZ [address] [place] [phone] [employer] (1) In 3 days 10/08/2023 With: Address: When: Peggy Nazario [address] [place] [id number] [employer] (1) In 3 days In the event that this physician does not participate in your insurance network, please consult with your insurance company to find a nearby participating provider. Patient Education Materials: Constipation, Adult, Ryzz-hn-Dxph; Gastroesophageal Reflux Disease, Adult, Surv-rb-Mliy; Abdominal Pain, Adult, Jieu-im-Yknt A MESSAGE TO ALL PATIENTS REGARDING OPIOIDS PRESCRIPTION OPIOIDS: WHAT YOU NEED TO KNOW Prescription opioids can be used to help relieve bckieupj-ee-ccaujq pain and are often prescribed following a [...] ? If (more content not included)... [facility] CNPNon 10-02-2023 CNPN Normal [facility] Echocardiographyon 4 Echocardiography [id number]#1 .00TIFF Normal [facility] Outside Cardiovascularon Outside Cardiovascular [id number]#1 .00TIFF Normal [facility] Outside Cardiovascular [id number]#1 .00TIFF Normal [facility] Outside Cardiovascular [id number]#1 .00TIFF Normal [facility] Outside Operativeon 09-27-19 24 Outside Operative [id number]#1 .00TIFF Normal [facility] Outside Operative [id number]#1 .00TIFF Normal [facility] Outside Radiologyon 09-27-19 24 Outside Radiology [id number]#1 .00TIFF Normal [facility] Outside Radiology [id number]#1 .00TIFF Normal [facility] CBC panel Auto (Bld)on 09-26 Erythrocyte distribution width (RBC) [Ratio] 13.2 % Normal 11.5-15.0 [facility] Comment on above: Order Comment: Speci men Type: BLOOD SPECIMENOrdering Facility: [facility] Address: [address] [place] [address] Performed By: #### 5 8410-2 ####[facility]CL[facility] [id number] [place] [address] [place] Hematocrit (Bld) [Volume fraction] 38.1 % Normal 36.0-46.0 [facility] Comment on above: Order Comment: Speci men Type: BLOOD SPECIMENOrdering Facility: [facility] Address: [address] [place] [address] Performed By: #### 5 8410-2 ####[facility] [id number] [place] [address] [place] Hemoglobin (Bld) [Mass/Vol] 12.2 g/dL Normal 11.5-15.5 [facility] Comment on above: Order Comment: Speci men Type: BLOOD SPECIMENOrdering Facility: [facility] Address: [address] [place] [address] Performed By: #### 5 8410-2 ####[facility] LABIA [id number] [place] [address] [place] MCH (RBC) [Entitic mass] 29.5 pg Normal 26.0-34.0 [facility] Comment on above: Order Comment: Speci men Type: BLOOD SPECIMENOrdering Facility: [facility] Address: [address] [place] [address] Performed By: #### 5 8410-2 ####[facility] LABIA [id number] [place] [address] [place] MCHC (RBC) [Mass/Vol] 32.0 g/dL Normal 30.5-36.0 [facility] [facility] Comment on above: Order Comment: Speci men Type: BLOOD SPECIMENOrdering Facility: [facility] Address: [address] [place] [address] Performed By: #### 5 8410-2 ####[facility] LABIA [id number] [place] [address] [place] MCV (RBC) [Entitic vol] 92.0 fL Normal 80.0-100.0 [facility] Comment on above: Order Comment: Speci men Type: BLOOD SPECIMENOrdering Facility: [facility] Address: [address] [place] [address] Performed By: #### 5 8410-2 ####[facility] LABIA [id number] [place] [address] [place] Nucleated RBC (Bld) [#/Vol] 10*3/uL Normal <0.01 [facility] Comment on above: Order Comment: Speci men Type: BLOOD SPECIMENOrdering Facility: [facility] Address: [address] [place] [address] Performed By: #### 5 8410-2 ####[facility] LABCLIA [id number] [place] [address] [place] Platelet mean volume (Bld) [Entitic vol] 10.5 fL Normal 9.0-12.7 [facility] Comment on above: Order Comment: Speci men Type: BLOOD SPECIMENOrdering Facility: [facility] Address: [address] [place] [address] Performed By: #### 5 8410-2 ####[facility] LABCLIA [id number] [place] [address] [place] Platelets (Bld) [#/Vol] 195 10*3/uL Normal 150-400 [facility] Comment on above: Order Comment: Speci men Type: BLOOD SPECIMENOrdering Facility: [facility] Address: [address] [place] [address] Performed By: #### 5 8410-2 ####[facility] LABIA [id number] [place] [address] [place] RBC (Bld) [#/Vol] 4.14 10*6/uL Normal 3.90-5.20 [facility] Comment on above: Order Comment: Speci men Type: BLOOD SPECIMENOrdering Facility: [facility] Address: [address] [place] [address] Performed By: #### 5 8410-2 ####[facility] LABCLIA [id number] [place] [address] [place] WBC (Bld) [#/Vol] 6.03 10*3/uL Normal 3.70-11.00 [facility] Comment on above: Order Comment: Speci men Type: BLOOD SPECIMENOrdering Facility: [facility] Address: [address] [place] [address] Performed By: #### 5 8410-2 ####[facility] LABIA [id number] [place] [address] [place] [facility] CBC PNL BLD AUTOon 09-26 [facility] NRBC # BLD AUTO <0.01 NINF [facility] PLATELET # BLD AUTO 195 [facility] PMV BLD AUTO 10.5 fL 9.0 - 12.7 fL [facility] WBC # BLD AUTO 6.03 [facility] Erythrocyte distribution width (RBC) [Ratio] 13.2 % 11.5 - 15.0 % [facility] Hematocrit (Bld) [Volume fraction] 38.1 % 36.0 - 46.0 % [facility] Hemoglobin (Bld) [Mass/Vol] 12.2 g/dL 11.5 - 15.5 g/dL [facility] MCH (RBC) [Entitic mass] 29.5 pg 26.0 - 34.0 pg [facility] MCHC (RBC) [Mass/Vol] 32.0 g/dL 30.5 - 36.0 g/dL [facility] MCV (RBC) [Entitic vol] 92.0 fL 80.0 - 100.0 fL [facility] RBC (Bld) [#/Vol] 4.14 10*6/uL 3.90 - 5.2 0 m/uL [facility] Specimen Type: BLOOD SPECIMEN Ordering Facility: [facility] Address: [address] [place] [address] Original Ordering Provider: ALEA GUZMAN [facility] CNOVon 09-26-2023 CNOV Normal [facility] CNPTOUTREACHon 09-26-2023 CNPTOUTREACH Normal [facility] Comprehensive metabolic 2000 panelon 09-26-2023 Albumin [Mass/Vol] 4.2 g/dL Normal 3.9-4.9 [facility] Comment on above: Order Comment: Speci men Type: BLOOD SPECIMENOrdering Facility: [facility] Address: [address] [place] [address] Performed By: #### 3 3762-6, 63946-7 ####[facility] LABCLIA [id number] [place] [address] [place] ALP [Catalytic activity/Vol] 57 U/L Normal 34-123 [facility] Comment on above: Order Comment: Speci men Type: BLOOD SPECIMENOrdering Facility: [facility] Address: [address] [place] [place] [id number] Performed By: #### 3 3762-6, ####[facility] LABCLIA [id number] [address] [address] [place] ALT [Catalytic activity/Vol] 36 U/L Normal 7-38 [facility] Comment on above: Order Comment: Speci men Type: BLOOD SPECIMENOrdering Facility: [facility] Address: [address] [place] [id number] Performed By: #### 3 3762-6, ####[facility] LABCLIA [id number] [place] [address] [place] Anion gap [Moles/Vol] 10 mmol/L Normal 9-18 [facility] Comment on above: Order Comment: Speci men Type: BLOOD SPECIMENOrdering Facility: [facility] Address: [address] [place] [phone] Performed By: #### 3 3762-6, ####[facility] LABCLIA [id number] [place] [address] [place] AST [Catalytic activity/Vol] 29 U/L Normal 13-35 [facility] Comment on above: Order Comment: Speci men Type: BLOOD SPECIMENOrdering Facility: [facility] Address: [address] [place] [place] [phone] Performed By: #### 3 3762-6, ####[facility] LABCLIA [id number] [place] [address] [place] Bilirubin [Mass/Vol] 0.6 mg/dL Normal 0.2-1.3 [facility] Comment on above: Order Comment: Speci men Type: BLOOD SPECIMENOrdering Facility: [facility] Address: [address] [place] [address] Performed By: #### 3 3762-6, ####[facility] LABCLIA [id number] [place] [address] [place] Calcium [Mass/Vol] 9.6 mg/dL Normal 8.5-10.2 [facility] Comment on above: Order Comment: Speci men Type: BLOOD SPECIMENOrdering Facility: [facility] Address: [address] [place] [address] Performed By: #### 3 3762-6, ####[facility] LABCLIA [id number] [place] [address] [place] Chloride [Moles/Vol] 100 mmol/L Normal 97-105 [facility] Comment on above: Order Comment: Speci men Type: BLOOD SPECIMENOrdering Facility: [facility] Address: [address] [place] [address] Performed By: #### 3 376-6, ####[facility] LABCLIA [id number] [facility] [address] [place] CO2 [Moles/Vol] 29 mmol/L Normal 22-30 [facility] Comment on above: Order Comment: Speci men Type: BLOOD SPECIMENOrdering Facility: [facility] Address: [address] [place] [address] Performed By: #### 3 3762-6, ####[facility] LABCLIA [id number] [place] [address] [place] Creatinine [Mass/Vol] 0.82 mg/dL Normal 0.58-0.96 [facility] Comment on above: Order Comment: Speci men Type: BLOOD SPECIMENOrdering Facility: [facility] Address: [address] [place] [address] Performed By: #### 3 3762-6, 63971-0 ####[facility] LABCLIA [id number] [place] [address] [place] Creatinine and Glomerular filtration rate.predicted panel (S/P/Bld) 75 mL/min/1.73m??? Normal >=60 [facility] Comment on above: Order Comment: Nichole mariam Type: BLOOD SPECIMENOrdering Facility: [facility] Address: [address] [place] [address] Result Comment: Shelley mated Glomerular Filtration Rate [...] actual GFR. Performed By: #### 3 3762-6, 87946-6 ####[facility] LABCLIA [id number] [place] [address] [place] Glucose [Mass/Vol] 129 mg/dL High 74-99 [facility] Comment on above: Order Comment: Nichole becerra Type: BLOOD SPECIMENOrdering Facility: [facility] Address: [address] [place] [address] Result Comment: The [place] Diabetes Association (ADA) provides guidance for cutoff [...] Standards of Medical Care in Diabetes 2016, [place] [employer]. Diabetes Care. 2016.39(Suppl 1). Performed By: #### 3 3762-6, 39429-9 ####[facility] LABCLIA [id number] [place] [id number] [place] Potassium [Moles/Vol] 4.3 mmol/L Normal 3.7-5.1 [facility] Comment on above: Order Comment: Speci men Type: BLOOD SPECIMENOrdering Facility: [facility] Address: [address] [place] [address] Performed By: #### 3 3762-6, ####[facility] LABCLIA [id number] [place] [address] [place] Protein [Mass/Vol] 6.4 g/dL Normal 6.3-8.0 [facility] Comment on above: Order Comment: Speci men Type: BLOOD SPECIMENOrdering Facility: [facility] Address: [address] [place] [address] Performed By: #### 3 3762-6, 66792-6 ####[facility] LABIA [id number] [place] [address] [place] Sodium [Moles/Vol] 139 mmol/L Normal 136-144 [facility] Comment on above: Order Comment: Speci men Type: BLOOD SPECIMENOrdering Facility: [facility] Address: [address] [place] [address] Performed By: #### 3 3762-6, ####[facility] LABIA [id number] [place] [address] [place] Urea nitrogen [Mass/Vol] 15 mg/dL Normal 7-21 [facility] Comment on above: Order Comment: Speci men Type: BLOOD SPECIMENOrdering Facility: [facility] Address: [address] [place] [address] Performed By: #### 3 3762-6, ####[facility] LABCLIA [id number] [place] [address] [place] [id number] 09-26-2023 ECG01 Normal [facility]26 Natriuretic peptide.B prohormone N-Terminal [Mass/Vol] 2047 pg/mL High <450 [facility] Comment on above: Order Comment: Speci men Type: BLOOD SPECIMENOrdering Facility: [facility] Address: [address] [place] [address] Performed By: #### 3 3762-6, 94613-9 ####[facility] LABCLIA [id number] [place] [address] [address] [place] URINALYSIS, REFLEX MICROSCOP ICon 09-26-2023 Bacteria LM.HPF (Urine sed) [#/Area] Few Abnormal None Seen /HPF [facility] Bilirubin Ql (U) Negative Negative [facility] Clarity (Unsp spec) Cloudy Abnormal Clear [facility] Color (U) Yellow Yellow [facility] Epithelial cells LM.HPF (Urine sed) [#/Area] Moderate [facility] Epithelial cells LM.HPF (Urine sed) [#/Area] Few Abnormal None Seen /HPF [facility] Glucose Test strip (U) [Mass/Vol] Negative Trace, Negative [facility] Hemoglobin Ql (U) 1+ Abnormal Negative, Trace [facility] Ketones Ql (U) Negative Negative, Trace [facility] Leukocyte esterase Test strip Ql (U) 500 Ghislaine/uL Abnormal Negative, 25 Ghislaine/uL [facility] Nitrite Ql (U) Negative Negative [facility] pH (U) 6.0 [pH] 5.0 - 8.0 [facility] Protein (U) [Mass/Vol] Negative Trace, Negative [facility] RBC LM.HPF (Urine sed) [#/Area] 3-5 /HPF Abnormal 0-3 /HPF [facility] Specific gravity (U) [Rel density] 1.013 1.005 - 1.030 [facility] Urobilinogen Ql (U) Normal Normal [facility] WBC LM.HPF (Urine sed) [#/Area] /[HPF] Abnormal 0-5 /HPF [facility] Bacteria LM.HPF (Urine sed) [#/Area] Few Abnormal None Seen [facility] Comment on above: Order Comment: Speci men Type: URINE SPECIMENOrdering Facility: [facility] Address: [address] [place] [address] Performed By: #### L [id number] ####[facility] LABCLIA [id number] [place] [address] [place] Bilirubin Ql (U) Negative Normal Negative [facility] Comment on above: Order Comment: Speci men Type: URINE SPECIMENOrdering Facility: [facility] Address: [address] [place] [address] Performed By: #### L [id number] ####[facility] LABCLIA [id number] [place] [address] [place] Clarity (Unsp spec) Cloudy Abnormal Clear [facility] Comment on above: Order Comment: Speci men Type: URINE SPECIMENOrdering Facility: [facility] Address: [address] [place] [address] Performed By: #### L [id number] ####[facility] LABCLIA [id number] [place] [address] [place] Color (U) Yellow Normal Yellow [facility] Comment on above: Order Comment: Speci men Type: URINE SPECIMENOrdering Facility: [facility] Address: [address] [place] [address] Performed By: #### L [id number] ####[facility] LABCLIA [id number] [place] [address] [place] Epithelial cells LM.HPF (Urine sed) [#/Area] Moderate Normal [facility] Comment on above: Order Comment: Speci men Type: URINE SPECIMENOrdering Facility: [facility] Address: [address] [place] [address] Result Comment: Few Performed By: #### L [id number] ####[facility] LABCLIA [id number] [place] [address] [place] Glucose Test strip (U) [Mass/Vol] Negative Normal Trace, Negative [facility] Comment on above: Order Comment: Speci men Type: URINE SPECIMENOrdering Facility: [facility] Address: [address] [place] [address] Performed By: #### L [id number] ####[facility] LABCLIA [id number] [place] [address] [place] Hemoglobin Ql (U) 1+ Abnormal Negative, Trace [facility] Comment on above: Order Comment: Speci men Type: URINE SPECIMENOrdering Facility: [facility] Address: [address] [place] [address] Performed By: #### L [id number] ####[facility] LABCLIA [id number] [place] [address] [place] Ketones Ql (U) Negative Normal Negative, Trace [facility] Comment on above: Order Comment: Speci men Type: URINE SPECIMENOrdering Facility: [facility] Address: [address] [place] [address] Performed By: #### L [id number] ####[facility] LABCLIA [id number] [place] [address] [place] Leukocyte esterase Test strip Ql (U) 500 Ghislaine/uL Abnormal Negative, 25 Ghislaine/uL [facility] Comment on above: Order Comment: Speci men Type: URINE SPECIMENOrdering Facility: [facility] Address: [address] [place] [address] Performed By: #### L [id number] ####[facility] LABCLIA [id number] [place] [address] [place] Nitrite Ql (U) Negative Normal Negative [facility] Comment on above: Order Comment: Speci men Type: URINE SPECIMENOrdering Facility: [facility] Address: [address] [place] [address] Performed By: #### L [id number] ####[facility] LABCLIA [id number] [place] [address] [place] pH (U) 6.0 [pH] Normal 5.0-8.0 [facility] Comment on above: Order Comment: Speci men Type: URINE SPECIMENOrdering Facility: [facility] Address: [address] [place] [address] Performed By: #### L [id number] ####[facility] LABIA [id number] [place] [address] [place] Protein (U) [Mass/Vol] Negative Normal Trace, Negative [facility] Comment on above: Order Comment: Speci men Type: URINE SPECIMENOrdering Facility: [facility] Address: [address] [place] [address] Performed By: #### L [id number] ####[facility] [id number] [place] [address] [place] RBC LM.HPF (Urine sed) [#/Area] 3-5 /HPF Abnormal 0-3 /HPF [facility] Comment on above: Order Comment: Speci men Type: URINE SPECIMENOrdering Facility: [facility] Address: [address] [place] [address] Performed By: #### L [id number] ####[facility] [id number] [place] [address] [place] Specific gravity (U) [Rel density] 1.013 Normal 1.005-1.030 [facility] Comment on above: Order Comment: Speci men Type: URINE SPECIMENOrdering Facility: [facility] Address: [address] [place] [address] Performed By: #### L [id number] ####[facility] LABIA [id number] [place] [address] [place] Urobilinogen Ql (U) Normal Normal Normal [facility] Comment on above: Order Comment: Speci men Type: URINE SPECIMENOrdering Facility: [facility] Address: [address] [place] [address] Performed By: #### L [id number] ####[facility] LABIA [id number] [place] [address] [place] WBC LM.HPF (Urine sed) [#/Area] /[HPF] Abnormal 0-5 /HPF [facility] Comment on above: Order Comment: Speci men Type: URINE SPECIMENOrdering Facility: [facility] Address: [address] [place] [address] Performed By: #### L [id number] ####[facility] LABCLIA [id number] [place] [address] [place] CNPNon 09-21-2023 CNPN Normal [facility] BMPon 09-17-2023 Anion gap [Moles/Vol] 9 mmol/L Normal 6-16 [facility] Comment on above: Performed By: #### 2 347919, 72248989, 3346980, 9975352, 4136518, 6738097 #### [facility] [address] [place] [address] BUN/Creat Ratio 24 No Units High 10-20 [facility] Comment on above: Performed By: #### 2 181397, 00923649, 1525555, 3050056, 5028646, 3242952 #### [facility] [address] [place] [address] Calcium [Mass/Vol] 9.1 mg/dL Normal 8.9-11.1 [facility] Comment on above: Performed By: #### 2 199201, 78148532, 0565081, 9683301, 3574432, 2837337 #### [facility] [address] [place] [address] Chloride [Moles/Vol] 105 mmol/L Normal 101-111 [facility] Comment on above: Performed By: #### 2 889324, 03434063, 0231422, 1584163, 2201624, 2560303 #### [facility] [address] [place] [address] CO2 [Moles/Vol] 28 mmol/L Normal 21-31 [facility] Comment on above: Performed By: #### 2 791655, 49208299, 8541203, 2300130, 7439420, 0679424 #### [facility] [address] [place] [address] Creatinine [Mass/Vol] 0.7 mg/dL Normal 0.5-1.3 [facility] Comment on above: Performed By: #### 2 793706, 49436715, 7274416, 4650991, 7557214, 4777457 #### [facility] [address] [place] [address] Glucose [Mass/Vol] 83 mg/dL Normal 55-199 [facility] Comment on above: Performed By: #### 2 176444, 14799596, 7380264, 7631562, 4531488, 8082118 #### [facility] [address] [place] [address] Potassium [Moles/Vol] 4.0 mmol/L Normal 3.5-5.3 [facility] Comment on above: Performed By: #### 2 233261, 29039881, 8894881, 6370111, 2890811, 3723218 #### [facility] [address] [place] [address] Sodium [Moles/Vol] 138 mmol/L Normal 135-145 [facility] Comment on above: Performed By: #### 2 604149, 96336980, 0329683, 2913676, 5818844, 8562135 #### [facility] [address] [place] [address] Urea nitrogen [Mass/Vol] 17 mg/dL Normal 5-21 [facility] Comment on above: Performed By: #### 2 475158, 02451326, 3208098, 0973770, 2706541, 6158277 #### [facility] [address] [place] [address] CBC w/ Auto Diffon 4 Basophil Absolute 0.1 E9/L Normal 0.0-0.2 [facility] Comment on above: Performed By: #### 2 671853, 38094986, 4622178, 3521851, 1882521, 9998021 #### [facility] [address] [place] [address] Basophils/100 WBC (Bld) 0.9 % Normal 0.0-2.0 [facility] Comment on above: Performed By: #### 2 440432, 34594964, 5678777, 3310271, 7288011, 7808134 #### [facility] [address] [place] [address] Eos Absolute 0.0 E9/L Normal 0.0-0.5 [facility] Comment on above: Performed By: #### 2 696363, 58579832, 3894641, 9308114, 0751926, 4257279 #### [facility] [address] [place] [address] Eosinophils/100 WBC (Bld) 0.7 % Normal 0.0-8.0 [facility] Comment on above: Performed By: #### 2 308632, 27037133, 0956847, 6619418, 0883591, 8776955 #### [facility] [address] [place] [address] Erythrocyte distribution width (RBC) [Ratio] 14.1 % Normal 10.9-14.2 [facility] Comment on above: Performed By: #### 2 862064, 28673733, 2943619, 1098458, 6441542, 5340786 #### [facility] [address] [place] [address] Hematocrit (Bld) [Volume fraction] 36.0 % Normal 34.0-46.0 [facility] Comment on above: Performed By: #### 2 214904, 94543815, 1485072, 2225126, 8382687, 9029026 #### [facility] [address] [place] [address] Hemoglobin (Bld) [Mass/Vol] 12.2 g/dL Normal 12.0-16.0 [facility] Comment on above: Performed By: #### 2 014078, 27551780, 4061446, 7504615, 6737006, 4359166 #### [facility] [address] [place] [address] Lymph Absolute 2.1 E9/L Normal 1.0-4.0 [facility] Comment on above: Performed By: #### 2 109194, 20146278, 0877800, 0763593, 4300832, 4403090 #### [facility] [address] [place] [address] Lymphocytes/100 WBC (Bld) 31.6 % Normal 14.0-50.0 [facility] Comment on above: Performed By: #### 2 316185, 90405078, 7258999, 7015756, 8763172, 9581635 #### [facility] [address] [place] [address] MCH (RBC) [Entitic mass] 30.0 pg Normal 27.0-34.0 [facility] Comment on above: Performed By: #### 2 723848, 48246614, 6453464, 0545257, 4355010, 5377074 #### [facility] [address] [place] [address] MCHC (RBC) [Mass/Vol] 34.1 g/dL Normal 31.4-36.0 [facility] Comment on above: Performed By: #### 2 689560, 10210222, 9199764, 4785216, 3661991, 2465395 #### [facility] [address] [place] [address] MCV (RBC) [Entitic vol] 88.0 fL Normal 80.0-100.0 [facility] Comment on above: Performed By: #### 2 081141, 70766808, 1475537, 9060864, 9029935, 8190985 #### [facility] [address] [place] [address] [place] Absolute 0.6 E9/L Normal 0.2-1.0 [facility] Comment on above: Performed By: #### 2 413622, 56784754, 0317505, 6609510, 9187836, 8371888 #### [facility] [address] [place] [address] Monocytes/100 WBC (Bld) 9.5 % Normal 4.0-14.0 [facility] Comment on above: Performed By: #### 2 805273, 09869559, 1211447, 3313661, 0743090, 3910161 #### [facility] [address] [place] [address] Neutro Absolute 3.8 E9/L Normal 2.0-7.5 [facility] Comment on above: Performed By: #### 2 219321, 80671265, 1811943, 2837963, 6780824, 2079267 #### [facility] [address] [place], [place] [address] Neutro Auto 57.3 % Normal 36.0-75.0 [facility] Comment on above: Performed By: #### 2 990631, 95258079, 9956533, 5064980, 7636296, 9036321 #### [facility] [address] [place] [address] Platelet 186.0 E9/L Normal 150.0-500.0 [facility] Comment on above: Performed By: #### 2 595870, 24670920, 1583105, 4159076, 4663246, 7950347 #### [facility] [address] [place] [address] Platelet mean volume (Bld) [Entitic vol] 8.0 fL Normal 6.4-10.8 [facility] Comment on above: Performed By: #### 2 886224, 20321138, 2505022, 3935598, 0931716, 0737948 #### [facility] [address] [place] [address] RBC 4.1 E12/L Low 4.3-5.9 [facility] Comment on above: Performed By: #### 2 945672, 96272014, 4411276, 1557962, 0590070, 8471940 #### [facility] [address] [place] [address] WBC 6.6 E9/L Normal 4.0-11.0 [facility] Comment on above: Performed By: #### 2 607827, 83576843, 3366423, 3785131, 9614876, 2214314 #### [facility] [address] [place] [address] CHEMISTRYOrdered By: SYSTEM SYSTEM on 09-17-2023 Anion [...] 79 mg/dL Normal 55 - 99 mg/dL [facility] POC Subsection Comment on above: Result Comment: Neli cain RN/ POC Device SN [id number] 1 Invalid Interpretation Code [facility] POC Subsection POC User ID [id number] 1 Invalid Interpretation Code [facility] POC Subsection POC Username ZIGGY HOLGUIN Invalid Interpretation Code [facility] POC Subsection CNPNon 09-17-2023 CNPN Normal [facility] COAGULATIONOrdered By: Han Frost on 09-17-2023 aPTT Coag (PPP) [Time] 38.2 s High 25.1 - 36.5 second(s) [facility] Auto Coag Comment on above: Interpretive Data: [...] the same coagulation reagent and instrumentation as [facility]. Currently there are no coagulation studies available worldwide for children to 14 days, and no normal ranges. Heparin therapeutic range (represented by Anti-Factor Xa activity of 0.2 - 0.4 U/mL) corresponds to PTT of 56.6 - 109.0 sec. INR Coag (PPP) [Relative time] 1.4 {INR} Invalid Interpretation Code [facility] Auto Coag Comment on above: Interpretive Data: I NR results are specifically intended to assess patients stabilized on long-term Anticoagulation therapy suggested INR s Less Intensive Anticoagulation 2.0 3.0 Conventional Range 3.0 4.5 PT Coag (PPP) [Time] 16.4 s High 9.4 - 1 2.5 second(s) [facility] Auto Coag Comment on above: Interpretive Data: [...] the same coagulation reagent and instrumentation as [facility]. Currently there are no coagulation studies available worldwide for children to 14 days, and no normal ranges. Capillary Glucose POCon Glucose [Mass/Vol] 79 mg/dL Normal 55-99 [facility] Comment on above: Result Comment: Neli cain RN/ Performed By: #### 2 [id number] ####[facility] [address] [place] [address] Consent for Treatmenton Consent for Treatment [id number]#1 .00TIFF Normal [facility] Discharge Instructionson Discharge Instructions [id number]# 1.00TIFF Normal [facility] ED Clinical Summaryon 2023 ED Clinical Summary [address] [address] ED Clinical Summary Person Information Name: HARJIT ASENCIO I Patricia/[facility] Age: 73 Years : 1950 Sex: Female Language: Citizen Of [place] PCP: Aravind MCMAHON, Peggy Mcmillan Marital Status: [...] 09/17/2023 06:16:25 09/17/2023 06:16:25 09/17/2023 06:16:25 ADDRESS: [address] [place] [id number] PHYS DOC NOTES: MEDICAL INFORMATION: Prescriptions Given: [...] Address: When: Peggy Nazario [address] [place] [address] Business (1) In 3 days DIAGNOSIS: Acid reflux; Medication reaction Normal [facility] ED Note-Physicianon 09-17-19 ED Note-Physician Basic [...] and Complexity of Problems Differential Diagnosis: [] [facility] Data External documents reviewed: N/A My [...] Peggy Nazario In 3 days [address] [place] [address]- Business (1) Additional Instructions: Patient Education Drug [...] (02/01/2019), C (more content not included)... Normal [facility] Comment on above: Result Comment: Elec [...] vinegar, hot sauces, and barbecue sauce. ? [place] fruit juices and citrus fruits, such as oranges, ronald, and limes. ? Tomato-based foods, such as red sauce, chili, salsa, and pizza with red sauce. ? Fried and fatty foods, such as donuts, algerian fries, potato chips, and high-fat dressings. ? [...] your health care provider. Medicines ? Take vdwp-zeg-sshirqe and prescription medicines only as told by [...] by your health care provider. ? Take ofhr-djb-kphlxgw and prescription medicines only as told by [...] provider. Document Revised: 02/03/2021 Document Reviewed: 02/03/2021 OneTouch Patient Education ? 2022 jellyfish. Pharmacology Drug Allergy A drug allergy happens when the body's disease-fighting system (immune system) reacts badly to a medicine. Drug allergies range from mild to severe. A drug allergy is not the same as a medicine side effect, which is a known possible reaction to the drug. A drug allergy is a (more content not included)... Normal [facility] ED Patient Summaryon 024 ED Patient Summary [place] [id number] Patient Discharge Instructions Person Information Name: HARJIT ASENCIO I Age: 73 Years Arrival Date: 09/17/2023 04:55:16 Discharge Diagnosis: Acid reflux; Medication reaction Primary Care Physician: Peggy Nazario MD Provider Information Primary Provider: Parveen Ayers DO Advanced Payloader Operator:None The exam and treatment you received in the Emergency Department were for an urgent problem and are not intended as complete care. It is important that you follow up with a doctor, nurse practitioner, or physician?s geriatric assistant for ongoing care. If your symptoms [...] Instructions: With: Address: When: Peggy Nazario [email or web address] [address] Business (1) In 3 days In the event that this physician does not participate in your insurance network, please consult with your insurance company to find a nearby participating provider. Patient Education Materials: Drug Allergy; Heartburn A MESSAGE TO ALL PATIENTS REGARDING OPIOIDS PRESCRIPTION OPIOIDS: WHAT YOU NEED TO KNOW Prescription opioids can be used to help relieve hmurtvch-uw-mmovxd pain and are often prescribed following a [...] be struggling with addiction, tell your health before and after school daycare worker and ask for guidance or call [facility] National Helpline at 3-532-523-RPKP. v Source: [place] Department of Health and (more content not included)... Normal [facility] HEMATOLOGYOrdered By: SYSTEM SYSTEM on 09-17-2023 [...] Normal 80.0 - 100.0 fL Remisol Heme [place] Absolute 0.6 E9/L Normal 0.2 - 1.0 [...] Remisol Heme Monitor Recordon 09-17-2023 Monitor Record [id number]# 1.00TIFF Normal [facility] PT & PTTon 09-17-2023 aPTT Coag (PPP) [Time] 38.2 second(s) High 25.1-36.5 [facility] Comment on above: Result Comment: Para [...] the same coagulation reagent and instrumentation as [facility]. Currently there are no coagulation studies available worldwide for children to 14 days, and no normal ranges. Heparin therapeutic range (represented by Anti-Factor Xa activity of 0.2 - 0.4 U/mL) corresponds to PTT of 56.6 - 109.0 sec. Performed By: #### 2 599597, 12199536, 0892714, 8548463, 0961291, 2006506 #### [facility] [address] [place] [address] INR Coag (PPP) [Relative time] 1.4 {INR} Invalid Interpretation Code [facility] Comment on above: Result Comment: INR results are specifically intended to assess patients stabilized on long-term Anticoagulation therapy suggested INR?s ?Less Intensive Anticoagulation? 2.0 ? 3.0 Conventional Range 3.0 ? 4.5 Performed By: #### 2 663552, 72153593, 8522468, 0122980, 9180010, 4520159 #### [facility] [address] [place] [address] PT Coag (PPP) [Time] 16.4 second(s) High 9.4-12.5 [facility] Comment on above: Result Comment: 15 [...] were obtained from a study by Roel Altheimer, et al. prepared from 1437 samples obtained at 7 different centers using the same coagulation reagent and instrumentation as [facility]. Currently there are no coagulation studies available worldwide for children to 14 days, and no normal ranges. Performed By: #### 2 886108, 41141252, 2192588, 4297361, 0548568, 1252756 #### [facility] [address] [place] [address] Troponin 0 Hr.on 09-17-2023 Troponin 11.70 pg/mL Normal 10.10-27.10 [facility] Comment on above: Result Comment: The 95% CI (Confidence Interval) PPV (Positive Predictive Value) for myocardial infarction in females is 38 pg/mL, in males 51 pg/mL. The results should be used in conjunction with clinical conditions of myocardial infarction. (Access High Sensitivity Troponin I Instructions For Use, Celletra, March 2018) Performed By: #### 2 100352, 79282544, 6115952, 5044117, 0219295, 7036405 #### [facility] [address] [place] [address] XR Chest Single Viewon 09-17 XR Chest [...] mGy = na DAP = na Normal [facility] eGFRon 09-17-2023 eGFR 90 mL/min/1.73 m2 Normal >=59 [facility] Comment on above: Order Comment: Order added by Discern Expert. Performed By: #### 2 801703, 27555897, 5689733, 5463331, 4341368, 0175835 #### [facility] [address] [place] [address] BMPon 09-12-2023 Anion gap [Moles/Vol] 12 mmol/L Normal 6-16 [facility] Comment on above: Performed By: #### 2 389024, 22396358, 7623138, 8369786, 7422057, 8741642 #### [facility] [address] [place] [address] BUN/Creat Ratio 27 No Units High 10-20 [facility] Comment on above: Performed By: #### 2 176128, 69293998, 8773068, 8471676, 8596076, 2715983 #### [facility] [address] [place] [address] Calcium [Mass/Vol] 9.5 mg/dL Normal 8.9-11.1 [facility] Comment on above: Performed By: #### 2 235328, 35038587, 0791110, 6299580, 4171604, 0771455 #### [facility] [address] [place] [address] Chloride [Moles/Vol] 101 mmol/L Normal 101-111 [facility] Comment on above: Performed By: #### 2 240390, 89126908, 3392989, 8998049, 6407642, 3362638 #### [facility] [address] [place] [address] CO2 [Moles/Vol] 27 mmol/L Normal 21-31 [facility] Comment on above: Performed By: #### 2 438664, 05985829, 7032641, 2316562, 9299422, 5556974 #### [facility] [address] [place] [address] Creatinine [Mass/Vol] 0.9 mg/dL Normal 0.5-1.3 [facility] Comment on above: Performed By: #### 2 791716, 87360216, 2969130, 0411655, 0473977, 2483028 #### [facility] [address] [place] [address] Glucose [Mass/Vol] 87 mg/dL Normal 55-199 [facility] Comment on above: Performed By: #### 2 254498, 58544428, 6137998, 1638803, 1823806, 1427122 #### [facility] [address] [place] [address] Potassium [Moles/Vol] 4.9 mmol/L Normal 3.5-5.3 [facility] Comment on above: Performed By: #### 2 517400, 74366734, 5070887, 5214238, 3086265, 2681703 #### [facility] [address] [place] [address] Sodium [Moles/Vol] 135 mmol/L Normal 135-145 [facility] Comment on above: Performed By: #### 2 342880, 38923835, 2917727, 6899953, 0319251, 3464286 #### [facility] [address] [place] [address] Urea nitrogen [Mass/Vol] 24 mg/dL High 5-21 [facility] Comment on above: Performed By: #### 2 620141, 69342374, 1645590, 4264354, 5782536, 3573050 #### [facility] [address] [place] [address] CBC w/ Auto Diffon 4 Basophil Absolute 0.1 E9/L Normal 0.0-0.2 [facility] Comment on above: Performed By: #### 2 891673, 13678489, 2335769, 0560369, 4698953, 4965499 #### [facility] [address] [place] [address] Basophils/100 WBC (Bld) 1.1 % Normal 0.0-2.0 [facility] Comment on above: Performed By: #### 2 845832, 78651143, 4324789, 5319356, 8328176, 8530651 #### [facility] [address] [place] [address] Eos Absolute 0.1 E9/L Normal 0.0-0.5 [facility] Comment on above: Performed By: #### 2 697982, 14716707, 4605264, 3367167, 9346267, 1473688 #### [facility] [address] [place] [address] Eosinophils/100 WBC (Bld) 1.2 % Normal 0.0-8.0 [facility] Comment on above: Performed By: #### 2 184240, 12666300, 9091679, 7309170, 3502286, 1795724 #### [facility] [address] [place] [address] Erythrocyte distribution width (RBC) [Ratio] 13.7 % Normal 10.9-14.2 [facility] Comment on above: Performed By: #### 2 154580, 32787656, 5017433, 6901719, 6445181, 1675725 #### [facility] [address] [place] [address] Hematocrit (Bld) [Volume fraction] 41.0 % Normal 34.0-46.0 [facility] Comment on above: Performed By: #### 2 652509, 91478075, 0890438, 0841637, 7233065, 7831574 #### [facility] [address] [place] [address] Hemoglobin (Bld) [Mass/Vol] 13.4 g/dL Normal 12.0-16.0 [facility] Comment on above: Performed By: #### 2 753464, 90237092, 6288038, 0133429, 8895769, 1622426 #### [facility] [address] [place] [address] Lymph Absolute 1.9 E9/L Normal 1.0-4.0 [facility] Comment on above: Performed By: #### 2 353768, 25760905, 3365682, 9099186, 4616934, 4188827 #### [facility] [address] [place] [address] Lymphocytes/100 WBC (Bld) 25.9 % Normal 14.0-50.0 [facility] Comment on above: Performed By: #### 2 816112, 93466076, 5609617, 3607751, 2584524, 0276024 #### [facility] [address] [place] [address] MCH (RBC) [Entitic mass] 29.5 pg Normal 27.0-34.0 [facility] Comment on above: Performed By: #### 2 038146, 34830782, 6383683, 0956946, 5582562, 6445466 #### [facility] [address] [place] [address] MCHC (RBC) [Mass/Vol] 32.9 g/dL Normal 31.4-36.0 [facility] Comment on above: Performed By: #### 2 566056, 38047653, 4135797, 2161341, 5294504, 1044002 #### [facility] [address] [place] [address] MCV (RBC) [Entitic vol] 89.6 fL Normal 80.0-100.0 [facility] Comment on above: Performed By: #### 2 062280, 20934379, 8197152, 8496480, 3007861, 1609089 #### [facility] [address] [place] [address] [place] Absolute 0.6 E9/L Normal 0.2-1.0 [facility] Comment on above: Performed By: #### 2 794864, 96011596, 8426268, 1882712, 6435335, 2196499 #### [facility] [address] [place] [address] Monocytes/100 WBC (Bld) 8.0 % Normal 4.0-14.0 [facility] Comment on above: Performed By: #### 2 232336, 12969140, 4504319, 4410508, 7215580, 5754458 #### [facility] [address] [place] [address] Neutro Absolute 4.7 E9/L Normal 2.0-7.5 [facility] Comment on above: Performed By: #### 2 559908, 52647176, 5834752, 7152604, 3408839, 8807966 #### [facility] [address] [place] [address] Neutro Auto 63.8 % Normal 36.0-75.0 [facility] Comment on above: Performed By: #### 2 343311, 00096081, 2718015, 4255460, 0830175, 8126839 #### [facility] [address] [place] [address] Platelet 214.0 E9/L Normal 150.0-500.0 [facility] Comment on above: Performed By: #### 2 916475, 92594411, 5857250, 8413706, 7667905, 4045596 #### [facility] [address] [place] [address] Platelet mean volume (Bld) [Entitic vol] 8.2 fL Normal 6.4-10.8 [facility] Comment on above: Performed By: #### 2 418126, 39974652, 1727999, 7175135, 0205015, 2901392 #### [facility] [address] [place] [address] RBC 4.6 E12/L Normal 4.3-5.9 [facility] Comment on above: Performed By: #### 2 015795, 78250481, 7606296, 7790395, 0522295, 9256693 #### [facility] [address] [place] [address] WBC 7.4 E9/L Normal 4.0-11.0 [facility] Comment on above: Performed By: #### 2 746388, 63081892, 3436279, 5944385, 5808205, 0628469 #### [facility] [address] [place] [address] CHEMISTRYOrdered By: Maryan Frost on 09-12-2023 U [...] Sensitivity Troponin I Instructions For Use, Marlys Eldridge, March 2018) Urea nitrogen [Mass/Vol] 24 mg/dL High 5 - 21 mg/dL Remisol Chem Urea nitrogen/Creatinine [Mass ratio] 27 mg/mg High 10 - 20 Rem[facility] Chem CHEMISTRYOrdered By: Lab ROP User on 09-12-2023 Glucose [Mass/Vol] 96 mg/dL Normal 55 - 99 mg/dL [facility] POC Subsection Comment on above: Result Comment: Neli PIÑA POC Device SN [id number] 1 Invalid Interpretation Code [facility] POC Subsection POC User ID [id number] 1 Invalid Interpretation Code [facility] POC Subsection POC Username CORINNE COTA Invalid Interpretation Code [facility] POC Subsection CNPNon 09-12-2023 CNPN Normal [facility] CT Head or Brain w/o Contras ton [...] Technologist: JON Technical Comments Contrast: None Normal [facility] Capillary Glucose POCon 08-16 Glucose [Mass/Vol] 96 mg/dL Normal 55-99 [facility] Comment on above: Result Comment: Neli PIÑA Performed By: #### 2 007148, 94104920, 5664931, 4859388, 4664182, 8074019 #### [facility] [address] [place] [address] Consent for Treatmenton 08-16 Consent for Treatment [id number] .00TIFF Normal [facility] Discharge Instructionson Discharge Instructions [id number]#1 .00TIFF Normal [facility] ED Clinical Summaryon 2023 ED Clinical Summary [place] [id number] ED Clinical Summary Person Information Name: HARJIT ASENCIO/[place] Age: 73 Years : 1950 Sex: Female Language: Citizen Of [place] PCP: Aravind MCMAHON, Peggy Mcmillan Marital Status: [...] 09/12/2023 06:47:40 09/12/2023 06:47:40 09/12/2023 06:47:40 ADDRESS: [address] [place] [address] [address] [facility] [id number] PHYS DOC NOTES: MEDICAL INFORMATION: Prescriptions Given: [...] Address: When: Peggy Nazario [address] [place] [address] [employer] (2Pounce In 3 days DIAGNOSIS: Acid reflux; Tremor Normal [facility] ED Note-Physicianon 09-12-19 ED Note-Physician Basic [...] and Complexity of Problems Differential Diagnosis: [] [facility] Data External documents reviewed: N/A My [...] Information Peggy Nazario In 3 days [address] [email or web address] [address] [employer] (1) Additional Instructions: Patient Education Tremor Gastroesophageal [...] urethral stri (more content not included)... Normal [facility] Comment on above: Result Comment: Elec [...] vinegar, hot sauces, and barbecue sauce. ? [place] fruit juices and citrus fruits, such as oranges, ronald, and limes. ? Tomato-based foods, such as red sauce, chili, salsa, and pizza with red sauce. ? Fried and fatty foods, such as donuts, algerian fries, potato chips, and high-fat dressings. ? [...] [place] (more content not included)... Normal [facility] ED Patient Summaryon 024 ED Patient Summary [address] [address] Patient Discharge Instructions Person Information Name: HARJIT ASENCIO I Age: 73 Years Arrival Date: 09/12/2023 04:02:15 Discharge Diagnosis: Acid reflux; Tremor Primary Care Physician: Peggy Nazario MD Provider Information Primary Provider: Parveen Ayers DO Advanced Payloader Operator:None The exam and treatment you received in the Emergency Department were for an urgent problem and are not intended as complete care. It is important that you follow up with a doctor, nurse practitioner, or physician?s geriatric assistant for ongoing care. If your symptoms [...] Address: When: Peggy Nazario [address] [place] [address] Business (1) In 3 days In the event that this physician does not participate in your insurance network, please consult with your insurance company to find a nearby participating provider. Patient Education Materials: Tremor; Gastroesophageal Reflux Disease, Adult A MESSAGE TO ALL PATIENTS REGARDING OPIOIDS PRESCRIPTION OPIOIDS: WHAT YOU NEED TO KNOW Prescription opioids can be used to help relieve qzbknrxt-oh-xvazci pain and are often prescribed following a [...] be struggling with addiction, tell your health before and after school daycare worker and ask for guidance or call [facility]?S National Helpline at 2-347-268-PVVG. a Source: Department of (more content not included)... Normal [facility] HEMATOLOGYOrdered By: SYSTEM SYSTEM on 09-12-2023 [...] Normal 80.0 - 100.0 fL Remisol Heme [place] Absolute 0.6 E9/L Normal 0.2 - 1.0 [...] Remisol Heme Monitor Recordon 09-12-2023 Monitor Record [id number]# 1.00TIFF Normal [facility] Troponin 0 Hr.on 09-12-2023 Troponin 12.70 pg/mL Normal 10.10-27.10 [facility] Comment on above: Result Comment: The 95% CI (Confidence Interval) PPV (Positive Predictive Value) for myocardial infarction in females is 38 pg/mL, in males 51 pg/mL. The results should be used in conjunction with clinical conditions of myocardial infarction. (Access High Sensitivity Troponin I Instructions For Use, Marlys Eldridge, March 2018) Performed By: #### 2 826698, 84152452, 9817456, 5420952, 7598422, 7834643 #### [facility] [address] [place] [address] U Drug Screenon 09-12-2023 U Amph Scr Negative Invalid Interpretation Code [facility] Comment on above: Performed By: #### 2 689395, 39694266, 9413673, 2359460, 4697236, 9781869 #### [facility] [address] [place] [address] U Hayley Scr Negative Invalid Interpretation Code [facility] Comment on above: Performed By: #### 2 253098, 21776876, 0691099, 0018516, 2882321, 6812133 #### [facility] [address] [place] [address] U Benzodia Scr Negative Invalid Interpretation Code [facility] Comment on above: Performed By: #### 2 196720, 06715942, 5207969, 7161194, 2429741, 7723182 #### [facility] [address] [place] [address] U Cannab Scr Negative Invalid Interpretation Code [facility] Comment on above: Performed By: #### 2 498824, 81456570, 2736787, 1333959, 5475748, 3548758 #### [facility] [address] [place] [address] U Cocaine Scr Negative Invalid Interpretation Code [facility] Comment on above: Performed By: #### 2 055241, 79644039, 2621015, 8476563, 6985028, 9678611 #### [facility] [address] [place] [address] U Opiate Scr Negative Invalid Interpretation Code [facility] Comment on above: Performed By: #### 2 520328, 67706102, 4222938, 7410825, 2932593, 9676666 #### [facility] [address] [place] [address] U PCP Scr Negative Invalid Interpretation Code [facility] Comment on above: Performed By: #### 2 423884, 42607954, 3263361, 5250227, 6346242, 8938529 #### [facility] [address] [place] [address] UA With Cult Reflexon 2023 Bilirubin Ql (U) Negative Normal Negative [facility] Comment on above: Performed By: #### 1 [id number] #### [facility] [address] [place] [address] Clarity (U) CLEAR Normal Clear [facility] Comment on above: Performed By: #### 1 [id number] #### [facility] [address] [place] [address] Color (U) STRAW Invalid Interpretation Code [facility] Comment on above: Performed By: #### 1 [id number] #### [facility] [address] [place] [address] Epithelial cells.squamous LM.HPF (Urine sed) [#/Area] 0-2 Normal 0-2 [facility] Comment on above: Performed By: #### 1 [id number] #### [facility] [address] [place] [address] Glucose Test strip (U) [Mass/Vol] Negative Normal Negative [facility] Comment on above: Performed By: #### 1 [id number] #### [facility] [address] [place] [address] Hemoglobin Ql (U) 1+ Abnormal Negative [facility] Comment on above: Performed By: #### 1 [id number] #### [facility] [address] [place] [address] Ketones (U) [Mass/Vol] Negative Normal Negative [facility] Comment on above: Performed By: #### 1 [id number] #### [facility] [address] [place] [address] [place].plasma/Lithiu m.RBC (Bld) [Mass ratio] 0-3 Normal 0-3 [facility] Comment on above: Performed By: #### 1 [id number] #### [facility] [address] [place] [address] Nitrite Ql (U) Negative Normal Negative [facility] Comment on above: Performed By: #### 1 [id number] #### [facility] [address] [place] [address] pH (U) 7.0 [pH] Invalid Interpretation Code 5.0-9.0 [facility] Comment on above: Performed By: #### 1 [id number] #### [facility] [address] [place] [address] Protein (U) [Mass/Vol] Negative Normal Negative [facility] Comment on above: Performed By: #### 1 [id number] #### [facility] [address] [place] [address] Specific gravity (U) [Rel density] <=1.005 Invalid Interpretation Code 1.005-1.030 [facility] Comment on above: Performed By: #### 1 1125417 #### [facility] [address] [place] [address] Type of Urine collection method Clean Catch Normal [facility] Comment on above: Performed By: #### 1 [id number] #### [facility] [address] [place] [address] Urobilinogen Qn (U) 0.2 {Judith'U}/dL Normal 0.0-1.0 [facility] Comment on above: Performed By: #### 1 5857437 #### [facility] [address] [place] [address] WBC Auto Ql (U) TRACE Abnormal Negative [facility] Comment on above: Performed By: #### 1 [id number] #### [facility] [address] [place] [address] WBC LM.HPF (Urine sed) [#/Area] 0-5 Normal 0-5 [facility] Comment on above: Performed By: #### 1 [id number] #### [facility] [address] [place] [address] URINALYSISOrdered By: Ethan Frost on 09-12-2023 Bilirubin [...] AM) Normal Negative [facility] UA Auto SS [place].plasma/Lithiu m.RBC (Bld) [Mass ratio] 0-3 /HPF Normal [...] Desc Clean Catch (09/12/23 4:53 AM) Normal [facility] UA Auto SS Urobilinogen Qn (U) 0.2603779 {Judith'U}/dL Normal 0.0 - 1.0 EU/dL [facility] [...] mGy = na DAP = na Normal [facility] eGFRon 09-12-2023 eGFR 66 mL/min/1.73 m2 Normal >=59 [facility] Comment on above: Order Comment: Order Added by Discern Expert. Performed By: #### 2 [id number], [id number], [id number], [id number], 5814086, [id number] #### [facility] [address] [place] [id number] CNPNon 09-07-2023 CNPN Normal [facility] CNPNon 09-01-2023 CNPN Normal [facility] CBC panel Auto (Bld)on 08-31 Erythrocyte distribution width (RBC) [Ratio] 12.9 % Normal 11.5-15.0 [facility] Comment on above: Order Comment: Speci men Type: BLOOD SPECIMENOrdering Facility: [facility] Address: [address] [place] [address] Performed By: #### 5 8410-2 ####[facility] [id number] [place] [address] [place] Hematocrit (Bld) [Volume fraction] 36.1 % Normal 36.0-46.0 [facility] Comment on above: Order Comment: Speci men Type: BLOOD SPECIMENOrdering Facility: [facility] Address: [address] [place] [address] Performed By: #### 5 8410-2 ####[facility] [id number] [place] [address] [place] Hemoglobin (Bld) [Mass/Vol] 11.9 g/dL Normal 11.5-15.5 [facility] Comment on above: Order Comment: Speci men Type: BLOOD SPECIMENOrdering Facility: [facility] Address: [address] [place] [address] Performed By: #### 5 8410-2 ####[facility] [id number] [place] [address] [place] MCH (RBC) [Entitic mass] 29.5 pg Normal 26.0-34.0 [facility] Comment on above: Order Comment: Speci men Type: BLOOD SPECIMENOrdering Facility: [facility] Address: [address] [place] [address] Performed By: #### 5 8410-2 ####[facility]CL[facility] [id number] [place] [address] [place] MCHC (RBC) [Mass/Vol] 33.0 g/dL Normal 30.5-36.0 [facility] Comment on above: Order Comment: Speci men Type: BLOOD SPECIMENOrdering Facility: [facility] Address: [address] [place] [address] Performed By: #### 5 8410-2 ####[facility] [id number] [place] [address] [place] MCV (RBC) [Entitic vol] 89.4 fL Normal 80.0-100.0 [facility] Comment on above: Order Comment: Speci men Type: BLOOD SPECIMENOrdering Facility: [facility] Address: [address] [place] [address] Performed By: #### 5 8410-2 ####[facility] [id number] [place] [address] [place] Nucleated RBC (Bld) [#/Vol] 10*3/uL Normal <0.01 [facility] Comment on above: Order Comment: Speci men Type: BLOOD SPECIMENOrdering Facility: [facility] Address: [address] [place] [address] Performed By: #### 5 8410-2 ####[facility] LABCL[facility] [id number] [place] [address] [place] Platelet mean volume (Bld) [Entitic vol] 10.2 fL Normal 9.0-12.7 [facility] Comment on above: Order Comment: Speci men Type: BLOOD SPECIMENOrdering Facility: [facility] Address: [address] [place] [address] Performed By: #### 5 8410-2 ####[facility]CL[facility] [id number] [place] [address] [place] Platelets (Bld) [#/Vol] 175 10*3/uL Normal 150-400 [facility] Comment on above: Order Comment: Speci men Type: BLOOD SPECIMENOrdering Facility: [facility] Address: [address] [place] [address] Performed By: #### 5 8410-2 ####[facility] LABCLIA [id number] [place] [address] [place] RBC (Bld) [#/Vol] 4.04 10*6/uL Normal 3.90-5.20 [facility] Comment on above: Order Comment: Speci men Type: BLOOD SPECIMENOrdering Facility: [facility] Address: [address] [place] [address] Performed By: #### 5 8410-2 ####[facility] LABCL[facility] [id number] [place] [address] [place] WBC (Bld) [#/Vol] 6.11 10*3/uL Normal 3.70-11.00 [facility] Comment on above: Order Comment: Speci men Type: BLOOD SPECIMENOrdering Facility: [facility] Address: [address] [place] [address] Performed By: #### 5 8410-2 ####[facility] [id number] [place] [address] [place] CNDSon 08-31-2023 CNDS Normal [facility] Comprehensive metabolic 2000 panelon 08-31-2023 Albumin [Mass/Vol] 3.5 g/dL Low 3.9-4.9 [facility] Comment on above: Order Comment: Speci men Type: BLOOD SPECIMENOrdering Facility: [facility] Address: [address] [place] [address] Performed By: #### 1 23-9, ####[facility] LABCLIA [id number] [address] [address] [place] ALP [Catalytic activity/Vol] 52 U/L Normal 34-123 [facility] Comment on above: Order Comment: Speci men Type: BLOOD SPECIMENOrdering Facility: [facility] Address: [address] [place] [address] Performed By: #### 1 23-9, ####[facility] LABCLIA [id number] [place] [address] [place] ALT [Catalytic activity/Vol] 24 U/L Normal 7-38 [facility] Comment on above: Order Comment: Speci men Type: BLOOD SPECIMENOrdering Facility: [facility] Address: [address] [place] [address] Performed By: #### 1 9, ####[facility] [id number] [place] [address] [place] Anion gap [Moles/Vol] 9 mmol/L Normal 9-18 [facility] Comment on above: Order Comment: Speci men Type: BLOOD SPECIMENOrdering Facility: [facility] Address: [address] [place] [address] Performed By: #### 1 239, ####[facility]CL[facility] [id number] [place] [address] [place] AST [Catalytic activity/Vol] 20 U/L Normal 13-35 [facility] Comment on above: Order Comment: Speci men Type: BLOOD SPECIMENOrdering Facility: [facility] Address: [address] [place] [id number] Performed By: #### 1 9123-9, ####[facility] LABCLIA [id number] [address] [address] [place] Bilirubin [Mass/Vol] 0.5 mg/dL Normal 0.2-1.3 [facility] Comment on above: Order Comment: Speci men Type: BLOOD SPECIMENOrdering Facility: [facility] Address: [address] [place] [address] Performed By: #### 1 9123-9, ####[facility] LABCL[facility] [id number] [place] [address] [place] Calcium [Mass/Vol] 9.2 mg/dL Normal 8.5-10.2 [facility] Comment on above: Order Comment: Speci men Type: BLOOD SPECIMENOrdering Facility: [facility] Address: [address] [place] [address] Performed By: #### 1 9123-9, ####[facility] LABCLIA [id number] [place] [address] [place] Chloride [Moles/Vol] 103 mmol/L Normal 97-105 [facility] Comment on above: Order Comment: Speci men Type: BLOOD SPECIMENOrdering Facility: [facility] Address: [address] [place] [address] Performed By: #### 1 9123-9, ####[facility] LABCLIA [id number] [place] [address] [place] CO2 [Moles/Vol] 25 mmol/L Normal 22-30 [facility] Comment on above: Order Comment: Speci men Type: BLOOD SPECIMENOrdering Facility: [facility] Address: [address] [place] [address] Performed By: #### 1 9123-9, ####[facility]CL[facility] [id number] [place] [address] [place] Creatinine [Mass/Vol] 0.90 mg/dL Normal 0.58-0.96 [facility] Comment on above: Order Comment: Speci men Type: BLOOD SPECIMENOrdering Facility: [facility] Address: [address] [place] [address] Performed By: #### 1 9123-9, 48704-3 ####[facility]CL[facility] [id number] [place] [address] [place] Creatinine and Glomerular filtration rate.predicted panel (S/P/Bld) 67 mL/min/1.73m??? Normal >=60 [facility] Comment on above: Order Comment: Nichole becrera Type: BLOOD SPECIMENOrdering Facility: [facility] Address: [address] [place] [address] Result Comment: Shelley mated Glomerular Filtration Rate [...] actual GFR. Performed By: #### 1 9123-9, 71543-6 ####[facility]CL[facility] [id number] [place] [address] [place] Glucose [Mass/Vol] 85 mg/dL Normal 74-99 [facility] Comment on above: Order Comment: Nichole becerra Type: BLOOD SPECIMENOrdering Facility: [facility] Address: [address] [place] [address] Result Comment: The [place] Diabetes Association (ADA) provides guidance for cutoff [...] Standards of Medical Care in Diabetes 2016, [place] [employer]. Diabetes Care. 2016.39(Suppl 1). Performed By: #### 1 9123-9, 53469-8 ####[facility]CL[facility] [id number] [place] [address] [place] Potassium [Moles/Vol] 4.3 mmol/L Normal 3.7-5.1 [facility] Comment on above: Order Comment: Speci men Type: BLOOD SPECIMENOrdering Facility: [facility] Address: [address] [place] [address] Performed By: #### 1 9123-9, ####[facility]CL[facility] [id number] [place] [address] [place] Protein [Mass/Vol] 5.9 g/dL Low 6.3-8.0 [facility] Comment on above: Order Comment: Speci men Type: BLOOD SPECIMENOrdering Facility: [facility] Address: [address] [place] [address] Performed By: #### 1 23-9, ####[facility]CL[facility] [id number] [place] [address] [place] Sodium [Moles/Vol] 137 mmol/L Normal 136-144 [facility] Comment on above: Order Comment: Speci men Type: BLOOD SPECIMENOrdering Facility: [facility] Address: [address] [place] [address] Performed By: #### 1 239, 97347-9 ####[facility]CL[facility] [id number] [address] [address] [place] Urea nitrogen [Mass/Vol] 16 mg/dL Normal 7-21 [facility] Comment on above: Order Comment: Speci men Type: BLOOD SPECIMENOrdering Facility: [facility] Address: [address] [place] [address] Performed By: #### 1 9123-9, 45705-6 ####[facility]CLIA [id number] [place] [address] [place] Magnesium SerPl-mCncon 08-31 Magnesium [Mass/Vol] 2.2 mg/dL Normal 1.7-2.3 [facility] Comment on above: Order Comment: Speci men Type: BLOOD SPECIMENOrdering Facility: [facility] Address: [place] [address] Performed By: #### 1 9123-9, 33328-6 ####[facility]CL[facility] [id number] [place] [address] [place] NUTRITIONon 08-31-2023 NUTRITION Normal [facility] PT EDon 08-31-2023 PT ED Normal [facility] PT ED Normal [facility] FEMALE PELVIS TRANSABD LT Don 08-31-2023 FEMALE PELVIS TRANSABD LTD Normal [facility] FEMALE PELVIS TRANSVAGon 08-31-2023 FEMALE PELVIS TRANSVAG Normal [facility] CBC panel Auto (Bld)on 08-30 Erythrocyte distribution width (RBC) [Ratio] 13.1 % Normal 11.5-15.0 [facility] Comment on above: Order Comment: Speci men Type: BLOOD SPECIMENOrdering Facility: [facility] Address: [place] [address] Performed By: #### 5 8410-2 ####[facility]CL[facility] [id number] [place] [address] [place] Hematocrit (Bld) [Volume fraction] 38.9 % Normal 36.0-46.0 [facility] Comment on above: Order Comment: Speci men Type: BLOOD SPECIMENOrdering Facility: [facility] Address: [place] [address] Performed By: #### 5 8410-2 ####[facility] LABCLIA [id number] [place] [address] [place] Hemoglobin (Bld) [Mass/Vol] 12.6 g/dL Normal 11.5-15.5 [facility] Comment on above: Order Comment: Speci men Type: BLOOD SPECIMENOrdering Facility: [facility] Address: [address] [place] [address] Performed By: #### 5 8410-2 ####[facility] [id number] [place] [address] [place] MCH (RBC) [Entitic mass] 29.9 pg Normal 26.0-34.0 [facility] Comment on above: Order Comment: Speci men Type: BLOOD SPECIMENOrdering Facility: [facility] Address: [address] [place] [address] Performed By: #### 5 8410-2 ####[facility] [id number] [place] [address] [place] MCHC (RBC) [Mass/Vol] 32.4 g/dL Normal 30.5-36.0 [facility] Comment on above: Order Comment: Speci men Type: BLOOD SPECIMENOrdering Facility: [facility] Address: [address] [place] [address] Performed By: #### 5 8410-2 ####[facility] [id number] [place] [address] [place] MCV (RBC) [Entitic vol] 92.2 fL Normal 80.0-100.0 [facility] Comment on above: Order Comment: Speci men Type: BLOOD SPECIMENOrdering Facility: [facility] Address: [address] [place] [address] Performed By: #### 5 8410-2 ####[facility] [id number] [place] [address] [place] Nucleated RBC (Bld) [#/Vol] 10*3/uL Normal <0.01 [facility] Comment on above: Order Comment: Speci men Type: BLOOD SPECIMENOrdering Facility: [facility] Address: [address] [place] [address] Performed By: #### 5 8410-2 ####[facility]CL[facility] [id number] [place] [address] [place] Platelet mean volume (Bld) [Entitic vol] 10.4 fL Normal 9.0-12.7 [facility] Comment on above: Order Comment: Speci men Type: BLOOD SPECIMENOrdering Facility: [facility] Address: [address] [place] [address] Performed By: #### 5 8410-2 ####[facility] LABCL[facility] [id number] [place] [address] [place] Platelets (Bld) [#/Vol] 185 10*3/uL Normal 150-400 [facility] Comment on above: Order Comment: Speci men Type: BLOOD SPECIMENOrdering Facility: [facility] Address: [address] [place] [address] Performed By: #### 5 8410-2 ####[facility] [id number] [place] [address] [place] RBC (Bld) [#/Vol] 4.22 10*6/uL Normal 3.90-5.20 [facility] Comment on above: Order Comment: Speci men Type: BLOOD SPECIMENOrdering Facility: [facility] Address: [address] [place] [address] Performed By: #### 5 8410-2 ####[facility]IA [id number] [place] [address] [place] WBC (Bld) [#/Vol] 6.51 10*3/uL Normal 3.70-11.00 [facility] Comment on above: Order Comment: Speci men Type: BLOOD SPECIMENOrdering Facility: [facility] Address: [address] [place] [address] Performed By: #### 5 8410-2 ####[facility]IA [id number] [place] [id number] [place] CNCOon 08-30-2023 CNCO Letter Text Normal [facility] CONSULT PROGon 08-30-2023 CONSULT PROG Normal [facility] Comprehensive metabolic 2000 panelon 08-30-2023 Albumin [Mass/Vol] 3.9 g/dL Normal 3.9-4.9 [facility] Comment on above: Order Comment: Speci men Type: BLOOD SPECIMENOrdering Facility: [facility] Address: [address] [place] [address] Performed By: #### 1 9123-9, 26598-7 ####[facility] LABCLIA [id number] [place] [address] [place] ALP [Catalytic activity/Vol] 65 U/L Normal 34-123 [facility] Comment on above: Order Comment: Speci men Type: BLOOD SPECIMENOrdering Facility: [facility] Address: [address] [place] [address] Performed By: #### 1 9123-9, 93427-7 ####[facility] LABCLIA [id number] [place] [id number] [place] ALT [Catalytic activity/Vol] 28 U/L Normal 7-38 [facility] Comment on above: Order Comment: Speci men Type: BLOOD SPECIMENOrdering Facility: [facility] Address: [address] [place], [place] [address] Performed By: #### 1 9123-9, 57229-4 ####[facility] LABCLIA [id number] [place] [address] [place] Anion gap [Moles/Vol] 9 mmol/L Normal 9-18 [facility] Comment on above: Order Comment: Speci men Type: BLOOD SPECIMENOrdering Facility: [facility] Address: [address] [place] [address] Performed By: #### 1 9123-9, 37484-9 ####[facility] LABCLIA [id number] [address] [address] [place] AST [Catalytic activity/Vol] 24 U/L Normal 13-35 [facility] Comment on above: Order Comment: Speci men Type: BLOOD SPECIMENOrdering Facility: [facility] Address: [address] [place] [address] Performed By: #### 1 9123-9, ####[facility] LABCL[facility] [id number] [place] [address] [place] Bilirubin [Mass/Vol] 0.5 mg/dL Normal 0.2-1.3 [facility] Comment on above: Order Comment: Speci men Type: BLOOD SPECIMENOrdering Facility: [facility] Address: [address] [place] [address] Performed By: #### 1 9123-9, ####[facility]CL[facility] [id number] [place] [address] [place] Calcium [Mass/Vol] 9.3 mg/dL Normal 8.5-10.2 [facility] Comment on above: Order Comment: Speci men Type: BLOOD SPECIMENOrdering Facility: [facility] Address: [address] [place] [address] Performed By: #### 1 9123-9, ####[facility] LABCLIA [id number] [place] [address] [place] Chloride [Moles/Vol] 103 mmol/L Normal 97-105 [facility] Comment on above: Order Comment: Speci men Type: BLOOD SPECIMENOrdering Facility: [facility] Address: [address] [place] [address] Performed By: #### 1 9123-9, ####[facility]CL[facility] [id number] [place] [address] [place] CO2 [Moles/Vol] 25 mmol/L Normal 22-30 [facility] Comment on above: Order Comment: Speci men Type: BLOOD SPECIMENOrdering Facility: [facility] Address: [address] [place] [address] Performed By: #### 1 9123-9, ####[facility] LABIA [id number] [place] [address] [place] Creatinine [Mass/Vol] 1.11 mg/dL High 0.58-0.96 [facility] Comment on above: Order Comment: Speci men Type: BLOOD SPECIMENOrdering Facility: [facility] Address: [address] [place] [address] Performed By: #### 1 9123-9, ####[facility] LABIA [id number] [place] [address] [place] Creatinine and Glomerular filtration rate.predicted panel (S/P/Bld) 52 mL/min/1.73m??? Low >=60 [facility] Comment on above: Order Comment: Nichole men Type: BLOOD SPECIMENOrdering Facility: [facility] Address: [address] [place] [address] Result Comment: Shelley mated Glomerular Filtration Rate [...] actual GFR. Performed By: #### 1 9123-9, ####[facility]IA [id number] [place] [address] [place] Glucose [Mass/Vol] 149 mg/dL High 74-99 [facility] Comment on above: Order Comment: Nichole becerra Type: BLOOD SPECIMENOrdering Facility: [facility] Address: [address] [place] [address] Result Comment: The [place] Diabetes Association (ADA) provides guidance for cutoff [...] Standards of Medical Care in Diabetes 2016, [place] Diabetes [employer]. Diabetes Care. 2016.39(Suppl 1). Performed By: #### 1 23-9, ####[facility] LABCLIA [id number] [place] [address] [place] Potassium [Moles/Vol] 5.0 mmol/L Normal 3.7-5.1 [facility] Comment on above: Order Comment: Speci men Type: BLOOD SPECIMENOrdering Facility: [facility] Address: [address] [place] [address] Performed By: #### 1 239, ####[facility] LABCLIA [id number] [place] [address] [place] Protein [Mass/Vol] 6.3 g/dL Normal 6.3-8.0 [facility] Comment on above: Order Comment: Speci men Type: BLOOD SPECIMENOrdering Facility: [facility] Address: [address] [place] [address] Performed By: #### 1 9123-04, ####[facility] LABCLIA [id number] [place] [address] [place] Sodium [Moles/Vol] 137 mmol/L Normal 136-144 [facility] Comment on above: Order Comment: Speci men Type: BLOOD SPECIMENOrdering Facility: [facility] Address: [address] [place] [address] Performed By: #### 1 239, ####[facility] LABCLIA [id number] [place] [address] [place] Urea nitrogen [Mass/Vol] 19 mg/dL Normal 7-21 [facility] Comment on above: Order Comment: Speci men Type: BLOOD SPECIMENOrdering Facility: [facility] Address: [address] [place] [address] Performed By: #### 1 9123-9, 45987-0 ####[facility] LABCLIA [id number] [place] [address] [place] Magnesium SerPl-mCncon 08-30 Magnesium [Mass/Vol] 2.2 mg/dL Normal 1.7-2.3 [facility] Comment on above: Order Comment: Speci men Type: BLOOD SPECIMENOrdering Facility: [facility] Address: [address] [place] [address] Performed By: #### 1 9123-9, 55729-1 ####[facility]IA [id number] [place] [address] [place] NURSING PROGon 08-30-2023 NURSING PROG Normal [facility] NUTRITIONon 08-30-2023 NUTRITION Normal [facility] CBC panel Auto (Bld)on 08-29 Erythrocyte distribution width (RBC) [Ratio] 13.1 % Normal 11.5-15.0 [facility] Comment on above: Order Comment: Speci men Type: BLOOD SPECIMENOrdering Facility: [facility] Address: [address] [place] [address] Performed By: #### 5 8410-2 ####[facility]IA [id number] [address] [place] Hematocrit (Bld) [Volume fraction] 39.4 % Normal 36.0-46.0 [facility] Comment on above: Order Comment: Speci men Type: BLOOD SPECIMENOrdering Facility: [facility] Address: [address] [place] [address] Performed By: #### 5 8410-2 ####[facility]IA [id number] [place] [address] [place] Hemoglobin (Bld) [Mass/Vol] 13.1 g/dL Normal 11.5-15.5 [facility] Comment on above: Order Comment: Speci men Type: BLOOD SPECIMENOrdering Facility: [facility] Address: [address] [place] [address] Performed By: #### 5 8410-2 ####[facility] [id number] [place] [address] [place] MCH (RBC) [Entitic mass] 30.0 pg Normal 26.0-34.0 [facility] Comment on above: Order Comment: Speci men Type: BLOOD SPECIMENOrdering Facility: [facility] Address: [address] [place] [address] Performed By: #### 5 8410-2 ####[facility] [id number] [place] [address] [place] MCHC (RBC) [Mass/Vol] 33.2 g/dL Normal 30.5-36.0 [facility] Comment on above: Order Comment: Speci men Type: BLOOD SPECIMENOrdering Facility: [facility] Address: [address] [place] [address] Performed By: #### 5 8410-2 ####[facility]IA [id number] [place] [address] [place] MCV (RBC) [Entitic vol] 90.4 fL Normal 80.0-100.0 [facility] Comment on above: Order Comment: Speci men Type: BLOOD SPECIMENOrdering Facility: [facility] Address: [address] [place] [address] Performed By: #### 5 8410-2 ####[facility]IA [id number] [place] [address] [place] Nucleated RBC (Bld) [#/Vol] 10*3/uL Normal <0.01 [facility] Comment on above: Order Comment: Speci men Type: BLOOD SPECIMENOrdering Facility: [facility] Address: [address] [place] [address] Performed By: #### 5 8410-2 ####[facility] LABCLIA [id number] [place] [address] [place] Platelet mean volume (Bld) [Entitic vol] 10.5 fL Normal 9.0-12.7 [facility] Comment on above: Order Comment: Speci men Type: BLOOD SPECIMENOrdering Facility: [facility] Address: [address] [place] [address] Performed By: #### 5 8410-2 ####[facility] LABCLIA [id number] [place] [address] [place] Platelets (Bld) [#/Vol] 192 10*3/uL Normal 150-400 [facility] Comment on above: Order Comment: Speci men Type: BLOOD SPECIMENOrdering Facility: [facility] Address: [address] [place] [address] Performed By: #### 5 8410-2 ####[facility] LABCLIA [id number] [place] [address] [place] RBC (Bld) [#/Vol] 4.36 10*6/uL Normal 3.90-5.20 [facility] Comment on above: Order Comment: Speci men Type: BLOOD SPECIMENOrdering Facility: [facility] Address: [address] [place] [address] Performed By: #### 5 8410-2 ####[facility] LABCLIA [id number] [place] [address] [place] WBC (Bld) [#/Vol] 8.00 10*3/uL Normal 3.70-11.00 [facility] Comment on above: Order Comment: Speci men Type: BLOOD SPECIMENOrdering Facility: [facility] Address: [address] [place] [address] Performed By: #### 5 8410-2 ####[facility] LABCLIA [id number] [place] [address] [place] CT FLANK WO IVCONon 08-29-19 CT FLANK WO IVCON Invalid Interpretation Code [facility] metabolic 2000 panelon 08-29-2023 Albumin [Mass/Vol] 3.9 g/dL Normal 3.9-4.9 [facility] Comment on above: Order Comment: Speci men Type: BLOOD SPECIMENOrdering Facility: [facility] Address: [address] [place] [address] Performed By: #### 2 4323-8, ####[facility] LABCLIA [id number] [place] [address] [place] ALP [Catalytic activity/Vol] 58 U/L Normal 34-123 [facility] Comment on above: Order Comment: Speci men Type: BLOOD SPECIMENOrdering Facility: [facility] Address: [address] [place] [address] Performed By: #### 2 4323-8, ####[facility] LABCLIA [id number] [place] [address] [place] ALT [Catalytic activity/Vol] 33 U/L Normal 7-38 [facility] Comment on above: Order Comment: Speci men Type: BLOOD SPECIMENOrdering Facility: [facility] Address: [address] [place] [address] Performed By: #### 2 4323-8, ####[facility] LABCLIA [id number] [place] [id number] [place] Anion gap [Moles/Vol] 10 mmol/L Normal 9-18 [facility] Comment on above: Order Comment: Speci men Type: BLOOD SPECIMENOrdering Facility: [facility] Address: [address] [place] [address] Performed By: #### 2 432-8, ####[facility] LABCLIA [id number] [address] [address] [place] AST [Catalytic activity/Vol] 25 U/L Normal 13-35 [facility] Comment on above: Order Comment: Speci men Type: BLOOD SPECIMENOrdering Facility: [facility] Address: [address] [place] [address] Performed By: #### 2 4323-03, ####[facility] LABCLIA [id number] [place] [address] [place] Bilirubin [Mass/Vol] 0.7 mg/dL Normal 0.2-1.3 [facility] Comment on above: Order Comment: Speci men Type: BLOOD SPECIMENOrdering Facility: [facility] Address: [address] [place] [address] Performed By: #### 2 4323-03, ####[facility] LABCLIA [id number] [place] [address] [place] Calcium [Mass/Vol] 9.0 mg/dL Normal 8.5-10.2 [facility] Comment on above: Order Comment: Speci men Type: BLOOD SPECIMENOrdering Facility: [facility] Address: [address] [place], [place] [address] Performed By: #### 2 4323-03, ####[facility] LABCLIA [id number] [place] [address] [place] Chloride [Moles/Vol] 101 mmol/L Normal 97-105 [facility] Comment on above: Order Comment: Speci men Type: BLOOD SPECIMENOrdering Facility: [facility] Address: [address] [place] [id number] Performed By: #### 2 4328, ####[facility] LABCLIA [id number] [place] [address] [place] CO2 [Moles/Vol] 25 mmol/L Normal 22-30 [facility] Comment on above: Order Comment: Speci men Type: BLOOD SPECIMENOrdering Facility: [facility] Address: [address] [place] [address] Performed By: #### 2 4323-8, ####[facility] LABCLIA [id number] [place] [address] [place] Creatinine [Mass/Vol] 0.87 mg/dL Normal 0.58-0.96 [facility] Comment on above: Order Comment: Speci men Type: BLOOD SPECIMENOrdering Facility: [facility] Address: [address] [place] [address] Performed By: #### 2 43238, ####[facility] LABCLIA [id number] [address] [place] Creatinine and Glomerular filtration rate.predicted panel (S/P/Bld) 70 mL/min/1.73m??? Normal >=60 [facility] Comment on above: Order Comment: Speci men Type: BLOOD SPECIMENOrdering Facility: [facility] Address: [address] [place] [address] Result Comment: Shelley mated Glomerular Filtration Rate [...] actual GFR. Performed By: #### 2 4323-8, ####[facility] LABCLIA [id number] [place] [address] [place] Glucose [Mass/Vol] 85 mg/dL Normal 74-99 [facility] Comment on above: Order Comment: Speci men Type: BLOOD SPECIMENOrdering Facility: [facility] Address: [address] [place] [address] Result Comment: The [place] Diabetes Association (ADA) provides guidance for cutoff [...] Standards of Medical Care in Diabetes 2016, [place] Diabetes Association. Diabetes Care. 2016.39(Suppl 1). Performed By: #### 2 4323-8, ####[facility] LABCLIA [id number] [place] [address] [place] Potassium [Moles/Vol] 4.7 mmol/L Normal 3.7-5.1 [facility] Comment on above: Order Comment: Speci men Type: BLOOD SPECIMENOrdering Facility: [facility] Address: [address] [place] [address] Performed By: #### 2 432-, ####[facility] LABIA [id number] [place] [address] [place] Protein [Mass/Vol] 6.3 g/dL Normal 6.3-8.0 [facility] Comment on above: Order Comment: Speci men Type: BLOOD SPECIMENOrdering Facility: [facility] Address: [address] [place] [address] Performed By: #### 2 4323-, ####[facility] LABCLIA [id number] [place] [address] [place] Sodium [Moles/Vol] 136 mmol/L Normal 136-144 [facility] Comment on above: Order Comment: Speci men Type: BLOOD SPECIMENOrdering Facility: [facility] Address: [address] [place] [id number] Performed By: #### 2 4323-8, 45269-4 ####[facility] LABCLIA [id number] [facility] [place] [id number] [place] Urea nitrogen [Mass/Vol] 15 mg/dL Normal 7-21 [facility] Comment on above: Order Comment: Speci men Type: BLOOD SPECIMENOrdering Facility: [facility] Address: [address] [id number] Performed By: #### 2 4323-8, ####[facility] LABCLIA [id number] [place] [address] [place] DIGOXIN/LANOXINon 08-29-2023 Digoxin [Mass/Vol] 1.0 ng/mL Normal 0.6-1.2 [facility] Comment on above: Order Comment: Speci men Type: BLOOD SPECIMENOrdering Facility: [facility] Address: [address] [facility] [place] [address] Result Comment: Prov ided therapeutic concentrations are based on the 2008 ESC Guidelines for the Diagnosis and Treatment of Acute and Chronic Heart Failure.Reference ranges and high/low indicator flags are provided as general guidelines only. The treating physician must determine appropriate target levels/dosing based on the specific clinical situation. Performed By: #### D IG ####[facility] LABCLIA [id number] [place] [address] [place] Magnesium SerPl-mCncon 08-29 Magnesium [Mass/Vol] 2.2 mg/dL Normal 1.7-2.3 [facility] Comment on above: Order Comment: Speci men Type: BLOOD SPECIMENOrdering Facility: [facility] Address: [address] [place] [id number] Performed By: #### 2 4323-8, ####[facility] LABCLIA [id number] [facility] [place] [id number] [place] NUTRITIONon 08-29-2023 NUTRITION Normal [facility] THYROID PEROXIDASE ANTIBODY BLOODon 08-29-2023 TPO Ab Qn [IU]/mL Normal <5.6 [facility] Comment on above: Order Comment: Speci men Type: BLOOD SPECIMENOrdering Facility: [facility] Address: [address] [place] [address] Result Comment: Thyr oid Peroxidase Antibody test is used as an aid in diagnosis of autoimmune thyroid disease. Clinical correlation is required. Performed By: #### M ICRO ####[facility] LABCLIA [id number] [place] [address] [place] ANES POSTPROC EVALon 024 ANES POSTPROC EVAL Normal [facility] ANES PRE-OPon 08-28-2023 ANES PRE-OP Normal [facility] CASE MANAGEMon 08-28-2023 CASE MANAGEM Normal [facility] CBC panel Auto (Bld)on 08-28 Erythrocyte distribution width (RBC) [Ratio] 13.1 % Normal 11.5-15.0 [facility] Comment on above: Order Comment: Speci men Type: BLOOD SPECIMENOrdering Facility: [facility] Address: [address] [place] [address] Performed By: #### 5 8410-2 ####[facility] LABIA [id number] [place] [address] [place] Hematocrit (Bld) [Volume fraction] 37.8 % Normal 36.0-46.0 [facility] Comment on above: Order Comment: Speci men Type: BLOOD SPECIMENOrdering Facility: [facility] Address: [address] [place] [address] Performed By: #### 5 8410-2 ####[facility]IA [id number] [place] [address] [place] Hemoglobin (Bld) [Mass/Vol] 12.3 g/dL Normal 11.5-15.5 [facility] Comment on above: Order Comment: Speci men Type: BLOOD SPECIMENOrdering Facility: [facility] Address: [address] [place] [address] Performed By: #### 5 8410-2 ####[facility]IA [id number] [place] [address] [place] MCH (RBC) [Entitic mass] 29.5 pg Normal 26.0-34.0 [facility] Comment on above: Order Comment: Speci men Type: BLOOD SPECIMENOrdering Facility: [facility] Address: [address] [place] [address] Performed By: #### 5 8410-2 ####[facility]IA [id number] [place] [address] [place] MCHC (RBC) [Mass/Vol] 32.5 g/dL Normal 30.5-36.0 [facility] Comment on above: Order Comment: Speci men Type: BLOOD SPECIMENOrdering Facility: [facility] Address: [address] [place] [address] Performed By: #### 5 8410-2 ####[facility]IA [id number] [place] [address] [place] MCV (RBC) [Entitic vol] 90.6 fL Normal 80.0-100.0 [facility] Comment on above: Order Comment: Speci men Type: BLOOD SPECIMENOrdering Facility: [facility] Address: [address] [place] [address] Performed By: #### 5 8410-2 ####[facility]IA [id number] [place] [address] [place] Nucleated RBC (Bld) [#/Vol] 10*3/uL Normal <0.01 [facility] Comment on above: Order Comment: Speci men Type: BLOOD SPECIMENOrdering Facility: [facility] Address: [address] [place] [address] Performed By: #### 5 8410-2 ####[facility] LABCLIA [id number] [place] [address] [place] Platelet mean volume (Bld) [Entitic vol] 10.4 fL Normal 9.0-12.7 [facility] Comment on above: Order Comment: Speci men Type: BLOOD SPECIMENOrdering Facility: [facility] Address: [address] [place] [address] Performed By: #### 5 8410-2 ####[facility]IA [id number] [place] [address] [place] Platelets (Bld) [#/Vol] 180 10*3/uL Normal 150-400 [facility] Comment on above: Order Comment: Speci men Type: BLOOD SPECIMENOrdering Facility: [facility] Address: [address] [place] [address] Performed By: #### 5 8410-2 ####[facility] LABCLIA [id number] [place] [address] [place] RBC (Bld) [#/Vol] 4.17 10*6/uL Normal 3.90-5.20 [facility] Comment on above: Order Comment: Speci men Type: BLOOD SPECIMENOrdering Facility: [facility] Address: [address] [place] [address] Performed By: #### 5 8410-2 ####[facility]IA [id number] [place] [address] [place] WBC (Bld) [#/Vol] 6.22 10*3/uL Normal 3.70-11.00 [facility] Comment on above: Order Comment: Speci men Type: BLOOD SPECIMENOrdering Facility: [facility] Address: [address] [place] [address] Performed By: #### 5 8410-2 ####[facility] LABCLIA [id number] [place] [address] [place] CNOVon 08-28-2023 CNOV Normal [facility] CONSULTon 08-28-2023 CONSULT Normal [facility] Comprehensive metabolic 2000 panelon 08-28-2023 Albumin [Mass/Vol] 3.5 g/dL Low 3.9-4.9 [facility] Comment on above: Order Comment: Speci men Type: BLOOD SPECIMENOrdering Facility: [facility] Address: [address] [place] [address] Performed By: #### 2 4323-8, 7 ####[facility] LABCLIA [id number] [place] [address] [place] ALP [Catalytic activity/Vol] 52 U/L Normal 34-123 [facility] Comment on above: Order Comment: Speci men Type: BLOOD SPECIMENOrdering Facility: [facility] Address: [address] [place] [address] Performed By: #### 2 4323-8, 7 ####[facility] LABCLIA [id number] [place] [address] [place] ALT [Catalytic activity/Vol] 31 U/L Normal 7-38 [facility] Comment on above: Order Comment: Speci men Type: BLOOD SPECIMENOrdering Facility: [facility] Address: [address] [place] [address] Performed By: #### 2 4323-8, 7 ####[facility] LABCLIA [id number] [place] [address] [place] Anion gap [Moles/Vol] 10 mmol/L Normal 9-18 [facility] Comment on above: Order Comment: Speci men Type: BLOOD SPECIMENOrdering Facility: [facility] Address: [address] [place] [address] Performed By: #### 2 4323-8, 3023-7 ####[facility] LABCLIA [id number] [place] [id number] [place] AST [Catalytic activity/Vol] 26 U/L Normal 13-35 [facility] Comment on above: Order Comment: Speci men Type: BLOOD SPECIMENOrdering Facility: [facility] Address: [address] [place] [id number] Performed By: #### 2 4323-8, 7 ####[facility] LABCLIA [id number] [place] [address] [place] Bilirubin [Mass/Vol] 0.5 mg/dL Normal 0.2-1.3 [facility] Comment on above: Order Comment: Speci men Type: BLOOD SPECIMENOrdering Facility: [facility] Address: [address] [place] [address] Performed By: #### 2 4323-8, 7 ####[facility] LABCLIA [id number] [place] [address] [place] Calcium [Mass/Vol] 9.5 mg/dL Normal 8.5-10.2 [facility] Comment on above: Order Comment: Speci men Type: BLOOD SPECIMENOrdering Facility: [facility] Address: [address] [place] [address] Performed By: #### 2 4323-8, 7 ####[facility] LABCLIA [id number] [place] [address] [place] [place] Chloride [Moles/Vol] 106 mmol/L High 97-105 [facility] Comment on above: Order Comment: Speci men Type: BLOOD SPECIMENOrdering Facility: [facility] Address: [address] [place] [address] Performed By: #### 2 4323-8, 7 ####[facility] LABCLIA [id number] [place] [id number] [place] CO2 [Moles/Vol] 24 mmol/L Normal 22-30 [facility] Comment on above: Order Comment: Speci men Type: BLOOD SPECIMENOrdering Facility: [facility] Address: [address] [place] [address] Performed By: #### 2 4323-8, 7 ####[facility] LABIA [id number] [address] [address] [place] Creatinine [Mass/Vol] 0.75 mg/dL Normal 0.58-0.96 [facility] Comment on above: Order Comment: Nichole becerra Type: BLOOD SPECIMENOrdering Facility: [facility] Address: [address] [place] [address] Performed By: #### 2 4323-8, 7 ####[facility] LABIA [id number] [place] [address] [place] Creatinine and Glomerular filtration rate.predicted panel (S/P/Bld) 83 mL/min/1.73m??? Normal >=60 [facility] Comment on above: Order Comment: [facility] Type: BLOOD SPECIMENOrdering Facility: [facility] Address: [address] [place] [address] Result Comment: Shelley mated Glomerular Filtration Rate [...] GFR. Performed By: #### 2 4323-8, 7 ####[facility] LABIA [id number] [place] [id number] [place] Glucose [Mass/Vol] 88 mg/dL Normal 74-99 [facility] Comment on above: Order Comment: Speci men Type: BLOOD SPECIMENOrdering Facility: [facility] Address: [address] [place] [address] Result Comment: The [place] Diabetes Association (ADA) provides guidance for cutoff [...] Standards of Medical Care in Diabetes 2016, [place] [employer]. Diabetes Care. 2016.39(Suppl 1). Performed By: #### 2 4323-8, 3024-02 ####[facility] LABCLIA [id number] [place] [address] [place] Potassium [Moles/Vol] 4.6 mmol/L Normal 3.7-5.1 [facility] Comment on above: Order Comment: Speci men Type: BLOOD SPECIMENOrdering Facility: [facility] Address: [address] [place] [address] Performed By: #### 2 4323-8, 3024-02 ####[facility] LABCLIA [id number] [place] [address] [place] Protein [Mass/Vol] 5.9 g/dL Low 6.3-8.0 [facility] Comment on above: Order Comment: Speci men Type: BLOOD SPECIMENOrdering Facility: [facility] Address: [address] [place] [address] Performed By: #### 2 4323-8, 3024-02 ####[facility] LABCLIA [id number] [place] [address] [place] Sodium [Moles/Vol] 140 mmol/L Normal 136-144 [facility] Comment on above: Order Comment: Speci men Type: BLOOD SPECIMENOrdering Facility: [facility] Address: [address] [place] [address] Performed By: #### 2 4323-8, 3024-02 ####[facility] LABCLIA [id number] [address] [address] [place] Urea nitrogen [Mass/Vol] 13 mg/dL Normal 7-21 [facility] Comment on above: Order Comment: Speci men Type: BLOOD SPECIMENOrdering Facility: [facility] Address: [address] [place] [address] Performed By: #### 2 4323-8, 302-7 ####[facility] LABCLIA [id number] [place] [address] [place] [id number] 08-28-2023 ECG01 Normal [facility] ECHO TRANSESOPHAGEALon 08-28 E[facility] TRANSESOPHAGEAL [facility] NURSING PROGon 08-28-2023 NURSING PROG Normal [facility] PT EDon 08-28-2023 PT ED Normal [facility] PT ED Normal [facility] T4 Free SerPl-mCncon 024 Free T4 [Mass/Vol] 1.1 ng/dL Normal 0.9-1.7 [facility] Comment on above: Order Comment: Speci men Type: BLOOD SPECIMENOrdering Facility: [facility] Address: [address] [place] [address] Performed By: #### 2 4323-8, 7 ####[facility] LABCLIA [id number] [place] [address] [place] CBC panel Auto (Bld)on 08-27 Erythrocyte distribution width (RBC) [Ratio] 12.8 % Normal 11.5-15.0 [facility] Comment on above: Order Comment: Speci men Type: BLOOD SPECIMENOrdering Facility: [facility] Address: [address] [place] [address] Performed By: #### 5 8410-2 ####[facility] LABCLIA [id number] [place] [address] [place] Hematocrit (Bld) [Volume fraction] 38.9 % Normal 36.0-46.0 [facility] Comment on above: Order Comment: Speci men Type: BLOOD SPECIMENOrdering Facility: [facility] Address: [address] [place] [address] Performed By: #### 5 8410-2 ####[facility] LABCLIA [id number] [place] [address] [place] Hemoglobin (Bld) [Mass/Vol] 12.7 g/dL Normal 11.5-15.5 [facility] Comment on above: Order Comment: Speci men Type: BLOOD SPECIMENOrdering Facility: [facility] Address: [address] [place] [address] Performed By: #### 5 8410-2 ####[facility] LABIA [id number] [place] [address] [place] MCH (RBC) [Entitic mass] 29.4 pg Normal 26.0-34.0 [facility] Comment on above: Order Comment: Speci men Type: BLOOD SPECIMENOrdering Facility: [facility] Address: [address] [place] [address] Performed By: #### 5 8410-2 ####[facility] LABIA [id number] [place] [address] [place] MCHC (RBC) [Mass/Vol] 32.6 g/dL Normal 30.5-36.0 [facility] Comment on above: Order Comment: Speci men Type: BLOOD SPECIMENOrdering Facility: [facility] Address: [address] [place] [address] Performed By: #### 5 8410-2 ####[facility] LABIA [id number] [place] [address] [place] MCV (RBC) [Entitic vol] 90.0 fL Normal 80.0-100.0 [facility] Comment on above: Order Comment: Speci men Type: BLOOD SPECIMENOrdering Facility: [facility] Address: [address] [place] [address] Performed By: #### 5 8410-2 ####[facility] LABIA [id number] [place] [address] [place] Nucleated RBC (Bld) [#/Vol] 10*3/uL Normal <0.01 [facility] Comment on above: Order Comment: Speci men Type: BLOOD SPECIMENOrdering Facility: [facility] Address: [address] [place] [address] Performed By: #### 5 8410-2 ####[facility] LABCLIA [id number] [place] [address] [place] Platelet mean volume (Bld) [Entitic vol] 10.4 fL Normal 9.0-12.7 [facility] Comment on above: Order Comment: Speci men Type: BLOOD SPECIMENOrdering Facility: [facility] Address: [address] [place] [address] Performed By: #### 5 8410-2 ####[facility] LABCLIA [id number] [place] [address] [place] Platelets (Bld) [#/Vol] 143 10*3/uL Low 150-400 [facility] Comment on above: Order Comment: Speci men Type: BLOOD SPECIMENOrdering Facility: [facility] Address: [address] [place] [address] Performed By: #### 5 8410-2 ####[facility] LABCLIA [id number] [place] [address] [place] RBC (Bld) [#/Vol] 4.32 10*6/uL Normal 3.90-5.20 [facility] Comment on above: Order Comment: Speci men Type: BLOOD SPECIMENOrdering Facility: [facility] Address: [address] [place] [address] Performed By: #### 5 8410-2 ####[facility] LABCLIA [id number] [place] [address] [place] WBC (Bld) [#/Vol] 5.61 10*3/uL Normal 3.70-11.00 [facility] Comment on above: Order Comment: Speci men Type: BLOOD SPECIMENOrdering Facility: [facility] Address: [address] [place] [address] Performed By: #### 5 8410-2 ####[facility] LABCLIA [id number] [address] [address] [place] Comprehensive metabolic 2000 panelon 08-27-2023 Albumin [Mass/Vol] 3.6 g/dL Low 3.9-4.9 [facility] Comment on above: Order Comment: Speci men Type: BLOOD SPECIMENOrdering Facility: [facility] Address: [address] [place] [address] Performed By: #### 2 4323-8, 6-3 ####[facility] LABCLIA [id number] [place] [address] [place] ALP [Catalytic activity/Vol] 59 U/L Normal 34-123 [facility] Comment on above: Order Comment: Speci men Type: BLOOD SPECIMENOrdering Facility: [facility] Address: [address] [place] [address] Performed By: #### 2 4323-8, 6-3 ####[facility] LABCLIA [id number] [address] [place] ALT [Catalytic activity/Vol] 29 U/L Normal 7-38 [facility] Comment on above: Order Comment: Speci men Type: BLOOD SPECIMENOrdering Facility: [facility] Address: [address] [place] [address] Performed By: #### 2 4323-8, 3016-3 ####[facility] LABCLIA [id number] [place] [id number] [place] Anion gap [Moles/Vol] 8 mmol/L Low 9-18 [facility] Comment on above: Order Comment: Speci men Type: BLOOD SPECIMENOrdering Facility: [facility] Address: [address] [place] [id number] Performed By: #### 2 4323, 3016-3 ####[facility] LABCLIA [id number] [address] [address] [place] AST [Catalytic activity/Vol] 27 U/L Normal 13-35 [facility] Comment on above: Order Comment: Speci men Type: BLOOD SPECIMENOrdering Facility: [facility] Address: [address] [place] [address] Performed By: #### 2 4323-8, 3 ####[facility] LABCLIA [id number] [place] [address] [place] Bilirubin [Mass/Vol] 0.5 mg/dL Normal 0.2-1.3 [facility] Comment on above: Order Comment: Speci men Type: BLOOD SPECIMENOrdering Facility: [facility] Address: [address] [place] [address] Performed By: #### 2 43238, 3 ####[facility] LABCLIA [id number] [place] [address] [place] Calcium [Mass/Vol] 9.1 mg/dL Normal 8.5-10.2 [facility] Comment on above: Order Comment: Speci men Type: BLOOD SPECIMENOrdering Facility: [facility] Address: [address] [place] [address] Performed By: #### 2 4323-8, 3 ####[facility] LABCLIA [id number] [place] [id number] [place] Chloride [Moles/Vol] 105 mmol/L Normal 97-105 [facility] Comment on above: Order Comment: Speci men Type: BLOOD SPECIMENOrdering Facility: [facility] Address: [address] [place] [address] Performed By: #### 2 4323-8, 3 ####[facility] LABCLIA [id number] [place] [address] [place] CO2 [Moles/Vol] 27 mmol/L Normal 22-30 [facility] Comment on above: Order Comment: Speci men Type: BLOOD SPECIMENOrdering Facility: [facility] Address: [address] [place] [address] Performed By: #### 2 4323-8, 3015-3 ####[facility] LABCLIA [id number] [place] [address] [place] Creatinine [Mass/Vol] 0.72 mg/dL Normal 0.58-0.96 [facility] Comment on above: Order Comment: Speci men Type: BLOOD SPECIMENOrdering Facility: [facility] Address: [address] [place] [address] Performed By: #### 2 4323-8, 3 ####[facility] LABCLIA [id number] [place] [address] [place] Creatinine and Glomerular filtration rate.predicted panel (S/P/Bld) 87 mL/min/1.73m??? Normal >=60 [facility] Comment on above: Order Comment: Speci men Type: BLOOD SPECIMENOrdering Facility: [facility] Address: [address] [place] [address] Result Comment: Shelley mated Glomerular Filtration Rate [...] GFR. Performed By: #### 2 4323-8, 3015-3 ####[facility] LABCLIA [id number] [place] [address] [place] Glucose [Mass/Vol] 92 mg/dL Normal 74-99 [facility] Comment on above: Order Comment: Speci men Type: BLOOD SPECIMENOrdering Facility: [facility] Address: [address] [place] [address] Result Comment: The [place] Diabetes Association (ADA) provides guidance for cutoff [...] Standards of Medical Care in Diabetes 2016, [place] Diabetes Association. Diabetes Care. 2016.39(Suppl 1). Performed By: #### 2 4323-8, 3015-3 ####[facility] LABCLIA [id number] [place] [address] [place] Potassium [Moles/Vol] 4.7 mmol/L Normal 3.7-5.1 [facility] Comment on above: Order Comment: Speci men Type: BLOOD SPECIMENOrdering Facility: [facility] Address: [address] [place] [address] Performed By: #### 2 4323-8, 3 ####[facility] LABIA [id number] [place] [address] [place] Protein [Mass/Vol] 5.8 g/dL Low 6.3-8.0 [facility] Comment on above: Order Comment: Speci men Type: BLOOD SPECIMENOrdering Facility: [facility] Address: [address] [place] [address] Performed By: #### 2 4323-8, 6-3 ####[facility] LABIA [id number] [place] [id number] [place] Sodium [Moles/Vol] 140 mmol/L Normal 136-144 [facility] Comment on above: Order Comment: Speci men Type: BLOOD SPECIMENOrdering Facility: [facility] Address: [address] [place] [address] Performed By: #### 2 4323-8, 3016-3 ####[facility] LABCLIA [id number] [place] [address] [place] Urea nitrogen [Mass/Vol] 15 mg/dL Normal 7-21 [facility] Comment on above: Order Comment: Speci men Type: BLOOD SPECIMENOrdering Facility: [facility] Address: [address] [place] [address] Performed By: #### 2 4323-8, 3016-3 ####[facility] LABCLIA [id number] [place] [address] [place] TSH SerPl-aCncon 08-27-2023 TSH Qn 9.850 m[IU]/L High 0.270-4.200 [facility] Comment on above: Order Comment: Speci men Type: BLOOD SPECIMENOrdering Facility: [facility] Address: [address] [place] [address] Performed By: #### 2 4323-8, 3016-3 ####[facility] LABIA [id number] [place] [address] [place] Bacteria Ur Culton Bacteria identified Cx Nom (U) Abnormal [facility] Comment on above: Performed By: #### 6 30-4 ####[facility] LABIA [id number] [place] [address] [place] CBC panel Auto (Bld)on 08-26 Erythrocyte distribution width (RBC) [Ratio] 13.1 % Normal 11.5-15.0 [facility] Comment on above: Order Comment: Speci men Type: BLOOD SPECIMENOrdering Facility: [facility] Address: [address] [place] [address] Performed By: #### 5 8410-2 ####[facility] LABIA [id number] [place] [address] [place] Hematocrit (Bld) [Volume fraction] 38.5 % Normal 36.0-46.0 [facility] Comment on above: Order Comment: Speci men Type: BLOOD SPECIMENOrdering Facility: [facility] Address: [address] [place] [address] Performed By: #### 5 8410-2 ####[facility] [id number] [place] [address] [place] Hemoglobin (Bld) [Mass/Vol] 12.8 g/dL Normal 11.5-15.5 [facility] Comment on above: Order Comment: Speci men Type: BLOOD SPECIMENOrdering Facility: [facility] Address: [address] [place] [address] Performed By: #### 5 8410-2 ####[facility] LABS[facility] [id number] [place] [address] [place] MCH (RBC) [Entitic mass] 30.0 pg Normal 26.0-34.0 [facility] Comment on above: Order Comment: Speci men Type: BLOOD SPECIMENOrdering Facility: [facility] Address: [address] [place] [address] Performed By: #### 5 8410-2 ####[facility] LABIA [id number] [place] [address] [place] MCHC (RBC) [Mass/Vol] 33.2 g/dL Normal 30.5-36.0 [facility] Comment on above: Order Comment: Speci men Type: BLOOD SPECIMENOrdering Facility: [facility] Address: [address] [place] [address] Performed By: #### 5 8410-2 ####[facility] LABIA [id number] [place] [address] [place] MCV (RBC) [Entitic vol] 90.4 fL Normal 80.0-100.0 [facility] Comment on above: Order Comment: Speci men Type: BLOOD SPECIMENOrdering Facility: [facility] Address: [address] [place] [address] Performed By: #### 5 8410-2 ####[facility] LABCLIA [id number] [place] [address] [place] Nucleated RBC (Bld) [#/Vol] 10*3/uL Normal <0.01 [facility] Comment on above: Order Comment: Speci men Type: BLOOD SPECIMENOrdering Facility: [facility] Address: [address] [place] [address] Performed By: #### 5 8410-2 ####[facility] LABIA [id number] [place] [address] [place] Platelet mean volume (Bld) [Entitic vol] 10.6 fL Normal 9.0-12.7 [facility] Comment on above: Order Comment: Speci men Type: BLOOD SPECIMENOrdering Facility: [facility] Address: [address] [place] [address] Performed By: #### 5 8410-2 ####[facility] LABIA [id number] [place] [address] [place] Platelets (Bld) [#/Vol] 168 10*3/uL Normal 150-400 [facility] Comment on above: Order Comment: Speci men Type: BLOOD SPECIMENOrdering Facility: [facility] Address: [address] [place] [address] Performed By: #### 5 8410-2 ####[facility] LABIA [id number] [place] [address] [place] RBC (Bld) [#/Vol] 4.26 10*6/uL Normal 3.90-5.20 [facility] Comment on above: Order Comment: Speci men Type: BLOOD SPECIMENOrdering Facility: [facility] Address: [address] [place] [address] Performed By: #### 5 8410-2 ####[facility] LABCLIA [id number] [place] [address] [place] WBC (Bld) [#/Vol] 7.27 10*3/uL Normal 3.70-11.00 [facility] Comment on above: Order Comment: Speci men Type: BLOOD SPECIMENOrdering Facility: [facility] Address: [address] [place] [address] Performed By: #### 5 8410-2 ####[facility] LABCLIA [id number] [place] [address] [place] CONSULTon 08-26-2023 CONSULT Normal [facility] metabolic 2000 panelon 08-26-2023 Albumin [Mass/Vol] 3.5 g/dL Low 3.9-4.9 [facility] Comment on above: Order Comment: Speci men Type: BLOOD SPECIMENOrdering Facility: [facility] Address: [address] [place] [address] Performed By: #### 2 4323-8 ####[facility] LABCLIA [id number] [place] [address] [place] ALP [Catalytic activity/Vol] 60 U/L Normal 34-123 [facility] Comment on above: Order Comment: Speci men Type: BLOOD SPECIMENOrdering Facility: [facility] Address: [address] [place] [address] Performed By: #### 2 4323-8 ####[facility] LABCLIA [id number] [place] [address] [place] ALT [Catalytic activity/Vol] 25 U/L Normal 7-38 [facility] Comment on above: Order Comment: Speci men Type: BLOOD SPECIMENOrdering Facility: [facility] Address: [address] [place] [address] Performed By: #### 2 4323-8 ####[facility] LABCLIA [id number] [place] [address] [place] Anion gap [Moles/Vol] 10 mmol/L Normal 9-18 [facility] Comment on above: Order Comment: Speci men Type: BLOOD SPECIMENOrdering Facility: [facility] Address: [address] [place] [address] Performed By: #### 2 4323-8 ####[facility] LABCLIA [id number] [place] [address] [place] AST [Catalytic activity/Vol] 22 U/L Normal 13-35 [facility] Comment on above: Order Comment: Speci men Type: BLOOD SPECIMENOrdering Facility: [facility] Address: [address] [place] [address] Performed By: #### 2 4323-8 ####[facility] LABCLIA [id number] [place] [address] [place] Bilirubin [Mass/Vol] 0.4 mg/dL Normal 0.2-1.3 [facility] Comment on above: Order Comment: Speci men Type: BLOOD SPECIMENOrdering Facility: [facility] Address: [address] [place] [address] Performed By: #### 2 4323-8 ####[facility] LABCLIA [id number] [place] [address] [place] Calcium [Mass/Vol] 8.9 mg/dL Normal 8.5-10.2 [facility] Comment on above: Order Comment: Speci men Type: BLOOD SPECIMENOrdering Facility: [facility] Address: [address] [place] [address] Performed By: #### 2 4323-8 ####[facility] LABCLIA [id number] [place] [address] [place] Chloride [Moles/Vol] 104 mmol/L Normal 97-105 [facility] Comment on above: Order Comment: Speci men Type: BLOOD SPECIMENOrdering Facility: [facility] Address: [address] [place] [address] Performed By: #### 2 4323-8 ####[facility] LABCLIA [id number] [place] [address] [place] [place] CO2 [Moles/Vol] 26 mmol/L Normal 22-30 [facility] Comment on above: Order Comment: Speci men Type: BLOOD SPECIMENOrdering Facility: [facility] Address: [address] [place] [address] Performed By: #### 2 4323-8 ####[facility] LABCLIA [id number] [place] [address] [place] Creatinine [Mass/Vol] 0.84 mg/dL Normal 0.58-0.96 [facility] Comment on above: Order Comment: Speci men Type: BLOOD SPECIMENOrdering Facility: [facility] Address: [address] [place] [address] Performed By: #### 2 4323-8 ####[facility] LABIA [id number] [place] [address] [place] Creatinine and Glomerular filtration rate.predicted panel (S/P/Bld) 73 mL/min/1.73m??? Normal >=60 [facility] Comment on above: Order Comment: Speci men Type: BLOOD SPECIMENOrdering Facility: [facility] Address: [address] [place] [address] Result Comment: Shelley mated Glomerular Filtration Rate [...] actual GFR. Performed By: #### 2 4323-8 ####[facility] LABIA [id number] [place] [address] [place] Glucose [Mass/Vol] 93 mg/dL Normal 74-99 [facility] Comment on above: Order Comment: Speci men Type: BLOOD SPECIMENOrdering Facility: [facility] Address: [address] [place] [address] Result Comment: The [place] Diabetes Association (ADA) provides guidance for cutoff [...] Standards of Medical Care in Diabetes 2016, [place] [employer]. Diabetes Care. 2016.39(Suppl 1). Performed By: #### 2 4323-8 ####[facility] LABCLIA [id number] [place] [address] [place] Potassium [Moles/Vol] 4.4 mmol/L Normal 3.7-5.1 [facility] Comment on above: Order Comment: Speci men Type: BLOOD SPECIMENOrdering Facility: [facility] Address: [address] [place] [address] Performed By: #### 2 4323-8 ####[facility] LABCLIA [id number] [place] [address] [place] Protein [Mass/Vol] 5.7 g/dL Low 6.3-8.0 [facility] Comment on above: Order Comment: Speci men Type: BLOOD SPECIMENOrdering Facility: [facility] Address: [address] [place] [address] Performed By: #### 2 4323-8 ####[facility] LABCLIA [id number] [place] [address] [place] Sodium [Moles/Vol] 140 mmol/L Normal 136-144 [facility] Comment on above: Order Comment: Speci men Type: BLOOD SPECIMENOrdering Facility: [facility] Address: [address] [place] [address] Performed By: #### 2 4323-8 ####[facility] LABCLIA [id number] [place] [address] [place] Urea nitrogen [Mass/Vol] 19 mg/dL Normal 7-21 [facility] Comment on above: Order Comment: Speci men Type: BLOOD SPECIMENOrdering Facility: [facility] Address: [address] [place] [address] Performed By: #### 2 4323-8 ####[facility] LABIA [id number] [place] [address] [place] CASE MGT INIT ASSESon 2023 CASE MGT INIT ASSES Normal [facility] CBC panel Auto (Bld)on 08-25 Erythrocyte distribution width (RBC) [Ratio] 12.9 % Normal 11.5-15.0 [facility] Comment on above: Order Comment: Speci men Type: BLOOD SPECIMENOrdering Facility: [facility] Address: [address] [place] [address] Performed By: #### 5 8410-2 ####[facility] LABIA [id number] [place] [address] [place] Hematocrit (Bld) [Volume fraction] 37.8 % Normal 36.0-46.0 [facility] Comment on above: Order Comment: Speci men Type: BLOOD SPECIMENOrdering Facility: [facility] Address: [address] [place] [address] Performed By: #### 5 8410-2 ####[facility] LABIA [id number] [place] [address] [place] Hemoglobin (Bld) [Mass/Vol] 12.8 g/dL Normal 11.5-15.5 [facility] Comment on above: Order Comment: Speci men Type: BLOOD SPECIMENOrdering Facility: [facility] Address: [address] [place] [address] Performed By: #### 5 8410-2 ####[facility] LABIA [id number] [place] [address] [place] MCH (RBC) [Entitic mass] 29.9 pg Normal 26.0-34.0 [facility] Comment on above: Order Comment: Speci men Type: BLOOD SPECIMENOrdering Facility: [facility] Address: [address] [place] [address] Performed By: #### 5 8410-2 ####[facility] LABIA [id number] [place] [address] [place] MCHC (RBC) [Mass/Vol] 33.9 g/dL Normal 30.5-36.0 [facility] Comment on above: Order Comment: Speci men Type: BLOOD SPECIMENOrdering Facility: [facility] Address: [address] [place] [address] Performed By: #### 5 8410-2 ####[facility] [id number] [place] [address] [place] MCV (RBC) [Entitic vol] 88.3 fL Normal 80.0-100.0 [facility] Comment on above: Order Comment: Speci men Type: BLOOD SPECIMENOrdering Facility: [facility] Address: [address] [place] [address] Performed By: #### 5 8410-2 ####[facility] [id number] [place] [address] [place] Nucleated RBC (Bld) [#/Vol] 10*3/uL Normal <0.01 [facility] Comment on above: Order Comment: Speci men Type: BLOOD SPECIMENOrdering Facility: [facility] Address: [address] [place] [address] Performed By: #### 5 8410-2 ####[facility] [id number] [place] [address] [place] Platelet mean volume (Bld) [Entitic vol] 10.1 fL Normal 9.0-12.7 [facility] Comment on above: Order Comment: Speci men Type: BLOOD SPECIMENOrdering Facility: [facility] Address: [address] [place] [address] Performed By: #### 5 8410-2 ####[facility] LABCLIA [id number] [place] [address] [place] Platelets (Bld) [#/Vol] 173 10*3/uL Normal 150-400 [facility] Comment on above: Order Comment: Speci men Type: BLOOD SPECIMENOrdering Facility: [facility] Address: [address] [place] [address] Performed By: #### 5 8410-2 ####[facility] LABCLIA [id number] [place] [address] [place] RBC (Bld) [#/Vol] 4.28 10*6/uL Normal 3.90-5.20 [facility] Comment on above: Order Comment: Speci men Type: BLOOD SPECIMENOrdering Facility: [facility] Address: [address] [place] [address] Performed By: #### 5 8410-2 ####[facility] LABCLIA [id number] [place] [address] [place] WBC (Bld) [#/Vol] 6.38 10*3/uL Normal 3.70-11.00 [facility] Comment on above: Order Comment: Speci men Type: BLOOD SPECIMENOrdering Facility: [facility] Address: [address] [place] [address] Performed By: #### 5 8410-2 ####[facility] LABCLIA [id number] [place] [address] [place] Comprehensive metabolic 2000 panelon 08-25-2023 Albumin [Mass/Vol] 3.4 g/dL Low 3.9-4.9 [facility] Comment on above: Order Comment: Speci men Type: BLOOD SPECIMENOrdering Facility: [facility] Address: [address] [place] [address] Performed By: #### 1 9123-9, ####[facility] LABCLIA [id number] [place] [address] [place] ALP [Catalytic activity/Vol] 48 U/L Normal 34-123 [facility] Comment on above: Order Comment: Speci men Type: BLOOD SPECIMENOrdering Facility: [facility] Address: [address] [place] [address] Performed By: #### 1 23-9, ####[facility] LABCLIA [id number] [place] [address] [place] ALT [Catalytic activity/Vol] 26 U/L Normal 7-38 [facility] Comment on above: Order Comment: Speci men Type: BLOOD SPECIMENOrdering Facility: [facility] Address: [address] [place] [address] Performed By: #### 1 23-9, ####[facility] LABCLIA [id number] [place] [address] [place] Anion gap [Moles/Vol] 10 mmol/L Normal 9-18 [facility] Comment on above: Order Comment: Speci men Type: BLOOD SPECIMENOrdering Facility: [facility] Address: [address] [place] [address] Performed By: #### 1 239, ####[facility] LABCLIA [id number] [place] [address] [place] AST [Catalytic activity/Vol] 23 U/L Normal 13-35 [facility] Comment on above: Order Comment: Speci men Type: BLOOD SPECIMENOrdering Facility: [facility] Address: [address] [place] [address] Performed By: #### 1 9123-9, 18013-6 ####[facility] LABCLIA [id number] [place] [address] [place] Bilirubin [Mass/Vol] 0.9 mg/dL Normal 0.2-1.3 [facility] Comment on above: Order Comment: Speci men Type: BLOOD SPECIMENOrdering Facility: [facility] Address: [address] [place] [address] Performed By: #### 1 9123-9, ####[facility] LABCLIA [id number] [place] [address] [place] Calcium [Mass/Vol] 9.0 mg/dL Normal 8.5-10.2 [facility] Comment on above: Order Comment: Speci men Type: BLOOD SPECIMENOrdering Facility: [facility] Address: [address] [place] [address] Performed By: #### 1 9123-9, ####[facility] LABCLIA [id number] [place] [address] [place] Chloride [Moles/Vol] 97 mmol/L Normal 97-105 [facility] Comment on above: Order Comment: Speci men Type: BLOOD SPECIMENOrdering Facility: [facility] Address: [address] [place] [address] Performed By: #### 1 23-9, ####[facility] LABCLIA [id number] [place] [address] [place] CO2 [Moles/Vol] 29 mmol/L Normal 22-30 [facility] Comment on above: Order Comment: Speci men Type: BLOOD SPECIMENOrdering Facility: [facility] Address: [address] [place] [address] Performed By: #### 1 23-9, ####[facility] LABCLIA [id number] [place] [id number] [place] Creatinine [Mass/Vol] 1.02 mg/dL High 0.58-0.96 [facility] Comment on above: Order Comment: Nichole becerra Type: BLOOD SPECIMENOrdering Facility: [facility] Address: [address] [place] [address] Performed By: #### 1 9123-9, 84712-0 ####[facility] LABCLIA [id number] [place] [address] [place] Creatinine and Glomerular filtration rate.predicted panel (S/P/Bld) 57 mL/min/1.73m??? Low >=60 [facility] Comment on above: Order Comment: Nichole becerra Type: BLOOD SPECIMENOrdering Facility: [facility] Address: [address] [place] [address] Result Comment: Shelley mated Glomerular Filtration Rate [...] actual GFR. Performed By: #### 1 9123-9, 46081-3 ####[facility] LABCLIA [id number] [place] [address] [place] Glucose [Mass/Vol] 84 mg/dL Normal 74-99 [facility] Comment on above: Order Comment: Nichole becerra Type: BLOOD SPECIMENOrdering Facility: [facility] Address: [address] [place] [address] Result Comment: The [place] Diabetes Association (ADA) provides guidance for cutoff [...] Standards of Medical Care in Diabetes 2016, [place] Diabetes Association. Diabetes Care. 2016.39(Suppl 1). Performed By: #### 1 9123-9, 76919-5 ####[facility] LABIA [id number] [place] [address] [place] Potassium [Moles/Vol] 3.4 mmol/L Low 3.7-5.1 [facility] Comment on above: Order Comment: Speci men Type: BLOOD SPECIMENOrdering Facility: [facility] Address: [address] [place] [address] Performed By: #### 1 9123-9, 49585-4 ####[facility] LABIA [id number] [place] [address] [place] Protein [Mass/Vol] 5.7 g/dL Low 6.3-8.0 [facility] Comment on above: Order Comment: Speci men Type: BLOOD SPECIMENOrdering Facility: [facility] Address: [address] [place] [address] Performed By: #### 1 239, 80129-1 ####[facility] LABIA [id number] [place] [address] [place] Sodium [Moles/Vol] 136 mmol/L Normal 136-144 [facility] Comment on above: Order Comment: Speci men Type: BLOOD SPECIMENOrdering Facility: [facility] Address: [address] [place] [address] Performed By: #### 1 23-9, 77486-4 ####[facility] LABIA [id number] [place] [address] [place] Urea nitrogen [Mass/Vol] 22 mg/dL High 7-21 [facility] Comment on above: Order Comment: Speci men Type: BLOOD SPECIMENOrdering Facility: [facility] Address: [address] [place] [address] Performed By: #### 1 23-9, 13354-2 ####[facility] LABCLIA [id number] [address] [address] [place] Magnesium SerPl-mCncon 08-25 Magnesium [Mass/Vol] 2.2 mg/dL Normal 1.7-2.3 [facility] Comment on above: Order Comment: Speci men Type: BLOOD SPECIMENOrdering Facility: [facility] Address: [address] [place] [address] Performed By: #### 1 9123-9, 00154-7 ####[facility] LABIA [id number] [place] [id number] [place] POTASSIUM BLDon 08-25-2023 Potassium [Moles/Vol] 4.3 mmol/L Normal 3.7-5.1 [facility] Comment on above: Order Comment: Speci men Type: BLOOD SPECIMENOrdering Facility: [facility] Address: [address] [place] [address] Performed By: #### K 1 ####[facility] [id number] [place] [id number] [place] US KIDNEY/BLADDERon 08-25-19 24 US KIDNEY/BLADDER Normal [facility] CBC W Auto Differential pane l (Bld)on 08-24-2023 Basophils (Bld) [#/Vol] 0.03 10*3/uL Normal <0.11 [facility] Comment on above: Order Comment: Speci men Type: BLOOD SPECIMENOrdering Facility: [facility] Address: [address] [place] [address] Performed By: #### 5 7021-8 ####[facility] LABIA [id number] [place] [id number] [place] Basophils/100 WBC (Bld) 0.4 % Normal [facility] Comment on above: Order Comment: Speci men Type: BLOOD SPECIMENOrdering Facility: [facility] Address: [address] [place] [address] Performed By: #### 5 7021-8 ####[facility] LABCLIA [id number] [place] [address] [place] Differential cell count method Nom (Bld) Auto Normal [facility] Comment on above: Order Comment: Speci men Type: BLOOD SPECIMENOrdering Facility: [facility] Address: [address] [place] [address] Performed By: #### 5 7021-8 ####[facility] LABCLIA [id number] [place] [address] [place] Eosinophils (Bld) [#/Vol] 0.03 10*3/uL Normal <0.46 [facility] Comment on above: Order Comment: Speci men Type: BLOOD SPECIMENOrdering Facility: [facility] Address: [address] [place] [address] Performed By: #### 5 7021-8 ####[facility] LABCLIA [id number] [place] [address] [place] Eosinophils/100 WBC (Bld) 0.4 % Normal [facility] Comment on above: Order Comment: Speci men Type: BLOOD SPECIMENOrdering Facility: [facility] Address: [address] [place] [address] Performed By: #### 5 7021-8 ####[facility] LABCLIA [id number] [place] [address] [place] Erythrocyte distribution width (RBC) [Ratio] 12.7 % Normal 11.5-15.0 [facility] Comment on above: Order Comment: Speci men Type: BLOOD SPECIMENOrdering Facility: [facility] Address: [address] [place] [address] Performed By: #### 5 7021-8 ####[facility] LABCLIA [id number] [place] [address] [place] Hematocrit (Bld) [Volume fraction] 40.4 % Normal 36.0-46.0 [facility] Comment on above: Order Comment: Speci men Type: BLOOD SPECIMENOrdering Facility: [facility] Address: [address] [place] [address] Performed By: #### 5 7021-8 ####[facility] LABIA [id number] [place] [address] [place] Hemoglobin (Bld) [Mass/Vol] 13.2 g/dL Normal 11.5-15.5 [facility] Comment on above: Order Comment: Speci men Type: BLOOD SPECIMENOrdering Facility: [facility] Address: [address] [place] [address] Performed By: #### 5 7021-8 ####[facility] LABIA [id number] [place] [address] [place] Immature granulocytes (Bld) [#/Vol] 10*3/uL Normal <0.10 [facility] Comment on above: Order Comment: Speci men Type: BLOOD SPECIMENOrdering Facility: [facility] Address: [address] [place] [address] Performed By: #### 5 7021-8 ####[facility] LABIA [id number] [place] [address] [place] Immature granulocytes/100 WBC (Bld) 0.3 % Normal [facility] Comment on above: Order Comment: Speci men Type: BLOOD SPECIMENOrdering Facility: [facility] Address: [address] [place] [address] Performed By: #### 5 7021-8 ####[facility] LABIA [id number] [place] [address] [place] Lymphocytes (Bld) [#/Vol] 1.73 10*3/uL Normal 1.00-4.00 [facility] Comment on above: Order Comment: Speci men Type: BLOOD SPECIMENOrdering Facility: [facility] Address: [address] [place] [address] Performed By: #### 5 7021-8 ####[facility] LABCLIA [id number] [place] [address] [place] Lymphocytes/100 WBC (Bld) 23.4 % Normal [facility] Comment on above: Order Comment: Speci men Type: BLOOD SPECIMENOrdering Facility: [facility] Address: [address] [place] [address] Performed By: #### 5 7021-8 ####[facility] LABCLIA [id number] [place] [address] [place] MCH (RBC) [Entitic mass] 29.3 pg Normal 26.0-34.0 [facility] Comment on above: Order Comment: Speci men Type: BLOOD SPECIMENOrdering Facility: [facility] Address: [address] [place] [address] Performed By: #### 5 7021-8 ####[facility] LABIA [id number] [place] [address] [place] MCHC (RBC) [Mass/Vol] 32.7 g/dL Normal 30.5-36.0 [facility] Comment on above: Order Comment: Speci men Type: BLOOD SPECIMENOrdering Facility: [facility] Address: [address] [place] [address] Performed By: #### 5 7021-8 ####[facility] LABIA [id number] [place] [address] [place] MCV (RBC) [Entitic vol] 89.8 fL Normal 80.0-100.0 [facility] Comment on above: Order Comment: Speci men Type: BLOOD SPECIMENOrdering Facility: [facility] Address: [address] [place] [address] Performed By: #### 5 7021-8 ####[facility] LABCLIA [id number] [place] [address] [place] Monocytes (Bld) [#/Vol] 0.77 10*3/uL Normal <0.87 [facility] Comment on above: Order Comment: Speci men Type: BLOOD SPECIMENOrdering Facility: [facility] Address: [address] [place] [address] Performed By: #### 5 7021-8 ####[facility] LABCLIA [id number] [place] [address] [place] Monocytes/100 WBC (Bld) 10.4 % Normal [facility] Comment on above: Order Comment: Speci men Type: BLOOD SPECIMENOrdering Facility: [facility] Address: [address] [place] [address] Performed By: #### 5 7021-8 ####[facility] LABCLIA [id number] [place] [address] [place] Neutrophils (Bld) [#/Vol] 4.82 10*3/uL Normal 1.45-7.50 [facility] Comment on above: Order Comment: Speci men Type: BLOOD SPECIMENOrdering Facility: [facility] Address: [address] [place] [address] Performed By: #### 5 7021-8 ####[facility] LABCLIA [id number] [place] [address] [place] Neutrophils/100 WBC (Bld) 65.1 % Normal [facility] Comment on above: Order Comment: Speci men Type: BLOOD SPECIMENOrdering Facility: [facility] Address: [address] [place] [address] Performed By: #### 5 7021-8 ####[facility] LABCLIA [id number] [place] [address] [place] Nucleated RBC (Bld) [#/Vol] 10*3/uL Normal <0.01 [facility] Comment on above: Order Comment: Speci men Type: BLOOD SPECIMENOrdering Facility: [facility] Address: [address] [place] [address] Performed By: #### 5 7021-8 ####[facility] LABCLIA [id number] [place] [address] [place] Nucleated RBC/100 WBC (Bld) [Ratio] 0.0 /100 WBC Normal [facility] Comment on above: Order Comment: Speci men Type: BLOOD SPECIMENOrdering Facility: [facility] Address: [address] [place] [address] Performed By: #### 5 7021-8 ####[facility] LABCLIA [id number] [place] [address] [place] Platelet mean volume (Bld) [Entitic vol] 10.4 fL Normal 9.0-12.7 [facility] Comment on above: Order Comment: Speci men Type: BLOOD SPECIMENOrdering Facility: [facility] Address: [address] [place] [address] Performed By: #### 5 7021-8 ####[facility] LABCLIA [id number] [place] [address] [place] Platelets (Bld) [#/Vol] 201 10*3/uL Normal 150-400 [facility] Comment on above: Order Comment: Speci men Type: BLOOD SPECIMENOrdering Facility: [facility] Address: [address] [place] [address] Performed By: #### 5 7021-8 ####[facility] LABCLIA [id number] [place] [address] [place] RBC (Bld) [#/Vol] 4.50 10*6/uL Normal 3.90-5.20 [facility] Comment on above: Order Comment: Speci men Type: BLOOD SPECIMENOrdering Facility: [facility] Address: [address] [place] [address] Performed By: #### 5 7021-8 ####[facility] LABCLIA [id number] [place] [address] [place] WBC (Bld) [#/Vol] 7.40 10*3/uL Normal 3.70-11.00 [facility] Comment on above: Order Comment: Speci men Type: BLOOD SPECIMENOrdering Facility: [facility] Address: [address] [place] [address] Performed By: #### 5 7021-8 ####[facility] LABCLIA [id number] [place] [address] [place] CNPNon 08-24-2023 CNPN Normal [facility] metabolic 2000 panelon 08-24-2023 Albumin [Mass/Vol] 3.8 g/dL Low 3.9-4.9 [facility] Comment on above: Order Comment: Speci men Type: BLOOD SPECIMENOrdering Facility: [facility] Address: [address] [place] [address] Performed By: #### 2 4323-8 ####[facility] LABCLIA [id number] [place] [address] [place] ALP [Catalytic activity/Vol] 61 U/L Normal 34-123 [facility] Comment on above: Order Comment: Speci men Type: BLOOD SPECIMENOrdering Facility: [facility] Address: [address] [place] [address] Performed By: #### 2 4323-8 ####[facility] LABCLIA [id number] [place] [address] [place] ALT [Catalytic activity/Vol] 34 U/L Normal 7-38 [facility] Comment on above: Order Comment: Speci men Type: BLOOD SPECIMENOrdering Facility: [facility] Address: [address] [place] [address] Performed By: #### 2 4323-8 ####[facility] LABCLIA [id number] [place] [address] [place] Anion gap [Moles/Vol] 8 mmol/L Low 9-18 [facility] Comment on above: Order Comment: Speci men Type: BLOOD SPECIMENOrdering Facility: [facility] Address: [address] [place] [address] Performed By: #### 2 4323-8 ####[facility] LABCLIA [id number] [place] [address] [place] AST [Catalytic activity/Vol] 27 U/L Normal 13-35 [facility] Comment on above: Order Comment: Speci men Type: BLOOD SPECIMENOrdering Facility: [facility] Address: [address] [place] [address] Performed By: #### 2 4323-8 ####[facility] LABCLIA [id number] [place] [address] [place] Bilirubin [Mass/Vol] 0.7 mg/dL Normal 0.2-1.3 [facility] Comment on above: Order Comment: Speci men Type: BLOOD SPECIMENOrdering Facility: [facility] Address: [address] [place] [address] Performed By: #### 2 4323-8 ####[facility] LABCLIA [id number] [place] [address] [place] Calcium [Mass/Vol] 9.2 mg/dL Normal 8.5-10.2 [facility] Comment on above: Order Comment: Speci men Type: BLOOD SPECIMENOrdering Facility: [facility] Address: [address] [place] [address] Performed By: #### 2 4323-8 ####[facility] LABCLIA [id number] [place] [address] [place] Chloride [Moles/Vol] 97 mmol/L Normal 97-105 [facility] Comment on above: Order Comment: Speci men Type: BLOOD SPECIMENOrdering Facility: [facility] Address: [address] [place] [address] Performed By: #### 2 4323-8 ####[facility] LABCLIA [id number] [place] [address] [place] CO2 [Moles/Vol] 32 mmol/L High 22-30 [facility] Comment on above: Order Comment: Speci men Type: BLOOD SPECIMENOrdering Facility: [facility] Address: [address] [place] [address] Performed By: #### 2 4323-8 ####[facility] LABCLIA [id number] [place] [address] [place] Creatinine [Mass/Vol] 1.11 mg/dL High 0.58-0.96 [facility] Comment on above: Order Comment: Speci men Type: BLOOD SPECIMENOrdering Facility: [facility] Address: [address] [place] [address] Performed By: #### 2 4323-8 ####[facility] LABCLIA [id number] [place] [address] [place] Creatinine and Glomerular filtration rate.predicted panel (S/P/Bld) 52 mL/min/1.73m??? Low >=60 [facility] Comment on above: Order Comment: Speci men Type: BLOOD SPECIMENOrdering Facility: [facility] Address: [address] [place] [address] Result Comment: Shelley mated Glomerular Filtration Rate [...] actual GFR. Performed By: #### 2 4323-8 ####[facility] LABCLIA [id number] [place] [address] [place] Glucose [Mass/Vol] 123 mg/dL High 74-99 [facility] Comment on above: Order Comment: Speci men Type: BLOOD SPECIMENOrdering Facility: [facility] Address: [address] [place] [address] Result Comment: The [place] Diabetes Association (ADA) provides guidance for cutoff [...] Standards of Medical Care in Diabetes 2016, [place] [employer]. Diabetes Care. 2016.39(Suppl 1). Performed By: #### 2 4323-8 ####[facility] LABCLIA [id number] [place] [address] [place] Potassium [Moles/Vol] 3.7 mmol/L Normal 3.7-5.1 [facility] Comment on above: Order Comment: Speci men Type: BLOOD SPECIMENOrdering Facility: [facility] Address: [address] [place] [address] Performed By: #### 2 4323-8 ####[facility] LABIA [id number] [place] [address] [place] Protein [Mass/Vol] 6.1 g/dL Low 6.3-8.0 [facility] Comment on above: Order Comment: Speci men Type: BLOOD SPECIMENOrdering Facility: [facility] Address: [address] [place] [address] Performed By: #### 2 4323-8 ####[facility] LABCLIA [id number] [place] [address] [place] Sodium [Moles/Vol] 137 mmol/L Normal 136-144 [facility] Comment on above: Order Comment: Speci men Type: BLOOD SPECIMENOrdering Facility: [facility] Address: [address] [place] [address] Performed By: #### 2 4323-8 ####[facility] LABCLIA [id number] [place] [address] [place] Urea nitrogen [Mass/Vol] 21 mg/dL Normal 7-21 [facility] Comment on above: Order Comment: Speci men Type: BLOOD SPECIMENOrdering Facility: [facility] Address: [address] [place] [address] Performed By: #### 2 4323-8 ####[facility] LABCLIA [id number] [place] [address] [place] DIGOXIN/LANOXINon 08-24-2023 Digoxin [Mass/Vol] 1.1 ng/mL Normal 0.6-1.2 [facility] Comment on above: Order Comment: Speci men Type: BLOOD SPECIMENOrdering Facility: [facility] Address: [address] [place] [address] Result Comment: Prov ided therapeutic concentrations are based on the 2008 ESC Guidelines for the Diagnosis and Treatment of Acute and Chronic Heart Failure.Reference ranges and high/low indicator flags are provided as general guidelines only. The treating physician must determine appropriate target levels/dosing based on the specific clinical situation. Performed By: #### D IG ####[facility] LABCLIA [id number] [place] [address] [place] HISTORY PHYSICALon HISTORY PHYSICAL Normal [facility] URINALYSIS, DIPSTICK ONLYon 08-24-2023 Bilirubin Ql (U) Negative Normal Negative [facility] Comment on above: Order Comment: Speci men Type: URINE SPECIMENOrdering Facility: [facility] Address: [address] [place] [address] Performed By: #### U A ####[facility] LABCLIA [id number] [place] [address] [place] Clarity (Unsp spec) Cloudy Abnormal Clear [facility] Comment on above: Order Comment: Speci men Type: URINE SPECIMENOrdering Facility: [facility] Address: [address] [place] [address] Performed By: #### U A ####[facility] LABCLIA [id number] [place] [address] [place] Color (U) Yellow Normal Yellow [facility] Comment on above: Order Comment: Speci men Type: URINE SPECIMENOrdering Facility: [facility] Address: [address] [place] [address] Performed By: #### U A ####[facility] LABCLIA [id number] [place] [address] [place] Glucose Test strip (U) [Mass/Vol] Negative Normal Negative [facility] Comment on above: Order Comment: Speci men Type: URINE SPECIMENOrdering Facility: [facility] Address: [address] [place] [address] Performed By: #### U A ####[facility] LABCLIA [id number] [place] [address] [place] Hemoglobin Ql (U) Trace Abnormal Negative [facility] Comment on above: Order Comment: Speci men Type: URINE SPECIMENOrdering Facility: [facility] Address: [address] [place] [address] Performed By: #### U A ####[facility] LABCLIA [id number] [address] [place] Ketones Ql (U) Trace Abnormal Negative [facility] Comment on above: Order Comment: Speci men Type: URINE SPECIMENOrdering Facility: [facility] Address: [address] [place] [address] Performed By: #### U A ####[facility] LABCLIA [id number] [address] [place] Leukocyte esterase Test strip Ql (U) 1+ Abnormal Negative [facility] Comment on above: Order Comment: Speci men Type: URINE SPECIMENOrdering Facility: [facility] Address: [address] [place] [address] Performed By: #### U A ####[facility] LABCLIA [id number] [place] [address] [place] Nitrite Ql (U) Negative Normal Negative [facility] Comment on above: Order Comment: Speci men Type: URINE SPECIMENOrdering Facility: [facility] Address: [address] [place] [address] Performed By: #### U A ####[facility] LABIA [id number] [place] [address] [place] pH (U) 5.5 [pH] Normal <8.5 [facility] Comment on above: Order Comment: Speci men Type: URINE SPECIMENOrdering Facility: [facility] Address: [address] [place] [address] Performed By: #### U A ####[facility] [id number] [place] [address] [place] Protein (U) [Mass/Vol] 1+ Abnormal Negative [facility] Comment on above: Order Comment: Speci men Type: URINE SPECIMENOrdering Facility: [facility] Address: [address] [place] [address] Performed By: #### U A ####[facility] LABIA [id number] [place] [address] [place] Specific gravity (U) [Rel density] 1.021 Normal 1.005-1.030 [facility] Comment on above: Order Comment: Speci men Type: URINE SPECIMENOrdering Facility: [facility] Address: [address] [place] [address] Performed By: #### U A ####[facility] LABIA [id number] [place] [address] [place] Urobilinogen Ql (U) 1.0 EU/dL Normal 0.2-1.0 EU/dL [facility] Comment on above: Order Comment: Speci men Type: URINE SPECIMENOrdering Facility: [facility] Address: [address] [place] [address] Performed By: #### U A ####[facility] LABCLIA [id number] [place] [address] [place] CBC panel Auto (Bld)on 08-23 Erythrocyte distribution width (RBC) [Ratio] 12.9 % Normal 11.5-15.0 [facility] Comment on above: Order Comment: Speci men Type: BLOOD SPECIMENOrdering Facility: [facility] Address: [address] [place] [address] Performed By: #### 5 8410-2 ####[facility] LABIA [id number] [place] [address] [place] Hematocrit (Bld) [Volume fraction] 43.4 % Normal 36.0-46.0 [facility] Comment on above: Order Comment: Speci men Type: BLOOD SPECIMENOrdering Facility: [facility] Address: [address] [place] [address] Performed By: #### 5 8410-2 ####[facility] LABIA [id number] [place] [address] [place] Hemoglobin (Bld) [Mass/Vol] 14.4 g/dL Normal 11.5-15.5 [facility] Comment on above: Order Comment: Speci men Type: BLOOD SPECIMENOrdering Facility: [facility] Address: [address] [place] [address] Performed By: #### 5 8410-2 ####[facility] LABCLIA [id number] [place] [address] [place] MCH (RBC) [Entitic mass] 30.3 pg Normal 26.0-34.0 [facility] Comment on above: Order Comment: Speci men Type: BLOOD SPECIMENOrdering Facility: [facility] Address: [address] [place] [address] Performed By: #### 5 8410-2 ####[facility] LABCLIA [id number] [place] [address] [place] MCHC (RBC) [Mass/Vol] 33.2 g/dL Normal 30.5-36.0 [facility] Comment on above: Order Comment: Speci men Type: BLOOD SPECIMENOrdering Facility: [facility] Address: [address] [place] [address] Performed By: #### 5 8410-2 ####[facility] LABCLIA [id number] [place] [address] [place] MCV (RBC) [Entitic vol] 91.4 fL Normal 80.0-100.0 [facility] Comment on above: Order Comment: Speci men Type: BLOOD SPECIMENOrdering Facility: [facility] Address: [address] [place] [address] Performed By: #### 5 8410-2 ####[facility] LABCLIA [id number] [place] [address] [place] Nucleated RBC (Bld) [#/Vol] 10*3/uL Normal <0.01 [facility] Comment on above: Order Comment: Speci men Type: BLOOD SPECIMENOrdering Facility: [facility] Address: [address] [place] [address] Performed By: #### 5 8410-2 ####[facility] LABCLIA [id number] [place] [address] [place] Platelet mean volume (Bld) [Entitic vol] 10.5 fL Normal 9.0-12.7 [facility] Comment on above: Order Comment: Speci men Type: BLOOD SPECIMENOrdering Facility: [facility] Address: [address] [place] [address] Performed By: #### 5 8410-2 ####[facility] LABCLIA [id number] [place] [address] [place] Platelets (Bld) [#/Vol] 215 10*3/uL Normal 150-400 [facility] Comment on above: Order Comment: Speci men Type: BLOOD SPECIMENOrdering Facility: [facility] Address: [address] [place] [address] Performed By: #### 5 8410-2 ####[facility] LABIA [id number] [place] [id number] [place] RBC (Bld) [#/Vol] 4.75 10*6/uL Normal 3.90-5.20 [facility] Comment on above: Order Comment: Speci men Type: BLOOD SPECIMENOrdering Facility: [facility] Address: [address] [place] [address] Performed By: #### 5 8410-2 ####[facility] LABIA [id number] [place] [address] [place] WBC (Bld) [#/Vol] 6.24 10*3/uL Normal 3.70-11.00 [facility] Comment on above: Order Comment: Speci men Type: BLOOD SPECIMENOrdering Facility: [facility] Address: [address] [place] [address] Performed By: #### 5 8410-2 ####[facility] LABIA [id number] [place] [id number] [place] CNOVon 08-23-2023 CNOV Normal [facility] CNOV Normal [facility] CREATININE BLDon 08-23-2023 Creatinine [Mass/Vol] 0.97 mg/dL High 0.58-0.96 [facility] Comment on above: Order Comment: Speci men Type: BLOOD SPECIMENOrdering Facility: [facility] Address: [address] [place] [address] Performed By: #### C RET1 ####[facility] LABIA [id number] [place] [id number] [place] Creatinine and Glomerular filtration rate.predicted panel (S/P/Bld) 61 mL/min/1.73m??? Normal >=60 [facility] Comment on above: Order Comment: Speci men Type: BLOOD SPECIMENOrdering Facility: [facility] Address: [address] [place] [address] Result Comment: Shelley mated Glomerular Filtration Rate [...] actual GFR. Performed By: #### C RET1 ####[facility] LABIA [id number] [place] [address] [place] CTA CHEST (GATED) W IVCONon 08-23-2023 CTA CHEST (GATED) W IVCON Normal [facility] Comprehensive metabolic 2000 panelon 08-23-2023 Albumin [Mass/Vol] 4.4 g/dL Normal 3.9-4.9 [facility] Comment on above: Order Comment: Speci men Type: BLOOD SPECIMENOrdering Facility: [facility] Address: [address] [place] [address] Performed By: #### 2 4323-8, 09660-0 ####[facility] LABIA [id number] [place] [address] [place] ALP [Catalytic activity/Vol] 66 U/L Normal 34-123 [facility] Comment on above: Order Comment: Speci men Type: BLOOD SPECIMENOrdering Facility: [facility] Address: [address] [place] [address] Performed By: #### 2 4323-8, 18361-3 ####[facility] LABIA [id number] [place] [address] [place] ALT [Catalytic activity/Vol] 40 U/L High 7-38 [facility] Comment on above: Order Comment: Speci men Type: BLOOD SPECIMENOrdering Facility: [facility] Address: [address] [place] [address] Performed By: #### 2 4323-8, 20169-7 ####[facility] LABCLIA [id number] [place] [address] [place] Anion gap [Moles/Vol] 9 mmol/L Normal 9-18 [facility] Comment on above: Order Comment: Speci men Type: BLOOD SPECIMENOrdering Facility: [facility] Address: [address] [place] [address] Performed By: #### 2 4323-8, 14073-9 ####[facility] LABCLIA [id number] [place] [address] [place] AST [Catalytic activity/Vol] 31 U/L Normal 13-35 [facility] Comment on above: Order Comment: Speci men Type: BLOOD SPECIMENOrdering Facility: [facility] Address: [address] [place] [address] Performed By: #### 2 4323-8, 67904-3 ####[facility] LABCLIA [id number] [place] [address] [place] Bilirubin [Mass/Vol] 0.8 mg/dL Normal 0.2-1.3 [facility] Comment on above: Order Comment: Speci men Type: BLOOD SPECIMENOrdering Facility: [facility] Address: [address] [place] [address] Performed By: #### 2 4323-8, 76629-5 ####[facility] LABCLIA [id number] [place] [address] [place] Calcium [Mass/Vol] 9.8 mg/dL Normal 8.5-10.2 [facility] Comment on above: Order Comment: Speci men Type: BLOOD SPECIMENOrdering Facility: [facility] Address: [address] [place] [address] Performed By: #### 2 4323-8, 33552-3 ####[facility] LABCLIA [id number] [place] [address] [place] Chloride [Moles/Vol] 98 mmol/L Normal 97-105 [facility] Comment on above: Order Comment: Speci men Type: BLOOD SPECIMENOrdering Facility: [facility] Address: [address] [place] [address] Performed By: #### 2 4323-8, 89332-3 ####[facility] LABCLIA [id number] [place] [address] [place] CO2 [Moles/Vol] 32 mmol/L High 22-30 [facility] Comment on above: Order Comment: Speci men Type: BLOOD SPECIMENOrdering Facility: [facility] Address: [address] [place] [address] Performed By: #### 2 4323-8, 40907-8 ####[facility] LABCLIA [id number] [place] [address] [place] Creatinine [Mass/Vol] 0.98 mg/dL High 0.58-0.96 [facility] Comment on above: Order Comment: Speci men Type: BLOOD SPECIMENOrdering Facility: [facility] Address: [address] [place] [address] Performed By: #### 2 4323-8, 79034-6 ####[facility] LABCLIA [id number] [place] [address] [place] Creatinine and Glomerular filtration rate.predicted panel (S/P/Bld) 60 mL/min/1.73m??? Normal >=60 [facility] Comment on above: Order Comment: Speci men Type: BLOOD SPECIMENOrdering Facility: [facility] Address: [address] [place] [address] Result Comment: Shelley mated Glomerular Filtration Rate [...] actual GFR. Performed By: #### 2 4323-8, 96462-4 ####[facility] LABCLIA [id number] [place] [address] [place] Glucose [Mass/Vol] 127 mg/dL High 74-99 [facility] Comment on above: Order Comment: Speci men Type: BLOOD SPECIMENOrdering Facility: [facility] Address: [address] [place] [address] Result Comment: The [place] [employer] (ADA) provides guidance for cutoff [...] Standards of Medical Care in Diabetes 2016, [employer]. Diabetes Care. 2016.39(Suppl 1). Performed By: #### 2 4323-8, 20294-7 ####[facility] LABCLIA [id number] [place] [address] [place] Potassium [Moles/Vol] 4.1 mmol/L Normal 3.7-5.1 [facility] Comment on above: Order Comment: Speci men Type: BLOOD SPECIMENOrdering Facility: [facility] Address: [address] [place] [address] Performed By: #### 2 4323-8, 14534-9 ####[facility] LABIA [id number] [place] [address] [place] Protein [Mass/Vol] 6.8 g/dL Normal 6.3-8.0 [facility] Comment on above: Order Comment: Speci men Type: BLOOD SPECIMENOrdering Facility: [facility] Address: [address] [place] [address] Performed By: #### 2 4323-8, 48315-8 ####[facility] LABCLIA [id number] [place] [address] [place] Sodium [Moles/Vol] 139 mmol/L Normal 136-144 [facility] Comment on above: Order Comment: Speci men Type: BLOOD SPECIMENOrdering Facility: [facility] Address: [address] [place] [address] Performed By: #### 2 4323-8, 78514-7 ####[facility] LABCLIA [id number] [place] [address] [place] Urea nitrogen [Mass/Vol] 17 mg/dL Normal 7-21 [facility] Comment on above: Order Comment: Speci men Type: BLOOD SPECIMENOrdering Facility: [facility] Address: [address] [place] [address] Performed By: #### 2 4323-8, 20942-2 ####[facility] LABCLIA [id number] [place] [address] [place] [id number] 08-23-2023 ECG01 Normal [facility] NT-proBNP SerPl-mCncon 08-23 Natriuretic peptide.B prohormone N-Terminal [Mass/Vol] 3265 pg/mL High <450 [facility] Comment on above: Order Comment: Speci men Type: BLOOD SPECIMENOrdering Facility: [facility] Address: [address] [place] [address] Performed By: #### 2 4323-8, 28375-7 ####[facility] LABCLIA [id number] [place] [address] [place] RIGHT HEART CATH REPORTon RIGHT HEART CATH REPORT Normal [facility] US CAROTID ARTERIES DAWSON VAS LABon 08-23-2023 US CAROTID ARTERIES DAWSON VAS LAB Normal [facility] CNPNon 08-22-2023 CNPN Normal [facility] CNPNon 08-16-2023 CNPN Normal [facility] Outside Cardiovascularon Outside Cardiovascular [id number]# 1.00TIFF [facility] Progress Note-Physicianon Progress Note-Physician [id number]#1 .00TIFF [facility] Echocardiogram-Transesophage anamaria 07-28-2023 Echocardiogram-Transe sophageal [id number]# 1.00TIFF [facility] CNPNon 07-24-2023 CNPN Normal [facility] Discharge Instructionson Discharge Instructions [id number]# 1.00TIFF [facility] Formson 07-24-2023 Forms [id number]#1 .00TIFF [facility] Consent for Treatmenton Consent for Treatment [id number]#1 .00TIFF [facility] Inpatient Clinical Summaryon 07-21-2023 Inpatient Clinical Summary [address] [address] Clinical Summary Person Information: Name: HARJIT ASENCIO I Age: 73 Years : 1950 Sex: Female PCP: Peggy Nazario MD Marital Status: Race: White Ethnicity: Non- or Language: Citizen Of [place] Visit Id: Visit Reason: I51.9, I42.8 Speciality: Acuity: Enc Type: Ambulatory/Same Day Surgery Med Service: Surgery Arrival: 07/21/2023 06:33:24 Discharge: Dispo Type: Address: [address] [place] [address] [address] [facility] [id number] Provider Notes: Diagnosis: Problems Active Urethral stricture [...] up: With: Address: When: Johan HENRIQUEZ [address] [place] [address] [phone] [employer] (1) Comments: -After your appointment with CC Type Location [facility] Office Visit [facility] 01/24/2024 2:30 PM 01/24/2024 2:45 PM Confirmed Patient Education Information: CV - Post-Transesophageal Echocardiogram (Custom) [facility] Inpatient Patient Summaryon 07-21-2023 Inpatient Patient Summary [address] [address] Patient Discharge Instructions PERSON INFORMATION Name: HARJIT [...] up: With: Address: When: Johan HENRIQUEZ [address] [place] [phone] [employer] (1) Comments: -After your appointment with CC In the event that this physician does not participate in your insurance network, please consult with your insurance company to find a nearby participating provider. Type Location [facility] Office Visit [facility] [place] 01/24/2024 2:30 PM 01/24/2024 2:45 PM Confirmed [...] Mouth every day. Refills: 0. Pharmacy Information: [facility] Comment: PATIENT EDUCATION INFORMATION Instructions: [place], [place] POST-TRANSESOPHAGEAL ECHOCARDIOGRAM AFTER THE PROCEDURE: Diet: ? May eat/drink and/or take normal daily medications after 10:45 Activity: ? You should have someone stay with you for the next (more content not included)... [facility] Patient Education - Texton 1 09-21-2022 Patient Education - Text [place] POST-TRANSESOPHAGEAL ECHOCARDIOGRAM AFTER THE PROCEDURE: Diet: [...] Seek Medical Care if: ? Notify your user experience team lead should you have any difficulty swallowing or coughing up blood. ? In the event you are unable to reach your user experience team lead, please call [facility] at [phone] and the flexographic press set up operator will assist you. [facility] Referrals Officeon Referrals Office [id number]# 1.00TIFF [facility] Consent for Procedure/Surger yon 07-20-2023 Consent for Procedure/Surgery [id number] #1.00TIFF [facility] Consent for Treatmenton 12-0 Consent for Treatment [id number]#1 .00TIFF Normal [facility] Heart and Vascular Office/Cl inic Noteon [...] confirmed by markedly elevated V wave on Woodruff-Lois catheter wedge pressure tracing. 5. Normal left [...] The patient wishes to go to the [facility] for mitral and tricuspid valve repair if [...] Renal le (more content not included)... [facility] Comment on above: Result Comment: Elec tronically Signed By: MARTINEZ MCMAHON, Johan Patino\.br\Date and Time Signed: 07/20/23 10:38 EST Physician Orderon 07-20-2023 Physician Order [id number] #1.00TIFF [facility] Ambulatory Visit Summaryon 1 09-19-2022 Ambulatory [...] AM EST With: Johan HENRIQUEZ MD Where: [facility] Monday 2:30 PM EDT With: Micheline BROOKS MD Where: [facility] Shira Doty [facility] Patient Educationon 07-19-20 Patient Education Urology [...] including vitamins, herbs, eye drops, creams, and gjhe-qdw-dzwvjrl medicines. ? Whether you are or may [...] be (more content not included)... Normal [facility] Urology Office/Clinic Noteon 07-19-2023 Urology Office/Clinic Note Chief Complaint f/u for urinary retention HPI Staff Pt was last seen on 04/26/23. Pt was seen at [facility] on 07/07/23. Pt had Robles. placed at [...] of incomplete bladder emptying) Pt presented to [facility] ED 07/03/23 due to urinary retention. Robles [...] [facility] [address], [place] [address]- Additional Instructions: 6 mos Patient Education Urodynamic Testing Felisa Ruiz, personally scribed for Dr. Brooks on 07/19/2023 [...] Oral, BID (more content not included)... [facility] Comment on above: Result Comment: Elec tronically Signed By: CECILIA MCMAHON, Micheline R\.br\Date and Time Signed: 07/19/23 16:01 EST\.br\Electronically Co-Signed By: Felisa Bautista\.br\Date and Time Co-Signed: 07/19/23 15:59 EST Coding Queryon 07-17-2023 Coding Query - From: Natalya Ansari To: JAZMÍN MCMAHON, Mbbanner; Sent: 07/14/2023 12:05:07 EST ! Subject: Coding Query Dr Serrato, In your Progress notes you list- 4. Elevated troponin Secondary to type 2 non-ST segment elevation myocardial infarction from above and mild cad The ekg nor echo showed [place] and the Cardiology consult didn't mention it and his recommendations were reviewed and agreed with. Was the [place] type II ruled out or should that be coded? Thank you [facility] Coding From: Nahid SERRATO MD To: Kurt Ansarianette; Sent: 07/17/2023 12:28:48 EST Subject: RE: Coding Query Caller Name: HARJIT ASENCIO I; Caller Number: H Type 2 acute NSTEMI due to demand ischemia from A-FIB with RVR. (POA) [facility] ED Note-Physicianon 07-15-20 ED Note-Physician Basic Information Time Seen: Jeff Cross DO 07/07/2023 09:00 Chief Complaint discharged yesterday from [facility], reports can't breathe w/exertion History of Present [...] of 40. Case is discussed with her user experience team lead. She just underwent ischemic evaluation including catheterization [...] HENRIQUEZ In 3 days 07/10/[address] [place] [address]- [phone] Business (1) Additional Instructions: Peggy Nazario In 3 days 07/10/[address] [place] [address]- Business (1) Additional Instructions (more content not included)... [facility] Comment on above: Result Comment: Elec tronically Signed By: Noe Black PA-C\.br\Date and Time Signed: 07/07/23 15:56 EST\.br\Electronically Co-Signed By: Jeff Cross DO\.br\Date and Time Co-Signed: 07/15/23 06:59 EST Cardiovascular Reporton 06-16 Cardiovascular Report [id number]# 2.00TIFF [facility] Nursing Assessmenton 023 Nursing Assessment [id number]# 1.00TIFF [facility] Discharge Instructionson Discharge Instructions [id number]# 1.00TIFF [facility] Auto Diffon 07-07-2023 Basophils/100 WBC (Bld) 0.6 % Normal 0.0-2.0 [facility] Comment on above: Order Comment: Order Added by Discern Expert. Performed By: #### 2 000277, 65851013, 7913677, 4935364, 6463967, 1876952 #### [facility] [address] [place] [address] Basophils/Leukocytes Auto (Bld) [Pure # fraction] 0.0 E9/L Normal 0.0-0.2 [facility] Comment on above: Order Comment: Order Added by Discern Expert. Performed By: #### 2 024405, 08195642, 0359069, 8057964, 8923017, 7489520 #### [facility] [address] [place] [address] Eosinophils/100 WBC (Bld) 1.5 % Normal 0.0-8.0 [facility] Comment on above: Order Comment: Order Added by Discern Expert. Performed By: #### 2 501206, 55128613, 4261845, 3084575, 5616536, 6136696 #### [facility] [address] [place] [address] Eosinophils/Leukocyte s Auto (Bld) [Pure # fraction] 0.1 E9/L Normal 0.0-0.5 [facility] Comment on above: Order Comment: Order Added by Discern Expert. Performed By: #### 2 877289, 99259030, 1275312, 4293929, 3318330, 8559475 #### [facility] [address] [place] [address] Lymphocytes/100 WBC (Bld) 15.3 % Normal 14.0-50.0 [facility] Comment on above: Order Comment: Order Added by Discern Expert. Performed By: #### 2 407967, 33027744, 5923916, 7674383, 6836988, 1874857 #### [facility] [address] [place] [address] Lymphocytes/Leukocyte s Auto (Bld) [Pure # fraction] 1.2 E9/L Normal 1.0-4.0 [facility] Comment on above: Order Comment: Order Added by Discern Expert. Performed By: #### 2 421629, 85501477, 4058263, 7381003, 1090368, 5727156 #### [facility] [address] [place] [address] Monocytes/100 WBC (Bld) 6.4 % Normal 4.0-14.0 [facility] Comment on above: Order Comment: Order Added by Discern Expert. Performed By: #### 2 527281, 92331611, 6853471, 1634377, 3352696, 7077007 #### [facility] [address] [place] [address] Monocytes/Leukocytes Auto (Bld) [Pure # fraction] 0.5 E9/L Normal 0.2-1.0 [facility] Comment on above: Order Comment: Order Added by Discern Expert. Performed By: #### 2 702494, 28681796, 3867745, 7467717, 5687468, 4590677 #### [facility] [address] [place] [address] Neutrophils/100 WBC (Bld) 76.2 % High 36.0-75.0 [facility] Comment on above: Order Comment: Order Added by Discern Expert. Performed By: #### 2 875971, 80752606, 1737850, 2254847, 8945686, 9119063 #### [facility] [address] [place] [address] Neutrophils/Leukocyte s Auto (Bld) [Pure # fraction] 6.1 E9/L Normal 2.0-7.5 [facility] Comment on above: Order Comment: Order Added by Discern Expert. Performed By: #### 2 522734, 45318137, 1431689, 0374409, 6942775, 2176813 #### [facility] [address] [place] [address] BMPon 07-07-2023 Creatinine [Mass/Vol] 0.8 mg/dL Normal 0.5-1.3 [facility] Comment on above: Performed By: #### 2 238676, 37433923, 1286725, 2507966, 0419629, 1048775 #### [facility] [address] [place] [address] Urea nitrogen [Mass/Vol] 13 mg/dL Normal 5-21 [facility] Comment on above: Performed By: #### 2 848555, 50838100, 6669273, 8532286, 4850650, 1223580 #### [facility] [address] [place] [address] Urea nitrogen/Creatinine [Mass ratio] 16 No Units Normal 10-20 [facility] Comment on above: Performed By: #### 2 398432, 13616995, 1107645, 9339978, 8851969, 9054754 #### [facility] [address] [place] [address] Anion gap [Moles/Vol] 14 mmol/L Normal 6-16 [facility] Comment on above: Performed By: #### 2 910250, 70675648, 8778184, 7878931, 6458942, 1266395 #### [facility] [address] [place] [address] Calcium [Mass/Vol] 8.7 mg/dL Low 8.9-11.1 [facility] Comment on above: Performed By: #### 2 609165, 72888078, 4875673, 4924910, 0039315, 3099734 #### [facility] [address] [place] [address] Chloride [Moles/Vol] 100 mmol/L Low 101-111 [facility] Comment on above: Performed By: #### 2 236436, 23606740, 1025549, 3820617, 0834277, 2344437 #### [facility] [address] [place] [address] CO2 [Moles/Vol] 26 mmol/L Normal 21-31 [facility] Comment on above: Performed By: #### 2 922541, 21543347, 8829503, 7105523, 5944627, 9945488 #### [facility] [address] [place] [address] Glucose [Mass/Vol] 137 mg/dL Normal 55-199 [facility] Comment on above: Result Comment: If t his glucose result represents a fasting glucose, interpretation should refer to the following reference range: 55-99 mg/dL Performed By: #### 2 195709, 73860638, 4098989, 9128968, 6650363, 4822504 #### [facility] [address] [place] [address] Potassium [Moles/Vol] 4.3 mmol/L Normal 3.5-5.3 [facility] Comment on above: Performed By: #### 2 572714, 91680436, 5441519, 8932564, 6178415, 5447197 #### [facility] [address] [place] [address] Sodium [Moles/Vol] 136 mmol/L Normal 135-145 [facility] Comment on above: Performed By: #### 2 752323, 28489503, 8657395, 7021164, 3845995, 0530427 #### [facility] [address] [place] [address] BNPon 07-07-2023 Natriuretic peptide B (Bld) [Mass/Vol] 756 pg/mL High 5-80 [facility] Comment on above: Performed By: #### 2 189743, 92121809, 7819168, 9892125, 3227421, 1630033 #### [facility] [address] [place] [address] CBC w/ Auto Diffon Erythrocyte distribution width (RBC) [Ratio] 13.8 % Normal 10.9-14.2 [facility] Comment on above: Performed By: #### 2 729160, 59133329, 4088594, 3678133, 0126155, 2504319 #### [facility] [address] [place] [address] Hematocrit (Bld) [Volume fraction] 40.3 % Normal 34.0-46.0 [facility] Comment on above: Performed By: #### 2 295774, 51317869, 3534615, 1666142, 0702296, 4804170 #### [facility] [address] [place], [place] [address] Hemoglobin (Bld) [Mass/Vol] 13.0 g/dL Normal 12.0-16.0 [facility] Comment on above: Performed By: #### 2 797628, 27069119, 6215666, 1942438, 8471015, 2550778 #### [facility] [address] [place] [address] MCH (RBC) [Entitic mass] 29.2 pg Normal 27.0-34.0 [facility] Comment on above: Performed By: #### 2 327990, 80283695, 4342461, 3653880, 2678473, 3320486 #### [facility] [address] [place] [address] MCHC (RBC) [Mass/Vol] 32.3 g/dL Normal 31.4-36.0 [facility] Comment on above: Performed By: #### 2 139943, 34450783, 9258393, 4615832, 7924282, 0388604 #### [facility] [address] [place] [address] MCV (RBC) [Entitic vol] 90.2 fL Normal 80.0-100.0 [facility] Comment on above: Performed By: #### 2 514771, 63529753, 4783521, 2366898, 5166419, 4628208 #### [facility] [address] [place] [address] Platelet mean volume (Bld) [Entitic vol] 8.5 fL Normal 6.4-10.8 [facility] Comment on above: Performed By: #### 2 394402, 86555215, 2789428, 5371065, 0838693, 7062095 #### [facility] [address] [place] [address] Platelets (Bld) [#/Vol] 291.0 E9/L Normal 150.0-500.0 [facility] Comment on above: Performed By: #### 2 950901, 88358594, 7746813, 0756981, 8954765, 4048079 #### [facility] [address] [place] [address] RBC (Bld) [#/Vol] 4.5 E12/L Normal 4.3-5.9 [facility] Comment on above: Performed By: #### 2 204510, 68378982, 7115351, 6966902, 6325492, 2384324 #### [facility] [address] [place] [address] WBC corrected for nucl RBC Auto (Bld) [#/Vol] 8.0 E9/L Normal 4.0-11.0 [facility] Comment on above: Performed By: #### 2 879721, 03917104, 8280607, 3221541, 9763733, 8230929 #### [facility] [address] [place] [address] CHEMISTRYOrdered By: SYSTEM SYSTEM on 07-07-2023 Troponin I.cardiac [Mass/Vol] 42.10 pg/mL Invalid Interpretation Code 10.10 - 27.10 pg/mL [facility] Remisol Comment on above: Result Comment: Crit [...] Sensitivity Troponin I Instructions For Use, Marlys Eldridge, March 2018) Anion gap [Moles/Vol] 14 mmol/L [...] 77 mL/min/1.73 m2 Normal >=59mL/min/1 .73 m2 [facility] Chem S Comment on above: Interpretive Data: C hronic kidney disease could be indicated at eGFR's of less than 60 mL/min/1.73m2. Kidney failure is indicated at less than 15 mL/min/1.73m2. Glucose [Mass/Vol] 137 mg/dL Normal 55 - 199 mg/dL [facility] Remisol Comment on above: Interpretive Data: I f this glucose result represents a fasting glucose, interpretation should refer to the following reference range: 55-99 mg/dL Potassium [Moles/Vol] 4.3 mmol/L Normal 3.5 - 5.3 mmol/L [facility] Remisol Sodium [Moles/Vol] 136 mmol/L Normal 135 - 145 mmol/L [facility] Remisol Troponin I.cardiac [Mass/Vol] 39.60 pg/mL Invalid Interpretation Code 10.10 - 27.10 pg/mL [facility] Remisol Comment on above: Result Comment: Crit [...] 13 mg/dL Normal 5 - 21 mg/dL [facility] Urea nitrogen/Creatinine [Mass ratio] 16 mg/mg Normal 10 - 20 [facility] Remisol CHEMISTRYOrdered By: Margaret Collier on 07-07-2023 Natriuretic peptide B (Bld) [Mass/Vol] 756 pg/mL High 5 - 80 pg/mL [facility] HemeManSS COAGULATIONOrdered By: Fay Tran on 07-07-2023 aPTT Coag (PPP) [Time] 28.4 s Normal 25.1 - 36.5 second(s) [facility] Auto Coag Comment on above: Interpretive Data: [...] the same coagulation reagent and instrumentation as [facility]. Currently there are no coagulation studies available worldwide for children to 14 days, and no normal ranges. Heparin therapeutic range (represented by Anti-Factor Xa activity of 0.2 - 0.4 U/mL) corresponds to PTT of 56.6 - 109.0 sec. INR Coag (PPP) [Relative time] 1.0 {INR} Invalid Interpretation Code [facility] Auto Coag Comment on above: Interpretive Data: I NR results are specifically intended to assess patients stabilized on long-term Anticoagulation therapy suggested INR s Less Intensive Anticoagulation 2.0 3.0 Conventional Range 3.0 4.5 PT Coag (PPP) [Time] 11.3 s Normal 9.4 - 1 2.5 second(s) [facility] Auto Coag Comment on above: Interpretive Data: [...] the same coagulation reagent and instrumentation as [facility]. Currently there are no coagulation studies available worldwide for children to 14 days, and no normal ranges. Consent for Procedure/Surger yon 07-07-2023 Consent for Procedure/Surgery [id number]# 1.00TIFF [facility] Consent for Treatmenton 06-15 Consent for Treatment [id number]#1 .00TIFF [facility] Discharge Instructionson Discharge Instructions [id number]#1 .00TIFF [facility] ED Clinical Summaryon 2022 ED Clinical Summary [place] [id number] ED Clinical Summary Person Information Name: HARJIT ASENCIO I Patricia/[facility] Age: 73 Years : 1950 Sex: Female Language: Citizen Of [place] PCP: Peggy Nazario MD Marital Status: Visit [...] 13:04:13 07/07/2023 13:04:13 07/07/2023 13:04:13 ADDRESS: [address] [place] [phone] PHYS DOC NOTES: MEDICAL INFORMATION: Prescriptions Given: [...] up: With: Address: When: Johan HENRIQUEZ [address] [place] [phone] [employer] (1) In 3 days 07/10/2023 With: Address: When: Peggy Nazario [address] [place] [address] [employer] (1) In 3 days 07/10/2023 DIAGNOSIS: A-fib; Anxiety [facility] ED Note-Nursingon 07-07-2023 ED Note-Nursing discussed in length medications pt needs to take yet today and need to sheepskin pickler Rx 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 [facility] ED Patient Education Noteon 07-07-2023 ED [...] signals of the heart. ? An ambulatory pipe and test supervisor to record your heart's activity for a [...] Trouble breathing. (more content not included)... [facility] ED Patient Summaryon 023 ED Patient Summary [place] [address] Patient Discharge Instructions Person Information Name: HARJIT ASENCIO I Age: 73 Years Arrival Date: 07/07/2023 08:56:07 Discharge Diagnosis: A-fib; Anxiety Primary Care Physician: Peggy Nazario MD Provider Information Primary Provider: Jeff Cross DO Advanced Payloader Operator:Noe Black PA-C The exam and treatment you received in the Emergency Department were for an urgent problem and are not intended as complete care. It is important that you follow up with a doctor, nurse practitioner, or physician?s geriatric assistant for ongoing care. If your symptoms [...] Instructions: With: Address: When: Johan HENRIQUEZ [address] [place] [phone] [employer] (1) In 3 days 07/10/2023 With: Address: When: Peggy Nazario [address] [place] [address] [employer] (1) In 3 days 07/10/2023 In the event that this physician does not participate in your insurance network, please consult with your insurance company to find a nearby participating provider. Patient Education Materials: Managing Anxiety, Adult; Atrial Fibrillation A MESSAGE TO ALL PATIENTS REGARDING OPIOIDS PRESCRIPTION OPIOIDS: WHAT YOU NEED TO KNOW Prescription opioids can be used to help relieve ecojozxs-ca-jrnuwm pain and are often prescribed following a [...] addiction, tel (more content not included)... [facility] HEMATOLOGYOrdered By: SYSTEM SYSTEM on 07-07-2023 [...] 11.0 E9/L [facility] [employer] Insurance Correspondence Off [facility] 07-07-2023 Insurance Correspondence Office [id number]#1 .00TIFF [facility] Monitor Recordon 07-07-2023 Monitor Record [id number]# 1.00TIFF [facility] Monitor Record [id number]# 1.00TIFF [facility] Monitor Record [id number]# 1.00TIFF [facility] PT & PTTon 07-07-2023 aPTT Coag (PPP) [Time] 28.4 second(s) Normal 25.1-36.5 [facility] Comment on above: Result Comment: Para [...] the same coagulation reagent and instrumentation as [facility]. Currently there are no coagulation studies available worldwide for children to 14 days, and no normal ranges. Heparin therapeutic range (represented by Anti-Factor Xa activity of 0.2 - 0.4 U/mL) corresponds to PTT of 56.6 - 109.0 sec. Performed By: #### 2 166566, 93671092, 1645935, 6036179, 1969012, 9856534 #### [facility] [address] [place] [address] INR Coag (PPP) [Relative time] 1.0 {INR} Invalid Interpretation Code [facility] Comment on above: Result Comment: INR results are specifically intended to assess patients stabilized on long-term Anticoagulation therapy suggested INR?s ?Less Intensive Anticoagulation? 2.0 ? 3.0 Conventional Range 3.0 ? 4.5 Performed By: #### 2 842360, 83778948, 6812907, 5898823, 4956303, 8644104 #### [facility] [address] [place] [address] PT Coag (PPP) [Time] 11.3 second(s) Normal 9.4-12.5 [facility] Comment on above: Result Comment: 15 [...] the same coagulation reagent and instrumentation as [facility]. Currently there are no coagulation studies available worldwide for children to 14 days, and no normal ranges. Performed By: #### 2 520747, 29890580, 7639675, 1585180, 5839305, 5002295 #### [facility] [address] [place] [address] Troponin 0 Hr.on 07-07-2023 Troponin I.cardiac [Mass/Vol] 39.60 pg/mL Abnormal 10.10-27.10 [facility] Comment on above: Result Comment: Crit [...] Sensitivity Troponin I Instructions For Use, Marlys Eldridge, March 2018) Performed By: #### 2 287967, 80055289, 3857186, 9274069, 1851992, 0051578 #### [facility] [address] [place] [address] Troponin 3 Hr.on 07-07-2023 Troponin I.cardiac [Mass/Vol] 42.10 pg/mL Abnormal 10.10-27.10 [facility] Comment on above: Result Comment: Crit [...] High Sensitivity Troponin I Instructions For Use, Celletra, March 2018) Performed By: #### 1 [id number] ####[facility] [address] [place] [address] XR Chest Single Viewon 07-07 XR Chest [...] London Padilla MD Transcribed by: ARAVIND Technologist: WILFREDP Technical Comments Radiation Dose: Ka,r in mGy = na DAP = na [facility] eGFRon 07-07-2023 GFR/1.73 sq M.predicted among non-blacks MDRD (S/P/Bld) [Vol rate/Area] 77 mL/min/1.73 m2 Normal >=59 [facility] Comment on above: Order Comment: Order added by Discern Expert. Result Comment: Chiropractic Care luis kidney disease could be indicated at eGFR's of less than 60 mL/min/1.73m2. Kidney failure is indicated at less than 15 mL/min/1.73m2. Performed By: #### 2 689599, 37338137, 7892671, 9368123, 2666485, 9196920 #### [facility] [address] [place] [address] BMPon 07-06-2023 Anion gap [Moles/Vol] 5 mmol/L Low 6-16 [facility] Comment on above: Performed By: #### 2 426196, 87559598, 6776960, 9070015, 2650786, 5125251 #### [facility] [address] [place] [address] Calcium [Mass/Vol] 8.0 mg/dL Low 8.9-11.1 [facility] Comment on above: Performed By: #### 2 023541, 78253910, 5875289, 7284811, 7080294, 1439966 #### [facility] [address] [place] [address] Chloride [Moles/Vol] 109 mmol/L Normal 101-111 [facility] Comment on above: Performed By: #### 2 259140, 27394464, 3152685, 8954720, 5946803, 4292321 #### [facility] [address] [place] [address] CO2 [Moles/Vol] 28 mmol/L Normal 21-31 [facility] Comment on above: Performed By: #### 2 755829, 44855304, 2770685, 4544180, 9253924, 0581974 #### [facility] [address] [place] [address] Creatinine [Mass/Vol] 0.7 mg/dL Normal 0.5-1.3 [facility] Comment on above: Performed By: #### 2 395315, 91708858, 8992644, 1787723, 0774443, 0207847 #### [facility] [address] [place] [address] Glucose [Mass/Vol] 91 mg/dL Normal 55-199 [facility] Comment on above: Result Comment: If t his glucose result represents a fasting glucose, interpretation should refer to the following reference range: 55-99 mg/dL Performed By: #### 2 585244, 37624539, 9864805, 0651718, 0278731, 8718132 #### [facility] [address] [place] [address] Potassium [Moles/Vol] 3.9 mmol/L Normal 3.5-5.3 [facility] Comment on above: Performed By: #### 2 861625, 99436389, 1664402, 0250195, 3823774, 0485285 #### [facility] [address] [place] [address] Sodium [Moles/Vol] 138 mmol/L Normal 135-145 [facility] Comment on above: Performed By: #### 2 018594, 45822524, 8779521, 0871167, 6212743, 7331065 #### [facility] [address] [place] [address] Urea nitrogen [Mass/Vol] 12 mg/dL Normal 5-21 [facility] Comment on above: Performed By: #### 2 387391, 87730894, 2931432, 6120273, 4488015, 2435616 #### [facility] [address] [place] [address] Urea nitrogen/Creatinine [Mass ratio] 17 No Units Normal 10-20 [facility] Comment on above: Performed By: #### 2 453186, 82781629, 1092895, 2401061, 2776231, 0016419 #### [facility] [address] [place] [address] CHEMISTRYOrdered By: SYSTEM SYSTEM on 07-06-2023 Anion gap [Moles/Vol] 5 mmol/L Low 6 - 16 mEq/L F C Remisol Calcium [Mass/Vol] 8.0 mg/dL Low 8.9 - 11. 1 mg/dL [facility] Remisol Chloride [Moles/Vol] 109 mmol/L Normal 101 - 1 11 mmol/L [facility] Remisol CO2 [Moles/Vol] 28 mmol/L Normal 21 - 31 mmol/L [facility] Remisol Creatinine [Mass/Vol] 0.7 mg/dL Normal 0.5 - 1.3 mg/dL [facility] Remisol GFR/1.73 sq M.predicted among non-blacks MDRD (S/P/Bld) [Vol rate/Area] 90 mL/min/1.73 m2 Normal >=59mL/min/1 .73 m2 [facility] Chem S Comment on above: Interpretive Data: C hronic kidney disease could be indicated at eGFR's of less than 60 mL/min/1.73m2. Kidney failure is indicated at less than 15 mL/min/1.73m2. Glucose [Mass/Vol] 91 mg/dL Normal 55 - 199 mg/dL [facility] Remisol Comment on above: Interpretive Data: I f this glucose result represents a fasting glucose, interpretation should refer to the following reference range: 55-99 mg/dL Potassium [Moles/Vol] 3.9 mmol/L Normal 3.5 - 5.3 mmol/L [facility] Remisol Sodium [Moles/Vol] 138 mmol/L Normal 135 - 145 mmol/L [facility] Remisol Urea nitrogen [Mass/Vol] 12 mg/dL Normal 5 - 21 mg/dL [facility] Remisol Urea nitrogen/Creatinine [Mass ratio] 17 mg/mg Normal 10 - 20 [facility] Remisol Discharge Note-Nursingon Discharge Note-Nursing HARJIT ASENCIO Joseph :1950 Visit Date:07/02/2023 Inpatient Discharge Instructions Your Care Team Admitting Physician - Noman PATTON DO Consulting Physician - DYLAN MCMAHON, Cody Goff MD, Eb Yeh [facility] Cardio, XXXX Reason for Your Visit I [...] MCMAHON, Micheline Morgan Where: [facility] Shira Doty [facility] Inpatient Clinical Summaryon 07-06-2023 Inpatient Clinical Summary [address] [address] Clinical Summary Person Information: Name: HARJIT ASENCIO I Age: 73 Years : 1950 Sex: Female PCP: Peggy Nazario MD Marital Status: Race: White Ethnicity: Non- or Language: Citizen Of [place] Visit Id: Visit Reason: Genitourinary problem; 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 Speciality: Acuity: Enc Type: Observation Med Service: Medical Arrival: 07/02/2023 21:17:31 Discharge: Dispo Type: Admitted as IP to this Hosp Address: [address] [place] [address] [address] [facility] [id number] Provider Notes: Diagnosis: 1:Atrial fibrillation with RVR; [...] MCMAHON, Eb Yeh; DYLAN MCMAHON, Cody Dumont; [facility] Cardio, XXXX Referring Physician: Follow up: With: Address: When: Johan HENRIQUEZ [address] [place], [place] [phone] Business (1) Within 2 weeks Comments: Call for followup appointment With: Address: When: Peggy Nazario [address] [place] [address] Business (1) 07/10/2023 1:00 PM With: Address: When: Micheline BROOKS [facility], [address], [place] [address] Business (1) Comments: Call for followup appointment re: the indwelling Robles catheter. Type Location Start [facility] Office Visit [facility] WILL Silva 11/22/2023 1:00 PM 11/22/2023 1:15 PM Confirmed Patient Education Information: CV - Cardiovascular Discharge Instructions (Custom) [facility] Inpatient Patient Summaryon 07-06-2023 Inpatient Patient Summary [address] [address] Patient Discharge Instructions PERSON INFORMATION [...] up: With: Address: When: Johan HENRIQUEZ [address] [place] [address] [phone] Business (1) Within 2 weeks Comments: Call for followup appointment With: Address: When: Peggy Nazario [address] [place] [address] Business (1) 07/10/2023 1:00 PM With: Address: When: Micheline BROOKS [facility], [address], [place] [address] Business (1) Comments: Call for followup appointment re: the indwelling Robles catheter. In the event that this physician does not participate in your insurance network, please consult with your insurance company to find a nearby participating provider. Type Location Start [facility] Office Visit [facility] WILL Silva 11/22/2023 1:00 PM 11/22/2023 1:15 PM Confirmed Comment: ELIF Ruiz JOYCE I, have received the attached patient education materials/instruction s and have verbalized understanding: Patient Signature Date Clinican/Nurse Signature Date HERE ARE THE MEDICATION CHANGES THAT OCCURRED DURING YOUR HOSPITAL STAY New Medications [id number], [address] [facility], [place] [id number], [phone] apixaban (Eliquis 5 mg oral tablet) 1 [...] day. Refills (more content not included)... [facility] Interdisciplinary Note - Tico e Manageron 07-06-2023 Interdisciplinary Note - Tester Waste Disposal Leakage Pt is awake and alert in bed, previously rounded with Dr. Serrato. Await cardiology to see and anticipate DC home later today. Declines any concerrns or DC needs. Brilinta was priced out yesterday $183 and coupon provided. . PCP verified and insurance information reviewed and DME discussed. Contact information provided and white board updated. [facility] Comment on above: Result Comment: Elec tronically Signed By: Martín ALFORD, Radha\.br\Date and Time Signed: 07/06/23 12:06 EST Monitor Recordon 07-06-2023 Monitor Record [id number]# 1.00TIFF [facility] Monitor Record [id number]# 1.00TIFF [facility] Monitor Record [id number]# 1.00TIFF [facility] Progress Note-Physicianon Progress Note-Physician Assessment/Plan 73-year-old female with history of ureteral stricture with previous dilations, anxiety disorder presented with complaints of urinary hesitancy, constipation, cough and shortness of breath and was admitted to [facility] with acute paroxysmal atrial fibrillation with [...] IV Cardizem drip. Continue on Coreg, digoxin. Cook Dinner debating on starting patient on amiodarone. Eliquis to start in 4 days after cardiac catheterization. Ordered: [facility] Hospital Care/Day Moderate 35 Minutes 42926 2. Acute systolic congestive heart failure (I50.21: Acute systolic (congestive) heart failure) Acute systolic congestive heart failure?present on admission. Seen by user experience team lead and underwent cardiac catheterization that showed mild coronary artery disease. Also shows severe mitral regurgitation and tricuspid regurgitation with ejection fraction of 30 to 35%. Continue on aspirin, Coreg, losartan and Lasix. Ordered: [facility] Hospital Care/Day Moderate 35 Minutes 26848 3. Severe mitral regurgitation (I34.0: Nonrheumatic mitral (valve) insufficiency) As seen on cardiac catheterization. Patient will follow-up with user experience team lead for HAROON and then valvular repair. Cook Dinner also considering transferring patient to or [facility]. Ordered: [facility] Hospital Care/Day Moderate 35 Minutes 53906 4. Elevated troponin (R79.89: Other specified abnormal findings of blood chemistry) Secondary to type II non-ST segment elevation myocardial infarction from above and mild coronary artery disease.. Seen by user experience team lead and underwent cardiac catheterization that showed mild coronary artery disease. Continue on aspirin, Lipitor, and Coreg. Ordered: [facility] Hospital Care/Day Moderate 35 Minutes 62392 5. Mild coronary artery disease (I25.10: Atherosclerotic heart disease of [place] coronary artery without angina pectoris) As seen on cardiac catheterization on 07/05/2023. Continue on Lipitor and aspirin. Ordered: [facility] Hospital Care/Day Moderate 35 Minutes 13471 6. anxiety (F41.9: Anxiety disorder, unspecified) Increase [...] deep vein thrombosis (DVT) prophylaxis (Z79.899: Other intermediate manager (current) drug therapy) SCDs. Eliquis to resume in 4 days. Disposition: Home soon today if heart rate is under good control with plans to follow-up with user experience team lead and urologist as outpatient. However if heart rate is still elevated then we will call [facility] or [facility] to see if we can transfer patient for valve repair/replacement. I discussed the diagnosis and plan of care with the patient at the bedside. Moderate level of MDM based on addressing above issues. This documentation was transcribed using voice recognition software. Several attempts were made to ensure accuracy. However inadvertent computerized gypsum block setter errors may be present. Nahid Serrato. Hospitalist. [...] Panel eGF (more content not included)... [facility] Comment on above: Result Comment: Elec [...] she is going to get to the [facility] or [facility] for mitral valve/tricuspid valve surgery. Despite all [...] to transfer the patient directly to the [facility] or [facility] given her logistic challenges with getting a [...] artery disease (I25.10: Atherosclerotic heart disease of [place] coronary artery without angina pectoris) 6. Pleural effusion (J90: Pleural effusion, not elsewhere classified) 7. Urinary hesitancy (R39.11: Hesitancy of micturition) 8. Other urethral stricture, female (N35.82: Oth (more content not included)... [facility] Comment on above: Result Comment: Elec tronically Signed By: MARTINEZ MCMAHON, Johan Patino\.br\Date and Time Signed: 07/06/23 09:22 EST eGFRon 07-06-2023 GFR/1.73 sq M.predicted among non-blacks MDRD (S/P/Bld) [Vol rate/Area] 90 mL/min/1.73 m2 Normal >=59 [facility] Comment on above: Order Comment: Order Added by Discern Expert. Result Comment: Chiropractic Care luis kidney disease could be indicated at eGFR's of less than 60 mL/min/1.73m2. Kidney failure is indicated at less than 15 mL/min/1.73m2. Performed By: #### 2 425600, 93625832, 5202575, 0468658, 4694690, 2043139 #### [facility] [address] [place] [address] BMPon 07-05-2023 Anion gap [Moles/Vol] 9 mmol/L Normal 6-16 [facility] Comment on above: Performed By: #### 1 3324954, 8843934 ####[facility] [address] [place] [address] Calcium [Mass/Vol] 8.2 mg/dL Low 8.9-11.1 [facility] Comment on above: Performed By: #### 1 5876455, 7641948 ####[facility] [address] [place] [address] Chloride [Moles/Vol] 105 mmol/L Normal 101-111 [facility] Comment on above: Performed By: #### 1 8221883, 5912447 ####[facility] [address] [place] [address] CO2 [Moles/Vol] 27 mmol/L Normal 21-31 [facility] Comment on above: Performed By: #### 1 6034391, 9149762 ####[facility] [address] [place] [address] Creatinine [Mass/Vol] 0.7 mg/dL Normal 0.5-1.3 [facility] Comment on above: Performed By: #### 1 5301185, 9121849 ####[facility] [address] [place] [address] Glucose [Mass/Vol] 115 mg/dL Normal 55-199 [facility] Comment on above: Result Comment: If t his glucose result represents a fasting glucose, interpretation should refer to the following reference range: 55-99 mg/dL Performed By: #### 1 2888209, 0246491 ####[facility] [address] [place] [address] Potassium [Moles/Vol] 4.3 mmol/L Normal 3.5-5.3 [facility] Comment on above: Performed By: #### 1 1108839, 0718331 ####[facility] [address] [place] [address] Sodium [Moles/Vol] 137 mmol/L Normal 135-145 [facility] Comment on above: Performed By: #### 1 5132095, 0661268 ####[facility] [address] [place] [address] Urea nitrogen [Mass/Vol] 13 mg/dL Normal 5-21 [facility] Comment on above: Performed By: #### 1 6588576, 9171345 ####[facility] [address] [place] [address] Urea nitrogen/Creatinine [Mass ratio] 19 No Units Normal 10-20 [facility] Comment on above: Performed By: #### 1 8763145, 2178009 ####[facility] [address] [place] [address] CHEMISTRYOrdered By: SYSTEM SYSTEM on 07-05-2023 Anion gap [Moles/Vol] 9 mmol/L Normal 6 - 16 mEq/L [facility] Remisol Calcium [Mass/Vol] 8.2 mg/dL Low 8.9 - 11. 1 mg/dL [facility] Remisol Chloride [Moles/Vol] 105 mmol/L Normal 101 - 1 11 mmol/L [facility] Remisol CO2 [Moles/Vol] 27 mmol/L Normal 21 - 31 mmol/L [facility] Remisol Creatinine [Mass/Vol] 0.7 mg/dL Normal 0.5 - 1.3 mg/dL [facility] Remisol GFR/1.73 sq M.predicted among non-blacks MDRD (S/P/Bld) [Vol rate/Area] 90 mL/min/1.73 m2 Normal >=59mL/min/1 .73 m2 [facility] Chem S Comment on above: Interpretive Data: C hronic kidney disease could be indicated at eGFR's of less than 60 mL/min/1.73m2. Kidney failure is indicated at less than 15 mL/min/1.73m2. Glucose [Mass/Vol] 115 mg/dL Normal 55 - 199 mg/dL [facility] Remisol Comment on above: Interpretive Data: I f this glucose result represents a fasting glucose, interpretation should refer to the following reference range: 55-99 mg/dL Potassium [Moles/Vol] 4.3 mmol/L Normal 3.5 - 5.3 mmol/L [facility] Remisol Sodium [Moles/Vol] 137 mmol/L Normal 135 - 145 mmol/L [facility] Remisol Urea nitrogen [Mass/Vol] 13 mg/dL Normal 5 - 21 mg/dL [facility] Remisol Urea nitrogen/Creatinine [Mass ratio] 19 mg/mg Normal 10 - 20 [facility] Remisol CHEMISTRYOrdered By: Lab ROP User on 07-05-2023 Glucose [Mass/Vol] 79 mg/dL Normal 55 - 99 mg/dL [facility] POC Subsection Comment on above: Result Comment: Neli cain RN/ POC Username NIKHIL PAULSON Invalid Interpretation Code [facility] POC Subsection Sodium [Moles/Vol] [id number] mmol/L Invalid Interpretation Code [facility] POC Subsection Sodium [Moles/Vol] 104207426 mmol/L Invalid Interpretation Code [facility] POC Subsection Capillary Glucose POCon 06-15 Glucose [Mass/Vol] 79 mg/dL Normal 55-99 [facility] Comment on above: Result Comment: Neli PIÑA Performed By: #### 1 [id number] #### [facility] [address] [place] [address] Cardiovascular Reporton 06-15 Cardiovascular Report [id number]# 1.00TIFF [facility] Monitor Recordon 07-05-2023 Monitor Record [id number]# 1.00TIFF [facility] Monitor Record [id number]# 1.00TIFF [facility] Monitor Record [id number]# 1.00TIFF [facility] Monitor Record [id number]# 1.00TIFF [facility] Monitor Record [id number]# 1.00TIFF [facility] Operative Reporton Operative Report SURGERY DATE: [...] an exchange length J-wire. Next a 4 Egyptian sheath was placed without complications and flushed with heparinized saline. Next the right femoral vein was accessed with a single anterior stick of a Cook needle followed by placement of a short J-wire under fluoroscopic guidance. Next a 7 Egyptian sheath was placed without complications and flushed with heparinized saline. Next a balloon tip Woodruff-Lois catheter was advanced under fluoroscopic guidance into [...] by thermal was 2.57. Next a 4 Egyptian angled pigtail catheter was easily advanced into the left ventricular chamber. AO saturation was 84%. PA saturation was 46%. Simultaneous LV and wedge pressure demonstrated a large V wave indicating severe mitral regurgitation. Simultaneous LV and RV pressures demonstrated no overt evidence of pericardial constriction although the patient is in atrial fibrillation making that somewhat problematic. Woodruff-Lois catheter was then removed. The LV angiogram performed in the 30 degree right anterior oblique position demonstrated severe global LV dysfunction with an ejection fraction around 25-30%. There was severe mitral regurgitation which completely filled the left atrium after the second beat. There was no significant gradient seen on pullback. Next the pigtail catheter was exchanged over a wire for a 4 Egyptian JL5 catheter. This was easily engaged into [...] exchanged over a wire for a 4 Egyptian 3DRC catheter. This was easily engaged into the right coronary artery. There was no dampening or ventricularization upon engagement. Right coronary artery: The right coronary artery is a moderate size dominant vesse (more content not included)... [facility] Comment on above: Result Comment: Elec tronically Signed By: MARTINEZ MCMAHON, Johan Patino\.zak\Date and Time Signed: 07/05/23 11:46 EST Progress Note-Nurseon 2022 Progress Note-Nurse field laboratory operator made aware patient last dose of lovenox was given on 07/04/23 @ 2345. [facility] Progress Note-Physicianon Progress Note-Physician Assessment/Plan 73-year-old female with history of ureteral stricture with previous dilations, anxiety disorder presented with complaints of urinary hesitancy, constipation, cough and shortness of breath and was admitted to [facility] with acute paroxysmal atrial fibrillation with [...] date 07/06/23 9:00:00 EST, 07/05/23 11:13:00 EST [facility] Hospital Care/Day Moderate 35 Minutes 69446 2. Acute systolic congestive heart failure (I50.21: Acute systolic (congestive) heart failure) Acute systolic congestive heart failure?present on admission. Seen by user experience team lead. She is status post cardiac catheterization that showed mild coronary artery disease. Also showed severe mitral regurgitation and tricuspid regurgitation.. Ejection fraction of 30 to 35%. Continue on aspirin, Coreg, losartan, Lasix. Ordered: [facility] Hospital Care/Day Moderate 35 Minutes 69148 3. Severe mitral regurgitation (I34.0: Nonrheumatic mitral (valve) insufficiency) Severe mitral regurgitation?seen on cardiac catheterization. Follow-up with user experience team lead as outpatient for HAROON and then valvular repair. Ordered: [facility] Hospital Care/Day Moderate 35 Minutes 91650 4. Elevated troponin (R79.89: Other specified abnormal findings of blood chemistry) Secondary to type II non-ST segment elevation myocardial infarction from above and mild coronary artery disease.. Seen by user experience team lead and underwent cardiac catheterization that showed mild coronary artery disease. Continue on aspirin, Lipitor, and Coreg. Ordered: furosemide, 40 mg = 1 tab(s), Tab, Oral, Daily, Routine, Start date 07/06/23 9:00:00 EST, 07/05/23 11:13:00 EST [facility] Hospital Care/Day Moderate 35 Minutes 29394 5. Mild coronary artery disease (I25.10: Atherosclerotic heart disease of [place] coronary artery without angina pectoris) As seen on cardiac catheterization on 07/06/2023. Continue on Lipitor and aspirin. Ordered: [facility] Hospital Care/Day Moderate 35 Minutes 35921 6. Pleural effusion (J90: Pleural effusion, not [...] deep vein thrombosis (DVT) prophylaxis (Z79.899: Other long-term (current) drug therapy) Lovenox. Disposition: Home in a.m. to follow-up with user experience team lead and urologist. I discussed the diagnosis and plan of care with the patient at the bedside. Moderate level of MDM based on addressing above issues. This documentation was transcribed using voice recognition software. Several attempts were made to ensure accuracy. However inadvertent computerized gypsum block setter errors may be present. Nahid Serrato. Hospitalist. [...] Output This (more content not included)... Normal [facility] Comment on above: Result Comment: Elec tronically Signed By: JAZMÍN MCMAHON, Nahid\.br\Date and Time Signed: 07/05/23 11:19 EST eGFRon 07-05-2023 GFR/1.73 sq M.predicted among non-blacks MDRD (S/P/Bld) [Vol rate/Area] 90 mL/min/1.73 m2 Normal >=59 [facility] Comment on above: Order Comment: Order added by Discern Expert. Result Comment: [facility] luis kidney disease could be indicated at eGFR's of less than 60 mL/min/1.73m2. Kidney failure is indicated at less than 15 mL/min/1.73m2. Performed By: #### 1 [id number], [id number] ####[facility] [address] [place] [address] Monitor Recordon 07-04-2023 Monitor Record [id number]# 1.00TIFF Normal [facility] Monitor Record [id number]# 1.00TIFF Normal [facility] Monitor Record [id number]# 1.00TIFF Normal [facility] Monitor Record [id number]# 1.00TIFF Normal [facility] Patient Education - Texton 1 09-03-2022 Patient Education - Text Normal [facility] Progress Note-Physicianon Progress Note-Physician Assessment/Plan 73-year-old female with history of ureteral stricture with previous dilations, anxiety disorder presented with complaints of urinary hesitancy, constipation, cough and shortness of breath and was admitted to [facility] with acute paroxysmal atrial fibrillation with [...] BID, # 60 tab(s), Refills(s) 0, Pharmacy: [facility] #[id number], 165, cm, 07/02/23 21:30:00 EST, Height/Length Dosing, 55.7, kg, 07/02/23 21:30:00 EST, Weight Dosing Echo Transthoracic Complete Sbsq Hospital Care/Day Moderate 35 Minutes 94588 2. Acute systolic congestive heart failure (I50.21: Acute systolic (congestive) heart failure) Acute systolic congestive heart failure?present on admission. Cardiology is following. Ejection fraction of 30 to 35%. Cardiology is planning on cardiac catheterization for ischemic work-up in AM. Meanwhile continue on aspirin, Coreg, losartan. We will verify with user experience team lead about Lasix. Ordered: S[facility]q Hospital Care/Day Moderate 35 Minutes 81735 3. Elevated troponin (R79.89: Other specified abnormal findings of blood chemistry) Secondary to type II non-ST segment elevation myocardial infarction from above. Echocardiogram shows ejection fraction of 30 to 35%. Cook Dinner following with plans for cardiac catheterization in AM. Meanwhile continue on aspirin and Coreg. Ordered: Echo Transthoracic Complete Sbsq Hospital Care/Day Moderate 35 Minutes 14231 4. Pleural effusion (J90: Pleural effusion, not elsewhere classified) Small pleural effusion?secondary to acute systolic congestive heart failure. Supportive care. Lasix as needed. Ordered: [facility] Hospital Care/Day Moderate 35 Minutes 93697 5. Urinary hesitancy (R39.11: Hesitancy of micturition) Secondary to urethral stricture and urinary retention. She is status post Robles catheter placement. Urology consult reviewed by me. I appreciate and agreed recommendations. Patient will discharge with Robles catheter and leg bag to follow-up with urologist as outpatient. Ordered: [facility] Hospital Care/Day Moderate 35 Minutes 37882 6. Other urethral stricture, female (N35.82: Other [...] Daily, NOW, Start date 07/03/23 11:16:00 EST [facility] Hospital Care/Day Moderate 35 Minutes 71475 9. On deep vein thrombosis (DVT) prophylaxis (Z79.899: Other long-term (current) drug therapy) Lovenox. Disposition: Pending cardiac catheterization in AM. I discussed the diagnosis and plan of care with the patient at the bedside. I also spoke with the patient's daughter Mandeep over the phone. Moderate level of MDM based on addressing above issues. This documentation was transcribed using voice recognition software. Several attempts were made to ensure accuracy. However inadvertent computerized gypsum block setter errors may be present. Nahid Serrato. Hospitalist. [...] -- 176.8 (more content not included)... Normal [facility] Comment on above: Result Comment: Elec [...] deep vein thrombosis (DVT) prophylaxis (Z79.899: Other intermediate manager (current) drug therapy) Urinary retention (R33.9: Retention [...] PRN f (more content not included)... Normal [facility] Comment on above: Result Comment: Elec tronically Signed By: MARTINEZ MCMAHON, Johan Patino\.br\Date and Time Signed: 07/04/23 08:04 EST CHEMISTRYOrdered By: SYSTEM SYSTEM on 07-03-2023 Cholesterol [Mass/Vol] 145 mg/dL Normal 120 - 200 mg/dL [facility] Remisol Cholesterol in HDL [Mass/Vol] 43 mg/dL [...] 3.83 m[IU]/L Normal 0.34 - 5.60 mcIU/mL [facility] Remisol CHEMISTRYOrdered By: Dulce Maria Correa on 07-03-2023 HbA1c (Bld) [Mass fraction] 5.5 % Normal <=5.9% [facility] ChemAutoSS Consultation Noteon 07-03-20 Consultation Note Patient: [...] day(s), # 14 cap(s), Refills(s) 0, Pharmacy: [facility] #[id number], 165, cm, 06/30/23 19:37:00 EST, Height/Length Dosing, 55.7, kg, 06/30/23 19:37:00 EST, Weight Dosing Cipro 500 mg Tab: 500 mg = 1 tab(s), Oral, As Directed, Patient to take 1 tab the day before procedure and the 2nd tab the day of procedure once completed, # 2 tab(s), Refills(s) 0, Pharmacy: [facility] #[id number], 165, cm, 04/26/23 15:23:00 EDT, Height/Length Do... Estrace 0.1 mg/g Cream: 0.5 gm, Vaginal, MonFri, 42.5 gm, Refill(s) 6 Zofran ODT 4 mg Tab-Dis: 4 mg = 1 tab(s), Oral, q8hr, # 12 tab(s), Refills(s) 0, Pharmacy: [facility] #[id number], 165, cm, 06/30/23 19:37:00 EST, Height/Length Dosing, 55.7, kg, 06/30/23 19:37:00 EST, Weight Dosing Documented Medications Documented Ativan 0.5 mg Tab: 0.5 mg = 1 tab(s), Oral, TID, PRN as needed for anxiety, Refills(s) 0 Problem list: All Problems acid reflux / SNOMED CT 667057618 / Confirmed anxiety / SNOMED CT 72871402 / Confirmed Injury of nose / SNOMED CT 57909176 / Confirmed Superficial laceration of face / SNOMED CT 335720361 / Confirmed Acute gastroenteritis / SNOMED CT 379613754 / Confirmed Other urethral stricture, female / SNOMED CT 121343127 / Confirmed Nocturia / SNOMED CT 700776156 / Confirmed Urinary hesitancy / SNOMED CT 448869013 / Confirmed Former smoker / SNOMED CT 76588743 / Confirmed Urinary frequency / SNOMED CT 130638140 / Confirmed Feeling of incomplete bladder emptying / SNOMED CT 651630572 / Confirmed Urinary urgency / SNOMED CT 255560802 / Confirmed Dysuria / SNOMED CT 69178215 / Confirmed Suprapubic pain / SNOMED CT 890834983 / Confirmed Poor urinary stream / SNOMED CT 211960068 / Confirmed Cystocele with prolapse / SNOMED CT 127923116 / Confirmed Stranguria / SNOMED CT 071569774 / Confirmed History of urethral stricture / SNOMED CT 536569653 / Confirmed Weak urine stream / SNOMED CT 236255348 / Confirmed Atrophic vaginitis / SNOMED CT 49895476 / Confirmed Renal lesion / SNOMED CT 5354360741 / Confirmed Histories Past Medical History: Active acid reflux (097704966) anxiety (81243008) Acute gastroenteritis (829080288) Family History: Heart disease Father Diabetes mellitus type 2 Mother Procedure history: Cystourethroscopy with dilation of urethral stricture (770589758) on 10/25/2022 at 72 Years. Cystoscopy/UD (53952085) on 02/23/2021 at 70 Years. Dilation of urethra (64814212) on 02/01/2019 at 68 Years. Cysto/ UD (605911787) on 10/10/2017 at 67 Years. Hysterectomy. colon resection. Corneal implant (295360259). Tonsillectomy (592451256). Dilation of urethra (62950315). Comments: 08/09/2019 13:23 EST - Darshan SALAS, Tim Velazco (more content not included)... Normal [facility] Comment on above: Result Comment: Elec tronically Signed By: DYLAN MCMAHON, Cody Maguire.br\Date and Time Signed: 07/03/23 19:12 EST ED Clinical Summaryon 2022 ED Clinical Summary [place] [address] ED Clinical Summary Person Information Name: HARJIT ASENCIO I Patricia/[facility]_Ideal Age: 73 Years : 1950 Sex: Female Language: Citizen Of [place] PCP: Aravind MCMAHON, Peggy Mcmillan Marital Status: Visit Id: Visit Reason: Genitourinary problem; 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 Speciality: Acuity: 3 Enc Type: Observation Med Service: Emergency Arrival: 07/02/2023 21:17:31 Discharge: LOS: 000 05:33 Checkin: 07/02/2023 21:17:31 Checkout: 07/03/2023 02:50:11 Dispo Type: Admitted as IP to this [facility] EVENTS: Event Name Event Status [...] 02:36:18 07/03/2023 02:36:18 07/03/2023 02:36:19 ADDRESS: [address] [place] [id number] PHYS DOC NOTES: MEDICAL INFORMATION: Prescriptions Given: [...] RVR; 3:New onset a-fib; 4:Elevated troponin [facility] ED Note-Physicianon 07-03-20 ED Note-Physician Basic Information Time Seen: Yvette Vasquez, José Luispamela Debora 07/02/2023 21:51 Chief Complaint Pt presents to [...] and Complexity of Problems Differential Diagnosis: [] [facility] Data External documents reviewed: [] My [...] 0.9% intrave (more content not included)... Normal [facility] Comment on above: Result Comment: Elec tronically Signed By: Layton Crawford M.D.\.br\Date and Time Signed: 07/03/23 08:17 EST ED Patient Education Noteon 07-03-2023 ED Patient Education Note Normal [facility] ED Patient Summaryon 023 ED Patient Summary [place] [id number] Patient Discharge Instructions Person Information Name: HARJIT ASENCIO I Age: 73 Years Arrival Date: 07/02/2023 21:17:31 Discharge Diagnosis: 1:Urinary hesitancy; 2:Atrial fibrillation with RVR; 3:New onset a-fib; 4:Elevated troponin Primary Care Physician: Peggy Nazario MD Provider Information Primary Provider: Layton Crawford M.D. Advanced Payloader Operator:None The exam and treatment you received in the Emergency Department were for an urgent problem and are not intended as complete care. It is important that you follow up with a doctor, nurse practitioner, or physician?s geriatric assistant for ongoing care. If your symptoms [...] opioids can be used to help relieve clpggext-zk-peeizf pain and are often prescribed following a [...] be struggling with addiction, tell your health before and after school daycare worker and ask for guidance or call SAMHSA?S National Helpline at 3-478-037-ZIYP. v Source: [place] Department of Health and Human Services/Center for Disease Control & Prevention [facility] (more content not included)... Normal [facility] Hep Func Panelon 07-03-2023 Albumin [Mass/Vol] 3.8 g/dL Normal 3.3-5.0 [facility] Comment on above: Performed By: #### 1 3913081, 9154825, 5078902, 3255683, 7492476, 10233016, 7510808 ####[facility] [address] [place] [address] Albumin/Globulin (S) [Mass conc ratio] 1.3 Normal 1.1-2.2 [facility] Comment on above: Performed By: #### 1 6257696, 8326109, 8440533, 1234933, 8851272, 88710267, 4038208 ####[place] [address] [place] [address] ALP [Catalytic activity/Vol] 58 Int._Unit/L Normal 21-98 [facility] Comment on above: Performed By: #### 1 4572569, 5399533, 8222118, 5852579, 2539575, 96765939, 3036998 ####[place] [address] [place] [address] ALT No additional P-5'-P [Catalytic activity/Vol] 66 Int._Unit/L High 6-46 [facility] Comment on above: Performed By: #### 1 0531093, 1726043, 8172195, 9466699, 2485705, 86218143, 1818031 ####[place] [address] [place] [address] AST [Catalytic activity/Vol] 81 Int._Unit/L High 5-43 [facility] Comment on above: Performed By: #### 1 1331143, 0571600, 5593504, 2695821, 3684829, 34084549, 8115417 ####[place] [place] [address] Bilirubin [Mass/Vol] 0.5 mg/dL Normal 0.0-1.1 [facility] Comment on above: Performed By: #### 1 6575217, 1832666, 9181997, 1354341, 8311473, 16503229, 9357961 ####[facility] [address] [place] [address] Bilirubin.direct [Mass/Vol] 0.1 mg/dL Normal 0.1-0.4 [facility] Comment on above: Performed By: #### 1 9249976, 2892629, 3531831, 0627517, 3515707, 95413817, 1039818 ####[facility] [address] [place] [address] Bilirubin.indirect [Mass or moles/Vol] 0.4 mg/dL Normal 0.1-0.9 [facility] Comment on above: Performed By: #### 1 2544988, 4513313, 4726475, 5537800, 4458820, 18734890, 5934467 ####[facility] [address] [place] [address] Globulin (S) [Mass/Vol] 2.9 g/dL Normal 1.4-4.0 [facility] Comment on above: Performed By: #### 1 5707746, 0414718, 3488473, 2133486, 8346028, 39428223, 5224518 ####[facility] [address] [place] [address] Protein [Mass/Vol] 6.7 g/dL Normal 6.0-7.8 [facility] Comment on above: Performed By: #### 1 6932237, 0170018, 4886922, 1382814, 9042490, 25212690, 5396321 ####[facility] [address] [place] [address] XfgA2app 07-03-2023 HbA1c (Bld) [Mass fraction] 5.5 % Normal <=5.9 [facility] Comment on above: Performed By: #### 2 734668, 08863933, 2562548, 6126788, 8916767, 0428652 #### [facility] [address] [place] [address] Interdisciplinary Note - Tico e Manageron 07-03-2023 Interdisciplinary Note - Tester [employer]ak[employer] CRM to room to discuss DC planning. [...] needs for HH, PM or DME at [place]. Patient was provided CRM contact, cortez board updated. Anticipated DC TBD. CRM following Normal [facility] Comment on above: Result Comment: Elec tronically Signed By: Brigitte Nazario\.br\Date and Time Signed: 07/03/23 13:05 EST Lipid Panelon 07-03-2023 Cholesterol [Mass/Vol] 145 mg/dL Normal 120-200 [facility] Comment on above: Performed By: #### 2 164949, 47572523, 6024401, 2426692, 5697509, 4548054 #### [facility] [address] [place] [address] Cholesterol in HDL [Mass/Vol] 43 mg/dL Invalid Interpretation Code [facility] Comment on above: Result Comment: HDL > or equal to 60 mg/dL: Low cardiovascular risk HDL < 40 mg/dL : High cardiovascular risk Performed By: #### 2 052852, 64369946, 4562119, 1464953, 0212594, 1827139 #### [facility] [address] [place] [address] Cholesterol in LDL [Mass/Vol] 99 mg/dL Normal <=129 [facility] Comment on above: Performed By: #### 2 385251, 54090113, 0711810, 4809675, 3306681, 2204346 #### [facility] [address] [place] [address] Cholesterol in VLDL [Mass/Vol] 17 mg/dL Normal 7-40 [facility] Comment on above: Performed By: #### 2 548757, 62520162, 7313359, 1919418, 4922917, 0559065 #### [facility] [address] [place] [address] Triglyceride [Mass/Vol] 85 mg/dL Normal <=149 [facility] Comment on above: Performed By: #### 2 125680, 55450189, 1770284, 3941652, 2925754, 0836774 #### [facility] [address] [place] [address] Magnesiumon 07-03-2023 Magnesium [Mass/Vol] 2.0 mg/dL Normal 1.3-2.4 [facility] Comment on above: Performed By: #### 1 7178692, 2740720, 6895213, 6899028, 0425066, 50815884, 8564903 ####[facility] [address] [place] [address] Message from Medicareon - Message from Medicare [id number]# 1.00TIFF Normal [facility] Monitor Recordon 07-03-2023 Monitor Record [id number]# 1.00TIFF Normal [facility] Monitor Record [id number]# 1.00TIFF Normal [facility] Monitor Record [id number]# 1.00TIFF Normal [facility] Progress Note-Physicianon Progress Note-Physician Assessment/Plan 73-year-old [...] Complete Sbsq Hospital Care/Day Moderate 35 Minutes 33389 2. Elevated troponin (R79.89: Other specified abnormal findings of blood chemistry) Secondary to type II non-ST segment elevation myocardial infarction from above. Echocardiogram ordered. Cardiology consult pending. Continue on aspirin. Ordered: Echo Transthoracic Complete Sbsq Hospital Care/Day Moderate 35 Minutes 06156 3. Urinary hesitancy (R39.11: Hesitancy of micturition) Secondary to urethral stricture. Patient is status post Robles catheter placement for urinary retention. She will follow-up with urologist as outpatient. Ordered: [facility] Hospital Care/Day Moderate 35 Minutes 89729 4. Constipation (K59.00: Constipation, unspecified) Started patient on MiraLAX and lactulose. Ordered: lactulose, 20 gram = 30 mL, Syrup, Oral, Once, Stop date 07/03/23 12:00:00 EST, Routine, Start date 07/03/23 12:00:00 EST, 07/03/23 12:00:00 EST polyethylene glycol 3350, 17 gram = 1 EA, Powder-Recon, Oral, Daily, Routine, Start date 07/03/23 12:00:00 EST, 07/03/23 12:00:00 EST [facility] Hospital Care/Day Moderate 35 Minutes 92029 5. Other urethral stricture, female (N35.82: Other urethral stricture, female) Resulting in urinary retention. Patient is status post Robles catheter during this admission. Gets dilation of the ureter every 6 months. Urology consult pending. 6. On deep vein thrombosis (DVT) prophylaxis (Z79.899: Other intermediate manager (current) drug therapy) Lovenox. Disposition: Pending echocardiogram, cardiology and urology consult. I discussed the diagnosis and plan of care with the patient at the bedside. Moderate level of MDM based on addressing above issues. This documentation was transcribed using voice recognition software. Several attempts were made to ensure accuracy. However inadvertent computerized gypsum block setter errors may be present. Nahid Serrato. Hospitalist. [...] 22:10:00) Lymph Auto: 15.3 % (07/02/23 22:10:00) [place] Auto: 7.7 % (07/02/23 22:10:00) Eos Auto: 0 % (07/02/23 22:10:00) Baso (more content not included)... [facility] Comment on above: Result Comment: Elec tronically Signed By: JAZMÍN MCMAHON, Nahid\.br\Date and Time Signed: 07/03/23 10:57 EST TSH With T4fr Reflexon 07-03 TSH Qn 3.83 m[IU]/L Normal 0.34-5.60 [facility] Comment on above: Performed By: #### 2 304430, 46099574, 3782512, 4042062, 3062442, 9939023 #### [facility] [address] [place] [address] Troponinon 07-03-2023 Troponin I.cardiac [Mass/Vol] 27.10 pg/mL Normal 10.10-27.10 [facility] Comment on above: Result Comment: The 95% CI (Confidence Interval) PPV (Positive Predictive Value) for myocardial infarction in females is 38 pg/mL, in males 51 pg/mL. The results should be used in conjunction with clinical conditions of myocardial infarction. (Access High Sensitivity Troponin I Instructions For Use, [employer], March 2018) Performed By: #### 2 097039, 79202176, 8205009, 8851435, 9413943, 3569138 #### [facility] [address] [place] [address] Troponin 0 Hr.on 07-03-2023 Troponin I.cardiac [Mass/Vol] 27.30 pg/mL High 10.10-27.10 [facility] Comment on above: Result Comment: The 95% CI (Confidence Interval) PPV (Positive Predictive Value) for myocardial infarction in females is 38 pg/mL, in males 51 pg/mL. The results should be used in conjunction with clinical conditions of myocardial infarction. (Access High Sensitivity Troponin I Instructions For Use, [employer], March 2018) Performed By: #### 1 7612296, 2795235, 1627010, 7289276, 9255725, 19754397, 4145741 ####[facility] [address] [place] [address] Troponin 3 Hr.Ordered By: [employer] SYSTEM on 07-03-2023 Troponin I.cardiac [Mass/Vol] 27.70 pg/mL High 10.10-27.10 [facility] Remisol Comment on above: Interpretive Data: T he 95% CI (Confidence Interval) PPV (Positive Predictive Value) for myocardial infarction in females is 38 pg/mL, in males 51 pg/mL. The results should be used in conjunction with clinical conditions of myocardial infarction. (Access High Sensitivity Troponin I Instructions For Use, [employer], March 2018) Result Comment: The 95% CI (Confidence Interval) PPV (Positive Predictive Value) for myocardial infarction in females is 38 pg/mL, in males 51 pg/mL. The results should be used in conjunction with clinical conditions of myocardial infarction. ([employer] High Sensitivity Troponin I Instructions For Use, Celletra, March 2018) Performed By: #### 2 992751, 28422247, 1595843, 0208243, 8125917, 5181423 #### [facility] [address] [place] [address] XR Chest Single Viewon 07-03 XR Chest [...] mGy = na DAP = na Normal [facility] Auto Diffon 07-02-2023 Basophils/100 WBC (Bld) 0.3 % Normal 0.0-2.0 [facility] Comment on above: Order Comment: Order Added by Discern Expert. Performed By: #### 1 9443094, 9575438, 3656364, 0252397, 7419790, 26344199, 4440998 ####[place] [address] [place] [address] Basophils/Leukocytes Auto (Bld) [Pure # fraction] 0.0 E9/L Normal 0.0-0.2 [facility] Comment on above: Order Comment: Order Added by Discern Expert. Performed By: #### 1 9318818, 1403902, 0743378, 2499278, 4521358, 58436912, 1277119 ####[address] [address] Eosinophils/100 WBC (Bld) 0.0 % Normal 0.0-8.0 [facility] Comment on above: Order Comment: Order Added by Discern Expert. Performed By: #### 1 3755853, 0620339, 8226809, 7758874, 5085720, 20875027, 4374130 ####[address] [address] Eosinophils/Leukocyte s Auto (Bld) [Pure # fraction] 0.0 E9/L Normal 0.0-0.5 [facility] Comment on above: Order Comment: Order Added by Discern Expert. Performed By: #### 1 9988950, 2326812, 0800297, 2233449, 1804131, 45610434, 5973555 ####[address] [address] Lymphocytes/100 WBC (Bld) 15.3 % Normal 14.0-50.0 [facility] Comment on above: Order Comment: Order Added by Discern Expert. Performed By: #### 1 8708915, 6311485, 0271534, 7483793, 9171442, 52869301, 5593149 ####[address] [place] [address] Lymphocytes/Leukocyte s Auto (Bld) [Pure # fraction] 0.9 E9/L Low 1.0-4.0 [facility] Comment on above: Order Comment: Order Added by Valeria Expert. Performed By: #### 1 9084597, 7507670, 2512265, 3025271, 9438332, 94068511, 9438100 ####[facility] [address] [place] [address] Monocytes/100 WBC (Bld) 7.7 % Normal 4.0-14.0 [facility] Comment on above: Order Comment: Order Added by Discern Expert. Performed By: #### 1 4764487, 1881364, 6933597, 7894790, 2256797, 01012612, 0941038 ####[facility] [address] [place] [address] Monocytes/Leukocytes Auto (Bld) [Pure # fraction] 0.5 E9/L Normal 0.2-1.0 [facility] Comment on above: Order Comment: Order Added by Valeria Expert. Performed By: #### 1 4934136, 7765440, 4358006, 6952089, 5678009, 61233797, 9019486 ####[facility] [address] [place] [address] Neutrophils/100 WBC (Bld) 76.7 % High 36.0-75.0 [facility] Comment on above: Order Comment: Order Added by Valeria Expert. Performed By: #### 1 8634203, 1371340, 4823217, 1155489, 6403308, 33212286, 2523680 ####[facility] [address] [place] [address] Neutrophils/Leukocyte s Auto (Bld) [Pure # fraction] 4.7 E9/L Normal 2.0-7.5 [facility] Comment on above: Order Comment: Order Added by Valeria Expert. Performed By: #### 1 3457766, 5871697, 5101457, 3023895, 8153853, 06928542, 2831439 ####[facility] [address] [place] [address] BMPon 07-02-2023 Creatinine [Mass/Vol] 1.0 mg/dL Normal 0.5-1.3 [facility] her [facility] Comment on above: Performed By: #### 1 8291684, 8125063, 8724814, 3143553, 3805039, 10915076, 0285538 ####[facility] [address] [place] [address] Urea nitrogen [Mass/Vol] 13 mg/dL Normal 5-21 [facility] Comment on above: Performed By: #### 1 4701211, 7430550, 2206786, 9000635, 3207926, 84735005, 3958508 ####[facility] [address] [place] [address] Urea nitrogen/Creatinine [Mass ratio] 13 No Units Normal 10-20 [facility] Comment on above: Performed By: #### 1 4383092, 5701252, 8147307, 2731981, 9900778, 18963815, 0726214 ####[facility] [address] [place] [address] Anion gap [Moles/Vol] 13 mmol/L Normal 6-16 [facility] Comment on above: Performed By: #### 1 4565337, 1030082, 6273738, 8686967, 7547530, 98063665, 9350230 ####[facility] [address] [place] [address] Calcium [Mass/Vol] 9.1 mg/dL Normal 8.9-11.1 [facility] Comment on above: Performed By: #### 1 7571994, 0472028, 0589217, 1616139, 9603903, 63048847, 2402169 ####[facility] [address] [place] [address] Chloride [Moles/Vol] 100 mmol/L Low 101-111 [facility] Comment on above: Performed By: #### 1 1578212, 3588838, 2759608, 2032165, 8146099, 87086417, 1390221 ####[facility] [address] [place] [address] CO2 [Moles/Vol] 24 mmol/L Normal 21-31 [facility] Comment on above: Performed By: #### 1 1030143, 5484644, 7286325, 0320624, 5956722, 98906085, 5227100 ####[facility] [address] [place] [address] Glucose [Mass/Vol] 129 mg/dL Normal 55-199 [facility] Comment on above: Result Comment: If t his glucose result represents a fasting glucose, interpretation should refer to the following reference range: 55-99 mg/dL Performed By: #### 1 0888642, 6963988, 7257778, 4458473, 1291352, 22077499, 5403536 ####[facility] [address] [place] [address] Potassium [Moles/Vol] 3.8 mmol/L Normal 3.5-5.3 [facility] Comment on above: Performed By: #### 1 5683141, 3281160, 4212918, 8886582, 8028432, 33371581, 4488290 ####[facility] [address] [place] [address] Sodium [Moles/Vol] 133 mmol/L Low 135-145 [facility] Comment on above: Performed By: #### 1 4660842, 7846170, 1615138, 0491461, 2065416, 04515926, 5032087 ####[facility] [address] [place] [address] CBC w/ Auto Diffon 3 Erythrocyte distribution width (RBC) [Ratio] 13.5 % Normal 10.9-14.2 [facility] Comment on above: Performed By: #### 1 5304688, 2261769, 3729990, 6981997, 4043023, 36472600, 4940848 #### [facility] [address] [place] [address] Hematocrit (Bld) [Volume fraction] 38.5 % Normal 34.0-46.0 [facility] Comment on above: Performed By: #### 1 2203240, 3455971, 4652712, 9976160, 7427829, 94936749, 2111126 #### [facility] [address] [place] [address] Hemoglobin (Bld) [Mass/Vol] 12.7 g/dL Normal 12.0-16.0 [facility] Comment on above: Performed By: #### 1 1136745, 6843441, 5156765, 2591342, 6921792, 38561218, 3983059 #### [facility] [address] [place] [address] MCH (RBC) [Entitic mass] 29.7 pg Normal 27.0-34.0 [facility] Comment on above: Performed By: #### 1 7281650, 7233425, 8489372, 1356393, 6701097, 88710519, 3309559 #### [facility] [address] [place], [place] [address] MCHC (RBC) [Mass/Vol] 32.9 g/dL Normal 31.4-36.0 [facility] Comment on above: Performed By: #### 1 3539261, 8790851, 1901605, 9598632, 6534716, 45454415, 8249265 #### [facility] [address] [place] [address] MCV (RBC) [Entitic vol] 90.3 fL Normal 80.0-100.0 [facility] Comment on above: Performed By: #### 1 6357162, 7544786, 2134472, 3352270, 3983227, 35169371, 5743486 #### [facility] [address] [place] [address] Platelet mean volume (Bld) [Entitic vol] 9.1 fL Normal 6.4-10.8 [facility] Comment on above: Performed By: #### 1 7062750, 8824824, 2704602, 3717891, 3564173, 72708818, 7468160 #### [facility] [address] [place] [address] [place] [address] Platelets (Bld) [#/Vol] 183.0 E9/L Normal 150.0-500.0 [facility] Comment on above: Performed By: #### 1 2186665, 4450976, 3496757, 3044041, 7612166, 38689238, 5268189 #### [facility] [address] [place] [address] RBC (Bld) [#/Vol] 4.3 E12/L Normal 4.3-5.9 [facility] Comment on above: Performed By: #### 1 6138904, 1007838, 3772326, 4662474, 2105890, 45360618, 2909730 #### [facility] [address] [place] [address] WBC corrected for nucl RBC Auto (Bld) [#/Vol] 6.2 E9/L Normal 4.0-11.0 [facility] Comment on above: Performed By: #### 1 7767014, 5146597, 8911627, 8803905, 4651339, 73206734, 6525033 #### [facility] [address] [place] [address] CHEMISTRYOrdered By: SYSTEM SYSTEM on 07-02-2023 Albumin [...] 59 mL/min/1.73 m2 Normal >=59mL/min/1 .73 m2 [facility] Chem S Comment on above: Interpretive Data: [...] 13 mg/dL Normal 5 - 21 mg/dL [facility] Remisol Urea nitrogen/Creatinine [Mass ratio] 13 mg/mg Normal 10 - 20 [facility] COAGULATIONOrdered By: Lan Eastman on 07-02-2023 aPTT Coag (PPP) [Time] 30.2 s Normal 25.1 - 36.5 second(s) [facility] Auto Coag Comment on above: Interpretive Data: [...] the same coagulation reagent and instrumentation as [facility]. Currently there are no coagulation studies available worldwide for children to 14 days, and no normal ranges. Heparin therapeutic range (represented by Anti-Factor Xa activity of 0.2 - 0.4 U/mL) corresponds to PTT of 56.6 - 109.0 sec. INR Coag (PPP) [Relative time] 1.2 {INR} Invalid Interpretation Code [facility] Auto Coag Comment on above: Interpretive Data: I NR results are specifically intended to assess patients stabilized on long-term Anticoagulation therapy suggested INR s Less Intensive Anticoagulation 2.0 3.0 Conventional Range 3.0 4.5 PT Coag (PPP) [Time] 13.2 s High 9.4 - 1 2.5 second(s) [facility] Auto Coag Comment on above: Interpretive Data: [...] the same coagulation reagent and instrumentation as [facility]. Currently there are no coagulation studies available worldwide for children to 14 days, and no normal ranges. Consent for Treatmenton 06-14 Consent for Treatment [id number] Normal [facility] HEMATOLOGYOrdered By: SYSTEM SYSTEM on 07-02-2023 [...] Coag (PPP) [Time] 30.2 second(s) Normal 25.1-36.5 [facility] Comment on above: Result Comment: Para [...] the same coagulation reagent and instrumentation as [facility]. Currently there are no coagulation studies available worldwide for children to 14 days, and no normal ranges. Heparin therapeutic range (represented by Anti-Factor Xa activity of 0.2 - 0.4 U/mL) corresponds to PTT of 56.6 - 109.0 sec. Performed By: #### 2 215977, 40587550, 0967647, 7450296, 8637900, 3543638 #### [facility] [address] [place] [address] INR Coag (PPP) [Relative time] 1.2 {INR} Invalid Interpretation Code [facility] Comment on above: Result Comment: INR results are specifically intended to assess patients stabilized on long-term Anticoagulation therapy suggested INR?s ?Less Intensive Anticoagulation? 2.0 ? 3.0 Conventional Range 3.0 ? 4.5 Performed By: #### 2 494542, 76004729, 9886430, 4939751, 7154558, 4363029 #### [facility] [address] [place] [address] PT Coag (PPP) [Time] 13.2 second(s) High 9.4-12.5 [facility] Comment on above: Result Comment: 15 [...] the same coagulation reagent and instrumentation as [facility]. Currently there are no coagulation studies available worldwide for children to 14 days, and no normal ranges. Performed By: #### 2 959025, 74984652, 9280812, 3639564, 4023313, 9365167 #### [facility] [address] [place] [address] UA With Cult Reflexon 2022 Bacteria LM Ql (Urine sed) TRACE Normal Trace [facility] Comment on above: Order Comment: Urina ry Catheter Insertion triggered Urinalysis With Culture Reflex order by discern. Performed By: #### 2 245017, 90511353, 3319525, 4128522, 5089928, 8749992 #### [facility] [address] [place] [address] Bilirubin Ql (U) Negative Normal Negative [facility] Comment on above: Order Comment: Urina ry Catheter Insertion triggered Urinalysis With Culture Reflex order by discern. Performed By: #### 2 114639, 47553481, 3409696, 2418991, 0138650, 7852421 #### [facility] [address] [place] [address] Clarity (U) CLEAR Normal Clear [facility] Comment on above: Order Comment: Urina ry Catheter Insertion triggered Urinalysis With Culture Reflex order by discern. Performed By: #### 2 943089, 27222084, 7142132, 7703559, 2345069, 4608234 #### [facility] [address] [place] [address] Color (U) YELLOW Normal Yellow [facility] Comment on above: Order Comment: Urina ry Catheter Insertion triggered Urinalysis With Culture Reflex order by discern. Performed By: #### 2 525874, 94506115, 9711588, 9908367, 7007109, 8246054 #### [facility] [address] [place] [address] Epithelial cells.squamous LM.HPF (Urine sed) [#/Area] 9-10 Normal 0-2 [facility] Comment on above: Order Comment: Urina ry Catheter Insertion triggered Urinalysis With Culture Reflex order by discern. Performed By: #### 2 568004, 81147050, 1168139, 9604108, 4715840, 7319591 #### [facility] [address] [place] [address] Glucose Test strip (U) [Mass/Vol] Negative Normal Negative [facility] Comment on above: Order Comment: Urina ry Catheter Insertion triggered Urinalysis With Culture Reflex order by discern. Performed By: #### 2 845002, 12378945, 5684545, 2880859, 0416052, 6197821 #### [facility] [address] [place] [address] Hemoglobin Ql (U) TRACE Abnormal Negative [facility] Comment on above: Order Comment: Urina ry Catheter Insertion triggered Urinalysis With Culture Reflex order by discern. Performed By: #### 2 980505, 53417954, 7351958, 7704641, 9737234, 3644882 #### [facility] [address] [place] [address] Ketones (U) [Mass/Vol] TRACE Invalid Interpretation Code Negative [facility] Comment on above: Order Comment: Urina ry Catheter Insertion triggered Urinalysis With Culture Reflex order by discern. Performed By: #### 2 699822, 44623676, 0773995, 5945349, 6288111, 7378381 #### [facility] [address] [place] [address] [place].plasma/Lithiu m.RBC (Bld) [Mass ratio] 0-3 Normal 0-3 [facility] Comment on above: Order Comment: Urina ry Catheter Insertion triggered Urinalysis With Culture Reflex order by discern. Performed By: #### 2 000762, 24342504, 1261779, 2836790, 3517994, 6914504 #### [facility] [address] [place] [address] Mucus Ql (Urine sed) TRACE Normal [facility] Comment on above: Order Comment: Urina ry Catheter Insertion triggered Urinalysis With Culture Reflex order by discern. Performed By: #### 2 202112, 29946180, 5187285, 5754982, 4149503, 6783833 #### [facility] [address] [place] [address] Nitrite Ql (U) Negative Normal Negative [facility] Comment on above: Order Comment: Urina ry Catheter Insertion triggered Urinalysis With Culture Reflex order by discern. Performed By: #### 2 368917, 64503944, 6641905, 6152484, 8762570, 0871673 #### [facility] [address] [place] [address] pH (U) 5.5 [pH] Invalid Interpretation Code 5.0-9.0 [facility] Comment on above: Order Comment: Urina ry Catheter Insertion triggered Urinalysis With Culture Reflex order by discern. Performed By: #### 2 907092, 93017721, 2355830, 7001801, 7226947, 8708390 #### [facility] [address] [place] [address] Protein (U) [Mass/Vol] Negative Normal Negative [facility] Comment on above: Order Comment: Urina ry Catheter Insertion triggered Urinalysis With Culture Reflex order by discern. Performed By: #### 2 556394, 80955947, 8280542, 0884524, 5913647, 5320182 #### [facility] [address] [place] [address] Specific gravity (U) [Rel density] 1.025 Invalid Interpretation Code 1.005-1.030 [facility] Comment on above: Order Comment: Urina ry Catheter Insertion triggered Urinalysis With Culture Reflex order by discern. Performed By: #### 2 393465, 33442898, 4260406, 3557079, 8426565, 7826128 #### [facility] [address] [place] [address] Type of Urine collection method Robles Normal [facility] Comment on above: Order Comment: Urina ry Catheter Insertion triggered Urinalysis With Culture Reflex order by discern. Performed By: #### 2 720237, 22953957, 0174921, 7940289, 3963492, 8241986 #### [facility] [address] [place] [address] Urobilinogen Qn (U) 0.2 {Judith'U}/dL Normal 0.0-1.0 [facility] Comment on above: Order Comment: Urina ry Catheter Insertion triggered Urinalysis With Culture Reflex order by discern. Performed By: #### 2 335870, 97990333, 9200353, 7824267, 8602774, 0008163 #### [facility] [address] [place] [address] WBC Auto Ql (U) Negative Normal Negative [facility] Comment on above: Order Comment: Urina ry Catheter Insertion triggered Urinalysis With Culture Reflex order by discern. Performed By: #### 2 374616, 67657710, 6271158, 0339572, 4741963, 4628066 #### [facility] [address] [place] [address] WBC LM.HPF (Urine sed) [#/Area] 0-5 Normal 0-5 [facility] Comment on above: Order Comment: Urina ry Catheter Insertion triggered Urinalysis With Culture Reflex order by discern. Performed By: #### 2 287718, 68922847, 2826892, 5240090, 9900859, 3762622 #### [facility] [address] [place] [address] URINALYSISOrdered By: Lan Eastman on 07-02-2023 Bacteria [...] Interpretation Code Negative [facility] UA Auto SS [place].plasma/Lithiu m.RBC (Bld) [Mass ratio] 0-3 /HPF Normal [...] [facility] UA Auto SS Urobilinogen Qn (U) 0.5846323 {Judith'U}/dL Normal 0.0 - 1.0 EU/dL [facility] UA Auto SS WBC Auto Ql (U) Negative (07/02/23 10:18 PM) Normal Negative [facility] UA Auto SS WBC LM.HPF (Urine sed) [#/Area] 0-5 /HPF Normal 0-5/HPF [facility] UA Auto SS eGFRon 07-02-2023 GFR/1.73 sq M.predicted among non-blacks MDRD (S/P/Bld) [Vol rate/Area] 59 mL/min/1.73 m2 Normal >=59 [facility] Comment on above: Order Comment: Order added by Discern Expert. Result Comment: [facility] luis kidney disease could be indicated at eGFR's of less than 60 mL/min/1.73m2. Kidney failure is indicated at less than 15 mL/min/1.73m2. Performed By: #### 1 5020352, 8362546, 1080769, 6455747, 7128287, 86591656, 9121491 ####[facility] [address] [place] [address] CT Abdomen/Pelvis w/o Marylu benz 07-01-2023 CT Abdomen/Pelvis w/o Contrast Exam Date/Time: [...] Oral contrast amount in ml's: 0 Normal [facility] Discharge Instructionson Discharge Instructions [id number] Normal [facility] ED Clinical Summaryon 2022 ED Clinical Summary [address] [address] ED Clinical Summary Person Information Name: HARJIT ASENCIO I [place] Age: 73 Years : 1950 Sex: Female Language: Citizen Of [place] PCP: Peggy Nazario MD Marital Status: Visit [...] 07/01/2023 00:37:46 07/01/2023 00:37:46 07/01/2023 00:37:46 ADDRESS: [address] [facility] [id number] PHYS DOC NOTES: MEDICAL INFORMATION: Prescriptions Given: New Medications [id number], [address] [place], [place] [id number], [phone] dicyclomine (Bentyl 10 mg Cap) 1 Capsules [...] PATIENT EDUCATION INFORMATION: Instructions: Abdominal Pain, Adult, Rnoz-wb-Yfbq Follow up: With: Address: When: Peggy Nazario [address] [place] [address] Business (1) In 3 days 07/04/2023 Comments: You can use the Bentyl, Zofran every 6 hours as needed for pain and nausea. Please follow-up with your primary care doctor next 2 to 3 days for further evaluation management. Please return to the ED for any new or worsening symptoms. DIAGNOSIS: Abdominal pain, acute Normal [facility] ED Note-Physicianon 07-01-20 ED Note-Physician Basic [...] and Complexity of Problems Differential Diagnosis: [] [facility] Data External documents reviewed: [] My [...] day(s), # 14 cap(s), Refills(s) 0, Pharmacy: [facility] #[id number], 165, cm, 06/30/23 19:37:00 EST, Height/Length Dosing, [...] q8hr, # 12 tab(s), Refills(s) 0, Pharmacy: [facility] #[id number], 165, cm, 06/30/23 19:37:00 EST, Height/Length Dosing, [...] In 3 days 07/04/2023 [facility] [email or web address] [facility] [place] [address]- Business (1) Additional Instructions: You can use the Bentyl, Zofran every 6 hours as needed for pain and nausea. Please follow-up with your primary care doctor next 2 to 3 days for further evaluation management. Please return to the ED for any new or worsening symptoms. Patient Education Abdominal Pain, Adult, Tatt-ei-Yiun Problem List/Past Medical History Ongoing acid reflux Acute ga (more content not included)... Normal [facility] Comment on above: Result Comment: Elec tronically Signed By: Koby Masterson DO\.br\Date and Time Signed: 07/01/23 01:03 [facility] ED Patient Education Noteon 07-01-2023 ED Patient [...] these instructions at home: Medicines ? Take bdja-vjd-pyuhelu and prescription medicines only as told by [...] belly pain for any changes. ? Take ygtb-tkc-vsirzuv and prescription medicines only as told by [...] provider. Document Revised: 12/09/2019 Document Reviewed: 12/09/2019 [employer] Patient Education ? 2022 [employer] Normal [facility] ED Patient Summaryon 023 ED Patient Summary [address] [address] Patient Discharge Instructions Person Information Name: HARJIT ASENCIO I Age: 73 Years Arrival Date: 06/30/2023 18:48:02 Discharge Diagnosis: Abdominal pain, acute Primary Care Physician: Peggy Nazario MD Provider Information Primary Provider: Koby Masterson DO Advanced Payloader Operator:None The exam and treatment you received in the Emergency Department were for an urgent problem and are not intended as complete care. It is important that you follow up with a doctor, nurse practitioner, or physician?s geriatric assistant for ongoing care. If your symptoms [...] Instructions: With: Address: When: Peggy Nazario [address] [place] [address] Business (1) In 3 days 07/04/2023 Comments: [...] provider. Patient Education Materials: Abdominal Pain, Adult, Hood-pd-Gawh A MESSAGE TO ALL PATIENTS REGARDING OPIOIDS PRESCRIPTION OPIOIDS: WHAT YOU NEED TO KNOW Prescription opioids can be used to help relieve qzdsvmkn-nh-tovtob pain and are often prescribed following a [...] to le (more content not included)... Normal [facility] RAD - Preliminary Cat Scan R eporton 07-01-2023 RAD - Preliminary Cat Scan Report [id number] Normal [facility] Auto Diffon 06-30-2023 Basophils/100 WBC (Bld) 0.8 % Normal 0.0-2.0 [facility] Comment on above: Order Comment: Order Added by Discern Expert. Performed By: #### 2 147045, 84915884, 6980142, 9654947, 2609726, 2726305 #### [facility] [address] [place] [address] Basophils/Leukocytes Auto (Bld) [Pure # fraction] 0.0 E9/L Normal 0.0-0.2 [facility] Comment on above: Order Comment: Order Added by Discern Expert. Performed By: #### 2 775013, 55837043, 5964870, 1962614, 4157937, 4935715 #### [facility] [address] [place] [address] Eosinophils/100 WBC (Bld) 0.2 % Normal 0.0-8.0 [facility] Comment on above: Order Comment: Order Added by Discern Expert. Performed By: #### 2 526301, 93052195, 1009839, 1170071, 1240911, 3068660 #### [facility] [address] [place] [address] Eosinophils/Leukocyte s Auto (Bld) [Pure # fraction] 0.0 E9/L Normal 0.0-0.5 [facility] Comment on above: Order Comment: Order Added by Discern Expert. Performed By: #### 2 407898, 65941849, 7637042, 3914030, 2826568, 9604119 #### [facility] [address] [place] [address] Lymphocytes/100 WBC (Bld) 26.7 % Normal 14.0-50.0 [facility] Comment on above: Order Comment: Order Added by Discern Expert. Performed By: #### 2 676022, 50753955, 3399900, 2693012, 0474669, 1326919 #### [facility] [address] [place] [address] Lymphocytes/Leukocyte s Auto (Bld) [Pure # fraction] 1.2 E9/L Normal 1.0-4.0 [facility] Comment on above: Order Comment: Order Added by Discern Expert. Performed By: #### 2 591804, 38185270, 5494946, 8670263, 9100936, 8926368 #### [facility] [address] [place] [address] Monocytes/100 WBC (Bld) 9.8 % Normal 4.0-14.0 [facility] Comment on above: Order Comment: Order Added by Discern Expert. Performed By: #### 2 174377, 25257045, 0916463, 5810527, 6580039, 7639439 #### [facility] [address] [place] [address] Monocytes/Leukocytes Auto (Bld) [Pure # fraction] 0.4 E9/L Normal 0.2-1.0 [facility] Comment on above: Order Comment: Order Added by Discern Expert. Performed By: #### 2 904874, 59152377, 7281897, 9398463, 0183113, 4254079 #### [facility] [address] [place] [address] Neutrophils/100 WBC (Bld) 62.5 % Normal 36.0-75.0 [facility] Comment on above: Order Comment: Order Added by Discern Expert. Performed By: #### 2 390775, 16164108, 0898495, 6193073, 5270010, 5282244 #### [facility] [address] [place] [address] Neutrophils/Leukocyte s Auto (Bld) [Pure # fraction] 2.7 E9/L Normal 2.0-7.5 [facility] Comment on above: Order Comment: Order Added by Discern Expert. Performed By: #### 2 659370, 65812339, 3852392, 5146994, 7309652, 4737454 #### [facility] [facility] [address] [place] [address] BMPon 06-30-2023 Creatinine [Mass/Vol] 0.8 mg/dL Normal 0.5-1.3 [facility] Comment on above: Performed By: #### 2 675000, [id number], 8878554, 4851825, 2502883, 1926251 #### [facility] [address] [place] [address] Urea nitrogen [Mass/Vol] 12 mg/dL Normal 5-21 [facility] Comment on above: Performed By: #### 2 580022, 73080610, 7161450, 6687177, 5382721, 0155277 #### [facility] [address] [place] [address] Urea nitrogen/Creatinine [Mass ratio] 15 No Units Normal 10-20 [facility] Comment on above: Performed By: #### 2 893568, 76428852, 8870966, 1511649, 6152614, 7101122 #### [facility] [address] [place] [address] Anion gap [Moles/Vol] 13 mmol/L Normal 6-16 [facility] Comment on above: Performed By: #### 2 785604, 06449038, 5564947, 3198854, 4148712, 3249960 #### [facility] [address] [place] [address] Calcium [Mass/Vol] 9.5 mg/dL Normal 8.9-11.1 [facility] Comment on above: Performed By: #### 2 459754, 75057069, 2117781, 3283526, 7349989, 7624329 #### [facility] [address] [place] [address] Chloride [Moles/Vol] 103 mmol/L Normal 101-111 [facility] Comment on above: Performed By: #### 2 221589, 01329188, 2744569, 9798690, 7763734, 6735579 #### [facility] [address] [place] [address] CO2 [Moles/Vol] 27 mmol/L Normal 21-31 [facility] Comment on above: Performed By: #### 2 848376, 81746138, 6420118, 8843933, 4535480, 4547225 #### [facility] [address] [place] [address] Glucose [Mass/Vol] 110 mg/dL Normal 55-199 [facility] Comment on above: Result Comment: If t his glucose result represents a fasting glucose, interpretation should refer to the following reference range: 55-99 mg/dL Performed By: #### 2 024241, 61311117, 0117205, 8680009, 0868179, 3510392 #### [facility] [address] [place] [address] Potassium [Moles/Vol] 4.1 mmol/L Normal 3.5-5.3 [facility] Comment on above: Performed By: #### 2 833941, 23637534, 2446120, 6429570, 7362757, 1848694 #### [facility] [address] [place] [address] Sodium [Moles/Vol] 139 mmol/L Normal 135-145 [facility] Comment on above: Performed By: #### 2 857469, 08296965, 8955438, 9963365, 1138051, 6039631 #### [facility] [address] [place] [address] CBC w/ Auto Diffon 3 Erythrocyte distribution width (RBC) [Ratio] 13.7 % Normal 10.9-14.2 [facility] Comment on above: Performed By: #### 2 041308, 03629331, 4684432, 7784838, 1844305, 2855084 #### [facility] [address] [place] [address] Hematocrit (Bld) [Volume fraction] 38.0 % Normal 34.0-46.0 [facility] Comment on above: Performed By: #### 2 225521, 57728599, 1606858, 6098155, 3183027, 4097327 #### [facility] [address] [place] [address] Hemoglobin (Bld) [Mass/Vol] 12.5 g/dL Normal 12.0-16.0 [facility] Comment on above: Performed By: #### 2 640749, 32153759, 4608121, 7537051, 0275537, 8710676 #### [facility] [address] [place] [address] MCH (RBC) [Entitic mass] 29.9 pg Normal 27.0-34.0 [facility] Comment on above: Performed By: #### 2 764884, 62853883, 4261679, 7696666, 3170818, 6123975 #### [facility] [address] [place] [address] MCHC (RBC) [Mass/Vol] 32.9 g/dL Normal 31.4-36.0 [facility] Comment on above: Performed By: #### 2 635090, 92321112, 6389559, 0443713, 3860599, 4082963 #### [facility] [address] [place] [address] MCV (RBC) [Entitic vol] 90.9 fL Normal 80.0-100.0 [facility] Comment on above: Performed By: #### 2 326887, 48597877, 0437342, 7093326, 3255796, 3725539 #### [facility] [address] [place] [address] Platelet mean volume (Bld) [Entitic vol] 8.7 fL Normal 6.4-10.8 [facility] Comment on above: Performed By: #### 2 599140, 62033433, 7886918, 1327553, 4930387, 4926253 #### [facility] [address] [place] [address] Platelets (Bld) [#/Vol] 184.0 E9/L Normal 150.0-500.0 [facility] Comment on above: Performed By: #### 2 792926, 46836146, 0488648, 3529420, 4816354, 0053674 #### [facility] [address] [place] [address] RBC (Bld) [#/Vol] 4.2 E12/L Low 4.3-5.9 [facility] Comment on above: Performed By: #### 2 466247, 10701684, 9278571, 0040732, 3469197, 4210928 #### [facility] [address] [place] [address] WBC corrected for nucl RBC Auto (Bld) [#/Vol] 4.4 E9/L Normal 4.0-11.0 [facility] Comment on above: Performed By: #### 2 900974, 50970221, 0952104, 8289663, 0960880, 1220127 #### [facility] [address] [place] [address] CHEMISTRYOrdered By: SYSTEM SYSTEM on 06-30-2023 Albumin [...] 77 mL/min/1.73 m2 Normal >=59mL/min/1 .73 m2 [facility] Chem S Comment on above: Interpretive Data: [...] Treatmenton 06-14 Consent for Treatment [id number]#1 .00[facility] Consent for Treatment [id number]#1 .00[facility] HEMATOLOGYOrdered By: SYSTEM SYSTEM on 06-30-2023 [...] 4.2 E12/L Low 4.3 - 5.9 E12/L [facility] HemeAutoSS WBC corrected for nucl RBC Auto (Bld) [#/Vol] 4.4 E9/L Normal 4.0 - 11.0 E9/L [facility] HemeAutoSS Hep Func Panelon 06-30-2023 Bilirubin.indirect [Mass or moles/Vol] UTC Abnormal 0.1-0.9 [facility] Comment on above: Result Comment: Resu lt verified by Discern Rule. Performed result UT (Unable to Calculate) was sent as an Alpha code due the inability to calculate a valid numeric value. Performed By: #### 2 133037, 61003948, 3472383, 3768401, 8390863, 8241976 #### [facility] [address] [place] [address] Albumin [Mass/Vol] 3.8 g/dL Normal 3.3-5.0 [facility] Comment on above: Performed By: #### 2 595738, 30693180, 8520054, 2986752, 4991694, 3780293 #### [facility] [address] [place] [address] Albumin/Globulin (S) [Mass conc ratio] 1.3 Normal 1.1-2.2 [facility] Comment on above: Performed By: #### 2 161708, 74654301, 9937945, 4214895, 9447930, 9076123 #### [facility] [address] [place] [address] ALP [Catalytic activity/Vol] 56 Int._Unit/L Normal 21-98 [facility] Comment on above: Performed By: #### 2 814310, 24202520, 9419765, 6463470, 2016920, 3591918 #### [facility] [address] [place] [address] ALT No additional P-5'-P [Catalytic activity/Vol] 50 Int._Unit/L High 6-46 [facility] Comment on above: Performed By: #### 2 913845, 50357974, 4520435, 2871978, 7765278, 3201085 #### [facility] [address] [place] [address] AST [Catalytic activity/Vol] 45 Int._Unit/L High 5-43 [facility] Comment on above: Performed By: #### 2 098271, 37915114, 2747096, 0035605, 9149380, 3527927 #### [facility] [address] [place] [address] Bilirubin [Mass/Vol] 0.5 mg/dL Normal 0.0-1.1 [facility] Comment on above: Performed By: #### 2 021573, 29810128, 0902626, 5201629, 2419578, 8131471 #### [facility] [address] [place] [address] Globulin (S) [Mass/Vol] 3.0 g/dL Normal 1.4-4.0 [facility] Comment on above: Performed By: #### 2 914171, 49541756, 0727821, 6266776, 8442454, 8177093 #### [facility] [address] [place] [address] Protein [Mass/Vol] 6.8 g/dL Normal 6.0-7.8 [facility] Comment on above: Performed By: #### 2 516011, 83042537, 5924783, 1706674, 6673040, 8457595 #### [facility] [address] [place] [address] Bilirubin.direct [Mass/Vol] mg/dL Normal 0.1-0.4 [facility] Comment on above: Performed By: #### 2 584536, 96933643, 0663768, 0700232, 6256145, 3138380 #### [facility] [address] [place] [address] Lipase Levelon 06-30-2023 Lipase [Catalytic activity/Vol] 31 U/L Normal 13-58 [facility] Comment on above: Performed By: #### 2 082072, 09904369, 5587816, 9103108, 2502038, 7103331 #### [facility] [address] [place] [address] UA With Cult Reflexon 2022 Bacteria LM Ql (Urine sed) TRACE Normal Trace [facility] Comment on above: Performed By: #### 2 781592, 32464431, 6703371, 0145845, 2813543, 9227939 #### [facility] [address] [place] [address] Bilirubin Ql (U) Negative Normal Negative [facility] Comment on above: Performed By: #### 2 909706, 26620275, 2798194, 7702954, 3319689, 1328869 #### [facility] [address] [place] [address] Clarity (U) CLEAR Normal Clear [facility] Comment on above: Performed By: #### 2 163942, 84227534, 0076145, 4394912, 2618620, 2729013 #### [facility] [address] [place] [address] Color (U) YELLOW Normal Yellow [facility] Comment on above: Performed By: #### 2 344207, 10697938, 9133796, 6450624, 8710094, 5539212 #### [facility] [address] [place] [address] Epithelial cells.squamous LM.HPF (Urine sed) [#/Area] 0-2 Normal 0-2 [facility] Comment on above: Performed By: #### 2 320495, 02233509, 6332594, 0054586, 4106012, 2266444 #### [facility] [address] [place] [address] Glucose Test strip (U) [Mass/Vol] Negative Normal Negative [facility] Comment on above: Performed By: #### 2 126065, 39027396, 3062945, 0687881, 9698450, 5396100 #### [facility] [address] [place] [address] Hemoglobin Ql (U) TRACE Abnormal Negative [facility] Comment on above: Performed By: #### 2 897795, 75017338, 2885683, 2689268, 8467529, 0515688 #### [facility] [address] [place] [address] Ketones (U) [Mass/Vol] Negative Normal Negative [facility] Comment on above: Performed By: #### 2 839859, 57661635, 1317923, 0968053, 4333815, 3286721 #### [facility] [address] [place] [address] [place].plasma/Lithiu m.RBC (Bld) [Mass ratio] 0-3 Normal 0-3 [facility] Comment on above: Performed By: #### 2 415207, 74402640, 3345126, 2107990, 5098985, 4589529 #### [facility] [address] [place] [address] Nitrite Ql (U) Negative Normal Negative [facility] Comment on above: Performed By: #### 2 732500, 76900633, 4646656, 9156151, 1203955, 2728917 #### [facility] [address] [place] [address] pH (U) 6.5 [pH] Invalid Interpretation Code 5.0-9.0 [facility] Comment on above: Performed By: #### 2 188265, 99901049, 5072085, 3305061, 7626510, 2969138 #### [facility] [address] [place] [address] Protein (U) [Mass/Vol] Negative Normal Negative [facility] Comment on above: Performed By: #### 2 244374, 30559777, 3276013, 3341007, 0842828, 9323835 #### [facility] [address] [place] [address] Specific gravity (U) [Rel density] <=1.005 Invalid Interpretation Code 1.005-1.030 [facility] Comment on above: Performed By: #### 2 043476, 36043177, 7500007, 4181249, 5789764, 7943632 #### [facility] [address] 6[address]357 Type of Urine collection method Clean Catch Normal [facility] Comment on above: Performed By: #### 2 139611, 61486485, 3915881, 7909631, 0559338, 2666621 #### [facility] [address] [place] [address] Urobilinogen Qn (U) 0.2 {Judith'U}/dL Normal 0.0-1.0 [facility] Comment on above: Performed By: #### 2 644534, 80635468, 4140480, 9453513, 4030970, 4764674 #### [facility] [address] [place] [address] WBC Auto Ql (U) Negative Normal Negative [facility] Comment on above: Performed By: #### 2 070747, 52648512, 7272181, 3138183, 2306188, 9507447 #### [facility] [address] [place] [address] WBC LM.HPF (Urine sed) [#/Area] 0-5 Normal 0-5 [facility] Comment on above: Performed By: #### 2 646896, 61232011, 4976166, 3550683, 0763572, 5974751 #### [facility] [address] [place] [address] URINALYSISOrdered By: Brian Davis on 06-30-2023 Bacteria [...] PM) Normal Negative [facility] UA Auto SS [place].plasma/Lithiu m.RBC (Bld) [Mass ratio] 0-3 /HPF Normal [...] [facility] UA Auto SS Urobilinogen Qn (U) 0.3234121 {Judith'U}/dL Normal 0.0 - 1.0 EU/dL [facility] UA Auto SS WBC Auto Ql (U) Negative (06/30/23 8:00 PM) Normal Negative [facility] UA Auto SS WBC LM.HPF (Urine sed) [#/Area] 0-5 /HPF Normal 0-5/HPF [facility] UA Auto SS eGFRon 06-30-2023 GFR/1.73 sq M.predicted among non-blacks MDRD (S/P/Bld) [Vol rate/Area] 77 mL/min/1.73 m2 Normal >=59 [facility] Comment on above: Order Comment: Order added by Discern Expert. Result Comment: [facility] luis kidney disease could be indicated at eGFR's of less than 60 mL/min/1.73m2. Kidney failure is indicated at less than 15 mL/min/1.73m2. Performed By: #### 2 326652, 54924617, 6151393, 1843912, 7058445, 8253287 #### [facility] [address] [place] [address] URINALYSISOrdered By: Lan Eastman on 01-28-2023 Bilirubin [...] PM) Normal Negative [facility] UA Auto SS [place].plasma/Lithiu m.RBC (Bld) [Mass ratio] 0-3 /HPF Normal [...] [facility] UA Auto SS Urobilinogen Qn (U) 1.5875486 {Judith'U}/dL Normal 0.0 - 1.0 EU/dL [facility] UA Auto SS WBC Auto Ql (U) Negative (01/28/23 11:04 PM) Normal Negative [facility] UA Auto SS WBC LM.HPF (Urine sed) [#/Area] 0-5 /HPF Normal 0-5/HPF [facility] UA Auto SS Q - SARS CoV2 COVID 19 Ab Ig Clarence 08-20-2021 SARS-CoV-2 (COVID-19) Ab IA Qn 25.84 index High <1.00 [facility] [employer] Comment on above: Order Comment: [facility] performed at: [employer], [employer] [facility], [address] [facility], [address] [place], [address], Hiv Prevention Specialist: Ab Vincent MD [facility] Collection Date/Time: [...] providers and patients using the following websites: [email or web address] Healthcare Providers: For additional information please refer to: http://education.[employer]/faq/MHF970 (This link is being provided for informational/educational purposes only.) This test has been authorized by the FDA under an Emergency Use Authorization (EUA) for use by authorized laboratories. The FDA authorized labeling is available on the [employer] website: www.[employer]/Covid19. Performed By: #### 3 4499 #### [facility] [address] [place] [address] Reference Laboratory Testing Ordered By: [facility] [employer] MetricsUser on 08-12-2021 SARS-CoV-2 (COVID-19) RNA JORDAN+probe Ql (Resp) Not detected Invalid Interpretation Code Not Detected [facility] [employer] Comment on above: Result Comment: This nucleic acid amplification test was developed and its performance characteristics determined by [employer]. Nucleic acid amplification tests include RT-PCR and [...] detected) result in this assay. Performed at: [address] [id number] PhD Emily Fraser Vital Signs Date Time Vital Sign Value Performing Clinician Layo lora 05-14-2025 11:36-0400 Body height 160 cm Hannah Brian MD Work Phone: [facility] 05-14-2025 11:36-0400 Body mass index (BMI) [Ratio] 23.03 kg/m2 Hannah Brian MD Work Phone: [facility] 05-14-2025 11:36-0400 Body temperature 98.2 [degF] Hannah Brian MD Work Phone: [facility] 05-14-2025 11:36-0400 Body weight 58.97 kg Hannah Brian MD Work Phone: [facility] 05-14-2025 11:36-0400 Diastolic blood pressure 78 mm[Hg] Hannah Brian MD Work Phone: [facility] 05-14-2025 11:36-0400 Heart rate 72 /min Hannah Brian MD Work Phone: [facility] 05-14-2025 11:36-0400 SaO2% (BldA) [Mass fraction] 97 % Hannah Brian MD Work Phone: [facility] 05-14-2025 11:36-0400 Systolic blood pressure 128 mm[Hg] Hannah Brian MD Work Phone: [facility] 05-08-2025 14:26-0400 Body height 160 cm Hannah Brian MD Work Phone: [facility] 05-08-2025 14:26-0400 Body mass index (BMI) [Ratio] 23.17 kg/m2 Hannah Brian MD Work Phone: [facility] 05-08-2025 14:26-0400 Body temperature 98.29 [degF] Hannah Brian MD Work Phone: [facility] 05-08-2025 14:26-0400 Body weight 59.33 kg Hannah Brian MD Work Phone: [facility] 05-08-2025 14:26-0400 Diastolic blood pressure 78 mm[Hg] Hannah Brian MD Work Phone: [facility] 05-08-2025 14:26-0400 Heart rate 71 /min Hannah Brian MD Work Phone: [facility] 05-08-2025 14:26-0400 SaO2% (BldA) [Mass fraction] 98 % Hannah Brian MD Work Phone: [facility] 05-08-2025 14:26-0400 Systolic blood pressure 118 mm[Hg] Hannah Brian MD Work Phone: [facility] 04-21-2025 15:21-0400 Body height 160 cm Hannah Brian MD Work Phone: [facility] 04-21-2025 15:21-0400 Body mass index (BMI) [Ratio] 23.13 kg/m2 Hannah Brian MD Work Phone: [facility] 04-21-2025 15:21-0400 Body temperature 97.81 [degF] Hannah Brian MD Work Phone: [facility] 04-21-2025 15:21-0400 Body weight 59.24 kg Hannah Brian MD Work Phone: [facility] 04-21-2025 15:21-0400 Diastolic blood pressure 80 mm[Hg] Hannah Brian MD Work Phone: [facility] 04-21-2025 15:21-0400 Heart rate 71 /min Hannah Brian MD Work Phone: [facility] 04-21-2025 15:21-0400 SaO2% (BldA) [Mass fraction] 97 % Hannah Brian MD Work Phone: [facility] 04-21-2025 15:21-0400 Systolic blood pressure 120 mm[Hg] Hannah Brian MD Work Phone: [facility] 04-07-2025 13:46-0400 Body height 160 cm Hannah Brian MD Work Phone: [facility] 04-07-2025 13:46-0400 Body mass index (BMI) [Ratio] 23.6 kg/m2 Hannah Brian MD Work Phone: [facility] 04-07-2025 13:46-0400 Body temperature 98.2 [degF] Hannah Brian MD Work Phone: [facility] 04-07-2025 13:46-0400 Body weight 60.42 kg Hannah Brian MD Work Phone: [facility] 04-07-2025 13:46-0400 Diastolic blood pressure 62 mm[Hg] Hannah Brian MD Work Phone: [facility] 04-07-2025 13:46-0400 Heart rate 68 /min Hannah Brian MD Work Phone: [facility] 04-07-2025 13:46-0400 SaO2% (BldA) [Mass fraction] 99 % Hannah Brian MD Work Phone: [facility] 04-07-2025 13:46-0400 Systolic blood pressure 128 mm[Hg] Hannah Brian MD Work Phone: [facility] 01-22-2025 13:56-0400 Body height 160 cm Hannah Brian MD Work Phone: [facility] 01-22-2025 13:56-0400 Body mass index (BMI) [Ratio] 23.91 kg/m2 Hannah Brian MD Work Phone: [facility] 01-22-2025 13:56-0400 Body temperature 98.01 [degF] Hannah Brian MD Work Phone: [facility] 01-22-2025 13:56-0400 Body weight 61.24 kg Hannah Brian MD Work Phone: [facility] 01-22-2025 13:56-0400 Diastolic blood pressure 60 mm[Hg] Hannah Brian MD Work Phone: [facility] 01-22-2025 13:56-0400 Heart rate 70 /min Hannah Brian MD Work Phone: [facility] 01-22-2025 13:56-0400 SaO2% (BldA) [Mass fraction] 99 % Hannah Brian MD Work Phone: [facility] 01-22-2025 13:56-0400 Systolic blood pressure 138 mm[Hg] Hannah Brian MD Work Phone: [facility] 01-07-2025 15:47-0400 Body height 160 cm Hannah Brian MD Work Phone: [facility] 01-07-2025 15:47-0400 Body mass index (BMI) [Ratio] 23.95 kg/m2 Hannah Brian MD Work Phone: [facility] 01-07-2025 15:47-0400 Body temperature 97.9 [degF] Hannah Brian MD Work Phone: [facility] 01-07-2025 15:47-0400 Body weight 61.33 kg Hannah Brian MD Work Phone: [facility] 01-07-2025 15:47-0400 Diastolic blood pressure 70 mm[Hg] Hannah Brian MD Work Phone: [facility] 01-07-2025 15:47-0400 Heart rate 70 /min Hannah Brian MD Work Phone: [facility] 01-07-2025 15:47-0400 SaO2% (BldA) [Mass fraction] 97 % Hannah Brian MD Work Phone: [facility] 01-07-2025 15:47-0400 Systolic blood pressure 120 mm[Hg] Hannah Brian MD Work Phone: [facility] 12-17-2024 15:23-0400 Body height 160 cm Hannah Brian MD Work Phone: [facility] 12-17-2024 15:23-0400 Body mass index (BMI) [Ratio] 24.09 kg/m2 Hannah Brian MD Work Phone: [facility] 12-17-2024 15:23-0400 Body temperature 97.5 [degF] Hannah Brian MD Work Phone: [facility] 12-17-2024 15:23-0400 Body weight 61.69 kg Hannah Brian MD Work Phone: [facility] 12-17-2024 15:23-0400 Diastolic blood pressure 80 mm[Hg] Hannah Brian MD Work Phone: [facility] 12-17-2024 15:23-0400 Heart rate 74 /min Hannah Brian MD Work Phone: [facility] 12-17-2024 15:23-0400 SaO2% (BldA) [Mass fraction] 99 % Hannah Brian MD Work Phone: [facility] 12-17-2024 15:23-0400 Systolic blood pressure 128 mm[Hg] Hannah Brian MD Work Phone: [facility] 11-25-2024 11:32-0400 Body height 160 cm Hannah Brian MD Work Phone: [facility] 11-25-2024 11:32-0400 Body mass index (BMI) [Ratio] 24.45 kg/m2 Hannah Brian MD Work Phone: [facility] 11-25-2024 11:32-0400 Body temperature 97.81 [degF] Hannah Brian MD Work Phone: [facility] 11-25-2024 11:32-0400 Body weight 62.6 kg Hannah Brian MD Work Phone: [facility] 11-25-2024 11:32-0400 Diastolic blood pressure 60 mm[Hg] Hannah Brian MD Work Phone: [facility] 11-25-2024 11:32-0400 Heart rate 75 /min Hannha Brian MD Work Phone: [facility] 11-25-2024 11:32-0400 SaO2% (BldA) [Mass fraction] 96 % Hannah Brian MD Work Phone: [facility] 11-25-2024 11:32-0400 Systolic blood pressure 124 mm[Hg] Hannah Brian MD Work Phone: [facility] 11-18-2024 11:43-0400 Body height 160 cm Hannah Brian MD Work Phone: [facility] 11-18-2024 11:43-0400 Body mass index (BMI) [Ratio] 23.91 kg/m2 Hannah Brian MD Work Phone: [facility] 11-18-2024 11:43-0400 Body temperature 97.81 [degF] Hannah Brian MD Work Phone: [facility] 11-18-2024 11:43-0400 Body weight 61.24 kg Hannah Brian MD Work Phone: [facility] 11-18-2024 11:43-0400 Diastolic blood pressure 60 mm[Hg] Hannah Brian MD Work Phone: [facility] 11-18-2024 11:43-0400 Heart rate 70 /min Hannah Brian MD Work Phone: [facility] 11-18-2024 11:43-0400 SaO2% (BldA) [Mass fraction] 98 % Hannah Brian MD Work Phone: [facility] 11-18-2024 11:43-0400 Systolic blood pressure 120 mm[Hg] Hannah Brian MD Work Phone: [facility] 10-08-2024 12:58-0500 Body height 160 cm Sherlyn Shine PA Work Phone: [facility] 10-08-2024 12:58-0500 Body mass index (BMI) [Ratio] 23.91 kg/m2 Sherlyn Shine PA Work Phone: [facility] 10-08-2024 12:58-0500 Body temperature 97.9 [degF] Sherlyn Shine PA Work Phone: [facility] 10-08-2024 12:58-0500 Body weight 61.24 kg Sherlyn Shine PA Work Phone: [facility] 10-08-2024 12:58-0500 Diastolic blood pressure 70 mm[Hg] Sherlyn Shine PA Work Phone: [facility] 10-08-2024 12:58-0500 Heart rate 70 /min Sherlyn Shine PA Work Phone: [facility] 10-08-2024 12:58-0500 SaO2% (BldA) [Mass fraction] 97 % Sherlyn Shine PA Work Phone: [facility] 10-08-2024 12:58-0500 Systolic blood pressure 120 mm[Hg] Sherlyn Shine PA Work Phone: [facility] 08-12-2024 16:09-0500 Body height 161.3 cm Rickie Aviles SUPERINTENDENT STEVEDORING Work Phone: [facility] 08-12-2024 16:09-0500 Body mass index (BMI) [Ratio] 22.39 kg/m2 Rickie Aviles SUPERINTENDENT STEVEDORING Work Phone: [facility] 08-12-2024 16:09-0500 Body temperature 97.7 [degF] Rickie Aviles SUPERINTENDENT STEVEDORING Work Phone: [facility] 08-12-2024 16:09-0500 Body weight 58.24 kg Rickie Braunnamiller SUPERINTENDENT STEVEDORING Work Phone: [facility] 08-12-2024 16:09-0500 Diastolic blood pressure 70 mm[Hg] Rickie Donnamiller SUPERINTENDENT STEVEDORING Work Phone: [facility] 08-12-2024 16:09-0500 Heart rate 73 /min Rickie Kumariller SUPERINTENDENT STEVEDORING Work Phone: [facility] 08-12-2024 16:09-0500 SaO2% (BldA) [Mass fraction] 99 % Rickie Kumariller SUPERINTENDENT STEVEDORING Work Phone: [facility] 08-12-2024 16:09-0500 Systolic blood pressure 124 mm[Hg] Rickie Braunnamiller SUPERINTENDENT STEVEDORING Work Phone: [facility] 08-05-2024 15:19-0500 Body height 161.3 cm Stephan Boo DO Work Phone: [facility] 08-05-2024 15:19-0500 Body mass index (BMI) [Ratio] 21.8 kg/m2 Stephan Boo DO Work Phone: [facility] 08-05-2024 15:19-0500 Body weight 56.7 kg Stephan Boo DO Work Phone: [facility] 08-05-2024 15:19-0500 Diastolic blood pressure 84 mm[Hg] Stephan Boo DO Work Phone: [facility] 08-05-2024 15:19-0500 Systolic blood pressure 130 mm[Hg] Stephan Boo DO Work Phone: [facility] 07-01-2024 15:35-0500 Body height 165.1 cm Sherlyn ABRAMS Work Phone: [facility] 07-01-2024 15:35-0500 Body mass index (BMI) [Ratio] 20.93 kg/m2 Sherlyn ABRAMS Work Phone: [facility] 07-01-2024 15:35-0500 Body temperature 97.7 [degF] Sherlyn Shine PA Work Phone: [facility] 07-01-2024 15:35-0500 Body weight 57.06 kg Sherlyn Shine PA Work Phone: [facility] 07-01-2024 15:35-0500 Diastolic blood pressure 80 mm[Hg] Sherlyn Shine PA Work Phone: [facility] 07-01-2024 15:35-0500 Heart rate 86 /min Sherlyn Shine PA Work Phone: [facility] 07-01-2024 15:35-0500 SaO2% (BldA) [Mass fraction] 98 % Sherlyn Shine PA Work Phone: [facility] 07-01-2024 15:35-0500 Systolic blood pressure 120 mm[Hg] Sherlyn Shine PA Work Phone: [facility] 06-27-2024 11:13-0500 Body mass index (BMI) [Ratio] 19.97 kg/m2 Raphael Goldsmith MD Work Phone: [facility] 06-27-2024 11:13-0500 Body temperature 96.6 [degF] Raphael Goldsmith MD Work Phone: [facility] 06-27-2024 11:13-0500 Body weight 54.43 kg Raphael Goldsmith MD Work Phone: [facility] 06-27-2024 11:13-0500 Diastolic blood pressure 60 mm[Hg] Raphael Goldsmith MD Work Phone: [facility] 06-27-2024 11:13-0500 Heart rate 83 /min Raphael Goldsmith MD Work Phone: [facility] 06-27-2024 11:13-0500 Systolic blood pressure 149 mm[Hg] Raphael Goldsmith MD Work Phone: [facility] 11-22-2023 20:52-0400 Body temperature 97.7 [degF] Jayson Brodie [facility] 11-22-2023 20:52-0400 Diastolic blood pressure 80 mm[Hg] Jayson Brodie [facility] 11-22-2023 20:52-0400 Heart rate 60 /min Jayson Brodie [facility] 11-22-2023 20:52-0400 Respiratory rate 17 /min Jayson Brodie [facility] 11-22-2023 20:52-0400 SaO2% (BldA) [Mass fraction] 100 % Jayson Brodie [facility] 11-22-2023 20:52-0400 Systolic blood pressure 147 mm[Hg] Jayson Brodie [facility] 11-22-2023 18:32-0400 Heart rate 87 /min Jayson Brodie [facility] 11-22-2023 18:32-0400 Respiratory rate 18 /min Jayson Brodie [facility] 11-22-2023 18:32-0400 SaO2% (BldA) [Mass fraction] 98 % Jayson Brodie [facility] 11-22-2023 17:50-0400 Diastolic blood pressure 80 mm[Hg] Jayson Brodie [facility] 11-22-2023 17:50-0400 Heart rate 68 /min Jayson Brodie [facility] 11-22-2023 17:50-0400 Respiratory rate 18 /min Jayson Brodie [facility] 11-22-2023 17:50-0400 SaO2% (BldA) [Mass fraction] 98 % Jayson Brodie [facility] 11-22-2023 17:50-0400 Systolic blood pressure 134 mm[Hg] Jayson Brodie [facility] 11-22-2023 16:24-0400 Body temperature 96.8 [degF] Jayson Brodie [facility] 11-22-2023 16:24-0400 Diastolic blood pressure 68 mm[Hg] Jayson Brodie [facility] 11-22-2023 16:24-0400 Systolic blood pressure 131 mm[Hg] Jayson Brodie [facility] 10-05-2023 21:54-0500 Diastolic blood pressure 81 mm[Hg] Kaylinn Dokken [facility] 10-05-2023 21:54-0500 Heart rate 75 /min Kaylinn Dokken [facility] 10-05-2023 21:54-0500 Respiratory rate 19 /min Kaylinn Dokken [facility] 10-05-2023 21:54-0500 SaO2% (BldA) [Mass fraction] 100 % Kaylinn Dokken [facility] 10-05-2023 21:54-0500 Systolic blood pressure 144 mm[Hg] Kaylinn Dokken [facility] 10-05-2023 18:04-0500 Body temperature 97.7 [degF] Kaylinn Dokken [facility] 10-05-2023 18:04-0500 Diastolic blood pressure 78 mm[Hg] Kaylinn Dokken [facility] 10-05-2023 18:04-0500 Heart rate 95 /min Kaylinn Dokken [facility] 10-05-2023 18:04-0500 Respiratory rate 22 /min Koby Masterson [facility] 10-05-2023 18:04-0500 SaO2% (BldA) [Mass fraction] 100 % Koby Masterson [facility] 10-05-2023 18:04-0500 Systolic blood pressure 131 mm[Hg] Koby Masterson [facility] 09-26-2023 09:13-0500 Body height 165.1 cm Ana Kinderhook RADIOACTIVITY TECHNICIAN.CORPORATE COMMUNICATIONS ASSOCIATE Work Phone: [facility] 09-26-2023 09:13-0500 Body weight 50.8 kg Ana Kinderhook RADIOACTIVITY TECHNICIAN.CORPORATE COMMUNICATIONS ASSOCIATE Work Phone: [facility] 09-26-2023 09:13-0500 Diastolic blood pressure 57 mm[Hg] Ana Kinderhook RADIOACTIVITY TECHNICIAN.CORPORATE COMMUNICATIONS ASSOCIATE Work Phone: [facility] 09-26-2023 09:13-0500 Heart rate 72 /min Ana Kinderhook RADIOACTIVITY TECHNICIAN.CORPORATE COMMUNICATIONS ASSOCIATE Work Phone: [facility] 09-26-2023 09:13-0500 Respiratory rate 20 /min Ana Kinderhook RADIOACTIVITY TECHNICIAN.CORPORATE COMMUNICATIONS ASSOCIATE Work Phone: [facility] 09-26-2023 09:13-0500 SaO2% (BldA) [Mass fraction] 98 % Ana Kinderhook RADIOACTIVITY TECHNICIAN.CORPORATE COMMUNICATIONS ASSOCIATE Work Phone: [facility] 09-26-2023 09:13-0500 Systolic blood pressure 118 mm[Hg] Ana Kinderhook RADIOACTIVITY TECHNICIAN.CORPORATE COMMUNICATIONS ASSOCIATE Work Phone: [facility] 09-18-2023 17:51-0500 Body height 165.1 cm Peggy Nazario MD Work Phone: [facility] 09-18-2023 17:51-0500 Body mass index (BMI) [Ratio] 19.34 kg/m2 Peggy Nazario MD Work Phone: [facility] 09-18-2023 17:51-0500 Body temperature 98.01 [degF] Peggy Nazario MD Work Phone: [facility] 09-18-2023 17:51-0500 Body weight 52.71 kg Peggy Nazario MD Work Phone: [facility] 09-18-2023 17:51-0500 Diastolic blood pressure 66 mm[Hg] Peggy Nazario MD Work Phone: [facility] 09-18-2023 17:51-0500 Heart rate 75 /min Peggy Nazario MD Work Phone: [facility] 09-18-2023 17:51-0500 SaO2% (BldA) [Mass fraction] 99 % Peggy Nazario MD Work Phone: [facility] 09-18-2023 17:51-0500 Systolic blood pressure 136 mm[Hg] Peggy Nazario MD Work Phone: [facility] 09-17-2023 06:00-0500 Diastolic blood pressure 60 mm[Hg] Parveen Armen [facility] 09-17-2023 06:00-0500 Heart rate 61 /min Parveen Armen [facility] 09-17-2023 06:00-0500 Mean blood pressure 79 mm[Hg] Parveen Armen [facility] 09-17-2023 06:00-0500 Respiratory rate 11 /min Parveen Armen [facility] 09-17-2023 06:00-0500 SaO2% (BldA) [Mass fraction] 100 % Parveen Armen [facility] 09-17-2023 06:00-0500 Systolic blood pressure 118 mm[Hg] Parveen Armen [facility] 09-17-2023 05:06-0500 Body temperature 96.98 [degF] Parveen Armen [facility] 09-17-2023 05:06-0500 Diastolic blood pressure 58 mm[Hg] Parveen Armen [facility] 09-17-2023 05:06-0500 gluc 79 mg/dL Parveen Armen [facility] 09-17-2023 05:06-0500 gluc Parveen Armen [facility] 09-17-2023 05:06-0500 Heart rate 85 /min Parveen Armen [facility] 09-17-2023 05:06-0500 Respiratory rate 20 /min Parveen Armen [facility] 09-17-2023 05:06-0500 SaO2% (BldA) [Mass fraction] 98 % Parveen Armen [facility] 09-17-2023 05:06-0500 Systolic blood pressure 140 mm[Hg] Parveen Armen [facility] 09-12-2023 06:38-0500 Diastolic blood pressure 93 mm[Hg] Parveen Armen [facility] 09-12-2023 06:38-0500 Heart rate 78 /min Parveen Armen [facility] 09-12-2023 06:38-0500 Mean blood pressure 109 mm[Hg] Parveen Armen [facility] 09-12-2023 06:38-0500 Respiratory rate 13 /min Parveen Armen [facility] 09-12-2023 06:38-0500 SaO2% (BldA) [Mass fraction] 98 % Parveen Armen [facility] 09-12-2023 06:38-0500 Systolic blood pressure 142 mm[Hg] Parveen Armen [facility] 09-12-2023 05:58-0500 Diastolic blood pressure 96 mm[Hg] Parveen Armen [facility] 09-12-2023 05:58-0500 Heart rate 55 /min Parveen Armen [facility] 09-12-2023 05:58-0500 Mean blood pressure 112 mm[Hg] Parveen Armen [facility] 09-12-2023 05:58-0500 Respiratory rate 16 /min Parveen Armen [facility] 09-12-2023 05:58-0500 SaO2% (BldA) [Mass fraction] 100 % Parveen Armen [facility] 09-12-2023 05:58-0500 Systolic blood pressure 144 mm[Hg] Parveen Armen [facility] 09-12-2023 04:56-0500 Diastolic blood pressure 77 mm[Hg] Parveen Armen [facility] 09-12-2023 04:56-0500 Heart rate 60 /min Parveen Armen [facility] 09-12-2023 04:56-0500 Mean blood pressure 94 mm[Hg] Parveen Armen [facility] 09-12-2023 04:56-0500 Respiratory rate 18 /min Parveen Armen [facility] 09-12-2023 04:56-0500 SaO2% (BldA) [Mass fraction] 100 % Parveen Ayers [facility] 09-12-2023 04:56-0500 Systolic blood pressure 129 mm[Hg] Parveen Armen [facility] 09-12-2023 04:27-0500 gluc 96 mg/dL Parveen Armen [facility] 09-12-2023 04:27-0500 gluc Parveen Ayers [facility] 09-12-2023 04:13-0500 Body temperature 96.98 [degF] Parveen Ayers [facility] 09-12-2023 04:13-0500 Heart rate 83 /min Parveen Ayers [facility] 09-12-2023 04:13-0500 Respiratory rate 16 /min Parveen Ayers [facility] 08-11-2023 08:55-0500 Body height 165.1 cm Peggy Nazario MD Work Phone: [facility] 08-11-2023 08:55-0500 Body mass index (BMI) [Ratio] 19.44 kg/m2 Peggy Nazario MD Work Phone: [facility] 08-11-2023 08:55-0500 Body temperature 97.9 [degF] Peggy Nazario MD Work Phone: [facility] 08-11-2023 08:55-0500 Body weight 52.98 kg Peggy Nazario MD Work Phone: [facility] 08-11-2023 08:55-0500 Diastolic blood pressure 68 mm[Hg] Peggy Nazario MD Work Phone: [facility] 08-11-2023 08:55-0500 Heart rate 69 /min Peggy Nazario MD Work Phone: [facility] 08-11-2023 08:55-0500 SaO2% (BldA) [Mass fraction] 99 % Peggy Nazario MD Work Phone: [facility] 08-11-2023 08:55-0500 Systolic blood pressure 122 mm[Hg] Peggy Nazario MD Work Phone: [facility] 07-21-2023 06:46-0500 Blood Pressure Location Johan HENRIQUEZ [facility] 07-21-2023 06:46-0500 Diastolic blood pressure 57 mm[Hg] Johan HENRIQUEZ [facility] 07-21-2023 06:46-0500 Heart rate 81 /min Johan HENRIQUEZ [facility] 07-21-2023 06:46-0500 Respiratory rate 18 /min Johan HENRIQUEZ [facility] 07-21-2023 06:46-0500 SaO2% (BldA) [Mass fraction] 100 % Johan HENRIQUEZ [facility] 07-21-2023 06:46-0500 Systolic blood pressure 118 mm[Hg] Johan HENRIQUEZ [facility] 07-20-2023 09:56-0500 Blood Pressure Location Johan HENRIQUEZ [facility] 07-20-2023 09:56-0500 Diastolic blood pressure 52 mm[Hg] Johan HENRIQUEZ [facility] 07-20-2023 09:56-0500 Heart rate 62 /min Johan HENRIQUEZ [facility] 07-20-2023 09:56-0500 SaO2% (BldA) [Mass fraction] 98 % Johan HENRIQUEZ [facility] 07-20-2023 09:56-0500 Systolic blood pressure 105 mm[Hg] Johan HENRIQUEZ [facility] 07-07-2023 12:38-0500 Diastolic blood pressure 59 mm[Hg] Jeff Tay [facility] 07-07-2023 12:38-0500 Heart rate 94 /min Jeff Tay [facility] 07-07-2023 12:38-0500 Respiratory rate 13 /min Jeff Tay [facility] 07-07-2023 12:38-0500 SaO2% (BldA) [Mass fraction] 94 % Jeff Tay [facility] 07-07-2023 12:38-0500 Systolic blood pressure 123 mm[Hg] Jeff Tay [facility] 07-07-2023 12:00-0500 Diastolic blood pressure 83 mm[Hg] Jeff Tay [facility] 07-07-2023 12:00-0500 Heart rate 102 /min Jeff Tay [facility] 07-07-2023 12:00-0500 Mean blood pressure 96 mm[Hg] Jeff Tay [facility] 07-07-2023 12:00-0500 Respiratory rate 17 /min Jeff Tay [facility] 07-07-2023 12:00-0500 SaO2% (BldA) [Mass fraction] 96 % Jeff Tay [facility] 07-07-2023 11:34-0500 Diastolic blood pressure 73 mm[Hg] Jeff Tay [facility] 07-07-2023 11:34-0500 Heart rate 93 /min Jeff Tay [facility] 07-07-2023 11:34-0500 Respiratory rate 18 /min Jeff Tay [facility] 07-07-2023 11:34-0500 SaO2% (BldA) [Mass fraction] 94 % Jeff Wadee [facility] 07-07-2023 11:34-0500 Systolic blood pressure 109 mm[Hg] Jeff Wadee [facility] 07-07-2023 09:52-0500 Heart rate 103 /min Jeff Wadee [facility] 07-07-2023 08:57-0500 Body temperature 97.88 [degF] Jeff Wadee [facility] 07-07-2023 08:57-0500 Heart rate 134 /min Jeff Wadee [facility] 07-07-2023 08:57-0500 Respiratory rate 24 /min Jeff Cross [facility] 07-06-2023 14:03-0500 Hourly Rounding Ronobir ABDI [facility] 07-06-2023 14:03-0500 Promise to Return Ronobir ABDI [facility] 07-06-2023 13:34-0500 Hourly Rounding Ronobir ABDI [facility] 07-06-2023 13:00-0500 Hourly Rounding Ronobir ABDI [facility] 07-06-2023 13:00-0500 Promise to Return Ronobir ABDI [facility] 07-06-2023 12:07-0500 Promise to Return Ronobir ABDI [facility] 07-06-2023 12:00-0500 Blood Pressure Location Ronobir ABDI [facility] 07-06-2023 12:00-0500 Body temperature 98.06 [degF] Ronobir ABDI [facility] 07-06-2023 12:00-0500 Diastolic blood pressure 69 mm[Hg] Ronobir ABDI [facility] 07-06-2023 12:00-0500 Heart rate 78 /min Ronobir ABDI [facility] 07-06-2023 12:00-0500 Mean blood pressure 81 mm[Hg] Ronobir ABDI [facility] 07-06-2023 12:00-0500 SaO2% (BldA) [Mass fraction] 94 % Ronobir ABDI [facility] 07-06-2023 12:00-0500 Systolic blood pressure 105 mm[Hg] Ronobir ABDI [facility] 07-06-2023 10:00-0500 Diastolic blood pressure 66 mm[Hg] Ronobir ABDI [facility] 07-06-2023 10:00-0500 Heart rate 77 /min Ronobir ABDI [facility] 07-06-2023 10:00-0500 Mean blood pressure 78 mm[Hg] Ronobir ABDI [facility] 07-06-2023 10:00-0500 Systolic blood pressure 103 mm[Hg] Ronobir ABDI [facility] 07-06-2023 07:00-0500 Body temperature 97.7 [degF] Ronobir ABDI [facility] 07-06-2023 07:00-0500 Diastolic blood pressure 60 mm[Hg] Ronobir ABDI [facility] 07-06-2023 07:00-0500 SaO2% (BldA) [Mass fraction] 93 % Ronobir ABDI [facility] 07-06-2023 07:00-0500 Systolic blood pressure 97 mm[Hg] Ronobir ABDI [facility] 07-06-2023 00:18-0500 Body temperature 97.7 [degF] Ronobir ABDI [facility] 07-06-2023 00:18-0500 SaO2% (BldA) [Mass fraction] 93 % Ronobir ABDI [facility] 07-05-2023 22:10-0500 Mean blood pressure 79 mm[Hg] Ronobir ABDI [facility] 07-05-2023 16:03-0500 Mean blood pressure 88 mm[Hg] Ronobir ABDI [facility] 07-05-2023 11:18-0500 Mean blood pressure 77 mm[Hg] Ronobir ABDI [facility] 07-05-2023 11:18-0500 Body temperature 98.06 [degF] Ronobir ABDI [facility] 07-05-2023 09:59-0500 Mean blood pressure 86 mm[Hg] Ronobir ABDI [facility] 07-05-2023 09:58-0500 Body temperature 98.42 [degF] Ronobir ABDI [facility] 07-04-2023 19:23-0500 Body temperature 97.7 [degF] Ronobir ABDI [facility] 07-03-2023 18:22-0500 BP/Pulse Patient Position Ronobir ABDI [facility] 07-03-2023 14:00-0500 Respiratory rate 17 /min Ronobir ABDI [facility] 07-03-2023 06:46-0500 Respiratory rate 18 /min Ronobir ABDI [facility] 07-03-2023 06:45-0500 BP/Pulse Patient Position Ronobir ABDI [facility] 07-03-2023 04:30-0500 Respiratory rate 16 /min Ronobir ABDI [facility] 07-03-2023 02:45-0500 Heart rate 90 /min Ronobir ABDI [facility] 07-03-2023 02:30-0500 Respiratory rate 12 /min Ronobir ABDI [facility] 07-03-2023 02:15-0500 Respiratory rate 13 /min Ronobir ABDI [facility] 07-02-2023 21:27-0500 Heart rate 141 /min Ronobir ABDI [facility] 07-02-2023 21:27-0500 Respiratory rate 18 /min Ronobir ABDI [facility] 07-01-2023 00:30-0500 Diastolic blood pressure 76 mm[Hg] Kaylinn Dokken [facility] 07-01-2023 00:30-0500 Heart rate 102 /min Kaylinn Dokken [facility] 07-01-2023 00:30-0500 Mean blood pressure 82 mm[Hg] Kaylinn Dokken [facility] 07-01-2023 00:30-0500 Respiratory rate 18 /min Kaylinn Dokken [facility] 07-01-2023 00:30-0500 SaO2% (BldA) [Mass fraction] 95 % Kaylinn Dokken [facility] 07-01-2023 00:30-0500 Systolic blood pressure 93 mm[Hg] Kaylinn Dokken [facility] 06-30-2023 23:24-0500 Diastolic blood pressure 73 mm[Hg] Kaylinn Dokken [facility] 06-30-2023 23:24-0500 Heart rate 102 /min Kaylinn Dokken [facility] 06-30-2023 23:24-0500 Mean blood pressure 92 mm[Hg] Kaylinn Dokken [facility] 06-30-2023 23:24-0500 Respiratory rate 16 /min Kaylinn Dokken [facility] 06-30-2023 23:24-0500 SaO2% (BldA) [Mass fraction] 94 % Kaylinn Dokken [facility] 06-30-2023 23:24-0500 Systolic blood pressure 130 mm[Hg] Kaylinn Dokken [facility] 06-30-2023 22:30-0500 Body temperature 97.88 [degF] Kaylinn Dokken [facility] 06-30-2023 22:30-0500 Diastolic blood pressure 112 mm[Hg] Kaylinn Dokken [facility] 06-30-2023 22:30-0500 Heart rate 114 /min Caitlyninn Dokken [facility] 06-30-2023 22:30-0500 Mean blood pressure 120 mm[Hg] Kaylinn Dokken [facility] 06-30-2023 22:30-0500 Respiratory rate 18 /min Lisylinn Dokken [facility] 06-30-2023 22:30-0500 SaO2% (BldA) [Mass fraction] 100 % Caitlyninn Dokken [facility] 06-30-2023 22:30-0500 Systolic blood pressure 137 mm[Hg] Caitlyninn Dokken [facility] 06-30-2023 19:33-0500 Body temperature 97.7 [degF] Caitlyninn Dokken [facility] 06-30-2023 19:33-0500 Heart rate 123 /min Aran Dokken [facility] 04-26-2023 15:19-0400 Blood Pressure Location Micheline BROOKS [facility] 04-26-2023 15:19-0400 Diastolic blood pressure 88 mm[Hg] Micheline BROOKS [facility] 04-26-2023 15:19-0400 Heart rate 80 /min Micheline BROOKS [facility] 04-26-2023 15:19-0400 Systolic blood pressure 139 mm[Hg] Micheline BROOKS [facility] 04-04-2023 16:30-0400 Diastolic blood pressure 51 mm[Hg] Jeff Tay [facility] 04-04-2023 16:30-0400 Heart rate 39 /min Jeff Wadee [facility] 04-04-2023 16:30-0400 Respiratory rate 14 /min Jeff Wadee [facility] 04-04-2023 16:30-0400 SaO2% (BldA) [Mass fraction] 99 % Jeff Wadee [facility] 04-04-2023 16:30-0400 Systolic blood pressure 145 mm[Hg] Jeff Wadee [facility] 04-04-2023 15:52-0400 Body temperature 98.06 [degF] Jeff Wadee [facility] 04-04-2023 15:52-0400 Diastolic blood pressure 81 mm[Hg] Jeff Wadee [facility] 04-04-2023 15:52-0400 Heart rate 66 /min Jeff Wadee [facility] 04-04-2023 15:52-0400 Respiratory rate 14 /min Jeff Wadee [facility] 04-04-2023 15:52-0400 SaO2% (BldA) [Mass fraction] 99 % Jeff Wadee [facility] 04-04-2023 15:52-0400 Systolic blood pressure 161 mm[Hg] Jeff Tay [facility] 04-04-2023 14:52-0400 Diastolic blood pressure 79 mm[Hg] Jeff Tay [facility] 04-04-2023 14:52-0400 Heart rate 64 /min Jeff Wadee [facility] 04-04-2023 14:52-0400 Respiratory rate 14 /min Jeff Cross [facility] 04-04-2023 14:52-0400 SaO2% (BldA) [Mass fraction] 100 % Jeff Cross [facility] 04-04-2023 14:52-0400 Systolic blood pressure 95 mm[Hg] Jeff Cross [facility] 04-04-2023 14:07-0400 Body temperature 98.06 [degF] Jeff Cross [facility] 04-04-2023 13:52-0400 Body temperature 98.24 [degF] Jeff Cross [facility] 04-04-2023 13:52-0400 Heart rate 107 /min Jeff Cross [facility] 01-28-2023 21:23-0400 Body temperature 97.7 [degF] [facility] 01-28-2023 21:23-0400 Diastolic blood pressure 78 mm[Hg] [facility] 01-28-2023 21:23-0400 Heart rate 82 /min [facility] 01-28-2023 21:23-0400 Respiratory rate 18 /min [facility] 01-28-2023 21:23-0400 SaO2% (BldA) [Mass fraction] 97 % [facility] 01-28-2023 21:23-0400 Systolic blood pressure 125 mm[Hg] [facility] 09-01-2022 14:01-0500 Diastolic blood pressure 75 mm[Hg] Yennifer Iraheta [facility] 09-01-2022 14:01-0500 Mean blood pressure 91 mm[Hg] Yennifer Iraheta [facility] 09-01-2022 14:01-0500 Systolic blood pressure 122 mm[Hg] Yennifer Esequiel [facility] 09-01-2022 13:48-0500 Blood Pressure Location Mohstacia Esequiel [facility] 09-01-2022 13:48-0500 Diastolic blood pressure 79 mm[Hg] Mohstacia Esequiel [facility] 09-01-2022 13:48-0500 Heart rate 60 /min Yennifer Esequiel [facility] 09-01-2022 13:48-0500 SaO2% (BldA) [Mass fraction] 98 % Yennifer Esequiel [facility] 09-01-2022 13:48-0500 Systolic blood pressure 149 mm[Hg] Yennifer Esequiel [facility] 06-13-2022 08:54-0400 Blood Pressure Location Yennifer Esequiel [facility] 06-13-2022 08:54-0400 Diastolic blood pressure 68 mm[Hg] Yennifer Esequiel [facility] 06-13-2022 08:54-0400 Heart rate 75 /min Yennifer Esequiel [facility] 06-13-2022 08:54-0400 SaO2% (BldA) [Mass fraction] 96 % Yennifer Esequiel [facility] 06-13-2022 08:54-0400 Systolic blood pressure 132 mm[Hg] Yennifer Esequiel [facility] 03-03-2022 09:59-0400 Blood Pressure Location CARMINA GARRISON [facility] 03-03-2022 09:59-0400 Diastolic blood pressure 89 mm[Hg] CARMINA GARRISON [facility] 03-03-2022 09:59-0400 Heart rate 77 /min CARMINA GARRISON [facility] Sh[facility] 03-03-2022 09:59-0400 Systolic blood pressure 140 mm[Hg] CARMINA GARRISON [facility] [place] 02-15-2022 13:17-0400 Body temperature 98.6 [degF] Jeff Wadee [facility] 02-15-2022 13:17-0400 Diastolic blood pressure 62 mm[Hg] Jeff Wadee [facility] 02-15-2022 13:17-0400 Heart rate 86 /min Jeff Tay [facility] 02-15-2022 13:17-0400 Respiratory rate 18 /min Jeff Wadee [facility] 02-15-2022 13:17-0400 SaO2% (BldA) [Mass fraction] 99 % Jeff Tay [facility] 02-15-2022 13:17-0400 Systolic blood pressure 151 mm[Hg] Jeff Tay [facility] 12-24-2021 17:39-0400 Body temperature 97.7 [degF] Jeff Tay [facility] 12-24-2021 17:39-0400 Diastolic blood pressure 70 mm[Hg] Jeff Tay [facility] 12-24-2021 17:39-0400 Heart rate 81 /min Jeff Tay [facility] 12-24-2021 17:39-0400 Respiratory rate 15 /min Jeff Cross [facility] 12-24-2021 17:39-0400 SaO2% (BldA) [Mass fraction] 100 % Jeff Cross [facility] 12-24-2021 17:39-0400 Systolic blood pressure 163 mm[Hg] Jeff Cross [facility] Encounters Encounter Date Encounter Type Care Provider Facility Start: 05-28-2025 Evaluation and manag ement of inpatient [facility] Start: 05-27-2025 Evaluation and manag ement of inpatient [facility] Start: 05-27-2025 ambulatory [facility] Start: 05-27-2025 End: 05-28-2025 Evaluation and management of inpatient [facility] Start: 05-19-2025 End: 05-19-2025 ambulatory [facility] Start: 05-14-2025 End: 05-14-2025 Shaggy Brian MD Work Phone: [facility] Start: 05-14-2025 End: 05-14-2025 Shaggy Brian MD Work Phone: [facility] Start: 05-14-2025 End: 05-14-2025 Office outpatient visit 25 minutes Hannah Brian MD Work Phone: [facility] Comment on above: Bee sting, accidenta l or unintentional, initial encounter (Primary Dx); Gastroesophageal reflux disease without esophagitis; Ear fullness, right; Fluid level behind tympanic membrane of right ear Start: 05-14-2025 End: 05-14-2025 ambulatory HANNAH BRIAN Not Available Start: 05-08-2025 End: 05-08-2025 Office outpatient visit 40 minutes Hannah Brian MD Work Phone: [facility] Comment on above: Hematuria, unspecifi ed type (Primary Dx); Painful urination; C. 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 Start: 05-08-2025 End: 05-08-2025 ambulatory HANNAH BRIAN Not Available Start: 05-08-2025 End: 05-08-2025 Bamboo lalit Brian MD Work Phone: [facility] Start: 05-08-2025 End: 05-08-2025 Shaggy Brian MD Work Phone: [facility] Start: 04-28-2025 End: 04-28-2025 Emergency department patient visit Layton Crawford Facility:[facility] Start: 04-24-2025 End: 04-24-2025 ambulatory Jayson Calloway Facility:[facility] Start: 04-21-2025 End: 04-21-2025 Office outpatient visit 25 minutes Hannah Brian MD Work Phone: [facility] Comment on above: Frequent urination ( Primary Dx); Painful urination; Mitral valve regurgitation due to cardiomyopathy (HCC); Exertional dyspnea; Hypertensive heart disease with heart failure (HCC); Atrial fibrillation, persistent (HCC); 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; Anxiety Start: 04-21-2025 End: 04-21-2025 ambulatory HANNAH BRIAN Not Available Start: 04-19-2025 End: 04-21-2025 Telephone encounter Hannah Brian MD Work Phone: [facility] Comment on above: 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) Start: 04-19-2025 End: 04-19-2025 Emergency department patient visit Jayson Calloway Facility:[facility] Start: 04-17-2025 End: 04-17-2025 Refill Hannah Brian MD Work Phone: [facility] Comment on above: Anxiety Start: 04-16-2025 End: 04-16-2025 ambulatory [facility] Start: 04-07-2025 End: 04-07-2025 Shaggy Brian MD Work Phone: [facility] Start: 04-07-2025 End: 04-07-2025 hSaggy Brian MD Work Phone: [facility] Start: 04-07-2025 End: 04-07-2025 Office outpatient visit 25 minutes Hannah Brian MD Work Phone: [facility] Comment on above: Frequent urination ( Primary Dx); Painful urination; Left lower quadrant pain; Gastroesophageal reflux disease without esophagitis; Exertional dyspnea; Mitral valve regurgitation due to cardiomyopathy (HCC); Hypertensive heart disease with heart failure (HCC); Unspecified systolic (congestive) heart failure (HCC) Start: 04-07-2025 End: 04-07-2025 ambulatory HANNAH BRIAN Not Available Start: 03-31-2025 End: 03-31-2025 ambulatory [facility] Start: 02-18-2025 End: 02-18-2025 ambulatory [facility] Start: 02-10-2025 End: 02-10-2025 ambulatory [facility] Start: 01-23-2025 End: 01-23-2025 ambulatory [facility] Start: 01-22-2025 End: 01-22-2025 Shaggy Brian MD Work Phone: [facility] Start: 01-22-2025 End: 01-22-2025 Shaggy Brian MD Work Phone: [facility] Start: 01-22-2025 End: 01-22-2025 Office outpatient visit 25 minutes Hannah Brian MD Work Phone: [facility] Comment on above: Atrial fibrillation, persistent (HCC) (CMS/HCC) (Primary Dx); 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; Mitral valve regurgitation due to cardiomyopathy (HCC) (CMS/HCC); Anxiety Start: 01-22-2025 End: 01-22-2025 ambulatory HANNAH BRIAN Not Available Start: 01-15-2025 Evaluation and manag ement of inpatient [facility] Start: 01-14-2025 Evaluation and manag ement of inpatient [facility] Start: 01-14-2025 ambulatory [facility] Start: 01-14-2025 End: 01-15-2025 Evaluation and management of inpatient [facility] Start: 01-13-2025 End: 01-13-2025 [facility] Comment on above: Anxiety Start: 01-07-2025 End: 01-07-2025 Office outpatient visit 25 minutes Hannah Brian MD Work Phone: [facility] Comment on above: Atrial fibrillation, persistent (HCC) (CMS/HCC) (Primary Dx); detention 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; Primary hypertension (CMS/HCC); Anxiety; Panic attack (CMS/HCC) Start: 01-07-2025 End: 01-07-2025 ambulatory HANNAH BRIAN Not Available Start: 01-07-2025 End: 01-07-2025 Shaggy Brian MD Work Phone: [facility] Start: 01-07-2025 End: 01-07-2025 Bamboo lalit Brian MD Work Phone: [facility] Start: 12-23-2024 ambulatory [facility] Start: 12-17-2024 End: 12-17-2024 Office outpatient visit 15 minutes Hannah Brian MD Work Phone: [facility] Comment on above: Hematuria, unspecifi ed type (Primary Dx); Right flank pain; Dysuria; Urinary frequency Start: 12-17-2024 End: 12-17-2024 ambulatory HANNAH BRIAN Not Available Start: 12-17-2024 End: 12-17-2024 Shaggy Brian MD Work Phone: [facility] Start: 12-17-2024 End: 12-17-2024 Bamlalitoo lalit Brian MD Work Phone: [facility] Start: 12-16-2024 End: 12-17-2024 Refill Hannah Brian MD Work Phone: [facility] Comment on above: Anxiety Start: 12-13-2024 ambulatory [facility] Start: 11-29-2024 End: 11-29-2024 ambulatory [facility] Start: 11-25-2024 End: 11-25-2024 Shanello lalit Brian MD Work Phone: [facility] Start: 11-25-2024 End: 11-25-2024 Shaggy Brian MD Work Phone: [facility] Start: 11-25-2024 End: 11-25-2024 Office outpatient visit 25 minutes Hannah Brian MD Work Phone: [facility] Comment on above: Acute cough (Primary Dx); Bruising; 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; Atrial fibrillation, persistent (HCC) (CMS/HCC); Primary hypertension (CMS/HCC); Cardiomyopathy, unspecified Start: 11-25-2024 End: 11-25-2024 ambulatory HANNAH BRIAN Not Available Start: 11-18-2024 End: 11-21-2024 External Result Encounter Hannah Brian MD Work Phone: [facility] External Department Unsolicited Start: 11-18-2024 End: 11-21-2024 External Result Encounter Hannah Brian MD Work Phone: [facility] External Department Unsolicited Start: 11-18-2024 End: 11-18-2024 Office outpatient visit 25 minutes Hannah Brian MD Work Phone: [facility] Comment on above: Acute cough (Primary Dx); Hematuria, unspecified type; detention 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; Atrial fibrillation, persistent (HCC) (CMS/HCC); Primary hypertension (CMS/HCC) Start: 11-18-2024 End: 11-18-2024 ambulatory HANNAH BRIAN Not Available Start: 11-15-2024 End: 11-18-2024 Refill Hannah Brian MD Work Phone: [facility] Comment on above: Anxiety Start: 10-22-2024 End: 10-22-2024 ambulatory [facility] Start: 10-08-2024 End: 10-08-2024 Bamboo flowsheet [...] 08-20-2024 Refill Hannah Brian MD Work Phone: [facility] Comment on above: Anxiety Start: 08-12-2024 End: 08-12-2024 Office outpatient visit 25 minutes Rickie Aviles [employer]PERINT[employer]ENT [employer]ING Work Phone: [facility] Comment on above: Dysuria (Primary Dx) ; Urinary frequency; Atrial fibrillation, persistent (HCC) (CMS/HCC); 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; BMI 22.0-22.9, adult Start: 08-12-2024 End: 08-12-2024 ambulatory RICKIE A DONNAMILLER Not Available Start: 08-12-2024 End: 08-12-2024 Bamboo flowsheet Rickie Pierrer SUPERINTENDENT [employer]ING Work Phone: [facility] Start: 08-12-2024 End: 08-12-2024 Bamboo flowsheet Rickie Pierrer [employer]PERINTENDENT [employer]ING Work Phone: [facility] Start: 08-05-2024 End: 08-05-2024 Office outpatient visit 25 minutes Stephan Boo DO Work Phone: [facility] Comment on above: Postmenopausal atrop hic vaginitis; Breast cancer screening by mammogram Start: 08-05-2024 End: 08-05-2024 ambulatory STEPHAN BOO Not Available Start: 07-30-2024 End: 07-30-2024 ambulatory [facility] Start: 07-22-2024 End: 07-23-2024 Shira Brian MD Work Phone: [facility] Comment on above: Anxiety Start: 07-02-2024 End: 07-02-2024 ambulatory [facility] Start: 07-01-2024 End: 07-01-2024 Office outpatient visit 25 minutes Sherlyn Shine PA Work Phone: [facility] Comment on above: Dysuria Start: 07-01-2024 End: 07-01-2024 ambulatory SHERLYN SHINE Not Available Start: 07-01-2024 End: 07-01-2024 Bamboo flowsheet Sherlyn ABRAMS Work Phone: [facility] Start: 07-01-2024 End: 07-01-2024 Bamboo flowsheet Sherlyn ABRAMS Work Phone: [facility] Start: 06-27-2024 End: 06-27-2024 ambulatory PEGGY NAZARIO Facility:[facility] Start: 06-27-2024 End: 06-27-2024 Patient encounter procedure Raphael Goldsmith MD Work Phone: Urology Comment on above: Feeling of incomplet e bladder emptying (Primary Dx); Stricture of female urethra, unspecified stricture type Start: 06-10-2024 ambulatory [facility] Start: 06-10-2024 End: 06-10-2024 ambulatory [facility] Start: 06-03-2024 End: 06-03-2024 ambulatory [facility] Facility:[facility] Start: 06-03-2024 End: 06-03-2024 Patient encounter procedure [facility] Start: 05-07-2024 End: 05-07-2024 Patient encounter [...] 11-22-2023 Emergency department patient visit Jayson Calloway [facility] Start: 11-13-2023 End: 11-13-2023 ambulatory Hannah Brian Facility:[facility] Start: 11-13-2023 End: 11-13-2023 Patient encounter procedure Hannah Brian [facility] Start: 10-16-2023 Telephone encounter Alea lynn MD Work Phone: Cardiology Comment on above: Patient Update Start: 10-16-2023 End: 10-16-2023 Patient encounter procedure Raphael Goldsmith MD Work Phone: Urology Comment on above: Feeling of incomplet e bladder emptying (Primary Dx); Stricture of female urethra, unspecified stricture type; Severe protein-calorie malnutrition (HCC) Start: 10-16-2023 End: 10-16-2023 ambulatory PEGGY NAZARIO Facility:[facility] Start: 10-05-2023 End: 10-05-2023 Emergency department patient visit Koby Salter Zelalem [facility] Start: 10-02-2023 Telephone encounter Alea [...] Non-ischemic cardiomyopathy (HCC); Persistent atrial fibrillation (HCC); detention 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; History of cardioversion; [...] 09-17-2023 Emergency department patient visit Parveen Ayers [facility] Start: 09-13-2023 Refill Peggy Nazario MD Work Phone: [facility] Comment on above: Anxiety Start: 09-12-2023 Refill Peggy Nazario MD Work Phone: [facility] Comment on above: Gastroesophageal ref lux disease without esophagitis Start: 09-12-2023 End: 09-12-2023 Emergency department patient visit Parveen Ayers [facility] Start: 08-28-2023 End: 08-28-2023 ambulatory PEGGY NAZARIO Facility:[facility] Start: 08-24-2023 Evaluation and manag ement of inpatient AMINA PETERSEN Facility:[facility] Start: 08-23-2023 End: 08-24-2023 Patient encounter procedure Prieto Villalba DO Work Phone: [facility] Start: 08-23-2023 End: 08-24-2023 ambulatory Prieto Villalba Work Phone: Cardiology Start: 08-11-2023 End: 08-11-2023 Postop follow up visit related to original px Peggy Nazario MD Work Phone: [facility] Comment on above: Anxiety (Primary Dx) ; Chronic fatigue syndrome Start: 07-24-2023 Telephone encounter Micheline goldberg MD Work Phone: Cardiothoracic Comment on above: Insurance Inquiry Start: 07-21-2023 End: 07-21-2023 Admission to same day surgery center Johan HENRIQUEZ [facility] Start: 07-21-2023 End: 07-21-2023 ambulatory Johan HENRIQUEZ Facility:[facility] Start: 07-20-2023 End: 07-20-2023 ambulatory XXXX NONE Facility:[facility] Start: 07-20-2023 End: 07-20-2023 Patient encounter procedure Johan HENRIQUEZ [facility] Start: 07-19-2023 End: 07-19-2023 ambulatory Micheline BROOKS Facility:[facility] Start: 07-07-2023 End: 07-07-2023 Emergency department patient visit Jeff Cross [facility] Start: 07-04-2023 End: 07-06-2023 Pre-admission assessment Johan HENRIQUEZ [facility] Start: 07-02-2023 End: 07-06-2023 ambulatory Nahid SERRATO Facility:[facility] Start: 07-02-2023 End: 07-06-2023 Observation Noman PATTON [facility] Start: 06-30-2023 End: 07-01-2023 Emergency department patient visit Koby Masterson [facility] Start: 04-26-2023 End: 04-26-2023 Patient encounter procedure Micheline BROOKS [facility] [place] Start: 04-04-2023 End: 04-04-2023 Emergency department patient visit Jeff Cross [facility] Start: 01-28-2023 End: 01-28-2023 Emergency department patient visit Layton Crawford [facility] Start: 12-05-2022 End: 12-05-2022 Patient encounter procedure Peggy Nazario [facility] Start: 10-25-2022 End: 10-25-2022 Patient encounter procedure Micheline BROOKS [facility] Start: 10-03-2022 End: 10-03-2022 Patient encounter procedure Asuncion Reyna [facility] [place] Start: 09-01-2022 End: 09-01-2022 Patient encounter procedure Yennifer Iraheta [facility] Start: 07-12-2022 End: 07-12-2022 Patient encounter procedure Yennifer Iraheta [facility] Start: 06-13-2022 End: 06-13-2022 Patient encounter procedure Yennifer Iraheta [facility] Start: 03-03-2022 End: 03-03-2022 Patient encounter procedure CARMINA GARRISON [facility] [place] Start: 02-15-2022 End: 02-15-2022 Emergency department patient visit Jeff Cross [facility] Start: 12-24-2021 End: 12-24-2021 Emergency department patient visit Jeff Cross [facility] Start: 08-11-2021 End: 11-10-2021 Patient encounter procedure Peggy Nazario [facility] Procedures Date Procedure Procedure Detail [...] Screening for malign ant neoplasm of colon [facility] Start: 01-30-2028 Urine microalbumin profile DTa P,Tdap,Td Vaccine (5 - Td or Tdap) [facility] Start: 02-21-2027 Diabetes Screening Diabetes Screenin g [facility] Start: 09-26-2026 Diabetes Screening [facility] Start: 08-31-2026 Diabetes Screening [facility] Start: 05-14-2025 End: 05-14-2025 Patient encounter procedure 05/14/2025 11:40 AM EDT [facility] [place] [facility] [address] [place] [id number] Hannah Brian MD [address] [place] [address] Arrived [facility] Comment on above: Arrived Start: 05-08-2025 End: 05-08-2025 Patient encounter procedure 05/08/2025 2:20 PM EDT Office Visit [facility] [place] [facility] [address] [place] [address] Hannah Brian MD [address] [place] [address] Arrived [facility] Comment on above: Arrived Start: 04-21-2025 End: 04-21-2025 Patient encounter procedure 04/21/2025 3:00 PM EDT Office Visit [facility] [place] [facility] [address] [place] [address] Hannah Brian MD [address] [place] [address] [facility] Start: 04-09-2025 End: 04-09-2025 Patient encounter procedure 04/09/2025 3:20 PM EDT [facility] [address] [place] [phone] Hannah Brian MD [address] [place] [address] [facility] Start: 04-07-2025 End: 04-07-2025 Patient encounter procedure 04/07/2025 1:40 PM EDT Office Visit [facility] [place] [facility] [address] [place] [phone] Hannah Brian MD [address] [place] [address] [facility] Comment on above: Arrived Start: 01-22-2025 End: 01-22-2025 Patient encounter procedure 01/22/2025 2:00 PM EDT Office Visit [facility] [address] [place] [phone] Hannah Brian MD [address] [place] [address] Arrived [facility] Comment on above: Arrived Start: 01-07-2025 End: 01-07-2025 Patient encounter procedure [facility] Comment on above: Arrived Start: 12-17-2024 End: 12-17-2024 Patient encounter procedure [facility] Comment on above: Arrived Start: 12-17-2024 End: 12-17-2025 Bacteria identified in Urine by Culture Urine culture Microbiology Routine Right flank pain Dysuria Urinary frequency Expected: 12/17/2024 (Approximate), Expires: 12/17/2025 [facility] Work Phone: Comment on above: Expected: 12/17/2024 (Approximate), Expires: 12/17/2025 Start: 11-25-2024 End: 11-25-2024 Patient encounter procedure 11/25/2024 11:00 AM EDT Office Visit [facility] [address] [place] [phone] Hannah Brian MD [address] [place] [address] Arrived [facility] Comment on above: Arrived [...] (1 of 2 - PCV) [facility] Comment on above: Postponed from 03/18 (Patient Refused) Start: 10-08-2024 End: 10-08-2024 Patient encounter procedure [facility] Comment on above: Arrived Start: 09-26-2024 BP Controlled (<130/80) BP Controlle d (<130/80) [facility] Start: 08-28-2024 BP Controlled (<130/80) BP Controlle d (<130/80) [facility] Start: 08-12-2024 End: 08-12-2024 Patient encounter procedure 08/12/2024 4:00 PM EST Office Visit [facility] [address] [place] [place] [address] Rickie Aviles NP [address] [place] [address] Arrived [facility] Comment on above: Arrived Start: 08-05-2024 End: 08-05-2024 Patient encounter procedure 08/05/2024 2:45 PM EST Office Visit [facility] [address] [place] [phone] Stephan Boo, DO [address] [place] [address] [facility] Start: 08-05-2024 End: 10-06-2025 DBT Breast - bilateral screening Bilateral screening mammogram with tomosynthesis Imaging Routine Breast cancer screening by mammogram Expected: 08/05/2024, Expires: 10/06/2025 [facility] Work Phone: Comment on above: Expected: 08/05/2024 , Expires: 10/06/2025 Start: 07-29-2024 End: 07-29-2024 Patient encounter procedure 07/29/2024 3:45 PM EST Office Visit [facility] [address] [place] [phone] Stephan Boo, DO [address] [place] [address] [facility] Start: 07-24-2024 Medicare Annual Well ness (AWV) Medicare Annual Wellness (AWV) [facility] Start: 07-01-2024 End: 07-01-2024 Patient encounter procedure 07/01/2024 3:30 PM EST Office Visit [facility] [address] [place] [address] Sherlyn Shine PA [address] [place] [address] Arrived [facility] Comment on above: Arrived [...] 11:10 AM EDT Office Visit Urology [address] [address] Raphael Goldsmith MD [address] [place] [address] 6 month follow up per cc chart Urology Comment on above: 6 month follow up pe r cc chart Start: 04-14-2024 Covid-19 Vaccine ( season) Covid-19 Vaccine () [facility] Start: 04-14-2024 Influenza vaccination [facility] Start: 11-10-2023 End: 11-10-2023 Patient encounter procedure 11/10/2023 1:00 PM EDT Office Visit [facility] [address] [place] [place] [phone] Peggy Nazario MD [address] [place] [address] [facility] Start: 11-08-2023 End: 02-07-2024 Basic metabolic 2000 panel - Serum or Plasma BASIC METABOLIC PNL Lab Routine Non-rheumatic mitral regurgitation Persistent atrial fibrillation (HCC) Non-ischemic cardiomyopathy (HCC) Chronic HFrEF (heart failure with reduced ejection fraction) (HCC) Expected: 11/08/2023 (Approximate), Expires: 02/07/2024 [facility] Work Phone: Comment on above: Expected: 11/08/2023 (Approximate), Expires: 02/07/2024 Start: 11-08-2023 End: 09-26-2024 ECG COMPLETE ECG COMPLETE ECG Routine Non-rheumatic mitral regurgitation Persistent atrial fibrillation (HCC) Non-ischemic cardiomyopathy (HCC) Chronic HFrEF (heart failure with reduced ejection fraction) (HCC) Expected: 11/08/2023 (Approximate), Expires: 09/26/2024 [facility] Work Phone: Comment on above: Expected: 11/08/2023 (Approximate), Expires: 09/26/2024 Start: 10-25-2023 End: 01-24-2024 Basic metabolic 2000 panel - Serum or Plasma BASIC METABOLIC PNL Lab Routine Non-rheumatic mitral regurgitation Persistent atrial fibrillation (HCC) Non-ischemic cardiomyopathy (HCC) Chronic HFrEF (heart failure with reduced ejection fraction) (HCC) Expected: 10/25/2023, Expires: 01/24/2024 [facility] Work Phone: Comment on above: Expected: 10/25/2023 , Expires: 01/24/2024 Start: 10-25-2023 End: 09-26-2024 ECG COMPLETE ECG COMPLETE ECG Routine Non-rheumatic mitral regurgitation Persistent atrial fibrillation (HCC) Non-ischemic cardiomyopathy (HCC) Chronic HFrEF (heart failure with reduced ejection fraction) (HCC) Expected: 10/25/2023, Expires: 09/26/2024 [facility] Work Phone: Comment on above: Expected: 10/25/2023 , Expires: 09/26/2024 Start: 10-10-2023 End: 01-09-2024 Basic metabolic 2000 panel - Serum or Plasma BASIC METABOLIC PNL Lab Routine Non-rheumatic mitral regurgitation Persistent atrial fibrillation (HCC) Non-ischemic cardiomyopathy (HCC) Chronic HFrEF (heart failure with reduced ejection fraction) (HCC) Expected: 10/10/2023 (Approximate), Expires: 01/09/2024 [facility] Work Phone: Comment on above: Expected: 10/10/2023 (Approximate), Expires: 01/09/2024 Start: 10-10-2023 End: 09-26-2024 ECG COMPLETE ECG COMPLETE ECG Routine Non-rheumatic mitral regurgitation Persistent atrial fibrillation (HCC) Non-ischemic cardiomyopathy (HCC) Chronic HFrEF (heart failure with reduced ejection fraction) (HCC) Expected: 10/10/2023 (Approximate), Expires: 09/26/2024 [facility] Work Phone: Comment on above: Expected: 10/10/2023 (Approximate), Expires: 09/26/2024 Start: 10-06-2023 End: 10-06-2023 Patient encounter procedure 10/06/2023 1:00 PM EST Office Visit [facility] [address] [place] [address] Peggy Nazario MD [address] [place] [address] FAWAD AMAYA DAMIEN Start: 09-26-2023 End: 12-26-2023 Basic metabolic 2000 panel - Serum or Plasma BASIC METABOLIC PNL Lab Routine Non-rheumatic mitral regurgitation Persistent atrial fibrillation (HCC) Non-ischemic cardiomyopathy (HCC) Chronic HFrEF (heart failure with reduced ejection fraction) (HCC) Expected: 09/26/2023, Expires: 12/26/2023 [facility] Work Phone: Comment on above: Expected: 09/26/2023 , Expires: 12/26/2023 Start: 08-14-2023 Advance Directive Discussion Advance Directive Discussion [facility] Start: 08-14-2023 Behavioral Health Screening Behavioral Health Screening [facility] Start: 08-14-2023 Depression Assessment Depression Ass essment [facility] Start: 04-14-2023 Covid-19 Vaccine ( season) Covid-19 Vaccine ( season) [facility] Start: 04-14-2023 Influenza vaccination Influenza Vacc ine (#1) [facility] Start: 2023 RSV Vaccine (1 - 1-d ose 75+ series) RSV Vaccine (1 - 1-dose 75+ series) [facility] Start: 08-14-2022 Advance Directive Discussion Advance Directive Discussion [facility] Start: 08-14-2022 Depression Assessment Depression Ass essment [facility] Start: 02-15-2019 Colonoscopy Colonoscopy [facility] Start: 02-15-2019 Colorectal Cancer Screening Colorectal Cancer Screening [facility] Start: 02-15-2019 Screening for malign ant neoplasm of colon [facility] Start: 2013 Bone Density Screening Bone Density Screening [facility] Start: 2013 Pneumococcal Vaccine : 65+ (1 - PCV) Pneumococcal Vaccine: 65+ (1 - PCV) [facility] Start: 2013 Pneumococcal Vaccine : 65+ (1 of 1 - PCV) Pneumococcal Vaccine: 65+ (1 of 1 - PCV) [facility] Start: 2013 Screening for osteoporosis Bone Dens ity Screening [facility] Start: 2008 RSV Vaccine (1 - 1-d ose 60+ series) RSV Vaccine (1 - 1-dose 60+ series) [facility] Start: 1998 Shingrix Vaccine (1 of 2) Abdi grix Vaccine (1 of 2) [facility] Start: 1993 Cologuard (FIT-DNA) Cologuard (FIT-D NA) [facility] Start: [address] Colonography [facility] Start: 1993 Diabetes Screening Diabetes Screenin g [facility] Start: 1993 Fecal Occult Blood Fecal Occult Bloo d [facility] Start: 1993 Lipid 1996 panel - S theresa or Plasma Lipid Screening [facility] Start: 1993 Lipid panel Lipid Screening [facility] Start: 1993 Screening for malign ant neoplasm of colon [facility] Start: 1993 Sigmoidoscopy Sigmoidoscopy [facility] Start: 1967 Pneumococcal Vaccine : 65+ Years (1 of 2 - PCV) Pneumococcal Vaccine: 65+ Years (1 of 2 - PCV) [facility] Start: 1966 Annual PCP Team Chiropractic Care luis Disease Visit Annual PCP Team Chronic Disease Visit [facility] Start: 1966 BP Controlled (<130/80) BP Controlle d (<130/80) [facility] Start: 1966 Depression Screening Depression Scre ening [facility] Start: 1966 Hepatitis C Screening Hepatitis C [facility] Start: 1966 Hepatitis C screening Hepatitis C [facility] Start: 1954 Pneumococcal Vaccine : 65+ Years (1 - PCV) Pneumococcal Vaccine: 65+ Years (1 - PCV) [facility] Start: 1954 Pneumococcal Vaccine : 65+ Years (1 of 2 - PCV) Pneumococcal Vaccine: 65+ Years (1 of 2 - PCV) [facility] Start: 1948 Covid-19 Vaccine (#1) Covid-19 Vacci ne (#1) [facility] Start: 1948 Screening for malign ant neoplasm of colon [facility] Cystourethroscopy CYSTO.PANENDO Procedures Routine Feeling of incomplete bladder emptying Stricture of female urethra, unspecified stricture type Ordered: 09/26/2023 [facility] Work Phone: Comment on above: Ordered: 09/26/2023 Dilat female urethra w/suppository&/instlj ini URETHRAL DILATION(FEMALE) Procedures Routine Stricture of female urethra, unspecified stricture type Feeling of incomplete bladder emptying Ordered: 05/07/2024 [facility] Work Phone: Comment on above: Ordered: 05/07/2024 [facility] Immunizations Immunization Date Immunization Notes Care Provider Fa [facility] 01-29-2018 tetanus toxoid, reduced diphtheria toxoid, and acellular pertussis vaccine, adsorbed Peggy Nazario MD Work Phone: [facility] 02-16-2016 tetanus and diphtheria toxoids, adsorbed, preservative free, for adult use (5 Lf of tetanus toxoid and 2 Lf of diphtheria toxoid) Peggy Nazario MD Work Phone: [facility] 12-14-2009 diphtheria, tetanus toxoids and pertussis vaccine Peggy Nazario MD Work Phone: [facility] 12-30-2004 diphtheria and tetanus toxoids, adsorbed for pediatric use Peggy Nazario MD Work Phone: [facility] NEGATED: Highlighted row has not occurred!07-20-2023 influenza virus vaccine, unspecified formulation Johan MARTINEZ [facility] Payers Date Payer Category Payer [facility] er [id number] 2016 Unknown [id number] 2016 Unknown [id number] 2013 Medicare [id number] 2013 Medicare [id number] 1948 Unknown [id number] 2.16.840.1.477067.3.579. 2.727 1948 Unknown [id number] 2.16.840.1.072316.3.579. 2.72 1948 Unknown [id number] 2.16.840.1.269527.3.579. 2.727 1948 Unknown [id number] 2.16840.1.101661.3.579. 2.72 1948 Unknown [id number] 2.16.840.1.167969.3.579. 2.727 1948 Unknown [id number] 2.16.840.1.419701.3.579. 2.72 1948 Unknown [id number] 2.16.840.1.850784.3.579. 2.727 1948 Unknown [id number] 2.16.840.1.076703.3.579. 2.727 1948 Unknown [id number] 2.16.840.1.289738.3.579. 2.727 1948 Unknown [id number] 2.16.840.1.751591.3.579. 2.727 1948 Unknown [id number] 2.16.840.1.151679.3.579. 2.727 1948 Unknown [id number] 2.16.840.1.180222.3.579. 2.72 1948 Unknown [id number] 2.16.840.1.361214.3.579. 2.727 1948 Unknown [id number] 2.16.840.1.758432.3.579. 2. 1948 Unknown [id number] 2.16.840.1.329800.3.579. 2.72 1948 Unknown [id number] 2.16.840.1.392743.3.579. 2.72 1948 Unknown [id number] 2.16.840.1.753463.3.579. 2.72 1948 Unknown [id number] 2.840.1.653031.3.579. 2.1258 1948 Unknown [id number] 2.840.1.339242.3.579. 2.1258 1948 Unknown [id number] 2.840.1.077541.3.579. 2.1258 1948 Unknown [id number] 2.840.1.840145.3.579. 2.1258 1948 Unknown [id number] 2.840.1.430063.3.579. 2.1258 1948 Unknown [id number] 2.840.1.855014.3.579. 2.1258 1948 Unknown [id number] 2.840.1.017774.3.579. 2.1258 1948 Unknown [id number] 2.840.1.462693.3.579. 2.125 1948 Unknown [id number] 2.840.1.080883.3.579. 2.125 1948 Unknown [id number] 2.840.1.476694.3.579. 2.125 1948 Unknown [id number] 2.840.1.931353.3.579. 2.1259 1948 Unknown [id number] 2.16.840.1.788793.3.579. 2.1259 1948 Unknown [id number] 2.16.840.1.636092.3.579. 2.1259 Social History Date Type Detail Facility Start: 02-23-2021 End: 04-12-2023 Tobacco smoking status Ex-smoker (finding) [facility] Comment on above: Denies Start: 07-08-2020 End: 11-25-2024 Sex Assigned At Female [facility] Tobacco smoking status Never [facility] Comment on above: Denies History of tobacco use Current smoker [facility] Start: 10-24-2017 End: 04-12-2023 Tobacco use and exposure Smokeless tobacco non-user [facility] Start: 10-24-2017 Alcohol intake Current drinke r of alcohol (finding) [facility] Start: 07-08-2020 End: 11-25-2024 History of Social function [facility] Start: 09-26-2012 End: 08-23-2023 Tobacco Comment Quit 1996. social smoker mostly [facility] Start: 1948 Sex Assigned At Not on [...] [Reported] [facility] 11-22-2023 Functional Status N/A [facility] 10-05-2023 Functional Status N/A [facility] 09-17-2023 Functional Status N/A [facility] 09-12-2023 Functional Status N/A [facility] 07-21-2023 Functional Status No [facility] 07-20-2023 Functional Status No [facility] 07-07-2023 Functional Status N/A [facility] 07-03-2023 Functional Status N/A [facility] 07-02-2023 Functional Status [facility] 06-30-2023 Functional Status N/A [facility] 04-26-2023 Functional Status N/A [facility] 04-04-2023 Functional Status N/A [facility] 01-28-2023 Functional Status N/A [facility] 10-19-2022 Functional Status N/A [facility] 10-03-2022 Functional Status N/A [facility] 09-01-2022 Functional Status No [facility] 06-13-2022 Functional Status No [facility] 03-03-2022 Functional Status N/A [facility] 02-15-2022 Functional Status N/A [facility] Clinical Notes 12-24-2021 to 05-28-2025 Hannah Brian MD - 05/14/2025 11:40 AM Naveen Brian MD - 05/08/2025 2:20 PM Naveen Brian MD - 04/21/2025 3:00 PM EDTTelephone Encounter - Acacia Suarez - 04/19/2025 7:12 PM EDT Note Date & Type Note Facility 05-28-2025 Note 05/28/25 1446 Admission Assessment Questions Verify insurance with patient Yes Do you understand medical disease or what brought you into the hospital? Yes Who is your current PCP? Hannah Brian MD Can I schedule a follow up appointment for you at the time of discharge? No (Patient stated that she will call and schedule an appointment if needed. Patient stated that the office usually gets her in quickly.) Does patient qualify for Complex Care Management Enrollment? No Do you understand why you are taking your current medications? Yes Are you taking your medications as prescribed? Yes Did patient provide teach back? No Pharmacy Bedside Delivery Status Interested Does the patient have a onsite case manager assigned to them through their insurance? No Living Arrangement (Current/Prior to Hospitalization) Private residence (Home, alone. 2 story home with 1 step to enter.) Does the patient have history of HHC or SNF? No Assistive Device Not applicable Patient's goal for discharge Home Was patient reminded that goal for discharge is 11am? No Does the patient have transportation at discharge? Yes (Son-in-law has her car and will transport home.) Type of Residence Private residence Is PT/OT appropriate? No Is PT/OT ordered? No Is SW consult appropriate? No Is SW consult ordered? Yes Do you understand the benefits of MyChart? Yes Were you able to send link and activate MyChart? MyChart already active [facility] 05-28-2025 Note Adult Nutrition Asse ssment: Name: Harjit Asencio Date: 1950 Date of Visit: 05/28/25 Admission Dx: Nonrheumatic tricuspid valve regurgitation [I36.1] Nonrheumatic mitral (valve) insufficiency [I34.0] Reason for assessment: high risk BMI for age Information obtained from: patient, medical record, and nurse Medical History[1] Current Medications: apixaban, 5 mg, oral, BID atorvastatin, 40 mg, oral, q PM carvedilol, 6.25 mg, oral, BID with meals famotidine, 20 mg, oral, BID LORazepam, 1 mg, oral, TID pantoprazole, 40 mg, oral, Daily before breakfast spironolactone, 12.5 mg, oral, Once Daily Labs: 0 Lab Value Date/Time POCGLU 90 05/27/2025 0829 BUN 14 05/28/2025 1028 CREATININE 0.93 05/28/2025 1028 NA 135 (L) 05/28/2025 1028 K 4.6 05/28/2025 1028 HGB 12.3 05/28/2025 1028 WBC 12.85 (H) 05/28/2025 1028 Allergies: Allergies[2] Nutrition Problems: Swallowing Assessment: Pt reported that her throat is sore Mouth: pt denies chewing difficulty Abdominal Assessment: Pt reported that she was having constipation, but took prune juice and it turned into diarrhea. 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 Skin Integrity: cath and art line sites Edema: RUE non-pitting; Other Factors: EF 40% Nutrition Data/Clinical Indicators of Nutrition Status: Height: 165.1 cm (5' 5 ) Weight: 59.2 kg (130 lb 9.6 oz) BMI (Calculated): 21.73 Wt Readings from Last 10 Encounters: 05/28/25 59.2 kg (130 lb 9.6 oz) 05/19/25 58.5 kg (129 lb) 03/31/25 60.3 kg (133 lb) 02/10/25 61.7 kg (136 lb) 01/23/25 60.8 kg (134 lb) 01/15/25 62.9 kg (138 lb 9.6 oz) 12/23/24 61.2 kg (135 lb) 11/29/24 61.7 kg (136 lb) 10/22/24 60.8 kg (134 lb) 07/02/24 55.8 kg (123 lb) IBW: 56.8 kg Low BMI: <22 if >/= 70 yrs old (non-severe GLIM criteria) Weight change: Documented weight history shows that weight has been pretty stable. Pt reported that she has gained weight related to fluid. Nutrition Assessment: During assessment pt was distracted easily. Pt reported that for 3 days she was not able to sleep, so that affected her appetite. She reported that other than that she was eating good. Pt will watch want she eats and eats a lot of salad, but not a lot of protein. Pt reported that she does not eat eggs or oatmeal. Reported she is lactose intolerant. Does not consume ONS and does not want it here. Pt reported that she adds very little salt to her food and will measure her salt. Occasionally will eat healthy choice meals. Dietary Orders (From admission, onward) Start Ordered 05/27/25 3203 Regular Diet Heart Healthy/HTN, CABG,Stroke, (2gNA, low fat, low cholesterol) Diet effective now Question Answer Comment Room Service? Yes Fat restriction: Heart Healthy/HTN, CABG,Stroke, (2gNA, low fat, low cholesterol) 05/27/25 17405/27/25 1743 Special Kitchen Request Once Comments: Harisiyaki salmon Mashed potatoes and gravy Chocolate ice cream Bottled water 05/27/25 17405/27/25 1406 Special Kitchen Request Once Comments: Please send salmon and a side salad with ranch 05/27/25 1405 Nutrition Risk: Low Nutrition Diagnosis: No nutrition diagnosis at this time. Malnutrition Assessment: Per Registered Dietitian assessment and evaluation, patient does not currently meet criteria OR there is not enough information to support the diagnosis of malnutrition per the clinical criteria set by the Academy of Nutrition and Dietetics (AND) and the [place] Society of Enteral and Parenteral Nutrition (ASPEN). Nutrition Education: Diet literature: Heart Failure Nutrition Therapy (explained CHF-diet relationship, recommended daily sodium intake of no more than 2,000 mg/d (or 1~ tsp salt/d), recommended adequate intake of fruits/vegetables at each meal and for snacks, encouraged choosing lean proteins, encouraged preparing more meals at home, recommended decreasing frequency of eating out/take-out foods, and encouraged avoiding or limiting salty snacks/processed foods/frozen foods ) Expected compliance/patient understanding: fair, pt was distracted during education Teach back method: pt verbalized understanding Time spent: 15 minutes Treatment Plan: Continue current diet Monitor intakes Daily weights Monitor for unintentional weight changes Continue to review diet education as able Monitor and correct electrolytes as needed Goals: Adequate po intakes (kcals and protein); >75% meals Understanding of nutrition education/adherence to diet recommendations No significant unintentional wt loss Nutrition-related labs (magnesium, phosphorus, BMP) wnl To reach the Clinical Dietitian, please utilize GRAYL chat Monday-Monday from 8AM-4PM or call extension [phone]. For weekends (Monday-Monday) and holidays, the Clinical Dietitian can be reached via pager ([phone]) from 9AM-3PM. The Clinical Nutrition Department is un (more content not included)... [facility] 05-28-2025 Note Attestation signed by Gabe Martinez MD at 05/28/2025 2:06 PM By using the attestations below, the signing clinician agrees that I have read and verify that the documentation has been personally reviewed by me and ensure that the documentation accurately reflects the encounter. GC: I personally saw this patient on the day of the encounter with Dr. Saeed, Dr. Stallworth, Dr. Patton, performed the mansfield portion(s) of the service and participated in the management and confirm the resident's documentation. Please note there may be an additional personal documentation from me. Cardiology Progress Note Subjective Interval History Patient was seen and examined at bedside. Patient was lying comfortably in bed. Patient denies any chest pain, shortness of breath, PND, dizziness/lightheadedness. On examination, bilateral groin access sites were intact without bleeding, oozing, or evidence of hematoma. Distal pulses were palpable at +2 bilaterally, and the patient denied numbness, tingling, or pain at or distal to the access sites. Subjective: Harjit Asencio is a 75 y.o. female with PMH significant for HFrEF (EF 40%), chronic atrial fibrillation maintained on digoxin and carvedilol, severe mitral regurgitation s/p ANA using an XTW MitraClip device, hypertension, and hypothyroidism. Patient was directly admitted for transcather edge to shantal repair with TriClip for her severe tricuspid regurgitation. Her symptoms have been worsening despite optimized medical therapy, remains symptomatic with NYHA Class III heart failure. Relevant Cardiac HX: Her clinical decline began in June 2023, [...] without complications, and she remained hemodynamically stable throughout Objective Objective: Patient Vitals for the past 24 hrs: BP Temp Temp src Pulse Resp SpO2 Height Weight 05/28/25 0436 -- -- -- -- -- -- -- 59.2 kg (130 lb 9.6 oz) 05/28/25 0400 129/65 36.1 ???C (97 ???F) Temporal 70 15 96 % -- -- 05/28/25 0000 140/61 36.4 ???C (97.5 ???F) Temporal 70 (!) 8 98 % -- -- 05/27/25 2300 147/82 -- -- 72 16 98 % -- -- 05/27/25 2000 132/73 36.2 ???C (97.2 ???F) Temporal 72 11 97 % -- -- 05/27/25 1800 140/75 -- -- 70 11 99 % -- -- 05/27/25 1700 (!) 144/97 -- -- 14 -- -- -- 05/27/25 1635 153/78 36.3 ???C (97.3 ???F) Temporal 71 18 99 % 1.651 m (5' 5 ) -- 05/27/25 1545 -- -- -- 70 15 98 % -- -- 05/27/25 1540 138/75 -- -- 70 25 99 % -- -- 05/27/25 1530 -- -- -- 70 14 98 % -- -- 05/27/25 1525 147/88 -- -- 70 (!) 9 99 % -- -- 05/27/25 1515 -- -- -- 72 14 97 % -- -- 05/27/25 1510 149/79 -- -- 73 17 98 % -- -- 05/27/25 1500 -- -- -- 70 14 100 % -- -- 05/27/25 1445 -- -- -- 70 16 99 % -- -- 05/27/25 1430 -- -- -- 70 (!) 7 95 % -- -- 05/27/25 1415 -- -- -- 70 11 98 % -- -- 05/27/25 1400 -- -- -- 72 13 98 % -- -- 05/27/25 1345 -- -- -- 70 14 98 % -- -- 05/27/25 1330 -- 36.1 ???C (97 ???F) Temporal 70 15 99 % -- -- 05/27/25 1250 112/69 -- -- 70 16 100 % -- -- 05/27/25 0930 89/52 -- -- 70 16 100 % -- -- 05/27/25 0920 -- -- -- -- -- 100 % -- -- 05/27/25 0803 152/63 35.9 ???C (96.6 ???F) Temporal 72 16 100 % 1.651 m (5' 5 ) 58.5 kg (128 lb 15.5 oz) Physical Examination: Physical Exam Physical Examination: Vitals: 05/28/25 0400 BP: 129/65 Pulse: 70 Resp: 15 Temp: 36.1 ???C (97 ???F) SpO2: 96% Constitutional: Vitals reviewed,comfortable breathing HEENT: Normocephalic, Atraumatic, Moist oral mucosa Eyes: Clear conjunctiva, Pupils reactive to light Neck: Supple, No thyromegaly CV: Normal Rate and Rhythm, No murmur, No pedal edema Chest/Pulm: Normal respiratory effort, Lungs clear to auscultation Abdomen: Soft, No tenderness, No organomegaly Musculoskeletal: No clubbing or cyanosis, Normal ROM in head and neck, bilateral fem cath site with no visible swelling/hematoma. Intact distal pulses Lymph Nodes: no cervical adenopathy noted Ski (more content not included)... [facility] 05-27-2025 Note Patient: Harjit Asencio Procedure Summary Date: 05/27/25 Room / Location: [facility] PURIFICATION WORKER 3 / [facility]ULAR [facility] (Cath) Anesthesia Start: 909 Anesthesia Stop: 132 Procedure: Transcatheter Ocuj-Mo-Cmts Repair (TriClip) Diagnosis: Chronic systolic heart failure (CMS/HCC) Nonrheumatic tricuspid valve regurgitation (s/p successful ANA of the tricuspid valve using 2 XTW TriClips.) Providers: Rafael Vega MD Responsible Provider: Tushar Hoover MD Anesthesia Type: general ASA Status: 3 Anesthesia Type: general Vitals Value Taken Time BP 144/97 05/27/25 17:00 Temp 36.3 ???C (97.3 ???F) 05/27/25 16:35 Pulse 70 05/27/25 17:10 Resp 16 05/27/25 17:10 SpO2 100 % 05/27/25 17:10 Vitals shown include unfiled device data. Anesthesia Post Evaluation Patient location during evaluation: PACU Patient participation: complete - patient participated Level of consciousness: awake and alert Pain score: 0 Pain management: adequate Airway patency: patent Cardiovascular status: acceptable Respiratory status: acceptable and room air Hydration status: acceptable Patient is hemodynamically stable and is able to be discharged from PACU per anesthesia protocol. There were no known notable events for this encounter. [facility] 05-27-2025 Note Spiritual Care Note Patient name: Harjit Asencio Age: 75 y.o. Room: [facility] VASCULAR POOL/NONE 05/27/25 1500 Clinical Encounter Type Visited With Patient Type of Visit Consult Last Visit Date 05/27/25 Referral From Nurse Patient Spiritual Care Encounters Spiritual Care Assessment Moderate to severe anxiety;Family issues (Pt was just out of cardiac procedure. She was anxious about family situations and talkative about her concerns--in a cyclical fashion. Pt said she has friends who are supportive, but doesn't want to be overbearing in those relationships.) Pastoral Intervention Emotional support;Spiritual support;[place] (Provided caring listening presence and support.) Response Appreciative [facility] 05-27-2025 Note Error [facility] 05-27-2025 Note Airway Date/Time: 05/27/2025 9:23 AM Reason: elective General Information and Staff Patient location during procedure: OR Anesthesiologist: Tushar Hoover MD Resident/ELECTRICAL AND RADIO MECHANIC/CAA: Roque Moser MD Performed: resident/ELECTRICAL AND RADIO MECHANIC/CAA Patient Condition Indications for airway management: anesthesia MILS maintained throughout Sedation level: deep Final Airway Details Preoxygenated: yes Final airway type: endotracheal airway Successful airway: ETT Cuffed: yes Successful intubation technique: video laryngoscopy Adjuncts used in placement: intubating stylet Endotracheal tube insertion site: oral Blade: Cunningham Blade size: #3 ETT size (mm): 7.5 Cormack-Lehane Classification: grade I - full view of glottis Placement verified by: chest auscultation and capnometry Measured from: lips ETT to lips (cm): 22 Number of attempts at approach: 1 Number of other approaches attempted: 0 [facility] 05-27-2025 Note Arterial Line: Date/Time: 05/27/2025 8:50 AM An arterial line was placed Procedure performed using ultrasound guidance.in the pre-op for the following indication(s): continuous blood pressure monitoring and blood sampling needed. A 20 G (size) (length), Angiocath (type) catheter was placed, Seldinger technique used , into the radial artery, secured by . Events: hematoma during insertion and greater than 3 attempts. Medications Administered midazolam (VERSED) IV - intravenous 2 mg - 05/27/2025 8:50:00 AM Additional notes: Unsuccessful placement of arterial line. # attempts on right wrist and one attempt on left wrist. Staffing Performed: resident/ELECTRICAL AND RADIO MECHANIC/CAA and anesthesiologist Anesthesiologist: Tushar Hoover MD Resident/ELECTRICAL AND RADIO MECHANIC: Johan Gill MD Other anesthesia staff: Roque Moser MD Performed by: Johan Gill MD Authorized by: Tushar Hoover MD [facility] 05-27-2025 Note Pt in pre-op bay 09. Pt displays understanding of instructions to remove all clothing and personal items. Pt informed anesthesia and physician will be at the bedside to discuss procedure prior to going back at scheduled procedure time. All questions answered at this time. [facility] 05-27-2025 Note Patient: Harjit Asencio Procedure Information Date/Time: 05/27/25829 Procedure: Transcatheter tricupsid valve repair - this is for Triclip, with diagnosis of severe tricuspid regurgitation Location: [facility] FAT PURIFICATION WORKER 3 / [facility] (Cath) Providers: Rafael Vega MD Relevant Problems Cardio (+) Atherosclerosis of aorta (+) Atrial fibrillation, persistent (CMS/HCC) (+) Non-rheumatic mitral regurgitation (+) Nonrheumatic mitral (valve) insufficiency (+) Nonrheumatic mitral valve regurgitation (+) Paroxysmal atrial fibrillation (CMS/HCC) (+) Primary hypertension (+) Severe mitral regurgitation GI (+) Acid reflux /Renal (+) Renal lesion Clinical information reviewed: Tobacco Allergies Meds Problems Med Hx Surg Hx Fam Hx Soc Hx Physical Exam Airway Mallampati: II TM distance: >3 FB Neck ROM: full Cardiovascular Rhythm: irregular Rate: normal Dental - normal exam Pulmonary - normal exam Neurological Abdominal Abdomen: soft Anesthesia Plan ASA 3 general (A line) intravenous induction Anesthetic plan and risks discussed with patient. Use of blood products discussed with patient who. Plan discussed with attending and resident. Additional Equipment Requests [facility] 05-19-2025 Note [place] [facility] Subjective Harjit Asencio is a 75 y.o. year old female patient being seen for 2 month follow up. Patient states the last 2 week she hasn't been feeling well, patient states she feels like things are wrong now, patient states the valve is acting up, which is causing lots of anxiety, Dr. Yao stated to here where this valve is located it a more difficult procedure. Patient states she is SOB, VELAZCO with activity, wore out, acid reflux acting up, anxiety, patient states the c diff and bleeding out from having her teeth removed. Patient would like to go to [facility] for cardiac rehab. The blood thinner are causing her problems. Patient Active Problem List Diagnosis Acid reflux [...] insomnia Urethral stricture Urinary frequency Urinary urgency detention 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 Paroxysmal atrial fibrillation (CMS/HCC) Presence of biventricular automatic cardioverter/defibrillator (AICD) Nonrheumatic mitral valve regurgitation Severe mitral regurgitation S/P mitral valve repair Nonrheumatic mitral (valve) insufficiency Family History Problem Relation Name Age of [...] At her recent visit with cardiology at [facility] on 09/26/2023 valsartan was stopped and low-dose lisinopril 5 mg once daily was added. The plan was to add Jardiance. There is note of her to being evaluated by CT surgery Dr. Sorto regarding candidacy for cardiac surgery and she was deemed high risk. She was also evaluated at [facility] cardiothoracic surgery. Initial workup for [...] moderately elevated right-sided pressures RVSP 49 mmHg. She then und (more content not included)... [facility] 05-14-2025 History of Present illness Narrative Images [...] to monitor for. 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 Take itdd-rzh-matxrpa and prescription medicines only as told by [...] people, if p (more content not included)... [facility] 04-24-2025 Note Progress Note - Steph howard [...] understanding and all other questions were answered. [facility] 04-24-2025 Note I sent you a letter via email. Let me know if you were able to print/send. Thanks! [facility] 04-21-2025 History of Present illness Narrative Images from the original note were not included. Patient: Harjit Ruiz Elif : 1950 PCP: Hannah Brian MD Harjit Asencio is a 75 y.o. female presenting today for follow-up after being seen in ED. The main problem requiring evaluation was abd pain. The discharge summary and/or Transitional Care Management documentation was reviewed. Medication reconciliation was performed as indicated via the Cyrus as Reviewed timestamp. Flowsheet Row Patient Outreach from 04/21/2025 in [facility] with Loida Nathan LPN Hospital Information ED, Hospital or Shelter Facility Discharge? ED Diagnosis Abd pain, diarrhea Discharge Date 04/19/25 Discharged To: Home Setting Discharge [facility] Engagement Admission Date 04/19/25 Medications Prescription Comments [...] heart failure (HCC) Atrial fibrillation, persistent (HCC) detention 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 Anxiety Reviewed ED course with pt including labs and imaging Discussed sx tx and concerning sx to monitor for. Encouraged follow up with specialists as discussed Follow up if symptoms worsen or fail to improve. documented in this encounter [facility] 04-19-2025 Telephone encounter Note Luis Brian MD Just talked to him. Thank you! [facility] 04-19-2025 Miscellaneous Notes Luis Brian MD Just talked to him. Thank you! Harjit Asencio is a 75 y.o. female . [facility] ER called because pt came in today with abdominal pain and diarrhea. DR Jayson Calloway is requesting consult with Dr Brian. Please call [phone] . documented in this encounter [facility] 04-19-2025 Note ED Patient Education Note Gastroenterology [...] these instructions at home: Medicines ??? Take rlyu-oey-gizbjla and prescription medicines only as told by [...] provider. Document Revised: 05/17/2023 Document Reviewed: 05/17/2023 OneTouch Patient Education ? 2023 jellyfish. [facility] 04-19-2025 Telephone encounter Note Harjit Asencio is a 75 y.o. female . [facility] ER called because pt came in today with abdominal pain and diarrhea. DR Jayson Calloway is requesting consult with Dr Brian. Please call [phone] . [facility] 04-07-2025 History of Present illness Narrative Images [...] - as above documented in this encounter [facility] 03-31-2025 Note [place] [facility] Subjective Harjit Asnecio is a 75 y.o. year old female [...] insomnia Urethral stricture Urinary frequency Urinary urgency detention 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 Paroxysmal atrial fibrillation [...] At her recent visit with cardiology at [facility] on 09/26/2023 valsartan was stopped and low-dose lisinopril 5 mg once daily was added. The plan was to add Jardiance. There is note of her to being evaluated by CT surgery Dr. Sorto regarding candidacy for cardiac surgery and she was deemed high risk. She was also evaluated at [facility] cardiothoracic surgery. Initial workup for her mitral valve disease was started. Spironolactone was changed to half tablet twice a day instead of 1 tablet once a day. She was also recommended to start taking digoxin at night instead of the morning. At visit with nc on 10/16/2023 I increased her carvedilol to [...] She has under (more content not included)... [facility] 02-10-2025 Note [place] [facility] Subjective Harjit Asencio is a 74 y.o. year old female patient being seen for 30 day s/p MitraClip. Had echo 02/07/2025. C/o hematuria. 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 The plan was to add Jardiance. There is note of her to being evaluated by CT surgery Dr. Sorto regarding candidacy for cardiac surgery and she was deemed high risk. She was also evaluated at [facility] cardiothoracic surgery. Initial workup for [...] on 12/01/2023 I referred her to [facility] for consideration of further management of her [...] Patient Position: S (more content not included)... [facility] 01-23-2025 Note Patient is here [...] a UTI. Review of Systems Constitutional: Negative. [facility] 01-23-2025 Note Cardiovascular Medic ine [facility] SUBJECTIVE Chief Complaint Patient presents with [...] insomnia Urethral stricture Urinary frequency Urinary urgency detention 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 Paroxysmal atrial fibrillation [...] 45 tablet, Rfl: (more content not included)... [facility] 01-22-2025 History of Present illness [...] Flowsheet Row Patient Outreach from 01/20/2025 in [facility] with Loida Nathan LPN Hospital Information [...] visit: Atrial fibrillation, persistent (HCC) (CMS/HCC) (Primary) 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 Mitral valve regurgitation due to cardiomyopathy (HCC) (CMS/HCC) Anxiety Reviewed hospital and ED course with pt Discussed sx tx, side effects of meds and concerning sx to monitor for. No changes in meds at this time Encouraged continued follow up with specialists Follow up if symptoms worsen or fail to improve. documented in this encounter [facility] 01-14-2025 Note Patient: Harjit Asencio Procedure Summary Date: 01/14/25 Room / Location: [facility] FAT PURIFICATION WORKER 3 / [facility] (Cath) Anesthesia Start: 830 Anesthesia Stop: 1215 Procedure: Transcatheter mitral valve repair Diagnosis: Nonrheumatic mitral valve regurgitation (s/p successful ANA of the mitral valve using XTW MitraClip.) Providers: Rafael Vega MD Responsible Provider: Lobo Machado MD Anesthesia [...] no known notable events for this encounter. [facility] 01-14-2025 Note Patient intubated un bart observation by anesthesia [facility] 01-14-2025 Note Patient: Harjit Asencio Procedure Information Anesthesia Start Date/Time: 01/14/25830 Procedure: Transcatheter mitral valve repair - case for general anesthesia approved by Dr Callejas, NPCR Location: [facility] FAT PURIFICATION WORKER 3 / [facility] (Cath) Providers: Rafael Vega MD Relevant Problems Cardio (+) Atherosclerosis of [...] with attending and resident. Additional Equipment Requests [facility] 01-14-2025 Note Arterial Line: Date/Time: [...] no complications. Additional notes: [place] Staffing Performed: resident/ELECTRICAL AND RADIO MECHANIC/CAA Anesthesiologist: Lobo Machado MD Resident/ELECTRICAL AND RADIO MECHANIC: Margaret Briceno MD Performed by: Micheline Mendoza MD Authorized by: Lobo Machado MD [facility] 01-14-2025 Note Airway Date/Time: 01/14/2025 8:52 AM Urgency: elective Airway not difficult General Information and Staff Patient location during procedure: [place] Anesthesiologist: Lobo Machado MD Resident/ELECTRICAL AND RADIO MECHANIC/CAA: Margaret Briceno MD Performed: resident/ELECTRICAL AND RADIO MECHANIC/CAA Indications and Patient Condition Indications for airway [...] 1 Number of other approaches attempted: 0 [facility] 01-13-2025 Telephone encounter Note Rx sent, HR OOO. OARRS appropriate. [facility] 01-13-2025 Miscellaneous Notes Rx sent, HR OOO. OARRS appropriate. HR OOO Pt needs refill on Lorazapam sent to [facility]. documented in this encounter [facility] 01-13-2025 Telephone encounter Note HR OOO [facility] 01-13-2025 Telephone encounter Note Pt needs refill on Lorazapam sent to [facility]. [facility] 01-07-2025 History of Present illness Narrative Images [...] in regimen. Continue to follow w/ specialists detention 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 - Continue to monitor for abnormal bruising or bleeding Primary hypertension (CMS/HCC) Stable, continue to monitor. No change in regimen. Anxiety Stable, continue to monitor. No change in regimen. Panic attack (CMS/HCC) Stable, continue to monitor. No change in regimen. documented in this encounter [facility] 12-25-2024 Note I have reviewed this patient's medical record, cardiac imaging. she has severe secondary (functional) mitral regurgitation, chronic heart failure with reduced ejection fraction and has persistent symptoms NYHA class III despite maximally tolerated guideline-directed medical therapy. I think that she is a good candidate for and would benefit from transcatheter ejts-es-sbdc repair. 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 The plan was to add Jardiance. There is note of her to being evaluated by CT surgery Dr. Sorto regarding candidacy for cardiac surgery and she was deemed high risk. She was also evaluated at [facility] cardiothoracic surgery. Initial workup for [...] and are negativ (more content not included)... [facility] 12-17-2024 History of Present illness [...] to monitor for. documented in this encounter [facility] 11-25-2024 History of Present illness Narrative Images [...] meds and concerning sx to monitor for. 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 No change in regimen. Continue to follow w/ specialists Primary hypertension (CMS/HCC) Stable, continue to monitor. No change in regimen. Continue to follow w/ specialists documented in this encounter [facility] 11-18-2024 History of Present illness Narrative Images [...] POCT Urinalysis dipstick - Urine culture; Future detention 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 - continue to monitor for abnormal bruising/bleeding Atrial fibrillation, persistent (HCC) (CMS/HCC) Stable, continue to monitor. No change in regimen. Continue to follow w/ cardiology Primary hypertension (CMS/HCC) Stable, continue to monitor. No change in regimen. Continue to follow w/ cardiology documented in this encounter [facility] 10-22-2024 Note [place] [facility] Consult Note [place] [facility] Reason for visit: Afib+ CMP 10/22/24 Patient underwent a DINING CAR SERVER-P implant on 02/28/2024 when a DINING CAR SERVER-P was placed in a submuscular fashion with [...] she has done very well since her DINING CAR SERVER. Device check performed on 07/30/2024 shows patient being BiV paced 98% of the time 02/22/24 Pt here to discuss about DINING CAR SERVER-P Prior HPI: Harjit Asencio is a 74 [...] MR and subsequently had a visit with [facility] where evaluation was being done for surgical correction of mitral valve but was noted to have high risk and hence deferred. She also had an evaluation for the same at [place] surgery and thereafter had seen in [...] Tobacco Use: Medium Risk (10/08/2024) Received from [facility] Patient History Smoking Tobacco Use: Former Smokeless Tobacco Use: Never Passive Exposure: Never Alcohol Use: Not At Risk (08/05/2024) Received from [facility] AUDIT-C Frequency of Alcohol Consumption: Never Average Number of Drinks: Patient does not drink Frequency of Binge Drinking: Never Financial Resource Strain: Not on file Food Insecurity: Not on file Transportation Needs: Not on file Physical Activity: Not on file Stress: Not on file Social Connections: Not on file Intimate Partner Violence: Unknown (10/05/2023) [place] Safety & Environment Fear of Current or Ex-Partner: Not on file Emotionally Abused: Not on file Physically Abused: Not on file Sexually Abused: Not on file Physically or Sexually Abused: Not on file Depression: Not at risk (08/05/2024) Received from [facility] PHQ-2 Patient Health Questionnaire-2 Score: 0 Housing [...] 3 LORazepam (Ativan) (more content not included)... [facility] 10-08-2024 History of Present illness [...] from the original note were not included. Harjti Asencio is a 74 y.o. female presents with chief complaint of Follow-up HPI: History of Present Illness The patient is a 74-year-old female who presents for evaluation of anxiety, weight gain, and adverse effects from carvedilol. She reports an exacerbation of her symptoms following an increase in her carvedilol dosage, which was prescribed by her user experience team lead. She has been experiencing shortness of breath, [...] and plans to discuss this with her user experience team lead during her upcoming appointment. She has been [...] and plans to discuss this with her user experience team lead during her upcoming appointment. She has been [...] and plans to discuss this with her user experience team lead during her upcoming appointment. She has been [...] dosage of carvedilol was increased by her user experience team lead. Symptoms include shortness of breath, irregular heart rhythm, and night terrors. Her blood pressure is currently stable. She is advised to discuss these symptoms with her user experience team lead during her upcoming appointment next month. 2. [...] for this patient. documented in this encounter [facility] 09-20-2024 Telephone encounter Note Pt needs a refill on Ativan [facility] 09-20-2024 Miscellaneous Notes Pt needs a refill on Ativan [facility] documented in this encounter [facility] 08-12-2024 History of Present illness Narrative Harjit [...] Negative - 160(16) ++++ mg/dL Negative Specific [place], UA 1 - 1.03 1.005 Blood, UA [...] persistent (HCC) (CMS/HCC) Continue current medication regimen. 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 documented in this encounter [facility] 08-05-2024 History of Present illness Narrative Images from the original note were not included. Stephan Boo, DO Obstetrics and Gynecology Harjit Asencio 1950 08/05/24 [id number] Yearly Wellness Exam Chief Complaint Patient presents with Gynecologic Exam Medicare off year. LMP: MIR BS 1983 HRT: None Last pap 07-24-23 neg. Last mammogram 12-05-22 [facility]. Not sure when she can do it [...] 02/28/2024 implantation of biventricular ICD submuscular implant DE TOTAL ABDOM HYSTERECTOMY 1983 MIR BS REFRACTIVE [...] angle tenderness, no obvious scoliosis/kyphosis. FEMALE GENITOURINARY: circular distributor in room - atrophic hormone - cuff [...] 08/05/24 Time 5:00PM. documented in this encounter [facility] 07-02-2024 Note Patient here for fol [...] All other systems reviewed and are negative. [facility] 07-02-[address] 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 (more content not included)... [facility] 07-01-2024 History of Present illness [...] eat. She has an appointment with a lab animal technician tomorrow. She has been taking spironolactone, [...] research. She will follow up with the lab animal technician and nurse practitioner tomorrow to check [...] for this patient. documented in this encounter [facility] 06-27-2024 Note [facility] 06-27-2024 History of Present illness Narrative Harjit [...] She is here today for cystoscopy CYSTOSCOPY M.D.'S 30 DAY PHYSICAL EXAM Primary Indication: Bladder [...] Urology and Reconstructive Pelvic Surgery/Urology [facility] [place] [facility] Bulmaro aleman Krista documented in this encounter [facility] 06-27-2024 Nurse Note PROCEDURE NURSE ASSESSMENT Patient [...] patient verbalizes understanding: yes Clarice Gardiner MA [facility] 06-27-2024 Instructions Clarice Gardiner MA - 06/27/2024 10:59 AM EST [facility] DR. RAPHAEL GOLDSMITH AFTER YOUR [...] office: Dr. Raphael Goldsmith M.D., Office PH#: [phone] After 5 pm and on weekends: Call [phone] and ask for the urologist applications tester. The doctor will need to know that you have had a cystoscopy and what symptoms you are having. documented in this encounter [facility] 06-27-2024 Nurse Note PROCEDURE NURSE ASSESSMENT Patient [...] with drinking extra fluids. Please call the [employer] office at [phone], Monday-Monday, 8 am - 5 pm, with any questions you may have. Please ask to be transferred to the Urology nurses in the back office area. If you call after 5 PM or on the weekends, please call [phone], ask for the Urologist applications tester. Thank You, Your Urology Team documented in this encounter [facility] 06-27-2024 Nurse Note POST INSTRUCTIONS Cystoscopy Procedure [...] with drinking extra fluids. Please call the [employer] office at [phone], Monday-Monday, 8 am - 5 pm, with any questions you may have. Please ask to be transferred to the Urology nurses in the back office area. If you call after 5 PM or on the weekends, please call [phone], ask for the Urologist applications tester. Thank You, Your Urology Team [facility] 06-10-2024 Note AV NODE ABLATION PRO CEDURE [...] MR and subsequently had a visit with [facility] where evaluation was being done for surgical correction of mitral valve but was noted to have high risk and hence deferred. She also had an evaluation for the same at [facility] surgery and thereafter had seen in follow-up [...] poor candidate for Afib ablation, she underwent DINING CAR SERVER-P on 02/28/24. She is here for AVN [...] Continue anticoagulation. Patty Yao MD Cardiac Electrophysiology. [facility] 06-10-2024 Note Patient: Harjit Asencio Procedure Information Date/Time: 06/10/24 1200 Procedure: AV node ablation - PC APPROVED Location: [facility] FAT PURIFICATION WORKER 1 EP / [facility] (Cath) Providers: Patty Yao MD Clinical information reviewed: Allergies Meds OB Status Physical Exam Airway Mallampati: II TM distance: >3 FB Cardiovascular Dental Pulmonary Abdominal Anesthesia Plan ASA 3 CSE Anesthetic plan and risks discussed with patient. Use of blood products discussed with patient who. Additional Equipment Requests [facility] 05-07-2024 Note [facility] [facility] [place] [facility] History of Present illness Narrative [facility] FEM[facility] [...] repeat urethral dilation in 2-3 months at [place] in office -Plan to assess for atrophic vaginitis at time of urethral dilation due to patient concern for irritation around upper thigh/vagina Erika Ho MD I have personally performed a face to face diagnostic evaluation on this patient. My findings are as above. Raphael Goldsmith MD plan urethral dil per req documented in this encounter [facility] 05-07-2024 Nurse Note Post Void Residual done on patient with 0 cc residual volume remaining. MD notified. CARISSA Garvey [facility] 05-07-2024 Nurse Note Post Void Residual done on patient with 0 cc residual volume remaining. notified. CARISSA Garvey documented in this encounter [facility] 12-22-2023 Telephone encounter Note The following approved medication requests have been transmitted electronically. Requested Prescriptions Signed Prescriptions Disp Refills lisinopril (ZESTRIL) 10 mg tablet 45 tablet 0 Sig: take 1/2 tablet by mouth once daily Authorizing Provider: Benitez SAMUELS pantoprazole DR (PROTONIX) 40 mg tablet 90 tablet 0 Sig: take 1 tablet by mouth every day Authorizing Provider: Benitez SAMUELS APRN.CORPORATE COMMUNICATIONS ASSOCIATE [facility] 12-22-2023 Miscellaneous Notes The following approved medication requests have been transmitted electronically. Requested Prescriptions Signed Prescriptions Disp Refills lisinopril (ZESTRIL) 10 mg tablet 45 tablet 0 Sig: take 1/2 tablet by mouth once daily Authorizing Provider: Benitez SAMUELS pantoprazole DR (PROTONIX) 40 mg tablet 90 tablet 0 Sig: take 1 tablet by mouth every day Authorizing Provider: Benitez SAMUELS APRN.CORPORATE COMMUNICATIONS ASSOCIATE documented in this encounter [facility] 11-22-2023 Hospital Discharge instructions Patient Education 11/22/2023 20:40:30 Constipation, Adult, Odxl-jw-Hdlz Constipation, Adult Constipation is when a person [...] high in fat and sugar, such as: ?Egyptian fries. ?Hamburgers. ?Cookies. ?Candy. ?Soda. Drink enough fluid to keep your pee (urine) pale yellow. General instructions Exercise regularly or as told by your doctor. Try to do 150 minutes of exercise each week. Go to the restroom when you feel like you need to poop. Do not hold it in. Take zovh-kbz-xjtvhdu and prescription medicines only as told by [...] keep your pee (urine) pale yellow. Take anfr-lud-hlgcisi and prescription medicines only as told by your doctor. These include any fiber supplements. This information is not intended to replace advice given to you by your health care provider. Make sure you discuss any questions you have with your health care provider. Document Revised: 06/17/2020 Document Reviewed: 06/17/2020 OneTouch Patient Education 2022 jellyfish. Follow Up Care 11/22/2023 16:18:30 With:Hannah Brian MD Address: [address] [place] [address]- When:11/25/2023 [facility] 10-16-2023 Miscellaneous Notes October 16, 2023 Patient Contact Number: [phone] Patient last seen within the last year: [...] Yes Gloria Mendes documented in this encounter [facility] 10-16-2023 Note [facility] 10-16-2023 History of Present illness Narrative UNIVERSAL [...] due to it helping the symptoms [facility] NOTE / UNIVERSAL PROTOCOL / [...] Time: 11:18 AM documented in this encounter [facility] 10-16-2023 Note [facility] 10-16-2023 Nurse Note Actual procedure/procedure scheduled: Yes Performing provider/scheduled provider: Yes Patient was roomed in: [facility] Business Project Analyst offered:Patient declines Patient arrived in the room [...] Education Session: None Instruction Provided To: Patient Machine Set Up Operator Present: no Discipline: Nursing Learning Topic: SURVIVAL SKILLS: Symptom Management Patient Evaluation: Verbalizes understanding: Yes Supplemental Material Given: Written Material Instructed By DAWSON Farr In Department Urology . documented in this encounter [facility] 10-05-2023 Hospital Discharge instructions Patient Education 10/05/2023 21:56:35 Constipation, Adult, Udbv-kg-Nchy Constipation, Adult Constipation is when a person [...] high in fat and sugar, such as: ?Egyptian fries. ?Hamburgers. ?Cookies. ?Candy. ?Soda. Drink enough fluid to keep your pee (urine) pale yellow. General instructions Exercise regularly or as told by your doctor. Try to do 150 minutes of exercise each week. Go to the restroom when you feel like you need to poop. Do not hold it in. Take sena-ecf-vpzxtmr and prescription medicines only as told by [...] keep your pee (urine) pale yellow. Take qbij-apo-xysidez and prescription medicines only as told by your doctor. These include any fiber supplements. This information is not intended to replace advice given to you by your health care provider. Make sure you discuss any questions you have with your health care provider. Document Revised: 06/17/2020 Document Reviewed: 06/17/2020 OneTouch Patient Education 2022 jellyfish. 10/05/2023 21:56:35 Gastroesophageal Reflux Disease, Adult, Bjam-ll-Hafh Gastroesophageal Reflux Disease, Adult Gastroesophageal reflux (ZUNILDA) [...] powder, vinegar, hot sauces, and BBQ sauce. ?Oconto fruit juices and citrus fruits, such as oranges, ronald, and limes. ?Tomato-based foods. These include red sauce, chili, salsa, and pizza with red sauce. ?Fried and fatty foods. These include donuts, algerian fries, potato chips, and high-fat dressings. ?High-fat [...] to any changes in your symptoms. Take yxko-apd-brzltvm and prescription medicines only as told by [...] provider. Document Revised: 02/08/2021 Document Reviewed: 02/08/2021 OneTouch Patient Education 2022 jellyfish. 10/05/2023 21:56:35 Abdominal Pain, Adult, Xwpw-hf-Shec Abdominal Pain, Adult Many things can cause belly (abdominal) pain. Most times, belly pain is not dangerous. Many cases of belly pain can be watched and treated at home. Sometimes, though, belly pain is serious. Your doctor will try to find the cause of your belly pain. Follow these instructions at home: Medicines Take oigv-kte-wkrcfty and prescription medicines only as told by [...] your belly pain for any changes. Take ffle-hab-nfwrigl and prescription medicines only as told by [...] provider. Document Revised: 12/09/2019 Document Reviewed: 12/09/2019 OneTouch Patient Education 2022 jellyfish. Follow Up Care 10/05/2023 17:56:41 With:Johan HENRIQUEZ Address: [address] [place] [phone] Business (1) When:10/08/2023 20:57:11 With:Peggy Nazario Address: [address] [place] [address]- Business (1) When:Within 3 Day(s) [facility] 10-05-2023 Evaluation + Plan note [...] day(s), # 28 tab(s), Refills(s) 0, Pharmacy: [facility], 165, cm, 10/05/23 18:07:00 EST, Height/Length [...] Metabolic Panel 07/12/23 * Digoxin Level 07/12/23 [facility]02-19-2024 Miscellaneous Notes* Telephone Encounter - Gloria Mendes - 10/02/2023 9:35 AM EST October 02, 2023 Patient Contact Number: [phone] Patient last seen within the last year: Yes Date of last office visit: 09/26/2023 Reason For Call: Test Results; pt requesting to go over 09/26 labs Physician: Alea Harley MD Patient was informed that non-urgent calls may be returned within the next three business days. Yes Gloria Mendes [facility] Nurse Note* Chrissy Roberts OCCA - 09/26/2023 2:28 PM EST Post Void Residual done on patient with 45 cc residual volume remaining. notified. CARISSA Ferrell [facility] [place] History of Present illness Narrative* Raphael Goldsmith MD - 09/26/2023 2:15 PM EST [facility] PELVIC [...] Medicine and Reconstructive Surgery documented [facility] Instructions* Patient Instructions* Ana Rivas APRN.CNP - [...] with labs and EKG documented in this encounter[facility] [place] History of Present illness Narrative* Ana Rivas APRN.CORPORATE COMMUNICATIONS ASSOCIATE - 09/26/2023 8:51 AM EST Images from the original note were not included. [facility] [place] [facility] Department of Cardiovascular Medicine SECTION OF CLINICAL CARDIOLOGY OUTPATIENT VISIT DATE September 26, 2023 OUTPATIENT VISIT TYPE ESTABLISHED PRIMARY CARE PHYSICIAN: Peggy Nazario MD [address] [place] [address] REFERRING PHYSICIAN: Dr. Alea Harley [address] [facility] [address] CHIEF COMPLAINT: Established Patient HISTORY OF PRESENT [...] ECG Confirmed by fellow NANCY MCMAHON, ZIGGY ([id number]) on 09/04/2023 1:50:09 PM Confirmed by MD DEJUAN, PhD, KHUSHI ([id number]) on 09/11/2023 1:23:[address] Result Conclusion CTA CHEST (GATED) W IVCON Exam End: 08/23/2023 7:47 AM (Final result) Impression: IMPRESSION: Dilated left ventricle, biatrial enlargement. Mitral valve is noncalcified. Normal caliber thoracic aorta. Medical Sales Specialist: [facility] Transcribe Date/Time: Aug 23 2023 11:20A Dictated [...] a plan of care. documented in this encounter[facility]24 Miscellaneous Notes* Telephone Encounter - Carmina Reyna RN - 09/21/2023 4:[address] Harley would like patient to come in and be seen to go over this in greater detail. Work on setting her up with an SUPERINTENDENT STEVEDORING and Dr. Harley would like to be in for the appointment. Next Monday. Carmina Reyna RN * Telephone Encounter - Gloria Mendes - 09/21/2023 3:33 PM EST September 21, 2023 Patient Contact Number: [phone] Patient last seen within the last year: [...] days. Yes Gloria Mendes documented [facility] History of Present illness Narrative* Farrukh Mcmahan MA - 09/18/2023 6:00 PM EST Images from the original note were not included. Patient: Harjit Ruiz Elif : 1950 PCP: Peggy Nazario MD Harjit [...] Flowsheet Row Patient Outreach from 09/18/2023 in [facility] My Single Point with Loida Nathan LPN Discharge Information ED or Hospital Discharge? ED Patient has been contacted within 1 week of being seen in the ED Yes Discharge Date 09/17/23 Discharge Hospital [facility] [DX: ACid reflux, Medication reaction] Discharged [...] for ER follow up. Pt seen at [facility] ER on 09/17/23 due to dizziness and shaking. Hospitalrecords were reviewed. Pt had an elevated BP. She believes the dizziness and shaking was caused by the valsartan. She had the same issues when she was on it before, was advised to cut it in half. Shestates she has been feeling better since she stopped it. Pt would like a referral to a new user experience team lead/surgeon. She states she has been told that [...] be referred to a cardiothoracic surgeon at [facility]. Discussed some risks of surgery. - Ambulatory referral to Cardiothoracic Surgery; Future Entered by _El_, acting as scribe for Dr. Lr_. Signature _Heath MCMAHON_ Date _09/18/2023_. The documentation recorded by the scribe accurately reflects the service(s) I personally performed and the decisions I made. documented in this encounterLakeland Regional [id number] Evaluation + Plan note Extracted from: Title:ED [...] Metabolic Panel 07/12/23 * Digoxin Level 07/12/23 [facility]02-04-2024 Hospital Discharge instructions Patient Education [...] medicines that you are allergic to. Take dmph-vfq-qtihvol and prescription medicines only as told by your health care provider. If you were given medicines to treat your allergic reaction, do not drive until your health care provider tells you it is safe. If you have hives or a rash: ?Use an ztjm-krz-mseuhbf antihistamine as told by your health care [...] provider. Document Revised: 01/10/2022 Document Reviewed: 01/10/2022 OneTouch Patient Education 2022 jellyfish. 09/17/2023 06:16:25 Heartburn Heartburn Heartburn is a [...] powder, vinegar, hot sauces, and barbecue sauce. ?Oconto fruit juices and citrus fruits, such as oranges, ronald, and limes. ?Tomato-based foods, such as red sauce, chili, salsa, and pizza with red sauce. ?Fried and fatty foods, such as donuts, algerian fries, potato chips, and high-fat dressings. ?High-fat [...] ask your health care provider. Medicines Take uhjx-lgd-eguvsxy and prescription medicines only as told by [...] told by your health care provider. Take macm-ake-qofzenm and prescription medicines only as told by [...] provider. Document Revised: 02/03/2021 Document Reviewed: 02/03/2021 OneTouch Patient Education 2022 jellyfish. Follow Up Care 09/17/2023 04:56:21 With:Peggy Nazario Address: [address] [place] [phone] [facility] (1) When:Within 3 Day(s) [facility]02-04-2024 Miscellaneous Notes* Telephone Encounter - [...] (valsartan) again. Carmina Mcmahan APRN.CNP [facility] SOULEYMAN[facility] Shipfitter Apprentice 09/17/2023 6:29 AM documented in this encounterS[facility]-2024 Miscellaneous Notes* Telephone Encounter - Carmina Mcmahan APRN.CNP - 09/17/2023 4:21 AM EST [facility] Center Inbound Phone Encounter DATE of SERVICE: 09/17/2023 TIME of SERVICE: 4:21 AM Status: Urgent Service/Provider: Clinical Cardiology Alea Harley MD Reason for call: Medication Issue/Question Contact information: [phone] Resolution: Reinforced education and Sent to [place] Comments: Patient calling after waking up with [...] to try. Carmina Mcmahan APRN.TALIB [facility] SOULEYMAN[facility] Shipfitter Apprentice Date of Resolution: 09/17/2023 Time of Resolution 4:21 AM documented in this encounterS[facility]-2024 Telephone encounter Note * Telephone Encounter - Rupal Lemus - 09/15/2023 1:24 PM EST Pt calls to check status of this, wants this done as quickly as possible, states that she will haveto cut pills in half to make it through the weekend and missed one last night. [facility] [id number] Miscellaneous Notes* Telephone Encounter - Rupal Lemus [...] out completely on monday documented in this encounterLakeland Regional HospitalOudyjoynka04-75-6747 Telephone encounter Note* Telephone Encounter - Candis Amaro - 09/15/2023 9:49 AM EST Pt calls to ask [facility] [id number] Telephone encounter Note* Telephone Encounter - Candiscatrachita Amaro - 09/13/2023 11:25 AM EST Pt [facility] CenterHndhwcgwbu59-98-1858 Telephone encounter Note* Telephone Encounter - Farrukh Mcmahan MA - 09/13/2023 11:06 AM EST Rx signed yesterday [facility] [id number] Telephone encounter Note* Telephone Encounter - Candis Amaro - 09/13/2023 11:01 AM EST Pt calls for refill of lorazepam is almost out will be out completely on monday [facility] [id number] Evaluation + Plan noteExtracted from: Title:ED Note [...] Metabolic Panel 07/12/23 * Digoxin Level 07/12/23 [facility]01-30-2024 Hospital Discharge instructions Patient Education [...] as meditation or yoga. General instructions Take fwqr-qry-wzifttm and prescription medicines only as told by [...] provider. Document Revised: 05/20/2022 Document Reviewed: 05/20/2022 OneTouch Patient Education 2022 jellyfish. 09/12/2023 06:47:40 Gastroesophageal Reflux Disease, Adult Gastroesophageal [...] powder, vinegar, hot sauces, and barbecue sauce. ?Oconto fruit juices and citrus fruits, such as oranges, ronald, and limes. ?Tomato-based foods, such as red sauce, chili, salsa, and pizza with red sauce. ?Fried and fatty foods, such as donuts, algerian fries, potato chips, and high-fat dressings. ?High-fat [...] to any changes in your symptoms. Take ribe-tsa-pktplhs and prescription medicines only as told by [...] you have new or worsening symptoms. Take ldye-zjl-hxpagom and prescription medicines only as told by [...] provider. Document Revised: 02/08/2021 Document Reviewed: 02/08/2021 OneTouch Patient Education 2022 jellyfish. Follow Up Care 09/12/2023 04:04:55 With:Peggy Nazario Address: [address] [place] [phone]- Business (1) When:Within 3 Day(s) [facility]01[facility]18-2024 [facility] [place] [place] [place] [facility]-30-2023 [facility] [place]24 [facility] [place]20[facility] [place]-2024 [facility] [place]-2024 [facility] [place]-2024 Note [facility]-15-2024 [facility] [place]-2024 [facility] [place]-2024 [facility] [place] 08-27-2023 [facility] [place]-2024 [facility] [place] [place] History of Past illness Narrative* Problem Noted Date Diagnosed Date Resolved Date Acute on chronic systolic co ngestive heart failure 08/26/2023 08/27/2023 documented as of this encounter (statuses as of 09/17/2023) [facility] History of Past illness Narrative* Problem Noted Date Diagnosed Date Resolved Date Acute on chronic systolic co ngestive heart failure 08/26/2023 08/27/2023 documented as of this encounter (statuses as of 09/21/2023) [address]13-2024 History of Past illness Narrative* Problem Noted Date Diagnosed Date Resolved Date Acute on chronic systolic co ngestive heart failure 08/26/2023 08/27/2023 documented as of this encounter (statuses as of 09/26/2023) [facility] History of Past illness Narrative* Problem Noted Date Diagnosed Date Resolved Date Acute on chronic systolic co ngestive heart failure 08/26/2023 08/27/2023 documented as of this encounter (statuses as of 09/26/2023) [facility] History of Past illness Narrative* Problem Noted Date Diagnosed Date Resolved Date Acute on chronic systolic co ngestive heart failure 08/26/2023 08/27/2023 documented as of this encounter (statuses as of 09/29/2023) [facility] History of Past illness Narrative* Problem Noted Date Diagnosed Date Resolved Date Acute on chronic systolic co ngestive heart failure 08/26/2023 08/27/2023 documented as of this encounter (statuses as of 10/02/2023) [facility] History of Past illness Narrative* Problem Noted Date Diagnosed Date Resolved Date Acute on chronic systolic co ngestive heart failure 08/26/2023 08/27/2023 documented as of this encounter (statuses as of 10/16/2023) [facility] History of Past illness Narrative* Problem Noted Date Diagnosed Date Resolved Date Acute on chronic systolic co ngestive heart failure 08/26/2023 08/27/2023 documented as of this encounter (statuses as of 10/17/2023) [facility] History of Past illness Narrative* Problem Noted Date Diagnosed Date Resolved Date Acute on chronic systolic co ngestive heart failure 08/26/2023 08/27/2023 documented as of this encounter (statuses as of 10/20/2023) [facility]2024 NoteHNO ID: [id number] Author: NOTE, INTERFACE, ? Service: ? Author Type: ? Type: Progress Notes Filed: 08/26/2023 02:15 Note Text: Epic Scheduled Downtime: 08/26/2023 1:00:00 AM to 08/26/2023 2:04:22 [facility]01-11-20[facility] [place] Note [facility]01-10-20[facility] [place]-20[facility] [place]-2023 NoteProcedure The risk/benefits of the procedure were [...] Education Routine Capillary Glucose POC Saline Lock [facility] Medical CenterComment on above:Result Comment: Electronically Signed By: MARTINEZ MCMHAON, Johan Ribeiro.zak\Date and Time Signed: 07/05/23 06:48 [id number] History of Present illness Narrative* Farrukh McmahanJOSUE - 08/11/2023 8:45 AM EST Harjit Asencio is a 73 y.o. female presents today to follow up on anxiety. HPI: Pt here today for follow up on anxiety. Pt states yesterday she had a panic attack. She received a bill from [facility] that made her very upset and she had a panic attack. She felt like she couldn't catchher breath the rest of the day. Pt is currently on holter monitor. Pt has instructions from [facility] that she is confused about and would [...] Chronic fatigue syndrome Discussed. documented in this encounterLakeland Regional [id number] Miscellaneous Notes* Telephone Encounter - Rebecca Fernandez - 07/24/2023 10:22 AM EST IN * Telephone Encounter - Katie Nicholson - 07/24/2023 10:08 AM EST Please register insurance Thank you! documented in this encounterScci Hospital [facility]12-11-2023 Note [id number] [facility] 07-21-2023 Evaluation + Plan noteExtracted from: Title:Procedure Note Heart & Vascular Author:LEYDA KELLER MD, Johan Patino Date:07/21/23 Ordered: benzocaine/butamben/tetracaine topical, 3 spray(s), Bahama-Top, Topical, q2min PRN Other (see comment), Routine, [...] Oxygen Therapy Saline Lock Insert Suctioning HAROON ([facility]) Vital Signs Future Appointments Appointment Date:01/24/2024 02:30:00 PM Scheduled Provider:Micheline BROOKS MD Location:[facility] Appointment Type:URO Office Visit Future Scheduled Tests Laboratory* Basic Metabolic Panel 07/12/23 * Digoxin Level 07/12/23 [facility]12-08-2023 Hospital Discharge instructions Patient Education 07/21/2023 08:44:29 CV - Post-Transesophageal Echocardiogram (Custom) [place], [place] POST-TRANSESOPHAGEAL ECHOCARDIOGRAM AFTER THE PROCEDURE: Diet: [...] appointment Seek Medical Care if: Notify your user experience team lead should you have any difficulty swallowing or coughing up blood. In the event you are unable to reach your user experience team lead, please call [facility] at [phone] and the flexographic press set up operator will assist you. Follow Up Care 07/20/2023 11:03:45 With:Johan HENRIQUEZ Address: [address] [place] [address] [phone] Business (1) When: Unknown Comments:-After your appointment with [facility]12-08-2023 NoteProcedure The risk/benefits of the [...] plan_ Assessment/Plan Ordered: benzocaine/butamben/tetracaine topical, 3 spray(s), Bahama-Top, Topical, q2min PRN Other (see comment), Routine, [...] Oxygen Therapy Saline Lock Insert Suctioning HAROON ([facility]) Vital SignsProtestant HospitalComment on above:Result Comment: Electronically Signed By: MARTINEZ MCMAHON, Johan Ribeiro.br\Date and Time Signed: 07/21/23 07:09 [id number] Evaluation + Plan note Future Appointments Appointment Date:07/21/2023 08:00:00 AM [facility]uled [facility] () Appointment Date:07/21/2023 08:00:00 AM Scheduled [facility] () Appointment Date:01/24/2024 02:30:00 PM Scheduled Provider:Micheline BROOKS MD Location:[facility] Appointment Type:URO Office Visit Future Scheduled Tests Laboratory* Basic Metabolic Panel 07/12/23 * Digoxin Level 07/12/23 Radiology* Echo Transesophageal 2D 07/21/23 [facility]11-29-2023 Evaluation + Plan note Future Scheduled Tests Laboratory* Basic Metabolic Panel 07/12/23 * Digoxin Level 07/12/23 [facility] [id number] Hospital Discharge instructions Patient Education 07/07/2023 13:04:14 [...] effectively so that it does not lead luek anxious response. Talk with your health care [...] health careprovider. Avoid caffeine, alcohol, and certain plrr-xkw-cjhuxiw cold medicines. These may make you feel worse. Ask your pharmacist which medicines to avoid. General instructions Take jccp-tuc-jrpbvkh and prescription medicines only as told by [...] Depression Association of [place] (ADAA): www.adaa.org National [place] on Mental Illness (TAYLOR): www.taylor.org Contact a [...] department or: Call your local emergency services (856 in the [place] Call a suicide crisis helpline, such as the National Suicide Prevention Lifeline at or 209 in the [place] This is open 24 hours a day in the [place] Text the Crisis Text Line at 456507 (in the [place] Summary Taking steps to [...] provider. Document Revised: 02/23/2022 Document Reviewed: 11/21/2021 OneTouch Patient Education 2022 [employer]. 07/07/2023 13:04:14 Atrial Fibrillation Atrial Fibrillation [...] electrical signals of the heart. An ambulatory pipe and test supervisor to record your heart's activity for a [...] provider. Document Revised: 01/22/2020 Document Reviewed: 01/22/2020 OneTouch Patient Education 2022 jellyfish. Follow Up Care 07/07/2023 08:56:48 With:Johan HENRIQUEZ Address: [address] [place] [address]- [phone] Business (1) When:07/10/2023 12:45:48 With:Peggy Nazario Address: [address] [place] [address]- Business (1) When:07/10/2023 12:45:46 [facility]11-24-2023 NoteAdmission and Discharge Information Admitting Physician - Noman PATTON DO Consulting Physician - Shell MCMAHON, Eb Mcmillan. [facility] Cardio, XXXX Admitting Diagnoses: Discharge Diagnoses 1. [...] of breath. She was subsequently admitted to [facility] with acute paroxysmal atrial fibrillation with rapid ventricular response?new onset, acute systolic congestive heart failure, elevated troponin, severe mitral regurgitation and tricuspid regurgitation, mild coronary artery disease. She was seen in consultation by the user experience team lead and underwent cardiac catheterization and echo cardiogram. [...] is for patient to follow-up with a user experience team lead as well as the urologist as outpatient. She may need valvular repair or replacement after follow-up with the user experience team lead and may also require HAROON as per the user experience team lead. Discharge time: 35 minutes. I spent 35 [...] 76.7 % Lymph Auto - 15.3 % [place] Auto - 7.7 % Eos Auto - 0.0 % Basophil Auto - 0.3 % Neutro Absolute - 4.7 E9/L Lymph Absolute - 0.9 E9/L [place] Absolute - 0.5 E9/L Eos Absolute - [...] - 79 mg/dL POC Device SN - [id number] POC User ID - [id number] POC Username - NIKHIL PAULSON CBC w/ [...] HDL - 43 mg/dL (more content not included)...[facility] HospitalComment on above:Result Comment: Electronically Signed By: Nahid SERRATO MD\.br\Date and Time Signed: 07/07/23 12:07 [id number] Evaluation + Plan noteExtracted from: Title:APSO Note Author:Nahid SERRATO MD Date:09/05/22 73-year-old female with history of ureteral stricture with previous dilations, anxiety disorder presented with complaints of urinary hesitancy, constipation, cough and shortness of breath and was admitted to [facility] with acute paroxysmal atrial fibrillation with [...] IV Cardizem drip. Continue on Coreg, digoxin. Cook Dinner debating on starting patient on amiodarone. Eliquis to start in 4 days after cardiac catheterization. Ordered: [facility] Hospital Care/Day Moderate 35 Minutes [id number] 2. Acute systolic congestive heart failure (I50.21: Acute systolic (congestive) heart failure) Acute systolic congestive heart failure present on admission. Seen by user experience team lead and underwent cardiac catheterization that showed mild coronary artery disease. Also shows severe mitral regurgitation and tricuspid regurgitation with ejection fraction of 30 to 35%. Continue on aspirin, Coreg, losartan and Lasix. Ordered: [facility] Hospital Care/Day Moderate 35 Minutes 04831 3. Severe mitral regurgitation (I34.0: Nonrheumatic mitral (valve) insufficiency) As seen on cardiac catheterization. Patient will follow-up with user experience team lead for HAROON and then valvular repair. Cook Dinner also considering transferring patient to or [facility]. Ordered: [facility] Hospital Care/Day Moderate 35 Minutes [id number] 4. Elevated troponin (R79.89: Other specified abnormal findings of blood chemistry) Secondary to type II non-ST segment elevation myocardial infarction from above and mild coronary artery disease.. Seen by user experience team lead and underwent cardiac catheterization that showed mild coronary artery disease. Continue on aspirin, Lipitor, and Coreg. Ordered: [facility] Hospital Care/Day Moderate 35 Minutes [id number] 5. Mild coronary artery disease (I25.10: Atherosclerotic heart disease of [place] coronary artery without angina pectoris) As seen on cardiac catheterization on 07/05/2023. Continue on Lipitor and aspirin. Ordered: [facility] Hospital Care/Day Moderate 35 Minutes 12828 6. anxiety (F41.9: Anxiety disorder, unspecified) Increase [...] deep vein thrombosis (DVT) prophylaxis (Z79.899: Other intermediate manager (current) drug therapy) SCDs. Eliquis to resume in 4 days. Disposition: Home soon today if heart rate is under good control with plans to follow-up with user experience team lead and urologist as outpatient. However if heart rate is still elevated then we will call [facility] or [facility] to see if we can transfer patient for valve repair/replacement. I discussed the diagnosis and plan of care with the patient at the bedside. Moderate level of MDM based on addressing above issues. This documentation was transcribed using voice recognition software. Several attempts were made to ensure accuracy. However inadvertent computerized gypsum block setter errors may be present. Nahid Serrato. Hospitalist. [...] to transfer the patient directly to the [facility] or [facility] given her logistic challenges with getting a [...] artery disease (I25.10: Atherosclerotic heart disease of [place] coronary artery without angina pectoris) 6. Pleural effusion (J90: Pleural effusion, not elsewhere classified) 7. Urinary hesitancy (R39.11: Hesitancy of micturition) 8. Other urethral stricture, female (N35.82: Other urethral stricture, female) 9. Urinary retention (R33.9: Retention of urine, unspecified) 10. Constipation (K59.00: Constipation, unspecified) 11. On deep vein thrombosis (DVT) prophylaxis (Z79.899: Other intermediate manager (current) drug therapy) Orders: acetaminophen, 650 mg [...] shortness of breath and was admitted to [facility] with acute paroxysmal atrial fibrillation with [...] date 07/06/23 9:00:00 EST, 07/05/23 11:13:00 EST [facility] Hospital Care/Day Moderate 35 Minutes 42637 2. Acute systolic congestive heart failure (I50.21: Acute systolic (congestive) heart failure) Acute systolic congestive heart failure present on admission. Seen by user experience team lead. She is status post cardiac catheterization that showed mild coronary artery disease. Also showed severe mitral regurgitation and tricuspid regurgitation.. Ejection fraction of 30 to 35%. Continue on aspirin, Coreg, losartan, Lasix. Ordered: [facility] Hospital Care/Day Moderate 35 Minutes 48499 3. Severe mitral regurgitation (I34.0: Nonrheumatic mitral (valve) insufficiency) Severe mitral regurgitation seen on cardiac catheterization. Follow-up with user experience team lead as outpatient for HAROON and then valvular repair. Ordered: [facility] Hospital Care/Day Moderate 35 Minutes 89794 4. Elevated troponin (R79.89: Other specified abnormal findings of blood chemistry) Secondary to type II non-ST segment elevation myocardial infarction from above and mild coronary artery disease.. Seen by user experience team lead and underwent cardiac catheterization that showed mild coronary artery disease. Continue on aspirin, Lipitor, and Coreg. Ordered: furosemide, 40 mg = 1 tab(s), Tab, Oral, Daily, Routine, Start date 07/06/23 9:00:00 EST, 07/05/23 11:13:00 EST [facility] Hospital Care/Day Moderate 35 Minutes [id number] 5. Mild coronary artery disease (I25.10: Atherosclerotic heart disease of [place] coronary artery without angina pectoris) As seen on cardiac catheterization on 07/06/2023. Continue on Lipitor and aspirin. Ordered: [facility] Hospital Care/Day Moderate 35 Minutes 74493 6. Pleural effusion (J90: Pleural effusion, not [...] deep vein thrombosis (DVT) prophylaxis (Z79.899: Other long-term (current) drug therapy) Lovenox. Disposition: Home in a.m. to follow-up with user experience team lead and urologist. I discussed the diagnosis and plan of care with the patient at the bedside. Moderate level of MDM based on addressing above issues. This documentation was transcribed using voice recognition software. Several attempts were made to ensure accuracy. However inadvertent computerized gypsum block setter errors may be present. Nahid Serrato. Hospitalist. Orders: Basic Metabolic Panel Basic Metabolic Panel Referral to [facility] Extracted from: Title:APSO Note Author:JAZMÍN MCMAHON, Mbanefo Date:09/03/22 73-year-old female with history of ureteral stricture with previous dilations, anxiety disorder presented with complaints of urinary hesitancy, constipation, cough and shortness of breath and was admitted to [facility] with acute paroxysmal atrial fibrillation with [...] BID, # 60 tab(s), Refills(s) 0, Pharmacy: [facility] #[id number], 165, cm, 07/02/23 21:30:00 EST, Height/Length Dosing, 55.7, kg, 07/02/23 21:30:00 EST, Weight Dosing Echo Transthoracic Complete [facility] Hospital Care/Day Moderate 35 Minutes 53724 2. Acute systolic congestive heart failure (I50.21: Acute systolic (congestive) heart failure) Acute systolic congestive heart failure present on admission. Cardiology is following. Ejection fraction of 30 to 35%. Cardiology is planning on cardiac catheterization for ischemic work-up in AM. Meanwhile continue on aspirin, Coreg, losartan. We will verify with user experience team lead about Lasix. [facility] Moderate 35 Minutes 60293 3. Elevated troponin (R79.89: Other specified abnormal findings of blood chemistry) Secondary to type II non-ST segment elevation myocardial infarction from above. Echocardiogram shows ejection fraction of 30 to 35%. Cook Dinner following with plans for cardiac catheterization in AM. Meanwhile continue on aspirin and Coreg. Ordered: Echo Transthoracic [facility]/Day Moderate 35 Minutes 85145 4. Pleural effusion (J90: Pleural effusion, not elsewhere classified) Small pleural effusion secondary to acute systolic congestive heart failure. Supportive care. Lasix as needed. Ordered: [facility]/Day Moderate 35 Minutes 11141 5. Urinary hesitancy (R39.11: Hesitancy of micturition) Secondary to urethral stricture and urinary retention. She is status post Robles catheter placement. Urology consult reviewed by me. I appreciate and agreed recommendations. Patient will discharge with Robles catheter and leg bag to follow-up with urologist as outpatient. Ordered: [facility] Hospital Care/Day Moderate 35 Minutes 12847 6. Other urethral stricture, female (N35.82: Other [...] Daily, NOW, Start date 07/03/23 11:16:00 EST [facility] Hospital Care/Day Moderate 35 Minutes 92476 9. On deep vein thrombosis (DVT) prophylaxis (Z79.899: Other long-term (current) drug therapy) Lovenox. Disposition: Pending cardiac catheterization in AM. I discussed the diagnosis and plan of care with the patient at the bedside. I also spoke with the patient's daughter Mandeep over the phone. Moderate level of MDM based on addressing above issues. This documentation was transcribed using voice recognition software. Several attempts were made to ensure accuracy. However inadvertent computerized gypsum block setter errors may be present. Nahid Serrato. Hospitalist. [...] deep vein thrombosis (DVT) prophylaxis (Z79.899: Other intermediate manager (current) drug therapy) Urinary retention (R33.9: Retention [...] deep vein thrombosis (DVT) prophylaxis (Z79.899: Other intermediate manager (current) drug therapy) Urinary retention (R33.9: Retention of urine, unspecified) Extracted from: Title:Urology Consult and H&P 2 Author:Cody LEO MD Date:07/03/23 Impression and Plan Diagnosis Atrial fibrillation with RVR (GNA74-ES I48.91, Discharge, Medical). Constipation (KIQ42-GI K59.00, Discharge, Medical). Other urethral stricture, female (MDA54-RW N35.82, Discharge, Medical). Urinary retention (IFR60-EA R33.9, Working, Medical). Course: Worsening, Overall this [...] consultation.. Extracted from: Title:APSO Note Author:JAZMÍN MCMAHON, Nahid Date:09/02/22 73-year-old female with history of urethral [...] I ordered echocardiogram. Ordered: Echo Transthoracic Complete [facility] Hospital Care/Day Moderate 35 Minutes 44820 2. Elevated troponin (R79.89: Other specified abnormal findings of blood chemistry) Secondary to type II non-ST segment elevation myocardial infarction from above. Echocardiogram ordered. Cardiology consult pending. Continue on aspirin. Ordered: Echo Transthoracic Complete [facility] Hospital Care/Day Moderate 35 Minutes 53230 3. Urinary hesitancy (R39.11: Hesitancy of micturition) Secondary to urethral stricture. Patient is status post Robles catheter placement for urinary retention. She will follow-up with urologist as outpatient. Ordered: [facility] Hospital Care/Day Moderate 35 Minutes 13241 4. Constipation (K59.00: Constipation, unspecified) Started patient on MiraLAX and lactulose. Ordered: lactulose, 20 gram = 30 mL, Syrup, Oral, Once, Stop date 07/03/23 12:00:00 EST, Routine, Start date 07/03/23 12:00:00 EST, 07/03/23 12:00:00 EST polyethylene glycol 3350, 17 gram = 1 EA, Powder-Recon, Oral, Daily, Routine, Start date 07/03/23 12:00:00 EST, 07/03/23 12:00:00 EST [facility] Hospital Care/Day Moderate 35 Minutes 56596 5. Other urethral stricture, female (N35.82: Other urethral stricture, female) Resulting in urinary retention. Patient is status post Robles catheter during this admission. Gets dilation of the ureter every 6 months. Urology consult pending. 6. On deep vein thrombosis (DVT) prophylaxis (Z79.899: Other intermediate manager (current) drug therapy) Lovenox. Disposition: Pending echocardiogram, cardiology and urology consult. I discussed the diagnosis and plan of care with the patient at the bedside. Moderate level of MDM based on addressing above issues. This documentation was transcribed using voice recognition software. Several attempts were made to ensure accuracy. However inadvertent computerized gypsum block setter errors may be present. Nahid Serrato. Hospitalist. Orders: Cardiac Diet Extracted from: Title:Admission H & P Author:ABDI LINDSEY Albertponcho Morgan Date:07/03/23 1. Atrial fibrillation with RVR, (I48.91: [...] deep vein thrombosis (DVT) prophylaxis (Z79.899: Other intermediate manager (current) drug therapy) SCD, enoxaparin Orders: acetaminophen, [...] Metabolic Panel 07/12/23 * Digoxin Level 07/12/23 [facility]11-22-2023 NoteCRM entered the room to [...] transport. Plan now to stay, per Dr KahnProtestant HospitalComment on above:Result Comment: Electronically Signed By: Margaret Grimm\.br\Date and Time Signed: 07/05/23 15:06 [id number] Evaluation + Plan noteExtracted from: Title:Procedure Note Heart & Vascular Author:LEYDA KELLER MD, Johan aPtino Date:07/05/23 Ordered: aspirin, 81 mg = 1 [...] Metabolic Panel 07/12/23 * Digoxin Level 07/12/23 [facility]11-22-2023 Hospital Discharge instructions Patient Education 07/05/2023 09:04:47 CV - Cardiovascular Discharge Instructions (Custom) [place], [place] CARDIOVASCULAR DISCHARGE INSTRUCTIONS Diet: Resume pre-procedure [...] hours post procedure: Actoplus MetGlucophageGlucophage XR GlucovanceAvandametFortamet Wea-xmugywmjsWuzmgiOotx-puulrjeea GlumetzaJanumetMetaglip RiometGlycomet *Minimal pain, soreness and/or discomfort [...] you are interested in smoking cessation, contact [facility] at [phone], ext. [phone]. In the event you are unable to reach your physician, please call [facility] at [phone] and the flexographic press set up operator will assist you. Seek Immediate Medical Care for: Bleeding: Apply continuous pressure to the site and Call 911. Should the arm or leg become cold, numb, blue or white call your physician immediately. Signs of infection are redness, warmth, swelling, increased tenderness, colored drainage, fever or chills Chest pain Follow Up Care 07/02/2023 21:18:33 With:Johan HENRIQUEZ Address: [address] [place] [address]- [phone] Business (1) When:2 weeks Comments:Call for followup appointment With:Peggy Nazario Address: [address] [place] [phone] Business (1) When:07/10/2023 13:00:00 With:Michleine BROOKS Address: [facility] [address] [place] [address] Business (1) When: Unknown Comments:Call for followup appointment re: the indwelling Robles catheter. [facility]11-21-2023 NoteCRM entered the room to discuss dc planning. PCP, DME and insurance discussed. Patient is alert andinvolved in plan of care. Contact information provided and whiteboard updated. [facility] pt will be dc'd on Eliquis. CRM will pablo check and apply coupon if needed. Lucila Humphreys. ANt dc today. Pt will transport self home.[facility] HospitalComment on above:Result Comment: Electronically Signed By: Margaret Grimm\Date and Time Signed: 07/04/23 10:49 [id number] NoteChief Complaint I cannot urinate Reason for [...] deep vein thrombosis (DVT) prophylaxis (Z79.899: Other long-term (current) drug therapy) Urinary retention (R33.9: Retention [...] tab(s), Oral, Daily Ativa (more content not included)...[facility] HospitalComment on above: Result Comment: Electronically Signed By: Shell MCMAHON, Eb Yeh\.br\Date and Time Signed: 07/03/23 21:35 [id number] NoteEchocardiology Procedure Exam Date/Time Accession # Ordering Echo Transthoracic 07/03/2023 13:36 EST [id number] Nahid SERRATO MD Complete CPT code 75395 70892 Reason for Exam (Echo Transthoracic Complete) Congestive Heart Failure Report Version: 1 Study ID: [id number] [facility] [address] [place] [address] Adult Echocardiogram Report Name: HARJIT ASENCIO I Study Date: 07/03/2023, 1: 00 PM Patient Location: [address] [place] [address] : 1950 (MM/DD/YYYY) Gender: Female Age: 73 [...] by: Eb Goff MD Transcribed by: [facility] Technologist: [facility]11-20-2023 Note Chief Complaint Pt presents to [...] 13.5 % (07/02/23 22:10:00) Platelet: 183 E9/L (07/02/23:10:00) MPV: 9.1 fL (07/02/23 22:10:00) Neutro Auto: 76.7 % High (07/02/23 22:10:00) Lymph Auto: 15.3 % (07/02/23 22:10:00) [place] Auto: 7.7 % (07/02/23 22:10:00) Eos Auto: 0 % (07/02/23 22:10:00) Basophil Auto: 0.3 % (07/02/23 22:10:00) Neutro Absolute: 4.7 E9/L (07/02/23 22:10:00) Lymph Absolute: 0.9 E9/L Low (07/02/23 22:10:00) [place] Absolute: 0.5 E9/L (07/02/23 22:10:00) Eos Absolute: 0 E9/L (07/02/23 22:10:00) Basophil Absolute: 0 E9/L (07/02/23 22:10:00) PT: 13.2 second(s) High (07/02/23 22:10:00) INR: 1.2 (07/02/23 22:10:00) PTT: 30.2 second(s) (07/02/23 22:10:00) Glucose Lvl: 129 mg/dL (07/02/23 22:10:00) BUN: 13 mg/dL (07/02/23 22:10:00) Creatinine: 1 mg/dL (07/02/23 22:10:00) eGFR: 59 mL/min/1.73 m2 (07/02/23 22:10:00) BUN/Creat Ratio: 13 (07/02/23 22:10:00) Sodium Lvl: 133 mmol/L Low (07/02/23 22:10:00) Potassium Lvl: 3.8 mmol/L (07/02/23 22:10:00) Chloride: 100 mmol/L Low (07/02/23:10:00) CO2: 24 mmol/L (07/02/23:10:00) AGAP: 13 mEq/L (07/02/23 22:10:00) Calcium Lvl: [...] Trace2 Abnormal (07/02/23 22: (more content not included)...[facility] HospitalComment on above:Result Comment: Electronically Signed By: Noman PATTON DO.zak\Date and Time Signed: 07/03/23 02:59 [id number] Hospital Discharge instructions Patient Education 07/01/2023 00:37:46 Abdominal Pain, Adult, Nhua-cn-Zobb Abdominal Pain, Adult Many things can cause belly (abdominal) pain. Most times, belly pain is not dangerous. Many cases of belly pain can be watched and treated at home. Sometimes, though, belly pain is serious. Your doctor will try to find the cause of your belly pain. Follow these instructions at home: Medicines Take imil-ewj-xludgds and prescription medicines only as told by [...] your belly pain for any changes. Take kqif-fdj-mpmlcoh and prescription medicines only as told by [...] provider. Document Revised: 12/09/2019 Document Reviewed: 12/09/2019 OneTouch Patient Education 2022 jellyfish. Follow Up Care 06/30/2023 18:51:38 With:Peggy Nazario Address: [address] [place] [phone] Business (1) When:07/04/2023 Comments:You can use the Bentyl, Zofran every 6 hours as needed for pain and nausea. Please follow-up with your primary care doctor next 2 to 3 days for further evaluation management. Please return to the ED for any new or worsening symptoms. [facility]11-17-2023 Evaluation + Plan noteExtracted from: Title:ED Note Author:Koby Masterson DO Date :06/30/23 Abdominal pain, acute (R10.9 : Unspecified abdominal pain) Orders: dicyclomine, 20 mg = 2 mL, Injection, IntraMuscular, Once, Stop date 06/30/23 20:58:00 EST, STAT, Start date 06/30/23 20:58:00 EST, 06/30/23 20:58:00 EST dicyclomine, 10 mg = 1 cap(s), Oral, QID, X 7 day(s), # 14 cap(s), Refills(s) 0, Pharmacy: [facility] #[id number], 165, cm, 06/30/23 19:37:00 EST, Height/Length Dosing, [...] q8hr, # 12 tab(s), Refills(s) 0, Pharmacy: [facility] #[id number], 165, cm, 06/30/23 19:37:00 EST, Height/Length Dosing, 55.7, kg, 06/30/23 19:37:00 EST, Weight Dosing Automated Diff Basic Metabolic Panel CBC w/ Auto Diff CT Abdomen/Pelvis w/o Contrast eGFR Extra Blue Tube Hepatic Function Panel Lipase Level UA With Cult Reflex Future Appointments Appointment Date:11/22/2023 01:00:00 PM Scheduled Provider:Micheline BROOKS MD Location:[facility] Appointment Type:URO Office Visit [facility]09-13-2023 Hospital Discharge instructions Patient Education [...] symptoms are. Treatment may include: Using an xckr-jgd-kyeredo vaginal lubricant before sex. Using a long-acting [...] Follow these instructions at home: Medicines Take ojcp-hjv-pqxglkr and prescription medicines only as told by your health care provider. Do not use herbal or alternative medicines unless your health care provider says that you can. Use meub-wjn-kcjoitp creams, lubricants, or moisturizers for dryness only [...] provider. Document Revised: 01/28/2021 Document Reviewed: 01/28/2021 OneTouch Patient Education 2022 jellyfish. Follow Up Care 10/25/2022 10:34:06 With:CECILIA MCMAHON, Micheline Morgan, URL Address: [facility] [address] [place] [address]- When: Unknown [facility] 08-22-2023 Hospital Discharge instructions Patient Education 04/04/2023 [...] Follow these instructions at home: Medicines Take glak-oco-sgfviir and prescription medicines only as told by [...] Watch your condition for any changes. Take dzmn-bxj-ospkion and prescription medicines only as told by [...] provider. Document Revised: 09/18/2020 Document Reviewed: 12/09/2019 OneTouch Patient Education 2022 jellyfish. Follow Up Care 04/04/2023 13:51:29 With:Peggy Nazario Address: [address] [place] [phone] Business (1) When:04/07/2023 16:25:09 Comments:Call the office [...] you develop any new or worsening symptoms. [facility]06-18-2023 Hospital Discharge instructions Patient Education 01/28/2023 23:28:19 RICE Therapy for Routine Care of Injuries, Owgb-kq-Yccx RICE Therapy for Routine Care of Injuries [...] provider. Document Revised: 05/20/2021 Document Reviewed: 05/20/2021 OneTouch Patient Education 2022 jellyfish. 01/28/2023 23:28:19 Hand Contusion Hand Contusion A [...] An elastic wrap to support your hand. Ifxx-spi-eiqzbvi medicines to control pain. Follow these instructions [...] sitting or lying down. General instructions Take kvst-xso-kfrplzz and prescription medicines only as told by [...] provider. Document Revised: 11/18/2021 Document Reviewed: 11/18/2021 ElseDocument Agility Patient Education 2022 jellyfish. Follow Up Care 01/28/2023 21:23:51 With:Peggy Nazario Address: [email or web address] [address] [facility] (1) When:01/31/2023 Comments:Follow-up with your primary care provider in 3 to 5 days. If symptoms worsen, do not improve, or new symptoms arise please report back to emergency department for further evaluation. [facility]06-17-2023 Evaluation + Plan noteExtracted from: Title:ED Note Author:Med Medeiros PA-C te:01/28/23 Contusion of left hand (S60. 222A: Contusion of left hand, initial encounter) Orders: XR Hand 3+ Views Left Future Appointments Appointment Date:04/26/2023 03:15:00 PM Scheduled Provider:Micheline BROOKS MD Location:[facility] Appointment Type:URO Office Visit [facility]03-14-2023 Hospital Discharge instructions Patient Education [...] [facility] [address] [place] [address]- Business (1) When:04/27/2023 10:27:19 [facility]07-21-2022 Hospital Discharge instructions Patient Education [...] reconstructed. Follow these instructions at home: Take fxva-usi-vlcpoza and prescription medicines only as told by [...] 08/26/2016 Document Revised: 03/13/2019 Document Reviewed: 03/13/2019 OneTouch Patient Education 2019 jellyfish. Follow Up Care 02/28/2022 09:40:23 With:CARMINA GARRISON PA-C, URL Address: [address] [place] [address] When: Unknown [facility] Shira 07-05-2022 Hospital Discharge instructions Patient Education 02/15/2022 14:03:18 Contusion, Qjwb-yv-Qysj Contusion A contusion is a deep bruise. [...] sitting or lying down. General instructions Take uags-say-miciexx and prescription medicines only as told by [...] is also called RICE. Youmay be given ovjc-hdb-cdaxxcp medicines for pain. Contact a doctor if [...] 01/16/2009 Document Revised: 03/22/2019 Document Reviewed: 03/22/2019 OneTouch Patient Education 2020 jellyfish. 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 Contact a doctor if: Your symptoms do [...] 07/31/2006 Document Revised: 11/20/2019 Document Reviewed: 10/06/2017 OneTouch Patient Education 2020 jellyfish. Follow Up Care 12/24/2021 17:34:06 With:Krysta Church Address: [address] [place] [address], [address] [place] [phone] Business (1) When:12/27/2021 18:21:21 With:Peggy Nazario Address: [address] [place] [address]- Business (1) When:Within 3 Day(s) [facility] Future Appointments Appointment Date:03/02/2022 02:00:00 PM Scheduled Provider:Micheline BROOKS MD Location:[facility] Appointment Type:URO Office Visit Future Scheduled Tests Laboratory* COVID-19 ([facility]) 08/12/21 [facility] Future Appointments Appointment Date:02/28/2022 09:30:00 AM Scheduled Provider:[facility] Type:V[facility] New Patient (FT) Appointment Date:03/02/2022 02:00:00 PM Scheduled Provider:Micheline BROOKS MD Location:[facility] Appointment Type:URO Office Visit Future Scheduled Tests Laboratory* COVID-19 ([facility]) 08/12/21 [facility] Future Appointments Appointment Date:04/04/2022 10:00:00 AM Scheduled Provider:Yennifer Iraheta MD [facility] Appointment Type:Vascular New Patient (FT) Future Scheduled Tests Laboratory* COVID-19 ([facility]) 08/12/21 [facility] [place] Evaluation + Plan note Future Appointments Appointment Date:07/25/2022 09:15:00 AM Scheduled Provider:Yennifer Iraheta [facility] Type:Vascular Follow Up (FT) Appointment Date:09/26/2022 02:45:00 PM Scheduled Provider:[facility]O Office Visit Future Scheduled Tests [facility]* [facility] 08/12/21 Radiology* US LE Venous Duplex Insufficiency Bilat 06/14/22 [facility] Future Appointments Appointment Date:07/25/2022 09:15:00 AM Scheduled Provider:Yennifer Iraheta MD [facility] Type:Vascular Follow Up (FT) Appointment Date:09/26/2022 02:45:00 PM Scheduled Provider:Micheline BROOKS [facility] Type:[facility]O Office Visit Future Scheduled Tests Laboratory* COVID-19 ([facility]) 08/12/21 [facility] Future Appointments Appointment Date:09/26/2022 02:45:00 PM Scheduled Provider:Micheline BROOKS [facility] Future Appointments Appointment Date:12/05/2022 03:00:00 PM Scheduled Provider: [facility] Type:MA Screen (FT) Appointment Date:04/26/2023 03:15:00 PM Scheduled Provider:Micheline BROOKS MD Location:[facility] Appointment Type:URO Office Visit Future Scheduled Tests Radiology* MA Mamm Screen w/CAD if perf and 3D Dawson 12/05/22 [facility] Future Appointments Appointment Date:04/26/2023 03:15:00 PM Scheduled Provider:Micheline BROOKS MD Location:[facility] Shira Appointment Type:URO [facility] Future Appointments Appointment Date:07/19/2023 03:00:00 PM Scheduled Provider:Micheline BROOKS MD Location:[facility] WILL Silva Appointment Type:URO Office Visit Appointment Date:07/20/2023 10:30:00 AM Scheduled Provider:Johan HENRIQUEZ MD [facility] Type:Cardiology Inpatient Follow Up (FT) Appointment Date:11/22/2023 01:00:00 PM Scheduled Provider:Micheline BROOKS MD Location:[facility] Shira Appointment Type:URO Office Visit Future Scheduled Tests Laboratory* Basic Metabolic Panel 07/12/23 * Digoxin Level [facility]12[facility]23 [facility] Future Appointments Appointment Date:01/24/2024 02:30:00 PM Scheduled Provider:Micheline BROOKS MD Location:[facility] Shira Appointment Type:URO Office Visit Future Scheduled Tests Laboratory* Basic Metabolic Panel 07/12/23 * Digoxin Level 07/12/23 [facility] Future Appointments Appointment Date:01/24/2024 02:30:00 PM Scheduled Provider:Micheline BROOKS MD Location:[facility] Appointment Type:URO Office Visit Diagnostic Tests Pending * Urine Culture 11/22/23 Future Scheduled Tests Laboratory* Basic Metabolic Panel 07/12/23 * Digoxin Level 07/12/23 [facility] [place] [facility]* Diagnosis Anxiety Anxiety state, unspecified documented in this encounter [facility] HealthcareEvaluation note* Diagnosis Gastroesophageal reflux disease without esophagitis Esophageal reflux documented in this encounter [facility] Healthcare[facility] note* Diagnosis Non-rheumatic mitral regurgitation- Primary Mitral valve disorders Chronic HFrEF (heart failure with reduced ejection fraction) (HCC) Nonrheumatic tricuspid valve regurgitation Tricuspid valve disorders, specified as nonrheumatic Non-ischemic cardiomyopathy (HCC) Other primary cardiomyopathies Persistent atrial fibrillation (HCC) Atrial fibrillation 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 Long-term (current) use of 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s History of cardioversion Personal history of surgery to heart and great vessels, presenting hazards to health Primary hypertension Unspecified essential hypertension [facility] Diagnosis Mitral valve insufficiency, unspecified etiology- Primary Anxiety Anxiety state, unspecified Paroxysmal atrial fibrillation (CMS/HCC) Atrial fibrillation Other cardiomyopathy (CMS/HCC) Hospital discharge follow-up Other follow-up examination Other thrombophilia (D68.69) Atherosclerosis of aorta (I70.0) Atherosclerosis of aorta documented in this encounter [facility] Healthcare[facility] note* Diagnosis Feeling of incomplete bladder emptying- Primary Incomplete bladder emptying Stricture of female urethra, unspecified stricture type Severe protein-calorie malnutrition (HCC) Other severe protein-calorie malnutrition [facility] [place] [facility]* Diagnosis Screening for genitourinary condition Screening for other and unspecified genitourinary condition [facility] [place] [facility]* Diagnosis Feeling of incomplete bladder emptying- Primary Incomplete bladder emptying Stricture of female urethra, unspecified stricture type Severe protein-calorie malnutrition (HCC) Other severe protein-calorie malnutrition [facility] [place] [facility]* Diagnosis Mitral valve regurgitation due to cardiomyopathy ([facility])- Primary [facility] [place] [facility]* Diagnosis Non-rheumatic mitral regurgitation Mitral valve disorders Persistent atrial fibrillation (HCC) Atrial fibrillation Non-ischemic cardiomyopathy (HCC) Other primary cardiomyopathies Chronic HFrEF (heart failure with reduced ejection fraction) ([facility]) [facility] [place] [facility]* Diagnosis Stricture of female urethra, unspecified stricture type- Primary Feeling of incomplete bladder emptying Incomplete bladder emptying [facility]* Diagnosis Screening for genitourinary condition Screening for other and unspecified genitourinary condition [facility]* Diagnosis Feeling of incomplete bladder emptying- Primary Incomplete bladder emptying Stricture of female urethra, unspecified stricture type [facility]* Diagnosis Dysuria documented in this encounter [facility] HealthcareEvaluation note* Diagnosis Anxiety Anxiety state, unspecified documented in this encounter [facility] HealthcareEvaluation note* Diagnosis Postmenopausal atrophic vaginitis Breast cancer screening by mammogram documented in this encounter [facility] HealthcareEvaluation note* Diagnosis Dysuria- Primary Urinary frequency Atrial fibrillation, persistent (HCC) ([facility]) 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 BMI 22.0-22.9, adult documented in this encounter [facility] HealthcareEvaluation note* Diagnosis Anxiety Anxiety state, unspecified documented in this encounter [facility] HealthcareEvaluation note* Diagnosis Primary hypertension (CMS/HCC)- Primary [...] Primary Hematuria, unspecified type 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 Atrial fibrillation, persistent [...] cough- Primary Bruising Contusion of unspecified site detention 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 Atrial fibrillation, persistent [...] agoraphobia Atrial fibrillation, persistent (HCC) (CMS/HCC)- Primary detention 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 Primary hypertension (CMS/HCC) [...] agoraphobia Atrial fibrillation, persistent (HCC) (CMS/HCC)- Primary 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 Mitral valve regurgitation [...] with heart failure Atrial fibrillation, persistent (HCC) detention 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 Anxiety Anxiety state, unspecified documented in this encounter [facility] note* Diagnosis Primary hypertension- Primary Unspecified essential hypertension Atrial fibrillation, persistent (HCC) Atherosclerosis of aorta Panic attack Panic disorder without agoraphobia Hematuria, unspecified type- Primary Painful urination Dysuria C. difficile diarrhea Intestinal infection due to clostridium difficile Mitral valve regurgitation due to cardiomyopathy (HCC) Atrial fibrillation, persistent (HCC) 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 documented in this encounter [facility] note* Diagnosis Primary hypertension- Primary Unspecified essential hypertension Atrial fibrillation, persistent (HCC) Atherosclerosis of aorta Panic attack Panic disorder without agoraphobia Bee sting, accidental or unintentional, initial encounter- Primary Gastroesophageal reflux disease without esophagitis Esophageal reflux Ear fullness, right Fluid level behind tympanic membrane of right ear documented in this encounter [facility] HealthcareHospital course Narrative No data available for this section [facility] Discharge instructions No data available for this section [facility] No data available for this section [facility] for referral (narrative) , Mitral Valve and Tricuspid Valve Repair. Referred by: MARTINEZ MCMAHON, Johan Patino [facility] for referral (narrative)* Outpatient Procedure (Routine) - Authorized Specialty Diagnoses / Procedures Referred By Marietta aguiar Referred To Contact [facility] Diagnoses Non-rheumatic mitral regurgitation Persistent atrial fibrillation (HCC) Non-ischemic cardiomyopathy (HCC) Chronic HFrEF (heart failure with reduced ejection fraction) ([facility]) Procedures ECG COMPLETE ECG ROUTINE ECG W/LEAST 12 LDS W/I&R Ana Rivas, RADIOACTIVITY TECHNICIAN.CORPORATE COMMUNICATIONS ASSOCIATE [address] [place] [address] [facility] [address] [place] [address] Referral ID Status Reason Start Date Expiration Date Visits Requested Visits Authorized [id number] Authorized Auto-Generat ed Referral 11/08/2023 09/25/2024 1 1 * Transition of Care (Routine) - Ref Not Required Specialty Diagnoses / Procedures Referred By Contac t Referred To Contact Diagnoses Non-rheumatic mitral regurgitation Persistent atrial fibrillation (HCC) Non-ischemic cardiomyopathy (HCC) Chronic HFrEF (heart failure with reduced ejection fraction) (HCC) Procedures CARDIOVASCULAR MEDICINE OP FOLLOW UP APPT ORDER Ana Rivas APRN.CNP [address] [place] [address] Referral ID Status Reason Start Date Expiration Date Visits Requested Visits Authorized [id number] Ref Not Required PCP Requested Referral 09/26/2023 09/25/2024 1 1 * Outpatient Procedure (Routine) - Authorized Specialty Diagnoses / Procedures Referred By Contac t Referred To Contact [facility] Diagnoses Non-rheumatic mitral regurgitation Persistent atrial fibrillation (HCC) Non-ischemic cardiomyopathy (HCC) Chronic HFrEF (heart failure with reduced ejection fraction) (HCC) Procedures ECG COMPLETE ECG ROUTINE ECG W/LEAST 12 LDS W/I&R Ana Rivas APRN.CORPORATE COMMUNICATIONS ASSOCIATE [address] [place] [address] [facility] [address] [place] [address] Referral ID Status Reason Start Date Expiration Date Visits Requested Visits Authorized [id number] Authorized Auto-Generat ed Referral 10/25/2023 09/25/2024 1 1 * Transition of Care (Routine) - Ref Not Required Specialty Diagnoses / Procedures Referred By Contac t Referred To Contact Diagnoses Non-rheumatic mitral regurgitation Persistent atrial fibrillation (HCC) Non-ischemic cardiomyopathy (HCC) Chronic HFrEF (heart failure with reduced ejection fraction) (HCC) Procedures CARDIOVASCULAR MEDICINE OP FOLLOW UP APPT ORDER Ana Rivas APRN.CNP [address] [place] [address] Referral ID Status Reason Start Date Expiration Date Visits Requested Visits Authorized [id number] Ref Not Required PCP Requested Referral 09/26/2023 [...] W/LEAST 12 LDS W/I&R Ana Rivas APRN.CNP [address] [place] [id number] [facility] [address] [place] [id number] Referral ID Status Reason Start Date Expiration Date Visits Requested Visits Authorized [id number] Authorized Auto-Generat ed Referral 10/10/2023 09/25/2024 1 1 * Transition of Care (Routine) - Ref Not Required Specialty Diagnoses / Procedures Referred By Marietta t Referred To Contact Diagnoses Non-rheumatic mitral regurgitation Persistent atrial fibrillation (HCC) Non-ischemic cardiomyopathy (HCC) Chronic HFrEF (heart failure with reduced ejection fraction) (HCC) Procedures CARDIOVASCULAR MEDICINE OP FOLLOW UP APPT ORDER Ana Rivas APRN.CORPORATE COMMUNICATIONS ASSOCIATE [address] [place] [address] Referral ID Status Reason Start Date Expiration Date Visits Requested Visits Authorized [id number] Ref Not Required PCP Requested Referral 09/26/2023 09/25/2024 1 1 [facility] for referral (narrative)* Consultation (Routine) - Pending Review Specialty Diagnoses / Procedures Referred By Contac t Referred To Contact Cardiothoracic Surgery Diagnoses Mitral valve insufficiency, unspecified etiology Procedures DE OFFICE/OUTPATIENT NEW HIGH MDM 60 MINUTES Peggy Nazario MD [address] [place] [address] Referral ID Status Reason Start Date Expiration Date Visits Requested Visits Authorized [id number] Pending Review Specialty Services Required 09/18/2023 03/16/2024 [...] section and content) DATE CREATED AUTHOR 08/23/2021 [facility] dical Specialist DATE CREATED AUTHOR AUTHOR'S ORGANIZ ATION 06/05/2024 [facility] DATE CREATED AUTHOR AUTHOR'S ORGANIZ ATION 06/29/2024 [facility] [place] DATE CREATED AUTHOR AUTHOR'S ORGANIZ ATION 11/22/2024 [facility] DATE CREATED AUTHOR AUTHOR'S ORGANIZ ATION 04/21/2025 [facility] DATE CREATED AUTHOR AUTHOR'S ORGANIZ ATION 04/25/2025 [facility] DATE CREATED AUTHOR AUTHOR'S ORGANIZ ATION 04/26/2025 [facility] DATE CREATED AUTHOR AUTHOR'S ORGANIZ ATION 04/29/2025 [facility] DATE CREATED AUTHOR AUTHOR'S ORGANIZ ATION 05/02/2025 [facility] DATE CREATED AUTHOR AUTHOR'S ORGANIZ ATION 05/03/2025 [facility] DATE CREATED AUTHOR AUTHOR'S ORGANIZ ATION 05/15/2025 [facility] dical Specialists [facility] DATE CREATED AUTHOR AUTHOR'S ORGANIZ ATION 06/01/2025 [facility] Care Team (unrecognized sect ion and content) Wax Pattern Coater Relationship Specialty Start Date End Date Peggy Nazario [address] [place] [place] [address] PCP - General Family Medicine 07/24/23 Micheline Sorto MD [address] [facility] [place] [place] [address] Surgeon Cardiac Surg 07/24/23 Johan Henriquez MD [address] [facility] [place] [address] [facility] Cardiology 07/24/23 Wax Pattern Coater Relationship Specialty Start Date End Date Peggy Nazario MD [address] [place] [address] PCP - ACO Reach 01/05/23 Peggy Nazario MD [address] [place] [address] PCP - General Family Medicine 02/08/23 Wax Pattern Coater Relationship Specialty Start Date End Date Peggy Nazario MD [address] [place] [address] PCP - ACO Reach 01/05/23 Peggy Nazario MD [address] [place] [address] PCP - General Family Medicine 02/08/23 Wax Pattern Coater Relationship Specialty Start Date End Date Peggy Nazario [address] [place] [address] PCP - General Family Medicine 07/24/23 Micheline Sorto MD [address] [place] [address] Surgeon Cardiac Surg 07/24/23 Johan Henriquez MD [facility] [address] [place] [address] [facility] Cardiology 07/24/23 Alea Harley MD [address] [place] [address] Cardiology 07/28/23 Alea Harley MD [address] [place] [address] Primary Staff Physician Cardiology 08/23/23 Wax Pattern Coater Relationship Specialty Start Date End Date Peggy Nazario [address] [place] [address] PCP - General Family Medicine 07/24/23 Micheline Sorto MD [address] [place] [address] Surgeon Cardiac Surg 07/24/23 Johan Henriquez MD [address] [place] [address] [facility] Cardiology 07/24/23 Alea Harley MD [address] [place] [address] Cardiology 07/28/23 Alea Harley MD [address] [place] [address] Primary Staff Physician Cardiology 08/23/23 Wax Pattern Coater Relationship Specialty Start Date End Date Peggy Nazario [address] [place] [place] [address] PCP - General Family Medicine 07/24/23 Micheline Sorto MD [address] [place] [address] Surgeon Cardiac Surg 07/24/23 Johan Henriquez MD [address] [place] [address] [facility] Dinner Cardiology 07/24/23 Alea Harley MD [address] [place] [address] Cardiology 07/28/23 Alea Harley MD [address] [place] [address] Primary Staff Physician Cardiology 08/23/23 Wax Pattern Coater Relationship Specialty Start Date End Date Peggy Nazario MD [address] [place] [address] PCP - ACO Reach 01/05/23 Peggy Nazario MD [address] [place] [address] PCP - General Family Medicine 02/08/23 Wax Pattern Coater Relationship Specialty Start Date End Date Peggy Nazario [address] [place] [address] PCP - General Family Medicine 07/24/23 Micheline Sorto MD [address] [id number] Surgeon Cardiac Surg 07/24/23 Johan Henriquez MD [facility] [address] [place] [id number] [facility]inner Cardiology 07/24/23 Alea Harley MD [address] [place] [address] Cardiology 07/28/23 Alea Harley MD [address] [place] [address] Primary Staff Physician Cardiology 08/23/23 Wax Pattern Coater Relationship Specialty Start Date End Date Peggy Nazario MD [address] [place] [address] PCP - ACO Reach 01/05/23 Peggy Nazario MD [address] [place] [address] PCP - General Family Medicine 02/08/23 Wax Pattern Coater Relationship Specialty Start Date End Date Peggy Nazario [address] [place] [address] PCP - General Family Medicine 07/24/23 Micheline Sorto MD [address] [place] [address] Surgeon Cardiac Surg 07/24/23 Johan Henriquez MD [address] [place] [address] [facility] Dinner Cardiology 07/24/23 Alea Harley MD [address] [place] [address] Cardiology 07/28/23 Alea Harley MD [address] [place] [address] Primary Staff Physician Cardiology 08/23/23 Wax Pattern Coater Relationship Specialty Start Date End Date Peggy Nazario [address] [place] [address] PCP - General Family Medicine 07/24/23 Micheline Sorto MD [address] [place] [address] Surgeon Cardiac Surg 07/24/23 Johan Henriquez MD [address] [place] [address] Cook Dinner Cardiology 07/24/23 Alea Harley MD [address] [place] [address] Cardiology 07/28/23 Alea Harley MD [address] [place] [address] Primary Staff Physician Cardiology 08/23/23 Wax Pattern Coater Relationship Specialty Start Date End Date Peggy Nazario [address] [place] [address] PCP - General Family Medicine 07/24/23 Micheline Sorto MD [address] [place] [address] Surgeon Cardiac Surg 07/24/23 Johan Henriquez MD [address] [facility] [place] [address] Cook Dinner Cardiology 07/24/23 Alea Harley MD [address] [place] [address] Cardiology 07/28/23 Alea Harley MD [address] [place] [address] Primary Staff Physician Cardiology 08/23/23 Wax Pattern Coater Relationship Specialty Start Date End Date Peggy Nazario [address] [place] [address] PCP - General Family Medicine 07/24/23 Micheline Sorto MD [address] [place] [address] Surgeon Cardiac Surg 07/24/23 Johan Henriquez MD [address] [place] [address] Cook Dinner Cardiology 07/24/23 Alea Harley MD [address] [place] [address] Cardiology 07/28/23 Alea Harley MD [address] [place] [address] Primary Staff Physician Cardiology 08/23/23 Wax Pattern Coater Relationship Specialty Start Date End Date Peggy Nazario [address] [place] [place] [address] PCP - General Family Medicine 07/24/23 Micheline Sorto MD [address] [place] [address] Surgeon Cardiac Surg 07/24/23 Johan Henriquez MD [address] [place], [place] [address] [place] [id number] Cook Dinner Cardiology 07/24/23 Alea Harley MD [address] [place] [address] Cardiology 07/28/23 Alea Harley MD [address] [place] [address] Primary Staff Physician Cardiology 08/23/23 Wax Pattern Coater Relationship Specialty Start Date End Date Peggy Nazario [address] [place] [place] [address] PCP - General Family Medicine 07/24/23 Micheline Sorto MD [address] [place] [address] Surgeon Cardiac Surg 07/24/23 Johan Henriquez MD [address] [place] [address] Cook Dinner Cardiology 07/24/23 Alea Harley MD [address] [place] [address] Cardiology 07/28/23 Alea Harley MD [address] [place] [address] Primary Staff Physician Cardiology 08/23/23 Wax Pattern Coater Relationship Specialty Start Date End Date Peggy Nazario [address] [place] [address] [place] [address] PCP - General Family Medicine 07/24/23 Micheline Sorto MD [address] [place] [address] Surgeon Cardiac Surg 07/24/23 Johan Henriquez MD [address] [place] [address] Cook Dinner Cardiology 07/24/23 Alea Harley MD [address] [place] [address] Cardiology 07/28/23 Alea Harley MD [address] [place] [address] Primary Staff Physician Cardiology 08/23/23 Wax Pattern Coater Relationship Specialty Start Date End Date Peggy Nazario [address] [place] [address] PCP - General Family Medicine 07/24/23 Micheline Sorto MD [address] [facility] [place] [address] Surgeon Cardiac Surg 07/24/23 Johan Henriquez MD [facility] [address] [place] [address] Cook Dinner Cardiology 07/24/23 Alea Harley MD [address] [place] [address] Cardiology 07/28/23 Alea Harley MD [address] [facility] [place] [address] Primary Staff Physician Cardiology 08/23/23 Wax Pattern Coater Relationship Specialty Start Date End Date Peggy Nazario MD [address] [place] [address] PCP - ACO Reach 01/05/23 Hannah Brian MD [address] [place] [address] PCP - General Family Medicine 11/03/23 Wax Pattern Coater Relationship Specialty Start Date End Date Peggy Nazario MD [address] [place] [address] PCP - ACO Reach 01/05/23 Hannah Brian MD [address] [place] [address] PCP - General Family Medicine 11/03/23 Wax Pattern Coater Relationship Specialty Start Date End Date Peggy Nazario MD [address] [place] [address] PCP - ACO Reach 01/05/23 Hannah Brian MD [address] [place] [address] PCP - General Family Medicine 11/03/23 Wax Pattern Coater Relationship Specialty Start Date End Date Peggy Nazario MD [address] [place] [address] PCP - ACO Reach 01/05/23 Hannah Brian MD [address] [place] [address] PCP - General Family Medicine 11/03/23 Wax Pattern Coater Relationship Specialty Start Date End Date Peggy Nazario MD [address] [place] [address] PCP - ACO Reach 01/05/23 Hannah Brian MD [address] [place] [address] PCP - General Family Medicine 11/03/23 Wax Pattern Coater Relationship Specialty Start Date End Date Peggy Nazario MD [address] [place] [address] PCP - ACO Reach 01/05/23 Hannah Brian MD [address] [place] [address] PCP - General Family Medicine 11/03/23 Wax Pattern Coater Relationship Specialty Start Date End Date Peggy Nazario MD [address] [place] [address] PCP - ACO Reach 01/05/23 Hannah Brian MD [address] [place] [address] PCP - General Family Medicine 11/03/23 Wax Pattern Coater Relationship Specialty Start Date End Date Peggy Nazario MD [address] [place] [address] PCP - ACO Reach 01/05/23 Peggy Nazario MD [address] [place] [address] PCP - General Family Medicine 02/08/23 11/02/23 Wax Pattern Coater Relationship Specialty Start Date End Date Peggy Nazario MD [address] [place] [address] PCP - ACO Reach 01/05/23 Hannah Brian MD [address] [place] [address] PCP - General Family Medicine 11/03/23 Wax Pattern Coater Relationship Specialty Start Date End Date Peggy Nazario MD [address] [place] [address] PCP - ACO Reach 01/05/23 Hannah Brian MD [address] [place] [address] PCP - General Family Medicine 11/03/23 Wax Pattern Coater Relationship Specialty Start Date End Date Peggy Nazario MD [address] [place] [address] PCP - ACO Reach 01/05/23 Hannah Brian MD [address] [place] [address] PCP - General Family Medicine 11/03/23 Wax Pattern Coater Relationship Specialty Start Date End Date Peggy Nazario MD [address] [place] [address] PCP - ACO Reach 01/05/23 Hannah Brian MD [address] [place] [address] PCP - General Family Medicine 11/03/23 Wax Pattern Coater Relationship Specialty Start Date End Date Peggy Nazario MD [address] [place] [address] PCP - ACO Reach 01/05/23 Hannah Brian MD [address] [place] [address] PCP - General Family Medicine 11/03/23 Wax Pattern Coater Relationship Specialty Start Date End Date Peggy Nazario MD [address] [place] [address] PCP - ACO Reach 01/05/23 Hannah Brian MD [address] [place] [address] PCP - General Family Medicine 11/03/23 Wax Pattern Coater Relationship Specialty Start Date End Date Peggy Nazario MD [address] [place] [address] PCP - ACO Reach 01/05/23 Hannah Brian MD [address] [place] [address] PCP - General Family Medicine 11/03/23 Wax Pattern Coater Relationship Specialty Start Date End Date Peggy Nazario MD [address] [place] [address] PCP - ACO Reach 01/05/23 Hannah Brian MD [address] [place] [address] PCP - General Family Medicine 11/03/23 Wax Pattern Coater Relationship Specialty Start Date End Date Peggy Nazario MD [address] [place] [address] PCP - ACO Reach 01/05/23 Hannah Brian MD [address] [place] [address] PCP - General Family Medicine 11/03/23 Wax Pattern Coater Relationship Specialty Start Date End Date Peggy Nazario MD [address] [place] [address] PCP - ACO Reach 01/05/23 Hannah Brian MD [address] [place] [address] PCP - General Family Medicine 11/03/23 Wax Pattern Coater Relationship Specialty Start Date End Date Peggy Nazario MD [address] [place] [address] PCP - ACO Reach 01/05/23 Hannah Brian MD [address] [place] [address] PCP - General Family Medicine 11/03/23 Wax Pattern Coater Relationship Specialty Start Date End Date Peggy Nazario MD [address] [place] [address] PCP - ACO Reach 01/05/23 Hannah Brian MD [address] [place] [address] PCP - General [facility] 11/03/23 Wax Pattern Coater Relationship Specialty Start Date End Date Peggy Nazario MD [address] [place] [address] PCP - ACO Reach 01/05/23 Hannah Brian MD [address] [place] [address] PCP - General Family Medicine 11/03/23 Source Comments (unrecognize d section and content) In the event this informatio n is protected by the Federal Confidentiality of Alcohol and Drug Abuse Patient Records regulations: The Federal rules restrict any use of the information to criminally investigate or prosecute any alcohol or drug abuse patient.[facility] the event this information is protected by the Federal Confidentiality of Alcohol and Drug Abuse Patient Records regulations: The Federal rules restrict any use of the information to criminally investigate or prosecute any alcohol or drug abuse patient.[facility] the event this information is protected by the Federal Confidentiality of Alcohol and Drug Abuse Patient Records regulations: The Federal rules restrict any use of the information to criminally investigate or prosecute any alcohol or drug abuse patient.[facility] the event this information is protected by the Federal Confidentiality of Alcohol and Drug Abuse Patient Records regulations: The Federal rules restrict any use of the information to criminally investigate or prosecute any alcohol or drug abuse patient.[facility] the event this information is protected by the Federal Confidentiality of Alcohol and Drug Abuse Patient Records regulations: The Federal rules restrict any use of the information to criminally investigate or prosecute any alcohol or drug abuse patient.[facility] the event this information is protected by the Federal Confidentiality of Alcohol and Drug Abuse Patient Records regulations: The Federal rules restrict any use of the information to criminally investigate or prosecute any alcohol or drug abuse patient.[facility] the event this information is protected by the Federal Confidentiality of Alcohol and Drug Abuse Patient Records regulations: The Federal rules restrict any use of the information to criminally investigate or prosecute any alcohol or drug abuse patient.[facility] the event this information is protected by the Federal Confidentiality of Alcohol and Drug Abuse Patient Records regulations: The Federal rules restrict any use of the information to criminally investigate or prosecute any alcohol or drug abuse patient.[facility] the event this information is protected by the Federal Confidentiality of Alcohol and Drug Abuse Patient Records regulations: The Federal rules restrict any use of the information to criminally investigate or prosecute any alcohol or drug abuse patient.[facility] the event this information is protected by the Federal Confidentiality of Alcohol and Drug Abuse Patient Records regulations: The Federal rules restrict any use of the information to criminally investigate or prosecute any alcohol or drug abuse patient.[facility] the event this information is protected by the Federal Confidentiality of Alcohol and Drug Abuse Patient Records regulations: The Federal rules restrict any use of the information to criminally investigate or prosecute any alcohol or drug abuse patient.[facility] the event this information is protected by the Federal Confidentiality of Alcohol and Drug Abuse Patient Records regulations: The Federal rules restrict any use of the information to criminally investigate or prosecute any alcohol or drug abuse patient.[facility] the event this information is protected by the Federal Confidentiality of Alcohol and Drug Abuse Patient Records regulations: The Federal rules restrict any use of the information to criminally investigate or prosecute any alcohol or drug abuse patient.[facility] the event this information is protected by the Federal Confidentiality of Alcohol and Drug Abuse Patient Records regulations: The Federal rules restrict any use of the information to criminally investigate or prosecute any alcohol or drug abuse patient.[facility] the event this information is protected by the Federal Confidentiality of Alcohol and Drug Abuse Patient Records regulations: The Federal rules restrict any use of the information to criminally investigate or prosecute any alcohol or drug abuse patient.[facility] Reason for Visit (unrecogniz ed section and [...] cardiomyopathy (HCC) Decompensated heart failure (HCC) Procedures [address] [place] [address] IP/OBS CARE HIGH MDM 75 MINUTES MEDICATION MANAGEMENT CONSULTS [facility] [address] [place] [address] Referral ID Status Reason Start Date Expiration Date Visits Re quested Visits Authorized [id number] 1 1 Reason Comments Refill Request Reason Comments Follow Up Reason Comments Cystoscopy-1 Patient Education Reason Comments Gynecologic Exam Medicare off year.ANDRE P: MIR SHEFFIELD 1986HRT: NoneLast pap 07-24-23 neg.Last mammogram 12-05-22 [facility] [place]. Not sure when she can do it [...] UTI Reason Onset Date Comments Other 04/19/2025 will call order clerk Reason Comments UTI Immunizations Declines at this [...] BE BASED ON THE PRIMARY CLINICAL RECORDS. [employer] [facility]. provides no warranty or guarantee of the accuracy or completeness of information in this document.
[2025-06-02 13:24] LABS: SARS-CoV-2 Ag NEGATIVE (NEGATIVE)
[2025-06-02] MEDS: LORAZEPAM 0.5 MG TABLET PO (14:04)
== END 2025-06-02 14:16 | disposition home or self-care (01) ==
PROVIDERS: Physician Assistant; Emergency Provider Emergency Medicine; PCP Student in an Organized Health Care Education/Training Program
DX: B34.9 Viral infection, unspecified (principal); Z98.890 Other specified postprocedural states; R30.0 Dysuria; Z87.440 Personal history of urinary (tract) infections; Z95.0 Presence of cardiac pacemaker; Z87.891 Personal history of nicotine dependence; Z79.01 Long term (current) use of 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s
CPT/HCPCS: 36415; 71045; 80053; 81003; 84484; 85025; 87804; 87811; 93005; 99285; Q0162

== ENCOUNTER 2025-06-02 23:07 | Inpatient (IN) | payer MEDICARE, BC, SELFPAY ==
--- OUTSIDE RECORDS SUMMARY | 2025-06-02 23:26 | XMS_ITS | CCD ---
Author Organization [facility] Care Team Providers Care Tear Down Matcher Name Role Phone Peggy Nazario Primary Care Physician Micheline Sorto MD Unavailable Johan Henriquez MD Unavailable [phone] Peggy Nazario Primary Care Provider [phone] Peggy Nazario MD Unavailable [phone] Peggy Nazario MD Primary Care Provider Alea Harley MD Unavailable Alea Harley MD Unavailable [phone] Hannah Brian Primary Care Physician [phone] Peggy Nazario Primary Care Provider Johan HENRIQUEZ [...] Unava ilable Eb G[employer] Consulting Unavaila ble [facility] Cardio, XXXX Consulting Unavailable Koby Masterson Attending [...] Attending Unavailable ALEA HARLEY Referring Unavailable [facility] Primary Care Unavailabl e VASAVADA, RAPHAEL P Referring Unavailable VASAVADA, RAPHAEL P Attending Unavailable NAZARIO, PEGGY JAYDE Primary Care Unavailabl e NAZARIO, [facility] Primary Care Unavailabl e HAMMALEA GAITAN F Referring Unavailable [facility], [facility] Primary Care Unavailabl e NITHYA, MICHELINE Referring Unavailable [facility] Primary Care Unavailabl e VASAVADA, RAPHAEL P Attending Unavailable SELF Referring Unavailable ALEA HARLEY Referring Unavailable [facility] Primary Care Unavailabl e ANA RIVAS Attending Unavailable [facility] Primary Care Unavailabl e NA[facility]IO, [facility] Primary Care Unavailabl e NITHYA, MICHELINE Attending Unavailable NITHYA, MICHELINE Referring Unavailable YECENIA GLEZ Admitting Unavailable [facility] Primary Care Unavailabl e YECENIA GLEZ Attending Unavailable [facility] Primary Care Unavailabl e NITHYA, MICHELINE Referring Unavailable NITHYA, MICHELINE Referring Unavailable [facility] Primary Care Unavailabl e NITHYA, MICHELINE Referring Unavailable PRIETO VILLALBA Attending Unavailable [facility] Primary Care Unavailabl e NITHYA, MICHELINE Referring Unavailable NAZARIO, PEGGY JAYDE Primary Care Unavailabl e NAZARIO, [facility] Primary Care Unavailabl e VASAVADA, RAPHAEL P Referring Unavailable VASAVADA, RAPHAEL P Attending Unavailable NITHYA, MICHELINE Referring Unavailable ALEA HARLEY Attending Unavailable [facility] Primary Care Unavailabl e [facility], [facility] Primary Care Unavailabl e VASAVADA, RAPHAEL [...] [cephalexin] Drug Allergy 3 GI intolerance, Unknown [facility] (20 sources) Egg; Translations: [Eggs] Food allergy Unknown (qualifier value) [facility] (20 sources) Meperidine; Translations: [meperidine] Drug Allergy 0 Syncope (disorder), Other: See Comments [facility] (20 sources) Morphine; Translations: [morphine] Drug Allergy 3 Unknown [facility] (20 sources) Sulfonamides (Antibiotic); Translations: [sulfa drugs] Drug allergy Nausea [facility] (2 sources) Aspirin; Translations: [ASPIRIN] Drug Allergy 0 Other: See Comments [facility] (9 sources) Latex; Translations: [LATEX] Drug Intolerance 3 Rash, Hives [facility] (20 sources) Aluminum aspirin Drug Allergy 0 [facility] (20 sources) Amoxicillin; Translations: [AMOXICILLIN] Drug Allergy 3 Diarrhea [facility] (20 sources) Erythromycin; Translations: [ERYTHROMYCIN] Drug Allergy 3 Unknown [facility] (20 sources) Latex Propensity to adverse reactions 3 Hives, Rash [facility] (20 sources) Meperidine Drug Allergy 3 Unknown [facility] (20 sources) Sulfonamides (Antibiotic) Drug Allergy 3 GI intolerance, Intolerance [facility] (20 sources) WHEAT DEXTRIN; Translations: [WHEAT BRAN] Drug Allergy 3 [facility] (20 sources) WHEAT DEXTRIN Drug Allergy 3 [facility] (5 sources) Eggs Or Egg-Derived Products Drug Allergy 3 [facility] (15 sources) egg extract; Translations: [EGG] Drug Allergy 4 Intolerance, GI Upset [facility] (4 sources) Meperidine; Translations: [Demerol HCl] Drug Allergy [facility] Repository (2 sources) Sulfonamides (Antibiotic); Translations: [SULFA (SULFONAMIDE ANTIBIOTICS)] Propensity to adverse reactions to drug (disorder) 3 [facility] Repository (20 sources) empagliflozin; Translations: [EMPAGLIFLOZIN] Drug Allergy 4 Angioedema [facility] Work Phone: (20 sources) Egg-Derived Products Drug Allergy 3 [facility] (20 sources) Amiodarone; Translations: [AMIODARONE] Drug Allergy 4 Nausea And Vomiting [facility] (20 sources) Valsartan; Translations: [VALSARTAN] Propensity to adverse reactions 4 [facility] (3 sources) Egg Protein-Containi ng Drug Products Drug Allergy 3 [facility] (1 source) Penicillins; Translations: [PENICILLINS] Propensity to adverse reactions to drug (disorder) 5 [facility] Repository (1 source) EGG DERIVED; Translations: [EGG DERIVED] Propensity to adverse reactions to drug (disorder) 3 [facility] Repository Medications Current Medications Medication Drug Class(es) Dates Sig (Normalized) Sig (Original) amoxicillin 500 mg / clavulanate 125 mg oral tablet (2 sources) Penicillin-class Antibacterial Start: 07-19-2023 End: 08-02-2023 Augmentin 500 mg-125 mg Tab 1 tab(s), Oral, q24hr for 14 day(s), 14 tab(s), Refill(s) 0, [facility], 165, cm, 07/19/23 15:21:00 EST, Height/Length [...] BID, # 60 tab(s), Refills(s) 0, Pharmacy: [facility] #[id number], 165, cm, 07/02/23 21:30:00 EST, Height/Length Dosing, 55.7, kg, 07/02/23 21:30:00 EST, Weight Dosing Start Date: 07/11/23 Status: Ordered Start: 07-11-2023 take 1 tablet by antonio th twice daily Eliquis 5 mg oral tablet 5 mg = 1 tab(s), Oral, BID, # 60 tab(s), Refills(s) 0, Pharmacy: [facility] #[id number], 165, cm, 07/02/23 21:30:00 EST, Height/Length Dosing, 55.7, kg, 07/02/23 21:30:00 EST, Weight Dosing Start Date: 07/11/23 Status: Ordered Start: 07-11-2023 take 1 tablet by antonio th twice daily Eliquis 5 mg oral tablet 5 mg = 1 tab(s), Oral, BID, # 60 tab(s), Refills(s) 0, Pharmacy: [facility] #[id number], 165, cm, 07/02/23 21:30:00 EST, Height/Length Dosing, [...] day(s), # 28 tab(s), Refills(s) 0, Pharmacy: [facility], 165, cm, 10/05/23 18:07:00 EST, Height/Length [...] completed, # 2 tab(s), Refills(s) 0, [id number], 165, cm, 04/26/23 15:23:00 EDT, Height/Length Dosing, 54.7, kg, 04/26/23 15:23:00 EDT, Weight Dosing Start Date: 04/26/23 Status: Ordered Start: 10-14-2022 take 1 tablet by antonio th once daily Cipro 500 mg Tab 500 mg = 1 tab(s), Oral, Daily, Take 1 tablet the day before the procedure and 1 tablet after the procedure, # 2 tab(s), Refills(s) 0, Pharmacy: [facility], 165, cm, 10/03/22 14:34:00 EST, Height/Length Dosing, 54.7, kg, 10/03/22 14:34:00 E... Start Date: 10/14/22 Status: Ordered Start: 03-03-2022 take 1 tablet by antonio once daily Cipro 500 mg Tab 500 mg = 1 tab(s), Oral, As Directed, Take 1 tablet day before procedure, and then 1 tablet day of procedure after procedure, # 2 tab(s), Refills(s) 0, Pharmacy: [facility], 165, cm, 03/03/22 10:04:00 EDT, Height/Length Dosing, 54, kg, 02/12... Start Date: 03/03/22 Status: Ordered dexamethasone 1 mg/ml / neomycin 3.5 mg/ml / polymyxin b 96117 unt/ml ophthalmic suspension (20 sources) Aminoglycoside Antibacterial, Polymyxin-class Antibacterial, Corticosteroid Start: 10-30-2024 fnddupjn-morygdugu-cmeJXCSPr sone (Maxitrol) 3.5-67747-4.1 ophthalmic suspension 10/30/2024 Active Start: 10-30-2024 take 1 drop(s) into the eye(s) four times daily xnvhkxev-jadkhkzmy-uwsRXEOHzlwxl (Maxitr ol) 3.5-12452-0.1 ophthalmic suspension INSTILL 1 DROP into affected eye FOUR TIMES DAILY FOR 14 DAYS 10/30/2024 Active dicyclomine hydrochloride 10 mg oral capsule (1 source) Anticholinergic Start: 07-01-2023 End: 07-08-2023 take 1 capsule by mouth four times daily Bentyl 10 mg Cap 10 mg = 1 cap(s), Oral, QID, X 7 day(s), # 14 cap(s), Refills(s) 0, Pharmacy: [facility] #[id number], 165, cm, 06/30/23 19:37:00 EST, Height/Length Dosing, [...] day (at bedtime), 42.5 gm, Refill(s) 6, [facility], 165.1, cm, 01/28/23 21:34:00 EDT, Height/Length Dosing, 54.5, kg, 01/28/23 21:34:00 EDT, Weight Dosing Start Date: 03/20/23 Status: Ordered Start: 03-03-2022 estradiol 0.1 mg/g vaginal cream 1 gm, Vaginal, MonFri, # 42.5 gm, Refills(s) 6, Pharmacy: [facility], 165, cm, 03/03/22 10:04:00 [...] MonFri, # 42.5 gm, Refills(s) 6, Pharmacy: [facility], 165, cm, 02/23/21 13:24:00 [...] MonFri, # 42.5 gm, Refills(s) 6, Pharmacy: [facility], 165, cm, 03/03/22 10:04:00 EDT, Height/Length Dosing, 54, kg, 03/03/22 10:04:00 EDT, Weight Dosing Start Date: 03/03/22 Status: Ordered Start: 02-26-2021 estradiol 0.1 mg/g vaginal cream 1 gm, Vaginal, MonFri, # 42.5 gm, Refills(s) 6, Pharmacy: [facility], 165, cm, 02/23/21 13:24:00 [...] day(s), # 100 mL, Refills(s) 0, Pharmacy: [facility], 165, cm, 11/22/23 16:28:00 EDT, Height/Length [...] antonio th once daily. polyethylene glycol 3350 44842 mg powder for oral solution (20 sources) [...] Daily, # 255 gm, Refills(s) 0, Pharmacy: [facility] #[id number], 165, cm, 07/02/23 21:30:00 EST, Height/Length Dosing, [...] for 7 day(s), 5 mL, Refill(s) 0, [facility] #[id number], 165, cm, 12/24/21 17:41:00 EDT, Height/Length Dosing, 54, kg, 12/24/21 17:41:00 EDT, Weight Dosing Start Date: 12/24/21 Stop Date: 12/31/21 Status: Ordered Zofran ODT 4 mg Tab-Dis (12 sources) Start: take 1 tablet by mouth every eight hours Zofran ODT 4 mg Tab-Dis 4 mg = 1 tab(s), Oral, q8hr, # 12 tab(s), Refills(s) 0, Pharmacy: [facility] #[id number], 165, cm, 06/30/23 19:37:00 EST, Height/Length Dosing, [...] Daily, # 60 tab(s), Refills(s) 0, Pharmacy: [facility] #[id number], 165, cm, 07/02/23 21:30:00 EST, Height/Length Dosing, [...] Coronary atherosclerosis; Translations: [Atherosclerotic heart disease of [place] coronary artery without angina pectoris] Onset: 3 [...] current use of drug therapy; Translations: [Other emt intermediate (current) drug therapy] Onset: 3 Episodic Other [...] sources) Long-term current use of anticoagulant; Translations: [longterm (current) use of 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s] Onset: 01-09-2024 09-26-2023 [...] pt everything else she will resume. Normal [facility] [id number] 36 Has 1 week follow-up scheduled? [...] well for weeks prior to the procedure. Insurance Defense Attorney instructed pt to avoid strenuous activity or heavy lifting for at least a week. Insurance Defense Attorney reached out to laborer carpentry dock RN regarding the device card and per [...] questions or concerns at this time. Normal [facility] Telephoneon 05-29-2025 Telephone [id number] Harjit Asencio I 1950 F Date Provider Department Center 05/29/2025 [facility] Family History Problem Relation Age of Onset Coronary artery disease Mother Diabetes Mother Coronary artery disease Father Family Status - Relation Status Age at Mother Father Sister Brother Alive Reason for Visit and Comments: T-ANA follow-up call [Other] Normal [facility] 30on 05-28-2025 30 The patient is Moderately [...] by Ziggy Brown RN Outcome: Progressing Normal [facility] 30 The patient is Moderately Stable - [...] facility with appropriate resources Outcome: Progressing Normal [facility] BASIC METABOLIC PANELon 05-14 Anion gap [Moles/Vol] 11 mmol/L Normal 7-[address] [facility] Comment on above: Performed By: #### L [id number] #### [facility] [address] [place] [address] [place] Calcium [Mass/Vol] 8.5 mg/dL Low 8.6-10.3 [facility] Comment on above: Performed By: #### L [id number] #### [facility] [address] [place] [address] [place] Chloride [Moles/Vol] 102 mmol/L Normal 98-107 [facility] Comment on above: Performed By: #### L [id number] #### [facility] [address] [place] [address] [place] CO2 [Moles/Vol] 27 mmol/L Normal 21-31 [facility] Comment on above: Performed By: #### L [id number] #### [facility] [address] [place] [address] [place] Creatinine [Mass/Vol] 0.93 mg/dL Normal 0.60-1.20 [facility] Comment on above: Performed By: #### L [id number] #### [facility] [address] [place] [address] [place] GLOMERULAR FILTRATION RATE ML/MIN/1.73 SQ M.PREDICTED 63.3 mL/min/1.73m*2 Normal >60.0 [facility] Comment on above: Result Comment: The [facility]???s estimated glomerular filtration rate (eGFR) will no [...] group of individuals. Performed By: #### L [id number] #### [facility] [address] [place] [address] [place] Glucose [Mass/Vol] 211 mg/dL High 70-100 [facility] Comment on above: Performed By: #### L [id number] #### [facility] [address] [place] [address] [place] Potassium [Moles/Vol] 4.6 mmol/L Normal 3.5-5.[address] [facility] Comment on above: Performed By: #### L [id number] #### [facility] [address] [place] [address] [place] Sodium [Moles/Vol] 135 mmol/L Low 136-145 [facility] Comment on above: Performed By: #### L [id number] #### [facility] [address] [place] [address] [place] Urea nitrogen [Mass/Vol] 14 mg/dL Normal 7-25 [facility] Comment on above: Performed By: #### L [id number] #### [facility] [address] [place] [address] [place] UREA NITROGEN/CREATININE (MASS RATIO) IN SER/PLAS 15.1 Normal [facility] Comment on above: Performed By: #### L [id number] #### [facility] [address] [place] [address] [place] CBC WITH AUTO DIFFERENTIALon 05-28-2025 Basophils (Bld) [#/Vol] 0.01 10*3/uL Normal 0.00-0.20 [facility] Comment on above: Performed By: #### L [id number] #### [facility] [address] [place] [address] [place] Basophils/100 WBC (Bld) 0.1 % Normal 0.0-1.0 [facility] Comment on above: Performed By: #### L [id number] #### [facility] [address] [place] [address] [place] Eosinophils (Bld) [#/Vol] 0.00 10*3/uL Normal 0.00-0.50 [facility] Comment on above: Performed By: #### L [id number] #### [facility] [address] [place] [address] [place] Eosinophils/100 WBC (Bld) 0.0 % Normal 0.0-6.0 [facility] Comment on above: Performed By: #### L [id number] #### [facility] [address] Erythrocyte distribution width (RBC) [Ratio] 14.2 % Normal 11.5-15.0 [facility] Comment on above: Performed By: #### L [id number] #### [facility] [address] ERYTHROCYTE MEAN CORPUSCULAR HEMOGLOBIN CONCENTRATION (G/DL) BY AUTOMATED 32.2 g/dL Normal 32.0-35.0 [facility] Comment on above: Performed By: #### L [id number] #### [facility] [address] Hematocrit (Bld) [Volume fraction] 38.2 % Normal 36.0-45.0 [facility] Comment on above: Performed By: #### L [id number] #### [facility] [address] Hemoglobin (Bld) [Mass/Vol] 12.3 g/dL Normal 12.0-15.0 [facility] Comment on above: Performed By: #### L [id number] #### [facility] [address] Immature granulocytes (Bld) [#/Vol] 0.06 10*3/uL Normal 0.00-0.20 [facility] Comment on above: Performed By: #### L [id number] #### [facility] [address] Immature granulocytes/100 WBC (Bld) 0.5 % Normal 0.0-1.0 [facility] Comment on above: Performed By: #### L [id number] #### [facility] [address] Lymphocytes (Bld) [#/Vol] 0.42 10*3/uL Low 1.20-4.00 [facility] Comment on above: Performed By: #### L [id number] #### [facility] [address] [place] [address] [place] Lymphocytes/100 WBC (Bld) 3.3 % Low 20.0-45.0 [facility] Comment on above: Performed By: #### L [id number] #### [facility] [address] [place] [address] [place] MCH (RBC) [Entitic mass] 29.9 pg Normal 27.0-33.0 [facility] Comment on above: Performed By: #### L [id number] #### [facility] [address] [place] [address] [place] MCV (RBC) [Entitic vol] 92.9 fL Normal 82.0-98.0 [facility] Comment on above: Performed By: #### L [id number] #### [facility] [address] [place] [address] [place] Monocytes (Bld) [#/Vol] 0.65 10*3/uL Normal 0.10-1.00 [facility] Comment on above: Performed By: #### L [id number] #### [facility] [address] [place] [address] [place] Monocytes/100 WBC (Bld) 5.1 % Normal 5.0-12.0 [facility] Comment on above: Performed By: #### L [id number] #### [facility] [address] [place] [address] [place] Neutrophils (Bld) [#/Vol] 11.71 10*3/uL High 1.60-7.60 [facility] Comment on above: Performed By: #### L [id number] #### [facility] [address] [place] [address] [place] Neutrophils/100 WBC (Bld) 91.0 % High 40.0-72.0 [facility] Comment on above: Performed By: #### L [id number] #### [facility] [address] [place] [address] [place] NRBC (PER 100 WBCS) BY AUTOMATED COUNT 0.0 % Normal 0 [facility] Comment on above: Performed By: #### L [id number] #### [facility] [address] PLATELETS (10*3/UL) IN BLOOD AUTOMATED COUNT 184 10*3/uL Normal 150-400 [facility] Comment on above: Performed By: #### L [id number] #### [facility] [address] RBC (Bld) [#/Vol] 4.11 10*6/uL Normal 3.80-5.00 [facility] Comment on above: Performed By: #### L [id number] #### [facility] [address] WBC (Bld) [#/Vol] 12.85 10*3/uL High 4.00-10.60 [facility] Comment on above: Performed By: #### L [id number] #### [facility] [address] CONSULTon 05-28-2025 CONSULT discharge planning: to Home Patient came to this admission from their private residence in the community, a planned admission for transcatheter [id number]-bs-[id number] repair with [employer]; group underwriter confirmed no wound care needed from procedure Normal [facility] DSon 05-28-2025 DS - Attestation signed by [...] No thyromegaly (more content not included)... Normal [facility] 30on 05-27-2025 30 The patient is Moderately Stable - Low risk of patient condition declining or worsening The patient's goals for the shift include comfort, rest The clinical goals for the shift include VSS, safety, cath site checks Normal [facility] 30 The patient is Moderately Stable - [...] and maintained or improved Outcome: Progressing Normal [facility] ABG COMPLETE UNSOLICITED RES ULTSon 05-27-2025 A-ADO2 Normal [facility] Comment on above: Result Comment: C^In calculable Performed By: #### L [id number] #### [facility] [address] [place], [place] [address] Base excess Calc (Bld) [Moles/Vol] -0.5000 mmol/L Normal -2.0-3.0 [facility] Comment on above: Performed By: #### L [id number] #### [facility] [address] [place] [address] [place] CALCIUM IONIZED, ARTERIAL 1.18 mmol/L Normal 1.13-1.32 [facility] Comment on above: Performed By: #### L [id number] #### [facility] [address] [place] [address] [place] CARBOXYHEMOGLOBIN, ARTERIAL 1.0 % Normal [facility] Comment on above: Performed By: #### L [id number] #### [facility] [address] [place] [address] [place] Chloride [Moles/Vol] 104 mmol/L Normal 98-107 [facility] Comment on above: Performed By: #### L [id number] #### [facility] [address] [place] [address] [place] CO2 (Bld) [Partial pressure] 39 mm[Hg] Normal 35-45 [facility] Comment on above: Performed By: #### L [id number] #### [facility] [address] [place] [address] [place] DEOXYGENATED HEMOGLOBIN, ARTERIAL 0.3 % Normal [facility] Comment on above: Performed By: #### L [id number] #### [facility] [address] [place] [address] [place] Glucose [Mass/Vol] 112 mg/dL High 65-95 [facility] Comment on above: Performed By: #### L [id number] #### [facility] [address] [place] [address] [place] HCO3 (Bld) [Moles/Vol] 24.2 mmol/L Normal 21.0-28.0 [facility] Comment on above: Performed By: #### L [id number] #### [facility] [address] [place] [address] [place] Hematocrit (Bld) [Volume fraction] 35 % Low 37-50 [facility] Comment on above: Performed By: #### L [id number] #### [facility] [address] [place] [address] [place] Hemoglobin (Bld) [Mass/Vol] 11.8 g/dL Normal [facility] Comment on above: Performed By: #### L [id number] #### [facility] [address] [place] [address] [place] LACTATE, ARTERIAL 0.90 mmol/L Normal 0.36-1.39 [facility] Comment on above: Performed By: #### L [id number] #### [facility] [address] [place] [address] [place] METHEMOGLOBIN, ARTERIAL 0.7 % Normal 0.0-1.5 [facility] Comment on above: Performed By: #### L [id number] #### [facility] [address] [place] [address] [place] Oxygen (Bld) [Partial pressure] 152 mm[Hg] High 83-108 [facility] Comment on above: Performed By: #### L [id number] #### [facility] [address] [place] [address] [place] OXYGEN SATURATION (%) IN ARTERIAL BLOOD 99.7 % Normal 94.0-100.0 [facility] Comment on above: Performed By: #### L [id number] #### [facility] [address] [place] [address] [place] OXYGENATED HEMOGLOBIN IN ARTERIAL BLOOD 98.0 % High 94.0-97.0 [facility] Comment on above: Performed By: #### L [id number] #### [facility] [address] [place] [address] [place] PAO2/PAO2 Normal [facility] Comment on above: Result Comment: C^In calculable Performed By: #### L [id number] #### [facility] [address] [place] [address] [place] PF RATIO Normal [facility] Comment on above: Result Comment: C^In calculable Performed By: #### L [id number] #### [facility] [address] [place] [address] [place] PH OF ARTERIAL BLOOD 7.40 Normal 7.35-7.45 [facility] Comment on above: Performed By: #### L [id number] #### [facility] [address] [place] [address] [place] Potassium [Moles/Vol] 3.7 mmol/L Normal 3.4-5.2 [facility] Comment on above: Performed By: #### L [id number] #### [facility] [address] [place] [address] [place] Sodium [Moles/Vol] 135 mmol/L Low 136-146 [facility] Comment on above: Performed By: #### L [id number] #### [facility] [address] [place] [address] [place] TEMPERATURE 37.0 ???C [facility] Comment on above: Performed By: #### L [id number] #### [facility] [address] [place] [address] RUST HPon 05-27-2025 HP H&P reviewed. The patient [...] the patient today again including risk of CO, stroke, and possible need for conversion to open surgical approach. She understands and agrees to proceed. She signed informed consent. Normal [facility] Orders Onlyon 05-27-2025 Orders Only [id number] Harjit Asencio I 1950 F Date Provider Department Center 05/27/2025 NATHAN WALTERS [facility] Family History Problem Relation Age of Onset Coronary artery disease Mother Diabetes Mother Coronary artery disease Father Family Status - Relation Status Age at Mother Father Sister Brother Alive [facility] POCT GLUCOSE METER UNSOLICIT ED RESULTSon 05-27-2025 Glucose [Mass/Vol] 90 mg/dL Normal 70-105 [facility] Comment on above: Order Comment: Waive d Testing in the ED is performed under the ED CLIA certificate #[id number]. Result Comment: asor ia3 Performed By: #### L [id number] #### [facility] [address] [place] [address] R[place] TYPE AND SCREENon 05-27-2025 AB SCREEN Negative Normal [facility] Comment on above: Performed By: #### L [id number] #### [facility] , ABO group Nom (Bld) O Normal [facility] Comment on above: Performed By: #### L [id number] #### [facility] , RH TYPE IN BLOOD Positive Normal [facility] Comment on above: Performed By: #### L [id number] #### [facility] , HPon 05-19-2025 [facility] Cardiology - [facility] Germain Asencio is a 75 [...] At her recent visit with cardiology at [facility] on 09/26/2023 valsartan was stopped and low-dose lisinopril 5 mg once daily was added. The plan was to add Jardiance. There is note of her to being evaluated by CT surgery Dr. Sorto regarding candidacy for cardiac surgery and she was deemed high risk. She was also evaluated at [facility] cardiothoracic surgery. Initial workup for her mitral valve disease was started. Spironolactone was changed to half tablet twice a day instead of 1 tablet once a day. She was also recommended to start taking digoxin at night instead of the morning. At visit with pr on 10/16/2023 I increased her carvedilol to 6.25 mg twice daily. I asked for a cardiopulmonary excise test. After visit with pr on 10/30/2023 I added Jardiance 10 mg daily to optimize GDMT for systolic heart failure. I also started her on amiodarone to attempt rhythm control. Following that she stopped both medications due to side effects. After visit with pr on 12/01/2023 I referred her to Patty [...] then und (more content not included)... Normal [facility] Office Visiton 05-19-2025 Follow-up visit [id number] Harjit Asencio I 1950 F Date Provider Department Center 05/19/2025 Mulu-RAFAEL [facility] Family History Problem Relation Age of Onset Coronary artery disease Mother Diabetes Mother Coronary artery disease Father Family Status - Relation Status Age at Mother Father Sister Brother Alive Level of Service:92405 [place] OFFICE/OUTPATIENT ESTABLISHED HIGH MDM 40 MIN Normal [facility] Orders Onlyon 05-14-2025 Orders Only [id number] Harjit Asencio I 1950 Provider Department Center 05/14/2025 James-RADHA ROGER [facility] Family History Problem Relation Age of Onset Coronary artery disease Mother Diabetes Mother Coronary artery disease Father Family Status - Relation Status Age at Mother Father Sister Brother Alive Normal [facility] Urinalysis macro (dipstick) panel (U)on 05-08-2025 Bilirubin, UA Negative Negative - 4(70) +++ mg/dL [facility] Blood, UA Negative Negative - 50 Pedro/mcL [facility] Clarity, UA Clear [facility] Color, UA Yellow [facility] Glucose, UA Negative Negative - 2000(110) ++++ mg/dL [facility] Ketones, UA Negative Negative - 160(16) ++++ mg/dL [facility] Leukocytes, UA Negative Negative - 500+++ Ghislaine/mcL [facility] Nitrite, UA Negative Negative - Positive [facility] pH, UA 7 5 - 9 [facility] Protein, UA Negative Negative - 2000(20) ++++ mg/dL [facility] Spec Grav, UA 1.01 1 - 1.03 [facility] Urobilinogen, UA 0.2 0.2 - 12 mg/dL [facility] ED Clinical Summaryon 2024 ED Clinical Summary ED Clinical Summary [place] [id number] ED Clinical Summary Person Information Name: HARJIT ASENCIO I [place] Age: 75 Years : 1950 Sex: Female Language: Trinidadian PCP: Snehal MCMAHON, Hannah De Leon Marital [...] 04/28/2025 01:39:01 04/28/2025 01:39:01 04/28/2025 01:39:01 ADDRESS: [address] [place] [address] [address] [facility] [id number] PHYS DOC NOTES: MEDICAL INFORMATION: Prescriptions Given: [...] Address: When: [address] [place] [address] [place] [address] [facility] In 3 days 05/01/2025 Comments: Continue next dose of vancomycin as scheduled. DIAGNOSIS: 1:Accidental medication overdose Normal [facility] ED Note-Physicianon 04-28-20 ED Note-Physician ED [...] and Complexity of Problems Differential Diagnosis: [] [facility] Data External documents reviewed: [] My [...] days 05/01/[address] [place] [address]- Business (1) Additional Instructions: Continue next dose [...] per year, (more content not included)... Normal [facility] Comment on above: Result Comment: Elec tronically Signed By: Yvette Vasquez, Layton Cazares\.br\Date and Time Signed: 04/28/25 03:57 EDT ED Patient Summaryon 025 ED Patient Summary ED Patient Summary [address] [address] Patient Discharge Instructions Person Information Name: HARJIT ASENCIO I Age: 75 Years Arrival Date: 04/28/2025 00:50:29 Discharge Diagnosis: 1:Accidental medication overdose Primary Care Physician: Hannah Brian MD Provider Information Primary Provider: Layton Crawford M.D. [employer] Administrator:None The exam and treatment you received in the Emergency Department were for an urgent problem and are not intended as complete care. It is important that you follow up with a doctor, nurse practitioner, or physician???s research study assistant for ongoing care. If your symptoms [...] With: Address: When: Hannah [place] [address] Business (1) In 3 days [...] opioids can be used to help relieve ndmyatef-nl-xxpvhy pain and are often prescribed following a [...] be stru (more content not included)... Normal [facility] Lab Miscellaneous-LCon 04-28 Lab Miscellaneous COMMENT Invalid Interpretation Code [facility] Comment on above: Result Comment: Test Ordered: [id number] C difficile Toxins A+B, EIA C difficile Toxins A+B, EIA Positive [A ] Reference Range: Negative Performed at: [facility] [address] [place], [place] [id number] PhD Emily Fraser Performed By: #### 1 [id number] #### [facility] [address] [place] [address] O & P EXAM, ROUTINE, REFLEXo n 04-28-2025 Result 1 Comment Invalid Interpretation Code [facility] Comment on above: Result Comment: No o va, cysts, or parasites seen. One negative specimen does not rule out the possibility of a parasitic infection. Performed at: [facility] [address] [place], [place] [id number] PhD Emily Fraser Performed By: #### 3 [id number] #### [facility] [address] [place] [address] O & P Exam, Routineon 2024 Ova/Para Exam Rt Final report Invalid Interpretation Code [facility] Comment on above: Result Comment: Thes e results were obtained using wet preparation(s) and trichrome stained smear. This test does not include testing for Cryptosporidium parvum, Cyclospora, or Microsporidia. Performed at: [facility] [id number] PhD Emily Fraser Performed By: #### 1 [id number] #### [facility] [address] [place] [address] C. diff by PCRon 04-24-2025 Clostridium difficile by PCR Positive Abnormal Negative [facility] Comment on above: Result Comment: Resu lts Called To Jennifer Alcaraz/Doron By laquita And Read Back For Confirmation On 04/24/2025 12:20:03 EDT. This test result should be correlated with clinical presentations and medical history by a healthcare provider to determine its clinical significance. Performed By: #### 4 [id number] #### [facility] [address] [place] [address] CDiff PCRon 04-24-2025 Cdiff Specimen Acceptable Acceptable Normal [facility] Comment on above: Performed By: #### 3 [id number] #### [facility] [address] [place] [address] Order Cancelled No, PCR to follow Normal [facility] Comment on above: Performed By: #### 3 [id number] #### [facility] [address] [place] [address] Enteric Panel by PCRon 04-24 Campylobacter group Not detected Normal [facility] Comment on above: Result Comment: Test ing was performed utilizing reverse music pastor (RT), polymerase chain reaction (PCR), and array [...] nulcleic acid test. Performed By: #### 1 [id number] #### [facility] [address] [place] [address] Enteric Panel Intrl QC Pass Normal [facility] Comment on above: Result Comment: Test ing was performed utilizing reverse music pastor (RT), polymerase chain reaction (PCR), and array [...] 1 and 2. Performed By: #### 1 [id number] #### [facility] [address] [place] [address] Norovirus GI/GII Not detected Normal [facility] Comment on above: Performed By: #### 1 [id number] #### [facility] [address] [place] [address] Rotavirus A Not detected Normal [facility] Comment on above: Performed By: #### 1 [id number] #### [facility] [address] [place] [address] Salmonella species Not detected Normal [facility] Comment on above: Result Comment: This test result should be correlated with clinical presentations and medical history by a healthcare provider to determine its clinical significance. Performed By: #### 1 [id number] #### [facility] [address] [place] [address] Shiga Tox Interp Negative Normal [facility] Comment on above: Performed By: #### 1 [id number] #### [facility] [address] [place] [address] Shiga Toxin 1 Not detected Normal [facility] Comment on above: Performed By: #### 1 [id number] #### [facility] [address] [place] [address] Shiga Toxin 2 Not detected Normal [facility] Comment on above: Performed By: #### 1 [id number] #### [facility] [address] [place] [address] Shigella species Not detected Normal [facility] Comment on above: Performed By: #### 1 [id number] #### [facility] [address] [place] [address] Vibrio Group Not detected Normal [facility] Comment on above: Performed By: #### 1 [id number] #### [facility] [address] [place] [address] Yersinia enterocolitica Not detected Normal [facility] Comment on above: Performed By: #### 1 [id number] #### [facility] [address] [place] [address] Lab Miscellaneous-LCon 04-24 Source stool Invalid Interpretation Code [facility] Comment on above: Performed By: #### 1 [id number] #### [facility] [address] [place] [address] Test Code [id number] Invalid Interpretation Code [facility] Comment on above: Performed By: #### 1 [id number] #### [facility] [address] [place] [address] Test Name Cdiff Toxin EIA Invalid Interpretation Code [facility] Comment on above: Performed By: #### 1 [id number] #### [facility] [address] [place] [address] BMPon 04-19-2025 CO2 [Moles/Vol] 26 mmol/L Normal 21-31 [facility] Comment on above: Performed By: #### 2 [id number] #### [facility] [address] [place] [address] Anion gap [Moles/Vol] 11 mmol/L Normal 6-16 [facility] Comment on above: Performed By: #### 2 [id number] #### [facility] [address] [place] [address] BUN/Creat Ratio 14 No Units Normal 10-20 [facility] Comment on above: Performed By: #### 2 [id number] #### [facility] [address] [place] [address] Calcium [Mass/Vol] 9.6 mg/dL Normal 8.9-11.1 [facility] Comment on above: Performed By: #### 2 [id number] #### [facility] [address] [place] [address] Chloride [Moles/Vol] 103 mmol/L Normal 101-111 [facility] Comment on above: Performed By: #### 2 [id number] #### [facility] [address] [place] [address] Creatinine [Mass/Vol] 1.0 mg/dL Normal 0.5-1.3 [facility] Comment on above: Performed By: #### 2 [id number] #### [facility] [address] [place] [address] Glucose [Mass/Vol] 136 mg/dL Normal 55-199 [facility] Comment on above: Performed By: #### 2 [id number] #### [facility] [address] [place] [address] Potassium [Moles/Vol] 3.9 mmol/L Normal 3.5-5.3 [facility] Comment on above: Performed By: #### 2 [id number] #### [facility] [address] [place] [address] Sodium [Moles/Vol] 136 mmol/L Normal 135-145 [facility] Comment on above: Performed By: #### 2 [id number] #### [facility] [address] [place] [address] Urea nitrogen [Mass/Vol] 14 mg/dL Normal 5-21 [facility] Comment on above: Performed By: #### 2 [id number] #### [facility] [address] [place] [address] CBC w/ Auto Diffon 5 Basophil Absolute 0.0 E9/L Normal 0.0-0.2 [facility] Comment on above: Performed By: #### 2 [id number] #### [facility] [address] [place] [address] Basophils/100 WBC (Bld) 0.7 % Normal 0.0-2.0 [facility] Comment on above: Performed By: #### 2 [id number] #### [facility] [address] [place] [address] Eos Absolute 0.0 E9/L Normal 0.0-0.5 [facility] Comment on above: Performed By: #### 2 [id number] #### [facility] [address] [place] [address] Eosinophils/100 WBC (Bld) 0.4 % Normal 0.0-8.0 [facility] Comment on above: Performed By: #### 2 [id number] #### [facility] [address] [place] [address] Erythrocyte distribution width (RBC) [Ratio] 14.4 % High 10.9-14.2 [facility] Comment on above: Performed By: #### 2 [id number] #### [facility] [address] [place] [address] Hematocrit (Bld) [Volume fraction] 44.9 % Normal 34.0-46.0 [facility] Comment on above: Performed By: #### 2 [id number] #### [facility] [address] [place] [address] Hemoglobin (Bld) [Mass/Vol] 14.8 g/dL Normal 12.0-16.0 [facility] Comment on above: Performed By: #### 2 [id number] #### [facility] [address] [place] [address] Lymph Absolute 0.7 E9/L Low 1.0-4.0 [facility] Comment on above: Performed By: #### 2 [id number] #### [facility] [address] [place] [address] Lymphocytes/100 WBC (Bld) 10.8 % Low 14.0-50.0 [facility] Comment on above: Performed By: #### 2 [id number] #### [facility] [address] [place] [address] MCH (RBC) [Entitic mass] 29.8 pg Normal 27.0-34.0 [facility] Comment on above: Performed By: #### 2 [id number] #### [facility] [address] [place] [address] MCHC (RBC) [Mass/Vol] 33.0 g/dL Normal 31.4-36.0 [facility] Comment on above: Performed By: #### 2 [id number] #### [facility] [address] [place] [address] MCV (RBC) [Entitic vol] 90.2 fL Normal 80.0-100.0 [facility] Comment on above: Performed By: #### 2 [id number] #### [facility] [address] [place] [address] [place] Absolute 0.4 E9/L Normal 0.2-1.0 [facility] Comment on above: Performed By: #### 2 [id number] #### [facility] [address] [place] [address] Monocytes/100 WBC (Bld) 5.2 % Normal 4.0-14.0 [facility] Comment on above: Performed By: #### 2 [id number] #### [facility] [address] [place] [address] Neutro Absolute 5.5 E9/L Normal 2.0-7.5 [facility] Comment on above: Performed By: #### 2 [id number] #### [facility] [address] [place] [address] Neutro Auto 82.9 % High 36.0-75.0 [facility] Comment on above: Performed By: #### 2 [id number] #### [facility] [address] [place] [address] Platelet 248.0 E9/L Normal 150.0-500.0 [facility] Comment on above: Performed By: #### 2 [id number] #### [facility] [address] [place] [address] Platelet mean volume (Bld) [Entitic vol] 8.2 fL Normal 6.4-10.8 [facility] Comment on above: Performed By: #### 2 [id number] #### [facility] [address] [place] [address] RBC 5.0 E12/L Normal 4.3-5.9 [facility] Comment on above: Performed By: #### 2 [id number] #### [facility] [address] [place] [address] WBC 6.7 E9/L Normal 4.0-11.0 [facility] Comment on above: Performed By: #### 2 [id number] #### [facility] [address] [place] [address] CT Abdomen/Pelvis w/o Contra ston 04-19-2025 CT [...] DO Transcribed by: ARAVIND Technologist: EVA Doty [facility] ED Clinical Summaryon 2024 ED Clinical Summary ED Clinical Summary [place] [id number] ED Clinical Summary Person Information Name: HARJIT ASENCIO I Patricia/[facility] Age: 75 Years : 1950 Sex: Female Language: Trinidadian PCP: Snehal MCMAHON, Hannah De Leon Marital [...] 04/19/2025 15:11:52 04/19/2025 15:11:52 04/19/2025 15:11:52 ADDRESS: [address] [place] [address] [address] [facility] [id number] PHYS DOC NOTES: MEDICAL INFORMATION: Prescriptions Given: New Medications [facility] [place], [place] [id number], [phone] bacillus coagulans-inulin (Probiotic Formula (Bacillus Coagulans) oral capsule) 1 Capsules By Mouth every day for 30 Days. Refills: 0. Medications to Continue Taking That Have Changed [facility] [place], [place] [id number], [phone] START: ondansetron (Zofran ODT 4 mg Tab-Dis) [...] up: With: Address: When: Ana Turner [address], [address] [place] [phone] Business (1) In 3 days 04/22/2025 Comments: Follow-up with GI for further evaluation With: Address: When: Hannah Brian [address] [place] [address] Business (1) In 3 days 04/22/2025 Comments: [...] symptoms. DIAGNOSIS: Abdominal pain, acute; Diarrhea Normal [facility] ED Note-Physicianon 04-19-20 ED Note-Physician ED [...] for this. Patient has been seen at [facility] twice for this. She had labs [...] Turner In 3 days 04/22/2025 EDT [address] [facility], [address] [place] [address]- [phone] Business (1) Additional Instructions: Follow-up with GI for further evaluation Hannah Brian In 3 days 04/22/2025 EDT [address] [facility] [address]- Business (1) Additional Instructions: Call the office of your primary care doctor to arrange for follow-up within the above-stated timeframe. Follow-up with your primary care doctor about this ED visit. You should review your labs, imaging, and diagnoses from this ED visit with your primary care physician. There are occasionally non-emergent fi (more content not included)... Normal [facility] Comment on above: Result Comment: Elec malaally Signed By: Jayson Calloway DO\.zak\Date and Time Signed: 04/19/25 16:47 EDT ED Patient Summaryon 025 ED Patient Summary ED Patient Summary [address] [address] Patient Discharge Instructions Person Information Name: HARJIT ASENCIO I Age: 75 Years Arrival Date: 04/19/2025 09:40:51 Discharge Diagnosis: Abdominal pain, acute; Diarrhea Primary Care Physician: Hannah Brian MD Provider Information Primary Provider: Jayson Calloway DO [employer] Administrator:None The exam and treatment you received in the Emergency Department were for an urgent problem and are not intended as complete care. It is important that you follow up with a doctor, nurse practitioner, or physician???s research study assistant for ongoing care. If your symptoms [...] Instructions: With: Address: When: Ana Turner [address], [address] [place] [phone] [facility] () In 3 days 04/22/2025 Comments: Follow-up with GI for further evaluation With: Address: When: Hannah Brian [address] [place] [phone] [facility] (1) In 3 days 04/22/2025 Comments: Call [...] opioids can be used to help relieve bxiuoppu-zq-xblyox pain and are often prescribed following a [...] o Ta (more content not included)... Normal [facility] Extra Blueon 04-19-2025 Tube Collected Plasma Yes Invalid Interpretation Code [facility] Comment on above: Performed By: #### 1 [id number] #### [facility] [address] [place] [address] Hep Func Panelon 04-19-2025 Albumin [Mass/Vol] 4.4 g/dL Normal 3.3-5.0 [facility] Comment on above: Performed By: #### 2 [id number] #### [facility] [address] [place] [address] Albumin/Globulin [Mass ratio] 1.6 {ratio} Normal 1.1-2.2 [facility] Comment on above: Performed By: #### 2 [id number] #### [facility] [address] [place] [address] Alk Phos 59 Int._Unit/L Normal 21-98 [facility] Comment on above: Performed By: #### 2 [id number] #### [facility] [address] [place] [address] ALT 25 Int._Unit/L Normal 6-46 [facility] Comment on above: Performed By: #### 2 [id number] #### [facility] [address] [place] [address] AST 27 Int._Unit/L Normal 5-43 [facility] Comment on above: Performed By: #### 2 [id number] #### [facility] [address] [place] [address] Bili Direct 0.1 mg/dL Normal 0.0-0.4 [facility] Comment on above: Performed By: #### 2 [id number] #### [facility] [address] [facility] [place] [facility] [place] [address] Bili Indirect 1.0 mg/dL High 0.1-0.9 [facility] Comment on above: Performed By: #### 2 [id number] #### [facility] [address] [place] [address] Bili Total 1.1 mg/dL Normal 0.0-1.1 [facility] Comment on above: Performed By: #### 2 [id number] #### [facility] [address] [place] [address] Globulin (S) [Mass/Vol] 2.7 g/dL Normal 1.4-4.0 [facility] Comment on above: Performed By: #### 2 [id number] #### [facility] [address] [place] [address] Protein [Mass/Vol] 7.1 g/dL Normal 6.0-7.8 [facility] Comment on above: Performed By: #### 2 [id number] #### [facility] [address] [place] [address] Lipase Levelon 04-19-2025 Lipase Lvl 23 unit/L Normal 13-58 [facility] Comment on above: Performed By: #### 2 [id number] #### [facility] [address] [place] [address] UA with Cult Rflxon 04-19-20 25 Color (U) Light-Yellow Normal Yellow [facility] Comment on above: Result Comment: Micr oscopic readings are only performed on those samples that meet specific criteria set forth by [facility]. Performed By: #### 4 [id number] #### [facility] [address] [place] [address] Glucose (U) [Mass/Vol] Negative Normal Negative [facility] Comment on above: Performed By: #### 4 [id number] #### [facility] [address] [place] [address] Ketones Ql (U) Negative Normal Negative [facility] Comment on above: Performed By: #### 4 [id number] #### [facility] [address] [place] [address] UA Blood Negative Normal Negative [facility] Comment on above: Performed By: #### 4 [id number] #### [facility] [address] [place] [address] UA Clarity Clear Normal Clear [facility] Comment on above: Performed By: #### 4 [id number] #### [facility] [address] [place] [address] UA Leuk Est Negative Normal Negative [facility] Comment on above: Performed By: #### 4 [id number] #### [facility] [address] [place] [address] UA Nitrite Negative Normal Negative [facility] Comment on above: Performed By: #### 4 [id number] #### [facility] [address] [place] [address] UA pH 6.5 Invalid Interpretation Code 5.0-9.0 [facility] Comment on above: Performed By: #### 4 [id number] #### [facility] [address] [place] [address] UA Protein Negative Normal Negative [facility] Comment on above: Performed By: #### 4 [id number] #### [facility] [address] [place] [address] UA Spec Grav 1.005 Invalid Interpretation Code 1.005-1.030 [facility] Comment on above: Performed By: #### 4 [id number] #### [facility] [address] [place] [address] UA Urobilinogen Negative Normal Negative [facility] Comment on above: Performed By: #### 4 [id number] #### [facility] [address] [place] [address] Urobilinogen (U) [Mass/Vol] Negative Normal Negative [facility] Comment on above: Performed By: #### 4 [id number] #### [facility] [address] [place] [address] UA Spec Desc Clean Catch Normal [facility] Comment on above: Performed By: #### 4 [id number] #### [facility] [address] [place] [address] eGFRon 04-19-2025 eGFR 58 mL/min/1.73 m2 Low >=59 [facility] Comment on above: Performed By: #### 1 [id number] #### [facility] [address] [place] [address] JONASChuy 04-16-2025 ANES - Attestation signed by [...] 04/16/25 1200 Procedure: TRANSESOPHAGEAL ECHO (HAROON) Location: [facility] Clinical information reviewed: Allergies Meds Physical Exam Airway Mallampati: III Cardiovascular Rhythm: regular Dental Pulmonary Neurological Abdominal Anesthesia Plan ASA 3 other (Conscious sedation) intravenous induction Anesthetic plan and risks discussed with patient. Use of blood products discussed with patient who consented to blood products. Plan discussed with attending and fellow. Additional Equipment Requests Normal [facility] HPon 04-16-2025 HP - Attestation signed by [...] there are no changes to the H&P. [facility] NURSNOTEon 04-16-2025 NURSNOTE Bedside swallow stud y [...] off of unit with all of belongings. [facility] Urinalysis macro (dipstick) panel (U)on 04-07-2025 Bilirubin, [...] Healthcare Nitrite, UA Negative Negative - Positive [facility] pH, UA 6 5 - 9 [facility] Protein, UA Negative Negative - 2000(20) ++++ mg/dL [facility] Spec Grav, UA 1.005 1 - 1.03 [facility] Urobilinogen, UA 0.2 0.2 - 12 mg/dL [facility] 36on 04-02-2025 36 Patient called vik holliday [...] for tricuspid valve. Florecita and Leonardo from [facility] rehab made aware. 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 The plan was to add Jardiance. There is note of her to being evaluated by CT surgery Dr. Sorto regarding candidacy for cardiac surgery and she was deemed high risk. She was also evaluated at [facility] cardiothoracic surgery. Initial workup for her mitral valve disease was started. Spironolactone was changed to half tablet twice a day instead of 1 tablet once a day. She was also recommended to start taking digoxin at night instead of the morning. At visit with pr on 10/16/2023 I increased her carvedilol to [...] She has under (more content not included)... [facility] Office Visiton 03-31-2025 Follow-up visit [id number] Harjit Asencio I 1950 Provider Department Center 03/31/2025 RAFAEL PEDERSEN CECILE [facility] Family History Problem Relation Age of Onset Coronary artery disease Mother Diabetes Mother Coronary artery disease Father Family Status - Relation Status Age at Mother Father Sister Brother Alive Level of Service:10450 [place] OFFICE/OUTPATIENT ESTABLISHED MOD MDM 30 MIN [facility] 36on 02-12-2025 36 Increased to 6.25mg BID [facility] 36on 02-11-2025 36 Patient called reported that she ran out of her carvedilol, discussed with patient to start on Coreg 6.25 mg bid, I also discussed this plan with her primary manager enrollment , patient will have to monitor her blood pressure at home. Yadiel Haines MD PGY-5 tax manager cpa [facility] Telephoneon 02-11-2025 Telephone [phone] Harjit Asencio I 1950 Provider Department Center 02/11/2025 131YADIEL HUTCHISON [facility] Family History Problem Relation Age of Onset Coronary artery disease Mother Diabetes Mother Coronary artery disease Father Family Status - Relation Status Age at Mother Father Sister Brother Alive [facility] Follow-Upon 02-10-2025 Follow-Up [id number] Harjit Asencio I 1950 F Date Provider Department Center 02/10/2025 MuluRAFAEL PRINGLE Family History Problem Relation Age of Onset Coronary artery disease Mother Diabetes Mother Coronary artery disease Father Family Status - Relation Status Age at Mother Father Sister Brother Alive Level of Service:53269 [place] OFFICE/OUTPATIENT ESTABLISHED MOD MDM 30 MIN [facility] 3601-25-2025 36 Rafael, would it be ok for her to hold Eliquis for a few days with her recent MitraClip or does she need to continue and maybe reduce the dose? -Maybe we move forward with Watchman for her after you see her on 02/10? [facility] 36 Rafael, would it be ok for her to hold Eliquis for a few days with her recent MitraClip or does she need to continue and maybe reduce the dose? -Maybe we move forward with Watchman for her after you see her on 02/10? [facility] Follow-Upon 01-23-2025 Follow-Up [id number] Harjit Asencio Joseph 1950 Date Provider Department Center 01/23/2025 MARJ HOWELL CECILE Davies Family History Problem Relation Age of Onset Coronary artery disease Mother Diabetes Mother Coronary artery disease Father Family Status - Relation Status Age at Mother Father Sister Brother Alive Level of Service:92772 [place] OFFICE/OUTPATIENT ESTABLISHED MOD MDM 30 MIN Reason for Visit and Comments: Valve Disorder [3372] Atrial Fibrillation [80] [facility] 01-15-2025 30 The patient is Moderately Unstable [...] and maintained or improved Outcome: Progressing Normal [facility] BASIC METABOLIC PANELon 06-0 Anion gap [Moles/Vol] 13 mmol/L Normal 7-20 [facility] Comment on above: Performed By: #### L [id number] #### [facility] [address] [place] [address] Calcium [Mass/Vol] 8.3 mg/dL Low 8.6-10.3 [facility] Comment on above: Performed By: #### L [id number] #### [facility] ([facility]) [address] [place] [address] Chloride [Moles/Vol] 106 mmol/L Normal 98-107 [facility] Comment on above: Performed By: #### L [id number] #### [facility] ([facility]) [address] [place] [address] CO2 [Moles/Vol] 19 mmol/L Low 21-31 [facility] Comment on above: Performed By: #### L [id number] #### [facility] ([facility]) [address] [place] [address] Creatinine [Mass/Vol] 0.84 mg/dL Normal 0.60-1.20 [facility] Comment on above: Performed By: #### L [id number] #### [facility] ([facility]) [address] [place] [address] GLOMERULAR FILTRATION RATE ML/MIN/1.73 SQ M.PREDICTED 72.0 mL/min/1.73m*2 Normal >60.0 [facility] Comment on above: Result Comment: The [facility]???s estimated glomerular filtration rate (eGFR) will no [...] individuals. Performed By: #### L [id number] #### [facility] ([facility]) [address] [place] [address] Glucose [Mass/Vol] 123 mg/dL High 70-100 [facility] Comment on above: Performed By: #### L [id number] #### [facility] ([facility]) [address] [place] [address] Potassium [Moles/Vol] 4.7 mmol/L Normal 3.5-5.[address] [facility] Comment on above: Performed By: #### L [id number] #### [facility] ([facility]) [address] [place] [address] Sodium [Moles/Vol] 133 mmol/L Low 136-145 [facility] Comment on above: Performed By: #### L [id number] #### [facility] ([facility]) [address] [place] [address] Urea nitrogen [Mass/Vol] 16 mg/dL Normal 7-25 [facility] Comment on above: Performed By: #### L [id number] #### [facility] ([facility]) [address] [place] [address] UREA NITROGEN/CREATININE (MASS RATIO) IN SER/PLAS 19.0 Normal [facility] Comment on above: Performed By: #### L [id number] #### [facility] ([facility]) [address] [place] [address] CBCon 01-15-2025 Erythrocyte distribution width (RBC) [Ratio] 13.4 % Normal 11.5-15.0 [facility] Comment on above: Performed By: #### L [id number] #### [facility] ([facility]) [address] [place] [address] ERYTHROCYTE MEAN CORPUSCULAR HEMOGLOBIN CONCENTRATION (G/DL) BY AUTOMATED 30.1 g/dL Low 32.0-35.0 [facility] Comment on above: Performed By: #### L [id number] #### [facility] ([facility]) [address] [place] [address] Hematocrit (Bld) [Volume fraction] 45.2 % High 36.0-45.0 [facility] Comment on above: Performed By: #### L [id number] #### [facility] ([facility]) [address] [place] [address] Hemoglobin (Bld) [Mass/Vol] 13.6 g/dL Normal 12.0-15.0 [facility] Comment on above: Performed By: #### L [id number] #### [facility] ([facility]) [address] [place] [address] MCH (RBC) [Entitic mass] 30.4 pg Normal 27.0-33.0 [facility] Comment on above: Performed By: #### L [id number] #### [facility] ([facility]) [address] [place] [address] MCV (RBC) [Entitic vol] 100.9 fL High 82.0-98.0 [facility] Comment on above: Performed By: #### L [id number] #### [facility] ([facility]) [address] [place] [address] PLATELETS (10*3/UL) IN BLOOD AUTOMATED COUNT 176 10*3/uL Normal 150-400 [facility] Comment on above: Performed By: #### L [id number] #### [facility] ([facility]) [address] [place] [address] RBC (Bld) [#/Vol] 4.48 10*6/uL Normal 3.80-5.00 [facility] Comment on above: Performed By: #### L [id number] #### [facility] ([facility]) [address] [place] [address] WBC (Bld) [#/Vol] 12.19 10*3/uL High 4.00-10.60 [facility] Comment on above: Performed By: #### L [id number] #### [facility] ([facility]) [address] [place] [address] DSon 01-15-2025 DS Admission Admitted 01/14/2025 for [...] use. Cl (more content not included)... Normal [facility] 30on 01-14-2025 30 The patient is Moderately [...] and behaviors that affect risk of falls [place] fall precautions as indicated by assessment Educate [...] and prevent overall improvement and discharge Normal [facility] 30 The patient is Moderately Unstable - [...] and maintained or improved Outcome: Progressing Normal [facility] BASIC METABOLIC PANELon 06-0 Anion gap [Moles/Vol] 9 mmol/L Normal 7-20 [facility] Comment on above: Performed By: #### L [id number] #### [facility] ([facility]) [address] [place] [address] Calcium [Mass/Vol] 8.5 mg/dL Low 8.6-10.3 [facility] Comment on above: Performed By: #### L [id number] #### [facility] ([facility]) [address] [place] [address] Chloride [Moles/Vol] 107 mmol/L Normal 98-107 [facility] Comment on above: Performed By: #### L [id number] #### [facility] ([facility]) [address] [place] [address] CO2 [Moles/Vol] 26 mmol/L Normal 21-31 [facility] Comment on above: Performed By: #### L [id number] #### [facility] ([facility]) [address] [place] [address] Creatinine [Mass/Vol] 0.80 mg/dL Normal 0.60-1.20 [facility] Comment on above: Performed By: #### L [id number] #### [facility] ([facility]) [address] [place] [address] GLOMERULAR FILTRATION RATE ML/MIN/1.73 SQ M.PREDICTED 76.3 mL/min/1.73m*2 Normal >60.0 [facility] Comment on above: Result Comment: The [facility]???s estimated glomerular filtration rate (eGFR) will no [...] individuals. Performed By: #### L [id number] #### [facility] ([facility]) [address] [place] [address] Glucose [Mass/Vol] 97 mg/dL Normal 70-100 [facility] Comment on above: Performed By: #### L [id number] #### [facility] ([facility]) [address] [place] [address] Potassium [Moles/Vol] 3.9 mmol/L Normal 3.5-5.1 [facility] Comment on above: Performed By: #### L [id number] #### [facility] ([facility]) [address] [place] [address] Sodium [Moles/Vol] 138 mmol/L Normal 136-145 [facility] Comment on above: Performed By: #### L [id number] #### [facility] ([facility]) [address] [place] [address] Urea nitrogen [Mass/Vol] 11 mg/dL Normal 7-25 [facility] Comment on above: Performed By: #### L [id number] #### [facility] [address] [place] [address] UREA NITROGEN/CREATININE (MASS RATIO) IN SER/PLAS 13.8 Normal [facility] Comment on above: Performed By: #### L [id number] #### [facility] [address] [place] [address] CBC WITH AUTO DIFFERENTIALon 01-14-2025 Basophils (Bld) [#/Vol] 0.03 10*3/uL Normal 0.00-0.20 [facility] Comment on above: Performed By: #### L [id number] ####[facility] ([facility])[address] [place] [address] Basophils/100 WBC (Bld) 0.6 % Normal 0.0-1.0 [facility] Comment on above: Performed By: #### L [id number] ####[facility] ([facility])[address] [place] [address] Eosinophils (Bld) [#/Vol] 0.07 10*3/uL Normal 0.00-0.50 [facility] Comment on above: Performed By: #### L [id number] ####[facility] ([facility])[address] [place] [address] Eosinophils/100 WBC (Bld) 1.4 % Normal 0.0-6.0 [facility] Comment on above: Performed By: #### L [id number] ####[facility] ([facility])[address] [place] [address] Erythrocyte distribution width (RBC) [Ratio] 13.4 % Normal 11.5-15.0 [facility] Comment on above: Performed By: #### L [id number] ####[facility] [place] [address] ERYTHROCYTE MEAN CORPUSCULAR HEMOGLOBIN CONCENTRATION (G/DL) BY AUTOMATED 33.0 g/dL Normal 32.0-35.0 [facility] Comment on above: Performed By: #### L [id number] ####[facility] ([facility])[address] [place] [address] Hematocrit (Bld) [Volume fraction] 35.8 % Low 36.0-45.0 [facility] Comment on above: Performed By: #### L [id number] ####[facility] ([facility])[address] [place] [address] Hemoglobin (Bld) [Mass/Vol] 11.8 g/dL Low 12.0-15.0 [facility] Comment on above: Performed By: #### L [id number] ####[facility] ([facility])[address] [place] [address] Immature granulocytes (Bld) [#/Vol] 0.02 10*3/uL Normal 0.00-0.20 [facility] Comment on above: Performed By: #### L [id number] ####[facility] ([facility])[address] [place] [address] Immature granulocytes/100 WBC (Bld) 0.4 % Normal 0.0-1.0 [facility] Comment on above: Performed By: #### L [id number] ####[facility] ([facility])[address] [place] [address] Lymphocytes (Bld) [#/Vol] 1.34 10*3/uL Normal 1.20-4.00 [facility] Comment on above: Performed By: #### L [id number] ####[facility] ([facility])[address] [place] [address] Lymphocytes/100 WBC (Bld) 27.7 % Normal 20.0-45.0 [facility] Comment on above: Performed By: #### L [id number] ####[facility] ([facility])[address] [place] [address] MCH (RBC) [Entitic mass] 31.1 pg Normal 27.0-33.0 [facility] Comment on above: Performed By: #### L [id number] ####[facility] ([facility])[address] [place] [address] MCV (RBC) [Entitic vol] 94.2 fL Normal 82.0-98.0 [facility] Comment on above: Performed By: #### L [id number] ####[facility] ([facility])[address] [place] [address] Monocytes (Bld) [#/Vol] 0.40 10*3/uL Normal 0.10-1.00 [facility] Comment on above: Performed By: #### L [id number] ####[facility] ([facility])[address] [place] [address] Monocytes/100 WBC (Bld) 8.3 % Normal 5.0-12.0 [facility] Comment on above: Performed By: #### L [id number] ####[facility] ([facility])[address] [place] [address] Neutrophils (Bld) [#/Vol] 2.98 10*3/uL Normal 1.60-7.60 [facility] Comment on above: Performed By: #### L [id number] ####[facility] ([facility])[address] [place] [address] Neutrophils/100 WBC (Bld) 61.6 % Normal 40.0-72.0 [facility] Comment on above: Performed By: #### L [id number] ####[facility] ([facility])[address] [place] [address] NRBC (PER 100 WBCS) BY AUTOMATED COUNT 0.0 % Normal 0 [facility] Comment on above: Performed By: #### L [id number] ####[facility] ([facility])[address] [place] [address] PLATELETS (10*3/UL) IN BLOOD AUTOMATED COUNT 178 10*3/uL Normal 150-400 [facility] Comment on above: Performed By: #### L [id number] ####[facility] ([facility])[address] [place] [address] RBC (Bld) [#/Vol] 3.80 10*6/uL Normal 3.80-5.00 [facility] Comment on above: Performed By: #### L [id number] ####[facility] ([facility])[address] [place] [address] WBC (Bld) [#/Vol] 4.84 10*3/uL Normal 4.00-10.60 [facility] Comment on above: Performed By: #### L [id number] ####[facility] ([facility])[address] [place] [address] HPon 01-14-2025 HP H&P reviewed. The patient was examined and there are no changes to the H&P. Normal [facility] POCT GLUCOSE METER UNSOLICIT ED RESULTSon 01-14-2025 Glucose [Mass/Vol] 92 mg/dL Normal 70-105 [facility] Comment on above: Order Comment: Waive d Testing in the ED is performed under the ED CLIA certificate #[id number]. Result Comment: [email or web address] [email or web address] Performed By: #### L [id number] #### [facility] [facility] ([facility]) [address] [place] [address] PROTIME-INRon 01-14-2025 INR IN PPP BY COAGULATION ASSAY 1.08 Normal 0.90-1.10 [facility] Comment on above: Result Comment: ACCC P [...] RANGE. CHEST 1995;[id number]. Performed By: #### L [id number] #### [facility] [address] [place] [address] RUST PROTHROMBIN TIME (PT) IN PPP BY COAGULATION ASSAY 14.0 Seconds Normal 12.3-14.8 [facility] Comment on above: Performed By: #### L [id number] #### [facility] [address] [place] [address] [place] TYPE AND SCREENon 01-14-2025 AB SCREEN Negative Normal [facility] Comment on above: Performed By: #### L [id number] #### [facility] [address] [place] [address] RUST ABO group Nom (Bld) O Normal [facility] Comment on above: Performed By: #### L [id number] #### [facility] [address] [place] [address] RUST RH TYPE IN BLOOD Positive Normal [facility] Comment on above: Performed By: #### L [id number] #### [facility] [address] [place] [address] RUST Orders Onlyon 01-13-2025 Orders Only [id number] Elif,Harjit I 1950 F Date Provider Department Center 01/13/2025 [id number] COLE [facility] PAC [facility] C Family History Problem Relation Age of Onset Coronary artery disease Mother Diabetes Mother Coronary artery disease Father Family Status - Relation Status Age at Mother Father Sister Brother Alive Normal [facility] Orders Onlyon 01-09-2025 Orders Only [id number] Elif,Harjit I 1950 F Date Provider Department Center 01/09/2025 BINACA MIGUEL Family History Problem Relation Age of Onset Coronary artery disease Mother Diabetes Mother Coronary artery disease Father Family Status - Relation Status Age at Mother Father Sister Brother Alive Normal [facility] Orders Onlyon 01-08-2025 Orders Only [id number] Elif,Harjit I 1950 F Date Provider Department Center 01/08/2025 RADHA CHAVEZ [facility] [place] [facility] Family History Problem Relation Age of Onset Coronary artery disease Mother Diabetes Mother Coronary artery disease Father Family Status - Relation Status Age at Mother Father Sister Brother Alive [facility] Documentationon 12-25-2024 Documentation [id number] Harjit Asencio I 1950 F Date Provider Department Center 12/25/2024 325-GABE MARTINEZ [facility] [place] [facility] Family History Problem Relation Age of Onset Coronary artery disease Mother Diabetes Mother Coronary artery disease Father Family Status - Relation Status Age at Mother Father Sister Brother Alive [facility] Telephoneon 12-24-2024 Telephone [id number] Harjit Asencio I 1950 F Date Provider Department Center 12/24/2024 Martha-BIANCA GEORGE [facility] Family History Problem Relation Age of Onset Coronary artery disease Mother Diabetes Mother Coronary artery disease Father Family Status - Relation Status Age at Mother Father Sister Brother Alive [facility] HPon 12-23-2024 [facility] Cardiology [facility] Subjective Harjit Asencio is a [...] insomnia Urethral stricture Urinary frequency 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 The plan was to add Jardiance. There is note of her to being evaluated by CT surgery Dr. Sorto regarding candidacy for cardiac surgery and she was deemed high risk. She was also evaluated at [facility] cardiothoracic surgery. Initial workup for her mitral valve disease was started. Spironolactone was changed to half tablet twice a day instead of 1 tablet once a day. She was also recommended to start taking digoxin at night instead of the morning. At visit with pr on 10/16/2023 I increased her carvedilol to 6.25 mg twice daily. I asked for a cardiopulmonary excise test. After visit with pr on 10/30/2023 I added Jardiance 10 mg daily to optimize GDMT for systolic heart failure. I also started her on amiodarone to attempt rhythm control. Following that she stopped both medications due to side effects. After visit with pr on 12/01/2023 I referred her to [facility]ty [...] are negativ (more content not included)... Normal [facility] Office Visiton 12-23-2024 Follow-up visit [id number] Harjit Asencio I 1950 F Date Provider Department Center 12/23/2024 RAFAEL PEDERSEN CECILE Quinones [facility] Family History Problem Relation Age of Onset Coronary artery disease Mother Diabetes Mother Coronary artery disease Father Family Status - Relation Status Age at Mother Father Sister Brother Alive Level of Service:19583 [place] OFFICE/OUTPATIENT ESTABLISHED HIGH MDM 40 MIN Normal [facility] Urinalysis macro (dipstick) panel (U)on 12-17-2024 Bilirubin, UA Negative Negative - 4(70) +++ mg/dL [facility] Blood, UA Positive Negative - 50 Pedro/mcL [facility] Clarity, UA Clear [facility] Color, UA Yellow [facility] Glucose, UA Negative Negative - 1999(110) ++++ mg/dL [facility] Interpretation and review of laboratory results Abnormal [facility] Ketones, UA Negative Negative - 160(16) ++++ mg/dL [facility] Leukocytes, UA Negative Negative - 500+++ Ghislaine/mcL [facility] Nitrite, UA Negative Negative - Positive [facility] pH, UA 6 5 - 9 [facility] Protein, UA Negative Negative - 1999(20) ++++ mg/dL [facility] Spec Grav, UA 1.005 1 - 1.03 [facility] Urobilinogen, UA 0.2 0.2 - 12 mg/dL [facility] ANESon 11-29-2024 ANES - Attestation signed by [...] 11/29/24 0900 Procedure: TRANSESOPHAGEAL ECHO (HAROON) Location: [facility] Vascular Lab Clinical information reviewed: Allergies Meds OB Status Physical Exam Airway Mallampati: III Cardiovascular Dental Pulmonary Abdominal Anesthesia Plan ASA 3 other (Conscious sedation) intravenous induction Anesthetic plan and risks discussed with patient. Use of blood products discussed with patient who consented to blood products. Plan discussed with attending and fellow. Additional Equipment Requests Normal [facility] BASIC METABOLIC PANELon 11-12 Anion gap [Moles/Vol] 9 mmol/L Normal 7-[address] [facility] Comment on above: Performed By: #### L [id number] #### [facility] ([facility]) [address] [place] [address] Calcium [Mass/Vol] 9.1 mg/dL Normal 8.6-10.3 [facility] Comment on above: Performed By: #### L [id number] #### [facility] ([facility]) [address] [place] [address] Chloride [Moles/Vol] 102 mmol/L Normal 98-107 [facility] Comment on above: Performed By: #### L [id number] #### [facility] ([facility]) [address] [place] [address] CO2 [Moles/Vol] 32 mmol/L High 21-31 [facility] Comment on above: Performed By: #### L [id number] #### [facility] ([facility]) [address] [place] [address] Creatinine [Mass/Vol] 0.85 mg/dL Normal 0.60-1.20 [facility] Comment on above: Performed By: #### L [id number] #### [facility] ([facility]) [address] [place] [address] GLOMERULAR FILTRATION RATE ML/MIN/1.73 SQ M.PREDICTED 71.0 mL/min/1.73m*2 Normal >60.0 [facility] Comment on above: Result Comment: The [facility]???s estimated glomerular filtration rate (eGFR) will no [...] individuals. Performed By: #### L [id number] #### [facility] ([facility]) [address] [place] [address] Glucose [Mass/Vol] 96 mg/dL Normal 70-100 [facility] Comment on above: Performed By: #### L [id number] #### [facility] ([facility] [address] [place] [address] Potassium [Moles/Vol] 4.9 mmol/L Normal 3.5-5.[address] [facility] Comment on above: Performed By: #### L [id number] #### [facility] [address] [place] [address] Sodium [Moles/Vol] 138 mmol/L Normal 136-145 [facility] Comment on above: Performed By: #### L [id number] #### [facility] [address] [place] [address] Urea nitrogen [Mass/Vol] 14 mg/dL Normal 7-25 [facility] Comment on above: Performed By: #### L [id number] #### [facility] [address] [place] [address] UREA NITROGEN/CREATININE (MASS RATIO) IN SER/PLAS 16.5 Normal [facility] Comment on above: Performed By: #### L [id number] #### [facility] [address] [place] [address] CBCon 11-29-2024 Erythrocyte distribution width (RBC) [Ratio] 13.3 % Normal 11.5-15.0 [facility] Comment on above: Performed By: #### L [id number] ####[facility] [place] [address] ERYTHROCYTE MEAN CORPUSCULAR HEMOGLOBIN CONCENTRATION (G/DL) BY AUTOMATED 32.1 g/dL Normal 32.0-35.0 [facility] Comment on above: Performed By: #### L [id number] ####[facility] [place] [address] Hematocrit (Bld) [Volume fraction] 41.8 % Normal 36.0-45.0 [facility] Comment on above: Performed By: #### L [id number] ####[facility] ([facility])[address] [place] [address] Hemoglobin (Bld) [Mass/Vol] 13.4 g/dL Normal 12.0-15.0 [facility] Comment on above: Performed By: #### L [id number] ####[facility] ([facility])[address] [place] [address] MCH (RBC) [Entitic mass] 30.0 pg Normal 27.0-33.0 [facility] Comment on above: Performed By: #### L [id number] ####[facility] ([facility])[address] [place] [address] MCV (RBC) [Entitic vol] 93.7 fL Normal 82.0-98.0 [facility] Comment on above: Performed By: #### Phillip [id number] ####[facility] ([facility])[address] [place] [address] PLATELETS (10*3/UL) IN BLOOD AUTOMATED COUNT 264 10*3/uL Normal 150-400 [facility] Comment on above: Performed By: #### L [id number] ####[facility] ([facility])[address] [place] [address] RBC (Bld) [#/Vol] 4.46 10*6/uL Normal 3.80-5.00 [facility] Comment on above: Performed By: #### L [id number] ####[facility] ([facility])[address] [place] [address] WBC (Bld) [#/Vol] 9.08 10*3/uL Normal 4.00-10.60 [facility] Comment on above: Performed By: #### L [id number] ####[facility] ([facility])[address] [place] [address] HPon 11-29-2024 - Attestation signed by Gabe [...] log. Intraprocedural f (more content not included)... [facility] NURSNOTEon 11-29-2024 NURSNOTE Bedside swallow stud y completed and passed. [facility] NURSNOTE RN educated pt on [...] off of unit with all of belongings. [facility] Telephoneon 11-22-2024 Telephone [phone] Harjit Asencio I 1950 F Date Provider Department Center 11/22/2024 YAEL BRADFORD [facility] [place] [facility] Family History Problem Relation Age of Onset Coronary artery disease Mother Diabetes Mother Coronary artery disease Father Family Status - Relation Status Age at Mother Father [facility] Bacteria identified Cx Nom ( U)on 11-21-2024 Appearance (U) Adequate [facility] Internal identifier for Provider [id number] [facility] Specimen source Nom (Unsp spec) URINE, CLEAN CATCH [facility] STATUS FINAL [facility] Performing Organization Information Site ID: QPT Name: [facility] Address: [address] [place] [id number] Director: Ab Vincent MD [facility] CULTURE, URINE, ROUTINEon CULTURE, URINE, ROUTINE SEE NOTE Normal [facility] Comment on above: Result Comment: CULTURE, URINE, ROUTINE Micro Number: [id number] Test Status: Final Specimen Source: Urine, clean catch Specimen Quality: Adequate Result: No Growth Performed By: #### 3 95 #### [facility] [address], [address] [place] [address] Negative Turner: Ab Vincent MD Urine cultureon 11-21-2024 Bacteria identified Cx Nom (U) SEE NOTE [facility] Comment on above: No Growth Urinalysis macro (dipstick) panel (U)on 11-18-2024 Bilirubin, UA Negative Negative - 4(70) +++ mg/dL [facility] Blood, UA Positive Negative - 50 Pedro/mcL [facility] Clarity, UA Clear [facility] Color, UA Yellow [facility] Glucose, UA Negative Negative - 1999(110) ++++ mg/dL [facility] Interpretation and review of laboratory results Abnormal [facility] Ketones, UA Negative Negative - 160(16) ++++ mg/dL [facility] Leukocytes, UA Trace Negative - 500+++ Ghislaine/mcL [facility] Nitrite, UA Negative Negative - Positive [facility] pH, UA 6.5 5 - 9 [facility] Protein, UA Negative Negative - 1999(20) ++++ mg/dL [facility] Spec Grav, UA 1.01 1 - 1.03 [facility] Urobilinogen, UA 0.2 0.2 - 12 mg/dL [facility] Office Visiton 10-22-2024 Follow-up visit [id number] Harjit Asencio I 1950 F Date Provider Department Center 10/22/2024 PATTY DIANE CECILE Quinones [facility] Family History Problem Relation Age of Onset Coronary artery disease Mother Diabetes Mother Coronary artery disease Father Family Status - Relation Status Age at Mother Father Level of Service:69022 [place] OFFICE/OUTPATIENT ESTABLISHED LOW MDM 20 MIN Normal [facility] Urinalysis macro (dipstick) panel (U)on 08-12-2024 Bilirubin, UA Negative Negative - 4(70) +++ mg/dL [facility] Blood, UA Positive Negative - 50 Pedro/mcL [facility] Clarity, UA Clear [facility] Color, UA Yellow [facility] Glucose, UA Negative Negative - 1999(110) ++++ mg/dL [facility] Interpretation and review of laboratory results Abnormal [facility] Ketones, UA Negative Negative - 160(16) ++++ mg/dL [facility] Leukocytes, UA Negative Negative - 500+++ Ghislaine/mcL [facility] Nitrite, UA Negative Negative - Positive [facility] pH, UA 6 5 - 9 [facility] Protein, UA Negative Negative - 2000(20) ++++ mg/dL [facility] Spec Grav, UA 1.005 1 - 1.03 [facility] Urobilinogen, UA 0.2 0.2 - 12 mg/dL [facility] COMPREHENSIVE METABOLIC PANE [place]em[place] 07-04-2024 Albumin [Mass/Vol] 4.2 g/dL Normal 3.6-5.1 [facility] Comment on above: Order Comment: FASTI NG:NO FASTING: NO Performed By: #### 1 0231 #### [facility] [place] [address] Negative Turner: Ab Vincent MD Albumin/Globulin [Mass ratio] 1.8 {ratio} Normal 1.0-2.5 [facility] Comment on above: Order Comment: FASTI NG:NO FASTING: NO Performed By: #### 1 0231 #### [facility] [place] [address] Negative Turner: Ab Vincent MD ALP [Catalytic activity/Vol] 75 U/L Normal 37-153 [facility] Comment on above: Order Comment: FASTI NG:NO FASTING: NO Performed By: #### 1 0231 #### [facility] [place] [address] Negative Turner: Ab Vincent MD ALT [Catalytic activity/Vol] 27 U/L Normal 6-29 [facility] Comment on above: Order Comment: FASTI NG:NO FASTING: NO Performed By: #### 1 0231 #### [facility] [place] [address] Negative Turner: Ab Vincent MD AST [Catalytic activity/Vol] 27 U/L Normal 10-35 [facility] Comment on above: Order Comment: FASTI NG:NO FASTING: NO Performed By: #### 1 0231 #### [facility] [address], [address] [place] [address] Negative Turner: Ab Vincent MD Bilirubin [Mass/Vol] 0.6 mg/dL Normal 0.2-1.2 [facility] Comment on above: Order Comment: FASTI NG:NO FASTING: NO Performed By: #### 1 0231 #### [facility] [place] [address] Negative Turner: Ab Vincent MD BUN/CREATININE RATIO SEE NOTE: Normal 6-22 [facility] Comment on above: Order Comment: FASTI NG:NO FASTING: NO Result Comment: Not Reported: BUN and Creatinine are within reference range. Performed By: #### 1 0231 #### [facility] [place] [address] Negative Turner: Ab Vincent MD Calcium [Mass/Vol] 9.2 mg/dL Normal 8.6-10.4 [facility] Comment on above: Order Comment: FASTI NG:NO FASTING: NO Performed By: #### 1 0231 #### [facility] [place] [address] Negative Turner: Ab Vincent MD Chloride [Moles/Vol] 104 mmol/L Normal 98-110 [facility] Comment on above: Order Comment: FASTI NG:NO FASTING: NO Performed By: #### 1 0231 #### [facility] [place] [address] Negative Turner: Ab Vincent MD CO2 [Moles/Vol] 27 mmol/L Normal 20-32 [facility] Comment on above: Order Comment: FASTI NG:NO FASTING: NO Performed By: #### 1 0231 #### [facility] [place] [address] Negative Turner: Ab Vincent MD Creatinine [Mass/Vol] 0.87 mg/dL Normal 0.60-1.[address] [facility] Comment on above: Order Comment: FASTI NG:NO FASTING: NO Performed By: #### 1 0231 #### [facility] [place] [address] Negative Turner: Ab Vincent MD GFR/1.73 sq M.predicted among non-blacks MDRD (S/P/Bld) [Vol rate/Area] 69 mL/min/{1.73_m2} Normal > OR = 60 [facility] Comment on above: Order Comment: FASTI NG:NO FASTING: NO Performed By: #### 1 0231 #### [facility] [place] [address] Negative Turner: Ab Vincent MD Globulin (S) [Mass/Vol] 2.3 g/dL Normal 1.9-3.7 [facility] Comment on above: Order Comment: FASTI NG:NO FASTING: NO Performed By: #### 1 0231 #### [facility] [place] [address] Negative Turner: Ab Vincent MD Glucose [Mass/Vol] 94 mg/dL Normal 65-139 [facility] Comment on above: Order Comment: FASTI NG:NO FASTING: NO Result Comment: Non-fasting reference interval Performed By: #### 1 0231 #### [facility] [place] [address] Negative Turner: Ab Vincent MD Potassium [Moles/Vol] 4.6 mmol/L Normal 3.5-5.3 [facility] Comment on above: Order Comment: FASTI NG:NO FASTING: NO Performed By: #### 1 0231 #### [facility] [place] [address] Negative Turner: Ab Vincent MD Protein [Mass/Vol] 6.5 g/dL Normal 6.1-8.1 [facility] Comment on above: Order Comment: FASTI NG:NO FASTING: NO Performed By: #### 1 0231 #### [facility] [place] [address] Negative Turner: Ab Vincent MD Sodium [Moles/Vol] 139 mmol/L Normal 135-146 [facility] Comment on above: Order Comment: FASTI NG:NO FASTING: NO Performed By: #### 1 0231 #### [facility] [address], [address] [place] [address] Negative Turner: Ab Vincent MD Urea nitrogen [Mass/Vol] 12 mg/dL Normal 7-25 [facility] Comment on above: Order Comment: FASTI NG:NO FASTING: NO Performed By: #### 1 0231 #### [facility] [address], [address] [place] [address] Negative Turner: Ab Vincent MD CULTURE, URINE, ROUTINEon CULTURE, URINE, ROUTINE SEE NOTE Normal [facility] Comment on above: Order Comment: FASTI NG:UNKNOWN FASTING: UNKNOWN Result Comment: CULTURE, URINE, ROUTINE Micro Number: [id number] Test Status: Final Specimen Source: Urine Specimen Quality: Adequate Result: No Growth Performed By: #### 3 95 #### [facility] [address], [address] [place] [address] Negative Turner: Ab Vincent MD 37on 07-02-2024 37 *You can take famotidine (Pepcid) 10mg daily as needed for heartburn/acid reflux. If you are still having symptoms, you can take tums or rolaids as needed. -Let cardiology know if chest pain persists Normal [facility] Office Visiton 07-02-2024 Follow-up visit [id number] Harjit Asencio I 1950 F Date Provider Department Center 07/02/2024 Kalyani-MARJ [facility] Family History Problem Relation Age of Onset Coronary artery disease Mother Diabetes Mother Coronary artery disease Father Family Status - Relation Status Age at Mother Father Level of Service:89306 [place] OFFICE/OUTPATIENT ESTABLISHED MOD MDM 30 MIN Reason for Visit and Comments: Atrial Fibrillation [80] Palpitations [465747] Congestive Heart Failure [127] Valve Disorder [3372] Normal [facility] Urinalysis macro (dipstick) panel (U)on 11-18-2024 Bilirubin, UA Negative Negative - 4(70) +++ mg/dL [facility] Blood, UA Negative Negative - 50 Pedro/mcL [facility] Clarity, UA Clear [facility] Color, UA Light Yellow [facility] Glucose, UA Negative Negative - 2000(110) ++++ mg/dL [facility] Interpretation and review of laboratory results Normal [facility] Ketones, UA Negative Negative - 160(16) ++++ mg/dL [facility] Leukocytes, UA Negative Negative - 500+++ Ghislaine/mcL [facility] Nitrite, UA Negative Negative - Positive [facility] pH, UA 6 5 - 9 [facility] Protein, UA Negative Negative - 1999(20) ++++ mg/dL [facility] Spec Grav, UA 1.01 1 - 1.03 [facility] Urobilinogen, UA 0.2 0.2 - 12 mg/dL [facility] CNOVon 06-27-[address] [facility] HPon 06-10-2024 HP [place] Electrophysiology Consult Note [place] Cardiology - [facility] Reason for visit: Afib+ CMP [...] MR and subsequently had a visit with [facility] where evaluation was being done for surgical correction of mitral valve but was noted to have high risk and hence deferred. She also had an evaluation for the same at [place] and thereafter had seen in [...] on file Intimate Partner Violence: Unknown (10/05/2023) [place] Safety & Environment Fear of Current or [...] clear, no (more content not included)... Normal [facility] Orders Onlyon 06-05-2024 Orders Only [id number] Harjit Asencio I 1950 F Date Provider Department Center 06/05/2024 PATTY DIANE [facility] Family History Problem Relation Age of Onset Coronary artery disease Mother Diabetes Mother Coronary artery disease Father Family Status - Relation Status Age at Mother Father Normal [facility] BMPon 06-03-2024 Anion gap [Moles/Vol] 9 mmol/L Normal 6-16 [facility] Comment on above: Performed By: #### 2 [id number] #### [facility] [address] [place] [address] Calcium [Mass/Vol] 9.1 mg/dL Normal 8.9-11.1 [facility] Comment on above: Performed By: #### 2 [id number] #### [facility] [address] [place] [address] Chloride [Moles/Vol] 103 mmol/L Normal 101-111 [facility] Comment on above: Performed By: #### 2 [id number] #### [facility] [address] [place] [address] CO2 [Moles/Vol] 29 mmol/L Normal 21-31 [facility] Comment on above: Performed By: #### 2 [id number] #### [facility] [address] [place] [address] Creatinine [Mass/Vol] 0.8 mg/dL Normal 0.5-1.3 [facility] Comment on above: Performed By: #### 2 [id number] #### [facility] [address] [place] [address] Glucose [Mass/Vol] 89 mg/dL Normal 55-199 [facility] Comment on above: Performed By: #### 2 [id number] #### [facility] [address] [place] [address] Potassium [Moles/Vol] 4.3 mmol/L Normal 3.5-5.3 [facility] Comment on above: Performed By: #### 2 [id number] #### [facility] [address] [place] [address] Sodium [Moles/Vol] 137 mmol/L Normal 135-145 [facility] Comment on above: Performed By: #### 2 [id number] #### [facility] [address] [place] [address] Urea nitrogen [Mass/Vol] 12 mg/dL Normal 5-21 [facility] Comment on above: Performed By: #### 2 [id number] #### [facility] [address] [place] [address] Urea nitrogen/Creatinine [Mass ratio] 15 No Units Normal 10-20 [facility] Comment on above: Performed By: #### 2 [id number] #### [facility] [address] [place] [address] CBC w/Indiceson 06-03-2024 Erythrocyte distribution width (RBC) [Ratio] 14.0 % Normal 10.9-14.2 [facility] Comment on above: Performed By: #### 2 [id number] #### [facility] [address] [place] [address] Hematocrit (Bld) [Volume fraction] 40.6 % Normal 34.0-46.0 [facility] Comment on above: Performed By: #### 2 [id number] #### [facility] [address] [place] [address] Hemoglobin (Bld) [Mass/Vol] 13.7 g/dL Normal 12.0-16.0 [facility] Comment on above: Performed By: #### 2 [id number] #### [facility] [address] [place] [address] MCH (RBC) [Entitic mass] 31.0 pg Normal 27.0-34.0 [facility] Comment on above: Performed By: #### 2 700462 #### [facility] [address] [place] [address] MCHC (RBC) [Mass/Vol] 33.6 g/dL Normal 31.4-36.0 [facility] Comment on above: Performed By: #### 2 [id number] #### [facility] [address] [place] [address] MCV (RBC) [Entitic vol] 92.2 fL Normal 80.0-100.0 [facility] Comment on above: Performed By: #### 2 [id number] #### [facility] [address] [place] [address] Platelet mean volume (Bld) [Entitic vol] 8.3 fL Normal 6.4-10.8 [facility] Comment on above: Performed By: #### 2 [id number] #### [facility] [address] [place] [address] Platelets (Bld) [#/Vol] 198.0 E9/L Normal 150.0-500.0 [facility] Comment on above: Performed By: #### 2 [id number] #### [facility] [address] [place] [address] RBC (Bld) [#/Vol] 4.4 E12/L Normal 4.3-5.9 [facility] Comment on above: Performed By: #### 2 [id number] #### [facility] [address] [place] [address] RBC size Nom (Bld) NORMAL Invalid Interpretation Code [facility] Comment on above: Performed By: #### 2 [id number] #### [facility] [address] [place] [address] WBC corrected for nucl RBC Auto (Bld) [#/Vol] 7.0 E9/L Normal 4.0-11.0 [facility] Comment on above: Performed By: #### 2 [id number] #### [facility] [address] [place] [address] CHEMISTRYOrdered By: SYSTEM SYSTEM on 06-03-2024 Anion [...] Remisol Heme Orders Onlyon 06-03-2024 Orders Only [id number] Harjit Asencio I 1950 F Date Provider Department Center 06/03/2024 [facility] HeartVAS Family History Problem Relation Age of Onset Coronary artery disease Mother Diabetes Mother Coronary artery disease Father Family Status - Relation Status Age at Mother Father Normal [facility] eGFRon 06-03-2024 eGFR 76 mL/min/1.73 m2 Normal >=59 [facility] Comment on above: Performed By: #### 1 [id number] #### [facility] [address] [place] [address] CNOVon 05-07-[address] [facility] CNPTOUTREACHon 05-07-[address] [facility] URINALYSIS, REFLEX MICROSCOP ICon 05-07-2024 Bilirubin Ql (U) Negative Negative [facility] Clarity (Unsp spec) Clear Clear [facility] Color (U) Yellow Yellow [facility] Glucose Test strip (U) [Mass/Vol] Negative Negative [facility] Hemoglobin Ql (U) Negative Negative [facility] Interpretation and review of laboratory results Normal [facility] Ketones Ql (U) Negative Negative [facility] Leukocyte esterase Test strip Ql (U) Negative Negative [facility] Nitrite Ql (U) Negative Negative [facility] pH (U) 6.0 [pH] NINF - 8.5 [facility] Protein (U) [Mass/Vol] Negative Negative [facility] Specific gravity (U) [Rel density] 1.007 1.005 - 1.030 [facility] Urobilinogen Ql (U) 0.2 EU/dL 0.2-1.0 EU/dL [facility] Bilirubin Ql (U) Negative Normal Negative [facility] Comment on above: Order Comment: Speci men Type: URINE SPECIMENOrdering Facility: [facility] Address: [address] [place] [address] Performed By: #### L [id number] ####[facility] LABIA [id number] [place] [address] [place] Clarity (Unsp spec) Clear Normal [facility] Comment on above: Order Comment: Speci men Type: URINE SPECIMENOrdering Facility: [facility] Address: [address] [place] [address] Performed By: #### L [id number] ####[facility] LABCLIA [id number] [place] [address] [place] Color (U) Yellow Normal Yellow [facility] Comment on above: Order Comment: Speci men Type: URINE SPECIMENOrdering Facility: [facility] Address: [address] [place] [address] Performed By: #### L [id number] ####[facility] LABIA [id number] [place] [address] [place] Glucose Test strip (U) [Mass/Vol] Negative Normal Negative [facility] Comment on above: Order Comment: Speci men Type: URINE SPECIMENOrdering Facility: [facility] Address: [address] [place], [place] [address] Performed By: #### L [id number] ####[facility] LABCLIA [id number] [place] [address] [place] Hemoglobin Ql (U) Negative Normal Negative [facility] Comment on above: Order Comment: Speci men Type: URINE SPECIMENOrdering Facility: [facility] Address: [address] [place] [address] Performed By: #### L [id number] ####[facility] LABCLIA [id number] [place] [address] [place] Ketones Ql (U) Negative Normal Negative [facility] Comment on above: Order Comment: Speci men Type: URINE SPECIMENOrdering Facility: [facility] Address: [address] [place], [place] [id number] Performed By: #### L [id number] ####[facility] LABCLIA [id number] [place] [address] [place] Leukocyte esterase Test strip Ql (U) Negative Normal Negative [facility] Comment on above: Order Comment: Speci men Type: URINE SPECIMENOrdering Facility: [facility] Address: [address] [place] [address] Performed By: #### L [id number] ####[facility] LABCLIA [id number] [place] [address] [place] Nitrite Ql (U) Negative Normal Negative [facility] Comment on above: Order Comment: Speci men Type: URINE SPECIMENOrdering Facility: [facility] Address: [address] [place], [place] [address] Performed By: #### L [id number] ####[facility] LABCLIA [id number] [place] [address] [place] pH (U) 6.0 [pH] Normal <8.5 [facility] Comment on above: Order Comment: Speci men Type: URINE SPECIMENOrdering Facility: [facility] Address: [address] [place] [address] Performed By: #### L [id number] ####[facility] LABCLIA [id number] [place] [address] [place] Protein (U) [Mass/Vol] Negative Normal Negative [facility] Comment on above: Order Comment: Speci men Type: URINE SPECIMENOrdering Facility: [facility] Address: [address] [place] [address] Performed By: #### L [id number] ####[facility] LABIA [id number] [place] [address] [place] Specific gravity (U) [Rel density] 1.007 Normal 1.005-1.030 [facility] Comment on above: Order Comment: Speci men Type: URINE SPECIMENOrdering Facility: [facility] Address: [address] [place] [address] Performed By: #### L [id number] ####[facility] LABIA [id number] [place] [address] [place] Urobilinogen Ql (U) 0.2 EU/dL Normal 0.2-1.0 EU/dL [facility] Comment on above: Order Comment: Speci men Type: URINE SPECIMENOrdering Facility: [facility] Address: [address] [place] [address] Performed By: #### L [id number] ####[facility] LABIA [id number] [place] [address] [place] C Urineon 11-24-2023 [...] Locations R1: This test was performed at: [facility], [address] [place] [address], [address] , , [facility] Comment on above: Performed By: #### 2 [id number], [id number], [id number], [id number], [id number], [id number] #### [facility] [address] [place] [address] BB Draw & Holdon 11-23-2023 BB D&H Sample drawn for Blood Ba [facility] Comment on above: Performed By: #### 1 [id number] #### [facility] [address] [place] [address] Abdomen/Pelvis w/ Contras ton 11-23-2023 CT [...] Oral contrast amount in ml's: 0 Normal [facility] ED Note-Physicianon 11-23-19 ED Note-Physician Basic [...] imaging. No significant abnormalities. Patient is very nmto-ode-pdwot with her symptoms and now states to [...] day(s), # 100 mL, Refills(s) 0, Pharmacy: [facility], 165, cm, 11/22/23 16:28:00 EDT, Height/Length [...] days 11/25/[address] [place] [address]- Additional Instructions: Patient Education Constipation, Adult, Ibnf-yb-Atuj Attestation I performed a substantive part of [...] EC T (more content not included)... Normal [facility] Comment on above: Result Comment: Elec tronically Signed By: Edel Zhou PA-C\.br\Date and Time Signed: 11/22/23 20:45 EDT\.br\Electronically Co-Signed By: Jayson Calloway DO\.br\Date and Time Co-Signed: 11/23/23 07:15 EDT CBC w/ Auto Diffon 4 Basophils/100 WBC (Bld) 1.1 % Normal 0.0-2.0 [facility] Comment on above: Performed By: #### 1 [id number] #### [facility] [address] [place] [address] Basophils/Leukocytes Auto (Bld) [Pure # fraction] 0.1 E9/L Normal 0.0-0.2 [facility] Comment on above: Performed By: #### 1 [id number] #### [facility] [address] [place] [address] Eosinophils (Bld) [#/Vol] 0.0 E9/L Normal 0.0-0.5 [facility] Comment on above: Performed By: #### 1 [id number] #### [facility] [address] [place] [address] Eosinophils/100 WBC (Bld) 0.2 % Normal 0.0-8.0 [facility] Comment on above: Performed By: #### 1 [id number] #### [facility] [address] [place] [address] Erythrocyte distribution width (RBC) [Ratio] 14.7 % High 10.9-14.2 [facility] Comment on above: Performed By: #### 1 [id number] #### [facility] [address] [place] [address] Hematocrit (Bld) [Volume fraction] 42.0 % Normal 34.0-46.0 [facility] Comment on above: Performed By: #### 1 [id number] #### [facility] [address] [place] [address] Hemoglobin (Bld) [Mass/Vol] 13.9 g/dL Normal 12.0-16.0 [facility] Comment on above: Performed By: #### 1 [id number] #### [facility] [address] [place] [address] Lymphocytes (Bld) [#/Vol] 2.1 E9/L Normal 1.0-4.0 [facility] Comment on above: Performed By: #### 1 [id number] #### [facility] [address] [place] [address] Lymphocytes/100 WBC (Bld) 25.6 % Normal 14.0-50.0 [facility] Comment on above: Performed By: #### 1 [id number] #### [facility] [address] [place] [address] MCH (RBC) [Entitic mass] 30.3 pg Normal 27.0-34.0 [facility] Comment on above: Performed By: #### 1 [id number] #### [facility] [address] [place] [address] MCHC (RBC) [Mass/Vol] 33.1 g/dL Normal 31.4-36.0 [facility] Comment on above: Performed By: #### 1 [id number] #### [facility] [address] [place] [address] MCV (RBC) [Entitic vol] 91.5 fL Normal 80.0-100.0 [facility] Comment on above: Performed By: #### 1 [id number] #### [facility] [address] [place] [address] Monocytes (Bld) [#/Vol] 0.5 E9/L Normal 0.2-1.0 [facility] Comment on above: Performed By: #### 1 [id number] #### [facility] [address] [place] [address] Neutrophils (Bld) [#/Vol] 5.5 E9/L Normal 2.0-7.5 [facility] Comment on above: Performed By: #### 1 5098400 #### [facility] [address] [place] [address] Neutrophils/100 WBC (Bld) 66.8 % Normal 36.0-75.0 [facility] Comment on above: Performed By: #### 1 1359952 #### [facility] [address] [place] [address] Platelet mean volume (Bld) [Entitic vol] 8.3 fL Normal 6.4-10.8 [facility] Comment on above: Performed By: #### 1 [id number] #### [facility] [address] [place] [address] Platelets (Bld) [#/Vol] 250.0 E9/L Normal 150.0-500.0 [facility] Comment on above: Performed By: #### 1 [id number] #### [facility] [address] [place] [address] RBC (Bld) [#/Vol] 4.6 E12/L Normal 4.3-5.9 [facility] Comment on above: Performed By: #### 1 5496564 #### [facility] [address] [place] [address] WBC corrected for nucl RBC Auto (Bld) [#/Vol] 8.3 E9/L Normal 4.0-11.0 [facility] Comment on above: Performed By: #### 1 [id number] #### [facility] [address] [place] [address] CHEMISTRYOrdered By: SYSTEM SYSTEM on 11-22-2023 Albumin [...] 11-22-2023 Albumin [Mass/Vol] 4.6 g/dL Normal 3.3-5.0 [facility] Comment on above: Performed By: #### 1 [id number] #### [facility] [address] [place] [address] Albumin/Globulin (S) [Mass conc ratio] 1.8 Normal 1.1-2.2 [facility] Comment on above: Performed By: #### 1 [id number] #### [facility] [address] [place] [address] ALP [Catalytic activity/Vol] 90 Int._Unit/L Normal 21-98 [facility] Comment on above: Performed By: #### 1 [id number] #### [facility] [address] [place] [address] ALT No additional P-5'-P [Catalytic activity/Vol] 41 Int._Unit/L Normal 6-46 [facility] Comment on above: Performed By: #### 1 [id number] #### [facility] [address] [place] [address] Anion gap [Moles/Vol] 13 mmol/L Normal 6-16 [facility] Comment on above: Performed By: #### 1 [id number] #### [facility] [address] [place] [address] AST [Catalytic activity/Vol] 30 Int._Unit/L Normal 5-43 [facility] Comment on above: Performed By: #### 1 [id number] #### [facility] [address] [place] [address] Bilirubin [Mass/Vol] 1.0 mg/dL Normal 0.0-1.1 [facility] Comment on above: Performed By: #### 1 [id number] #### [facility] [address] [place] [address] Calcium [Mass/Vol] 10.0 mg/dL Normal 8.9-11.1 [facility] Comment on above: Performed By: #### 1 7727943 #### [facility] [address] [place] [address] Chloride [Moles/Vol] 99 mmol/L Low 101-111 [facility] Comment on above: Performed By: #### 1 [id number] #### [facility] [address] [place] [address] CO2 [Moles/Vol] 27 mmol/L Normal 21-31 [facility] Comment on above: Performed By: #### 1 9606457 #### [facility] [address] [place] [address] Creatinine [Mass/Vol] 1.0 mg/dL Normal 0.5-1.3 [facility] Comment on above: Performed By: #### 1 [id number] #### [facility] [address] [place] [address] Globulin (S) [Mass/Vol] 2.6 g/dL Normal 1.4-4.0 [facility] Comment on above: Performed By: #### 1 [id number] #### [facility] [address] [place] [address] Glucose [Mass/Vol] 114 mg/dL Normal 55-199 [facility] Comment on above: Performed By: #### 1 [id number] #### [facility] [address] [place] [address] Potassium [Moles/Vol] 4.2 mmol/L Normal 3.5-5.3 [facility] Comment on above: Performed By: #### 1 [id number] #### [facility] [address] [place] [address] Protein [Mass/Vol] 7.2 g/dL Normal 6.0-7.8 [facility] Comment on above: Performed By: #### 1 [id number] #### [facility] [address] [place] [address] Sodium [Moles/Vol] 135 mmol/L Normal 135-145 [facility] Comment on above: Performed By: #### 1 [id number] #### [facility] [address] [place] [address] Urea nitrogen [Mass/Vol] 20 mg/dL Normal 5-21 [facility] Comment on above: Performed By: #### 1 [id number] #### [facility] [address] [place] [address] Urea nitrogen/Creatinine [Mass ratio] 20 No Units Normal 10-20 [facility] Comment on above: Performed By: #### 1 [id number] #### [facility] [address] [place] [address] COAGULATIONOrdered By: Elena Dinero on 11-22-2023 aPTT Coag (PPP) [Time] 41.3 s High 25.1 - 36.5 second(s) [facility] Auto Coag Comment on above: Interpretive Data: [...] same coagulation reagent and instrumentation as [facility]. Currently there are no coagulation studies available worldwide for children to 14 days, and no normal ranges. Heparin therapeutic range (represented by Anti-Factor Xa activity of 0.2 - 0.4 U/mL) corresponds to PTT of 56.6 - 109.0 sec. INR Coag (PPP) [Relative time] 1.37 {INR} Invalid Interpretation Code [facility] Comment on above: Interpretive Data: I NR results are specifically intended to assess patients stabilized on long-term Anticoagulation therapy suggested INR s Less Intensive Anticoagulation 2.0 3.0 Conventional Range 3.0 4.5 PT Coag (PPP) [Time] 15.4 s High 9.4 - 1 2.5 second(s) [facility] Comment on above: Interpretive Data: [...] same coagulation reagent and instrumentation as [facility]. Currently there are no coagulation studies available worldwide for children to 14 days, and no normal ranges. Consent for Treatmenton 11-12 Consent for Treatment [id number] .00TIFF Normal [facility] Discharge Instructionson Discharge Instructions [id number] 1.00TIFF Normal [facility] ED Clinical Summaryon 2023 ED Clinical Summary [place] [id number] ED Clinical Summary Person Information Name: HARJIT ASENCIO I Patricia/[facility] Age: 73 Years : 1950 Sex: Female Language: Trinidadian PCP: Hannah Brian MD Marital Status: Visit [...] 11/22/2023 20:57:39 11/22/2023 20:57:39 11/22/2023 20:57:39 ADDRESS: [address] [place] [address] [address] [place] [phone] PHYS DOC NOTES: MEDICAL INFORMATION: Prescriptions Given: New Medications [facility], [address] [place] [phone], [phone] lactulose (lactulose 10 g/15 mL Oral Syrup) [...] 0. PATIENT EDUCATION INFORMATION: Instructions: Constipation, Adult, Zjyc-cc-Pszw Follow up: With: Address: When: Hannah [place] [address] In 3 days 11/25/2023 DIAGNOSIS: 1:Constipation Normal [facility] ED Patient Education Noteon 11-22-2023 ED [...] in fat and sugar, such as: ? Vincentian fries. ? Hamburgers. ? Cookies. ? Candy. ? Soda. ? Drink enough fluid to keep your pee (urine) pale yellow. General instructions ? Exercise regularly or as told by your doctor. Try to do 150 minutes of exercise each week. ? Go to the restroom when you feel like you need to poop. Do not hold it in. ? Take vlgv-rqm-tjowniv and prescription medicines only as told by [...] your pee (urine) pale yellow. ? Take wtay-bmf-qzbllzq and prescription medicines only as told by your doctor. These include any fiber supplements. This information is not intended to replace advice given to you by your health care provider. Make sure you discuss any questions you have with your health care provider. Document Revised: 06/17/2020 Document Reviewed: 06/17/2020 Elsevier Patient Education ? 2022 [employer] Normal [facility] ED Patient Summaryon 024 ED Patient Summary [address] [address] Patient Discharge Instructions Person Information Name: HARJIT ASENCIO I Age: 73 Years Arrival Date: 11/22/2023 16:16:41 Discharge Diagnosis: 1:Constipation Primary Care Physician: Hannah Brian MD Provider Information Primary Provider: Jayson Calloway DO [employer] Administrator:None The exam and treatment you received in the Emergency Department were for an urgent problem and are not intended as complete care. It is important that you follow up with a doctor, nurse practitioner, or physician?s research study assistant for ongoing care. If your symptoms [...] When: Hannah Brian [place] [address] In 3 days 11/25/2023 In the event that this physician does not participate in your insurance network, please consult with your insurance company to find a nearby participating provider. Patient Education Materials: Constipation, Adult, Oght-mu-Gsek A MESSAGE TO ALL PATIENTS REGARDING OPIOIDS PRESCRIPTION OPIOIDS: WHAT YOU NEED TO KNOW Prescription opioids can be used to help relieve rjsvhdkq-zf-pcboyr pain and are often prescribed following a [...] struggling with addiction, tell your health care transitions nurse and ask for guidance or call [facility]?S National Helpline at 1-973-674-OEHT. u Source: [place] Department of Health and Human S (more content not included)... Normal [facility] HEMATOLOGYOrdered By: SYSTEM SYSTEM on 11-22-2023 [...] 11-22-2023 Magnesium [Mass/Vol] 2.0 mg/dL Normal 1.3-2.4 [facility] Comment on above: Performed By: #### 1 [id number] #### [facility] [address] [place] [address] PT & PTTon 11-22-2023 aPTT Coag (PPP) [Time] 41.3 second(s) High 25.1-36.5 [facility] Comment on above: Result Comment: Para [...] same coagulation reagent and instrumentation as [facility]. Currently there are no coagulation studies available worldwide for children to 14 days, and no normal ranges. Heparin therapeutic range (represented by Anti-Factor Xa activity of 0.2 - 0.4 U/mL) corresponds to PTT of 56.6 - 109.0 sec. Performed By: #### 1 [id number] #### [facility] [address] [place] [address] INR Coag (PPP) [Relative time] 1.37 {INR} Invalid Interpretation Code [facility] Comment on above: Result Comment: INR results are specifically intended to assess patients stabilized on long-term Anticoagulation therapy suggested INR?s ?Less Intensive Anticoagulation? 2.0 ? 3.0 Conventional Range 3.0 ? 4.5 Performed By: #### 1 [id number] #### [facility] [address] [place] [address] PT Coag (PPP) [Time] 15.4 second(s) High 9.4-12.5 [facility] Comment on above: Result Comment: 15 [...] same coagulation reagent and instrumentation as [facility]. Currently there are no coagulation studies available worldwide for children to 14 days, and no normal ranges. Performed By: #### 1 [id number] #### [facility] [address] [place] [address] RAD - Preliminary Cat Scan R eporton 11-22-2023 RAD - Preliminary Cat Scan Report [id number]# 1.00TIFF Normal [facility] Troponin 0 Hr.on 11-22-2023 Troponin 12.30 pg/mL Normal 10.10-27.10 [facility] Comment on above: Result Comment: The 95% CI (Confidence Interval) PPV (Positive Predictive Value) for myocardial infarction in females is 38 pg/mL, in males 51 pg/mL. The results should be used in conjunction with clinical conditions of myocardial infarction. (Access High Sensitivity Troponin I Instructions For Use, Marlys [place], March 2018) Performed By: #### 1 [id number] #### [facility] [address] [place] [address] UA with Cult Rflxon 11-22-19 24 Bilirubin Ql (U) Negative Normal Negative [facility] Comment on above: Performed By: #### 2 357530, 99434277, 0505861, 5630424, 0777043, 2923844 #### [facility] [address] [place] [address] Clarity (U) Clear Normal Clear [facility] Comment on above: Performed By: #### 2 928986, 65621842, 6566084, 6833266, 0931940, 6196248 #### [facility] [address] [place] [address] Color (U) Colorless Abnormal Yellow [facility] Comment on above: Result Comment: Micr oscopic readings are only performed on those samples that meet specific criteria set forth by [facility]. Performed By: #### 2 953655, 02101423, 6695820, 9400294, 6527646, 6373545 #### [facility] [address] [place] [address] Epithelial cells.squamous Auto (Urine sed) [#/Area] 0-2 Normal 0-2 [facility] Comment on above: Performed By: #### 2 257077, 26143748, 3477135, 6497717, 4112610, 9720650 #### [facility] [address] [place] [address] Glucose Ql (U) Negative Normal Negative [facility] Comment on above: Performed By: #### 2 804574, 00852200, 5534602, 8948579, 4571939, 4709706 #### [facility] [address] [place] [address] Hemoglobin Auto test strip (U) [Mass/Vol] Negative Normal Negative [facility] Comment on above: Performed By: #### 2 722292, 95296783, 3486531, 3885320, 0631444, 1691342 #### [facility] [address] [place] [address] Ketones Auto test strip Ql (U) Negative Normal Negative [facility] Comment on above: Performed By: #### 2 342176, 60554519, 4666454, 5050865, 9527223, 6178306 #### [facility] [address] [place] [address] Leukocyte esterase Auto test strip Ql (U) 75 Ghislaine/uL Abnormal Negative [facility] Comment on above: Performed By: #### 2 128025, 37373130, 2252567, 8025649, 6938413, 8275458 #### [facility] [address] [place] [address] Mucus Auto Ql (U) Negative Normal Negative [facility] Comment on above: Performed By: #### 2 108088, 38189492, 6307941, 7251852, 6774371, 4519305 #### [facility] [address] [place] [address] Nitrite Auto test strip Ql (U) Negative Normal Negative [facility] Comment on above: Performed By: #### 2 712822, 28428695, 8876508, 2247760, 9225629, 8119954 #### [facility] [address] [place] [address] pH (U) 7.0 [pH] Invalid Interpretation Code 5.0-9.0 [facility] Comment on above: Performed By: #### 2 342746, 95961445, 3005737, 9598135, 5286378, 2774439 #### [facility] [address] [place] [address] Protein Ql (U) Negative Normal Negative [facility] Comment on above: Performed By: #### 2 754498, 59649397, 9848317, 8437725, 1970437, 1065734 #### [facility] [address] [place] [address] RBC Ql (U) 0-3 Normal 0-3 [facility] Comment on above: Performed By: #### 2 410396, 83277468, 0912019, 0701844, 2771895, 1038357 #### [facility] [address] [place] [address] Specific gravity (U) [Rel density] 1.004 Invalid Interpretation Code 1.005-1.030 [facility] Comment on above: Performed By: #### 2 709416, 29132814, 7568641, 6370123, 8277697, 2229858 #### [facility] [address] [place] [address] Urobilinogen (U) [Mass/Vol] Negative Normal Negative [facility] Comment on above: Performed By: #### 2 191877, 16898777, 3763920, 3528499, 5261160, 1574351 #### [facility] [address] [place], [place] [address] WBC Auto (Urine sed) [#/Area] 0-5 Normal 0-5 [facility] Comment on above: Performed By: #### 2 041437, 94749870, 4060533, 5975048, 0837230, 5121128 #### [facility] [address] [place] [address] Type of Urine collection method Clean Catch Normal [facility] Comment on above: Performed By: #### 2 459796, 03447510, 1116331, 8608240, 7277810, 6745201 #### [facility] [address] [place] [address] URINALYSISOrdered By: SYSTEM SYSTEM on 11-22-2023 Bilirubin [...] that meet specific criteria set forth by [facility]. Epithelial cells.squamous Auto (Urine sed) [...] Clean Catch (11/22/23 4:36 PM) Normal [facility] UA Auto SS XR Abdomen 1 Viewon [...] mGy = na DAP = na Normal [facility] eGFRon 11-22-2023 eGFR 58 mL/min/1.73 m2 Low >=59 [facility] Comment on above: Order Comment: Order added by Discern Expert. Performed By: #### 1 5519559 #### [facility] [address] [place] [address] Consent for Treatmenton Consent for Treatment [id number]#1 .00TIFF Normal [facility] US Abdomen, Limitedon 2023 US Abdomen, [...] MD Transcribed by: ARAVIND Technologist: JOSE Doty [facility] Physician Orderon 11-09-2023 Physician Order [id number]#1 .00TIFF Normal [facility] CNOVon 10-16-[address] [facility] CNPNon 10-16-[address] [facility] UA DIP, URINE (POC)on 2023 BILIRUBIN UA (POCT) Negative Negative [facility] CLARITY UA (POCT) Clear [facility] COLOR UA (POCT) Yellow [facility] GLUCOSE UA (POCT) Negative Negative mg/dL [facility] Hemoglobin Ql (U) Trace-lysed Abnormal Negative [facility] KETONE UA (POCT) Negative Negative mg/dL [facility] LEUKOCYTES UA (POCT) Large Abnormal Negative [facility] NITRITE UA (POCT) Negative Negative [facility] PH UA (POCT) 6.0 4.5 - 8.0 [facility] Protein Ql (U) Negative Negative mg/dL [facility] SPECIFIC GRAVITY UA (POCT) 1.010 1.005 - 1.030 [facility] UROBILINOGEN UA (POCT) 0.2 E.U./dL Normal E.U./dL [facility] ED Note-Physicianon 10-06-19 ED Note-Physician Basic Information [...] Constipation, unspecified) (more content not included)... Normal [facility] Comment on above: Result Comment: Elec tronically Signed By: Nica Knox PA-C\.br\Date and Time Signed: 10/05/23 21:57 EST\.br\Electronically Co-Signed By: Koby Masterson DO.br\Date and Time Co-Signed: 10/06/23 00:54 EST Consent for Treatmenton 09-15 Consent for Treatment [id number]#1 .00TIFF Normal [facility] Discharge Instructionson Discharge Instructions [id number]# 1.00TIFF Normal [facility] ED Clinical Summaryon 2023 ED Clinical Summary [place] [id number] ED Clinical Summary Person Information Name: HARJIT ASENCIO I Patricia/[facility] Age: 73 Years : 1950 Sex: Female Language: Trinidadian PCP: Peggy Nazario MD Marital Status: Visit [...] 10/05/2023 21:56:34 10/05/2023 21:56:34 10/05/2023 21:56:34 ADDRESS: [address] [place] [address] [address] [facility] [id number] PHYS DOC NOTES: MEDICAL INFORMATION: Prescriptions Given: Medications to Continue Taking That Have Changed [facility] [address], [address] [place] [id number], [phone] START: carvedilol (carvedilol 3.125 mg Tab) 1 [...] 0. PATIENT EDUCATION INFORMATION: Instructions: Constipation, Adult, Tayy-bv-Cojm; Gastroesophageal Reflux Disease, Adult, Tasy-vy-Fpqi; Abdominal Pain, Adult, Sgny-gz-Yjtq Follow up: With: Address: When: Johan HENRIQUEZ [address] [employer] [address] [place] [id number] [phone] [employer]™ (1) In 3 days 10/08/2023 With: Address: When: Peggy Nazario [address] [place] [address] [employer]™ (1) In 3 days DIAGNOSIS: 1:Constipation Normal [facility] ED Patient Education Noteon 10-05-2023 ED [...] in fat and sugar, such as: ? Vincentian fries. ? Hamburgers. ? Cookies. ? Candy. ? Soda. ? Drink enough fluid to keep your pee (urine) pale yellow. General instructions ? Exercise regularly or as told by your doctor. Try to do 150 minutes of exercise each week. ? Go to the restroom when you feel like you need to poop. Do not hold it in. ? Take hzoa-hps-ujrtmeo and prescription medicines only as told by [...] your pee (urine) pale yellow. ? Take iosa-iuu-zwzunjf and prescription medicines only as told by your doctor. These include any fiber supplements. This information is not intended to replace advice given to you by your health care provider. Make sure you discuss any questions you have with your health care provider. Document Revised: 06/17/2020 Document Reviewed: 06/17/2020 [employer] Patient Education ? 2022 [employer] Gastroesophageal Reflux Disease, Adult Gastroesophageal reflux [...] ? Hors (more content not included)... Normal [facility] ED Patient Summaryon 024 ED Patient Summary [place] [id number] Patient Discharge Instructions Person Information Name: HARJIT ASENCIO I Age: 73 Years Arrival Date: 10/05/2023 17:54:10 Discharge Diagnosis: 1:Constipation Primary Care Physician: Aravind MCMAHON, Peggy Mcmillan Provider Information Primary Provider: Koby Masterson DO [employer] Administrator:None The exam and treatment you received in the Emergency Department were for an urgent problem and are not intended as complete care. It is important that you follow up with a doctor, nurse practitioner, or physician?s research study assistant for ongoing care. If your symptoms [...] Instructions: With: Address: When: Johan HENRIQUEZ [address] [place] [phone] [employer]™ (1) In 3 days 10/08/2023 With: Address: When: Peggy Nazario [address] [place] [id number] [employer]™ (1) In 3 days In the event that this physician does not participate in your insurance network, please consult with your insurance company to find a nearby participating provider. Patient Education Materials: Constipation, Adult, Lqun-ip-Hugc; Gastroesophageal Reflux Disease, Adult, Vfrf-ru-Bszc; Abdominal Pain, Adult, Heaz-vn-Hksq A MESSAGE TO ALL PATIENTS REGARDING OPIOIDS PRESCRIPTION OPIOIDS: WHAT YOU NEED TO KNOW Prescription opioids can be used to help relieve quojcurb-us-iqnilr pain and are often prescribed following a [...] ? If (more content not included)... Normal [facility] CNPNon 10-02-[address] [facility] Echocardiographyon 4 Echocardiography [id number]#1 .00TIFF Normal [facility] Outside Cardiovascularon Outside Cardiovascular [id number]#1 .00TIFF Normal [facility] Outside Cardiovascular [id number]#1 .00TIFF Normal [facility] Outside Cardiovascular [id number]#1 .00TIFF Normal [facility] Outside Operativeon 09-27-19 24 Outside Operative [id number]#1 .00TIFF Normal [facility] Outside Operative [id number]#1 .00TIFF Normal [facility] Outside Radiologyon 09-27-19 24 Outside Radiology [id number]#1 .00TIFF Normal [facility] Outside Radiology [id number]#1 .00TIFF Normal [facility] CBC panel Auto (Bld)on 09-26 Erythrocyte distribution width (RBC) [Ratio] 13.2 % Normal 11.5-15.0 [facility] Comment on above: Order Comment: Speci men Type: BLOOD SPECIMENOrdering Facility: [facility] Address: [address] [place] [address] Performed By: #### 5 8410-2 ####[facility] LABCLIA [id number] [place] [address] [place] Hematocrit (Bld) [Volume fraction] 38.1 % Normal 36.0-46.0 [facility] Comment on above: Order Comment: Speci men Type: BLOOD SPECIMENOrdering Facility: [facility] Address: [address] [place] [address] Performed By: #### 5 8410-2 ####[facility] LABCLIA [id number] [place] [address] [place] Hemoglobin (Bld) [Mass/Vol] 12.2 g/dL Normal 11.5-15.5 [facility] Comment on above: Order Comment: Speci men Type: BLOOD SPECIMENOrdering Facility: [facility] Address: [address] [place] [address] Performed By: #### 5 8410-2 ####[facility] LABIA [id number] [place] [address] [place] MCH (RBC) [Entitic mass] 29.5 pg Normal 26.0-34.0 [facility] Comment on above: Order Comment: Speci men Type: BLOOD SPECIMENOrdering Facility: [facility] Address: [address] [place] [address] Performed By: #### 5 8410-2 ####[facility] LABIA [id number] [place] [address] [place] MCHC (RBC) [Mass/Vol] 32.0 g/dL Normal 30.5-36.0 [facility] Comment on above: Order Comment: Speci men Type: BLOOD SPECIMENOrdering Facility: [facility] Address: [address] [place] [address] Performed By: #### 5 8410-2 ####[facility] LABIA [id number] [place] [address] [place] MCV (RBC) [Entitic vol] 92.0 fL Normal 80.0-100.0 [facility] Comment on above: Order Comment: Speci men Type: BLOOD SPECIMENOrdering Facility: [facility] Address: [address] [place] [address] Performed By: #### 5 8410-2 ####[facility] LABIA [id number] [place] [address] [place] Nucleated RBC (Bld) [#/Vol] 10*3/uL Normal <0.01 [facility] Comment on above: Order Comment: Speci men Type: BLOOD SPECIMENOrdering Facility: [facility] Address: [address] [place] [address] Performed By: #### 5 8410-2 ####[facility] LABCLIA [id number] [place] [address] [place] Platelet mean volume (Bld) [Entitic vol] 10.5 fL Normal 9.0-12.7 [facility] Comment on above: Order Comment: Speci men Type: BLOOD SPECIMENOrdering Facility: [facility] Address: [address] [place] [address] Performed By: #### 5 8410-2 ####[facility] LABCLIA [id number] [place] [address] [place] Platelets (Bld) [#/Vol] 195 10*3/uL Normal 150-400 [facility] Comment on above: Order Comment: Speci men Type: BLOOD SPECIMENOrdering Facility: [facility] Address: [address] [place] [address] Performed By: #### 5 8410-2 ####[facility] LABIA [id number] [place] [address] [place] RBC (Bld) [#/Vol] 4.14 10*6/uL Normal 3.90-5.20 [facility] Comment on above: Order Comment: Speci men Type: BLOOD SPECIMENOrdering Facility: [facility] Address: [address] [place] [address] Performed By: #### 5 8410-2 ####[facility] LABCLIA [id number] [place] [id number] [place] WBC (Bld) [#/Vol] 6.03 10*3/uL Normal 3.70-11.00 [facility] Comment on above: Order Comment: Speci men Type: BLOOD SPECIMENOrdering Facility: [facility] Address: [address] [place] [address] Performed By: #### 5 8410-2 ####[facility] LABIA [id number] [place] [address] [place] [facility] CBC PNL BLD AUTOon 09-26 [facility] NRBC # BLD AUTO <0.01 NINF [facility] PLATELET # BLD AUTO 195 [facility] PMV BLD AUTO 10.5 fL 9.0 - 12.7 fL [facility] WBC # BLD AUTO 6.03 [facility] Erythrocyte distribution width (RBC) [Ratio] 13.2 % 11.5 - 15.0 % [facility] Hematocrit (Bld) [Volume fraction] 38.1 % 36.0 - 46.0 % [facility] Hemoglobin (Bld) [Mass/Vol] 12.2 g/dL 11.5 - 15.5 g/dL [facility] MCH (RBC) [Entitic mass] 29.5 pg 26.0 - 34.0 pg [facility] MCHC (RBC) [Mass/Vol] 32.0 g/dL 30.5 - 36.0 g/dL [facility] MCV (RBC) [Entitic vol] 92.0 fL 80.0 - 100.0 fL [facility] RBC (Bld) [#/Vol] 4.14 10*6/uL 3.90 - 5.2 0 m/uL [facility] Specimen Type: BLOOD SPECIMEN Ordering Facility: [facility] Address: [address] [place] [address] Original Ordering Provider: ALEA GUZMAN [facility] CNOVon 09-26-[address] [facility] CNPTOUTREACHon 09-26-[address] [facility] Comprehensive metabolic 2000 panelon 09-26-2023 Albumin [Mass/Vol] 4.2 g/dL Normal 3.9-4.9 [facility] Comment on above: Order Comment: Speci men Type: BLOOD SPECIMENOrdering Facility: [facility] Address: [address] [place] [address] Performed By: #### 3 3762-6, 12679-8 ####[facility] LABCLIA [id number] [place] [address] [place] ALP [Catalytic activity/Vol] 57 U/L Normal 34-123 [facility] Comment on above: Order Comment: Speci men Type: BLOOD SPECIMENOrdering Facility: [facility] Address: [address] [place] [id number] Performed By: #### 3 3762-6, ####[facility] LABCLIA [id number] [address] [address] [place] ALT [Catalytic activity/Vol] 36 U/L Normal 7-38 [facility] Comment on above: Order Comment: Speci men Type: BLOOD SPECIMENOrdering Facility: [facility] Address: [address] [place] [address] Performed By: #### 3 3762-6, ####[facility] LABCLIA [id number] [place] [address] [place] Anion gap [Moles/Vol] 10 mmol/L Normal 9-18 [facility] Comment on above: Order Comment: Speci men Type: BLOOD SPECIMENOrdering Facility: [facility] Address: [address] [place] [id number] Performed By: #### 3 3762-6, ####[facility] LABCLIA [id number] [place] [id number] [place] AST [Catalytic activity/Vol] 29 U/L Normal 13-35 [facility] Comment on above: Order Comment: Speci men Type: BLOOD SPECIMENOrdering Facility: [facility] Address: [address] [place] [id number] Performed By: #### 3 3762-6, ####[facility] LABCLIA [id number] [place] [address] [place] Bilirubin [Mass/Vol] 0.6 mg/dL Normal 0.2-1.3 [facility] Comment on above: Order Comment: Speci men Type: BLOOD SPECIMENOrdering Facility: [facility] Address: [address] [place] [address] Performed By: #### 3 3762-6, ####[facility] LABCLIA [id number] [place] [address] [place] Calcium [Mass/Vol] 9.6 mg/dL Normal 8.5-10.2 [facility] Comment on above: Order Comment: Speci men Type: BLOOD SPECIMENOrdering Facility: [facility] Address: [address] [place] [address] Performed By: #### 3 3762-6, ####[facility] LABCLIA [id number] [facility] [place] [address] [place] Chloride [Moles/Vol] 100 mmol/L Normal 97-105 [facility] Comment on above: Order Comment: Speci men Type: BLOOD SPECIMENOrdering Facility: [facility] Address: [address] [place] [address] Performed By: #### 3 376-6, ####[facility] LABCLIA [id number] [facility] [place] [address] [place] CO2 [Moles/Vol] 29 mmol/L Normal 22-30 [facility] Comment on above: Order Comment: Speci men Type: BLOOD SPECIMENOrdering Facility: [facility] Address: [address] [place] [address] Performed By: #### 3 3762-6, ####[facility] LABCLIA [id number] [facility] [place] [address] [place] Creatinine [Mass/Vol] 0.82 mg/dL Normal 0.58-0.96 [facility] Comment on above: Order Comment: Speci men Type: BLOOD SPECIMENOrdering Facility: [facility] Address: [address] [place] [address] Performed By: #### 3 3762-6, 36397-0 ####[facility] LABCLIA [id number] [place] [address] [place] Creatinine and Glomerular filtration rate.predicted panel (S/P/Bld) 75 mL/min/1.73m??? Normal >=60 [facility] Comment on above: Order Comment: Nichole mariam Type: BLOOD SPECIMENOrdering Facility: [facility] Address: [address] [place] [address] Result Comment: Shelley mated Glomerular Filtration Rate [...] actual GFR. Performed By: #### 3 3762-6, 18297-5 ####[facility] LABCLIA [id number] [place] [address] [place] Glucose [Mass/Vol] 129 mg/dL High 74-99 [facility] Comment on above: Order Comment: Nichole becerra Type: BLOOD SPECIMENOrdering Facility: [facility] Address: [address] [place] [address] Result Comment: The [place] [employer] (ADA) provides guidance for cutoff [...] Standards of Medical Care in Diabetes 2016, [place] [employer]. Diabetes Care. 2016.39(Suppl 1). Performed By: #### 3 3762-6, 80633-6 ####[facility] LABCLIA [id number] [place] [id number] [place] Potassium [Moles/Vol] 4.3 mmol/L Normal 3.7-5.1 [facility] Comment on above: Order Comment: Speci men Type: BLOOD SPECIMENOrdering Facility: [facility] Address: [address] [place] [address] Performed By: #### 3 3762-6, ####[facility] LABCLIA [id number] [place] [address] [place] Protein [Mass/Vol] 6.4 g/dL Normal 6.3-8.0 [facility] Comment on above: Order Comment: Speci men Type: BLOOD SPECIMENOrdering Facility: [facility] Address: [address] [place] [address] Performed By: #### 3 3762-6, 05115-2 ####[facility] LABIA [id number] [place] [address] [place] Sodium [Moles/Vol] 139 mmol/L Normal 136-144 [facility] Comment on above: Order Comment: Speci men Type: BLOOD SPECIMENOrdering Facility: [facility] Address: [address] [place] [address] Performed By: #### 3 3762-6, ####[facility] LABIA [id number] [place] [address] [place] Urea nitrogen [Mass/Vol] 15 mg/dL Normal 7-21 [facility] Comment on above: Order Comment: Speci men Type: BLOOD SPECIMENOrdering Facility: [facility] Address: [address] [place] [address] Performed By: #### 3 3762-6, ####[facility] LABCLIA [id number] [place] [id number] [place] [id number] 09-26-[address] [facility]-pro[facility]-mCncon 09-26 Natriuretic peptide.B prohormone N-Terminal [Mass/Vol] 2047 pg/mL High <450 [facility] Comment on above: Order Comment: Speci men Type: BLOOD SPECIMENOrdering Facility: [facility] Address: [address] [place] [address] Performed By: #### 3 3762-6, 73915-9 ####[facility] LABCLIA [id number] [place] [address] [address] [place] URINALYSIS, REFLEX MICROSCOP ICon 09-26-2023 Bacteria LM.HPF (Urine sed) [#/Area] Few Abnormal None Seen /HPF [facility] Bilirubin Ql (U) Negative Negative [facility] Clarity (Unsp spec) Cloudy Abnormal Clear [facility] Color (U) Yellow Yellow [facility] Epithelial cells LM.HPF (Urine sed) [#/Area] Moderate [facility] Epithelial cells LM.HPF (Urine sed) [#/Area] Few Abnormal None Seen /HPF [facility] Glucose Test strip (U) [Mass/Vol] Negative Trace, Negative [facility] Hemoglobin Ql (U) 1+ Abnormal Negative, Trace [facility] Ketones Ql (U) Negative Negative, Trace [facility] Leukocyte esterase Test strip Ql (U) 500 Ghislaine/uL Abnormal Negative, 25 Ghislanie/uL [facility] Nitrite Ql (U) Negative Negative [facility] pH (U) 6.0 [pH] 5.0 - 8.0 [facility] Protein (U) [Mass/Vol] Negative Trace, Negative [facility] RBC LM.HPF (Urine sed) [#/Area] 3-5 /HPF Abnormal 0-3 /HPF [facility] Specific gravity (U) [Rel density] 1.013 1.005 - 1.030 [facility] Urobilinogen Ql (U) Normal Normal [facility] WBC LM.HPF (Urine sed) [#/Area] /[HPF] Abnormal 0-5 /HPF [facility] Bacteria LM.HPF (Urine sed) [#/Area] Few Abnormal None Seen [facility] Comment on above: Order Comment: Speci men Type: URINE SPECIMENOrdering Facility: [facility] Address: [address] [place] [address] Performed By: #### L [id number] ####[facility] LABCLIA [id number] [place] [address] [place] Bilirubin Ql (U) Negative Normal Negative [facility] Comment on above: Order Comment: Speci men Type: URINE SPECIMENOrdering Facility: [facility] Address: [address] [place] [address] Performed By: #### L [id number] ####[facility] LABCLIA [id number] [place] [address] [place] Clarity (Unsp spec) Cloudy Abnormal Clear [facility] Comment on above: Order Comment: Speci men Type: URINE SPECIMENOrdering Facility: [facility] Address: [address] [place] [address] Performed By: #### L [id number] ####[facility] LABCLIA [id number] [place] [address] [place] Color (U) Yellow Normal Yellow [facility] Comment on above: Order Comment: Speci men Type: URINE SPECIMENOrdering Facility: [facility] Address: [address] [place] [address] Performed By: #### L [id number] ####[facility] LABCLIA [id number] [place] [address] [place] Epithelial cells LM.HPF (Urine sed) [#/Area] Moderate Normal [facility] Comment on above: Order Comment: Speci men Type: URINE SPECIMENOrdering Facility: [facility] Address: [address] [place] [address] Result Comment: Few Performed By: #### L [id number] ####[facility] LABCLIA [id number] [place] [address] [place] Glucose Test strip (U) [Mass/Vol] Negative Normal Trace, Negative [facility] Comment on above: Order Comment: Speci men Type: URINE SPECIMENOrdering Facility: [facility] Address: [address] [place] [address] Performed By: #### L [id number] ####[facility] LABCLIA [id number] [place] [address] [place] Hemoglobin Ql (U) 1+ Abnormal Negative, Trace [facility] Comment on above: Order Comment: Speci men Type: URINE SPECIMENOrdering Facility: [facility] Address: [address] [place] [address] Performed By: #### L [id number] ####[facility] LABCLIA [id number] [place] [address] [place] Ketones Ql (U) Negative Normal Negative, Trace [facility] Comment on above: Order Comment: Speci men Type: URINE SPECIMENOrdering Facility: [facility] Address: [address] [place] [address] Performed By: #### L [id number] ####[facility] LABCLIA [id number] [place] [address] [place] Leukocyte esterase Test strip Ql (U) 500 Ghislaine/uL Abnormal Negative, 25 Ghislaine/uL [facility] Comment on above: Order Comment: Speci men Type: URINE SPECIMENOrdering Facility: [facility] Address: [address] [place] [address] Performed By: #### L [id number] ####[facility] LABCLIA [id number] [place] [address] [place] Nitrite Ql (U) Negative Normal Negative [facility] Comment on above: Order Comment: Speci men Type: URINE SPECIMENOrdering Facility: [facility] Address: [address] [place] [address] Performed By: #### L [id number] ####[facility] LABCLIA [id number] [place] [address] [place] pH (U) 6.0 [pH] Normal 5.0-8.0 [facility] Comment on above: Order Comment: Speci men Type: URINE SPECIMENOrdering Facility: [facility] Address: [address] [place] [address] Performed By: #### L [id number] ####[facility] LABIA [id number] [place] [address] [place] Protein (U) [Mass/Vol] Negative Normal Trace, Negative [facility] Comment on above: Order Comment: Speci men Type: URINE SPECIMENOrdering Facility: [facility] Address: [address] [place] [address] Performed By: #### L [id number] ####[facility] [id number] [place] [address] [place] RBC LM.HPF (Urine sed) [#/Area] 3-5 /HPF Abnormal 0-3 /HPF [facility] Comment on above: Order Comment: Speci men Type: URINE SPECIMENOrdering Facility: [facility] Address: [address] [place] [address] Performed By: #### L [id number] ####[facility] [id number] [place] [address] [place] Specific gravity (U) [Rel density] 1.013 Normal 1.005-1.030 [facility] Comment on above: Order Comment: Speci men Type: URINE SPECIMENOrdering Facility: [facility] Address: [address] [place] [address] Performed By: #### L [id number] ####[facility] LABIA [id number] [place] [address] [place] Urobilinogen Ql (U) Normal Normal Normal [facility] Comment on above: Order Comment: Speci men Type: URINE SPECIMENOrdering Facility: [facility] Address: [address] [place] [address] Performed By: #### L [id number] ####[facility] LABIA [id number] [place] [address] [place] WBC LM.HPF (Urine sed) [#/Area] /[HPF] Abnormal 0-5 /HPF [facility] Comment on above: Order Comment: Speci men Type: URINE SPECIMENOrdering Facility: [facility] Address: [address] [place] [address] Performed By: #### L [id number] ####[facility] LABCLIA [id number] [place] [address] [place] CNPNon 09-21-[address] [facility] BMPon 09-17-2023 Anion gap [Moles/Vol] 9 mmol/L Normal 6-16 [facility] Comment on above: Performed By: #### 2 250459, 46875625, 8312292, 8206849, 2293797, 8080403 #### [facility] [address] [place] [address] BUN/Creat Ratio 24 No Units High 10-20 [facility] Comment on above: Performed By: #### 2 529089, 38875830, 1429006, 5728536, 5098978, 7477934 #### [facility] [address] [place] [address] Calcium [Mass/Vol] 9.1 mg/dL Normal 8.9-11.1 [facility] Comment on above: Performed By: #### 2 073947, 66278392, 3502194, 2916809, 1943359, 3264883 #### [facility] [address] [place] [address] Chloride [Moles/Vol] 105 mmol/L Normal 101-111 [facility] Comment on above: Performed By: #### 2 137330, 97343986, 5056948, 1242107, 3062350, 0728169 #### [facility] [address] [place] [address] CO2 [Moles/Vol] 28 mmol/L Normal 21-31 [facility] Comment on above: Performed By: #### 2 801752, 11350930, 7857750, 4460386, 7849236, 6590123 #### [facility] [address] [place] [address] Creatinine [Mass/Vol] 0.7 mg/dL Normal 0.5-1.3 [facility] Comment on above: Performed By: #### 2 992764, 24933895, 1374173, 1914058, 4701328, 5290758 #### [facility] [address] [place] [address] Glucose [Mass/Vol] 83 mg/dL Normal 55-199 [facility] Comment on above: Performed By: #### 2 252033, 86095233, 1795111, 5866652, 9518293, 0295501 #### [facility] [address] [place] [address] Potassium [Moles/Vol] 4.0 mmol/L Normal 3.5-5.3 [facility] Comment on above: Performed By: #### 2 393805, 86333462, 6942497, 4286896, 8189109, 1450086 #### [facility] [address] [place] [address] Sodium [Moles/Vol] 138 mmol/L Normal 135-145 [facility] Comment on above: Performed By: #### 2 413781, 98877118, 1366102, 4800022, 2236550, 1152413 #### [facility] [address] [place] [address] Urea nitrogen [Mass/Vol] 17 mg/dL Normal 5-21 [facility] Comment on above: Performed By: #### 2 198257, 21800760, 4335941, 4233428, 4056721, 9194629 #### [facility] [address] [place] [address] CBC w/ Auto Diffon 4 Basophil Absolute 0.1 E9/L Normal 0.0-0.2 [facility] Comment on above: Performed By: #### 2 808368, 60333358, 8906203, 1046718, 7959623, 5305879 #### [facility] [address] [place] [address] Basophils/100 WBC (Bld) 0.9 % Normal 0.0-2.0 [facility] Comment on above: Performed By: #### 2 863145, 33773149, 0849117, 9792927, 7396899, 4901609 #### [facility] [address] [place] [address] Eos Absolute 0.0 E9/L Normal 0.0-0.5 [facility] Comment on above: Performed By: #### 2 992959, 86567484, 5631204, 8002740, 6106552, 4714561 #### [facility] [address] [place] [address] Eosinophils/100 WBC (Bld) 0.7 % Normal 0.0-8.0 [facility] Comment on above: Performed By: #### 2 349563, 17990568, 0923589, 0116834, 5003668, 3227002 #### [facility] [address] [place] [address] Erythrocyte distribution width (RBC) [Ratio] 14.1 % Normal 10.9-14.2 [facility] Comment on above: Performed By: #### 2 403151, 19484466, 4650298, 9939320, 9527180, 2109148 #### [facility] [address] [place] [address] Hematocrit (Bld) [Volume fraction] 36.0 % Normal 34.0-46.0 [facility] Comment on above: Performed By: #### 2 126560, 15662358, 7320686, 2739939, 6738087, 7113169 #### [facility] [address] [place] [address] Hemoglobin (Bld) [Mass/Vol] 12.2 g/dL Normal 12.0-16.0 [facility] Comment on above: Performed By: #### 2 656240, 79353756, 0197222, 0946457, 7867993, 6786778 #### [facility] [address] [place] [address] Lymph Absolute 2.1 E9/L Normal 1.0-4.0 [facility] Comment on above: Performed By: #### 2 825841, 88504629, 5204771, 2631356, 9470800, 9913444 #### [facility] [address] [place] [address] Lymphocytes/100 WBC (Bld) 31.6 % Normal 14.0-50.0 [facility] Comment on above: Performed By: #### 2 406460, 91597573, 4455561, 0091723, 2562315, 0142214 #### [facility] [address] [place] [address] MCH (RBC) [Entitic mass] 30.0 pg Normal 27.0-34.0 [facility] Comment on above: Performed By: #### 2 792615, 08711659, 2521969, 1224048, 0588210, 0635510 #### [facility] [address] [place] [address] MCHC (RBC) [Mass/Vol] 34.1 g/dL Normal 31.4-36.0 [facility] Comment on above: Performed By: #### 2 181308, 53259217, 2624738, 8720230, 4710561, 6281559 #### [facility] [address] [place] [address] MCV (RBC) [Entitic vol] 88.0 fL Normal 80.0-100.0 [facility] Comment on above: Performed By: #### 2 919054, 18263679, 6772954, 8229683, 6086541, 9847433 #### [facility] [address] [place] [address] [place] Absolute 0.6 E9/L Normal 0.2-1.0 [facility] Comment on above: Performed By: #### 2 598332, 19532543, 0467825, 8378804, 4560612, 8630532 #### [facility] [address] [place] [address] Monocytes/100 WBC (Bld) 9.5 % Normal 4.0-14.0 [facility] Comment on above: Performed By: #### 2 563212, 21402313, 2956880, 1750911, 6791363, 0670819 #### [facility] [address] [place] [address] Neutro Absolute 3.8 E9/L Normal 2.0-7.5 [facility] Comment on above: Performed By: #### 2 063603, 37752163, 2767740, 2413625, 5137015, 5750489 #### [facility] [address] [place], [place] [address] Neutro Auto 57.3 % Normal 36.0-75.0 [facility] Comment on above: Performed By: #### 2 814691, 94848549, 7609841, 1007687, 0357560, 3614535 #### [facility] [address] [place] [address] Platelet 186.0 E9/L Normal 150.0-500.0 [facility] Comment on above: Performed By: #### 2 880965, 18934728, 1986142, 1722571, 8880431, 2379773 #### [facility] [address] [place] [address] Platelet mean volume (Bld) [Entitic vol] 8.0 fL Normal 6.4-10.8 [facility] Comment on above: Performed By: #### 2 587594, 78058052, 9574244, 5107959, 9276211, 1615021 #### [facility] [address] [place] [address] RBC 4.1 E12/L Low 4.3-5.9 [facility] Comment on above: Performed By: #### 2 741486, 36496946, 5050823, 1106216, 7282370, 8487761 #### [facility] [address] [place] [address] WBC 6.6 E9/L Normal 4.0-11.0 [facility] Comment on above: Performed By: #### 2 481601, 73627003, 6300001, 3525158, 4981281, 5796141 #### [facility] [address] [place] [address] CHEMISTRYOrdered By: SYSTEM SYSTEM on 09-17-2023 Anion [...] mg/dL Normal 55 - 99 mg/dL [facility] POC Subsection Comment on above: Result Comment: Neli cain RN/ POC Device SN [id number] Invalid Interpretation Code [facility] POC Subsection POC User ID [id number] 1 Invalid Interpretation Code [facility] POC Subsection POC Username ZIGGY HOLGUIN Invalid Interpretation Code [facility] POC Subsection CNPNon 09-17-[address] [facility] COAGULATIONOrdered By: Han Frost on 09-17-2023 aPTT Coag (PPP) [Time] 38.2 s High 25.1 - 36.5 second(s) [facility] Auto Coag Comment on above: Interpretive Data: [...] same coagulation reagent and instrumentation as [facility]. Currently there are no coagulation studies available worldwide for children to 14 days, and no normal ranges. Heparin therapeutic range (represented by Anti-Factor Xa activity of 0.2 - 0.4 U/mL) corresponds to PTT of 56.6 - 109.0 sec. INR Coag (PPP) [Relative time] 1.4 {INR} Invalid Interpretation Code [facility] Auto Coag Comment on above: Interpretive Data: I NR results are specifically intended to assess patients stabilized on long-term Anticoagulation therapy suggested INR s Less Intensive Anticoagulation 2.0 3.0 Conventional Range 3.0 4.5 PT Coag (PPP) [Time] 16.4 s High 9.4 - 1 2.5 second(s) [facility] Auto Coag Comment on above: Interpretive Data: [...] same coagulation reagent and instrumentation as [facility]. Currently there are no coagulation studies available worldwide for children to 14 days, and no normal ranges. Capillary Glucose POCon Glucose [Mass/Vol] 79 mg/dL Normal 55-99 [facility] Comment on above: Result Comment: Neli cain RN/ Performed By: #### 2 [id number] ####[facility] [address] [place] [address] Consent for Treatmenton Consent for Treatment [id number] .00TIFF Normal [facility] Discharge Instructionson Discharge Instructions [id number]# 1.00TIFF Normal [facility] ED Clinical Summaryon 2023 ED Clinical Summary [address] [address] ED Clinical Summary Person Information Name: HARJIT ASENCIO I Patricia/[facility] Age: 73 Years : 1950 Sex: Female Language: Trinidadian PCP: Aravind MCMAHON, Peggy Mcmillan Marital Status: [...] 09/17/2023 06:16:25 09/17/2023 06:16:25 09/17/2023 06:16:25 ADDRESS: [address] [place] [id number] PHYS DOC NOTES: MEDICAL INFORMATION: Prescriptions Given: [...] Address: When: Peggy Nazario [address] [place] [address] Business (1) In 3 days DIAGNOSIS: Acid reflux; Medication reaction Normal [facility] ED Note-Physicianon 09-17-19 ED Note-Physician Basic [...] and Complexity of Problems Differential Diagnosis: [] [facility] Data External documents reviewed: N/A My [...] Peggy Nazario In 3 days [address] [place] [address]- Business (1) Additional Instructions: Patient Education Drug [...] C (more content not included)... Normal [facility] Comment on above: Result Comment: [...] vinegar, hot sauces, and barbecue sauce. ? [place] fruit juices and citrus fruits, such as oranges, ronald, and limes. ? Tomato-based foods, such as red sauce, chili, salsa, and pizza with red sauce. ? Fried and fatty foods, such as donuts, cuban fries, potato chips, and high-fat dressings. ? [...] your health care provider. Medicines ? Take krvw-xum-jrnfxfm and prescription medicines only as told by [...] by your health care provider. ? Take qwwg-tuv-ppkbdix and prescription medicines only as told by [...] provider. Document Revised: 02/03/2021 Document Reviewed: 02/03/2021 [employer] Patient Education ? 2022 [employer]. Pharmacology Drug Allergy A drug allergy happens when the body's disease-fighting system (immune system) reacts badly to a medicine. Drug allergies range from mild to severe. A drug allergy is not the same as a medicine side effect, which is a known possible reaction to the drug. A drug allergy is a (more content not included)... Normal [facility] ED Patient Summaryon 024 ED Patient Summary [place] [id number] Patient Discharge Instructions Person Information Name: HARJIT ASENCIO I Age: 73 Years Arrival Date: 09/17/2023 04:55:16 Discharge Diagnosis: Acid reflux; Medication reaction Primary Care Physician: Peggy Nazario MD Provider Information Primary Provider: Parveen Ayers DO [employer] Administrator:None The exam and treatment you received in the Emergency Department were for an urgent problem and are not intended as complete care. It is important that you follow up with a doctor, nurse practitioner, or physician?s research study assistant for ongoing care. If your symptoms [...] Instructions: With: Address: When: Peggy Nazario [address] [place] [address] Business (1) In 3 days In the event that this physician does not participate in your insurance network, please consult with your insurance company to find a nearby participating provider. Patient Education Materials: Drug Allergy; Heartburn A MESSAGE TO ALL PATIENTS REGARDING OPIOIDS PRESCRIPTION OPIOIDS: WHAT YOU NEED TO KNOW Prescription opioids can be used to help relieve dhcmvttb-sj-pffkfs pain and are often prescribed following a [...] struggling with addiction, tell your health care transitions nurse and ask for guidance or call [facility]S National Helpline at 9-987-518-JMMR. v Source: [place] Department of Health and (more content not included)... Normal [facility] HEMATOLOGYOrdered By: SYSTEM SYSTEM on 09-17-2023 [...] Normal 80.0 - 100.0 fL Remisol Heme [place] Absolute 0.6 E9/L Normal 0.2 - 1.0 [...] Remisol Heme Monitor Recordon 09-17-2023 Monitor Record [id number]# 1.00TIFF Normal [facility] PT & PTTon 09-17-2023 aPTT Coag (PPP) [Time] 38.2 second(s) High 25.1-36.5 [facility] Comment on above: Result Comment: Para [...] same coagulation reagent and instrumentation as [facility]. Currently there are no coagulation studies available worldwide for children to 14 days, and no normal ranges. Heparin therapeutic range (represented by Anti-Factor Xa activity of 0.2 - 0.4 U/mL) corresponds to PTT of 56.6 - 109.0 sec. Performed By: #### 2 624632, 70369164, 7791300, 8222820, 2060086, 3425394 #### [facility] [address] [place] [address] INR Coag (PPP) [Relative time] 1.4 {INR} Invalid Interpretation Code [facility] Comment on above: Result Comment: INR results are specifically intended to assess patients stabilized on long-term Anticoagulation therapy suggested INR?s ?Less Intensive Anticoagulation? 2.0 ? 3.0 Conventional Range 3.0 ? 4.5 Performed By: #### 2 517980, 38639208, 6455371, 0722569, 2330602, 9602868 #### [facility] [address] [place] [address] PT Coag (PPP) [Time] 16.4 second(s) High 9.4-12.5 [facility] Comment on above: Result Comment: 15 [...] were obtained from a study by Roel [place], et al. prepared from 1437 samples obtained at 7 different centers using the same coagulation reagent and instrumentation as [facility]. Currently there are no coagulation studies available worldwide for children to 14 days, and no normal ranges. Performed By: #### 2 057830, 67862706, 0144411, 1933194, 9269566, 9809627 #### [facility] [address] [place] [address] Troponin 0 Hr.on 09-17-2023 Troponin 11.70 pg/mL Normal 10.10-27.10 [facility] Comment on above: Result Comment: The 95% CI (Confidence Interval) PPV (Positive Predictive Value) for myocardial infarction in females is 38 pg/mL, in males 51 pg/mL. The results should be used in conjunction with clinical conditions of myocardial infarction. (Access High Sensitivity Troponin I Instructions For Use, [employer], March 2018) Performed By: #### 2 583879, 06010872, 1116797, 9408272, 6298393, 6583103 #### [facility] [address] [place] [address] XR Chest Single Viewon 09-17 XR Chest [...] mGy = na DAP = na Normal [facility] eGFRon 09-17-2023 eGFR 90 mL/min/1.73 m2 Normal >=59 [facility] Comment on above: Order Comment: Order added by Discern Expert. Performed By: #### 2 066928, 52841983, 1460796, 9110234, 2787824, 6058249 #### [facility] [address] [place] [address] BMPon 09-12-2023 Anion gap [Moles/Vol] 12 mmol/L Normal 6-16 [facility] Comment on above: Performed By: #### 2 403884, 04094603, 8157619, 2233623, 6003893, 6949179 #### [facility] [address] [place] [address] BUN/Creat Ratio 27 No Units High 10-20 [facility] Comment on above: Performed By: #### 2 176547, 39206175, 8685153, 6313982, 4607896, 7080597 #### [facility] [address] [place] [address] Calcium [Mass/Vol] 9.5 mg/dL Normal 8.9-11.1 [facility] Comment on above: Performed By: #### 2 672840, 53261201, 8112207, 7440875, 8887056, 3077031 #### [facility] [address] [place] [address] Chloride [Moles/Vol] 101 mmol/L Normal 101-111 [facility] Comment on above: Performed By: #### 2 179534, 11303410, 6747930, 5346919, 5510340, 9670015 #### [facility] [address] [place] [address] CO2 [Moles/Vol] 27 mmol/L Normal 21-31 [facility] Comment on above: Performed By: #### 2 995241, 19600965, 8160412, 1973615, 3998780, 3252685 #### [facility] [address] [place] [address] Creatinine [Mass/Vol] 0.9 mg/dL Normal 0.5-1.3 [facility] Comment on above: Performed By: #### 2 169718, 63297425, 1573593, 4968582, 9412616, 1465092 #### [facility] [address] [place] [address] Glucose [Mass/Vol] 87 mg/dL Normal 55-199 [facility] Comment on above: Performed By: #### 2 009335, 74060669, 7186451, 5988193, 1977220, 2471965 #### [facility] [address] [place] [address] Potassium [Moles/Vol] 4.9 mmol/L Normal 3.5-5.3 [facility] Comment on above: Performed By: #### 2 287406, 65645724, 5029707, 7443024, 2647937, 1365299 #### [facility] [address] [place] [address] Sodium [Moles/Vol] 135 mmol/L Normal 135-145 [facility] Comment on above: Performed By: #### 2 877828, 92021732, 4711288, 1941637, 5754226, 8743621 #### [facility] [address] [place] [address] Urea nitrogen [Mass/Vol] 24 mg/dL High 5-21 [facility] Comment on above: Performed By: #### 2 397529, 63835699, 6472346, 1911932, 6074504, 0369185 #### [facility] [address] [place] [address] CBC w/ Auto Diffon 4 Basophil Absolute 0.1 E9/L Normal 0.0-0.2 [facility] Comment on above: Performed By: #### 2 374113, 02912368, 4368936, 4350581, 0759575, 3447572 #### [facility] [address] [place] [address] Basophils/100 WBC (Bld) 1.1 % Normal 0.0-2.0 [facility] Comment on above: Performed By: #### 2 560721, 34956674, 3050821, 2152889, 2086388, 6543318 #### [facility] [address] [place] [address] Eos Absolute 0.1 E9/L Normal 0.0-0.5 [facility] Comment on above: Performed By: #### 2 254331, 00590754, 1821080, 2265959, 1655984, 8276540 #### [facility] [address] [place] [address] Eosinophils/100 WBC (Bld) 1.2 % Normal 0.0-8.0 [facility] Comment on above: Performed By: #### 2 951075, 72859053, 0001116, 6888155, 7749394, 3445484 #### [facility] [address] [place] [address] Erythrocyte distribution width (RBC) [Ratio] 13.7 % Normal 10.9-14.2 [facility] Comment on above: Performed By: #### 2 229768, 24093861, 7971272, 3977436, 4804580, 4736222 #### [facility] [address] [place] [address] Hematocrit (Bld) [Volume fraction] 41.0 % Normal 34.0-46.0 [facility] Comment on above: Performed By: #### 2 283352, 52196477, 2368961, 2762936, 2427033, 1502909 #### [facility] [address] [place] [address] Hemoglobin (Bld) [Mass/Vol] 13.4 g/dL Normal 12.0-16.0 [facility] Comment on above: Performed By: #### 2 460414, 06367775, 5596376, 8017316, 7569370, 9675685 #### [facility] [address] [place] [address] Lymph Absolute 1.9 E9/L Normal 1.0-4.0 [facility] Comment on above: Performed By: #### 2 607513, 98297969, 2522887, 5859065, 0116885, 7915277 #### [facility] [address] [place] [address] Lymphocytes/100 WBC (Bld) 25.9 % Normal 14.0-50.0 [facility] Comment on above: Performed By: #### 2 651957, 49500778, 9703613, 5629228, 6218569, 6298705 #### [facility] [address] [place] [address] MCH (RBC) [Entitic mass] 29.5 pg Normal 27.0-34.0 [facility] Comment on above: Performed By: #### 2 880189, 52655205, 8384496, 1411888, 5603471, 9368023 #### [facility] [address] [place] [address] MCHC (RBC) [Mass/Vol] 32.9 g/dL Normal 31.4-36.0 [facility] Comment on above: Performed By: #### 2 615547, 46542790, 3144660, 7548816, 8051750, 0279577 #### [facility] [address] [place] [address] MCV (RBC) [Entitic vol] 89.6 fL Normal 80.0-100.0 [facility] Comment on above: Performed By: #### 2 776659, 64978017, 2541743, 1812930, 2147228, 2170113 #### [facility] [address] [place] [address] [place] Absolute 0.6 E9/L Normal 0.2-1.0 [facility] Comment on above: Performed By: #### 2 839374, 11792574, 1600212, 4145682, 1801557, 6585354 #### [facility] [address] [place] [address] Monocytes/100 WBC (Bld) 8.0 % Normal 4.0-14.0 [facility] Comment on above: Performed By: #### 2 236568, 64512267, 5298400, 7040981, 6422899, 0099608 #### [facility] [address] [place] [address] Neutro Absolute 4.7 E9/L Normal 2.0-7.5 [facility] Comment on above: Performed By: #### 2 993888, 07259506, 1310259, 9786406, 1277848, 4116454 #### [facility] [address] [place] [address] Neutro Auto 63.8 % Normal 36.0-75.0 [facility] Comment on above: Performed By: #### 2 608897, 25311488, 4322190, 9354063, 8020781, 3243906 #### [facility] [address] [place] [address] Platelet 214.0 E9/L Normal 150.0-500.0 [facility] Comment on above: Performed By: #### 2 569629, 99196762, 3112539, 7950574, 5310548, 8332155 #### [facility] [address] [place] [address] Platelet mean volume (Bld) [Entitic vol] 8.2 fL Normal 6.4-10.8 [facility] Comment on above: Performed By: #### 2 731810, 39367364, 4588123, 2617751, 3484390, 4045006 #### [facility] [address] [place] [address] RBC 4.6 E12/L Normal 4.3-5.9 [facility] Comment on above: Performed By: #### 2 855650, 95868258, 4794405, 8530078, 3473951, 0656952 #### [facility] [address] [place] [address] WBC 7.4 E9/L Normal 4.0-11.0 [facility] Comment on above: Performed By: #### 2 099897, 14220075, 4447973, 3178255, 5408437, 0567305 #### [facility] [address] [place] [address] CHEMISTRYOrdered By: Maryan Frost on 09-12-2023 U [...] Sensitivity Troponin I Instructions For Use, [facility] [place], March 2018) Urea nitrogen [Mass/Vol] 24 mg/dL High 5 - 21 mg/dL Rem[facility] Urea nitrogen/Creatinine [Mass ratio] 27 mg/mg High 10 - 20 [facility] CHEMISTRYOrdered By: Lab ROP User on 09-12-2023 Glucose [Mass/Vol] 96 mg/dL Normal 55 - 99 mg/dL [facility] POC Subsection Comment on above: Result Comment: Neli PIÑA POC Device SN [id number] Invalid Interpretation Code [facility] POC Subsection POC User ID [id number] 1 Invalid Interpretation Code [facility] POC Subsection POC Username CORINNE COTA Invalid Interpretation Code [facility] POC Subsection CNPNon 09-12-[address] [facility] CT Head or Brain w/o Contras [...] Technologist: JON Technical Comments Contrast: None Normal [facility] Capillary Glucose POCon 08-16 Glucose [Mass/Vol] 96 mg/dL Normal 55-99 [facility] Comment on above: Result Comment: Neli PIÑA Performed By: #### 2 421107, 90407187, 1029544, 9332895, 5685344, 9215398 #### [facility] [address] [place] [address] Consent for Treatmenton 08-16 Consent for Treatment [id number] .00TIFF Normal [facility] Discharge Instructionson Discharge Instructions [id number] .00TIFF Normal [facility] ED Clinical Summaryon 2023 ED Clinical Summary [place] [id number] ED Clinical Summary Person Information Name: HARJIT ASENCIO/[place] Age: 73 Years : 1950 Sex: Female Language: Trinidadian PCP: Aravind MCMAHON, Peggy Mcmillan Marital Status: [...] 09/12/2023 06:47:40 09/12/2023 06:47:40 09/12/2023 06:47:40 ADDRESS: [address] [place] [address] [address] [facility] [id number] PHYS DOC NOTES: MEDICAL INFORMATION: Prescriptions Given: [...] Address: When: Peggy Nazario [address] [place] [address] [employer]™ ([employer] In 3 days DIAGNOSIS: Acid reflux; Tremor Normal [facility] ED Note-Physicianon 09-12-19 ED Note-Physician Basic [...] and Complexity of Problems Differential Diagnosis: [] [facility] Data External documents reviewed: N/A My [...] Information Peggy Nazario In 3 days [address] [place] [address] [employer]™ (1) Additional Instructions: Patient Education Tremor Gastroesophageal [...] urethral stri (more content not included)... Normal [facility] Comment on above: Result Comment: Elec [...] vinegar, hot sauces, and barbecue sauce. ? [place] fruit juices and citrus fruits, such as oranges, ronald, and limes. ? Tomato-based foods, such as red sauce, chili, salsa, and pizza with red sauce. ? Fried and fatty foods, such as donuts, cuban fries, potato chips, and high-fat dressings. ? [...] safe eugene (more content not included)... Normal [facility] ED Patient Summaryon 024 ED Patient Summary [address] [address] Patient Discharge Instructions Person Information Name: HARJIT ASENCIO I Age: 73 Years Arrival Date: 09/12/2023 04:02:15 Discharge Diagnosis: Acid reflux; Tremor Primary Care Physician: Peggy Nazario MD Provider Information Primary Provider: Parveen Ayers DO [employer] Administrator:None The exam and treatment you received in the Emergency Department were for an urgent problem and are not intended as complete care. It is important that you follow up with a doctor, nurse practitioner, or physician?s research study assistant for ongoing care. If your symptoms [...] Address: When: Peggy Nazario [address] [place] [address] Business (1) In 3 days In the event that this physician does not participate in your insurance network, please consult with your insurance company to find a nearby participating provider. Patient Education Materials: Tremor; Gastroesophageal Reflux Disease, Adult A MESSAGE TO ALL PATIENTS REGARDING OPIOIDS PRESCRIPTION OPIOIDS: WHAT YOU NEED TO KNOW Prescription opioids can be used to help relieve jhatgdrk-um-lnjiwc pain and are often prescribed following a [...] struggling with addiction, tell your health care transitions nurse and ask for guidance or call [facility]?S National Helpline at 5-338-285-IYPE. n Source: Department of (more content not included)... Normal [facility] HEMATOLOGYOrdered By: SYSTEM SYSTEM on 09-12-2023 [...] Normal 80.0 - 100.0 fL Remisol Heme [place] Absolute 0.6 E9/L Normal 0.2 - 1.0 [...] Remisol Heme Monitor Recordon 09-12-2023 Monitor Record [id number]# 1.00TIFF Normal [facility] Troponin 0 Hr.on 09-12-2023 Troponin 12.70 pg/mL Normal 10.10-27.10 [facility] Comment on above: Result Comment: The 95% CI (Confidence Interval) PPV (Positive Predictive Value) for myocardial infarction in females is 38 pg/mL, in males 51 pg/mL. The results should be used in conjunction with clinical conditions of myocardial infarction. (Access High Sensitivity Troponin I Instructions For Use, [facility] [place], March 2018) Performed By: #### 2 991115, 08875083, 3065797, 2638519, 5692284, 2243927 #### [facility] [address] [place] [address] U Drug Screenon 09-12-2023 U Amph Scr Negative Invalid Interpretation Code [facility] Comment on above: Performed By: #### 2 723394, 15257396, 6537286, 7422076, 2273619, 5076598 #### [facility] [address] [place] [address] U Hayley Scr Negative Invalid Interpretation Code [facility] Comment on above: Performed By: #### 2 630220, 29573533, 7089184, 3615126, 2797571, 5911325 #### [facility] [address] [place] [address] U Benzodia Scr Negative Invalid Interpretation Code [facility] Comment on above: Performed By: #### 2 233679, 41800568, 8314707, 9946902, 5540153, 3548507 #### [facility] [address] [place] [address] U Cannab Scr Negative Invalid Interpretation Code [facility] Comment on above: Performed By: #### 2 875433, 31458824, 0790277, 3963044, 1482588, 5824518 #### [facility] [address] [place] [address] U Cocaine Scr Negative Invalid Interpretation Code [facility] Comment on above: Performed By: #### 2 434401, 85193329, 0563824, 9009293, 2274485, 4781597 #### [facility] [address] [place] [address] U Opiate Scr Negative Invalid Interpretation Code [facility] Comment on above: Performed By: #### 2 490225, 44425368, 4538370, 4387846, 4329724, 3087736 #### [facility] [address] [place] [address] U PCP Scr Negative Invalid Interpretation Code [facility] Comment on above: Performed By: #### 2 982460, 95211182, 8417187, 9461589, 6351744, 9903464 #### [facility] [address] [place] [address] UA With Cult Reflexon 2023 Bilirubin Ql (U) Negative Normal Negative [facility] Comment on above: Performed By: #### 1 2392100 #### [facility] [address] [place] [address] Clarity (U) CLEAR Normal Clear [facility] Comment on above: Performed By: #### 1 3500533 #### [facility] [address] [place] [address] Color (U) STRAW Invalid Interpretation Code [facility] Comment on above: Performed By: #### 1 8027007 #### [facility] [address] [place] [address] Epithelial cells.squamous LM.HPF (Urine sed) [#/Area] 0-2 Normal 0-2 [facility] Comment on above: Performed By: #### 1 1357321 #### [facility] [address] [place] [address] Glucose Test strip (U) [Mass/Vol] Negative Normal Negative [facility] Comment on above: Performed By: #### 1 3550806 #### [facility] [address] [place] [address] Hemoglobin Ql (U) 1+ Abnormal Negative [facility] Comment on above: Performed By: #### 1 4893185 #### [facility] [address] [place] [address] Ketones (U) [Mass/Vol] Negative Normal Negative [facility] Comment on above: Performed By: #### 1 2456148 #### [facility] [address] [place] [address] [place].plasma/Lithiu m.RBC (Bld) [Mass ratio] 0-3 Normal 0-3 [facility] Comment on above: Performed By: #### 1 0325352 #### [facility] [address] [place] [address] Nitrite Ql (U) Negative Normal Negative [facility] Comment on above: Performed By: #### 1 5217324 #### [facility] [address] [place] [address] pH (U) 7.0 [pH] Invalid Interpretation Code 5.0-9.0 [facility] Comment on above: Performed By: #### 1 6517453 #### [facility] [address] [place] [address] Protein (U) [Mass/Vol] Negative Normal Negative [facility] Comment on above: Performed By: #### 1 2482610 #### [facility] [address] [place] [address] Specific gravity (U) [Rel density] <=1.005 Invalid Interpretation Code 1.005-1.030 [facility] Comment on above: Performed By: #### 1 6001161 #### [facility] [address] [place] [address] Type of Urine collection method Clean Catch Normal [facility] Comment on above: Performed By: #### 1 4701280 #### [facility] [address] [place] [address] Urobilinogen Qn (U) 0.2 {Judith'U}/dL Normal 0.0-1.0 [facility] Comment on above: Performed By: #### 1 8518899 #### [facility] [address] [place] [address] WBC Auto Ql (U) TRACE Abnormal Negative [facility] Comment on above: Performed By: #### 1 2812050 #### [facility] [address] [place] [address] WBC LM.HPF (Urine sed) [#/Area] 0-5 Normal 0-5 [facility] Comment on above: Performed By: #### 1 4086546 #### [facility] [address] [place] [address] URINALYSISOrdered By: Ethan Frost on 09-12-2023 Bilirubin [...] AM) Normal Negative [facility] UA Auto SS [place].plasma/Lithiu m.RBC (Bld) [Mass ratio] 0-3 /HPF Normal [...] Desc Clean Catch (09/12/23 4:53 AM) Normal [facility] UA Auto SS Urobilinogen Qn (U) 0.3583624 {Judith'U}/dL Normal 0.0 - 1.0 EU/dL [facility] [...] mGy = na DAP = na Normal [facility] eGFRon 09-12-2023 eGFR 66 mL/min/1.73 m2 Normal >=59 [facility] Comment on above: Order Comment: Order Added by Discern Expert. Performed By: #### 2 107002, 04909706, 0673352, 7592570, 7892343, 8388733 #### [facility] [address] [place] [id number] CNPNon 09-07-[address] [facility] CNPNon 09-01-[address] [facility] CBC panel Auto (Bld)on 08-31 Erythrocyte distribution width (RBC) [Ratio] 12.9 % Normal 11.5-15.0 [facility] Comment on above: Order Comment: Speci men Type: BLOOD SPECIMENOrdering Facility: [facility] Address: [address] [place] [address] Performed By: #### 5 8410-2 ####[facility] [id number] [place] [address] [place] Hematocrit (Bld) [Volume fraction] 36.1 % Normal 36.0-46.0 [facility] Comment on above: Order Comment: Speci men Type: BLOOD SPECIMENOrdering Facility: [facility] Address: [address] [place] [address] Performed By: #### 5 8410-2 ####[facility] LABIA [id number] [place] [address] [place] Hemoglobin (Bld) [Mass/Vol] 11.9 g/dL Normal 11.5-15.5 [facility] Comment on above: Order Comment: Speci men Type: BLOOD SPECIMENOrdering Facility: [facility] Address: [address] [place] [address] Performed By: #### 5 8410-2 ####[facility] LABIA [id number] [place] [address] [place] MCH (RBC) [Entitic mass] 29.5 pg Normal 26.0-34.0 [facility] Comment on above: Order Comment: Speci men Type: BLOOD SPECIMENOrdering Facility: [facility] Address: [address] [place] [address] Performed By: #### 5 8410-2 ####[facility] LABCLIA [id number] [place] [address] [place] MCHC (RBC) [Mass/Vol] 33.0 g/dL Normal 30.5-36.0 [facility] Comment on above: Order Comment: Speci men Type: BLOOD SPECIMENOrdering Facility: [facility] Address: [address] [place] [address] Performed By: #### 5 8410-2 ####[facility] LABIA [id number] [place] [address] [place] MCV (RBC) [Entitic vol] 89.4 fL Normal 80.0-100.0 [facility] Comment on above: Order Comment: Speci men Type: BLOOD SPECIMENOrdering Facility: [facility] Address: [address] [place] [address] Performed By: #### 5 8410-2 ####[facility] LABIA [id number] [place] [address] [place] Nucleated RBC (Bld) [#/Vol] 10*3/uL Normal <0.01 [facility] Comment on above: Order Comment: Speci men Type: BLOOD SPECIMENOrdering Facility: [facility] Address: [address] [place] [address] Performed By: #### 5 8410-2 ####[facility] LABCLIA [id number] [place] [address] [place] Platelet mean volume (Bld) [Entitic vol] 10.2 fL Normal 9.0-12.7 [facility] Comment on above: Order Comment: Speci men Type: BLOOD SPECIMENOrdering Facility: [facility] Address: [address] [place] [address] Performed By: #### 5 8410-2 ####[facility] LABCLIA [id number] [place] [address] [place] Platelets (Bld) [#/Vol] 175 10*3/uL Normal 150-400 [facility] Comment on above: Order Comment: Speci men Type: BLOOD SPECIMENOrdering Facility: [facility] Address: [address] [place] [address] Performed By: #### 5 8410-2 ####[facility] LABCLIA [id number] [place] [address] [place] RBC (Bld) [#/Vol] 4.04 10*6/uL Normal 3.90-5.20 [facility] Comment on above: Order Comment: Speci men Type: BLOOD SPECIMENOrdering Facility: [facility] Address: [address] [place] [address] Performed By: #### 5 8410-2 ####[facility] LABCLIA [id number] [place] [address] [place] WBC (Bld) [#/Vol] 6.11 10*3/uL Normal 3.70-11.00 [facility] Comment on above: Order Comment: Speci men Type: BLOOD SPECIMENOrdering Facility: [facility] Address: [address] [place] [address] Performed By: #### 5 8410-2 ####[facility] LABIA [id number] [place] [id number] [place] CNDSon 08-31-[address] [facility] Comprehensive metabolic 2000 panelon 08-31-2023 Albumin [Mass/Vol] 3.5 g/dL Low 3.9-4.9 [facility] Comment on above: Order Comment: Speci men Type: BLOOD SPECIMENOrdering Facility: [facility] Address: [address] [place] [address] Performed By: #### 1 23-9, ####[facility] LABCLIA [id number] [address] [address] [place] ALP [Catalytic activity/Vol] 52 U/L Normal 34-123 [facility] Comment on above: Order Comment: Speci men Type: BLOOD SPECIMENOrdering Facility: [facility] Address: [address] [place] [address] Performed By: #### 1 23-9, ####[facility] LABCLIA [id number] [place] [address] [place] ALT [Catalytic activity/Vol] 24 U/L Normal 7-38 [facility] Comment on above: Order Comment: Speci men Type: BLOOD SPECIMENOrdering Facility: [facility] Address: [address] [place] [address] Performed By: #### 1 9, ####[facility] LABIA [id number] [place] [id number] [place] Anion gap [Moles/Vol] 9 mmol/L Normal 9-18 [facility] [facility] Comment on above: Order Comment: Speci men Type: BLOOD SPECIMENOrdering Facility: [facility] Address: [address] [place] [address] Performed By: #### 1 239, ####[facility] LABCLIA [id number] [place] [address] [place] AST [Catalytic activity/Vol] 20 U/L Normal 13-35 [facility] Comment on above: Order Comment: Speci men Type: BLOOD SPECIMENOrdering Facility: [facility] Address: [address] [id number] Performed By: #### 1 9123-9, ####[facility] LABCLIA [id number] [address] [address] [place] Bilirubin [Mass/Vol] 0.5 mg/dL Normal 0.2-1.3 [facility] Comment on above: Order Comment: Speci men Type: BLOOD SPECIMENOrdering Facility: [facility] Address: [address] [place] [address] Performed By: #### 1 9123-9, ####[facility] LABCLIA [id number] [place] [address] [place] Calcium [Mass/Vol] 9.2 mg/dL Normal 8.5-10.2 [facility] Comment on above: Order Comment: Speci men Type: BLOOD SPECIMENOrdering Facility: [facility] Address: [address] [place] [address] Performed By: #### 1 9123-9, ####[facility] LABCLIA [id number] [place] [address] [place] Chloride [Moles/Vol] 103 mmol/L Normal 97-105 [facility] Comment on above: Order Comment: Speci men Type: BLOOD SPECIMENOrdering Facility: [facility] Address: [address] [place] [address] Performed By: #### 1 9123-9, ####[facility] LABCLIA [id number] [place] [address] [place] CO2 [Moles/Vol] 25 mmol/L Normal 22-30 [facility] Comment on above: Order Comment: Speci men Type: BLOOD SPECIMENOrdering Facility: [facility] Address: [address] [place] [address] Performed By: #### 1 9123-9, ####[facility] LABCLIA [id number] [place] [address] [place] Creatinine [Mass/Vol] 0.90 mg/dL Normal 0.58-0.96 [facility] Comment on above: Order Comment: Speci men Type: BLOOD SPECIMENOrdering Facility: [facility] Address: [address] [place] [address] Performed By: #### 1 9123-9, 50217-5 ####[facility] LABCLIA [id number] [place] [address] [place] Creatinine and Glomerular filtration rate.predicted panel (S/P/Bld) 67 mL/min/1.73m??? Normal >=60 [facility] Comment on above: Order Comment: Nichole becerra Type: BLOOD SPECIMENOrdering Facility: [facility] Address: [address] [place] [address] Result Comment: Shelley mated Glomerular Filtration Rate [...] actual GFR. Performed By: #### 1 9123-9, 04305-6 ####[facility] LABCLIA [id number] [place] [address] [place] Glucose [Mass/Vol] 85 mg/dL Normal 74-99 [facility] Comment on above: Order Comment: Nichole becerra Type: BLOOD SPECIMENOrdering Facility: [facility] Address: [address] [place] [address] Result Comment: The [place] [employer] (ADA) provides guidance for cutoff [...] Standards of Medical Care in Diabetes 2016, [place] [employer]. Diabetes Care. 2016.39(Suppl 1). Performed By: #### 1 9123-9, 30546-8 ####[facility] LABCLIA [id number] [place] [address] [place] Potassium [Moles/Vol] 4.3 mmol/L Normal 3.7-5.1 [facility] Comment on above: Order Comment: Speci men Type: BLOOD SPECIMENOrdering Facility: [facility] Address: [address] [place] [address] Performed By: #### 1 9123-9, ####[facility] LABCLIA [id number] [place] [address] [place] Protein [Mass/Vol] 5.9 g/dL Low 6.3-8.0 [facility] Comment on above: Order Comment: Speci men Type: BLOOD SPECIMENOrdering Facility: [facility] Address: [address] [place] [address] Performed By: #### 1 23-9, ####[facility] LABCLIA [id number] [place] [address] [place] Sodium [Moles/Vol] 137 mmol/L Normal 136-144 [facility] Comment on above: Order Comment: Speci men Type: BLOOD SPECIMENOrdering Facility: [facility] Address: [address] [place] [address] Performed By: #### 1 239, 70767-4 ####[facility] LABCLIA [id number] [address] [address] [place] Urea nitrogen [Mass/Vol] 16 mg/dL Normal 7-21 [facility] Comment on above: Order Comment: Speci men Type: BLOOD SPECIMENOrdering Facility: [facility] Address: [address] [place] [address] Performed By: #### 1 9123-9, 19593-5 ####[facility] LABCLIA [id number] [place] [address] [place] Magnesium SerPl-mCncon 08-31 Magnesium [Mass/Vol] 2.2 mg/dL Normal 1.7-2.3 [facility] Comment on above: Order Comment: Speci men Type: BLOOD SPECIMENOrdering Facility: [facility] Address: [place] [address] Performed By: #### 1 9123-9, 46472-7 ####[facility] LABCLIA [id number] [place] [address] [place] NUTRITIONon 08-31-[address] [facility] PT EDon 08-31-[address] [facility] PT ED Normal [facility] FEMALE PELVIS TRANSABD LT Don 08-31-2023 FEMALE PELVIS TRANSABD LTD Normal [facility] FEMALE PELVIS TRANSVAGon 08-31-2023 FEMALE PELVIS TRANSVAG Normal [facility] CBC panel Auto (Bld)on 08-30 Erythrocyte distribution width (RBC) [Ratio] 13.1 % Normal 11.5-15.0 [facility] Comment on above: Order Comment: Speci men Type: BLOOD SPECIMENOrdering Facility: [facility] Address: [place] [address] Performed By: #### 5 8410-2 ####[facility] LABCLIA [id number] [place] [address] [place] Hematocrit (Bld) [Volume fraction] 38.9 % Normal 36.0-46.0 [facility] Comment on above: Order Comment: Speci men Type: BLOOD SPECIMENOrdering Facility: [facility] Address: [place] [address] Performed By: #### 5 8410-2 ####[facility] LABCLIA [id number] [place] [id number] [place] Hemoglobin (Bld) [Mass/Vol] 12.6 g/dL Normal 11.5-15.5 [facility] Comment on above: Order Comment: Speci men Type: BLOOD SPECIMENOrdering Facility: [facility] Address: [address] [place] [address] Performed By: #### 5 8410-2 ####[facility] LABIA [id number] [place] [address] [place] MCH (RBC) [Entitic mass] 29.9 pg Normal 26.0-34.0 [facility] Comment on above: Order Comment: Speci men Type: BLOOD SPECIMENOrdering Facility: [facility] Address: [address] [place] [address] Performed By: #### 5 8410-2 ####[facility] LABIA [id number] [place] [address] [place] MCHC (RBC) [Mass/Vol] 32.4 g/dL Normal 30.5-36.0 [facility] Comment on above: Order Comment: Speci men Type: BLOOD SPECIMENOrdering Facility: [facility] Address: [address] [place] [address] Performed By: #### 5 8410-2 ####[facility] LABIA [id number] [place] [address] [place] MCV (RBC) [Entitic vol] 92.2 fL Normal 80.0-100.0 [facility] Comment on above: Order Comment: Speci men Type: BLOOD SPECIMENOrdering Facility: [facility] Address: [address] [place] [address] Performed By: #### 5 8410-2 ####[facility] LABIA [id number] [place] [address] [place] Nucleated RBC (Bld) [#/Vol] 10*3/uL Normal <0.01 [facility] Comment on above: Order Comment: Speci men Type: BLOOD SPECIMENOrdering Facility: [facility] Address: [address] [place] [address] Performed By: #### 5 8410-2 ####[facility] LABCLIA [id number] [place] [address] [place] Platelet mean volume (Bld) [Entitic vol] 10.4 fL Normal 9.0-12.7 [facility] Comment on above: Order Comment: Speci men Type: BLOOD SPECIMENOrdering Facility: [facility] Address: [address] [place] [address] Performed By: #### 5 8410-2 ####[facility] LABCLIA [id number] [place] [address] [place] Platelets (Bld) [#/Vol] 185 10*3/uL Normal 150-400 [facility] Comment on above: Order Comment: Speci men Type: BLOOD SPECIMENOrdering Facility: [facility] Address: [address] [place] [address] Performed By: #### 5 8410-2 ####[facility] LABIA [id number] [place] [address] [place] RBC (Bld) [#/Vol] 4.22 10*6/uL Normal 3.90-5.20 [facility] Comment on above: Order Comment: Speci men Type: BLOOD SPECIMENOrdering Facility: [facility] Address: [address] [place] [address] Performed By: #### 5 8410-2 ####[facility] LABIA [id number] [place] [address] [place] WBC (Bld) [#/Vol] 6.51 10*3/uL Normal 3.70-11.00 [facility] Comment on above: Order Comment: Speci men Type: BLOOD SPECIMENOrdering Facility: [facility] Address: [address] [place] [address] Performed By: #### 5 8410-2 ####[facility] LABIA [id number] [place] [id number] [place] CNCOon 08-30-[address] [facility] CONSULT PROGon 08-30-[address] [facility] Comprehensive metabolic 2000 panelon 08-30-2023 Albumin [Mass/Vol] 3.9 g/dL Normal 3.9-4.9 [facility] Comment on above: Order Comment: Speci men Type: BLOOD SPECIMENOrdering Facility: [facility] Address: [address] [place] [address] Performed By: #### 1 9123-9, 73983-1 ####[facility] LABCLIA [id number] [place] [address] [place] ALP [Catalytic activity/Vol] 65 U/L Normal 34-123 [facility] Comment on above: Order Comment: Speci men Type: BLOOD SPECIMENOrdering Facility: [facility] Address: [address] [place] [address] Performed By: #### 1 9123-9, 94011-0 ####[facility] LABCLIA [id number] [place] [id number] [place] ALT [Catalytic activity/Vol] 28 U/L Normal 7-38 [facility] Comment on above: Order Comment: Speci men Type: BLOOD SPECIMENOrdering Facility: [facility] Address: [address] [place], [place] [address] Performed By: #### 1 9123-9, 69340-7 ####[facility] LABCLIA [id number] [place] [id number] [place] Anion gap [Moles/Vol] 9 mmol/L Normal 9-18 [facility] Comment on above: Order Comment: Speci men Type: BLOOD SPECIMENOrdering Facility: [facility] Address: [address] [place] [address] Performed By: #### 1 9123-9, 24184-7 ####[facility] LABCLIA [id number] [address] [address] [place] AST [Catalytic activity/Vol] 24 U/L Normal 13-35 [facility] Comment on above: Order Comment: Speci men Type: BLOOD SPECIMENOrdering Facility: [facility] Address: [address] [place] [address] Performed By: #### 1 9123-9, ####[facility] LABCLIA [id number] [place] [address] [place] Bilirubin [Mass/Vol] 0.5 mg/dL Normal 0.2-1.3 [facility] Comment on above: Order Comment: Speci men Type: BLOOD SPECIMENOrdering Facility: [facility] Address: [address] [place] [address] Performed By: #### 1 9123-9, ####[facility] LABCLIA [id number] [place] [address] [place] Calcium [Mass/Vol] 9.3 mg/dL Normal 8.5-10.2 [facility] Comment on above: Order Comment: Speci men Type: BLOOD SPECIMENOrdering Facility: [facility] Address: [address] [place] [address] Performed By: #### 1 9123-9, ####[facility] LABCLIA [id number] [place] [address] [place] Chloride [Moles/Vol] 103 mmol/L Normal 97-105 [facility] Comment on above: Order Comment: Speci men Type: BLOOD SPECIMENOrdering Facility: [facility] Address: [address] [place] [address] Performed By: #### 1 9123-9, ####[facility] LABCLIA [id number] [place] [address] [place] CO2 [Moles/Vol] 25 mmol/L Normal 22-30 [facility] Comment on above: Order Comment: Speci men Type: BLOOD SPECIMENOrdering Facility: [facility] Address: [address] [place] [address] Performed By: #### 1 9123-9, ####[facility] LABIA [id number] [place] [address] [place] Creatinine [Mass/Vol] 1.11 mg/dL High 0.58-0.96 [facility] Comment on above: Order Comment: Speci men Type: BLOOD SPECIMENOrdering Facility: [facility] Address: [address] [place] [address] Performed By: #### 1 9123-9, ####[facility] LABIA [id number] [place] [address] [place] Creatinine and Glomerular filtration rate.predicted panel (S/P/Bld) 52 mL/min/1.73m??? Low >=60 [facility] Comment on above: Order Comment: Nichole men Type: BLOOD SPECIMENOrdering Facility: [facility] Address: [address] [place] [address] Result Comment: Shelley mated Glomerular Filtration Rate [...] actual GFR. Performed By: #### 1 9123-9, ####[facility] LABIA [id number] [place] [address] [place] Glucose [Mass/Vol] 149 mg/dL High 74-99 [facility] Comment on above: Order Comment: Nichole becerra Type: BLOOD SPECIMENOrdering Facility: [facility] Address: [address] [place] [address] Result Comment: The [place] [employer] (ADA) provides guidance for cutoff [...] Standards of Medical Care in Diabetes 2016, [place] [employer]. Diabetes Care. 2016.39(Suppl 1). Performed By: #### 1 23-9, ####[facility] LABCLIA [id number] [place] [address] [place] Potassium [Moles/Vol] 5.0 mmol/L Normal 3.7-5.1 [facility] Comment on above: Order Comment: Speci men Type: BLOOD SPECIMENOrdering Facility: [facility] Address: [address] [place] [address] Performed By: #### 1 239, ####[facility] LABCLIA [id number] [place] [address] [place] Protein [Mass/Vol] 6.3 g/dL Normal 6.3-8.0 [facility] Comment on above: Order Comment: Speci men Type: BLOOD SPECIMENOrdering Facility: [facility] Address: [address] [place] [address] Performed By: #### 1 9123-04, ####[facility] LABCLIA [id number] [place] [address] [place] Sodium [Moles/Vol] 137 mmol/L Normal 136-144 [facility] Comment on above: Order Comment: Speci men Type: BLOOD SPECIMENOrdering Facility: [facility] Address: [address] [place] [address] Performed By: #### 1 239, ####[facility] LABCLIA [id number] [place] [address] [place] Urea nitrogen [Mass/Vol] 19 mg/dL Normal 7-21 [facility] Comment on above: Order Comment: Speci men Type: BLOOD SPECIMENOrdering Facility: [facility] Address: [address] [place] [address] Performed By: #### 1 9123-9, 46599-1 ####[facility] LABCLIA [id number] [place] [address] [place] Magnesium SerPl-mCncon 08-30 Magnesium [Mass/Vol] 2.2 mg/dL Normal 1.7-2.3 [facility] Comment on above: Order Comment: Speci men Type: BLOOD SPECIMENOrdering Facility: [facility] Address: [address] [place] [address] Performed By: #### 1 9123-9, 20361-4 ####[facility] LABIA [id number] [place] [address] [place] NURSING PROGon 08-30-[address] [facility] NUTRITIONon 08-30-[address] [facility] CBC panel Auto (Bld)on 08-29 Erythrocyte distribution width (RBC) [Ratio] 13.1 % Normal 11.5-15.0 [facility] Comment on above: Order Comment: Speci men Type: BLOOD SPECIMENOrdering Facility: [facility] Address: [address] [place] [address] Performed By: #### 5 8410-2 ####[facility] LABIA [id number] [address] [place] Hematocrit (Bld) [Volume fraction] 39.4 % Normal 36.0-46.0 [facility] Comment on above: Order Comment: Speci men Type: BLOOD SPECIMENOrdering Facility: [facility] Address: [address] [place] [address] Performed By: #### 5 8410-2 ####[facility] LABIA [id number] [place] [address] [place] Hemoglobin (Bld) [Mass/Vol] 13.1 g/dL Normal 11.5-15.5 [facility] Comment on above: Order Comment: Speci men Type: BLOOD SPECIMENOrdering Facility: [facility] Address: [address] [place] [address] Performed By: #### 5 8410-2 ####[facility] LABIA [id number] [place] [address] [place] MCH (RBC) [Entitic mass] 30.0 pg Normal 26.0-34.0 [facility] Comment on above: Order Comment: Speci men Type: BLOOD SPECIMENOrdering Facility: [facility] Address: [address] [place] [address] Performed By: #### 5 8410-2 ####[facility] LABIA [id number] [place] [address] [place] MCHC (RBC) [Mass/Vol] 33.2 g/dL Normal 30.5-36.0 [facility] Comment on above: Order Comment: Speci men Type: BLOOD SPECIMENOrdering Facility: [facility] Address: [address] [place] [address] Performed By: #### 5 8410-2 ####[facility] LABIA [id number] [place] [address] [place] MCV (RBC) [Entitic vol] 90.4 fL Normal 80.0-100.0 [facility] Comment on above: Order Comment: Speci men Type: BLOOD SPECIMENOrdering Facility: [facility] Address: [address] [place] [address] Performed By: #### 5 8410-2 ####[facility] LABIA [id number] [place] [address] [place] Nucleated RBC (Bld) [#/Vol] 10*3/uL Normal <0.01 [facility] Comment on above: Order Comment: Speci men Type: BLOOD SPECIMENOrdering Facility: [facility] Address: [address] [place] [address] Performed By: #### 5 8410-2 ####[facility] LABCLIA [id number] [place] [address] [place] Platelet mean volume (Bld) [Entitic vol] 10.5 fL Normal 9.0-12.7 [facility] Comment on above: Order Comment: Speci men Type: BLOOD SPECIMENOrdering Facility: [facility] Address: [address] [place] [address] Performed By: #### 5 8410-2 ####[facility] LABCLIA [id number] [place] [address] [place] Platelets (Bld) [#/Vol] 192 10*3/uL Normal 150-400 [facility] Comment on above: Order Comment: Speci men Type: BLOOD SPECIMENOrdering Facility: [facility] Address: [address] [place] [address] Performed By: #### 5 8410-2 ####[facility] LABCLIA [id number] [place] [address] [place] RBC (Bld) [#/Vol] 4.36 10*6/uL Normal 3.90-5.20 [facility] Comment on above: Order Comment: Speci men Type: BLOOD SPECIMENOrdering Facility: [facility] Address: [address] [place] [address] Performed By: #### 5 8410-2 ####[facility] LABCLIA [id number] [place] [address] [place] WBC (Bld) [#/Vol] 8.00 10*3/uL Normal 3.70-11.00 [facility] Comment on above: Order Comment: Speci men Type: BLOOD SPECIMENOrdering Facility: [facility] Address: [address] [place] [address] Performed By: #### 5 8410-2 ####[facility] LABCLIA [id number] [place] [address] [place] CT FLANK WO IVCONon 08-29-19 CT FLANK WO IVCON Invalid Interpretation Code [facility] metabolic 2000 panelon 08-29-2023 Albumin [Mass/Vol] 3.9 g/dL Normal 3.9-4.9 [facility] Comment on above: Order Comment: Speci men Type: BLOOD SPECIMENOrdering Facility: [facility] Address: [address] [place] [address] Performed By: #### 2 4323-8, ####[facility] LABCLIA [id number] [place] [address] [place] ALP [Catalytic activity/Vol] 58 U/L Normal 34-123 [facility] Comment on above: Order Comment: Speci men Type: BLOOD SPECIMENOrdering Facility: [facility] Address: [address] [place] [address] Performed By: #### 2 4323-8, ####[facility] LABCLIA [id number] [place] [address] [place] ALT [Catalytic activity/Vol] 33 U/L Normal 7-38 [facility] Comment on above: Order Comment: Speci men Type: BLOOD SPECIMENOrdering Facility: [facility] Address: [address] [place] [address] Performed By: #### 2 4323-8, ####[facility] LABCLIA [id number] [place] [id number] [place] Anion gap [Moles/Vol] 10 mmol/L Normal 9-18 [facility] Comment on above: Order Comment: Speci men Type: BLOOD SPECIMENOrdering Facility: [facility] Address: [address] [place] [address] Performed By: #### 2 432-8, ####[facility] LABCLIA [id number] [address] [address] [place] AST [Catalytic activity/Vol] 25 U/L Normal 13-35 [facility] Comment on above: Order Comment: Speci men Type: BLOOD SPECIMENOrdering Facility: [facility] Address: [address] [place] [address] Performed By: #### 2 4323-03, ####[facility] LABCLIA [id number] [place] [address] [place] Bilirubin [Mass/Vol] 0.7 mg/dL Normal 0.2-1.3 [facility] Comment on above: Order Comment: Speci men Type: BLOOD SPECIMENOrdering Facility: [facility] Address: [address] [place] [address] Performed By: #### 2 4323-03, ####[facility] LABCLIA [id number] [place] [address] [place] Calcium [Mass/Vol] 9.0 mg/dL Normal 8.5-10.2 [facility] [facility] Comment on above: Order Comment: Speci men Type: BLOOD SPECIMENOrdering Facility: [facility] Address: [address] [place], [place] [address] Performed By: #### 2 4323-03, ####[facility] LABCLIA [id number] [place] [id number] [place] Chloride [Moles/Vol] 101 mmol/L Normal 97-105 [facility] Comment on above: Order Comment: Speci men Type: BLOOD SPECIMENOrdering Facility: [facility] Address: [address] [place] [id number] Performed By: #### 2 4328, ####[facility] LABCLIA [id number] [place] [address] [place] CO2 [Moles/Vol] 25 mmol/L Normal 22-30 [facility] Comment on above: Order Comment: Speci men Type: BLOOD SPECIMENOrdering Facility: [facility] Address: [address] [place] [address] Performed By: #### 2 4323-8, ####[facility] LABCLIA [id number] [place] [address] [place] Creatinine [Mass/Vol] 0.87 mg/dL Normal 0.58-0.96 [facility] Comment on above: Order Comment: Speci men Type: BLOOD SPECIMENOrdering Facility: [facility] Address: [address] [place] [address] Performed By: #### 2 43238, ####[facility] LABCLIA [id number] [address] [place] Creatinine and Glomerular filtration rate.predicted panel (S/P/Bld) 70 mL/min/1.73m??? Normal >=60 [facility] Comment on above: Order Comment: Speci men Type: BLOOD SPECIMENOrdering Facility: [facility] Address: [address] [place] [address] Result Comment: Shelley mated Glomerular Filtration Rate [...] actual GFR. Performed By: #### 2 4323-8, ####[facility] LABCLIA [id number] [place] [address] [place] Glucose [Mass/Vol] 85 mg/dL Normal 74-99 [facility] Comment on above: Order Comment: Speci men Type: BLOOD SPECIMENOrdering Facility: [facility] Address: [address] [place] [address] Result Comment: The [place] [employer] (ADA) provides guidance for cutoff [...] Standards of Medical Care in Diabetes 2016, [place] [employer]. Diabetes Care. 2016.39(Suppl 1). Performed By: #### 2 4323-8, ####[facility] LABCLIA [id number] [place] [address] [place] Potassium [Moles/Vol] 4.7 mmol/L Normal 3.7-5.1 [facility] Comment on above: Order Comment: Speci men Type: BLOOD SPECIMENOrdering Facility: [facility] Address: [address] [place] [address] Performed By: #### 2 432-, ####[facility] LABIA [id number] [place] [address] [place] Protein [Mass/Vol] 6.3 g/dL Normal 6.3-8.0 [facility] Comment on above: Order Comment: Speci men Type: BLOOD SPECIMENOrdering Facility: [facility] Address: [address] [place] [address] Performed By: #### 2 4323-, ####[facility] LABCLIA [id number] [place] [address] [place] Sodium [Moles/Vol] 136 mmol/L Normal 136-144 [facility] Comment on above: Order Comment: Speci men Type: BLOOD SPECIMENOrdering Facility: [facility] Address: [address] [place] [phone] Performed By: #### 2 4323-8, 74099-7 ####[facility] LABCLIA [id number] [facility] [place] [id number] [place] Urea nitrogen [Mass/Vol] 15 mg/dL Normal 7-21 [facility] Comment on above: Order Comment: Speci men Type: BLOOD SPECIMENOrdering Facility: [facility] Address: [address] [place] [phone] Performed By: #### 2 4323-8, ####[facility] LABCLIA [id number] [place] [address] [place] DIGOXIN/LANOXINon 08-29-2023 Digoxin [Mass/Vol] 1.0 ng/mL Normal 0.6-1.2 [facility] Comment on above: Order Comment: Speci men Type: BLOOD SPECIMENOrdering Facility: [facility] Address: [address] [facility] [address] Result Comment: Prov ided therapeutic concentrations are based on the 2008 ESC Guidelines for the Diagnosis and Treatment of Acute and Chronic Heart Failure.Reference ranges and high/low indicator flags are provided as general guidelines only. The treating physician must determine appropriate target levels/dosing based on the specific clinical situation. Performed By: #### D IG ####[facility] LABCLIA [id number] [place] [id number] [place] Magnesium SerPl-mCncon 08-29 Magnesium [Mass/Vol] 2.2 mg/dL Normal 1.7-2.3 [facility] Comment on above: Order Comment: Speci men Type: BLOOD SPECIMENOrdering Facility: [facility] Address: [address] [place] [phone] Performed By: #### 2 4323-8, ####[facility] LABCLIA [id number] [facility] [place] [id number] [place] NUTRITIONon 08-29-[address] [facility] THYROID PEROXIDASE ANTIBODY BLOODon 08-29-2023 TPO Ab Qn [IU]/mL Normal <5.6 [facility] Comment on above: Order Comment: Speci men Type: BLOOD SPECIMENOrdering Facility: [facility] Address: [address] [place] [address] Result Comment: Thyr oid Peroxidase Antibody test is used as an aid in diagnosis of autoimmune thyroid disease. Clinical correlation is required. Performed By: #### M ICRO ####[facility] LABCLIA [id number] [place] [address] [place] ANES POSTPROC EVALon 024 ANES POSTPROC EVAL Normal [facility] ANES PRE-OPon 08-28-2023 ANES PRE-OP Normal [facility] CASE MANAGEMon 08-28-[address] [facility] CBC panel Auto (Bld)on 08-28 Erythrocyte distribution width (RBC) [Ratio] 13.1 % Normal 11.5-15.0 [facility] Comment on above: Order Comment: Speci men Type: BLOOD SPECIMENOrdering Facility: [facility] Address: [address] [place] [address] Performed By: #### 5 8410-2 ####[facility] LABIA [id number] [place] [address] [place] Hematocrit (Bld) [Volume fraction] 37.8 % Normal 36.0-46.0 [facility] Comment on above: Order Comment: Speci men Type: BLOOD SPECIMENOrdering Facility: [facility] Address: [address] [place] [address] Performed By: #### 5 8410-2 ####[facility] LABIA [id number] [place] [address] [place] Hemoglobin (Bld) [Mass/Vol] 12.3 g/dL Normal 11.5-15.5 [facility] Comment on above: Order Comment: Speci men Type: BLOOD SPECIMENOrdering Facility: [facility] Address: [address] [place] [address] Performed By: #### 5 8410-2 ####[facility] LABIA [id number] [place] [address] [place] MCH (RBC) [Entitic mass] 29.5 pg Normal 26.0-34.0 [facility] Comment on above: Order Comment: Speci men Type: BLOOD SPECIMENOrdering Facility: [facility] Address: [address] [place] [address] Performed By: #### 5 8410-2 ####[facility] LABIA [id number] [place] [address] [place] MCHC (RBC) [Mass/Vol] 32.5 g/dL Normal 30.5-36.0 [facility] Comment on above: Order Comment: Speci men Type: BLOOD SPECIMENOrdering Facility: [facility] Address: [address] [place] [address] Performed By: #### 5 8410-2 ####[facility] LABIA [id number] [place] [address] [place] MCV (RBC) [Entitic vol] 90.6 fL Normal 80.0-100.0 [facility] Comment on above: Order Comment: Speci men Type: BLOOD SPECIMENOrdering Facility: [facility] Address: [address] [place] [address] Performed By: #### 5 8410-2 ####[facility] LABIA [id number] [place] [address] [place] Nucleated RBC (Bld) [#/Vol] 10*3/uL Normal <0.01 [facility] Comment on above: Order Comment: Speci men Type: BLOOD SPECIMENOrdering Facility: [facility] Address: [address] [place] [address] Performed By: #### 5 8410-2 ####[facility] LABCLIA [id number] [place] [address] [place] Platelet mean volume (Bld) [Entitic vol] 10.4 fL Normal 9.0-12.7 [facility] Comment on above: Order Comment: Speci men Type: BLOOD SPECIMENOrdering Facility: [facility] Address: [address] [place] [address] Performed By: #### 5 8410-2 ####[facility] LABIA [id number] [place] [address] [place] Platelets (Bld) [#/Vol] 180 10*3/uL Normal 150-400 [facility] Comment on above: Order Comment: Speci men Type: BLOOD SPECIMENOrdering Facility: [facility] Address: [address] [place] [address] Performed By: #### 5 8410-2 ####[facility] LABCLIA [id number] [place] [address] [place] RBC (Bld) [#/Vol] 4.17 10*6/uL Normal 3.90-5.20 [facility] Comment on above: Order Comment: Speci men Type: BLOOD SPECIMENOrdering Facility: [facility] Address: [address] [place] [address] Performed By: #### 5 8410-2 ####[facility] LABIA [id number] [place] [address] [place] WBC (Bld) [#/Vol] 6.22 10*3/uL Normal 3.70-11.00 [facility] Comment on above: Order Comment: Speci men Type: BLOOD SPECIMENOrdering Facility: [facility] Address: [address] [place] [address] Performed By: #### 5 8410-2 ####[facility] LABCLIA [id number] [place] [address] [place] CNOVon 08-28-[address] [facility] CONSULTon 08-28-[address] [facility] Comprehensive metabolic 2000 panelon 08-28-2023 Albumin [Mass/Vol] 3.5 g/dL Low 3.9-4.9 [facility] Comment on above: Order Comment: Speci men Type: BLOOD SPECIMENOrdering Facility: [facility] Address: [address] [place] [address] Performed By: #### 2 4323-8, 7 ####[facility] LABCLIA [id number] [place] [address] [place] ALP [Catalytic activity/Vol] 52 U/L Normal 34-123 [facility] Comment on above: Order Comment: Speci men Type: BLOOD SPECIMENOrdering Facility: [facility] Address: [address] [place] [address] Performed By: #### 2 4323-8, 7 ####[facility] LABCLIA [id number] [place] [address] [place] ALT [Catalytic activity/Vol] 31 U/L Normal 7-38 [facility] Comment on above: Order Comment: Speci men Type: BLOOD SPECIMENOrdering Facility: [facility] Address: [address] [place] [address] Performed By: #### 2 4323-8, 7 ####[facility] LABCLIA [id number] [place] [address] [place] Anion gap [Moles/Vol] 10 mmol/L Normal 9-18 [facility] Comment on above: Order Comment: Speci men Type: BLOOD SPECIMENOrdering Facility: [facility] Address: [address] [place] [address] Performed By: #### 2 4323-8, 3023-7 ####[facility] LABCLIA [id number] [place] [id number] [place] AST [Catalytic activity/Vol] 26 U/L Normal 13-35 [facility] Comment on above: Order Comment: Speci men Type: BLOOD SPECIMENOrdering Facility: [facility] Address: [address] [place] [phone] Performed By: #### 2 4323-8, 7 ####[facility] LABCLIA [id number] [place] [id number] [place] Bilirubin [Mass/Vol] 0.5 mg/dL Normal 0.2-1.3 [facility] Comment on above: Order Comment: Speci men Type: BLOOD SPECIMENOrdering Facility: [facility] Address: [address] [place] [address] Performed By: #### 2 4323-8, 7 ####[facility] LABCLIA [id number] [place] [address] [place] Calcium [Mass/Vol] 9.5 mg/dL Normal 8.5-10.2 [facility] Comment on above: Order Comment: Speci men Type: BLOOD SPECIMENOrdering Facility: [facility] Address: [address] [place] [address] Performed By: #### 2 4323-8, 7 ####[facility] LABCLIA [id number] [place] [address] [place] Chloride [Moles/Vol] 106 mmol/L High 97-105 [facility] Comment on above: Order Comment: Speci men Type: BLOOD SPECIMENOrdering Facility: [facility] Address: [address] [place] [address] Performed By: #### 2 4323-8, 7 ####[facility] LABCLIA [id number] [place] [id number] [place] CO2 [Moles/Vol] 24 mmol/L Normal 22-30 [facility] Comment on above: Order Comment: Speci men Type: BLOOD SPECIMENOrdering Facility: [facility] Address: [address] [place] [address] Performed By: #### 2 4323-8, 7 ####[facility] LABIA [id number] [address] [address] [place] Creatinine [Mass/Vol] 0.75 mg/dL Normal 0.58-0.96 [facility] Comment on above: Order Comment: Nichole becerra Type: BLOOD SPECIMENOrdering Facility: [facility] Address: [address] [place] [address] Performed By: #### 2 4323-8, 7 ####[facility] LABIA [id number] [place] [address] [place] Creatinine and Glomerular filtration rate.predicted panel (S/P/Bld) 83 mL/min/1.73m??? Normal >=60 [facility] Comment on above: Order Comment: [facility] Type: BLOOD SPECIMENOrdering Facility: [facility] Address: [address] [place] [address] Result Comment: Shelley mated Glomerular Filtration Rate [...] GFR. Performed By: #### 2 4323-8, 7 ####[facility] LABIA [id number] [place] [id number] [place] Glucose [Mass/Vol] 88 mg/dL Normal 74-99 [facility] Comment on above: Order Comment: Speci men Type: BLOOD SPECIMENOrdering Facility: [facility] Address: [address] [place] [address] Result Comment: The [place] [employer] (ADA) provides guidance for cutoff [...] Standards of Medical Care in Diabetes 2016, [place] [employer]. Diabetes Care. 2016.39(Suppl 1). Performed By: #### 2 4323-8, 3024-02 ####[facility] LABCLIA [id number] [place] [address] [place] Potassium [Moles/Vol] 4.6 mmol/L Normal 3.7-5.1 [facility] Comment on above: Order Comment: Speci men Type: BLOOD SPECIMENOrdering Facility: [facility] Address: [address] [place] [address] Performed By: #### 2 4323-8, 3024-02 ####[facility] LABCLIA [id number] [place] [address] [place] Protein [Mass/Vol] 5.9 g/dL Low 6.3-8.0 [facility] Comment on above: Order Comment: Speci men Type: BLOOD SPECIMENOrdering Facility: [facility] Address: [address] [place] [address] Performed By: #### 2 4323-8, 3024-02 ####[facility] LABCLIA [id number] [place] [address] [place] Sodium [Moles/Vol] 140 mmol/L Normal 136-144 [facility] Comment on above: Order Comment: Speci men Type: BLOOD SPECIMENOrdering Facility: [facility] Address: [address] [place] [address] Performed By: #### 2 4323-8, 3024-02 ####[facility] LABCLIA [id number] [address] [address] [place] Urea nitrogen [Mass/Vol] 13 mg/dL Normal 7-21 [facility] Comment on above: Order Comment: Speci men Type: BLOOD SPECIMENOrdering Facility: [facility] Address: [address] [place] [address] Performed By: #### 2 4323-8, 302-7 ####[facility] LABCLIA [id number] [place] [address] [place] EVV34le 08-28-[address] [facility] ECHO TRANSESOPHAGEALon 08-28 [facility] NURSING PROGon 08-28-[address] [facility] PT EDon 08-28-[address] [facility] PT ED Normal [facility] T4 Free SerPl-mCncon 024 Free T4 [Mass/Vol] 1.1 ng/dL Normal 0.9-1.7 [facility] Comment on above: Order Comment: Speci men Type: BLOOD SPECIMENOrdering Facility: [facility] Address: [address] [place] [address] Performed By: #### 2 4323-8, 7 ####[facility] LABCLIA [id number] [place] [address] [place] CBC panel Auto (Bld)on 08-27 Erythrocyte distribution width (RBC) [Ratio] 12.8 % Normal 11.5-15.0 [facility] Comment on above: Order Comment: Speci men Type: BLOOD SPECIMENOrdering Facility: [facility] Address: [address] [place] [address] Performed By: #### 5 8410-2 ####[facility] LABCLIA [id number] [place] [address] [place] Hematocrit (Bld) [Volume fraction] 38.9 % Normal 36.0-46.0 [facility] Comment on above: Order Comment: Speci men Type: BLOOD SPECIMENOrdering Facility: [facility] Address: [address] [place] [address] Performed By: #### 5 8410-2 ####[facility] LABCLIA [id number] [place] [address] [place] Hemoglobin (Bld) [Mass/Vol] 12.7 g/dL Normal 11.5-15.5 [facility] Comment on above: Order Comment: Speci men Type: BLOOD SPECIMENOrdering Facility: [facility] Address: [address] [place] [address] Performed By: #### 5 8410-2 ####[facility] LABIA [id number] [place] [address] [place] MCH (RBC) [Entitic mass] 29.4 pg Normal 26.0-34.0 [facility] Comment on above: Order Comment: Speci men Type: BLOOD SPECIMENOrdering Facility: [facility] Address: [address] [place] [address] Performed By: #### 5 8410-2 ####[facility] LABIA [id number] [place] [address] [place] MCHC (RBC) [Mass/Vol] 32.6 g/dL Normal 30.5-36.0 [facility] Comment on above: Order Comment: Speci men Type: BLOOD SPECIMENOrdering Facility: [facility] Address: [address] [place] [address] Performed By: #### 5 8410-2 ####[facility] LABIA [id number] [place] [address] [place] MCV (RBC) [Entitic vol] 90.0 fL Normal 80.0-100.0 [facility] Comment on above: Order Comment: Speci men Type: BLOOD SPECIMENOrdering Facility: [facility] Address: [address] [place] [address] Performed By: #### 5 8410-2 ####[facility] LABIA [id number] [place] [address] [place] Nucleated RBC (Bld) [#/Vol] 10*3/uL Normal <0.01 [facility] Comment on above: Order Comment: Speci men Type: BLOOD SPECIMENOrdering Facility: [facility] Address: [address] [place] [address] Performed By: #### 5 8410-2 ####[facility] LABCLIA [id number] [place] [address] [place] Platelet mean volume (Bld) [Entitic vol] 10.4 fL Normal 9.0-12.7 [facility] Comment on above: Order Comment: Speci men Type: BLOOD SPECIMENOrdering Facility: [facility] Address: [address] [place] [address] Performed By: #### 5 8410-2 ####[facility] LABCLIA [id number] [place] [address] [place] Platelets (Bld) [#/Vol] 143 10*3/uL Low 150-400 [facility] Comment on above: Order Comment: Speci men Type: BLOOD SPECIMENOrdering Facility: [facility] Address: [address] [place] [address] Performed By: #### 5 8410-2 ####[facility] LABCLIA [id number] [place] [address] [place] RBC (Bld) [#/Vol] 4.32 10*6/uL Normal 3.90-5.20 [facility] Comment on above: Order Comment: Speci men Type: BLOOD SPECIMENOrdering Facility: [facility] Address: [address] [place] [address] Performed By: #### 5 8410-2 ####[facility] LABCLIA [id number] [place] [address] [place] WBC (Bld) [#/Vol] 5.61 10*3/uL Normal 3.70-11.00 [facility] Comment on above: Order Comment: Speci men Type: BLOOD SPECIMENOrdering Facility: [facility] Address: [address] [place] [address] Performed By: #### 5 8410-2 ####[facility] LABCLIA [id number] [address] [address] [place] Comprehensive metabolic 2000 panelon 08-27-2023 Albumin [Mass/Vol] 3.6 g/dL Low 3.9-4.9 [facility] Comment on above: Order Comment: Speci men Type: BLOOD SPECIMENOrdering Facility: [facility] Address: [address] [place] [address] Performed By: #### 2 4323-8, 6-3 ####[facility] LABCLIA [id number] [place] [address] [place] ALP [Catalytic activity/Vol] 59 U/L Normal 34-123 [facility] Comment on above: Order Comment: Speci men Type: BLOOD SPECIMENOrdering Facility: [facility] Address: [address] [place] [address] Performed By: #### 2 4323-8, 6-3 ####[facility] LABCLIA [id number] [address] [place] ALT [Catalytic activity/Vol] 29 U/L Normal 7-38 [facility] Comment on above: Order Comment: Speci men Type: BLOOD SPECIMENOrdering Facility: [facility] Address: [address] [place] [address] Performed By: #### 2 4323-8, 3016-3 ####[facility] LABCLIA [id number] [place] [id number] [place] Anion gap [Moles/Vol] 8 mmol/L Low 9-18 [facility] Comment on above: Order Comment: Speci men Type: BLOOD SPECIMENOrdering Facility: [facility] Address: [address] [place] [id number] Performed By: #### 2 4323, 3016-3 ####[facility] LABCLIA [id number] [address] [address] [place] AST [Catalytic activity/Vol] 27 U/L Normal 13-35 [facility] Comment on above: Order Comment: Speci men Type: BLOOD SPECIMENOrdering Facility: [facility] Address: [address] [place] [address] Performed By: #### 2 4323-8, 3 ####[facility] LABCLIA [id number] [place] [address] [place] Bilirubin [Mass/Vol] 0.5 mg/dL Normal 0.2-1.3 [facility] Comment on above: Order Comment: Speci men Type: BLOOD SPECIMENOrdering Facility: [facility] Address: [address] [place] [address] Performed By: #### 2 43238, 3 ####[facility] LABCLIA [id number] [place] [address] [place] Calcium [Mass/Vol] 9.1 mg/dL Normal 8.5-10.2 [facility] Comment on above: Order Comment: Speci men Type: BLOOD SPECIMENOrdering Facility: [facility] Address: [address] [place] [address] Performed By: #### 2 4323-8, 3 ####[facility] LABCLIA [id number] [place] [id number] [place] Chloride [Moles/Vol] 105 mmol/L Normal 97-105 [facility] Comment on above: Order Comment: Speci men Type: BLOOD SPECIMENOrdering Facility: [facility] Address: [address] [place] [address] Performed By: #### 2 4323-8, 3 ####[facility] LABCLIA [id number] [place] [id number] [place] CO2 [Moles/Vol] 27 mmol/L Normal 22-30 [facility] Comment on above: Order Comment: Speci men Type: BLOOD SPECIMENOrdering Facility: [facility] Address: [address] [place] [address] Performed By: #### 2 4323-8, 3015-3 ####[facility] LABCLIA [id number] [place] [address] [place] Creatinine [Mass/Vol] 0.72 mg/dL Normal 0.58-0.96 [facility] Comment on above: Order Comment: Speci men Type: BLOOD SPECIMENOrdering Facility: [facility] Address: [address] [place] [address] Performed By: #### 2 4323-8, 3 ####[facility] LABCLIA [id number] [place] [address] [place] Creatinine and Glomerular filtration rate.predicted panel (S/P/Bld) 87 mL/min/1.73m??? Normal >=60 [facility] Comment on above: Order Comment: Speci men Type: BLOOD SPECIMENOrdering Facility: [facility] Address: [address] [place] [address] Result Comment: Shelley mated Glomerular Filtration Rate [...] GFR. Performed By: #### 2 4323-8, 3015-3 ####[facility] LABCLIA [id number] [place] [address] [place] Glucose [Mass/Vol] 92 mg/dL Normal 74-99 [facility] Comment on above: Order Comment: Speci men Type: BLOOD SPECIMENOrdering Facility: [facility] Address: [address] [place] [address] Result Comment: The [place] [employer] (ADA) provides guidance for cutoff [...] Standards of Medical Care in Diabetes 2016, [place] [employer]. Diabetes Care. 2016.39(Suppl 1). Performed By: #### 2 4323-8, 3015-3 ####[facility] LABCLIA [id number] [place] [address] [place] Potassium [Moles/Vol] 4.7 mmol/L Normal 3.7-5.1 [facility] Comment on above: Order Comment: Speci men Type: BLOOD SPECIMENOrdering Facility: [facility] Address: [address] [place] [address] Performed By: #### 2 4323-8, 3 ####[facility] LABIA [id number] [place] [address] [place] Protein [Mass/Vol] 5.8 g/dL Low 6.3-8.0 [facility] Comment on above: Order Comment: Speci men Type: BLOOD SPECIMENOrdering Facility: [facility] Address: [address] [place] [address] Performed By: #### 2 4323-8, 6-3 ####[facility] LABIA [id number] [place] [id number] [place] Sodium [Moles/Vol] 140 mmol/L Normal 136-144 [facility] Comment on above: Order Comment: Speci men Type: BLOOD SPECIMENOrdering Facility: [facility] Address: [address] [place] [address] Performed By: #### 2 4323-8, 3016-3 ####[facility] LABCLIA [id number] [place] [address] [place] Urea nitrogen [Mass/Vol] 15 mg/dL Normal 7-21 [facility] Comment on above: Order Comment: Speci men Type: BLOOD SPECIMENOrdering Facility: [facility] Address: [address] [place] [address] Performed By: #### 2 4323-8, 3016-3 ####[facility] LABCLIA [id number] [place] [address] [place] TSH SerPl-aCncon 08-27-2023 TSH Qn 9.850 m[IU]/L High 0.270-4.200 [facility] Comment on above: Order Comment: Speci men Type: BLOOD SPECIMENOrdering Facility: [facility] Address: [address] [place] [address] Performed By: #### 2 4323-8, 3016-3 ####[facility] LABIA [id number] [place] [address] [place] Bacteria Ur Culton Bacteria identified Cx Nom (U) Abnormal [facility] Comment on above: Performed By: #### 6 30-4 ####[facility] LABIA [id number] [place] [address] [place] CBC panel Auto (Bld)on 08-26 Erythrocyte distribution width (RBC) [Ratio] 13.1 % Normal 11.5-15.0 [facility] Comment on above: Order Comment: Speci men Type: BLOOD SPECIMENOrdering Facility: [facility] Address: [address] [place] [address] Performed By: #### 5 8410-2 ####[facility] LABIA [id number] [place] [address] [place] Hematocrit (Bld) [Volume fraction] 38.5 % Normal 36.0-46.0 [facility] Comment on above: Order Comment: Speci men Type: BLOOD SPECIMENOrdering Facility: [facility] Address: [address] [place] [address] Performed By: #### 5 8410-2 ####[facility] [id number] [place] [address] [place] Hemoglobin (Bld) [Mass/Vol] 12.8 g/dL Normal 11.5-15.5 [facility] Comment on above: Order Comment: Speci men Type: BLOOD SPECIMENOrdering Facility: [facility] Address: [address] [place] [address] Performed By: #### 5 8410-2 ####[facility] [id number] [place] [address] [place] MCH (RBC) [Entitic mass] 30.0 pg Normal 26.0-34.0 [facility] Comment on above: Order Comment: Speci men Type: BLOOD SPECIMENOrdering Facility: [facility] Address: [address] [place] [address] Performed By: #### 5 8410-2 ####[facility] LABIA [id number] [place] [address] [place] MCHC (RBC) [Mass/Vol] 33.2 g/dL Normal 30.5-36.0 [facility] Comment on above: Order Comment: Speci men Type: BLOOD SPECIMENOrdering Facility: [facility] Address: [address] [place] [address] Performed By: #### 5 8410-2 ####[facility] LABIA [id number] [place] [address] [place] MCV (RBC) [Entitic vol] 90.4 fL Normal 80.0-100.0 [facility] Comment on above: Order Comment: Speci men Type: BLOOD SPECIMENOrdering Facility: [facility] Address: [address] [place] [address] Performed By: #### 5 8410-2 ####[facility] LABCLIA [id number] [place] [address] [place] Nucleated RBC (Bld) [#/Vol] 10*3/uL Normal <0.01 [facility] Comment on above: Order Comment: Speci men Type: BLOOD SPECIMENOrdering Facility: [facility] Address: [address] [place] [address] Performed By: #### 5 8410-2 ####[facility] LABIA [id number] [place] [address] [place] Platelet mean volume (Bld) [Entitic vol] 10.6 fL Normal 9.0-12.7 [facility] Comment on above: Order Comment: Speci men Type: BLOOD SPECIMENOrdering Facility: [facility] Address: [address] [place] [address] Performed By: #### 5 8410-2 ####[facility] LABIA [id number] [place] [address] [place] Platelets (Bld) [#/Vol] 168 10*3/uL Normal 150-400 [facility] Comment on above: Order Comment: Speci men Type: BLOOD SPECIMENOrdering Facility: [facility] Address: [address] [place] [address] Performed By: #### 5 8410-2 ####[facility] LABIA [id number] [place] [address] [place] RBC (Bld) [#/Vol] 4.26 10*6/uL Normal 3.90-5.20 [facility] Comment on above: Order Comment: Speci men Type: BLOOD SPECIMENOrdering Facility: [facility] Address: [address] [place] [address] Performed By: #### 5 8410-2 ####[facility] LABCLIA [id number] [place] [address] [place] WBC (Bld) [#/Vol] 7.27 10*3/uL Normal 3.70-11.00 [facility] Comment on above: Order Comment: Speci men Type: BLOOD SPECIMENOrdering Facility: [facility] Address: [address] [place] [address] Performed By: #### 5 8410-2 ####[facility] LABCLIA [id number] [place] [address] [place] CONSULTon 08-26-2023 CONSULT Normal [facility] metabolic 2000 panelon 08-26-2023 Albumin [Mass/Vol] 3.5 g/dL Low 3.9-4.9 [facility] Comment on above: Order Comment: Speci men Type: BLOOD SPECIMENOrdering Facility: [facility] Address: [address] [place] [address] Performed By: #### 2 4323-8 ####[facility] LABCLIA [id number] [place] [address] [place] ALP [Catalytic activity/Vol] 60 U/L Normal 34-123 [facility] Comment on above: Order Comment: Speci men Type: BLOOD SPECIMENOrdering Facility: [facility] Address: [address] [place] [address] Performed By: #### 2 4323-8 ####[facility] LABCLIA [id number] [place] [address] [place] ALT [Catalytic activity/Vol] 25 U/L Normal 7-38 [facility] Comment on above: Order Comment: Speci men Type: BLOOD SPECIMENOrdering Facility: [facility] Address: [address] [place] [address] Performed By: #### 2 4323-8 ####[facility] LABCLIA [id number] [place] [address] [place] Anion gap [Moles/Vol] 10 mmol/L Normal 9-18 [facility] Comment on above: Order Comment: Speci men Type: BLOOD SPECIMENOrdering Facility: [facility] Address: [address] [place] [address] Performed By: #### 2 4323-8 ####[facility] LABCLIA [id number] [place] [address] [place] AST [Catalytic activity/Vol] 22 U/L Normal 13-35 [facility] Comment on above: Order Comment: Speci men Type: BLOOD SPECIMENOrdering Facility: [facility] Address: [address] [place] [address] Performed By: #### 2 4323-8 ####[facility] LABCLIA [id number] [place] [address] [place] Bilirubin [Mass/Vol] 0.4 mg/dL Normal 0.2-1.3 [facility] Comment on above: Order Comment: Speci men Type: BLOOD SPECIMENOrdering Facility: [facility] Address: [address] [place] [address] Performed By: #### 2 4323-8 ####[facility] LABCLIA [id number] [place] [address] [place] Calcium [Mass/Vol] 8.9 mg/dL Normal 8.5-10.2 [facility] Comment on above: Order Comment: Speci men Type: BLOOD SPECIMENOrdering Facility: [facility] Address: [address] [place] [address] Performed By: #### 2 4323-8 ####[facility] LABCLIA [id number] [place] [address] [place] Chloride [Moles/Vol] 104 mmol/L Normal 97-105 [facility] Comment on above: Order Comment: Speci men Type: BLOOD SPECIMENOrdering Facility: [facility] Address: [address] [place] [address] Performed By: #### 2 4323-8 ####[facility] LABCLIA [id number] [place] [address] [place] CO2 [Moles/Vol] 26 mmol/L Normal 22-30 [facility] Comment on above: Order Comment: Speci men Type: BLOOD SPECIMENOrdering Facility: [facility] Address: [address] [place] [address] Performed By: #### 2 4323-8 ####[facility] LABCLIA [id number] [place] [address] [place] Creatinine [Mass/Vol] 0.84 mg/dL Normal 0.58-0.96 [facility] Comment on above: Order Comment: Speci men Type: BLOOD SPECIMENOrdering Facility: [facility] Address: [address] [place] [address] Performed By: #### 2 4323-8 ####[facility] LABIA [id number] [place] [address] [place] Creatinine and Glomerular filtration rate.predicted panel (S/P/Bld) 73 mL/min/1.73m??? Normal >=60 [facility] Comment on above: Order Comment: Speci men Type: BLOOD SPECIMENOrdering Facility: [facility] Address: [address] [place] [address] Result Comment: Shelley mated Glomerular Filtration Rate [...] actual GFR. Performed By: #### 2 4323-8 ####[facility] LABIA [id number] [place] [address] [place] Glucose [Mass/Vol] 93 mg/dL Normal 74-99 [facility] Comment on above: Order Comment: Speci men Type: BLOOD SPECIMENOrdering Facility: [facility] Address: [address] [place] [address] Result Comment: The [place] [employer] (ADA) provides guidance for cutoff [...] Standards of Medical Care in Diabetes 2016, [place] [employer]. Diabetes Care. 2016.39(Suppl 1). Performed By: #### 2 4323-8 ####[facility] LABCLIA [id number] [place] [address] [place] Potassium [Moles/Vol] 4.4 mmol/L Normal 3.7-5.1 [facility] Comment on above: Order Comment: Speci men Type: BLOOD SPECIMENOrdering Facility: [facility] Address: [address] [place] [address] Performed By: #### 2 4323-8 ####[facility] LABCLIA [id number] [place] [address] [place] Protein [Mass/Vol] 5.7 g/dL Low 6.3-8.0 [facility] Comment on above: Order Comment: Speci men Type: BLOOD SPECIMENOrdering Facility: [facility] Address: [address] [place] [address] Performed By: #### 2 4323-8 ####[facility] LABCLIA [id number] [place] [address] [place] Sodium [Moles/Vol] 140 mmol/L Normal 136-144 [facility] Comment on above: Order Comment: Speci men Type: BLOOD SPECIMENOrdering Facility: [facility] Address: [address] [place] [address] Performed By: #### 2 4323-8 ####[facility] LABCLIA [id number] [place] [address] [place] Urea nitrogen [Mass/Vol] 19 mg/dL Normal 7-21 [facility] Comment on above: Order Comment: Speci men Type: BLOOD SPECIMENOrdering Facility: [facility] Address: [address] [place] [address] Performed By: #### 2 4323-8 ####[facility] LABIA [id number] [place] [address] [place] CASE MGT INIT ASSESon 2023 CASE MGT INIT ASSES Normal [facility] CBC panel Auto (Bld)on 08-25 Erythrocyte distribution width (RBC) [Ratio] 12.9 % Normal 11.5-15.0 [facility] Comment on above: Order Comment: Speci men Type: BLOOD SPECIMENOrdering Facility: [facility] Address: [address] [place] [address] Performed By: #### 5 8410-2 ####[facility] LABIA [id number] [place] [address] [place] Hematocrit (Bld) [Volume fraction] 37.8 % Normal 36.0-46.0 [facility] Comment on above: Order Comment: Speci men Type: BLOOD SPECIMENOrdering Facility: [facility] Address: [address] [place] [address] Performed By: #### 5 8410-2 ####[facility] LABIA [id number] [place] [address] [place] Hemoglobin (Bld) [Mass/Vol] 12.8 g/dL Normal 11.5-15.5 [facility] Comment on above: Order Comment: Speci men Type: BLOOD SPECIMENOrdering Facility: [facility] Address: [address] [place] [address] Performed By: #### 5 8410-2 ####[facility] LABIA [id number] [place] [address] [place] MCH (RBC) [Entitic mass] 29.9 pg Normal 26.0-34.0 [facility] Comment on above: Order Comment: Speci men Type: BLOOD SPECIMENOrdering Facility: [facility] Address: [address] [place] [address] Performed By: #### 5 8410-2 ####[facility] LABIA [id number] [place] [address] [place] MCHC (RBC) [Mass/Vol] 33.9 g/dL Normal 30.5-36.0 [facility] Comment on above: Order Comment: Speci men Type: BLOOD SPECIMENOrdering Facility: [facility] Address: [address] [place] [address] Performed By: #### 5 8410-2 ####[facility] [id number] [place] [address] [place] MCV (RBC) [Entitic vol] 88.3 fL Normal 80.0-100.0 [facility] Comment on above: Order Comment: Speci men Type: BLOOD SPECIMENOrdering Facility: [facility] Address: [address] [place] [address] Performed By: #### 5 8410-2 ####[facility] [id number] [place] [address] [place] Nucleated RBC (Bld) [#/Vol] 10*3/uL Normal <0.01 [facility] Comment on above: Order Comment: Speci men Type: BLOOD SPECIMENOrdering Facility: [facility] Address: [address] [place] [address] Performed By: #### 5 8410-2 ####[facility] [id number] [place] [address] [place] Platelet mean volume (Bld) [Entitic vol] 10.1 fL Normal 9.0-12.7 [facility] Comment on above: Order Comment: Speci men Type: BLOOD SPECIMENOrdering Facility: [facility] Address: [address] [place] [address] Performed By: #### 5 8410-2 ####[facility] LABCLIA [id number] [place] [address] [place] Platelets (Bld) [#/Vol] 173 10*3/uL Normal 150-400 [facility] Comment on above: Order Comment: Speci men Type: BLOOD SPECIMENOrdering Facility: [facility] Address: [address] [place] [address] Performed By: #### 5 8410-2 ####[facility] LABCLIA [id number] [place] [address] [place] RBC (Bld) [#/Vol] 4.28 10*6/uL Normal 3.90-5.20 [facility] Comment on above: Order Comment: Speci men Type: BLOOD SPECIMENOrdering Facility: [facility] Address: [address] [place] [address] Performed By: #### 5 8410-2 ####[facility] LABCLIA [id number] [place] [address] [place] WBC (Bld) [#/Vol] 6.38 10*3/uL Normal 3.70-11.00 [facility] Comment on above: Order Comment: Speci men Type: BLOOD SPECIMENOrdering Facility: [facility] Address: [address] [place] [address] Performed By: #### 5 8410-2 ####[facility] LABCLIA [id number] [place] [address] [place] Comprehensive metabolic 2000 panelon 08-25-2023 Albumin [Mass/Vol] 3.4 g/dL Low 3.9-4.9 [facility] Comment on above: Order Comment: Speci men Type: BLOOD SPECIMENOrdering Facility: [facility] Address: [address] [place] [address] Performed By: #### 1 9123-9, ####[facility] LABCLIA [id number] [place] [address] [place] ALP [Catalytic activity/Vol] 48 U/L Normal 34-123 [facility] Comment on above: Order Comment: Speci men Type: BLOOD SPECIMENOrdering Facility: [facility] Address: [address] [place] [address] Performed By: #### 1 23-9, ####[facility] LABCLIA [id number] [place] [address] [place] ALT [Catalytic activity/Vol] 26 U/L Normal 7-38 [facility] Comment on above: Order Comment: Speci men Type: BLOOD SPECIMENOrdering Facility: [facility] Address: [address] [place] [address] Performed By: #### 1 23-9, ####[facility] LABCLIA [id number] [place] [address] [place] Anion gap [Moles/Vol] 10 mmol/L Normal 9-18 [facility] Comment on above: Order Comment: Speci men Type: BLOOD SPECIMENOrdering Facility: [facility] Address: [address] [place] [address] Performed By: #### 1 239, ####[facility] LABCLIA [id number] [place] [address] [place] AST [Catalytic activity/Vol] 23 U/L Normal 13-35 [facility] Comment on above: Order Comment: Speci men Type: BLOOD SPECIMENOrdering Facility: [facility] Address: [address] [place] [address] Performed By: #### 1 9123-9, 18960-5 ####[facility] LABCLIA [id number] [place] [address] [place] Bilirubin [Mass/Vol] 0.9 mg/dL Normal 0.2-1.3 [facility] Comment on above: Order Comment: Speci men Type: BLOOD SPECIMENOrdering Facility: [facility] Address: [address] [place] [address] Performed By: #### 1 9123-9, ####[facility] LABCLIA [id number] [place] [address] [place] Calcium [Mass/Vol] 9.0 mg/dL Normal 8.5-10.2 [facility] Comment on above: Order Comment: Speci men Type: BLOOD SPECIMENOrdering Facility: [facility] Address: [address] [place] [address] Performed By: #### 1 9123-9, ####[facility] LABCLIA [id number] [place] [address] [place] Chloride [Moles/Vol] 97 mmol/L Normal 97-105 [facility] Comment on above: Order Comment: Speci men Type: BLOOD SPECIMENOrdering Facility: [facility] Address: [address] [place] [address] Performed By: #### 1 23-9, ####[facility] LABCLIA [id number] [place] [address] [place] CO2 [Moles/Vol] 29 mmol/L Normal 22-30 [facility] Comment on above: Order Comment: Speci men Type: BLOOD SPECIMENOrdering Facility: [facility] Address: [address] [place] [address] Performed By: #### 1 23-9, ####[facility] LABCLIA [id number] [place] [id number] [place] Creatinine [Mass/Vol] 1.02 mg/dL High 0.58-0.96 [facility] Comment on above: Order Comment: Nichole becerra Type: BLOOD SPECIMENOrdering Facility: [facility] Address: [address] [place] [address] Performed By: #### 1 9123-9, 95547-8 ####[facility] LABCLIA [id number] [place] [address] [place] Creatinine and Glomerular filtration rate.predicted panel (S/P/Bld) 57 mL/min/1.73m??? Low >=60 [facility] Comment on above: Order Comment: Nichole becerra Type: BLOOD SPECIMENOrdering Facility: [facility] Address: [address] [place] [address] Result Comment: Shelley mated Glomerular Filtration Rate [...] actual GFR. Performed By: #### 1 9123-9, 95301-6 ####[facility] LABCLIA [id number] [place] [address] [place] Glucose [Mass/Vol] 84 mg/dL Normal 74-99 [facility] Comment on above: Order Comment: Nichole becerra Type: BLOOD SPECIMENOrdering Facility: [facility] Address: [address] [place] [address] Result Comment: The [place] Diabetes Association (ADA) provides guidance for cutoff [...] Standards of Medical Care in Diabetes 2016, [place] [employer]. Diabetes Care. 2016.39(Suppl 1). Performed By: #### 1 9123-9, 93785-9 ####[facility] LABIA [id number] [place] [address] [place] Potassium [Moles/Vol] 3.4 mmol/L Low 3.7-5.1 [facility] Comment on above: Order Comment: Speci men Type: BLOOD SPECIMENOrdering Facility: [facility] Address: [address] [place] [address] Performed By: #### 1 9123-9, 01955-5 ####[facility] LABIA [id number] [place] [address] [place] Protein [Mass/Vol] 5.7 g/dL Low 6.3-8.0 [facility] Comment on above: Order Comment: Speci men Type: BLOOD SPECIMENOrdering Facility: [facility] Address: [address] [place] [address] Performed By: #### 1 239, 18045-4 ####[facility] LABIA [id number] [place] [address] [place] Sodium [Moles/Vol] 136 mmol/L Normal 136-144 [facility] Comment on above: Order Comment: Speci men Type: BLOOD SPECIMENOrdering Facility: [facility] Address: [address] [place] [address] Performed By: #### 1 23-9, 77911-2 ####[facility] LABIA [id number] [place] [address] [place] Urea nitrogen [Mass/Vol] 22 mg/dL High 7-21 [facility] Comment on above: Order Comment: Speci men Type: BLOOD SPECIMENOrdering Facility: [facility] Address: [address] [place] [address] Performed By: #### 1 23-9, 66666-1 ####[facility] LABCLIA [id number] [address] [address] [place] Magnesium SerPl-mCncon 08-25 Magnesium [Mass/Vol] 2.2 mg/dL Normal 1.7-2.3 [facility] Comment on above: Order Comment: Speci men Type: BLOOD SPECIMENOrdering Facility: [facility] Address: [address] [place] [address] Performed By: #### 1 9123-9, 92218-0 ####[facility] LABIA [id number] [place] [id number] [place] POTASSIUM BLDon 08-25-2023 Potassium [Moles/Vol] 4.3 mmol/L Normal 3.7-5.1 [facility] Comment on above: Order Comment: Speci men Type: BLOOD SPECIMENOrdering Facility: [facility] Address: [address] [place] [address] Performed By: #### K 1 ####[facility] [id number] [place] [id number] [place] US KIDNEY/BLADDERon 08-25-19 24 US KIDNEY/BLADDER Normal [facility] CBC W Auto Differential pane l (Bld)on 08-24-2023 Basophils (Bld) [#/Vol] 0.03 10*3/uL Normal <0.11 [facility] Comment on above: Order Comment: Speci men Type: BLOOD SPECIMENOrdering Facility: [facility] Address: [address] [place] [address] Performed By: #### 5 7021-8 ####[facility] LABIA [id number] [place] [id number] [place] Basophils/100 WBC (Bld) 0.4 % Normal [facility] Comment on above: Order Comment: Speci men Type: BLOOD SPECIMENOrdering Facility: [facility] Address: [address] [place] [address] Performed By: #### 5 7021-8 ####[facility] LABCLIA [id number] [place] [address] [place] Differential cell count method Nom (Bld) Auto Normal [facility] Comment on above: Order Comment: Speci men Type: BLOOD SPECIMENOrdering Facility: [facility] Address: [address] [place] [address] Performed By: #### 5 7021-8 ####[facility] LABCLIA [id number] [place] [address] [place] Eosinophils (Bld) [#/Vol] 0.03 10*3/uL Normal <0.46 [facility] Comment on above: Order Comment: Speci men Type: BLOOD SPECIMENOrdering Facility: [facility] Address: [address] [place] [address] Performed By: #### 5 7021-8 ####[facility] LABCLIA [id number] [place] [address] [place] Eosinophils/100 WBC (Bld) 0.4 % Normal [facility] Comment on above: Order Comment: Speci men Type: BLOOD SPECIMENOrdering Facility: [facility] Address: [address] [place] [address] Performed By: #### 5 7021-8 ####[facility] LABCLIA [id number] [place] [address] [place] Erythrocyte distribution width (RBC) [Ratio] 12.7 % Normal 11.5-15.0 [facility] Comment on above: Order Comment: Speci men Type: BLOOD SPECIMENOrdering Facility: [facility] Address: [address] [place] [address] Performed By: #### 5 7021-8 ####[facility] LABCLIA [id number] [place] [address] [place] Hematocrit (Bld) [Volume fraction] 40.4 % Normal 36.0-46.0 [facility] Comment on above: Order Comment: Speci men Type: BLOOD SPECIMENOrdering Facility: [facility] Address: [address] [place] [address] Performed By: #### 5 7021-8 ####[facility] LABIA [id number] [place] [address] [place] Hemoglobin (Bld) [Mass/Vol] 13.2 g/dL Normal 11.5-15.5 [facility] Comment on above: Order Comment: Speci men Type: BLOOD SPECIMENOrdering Facility: [facility] Address: [address] [place] [address] Performed By: #### 5 7021-8 ####[facility] LABIA [id number] [place] [address] [place] Immature granulocytes (Bld) [#/Vol] 10*3/uL Normal <0.10 [facility] Comment on above: Order Comment: Speci men Type: BLOOD SPECIMENOrdering Facility: [facility] Address: [address] [place] [address] Performed By: #### 5 7021-8 ####[facility] LABIA [id number] [place] [address] [place] Immature granulocytes/100 WBC (Bld) 0.3 % Normal [facility] Comment on above: Order Comment: Speci men Type: BLOOD SPECIMENOrdering Facility: [facility] Address: [address] [place] [address] Performed By: #### 5 7021-8 ####[facility] LABIA [id number] [place] [address] [place] Lymphocytes (Bld) [#/Vol] 1.73 10*3/uL Normal 1.00-4.00 [facility] Comment on above: Order Comment: Speci men Type: BLOOD SPECIMENOrdering Facility: [facility] Address: [address] [place] [address] Performed By: #### 5 7021-8 ####[facility] LABCLIA [id number] [place] [address] [place] Lymphocytes/100 WBC (Bld) 23.4 % Normal [facility] Comment on above: Order Comment: Speci men Type: BLOOD SPECIMENOrdering Facility: [facility] Address: [address] [place] [address] Performed By: #### 5 7021-8 ####[facility] LABCLIA [id number] [place] [address] [place] MCH (RBC) [Entitic mass] 29.3 pg Normal 26.0-34.0 [facility] Comment on above: Order Comment: Speci men Type: BLOOD SPECIMENOrdering Facility: [facility] Address: [address] [place] [address] Performed By: #### 5 7021-8 ####[facility] LABIA [id number] [place] [address] [place] MCHC (RBC) [Mass/Vol] 32.7 g/dL Normal 30.5-36.0 [facility] Comment on above: Order Comment: Speci men Type: BLOOD SPECIMENOrdering Facility: [facility] Address: [address] [place] [address] Performed By: #### 5 7021-8 ####[facility] LABIA [id number] [place] [address] [place] MCV (RBC) [Entitic vol] 89.8 fL Normal 80.0-100.0 [facility] Comment on above: Order Comment: Speci men Type: BLOOD SPECIMENOrdering Facility: [facility] Address: [address] [place] [address] Performed By: #### 5 7021-8 ####[facility] LABCLIA [id number] [place] [address] [place] Monocytes (Bld) [#/Vol] 0.77 10*3/uL Normal <0.87 [facility] Comment on above: Order Comment: Speci men Type: BLOOD SPECIMENOrdering Facility: [facility] Address: [address] [place] [address] Performed By: #### 5 7021-8 ####[facility] LABCLIA [id number] [place] [address] [place] Monocytes/100 WBC (Bld) 10.4 % Normal [facility] Comment on above: Order Comment: Speci men Type: BLOOD SPECIMENOrdering Facility: [facility] Address: [address] [place] [address] Performed By: #### 5 7021-8 ####[facility] LABCLIA [id number] [place] [address] [place] Neutrophils (Bld) [#/Vol] 4.82 10*3/uL Normal 1.45-7.50 [facility] Comment on above: Order Comment: Speci men Type: BLOOD SPECIMENOrdering Facility: [facility] Address: [address] [place] [address] Performed By: #### 5 7021-8 ####[facility] LABCLIA [id number] [place] [address] [place] Neutrophils/100 WBC (Bld) 65.1 % Normal [facility] Comment on above: Order Comment: Speci men Type: BLOOD SPECIMENOrdering Facility: [facility] Address: [address] [place] [address] Performed By: #### 5 7021-8 ####[facility] LABCLIA [id number] [place] [address] [place] Nucleated RBC (Bld) [#/Vol] 10*3/uL Normal <0.01 [facility] Comment on above: Order Comment: Speci men Type: BLOOD SPECIMENOrdering Facility: [facility] Address: [address] [place] [address] Performed By: #### 5 7021-8 ####[facility] LABCLIA [id number] [place] [address] [place] Nucleated RBC/100 WBC (Bld) [Ratio] 0.0 /[address] [facility] Comment on above: Order Comment: Speci men Type: BLOOD SPECIMENOrdering Facility: [facility] Address: [address] [place] [address] Performed By: #### 5 7021-8 ####[facility] LABCLIA [id number] [place] [address] [place] Platelet mean volume (Bld) [Entitic vol] 10.4 fL Normal 9.0-12.7 [facility] Comment on above: Order Comment: Speci men Type: BLOOD SPECIMENOrdering Facility: [facility] Address: [address] [place] [address] Performed By: #### 5 7021-8 ####[facility] LABCLIA [id number] [place] [address] [place] Platelets (Bld) [#/Vol] 201 10*3/uL Normal 150-400 [facility] Comment on above: Order Comment: Speci men Type: BLOOD SPECIMENOrdering Facility: [facility] Address: [address] [place] [address] Performed By: #### 5 7021-8 ####[facility] LABCLIA [id number] [place] [address] [place] RBC (Bld) [#/Vol] 4.50 10*6/uL Normal 3.90-5.20 [facility] Comment on above: Order Comment: Speci men Type: BLOOD SPECIMENOrdering Facility: [facility] Address: [address] [place] [address] Performed By: #### 5 7021-8 ####[facility] LABCLIA [id number] [place] [address] [place] WBC (Bld) [#/Vol] 7.40 10*3/uL Normal 3.70-11.00 [facility] Comment on above: Order Comment: Speci men Type: BLOOD SPECIMENOrdering Facility: [facility] Address: [address] [place] [address] Performed By: #### 5 7021-8 ####[facility] LABCLIA [id number] [place] [address] [place] CNPNon 08-24-2023 CNPN Normal [facility] metabolic 2000 panelon 08-24-2023 Albumin [Mass/Vol] 3.8 g/dL Low 3.9-4.9 [facility] Comment on above: Order Comment: Speci men Type: BLOOD SPECIMENOrdering Facility: [facility] Address: [address] [place] [address] Performed By: #### 2 4323-8 ####[facility] LABCLIA [id number] [place] [address] [place] ALP [Catalytic activity/Vol] 61 U/L Normal 34-123 [facility] Comment on above: Order Comment: Speci men Type: BLOOD SPECIMENOrdering Facility: [facility] Address: [address] [place] [address] Performed By: #### 2 4323-8 ####[facility] LABCLIA [id number] [place] [address] [place] ALT [Catalytic activity/Vol] 34 U/L Normal 7-38 [facility] Comment on above: Order Comment: Speci men Type: BLOOD SPECIMENOrdering Facility: [facility] Address: [address] [place] [address] Performed By: #### 2 4323-8 ####[facility] LABCLIA [id number] [place] [address] [place] Anion gap [Moles/Vol] 8 mmol/L Low 9-18 [facility] Comment on above: Order Comment: Speci men Type: BLOOD SPECIMENOrdering Facility: [facility] Address: [address] [place] [address] Performed By: #### 2 4323-8 ####[facility] LABCLIA [id number] [place] [address] [place] AST [Catalytic activity/Vol] 27 U/L Normal 13-35 [facility] Comment on above: Order Comment: Speci men Type: BLOOD SPECIMENOrdering Facility: [facility] Address: [address] [place] [address] Performed By: #### 2 4323-8 ####[facility] LABCLIA [id number] [place] [address] [place] Bilirubin [Mass/Vol] 0.7 mg/dL Normal 0.2-1.3 [facility] Comment on above: Order Comment: Speci men Type: BLOOD SPECIMENOrdering Facility: [facility] Address: [address] [place] [address] Performed By: #### 2 4323-8 ####[facility] LABCLIA [id number] [place] [address] [place] Calcium [Mass/Vol] 9.2 mg/dL Normal 8.5-10.2 [facility] Comment on above: Order Comment: Speci men Type: BLOOD SPECIMENOrdering Facility: [facility] Address: [address] [place] [address] Performed By: #### 2 4323-8 ####[facility] LABCLIA [id number] [place] [address] [place] Chloride [Moles/Vol] 97 mmol/L Normal 97-105 [facility] Comment on above: Order Comment: Speci men Type: BLOOD SPECIMENOrdering Facility: [facility] Address: [address] [place] [address] Performed By: #### 2 4323-8 ####[facility] LABCLIA [id number] [place] [address] [place] CO2 [Moles/Vol] 32 mmol/L High 22-30 [facility] Comment on above: Order Comment: Speci men Type: BLOOD SPECIMENOrdering Facility: [facility] Address: [address] [place] [address] Performed By: #### 2 4323-8 ####[facility] LABCLIA [id number] [place] [address] [place] Creatinine [Mass/Vol] 1.11 mg/dL High 0.58-0.96 [facility] Comment on above: Order Comment: Speci men Type: BLOOD SPECIMENOrdering Facility: [facility] Address: [address] [place] [address] Performed By: #### 2 4323-8 ####[facility] LABCLIA [id number] [place] [address] [place] Creatinine and Glomerular filtration rate.predicted panel (S/P/Bld) 52 mL/min/1.73m??? Low >=60 [facility] Comment on above: Order Comment: Speci men Type: BLOOD SPECIMENOrdering Facility: [facility] Address: [address] [place] [address] Result Comment: Shelley mated Glomerular Filtration Rate [...] actual GFR. Performed By: #### 2 4323-8 ####[facility] LABCLIA [id number] [place] [address] [place] Glucose [Mass/Vol] 123 mg/dL High 74-99 [facility] Comment on above: Order Comment: Speci men Type: BLOOD SPECIMENOrdering Facility: [facility] Address: [address] [place] [address] Result Comment: The [place] [employer] (ADA) provides guidance for cutoff [...] Standards of Medical Care in Diabetes 2016, [place] [employer]. Diabetes Care. 2016.39(Suppl 1). Performed By: #### 2 4323-8 ####[facility] LABCLIA [id number] [place] [address] [place] Potassium [Moles/Vol] 3.7 mmol/L Normal 3.7-5.1 [facility] Comment on above: Order Comment: Speci men Type: BLOOD SPECIMENOrdering Facility: [facility] Address: [address] [place] [address] Performed By: #### 2 4323-8 ####[facility] LABIA [id number] [place] [address] [place] Protein [Mass/Vol] 6.1 g/dL Low 6.3-8.0 [facility] Comment on above: Order Comment: Speci men Type: BLOOD SPECIMENOrdering Facility: [facility] Address: [address] [place] [address] Performed By: #### 2 4323-8 ####[facility] LABCLIA [id number] [place] [address] [place] Sodium [Moles/Vol] 137 mmol/L Normal 136-144 [facility] Comment on above: Order Comment: Speci men Type: BLOOD SPECIMENOrdering Facility: [facility] Address: [address] [place] [address] Performed By: #### 2 4323-8 ####[facility] LABCLIA [id number] [place] [id number] [place] Urea nitrogen [Mass/Vol] 21 mg/dL Normal 7-21 [facility] Comment on above: Order Comment: Speci men Type: BLOOD SPECIMENOrdering Facility: [facility] Address: [address] [place] [address] Performed By: #### 2 4323-8 ####[facility] LABCLIA [id number] [place] [address] [place] DIGOXIN/LANOXINon 08-24-2023 Digoxin [Mass/Vol] 1.1 ng/mL Normal 0.6-1.2 [facility] Comment on above: Order Comment: Speci men Type: BLOOD SPECIMENOrdering Facility: [facility] Address: [address] [place] [address] Result Comment: Prov ided therapeutic concentrations are based on the 2008 ESC Guidelines for the Diagnosis and Treatment of Acute and Chronic Heart Failure.Reference ranges and high/low indicator flags are provided as general guidelines only. The treating physician must determine appropriate target levels/dosing based on the specific clinical situation. Performed By: #### D IG ####[facility] LABCLIA [id number] [place] [address] [place] HISTORY PHYSICALon HISTORY PHYSICAL Normal [facility] URINALYSIS, DIPSTICK ONLYon 08-24-2023 Bilirubin Ql (U) Negative Normal Negative [facility] Comment on above: Order Comment: Speci men Type: URINE SPECIMENOrdering Facility: [facility] Address: [address] [place] [address] Performed By: #### U A ####[facility] LABCLIA [id number] [place] [address] [place] Clarity (Unsp spec) Cloudy Abnormal Clear [facility] Comment on above: Order Comment: Speci men Type: URINE SPECIMENOrdering Facility: [facility] Address: [address] [place] [address] Performed By: #### U A ####[facility] LABCLIA [id number] [place] [address] [place] Color (U) Yellow Normal Yellow [facility] Comment on above: Order Comment: Speci men Type: URINE SPECIMENOrdering Facility: [facility] Address: [address] [place] [address] Performed By: #### U A ####[facility] LABCLIA [id number] [place] [address] [place] Glucose Test strip (U) [Mass/Vol] Negative Normal Negative [facility] Comment on above: Order Comment: Speci men Type: URINE SPECIMENOrdering Facility: [facility] Address: [address] [place] [address] Performed By: #### U A ####[facility] LABCLIA [id number] [place] [address] [place] Hemoglobin Ql (U) Trace Abnormal Negative [facility] Comment on above: Order Comment: Speci men Type: URINE SPECIMENOrdering Facility: [facility] Address: [address] [place] [address] Performed By: #### U A ####[facility] LABCLIA [id number] [address] [place] Ketones Ql (U) Trace Abnormal Negative [facility] Comment on above: Order Comment: Speci men Type: URINE SPECIMENOrdering Facility: [facility] Address: [address] [place] [address] Performed By: #### U A ####[facility] LABCLIA [id number] [address] [place] Leukocyte esterase Test strip Ql (U) 1+ Abnormal Negative [facility] Comment on above: Order Comment: Speci men Type: URINE SPECIMENOrdering Facility: [facility] Address: [address] [place] [address] Performed By: #### U A ####[facility] LABCLIA [id number] [place] [address] [place] Nitrite Ql (U) Negative Normal Negative [facility] Comment on above: Order Comment: Speci men Type: URINE SPECIMENOrdering Facility: [facility] Address: [address] [place] [address] Performed By: #### U A ####[facility] LABIA [id number] [place] [address] [place] pH (U) 5.5 [pH] Normal <8.5 [facility] Comment on above: Order Comment: Speci men Type: URINE SPECIMENOrdering Facility: [facility] Address: [address] [place] [address] Performed By: #### U A ####[facility] [id number] [place] [address] [place] Protein (U) [Mass/Vol] 1+ Abnormal Negative [facility] Comment on above: Order Comment: Speci men Type: URINE SPECIMENOrdering Facility: [facility] Address: [address] [place] [address] Performed By: #### U A ####[facility] [id number] [place] [address] [place] Specific gravity (U) [Rel density] 1.021 Normal 1.005-1.030 [facility] Comment on above: Order Comment: Speci men Type: URINE SPECIMENOrdering Facility: [facility] Address: [address] [place] [address] Performed By: #### U A ####[facility] LABIA [id number] [place] [address] [place] Urobilinogen Ql (U) 1.0 EU/dL Normal 0.2-1.0 EU/dL [facility] Comment on above: Order Comment: Speci men Type: URINE SPECIMENOrdering Facility: [facility] Address: [address] [place] [address] Performed By: #### U A ####[facility] LABCLIA [id number] [place] [address] [place] CBC panel Auto (Bld)on 08-23 Erythrocyte distribution width (RBC) [Ratio] 12.9 % Normal 11.5-15.0 [facility] Comment on above: Order Comment: Speci men Type: BLOOD SPECIMENOrdering Facility: [facility] Address: [address] [place] [address] Performed By: #### 5 8410-2 ####[facility] LABIA [id number] [place] [address] [place] Hematocrit (Bld) [Volume fraction] 43.4 % Normal 36.0-46.0 [facility] Comment on above: Order Comment: Speci men Type: BLOOD SPECIMENOrdering Facility: [facility] Address: [address] [place] [address] Performed By: #### 5 8410-2 ####[facility] LABIA [id number] [place] [address] [place] Hemoglobin (Bld) [Mass/Vol] 14.4 g/dL Normal 11.5-15.5 [facility] Comment on above: Order Comment: Speci men Type: BLOOD SPECIMENOrdering Facility: [facility] Address: [address] [place] [address] Performed By: #### 5 8410-2 ####[facility] LABCLIA [id number] [place] [address] [place] MCH (RBC) [Entitic mass] 30.3 pg Normal 26.0-34.0 [facility] Comment on above: Order Comment: Speci men Type: BLOOD SPECIMENOrdering Facility: [facility] Address: [address] [place] [address] Performed By: #### 5 8410-2 ####[facility] LABCLIA [id number] [place] [address] [place] MCHC (RBC) [Mass/Vol] 33.2 g/dL Normal 30.5-36.0 [facility] Comment on above: Order Comment: Speci men Type: BLOOD SPECIMENOrdering Facility: [facility] Address: [address] [place] [address] Performed By: #### 5 8410-2 ####[facility] LABCLIA [id number] [place] [address] [place] MCV (RBC) [Entitic vol] 91.4 fL Normal 80.0-100.0 [facility] Comment on above: Order Comment: Speci men Type: BLOOD SPECIMENOrdering Facility: [facility] Address: [address] [place] [address] Performed By: #### 5 8410-2 ####[facility] LABCLIA [id number] [place] [address] [place] Nucleated RBC (Bld) [#/Vol] 10*3/uL Normal <0.01 [facility] Comment on above: Order Comment: Speci men Type: BLOOD SPECIMENOrdering Facility: [facility] Address: [address] [place] [address] Performed By: #### 5 8410-2 ####[facility] LABCLIA [id number] [place] [address] [place] Platelet mean volume (Bld) [Entitic vol] 10.5 fL Normal 9.0-12.7 [facility] Comment on above: Order Comment: Speci men Type: BLOOD SPECIMENOrdering Facility: [facility] Address: [address] [place] [address] Performed By: #### 5 8410-2 ####[facility] LABCLIA [id number] [place] [address] [place] Platelets (Bld) [#/Vol] 215 10*3/uL Normal 150-400 [facility] Comment on above: Order Comment: Speci men Type: BLOOD SPECIMENOrdering Facility: [facility] Address: [address] [place] [address] Performed By: #### 5 8410-2 ####[facility] LABIA [id number] [place] [id number] [place] RBC (Bld) [#/Vol] 4.75 10*6/uL Normal 3.90-5.20 [facility] Comment on above: Order Comment: Speci men Type: BLOOD SPECIMENOrdering Facility: [facility] Address: [address] [place] [address] Performed By: #### 5 8410-2 ####[facility] LABIA [id number] [place] [address] [place] WBC (Bld) [#/Vol] 6.24 10*3/uL Normal 3.70-11.00 [facility] Comment on above: Order Comment: Speci men Type: BLOOD SPECIMENOrdering Facility: [facility] Address: [address] [place] [address] Performed By: #### 5 8410-2 ####[facility] LABIA [id number] [place] [id number] [place] CNOVon 08-23-[address] [facility] CNOV Normal [facility] CREATININE BLDon 08-23-2023 Creatinine [Mass/Vol] 0.97 mg/dL High 0.58-0.96 [facility] Comment on above: Order Comment: Speci men Type: BLOOD SPECIMENOrdering Facility: [facility] Address: [address] [place] [address] Performed By: #### C RET1 ####[facility] LABIA [id number] [place] [id number] [place] Creatinine and Glomerular filtration rate.predicted panel (S/P/Bld) 61 mL/min/1.73m??? Normal >=60 [facility] Comment on above: Order Comment: Speci men Type: BLOOD SPECIMENOrdering Facility: [facility] Address: [address] [place] [address] Result Comment: Shelley mated Glomerular Filtration Rate [...] actual GFR. Performed By: #### C RET1 ####[facility] LABIA [id number] [place] [address] [place] CTA CHEST (GATED) W IVCONon 08-23-2023 CTA CHEST (GATED) W IVCON Normal [facility] Comprehensive metabolic 2000 panelon 08-23-2023 Albumin [Mass/Vol] 4.4 g/dL Normal 3.9-4.9 [facility] Comment on above: Order Comment: Speci men Type: BLOOD SPECIMENOrdering Facility: [facility] Address: [address] [place] [address] Performed By: #### 2 4323-8, 99692-0 ####[facility] LABIA [id number] [place] [address] [place] ALP [Catalytic activity/Vol] 66 U/L Normal 34-123 [facility] Comment on above: Order Comment: Speci men Type: BLOOD SPECIMENOrdering Facility: [facility] Address: [address] [place] [address] Performed By: #### 2 4323-8, 39416-3 ####[facility] LABIA [id number] [place] [address] [place] ALT [Catalytic activity/Vol] 40 U/L High 7-38 [facility] Comment on above: Order Comment: Speci men Type: BLOOD SPECIMENOrdering Facility: [facility] Address: [address] [place] [address] Performed By: #### 2 4323-8, 65909-1 ####[facility] LABCLIA [id number] [place] [address] [place] Anion gap [Moles/Vol] 9 mmol/L Normal 9-18 [facility] Comment on above: Order Comment: Speci men Type: BLOOD SPECIMENOrdering Facility: [facility] Address: [address] [place] [address] Performed By: #### 2 4323-8, 78832-8 ####[facility] LABCLIA [id number] [place] [address] [place] AST [Catalytic activity/Vol] 31 U/L Normal 13-35 [facility] Comment on above: Order Comment: Speci men Type: BLOOD SPECIMENOrdering Facility: [facility] Address: [address] [place] [address] Performed By: #### 2 4323-8, 66232-0 ####[facility] LABCLIA [id number] [place] [address] [place] Bilirubin [Mass/Vol] 0.8 mg/dL Normal 0.2-1.3 [facility] Comment on above: Order Comment: Speci men Type: BLOOD SPECIMENOrdering Facility: [facility] Address: [address] [place] [address] Performed By: #### 2 4323-8, 78482-3 ####[facility] LABCLIA [id number] [place] [address] [place] Calcium [Mass/Vol] 9.8 mg/dL Normal 8.5-10.2 [facility] Comment on above: Order Comment: Speci men Type: BLOOD SPECIMENOrdering Facility: [facility] Address: [address] [place] [address] Performed By: #### 2 4323-8, 26318-6 ####[facility] LABCLIA [id number] [place] [address] [place] Chloride [Moles/Vol] 98 mmol/L Normal 97-105 [facility] Comment on above: Order Comment: Speci men Type: BLOOD SPECIMENOrdering Facility: [facility] Address: [address] [place] [address] Performed By: #### 2 4323-8, 63947-4 ####[facility] LABCLIA [id number] [place] [address] [place] CO2 [Moles/Vol] 32 mmol/L High 22-30 [facility] Comment on above: Order Comment: Speci men Type: BLOOD SPECIMENOrdering Facility: [facility] Address: [address] [place] [address] Performed By: #### 2 4323-8, 86255-2 ####[facility] LABCLIA [id number] [place] [address] [place] Creatinine [Mass/Vol] 0.98 mg/dL High 0.58-0.96 [facility] Comment on above: Order Comment: Speci men Type: BLOOD SPECIMENOrdering Facility: [facility] Address: [address] [place] [address] Performed By: #### 2 4323-8, 72662-9 ####[facility] LABCLIA [id number] [place] [address] [place] Creatinine and Glomerular filtration rate.predicted panel (S/P/Bld) 60 mL/min/1.73m??? Normal >=60 [facility] Comment on above: Order Comment: Speci men Type: BLOOD SPECIMENOrdering Facility: [facility] Address: [address] [place] [address] Result Comment: Shelley mated Glomerular Filtration Rate [...] actual GFR. Performed By: #### 2 4323-8, 53120-6 ####[facility] LABCLIA [id number] [place] [address] [place] Glucose [Mass/Vol] 127 mg/dL High 74-99 [facility] Comment on above: Order Comment: Speci men Type: BLOOD SPECIMENOrdering Facility: [facility] Address: [address] [place] [address] Result Comment: The [place] [employer] (ADA) provides guidance for cutoff [...] Standards of Medical Care in Diabetes 2016, [place] [employer]. Diabetes Care. 2016.39(Suppl 1). Performed By: #### 2 4323-8, 58446-1 ####[facility] LABCLIA [id number] [place] [address] [place] Potassium [Moles/Vol] 4.1 mmol/L Normal 3.7-5.1 [facility] Comment on above: Order Comment: Speci men Type: BLOOD SPECIMENOrdering Facility: [facility] Address: [address] [place] [address] Performed By: #### 2 4323-8, 63805-3 ####[facility] LABIA [id number] [place] [address] [place] Protein [Mass/Vol] 6.8 g/dL Normal 6.3-8.0 [facility] Comment on above: Order Comment: Speci men Type: BLOOD SPECIMENOrdering Facility: [facility] Address: [address] [place] [address] Performed By: #### 2 4323-8, 10774-3 ####[facility] LABCLIA [id number] [place] [address] [place] Sodium [Moles/Vol] 139 mmol/L Normal 136-144 [facility] Comment on above: Order Comment: Speci men Type: BLOOD SPECIMENOrdering Facility: [facility] Address: [address] [place] [address] Performed By: #### 2 4323-8, 91590-8 ####[facility] LABCLIA [id number] [place] [address] [place] Urea nitrogen [Mass/Vol] 17 mg/dL Normal 7-21 [facility] Comment on above: Order Comment: Speci men Type: BLOOD SPECIMENOrdering Facility: [facility] Address: [address] [place] [address] Performed By: #### 2 4323-8, 50000-2 ####[facility] LABCLIA [id number] [place] [address] [place] QTF09sp 08-23-[address] [facility] NT-proBNP SerPl-mCncon 08-23 Natriuretic peptide.B prohormone N-Terminal [Mass/Vol] 3265 pg/mL High <450 [facility] Comment on above: Order Comment: Speci men Type: BLOOD SPECIMENOrdering Facility: [facility] Address: [address] [place] [address] Performed By: #### 2 4323-8, 59463-0 ####[facility] LABCLIA [id number] [place] [address] [place] RIGHT HEART CATH REPORTon RIGHT HEART CATH REPORT Normal [facility] US CAROTID ARTERIES [facility]AS LABon 08-23-2023 US CAROTID [facility]ERIES [facility] LAB Normal [facility] CNPNon 08-22-[address] [facility] CNPNon 08-16-[address] [facility] Outside Cardiovascularon Outside Cardiovascular [id number]# 1.00TIFF Normal [facility] Progress Note-Physicianon Progress Note-Physician [id number]#1 .00TIFF Normal [facility] Echocardiogram-Transesophage anamaria 07-28-2023 Echocardiogram-Transe sophageal [id number]# 1.00TIFF Normal [facility] CNPNon 07-24-[address] [facility] Discharge Instructionson Discharge Instructions [id number]# 1.00TIFF Normal [facility] Formson 07-24-2023 Forms [id number]#1 .00TIFF Normal [facility] Consent for Treatmenton Consent for Treatment [id number]#1 .00TIFF [facility] Inpatient Clinical Summaryon 07-21-2023 Inpatient Clinical Summary [address] [address] Clinical Summary Person Information: Name: HARJIT ASENCIO I Age: 73 Years : 1950 Sex: Female PCP: Peggy Nazario MD Marital Status: Race: White Ethnicity: Non- or Language: Trinidadian Visit Id: Visit Reason: I51.9, I42.8 Speciality: Acuity: Enc Type: Ambulatory/Same Day Surgery Med Service: Surgery Arrival: 07/21/2023 06:33:24 Discharge: Dispo Type: Address: [address] [place] [address] [address] [facility] [id number] Provider Notes: Diagnosis: Problems Active Urethral stricture [...] Follow up: With: Address: When: Johan HENRIQUEZ [address] [place] [address] [phone] [employer] (1) Comments: -After your appointment with CC Type Location Start [facility] URO Office Visit [facility] 01/24/2024 2:30 PM 01/24/2024 2:45 PM Confirmed Patient Education Information: CV - Post-Transesophageal Echocardiogram (Custom) Normal [facility] Inpatient Patient Summaryon 07-21-2023 Inpatient Patient Summary [address] [address] Patient Discharge Instructions PERSON INFORMATION Name: HARJIT [...] Follow up: With: Address: When: Johan HENRIQUEZ [address] [place] [address] [phone] [employer] (1) Comments: -After your appointment with CC In the event that this physician does not participate in your insurance network, please consult with your insurance company to find a nearby participating provider. Type Location Start [facility] URO Office Visit [facility] 01/24/2024 2:30 PM 01/24/2024 2:45 PM Confirmed [...] Mouth every day. Refills: 0. Pharmacy Information: [facility] Comment: PATIENT EDUCATION INFORMATION Instructions: [place] POST-TRANSESOPHAGEAL ECHOCARDIOGRAM AFTER THE PROCEDURE: Diet: ? May eat/drink and/or take normal daily medications after 10:45 Activity: ? You should have someone stay with you for the next (more content not included)... Normal [facility] Patient Education - Texton 1 09-21-2022 Patient Education - Text [place] POST-TRANSESOPHAGEAL ECHOCARDIOGRAM AFTER THE PROCEDURE: Diet: [...] Seek Medical Care if: ? Notify your manager enrollment should you have any difficulty swallowing or coughing up blood. ? In the event you are unable to reach your manager enrollment, please call [facility] at [phone] and the holiday detector operator will assist you. [facility] Referrals Officeon Referrals Office [id number]# 1.00TIFF [facility] Consent for Procedure/Surger yon 07-20-2023 Consent for Procedure/Surgery [id number] #1.00TIFF [facility] Consent for Treatmenton 12-0 Consent for Treatment [id number]#1 .00TIFF Normal [facility] Heart and Vascular Office/Cl inic Noteon [...] confirmed by markedly elevated V wave on Comstock-Lois catheter wedge pressure tracing. 5. Normal left [...] The patient wishes to go to the [facility] for mitral and tricuspid valve repair [...] Renal le (more content not included)... Normal [facility] Comment on above: Result Comment: Elec tronically Signed By: MARTINEZ MCMAHON, Johan Patino\.br\Date and Time Signed: 07/20/23 10:38 EST Physician Orderon 07-20-2023 Physician Order [id number] #1.00TIFF Normal [facility] Ambulatory Visit Summaryon 1 09-19-2022 Ambulatory [...] MD Where: [facility] Shira Doty [facility] Patient Educationon 07-19-20 Patient Education Urology [...] including vitamins, herbs, eye drops, creams, and ysgb-hoo-zccubyf medicines. ? Whether you are or may [...] be (more content not included)... Normal [facility] Urology Office/Clinic Noteon 07-19-2023 Urology Office/Clinic Note Chief Complaint f/u for urinary retention HPI Staff Pt was last seen on 04/26/23. Pt was seen at [facility] on 07/07/23. Pt had Robles. placed at [...] of incomplete bladder emptying) Pt presented to [facility] ED 07/03/23 due to urinary retention. Robles [...] [facility] [address], [place] [address]- Additional Instructions: 6 mos Patient Education Urodynamic [...] Oral, BID (more content not included)... Normal [facility] Comment on above: Result Comment: Elec tronically Signed By: CECILIA MCMAHON, Micheline R\.br\Date and Time Signed: 07/19/23 16:01 EST\.br\Electronically Co-Signed By: Felisa Bautista\.br\Date and Time Co-Signed: 07/19/23 15:59 EST Coding Queryon 07-17-2023 Coding Query - From: Natalya Ansari To: JAZM[facility]N [facility], [facility]; Sent: 07/14/2023 12:05:07 EST ! Subject: Coding Query Dr Serrato, In your Progress notes you list- 4. Elevated troponin Secondary to type 2 non-ST segment elevation myocardial infarction from above and mild cad The ekg nor echo showed CO and the Cardiology consult didn't mention it and his recommendations were reviewed and agreed with. Was the CO type II ruled out or should that be coded? Thank you Fiona HIM Coding From: Nahid SERRATO MD To: Kurt Ansarianette; Sent: 07/17/2023 12:28:48 EST Subject: RE: Coding Query Caller Name: HARJIT ASENCIO I; Caller Number: H Type 2 acute NSTEMI due to demand ischemia from A-FIB with RVR. (POA) Normal [facility] ED Note-Physicianon 07-15-20 ED Note-Physician Basic Information Time Seen: Jeff Cross DO 07/07/2023 09:00 Chief Complaint discharged yesterday from [facility], reports can't breathe w/exertion History of Present [...] of 40. Case is discussed with her manager enrollment. She just underwent ischemic evaluation including catheterization [...] HENRIQUEZ In 3 days 07/10/[address] [place] [address]- [phone] Business (1) Additional Instructions: Peggy Nazario In 3 days 07/10/[address] [place] [address]- Business (1) Additional Instructions (more content not included)... [facility] Comment on above: Result Comment: Elec tronically Signed By: Noe Black PA-C\.br\Date and Time Signed: 07/07/23 15:56 EST\.br\Electronically Co-Signed By: Jeff Cross DO\.br\Date and Time Co-Signed: 07/15/23 06:59 EST Cardiovascular Reporton 06-16 Cardiovascular Report [id number]# 2.00TIFF [facility] Nursing Assessmenton 023 Nursing Assessment [id number]# 1.00TIFF [facility] Discharge Instructionson Discharge Instructions [id number]# 1.00TIFF Normal [facility] Auto Diffon 07-07-2023 Basophils/100 WBC (Bld) 0.6 % Normal 0.0-2.0 [facility] Comment on above: Order Comment: Order Added by Discern Expert. Performed By: #### 2 117488, 40452729, 0547952, 5731072, 8774008, 6201711 #### [facility] [address] [place] [address] Basophils/Leukocytes Auto (Bld) [Pure # fraction] 0.0 E9/L Normal 0.0-0.2 [facility] Comment on above: Order Comment: Order Added by Discern Expert. Performed By: #### 2 713976, 19375278, 5188904, 6896766, 9081523, 0674672 #### [facility] [address] [place] [address] Eosinophils/100 WBC (Bld) 1.5 % Normal 0.0-8.0 [facility] Comment on above: Order Comment: Order Added by Discern Expert. Performed By: #### 2 726200, 86471533, 5954590, 9486719, 9251996, 4679738 #### [facility] [address] [place] [address] Eosinophils/Leukocyte s Auto (Bld) [Pure # fraction] 0.1 E9/L Normal 0.0-0.5 [facility] Comment on above: Order Comment: Order Added by Discern Expert. Performed By: #### 2 769211, 38630584, 7495757, 1830258, 5535285, 2397120 #### [facility] [address] [place] [address] Lymphocytes/100 WBC (Bld) 15.3 % Normal 14.0-50.0 [facility] Comment on above: Order Comment: Order Added by Discern Expert. Performed By: #### 2 591604, 54372878, 1383083, 6229248, 3397044, 7252172 #### [facility] [address] [place] [address] Lymphocytes/Leukocyte s Auto (Bld) [Pure # fraction] 1.2 E9/L Normal 1.0-4.0 [facility] Comment on above: Order Comment: Order Added by Discern Expert. Performed By: #### 2 328272, 98631470, 8317812, 4984453, 4265951, 7890216 #### [facility] [address] [place] [address] Monocytes/100 WBC (Bld) 6.4 % Normal 4.0-14.0 [facility] Comment on above: Order Comment: Order Added by Discern Expert. Performed By: #### 2 877175, 34237121, 6638195, 1253531, 7579155, 1594806 #### [facility] [address] [place] [address] Monocytes/Leukocytes Auto (Bld) [Pure # fraction] 0.5 E9/L Normal 0.2-1.0 [facility] Comment on above: Order Comment: Order Added by Discern Expert. Performed By: #### 2 110878, 40002608, 6795491, 1129433, 3955077, 3282262 #### [facility] [address] [place] [address] Neutrophils/100 WBC (Bld) 76.2 % High 36.0-75.0 [facility] Comment on above: Order Comment: Order Added by Discern Expert. Performed By: #### 2 630534, 87781176, 5885296, 8828530, 9470432, 1442782 #### [facility] [address] [place] [address] Neutrophils/Leukocyte s Auto (Bld) [Pure # fraction] 6.1 E9/L Normal 2.0-7.5 [facility] Comment on above: Order Comment: Order Added by Discern Expert. Performed By: #### 2 594700, 14270211, 5801197, 1908448, 5703567, 6443193 #### [facility] [address] [place] [address] BMPon 07-07-2023 Creatinine [Mass/Vol] 0.8 mg/dL Normal 0.5-1.3 [facility] Comment on above: Performed By: #### 2 823856, 64636748, 5645054, 7658529, [id number], [id number] #### [facility] [address] [place] [address] Urea nitrogen [Mass/Vol] 13 mg/dL Normal 5-21 [facility] Comment on above: Performed By: #### 2 894691, 73506179, 4388004, 8555702, 2347408, 3296327 #### [facility] [address] [place] [address] Urea nitrogen/Creatinine [Mass ratio] 16 No Units Normal 10-20 [facility] Comment on above: Performed By: #### 2 731083, 92509202, 5809640, 2626003, 4113064, 9088052 #### [facility] [address] [place] [address] Anion gap [Moles/Vol] 14 mmol/L Normal 6-16 [facility] Comment on above: Performed By: #### 2 317777, 25404081, 5444480, 4128297, 5672092, 7461103 #### [facility] [address] [place] [address] Calcium [Mass/Vol] 8.7 mg/dL Low 8.9-11.1 [facility] Comment on above: Performed By: #### 2 108586, 40623618, 0111992, 6136353, 4228692, 8876570 #### [facility] [address] [place] [address] Chloride [Moles/Vol] 100 mmol/L Low 101-[address] [facility] Comment on above: Performed By: #### 2 889847, 85423930, 9341197, 6707164, 3412930, 1490654 #### [facility] [address] [place] [address] CO2 [Moles/Vol] 26 mmol/L Normal 21-31 [facility] Comment on above: Performed By: #### 2 257526, 89451679, 4965744, 2799194, 6070658, 4346908 #### [facility] [address] [place] [address] Glucose [Mass/Vol] 137 mg/dL Normal 55-199 [facility] Comment on above: Result Comment: If t his glucose result represents a fasting glucose, interpretation should refer to the following reference range: 55-99 mg/dL Performed By: #### 2 361975, 02219234, 6743284, 5411621, 9055882, 0205733 #### [facility] [address] [place] [address] Potassium [Moles/Vol] 4.3 mmol/L Normal 3.5-5.3 [facility] Comment on above: Performed By: #### 2 801899, 38181087, 4497516, 4156776, 4394888, 8461488 #### [facility] [address] [place] [address] Sodium [Moles/Vol] 136 mmol/L Normal 135-145 [facility] Comment on above: Performed By: #### 2 316631, 48066271, 9587899, 9956247, 8827154, 7779865 #### [facility] [address] [place] [address] BNPon 07-07-2023 Natriuretic peptide B (Bld) [Mass/Vol] 756 pg/mL High 5-80 [facility] Comment on above: Performed By: #### 2 083076, 69581795, 7618118, 4640443, 0458783, 6203237 #### [facility] [address] [place] [address] CBC w/ Auto Diffon Erythrocyte distribution width (RBC) [Ratio] 13.8 % Normal 10.9-14.2 [facility] Comment on above: Performed By: #### 2 736376, 34956129, 5290663, 4089669, 1271275, 0976530 #### [facility] [address] [place] [address] Hematocrit (Bld) [Volume fraction] 40.3 % Normal 34.0-46.0 [facility] Comment on above: Performed By: #### 2 042482, 88927254, 6040515, 4036630, 0343399, 3933446 #### [facility] [address] [place], [place] [address] Hemoglobin (Bld) [Mass/Vol] 13.0 g/dL Normal 12.0-16.0 [facility] Comment on above: Performed By: #### 2 863579, 47673946, 3640678, 6871540, 1771510, 0743849 #### [facility] [address] [place] [address] MCH (RBC) [Entitic mass] 29.2 pg Normal 27.0-34.0 [facility] Comment on above: Performed By: #### 2 063231, 29474116, 2634286, 6253533, 2769259, 7972569 #### [facility] [address] [place] [address] MCHC (RBC) [Mass/Vol] 32.3 g/dL Normal 31.4-36.0 [facility] Comment on above: Performed By: #### 2 903465, 13507405, 6442972, 5126629, 9792296, 6148678 #### [facility] [address] [place] [address] MCV (RBC) [Entitic vol] 90.2 fL Normal 80.0-100.0 [facility] Comment on above: Performed By: #### 2 544747, 31126850, 1394463, 5867842, 4184167, 7854158 #### [facility] [address] [place] [address] Platelet mean volume (Bld) [Entitic vol] 8.5 fL Normal 6.4-10.8 [facility] Comment on above: Performed By: #### 2 701408, 19522282, 2826623, 4403965, 6356432, 5275022 #### [facility] [address] [place] [address] Platelets (Bld) [#/Vol] 291.0 E9/L Normal 150.0-500.0 [facility] Comment on above: Performed By: #### 2 561200, 34678047, 8605376, 8555819, 8226966, 4840202 #### [facility] [address] [place] [address] RBC (Bld) [#/Vol] 4.5 E12/L Normal 4.3-5.9 [facility] Comment on above: Performed By: #### 2 419593, 96054381, 4374666, 2459571, 7796014, 5575684 #### [facility] [address] [place] [address] WBC corrected for nucl RBC Auto (Bld) [#/Vol] 8.0 E9/L Normal 4.0-11.0 [facility] Comment on above: Performed By: #### 2 087590, 90451394, 7850591, 1120730, 9792486, 4431459 #### [facility] [address] [place] [address] CHEMISTRYOrdered By: SYSTEM SYSTEM on 07-07-2023 Troponin I.cardiac [Mass/Vol] 42.10 pg/mL Invalid Interpretation Code 10.10 - 27.10 pg/mL [facility] Remisol Comment on above: Result Comment: Crit [...] Sensitivity Troponin I Instructions For Use, Marly[facility] [place], March 2018) Anion gap [Moles/Vol] 14 mmol/L [...] mL/min/1.73 m2 Normal >=59mL/min/1 .73 m2 [facility] Chem S Comment on above: Interpretive Data: C hronic kidney disease could be indicated at eGFR's of less than 60 mL/min/1.73m2. Kidney failure is indicated at less than 15 mL/min/1.73m2. Glucose [Mass/Vol] 137 mg/dL Normal 55 - 199 mg/dL [facility] Remisol Comment on above: Interpretive Data: I f this glucose result represents a fasting glucose, interpretation should refer to the following reference range: 55-99 mg/dL Potassium [Moles/Vol] 4.3 mmol/L Normal 3.5 - 5.3 mmol/L [facility] Remisol Sodium [Moles/Vol] 136 mmol/L Normal 135 - 145 mmol/L [facility] Remisol Troponin I.cardiac [Mass/Vol] 39.60 pg/mL Invalid Interpretation Code 10.10 - 27.10 pg/mL [facility] Remisol Comment on above: Result Comment: Crit [...] mg/dL Normal 5 - 21 mg/dL [facility] Urea nitrogen/Creatinine [Mass ratio] 16 mg/mg Normal 10 - 20 [facility] Remisol CHEMISTRYOrdered By: Margaret Collier on 07-07-2023 Natriuretic peptide B (Bld) [Mass/Vol] 756 pg/mL High 5 - 80 pg/mL [facility] HemeManSS COAGULATIONOrdered By: Fay Tran on 07-07-2023 aPTT Coag (PPP) [Time] 28.4 s Normal 25.1 - 36.5 second(s) [facility] Auto Coag Comment on above: Interpretive Data: [...] same coagulation reagent and instrumentation as [facility]. Currently there are no coagulation studies available worldwide for children to 14 days, and no normal ranges. Heparin therapeutic range (represented by Anti-Factor Xa activity of 0.2 - 0.4 U/mL) corresponds to PTT of 56.6 - 109.0 sec. INR Coag (PPP) [Relative time] 1.0 {INR} Invalid Interpretation Code [facility] Auto Coag Comment on above: Interpretive Data: I NR results are specifically intended to assess patients stabilized on long-term Anticoagulation therapy suggested INR s Less Intensive Anticoagulation 2.0 3.0 Conventional Range 3.0 4.5 PT Coag (PPP) [Time] 11.3 s Normal 9.4 - 1 2.5 second(s) [facility] Auto Coag Comment on above: Interpretive Data: [...] same coagulation reagent and instrumentation as [facility]. Currently there are no coagulation studies available worldwide for children to 14 days, and no normal ranges. Consent for Procedure/Surger yon 07-07-2023 Consent for Procedure/Surgery [id number]# 1.00TIFF Normal [facility] Consent for Treatmenton 06-15 Consent for Treatment [id number]#1 .00TIFF Normal [facility] Discharge Instructionson Discharge Instructions [id number]#1 .00TIFF Normal [facility] ED Clinical Summaryon 2022 ED Clinical Summary [place] [id number] ED Clinical Summary Person Information Name: HARJIT ASENCIO I Patricia/[facility] Age: 73 Years : 1950 Sex: Female Language: Trinidadian PCP: Peggy Nazario MD Marital Status: Visit [...] 07/07/2023 13:04:13 07/07/2023 13:04:13 07/07/2023 13:04:13 ADDRESS: [address] [place] [phone] PHYS DOC NOTES: MEDICAL INFORMATION: Prescriptions Given: [...] up: With: Address: When: Johan HENRIQUEZ [address] [place] [address] [phone] [employer]™ (1) In 3 days 07/10/2023 With: Address: When: Peggy Nazario [address] [place] [address] [employer]™ (1) In 3 days 07/10/2023 DIAGNOSIS: A-fib; Anxiety Normal [facility] ED Note-Nursingon 07-07-2023 ED Note-Nursing discussed in length medications pt needs to take yet today and 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 Normal [facility] ED Patient Education Noteon 07-07-2023 ED [...] signals of the heart. ? An ambulatory lunchroom monitor to record your heart's activity for [...] Trouble breathing. (more content not included)... Normal [facility] ED Patient Summaryon 023 ED Patient Summary [place] [address] Patient Discharge Instructions Person Information Name: HARJIT ASENCIO I Age: 73 Years Arrival Date: 07/07/2023 08:56:07 Discharge Diagnosis: A-fib; Anxiety Primary Care Physician: Peggy Nazario MD Provider Information Primary Provider: Jeff Cross DO [employer] Administrator:Noe Black PA-C The exam and treatment you received in the Emergency Department were for an urgent problem and are not intended as complete care. It is important that you follow up with a doctor, nurse practitioner, or physician?s research study assistant for ongoing care. If your symptoms [...] Address: When: Johan HENRIQUEZ [address] [place] [phone] [employer]™ (1) In 3 days 07/10/2023 With: Address: When: Peggy Nazario [address] [place] [address] [employer]™ (1) In 3 days 07/10/2023 In the event that this physician does not participate in your insurance network, please consult with your insurance company to find a nearby participating provider. Patient Education Materials: Managing Anxiety, Adult; Atrial Fibrillation A MESSAGE TO ALL PATIENTS REGARDING OPIOIDS PRESCRIPTION OPIOIDS: WHAT YOU NEED TO KNOW Prescription opioids can be used to help relieve jsdhcjig-gw-igvycw pain and are often prescribed following a [...] addiction, tel (more content not included)... Normal [facility] HEMATOLOGYOrdered By: SYSTEM SYSTEM on 07-07-2023 [...] 11.0 E9/L [facility] HemeAutoSS Insurance Correspondence Off [facility] 07-07-2023 Insurance Correspondence Office [id number]#1 .00TIFF Normal [facility] Monitor Recordon 07-07-2023 Monitor Record [id number]# 1.00TIFF Normal [facility] Monitor Record [id number]# 1.00TIFF Normal [facility] Monitor Record [id number]# 1.00TIFF Normal [facility] PT & PTTon 07-07-2023 aPTT Coag (PPP) [Time] 28.4 second(s) Normal 25.1-36.5 [facility] Comment on above: Result Comment: Para [...] same coagulation reagent and instrumentation as [facility]. Currently there are no coagulation studies available worldwide for children to 14 days, and no normal ranges. Heparin therapeutic range (represented by Anti-Factor Xa activity of 0.2 - 0.4 U/mL) corresponds to PTT of 56.6 - 109.0 sec. Performed By: #### 2 765134, 25443864, 2172898, 1741533, 8732809, 6434686 #### [facility] [address] [place] [address] INR Coag (PPP) [Relative time] 1.0 {INR} Invalid Interpretation Code [facility] Comment on above: Result Comment: INR results are specifically intended to assess patients stabilized on long-term Anticoagulation therapy suggested INR?s ?Less Intensive Anticoagulation? 2.0 ? 3.0 Conventional Range 3.0 ? 4.5 Performed By: #### 2 696818, 81383716, 5477509, 4754835, 9318789, 4353751 #### [facility] [address] [place] [address] PT Coag (PPP) [Time] 11.3 second(s) Normal 9.4-12.5 [facility] Comment on above: Result Comment: 15 [...] same coagulation reagent and instrumentation as [facility]. Currently there are no coagulation studies available worldwide for children to 14 days, and no normal ranges. Performed By: #### 2 106258, 27498138, 9766569, 8729802, 0160162, 6286173 #### [facility] [address] [place] [address] Troponin 0 Hr.on 07-07-2023 Troponin I.cardiac [Mass/Vol] 39.60 pg/mL Abnormal 10.10-27.10 [facility] Comment on above: Result Comment: Crit [...] Sensitivity Troponin I Instructions For Use, Marlys [place], March 2018) Performed By: #### 2 028673, 85816900, 9209503, 6963640, 3801133, 8503197 #### [facility] [address] [place] [address] Troponin 3 Hr.on 07-07-2023 Troponin I.cardiac [Mass/Vol] 42.10 pg/mL Abnormal 10.10-27.10 [facility] Comment on above: Result Comment: Crit [...] High Sensitivity Troponin I Instructions For Use, [employer], March 2018) Performed By: #### 1 [id number] ####[facility] [address] [place] [address] XR Chest Single Viewon 07-07 XR Chest [...] mGy = na DAP = na Normal [facility] eGFRon 07-07-2023 GFR/1.73 sq M.predicted among non-blacks MDRD (S/P/Bld) [Vol rate/Area] 77 mL/min/1.73 m2 Normal >=59 [facility] Comment on above: Order Comment: Order added by Discern Expert. Result Comment: Biosolids Management Technician luis kidney disease could be indicated at eGFR's of less than 60 mL/min/1.73m2. Kidney failure is indicated at less than 15 mL/min/1.73m2. Performed By: #### 2 803385, 92263459, 8488779, 1692977, 2116844, 5510112 #### [facility] [address] [place] [address] BMPon 07-06-2023 Anion gap [Moles/Vol] 5 mmol/L Low 6-16 [facility] Comment on above: Performed By: #### 2 256192, 50996762, 8313582, 3470671, 3981183, 3255124 #### [facility] [address] [place] [address] Calcium [Mass/Vol] 8.0 mg/dL Low 8.9-11.1 [facility] Comment on above: Performed By: #### 2 490219, 77047904, 4956068, 3335165, 4118224, 9287809 #### [facility] [address] [place] [address] Chloride [Moles/Vol] 109 mmol/L Normal 101-111 [facility] Comment on above: Performed By: #### 2 543502, 35501939, 5699757, 0018865, 8987797, 8900217 #### [facility] [address] [place] [address] CO2 [Moles/Vol] 28 mmol/L Normal 21-31 [facility] Comment on above: Performed By: #### 2 688409, 56981542, 1410714, 9361339, 2681403, 5248418 #### [facility] [address] [place] [address] Creatinine [Mass/Vol] 0.7 mg/dL Normal 0.5-1.3 [facility] Comment on above: Performed By: #### 2 263361, 27539058, 3702154, 6312626, 7171599, 6409703 #### [facility] [address] [place] [address] Glucose [Mass/Vol] 91 mg/dL Normal 55-199 [facility] Comment on above: Result Comment: If t his glucose result represents a fasting glucose, interpretation should refer to the following reference range: 55-99 mg/dL Performed By: #### 2 227340, 95639946, 3233425, 6546900, 4911514, 0213956 #### [facility] [address] [place] [address] Potassium [Moles/Vol] 3.9 mmol/L Normal 3.5-5.3 [facility] Comment on above: Performed By: #### 2 187922, 34800584, 1963517, 0843151, 8818900, 2809501 #### [facility] [address] [place] [address] Sodium [Moles/Vol] 138 mmol/L Normal 135-145 [facility] Comment on above: Performed By: #### 2 860806, 35707550, 1041811, 8337746, 0399073, 7403710 #### [facility] [address] [place] [address] Urea nitrogen [Mass/Vol] 12 mg/dL Normal 5-21 [facility] Comment on above: Performed By: #### 2 815972, 06686747, 9282240, 1457077, 0780600, 3434447 #### [facility] [address] [place] [address] Urea nitrogen/Creatinine [Mass ratio] 17 No Units Normal 10-20 [facility] Comment on above: Performed By: #### 2 576926, 32567649, 8872848, 0421037, 7565267, 0394255 #### [facility] [address] [place] [address] CHEMISTRYOrdered By: SYSTEM SYSTEM on 07-06-2023 Anion gap [Moles/Vol] 5 mmol/L Low 6 - 16 mEq/L [facility] Remisol Calcium [Mass/Vol] 8.0 mg/dL Low 8.9 - 11. 1 mg/dL [facility] Remisol Chloride [Moles/Vol] 109 mmol/L Normal 101 - 1 11 mmol/L [facility] Remisol CO2 [Moles/Vol] 28 mmol/L Normal 21 - 31 mmol/L [facility] Remisol Creatinine [Mass/Vol] 0.7 mg/dL Normal 0.5 - 1.3 mg/dL [facility] Remisol GFR/1.73 sq M.predicted among non-blacks MDRD (S/P/Bld) [Vol rate/Area] 90 mL/min/1.73 m2 Normal >=59mL/min/1 .73 m2 [facility] Chem S Comment on above: Interpretive Data: C hronic kidney disease could be indicated at eGFR's of less than 60 mL/min/1.73m2. Kidney failure is indicated at less than 15 mL/min/1.73m2. Glucose [Mass/Vol] 91 mg/dL Normal 55 - 199 mg/dL [facility] Remisol Comment on above: Interpretive Data: I f this glucose result represents a fasting glucose, interpretation should refer to the following reference range: 55-99 mg/dL Potassium [Moles/Vol] 3.9 mmol/L Normal 3.5 - 5.3 mmol/L [facility] Remisol Sodium [Moles/Vol] 138 mmol/L Normal 135 - 145 mmol/L [facility] Remisol Urea nitrogen [Mass/Vol] 12 mg/dL Normal 5 - 21 mg/dL [facility] Remisol Urea nitrogen/Creatinine [Mass ratio] 17 mg/mg Normal 10 - 20 [facility] Remisol Discharge Note-Nursingon Discharge Note-Nursing HARJIT ASENCIO Joseph :1950 Visit Date:07/02/2023 Inpatient Discharge Instructions Your Care Team Admitting Physician - Noman PATTON DO Consulting Physician - DYLAN MCMAHON, Cody Goff MD, Eb Yeh [facility] Cardio, XXXX Reason for Your Visit I [...] MCMAHON, Micheline Morgan Where: [facility] Shira Doty [facility] Inpatient Clinical Summaryon 07-06-2023 Inpatient Clinical Summary [address] [address] Clinical Summary Person Information: Name: HARJIT ASENCIO I Age: 73 Years : 1950 Sex: Female PCP: Peggy Nazario MD Marital Status: Race: White Ethnicity: Non- or Language: Trinidadian Visit Id: Visit Reason: Genitourinary problem; 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 Speciality: Acuity: Enc Type: Observation Med Service: Medical Arrival: 07/02/2023 21:17:31 Discharge: Dispo Type: Admitted as IP to this Hosp Address: [address] [place] [address] [address] [facility] [id number] Provider Notes: Diagnosis: 1:Atrial fibrillation with RVR; [...] MCMAHON, Eb Yeh; DYLAN MCMAHON, Cody Dumont; [facility] Cardio, XXXX Referring Physician: Follow up: With: Address: When: Johan HENRIQUEZ [address] [place], [place] [phone] Business (1) Within 2 weeks Comments: Call for followup appointment With: Address: When: Peggy Nazario [address] [place] [address] Business (1) 07/10/2023 1:00 PM With: Address: When: Micheline BROOKS [facility], [address], [place] [address] Business (1) Comments: Call for followup appointment re: the indwelling Robles catheter. Type Location Start [facility] Office Visit [facility] WILL Silva 11/22/2023 1:00 PM 11/22/2023 1:15 PM Confirmed Patient Education Information: CV - Cardiovascular Discharge Instructions (Custom) [facility] Inpatient Patient Summaryon 07-06-2023 Inpatient Patient Summary [address] [address] Patient Discharge Instructions PERSON INFORMATION [...] Follow up: With: Address: When: Johan HENRIQUEZ [address] [place] [phone] Business (1) Within 2 weeks Comments: Call for followup appointment With: Address: When: Peggy Nazario [address] [place] [address] Business (1) 07/10/2023 1:00 PM With: Address: When: Micheline BROOKS [facility], [address], [place] [address] Business (1) Comments: Call for followup appointment re: the indwelling Robles catheter. In the event that this physician does not participate in your insurance network, please consult with your insurance company to find a nearby participating provider. Type Location Start [facility] Office Visit [facility] WILL Silva 11/22/2023 1:00 PM 11/22/2023 1:15 PM Confirmed Comment: ELIF Ruiz JOYCE I, have received the attached patient education materials/instruction s and have verbalized understanding: Patient Signature Date Clinican/Nurse Signature Date HERE ARE THE MEDICATION CHANGES THAT OCCURRED DURING YOUR HOSPITAL STAY New Medications [id number], [address] [facility], [place] [phone], [phone] apixaban (Eliquis 5 mg oral tablet) 1 [...] day. Refills (more content not included)... 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 Serrato. Await cardiology to see and anticipate DC home later today. Declines any concerrns or DC needs. Brilinta was priced out yesterday $183 and coupon provided. . PCP verified and insurance information reviewed and DME discussed. Contact information provided and white board updated. Normal [facility] Comment on above: Result Comment: Elec tronically Signed By: Martín ALFORD, Radha\.br\Date and Time Signed: 07/06/23 12:06 EST Monitor Recordon 07-06-2023 Monitor Record [id number]# 1.00TIFF [facility] Monitor Record [id number]# 1.00TIFF [facility] Monitor Record [id number]# 1.00TIFF [facility] Progress Note-Physicianon Progress Note-Physician Assessment/Plan 73-year-old female with history of ureteral stricture with previous dilations, anxiety disorder presented with complaints of urinary hesitancy, constipation, cough and shortness of breath and was admitted to [facility] with acute paroxysmal atrial fibrillation with [...] IV Cardizem drip. Continue on Coreg, digoxin. Command Center Officer debating on starting patient on amiodarone. Eliquis to start in 4 days after cardiac catheterization. Ordered: [facility] Hospital Care/Day Moderate 35 Minutes 14564 2. Acute systolic congestive heart failure (I50.21: Acute systolic (congestive) heart failure) Acute systolic congestive heart failure?present on admission. Seen by manager enrollment and underwent cardiac catheterization that showed mild coronary artery disease. Also shows severe mitral regurgitation and tricuspid regurgitation with ejection fraction of 30 to 35%. Continue on aspirin, Coreg, losartan and Lasix. Ordered: [facility] Hospital Care/Day Moderate 35 Minutes 38105 3. Severe mitral regurgitation (I34.0: Nonrheumatic mitral (valve) insufficiency) As seen on cardiac catheterization. Patient will follow-up with manager enrollment for HAROON and then valvular repair. Command Center Officer also considering transferring patient to or [facility]. Ordered: [facility] Hospital Care/Day Moderate 35 Minutes 17941 4. Elevated troponin (R79.89: Other specified abnormal findings of blood chemistry) Secondary to type II non-ST segment elevation myocardial infarction from above and mild coronary artery disease.. Seen by manager enrollment and underwent cardiac catheterization that showed mild coronary artery disease. Continue on aspirin, Lipitor, and Coreg. Ordered: [facility] Hospital Care/Day Moderate 35 Minutes 85536 5. Mild coronary artery disease (I25.10: Atherosclerotic heart disease of [place] coronary artery without angina pectoris) As seen on cardiac catheterization on 07/05/2023. Continue on Lipitor and aspirin. Ordered: [facility] Hospital Care/Day Moderate 35 Minutes 72826 6. anxiety (F41.9: Anxiety disorder, unspecified) Increase [...] deep vein thrombosis (DVT) prophylaxis (Z79.899: Other emt intermediate (current) drug therapy) SCDs. Eliquis to resume in 4 days. Disposition: Home soon today if heart rate is under good control with plans to follow-up with manager enrollment and urologist as outpatient. However if heart rate is still elevated then we will call [facility] or [facility] to see if we can transfer patient for valve repair/replacement. I discussed the diagnosis and plan of care with the patient at the bedside. Moderate level of MDM based on addressing above issues. This documentation was transcribed using voice recognition software. Several attempts were made to ensure accuracy. However inadvertent computerized music pastor errors may be present. Nahid Serrato. Hospitalist. [...] Panel eGF (more content not included)... Normal [facility] Comment on above: Result Comment: Elec [...] she is going to get to the [facility] or [facility] for mitral valve/tricuspid valve surgery. Despite [...] patient directly to the [facility] or [facility] given her logistic challenges with [...] artery disease (I25.10: Atherosclerotic heart disease of [place] coronary artery without angina pectoris) 6. Pleural effusion (J90: Pleural effusion, not elsewhere classified) 7. Urinary hesitancy (R39.11: Hesitancy of micturition) 8. Other urethral stricture, female (N35.82: Oth (more content not included)... Normal [facility] Comment on above: Result Comment: Elec tronically Signed By: MARTINEZ MCMAHON, Johan Patino\.br\Date and Time Signed: 07/06/23 09:22 EST eGFRon 07-06-2023 GFR/1.73 sq M.predicted among non-blacks MDRD (S/P/Bld) [Vol rate/Area] 90 mL/min/1.73 m2 Normal >=59 [facility] Comment on above: Order Comment: Order Added by Discern Expert. Result Comment: Biosolids Management Technician luis kidney disease could be indicated at eGFR's of less than 60 mL/min/1.73m2. Kidney failure is indicated at less than 15 mL/min/1.73m2. Performed By: #### 2 [id number], [id number], [id number], [id number], [id number], [id number] #### [facility] [address] [place] [address] BMPon 07-05-2023 Anion gap [Moles/Vol] 9 mmol/L Normal 6-16 [facility] Comment on above: Performed By: #### 1 [id number], [id number] ####[facility] [address] [facility] [place] [address] Calcium [Mass/Vol] 8.2 mg/dL Low 8.9-11.1 [facility] Comment on above: Performed By: #### 1 [id number], [id number] ####[facility] [address] [place] [address] Chloride [Moles/Vol] 105 mmol/L Normal 101-111 [facility] Comment on above: Performed By: #### 1 [id number], [id number] ####[facility] [address] [facility] [place] [address] CO2 [Moles/Vol] 27 mmol/L Normal 21-31 [facility] Comment on above: Performed By: #### 1 [id number], [id number] ####[facility] [address] [facility] [address] Creatinine [Mass/Vol] 0.7 mg/dL Normal 0.5-1.3 [facility] Comment on above: Performed By: #### 1 [id number], [id number] ####[facility] [address] [facility] [address] Glucose [Mass/Vol] 115 mg/dL Normal 55-199 [facility] Comment on above: Result Comment: If t his glucose result represents a fasting glucose, interpretation should refer to the following reference range: 55-99 mg/dL Performed By: #### 1 [id number], [id number] ####[facility] [address] [facility] [place] [address] Potassium [Moles/Vol] 4.3 mmol/L Normal 3.5-5.3 [facility] Comment on above: Performed By: #### 1 [id number], [id number] ####[facility] [address] [facility] [address] Sodium [Moles/Vol] 137 mmol/L Normal 135-145 [facility] Comment on above: Performed By: #### 1 [id number], [id number] ####[facility] [address] [place] [address] Urea nitrogen [Mass/Vol] 13 mg/dL Normal 5-21 [facility] Comment on above: Performed By: #### 1 [id number], [id number] ####[facility] [address] [place] [address] Urea nitrogen/Creatinine [Mass ratio] 19 No Units Normal 10-20 [facility] Comment on above: Performed By: #### 1 [id number], [id number] ####[facility] [address] [place] [address] CHEMISTRYOrdered By: SYSTEM SYSTEM on 07-05-2023 Anion gap [Moles/Vol] 9 mmol/L Normal 6 - 16 mEq/L F [facility] Remisol Calcium [Mass/Vol] 8.2 mg/dL Low 8.9 - 11. 1 mg/dL [facility] Remisol Chloride [Moles/Vol] 105 mmol/L Normal 101 - 1 11 mmol/L [facility] Remisol CO2 [Moles/Vol] 27 mmol/L Normal 21 - 31 mmol/L [facility] Remisol Creatinine [Mass/Vol] 0.7 mg/dL Normal 0.5 - 1.3 mg/dL [facility] Remisol GFR/1.73 sq M.predicted among non-blacks MDRD (S/P/Bld) [Vol rate/Area] 90 mL/min/1.73 m2 Normal >=59mL/min/1 .73 m2 [facility] Chem S Comment on above: Interpretive Data: C hronic kidney disease could be indicated at eGFR's of less than 60 mL/min/1.73m2. Kidney failure is indicated at less than 15 mL/min/1.73m2. Glucose [Mass/Vol] 115 mg/dL Normal 55 - 199 mg/dL [facility] Remisol Comment on above: Interpretive Data: I f this glucose result represents a fasting glucose, interpretation should refer to the following reference range: 55-99 mg/dL Potassium [Moles/Vol] 4.3 mmol/L Normal 3.5 - 5.3 mmol/L [facility] Remisol Sodium [Moles/Vol] 137 mmol/L Normal 135 - 145 mmol/L [facility] Remisol Urea nitrogen [Mass/Vol] 13 mg/dL Normal 5 - 21 mg/dL [facility] Remisol Urea nitrogen/Creatinine [Mass ratio] 19 mg/mg Normal 10 - 20 [facility] Remisol CHEMISTRYOrdered By: Lab ROP User on 07-05-2023 Glucose [Mass/Vol] 79 mg/dL Normal 55 - 99 mg/dL [facility] POC Subsection Comment on above: Result Comment: Neli cain RN/ POC Username NIKHIL PAULSON Invalid Interpretation Code [facility] POC Subsection Sodium [Moles/Vol] 987902164418 mmol/L Invalid Interpretation Code [facility] POC Subsection Sodium [Moles/Vol] 777992505 mmol/L Invalid Interpretation Code [facility] POC Subsection Capillary Glucose POCon 06-15 Glucose [Mass/Vol] 79 mg/dL Normal 55-99 [facility] Comment on above: Result Comment: Neli PIÑA Performed By: #### 1 [id number] #### [facility] [address] [place] [address] Cardiovascular Reporton 06-15 Cardiovascular Report [id number]# 1.00TIFF Normal [facility] Monitor Recordon 07-05-2023 Monitor Record [id number]# 1.00TIFF Normal [facility] Monitor Record [id number]# 1.00TIFF Normal [facility] Monitor Record [id number]# 1.00TIFF Normal [facility] Monitor Record [id number]# 1.00TIFF Normal [facility] Monitor Record [id number]# 1.00TIFF Normal [facility] Operative Reporton Operative Report SURGERY DATE: [...] an exchange length J-wire. Next a 4 Vincentian sheath was placed without complications and flushed with heparinized saline. Next the right femoral vein was accessed with a single anterior stick of a Cook needle followed by placement of a short J-wire under fluoroscopic guidance. Next a 7 Vincentian sheath was placed without complications and flushed with heparinized saline. Next a balloon tip Comstock-Lois catheter was advanced under fluoroscopic guidance into [...] by thermal was 2.57. Next a 4 Vincentian angled pigtail catheter was easily advanced into the left ventricular chamber. AO saturation was 84%. PA saturation was 46%. Simultaneous LV and wedge pressure demonstrated a large V wave indicating severe mitral regurgitation. Simultaneous LV and RV pressures demonstrated no overt evidence of pericardial constriction although the patient is in atrial fibrillation making that somewhat problematic. Comstock-Lois catheter was then removed. The LV angiogram performed in the 30 degree right anterior oblique position demonstrated severe global LV dysfunction with an ejection fraction around 25-30%. There was severe mitral regurgitation which completely filled the left atrium after the second beat. There was no significant gradient seen on pullback. Next the pigtail catheter was exchanged over a wire for a 4 Vincentian JL5 catheter. This was easily engaged into [...] exchanged over a wire for a 4 Vincentian 3DRC catheter. This was easily engaged into the right coronary artery. There was no dampening or ventricularization upon engagement. Right coronary artery: The right coronary artery is a moderate size dominant vesse (more content not included)... 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 Normal [facility] Progress Note-Physicianon Progress Note-Physician Assessment/Plan 73-year-old female with history of ureteral stricture with previous dilations, anxiety disorder presented with complaints of urinary hesitancy, constipation, cough and shortness of breath and was admitted to [facility] with acute paroxysmal atrial fibrillation with [...] 07/06/23 9:00:00 EST, 07/05/23 11:13:[address] [facility] Hospital Care/Day Moderate 35 Minutes 12155 2. Acute systolic congestive heart failure (I50.21: Acute systolic (congestive) heart failure) Acute systolic congestive heart failure?present on admission. Seen by manager enrollment. She is status post cardiac catheterization that showed mild coronary artery disease. Also showed severe mitral regurgitation and tricuspid regurgitation.. Ejection fraction of 30 to 35%. Continue on aspirin, Coreg, losartan, Lasix. Ordered: [facility] Hospital Care/Day Moderate 35 Minutes 01270 3. Severe mitral regurgitation (I34.0: Nonrheumatic mitral (valve) insufficiency) Severe mitral regurgitation?seen on cardiac catheterization. Follow-up with manager enrollment as outpatient for HAROON and then valvular repair. Ordered: [facility] Hospital Care/Day Moderate 35 Minutes 60613 4. Elevated troponin (R79.89: Other specified abnormal findings of blood chemistry) Secondary to type II non-ST segment elevation myocardial infarction from above and mild coronary artery disease.. Seen by manager enrollment and underwent cardiac catheterization that showed mild coronary artery disease. Continue on aspirin, Lipitor, and Coreg. Ordered: furosemide, 40 mg = 1 tab(s), Tab, Oral, Daily, Routine, Start date 07/06/23 9:00:00 EST, 07/05/23 11:13:[address] [facility] Hospital Care/Day Moderate 35 Minutes 40961 5. Mild coronary artery disease (I25.10: Atherosclerotic heart disease of [place] coronary artery without angina pectoris) As seen on cardiac catheterization on 07/06/2023. Continue on Lipitor and aspirin. Ordered: [facility] Hospital Care/Day Moderate 35 Minutes 41900 6. Pleural effusion (J90: Pleural effusion, not [...] deep vein thrombosis (DVT) prophylaxis (Z79.899: Other snf (current) drug therapy) Lovenox. Disposition: Home in a.m. to follow-up with manager enrollment and urologist. I discussed the diagnosis and plan of care with the patient at the bedside. Moderate level of MDM based on addressing above issues. This documentation was transcribed using voice recognition software. Several attempts were made to ensure accuracy. However inadvertent computerized music pastor errors may be present. Nahid Serrato. Hospitalist. [...] Output This (more content not included)... Normal [facility] Comment on above: Result Comment: Elec tronically Signed By: JAZMÍN MCMAHON, Nahid\.br\Date and Time Signed: 07/05/23 11:19 EST eGFRon 07-05-2023 GFR/1.73 sq M.predicted among non-blacks MDRD (S/P/Bld) [Vol rate/Area] 90 mL/min/1.73 m2 Normal >=59 [facility] Comment on above: Order Comment: Order added by Discern Expert. Result Comment: Biosolids Management Technician luis kidney disease could be indicated at eGFR's of less than 60 mL/min/1.73m2. Kidney failure is indicated at less than 15 mL/min/1.73m2. Performed By: #### 1 [id number], [id number] ####[facility] [address] [place] [address] Monitor Recordon 07-04-2023 Monitor Record [id number]# 1.00TIFF Normal [facility] Monitor Record [id number]# 1.00TIFF Normal [facility] Monitor Record [id number]# 1.00TIFF Normal [facility] Monitor Record [id number]# 1.00TIFF Normal [facility] Patient Education - Texton 1 09-03-2022 Patient Education - Text Normal [facility] Progress Note-Physicianon Progress Note-Physician Assessment/Plan 73-year-old female with history of ureteral stricture with previous dilations, anxiety disorder presented with complaints of urinary hesitancy, constipation, cough and shortness of breath and was admitted to [facility] with acute paroxysmal atrial fibrillation with [...] BID, # 60 tab(s), Refills(s) 0, Pharmacy: [facility] #[id number], 165, cm, 07/02/23 21:30:00 EST, Height/Length Dosing, 55.7, kg, 07/02/23 21:30:00 EST, Weight Dosing Echo Transthoracic Complete Sbsq Hospital Care/Day Moderate 35 Minutes 04742 2. Acute systolic congestive heart failure (I50.21: Acute systolic (congestive) heart failure) Acute systolic congestive heart failure?present on admission. Cardiology is following. Ejection fraction of 30 to 35%. Cardiology is planning on cardiac catheterization for ischemic work-up in AM. Meanwhile continue on aspirin, Coreg, losartan. We will verify with manager enrollment about Lasix. Ordered: Sbsq Hospital Care/Day Moderate 35 Minutes 07686 3. Elevated troponin (R79.89: Other specified abnormal findings of blood chemistry) Secondary to type II non-ST segment elevation myocardial infarction from above. Echocardiogram shows ejection fraction of 30 to 35%. Command Center Officer following with plans for cardiac catheterization in AM. Meanwhile continue on aspirin and Coreg. Ordered: Echo Transthoracic Complete Sbsq Hospital Care/Day Moderate 35 Minutes 80900 4. Pleural effusion (J90: Pleural effusion, not elsewhere classified) Small pleural effusion?secondary to acute systolic congestive heart failure. Supportive care. Lasix as needed. Ordered: [facility] Hospital Care/Day Moderate 35 Minutes 85119 5. Urinary hesitancy (R39.11: Hesitancy of micturition) Secondary to urethral stricture and urinary retention. She is status post Robles catheter placement. Urology consult reviewed by me. I appreciate and agreed recommendations. Patient will discharge with Robles catheter and leg bag to follow-up with urologist as outpatient. Ordered: [facility] Hospital Care/Day Moderate 35 Minutes 50189 6. Other urethral stricture, female (N35.82: Other [...] NOW, Start date 07/03/23 11:16:[address] [facility] Hospital Care/Day Moderate 35 Minutes 67888 9. On deep vein thrombosis (DVT) prophylaxis (Z79.899: Other snf (current) drug therapy) Lovenox. Disposition: Pending cardiac catheterization in AM. I discussed the diagnosis and plan of care with the patient at the bedside. I also spoke with the patient's daughter Mandeep over the phone. Moderate level of MDM based on addressing above issues. This documentation was transcribed using voice recognition software. Several attempts were made to ensure accuracy. However inadvertent computerized music pastor errors may be present. Nahid Serrato. Hospitalist. [...] -- 176.8 (more content not included)... Normal [facility] Comment on above: Result Comment: Elec [...] deep vein thrombosis (DVT) prophylaxis (Z79.899: Other emt intermediate (current) drug therapy) Urinary retention (R33.9: Retention [...] PRN f (more content not included)... Normal [facility] Comment on above: Result Comment: Elec tronically Signed By: MARTINEZ MCMAHON, Johan Patino\.br\Date and Time Signed: 07/04/23 08:04 EST CHEMISTRYOrdered By: SYSTEM SYSTEM on 07-03-2023 Cholesterol [Mass/Vol] 145 mg/dL Normal 120 - 200 mg/dL [facility] Remisol Cholesterol in HDL [Mass/Vol] 43 mg/dL [...] 3.83 m[IU]/L Normal 0.34 - 5.60 mcIU/mL [facility] Remisol CHEMISTRYOrdered By: Dulce Maria Correa on 07-03-2023 HbA1c (Bld) [Mass fraction] 5.5 % Normal <=5.9% [facility] ChemAutoSS Consultation Noteon 07-03-20 Consultation Note Patient: HARJIT ASENCIO I Age: 73 years Sex: Female : 1950 Associated Diagnoses: None Author: DYLAN MCAMHON, Cody Dumont Chief Complaint For consultation on [...] day(s), # 14 cap(s), Refills(s) 0, Pharmacy: [facility] #[id number], 165, cm, 06/30/23 19:37:00 EST, Height/Length Dosing, 55.7, kg, 06/30/23 19:37:00 EST, Weight Dosing Cipro 500 mg Tab: 500 mg = 1 tab(s), Oral, As Directed, Patient to take 1 tab the day before procedure and the 2nd tab the day of procedure once completed, # 2 tab(s), Refills(s) 0, Pharmacy: [facility] #[id number], 165, cm, 04/26/23 15:23:00 EDT, Height/Length Do... Estrace 0.1 mg/g Cream: 0.5 gm, Vaginal, MonFri, 42.5 gm, Refill(s) 6 Zofran ODT 4 mg Tab-Dis: 4 mg = 1 tab(s), Oral, q8hr, # 12 tab(s), Refills(s) 0, Pharmacy: [facility] #[id number], 165, cm, 06/30/23 19:37:00 EST, Height/Length Dosing, 55.7, kg, 06/30/23 19:37:00 EST, Weight Dosing Documented Medications Documented Ativan 0.5 mg Tab: 0.5 mg = 1 tab(s), Oral, TID, PRN as needed for anxiety, Refills(s) 0 Problem list: All Problems acid reflux / SNOMED CT 817257767 / Confirmed anxiety / SNOMED CT 92830615 / Confirmed Injury of nose / SNOMED CT 39807233 / Confirmed Superficial laceration of face / SNOMED CT 216892021 / Confirmed Acute gastroenteritis / SNOMED CT 131462757 / Confirmed Other urethral stricture, female / SNOMED CT 917023306 / Confirmed Nocturia / SNOMED CT 068261289 / Confirmed Urinary hesitancy / SNOMED CT 140744293 / Confirmed Former smoker / SNOMED CT 77049016 / Confirmed Urinary frequency / SNOMED CT 040740843 / Confirmed Feeling of incomplete bladder emptying / SNOMED CT 230258339 / Confirmed Urinary urgency / SNOMED CT 171691928 / Confirmed Dysuria / SNOMED CT 98140487 / Confirmed Suprapubic pain / SNOMED CT 005539309 / Confirmed Poor urinary stream / SNOMED CT 606262440 / Confirmed Cystocele with prolapse / SNOMED CT 288279740 / Confirmed Stranguria / SNOMED CT 404679855 / Confirmed History of urethral stricture / SNOMED CT 296683496 / Confirmed Weak urine stream / SNOMED CT 054821764 / Confirmed Atrophic vaginitis / SNOMED CT 82005862 / Confirmed Renal lesion / SNOMED CT 5141436524 / Confirmed Histories Past Medical History: Active acid reflux (574686222) anxiety (10031819) Acute gastroenteritis (833586399) Family History: Heart disease Father Diabetes mellitus type 2 Mother Procedure history: Cystourethroscopy with dilation of urethral stricture (450605666) on 10/25/2022 at 72 Years. Cystoscopy/UD (64942713) on 02/23/2021 at 70 Years. Dilation of urethra (97356045) on 02/01/2019 at 68 Years. Cysto/ UD (595420994) on 10/10/2017 at 67 Years. Hysterectomy. colon resection. Corneal implant (962728236). Tonsillectomy (588489069). Dilation of urethra (07704418). Comments: 08/09/2019 13:23 EST - Darshan ASLAS, Tim Velazco (more content not included)... Normal [facility] Comment on above: Result Comment: Elec tronically Signed By: DYLAN MCMAHON, Cody Maguire.br\Date and Time Signed: 07/03/23 19:12 EST ED Clinical Summaryon 2022 ED Clinical Summary [place] [address] ED Clinical Summary Person Information Name: HARJIT ASENCIO I Patricia/[facility] Age: 73 Years : 1950 Sex: Female Language: Trinidadian PCP: Aravind MCMAHON, Peggy Mcmillan Marital Status: Visit Id: Visit Reason: Genitourinary problem; 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 Speciality: Acuity: 3 Enc Type: Observation Med Service: Emergency Arrival: 07/02/2023 21:17:31 Discharge: LOS: 000 05:33 Checkin: 07/02/2023 21:17:31 Checkout: 07/03/2023 02:50:11 Dispo Type: Admitted as IP to this [facility] EVENTS: Event Name Event Status Request Date/Time [...] 07/03/2023 02:36:18 07/03/2023 02:36:18 07/03/2023 02:36:19 ADDRESS: [address] [place] [phone] PHYS DOC NOTES: MEDICAL INFORMATION: Prescriptions Given: [...] RVR; 3:New onset a-fib; 4:Elevated troponin Normal [facility] ED Note-Physicianon 07-03-20 ED Note-Physician Basic [...] and Complexity of Problems Differential Diagnosis: [] [facility] Data External documents reviewed: [] My [...] 0.9% intrave (more content not included)... Normal [facility] Comment on above: Result Comment: Elec tronically Signed By: Layton Crawford M.D.\.br\Date and Time Signed: 07/03/23 08:17 EST ED Patient Education Noteon 07-03-2023 ED Patient Education Note Normal [facility] ED Patient Summaryon 023 ED Patient Summary [place] [id number] Patient Discharge Instructions Person Information Name: HARJIT ASENCIO I Age: 73 Years Arrival Date: 07/02/2023 21:17:31 Discharge Diagnosis: 1:Urinary hesitancy; 2:Atrial fibrillation with RVR; 3:New onset a-fib; 4:Elevated troponin Primary Care Physician: Peggy Nazario MD Provider Information Primary Provider: Layton Crawford M.D. [employer] Security Administrator:None The exam and treatment you received in the Emergency Department were for an urgent problem and are not intended as complete care. It is important that you follow up with a doctor, nurse practitioner, or physician?s research study assistant for ongoing care. If your symptoms [...] opioids can be used to help relieve oaoaygxe-vs-wotixt pain and are often prescribed following a [...] struggling with addiction, tell your health care transitions nurse and ask for guidance or call [employer]?S National Helpline at 4-552-840-VFTU. v Source: [place] Department of Health and Human Services/Center for Disease Control & Prevention [facility] (more content not included)... Normal [facility] Hep Func Panelon 07-03-2023 Albumin [Mass/Vol] 3.8 g/dL Normal 3.3-5.0 [facility] Comment on above: Performed By: #### 1 [id number], [id number], 2761238, 0283608, 8307303, [id number], 8633021 ####[facility] [address] [place] [address] Albumin/Globulin (S) [Mass conc ratio] 1.3 Normal 1.1-2.2 [facility] Comment on above: Performed By: #### 1 [id number], 7567240, 1790249, 4770972, 1117955, 74593265, 8189961 ####[place] [address] [place] [address] ALP [Catalytic activity/Vol] 58 Int._Unit/L Normal 21-98 [facility] Comment on above: Performed By: #### 1 [id number], 5673073, 6355218, 3068980, 3434827, 16410154, 2516835 ####[place] [id number] [place] [address] ALT No additional P-5'-P [Catalytic activity/Vol] 66 Int._Unit/L High 6-46 [facility] Comment on above: Performed By: #### 1 6978182, 2789275, 8511775, 4055921, 1567189, 07876554, 2319093 ####[address] [place] [address] AST [Catalytic activity/Vol] 81 Int._Unit/L High 5-43 [facility] Comment on above: Performed By: #### 1 3422275, 3373936, 6979419, 1546439, 4296236, 84899468, 1469186 ####[address] [place] [address] Bilirubin [Mass/Vol] 0.5 mg/dL Normal 0.0-1.1 [facility] Comment on above: Performed By: #### 1 7041939, 2787209, 3334362, 5961430, 3971120, 08106116, 4187549 ####[facility] [address] [place] [address] Bilirubin.direct [Mass/Vol] 0.1 mg/dL Normal 0.1-0.4 [facility] Comment on above: Performed By: #### 1 1609048, 0332259, 8285741, 6977692, 9464128, 15550477, 4233803 ####[facility] [address] [place] [address] Bilirubin.indirect [Mass or moles/Vol] 0.4 mg/dL Normal 0.1-0.9 [facility] Comment on above: Performed By: #### 1 2962793, 8973876, 6266627, 1473182, 5138421, 83677442, 2821314 ####[facility] [address] [place] [address] Globulin (S) [Mass/Vol] 2.9 g/dL Normal 1.4-4.0 [facility] Comment on above: Performed By: #### 1 1664299, 4007852, 9065391, 8727681, 5703341, 79885361, 0336718 ####[facility] [address] [place] [address] Protein [Mass/Vol] 6.7 g/dL Normal 6.0-7.8 [facility] Comment on above: Performed By: #### 1 4307862, 1215545, 8444170, 2690884, 7811994, 85597993, 0438510 ####[facility] [address] [place] [address] XzlQ5crf 07-03-2023 HbA1c (Bld) [Mass fraction] 5.5 % Normal <=5.9 [facility] Comment on above: Performed By: #### 2 322311, 94723433, 9327565, 6527889, 7319848, 6318859 #### [facility] [address] [place] [address] Interdisciplinary Note - Tico e Manageron 07-03-2023 Interdisciplinary Note - [employer] Worker CRM to room to discuss DC planning. [...] needs for HH, PM or DME at [place]. Patient was provided CRM contact, cortez board updated. Anticipated DC TBD. CRM following Normal [facility] Comment on above: Result Comment: Elec tronically Signed By: Brigitte Nazario\.br\Date and Time Signed: 07/03/23 13:05 EST Lipid Panelon 07-03-2023 Cholesterol [Mass/Vol] 145 mg/dL Normal 120-200 [facility] Comment on above: Performed By: #### 2 136092, 73165625, 0020605, 3224810, 3933391, 8086942 #### [facility] [address] [place] [address] Cholesterol in HDL [Mass/Vol] 43 mg/dL Invalid Interpretation Code [facility] Comment on above: Result Comment: HDL > or equal to 60 mg/dL: Low cardiovascular risk HDL < 40 mg/dL : High cardiovascular risk Performed By: #### 2 336795, 56397508, 7104920, 6292356, 5186339, 9302085 #### [facility] [address] [place] [address] Cholesterol in LDL [Mass/Vol] 99 mg/dL Normal <=129 [facility] Comment on above: Performed By: #### 2 355222, 39788270, 2863746, 3614970, 1118924, 2117303 #### [facility] [address] [place] [address] Cholesterol in VLDL [Mass/Vol] 17 mg/dL Normal 7-40 [facility] Comment on above: Performed By: #### 2 283099, 15323183, 6791752, 6001653, 4198701, 1705262 #### [facility] [address] [place] [address] Triglyceride [Mass/Vol] 85 mg/dL Normal <=149 [facility] Comment on above: Performed By: #### 2 630128, 28108418, 3525153, 1288246, 6828658, 6745317 #### [facility] [address] [place] [address] Magnesiumon 07-03-2023 Magnesium [Mass/Vol] 2.0 mg/dL Normal 1.3-2.4 [facility] Comment on above: Performed By: #### 1 5938712, 3493402, 4560814, 8843925, 6190275, 14560166, 6888193 ####[facility] [address] [place] [address] Message from Medicareon - Message from Medicare [id number]# 1.00TIFF Normal [facility] Monitor Recordon 07-03-2023 Monitor Record [id number]# 1.00TIFF Normal [facility] Monitor Record [id number]# 1.00TIFF Normal [facility] Monitor Record [id number]# 1.00TIFF Normal [facility] Progress Note-Physicianon Progress Note-Physician Assessment/Plan 73-year-old [...] Complete Sbsq Hospital Care/Day Moderate 35 Minutes 62428 2. Elevated troponin (R79.89: Other specified abnormal findings of blood chemistry) Secondary to type II non-ST segment elevation myocardial infarction from above. Echocardiogram ordered. Cardiology consult pending. Continue on aspirin. Ordered: Echo Transthoracic Complete Sbsq Hospital Care/Day Moderate 35 Minutes 78961 3. Urinary hesitancy (R39.11: Hesitancy of micturition) Secondary to urethral stricture. Patient is status post Robles catheter placement for urinary retention. She will follow-up with urologist as outpatient. Ordered: [facility] Hospital Care/Day Moderate 35 Minutes 16005 4. Constipation (K59.00: Constipation, unspecified) Started patient on MiraLAX and lactulose. Ordered: lactulose, 20 gram = 30 mL, Syrup, Oral, Once, Stop date 07/03/23 12:00:00 EST, Routine, Start date 07/03/23 12:00:00 EST, 07/03/23 12:00:00 EST polyethylene glycol 3350, 17 gram = 1 EA, Powder-Recon, Oral, Daily, Routine, Start date 07/03/23 12:00:00 EST, 07/03/23 12:00:[address] [facility] Hospital Care/Day Moderate 35 Minutes 57474 5. Other urethral stricture, female (N35.82: Other urethral stricture, female) Resulting in urinary retention. Patient is status post Robles catheter during this admission. Gets dilation of the ureter every 6 months. Urology consult pending. 6. On deep vein thrombosis (DVT) prophylaxis (Z79.899: Other emt intermediate (current) drug therapy) Lovenox. Disposition: Pending echocardiogram, cardiology and urology consult. I discussed the diagnosis and plan of care with the patient at the bedside. Moderate level of MDM based on addressing above issues. This documentation was transcribed using voice recognition software. Several attempts were made to ensure accuracy. However inadvertent computerized music pastor errors may be present. Nahid Serrato. Hospitalist. [...] 22:10:00) Lymph Auto: 15.3 % (07/02/23 22:10:00) [place] Auto: 7.7 % (07/02/23 22:10:00) Eos Auto: 0 % (07/02/23 22:10:00) Baso (more content not included)... Normal [facility] Comment on above: Result Comment: Elec tronically Signed By: JAZMÍN MCMAHON, Nahid\.br\Date and Time Signed: 07/03/23 10:57 EST TSH With T4fr Reflexon 07-03 TSH Qn 3.83 m[IU]/L Normal 0.34-5.60 [facility] Comment on above: Performed By: #### 2 565171, 25131819, 0599487, 2824287, 3373421, 4115642 #### [facility] [address] [place] [address] Troponinon 07-03-2023 Troponin I.cardiac [Mass/Vol] 27.10 pg/mL Normal 10.10-27.10 [facility] Comment on above: Result Comment: The 95% CI (Confidence Interval) PPV (Positive Predictive Value) for myocardial infarction in females is 38 pg/mL, in males 51 pg/mL. The results should be used in conjunction with clinical conditions of myocardial infarction. (Access High Sensitivity Troponin I Instructions For Use, [employer], March 2018) Performed By: #### 2 066148, 00578845, 2938229, 9539888, 7236826, 1701644 #### [facility] [address] [place] [address] Troponin 0 Hr.on 07-03-2023 Troponin I.cardiac [Mass/Vol] 27.30 pg/mL High 10.10-27.10 [facility] Comment on above: Result Comment: The 95% CI (Confidence Interval) PPV (Positive Predictive Value) for myocardial infarction in females is 38 pg/mL, in males 51 pg/mL. The results should be used in conjunction with clinical conditions of myocardial infarction. (Access High Sensitivity Troponin I Instructions For Use, [employer], March 2018) Performed By: #### 1 5286591, 9578179, 8629851, 5146416, 7940373, 64498901, 8832874 ####[facility] [address] [place] [address] Troponin 3 Hr.Ordered By: elmenus SYSTEM on 07-03-2023 Troponin I.cardiac [Mass/Vol] 27.70 pg/mL High 10.10-27.10 [facility] Comment on above: Interpretive Data: T he 95% CI (Confidence Interval) PPV (Positive Predictive Value) for myocardial infarction in females is 38 pg/mL, in males 51 pg/mL. The results should be used in conjunction with clinical conditions of myocardial infarction. (Access High Sensitivity Troponin I Instructions For Use, [employer], March 2018) Result Comment: The 95% CI (Confidence Interval) PPV (Positive Predictive Value) for myocardial infarction in females is 38 pg/mL, in males 51 pg/mL. The results should be used in conjunction with clinical conditions of myocardial infarction. (Aspida High Sensitivity Troponin I Instructions For Use, [employer], March 2018) Performed By: #### 2 642238, 84188428, 6445748, 9698199, 0073443, 4322925 #### [facility] [address] [place] [address] XR Chest Single Viewon 07-03 XR Chest Single View Exam Date/Time: 07/02/2023 23:18 EST Reason for Exam: Chest pain Report IMPRESSION: NO MEGALY WITH PULMONARY VENOUS CONGESTION. CLINICAL HISTORY: Chest pain COMPARISON: Chest radiograph, April 26, 2021 FINDINGS: Osseous structures intact. Cardiopericardial silhouette enlarged. Pulmonary vasculature indistinct. Lungs clear. Ordering Provider: Layton Crawford FINAL REPORT Dictated: 07/03/2023 9:53 am oMiz Carreno MD Signed (Electronic Signature): 07/03/2023 9:53 am Signed by: Moiz Carreno MD Transcribed by: ARAVIND Technologist: RADHA Technical Comments Radiation Dose: Ka,r in mGy = na DAP = na Normal [facility] Auto Diffon 07-02-2023 Basophils/100 WBC (Bld) 0.3 % Normal 0.0-2.0 [facility] Comment on above: Order Comment: Order Added by Discern Expert. Performed By: #### 1 8944689, 1672788, 7597993, 9928623, 4025032, 92790334, 4970191 ####[address] [place] [address] Basophils/Leukocytes Auto (Bld) [Pure # fraction] 0.0 E9/L Normal 0.0-0.2 [facility] Comment on above: Order Comment: Order Added by Discern Expert. Performed By: #### 1 6712363, 8183351, 0887894, 8213139, 8124970, 74675674, 1633035 ####[address] [address] Eosinophils/100 WBC (Bld) 0.0 % Normal 0.0-8.0 [facility] Comment on above: Order Comment: Order Added by Discern Expert. Performed By: #### 1 7423173, 4672254, 8605412, 5472671, 2788264, 56919617, 9623095 ####[address] [address] Eosinophils/Leukocyte s Auto (Bld) [Pure # fraction] 0.0 E9/L Normal 0.0-0.5 [facility] Comment on above: Order Comment: Order Added by Discern Expert. Performed By: #### 1 4819947, 9316521, 8658296, 7232542, 7022033, 51012466, 3345069 ####[address] [address] Lymphocytes/100 WBC (Bld) 15.3 % Normal 14.0-50.0 [facility] Comment on above: Order Comment: Order Added by Discern Expert. Performed By: #### 1 0627838, 2301411, 7762093, 3729638, 3659144, 56688430, 7169391 ####[address] [place] [address] Lymphocytes/Leukocyte s Auto (Bld) [Pure # fraction] 0.9 E9/L Low 1.0-4.0 [facility] Comment on above: Order Comment: Order Added by Valeria Expert. Performed By: #### 1 8489776, 1838259, 4520477, 6351516, 6370372, 59641005, 3421625 ####[facility] [address] [place] [address] Monocytes/100 WBC (Bld) 7.7 % Normal 4.0-14.0 [facility] Comment on above: Order Comment: Order Added by Discern Expert. Performed By: #### 1 3189251, 4156249, 4410858, 5762369, 4921989, 09834186, 2911192 ####[facility] [address] [place] [address] Monocytes/Leukocytes Auto (Bld) [Pure # fraction] 0.5 E9/L Normal 0.2-1.0 [facility] Comment on above: Order Comment: Order Added by Valeria Expert. Performed By: #### 1 2665349, 3674517, 6904538, 7810888, 0858565, 27487367, 9282442 ####[facility] [address] [place] [address] Neutrophils/100 WBC (Bld) 76.7 % High 36.0-75.0 [facility] Comment on above: Order Comment: Order Added by Valeria Expert. Performed By: #### 1 1670681, 0552616, 5145636, 0599629, 6900448, 31596580, 6507113 ####[facility] [address] [place] [address] Neutrophils/Leukocyte s Auto (Bld) [Pure # fraction] 4.7 E9/L Normal 2.0-7.5 [facility] Comment on above: Order Comment: Order Added by Valeria Expert. Performed By: #### 1 4673446, 0583605, 7818792, 0773165, 2054582, 24764976, 4440881 ####[facility] [address] [place] [address] BMPon 07-02-2023 Creatinine [Mass/Vol] 1.0 mg/dL Normal 0.5-1.3 [facility] Comment on above: Performed By: #### 1 6807878, 9233228, 5210891, 2924563, 9372183, 25887337, 4015401 ####[facility] [address] [place] [address] Urea nitrogen [Mass/Vol] 13 mg/dL Normal 5-21 [facility] Comment on above: Performed By: #### 1 5773644, 2878009, 2722304, 4836548, 4274478, 89741818, 8595963 ####[facility] [address] [place] [address] Urea nitrogen/Creatinine [Mass ratio] 13 No Units Normal 10-20 [facility] Comment on above: Performed By: #### 1 5505036, 5889799, 5998789, 6814794, 4341350, 34082940, 0650639 ####[facility] [address] [place] [address] Anion gap [Moles/Vol] 13 mmol/L Normal 6-16 [facility] Comment on above: Performed By: #### 1 1969757, 2389788, 8488150, 9032175, 8736289, 44789159, 4768664 ####[facility] [address] [place] [address] Calcium [Mass/Vol] 9.1 mg/dL Normal 8.9-11.1 [facility] Comment on above: Performed By: #### 1 7499479, 7908334, 5557065, 4981211, 7480552, 38718035, 5338101 ####[facility] [address] [place] [address] Chloride [Moles/Vol] 100 mmol/L Low 101-[address] [facility] Comment on above: Performed By: #### 1 3646929, 6225070, 5976111, 2241171, 5588476, 36395687, 6472946 ####[facility] [address] [place] [address] CO2 [Moles/Vol] 24 mmol/L Normal 21-31 [facility] Comment on above: Performed By: #### 1 7572973, 9045972, 4676882, 1005176, 8027455, 50590112, 6659302 ####[facility] [address] [place] [address] Glucose [Mass/Vol] 129 mg/dL Normal 55-199 [facility] Comment on above: Result Comment: If t his glucose result represents a fasting glucose, interpretation should refer to the following reference range: 55-99 mg/dL Performed By: #### 1 2220828, 7196498, 1268268, 4481755, 4320763, 06926815, 5172716 ####[facility] [address] [place] [address] Potassium [Moles/Vol] 3.8 mmol/L Normal 3.5-5.3 [facility] Comment on above: Performed By: #### 1 6564510, 2809256, 8761200, 3728377, 2266374, 01910915, 0027490 ####[facility] [address] [place] [address] Sodium [Moles/Vol] 133 mmol/L Low 135-145 [facility] Comment on above: Performed By: #### 1 5156830, 2858048, 5268121, 6413291, 3897596, 20606573, 7340424 ####[facility] [address] [place] [address] CBC w/ Auto Diffon 3 Erythrocyte distribution width (RBC) [Ratio] 13.5 % Normal 10.9-14.2 [facility] Comment on above: Performed By: #### 1 4636163, 8645451, 6464646, 2195174, 3118544, 81376717, 9515274 #### [facility] [address] [place] [address] Hematocrit (Bld) [Volume fraction] 38.5 % Normal 34.0-46.0 [facility] Comment on above: Performed By: #### 1 6977671, 2881732, 7343572, 2393464, 1079534, 02871405, 6083486 #### [facility] [address] [place] [address] Hemoglobin (Bld) [Mass/Vol] 12.7 g/dL Normal 12.0-16.0 [facility] Comment on above: Performed By: #### 1 9125473, 8974013, 0933222, 1075889, 3707562, 99580521, 8969129 #### [facility] [address] [place] [address] MCH (RBC) [Entitic mass] 29.7 pg Normal 27.0-34.0 [facility] Comment on above: Performed By: #### 1 5285501, 8100388, 6935219, 8138863, 5614443, 22826902, 3788787 #### [facility] [address] [place], [place] [address] MCHC (RBC) [Mass/Vol] 32.9 g/dL Normal 31.4-36.0 [facility] Comment on above: Performed By: #### 1 7924136, 9519623, 2972114, 4190109, 8120221, 91779288, 3594573 #### [facility] [address] [place] [address] MCV (RBC) [Entitic vol] 90.3 fL Normal 80.0-100.0 [facility] Comment on above: Performed By: #### 1 5761394, 7723007, 5915354, 8748280, 6348534, 41689046, 4599225 #### [facility] [address] [place] [address] Platelet mean volume (Bld) [Entitic vol] 9.1 fL Normal 6.4-10.8 [facility] Comment on above: Performed By: #### 1 2696749, 9496783, 3645409, 6506729, 9101267, 03625046, 5012774 #### [facility] [address] [place] [address] [place] [address] Platelets (Bld) [#/Vol] 183.0 E9/L Normal 150.0-500.0 [facility] Comment on above: Performed By: #### 1 4973216, 0287491, 6919518, 8937996, 0943061, 93409093, 3432143 #### [facility] [address] [place] [address] RBC (Bld) [#/Vol] 4.3 E12/L Normal 4.3-5.9 [facility] Comment on above: Performed By: #### 1 2583769, 8751776, 6739047, 5618337, 5679612, 39830310, 4727794 #### [facility] [address] [place] [address] WBC corrected for nucl RBC Auto (Bld) [#/Vol] 6.2 E9/L Normal 4.0-11.0 [facility] Comment on above: Performed By: #### 1 8188181, 5149724, 4079930, 5664908, 0044336, 30776915, 4553991 #### [facility] [address] [place] [address] CHEMISTRYOrdered By: SYSTEM SYSTEM on 07-02-2023 Albumin [...] mL/min/1.73 m2 Normal >=59mL/min/1 .73 m2 [facility] Chem S Comment on above: Interpretive Data: [...] mg/dL Normal 5 - 21 mg/dL [facility] Remisol Urea nitrogen/Creatinine [Mass ratio] 13 mg/mg Normal 10 - 20 [facility] COAGULATIONOrdered By: Lan Eastman on 07-02-2023 aPTT Coag (PPP) [Time] 30.2 s Normal 25.1 - 36.5 second(s) [facility] Auto Coag Comment on above: Interpretive Data: [...] same coagulation reagent and instrumentation as [facility]. Currently there are no coagulation studies available worldwide for children to 14 days, and no normal ranges. Heparin therapeutic range (represented by Anti-Factor Xa activity of 0.2 - 0.4 U/mL) corresponds to PTT of 56.6 - 109.0 sec. INR Coag (PPP) [Relative time] 1.2 {INR} Invalid Interpretation Code [facility] Auto Coag Comment on above: Interpretive Data: I NR results are specifically intended to assess patients stabilized on long-term Anticoagulation therapy suggested INR s Less Intensive Anticoagulation 2.0 3.0 Conventional Range 3.0 4.5 PT Coag (PPP) [Time] 13.2 s High 9.4 - 1 2.5 second(s) [facility] Auto Coag Comment on above: Interpretive Data: [...] same coagulation reagent and instrumentation as [facility]. Currently there are no coagulation studies available worldwide for children to 14 days, and no normal ranges. Consent for Treatmenton 06-14 Consent for Treatment [id number]#1 .00TIFF Normal [facility] HEMATOLOGYOrdered By: SYSTEM SYSTEM on 07-02-2023 [...] Coag (PPP) [Time] 30.2 second(s) Normal 25.1-36.5 [facility] Comment on above: Result Comment: Para [...] same coagulation reagent and instrumentation as [facility]. Currently there are no coagulation studies available worldwide for children to 14 days, and no normal ranges. Heparin therapeutic range (represented by Anti-Factor Xa activity of 0.2 - 0.4 U/mL) corresponds to PTT of 56.6 - 109.0 sec. Performed By: #### 2 358181, 89561919, 9814720, 8030148, 4920275, 1147863 #### [facility] [address] [place] [address] INR Coag (PPP) [Relative time] 1.2 {INR} Invalid Interpretation Code [facility] Comment on above: Result Comment: INR results are specifically intended to assess patients stabilized on long-term Anticoagulation therapy suggested INR?s ?Less Intensive Anticoagulation? 2.0 ? 3.0 Conventional Range 3.0 ? 4.5 Performed By: #### 2 190567, 09052241, 8800214, 3724573, 1252554, 6854062 #### [facility] [address] [place] [address] PT Coag (PPP) [Time] 13.2 second(s) High 9.4-12.5 [facility] Comment on above: Result Comment: 15 [...] same coagulation reagent and instrumentation as [facility]. Currently there are no coagulation studies available worldwide for children to 14 days, and no normal ranges. Performed By: #### 2 995460, 23505570, 8677813, 2964370, 8205727, 7137376 #### [facility] [address] [place] [address] UA With Cult Reflexon 2022 Bacteria LM Ql (Urine sed) TRACE Normal Trace [facility] Comment on above: Order Comment: Urina ry Catheter Insertion triggered Urinalysis With Culture Reflex order by discern. Performed By: #### 2 997990, 07799160, 7637663, 7130989, 5503100, 6616750 #### [facility] [address] [place] [address] Bilirubin Ql (U) Negative Normal Negative [facility] Comment on above: Order Comment: Urina ry Catheter Insertion triggered Urinalysis With Culture Reflex order by discern. Performed By: #### 2 792868, 37741351, 5378993, 3367415, 1347957, 2409524 #### [facility] [address] [place] [address] Clarity (U) CLEAR Normal Clear [facility] Comment on above: Order Comment: Urina ry Catheter Insertion triggered Urinalysis With Culture Reflex order by discern. Performed By: #### 2 297708, 29536756, 3145337, 4552190, 4593946, 8095765 #### [facility] [address] [place] [address] Color (U) YELLOW Normal Yellow [facility] Comment on above: Order Comment: Urina ry Catheter Insertion triggered Urinalysis With Culture Reflex order by discern. Performed By: #### 2 155152, 03165365, 4022513, 1812965, 5774707, 2108434 #### [facility] [address] [place] [address] Epithelial cells.squamous LM.HPF (Urine sed) [#/Area] 9-10 Normal 0-2 [facility] Comment on above: Order Comment: Urina ry Catheter Insertion triggered Urinalysis With Culture Reflex order by discern. Performed By: #### 2 179306, 26366864, 5213630, 5150725, 2106500, 4189540 #### [facility] [address] [place] [address] Glucose Test strip (U) [Mass/Vol] Negative Normal Negative [facility] Comment on above: Order Comment: Urina ry Catheter Insertion triggered Urinalysis With Culture Reflex order by discern. Performed By: #### 2 486663, 90436096, 4579516, 5307796, 9805414, 6986224 #### [facility] [address] [place] [address] Hemoglobin Ql (U) TRACE Abnormal Negative [facility] Comment on above: Order Comment: Urina ry Catheter Insertion triggered Urinalysis With Culture Reflex order by discern. Performed By: #### 2 275044, 92346119, 4187565, 4923138, 1358237, 1864323 #### [facility] [address] [place] [address] Ketones (U) [Mass/Vol] TRACE Invalid Interpretation Code Negative [facility] Comment on above: Order Comment: Urina ry Catheter Insertion triggered Urinalysis With Culture Reflex order by discern. Performed By: #### 2 477404, 40946089, 9822813, 4212087, 5960794, 6373663 #### [facility] [address] [place] [address] [place].plasma/Lithiu m.RBC (Bld) [Mass ratio] 0-3 Normal 0-3 [facility] Comment on above: Order Comment: Urina ry Catheter Insertion triggered Urinalysis With Culture Reflex order by discern. Performed By: #### 2 256250, 12620023, 8599001, 4620791, 8168866, 1112936 #### [facility] [address] [place] [address] Mucus Ql (Urine sed) TRACE Normal [facility] Comment on above: Order Comment: Urina ry Catheter Insertion triggered Urinalysis With Culture Reflex order by discern. Performed By: #### 2 448047, 70103003, 1742049, 1677124, 0369585, 5159497 #### [facility] [address] [place] [address] Nitrite Ql (U) Negative Normal Negative [facility] Comment on above: Order Comment: Urina ry Catheter Insertion triggered Urinalysis With Culture Reflex order by discern. Performed By: #### 2 408744, 18484803, 2204038, 7308818, 5988494, 1029609 #### [facility] [address] [place] [address] pH (U) 5.5 [pH] Invalid Interpretation Code 5.0-9.0 [facility] Comment on above: Order Comment: Urina ry Catheter Insertion triggered Urinalysis With Culture Reflex order by discern. Performed By: #### 2 637686, 04291512, 9937203, 4892255, 0760652, 2758102 #### [facility] [address] [place] [address] Protein (U) [Mass/Vol] Negative Normal Negative [facility] Comment on above: Order Comment: Urina ry Catheter Insertion triggered Urinalysis With Culture Reflex order by discern. Performed By: #### 2 842392, 27041553, 2617936, 5907010, 9858435, 0848163 #### [facility] [address] [place] [address] Specific gravity (U) [Rel density] 1.025 Invalid Interpretation Code 1.005-1.030 [facility] Comment on above: Order Comment: Urina ry Catheter Insertion triggered Urinalysis With Culture Reflex order by discern. Performed By: #### 2 837905, 70194658, 6005048, 7580334, 4847816, 0694570 #### [facility] [address] [place] [address] Type of Urine collection method Robles Normal [facility] Comment on above: Order Comment: Urina ry Catheter Insertion triggered Urinalysis With Culture Reflex order by discern. Performed By: #### 2 870881, 18929799, 5005996, 7003622, 0688298, 2856603 #### [facility] [address] [place] [address] Urobilinogen Qn (U) 0.2 {Judith'U}/dL Normal 0.0-1.0 [facility] Comment on above: Order Comment: Urina ry Catheter Insertion triggered Urinalysis With Culture Reflex order by discern. Performed By: #### 2 535644, 21198394, 8283321, 2917607, 1523792, 8597723 #### [facility] [address] [place] [address] WBC Auto Ql (U) Negative Normal Negative [facility] Comment on above: Order Comment: Urina ry Catheter Insertion triggered Urinalysis With Culture Reflex order by discern. Performed By: #### 2 024195, 82379902, 0437019, 7526809, 2955337, 3486877 #### [facility] [address] [place] [address] WBC LM.HPF (Urine sed) [#/Area] 0-5 Normal 0-5 [facility] Comment on above: Order Comment: Urina ry Catheter Insertion triggered Urinalysis With Culture Reflex order by discern. Performed By: #### 2 975259, 51493054, 4297120, 0111183, 6200745, 0677216 #### [facility] [address] [place] [address] URINALYSISOrdered By: Lan Eastman on 07-02-2023 Bacteria [...] Interpretation Code Negative [facility] UA Auto SS [place].plasma/Lithiu m.RBC (Bld) [Mass ratio] 0-3 /HPF Normal [...] [facility] UA Auto SS Urobilinogen Qn (U) 0.8267999 {Judith'U}/dL Normal 0.0 - 1.0 EU/dL [facility] UA Auto SS WBC Auto Ql (U) Negative (07/02/23 10:18 PM) Normal Negative [facility] UA Auto SS WBC LM.HPF (Urine sed) [#/Area] 0-5 /HPF Normal 0-5/HPF [facility] UA Auto SS eGFRon 07-02-2023 GFR/1.73 sq M.predicted among non-blacks MDRD (S/P/Bld) [Vol rate/Area] 59 mL/min/1.73 m2 Normal >=59 [facility] Comment on above: Order Comment: Order added by Discern Expert. Result Comment: [employer] Management Technician luis kidney disease could be indicated at eGFR's of less than 60 mL/min/1.73m2. Kidney failure is indicated at less than 15 mL/min/1.73m2. Performed By: #### 1 7138353, 3397077, 9501282, 3542038, 0176401, 03255003, 1900366 ####[facility] [address] [place] [address] CT Abdomen/Pelvis w/o Marylu benz 07-01-2023 CT [...] Oral contrast amount in ml's: 0 Normal [facility] Discharge Instructionson Discharge Instructions [id number] .[id number] Normal [facility] ED Clinical Summaryon 2022 ED Clinical Summary [address] [address] ED Clinical Summary Person Information Name: HARJIT ASNECIO I [place] Age: 73 Years : 1950 Sex: Female Language: Trinidadian PCP: Peggy Nazario MD Marital Status: Visit [...] 00:37:46 07/01/2023 00:37:46 07/01/2023 00:37:46 ADDRESS: [address] [facility] [id number] PHYS DOC NOTES: MEDICAL INFORMATION: Prescriptions Given: New Medications [id number], [address] [place], [place] [id number], [phone] dicyclomine (Bentyl 10 mg Cap) 1 Capsules [...] PATIENT EDUCATION INFORMATION: Instructions: Abdominal Pain, Adult, Gsss-jp-Pjid Follow up: With: Address: When: Peggy Nazario [address] [place] [address] Business (1) In 3 days 07/04/2023 Comments: You can use the Bentyl, Zofran every 6 hours as needed for pain and nausea. Please follow-up with your primary care doctor next 2 to 3 days for further evaluation management. Please return to the ED for any new or worsening symptoms. DIAGNOSIS: Abdominal pain, acute Normal [facility] ED Note-Physicianon 07-01-20 ED Note-Physician Basic [...] and Complexity of Problems Differential Diagnosis: [] [facility] Data External documents reviewed: [] My [...] day(s), # 14 cap(s), Refills(s) 0, Pharmacy: [id number], 165, cm, 06/30/23 19:37:00 EST, Height/Length Dosing, [...] q8hr, # 12 tab(s), Refills(s) 0, Pharmacy: [facility] #[id number], 165, cm, 06/30/23 19:37:00 EST, Height/Length Dosing, [...] Information Peggy Nazario In 3 days 07/04/2023 [facility] [employer] [facility] [address]- Business (1) Additional Instructions: You can use the Bentyl, Zofran every 6 hours as needed for pain and nausea. Please follow-up with your primary care doctor next 2 to 3 days for further evaluation management. Please return to the ED for any new or worsening symptoms. Patient Education Abdominal Pain, Adult, Fgok-nr-Kaom Problem List/Past Medical History Ongoing acid reflux Acute ga (more content not included)... Normal [facility] Comment on above: Result Comment: Elec tronically Signed By: Koby Masterson DO\.br\Date and Time Signed: 07/01/23 01:03 [facility] ED Patient Education Noteon 07-01-2023 ED Patient [...] these instructions at home: Medicines ? Take irmd-qbz-bojflgj and prescription medicines only as told by [...] belly pain for any changes. ? Take ykdv-iiv-clwdsht and prescription medicines only as told by [...] provider. Document Revised: 12/09/2019 Document Reviewed: 12/09/2019 [employer] Patient Education ? 2022 [employer] Normal [facility] ED Patient Summaryon 023 ED Patient Summary [address] [address] Patient Discharge Instructions Person Information Name: HARJIT ASENCIO I Age: 73 Years Arrival Date: 06/30/2023 18:48:02 Discharge Diagnosis: Abdominal pain, acute Primary Care Physician: Peggy Nazario MD Provider Information Primary Provider: Koby Masterson DO [employer] Security Administrator:None The exam and treatment you received in the Emergency Department were for an urgent problem and are not intended as complete care. It is important that you follow up with a doctor, nurse practitioner, or physician?s research study assistant for ongoing care. If your symptoms [...] Instructions: With: Address: When: Peggy Nazario [address] [place] [address] Business (1) In 3 days 07/04/2023 Comments: [...] provider. Patient Education Materials: Abdominal Pain, Adult, Nakm-tl-Zmkj A MESSAGE TO ALL PATIENTS REGARDING OPIOIDS PRESCRIPTION OPIOIDS: WHAT YOU NEED TO KNOW Prescription opioids can be used to help relieve hifcxeff-ob-uqkhvv pain and are often prescribed following a [...] to le (more content not included)... Normal [facility] RAD - Preliminary Cat Scan R eporton 07-01-2023 RAD - Preliminary Cat Scan Report [id number] .[id number] Normal [facility] Auto Diffon 06-30-2023 Basophils/100 WBC (Bld) 0.8 % Normal 0.0-2.0 [facility] Comment on above: Order Comment: Order Added by Discern Expert. Performed By: #### 2 708891, 79796489, 9317484, 6461776, 2105660, 4498952 #### [facility] [address] [place] [address] Basophils/Leukocytes Auto (Bld) [Pure # fraction] 0.0 E9/L Normal 0.0-0.2 [facility] Comment on above: Order Comment: Order Added by Discern Expert. Performed By: #### 2 134327, 39459766, 1483318, 0157550, 4816133, 8017175 #### [facility] [address] [place] [address] Eosinophils/100 WBC (Bld) 0.2 % Normal 0.0-8.0 [facility] Comment on above: Order Comment: Order Added by Discern Expert. Performed By: #### 2 451284, 28118261, 9693403, 9474458, 5520751, 0668486 #### [facility] [address] [place] [address] Eosinophils/Leukocyte s Auto (Bld) [Pure # fraction] 0.0 E9/L Normal 0.0-0.5 [facility] Comment on above: Order Comment: Order Added by Discern Expert. Performed By: #### 2 913014, 32751569, 5443964, 7416626, 3751792, 8381067 #### [facility] [address] [place] [address] Lymphocytes/100 WBC (Bld) 26.7 % Normal 14.0-50.0 [facility] Comment on above: Order Comment: Order Added by Discern Expert. Performed By: #### 2 369020, 35940095, 8762532, 7176741, 7120030, 9497336 #### [facility] [address] [place] [address] Lymphocytes/Leukocyte s Auto (Bld) [Pure # fraction] 1.2 E9/L Normal 1.0-4.0 [facility] Comment on above: Order Comment: Order Added by Discern Expert. Performed By: #### 2 251078, 12461806, 1329032, 9873622, 6527596, 7068735 #### [facility] [address] [place] [address] Monocytes/100 WBC (Bld) 9.8 % Normal 4.0-14.0 [facility] Comment on above: Order Comment: Order Added by Discern Expert. Performed By: #### 2 514753, 75856114, 8272720, 3781924, 6238477, 5211787 #### [facility] [address] [place] [address] Monocytes/Leukocytes Auto (Bld) [Pure # fraction] 0.4 E9/L Normal 0.2-1.0 [facility] Comment on above: Order Comment: Order Added by Discern Expert. Performed By: #### 2 804086, 93419104, 2253616, 0492110, 6442763, 7284795 #### [facility] [address] [place] [address] Neutrophils/100 WBC (Bld) 62.5 % Normal 36.0-75.0 [facility] Comment on above: Order Comment: Order Added by Discern Expert. Performed By: #### 2 730208, 79121125, 7290248, 7619667, 4434090, 8722007 #### [facility] [address] [place] [address] Neutrophils/Leukocyte s Auto (Bld) [Pure # fraction] 2.7 E9/L Normal 2.0-7.5 [facility] Comment on above: Order Comment: Order Added by Discern Expert. Performed By: #### 2 047241, 95847858, 5085018, 0623827, 3042943, 1859057 #### [facility] [address] [place] [address] BMPon 06-30-2023 Creatinine [Mass/Vol] 0.8 mg/dL Normal 0.5-1.3 [facility] Comment on above: Performed By: #### 2 220712, 20747237, 0527627, 7705648, 3765008, 2337761 #### [facility] [address] [place] [address] Urea nitrogen [Mass/Vol] 12 mg/dL Normal 5-21 [facility] Comment on above: Performed By: #### 2 191944, 79146323, 3306506, 3696633, 3935172, 2340505 #### [facility] [address] [place] [address] Urea nitrogen/Creatinine [Mass ratio] 15 No Units Normal 10-20 [facility] Comment on above: Performed By: #### 2 323313, 25690725, 4817572, 9127427, 2766673, 1982848 #### [facility] [address] [place] [address] Anion gap [Moles/Vol] 13 mmol/L Normal 6-16 [facility] Comment on above: Performed By: #### 2 989546, 60216624, 8785427, 0544021, 9750789, 3173660 #### [facility] [address] [place] [address] Calcium [Mass/Vol] 9.5 mg/dL Normal 8.9-11.1 [facility] Comment on above: Performed By: #### 2 610263, 09816405, 6210652, 6376458, 1419287, 9658763 #### [facility] [address] [place] [address] Chloride [Moles/Vol] 103 mmol/L Normal 101-111 [facility] Comment on above: Performed By: #### 2 326791, 52242555, 6354297, 1126004, 1621896, 3011361 #### [facility] [address] [place] [address] CO2 [Moles/Vol] 27 mmol/L Normal 21-31 [facility] Comment on above: Performed By: #### 2 164731, 80608376, 2962280, 8137756, 6711925, 8891037 #### [facility] [address] [place] [address] Glucose [Mass/Vol] 110 mg/dL Normal 55-199 [facility] Comment on above: Result Comment: If t his glucose result represents a fasting glucose, interpretation should refer to the following reference range: 55-99 mg/dL Performed By: #### 2 272196, 06611575, 1366671, 9569558, 7181033, 5202536 #### [facility] [address] [place] [address] Potassium [Moles/Vol] 4.1 mmol/L Normal 3.5-5.3 [facility] Comment on above: Performed By: #### 2 390304, 30060353, 9650882, 1339026, 9223643, 6566887 #### [facility] [address] [place] [address] Sodium [Moles/Vol] 139 mmol/L Normal 135-145 [facility] Comment on above: Performed By: #### 2 996084, 76882333, 4948041, 4146772, 8313744, 1040732 #### [facility] [address] [place] [address] CBC w/ Auto Diffon 3 Erythrocyte distribution width (RBC) [Ratio] 13.7 % Normal 10.9-14.2 [facility] Comment on above: Performed By: #### 2 513421, 07968401, 5061437, 6171601, 0192462, 3039068 #### [facility] [address] [place] [address] Hematocrit (Bld) [Volume fraction] 38.0 % Normal 34.0-46.0 [facility] Comment on above: Performed By: #### 2 237766, 31930656, 2278140, 4442061, 9030931, 1083518 #### [facility] [address] [place] [address] Hemoglobin (Bld) [Mass/Vol] 12.5 g/dL Normal 12.0-16.0 [facility] Comment on above: Performed By: #### 2 390538, 12734809, 9658888, 3653708, 6762415, 5413277 #### [facility] [address] [place] [address] MCH (RBC) [Entitic mass] 29.9 pg Normal 27.0-34.0 [facility] Comment on above: Performed By: #### 2 231624, 05997823, 4625405, 2671744, 8336581, 4340734 #### [facility] [address] [place] [address] MCHC (RBC) [Mass/Vol] 32.9 g/dL Normal 31.4-36.0 [facility] Comment on above: Performed By: #### 2 748420, 87965853, 4433241, 7468072, 2111762, 8724724 #### [facility] [address] [place] [address] MCV (RBC) [Entitic vol] 90.9 fL Normal 80.0-100.0 [facility] Comment on above: Performed By: #### 2 977905, 48391210, 0692519, 9825278, 1911250, 2884866 #### [facility] [address] [place] [address] Platelet mean volume (Bld) [Entitic vol] 8.7 fL Normal 6.4-10.8 [facility] Comment on above: Performed By: #### 2 455828, 78382535, 0769652, 1954474, 1898459, 1241884 #### [facility] [address] [place] [address] Platelets (Bld) [#/Vol] 184.0 E9/L Normal 150.0-500.0 [facility] Comment on above: Performed By: #### 2 685349, 73545224, 8982521, 3739125, 7849952, 5283471 #### [facility] [address] [place] [address] RBC (Bld) [#/Vol] 4.2 E12/L Low 4.3-5.9 [facility] Comment on above: Performed By: #### 2 727557, 83634729, 9442358, 2117513, 8492164, 9310688 #### [facility] [address] [place] [address] WBC corrected for nucl RBC Auto (Bld) [#/Vol] 4.4 E9/L Normal 4.0-11.0 [facility] Comment on above: Performed By: #### 2 928494, 19865370, 3388440, 0767668, 9967024, 1248450 #### [facility] [address] [place] [address] CHEMISTRYOrdered By: SYSTEM SYSTEM on 06-30-2023 Albumin [...] mL/min/1.73 m2 Normal >=59mL/min/1 .73 m2 [facility] Chem S Comment on above: Interpretive Data: [...] Treatmenton 06-14 Consent for Treatment [id number] .[id number] [facility] Consent for Treatment [id number] .00TIFF [facility] HEMATOLOGYOrdered By: SYSTEM SYSTEM on [...] 4.2 E12/L Low 4.3 - 5.9 E12/L [facility] HemeAutoSS WBC corrected for nucl RBC Auto (Bld) [#/Vol] 4.4 E9/L Normal 4.0 - 11.0 E9/L [facility] HemeAutoSS Hep Func Panelon 06-30-2023 Bilirubin.indirect [Mass or moles/Vol] UTC Abnormal 0.1-0.9 [facility] Comment on above: Result Comment: Resu lt verified by Discern Rule. Performed result UT (Unable to Calculate) was sent as an Alpha code due the inability to calculate a valid numeric value. Performed By: #### 2 011336, 17939706, 6804904, 8873434, 6150418, 4276357 #### [facility] [address] [place] [address] Albumin [Mass/Vol] 3.8 g/dL Normal 3.3-5.0 [facility] Comment on above: Performed By: #### 2 534337, 00948645, 7995215, 7951159, 3726640, 8963601 #### [facility] [address] [place] [address] Albumin/Globulin (S) [Mass conc ratio] 1.3 Normal 1.1-2.2 [facility] Comment on above: Performed By: #### 2 339077, 69914143, 9827138, 1372682, 4641584, 7664570 #### [facility] [address] [place] [address] ALP [Catalytic activity/Vol] 56 Int._Unit/L Normal 21-98 [facility] Comment on above: Performed By: #### 2 878624, 80684544, 1521084, 5056520, 4809932, 0753605 #### [facility] [address] [place] [address] ALT No additional P-5'-P [Catalytic activity/Vol] 50 Int._Unit/L High 6-46 [facility] Comment on above: Performed By: #### 2 850139, 88745373, 9609766, 3404598, 6915583, 6903419 #### [facility] [address] [place] [address] AST [Catalytic activity/Vol] 45 Int._Unit/L High 5-43 [facility] Comment on above: Performed By: #### 2 375188, 89462203, 5052108, 1792098, 3756525, 1119887 #### [facility] [address] [place] [address] Bilirubin [Mass/Vol] 0.5 mg/dL Normal 0.0-1.1 [facility] Comment on above: Performed By: #### 2 101809, 82804815, 0685148, 8969288, 8671210, 0081623 #### [facility] [address] [place] [address] Globulin (S) [Mass/Vol] 3.0 g/dL Normal 1.4-4.0 [facility] Comment on above: Performed By: #### 2 226301, 34927907, 8315253, 1175488, 9005308, 1431076 #### [facility] [address] [place] [address] Protein [Mass/Vol] 6.8 g/dL Normal 6.0-7.8 [facility] Comment on above: Performed By: #### 2 983617, 78124364, 5971649, 3722184, 1485982, 6939199 #### [facility] [address] [place] [address] Bilirubin.direct [Mass/Vol] mg/dL Normal 0.1-0.4 [facility] Comment on above: Performed By: #### 2 517967, 09998276, 2531993, 8745064, 8531456, 5069663 #### [facility] [address] [place] [address] Lipase Levelon 06-30-2023 Lipase [Catalytic activity/Vol] 31 U/L Normal 13-58 [facility] Comment on above: Performed By: #### 2 100301, 71001003, 8841390, 2457088, 6572322, 2029827 #### [facility] [address] [place] [address] UA With Cult Reflexon 2022 Bacteria LM Ql (Urine sed) TRACE Normal Trace [facility] Comment on above: Performed By: #### 2 916264, 05892321, 0076990, 9671955, 0072301, 2153070 #### [facility] [address] [place] [address] Bilirubin Ql (U) Negative Normal Negative [facility] Comment on above: Performed By: #### 2 935401, 11948550, 6815211, 6354703, 2001566, 8172982 #### [facility] [address] [place] [address] Clarity (U) CLEAR Normal Clear [facility] Comment on above: Performed By: #### 2 918805, 96519108, 0557249, 6523089, 8622886, 8376456 #### [facility] [address] [place] [address] Color (U) YELLOW Normal Yellow [facility] Comment on above: Performed By: #### 2 732865, 80663293, 7824761, 8272988, 8686716, 0200646 #### [facility] [address] [place] [address] Epithelial cells.squamous LM.HPF (Urine sed) [#/Area] 0-2 Normal 0-2 [facility] Comment on above: Performed By: #### 2 299957, 49152892, 9897259, 8074417, 9291626, 3662655 #### [facility] [address] [place] [address] Glucose Test strip (U) [Mass/Vol] Negative Normal Negative [facility] Comment on above: Performed By: #### 2 240991, 52905964, 1407960, 7276069, 8230019, 1560035 #### [facility] [address] [place] [address] Hemoglobin Ql (U) TRACE Abnormal Negative [facility] Comment on above: Performed By: #### 2 392831, 73271089, 9442480, 0648248, 8038684, 5614450 #### [facility] [address] [place] [address] Ketones (U) [Mass/Vol] Negative Normal Negative [facility] Comment on above: Performed By: #### 2 628875, 29937048, 2363799, 6671915, 7973874, 3612119 #### [facility] [address] [place] [address] [place].plasma/Lithiu m.RBC (Bld) [Mass ratio] 0-3 Normal 0-3 [facility] Comment on above: Performed By: #### 2 455371, 87535387, 8612988, 7895328, 9356727, 8698900 #### [facility] [address] [place] [address] Nitrite Ql (U) Negative Normal Negative [facility] Comment on above: Performed By: #### 2 821591, 10941445, 3560466, 0610587, 5537864, 4325494 #### [facility] [address] [place] [address] pH (U) 6.5 [pH] Invalid Interpretation Code 5.0-9.0 [facility] Comment on above: Performed By: #### 2 030897, 27060633, 2935662, 6785739, 4748294, 1408581 #### [facility] [address] [place] [address] Protein (U) [Mass/Vol] Negative Normal Negative [facility] Comment on above: Performed By: #### 2 582993, 60293118, 4898749, 5033464, 0780864, 2363481 #### [facility] [address] [place] [address] Specific gravity (U) [Rel density] <=1.005 Invalid Interpretation Code 1.005-1.030 [facility] Comment on above: Performed By: #### 2 650689, 56018391, 7144989, 4773860, 9308157, 7932643 #### [facility] [address] [address] Type of Urine collection method Clean Catch Normal [facility] Comment on above: Performed By: #### 2 636515, 48447779, 5256911, 2602333, 5364558, 9078521 #### [facility] [address] [place] [address] Urobilinogen Qn (U) 0.2 {Judith'U}/dL Normal 0.0-1.0 [facility] Comment on above: Performed By: #### 2 175669, 85764096, 0685398, 0494764, 5249142, 5058776 #### [facility] [address] [place] [address] WBC Auto Ql (U) Negative Normal Negative [facility] Comment on above: Performed By: #### 2 279595, 77452791, 5277184, 3240727, 4236505, 5602763 #### [facility] [address] [place] [address] WBC LM.HPF (Urine sed) [#/Area] 0-5 Normal 0-5 [facility] Comment on above: Performed By: #### 2 101013, 32527367, 3448859, 9721858, 3417522, 9086034 #### [facility] [address] [place] [address] URINALYSISOrdered By: Brian Davis on 06-30-2023 Bacteria [...] PM) Normal Negative [facility] UA Auto SS [place].plasma/Lithiu m.RBC (Bld) [Mass ratio] 0-3 /HPF Normal [...] [facility] UA Auto SS Urobilinogen Qn (U) 0.7934180 {Juidth'U}/dL Normal 0.0 - 1.0 EU/dL [facility] UA Auto SS WBC Auto Ql (U) Negative (06/30/23 8:00 PM) Normal Negative [facility] UA Auto SS WBC LM.HPF (Urine sed) [#/Area] 0-5 /HPF Normal 0-5/HPF [facility] UA Auto SS eGFRon 06-30-2023 GFR/1.73 sq M.predicted among non-blacks MDRD (S/P/Bld) [Vol rate/Area] 77 mL/min/1.73 m2 Normal >=59 [facility] Comment on above: Order Comment: Order added by Discern Expert. Result Comment: Biosolids Management Technician luis kidney disease could be indicated at eGFR's of less than 60 mL/min/1.73m2. Kidney failure is indicated at less than 15 mL/min/1.73m2. Performed By: #### [id number] #### [facility] [address] [place] [address] URINALYSISOrdered By: Lan Eastman on 01-28-2023 Bilirubin [...] PM) Normal Negative [facility] UA Auto SS [place].plasma/Lithiu m.RBC (Bld) [Mass ratio] 0-3 /HPF Normal [...] [facility] UA Auto SS Urobilinogen Qn (U) [id number] {Judith'U}/dL Normal 0.0 - 1.0 EU/dL [facility] UA Auto SS WBC Auto Ql (U) Negative (01/28/23 11:04 PM) Normal Negative [facility] UA Auto SS WBC LM.HPF (Urine sed) [#/Area] 0-5 /HPF Normal 0-5/HPF [facility] UA Auto SS Q - SARS CoV2 COVID 19 Ab Ig Clarence 08-20-2021 SARS-CoV-2 (COVID-19) Ab IA Qn 25.84 index High <1.00 [facility] Groove Cutter Comment on above: Order Comment: [facility] performed at: [facility], [employer] [facility], [address], [address] [place], [id number], Freight Flow Sales Leader: Ab Vincent MD [facility] Collection Date/Time: [facility] [...] providers and patients using the following websites: [email or web address] Healthcare Providers: For additional information please refer to: http://education.SoftArt/faq/CMP464 (This link is being provided for informational/educational purposes only.) This test has been authorized by the FDA under an Emergency Use Authorization (EUA) for use by authorized laboratories. The FDA authorized labeling is available on the [employer] website: www.Neurodyn/Covid19. Performed By: #### [id number] #### [facility] Default [address] [place] [address] Reference Laboratory Testing Ordered By: [facility] Aoi.CoUser on 08-12-2021 SARS-CoV-2 (COVID-19) RNA JORDAN+probe Ql (Resp) Not detected Invalid Interpretation Code Not Detected [facility] SendOutsSS Comment on above: Result Comment: This nucleic acid amplification test was developed and its performance characteristics determined by [facility]. Nucleic acid amplification tests include RT-PCR and [...] detected) result in this assay. Performed at: [address] [id number] PhD Emily Fraser Vital Signs Date Time Vital Sign Value Performing Clinician Layo lora 05-14-2025 11:36-0400 Body height 160 cm Hannah Brian MD Work Phone: [facility] 05-14-2025 11:36-0400 Body mass index (BMI) [Ratio] 23.03 kg/m2 Hannah Brian MD Work Phone: [facility] 05-14-2025 11:36-0400 Body temperature 98.2 [degF] Hannah Brian MD Work Phone: [facility] 05-14-2025 11:36-0400 Body weight 58.97 kg Hannah Brian MD Work Phone: [facility] 05-14-2025 11:36-0400 Diastolic blood pressure 78 mm[Hg] Hannah Brian MD Work Phone: [facility] 05-14-2025 11:36-0400 Heart rate 72 /min Hannah Brian MD Work Phone: [facility] 05-14-2025 11:36-0400 SaO2% (BldA) [Mass fraction] 97 % Hannah Brian MD Work Phone: [facility] 05-14-2025 11:36-0400 Systolic blood pressure 128 mm[Hg] Hannah Brian MD Work Phone: [facility] 05-08-2025 14:26-0400 Body height 160 cm Hannah Brian MD Work Phone: [facility] 05-08-2025 14:26-0400 Body mass index (BMI) [Ratio] 23.17 kg/m2 Hannah Brian MD Work Phone: [facility] 05-08-2025 14:26-0400 Body temperature 98.29 [degF] Hannah Brian MD Work Phone: [facility] 05-08-2025 14:26-0400 Body weight 59.33 kg Hannah Brian MD Work Phone: [facility] 05-08-2025 14:26-0400 Diastolic blood pressure 78 mm[Hg] Hannah Brian MD Work Phone: [facility] 05-08-2025 14:26-0400 Heart rate 71 /min Hannah Brian MD Work Phone: [facility] 05-08-2025 14:26-0400 SaO2% (BldA) [Mass fraction] 98 % Hannah Brian MD Work Phone: [facility] 05-08-2025 14:26-0400 Systolic blood pressure 118 mm[Hg] Hannah Brian MD Work Phone: [facility] 04-21-2025 15:21-0400 Body height 160 cm Hannah Brian MD Work Phone: [facility] 04-21-2025 15:21-0400 Body mass index (BMI) [Ratio] 23.13 kg/m2 Hannah Brian MD Work Phone: [facility] 04-21-2025 15:21-0400 Body temperature 97.81 [degF] Hannah Brian MD Work Phone: [facility] 04-21-2025 15:21-0400 Body weight 59.24 kg Hannah Brian MD Work Phone: [facility] 04-21-2025 15:21-0400 Diastolic blood pressure 80 mm[Hg] Hannah Brian MD Work Phone: [facility] 04-21-2025 15:21-0400 Heart rate 71 /min Hannah Brian MD Work Phone: [facility] 04-21-2025 15:21-0400 SaO2% (BldA) [Mass fraction] 97 % Hannah Brian MD Work Phone: [facility] 04-21-2025 15:21-0400 Systolic blood pressure 120 mm[Hg] Hannah Brian MD Work Phone: [facility] 04-07-2025 13:46-0400 Body height 160 cm Hannah Brian MD Work Phone: [facility] 04-07-2025 13:46-0400 Body mass index (BMI) [Ratio] 23.6 kg/m2 Hannah Brian MD Work Phone: [facility] 04-07-2025 13:46-0400 Body temperature 98.2 [degF] Hannah Brian MD Work Phone: [facility] 04-07-2025 13:46-0400 Body weight 60.42 kg Hannah Brian MD Work Phone: [facility] 04-07-2025 13:46-0400 Diastolic blood pressure 62 mm[Hg] Hannah Brian MD Work Phone: [facility] 04-07-2025 13:46-0400 Heart rate 68 /min Hannah Brian MD Work Phone: [facility] 04-07-2025 13:46-0400 SaO2% (BldA) [Mass fraction] 99 % Hannah Brian MD Work Phone: [facility] 04-07-2025 13:46-0400 Systolic blood pressure 128 mm[Hg] Hannah Brian MD Work Phone: [facility] 01-22-2025 13:56-0400 Body height 160 cm Hannah Brian MD Work Phone: [facility] 01-22-2025 13:56-0400 Body mass index (BMI) [Ratio] 23.91 kg/m2 Hannah Brian MD Work Phone: [facility] 01-22-2025 13:56-0400 Body temperature 98.01 [degF] Hannah Brian MD Work Phone: [facility] 01-22-2025 13:56-0400 Body weight 61.24 kg Hannah Brian MD Work Phone: [facility] 01-22-2025 13:56-0400 Diastolic blood pressure 60 mm[Hg] Hannah Brian MD Work Phone: [facility] 01-22-2025 13:56-0400 Heart rate 70 /min Hannah Brian MD Work Phone: [facility] 01-22-2025 13:56-0400 SaO2% (BldA) [Mass fraction] 99 % Hannah Brian MD Work Phone: [facility] 01-22-2025 13:56-0400 Systolic blood pressure 138 mm[Hg] Hannah Brian MD Work Phone: [facility] 01-07-2025 15:47-0400 Body height 160 cm Hannah Brian MD Work Phone: [facility] 01-07-2025 15:47-0400 Body mass index (BMI) [Ratio] 23.95 kg/m2 Hannah Brian MD Work Phone: [facility] 01-07-2025 15:47-0400 Body temperature 97.9 [degF] Hannah Brian MD Work Phone: [facility] 01-07-2025 15:47-0400 Body weight 61.33 kg Hannah Brian MD Work Phone: [facility] 01-07-2025 15:47-0400 Diastolic blood pressure 70 mm[Hg] Hannah Brian MD Work Phone: [facility] 01-07-2025 15:47-0400 Heart rate 70 /min Hannah Brian MD Work Phone: [facility] 01-07-2025 15:47-0400 SaO2% (BldA) [Mass fraction] 97 % Hannah Brian MD Work Phone: [facility] 01-07-2025 15:47-0400 Systolic blood pressure 120 mm[Hg] Hannah Brian MD Work Phone: [facility] 12-17-2024 15:23-0400 Body height 160 cm Hannah Brian MD Work Phone: [facility] 12-17-2024 15:23-0400 Body mass index (BMI) [Ratio] 24.09 kg/m2 Hannah Brian MD Work Phone: [facility] 12-17-2024 15:23-0400 Body temperature 97.5 [degF] Hannah Brian MD Work Phone: [facility] 12-17-2024 15:23-0400 Body weight 61.69 kg Hannah Brian MD Work Phone: [facility] 12-17-2024 15:23-0400 Diastolic blood pressure 80 mm[Hg] Hannah Brian MD Work Phone: [facility] 12-17-2024 15:23-0400 Heart rate 74 /min Hannah Brian MD Work Phone: [facility] 12-17-2024 15:23-0400 SaO2% (BldA) [Mass fraction] 99 % Hannah Brian MD Work Phone: [facility] 12-17-2024 15:23-0400 Systolic blood pressure 128 mm[Hg] Hannah Brian MD Work Phone: [facility] 11-25-2024 11:32-0400 Body height 160 cm Hannah Brian MD Work Phone: [facility] 11-25-2024 11:32-0400 Body mass index (BMI) [Ratio] 24.45 kg/m2 Hannah Brian MD Work Phone: [facility] 11-25-2024 11:32-0400 Body temperature 97.81 [degF] Hannah Brian MD Work Phone: [facility] 11-25-2024 11:32-0400 Body weight 62.6 kg Hannah Brian MD Work Phone: [facility] 11-25-2024 11:32-0400 Diastolic blood pressure 60 mm[Hg] Hannah Brian MD Work Phone: [facility] 11-25-2024 11:32-0400 Heart rate 75 /min Hannah Brian MD Work Phone: [facility] 11-25-2024 11:32-0400 SaO2% (BldA) [Mass fraction] 96 % Hannah Brian MD Work Phone: [facility] 11-25-2024 11:32-0400 Systolic blood pressure 124 mm[Hg] Hannah Brian MD Work Phone: [facility] 11-18-2024 11:43-0400 Body height 160 cm Hannah Brian MD Work Phone: [facility] 11-18-2024 11:43-0400 Body mass index (BMI) [Ratio] 23.91 kg/m2 Hannah Brian MD Work Phone: [facility] 11-18-2024 11:43-0400 Body temperature 97.81 [degF] Hannah Brian MD Work Phone: [facility] 11-18-2024 11:43-0400 Body weight 61.24 kg Hannah Brian MD Work Phone: [facility] 11-18-2024 11:43-0400 Diastolic blood pressure 60 mm[Hg] Hannah Brian MD Work Phone: [facility] 11-18-2024 11:43-0400 Heart rate 70 /min Hannah Brian MD Work Phone: [facility] 11-18-2024 11:43-0400 SaO2% (BldA) [Mass fraction] 98 % Hannah Brian MD Work Phone: [facility] 11-18-2024 11:43-0400 Systolic blood pressure 120 mm[Hg] Hannah Brian MD Work Phone: [facility] 10-08-2024 12:58-0500 Body height 160 cm Sherlyn Shine PA Work Phone: [facility] 10-08-2024 12:58-0500 Body mass index (BMI) [Ratio] 23.91 kg/m2 Sherlyn Shine PA Work Phone: [facility] 10-08-2024 12:58-0500 Body temperature 97.9 [degF] Sherlyn Shine PA Work Phone: [facility] 10-08-2024 12:58-0500 Body weight 61.24 kg Sherlyn Shine PA Work Phone: [facility] 10-08-2024 12:58-0500 Diastolic blood pressure 70 mm[Hg] Sherlyn Shine PA Work Phone: [facility] 10-08-2024 12:58-0500 Heart rate 70 /min Sherlyn Shine PA Work Phone: [facility] 10-08-2024 12:58-0500 SaO2% (BldA) [Mass fraction] 97 % Sherlyn Shine PA Work Phone: [facility] 10-08-2024 12:58-0500 Systolic blood pressure 120 mm[Hg] Sherlyn Shine PA Work Phone: [facility] 08-12-2024 16:09-0500 Body height 161.3 cm Rickie Aviles CABLE SPLICER HELPER Work Phone: [facility] 08-12-2024 16:09-0500 Body mass index (BMI) [Ratio] 22.39 kg/m2 Rickie Aviles CABLE SPLICER HELPER Work Phone: [facility] 08-12-2024 16:09-0500 Body temperature 97.7 [degF] Rickie Aviles CABLE SPLICER HELPER Work Phone: [facility] 08-12-2024 16:09-0500 Body weight 58.24 kg Rickie Braunnamiller CABLE SPLICER HELPER Work Phone: [facility] 08-12-2024 16:09-0500 Diastolic blood pressure 70 mm[Hg] Rickie Donnamiller CABLE SPLICER HELPER Work Phone: [facility] 08-12-2024 16:09-0500 Heart rate 73 /min Rickie Kumariller CABLE SPLICER HELPER Work Phone: [facility] 08-12-2024 16:09-0500 SaO2% (BldA) [Mass fraction] 99 % Rickie Kumariller CABLE SPLICER HELPER Work Phone: [facility] 08-12-2024 16:09-0500 Systolic blood pressure 124 mm[Hg] Rickie Braunnamiller CABLE SPLICER HELPER Work Phone: [facility] 08-05-2024 15:19-0500 Body height 161.3 cm Stephan Boo DO Work Phone: [facility] 08-05-2024 15:19-0500 Body mass index (BMI) [Ratio] 21.8 kg/m2 Stephan Boo DO Work Phone: [facility] 08-05-2024 15:19-0500 Body weight 56.7 kg Stephan Boo DO Work Phone: [facility] 08-05-2024 15:19-0500 Diastolic blood pressure 84 mm[Hg] Stephan Boo DO Work Phone: [facility] 08-05-2024 15:19-0500 Systolic blood pressure 130 mm[Hg] Stephan Boo DO Work Phone: [facility] 07-01-2024 15:35-0500 Body height 165.1 cm Sherlyn ABRAMS Work Phone: [facility] 07-01-2024 15:35-0500 Body mass index (BMI) [Ratio] 20.93 kg/m2 Sherlyn ABRAMS Work Phone: [facility] 07-01-2024 15:35-0500 Body temperature 97.7 [degF] Sherlyn Shine PA Work Phone: [facility] 07-01-2024 15:35-0500 Body weight 57.06 kg Sherlyn Shine PA Work Phone: [facility] 07-01-2024 15:35-0500 Diastolic blood pressure 80 mm[Hg] Sherlyn Shine PA Work Phone: [facility] 07-01-2024 15:35-0500 Heart rate 86 /min Sherlyn Shine PA Work Phone: [facility] 07-01-2024 15:35-0500 SaO2% (BldA) [Mass fraction] 98 % Sherlyn Shine PA Work Phone: [facility] 07-01-2024 15:35-0500 Systolic blood pressure 120 mm[Hg] Sherlyn Shine PA Work Phone: [facility] 06-27-2024 11:13-0500 Body mass index (BMI) [Ratio] 19.97 kg/m2 Raphael Goldsmith MD Work Phone: [facility] 06-27-2024 11:13-0500 Body temperature 96.6 [degF] Raphael Goldsmith MD Work Phone: [facility] 06-27-2024 11:13-0500 Body weight 54.43 kg Raphael Goldsmith MD Work Phone: [facility] 06-27-2024 11:13-0500 Diastolic blood pressure 60 mm[Hg] Raphael Goldsmith MD Work Phone: [facility] 06-27-2024 11:13-0500 Heart rate 83 /min Raphael Goldsmith MD Work Phone: [facility] 06-27-2024 11:13-0500 Systolic blood pressure 149 mm[Hg] Raphael Goldsmith MD Work Phone: [facility] 11-22-2023 20:52-0400 Body temperature 97.7 [degF] Jayson Brodie [facility] 11-22-2023 20:52-0400 Diastolic blood pressure 80 mm[Hg] Jayson Brodie [facility] 11-22-2023 20:52-0400 Heart rate 60 /min Jyason Brodie [facility] 11-22-2023 20:52-0400 Respiratory rate 17 /min Jayson Brodie [facility] 11-22-2023 20:52-0400 SaO2% (BldA) [Mass fraction] 100 % Jayson Brodie [facility] 11-22-2023 20:52-0400 Systolic blood pressure 147 mm[Hg] Jayson Brodie [facility] 11-22-2023 18:32-0400 Heart rate 87 /min Jayson Brodie [facility] 11-22-2023 18:32-0400 Respiratory rate 18 /min Jayson Brodie [facility] 11-22-2023 18:32-0400 SaO2% (BldA) [Mass fraction] 98 % Jayson Brodie [facility] 11-22-2023 17:50-0400 Diastolic blood pressure 80 mm[Hg] Jayson Brodie [facility] 11-22-2023 17:50-0400 Heart rate 68 /min Jayson Brodie [facility] 11-22-2023 17:50-0400 Respiratory rate 18 /min Jayson Brodie [facility] 11-22-2023 17:50-0400 SaO2% (BldA) [Mass fraction] 98 % Jayson Brodie [facility] 11-22-2023 17:50-0400 Systolic blood pressure 134 mm[Hg] Jayson Brodie [facility] 11-22-2023 16:24-0400 Body temperature 96.8 [degF] Jayson Brodie [facility] 11-22-2023 16:24-0400 Diastolic blood pressure 68 mm[Hg] Jayson Brodie [facility] 11-22-2023 16:24-0400 Systolic blood pressure 131 mm[Hg] Jayson Brodie [facility] 10-05-2023 21:54-0500 Diastolic blood pressure 81 mm[Hg] Kaylinn Dokken [facility] 10-05-2023 21:54-0500 Heart rate 75 /min Kaylinn Dokken [facility] 10-05-2023 21:54-0500 Respiratory rate 19 /min Kaylinn Dokken [facility] 10-05-2023 21:54-0500 SaO2% (BldA) [Mass fraction] 100 % Kaylinn Dokken [facility] 10-05-2023 21:54-0500 Systolic blood pressure 144 mm[Hg] Kaylinn Dokken [facility] 10-05-2023 18:04-0500 Body temperature 97.7 [degF] Kaylinn Dokken [facility] 10-05-2023 18:04-0500 Diastolic blood pressure 78 mm[Hg] Kaylinn Dokken [facility] 10-05-2023 18:04-0500 Heart rate 95 /min Kaylinn Dokken [facility] 10-05-2023 18:04-0500 Respiratory rate 22 /min Koby Masterson [facility] 10-05-2023 18:04-0500 SaO2% (BldA) [Mass fraction] 100 % Koby Masterson [facility] 10-05-2023 18:04-0500 Systolic blood pressure 131 mm[Hg] Koby Masterson [facility] 09-26-2023 09:13-0500 Body height 165.1 cm Ana [place] PRODUCTION LINE OPERATOR.STATOR WINDER Work Phone: [facility] 09-26-2023 09:13-0500 Body weight 50.8 kg Aan [place] PRODUCTION LINE OPERATOR.STATOR WINDER Work Phone: [facility] 09-26-2023 09:13-0500 Diastolic blood pressure 57 mm[Hg] Ana [place] PRODUCTION LINE OPERATOR.STATOR WINDER Work Phone: [facility] 09-26-2023 09:13-0500 Heart rate 72 /min Ana [place] PRODUCTION LINE OPERATOR.STATOR WINDER Work Phone: [facility] 09-26-2023 09:13-0500 Respiratory rate 20 /min Ana [place] PRODUCTION LINE OPERATOR.STATOR WINDER Work Phone: [facility] 09-26-2023 09:13-0500 SaO2% (BldA) [Mass fraction] 98 % Ana [place] PRODUCTION LINE OPERATOR.STATOR WINDER Work Phone: [facility] 09-26-2023 09:13-0500 Systolic blood pressure 118 mm[Hg] Ana [place] PRODUCTION LINE OPERATOR.STATOR WINDER Work Phone: [facility] 09-18-2023 17:51-0500 Body height 165.1 cm Peggy Nazario MD Work Phone: [facility] 09-18-2023 17:51-0500 Body mass index (BMI) [Ratio] 19.34 kg/m2 Peggy Nazario MD Work Phone: [facility] 09-18-2023 17:51-0500 Body temperature 98.01 [degF] Peggy Nazario MD Work Phone: [facility] 09-18-2023 17:51-0500 Body weight 52.71 kg Peggy Nazario MD Work Phone: [facility] 09-18-2023 17:51-0500 Diastolic blood pressure 66 mm[Hg] Peggy Nazario MD Work Phone: [facility] 09-18-2023 17:51-0500 Heart rate 75 /min Peggy Nazario MD Work Phone: [facility] 09-18-2023 17:51-0500 SaO2% (BldA) [Mass fraction] 99 % Peggy Nazario MD Work Phone: [facility] 09-18-2023 17:51-0500 Systolic blood pressure 136 mm[Hg] Peggy Nazario MD Work Phone: [facility] 09-17-2023 06:00-0500 Diastolic blood pressure 60 mm[Hg] Parveen Armen [facility] 09-17-2023 06:00-0500 Heart rate 61 /min Parveen Armen [facility] 09-17-2023 06:00-0500 Mean blood pressure 79 mm[Hg] Parveen Armen [facility] 09-17-2023 06:00-0500 Respiratory rate 11 /min Parveen Armen [facility] 09-17-2023 06:00-0500 SaO2% (BldA) [Mass fraction] 100 % Parveen Armen [facility] 09-17-2023 06:00-0500 Systolic blood pressure 118 mm[Hg] Parveen Armen [facility] 09-17-2023 05:06-0500 Body temperature 96.98 [degF] Parveen Armen [facility] 09-17-2023 05:06-0500 Diastolic blood pressure 58 mm[Hg] Parveen Armen [facility] 09-17-2023 05:06-0500 gluc 79 mg/dL Parveen Armen [facility] 09-17-2023 05:06-0500 gluc Parveen Armen [facility] 09-17-2023 05:06-0500 Heart rate 85 /min Parveen Armen [facility] 09-17-2023 05:06-0500 Respiratory rate 20 /min Parveen Armen [facility] 09-17-2023 05:06-0500 SaO2% (BldA) [Mass fraction] 98 % Parveen Armen [facility] 09-17-2023 05:06-0500 Systolic blood pressure 140 mm[Hg] Parveen Armen [facility] 09-12-2023 06:38-0500 Diastolic blood pressure 93 mm[Hg] Parveen Armen [facility] 09-12-2023 06:38-0500 Heart rate 78 /min Parveen Armen [facility] 09-12-2023 06:38-0500 Mean blood pressure 109 mm[Hg] Parveen Armen [facility] 09-12-2023 06:38-0500 Respiratory rate 13 /min Parveen Armen [facility] 09-12-2023 06:38-0500 SaO2% (BldA) [Mass fraction] 98 % Parveen Armen [facility] 09-12-2023 06:38-0500 Systolic blood pressure 142 mm[Hg] Parveen Armen [facility] 09-12-2023 05:58-0500 Diastolic blood pressure 96 mm[Hg] Parveen Armen [facility] 09-12-2023 05:58-0500 Heart rate 55 /min Parveen Armen [facility] 09-12-2023 05:58-0500 Mean blood pressure 112 mm[Hg] Parveen Armen [facility] 09-12-2023 05:58-0500 Respiratory rate 16 /min Parveen Armen [facility] 09-12-2023 05:58-0500 SaO2% (BldA) [Mass fraction] 100 % Parveen Armen [facility] 09-12-2023 05:58-0500 Systolic blood pressure 144 mm[Hg] Parveen Armen [facility] 09-12-2023 04:56-0500 Diastolic blood pressure 77 mm[Hg] Parveen Armen [facility] 09-12-2023 04:56-0500 Heart rate 60 /min Parveen Armen [facility] 09-12-2023 04:56-0500 Mean blood pressure 94 mm[Hg] Parveen Armen [facility] 09-12-2023 04:56-0500 Respiratory rate 18 /min Parveen Armen [facility] 09-12-2023 04:56-0500 SaO2% (BldA) [Mass fraction] 100 % Parveen Ayers [facility] 09-12-2023 04:56-0500 Systolic blood pressure 129 mm[Hg] Parveen Armen [facility] 09-12-2023 04:27-0500 gluc 96 mg/dL Parveen Armen [facility] 09-12-2023 04:27-0500 gluc Parveen Ayers [facility] 09-12-2023 04:13-0500 Body temperature 96.98 [degF] Parveen Ayers [facility] 09-12-2023 04:13-0500 Heart rate 83 /min Parveen Ayers [facility] 09-12-2023 04:13-0500 Respiratory rate 16 /min Parveen Ayers [facility] 08-11-2023 08:55-0500 Body height 165.1 cm Peggy Nazario MD Work Phone: [facility] 08-11-2023 08:55-0500 Body mass index (BMI) [Ratio] 19.44 kg/m2 Peggy Nazario MD Work Phone: [facility] 08-11-2023 08:55-0500 Body temperature 97.9 [degF] Peggy Nazario MD Work Phone: [facility] 08-11-2023 08:55-0500 Body weight 52.98 kg Peggy Nazario MD Work Phone: [facility] 08-11-2023 08:55-0500 Diastolic blood pressure 68 mm[Hg] Peggy Nazario MD Work Phone: [facility] 08-11-2023 08:55-0500 Heart rate 69 /min Peggy Nazario MD Work Phone: [facility] 08-11-2023 08:55-0500 SaO2% (BldA) [Mass fraction] 99 % Peggy Nazario MD Work Phone: [facility] [facility] 08-11-2023 08:55-0500 Systolic blood pressure 122 mm[Hg] Peggy Nazario MD Work Phone: [facility] 07-21-2023 06:46-0500 Blood Pressure Location Johan HENRIQUEZ [facility] 07-21-2023 06:46-0500 Diastolic blood pressure 57 mm[Hg] Johan HENRIQUEZ [facility] 07-21-2023 06:46-0500 Heart rate 81 /min Johan HENRIQUEZ [facility] 07-21-2023 06:46-0500 Respiratory rate 18 /min Johan HENRIQUEZ [facility] 07-21-2023 06:46-0500 SaO2% (BldA) [Mass fraction] 100 % Johan HENRIQUEZ [facility] 07-21-2023 06:46-0500 Systolic blood pressure 118 mm[Hg] Johan HENRIQUEZ [facility] 07-20-2023 09:56-0500 Blood Pressure Location Johan HENRIQUEZ [facility] 07-20-2023 09:56-0500 Diastolic blood pressure 52 mm[Hg] Johan HENRIQUEZ [facility] 07-20-2023 09:56-0500 Heart rate 62 /min Johan HENRIQUEZ [facility] 07-20-2023 09:56-0500 SaO2% (BldA) [Mass fraction] 98 % Johan HENRIQUZE [facility] 07-20-2023 09:56-0500 Systolic blood pressure 105 mm[Hg] Johan HENRIQUEZ [facility] 07-07-2023 12:38-0500 Diastolic blood pressure 59 mm[Hg] Jeff Tay [facility] 07-07-2023 12:38-0500 Heart rate 94 /min Jeff Tay [facility] 07-07-2023 12:38-0500 Respiratory rate 13 /min Jeff Tay [facility] 07-07-2023 12:38-0500 SaO2% (BldA) [Mass fraction] 94 % Jeff Tay [facility] 07-07-2023 12:38-0500 Systolic blood pressure 123 mm[Hg] Jeff Tay [facility] 07-07-2023 12:00-0500 Diastolic blood pressure 83 mm[Hg] Jeff Tay [facility] 07-07-2023 12:00-0500 Heart rate 102 /min Jeff Tay [facility] 07-07-2023 12:00-0500 Mean blood pressure 96 mm[Hg] Jeff Tay [facility] 07-07-2023 12:00-0500 Respiratory rate 17 /min Jeff Tay [facility] 07-07-2023 12:00-0500 SaO2% (BldA) [Mass fraction] 96 % Jeff Tay [facility] 07-07-2023 11:34-0500 Diastolic blood pressure 73 mm[Hg] Jeff Tay [facility] 07-07-2023 11:34-0500 Heart rate 93 /min Jeff Tay [facility] 07-07-2023 11:34-0500 Respiratory rate 18 /min Jeff Tay [facility] 07-07-2023 11:34-0500 SaO2% (BldA) [Mass fraction] 94 % Jeff Wadee [facility] 07-07-2023 11:34-0500 Systolic blood pressure 109 mm[Hg] Jeff Wadee [facility] 07-07-2023 09:52-0500 Heart rate 103 /min Jeff Wadee [facility] 07-07-2023 08:57-0500 Body temperature 97.88 [degF] Jeff Wadee [facility] 07-07-2023 08:57-0500 Heart rate 134 /min Jeff Wadee [facility] 07-07-2023 08:57-0500 Respiratory rate 24 /min Jeff Cross [facility] 07-06-2023 14:03-0500 Hourly Rounding Ronobir ABDI [facility] 07-06-2023 14:03-0500 Promise to Return Ronobir ABDI [facility] 07-06-2023 13:34-0500 Hourly Rounding Ronobir ABDI [facility] 07-06-2023 13:00-0500 Hourly Rounding Ronobir ABDI [facility] 07-06-2023 13:00-0500 Promise to Return Ronobir ABDI [facility] 07-06-2023 12:07-0500 Promise to Return Ronobir ABDI [facility] 07-06-2023 12:00-0500 Blood Pressure Location Ronobir ABDI [facility] 07-06-2023 12:00-0500 Body temperature 98.06 [degF] Ronobir ABDI [facility] 07-06-2023 12:00-0500 Diastolic blood pressure 69 mm[Hg] Ronobir ABDI [facility] 07-06-2023 12:00-0500 Heart rate 78 /min Ronobir ABDI [facility] 07-06-2023 12:00-0500 Mean blood pressure 81 mm[Hg] Ronobir ABDI [facility] 07-06-2023 12:00-0500 SaO2% (BldA) [Mass fraction] 94 % Ronobir ABDI [facility] 07-06-2023 12:00-0500 Systolic blood pressure 105 mm[Hg] Ronobir ABDI [facility] 07-06-2023 10:00-0500 Diastolic blood pressure 66 mm[Hg] Ronobir ABDI [facility] 07-06-2023 10:00-0500 Heart rate 77 /min Ronobir ABDI [facility] 07-06-2023 10:00-0500 Mean blood pressure 78 mm[Hg] Ronobir ABDI [facility] 07-06-2023 10:00-0500 Systolic blood pressure 103 mm[Hg] Ronobir ABDI [facility] 07-06-2023 07:00-0500 Body temperature 97.7 [degF] Ronobir ABDI [facility] 07-06-2023 07:00-0500 Diastolic blood pressure 60 mm[Hg] Ronobir ABDI [facility] 07-06-2023 07:00-0500 SaO2% (BldA) [Mass fraction] 93 % Ronobir ABDI [facility] 07-06-2023 07:00-0500 Systolic blood pressure 97 mm[Hg] Ronobir ABDI [facility] 07-06-2023 00:18-0500 Body temperature 97.7 [degF] Ronobir ABDI [facility] 07-06-2023 00:18-0500 SaO2% (BldA) [Mass fraction] 93 % Ronobir ABDI [facility] 07-05-2023 22:10-0500 Mean blood pressure 79 mm[Hg] Ronobir ABDI [facility] 07-05-2023 16:03-0500 Mean blood pressure 88 mm[Hg] Ronobir ABDI [facility] 07-05-2023 11:18-0500 Mean blood pressure 77 mm[Hg] Ronobir ABDI [facility] 07-05-2023 11:18-0500 Body temperature 98.06 [degF] Ronobir ABDI [facility] 07-05-2023 09:59-0500 Mean blood pressure 86 mm[Hg] Ronobir ABDI [facility] 07-05-2023 09:58-0500 Body temperature 98.42 [degF] Ronobir ABDI [facility] 07-04-2023 19:23-0500 Body temperature 97.7 [degF] Ronobir ABDI [facility] 07-03-2023 18:22-0500 BP/Pulse Patient Position Ronobir ABDI [facility] 07-03-2023 14:00-0500 Respiratory rate 17 /min Ronobir ABDI [facility] 07-03-2023 06:46-0500 Respiratory rate 18 /min Ronobir ABDI [facility] 07-03-2023 06:45-0500 BP/Pulse Patient Position Ronobir ABDI [facility] 07-03-2023 04:30-0500 Respiratory rate 16 /min Ronobir ABDI [facility] 07-03-2023 02:45-0500 Heart rate 90 /min Ronobir ABDI [facility] 07-03-2023 02:30-0500 Respiratory rate 12 /min Ronobir ABDI [facility] 07-03-2023 02:15-0500 Respiratory rate 13 /min Ronobir ABDI [facility] 07-02-2023 21:27-0500 Heart rate 141 /min Ronobir ABDI [facility] 07-02-2023 21:27-0500 Respiratory rate 18 /min Ronobir ABDI [facility] 07-01-2023 00:30-0500 Diastolic blood pressure 76 mm[Hg] Kaylinn Dokken [facility] 07-01-2023 00:30-0500 Heart rate 102 /min Kaylinn Dokken [facility] 07-01-2023 00:30-0500 Mean blood pressure 82 mm[Hg] Kaylinn Dokken [facility] 07-01-2023 00:30-0500 Respiratory rate 18 /min Kaylinn Dokken [facility] 07-01-2023 00:30-0500 SaO2% (BldA) [Mass fraction] 95 % Kaylinn Dokken [facility] 07-01-2023 00:30-0500 Systolic blood pressure 93 mm[Hg] Kaylinn Dokken [facility] 06-30-2023 23:24-0500 Diastolic blood pressure 73 mm[Hg] Kaylinn Dokken [facility] 06-30-2023 23:24-0500 Heart rate 102 /min Kaylinn Dokken [facility] 06-30-2023 23:24-0500 Mean blood pressure 92 mm[Hg] Kaylinn Dokken [facility] 06-30-2023 23:24-0500 Respiratory rate 16 /min Kaylinn Dokken [facility] 06-30-2023 23:24-0500 SaO2% (BldA) [Mass fraction] 94 % Kaylinn Dokken [facility] 06-30-2023 23:24-0500 Systolic blood pressure 130 mm[Hg] Kaylinn Dokken [facility] 06-30-2023 22:30-0500 Body temperature 97.88 [degF] Kaylinn Dokken [facility] 06-30-2023 22:30-0500 Diastolic blood pressure 112 mm[Hg] Kaylinn Dokken [facility] 06-30-2023 22:30-0500 Heart rate 114 /min Caitlyninn Dokken [facility] 06-30-2023 22:30-0500 Mean blood pressure 120 mm[Hg] Kaylinn Dokken [facility] 06-30-2023 22:30-0500 Respiratory rate 18 /min Lisylinn Dokken [facility] 06-30-2023 22:30-0500 SaO2% (BldA) [Mass fraction] 100 % Caitlyninn Dokken [facility] 06-30-2023 22:30-0500 Systolic blood pressure 137 mm[Hg] Caitlyninn Dokken [facility] 06-30-2023 19:33-0500 Body temperature 97.7 [degF] Caitlyninn Dokken [facility] 06-30-2023 19:33-0500 Heart rate 123 /min Aran Dokken [facility] 04-26-2023 15:19-0400 Blood Pressure Location Micheline BROOKS [facility] 04-26-2023 15:19-0400 Diastolic blood pressure 88 mm[Hg] Micheline BROOKS [facility] 04-26-2023 15:19-0400 Heart rate 80 /min Micheline BROOKS [facility] 04-26-2023 15:19-0400 Systolic blood pressure 139 mm[Hg] Micheline BROOKS [facility] 04-04-2023 16:30-0400 Diastolic blood pressure 51 mm[Hg] Jeff Tay [facility] 04-04-2023 16:30-0400 Heart rate 39 /min Jeff Wadee [facility] 04-04-2023 16:30-0400 Respiratory rate 14 /min Jeff Wadee [facility] 04-04-2023 16:30-0400 SaO2% (BldA) [Mass fraction] 99 % Jeff Wadee [facility] 04-04-2023 16:30-0400 Systolic blood pressure 145 mm[Hg] Jeff Wadee [facility] 04-04-2023 15:52-0400 Body temperature 98.06 [degF] Jeff Wadee [facility] 04-04-2023 15:52-0400 Diastolic blood pressure 81 mm[Hg] Jeff aWdee [facility] 04-04-2023 15:52-0400 Heart rate 66 /min Jeff Wadee [facility] 04-04-2023 15:52-0400 Respiratory rate 14 /min Jeff Wadee [facility] 04-04-2023 15:52-0400 SaO2% (BldA) [Mass fraction] 99 % Jeff Wadee [facility] 04-04-2023 15:52-0400 Systolic blood pressure 161 mm[Hg] Jeff Tay [facility] 04-04-2023 14:52-0400 Diastolic blood pressure 79 mm[Hg] Jeff Tay [facility] 04-04-2023 14:52-0400 Heart rate 64 /min Jeff Wadee [facility] 04-04-2023 14:52-0400 Respiratory rate 14 /min Jeff Cross [facility] 04-04-2023 14:52-0400 SaO2% (BldA) [Mass fraction] 100 % Jeff Cross [facility] 04-04-2023 14:52-0400 Systolic blood pressure 95 mm[Hg] Jeff Cross [facility] 04-04-2023 14:07-0400 Body temperature 98.06 [degF] Jeff Cross [facility] 04-04-2023 13:52-0400 Body temperature 98.24 [degF] Jeff Cross [facility] 04-04-2023 13:52-0400 Heart rate 107 /min Jeff Cross [facility] 01-28-2023 21:23-0400 Body temperature 97.7 [degF] [facility] 01-28-2023 21:23-0400 Diastolic blood pressure 78 mm[Hg] [facility] 01-28-2023 21:23-0400 Heart rate 82 /min [facility] 01-28-2023 21:23-0400 Respiratory rate 18 /min [facility] 01-28-2023 21:23-0400 SaO2% (BldA) [Mass fraction] 97 % [facility] 01-28-2023 21:23-0400 Systolic blood pressure 125 mm[Hg] [facility] 09-01-2022 14:01-0500 Diastolic blood pressure 75 mm[Hg] Yennifer Iraheta [facility] 09-01-2022 14:01-0500 Mean blood pressure 91 mm[Hg] Yennifer Iraheta [facility] 09-01-2022 14:01-0500 Systolic blood pressure 122 mm[Hg] Yennifer Esequiel [facility] 09-01-2022 13:48-0500 Blood Pressure Location Mohstacia Esequiel [facility] 09-01-2022 13:48-0500 Diastolic blood pressure 79 mm[Hg] Mohstacia Esequiel [facility] 09-01-2022 13:48-0500 Heart rate 60 /min Yennifer Esequiel [facility] 09-01-2022 13:48-0500 SaO2% (BldA) [Mass fraction] 98 % Yennifer Esequiel [facility] 09-01-2022 13:48-0500 Systolic blood pressure 149 mm[Hg] Yennifer Esequiel [facility] 06-13-2022 08:54-0400 Blood Pressure Location Yennifer Esequiel [facility] 06-13-2022 08:54-0400 Diastolic blood pressure 68 mm[Hg] Yennifer Esequiel [facility] 06-13-2022 08:54-0400 Heart rate 75 /min Yennifer Esequiel [facility] 06-13-2022 08:54-0400 SaO2% (BldA) [Mass fraction] 96 % Yennifer Esequiel [facility] 06-13-2022 08:54-0400 Systolic blood pressure 132 mm[Hg] Yennifer Esequiel [facility] 03-03-2022 09:59-0400 Blood Pressure Location CARMINA GARRISON [facility] 03-03-2022 09:59-0400 Diastolic blood pressure 89 mm[Hg] CARMINA GARRISON [facility] 03-03-2022 09:59-0400 Heart rate 77 /min CARMINA GARRISON [facility] 03-03-2022 09:59-0400 Systolic blood pressure 140 mm[Hg] CARMINA GARRISON [facility] 02-15-2022 13:17-0400 Body temperature 98.6 [degF] Jeff Wadee [facility] 02-15-2022 13:17-0400 Diastolic blood pressure 62 mm[Hg] Jeff Wadee [facility] 02-15-2022 13:17-0400 Heart rate 86 /min Jeff Tay [facility] 02-15-2022 13:17-0400 Respiratory rate 18 /min Jeff Wadee [facility] 02-15-2022 13:17-0400 SaO2% (BldA) [Mass fraction] 99 % Jeff Tay [facility] 02-15-2022 13:17-0400 Systolic blood pressure 151 mm[Hg] Jeff Tay [facility] 12-24-2021 17:39-0400 Body temperature 97.7 [degF] Jeff Tay [facility] 12-24-2021 17:39-0400 Diastolic blood pressure 70 mm[Hg] Jeff Tay [facility] 12-24-2021 17:39-0400 Heart rate 81 /min Jeff Tay [facility] 12-24-2021 17:39-0400 Respiratory rate 15 /min Jeff Cross [facility] 12-24-2021 17:39-0400 SaO2% (BldA) [Mass fraction] 100 % Jeff Cross [facility] 12-24-2021 17:39-0400 Systolic blood pressure 163 mm[Hg] Jeff Cross [facility] Encounters Encounter Date Encounter Type Care Provider Facility Start: 05-28-2025 Evaluation and manag ement of inpatient [facility] Start: 05-27-2025 Evaluation and manag ement of inpatient [facility] Start: 05-27-2025 ambulatory [facility] Start: 05-27-2025 End: 05-28-2025 Evaluation and management of inpatient [facility] Start: 05-19-2025 End: 05-19-2025 ambulatory [facility] Start: 05-14-2025 End: 05-14-2025 Shaggy Brian MD Work Phone: [facility] Start: 05-14-2025 End: 05-14-2025 Shaggy Brian MD Work Phone: [facility] Start: 05-14-2025 End: 05-14-2025 Office outpatient visit 25 minutes Hannah Brian MD Work Phone: [facility] Comment on above: Bee sting, accidenta l or unintentional, initial encounter (Primary Dx); Gastroesophageal reflux disease without esophagitis; Ear fullness, right; Fluid level behind tympanic membrane of right ear Start: 05-14-2025 End: 05-14-2025 ambulatory HANNAH BRIAN Not Available Start: 05-08-2025 End: 05-08-2025 Office outpatient visit 40 minutes Hannah Brian MD Work Phone: [facility] Comment on above: Hematuria, unspecifi ed type (Primary Dx); Painful urination; C. 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 Start: 05-08-2025 End: 05-08-2025 ambulatory HANNAH BRIAN Not Available Start: 05-08-2025 End: 05-08-2025 Bamboo lalit Brian MD Work Phone: [facility] Start: 05-08-2025 End: 05-08-2025 Shaggy Brian MD Work Phone: [facility] Start: 04-28-2025 End: 04-28-2025 Emergency department patient visit Layton Crawford Facility:[facility] Start: 04-24-2025 End: 04-24-2025 ambulatory Jayson Calloway Facility:[facility] Start: 04-21-2025 End: 04-21-2025 Office outpatient visit 25 minutes Hannah Brian MD Work Phone: [facility] Comment on above: Frequent urination ( Primary Dx); Painful urination; Mitral valve regurgitation due to cardiomyopathy (HCC); Exertional dyspnea; Hypertensive heart disease with heart failure (HCC); Atrial fibrillation, persistent (HCC); 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; Anxiety Start: 04-21-2025 End: 04-21-2025 ambulatory HANNAH BRIAN Not Available Start: 04-19-2025 End: 04-21-2025 Telephone encounter Hannah Brian MD Work Phone: [facility] Comment on above: 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) Start: 04-19-2025 End: 04-19-2025 Emergency department patient visit Jayson Calloway Facility:[facility] Start: 04-17-2025 End: 04-17-2025 Refill Hannah Brian MD Work Phone: [facility] Comment on above: Anxiety Start: 04-16-2025 End: 04-16-2025 ambulatory [facility] Start: 04-07-2025 End: 04-07-2025 Shaggy Brian MD Work Phone: [facility] Start: 04-07-2025 End: 04-07-2025 Shaggy Brian MD Work Phone: [facility] Start: 04-07-2025 End: 04-07-2025 Office outpatient visit 25 minutes Hannah Brian MD Work Phone: [facility] Comment on above: Frequent urination ( Primary Dx); Painful urination; Left lower quadrant pain; Gastroesophageal reflux disease without esophagitis; Exertional dyspnea; Mitral valve regurgitation due to cardiomyopathy (HCC); Hypertensive heart disease with heart failure (HCC); Unspecified systolic (congestive) heart failure (HCC) Start: 04-07-2025 End: 04-07-2025 ambulatory HANNAH BRIAN Not Available Start: 03-31-2025 End: 03-31-2025 ambulatory [facility] Start: 02-18-2025 End: 02-18-2025 ambulatory [facility] Start: 02-10-2025 End: 02-10-2025 ambulatory [facility] Start: 01-23-2025 End: 01-23-2025 ambulatory [facility] Start: 01-22-2025 End: 01-22-2025 Shaggy Brian MD Work Phone: [facility] Start: 01-22-2025 End: 01-22-2025 Shaggy Brian MD Work Phone: [facility] Start: 01-22-2025 End: 01-22-2025 Office outpatient visit 25 minutes Hannah Brian MD Work Phone: [facility] Comment on above: Atrial fibrillation, persistent (HCC) (CMS/HCC) (Primary Dx); 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; Mitral valve regurgitation due to cardiomyopathy (HCC) (CMS/HCC); Anxiety Start: 01-22-2025 End: 01-22-2025 ambulatory HANNAH BRIAN Not Available Start: 01-15-2025 Evaluation and manag ement of inpatient [facility] Start: 01-14-2025 Evaluation and manag ement of inpatient [facility] Start: 01-14-2025 ambulatory [facility] Start: 01-14-2025 End: 01-15-2025 Evaluation and management of inpatient [facility] Start: 01-13-2025 End: 01-13-2025 Shira CELESTIN NE [...] Phone: [facility] Start: 12-23-2024 ambulatory [facility] Start: 12-17-2024 End: 12-17-2024 Office outpatient [...] 12-17-2024 Refill Hannah Brian MD Work Phone: [facility] Comment on above: Anxiety Start: 12-13-2024 ambulatory [facility] Start: 11-29-2024 End: 11-29-2024 ambulatory [facility] Start: 11-25-2024 End: 11-25-2024 Shanello lalit Brian MD Work Phone: [facility] Start: 11-25-2024 End: 11-25-2024 Shaggy Brian MD Work Phone: [facility] Start: 11-25-2024 End: 11-25-2024 Office outpatient visit 25 minutes Hannah Brian MD Work Phone: [facility] Comment on above: Acute cough (Primary Dx); Bruising; 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; Atrial fibrillation, persistent (HCC) (CMS/HCC); Primary hypertension (CMS/HCC); Cardiomyopathy, unspecified Start: 11-25-2024 End: 11-25-2024 ambulatory HANNAH BRIAN Not Available Start: 11-18-2024 End: 11-21-2024 External Result Encounter Hannah Brian MD Work Phone: [facility] External Department Unsolicited Start: 11-18-2024 End: 11-21-2024 External Result Encounter Hannah Brian MD Work Phone: [facility] External Department Unsolicited Start: 11-18-2024 End: 11-18-2024 Office outpatient visit 25 minutes Hannah Brian MD Work Phone: [facility] Comment on above: Acute cough (Primary Dx); Hematuria, unspecified type; longterm current use of anticoagulant; Atrial fibrillation, persistent (HCC) (CMS/HCC); Primary hypertension (CMS/HCC) Start: 11-18-2024 End: 11-18-2024 ambulatory HANNAH BRIAN Not Available Start: 11-15-2024 End: 11-18-2024 Refill Hannah Brian MD Work Phone: [facility] Comment on above: Anxiety Start: 10-22-2024 End: 10-22-2024 ambulatory [facility] Start: 10-08-2024 End: 10-08-2024 Bamboo flowsheet [...] 08-20-2024 Refill Hannah Brian MD Work Phone: [facility] Comment on above: Anxiety Start: 08-12-2024 End: 08-12-2024 Office outpatient visit 25 minutes Rickie Aviles CABLE SPLICER HELPER Work Phone: [facility] Comment on above: Dysuria (Primary Dx) ; Urinary frequency; Atrial fibrillation, persistent (HCC) (CMS/HCC); 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; BMI 22.0-22.9, adult Start: 08-12-2024 End: 08-12-2024 ambulatory RICKIE A DONNAMILLER Not Available Start: 08-12-2024 End: 08-12-2024 Bamboo flowsheet Rickie Pierrer CABLE SPLICER HELPER Work Phone: [facility] Start: 08-12-2024 End: 08-12-2024 Bamboo flowsheet Rickie Pierrer CABLE SPLICER HELPER Work Phone: [facility] Start: 08-05-2024 End: 08-05-2024 Office outpatient visit 25 minutes Stephan Boo DO Work Phone: [facility] Comment on above: Postmenopausal atrop hic vaginitis; Breast cancer screening by mammogram Start: 08-05-2024 End: 08-05-2024 ambulatory STEPHAN BOO Not Available Start: 07-30-2024 End: 07-30-2024 ambulatory [facility] Start: 07-22-2024 End: 07-23-2024 Shira Brian MD Work Phone: [facility] Comment on above: Anxiety Start: 07-02-2024 End: 07-02-2024 ambulatory [facility] Start: 07-01-2024 End: 07-01-2024 Office outpatient [...] Start: 06-27-2024 End: 06-27-2024 ambulatory PEGGY NAZARIO Facility:[facility] Start: 06-27-2024 End: 06-27-2024 Patient encounter procedure Raphael Goldsmith MD Work Phone: Urology Comment on above: Feeling of incomplet e bladder emptying (Primary Dx); Stricture of female urethra, unspecified stricture type Start: 06-10-2024 ambulatory [facility] Start: 06-10-2024 End: 06-10-2024 ambulatory [facility] Start: 06-03-2024 End: 06-03-2024 ambulatory [facility] Facility:[facility] Start: 06-03-2024 End: 06-03-2024 Patient encounter procedure [facility] Start: 05-07-2024 End: 05-07-2024 Patient encounter [...] 11-22-2023 Emergency department patient visit Jayson Calloway [facility] Start: 11-13-2023 End: 11-13-2023 ambulatory Hannah Brian Facility:[facility] Start: 11-13-2023 End: 11-13-2023 Patient encounter procedure Hannah Brian [facility] Start: 10-16-2023 Telephone encounter Alea lynn MD Work Phone: Cardiology Comment on above: Patient Update Start: 10-16-2023 End: 10-16-2023 Patient encounter procedure Raphael Goldsmith MD Work Phone: Urology Comment on above: Feeling of incomplet e bladder emptying (Primary Dx); Stricture of female urethra, unspecified stricture type; Severe protein-calorie malnutrition (HCC) Start: 10-16-2023 End: 10-16-2023 ambulatory PEGGY NAZARIO Facility:[facility] Start: 10-05-2023 End: 10-05-2023 Emergency department patient visit Koby Salter Zelalem [facility] Start: 10-02-2023 Telephone encounter Alea lynn [...] 09-17-2023 Emergency department patient visit Parveen Ayers [facility] Start: 09-13-2023 Refill Peggy Nazario MD Work Phone: [facility] Comment on above: Anxiety Start: 09-12-2023 Refill Peggy Nazario MD Work Phone: [facility] Comment on above: Gastroesophageal ref lux disease without esophagitis Start: 09-12-2023 End: 09-12-2023 Emergency department patient visit Parveen Ayers [facility] Start: 08-28-2023 End: 08-28-2023 ambulatory PEGGY NAZARIO Facility:[facility] Start: 08-24-2023 Evaluation and manag ement of inpatient AMINA PETERSEN Facility:[facility] Start: 08-23-2023 End: 08-24-2023 Patient encounter procedure Prieto Villalba DO Work Phone: [facility] Start: 08-23-2023 End: 08-24-2023 ambulatory Prieto Villalba [...] to same day surgery center Johan HENRIQUEZ [facility] Start: 07-21-2023 End: 07-21-2023 ambulatory Johan HENRIQUEZ Facility:[facility] Start: 07-20-2023 End: 07-20-2023 ambulatory XXXX NONE Facility:[facility] Start: 07-20-2023 End: 07-20-2023 Patient encounter procedure Johan HENRIQUEZ [facility] Start: 07-19-2023 End: 07-19-2023 ambulatory Micheline BROOKS Facility:[facility] Start: 07-07-2023 End: 07-07-2023 Emergency department patient visit Jeff Cross [facility] Start: 07-04-2023 End: 07-06-2023 Pre-admission assessment Johan HENRIQUEZ [facility] Start: 07-02-2023 End: 07-06-2023 ambulatory Nahid SERRATO Facility:[facility] Start: 07-02-2023 End: 07-06-2023 Observation Noman PATTON [facility] Start: 06-30-2023 End: 07-01-2023 Emergency department patient visit Koby Masterson [facility] Start: 04-26-2023 End: 04-26-2023 Patient encounter procedure Micheline BROOKS [facility] Start: 04-04-2023 End: 04-04-2023 Emergency department patient visit Jeff Cross [facility] Start: 01-28-2023 End: 01-28-2023 Emergency department patient visit Layton Crawford [facility] Start: 12-05-2022 End: 12-05-2022 Patient encounter procedure Peggy Nazario [facility] Start: 10-25-2022 End: 10-25-2022 Patient encounter procedure Micheline BROOKS [facility] Start: 10-03-2022 End: 10-03-2022 Patient encounter procedure Asuncion Reyna [facility] [place] Start: 09-01-2022 End: 09-01-2022 Patient encounter procedure Yennifer Iraheta [facility] Start: 07-12-2022 End: 07-12-2022 Patient encounter procedure Yennifer Iraheta [facility] Start: 06-13-2022 End: 06-13-2022 Patient encounter procedure Yennifer Iraheta [facility] Start: 03-03-2022 End: 03-03-2022 Patient encounter procedure CARMINA GARRISON [facility] Start: 02-15-2022 End: 02-15-2022 Emergency department patient visit Jeff Cross [facility] Start: 12-24-2021 End: 12-24-2021 Emergency department patient visit Jeff Cross [facility] Start: 08-11-2021 End: 11-10-2021 Patient encounter procedure Peggy Nazario [facility] Procedures Date Procedure Procedure Detail Performing [...] Screening for malign ant neoplasm of colon [facility] Start: 01-30-2028 Urine microalbumin profile DTa P,Tdap,Td Vaccine (5 - Td or Tdap) [facility] Start: 02-21-2027 Diabetes Screening Diabetes Screenin g [facility] Start: 09-26-2026 Diabetes Screening Diabetes Screenin [facility] Start: 08-31-2026 Diabetes Screening Diabetes Screenin [facility] Start: 05-14-2025 End: 05-14-2025 Patient encounter procedure 05/14/2025 11:40 AM EDT [facility] [place] [facility] [address] [place] [phone] Hannah Brian MD [address] [place] [address] Arrived [facility] Comment on above: Arrived Start: 05-08-2025 End: 05-08-2025 Patient encounter procedure 05/08/2025 2:20 PM EDT Office Visit [facility] [place] [facility] [address] [place] [address] Hannah Brian MD [address] [place] [address] [facility] on above: Arrived Start: 04-21-2025 End: 04-21-2025 Patient encounter procedure 04/21/2025 3:00 PM EDT Office Visit [facility] [place] [facility] [address] [place] [address] Hannah Brian MD [address] [place] [address] [facility] [place] [facility] Start: 04-09-2025 End: 04-09-2025 Patient encounter procedure 04/09/2025 3:20 PM EDT [facility] [address] [place] [phone] Hannah Brian MD [address] [place] [address] [facility] Start: 04-07-2025 End: 04-07-2025 Patient encounter procedure 04/07/2025 1:40 PM EDT Office Visit [facility] [place] [facility] [address] [place] [phone] Hannah Brian MD [address] [place] [address] [facility] Comment on above: Arrived Start: 01-22-2025 End: 01-22-2025 Patient encounter procedure 01/22/2025 2:00 PM EDT Office Visit [facility] [address] [place] [phone] Hannah Brian MD [address] [place] [address] Arrived [facility] Comment on above: Arrived Start: 01-07-2025 End: 01-07-2025 Patient encounter procedure [facility] Comment on above: Arrived Start: 12-17-2024 End: 12-17-2024 Patient encounter procedure [facility] Comment on above: Arrived Start: 12-17-2024 End: 12-17-2025 Bacteria identified in Urine by Culture Urine culture Microbiology Routine Right flank pain Dysuria Urinary frequency Expected: 12/17/2024 (Approximate), Expires: 12/17/2025 [facility] Work Phone: Comment on above: Expected: 12/17/2024 (Approximate), Expires: 12/17/2025 Start: 11-25-2024 End: 11-25-2024 Patient encounter procedure 11/25/2024 11:00 AM EDT Office Visit [facility] [address] [place] [phone] Hannah Brian MD [address] [place] [address] Arrived [facility] Comment on above: Arrived [...] BP Controlled (<130/80) BP Controlle d (<130/80) [facility] Start: 08-28-2024 BP Controlled (<130/80) BP Controlle d (<130/80) [facility] Start: 08-12-2024 End: 08-12-2024 Patient encounter procedure 08/12/2024 4:00 PM EST Office Visit [facility] [address] [place] [address] Rickie Aviles NP [address] [place] [address] Arrived [facility] Comment on above: Arrived Start: 08-05-2024 End: 08-05-2024 Patient encounter procedure 08/05/2024 2:45 PM EST Office Visit [facility] [address] [place] [phone] Stephan Boo, DO [address] [place] [address] [facility] Start: 08-05-2024 End: 10-06-2025 DBT Breast - bilateral screening Bilateral screening mammogram with tomosynthesis Imaging Routine Breast cancer screening by mammogram Expected: 08/05/2024, Expires: 10/06/2025 [facility] Work Phone: Comment on above: Expected: 08/05/2024 , Expires: 10/06/2025 Start: 07-29-2024 End: 07-29-2024 Patient encounter procedure 07/29/2024 3:45 PM EST Office Visit [facility] [address] [place] [phone] Stephan Boo, DO [address] [place] [address] [facility] Start: 07-24-2024 Medicare Annual Well ness (AWV) Medicare Annual Wellness (AWV) [facility] Start: 07-01-2024 End: 07-01-2024 Patient encounter procedure 07/01/2024 3:30 PM EST Office Visit [facility] [address] [place] [address] Sherlyn Shine PA [address] [place] [address] Arrived [facility] Comment on above: Arrived [...] 11:10 AM EDT Office Visit Urology [address] [address] Raphael Goldsmith MD [address] [place] [address] 6 month follow up per cc chart Urology Comment on above: 6 month follow up pe r cc chart Start: 04-14-2024 Covid-19 Vaccine ( season) Covid-19 Vaccine () [facility] Start: 04-14-2024 Influenza vaccination [facility] Start: 11-10-2023 End: 11-10-2023 Patient encounter procedure 11/10/2023 1:00 PM EDT Office Visit [facility] [address] [place] [phone] Peggy Nazario MD [address] [place] [address] [facility] Start: 11-08-2023 End: 02-07-2024 Basic [...] Office Visit [facility] [address] [place] [address] Peggy Nazario MD [address] [place] [address] [facility] Start: 09-26-2023 End: 12-26-2023 [...] 08-14-2023 Advance Directive Discussion Advance Directive Discussion [facility] Start: 08-14-2023 Behavioral Health Screening Behavioral Health Screening [facility] Start: 08-14-2023 Depression Assessment Depression Ass essment [facility] Start: 04-14-2023 Covid-19 Vaccine ( season) Covid-19 Vaccine ( season) [facility] Start: 04-14-2023 Influenza vaccination Influenza Vacc ine (#1) [facility] Start: 2023 RSV Vaccine (1 - 1-d ose 75+ series) RSV Vaccine (1 - 1-dose 75+ series) [facility] Start: 08-14-2022 Advance Directive Discussion Advance Directive Discussion [facility] Start: 08-14-2022 Depression Assessment Depression Ass essment [facility] Start: 02-15-2019 Colonoscopy Colonoscopy [facility] Start: 02-15-2019 Colorectal Cancer Screening Colorectal Cancer Screening [facility] Start: 02-15-2019 Screening for malign ant neoplasm of colon [facility] Start: 2013 Bone Density Screening Bone Density Screening [facility] Start: 2013 Pneumococcal Vaccine : 65+ (1 - PCV) Pneumococcal Vaccine: 65+ (1 - PCV) [facility] Start: 2013 Pneumococcal Vaccine : 65+ (1 of 1 - PCV) Pneumococcal Vaccine: 65+ (1 of 1 - PCV) [facility] Start: 2013 Screening for osteoporosis Bone Dens ity Screening [facility] Start: 2008 RSV Vaccine (1 - 1-d ose 60+ series) RSV Vaccine (1 - 1-dose 60+ series) [facility] Start: 1998 Shingrix Vaccine (1 of 2) Abdi grix Vaccine (1 of 2) [facility] Start: 1993 Cologuard (FIT-DNA) Cologuard (FIT-D NA) [facility] Start: [address] Colonography [facility] Start: 1993 Diabetes Screening Diabetes Screenin g [facility] Start: 1993 Fecal Occult Blood Fecal Occult Bloo d [facility] Start: 1993 Lipid 1996 panel - S theresa or Plasma Lipid Screening [facility] Start: 1993 Lipid panel Lipid Screening [facility] Start: 1993 Screening for malign ant neoplasm of colon [facility] Start: 1993 Sigmoidoscopy Sigmoidoscopy [facility] Start: 1967 Pneumococcal Vaccine : 65+ Years (1 of 2 - PCV) Pneumococcal Vaccine: 65+ Years (1 of 2 - PCV) [facility] Start: 1966 Annual PCP Team Biosolids Management Technician luis Disease Visit Annual PCP Team Chronic Disease Visit [facility] Start: 1966 BP Controlled (<130/80) BP Controlle d (<130/80) [facility] Start: 1966 Depression Screening Depression Scre ening [facility] Start: 1966 Hepatitis C Screening Hepatitis C [facility] Start: 1966 Hepatitis C screening Hepatitis C [facility] Start: 1954 Pneumococcal Vaccine : 65+ Years (1 - PCV) Pneumococcal Vaccine: 65+ Years (1 - PCV) [facility] Start: 1954 Pneumococcal Vaccine : 65+ Years (1 of 2 - PCV) Pneumococcal Vaccine: 65+ Years (1 of 2 - PCV) [facility] Start: 1948 Covid-19 Vaccine (#1) Covid-19 Vacci ne (#1) [facility] Start: 1948 Screening for malign ant neoplasm of colon [facility] Cystourethroscopy CYSTO.PANENDO Procedures Routine Feeling [...] Work Phone: Comment on above: Ordered: 05/07/2024 [facility] Immunizations Immunization Date Immunization Notes Care Provider Fa [facility] 01-29-2018 tetanus toxoid, reduced diphtheria toxoid, and acellular pertussis vaccine, adsorbed Peggy Nazario MD Work Phone: [facility] 02-16-2016 tetanus and diphtheria toxoids, adsorbed, preservative free, for adult use (5 Lf of tetanus toxoid and 2 Lf of diphtheria toxoid) Peggy Nazario MD Work Phone: [facility] 12-14-2009 diphtheria, tetanus toxoids and pertussis vaccine Peggy Nazario MD Work Phone: [facility] 12-30-2004 diphtheria and tetanus toxoids, adsorbed for pediatric use Peggy Nazario MD Work Phone: [facility] NEGATED: Highlighted row has not occurred!07-20-2023 influenza virus vaccine, unspecified formulation Johan MARTINEZ [facility] Payers Date Payer Category Payer [facility] er [id number] 2016 Unknown [id number]. [id number] 2016 Unknown [id number] 2013 Medicare [id number] [id number]. [id number] 2013 Medicare [id number] 1948 Unknown [id number] 2.16.840.1.789931.3.579. 2.727 1948 Unknown [id number] 2.16.840.1.880242.3.579. 2.72 1948 Unknown [id number] 2.16.840.1.358072.3.579. 2.727 1948 Unknown [id number] 2.16840.1.996025.3.579. 2.72 1948 Unknown [id number] 2.16.840.1.159604.3.579. 2.727 1948 Unknown [id number] 2.16.840.1.010845.3.579. 2.72 1948 Unknown [id number] 2.16.840.1.949531.3.579. 2.727 1948 Unknown [id number] 2.16.840.1.418431.3.579. 2.727 1948 Unknown [id number] 2.16.840.1.861198.3.579. 2.727 1948 Unknown [id number] 2.16.840.1.561060.3.579. 2.727 1948 Unknown [id number] 2.16.840.1.067798.3.579. 2.727 1948 Unknown [id number] 2.16.840.1.250384.3.579. 2.72 1948 Unknown [id number] 2.16.840.1.051023.3.579. 2.727 1948 Unknown [id number] 2.16.840.1.672203.3.579. 2. 1948 Unknown [id number] 2.16.840.1.249394.3.579. 2.72 1948 Unknown [id number] 2.16.840.1.755516.3.579. 2.72 1948 Unknown [id number] 2.16.840.1.390752.3.579. 2.72 1948 Unknown [id number] 2.840.1.338542.3.579. 2.1258 1948 Unknown [id number] 2.840.1.316068.3.579. 2.1258 1948 Unknown [id number] 2.840.1.362879.3.579. 2.1258 1948 Unknown [id number] 2.840.1.664171.3.579. 2.1258 1948 Unknown [id number] 2.840.1.734374.3.579. 2.1258 1948 Unknown [id number] 2.840.1.163224.3.579. 2.1258 1948 Unknown [id number] 2.840.1.750025.3.579. 2.1258 1948 Unknown [id number] 2.840.1.742599.3.579. 2.125 1948 Unknown [id number] 2.840.1.179992.3.579. 2.125 1948 Unknown [id number] 2.840.1.607682.3.579. 2.125 1948 Unknown [id number] 2.840.1.298675.3.579. 2.1259 1948 Unknown [id number] 2.16.840.1.013124.3.579. 2.1259 1948 Unknown [id number] 2.16.840.1.858847.3.579. 2.1259 Social History Date Type Detail Facility Start: 02-23-2021 End: 04-12-2023 Tobacco smoking status Ex-smoker (finding) [facility] Comment on above: Denies Start: 07-08-2020 End: 11-25-2024 Sex Assigned At Female [facility] Tobacco smoking status Never [facility] Comment on above: Denies History of tobacco use Current smoker [facility] Start: 10-24-2017 End: 04-12-2023 Tobacco use and exposure Smokeless tobacco non-user [facility] Start: 10-24-2017 Alcohol intake Current drinke r of alcohol (finding) [facility] Start: 07-08-2020 End: 11-25-2024 History of Social function [facility] Start: 09-26-2012 End: 08-23-2023 Tobacco Comment Quit 1996. social smoker mostly [facility] Start: 1948 Sex Assigned At Not on [...] [facility] 11-22-2023 Functional Status N/A [facility] 10-05-2023 Functional Status N/A [facility] 09-17-2023 Functional Status N/A [facility] 09-12-2023 Functional Status N/A [facility] 07-21-2023 Functional Status No [facility] 07-20-2023 Functional Status No [facility] 07-07-2023 Functional Status N/A [facility] 07-03-2023 Functional Status N/A [facility] 07-02-2023 Functional Status [facility] 06-30-2023 Functional Status N/A [facility] 04-26-2023 Functional Status N/A [facility] 04-04-2023 Functional Status N/A [facility] 01-28-2023 Functional Status N/A [facility] 10-19-2022 Functional Status N/A [facility] 10-03-2022 Functional Status N/A [facility] 09-01-2022 Functional Status No [facility] 06-13-2022 Functional Status No [facility] 03-03-2022 Functional Status N/A [facility] 02-15-2022 Functional Status N/A [facility] Clinical Notes 12-24-2021 to 05-28-2025 Hannah Brian MD - 05/14/2025 11:40 AM Naveen Brian MD - 05/08/2025 2:20 PM Naveen Brian MD - 04/21/2025 3:00 PM EDTTelephone Encounter - Acacia Suarez - 04/19/2025 7:12 PM EDT Note Date & Type Note Facility 05-28-2025 Note 05/28/25 1442 Admission Assessment Questions Verify insurance with patient [...] Status Interested Does the patient have a case supervisor assigned to them through their insurance? No [...] link and activate MyChart? 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 [...] To reach the Clinical Dietitian, please utilize [facility] chat Monday-Monday from 8AM-4PM or call extension [phone]. For weekends (Monday-Monday) and holidays, the Clinical Dietitian can be reached via pager ([phone]) from 9AM-3PM. The Clinical Nutrition Department is un (more content not included)... [facility] 05-28-2025 Note Attestation signed by Gabe Martinez [...] Procedure Summary Date: 05/27/25 Room / Location: [facility] / [facility] (Cath) Anesthesia Start: 909 Anesthesia Stop: 132 Procedure: Transcatheter Duws-Ka-Oygx Repair (TriClip) Diagnosis: Chronic systolic heart failure [...] no known notable events for this encounter. [facility] 05-27-2025 Note Spiritual Care Note Patient name: Harjit Asencio Age: 75 y.o. Room: [facility]/NONE 05/27/25 1500 Clinical Encounter Type [...] in those relationships.) Pastoral Intervention Emotional support;Spiritual support;[place] (Provided caring listening presence and support.) Response Appreciative [facility] 05-27-2025 Note Error [facility] 05-27-2025 Note Airway Date/Time: 05/27/2025 9:23 AM Reason: elective General Information and Staff Patient location during procedure: OR Anesthesiologist: Tushar Hoover MD Resident/PLASTERER APPRENTICE/CAA: Roque Moser MD Performed: resident/PLASTERER APPRENTICE/CAA Patient Condition Indications for airway management: anesthesia [...] 1 Number of other approaches attempted: 0 [facility] 05-27-2025 Note Arterial Line: Date/Time: 05/27/2025 8:50 [...] one attempt on left wrist. Staffing Performed: resident/PLASTERER APPRENTICE/CAA and anesthesiologist Anesthesiologist: Tushar Hoover MD Resident/PLASTERER APPRENTICE: Johan Gill MD Other anesthesia staff: Roque Moser MD Performed by: Johan Gill MD Authorized by: Tushar Hoover MD [facility] 05-27-2025 Note Pt in pre-op bay 09. Pt displays understanding of instructions to remove all clothing and personal items. Pt informed anesthesia and physician will be at the bedside to discuss procedure prior to going back at scheduled procedure time. All questions answered at this time. [facility] 05-27-2025 Note Patient: Harjit Asencio Procedure Information Date/Time: 05/27/25829 Procedure: Transcatheter tricupsid valve repair - this is for Triclip, with diagnosis of severe tricuspid regurgitation Location: [facility] (Cath) Providers: Rafael Vega MD [...] with attending and resident. Additional Equipment Requests [facility] 05-19-2025 Note [place] Cardiology - [facility] Subjective Harjit Asencio is a [...] removed. Patient would like to go to [facility] for cardiac rehab. The blood thinner [...] At her recent visit with cardiology at [facility] on 09/26/2023 valsartan was stopped and low-dose lisinopril 5 mg once daily was added. The plan was to add Jardiance. There is note of her to being evaluated by CT surgery Dr. Sorto regarding candidacy for cardiac surgery and she was deemed high risk. She was also evaluated at [facility] cardiothoracic surgery. Initial workup for her mitral [...] She then und (more content not included)... [facility] 05-14-2025 History of Present illness Narrative Images [...] to monitor for. 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 Take rqkv-kai-xnoveiz and prescription medicines only as told by [...] people, if p (more content not included)... [facility] 04-24-2025 Note Progress Note - Steph [...] understanding and all other questions were answered. [facility] 04-24-2025 Note I sent you a letter via email. Let me know if you were able to print/send. Thanks! [facility] 04-21-2025 History of Present illness Narrative Images [...] Row Patient Outreach from 04/21/2025 in [facility] with Loida Nathan LPN Hospital Information ED, Hospital or Custodial Facility Discharge? ED Diagnosis Abd pain, diarrhea Discharge Date 04/19/25 Discharged To: Home Setting Discharge [facility] Engagement Admission Date 04/19/25 Medications Prescription [...] heart failure (HCC) Atrial fibrillation, persistent (HCC) longterm current use of anticoagulant Anxiety Reviewed ED course with pt including labs and imaging Discussed sx tx and concerning sx to monitor for. Encouraged follow up with specialists as discussed Follow up if symptoms worsen or fail to improve. documented in this encounter [facility] 04-19-2025 Telephone encounter Note Luis Brian MD Just talked to him. Thank you! [facility] 04-19-2025 Miscellaneous Notes Luis Brian MD Just talked to him. Thank you! Harjit Asencio is a 75 y.o. female . [facility] called because pt came in today with abdominal pain and diarrhea. DR Jayson Calloway is requesting consult with Dr Brian. Please call [phone] . documented in this encounter [facility] 04-19-2025 Note ED Patient Education Note [...] these instructions at home: Medicines ??? Take mtfx-equ-ogyegor and prescription medicines only as told by [...] provider. Document Revised: 05/17/2023 Document Reviewed: 05/17/2023 Share Practice Patient Education ? 2023 [employer]. [facility] 04-19-2025 Telephone encounter Note Harjit Asencio is a 75 y.o. female . [facility] called because pt came in today with abdominal pain and diarrhea. DR Jayson Calloway is requesting consult with Dr Brian. Please call [phone] . [facility] 04-07-2025 History of Present illness Narrative [...] - as above documented in this encounter [facility] 03-31-2025 Note [facility] Subjective Harjit Asencio is a [...] At her recent visit with cardiology at [facility] on 09/26/2023 valsartan was stopped and low-dose lisinopril 5 mg once daily was added. The plan was to add Jardiance. There is note of her to being evaluated by CT surgery Dr. Sorto regarding candidacy for cardiac surgery and she was deemed high risk. She was also evaluated at [facility] cardiothoracic surgery. Initial workup for her mitral valve disease was started. Spironolactone was changed to half tablet twice a day instead of 1 tablet once a day. She was also recommended to start taking digoxin at night instead of the morning. At visit with pr on 10/16/2023 I increased her carvedilol to [...] She has under (more content not included)... [facility] 02-10-2025 Note [facility] Subjective Harjit Asencio is a 74 y.o. year old female patient being seen for 30 day s/p MitraClip. Had echo 02/07/2025. C/o hematuria. 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 The plan was to add Jardiance. There is note of her to being evaluated by CT surgery Dr. Sorto regarding candidacy for cardiac surgery and she was deemed high risk. She was also evaluated at [facility] cardiothoracic surgery. Initial workup for her mitral [...] Patient Position: S (more content not included)... [facility] 01-23-2025 Note Patient is here toda y [...] a UTI. Review of Systems Constitutional: Negative. [facility] 01-23-2025 Note Cardiovascular Medic in[facility] SUBJECTIVE Chief Complaint Patient presents with [...] 45 tablet, Rfl: (more content not included)... 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 No changes in meds at this time Encouraged continued follow up with specialists Follow up if symptoms worsen or fail to improve. documented in this encounter [facility] 01-14-2025 Note Patient: Harjit Asencio Procedure Summary Date: 01/14/25 Room / Location: [facility] / [facility] (Cath) Anesthesia Start: 830 [...] no known notable events for this encounter. [facility] 01-14-2025 Note Patient intubated un bart observation by anesthesia [facility] 01-14-2025 Note Patient: Harjit Asencio Procedure Information Anesthesia Start Date/Time: 01/14/25830 Procedure: Transcatheter mitral valve repair - case for general anesthesia approved by Dr Callejas, NPCR Location: [facility] / [facility] (Cath) Providers: Rafael Vega MD [...] with attending and resident. Additional Equipment Requests [facility] 01-14-2025 Note Arterial Line: Date/Time: 01/14/2025 9:04 [...] no complications. Additional notes: [place] Staffing Performed: resident/PLASTERER APPRENTICE/CAA Anesthesiologist: Lobo Machado MD Resident/PLASTERER APPRENTICE: Margaret Briceno MD Performed by: Micheline Mendoza MD Authorized by: Lobo Machado MD [facility] 01-14-2025 Note Airway Date/Time: 01/14/2025 8:52 AM Urgency: elective Airway not difficult General Information and Staff Patient location during procedure: [place] Anesthesiologist: Lobo Machado MD Resident/PLASTERER APPRENTICE/CAA: Margaret Briceno MD Performed: resident/PLASTERER APPRENTICE/CAA Indications and Patient Condition Indications for airway [...] 1 Number of other approaches attempted: 0 [facility] 01-13-2025 Telephone encounter Note Rx sent, HR OOO. OARRS appropriate. [facility] 01-13-2025 Miscellaneous Notes Rx sent, HR OOO. OARRS appropriate. HR OOO Pt needs refill on Lorazapam sent to [facility]. documented in this encounter [facility] 01-13-2025 Telephone encounter Note HR OOO [facility] 01-13-2025 Telephone encounter Note Pt needs refill on Lorazapam sent to [facility]. [facility] 01-07-2025 History of Present illness Narrative [...] in regimen. Continue to follow w/ specialists longterm current use of anticoagulant - Continue to monitor for abnormal bruising or bleeding Primary hypertension (CMS/HCC) Stable, continue to monitor. No change in regimen. Anxiety Stable, continue to monitor. No change in regimen. Panic attack (CMS/HCC) Stable, continue to monitor. No change in regimen. documented in this encounter [facility] 12-25-2024 Note I have reviewed this patient's medical record, cardiac imaging. she has severe secondary (functional) mitral regurgitation, chronic heart failure with reduced ejection fraction and has persistent symptoms NYHA class III despite maximally tolerated guideline-directed medical therapy. I think that she is a good candidate for and would benefit from transcatheter sssq-qj-ityu repair. 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 The plan was to add Jardiance. There is note of her to being evaluated by CT surgery Dr. Sorto regarding candidacy for cardiac surgery and she was deemed high risk. She was also evaluated at [facility] cardiothoracic surgery. Initial workup for her mitral [...] and are negativ (more content not included)... [facility] 12-17-2024 History of Present illness Narrative Images [...] to monitor for. documented in this encounter [facility] 11-25-2024 History of Present illness Narrative [...] meds and concerning sx to monitor for. 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 No change in regimen. Continue to follow w/ specialists Primary hypertension (CMS/HCC) Stable, continue to monitor. No change in regimen. Continue to follow w/ specialists documented in this encounter [facility] 11-18-2024 History of Present illness Narrative [...] POCT Urinalysis dipstick - Urine culture; Future longterm current use of anticoagulant - continue to monitor for abnormal bruising/bleeding Atrial fibrillation, persistent (HCC) (CMS/HCC) Stable, continue to monitor. No change in regimen. Continue to follow w/ cardiology Primary hypertension (CMS/HCC) Stable, continue to monitor. No change in regimen. Continue to follow w/ cardiology documented in this encounter [facility] 10-22-2024 Note [place] Electrophysiology Consult Note [place] [facility] Reason for visit: Afib+ CMP 10/22/24 Patient underwent a CUSTOMER CARE CONSULTANT-P implant on 02/28/2024 when a CUSTOMER CARE CONSULTANT-P was placed in a submuscular fashion with [...] she has done very well since her CUSTOMER CARE CONSULTANT. Device check performed on 07/30/2024 shows patient being BiV paced 98% of the time 02/22/24 Pt here to discuss about CUSTOMER CARE CONSULTANT-P Prior HPI: Harjit Asencio is a 74 [...] MR and subsequently had a visit with [facility] where evaluation was being done for surgical correction of mitral valve but was noted to have high risk and hence deferred. She also had an evaluation for the same [place] and thereafter had seen in [...] Tobacco Use: Medium Risk (10/08/2024) Received from [facility] Patient History Smoking Tobacco Use: Former Smokeless Tobacco Use: Never Passive Exposure: Never Alcohol Use: Not At Risk (08/05/2024) Received from [facility] AUDIT-C Frequency of Alcohol Consumption: Never Average Number of Drinks: Patient does not drink Frequency of Binge Drinking: Never Financial Resource Strain: Not on file Food Insecurity: Not on file Transportation Needs: Not on file Physical Activity: Not on file Stress: Not on file Social Connections: Not on file Intimate Partner Violence: Unknown (10/05/2023) [place] Safety & Environment Fear of Current or Ex-Partner: Not on file Emotionally Abused: Not on file Physically Abused: Not on file Sexually Abused: Not on file Physically or Sexually Abused: Not on file Depression: Not at risk (08/05/2024) Received from [facility] PHQ-2 Patient Health Questionnaire-2 Score: 0 [...] 3 LORazepam (Ativan) (more content not included)... [facility] 10-08-2024 History of Present illness Narrative Associated [...] carvedilol dosage, which was prescribed by her manager enrollment. She has been experiencing shortness of breath, [...] and plans to discuss this with her manager enrollment during her upcoming appointment. She has been [...] and plans to discuss this with her manager enrollment during her upcoming appointment. She has been [...] and plans to discuss this with her manager enrollment during her upcoming appointment. She has been [...] dosage of carvedilol was increased by her manager enrollment. Symptoms include shortness of breath, irregular heart rhythm, and night terrors. Her blood pressure is currently stable. She is advised to discuss these symptoms with her manager enrollment during her upcoming appointment next month. 2. [...] for this patient. documented in this encounter [facility] 09-20-2024 Telephone encounter Note Pt needs a refill on Ativan [facility] 09-20-2024 Miscellaneous Notes Pt needs a refill on Ativan [facility] documented in this encounter [facility] 08-12-2024 History of Present illness Narrative [...] Negative - 160(16) ++++ mg/dL Negative Specific [place], UA 1 - 1.03 1.005 Blood, UA [...] persistent (HCC) (CMS/HCC) Continue current medication regimen. 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 documented in this encounter [facility] 08-05-2024 History of Present illness Narrative Images from the original note were not included. Stephan Boo, DO Obstetrics and Gynecology Harjit Asencio 1950 08/05/24 [id number] Yearly Wellness Exam Chief Complaint Patient presents with Gynecologic Exam Medicare off year. LMP: MIR BS 1983 HRT: None Last pap 07-24-23 neg. Last mammogram 12-05-22 [facility]. Not sure when she can do it [...] 02/28/2024 implantation of biventricular ICD submuscular implant [place] TOTAL ABDOM HYSTERECTOMY 1983 MIR BS REFRACTIVE [...] angle tenderness, no obvious scoliosis/kyphosis. 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 documented in this encounter [facility] 07-02-2024 Note Patient here for [...] All other systems reviewed and are negative. [facility] 07-02-[address] 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 Paroxysmal atrial fibrillation ([facility]/HCC) Presence of biventricular automatic cardioverter/defibrillator (AICD) Past Medical History: Diagnosis Date Abnormal ECG Arrhythmia Atrial fibrillation ([facility]/HCC) CHF (congestive heart failure) ([facility]) Heart murmur Heart valve disease Hypertension Nonischemic cardiomyopathy ([facility]) Family History Problem Relation Name Age of [...] and regular rhythm. (more content not included)... [facility] 07-01-2024 History of Present illness Narrative Images [...] eat. She has an appointment with a planetarium sky show technician tomorrow. She has been taking spironolactone, [...] research. She will follow up with the planetarium sky show technician and nurse practitioner tomorrow to check [...] for this patient. documented in this encounter [facility] 06-27-[address] [facility] 06-27-2024 History of Present illness Narrative [...] for Female Urology and Reconstructive Pelvic Surgery/Urology [facility] Bulmaro aleman Krista documented in this encounter [facility] 06-27-2024 Nurse Note PROCEDURE NURSE ASSESSMENT Patient [...] patient verbalizes understanding: yes Clarice Gardiner MA [facility] 06-27-2024 Instructions Clarice Gardiner MA - 06/27/2024 10:59 AM EST THE [facility] DR. RAPHAEL GOLDSMITH AFTER YOUR [...] office: Dr. Raphael Goldsmith M.D., Office PH#: [phone] After 5 pm and on weekends: Call [phone] and ask for the urologist integration developer. The doctor will need to know that you have had a cystoscopy and what symptoms you are having. documented in this encounter [facility] 06-27-2024 Nurse Note PROCEDURE NURSE ASSESSMENT Patient [...] with drinking extra fluids. Please call the [place] office at [phone], Monday-Monday, 8 am - 5 pm, with any questions you may have. Please ask to be transferred to the Urology nurses in the back office area. If you call after 5 PM or on the weekends, please call [phone], ask for the Urologist integration developer. Thank You, Your Urology Team documented in this encounter [facility] 06-27-2024 Nurse Note POST INSTRUCTIONS Cystoscopy Procedure [...] with drinking extra fluids. Please call the [place] office at [phone], Monday-Monday, 8 am - 5 pm, with any questions you may have. Please ask to be transferred to the Urology nurses in the back office area. If you call after 5 PM or on the weekends, please call [phone], ask for the Urologist integration developer. Thank You, Your Urology Team [facility] 06-10-2024 Note AV NODE ABLATION PRO CEDURE [...] MR and subsequently had a visit with [facility] where evaluation was being done for surgical correction of mitral valve but was noted to have high risk and hence deferred. She also had an evaluation for the same at [facility] surgery and thereafter had seen in follow-up [...] poor candidate for Afib ablation, she underwent CUSTOMER CARE CONSULTANT-P on 02/28/24. She is here for AVN [...] Continue anticoagulation. Patty Yao MD Cardiac Electrophysiology. [facility] 06-10-2024 Note Patient: Harjit Asencio Procedure Information Date/Time: 06/10/24 1200 Procedure: AV node ablation - PC APPROVED Location: [facility] EP / [facility] (Cath) Providers: Patty Yao MD Clinical information reviewed: Allergies Meds OB Status Physical Exam Airway Mallampati: II TM distance: >3 FB Cardiovascular Dental Pulmonary Abdominal Anesthesia Plan ASA 3 CSE Anesthetic plan and risks discussed with patient. Use of blood products discussed with patient who. Additional Equipment Requests [facility] 05-07-[address] [facility] 05-07-2024 History of Present illness Narrative [facility] [...] repeat urethral dilation in 2-3 months at [place] in office -Plan to assess for atrophic vaginitis at time of urethral dilation due to patient concern for irritation around upper thigh/vagina Erika Ho MD I have personally performed a face to face diagnostic evaluation on this patient. My findings are as above. Raphael Goldsmith MD plan urethral dil per req documented in this encounter [facility] 05-07-2024 Nurse Note Post Void Residual done on patient with 0 cc residual volume remaining. MD notified. CARISSA Garvey [facility] 05-07-2024 Nurse Note Post Void Residual done on patient with 0 cc residual volume remaining. notified. CARISSA Garvey documented in this encounter [facility] 12-22-2023 Telephone encounter Note The following approved medication requests have been transmitted electronically. Requested Prescriptions Signed Prescriptions Disp Refills lisinopril (ZESTRIL) 10 mg tablet 45 tablet 0 Sig: take 1/2 tablet by mouth once daily Authorizing Provider: Benitez SAMUELS pantoprazole DR (PROTONIX) 40 mg tablet 90 tablet 0 Sig: take 1 tablet by mouth every day Authorizing Provider: Benitez SAMUELS APRN.STATOR WINDER [facility] 12-22-2023 Miscellaneous Notes The following approved medication requests have been transmitted electronically. Requested Prescriptions Signed Prescriptions Disp Refills lisinopril (ZESTRIL) 10 mg tablet 45 tablet 0 Sig: take 1/2 tablet by mouth once daily Authorizing Provider: Benitez SAMUELS pantoprazole DR (PROTONIX) 40 mg tablet 90 tablet 0 Sig: take 1 tablet by mouth every day Authorizing Provider: Benitez SAMUELS APRN.STATOR WINDER documented in this encounter [facility] 11-22-2023 Hospital Discharge instructions Patient Education 11/22/2023 20:40:30 Constipation, Adult, Quus-ae-Jien Constipation, Adult Constipation is when a person [...] high in fat and sugar, such as: ?Vincentian fries. ?Hamburgers. ?Cookies. ?Candy. ?Soda. Drink enough fluid to keep your pee (urine) pale yellow. General instructions Exercise regularly or as told by your doctor. Try to do 150 minutes of exercise each week. Go to the restroom when you feel like you need to poop. Do not hold it in. Take nxew-wpc-xghznkz and prescription medicines only as told by [...] keep your pee (urine) pale yellow. Take sbnu-hbj-ssszakv and prescription medicines only as told by your doctor. These include any fiber supplements. This information is not intended to replace advice given to you by your health care provider. Make sure you discuss any questions you have with your health care provider. Document Revised: 06/17/2020 Document Reviewed: 06/17/2020 Share Practice Patient Education 2022 [employer]. Follow Up Care 11/22/2023 16:18:30 With:Hannah Brian MD Address: [address] [place] [address]- When:11/25/2023 [facility] 10-16-2023 Miscellaneous Notes October 16, 2023 Patient Contact Number: [phone] Patient last seen within the last year: [...] Yes Gloria Mendes documented in this encounter [facility] 10-16-[address] [facility] 10-16-2023 History of Present illness Narrative [...] due to it helping the symptoms [facility] NOTE / UNIVERSAL PROTOCOL / SAFETY [...] Time: 11:18 AM documented in this encounter [facility] 10-16-[address] [facility] 10-16-2023 Nurse Note Actual procedure/procedure scheduled: Yes Performing provider/scheduled provider: Yes [id number] Life Skills Instructor offered:Patient declines Patient arrived in the room [...] Education Session: None Instruction Provided To: Patient Senior Landscape Architect Present: no Discipline: Nursing Learning Topic: SURVIVAL SKILLS: Symptom Management Patient Evaluation: Verbalizes understanding: Yes Supplemental Material Given: Written Material Instructed By DAWSON Farr In Department Urology . documented in this encounter [facility] 10-05-2023 Hospital Discharge instructions Patient Education 10/05/2023 21:56:35 Constipation, Adult, Vxlv-kw-Cszc Constipation, Adult Constipation is when a person [...] high in fat and sugar, such as: ?Vincentian fries. ?Hamburgers. ?Cookies. ?Candy. ?Soda. Drink enough fluid to keep your pee (urine) pale yellow. General instructions Exercise regularly or as told by your doctor. Try to do 150 minutes of exercise each week. Go to the restroom when you feel like you need to poop. Do not hold it in. Take erqg-dbn-gsawvym and prescription medicines only as told by [...] keep your pee (urine) pale yellow. Take qayj-bwq-hdlgefs and prescription medicines only as told by your doctor. These include any fiber supplements. This information is not intended to replace advice given to you by your health care provider. Make sure you discuss any questions you have with your health care provider. Document Revised: 06/17/2020 Document Reviewed: 06/17/2020 Share Practice Patient Education 2022 Casualing. 10/05/2023 21:56:35 Gastroesophageal Reflux Disease, Adult, Opqb-dj-Twhl Gastroesophageal Reflux Disease, Adult Gastroesophageal reflux (ZUNILDA) [...] powder, vinegar, hot sauces, and BBQ sauce. ?Marquette fruit juices and citrus fruits, such as oranges, ronald, and limes. ?Tomato-based foods. These include red sauce, chili, salsa, and pizza with red sauce. ?Fried and fatty foods. These include donuts, cuban fries, potato chips, and high-fat dressings. ?High-fat [...] to any changes in your symptoms. Take tzhe-nxu-qeaoggp and prescription medicines only as told by [...] provider. Document Revised: 02/08/2021 Document Reviewed: 02/08/2021 Share Practice Patient Education 2022 [employer]ing. 10/05/2023 21:56:35 Abdominal Pain, Adult, Eylz-qg-Jhad Abdominal Pain, Adult Many things can cause belly (abdominal) pain. Most times, belly pain is not dangerous. Many cases of belly pain can be watched and treated at home. Sometimes, though, belly pain is serious. Your doctor will try to find the cause of your belly pain. Follow these instructions at home: Medicines Take ycpy-qqf-jwymaiq and prescription medicines only as told by [...] your belly pain for any changes. Take ehho-jdo-wxrkqoc and prescription medicines only as told by [...] provider. Document Revised: 12/09/2019 Document Reviewed: 12/09/2019 Share Practice Patient Education 2022 Casualing. Follow Up Care 10/05/2023 17:56:41 With:Johan HENRIQUEZ Address: [address] [place] [address]- [phone] Business (1) When:10/08/2023 20:57:11 With:Peggy Nazario Address: [address] [place] [address]- Business (1) When:Within 3 Day(s) [facility] 10-05-2023 Evaluation + Plan note Extrac [...] day(s), # 28 tab(s), Refills(s) 0, Pharmacy: [facility], 165, cm, 10/05/23 18:07:00 EST, Height/Length Dosing, 50.3, kg, 10/05/23 18:07:00 EST, Weight Dosing lidocaine topical, 200 mg, 10 mL, Soln-Oral, Oral, Once, Stop date 10/05/23 20:48:00 EST, STAT, Start date 10/05/23 20:48:00 EST ECG 12 Lead Adult Future Appointments Appointment Date:01/24/2024 02:30:00 PM Scheduled Provider:Micheline BROOKS MD Location:[facility] Appointment Type:URO Office Visit Future Scheduled Tests Laboratory* Basic Metabolic Panel 07/12/23 * Digoxin Level 07/12/23 [facility]02-19-2024 Miscellaneous Notes* Telephone Encounter - Gloria Mendes - 10/02/2023 9:35 AM EST October 02, 2023 Patient Contact Number: [phone] Patient last seen within the last year: Yes Date of last office visit: 09/26/2023 Reason For Call: Test Results; pt requesting to go over 09/26 labs Physician: Alea Harley MD Patient was informed that non-urgent calls may be returned within the next three business days. Yes Gloria Mendes documented in this encounter[facility] Nurse Note* Chrissy Roberts OCCA - 09/26/2023 2:28 PM EST Post Void Residual done on patient with 45 cc residual volume remaining. notified. CARISSA Ferrell documented in this encounterSelect [facility] [place]02-13-[address] [facility] History of Present illness Narrative* Raphael Goldsmith MD - 09/26/2023 2:15 PM EST [facility] [...] Medicine and Reconstructive Surgery documented in this encounterSelect [facility] [place]02-13-2024 Instructions* Patient Instructions* Ana Rivas APRN.CNP - [...] with labs and EKG -Follow up with TALBI Davidson in 4 weeks with labs and EKG -Follow up with Dr. Harley in 6 weeks with labs and EKG documented in this encounterSelect [facility] [place]02-13-[address] [facility] History of Present illness Narrative* Ana Rivas APRN.STATOR WINDER - 09/26/2023 8:51 AM EST Images from the original note were not included. [facility] Department of Cardiovascular Medicine SECTION OF CLINICAL CARDIOLOGY OUTPATIENT VISIT DATE September 26, 2023 OUTPATIENT VISIT TYPE ESTABLISHED PRIMARY CARE PHYSICIAN: Peggy Nazario MD [address] [place] [address] REFERRING PHYSICIAN: Dr. Alea Harley [address] [facility] [address] CHIEF COMPLAINT: Established Patient HISTORY OF PRESENT [...] ECG Confirmed by fellow NANCY MCMAHON, ZIGGY ([id number]) on 09/04/2023 1:50:09 PM Confirmed by MD DEJUAN, PhD, KHUSHI ([id number]) on 09/11/2023 1:23:[address] Result Conclusion CTA CHEST (GATED) W IVCON Exam End: 08/23/2023 7:47 AM (Final result) Impression: IMPRESSION: Dilated left ventricle, biatrial enlargement. Mitral valve is noncalcified. Normal caliber thoracic aorta. Analytical Chemist: [facility] Transcribe Date/Time: Aug 23 2023 11:20A [...] a plan of care. documented in this encounterSelect [facility] [place]02-[facility]-2024 Miscellaneous Notes* Telephone Encounter - Carmina Reyna RN - 09/21/2023 4:[address] Harley would like patient to come in and be seen to go over this in greater detail. Work on setting her up with an CABLE SPLICER HELPER and Dr. Harley would like to be in for the appointment. Next Monday. Carmina Reyna RN * Telephone Encounter - Gloria Mendes - 09/21/2023 3:33 PM EST September 21, 2023 Patient Contact Number: [phone] Patient last seen within the last year: [...] days. Yes Gloria Mendes documented in this encounterSelect [facility] [place]-2024 History of Present illness Narrative* Farrukh Mcmahan [...] Flowsheet Row Patient Outreach from 09/18/2023 in [facility] [employer] with Loida Nathan LPN Discharge Information ED or Hospital Discharge? ED Patient has been contacted within 1 week of being seen in the ED Yes Discharge Date 09/17/23 Discharge Hospital [facility] [DX: ACid reflux, Medication reaction] Discharged To: [...] Time 1006 No follow-ups on file. * Lai Shields - 09/18/2023 6:00 PM EST Harjit Asencio is a 73 y.o. female presents today for ER follow up. HPI: Pt here today for ER follow up. Pt seen at [facility] ER on 09/17/23 due to dizziness and shaking. Hospitalrecords were reviewed. Pt had an elevated BP. She believes the dizziness and shaking was caused by the valsartan. She had the same issues when she was on it before, was advised to cut it in half. Shestates she has been feeling better since she stopped it. Pt would like a referral to a new manager enrollment/surgeon. She states she has been told that [...] be referred to a cardiothoracic surgeon at [facility]. Discussed some risks of surgery. - Ambulatory referral to Cardiothoracic Surgery; Future Entered by _El_, acting as scribe for Dr. Lr_. Signature _Heath MCMAHON_ Date _09/18/2023_. The documentation recorded by the scribe accurately reflects the service(s) I personally performed and the decisions I made. documented in this encounterMissouri Baptist Medical CenterAzxfecytsq05-60-8866 Evaluation + Plan note Extracted from: Title:ED [...] Date:01/24/2024 02:30:00 PM Scheduled Provider:Micheline BROOKS MD Location:[facility] Appointment Type:URO Office Visit Future Scheduled Tests Laboratory* Basic Metabolic Panel 07/12/23 * Digoxin Level 07/12/23 [facility]02-04-2024 Hospital Discharge instructions Patient Education 09/17/2023 [...] medicines that you are allergic to. Take caiy-qbx-qhjlbtq and prescription medicines only as told by your health care provider. If you were given medicines to treat your allergic reaction, do not drive until your health care provider tells you it is safe. If you have hives or a rash: ?Use an eoyn-crk-xjzsqkw antihistamine as told by your health care [...] provider. Document Revised: 01/10/2022 Document Reviewed: 01/10/2022 Share Practice Patient Education 2022 [employer]ing. 09/17/2023 06:16:25 Heartburn Heartburn Heartburn is a [...] powder, vinegar, hot sauces, and barbecue sauce. ?Marquette fruit juices and citrus fruits, such as oranges, ronald, and limes. ?Tomato-based foods, such as red sauce, chili, salsa, and pizza with red sauce. ?Fried and fatty foods, such as donuts, cuban fries, potato chips, and high-fat dressings. ?High-fat [...] ask your health care provider. Medicines Take zhfj-cwb-zsydhrz and prescription medicines only as told by [...] told by your health care provider. Take lhra-jka-yledpax and prescription medicines only as told by [...] provider. Document Revised: 02/03/2021 Document Reviewed: 02/03/2021 Share Practice Patient Education 2022 Casualing. Follow Up Care 09/17/2023 04:56:21 With:Peggy Nazario Address: [address] [place] [address] [facility] (1) When:Within 3 Day(s) [facility]02-04-2024 Miscellaneous Notes* Telephone Encounter - Carmina [...] (valsartan) again. Carmina Mcmahan APRN.CNP [facility] SOULEYMAN[facility] Firmware Manager 09/17/2023 6:29 AM documented in this encounterSelect Medical [facility] [place]02-04-2024 Miscellaneous Notes* Telephone Encounter - Carmina Mcmahan APRN.CNP - 09/17/2023 4:21 AM EST [facility] Center Inbound Phone Encounter DATE of SERVICE: 09/17/2023 TIME of SERVICE: 4:21 AM Status: Urgent Service/Provider: Clinical Cardiology Alea Harley MD Reason for call: Medication Issue/Question Contact information: [phone] Resolution: Reinforced education and Sent to [employer] Comments: Patient calling after waking up with [...] to try. Carmina Mcmahan APRN.TALIB [employer] SOULEYMANE Firmware Manager Date of Resolution: 09/17/2023 Time of Resolution 4:21 AM documented in this encounterSelect Medical [facility] [place]02-02-2024 Telephone encounter Note * Telephone Encounter - Rupal Lemus - 09/15/2023 1:24 PM EST Pt calls to check status of this, wants this done as quickly as possible, states that she will haveto cut pills in half to make it through the weekend and missed one last night. [facility] [id number] Miscellaneous Notes* Telephone Encounter - Rupal Lemus [...] out completely on monday documented in this encounterMissouri Baptist Medical CenterOllughpfco22-62-7611 Telephone encounter Note* Telephone Encounter - Candis Amaro - 09/15/2023 9:49 AM EST Pt calls to [facility] [id number] Telephone encounter Note* Telephone Encounter - Candiscatrachita Amaro - 09/13/2023 11:25 AM EST Pt [facility] LouisKjwhrmoncv30-43-8249 Telephone encounter Note* Telephone Encounter - Farrukh Mcmahan MA - 09/13/2023 11:06 AM EST Rx signed yesterday [facility] LouisWftvxmzehn78-06-0828 Telephone encounter Note* Telephone Encounter - Candis Amaro - 09/13/2023 11:01 AM EST Pt calls for refill of lorazepam is almost out will be out completely on monday [facility] LouisWkmehyoedn60-09-5520 Evaluation + Plan noteExtracted from: Title:ED Note [...] Date:01/24/2024 02:30:00 PM Scheduled Provider:Micheline BROOKS MD Location:[facility] Appointment Type:URO Office Visit Future Scheduled Tests Laboratory* Basic Metabolic Panel 07/12/23 * Digoxin Level 07/12/23 [facility]01-30-2024 Hospital Discharge instructions Patient Education 09/12/2023 [...] as meditation or yoga. General instructions Take nxae-mci-gmsilix and prescription medicines only as told by [...] provider. Document Revised: 05/20/2022 Document Reviewed: 05/20/2022 Share Practice Patient Education 2022 [employer]. 09/12/2023 06:47:40 Gastroesophageal Reflux Disease, Adult Gastroesophageal [...] powder, vinegar, hot sauces, and barbecue sauce. ?Marquette fruit juices and citrus fruits, such as oranges, ronald, and limes. ?Tomato-based foods, such as red sauce, chili, salsa, and pizza with red sauce. ?Fried and fatty foods, such as donuts, cuban fries, potato chips, and high-fat dressings. ?High-fat [...] to any changes in your symptoms. Take ujfz-zsw-cdzhfcs and prescription medicines only as told by [...] you have new or worsening symptoms. Take rdet-mqj-yzbsqky and prescription medicines only as told by [...] provider. Document Revised: 02/08/2021 Document Reviewed: 02/08/2021 Share Practice Patient Education 2022 [employer]ing. Follow Up Care 09/12/2023 04:04:55 With:Peggy Nazario Address: [address] [place] [phone]- Business (1) When:Within 3 Day(s) [facility]01-18-[address] [facility] 08-30-[facility] [facility] [facility] 08-27-[address] [facility] History of Past illness Narrative* Problem Noted Date Diagnosed Date Resolved Date Acute on chronic systolic co ngestive heart failure 08/26/2023 08/27/2023 documented as of this encounter (statuses as of 09/17/2023) [facility] History of Past illness Narrative* Problem Noted Date Diagnosed Date Resolved Date Acute on chronic systolic co ngestive heart failure 08/26/2023 08/27/2023 documented as of this encounter (statuses as of 09/21/2023) [address]13-2024 History of Past illness Narrative* Problem Noted Date Diagnosed Date Resolved Date Acute on chronic systolic co ngestive heart failure 08/26/2023 08/27/2023 documented as of this encounter (statuses as of 09/26/2023) [facility] History of Past illness Narrative* Problem Noted Date Diagnosed Date Resolved Date Acute on chronic systolic co ngestive heart failure 08/26/2023 08/27/2023 documented as of this encounter (statuses as of 09/26/2023) [facility] History of Past illness Narrative* Problem Noted Date Diagnosed Date Resolved Date Acute on chronic systolic co ngestive heart failure 08/26/2023 08/27/2023 documented as of this encounter (statuses as of 09/29/2023) [facility] History of Past illness Narrative* Problem Noted Date Diagnosed Date Resolved Date Acute on chronic systolic co ngestive heart failure 08/26/2023 08/27/2023 documented as of this encounter (statuses as of 10/02/2023) [facility] History of Past illness Narrative* Problem Noted Date Diagnosed Date Resolved Date Acute on chronic systolic co ngestive heart failure 08/26/2023 08/27/2023 documented as of this encounter (statuses as of 10/16/2023) [facility] History of Past illness Narrative* Problem Noted Date Diagnosed Date Resolved Date Acute on chronic systolic co ngestive heart failure 08/26/2023 08/27/2023 documented as of this encounter (statuses as of 10/17/2023) [facility] History of Past illness Narrative* Problem Noted Date Diagnosed Date Resolved Date Acute on chronic systolic co ngestive heart failure 08/26/2023 08/27/2023 documented as of this encounter (statuses as of 10/20/2023) [facility]01-13-2024 NoteHNO ID: [id number] Author: NOTE, INTERFACE, ? Service: ? Author Type: ? Type: Progress Notes Filed: 08/26/2023 02:15 Note Text: Epic Scheduled Downtime: 08/26/2023 1:00:00 AM to 08/26/2023 2:04:22 [facility]01-11-20[facility] [facility]12[facility]29-2023 NoteProcedure The risk/benefits of the procedure [...] Education Routine Capillary Glucose POC Saline Lock [facility] HospitalComment on above:Result Comment: Electronically Signed By: MARTINEZ MCMAHON, Johan Ribeiro.zak\Date and Time Signed: 07/05/23 06:48 [id number] History of Present illness Narrative* Farrukh McmahanJOSUE - 08/11/2023 8:45 AM EST Harjit Asencio is a 73 y.o. female presents today to follow up on anxiety. HPI: Pt here today for follow up on anxiety. Pt states yesterday she had a panic attack. She received a bill from [facility] that made her very upset and she had a panic attack. She felt like she couldn't catchher breath the rest of the day. Pt is currently on holter monitor. Pt has instructions from [facility] that she is confused about and would [...] Chronic fatigue syndrome Discussed. documented in this encounterMissouri Baptist Medical CenterNjhbrductb07-81-2928 Miscellaneous Notes* Telephone Encounter - Rebecca Fernandez - 07/24/2023 10:22 AM EST IN * Telephone Encounter - Katie Nicholson - 07/24/2023 10:08 AM EST Please register insurance Thank you! documented in this encounterSelect Medical [facility]ty [facility]12-11-2023 Note [id number] [facility]-21-20[facility] Evaluation + Plan noteExtracted from: Title:Procedure Note Heart & Vascular Author:LEYDA KELLER MD, Johan Patino Date:07/21/23 Ordered: benzocaine/butamben/tetracaine topical, 3 spray(s), Ingram-Top, Topical, q2min PRN Other (see comment), Routine, [...] Oxygen Therapy Saline Lock Insert Suctioning HAROON ([facility]) Vital Signs Future Appointments Appointment Date:01/24/2024 02:30:00 PM Scheduled Provider:Micheline BROOKS MD Location:[facility] Appointment Type:URO Office Visit Future Scheduled Tests Laboratory* Basic Metabolic Panel 07/12/23 * Digoxin Level 07/12/23 [facility]12-08-2023 Hospital Discharge instructions Patient Education 07/21/2023 08:44:29 CV - Post-Transesophageal Echocardiogram (Custom) [place], [place] POST-TRANSESOPHAGEAL ECHOCARDIOGRAM AFTER THE PROCEDURE: Diet: [...] appointment Seek Medical Care if: Notify your manager enrollment should you have any difficulty swallowing or coughing up blood. In the event you are unable to reach your manager enrollment, please call [facility] at [phone] and the holiday detector operator will assist you. Follow Up Care 07/20/2023 11:03:45 With:Johan HENRIQUEZ Address: [address] [place] [phone] Business (1) When: Unknown Comments:-After your appointment with [facility]12-08-2023 NoteProcedure The risk/benefits of the [...] plan_ Assessment/Plan Ordered: benzocaine/butamben/tetracaine topical, 3 spray(s), Ingram-Top, Topical, q2min PRN Other (see comment), Routine, [...] Oxygen Therapy Saline Lock Insert Suctioning HAROON ([facility]) Vital SignsAdams County HospitalComment on above:Result Comment: Electronically Signed By: MARTINEZ MCMAHON, Johan Ribeiro.br\Date and Time Signed: 07/21/23 07:09 [id number] Evaluation + Plan note Future Appointments Appointment Date:07/21/2023 08:00:00 AM Scheduled Provider: [facility] Type:CV CU () Appointment Date:07/21/2023 08:00:00 AM Scheduled Provider: [facility] Appointment Type:CV Echo () Appointment Date:01/24/2024 02:30:00 PM Scheduled Provider:Micheline BROOKS MD Location:[facility] Appointment Type:URO Office Visit Future Scheduled Tests Laboratory* Basic Metabolic Panel 07/12/23 * Digoxin Level 07/12/23 Radiology* Echo Transesophageal 2D 07/21/23 [facility]11-29-2023 Evaluation + Plan note Future Scheduled Tests Laboratory* Basic Metabolic Panel 07/12/23 * Digoxin Level 07/12/23 [facility] [id number] Hospital Discharge instructions Patient Education 07/07/2023 13:04:14 [...] health careprovider. Avoid caffeine, alcohol, and certain sfhs-nsl-zvllwqx cold medicines. These may make you feel worse. Ask your pharmacist which medicines to avoid. General instructions Take ogrh-pen-aefzxcn and prescription medicines only as told by [...] Depression Association of [place] (ADAA): www.adaa.org National [place] on Mental Illness (TAYLOR): www.taylor.org Contact a [...] department or: Call your local emergency services (793 in the [place] Call a suicide crisis helpline, such as the National Suicide Prevention Lifeline at or 631 in the [place] This is open 24 hours a day in the [place] Text the Crisis Text Line at 943907 (in the [place] Summary Taking steps to [...] provider. Document Revised: 02/23/2022 Document Reviewed: 11/21/2021 Share Practice Patient Education 2022 [employer]. 07/07/2023 13:04:14 Atrial Fibrillation Atrial Fibrillation [...] electrical signals of the heart. An ambulatory lunchroom monitor to record your heart's activity for [...] provider. Document Revised: 01/22/2020 Document Reviewed: 01/22/2020 Share Practice Patient Education 2022 [employer]. Follow Up Care 07/07/2023 08:56:48 With:Johan HENRIQUEZ Address: [address] [place] [address]- [phone] Business (1) When:07/10/2023 12:45:48 With:Peggy Nazario Address: [address] [place] [address]- Business (1) When:07/10/2023 12:45:46 [facility]11-24-2023 NoteAdmission and Discharge Information Admitting Physician - Noman PATTON DO Consulting Physician - Shell MCMAHON, Eb Mcmillan. [facility] Cardio, XXXX Admitting Diagnoses: Discharge Diagnoses 1. [...] of breath. She was subsequently admitted to [facility] with acute paroxysmal atrial fibrillation with rapid ventricular response?new onset, acute systolic congestive heart failure, elevated troponin, severe mitral regurgitation and tricuspid regurgitation, mild coronary artery disease. She was seen in consultation by the manager enrollment and underwent cardiac catheterization and echo cardiogram. [...] is for patient to follow-up with a manager enrollment as well as the urologist as outpatient. She may need valvular repair or replacement after follow-up with the manager enrollment and may also require HAROON as per the manager enrollment. Discharge time: 35 minutes. I spent 35 [...] 76.7 % Lymph Auto - 15.3 % [place] Auto - 7.7 % Eos Auto - 0.0 % Basophil Auto - 0.3 % Neutro Absolute - 4.7 E9/L Lymph Absolute - 0.9 E9/L [place] Absolute - 0.5 E9/L Eos Absolute - [...] - 79 mg/dL POC Device SN - [id number] POC User ID - [id number] POC Username - NIKHIL PAULSON CBC w/ [...] HDL - 43 mg/dL (more content not included)...[facility] HospitalComment on above:Result Comment: Electronically Signed By: Nahid SERRATO MD\.br\Date and Time Signed: 07/07/23 12:07 [id number] Evaluation + Plan noteExtracted from: Title:APSO Note Author:Nahid SERRATO MD Date:09/05/22 73-year-old female with history of ureteral stricture with previous dilations, anxiety disorder presented with complaints of urinary hesitancy, constipation, cough and shortness of breath and was admitted to [facility] with acute paroxysmal atrial fibrillation with [...] IV Cardizem drip. Continue on Coreg, digoxin. Command Center Officer debating on starting patient on amiodarone. Eliquis to start in 4 days after cardiac catheterization. Ordered: [facility] Hospital Care/Day Moderate 35 Minutes 19491 2. Acute systolic congestive heart failure (I50.21: Acute systolic (congestive) heart failure) Acute systolic congestive heart failure present on admission. Seen by manager enrollment and underwent cardiac catheterization that showed mild coronary artery disease. Also shows severe mitral regurgitation and tricuspid regurgitation with ejection fraction of 30 to 35%. Continue on aspirin, Coreg, losartan and Lasix. Ordered: [facility] Hospital Care/Day Moderate 35 Minutes 61244 3. Severe mitral regurgitation (I34.0: Nonrheumatic mitral (valve) insufficiency) As seen on cardiac catheterization. Patient will follow-up with manager enrollment for HAROON and then valvular repair. Command Center Officer also considering transferring patient to or [facility]. Ordered: [facility] Hospital Care/Day Moderate 35 Minutes 42781 4. Elevated troponin (R79.89: Other specified abnormal findings of blood chemistry) Secondary to type II non-ST segment elevation myocardial infarction from above and mild coronary artery disease.. Seen by manager enrollment and underwent cardiac catheterization that showed mild coronary artery disease. Continue on aspirin, Lipitor, and Coreg. Ordered: S[facility] Hospital Care/Day Moderate 35 Minutes 83044 5. Mild coronary artery disease (I25.10: Atherosclerotic heart disease of [place] coronary artery without angina pectoris) As seen on cardiac catheterization on 07/05/2023. Continue on Lipitor and aspirin. Ordered: Sbsq Hospital Care/Day Moderate 35 Minutes 22763 6. anxiety (F41.9: Anxiety disorder, unspecified) Increase [...] deep vein thrombosis (DVT) prophylaxis (Z79.899: Other emt intermediate (current) drug therapy) SCDs. Eliquis to resume in 4 days. Disposition: Home soon today if heart rate is under good control with plans to follow-up with manager enrollment and urologist as outpatient. However if heart rate is still elevated then we will call [facility] or [facility] to see if we can transfer patient for valve repair/replacement. I discussed the diagnosis and plan of care with the patient at the bedside. Moderate level of MDM based on addressing above issues. This documentation was transcribed using voice recognition software. Several attempts were made to ensure accuracy. However inadvertent computerized music pastor errors may be present. Nahid Serrato. Hospitalist. [...] patient directly to the [facility] or [facility] given her logistic challenges with [...] artery disease (I25.10: Atherosclerotic heart disease of [place] coronary artery without angina pectoris) 6. Pleural effusion (J90: Pleural effusion, not elsewhere classified) 7. Urinary hesitancy (R39.11: Hesitancy of micturition) 8. Other urethral stricture, female (N35.82: Other urethral stricture, female) 9. Urinary retention (R33.9: Retention of urine, unspecified) 10. Constipation (K59.00: Constipation, unspecified) 11. On deep vein thrombosis (DVT) prophylaxis (Z79.899: Other emt intermediate (current) drug therapy) Orders: acetaminophen, 650 mg [...] shortness of breath and was admitted to [facility] with acute paroxysmal atrial fibrillation with [...] 07/06/23 9:00:00 EST, 07/05/23 11:13:[address] [facility] Hospital Care/Day Moderate 35 Minutes 66827 2. Acute systolic congestive heart failure (I50.21: Acute systolic (congestive) heart failure) Acute systolic congestive heart failure present on admission. Seen by manager enrollment. She is status post cardiac catheterization that showed mild coronary artery disease. Also showed severe mitral regurgitation and tricuspid regurgitation.. Ejection fraction of 30 to 35%. Continue on aspirin, Coreg, losartan, Lasix. Ordered: [facility] Hospital Care/Day Moderate 35 Minutes 97119 3. Severe mitral regurgitation (I34.0: Nonrheumatic mitral (valve) insufficiency) Severe mitral regurgitation seen on cardiac catheterization. Follow-up with manager enrollment as outpatient for HAROON and then valvular repair. Ordered: [facility] Hospital Care/Day Moderate 35 Minutes 23702 4. Elevated troponin (R79.89: Other specified abnormal findings of blood chemistry) Secondary to type II non-ST segment elevation myocardial infarction from above and mild coronary artery disease.. Seen by manager enrollment and underwent cardiac catheterization that showed mild coronary artery disease. Continue on aspirin, Lipitor, and Coreg. Ordered: furosemide, 40 mg = 1 tab(s), Tab, Oral, Daily, Routine, Start date 07/06/23 9:00:00 EST, 07/05/23 11:13:[address] [facility] Hospital Care/Day Moderate 35 Minutes 07373 5. Mild coronary artery disease (I25.10: Atherosclerotic heart disease of [place] coronary artery without angina pectoris) As seen on cardiac catheterization on 07/06/2023. Continue on Lipitor and aspirin. Ordered: [facility] Hospital Care/Day Moderate 35 Minutes 76396 6. Pleural effusion (J90: Pleural effusion, not [...] deep vein thrombosis (DVT) prophylaxis (Z79.899: Other snf (current) drug therapy) Lovenox. Disposition: Home in a.m. to follow-up with manager enrollment and urologist. I discussed the diagnosis and plan of care with the patient at the bedside. Moderate level of MDM based on addressing above issues. This documentation was transcribed using voice recognition software. Several attempts were made to ensure accuracy. However inadvertent computerized music pastor errors may be present. Nahid Serrato. Hospitalist. Orders: Basic Metabolic Panel Basic Metabolic Panel Referral to [facility] Extracted from: Title:APSO Note Author:JAZMÍN MCMAHON, Mbanefo Date:09/03/22 73-year-old female with history of ureteral stricture with previous dilations, anxiety disorder presented with complaints of urinary hesitancy, constipation, cough and shortness of breath and was admitted to [facility] with acute paroxysmal atrial fibrillation with [...] BID, # 60 tab(s), Refills(s) 0, [facility]acy: [id number], 165, cm, 07/02/23 21:30:00 EST, Height/Length Dosing, 55.7, kg, 07/02/23 21:30:00 EST, Weight Dosing Echo Transthoracic Complete [facility] Hospital Care/Day Moderate 35 Minutes 55857 2. Acute systolic congestive heart failure (I50.21: Acute systolic (congestive) heart failure) Acute systolic congestive heart failure present on admission. Cardiology is following. Ejection fraction of 30 to 35%. Cardiology is planning on cardiac catheterization for ischemic work-up in AM. Meanwhile continue on aspirin, Coreg, losartan. We will verify with manager enrollment about Lasix. Ordered: [facility] Hospital Care/Day Moderate 35 Minutes 61616 3. Elevated troponin (R79.89: Other specified abnormal findings of blood chemistry) Secondary to type II non-ST segment elevation myocardial infarction from above. Echocardiogram shows ejection fraction of 30 to 35%. Command Center Officer following with plans for cardiac catheterization in AM. Meanwhile continue on aspirin and Coreg. Ordered: Echo Transthoracic Complete [facility] Hospital Care/Day Moderate 35 Minutes 14225 4. Pleural effusion (J90: Pleural effusion, not elsewhere classified) Small pleural effusion secondary to acute systolic congestive heart failure. Supportive care. Lasix as needed. Ordered: [facility] Hospital Care/Day Moderate 35 Minutes 27185 5. Urinary hesitancy (R39.11: Hesitancy of micturition) Secondary to urethral stricture and urinary retention. She is status post Robles catheter placement. Urology consult reviewed by me. I appreciate and agreed recommendations. Patient will discharge with Robles catheter and leg bag to follow-up with urologist as outpatient. Ordered: [facility] Hospital Care/Day Moderate 35 Minutes 67451 6. Other urethral stricture, female (N35.82: Other [...] NOW, Start date 07/03/23 11:16:[address] [facility] Hospital Care/Day Moderate 35 Minutes 82785 9. On deep vein thrombosis (DVT) prophylaxis (Z79.899: Other snf (current) drug therapy) Lovenox. Disposition: Pending cardiac catheterization in AM. I discussed the diagnosis and plan of care with the patient at the bedside. I also spoke with the patient's daughter Mandeep over the phone. Moderate level of MDM based on addressing above issues. This documentation was transcribed using voice recognition software. Several attempts were made to ensure accuracy. However inadvertent computerized music pastor errors may be present. Nahid Serrato. Hospitalist. [...] deep vein thrombosis (DVT) prophylaxis (Z79.899: Other emt intermediate (current) drug therapy) Urinary retention (R33.9: Retention [...] deep vein thrombosis (DVT) prophylaxis (Z79.899: Other emt intermediate (current) drug therapy) Urinary retention (R33.9: Retention of urine, unspecified) Extracted from: Title:Urology Consult and H&P 2 Author:Cody LEO MD Date:07/03/23 Impression and Plan Diagnosis Atrial fibrillation with RVR (SZU49-TC I48.91, Discharge, Medical). Constipation (OWA36-DX K59.00, Discharge, Medical). Other urethral stricture, female (EYJ24-YA N35.82, Discharge, Medical). Urinary retention (QHE25-NO R33.9, Working, Medical). Course: Worsening, Overall this [...] ordered echocardiogram. Ordered: Echo Transthoracic Complete [facility] Hospital Care/Day Moderate 35 Minutes 55055 2. Elevated troponin (R79.89: Other specified abnormal findings of blood chemistry) Secondary to type II non-ST segment elevation myocardial infarction from above. Echocardiogram ordered. Cardiology consult pending. Continue on aspirin. Ordered: Echo Transthoracic Complete [facility] Hospital Care/Day Moderate 35 Minutes 83696 3. Urinary hesitancy (R39.11: Hesitancy of micturition) Secondary to urethral stricture. Patient is status post Robles catheter placement for urinary retention. She will follow-up with urologist as outpatient. Ordered: [facility] Hospital Care/Day Moderate 35 Minutes 91936 4. Constipation (K59.00: Constipation, unspecified) Started patient on MiraLAX and lactulose. Ordered: lactulose, 20 gram = 30 mL, Syrup, Oral, Once, Stop date 07/03/23 12:00:00 EST, Routine, Start date 07/03/23 12:00:00 EST, 07/03/23 12:00:00 EST polyethylene glycol 3350, 17 gram = 1 EA, Powder-Recon, Oral, Daily, Routine, Start date 07/03/23 12:00:00 EST, 07/03/23 12:00:[address] [facility] Hospital Care/Day Moderate 35 Minutes 80311 5. Other urethral stricture, female (N35.82: Other urethral stricture, female) Resulting in urinary retention. Patient is status post Robles catheter during this admission. Gets dilation of the ureter every 6 months. Urology consult pending. 6. On deep vein thrombosis (DVT) prophylaxis (Z79.899: Other emt intermediate (current) drug therapy) Lovenox. Disposition: Pending echocardiogram, cardiology and urology consult. I discussed the diagnosis and plan of care with the patient at the bedside. Moderate level of MDM based on addressing above issues. This documentation was transcribed using voice recognition software. Several attempts were made to ensure accuracy. However inadvertent computerized music pastor errors may be present. Nahid Serrato. Hospitalist. [...] deep vein thrombosis (DVT) prophylaxis (Z79.899: Other emt intermediate (current) drug therapy) SCD, enoxaparin Orders: acetaminophen, [...] Date:11/22/2023 01:00:00 PM Scheduled Provider:Micheline BROOKS MD Location:[facility] Appointment Type:URO Office Visit Future Scheduled Tests Laboratory* Basic Metabolic Panel 07/12/23 * Digoxin Level 07/12/23 [facility]11-22-2023 NoteCRM entered the room to discuss [...] transport. Plan now to stay, per Dr [facility]ahnAd[facility] HospitalComment on above:Result Comment: Electronically Signed By: Margaret Grimm\.br\Date and Time Signed: 07/05/23 15:06 [id number] Evaluation + Plan noteExtracted from: Title:Procedure Note [...] Date:11/22/2023 01:00:00 PM Scheduled Provider:Micheline BROOKS MD Location:[facility] Appointment Type:URO Office Visit Future Scheduled Tests Laboratory* Basic Metabolic Panel 07/12/23 * Digoxin Level 07/12/23 [facility]11-22-2023 Hospital Discharge instructions Patient Education 07/05/2023 09:04:47 CV - Cardiovascular Discharge Instructions (Custom) [place], [place] CARDIOVASCULAR DISCHARGE INSTRUCTIONS Diet: Resume pre-procedure [...] hours post procedure: Actoplus MetGlucophageGlucophage XR GlucovanceAvandametFortamet Ijo-vpgfzdphvUuucahElfy-juqdpghtg GlumetzaJanumetMetaglip RiometGlycomet *Minimal pain, soreness and/or discomfort [...] are interested in smoking cessation, contact [facility] at [phone], ext. [phone]. In the event you are unable to reach your physician, please call [facility] at [phone] and the holiday detector operator will assist you. Seek Immediate Medical Care for: Bleeding: Apply continuous pressure to the site and Call 911. Should the arm or leg become cold, numb, blue or white call your physician immediately. Signs of infection are redness, warmth, swelling, increased tenderness, colored drainage, fever or chills Chest pain Follow Up Care 07/02/2023 21:18:33 With:Johan HENRIQUEZ Address: [address] [place] [phone]- [phone] Business (1) When:2 weeks Comments:Call for followup appointment With:Peggy Nazario Address: [address] [place] [phone] Business (1) When:07/10/2023 13:00:00 With:Micheline BROOKS Address: [facility] [address] [place] [address] Business (1) When: Unknown Comments:Call for followup appointment re: the indwelling Robles catheter. [facility]11-21-2023 NoteCRM entered the room to discuss dc planning. PCP, DME and insurance discussed. Patient is alert andinvolved in plan of care. Contact information provided and whiteboard updated. [facility] will be [facility]'d on Eliquis. CRM will pablo check and apply coupon if needed. Lucila Humphreys. ANt dc today. Pt will transport self home.[facility] HospitalComment on above:Result Comment: Electronically Signed By: Margaret Grimm\Date and Time Signed: 07/04/23 10:49 [id number] NoteChief Complaint I cannot urinate Reason for [...] deep vein thrombosis (DVT) prophylaxis (Z79.899: Other snf (current) drug therapy) Urinary retention (R33.9: Retention [...] tab(s), Oral, Daily Ativa (more content not included)...[facility] HospitalComment on above: Result Comment: Electronically Signed By: Shell MCMAHON, Eb Yeh\.br\Date and Time Signed: 07/03/23 21:35 [id number] NoteEchocardiology Procedure Exam Date/Time Accession # Ordering Echo Transthoracic 07/03/2023 13:36 EST [id number] Nahid SERRATO MD Complete CPT code 29830 66484 Reason for Exam (Echo Transthoracic Complete) Congestive Heart Failure Report Version: 1 Study ID: [id number] [facility] [address] [place] [address] Adult Echocardiogram Report Name: HARJIT ASENCIO I Study Date: 07/03/2023, 1: 00 PM Patient Location: [address] [place] [address] : 1950 (MM/DD/YYYY) Gender: Female Age: 73 [...] Signed by: Eb Goff MD Transcribed by: [facility] Technologist: [facility]11-20-2023 Note Chief Complaint Pt presents [...] 22:10:00) Lymph Auto: 15.3 % (07/02/23 22:10:00) [place] Auto: 7.7 % (07/02/23 22:10:00) Eos Auto: 0 % (07/02/23 22:10:00) Basophil Auto: 0.3 % (07/02/23 22:10:00) Neutro Absolute: 4.7 E9/L (07/02/23 22:10:00) Lymph Absolute: 0.9 E9/L Low (07/02/23 22:10:00) [place] Absolute: 0.5 E9/L (07/02/23 22:10:00) Eos Absolute: [...] Trace2 Abnormal (07/02/23 22: (more content not included)...[facility] HospitalComment on above:Result Comment: Electronically Signed By: Noman PATTON DO.zak\Date and Time Signed: 07/03/23 02:59 [id number] Hospital Discharge instructions Patient Education 07/01/2023 00:37:46 Abdominal Pain, Adult, Kdud-lx-Ilyf Abdominal Pain, Adult Many things can cause belly (abdominal) pain. Most times, belly pain is not dangerous. Many cases of belly pain can be watched and treated at home. Sometimes, though, belly pain is serious. Your doctor will try to find the cause of your belly pain. Follow these instructions at home: Medicines Take abqi-tgj-pcnnkfh and prescription medicines only as told by [...] your belly pain for any changes. Take vplp-qgh-wfpdlox and prescription medicines only as told by [...] provider. Document Revised: 12/09/2019 Document Reviewed: 12/09/2019 [employer] Patient Education 2022 [employer]. Follow Up Care 06/30/2023 18:51:38 With:Peggy Nazario Address: [address] [place] [phone] Business (1) When:07/04/2023 Comments:You can use the Bentyl, Zofran every 6 hours as needed for pain and nausea. Please follow-up with your primary care doctor next 2 to 3 days for further evaluation management. Please return to the ED for any new or worsening symptoms. [facility]11-17-2023 Evaluation + Plan noteExtracted from: Title:ED Note Author:Koby Masterson DO Date :06/30/23 Abdominal pain, acute (R10.9 : Unspecified abdominal pain) Orders: dicyclomine, 20 mg = 2 mL, Injection, IntraMuscular, Once, Stop date 06/30/23 20:58:00 EST, STAT, Start date 06/30/23 20:58:00 EST, 06/30/23 20:58:00 EST dicyclomine, 10 mg = 1 cap(s), Oral, QID, X 7 day(s), # 14 cap(s), Refills(s) 0, Pharmacy: [facility] #[id number], 165, cm, 06/30/23 19:37:00 EST, Height/Length Dosing, [...] q8hr, # 12 tab(s), Refills(s) 0, Pharmacy: [facility] #[id number], 165, cm, 06/30/23 19:37:00 EST, Height/Length Dosing, 55.7, kg, 06/30/23 19:37:00 EST, Weight Dosing Automated Diff Basic Metabolic Panel CBC w/ Auto Diff CT Abdomen/Pelvis w/o Contrast eGFR Extra Blue Tube Hepatic Function Panel Lipase Level UA With Cult Reflex Future Appointments Appointment Date:11/22/2023 01:00:00 PM Scheduled Provider:Micheline BROOKS MD Location:[facility] Appointment Type:URO Office Visit [facility]09-13-2023 Hospital Discharge instructions Patient Education 04/26/2023 [...] symptoms are. Treatment may include: Using an qhmo-xgt-sctgjcw vaginal lubricant before sex. Using a long-acting [...] Follow these instructions at home: Medicines Take lyht-fqf-rjwautn and prescription medicines only as told by your health care provider. Do not use herbal or alternative medicines unless your health care provider says that you can. Use oskr-vfh-zotocpn creams, lubricants, or moisturizers for dryness only [...] provider. Document Revised: 01/28/2021 Document Reviewed: 01/28/2021 [employer] Patient Education 2022 [employer]. Follow Up Care 10/25/2022 10:34:06 With:CECILIA MCMAHON, Micheline Morgan, URL Address: [facility] [address] [place] [address]- When: Unknown [facility] 08-22-2023 Hospital Discharge instructions Patient Education [...] Follow these instructions at home: Medicines Take jxsi-tpk-egdwrss and prescription medicines only as told by [...] Watch your condition for any changes. Take xwwe-vjb-thywezp and prescription medicines only as told by [...] provider. Document Revised: 09/18/2020 Document Reviewed: 12/09/2019 [employer] Patient Education 2022 [employer]. Follow Up Care 04/04/2023 13:51:29 With:Peggy Nazario Address: [address] [place] [phone] Business (1) When:04/07/2023 16:25:09 Comments:Call the office [...] you develop any new or worsening symptoms. [facility]06-18-2023 Hospital Discharge instructions Patient Education 01/28/2023 23:28:19 RICE Therapy for Routine Care of Injuries, Ykkh-ke-Suyx RICE Therapy for Routine Care of Injuries [...] provider. Document Revised: 05/20/2021 Document Reviewed: 05/20/2021 [employer] Patient Education 2022 [employer]. 01/28/2023 23:28:19 Hand Contusion Hand Contusion A [...] An elastic wrap to support your hand. Wdfj-pwn-lejhxsj medicines to control pain. Follow these instructions [...] sitting or lying down. General instructions Take toxc-oxx-zxobsbj and prescription medicines only as told by [...] provider. Document Revised: 11/18/2021 Document Reviewed: 11/18/2021 [employer] Patient Education 2022 [employer]. Follow Up Care 01/28/2023 21:23:51 With:Peggy Nazario Address: [place] [address] [facility] (1) When:01/31/2023 Comments:Follow-up with your primary care provider in 3 to 5 days. If symptoms worsen, do not improve, or new symptoms arise please report back to emergency department for further evaluation. [facility]06-17-2023 Evaluation + Plan noteExtracted from: Title:ED Note Author:Med Medeiros PA-C te:01/28/23 Contusion of left hand (S60. 222A: Contusion of left hand, initial encounter) Orders: XR Hand 3+ Views Left Future Appointments Appointment Date:04/26/2023 03:15:00 PM Scheduled Provider:Micheline BROOKS MD Location:[facility] Appointment Type:URO Office Visit [facility]03-14-2023 Hospital Discharge instructions Patient Education 10/25/2022 [...] [facility] [address] [place] [address]- Business (1) When:04/27/2023 10:27:19 [facility]07-21-2022 Hospital Discharge instructions Patient Education 03/03/2022 [...] reconstructed. Follow these instructions at home: Take hsve-pwr-rbpdwws and prescription medicines only as told by [...] 08/26/2016 Document Revised: 03/13/2019 Document Reviewed: 03/13/2019 Share [employer] Patient Education 2019 [employer]. Follow Up Care 02/28/2022 09:40:23 With:CARMINA GARRISON PA-C, URL Address: [address] [address] When: Unknown [facility] 07-05-2022 Hospital Discharge instructions Patient Education 02/15/2022 14:03:18 Contusion, Cvib-nb-Utuj Contusion A contusion is a deep bruise. [...] sitting or lying down. General instructions Take zbkj-myq-xxgchna and prescription medicines only as told by [...] is also called RICE. Youmay be given iacz-tph-yjeoraw medicines for pain. Contact a doctor if [...] 01/16/2009 Document Revised: 03/22/2019 Document Reviewed: 03/22/2019 [employer] Patient Education 2020 [employer]. 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 Contact a doctor if: Your symptoms do [...] 07/31/2006 Document Revised: 11/20/2019 Document Reviewed: 10/06/2017 [employer] Patient Education 2020 [employer]. Follow Up Care 12/24/2021 17:34:06 With:Krysta Church Address: [address] [place] [address], [address] [place] [address]- [phone] Business (1) When:12/27/2021 18:21:21 With:Peggy Nazario Address: [address] [place] [phone]- Business (1) When:Within 3 Day(s) [facility] Future Appointments Appointment Date:03/02/2022 02:00:00 PM Scheduled Provider:Micheline BROOKS MD Location:[facility] Appointment Type:URO Office Visit Future Scheduled Tests Laboratory* COVID-19 ([facility]) 08/12/21 [facility] Future Appointments Appointment Date:02/28/2022 09:30:00 AM Scheduled Provider:Yennifer Iraheta MD [facility] Type:Vascular New Patient (FT) Appointment Date:03/02/2022 02:00:00 PM Scheduled Provider:Micheline BROOKS MD Location:[facility] Appointment Type:URO Office Visit Future Scheduled Tests Laboratory* COVID-19 ([facility]) 08/12/21 [facility] Future Appointments Appointment Date:04/04/2022 10:00:00 AM Scheduled Provider:Yennifer Iraheta MD Location[facility] Appointment Type:Vascular New Patient (FT) Future Scheduled Tests Laboratory* COVID-19 ([facility]) 08/12/21 [facility] Evaluation + Plan note Future Appointments Appointment Date:07/25/2022 09:15:00 AM Scheduled Provider:Yennifer Iraheta MD [facility] Type:Vascular Follow Up (FT) Appointment Date:09/26/2022 02:45:00 PM Scheduled Provider:Micheline BROOKS MD [facility] Type:[facility]O Office Visit Future Scheduled Tests Laboratory* [facility] 08/12/21 Radiology* US LE Venous Duplex Insufficiency Bilat 06[facility]14/22 [facility] Future Appointments Appointment Date:07/25/2022 09:15:00 AM Scheduled Provider:Yennifer Iraheta MD [facility] Appointment Type:Vascular Follow Up (FT) Appointment Date:09/26/2022 02:45:00 PM Scheduled Provider:Micheline BROOKS MD [facility] Type:URO Office Visit Future Scheduled Tests Laboratory* COVID-19 ([facility]) 08/12/21 [facility] Future Appointments Appointment Date:09/26/2022 02:45:00 PM Scheduled Provider:Micheline BROOKS MD [facility] Type:[facility]O [facility] Future Appointments Appointment Date:12/05/2022 03:00:00 PM Scheduled Provider: [facility] Appoint[facility] Type:MA Screen (FT) Appointment Date:04/26/2023 03:15:00 PM Scheduled Provider:Micheline BROOKS MD Location:[facility] Appointment Type:URO Office Visit Future Scheduled Tests Radiology* MA Mamm Screen w/CAD if perf and 3D Dawson 12/05/22 [facility] Future Appointments Appointment Date:04/26/2023 03:15:00 PM Scheduled Provider:Micheline BROOKS MD Location:[facility] Shira Appointment Type:URO [facility] Future Appointments Appointment Date:07/19/2023 03:00:00 PM Scheduled Provider:Micheline BROOKS MD Location:[facility] WILL Silva Appointment Type:URO Office Visit Appointment Date:07/20/2023 10:30:00 AM Scheduled Provider:Johan HENRIQUEZ MD [facility] Appointment Type:Cardiology Inpatient Follow Up (FT) Appointment Date:11/22/2023 01:00:00 PM Scheduled Provider:Micheline BROOKS MD Location:[facility] Shira Appointment Type:URO Office Visit Future Scheduled Tests Laboratory* Basic Metabolic Panel 07/12/23 * Digoxin Level [facility]12[facility]23 [facility] Future Appointments Appointment Date:01/24/2024 02:30:00 PM Scheduled Provider:Micheline BROOKS MD Location:[facility] Shira Appointment Type:URO Office Visit Future Scheduled Tests Laboratory* Basic Metabolic Panel 07/12/23 * Digoxin Level 07/12/23 [facility] Future Appointments Appointment Date:01/24/2024 02:30:00 PM Scheduled Provider:Micheline [facility]OOKS [facility] Type:URO Office Visit Diagnostic Tests Pending * Urine Culture 11/22/23 Future Scheduled Tests Laboratory* Basic Metabolic Panel 07/12/23 * Digoxin Level 07/12/23 [facility]* Diagnosis Anxiety Anxiety state, unspecified [facility]* Diagnosis Gastroesophageal reflux disease without esophagitis Esophageal reflux documented [facility]* Diagnosis Non-rheumatic mitral regurgitation- Primary Mitral valve disorders Chronic HFrEF (heart failure with reduced ejection fraction) (HCC) Nonrheumatic tricuspid valve regurgitation Tricuspid valve disorders, specified as nonrheumatic Non-ischemic cardiomyopathy (HCC) Other primary cardiomyopathies Persistent atrial fibrillation (HCC) 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 Long-term (current) use of 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s History of cardioversion Personal history of surgery to heart and great vessels, presenting hazards to health Primary hypertension Unspecified essential hypertension [facility] Diagnosis Mitral valve insufficiency, unspecified etiology- Primary Anxiety Anxiety state, unspecified Paroxysmal atrial fibrillation (CMS/HCC) Atrial fibrillation Other cardiomyopathy (CMS/HCC) Hospital discharge follow-up Other follow-up examination Other thrombophilia (D68.69) Atherosclerosis of aorta (I70.0) Atherosclerosis of aorta documented [facility]* Diagnosis Feeling of incomplete bladder emptying- Primary Incomplete bladder emptying Stricture of female urethra, unspecified stricture type Severe protein-calorie malnutrition (HCC) Other severe protein-calorie malnutrition [facility]* Diagnosis Screening for genitourinary condition Screening for other and unspecified genitourinary condition [facility]* Diagnosis Feeling of incomplete bladder emptying- Primary Incomplete bladder emptying Stricture of female urethra, unspecified stricture type Severe protein-calorie malnutrition (HCC) Other severe protein-calorie malnutrition [facility]* Diagnosis Mitral valve regurgitation due to cardiomyopathy ([facility])- Primary [facility]* Diagnosis Non-rheumatic mitral regurgitation Mitral valve disorders Persistent atrial fibrillation (HCC) Atrial fibrillation Non-ischemic cardiomyopathy (HCC) Other primary cardiomyopathies Chronic HFrEF (heart failure with reduced ejection fraction) ([facility]) [facility]* Diagnosis Stricture of female urethra, unspecified stricture type- Primary Feeling of incomplete bladder emptying Incomplete bladder emptying documented [facility] Diagnosis Screening for genitourinary condition Screening for other and unspecified genitourinary condition documented [facility] Diagnosis Feeling of incomplete bladder emptying- Primary Incomplete bladder emptying Stricture of female urethra, unspecified stricture type [facility]* Diagnosis Dysuria [facility]* Diagnosis Anxiety Anxiety state, unspecified documented [facility]* Diagnosis Postmenopausal atrophic vaginitis Breast cancer screening by mammogram documented [facility]* Diagnosis Dysuria- Primary Urinary frequency Atrial fibrillation, persistent (HCC) ([facility]) 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 BMI 22.0-22.9, adult documented [facility]* Diagnosis Anxiety Anxiety state, unspecified documented [facility]* Diagnosis Primary hypertension (CMS/HCC)- [...] agoraphobia Acute cough- Primary Hematuria, unspecified type 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 Atrial fibrillation, persistent [...] agoraphobia Atrial fibrillation, persistent (HCC) (CMS/HCC)- Primary 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 [facility]* Diagnosis Primary hypertension- Primary Unspecified essential hypertension Atrial fibrillation, persistent (HCC) Atherosclerosis of aorta Panic attack Panic disorder without agoraphobia Bee sting, accidental or unintentional, initial encounter- Primary Gastroesophageal reflux disease without esophagitis Esophageal reflux Ear fullness, right Fluid level behind tympanic membrane of right ear documented [facility] Narrative No data available for this section [facility] Discharge instructions No data available for this section [facility] No data available for this section [facility] for referral (narrative) , Mitral Valve and Tricuspid Valve Repair. Referred by: MARTINEZ MCMAHON, Johan Patino [facility] for referral (narrative)* Outpatient Procedure (Routine) - Authorized Specialty Diagnoses / Procedures Referred By Marietta aguiar Referred To Contact [facility] [place] Diagnoses Non-rheumatic mitral regurgitation Persistent atrial fibrillation (HCC) Non-ischemic cardiomyopathy (HCC) Chronic HFrEF (heart failure with reduced ejection fraction) ([facility]) Procedures ECG COMPLETE ECG ROUTINE ECG W/LEAST 12 [facility]/I&R Ana Rivas, PRODUCTION LINE OPERATOR.STATOR WINDER [address] [place] [address] [facility] [address] [place] [address] Referral ID Status Reason Start Date Expiration Date Visits Requested Visits Authorized [id number] Authorized Auto-Generat ed Referral 11/08/2023 09/25/2024 1 1 * Transition of Care (Routine) - Ref Not Required Specialty Diagnoses / Procedures Referred By Contac t Referred To Contact Diagnoses Non-rheumatic mitral regurgitation Persistent atrial fibrillation (HCC) Non-ischemic cardiomyopathy (HCC) Chronic HFrEF (heart failure with reduced ejection fraction) (HCC) Procedures CARDIOVASCULAR MEDICINE OP FOLLOW UP APPT ORDER Ana Rivas APRN.CNP [address] [place] [address] Referral ID Status Reason Start Date Expiration Date Visits Requested Visits Authorized [id number] Ref Not Required PCP Requested Referral 09/26/2023 09/25/2024 1 1 * Outpatient Procedure (Routine) - Authorized Specialty Diagnoses / Procedures Referred By Contac t Referred To [facility] Diagnoses Non-rheumatic mitral regurgitation Persistent atrial fibrillation (HCC) Non-ischemic cardiomyopathy (HCC) Chronic HFrEF (heart failure with reduced ejection fraction) (HCC) Procedures ECG COMPLETE ECG ROUTINE ECG W/LEAST 12 [facility]&R Ana Rivas APRN.STATOR WINDER [address] [place] [address] [facility] [address] [place] [address] Referral ID Status Reason Start Date Expiration Date Visits Requested Visits Authorized [id number] Authorized Auto-Generat ed Referral 10/25/2023 09/25/2024 1 1 * Transition of Care (Routine) - Ref Not Required Specialty Diagnoses / Procedures Referred By Contac t Referred To Contact Diagnoses Non-rheumatic mitral regurgitation Persistent atrial fibrillation (HCC) Non-ischemic cardiomyopathy (HCC) Chronic HFrEF (heart failure with reduced ejection fraction) (HCC) Procedures CARDIOVASCULAR MEDICINE OP FOLLOW UP APPT ORDER Ana Rivas APRN.CNP [address] [place] [address] Referral ID Status Reason Start Date Expiration Date Visits Requested Visits Authorized [id number] Ref Not Required PCP Requested Referral 09/26/2023 [...] W/LEAST 12 [facility] Ana Rivas APRN.CNP [address] [id number] [facility] [address] [place] [id number] Referral ID Status Reason Start Date Expiration Date Visits Requested Visits Authorized [id number] Authorized Auto-Generat ed Referral 10/10/2023 09/25/2024 1 1 * Transition of Care (Routine) - Ref Not Required Specialty Diagnoses / Procedures Referred By Marietta t Referred To Contact Diagnoses Non-rheumatic mitral regurgitation Persistent atrial fibrillation (HCC) Non-ischemic cardiomyopathy (HCC) Chronic HFrEF (heart failure with reduced ejection fraction) (HCC) Procedures CARDIOVASCULAR MEDICINE OP FOLLOW UP APPT ORDER Ana Rivas APRN.STATOR WINDER [address] [place] [address] Referral ID Status Reason Start Date Expiration Date Visits Requested Visits Authorized [id number] Ref Not Required PCP Requested Referral 09/26/2023 09/25/2024 1 1 [facility] for referral (narrative)* Consultation (Routine) - Pending Review Specialty Diagnoses / Procedures Referred By Contac t Referred To Contact Cardiothoracic Surgery Diagnoses Mitral valve insufficiency, unspecified etiology Procedures IA OFFICE/OUTPATIENT NEW HIGH MDM 60 MINUTES Peggy Nazario MD [address] [place] [address] Referral ID Status Reason Start Date Expiration Date Visits Requested Visits Authorized [id number] Pending Review Specialty Services Required 09/18/2023 03/16/2024 [...] section and content) DATE CREATED AUTHOR 08/23/2021 [facility] dical Specialist DATE CREATED AUTHOR AUTHOR'S ORGANIZ ATION 06/05/2024 [facility] DATE CREATED AUTHOR AUTHOR'S ORGANIZ ATION 06/29/2024 [facility] DATE CREATED AUTHOR AUTHOR'S ORGANIZ ATION 11/22/2024 [facility] DATE CREATED AUTHOR AUTHOR'S ORGANIZ ATION 04/21/2025 [facility] DATE CREATED AUTHOR AUTHOR'S ORGANIZ ATION 04/25/2025 [facility] DATE CREATED AUTHOR AUTHOR'S ORGANIZ ATION 04/26/2025 [facility] DATE CREATED AUTHOR AUTHOR'S ORGANIZ ATION 04/29/2025 [facility] DATE CREATED AUTHOR AUTHOR'S ORGANIZ ATION 05/02/2025 [facility] DATE CREATED AUTHOR AUTHOR'S ORGANIZ ATION 05/03/2025 [facility] DATE CREATED AUTHOR AUTHOR'S ORGANIZ ATION 05/15/2025 [facility] dical Specialists [facility] DATE CREATED AUTHOR AUTHOR'S ORGANIZ ATION 06/01/2025 [facility] Care Team (unrecognized sect ion and content) Tear Down Matcher Relationship Specialty Start Date End Date Peggy Nazario [address] [place] [address] PCP - General Family Medicine 07/24/23 Micheline Sorto MD [address] [facility] [place] [address] Surgeon Cardiac Surg 07/24/23 Johan Henriquez MD [address] [facility] [place] [address] Command Center Officer Cardiology 07/24/23 Tear Down Matcher Relationship Specialty Start Date End Date Peggy Nazario MD [address] [place] [address] PCP - ACO Reach 01/05/23 Peggy Nazario MD [address] [place] [address] PCP - General Family Medicine 02/08/23 Tear Down Matcher Relationship Specialty Start Date End Date Peggy Nazario MD [address] [place] [address] PCP - ACO Reach 01/05/23 Peggy Nazario MD [address] [place] [address] PCP - General Family Medicine 02/08/23 Tear Down Matcher Relationship Specialty Start Date End Date Peggy Nazario [address] [place] [address] PCP - General Family Medicine 07/24/23 Micheline Sorto MD [address] [place] [address] Surgeon Cardiac Surg 07/24/23 Johan Henriquez MD [facility] [address] [address] Command Center Officer Cardiology 07/24/23 Alea Harley MD [address] [place] [address] Cardiology 07/28/23 Alea Harley MD [address] [place] [address] Primary Staff Physician Cardiology 08/23/23 Tear Down Matcher Relationship Specialty Start Date End Date Peggy Nazario [address] [place] [address] PCP - General Family Medicine 07/24/23 Micheline Sorto MD [address] [place] [address] Surgeon Cardiac Surg 07/24/23 Johan Henriquez MD [address] [place] [address] Command Center Officer Cardiology 07/24/23 Alea Harley MD [address] [place] [address] Cardiology 07/28/23 Alea Harley MD [address] [place] [address] Primary Staff Physician Cardiology 08/23/23 Tear Down Matcher Relationship Specialty Start Date End Date Peggy Nazario [address] [place] [address] PCP - General Family Medicine 07/24/23 Micheline Sorto MD [address] [place] [address] Surgeon Cardiac Surg 07/24/23 Johan Henriquez MD [address] [place] [address] Command Center Officer Cardiology 07/24/23 Alea Harley MD [address] [place] [address] Cardiology 07/28/23 Alea Harley MD [address] [place] [address] Primary Staff Physician Cardiology 08/23/23 Tear Down Matcher Relationship Specialty Start Date End Date Peggy Nazario MD [address] [place] [address] PCP - ACO Reach 01/05/23 Peggy Nazario MD [address] [place] [address] PCP - General Family Medicine 02/08/23 Tear Down Matcher Relationship Specialty Start Date End Date Peggy Nazario [address] [place] [address] PCP - General Family Medicine 07/24/23 Micheline Sorto MD [address] [place] [id number] Surgeon Cardiac Surg 07/24/23 Joahn Henriquez MD [facility] [address] [place] [id number] Command Center Officer Cardiology 07/24/23 Alea Harley MD [address] [place] [address] Cardiology 07/28/23 Alea Harley MD [address] [place] [address] Primary Staff Physician Cardiology 08/23/23 Tear Down Matcher Relationship Specialty Start Date End Date Peggy Nazario MD [address] [place] [address] PCP - ACO Reach 01/05/23 Peggy Nazario MD [address] [place] [address] PCP - General Family Medicine 02/08/23 Tear Down Matcher Relationship Specialty Start Date End Date Peggy Nazario [address] [place] [address] PCP - General Family Medicine 07/24/23 Micheline Sorto MD [address] [place] [address] Surgeon Cardiac Surg 07/24/23 Johan Henriquez MD [address] [place] [address] Command Center Officer Cardiology 07/24/23 Alea Harley MD [address] [place] [address] Cardiology 07/28/23 Alea Harley MD [address] [place] [address] Primary Staff Physician Cardiology 08/23/23 Tear Down Matcher Relationship Specialty Start Date End Date Peggy Nazario [address] [place] [address] PCP - General Family Medicine 07/24/23 Micheline Sorto MD [address] [place] [address] Surgeon Cardiac Surg 07/24/23 Johan Henriquez MD [address] [place] [address] Command Center Officer Cardiology 07/24/23 Alea Harley MD [address] [place] [address] Cardiology 07/28/23 Alea Harley MD [address] [place] [address] Primary Staff Physician Cardiology 08/23/23 Tear Down Matcher Relationship Specialty Start Date End Date Peggy Nazario [address] [place] [address] PCP - General Family Medicine 07/24/23 Micheline Sorto MD [address] [place] [address] Surgeon Cardiac Surg 07/24/23 Johan Henriquez MD [address] [facility] [address] Command Center Officer Cardiology 07/24/23 Alea Harley MD [address] [place] [address] Cardiology 07/28/23 Alea Harley MD [address] [place] [address] Primary Staff Physician Cardiology 08/23/23 Tear Down Matcher Relationship Specialty Start Date End Date Peggy Nazario [address] [place] [address] PCP - General Family Medicine 07/24/23 Micheline Sorto MD [address] [place] [address] Surgeon Cardiac Surg 07/24/23 Johan Henriquez MD [address] [place] [address] Command Center Officer Cardiology 07/24/23 Alea Harley MD [address] [place] [address] Cardiology 07/28/23 Alea Harley MD [address] [place] [address] Primary Staff Physician Cardiology 08/23/23 Tear Down Matcher Relationship Specialty Start Date End Date Peggy Nazario [address] [place] [address] PCP - General Family Medicine 07/24/23 Micheline Sorto MD [address] [place] [address] Surgeon Cardiac Surg 07/24/23 Johan Henriquez MD [address] [place], [place] [address] [place] [id number] Command Center Officer Cardiology 07/24/23 Alea Harley MD [address] [place] [address] Cardiology 07/28/23 Alea Harley MD [address] [place] [address] Primary Staff Physician Cardiology 08/23/23 Tear Down Matcher Relationship Specialty Start Date End Date Peggy Nazario [address] [place] [address] PCP - General Family Medicine 07/24/23 Micheline Sorto MD [address] [place] [address] Surgeon Cardiac Surg 07/24/23 Johan Henriquez MD [address] [place] [address] Command Center Officer Cardiology 07/24/23 Alea Harley MD [address] [place] [address] Cardiology 07/28/23 Alea Harley MD [address] [place] [address] Primary Staff Physician Cardiology 08/23/23 Tear Down Matcher Relationship Specialty Start Date End Date Peggy Nazario [address] [place] [address] [place] [address] PCP - General Family Medicine 07/24/23 Micheline Sorto MD [address] [place] [address] Surgeon Cardiac Surg 07/24/23 Johan Henriquez MD [address] [place] [address] Command Center Officer Cardiology 07/24/23 Alea Harley MD [address] [place] [address] Cardiology 07/28/23 Alea Harley MD [address] [place] [address] Primary Staff Physician Cardiology 08/23/23 Tear Down Matcher Relationship Specialty Start Date End Date Peggy Nazario [address] [place] [address] PCP - General Family Medicine 07/24/23 Micheline Sorto MD [address] [facility] [address] Surgeon Cardiac Surg 07/24/23 Johan Henriquez MD [facility] [address] [place] [address] Command Center Officer Cardiology 07/24/23 Alea Harley MD [address] [place] [address] Cardiology 07/28/23 Alea Harley MD [address] [facility] [place] [address] Primary Staff Physician Cardiology 08/23/23 Tear Down Matcher Relationship Specialty Start Date End Date Peggy Nazario MD [address] [place] [address] PCP - ACO Reach 01/05/23 Hannah Brian MD [address] [place] [address] PCP - General Family Medicine 11/03/23 Tear Down Matcher Relationship Specialty Start Date End Date Peggy Nazario MD [address] [place] [address] PCP - ACO Reach 01/05/23 Hannah Brian MD [address] [place] [address] PCP - General Family Medicine 11/03/23 Tear Down Matcher Relationship Specialty Start Date End Date Peggy Nazario MD [address] [place] [address] PCP - ACO Reach 01/05/23 Hannah Brian MD [address] [place] [address] PCP - General Family Medicine 11/03/23 Tear Down Matcher Relationship Specialty Start Date End Date Peggy Nazario MD [address] [place] [address] PCP - ACO Reach 01/05/23 Hannah Brian MD [address] [place] [address] PCP - General Family Medicine 11/03/23 Tear Down Matcher Relationship Specialty Start Date End Date Peggy Nazario MD [address] [place] [address] PCP - ACO Reach 01/05/23 Hannah Brian MD [address] [place] [address] PCP - General Family Medicine 11/03/23 Tear Down Matcher Relationship Specialty Start Date End Date Peggy Nazario MD [address] [place] [address] PCP - ACO Reach 01/05/23 Hannah Brian MD [address] [place] [address] PCP - General Family Medicine 11/03/23 Tear Down Matcher Relationship Specialty Start Date End Date Peggy Nazario MD [address] [place], [place] [id number] PCP - ACO Reach 01/05/23 Hannah Brian MD [address] [place] [address] PCP - General Family Medicine 11/03/23 Tear Down Matcher Relationship Specialty Start Date End Date Peggy Nazario MD [address] [place] [address] PCP - ACO Reach 01/05/23 Peggy Nazario MD [address] [place] [address] PCP - General Family Medicine 02/08/23 11/02/23 Tear Down Matcher Relationship Specialty Start Date End Date Peggy Nazario MD [address] [place] [address] PCP - ACO Reach 01/05/23 Hannah Brian MD [address] [place] [address] PCP - General Family Medicine 11/03/23 Tear Down Matcher Relationship Specialty Start Date End Date Peggy Nazario MD [address] [place] [address] PCP - ACO Reach 01/05/23 Hannah Brian MD [address] [place] [address] PCP - General Family Medicine 11/03/23 Tear Down Matcher Relationship Specialty Start Date End Date Peggy Nazario MD [address] [place] [address] PCP - ACO Reach 01/05/23 Hannah Brian MD [address] [place] [address] PCP - General Family Medicine 11/03/23 Tear Down Matcher Relationship Specialty Start Date End Date Peggy Nazario MD [address] [place] [address] PCP - ACO Reach 01/05/23 Hannah Brian MD [address] [place] [address] PCP - General Family Medicine 11/03/23 Tear Down Matcher Relationship Specialty Start Date End Date Peggy Nazario MD [address] [place] [address] PCP - ACO Reach 01/05/23 Hannah Brian MD [address] [place] [address] PCP - General Family Medicine 11/03/23 Tear Down Matcher Relationship Specialty Start Date End Date Peggy Nazario MD [address] [place] [address] PCP - ACO Reach 01/05/23 Hannah Brian MD [address] [place] [address] PCP - General Family Medicine 11/03/23 Tear Down Matcher Relationship Specialty Start Date End Date Peggy Nazario MD [address] [place] [address] PCP - ACO Reach 01/05/23 Hannah Brian MD [address] [place] [address] PCP - General Family Medicine 11/03/23 Tear Down Matcher Relationship Specialty Start Date End Date Peggy Nazario MD [address] [place] [address] PCP - ACO Reach 01/05/23 Hannah Brian MD [address] [place] [address] PCP - General Family Medicine 11/03/23 Tear Down Matcher Relationship Specialty Start Date End Date Peggy Nazario MD [address] [place] [address] PCP - ACO Reach 01/05/23 Hannah Brian MD [address] [place] [address] PCP - General Family Medicine 11/03/23 Tear Down Matcher Relationship Specialty Start Date End Date Peggy Nazario MD [address] [place] [address] PCP - ACO Reach 01/05/23 Hannah Brian MD [address] [place] [address] PCP - General Family Medicine 11/03/23 Tear Down Matcher Relationship Specialty Start Date End Date Peggy Nazario MD [address] [place] [address] PCP - ACO Reach 01/05/23 Hannah Brian MD [address] [place] [address] PCP - General Family Medicine 11/03/23 Tear Down Matcher Relationship Specialty Start Date End Date Peggy Nazario MD [address] [place] [address] PCP - ACO Reach 01/05/23 Hannah Brian MD [address] [place] [address] PCP - General [facility] 11/03/23 Tear Down Matcher Relationship Specialty Start Date End Date Peggy Nazario MD [address] [place] [address] PCP - ACO Reach 01/05/23 Hannah Brian MD [address] [place] [address] PCP - General Family Medicine 11/03/23 Source Comments (unrecognize d section and content) In the event this informatio n is protected by the Federal Confidentiality of Alcohol and Drug Abuse Patient Records regulations: The Federal rules restrict any use of the information to criminally investigate or prosecute any alcohol or drug abuse patient.[facility] the event this information is protected by the Federal Confidentiality of Alcohol and Drug Abuse Patient Records regulations: The Federal rules restrict any use of the information to criminally investigate or prosecute any alcohol or drug abuse patient.[facility] the event this information is protected by the Federal Confidentiality of Alcohol and Drug Abuse Patient Records regulations: The Federal rules restrict any use of the information to criminally investigate or prosecute any alcohol or drug abuse patient.[facility] the event this information is protected by the Federal Confidentiality of Alcohol and Drug Abuse Patient Records regulations: The Federal rules restrict any use of the information to criminally investigate or prosecute any alcohol or drug abuse patient.[facility] the event this information is protected by the Federal Confidentiality of Alcohol and Drug Abuse Patient Records regulations: The Federal rules restrict any use of the information to criminally investigate or prosecute any alcohol or drug abuse patient.[facility] the event this information is protected by the Federal Confidentiality of Alcohol and Drug Abuse Patient Records regulations: The Federal rules restrict any use of the information to criminally investigate or prosecute any alcohol or drug abuse patient.[facility] the event this information is protected by the Federal Confidentiality of Alcohol and Drug Abuse Patient Records regulations: The Federal rules restrict any use of the information to criminally investigate or prosecute any alcohol or drug abuse patient.[facility] the event this information is protected by the Federal Confidentiality of Alcohol and Drug Abuse Patient Records regulations: The Federal rules restrict any use of the information to criminally investigate or prosecute any alcohol or drug abuse patient.[facility] the event this information is protected by the Federal Confidentiality of Alcohol and Drug Abuse Patient Records regulations: The Federal rules restrict any use of the information to criminally investigate or prosecute any alcohol or drug abuse patient.[facility] the event this information is protected by the Federal Confidentiality of Alcohol and Drug Abuse Patient Records regulations: The Federal rules restrict any use of the information to criminally investigate or prosecute any alcohol or drug abuse patient.[facility] the event this information is protected by the Federal Confidentiality of Alcohol and Drug Abuse Patient Records regulations: The Federal rules restrict any use of the information to criminally investigate or prosecute any alcohol or drug abuse patient.[facility] the event this information is protected by the Federal Confidentiality of Alcohol and Drug Abuse Patient Records regulations: The Federal rules restrict any use of the information to criminally investigate or prosecute any alcohol or drug abuse patient.[facility] the event this information is protected by the Federal Confidentiality of Alcohol and Drug Abuse Patient Records regulations: The Federal rules restrict any use of the information to criminally investigate or prosecute any alcohol or drug abuse patient.[facility] the event this information is protected by the Federal Confidentiality of Alcohol and Drug Abuse Patient Records regulations: The Federal rules restrict any use of the information to criminally investigate or prosecute any alcohol or drug abuse patient.[facility] the event this information is protected by the Federal Confidentiality of Alcohol and Drug Abuse Patient Records regulations: The Federal rules restrict any use of the information to criminally investigate or prosecute any alcohol or drug abuse patient.[facility] Reason for Visit (unrecogniz ed section and [...] cardiomyopathy (HCC) Decompensated heart failure (HCC) Procedures [address] [place] [address] IP/OBS CARE HIGH MDM 75 MINUTES MEDICATION MANAGEMENT CONSULTS [facility] [id number] [place] [address] Referral ID Status Reason Start Date Expiration Date Visits Re quested Visits Authorized [id number] 1 1 Reason Comments Refill Request Reason Comments Follow Up Reason Comments Cystoscopy-1 Patient Education Reason Comments Gynecologic Exam Medicare off year.ANDRE P: MIR SHEFFIELD 1986HRT: NoneLast pap 07-24-23 neg.Last mammogram 12-05-22 [facility]. Not sure when she can do it [...] UTI Reason Onset Date Comments Other 04/19/2025 scalloper Reason Comments UTI Immunizations Declines at this [...] BE BASED ON THE PRIMARY CLINICAL RECORDS. [employer] [facility]. provides no warranty or guarantee of the accuracy or completeness of information in this document.
[2025-06-02 23:27] VITALS: BP 154/82; PULSE 71; TEMP 36.8; O2SAT 99; BMI 21.6
--- NOTE | 2025-06-02 23:43 | ED.GENADUL1 ---
HPI HPI - General Adult General Chief complaint: Abdominal Pain Stated complaint: HEMHROIDS HURTING HER Time Seen by Provider: 06/02/25 23:37 Source: patient Mode of arrival: walk-in Limitations: no limitations History of Present Illness HPI narrative: 75-year-old female presents to the emergency department for hemorrhoids. She states that she pushed them back in but she passed some bright red blood. She does not complain of abdominal pain but she is worried she might have C. difficile again. Several weeks ago she had heart surgery at [facility], on a valve. Related Data Home Medications ?Medication ?Instructions ?Recorded ?Confirmed atorvastatin 40 mg tablet 40 mg PO .once daily 10/15/23 06/02/25 lorazepam 0.5 mg tablet 0.5 mg PO TID PRN anxiety 10/15/23 06/02/25 spironolactone 25 mg tablet 12.5 mg PO .once daily 10/15/23 06/02/25 apixaban 5 mg tablet (Eliquis) 5 mg PO BID 06/01/24 06/02/25 carvedilol 6.25 mg tablet 6.25 mg PO BID 01/19/25 06/02/25 famotidine 20 mg tablet mg 06/02/25 Previous Rx's ?Medication ?Instructions ?Recorded dicyclomine 20 mg tablet 20 mg PO BID PRN abdominal pain 04/10/25 #14 tabs Allergies Allergy/AdvReac Type Severity Reaction Status Date / Time meperidine (From Demerol) Allergy Intermediate Agitated Verified 06/02/25 10:58 Opioid HPI Opioid Management Most Recent Opioid Data: Last Pain Scale 6 Today, 00:15 Review of Systems ROS Narrative A ten point review of systems is negative except as noted above. PFSH PFSH Social History Smoking status: Former smoker Little interest or pleasure in doing things: not at all Feeling down, depressed, or hopeless: not at all Exam Narrative Exam Narrative: Nurses note and vital signs reviewed General:The patient appears well and in no apparent distress.Patient is resting comfortably on cart. Skin:Warm, dry, no pallor noted.There is no rash noted. Head:Normocephalic, atraumatic Eye: Normal conjunctiva, no drainage Ears, Nose, Mouth, and Throat: oral mucosa is moist. Nares patent. Cardiovascular: Not tachycardic Respiratory:Patient is in no distress, no accessory muscle use, lungs are clear to auscultation, no wheezing, rales or rhonchi Back:non-tender GI: Soft and nontender. No external hemorrhoids present. Musculoskeletal: The patient has no evidence of calf tenderness, no pitting edema, symmetrical pulses noted bilaterally Neurological: Awake and alert Psychiatric:Cooperative Constitutional Vital Signs, click to edit/add: Last Vital Signs Temp 98.2 F 06/03/25 02:28 Pulse 67 06/03/25 02:28 Resp 18 06/03/25 02:28 BP 149/63 H 06/03/25 02:28 Pulse Ox 98 06/03/25 02:28 O2 Del Method Room Air 06/02/25 23:27 Course Vital Signs Vital signs: Vital Signs Temperature 98.2 F 06/02/25 23:27 Pulse Rate 71 06/02/25 23:27 Respiratory Rate 18 06/02/25 23:27 Blood Pressure 154/82 H 06/02/25 23:27 Pulse Oximetry 99 06/02/25 23:27 Oxygen Delivery Method Room Air 06/02/25 23:27 Temperature 98.2 F 06/03/25 02:28 Pulse Rate 67 06/03/25 02:28 Respiratory Rate 18 06/03/25 02:28 Blood Pressure 149/63 H 06/03/25 02:28 Pulse Oximetry 98 06/03/25 02:28 Oxygen Delivery Method Room Air 06/02/25 23:27 Medical Decision Making MDM Narrative Medical decision making narrative: The patient has no hemorrhoids on external exam. She could not urinate so Robles catheter was inserted and a CT scan is ordered. C. difficile test is also ordered. CT scan is consistent with colitis and she was given IV Cipro and Flagyl pending the C. difficile test. She is being admitted and the case was discussed with Dr. Reeves who accepts the patient for admission. Differential Diagnosis Differential Diagnosis: Urinary retention, obstruction, hemorrhoids Lab Data Lab results reviewed: Yes I reviewed the patient's lab results Labs: Lab Results 06/03/25 Range/Units 00:10 WBC 12.1 H (4.0-11.0) 10^3/uL RBC 4.41 (4.20-5.40) 10^6/uL Hgb 13.2 (12.0-16.0) g/dL Hct 40.2 (36.0-48.0) % MCV 91.2 (81.0-99.0) fL MCH 29.9 (26.7-34.0) pg MCHC 32.8 (29.9-35.2) g/dL RDW 13.5 (11.0-15.0) % Plt Count 196 (150-450) 10^3/uL MPV 10.0 (9.5-13.5) fL Neut % (Auto) 85.1 H (43.0-75.0) % Lymph % (Auto) 8.7 L (20.5-60.0) % Sequoyah % (Auto) 5.5 (1.7-12.0) % Eos % (Auto) 0.3 L (0.9-7.0) % Baso % (Auto) 0.2 (0.2-2.0) % Neut # (Auto) 10.3 H (1.4-6.5) 10^3/uL Lymph # (Auto) 1.1 L (1.2-3.8) 10^3/uL Sequoyah # (Auto) 0.7 (0.3-0.8) 10^3/uL Eos # (Auto) 0.0 (0.0-0.7) 10^3/uL Baso # (Auto) 0.0 (0.0-0.1) 10^3/uL Abs Immat Gran (auto) 0.03 (0.00-0.03) 10^3/uL Imm/Tot Granulo (auto) 0.2 (0.0-0.5) % Sodium 133 L (136-145) mmol/L Potassium 3.9 (3.5-5.1) mmol/L Chloride 97 L (98-107) mmol/L Carbon Dioxide 29.0 (21.0-32.0) mmol/L Anion Gap 10.9 BUN 18.0 (7.0-18.0) mg/dL Creatinine 1.07 H (0.55-1.02) mg/dL Est GFR ( Amer) >60 (>=60 mL/min/1.73m^2) Est GFR (Non-Af Amer) 50 L (>=60 mL/min/1.73m^2) BUN/Creatinine Ratio 16.8 Glucose 127 H (74-106) mg/dL Calcium 9.4 (8.5-10.1) mg/dL Imaging Data CT scan - abdomen: Radiologist's impression: Colitis Discharge Plan Discharge Chief Complaint: Abdominal Pain Clinical Impression: Colitis Patient Disposition: Admitted As Inpatient Time of Disposition Decision: 05:57 Condition: Fair
[2025-06-03] VITALS (39 sets, daily range): BP systolic 104–163; BP diastolic 56–87; PULSE 67–92; TEMP 36.3–37.2; O2SAT 84–100; BMI 21.0
[2025-06-03 00:17] LABS: Hematocrit 40.2 % (36.0-48.0); Hemoglobin 13.2 g/dL (12.0-16.0); Immature Granulocytes Abs Auto 0.03 10^3/uL (0.00-0.03); Immature Granulocytes Pct Auto 0.2 % (0.0-0.5); Lymphocytes Absolute Auto 1.1 10^3/uL (1.2-3.8); Mean Corpuscular HGB Conc 32.8 g/dL (29.9-35.2); Mean Corpuscular Hemoglobin 29.9 pg (26.7-34.0); Mean Corpuscular Volume 91.2 fL (81.0-99.0); Platelet Count 196 10^3/uL (150-450); Red Blood Count 4.41 10^6/uL (4.20-5.40); White Blood Count 12.1 10^3/uL (4.0-11.0)
[2025-06-03 00:28] LABS: Anion Gap 10.9; Blood Urea Nitrogen 18.0 mg/dL (7.0-18.0); Calcium 9.4 mg/dL (8.5-10.1); Carbon Dioxide 29.0 mmol/L (21.0-32.0); Chloride 97 mmol/L (98-107); Estimated GFR (African America >60 (>=60 mL/min/1.73m^2); Estimated GFR (Non-African Ame 50 (>=60 mL/min/1.73m^2); Glucose 127 mg/dL (74-106); Potassium 3.9 mmol/L (3.5-5.1); Sodium 133 mmol/L (136-145)
--- NOTE | 2025-06-03 01:33 | PC.NURSE ---
bladder scan = 340 of urine in bladder, Dr Ramirez informed of the bladder scan result
--- OUTSIDE RECORDS SUMMARY | 2025-06-03 06:10 | XMS_ITS | CCD ---
Author Organization [facility] Care Team Providers Care Clinical Dermatologist Name Role Phone Peggy Nazario Primary Care Physician Micheline Sorto MD Unavailable Johan Henriquez MD Unavailable Peggy Nazario Primary Care Provider Peggy Nazario MD Unavailable [phone] Peggy Nazario MD Primary Care Provider Alea Harley MD Unavailable [phone] Alea Harley MD Unavailable [phone] Hannah Biran Primary Care Physician Peggy Nazario Primary Care Provider Johan HENRIQUEZ Admitting Unavailable Johan HENRIQUEZ Consulting Unavailable Johan HENRIQUEZ Attending Unavailable Johan EHNRIQUEZ Referring Unavailable Johan HENRIQUEZ Consulting Unavailable Johan HENRIQUEZ Consulting Unavailable Hannah Brian Admitting Unavailable Hannah Brian Attending Unavailable Hannah Brian Referring Unavailable PATTY YAO Admitting Unavailable PATTY YAO Attending Unavailable Nahid SERRATO Attending Unavailable Eb Goff Consulting Unavaila DO Noman Cooper Admitting UnavailMD Eb Walter Consulting Unava ilable Eb Goff Consulting Unavaila ble [facility] [place] Consulting Unavailable Koby Masterson Attending [...] Attending Unavailable ALEA HARLEY Referring Unavailable NAZARIO, [facility] Primary Care Unavailabl e VASAVADA, RAPHAEL P Referring Unavailable VASAVADA, RAPHAEL P Attending Unavailable NAZARIO, PEGGY JAYDE Primary Care Unavailabl e NAZARIO, [facility] Primary Care Unavailabl e HAMMALEA GAITAN F Referring Unavailable NAZARIO, [facility] Primary Care Unavailabl e NITHYA, MICHELINE Referring Unavailable NAZARIO, [facility] Primary Care Unavailabl e VASAVADA, RAPHAEL P Attending Unavailable SELF Referring Unavailable ALEA HARLEY Referring Unavailable NAZARIO, [facility] Primary Care Unavailabl e ANA RIVAS Attending Unavailable NAZARIO, [facility] Primary Care Unavailabl e NAZARIO, [facility] Primary Care Unavailabl e NITHYA, MICHELINE Attending Unavailable NITHYA, MICHELINE Referring Unavailable YECENIA GLEZ Admitting Unavailable NAZARIO, [facility] Primary Care Unavailabl e YECENIA GLEZ Attending Unavailable NAZARIO, [facility] Primary Care Unavailabl e NITHYA, MICHELINE Referring Unavailable NITHYA, MICHELINE Referring Unavailable NAZARIO, [facility] Primary Care Unavailabl e NITHYA, MICHELINE Referring Unavailable GIANNI VILLALBA Attending Unavailable NAZARIO, [facility] Primary Care Unavailabl e NITHYA, MICHELINE Referring Unavailable NAZARIO, PEGGY JAYDE Primary Care Unavailabl e NAZARIO, [facility] Primary Care Unavailabl e VASAVADA, RAPHAEL P Referring Unavailable VASAVADA, RAPHAEL P Attending Unavailable NITHYA, MICHELINE Referring Unavailable ALEA HARLEY Attending Unavailable NAZARIO, [facility] Primary Care Unavailabl e NAZARIO, [facility] Primary Care Unavailabl e VASAVADA, RAPHAEL P [...] Calloway. Admitting Unavailable Jayson Calloway. Attending Unavailable EvaristojdLayton farris Attending Unavailable KTSHERLYN CAMPOS Attending Unavailable SNEHAL, HANNAH M Attending Unavailable SNEHAL, HANNAH M Attending Unavailable SNEHAL, HANNAH M Attending Unavailable SNEHAL, HANNAH M Attending Unavailable SNEHAL, HANNAH M Attending Unavailable KTSHERLYN CAMPOS Attending Unavailable STEPHAN BOO Attending Unavailable RICKIE AVILES Attending Unavailab le SNEHAL, HANNAH De Leon Attending Unavailable SNEHAL, HANNAH M Attending Unavailable SNEHAL, HANNAH M Attending Unavailable SNEHAL, HANNAH M Attending Unavailable MOUKARBEL, RAFALE Admitting Unavailable MOUKARBEL, RAFAEL Attending Unavailable MOUKARBEL, [...] Unavailable MOUKARBEL, RAFAEL Attending Unavailable Allergies Allergy ClassificationReported Allergen(s)Allergy TypeDate of OnsetReaction(s) Facility (20 sources)Cephalexin; Translations: [cephalexin]Drug Zanbxyk47-03-3811XD intolerance, [facility] (20 sources)Egg; Translations: [Eggs]Food allergyUnknown (qualifier value)[facility] (20 sources)Meperidine; Translations: [meperidine]Drug Xqkfppc27-17-9696Yoimrtm (disorder), Other: See [facility] (20 sources)Morphine; Translations: [morphine]Drug Fkedmvz04-20-7831Ipuiidy [facility] (20 sources)Sulfonamides (Antibiotic); Translations: [sulfa drugs]Drug allergy [facility] (2 sources)Aspirin; Translations: [ASPIRIN]Drug Qoqhzuk97-55-6256Axeed: See [facility] (9 sources)Latex; Translations: [LATEX]Drug Kwlqnpyfxhf31-91-6105Fzxg, Hives [facility] (20 sources)Aluminum aspirinDrug Vesfqnd51-96-6900[facility] (20 sources)Amoxicillin; Translations: [AMOXICILLIN]Drug Gpabmwa73-40-0340 [facility] (20 sources)Erythromycin; Translations: [ERYTHROMYCIN]Drug Ovroijp96-37-6007 UnknownSaint [facility]'s [facility] (20 sources)LatexPropensity to adverse ionqrdyqt92-99-2379Mztob, RashSaint [facility]'s [facility] (20 sources)MeperidineDrug Atintgw84-18-2904BbydiccJFRY Healthcare (20 sources)Sulfonamides (Antibiotic)Drug Vipekbf28-96-6830NF intolerance, IntoleranceSaint John's [facility] Community Hospital (20 sources)WHEAT DEXTRIN; Translations: [WHEAT BRAN]Drug Luvnfpb04-45-4300UAPV [facility] (20 sources)WHEAT DEXTRINDrug Umosbye03-43-5246EGWR [facility] (5 sources)Eggs Or Egg-Derived ProductsDrug Ppbvtgh51-56-6696QWED [facility] (15 sources)egg extract; Translations: [EGG]Drug Mfellwm53-75-9347Swwssowplvd, GI UpsetC[facility] Clinic [facility] (4 sources)Meperidine; Translations: [Demerol HCl]Drug AllergyC[facility] (2 sources)Sulfonamides (Antibiotic); Translations: [SULFA (SULFONAMIDE ANTIBIOTICS)]Propensity to adverse reactions to drug (disorder)07-24-2023 [facility] [place] [facility] (20 sources)empagliflozin; Translations: [EMPAGLIFLOZIN]Drug Mktbfyo75-75-0762 AngioedemaSaint John's [facility] Hospital Work Phone: (20 sources)Egg-Derived ProductsDrug Gvvvken90-70-3265DBKO [facility] (20 sources)Amiodarone; Translations: [AMIODARONE]Drug Uajbzef29-27-9267Mwdryt And VomitingNOMS Healthcare (20 sources)Valsartan; Translations: [VALSARTAN]Propensity to adverse reactions 31-10-0690[facility] (3 sources)Egg Protein-Containing Drug ProductsDrug Rnpvmbc73-10-6426WFP[facility] (1 source)Penicillins; Translations: [PENICILLINS]Propensity to adverse reactions to drug (disorder)84-37-8263[facility]xxpyjL[facility] (1 source)EGG DERIVED; Translations: [EGG DERIVED]Propensity to adverse reactions to drug (disorder)05-47-2961RdgjpyeqnjLutheran Hospital Repository Medications Current Medications MedicationDrug Class(es)DatesSig (Normalized)Sig (Original)amoxicillin 500 mg / clavulanate 125 mg oral tablet (2 sources)Penicillin-class AntibacterialStart: 07-19-2023 End: 65-35-7942Chmkkzkqd 500 mg-125 mg Tab 1 tab(s), Oral, q24hr for 14 day(s), 14 tab(s), Refill(s) 0, [facility], 165, cm, 07/19/23 15:21:00 EST, Height/Length Dosing, 54.4, kg, 07/19/23 15:21:00 EST, Weight Dosing Start Date: 07/19/23 Stop Date: 08/02/23 Status: Orderedapixaban 5 mg oral tablet (20 sources)Factor Xa InhibitorStart: 07-11-2023 End: 58-68-2679aopx 1 tablet by mouth in the morningEliquis 5 MG tablet Take 5 mg by mouth in the morning and 5 mg before bedtime. 07/11/2023 ActiveStart: 61-06-1356evxq 1 tablet by mouth twice dailyEliquis 5 mg oral tablet 5 mg = 1 tab(s), Oral, BID, # 60 tab(s), Refills(s) 0, [id number], 165, cm, 07/02/23 21:30:00 EST, Height/Length Dosing, 55.7, kg, 07/02/23 21:30:00 EST, Weight Dosing Start Date: 07/11/23 Status: OrderedStart: 07-22-0570fodj 1 tablet by mouth twice dailyEliquis 5 mg oral tablet 5 mg = 1 tab(s), Oral, BID, # 60 tab(s), Refills(s) 0, [id number], 165, cm, 07/02/23 21:30:00 EST, Height/Length Dosing, 55.7, kg, 07/02/23 21:30:00 EST, Weight Dosing Start Date: 07/11/23 Status: OrderedStart: 26-75-1234nrrh 1 tablet by mouth twice dailyEliquis 5 mg oral tablet 5 mg = 1 tab(s), Oral, BID, # 60 tab(s), Refills(s) 0, [id number], 165, cm, 07/02/23 21:30:00 EST, Height/Length Dosing, 55.7, kg, 07/02/23 21:30:00 EST, Weight Dosing Start Date: 07/11/23 Status: OrderedComment on above:Take 1 tablet by mouth two times a day.Take 5 mg by mouth two times a day. atorvastatin 40 mg oral tablet (20 sources)HMG-CoA Reductase InhibitorStart: 07-05-2023 End: 73-18-1731acvo 1 tablet by mouth once dailyLipitor 40 MG tablet Take 40 mg by mouth Daily 07/05/2023 ActiveComment on above:Take 1 tablet by mouth daily at bedtime.Take 40 mg by mouth once daily.carvedilol 3.125 mg oral tablet (20 sources)alpha-Adrenergic Yolette, beta-Adrenergic BlockerStart: 07-03-2024 carvedilol (Coreg) 6.25 MG tablet 07/03/2024 ActiveStart: 11-02-2023 End: 98-62-0344fefp 1 tablet by mouth in the morningcarvedilol (Coreg) 3.125 MG tablet Take 3.125 mg by mouth in the morning and 3.125 mg in the evening. Take with meals. 08/20/2024 ActiveStart: 40-53-1401ojuc 1 tablet by mouth twice daily at mealtimecarvedilol (COREG) 12.5 mg tablet Take 1 tablet by mouth two times a day with meals. 180 tablet 1 08/31/2023 ActiveStart: 07-05-2023 End: 88-10-1002tgpm 1 tablet by mouth in the morningcarvedilol (Coreg) 3.125 MG tablet Take 3.125 mg by mouth in the morning and 3.125 mg in the evening. Take with meals. 07/05/2023 09/01/2023 Discontinued (Alternate therapy)Start: 07-05-2023 End: 96-63-6200xkwk 1 tablet by mouth twice dailycarvedilol 3.125 mg Tab 3.125 mg = 1 tab(s), Oral, BID, X 14 day(s), # 28 tab(s), Refills(s) 0, Pharmacy: [facility], 165, cm, 10/05/23 18:07:00 EST, Height/Length Dosing, 50.3, kg, 10/05/23 18:07:00 EST, Weight Dosing Start Date: 10/05/23 Stop Date: 10/19/23 Status: Orderedtake 1 tablet by mouth twice daily at mealtime carvedilol (COREG) 6.25 mg tablet Take 6.25 mg by mouth two times a day with meals. ActiveComment on above:Take 1 tablet by mouth two times a day with meals. Take 12.5 mg by mouth.Take 3.125 mg by mouth two times a day with meals. ciprofloxacin 250 mg oral tablet (9 sources)Quinolone AntimicrobialStart: 04-07-2025 End: 78-92-4030jzme 1 tablet by mouth in the morningciprofloxacin (Cipro) 250 MG tablet Indications: Left lower quadrant pain Take 1 tablet (250 mg) bymouth in the morning and 1 tablet (250 mg) before bedtime. Do all this for 7 days. 14 tablet 04/07/2025 04/14/2025 ActiveStart: 16-38-3812Vnzqv 500 mg Tab 500 mg = 1 tab(s), Oral, As Directed, Patient to take 1 tab the day before procedure and the 2nd tab the day of procedure once completed, # 2 tab(s), Refills(s) 0, Pharmacy: [facility] #[id number], 165, cm, 04/26/23 15:23:00 EDT, Height/Length Dosing, 54.7, kg, 04/26/23 15:23:00 EDT, Weight Dosing Start Date: 04/26/23 Status: OrderedStart: 56-93-7441aesk 1 tablet by mouth once dailyCipro 500 mg Tab 500 mg = 1 tab(s), Oral, Daily, Take 1 tablet the day before the procedure and 1 tablet after the procedure, # 2 tab(s), Refills(s) 0, Pharmacy: [facility], 165, cm, 10/03/22 14:34:00 EST, Height/Length Dosing, 54.7, kg, 10/03/22 14:34:00 E... Start Date: 10/14/22 Status: OrderedStart: 30-70-3556zgfl 1 tablet by mouth once dailyCipro 500 mg Tab 500 mg = 1 tab(s), Oral, As Directed, Take 1 tablet day before procedure, and then1 tablet day of procedure after procedure, # 2 tab(s), Refills(s) 0, Pharmacy: [facility], 165, cm, 03/03/22 10:04:00 EDT, Height/Length Dosing, 54, kg, 02/12... Start Date: 03/03/22 Status:Ordereddexamethasone 1 mg/ml / neomycin 3.5 mg/ml / polymyxin b 03760 unt/ml ophthalmic suspension (20 sources)Aminoglycoside Antibacterial, Polymyxin-class Antibacterial, CorticosteroidStart: 71-36-3399zpavymvf-polymyxin-dexAMETHasone (Maxitrol) 3.5-52320-6.1 ophthalmic suspension 10/30/2024 ActiveStart: 16-62-5321tayx 1 drop(s) into the eye(s) four times pxijypejglcgi-dgcamndww-sbpKZGHKjgzzi (Maxitrol) 3.5-83612-9.1 ophthalmic suspension INSTILL 1 DROP intoaffected eye FOUR TIMES DAILY FOR 14 DAYS 10/30/2024 Activedicyclomine hydrochloride 10 mg oral capsule (1 source)AnticholinergicStart: 07-01-2023 End: 13-48-6971vijn 1 capsule by mouth four times dailyBentyl 10 mg Cap 10 mg = 1 cap(s), Oral, QID, X 7 day(s), # 14 cap(s), Refills(s) 0, [id number], 165, cm, 06/30/23 19:37:00 EST, Height/Length Dosing, 55.7, kg, 06/30/23 19:37:00 EST, Weight Dosing Start Date: 07/01/23 Stop Date: 07/08/23 Status: Orderedestradiol 0.1 mg/ml vaginal cream (13 sources)EstrogenStart: 97-22-8231Sgnkeqi 0.1 mg/g Cream 0.5 gm, Vaginal, MonFri, 42.5 gm, Refill(s) 6 Start Date: 04/26/23 Status: OrderedStart: 15-84-8816Tomkmwe 0.1 mg/g Cream 1 gm, Vaginal, Once a day (at bedtime), 42.5 gm, Refill(s) 6, [facility], 165.1, cm, 01/28/23 21:34:00 EDT, Height/Length Dosing, 54.5, kg, 01/28/23 21:34:00 EDT, Weight Dosing Start Date: 03/20/23 Status: OrderedStart: 04-29-6799kpyiscarz 0.1 mg/g vaginal cream 1 gm, Vaginal, MonFri, # 42.5 gm, Refills(s) 6, Pharmacy: [facility], 165, cm, 03/03/22 10:04:00 EDT, Height/Length Dosing, 54, kg, 03/03/22 10:04:00 EDT, Weight Dosing Start Date: 03/03/22 Status: OrderedStart: 02-26-2021 End: 30-74-5503ucaxatnzd (ESTRACE) 0.01 % (0.1 mg/gram) vaginal cream Use 1 g vaginally. 0 02/26/2021 08/28/2023 Discontinued (Course of therapy completed) Start: 97-60-8683bfulubotx 0.1 mg/g vaginal cream 1 gm, Vaginal, MonFri, # 42.5 gm, Refills(s) 6, Pharmacy: [facility], 165, cm, 02/23/21 13:24:00 EDT, Height/Length Dosing, 54, kg, 02/23/21 13:24:00 EDT, Weight Dosing Start Date: 02/26/21 Status: OrderedStart: 10-22-2012 End: 26-97-1699wqleksbed 0.01 % (0.1 mg/g) vaginal cream Use a pea sized drop on finger, once every other day 1 Tube 11 10/22/2012 08/28/2023 Discontinued (Course of therapy completed)Comment on above:Use a pea sized drop on finger, once every other dayUse 1 g vaginally.estradiol 0.1 mg/g vaginal cream (9 sources)Start: 49-37-7946noubwxcpq 0.1 mg/g vaginal cream 1 gm, Vaginal, MonFri, # 42.5 gm, Refills(s) 6, Pharmacy: [facility], 165, cm, 03/03/22 10:04:00 EDT, Height/Length Dosing, 54, kg, 03/03/22 10:04:00 EDT, W eight Dosing Start Date: 03/03/22 Status: OrderedStart: 91-26-4148hgdrqznuq 0.1 mg/g vaginal cream 1 gm, Vaginal, MonFri, # 42.5 gm, Refills(s) 6, Pharmacy: [facility], 165, cm, 02/23/21 13:24:00 EDT, Height/Length Dosing, 54, kg, 02/23/21 13:24:00 EDT, Weight Dosing Start Date: 02/26/21 Status: Ordered famotidine 20 mg oral tablet (20 sources)Histamine-2 Receptor AntagonistStart: 05-14-2025 End: 18-25-8095bwhv 1 tablet by mouth at bedtimefamotidine (Pepcid) 20 MG tablet Indications: Gastroesophageal reflux disease without esophagitis Take 1 tablet (20 mg) by mouth at bedtime 90 tablet 3 05/14/2025 05/14/2026 ActiveStart: 07-03-2024 End: 68-25-7468mtlb 1 tablet by mouth at bedtimefamotidine (Pepcid) 40 MG tablet Indications: Gastroesophageal reflux disease without esophagitis Take 1 tablet (40 mg) by mouth at bedtime 30 tablet 04/07/2025 05/14/2025 Discontinued (Reorder)lactulose 667 mg/ml oral solution (1 source)Osmotic LaxativeStart: 11-22-2023 End: 10-24-3795tkce 13.333 g by mouth once dailylactulose 10 g/15 mL Oral Syrup 13.333 gm = 20 mL, Oral, Daily, X 5 day(s), # 100 mL, Refills(s) 0,Pharmacy: [facility], 165, cm, 11/22/23 16:28:00 EDT, Height/Length Dosing, 49.8, kg, 11/22/23 16:28:00 EDT, Weight Dosing Start Date: 11/22/23 Stop Date: 11/27/23 Status: Orderedlidocaine hydrochloride 0.02 mg/mg topical gel (1 source)Antiarrhythmic, Amide Local AnestheticStart: 06-27-2024 End: 96-81-8105vomxtvlrm urojet 2 % 11 mL topical gel (GLYDO)lisinopril 10 mg oral tablet (11 sources)Angiotensin Converting Enzyme InhibitorStart: 09-26-2023 End: 19-53-3545sqeh 0.5 tablet by mouth once dailylisinopril (ZESTRIL) 10 mg tablet Indications: Non-rheumatic mitral regurgitation , Persistent atrial fibrillation (HCC) , Non-ischemic cardiomyopathy (HCC) , Chronic HFrEF (heart failure with reduced ejection fraction) (HCC) take 1/2 tablet by mouth once daily 45 tablet 12/22/2023 ActiveComment on above:Take 0.5 tablets by mouth once daily.LORazepam 0.5 mg oral tablet (20 sources)BenzodiazepineStart: 2025 End: 19-64-5276wtzt 1 tablet by mouth every eight hours as needed for anxiety and anxiety and anxietyLORazepam (Ativan) 0.5 MG tablet Indications: Anxiety TAKE 1 TABLET BY MOUTH EVERY 8 HOURS NEEDED FOR ANXIETY 90 tablet 04/17/2025 ActiveStart: 57-29-5543dngu 1 tablet by mouth every eight hours as needed for anxiety and anxiety and anxietyLORazepam (Ativan) 0.5 MG tablet Indications: Anxiety Take 1 tablet (0.5 mg) by mouth every 8 (eight) hours if needed for anxiety 90 tablet 01/16/2025 ActiveStart: 12-22-5454grmb 1 tablet by mouth every eight hours as needed for anxiety and anxiety and anxietyLORazepam (Ativan) 0.5 MG tablet Indications: Anxiety Take 1 tablet (0.5 mg) by mouth every 8 (eight) hours if needed for anxiety 90 tablet 01/13/2025 ActiveStart: 11-20-2024 End: 67-45-4187yana 1 tablet by mouth every eight hours as needed for anxiety and anxiety and anxietyLORazepam (Ativan) 0.5 MG tablet Indications: Anxiety TAKE 1 TABLET BY MOUTH EVERY 8 HOURS NEEDED FOR ANXIETY 90 tablet 12/17/2024 01/13/2025 Discontinued (Reorder)Start: 64-56-7800mjhr 1 tablet by mouth every eight hours as needed for anxiety and anxiety and anxietyLORazepam (Ativan) 0.5 MG tablet Indications: Anxiety Take 1 tablet (0.5 mg) by mouth every 8 (eight) hours if needed for anxiety Do not start before November 20, 2024. 90 tablet 11/20/2024 ActiveStart: 10-21-2024 End: 11-09-1390qyrp 1 tablet by mouth every eight hours as needed for anxiety and anxiety and anxietyLORazepam (Ativan) 0.5 MG tablet Indications: Anxiety Take 1 tablet (0.5 mg) by mouth every 8 (eight) hours if needed for anxiety 90 tablet 10/21/2024 11/18/2024 DiscontinuedStart: 17-47-8916kvfm 1 tablet by mouth every eight hours as needed for anxiety and anxiety and anxietyLORazepam (Ativan) 0.5 MG tablet Indications: Anxiety Take 1 tablet (0.5 mg) by mouth every 8 (eight) hours if needed for anxiety 90 tablet 09/23/2024 ActiveStart: 40-74-8591pjhw 1 tablet by mouth every eight hours as needed for anxiety and anxiety and anxietyLORazepam (Ativan) 0.5 MG tablet Indications: Anxiety Take 1 tablet (0.5 mg) by mouth every 8 (eight) hours if needed for anxiety Do not start before August 25, 2024. 90 tablet 08/25/2024 ActiveStart: 69-62-1443lyyd 1 tablet by mouth every eight hours as needed for anxiety and anxiety and anxietyLORazepam (Ativan) 0.5 MG tablet Indications: Anxiety Take 1 tablet (0.5 mg) by mouth every 8 (eight) hours if needed for anxiety Do not start before August 25, 2024. 90 tablet 08/25/2024 ActiveStart: 06-25-2024 End: 50-84-6935vnfi 1 tablet by mouth every eight hours as needed for anxiety and anxiety and anxietyLORazepam (Ativan) 0.5 MG tablet Indications: Anxiety TAKE 1 TABLET BY MOUTH EVERY 8 HOURS NEEDED FOR ANXIETY 90 tablet 07/23/2024 08/20/2024 DiscontinuedStart: 07-10-2023 End: 94-32-5287itvm 1 tablet by mouth every six hours for anxiety and anxiety LORazepam (Ativan) 1 MG tablet Indications: Anxiety Take 1 tablet (1 mg) by mouth every 6 (six) hours. 120 tablet 1 07/10/2023 09/15/2023 DiscontinuedStart: 08-03-2011 End: 69-34-0401GZQgrnoxd (ATIVAN) 0.5 mg Take 0.5 mg by mouth. 0 08/03/2011 08/28/2023 Discontinued (Patient chooses alternative therapy)Start: 12-14-2005 End: 88-86-8011CAJNSO 0.5 MG TAB Take one(1) tablet two(2) times daily. 0 12/14/2005 08/28/2023 Discontinued (Patient chooses alternative therapy)Comment on above:Take one(1) tablet two(2) times daily.Take 1 mg by mouth every 6 hours as needed for anxiety.Take 0.5 mg by mouth.metroNIDAZOLE 500 mg oral tablet (2 sources)Nitroimidazole AntimicrobialStart: 04-07-2025 End: 40-26-3504sgrg 1 tablet by mouth in the morningmetroNIDAZOLE (Flagyl) 500 MG tablet Indications: Left lower quadrant pain Take 1 tablet (500 mg) by mouth in the morning and 1 tablet (500 mg) before bedtime. Do all this for 7 days. 14 tablet 04/07/2025 04/14/2025 Activenitrofurantoin, macrocrystals 25 mg / nitrofurantoin, monohydrate 75 mg oral capsule (3 sources)Nitrofuran AntibacterialStart: 08-12-2024 End: 83-35-6486eoon 1 capsule by mouth in the morningnitrofurantoin, macrocrystal-monohydrate, (Macrobid) 100 MG capsule Indications: Dysuria , Urinary frequency Take 1 capsule (100 mg) by mouth in the morning and 1 capsule (100 mg) before bedtime. Do all this for 5 days. 10 capsule 08/12/2024 08/17/2024 ActiveStart: 10-15-2023 End: 45-77-1808olvcxhqliyowsp monohydrate and macrocrystal 100 mg cap(s) (MACROBID)omeprazole 40 mg delayed release oral capsule (5 sources)Proton Pump InhibitorStart: 09-12-2023 End: 34-70-0970iemc 1 capsule by mouth before mealtimeomeprazole (PriLOSEC) [address] capsule Indications: Gastroesophageal reflux disease without esophagitis Take 1 capsule (40 mg) by mouth in the morning. Take before meals. Do not crush or chew.. 30 capsule 11 09/12/2023 09/11/2024 Activeondansetron 4 mg disintegrating oral tablet (20 sources)Serotonin-3 Receptor AntagonistStart: 07-01-2023 End: 35-12-1166qtmy 1 tablet by mouth every eight hours for nauseaondansetron ODT (Zofran-ODT) 4 MG disintegrating tablet Indications: Gastroesophageal reflux disease with esophagitis, unspecified whether hemorrhage Take 1 tablet (4 mg) by mouth every 8 (eight) hours if needed for vomiting or nausea 20 tablet 12/04/2023 ActiveComment on above:DISSOLVE 1 TABLET ON THE TONGUE EVERY 8 HOURS pantoprazole 40 mg delayed release oral tablet (17 sources)Proton Pump InhibitorStart: 47-85-0685qchr 1 tablet by mouth once dailypantoprazole (ProtoNix) 40 MG EC tablet Take 40 mg by mouth Daily 04/10/2025 ActiveStart: 09-26-2023 End: 30-34-8480hwos 1 tablet by mouth once dailypantoprazole DR (PROTONIX) 40 mg tablet Indications: Non-rheumatic mitral regurgitation , Persistent atrial fibrillation (HCC) , Non-ischemic cardiomyopathy (HCC) , Chronic HFrEF (heart failure with reduced ejection fraction) ([facility]) take 1 tablet by mouth every day 90 tablet 12/22/2023 ActiveComment on above:Take 1 tablet by mouth once daily. polyethylene glycol 3350 38878 mg powder for oral solution (20 sources)Osmotic LaxativeStart: 38-48-0118cxtclkhxpwwv glycol 3350 17 gram/dose powder Take 17 g by mouth once daily as needed. Dissolve dosein 4 - 8 ounces of liquid and take as directed. 510 g 1 08/31/2023 ActiveStart: 17-91-0264ytkl 17 g by mouth once dailypolyethylene glycol 3350 17 gram packet 17 gm, Oral, Daily, # 255 gm, Refills(s) 0, Pharmacy: [facility] #[id number], 165, cm, 07/02/23 21:30:00 EST, Height/Length Dosing, 55.7, kg, 07/02/23 21:30:00 EST, Weight Dosing Start Date: 07/05/23 Status: OrderedComment on above:Take 17 g by mouth once daily as needed. Dissolve dose in 4 - 8 ounces of liquid and take as directed.prednisoLONE acetate 10 mg/ml ophthalmic suspension (20 sources)CorticosteroidStart: 90-94-8791xlobofxgEXKO acetate (Pred-Forte) 1 % ophthalmic suspension 07/31/2024 ActiveStart: 69-78-1791twij 1 drop(s) into the eye(s) three times dailyprednisoLONE acetate (Pred-Forte) 1 % ophthalmic suspension Instill 1 drop into left eye three times a day as directed 07/31/2024 ActivepredniSONE 20 mg oral tablet (3 sources)Start: 11-18-2024 End: 56-96-2352imif 2 tablets by mouth once dailypredniSONE (Deltasone) 20 MG tablet Indications: Acute cough Take 2 tablets (40 mg) by mouth Daily for 5 days 10 tablet 11/18/2024 11/23/2024 Activespironolactone 25 mg oral tablet (20 sources)Aldosterone AntagonistStart: 08-31-2023 End: 58-38-2545plem 0.5 tablet by mouth once dailyspironolactone (ALDACTONE) 25 mg tablet Take a half tablet by mouth once daily. 30 tablet 1 08/31/2023 Active spironolactone (Aldactone) 25 MG tablet Take 12.5 mg by mouth in the morning and 12.5 mg before bedtime. ActiveComment on above:Take a half tablet by mouth once daily.Tobramycin (1 source)Aminoglycoside AntibacterialStart: 12-24-2021 End: 14-50-8236wcmr 1 drop(s) into the eye(s) four times dailytobramycin ophthalmic 0.3% solution 1 drop(s), Eye-Both, QID for 7 day(s), 5 mL, Refill(s) 0, [id number], 165, cm, 12/24/21 17:41:00 EDT, Height/Length Dosing, 54, kg, 12/24/21 17:41:00 EDT, Weight Dosing Start Date: 12/24/21 Stop Date: 12/31/21 Status: OrderedZofran ODT 4 mg Tab-Dis (12 sources)Start: 36-41-5656lvdh 1 tablet by mouth every eight hoursZofran ODT 4 mg Tab-Dis 4 mg = 1 tab(s), Oral, q8hr, # 12 tab(s), Refills(s) 0, [id number], 165, cm, 06/30/23 19:37:00 EST, Height/Length Dosing, 55.7, kg, 06/30/23 19:37:00 EST, Weight Dosing Start Date: 07/01/23 Status: Ordered Completed/Discontinued Medications MedicationDrug Class(es)DatesSig (Normalized)Sig (Original)aspirin 81 mg delayed release oral tablet (14 sources)Platelet Aggregation Inhibitor, Nonsteroidal Anti-inflammatory Drug Start: 07-05-2023 End: 04-77-6448ksio 1 tablet by mouth onceaspirin 81 MG EC tablet Take 81 mg by mouth 1 (one) time. 07/05/2023 09/06/2023 DiscontinuedComment on above:Take 81 mg by mouth once daily.azithromycin 250 mg oral tablet (12 sources)Macrolide AntimicrobialStart: 11-18-2024 End: 39-77-7095oxlcncyekhte (Zithromax) 250 MG tablet Indications: Acute cough Take 2 tabs PO x 1 day then 1 tab PO daily x 4 days 6 tablet 11/25/2024 12/17/2024 Discontinueddigoxin 0.125 mg oral tablet (20 sources)Cardiac GlycosideStart: 09-06-2023 End: 50-18-3991oemv 0.5 tablet by mouth in the morning, then take 0.5 tablet by mouth once dailydigoxin (Lanoxin) 125 MCG tablet Indications: Systolic congestive heart failure, unspecified HF chronicity (CMS/HCC) Take 0.5 tablets (62.5 mcg) by mouth in the morning. Take 1/2 a tab daily. 45 tablet 09/06/2023 07/01/2024 Discontinued (Therapy completed)Start: 98-31-4680lcjtpzj (LANOXIN) 125 mcg (0.125 mg) tablet Take HALF tablet by mouth daily (not one complete tablet) 30 tablet 1 08/31/2023 ActiveStart: 07-05-2023 End: 62-04-6359vfwfxbs (Lanoxin) 125 MCG tablet Take 125 mcg by mouth. 07/05/2023 09/01/2023 Discontinued (Alternate therapy)Start: 93-84-8298djxx 1 tablet by mouth once dailydigoxin 125 mcg (0.125 mg) Tab 125 mcg = 1 tab(s), Oral, Daily, # 60 tab(s), Refills(s) 0, Pharmacy: [id number], 165, cm, 07/02/23 21:30:00 EST, Height/Length Dosing, 55.7, kg, 07/02/23 21:30:00 EST, Weight Dosing Start Date: 07/05/23 Status: OrderedComment on above:Take HALF tablet by mouth daily (not one complete tablet)Take 125 mcg by mouth once daily.furosemide 40 mg oral tablet (14 sources)Loop DiureticStart: 07-05-2023 End: 23-70-3977tmlw 1 tablet by mouth in the morningfurosemide (Lasix) 40 MG tablet Take 40 mg by mouth in the morning. 07/05/2023 09/12/2023 Discontinued Comment on above:Take 40 mg by mouth once daily.loperamide hydrochloride 2 mg oral capsule (2 sources)Opioid AgonistStart: 10-24-2017 End: 81-08-4397ihil 2 capsules by mouth onceloperamide (IMODIUM) 2 mg cap(s) Indications: Screening for colon cancer Take 2 capsules by mouth one time only for 1 dose. Take one hour after last bowel movement 2 capsule 0 10/24/2017 08/28/2023 Discontinued (Course of therapy completed)Comment on above:Take 2 capsules by mouth one time only for 1 dose. Take one hour after last bowel movementlosartan potassium 25 mg oral tablet (14 sources)Angiotensin 2 Receptor BlockerStart: 07-05-2023 End: 44-21-2631tokn 1 tablet by mouth in the morninglosartan (Cozaar) 25 MG tablet Take 25 mg by mouth in the morning. 07/05/2023 09/01/2023 Discontinued (Discontinued by another clinician)Comment on above:Take 25 mg by mouth once daily.metoprolol 1 mg/mL Inj (1 source)Start: 07-07-2023 End: 87-26-5568nygere 5 mg intravenously oncemetoprolol 1 mg/mL Inj 5 mg = 5 mL, Injection, IV Push, Once, Stop date 07/07/23 10:02:18 AM EST, STAT, Start date 07/07/23 9:41:00 AM EST, 07/07/23 9:41:00 EST Start Date: 07/07/23 Stop Date: 07/07/23 Status: Completedpenicillin v potassium 250 mg oral tablet (2 sources) End: 27-32-4303vykxwtuwxq V (Veetid) 250 MG tablet Take by mouth 08/11/2023 Discontinuedsodium phosphate, dibasic 35.5 mg/ml / sodium phosphate, monobasic 96.4 mg/ml enema (2 sources)Start: 04-17-2025 End: 29-09-7711hltddd phosphate (Fleet) 7-19 GM/118ML enema Indications: Constipation, unspecified constipation type Insert 1 enema into the rectum 1 (one) time for 1 dose 135 mL 04/17/2025 04/21/2025 Expiredtamsulosin hydrochloride 0.4 mg oral capsule (2 sources)alpha-Adrenergic BlockerStart: 10-18-2012 End: 70-92-9044eqho 1 capsule by mouth once daily at bedtimetamsulosin 0.4 mg Cp24 Take 1 capsule by mouth daily at bedtime. 30 capsule 3 10/18/2012 08/28/2023iscontinued (Course of therapy completed)Comment on above:Take 1 capsule by mouth daily at bedtime.valsartan 80 mg oral tablet (6 sources)Angiotensin 2 Receptor BlockerStart: 08-31-2023 End: 77-24-1107dvot 1 tablet by mouth once dailyvalsartan (DIOVAN) 80 mg tablet Take 1 tablet by mouth once daily. 90 tablet 1 08/31/2023 09/26/2023 Discontinued (Course of therapy completed)Comment on above:Take 1 tablet by mouth once daily. Problems Active Problems Problem ClassificationProblemDateDocumented DateEpisodic/ChronicAdjustment disorders (14 sources)Adjustment disorder with mixed anxiety and depressed mood; Translations: [Adjustment disorder with mixed anxiety and depressed mood]Onset: 575995-26-9874AajeenfJownuur disorders (20 sources)Anxiety; Translations: [Anxiety disorder]Onset: 01-30-2023 Resolved: 443164-22-3422VzcwncuTlbkawb dysrhythmias (20 sources)Unspecified atrial fibrillation; Translations: [Persistent atrial fibrillation]Onset: 09-60-1749BhbvjvqUgmugowujnv and hemorrhagic disorders (2 sources)Thrombophilia; Translations: [Other thrombophilia]56-54-1425Lyeyogm Conduction disorders (8 sources)Encounter for adjustment and management of automatic implantable cardiac defibrillator; Translations: [Presence of automatic (implantable) cardiac defibrillator]Onset: 49-20-6383XjmythdDaophhpzoe heart failure; nonhypertensive (12 sources)Acute systolic heart failure; Translations: [Acute systolic (congestive) heart failure]Onset: 07-04-2023 Resolved: 97-19-0487KklfrreYyzaefzd atherosclerosis and other heart disease (3 sources)Coronary atherosclerosis; Translations: [Atherosclerotic heart disease of [place] coronary artery without angina pectoris]Onset: 07-05-2023 ChronicE Codes: Adverse effects of medical drugs (1 source)Adverse reaction to biological substance; Translations: [Adverse effect of unspecified drugs, medicaments and biological substances, initial encounter]Onset: 97-36-0161JrclnbxuUttzfmzomk disorders (20 sources)Gastroesophageal reflux disease; Translations: [Gastroesophageal reflux disease without esophagitis]Onset: 746979-14-0925JugdzutXphyimhmj hypertension (20 sources)Essential hypertension; Translations: [Essential (primary) hypertension]Onset: 599637-73-1665SnosxwuOpcws valve disorders (20 sources)Non-rheumatic mitral regurgitation ; Translations: [Nonrheumatic mitral (valve) insufficiency]Onset: 64-30-9078ErromnlVgxdnlxguzty with complications and secondary hypertension (4 sources)Hypertensive heart failure; Translations: [Hypertensive heart disease with heart failure]07-25-1679JvivgvzFgnrxbekcjuf; infection of eye (except that caused by tuberculosis or sexually transmitteddisease) (1 source)Toxic conjunctivitis; Translations: [Acute toxic conjunctivitis, bilateral]Onset: 72-87-9840ZfpjrsibZzbkhlyjdd infection (2 sources)Clostridium difficile diarrhea; Translations: [Enterocolitis due to Clostridium difficile, not specified as recurrent]22-42-5646GqpdeuwxOhjkpok and fatigue (20 sources)Chronic fatigue syndrome; Translations: [Chronic fatigue syndrome] Onset: 292614-98-5117SumwmhuPatbvqpcpm disorders (20 sources)Atrophic vaginitis; Translations: [Postmenopausal atrophic vaginitis]Onset: 74-03-2332HynrzbqNiruzxixqvn deficiencies (20 sources)Deficiency of macronutrients; Translations: [Unspecified severe protein-calorie malnutrition]Onset: 290763-63-6594KsptnehTtujc aftercare (1 source)Long-term current use of drug therapy; Translations: [Other usp (current) drug therapy]Onset: 60-20-4837WmspivsoEbrfi aftercare (2 sources)Post-discharge follow-up; Translations: [Encounter for follow-up examination after completed treatment for conditions other than malignant neoplasm]25-45-0156RhyqesgeFbhdo circulatory disease (1 source)Disorder of arteries and arterioles, unspecified; Translations: [Disorder of artery or arteriole (HCC)]Onset: 77-02-9910ZaqciyaNdlqm circulatory disease (2 sources)Presence of other cardiac implants and grafts; Translations: [Presence of other cardiac implants and grafts]Onset: 67-39-4451KzkwxrqXwqzt diseases of kidney and ureters (1 source)Disorder of kidney and/or ureter; Translations: [Disorder of kidney and ureter, unspecified]Onset: 62-82-6154DlrvyvmaUcwsz ear and sense organ disorders (2 sources)Ear sensations - finding; Translations: [Other specified disorders of right ear]39-95-4232OdlcrlomKvvdw gastrointestinal disorders (3 sources)Constipation, unspecified; Translations: [Constipation, unspecified] Onset: 12-97-7845DwpjeglbCqbco injuries and conditions due to external causes (2 sources)Contusion; Translations: [Other injury of unspecified body region, initial encounter]05-59-8268UfmpgyvqXhmym lower respiratory disease (4 sources)Cough; Translations: [Acute cough]90-35-0746IfpgkmecUerio lower respiratory disease (4 sources)Dyspnea on exertion; Translations: [Other forms of dyspnea]04-07-2025 EpisodicOther nervous system disorders (1 source)Tremor; Translations: [Tremor, unspecified]Onset: 44-88-0449Cfqfukxv Other non-traumatic joint disorders (1 source)Pain of right shoulder joint; Translations: [Pain in right shoulder] Onset: 85-38-0536NttayypiQcfdv screening for suspected conditions (not mental disorders or infectious disease) (4 sources)Blood chemistry abnormal; Translations: [Other specified abnormal findings of blood chemistry]Onset: 14-37-5709QqwmobdvOhkbn upper respiratory disease (20 sources)Seasonal allergy; Translations: [Other seasonal allergic rhinitis] Onset: 209346-89-1907HbvjwttTklsxf media and related conditions (2 sources)Finding of fluid behind tympanic membrane; Translations: [Unspecified nonsuppurative otitis media, right ear]53-80-6270XjvbuoelBdmj-; endo-; and myocarditis; cardiomyopathy (except that caused by tuberculosis or sexually transmitted disease) (20 sources)Cardiomyopathy; Translations: [Other cardiomyopathies]Onset: 138301-10-4622RiyvnmdTklimmhrse and visceral atherosclerosis (20 sources)Atherosclerosis of aorta; Translations: [Atherosclerosis of aorta] Onset: 02-21-2018 Resolved: 412741-40-6785VwoiyyqMrwxjede; pneumothorax; pulmonary collapse (1 source)Pleural effusion; Translations: [Pleural effusion, not elsewhere classified]Onset: 67-37-4742ZmmfkjlfSnfzxxmaq by nonmedicinal substances (2 sources)Bee sting; Translations: [Toxic effect of venom of bees, accidental (unintentional), initial encounter]05-15-2727XcrtearfDizoietl of female genital organs (20 sources)Cystocele; Translations: [Uterovaginal prolapse, unspecified]Onset: 099934-05-4091PsupuztWfvakrvm codes; unclassified (1 source)History of cardioversion; Translations: [Personal history of other medical treatment]03-76-1049EweqciiqWyexnqtw codes; unclassified (3 sources)Other specified postprocedural states; Translations: [H/O major abdominal surgery]Onset: 72-09-3792KvusqbzrHjyvpdfv codes; unclassified (2 sources)Body mass index 20-24 - normal; Translations: [Body mass index (BMI) 22.0-22.9, adult]68-58-9464PnncjlzsSzcyxwtctip; intervertebral disc disorders; other back problems (1 source)Low back pain; Translations: [Low back pain, unspecified]Onset: 55-22-9758XgsoueaoKqugqcmkkzy injury; contusion (2 sources)Contusion of forearm; Translations: [Contusion of right forearm, initial encounter]Onset: 91-95-1175CxenzuceRthacbjyrfty (20 sources)Finding of sensation of -06-6232Yjosjqcuzmou (2 sources)Longstanding persistent atrial fibrillation; Translations: [Longstanding persistent atrial fibrillation]Onset: 43-94-1292Whtswidg veins of lower extremity (2 sources)Pain due to varicose veins of lower extremity; Translations: [Varicose veins of unspecified lower extremity with pain]Onset: 06-13-2022 EpisodicViral infection (1 source)Viral disease; Translations: [Viral infection, unspecified]Episodic Past or Other Problems Problem ClassificationProblemDateDocumented DateEpisodic/ChronicAbdominal pain (20 sources)Suprapubic pain; Translations: [Abdominal pain]Onset: 04-12-2023 Resolved: 091637-79-1797VwlqefnsZxbuhncfinitm symptoms and ill-defined conditions (20 sources)Delay when starting to pass urine; Translations: [Dysuria]Onset: 09-26-2012 Resolved: 056933-36-0529QkywgkkqGsbqkiuitp obstruction without hernia (20 sources)Intestinal obstruction; Translations: [Unspecified intestinal obstruction, unspecified as to partial versus complete obstruction]Onset: 273037-45-0051ZimeklpmAhnmidlgeiett mental health disorders (20 sources)Transient insomnia; Translations: [Adjustment insomnia]Onset: 948786-85-8497GgetudklKrxcltpwjgtvo gastroenteritis (20 sources)Acute gastroenteritis; Translations: [Noninfective gastroenteritis and colitis, unspecified]Onset: 04-12-2023 Resolved: 208541-80-0771QhvlenvbLjkm wounds of head; neck; and trunk (20 sources)Superficial laceration of face; Translations: [Laceration without foreign body of other part of head, initial encounter]Onset: 04-12-2023 Resolved: 589470-81-5855OfyoqsgvUezkf aftercare (20 sources)Long-term current use of anticoagulant; Translations: [FPC (current) use of 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s]Onset: 051052-47-8237GzpjnqsrCppcq circulatory disease (1 source)Other specified symptoms and signs involving the circulatory and respiratory systems; Translations:[Other specified symptoms and signs involving the circulatory and respiratory systems]Onset: 40-26-9633WrclomkjFhhmy diseases of bladder and urethra (20 sources)Urethral stricture; Translations: [Other urethral stricture, female] Onset: 922497-10-8199NmsljsiaEtwol diseases of bladder and urethra (1 source)Unspecified urethral stricture, female; Translations: [Stricture of female urethra, unspecified stricture type]Onset: 15-34-1446GkeokbjpXgxcr diseases of kidney and ureters (20 sources)Kidney lesion; Translations: [Disorder of kidney and ureter, unspecified]Onset: 665194-94-7073CqwrzpjpZsauu female genital disorders (20 sources)Disorder of vagina; Translations: [Stricture and atresia of vagina] Onset: 041142-82-6067SvzpdjfiLscfh injuries and conditions due to external causes (20 sources)Injury of nose; Translations: [Unspecified injury of nose, initial encounter]Onset: 04-12-2023 Resolved: 684913-96-4147OhxgzfefIezxnuynz and history of mental health and substance abuse codes (20 sources)Ex-smoker; Translations: [Personal history of nicotine dependence] Onset: 740962-96-4195CikhtvvoNlamsjtjtgiw (1 source)Exposure to 2019 novel coronavirus; Translations: [Contact with and (suspected) exposure to COVID19] Results Test NameValueInterpretationReference DxmpiUuulxahv82im 08-88-256378Gmu dr vega, pt can resume all activities as normal starting now. Pt informed She will hold the vaginal dilator for 10 days per pt everything else she will resume.[facility]36on 06-25-074150Ric 1 week follow-up scheduled? yes Has 30 [...] well for weeks prior to the procedure. Manager [employer] instructed pt to avoid strenuous activity or heavy lifting for at least a week. Manager [employer] reached out to labelling machine operator RN regarding the device card and [...] No additional questions or concerns at this time.[facility] HospitalTelephoneon [id number] Harjit Asencio I 1950 F Date Provider Department Center 05/29/2025 [id number] [facility] Family History Problem Relation Age of Onset Coronary artery disease Mother Diabetes Mother Coronary artery disease Father Family Status - Relation Status Age at Mother Father Sister Brother Alive Reason for Visit and Comments: T-ANA follow-up call [Other][facility]30on 49-44-465086Nak patient is Moderately Stable - Low risk of patient condition declining or worsening The patient's goals for the shift include comfort The clinical goals for the shift include stable vitals, safety Problem: Pain - Adult Goal: Verbalizes/displays adequate comfort level or baseline comfort level 05/28/2025 1429 by Ziggy Brown RN Outcome: Adequate for Discharge 05/28/2025 0943 by Ziggy Brown RN Outcome: Progressing Problem: Safety - Adult Goal: Free from fall injury 05/28/2025 1429 by Ziggy Brown RN Outcome: Adequate for Discharge 05/28/2025 0943 by Ziggy Brown RN Outcome: ProgressingNormalUniversity [facility]30The patient is Moderately Stable - Low risk [...] or other facility with appropriate resources Outcome: ProgressingNormalUniversity Fort Hamilton HospitalBASIC METABOLIC PANELon 01-60-6409Ztalk gap [Moles/Vol]11 mmol/LNormal7-20UnLutheran HospitalComment on above:Performed By: #### [id number] #### [facility] [address] [place] [address] USACalcium [Mass/Vol]8.5 mg/dLLow8.6-10.3UnLutheran HospitalComment on above:Performed By: #### [id number] #### [facility] [address] [place] [address] USAChloride [Moles/Vol]102 mmol/DLgicql13-659YsaqslzcagLutheran HospitalComment on above:Performed By: #### [id number] #### [facility] [address] [place] [address] USACO2 [Moles/Vol]27 mmol/KFxyivo36-94NonfrkxvqjLutheran HospitalComment on above:Performed By: #### [id number] #### [facility] [address] [place] [address] USACreatinine [Mass/Vol]0.93 mg/dLNormal0.60-1.20UnLutheran HospitalComment on above:Performed By: #### [id number] #### [facility] [address] [place] [address] USAGLOMERULAR FILTRATION RATE ML/MIN/1.73 SQ M.PUPDYCSAP83.3 mL/min/1.73m*2Normal>60.0UnLutheran HospitalComment on above: Result Comment: [facility]???s estimated glomerular filtration rate (eGFR) will [...] potential consequences that do not disproportionately affect anyone group of individuals.Performed By: #### [id number] #### [facility] [address] [place] [address] USAGlucose [Mass/Vol]211 mg/jGZavv04-843DjwltdylubLutheran HospitalComment on above:Performed By: #### [id number] #### [facility] [address] [place] [address] USAPotassium [Moles/Vol]4.6 mmol/LNormal3.5-5.1UnLutheran HospitalComment on above:Performed By: #### [id number] #### [facility]AP[facility] [address] [place] [address] USASodium [Moles/Vol]135 mmol/LXkg406-475RpmltaiipyLutheran HospitalComment on above:Performed By: #### [id number] #### [facility]AP[facility] [address] [place] [address] USAUrea nitrogen [Mass/Vol]14 mg/dLNormal7-25UnLutheran HospitalComment on above:Performed By: #### [id number] #### [facility]AP[facility] [address] [place] [address] USAUREA NITROGEN/CREATININE (MASS RATIO) IN SER/PLAS15.1Normal [facility] HospitalComment on above:Performed By: #### [id number] #### [facility] [address] [place] [address] USACBC WITH AUTO DIFFERENTIALon 49-50-4008Sieqtbrxd (Bld) [#/Vol]0.01 10*3/uLNormal0.00-0.20UnLutheran HospitalComment on above:Performed By: #### [id number] #### [facility] [address] [place] [address] USABasophils/100 WBC (Bld)0.1 %Normal0.0-1.0UnLutheran HospitalComment on above:Performed By: #### [id number] #### [facility]ERAP[facility] [address] [place] [address] USAEosinophils (Bld) [#/Vol]0.00 10*3/uLNormal0.00-0.50 [facility] HospitalComment on above:Performed By: #### [id number] #### [facility] [address] [place] [address] USAEosinophils/100 WBC (Bld)0.0 %Normal0.0-6.0UnLutheran HospitalComment on above:Performed By: #### [id number] #### [facility] [address] [place] [address] USAErythrocyte distribution width (RBC) [Ratio]14.2 %Normal 11.5-15.0UnLutheran HospitalComment on above:Performed By: #### [id number] #### [facility] [address] [place] [address] USAERYTHROCYTE MEAN CORPUSCULAR HEMOGLOBIN CONCENTRATION (G/DL) BY RSGTNMEKI44.2 g/mBHtfrhg93.0-35.0UnLutheran HospitalComment on above:Performed By: #### [id number] #### [facility]ERAPY [address] [place] [id number] USAHematocrit (Bld) [Volume fraction]38.2 %Fsvety15.0-45.0 [facility] HospitalComment on above:Performed By: #### [id number] #### [facility] [address] [place] [address] USAHemoglobin (Bld) [Mass/Vol]12.3 g/yNOqcfbq83.0-15.0 [facility] HospitalComment on above:Performed By: #### [id number] #### [facility]ER[facility] [address] [place] [address] USAImmature granulocytes (Bld) [#/Vol]0.06 10*3/uLNormal 0.00-0.20UnLutheran HospitalComment on above:Performed By: #### [id number] #### [facility] RES[facility]ERAP[facility] [address] [place] [address] USAImmature granulocytes/100 WBC (Bld)0.5 %Normal0.0-1.0 [facility] HospitalComment on above:Performed By: #### [id number] #### [facility] [address] [place] [address] USALymphocytes (Bld) [#/Vol]0.42 10*3/uLLow1.20-4.00UnLutheran HospitalComment on above:Performed By: #### [id number] #### [facility] RES[facility] [address] [place] [address] USALymphocytes/100 WBC (Bld)3.3 %Low20.0-45.0UnLutheran HospitalComment on above:Performed By: #### [id number] #### [facility]ER[facility] [address] [place] [address] USAMCH (RBC) [Entitic mass]29.9 mcUwolvw08.0-33.0UnLutheran HospitalComment on above:Performed By: #### [id number] #### [facility]ERAP[facility] [address] [place] [address] USAMCV (RBC) [Entitic vol]92.9 wJFilcba24.0-98.0UnLutheran HospitalComment on above:Performed By: #### [id number] #### [facility]AP[facility] [address] [place] [address] USAMonocytes (Bld) [#/Vol]0.65 10*3/uLNormal0.10-1.00UnLutheran HospitalComment on above:Performed By: #### [id number] #### [facility] RES[facility]ER[facility]Y [address] [place] [address] USAMonocytes/100 WBC (Bld)5.1 %Normal5.0-12.0UnLutheran HospitalComment on above:Performed By: #### [id number] #### [facility]ER[facility] [address] [place] [address] USANeutrophils (Bld) [#/Vol]11.71 10*3/uLHigh1.60-7.60 [facility] HospitalComment on above:Performed By: #### [id number] #### [facility] [address] [place] [address] USANeutrophils/100 WBC (Bld)91.0 %High40.0-72.0UnLutheran HospitalComment on above:Performed By: #### [id number] #### [facility]ER[facility] [address] [place] [address] USANRBC (PER 100 WBCS) BY AUTOMATED COUNT0.0 %Clmcal1OhkmxlakriLutheran HospitalComment on above:Performed By: #### [id number] #### [facility]ERAPY [address] [place] [address] USAPLATELETS (10*3/UL) IN BLOOD AUTOMATED INTHE001 10*3/uL Gznkxa308-383JzsvwnhuclLutheran HospitalComment on above:Performed By: #### [id number] #### [facility] [address] [place] [address] USARBC (Bld) [#/Vol]4.11 10*6/uLNormal3.80-5.00UnLutheran HospitalComment on above:Performed By: #### [id number] #### [facility] RES[facility]ERAPY [address] [place] [address] USAWBC (Bld) [#/Vol]12.85 10*3/uLHigh4.00-10.60UnLutheran HospitalComment on above:Performed By: #### [id number] #### [facility] [facility] [address] [place] [address] USACONSULTon 49-38-9550UFNJVEIoopbuifwa planning: to Home Patient came to this admission from their private residence in the community, a planned admission for transcatheter qmfw-vw-ftht repair with TriClip; service writer confirmed no wound care needed from procedureNormalUniversity Fort Hamilton HospitalDSon [id number] Attestation signed by Gabe Martinez MD at [...] Neck: Supple, No thyromegaly (more content not included)...NormalUnLutheran Hospital30on [id number] patient is Moderately Stable - Low risk of patient condition declining or worsening The patient's goals for the shift include comfort, rest The clinical goals for the shift include VSS, safety, cath site checksNoal [facility]30The patient is Moderately Stable - Low risk [...] are monitored and maintained or improved Outcome: ProgressingNormalUniversity of Uvalde Memorial HospitalABG COMPLETE UNSOLICITED RESULTSon 22-59-0940V-GRV0RznqpmEujceijyun [facility] Comment on above:Result Comment: C^IncalculablePerformed By: #### [id number] #### [facility] RESPIRATORY THERAPY [address] [place] [address] USABase excess Calc (Bld) [Moles/Vol]-0.5000 mmol/LNormal -2.0-3.0UnLutheran HospitalComment on above:Performed By: #### [id number] #### [facility] RESPIRATORY THERAPY [address] [place] [address] USACALCIUM IONIZED, ARTERIAL1.18 mmol/LNormal1.13-1.32 [facility] HospitalComment on above:Performed By: #### [id number] #### [facility] RESPIRATORY THERAPY [address] [place] [address] USACARBOXYHEMOGLOBIN, ARTERIAL1.0 %NormalUnLutheran HospitalComment on above:Performed By: #### [id number] #### [facility] RESPIRATORY THERAPY [address] [place] [address] USAChloride [Moles/Vol]104 mmol/IHthymh18-609DqqrzgkinbLutheran HospitalComment on above:Performed By: #### [id number] #### [facility] RESPIRATORY THERAPY [address] [place] [address] USACO2 (Bld) [Partial pressure]39 mm[Hg]Cnflda01-68DhqxcngthgLutheran HospitalComment on above:Performed By: #### [id number] #### [facility] RESPIRATORY THERAPY [address] [place] [address] USADEOXYGENATED HEMOGLOBIN, ARTERIAL0.3 %NormalUnLutheran HospitalComment on above:Performed By: #### [id number] #### [facility] RESPIRATORY THERAPY [address] [place] [address] USAGlucose [Mass/Vol]112 mg/eHWrnz70-54WqulooqaskLutheran HospitalComment on above:Performed By: #### [id number] #### [facility] RESPIRATORY THERAPY [address] [place] [address] USAHCO3 (Bld) [Moles/Vol]24.2 mmol/TFwxfns00.0-28.0UnLutheran HospitalComment on above:Performed By: #### [id number] #### [facility]AT[facility]APY [address] [facility] [address] USAHematocrit (Bld) [Volume fraction]35 %Som23-33UdkshvotsgLutheran HospitalComment on above:Performed By: #### [id number] #### [facility] RESPIRATORY THERAPY [address] [place] [address] USAHemoglobin (Bld) [Mass/Vol]11.8 g/dLNormalUniversProtestant HospitalComment on above:Performed By: #### [id number] #### [facility] RESPIRATORY THERAPY [address] [place] [address] USALACTATE, ARTERIAL0.90 mmol/LNormal0.36-1.39UnLutheran HospitalComment on above:Performed By: #### [id number] #### [facility] RESPIRATORY THERAPY [address] [place] [address] USAMETHEMOGLOBIN, ARTERIAL0.7 %Normal0.0-1.5UnLutheran HospitalComment on above:Performed By: #### [id number] #### [facility] RESPIRATORY THERAPY [address] [place] [address] USAOxygen (Bld) [Partial pressure]152 mm[Hg]Mhsm38-478 [facility] HospitalComment on above:Performed By: #### [id number] #### [facility] RESPIRATORY THERAPY [address] [place] [address] USAOXYGEN SATURATION (%) IN ARTERIAL BLOOD99.7 %Normal 94.0-100.0UnLutheran HospitalComment on above:Performed By: #### [id number] #### [facility] RESPIRATORY THERAPY [address] [place] [address] USAOXYGENATED HEMOGLOBIN IN ARTERIAL BLOOD98.0 %High94.0-97.0 [facility] HospitalComment on above:Performed By: #### [id number] #### [facility] RESPIRATORY THERAPY [address] [place] [address] USAPAO2/JWN6YozmrzCnfspfttbfProtestant HospitalComment on above:Result Comment: C^IncalculablePerformed By: #### [id number] #### [facility] RESPIRATORY THERAPY [address] [place] [address] USAPF RATIONormalUnLutheran HospitalComment on above:Result Comment: C^IncalculablePerformed By: #### [id number] #### [facility] RESPIRATORY THERAPY [address] [place] [address] USAPH OF ARTERIAL BLOOD7.48Bmnxqj7.35-7.45UnLutheran HospitalComment on above:Performed By: #### [id number] #### [facility] RESPIRATORY THERAPY [address] [place] [address] USAPotassium [Moles/Vol]3.7 mmol/LNormal3.4-5.2UnLutheran HospitalComment on above:Performed By: #### [id number] #### [facility] RESPIRATORY THERAPY [address] [place] [address] USASodium [Moles/Vol]135 mmol/UIfr104-436SnftdkvitwLutheran HospitalComment on above:Performed By: #### [id number] #### [facility] RESPIRATORY THERAPY [address] [place] [address] CISTQUEBYEWVTB61.0 ???CNormalUnLutheran HospitalComment on above:Performed By: #### [id number] #### [facility] RESPIRATORY THERAPY [address] [place] [address] USAHPon 21-88-4511VAC&P reviewed. The patient was examined and there [...] the patient today again including risk of [place], stroke, and possible need for conversion to open surgical approach. She understands and agrees to proceed. She signed informed consent.NormalParkview Health Bryan HospitalOrders Only on 98-19-1008Spsnlt [id number] Harjit Asencio I 1950 F Date Provider Department Center 05/27/2025 [id number]-WIZFDYENATHAN TOM [facility] VASC LAB ND HeartVAS Family History Problem Relation Age of Onset Coronary artery disease Mother Diabetes Mother Coronary artery disease Father Family Status - Relation Status Age at Mother Father Sister Brother AliveNormalUniFulton County Health CenterPOCT GLUCOSE METER UNSOLICITED RESULTSon 06-61-5607Tbtkqxv [Mass/Vol]90 mg/jVBkvxcr37-679MkhywkqekoLutheran HospitalComment on above:Order Comment: Waived Testing in the ED is performed under the ED CLIA certificate #[id number].Result Comment: xcbfrr0Fummfwece By: #### [id number] #### [facility] RESPIRATORY THERAPY [address] [place] [address] USATYPE AND SCREENon 97-55-1656PX SCREENNegativeNormal [facility] HospitalComment on above:Performed By: #### [id number] #### [facility] BLOOD BANK ,ABO group Nom (Bld)ONormalUnLutheran HospitalComment on above: Performed By: #### [id number] #### [facility] BLOOD B[facility] ,RH TYPE IN BLOODPositiveNormalUniversProtestant HospitalComment on above:Performed By: #### [id number] #### [facility] BLOOD BANK ,HPon 37-30-7141SKFF Cardiology [facility] Subjective Harjit Asencio is a [...] removed. Patient would like to go to [facility] for cardiac rehab. 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 She is [...] her recent visit with cardiology at [facility] on 09/26/2023 valsartan was stopped and low-dose lisinopril 5 mg once daily was added. The plan was to add Jardiance. There is note of her to being evaluated by CT surgery Dr. Sorto regarding candidacy for cardiac surgery and she was deemed high risk. She was also evaluated at [facility] cardiothoracic [facility]. Initial workup for her mitral valve disease was started. Spironolactone was changed to half tablet twice a day instead of 1 tablet once a day. She was also recommended to start taking digoxin at night instead of the morning. At visit with nm on 10/16/2023 I increased her carvedilol to 6.25 mg twice daily. I asked for a cardiopulmonary excise test. After visit with nm on 10/30/2023 I added Jardiance 10 mg daily to optimize GDMT for systolic heart failure. I also started her on amiodarone to attempt rhythm control. Following that she stopped both medications due to side effects. After visit with nm on 12/01/2023 I referred her to Patty [...] mmHg. She then und (more content not included)...NormalUnLutheran HospitalOffice Visiton 10-10-9811Pcvhmx-up [id number] Harjit Asencio I 1950 F Date Provider Department Center 05/19/2025 RAFAEL PEDERSEN CECILE Davies Family History Problem Relation Age of Onset Coronary artery disease Mother Diabetes Mother Coronary artery disease Father Family Status - Relation Status Age at Mother Father Sister Brother Alive Level of Service:24451 [place] OFFICE/OUTPATIENT ESTABLISHED [facility] [address] [facility] CenterOrders Onlyon 45-43-4445Wgcmuh [id number] Harjit Asencio I 1950 F Date Provider Department Center 05/14/2025 RADHA CHAVEZ [facility] CARD UT HeartVAS Family History Problem Relation Age of Onset Coronary artery disease Mother Diabetes Mother Coronary artery disease Father Family Status - Relation Status Age at Mother Father Sister Brother AliveNormalUniversity Fort Hamilton HospitalUrinalysis macro (dipstick) panel (U)on 50-31-4207Bjmmhccyf, UANegativeNegative - 4(70) +++ mg/dL NOMS HealthcareBlood, UANegativeNegative - 50 Pedro/mcLNOMS HealthcareClarity, UA ClearNOMS HealthcareColor, UAYellowNOMS HealthcareGlucose, UANegativeNegative - 2000(110) ++++ mg/dLNOMS HealthcareKetones, UANegativeNegative - 160(16) ++++ mg/dLNOMS HealthcareLeukocytes, UANegativeNegative - 500+++ Ghislaine/mcLNOMS HealthcareNitrite, UANegativeNegative - PositiveNOMS HealthcarepH, UA75 - 9NOMS HealthcareProtein, UANegativeNegative - 2000(20) ++++ mg/dLNOMS HealthcareSpec Grav, UA1.011 - 1.03NOMS HealthcareUrobilinogen, UA0.20.2 - 12 mg/dLNOMS HealthcareNOMS HealthcareED Clinical Summaryon [id number] Clinical SummaryED Clinical Summary [place] [id number] ED Clinical Summary Person Information Name: HARJIT ASENCIO I Patricia/[facility] Age: 75 Years : 1950 Sex: Female Language: Tongan PCP: Snehal MCMAHON, Hannah De Leon Marital [...] 04/28/2025 01:39:01 04/28/2025 01:39:01 04/28/2025 01:39:01 ADDRESS: [address] [place] [address] [address] [facility] [phone] PHYS DOC NOTES: MEDICAL INFORMATION: Prescriptions Given: [...] (Bacillus Coagulans) oral capsule) 1 Capsules By Mouthevery day for 30 Days. Refills: 0. carvedilol [...] Infection Follow up: With: Address: When: Hannah Snehal [address] [place], [place] [id number] [facility] (eventuosity In 3 days 05/01/2025 Comments: Continue next dose of vancomycin as scheduled. DIAGNOSIS: 1:Accidental medication overdoseNormalFisher Lenoir Medical CenterED Note-Physicianon 97-81-1311NF Note-PhysicianED Note-Physician Basic Information Time Seen: Layton Crawford [...] and Complexity of Problems Differential Diagnosis: [] [facility] Data External documents reviewed: [] My [...] days 05/01/[address] [place] [address]- Business (1) Additional Instructions: Continue next dose [...] (07/21/2023), Cardiac catheterization, combined right and left heart(07/05/2023), Cystourethroscopy with dilation of urethral stricture (10/25/2022), Cystoscopy (02/23/2021), Dilation of urethra (02/01/2019), Cystourethroscopy with dilation of urethral stricture (09/15), colon resection, Corneal implant, Cystoscopy, Dilation of [...] 1-2 times per year, (more content not included)...[facility] AndersonComment on above:Result Comment: Electronically Signed By: Yvette Vasquez, Layton Cazares\.br\Date and Time Signed: 04/28/2503:57 EDTED Patient Summaryon [id number] Patient SummaryED Patient Summary [address] [address] Patient Discharge Instructions Person Information Name: HARJIT ASENCIO I Age: 75 Years Arrival Date: 04/28/2025 00:50:29 Discharge Diagnosis: 1:Accidental medication overdose Primary Care Physician: Hannah Brian MD Provider Information Primary Provider: Layton Crawford M.D. Advanced Visual Display Manager:None The exam and treatment you received in the Emergency Department were for an urgent problem and are not intended as complete care. It is important that you follow up with a doctor, nurse practitioner,or physician???s digital assistant for ongoing care. If your symptoms become worse or you do not improve asexpected and you are unable to reach your usual health care provider, you should return to the Emergency Department. We are available 24 hours a day. HARJIT ASENCIO I has been given the following list of patient education materials, prescriptions and follow-up instructions: Follow-up Instructions: With: Address: When: Hannah Brian [place] [address] Business (1) In 3 days [...] opioids can be used to help relieve nymlygty-qj-pdtkrf pain and are often prescribed following a [...] guidance from the Food and Drug Administration (www.fda.gov/Drugs/ResourcesForYou). ??? Visit www.cdc.gov/drugoverdose to learn about the risks of opioids abuse and overdose. ??? If you believe you may be stru (more content not included)...NormalCleveland Clinic Fairview HospitalLab Miscellaneous-LCon 28-67-4158Rzv MiscellaneousCOMMENT Invalid Interpretation [facility] CenterComment on above:Result Comment: Test Ordered: [id number] C difficile Toxins A+B, EIA C difficile Toxins A+B, EIA Positive [A ] Reference Range: Negative Performed at: [address] [id number] PhD Emily Barclayformed By: #### [id number] #### [facility] [address] [place] [address]B & P EXAM, ROUTINE, REFLEXon 03-49-9946Undtjs 1CommentInvalid Interpretation [facility] CenterComment on above:Result Comment: No ova, cysts, or parasites seen. One negative specimen does not rule out the possibility of a parasitic infection. Performed at: [address] [id number] PhD Emily Barclayformed By: #### [id number] #### [facility] [address] [place] [address]M & P Exam, Routineon 19-52-2692Wef/Para Exam RtFinal report Invalid Interpretation [facility] CenterComment on above:Result Comment: These results were obtained using wet preparation(s) and trichrome stained smear. This test does not include testing for Cryptosporidium parvum, Cyclospora, or Microsporidia. Performed at: [facility] [place] [id number] [place], [place] [id number] PhD Emily FraserPerformed By: #### [id number] #### [facility] [address] [place] [address]W. diff by PCRon 60-54-0255Xtbatznklak difficile by PCRPositive AbnormalNegativeCleveland Clinic Fairview HospitalComment on above:Result Comment: Results Called To Jennifer Alcaraz/Bruce By laquita And Read Back For Confirmation On 04/24/2025 12:20:03 EDT. This test result should be correlated with clinical presentations and medical history by a healthcare provider to determine its clinical significance. Performed By: #### [id number] #### [facility] [address] [place] [address]CZxon PCRon 44-35-8453Iypxi Specimen AcceptableAcceptableNormal [facility] HospitalComment on above:Performed By: #### [id number] #### [facility] [address] [place] [address]Quxwr CancelledNo, PCR to followNoProMedica Memorial HospitalComment on above:Performed By: #### [id number] #### [facility] [address] [place] [address]Mjhnphl Panel by PCRon 20-33-3072Qvqddokttycbw groupNot detectedNoProMedica Memorial HospitalComment on above:Result Comment: Testing was performed utilizing reverse post tensioning ironworker helper (RT), polymerase chain reaction (PCR), and array hybridization to detect specific gastrointestinal microbial nucleic acid gene sequences associated with the following pathogenic bacteria and viruses:Campylobacter Group (composed of C. coli, C. jejuni, and C. ermias), Salmonella species, Shigella species (including S. dysenteriae,S. boydii, S. sonnei and S. flexneri), Vibrio Group (composed of V. cholera and V. parahaemolyticus), Yersinia enterocolitica, Norovirus GI/GII, and Rotavirus A. In addition, EPdetects Shiga toxin 1 gene and Shiga toxin 2 gene virulence markers. Shiga toxin producing E. coli (STEC) typically harborone or both genes that encode for Shiga toxins 1 and 2. Campylobacter group, Salmonella species, Shigella species, Vibrio group, Rotavirus A, Shiga Toxin 1, Shiga Toxin 2, Norovirus GI/GII, and Yersinia enterocolitica were tested by Verigene nulcleic acidtest.Performed By: #### [id number] #### [facility] [address] [place], [place] [address]Crraxgg Panel Intrl QCPassOur Lady of Mercy Hospital - Anderson Comment on above:Result Comment: Testing was performed utilizing reverse post tensioning ironworker helper (RT), polymerase chain reaction (PCR), and array hybridization to detect specific gastrointestinal microbial nucleic acid gene sequences associated with the following pathogenic bacteria and viruses:Campylobacter Group (composed of C. coli, C. jejuni, and C. ermias), Salmonella species, Shigella species (including S. dysenteriae,S. boydii, S. sonnei and S. flexneri), Vibrio Group (composed of V. cholera and V. parahaemolyticus), Yersinia enterocolitica, Norovirus GI/GII, and Rotavirus A. In addition, EPdetects Shiga toxin 1 gene and Shiga toxin 2 gene virulence markers. Shiga toxin producing E. coli (STEC) typically harborone or both genes that encode for Shiga toxins 1 and 2.Performed By: #### [id number] #### [facility] [address] [place] [address]Pxijhfjxw GI/GIINot [facility] Comment on above:Performed By: #### [id number] #### [facility] [address] [place], [place] [address]Svzbfgeka ANot [facility] OhioComment on above:Performed By: #### [id number] #### [facility] [address] [place] [address]Rrzeazbexc speciesNot [facility] Comment on above:Result Comment: This test result should be correlated with clinical presentations and medical history by a healthcare provider to determine its clinical significance.Performed By: #### [id number] #### [facility] [address] [place], [place] [address]Cekxv Tox InterpNegativeOur Lady of [facility] Comment on above:Performed By: #### [id number] #### [facility] [address] [place], [place] [address]Dlktj Toxin 1Not detectedOur Lady of [facility]cy [facility] - [facility] Comment on above:Performed By: #### [id number] #### [facility] [address] [place], [place] [address]Lcryc Toxin 2Not detectedOur Lady of [facility] Comment on above:Performed By: #### [id number] #### [facility] [address] [place], [place] [address]Uyrdiqti speciesNot detectedOur Lady of [facility]cy Hospital - [place] Comment on above:Performed By: #### [id number] #### [facility] [address] [place], [place] [address]Yvwenj GroupNot [facility] [place] Comment on above:Performed By: #### [id number] #### [facility] [address] [place], [place] [address]Isuugunm enterocoliticaNot [facility] OhioComment on above:Performed By: #### [id number] #### [facility] [address] [place], [place] [address]Gjc Miscellaneous-LCon 16-39-5420YqljyyigwyiFemnbaj Interpretation [facility] CenterComment on above:Performed By: #### [id number] #### [facility] [address] [place], [place] [address]Iowf Pmdm2034[address]Luwgknu Interpretation [facility] CenterComment on above:Performed By: #### [id number] #### [facility] [address] [place], [place] [address]Oxcf NameCdiff Toxin EIAInvalid Interpretation [facility] CenterComment on above:Performed By: #### [id number] #### Yen [facility] [address] [place], [place] [address]JWNqj 87-68-0232IW5 [Moles/Vol]26 mmol/LUsqzso00-64HvqgyaCleveland Clinic Fairview HospitalComment on above:Performed By: #### [id number] #### [facility] [address] [place], [place] [address]Abpdo gap [Moles/Vol]11 mmol/LNormal6-16C[facility] Fairview HospitalComment on above:Performed By: #### [id number] #### [facility] [address] [place], [place] [address]LJB/Creat Ratio14 No JeilgAthoaq42-95GoqrfoCleveland Clinic Fairview HospitalComment on above:Performed By: #### [id number] #### [facility] [address] [place], [place] [address]Ypkwmlc [Mass/Vol]9.6 mg/dLNormal8.9-11.1FKnox Community HospitalComment on above:Performed By: #### [id number] #### [facility] [address] [place], [place] [address]Htmeqwax [Moles/Vol]103 mmol/OHdnclh090-912XvrfbbCleveland Clinic Fairview HospitalComment on above:Performed By: #### [id number] #### [facility] [address] [place], [place] [address]Fojyktijcn [Mass/Vol]1.0 mg/dLNormal0.5-1.3FKnox Community HospitalComment on above:Performed By: #### [id number] #### [facility] [address] [place], [place] [address]Ojcihmg [Mass/Vol]136 mg/mDTduvgb21-418XxxcvdCleveland Clinic Fairview HospitalComment on above:Performed By: #### [id number] #### [facility] [address] [place], [place] [address]Ivuhqxytx [Moles/Vol]3.9 mmol/LNormal3.5-5.3FKnox Community HospitalComment on above:Performed By: #### [id number] #### [facility] [address] [place], [place] [address]Wdnuit [Moles/Vol]136 mmol/DYzgbhh055-636UgvuixCleveland Clinic Fairview HospitalComment on above:Performed By: #### [id number] #### [facility] [address] [place], [place] [address]Gbda nitrogen [Mass/Vol]14 mg/dLNormal5-21C[facility] HospitalComment on above:Performed By: #### [id number] #### [facility] [address] [place], [place] [address]YZS w/ Auto Diffon 75-94-4226Cszikpjv Absolute0.0 E9/LNormal 0.0-0.2FKnox Community HospitalComment on above:Performed By: #### [id number] #### [facility] [address] [place], [place] [address]Rmtzmlmyi/100 WBC (Bld)0.7 %Normal0.0-2.0C[facility] Fairview HospitalComment on above:Performed By: #### [id number] #### [facility] [address] [place], [place] [address]Pgh Absolute0.0 E9/LNormal0.0-0.5FKnox Community Hospital Comment on above:Performed By: #### [id number] #### [facility] [address] [place], [place] [address]Xognjducadn/100 WBC (Bld)0.4 %Normal0.0-8.0C[facility] Fairview HospitalComment on above:Performed By: #### [id number] #### [facility] [address] [place], [place] [address]Causlzyzcha distribution width (RBC) [Ratio]14.4 %High10.9-14.2 [facility] HospitalComment on above:Performed By: #### [id number] #### [facility] [address] [place], [place] [address]Cxzshpgqyq (Bld) [Volume fraction]44.9 %Phgoqh87.0-46.0C[facility]view HospitalComment on above:Performed By: #### [id number] #### [facility] [address] [place] [address]Gjhdhksybi (Bld) [Mass/Vol]14.8 g/tLVsuzks53.0-16.0[facility] HospitalComment on above:Performed By: #### [id number] #### [facility] [address] [place] [address]Pbhfj Absolute0.7 E9/LLow1.0-4.0[facility] Comment on above:Performed By: #### [id number] #### [facility] [address] [place] [address]Ijjtaepvokj/100 WBC (Bld)10.8 %Low14.0-50.0Cleveland [facility] HospitalComment on above:Performed By: #### [id number] #### [facility] [address] [place] [address] 09120DEO (RBC) [Entitic mass]29.8 wlCmaiwy60.0-34.0[facility] HospitalComment on above:Performed By: #### [id number] #### [facility] [address] [place] [address] 67888IRKB (RBC) [Mass/Vol]33.0 g/gZAolcge26.4-36.0[facility] HospitalComment on above:Performed By: #### [id number] #### [facility] [address] [place] [address] 82930VSP (RBC) [Entitic vol]90.2 wIUilctl70.0-100.0[facility] HospitalComment on above:Performed By: #### [id number] #### [facility] [address] [place] [address] 68589Zrcu Absolute0.4 E9/LNormal0.2-1.0[facility] Comment on above:Performed By: #### [id number] #### [facility] [address] [place], [place] [address]Ttisjczkq/100 WBC (Bld)5.2 %Normal4.0-14.0[facility] HospitalComment on above:Performed By: #### [id number] #### [facility] [address] [place], [place] [address]Gfeacz Absolute5.5 E9/LNormal2.0-7.5FKnox Community Hospital Comment on above:Performed By: #### [id number] #### [facility] [address] [place], [place] [address]Uxsdzu Auto82.9 %High36.0-75.0[facility] Comment on above:Performed By: #### [id number] #### [facility] [address] [place] [address] 74360Ufoxxnqq026.0 E9/RPgsskn673.0-500.0[facility] Comment on above:Performed By: #### [id number] #### [facility] [address] [place] [address] 35287Rlzgapoe mean volume (Bld) [Entitic vol]8.2 fLNormal6.4-10.8 [facility] HospitalComment on above:Performed By: #### [id number] #### [facility] [address] [place] [address] 14466MHT7.0 E12/LNormal4.3-5.9[facility] HospitalComment on above:Performed By: #### [id number] #### [facility] [address] [place] [address] 16718MTO0.7 E9/LNormal4.0-11.0[facility] HospitalComment on above:Performed By: #### [id number] #### [facility] [address] [place] [address] 27311ZH Abdomen/Pelvis w/o Contraston 92-58-1283LI Abdomen/Pelvis w/o ContrastExam Date/Time: 04/19/2025 13:53 EDT Reason for Exam: [...] Gregg Joseph DO Transcribed by: ARAVIND Technologist: [facility] Clinical Summaryon [id number] Clinical SummaryED Clinical Summary [place] [id number] ED Clinical Summary Person Information Name: HARJIT ASENCIO I [place] Age: 75 Years : 1950 Sex: Female Language: Tongan PCP: Snehal MCMAHON, Hannah De Leon Marital [...] 04/19/2025 15:11:52 04/19/2025 15:11:52 04/19/2025 15:11:52 ADDRESS: [address] [place] [phone] PHYS DOC NOTES: MEDICAL INFORMATION: Prescriptions Given: New Medications [address], [address] [place], [place] [id number], [phone] bacillus coagulans-inulin (Probiotic Formula (Bacillus Coagulans) oral capsule) 1 Capsules By Mouthevery day for 30 Days. Refills: 0. Medications to Continue Taking That Have Changed [address], [address] [place], [place] [id number], [phone] START: ondansetron (Zofran ODT 4 mg Tab-Dis) [...] up: With: Address: When: Ana Turner [address] [facility], [address] [place] [phone] [employer] () In 3 days 04/22/2025 Comments: Follow-up with GI for further evaluation With: Address: When: Hannah Brian [address] [place] [phone] [facility] () In 3 days 04/22/2025 Comments: Call [...] or worsening symptoms. DIAGNOSIS: Abdominal pain, acute; DiarrheaNormalFisher Lenoir Medical CenterED Note-Physicianon [id number] Note-PhysicianED Note-Physician Basic Information Time Seen: Jayson Calloway [...] for the last week. She has not seenher primary care doctor. She reports several ER [...] for this. Patient has been seen at [facility] twice for this. She had labs [...] Turner In 3 days 04/22/2025 EDT [address] [facility], [address] [place] [phone] Business (1) Additional Instructions: Follow-up with GI for further evaluation Hannah Brian In 3 days 04/22/[address] [place] [address]- Business (1) Additional Instructions: Call the office of your primary care doctor to arrange for follow-up within the above-stated timeframe. Follow-up with your primary care doctor about this ED visit. You should review your labs, imaging, and diagnoses from this ED visit with your primary care physician. There are occasionally non-emergent fi (more content not included)...[facility] - AndersonComment on above:Result Comment: Electronically Signed By: Jayson Calloway DO\.br\Date and Time Signed: 04/19/25 16:47 EDTED Patient Summaryon [id number] Patient SummaryED Patient Summary [place] [id number] Patient Discharge Instructions Person Information Name: HARJIT ASENCIO I Age: 75 Years Arrival Date: 04/19/2025 09:40:51 Discharge Diagnosis: Abdominal pain, acute; Diarrhea Primary Care Physician: Hannah Brian MD Provider Information Primary Provider: Jayson Calloway DO Advanced Visual Display Manager:None The exam and treatment you received in the Emergency Department were for an urgent problem and are not intended as complete care. It is important that you follow up with a doctor, nurse practitioner,or physician???s digital assistant for ongoing care. If your symptoms become worse or you do not improve asexpected and you are unable to reach your usual health care provider, you should return to the Emergency Department. We are available 24 hours a day. HARJIT ASENCIO I has been given the following list of patient education materials, prescriptions and follow-up instructions: Follow-up Instructions: With: Address: When: Ana Turner [address] [place] [address], [address] [place] [phone] [facility] () In 3 days 04/22/2025 Comments: Follow-up with GI for further evaluation With: Address: When: Hannah Brian [address] [place] [phone] [facility] () In 3 days 04/22/2025 Comments: Call [...] opioids can be used to help relieve arjxjbcn-ws-fpauao pain and are often prescribed following a [...] prescription opioids. o Ta (more content not included)...NormalCleveland Clinic Fairview HospitalExtra Blueon 11-56-8839Oqmo Collected PlasmaYesInvalid Interpretation CodeCleveland Clinic Fairview HospitalComment on above:Performed By: #### [id number] #### [facility] [address] [place], [place] [address]Sro Func Panelon 59-41-1072Wtsfmsr [Mass/Vol]4.4 g/dLNormal 3.3-5.0[facility] HospitalComment on above:Performed By: #### [id number] #### [facility] [address] [place], [place] [address]Frxffif/Globulin [Mass ratio]1.6 {ratio}Normal1.1-2.2FKnox Community HospitalComment on above:Performed By: #### [id number] #### [facility] [address] [place], [place] [address]Zck Phos59 Int._Unit/STighwn63-04JnuttlCleveland Clinic [facility] Comment on above:Performed By: #### [id number] #### [facility] [address] [place], [place] [address]GBY31 Int._Unit/LNormal6-46[facility] HospitalComment on above:Performed By: #### [id number] #### [facility] [address] [place], [place] [address]AYL10 Int._Unit/LNormal5-43[facility] HospitalComment on above:Performed By: #### [id number] #### [facility] [address] [place], [place] [address]Lzvd Direct0.1 mg/dLNormal0.0-0.4FKnox Community Hospital Comment on above:Performed By: #### [id number] #### [facility] [address] [place], [place] [address]Oqze Indirect1.0 mg/dLHigh0.1-0.9[facility] Comment on above:Performed By: #### [id number] #### [facility] [address] [place], [place] [address]Ydng Total1.1 mg/dLNormal0.0-1.1FKnox Community Hospital Comment on above:Performed By: #### [id number] #### [facility] [address] [place], [place] [address]Wdirwwxx (S) [Mass/Vol]2.7 g/dLNormal1.4-4.0[facility] HospitalComment on above:Performed By: #### [id number] #### [facility] [address] [place], [place] [address]Qwrkakj [Mass/Vol]7.1 g/dLNormal6.0-7.8[facility] HospitalComment on above:Performed By: #### [id number] #### [facility] [address] [place], [place] [address]Kslgcv Levelon 84-54-5910Fmbwbn Lvl23 unit/AEzlyep41-42LbrydqCleveland Clinic Fairview HospitalComment on above:Performed By: #### [id number] #### [facility] [address] [place], [place] [address]AP with Cult Rflxon 28-61-4172Dktlc (U)Light-YellowNormalYellow [facility] HospitalComment on above:Result Comment: Microscopic readings are only performed on those samples that meet specific criteria set forth by [facility].Performed By: #### [id number] #### [facility] [address] [place], [place] [address]Vsqmrsb (U) [Mass/Vol]NegativeNormalNegativeCleveland Clinic Fairview HospitalComment on above:Performed By: #### [id number] #### [facility] [address] [place], [place] [address]Nnmdusq Ql (U)NegativeNormalNegC[facility] Comment on above:Performed By: #### [id number] #### [facility] [address] [place], [place] [address]DH BloodNegativeNormalNegC[facility] Clinic [facility] Comment on above:Performed By: #### [id number] #### [facility] [address] [place], [place] [address]LO ClarityClearNormalClearCleveland Clinic Fairview HospitalComment on above:Performed By: #### [id number] #### [facility] [address] [facility] [place], [place] [address]MA Leuk EstNegativeNormalNegC[facility] Comment on above:Performed By: #### [id number] #### [facility] [address] [place], [place] [address]MS NitriteNegativeNormalNegC[facility] Clinic [facility] Comment on above:Performed By: #### [id number] #### [facility] [address] [place], [place] [address]KG pH6.5Invalid Interpretation Code5.0-9.0[facility] HospitalComment on above:Performed By: #### [id number] #### [facility] [address] [place], [place] [address]TI ProteinNegativeNormalNegC[facility] Comment on above:Performed By: #### [id number] #### [facility] [address] [place], [place] [address]LD Spec Grav1.005Invalid Interpretation Code1.005-1.030[facility] HospitalComment on above:Performed By: #### [id number] #### [facility] [address] [place], [place] [address]QM UrobilinogenNegativeNormalNegCleveland Clinic Lutheran HospitalComment on above:Performed By: #### [id number] #### [facility] [address] [place], [place] [address]Iksxjveiyktg (U) [Mass/Vol]NegativeNormalNegativeFisher [facility] Pratt HospitalComment on above:Performed By: #### [id number] #### [facility] [address] [place], [place] [address]GW Spec DescClean CatchNormalFormerly Vidant Beaufort Hospitaler [facility] HospitalComment on above:Performed By: #### [id number] #### [facility] [address] [place], [place] [address]lWLLkj 30-33-1203hDHW11 mL/min/1.73 m2Low>=59Fisher [facility] HospitalComment on above:Performed By: #### [id number] #### [facility]en [facility] [address] [place] [address]XQVCpj 16-51-1900LUEJ Attestation signed by Gabe Martinez MD at [...] me. Patient: Harjit Asencio Procedure Information Date/Time: 04/16/251199 Procedure: TRANSESOPHAGEAL ECHO (HAROON) Location: [facility] Vascular Lab Clinical information reviewed: Allergies Meds Physical Exam Airway Mallampati: III Cardiovascular Rhythm: regular Dental Pulmonary Neurological Abdominal Anesthesia Plan ASA 3 other (Conscious sedation) intravenous induction Anesthetic plan and risks discussed with patient. Use of blood products discussed with patient who consented to blood products. Plan discussed with attending and fellow. Additional Equipment RequestsNormalUniversProtestant HospitalHPon 03-37-5524KJ Attestation signed by Gabe [place] MD at [...] there are no changes to the H&P. [facility] HospitalNURSEast [facility] 76-88-2813CFPNATMXQmwaexz swallow study completed and passed. RN educated pt on [...] wheeled off of unit with all of belongings.[facility]erry HospitalUrinalysis macro (dipstick) panel (U)on 26-16-1081Sqdhvabql, UA NegativeNegative - 4(70) +++ mg/dLNOMS HealthcareBlood, UANegativeNegative - 50 Pedro/mcLNOMS HealthcareClarity, UAClearNOMS HealthcareColor, UAYellowNOMS HealthcareGlucose, UANegativeNegative - 2000(110) ++++ mg/dLNOMS Healthcare Ketones, UANegativeNegative - 160(16) ++++ mg/dLNOMS HealthcareLeukocytes, UA NegativeNegative - 500+++ Ghislaine/mcLNOMS HealthcareNitrite, UANegativeNegative - PositiveNOMS HealthcarepH, UA65 - 9NOMS HealthcareProtein, UANegativeNegative - 2000(20) ++++ mg/dLNOMS HealthcareSpec Grav, UA1.0051 - 1.03N[facility] Urobilinogen, UA0.20.2 - 12 mg/dLNOMS HealthcareNOMS Fjwystaltr46sh Patient called saying she forgot to mention [...] for tricuspid valve. Florecita and Leonardo from [facility] rehab made aware.[facility] HospitalHPon 47-68-0593QPFX Cardiology - [facility] Subjective Harjit I Elif is a 75 y.o. 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 The plan was to add Jardiance. There is note of her to being evaluated by CT surgery Dr. Sorto regarding candidacy for cardiac surgery and she was deemed high risk. She was also evaluated at [facility] cardiothoracic surgery. Initial workup for her [...] Eliquis. She has under (more content not included)...NormalParkview Health Bryan HospitalOffice Visiton 45-49-3181Puowaf-up [id number] Harjit Asencio I 1950 F Date Provider Department Center 03/31/2025 RAFAEL PEDERSEN CECILE Davies Family History Problem Relation Age of Onset Coronary artery disease Mother Diabetes Mother Coronary artery disease Father Family Status - Relation Status Age at Mother Father Sister Brother Alive Level of Service:42972 [place] OFFICE/OUTPATIENT ESTABLISHED MOD MDM 30 [facility]36on 12-72-019828Qtybrbnmg to 6.25mg BID [place] [address]on 78-30-018649Zukoomc called reported that she ran out of her carvedilol, discussed with patient to start on Coreg 6.25 mg bid, I also discussed this plan with her primary english composition teacher , patient will have to monitor her blood pressure at home. Yadiel Haines MD PGY-5 internet manager [facility] HospitalTelephoneon [id number] Harjit Asencio I 1950 Provider Department Center 02/11/2025 1314YADIEL BOYER [facility] C[facility] Family History Problem Relation Age of Onset Coronary artery disease Mother Diabetes Mother Coronary artery disease Father Family Status - Relation Status Age at Mother Father Sister [facility]iveAs[facility] 02-10-2025 Follow-[id number] Harjit Asencio I 1950 Provider Department Center 02/10/2025 RFAAEL PEDERSEN CARD [facility] Family History Problem Relation Age of Onset Coronary artery disease Mother Diabetes Mother Coronary artery disease Father Family Status - Relation Status Age at Mother Father Sister Brother Alive Level of Service:09463 [place] OFFICE/OUTPATIENT ESTABLISHED MOD MDM [address] 74-25-770323Pjbzcf, would it be ok for her to hold Eliquis for a few days with her recent MitraClip or does she need to continue and maybe reduce the dose? -Maybe we move forward with Watchman for her after you see her on 02/10?[facility]36George, would it be ok for her to hold Eliquis for a few days with her recent MitraClip or does she need to continue and maybe reduce the dose? -Maybe we move forward with Watchman for her after you see her on 02/10?[facility] 48-55-9529Sjhtra-[id number] Harjit Asencio I 1950 Provider Department Center 01/23/2025 ROSA HOWELLA CARD [facility] Family History Problem Relation Age of Onset Coronary artery disease Mother Diabetes Mother Coronary artery disease Father Family Status - Relation Status Age at Mother Father Sister Brother Alive Level of Service:95982 [place] OFFICE/OUTPATIENT ESTABLISHED MOD MDM 30 MIN Reason for Visit and Comments: Valve Disorder [3372] Atrial Fibrillation [80]NormalUnLutheran Hospital30on 01-15-2025 30The patient is Moderately Unstable - Medium risk [...] are monitored and maintained or improved Outcome: ProgressingNormalUniversProtestant HospitalBASIC METABOLIC PANELon 02-45-0032Bapic gap [Moles/Vol]13 mmol/LNormal7-20UnLutheran HospitalComment on above:Performed By: #### [id number] #### [facility] ([facility]) [address] [place], [place] [address]Pgxirha [Mass/Vol]8.3 mg/dLLow8.6-10.3UnLutheran HospitalComment on above:Performed By: #### [id number] #### [facility] ([facility]) [address] [place], [place] [address]Auknralj [Moles/Vol]106 mmol/JGcuhtv04-271YqhlrtdqbbLutheran HospitalComment on above:Performed By: #### [id number] #### [facility] ([facility]) [address] [place], [place] [address]UA2 [Moles/Vol]19 mmol/OWam59-75PlpzftmugbLutheran HospitalComment on above:Performed By: #### [id number] #### [facility] ([facility]) [address] [place], [place] [address]Tvblbamygh [Mass/Vol]0.84 mg/dLNormal0.60-1.20UnLutheran HospitalComment on above:Performed By: #### [id number] #### [facility] ([facility]) [address] [place] [address]EODLMXBBEF FILTRATION RATE ML/MIN/1.73 SQ M.MDAWGLVYT60.0 mL/min/1.73m*2Normal>60.0UnLutheran HospitalComment on above: Result Comment: The [facility]???s estimated glomerular filtration rate (eGFR) will [...] potential consequences that do not disproportionately affect anyone group of individuals.Performed By: #### [id number] #### [facility] ([facility]) [address] [place] [address]Ghuwici [Mass/Vol]123 mg/sZHted06-878UozuiaaosbLutheran HospitalComment on above:Performed By: #### [id number] #### [facility] ([facility]) [address] [place] [place], [place] [address]Iwhxnwzno [Moles/Vol]4.7 mmol/LNormal3.5-5.1UnLutheran HospitalComment on above:Performed By: #### [id number] #### [facility] ([facility]) [address] [place] [address]Bcgloy [Moles/Vol]133 mmol/UOfy756-571MowfeplmfqLutheran HospitalComment on above:Performed By: #### [id number] #### [facility] ([facility] [address] [place] [address]Lyem nitrogen [Mass/Vol]16 mg/dLNormal7-25UnLutheran HospitalComment on above:Performed By: #### [id number] #### [facility] ([facility]) [address] [place] [address]ACVS NITROGEN/CREATININE (MASS RATIO) IN SER/PLAS19.0Normal [facility] HospitalComment on above:Performed By: #### [id number] #### [facility] ([facility]) [address] [place] [address]EADkb 52-69-8424Yhkyqqizncs distribution width (RBC) [Ratio]13.4 %Rgrzca43.5-15.0UnLutheran HospitalComment on above:Performed By: #### [id number] #### [facility] ([facility]) [address] [place], [place] [address]BNHVLILMPDG MEAN CORPUSCULAR HEMOGLOBIN CONCENTRATION (G/DL) BY FWIODQCXE85.1 g/dLLow32.0-35.0UnLutheran HospitalComment on above:Performed By: #### [id number] #### [facility] ([facility]) [address] [place], [place] [address]Rqewhhqujq (Bld) [Volume fraction]45.2 %High36.0-45.0UnLutheran HospitalComment on above:Performed By: #### [id number] #### [facility] ([facility]) [address] [place], [place] [address]Lqfxiopfby (Bld) [Mass/Vol]13.6 g/oHKsfcbv83.0-15.0UnLutheran HospitalComment on above:Performed By: #### [id number] #### [facility] ([facility]) [address] [place], [place] [address]HOM (RBC) [Entitic mass]30.4 fyRihlwm00.0-33.0UnLutheran HospitalComment on above:Performed By: #### [id number] #### [facility] ([facility]) [address] [place] [address]ZUN (RBC) [Entitic vol]100.9 rDKcgs39.0-98.0UnLutheran HospitalComment on above:Performed By: #### [id number] #### [facility]) [address] [place], [place] [address]SWSBNWYDW (10*3/UL) IN BLOOD AUTOMATED [id number] 10*3/uLNormal 150-400UnLutheran HospitalComment on above:Performed By: #### [id number] #### [facility] [address] [place], [place] [address]HLI (Bld) [#/Vol]4.48 10*6/uLNormal3.80-5.00UnLutheran HospitalComment on above:Performed By: #### [id number] #### [facility] [address] [place], [place] [address]AUN (Bld) [#/Vol]12.19 10*3/uLHigh4.00-10.60UnLutheran HospitalComment on above:Performed By: #### [id number] #### [facility] [address] [place], [place] [address]GDaj 98-54-4022UWBhdgwkpwo Admitted 01/14/2025 for Nonrheumatic mitral valve regurgit* [...] accessory muscle use. Cl (more content not included)...NormalParkview Health Bryan Hospital30on 01-72-058009Piw patient is Moderately Stable - Low risk [...] baseline comfort level Outcome: Progressing Flowsheets (Taken 01/14/2025 5041) Verbalizes/displays adequate comfort level or baseline comfort [...] and behaviors that affect risk of falls [place] fall precautions as indicated by assessment Educate patient/family on patient safety, including physical limitations Instruct patient to call for assistance with activity based on assessment Modify environment to reduce risk of injury Consider OT/PT consult to assist with strengthening/mobility Problem: Discharge Planning Goal: Discharge to home [...] are exacerbated and prevent overall improvement and dischargeNormalUniversity [facility]30The patient is Moderately Unstable - Medium risk [...] are monitored and maintained or improved Outcome: ProgressingNormalUniversity Fort Hamilton HospitalBASIC METABOLIC PANELon 42-97-0318Ceghh gap [Moles/Vol]9 mmol/LNormal7-20UnLutheran HospitalComment on above:Performed By: #### [id number] #### [facility] ([facility] [address] [place] [address]Xhhvpcw [Mass/Vol]8.5 mg/dLLow8.6-10.3UnLutheran HospitalComment on above:Performed By: #### [id number] #### [facility] ([facility] [address] [place] [address]Mdkasxsq [Moles/Vol]107 mmol/IXmaeaz19-868YdcpkxozrgLutheran HospitalComment on above:Performed By: #### [id number] #### [facility] [address] [place] [address]RR3 [Moles/Vol]26 mmol/MNzyovm88-15JnefudwmieLutheran HospitalComment on above:Performed By: #### [id number] #### [facility] ([facility]) [address] [place] [address]Eabrpvapuk [Mass/Vol]0.80 mg/dLNormal0.60-1.20UnLutheran HospitalComment on above:Performed By: #### [id number] #### [facility] ([facility]) [address] [address]PIWYFMDKXT FILTRATION RATE ML/MIN/1.73 SQ M.GSUPFVJJL39.3 mL/min/1.73m*2Normal>60.0UnLutheran HospitalComment on above: Result Comment: The [facility]???s estimated glomerular filtration rate (eGFR) will [...] potential consequences that do not disproportionately affect anyone group of individuals.Performed By: #### [id number] #### [facility] ([facility]) [address] [place], [place] [address]Hqbbxry [Mass/Vol]97 mg/nSChfjzk89-779TabekqrizmLutheran HospitalComment on above:Performed By: #### [id number] #### [facility] ([facility]) [address] [place], [place] [address]Qnzwdlvdo [Moles/Vol]3.9 mmol/LNormal3.5-5.1UnLutheran HospitalComment on above:Performed By: #### [id number] #### [facility] ([facility]) [address] [place], [place] [address]Nsjbvl [Moles/Vol]138 mmol/UJjhjir551-257JhvbflscugLutheran HospitalComment on above:Performed By: #### [id number] #### [facility] ([facility]) [address] [place], [place] [address]Vrho nitrogen [Mass/Vol]11 mg/dLNormal7-25UnLutheran HospitalComment on above:Performed By: #### [id number] #### [facility] ([facility]) [address] [place], [place] [address]PASL NITROGEN/CREATININE (MASS RATIO) IN SER/PLAS13.8Normal [facility] HospitalComment on above:Performed By: #### [id number] #### [facility] ([facility]) [address] [place], [place] [address]IQF WITH AUTO DIFFERENTIALon 96-76-1501Drapmonau (Bld) [#/Vol] 0.03 10*3/uLNormal0.00-0.20UnLutheran HospitalComment on above: Performed By: #### [id number] ####[facility] ([facility])[address] [facility] [place] [place] [place] [place] [address]Lwudjhvwf/100 WBC (Bld)0.6 %Normal0.0-1.0UnLutheran HospitalComment on above:Performed By: #### [id number] ####[facility] ([facility])[address] [place], [place] [address]Mciglghwvhy (Bld) [#/Vol]0.07 10*3/uL Normal0.00-0.50UnLutheran HospitalComment on above:Performed By: #### [id number] ####[facility] ([facility] [place] [address] Eosinophils/100 WBC (Bld)1.4 %Normal0.0-6.0UnLutheran Hospital Comment on above:Performed By: #### [id number] ####[facility] ([facility])[address] [place], [place] [address]Xguoknorahs distribution width (RBC) [Ratio]13.4 % Cicwtb86.5-15.0UnLutheran HospitalComment on above:Performed By: #### [id number] ####[facility] ([facility])[address] [place] [address] ERYTHROCYTE MEAN CORPUSCULAR HEMOGLOBIN CONCENTRATION (G/DL) BY PEICPRGCX81.0 g/zPDbmqln58.0-35.0UnLutheran HospitalComment on above:Performed By: #### [id number] ####[facility] ([facility])[address] [place], [place] [address]Ftklzuimdg (Bld) [Volume fraction]35.8 %Low36.0-45.0UnLutheran HospitalComment on above:Performed By: #### [id number] ####[facility] ([facility])[address] [place], [place] [address]Zvtuwranue (Bld) [Mass/Vol]11.8 g/dL Low12.0-15.0UnLutheran HospitalComment on above:Performed By: #### [id number] ####[facility] ([facility])[address] [place] [address] Immature granulocytes (Bld) [#/Vol]0.02 10*3/uLNormal0.00-0.20UnLutheran HospitalComment on above:Performed By: #### [id number] ####[facility] ([facility])[address] [facility] [place] [address]Hopkzrue granulocytes/100 WBC (Bld)0.4 %Normal0.0-1.0UnLutheran HospitalComment on above: Performed By: #### [id number] ####[facility] ([facility])[address] [place] [address]Qxfyxadblor (Bld) [#/Vol]1.34 10*3/uLNormal1.20-4.00 [facility] HospitalComment on above:Performed By: #### [id number] ####[facility] ([facility])[address] [facility] [place], [place] [address]Djapuktebwe/100 WBC (Bld)27.7 %Osqxdx74.0-45.0UnLutheran HospitalComment on above:Performed By: #### [id number] ####[facility] ([facility])[address] [place], [place] [address]PXG (RBC) [Entitic mass]31.1 hbJmvxzr60.0-33.0UnLutheran HospitalComment on above:Performed By: #### [id number] ####[facility] ([facility])[address] [place], [place] [address]YFU (RBC) [Entitic vol] 94.2 xNHljljk24.0-98.0UnLutheran HospitalComment on above: Performed By: #### [id number] ####[facility] ([facility])[address] [facility] [place]ENTER[place], [place] [address]Zhowsjtis (Bld) [#/Vol]0.40 10*3/uLNormal0.10-1.00UnLutheran HospitalComment on above:Performed By: #### [id number] ####[facility] ([facility])[address] [place], [place] [address]Rbyhbrvmx/100 WBC (Bld) 8.3 %Normal5.0-12.0UnLutheran HospitalComment on above:Performed By: #### [id number] ####[facility] ([facility])[address] [place] [address]Rvbooztvfph (Bld) [#/Vol]2.98 10*3/uLNormal1.60-7.60[facility] HospitalComment on above:Performed By: #### [id number] ####[facility] ([facility])[address] [address]Kfceejwlcjd/100 WBC (Bld)61.6 %Normal 40.0-72.0UnLutheran HospitalComment on above:Performed By: #### [id number] ####[facility] ([facility])[address] [address]MGVP (PER 100 WBCS) BY AUTOMATED COUNT0.0 %Dirsmy9HetslxwwmiLutheran Hospital Comment on above:Performed By: #### [id number] ####[facility] ([facility])[address] [place] [address]ZWSSBULZK (10*3/UL) IN BLOOD AUTOMATED [id number] 10*3/oQHtxkqw521-747KnskklvhkiLutheran HospitalComment on above: Performed By: #### [id number] ####[facility] ([facility])[address] [place] [address]BIF (Bld) [#/Vol]3.80 10*6/uLNormal3.80-5.00UnLutheran HospitalComment on above:Performed By: #### [id number] ####[facility] ([facility])[address] [address]OOQ (Bld) [#/Vol]4.84 10*3/uLNormal4.00-10.60UnLutheran HospitalComment on above: Performed By: #### [id number] ####[facility] ([facility])[address] [place] [address]YGlu 11-16-4829SAR&P reviewed. The patient was examined and there are no changes to the H&P.NormalUnLutheran HospitalPOCT GLUCOSE METER UNSOLICITED RESULTSon 52-30-9749Iotvsmv [Mass/Vol]92 mg/dLNormal 70-105UnLutheran HospitalComment on above:Order Comment: Waived Testing in the ED is performed under the ED CLIA certificate #[id number].Result Comment: pqfwvis1Frknkbcmh By: #### [id number] #### [facility] ([facility]) [address] [place], [place] [address]DQSPVGA-UJHal 92-52-0970XVB IN PPP BY COAGULATION ASSAY1.08 Normal0.90-1.10UnLutheran HospitalComment on above:Result Comment: [facility] RECOMMENDED INR FOR WARFARIN THERAPY CONDITION INR PROPHYLAXIS OF VENOUS THROMBOSIS 2-3 (HIGH-RISK SURGERY) TREATMENT OF VENOUS THROMBOSIS 2-3 TREATMENT OF PULMONARY EMBOLISM 2-3 PREVENTION OF SYSTEMIC EMBOLISM: 2-3 ACUTE MYOCARDIAL INFARCTION TISSUE HEART VALVES VALVULAR HEART DISEASE ATRIAL FIBRILLATION RECURRENT SYSTEMIC EMBOLISM MECHANICAL HEART VALVE 2.5-3.5 FROM: ORAL ANTICOAGULANTS. MECHANISM OF ACTION, CLINICAL EFFECTIVENESS, AND OPTIMAL THERAPEUTIC RANGE. CHEST 1995;108:231S-246S.Performed By: #### [id number] #### [facility] RESPIRATORY THERAPY [address] [place] [address] USAPROTHROMBIN TIME (PT) IN PPP BY COAGULATION ASSAY14.0 WlowdpfVnlltg12.3-14.8UnLutheran HospitalComment on above: Performed By: #### [id number] #### [facility] RESPIRATORY THERAPY [address] [place] [address] USATYPE AND SCREENon 63-78-4410UP SCREENNegativeNormal [facility] HospitalComment on above:Performed By: #### [id number] #### [facility] RESPIRATORY THERAPY [address] [place] [address] USAABO group Nom (Bld)ONRegency Hospital Cleveland EastComment on above:Performed By: #### [id number] #### [facility] RESPIRATORY THERAPY [address] [place] [address] USARH TYPE IN BLOODPositiveNormalUniFulton County Health CenterComment on above:Performed By: #### [id number] #### [facility] RESPIRATORY THERAPY [address] [place] [address] USAOrders Onlyon 19-79-6083Hxzrvv [id number] Elif,Harjit I 1950 F Date Provider Department Center 01/13/2025 40685-RPIDNUSMAN COLE [facility] PAC ND Medical C Family History Problem Relation Age of Onset Coronary artery disease Mother Diabetes Mother Coronary artery disease Father Family Status - Relation Status Age at Mother Father Sister Brother AliveNoCleveland Clinic Mercy HospitalOrders Onlyon 01-09-2025 Orders [id number] Elif,Harjit I 1950 F Date Provider Department Center 01/09/2025 [facility] Problem Relation Age of Onset Coronary artery disease Mother Diabetes Mother Coronary artery disease Father Family Status - Relation Status Age at Mother Father Sister Brother AliveNormalUBerger HospitalOrders Onlyon 01-08-2025 Orders [id number]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 FatherNormalUniversity of Uvalde Memorial HospitaleGFRon 96-79-1183mOSV67 mL/min/1.73 c2Vndzde>=59Fisher [facility]noch Pratt HospitalComment on above:Performed By: #### [id number] #### [facility] [address] [place], [place] [address]NZMOxr 19-78-3473HHQJWvkzfpBsqgpcysi [facility] CNPTOUTREACHon 68-56-6970VMYLZNEDIKVTPifnqyOvdnwmtlv [facility] HealthURINALYSIS, REFLEX MICROSCOPICon 56-64-0489Jstrohfyq Ql (U)NegativeNegativeCleveland Clinic [facility] Clarity (Unsp spec)ClearClearCleveland ClinicColor (U)YellowYellowCleveland Clinic Akron GeneralGlucose Test strip (U) [Mass/Vol]NegativeNegativeC[facility] Clinic [facility] Hemoglobin Ql (U)NegativeNegativeCleveland Clinic Ak[facility] GeneralInterpretation and review of laboratory resultsNormalCleveland ClinicKetones Ql (U)NegativeNegativeCleveland Clinic Ak[facility] GeneralLeukocyte esterase Test strip Ql (U)NegativeNegativeC[facility] Nitrite Ql (U)NegativeNegativeCleveland Clinic Ak[facility] GeneralpH (U)6.0 [pH]NINF - 8.5Cleveland ClinicProtein (U) [Mass/Vol]NegativeNegativeDiley Ridge Medical Centerpecific gravity (U) [Rel density]1.0071.005 - 1.030[facility] GeneralUrobilinogen Ql (U)0.2 EU/dL0.2- 1.0 EU/dLGood Samaritan Hospital ClinicBilirubin Ql (U)NegativeNormalNegative [facility] City HospitalComment on above:Order Comment: Specimen Type: URINE SPECIMENOrdering Facility: [facility] Address:[address] [place], [place] [address]Performed By: #### [id number] ####[facility] LABCLIA [id number] [place] [address] [place] STATES OF AMERICAClarity (Unsp spec)ClearNormalClearLima City HospitalComment on above:Order Comment: Specimen Type: URINE SPECIMENOrdering Facility: [facility] Address:[address] [place], [place] [address]Performed By: #### [id number] ####[facility] LABCLIA [id number] [place] [address] [place] OF AMERICAColor (U)YellowNormal YellowOhio State East Hospital on above:Order Comment: Specimen Type: URINE SPECIMENOrdering Facility: [facility] Address:[address] [place], [place] [address]Performed By: #### [id number] ####[facility] LABCL[facility] [id number] [place] [address] [place] AMERICAGlucose Test strip (U) [Mass/Vol]NegativeNormalNegative [facility] on above:Order Comment: Specimen Type: URINE SPECIMENOrdering Facility: [facility] Address:[address] [place], [place] [address]Performed By: #### [id number] ####[facility] LABCLIA [id number] [place] [address] [place] OF AMERICAHemoglobin Ql (U)NegativeNormalNegThe [facility] on above:Order Comment: Specimen Type: URINE SPECIMENOrdering Facility: [facility] Address:[address] [place] [address] Performed By: #### [id number] ####[facility] LABCLIA [id number] [place] [address] [place] Ketones Ql (U)NegativeNormalNegativeOhio State East Hospital on above: Order Comment: Specimen Type: URINE SPECIMENOrdering Facility: [facility] Address:[address] [place], [place] [address]Performed By: #### [id number] ####[facility] LABCLIA [id number] [place] [id number] [place] OF AMERICALeukocyte esterase Test strip Ql (U)NegativeNormalNegativeOhio State East Hospital on above:Order Comment: Specimen Type: URINE SPECIMENOrdering Facility: [facility] Address:[address] [place], [place] [address]Performed By: #### [id number] ####[facility] LABCLIA [id number] [place] [address] [place] AMERICANitrite Ql (U)Negative NormalNegativeOhio State East Hospital on above:Order Comment: Specimen Type: URINE SPECIMENOrdering Facility: [facility] Address:[address] [place], [place] [address]Performed By: #### [id number] ####[facility] LABIA [id number] [address] STATES OF [facility] MEM[facility]IAL HOSPITALpH (U)6.0 [pH]Normal<8.5CGreene Memorial Hospital Comment on above:Order Comment: Specimen Type: URINE SPECIMENOrdering Facility: [facility] Address:[address] [place] [address] Performed By: #### [id number] ####[facility] LABIA [id number] [address] STATES OF [place] Protein (U) [Mass/Vol]NegativeNormalNegativeOhio State East Hospital on above:Order Comment: Specimen Type: URINE SPECIMENOrdering Facility: [facility] Address:[address] [place], [place] [address]Performed By: #### [id number] ####[facility] LABIA [id number] [place] [address] [place] AMERICASpecific gravity (U) [Rel density]1.559Ldhyrr1.005-1.030[facility] on above: Order Comment: Specimen Type: URINE SPECIMENOrdering Facility: [facility] Address:[address] [place], [place] [address]Performed By: #### [id number] ####[facility] LABIA [id number] STATES OF WY[facility] MEMORIAL HOSPITALUrobilinogen Ql (U)0.2 EU/dLNormal0.2-1.0 EU/dLLima City HospitalComment on above:Order Comment: Specimen Type: URINE SPECIMENOrdering Facility: [facility] Address:[address] [place], [place] [address]Performed By: #### [id number] ####[facility] LABCLIA [id number] [address] STATES OF [facility] Urineon 11-24-2023 Bacteria identified Cx Nom (U)Microbiology PROCEDURE: Urine Culture [R1] SOURCE: U CleanCatch BODY SITE: COLLECTED DATE/TIME: 11/22/2023 16:36 EDT RECEIVED DATE/TIME: 11/22/2023 17:31 EDT START DATE/TIME: 11/22/2023 17:31 EDT FREE TEXT SOURCE: Edel Zhou PA-C, PA-C, Jenna E. FINAL REPORTS Final Report [] Verified Date/Time: 11/24/2023 09:32 EDT 1,000 cfu/ml Mixed skin contaminants Performing Locations R1: This test was performed at: [facility], [address] [place] [address], [address] , , YgpakiTxomcqOur Lady of Mercy Hospital - AndersonComment on above:Performed By: #### [id number], [id number], [id number], [id number], [id number], [id number] #### [facility] [address] [place] [address]BS Draw & Holdon 47-69-3394RV D&HSample drawn for Blood Providence HospitalComment on above:Performed By: #### [id number] #### [facility] [address] [place] [address] 20857QQ Abdomen/Pelvis w/ Contraston 20-23-8011EE Abdomen/Pelvis w/ ContrastExam Date/Time: 11/22/2023 19:58 EDT Reason for Exam: [...] Given? No Oral contrast amount in ml's: 0NormalFisher Hernandez Medical CenterED Note-Physicianon 86-58-2948MZ Note-PhysicianBasic Information Time Seen: Winnie PALMA Edel Radha 11/22/2023 16:32 History of Present Illness 73-year-old female presents with suprapubic pain for the past week. She has been here in the past for constipation. She complains of dysuria. Denies radiation of pain. Denies fever, back pain, n/v/d,shortness of breath or chest pain Patient is [...] imaging. No significant abnormalities. Patient is very ksrr-scb-ihjib with her symptoms and now states to the nurse that she feels better. No acute findings on final read of CTabdomen pelvis with contrast, it does mention mild [...] day(s), # 100 mL, Refills(s) 0, Pharmacy: [facility], 165, cm, 11/22/23 16:28:00 EDT, Height/Length [...] days 11/25/[address] [place] [address]- Additional Instructions: Patient Education Constipation, Adult, Rswq-ph-Xbls Attestation I performed a substantive part of [...] (07/21/2023), Cardiac catheterization, combined right and left heart(07/05/2023), Cystourethroscopy with dilation of urethral stricture (10/25/2022), Cystoscopy (02/23/2021), Dilation of urethra (02/01/2019), Cystourethroscopy with dilation of urethral stricture (09/15), colon resection, Corneal implant, Cystoscopy, Dilation of urethra, Hysterectomy, Tonsillectomy. Medications Inpatient lactulose 20 g/30 mL Oral Syrup, 30 gm= 45 mL, Oral, Once Home aspirin 81 mg Oral EC T (more content not included)...[facility] - AndersonComment on above:Result Comment: Electronically Signed By: Edel Zhou PA-C\.br\Date and Time Signed: 11/22/23 20:45 EDT\.br\Electronically Co- Signed By: Jayson Calloway DO\.br\Date and Time Co-Signed: 11/23/23 07:15 EDTCBC w/ Auto Diffon 29-19-1423Qntqldcqy/100 WBC (Bld)1.1 %Normal0.0-2.0[facility] HospitalComment on above:Performed By: #### [id number] #### [facility] [address] [place], [place] [address]Liqzsyzbn/Leukocytes Auto (Bld) [Pure # fraction]0.1 E9/LNormal 0.0-0.2FKnox Community HospitalComment on above:Performed By: #### [id number] #### [facility] [address] [place], [place] [address]Pnevbsauaua (Bld) [#/Vol]0.0 E9/LNormal0.0-0.5FKnox Community HospitalComment on above:Performed By: #### [id number] #### [facility] [address] [place], [place] [address]Upvztelqhgi/100 WBC (Bld)0.2 %Normal0.0-8.0[facility] HospitalComment on above:Performed By: #### [id number] #### [facility] [address] [place], [place] [address]Epcumnyphpd distribution width (RBC) [Ratio]14.7 %High10.9-14.2 [facility] HospitalComment on above:Performed By: #### [id number] #### [facility] [address] [place], [place] [address]Gwcaletxss (Bld) [Volume fraction]42.0 %Gdvakt41.0-46.0[facility] HospitalComment on above:Performed By: #### [id number] #### [facility] [address] [place], [place] [address]Utdeogzfwu (Bld) [Mass/Vol]13.9 g/xALynhem29.0-16.0[facility] HospitalComment on above:Performed By: #### [id number] #### [facility] [address] [place] [address]Fhmyuykxobj (Bld) [#/Vol]2.1 E9/LNormal1.0-4.0[facility] HospitalComment on above:Performed By: #### [id number] #### [facility] [address] [place] [address]Etwkoytaujn/100 WBC (Bld)25.6 %Eqfvmd68.0-50.0[facility] HospitalComment on above:Performed By: #### [id number] #### [facility] [address] [place], [place] [address]VYJ (RBC) [Entitic mass]30.3 duKpjiar60.0-34.0[facility] HospitalComment on above:Performed By: #### [id number] #### [facility] [address] [place], [place] [address]TCQJ (RBC) [Mass/Vol]33.1 g/qWCbacpy55.4-36.0[facility] HospitalComment on above:Performed By: #### [id number] #### [facility] [address] [place] [address]HNH (RBC) [Entitic vol]91.5 tEAybxwc72.0-100.0[facility] HospitalComment on above:Performed By: #### [id number] #### [facility] [address] [place] [address]Waeuffvoe (Bld) [#/Vol]0.5 E9/LNormal0.2-1.0[facility] HospitalComment on above:Performed By: #### [id number] #### [facility] [address] [place] [address]Wctdbrvdzaa (Bld) [#/Vol]5.5 E9/LNormal2.0-7.5FKnox Community HospitalComment on above:Performed By: #### [id number] #### [facility] [address] [place] [address]Rtogmnhjifg/100 WBC (Bld)66.8 %Ktcgbi32.0-75.0[facility] HospitalComment on above:Performed By: #### [id number] #### [facility] [facility] [address] [place] [address] 38848Goajkvnv mean volume (Bld) [Entitic vol]8.3 fLNormal6.4-10.8 [facility] HospitalComment on above:Performed By: #### [id number] #### [facility] [address] [place] [address] 40164Wvhjrmczf (Bld) [#/Vol]250.0 E9/WIfnlma353.0-500.0[facility] HospitalComment on above:Performed By: #### [id number] #### [facility] [address] [place] [address] 00988NXV (Bld) [#/Vol]4.6 E12/LNormal4.3-5.9[facility] HospitalComment on above:Performed By: #### [id number] #### [facility]en [facility] [address] [place], [place] [address]LDM corrected for nucl RBC Auto (Bld) [#/Vol]8.3 E9/LNormal 4.0-11.0[facility] HospitalComment on above:Performed By: #### [id number] #### [facility] [address] [place], [place] [address]ROUSWHNDEYnxjqnt By: SYSTEM SYSTEM on 47-36-1658Kfqsfwv [Mass/Vol]4.6 g/dLNormal3.3 - 5.0 gm/dLRemisol ChemAlbumin/Globulin [Mass ratio] 1.8 {ratio}Normal1.1 - 2.2Remisol ChemALP [Catalytic activity/Vol]90 [iU]/d Oyyuvj79 - 98 Int._Unit/LRemisol ChemALT No additional P-5'-P [Catalytic activity/Vol]41 [iU]/dNormal6 - 46 Int._Unit/LRemisol ChemAnion gap [Moles/Vol] 13 mmol/LNormal6 - 16 mEq/LRemisol ChemAST [Catalytic activity/Vol]30 [iU]/d Normal5 - 43 Int._Unit/LRemisol ChemBilirubin [Mass/Vol]1.0 mg/dLNormal0.0 - 1.1 mg/dLRemisol ChemCalcium [Mass/Vol]10.0 mg/dLNormal8.9 - 11.1 mg/dLRemisol Chem Chloride [Moles/Vol]99 mmol/VYgc080 - 111 mmol/LRemisol ChemCO2 [Moles/Vol]27 mmol/ZKppooh86 - 31 mmol/LRemisol ChemCreatinine [Mass/Vol]1.0 mg/dLNormal0.5 - 1.3 mg/dLRemisol CqmkgCDP52 mL/min/1.73 m2Low>=59mL/min/1.73 i1Gmvtofz Chem Globulin (S) [Mass/Vol]2.6 g/dLNormal1.4 - 4.0 gm/dLRemisol ChemGlucose [Mass/Vol]114 mg/jITxuvin28 - 199 mg/dLRemisol ChemMagnesium [Mass/Vol]2.0 mg/dL Normal1.3 - 2.4 mg/dLRemisol ChemPotassium [Moles/Vol]4.2 mmol/LNormal3.5 - 5.3 mmol/LRemisol ChemProtein [Mass/Vol]7.2 g/dLNormal6.0 - 7.8 gm/dLRemisol Chem Sodium [Moles/Vol]135 mmol/LVjbvgw446 - 145 mmol/LRemisol RojhGgaxsspo67.30 pg/jFIdhvcz78.10 - 27.10 pg/mLRemisol ChemComment on above:Interpretive Data: The 95% CI (Confidence Interval) PPV (Positive Predictive Value) for myocardial infarction in females is 38 pg/mL, in males 51 pg/mL. The results should be used in conjunction withclinical conditions of myocardial infarction. (Access High Sensitivity Troponin I Instructions For Use, Marlys [place], March 2018)Urea nitrogen [Mass/Vol]20 mg/dLNormal5 - 21 mg/dLRemisol ChemUrea nitrogen/Creatinine [Mass ratio]20 mg/wtMjxbiu35 - 20Remisol ChemCMPon 10-50-7157Ytumzhz [Mass/Vol]4.6 g/dLNormal3.3-5.0[facility] Comment on above:Performed By: #### [id number] #### [facility] [address] [place], [place] [address]Roqvvsf/Globulin (S) [Mass conc ratio]1.5Gyxyjr1.1-2.2FKnox Community HospitalComment on above:Performed By: #### [id number] #### [facility] [address] [place], [place] [address]PHC [Catalytic activity/Vol]90 Int._Unit/IYlusyz74-65TbgohsCleveland Clinic Fairview HospitalComment on above:Performed By: #### [id number] #### [facility] [address] [place], [place] [address]WMF No additional P-5'-P [Catalytic activity/Vol]41 Int._Unit/L Normal6-46[facility] HospitalComment on above:Performed By: #### [id number] #### [facility] [address] [place], [place] [address]Penop gap [Moles/Vol]13 mmol/LNormal6-16[facility] HospitalComment on above:Performed By: #### [id number] #### [facility] [address] [place], [place] [address]ZLT [Catalytic activity/Vol]30 Int._Unit/LNormal5-43[facility] HospitalComment on above:Performed By: #### [id number] #### [facility] [address] [place], [place] [address]Qjnfledtz [Mass/Vol]1.0 mg/dLNormal0.0-1.1FKnox Community HospitalComment on above:Performed By: #### [id number] #### [facility] [address] [place], [place] [address]Xdqlzvk [Mass/Vol]10.0 mg/dLNormal8.9-11.1FKnox Community HospitalComment on above:Performed By: #### [id number] #### [facility] [address] [place], [place] [address]Ntabtzyf [Moles/Vol]99 mmol/JWag023-701MfsunnCleveland Clinic Fairview HospitalComment on above:Performed By: #### [id number] #### [facility] [address] [place], [place] [address]PC7 [Moles/Vol]27 mmol/EEeahrp01-86GgybfqCleveland Clinic [facility] Comment on above:Performed By: #### [id number] #### [facility] [address] [place], [place] [address]Tkdojnipni [Mass/Vol]1.0 mg/dLNormal0.5-1.3FKnox Community HospitalComment on above:Performed By: #### [id number] #### [facility] [address] [place], [place] [address]Kpfyfjhn (S) [Mass/Vol]2.6 g/dLNormal1.4-4.0[facility] HospitalComment on above:Performed By: #### [id number] #### [facility] [address] [place], [place] [address]Lsrhhix [Mass/Vol]114 mg/mBMuiqkb49-539SjvwmaCleveland Clinic Fairview HospitalComment on above:Performed By: #### [id number] #### [facility] [address] [place], [place] [address]Hvadwvmhj [Moles/Vol]4.2 mmol/LNormal3.5-5.3FKnox Community HospitalComment on above:Performed By: #### [id number] #### [facility] [address] [place], [place] [address]Gozvvaq [Mass/Vol]7.2 g/dLNormal6.0-7.8[facility] HospitalComment on above:Performed By: #### [id number] #### [facility] [address] [place], [place] [address]Szteqi [Moles/Vol]135 mmol/ELqzaya978-419DonnlkCleveland Clinic Fairview HospitalComment on above:Performed By: #### [id number] #### [facility] [address] [place], [place] [address]Izny nitrogen [Mass/Vol]20 mg/dLNormal5-21[facility] HospitalComment on above:Performed By: #### [id number] #### [facility] [address] [place], [place] [address]Iywa nitrogen/Creatinine [Mass ratio]20 No MxznlEuteyl86-43 [facility] HospitalComment on above:Performed By: #### [id number] #### [facility] [address] [place], [place] [address]RELVTVOZMLLPmuvjop By: Ally Dinero on 70-31-8506dSNW Coag (PPP) [Time]41.3 sHigh25.1 - 36.5 second(s)[facility] Auto CoagComment on above: Interpretive Data: Parameter 15 days - 4 weeks 1 - [...] the same coagulation reagent and instrumentation as [facility]. Currently there are no coagulation studies available worldwide for children to 14 days, andno normal ranges. Heparin therapeutic range (represented by Anti-Factor Xa activity of 0.2 - 0.4 U/mL) corresponds to PTT of 56.6 - 109.0 sec.INR Coag (PPP) [Relative time]1.37 {INR}Invalid Interpretation CodeCORNERSTONE [facility] Auto CoagComment on above:Interpretive Data: INR results are specifically intended to assess patients stabilized on long-term Anticoagulation therapy suggested INR s Less Intensive Anticoagulation 2.0 3.0 Conventional Range 3.0 4.5PT Coag (PPP) [Time]15.4 sHigh9.4 - 12.5 second(s)[facility] Auto CoagComment on above:Interpretive Data: 15 days - 4 weeks 1 - [...] the same coagulation reagent and instrumentation as [facility]. Currently there are no coagulation studies available worldwide for children to 14 days, andno normal ranges.Consent for Treatmenton 15-43-3066Mqiautu for Treatment [id number]#1.00TIFFNoProMedica Memorial HospitalDischarge Instructionson 08-96-4966Ffarhdolq Instructions [id number]#1.00TIFFNormalEusebiobruce [facility] Clinical Summaryon [id number] Clinical Summary [address] [address] ED Clinical Summary Person Information Name: HARJIT ASENCIO I [place] Age: 73 Years : 1950 Sex: Female Language: Tongan PCP: Hannah Brian MD Marital Status: Visit [...] 11/22/2023 20:57:39 11/22/2023 20:57:39 11/22/2023 20:57:39 ADDRESS: [address] [place] [address] [address] [facility] [id number] PHYS DOC NOTES: MEDICAL INFORMATION: Prescriptions Given: New Medications [facility], [address], [place] [id number], [phone] lactulose (lactulose 10 g/15 mL Oral Syrup) [...] 0. PATIENT EDUCATION INFORMATION: Instructions: Constipation, Adult, Sdrp-re-Neyd Follow up: With: Address: When: Snehal MCMAHON, Hannah [place] [place] [address] In 3 days 11/25/2023 DIAGNOSIS: 1:ConstipationNormalFisher Lenoir Medical CenterED Patient Education Noteon 86-51-2082EP Patient Education NoteGastroenterology Constipation, Adult Constipation is when a person [...] in fat and sugar, such as: ? [place]orese fries. ? Hamburgers. ? Cookies. ? Candy. ? Soda. ? Drink enough fluid to keep your pee (urine) pale yellow. General instructions ? Exercise regularly or as told by your doctor. Try to do 150 minutes of exercise each week. ? Go to the restroom when you feel like you need to poop. Do not hold it in. ? Take xuvg-ewd-izfzwxa and prescription medicines only as told by your doctor. These include any fiber supplements. ? When you poop: ? Do deep breathing while relaxing your lower belly (abdomen). ? Relax your pelvic floor. The pelvic floor is a group of muscles that support the rectum, bladder,and intestines (as well as the uterus in [...] your pee (urine) pale yellow. ? Take xueu-igv-ontgedk and prescription medicines only as told by your doctor. These include any fiber supplements. This information is not intended to replace advice given to you by your health care provider. Make sure you discuss any questions you have with your health care provider. Document Revised: 06/17/2020 Document Reviewed: 06/17/2020 [employer] Patient Education ? 2022 [employer] ED Patient Summaryon [id number] Patient Summary [place] [id number] Patient Discharge Instructions Person Information Name: HARJIT ASENCIO I Age: 73 Years Arrival Date: 11/22/2023 16:16:41 Discharge Diagnosis: 1:Constipation Primary Care Physician: Snehal MCMAHON, Hannah De Leon Provider Information Primary Provider: Jayson Calloway DO Advanced Visual Display Manager:None The exam and treatment you received in the Emergency Department were for an urgent problem and are not intended as complete care. It is important that you follow up with a doctor, nurse practitioner,or physician?s digital assistant for ongoing care. If your symptoms become worse or you do not improve as expected and you are unable to reach your usual health care provider, you should return to the Emergency Department. We are available 24 hours a day. ELIFJERONIMOHARJIT I has been given the following list of patient education materials, prescriptions and follow-up instructions: Follow-up Instructions: With: Address: When: Snehal MCMAHON, Hannah [place] [address] In 3 days 11/25/2023 In the event that this physician does not participate in your insurance network, please consult with your insurance company to find a nearby participating provider. Patient Education Materials: Constipation, Adult, Pvyc-jx-Jddq A MESSAGE TO ALL PATIENTS REGARDING OPIOIDS PRESCRIPTION OPIOIDS: WHAT YOU NEED TO KNOW Prescription opioids can be used to help relieve mwefotva-rh-zrwvis pain and are often prescribed following a [...] and have fewer risks and side effects. Optionsmay include: ? Pain relievers such as acetaminophen, [...] unused prescription opioids: Find your community drug take- back program or [employer] mail-back program, or flush them down the toilet, following guidance from the Food and Drug Administration (www.fda.gov/Drugs/ResourcesForYou). ? Visit www.cdc.gov/drugoverdose to learn about the risks of opioids abuse and overdose. ? If you believe you may be struggling with addiction, tell your health resident care coordinator and ask for guidance or call [facility]S National Helpline at 6-171-241-VFMX. v Source: US Department of Health and Human S (more content not included)... [facility] AndersonHEMATOLOGYOrdered By: SYSTEM SYSTEM on 13-83-6182Yfgmjzdwy/100 WBC (Bld)1.1 %Normal0.0 - 2.0 %Remisol Heme Basophils/Leukocytes Auto (Bld) [Pure # fraction]0.1 E9/LNormal0.0 - 0.2 E9/L Remisol HemeEosinophils (Bld) [#/Vol]0.0 E9/LNormal0.0 - 0.5 E9/LRemisol Heme Eosinophils/100 WBC (Bld)0.2 %Normal0.0 - 8.0 %Remisol HemeErythrocyte distribution width (RBC) [Ratio]14.7 %High10.9 - 14.2 %Remisol HemeHematocrit (Bld) [Volume fraction]42.0 %Onagju69.0 - 46.0 %Remisol HemeHemoglobin (Bld) [Mass/Vol]13.9 g/gNYttomn28.0 - 16.0 gm/dLRemisol HemeLymphocytes (Bld) [#/Vol] 2.1 E9/LNormal1.0 - 4.0 E9/LRemisol HemeLymphocytes/100 WBC (Bld)25.6 %Normal 14.0 - 50.0 %Remisol HemeMCH (RBC) [Entitic mass]30.3 txIziltu04.0 - 34.0 pg Remisol HemeMCHC (RBC) [Mass/Vol]33.1 g/rXYlxtkk25.4 - 36.0 gm/dLRemisol HemeMCV (RBC) [Entitic vol]91.5 jFUovbcp60.0 - 100.0 fLRemisol HemeMonocytes (Bld) [#/Vol]0.5 E9/LNormal0.2 - 1.0 E9/LRemisol HemeMonocytes/100 WBC (Bld)6.3 % Normal4.0 - 14.0 %Remisol HemeNeutrophils (Bld) [#/Vol]5.5 E9/LNormal2.0 - 7.5 E9/LRemisol HemeNeutrophils/100 WBC (Bld)66.8 %Amavrr22.0 - 75.0 %Remisol Heme Platelet mean volume (Bld) [Entitic vol]8.3 fLNormal6.4 - 10.8 fLRemisol Heme Platelets (Bld) [#/Vol]250.0 E9/ZMtucyf571.0 - 500.0 E9/LRemisol HemeRBC (Bld) [#/Vol]4.6 E12/LNormal4.3 - 5.9 E12/LRemisol HemeWBC corrected for nucl RBC Auto (Bld) [#/Vol]8.3 E9/LNormal4.0 - 11.0 E9/LRemisol HemeMagnesiumon 11-22-2023 Magnesium [Mass/Vol]2.0 mg/dLNormal1.3-2.4FKnox Community HospitalComment on above:Performed By: #### [id number] #### Farshad [facility] [address] [place], [place] [address]IM & PTTon 88-13-5444vFQY Coag (PPP) [Time]41.3 second(s)High 25.1-36.5FKnox Community HospitalComment on above:Result Comment: Parameter 15 days - 4 weeks 1 - [...] the same coagulation reagent and instrumentation as [facility]. Currently there are no coagulation studies available worldwide for children to 14 days, andno normal ranges. Heparin therapeutic range (represented by Anti-Factor Xa activity of 0.2 - 0.4 U/mL) corresponds to PTT of 56.6 - 109.0 sec.Performed By: #### [id number] #### Farshad [facility] [address] [place], [place] [address]GRA Coag (PPP) [Relative time]1.37 {INR}Invalid Interpretation CodeFishSinai Hospital of BaltimoreComment on above:Result Comment: INR results are specifically intended to assess patients stabilized on long-term Anticoagulation therapy suggested INR?s ?Less Intensive Anticoagulation? 2.0 ? 3.0 Conventional Range 3.0 ? 4.5Performed By: #### [id number] #### Yen [facility] [address] [place], [place] [address]SG Coag (PPP) [Time]15.4 second(s)High9.4-12.5Fisher [facility] HospitalComment on above:Result Comment: 15 days - 4 weeks 1 - [...] the same coagulation reagent and instrumentation as [facility]. Currently there are no coagulation studies available worldwide for children to 14 days, andno normal ranges.Performed By: #### [id number] #### Farshad [facility] [address] [place], [place] [address]WKS - Preliminary Cat Scan Reporton [id number] - Preliminary Cat Scan [id number]#1.00TIFFNormalCleveland Clinic Fairview HospitalTroponin 0 Hr.on 39-46-8419Shtefjdp24.30 pg/mLNormal .10-27.10[facility] HospitalComment on above:Result Comment: The 95% CI (Confidence Interval) PPV (Positive Predictive Value) for myocardial infa rction in females is 38 pg/mL, in males 51 pg/mL. The results should be used in conjunction with clinical conditions of myocardial infarction. (Access High Sensitivity Troponin I Instructions For Use, Marlys [place], March 2018)Performed By: #### [id number] #### [facility]en [facility] [address] [place], [place] [address]PH with Cult Rflxon 52-30-4695Bsgnlwtqi Ql (U)NegativeNormal NegativeCleveland Clinic Fairview HospitalComment on above:Performed By: #### [id number], [id number], 3306682, 4166317, 2623363, 6794280 #### [facility] [address] [place] [address]Nxpnrvn (U)ClearNormalClearCleveland Clinic [facility] HospitalComment on above:Performed By: #### [id number], [id number], 3032308, 9712688, 3872822, 1995823 #### [facility] [address] [place] [address]Eeksq (U)ColorlessAbnormalYellowCleveland Clinic [facility] Comment on above:Result Comment: Microscopic readings are only performed on those samples that meet specific criteria set forth by [facility].Performed By: #### [id number], [id number], 5492060, 1989796, 2500599, 1651669 #### [facility] [address] [place] [address]Onqbphbmiu cells.squamous Auto (Urine sed) [#/Area]3-1Yfqpus0-6 [facility] HospitalComment on above:Performed By: #### [id number], 94219995, 6371878, 2064594, 1720366, 4117220 #### [facility] [address] [place] [address]Ggweoth Ql (U)NegativeNormalNegC[facility] Clinic [facility] Comment on above:Performed By: #### 1356400, 71293014, 0715243, 9429892, 9214119, 7932162 #### [facility] [address] [place] [address]Musphwjxgr Auto test strip (U) [Mass/Vol]NegativeNormalNegative [facility] HospitalComment on above:Performed By: #### [id number], 05972927, 8767695, 1335086, 0457049, 4726788 #### [facility] [address] [place] [address]Fpevhuq Auto test strip Ql (U)NegativeNormalNegativeCleveland Clinic [facility] HospitalComment on above:Performed By: #### 6373981, 45325939, 0364011, 5225826, 4061116, 3716999 #### [facility] [address] [place] [address]Kllqxvxrl esterase Auto test strip Ql (U)75 Ghislaine/uLAbnormal NegativeCleveland Clinic [facility]view HospitalComment on above:Performed By: #### 4722010, 25369231, 6655631, 2123246, 9176863, 5842298 #### [facility] [address] [place] [address]Pxbnk Auto Ql (U)NegativeNormalNegativeC[facility] Clinic [facility] HospitalComment on above:Performed By: #### 3108711, 63041174, 9730374, 7529459, 1392802, 1450872 #### [facility] [address] [place] [address]Fnlyfel Auto test strip Ql (U)NegativeNormalNegativeCleveland Clinic [facility] HospitalComment on above:Performed By: #### 7363852, 85125981, 6492020, 9212282, 0540177, 0309177 #### [facility] [address] [place] [address] 49356hC (U)7.0 [pH]Invalid Interpretation Code5.0-9.0[facility] HospitalComment on above:Performed By: #### 8853763, 49036687, 5837979, 7997630, 2680986, 9980423 #### [facility] [address] [place] [address]Lmdthgw Ql (U)NegativeNormalNegativeC[facility] Comment on above:Performed By: #### 3954686, 67232994, 4694994, 0991974, 6351877, 6404879 #### [facility] [address] [place] [address]GNA Ql (U)2-3Nvsnew2-8Fcrgtv [facility] HospitalComment on above:Performed By: #### 0106621, 27349649, 9031876, 0290672, 2980233, 1843901 #### [facility] [address] [place] [address]Xiqwwbwh gravity (U) [Rel density]1.004Invalid Interpretation Code1.005-1.030[facility] HospitalComment on above:Performed By: #### 9320064, 72360479, 2881078, 4438128, 9180863, 4797994 #### [facility] [address] [place], [place] [address]Zbeylgrimqsb (U) [Mass/Vol]NegativeNormalNegativeC[facility] Clinic [facility] HospitalComment on above:Performed By: #### 4826104, 43992094, 7446849, 2027704, 7032674, 4950041 #### [facility] [address] [place], [place] [address]IXX Auto (Urine sed) [#/Area]2-3Pbdiac2-7Ylteeu [facility] HospitalComment on above:Performed By: #### 9663849, 79075575, 2893892, 0788904, 9338796, 2816029 #### [facility] [address] [place], [place] [address]Boeu of Urine collection methodClean CatchNoProMedica Memorial HospitalComment on above:Performed By: #### 1734912, 16296625, 6537204, 5257660, 9733058, 7127075 #### [facility] [address] [place], [place] [address]BWJGIWIGLQWtltmqo By: SYSTEM SYSTEM on 16-25-2753Jmkyvzknv Ql (U)NegativeNormalNegativemg/dLCORNERSTONE [facility] UA Auto SSClarity (U)Clear (11/22/23 4:36 PM)NormalClearFTM UA Auto SSColor (U)Colorless 1 *ABN* (11/22/23 4:36 PM)Invalid Interpretation CodeYellowCORNERSTONE SPECIALTY [facility]OS[facility] UA Auto SSComment on above:Interpretive Data: Microscopic readings are only performed on those samples that meet specific criteria set forth by [facility].Epithelial cells.squamous Auto (Urine sed) [#/Area]0-2 graded/HPF Normal0-2graded/HPFCORNERSTONE [facility] UA Auto SSGlucose Ql (U)NegativeNormalNegativemg/dLCORNERSTONE [facility]TY [facility] UA Auto SSHemoglobin Auto test strip (U) [Mass/Vol]NegativeNormalNegativemg/dL [facility] UA Auto SSKetones Auto test strip Ql (U)NegativeNormalNegativemg/dLCORNERSTONE SPECIALTY [facility] UA Auto SSLeukocyte esterase Auto test strip Ql (U)75 Ghislaine/uL Ghislaine/uLInvalid Interpretation CodeNegativeLeu/uLCORNERSTONE [facility] UA Auto SSMucus Auto Ql (U)NegativeNormal Negativegraded/LPFFTMC UA Auto SSNitrite Auto test strip Ql (U)NegativeNormal Negativemg/dLCORNERSTONE SPECIALTY [facility] UA Auto SSpH (U)7.0 *NA* (11/22/23 4:36 PM)Invalid Interpretation Code5.0 - 9.0[facility] UA Auto SSProtein Ql (U)NegativeNormalNegativemg/dLCORNERSTONE [facility] UA Auto SSRBC Ql (U)0-3 graded/HPFNormal 0-3graded/HPFCORNERSTONE [facility]TY [facility] UA Auto SSSpecific gravity (U) [Rel density]1.004 *NA* (11/22/23 4:36 PM)Invalid Interpretation Code1.005 - 1.030[facility] UA Auto SS Urobilinogen (U) [Mass/Vol]NegativeNormalNegativemg/dLCORNERSTONE SPECIALTY [facility] UA Auto SSWBC Auto (Urine sed) [#/Area]0-5 graded/HPFNormal0-5graded/HPFCORNERSTONE [facility] UA Auto SSURINALYSIS Ordered By: Sandhya Xavier on 48-16-3574RI Spec DescClean Catch (11/22/23 4:36 PM)NormalCORNERSTONE [facility] UA Auto SSXR Abdomen 1 Viewon [id number] Abdomen 1 ViewExam Date/Time: 11/22/2023 17:37 EDT Reason for Exam: [...] Zhou FINAL REPORT Dictated: 11/22/2023 6:05 pm Signer Moiz MCMAHON Signed (Electronic Signature): 11/22/2023 6:05 pm Signed by: Moiz Carreno MD Transcribed by: ARAVIND Technologist: MARY Technical Comments Radiation Dose: Kar in mGy = na DAP = naNormalCleveland Clinic Fairview HospitaleGFRon 69-94-4336kIVK54 mL/min/1.73 m2 Low>=59C[facility] HospitalComment on above:Order Comment: Order added by Discern Expert.Performed By: #### [id number] #### Yen [facility] [address] [place], [place] [address]Vvwuabc for Treatmenton 37-16-7839Cotlrbj for Treatment [id number]#1.00TIFFOur Lady of Mercy Hospital - AndersonUS Abdomen, Limitedon 11-88-4126AC Abdomen, LimitedExam Date/Time: 11/13/2023 08:00 EDT Reason for Exam: [...] Johan Nava MD Transcribed by: ARAVIND Technologist: StephanieCleveland Clinic [facility] HospitalPhysician Orderon 15-10-1915Aqcbstdaq Order [id number]#1.00TIFFNormalFisher [facility]no[facility] Pratt HospitalCNOVon 60-77-9284ZTYLYibtiwCgmehdbzz Clinic ClevelandCNPNon 14-00-5394GWKR NormalSelect Medical Ohiohealth Rehabilitation Hospital - DublinvelandUA DIP, URINE (POC)on 87-45-9535PLJMSSFQH UA (POCT)NegativeNegativeCleveland Clinic Akron GeneralCLARITY UA (POCT)ClearCleveland Clinic [facility] General COLOR UA (POCT)YellowCleRiverview Health InstituteGLUCOSE UA (POCT)NegativeNegative mg/dL [facility] GeneralHemoglobin Ql (U)Trace-lysedAbnormalNegativeCleveland Clinic [facility] General KETONE UA (POCT)NegativeNegative mg/dLCleveland Clinic Akron GeneralLEUKOCYTES UA (POCT)Large AbnormalNegativeCleveland Clinic Akron GeneralNITRITE UA (POCT)NegativeNegativeCleveland Clinic Akron GeneralPH UA (POCT)6.04.5 - 8.0C[facility] Clinic [facility] GeneralProtein Ql (U)NegativeNegative mg/dLDiley Ridge Medical CenterPECIFIC GRAVITY UA (POCT)1.0101.005 - 1.030C[facility] Clinic Akron GeneralUROBILINOGEN UA (POCT)0.2 E.U./dLNormal E.U./dLCleveland Clinic Akron GeneralED Note-Physicianon 57-94-9708TW Note-PhysicianBasic Information Time Seen: Abilio PALMA, Nica Ayoub 10/05/2023 20:09 Chief Complaint pt c\o abd [...] She denies any chest pain or difficulty juan jose athing. She did have a bowel movement yesterday or the day before, but she did not remember exactlywhen. The patient states that she is can [...] production, wheezing, hemoptysis, shortness of breath, dyspnea onexertion Gastrointestinal: Denies abdominal pain, unintentional weight loss, difficulty swallowing, indigestion, bloating, cramping, loss of appetite, nausea, vomiting, diarrhea, hematochezia, melena. + Chronic constipation Genitourinary: Denies any incontinence of urine, dysuria, hematuria, nocturia, polyuria, hesitancy,frequency, urgency, burning Musculoskeletal: Denies joint pain, morning stiffness, joint swelling, decreased range of motion, crepitus Integumentary: Denies any pruritus, rashes, lesions, wounds, petechiae Neurologic: Denies any changes in sight, smell, hearing, taste, seizures, headache, paresthesia, numbness, weakness, balance disturbance Psychiatric denies any depression, change in sleep patterns, anxiety, difficulty concentrating, paranoia, anhedonia, lack of energy, mela Hematologic/lymphatic: Denies any purpura, petechiae, excessive bleeding, bruising [...] Constipation (K59.00: Constipation, unspecified) (more content not included)...[facility] AndersonComment on above:Result Comment: Electronically Signed By: Nica Knox PA-C\.br\Date and Time Signed: 10/05/23 21:57 EST\.br\Electronically Co-Signed By: Koby Masterson DO.br\Date and Time Co-Signed: 10/06/23 00:54 ESTConsent for Treatmenton 22-20-8517Enqvnqs for [id number]#1.00TIFF [facility] AndersonDischarge Instructionson 35-92-1063Wssgznfuq [id number]#1.00TIFFNormalSelect Medical [facility] Clinic Rehabilitation [facility], [place] Clinical Summaryon 54-46-1677PW Clinical Summary [place] [id number] ED Clinical Summary Person Information Name: HARJIT ASENCIO I Patricia/[facility] Age: 73 Years : 1950 Sex: Female Language: Tongan PCP: Aravind MCMAHON, Peggy Mcmillan Marital Status: [...] 10/05/2023 21:56:34 10/05/2023 21:56:34 10/05/2023 21:56:34 ADDRESS: [address] [place] [address] [address] [facility] [id number] PHYS DOC NOTES: MEDICAL INFORMATION: Prescriptions Given: Medications to Continue Taking That Have Changed [address] [place], [place] [id number], [phone] START: carvedilol (carvedilol 3.125 mg Tab) 1 [...] 0. PATIENT EDUCATION INFORMATION: Instructions: Constipation, Adult, Yjti-jr-Ipds; Gastroesophageal Reflux Disease, Adult, Himk-es-Twbu; Abdominal Pain, Adult, Qtlp-hk-Vqln Follow up: With: Address: When: Johan HENRIQUEZ [address] [place] [phone] [employer] (1) In 3 days 10/08/2023 With: Address: When: Peggy Nazario [address] [place] [address] [employer] (1) In 3 days DIAGNOSIS: 1:ConstipationNormalFisher Hernandez Medical CenterED Patient Education Noteon 34-58-7208UN Patient Education NoteGastroenterology Constipation, Adult Constipation is when a person [...] in fat and sugar, such as: ? [place] Timorese fries. ? Hamburgers. ? Cookies. ? Candy. ? Soda. ? Drink enough fluid to keep your pee (urine) pale yellow. General instructions ? Exercise regularly or as told by your doctor. Try to do 150 minutes of exercise each week. ? Go to the restroom when you feel like you need to poop. Do not hold it in. ? Take zfls-qlu-kbhwriz and prescription medicines only as told by your doctor. These include any fiber supplements. ? When you poop: ? Do deep breathing while relaxing your lower belly (abdomen). ? Relax your pelvic floor. The pelvic floor is a group of muscles that support the rectum, bladder,and intestines (as well as the uterus in [...] your pee (urine) pale yellow. ? Take onqp-oma-dtkzmcc and prescription medicines only as told by your doctor. These include any fiber supplements. This information is not intended to replace advice given to you by your health care provider. Make sure you discuss any questions you have with your health care provider. Document Revised: 06/17/2020 Document Reviewed: 06/17/2020 [employer] Patient Education ? 2022 [employer] Gastroesophageal Reflux Disease, Adult Gastroesophageal reflux (ZUNILDA) happens when acid from the stomach flows up into the tube that connects the mouth and the stomach (esophagus). Normally, food travels down the esophagus and stays in thestomach to be digested. With ZUNILDA, food and [...] and onions. ? Hors (more content not included)...NormalSelect Medical Cleveland Clinic Rehabilitation [facility] Patient Summaryon [id number] Patient Summary [address] [address] Patient Discharge Instructions Person Information Name: HARJIT ASENCIO I Age: 73 Years Arrival Date: 10/05/2023 17:54:10 Discharge Diagnosis: 1:Constipation Primary Care Physician: Peggy Nazario MD Provider Information Primary Provider: Koby Masterson DO Advanced Visual Display Manager:None The exam and treatment you received in the Emergency Department were for an urgent problem and are not intended as complete care. It is important that you follow up with a doctor, nurse practitioner,or physician?s digital assistant for ongoing care. If your symptoms [...] Instructions: With: Address: When: Johan HENRIQUEZ [address] [place] [phone] [employer] (1) In 3 days 10/08/2023 With: Address: When: Peggy Nazario [address] [place] [address] [employer] (1) In 3 days In the event that this physician does not participate in your insurance network, please consult with your insurance company to find a nearby participating provider. Patient Education Materials: Constipation, Adult, Pibe-gr-Sbjl; Gastroesophageal Reflux Disease, Adult, Xrgg-sd-Tjpe; Abdominal Pain, Adult, Nzpy-hh-Rteu A MESSAGE TO ALL PATIENTS REGARDING OPIOIDS PRESCRIPTION OPIOIDS: WHAT YOU NEED TO KNOW Prescription opioids can be used to help relieve grofxtss-jy-onyawc pain and are often prescribed following a [...] and have fewer risks and side effects. Optionsmay include: ? Pain relievers such as acetaminophen, [...] unused prescription opioids: Find your community drug take- back program or [facility] hospitalAltia mail-back program, or flush them down the toilet, following guidance from the Food and Drug Administration (www.fda.gov/Drugs/ResourcesForYou). ? Visit www.cdc.gov/drugoverdose to learn about the risks of opioids abuse and overdose. ? If (more content not included)...[facility] - AndersonCNPNon 71-93-6782DXLVGrscukQhjzsqvhq Clinic ClevelandEchocardiographyon 09-27-2023 [id number]#1.00TIFFNormalCleveland Clinic Fairview HospitalOutside Cardiovascularon 19-75-7806Kxrjgun Cardiovascular [id number]#1.00TIFFNormAlexandria Hernandez [facility] [id number]#1.00TIFF Wili [facility] Cardiovascular [id number]#1.00TIFFWili [facility] Operativeon 91-51-0359Ltpvtre Operative [id number]#1.00TIFFNoBlake [facility] [id number]#1.00TIFFLalitha Yen [facility] Radiologyon 38-95-9020Nszmcoe Radiology [id number]#1.00TIFFWili [facility] [id number]#1.00TIFFNoalexander Yen [facility] Pratt HospitalCB panel Auto (Bld)on 84-39-2626Klafgjkxcyy distribution width (RBC) [Ratio]13.2 %Hdejpz60.5-15.0[facility] Comment on above:Order Comment: Specimen Type: BLOOD SPECIMENOrdering Facility: [facility] Address:[address] [place] [address] Performed By: #### 32453-9 ####[facility]IA [id number] [place] [address] [place] Hematocrit (Bld) [Volume fraction]38.1 %Evhbhj11.0-46.0[facility] HospitalComment on above:Order Comment: Specimen Type: BLOOD SPECIMENOrdering Facility: [facility] Address:[address] [place], [place] [address]Performed By: #### 83776-3 ####[facility] [id number] [place] [address] [place] Hemoglobin (Bld) [Mass/Vol]12.2 g/bBTufdpn29.5-15.5CGreene Memorial Hospital Comment on above:Order Comment: Specimen Type: BLOOD SPECIMENOrdering Facility: [facility] Address:[address] [place] [address] Performed By: #### 30734-4 ####[facility] [id number] [place] [address] [place] MCH (RBC) [Entitic mass]29.5 fqOwwpwj44.0-34.0[facility] HospitalComment on above:Order Comment: Specimen Type: BLOOD SPECIMENOrdering Facility: [facility] Address:[address] [place] [address] Performed By: #### 29805-2 ####[facility] [id number] [place] [address] [place] MCHC (RBC) [Mass/Vol]32.0 g/cXXnbvyn53.5-36.0[facility] HospitalComment on above:Order Comment: Specimen Type: BLOOD SPECIMENOrdering Facility: [facility] Address:[address] [place] [address] Performed By: #### 06238-0 ####[facility]OSPITALIA [id number] [place] [address] [place] MCV (RBC) [Entitic vol]92.0 jQMfeobb61.0-100.0[facility] HospitalComment on above:Order Comment: Specimen Type: BLOOD SPECIMENOrdering Facility: [facility] Address:[address] [place] [address] Performed By: #### 89609-3 ####[facility] [id number] [place] [address] [place] Nucleated RBC (Bld) [#/Vol]10*3/uLNormal<0.01[facility] on above:Order Comment: Specimen Type: BLOOD SPECIMENOrdering Facility: [facility] Address:[address] [place] [address] Performed By: #### 89597-9 ####[facility] LABCLIA [id number] [place] [address] [place] Platelet mean volume (Bld) [Entitic vol]10.5 fLNormal9.0-12.7COhioHealth Arthur [facility] on above:Order Comment: Specimen Type: BLOOD SPECIMENOrdering Facility: [facility] Address:[address] [place], [place] [address]Performed By: #### 05567-5 ####[facility] LABCLIA [id number] [place] [address] [place] Platelets (Bld) [#/Vol]195 10*3/wQRntcne468-346BlsgyabseOhio State East Hospital on above:Order Comment: Specimen Type: BLOOD SPECIMENOrdering Facility: [facility] Address:[address] [place] [address] Performed By: #### 93133-4 ####[facility] LABCLIA [id number] [place] [address] [place] RBC (Bld) [#/Vol]4.14 10*6/uLNormal3.90-5.20[facility] on above:Order Comment: Specimen Type: BLOOD SPECIMENOrdering Facility: [facility] Address:[address] [place], [place] [address]Performed By: #### 58806-0 ####[facility] [id number] [place] [address] [place] AMERICAWBC (Bld) [#/Vol]6.03 10*3/uLNormal3.70-11.00[facility] on above:Order Comment: Specimen Type: BLOOD SPECIMENOrdering Facility: [facility] Address:[address] [place] [id number] By: #### 56051-9 ####[facility] LABCLIA [id number] [place] [id number] [place] AMERICACCF CBC PNL BLD AUTOon 09-26-2023 [facility] NRBC # BLD AUTO<0.01NINFChildren's Mercy [facility]land PLATELET # BLD [id number] John's Aurora Community HospitalCCF PMV BLD AUTO10.5 fL9.0 - 12.7 fLSaint John's Aurora Community HospitalCC WBC # BLD AUTO 6.03Saint [facility] Community HospitalErythrocyte distribution width (RBC) [Ratio]13.2 %11.5 - 15.0 %[facility] HealthcareHematocrit (Bld) [Volume fraction]38.1 %36.0 - 46.0 %[facility] Community HospitalHemoglobin (Bld) [Mass/Vol]12.2 g/dL11.5 - 15.5 g/dLSaint Francis Hospital & Health ServicesH (RBC) [Entitic mass]29.5 pg26.0 - 34.0 pgSaint Francis Hospital & Health ServicesHC (RBC) [Mass/Vol] 32.0 g/dL30.5 - 36.0 g/dLSaint Francis Hospital & Health ServicesV (RBC) [Entitic vol]92.0 fL80.0 - 100.0 fLSaint John's Aurora Community HospitalRBC (Bld) [#/Vol]4.14 10*6/uL3.90 - 5.20 m/uLSaint John's Aurora Community HospitalSpecimen Type: BLOOD SPECIMEN Ordering Facility: [facility] Address: [address] [place] [address] Original Ordering Provider: ALEA FOSTERLA HealthcareCNOVon 23-35-1585VUJNWbscbvDrphdxjby Clinic ClevelandCNPTOUTREACHon 09-26-2023 CNPTOUTREACHNormalClevelNovant Health Mint Hill Medical CenterComprehensive metabolic 2000 panelon 58-69-6249Pdkjgan [Mass/Vol]4.2 g/dLNormal3.9-4.9ClevelNovant Health Mint Hill Medical Center Comment on above:Order Comment: Specimen Type: BLOOD SPECIMENOrdering Facility: [facility] Address:[address] [place], [place] [address] [address] Performed By: #### 78444-8, 35436-0 ####[facility] LABCLIA [id number] [address] [address] [place] ALP [Catalytic activity/Vol]57 U/KOokdrn23-781PdobijinbOhio State East Hospital on above:Order Comment: Specimen Type: BLOOD SPECIMENOrdering Facility: [facility] Address:[address] [place] [address] Performed By: #### 27153-1, 24262-8 ####[facility] LABCLIA [id number] [place] [id number] [place] ALT [Catalytic activity/Vol]36 U/LNormal7-38[facility] on above:Order Comment: Specimen Type: BLOOD SPECIMENOrdering Facility: [facility] Address:[address] [place], [place] [address]Performed By: #### 29820-2, 90142-0 ####[facility] [id number] [place] [address] [place] AMERICAAnion gap [Moles/Vol] 10 mmol/LNormal9-18[facility] on above:Order Comment: Specimen Type: BLOOD SPECIMENOrdering Facility: [facility] Address:[address] [place], [place] [address]Performed By: #### 19442-4, 67183-9 ####[facility] LABCLIA [id number] [place] [address] [place] AMERICAAST [Catalytic activity/Vol]29 U/QZcuqnn86-02VbthzjidmOhio State East Hospital on above:Order Comment: Specimen Type: BLOOD SPECIMENOrdering Facility: [facility] Address:[address] [place], [place] [address]Performed By: #### 02523-3, 21889-0 ####[facility] LABCLIA [id number] [place] [address] [place] AMERICABilirubin [Mass/Vol]0.6 mg/dLNormal0.2-1.3 [facility] on above:Order Comment: Specimen Type: BLOOD SPECIMENOrdering Facility: [facility] Address:[address] [place], [place] [address]Performed By: #### 13062-4, 99373-1 ####[facility] LABCLIA [id number] [place] [address] [place] AMERICACalcium [Mass/Vol]9.6 mg/dLNormal8.5-10.2COhioHealth Arthur [facility] on above:Order Comment: Specimen Type: BLOOD SPECIMENOrdering Facility: [facility] Address:[address] [place], [place] [address]Performed By: #### 83075-8, 24835-2 ####[facility] LABCLIA [id number] [place] [address] [place] AMERICAChloride [Moles/Vol]100 mmol/MZqpfwt00-148OcsaxecnrLima City Hospital Comment on above:Order Comment: Specimen Type: BLOOD SPECIMENOrdering Facility: [facility] Address:[address] [place] [address] Performed By: #### 89573-9, 97602-1 ####[facility] LABCLIA [id number] [place] [address] [place] CO2 [Moles/Vol]29 mmol/PIyihfi42-65QvosozhffOhio State East Hospital on above: Order Comment: Specimen Type: BLOOD SPECIMENOrdering Facility: [facility] Address:[address] [place], [place] [address]Performed By: #### 04237- 6, 88889-4 ####[facility] LABCLIA [id number] [place] [address] [place] AMERICACreatinine [Mass/Vol] 0.82 mg/dLNormal0.58-0.96[facility] on above:Order Comment: Specimen Type: BLOOD SPECIMENOrdering Facility: [facility] Address:[address] [place], [place] [address]Performed By: #### 09950- 6, 66172-1 ####[facility] LABCLIA [id number] [facility]INICD [place] [address] [place] AMERICACreatinine and Glomerular filtration rate.predicted panel (S/P/Bld)75 mL/min/1.73m???Normal>=60 [facility] City HospitalComment on above:Order Comment: Specimen Type: BLOOD SPECIMENOrdering Facility: [facility] Address:[address] [place], [place] [id number] Comment: Estimated Glomerular Filtration Rate (eGFR) is calculated using the 2020 CKD-EPI creatinine equation. This equation utilizes serum creatinine, sex, and age as parameters. The creatinine assay has traceable calibration to isotope dilution-mass spectrometry. Refer to KDIGO guidelines for clinical interpretation. In patients with unstable renal function, e.g. those with acute kidney injury, the eGFR may not accurately reflect actual GFR.Performed By: #### 13500-0, 12712-8 ####[facility] LABCLIA [id number] [address] AV[address]UEVA GREATER [facility] [place] [address] [place] AMERICAGlucose [Mass/Vol]129 mg/nCNmmh20-34SfffdioncLima City Hospital Comment on above:Order Comment: Specimen Type: BLOOD SPECIMENOrdering Facility: [facility] Address:[address] [place], [place] [id number] Comment: The [place] Diabetes Association (ADA) provides guidance for cutoff values for fasting glucose and random glucose. The ADA defines fasting as no caloric intake for at least 8 hours. Fasting plasma glucose results between 100 to 125 mg/dL indicate increased risk for diabetes (prediabetes).Fasting plasma glucose results greater than or equal to 126 mg/dL meet the criteria for diagno sis of diabetes. In the absence of unequivocal hyperglycemia, results should be confirmed by repeattesting. In a patient with classic symptoms of hyperglycemia or hyperglycemic crisis, random plasmaglucose results greater than or equal to 200 mg/dL meet the criteria for diagnosis of diabetes.Reference: Standards of Medical Care in Diabetes 2016, [place] Diabetes Association. Diabetes Care. 2016.39(Suppl 1).Performed By: #### 56398-6, 46775-5 ####[facility] LABCLIA [id number] [place] [address] [place] AMERICAPotassium [Moles/Vol]4.3 mmol/LNormal3.7-5.1COhioHealth [facility] on above:Order Comment: Specimen Type: BLOOD SPECIMENOrdering Facility: [facility] Address:[address] [place], [place] [address]Performed By: #### 76465-0, 78239-6 ####[facility] LABCL[facility] [id number] [place] [address] [place] AMERICAProtein [Mass/Vol]6.4 g/dLNormal6.3-8.0[facility] on above:Order Comment: Specimen Type: BLOOD SPECIMENOrdering Facility: [facility] Address:[address] [place] [address] Performed By: #### 68131-4, 07717-4 ####[facility] LABCL[facility] [id number] [place] [address] [place] Sodium [Moles/Vol]139 mmol/IXcwenf182-840OftbznejqOhio State East Hospital on above:Order Comment: Specimen Type: BLOOD SPECIMENOrdering Facility: [facility] Address:[address] [place], [place] [address]Performed By: #### 17701-5, 71573-0 ####[facility] LABCL[facility] [id number] [place] [address] [place] AMERICAUrea nitrogen [Mass/Vol]15 mg/dLNormal7-21[facility] on above:Order Comment: Specimen Type: BLOOD SPECIMENOrdering Facility: [facility] Address:[address] [place], [place] [address]Performed By: #### 83246- 6, 98013-6 ####[facility]CL[facility] [id number] [place] [address] [place] TLCEVCQVVH45jk 90-20-0805JFB75 NormalSelect Medical [facility]health Rehabilitation Hospital - DublinvelandNT-proBNP SerPl-mCncon 17-46-9944Nomnonmmxmo peptide.B prohormone N-Terminal [Mass/Vol]2047 pg/mLHigh<450Select [facility] - DublinvelandComment on above:Order Comment: Specimen Type: BLOOD SPECIMENOrdering Facility: [facility] Address:[address] [place], [place] [address]Performed By: #### 89837-0, 03031-8 ####[facility] [id number] [place] [address] [place] AMERICAURINALYSIS, REFLEX MICROSCOPICon 76-63-0963Geelkyaw LM.HPF (Urine sed) [#/Area]FewAbnormalNone Seen /HPFCleveland Clinic Akron GeneralBilirubin Ql (U)Negative NegativeLakeland ClinicClarity (Unsp spec)CloudyAbnormalClearCleveland Clinic Color (U)YellowYellowCleRiverview Health InstituteEpithelial cells LM.HPF (Urine sed) [#/Area]ModerateCleveland ClinicEpithelial cells LM.HPF (Urine sed) [#/Area]Few AbnormalNone Seen /HPFCleveland Clinic Akron GeneralGlucose Test strip (U) [Mass/Vol]Negative Trace, NegativeLakeland ClinicHemoglobin Ql (U)1+AbnormalNegative, Trace [facility] GeneralKetones Ql (U)NegativeNegative, TraceCleveland Clinic Akron GeneralLeukocyte esterase Test strip Ql (U)500 Ghislaine/uLAbnormalNegative, 25 Ghislaine/uLCleveland Clinic Nitrite Ql (U)NegativeNegativeLakeland ClinicpH (U)6.0 [pH]5.0 - 8.0Cleveland ClinicProtein (U) [Mass/Vol]NegativeTrace, NegativeLakeland ClinicRBC LM.HPF (Urine sed) [#/Area]3-5 /HPFAbnormal0-3 /HPFClenewark hospital ClinicSpecific gravity (U) [Rel density]1.0131.005 - 1.030Clenewark hospital ClinicUrobilinogen Ql (U)NormalNormal [facility] Clinic Akron GeneralWBC LM.HPF (Urine sed) [#/Area]/[HPF]Abnormal0-5 /HPFCleveland Clinic Akron GeneralBacteria LM.HPF (Urine sed) [#/Area]FewAbnormalNone SeenOhio State East Hospital on above:Order Comment: Specimen Type: URINE SPECIMENOrdering Facility: [facility] Address:[address] [place], [place] [address]Performed By: #### [id number] ####[facility] LABCLIA [id number] [place] [address] [place] Bilirubin Ql (U)NegativeNormalNegativeOhio State East Hospital on above:Order Comment: Specimen Type: URINE SPECIMENOrdering Facility: [facility] [facility] Address:[address] [place], [place] [address]Performed By: #### [id number] ####[facility] LABCLIA [id number] [place] [address] [place] OF AMERICAClarity (Unsp spec) CloudyAbnormalClearCOhioHealth [facility] on above:Order Comment: Specimen Type: URINE SPECIMENOrdering Facility: [facility] Address:[address] [place], [place] [address]Performed By: #### [id number] ####[facility] LABCLIA [id number] [place] [address] [place] AMERICAColor (U)YellowNormalYellow [facility] on above:Order Comment: Specimen Type: URINE SPECIMENOrdering Facility: [facility] Address:[address] [place], [place] [address]Performed By: #### [id number] ####[facility] LABCLIA [id number] [place] [address] [place] AMERICAEpithelial cells LM.HPF (Urine sed) [#/Area]ModerateNormalCOhioHealth [facility] on above:Order Comment: Specimen Type: URINE SPECIMENOrdering Facility: [facility] Address:[address] [place], [place] [address]Result Comment: FewPerformed By: #### [id number] ####[facility] LABCLIA [id number] [place] [address] [place] AMERICAGlucose Test strip (U) [Mass/Vol]NegativeNormal Trace, NegativeOhio State East Hospital on above:Order Comment: Specimen Type: URINE SPECIMENOrdering Facility: [facility] Address:[address] [place], [place] [address]Performed By: #### [id number] ####[facility] LABCLIA [id number] [place] [address] [place] AMERICAHemoglobin Ql (U)1+Abnormal Negative, TraceOhio State East Hospital on above:Order Comment: Specimen Type: URINE SPECIMENOrdering Facility: [facility] Address:[address] [place], [place] [address]Performed By: #### [id number] ####[facility] LABCLIA [id number] [place] [address] [place] AMERICAKetones Ql (U)NegativeNormal Negative, TraceOhio State East Hospital on above:Order Comment: Specimen Type: URINE SPECIMENOrdering Facility: [facility] Address:[address] [place], [place] [address]Performed By: #### [id number] ####[facility] LABCLIA [id number] [place] [address] [place] AMERICALeukocyte esterase Test strip Ql (U)500 Ghislaine/uLAbnormalNegative, 25 Ghislaine/uLOhio State East Hospital on above:Order Comment: Specimen Type: URINE SPECIMENOrdering Facility: [facility] Address:[address] [place], [place] [address]Performed By: #### [id number] ####[facility]CL[facility] [id number] [place] [address] [place] AMERICANitrite Ql (U)Negative NormalNegativeOhio State East Hospital on above:Order Comment: Specimen Type: URINE SPECIMENOrdering Facility: [facility] Address:[address] [place], [place] [address]Performed By: #### [id number] ####[facility] LABIA [id number] [place] [address] [place] AMERICApH (U)6.0 [pH]Normal5.0-8.0[facility] Comment on above:Order Comment: Specimen Type: URINE SPECIMENOrdering Facility: [facility] Address:[address] [place] [address] Performed By: #### [id number] ####[facility] LABIA [id number] [place] [address] [place] Protein (U) [Mass/Vol]NegativeNormalTrace, NegativeCleBarberton Citizens Hospital Comment on above:Order Comment: Specimen Type: URINE SPECIMENOrdering Facility: [facility] Address:[address] [place] [address] Performed By: #### [id number] ####[facility] LABIA [id number] [place] [address] [place] RBC LM.HPF (Urine sed) [#/Area]3-5 /HPFAbnormal0-3 /HPFLima City HospitalComment on above:Order Comment: Specimen Type: URINE SPECIMENOrdering Facility: [facility] Address:[address] [place], [place] [address]Performed By: #### [id number] ####[facility] LABIA [id number] [place] [address] [place] Specific gravity (U) [Rel density]1.517Uzwnxt0.005-1.030L[facility] City HospitalComment on above:Order Comment: Specimen Type: URINE SPECIMENOrdering Facility: [facility] Address:[address] [place], [place] [address]Performed By: #### [id number] ####[facility] LABIA [id number] [place] [address] [place] Urobilinogen Ql (U)NormalNormalNormalCGreene Memorial HospitalComment on above: Order Comment: Specimen Type: URINE SPECIMENOrdering Facility: [facility] Address:[address] [place], [place] [address]Performed By: #### [id number] ####[facility] LABCLIA [id number] [place] [address] [place] AMERICAWBC LM.HPF (Urine sed) [#/Area]/[HPF]Abnormal0-5 /HPFLima City HospitalComment on above:Order Comment: Specimen Type: URINE SPECIMENOrdering Facility: [facility] Address:[address] [place], [place] [address]Performed By: #### [id number] ####[facility] LABCLIA [id number] [place] [address] [place] AMERICACNPNon 42-32-2651BGUB NormalLima City HospitalBMPon 51-57-2521Njxkf gap [Moles/Vol]9 mmol/L Normal6-16[facility] HospitalComment on above:Performed By: #### [id number], 90925514, 9243522, 9092960, 9724439, 8525782 #### [facility] [address] [place], [place] [address]ECE/Creat Ratio24 No QdfjmUtia05-09QphwowCleveland Clinic Fairview Hospital Comment on above:Performed By: #### [id number], 84695496, 3409848, 1991536, 1631584, 9157556 #### [facility] [address] [place], [place] [address]Vuxdzzr [Mass/Vol]9.1 mg/dLNormal8.9-11.1Fisher [facility] Pr[facility] HospitalComment on above:Performed By: #### 7405259, 66569684, 0393532, 4383328, 1838090, 9828646 #### [facility] [address] [place], [place] [address]Lvmenlmk [Moles/Vol]105 mmol/AXmkbuk853-084ZpofwpCleveland Clinic Fairview HospitalComment on above:Performed By: #### 9034864, 51145372, 1530784, 2376666, 2190306, 1339503 #### [facility] [address] [place] [place], [place] [address]RB7 [Moles/Vol]28 mmol/GLrnrpz95-56AlvcuxCleveland Clinic Fairview Hospital Comment on above:Performed By: #### 3009782, 39139383, 1876100, 7939313, 9806987, 2987831 #### [facility] [address] [place] [place], [place] [address]Tzuhroeoro [Mass/Vol]0.7 mg/dLNormal0.5-1.3FKnox Community HospitalComment on above:Performed By: #### 2331196, 29718036, 1463165, 2971840, 0431966, 4361619 #### [facility] [address] [place], [place] [address]Euozsqy [Mass/Vol]83 mg/kVMjchoo48-078BpibapCleveland Clinic Fairview HospitalComment on above:Performed By: #### 9687882, 99858299, 9463495, 5534526, 7736013, 2137723 #### [facility] [address] [place] [address]Xbluhowuc [Moles/Vol]4.0 mmol/LNormal3.5-5.3FKnox Community HospitalComment on above:Performed By: #### 6040206, 68507212, 9740932, 0216353, 7903715, 4390897 #### [facility] [address] [place], [place] [address]Rjpbsb [Moles/Vol]138 mmol/SVgvkgh009-913ArisasCleveland Clinic Fairview HospitalComment on above:Performed By: #### 3089222, 65113844, 0873364, 8831075, 8024925, 1699529 #### [facility] [address] [place], [place] [address]Rusq nitrogen [Mass/Vol]17 mg/dLNormal5-21[facility] HospitalComment on above:Performed By: #### 8293200, 35093877, 0639526, 5859537, 2776434, 1483865 #### [facility] [address] [place], [place] [address]HXJ w/ Auto Diffon 58-89-7593Nvdsbpai Absolute0.1 E9/LNormal 0.0-0.2FKnox Community HospitalComment on above:Performed By: #### 5805688, 74382755, 4537815, 8477052, 0972954, 1982020 #### [facility] [address] [place], [place] [address]Clpgyfdyc/100 WBC (Bld)0.9 %Normal0.0-2.0[facility] HospitalComment on above:Performed By: #### 2839669, 85705317, 3138211, 9464241, 8005999, 7870481 #### [facility] [address] [place] [address]Lcs Absolute0.0 E9/LNormal0.0-0.5FKnox Community Hospital Comment on above:Performed By: #### 0929304, 94034160, 3435941, 4763289, 0717982, 1910320 #### [facility] [address] [place] [address]Nkrskkpiyeu/100 WBC (Bld)0.7 %Normal0.0-8.0[facility] HospitalComment on above:Performed By: #### 5174550, 15386062, 4717063, 5472636, 6348254, 3895287 #### [facility] [address] [place], [place] [address]Zmlbhjjsnev distribution width (RBC) [Ratio]14.1 %Normal 10.9-14.2FKnox Community HospitalComment on above:Performed By: #### 4591023, 76232038, 0621559, 5023995, 8154069, 1012626 #### [facility] [address] [place] [place], [place] [address]Jfmpwameds (Bld) [Volume fraction]36.0 %Aysekk39.0-46.0[facility] HospitalComment on above:Performed By: #### 9959560, 68677986, 5244090, 4273193, 3941778, 0225979 #### [facility] [address] [place], [place] [address]Azpfzngjxc (Bld) [Mass/Vol]12.2 g/sNGxtbjz75.0-16.0[facility] HospitalComment on above:Performed By: #### 4984943, 19537529, 0354235, 4626919, 7225516, 0954124 #### [facility] [address] [place] [address]Atomo Absolute2.1 E9/LNormal1.0-4.0[facility] Comment on above:Performed By: #### 7495227, 08031878, 3736467, 6552074, 2901049, 2689767 #### [facility] [address] [place] [address]Grdqqptjjwo/100 WBC (Bld)31.6 %Ljgkxk88.0-50.0[facility] HospitalComment on above:Performed By: #### 4409132, 49487308, 6577562, 4157588, 3658452, 9216568 #### [facility] [address] [place], [place] [address]SXG (RBC) [Entitic mass]30.0 muEbyoez76.0-34.0[facility] HospitalComment on above:Performed By: #### 7162216, 63524972, 5900500, 9352008, 8229756, 1408953 #### [facility] [address] [place], [place] [address]CCHR (RBC) [Mass/Vol]34.1 g/oMLsxyjs94.4-36.0[facility] HospitalComment on above:Performed By: #### 8199008, 14901910, 0801014, 5665148, 1444393, 9897054 #### [facility] [address] [place] [address]NLW (RBC) [Entitic vol]88.0 lHJdaqow44.0-100.0[facility] HospitalComment on above:Performed By: #### 4641977, 67706500, 7534365, 6732980, 0077982, 1534754 #### [facility] [address] [place] [address]Ddsx Absolute0.6 E9/LNormal0.2-1.0[facility] Comment on above:Performed By: #### 3085023, 13186331, 1354322, 0807206, 0493683, 6052929 #### [facility] [address] [place] [address]Pkarepqax/100 WBC (Bld)9.5 %Normal4.0-14.0[facility] HospitalComment on above:Performed By: #### 6005970, 66632706, 3479184, 5969673, 2944681, 6494204 #### [facility] [address] [place] [address]Ftduqr Absolute3.8 E9/LNormal2.0-7.5FKnox Community Hospital Comment on above:Performed By: #### 7236895, 83652635, 0421526, 2854246, 2727954, 9018435 #### [facility] [address] [place], [place] [address]Joguez Auto57.3 %Mmgvck00.0-75.0[facility] Comment on above:Performed By: #### 4623462, 69786853, 2607213, 4487002, 1250624, 8536391 #### [facility] [address] [place] [address]Uqgcgphc311.0 E9/CWvvzcs285.0-500.0[facility] Comment on above:Performed By: #### 4796541, 75538241, 5692058, 2906157, 7951293, 3282618 #### [facility] [address] [place], [place] [address]Ypxgfuxw mean volume (Bld) [Entitic vol]8.0 fLNormal6.4-10.8 [facility] HospitalComment on above:Performed By: #### 7171590, 56687124, 7754521, 5179611, 6534318, 9239466 #### [facility] [address] [place], [place] [address]VMT3.1 E12/LLow4.3-5.9[facility] HospitalComment on above:Performed By: #### 3293610, 37853206, 6402124, 4307308, 8691548, 5216748 #### [facility] [address] [place] [address]BXY4.6 E9/LNormal4.0-11.0[facility] HospitalComment on above:Performed By: #### 9837855, 71629576, 5753055, 7904794, 5888805, 5443619 #### [facility] [address] [place] [address]VEVMKOOIUWaitwqr By: SYSTEM SYSTEM on 41-04-5581Lyqlj gap [Moles/Vol]9 mmol/LNormal6 - 16 mEq/LRemisol ChemCalcium [Mass/Vol]9.1 mg/dL Normal8.9 - 11.1 mg/dLRemisol ChemChloride [Moles/Vol]105 mmol/CTpsfgd090 - 111 mmol/LRemisol ChemCO2 [Moles/Vol]28 mmol/VUlgbpi28 - 31 mmol/LRemisol Chem Creatinine [Mass/Vol]0.7 mg/dLNormal0.5 - 1.3 mg/dLRemisol YahaiVRY57 mL/min/1.73 n4Xnqpsl>=59mL/min/1.73 z3Lwumxdr ChemGlucose [Mass/Vol]83 mg/dL Ljwppo82 - 199 mg/dLRemisol ChemPotassium [Moles/Vol]4.0 mmol/LNormal3.5 - 5.3 mmol/LRemisol ChemSodium [Moles/Vol]138 mmol/BKhxwxb296 - 145 mmol/LRemisol Chem Xyqwhkey88.70 pg/bEXgvytt89.10 - 27.10 pg/mLRemisol ChemComment on above: Interpretive Data: The 95% CI (Confidence Interval) PPV (Positive Predictive Value) for myocardial infarction in females is 38 pg/mL, in males 51 pg/mL. The results should be used in conjunction withclinical conditions of myocardial infarction. (Access High Sensitivity Troponin I Instructions For Use, Marlys Ari[place], March 2018)Urea nitrogen [Mass/Vol]17 mg/dLNormal5 - 21 mg/dLRemisol ChemUrea nitrogen/Creatinine [Mass ratio]24 mg/nvAqgu75 - 20Remisol ChemCHEMISTRYOrdered By: Karlos Barclay on 77-44-1937Xyuzbwp [Mass/Vol]79 mg/kVPnfvut56 - 99 mg/dLCORNERSTONE [facility] POC SubsectionComment on above:Result Comment: Notified RN/MDPOC Device SN [id number] 1Invalid Interpretation CodeCORNERSTONE SPECIALTY [facility] POC SubsectionPOC User [id number] 1Invalid Interpretation [facility] POC SubsectionPOC UsernameMURRAY, EMILYInvalid Interpretation [facility] POC SubsectionCNPNon 53-48-2097AIXWCvkfodUbuseoexv Clinic [facility]enewark hospitalCOAGULATIONOrdered By: Maryan Frost on 35-43-8624hWHK Coag (PPP) [Time]38.2 sHigh25.1 - 36.5 second(s)[facility] Auto CoagComment on above: Interpretive Data: Parameter 15 days - 4 weeks 1 - [...] the same coagulation reagent and instrumentation as [facility]. Currently there are no coagulation studies available worldwide for children to 14 days, andno normal ranges. Heparin therapeutic range (represented by Anti-Factor Xa activity of 0.2 - 0.4 U/mL) corresponds to PTT of 56.6 - 109.0 sec.INR Coag (PPP) [Relative time]1.4 {INR}Invalid Interpretation CodeCORNERSTONE SPECIAL[facility] Auto CoagComment on above:Interpretive Data: INR results are specifically intended to assess patients stabilized on long-term Anticoagulation therapy suggested INR s Less Intensive Anticoagulation 2.0 3.0 Conventional Range 3.0 4.5PT Coag (PPP) [Time]16.4 sHigh9.4 - 12.5 second(s)[facility] Auto CoagComment on above:Interpretive Data: 15 days - 4 weeks 1 - [...] the same coagulation reagent and instrumentation as [facility]. Currently there are no coagulation studies available worldwide for children to 14 days, andno normal ranges.Capillary Glucose POCon 74-95-3100Ozcfxnl [Mass/Vol]79 mg/dLNormal 55-99[facility] HospitalComment on above:Result Comment: Notified RN/ Performed By: #### [id number] ####Yen [facility] [address] [place], [place] [address]Vifwzzr for Treatmenton 00-28-3394Pkvdhsp for [id number]#1.00TIFFNormalCleveland Clinic Fairview HospitalDischarge Instructionson 20-31-1259Yufyljxsp Instructions [id number]#1.00TIFFNormalFisher [facility] Clinical Summaryon 01-97-9728BN Clinical Summary [place] [id number] ED Clinical Summary Person Information Name: HARJIT ASENCIO I [place] Age: 73 Years : 1950 Sex: Female Language: Tongan PCP: Peggy Nazario MD Marital Status: Visit [...] 09/17/2023 06:16:25 09/17/2023 06:16:25 09/17/2023 06:16:25 ADDRESS: [address] [place] [id number] PHYS DOC NOTES: MEDICAL INFORMATION: Prescriptions Given: [...] Follow up: With: Address: When: [place] [address] [employer] (1) In 3 days DIAGNOSIS: Acid reflux; Medication reactionNoSt. Louis Children's Hospital Medical CenterED Note-Physicianon 98-66-1615DW Note-PhysicianBasic Information Time Seen: Parveen Ayers DO 09/17/2023 04:58 Chief Complaint states having side effects of valsartan. states only taking 1/2 tab. nausea. chest tightness. anxiety. History of Present Illness HPI: Patient is a 73-year-old female past medical history of GERD, anxiety, pretension, hyperlipidemia who presents the ED for medication reaction. Patient states that her doctor had recently changedher blood pressure medication to valsartan and she has been having bad reactions to the medication.She states that she is waking in the [...] and Complexity of Problems Differential Diagnosis: [] [facility] Data External documents reviewed: N/A My [...] taking a half of the dose but thesymptoms occurred at the same. Will obtain a [...] Information Peggy Nazario In 3 days [address] [place] [address] Business (1) Additional Instructions: Patient Education Drug [...] (07/21/2023), Cardiac catheterization, combined right and left heart(07/05/2023), Cystourethroscopy with dilation of urethral stricture (10/25/2022), Cystoscopy (02/23/2021), Dilation of urethra (02/01/2019), C (more content not included)...[facility] Comment on above:Result Comment: Electronically Signed By: Parveen Ayers DO\.br\Date and Time Signed: 09/17/23 06:06 SAURAV Patient Education Noteon 35-11-3007TK Patient Education NoteGastroenterology Heartburn Heartburn is a type of pain [...] vinegar, hot sauces, and barbecue sauce. ? Durand fruit juices and citrus fruits, such as oranges, ronald, and limes. ? Tomato-based foods, such as red sauce, chili, salsa, and pizza with red sauce. ? Fried and fatty foods, such as donuts, greenlandic fries, potato chips, and high- fat dressings. ? High-fat meats, such as hot [...] tight around your waist that causes pressure onyour abdomen. ? Raise (elevate) the head of your bed about 6 inches (15 cm) when you sleep. You can use a wedge to do this. ? Try to reduce your stress, such as with yoga or meditation. If you need help reducing stress, askyour health care provider. Medicines ? Take htwv-ltw-kwxllat and prescription medicines only as told by your health care provider. ? Do not take aspirin or NSAIDs, such as ibuprofen, unless your health care provider told you to doso. ? Stop medicines only as told by [...] bad, acid- like taste in the mouth. ? Avoid certain foods and drinks as told by your health care provider. ? Take heqk-lyv-nuvskhv and prescription medicines only as told by [...] provider. Document Revised: 02/03/2021 Document Reviewed: 02/03/2021 [employer]aim[employer] Patient Education ? 2022 [employer]. Pharmacology Drug Allergy A drug allergy happens when the body's disease-fighting system (immune system) reacts badly to a medicine. Drug allergies range from mild to severe. A drug allergy is not the same as a medicine side effect, which is a known possible reaction to the drug. A drug allergy is a (more content not included)...Normal [facility] Patient Summaryon 58-51-1342HM Patient Summary [address] [address] Patient Discharge Instructions Person Information Name: HARJIT ASENCIO I Age: 73 Years Arrival Date: 09/17/2023 04:55:16 Discharge Diagnosis: Acid reflux; Medication reaction Primary Care Physician: Peggy Nazario MD Provider Information Primary Provider: Parveen Ayers DO Advanced Visual Display Manager:Yael The exam and treatment you received in the Emergency Department were for an urgent problem and are not intended as complete care. It is important that you follow up with a doctor, nurse practitioner,or physician?s digital assistant for ongoing care. If your symptoms [...] Instructions: With: Address: When: [place] [address] Business (1) In 3 days In the event that this physician does not participate in your insurance network, please consult with your insurance company to find a nearby participating provider. Patient Education Materials: Drug Allergy; Heartburn A MESSAGE TO ALL PATIENTS REGARDING OPIOIDS PRESCRIPTION OPIOIDS: WHAT YOU NEED TO KNOW Prescription opioids can be used to help relieve wltzoldk-ez-mszhck pain and are often prescribed following a [...] and have fewer risks and side effects. Optionsmay include: ? Pain relievers such as acetaminophen, [...] unused prescription opioids: Find your community drug take- back program or yourpharmacy mail-back program, or flush them down the toilet, following guidance from the Food and Drug Administration (www.fda.gov/Drugs/ResourcesForYou). ? Visit www.cdc.gov/drugoverdose to learn about the risks of opioids abuse and overdose. ? If you believe you may be struggling with addiction, tell your health resident care coordinator and ask for guidance or call [facility]?S National Helpline at 5-278-927-GJED. s Source: US Department of Health and (more content not included)...NormalCleveland Clinic Fairview HospitalHEMATOLOGYOrdered By: SYSTEM SYSTEM on 06-73-4421Xbuczivk Absolute0.1 E9/LNormal0.0 - 0.2 E9/LRemisol HemeBasophils/100 WBC (Bld)0.9 % Normal0.0 - 2.0 %Remisol HemeEos Absolute0.0 E9/LNormal0.0 - 0.5 E9/LRemisol HemeEosinophils/100 WBC (Bld)0.7 %Normal0.0 - 8.0 %Remisol HemeErythrocyte distribution width (RBC) [Ratio]14.1 %Beymoa74.9 - 14.2 %Remisol HemeHematocrit (Bld) [Volume fraction]36.0 %Ezwjbr79.0 - 46.0 %Remisol HemeHemoglobin (Bld) [Mass/Vol]12.2 g/wTXsnipk95.0 - 16.0 gm/dLRemisol HemeLymph Absolute2.1 E9/L Normal1.0 - 4.0 E9/LRemisol HemeLymphocytes/100 WBC (Bld)31.6 %Rdynwm55.0 - 50.0 %Remisol HemeMCH (RBC) [Entitic mass]30.0 amGzftfy59.0 - 34.0 pgRemisol Heme MCHC (RBC) [Mass/Vol]34.1 g/bYBpfggz96.4 - 36.0 gm/dLRemisol HemeMCV (RBC) [Entitic vol]88.0 sJEorqpd14.0 - 100.0 fLRemisol HemeMono Absolute0.6 E9/LNormal 0.2 - 1.0 E9/LRemisol HemeMonocytes/100 WBC (Bld)9.5 %Normal4.0 - 14.0 %Remisol HemeNeutro Absolute3.8 E9/LNormal2.0 - 7.5 E9/LRemisol HemeNeutro Auto57.3 % Sprkcu23.0 - 75.0 %Remisol SokvKcuevpab330.0 E9/WJidsjf670.0 - 500.0 E9/LRemisol HemePlatelet mean volume (Bld) [Entitic vol]8.0 fLNormal6.4 - 10.8 fLRemisol HemeRBC4.1 E12/LLow4.3 - 5.9 E12/LRemisol HemeWBC6.6 E9/LNormal4.0 - 11.0 E9/L Remisol HemeMonitor Recordon 80-97-1249Vxpryvp Record [id number]#1.00TIFFNormalCleveland Clinic Fairview HospitalPT & PTTon 16-87-2862cFYB Coag (PPP) [Time]38.2 second(s)High25.1-36.5 [facility] HospitalComment on above:Result Comment: Parameter 15 days - 4 weeks 1 - [...] the same coagulation reagent and instrumentation as [facility]. Currently there are no coagulation studies available worldwide for children to 14 days, andno normal ranges. Heparin therapeutic range (represented by Anti-Factor Xa activity of 0.2 - 0.4 U/mL) corresponds to PTT of 56.6 - 109.0 sec.Performed By: #### [id number], 69153140, 5980632, 3673841, 2295673, 7058534 #### [facility] [facility] [address] [place], [place] [address]YEA Coag (PPP) [Relative time]1.4 {INR}Invalid Interpretation [facility] CenterComment on above:Result Comment: INR results are specifically intended to assess patients stabilized on long-term Anticoagulation therapy suggested INR?s ?Less Intensive Anticoagulation? 2.0 ? 3.0 Conventional Range 3.0 ? 4.5Performed By: #### [id number], 54696310, 0046637, 2924287, 5697281, 2308084 #### [facility] [address] [place], [place] [address]TB Coag (PPP) [Time]16.4 second(s)High9.4-12.5FKnox Community HospitalComment on above:Result Comment: 15 days - 4 weeks 1 - [...] the same coagulation reagent and instrumentation [place] [facility]. Currently there are no coagulation studies available worldwide for children to 14 days, andno normal ranges.Performed By: #### 6800114, 80687887, 8283006, 4337008, 5647192, 5931899 #### [facility] [address] [place], [place] [address]Fskhrcac 0 Hr.on 43-94-1794Ncvhzwpx86.70 pg/yXGhnujh26.10-27.10 [facility] HospitalComment on above:Result Comment: The 95% CI (Confidence Interval) PPV (Positive Predictive Value) for myocardial infarction in females is 38 pg/mL, in males 51 pg/mL. The results should be used in conjunction with clinical conditions of myocardial infarction. (Access High Sensitivity Troponin I Instructions For Use, Marlys [place], March 2018)Performed By: #### [id number], 49163443, 7987522, 8450075, 8046988, 8351784 #### [facility] [address] [place] [place], [place] [address]NV Chest Single Viewon [id number] Chest Single ViewExam Date/Time: 09/17/2023 05:39 EST Reason for Exam: [...] Ka,r in mGy = na DAP = naNormalCleveland Clinic Fairview HospitaleGFRon 70-17-6965uXFF38 mL/min/1.73 m2 Normal>=59[facility] HospitalComment on above:Order Comment: Order added by Discern Expert.Performed By: #### 0144361, 79536302, 5216110, 0048144, 6646528, 7013624 #### [facility] [address] [place], [place] [address]YRBcc 11-47-3664Nhnyd gap [Moles/Vol]12 mmol/LNormal6-16[facility] HospitalComment on above:Performed By: #### 7130958, 81616888, 2353830, 9901443, 9106040, 2185161 #### [facility] [address] [place] [place], [place] [address]IGJ/Creat Ratio27 No VlrbgCifp36-17HzbvqxCleveland Clinic Fairview Hospital Comment on above:Performed By: #### 9309845, 40272158, 9554147, 7149226, 2688093, 3811415 #### [facility] [address] [place] [place], [place] [address]Aialmbf [Mass/Vol]9.5 mg/dLNormal8.9-11.1FKnox Community HospitalComment on above:Performed By: #### 8518744, 92555047, 1254990, 8116239, 4834889, 4992351 #### [facility] [address] [place], [place] [address]Msrljadz [Moles/Vol]101 mmol/EZkxxiv068-579PkwbviCleveland Clinic Fairview HospitalComment on above:Performed By: #### 6235365, 64174472, 0007647, 5977756, 3699308, 1722706 #### [facility] [address] [place], [place] [address]AB7 [Moles/Vol]27 mmol/JMarvrk80-30WrqndeCleveland Clinic Fairview Hospital Comment on above:Performed By: #### 6265188, 75985590, 5962860, 5007953, 9925841, 8277155 #### [facility] [address] [place] [address]Lchjomovgm [Mass/Vol]0.9 mg/dLNormal0.5-1.3FKnox Community HospitalComment on above:Performed By: #### 0722330, 01330161, 1196669, 7418111, 3767373, 2473334 #### [facility] [address] [place] [address]Xiqnzbl [Mass/Vol]87 mg/cGUnqlci92-715RzvyfvCleveland Clinic Fairview HospitalComment on above:Performed By: #### 4015642, 51634472, 8776234, 6145516, 6836920, 2211013 #### [facility] [address] [place] [address]Tesgjnyoo [Moles/Vol]4.9 mmol/LNormal3.5-5.3FKnox Community HospitalComment on above:Performed By: #### 7805519, 26306417, 5372837, 5659353, 5529493, 7461328 #### [facility] [address] [place], [place] [address]Voatil [Moles/Vol]135 mmol/XMcjtou242-523TgdyeaCleveland Clinic Fairview HospitalComment on above:Performed By: #### 1813771, 29729203, 9662229, 1937438, 3253866, 6954817 #### [facility] [address] [place] [address]Tjdp nitrogen [Mass/Vol]24 mg/dLHigh5-21[facility] HospitalComment on above:Performed By: #### 8838412, 15932439, 5774323, 8002766, 4607673, 4755144 #### [facility] [address] [place] [address]ZZD w/ Auto Diffon 19-32-1493Kpdqghzl Absolute0.1 E9/LNormal 0.0-0.2FKnox Community HospitalComment on above:Performed By: #### 3617970, 61707475, 7347424, 1083273, 2001959, 6748445 #### [facility] [address] [place] [address]Vnoopchkj/100 WBC (Bld)1.1 %Normal0.0-2.0[facility] HospitalComment on above:Performed By: #### 3063090, 09714438, 0085059, 7429066, 6019801, 0898005 #### [facility] [address] [place] [address]Anz Absolute0.1 E9/LNormal0.0-0.5FKnox Community Hospital Comment on above:Performed By: #### 1611338, 74302635, 6219748, 2483454, 3064788, 2678606 #### [facility] [address] [place] [address]Tjvpeqiqkur/100 WBC (Bld)1.2 %Normal0.0-8.0[facility] HospitalComment on above:Performed By: #### 6367063, 97963232, 7131233, 4022167, 9589458, 6752842 #### [facility] [address] [place] [address]Ojxczypuzbk distribution width (RBC) [Ratio]13.7 %Normal 10.9-14.2FKnox Community HospitalComment on above:Performed By: #### 7181154, 93295651, 4646947, 8503801, 3103231, 3966088 #### [facility] [address] [place] [address]Ltehuslgpv (Bld) [Volume fraction]41.0 %Ywqrjp97.0-46.0[facility] HospitalComment on above:Performed By: #### 1921067, 45106527, 0649633, 3069732, 1198455, 0180500 #### [facility] [address] [place] [place], [place] [address]Csiyvnehid (Bld) [Mass/Vol]13.4 g/bWIqsnrh42.0-16.0[facility] HospitalComment on above:Performed By: #### 9094884, 17400338, 4163365, 8773620, 6007670, 5749466 #### [facility] [address] [place] [address]Ujckb Absolute1.9 E9/LNormal1.0-4.0[facility] Comment on above:Performed By: #### 1697805, 14318418, 2305633, 3933660, 4484509, 5103654 #### [facility] [address] [place] [address]Meaucetszho/100 WBC (Bld)25.9 %Jbineu48.0-50.0[facility] HospitalComment on above:Performed By: #### 9666135, 22983427, 4894888, 3957740, 4190974, 9565802 #### [facility] [address] [place] [address]IGG (RBC) [Entitic mass]29.5 nnEpxxbf34.0-34.0[facility] HospitalComment on above:Performed By: #### 8444108, 57518863, 7165447, 1171028, 1283328, 5459674 #### [facility] [address] [place] [address]KZOO (RBC) [Mass/Vol]32.9 g/eUClolhm52.4-36.0[facility] HospitalComment on above:Performed By: #### 8794847, 63736826, 4679045, 8829686, 3061678, 4042298 #### [facility] [address] [place] [address]29[address]ATR (RBC) [Entitic vol]89.6 lVByvtiu03.0-100.0[facility] HospitalComment on above:Performed By: #### 7403865, 16729411, 6691487, 8175346, 3758293, 9948167 #### [facility] [address] [place] [address]Jmny Absolute0.6 E9/LNormal0.2-1.0[facility] Comment on above:Performed By: #### 0844520, 05431315, 2502953, 5168179, 1781874, 4614979 #### [facility] [address] [place] [address] 056[address]Awpxdaplp/100 WBC (Bld)8.0 %Normal4.0-14.0[facility] HospitalComment on above:Performed By: #### 2590650, 93442058, 9321387, 4329332, 3752215, 6904192 #### [facility] [address] [place] [address]Gglsjf Absolute4.7 E9/LNormal2.0-7.5FKnox Community Hospital Comment on above:Performed By: #### 3028804, 18692889, 6732308, 3138076, 8282833, 7868000 #### [facility] [address] [place] [address]15[address]Uixnzd Auto63.8 %Mbwywn80.0-75.0[facility] Comment on above:Performed By: #### 1039363, 56554514, 7934506, 6520055, 0090282, 8387209 #### [facility] [address] [place] [address] 15[address]Tqummjbg355.0 E9/QCxgpko571.0-500.0[facility] Comment on above:Performed By: #### 6930484, 69664377, 6648947, 1942746, 6724150, 6138594 #### [facility] [address] [place] [place], [place] [address]Tssgoimx mean volume (Bld) [Entitic vol]8.2 fLNormal6.4-10.8 [facility] HospitalComment on above:Performed By: #### 7069051, 67136721, 8764268, 9198386, 3793581, 8382398 #### [facility] [address] [place] [place], [place] [address]LEA4.6 E12/LNormal4.3-5.9[facility] HospitalComment on above:Performed By: #### 7141822, 08537999, 7939442, 1407614, 5903966, 3085307 #### [facility] [address] [place] [place], [place] [address]UAD4.4 E9/LNormal4.0-11.0[facility] HospitalComment on above:Performed By: #### 0768257, 46676660, 7102084, 9670169, 0861417, 9999087 #### [facility] [address] [place], [place] [address]WMOFUELGEDmagkgf By: Maryan Frost on 09-12-2023U Amph Scr NegativeInvalid Interpretation CodeRemisol ChemU Hayley ScrNegativeInvalid Interpretation CodeRemisol ChemU Benzodia ScrNegativeInvalid Interpretation Code Remisol ChemU Cannab ScrNegativeInvalid Interpretation CodeRemisol ChemU Cocaine ScrNegativeInvalid Interpretation CodeRemisol ChemU Opiate ScrNegativeInvalid Interpretation CodeRemisol ChemU PCP ScrNegativeInvalid Interpretation Code Remisol ChemCHEMISTRYOrdered By: SYSTEM SYSTEM on 67-93-3771Eykef gap [Moles/Vol]12 mmol/LNormal6 - 16 mEq/LRemisol ChemCalcium [Mass/Vol]9.5 mg/dL Normal8.9 - 11.1 mg/dLRemisol ChemChloride [Moles/Vol]101 mmol/JWjlgtk085 - 111 mmol/LRemisol ChemCO2 [Moles/Vol]27 mmol/NGjbdtg27 - 31 mmol/LRemisol Chem Creatinine [Mass/Vol]0.9 mg/dLNormal0.5 - 1.3 mg/dLRemisol RmoocYFA62 mL/min/1.73 u5Fdtgrv>=59mL/min/1.73 i9Njnvanq ChemGlucose [Mass/Vol]87 mg/dL Fyxewa53 - 199 mg/dLRemisol ChemPotassium [Moles/Vol]4.9 mmol/LNormal3.5 - 5.3 mmol/LRemisol ChemSodium [Moles/Vol]135 mmol/NEgdyyr346 - 145 mmol/LRemisol Chem Xbfvbkvl60.70 pg/zEKbizod27.10 - 27.10 pg/mLRemisol ChemComment on above: Interpretive Data: The 95% CI (Confidence Interval) PPV (Positive Predictive Value) for myocardial infarction in females is 38 pg/mL, in males 51 pg/mL. The results should be used in conjunction withclinical conditions of myocardial infarction. (Access High Sensitivity Troponin I Instructions For Use, Marlys [place], March 2018)Urea nitrogen [Mass/Vol]24 mg/dLHigh5 - 21 mg/dLRemisol ChemUrea nitrogen/Creatinine [Mass ratio]27 mg/slTttw53 - 20Remisol ChemCHEMISTRYOrdered By: Karlos Barclay on 45-92-5250Ievaouh [Mass/Vol]96 mg/hZEvivfn20 - 99 mg/dLCORNERSTONE [facility] POC SubsectionComment on above:Result Comment: Notified RN/MDPMICHAEL Device SN [id number] 1Invalid Interpretation CodeFTMC POC SubsectionPOC User [id number] 1Invalid Interpretation CodeFT POC SubsectionPOC UsernamCORINNE Angel Invalid Interpretation CodeFTMC POC SubsectionCNPNon 80-23-0938BASTJftorh [facility] Head or Brain w/o Contraston 00-11-9135TI Head or Brain w/o ContrastExam Date/Time: 09/12/2023 05:04 EST Reason for Exam: [...] by: ARAVIND Technologist: JON Technical Comments Contrast: NoneNormProtestant HospitalCapillary Glucose POCon 99-01-4918Cyiujju [Mass/Vol]96 mg/iHCjplhk07-89AckvtqC[facility] Clinic [facility] Hospital Comment on above:Result Comment: Notified RN/ANDREINAerformed By: #### 4420244, 31194120, 4631237, 7909098, 8577759, 5835903 #### [facility] [address] [place] [address]Ghoeawd for Treatmenton 04-24-1932Nsqhmnb for Treatment [id number]#1.00TIFRiverview Health InstituteDischarge Instructionson 16-68-2573Rprffuvfl Instructions [id number]#1.00TIFLancaster Municipal Hospital Clinical Summaryon 63-58-2731IP Clinical Summary [address] [address] ED Clinical Summary Person Information Name: HARJIT ASENCIO/[place] Age: 73 Years : 1950 Sex: Female Language: Tongan PCP: Peggy Nazario MD Marital Status: Visit [...] 06:47:40 09/12/2023 06:47:40 09/12/2023 06:47:40 ADDRESS: [address] [place] [address] [address] [facility] [phone] PHYS DOC NOTES: MEDICAL INFORMATION: Prescriptions Given: [...] Adult Follow up: With: Address: When: Peggy Bermudezby [address] [place] [address] [facility] (1) In 3 days DIAGNOSIS: Acid reflux; TremorNormalFisher Hernandez Medical CenterED Note-Physicianon 77-57-0211FA Note-PhysicianBasic Information Time Seen: Parveen Ayers DO 09/12/2023 04:07 Chief Complaint states had recent med change a couple days ago. states has been hearing things. shaky, lightheaded.head pains. anxious History of Present Illness HPI: [...] and Complexity of Problems Differential Diagnosis: [] [facility] Data External documents reviewed: N/A My [...] physician in the morning and discuss this medicationand its potential side effects. Patient was discharged [...] Information Peggy Nazario In 3 days [address] [place], [place] [address] (1) Additional Instructions: Patient Education Tremor Gastroesophageal [...] (07/21/2023), Cardiac catheterization, combined right and left heart(07/05/2023), Cystourethroscopy with dilation of urethral stri (more content not included)...[facility] - AndersonComment on above:Result Comment: Electronically Signed By: Parveen Ayers DO\.br\Date and Time Signed: 09/12/23 06:35 SAURAV Patient Education Noteon 72-44-8075FN Patient Education NoteGastroenterology Gastroesophageal Reflux Disease, Adult Gastroesophageal reflux (ZUNILDA) [...] show the shape, size, and functioning of youresophagus. How is this treated? Treatment for this [...] vinegar, hot sauces, and barbecue sauce. ? Durand fruit juices and citrus fruits, such as oranges, ronald, and limes. ? Tomato-based foods, such as red sauce, chili, salsa, and pizza with red sauce. ? Fried and fatty foods, such as donuts, greenlandic fries, potato chips, and high- fat dressings. ? High-fat meats, such as hot [...] about a safe eugene (more content not included)...[facility]nyOhio[facility] Hospitalus [place] [facility] CenterED Patient Summaryon 09-12-2023 ED Patient Summary [address] [address] Patient Discharge Instructions Person Information Name: HARJIT ASENCIO I Age: 73 Years Arrival Date: 09/12/2023 04:02:15 Discharge Diagnosis: Acid reflux; Tremor Primary Care Physician: Peggy Nazario MD Provider Information Primary Provider: Parveen Ayers DO Advanced Visual Display Manager:None The exam and treatment you received in the Emergency Department were for an urgent problem and are not intended as complete care. It is important that you follow up with a doctor, nurse practitioner,or physician?s digital assistant for ongoing care. If your symptoms [...] Address: When: Peggy Nazario [address] [place] [address] Business (1) In 3 days In the event that this physician does not participate in your insurance network, please consult with your insurance company to find a nearby participating provider. Patient Education Materials: Tremor; Gastroesophageal Reflux Disease, Adult A MESSAGE TO ALL PATIENTS REGARDING OPIOIDS PRESCRIPTION OPIOIDS: WHAT YOU NEED TO KNOW Prescription opioids can be used to help relieve tyspffxh-ah-fwfyzs pain and are often prescribed following a [...] and have fewer risks and side effects. Optionsmay include: ? Pain relievers such as acetaminophen, [...] unused prescription opioids: Find your community drug take- back program or yourpharmacy mail-back program, or flush them down the toilet, following guidance from the Food and Drug Administration (www.fda.gov/Drugs/ResourcesForYou). ? Visit www.cdc.gov/drugoverdose to learn about the risks of opioids abuse and overdose. ? If you believe you may be struggling with addiction, tell your health resident care coordinator and ask for guidance or call [facility]?S National Helpline at 4-007-970-XNQG. y Source: Department of (more content not included)...[facility] - AndersonHEMATOLOGYOrdered By: SYSTEM SYSTEM on 79-40-7133Bklerexf Absolute 0.1 E9/LNormal0.0 - 0.2 E9/LRemisol HemeBasophils/100 WBC (Bld)1.1 %Normal0.0 - 2.0 %Remisol HemeEos Absolute0.1 E9/LNormal0.0 - 0.5 E9/LRemisol Heme Eosinophils/100 WBC (Bld)1.2 %Normal0.0 - 8.0 %Remisol HemeErythrocyte distribution width (RBC) [Ratio]13.7 %Mpvikk50.9 - 14.2 %Remisol HemeHematocrit (Bld) [Volume fraction]41.0 %Xqbohw37.0 - 46.0 %Remisol HemeHemoglobin (Bld) [Mass/Vol]13.4 g/yWIwybex59.0 - 16.0 gm/dLRemisol HemeLymph Absolute1.9 E9/L Normal1.0 - 4.0 E9/LRemisol HemeLymphocytes/100 WBC (Bld)25.9 %Wpeyoc59.0 - 50.0 %Remisol HemeMCH (RBC) [Entitic mass]29.5 omQwoegj06.0 - 34.0 pgRemisol Heme MCHC (RBC) [Mass/Vol]32.9 g/iXUprkar37.4 - 36.0 gm/dLRemisol HemeMCV (RBC) [Entitic vol]89.6 qBXmygfh99.0 - 100.0 fLRemisol HemeMono Absolute0.6 E9/LNormal 0.2 - 1.0 E9/LRemisol HemeMonocytes/100 WBC (Bld)8.0 %Normal4.0 - 14.0 %Remisol HemeNeutro Absolute4.7 E9/LNormal2.0 - 7.5 E9/LRemisol HemeNeutro Auto63.8 % Vkwzwx08.0 - 75.0 %Remisol XrxaHtfdsrrk333.0 E9/OFjifyn237.0 - 500.0 E9/LRemisol HemePlatelet mean volume (Bld) [Entitic vol]8.2 fLNormal6.4 - 10.8 fLRemisol HemeRBC4.6 E12/LNormal4.3 - 5.9 E12/LRemisol HemeWBC7.4 E9/LNormal4.0 - 11.0 E9/LRemisol HemeMonitor Recordon 53-89-4162Kkrrmzg Record [id number]#1.00TIFFNormalCleveland Clinic Fairview HospitalTroponin 0 Hr.on 02-21-8077Hqvzndox66.70 pg/cNGnydij99.10-27.10[facility] HospitalComment on above:Result Comment: The 95% CI (Confidence Interval) PPV (Positive Predictive Value) for myocardial infarction in females is 38 pg/mL, in males 51 pg/mL. The results should be used in conjunction with clinical conditions of myocardial infarction. (Access High Sensitivity Troponin I Instructions For Use, Marlys [place], March 2018)Performed By: #### 0731312, 59346165, 5600072, 3295315, 0156942, 7708358 #### [facility] [address] [place], [place] [address]G Drug Screenon 09-12-2023U Amph ScrNegativeInvalid Interpretation [facility] CenterComment on above:Performed By: #### 2203946, 68433275, 8613562, 4298643, 6751895, 2043140 #### [facility] [address] [place], [place] [address]P Hayley ScrNegativeInvalid Interpretation [facility] CenterComment on above:Performed By: #### 7737236, 82551124, 1135859, 2205849, 0064210, 3063527 #### [facility] [address] [place], [place] [address]F Benzodia ScrNegativeInvalid Interpretation [facility] CenterComment on above:Performed By: #### 3216622, 85864832, 7566062, 6633604, 2797052, 6210900 #### [facility] [address] [place] [address]G Cannab ScrNegativeInvalid Interpretation [facility] CenterComment on above:Performed By: #### 4346467, 89910031, 5644107, 2059797, 8682989, 0185712 #### [facility] [address] [place] [address] 20186O Cocaine ScrNegativeInvalid Interpretation [facility] CenterComment on above:Performed By: #### 7011124, 12188313, 1806890, 3365122, 8138601, 0219618 #### [facility] [address] [place] [address] 56[address]L Opiate ScrNegativeInvalid Interpretation [facility] CenterComment on above:Performed By: #### 7476297, 63984217, 8073620, 7387122, 2579874, 9687324 #### [facility] [address] [place] [address]J PCP ScrNegativeInvalid Interpretation [facility] CenterComment on above:Performed By: #### 8029697, 26051738, 0742912, 9358349, 8583199, 5225348 #### [facility] [address] [place] [address]BZ With Cult Reflexon 58-49-1109Uhlhhdutr Ql (U)NegativeNormal NegativeCleveland Clinic Fairview HospitalComment on above:Performed By: #### 86382515 #### [facility] [address] [place] [address]Xihlrnt (U)CLEARNormalClearCleveland Clinic Fairview HospitalComment on above:Performed By: #### 10365449 #### [facility] [address] [place] [address] 20895Etxal (U)STRAWInvalid Interpretation [facility] CenterComment on above:Performed By: #### 86379308 #### Yen [facility] [address] [place], [place] [address]Tswmwrgwot cells.squamous LM.HPF (Urine sed) [#/Area]0-2Normal 0-2Fisher [facility] Pr[facility] HospitalComment on above:Performed By: #### [id number] #### Yen [facility] [address] [place], [place] [address]Wkevwjb Test strip (U) [Mass/Vol]NegativeNormalNegativeCleveland Clinic Fairview HospitalComment on above:Performed By: #### [id number] #### [facility] [address] [place], [place] [address]Lijwmfghtj Ql (U)1+AbnormalNegativeC[facility] Clinic [facility] Comment on above:Performed By: #### [id number] #### [facility] [address] [place], [place] [address]Bxgyvtn (U) [Mass/Vol]NegativeNormalNegativeCleveland Clinic Fairview HospitalComment on above:Performed By: #### 84370120 #### Yen [facility] [address] [place], [place] [address]Utaijvb.plasma/Orion.RBC (Bld) [Mass ratio]5-3Dvnppf9-7Lbgmkz [facility] HospitalComment on above:Performed By: #### 08761111 #### [facility] [address] [place], [place] [address]Bsejmpe Ql (U)NegativeNormalNegC[facility] Clinic [facility] Comment on above:Performed By: #### 86239399 #### Yen [facility] [address] [place], [place] [address]fE (U)7.0 [pH]Invalid Interpretation Code5.0-9.0[facility] HospitalComment on above:Performed By: #### [id number] #### [facility] [address] [place], [place] [address]Wkzyfjk (U) [Mass/Vol]NegativeNormalNegativeCleveland Clinic Fairview HospitalComment on above:Performed By: #### 12868180 #### Yen [facility] [address] [place], [place] [address]Jgyznfan gravity (U) [Rel density]<=1.005Invalid Interpretation Code1.005-1.030[facility] HospitalComment on above:Performed By: #### [id number] #### Farshad [facility] [address] [place] [address]Mtii of Urine collection methodClean CatchNormalCleveland Clinic Fairview HospitalComment on above:Performed By: #### 97936656 #### Farshad [facility] [address] [place] [address] 965[address]Umoqxojbfimk Qn (U)0.2 {Judith'U}/dLNormal0.0-1.0[facility] HospitalComment on above:Performed By: #### 61683230 #### Yen [facility] [address] [place] [address]BRS Auto Ql (U)TRACEAbnormalNegativeC[facility] Clinic [facility] Comment on above:Performed By: #### [id number] #### Yen [facility] [address] [place] [address] 56[address]ZCG LM.HPF (Urine sed) [#/Area]6-5Klmqnu8-5Hlvcsw [facility] HospitalComment on above:Performed By: #### [id number] #### Farshad [facility] [address] [place] [address] 41425UAJPQBXKEKGhhepgn By: Maryan Frost on 47-41-0152Pnhzunxdw Ql (U)Negative (09/12/23 4:53 AM)NormalNegativeCOR[facility] Auto SSClarity (U)Clear (09/12/23 4:53 AM)NormalClearFTM UA Auto SSColor (U)STRAWInvalid Interpretation CodeCORNERSTONE [facility] [place] Auto SSEpithelial cells.squamous LM.HPF (Urine sed) [#/Area]0-2 /HPF Normal0-2/HPFCORNERSTONE SPECIALTY [facility] Auto SSGlucose Test strip (U) [Mass/Vol]Negative (09/12/23 4:53 AM)NormalNegativeCORNERSTONE [facility] Auto SSHemoglobin Ql (U)1+ *ABN* (09/12/23 4:53 AM)Invalid Interpretation CodeNegativeCORNERSTONE [facility] Auto SSKetones (U) [Mass/Vol]Negative (09/12/23 4:53 AM)NormalNegativeCORNERST[facility] Auto SSLithium.plasma/Orion.RBC (Bld) [Mass ratio]0-3 /HPFNormal0-3/HPFCORNERSTONE SPECIALTY [facility] [place] Auto SSNitrite Ql (U)Negative (09/12/23 4:53 AM)NormalNegativeCOR[facility]ST[facility] Auto SSpH (U)7.0 *NA* (09/12/23 4:53 AM)Invalid Interpretation Code5.0 - 9.0[facility] Auto SSProtein (U) [Mass/Vol]Negative (09/12/23 4:53 AM)NormalNegativeCORNERSTONE [facility] [place] Auto SSSpecific gravity (U) [Rel density] <=1.005 *NA* (09/12/23 4:53 AM)Invalid Interpretation Code1.005 - 1.030[facility] Auto SSUA Spec DescClean Catch (09/12/23 4:53 AM)NormalCORNERSTONE [facility] Auto SSUrobilinogen Qn (U)0.9858728 {Judith'U}/dLNormal0.0 - 1.0 EU/dLCORNERSTONE SPECIALTY [facility] [place] Auto SSWBC Auto Ql (U)Trace *ABN* (09/12/23 4:53 AM)Invalid Interpretation CodeNegativeCORNERSTONE [facility] Auto SSWBC LM.HPF (Urine sed) [#/Area]0-5 /HPFNormal0-5/HPFCORNERSTONE [facility] [place] Auto SSXR Chest Single Viewon 48-72-8790FH Chest Single ViewExam Date/Time: 09/12/2023 05:04 EST Reason for Exam: [...] Ka,r in mGy = na DAP = naNormalCleveland Clinic Fairview HospitaleGFRon 15-46-2006rWHJ88 mL/min/1.73 m2 Normal>=59Cleveland Clinic Fairview HospitalComment on above:Order Comment: Order Added by Discern Expert.Performed By: #### [id number], [id number], [id number], [id number], [id number], [id number] #### [facility] [address] [place], [place] [address]XLHDmk 12-06-7388ABCGFqlkpaVkebsbwfh Clinic ClevelandCNPNon 46-56-8162IBQLRdmohcAyhnpcpbl Clinic ClevelandCBC panel Auto (Bld)on 08-31-2023 Erythrocyte distribution width (RBC) [Ratio]12.9 %Gptaek17.5-15.0[facility] HospitalComment on above:Order Comment: Specimen Type: BLOOD SPECIMENOrdering Facility: [facility] Address:[address] [place], [place] [address]Performed By: #### 97482-4 ####[facility] [id number] [address] OF [facility] HOSPITALHematocrit (Bld) [Volume fraction]36.1 %Pkvuik53.0-46.0[facility] HospitalComment on above:Order Comment: Specimen Type: BLOOD SPECIMENOrdering Facility: [facility] Address:[address] [place], [place] [address]Performed By: #### 79652-4 ####[facility] [id number] [place] [address] [place] Hemoglobin (Bld) [Mass/Vol]11.9 g/dFGxhbzb51.5-15.5CGreene Memorial Hospital Comment on above:Order Comment: Specimen Type: BLOOD SPECIMENOrdering Facility: [facility] Address:[address] [place] [address] Performed By: #### 20293-9 ####[facility] [id number] [place] [address] [place] MCH (RBC) [Entitic mass]29.5 hbBcrlei54.0-34.0[facility] on above:Order Comment: Specimen Type: BLOOD SPECIMENOrdering Facility: [facility] Address:[address] [place] [address] Performed By: #### 45097-6 ####[facility] [id number] [place] [address] [place] MCHC (RBC) [Mass/Vol]33.0 g/jQDwktre88.5-36.0[facility] on above:Order Comment: Specimen Type: BLOOD SPECIMENOrdering Facility: [facility] Address:[address] [place] [address] Performed By: #### 36330-4 ####[facility] [id number] [place] [address] [place] MCV (RBC) [Entitic vol]89.4 mUPqusar49.0-100.0[facility] on above:Order Comment: Specimen Type: BLOOD SPECIMENOrdering Facility: [facility] Address:[address] [place] [address] Performed By: #### 21694-5 ####[facility] [id number] [place] [address] [place] Nucleated RBC (Bld) [#/Vol]10*3/uLNormal<0.01[facility] on above:Order Comment: Specimen Type: BLOOD SPECIMENOrdering Facility: [facility] Address:[address] [place] [address] Performed By: #### 20281-2 ####[facility] [id number] [place] [address] [place] Platelet mean volume (Bld) [Entitic vol]10.2 fLNormal9.0-12.7COhio[facility] on above:Order Comment: Specimen Type: BLOOD SPECIMENOrdering Facility: [facility] Address:[address] [place], [place] [address]Performed By: #### 96556-0 ####[facility] [id number] [place] [address] [place] Platelets (Bld) [#/Vol]175 10*3/qTThmnuf828-360LnufvdflgOhio State East Hospital on above:Order Comment: Specimen Type: BLOOD SPECIMENOrdering Facility: [facility] Address:[address] [place] [address] Performed By: #### 20120-1 ####[facility] [id number] [place] [address] [place] RBC (Bld) [#/Vol]4.04 10*6/uLNormal3.90-5.20[facility] on above:Order Comment: Specimen Type: BLOOD SPECIMENOrdering Facility: [facility] Address:[address] [place], [place] [address]Performed By: #### 41664-6 ####[facility] [id number] [place] [address] [place] AMERICAWBC (Bld) [#/Vol]6.11 10*3/uLNormal3.70-11.00[facility] on above:Order Comment: Specimen Type: BLOOD SPECIMENOrdering Facility: [facility] Address:[address] [place], [place] [address]Performed By: #### 06699-8 ####[facility] [id number] [place] [address] [place] AMERICACNDSon 18-95-0640ZLSQXqiwkv Summa Healthprehensive metabolic 2000 panelon 55-38-6827Tcojcgn [Mass/Vol]3.5 g/dLLow3.9-4.9COhioHealth [facility] on above:Order Comment: Specimen Type: BLOOD SPECIMENOrdering Facility: [facility] Address:[address] [place], [place] [address]Performed By: #### 59868- 9, 42317-9 ####[facility] [id number] [place] [address] [place] AMERICAALP [Catalytic activity/Vol]52 U/NZywmuw48-299BvltqvozcOhio State East Hospital on above:Order Comment: Specimen Type: BLOOD SPECIMENOrdering Facility: [facility] Address:[address] [place], [place] [address]Performed By: #### 70971- 9, 73632-8 ####[facility] [id number] [place] [address] [place]ALT [Catalytic activity/Vol]24 U/LNormal7-38[facility] on above:Order Comment: Specimen Type: BLOOD SPECIMENOrdering Facility: [facility] Address:[address] [place], [place] [address]Performed By: #### 61539- 9, 80703-3 ####[facility] [id number] [facility] [address] [place] AMERICAAnion gap [Moles/Vol]9 mmol/LNormal9-18[facility] on above:Order Comment: Specimen Type: BLOOD SPECIMENOrdering Facility: [facility] Address:[address] [place], [place] [address]Performed By: #### 29014-2, 35376-9 ####[facility] [id number] [facility]ICD AVENUEDESK [place] [id number] [place] AMERICAAST [Catalytic activity/Vol]20 U/HVbumcy96-70UclfuqrtwOhio State East Hospital on above:Order Comment: Specimen Type: BLOOD SPECIMENOrdering Facility: [facility] Address:[address] [place], [place] [address]Performed By: #### 49022-0, 97284-7 ####[facility] [id number] [place] [address] [place] AMERICABilirubin [Mass/Vol]0.5 mg/dLNormal0.2-1.3 [facility] HospitalComment on above:Order Comment: Specimen Type: BLOOD SPECIMENOrdering Facility: [facility] Address:[address] [place], [place] [address]Performed By: #### 72077-5, 31850-0 ####[facility] [id number] [place] [address] [place] AMERICACalcium [Mass/Vol]9.2 mg/dLNormal8.5-10.2CGreene Memorial HospitalCommarlette regional hospital on above:Order Comment: Specimen Type: BLOOD SPECIMENOrdering Facility: [facility] Address:[address] [place], [place] [address]Performed By: #### 78902-0, 46607-1 ####[facility] [id number] [place] [address] [place] AMERICAChloride [Moles/Vol]103 mmol/OWpejyc11-614UfscxgpxzLima City Hospital Comment on above:Order Comment: Specimen Type: BLOOD SPECIMENOrdering Facility: [facility] Address:[address] [place] [address] Performed By: #### 18704-1, 81865-5 ####[facility] [id number] [place] [address] [place] CO2 [Moles/Vol]25 mmol/IIbtdcr02-65MegycyayzOhio State East Hospital on above: Order Comment: Specimen Type: BLOOD SPECIMENOrdering Facility: [facility] Address:[address] [place], [place] [address]Performed By: #### 00698- 9, 57828-7 ####[facility] [id number] [place] [address] [facility] [place] [address] [place]ICACreatinine [Mass/Vol] 0.90 mg/dLNormal0.58-0.96Summa Healthment on above:Order Comment: Specimen Type: BLOOD SPECIMENOrdering Facility: [facility] Address:[address] [place], [place] [address]Performed By: #### 29464- 9, ####[facility] [id number] [place] [address] [facility] [place] [address] [place] AMERICACreatinine and Glomerular filtration rate.predicted panel (S/P/Bld)67 mL/min/1.73m???Normal>=60 [facility] on above:Order Comment: Specimen Type: BLOOD SPECIMENOrdering Facility: [facility] Address:[address] [place], [place] [address]Result Comment: Estimated Glomerular Filtration Rate (eGFR) is calculated using the 2020 CKD-EPI creatinine equation. This equation utilizes serum creatinine, sex, and age as parameters. The creatinine assay has traceable calibration to isotope dilution-mass spectrometry. Refer to KDIGO guidelines for clinical interpretation. In patients with unstable renal function, e.g. those with acute kidney injury, the eGFR may not accurately reflect actual GFR.Performed By: #### 78949-4, 02991-2 ####[facility] [id number] [facility] CLINICD AVENUEVA GREATER [facility] [place] [address] [place] AMERICAGlucose [Mass/Vol]85 mg/xOTlvsdc42-27MojlbbjtmLima City Hospital Comment on above:Order Comment: Specimen Type: BLOOD SPECIMENOrdering Facility: [facility] Address:[address] [place], [place] [address]Result Comment: The [place] Diabetes Association (ADA) provides guidance for cutoff values for fasting glucose and random glucose. The ADA defines fasting as no caloric intake for at least 8 hours. Fasting plasma glucose results between 100 to 125 mg/dL indicate increased risk for diabetes (prediabetes).Fasting plasma glucose results greater than or equal to 126 mg/dL meet the criteria for diagno sis of diabetes. In the absence of unequivocal hyperglycemia, results should be confirmed by repeattesting. In a patient with classic symptoms of hyperglycemia or hyperglycemic crisis, random plasmaglucose results greater than or equal to 200 mg/dL meet the criteria for diagnosis of diabetes.Reference: Standards of Medical Care in Diabetes 2016, [place] Diabetes Association. Diabetes Care. 2016.39(Suppl 1).Performed By: #### 13680-7, 74388-3 ####[facility] [id number] [place] [address] [place] AMERICAPotassium [Moles/Vol]4.3 mmol/LNormal3.7-5.1COhioHealth [facility] on above:Order Comment: Specimen Type: BLOOD SPECIMENOrdering Facility: [facility] Address:[address] [place], [place] [address]Performed By: #### 80377-4, 54987-0 ####[facility] [id number] [place] [address] [place] AMERICAProtein [Mass/Vol]5.9 g/dLLow6.3-8.0[facility] on above:Order Comment: Specimen Type: BLOOD SPECIMENOrdering Facility: [facility] Address:[address] [place], [place] [address]Performed By: #### 29296-3, 04477-6 ####[facility] [id number] [place] [address] [place] AMERICASodium [Moles/Vol]137 mmol/CGmxaav127-623YoymecwarOhio State East Hospital on above:Order Comment: Specimen Type: BLOOD SPECIMENOrdering Facility: [facility] Address:[address] [place], [place] [address]Performed By: #### 99910-4, 67024-1 ####[facility] [id number] [place] [address] [place] AMERICAUrea nitrogen [Mass/Vol]16 mg/dL Normal7-21[facility] on above:Order Comment: Specimen Type: BLOOD SPECIMENOrdering Facility: [facility] Address:[address] [place], [place] [address]Performed By: #### 26397-4, 48765-1 ####[facility] [id number] [place] [id number] [place] OF AMERICAMagnesium SerPl-mCncon 71-66-5118Iufzhedlb [Mass/Vol]2.2 mg/dLNormal1.7-2.3COhioHealth [facility] on above:Order Comment: Specimen Type: BLOOD SPECIMENOrdering Facility: [facility] Address:[address] [place], [place] [address]Performed By: #### 37664- 9, 93680-4 ####[facility] [id number] [place]DR[place] A [facility]K [address] OF AMERICANUTRITIONon 08-31-2023 NUTRITIONNormalCleveland Maria Parham HealthPT EDon 40-49-1780FG EDNormalCaultman orrville hospitaland [facility] EDNormalCaultman orrville hospitaland [facility] FEMALE PELVIS TRANSABD LTDon 95-77-2615NP FEMALE PELVIS TRANSABD LTDNormalCChillicothe VA Medical Center FEMALE PELVIS TRANSVAGon 55-67-4184QU FEMALE PELVIS TRANSVAGNormalLima City HospitalCB panel Auto (Bld)on 65-79-3460Iioqakhxdzn distribution width (RBC) [Ratio]13.1 %Fhcrle26.5-15.0[facility] on above: Order Comment: Specimen Type: BLOOD SPECIMENOrdering Facility: [facility] Address:[address] [place], [place] [address]Performed By: #### 20069- 2 ####[facility] [id number] [place] [address] [place] AMERICAHematocrit (Bld) [Volume fraction]38.9 %Wguidn02.0-46.0[facility] on above:Order Comment: Specimen Type: BLOOD SPECIMENOrdering Facility: [facility] Address:[address] [place], [place] [address]Performed By: #### 29614- 2 ####[facility] [id number] [address] STREETHemoglobin (Bld) [Mass/Vol]12.6 g/nMWsnqgy28.5-15.5COhioHealth [facility] on above:Order Comment: Specimen Type: BLOOD SPECIMENOrdering Facility: [facility] Address:[address] [place], [place] [address]Performed By: #### 92470-2 ####[facility] [id number] [address] (RBC) [Entitic mass]29.9 pg Eyuggg72.0-34.0[facility] on above:Order Comment: Specimen Type: BLOOD SPECIMENOrdering Facility: [facility] Address:[address] [place], [place] [address]Performed By: #### 16564-9 ####[facility] [id number] [address]ETMCHC (RBC) [Mass/Vol]32.4 g/dL Lsxutw34.5-36.0[facility] on above:Order Comment: Specimen Type: BLOOD SPECIMENOrdering Facility: [facility] Address:[address] [place], [place] [address]Performed By: #### 02937-8 ####[facility] [id number] [address]V (RBC) [Entitic vol]92.2 fL Rgqwmc35.0-100.0[facility] on above:Order Comment: Specimen Type: BLOOD SPECIMENOrdering Facility: [facility] Address:[address] [place], [place] [address]Performed By: #### 83552-0 ####[facility] [id number] [place] [address] [place] AMERICANucleated RBC (Bld) [#/Vol] 10*3/uLNormal<0.01[facility] on above:Order Comment: Specimen Type: BLOOD SPECIMENOrdering Facility: [facility] Address:[address] [place], [place] [address]Performed By: #### 16270-8 ####[facility] [id number] [place] [address] [place] AMERICAPlatelet mean volume (Bld) [Entitic vol]10.4 fLNormal9.0-12.7COhioHealth [facility] on above: Order Comment: Specimen Type: BLOOD SPECIMENOrdering Facility: [facility] Address:[address] [place], [place] [address]Performed By: #### 00460- 2 ####[facility] [id number] [place] [address] [place] AMERICAPlatelets (Bld) [#/Vol]185 10*3/bBFhoxgd725-369FcygsbfotOhio State East Hospital on above:Order Comment: Specimen Type: BLOOD SPECIMENOrdering Facility: [facility] Address:[address] [place], [place] [address]Performed By: #### 31026-9 ####[facility] [id number] [place] [address] [place] AMERICARBC (Bld) [#/Vol]4.22 10*6/uL Normal3.90-5.20[facility] on above:Order Comment: Specimen Type: BLOOD SPECIMENOrdering Facility: [facility] Address:[address] [place], [place] [address]Performed By: #### 65009-8 ####[facility] [id number] [place] [address] [place] AMERICAWBC (Bld) [#/Vol]6.51 10*3/uL Normal3.70-11.00[facility] on above:Order Comment: Specimen Type: BLOOD SPECIMENOrdering Facility: [facility] Address:[address] [place], [place] [address]Performed By: #### 43140-0 ####[facility] [id number] [facility] [place] [address] [place] AMERICACNCOon 20-06-2660XZZXZhiasb Text NormalLima City HospitalCONSULT PROGon 34-75-3944KMHWCGC PROGNormal [facility] City HospitalComprehensive metabolic 2000 panelon 62-96-5368Oujzfsv [Mass/Vol]3.9 g/dLNormal3.9-4.9COhioHealth [facility] on above:Order Comment: Specimen Type: BLOOD SPECIMENOrdering Facility: [facility] Address:[address] [place], [place] [address]Performed By: #### 50704- 9, 55671-6 ####[facility] [id number] [place] [address] [place] AMERICAALP [Catalytic activity/Vol]65 U/MHjrmlr85-753GvdwubugyOhio State East Hospital on above:Order Comment: Specimen Type: BLOOD SPECIMENOrdering Facility: [facility] Address:[address] [place], [place] [address]Performed By: #### 57166- 9, 71133-9 ####[facility] [id number] [place] [address] [place] AMERICAALT [Catalytic activity/Vol]28 U/LNormal7-38[facility] on above:Order Comment: Specimen Type: BLOOD SPECIMENOrdering Facility: [facility] Address:[address] [place], [place] [address]Performed By: #### 56000- 9, 71151-9 ####[facility] [id number] [place] [address] [place] AMERICAAnion gap [Moles/Vol]9 mmol/LNormal9-18[facility] on above:Order Comment: Specimen Type: BLOOD SPECIMENOrdering Facility: [facility] Address:[address] [place], [place] [address]Performed By: #### 39328-4, 22345-2 ####[facility] [id number] [place] [address] [place] AMERICAAST [Catalytic activity/Vol]24 U/AIhjyno82-87JmwfmopxmOhio State East Hospital on above:Order Comment: Specimen Type: BLOOD SPECIMENOrdering Facility: [facility] Address:[address] [place], [place] [address]Performed By: #### 04714-5, 84571-8 ####[facility] [id number] [place] [address] [place] AMERICABilirubin [Mass/Vol]0.5 mg/dLNormal0.2-1.3 [facility] on above:Order Comment: Specimen Type: BLOOD SPECIMENOrdering Facility: [facility] Address:[address] [place], [place] [address]Performed By: #### 05887-8, 89550-9 ####[facility] [id number] [place] [address] [place] AMERICACalcium [Mass/Vol]9.3 mg/dLNormal8.5-10.2COhioHealth [facility] on above:Order Comment: Specimen Type: BLOOD SPECIMENOrdering Facility: [facility] Address:[address] [place], [place] [address]Performed By: #### 19215-0, 65633-8 ####[facility] [id number] [place] [address] [place] AMERICAChloride [Moles/Vol]103 mmol/YZvhvax71-880EqibeoutxLima City Hospital Comment on above:Order Comment: Specimen Type: BLOOD SPECIMENOrdering Facility: [facility] Address:[address] [place] [address] Performed By: #### 92106-3, 86751-3 ####[facility] [id number] [place] [address] [place] CO2 [Moles/Vol]25 mmol/LNivenq06-81ToggnhonyOhio State East Hospital on above: Order Comment: Specimen Type: BLOOD SPECIMENOrdering Facility: [facility] Address:[address] [place], [place] [address]Performed By: #### 22676- 9, 44749-9 ####[facility] [id number] [place] [address] [place] AMERICACreatinine [Mass/Vol] 1.11 mg/dLHigh0.58-0.96[facility] on above:Order Comment: Specimen Type: BLOOD SPECIMENOrdering Facility: [facility] Address:[address] [place], [place] [address]Performed By: #### 09943-5, 73994-1 ####[facility] [id number] [place] [address] [place] AMERICACreatinine and Glomerular filtration rate.predicted panel (S/P/Bld)52 mL/min/1.73m???Low>=60[facility] on above:Order Comment: Specimen Type: BLOOD SPECIMENOrdering Facility: [facility] Address:[address] [place], [place] [address]Result Comment: Estimated Glomerular Filtration Rate (eGFR) is calculated using the 2020 CKD-EPI creatinine equation. This equation utilizes serum creatinine, sex, and age as parameters. The creatinine assay has traceable calibration to isotope dilution-mass spectrometry. Refer to KDIGO guidelines for clinical interpretation. In patients with unstable renal function, e.g. those with acute kidney injury, the eGFR may not accurately reflect actual GFR.Performed By: #### 98257-1, 57485-6 ####[facility] [id number] [place] [address] [place] AMERICAGlucose [Mass/Vol]149 mg/hMFkqz04-71ScmdnxjyoLima City Hospital Comment on above:Order Comment: Specimen Type: BLOOD SPECIMENOrdering Facility: [facility] Address:[address] [place], [place] [address]Result Comment: The [place] [employer] (ADA) provides guidance for cutoff values for fasting glucose and random glucose. The ADA defines fasting as no caloric intake for at least 8 hours. Fasting plasma glucose results between 100 to 125 mg/dL indicate increased risk for diabetes (prediabetes).Fasting plasma glucose results greater than or equal to 126 mg/dL meet the criteria for diagno sis of diabetes. In the absence of unequivocal hyperglycemia, results should be confirmed by repeattesting. In a patient with classic symptoms of hyperglycemia or hyperglycemic crisis, random plasmaglucose results greater than or equal to 200 mg/dL meet the criteria for diagnosis of diabetes.Reference: Standards of Medical Care in Diabetes 2016, [place] Diabetes Association. Diabetes Care. 2016.39(Suppl 1).Performed By: #### 28409-1, 36779-2 ####[facility] LABCLIA [id number] [place] [address] [place] AMERICAPotassium [Moles/Vol]5.0 mmol/LNormal3.7-5.1CGreene Memorial HospitalComment on above:Order Comment: Specimen Type: BLOOD SPECIMENOrdering Facility: [facility] Address:[address] [place], [place] [address]Performed By: #### 17690-4, ####[facility] [id number] [place] [address] [place] AMERICAProtein [Mass/Vol]6.3 g/dLNormal6.3-8.0[facility] on above:Order Comment: Specimen Type: BLOOD SPECIMENOrdering Facility: [facility] Address:[address] [place] [address] Performed By: #### 02145-3, ####[facility]CL[facility] [id number] [place] [address] [place] Sodium [Moles/Vol]137 mmol/KFsmxzh202-718WhbaxtoezLima City HospitalComment on above:Order Comment: Specimen Type: BLOOD SPECIMENOrdering Facility: [facility] Address:[address] [place], [place] [address]Performed By: #### 63021-0, 29631-0 ####[facility] LABIA [id number] [place] [address] [place] AMERICAUrea nitrogen [Mass/Vol]19 mg/dLNormal7-21[facility] on above:Order Comment: Specimen Type: BLOOD SPECIMENOrdering Facility: [facility] Address:[address] [place], [place] [address]Performed By: #### 34727- 9, 10194-2 ####[facility] LABIA [id number] [place] [address] [place] AMERICAMagnesium SerPl-mCncon 62-01-7664Axkjotqxv [Mass/Vol]2.2 mg/dLNormal1.7-2.3CGreene Memorial Hospital Comment on above:Order Comment: Specimen Type: BLOOD SPECIMENOrdering Facility: [facility] Address:[address] [place] [address] Performed By: #### 34028-7, 21124-4 ####[facility] LABIA [id number] [place] [address] [place] NURSING PROGon 87-59-3297VYVMSPG PROGNormalLima City HospitalNUTRITIONon 32-01-9158RBLQHAJNEOrjvzoIckmkdeaz Clinic ClevelandCB panel Auto (Bld)on 64-85-4561Jfpckpmukga distribution width (RBC) [Ratio]13.1 %Snnhqi71.5-15.0 [facility] on above:Order Comment: Specimen Type: BLOOD SPECIMENOrdering Facility: [facility] Address:[address] [place], [place] [address]Performed By: #### 44060-9 ####[facility] LABIA [id number] [place] [address] [place] [facility]IAL HOSPITALHematocrit (Bld) [Volume fraction]39.4 %Sipeuo85.0-46.0[facility] on above:Order Comment: Specimen Type: BLOOD SPECIMENOrdering Facility: [facility] Address:[address] [place], [place] [address]Performed By: #### 92876-6 ####[facility] LAB[facility] [id number] [place] [address] [place] Hemoglobin (Bld) [Mass/Vol]13.1 g/lUUzexxg72.5-15.5CGreene Memorial Hospital Comment on above:Order Comment: Specimen Type: BLOOD SPECIMENOrdering Facility: [facility] Address:[address] [place] [address] Performed By: #### 38878-2 ####[facility] [id number] [place] [address] [place] MCH (RBC) [Entitic mass]30.0 upCgyyjf72.0-34.0[facility] on above:Order Comment: Specimen Type: BLOOD SPECIMENOrdering Facility: [facility] Address:[address] [place] [address] Performed By: #### 21760-8 ####[facility] [id number] [place] [address] [place] MCHC (RBC) [Mass/Vol]33.2 g/fJPmnfjk12.5-36.0Lima City HospitalComment on above:Order Comment: Specimen Type: BLOOD SPECIMENOrdering Facility: [facility] Address:[address] [place] [address] Performed By: #### 28395-8 ####[facility] [id number] [address] [place] [address] [place] MCV (RBC) [Entitic vol]90.4 yKKmhxdn54.0-100.0[facility] on above:Order Comment: Specimen Type: BLOOD SPECIMENOrdering Facility: [facility] Address:[address] [place] [address] Performed By: #### 60343-0 ####[facility] LABIA [id number] [place] [address] [place] Nucleated RBC (Bld) [#/Vol]10*3/uLNormal<0.01[facility] on above:Order Comment: Specimen Type: BLOOD SPECIMENOrdering Facility: [facility] Address:[address] [place] [address] Performed By: #### 48318-9 ####[facility]ITAL[facility] [id number] [place] [address] [place] Platelet mean volume (Bld) [Entitic vol]10.5 fLNormal9.0-12.7COhioHealth [facility] on above:Order Comment: Specimen Type: BLOOD SPECIMENOrdering Facility: [facility] Address:[address] [place], [place] [address]Performed By: #### 39052-6 ####[facility] [id number] [place] [address] [place] Platelets (Bld) [#/Vol]192 10*3/fTLynhgx668-514OlvzokxkzOhio State East Hospital on above:Order Comment: Specimen Type: BLOOD SPECIMENOrdering Facility: [facility] Address:[address] [place] [address] Performed By: #### 94501-7 ####[facility] LABIA [id number] [place] [address] [place] RBC (Bld) [#/Vol]4.36 10*6/uLNormal3.90-5.20[facility] on above:Order Comment: Specimen Type: BLOOD SPECIMENOrdering Facility: [facility] Address:[address] [place], [place] [address]Performed By: #### 35554-8 ####[facility] LABCLIA [id number] [place] [address] [place] AMERICAWBC (Bld) [#/Vol]8.00 10*3/uLNormal3.70-11.00[facility] on above:Order Comment: Specimen Type: BLOOD SPECIMENOrdering Facility: [facility] Address:[address] [place], [place] [address]Performed By: #### 69993-8 ####[facility] LABCL[facility] [id number] [place] [address] [place] AMERICACT FLANK WO IVCONon 01-92-0871XM FLANK WO IVCONInvalid Interpretation CodeLima City HospitalComprehensive metabolic 2000 panelon 31-77-3090Iansomh [Mass/Vol]3.9 g/dLNormal3.9-4.9 [facility] City HospitalComment on above:Order Comment: Specimen Type: BLOOD SPECIMENOrdering Facility: [facility] Address:[address] [place], [place] [address]Performed By: #### 85645-8, 12768-4 ####[facility] LABCL[facility] [id number] [place] [address] [place] AMERICAALP [Catalytic activity/Vol]58 U/WLmdhpl74-612BzidyglrdOhio State East Hospital on above:Order Comment: Specimen Type: BLOOD SPECIMENOrdering Facility: [facility] Address:[address] [place], [place] [address]Performed By: #### 48774-7, 86325-3 ####[facility]CL[facility] [id number] [place] [address] [place] AMERICAALT [Catalytic activity/Vol]33 U/LNormal7-38[facility] Comment on above:Order Comment: Specimen Type: BLOOD SPECIMENOrdering Facility: [facility] Address:[address] [place] [address] Performed By: #### 09062-5, 55147-0 ####[facility] LABCLIA [id number] [place] [address] [place] Anion gap [Moles/Vol]10 mmol/LNormal9-18[facility] on above:Order Comment: Specimen Type: BLOOD SPECIMENOrdering Facility: [facility] Address:[address] [place], [place] [address]Performed By: #### 18261-4, ####[facility]CLIA [id number] [place] [address] [place] AMERICAAST [Catalytic activity/Vol]25 U/QUpbzkp10-33OqeaguttwOhio State East Hospital on above:Order Comment: Specimen Type: BLOOD SPECIMENOrdering Facility: [facility] Address:[address] [place], [place] [address]Performed By: #### 57488- 8, ####[facility] LABCLIA [id number] [facility] [place] [address] [place] AMERICABilirubin [Mass/Vol]0.7 mg/dLNormal0.2-1.3COhioHealth [facility] on above:Order Comment: Specimen Type: BLOOD SPECIMENOrdering Facility: [facility] Address:[address] [place], [place] [address]Performed By: #### 77041-3, ####[facility]CL[facility] [id number] [place] [address] [place] AMERICACalcium [Mass/Vol]9.0 mg/dLNormal 8.5-10.2COhioHealth [facility] on above:Order Comment: Specimen Type: BLOOD SPECIMENOrdering Facility: [facility] Address:[address] [place], [place] [address]Performed By: #### 31378-4, ####[facility] LABCLIA [id number] [place] [id number] [place] AMERICAChloride [Moles/Vol]101 mmol/KUvosor07-332 [facility] on above:Order Comment: Specimen Type: BLOOD SPECIMENOrdering Facility: [facility] Address:[address] [place], [place] [address]Performed By: #### 54326-5, 71262-7 ####[facility]CL[facility] [id number] [place] [address] [place] AMERICACO2 [Moles/Vol]25 mmol/TIkghzo48-18BscnmttnrLima City Hospital Comment on above:Order Comment: Specimen Type: BLOOD SPECIMENOrdering Facility: [facility] Address:[address] [place] [address] Performed By: #### 91142-5, 93720-5 ####[facility] LABIA [id number] [place] [address] [place] Creatinine [Mass/Vol]0.87 mg/dLNormal0.58-0.96[facility] on above:Order Comment: Specimen Type: BLOOD SPECIMENOrdering Facility: [facility] Address:[address] [place] [address] Performed By: #### 89806-6, 33262-4 ####[facility] LABIA [id number] [place] [address] [place] Creatinine and Glomerular filtration rate.predicted panel (S/P/Bld)70 mL/min/1.73m???Normal>=60[facility] on above:Order Comment: Specimen Type: BLOOD SPECIMENOrdering Facility: [facility] Address:[address] [place], [place] [address]Result Comment: Estimated Glomerular Filtration Rate (eGFR) is calculated using the 2020 CKD-EPI cre atinine equation. This equation utilizes serum creatinine, sex, and age as parameters. The creatinine assay has traceable calibration to isotope dilution- mass spectrometry. Refer to KDIGO guidelines for clinical interpretation. In patients with unstable renal function, e.g. those with acute kidney injury, the eGFR may not accurately reflect actual GFR.Performed By: #### 27263-5, 45238-1 ####[facility]CLIA [id number] [facility] [facility] [place] [address] [place] AMERICAGlucose [Mass/Vol]85 mg/dLNormal 74-99[facility] on above:Order Comment: Specimen Type: BLOOD SPECIMENOrdering Facility: [facility] Address:[address] [place], [place] [address]Result Comment: The [place] Diabetes Association (ADA) provides guidance for cutoff [...] unequivocal hyperglycemia, results should be confirmed by repeattesting. In a patient with classic symptoms of hyperglycemia or hyperglycemic crisis, random plasmaglucose results greater than or equal to 200 mg/dL meet the criteria for diagnosis of diabetes.Reference: Standards of Medical Care in Diabetes 2016, [place] Diabetes Association. Diabetes Care. 2016.39(Suppl 1).Performed By: #### 52716- 8, ####[facility] LABCLIA [id number] [facility] [place]ICD [place] [address] [place] AMERICAPotassium [Moles/Vol] 4.7 mmol/LNormal3.7-5.1COhioHealth [facility] on above:Order Comment: Specimen Type: BLOOD SPECIMENOrdering Facility: [facility] Address:[address] [place], [place] [address]Performed By: #### 30918-3, ####[facility] LABCLIA [id number] [facility]INICD AVENUEVA GREATER LOS [facility] [place] [address] [place] AMERICAProtein [Mass/Vol]6.3 g/dLNormal 6.3-8.0[facility] ClevelandComment on above:Order Comment: Specimen Type: BLOOD SPECIMENOrdering Facility: [facility] Address:[address] [place], [place] [address]Performed By: #### 90214-9, 85689-7 ####[facility] LABCL[facility] [id number] [place] [address] [place] AMERICASodium [Moles/Vol]136 mmol/KVbvnot888-557RybnlmifwOhio State East Hospital on above:Order Comment: Specimen Type: BLOOD SPECIMENOrdering Facility: [facility] Address:[address] [place], [place] [address]Performed By: #### 69587-9, 51910-8 ####[facility] LABCL[facility] [id number] [place] [address] [place] AMERICAUrea nitrogen [Mass/Vol]15 mg/dLNormal7-21[facility] on above:Order Comment: Specimen Type: BLOOD SPECIMENOrdering Facility: [facility] Address:[address] [place], [place] [address]Performed By: #### 39811-7, 30315-0 ####[facility] LABIA [id number] [place] [address] [place] AMERICADIGOXIN/LANOXINon 56-34-9060Lzdmumi [Mass/Vol]1.0 ng/mLNormal0.6-1.2 [facility] on above:Order Comment: Specimen Type: BLOOD SPECIMENOrdering Facility: [facility] Address:[address] [place], [place] [address]Result Comment: Provided therapeutic concentrations are based on the 2008 ESC Guidelines for the Diagnosis and Treatment of Acute and Chronic Heart Failure.Reference ranges and high/low indicator flags are provided as general guidelines only. The treating physician must determine appropriate targetlevels/dosing based on the specific clinical situation.Performed By: #### DIG ####[facility] LABCLIA [id number] [place] [address] [place] AMERICAMagnesium SerPl-mCncon 08-29-2023 Magnesium [Mass/Vol]2.2 mg/dLNormal1.7-2.3COhioHealth [facility] on above:Order Comment: Specimen Type: BLOOD SPECIMENOrdering Facility: [facility] Address:[address] [place], [place] [address]Performed By: #### 75990-8, 86436-9 ####[facility] LABCLIA [id number] [place] [address] [place] BEAUMONT HOSPITALUTRITIONon 73-88-3555GIMFUDOUIOtjjzcDdtfbekcl Clinic ClevelandTHYROID PEROXIDASE ANTIBODY BLOODon 07-25-5411HNQ Ab Qn[IU]/mLNormal<5.6COhioHealth [facility] on above:Order Comment: Specimen Type: BLOOD SPECIMENOrdering Facility: [facility] Address:[address] [place], [place] [address]Result Comment: Thyroid Peroxidase Antibody test is used as an aid in diagnosis of autoimmune thyroid disease. Clinical correlation is required.Performed By: #### MICRO ####[facility] LABCLIA [id number] [place] [address] [place] AMERICAANES POSTPROC EVALon 08-28-2023 ANES POSTPROC EVALNormalCGreene Memorial HospitalANES PRE-OPon 85-72-9987APYO PRE-OPNormalLima City HospitalCASE MANAGEMon 40-66-0472OEVC MANAGEM NormalLima City HospitalCB panel Auto (Bld)on 67-16-8421Lmeqdomllju distribution width (RBC) [Ratio]13.1 %Tocfqy52.5-15.0[facility] Comment on above:Order Comment: Specimen Type: BLOOD SPECIMENOrdering Facility: [facility] Address:[address] [place] [address] Performed By: #### 29520-7 ####[facility] [id number] [place] [address] [place] Hematocrit (Bld) [Volume fraction]37.8 %Erumfb76.0-46.0[facility] on above:Order Comment: Specimen Type: BLOOD SPECIMENOrdering Facility: [facility] Address:[address] [place], [place] [address]Performed By: #### 62096-9 ####[facility] [id number] [place] [address] [place] Hemoglobin (Bld) [Mass/Vol]12.3 g/cKXgyztn61.5-15.5CGreene Memorial Hospital Comment on above:Order Comment: Specimen Type: BLOOD SPECIMENOrdering Facility: [facility] Address:[address] [place] [address] Performed By: #### 59088-0 ####[facility] LAB[facility] [id number] [place] [address] [place] MCH (RBC) [Entitic mass]29.5 iyBkpvja06.0-34.0L[facility] City HospitalComment on above:Order Comment: Specimen Type: BLOOD SPECIMENOrdering Facility: [facility] Address:[address] [place] [address] Performed By: #### 55202-7 ####[facility] [id number] [place] [address] [place] MCHC (RBC) [Mass/Vol]32.5 g/ySVhbeyh52.5-36.0L[facility] HospitalComment on above:Order Comment: Specimen Type: BLOOD SPECIMENOrdering Facility: [facility] Address:[address] [place] [address] Performed By: #### 24986-1 ####[facility] [id number] [place] [address] [place] MCV (RBC) [Entitic vol]90.6 hRJylypp10.0-100.0L[facility] City HospitalComment on above:Order Comment: Specimen Type: BLOOD SPECIMENOrdering Facility: [facility] Address:[address] [place] [address] Performed By: #### 88815-6 ####[facility]IA [id number] [place] [address] [place] Nucleated RBC (Bld) [#/Vol]10*3/uLNormal<0.01[facility] on above:Order Comment: Specimen Type: BLOOD SPECIMENOrdering Facility: [facility] Address:[address] [place] [address] Performed By: #### 31536-9 ####[facility] [id number] [place] [address] [place] Platelet mean volume (Bld) [Entitic vol]10.4 fLNormal9.0-12.7COhioHealth [facility] on above:Order Comment: Specimen Type: BLOOD SPECIMENOrdering Facility: [facility] Address:[address] [place], [place] [address]Performed By: #### 57203-5 ####[facility] [id number] [place] [address] [place] Platelets (Bld) [#/Vol]180 10*3/kSVhmlfi086-347AugumrgfiOhio State East Hospital on above:Order Comment: Specimen Type: BLOOD SPECIMENOrdering Facility: [facility] Address:[address] [place] [address] Performed By: #### 51090-1 ####[facility] LAB[facility] [id number] [place] [address] [place] RBC (Bld) [#/Vol]4.17 10*6/uLNormal3.90-5.20[facility] on above:Order Comment: Specimen Type: BLOOD SPECIMENOrdering Facility: [facility] Address:[address] [place], [place] [address]Performed By: #### 69652-7 ####[facility] [id number] [place] [address] [place] AMERICAWBC (Bld) [#/Vol]6.22 10*3/uLNormal3.70-11.00[facility] on above:Order Comment: Specimen Type: BLOOD SPECIMENOrdering Facility: [facility] Address:[address] [place], [place] [address]Performed By: #### 43250-4 ####[facility] LABCLIA [id number] [place] [address] [place] AMERICACNOVon 33-67-9705TABJDcytqf Lima City HospitalCONSULTon 47-11-1703WYDLQFUAelriqEwybgmrct Clinic ClevelandComprehensive metabolic 2000 panelon 91-69-3094Wyhicpn [Mass/Vol]3.5 g/dLLow3.9-4.9COhio[facility] on above:Order Comment: Specimen Type: BLOOD SPECIMENOrdering Facility: [facility] Address:[address] [place], [place] [address]Performed By: #### 29662-3, 3024-7 ####[facility] LABCL[facility] [id number] [place] [address] [place] AMERICAALP [Catalytic activity/Vol]52 U/PNofhql60-813 [facility] on above:Order Comment: Specimen Type: BLOOD SPECIMENOrdering Facility: [facility] Address:[address] [place], [place] [address]Performed By: #### 25386-2, 3024-7 ####[facility]CL[facility] [id number] [place] [address] [place] AMERICAALT [Catalytic activity/Vol]31 U/LNormal7-38[facility] on above:Order Comment: Specimen Type: BLOOD SPECIMENOrdering Facility: [facility] Address:[address] [place], [place] [address]Performed By: #### 80762-1, 3024-7 ####[facility]CL[facility] [id number] [place] [address] [place] Anion gap [Moles/Vol]10 mmol/LNormal9-18[facility] on above:Order Comment: Specimen Type: BLOOD SPECIMENOrdering Facility: [facility] Address:[address] [place], [place] [address]Performed By: #### 09347-8, 7 ####[facility] [id number] [place] [address] [place] AMERICAAST [Catalytic activity/Vol]26 U/PFyrmyn90-33MbvnygzpyOhio State East Hospital on above:Order Comment: Specimen Type: BLOOD SPECIMENOrdering Facility: [facility] Address:[address] [place], [place] [address]Performed By: #### 34403- 8, 7 ####[facility] LABCL[facility] [id number] [facility] [place] [address] [place] AMERICABilirubin [Mass/Vol]0.5 mg/dLNormal0.2-1.3COhio[facility] on above:Order Comment: Specimen Type: BLOOD SPECIMENOrdering Facility: [facility] Address:[address] [place], [place] [address]Performed By: #### 22421-7, 7 ####[facility] [id number] [place] [address] [place] AMERICACalcium [Mass/Vol]9.5 mg/dLNormal 8.5-10.2COhio[facility] on above:Order Comment: Specimen Type: BLOOD SPECIMENOrdering Facility: [facility] Address:[address] [place], [place] [address]Performed By: #### 17831-6, 3023-7 ####[facility]CL[facility] [id number] [place] [address] [place] AMERICAChloride [Moles/Vol]106 mmol/HDkvv33-845KeqnvxeenOhio State East Hospital on above:Order Comment: Specimen Type: BLOOD SPECIMENOrdering Facility: [facility] Address:[address] [place], [place] [address]Performed By: #### 60743-6, 7 ####[facility] LABIA [id number] [place] [address] [place] AMERICACO2 [Moles/Vol]24 mmol/NCrjigx81-76AgjvuombhLima City Hospital Comment on above:Order Comment: Specimen Type: BLOOD SPECIMENOrdering Facility: [facility] Address:[address] [place] [address] Performed By: #### 15573-2, 7 ####[facility] [id number] [place] [address] [place] Creatinine [Mass/Vol]0.75 mg/dLNormal0.58-0.96[facility] HospitalComment on above:Order Comment: Specimen Type: BLOOD SPECIMENOrdering Facility: [facility] Address:[address] [place] [address] Performed By: #### 37644-9, 7 ####[facility] [id number] [address] [place] Creatinine and Glomerular filtration rate.predicted panel (S/P/Bld)83 mL/min/1.73m???Normal>=60[facility] City HospitalComment on above:Order Comment: Specimen Type: BLOOD SPECIMENOrdering Facility: [facility] Address:[address] [place], [place] [address]Result Comment: Estimated Glomerular Filtration Rate (eGFR) is calculated using the 2020 CKD-EPI cre atinine equation. This equation utilizes serum creatinine, sex, and age as parameters. The creatinine assay has traceable calibration to isotope dilution- mass spectrometry. Refer to KDIGO guidelines for clinical interpretation. In patients with unstable renal function, e.g. those with acute kidney injury, the eGFR may not accurately reflect actual GFR.Performed By: #### 74146-2, 3024-7 ####[facility] LABIA [id number] [place] [address] [place] AMERICAGlucose [Mass/Vol]88 mg/dLNormal 74-99[facility] on above:Order Comment: Specimen Type: BLOOD SPECIMENOrdering Facility: [facility] Address:[address] [place], [place] [address]Result Comment: The [place] Diabetes Association (ADA) provides guidance for cutoff [...] unequivocal hyperglycemia, results should be confirmed by repeattesting. In a patient with classic symptoms of hyperglycemia or hyperglycemic crisis, random plasmaglucose results greater than or equal to 200 mg/dL meet the criteria for diagnosis of diabetes.Reference: Standards of Medical Care in Diabetes 2016, [place] Diabetes Association. Diabetes Care. 2016.39(Suppl 1).Performed By: #### 54299- 8, 3027 ####[facility] LABCLIA [id number] [facility] [place] [address] [place] OF AMERICAPotassium [Moles/Vol]4.6 mmol/LNormal3.7-5.1COhio[facility] on above:Order Comment: Specimen Type: BLOOD SPECIMENOrdering Facility: [facility] Address:[address] [place], [place] [address]Performed By: #### 68089-5, 3027 ####[facility] LABCLIA [id number] [address] [facility] [place] [address] [place] AMERICAProtein [Mass/Vol]5.9 g/dLLow 6.3-8.0[facility] on above:Order Comment: Specimen Type: BLOOD SPECIMENOrdering Facility: [facility] Address:[address] [place], [place] [address]Performed By: #### 22106-8, 302-7 ####[facility] LABCLIA [id number] [place] [address] [place] [facility] MEM[facility]IAL HOSPITALSodium [Moles/Vol]140 mmol/DPqguys031-769GkmflscsvOhio State East Hospital on above:Order Comment: Specimen Type: BLOOD SPECIMENOrdering Facility: [facility] Address:[address] [place], [place] [address]Performed By: #### 76058-6, 3024-7 ####[facility] LABCLIA [id number] [place] [address] [place] AMERICAUrea nitrogen [Mass/Vol]13 mg/dLNormal7-21[facility] on above:Order Comment: Specimen Type: BLOOD SPECIMENOrdering Facility: [facility] Address:[address] [place], [place] [address]Performed By: #### 51901-0, 7 ####[facility] LABCLIA [id number] [place] [address] [place] FTODUFVJRM70de 54-00-1153XCJ65SjcoqcAgnjsxwrc [facility] TRANSESOPHAGEALon 10-86-0553IZEN TRANSESOPHAGEALNormalCleveland [facility] NURSING PROGon 12-04-0711CFKTWVI PROGNormalLima City HospitalPT EDon 55-95-1367UJ EDNormalCleveland [facility], [facility] EDNormalCaultman orrville hospitaland [facility] HealthT4 Free SerPl-mCncon 53-41-3526Pors T4 [Mass/Vol]1.1 ng/dLNormal0.9-1.7 [facility] on above:Order Comment: Specimen Type: BLOOD SPECIMENOrdering Facility: [facility] Address:[address] [place], [place] [address]Performed By: #### 20723-8, 7 ####[facility] LABCLIA [id number] [place] [id number] [place] AMERICACBC panel Auto (Bld)on 35-87-7865Rvexxkruzit distribution width (RBC) [Ratio]12.8 %Bjqwul36.5-15.0[facility] ClevelandComment on above: Order Comment: Specimen Type: BLOOD SPECIMENOrdering Facility: [facility] Address:[address] [place], [place] [address]Performed By: #### 06781- 2 ####[facility]IA [id number] [place] [address] [place] [facility] OF [facility]ORIAL HOSPITALHematocrit (Bld) [Volume fraction]38.9 %Ejpdax44.0-46.0[facility] on above:Order Comment: Specimen Type: BLOOD SPECIMENOrdering Facility: [facility] Address:[address] [place], [place] [address]Performed By: #### 02501- 2 ####[facility]IA [id number] [address] OF AMERICAHemoglobin (Bld) [Mass/Vol]12.7 g/eATaivoq76.5-15.5COhioHealth [facility] on above:Order Comment: Specimen Type: BLOOD SPECIMENOrdering Facility: [facility] Address:[address] [place], [place] [address]Performed By: #### 97516-9 ####[facility]IA [id number] [address] ST[address]ETMCH (RBC) [Entitic mass]29.4 pg Kcdsji01.0-34.0[facility] on above:Order Comment: Specimen Type: BLOOD SPECIMENOrdering Facility: [facility] Address:[address] [place], [place] [address]Performed By: #### 02453-1 ####[facility]IA [id number] [address] STATES OF W[facility] MEMORIAL HOSPITALMCHC (RBC) [Mass/Vol]32.6 g/dL Qkngrp68.5-36.0[facility] on above:Order Comment: Specimen Type: BLOOD SPECIMENOrdering Facility: [facility] Address:[address] [place], [place] [address]Performed By: #### 97025-6 ####[facility] LABCLIA [id number] [place] [address] [place] AMERICAMCV (RBC) [Entitic vol]90.0 fL Efpbkj46.0-100.0[facility] on above:Order Comment: Specimen Type: BLOOD SPECIMENOrdering Facility: [facility] Address:[address] [place], [place] [address]Performed By: #### 62070-4 ####[facility] [id number] [place] [address] [place] AMERICANucleated RBC (Bld) [#/Vol] 10*3/uLNormal<0.01[facility] on above:Order Comment: Specimen Type: BLOOD SPECIMENOrdering Facility: [facility] Address:[address] [place], [place] [address]Performed By: #### 80399-8 ####[facility] [id number] [place] [address] [place] AMERICAPlatelet mean volume (Bld) [Entitic vol]10.4 fLNormal9.0-12.7COhioHealth [facility] on above: Order Comment: Specimen Type: BLOOD SPECIMENOrdering Facility: [facility] Address:[address] [place], [place] [address]Performed By: #### 40177- 2 ####[facility] [id number] [place] [address] [place] AMERICAPlatelets (Bld) [#/Vol]143 10*3/dGMhp288-212XyhtyhwhhOhio State East Hospital on above:Order Comment: Specimen Type: BLOOD SPECIMENOrdering Facility: [facility] Address:[address] [place], [place] [address]Performed By: #### 50681-0 ####[facility] LABCLIA [id number] [place] [address] [place] W[facility] MEMORIAL HOSPITALRBC (Bld) [#/Vol]4.32 10*6/uL Normal3.90-5.20[facility] City HospitalComment on above:Order Comment: Specimen Type: BLOOD SPECIMENOrdering Facility: [facility] Address:[address] [place], [place] [address]Performed By: #### 45518-0 ####[facility] LABCLIA [id number] [place] [address] [place] W[facility] MEMORIAL HOSPITALWBC (Bld) [#/Vol]5.61 10*3/uL Normal3.70-11.00[facility] on above:Order Comment: Specimen Type: BLOOD SPECIMENOrdering Facility: [facility] Address:[address] [place], [place] [address]Performed By: #### 19275-6 ####[facility] LABCLIA [id number] [place] [address] [place] [facility]IAL HOSPITALComprehensive metabolic 2000 panelon 25-13-8373Wijlvdw [Mass/Vol]3.6 g/dLLow3.9-4.9CGreene Memorial Hospital Comment on above:Order Comment: Specimen Type: BLOOD SPECIMENOrdering Facility: [facility] Address:[address] [place] [address] Performed By: #### 56566-3, 3016-3 ####[facility] [id number] [place] [address] [place] ALP [Catalytic activity/Vol]59 U/ZYagawu93-231QzangylqpOhio State East Hospital on above:Order Comment: Specimen Type: BLOOD SPECIMENOrdering Facility: [facility] Address:[address] [place] [address] Performed By: #### 16532-3, 3016-3 ####[facility] LABCLIA [id number] [place] [address] [place] ALT [Catalytic activity/Vol]29 U/LNormal7-38[facility] on above:Order Comment: Specimen Type: BLOOD SPECIMENOrdering Facility: [facility] Address:[address] [place], [place] [address]Performed By: #### 75099-1, 3016-3 ####[facility] LABCLIA [id number] [place] [address] [place] AMERICAAnion gap [Moles/Vol]8 mmol/LLow9-18[facility] on above:Order Comment: Specimen Type: BLOOD SPECIMENOrdering Facility: [facility] Address:[address] [place], [place] [address]Performed By: #### 54695-7, 3016-3 ####[facility] LABCLIA [id number] [place] [address] [place] AMERICAAST [Catalytic activity/Vol]27 U/TLoowor38-27 [facility] on above:Order Comment: Specimen Type: BLOOD SPECIMENOrdering Facility: [facility] Address:[address] [place], [place] [address]Performed By: #### 43561-4, 3016-3 ####[facility] LABCLIA [id number] [place] [address] [place] AMERICABilirubin [Mass/Vol]0.5 mg/dLNormal0.2-1.3COhioHealth [facility] on above:Order Comment: Specimen Type: BLOOD SPECIMENOrdering Facility: [facility] Address:[address] [place], [place] [address]Performed By: #### 32651-2, 3016-3 ####[facility] LABCLIA [id number] [place] [address] [place] AMERICACalcium [Mass/Vol]9.1 mg/dLNormal8.5-10.2CGreene Memorial Hospital Comment on above:Order Comment: Specimen Type: BLOOD SPECIMENOrdering Facility: [facility] Address:[address] [place] [address] Performed By: #### 29026-6, 3016-3 ####[facility] LABCLIA [id number] [place] [address] [place] Chloride [Moles/Vol]105 mmol/SQpficy46-955IrlnwkzooOhio State East Hospital on above:Order Comment: Specimen Type: BLOOD SPECIMENOrdering Facility: [facility] Address:[address] [place], [place] [address]Performed By: #### 48501-8, 3016-3 ####[facility] LABCLIA [id number] [place] [address] [place] AMERICACO2 [Moles/Vol]27 mmol/CSilpot27-71DsgqrpbkoOhio State East Hospital on above:Order Comment: Specimen Type: BLOOD SPECIMENOrdering Facility: [facility] Address:[address] [place], [place] [address]Performed By: #### 42961-0, 6-3 ####[facility]CLIA [id number] [place] [address] [place] AMERICACreatinine [Mass/Vol]0.72 mg/dL Normal0.58-0.96[facility] on above:Order Comment: Specimen Type: BLOOD SPECIMENOrdering Facility: [facility] Address:[address] [place], [place] [address]Performed By: #### 56829-5, 6-3 ####[facility] [id number] [place] [address] [place] AMERICACreatinine and Glomerular filtration rate.predicted panel (S/P/Bld)87 mL/min/1.73m???Normal>=60[facility] on above:Order Comment: Specimen Type: BLOOD SPECIMENOrdering Facility: [facility] Address:[address] [place], [place] [address]Result Comment: Estimated Glomerular Filtration Rate (eGFR) is calculated using the 2020 CKD-EPI creatinine equation. This equation utilizes serum creatinine, sex, and age as parameters. The creatinine assay has traceable calibration to isotope dilution-mass spectrometry. Refer to KDIGO guidelines for clinical interpretation. In patients with unstable renal function, e.g. those with acute kidney injury, the eGFR may not accurately reflect actual GFR.Performed By: #### 37210-0, 6-3 ####[facility] LABCLIA [id number] [address] [address] [place] AMERICAGlucose [Mass/Vol]92 mg/nNXfnjul44-12GhocasljrLima City Hospital Comment on above:Order Comment: Specimen Type: BLOOD SPECIMENOrdering Facility: [facility] Address:[address] [place] [id number] Comment: The [place] Diabetes Association (ADA) provides guidance for cutoff values for fasting glucose and random glucose. The ADA defines fasting as no caloric intake for at least 8 hours. Fasting plasma glucose results between 100 to 125 mg/dL indicate increased risk for diabetes (prediabetes).Fasting plasma glucose results greater than or equal to 126 mg/dL meet the criteria for diagno sis of diabetes. In the absence of unequivocal hyperglycemia, results should be confirmed by repeattesting. In a patient with classic symptoms of hyperglycemia or hyperglycemic crisis, random plasmaglucose results greater than or equal to 200 mg/dL meet the criteria for diagnosis of diabetes.Reference: Standards of Medical Care in Diabetes 2016, [place] Diabetes Association. Diabetes Care. 2016.39(Suppl 1).Performed By: #### 05685-4, 3015-3 ####[facility] LABCLIA [id number] [address] [address] [place] AMERICAPotassium [Moles/Vol]4.7 mmol/LNormal3.7-5.1CGreene Memorial HospitalComment on above:Order Comment: Specimen Type: BLOOD SPECIMENOrdering Facility: [facility] Address:[address] [place], [place] [address]Jviysqrzk By: #### 77337-5, 3015-3 ####[facility] LABCLIA [id number] [address] [address] [place] AMERICAProtein [Mass/Vol]5.8 g/dLLow6.3-8.0[facility] on above:Order Comment: Specimen Type: BLOOD SPECIMENOrdering Facility: [facility] Address:[address] [place], [place] [address]Performed By: #### 60206-4, 3016-3 ####[facility] LABCLIA [id number] [place] [address] [place] AMERICASodium [Moles/Vol]140 mmol/ROlyhgn461-362FypuczjrcOhio State East Hospital on above:Order Comment: Specimen Type: BLOOD SPECIMENOrdering Facility: [facility] Address:[address] [place], [place] [address]Performed By: #### 88706-2, 3016-3 ####[facility] LABCLIA [id number] [place] [address] [place] AMERICAUrea nitrogen [Mass/Vol]15 mg/dL Normal7-21[facility] on above:Order Comment: Specimen Type: BLOOD SPECIMENOrdering Facility: [facility] Address:[address] [place], [place] [address]Performed By: #### 54247-5, 3016-3 ####[facility] LABCLIA [id number] [place] [address] [place] [facility] HOSPITALTS SerPl-aCncon 88-45-7028VMD Qn9.850 m[IU]/LHigh 0.270-4.200[facility] on above:Order Comment: Specimen Type: BLOOD SPECIMENOrdering Facility: [facility] Address:[address] [place], [place] [address]Performed By: #### 77450-0, 3016-3 ####[facility] LABCL[facility] [id number] [place] [address] [place] AMERICABacteria Ur Culton 74-27-0770Juijkmbh identified Cx Nom (U)AbnormalOhio State East Hospital on above:Performed By: #### 630-4 ####[facility] LABCLIA [id number] [place] [address] [place] AMERICACBC panel Auto (Bld)on 08-26-2023 Erythrocyte distribution width (RBC) [Ratio]13.1 %Symehv52.5-15.0[facility] City HospitalComment on above:Order Comment: Specimen Type: BLOOD SPECIMENOrdering Facility: [facility] Address:[address] [place], [place] [address]Performed By: #### 79121-5 ####[facility] LABWH[facility] [id number] [place] [address] [place] [facility] MEM[facility]IAL HOSPITALHematocrit (Bld) [Volume fraction]38.5 %Ylpllc65.0-46.0[facility] on above:Order Comment: Specimen Type: BLOOD SPECIMENOrdering Facility: [facility] Address:[address] [place], [place] [address]Performed By: #### 47427-8 ####[facility] [id number] [place] [address] [place] Hemoglobin (Bld) [Mass/Vol]12.8 g/wFVnekpw83.5-15.5CGreene Memorial Hospital Comment on above:Order Comment: Specimen Type: BLOOD SPECIMENOrdering Facility: [facility] Address:[address] [place] [address] Performed By: #### 35527-9 ####[facility] [id number] [place] [address] [place] MCH (RBC) [Entitic mass]30.0 ylCpepnm91.0-34.0[facility] on above:Order Comment: Specimen Type: BLOOD SPECIMENOrdering Facility: [facility] Address:[address] [place] [address] Performed By: #### 35615-3 ####[facility] [id number] [place] [address] [place] MCHC (RBC) [Mass/Vol]33.2 g/fUHmpuld11.5-36.0[facility] on above:Order Comment: Specimen Type: BLOOD SPECIMENOrdering Facility: [facility] Address:[address] [place] [address] Performed By: #### 59029-8 ####[facility]CL[facility] [id number] [place] [address] [place] MCV (RBC) [Entitic vol]90.4 gICsbwzz78.0-100.0[facility] on above:Order Comment: Specimen Type: BLOOD SPECIMENOrdering Facility: [facility] Address:[address] [place] [address] Performed By: #### 68374-0 ####[facility] [id number] [place] [address] [place] Nucleated RBC (Bld) [#/Vol]10*3/uLNormal<0.01[facility] on above:Order Comment: Specimen Type: BLOOD SPECIMENOrdering Facility: [facility] Address:[address] [place] [address] Performed By: #### 84763-7 ####[facility] [id number] [place] [address] [place] Platelet mean volume (Bld) [Entitic vol]10.6 fLNormal9.0-12.7COhioHealth [facility] on above:Order Comment: Specimen Type: BLOOD SPECIMENOrdering Facility: [facility] Address:[address] [place], [place] [address]Performed By: #### 92305-8 ####[facility] [id number] [place] [address] [place] Platelets (Bld) [#/Vol]168 10*3/mLWovtyw872-436ZzdoknhxdOhio State East Hospital on above:Order Comment: Specimen Type: BLOOD SPECIMENOrdering Facility: [facility] Address:[address] [place] [address] Performed By: #### 77579-3 ####[facility] [id number] [place] [address] [place] RBC (Bld) [#/Vol]4.26 10*6/uLNormal3.90-5.20[facility] on above:Order Comment: Specimen Type: BLOOD SPECIMENOrdering Facility: [facility] Address:[address] [place], [place] [address]Performed By: #### 20556-3 ####[facility] [id number] [place] [address] [place] AMERICAWBC (Bld) [#/Vol]7.27 10*3/uLNormal3.70-11.00[facility] on above:Order Comment: Specimen Type: BLOOD SPECIMENOrdering Facility: [facility] Address:[address] [place], [place] [address]Performed By: #### 57175-1 ####[facility] [id number] [place] [address] [place] AMERICACONSULTon 31-47-6086EIMOFAJYpnqua [facility]ima City HospitalComprehensive metabolic 2000 panelon 57-80-4051Pblxdqy [Mass/Vol]3.5 g/dLLow3.9-4.9COhioHealth [facility] on above:Order Comment: Specimen Type: BLOOD SPECIMENOrdering Facility: [facility] Address:[address] [place], [place] [address]Performed By: #### 09974- 8 ####[facility] [id number] [place] [address] [place] AMERICAALP [Catalytic activity/Vol]60 U/BRodhhx53-596TtituihpcOhio State East Hospital on above:Order Comment: Specimen Type: BLOOD SPECIMENOrdering Facility: [facility] Address:[address] [place], [place] [address]Performed By: #### 48697-8 ####[facility] LABCL[facility] [id number] [place] [address] [place] AMERICAALT [Catalytic activity/Vol]25 U/LNormal7-38[facility] on above:Order Comment: Specimen Type: BLOOD SPECIMENOrdering Facility: [facility] Address:[address] [place], [place] [address]Performed By: #### 04309-2 ####[facility]CL[facility] [id number] [place] [address] [place] AMERICAAnion gap [Moles/Vol]10 mmol/LNormal9-18[facility] on above:Order Comment: Specimen Type: BLOOD SPECIMENOrdering Facility: [facility] Address:[address] [place], [place] [address]Performed By: #### 87664-3 ####[facility]CL[facility] [id number] [place] [address] [place] AST [Catalytic activity/Vol]22 U/VWgdukx72-42GzdkdpjfyOhio State East Hospital on above:Order Comment: Specimen Type: BLOOD SPECIMENOrdering Facility: [facility] Address:[address] [place] [address] Performed By: #### 01399-5 ####[facility]CL[facility] [id number] [place] [address] [place] Bilirubin [Mass/Vol]0.4 mg/dLNormal0.2-1.3COhioHealth [facility] on above:Order Comment: Specimen Type: BLOOD SPECIMENOrdering Facility: [facility] Address:[address] [place], [place] [address]Performed By: #### 89967-9 ####[facility]CL[facility] [id number] [place] [address] [place] AMERICACalcium [Mass/Vol]8.9 mg/dLNormal8.5-10.2COhioHealth [facility] on above:Order Comment: Specimen Type: BLOOD SPECIMENOrdering Facility: [facility] Address:[address] [place], [place] [address]Performed By: #### 48712-2 ####[facility] LABCL[facility] [id number] [place] [address] [place] AMERICAChloride [Moles/Vol]104 mmol/L Nbenhm73-770KdskjqopjOhio State East Hospital on above:Order Comment: Specimen Type: BLOOD SPECIMENOrdering Facility: [facility] Address:[address] [place], [place] [address]Performed By: #### 65904-2 ####[facility]CL[facility] [id number] [place] [address] [place] AMERICACO2 [Moles/Vol]26 mmol/KDfklcu05-61JuifjumheOhio State East [facility] on above:Order Comment: Specimen Type: BLOOD SPECIMENOrdering Facility: [facility] Address:[address] [place], [place] [address]Performed By: #### 27448-5 ####[facility] [id number] [place] [address] [place] Creatinine [Mass/Vol]0.84 mg/dLNormal0.58-0.96[facility] on above:Order Comment: Specimen Type: BLOOD SPECIMENOrdering Facility: [facility] Address:[address] [place] [address] Performed By: #### 96324-4 ####[facility] [id number] [place] [address] [place] Creatinine and Glomerular filtration rate.predicted panel (S/P/Bld)73 mL/min/1.73m???Normal>=60[facility] on above:Order Comment: Specimen Type: BLOOD SPECIMENOrdering Facility: [facility] Address:[address] [place], [place] [address]Result Comment: Estimated Glomerular Filtration Rate (eGFR) is calculated using the 2020 CKD-EPI cre atinine equation. This equation utilizes serum creatinine, sex, and age as parameters. The creatinine assay has traceable calibration to isotope dilution- mass spectrometry. Refer to [facility] guidelines for clinical interpretation. In patients with unstable renal function, e.g. those with acute kidney injury, the eGFR may not accurately reflect actual GFR.Performed By: #### 75148-3 ####[facility] [id number] [place] [id number] [place] OF AMERICAGlucose [Mass/Vol]93 mg/dLNormal 74-99[facility] on above:Order Comment: Specimen Type: BLOOD SPECIMENOrdering Facility: [facility] Address:[address] [place], [place] [address]Result Comment: The [place] Diabetes Association (ADA) provides guidance for cutoff [...] unequivocal hyperglycemia, results should be confirmed by repeattesting. In a patient with classic symptoms of hyperglycemia or hyperglycemic crisis, random plasmaglucose results greater than or equal to 200 mg/dL meet the criteria for diagnosis of diabetes.Reference: Standards of Medical Care in Diabetes 2016, [place] Diabetes Association. Diabetes Care. 2016.39(Suppl 1).Performed By: #### 87393-9 ####[facility] [id number] [place] [id number] [place] AMERICAPotassium [Moles/Vol]4.4 mmol/L Normal3.7-5.1COhio[facility] on above:Order Comment: Specimen Type: BLOOD SPECIMENOrdering Facility: [facility] Address:[address] [place], [place] [address]Performed By: #### 07905-3 ####[facility] [id number] [place] [id number] [place] AMERICAProtein [Mass/Vol]5.7 g/dLLow6.3-8.0[facility] on above:Order Comment: Specimen Type: BLOOD SPECIMENOrdering Facility: [facility] Address:[address] [place], [place] [address]Performed By: #### 09345-5 ####[facility] LABCL[facility] [id number] [place] [address] [place] Sodium [Moles/Vol]140 mmol/TVacwvu646-000FczrmzeadOhio State East Hospital on above:Order Comment: Specimen Type: BLOOD SPECIMENOrdering Facility: [facility] Address:[address] [place], [place] [address]Performed By: #### 07912-6 ####[facility] [id number] [place] [address] [place] AMERICAUrea nitrogen [Mass/Vol]19 mg/dLNormal7-21[facility] on above:Order Comment: Specimen Type: BLOOD SPECIMENOrdering Facility: [facility] Address:[address] [place], [place] [address]Performed By: #### 27146- 8 ####[facility] LABCL[facility] [id number] [place] [address] [place] AMERICACASE MGT INIT ASSESon 08-25-2023 CASE MGT INIT ASSSilver Lake Medical Center, Ingleside CampusalCProMedica Toledo Hospital panel Auto (Bld)on 05-06-7684Uktortsflbw distribution width (RBC) [Ratio]12.9 %Gzrzay86.5-15.0 [facility] on above:Order Comment: Specimen Type: BLOOD SPECIMENOrdering Facility: [facility] Address:[address] [place], [place] [address]Performed By: #### 40191-0 ####[facility]CL[facility] [id number] [place] [address] [place] AMERICAHematocrit (Bld) [Volume fraction]37.8 %Vlbrrq72.0-46.0[facility] on above:Order Comment: Specimen Type: BLOOD SPECIMENOrdering Facility: [facility] Address:[address] [place], [place] [address]Performed By: #### 95874-6 ####[facility] [id number] [place] [address] [place] Hemoglobin (Bld) [Mass/Vol]12.8 g/yPIzfkwm80.5-15.5CGreene Memorial Hospital Comment on above:Order Comment: Specimen Type: BLOOD SPECIMENOrdering Facility: [facility] Address:[address] [place] [address] Performed By: #### 90445-1 ####[facility] [id number] [place] [address] [place] MCH (RBC) [Entitic mass]29.9 rrRwhhmt34.0-34.0[facility] on above:Order Comment: Specimen Type: BLOOD SPECIMENOrdering Facility: [facility] Address:[address] [place] [address] Performed By: #### 01447-8 ####[facility] [id number] [place] [address] [place] MCHC (RBC) [Mass/Vol]33.9 g/zXGxedhe24.5-36.0[facility] Healthment on above:Order Comment: Specimen Type: BLOOD SPECIMENOrdering Facility: [facility] Address:[address] [place] [address] Performed By: #### 05364-9 ####[facility] [id number] [place] [address] [place] MCV (RBC) [Entitic vol]88.3 zMJculap92.0-100.0[facility] on above:Order Comment: Specimen Type: BLOOD SPECIMENOrdering Facility: [facility] Address:[address] [place] [address] Performed By: #### 11437-1 ####[facility]CL[facility] [id number] [place] [address] [place] Nucleated RBC (Bld) [#/Vol]10*3/uLNormal<0.01[facility] on above:Order Comment: Specimen Type: BLOOD SPECIMENOrdering Facility: [facility] Address:[address] [place] [address] Performed By: #### 36786-4 ####[facility] [id number] [place] [address] [place] Platelet mean volume (Bld) [Entitic vol]10.1 fLNormal9.0-12.7COhioHealth [facility] on above:Order Comment: Specimen Type: BLOOD SPECIMENOrdering Facility: [facility] Address:[address] [place], [place] [address]Performed By: #### 41927-4 ####[facility] [id number] [place] [address] [place] Platelets (Bld) [#/Vol]173 10*3/xRJqsirx797-009GgteacmbcOhio State East Hospital on above:Order Comment: Specimen Type: BLOOD SPECIMENOrdering Facility: [facility] Address:[address] [place] [address] Performed By: #### 15938-5 ####[facility] [id number] [place] [address] [place] RBC (Bld) [#/Vol]4.28 10*6/uLNormal3.90-5.20[facility] on above:Order Comment: Specimen Type: BLOOD SPECIMENOrdering Facility: [facility] Address:[address] [place], [place] [address]Performed By: #### 13401-6 ####[facility] [id number] [place] [address] [place] AMERICAWBC (Bld) [#/Vol]6.38 10*3/uLNormal3.70-11.00[facility] on above:Order Comment: Specimen Type: BLOOD SPECIMENOrdering Facility: [facility] Address:[address] [place], [place] [address]Performed By: #### 66247-4 ####[facility] [id number] [place] [address] [place] AMERICAComprehensive metabolic 2000 panelon 59-36-8810Jozrolq [Mass/Vol]3.4 g/dLLow3.9-4.9CGreene Memorial Hospital Comment on above:Order Comment: Specimen Type: BLOOD SPECIMENOrdering Facility: [facility] Address:[address] [place] [address] Performed By: #### 85671-1, 53310-9 ####[facility] [id number] [place] [address] [place] ALP [Catalytic activity/Vol]48 U/ARnbxnq14-561VixdllqlaOhio State East Hospital on above:Order Comment: Specimen Type: BLOOD SPECIMENOrdering Facility: [facility] Address:[address] [place] [address] Performed By: #### 48608-3, 79479-9 ####[facility] [id number] [place] [address] [place] ALT [Catalytic activity/Vol]26 U/LNormal7-38[facility] HospitalCommarlette regional hospital on above:Order Comment: Specimen Type: BLOOD SPECIMENOrdering Facility: [facility] Address:[address] [place], [place] [address]Performed By: #### 26373-3, 68448-7 ####[facility]CL[facility] [id number] [place] [address] [place] AMERICAAnion gap [Moles/Vol] 10 mmol/LNormal9-18[facility] on above:Order Comment: Specimen Type: BLOOD SPECIMENOrdering Facility: [facility] Address:[address] [place], [place] [address]Performed By: #### 58650-4, 77009-9 ####[facility]CL[facility] [id number] [place] [id number] [place] AMERICAAST [Catalytic activity/Vol]23 U/PBxunfa88-65HlkxjovduLima City HospitalComment on above:Order Comment: Specimen Type: BLOOD SPECIMENOrdering Facility: [facility] Address:[address] [place], [place] [address]Performed By: #### 98098-5, 40416-2 ####[facility] [id number] [place] [address] [place] AMERICABilirubin [Mass/Vol]0.9 mg/dLNormal0.2-1.3 [facility] HospitalComment on above:Order Comment: Specimen Type: BLOOD SPECIMENOrdering Facility: [facility] Address:[address] [place], [place] [address]Performed By: #### 30349-5, 90251-8 ####[facility] [id number] [place] [address] [place] AMERICACalcium [Mass/Vol]9.0 mg/dLNormal8.5-10.2COhioHealth [facility] on above:Order Comment: Specimen Type: BLOOD SPECIMENOrdering Facility: [facility] Address:[address] [place], [place] [address]Performed By: #### 11131-7, 87410-0 ####[facility] [id number] [place] [id number] [place] AMERICAChloride [Moles/Vol]97 mmol/BHroxxl98-261JrphahdxnLima City Hospital Comment on above:Order Comment: Specimen Type: BLOOD SPECIMENOrdering Facility: [facility] Address:[address] [place] [address] Performed By: #### 59815-5, 09052-7 ####[facility] [id number] [place] [address] [place] CO2 [Moles/Vol]29 mmol/FBnwtpd42-81CmuiscwhjOhio State East Hospital on above: Order Comment: Specimen Type: BLOOD SPECIMENOrdering Facility: [facility] Address:[address] [place], [place] [address]Performed By: #### 66817- 9, ####[facility] LABCL[facility] [id number] [facility] CLINICDeyan[place] [address] [place] AMERICACreatinine [Mass/Vol] 1.02 mg/dLHigh0.58-0.96[facility] on above:Order Comment: Specimen Type: BLOOD SPECIMENOrdering Facility: [facility] Address:[address] [place], [place] [address]Performed By: #### 09741-3, ####[facility] [id number] [place] [address] [place] AMERICACreatinine and Glomerular filtration rate.predicted panel (S/P/Bld)57 mL/min/1.73m???Low>=60[facility] on above:Order Comment: Specimen Type: BLOOD SPECIMENOrdering Facility: [facility] Address:[address] [place], [place] [address]Result Comment: Estimated Glomerular Filtration Rate (eGFR) is calculated using the 2020 CKD-EPI creatinine equation. This equation utilizes serum creatinine, sex, and age as parameters. The creatinine assay has traceable calibration to isotope dilution-mass spectrometry. Refer to KDIGO guidelines for clinical interpretation. In patients with unstable renal function, e.g. those with acute kidney injury, the eGFR may not accurately reflect actual GFR.Performed By: #### 14672-0, 05873-0 ####[facility] [id number] [place] [address] [place] AMERICAGlucose [Mass/Vol]84 mg/gTVhyikv43-20FxrwkbootLima City Hospital Comment on above:Order Comment: Specimen Type: BLOOD SPECIMENOrdering Facility: [facility] Address:[address] [place], [place] [address]Result Comment: The [place] Diabetes Association (ADA) provides guidance for cutoff values for fasting glucose and random glucose. The ADA defines fasting as no caloric intake for at least 8 hours. Fasting plasma glucose results between 100 to 125 mg/dL indicate increased risk for diabetes (prediabetes).Fasting plasma glucose results greater than or equal to 126 mg/dL meet the criteria for diagno sis of diabetes. In the absence of unequivocal hyperglycemia, results should be confirmed by repeattesting. In a patient with classic symptoms of hyperglycemia or hyperglycemic crisis, random plasmaglucose results greater than or equal to 200 mg/dL meet the criteria for diagnosis of diabetes.Reference: Standards of Medical Care in Diabetes 2016, [place] Diabetes Association. Diabetes Care. 2016.39(Suppl 1).Performed By: #### 46211-1, 14944-1 ####[facility] [id number] [place] [address] [place] AMERICAPotassium [Moles/Vol]3.4 mmol/LLow3.7-5.1CGreene Memorial HospitalComment on above:Order Comment: Specimen Type: BLOOD SPECIMENOrdering Facility: [facility] Address:[address] [place], [place] [address]Performed By: #### 97580-1, ####[facility] [id number] [place] [address] [place] AMERICAProtein [Mass/Vol]5.7 g/dLLow6.3-8.0[facility] on above:Order Comment: Specimen Type: BLOOD SPECIMENOrdering Facility: [facility] Address:[address] [place], [place] [address]Performed By: #### 02689-4, ####[facility] [id number] [place] [address] [place] AMERICASodium [Moles/Vol]136 mmol/XUvmofe690-613ZxpzzegwiOhio State East Hospital on above:Order Comment: Specimen Type: BLOOD SPECIMENOrdering Facility: [facility] Address:[address] [place], [place] [address]Performed By: #### 23698-5, 66321-8 ####[facility] [id number] [place] [address] [place] AMERICAUrea nitrogen [Mass/Vol]22 mg/dL High7-21Sum[facility] Healthment on above:Order Comment: Specimen Type: BLOOD SPECIMENOrdering Facility: [facility] Address:[address] [place], [place] [address]Performed By: #### 58325-8, 90334-4 ####[facility] [id number] [place] [address] [place] AMERICAMagnesium SerPl-mCncon 25-83-0004Jcwlbuzih [Mass/Vol]2.2 mg/dLNormal1.7-2.3COhioHealth [facility] on above:Order Comment: Specimen Type: BLOOD SPECIMENOrdering Facility: [facility] Address:[address] [place], [place] [address]Performed By: #### 47916- 9, 34918-1 ####[facility] [id number] [facility] [place] [address] [place] AMERICAPOTASSIUM BLDon 88-48-2129Njiepoeds [Moles/Vol]4.3 mmol/LNormal3.7-5.1CGreene Memorial Hospital Comment on above:Order Comment: Specimen Type: BLOOD SPECIMENOrdering Facility: [facility] Address:[address] [place] [address] Performed By: #### K1 ####[facility] [id number] [place] [address] [place] AMERICAUS KIDNEY/BLADDERon 99-93-9381QP KIDNEY/BLADDERNormalCProMedica [facility] Hospital W Auto Differential panel (Bld)on 87-14-4211Cxbviykkv (Bld) [#/Vol]0.03 10*3/uL Normal<0.11CGreene Memorial HospitalComment on above:Order Comment: Specimen Type: BLOOD SPECIMENOrdering Facility: [facility] Address:[address] [place], [place] [address]Performed By: #### 13323-4 ####[facility] [id number] [place] [address] [place] AMERICABasophils/100 WBC (Bld)0.4 %NormalOhio State East Hospital on above:Order Comment: Specimen Type: BLOOD SPECIMENOrdering Facility: [facility] Address:[address] [place], [place] [address]Performed By: #### 15356-3 ####[facility] [id number] [place] [address] [place] Differential cell count method Nom (Bld)AutoNormalClevelNovant Health Mint [facility] Comment on above:Order Comment: Specimen Type: BLOOD SPECIMENOrdering Facility: [facility] Address:[address] [place] [address] Performed By: #### 51970-5 ####[facility] [id number] [place] [address] [place] Eosinophils (Bld) [#/Vol]0.03 10*3/uLNormal<0.46[facility] Comment on above:Order Comment: Specimen Type: BLOOD SPECIMENOrdering Facility: [facility] Address:[address] [place] [address] Performed By: #### 47656-4 ####[facility] [id number] [place] [address] [place] Eosinophils/100 WBC (Bld)0.4 %NormalLima City HospitalCommarlette regional hospital on above: Order Comment: Specimen Type: BLOOD SPECIMENOrdering Facility: [facility] Address:[address] [place], [place] [address]Performed By: #### 63237- 8 ####[facility] [id number] [place] [address] [place] AMERICAErythrocyte distribution width (RBC) [Ratio]12.7 %Dqbhjh73.5-15.0[facility] on above: Order Comment: Specimen Type: BLOOD SPECIMENOrdering Facility: [facility] Address:[address] [place], [place] [address]Performed By: #### 43931- 8 ####[facility] [id number] [place] [address] [place] AMERICAHematocrit (Bld) [Volume fraction]40.4 %Orwyoh86.0-46.0[facility] on above:Order Comment: Specimen Type: BLOOD SPECIMENOrdering Facility: [facility] Address:[address] [place], [place] [address]Performed By: #### 42733- 8 ####[facility] [id number] [place] [address] [place] AMERICAHemoglobin (Bld) [Mass/Vol]13.2 g/gWKhwqkw37.5-15.5COhioHealth [facility] on above:Order Comment: Specimen Type: BLOOD SPECIMENOrdering Facility: [facility] Address:[address] [place], [place] [address]Performed By: #### 64013-7 ####[facility] LABWH[facility] [id number] [place] [address] [place] AMERICAImmature granulocytes (Bld) [#/Vol]10*3/uLNormal<0.10[facility] on above:Order Comment: Specimen Type: BLOOD SPECIMENOrdering Facility: [facility] Address:[address] [place], [place] [address]Performed By: #### 13026- 8 ####[facility] [id number] [place] [id number] [place] AMERICAImmature granulocytes/100 WBC (Bld)0.3 %NormalOhio State East Hospital on above:Order Comment: Specimen Type: BLOOD SPECIMENOrdering Facility: [facility] Address:[address] [place], [place] [address]Performed By: #### 61015-3 ####[facility] [id number] [place] [address] [place] AMERICALymphocytes (Bld) [#/Vol]1.73 10*3/uLNormal1.00-4.00[facility] on above:Order Comment: Specimen Type: BLOOD SPECIMENOrdering Facility: [facility] Address:[address] [place], [place] [address]Performed By: #### 18336-6 ####[facility] [id number] [place] [address] [place] AMERICALymphocytes/100 WBC (Bld)23.4 % NormalOhio State East Hospital on above:Order Comment: Specimen Type: BLOOD SPECIMENOrdering Facility: [facility] Address:[address] [place], [place] [address]Performed By: #### 06411-9 ####[facility] [id number] [place] [address] [place] AMERICAMCH (RBC) [Entitic mass]29.3 jwUgnfxp41.0-34.0[facility] on above:Order Comment: Specimen Type: BLOOD SPECIMENOrdering Facility: [facility] Address:[address] [place], [place] [address]Performed By: #### 63997-7 ####[facility] [id number] [place] [address] [place] MCHC (RBC) [Mass/Vol]32.7 g/aXMjwfqk67.5-36.0[facility] on above:Order Comment: Specimen Type: BLOOD SPECIMENOrdering Facility: [facility] Address:[address] [place] [address] Performed By: #### 40241-2 ####[facility] [id number] [place] [address] [place] MCV (RBC) [Entitic vol]89.8 tCFitcqu58.0-100.0[facility] on above:Order Comment: Specimen Type: BLOOD SPECIMENOrdering Facility: [facility] Address:[address] [place] [address] Performed By: #### 83164-7 ####[facility] [id number] [place] [address] [place] Monocytes (Bld) [#/Vol]0.77 10*3/uLNormal<0.87[facility] on above:Order Comment: Specimen Type: BLOOD SPECIMENOrdering Facility: [facility] Address:[address] [place] [address] Performed By: #### 38291-3 ####[facility] [id number] [place] [address] [place] Monocytes/100 WBC (Bld)10.4 %NormalOhio State East Hospital on above: Order Comment: Specimen Type: BLOOD SPECIMENOrdering Facility: [facility] Address:[address] [place], [place] [address]Performed By: #### 78531- 8 ####[facility] [id number] [place] [address] [place] AMERICANeutrophils (Bld) [#/Vol]4.82 10*3/uLNormal1.45-7.50[facility] on above:Order Comment: Specimen Type: BLOOD SPECIMENOrdering Facility: [facility] Address:[address] [place], [place] [address]Performed By: #### 61512-5 ####[facility] [id number] [place] [address] [place] AMERICANeutrophils/100 WBC (Bld)65.1 % NormalOhio State East Hospital on above:Order Comment: Specimen Type: BLOOD SPECIMENOrdering Facility: [facility] Address:[address] [place], [place] [address]Performed By: #### 61195-9 ####[facility] [id number] [place] [address] [place] AMERICANucleated RBC (Bld) [#/Vol]10*3/uLNormal<0.01[facility] on above:Order Comment: Specimen Type: BLOOD SPECIMENOrdering Facility: [facility] Address:[address] [place], [place] [address]Performed By: #### 13034-2 ####[facility] [id number] [place] [address] [place] Nucleated RBC/100 WBC (Bld) [Ratio]0.0 /100 WBCNormalCGreene Memorial Hospital Comment on above:Order Comment: Specimen Type: BLOOD SPECIMENOrdering Facility: [facility] Address:[address] [place] [address] Performed By: #### 48129-6 ####[facility] [id number] [place] [address] [place] Platelet mean volume (Bld) [Entitic vol]10.4 fLNormal9.0-12.7COhioHealth [facility] on above:Order Comment: Specimen Type: BLOOD SPECIMENOrdering Facility: [facility] Address:[address] [place], [place] [address]Performed By: #### 65348-7 ####[facility] [id number] [place] [address] [place] Platelets (Bld) [#/Vol]201 10*3/zKYyzfpd510-000YfbopvcgjOhio State East Hospital on above:Order Comment: Specimen Type: BLOOD SPECIMENOrdering Facility: [facility] Address:[address] [place] [address] Performed By: #### [id number] ####[facility] [id number] [place] [address] [place] RBC (Bld) [#/Vol]4.50 10*6/uLNormal3.90-5.20[facility] on above:Order Comment: Specimen Type: BLOOD SPECIMENOrdering Facility: [facility] Address:[address] [place], [place] [address]Performed By: #### [id number] ####[facility] [id number] [place] [address] [place] AMERICAWBC (Bld) [#/Vol]7.40 10*3/uLNormal3.70-11.00[facility] on above:Order Comment: Specimen Type: BLOOD SPECIMENOrdering Facility: [facility] Address:[address] [place], [place] [address]Performed By: #### [id number] ####[facility] [id number] [place] [address] [place] AMERICACNPNon [id number] [facility]prehensive metabolic 2000 panelon [id number] [Mass/Vol]3.8 g/dLLow3.9-4.9COhioHealth [facility] Center on above:Order Comment: Specimen Type: BLOOD SPECIMENOrdering Facility: [facility] Address:[address] [place], [place] [address]Performed By: #### 08187- 8 ####[facility] [id number] [place] [address] [place] OF AMERICAALP [Catalytic activity/Vol]61 U/KHytoiw16-733HxiflfjjnOhio State East Hospital on above:Order Comment: Specimen Type: BLOOD SPECIMENOrdering Facility: [facility] Address:[address] [place], [place] [address]Performed By: #### 44043-0 ####[facility] [id number] [place] [address] [place] AMERICAALT [Catalytic activity/Vol]34 U/LNormal7-38[facility] on above:Order Comment: Specimen Type: BLOOD SPECIMENOrdering Facility: [facility] Address:[address] [place], [place] [address]Performed By: #### 20469-5 ####[facility] [id number] [place] [address] [place] AMERICAAnion gap [Moles/Vol]8 mmol/LLow9-18[facility] on above:Order Comment: Specimen Type: BLOOD SPECIMENOrdering Facility: [facility] Address:[address] [place], [place] [address]Performed By: #### 83499-3 ####[facility] [id number] [place] [address] [place] AST [Catalytic activity/Vol]27 U/BLjuoat24-51JywdlzeaxOhio State East Hospital on above:Order Comment: Specimen Type: BLOOD SPECIMENOrdering Facility: [facility] Address:[address] [place] [address] Performed By: #### 61603-8 ####[facility] [id number] [place] [address] [place] Bilirubin [Mass/Vol]0.7 mg/dLNormal0.2-1.3COhio[facility] on above:Order Comment: Specimen Type: BLOOD SPECIMENOrdering Facility: [facility] Address:[address] [place], [place] [address]Performed By: #### 22891-4 ####[facility] [id number] [place] [address] [place] AMERICACalcium [Mass/Vol]9.2 mg/dLNormal8.5-10.2COhio[facility] on above:Order Comment: Specimen Type: BLOOD SPECIMENOrdering Facility: [facility] Address:[address] [place], [place] [address]Performed By: #### 85802-8 ####[facility] [id number] [place] [address] [place] AMERICAChloride [Moles/Vol]97 mmol/L Xnaxlm52-757VujscjlfnOhio State East Hospital on above:Order Comment: Specimen Type: BLOOD SPECIMENOrdering Facility: [facility] Address:[address] [place], [place] [address]Performed By: #### 37848-6 ####[facility] [id number] [place] [address] [place] AMERICACO2 [Moles/Vol]32 mmol/HDafc34-49EnblfesljOhio State East Hospital on above:Order Comment: Specimen Type: BLOOD SPECIMENOrdering Facility: [facility] Address:[address] [place], [place] [address]Performed By: #### 54674-0 ####[facility] [id number] [place] [address] [place] Creatinine [Mass/Vol]1.11 mg/dLHigh0.58-0.96[facility] on above:Order Comment: Specimen Type: BLOOD SPECIMENOrdering Facility: [facility] Address:[address] [place], [place] [address]Performed By: #### 75619-6 ####[facility] [id number] [place] [address] [place] AMERICACreatinine and Glomerular filtration rate.predicted panel (S/P/Bld)52 mL/min/1.73m???Low>=60 [facility] on above:Order Comment: Specimen Type: BLOOD SPECIMENOrdering Facility: [facility] Address:[address] [place], [place] [address]Result Comment: Estimated Glomerular Filtration Rate (eGFR) is calculated using the 2020 CKD-EPI creatinine equation. This equation utilizes serum creatinine, sex, and age as parameters. The creatinine assay has traceable calibration to isotope dilution-mass spectrometry. Refer to KDIGO guidelines for clinical interpretation. In patients with unstable renal function, e.g. those with acute kidney injury, the eGFR may not accurately reflect actual GFR.Performed By: #### 85426-6 ####[facility]IA [id number] [place] [address] [place] AMERICAGlucose [Mass/Vol]123 mg/aHRigy47-04ChghqjetvLima City HospitalComment on above:Order Comment: Specimen Type: BLOOD SPECIMENOrdering Facility: [facility] Address:[address] [place], [place] [address]Result Comment: The [place] Diabetes Association (ADA) provides guidance for cutoff [...] unequivocal hyperglycemia, results should be confirmed by repeattesting. In a patient with classic symptoms of hyperglycemia or hyperglycemic crisis, random plasmaglucose results greater than or equal to 200 mg/dL meet the criteria for diagnosis of diabetes.Reference: Standards of Medical Care in Diabetes 2016, [place]ryde[place] Diabetes Association. Diabetes Care. 2016.39(Suppl 1).Performed By: #### 71617-3 ####[facility]IA [id number] [place] [address] [place] AMERICAPotassium [Moles/Vol]3.7 mmol/LNormal3.7-5.1CGreene Memorial Hospital Comment on above:Order Comment: Specimen Type: BLOOD SPECIMENOrdering Facility: [facility] Address:[address] [place] [address] Performed By: #### 31931-8 ####[facility] [id number] [place] [address] [place] Protein [Mass/Vol]6.1 g/dLLow6.3-8.0[facility] on above: Order Comment: Specimen Type: BLOOD SPECIMENOrdering Facility: [facility] Address:[address] [place], [place] [address]Performed By: #### 54973- 8 ####[facility] [id number] [place] [address] [place] AMERICASodium [Moles/Vol]137 mmol/L Lolprl344-384IpkumtxndOhio State East Hospital on above:Order Comment: Specimen Type: BLOOD SPECIMENOrdering Facility: [facility] Address:[address] [place], [place] [address]Performed By: #### 07864-8 ####[facility] [id number] [place] [address] [place] AMERICAUrea nitrogen [Mass/Vol]21 mg/dLNormal7-21[facility] on above:Order Comment: Specimen Type: BLOOD SPECIMENOrdering Facility: [facility] Address:[address] [place], [place] [address]Performed By: #### 48084-5 ####[facility] [id number] [place] [address] [place] AMERICADIGOXIN/LANOXINon 82-10-8355Lhpkntt [Mass/Vol]1.1 ng/mLNormal0.6-1.2 [facility] on above:Order Comment: Specimen Type: BLOOD SPECIMENOrdering Facility: [facility] Address:[address] [place], [place] [address]Result Comment: Provided therapeutic concentrations are based on the 2008 ESC Guidelines for the Diagnosis and Treatment of Acute and Chronic Heart Failure.Reference ranges and high/low indicator flags are provided as general guidelines only. The treating physician must determine appropriate targetlevels/dosing based on the specific clinical situation.Performed By: #### DIG ####[facility] [id number] [place] [address] [place] AMERICAHISTORY PHYSICALon 08-24-2023 HISTORY PHYSICALNormalCGreene Memorial HospitalURINALYSIS, DIPSTICK ONLYon 50-98-4886Umdndwjmj Ql (U)NegativeNormalNegativeLima City Hospital Comment on above:Order Comment: Specimen Type: URINE SPECIMENOrdering Facility: [facility] Address:[address] [place] [address] Performed By: #### UA ####[facility] [id number] [place] [address] [place] AMERICAClarity (Unsp spec)CloudyAbnormalClearCGreene Memorial HospitalCommarlette regional hospital on above:Order Comment: Specimen Type: URINE SPECIMENOrdering Facility: [facility] Address:[address] [place], [place] [address]Performed By: #### UA ####[facility] [id number] [place] [address] [place] AMERICAColor (U)YellowNormalYNationwide Children's Hospital on above:Order Comment: Specimen Type: URINE SPECIMENOrdering Facility: [facility] Address:[address] [place], [place] [address]Performed By: #### UA ####[facility] [id number] [place] [address] [place] AMERICAGlucose Test strip (U) [Mass/Vol]NegativeNormalNegThe [facility] on above:Order Comment: Specimen Type: URINE SPECIMENOrdering Facility: [facility] Address:[address] [place], [place] [address]Performed By: #### UA ####[facility] [id number] [place] [address] [place] Hemoglobin Ql (U)TraceAbnormalNegThe [facility] on above:Order Comment: Specimen Type: URINE SPECIMENOrdering Facility: [facility] Address:[address] [place], [place] [address]Performed By: #### UA ####[facility] [id number] [place] [address] [place] WYANDOT MEMORIAL HOSPITALKetones Ql (U)TraceAbnormal NegativeOhio State East Hospital on above:Order Comment: Specimen Type: URINE SPECIMENOrdering Facility: [facility] Address:[address] [place], [place] [address]Performed By: #### UA ####[facility] [id number] [place] [address] [place] AMERICALeukocyte esterase Test strip Ql (U)1+AbnormalNegativeOhio State East Hospital on above:Order Comment: Specimen Type: URINE SPECIMENOrdering Facility: [facility] Address:[address] [place], [place] [address]Performed By: #### UA ####[facility] [id number] [place] [address] [place] AMERICANitrite Ql (U)NegativeNormalNegativeOhio State East Hospital on above:Order Comment: Specimen Type: URINE SPECIMENOrdering Facility: [facility] Address:[address] [place], [place] [address]Performed By: #### UA ####[facility] [id number] [place] [address] [place] W[facility] MEM[facility]IAL HOSPITALpH (U)5.5 [pH]Normal<8.5COhioHealth [facility] on above:Order Comment: Specimen Type: URINE SPECIMENOrdering Facility: [facility] Address:[address] [place], [place] [address]Performed By: #### UA ####[facility] [id number] [place] [address] [place] AMERICAProtein (U) [Mass/Vol]1+AbnormalNegativeLima City Hospital Comment on above:Order Comment: Specimen Type: URINE SPECIMENOrdering Facility: [facility] Address:[address] [place] [address] Performed By: #### UA ####[facility] [id number] [place] [address] [place] W[facility]IAL HOSPITALSpecific gravity (U) [Rel density]1.702Fxzsde7.005-1.030[facility] on above:Order Comment: Specimen Type: URINE SPECIMENOrdering Facility: [facility] Address:[address] [place] [address] Performed By: #### UA ####[facility] [id number] [place] [address] [place] WY[facility] MEMORIAL HOSPITALUrobilinogen Ql (U)1.0 EU/dLNormal0.2-1.0 EU/dLOhio State East Hospital on above:Order Comment: Specimen Type: URINE SPECIMENOrdering Facility: [facility] Address:[address] [place], [place] [address]Performed By: #### UA ####[facility] [id number] [address]CBC panel Auto (Bld)on 08-23-2023 Erythrocyte distribution width (RBC) [Ratio]12.9 %Hqffky99.5-15.0[facility] on above:Order Comment: Specimen Type: BLOOD SPECIMENOrdering Facility: [facility] Address:[address] [place], [place] [address]Performed By: #### 29990-1 ####[facility] LABWH[facility] [id number] [address] STATES [facility] HOSPITALHematocrit (Bld) [Volume fraction]43.4 %Owijft74.0-46.0[facility] on above:Order Comment: Specimen Type: BLOOD SPECIMENOrdering Facility: [facility] Address:[address] [place], [place] [address]Performed By: #### 05327-2 ####[facility] LABWH[facility] [id number] [address] [address] [place] Hemoglobin (Bld) [Mass/Vol]14.4 g/gCUfrjum84.5-15.5CGreene Memorial Hospital Comment on above:Order Comment: Specimen Type: BLOOD SPECIMENOrdering Facility: [facility] Address:[address] [place] [address] Performed By: #### 41422-7 ####[facility]IA [id number] [place] [address] [place] MCH (RBC) [Entitic mass]30.3 qzGrkjot12.0-34.0Summa Healthment on above:Order Comment: Specimen Type: BLOOD SPECIMENOrdering Facility: [facility] Address:[address] [place] [address] Performed By: #### 24563-3 ####[facility] [id number] [place] [address] [place] MCHC (RBC) [Mass/Vol]33.2 g/fYJqtcri29.5-36.0Summa Healthment on above:Order Comment: Specimen Type: BLOOD SPECIMENOrdering Facility: [facility] Address:[address] [place] [address] Performed By: #### 11798-2 ####[facility] [id number] [place] [address] [place] MCV (RBC) [Entitic vol]91.4 pKEzgvub15.0-100.0[facility] on above:Order Comment: Specimen Type: BLOOD SPECIMENOrdering Facility: [facility] Address:[address] [place] [address] Performed By: #### 60726-9 ####[facility] [id number] [place] [address] [place] Nucleated RBC (Bld) [#/Vol]10*3/uLNormal<0.01[facility] on above:Order Comment: Specimen Type: BLOOD SPECIMENOrdering Facility: [facility] Address:[address] [place] [address] Performed By: #### 82846-6 ####[facility] [id number] [place] [address] [place] Platelet mean volume (Bld) [Entitic vol]10.5 fLNormal9.0-12.7COhioHealth [facility] on above:Order Comment: Specimen Type: BLOOD SPECIMENOrdering Facility: [facility] Address:[address] [place], [place] [address]Performed By: #### 95958-1 ####[facility] [id number] [place] [address] [place] Platelets (Bld) [#/Vol]215 10*3/fZWrhdxz102-983OlwbchmvyOhio State East Hospital on above:Order Comment: Specimen Type: BLOOD SPECIMENOrdering Facility: [facility] Address:[address] [place] [address] Performed By: #### 16234-4 ####[facility] [id number] [place] [address] [place] RBC (Bld) [#/Vol]4.75 10*6/uLNormal3.90-5.20[facility] on above:Order Comment: Specimen Type: BLOOD SPECIMENOrdering Facility: [facility] Address:[address] [place], [place] [address]Performed By: #### 57747-2 ####[facility] [id number] [place] [address] [place] AMERICAWBC (Bld) [#/Vol]6.24 10*3/uLNormal3.70-11.00[facility] on above:Order Comment: Specimen Type: BLOOD SPECIMENOrdering Facility: [facility] Address:[address] [place], [place] [address]Performed By: #### 29605-9 ####[facility] [id number] [place] [address] [place] AMERICACNOVon 72-89-3953SWQJAkdylo [facility] City HospitalCNOVNormalCGreene Memorial HospitalCREATININE BLDon 28-99-1295Ybdhzbaoii [Mass/Vol]0.97 mg/dLHigh0.58-0.96[facility] Comment on above:Order Comment: Specimen Type: BLOOD SPECIMENOrdering Facility: [facility] Address:[address] [place] [address] Performed By: #### CRET1 ####[facility] [id number] [place] [address] [place] [facility] HOSPITALCreatinine and Glomerular filtration rate.predicted panel (S/P/Bld)61 mL/min/1.73m???Normal >=60[facility] on above:Order Comment: Specimen Type: BLOOD SPECIMENOrdering Facility: [facility] Address:[address] [place], [place] [address]Result Comment: Estimated Glomerular Filtration Rate (eGFR) is calculated using the 2020 CKD-EPI creatinine equation. This equation utilizes serum creatinine, sex, and age as parameters. The creatinine assay has traceable calibration to isotope dilution-mass spectrometry. Refer to KDIGO guidelines for clinical interpretation. In patients with unstable renal function, e.g. those with acute kidney injury, the eGFR may not accurately reflect actual GFR.Performed By: #### CRET1 ####[facility] [id number] [place] [address] [place] AMERICACTA CHEST (GATED) W IVCONon 13-46-3251FLY CHEST (GATED) W IVCONNormal [facility] HospitalComprehensive metabolic 2000 panelon 06-89-1597Apucsdu [Mass/Vol]4.4 g/dLNormal3.9-4.9CGreene Memorial HospitalCommarlette regional hospital on above:Order Comment: Specimen Type: BLOOD SPECIMENOrdering Facility: [facility] Address:[address] [place] [id number] By: #### 50136- 8, 24012-5 ####[facility] [id number] [place] [address] [address] [place] AMERICAALP [Catalytic activity/Vol]66 U/MUxrwct13-945GrytedhwqOhio State East Hospital on above:Order Comment: Specimen Type: BLOOD SPECIMENOrdering Facility: [facility] Address:[address] [place], [place] [address]Performed By: #### 12440- 8, 89050-3 ####[facility] [id number] [place] [address] [place] AMERICAALT [Catalytic activity/Vol]40 U/LHigh7-38[facility] on above:Order Comment: Specimen Type: BLOOD SPECIMENOrdering Facility: [facility] Address:[address] [place], [place] [address]Performed By: #### 70822- 8, 20999-4 ####[facility] [id number] [place] [address] [place] AMERICAAnion gap [Moles/Vol]9 mmol/LNormal9-18[facility] on above:Order Comment: Specimen Type: BLOOD SPECIMENOrdering Facility: [facility] Address:[address] [place], [place] [address]Performed By: #### 68203-1, 26671-7 ####[facility] [id number] [facility] [address] [place] AMERICAAST [Catalytic activity/Vol]31 U/TEperdw36-99OzmuirwxuOhio State East Hospital on above:Order Comment: Specimen Type: BLOOD SPECIMENOrdering Facility: [facility] Address:[address] [place], [place] [address]Performed By: #### 14129-9, 66822-4 ####[facility] [id number] [facility] [address] [place] AMERICABilirubin [Mass/Vol]0.8 mg/dLNormal0.2-1.3 [facility] HospitalCommarlette regional hospital on above:Order Comment: Specimen Type: BLOOD SPECIMENOrdering Facility: [facility] Address:[address] [place], [place] [address]Performed By: #### 47920-8, 56384-8 ####[facility] [id number] [place] [address] [place] AMERICACalcium [Mass/Vol]9.8 mg/dLNormal8.5-10.2COhioHealth [facility] on above:Order Comment: Specimen Type: BLOOD SPECIMENOrdering Facility: [facility] Address:[address] [place], [place] [address]Performed By: #### 65299-6, 12036-1 ####[facility] [id number] [place] [address] [place] AMERICAChloride [Moles/Vol]98 mmol/BJrcbcz39-597AapgktclwLima City Hospital Comment on above:Order Comment: Specimen Type: BLOOD SPECIMENOrdering Facility: [facility] Address:[address] [place] [address] Performed By: #### 64688-3, 64653-3 ####[facility] [id number] [place] [address] [place] CO2 [Moles/Vol]32 mmol/RBmdf37-70IzdfapkflOhio State East Hospital on above: Order Comment: Specimen Type: BLOOD SPECIMENOrdering Facility: [facility] Address:[address] [place], [place] [address]Performed By: #### 74968- 8, 10449-2 ####[facility]CL[facility] [id number] [place] [address] [place] AMERICACreatinine [Mass/Vol] 0.98 mg/dLHigh0.58-0.96[facility] ClevelandComment on above:Order Comment: Specimen Type: BLOOD SPECIMENOrdering Facility: [facility] Address:[address] [place] [id number] By: #### 02124-4, 55323-0 ####[facility] [id number] [place] [address] [place] AMERICACreatinine and Glomerular filtration rate.predicted panel (S/P/Bld)60 mL/min/1.73m???Normal>=60[facility] HospitalComment on above:Order Comment: Specimen Type: BLOOD SPECIMENOrdering Facility: [facility] Address:[address] [place], [place] [address]Result Comment: Estimated Glomerular Filtration Rate (eGFR) is calculated using the 2020 CKD-EPI creatinine equation. This equation utilizes serum creatinine, sex, and age as parameters. The creatinine assay has traceable calibration to isotope dilution-mass spectrometry. Refer to KDIGO guidelines for clinical interpretation. In patients with unstable renal function, e.g. those with acute kidney injury, the eGFR may not accurately reflect actual GFR.Performed By: #### 93756-2, 95852-8 ####[facility] [id number] [place] [address] [place] AMERICAGlucose [Mass/Vol]127 mg/wSNism23-94AegebdmgcLima City Hospital Comment on above:Order Comment: Specimen Type: BLOOD SPECIMENOrdering Facility: [facility] Address:[address] [place], [place] [address]Result Comment: The [place] Diabetes Association (ADA) provides guidance for cutoff values for fasting glucose and random glucose. The ADA defines fasting as no caloric intake for at least 8 hours. Fasting plasma glucose results between 100 to 125 mg/dL indicate increased risk for diabetes (prediabetes).Fasting plasma glucose results greater than or equal to 126 mg/dL meet the criteria for diagno sis of diabetes. In the absence of unequivocal hyperglycemia, results should be confirmed by repeattesting. In a patient with classic symptoms of hyperglycemia or hyperglycemic crisis, random plasmaglucose results greater than or equal to 200 mg/dL meet the criteria for diagnosis of diabetes.Reference: Standards of Medical Care in Diabetes 2016, [place] Diabetes Association. Diabetes Care. 2016.39(Suppl 1).Performed By: #### 39510-9, 77610-3 ####[facility] [id number] [place] [address] [place] AMERICAPotassium [Moles/Vol]4.1 mmol/LNormal3.7-5.1COhioHealth [facility] on above:Order Comment: Specimen Type: BLOOD SPECIMENOrdering Facility: [facility] Address:[address] [place], [place] [address]Performed By: #### 19185-1, 25308-4 ####[facility]CL[facility] [id number] [place] [address] [place] AMERICAProtein [Mass/Vol]6.8 g/dLNormal6.3-8.0[facility] on above:Order Comment: Specimen Type: BLOOD SPECIMENOrdering Facility: [facility] Address:[address] [place] [address] Performed By: #### 71963-8, 85898-6 ####[facility] LABCLIA [id number] [place] [address] [place] Sodium [Moles/Vol]139 mmol/ITiaenf140-346IbutitqggOhio State [facility] on above:Order Comment: Specimen Type: BLOOD SPECIMENOrdering Facility: [facility] Address:[address] [place], [place] [address]Performed By: #### 46615-9, 31393-5 ####[facility] [facility] LABCLIA [id number] [place] [address] [place] AMERICAUrea nitrogen [Mass/Vol]17 mg/dLNormal7-21[facility] on above:Order Comment: Specimen Type: BLOOD SPECIMENOrdering Facility: [facility] Address:[address] [place], [place] [address]Performed By: #### 33528- 8, 41847-8 ####[facility] LABCLIA [id number] [place] [address] [place] UJTIEJQVRL45yp 33-32-3739HAT79 NormalLima City HospitalNT-proBNP SerPl-mCncon 05-03-1528Awbrdoqsoao peptide.B prohormone N-Terminal [Mass/Vol]3265 pg/mLHigh<450[facility] City HospitalComment on above:Order Comment: Specimen Type: BLOOD SPECIMENOrdering Facility: [facility] Address:[place], [place] [address]Performed By: #### 57745-4, 32445-9 ####[facility] LABCLIA [id number] [place] [address] [place] OF AMERICARIGHT HEART CATH REPORTon 74-77-7446YWTOW HEART CATH REPORTNormal [facility] City HospitalUS CAROTID ARTERIES DAWSON VAS LABon 03-45-9503PC CAROTID ARTERIES DAWSON VAS LABNormalCGreene Memorial HospitalCNPNon 53-07-5340RERPJkdxdm [facility] HospitalCNPNon 52-53-4433VBIUPrkfmeArilubkfh [facility] Outside Cardiovascularon 21-20-2269Yjvdmeq Cardiovascular [id number]#1.00TIFFOur Lady of Mercy Hospital - AndersonProgress Note-Physicianon 04-24-3118Wsedfzob Note-Physician [id number]#1.00TIFFNoProMedica Memorial HospitalEchocardiogram-Transesophagealon 59-70-6784Gddzjtnciphwdj-Transesophageal [id number]#1.00TIFFNormProtestant HospitalCNPNon 90-56-1153MURBYfmurcPsjhqdyuf Clinic ClevelandDischarge Instructionson 10-32-3164Itxnmlxmw Instructions [id number]#1.00TIFFNoProMedica Memorial HospitalFormson [id number]#1.00TIFF [facility] AndersonConsent for Treatmenton 02-47-0001Ppzrafc for [id number]#1.00TIFFNormProtestant HospitalInpatient Clinical Summaryon 05-56-6638Amatpishr Clinical Summary [address] [address] Clinical Summary Person Information: Name: HARJIT ASENCIO I Age: 73 Years : 1950 Sex: Female PCP: Peggy Nazario MD Marital Status: Race: White Ethnicity: Non- or Language: Tongan Visit Id: Visit Reason: I51.9, I42.8 Speciality: Acuity: Enc Type: Ambulatory/Same Day Surgery Med Service: Surgery Arrival: 07/21/2023 06:33:24 Discharge: Dispo Type: Address: [address] [place] [address] [address] [facility] [id number] Provider Notes: Diagnosis: Problems Active Urethral stricture [...] Immunizations Documented This Visit Final Med List: amoxicillin-clavulanate (Augmentin 500 mg-125 mg Tab) 1 Tablets [...] Follow up: With: Address: When: Johan HENRIQUEZ [address] [place], [place] [address] [phone] Business (1) Comments: -After your appointment with CC Type Location Start [facility] Office [facility] [place] Shira 01/24/2024 2:30 PM 01/24/2024 2:45 PM Confirmed Patient Education Information: CV - Post-Transesophageal Echocardiogram (Custom)[facility] AndersonInpatient Patient Summaryon 58-40-3333Gujndasus Patient Summary [address] [address] Patient Discharge Instructions PERSON INFORMATION Name: HARJIT [...] Follow up: With: Address: When: Johan HENRIQUEZ [address] [place] [address] [place] [phone] [facility] (1) Comments: -After your appointment with CC In the event that this physician does not participate in your insurance network, please consult with your insurance company to find a nearby participating provider. Type Location Start [facility] Office Visit [facility] [place] Shira 01/24/2024 2:30 PM 01/24/2024 2:45 PM Confirmed Comment: ELIF Ruiz JOYCE I, have received the attached patient education materials/instructions and have verbalized understanding: Patient Signature Date Clinican/Nurse Signature Date HERE ARE THE MEDICATION CHANGES THAT OCCURRED DURING YOUR HOSPITAL STAY Medications to Continue with No Changes Other Medications amoxicillin-clavulanate (Augmentin 500 mg-125 mg Tab) 1 Tablets By Mouth every 24 hours for 14 Days. Refills: 0. Last Dose: Next Dose: apixaban (Eliquis 5 mg oral tablet) 1 Tablets By Mouth 2 times a day. Refills: 0. Last Dose: Next Dose: aspirin (aspirin 81 mg Oral EC Tab) 1 Tablets By Mouth every day. Refills: 0. Last Dose: Next Dose: atorvastatin (Lipitor 40 mg Tab) 1 Tablets By Mouth at bedtime. Refills: 0. Last Dose: Next Dose: carvedilol (carvedilol 3.125 mg Tab) 1 Tablets By Mouth 2 times a day. Refills: 0. Last Dose: Next Dose: digoxin (digoxin 125 mcg (0.125 mg) Tab) 1 Tablets By Mouth every day. Refills: 0. Last Dose: Next Dose: furosemide (furosemide 40 mg Tab) 1 Tablets By Mouth every day. Refills: 0. Last Dose: Next Dose: lorazepam (LORazepam 1 mg Tab) Last Dose: Next Dose: losartan (losartan 25 mg Tab) 1 Tablets By Mouth every day. Refills: 0. Last Dose: Next Dose: ondansetron (Zofran ODT 4 mg Tab-Dis) 1 Tablets By Mouth every 8 hours. Refills: 0. Last Dose: Next Dose: polyethylene glycol 3350 (polyethylene glycol 3350 17 gram packet) 17 Gram By Mouth every day. Refills: 0. Last Dose: Next Dose: Comment: MEDICATION LIST PROVIDED FOR YOU IS A LIST OF YOUR CURRENT MEDICATIONS. PLEASE CARRY THIS WITH YOU AT ALL TIMES. amoxicillin-clavulanate (Augmentin 500 mg-125 mg Tab) 1 Tablets [...] Mouth every day. Refills: 0. Pharmacy Information: [facility] Comment: PATIENT EDUCATION INFORMATION Instructions: [place] POST-TRANSESOPHAGEAL ECHOCARDIOGRAM AFTER THE PROCEDURE: Diet: ? May eat/drink and/or take normal daily medications after 10:45 Activity: ? You should have someone stay with you for the next (more content not included)...[facility] - AndersonPatient Education - Texton 32-19-1268Lxbkxce [place] POST-TRANSESOPHAGEAL ECHOCARDIOGRAM AFTER THE PROCEDURE: Diet: [...] Seek Medical Care if: ? Notify your english composition teacher should you have any difficulty swallowing or coughing up blood. ? In the event you are unable to reach your english composition teacher, please call Timothy Ng at [phone] and the mixer operator tablets will assist you.[facility] - AndersonReferrals Officeon 50-81-6365Cwprbodfj Office [id number]#1.00TIFRiverview Health InstituteConsent for Procedure/Surgeryon 90-32-3740Twqvkpu for Procedure/Surgery [id number]#1.00[facility] CenterConsent for Treatmenton 75-51-2854Dkebycl for Treatment [id number]#1.00[facility] CenterHeart and Vascular Office/Clinic Noteon 07-72-7428Nbcfv and Vascular Office/Clinic NoteHistory of Present Illness The patient is a [...] by left ventricular angiogram and confirmed by markedlyelevated V wave on Harshaw-Lois catheter wedge pressure tracing. 5. Normal left [...] the patient undergo a transesophageal echocardiogram to betterevaluate her mitral regurgitation and tricuspid vegetation for eventual mitral and tricuspid valve repair. The risk and benefits of the procedure were thoroughly explained the patient including specific attention to lack of onsite surgical backup, and informed written consent was obtained. The patient wishes to [facility] for mitral and tricuspid valve repair [...] urinary stream Renal le (more content not included)...[facility] - AndersonComment on above:Result Comment: Electronically Signed By: MARTINEZ MCMAHON, Johan Patino\.br\Date and Time Signed: 07/20/23 10:38 ESTPhysician Orderon 27-37-4133Dbuejxbqr Order [id number]#1.00TIFFNoProMedica Memorial HospitalAmbulatory Visit Summaryon 08-80-8807Doxwxdziqp Visit Summary HARJIT ASENCIO I :1950 Visit Date:07/19/2023 Ambulatory Visit Instructions Your Diagnosis Feeling of incomplete bladder emptying Atrophic vaginitis Urethral stricture Your Care Team Attending Physician - CECILIA MCMAHON, Micheline Morgan Primary Care Physician - Aravind MCMAHON, Peggy Mcmillan This Is Your Medications List amoxicillin-clavulanate (Augmentin 500 mg-125 mg Tab) Contact prescribing [...] Cy stoscopy, Dilation of urethra, Hysterectomy, Tonsillectomy. Discharge Vitals Heart Rate (Peripheral) 65 Respiratory Rate 16 Blood Pressure 97/63 Height 165 cm Height 65 in Weight 54.4 kg Weight 119.68 lb BMI 19.98 What to do next Scheduled Follow-Up Appointments 2022 10:30 AM EST With: Johan HENRIQUEZ MD Where: Cardiology Clinic Monday 2:30 PM EDT With: Micheline BROOKS MD Where: [facility] Educationon 55-39-3232Yjhzrwj EducationUrology Urodynamic Testing Urodynamic tests are done to [...] including vitamins, herbs, eye drops, creams, and frwj-skm-qydqkve medicines. ? Whether you are or may [...] with a material that shows up on X- rays (contrast material) so that X-ray pictures can [...] will my results be (more content not included)...[facility] AndersonUrology Office/Clinic Noteon 72-58-5702Uklxjsp Office/Clinic Note Chief Complaint f/u for urinary retention HPI Staff Pt was last seen on 04/26/23. Pt was seen at [facility] [place] 07/07[place]. Pt had Robles. placed at [...] of incomplete bladder emptying) Pt presented to [facility] 07/03/23 due to urinary retention. Robles [...] [facility] [address], [place] [address]- Additional Instructions: 6 mos Patient Education Urodynamic [...] Cy stoscopy, Dilation of urethra, Hysterectomy, Tonsillectomy. Medications aspirin 81 mg Oral EC Tab, 81 mg= 1 tab(s), Oral, Daily Augmentin 500 mg-125 mg Tab, 1 tab(s), Oral, q24hr carvedilol 3.125 mg Tab, 3.125 mg= 1 tab(s), Oral, BID digoxin 125 mcg (0.125 mg) Tab, 125 mcg= 1 tab(s), Oral, Daily Eliquis 5 mg oral tablet, 5 mg= 1 tab(s), Oral, BID (more content not included)...[facility] - AndersonComment on above: Result Comment: Electronically Signed By: Micheline BROOKS MD\.br\Date and Time Signed: 07/19/23 16:01 EST\.br\Electronically Co-Signed By: Felisa Bautista\.br\Date and Time Co-Signed: 07/19/23 15:59 ESTCoding Queryon [id number] Query From: Natalya Ansari To: Nahid SERRATO MD; Sent: 07/14/2023 12:05:07 EST ! Subject: Coding Query Dr Serrato, In your Progress notes you list- 4. Elevated troponin Secondary to type 2 non-ST segment elevation myocardial infarction from above and mild cad The ekg nor echo showed KS and the Cardiology consult didn't mention it and his recommendations were reviewed and agreed with. Was the KS type II ruled out or should that be coded? Thank you Fiona VERGARA Coding From: Nahid SERRATO MD To: Natalya Ansari; Sent: 07/17/2023 12:28:48 EST Subject: RE: Coding Query Caller Name: HARJIT ASENCIO I; Caller Number: H Type 2 acute NSTEMI due to demand ischemia from A-FIB with RVR. (POA)[facility] CenterED Note-Physicianon 60-44-7277PE Note-PhysicianBasic Information Time Seen: Jeff Cross DO 07/07/2023 09:00 Chief Complaint discharged yesterday from [facility], reports can't breathe w/exertion History of Present [...] also was found of A-fib RVR and underwenta stable cardiac catheterization and was started on [...] of 40. Case is discussed with her ca rdiologist. She just underwent ischemic evaluation including catheterization [...] Once, Stop date 07/07/23 10:00:00 EST, Routine, Startdate 07/07/23 10:00:00 EST, 07/07/23 9:02:00 EST metoprolol, 5 mg = 5 mL, Injection, IV Push, Once, Stop date 07/07/23 9:41:00 EST, STAT, Start date07/07/23 9:41:00 EST, 07/07/23 9:41:00 EST Automated Diff [...] HENRIQUEZ In 3 days 07/10/2023 EST [address] [place] [address]- [phone] Business (1) Additional Instructions: Peggy Bermudezby In 3 days 07/10/[address] [place] [address]- Business(1) Additional Instructions (more content not included)...[facility] - AndersonComment on above:Result Comment: Electronically Signed By: Noe Lopez\.br\Date and Time Signed: 07/07/2315:56 EST\.br\Electronically Co- Signed By: Jeff Cross DO\.br\Date and Time Co-Signed: 07/15/23 06:59 EST Cardiovascular Reporton 16-02-4153Fxeylhbohxgvpx Report [id number]#2.00TIFFOur Lady of Mercy Hospital - AndersonNursing Assessmenton 72-27-3517Cfodydu Assessment [id number]#1.00TIFRiverview Health InstituteDischarge Instructionson 10-28-2502Zctfnyxsz Instructions [id number]#1.00TIFFNoProMedica Memorial HospitalAuto Diffon 36-98-2880Sddkqvucx/100 WBC (Bld)0.6 %Normal0.0-2.0[facility] HospitalComment on above:Order Comment: Order Added by Discern Expert.Performed By: #### [id number], 75394365, 2604938, 1464415, 5947897, 6610368 #### Farshad [facility] [address] [place], [place] [address]Ktoxlahcm/Leukocytes Auto (Bld) [Pure # fraction]0.0 E9/LNormal 0.0-0.2Fisher [facility] Pr[facility] HospitalComment on above:Order Comment: Order Added by Discern Expert.Performed By: #### 8443904, 27262634, 9844577, 4541253, 2913978, 7186994 #### [facility] [address] [place] [address]Pflwoijytfc/100 WBC (Bld)1.5 %Normal0.0-8.0[facility]view HospitalComment on above:Order Comment: Order Added by Discern Expert.Performed By: #### 1329374, 02516325, 1731254, 4266345, 0316396, 8978978 #### [facility] [address] [place] [address]Jgivpybpgjt/Leukocytes Auto (Bld) [Pure # fraction]0.1 E9/L Normal0.0-0.5FKnox Community HospitalComment on above:Order Comment: Order Added by Valeria Expert.Performed By: #### 6563918, 65997157, 1636858, 9158694, 5425569, 7573888 #### [facility] [address] [place] [address] 35[address]Mvvaeabvjnh/100 WBC (Bld)15.3 %Nunqef45.0-50.0[facility] HospitalComment on above:Order Comment: Order Added by Valeria Expert. Performed By: #### 7362090, 79428752, 9429062, 1302030, 1576362, 1765530 #### [facility] [address] [place] [address]16[address]Nssyzgmhlbh/Leukocytes Auto (Bld) [Pure # fraction]1.2 E9/L Normal1.0-4.0[facility] HospitalComment on above:Order Comment: Order Added by Valeria Expert.Performed By: #### 3526013, 46202270, 8272501, 6604165, 4343505, 9219140 #### [facility] [address] [place] [address] 328[address]Zfpurvrqh/100 WBC (Bld)6.4 %Normal4.0-14.0[facility] HospitalComment on above:Order Comment: Order Added by Discern Expert.Performed By: #### 3079443, 59800121, 1673711, 0271415, 5302320, 0446434 #### [facility] [address] [place] [address] 9110[address]Wdtwkkecq/Leukocytes Auto (Bld) [Pure # fraction]0.5 E9/LNormal 0.2-1.0[facility] HospitalComment on above:Order Comment: Order Added by Discern Expert.Performed By: #### 6316657, 91437111, 1491740, 8955263, 8018615, 0678678 #### [facility] [address] [place] [address]65[address]Bneaswkeuot/100 WBC (Bld)76.2 %High36.0-75.0[facility] HospitalComment on above:Order Comment: Order Added by Discern Expert. Performed By: #### 4636862, 42753509, 1649224, 0125264, 0134154, 0462678 #### [facility] [address] [place] [address] 246[address]Nvyfjiwaycx/Leukocytes Auto (Bld) [Pure # fraction]6.1 E9/L Normal2.0-7.5FKnox Community HospitalComment on above:Order Comment: Order Added by Discern Expert.Performed By: #### 5077911, 47800114, 7994054, 7491836, 9476665, 5172771 #### [facility] [address] [place] [address] 459[address]ORRgr 59-21-2049Evmgubbvsa [Mass/Vol]0.8 mg/dLNormal0.5-1.3 [facility] HospitalComment on above:Performed By: #### 7662931, 99198531, 1030964, 4734576, 5077813, 3429898 #### [facility] [address] [place] [address]Wjoe nitrogen [Mass/Vol]13 mg/dLNormal5-21[facility] HospitalComment on above:Performed By: #### 0616052, 92422772, 3132963, 2414167, 7501459, 5846542 #### [facility] [address] [place] [place], [place] [address]Fxzy nitrogen/Creatinine [Mass ratio]16 No YhxupWfhhzo04-40 [facility] HospitalComment on above:Performed By: #### 1029197, 55153113, 3494489, 2946889, 6129133, 9034507 #### [facility] [address] [place], [place] [address]Bpdob gap [Moles/Vol]14 mmol/LNormal6-16[facility] HospitalComment on above:Performed By: #### 2761800, 39880914, 3870438, 2910055, 1873702, 1617861 #### [facility] [address] [place] [address] 40727Odushbc [Mass/Vol]8.7 mg/dLLow8.9-11.1FKnox Community HospitalComment on above:Performed By: #### 7253274, 46759012, 0061070, 5653391, 0132075, 6950174 #### [facility] [address] [place], [place] [address]Qubigesb [Moles/Vol]100 mmol/QQwy560-940TbierlCleveland Clinic Fairview HospitalComment on above:Performed By: #### 2624962, 76844051, 5365549, 3961153, 3444271, 6348335 #### [facility] [address] [place], [place] [address]YE5 [Moles/Vol]26 mmol/BPtcrcp18-48RhgvlxCleveland Clinic Fairview Hospital Comment on above:Performed By: #### 4540395, 06537161, 6452136, 0676204, 5200791, 6467018 #### [facility] [address] [place], [place] [address]Dodecgh [Mass/Vol]137 mg/eRFxjlbm28-925SfwvzkCleveland Clinic Fairview HospitalComment on above:Result Comment: If this glucose result represents a fasting glucose, interpretation should refer tothe following reference range: 55-99 mg/dLPerformed By: #### 6508890, 31166731, 2799080, 8908575, 2237773, 7819029 #### [facility] [address] [place] [address] 14[address]Dpvngcwmw [Moles/Vol]4.3 mmol/LNormal3.5-5.3FKnox Community HospitalComment on above:Performed By: #### 9528748, 68657998, 4329432, 6613543, 4398019, 7693168 #### [facility] [address] [place] [address] 197[address]Ruaibv [Moles/Vol]136 mmol/LIfdlnp681-090PmjbtiCleveland Clinic Fairview HospitalComment on above:Performed By: #### 5010914, 00196650, 2980873, 6343291, 6298885, 0736336 #### [facility] [address] [place] [address] 306[address]ANBey 87-76-9755Hgpdftejiqe peptide B (Bld) [Mass/Vol]756 pg/mL High5-80[facility] HospitalComment on above:Performed By: #### 2130013, 60360069, 3794549, 1755248, 3817947, 4892403 #### [facility] [address] [place] [address] 474[address]CUB w/ Auto Diffon 80-78-0810Fpvsewpdpwh distribution width (RBC) [Ratio]13.8 %Wxvmty43.9-14.2FKnox Community HospitalComment on above: Performed By: #### 1388014, 02755797, 4731777, 4643750, 0865148, 5891065 #### [facility] [address] [place] [address] 95[address]Wzczdxcjqg (Bld) [Volume fraction]40.3 %Gjyluu85.0-46.0[facility] HospitalComment on above:Performed By: #### 9691857, 43371159, 7248883, 1077501, 5200311, 7296685 #### [facility] [address] [place], [place] [address]Iintkjwnlx (Bld) [Mass/Vol]13.0 g/uFUzwuaf13.0-16.0[facility] HospitalComment on above:Performed By: #### 2461519, 65156378, 7222768, 6800520, 8397645, 9745928 #### [facility] [address] [place] [address] 73[address]EPD (RBC) [Entitic mass]29.2 yiPevcbi96.0-34.0[facility] HospitalComment on above:Performed By: #### 4762695, 68798098, 8676837, 3715989, 7707865, 3821315 #### [facility] [address] [place] [address] 22163SJIT (RBC) [Mass/Vol]32.3 g/dYZhqifi76.4-36.0[facility] HospitalComment on above:Performed By: #### 9641535, 28532414, 0061788, 5307887, 9397064, 6143067 #### [facility] [address] [place] [address] 933[address]SQC (RBC) [Entitic vol]90.2 cTRazxfa82.0-100.0[facility] HospitalComment on above:Performed By: #### 7967596, 60716743, 9207528, 7647478, 5166707, 3256104 #### [facility] [address] [place] [address]Iyikoshi mean volume (Bld) [Entitic vol]8.5 fLNormal6.4-10.8 [facility] HospitalComment on above:Performed By: #### 3246261, 05522504, 2672412, 1381667, 4263102, 2097147 #### [facility] [address] [place] [address] 5[address]Mrcyucyxz (Bld) [#/Vol]291.0 E9/NTtmgsd663.0-500.0[facility] HospitalComment on above:Performed By: #### 9107986, 12008144, 0109788, 5384504, 3000477, 3407121 #### Yen [facility] [address] [place] [place], [place] [address]UQE (Bld) [#/Vol]4.5 E12/LNormal4.3-5.9[facility] HospitalComment on above:Performed By: #### 0991808, 94529372, 1536032, 7951403, 9628822, 8832200 #### Yen [facility] [address] [place], [place] [address]KHX corrected for nucl RBC Auto (Bld) [#/Vol]8.0 E9/LNormal 4.0-11.0[facility] HospitalComment on above:Performed By: #### 6935587, 18657042, 1910071, 8580978, 3721231, 6214576 #### [facility] [address] [place] [place], [place] [address]BPQQQNQKHBzdjgjw By: SYSTEM SYSTEM on 80-28-4481Wyjgoubd I.cardiac [Mass/Vol]42.10 pg/mLInvalid Interpretation Code10.10 - 27.10 pg/mL FT RemisolComment on above:Result Comment: Critical Result verified by previous result\ Critical Result I_hsTnI:42.1 Called Eduardo WING at by DAMIEN CORREA and read back for confirmation at 07/07/2023 12:28:40Interpretive Data: The 95% CI (Confidence Interval) PPV (Positive Predictive Value) for myocardial infarction in females is 38 pg/mL, in males 51 pg/mL. The results should be used in conjunction withclinical conditions of myocardial infarction. (Access High Sensitivity Troponin I Instructions For Use, Marlys [place], March 2018)Anion gap [Moles/Vol]14 mmol/LNormal6 - 16 mEq/LFTMC RemisolCalcium [Mass/Vol]8.7 mg/dLLow8.9 - 11.1 mg/dLFTMC RemisolChloride [Moles/Vol]100 mmol/L Zeb666 - 111 mmol/LFTMC RemisolCO2 [Moles/Vol]26 mmol/SEbzmwx76 - 31 mmol/LFTMC RemisolCreatinine [Mass/Vol]0.8 mg/dLNormal0.5 - 1.3 mg/dLFT RemisolGFR/1.73 sq M.predicted among non-blacks MDRD (S/P/Bld) [Vol rate/Area]77 mL/min/1.73 m2 Normal>=59mL/min/1.73 m2FT Chem SComment on above:Interpretive Data: Chronic kidney disease could be indicated at eGFR's of less than 60 mL/min/1.73m2. Kidney failure is indicated at less than 15 mL/min/1.73m2.Glucose [Mass/Vol]137 mg/pUAoytsh79 - 199 mg/dLFT RemisolComment on above:Interpretive Data: If this glucose result represents a fasting glucose, interpretation should referto the following reference range: 55-99 mg/dLPotassium [Moles/Vol]4.3 mmol/LNormal3.5 - 5.3 mmol/LFTMC RemisolSodium [Moles/Vol]136 mmol/ZLldqsv251 - 145 mmol/LFTMC RemisolTroponin I.cardiac [Mass/Vol]39.60 pg/mLInvalid Interpretation Code10.10 - 27.10 pg/mLFT RemisolComment on above:Result Comment: Critical Result verified by repeat analysis\ Critical Result I_hsTnI:39.6 Called Jackie BAUMANN at by DAMIEN CORREA and read back for confirmation at 07/07/2023 10:30:10 Interpretive Data: The 95% CI (Confidence Interval) PPV (Positive Predictive Value) for myocardial infarction in females is 38 pg/mL, in males 51 pg/mL. The results should be used in conjunction withclinical conditions of myocardial infarction. (Access High Sensitivity Troponin I Instructions For Use, Marlys [place], March 2018)Urea nitrogen [Mass/Vol]13 mg/dLNormal5 - 21 mg/dLFT RemisolUrea nitrogen/Creatinine [Mass ratio]16 mg/rnHyczkm10 - 20FT RemisolCHEMISTRY Ordered By: Margaret Collier on 66-63-7797Loewkdmpuew peptide B (Bld) [Mass/Vol] 756 pg/mLHigh5 - 80 pg/mLCORNERST[facility] HemeManSSCOAGULATIONOrdered By: Fay Tran on 12-79-0373qLTM Coag (PPP) [Time]28.4 wYjdnyi32.1 - 36.5 second(s)[facility] Auto Coag Comment on above:Interpretive Data: Parameter 15 days - 4 weeks 1 - [...] the same coagulation reagent and instrumentation as [facility]. Currently there are no coagulation studies available worldwide for children to 14 days, andno normal ranges. Heparin therapeutic range (represented by Anti-Factor Xa activity of 0.2 - 0.4 U/mL) corresponds to PTT of 56.6 - 109.0 sec.INR Coag (PPP) [Relative time]1.0 {INR}Invalid Interpretation CodeCORNERSTONE [facility] Auto CoagComment on above:Interpretive Data: INR results are specifically intended to assess patients stabilized on long-term Anticoagulation therapy suggested INR s Less Intensive Anticoagulation 2.0 3.0 Conventional Range 3.0 4.5PT Coag (PPP) [Time]11.3 sNormal9.4 - 12.5 second(s) [facility] Auto CoagComment on above:Interpretive Data: 15 days - 4 weeks 1 - [...] the same coagulation reagent and instrumentation as [facility]. Currently there are no coagulation studies available worldwide for children to 14 days, andno normal ranges.Consent for Procedure/Surgeryon 49-38-3131Dghlpde for Procedure/[id number]#1.00TIFRiverview Health InstituteConsent for Treatmenton 99-18-4450Dazrfxh for Treatment [id number]#1.00[facility] CenterDischarge Instructionson 18-77-6256Anydueuho Instructions [id number]#1.00[facility] Clinical Summaryon 72-97-9027BH Clinical Summary [place] [id number] ED Clinical Summary Person Information Name: HARJIT ASENCIO I Patricia/[facility] Age: 73 Years : 1950 Sex: Female Language: Tongan PCP: Peggy Nazario MD Marital Status: Visit [...] 07/07/2023 13:04:13 07/07/2023 13:04:13 07/07/2023 13:04:13 ADDRESS: [address] [place] [address] [address] [facility] [phone] PHYS DOC NOTES: MEDICAL INFORMATION: Prescriptions Given: [...] Fibrillation Follow up: With: Address: When: Johan MARTINEZ [address] [place] [address] [phone] Business (1) In 3 days 07/10/2023 With: Address: When: Peggy Bermudezby [address] [place] [address] Business (1) In 3 days 07/10/2023 DIAGNOSIS: A-fib; AnxietyNormalFisher Hernandez Medical CenterED Note-Nursingon 45-86-2898NR Note-Nursingdiscussed in length medications pt needs to take yet today and need to picker / packer Rx 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NormalMilroy Hernandez Medical CenterED Patient Education Noteon 83-58-1696SW Patient Education NoteCardiovascular Atrial Fibrillation Atrial fibrillation is a type [...] as heart failure, coronary artery disease, heart valveproblems, or heart surgery. ? Diabetes. ? Overactive [...] signals of the heart. ? An ambulatory manager cardiac to record your heart's activity for a [...] weakness. ? Trouble breathing. (more content not included)...[facility] Patient Summaryon 56-30-9734BO Patient Summary [place] [id number] Patient Discharge Instructions Person Information Name: HARJIT ASENCIO I Age: 73 Years Arrival Date: 07/07/2023 08:56:07 Discharge Diagnosis: A-fib; Anxiety Primary Care Physician: Peggy Nazario MD Provider Information Primary Provider: Jeff Cross DO Advanced Visual Display Manager:Noe Black PA-C The exam and treatment you received in the Emergency Department were for an urgent problem and are not intended as complete care. It is important that you follow up with a doctor, nurse practitioner,or physician?s digital assistant for ongoing care. If your symptoms [...] Follow-up Instructions: With: Address: When: Johan HENRIQUEZ [address] [place], [place] [address] [place] [address] [phone] [employer] (1) In 3 days 07/10/2023 With: Address: When: Peggy Bermudezby [address] [place] [address] [employer] (1) In 3 days 07/10/2023 In the event that this physician does not participate in your insurance network, please consult with your insurance company to find a nearby participating provider. Patient Education Materials: Managing Anxiety, Adult; Atrial Fibrillation A MESSAGE TO ALL PATIENTS REGARDING OPIOIDS PRESCRIPTION OPIOIDS: WHAT YOU NEED TO KNOW Prescription opioids can be used to help relieve qqypeejx-iq-allmur pain and are often prescribed following a [...] and have fewer risks and side effects. Optionsmay include: ? Pain relievers such as acetaminophen, [...] unused prescription opioids: Find your community drug take- back program or [facility] mail-back program, or flush them down the toilet, following guidance from the Food and Drug Administration (www.fda.gov/Drugs/ResourcesForYou). ? Visit www.cdc.gov/drugoverdose to learn about the risks of opioids abuse and overdose. ? If you believe you may be struggling with addiction, tel (more content not included)...[facility] - AndersonHEMATOLOGYOrdered By: SYSTEM SYSTEM on 10-12-5525Ggsuunvqo/100 WBC (Bld)0.6 %Normal0.0 - 2.0 %[facility] HemeAutoSS Basophils/Leukocytes Auto (Bld) [Pure # fraction]0.0 E9/LNormal0.0 - 0.2 E9/L [facility] HemeAutoSSEosinophils/100 WBC (Bld)1.5 %Normal0.0 - 8.0 %[facility] HemeAutoSS Eosinophils/Leukocytes Auto (Bld) [Pure # fraction]0.1 E9/LNormal0.0 - 0.5 E9/L [facility] HemeAutoSSLymphocytes/100 WBC (Bld)15.3 %Rzmixa65.0 - 50.0 %[facility] HemeAutoSS Lymphocytes/Leukocytes Auto (Bld) [Pure # fraction]1.2 E9/LNormal1.0 - 4.0 E9/L [facility] HemeAutoSSMonocytes/100 WBC (Bld)6.4 %Normal4.0 - 14.0 %[facility] HemeAutoSS Monocytes/Leukocytes Auto (Bld) [Pure # fraction]0.5 E9/LNormal0.2 - 1.0 E9/L [facility] HemeAutoSSNeutrophils/100 WBC (Bld)76.2 %High36.0 - 75.0 %[facility] HemeAutoSS Neutrophils/Leukocytes Auto (Bld) [Pure # fraction]6.1 E9/LNormal2.0 - 7.5 E9/L FT HemeAutoSSHEMATOLOGYOrdered By: Sharifa Castillo on 28-08-2872Lvxezxlalqb distribution width (RBC) [Ratio]13.8 %Ycamve02.9 - 14.2 %[facility] HemeAutoSS Hematocrit (Bld) [Volume fraction]40.3 %Rxlglq21.0 - 46.0 %[facility] HemeAutoSS Hemoglobin (Bld) [Mass/Vol]13.0 g/xCYtmzuu52.0 - 16.0 gm/dLFTMC HemeAutoSSMCH (RBC) [Entitic mass]29.2 iyQslnhh75.0 - 34.0 pgFTMC HemeAutoSSMCHC (RBC) [Mass/Vol]32.3 g/sSIrbdhc25.4 - 36.0 gm/dLFTMC HemeAutoSSMCV (RBC) [Entitic vol] 90.2 bERbaggn40.0 - 100.0 fLFTMC HemeAutoSSPlatelet mean volume (Bld) [Entitic vol]8.5 fLNormal6.4 - 10.8 fLFTMC HemeAutoSSPlatelets (Bld) [#/Vol]291.0 E9/L Zcqwkh533.0 - 500.0 E9/LFT[facility] HemeAutoSSRBC (Bld) [#/Vol]4.5 E12/LNormal4.3 - 5.9 E12/LFT[facility] HemeAutoSSWBC corrected for nucl RBC Auto (Bld) [#/Vol]8.0 E9/LNormal 4.0 - 11.0 E9/LFTMC HemeAutoSSInsurance Correspondence Officeon 07-07-2023 Insurance Correspondence [id number]#1.00TIFF [facility] Recordon 39-32-6302Mzkveyx Record [id number]#1.00TIFFNormalWyandot Memorial Hospitalitor [id number]#1.00TIFFNormal Farshad [facility] Orthopaedic Instituteitor Record [id number]#1.00TIFFNoProMedica Memorial HospitalPT & PTTon 50-44-1530kFAE Coag (PPP) [Time]28.4 second(s)Aylcqc31.1-36.5 [facility] HospitalComment on above:Result Comment: Parameter 15 days - 4 weeks 1 - [...] the same coagulation reagent and instrumentation as [facility]. Currently there are no coagulation studies available worldwide for children to 14 days, andno normal ranges. Heparin therapeutic range (represented by Anti-Factor Xa activity of 0.2 - 0.4 U/mL) corresponds to PTT of 56.6 - 109.0 sec.Performed By: #### [id number], 17038192, 4093346, 8013380, 3978071, 9452779 #### [facility] [address] [place], [place] [address]TOI Coag (PPP) [Relative time]1.0 {INR}Invalid Interpretation [facility] CenterComment on above:Result Comment: INR results are specifically intended to assess patients stabilized on long-term Anticoagulation therapy suggested INR?s ?Less Intensive Anticoagulation? 2.0 ? 3.0 Conventional Range 3.0 ? 4.5Performed By: #### [id number], [id number], 7666854, 9584940, 9999901, 0358468 #### Yen [facility] [address] [place], [place] [address]LS Coag (PPP) [Time]11.3 second(s)Normal9.4-12.5Fisher [facility]no[facility] Pratt HospitalComment on above:Result Comment: 15 days - 4 weeks 1 - [...] the same coagulation reagent and instrumentation as [facility]. Currently there are no coagulation studies available worldwide for children to 14 days, andno normal ranges.Performed By: #### [id number], 38119441, 5619383, 6985202, 1074461, 1950574 #### Yen [facility] [address] [place], [place] [address]Alhjmfjl 0 Hr.on 89-25-0457Tqbcodfx I.cardiac [Mass/Vol]39.60 pg/cJQdldniun08.10-27.10Fisher [facility] Pratt HospitalComment on above:Result Comment: Critical Result verified by repeat analysis\ Critical Result I_hsTnI:39.6 Called Jackie BAUMANN at ER by DAMIEN CORREA and read back for confirmation at 07/07/2023 10:30:10 The 95% CI (Confidence Interval) PPV (Positive Predictive Value) for myocardial infarction in females is 38 pg/mL, in males 51 pg/mL. The results should be used in conjunction with clinical conditions of myocardial infarction. (Access High Sensitivity Troponin I Instructions For Use, Marlys [place], March 2018)Performed By: #### 2451565, 92401217, 3675047, 6165079, 9674677, 4639714 #### Farshad [facility] [address] [place], [place] [address]Frqmxton 3 Hr.on 02-48-4417Kcqjdcqq I.cardiac [Mass/Vol]42.10 pg/eKEcwwjzbp72.10-27.10[facility] HospitalComment on above:Result Comment: Critical Result verified by previous result\ Critical Result I_hsTnI:42.1 Called Eduardo WING at ER by DAMIEN CORREA and read back for confirmation at 07/07/2023 12:28:40 The 95% CI (Confidence Interval) PPV (Positive Predictive Value) for myocardial infarction in females is 38 pg/mL, in males 51 pg/mL. The results should be used in conjunction with clinical conditions of myocardial infarction. (Access High Sensitivity Troponin I Instructions For Use, Marlys [place], March 2018)Performed By: #### [id number] ####Farshad [facility] [address] [place], [place] [address]RL Chest Single Viewon 87-90-4042KI Chest Single ViewExam Date/Time: 07/07/2023 09:25 EST Reason for Exam: [...] Ka,r in mGy = na DAP = naNormalCleveland Clinic Fairview HospitaleGFRon 32-59-3185QIM/1.73 sq M.predicted among non-blacks MDRD (S/P/Bld) [Vol rate/Area]77 mL/min/1.73 m2 Normal>=59[facility] HospitalComment on above:Order Comment: Order added by Discern Expert.Result Comment: Chronic kidney disease could be indicated at eGFR's of less than 60 mL/min/1.73m2. Kidney failure is indicated at less than 15 mL/min/1.73m2.Performed By: #### 2131080, 38190577, 6963698, 1631187, 8171469, 9349312 #### [facility] [address] [place], [place] [address]QMFcf 93-97-8285Bhkny gap [Moles/Vol]5 mmol/LLow6-16[facility] HospitalComment on above:Performed By: #### 8095651, 66598892, 5701593, 5165464, 3321281, 4733361 #### [facility] [address] [place], [place] [address]Vmtdadu [Mass/Vol]8.0 mg/dLLow8.9-11.1Fisher [facility] Pr[facility] HospitalComment on above:Performed By: #### 7904308, 44830013, 6651737, 4861066, 6486104, 5237958 #### [facility] [address] [place], [place] [address]Dyivhzzu [Moles/Vol]109 mmol/TDbguyh358-938OtfvyvCleveland Clinic Fairview HospitalComment on above:Performed By: #### 2597905, 46522258, 8599924, 2073782, 8183888, 1511336 #### [facility] [address] [place], [place] [address]EM1 [Moles/Vol]28 mmol/VWqtcmb81-98SsrjisCleveland Clinic [facility]view Hospital Comment on above:Performed By: #### 3914475, 12159513, 4713155, 7774705, 8550980, 2094951 #### [facility] [address] [place], [place] [address]Amlrncrlxa [Mass/Vol]0.7 mg/dLNormal0.5-1.3FKnox Community HospitalComment on above:Performed By: #### 4003371, 08911923, 9813791, 3501252, 8768022, 9990402 #### [facility] [address] [place], [place] [address]Uaxdvtc [Mass/Vol]91 mg/gCTdzdua72-465BfbndbCleveland Clinic Fairview HospitalComment on above:Result Comment: If this glucose result represents a fasting glucose, interpretation should refer tothe following reference range: 55-99 mg/dLPerformed By: #### 3393883, 58286135, 4629313, 3776390, 7702613, 6121040 #### [facility] [address] [place] [address]Ielfjupwc [Moles/Vol]3.9 mmol/LNormal3.5-5.3FKnox Community HospitalComment on above:Performed By: #### 1325501, 20616035, 0700387, 3027645, 2359795, 4728553 #### [facility] [address] [place] [address]Ubwqeq [Moles/Vol]138 mmol/EZunnpp989-718XafmguCleveland Clinic Fairview HospitalComment on above:Performed By: #### 4105147, 67163639, 1891346, 0262407, 8912039, 2734237 #### [facility] [address] [place], [place] [address]Rmrw nitrogen [Mass/Vol]12 mg/dLNormal5-21[facility] HospitalComment on above:Performed By: #### 0297926, 89093913, 5788692, 8449297, 3071537, 7612532 #### [facility] [address] [place], [place] [address]Bjun nitrogen/Creatinine [Mass ratio]17 No HhmceQoslui90-59 [facility] HospitalComment on above:Performed By: #### 1357665, 75848433, 0093882, 8121044, 8167628, 0654115 #### Yen [facility] [address] [place] [address]SVFFLXUGPEnkztpg By: SYSTEM SYSTEM on 62-17-6029Exult gap [Moles/Vol]5 mmol/LLow6 - 16 mEq/LFT[facility] RemisolCalcium [Mass/Vol]8.0 mg/dLLow8.9 - 11.1 mg/dLFT RemisolChloride [Moles/Vol]109 mmol/XLzrrgw581 - 111 mmol/LFT[facility] RemisolCO2 [Moles/Vol]28 mmol/VUbbjne48 - 31 mmol/LFT[facility] RemisolCreatinine [Mass/Vol]0.7 mg/dLNormal0.5 - 1.3 mg/dLFTMC RemisolGFR/1.73 sq M.predicted among non-blacks MDRD (S/P/Bld) [Vol rate/Area]90 mL/min/1.73 p0Hmmejv >=59mL/min/1.73 m2FT Chem SComment on above:Interpretive Data: Chronic kidney disease could be indicated at eGFR's of less than 60 mL/min/1.73m2. Kidney failure is indicated at less than 15 mL/min/1.73m2.Glucose [Mass/Vol]91 mg/dL Welpop73 - 199 mg/dLFT RemisolComment on above:Interpretive Data: If this glucose result represents a fasting glucose, interpretation should referto the following reference range: 55-99 mg/dLPotassium [Moles/Vol]3.9 mmol/LNormal3.5 - 5.3 mmol/LFTMC RemisolSodium [Moles/Vol]138 mmol/SKpzdrg396 - 145 mmol/LFTMC RemisolUrea nitrogen [Mass/Vol]12 mg/dLNormal5 - 21 mg/dLFT RemisolUrea nitrogen/Creatinine [Mass ratio]17 mg/kzSuayuh62 - 20FT RemisolDischarge Note-Nursingon 70-21-6804Ceqsrmsmz Note-Nursing HARJIT ASENCIO I :1950 Visit Date:07/02/2023 Inpatient Discharge Instructions Your Care Team Admitting Physician - Noman PATTON DO Consulting Physician - DYLAN MCMAHON, Cody Goff MD, Eb Yeh [facility] Cardio, XXXX Reason for Your Visit I [...] Cy stoscopy, Dilation of urethra, Hysterectomy, Tonsillectomy. Discharge Vitals Temperature (Oral) 36.7 ?C Heart Rate (Monitored) 78 Blood Pressure 105/69 Weight 59.7 kg What to do next Instructions From Your Doctor Event Name Event Result Discharge Activity Ambulate as tolerated, Activity as tolerated Discharge Diet(s) Fat Modified- Low cholesterol, Low Sodium- 2000 mg, Other: 1800 mils per day fluid restriction Pharmacy Information [facility] Previously Scheduled Follow-Up Appointments Monday 1:00 PM EDT With: CECILIA MCMAHON, Micheline Morgan [facility] Summary[facility] 19-59-1952Xzmkpsyqe Clinical Summary [address] [address] Clinical Summary Person Information: Name: HARJIT ASENCIO I Age: 73 Years : 1950 Sex: Female PCP: Peggy Nazario MD Marital Status: Race: White Ethnicity: Non- or Language: Tongan Visit Id: Visit Reason: Genitourinary problem; 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 Speciality: Acuity: Enc Type: Observation Med Service: Medical Arrival: 07/02/2023 21:17:31 Discharge: Dispo Type: Admitted as IP to this [facility] Address: [address] [place] [address] [address] [facility] [id number] Provider Notes: Diagnosis: 1:Atrial fibrillation with RVR; 2:Acute systolic congestive heart failure; 3:Severe mitral regurgitation; 4:Elevated troponin; 5:Mild coronary artery disease; 6:anxiety; 7:Pleural effusion; 8:Urinaryhesitancy; 9:Other urethral stricture, female; 11:Constipation; 12:On deep [...] MCMAHON, Eb Yeh; DYLAN MCMAHON, Cody Dumont; [facility] Cardio, XXXX Referring Physician: Follow up: With: Address: When: Johan HENRIQUEZ [address] [place] [phone] Business (1) Within 2 weeks Comments: Call for followup appointment With: Address: When: Peggy Nazario [address] [place] [address] Business (1) 07/10/2023 1:00 PM With: Address: When: Micheline BROOKS [facility], [address], [place] [address] Business (1) Comments: Call for followup appointment re: the indwelling Robles catheter. Type Location Start Finish [facility] Office Visit [facility] WILL Silva 11/22/2023 1:00 PM 11/22/2023 1:15 PM Confirmed Patient Education Information: CV - Cardiovascular Discharge Instructions (Custom)[facility]In[facility] Patient Summaryon 94-57-1824Xmmsymuaz Patient Summary [address] [address] Patient Discharge Instructions PERSON INFORMATION Name: HARJIT ASENCIO I Date of : 1950 Current Date: 07/06/2023 14:19:57 PHYSICIANS Admitting Physician: Noman PATTON DO Primary Care Physician: Aravind MCMAHON, Peggy Mcmillan PCP Comment: Discharge Diagnosis: 1:Atrial fibrillation with [...] up: With: Address: When: Johan HENRIQUEZ [address] [place] [phone] Business (1) Within 2 weeks Comments: Call for followup appointment With: Address: When: Peggy Nazario [address] [place] [address] Business (1) 07/10/2023 1:00 PM With: Address: When: Micheline BROOKS [facility], [address], [place] [address] Business (1) Comments: Call for followup appointment re: the indwelling Robles catheter. In the event that this physician does not participate in your insurance network, please consult with your insurance company to find a nearby participating provider. Type Location Start Finish [place] [facility] Office Visit [facility] WILL Silva 11/22/2023 1:00 PM 11/22/2023 1:15 PM Confirmed Comment: ELIF Ruiz JOYCE I, have received the attached patient education materials/instructions and have verbalized understanding: Patient Signature Date Clinican/Nurse Signature Date HERE ARE THE MEDICATION CHANGES THAT OCCURRED DURING YOUR HOSPITAL STAY New Medications [id number], [address] [place], [place] [id number], [phone] apixaban (Eliquis 5 mg oral tablet) 1 Tablets By Mouth 2 times a day. Refills: 0. Last Dose: Next Dose: aspirin (aspirin 81 mg Oral EC Tab) 1 Tablets By Mouth every day. Refills: 0. Last Dose: Next Dose: atorvastatin (Lipitor 40 mg Tab) 1 Tablets By Mouth at bedtime. Refills: 0. Last Dose: Next Dose: carvedilol (carvedilol 3.125 mg Tab) 1 Tablets By Mouth 2 times a day. Refills: 0. Last Dose: Next Dose: digoxin (digoxin 125 mcg (0.125 mg) Tab) 1 Tablets By Mouth every day. Refills: 0. Last Dose: Next Dose: furosemide (furosemide 40 mg Tab) 1 Tablets By Mouth every day. Refills: 0. Last Dose: Next Dose: losartan (losartan 25 mg Tab) 1 Tablets By Mouth every day. Refills: 0. Last Dose: Next Dose: polyethylene glycol 3350 (polyethylene glycol 3350 17 gram packet) 17 Gram By Mouth every day. Refills: 0. Last Dose: Next Dose: Medications to Continue with No Changes Other Medications estradiol topical (Estrace 0.1 mg/g Cream) 0.5 Gram Vaginal Monday & Monday. Refills: 6. Last Dose: Next Dose: lorazepam (Ativan 0.5 mg Tab) 1 Tablets By Mouth 3 times a day as needed as needed for anxiety. Last Dose: Next Dose: ondansetron (Zofran ODT 4 mg Tab-Dis) 1 Tablets By Mouth every 8 hours. Refills: 0. Last Dose: Next Dose: No Longer Take the Following Medications ciprofloxacin [...] times a day. Refills (more content not included)...[facility] AndersonInterdisciplinary Note - Case Manageron 74-54-7066Nbyajkwfpiwkakakm Note - Case ManagerPt is awake and alert in bed, previously rounded with Dr. Serrato. Await cardiology to see and anticipate DC home later today. Declines any concerrns or DC needs. Brilinta was priced out yesterday $183 and coupon provided. . PCP verified and insurance information reviewed and DME discussed. Contact information provided and white board updated.[facility] AndersonComment on above:Result Comment: Electronically Signed By: Martín ALFORD, Radha\.br\Date and Time Signed: 07/06/23 12:06 ESTMonitor Recordon 57-51-9788Brezduz Record [id number]#1.00TIFFNoProMedica Memorial HospitalMonitor [id number]#1.00TIFFNoMansfield Hospitalitor Record [id number]#1.00[facility] CenterProgress Note-Physicianon 14-66-7043Mcedohmi Note-PhysicianAssessment/Plan 73-year-old female with history of ureteral stricture with previous dilations, anxiety disorder presented with complaints of urinary hesitancy, constipation, cough and shortness of breath and was admitted to [facility] with acute paroxysmal atrial fibrillation with [...] IV Cardizem drip. Continue on Coreg, digoxin. Deputy Clerk debating on starting patient on amiodarone. Eliquis to start in 4 days after cardiac catheterization. Ordered: [facility] Care/Day Moderate 35 Minutes 07800 2. Acute systolic congestive heart failure (I50.21: Acute systolic (congestive) heart failure) Acute systolic congestive heart failure?present on admission. Seen by english composition teacher and underwent cardiac catheterization that showed mild coronary artery disease. Also shows severe mitral regurgitation and tricuspid regurgitation with ejection fraction of 30 to35%. Continue on aspirin, Coreg, losartan and Lasix. Ordered: [facility] Care/Day Moderate 35 Minutes 76446 3. Severe mitral regurgitation (I34.0: Nonrheumatic mitral (valve) insufficiency) As seen on cardiac catheterization. Patient will follow-up with english composition teacher for HAROON and then valvular repair. Deputy Clerk also considering transferring patient to or [facility]. Ordered: [facility] Care/Day Moderate 35 Minutes 54639 4. Elevated troponin (R79.89: Other specified abnormal findings of blood chemistry) Secondary to type II non-ST segment elevation myocardial infarction from above and mild coronary artery disease.. Seen by english composition teacher and underwent cardiac catheterization that showed mild coronary artery disease. Continue on aspirin, Lipitor, and Coreg. Ordered: [facility] Care/Day Moderate 35 Minutes 13071 5. Mild coronary artery disease (I25.10: Atherosclerotic heart disease of [place] coronary artery without angina pectoris) As seen on cardiac catheterization on 07/05/2023. Continue on Lipitor and aspirin. Ordered: [facility] Care/Day Moderate 35 Minutes 61828 6. anxiety (F41.9: Anxiety disorder, unspecified) Increase [...] deep vein thrombosis (DVT) prophylaxis (Z79.899: Other usp (current) drug therapy) SCDs. Eliquis to resume in 4 days. Disposition: Home soon today if heart rate is under good control with plans to follow-up with english composition teacher and urologist as outpatient. However if heart rate is still elevated then we will call [facility] or [facility] to see if we can transfer patient for valve repair/replacement. I discussed the diagnosis and plan of care with the patient at the bedside. Moderate level of MDM based on addressing above issues. This documentation was transcribed using voice recognition software. Several attempts were made to ensure accuracy. However inadvertent computerized post tensioning ironworker helper errors may be present. Nahid Serrato. Hospitalist. Orders: bisacodyl, 10 mg = 2 tab(s), Tab-EC, Oral, Once, Stop date 07/05/23 14:00:00 EST, Routine, Start date 07/05/23 14:00:00 EST, 07/05/23 13:52:00 EST lactulose, 20 gram = 30 mL, Syrup, Oral, Once, Stop date 07/05/23 14:00:00 EST, Routine, Start date07/05/23 14:00:00 EST, 07/05/23 13:52:00 EST lorazepam, 0.5 mg = 1 tab(s), Tab, Oral, QID PRN Anxiety, Routine, Start date 07/06/23 11:43:00 EST, 07/06/23 11:43:00 EST potassium chloride, 20 mEq = 1 tab(s), Tab-ER, Oral, Once, Stop date 07/06/23 10:00:00 EST, Routine, Start date 07/06/23 10:00:00 EST, 07/06/23 10:00:00 EST Basic Metabolic Panel Basic Metabolic Panel eGF (more content not included)...[facility] - AndersonComment on above:Result Comment: Electronically Signed By: JAZMÍN MCMAHON, Nahid\.br\Date and Time Signed: 07/06/23 11:56 ESTProgress Note-PhysicianSubjective Patient very weepy this morning, very anxious about her cardiac condition and going home to cook for herself. She claims that she will become so anxious that she is paralyzed from being able to take care of herself or cook. She does not drive and is unsure how she is going to get to the [facility] or [facility] for mitral valve/tricuspid valve surgery. Despite all this the patientdid well overnight. Telemetry showed atrial fibrillation with [...] handle it. Another option would be to addamiodarone therapy. She will continue her low-dose Cozaar, Coreg, and low-dose Lasix 40 mg a day. 2. Acute systolic congestive heart failure (I50.21: Acute systolic (congestive) heart failure) Patient underwent left and right heart catheterization yesterday which demonstrated moderate to severe LV dysfunction, severe mitral regurgitation, mild pulmonary hypertension. The patient will require an outpatient transesophageal echocardiogram once her medical condition has stabilized to furtherevaluate her mitral regurgitation and tricuspid agitation. I [...] to transfer the patient directly to the [facility] or [facility] given her logistic challenges with gettinga ride to and from those facilities so [...] artery disease (I25.10: Atherosclerotic heart disease of chipewwa coronary artery without angina pectoris) 6. Pleural effusion (J90: Pleural effusion, not elsewhere classified) 7. Urinary hesitancy (R39.11: Hesitancy of micturition) 8. Other urethral stricture, female (N35.82: Oth (more content not included)... [facility] AndersonComment on above:Result Comment: Electronically Signed By: MARTINEZ MCMAHON, Johan Ribeiro.zak\Date and Time Signed: 07/06/23 09:22 ESTeGFR on 82-64-2970XDI/1.73 sq M.predicted among non-blacks MDRD (S/P/Bld) [Vol rate/Area]90 mL/min/1.73 b2Vbivds>=59[facility] HospitalComment on above:Order Comment: Order Added by Discern Expert.Result Comment: Chronic kidney disease could be indicated at eGFR's of less than 60 mL/min/1.73m2. K idney failure is indicated at less than 15 mL/min/1.73m2.Performed By: #### [id number], [id number], [id number], [id number], [id number], [id number] #### [facility] [address] [place] [address] [place], [place] [address]LJJqs 53-96-3465Cpiat gap [Moles/Vol]9 mmol/LNormal6-16[facility] HospitalComment on above:Performed By: #### [id number], [id number] ####[address] [place] [address] Calcium [Mass/Vol]8.2 mg/dLLow8.9-11.1FKnox Community HospitalComment on above:Performed By: #### [id number], [id number] ####[address] [place], [place] [address]Zdqtarpx [Moles/Vol]105 mmol/LNormal 101-111[facility] HospitalComment on above:Performed By: #### [id number], [id number] ####[address] [address]GK8 [Moles/Vol]27 mmol/LCgoaqg40-58YxqoupCleveland Clinic Fairview HospitalComment on above:Performed By: #### [id number], [id number] ####[address] [address]Dvllphjogc [Mass/Vol]0.7 mg/dLNormal 0.5-1.3FKnox Community HospitalComment on above:Performed By: #### [id number], [id number] ####[address] [place], [place] [address]Kpooyxq [Mass/Vol]115 mg/fWHghmgi34-262HceuflCleveland Clinic Fairview HospitalComment on above:Result Comment: If this glucose result represents a fasting glucose, interpretation should refer tothe following reference range: 55-99 mg/dL Performed By: #### [id number], [id number] ####[facility] [address] [place] [address]Uiljncjeo [Moles/Vol]4.3 mmol/LNormal 3.5-5.3FKnox Community HospitalComment on above:Performed By: #### [id number], [id number] ####[facility] [address] [place], [place] [address]Ngkqgg [Moles/Vol]137 mmol/ASmevbs283-233PdaiayCleveland Clinic Fairview HospitalComment on above:Performed By: #### [id number], [id number] ####[facility] [address] [place], [place] [address]Kphg nitrogen [Mass/Vol]13 mg/dL Normal5-21[facility] HospitalComment on above:Performed By: #### [id number], [id number] ####[facility] [address] [place], [place] [address]Sbar nitrogen/Creatinine [Mass ratio]19 No ZdgepLvlzbl14-48 [facility] HospitalComment on above:Performed By: #### [id number], [id number] ####[facility] [address] [place] [address] CHEMISTRYOrdered By: SYSTEM SYSTEM on 92-42-5748Hknwu gap [Moles/Vol]9 mmol/L Normal6 - 16 mEq/LFTMC RemisolCalcium [Mass/Vol]8.2 mg/dLLow8.9 - 11.1 mg/dLCORNERSTONE [facility] RemisolChloride [Moles/Vol]105 mmol/SOlvead703 - 111 mmol/LFTMC RemisolCO2 [Moles/Vol]27 mmol/KWkoant93 - 31 mmol/LFTMC RemisolCreatinine [Mass/Vol]0.7 mg/dLNormal0.5 - 1.3 mg/dLCORNERSTONE SPECIALTY [facility] RemisolGFR/1.73 sq M.predicted among non-blacks MDRD (S/P/Bld) [Vol rate/Area]90 mL/min/1.73 i3Bjsovq>=59mL/min/1.73 m2[facility] Chem SComment on above:Interpretive Data: Chronic kidney disease could be indicated at eGFR's of less than 60 mL/min/1.73m2. Kidney failure is indicated at less than 15 mL/min/1.73m2.Glucose [Mass/Vol]115 mg/wSFukkxi58 - 199 mg/dLCORNERSTONE SPECIALTY [facility] RemisolComment on above:Interpretive Data: If this glucose result represents a fasting glucose, interpretation should referto the following reference range: 55-99 mg/dLPotassium [Moles/Vol]4.3 mmol/LNormal3.5 - 5.3 mmol/LFTMC Remisol Sodium [Moles/Vol]137 mmol/GSxaksa919 - 145 mmol/LFTMC RemisolUrea nitrogen [Mass/Vol]13 mg/dLNormal5 - 21 mg/dLCORNERSTONE SPECIAL[facility] RemisolUrea nitrogen/Creatinine [Mass ratio]19 mg/kwHanwcn91 - 20[facility] RemisolCHEMISTRYOrdered By: Lab ROPUser on 44-24-1725Ywbirqe [Mass/Vol]79 mg/oTFcqyts60 - 99 mg/dLCORNERSTONE SPECIALTY [facility] POC Subsection Comment on above:Result Comment: Notified RN/ANDREINAOC UsernamVega Shetty Interpretation CodeCORNERSTONE SPECIALTY HOS[facility] POC SubsectionSodium [Moles/Vol]556467323827 mmol/L Invalid Interpretation CodeCORNERSTONE SPECIALTY [facility] POC SubsectionSodium [Moles/Vol]423469830 mmol/L Invalid Interpretation [facility] POC SubsectionCapillary Glucose POCon 07-05-2023 Glucose [Mass/Vol]79 mg/dCXcugmb05-33RvzzjiCleveland Clinic Fairview HospitalComment on above:Result Comment: Notified RN/ANDREINAerformed By: #### [id number] #### [facility]arshad [facility] [address] [place], [place] [address]Kuueoleyoqzhet Reporton 53-58-2169Cyjfxyxwoplgsy Report [id number]#1.00TIFMerleProMedica Memorial HospitalMonitor Recordon 25-58-7162Uzsesnr Record [id number]#1.00TIFMerleProMedica Memorial HospitalMonitor [id number]#1.00TIFAspirus Wausau Hospital [facility] Instituteitor Record [id number]#1.00[place] [facility] Instituteitor [id number]#1.00Nicole Yen [facility] Instituteitor Record [id number]#1.00DAGSBOROMerleAlexandria [facility] Pr[facility] HospitalOperative Reporton 28-94-6112Ifpzpxgwt ReportSURGERY DATE: 07/05/2023 PREOPERATIVE DIAGNOSIS: Atrial fibrillation, severe [...] Under fluoroscopic guidance the right femoral artery andright femoral vein were anesthetized with 1% lidocaine. Next the right femoral artery was accessed with a single anterior stick of a Cook needle followed by placement of an exchange length J-wire. Next a 4 [place]se sheath was placed without complications and flushed with heparinized saline. Next the right femoral vein was accessed with a single anterior stick of a Cook needle followed by placement of a short J-wire under fluoroscopic guidance. Next a 7 [place]se sheath was placed without complications and flushed with heparinized saline. Next a balloon tip Harshaw-Lois catheter was advanced under fluoroscopic guidance into [...] by thermal was 2.57. Next a 4 [place]se angled pigtail catheter was easily advanced into the left ventricular chamber. AO saturation was 84%. PA saturation was 46%. Simultaneous LV and wedge pressure demonstrated a large V wave indicating severe mitral regurgitation. Simultaneous LV and RV pressures demonstrated no overt evidence of pericardial constriction although the patient is in atrial fibrillation making that somewhat problematic. Harshaw-Lois catheter was then removed. The LV angiogram performed in the 30 degree right anterior oblique position demonstrated severe global LV dysfunction with an ejection fraction around 25- 30%. There was severe mitral regurgitation which completely filled the left atrium after the second beat. There was no significant gradient seen on pullback. Next the pigtail catheter was exchanged over a wire for a 4 [place]se JL5 catheter. This was easily engaged into [...] exchanged over a wire for a 4 [place] 3DRC catheter. This was easily engaged into the right coronary artery. There was no dampening or ventricularization upon engagement. Right coronary artery: The right coronary artery is a moderate size dominant vesse (more content not included)...[facility] - AndersonComment on above:Result Comment: Electronically Signed By: MARTINEZ MCMAHON, Johan Ribeiro.zak\Date and Time Signed: 07/05/23 11:46 ESTProgress Note-Nurseon 09-40-8345Gnstijpz Note-Nursecath lab made aware patient last dose of lovenox was given on 07/04/23 @ 1381.[facility] - AndersonProgress Note-Physicianon 07-05-2023 Progress Note-PhysicianAssessment/Plan 73-year-old female with history of ureteral stricture with previous dilations, anxiety disorder presented with complaints of urinary hesitancy, constipation, cough and shortness of breath and was [facility] with acute paroxysmal atrial fibrillation with [...] date 07/06/23 9:00:00 EST, 07/05/23 11:13:00 EST [facility] Hospital Care/Day Moderate 35 Minutes 90978 2. Acute systolic congestive heart failure (I50.21: Acute systolic (congestive) heart failure) Acute systolic congestive heart failure?present on admission. Seen by english composition teacher. She is status post cardiac catheterization that showed mild coronary artery disease. Also showed severe mitral regurgitation and tricuspid regurgitation.. Ejection fraction of 30 to 35%. Continue on aspirin, Coreg, losartan, Lasix. Ordered: Sbsq Hospital Care/Day Moderate 35 Minutes 43563 3. Severe mitral regurgitation (I34.0: Nonrheumatic mitral (valve) insufficiency) Severe mitral regurgitation?seen on cardiac catheterization. Follow-up with english composition teacher as outpatient for HAROON and then valvular repair. Ordered: [facility] Hospital Care/Day Moderate 35 Minutes 11696 4. Elevated troponin (R79.89: Other specified abnormal findings of blood chemistry) Secondary to type II non-ST segment elevation myocardial infarction from above and mild coronary artery disease.. Seen by english composition teacher and underwent cardiac catheterization that showed mild coronary artery disease. Continue on aspirin, Lipitor, and Coreg. Ordered: furosemide, 40 mg = 1 tab(s), Tab, Oral, Daily, Routine, Start date 07/06/23 9:00:00 EST, 07/05/23 11:13:00 EST [facility] Hospital Care/Day Moderate 35 Minutes 74041 5. Mild coronary artery disease (I25.10: Atherosclerotic heart disease of chipewwa coronary artery without angina pectoris) As seen on cardiac catheterization on 07/06/2023. Continue on Lipitor and aspirin. Ordered: [facility] Hospital Care/Day Moderate 35 Minutes 22583 6. Pleural effusion (J90: Pleural effusion, not [...] deep vein thrombosis (DVT) prophylaxis (Z79.899: Other usp (current) drug therapy) Lovenox. Disposition: Home in a.m. to follow-up with english composition teacher and urologist. I discussed the diagnosis and plan of care with the patient at the bedside. Moderate level of MDM based on addressing above issues. This documentation was transcribed using voice recognition software. Several attempts were made to ensure accuracy. However inadvertent computerized post tensioning ironworker helper errors may be present. Nahid Serrato. Hospitalist. Orders: Basic Metabolic Panel Basic Metabolic Panel Referral to [facility] Subjective Seen and examined. Offers no complaints today. Completed cardiac catheterization today. Offers no new complaints. Objective Vitals & Measurements T: 36.7 ?C(Axillary) TMIN: 36.5 ?C(Oral) TMAX: 36.9 ?C(Axillary) HR: 89(Monitored) BP: 102/64 SpO2:97% HT: 165.10 cm WT: 58.4 kg Intake & Output This (more content not included)...[facility] - AndersonComment on above:Result Comment: Electronically Signed By: JAZMÍN MCMAHON, Nahid\.br\Date and Time Signed: 07/05/23 11:19 ESTeGFRon 34-64-4076NUW/1.73 sq M.predicted among non-blacks MDRD (S/P/Bld) [Vol rate/Area]90 mL/min/1.73 e1Qjxcos>=59[facility] HospitalComment on above:Order Comment: Order added by Discern Expert. Result Comment: Chronic kidney disease could be indicated at eGFR's of less than 60 mL/min/1.73m2. Kidney failure is indicated at less than 15 mL/min/1.73m2. Performed By: #### [id number], [id number] ####[facility] [address] [place], [place] [address]Qqddflp Recordon 01-31-9724Wfduksa [id number]#1.00TIFFNormalWyandot Memorial Hospitalitor [id number]#1.00TIFF NormalCleveland Clinic Fairview HospitalMonitor Record [id number]#1.00TIFFNormUniversity Hospitals Elyria Medical Centeritor [id number]#1.00TIFThe Rehabilitation Instituteal [facility] HospitalPatient Education - Texton 66-28-2100Uwxeawn Education - [facility] HospitalProgress Note-Physicianon 92-39-6884Xbewwixq Note-PhysicianAssessment/Plan 73-year-old female with history of ureteral stricture with previous dilations, anxiety disorder presented with complaints of urinary hesitancy, constipation, cough and shortness of breath and was [facility] with acute paroxysmal atrial fibrillation with [...] BID, # 60 tab(s), Refills(s) 0, Pharmacy: [facility] #[id number], 165, cm, 07/02/23 21:30:00 EST, Height/Length Dosing, 55.7, kg, 07/02/23 21:30:00 EST, Weight Dosing Echo Transthoracic Complete Sbsq Hospital Care/Day Moderate 35 Minutes 62022 2. Acute systolic congestive heart failure (I50.21: Acute systolic (congestive) heart failure) Acute systolic congestive heart failure?present on admission. Cardiology is following. Ejection fraction of 30 to 35%. Cardiology is planning on cardiac catheterization for ischemic work-up in AM. Meanwhile continue on aspirin, Coreg, losartan. We will verify with english composition teacher about Lasix. Ordered: [facility] Hospital Care/Day Moderate 35 Minutes 49736 3. Elevated troponin (R79.89: Other specified abnormal findings of blood chemistry) Secondary to type II non-ST segment elevation myocardial infarction from above. Echocardiogram shows ejection fraction of 30 to 35%. Deputy Clerk following with plans for cardiac catheterization in AM. Meanwhile continue on aspirin and Coreg. Ordered: Echo Transthoracic Complete [facility] Hospital Care/Day Moderate 35 Minutes 27324 4. Pleural effusion (J90: Pleural effusion, not elsewhere classified) Small pleural effusion?secondary to acute systolic congestive heart failure. Supportive care. Lasix as needed. Ordered: [facility] Hospital Care/Day Moderate 35 Minutes 87782 5. Urinary hesitancy (R39.11: Hesitancy of micturition) Secondary to urethral stricture and urinary retention. She is status post Robles catheter placement. Urology consult reviewed by me. I appreciate and agreed recommendations. Patient will discharge with Robles catheter and leg bag to follow-up with urologist as outpatient. Ordered: [facility] Hospital Care/Day Moderate 35 Minutes 29701 6. Other urethral stricture, female (N35.82: Other [...] Stop date 07/03/23 12:00:00 EST, Routine, Start date07/03/23 12:00:00 EST, 07/03/23 12:00:00 EST polyethylene glycol 3350, 17 gram = 1 EA, Powder-Recon, Oral, Daily, NOW, Start date 07/03/23 11:16:00 EST [facility] Hospital Care/Day Moderate 35 Minutes 81440 9. On deep vein thrombosis (DVT) prophylaxis (Z79.899: Other usp (current) drug therapy) Lovenox. Disposition: Pending cardiac catheterization in AM. I discussed the diagnosis and plan of care with the patient at the bedside. I also spoke with the patient's daughter Mandeep over the phone. Moderate level of MDM based on addressing above issues. This documentation was transcribed using voice recognition software. Several attempts were made to ensure accuracy. However inadvertent computerized post tensioning ironworker helper errors may be present. Nahid Serrato. Hospitalist. [...] mL mL -- 176.8 (more content not included)...[facility] - AndersonComment on above:Result Comment: Electronically Signed By: JAZMÍN MCMAHON, Nahid\.br\Date and Time Signed: 07/04/23 10:53 ESTProgress Note-PhysicianSubjective Patient doing well this morning, denies any [...] chest x-ray, but no overt pleural effusion noted.We will hold off on diuretic therapy at [...] deep vein thrombosis (DVT) prophylaxis (Z79.899: Other usp (current) drug therapy) Urinary retention (R33.9: Retention [...] Inhalation, QID, PRN f (more content not included)...[facility] - AndersonComment on above:Result Comment: Electronically Signed By: MARTINEZ MCMAHON, Johan Ribeiro.br\Date and Time Signed: 07/04/23 08:04 ESTCHEMISTRYOrdered By: SYSTEM SYSTEM on 07-03-2023 Cholesterol [Mass/Vol]145 mg/jKLdwjcg785 - 200 mg/dLFT RemisolCholesterol in HDL [Mass/Vol]43 mg/dLInvalid Interpretation CodeFT RemisolComment on above: Interpretive Data: HDL > or equal to 60 mg/dL: Low cardiovascular risk HDL < 40 mg/dL : High cardiovascular riskCholesterol in LDL [Mass/Vol]99 mg/dL Normal<=129mg/dLFTMC RemisolCholesterol in VLDL [Mass/Vol]17 mg/dLNormal7 - 40 mg/dLFTMC RemisolTriglyceride [Mass/Vol]85 mg/dLNormal<=149mg/dLFTMC Remisol Troponin I.cardiac [Mass/Vol]27.10 pg/rQDkkmwi45.10 - 27.10 pg/mLFTMC Remisol Comment on above:Interpretive Data: The 95% CI (Confidence Interval) PPV (Positive Predictive Value) for myocardial infarction in females is 38 pg/mL, in males 51 pg/mL. The results should be used in conjunction withclinical conditions of myocardial infarction. (Access High Sensitivity Troponin I Instructions For Use, Marlys Ariadne, March 2018)TSH Qn3.83 m[IU]/LNormal0.34 - 5.60 mcIU/mLCORNERSTONE SPECIALTY [facility] RemisolCHEMISTRY Ordered By: Cecy Correa on 88-49-2067McK9c (Bld) [Mass fraction]5.5 %Normal <=5.9%[facility] ChemAutoSSConsultation Noteon 84-29-8692Ozxvrgddiqjg NotePatient: HARJIT ASENCIO I Age: 73 years Sex: [...] day(s), # 14 cap(s), Refills(s) 0, Pharmacy: [facility] #[id number], 165, cm, 06/30/23 19:37:00 EST, Height/Length Dosing, 55.7, kg, 06/30/23 19:37:00 EST, Weight Dosing Cipro 500 mg Tab: 500 mg = 1 tab(s), Oral, As Directed, Patient to take 1 tab the day before procedure and the 2nd tab the day of procedure once completed, # 2 tab(s), Refills(s) 0, Pharmacy: [facility] #[id number], 165, cm, 04/26/23 15:23:00 EDT, Height/Length Do... Estrace 0.1 mg/g Cream: 0.5 gm, Vaginal, MonFri, 42.5 gm, Refill(s) 6 Zofran ODT 4 mg Tab-Dis: 4 mg = 1 tab(s), Oral, q8hr, # 12 tab(s), Refills(s) 0, Pharmacy: [facility] #[id number], 165, cm, 06/30/23 19:37:00 EST, Height/Length Dosing, 55.7, kg, 06/30/23 19:37:00 EST, Weight Dosing Documented Medications Documented Ativan 0.5 mg Tab: 0.5 mg = 1 tab(s), Oral, TID, PRN as needed for anxiety, Refills(s) 0 Problem list: All Problems acid reflux / SNOMED CT 898848012 / Confirmed anxiety / SNOMED CT 25495710 / Confirmed Injury of nose / SNOMED CT 09263136 / Confirmed Superficial laceration of face / SNOMED CT 729170421 / Confirmed Acute gastroenteritis / SNOMED CT 578334513 / Confirmed Other urethral stricture, female / SNOMED CT 214877641 / Confirmed Nocturia / SNOMED CT 288192354 / Confirmed Urinary hesitancy / SNOMED CT 229733751 / Confirmed Former smoker / SNOMED CT 29224120 / Confirmed Urinary frequency / SNOMED CT 921092329 / Confirmed Feeling of incomplete bladder emptying / SNOMED CT 462125536 / Confirmed Urinary urgency / SNOMED CT 906426602 / Confirmed Dysuria / SNOMED CT 11914566 / Confirmed Suprapubic pain / SNOMED CT 130352169 / Confirmed Poor urinary stream / SNOMED CT 674018248 / Confirmed Cystocele with prolapse / SNOMED CT 473884264 / Confirmed Stranguria / SNOMED CT 074008650 / Confirmed History of urethral stricture / SNOMED CT 231783448 / Confirmed Weak urine stream / SNOMED CT 804227739 / Confirmed Atrophic vaginitis / SNOMED CT 51988496 / Confirmed Renal lesion / SNOMED CT 5791098314 / Confirmed Histories Past Medical History: Active acid reflux (962168029) anxiety (03251906) Acute gastroenteritis (987443638) Family History: Heart disease Father Diabetes mellitus type 2 Mother Procedure history: Cystourethroscopy with dilation of urethral stricture (019508185) on 10/25/2022 at 72 Years. Cystoscopy/UD (47109494) on 02/23/2021 at 70 Years. Dilation of urethra (23672351) on 02/01/2019 at 68 Years. Cysto/ UD (197885870) on 10/10/2017 at 67 Years. Hysterectomy. colon resection. Corneal implant (844695594). Tonsillectomy (528315385). Dilation of urethra (85982483). Comments: 08/09/2019 13:23 KYA - Darshan SALAS, Tim Velazco (more content not included)...[facility] AndersonComment on above:Result Comment: Electronically Signed By: DYLAN MCMAHON, Cody Dumont\.br\Date and Time Signed: 07/03/23 19:12 ESTED Clinical Summaryon [id number] Clinical Summary [id number] ED Clinical Summary Person Information Name: HARJIT ASENCIO I Patricia/Wright-Patterson [facility] Age[facility] 73 Years : 1950 Sex: Female Language: Tongan PCP: Peggy Nazario MD Marital Status: Visit Id: Visit Reason: Genitourinary problem; 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 Speciality: Acuity: 3 Enc Type: Observation Med Service: Emergency Arrival: 07/02/2023 21:17:31 Discharge: LOS: 000 05:33 Checkin: 07/02/2023 21:17:31 Checkout: 07/03/2023 02:50:11 Dispo Type: Admitted as IP to this [facility] EVENTS: Event Name Event Status Request [...] 07/03/2023 02:36:18 07/03/2023 02:36:18 07/03/2023 02:36:19 ADDRESS: [address] [place] [address] [address] [facility] [id number] PHYS DOC NOTES: MEDICAL INFORMATION: Prescriptions Given: [...] fibrillation with RVR; 3:New onset a-fib; 4:Elevated troponinNormalFisher Lenoir Medical CenterED Note-Physicianon 05-57-9666DS Note-PhysicianBasic Information Time Seen: Layton Crawford M.D. 07/02/2023 [...] sounds equal, symmetrical expansion Chest wall: no deformity,notenderness Gastrointestinal: soft, non distended, no tenderness, no [...] and Complexity of Problems Differential Diagnosis: [] [facility] Data External documents reviewed: [] My [...] solution 100 mL, 100 mL, IV, 5 mL/hr,STAT, Start date 07/02/23 23:19:00 EST, 20 hour(s), Total volume (mL): 100, 5-15 mg/hr, Titrate perprotocol, 55.7 kg, 1.6, m2 lorazepam, 0.5 mg = 1 tab(s), Tab, Oral, Once, Stop date 07/02/23 22:33:00 EST, STAT, Start date 07/02/23 22:33:00 EST, 07/02/23 22:33:00 EST Sodium Chloride 0.9% intravenous solution, 1,000 mL, Soln-IV, IV, Once, Stop date 07/02/23 22:57:00EST, STAT, Start date 07/02/23 22:57:00 EST, Infuse [...] Sodium Chloride 0.9% intrave (more content not included)...[facility] AndersonComment on above:Result Comment: Electronically Signed By: Yvette Vasquez, Layton Cazares\.br\Date and Time Signed: 07/03/2308:17 ESTED Patient Education Noteon [id number] Patient Education NoteNormBerger Hospital Patient Summaryon [id number] Patient Summary [place] [id number] Patient Discharge Instructions Person Information Name: HARJIT ASENCIO I Age: 73 Years Arrival Date: 07/02/2023 21:17:31 Discharge Diagnosis: 1:Urinary hesitancy; 2:Atrial fibrillation with RVR; 3:New onset a-fib; 4:Elevated troponin Primary Care Physician: Peggy Nazario MD Provider Information Primary Provider: Layton Crawford M.D. Advanced Visual Display Manager:None The exam and treatment you received in the Emergency Department were for an urgent problem and are not intended as complete care. It is important that you follow up with a doctor, nurse practitioner,or physician?s digital assistant for ongoing care. If your symptoms [...] opioids can be used to help relieve ihqbpktx-ut-cjcyeg pain and are often prescribed following a [...] and have fewer risks and side effects. Optionsmay include: ? Pain relievers such as acetaminophen, [...] unused prescription opioids: Find your community drug take- back program or [facility] hospitalN[facility] TechnologiesMore [facility] mail-back program, or flush them down the toilet, following guidance from the Food and Drug Administration (www.fda.gov/Drugs/ResourcesForYou). ? Visit www.cdc.gov/drugoverdose to learn about the risks of opioids abuse and overdose. ? If you believe you may be struggling with addiction, tell your health resident care coordinator and ask for guidance or call [facility]?S National Helpline at 0-442-912-KLGG. i Source: [place] Department of Health and Human Services/Center for Disease Control & Prevention [facility] [place]more content not included)...NormalCleveland Clinic Fairview HospitalHep Func Panelon 09-59-7896Lyzhjae [Mass/Vol]3.8 g/dLNormal 3.3-5.0[facility] HospitalComment on above:Performed By: #### 19977553, 3655350, 2580571, 9920318, 4304302, 95686896, 6220931 ####[facility] [address] [place], [place] [address]Rsikexh/Globulin (S) [Mass conc ratio]1.7Uqoxkb8.1-2.2Fisher [facility] Pratt HospitalComment on above:Performed By: #### 26864597, 7997746, 9845950, 4602250, 2279353, 99399731, 2757358 ####[facility] [address] [place], [place] [address]UQC [Catalytic activity/Vol]58 Int._Unit/EGcsupk14-86WtjwgsCleveland Clinic Fairview Hospital Comment on above:Performed By: #### 18192924, 3529795, 5043341, 9567156, 2817852, 36884360, 3260056 ####[facility] [address] [place], [place] [address]POM No additional P-5'-P [Catalytic activity/Vol]66 Int._Unit/LHigh6-46C[facility] Fairview HospitalComment on above:Performed By: #### 42627979, 7080206, 9212093, 3408462, 4711456, 32656035, 3252959 ####[address] [address]XBM [Catalytic activity/Vol]81 Int._Unit/LHigh5-43C[facility]view HospitalComment on above: Performed By: #### 54873105, 2978889, 7239402, 5943327, 8837465, 56991980, 5682980 ####[address] [address]Lpjmqhdpn [Mass/Vol]0.5 mg/dLNormal0.0-1.1FKnox Community Hospital Comment on above:Performed By: #### 45219803, 3278273, 5698952, 1396738, 8659840, 41890653, 1452198 ####[address] [address]Oaborsyfd.direct [Mass/Vol]0.1 mg/dLNormal0.1-0.4FKnox Community HospitalComment on above:Performed By: #### 01162921, 8389682, 3983416, 5410830, 1116566, 24153172, 6320773 ####[address] [address]Chxwyqbur.indirect [Mass or moles/Vol]0.4 mg/dLNormal0.1-0.9[facility] HospitalComment on above: Performed By: #### 44142483, 3544019, 6922993, 1354297, 1367876, 44845525, 1773534 ####[address] [address]Qkyoxtwi (S) [Mass/Vol]2.9 g/dLNormal1.4-4.0[facility] Comment on above:Performed By: #### 09839872, 2257086, 4547483, 4330214, 2435669, 63109519, 5192514 ####[address] [address]Cqbhsnw [Mass/Vol]6.7 g/dLNormal6.0-7.8[facility] HospitalComment on above:Performed By: #### 76028010, 1669673, 6183776, 6710509, 6782740, 05532331, 3611733 ####[facility] [address] [place], [place] [address]JioR2tld 37-09-3348QaA1c (Bld) [Mass fraction]5.5 %Normal <=5.9[facility] Fairview HospitalComment on above:Performed By: #### 2990476, 73217369, 5168516, 5885299, 1053039, 6050456 #### [facility] [address] [place], [place] [address]Inxnnqxphdqizjreh Note - Case Manageron 07-03-2023 Interdisciplinary Note - Case ManagerCRM to room to discuss DC planning. Patient is awake, alert and oriented. Patient verified PCP, home DME and insurance. Patient is from home alone, she drove herself here and plans to drive self home. Patient is observation, Fernandez form signed. Patient is here for urinary retention and A Fib. Patienthas a Robles. Patient is assigned to Dr Serrato, see notes. Patient has consults of Cardiology and Urology. Patient at this time denied needs for HH, PM or DME at DC. Patient was provided CRM contact, white board updated. Anticipated DC TBD. CRM followingNoProMedica Memorial Hospital Comment on above:Result Comment: Electronically Signed By: Brigitte Nazario\.zak\Date and Time Signed: 07/03/23 13:05 ESTLipid Panelon 07-03-2023 Cholesterol [Mass/Vol]145 mg/yUHubxdo474-830GmzpnmCleveland Clinic Fairview HospitalComment on above:Performed By: #### 9325591, 91326668, 6238053, 1070290, 1381001, 2866560 #### [facility] [address] [place], [place] [address]Mianxkuyyeh in HDL [Mass/Vol]43 mg/dLInvalid Interpretation CodeCleveland Clinic Fairview HospitalComment on above:Result Comment: HDL > or equal to 60 mg/dL: Low cardiovascular risk HDL < 40 mg/dL : High cardiovascular riskPerformed By: #### 1850232, 59166032, 6358239, 1214951, 2460439, 1108626 #### [facility] [address] [place], [place] [address]Gutekpackly in LDL [Mass/Vol]99 mg/dLNormal<=129C[facility] Fairview HospitalComment on above:Performed By: #### 5879305, 78889375, 2743650, 6692339, 1755276, 2091050 #### [facility] [address] [place], [place] [address]Gqisugrcbec in VLDL [Mass/Vol]17 mg/dLNormal7-40C[facility] HospitalComment on above:Performed By: #### 9133402, 66109012, 3452343, 5418928, 4350867, 0516816 #### [facility] [address] [place], [place] [address]Xqxripwgzqrq [Mass/Vol]85 mg/dLNormal<=149C[facility] HospitalComment on above:Performed By: #### 8231700, 79123190, 7556416, 1011800, 0556025, 0053046 #### [facility] [address] [place], [place] [address]Orrdqoqbmmq 06-22-2651Tgdoapvnd [Mass/Vol]2.0 mg/dLNormal 1.3-2.4Fisher [facility] Pr[facility] HospitalComment on above:Performed By: #### 89054742, 6278254, 3029326, 1500779, 9639970, 88293565, 8531569 ####[facility] [address] [place], [place] [address]Rmazisj from Medicareon 10-90-2131Wlixvsq from Medicare [id number]#1.00TIFFNormalCleveland Clinic Fairview HospitalMonitor Recordon 98-96-7432Rwlfuwf Record [id number]#1.00[place] Instituteitor [id number]#1.00ERNESTINEFLalitha Yen [facility] Instituteitor Record [id number]#1.00[place] [facility] HospitalProgress Note-Physicianon 56-80-1399Tponvmee Note-PhysicianAssessment/Plan 73-year-old female with history of urethral stricture [...] I ordered echocardiogram. Ordered: Echo Transthoracic Complete [facility] Care/Day Moderate 35 Minutes 68050 2. Elevated troponin (R79.89: Other specified abnormal findings of blood chemistry) Secondary to type II non-ST segment elevation myocardial infarction from above. Echocardiogram ordered. Cardiology consult pending. Continue on aspirin. Ordered: Echo Transthoracic Complete [facility] Care/Day Moderate 35 Minutes 31283 3. Urinary hesitancy (R39.11: Hesitancy of micturition) Secondary to urethral stricture. Patient is status post Robles catheter placement for urinary retention. She will follow-up with urologist as outpatient. Ordered: [facility] Care/Day Moderate 35 Minutes 73294 4. Constipation (K59.00: Constipation, unspecified) Started patient on MiraLAX and lactulose. Ordered: lactulose, 20 gram = 30 mL, Syrup, Oral, Once, Stop date 07/03/23 12:00:00 EST, Routine, Start date07/03/23 12:00:00 EST, 07/03/23 12:00:00 EST polyethylene glycol 3350, 17 gram = 1 EA, Powder-Recon, Oral, Daily, Routine, Start date 07/03/23 12:00:00 EST, 07/03/23 12:00:00 EST [facility] Care/Day Moderate 35 Minutes 40121 5. Other urethral stricture, female (N35.82: Other urethral stricture, female) Resulting in urinary retention. Patient is status post Robles catheter during this admission. Gets dilation of the ureter every 6 months. Urology consult pending. 6. On deep vein thrombosis (DVT) prophylaxis (Z79.899: Other usp (current) drug therapy) Lovenox. Disposition: Pending echocardiogram, cardiology and urology consult. I discussed the diagnosis and plan of care with the patient at the bedside. Moderate level of MDM based on addressing above issues. This documentation was transcribed using voice recognition software. Several attempts were made to ensure accuracy. However inadvertent computerized post tensioning ironworker helper errors may be present. Nahid Serrato. Hospitalist. [...] 6.2 E9/L (07/02/23 22:10:00) RBC: 4.3 E12/L (07/02/23:10:00) HGB: 12.7 gm/dL (07/02/23 22:10:00) Hct: 38.5 % (07/02/23 22:10:00) MCV: 90.3 fL (07/02/23 22:10:00) MCH: 29.7 pg (07/02/23:10:00) MCHC: 32.9 gm/dL (07/02/23 22:10:00) RDW: 13.5 % (07/02/23 22:10:00) Platelet: 183 E9/L (07/02/23 22:10:00) MPV: 9.1 fL (07/02/23 22:10:00) Neutro Auto: 76.7 % High (07/02/23 22:10:00) Lymph Auto: 15.3 % (07/02/23 22:10:00) [place] Auto: 7.7 % (07/02/23 22:10:00) Eos Auto: 0 % (07/02/23 22:10:00) Baso (more content not included)...[facility] - AndersonComment on above:Result Comment: Electronically Signed By: JAZMÍN MCMAHON, Nahid\.br\Date and Time Signed: 07/03/23 10:57 ESTTS With T4fr Reflexon 85-47-1856SQD Qn3.83 m[IU]/LNormal0.34-5.60[facility] HospitalComment on above:Performed By: #### 2800356, 25899105, 1802693, 9167889, 5025246, 0299244 #### [facility] [address] [place], [place] [address]Tjlahvudak 89-31-6249Qtwyseie I.cardiac [Mass/Vol]27.10 pg/mL Ilscbn98.10-27.10[facility] HospitalComment on above:Result Comment: The 95% CI (Confidence Interval) PPV (Positive Predictive Value) for myocardial infarction in females is 38 pg/mL, in males 51 pg/mL. The results should be used in conjunction with clinical conditions of myocardial infarction. (Access High Sensitivity Troponin I Instructions For Use, meets, March 2018)Performed By: #### 2414672, 55665058, 5242911, 7649475, 0488162, 2628727 #### [facility] [address] [place], [place] [address]Hjsjnxtv 0 Hr.on 62-28-4067Bcnguigo I.cardiac [Mass/Vol]27.30 pg/oQTkbl13.10-27.10[facility] HospitalComment on above:Result Comment: The 95% CI (Confidence Interval) PPV (Positive Predictive Value) for myocardial infarction in females is 38 pg/mL, in males 51 pg/mL. The results should be used in conjunction with clinical conditions of myocardial infarction. (Bazaarvoice High Sensitivity Troponin I Instructions For Use, meets, March 2018)Performed By: #### 88565764, 0279890, 5471260, 5070750, 7231766, 50535635, 1786439 ####[facility] [address] [place], [place] [address]Imjsoiah 3 Hr.Ordered By: SYSTEM SYSTEM on 07-03-2023 Troponin I.cardiac [Mass/Vol]27.70 pg/yZRkao09.10-27.10[facility] RemisolComment on above:Interpretive Data: The 95% CI (Confidence Interval) PPV (Positive Predictive Value) for myocardial infarction in females is 38 pg/mL, in males 51 pg/mL. The results should be used in conjunction withclinical conditions of myocardial infarction. (Access High Sensitivity Troponin I Instructions For Use, meets, March 2018)Result Comment: The 95% CI (Confidence Interval) PPV (Positive Predictive Value) for myocardial infarction in females is 38 pg/mL, in males 51 pg/mL. The results should be used in conjunction with clinical conditions of myocardial infarction. (Access High Sensitivity Troponin I Instructions For Use, meets, March 2018)Performed By: #### 9394291, 67560954, 0880038, 4008623, 4685437, 3260611 #### [facility] [address] [place], [place] [address]LC Chest Single Viewon 16-12-4586UK Chest Single ViewExam Date/Time: 07/02/2023 23:18 EST Reason for Exam: [...] ARAVIND Technologist: RADHA Technical Comments Radiation Dose: Kar in mGy = na DAP = naNormalCleveland Clinic Fairview HospitalAuto Diffon 40-91-0713Kkjjihjwh/100 WBC (Bld)0.3 %Normal0.0-2.0[facility] HospitalComment on above:Order Comment: Order Added by Discern Expert.Performed By: #### 82139852, 3215175, 4802525, 5745116, 4950914, 01057250, 6883643 ####[facility] [address] [place], [place] [address]Wznniyfcf/Leukocytes Auto (Bld) [Pure # fraction]0.0 E9/LNormal0.0-0.2Fisher [facility] Pr[facility] HospitalComment on above: Order Comment: Order Added by Discern Expert.Performed By: #### 34405973, 3494314, 5617542, 9778539, 7810395, 09195203, 0201997 ####Farshad [address] [address]Wdfapecwyae/100 WBC (Bld)0.0 % Normal0.0-8.0[facility] HospitalComment on above:Order Comment: Order Added by Discern Expert.Performed By: #### 07801252, 8666177, 1725609, 4006237, 0022844, 72655945, 3281871 ####Yen [address] [address]Qyjflyijayo/Leukocytes Auto (Bld) [Pure # fraction]0.0 E9/L Normal0.0-0.5FKnox Community HospitalComment on above:Order Comment: Order Added by Discern Expert.Performed By: #### 80279277, 2428087, 7931572, 7157640, 3188165, 55908526, 1284842 ####Yen [address] [address]Rmsfcxkfqqd/100 WBC (Bld)15.3 %Ydsuxx24.0-50.0[facility] HospitalComment on above:Order Comment: Order Added by Discern Expert. Performed By: #### 87817491, 6847926, 1650112, 3542643, 9531930, 08520616, 7876888 ####Yen [address] [address]Jbetnkbzgri/Leukocytes Auto (Bld) [Pure # fraction]0.9 E9/LLow1.0-4.0[facility] HospitalComment on above:Order Comment: Order Added by Discern Expert.Performed By: #### 37451781, 5244979, 7538540, 2207038, 1924728, 62846179, 7605783 ####Yen [address] [address]Fnvpmcjan/100 WBC (Bld)7.7 %Normal4.0-14.0[facility] HospitalComment on above:Order Comment: Order Added by Discern Expert. Performed By: #### 48001770, 6251689, 9217750, 1243467, 7296636, 91762235, 7822319 ####[place] [address] [place], [place] [address]Fryzvfqxv/Leukocytes Auto (Bld) [Pure # fraction]0.5 E9/LNormal0.2-1.0 [facility] HospitalComment on above:Order Comment: Order Added by Discern Expert.Performed By: #### 66450202, 4893041, 7400288, 8994907, 4283848, 06339337, 5405101 ####[address] [address]Zuilddfpcct/100 WBC (Bld)76.7 %High36.0-75.0[facility] HospitalComment on above:Order Comment: Order Added by Discern Expert. Performed By: #### 62430123, 1462664, 4813654, 4926471, 8126203, 33915467, 7234999 ####[address] [address]Hxhriblnlan/Leukocytes Auto (Bld) [Pure # fraction]4.7 E9/LNormal2.0-7.5 [facility] HospitalComment on above:Order Comment: Order Added by Discern Expert.Performed By: #### 30896029, 4060748, 8006774, 2463002, 3594179, 62096131, 7002489 ####[address] [address]MBLcy 16-59-4428Xoiqygcuzx [Mass/Vol]1.0 mg/dLNormal0.5-1.3 [facility] HospitalComment on above:Performed By: #### 61602039, 1317159, 2775978, 6501652, 9900385, 04877175, 2236934 ####[place] [address] [place], [place] [address]Xmwb nitrogen [Mass/Vol]13 mg/dLNormal5-21[facility] HospitalComment on above:Performed By: #### 42585974, 7946984, 9652571, 8765080, 2807044, 65885256, 5660452 ####[facility] [address] [place], [place] [address]Tvrj nitrogen/Creatinine [Mass ratio]13 No GebmtOcyrwz15-56YoamkpCleveland Clinic Fairview HospitalComment on above:Performed By: #### 07979378, 4107797, 7289296, 6183188, 1843174, 81574255, 2121270 ####[facility] [address] [place], [place] [address]Toepd gap [Moles/Vol]13 mmol/LNormal6-16[facility] HospitalComment on above:Performed By: #### 33383126, 4005737, 4390768, 9209482, 2241893, 27596396, 0318507 ####[address] [address]Syfzjyl [Mass/Vol]9.1 mg/dLNormal8.9-11.1FKnox Community HospitalComment on above:Performed By: #### 29701277, 4191510, 1644119, 7652970, 2357291, 40565929, 6009424 ####[place] [place], [place] [address]Fuqskpla [Moles/Vol]100 mmol/DTxr787-250TejzfyCleveland Clinic Fairview HospitalComment on above:Performed By: #### 80528649, 4018882, 0634317, 0927543, 0101015, 13428532, 0308800 ####[place] [address] [place], [place] [address]IQ7 [Moles/Vol]24 mmol/SMaedqz00-59 [facility] HospitalComment on above:Performed By: #### 26402145, 2051793, 1029212, 0733758, 6692534, 05064103, 3769394 ####[facility] [address] [place] [address]Klanalx [Mass/Vol]129 mg/dL Vfunmj61-879YtknynCleveland Clinic Fairview HospitalComment on above:Result Comment: If this glucose result represents a fasting glucose, interpretation should refer tothe following reference range: 55-99 mg/dLPerformed By: #### 05548541, 9733270, 6136162, 3293884, 0713515, 79173203, 0245438 ####[facility] [address] [place], [place] [address]Givdxzxms [Moles/Vol]3.8 mmol/LNormal 3.5-5.3FKnox Community HospitalComment on above:Performed By: #### 58168970, 0676640, 7068184, 9552642, 3298066, 85522364, 5150862 ####[facility] [address] [place], [place] [address]Vjxzva [Moles/Vol]133 mmol/L Hez519-138HjczlfCleveland Clinic Fairview HospitalComment on above:Performed By: #### 66472410, 5499455, 1057897, 0963799, 6829146, 26358008, 6556959 ####[facility] [address] [place], [place] [address]UKM w/ Auto Diffon 47-87-1043Ctvifwdpiob distribution width (RBC) [Ratio]13.5 %Bbazud89.9-14.2 [facility] HospitalComment on above:Performed By: #### 09658936, 9546562, 9727910, 6068769, 4254721, 01000916, 7503447 #### [facility] [address] [place], [place] [address]Cbosgdwekn (Bld) [Volume fraction]38.5 %Jsculd73.0-46.0[facility] HospitalComment on above:Performed By: #### 75377352, 7111361, 7437798, 8795254, 1689083, 87073839, 6192313 #### [facility] [address] [place], [place] [address]Uhockonvwl (Bld) [Mass/Vol]12.7 g/tTSuakje17.0-16.0[facility] HospitalComment on above:Performed By: #### 29306210, 6665215, 8432746, 1307538, 3076083, 54493862, 1776150 #### [facility] [address] [place], [place] [address]BRH (RBC) [Entitic mass]29.7 nxLpyjht50.0-34.0[facility] HospitalComment on above:Performed By: #### 36185504, 6582993, 8501965, 1540928, 9012369, 56308050, 8425871 #### [facility] [address] [place] [address] (RBC) [Mass/Vol]32.9 g/iQOipdau70.4-36.0[facility] HospitalComment on above:Performed By: #### 73175834, 2063493, 3716080, 7711526, 4896392, 36285810, 2563392 #### [facility] [address] [place] [address]AZV (RBC) [Entitic vol]90.3 qQCeqtbw86.0-100.0[facility] HospitalComment on above:Performed By: #### 94503209, 3400931, 5831435, 4757076, 5907435, 78804968, 2813425 #### [facility] [address] [place], [place] [address]Svgdsmwe mean volume (Bld) [Entitic vol]9.1 fLNormal6.4-10.8 [facility] HospitalComment on above:Performed By: #### 20346891, 8044863, 3482740, 6171562, 9459035, 48894354, 5270492 #### [facility] [address] [place], [place] [address]Bmseesmme (Bld) [#/Vol]183.0 E9/GUsoltv544.0-500.0[facility] HospitalComment on above:Performed By: #### 27001326, 4572241, 8591865, 7316183, 4697505, 29375916, 0924209 #### [facility] [address] [place], [place] [address]CSV (Bld) [#/Vol]4.3 E12/LNormal4.3-5.9[facility] HospitalComment on above:Performed By: #### 69281612, 1164923, 1485197, 4255194, 9007343, 38634237, 3887451 #### [facility] [address] [place], [place] [address]SVM corrected for nucl RBC Auto (Bld) [#/Vol]6.2 E9/LNormal 4.0-11.0[facility] HospitalComment on above:Performed By: #### 35677310, 1165081, 5785578, 7519843, 0723014, 30558283, 8668546 #### [facility] [address] [place], [place] [address]HOSLGXEYDBrxmcym By: SYSTEM SYSTEM on 46-32-6687Zhkoynh [Mass/Vol]3.8 g/dLNormal3.3 - 5.0 gm/dLFTMC RemisolAlbumin/Globulin [Mass ratio] 1.3 {ratio}Normal1.1 - 2.2FTMC RemisolALP [Catalytic activity/Vol]58 [iU]/d Qqbaur56 - 98 Int._Unit/LFTMC RemisolALT No additional P-5'-P [Catalytic activity/Vol]66 [iU]/dHigh6 - 46 Int._Unit/LFTMC RemisolAnion gap [Moles/Vol]13 mmol/LNormal6 - 16 mEq/LFTMC RemisolAST [Catalytic activity/Vol]81 [iU]/dHigh5 - 43 Int._Unit/LFTMC RemisolBilirubin [Mass/Vol]0.5 mg/dLNormal0.0 - 1.1 mg/dL [facility] RemisolBilirubin.direct [Mass/Vol]0.1 mg/dLNormal0.1 - 0.4 mg/dLFTMC RemisolBilirubin.indirect [Mass or moles/Vol]0.4 mg/dLNormal0.1 - 0.9 mg/dLFTMC RemisolCalcium [Mass/Vol]9.1 mg/dLNormal8.9 - 11.1 mg/dLFTMC RemisolChloride [Moles/Vol]100 mmol/HVcz343 - 111 mmol/LFTMC RemisolCO2 [Moles/Vol]24 mmol/L Ickjuw36 - 31 mmol/LFTMC RemisolCreatinine [Mass/Vol]1.0 mg/dLNormal0.5 - 1.3 mg/dLFTMC RemisolGFR/1.73 sq M.predicted among non-blacks MDRD (S/P/Bld) [Vol rate/Area]59 mL/min/1.73 f1Jmbgkr>=59mL/min/1.73 m2FT Chem SComment on above: Interpretive Data: Chronic kidney disease could be indicated at eGFR's of less than 60 mL/min/1.73m2. Kidney failure is indicated at less than 15 mL/min/1.73m2.Globulin (S) [Mass/Vol]2.9 g/dLNormal1.4 - 4.0 gm/dLFT Remisol Glucose [Mass/Vol]129 mg/xXLmuvua96 - 199 mg/dLFT RemisolComment on above: Interpretive Data: If this glucose result represents a fasting glucose, interpretation should referto the following reference range: 55-99 mg/dL Magnesium [Mass/Vol]2.0 mg/dLNormal1.3 - 2.4 mg/dLFTMC RemisolPotassium [Moles/Vol]3.8 mmol/LNormal3.5 - 5.3 mmol/LFTMC RemisolProtein [Mass/Vol]6.7 g/dLNormal6.0 - 7.8 gm/dLFT RemisolSodium [Moles/Vol]133 mmol/PCfy843 - 145 mmol/LFTMC RemisolTroponin I.cardiac [Mass/Vol]27.30 pg/vWEnno69.10 - 27.10 pg/mLFTMC RemisolComment on above:Interpretive Data: The 95% CI (Confidence Interval) PPV (Positive Predictive Value) for myocardial infarction in females is 38 pg/mL, in males 51 pg/mL. The results should be used in conjunction with clinical conditions of myocardial infarction. (Access High Sensitivity Troponin I Instructions For Use, Marlys Ariadne, March 2018)Urea nitrogen [Mass/Vol]13 mg/dLNormal5 - 21 mg/dLCORNERST[facility] RemisolUrea nitrogen/Creatinine [Mass ratio]13 mg/vdAucycj18 - 20[facility] RemisolCOAGULATION Ordered By: Lan Eastman on 64-28-3847sWED Coag (PPP) [Time]30.2 xLpjynr91.1 - 36.5 second(s)[facility] Auto CoagComment on above:Interpretive Data: Parameter 15 days - 4 weeks 1 - [...] the same coagulation reagent and instrumentation as [facility]. Currently there are no coagulation studies available worldwide for children to 14 days, andno normal ranges. Heparin therapeutic range (represented by Anti-Factor Xa activity of 0.2 - 0.4 U/mL) corresponds to PTT of 56.6 - 109.0 sec.INR Coag (PPP) [Relative time]1.2 {INR}Invalid Interpretation CodeCORNERSTONE [facility] Auto CoagComment on above:Interpretive Data: INR results are specifically intended to assess patients stabilized on long-term Anticoagulation therapy suggested INR s Less Intensive Anticoagulation 2.0 3.0 Conventional Range 3.0 4.5PT Coag (PPP) [Time]13.2 sHigh9.4 - 12.5 second(s)[facility] Auto CoagComment on above:Interpretive Data: 15 days - 4 weeks 1 - [...] the same coagulation reagent and instrumentation as [facility]. Currently there are no coagulation studies available worldwide for children to 14 days, andno normal ranges.Consent for Treatmenton 75-27-5228Svngdad for Treatment [id number] CenterHEMATOLOGYOrdered By: SYSTEM SYSTEM on 05-69-7593Lxrlwptue/100 WBC (Bld) 0.3 %Normal0.0 - 2.0 %[facility] HemeAutoSSBasophils/Leukocytes Auto (Bld) [Pure # fraction]0.0 E9/LNormal0.0 - 0.2 E9/LFTMC HemeAutoSSEosinophils/100 WBC (Bld)0.0 %Normal0.0 - 8.0 %[facility] HemeAutoSSEosinophils/Leukocytes Auto (Bld) [Pure # fraction]0.0 E9/LNormal0.0 - 0.5 E9/LFTMC HemeAutoSSLymphocytes/100 WBC (Bld) 15.3 %Yrfktu81.0 - 50.0 %[facility] HemeAutoSSLymphocytes/Leukocytes Auto (Bld) [Pure # fraction]0.9 E9/LLow1.0 - 4.0 E9/LFTMC HemeAutoSSMonocytes/100 WBC (Bld)7.7 % Normal4.0 - 14.0 %[facility] HemeAutoSSMonocytes/Leukocytes Auto (Bld) [Pure # fraction]0.5 E9/LNormal0.2 - 1.0 E9/LFTMC HemeAutoSSNeutrophils/100 WBC (Bld) 76.7 %High36.0 - 75.0 %[facility] HemeAutoSSNeutrophils/Leukocytes Auto (Bld) [Pure # fraction]4.7 E9/LNormal2.0 - 7.5 E9/LFTMC HemeAutoSSHEMATOLOGYOrdered By: Lan Eastman on 52-55-5061Tvjdgavfbln distribution width (RBC) [Ratio]13.5 %Normal 10.9 - 14.2 %[facility] HemeAutoSSHematocrit (Bld) [Volume fraction]38.5 %Kekvfc65.0 - 46.0 %[facility] HemeAutoSSHemoglobin (Bld) [Mass/Vol]12.7 g/iOAiooxi86.0 - 16.0 gm/dL [facility] HemeAutoSSMCH (RBC) [Entitic mass]29.7 ovQufjwy93.0 - 34.0 pgFTMC HemeAutoSSMCHC (RBC) [Mass/Vol]32.9 g/vZLkcwbw80.4 - 36.0 gm/dLFTMC HemeAutoSS MCV (RBC) [Entitic vol]90.3 yOMwjflm98.0 - 100.0 fLFTMC HemeAutoSSPlatelet mean volume (Bld) [Entitic vol]9.1 fLNormal6.4 - 10.8 fLFTMC HemeAutoSSPlatelets (Bld) [#/Vol]183.0 E9/XWdwifi021.0 - 500.0 E9/LFTMC HemeAutoSSRBC (Bld) [#/Vol] 4.3 E12/LNormal4.3 - 5.9 E12/LFTMC HemeAutoSSWBC corrected for nucl RBC Auto (Bld) [#/Vol]6.2 E9/LNormal4.0 - 11.0 E9/LFTMC HemeAutoSSPT & PTTon 07-02-2023 aPTT Coag (PPP) [Time]30.2 second(s)Gaioon09.1-36.5Fisher [facility] Comment on above:Result Comment: Parameter 15 days - 4 weeks 1 - [...] the same coagulation reagent and instrumentation as [facility]. Currently there are no coagulation studies available worldwide for children to 14 days, andno normal ranges. Heparin therapeutic range (represented by Anti-Factor Xa activity of 0.2 - 0.4 U/mL) corresponds to PTT of 56.6 - 109.0 sec.Performed By: #### [id number], 96106291, 6939792, 8365993, 8662280, 2546083 #### [facility]en [facility] [address], [place] [address]DUV Coag (PPP) [Relative time]1.2 {INR}Invalid Interpretation CodeCleveland Clinic Fairview HospitalComment on above:Result Comment: INR results are specifically intended to assess patients stabilized on long-term Anticoagulation therapy suggested INR?s ?Less Intensive Anticoagulation? 2.0 ? 3.0 Conventional Range 3.0 ? 4.5Performed By: #### [id number], 89208139, 7626164, 4895574, 5240729, 8994766 #### [facility] [address], [place] [address]FJ Coag (PPP) [Time]13.2 second(s)High9.4-12.5Fisher [facility] HospitalComment on above:Result Comment: 15 days - 4 weeks 1 - [...] the same coagulation reagent and instrumentation as [facility]. Currently there are no coagulation studies available worldwide for children to 14 days, andno normal ranges.Performed By: #### [id number], 52745298, 7994821, 8310444, 7979792, 0083642 #### [facility] [address], [place] [address]XJ With Cult Reflexon 11-69-4582Adlskpxq LM Ql (Urine sed)TRACE NormalTraceCleveland Clinic Fairview HospitalComment on above:Order Comment: Urinary Catheter Insertion triggered Urinalysis With Culture Reflex order by discern. Performed By: #### [id number], 01744659, 4698689, 6024978, 8686714, 3357269 #### [facility] [address] [place], [place] [address]Gluebgnzu Ql (U)NegativeNormalNegativeCleveland Clinic Fairview HospitalComment on above:Order Comment: Urinary Catheter Insertion triggered Urinalysis With Culture Reflex order by discern.Performed By: #### 4944531, 85070139, 3695375, 8974016, 4383139, 0620158 #### [facility] [address] [place], [place] [address]Opwmelz (U)CLEARNormalClearCleveland Clinic Fairview HospitalComment on above:Order Comment: Urinary Catheter Insertion triggered Urinalysis With Culture Reflex order by discern.Performed By: #### 1318414, 23471209, 5282011, 5249131, 2058462, 1142067 #### [facility] [address], [place] [address]Awdfk (U)YELLOWNormalYellowCleveland Clinic Fairview HospitalComment on above:Order Comment: Urinary Catheter Insertion triggered Urinalysis With Culture Reflex order by discern.Performed By: #### 6939387, 06876039, 0511944, 1327492, 2160195, 5159850 #### [facility] [address] [place], [place] [address]Qxvsghovsb cells.squamous LM.HPF (Urine sed) [#/Area]9-10Normal 0-2Fisher [facility] HospitalComment on above:Order Comment: Urinary Catheter Insertion triggered Urinalysis With Culture Reflex order by discern.Performed By: #### 7566325, 42579723, 9321294, 2415575, 5426566, 6730193 #### [facility] [address] [place], [place] [address]Oyftucp Test strip (U) [Mass/Vol]NegativeNormalNegativeCleveland Clinic Fairview HospitalComment on above:Order Comment: Urinary Catheter Insertion triggered Urinalysis With Culture Reflex order by discern.Performed By: #### 2813223, 53193906, 6122839, 1137122, 2137171, 7157823 #### [facility] [address] [place], [place] [address]Itopwwball Ql (U)TRACEAbSt. Charles HospitalComment on above:Order Comment: Urinary Catheter Insertion triggered Urinalysis With Culture Reflex order by discern.Performed By: #### 1702809, 04409747, 8017164, 5265660, 4282090, 5335061 #### [facility] [address] [place], [place] [address]Hwwgosy (U) [Mass/Vol]TRACEInvalid Interpretation CodeNegative [facility] HospitalComment on above:Order Comment: Urinary Catheter Insertion triggered Urinalysis With Culture Reflex order by discern.Performed By: #### 9871143, 04643543, 0328959, 1183179, 7023720, 4842884 #### [facility] [address] [place], [place] [address]Bcsxpif.plasma/Orion.RBC (Bld) [Mass ratio]5-3Pknlra4-5WwkkclKnox Community HospitalComment on above:Order Comment: Urinary Catheter Insertion triggered Urinalysis With Culture Reflex order by discern.Performed By: #### 5001915, 27095356, 5407639, 4102800, 6189584, 5689551 #### [facility] [address], [place] [address]Pvnub Ql (Urine sed)TRACENormalFisher [facility] Comment on above:Order Comment: Urinary Catheter Insertion triggered Urinalysis With Culture Reflex order by discern.Performed By: #### 1600503, 50865882, 7709855, 5995915, 9273340, 6497374 #### [facility] [address] [place] [address]Sacbgpq Ql (U)NegativeKettering Health – Soin Medical Center Comment on above:Order Comment: Urinary Catheter Insertion triggered Urinalysis With Culture Reflex order by discern.Performed By: #### 0733533, 60296095, 0083938, 8999835, 7716971, 9412157 #### [facility] [address] [place] [address]sZ (U)5.5 [pH]Invalid Interpretation Code5.0-9.0C[facility] HospitalComment on above:Order Comment: Urinary Catheter Insertion triggered Urinalysis With Culture Reflex order by discern.Performed By: #### 3994693, 58154236, 3724180, 0842304, 7064269, 9811402 #### [facility] [address] [place] [address]Tlnvosc (U) [Mass/Vol]NegativermwyNegCleveland Clinic Lutheran HospitalComment on above:Order Comment: Urinary Catheter Insertion triggered Urinalysis With Culture Reflex order by discern.Performed By: #### 1941059, 20872191, 2356508, 0878675, 8638271, 9304359 #### [facility] [address] [place] [address]Oeeriyls gravity (U) [Rel density]1.025Invalid Interpretation Code1.005-1.030C[facility] Fairview HospitalComment on above:Order Comment: Urinary Catheter Insertion triggered Urinalysis With Culture Reflex order by discern.Performed By: #### 1782320, 39646384, 5737455, 2044941, 6868678, 7005945 #### [facility] [address] [place] [address]Beaq of Urine collection methodFoleyNoProMedica Memorial HospitalComment on above:Order Comment: Urinary Catheter Insertion triggered Urinalysis With Culture Reflex order by discern.Performed By: #### 9577380, 75720993, 2679361, 4217678, 8991009, 7280077 #### Farshad [facility] [address] [place] [address]Htjvabufwifj Qn (U)0.2 {Judith'U}/dLNormal0.0-1.0C[facility] HospitalComment on above:Order Comment: Urinary Catheter Insertion triggered Urinalysis With Culture Reflex order by discern.Performed By: #### 2885413, 68038149, 7639156, 6103640, 4520143, 1885383 #### [facility] [address] [place] [address]FTK Auto Ql (U)NegativeNormalNegativeCleveland Clinic Fairview HospitalComment on above:Order Comment: Urinary Catheter Insertion triggered Urinalysis With Culture Reflex order by discern.Performed By: #### 9060367, 24145787, 3916537, 5289243, 0140509, 9063187 #### [facility] [address] [place] [address]TBI LM.HPF (Urine sed) [#/Area]7-2Hsqesq7-6KmsjqmKnox Community HospitalComment on above:Order Comment: Urinary Catheter Insertion triggered Urinalysis With Culture Reflex order by discern.Performed By: #### 4394599, 50360108, 5078456, 6474748, 2235318, 0882408 #### [facility] [address] [place] [address]DZVXQIQTZSCcnpyoz By: Lan Eastman on 45-43-9163Iitmewxb LM Ql (Urine sed)Trace /HPFNormalTrace/HPFCORNERSTONE SPECIALTY [facility] UA Auto SSBilirubin Ql (U)Negative (07/02/23 10:18 PM)NormalNegativeCOR[facility]ST[facility] UA Auto SSClarity (U)Clear (07/02/23 10:18 PM)NormalClearFHILLCREST [facility] Auto SSColor (U)Yellow (07/02/23 10:18 PM)NormalYellowCORNERSTONE [facility] UA Auto SSEpithelial cells.squamous LM.HPF (Urine sed) [#/Area]9-10 /HPFNormal0-2/HPFCORNERSTONE SPECIALTY [facility] UA Auto SSGlucose Test strip (U) [Mass/Vol]Negative (07/02/23 10:18 PM)NormalNegativeCORNERST[facility] UA Auto SSHemoglobin Ql (U)Trace *ABN* (07/02/23 10:18 PM)Invalid Interpretation CodeNegativeCORNERST[facility]A Auto SSKetones (U) [Mass/Vol]Trace *NA* (07/02/23 10:18 PM)Invalid Interpretation CodeNegativeCORNERST[facility] UA Auto SS Orion.plasma/Orion.RBC (Bld) [Mass ratio]0-3 /HPFNormal0-3/HPFCORNERSTONE SPECIALTY [facility] UA Auto SSMucus Ql (Urine sed)Trace (07/02/23 10:18 PM)NormalCORNERSTONE [facility] UA Auto SSNitrite Ql (U)Negative (07/02/23 10:18 PM)NormalNegativeCOR[facility]ST[facility]A Auto SSpH (U)5.5 *NA* (07/02/23 10:18 PM)Invalid Interpretation Code5.0 - 9.0[facility] UA Auto SSProtein (U) [Mass/Vol]Negative (07/02/23 10:18 PM)NormalNegativeCORNERST[facility] UA Auto SSSpecific gravity (U) [Rel density]1.025 *NA* (07/02/23 10:18 PM)Invalid Interpretation Code1.005 - 1.030[facility] UA Auto SSUA Spec DescFoley (07/02/23 10:18 PM)NormalCORNERSTONE [facility] UA Auto SSUrobilinogen Qn (U)0.4794804 {Judith'U}/dLNormal0.0 - 1.0 EU/dLCORNERSTONE SPECIALTY [facility]OS[facility] UA Auto SSWBC Auto Ql (U)Negative (07/02/23 10:18 PM)NormalNegativeCOR[facility]ST[facility]A Auto SSWBC LM.HPF (Urine sed) [#/Area] 0-5 /HPFNormal0-5/HPFCORNERSTONE SPECIALTY [facility] UA Auto SSeGFRon 44-36-8842MAP/1.73 sq M.predicted among non-blacks MDRD (S/P/Bld) [Vol rate/Area]59 mL/min/1.73 g1Jdwwce>=59Fisher [facility]oir Medical CenterComment on above:Order Comment: Order added by Discern Expert.Result Comment: Chronic kidney disease could be indicated at eGFR's of less than 60 mL/min/1.73m2. Kidney failure is indicated at less than 15 mL/min/1.73m2.Performed By: #### [id number], 5437675, 0684366, 5936996, 2053538, 48320142, 0315160 ####[facility] [address] [place], [place] [address]MH Abdomen/Pelvis w/o Contraston 21-26-4727OF Abdomen/Pelvis w/o ContrastExam Date/Time: 06/30/2023 21:18 EST Reason for Exam: [...] Given? No Oral contrast amount in ml's: 0[facility] AndersonDischarge Instructionson 56-80-2421Exbkiefqi Instructions [id number] Medical [facility] [place] Clinical Summaryon [id number] Clinical Summary [place] [id number] ED Clinical Summary Person Information Name: HARJIT ASENCIO I Patricia/[facility] Age: 73 Years : 1950 Sex: Female Language: Tongan PCP: Peggy Nazario MD Marital Status: Visit [...] 00:37:46 07/01/2023 00:37:46 07/01/2023 00:37:46 ADDRESS: [address] [facility] [id number] PHYS DOC NOTES: MEDICAL INFORMATION: Prescriptions Given: New Medications [id number], [address] [place], [place] [id number], [phone] dicyclomine (Bentyl 10 mg Cap) 1 Capsules [...] PATIENT EDUCATION INFORMATION: Instructions: Abdominal Pain, Adult, Iazd-iy-Xaej Follow up: With: Address: When: Peggy Naz[place] [address] Business (1) In 3 days 07/04/2023 Comments: You can use the Bentyl, Zofran every 6 hours as needed for pain and nausea. Please follow-up with your primary care doctor next 2 to 3 days for further evaluation management. Please return to the ED for any new or worsening symptoms. DIAGNOSIS: Abdominal pain, acuteNormalFisher Lenoir Medical CenterED Note-Physicianon 84-53-3290EH Note-PhysicianBasic Information Time Seen: Koby Masterson DO 06/30/2023 [...] and Complexity of Problems Differential Diagnosis: [] [facility] Data External documents reviewed: [] My [...] Bentyl in the ED for pain with improvementof her symptoms. Patient does have anxiety does take Ativan at night is given a dose of her Ativan.Patient CT imaging shows no acute findings. She [...] day(s), # 14 cap(s), Refills(s) 0, Pharmacy: [facility] #[id number], 165, cm, 06/30/23 19:37:00 EST, Height/Length Dosing, [...] q8hr, # 12 tab(s), Refills(s) 0, Pharmacy: [facility]#[id number], 165, cm, 06/30/23 19:37:00 EST, Height/Length Dosing, [...] Peggy Nazario In 3 days 07/04/20[address] [place] [address] [place] [address] Business(1) Additional Instructions: You can use the Bentyl, Zofran every 6 hours as needed for pain and nausea. Please follow-up with your primary care doctor next 2 to 3 days for further evaluation management.Please return to the ED for any new or worsening symptoms. Patient Education Abdominal Pain, Adult, Vdqo-ta-Lusv Problem List/Past Medical History Ongoing acid reflux Acute ga (more content not included)...[facility] AndersonComment on above:Result Comment: Electronically Signed By: Koby Masterson DO\.br\Date and Time Signed: 07/01/23 01:03 SAURAV Patient Education Noteon [id number] Patient Education NoteGastroenterology Abdominal Pain, Adult Many things can cause belly (abdominal) pain. Most times, belly pain is not dangerous. Many cases of belly pain can be watched and treated at home. Sometimes, though, belly pain is serious. Your doctor will try to find the cause of your belly pain. Follow these instructions at home: Medicines ? Take bnql-rdj-orchqib and prescription medicines only as told by [...] belly pain for any changes. ? Take gmps-fse-ytdzapz and prescription medicines only as told by [...] provider. Document Revised: 12/09/2019 Document Reviewed: 12/09/2019 [employer] Patient Education ? 2022 [employer] ED Patient Summaryon [id number] Patient Summary [place] [id number] Patient Discharge Instructions Person Information Name: HARJIT ASENCIO I Age: 73 Years Arrival Date: 06/30/2023 18:48:02 Discharge Diagnosis: Abdominal pain, acute Primary Care Physician: Peggy Nazario MD Provider Information Primary Provider: Koby Masterson DO Advanced Visual Display Manager:None The exam and treatment you received in the Emergency Department were for an urgent problem and are not intended as complete care. It is important that you follow up with a doctor, nurse practitioner,or physician?s digital assistant for ongoing care. If your symptoms [...] Follow-up Instructions: With: Address: When: Peggy Nazario [address] [place] [phone] Business (1) In 3 days 07/04/2023 Comments: [...] provider. Patient Education Materials: Abdominal Pain, Adult, Ljru-gv-Ssjf A MESSAGE TO ALL PATIENTS REGARDING OPIOIDS PRESCRIPTION OPIOIDS: WHAT YOU NEED TO KNOW Prescription opioids can be used to help relieve hpsogjmd-vk-avfvbv pain and are often prescribed following a [...] and have fewer risks and side effects. Optionsmay include: ? Pain relievers such as acetaminophen, [...] unused prescription opioids: Find your community drug take- back program or yourNATION Technologiesrmacy mail-back program, or flush them down the toilet, following guidance from the Food and Drug Administration (www.fda.gov/Drugs/ResourcesForYou). ? Visit www.cdc.gov/drugoverdose to le (more content not included)...Normal [facility] HospitalRAD - Preliminary Cat Scan Reporton [id number] - Preliminary Cat Scan [id number] NormalCleveland Clinic Fairview HospitalAuto Diffon 19-74-0099Hguidklrh/100 WBC (Bld) 0.8 %Normal0.0-2.0[facility] HospitalComment on above:Order Comment: Order Added by Discern Expert.Performed By: #### [id number], 97252842, 0904311, 0653882, 6052900, 4713190 #### [facility] [address] [place] [address]Sfwsgtfii/Leukocytes Auto (Bld) [Pure # fraction]0.0 E9/LNormal 0.0-0.2FKnox Community HospitalComment on above:Order Comment: Order Added by Discern Expert.Performed By: #### 4283661, 35958964, 3687915, 9350191, 9832861, 2719424 #### [facility] [address] [place] [address] 510[address]Pxgkoqpocat/100 WBC (Bld)0.2 %Normal0.0-8.0[facility] HospitalComment on above:Order Comment: Order Added by Discern Expert.Performed By: #### 0232012, 39251797, 0091129, 3437210, 8088051, 4948304 #### [facility] [address] [place] [address] 994[address]Hdyzkazempj/Leukocytes Auto (Bld) [Pure # fraction]0.0 E9/L Normal0.0-0.5FKnox Community HospitalComment on above:Order Comment: Order Added by Discern Expert.Performed By: #### 4294666, 21203100, 5207339, 3930742, 5433214, 3152018 #### [facility] [address] [place] [address] 603[address]Hcuucobsbkw/100 WBC (Bld)26.7 %Cfuwwm58.0-50.0[facility] HospitalComment on above:Order Comment: Order Added by Discern Expert. Performed By: #### 4520850, 37821106, 1574951, 4673693, 0795666, 0974507 #### [facility] [address] [place] [address] 658[address]Xcxuocjflmy/Leukocytes Auto (Bld) [Pure # fraction]1.2 E9/L Normal1.0-4.0[facility] HospitalComment on above:Order Comment: Order Added by Discern Expert.Performed By: #### 8616617, 92675029, 5972965, 0433765, 8485111, 9093585 #### [facility] [address] [place] [address]Jselylveh/100 WBC (Bld)9.8 %Normal4.0-14.0[facility] HospitalComment on above:Order Comment: Order Added by Discern Expert.Performed By: #### 3720385, 25201349, 1777603, 9410769, 9218289, 4178982 #### [facility] [address] [place] [address] 955[address]Snlpjmftd/Leukocytes Auto (Bld) [Pure # fraction]0.4 E9/LNormal 0.2-1.0[facility] HospitalComment on above:Order Comment: Order Added by Discern Expert.Performed By: #### 7045204, 18447641, 6369829, 8521467, 3167205, 0437643 #### [facility] [address] [place] [address]Ixeujuemsja/100 WBC (Bld)62.5 %Mjoktk51.0-75.0[facility] HospitalComment on above:Order Comment: Order Added by Discern Expert. Performed By: #### 6926413, 18229164, 0830911, 7544140, 6581805, 7804305 #### [facility] [address] [place] [address] 24364Gcprbcsokqf/Leukocytes Auto (Bld) [Pure # fraction]2.7 E9/L Normal2.0-7.5FKnox Community HospitalComment on above:Order Comment: Order Added by Discern Expert.Performed By: #### 8096265, 59653287, 1477148, 6465626, 4036475, 7155269 #### [facility] [address] [place], [place] [address]ICSdq 61-88-6945Ihwcknwsed [Mass/Vol]0.8 mg/dLNormal0.5-1.3 [facility] HospitalComment on above:Performed By: #### 8571724, 54117817, 0013270, 5917456, 1678840, 0386829 #### [facility] [address] [place], [place] [address]Bakr nitrogen [Mass/Vol]12 mg/dLNormal5-21[facility] HospitalComment on above:Performed By: #### 3131727, 18844446, 6870412, 2741338, 6925348, 1348839 #### [facility] [facility] [address] [place] [address] 83684Hman nitrogen/Creatinine [Mass ratio]15 No AgnqtHsgngs60-23 [facility] HospitalComment on above:Performed By: #### 8433212, 70059619, 1020200, 5612653, 9149046, 6482912 #### [facility] [address] [place], [place] [address]Qowzp gap [Moles/Vol]13 mmol/LNormal6-16[facility] HospitalComment on above:Performed By: #### 9615439, 29213753, 5729936, 7280492, 8578524, 7401504 #### [facility] [address] [place], [place] [address]Afqcdrr [Mass/Vol]9.5 mg/dLNormal8.9-11.1FKnox Community HospitalComment on above:Performed By: #### 5036449, 33027974, 4243846, 5719888, 4369918, 0668233 #### [facility] [address] [place], [place] [address]Igfbhwcz [Moles/Vol]103 mmol/LVddfik415-992SadchiCleveland Clinic Fairview HospitalComment on above:Performed By: #### 6400795, 92315451, 8527305, 8580897, 7609931, 5681503 #### [facility] [address] [place], [place] [address]RP8 [Moles/Vol]27 mmol/BMxvyvt30-43GvvhffCleveland Clinic [facility] Hospital Comment on above:Performed By: #### 3803451, 51549654, 9331452, 9279067, 0614246, 7179697 #### [facility] [address] [place], [place] [address]Hutiddd [Mass/Vol]110 mg/yVGovrjm06-216OtpawtCleveland Clinic Fairview HospitalComment on above:Result Comment: If this glucose result represents a fasting glucose, interpretation should refer tothe following reference range: 55-99 mg/dLPerformed By: #### 5704940, 01854787, 0657311, 1740756, 5625804, 4787457 #### [facility] [address] [place] [address]Owadqijaq [Moles/Vol]4.1 mmol/LNormal3.5-5.3FKnox Community HospitalComment on above:Performed By: #### 8990569, 44105191, 5080280, 2409379, 3864238, 5825690 #### [facility] [address] [place] [address] 47437Nonfmm [Moles/Vol]139 mmol/QQjvwte678-268EaynrbCleveland Clinic Fairview HospitalComment on above:Performed By: #### 7982135, 77946870, 8657659, 4031669, 0843676, 6681593 #### [facility] [address] [place] [address]CQA w/ Auto Diffon 46-04-3362Zuwhfpaklxd distribution width (RBC) [Ratio]13.7 %Vwwmtn71.9-14.2FKnox Community HospitalComment on above: Performed By: #### 1022682, 29272209, 0310566, 5056245, 0961728, 0396971 #### [facility] [address] [place] [address] 589[address]Rqwwggzicu (Bld) [Volume fraction]38.0 %Zxtwaf32.0-46.0[facility] HospitalComment on above:Performed By: #### 0809004, 80180377, 0181213, 8599678, 1344100, 5402367 #### [facility] [address] [place] [address] 55443Lmdvanxfzj (Bld) [Mass/Vol]12.5 g/wRHejlxx81.0-16.0[facility] HospitalComment on above:Performed By: #### 8472962, 28315420, 5281675, 2801946, 0020106, 7157506 #### [facility] [address] [place] [address] 36636TBY (RBC) [Entitic mass]29.9 lsLroqyb71.0-34.0[facility] HospitalComment on above:Performed By: #### 9065994, 29018817, 4319881, 0426380, 9415188, 0981537 #### [facility] [address] [place] [address] 33054ZVYR (RBC) [Mass/Vol]32.9 g/aGMvlojo43.4-36.0[facility] HospitalComment on above:Performed By: #### 4323529, 34158915, 4391829, 4119992, 9585320, 4312657 #### [facility] [address] [place] [address] 46151ZPD (RBC) [Entitic vol]90.9 bTQlgayy85.0-100.0[facility] HospitalComment on above:Performed By: #### 3579962, 76843238, 5551498, 4394191, 3594390, 7526448 #### [facility] [address] [place] [address] 23174Ududcsdp mean volume (Bld) [Entitic vol]8.7 fLNormal6.4-10.8 [facility] HospitalComment on above:Performed By: #### 5902673, 86808381, 9527041, 6198680, 9373850, 4798760 #### [facility] [address] [place], [place] [address]Txagpknoa (Bld) [#/Vol]184.0 E9/BAufiqd713.0-500.0[facility] HospitalComment on above:Performed By: #### 3211529, 23923424, 6966426, 2659531, 2679960, 7054436 #### [facility] [address] [place], [place] [address]URF (Bld) [#/Vol]4.2 E12/LLow4.3-5.9[facility] Comment on above:Performed By: #### 8464478, 38269562, 8546854, 6863885, 7650035, 8908476 #### [facility] [address] [place], [place] [address]UVC corrected for nucl RBC Auto (Bld) [#/Vol]4.4 E9/LNormal 4.0-11.0[facility] HospitalComment on above:Performed By: #### 2160896, 07398006, 4007645, 4572679, 7568670, 5193562 #### [facility] [address] [place], [place] [address]ASSRATVKOIjzseek By: SYSTEM SYSTEM on 17-52-9870Xxvicxa [Mass/Vol]3.8 g/dLNormal3.3 - 5.0 gm/dLFTMC RemisolAlbumin/Globulin [Mass ratio] 1.3 {ratio}Normal1.1 - 2.2[facility] RemisolALP [Catalytic activity/Vol]56 [iU]/d Ckrnoa17 - 98 Int._Unit/LFTMC RemisolALT No additional P-5'-P [Catalytic activity/Vol]50 [iU]/dHigh6 - 46 Int._Unit/LFTMC RemisolAnion gap [Moles/Vol]13 mmol/LNormal6 - 16 mEq/LFTMC RemisolAST [Catalytic activity/Vol]45 [iU]/dHigh5 - 43 Int._Unit/LFTMC RemisolBilirubin [Mass/Vol]0.5 mg/dLNormal0.0 - 1.1 mg/dL [facility] RemisolBilirubin.direct [Mass/Vol]mg/dLNormal0.1 - 0.4 mg/dLFTMC Remisol Bilirubin.indirect [Mass or moles/Vol]Unable to Calculate mg/dLInvalid Interpretation Code0.1 - 0.9 mg/dLFTMC RemisolCalcium [Mass/Vol]9.5 mg/dLNormal 8.9 - 11.1 mg/dLFTMC RemisolChloride [Moles/Vol]103 mmol/UTemggg498 - 111 mmol/L FT RemisolCO2 [Moles/Vol]27 mmol/KSpmotl16 - 31 mmol/LFTMC RemisolCreatinine [Mass/Vol]0.8 mg/dLNormal0.5 - 1.3 mg/dLFTMC RemisolGFR/1.73 sq M.predicted among non-blacks MDRD (S/P/Bld) [Vol rate/Area]77 mL/min/1.73 n9Cjmdgu >=59mL/min/1.73 m2FT Chem SComment on above:Interpretive Data: Chronic kidney disease could be indicated at eGFR's of less than 60 mL/min/1.73m2. Kidney failure is indicated at less than 15 mL/min/1.73m2.Globulin (S) [Mass/Vol]3.0 g/dLNormal1.4 - 4.0 gm/dLFTMC RemisolGlucose [Mass/Vol]110 mg/zSIorosu47 - 199 mg/dLFTMC RemisolComment on above:Interpretive Data: If this glucose result represents a fasting glucose, interpretation should referto the following reference range: 55-99 mg/dLLipase [Catalytic activity/Vol]31 U/ZZwwboq16 - 58 unit/LFTMC RemisolPotassium [Moles/Vol]4.1 mmol/LNormal3.5 - 5.3 mmol/LFTMC RemisolProtein [Mass/Vol]6.8 g/dLNormal6.0 - 7.8 gm/dLFTMC RemisolSodium [Moles/Vol]139 mmol/SLrrdal030 - 145 mmol/LFTMC RemisolUrea nitrogen [Mass/Vol] 12 mg/dLNormal5 - 21 mg/dLCORNERSTONE [facility] [place] RemisolUrea nitrogen/Creatinine [Mass ratio]15 mg/ixSkmwyc84 - 20FT RemisolConsent for Treatmenton 32-03-0278Pmiuoil for [id number]#1.00TIFRiverview Health InstituteConsent for Treatment [id number]#1.00TIFRiverview Health InstituteHEMATOLOGYOrdered By: SYSTEM SYSTEM on 06-43-0841Bysgpwsue/100 WBC (Bld) 0.8 %Normal0.0 - 2.0 %[facility] HemeAutoSSBasophils/Leukocytes Auto (Bld) [Pure # fraction]0.0 E9/LNormal0.0 - 0.2 E9/LFTMC HemeAutoSSEosinophils/100 WBC (Bld)0.2 %Normal0.0 - 8.0 %[facility] HemeAutoSSEosinophils/Leukocytes Auto (Bld) [Pure # fraction]0.0 E9/LNormal0.0 - 0.5 E9/LFTMC HemeAutoSSLymphocytes/100 WBC (Bld) 26.7 %Dnfspp36.0 - 50.0 %[facility] HemeAutoSSLymphocytes/Leukocytes Auto (Bld) [Pure # fraction]1.2 E9/LNormal1.0 - 4.0 E9/LFTMC HemeAutoSSMonocytes/100 WBC (Bld)9.8 %Normal4.0 - 14.0 %[facility] HemeAutoSSMonocytes/Leukocytes Auto (Bld) [Pure # fraction]0.4 E9/LNormal0.2 - 1.0 E9/LFTMC HemeAutoSSNeutrophils/100 WBC (Bld) 62.5 %Zjlkbf28.0 - 75.0 %[facility] HemeAutoSSNeutrophils/Leukocytes Auto (Bld) [Pure # fraction]2.7 E9/LNormal2.0 - 7.5 E9/LFTMC HemeAutoSSHEMATOLOGYOrdered By: Lan Eastman on 99-81-1465Zetjxigswhd distribution width (RBC) [Ratio]13.7 % Ytjftn39.9 - 14.2 %FT HemeAutoSSHematocrit (Bld) [Volume fraction]38.0 %Normal 34.0 - 46.0 %FT HemeAutoSSHemoglobin (Bld) [Mass/Vol]12.5 g/iCLnsorb89.0 - 16.0 gm/dLFTMC HemeAutoSSMCH (RBC) [Entitic mass]29.9 nzJfrhxb95.0 - 34.0 pgFTMC HemeAutoSSMCHC (RBC) [Mass/Vol]32.9 g/hZZfktqo37.4 - 36.0 gm/dLFT HemeAutoSS MCV (RBC) [Entitic vol]90.9 bAAflsrr14.0 - 100.0 fLFT HemeAutoSSPlatelet mean volume (Bld) [Entitic vol]8.7 fLNormal6.4 - 10.8 fLFT HemeAutoSSPlatelets (Bld) [#/Vol]184.0 E9/UCeavlt925.0 - 500.0 E9/LFH[facility] [place] HemeAutoSSRBC (Bld) [#/Vol] 4.2 E12/LLow4.3 - 5.9 E12/LFC HemeAutoSSWBC corrected for nucl RBC Auto (Bld) [#/Vol]4.4 E9/LNormal4.0 - 11.0 E9/LFHILLCRE[facility] [place] HemeAutoSSHep Func Panelon 06-30-2023 Bilirubin.indirect [Mass or moles/Vol]UTCAbnormal0.1-0.9[facility] HospitalComment on above:Result Comment: Result verified by Discern Rule. Performed result UTC (Unable to Calculate) was sent as an Alpha code due the inability to calculate a valid numeric value.Performed By: #### 4522314, 39711211, 3542332, 6377580, 4905510, 4976647 #### [facility] [address] [place], [place] [address]Ccyofhz [Mass/Vol]3.8 g/dLNormal3.3-5.0[facility] HospitalComment on above:Performed By: #### 6786302, 53879227, 4584794, 2669305, 6027376, 7233839 #### [facility] [address] [place] [address] 29770Lmrphcw/Globulin (S) [Mass conc ratio]1.8Qassnd3.1-2.2FKnox Community HospitalComment on above:Performed By: #### 9155303, 88011522, 5804751, 3264962, 3852099, 7090299 #### [facility] [address] [place] [address] 55839RKH [Catalytic activity/Vol]56 Int._Unit/SRvndot08-37EawgkfCleveland Clinic [facility]view HospitalComment on above:Performed By: #### 0508874, 57605294, 4745163, 3552296, 6910175, 7578811 #### [facility] [address] [place] [address] 24548NLX No additional P-5'-P [Catalytic activity/Vol]50 Int._Unit/L High6-46[facility] HospitalComment on above:Performed By: #### 5130302, 53163086, 0363952, 1954943, 1712150, 4961169 #### [facility] [address] [place] [address] 71474LMK [Catalytic activity/Vol]45 Int._Unit/LHigh5-43[facility] HospitalComment on above:Performed By: #### 7690436, 98178785, 6109853, 8194653, 3357587, 5146113 #### [facility] [address] [place] [address] 21354Sxypuwijj [Mass/Vol]0.5 mg/dLNormal0.0-1.1FKnox Community HospitalComment on above:Performed By: #### 8249496, 72953691, 7109411, 5331736, 8684204, 3076433 #### [facility] [address] [place] [address] 599[address]Jvtmzwno (S) [Mass/Vol]3.0 g/dLNormal1.4-4.0[facility] HospitalComment on above:Performed By: #### 5621362, 54718168, 9793313, 6265942, 3316892, 2123302 #### [facility] [address] [place], [place] [address]Borayew [Mass/Vol]6.8 g/dLNormal6.0-7.8[facility] HospitalComment on above:Performed By: #### 4660388, 98429182, 4933003, 0926671, 7366820, 2204604 #### [facility] [address] [place] [address] 496[address]Ocxvxjonx.direct [Mass/Vol]mg/dLNormal0.1-0.4FKnox Community HospitalComment on above:Performed By: #### 8429919, 13612088, 0107890, 6867999, 7210558, 2131516 #### [facility] [address] [place] [address] 40062Wnzomj Levelon 34-50-0396Vpkenh [Catalytic activity/Vol]31 U/L Sklosc12-64DkhwyrCleveland Clinic Fairview HospitalComment on above:Performed By: #### 5727361, 04355040, 1097272, 3279491, 9145658, 2995987 #### [facility] [address] [place] [address] 27424QH With Cult Reflexon 72-44-8315Igjiwugf LM Ql (Urine sed)TRACE NormalTraceCleveland Clinic Fairview HospitalComment on above:Performed By: #### 2222255, 20687668, 3584829, 1696368, 9421046, 9977097 #### [facility] [address] [place] [address] 75628Srchmdgar Ql (U)NegativeNormalNegativeCleveland Clinic Fairview HospitalComment on above:Performed By: #### 2272831, 60607179, 1475484, 5497414, 8951810, 7762968 #### [facility] [address] [place], [place] [address]Bhnpbda (U)CLEARNormalClearFormerly [facility] Hospitaler [facility] Pr[facility] HospitalComment on above:Performed By: #### 3961425, 28620516, 2856339, 9386341, 5078006, 0656514 #### Yen [facility] [address] [place], [place] [address]Lgdqr (U)YELLOWNormalYellowFormerly V[facility] Hospitaler [facility] HospitalComment on above:Performed By: #### 0823415, 78666119, 1186167, 8267017, 4564511, 0235610 #### [facility] [address] [place] [address] 74084Ypasjnodht cells.squamous LM.HPF (Urine sed) [#/Area]0-2Normal 0-2Fisher [facility] Pr[facility] HospitalComment on above:Performed By: #### 5581225, 36000163, 8506214, 6306566, 3450142, 8537130 #### [facility] [address] [place] [address] 75096Hmvzxmb Test strip (U) [Mass/Vol]NegativeNormalNegativeCleveland Clinic Fairview HospitalComment on above:Performed By: #### 8467235, 63678828, 9908973, 7274528, 4708546, 7713946 #### [facility] [address] [place] [address] 50628Vvunadsgyj Ql (U)TRACEAbnormalNegativeCleveland Clinic Fairview HospitalComment on above:Performed By: #### 4193239, 79524417, 6468738, 8288263, 4813330, 4911882 #### [facility] [address] [place] [address] 35935Hvzghxg (U) [Mass/Vol]NegativeNormalNegativeCleveland Clinic Fairview HospitalComment on above:Performed By: #### 0199493, 72985517, 8060155, 5570599, 2832306, 7211731 #### [facility] [address] [place] [address] 54704Zfxjnyu.plasma/Orion.RBC (Bld) [Mass ratio]6-1Euader7-6Rnjnao [facility] Pr[facility] HospitalComment on above:Performed By: #### 4706078, 60417439, 8730499, 6209010, 0838223, 5244405 #### [facility] [address] [place], [place] [address]Hdygdcw Ql (U)NegativeNormalNegC[facility] Clinic [facility] Comment on above:Performed By: #### 6717975, 50747899, 6680835, 5545093, 5180963, 7861225 #### [facility] [address] [place] [address] 16212eX (U)6.5 [pH]Invalid Interpretation Code5.0-9.0[facility] HospitalComment on above:Performed By: #### 5099994, 95895109, 4906827, 4894192, 4631430, 3451117 #### [facility] [address] [place] [address] 91762Njqwami (U) [Mass/Vol]NegativeNormalNegativeCleveland Clinic [facility]view HospitalComment on above:Performed By: #### 3448196, 36724620, 6352089, 0084751, 1874863, 2486242 #### [facility] [address] [place] [address] 02723Gkzblazr gravity (U) [Rel density]<=1.005Invalid Interpretation Code1.005-1.030[facility] HospitalComment on above:Performed By: #### 5475907, 45984103, 1672296, 9345770, 0521100, 6190684 #### [facility] [address] [place] [address] 770[address]Agsk of Urine collection methodClean CatchNoProMedica Memorial HospitalComment on above:Performed By: #### 7077036, 42991783, 4170480, 9609012, 6758791, 9398352 #### [facility] [address] [place] [address] 96084Hgxmdsfjbous Qn (U)0.2 {Judith'U}/dLNormal0.0-1.0Formerly [facility] Hospitaler [facility] HospitalComment on above:Performed By: #### 8264822, 83444647, 5633602, 2574764, 4566813, 7847100 #### Farshad [facility] [address] [place], [place] [address]JVK Auto Ql (U)NegativeNormalNegativeCleveland Clinic Fairview HospitalComment on above:Performed By: #### 6887377, 13990264, 1558262, 4206922, 5289353, 6925663 #### Farshad [facility] [address] [place], [place] [address]RDX LM.HPF (Urine sed) [#/Area]1-3Aakvpy3-4Bfnkdn [facility] HospitalComment on above:Performed By: #### 2923066, 95884709, 2633837, 6891259, 3573131, 0546994 #### Yen [facility] [address] [place], [place] [address]BMSQKLBBOBCyjpyan By: Carol Davis on 04-70-8207Kxgknjla LM Ql (Urine sed)Trace /HPFNormalTrace/HPFCORNERSTONE [facility]TY [facility] [place] UA Auto SSBilirubin Ql (U)Negative (06/30/23 8:00 PM)NormalNegativeCORNERSTONE [facility] [place] UA Auto SSClarity (U)Clear (06/30/23 8:00 PM)NormalClearFHILLCREST [facility] [place] UA Auto SSColor (U)Yellow (06/30/23 8:00 PM)NormalYellowCORNERSTONE SPECIALTY [facility]OS[facility] [place] UA Auto SSEpithelial cells.squamous LM.HPF (Urine sed) [#/Area]0-2 /HPFNormal0-2/HPFFT UA Auto SSGlucose Test strip (U) [Mass/Vol]Negative (06/30/23 8:00 PM)NormalNegativeCORNERSTONE [facility] UA Auto SSHemoglobin Ql (U)Trace *ABN* (06/30/23 8:00 PM)Invalid Interpretation CodeNegativeCORNERSTONE [facility] [place] UA Auto SSKetones (U) [Mass/Vol]Negative (06/30/23 8:00 PM)NormalNegativeCORNERSTONE [facility] [place] UA Auto SSLithium.plasma/Orion.RBC (Bld) [Mass ratio]0-3 /HPFNormal0-3/HPFCORNERSTONE SPECIALTY [facility]OS[facility] [place] UA Auto SSNitrite Ql (U)Negative (06/30/23 8:00 PM)NormalNegativeCORNERSTONE [facility] UA Auto SSpH (U)6.5 *NA* (06/30/23 8:00 PM)Invalid Interpretation Code5.0 - 9.0[facility] UA Auto SSProtein (U) [Mass/Vol]Negative (06/30/23 8:00 PM)NormalNegativeCORNERSTONE [facility] UA Auto SSSpecific gravity (U) [Rel density]<=1.005 *NA* (06/30/23 8:00 PM)Invalid Interpretation Code1.005 - 1.030[facility] UA Auto SSUA Spec DescClean Catch (06/30/23 8:00 PM)NormalCORNERSTONE SPECIALTY [facility]OS[facility] UA Auto SSUrobilinogen Qn (U)0.6724270 {Judith'U}/dLNormal0.0 - 1.0 EU/dLCORNERSTONE SPECIALTY [facility]OS[facility] [place] UA Auto SSWBC Auto Ql (U)Negative (06/30/23 8:00 PM)NormalNegativeCORNERSTONE [facility] UA Auto SSWBC LM.HPF (Urine sed) [#/Area]0- 5 /HPFNormal0-5/HPFCORNERSTONE SPECIALTY [facility]OS[facility] [place] UA Auto SSeGFRon 49-03-1971XEY/1.73 sq M.predicted among non-blacks MDRD (S/P/Bld) [Vol rate/Area]77 mL/min/1.73 n6Ugwval>=59FishSinai Hospital of BaltimoreComment on above:Order Comment: Order added by Discern Expert.Result Comment: Chronic kidney disease could be indicated at eGFR's of less than 60 mL/min/1.73m2. Kidney failure is indicated at less than 15 mL/min/1.73m2.Performed By: #### 3406988, 63112653, 1874834, 9588214, 0507171, 4258336 #### [facility]ad [facility] [address] [place] [address] 90272ZWFDPATSRSUiztuuy By: Lan Eastman on 94-63-3978Uxteylsjw Ql (U)Negative (01/28/23 11:04 PM)NormalNegativeCOR[facility]ST[facility] UA Auto SSClarity (U)Clear (01/28/23 11:04 PM)NormalClearFHILLCREST [facility] [place] UA Auto SSColor (U)Yellow (01/28/23 11:04 PM)NormalYellowCORNERSTONE [facility]TY [facility] UA Auto SSEpithelial cells.squamous LM.HPF (Urine sed) [#/Area]3-4 /HPFNormal0-2/HPFCORNERSTONE SPECIALTY [facility]OS[facility] [place] UA Auto SSGlucose Test strip (U) [Mass/Vol]Negative (01/28/23 11:04 PM)NormalNegativeCORNERSTONE [facility] UA Auto SSHemoglobin Ql (U)1+ *ABN* (01/28/23 11:04 PM)Invalid Interpretation CodeNegativeCORNERSTONE [facility] [place] UA Auto SSKetones (U) [Mass/Vol]Negative (01/28/23 11:04 PM)NormalNegativeCORNERSTONE [facility] UA Auto SSLithium.plasma/Orion.RBC (Bld) [Mass ratio]0-3 /HPFNormal0-3/HPFCORNERSTONE SPECIALTY [facility]OS[facility] [place] UA Auto SSNitrite Ql (U)Negative (01/28/23 11:04 PM)NormalNegativeCOR[facility]ST[facility]A Auto SSpH (U)6.0 *NA* (01/28/23 11:04 PM)Invalid Interpretation Code5.0 - 9.0[facility] UA Auto SSProtein (U) [Mass/Vol]Negative (01/28/23 11:04 PM)NormalNegativeCORNERSTONE [facility] UA Auto SSSpecific gravity (U) [Rel density]1.025 *NA* (01/28/23 11:04 PM)Invalid Interpretation Code1.005 - 1.030[facility] UA Auto SSUA Spec DescClean Catch (01/28/23 11:04 PM)NormalCORNERSTONE SPECIALTY [facility]OS[facility] [place] UA Auto SSUrobilinogen Qn (U)1.5032226 {Judith'U}/dLNormal0.0 - 1.0 EU/dLCORNERSTONE SPECIALTY [facility]OS[facility] [place] UA Auto SSWBC Auto Ql (U)Negative (01/28/23 11:04 PM)NormalNegativeCORNERSTONE [facility] [place]A Auto SSWBC LM.HPF (Urine sed) [#/Area]0- 5 /HPFNormal0-5/HPFCORNERSTONE [facility]TY [facility] [place] UA Auto SSQ - SARS CoV2 COVID 19 Ab IgGon 08-20-2021 SARS-CoV-2 (COVID-19) Ab IA Qn25.84 indexHigh<1.00[facility] SpecialistComment on above:Order Comment: [facility] Testing performed at: [employer], [address], [address] [place], [place], [address], Camera Repairer: Ab Vnicent MD [facility] Collection Date/Time: [facility] Results Received Date/Time: [facility] Reported Date/Time: [id number] Comment: This test is intended to help [...] providers and patients using the following websites: [email or web address] Healthcare Providers: For additional information please refer to: http://education.[employer].Dime/faq/KJG595 (This link is being provided for informational/educational purposes only.) This test has been authorized by the FDA under an Emergency Use Authorization (EUA) for use by authorized laboratories. The FDA authorized labeling is available on the [employer] website: www.[facility].Dime/Covid19.Performed By: #### [id number] #### [facility] Default [address] [place], [place] [address]Huhwyzjfl Laboratory TestingOrdered By: Generated DomainUser on 43-73-8592ZBLS-CoV-2 (COVID-19) RNA JORDAN+probe Ql (Resp)Not detectedInvalid Interpretation CodeNot DetectedCORNERSTONE SPECIALTY [facility] SendOutsSSComment on above:Result Comment: This nucleic acid amplification test was developed and its performance characteristics determined by [employer]. Nucleic acid amplification tests include RT-PCR and [...] detected) result in this assay. Performed at: [address] [id number] PhD Emily Fraser Vital Signs Date TimeVital SignValuePerforming UqtqproraVhwxpbsy77-92-4629 11:36-0400Body glwvab250 cmHannah Brian MD Work Phone: [phone] HospitalPkrvmdcpnh79-88-0983 11:36-0400Body mass index (BMI) [Ratio]23.03 kg/k5VudpcHannah Brian MD Work Phone: [phone] HospitalXhqvfozwrk74-64-4553 11:36-0400Body temperature 98.2 [degF]Hannah Brian MD Work Phone: [phone] HospitalDksfjrdnti02-30-1071 11:36-0400Body xlasxb74.97 kgHannah Brian MD Work Phone: [phone] HospitalChtygtbyhb77-54-7825 11:36-0400Diastolic blood edrkookm73 mm[Hg]Hannah Brian MD Work Phone: [phone] HospitalVonqrjoyhe84-97-4584 11:36-0400Heart rate72 /min Hannah Brian MD Work Phone: [phone] [place], [place] 4803210-01-2025 11:36-0352ImH4% (BldA) [Mass fraction]97 %Hannah Brian MD Work Phone: [facility] HospitalBfmjlghagk81-51-7645 11:36-0400Systolic blood mm[Hg]Hannah Brian MD Work Phone: [facility] HospitalJnthildexy31-35-4925 14:26-0400Body lapgea460 cm Hannah Brian MD Work Phone: [phone]09-25-2025 14:26-0400Body mass index (BMI) [Ratio]23.17 kg/g5VlgmuHannah Brian MD Work Phone: [facility] HospitalPcoirsxdtt47-54-6980 14:26-0400Body temperature 98.29 [degF]Hannah Brian MD Work Phone: [facility] HospitalYmdimplbrl84-07-2871 14:26-0400Body ekroye78.33 kgHannah Brian MD Work Phone: 1(329)[address]09-25-2025 14:26-0400Diastolic blood knzocxrt70 mm[Hg]Hannah Brian MD Work Phone: [facility] HospitalMjmhevyfgq31-24-2659 14:26-0400Heart rate71 /min Hannah Brian MD Work Phone: [facility] HospitalPnxhbdrsuc70-60-9272 14:26-2244ZrY7% (BldA) [Mass fraction]98 %Hannah Brian MD Work Phone: [facility] HospitalBmieylhmtz17-17-9154 14:26-0400Systolic blood wqlkiykf561 mm[Hg]Hannah Brian MD Work Phone: 1(685)[facility]6014[facility] HospitalMdcnywjpja87-57-6633 15:21-0400Body cm Hannah Brian MD Work Phone: [facility] HospitalIuzxnfptmr59-25-1224 15:21-0400Body mass index (BMI) [Ratio]23.13 kg/w8YpesdHannah Brian MD Work Phone: 1([phone])192-[address] [place], [place] [address]Wwemxhuutz56-29-1770 15:21-0400Body temperature 97.81 [degF]Hannah Brian MD Work Phone: 1(175)784-[address] [place], [place] [address]Imkvxgjijs37-03-9506 15:21-0400Body jebrje36.24 kgHannah Brian MD Work Phone: [facility] HospitalVheawsfwci52-73-0959 15:21-0400Diastolic blood ptajlodp27 mm[Hg]Hannah Brian MD Work Phone: [place] [address]Qyazmqihbv81-05-7825 15:21-0400Heart rate71 /min Hannah Brian MD Work Phone: [place] [address]Clkisdjrkv09-63-8172 15:21-7305RcM7% (BldA) [Mass fraction]97 %Hannah Brian MD Work Phone: [place] [address]Smrugpejfc07-11-2770 15:21-0400Systolic blood oqalcnva418 mm[Hg]Hannah Brian MD Work Phone: [facility] HospitalWrxzsvyvxc52-66-2786 13:46-0400Body wmzirw901 cm Hannah Brian MD Work Phone: [facility] HospitalQnglrrkvrd61-34-5882 13:46-0400Body mass index (BMI) [Ratio]23.6 kg/q7BrkjjHannah Brian MD Work Phone: [facility] HospitalHmxqbmxgop95-04-7230 13:46-0400Body temperature 98.2 [degF]Hannah Brian MD Work Phone: [facility] HospitalTuwfqlvmsz75-91-1998 13:46-0400Body qouwwo54.42 kgHannah Brian MD Work Phone: [facility] HospitalWfkkynjjcl46-48-7932 13:46-0400Diastolic blood ctesjseg83 mm[Hg]Hannah Brian MD Work Phone: [facility] HospitalAhtkqmdzfg75-26-5002 13:46-0400Heart rate68 /min Hannah Brian MD Work Phone: [facility] HospitalYtipmlvkbc90-62-1125 13:46-1361DyR3% (BldA) [Mass fraction]99 %Hannah Brian MD Work Phone: [facility] HospitalApwcglermx42-69-2902 13:46-0400Systolic blood mzimtcsh700 mm[Hg]Hannah Brian MD Work Phone: [facility] HospitalRgzwnuberp77-56-5046 13:56-0400Body ocafvd760 cm Hannah Brian MD Work Phone: [facility] HospitalOetgvbnnri59-69-9926 13:56-0400Body mass index (BMI) [Ratio]23.91 kg/n3LzgsnHannah Brian MD Work Phone: [facility] HospitalNhkxxgqbsa76-69-2968 13:56-0400Body temperature 98.01 [degF]Hannah Brian MD Work Phone: [facility] HospitalQwhckpiwoy52-71-7436 13:56-0400Body ezxhnw45.24 kgHannah Brian MD Work Phone: [facility] HospitalAnfjyvjois06-28-8490 13:56-0400Diastolic blood mohvurpd84 mm[Hg]Hannah Brian MD Work Phone: [facility] HospitalDanftoxsrf49-16-6954 13:56-0400Heart rate70 /min Hannah Brian MD Work Phone: [facility] HospitalGcaffkvolf37-77-6229 13:56-8425IpZ1% (BldA) [Mass fraction]99 %Hannah Brian MD Work Phone: [facility] HospitalUdcqmzalju32-67-1089 13:56-0400Systolic blood jkroxffz039 mm[Hg]Hannah Brian MD Work Phone: [facility] HospitalFcoqloqyez53-79-6635 15:47-0400Body suqtyz687 cm Hannah Brian MD Work Phone: [facility] HospitalCqchpjksqj71-31-9206 15:47-0400Body mass index (BMI) [Ratio]23.95 kg/d3GsrmmHannah Brian MD Work Phone: [facility] HospitalNhuutbbnxj66-59-1214 15:47-0400Body temperature 97.9 [degF]Hannah Brian MD Work Phone: [facility] HospitalUeyfqlcbms99-34-7546 15:47-0400Body oexykf27.33 kgaHnnah Brian MD Work Phone: [facility] HospitalJiebxubnuo24-38-4855 15:47-0400Diastolic blood uahsqidh29 mm[Hg]Hannah Brian MD Work Phone: [facility] HospitalQgfkquwxix92-29-1263 15:47-0400Heart rate70 /min Hannah Brian MD Work Phone: [facility] HospitalKyauxhvauq01-92-1202 15:47-0346ZgG9% (BldA) [Mass fraction]97 %Hannah Brian MD Work Phone: [facility] HospitalOfpkwrdlxb21-47-7278 15:47-0400Systolic blood cugfvmzd271 mm[Hg]Hannah Brian MD Work Phone: [facility] HospitalXsmgzgbopo26-01-0372 15:23-0400Body ercniy355 cm Hannah Brian MD Work Phone: [facility] HospitalVozjlavmrx39-84-1472 15:23-0400Body mass index (BMI) [Ratio]24.09 kg/a0NundrHannah Brian MD Work Phone: [facility] HospitalOuwgjehszb92-03-2100 15:23-0400Body temperature 97.5 [degF]Hannah Brian MD Work Phone: [facility] HospitalYmgajujnaw80-13-7528 15:23-0400Body huciwr40.69 kgHannah Brian MD Work Phone: [facility] HospitalLppelcqoaq52-56-9725 15:23-0400Diastolic blood mm[Hg]Hannah Brian MD Work Phone: [facility] HospitalSzmjtnkwoo38-03-3177 15:23-0400Heart rate74 /min Hannah Brian MD Work Phone: [facility] HospitalIkgywiutkw04-99-0891 15:23-9923WiK8% (BldA) [Mass fraction]99 %Hannah Brian MD Work Phone: [facility] HospitalJubfldyuaf48-90-9962 15:23-0400Systolic blood ijgioewn604 mm[Hg]Hannah Brian MD Work Phone: [facility] HospitalNmbbrqzkcs83-42-1026 11:32-0400Body jiiats847 cm Hannah Brian MD Work Phone: [facility] HospitalUaxgjymvpn58-39-9195 11:32-0400Body mass index (BMI) [Ratio]24.45 kg/s2HsfxhHannah Brian MD Work Phone: [facility] HospitalGxqazpjopk70-68-6324 11:32-0400Body temperature 97.81 [degF]Hannah Brian MD Work Phone: [facility] HospitalWhmekforrq04-53-0409 11:32-0400Body asgtct95.6 kg Hannah Brian MD Work Phone: [facility] HospitalXbxyrlgitb49-61-7353 11:32-0400Diastolic blood baibydcu39 mm[Hg]Hannah Brian MD Work Phone: [facility] HospitalCrzdaruasw72-14-2098 11:32-0400Heart rate75 /min Hannah Brian MD Work Phone: [facility] HospitalBzufnqfreq02-75-5606 11:32-3697BuD1% (BldA) [Mass fraction]96 %Hannah Brian MD Work Phone: [facility] HospitalEzzevfclys11-61-9893 11:32-0400Systolic blood awitvhww683 mm[Hg]Hannah Brian MD Work Phone: [facility] HospitalZoozvuaylv52-34-3008 11:43-0400Body cm Hannah Brian MD Work Phone: [facility] HospitalPzwepifida83-71-0147 11:43-0400Body mass index (BMI) [Ratio]23.91 kg/m7PpxzrHannah Brian MD Work Phone: [facility] HospitalGccetjjxjb46-76-4017 11:43-0400Body temperature 97.81 [degF]Hannah Brian MD Work Phone: [facility] HospitalTndtmstaph19-06-1347 11:43-0400Body .24 kgHannah Brian MD Work Phone: [facility] HospitalVhoruocanm72-48-6266 11:43-0400Diastolic blood fepjwgtw66 mm[Hg]Hannah Brian MD Work Phone: [facility] HospitalUtimizwvzw58-34-6850 11:43-0400Heart rate70 /min Hannah Brian MD Work Phone: [facility] HospitalZizvzviswm45-83-8490 11:43-9441WlA0% (BldA) [Mass fraction]98 %Hannah Brian MD Work Phone: [facility] HospitalTdjfmaskpn96-05-6774 11:43-0400Systolic blood rempglja823 mm[Hg]Hannah Brian MD Work Phone: [facility] HospitalTsvtgtqcad43-60-3570 12:58-0500Body monvxe381 cm Sherlyn Meraz PA Work Phone: [facility] HospitalFxdmofbmlf47-16-9026 12:58-0500Body mass index (BMI) [Ratio]23.91 kg/g6YlzcselSherlyn Meraz PA Work Phone: [facility] HospitalYnhnecykek79-00-2710 12:58-0500Body temperature 97.9 [degF]Sherlyn Meraz PA Work Phone: [facility] HospitalFtkjhfzttz38-15-5084 12:58-0500Body enosht66.24 kgSherlyn Meraz PA Work Phone: [facility] HospitalOgkyfxeelb98-25-5863 12:58-0500Diastolic blood mmtxnzzo92 mm[Hg]Sherlyn Meraz PA Work Phone: [facility] HospitalTqecqjklwe54-46-0109 12:58-0500Heart rate70 /min Sherlyn Meraz PA Work Phone: [facility] HospitalFiwfzttaky88-21-1690 12:58-6761XtX6% (BldA) [Mass fraction]97 %Sherlyn Meraz PA Work Phone: [facility] HospitalRdkclhgjfb80-68-7673 12:58-0500Systolic blood oceqcfyw739 mm[Hg]Sherlyn Meraz PA Work Phone: [facility] HospitalPjdpeuwfgu61-20-7615 16:09-0500Body ovruvb475.3 cmRickie Aviles COIL MACHINE SUPERVISOR Work Phone: [facility] HospitalByfqlkiwvf75-59-8166 16:09-0500Body mass index (BMI) [Ratio]22.39 kg/l0RxjjeslRickie Aviles COIL MACHINE SUPERVISOR Work Phone: [facility] HospitalBnzzbfluhr83-38-7789 16:09-0500Body temperature 97.7 [degF]Rickie Aviles COIL MACHINE SUPERVISOR Work Phone: [facility] HospitalCrzlsbicfp95-18-1383 16:09-0500Body kzzong33.24 kgRickie Aviles COIL MACHINE SUPERVISOR Work Phone: [facility] HospitalFiazdhpypz96-46-7914 16:09-0500Diastolic blood ymdgaxui23 mm[Hg]Rickie Pierrer COIL MACHINE SUPERVISOR Work Phone: [facility] HospitalPqhoqnuhfl15-46-8296 16:09-0500Heart rate73 /min Rickie Pierrer COIL MACHINE SUPERVISOR Work Phone: [facility] HospitalEeyukckcrx25-26-6854 16:09-5927LlO7% (BldA) [Mass fraction]99 %Rickie Pierrer COIL MACHINE SUPERVISOR Work Phone: [facility] HospitalVeqyakqsfi99-09-2185 16:09-0500Systolic blood sbseipmm792 mm[Hg]Rickie Pierrer COIL MACHINE SUPERVISOR Work Phone: [facility] HospitalOoctsfocjx73-79-2027 15:19-0500Body ucwdkf305.3 cmDionterajiv Boo DO Work Phone: [facility] HospitalKlgxokkqxn08-92-8692 15:19-0500Body mass index (BMI) [Ratio]21.8 kg/a3Vpccbtarajiv Boo DO Work Phone: [facility] HospitalAnxffskizx37-36-5756 15:19-0500Body lbecwr17.7 kg Stephan Boo DO Work Phone: [facility] HospitalYwxtsiyotl20-74-6169 15:19-0500Diastolic blood ylkwkbcg88 mm[Hg]Stephan Boo DO Work Phone: [place] [address]Stfomnvhjj34-66-0125 15:19-0500Systolic blood fejfvubu682 mm[Hg]Stephan Boo DO Work Phone: [place] [address]Lcqbdigzou86-07-1371 15:35-0500Body dscrdi773.1 cmSherlyn Meraz PA Work Phone: [facility] HospitalQwzchhjhgm26-16-0859 15:35-0500Body mass index (BMI) [Ratio]20.93 kg/s7RxyeayySherlyn ABRAMS Work Phone: [place] [address]Biahljuwug74-69-5313 15:35-0500Body temperature 97.7 [degF]Sherlyn Meraz PA Work Phone: [place] [address]Hauyfjmhmy15-19-4897 15:35-0500Body .06 kgLupeizabel Kt PA Work Phone: [place] [address]Dopkbfdawg02-37-7725 15:35-0500Diastolic blood mm[Hg]Sherlyn Meraz PA Work Phone: [place] [address]Fufwupdaai88-33-7177 15:35-0500Heart rate86 /min Sherlyn Meraz PA Work Phone: [place] [address]Migylwduga40-73-7428 15:35-2907XfA9% (BldA) [Mass fraction]98 %Sherlyn Meraz PA Work Phone: [place] [address]Vvygydeuwy75-54-1514 15:35-0500Systolic blood odgxyuzy938 mm[Hg]Sherlyn Meraz PA Work Phone: [place] [address]Baghfonvlt35-52-7689 11:13-0500Body mass index (BMI) [Ratio]19.97 kg/r7JhjsesRaphael Goldsmith MD Work Phone: 1()533-4174[place] Okegqv61-73-3726 11:13-0500Body temperature 96.6 [degF]Raphael Goldsmith MD Work Phone: 1()349-6856[place] Lweqiv24-56-8679 11:13-0500Body ildhvo00.43 kgRaphael Goldsmith MD Work Phone: [place] Pmhqbw22-24-7297 11:13-0500Diastolic blood ycpsqbns14 mm[Hg]Raphael Goldsmith MD Work Phone: [place] Ytrdrp56-23-9495 11:13-0500Heart rate83 /min Raphael Goldsmith MD Work Phone: [place] Hnwkdq80-45-2780 11:13-0500Systolic blood ujhokivr340 mm[Hg]Raphael Goldsmith MD Work Phone: [facility]Njxuvz29-26-3494 20:52-0400Body temperature 97.7 [degF]Jayson Calloway [address] [place], [place] 3974304-10-2024 20:52-0400 Diastolic blood rvictsgt39 mm[Hg]Jayson Calloway [address]04-10-2024 20:52-0400Heart rate60 /minJayson Calloway [address] [place], [place] 3974304-10-2024 20:52-0400 Respiratory rate17 /minAbranvin Brodie [address] [place], [place] 3974304-10-2024 20:52-1999NzB3% (BldA) [Mass fraction]100 %Jayson Calloway [address] [place], [place] 3974304-10-2024 20:52-0400 Systolic blood kupujacu025 mm[Hg]Jayson Calloway [address]04-10-2024 18:32-0400Heart rate87 /minJayson Calloway [address] [place], [place] 3974304-10-2024 18:32-0400 Respiratory rate18 /minJayson Calloway [address] [place], [place] 3974304-10-2024 18:32-2877BiZ8% (BldA) [Mass fraction]98 %Jayson Calloway [address] [place], [place] 3974304-10-2024 17:50-0400 Diastolic blood lhxiqoll84 mm[Hg]Jayson Calloway [address] [place], [place] 3974304-10-2024 17:50-0400Heart rate68 /minJayson Calloway [address] [place], [place] 3974304-10-2024 17:50-0400 Respiratory rate18 /minAbranvin Brodie [address] [place], [place] 3974304-10-2024 17:50-2317JhE6% (BldA) [Mass fraction]98 %Jaysonapril Calloway [address] [place], [place] 3513504-10-2024 17:50-0400 Systolic blood ypjqlffv373 mm[Hg]Jayson Brodie [address] [place], [place] 3513504-10-2024 16:24-0400Body .8 [degF]Jayson Brodie [address] [place], [place] 3513504-10-2024 16:24-0400 Diastolic blood pzieacpi72 mm[Hg]Jaysonapril Calloway [address] [place], [place] 3513504-10-2024 16:24-0400 Systolic blood metdwdro875 mm[Hg]Jayson Brodie [address] [place], [place] 3513502-22-2024 21:54-0500 Diastolic blood bvwyqqvt91 mm[Hg]Kaylinn Dokken [address] [place], [place] 3513502-22-2024 21:54-0500Heart rate75 /minKaylinn Dokken [address] [place], [place] 3513502-22-2024 21:54-0500 Respiratory rate19 /minKaylinn Dokken [address] [place], [place] 3513502-22-2024 21:54-9257IeZ6% (BldA) [Mass fraction]100 %Kaylinn Dokken [address] [place], [place] 3513502-22-2024 21:54-0500 Systolic blood lgjfiulf219 mm[Hg]Kaylinn Dokken [address] [place], [place] 3513502-22-2024 18:04-0500Body xjgujfwrjwt47.7 [degF]Kaylinn Dokken [address] [place], [place] 3513502-22-2024 18:04-0500 Diastolic blood vcarhuae65 mm[Hg]Kaylinn Dokken [facility]02-22-2024 18:04-0500Heart rate95 /minKoby Masterson [facility]02-22-2024 18:04-0500 Respiratory rate22 /minKoby Masterson [facility]02-22-2024 18:04-0743XpO5% (BldA) [Mass fraction]100 %Koby Masterson [facility]02-22-2024 18:04-0500 Systolic blood qauloumk595 mm[Hg]Koby Masterson [facility]02-13-2024 09:13-0500Body .1 cmAlesha Bigelow ASBESTOS WORKER HELPER.DYER ASSISTANT Work Phone: [facility]02-13-2024 09:13-0500Body phbykk38.8 kgAlesha Bigelow ASBESTOS WORKER HELPER.DYER ASSISTANT Work Phone: [facility]02-13-2024 09:13-0500Diastolic blood yootmlww14 mm[Hg]Ana Bigelow ASBESTOS WORKER HELPER.DYER ASSISTANT Work Phone: [facility]02-13-2024 09:13-0500Heart rate72 /min Ana Bigelow ASBESTOS WORKER HELPER.DYER ASSISTANT Work Phone: [facility]02-13-2024 09:13-0500Respiratory rate 20 /minAlesha Bigelow ASBESTOS WORKER HELPER.DYER ASSISTANT Work Phone: [facility]02-13-2024 09:13-5128GoG1% (BldA) [Mass fraction]98 %Ana Bigelow ASBESTOS WORKER HELPER.DYER ASSISTANT Work Phone: [facility]02-13-2024 09:13-0500Systolic blood vxlbcugd768 mm[Hg]Ana Bigelow ASBESTOS WORKER HELPER.DYER ASSISTANT Work Phone: [facility]02-05-2024 17:51-0500Body kewjgu575.1 Tank Nazario MD Work Phone: [facility] HospitalPmhwssgpif62-98-9505 17:51-0500Body mass index (BMI) [Ratio]19.34 kg/t5OwdezPeggy Nazario MD Work Phone: [facility] HospitalRcclowlfnm56-52-2384 17:51-0500Body temperature 98.01 [degF]Peggy Nazario MD Work Phone: [facility] HospitalRfeeqzvkfh92-58-5511 17:51-0500Body uysfjy54.71 kgPeFontana MD Work Phone: [facility] HospitalJfrchjmegp98-47-0620 17:51-0500Diastolic blood mm[Hg]Peggy Nazario MD Work Phone: [facility] HospitalDoueroreoh97-75-2630 17:51-0500Heart rate75 /min Peggy Nazario MD Work Phone: [facility] HospitalZjqhjvlxcg64-03-4891 17:51-4948BdI1% (BldA) [Mass fraction]99 %Peggy Nazario MD Work Phone: [facility] HospitalNhrqkrpyim36-61-1807 17:51-0500Systolic blood kspctvum294 mm[Hg]Peggy Nazario MD Work Phone: [facility] HospitalAwwhdgafqs19-00-9303 06:00-0500Diastolic blood nqfutgqd38 mm[Hg][facility]02-04-2024 06:00-0500Heart rate61 /minNo Armen [facility]02-04-2024 06:00-0500Mean blood dnbfugns24 mm[Hg][facility]02-04-2024 06:00-0500 Respiratory rate11 /minNoah Armen [address] [place], [place] 3974302-04-2024 06:00-8838UqM6% (BldA) [Mass fraction]100 %Parveen Armen [address] [place], [place] 3513502-04-2024 06:00-0500 Systolic blood yyjxyfjp880 mm[Hg]Parveen Armen [address] [place], [place] 3513502-04-2024 05:06-0500Body morapipnbwl79.98 [degF]Parveen Armen [address] [place], [place] 3513502-04-2024 05:06-0500 Diastolic blood mm[Hg]Parveen Armen [address] [place], [place] 3513502-04-2024 05:06-0500gluc 79 mg/dLNoah Armen [address] [place], [place] 3513502-04-2024 05:06-0500gluc Parveen Armen [address] [place], [place] 3513502-04-2024 05:06-0500Heart rate85 /minNoah Armen [address] [place], [place] 3974302-04-2024 05:06-0500 Respiratory rate20 /minNoah Armen [address] [place], [place] 3974302-04-2024 05:06-2449GzA3% (BldA) [Mass fraction]98 %Parveen Armen [address] [place], [place] 3974302-04-2024 05:06-0500 Systolic blood hdptxpil884 mm[Hg]Parveen Armen [address] [place], [place] 3513501-30-2024 06:38-0500 Diastolic blood coyzmnat64 mm[Hg]Parveen Armen [address] [place], [place] 3513501-30-2024 06:38-0500Heart rate78 /minNoah Armen [address] [place], [place] 3513501-30-2024 06:38-0500Mean blood dwmqqbuk044 mm[Hg]Parveen Armen [address] [place], [place] 3513501-30-2024 06:38-0500 Respiratory rate13 /minNoah Armen [address] [place], [place] 3513501-30-2024 06:38-7751TrV5% (BldA) [Mass fraction]98 %Parveen Armen [address] [place], [place] 3513501-30-2024 06:38-0500 Systolic blood zgrhkpdo150 mm[Hg]Parveen Armen [address] [place], [place] 3513501-30-2024 05:58-0500 Diastolic blood kmvyzvcu61 mm[Hg]Parveen Armen [address] [place], [place] 3513501-30-2024 05:58-0500Heart rate55 /minNoah Armen [address] [place], [place] 3513501-30-2024 05:58-0500Mean blood rxyocmqa397 mm[Hg]Parveen Armen [address] [place], [place] 3513501-30-2024 05:58-0500 Respiratory rate16 /minNoah Armen [address] [place], [place] 3513501-30-2024 05:58-0643QiE0% (BldA) [Mass fraction]100 %Parveen Armen [address] [place], [place] 3513501-30-2024 05:58-0500 Systolic blood tliofyjk820 mm[Hg]Parveen Armen [address] [place], [place] 3513501-30-2024 04:56-0500 Diastolic blood mm[Hg]Parveen Armen [address] [place], [place] 3513501-30-2024 04:56-0500Heart rate60 /minNoah Armen [address] [place], [place] 3513501-30-2024 04:56-0500Mean blood steffyri09 mm[Hg]Parveen Armen [address] [place], [place] 3513501-30-2024 04:56-0500 Respiratory rate18 /minNoah Armen [address] [place], [place] 3513501-30-2024 04:56-9822EmA1% (BldA) [Mass fraction]100 %Parveen Armen [address] [place], [place] 3513501-30-2024 04:56-0500 Systolic blood wmsjklio870 mm[Hg]Parveen Armen [address] [place], [place] 3513501-30-2024 04:27-0500gluc 96 mg/dLNoizabel Armen [address] [place], [place] 3513501-30-2024 04:27-0500gluc Parveen Armen [address] [place], [place] 3513501-30-2024 04:13-0500Body hpslyghunfr64.98 [degF]Parveen Armen [address] [place], [place] 3513501-30-2024 04:13-0500Heart rate83 /minNoah Armen [address] [place], [place] 3974301-30-2024 04:13-0500 Respiratory rate16 /minNoah Armen [address] [place], [place] 3974312-29-2023 08:55-0500Body gpykxz087.1 Tank Nazario MD Work Phone: [facility] HospitalDmbbntadwd51-58-6927 08:55-0500Body mass index (BMI) [Ratio]19.44 kg/b6YxonjPeggy Nazario MD Work Phone: [facility] HospitalSljplfjnnz64-40-4781 08:55-0500Body temperature 97.9 [degF]Peggy Nazario MD Work Phone: 1(419)668-[address] [place], [place] [address]Dvioyhmyhq94-40-6964 08:55-0500Body udciqx21.98 kgPeter Aravind MCMAHON Work Phone: [facility] HospitalCyyhmsjblh07-94-7352 08:55-0500Diastolic blood bpwaqwqa48 mm[Hg]Peggy Nazario MD Work Phone: [facility] HospitalVbqxgzqnmp06-49-7431 08:55-0500Heart rate69 /min Peggy Nazario MD Work Phone: [facility] HospitalVelzohnljk92-52-6792 08:55-1686LrN9% (BldA) [Mass fraction]99 %Peggy Nazario MD Work Phone: [facility] HospitalZoddrhltux04-76-7412 08:55-0500Systolic blood ecsdcjli389 mm[Hg]Peggy Nazario MD Work Phone: [facility] HospitalPegwbqjtcr57-43-6541 06:46-0500Blood Pressure LocationDaalexandre HENRIQUEZ [facility]12-08-2023 06:46-0500 Diastolic blood mm[Hg]Johan HENRIQUEZ [facility]12-08-2023 06:46-0500Heart rate81 /Nery HENRIQUEZ [facility]12-08-2023 06:46-0500 Respiratory rate18 /Nery HENRIQUEZ [facility]12-08-2023 06:46-8592BsA8% (BldA) [Mass fraction]100 %Johan HENRIQUEZ [facility]12-08-2023 06:46-0500 Systolic blood jhcdpewn378 mm[Hg]Johan HENRIQUEZ [facility]12-07-2023 09:56-0500Blood Pressure LocationDaalexandre HENRIQUEZ [facility]12-07-2023 09:56-0500 Diastolic blood mm[Hg]Johan HENRIQUEZ [facility]12-07-2023 09:56-0500Heart rate62 /Nery HENRIQUEZ [facility]12-07-2023 09:56-7328JgX7% (BldA) [Mass fraction]98 %Johan HENRIQUEZ [facility]12-07-2023 09:56-0500 Systolic blood dtmlijvn576 mm[Hg]Johan HENRIQUEZ [facility]11-24-2023 12:38-0500 Diastolic blood vvxpkovc81 mm[Hg]Jeff Tay [facility]11-24-2023 12:38-0500Heart rate94 /minJohn Tay [address] [place], [place] 3974311-24-2023 12:38-0500 Respiratory rate13 /minJohn Tay [address] [place], [place] 3974311-24-2023 12:38-7653UxA0% (BldA) [Mass fraction]94 %Jeff Wadee [facility]11-24-2023 12:38-0500 Systolic blood mpuvswyl033 mm[Hg]Jeff Cross [facility]11-24-2023 12:00-0500 Diastolic blood rifgpjxa73 mm[Hg]Jeff Cross [address] [place], [place] 3974311-24-2023 12:00-0500Heart giyy426 /minJohn Tay [facility]11-24-2023 12:00-0500Mean blood wimhghlu99 mm[Hg]Jeff Cross [facility]11-24-2023 12:00-0500 Respiratory rate17 /minJohn Tay [address] [place], [place] [id number] 12:00-8677QhE2% (BldA) [Mass fraction]96 %Jeff Cross [address] [place], [place] [id number] 11:34-0500 Diastolic blood fiwcyuks78 mm[Hg]Jeff Cross [address] [place], [place] [id number] 11:34-0500Heart rate93 /minJohn Tay [address] [place], [place] [id number] 11:34-0500 Respiratory rate18 /minJohn Tay [address] [place], [place] [id number] 11:34-9240JeB4% (BldA) [Mass fraction]94 %Jeff Cross [address] [place], [place] [id number] 11:34-0500 Systolic blood wukmvlcx925 mm[Hg]Jeff Cross [address]11-24-2023 09:52-0500Heart cmce193 /minJohn Tay [address] [place], [place] [id number] 08:57-0500Body rxrzquxvrwe55.88 [degF]Jeff Cross [address] [place], [place] [id number] 08:57-0500Heart bhzg999 /minJohn Tay [address] [place], [place] [id number] 08:57-0500 Respiratory rate24 /minJohn Tay [address] [place], [place] [id number] 14:03-0500 Hourly RoundingRonobir ABDI [address] [place], [place] [id number] 14:03-0500 Promise to ReturnRonobir ABDI [address] [place], [place] [id number] 13:34-0500 Hourly RoundingRonobir ABDI [address] [place], [place] [id number] 13:00-0500 Hourly RoundingRonobir ABDI [address] [place], [place] [id number] 13:00-0500 Promise to ReturnRonobir ABDI [address] [place], [place] [id number] 12:07-0500 Promise to ReturnRonobir ABDI [address] [place], [place] 3513511-23-2023 12:00-0500Blood Pressure LocationRonobir ABDI [address] [place], [place] 3513511-23-2023 12:00-0500Body atdqvigguej42.06 [degF]Ronobir ABDI [address] [place], [place] 3513511-23-2023 12:00-0500 Diastolic blood mm[Hg]Ronobir ABDI [address] [place], [place] 3974311-23-2023 12:00-0500Heart rate78 /minRonobir ABDI [address] [place], [place] 3513511-23-2023 12:00-0500Mean blood cncrtoyy67 mm[Hg]Ronobir ABDI [address] [place], [place] 3513511-23-2023 12:00-6262WyU8% (BldA) [Mass fraction]94 %Ronobir ABDI [address] [place], [place] 3974311-23-2023 12:00-0500 Systolic blood mm[Hg]Ronobir ABDI [address] [place], [place] 3974311-23-2023 10:00-0500 Diastolic blood btyobffx25 mm[Hg]Ronobir ABDI [address] [place], [place] 3974311-23-2023 10:00-0500Heart rate77 /minRonobir ABDI [address]11-23-2023 10:00-0500Mean blood cbfuqftq25 mm[Hg]Ronobir ABDI [address] [place], [place] 3974311-23-2023 10:00-0500 Systolic blood avedbnsi989 mm[Hg]Ronobir ABDI [address] [place], [place] 3513511-23-2023 07:00-0500Body tebbltztmam75.7 [degF]Ronobir ABDI [address] [place], [place] 3513511-23-2023 07:00-0500 Diastolic blood fvbmyzds81 mm[Hg]Ronobir ABDI [address] [place], [place] 3513511-23-2023 07:00-7155QeC5% (BldA) [Mass fraction]93 %Ronobir ABDI [address]11-23-2023 07:00-0500 Systolic blood qmkacjeu92 mm[Hg]Ronobir ABDI [address] [place], [place] 3974311-23-2023 00:18-0500Body wntfdjgxxxy59.7 [degF]Ronobir ABDI [address] [place], [place] 3513511-23-2023 00:18-1356OrM0% (BldA) [Mass fraction]93 %Ronobir ABDI [address] [place], [place] 3974311-22-2023 22:10-0500Mean blood kzvyfhpv14 mm[Hg]Ronobir ABDI [address] [place], [place] 3513511-22-2023 16:03-0500Mean blood ufvxaxwc89 mm[Hg]Ronobir ABDI [address] [place], [place] 3513511-22-2023 11:18-0500Mean blood gzxcsixz01 mm[Hg]Ronobir ABID [address] [place], [place] 3974311-22-2023 11:18-0500Body ppcninaxttl77.06 [degF]Ronobir ABDI [address] [place], [place] 3513511-22-2023 09:59-0500Mean blood oydopkkn78 mm[Hg]Ronobir ABDI [address] [place], [place] 3974311-22-2023 09:58-0500Body qfdzodzjnwj08.42 [degF]Ronobir ABDI [address] [place], [place] 3513511-21-2023 19:23-0500Body sukjhscozkq76.7 [degF]Ronobir ABDI [address] [place], [place] 3513511-20-2023 18:22-0500 BP/Pulse Patient PositionRonobir ABDI [address] [place], [place] 3513511-20-2023 14:00-0500 Respiratory rate17 /minRonobir ABDI [address] [place], [place] [id number] 06:46-0500 Respiratory rate18 /minRonobir ABDI [address] [place], [place] 3513511-20-2023 06:45-0500 BP/Pulse Patient PositionRonobir ABDI [address] [place], [place] [id number] 04:30-0500 Respiratory rate16 /minRonobir ABDI [address] [place], [place] [id number] 02:45-0500Heart rate90 /minRonobir ABDI [address] [place], [place] [id number] 02:30-0500 Respiratory rate12 /minRonobir ABDI [address] [place], [place] 3513511-20-2023 02:15-0500 Respiratory rate13 /minRonobir ABDI [address] [place], [place] 3513511-19-2023 21:27-0500Heart nhjx181 /minRonobir ABDI [address] [place], [place] 3513511-19-2023 21:27-0500 Respiratory rate18 /minRonobir ABDI [address] [place], [place] 3513511-18-2023 00:30-0500 Diastolic blood fkbthokd17 mm[Hg]Kaylinn Dokken [address] [place], [place] 3513511-18-2023 00:30-0500Heart neva562 /minKaylinn Dokken [address] [place], [place] 3513511-18-2023 00:30-0500Mean blood gbgilfgy22 mm[Hg]Kaylinn Dokken [address] [place], [place] 3513511-18-2023 00:30-0500 Respiratory rate18 /minKaylinn Dokken [address] [place], [place] 3513511-18-2023 00:30-4935LgO5% (BldA) [Mass fraction]95 %Kaylinn Dokken [address] [place], [place] 3513511-18-2023 00:30-0500 Systolic blood egesntoo48 mm[Hg]Kaylinn Dokken [address] [place], [place] 3513511-17-2023 23:24-0500 Diastolic blood ntmajdah09 mm[Hg]Kaylinn Dokken [address] [place], [place] 3513511-17-2023 23:24-0500Heart pllo708 /minKaylinn Dokken [address] [place], [place] 3513511-17-2023 23:24-0500Mean blood lfaytzjh82 mm[Hg]Kaylinn Dokken [address] [place], [place] 1804211-17-2023 23:24-0500 Respiratory rate16 /minKaylinn Dokken [address] [place], [place] 3513511-17-2023 23:24-3999UlH1% (BldA) [Mass fraction]94 %Kaylinn Dokken [address] [place], [place] 3513511-17-2023 23:24-0500 Systolic blood mm[Hg]Kaylinn Dokken [address] [place], [place] 3513511-17-2023 22:30-0500Body hpgakajbnyk79.88 [degF]Kaylinn Dokken [address] [place], [place] 3513511-17-2023 22:30-0500 Diastolic blood llynlkow037 mm[Hg]Kaylinn Dokken [address] [place], [place] 3513511-17-2023 22:30-0500Heart ohyz551 /minKaylinn Dokken [address] [place], [place] 3513511-17-2023 22:30-0500Mean blood cfgiycms190 mm[Hg]Kaylinn Dokken [address] [place], [place] 3513511-17-2023 22:30-0500 Respiratory rate18 /minKaylinn Dokken [address] [place], [place] 3513511-17-2023 22:30-7296CjX4% (BldA) [Mass fraction]100 %Kaylinn Dokken [address] [place], [place] 3513511-17-2023 22:30-0500 Systolic blood zftkovbo266 mm[Hg]Kaylinn Dokken [address] [place], [place] 3513511-17-2023 19:33-0500Body nozlgjimqlc93.7 [degF]Kaylinn Dokken [address] [place], [place] 1804211-17-2023 19:33-0500Heart xigu982 /Wale Masterson [address]09-13-2023 15:19-0400Blood Pressure LocationPaabelino BROOKS [facility]09-13-2023 15:19-0400Diastolic blood bzyirneu53 mm[Hg]Micheline BROOKS [facility]09-13-2023 15:19-0400Heart rate80 /minMicheline BROOKS [facility]09-13-2023 15:19-0400Systolic blood nluceejb577 mm[Hg]Micheline BROOKS [facility]08-22-2023 16:30-0400Diastolic blood agerzbpa85 mm[Hg]Jeff Wadee [address] [place], [place] [id number] 16:30-0400Heart rate39 /Juan Cross [address] [place], [place] [id number] 16:30-0400 Respiratory rate14 /Juan Cross [address] [place], [place] [id number] 16:30-3561YcE3% (BldA) [Mass fraction]99 %Jeff Tay [address] [place], [place] [id number] 16:30-0400 Systolic blood mm[Hg]Jeff Cross [address] [place], [place] [id number] 15:52-0400Body awikxzgnumz15.06 [degF]Jeff Cross [address] [place], [place] [id number] 15:52-0400 Diastolic blood dfltolhu11 mm[Hg]Jeff Cross [address]08-22-2023 15:52-0400Heart rate66 /Juan Cross [address] [place], [place] [id number] 15:52-0400 Respiratory rate14 /Juan Cross [address] [place], [place] [id number] 15:52-2732PaL1% (BldA) [Mass fraction]99 %Jeff Cross [address]08-22-2023 15:52-0400 Systolic blood vaktvass988 mm[Hg]Jeff Cross [address]08-22-2023 14:52-0400 Diastolic blood whypkcap61 mm[Hg]Jeff Cross [address]08-22-2023 14:52-0400Heart rate64 /Juan Cross [address] [place], [place] [id number] 14:52-0400 Respiratory rate14 /Juan Cross [address] [place], [place] [id number] 14:52-4814QpA5% (BldA) [Mass fraction]100 %Jeff Cross [address] [place], [place] [id number] 14:52-0400 Systolic blood yrcwnezm64 mm[Hg]Jeff Cross [address] [place], [place] [id number] 14:07-0400Body mtvletjiaqe09.06 [degF]Jeff Cross [address] [place], [place] [id number] 13:52-0400Body hzgycfalaoz58.24 [degF]Jeff Cross [address] [place], [place] [id number] 13:52-0400Heart wjes726 /minJeff Wadee [facility]06-17-2023 21:23-0400Body qmbmmwbrenw30.7 [degF][facility]06-17-2023 21:23-0400Diastolic blood mm[Hg][facility]06-17-2023 21:23-0400Heart rate82 /[facility]17-2023 21:23-0400Respiratory rate18 /[facility]-17-2023 21:23-8055QrX3% (BldA) [Mass fraction]97 %[facility]06-17-2023 21:23-0400Systolic blood pressure 125 mm[Hg][facility]01-19-2023 14:01-0500 Diastolic blood mm[Hg]Yennifer Iraheta [facility]01-19-2023 14:01-0500Mean blood bllclpjo84 mm[Hg]Yennifer Iraheta [facility]01-19-2023 14:01-0500 Systolic blood npudjthg909 mm[Hg]Yennifer Iraheta [facility]01-19-2023 13:48-0500Blood Pressure LocationMohamed Esequiel [address] [place], [place] 2911401-19-2023 13:48-0500 Diastolic blood uxdbmxel92 mm[Hg]Yennifer Iraheta [facility]01-19-2023 13:48-0500Heart rate60 /minMohamed Esequiel [facility]01-19-2023 13:48-7375KgI6% (BldA) [Mass fraction]98 %Yennifer Iraheta [address] [place], [place] 2911401-19-2023 13:48-0500 Systolic blood wibdsijh717 mm[Hg]Yennifer Iraheta [facility]10-31-2022 08:54-0400Blood Pressure LocationMohamed Esequiel [address] [place], [place] 2911410-31-2022 08:54-0400 Diastolic blood esxfrnfs63 mm[Hg]Yennifer Iraheta [address] [place], [place] 2911410-31-2022 08:54-0400Heart rate75 /minMohamed Esequiel [address] [place], [place] 2911410-31-2022 08:54-1061CqQ7% (BldA) [Mass fraction]96 %[facility] [address] [place], [place] 2911410-31-2022 08:54-0400 Systolic blood rlwevpmx258 mm[Hg]Yennifer Iraheta [address] [place], [place] 2911407-21-2022 09:59-0400Blood Pressure LocationJENNIFER BLADIMIR [facility] 07-21-2022 09:59-0400Diastolic blood egxlhpor86 mm[Hg] CARMINA BLADIMIR [facility] 07-21-2022 09:59-0400Heart rate77 /minJENNIFER BLADIMIR [facility] 07-21-2022 09:59-0400Systolic blood ukcdehlo044 mm[Hg] CARMINA BLADIMIR [facility] 07-05-2022 13:17-0400Body miazltriypf80.6 [degF]Jeff Cross [address] [place], [place] [id number] 13:17-0400 Diastolic blood alhwihzc44 mm[Hg]Jeff Cross [address] [place], [place] [id number] 13:17-0400Heart rate86 /minJeff Cross [address] [place], [place] [id number] 13:17-0400 Respiratory rate18 /minJeff Cross [address]07-05-2022 13:17-2707MfD6% (BldA) [Mass fraction]99 %Jeff Cross [address] [place], [place] [id number] 13:17-0400 Systolic blood gzaslmny295 mm[Hg]Jeff Cross [address]05-13-2022 17:39-0400Body fgnouiuhirj93.7 [degF]Jeff Cross [address] [place], [place] 3974305-13-2022 17:39-0400 Diastolic blood urtfledq15 mm[Hg]Jeff Cross [address] [place], [place] 3974305-13-2022 17:39-0400Heart rate81 /Juan Cross [address] [place], [place] 3974305-13-2022 17:39-0400 Respiratory rate15 /minJeff Cross [address] [place], [place] [id number] 17:39-9306AxZ0% (BldA) [Mass fraction]100 %Jeff Cross [address] [place], [place] [id number] 17:39-0400 Systolic blood qidjqioq901 mm[Hg]Jeff Cross [address] Encounters Encounter DateEncounter TypeCare ProviderFacilityStart: 31-26-3585Ouuzxpfoob and management of inpatientSAMER J [facility] Campustart: 25-25-4836Zlhpdkhcvv and management of inpatientGEORGE [facility]tart: 57-89-5546ddelhyefqiNANTLV [facility]art: 05-27-2025 End: 88-83-3108Jmmyssgzwj and management of inpatientGEORGE [facility]tart: 05-19-2025 End: 31-65-2946pbkltgxkorAUEOXR [facility] Start: 05-14-2025 End: 27-94-9491Cttnmxtheron Brian MD Work Phone: [facility]: 05-14-2025 End: 91-33-7597Efptmgtheron Brian MD Work Phone: [facility]: 05-14-2025 End: 11-25-5431Bcosac outpatient visit 25 minutesHannah Brian MD Work Phone: [facility] HospitalComment on above:Bee sting, accidental or unintentional, initial encounter (Primary Dx); Gastroesophageal reflux disease without esophagitis; Ear fullness, right; Fluid level behind tympanic membrane of right earStart: 05-14-2025 End: 37-55-9022bbczleeknpUNSRIHardeep Valenzuela AvailableStart: 05-08-2025 End: 12-06-5199Rhpzfg outpatient visit 40 Suad Brian MD Work Phone: [facility] HospitalComment on above: Hematuria, unspecified type (Primary Dx); Painful urination; C. difficile diarrhea; Mitral valve regurgitation due to cardiomyopathy (HCC); Atrial fibrillation, persistent (HCC); FPC current use of anticoagulantStart: 05-08-2025 End: 81-16-5901ocefeodyirZFSWEHardeep Valenzuela AvailableStart: 05-08-2025 End: 71-58-3100Bcrbklleobardo Brian MD Work Phone: noms [facility] MedicineStart: 05-08-2025 End: 94-99-4481Bwiycgtheron Brian MD Work Phone: [facility] MedicineStart: 04-28-2025 End: 69-96-5684Lpqcccyyp department patient visitAstrpamela Cazares CyrusariFacility:[facility] Start: 04-24-2025 End: 26-46-3138pmhhdrabllNwtle M. 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; AnxietyStart: 04-21-2025 End: 84-00-2299fprcnvhdtjNLCUTHardeep Valenzuela AvailableStart: 04-19-2025 End: 03-46-2302Fuolqbgme Sanjiv Brian MD Work Phone: noM[facility]lesex Hospital MedicineComment on above: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)Start: 04-19-2025 End: 30-30-6679Bhgboqtrc department patient visitJayson CallowayFacility:[facility] Start: 04-17-2025 End: 13-36-8694FjcqrzVkeln M Ruggles MD Work Phone: noms [facility] HEALTHComment on above:AnxietyStart: 04-16-2025 End: 26-01-6164bfrjwijxgiSCJSLV [facility] Start: 04-07-2025 End: 52-84-3379Hgwnnhtheron Brian MD Work Phone: noMS Jose Angel Parisi [facility]art: 04-07-2025 End: 52-12-3391Ipvfdntheron Brian MD Work Phone: noMS Jose Angel Parisi MedicineStart: 04-07-2025 End: 23-50-8364Orxagy outpatient visit 25 Suad Brian MD Work Phone: noM[facility] MedicineComment on above:Frequent urination (Primary Dx); Painful urination; Left lower quadrant pain; Gastroesophageal reflux disease without esophagitis; Exertional dyspnea; Mitral valve regurgitation due to cardiomyopathy (HCC); Hypertensive heart disease with heart failure (HCC); Unspecified systolic (congestive) heart failure (HCC)Start: 04-07-2025 End: 50-74-7574fuleoklizhVIAHVHardeep Valenzuela AvailableStart: 03-31-2025 End: 94-62-8288qyfhbzsyxzAOCRBCHocking Valley Community Hospital Start: 02-18-2025 End: 32-08-5385otonbfqgtpRLDZSelect [facility]-Fairhilltart: 02-10-2025 End: 11-73-9207akthrzqaqjKKJJSQMem[facility] Start: 01-23-2025 End: 42-62-5874akvqxsxrvaNDIRXTT [facility] Hospitaltart: 01-22-2025 End: 45-27-2873Axyenwtheron Brian MD Work Phone: noMS NE FMStart: 01-22-2025 End: 00-27-1911Oigjiotheron Brian MD Work Phone: noms NE FMStart: 01-22-2025 End: 49-86-9024Yhmjtl outpatient visit 25 minutesHannah Brian MD Work Phone: noms NE FMComment on above:Atrial fibrillation, persistent (HCC) (CMS/HCC) (Primary Dx); 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; Primary hypertension (CMS/HCC); Anxiety; Panic attack (CMS/HCC)Start: 01-07-2025 End: 21-10-6643gnagsuaqwiAQCNMHardeep Valenzuela AvailableStart: 01-07-2025 End: 73-17-9069Xbjszutheron Brian MD Work Phone: noms NE FMStart: 01-07-2025 End: 14-26-0217Bmaayntheron Brian MD Work Phone: noms NE FMStart: 22-51-3403kktvubghimVHDWEATrumbull Memorial Hospitaltart: 12-17-2024 End: 24-30-0275Ufoklh outpatient visit 15 minutesHannah Brian MD Work Phone: noms NE FMComment on above:Hematuria, unspecified type (Primary Dx); Right flank pain; Dysuria; Urinary frequencyStart: 12-17-2024 End: 98-05-6967hiiewsiwsjRWTGLHardeep Valenzuela AvailableStart: 12-17-2024 End: 61-37-5351Eikgxntheron Brian MD Work Phone: noms NE FMStart: 12-17-2024 End: 45-79-5952Civvbgtheron Brian MD Work Phone: noms NE FMStart: 12-16-2024 End: 63-82-8436JdsxueKwxvq M Ruggles MD Work Phone: NONY POPULATION HEALTHComment on above:AnxietyStart: 17-83-8990bvgpfowcweGJDLMagruder Hospitaltart: 11-29-2024 End: 82-62-7652txcgsqxlqgCZMGMagruder Hospitaltart: 11-25-2024 End: 46-41-2405Kqfxkrtheron Brian MD Work Phone: noms NE FMStart: 11-25-2024 End: 56-23-0649Lbkvil Agusto Brian MD Work Phone: noms NE FMStart: 11-25-2024 End: 97-63-3649Tocsbh outpatient visit 25 minutesHannah Brian MD Work Phone: noms NE FMComment on above:Acute cough (Primary Dx); Bruising; FPC 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; Atrial fibrillation, persistent (HCC) (CMS/HCC); Primary hypertension (CMS/HCC); Cardiomyopathy, unspecifiedStart: 11-25-2024 End: 37-89-3399yzthcmmaayXDHZTHardeep Valenzuela AvailableStart: 11-18-2024 End: 31-82-8381Ozvvqniz Result Sanjiv Brian MD Work Phone: noms External Department UnsolicitedStart: 11-18-2024 End: 53-62-4548Zeqpgowy Result Sanjiv Brian MD Work Phone: noms External Department UnsolicitedStart: 11-18-2024 End: 89-79-8209Vmcnon outpatient visit 25 minutesHannah Brian MD Work Phone: noms NE FMComment on above:Acute cough (Primary Dx); Hematuria, unspecified type; 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; Atrial fibrillation, persistent (HCC) (CMS/HCC); Primary hypertension (CMS/HCC)Start: 11-18-2024 End: 76-51-4009uxpsvkcircYWKEA M RUGGLESNot AvailableStart: 11-15-2024 End: 45-13-7268QobqrzWqbnu M Ruggles MD Work Phone: noms POPULATION HEALTHComment on above:AnxietyStart: 10-22-2024 End: 70-65-7294dkigmpkxlfMGSQSelect Medical Specialty Hospital [facility]-Fairhilltart: 10-08-2024 End: 20-21-0281Xsutpp Renan ABRAMS Work Phone: noms NE FMStart: 10-08-2024 End: 30-82-4753Qripjjleobardo ABRAMS Work Phone: noms NE FMStart: 10-08-2024 End: 12-83-7790Fiqzxs outpatient visit 25 minutesSherlyn ABRAMS Work Phone: noms NE FMComment on above:Primary hypertension (CMS/HCC) (Primary Dx); Atrial fibrillation, persistent (HCC) (CMS/HCC); Atherosclerosis of aorta (CMS/HCC); Panic attack (CMS/HCC)Start: 10-08-2024 End: 23-14-8777clxpwcypwfNCLTRNR J SOMMERSNot AvailableStart: 09-20-2024 End: 77-58-3005Mqlffoloe Sanjiv Brian MD Work Phone: noms NE FMComment on above:Med RefillStart: 08-20-2024 End: 95-82-5093VjonbzAbqhl M Ruggles MD Work Phone: noms POPULATION HEALTHComment on above:AnxietyStart: 08-12-2024 End: 37-19-6151Bxltza outpatient visit 25 minutesRickie Aviles COIL MACHINE SUPERVISOR Work Phone: noms NE FMComment on above:Dysuria (Primary Dx); Urinary frequency; Atrial fibrillation, persistent (HCC) (CMS/HCC); 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; BMI 22.0-22.9, adultStart: 08-12-2024 End: 91-44-7607zdpheizjseGMFCKMK A DONNAMILLERNot AvailableStart: 08-12-2024 End: 02-52-5905Kjnhab Doc Aviles COIL MACHINE SUPERVISOR Work Phone: noms NE FMStart: 08-12-2024 End: 19-03-8051Pvetnx Doc Aviles COIL MACHINE SUPERVISOR Work Phone: noms NE FMStart: 08-05-2024 End: 74-18-2290Bqlsxz outpatient visit 25 minutesStephan Boo DO Work Phone: noms SWS OBComment on above:Postmenopausal atrophic vaginitis; Breast cancer screening by mammogramStart: 08-05-2024 End: 64-28-4002ziiyijkhsbXZOVCON D BRUNERNot AvailableStart: 07-30-2024 End: 14-05-4466pnvyehnacoSHEY [facility]ertart: 07-22-2024 End: 53-53-9083LfpoybThpfrPatricia Brian MD Work Phone: noms POPULATION HEALTHComment on above:AnxietyStart: 07-02-2024 End: 86-87-3183rorvmkxcurDKWITNF [facility]tart: 07-01-2024 End: 67-07-7974Ykoikw outpatient visit 25 minutesSherlyn ABRAMS Work Phone: noms NE FMComment on above:DysuriaStart: 07-01-2024 End: 00-52-5003tvewkfsiahLZVUXXJ J SOMMERSNot AvailableStart: 07-01-2024 End: 75-70-7514Jvlmtq Renan ABRAMS Work Phone: noms NE FMStart: 07-01-2024 End: 49-46-5051Rjjzpl Renan ABRAMS Work Phone: noms NE FMStart: 06-27-2024 End: 79-57-2492szkwodnrtzCVPHH DOUGLAS CROSBYFacility:[facility] Start: 06-27-2024 End: 73-79-7264Wslbkcj encounter procedureSkenzie Goldsmith MD Work Phone: UrologyComment on above:Feeling of incomplete bladder emptying (Primary Dx); Stricture of female urethra, unspecified stricture typeStart: 06-10-2024 ambulatoryKettering Healthtart: 06-10-2024 End: 26-13-9793qpwjcljpwxIZFJKettering Healthtart: 06-03-2024 End: 62-29-4483drzcljsyzvZURA CHACKOFacility:BANNERtart: 06-03-2024 End: 33-56-0494Clboqiy encounter procedureGUTHRIE [facility] Start: 05-07-2024 End: 64-58-7368Qzrklka encounter procedureSkenzie Goldsmith MD Work Phone: UrologyComment on above:Stricture of female urethra, unspecified stricture type (Primary Dx); Feeling of incomplete bladder emptyingStart: 05-07-2024 End: 44-86-4298uztuomugysPdqodbDevyn Goldsmith MD Work Phone: UrologyStart: 68-96-7706yyukmsvrmhAtwkiyi R WATERS [facility]Start: 21-23-2080NibmwaEtprmyHelen Rivas APRN.CNP Work Phone: CardiologyComment on above:Refill RequestStart: 11-22-2023 End: 46-95-5385Llynjramd department patient visitJayson Calloway [facility] Start: 11-13-2023 End: 90-84-4648cpiulspjepBwivm M DeniseаннаFacility:FTMCStart: 11-13-2023 End: 83-89-9752Swrdeui encounter Inez Brian [facility] Start: 89-88-5592Qnwyscuoy encounterAlea Harley MD Work Phone: cardiologyComment on above:Patient UpdateStart: 10-16-2023 End: 16-52-2986Cyzdhji encounter Lion Goldsmith MD Work Phone: UrologyComment on above:Feeling of incomplete bladder emptying (Primary Dx); Stricture of female urethra, unspecified stricture type; Severe protein-calorie malnutrition (HCC)Start: 10-16-2023 End: 23-32-6828apfuzomtqrQDIZJ DOUGLAS CROSBYFacility:[facility] Start: 10-05-2023 End: 01-02-4492Awplpchfb department patient visitKoby Masterson [facility] Start: 48-06-4120Htxebzbkq encounterAlea Harley MD Work Phone: cardiologyComment on above:ResultsStart: 09-26-2023 End: 20-14-7535ibdcbbvjusTamirm P Vasavada MD Work Phone: UrologyStart: 17-21-3595Tffrodery Result Encounter Generic External Data ProviderNOMS External Department UnsolicitedStart: 95-55-6138Jspypibog Result EncounterGeneric External Data ProviderNOMS External Department UnsolicitedStart: 09-26-2023 End: 64-88-9967Gwarhir encounter Kelsy Rivas APRN.DYER ASSISTANT Work Phone: CardiologyComment on above:Non-rheumatic mitral regurgitation (Primary Dx); Chronic HFrEF (heart failure with reduced ejection fraction) (HCC); Nonrheumatic tricuspid valve regurgitation; Non-ischemic cardiomyopathy (HCC); Persistent atrial fibrillation (HCC); 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; History of cardioversion; Primary hypertensionFeeling of incomplete bladder emptying (Primary Dx); Stricture of female urethra, unspecified stricture type; Severe protein-calorie malnutrition (HCC)Start: 13-38-5132Ojiaabrqh encounter Alea Harley MD Work Phone: cardiologyComment on above:Medication ProblemStart: 09-18-2023 End: 95-92-5950Qkhtzg outpatient visit 40 William Nazario MD Work Phone: noms NE FMComment on above:Mitral valve insufficiency, unspecified etiology (Primary Dx); Anxiety; Paroxysmal atrial fibrillation (CMS/HCC); Other cardiomyopathy (CMS/HCC); Hospital discharge follow-up; Other thrombophilia (D68.69); Atherosclerosis of aorta (I70.0)Start: 51-23-4633Rsfezfazf encounterCarmina Mcmahan APRN.DYER ASSISTANT Work Phone: CardiothoracicComment on above:Medication Problem Start: 09-17-2023 End: 13-56-7628Rasyjcsav department patient visitParveen Ayers [facility] Start: 87-85-3836HwyzpdCownh D Crosby MD Work Phone: noms NE FMComment on above:AnxietyStart: 09-12-2023 RefJeanna Nazario MD Work Phone: noms NE FMComment on above:Gastroesophageal reflux disease without esophagitisStart: 09-12-2023 End: 03-91-2387Ljboxxrwq department patient visitParveen Ayers [facility] Start: 08-28-2023 End: 41-15-6530ttjnctpumcJQHQBNette NAZARIOFacility:[facility] Start: 23-98-7643Uuxguslsun and management of inpatientUMESH N TRINITY [facility]: 08-23-2023 End: 98-13-3810Mtiohdk encounter procedureRumichael Villalba DO Work Phone: [facility] MAINStart: 08-23-2023 End: 36-66-6982lgrujsgbqdWafevnj Nathaniel DO Work Phone: CardiologyStart: 08-11-2023 End: 40-03-9433Apnmuu follow up visit related to original pxPeggy Nazario MD Work Phone: NODN NE FMComment on above:Anxiety (Primary Dx); Chronic fatigue syndromeStart: 39-45-1966Dtbmyalnl encounterPaabelino Sorto MD Work Phone: CardiothoracicComment on above:Insurance InquiryStart: 07-21-2023 End: 11-13-2402Agmwebfyf to same day surgery Rodríguez HENRIQUEZ [facility] Start: 07-21-2023 End: 09-19-9335evrmbywattSuibvs J NEWTONFacility:FTMCStart: 07-20-2023 End: 31-14-5525mhxyoviparIYXL NONEFacility:FTMCStart: 07-20-2023 End: 17-40-2091Fnytizx encounter procedureJohan HENRIQUEZ [facility] Start: 07-19-2023 End: 58-87-8730kknqcqderqDumlclm R WATERSFacility:EU [place]kyStart: 07-07-2023 End: 02-34-6839Bezpvpgrm department patient visitJeff Cross [facility] Start: 07-04-2023 End: 94-72-9119Wtm-admission assessmentJose Albertoalexandre HENRIQUEZ [facility] Start: 07-02-2023 End: 68-78-4055fcpgytjrmnJhvwugo OJUKWUFacility:FTMCStart: 07-02-2023 End: 95-62-4850EbrhimtuabrDatodcz R ABDI [facility] Start: 06-30-2023 End: 41-95-2093Cngriwedn department patient visitKoby Salter Doligini [facility] Start: 04-26-2023 End: 07-76-3748Kthkfyx encounter procedureMicheline BROOKS [facility] Shira Start: 04-04-2023 End: 63-94-5261Lviwiaqbe department patient visitJeff Cross [facility] Start: 01-28-2023 End: 95-83-9389Geawwrkhs department patient visitAstrit H YvetteT[facility]edo Hospital Start: 12-05-2022 End: 96-01-2410Xrakzaw encounter procedurePeSaucedo [facility] Start: 10-25-2022 End: 68-11-6684Sjfbtkm encounter procedureMicheline BROOKS [facility] Start: 10-03-2022 End: 93-68-4815Xyviqjo encounter procedureLanelvia Salter ClemonsExec[facility] Jose Angel Start: 09-01-2022 End: 93-42-7285Dcewgbk encounter procedureMolucia Iraheta [facility] Start: 07-12-2022 End: 29-07-3210Equiujd encounter procedureMohamlucas Iraheta [facility] Start: 06-13-2022 End: 62-43-0568Gaahnit encounter procedureMolucia Iraheta [facility] Start: 03-03-2022 End: 08-67-9380Qacddvj encounter procedureJEYANIQUE GARRISON [facility] Shira Start: 02-15-2022 End: 04-47-2630Pzdlxpwpd department patient visitJo Tay [facility] Start: 12-24-2021 End: 90-76-8696Vmdlulhao department patient visitJoUNM [facility] Start: 08-11-2021 End: 72-74-3571Lqttjsp encounter procedurePeggy Nazario [facility] Procedures DateProcedureProcedure DetailPerforming ClinicianStart: 16-44-3738Pkkrj dip stick/tablet rgnt non-auto w/o Frances Brian MD Work Phone: start: 44-12-3967Spevj dip stick/tablet rgnt non-auto w/o micrscSophy Brian MD Work Phone: start: 93-10-6843Bujgc dip stick/tablet rgnt non-auto w/o micrscpHanshelby Brian MD Work Phone: start: 82-61-9088Opxeybu bacterial quanttative colony count urineHannah De Leon Snehal MCMAHON Work Phone: start: 55-22-8935Judyr dip stick/tablet rgnt non-auto w/o micrscpHanshelby Brian MD Work Phone: start: 94-87-6166Nenmm dip stick/tablet rgnt non-auto w/o micrscpRickie Aviles NP Work Phone: start: 96-29-4880Yofgj dip stick/tablet rgnt non-auto w/o micrscpDeborah J Kt PA Work Phone: start: 67-86-2862Otrob dip stick/tablet rgnt auto w/o microscopyBulk Order ProviderStart: 78-60-5666Txeuo dip stick/tablet rgnt auto w/o microscopySandeileen Goldsmith MD Work Phone: Start: 54-21-0676Vcoan dip stick/tablet reagent auto microscopyBulk Order ProviderStart: 56-77-9101YOS CBC PNL BLD AUTOGeneric External Data ProviderStart: 05-68-6449TbbztjlsiungjzjoUGCCU KHOTStart: 49-39-3007Jhsondwhceewett echocardiographyDaniwilton HENRIQUEZ Start: 36-06-8215Jlrfnnyeygdcqit of both left and right heartRonobir ABDI Start: 01-30-2023H/O: hysterectomyStatus post hysterectomyPeter Aravind MCMAHON Work Phone: start: 55-65-0411Lrtltlvnuedxlrbut with dilation of urethral stricturePatrick BROOKS Start: 04-29-5584NlaszprncwZlrsf Nazario start: 96-64-5147Qikupjjy of urethraPeter Nazario start: 63-98-5880CqzywarztuvNkdaiow Vargo MD Work Phone: Start: 70-48-4040Cgynezupkojeevehk with dilation of urethral stricturePeter Nazario colon resectionPeter Nazario corneal implant (physical object)Peggy Nazario cystoscopyPeter Nazario dilation of urethraPeter Nazario comment on above:Dr. VenturaysterectomyPeter Aravind TonsillectomyPeter Aravind Plan of Treatment DateCare ActivityDetailAuthorStart: 12-96-1386Imadfsimm for malignant neoplasm of colonNOHCA Midwest DivisionStart: 39-39-2770Gcaix microalbumin profileDTaP,Tdap,Td Vaccine (5 - Td or Tdap)[facility]ertart: 67-02-1502Zihqwary Screening Diabetes ScreeningDiley Ridge Medical Centertart: 88-80-9722Nxbcldfv ScreeningDiabetes ScreeningDiley Ridge Medical Centertart: 47-67-0859Fyqcpfss ScreeningDiabetes Screening [facility]ertart: 05-14-2025 End: 01-00-0378Hheacqm encounter /01/2025 11:40 AM EDT Office Visit [facility] [place] [facility] [address] [place] [address] Hannah Brian MD [address] [place] [address] [facility] Jose Angel [facility] [place]Comment on above:Arrived Start: 05-08-2025 End: 92-23-3804Qppuzvr encounter putbbzcyx96/25/2025 2:20 PM EDT Office Visit [facility]S Jose Angel [facility] [place] [address] [place] [address] Hannah Brian MD [address] [place] [address] [facility]rived Start: 04-21-2025 End: 54-92-6213Thvekaq encounter ldjzkcikp40/08/2025 3:00 PM EDT Office Visit N[facility] Jose Angel [facility] [place] [address] [place] [address] Hannah Brian MD [address] [place] [address] [facility]: 04-09-2025 End: 91-05-8596Ykqzbvk encounter xjiqcmxkn91/27/2025 3:20 PM EDT Office Visit [facility]OM[facility] NE FM [address] [place] [address] Hannah Brian MD [address] [place] [address] NOMS NE FMStart: 04-07-2025 End: 97-04-1637Fxdtzwj encounter inibcqgfs95/25/2025 1:40 PM EDT Office Visit NOMBenitez [place] [facility] Abraham [address] [place] [address] Hannah Brian MD [address] [place] [address] [facility] Jose Angel [facility] MedicineComment on above:Arrived Start: 01-22-2025 End: 12-16-1647Fmudlcn encounter vfzmhgjxy48/11/2025 2:00 PM EDT Office Visit [facility] NE FM [address] [place] [address] Hannah Brian MD [address] [place] [address] ArrivedNOMS NE FMComment on above:ArrivedStart: 01-07-2025 End: 55-95-1573Qshzdyx encounter procedureNOMS NE FMComment on above:Arrived Start: 12-17-2024 End: 42-69-9049Jpucraa encounter procedureNOMS NE FMComment on above:Arrived Start: 12-17-2024 End: 68-49-9258Ymyxwaid identified in Urine by CultureUrine culture Microbiology Routine Right flank pain Dysuria Urinary frequency Expected: 12/17/2024 ( Approximate), Expires: 12/17/2025[facility] Work Phone: comment on above:Expected: 12/17/2024 (Approximate), Expires: 12/17/2025Start: 11-25-2024 End: 46-69-0562Tqxhnoh encounter cwcljvomy79/14/2025 11:00 AM EDT Office Visit [facility] NE [address] [place] [address] Nnrwyra, Hanna M, MD [address] [place] [address] ArrivedNOMS NE FMComment on above:ArrivedStart: 11-18-2024 End: 53-02-5265Ovggkdrr identified in Urine by CultureUrine culture Microbiology Routine Hematuria, unspecified type Expected: 11/18/2024 (Approximate), E xpires: 11/18/2025[facility] Work Phone: comment on above:Expected: 11/18/2024 (Approximate), Expires: 11/18/2025Start: 11-12-9997Rzzsbpmrfqsc Vaccine: 65+ Years (1 of 2 - PCV)Pneumococcal Vaccine: 65+ Years (1 of 2 - PCV)NOMS HealthcareComment on above:Postponed from 1956 (Patient Refused)Start: 10-08-2024 End: 07-04-9779Vpiqsey encounter procedureNOMS NE FMComment on above:Arrived Start: 60-69-8248NE Controlled (<130/80)BP Controlled (<130/80)[facility] Start: 25-32-0830LB Controlled (<130/80)BP Controlled (<130/80)[facility] Start: 08-12-2024 End: 67-37-3845Pqzbeqm encounter ukqulljol92/30/2024 4:00 PM EST Office Visit [facility]OM[facility] MONIQUE [address] [place] [address] Rickie Aviles NP [address] [place] [address] ArrivedFAWAD AMAYA FMComment on above:ArrivedStart: 08-05-2024 End: 67-41-3407Xscsqoj encounter rdyyziuru99/23/2024 2:45 PM EST Office Visit [facility] ERICKA OB [address] [place] [address] Stephan Boo, DO [address] [place] [address] [facility] OBStart: 08-05-2024 End: 14-07-5045WZX Breast - bilateral screeningBilateral screening mammogram with tomosynthesis Imaging Routine Breast cancer screening by mammogram Expected: 08/05/2024, Expires: 10/06/2025NOH[facility] Work Phone: comment on above:Expected: 08/05/2024, Expires: 10/06/2025Start: 07-29-2024 End: 74-18-3454Uihzplv encounter /16/2024 3:45 PM EST Office Visit [facility] ERICKA OB [address] [place] [address] Stephan Boo, DO [address] [place] [address] NOMS S[facility] OBStart: 12-11-2024Medicare Annual Wellness (AWV) Medicare Annual Wellness (AWV)[facility] HealthcareStart: 07-01-2024 End: 44-86-3426Tqlnxcn encounter lufkwxxwh85/18/2024 3:30 PM EST Office Visit NOM[facility] NE [address] [place] [address] Sherlyn Meraz PA [address] [place] [address] ArrivedNOCENTINELA FRE[facility] CENTINELA CAMPUSComment on above:ArrivedStart: 07-01-2024 End: 74-23-3016Hvihygab identified in Urine by CultureUrine culture Microbiology Routine Dysuria Expected: 07/01/2024 (Approximate), Expires: 07/01/2025[facility] Work Phone: comment on above:Expected: 07/01/2024 (Approximate), Expires: 07/01/2025Start: 07-01-2024 End: 91-55-9309Xvianruasepfx metabolic 2000 panel - Serum or PlasmaComprehensive metabolic panel Lab Routine Dysuria Expected: 07/01/2024 (Approximate), Expires: 07/01/2025[facility] Work Phone: comment on above:Expected: 07/01/2024 (Approximate), Expires: 07/01/2025Start: 04-23-2024 End: 26-89-5136Chzvnai encounter /10/2024 11:10 AM EDT Office Visit Urology [address] [address] Raphael Goldsmith MD [address] [place] [address] 6 month follow up per cc chartUrologyComment on above:6 month follow up per cc chartStart: 42-29-0022Rawna-19 Vaccine ( season)Covid-19 Vaccine ( season)[facility]art: 36-79-8802Ciaqaevge vaccinationDiley Ridge Medical Centertart: 11-10-2023 End: 87-90-9054Rddyvgj encounter rjufztbvn64/29/2024 1:00 PM EDT Office Visit NOM[facility] NE [address] [place] [address] Peggy Nazario MD [address] [place] [address] FAWAD AMAYA FMStart: 11-08-2023 End: 90-16-1578Zxzfr metabolic 2000 panel - Serum or PlasmaBASIC METABOLIC PNL Lab Routine Non-rheumatic mitral regurgitation Persistent atrial fibrillation (H CC) Non-ischemic cardiomyopathy (HCC) Chronic HFrEF (heart failure with reduced ejection fraction) (HCC) Expected: 11/08/2023 (Approximate), Expires: 02/07/2024 [facility] Work Phone: Comment on above:Expected: 11/08/2023 (Approximate), Expires: 02/07/2024Start: 11-08-2023 End: 81-83-1575ROB COMPLETEECG COMPLETE ECG Routine Non-rheumatic mitral regurgitation Persistent atrial fibrillation (HCC) Non-ischemic cardiomyopathy (HCC) Chronic HFrEF (heart failure with reduced ejection fraction) (HCC) Ex pected: 11/08/2023 (Approximate), Expires: 09/26/2024[facility] Work Phone: Comment on above:Expected: 11/08/2023 (Approximate), Expires: 09/26/2024Start: 10-25-2023 End: 54-53-0650Pfsen metabolic 2000 panel - Serum or PlasmaBASIC METABOLIC PNL Lab Routine Non-rheumatic mitral regurgitation Persistent atrial fibrillation (H CC) Non-ischemic cardiomyopathy (HCC) Chronic HFrEF (heart failure with reduced ejection fraction) (HCC) Expected: 10/25/2023, Expires: 01/24/2024[facility] Work Phone: Comment on above:Expected: 10/25/2023, Expires: 01/24/2024Start: 10-25-2023 End: 09-91-2607ZGP COMPLETEECG COMPLETE ECG Routine Non-rheumatic mitral regurgitation Persistent atrial fibrillation (HCC) Non-ischemic cardiomyopathy (HCC) Chronic HFrEF (heart failure with reduced ejection fraction) (HCC) Ex pected: 10/25/2023, Expires: 09/26/2024[facility] Work Phone: Comment on above:Expected: 10/25/2023, Expires: 09/26/2024Start: 10-10-2023 End: 39-03-3225Qyrva metabolic 2000 panel - Serum or PlasmaBASIC METABOLIC PNL Lab Routine Non-rheumatic mitral regurgitation Persistent atrial fibrillation (H CC) Non-ischemic cardiomyopathy (HCC) Chronic HFrEF (heart failure with reduced ejection fraction) (HCC) Expected: 10/10/2023 (Approximate), Expires: 01/09/2024 [facility] Work Phone: Comment on above:Expected: 10/10/2023 (Approximate), Expires: 01/09/2024Start: 10-10-2023 End: 39-34-3541SPW COMPLETEECG COMPLETE ECG Routine Non-rheumatic mitral regurgitation Persistent atrial fibrillation (HCC) Non-ischemic cardiomyopathy (HCC) Chronic HFrEF (heart failure with reduced ejection fraction) (HCC) Ex pected: 10/10/2023 (Approximate), Expires: 09/26/2024[facility] Work Phone: Comment on above:Expected: 10/10/2023 (Approximate), Expires: 09/26/2024Start: 10-06-2023 End: 25-28-4452Vrzastg encounter mjabgmosa13/23/2024 1:00 PM EST Office Visit NOM[facility] MONIQUE QUEZADA [address] [place] [place] [address] Peggy Nazario MD [address] [place] [address] NOMBenitez AMAYA FMStart: 09-26-2023 End: 94-41-8898Jusld metabolic 2000 panel - Serum or PlasmaBASIC METABOLIC PNL Lab Routine Non-rheumatic mitral regurgitation Persistent atrial fibrillation (H CC) Non-ischemic cardiomyopathy (HCC) Chronic HFrEF (heart failure with reduced ejection fraction) (HCC) Expected: 09/26/2023, Expires: 12/26/2023[facility] Work Phone: Comment on above:Expected: 09/26/2023, Expires: 12/26/2023Start: 37-33-2298Gxarwum Directive DiscussionAdvance Directive DiscussionDiley Ridge Medical Centertart: 68-78-3793Ycrvnzvpyo Health ScreeningBehavioral Health ScreeningDiley Ridge Medical Centertart: 28-00-3885Qewfmqfxhu Assessment Depression AssessmentDiley Ridge Medical Centertart: 55-96-5741Cknxl-19 Vaccine ( season)Covid-19 Vaccine ( season)[facility]art: 38-18-4790Ibxrqirte vaccinationInfluenza Vaccine (#1)[facility]art: 07-34-4363RWR Vaccine (1 - 1-dose 75+ series)RSV Vaccine (1 - 1-dose 75+ series) [facility]: 58-40-7033Kqtvkws Directive DiscussionAdvance Directive DiscussionDiley Ridge Medical Centertart: 01-51-6146Ghsohcqxrt AssessmentDepression AssessmentDiley Ridge Medical Centertart: 89-53-5770VinskrdsnacPocseixdyqiLaanyxjef ClinicStart: 36-14-4573Vfdunaavrr Cancer ScreeningColorectal Cancer Screening [facility]ertart: 90-86-7275Kfnnsucog for malignant neoplasm of colon [facility]: 33-31-9627Wetp Density ScreeningBone Density Screening [facility]ertart: 63-01-7689Cydajolfzamc Vaccine: 65+ (1 - PCV)Pneumococcal Vaccine: 65+ (1 - PCV)[facility]art: 42-55-1597Gusgavzdrllw Vaccine: 65+ (1 of 1 - PCV)Pneumococcal Vaccine: 65+ (1 of 1 - PCV)[facility]art: 38-44-0111Ggqsttbrm for osteoporosisBone Density ScreeningC[facility] Clinic [facility] Start: 38-69-5917OLU Vaccine (1 - 1-dose 60+ series)RSV Vaccine (1 - 1-dose 60+ series)[facility]: 48-67-9503Cwnuqjma Vaccine (1 of 2)Shingrix Vaccine (1 of 2)[facility]: 35-70-1467Egzepowfk (FIT-DNA)Cologuard (FIT-DNA)[facility]art: 43-30-2390JE ColonographyCT Colonography [facility]art: 75-84-3268Ipgabcvz ScreeningDiabetes ScreeningDiley Ridge Medical Centertart: 49-87-3514Wewza Occult BloodFecal Occult BloodCleveland Clinic [facility] Start: 72-41-0049Tljsc 1996 panel - Serum or PlasmaLipid ScreeningDiley Ridge Medical Centertart: 86-73-2128Byzfg panelLipid ScreeningD[facility] Ridge Medical Centertart: 57-24-9729Qmfwpvymf for malignant neoplasm of colonDiley Ridge Medical Centertart: 70-37-5302GrvqryaplsmrwJwfbtzftumblhEfnucwooz ClinicStart: 1967 Pneumococcal Vaccine: 65+ Years (1 of 2 - PCV)Pneumococcal Vaccine: 65+ Years (1 of 2 - PCV)[facility] HealthcareStart: 77-15-4255Mfkzii PCP Team Chronic Disease VisitAnnual PCP Team Chronic Disease VisitDiley Ridge Medical Centertart: 10-41-5186HV Controlled (<130/80)BP Controlled (<130/80)[facility]ertart: 1966 Depression ScreeningDepression ScreeningD[facility] Ridge Medical Centertart: 1966 Hepatitis C ScreeningHepatitis C ScreeningD[facility] Ridge Medical Centertart: 1966 Hepatitis C screeningHepatitis C ScreeningD[facility] Ridge Medical Centertart: 1954 Pneumococcal Vaccine: 65+ Years (1 - PCV)Pneumococcal Vaccine: 65+ Years (1 - PCV)[facility] HealthcareStart: 29-30-3922Growyhbgnlsn Vaccine: 65+ Years (1 of 2 - PCV)Pneumococcal Vaccine: 65+ Years (1 of 2 - PCV)[facility] HospitalStart: 58-12-1295Lwkci-19 Vaccine (#1)Covid-19 Vaccine (#1)[facility]: 36-93-6526Pejqsjnnp for malignant neoplasm of colonNOMS Healthcare CystourethroscopyCYSTO.PANENDO Procedures Routine Feeling of incomplete bladder emptying Stricture of female urethra, unspecified stricture type Ordered: 09/26/2023[facility] Work Phone: comment on above:Ordered: 09/26/2023ilat female urethra w/suppository&/instlj iniURETHRAL DILATION(FEMALE) Procedures Routine Stricture of female urethra, unspecified stricture type Feeling of incomplete bladder emptying Ordered: 09/24/[address] [place] [address] Work Phone: comment on above:Ordered: [address] [place] [address] Immunizations Immunization DateImmunizationNotesCare BstxtxxrWshhcjtn34-21-8475pywsonr toxoid, reduced diphtheria toxoid, and acellular pertussis vaccine, adsorbedPeggy Nazario MD Work Phone: [facility] HospitalBbxjnrjkrd08-25-1925ufxxkgf and diphtheria toxoids, adsorbed, preservative free, for adult use (5 Lf of tetanus toxoid and 2 Lf of diphtheria toxoid)Peggy Nazario MD Work Phone: [facility] HospitalHkpdztqqjk76-24-7072yfacrqdmop, tetanus toxoids and pertussis vaccinePeggy Nazario MD Work Phone: noHCA [facility] DivisionNygamxkwjl03-27-6796ehvhnosvru and tetanus toxoids, adsorbed for pediatric usePeggy Nazario MD Work Phone: [facility] HospitalNEGATED: Highlighted row has not occurred!61-52-2624xnpzduiji virus vaccine, unspecified formulationJohan HENRIQUEZ [facility] Payers DatePayer CategoryPayerPolicy [id number] Member Subscriber Plan / Payer (Effective 2016-Present) Name: Harjit Asencio I Relation to Subscriber: Self Name: Harjit Asencio I Payer ID: Catherine file Group ID: [id number] Type: Not on file Address: [facility] [id number] [place] [id number] .2.840.914670.1.13.159.2.7.3.12591[id number] [id number] [id number] [id number] 2.16.840.1.304305.3.57[id number] 2.840.1.975513.3.57[id number] 2.16840.1.191648.3.57[id number] 2.840.1.284265.3.579.[id number] 2.840.1.476218.3.57[id number] 2.840.1.230813.3.57[id number] 2.840.1.353679.3.579.2.64865-41-0550Wctzvbs79300118 2.840.1.469079.3.579.2.[id number] 2.840.1.782482.3.579.2.7[id number] 2.840.1.798312.3.579.2.38658-81-0824Cuqpgxh18810926 2.16840.1.393819.3.579.[id number] 2.16840.1.807332.3.579.2.26667-56-6942Swcyflf64862215 2.16840.1.698136.3.57[id number] 2.16840.1.684347.3.579.[id number] 2.16840.1.703025.3.579.[id number] 2.16840.1.073441.3.57[id number] 2.160.1.333537.3.579.[id number] 2.0.1.219871.3.57[id number] 2.0.1.060907.3.579.2.688146-97-3281Lyiryyz98203961 2.840.1.959884.3.579.2.211994-41-1777Jmfvabz58758814 2.0.1.729461.3.579.2.039064-14-3877Zxgrrrq25329288 2.0.1.326395.3.579.2.706889-01-0034Ufcuvey2375524 2.0.1.631676.3.579.2.581268-18-3297Tpcxgdv1033176 2.0.1.986749.3.579.2.044427-42-2097Dwioyhp2754368 2.840.1.033043.3.579.2.772435-74-0737Etracdq7563114 2.16840.1.665556.3.579.2.307847-83-8856Bcrnvlc4994624 2.840.1.540606.3.579.2.086438-47-3892Lcvzhxn1569845 2.0.1.073582.3.579.2.143006-39-2056Flpswyf9689121 2.840.1.361329.3.579.2.734960-46-9049Yiidsjg1138806 2.0.1.255473.3.579.2.1259 Social History DateTypeDetailFacilityStart: 02-23-2021 End: 02-36-1961Cdrwcfg smoking statusEx-smoker (finding)[facility] HospitalComment on above:DeniesStart: 07-08-2020 End: 41-57-1182Uml Assigned At BirthFeSelect Medical [facility] Hospital, AvonTobacco smoking statusNeverToledo HospitalComment on above:DeniesHistory of tobacco useCurrent smokerDiley Ridge Medical Centertart: 10-24-2017 End: 09-35-2720Hmyfsxz use and exposureSmokeless tobacco non-userLakeland ClinicStart: 49-36-9637Dkymfmi intakeCurrent drinker of alcohol (finding) [facility]ertart: 07-08-2020 End: 24-72-7651Dojfodz of Social functionNOLA HealthcareStart: 09-26-2012 End: 41-18-3763Kzqyzft CommentQuit 1997. social smoker mostlyC[facility] Start: 09-82-3494Sng Assigned At BirthNot on fileCleveland Clinic Akron GeneralHistory of tobacco useCigarette SmokerNOLA HealthcareStart: 09-12-2023 End: 16-23-4765Ukjkrvh intakeEx-drinker (finding)[facility] HealthcareHow often to you have a drink containing alcohol?Monthly or lessNOMS HealthcareHow many standard drinks containing alcohol do you have on a typical day?1 or 2NOMS HealthcareHow often do you have 6 or more drinks on 1 occasion?NeverNOMS HealthcareStart: 22-69-0750Qdqqnkl Commentcaffeine: 1-2 cups/dayNOLA HealthcareNEGATED: Highlighted rowStart: NINFHistory of tobacco usePassive smokerNOMS Healthcare Goals DatePatient GoalDesired Activity/StatePersonal health goal Functional Status LffhWekxdxrzzjMygwjqFmysmymq61-71-4930Ecqrdvp Health Questionnaire 2 item (PHQ- 2) [Reported][facility] [id number] StatusN/[facility]02-22-2024Functional StatusN/[facility]02-04-2024 Functional StatusN/[facility]01-30-2024Functional StatusN/A [facility]12-08-2023[facility]2023 Functional StatusN/[facility]11-20-2023Functional StatusN/A [facility]11-19-2023[facility]-2023Functional StatusN/[facility]09-13-2023 Functional StatusN/[facility] 08-17-2027Vgexgtwvxh StatusN/[facility]06-17-2023Functional StatusN/[facility]03-08-2023Functional StatusN/[facility]02-20-2023Functional StatusN/[facility]01-19-2023[facility] Status[facility]31-2022[facility] Status[facility]07[facility]21-2022 Functional StatusN/[facility] [id number] StatusN/[facility] Clinical Notes 12-24-2021 to 05-28-2025 Note Date & [id number] Note05/28/25 1443 Admission Assessment Questions Verify insurance with patient [...] Interested Does the patient have a case resource manager assigned to them through their insurance? [...] link and activate MyChart? 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 Yes Fat restriction: Heart Healthy/HTN, CABG,Stroke, (2gNA, low fat, low cholesterol) 05/27/25 17405/27/25 1743 Special Kitchen Request Once Comments: Harisiyarosa salmon Mashed potatoes and gravy Chocolate ice [...] of Nutrition and Dietetics (AND) and the [place] Society of Enteral and Parenteral Nutrition (ASPEN). [...] To reach the Clinical Dietitian, please utilize [employer] chat Monday-Monday from 8AM-4PM or call extension [phone]. For weekends (Monday-Monday) and holidays, the Clinical Dietitian can be reached via pager ([phone]) from 9AM-3PM. The Clinical Nutrition Department is un (more content not included)...[facility]10-15-2025 Note Attestation signed by Gabe Martinez MD [...] cervical adenopathy noted Ski (more content not included)...[facility]10-14-2025 NotePatient: Harjit Asencio Procedure Summary Date: 05/27/25 Room / Location: [facility] / [facility] (Cath) Anesthesia Start: 09 Anesthesia Stop: 1329 Procedure: Transcatheter Fhhz-Ys-Rbpc Repair (TriClip) Diagnosis: Chronic systolic heart failure [...] were no known notable events for this encounter.[facility]10-14-2025 NoteSpiritual Care Note Patient name: Harjit Asencio Age: 75 y.o. Room: [facility] VASCULAR POOL/NONE 05/27/25 1500 Clinical Encounter Type [...] in those relationships.) Pastoral Intervention Emotional support;Spiritual support;[place] (Provided caring listening presence and support.) [facility]10-14-2025 NoteError [facility]10-14-2025 NoteAirway Date/Time: 05/27/2025 9:23 AM Reason: elective General Information and Staff Patient location during procedure: OR Anesthesiologist: Tushar Hoover MD Resident/STAPLE PROCESSING MACHINE OPERATOR/CHERISE: Roque Moser MD Performed: resident/STAPLE PROCESSING MACHINE OPERATOR/CHERISE Patient Condition Indications for airway management: anesthesia [...] approach: 1 Number of other approaches attempted: 0UnLutheran Hospital 05-27-2025 NoteArterial Line: Date/Time: 05/27/2025 8:50 AM An arterial [...] one attempt on left wrist. Staffing Performed: resident/STAPLE PROCESSING MACHINE OPERATOR/CAA and anesthesiologist Anesthesiologist: Tushar Hoover MD Resident/STAPLE PROCESSING MACHINE OPERATOR: Johan Gill MD Other anesthesia staff: Roque Moser MD Performed by: Johan Gill MD Authorized by: Tushar Hoover MDParkview Health Bryan Hospital10-14-2025 Note Pt in pre-op bay 09. Pt displays understanding of instructions to remove all clothing and personal items. Pt informed anesthesia and physician will be at the bedside to discuss procedure prior to going back at scheduled procedure time. All questions answered at this time.[facility] 05-27-2025 NotePatient: Harjit Asencio Procedure Information Date/Time: 05/27/25 5269 Procedure: Transcatheter tricupsid valve repair - this is for Triclip, with diagnosis of severe tricuspid regurgitation Location: [facility] / [facility] (Cath) Providers: Rafael Vega MD [...] discussed with attending and resident. Additional Equipment RequestsParkview Health [facility] Hospital10-06-2025 Note [place] Cardiology - [facility] Subjective Harjit Asencio is a [...] removed. Patient would like to go to [facility] for cardiac rehab. 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 The plan was to add Jardiance. There is note of her to being evaluated by CT surgery Dr. Sorto regarding candidacy for cardiac surgery and she was deemed high risk. She was also evaluated at [facility] cardiothoracic surgery. Initial workup for her [...] mmHg. She then und (more content not included)...[facility] 05-14-2025 History of Present illness Narrative* Hannah Brian MD - 05/14/2025 11:40 AM [...] sx to monitor for. 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 diff infection began. Do this only astold by your health care provider. ??? Taking certain antibiotics to stop C. diff growth. ??? Taking stool from a healthy person and placing it into your colon (fecal transplant). This may be done if the infection keeps coming back. ??? Having surgery to remove the infected part of the colon. This is rare. Follow these instructions at home: Medicines ??? Take ofkb-nzj-hlpufrz and prescription medicines only as told by [...] a long-term care facility, follow guidelines for wearinga gown, gloves, or other protective equipment. ??? If possible, avoid contact with people who have diarrhea. ??? Use a separate bathroom if you are sick and live with other people, if p (more content not included)...[facility]09-11-2025 NoteProgress Note - Pharmacy Patient's stool sample resulted positive for C. difficile. The results were discussed with the ED PA and a prescription for vancomycin 125 mg PO 4 times daily for 10 days was sent to the patient's pharmacy. The patient was contacted, informed of the results, educated on the need for oral vancomycinand instructed to complete the full 10 days of therapy. The patient requested the results be faxed to her PCP Dr Brian. Patient verbalized understanding and all other questions were answered.[facility]09-11-2025 NoteI sent you a letter via email. Let me know if you were able to print/send. Thanks![facility]09-08-2025 History of Present illness Narrative* Hannah Brian MD - 04/21/2025 3:00 PM EDT Images from the original note [...] Flowsheet Row Patient Outreach from 04/21/2025 in [facility] with Loida Nathan LPN Hospital Information ED, Hospital or Snf Facility Discharge? 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 Encouraged follow up with specialists as discussed Follow up if symptoms worsen or fail to improve. documented in this [facility]09-06-2025 Telephone encounter Note* Telephone Encounter - Acacia Davisson - 04/19/2025 7:12 PM EDT Per Hannah Brian MD Just talked to him. Thank you! [facility] HospitalKysuyhtncu35-13-1965 Miscellaneous Notes* Telephone Encounter - Acacia Erick - 04/19/2025 7:12 PM EDT Per Hannah Brian MD Just talked to him. Thank you! * Telephone Encounter - Acacia Suarez - 04/19/2025 2:52 PM EDT Harjit Asencio is a 75 y.o. female . [facility] [place] because pt came in today with abdominal pain and diarrhea. DR Jayson Calloway is requesting consult with Dr Brian. Please call [phone] . documented in this [facility]09-06-2025 NoteED Patient Education Note Gastroenterology Abdominal Pain, Adult [...] these instructions at home: Medicines ??? Take bwqz-bws-qsysrug and prescription medicines only as told by [...] provider. Document Revised: 05/17/2023 Document Reviewed: 05/17/2023 [employer]Modabound Patient Education ? 2023 [employer] 04-19-2025 Telephone encounter Note* Telephone Encounter - Acacia Suarez - 04/19/2025 2:52 PM EDT Harjit Asencio is a 75 y.o. female . [facility] called because pt came in today with abdominal pain and diarrhea. DR Jayson Calloway is requesting consult with Dr Brian. Please call [phone] . 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 She [...] her recent visit with cardiology at [facility] on 09/26/2023 valsartan was stopped and low-dose lisinopril 5 mg once daily was added. The plan was to add Jardiance. There is note of her to being evaluated by CT surgery Dr. Sorto regarding candidacy for cardiac surgery and she was deemed high risk. She was also evaluated at [facility] cardiothoracic surgery. Initial workup for her mitral valve disease was started. Spironolactone was changed to half tablet twice a day instead of 1 tablet once a day. She was also recommended to start taking digoxin at night instead of the morning. At visit with nm on 10/16/2023 I increased her carvedilol to 6.25 mg twice daily. I asked for a cardiopulmonary excise test. After visit with nm on 10/30/2023 I added Jardiance 10 mg daily to optimize GDMT for systolic heart failure. I also started her on amiodarone to attempt rhythm control. Following that she stopped both medications due to side effects. After visit with nm on 12/01/2023 I referred her to [facility] [...] Eliquis. She has under (more content not included)...[facility] 02-10-2025 NoteUT Cardiology - [facility] Subjective Harjit Asencio is a 74 y.o. year old female patient being seen for 30 day s/p MitraClip. Had echo 02/07/2025. C/o hematuria. 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 The plan was to add Jardiance. There is note of her to being evaluated by CT surgery Dr. Sorto regarding candidacy for cardiac surgery and she was deemed high risk. She was also evaluated at [facility] cardiothoracic surgery. Initial workup for her mitral valve disease was started. Spironolactone was changed to half tablet twice a day instead of 1 tablet once a day. She was also recommended to start taking digoxin at night instead of the morning. At visit with nm on 10/16/2023 I increased her carvedilol to [...] arm, Patient Position: S (more content not included)...[facility]06-12-2025 NotePatient is here today for a follow up S/P mitral clip. Patient state she is doing good, she feels like she is getting blood to her body. Patient denies any cardiac symptoms at this time. Patient would like to talk about the Eliquis due to having blood in urine, its making here feel like she has a UTI. 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 No changes in meds at this time Encouraged continued follow up with specialists Follow up if symptoms worsen or fail to improve. documented in this encounterSaint John's Aurora Community HospitalMfjvpxrygk15-28-1909 NotePatient: Harjit Asencio Procedure Summary Date: 01/14/25 Room / Location: [facility] / [facility] (Cath) Anesthesia Start: 830 Anesthesia [...] were no known notable events for this encounter.[facility]06-03-2025 NotePatient intubated under observation by anesthesia [facility]06-03-2025 NotePatient: Harjit Asencio Procedure Information Anesthesia Start Date/Time: 01/14/25 0831 Procedure: Transcatheter mitral valve repair - case for general anesthesia approved by Dr Callejas NPCR Location: [facility] 3 / [facility] (Cath) Providers: Rafael Vega MD [...] discussed with attending and resident. Additional Equipment RequestsUnLutheran Hospital06-03-2025 Note Arterial Line: Date/Time: 01/14/2025 9:04 AM [...] no complications. Additional notes: [place] Staffing Performed: resident/STAPLE PROCESSING MACHINE OPERATOR/CAA Anesthesiologist: Lobo Machado MD Resident/STAPLE PROCESSING MACHINE OPERATOR: Margaret Briceno MD Performed by: Micheline Mendoza MD Authorized by: Lobo Machado MDParkview Health [facility] Hospital06-03-2025 NoteAirway Date/Time: 01/14/2025 8:52 AM Urgency: elective Airway not difficult General Information and Staff Patient location during procedure: OR Anesthesiologist: Lobo Machado MD Resident/STAPLE PROCESSING MACHINE OPERATOR/CAA: Margaret Briceno MD Performed: resident/STAPLE PROCESSING MACHINE OPERATOR/CAA Indications and Patient Condition Indications [...] approach: 1 Number of other approaches attempted: 0[facility] 01-13-2025 Telephone encounter Note* Telephone Encounter - Rickie Aviles NP - 01/13/2025 11:14 AM EDT Rx sent, HR OOO. OARRS appropriate. [facility] [id number] Miscellaneous Notes* Telephone Encounter - Rickie Aviles NP - 01/13/2025 11:14 AM EDT Rx sent, HR OOO. OARRS appropriate. * Telephone Encounter - Ziggy Juarez MA - 01/13/2025 11:06 AM EDT HR OOO * Telephone Encounter - Alisha Wilson - 01/13/2025 10:39 AM EDT Pt needs refill on Lorazapam sent to [facility]. documented in this encounterSaint John's Aurora Community HospitalEyfqcwminq12-58-9124 Telephone encounter Note* Telephone Encounter - Ziggy Juarez MA - 01/13/2025 11:06 AM EDT HR OOO [facility] HospitalQiupynxxey70-19-9302 Telephone encounter Note* Telephone Encounter - Ailsha Wilson - 01/13/2025 10:39 AM EDT Pt needs refill on Lorazapam sent to [facility]. [facility] HospitalGkxhgehpzg15-52-1841 History of Present illness Narrative* Hannah Brian MD - 01/07/2025 3:20 PM EDT Images from the original note [...] in regimen. Continue to follow w/ specialists [facility] current use of anticoagulant - Continue to monitor for abnormal bruising or bleeding Primary hypertension (CMS/HCC) Stable, continue to monitor. No change in regimen. Anxiety Stable, continue to monitor. No change in regimen. Panic attack (CMS/HCC) Stable, continue to monitor. No change in regimen. documented in this encounterSaint John's Aurora Community HospitalCvpdzmgmoq68-66-3718 NoteI have reviewed this patient's medical record, cardiac imaging. she has severe secondary (functional) mitral regurgitation, chronic heart failure with reduced ejection fraction and has persistent symptoms NYHA class III despite maximally tolerated guideline-directed medical therapy. I think that she is a good candidate for and would benefit from transcatheter tfaa-nn-zbow repair. 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 The plan was to add Jardiance. There is note of her to being evaluated by CT surgery Dr. Sorto regarding candidacy for cardiac surgery and she was deemed high risk. She was also evaluated at [facility] cardiothoracic surgery. Initial workup for her mitral valve disease was started. Spironolactone was changed to half tablet twice a day instead of 1 tablet once a day. She was also recommended to start taking digoxin at night instead of the morning. At visit with nm on 10/16/2023 I increased her carvedilol to 6.25 mg twice daily. I asked for a cardiopulmonary excise test. After visit with nm on 10/30/2023 I added Jardiance 10 mg daily to optimize GDMT for systolic heart failure. I also started her on amiodarone to attempt rhythm control. Following that she stopped both medications due to side effects. After visit with nm on 12/01/2023 I referred her to [facility] [...] and are negativ (more content not included)... [facility]05-06-2025 History of Present illness Narrative* Hannah Brian MD - 12/17/2024 3:20 PM EDT Images from the original note [...] sx to monitor for. documented in this encounterSaint John's Aurora Community [id number] History of Present illness Narrative* Hannah Brian MD - 11/25/2024 11:00 AM EDT Images from the original note [...] and concerning sx to monitor for. 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 No change in regimen. Continue to follow w/ specialists Primary hypertension (CMS/HCC) Stable, continue to monitor. No change in regimen. 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 No change in regimen. Continue to follow w/ cardiology Primary hypertension (CMS/HCC) Stable, continue to monitor. No change in regimen. Continue to follow w/ cardiology documented in this encounterSaint John's Aurora Community HospitalMvuuqfihpz30-96-4389 NoteUT Electrophysiology Consult Note [place] Cardiology [facility] Reason for visit: Afib+ CMP 10/22/24 Patient underwent a SOCIAL MEDIA CAMPAIGN MANAGER-P implant on 02/28/2024 when a SOCIAL MEDIA CAMPAIGN MANAGER-P was placed in a submuscular fashion with [...] she has done very well since her SOCIAL MEDIA CAMPAIGN MANAGER. Device check performed on 07/30/2024 shows patient being BiV paced 98% of the time 02/22/24 Pt here to discuss about SOCIAL MEDIA CAMPAIGN MANAGER-P Prior HPI: Harjit Asencio is a 74 [...] and subsequently had a visit with [facility] where evaluation was being done for surgical correction of mitral valve but was noted to have high risk and hence deferred. She also had an evaluation for the same at [place] surgery and thereafter had seen in [...] Tobacco Use: Medium Risk (10/08/2024) [facility] from [facility] Patient History Smoking Tobacco Use: Former Smokeless Tobacco Use: Never Passive Exposure: Never Alcohol Use: Not At Risk (08/05/2024) Re[facility] from [facility] AUDIT-C Frequency of Alcohol Consumption: Never Average Number of Drinks: Patient does not drink Frequency of Binge Drinking: Never Financial Resource Strain: Not on file Food Insecurity: Not on file Transportation Needs: Not on file Physical Activity: Not on file Stress: Not on file Social Connections: Not on file Intimate Partner Violence: Unknown (10/05/2023) [place] Safety & Environment Fear of Current or Ex-Partner: Not on file Emotionally Abused: Not on file Physically Abused: Not on file Sexually Abused: Not on file Physically or Sexually Abused: Not on file Depression: Not at risk (08/05/2024) [facility] from [facility] PHQ-2 Patient Health Questionnaire-2 Score: 0 [...] tablet 3 LORazepam (Ativan) (more content not included)...[facility]02-25-2025 History of Present illness Narrative* JOSE ALBERTO Pak - 10/08/2024 2:39 PM ESTAssociated Problem(s): Panic attack (CMS/HCC) Stable Patient will return in [address] Brian to refill meds Encouraged watching diet and restart exercising * JOSE ALBERTO Pak - 10/08/2024 1:00 PM EST Images from the original note [...] care reminders to display for this patient. * JOSE ALBERTO Pak - 10/08/2024 1:00 PM EST Images from the original note [...] carvedilol dosage, which was prescribed by her english composition teacher. She has been experiencing shortness of breath, particularly during physical activities such as dancing, and suspects that the medication may be causing a decrease inher blood pressure. She also reports irregular heart rhythms and night terrors, which she attributes to the carvedilol. She has been eating a lot of nuts and sweets, which she believes are contributing to her weight gain. She has been trying to cut back on her intake of these foods, but it has beendifficult. She has been trying to exercise at home, but it is not the same as dancing. She has beenurinating frequently, which she attributes to the spironolactone. [...] and plans to discuss this with her english composition teacher during her upcoming appointment. She has been [...] and plans to discuss this with her english composition teacher during her upcoming appointment. She has been feeling anxious and aggravated about her surgery and the whole situation. She has beeneating a lot of nuts, which she believes are not good for her bowels. She has been trying to cut back on her intake of nuts. She has been feeling worse since the carvedilol dosage was increased and plans to discuss this with her english composition teacher during her upcoming appointment. She has been [...] dosage of carvedilol was increased by her english composition teacher. Symptoms include shortness of breath, irregular heart rhythm, and night terrors. Her blood pressure is currently stable. She is advised to discuss these symptoms with her english composition teacher during her upcoming appointment next month. 2. [...] activity, even at home, is recommended to helpmanage her weight. Assessment/Plan Problem List Items Addressed This Visit Atherosclerosis of aorta (CMS/HCC) Atrial fibrillation, persistent (HCC) (CMS/HCC) Primary hypertension (CMS/HCC) - Primary There are no preventive care reminders to display for this patient. documented [facility] this [facility]02[facility]07[facility]25 Telephone encounter Note* Telephone Encounter - Erik Byrnes - 09/20/2024 3:06 PM EST Pt needs a refill on Ativan Please send to [facility] [id number] Miscellaneous Notes* Telephone Encounter - Erik Byrnes - 09/20/2024 3:06 PM EST Pt needs a refill on Ativan Please send to [facility] History of Present illness Narrative* Rickie Aviles NP - 08/12/2024 4:00 PM EST Harjit Asencio is a 74 y.o. female [...] a week ago, which she believes was aside effect of carvedilol. She reports no concerns for sexually transmitted infections. She reportspain during urination, which she describes as a burning sensation. She has been under the care of aurologist, who performed a bladder stretching procedure and [...] Negative - 160(16) ++++ mg/dL Negative Specific [place], UA 1 - 1.03 1.005 Blood, UA [...] persistent (HCC) (CMS/HCC) Continue current medication regimen. FPC current use of anticoagulant Continue current medication regimen. BMI 22.0-22.9, adult Maintain a healthy weight. Please Note: Portions of this chart may have been created using voice recognition software. Occasional wrong-word or sound-like substitutions may have occurred due to inherent limitations of the voice recognition software. Please read the chart carefully and recognize, using context, where the sub stitutions have occurred. documented in this encounterSaint John's Aurora Community [id number] History of Present illness Narrative* Martita Newsome MA - 08/05/2024 2:45 PM EST Images from the original note were not included. Stephan Boo, DO Obstetrics and Gynecology Harjit Asencio 1950 08/05/24 [id number] Yearly Wellness Exam Chief Complaint Patient presents with Gynecologic Exam Medicare off year. LMP: MIR BS 1983 HRT: None Last pap 07-24-23 neg. [place]05[place] [facility] 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 ABDOMEN: soft, nontender, nondistended, no masses palpable. BACK: no costovertebral angle tenderness, no obvious scoliosis/kyphosis. 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 documented in this encounterSaint John's Aurora Community [id number] NotePatient here for follow up AV node ablation with Dr. Yao on 06/10/2024. Says she has chest pain and says it's heartburn . Review of Systems Constitutional: Positive for malaise/fatigue. Cardiovascular: Positive for chest pain ( heartburn ) and dyspnea on exertion (intermittent). Hematologic/Lymphatic: Bruises/bleeds easily. Gastrointestinal: Positive for heartburn. Psychiatric/Behavioral: The patient is nervous/anxious. 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 (more content not included)... [facility]11-18-2024 History of Present illness Narrative* JOSE ALBERTO Pak - 07/01/2024 3:30 PM EST Images from the original note [...] gained weight since her procedure, which she believesis due to a change in her diet. She is concerned about potential fluid retention but notes that herlegs do not appear swollen. She has been experiencing increased hunger and has been eating more frequently, even waking up at night to eat. She has an appointment with a dental lab technician tomorrow. She has been taking spironolactone, which has increased her urine output, but she has reduced her dose to half since December 2023. She is interested in having her potassium levels checked due to past issues and is also concerned about her kidney function. She has been following a low-sodium diet, consuming lessthan 2000 mg per day. She has a [...] research. She will follow up with the dental lab technician and nurse practitioner tomorrow to check her progress. 2. Bladder procedure follow-up. She had a bladder procedure 8 months ago and a follow-up last week where no further intervention was needed. She reports occasional discomfort and changes in urine appearance. A urine culture will besent to ensure there is no infection. She is advised to start Kegel exercises to strengthen her pelvic floor. 3. Weight gain. She is concerned about sudden weight gain after her procedure. Her blood pressure and heart rate are good, and there are no signs of fluid retention. She is advised to monitor her weight and maintaina balanced diet. 4. Medication management. She is currently off digoxin and has reduced her spironolactone dose to half since December due to excessive urination and dehydration. She will discuss the potential discontinuation of carvedilol with her nurse practitioner tomorrow due to its side effects. 5. Health Maintenance. A comprehensive metabolic panel will be ordered to check her kidney function, potassium levels, andother electrolytes. She is advised to maintain adequate hydration. Follow-up Return on Monday for blood tests. Assessment/Plan Problem List Items Addressed This Visit None Visit Diagnoses Dysuria Relevant Orders POCT Urinalysis dipstick (Completed) Comprehensive metabolic panel Urine culture There are no preventive care reminders to display for this patient. documented in this encounterSaint John's Aurora Community [id number] NoteLima City Hospital11-14-2024 History of Present illness Narrative* Raphael Goldsmith MD - 06/27/2024 11:42 AM EST Harjit Asencio is a 74 year old female history of sigmoid colectomy (1996), NICM, HTN, Afib w RBR, MR,TR, HF, and urethral stricture s/p recent dilation 04/2023 and repeat dilation to 26 Fr in office on10/16/2023. Here today for 6 month follow up regarding urinary hesitancy, incomplete voiding. Patient states that she has been having gradually worsening symptoms of urinary retention and abdominal straining to urinate, similar to the quality of symptoms she had prior to her previous urethraldilations. Of note patient is taking spironoloactone for [...] the office setting using lidocaine 2% jelly. Thefindings were as follows: Urethra: normal, no lesions, [...] the case and management of the patient's carewith the resident. @POCVISITLIST@ Signature: Raphael Goldsmith MD Date: June 27, 2024 Time: 11:54 AM Raphael Goldsmith MD [facility]Urology [facility] [place] [facility] Bulmaro aleman Krista documented in this encounterCleveland Clinic [facility]11-14-2024 Nurse Note* Clarice Gardiner MA - 06/27/2024 10:59 AM EST PROCEDURE NURSE ASSESSMENT Patient ID with two(2)identifiers [...] patient verbalizes understanding: yes Clarice Gardiner MA [facility]11-14-2024 Instructions* Patient Instructions* Clarice Gardiner MA - 06/27/2024 10:59 AM EST [facility] DR. RAPHAEL GOLDSMITH AFTER YOUR CYSTOSCOPY You have undergone a cystoscopy. Your doctor has inserted a scope into your urinary bladder throughyour urethra to view the inside of your [...] office: Dr. Raphael Goldsmith M.D., Office PH#: [phone] After 5 pm and on weekends: Call [phone] and ask for the urologist nitric acid concentrator operator. The doctor will need to know that you have hada cystoscopy and what symptoms you are having. documented in this encounterCleveland Clinic [facility]11-14-2024 Nurse Note* Clarice Gardiner MA - 06/27/2024 10:59 AM EST PROCEDURE NURSE ASSESSMENT Patient ID with two(2)identifiers [...] patient verbalizes understanding: yes Clarice Gardiner MA * Ashley Quiros MA - 06/27/2024 10:56 AM EST POST INSTRUCTIONS Cystoscopy Procedure DR. RAPHAEL GOLDSMITH [...] with drinking extra fluids. Please call the [facility] office at [phone], Monday-Monday, 8 am - 5 pm, with anyquestions you may have. Please ask to be transferred to the Urology nurses in the back office area. If you call after 5 PM or on the weekends, please call [phone], ask for the Urologist nitric acid concentrator operator. Thank You, Your Urology Team documented in this encounterCleveland Clinic [facility]11-14-2024 Nurse Note* Ashley Quiros MA - 06/27/2024 10:56 AM EST POST INSTRUCTIONS Cystoscopy Procedure DR. RAPHAEL GOLDSMITH [...] with drinking extra fluids. Please call the [facility]STA [facility]ACO[facility] office at [phone], Monday-Monday, 8 am - 5 pm, with anyquestions you may have. Please ask to be transferred to the Urology nurses in the back office area. If you call after 5 PM or on the weekends, please call [phone], ask for the Urologist nitric acid concentrator operator. Thank You, Your Urology Team [facility]10-28-2024 NoteAV NODE ABLATION PROCEDURE REPORT DATE OF PROCEDURE: [...] and subsequently had a visit with [facility] where evaluation was being done for surgical correction of mitral valve but was noted to have high risk and hence deferred. She also had an evaluation for the same at [facility] and thereafter had seen in [...] poor candidate for Afib ablation, she underwent SOCIAL MEDIA CAMPAIGN MANAGER-P on 02/28/24. She is here for AVN [...] 3. Continue anticoagulation. Patty Yao MD Cardiac Electrophysiology.[facility]10-28-2024 Note Patient: Harjit Asencio Procedure Information Date/Time: 06/10/24 1200 Procedure: AV node ablation - PC APPROVED Location: [facility] WHITE WORK CLEANER 1 EP / [facility] ([facility]) Providers: Patty Yao MD Clinical information reviewed: Allergies Meds OB Status Physical Exam Airway Mallampati: II TM distance: >3 FB Cardiovascular Dental Pulmonary Abdominal Anesthesia Plan ASA 3 CSE Anesthetic plan and risks discussed with patient. Use of blood products discussed with patient who. Additional Equipment RequestsParkview Health Bryan Hospital09-24-2024 Note [facility]09-24-2024 History of Present illness Narrative* Raphael Golsdmith MD - 05/07/2024 1:35 PM EDT [facility] FEMALE PELVIC MEDICINE AND RECONSTRUCTIVE SURGERY HISTORY OF PRESENT ILLNESS: Harjit Asencio is a 74 year old female history of sigmoid colectomy (1996), NICM, HTN, Afib w RBR, MR,TR, HF, and urethral stricture s/p recent dilation 04/2023 and repeat dilation to 26 Fr in office on10/16/2023. Here today for 6 month follow up regarding urinary hesitancy, incomplete voiding. Patient states that she has been having gradually worsening symptoms of urinary retention and abdominal straining to urinate, similar to the quality of symptoms she had prior to her previous urethraldilations. Of note patient is taking spironoloactone for [...] urethral dilations on 04/2023 and 10/2023 with symptomsof urinary retention gradually returning 1. Feeling of incomplete bladder emptying - ICD9: 788.21, ICD10: R39.14 -Patient without retention, feelings of urethral pain, plan for repeat urethral dilation in 2-3 months at [facility] in office -Plan to assess for atrophic vaginitis at time of urethral dilation due to patient concern for irritation around upper thigh/vagina Erika Ho MD I have personally performed a face to face diagnostic evaluation on this patient. My findings are as above. Raphael Goldsmith MD plan urethral dil per req documented in this encounterCleveland Clinic [facility]09-24-2024 Nurse Note* Nila Uriarte OCCA - 05/07/2024 1:19 PM EDT Post Void Residual done on patient with 0 cc residual volume remaining. notified. CARISSA Garvey [facility]09-24-2024 Nurse Note* Nila Uriarte OCCA - 05/07/2024 1:19 PM EDT Post Void Residual done on patient with 0 cc residual volume remaining. notified. CARISSA Garvey documented in this encounterCleveland Clinic [facility]05-10-2024 Telephone encounter Note * Telephone Encounter - Benitez Samuels APRN.CNP - 12/22/2023 1:49 PM EDT The following approved medication requests have been transmitted electronically. Requested Prescriptions Signed Prescriptions Disp Refills lisinopril (ZESTRIL) 10 mg tablet 45 tablet 0 Sig: take 1/2 tablet by mouth once daily Authorizing Provider: Benitez SAMUELS pantoprazole DR (PROTONIX) 40 mg tablet 90 tablet 0 Sig: take 1 tablet by mouth every day Authorizing Provider: Benitez SAMUELS APRN.CNP [facility]05-10-2024 Miscellaneous Notes* Telephone Encounter - Benitez Samuels APRN.CNP - 12/22/2023 1:49 PM EDT The following approved medication requests have been transmitted electronically. Requested Prescriptions Signed Prescriptions Disp Refills lisinopril (ZESTRIL) 10 mg tablet 45 tablet 0 Sig: take 1/2 tablet by mouth once daily Authorizing Provider: Benitez SAMUELS pantoprazole DR (PROTONIX) 40 mg tablet 90 tablet 0 Sig: take 1 tablet by mouth every day Authorizing Provider: Benitez SAMUELS APRN.DYER ASSISTANT documented in this encounterCleveland Clinic [facility]04-10-2024 Hospital Discharge instructions Patient Education 11/22/2023 20:40:30 Constipation, Adult, Byfq-ra-Dwhy Constipation, Adult Constipation is when a person [...] high in fat and sugar, such as: ?East Timorese fries. ?Hamburgers. ?Cookies. ?Candy. ?Soda. Drink enough fluid to keep your pee (urine) pale yellow. General instructions Exercise regularly or as told by your doctor. Try to do 150 minutes of exercise each week. Go to the restroom when you feel like you need to poop. Do not hold it in. Take myzf-hbe-lbhxqry and prescription medicines only as told by [...] keep your pee (urine) pale yellow. Take asbj-ywk-xnwgmel and prescription medicines only as told by your doctor. These include any fiber supplements. This information is not intended to replace advice given to you by your health care provider. Make sure you discuss any questions you have with your health care provider. Document Revised: 06/17/2020 Document Reviewed: 06/17/2020 [employer] Patient Education 2022 [employer]. Follow Up Care 11/22/2023 16:18:30 With:Snehal MCMAHON, Hannah De Leon Address: [place] [address]- When:11/25/2023 [facility]03-04-2024 Miscellaneous Notes* Telephone Encounter - Gloria Mendes - 10/16/2023 3:54 PM EST October 16, 2023 Patient Contact Number: [phone] Patient last seen within the last year: [...] days. Yes Gloria Mendes documented in this encounterCleveland Clinic [facility]03-04-2024 NoteLima [facility] Hospital03-04-2024 History of Present illness Narrative* Lia Ramirez CT - 10/16/2023 8:31 AM EST UNIVERSAL PROTOCOL / SAFETY CHECKLIST Procedure to [...] (optional for EMERGENT procedures): No specimen collected. Lia DAWSON Ramirez * Raphael Goldsmith MD - 10/16/2023 8:25 AM EST 73 year old with prior history of urinary symptoms. Incomplete emptying, intermittency, straining. Had urethral dilation elsewhere which helped. Wished to have another performed due to it helping jason [facility] NOTE / UNIVERSAL PROTOCOL / SAFETY CHECKLIST [...] the case and management of the patient's carewith the resident. @POCVISITLIST@ Signature: Raphael Goldsmith MD Date: October 16, 2023 Time: 11:18 AM documented in this encounterCleveland Clinic [facility]03-04-2024 NoteL[facility] Hospital03-04-2024 Nurse Note* Lia Ramirez CT - 10/16/2023 7:35 AM EST Actual procedure/procedure scheduled: Yes Performing provider/scheduled provider: Yes Patient was roomed in: Q9- 07 Medical Sales offered:Patient declines Patient arrived in the room [...] Education Session: None Instruction Provided To: Patient Web Site Admin Present: no Discipline: Nursing Learning Topic: SURVIVAL SKILLS: Symptom Management Patient Evaluation: Verbalizes understanding: Yes Supplemental Material Given: Written Material Instructed By DAWSON Farr In Department Urology . documented in this encounterCleveland Clinic [facility]02-22-2024 Hospital Discharge instructions Patient Education 10/05/2023 21:56:35 Constipation, Adult, Adyy-ui-Kpmi Constipation, Adult Constipation is when a person [...] high in fat and sugar, such as: ?East Timorese fries. ?Hamburgers. ?Cookies. ?Candy. ?Soda. Drink enough fluid to keep your pee (urine) pale yellow. General instructions Exercise regularly or as told by your doctor. Try to do 150 minutes of exercise each week. Go to the restroom when you feel like you need to poop. Do not hold it in. Take akot-ung-dndlrkk and prescription medicines only as told by [...] keep your pee (urine) pale yellow. Take xrch-xsk-ugbryts and prescription medicines only as told by your doctor. These include any fiber supplements. This information is not intended to replace advice given to you by your health care provider. Make sure you discuss any questions you have with your health care provider. Document Revised: 06/17/2020 Document Reviewed: 06/17/2020 [employer] Patient Education 2022 [employer]. 10/05/2023 21:56:35 Gastroesophageal Reflux Disease, Adult, Bqyc-lu-Ikaf Gastroesophageal Reflux Disease, Adult Gastroesophageal reflux (ZUNILDA) happens when acid from the stomach flows up into the tube that connects the mouth and the stomach (esophagus). Normally, food travels down the esophagus and stays in thestomach to be digested. With ZUNILDA, food and [...] powder, vinegar, hot sauces, and BBQ sauce. ?[place] fruit juices and citrus fruits, such as oranges, ronald, and limes. ?Tomato-based foods. These include red sauce, chili, salsa, and pizza with red sauce. ?Fried and fatty foods. These include donuts, greenlandic fries, potato chips, and high-fat dressings. ?High-fat [...] to any changes in your symptoms. Take feov-xzq-dnpicym and prescription medicines only as told by [...] and stomach acid move back up into theesophagus and cause symptoms or problems such as [...] provider. Document Revised: 02/08/2021 Document Reviewed: 02/08/2021 [employer] Patient Education 2022 [employer]. 10/05/2023 21:56:35 Abdominal Pain, Adult, Mfkz-zy-Yinb Abdominal Pain, Adult Many things can cause belly (abdominal) pain. Most times, belly pain is not dangerous. Many cases of belly pain can be watched and treated at home. Sometimes, though, belly pain is serious. Your doctor will try to find the cause of your belly pain. Follow these instructions at home: Medicines Take gmgr-ymv-nwtblpb and prescription medicines only as told by [...] your belly pain for any changes. Take agpd-zlv-kovvpko and prescription medicines only as told by [...] provider. Document Revised: 12/09/2019 Document Reviewed: 12/09/2019 [employer] Patient Education 2022 [employer]angaDo. Follow Up Care 10/05/2023 17:56:41 With:Johan HENRIQUEZ Address: [address] [place] [phone] Business (1) When:10/08/2023 20:57:11 With:Peggy Nazario Address[address] [place] [address]- Business (1) When:Within 3 Day(s) [facility]02-22-2024 Evaluation + Plan noteExtracted from: Title:ED NoteAuthor:Abilio PALMA, Nica AyoubDate:10/05/23 1. Constipation (K59.00: Con stipation, unspecified) Orders: [...] day(s), # 28 tab(s), Refills(s) 0, Pharmacy: [id number], 165, cm, 10/05/23 18:07:00 EST, Height/Length Dosing, 50.3, kg, 10/05/23 18:07:00 EST, Weight Dosing lidocaine topical, 200 mg, 10 mL, Soln-Oral, Oral, Once, Stop date 10/05/23 20:48:00 EST, STAT, Start date 10/05/23 20:48:00 EST ECG 12 Lead Adult Future Appointments Appointment Date:01/24/2024 02:30:00 PM Scheduled Provider:Micheline BROOKS MD Location:[facility] Appointment Type:URO Office Visit Future Scheduled Tests Laboratory* Basic Metabolic Panel 07/12/23 * Digoxin Level 07/12/23 [facility]02-19-2024 Miscellaneous Notes* Telephone Encounter - Gloria Mendes - 10/02/2023 9:35 AM EST October 02, 2023 Patient Contact Number: [phone] Patient last seen within the last year: Yes Date of last office visit: 09/26/2023 Reason For Call: Test Results; pt requesting to go over 09/26 labs Physician: Alea Harley MD Patient was informed that non-urgent calls may be returned within the next three business days. Yes Gloria Mendes documented in this encounterCleveland Clinic [facility]02-13-2024 Nurse Note* Chrissy Roberts OCCA - 09/26/2023 2:28 PM EST Post Void Residual done on patient with 45 cc residual volume remaining. MD notified. CARISSA Ferrell documented in this encounterCleveland Clinic [facility]02-13-2024 NoteL[facility]02-13-2024 History of Present illness Narrative* Raphael Goldsmith MD - 09/26/2023 2:15 PM EST [facility]VIC [...] Medicine and Reconstructive Surgery documented in this encounterCleveland Clinic [facility]02-13-2024 Instructions* Patient Instructions* Ana Rivas APRN.CNP - [...] with labs and EKG documented in this encounterCleveland Clinic [facility]02-13-2024 NoteLima [facility]02-13-2024 History of Present illness Narrative* Ana Rivas ASBESTOS WORKER HELPER.DYER ASSISTANT - 09/26/2023 8:51 AM EST Images from the original note were not included. [facility] [place] [facility] Department of Cardiovascular Medicine SECTION OF CLINICAL CARDIOLOGY OUTPATIENT VISIT DATE September 26, 2023 OUTPATIENT VISIT TYPE ESTABLISHED PRIMARY CARE PHYSICIAN: Peggy Nazario MD [address] [place] [address] REFERRING PHYSICIAN: Dr. Alea Harley [id number] [facility] [address] CHIEF COMPLAINT: Established Patient HISTORY OF PRESENT [...] ECG Confirmed by fellow NANCY MCMAHON, ZIGGY ([id number]) on 09/04/2023 1:50:09 PM Confirmed by MD DEJUAN, PhD, KHUSHI ([id number]) on 09/11/2023 1:23:[address] Result Conclusion CTA CHEST (GATED) W IVCON Exam End: 08/23/2023 7:47 AM (Final result) Impression: IMPRESSION: Dilated left ventricle, biatrial enlargement. Mitral valve is noncalcified. Normal caliber thoracic aorta. Industrial Staff Nurse: LILIANA Transcribe Date/Time: Aug 23 2023 11:20A [...] a plan of care. documented in this encounterCleveland Clinic [facility]02-08-2024 Miscellaneous Notes* Telephone Encounter - Carmina Reyna RN - 09/21/2023 4:[address] Harley would like patient to come in and be seen to go over this in greater detail. Work on setting her up with an COIL MACHINE SUPERVISOR and Dr. Harley would like to be in for the appointment. Next Monday. Carmina Reyna RN * Telephone Encounter - Gloria Mendes - 09/21/2023 3:33 PM EST September 21, 2023 Patient Contact Number: [phone] Patient last seen within the last year: [...] days. Yes Gloria Mendes documented in this encounterCleveland Clinic [facility]02-05-2024 History of Present illness Narrative* Farrukh Mcmahan [...] Flowsheet Row Patient Outreach from 09/18/2023 in [facility] with Loida Nathan LPN Discharge Information ED or Hospital Discharge? ED Patient has been contacted within 1 week of being seen in the ED Yes Discharge Date 09/17/23 Discharge [facility] [DX: ACid reflux, Medication reaction] [...] for ER follow up. Pt seen at [facility] on 09/17/23 due to dizziness and shaking. Hospitalrecords were reviewed. Pt had an elevated BP. She believes the dizziness and shaking was caused by the valsartan. She had the same issues when she was on it before, was advised to cut it in half. Shestates she has been feeling better since she stopped it. Pt would like a referral to a new english composition teacher/surgeon. She states she has been told that [...] be referred to a cardiothoracic surgeon at [facility]. Discussed some risks of surgery. - Ambulatory referral to Cardiothoracic Surgery; Future Entered by _El_, acting as scribe for Dr. Lr_. Signature _Heath MCMAHON_ Date _09/18/2023_. The documentation recorded by the scribe accurately reflects the service(s) I personally performed and the decisions I made. documented in this encounterSaint John's Aurora Community [id number] Evaluation + Plan note Extracted from:Title:ED NoteAuthor:Armen Parveen Benitez.Date:09/17/23 Acid reflux (K21.9: Gastro-e sophageal reflux disease [...] PM Scheduled Provider:Micheline BROOKS MD Location:[facility] Appointment Type:URO Office Visit Future Scheduled Tests Laboratory* Basic Metabolic Panel 07/12/23 * Digoxin Level 07/12/23 [facility]02-04-2024 Hospital Discharge instructions Patient Education 09/17/2023 [...] medicines that you are allergic to. Take vsbl-ywu-xtrodpz and prescription medicines only as told by your health care provider. If you were given medicines to treat your allergic reaction, do not drive until your health care provider tells you it is safe. If you have hives or a rash: ?Use an zstc-oxe-sjeqbyl antihistamine as told by your health care [...] provider. Document Revised: 01/10/2022 Document Reviewed: 01/10/2022 [employer] Patient Education 2022 [employer]. 09/17/2023 06:16:25 Heartburn Heartburn Heartburn is a [...] powder, vinegar, hot sauces, and barbecue sauce. ?Durand fruit juices and citrus fruits, such as oranges, ronald, and limes. ?Tomato-based foods, such as red sauce, chili, salsa, and pizza with red sauce. ?Fried and fatty foods, such as donuts, greenlandic fries, potato chips, and high-fat dressings. ?High-fat [...] ask your health care provider. Medicines Take omnu-mjt-djxaooe and prescription medicines only as told by [...] told by your health care provider. Take ictm-xqv-qqevcfk and prescription medicines only as told by [...] provider. Document Revised: 02/03/2021 Document Reviewed: 02/03/2021 [employer] Patient Education 2022 [employer]. Follow Up Care 09/17/2023 04:56:21 With:Peggy Nazario Address: [address] [place], [place] [id number] [facility] (1) When:Within 3 Day(s) [facility]02-04-2024 Miscellaneous Notes* Telephone Encounter - Carmina [...] (valsartan) again. Carmina Mcmahan APRN.CNP [facility] Spiritual Care Coordinator 09/17/2023 6:29 AM documented in [facility] Miscellaneous Notes* Telephone Encounter - Carmina Mcmahan APRN.CNP - 09/17/2023 4:21 AM [facility] Center Inbound Phone Encounter DATE of SERVICE: 09/17/2023 TIME of SERVICE: 4:21 AM Status: Urgent Service/Provider: Clinical Cardiology Alea Harley MD Reason for call: Medication Issue/Question Contact information: [phone] Resolution: Reinforced education and Sent to [facility] Comments: Patient calling after waking up with [...] to try. Carmina Mcmahan APRN.CNP [facility] Spiritual Care Coordinator Date of Resolution: 09/17/2023 Time of Resolution 4:21 AM documented in this encounterC[facility]24 Telephone encounter Note * Telephone Encounter - Rupal Lemus - 09/15/2023 1:24 PM EST Pt calls to check status of this, wants this done as quickly as possible, states that she will haveto cut pills in half to make it through the weekend and missed one last night. [facility] HospitalTmdsaizjwq58-09-2291 Miscellaneous Notes* Telephone Encounter - Rupal Lemus [...] out completely on monday documented in this encounterNOHCA Midwest DivisionZimmealkue57-25-0541 Telephone encounter Note* Telephone Encounter - Candis Amaro - 09/15/2023 9:49 AM EST Pt calls to ask if [facility] Nlulpktpfj58-11-2650 Telephone encounter Note* Telephone Encounter - Candis Amaro - 09/13/2023 11:25 AM EST Pt said she would [facility] [id number] Telephone encounter Note* Telephone Encounter - Farrukh Mcmahan MA - 09/13/2023 11:06 AM EST [id number] Telephone encounter Note* Telephone Encounter - Candis Amaro - 09/13/2023 11:01 AM EST Pt calls for refill of lorazepam is almost out will be out completely on monday [facility] [id number] Evaluation + Plan noteExtracted from:Title:ED Note Author:Parveen Ayers DODate:09/12/23 Acid reflux (K21.9: Gastro-e sophageal reflux disease [...] PM Scheduled Provider:Micheline BROOKS MD Location:[facility] Appointment Type:URO Office Visit Future Scheduled Tests Laboratory* Basic Metabolic Panel 07/12/23 * Digoxin Level 07/12/23 [facility]01-30-2024 Hospital Discharge instructions Patient Education 09/12/2023 [...] as meditation or yoga. General instructions Take sept-bjd-wekqeje and prescription medicines only as told by [...] provider. Document Revised: 05/20/2022 Document Reviewed: 05/20/2022 [employer] Patient Education 2022 [employer]. 09/12/2023 06:47:40 Gastroesophageal Reflux Disease, Adult Gastroesophageal [...] powder, vinegar, hot sauces, and barbecue sauce. ?Durand fruit juices and citrus fruits, such as oranges, ronald, and limes. ?Tomato-based foods, such as red sauce, chili, salsa, and pizza with red sauce. ?Fried and fatty foods, such as donuts, greenlandic fries, potato chips, and high-fat dressings. ?High-fat [...] to any changes in your symptoms. Take ghmi-bgk-cfubevj and prescription medicines only as told by [...] you have new or worsening symptoms. Take daay-tvf-dtvravr and prescription medicines only as told by [...] provider. Document Revised: 02/08/2021 Document Reviewed: 02/08/2021 [employer] Patient Education 2022 [employer]. Follow Up Care 09/12/2023 04:04:55 With:Peggy Nazario Address: [address] [place] [phone] Business (1) When:Within 3 Day(s) [facility]-27-20[facility] History of Past illness Narrative* ProblemNoted DateDiagnosed DateResolved DateAcute on chronic systolic congestive heart dbtkbya36ocumented as of this encounter (statuses as of 09/17/2023) [facility] History of Past illness Narrative* ProblemNoted Date Diagnosed DateResolved DateAcute on chronic systolic congestive heart failure 4documented as of this encounter (statuses as of 09/21/2023) [address]13-2024 History of Past illness Narrative* ProblemNoted Date Diagnosed DateResolved DateAcute on chronic systolic congestive heart failure ocumented as of this encounter (statuses as of 09/26/2023) [address]13-2024 History of Past illness Narrative* ProblemNoted Date Diagnosed DateResolved DateAcute on chronic systolic congestive heart failure 4documented as of this encounter (statuses as of 09/26/2023) [facility] History of Past illness Narrative* ProblemNoted Date Diagnosed DateResolved DateAcute on chronic systolic congestive heart failure ocumented as of this encounter (statuses as of 09/29/2023) [address]13-2024 History of Past illness Narrative* ProblemNoted Date Diagnosed DateResolved DateAcute on chronic systolic congestive heart failure 4documented as of this encounter (statuses as of 10/02/2023) [address]13-2024 History of Past illness Narrative* ProblemNoted Date Diagnosed DateResolved DateAcute on chronic systolic congestive heart failure 4documented as of this encounter (statuses as of 10/16/2023) [address]13-2024 History of Past illness Narrative* ProblemNoted Date Diagnosed DateResolved DateAcute on chronic systolic congestive heart failure 4documented as of this encounter (statuses as of 10/17/2023) [address]13-2024 History of Past illness Narrative* ProblemNoted Date Diagnosed DateResolved DateAcute on chronic systolic congestive heart failure 4documented as of this encounter (statuses as of 10/20/2023) [facility]01-13-2024 NoteHNO ID: [id number] Author: NOTE, INTERFACE, ? Service: ? Author Type: ? Type: Progress Notes Filed: 08/26/2023 02:15 Note Text: Epic Scheduled Downtime: 08/26/2023 1:00:00 AM to 08/26/2023 2:04:22 [facility]11[facility]23 NoteProcedure The risk/benefits of the procedure [...] Education Routine Capillary Glucose POC Saline Lock InsertCleveland Clinic Fairview HospitalComment on above:Result Comment: Electronically Signed By: MARTINEZ MCMAHON, Johan Ribeiro.br\Date and Time Signed: 07/05/23 06:48 [id number] History of Present illness Narrative* Farrukh Mcmahan, MA - 08/11/2023 8:45 AM EST Harjit Asencio is a 73 y.o. female presents today to follow up on anxiety. HPI: Pt here today for follow up on anxiety. Pt states yesterday she had a panic attack. She received a bill from [facility] that made her very upset and she had a panic attack. She felt like she couldn't catchher breath the rest of the day. Pt is currently on holter monitor. Pt has instructions from [facility] that she is confused about and would [...] Chronic fatigue syndrome Discussed. documented in this encounterSaint John's Aurora Community HospitalEevdvquama72-68-4274 Miscellaneous Notes* Telephone Encounter - Rebecca Fernandez - 07/24/2023 10:22 AM EST IN * Telephone Encounter - Katie Nicholson - 07/24/2023 10:08 AM EST Please register insurance Thank you! documented in this encounterCleveland Clinic [facility]12-11-2023 Note [id number] [facility] 07-21-2023 Evaluation + Plan noteExtracted from:Title:Procedure Note Heart & VascularAuthor:Johan HENRIQUEZ MDDate:07/21/23 Ordered: benzocaine/butamben/tetracaine topical, 3 spray(s), Ellsworth-Top, Topical, q2min PRN Other (see comment), Routine, [...] Oxygen Therapy Saline Lock Insert Suctioning HAROON ([facility]) Vital Signs Future Appointments Appointment Date:01/24/2024 02:30:00 PM Scheduled Provider:Micheline BROOKS MD Location:[facility] Appointment Type:URO Office Visit Future Scheduled Tests Laboratory* Basic Metabolic Panel 07/12/23 * Digoxin Level 07/12/23 [facility]12-08-2023 Hospital Discharge instructions Patient Education 07/21/2023 08:44:29 CV - Post-Transesophageal Echocardiogram (Custom) [place], [place] POST-TRANSESOPHAGEAL ECHOCARDIOGRAM AFTER THE PROCEDURE: Diet: [...] appointment Seek Medical Care if: Notify your english composition teacher should you have any difficulty swallowing or coughing up blood. In the event you are unable to reach your english composition teacher, please call [facility] at [phone] and the mixer operator tablets will assist you. Follow Up Care 07/20/2023 11:03:45 With:Johan HENRIQUEZ Address: [address] [place] [phone] Business (1) When: Unknown Comments:-After your appointment with [facility]12-08-2023 NoteProcedure The risk/benefits of the [...] plan_ Assessment/Plan Ordered: benzocaine/butamben/tetracaine topical, 3 spray(s), Ellsworth-Top, Topical, q2min PRN Other (see comment), Routine, [...] Oxygen Therapy Saline Lock Insert Suctioning HAROON (Gaudencio) Vital SignsCleveland Clinic Fairview HospitalComment on above:Result Comment: Electronically Signed By: MARTINEZ MCMAHON, Johan Ribeiro.br\Date and Time Signed: 07/21/23 07:09 [id number] Evaluation + Plan note Future Appointments Appointment Date:07/21/2023 08:00:00 AM Scheduled Provider: Location[facility] Appointment Type:[facility] () Appointment Date:07/21/2023 08:00:00 AM Scheduled Provider: Location:.[facility] Appointment Type:CV Echo () Appointment Date:01/24/2024 02:30:00 PM Scheduled Provider:Micheline BROOKS MD Location:[facility] Appointment Type:URO Office Visit Future Scheduled Tests Laboratory* Basic Metabolic Panel 07/12/23 * Digoxin Level 07/12/23 Radiology* Echo Transesophageal 2D 07/21/23 [facility]11-29-2023 Evaluation + Plan note Future Scheduled Tests Laboratory* Basic Metabolic Panel 07/12/23 * Digoxin Level 07/12/23 [facility] 11-24-2023 Hospital Discharge instructions Patient Education [...] health careprovider. Avoid caffeine, alcohol, and certain ipnq-rpw-qnvcola cold medicines. These may make you feel worse. Ask your pharmacist which medicines to avoid. General instructions Take ccse-jyl-hxmwmhk and prescription medicines only as told by [...] Depression Association of Patricia (ADAA): www.adaa.org National [place] on Mental Illness (TAYLOR): www.taylor.org Contact a [...] department or: Call your local emergency services (180 in the [place] Call a suicide crisis helpline, such as the National Suicide Prevention Lifeline at or 615 in the [place] This is open 24 hours a day in the [place] Text the Crisis Text Line at 596964 (in the [place] Summary Taking steps to [...] provider. Document Revised: 02/23/2022 Document Reviewed: 11/21/2021 [employer] Patient Education 2022 [employer] 07/07/2023 13:04:14 Atrial Fibrillation Atrial Fibrillation [...] electrical signals of the heart. An ambulatory manager cardiac to record your heart's activity for a [...] provider. Document Revised: 01/22/2020 Document Reviewed: 01/22/2020 [employer] Patient Education 2022 [employer]. Follow Up Care 07/07/2023 08:56:48 With:Johan HENRIQUEZ Address: [address] [place] [phone] Business (1) When:07/10/2023 12:45:48 With:Peggy Nazario Address: [address] [place] [address]- Business (1) When:07/10/2023 12:45:46 [facility]11-24-2023 NoteAdmission and Discharge Information Admitting Physician - Noman PATTON DO Consulting Physician - Shell MCMAHON, Eb Mcmillan. [facility] Cardio, XXXX Admitting Diagnoses: Discharge Diagnoses 1. [...] of breath. She was subsequently [facility] with acute paroxysmal atrial fibrillation with rapid ventricular response?new onset, acute systolic congestive heart failure, elevated troponin, severe mitral regurgitation and tricuspid regurgitation, mild coronary artery disease. She was seen in consultation by the english composition teacher and underwent cardiac catheterization and echo cardiogram. [...] is for patient to follow-up with a english composition teacher as well as the urologist as outpatient. She may need valvular repair or replacement after follow-up with the english composition teacher and may also require HAROON as per the english composition teacher. Discharge time: 35 minutes. I spent 35 [...] 76.7 % Lymph Auto - 15.3 % Bienville Auto - 7.7 % Eos Auto - 0.0 % Basophil Auto - 0.3 % Neutro Absolute - 4.7 E9/L Lymph Absolute - 0.9 E9/L Bienville Absolute - 0.5 E9/L Eos Absolute - [...] - 79 mg/dL POC Device SN - [id number] POC User ID - [id number] POC Username - NIKHIL PAULSON CBC w/ [...] HDL - 43 mg/dL (more content not included)...[facility] HospitalComment on above:Result Comment: Electronically Signed By: Nahid SERRATO MD\.br\Date and Time Signed: 07/07/23 12:07 [id number] Evaluation + Plan noteExtracted from:Title:APSO NoteAuthor:Nahid SERRATO MDDate:07/06/23 73-year-old female with history of ureteral stricture with previous dilations, anxiety disorder presented with complaints of urinary hesitancy, constipation, cough and shortness of breath and was [facility] with acute paroxysmal atrial fibrillation with [...] IV Cardizem drip. Continue on Coreg, digoxin. Deputy Clerk debating on starting patient on amiodarone. Eliquis to start in 4 days after cardiac catheterization. Ordered: [facility] Care/Day Moderate 35 Minutes 93303 2. Acute systolic congestive heart failure (I50.21: Acute systolic (congestive) heart failure) Acute systolic congestive heart failure present on admission. Seen by english composition teacher and underwent cardiac catheterization that showed mild coronary artery disease. Also shows severe mitral regurgitation and tricuspid regurgitation with ejection fraction of 30 to35%. Continue on aspirin, Coreg, losartan and Lasix. Ordered: [facility] Care/Day Moderate 35 Minutes [id number] 3. Severe mitral regurgitation (I34.0: Nonrheumatic mitral (valve) insufficiency) As seen on cardiac catheterization. Patient will follow-up with english composition teacher for HAROON and then valvular repair. Deputy Clerk also considering transferring patient to or [facility]. Ordered: [facility] Care/Day Moderate 35 Minutes 00980 4. Elevated troponin (R79.89: Other specified abnormal findings of blood chemistry) Secondary to type II non-ST segment elevation myocardial infarction from above and mild coronary artery disease.. Seen by english composition teacher and underwent cardiac catheterization that showed mild coronary artery disease. Continue on aspirin, Lipitor, and Coreg. Ordered: [facility] Hospital Care/Day Moderate 35 Minutes [id number] 5. Mild coronary artery disease (I25.10: Atherosclerotic heart disease of chipewwa coronary artery without angina pectoris) As seen on cardiac catheterization on 07/05/2023. Continue on Lipitor and aspirin. Ordered: [facility] Hospital Care/Day Moderate 35 Minutes [id number] 6. anxiety (F41.9: Anxiety disorder, unspecified) Increase [...] deep vein thrombosis (DVT) prophylaxis (Z79.899: Other usp (current) drug therapy) SCDs. Eliquis to resume in 4 days. Disposition: Home soon today if heart rate is under good control with plans to follow-up with english composition teacher and urologist as outpatient. However if heart rate is still elevated then we will call [facility] or [facility] to see if we can transfer patient for valve repair/replacement. I discussed the diagnosis and plan of care with the patient at the bedside. Moderate level of MDM based on addressing above issues. This documentation was transcribed using voice recognition software. Several attempts were made to ensure accuracy. However inadvertent computerized post tensioning ironworker helper errors may be present. Nahid Serrato. Hospitalist. Orders: bisacodyl, 10 mg = 2 tab(s), Tab-EC, Oral, Once, Stop date 07/05/23 14:00:00 EST, Routine, Start date 07/05/23 14:00:00 EST, 07/05/23 13:52:00 EST lactulose, 20 gram = 30 mL, Syrup, Oral, Once, Stop date 07/05/23 14:00:00 EST, Routine, Start date07/05/23 14:00:00 EST, 07/05/23 13:52:00 EST lorazepam, 0.5 mg = 1 tab(s), Tab, Oral, QID PRN Anxiety, Routine, Start date 07/06/23 11:43:00 EST, 07/06/23 11:43:00 EST potassium chloride, 20 mEq = 1 tab(s), Tab-ER, Oral, Once, Stop date 07/06/23 10:00:00 EST, Routine, Start date 07/06/23 10:00:00 EST, 07/06/23 10:00:00 EST Basic Metabolic Panel Basic Metabolic Panel eGFR eGFR Extra Lav Tube Extracted from:Title:Progress/SOAP NoteAuthor:MARTINEZ MCMAHON, Johan PatinoDate:07/06/23 1. Atrial fibrillation with RVR (I48.91: Unspecified atrial fibrillation) Patient is atrial fibrillation with controlled ventricular response. Will discontinue Cardizem drip, and continue Coreg therapy and digoxin therapy. Her heart rate is fairly well-controlled. We can titrate up her Coreg provided her blood pressure is able to handle it. Another option would be to addamiodarone therapy. She will continue her low-dose Cozaar, Coreg, and low-dose Lasix 40 mg a day. 2. Acute systolic congestive heart failure (I50.21: Acute systolic (congestive) heart failure) Patient underwent left and right heart catheterization yesterday which demonstrated moderate to severe LV dysfunction, severe mitral regurgitation, mild pulmonary hypertension. The patient will require an outpatient transesophageal echocardiogram once her medical condition has stabilized to furtherevaluate her mitral regurgitation and tricuspid agitation. I [...] to transfer the patient directly to the [facility] or [facility] given her logistic challenges with gettinga ride to and from those facilities so [...] artery disease (I25.10: Atherosclerotic heart disease of chipewwa coronary artery without angina pectoris) 6. Pleural effusion (J90: Pleural effusion, not elsewhere classified) 7. Urinary hesitancy (R39.11: Hesitancy of micturition) 8. Other urethral stricture, female (N35.82: Other urethral stricture, female) 9. Urinary retention (R33.9: Retention of urine, unspecified) 10. Constipation (K59.00: Constipation, unspecified) 11. On deep vein thrombosis (DVT) prophylaxis (Z79.899: Other usp (current) drug therapy) Orders: acetaminophen, 650 mg [...] Patient Education Site Check Site Check Extracted from:Title:APSO NoteAuthor:JAZMÍN MCMAHON, FaustinoanefoDate:07/05/23 73-year-old female with history of ureteral stricture with previous dilations, anxiety disorder presented with complaints of urinary hesitancy, constipation, cough and shortness of breath and was admitted to [facility] with acute paroxysmal atrial fibrillation with [...] date 07/06/23 9:00:00 EST, 07/05/23 11:13:00 EST [facility] Care/Day Moderate 35 Minutes [id number] 2. Acute systolic congestive heart failure (I50.21: Acute systolic (congestive) heart failure) Acute systolic congestive heart failure present on admission. Seen by english composition teacher. She is status post cardiac catheterization that showed mild coronary artery disease. Also showed severe mitral regurgitation and tricuspid regurgitation.. Ejection fraction of 30 to 35%. Continue on aspirin, Coreg, losartan, Lasix. Ordered: [facility] Care/Day Moderate 35 Minutes 32147 3. Severe mitral regurgitation (I34.0: Nonrheumatic mitral (valve) insufficiency) Severe mitral regurgitation seen on cardiac catheterization. Follow-up with english composition teacher as outpatient for HAROON and then valvular repair. Ordered: [facility] Care/Day Moderate 35 Minutes [id number] 4. Elevated troponin (R79.89: Other specified abnormal findings of blood chemistry) Secondary to type II non-ST segment elevation myocardial infarction from above and mild coronary artery disease.. Seen by english composition teacher and underwent cardiac catheterization that showed mild coronary artery disease. Continue on aspirin, Lipitor, and Coreg. Ordered: furosemide, 40 mg = 1 tab(s), Tab, Oral, Daily, Routine, Start date 07/06/23 9:00:00 EST, 07/05/23 11:13:00 EST [facility] Care/Day Moderate 35 Minutes 10512 5. Mild coronary artery disease (I25.10: Atherosclerotic heart disease of [place] coronary artery without angina pectoris) As seen on cardiac catheterization on 07/06/2023. Continue on Lipitor and aspirin. [facility]: [facility] Moderate 35 Minutes 12950 6. Pleural effusion (J90: Pleural effusion, not [...] deep vein thrombosis (DVT) prophylaxis (Z79.899: Other usp (current) drug therapy) Lovenox. Disposition: Home in a.m. to follow-up with english composition teacher and urologist. I discussed the diagnosis and plan of care with the patient at the bedside. Moderate level of MDM based on addressing above issues. This documentation was transcribed using voice recognition software. Several attempts were made to ensure accuracy. However inadvertent computerized post tensioning ironworker helper errors may be present. Nahid Serrato. Hospitalist. Orders: Basic Metabolic Panel Basic Metabolic Panel Referral to [facility] Extracted from:Title:APSO NoteAuthor:JAZMÍN MCMAHON, FaustinoanefoDate:07/04/23 73-year-old female with history of ureteral stricture with previous dilations, anxiety disorder presented with complaints of urinary hesitancy, constipation, cough and shortness of breath and was admitted to [facility] with acute paroxysmal atrial fibrillation with [...] BID, # 60 tab(s), Refills(s) 0, Pharmacy: [facility] #[id number], 165, cm, 07/02/23 21:30:00 EST, Height/Length Dosing, 55.7, kg, 07/02/23 21:30:00 EST, Weight Dosing Echo Transthoracic Complete [facility] Care/Day Moderate 35 Minutes 57318 2. Acute systolic congestive heart failure (I50.21: Acute systolic (congestive) heart failure) Acute systolic congestive heart failure present on admission. Cardiology is following. Ejection fraction of 30 to 35%. Cardiology is planning on cardiac catheterization for ischemic work-up in AM. Meanwhile continue on aspirin, Coreg, losartan. We will verify with english composition teacher about Lasix. Ordered: [facility]Day Moderate 35 Minutes 54997 3. Elevated troponin (R79.89: Other specified abnormal findings of blood chemistry) Secondary to type II non-ST segment elevation myocardial infarction from above. Echocardiogram shows ejection fraction of 30 to 35%. Deputy Clerk following with plans for cardiac catheterization in AM. Meanwhile continue on aspirin and Coreg. Ordered: Echo Transthoracic Complete [facility]Day Moderate 35 Minutes 95166 4. Pleural effusion (J90: Pleural effusion, not elsewhere classified) Small pleural effusion secondary to acute systolic congestive heart failure. Supportive care. Lasix as needed. Ordered: [facility] Care/Day Moderate 35 Minutes 59492 5. Urinary hesitancy (R39.11: Hesitancy of micturition) Secondary to urethral stricture and urinary retention. She is status post Robles catheter placement. Urology consult reviewed by me. I appreciate and agreed recommendations. Patient will discharge with Robles catheter and leg bag to follow-up with urologist as outpatient. Ordered: [facility] Hospital Care/Day Moderate 35 Minutes 30265 6. Other urethral stricture, female (N35.82: Other [...] Stop date 07/03/23 12:00:00 EST, Routine, Start date07/03/23 12:00:00 EST, 07/03/23 12:00:00 EST polyethylene glycol 3350, 17 gram = 1 EA, Powder-Recon, Oral, Daily, NOW, Start date 07/03/23 11:16:00 EST [facility] Hospital Care/Day Moderate 35 Minutes 78328 9. On deep vein thrombosis (DVT) prophylaxis (Z79.899: Other usp (current) drug therapy) Lovenox. Disposition: Pending cardiac catheterization in AM. I discussed the diagnosis and plan of care with the patient at the bedside. I also spoke with the patient's daughter Mandeep over the phone. Moderate level of MDM based on addressing above issues. This documentation was transcribed using voice recognition software. Several attempts were made to ensure accuracy. However inadvertent computerized post tensioning ironworker helper errors may be present. Nahid Serrato. Hospitalist. Orders: enoxaparin, 60 mg = 0.6 mL, Injection, SubCutaneous, q12hr for 30 day(s), Stop date 08/02/23 22:59:00 EST, Routine, Start date 07/03/23 23:00:00 EST Cardiac Diet Extracted from:Title:Progress/SOAP NoteAuthor:Johan HENRIQUEZ MDte:07/04/23 1. Atrial fibrillation with RVR, (I48.91: Unspecified [...] chest x-ray, but no overt pleural effusion noted.We will hold off on diuretic therapy at [...] deep vein thrombosis (DVT) prophylaxis (Z79.899: Other usp (current) drug therapy) Urinary retention (R33.9: Retention of urine, unspecified) Extracted from:Title:Consult NoteAuthor:Shell MCMAHON, Eb Mcmillan.Date:07/03/23 New onset A-fib RVR and card iomyopathy [...] deep vein thrombosis (DVT) prophylaxis (Z79.899: Other manager intermediate (current) drug therapy) Urinary retention (R33.9: Retention of urine, unspecified) Extracted from:Title:Urology Consult and H&P 2Author:Cody LEO MD PDate: 07/03/23 Impression and Plan Diagnosis Atrial fibrillation with RVR ([id number] I48.91, Discharge, Medical). Constipation (HQU59-LZ K59.00, Discharge, Medical). Other urethral stricture, female (WIS71-BO N35.82, Discharge, Medical). Urinary retention (SEM13-ZU R33.9, Working, Medical). Course: Worsening, Overall this [...] with Dr. Brooks. Thank you consultation.. Extracted from:Title:APSO NoteAuthor:JAZMÍN MCMAHON, YosifoDate:11/20/23 73-year-old female with history of urethral stricture [...] I ordered echocardiogram. Ordered: Echo Transthoracic Complete [facility] Care/Day Moderate 35 Minutes 73454 2. Elevated troponin (R79.89: Other specified abnormal findings of blood chemistry) Secondary to type II non-ST segment elevation myocardial infarction from above. Echocardiogram ordered. Cardiology consult pending. Continue on aspirin. Ordered: Echo Transthoracic Complete [facility] Care/Day Moderate 35 Minutes 26397 3. Urinary hesitancy (R39.11: Hesitancy of micturition) Secondary to urethral stricture. Patient is status post Robles catheter placement for urinary retention. She will follow-up with urologist as outpatient. Ordered: [facility] Care/Day Moderate 35 Minutes 01022 4. Constipation (K59.00: Constipation, unspecified) Started patient on MiraLAX and lactulose. Ordered: lactulose, 20 gram = 30 mL, Syrup, Oral, Once, Stop date 07/03/23 12:00:00 EST, Routine, Start date07/03/23 12:00:00 EST, 07/03/23 12:00:00 EST polyethylene glycol 3350, 17 gram = 1 EA, Powder-Recon, Oral, Daily, Routine, Start date 07/03/23 12:00:00 EST, 07/03/23 12:00:00 EST [facility] Care/Day Moderate 35 Minutes 95744 5. Other urethral stricture, female (N35.82: Other urethral stricture, female) Resulting in urinary retention. Patient is status post Robles catheter during this admission. Gets dilation of the ureter every 6 months. Urology consult pending. 6. On deep vein thrombosis (DVT) prophylaxis (Z79.899: Other usp (current) drug therapy) Lovenox. Disposition: Pending echocardiogram, cardiology and urology consult. I discussed the diagnosis and plan of care with the patient at the bedside. Moderate level of MDM based on addressing above issues. This documentation was transcribed using voice recognition software. Several attempts were made to ensure accuracy. However inadvertent computerized post tensioning ironworker helper errors may be present. Nahid Serrato. Hospitalist. Orders: Cardiac Diet Extracted from:Title:Admission H & PAuthor:Noman PATTON DO RDate:07/03/23 1. Atrial fibrillation with RVR, (I48.91: Unspecified [...] deep vein thrombosis (DVT) prophylaxis (Z79.899: Other manager intermediate (current) drug therapy) SCD, enoxaparin Orders: [...] solution 100 mL, 100 mL, IV, 5 mL/hr,Routine, Start date 07/03/23 2:50:00 EST, 20 hour(s), [...] q6hr PRN Nausea, Routine, Start date 07/03/23 2:52:00EST, 07/03/23 2:52:00 EST polyethylene glycol 3350, 17 gram = 1 EA, Powder-Recon, Oral, Daily PRN Constipation for 30 day(s),Stop date 08/02/23 2:49:00 EST, Routine, Start date [...] midnights. Patient will be observation status. Extracted from:Title:ED NoteAuthor:Yvette Vasquez, Layton HDate:07/03/23 1. Urinary hesitancy (R39.11 : Hesitancy of [...] solution 100 mL, 100 mL, IV, 5 mL/hr,STAT, Start date 07/02/23 23:19:00 EST, 20 hour(s), Total volume (mL): 100, 5-15 mg/hr, Titrate perprotocol, 55.7 kg, 1.6, m2 lorazepam, 0.5 mg = 1 tab(s), Tab, Oral, Once, Stop date 07/02/23 22:33:00 EST, STAT, Start date 07/02/23 22:33:00 EST, 07/02/23 22:33:00 EST Sodium Chloride 0.9% intravenous solution, 1,000 mL, Soln-IV, IV, Once, Stop date 07/02/23 22:57:00EST, STAT, Start date 07/02/23 22:57:00 EST, Infuse [...] PM Scheduled Provider:Micheline BROOKS MD Location:[facility] Appointment Type:URO Office Visit Future Scheduled Tests Laboratory* Basic Metabolic Panel 07/12/23 * Digoxin Level 07/12/23 [facility]11-22-2023 NoteCRM entered the room to discuss [...] transport. Plan now to stay, [facility]:Result Comment: Electronically Signed By: Margaret Grimm\.br\Date and Time Signed: 07/05/23 15:06 [id number] Evaluation + Plan noteExtracted from:Title: Procedure Note Heart & VascularAuthor:MARTINEZ MCMAHON, Johan PatinoDate:07/05/23 Ordered: aspirin, 81 mg = 1 tab(s), [...] PM Scheduled Provider:Micheline BROOKS MD Location:[facility] Appointment Type:URO Office Visit Future Scheduled Tests Laboratory* Basic Metabolic Panel 07/12/23 * Digoxin Level 07/12/23 [facility]11-22-2023 Hospital Discharge instructions Patient Education 07/05/2023 09:04:47 CV - Cardiovascular Discharge Instructions (Custom) [place], [place] CARDIOVASCULAR DISCHARGE INSTRUCTIONS Diet: Resume pre-procedure [...] hours post procedure: Actoplus MetGlucophageGlucophage XR GlucovanceAvandametFortamet Dqf-xbynrtjadSttvvbXzur-duktbwibq GlumetzaJanumetMetaglip RiometGlycomet *Minimal pain, soreness and/or discomfort [...] you are interested in smoking cessation, contact [facility] at [phone], ext. [phone]. In the event you are unable to reach your physician, please call [facility] at [phone] and the mixer operator tablets will assist you. Seek Immediate Medical Care for: Bleeding: Apply continuous pressure to the site and Call 911. Should the arm or leg become cold, numb, blue or white call your physician immediately. Signs of infection are redness, warmth, swelling, increased tenderness, colored drainage, fever or chills Chest pain Follow Up Care 07/02/2023 21:18:33 With:Johan HENRIQUEZ Address: [address] [place] [phone] Business (1) When:2 weeks Comments:Call for followup appointment With:Peggy Nazario Address: [address] [place] [phone] Business (1) When:07/10/2023 13:00:00 With:Micheline BOROKS Address: [facility] [address] [place] [address] Business (1) When: Unknown Comments:Call for followup appointment re: the indwelling Robles catheter. [facility]11-21-2023 NoteCRM entered the room to discuss dc planning. PCP, DME and insurance discussed. Patient is alert andinvolved in plan of care. Contact information provided and whiteboard updated. Pt was seen by Cardstomarsha, pt will be dc'd on Eliquis. CRM will pablo check and apply coupon if needed. Lucila Humphreys. ANt dc today. Pt will transport self home.[facility] Hospital[facility] on above:Result Comment: Electronically Signed By: Margaret Grimm\Date and Time Signed: 07/04/23 10:49 [id number] NoteChief Complaint I cannot urinate Reason for [...] deep vein thrombosis (DVT) prophylaxis (Z79.899: Other manager intermediate (current) drug therapy) Urinary retention (R33.9: [...] tab(s), Oral, Daily Ativa (more content not included)...[facility] Hospital[facility] on above: Result Comment: Electronically Signed By: Shell MCMAHON, Eb Yeh\.br\Date and Time Signed: 07/03/23 21:35 [id number] NoteEchocardiology Procedure Exam Date/Time Accession # Ordering Echo Transthoracic 07/03/2023 13:36 EST [id number] Nahid SERRATO MD Complete CPT code 70539 32572 Reason for Exam (Echo Transthoracic Complete) Congestive Heart Failure Report Version: 1 Study ID: [id number] [facility] [address] [place] [address] Adult Echocardiogram Report Name: HARJIT ASENCIO I Study Date: 07/03/2023, 1: 00 PM Patient Location: [address] [place] [address] : 1950 (MM/DD/YYYY) Gender: Female Age: 73 [...] Signed by: Eb Goff MD Transcribed by: [facility] Technologist: [facility]11-20-2023 Note Chief Complaint Pt presents to [...] 22:10:00) Lymph Auto: 15.3 % (07/02/23 22:10:00) [place] Auto: 7.7 % (07/02/23 22:10:00) Eos Auto: 0 % (07/02/23 22:10:00) Basophil Auto: 0.3 % (07/02/23 22:10:00) Neutro Absolute: 4.7 E9/L (07/02/23 22:10:00) Lymph Absolute: 0.9 E9/L Low (07/02/23 22:10:00) [place] Absolute: 0.5 E9/L (07/02/23 22:10:00) Eos Absolute: 0 E9/L (07/02/23 22:10:00) Basophil Absolute: 0 E9/L (07/02/23 22:10:00) PT: 13.2 second(s) High (07/02/23 22:10:00) INR: 1.2 (07/02/23 22:10:00) PTT: 30.2 second(s) (07/02/23 22:10:00) Glucose Lvl: 129 mg/dL (07/02/23 22:10:00) BUN: 13 mg/dL (07/02/23 22:10:00) Creatinine: 1 mg/dL (07/02/23 22:10:00) eGFR: 59 mL/min/1.73 m2 (07/02/23 22:10:00) BUN/Creat Ratio: 13 (07/02/23:10:00) Sodium Lvl: 133 mmol/L Low (07/02/23:10:00) Potassium Lvl: 3.8 mmol/L (07/02/23 22:10:00) Chloride: 100 mmol/L Low (07/02/23:10:00) CO2: 24 mmol/L (07/02/23:10:00) AGAP: 13 mEq/L (07/02/23:10:00) Calcium Lvl: 9.1 mg/dL (07/02/23:10:00) Alk Phos: 58 Int._Unit/L (07/02/23 22:10:00) ALT: [...] Trace2 Abnormal (07/02/23 22: (more content not included)...[facility] HospitalComment on above:Result Comment: Electronically Signed By: Noman PATTON DO.zak\Date and Time Signed: 07/03/23 02:59 [id number] Hospital Discharge instructions Patient Education 07/01/2023 00:37:46 Abdominal Pain, Adult, Labu-xk-Rivz Abdominal Pain, Adult Many things can cause belly (abdominal) pain. Most times, belly pain is not dangerous. Many cases of belly pain can be watched and treated at home. Sometimes, though, belly pain is serious. Your doctor will try to find the cause of your belly pain. Follow these instructions at home: Medicines Take mykq-nde-gowkawp and prescription medicines only as told by [...] your belly pain for any changes. Take anyd-sln-pjxqand and prescription medicines only as told by [...] provider. Document Revised: 12/09/2019 Document Reviewed: 12/09/2019 [employer] Patient Education 2022 [employer]. Follow Up Care 06/30/2023 18:51:38 With:Peggy Nazario Address: [address] [place], [place] [phone] Business (1) When:07/04/2023 Comments:You can use the Bentyl, Zofran every 6 hours as needed for pain and nausea. Please follow-up with your primary care doctor next 2 to 3 days for further evaluation management. Please return to the ED for any new or worsening symptoms. [facility]11-17-2023 Evaluation + Plan noteExtracted from: Title:ED NoteAuthor:Koby Mastesron DO ADate:06/30/23 Abdominal pain, acute (R10.9 : Unspecified abdominal pain) Orders: dicyclomine, 20 mg = 2 mL, Injection, IntraMuscular, Once, Stop date 06/30/23 20:58:00 EST, STAT, Start date 06/30/23 20:58:00 EST, 06/30/23 20:58:00 EST dicyclomine, 10 mg = 1 cap(s), Oral, QID, X 7 day(s), # 14 cap(s), Refills(s) 0, Pharmacy: [facility] #[id number], 165, cm, 06/30/23 19:37:00 EST, Height/Length Dosing, [...] q8hr, # 12 tab(s), Refills(s) 0, Pharmacy: [facility]#[id number], 165, cm, 06/30/23 19:37:00 EST, Height/Length Dosing, 55.7, kg, 06/30/23 19:37:00 EST, Weight Dosing Automated Diff Basic Metabolic Panel CBC w/ Auto Diff CT Abdomen/Pelvis w/o Contrast eGFR Extra Blue Tube Hepatic Function Panel Lipase Level UA With Cult Reflex Future Appointments Appointment Date:11/22/2023 01:00:00 PM Scheduled Provider:Micheline BROOKS MD Location:[facility] Appointment Type:URO Office Visit [facility]09-13-2023 Hospital Discharge instructions Patient Education 04/26/2023 [...] symptoms are. Treatment may include: Using an garx-rxo-asgfqab vaginal lubricant before sex. Using a long-acting [...] Follow these instructions at home: Medicines Take gdez-mmv-kxnhybo and prescription medicines only as told by your health care provider. Do not use herbal or alternative medicines unless your health care provider says that you can. Use crja-yox-uwbqyfz creams, lubricants, or moisturizers for dryness only [...] provider. Document Revised: 01/28/2021 Document Reviewed: 01/28/2021 [employer] Patient Education 2022 [employer]. Follow Up Care 10/25/2022 10:34:06 With:CECILIA MCMAHON, Micheline Morgan, URL Address: [facility] [address] [place] [address]- When: Unknown [facility] 08-22-2023 Hospital Discharge instructions Patient Education 04/04/2023 [...] Follow these instructions at home: Medicines Take mnyg-vec-mcpyspf and prescription medicines only as told by [...] Watch your condition for any changes. Take vvpj-nrt-ckssuoh and prescription medicines only as told by [...] provider. Document Revised: 09/18/2020 Document Reviewed: 12/09/2019 [employer] Patient Education 2022 [employer]. Follow Up Care 04/04/2023 13:51:29 With:Peggy Nazario Address: [address] [place] [phone] Business (1) When:04/07/2023 16:25:09 Comments:Call the office [...] you develop any new or worsening symptoms. [facility]06-18-2023 Hospital Discharge instructions Patient Education 01/28/2023 23:28:19 RICE Therapy for Routine Care of Injuries, Rklw-ol-Jmss RICE Therapy for Routine Care of Injuries [...] provider. Document Revised: 05/20/2021 Document Reviewed: 05/20/2021 [employer] Patient Education 2022 [employer] 01/28/2023 23:28:19 Hand Contusion Hand Contusion [...] An elastic wrap to support your hand. Tpba-nyz-puwvppm medicines to control pain. Follow these instructions [...] sitting or lying down. General instructions Take jalf-olu-rmeboqk and prescription medicines only as told by [...] provider. Document Revised: 11/18/2021 Document Reviewed: 11/18/2021 [employer] Patient Education 2022 [employer]. Follow Up Care 01/28/2023 21:23:51 With:Peggy Nazario Address: [employer] [place] [phone] Business (1) When:01/31/2023 Comments:Follow-up with your primary care provider in 3 to 5 days. If symptoms worsen, do not improve, or new symptoms arise please report back to emergency department for further evaluation. [facility]06-17-2023 Evaluation + Plan noteExtracted from: Title:ED NoteAuthor:Waldemar PALMA, Med Patino.Date:01/28/23 Contusion of left hand (S60. 222A: Contusion of left hand, initial encounter) Orders: XR Hand 3+ Views Left Future Appointments Appointment Date:04/26/2023 03:15:00 PM Scheduled Provider:Micheline BROOKS MD Location:[facility] Appointment Type:URO Office Visit [facility]03-14-2023 Hospital Discharge instructions Patient Education 10/25/2022 [...] With:Micheline BROOKS Address: [facility] [address] [place] [address] [facility] (1) When:04/27/2023 10:27:19 [facility]07-21-2022 Hospital Discharge instructions Patient Education 03/03/2022 [...] reconstructed. Follow these instructions at home: Take gvvl-hmt-dakwycr and prescription medicines only as told by [...] 08/26/2016 Document Revised: 03/13/2019 Document Reviewed: 03/13/2019 [employer] Patient Education 2020 [employer]. Follow Up Care 02/28/2022 09:40:23 With:CARMINA GARRISON PA-C, URL Address: [address] [place] [address] When: Unknown [facility] 07-05-2022 Hospital Discharge instructions Patient Education 02/15/2022 14:03:18 Contusion, Zzpm-zm-Umty Contusion A contusion is a deep bruise. [...] sitting or lying down. General instructions Take rdik-yhz-qotzyxm and prescription medicines only as told by [...] is also called RICE. Youmay be given nhot-ond-gjumemb medicines for pain. Contact a doctor if [...] 01/16/2009 Document Revised: 03/22/2019 Document Reviewed: 03/22/2019 [employer] Patient Education 2020 [employer]. 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 Contact a doctor if: Your symptoms [...] 07/31/2006 Document Revised: 11/20/2019 Document Reviewed: 10/06/2017 [employer] Patient Education 2020 [employer]. Follow Up Care 12/24/2021 17:34:06 With:Krysta Church Address: [address] [place] [address], [address] [place] [phone] Business (1) When:12/27/2021 18:21:21 With:Peggy Nazario Address: [address] [place] [phone]- Business (1) When:Within 3 Day(s) [facility] Future App[facility]ments Appointment Date:03/02/2022 02:00:00 PM Scheduled Provider:Micheline BROOKS MD Location:[facility] Appointment Type:URO Office Visit Future Scheduled Tests Laboratory* COVID-19 [place] [facility]12[facility] Future App[facility]ments Appointment Date:02/28/2022 09:30:00 AM Scheduled Provider:[facility]enn[facility] Iraheta [facility] New Patient (FT) Appointment Date:03/02/2022 02:00:00 PM Scheduled Provider:Micheline BROOKS MD Location:[facility] Appointment Type:URO Office Visit Future Scheduled Tests Laboratory* COVID-19 ([facility] 08[facility]12/21 [facility] Appointments Appointment Date:04/04/2022 10:00:00 AM Scheduled Provider:Yennifer Iraheta MD Location[facility] Appointment Type:Vascular New Patient (FT) Future Scheduled Tests Laboratory* COVID-19 ([facility] 08/12/21 [facility] Evaluation + Plan note Future Appointments Appointment Date:07/25/2022 09:15:00 AM Scheduled Provider:Yennifer Iraheta MD Location:.[facility] Appointment Type:Vascular Follow Up (FT) Appointment Date:09/26/2022 02:45:00 PM Scheduled Provider:[facility]icheline BROOKS MD [facility]O Office Visit Future Scheduled Tests Laboratory* COVID-19 ([facility] 08/12/21 Radiology* US LE Venous Duplex Insufficiency Bilat 06/14/22 [facility] App[facility]ments Appointment Date:07/25/2022 09:15:00 AM Scheduled Provider:Yennifer Iraheta MD Location[facility] Appointment Type:Vascular Follow Up (FT) Appointment Date:09/26/2022 02:45:00 PM Scheduled Provider:Micheline BROOKS MD [facility] Type:URO Office Visit Future Scheduled Tests Laboratory* COVID-19 ([facility] 08/12/21 [facility] Future Appointments Appointment Date:09/26/2022 02:45:00 PM Scheduled Provider:Micheline BROOKS MD [facility] Future Appointments Appointment Date:12/05/2022 03:00:00 PM Scheduled Provider: [facility] Type:MA Screen (FT) Appointment Date:04/26/2023 03:15:00 PM Scheduled Provider:Micheline BROOKS MD Location:[facility] Appointment Type:URO Office Visit Future Scheduled Tests Radiology* MA Mamm Screen w/CAD if perf and 3D [place] [facility] Future [facility]ments Appointment Date:04/26/2023 03:15:00 PM Scheduled Provider:Micheline BROOKS MD Location:[facility] Appointment Type:URO [facility] Future Appointments Appointment Date:07/19/2023 03:00:00 PM Scheduled Provider:Micheline BROOKS MD [facility] Type:[facility]O Office Visit Appointment Date:07/20/2023 10:30:00 AM Scheduled Provider:Johan HENRIQUEZ MD [facility] Type:Cardiology Inpatient Follow Up (FT) Appointment Date:11/22/2023 01:00:00 PM Scheduled Provider:Micheline BROOKS MD Location:[facility] Appointment Type:URO Office Visit Future Scheduled Tests Laboratory* Basic Metabolic Panel 07/12/23 * Digoxin Level 07/12/23 [facility] Future Appointments Appointment Date:01/24/2024 02:30:00 PM Scheduled Provider:Micheline BROOKS MD [facility] Appoint[facility] Type:URO Office Visit Future Scheduled Tests Laboratory* Basic Metabolic Panel 07/12/23 * Digoxin Level 07/12/23 [facility] Future Appointments Appointment Date:01/24/2024 02:30:00 PM Scheduled Provider:Micheline BROOKS MD Location:[facility] Appointment Type:URO Office Visit Diagnostic Tests Pending * Urine Culture 11/22/23 Future Scheduled Tests Laboratory* Basic Metabolic Panel 07/12/23 * Digoxin Level 07/12/23 [facility] Diagnosis Anxiety Anxiety state, unspecified [...] cardiomyopathies Persistent atrial fibrillation (HCC) Atrial fibrillation FPC current use of anticoagulant Long-term (current) use of 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s History of cardioversion Personal history of surgery to heart and great vessels, presenting hazards to health Primary hypertension Unspecified essential hypertension [facility] Diagnosis Mitral valve insufficiency, unspecified etiology- Primary Anxiety Anxiety state, unspecified Paroxysmal atrial fibrillation (CMS/HCC) Atrial fibrillation Other cardiomyopathy (CMS/HCC) Hospital discharge follow-up Other follow-up examination Other thrombophilia (D68.69) Atherosclerosis of aorta (I70.0) Atherosclerosis of aorta [facility] Diagnosis Feeling of incomplete bladder emptying- Primary Incomplete bladder emptying Stricture of female urethra, unspecified stricture type Severe protein-calorie malnutrition (HCC) Other severe protein-calorie malnutrition [facility] Diagnosis Screening for genitourinary condition Screening for other and unspecified genitourinary condition [facility] Diagnosis Feeling of incomplete bladder emptying- Primary Incomplete bladder emptying Stricture of female urethra, unspecified stricture type Severe protein-calorie malnutrition (HCC) Other severe protein-calorie malnutrition [facility]* Diagnosis Mitral valve regurgitation due to cardiomyopathy (HCC)- Primary [facility]* Diagnosis Non-rheumatic mitral regurgitation Mitral valve disorders Persistent atrial fibrillation (HCC) Atrial fibrillation Non-ischemic cardiomyopathy (HCC) Other primary cardiomyopathies Chronic HFrEF (heart failure with reduced ejection fraction) ([facility]) [facility]* Diagnosis Stricture of female urethra, unspecified stricture type- Primary Feeling of incomplete bladder emptying Incomplete bladder emptying [facility]* Diagnosis Screening for genitourinary condition Screening for other and unspecified genitourinary condition [facility]* Diagnosis Feeling of incomplete bladder emptying- Primary Incomplete bladder emptying Stricture of female urethra, unspecified stricture type [facility]* Diagnosis Dysuria documented in this encounter [facility]* Diagnosis Anxiety Anxiety state, unspecified documented in this encounter [facility]* Diagnosis Postmenopausal atrophic vaginitis Breast cancer screening by mammogram documented in this encounter [facility]* Diagnosis Dysuria- Primary Urinary frequency Atrial fibrillation, persistent (HCC) (CMS/HCC) FPC current use of anticoagulant BMI 22.0-22.9, adult documented in this encounter [facility]* Diagnosis Anxiety Anxiety state, unspecified [...] agoraphobia Acute cough- Primary 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, 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 type 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 Atrial fibrillation, persistent [...] cough- Primary Bruising Contusion of unspecified site FPC current use of anticoagulant Atrial fibrillation, persistent [...] agoraphobia Atrial fibrillation, persistent (HCC) (CMS/HCC)- Primary 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 Primary hypertension (CMS/HCC) [...] agoraphobia Atrial fibrillation, persistent (HCC) (CMS/HCC)- Primary 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 Mitral valve regurgitation [...] [facility] HealthcareEvaluation note* Diagnosis Primary hypertension- Primary Unspecified essential hypertension Atrial fibrillation, persistent (HCC) Atherosclerosis of aorta Panic attack Panic disorder without agoraphobia Frequent urination- Primary Urinary frequency Painful urination Dysuria Mitral valve regurgitation due to cardiomyopathy (HCC) Exertional dyspnea Other dyspnea and respiratory abnormality Hypertensive heart disease with heart failure (HCC) Unspecified hypertensive heart disease with heart failure Atrial fibrillation, persistent (HCC) 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 difficile diarrhea Intestinal infection due to clostridium difficile Mitral valve regurgitation due to cardiomyopathy (HCC) Atrial fibrillation, persistent (HCC) FPC current use of anticoagulant documented in this encounter [facility]* Diagnosis Primary hypertension- Primary Unspecified essential hypertension Atrial fibrillation, persistent (HCC) Atherosclerosis of aorta Panic attack Panic disorder without agoraphobia Bee sting, accidental or unintentional, initial encounter- Primary Gastroesophageal reflux disease without esophagitis Esophageal reflux Ear fullness, right Fluid level behind tympanic membrane of right ear documented in this encounter [facility] HealthcareHospital course Narrative No data available for this section [facility] Discharge instructions No data available for this section [facility] No data available for this section [facility] for referral (narrative) , Mitral Valve and Tricuspid Valve Repair. Referred by: MARTINEZ MCMAHON, Johan Patino [facility] for referral (narrative)* Outpatient Procedure (Routine) - AuthorizedSpecialtyDiagnoses / ProceduresReferred By ContactReferred To [facility] Diagnoses Non-rheumatic mitral regurgitation Persistent atrial fibrillation (HCC) Non-ischemic cardiomyopathy (HCC) Chronic HFrEF (heart failure with reduced ejection fraction) (HCC) Procedures ECG COMPLETE ECG ROUTINE ECG W/LEAST 12 LDS W/I&R Ana Rivas, ASBESTOS WORKER HELPER.DYER ASSISTANT [address] [place] [address] [facility] [address] [id number] Referral IDStatusReasonStindianapolis DateExpiration DateVisits RequestedVisits [id number] Auto-Generated Referral * Transition of Care (Routine) - Ref Not RequiredSpecialtyDiagnoses / Procedures Referred By ContactReferred To Contact Diagnoses Non-rheumatic mitral regurgitation Persistent atrial fibrillation (HCC) Non-ischemic cardiomyopathy (HCC) Chronic HFrEF (heart failure with reduced ejection fraction) (HCC) Procedures CARDIOVASCULAR MEDICINE OP FOLLOW UP APPT ORDER Ana Rivas APRN.CNP [address] [id number] Referral IDStatusRe[facility] DateExpiration DateVisits RequestedVisits [id number] Not Required PCP Requested Referral * Outpatient Procedure (Routine) - AuthorizedSpecialtyDiagnoses / Procedures Referred By ContactReferred To [facility] Diagnoses Non-rheumatic mitral regurgitation Persistent atrial fibrillation (HCC) Non-ischemic cardiomyopathy (HCC) Chronic HFrEF (heart failure with reduced ejection fraction) (HCC) Procedures ECG COMPLETE ECG ROUTINE ECG W/LEAST 12 LDS W/I&R Ana Rivas APRN.DYER ASSISTANT [address] [place] [address] [facility] [address] [place] [address] Referral IDStatusasonLemoyne DateExpiration DateVisits RequestedVisits [id number] Auto-Generated Referral * Transition of Care (Routine) - Ref Not RequiredSpecialtyDiagnoses / Procedures Referred By ContactReferred To Contact Diagnoses Non-rheumatic mitral regurgitation Persistent atrial fibrillation (HCC) Non-ischemic cardiomyopathy (HCC) Chronic HFrEF (heart failure with reduced ejection fraction) (HCC) Procedures CARDIOVASCULAR MEDICINE OP FOLLOW UP APPT ORDER Ana Rivas APRN.CNP [address] [place] [address] Referral IDStatusReasonStart DateExpiration DateVisits RequestedVisits [id number] Not Required PCP Requested Referral * Outpatient Procedure (Routine) - AuthorizedSpecialtyDiagnoses / Procedures Referred By ContactReferred To [facility] [place] Diagnoses Non-rheumatic mitral regurgitation Persistent atrial fibrillation (HCC) Non-ischemic cardiomyopathy (HCC) Chronic HFrEF (heart failure with reduced ejection fraction) (HCC) Procedures ECG COMPLETE ECG ROUTINE ECG W/LEAST 12 LDS W/I&R Ana Rivas APRN.CNP [address] [place] [address] [facility] [address] [place] [address] Referral IDStatusReasonStart DateExpiration DateVisits RequestedVisits [id number] Auto-Generated Referral * Transition of Care (Routine) - Ref Not RequiredSpecialtyDiagnoses / Procedures Referred By ContactReferred To Contact Diagnoses Non-rheumatic mitral regurgitation Persistent atrial fibrillation (HCC) Non-ischemic cardiomyopathy (HCC) Chronic HFrEF (heart failure with reduced ejection fraction) (HCC) Procedures CARDIOVASCULAR MEDICINE OP FOLLOW UP APPT ORDER Ana Rivas APRN.CNP [address] [place] [address] Referral IDStatusReasonStart DateExpiration DateVisits RequestedVisits [id number] Not Required PCP Requested Referral [facility] for referral (narrative)* Consultation (Routine) - Pending ReviewSpecialtyDiagnoses / ProceduresReferred By ContactReferred To ContactCardiothoracic Surgery Diagnoses Mitral valve insufficiency, unspecified etiology Procedures MA OFFICE/OUTPATIENT [facility] 60 MINUTES Peggy Nazario MD [address] [place] [address] Referral IDStatusReasonStart DateExpiration DateVisits RequestedVisits [id number] Review Specialty Services Required / [facility] Summary Purpose Family History No [...] Records FoundLatest Code Status on File Code StatusDate ActivatedDate InactivatedCommentsFull Code08/24/2023 8:43 PM 08/31/2023 9:57 PMQuestionAnswerCommentsFull Code Order Discussed With:Patient Code StatusDate ActivatedDate InactivatedCommentsFull Code08/24/2023 8:43 PM 08/31/2023 9:57 PMQuestionAnswerCommentsFull Code Order Discussed With:Patient Date ActivatedDate InactivatedComments08/24/2023 8:43 PM08/31/2023 9:57 PMQuestion AnswerCommentsFull Code Order Discussed With:* Patient Additional Source Comments INFORMATION SOURCE (unrecogn ized section and content) DATE CREATED AUTHOR 08/23/2021 [facility] Corporate Treasurer DATE CREATED AUTHOR AUTHOR'S ORGANIZ ATION 06/05/2024 [facility] DATE CREATED AUTHOR AUTHOR'S ORGANIZ ATION 06/29/2024 [facility] DATE CREATED AUTHOR AUTHOR'S ORGANIZ ATION 11/22/2024 [facility] DATE CREATED AUTHOR AUTHOR'S ORGANIZ ATION 04/21/2025 [facility] DATE CREATED AUTHOR AUTHOR'S ORGANIZ ATION 04/25/2025 [facility] DATE CREATED AUTHOR AUTHOR'S ORGANIZ ATION 04/26/2025 [facility] DATE CREATED AUTHOR AUTHOR'S ORGANIZ ATION 04/29/2025 [facility] DATE CREATED AUTHOR AUTHOR'S ORGANIZ ATION 05/02/2025 [facility] DATE CREATED AUTHOR AUTHOR'S ORGANIZ ATION 05/03/2025 [facility] DATE CREATED AUTHOR AUTHOR'S ORGANIZ ATION 05/15/2025 [facility] EPIC DATE CREATED AUTHOR AUTHOR'S ORGANIZ ATION 06/01/2025 [facility] Care Team (unrecognized sect ion and content) Team MemberRelationshipSpecialtyStart DateEnd Date Peggy Nazario [address] [place] [address] PCP - GeneralFamily Daehmass79/11/23 Micheline Sorto MD [address] [place] [address] SurgeonCardiac Surg07/24/23 Johan Henriquez MD [facility] [address] [facility] [place] [address] VyowevhrxmxhCyiblvxuiz25/11/23Team MemberRelationshipSpecialtyStart DateEnd Date Peggy Nazario MD [address] [place] [address] PCP - [facility]01/05/23 Peggy Nazario MD [address] [place] [address] [facility] - [facility]02/08/23Team MemberRelationshipSpecialtyStart DateEnd Date Peggy Nazario MD [address] [place] [address] PCP - [facility]01/05/23 Peggy Nazario MD [address] [place] [address] [facility]02/08/23Team MemberRelationshipSpecialtyStart DateEnd Date Peggy Nazario [address] [place] [address] [facility] - [facility] Qrzoycew49/11/23 Micheline Sorto MD [address] [id number] SurgeonCardiac Surg07/24/23 Johan Henriquez MD [facility] [address] [place] [address] BwoklpsccfuzFumkvckihp10/11/23 Alea Harley MD [address] [place] [address] Bufluolddc62/15/23 Alea Harley MD [address] [place] [address] Primary Staff PhysicianCardiology1/10/24Team MemberRelationshipSpecialtyStart DateEnd Date Peggy Nazario [address] [place] [place] [address] PCP - [facility] Ecyiopez35/11/23 Micheline Sorto MD [address] [place] [address] SurgeonCardiac Surg07/24/23 Johan Henriquez MD [address] [place] [address] RtwpbfbybukoXgnqvajgkp96/11/23 Alea Harley MD [address] [place] [address] Yyrpklbjfz39/15/23 Alea Harley MD [address] [place] [address] Primary Staff PhysicianCardiology08/23/23Te MemberRelationshipSpecialtyStart DateEnd Date Peggy Nazario [address] [place] [address] PCP - [facility] Upjfkcfc05/11/23 Micheline Sorto MD [address] [place] [address] SurgeonCardiac Surg07/24/23 Johan Henriquez MD [address] [place] [address] JthwtpffkyltWqpesgjkir67/11/23 Alea Harley MD [address] [place] [address] Lnmvuuoxuj66/15/23 Alea Harley MD [address] [place] [address] Primary Staff PhysicianCardiology08/23/23Team MemberRelationshipSpecialtyStart DateEnd Date Peggy Nazario MD [address] [place] [address] PCP - [facility]01/05/23 Peggy Nazario MD [address] [place] [address] PCP - GeneralFamily Medicine02/08/23Team MemberRelationshipSpecialtyStart DateEnd Date Peggy Nazario [address] [place] [address] PCP - GeneralFamily Qhefrmna65/11/23 Micheline Sorto MD [address] [place] [address] SurgeonCardiac Surg07/24/23 Johan Henriquez MD [address] [place] [address] EobmdvqugqvuNlqqxkhozi47/11/23 Alea Harley MD [address] [place] [address] Mmrlzcnowk83/15/23 Alea Harley MD [address] [place] [address] Primary Staff PhysicianCardiology08/23/23Team MemberRelationshipSpecialtyStart DateEnd Date Peggy Nazario MD [address] [place] [address] PCP - [facility]01/05/23 Peggy Nazario MD [address] [place] [address] PCP - GeneralFamily Medicine02/08/23Team MemberRelationshipSpecialtyStart DateEnd Date Peggy Nazario [address] [place] [address] [facility] - [facility] Bvfyhezq54/11/23 Micheline Sorto MD [address] [phone] SurgeonCardiac Surg07/24/23 Johan Herniquez MD [facility] [address] [facility] [place] [address] VmwbzuiwcxkrRydkanptfu91/11/23 Alea Harley MD [address] [id number] Iqfdtjjhdm41/15/23 Alea Harley MD [address] [place] [address] Primary Staff PhysicianCardiology08/23/23Team MemberRelationshipSpecialtyStart DateEnd Date Peggy Nazario [address] [place] [place] [address] PCP - GeneralFamily Szzfubxl57/11/23 Micheline Sorto MD [address] [address] SurgeonCardiac Surg07/24/23 Johan Henriquez MD [address] [place] [address] BnjytqiovptzGjdfoiujtv01/11/23 Alea Harley MD [address] [facility] [place] [address] Vtysbebttk12/15/23 Alea Harley MD [address] [facility] [address] Primary Staff PhysicianCardiology08/23/23Team MemberRelationshipSpecialtyStart DateEnd Date Peggy Nazario [address] [place] [place] [address] PCP - GeneralFamily Onybpuhu77/11/23 Micheline Sorto MD [address] [place] [address] SurgeonCardiac Surg07/24/23 Johan Henriquez MD [address] [place] [address] TsyekfdscnrwKdwpqdnxbr02/11/23 Alea Harley MD [address] [facility] [place] [address] Euzejazyhk85/15/23 Alea Harley MD [address] [place] [address] Primary Staff PhysicianCardiology08/23/23Te MemberRelationshipSpecialtyStart DateEnd Date Peggy Nazario [address] [place] [address] [facility] Xrcabyet09/11/23 Micheline Sorto MD [address] [place] [address] SurgeonCardiac Surg07/24/23 Johan Henriquez MD [address] [place] [address] XkhkvodqzzpqDsykztheyc73/11/23 Alea Harley MD [address] [place] [address] Cjfsuurefw15/15/23 Alea Harley MD [address] [place] [address] Primary Staff PhysicianCardiology08/23/23Te MemberRelationshipSpecialtyStart DateEnd Date Peggy Nazario [address] [place] [address] [facility] Gjhzzxmd86/11/23 Micheline Sorto MD [address] [place] [address] SurgeonCardiac Surg07/24/23 Johan Henriquez MD [address] [place] [address] ZpienkoxpuebFypczyrjio65/11/23 Alea Harley MD [address] [place] [address] Yweotklyjs13/15/23 Alea Harley MD [address] [place] [address] Primary Staff PhysicianCardiology08/23/23Team MemberRelationshipSpecialtyStart DateEnd Date Peggy Nazario [address] [place] [place] [address] [facility] Uunazalg29/11/23 Micheline Sorto MD [address] [place] [address] SurgeonCardiac Surg07/24/23 Johan Henriquez MD [address] [place] [address] NtorfjdxyykfFaknkbiekl63/11/23 Alea Harley MD [address] [place] [address] Mjhadbkbjv80/15/23 Alea Harley MD [address] [place] [address] Primary Staff PhysicianCardiology08/23/23Team MemberRelationshipSpecialtyStart DateEnd Date Peggy Nazario [address] [place] [address] PCP - GeneralFamily Jusaiibp98/11/23 Micheline Sorto MD [address] [address] SurgeonCardiac Surg07/24/23 Johan Henriquez MD [address] [place] [address] PfmaibxncscoHwjurkpwrd57/11/23 Alea Harley MD [address] [facility] [place] [address] Umbrkyrhca11/15/23 Alea Harley MD [address] [facility] [address] Primary Staff PhysicianCardiology08/23/23Team MemberRelationshipSpecialtyStart DateEnd Date Peggy aNzario [address] [place] [place] [address] PCP - GeneralFamily Kosrnkbl64/11/23 Micheline Sorto MD [address] [place] [address] SurgeonCardiac Surg07/24/23 Johan Henriquez MD [address] [place] [address] CtoxdbbrmpccSbyphbaqrd36/11/23 Alea Harley MD [address] [facility] [place] [address] Yfrgypyhjh85/15/23 Alea Harley MD [address] [place] [address] Primary Staff PhysicianCardiology08/23/23Team MemberRelationshipSpecialtyStart DateEnd Peggy Nazario MD [address] [place] [address] PCP - [facility]01/05/23 Hannah Brian MD [address] [place] [address] PCP - [facility]11/03/23Te MemberRelationshipSpecialtyStart DateEnd Peggy Nazario MD [address] [place] [address] [facility] - Critical access hospital01/05/23 Hannah Brian MD [address] [place] [address] PCP - [facility]11/03/23Te MemberRelationshipSpecialtyStart DateEnd Peggy Nazario MD [address] [place] [address] PCP - Critical access hospital01/05/23 Hannah Brian MD [address] [place] [address] PCP - [facility]11/03/23Te MemberRelationshipSpecialtyStart DateEnd Peggy Nazario MD [address] [place] [address] PCP - Critical access hospital01/05/23 Hannah Brian MD [address] [place] [address] PCP - [facility]11/03/23Te MemberRelationshipSpecialtyStart DateEnd Peggy Nazario MD [address] [place] [address] PCP - Critical access hospital01/05/23 Hannah Brian MD [address] [place] [address] PCP - [facility]11/03/23Te MemberRelationshipSpecialtyStart DateEnd Peggy Nazario MD [address] [place] [address] PCP - Critical access hospital01/05/23 Hannah Brian MD [address] [place] [address] PCP - [facility]11/03/23Te MemberRelationshipSpecialtyStart DateEnd Peggy Nazario MD [address] [place] [address] PCP - Critical access hospital01/05/23 Hannah Brian MD [address] [place] [address] [facility]11/03/23Te MemberRelationshipSpecialtyStart DateEnd Peggy Nazario MD [address] [place] [address] PCP - [facility]01/05/23 Peggy Nazario MD [address] [place] [address] PCP - GeneralFamily Medicine02/08//Team MemberRelationshipSpecialtyStart DateEnd Peggy Nazario MD [address] [place] [address] PCP - [facility]01/05/23 Hannah Brian MD [address] [place] [address] PCP - [facility]11/03/23Team MemberRelationshipSpecialtyStart DateEnd Peggy Nazario MD [address] [place] [address] PCP - [facility]01/05/23 Hannah Brian MD [address] [place] [address] PCP - [facility]11/03/23Team MemberRelationshipSpecialtyStart DateEnd Peggy Nazario MD [address] [place] [address] PCP - [facility]01/05/23 Hannah Brian MD [address] [place] [address] PCP - [facility]11/03/23Team MemberRelationshipSpecialtyStart DateEnd Peggy Nazario MD [address] [place] [address] PCP - [facility]01/05/23 Hannah Brian MD [address] [place] [address] PCP - [facility]11/03/23Team MemberRelationshipSpecialtyStart DateEnd Peggy Nazario MD [address] [place] [address] PCP - [facility]01/05/23 Hannah Brian MD [address] [place] [address] PCP - [facility]Te MemberRelationshipSpecialtyStart DateEnd Peggy Nazario MD [address] [place] [address] PCP - [facility]01/05/23 Hannah Brian MD [address] [place] [address] P[facility] - [facility]/23Te MemberRelationshipSpecialtyStart End Peggy Nazario MD [address] [place] [address] PCP - [facility]01/05/23 Hannah Brian MD [address] [place] [address] P[facility] - [facility]11/03/23Te MemberRelationshipSpecialtyStart DateEnd Peggy Nazario MD [address] [place] [address] PCP - [facility]01/05/23 Hannah Brian MD [address] [place] [address] [facility]23Team MemberRelationshipSpecialtyStart End Peggy Nazario MD [address] [place] [address] PCP - [facility]01/05/23 Hannah Brian MD [address] [place] [address] P[facility] - [facility]/23Team MemberRelationshipSpecialtyStart DateEnd Peggy Nazario MD [address] [place] [address] PCP - [facility]01/05/23 Hannah Brian MD [address] [place] [address] P[facility] - [facility]/03/23Te MemberRelationshipSpecialtyStart End Peggy Nazario MD [address] [place] [address] PCP - [facility]01/05/23 Hannah Brian MD [address] [place] [address] [facility] [place]/23Team MemberRelationshipSpecialtyStart End Peggy Nazario MD [address] [place] [address] PCP - [facility]01/05/23 Hannah Brian MD [address] [place] [address] PCP - [facility]11/[facility]/23Team MemberRelationshipSpecialtyStart DateEnd Date Peggy Nazario MD [address] [place] [address] PCP - [facility]01/05/23 Hannah Brian MD [address] [place] [address] PCP - [facility]/23 Source Comments (unrecognize d section and content) In the event this informatio n is protected by the Federal Confidentiality of Alcohol and Drug Abuse Patient Records regulations: The Federal rules restrict any use of the information to criminally investigate or prosecute any alcohol or drug abuse patient.[facility] GeneralIn the event this information is protected by the Federal Confidentiality of Alcohol and Drug Abuse Patient Records regulations: The Federal rules restrict any use of the information to criminally investigate or prosecute any alcohol or drug abuse patient.[facility] GeneralIn the event this information is protected by the Federal Confidentiality of Alcohol and Drug Abuse Patient Records regulations: The Federal rules restrict any use of the information to criminally investigate or prosecute any alcohol or drug abuse patient.[facility] GeneralIn the event this information is protected by the Federal Confidentiality of Alcohol and Drug Abuse Patient Records regulations: The Federal rules restrict any use of the information to criminally investigate or prosecute any alcohol or drug abuse patient.[facility] GeneralIn the event this information is protected by the Federal Confidentiality of Alcohol and Drug Abuse Patient Records regulations: The Federal rules restrict any use of the information to criminally investigate or prosecute any alcohol or drug abuse patient.[facility] GeneralIn the event this information is protected by the Federal Confidentiality of Alcohol and Drug Abuse Patient Records regulations: The Federal rules restrict any use of the information to criminally investigate or prosecute any alcohol or drug abuse patient.[facility] GeneralIn the event this information is protected by the Federal Confidentiality of Alcohol and Drug Abuse Patient Records regulations: The Federal rules restrict any use of the information to criminally investigate or prosecute any alcohol or drug abuse patient.[facility] GeneralIn the event this information is protected by the Federal Confidentiality of Alcohol and Drug Abuse Patient Records regulations: The Federal rules restrict any use of the information to criminally investigate or prosecute any alcohol or drug abuse patient.[facility] GeneralIn the event this information is protected by the Federal Confidentiality of Alcohol and Drug Abuse Patient Records regulations: The Federal rules restrict any use of the information to criminally investigate or prosecute any alcohol or drug abuse patient.[facility] GeneralIn the event this information is protected by the Federal Confidentiality of Alcohol and Drug Abuse Patient Records regulations: The Federal rules restrict any use of the information to criminally investigate or prosecute any alcohol or drug abuse patient.[facility] GeneralIn the event this information is protected by the Federal Confidentiality of Alcohol and Drug Abuse Patient Records regulations: The Federal rules restrict any use of the information to criminally investigate or prosecute any alcohol or drug abuse patient.[facility] GeneralIn the event this information is protected by the Federal Confidentiality of Alcohol and Drug Abuse Patient Records regulations: The Federal rules restrict any use of the information to criminally investigate or prosecute any alcohol or drug abuse patient.[facility] GeneralIn the event this information is protected by the Federal Confidentiality of Alcohol and Drug Abuse Patient Records regulations: The Federal rules restrict any use of the information to criminally investigate or prosecute any alcohol or drug abuse patient.[facility] GeneralIn the event this information is protected by the Federal Confidentiality of Alcohol and Drug Abuse Patient Records regulations: The Federal rules restrict any use of the information to criminally investigate or prosecute any alcohol or drug abuse patient.[facility] GeneralIn the event this information is protected by the Federal Confidentiality of Alcohol and Drug Abuse Patient Records regulations: The Federal rules restrict any use of the information to criminally investigate or prosecute any alcohol or drug abuse patient.[facility] Reason for Visit (unrecogniz ed section and content) ReasonCommentsInsurance InquiryReasonCommentsMed RefillReasonCommentsMedication ProblemReasonCommentsFollow UpReasonCommentsConsultReasonCommentsResultsReason CommentsCystoscopy-1ReasonCommentsPatient UpdateSpecialtyDiagnoses / Procedures Referred By ContactReferred To ContactMCK[facility] Diagnoses Decompensated heart failure (HCC) Mitral valve regurgitation due to cardiomyopathy (HCC) Decompensated heart failure (HCC) Procedures [address] [place] [address] IP/OBS CARE HIGH MDM 75 MINUTES MEDICATION MANAGEMENT CONSULTS [facility] [address] [id number] Referral IDStatusReasonStart DateExpiration DateVisits RequestedVisits [id number] RequestReasonCommentsFollow UpReason CommentsCystoscopy-1Patient EducationReasonCommentsGynecologic ExamMedicare off year.LMP: MIR SHEFFIELD 1983HRT: NoneLast pap 07-24-23 neg.[place] [facility] [place] sure when she can do it d/t cardiac issues.Denies breast, urinary, or bowel concerns.ReasonCommentsUrinary FrequencyReasonOnset DateCommentsMed Refill 09/20/2024ReasonCommentsFollow-upReasonCommentsNauseaCoughConjunctivitisReason CommentsRight Flank PainUrinary FrequencydysuriaReasonOnset DateCommentsMed Kdyjhm5101/13/2025ReasonCommentsER Follow-upReasonCommentsImmunizationsDeclines at this timeUTIReasonOnset XtqyVdqzqtfbXzeyk40/06/2025On callReasonCommentsUTI ImmunizationsDeclines at this timeReasonCommentsImmunizationsDeclines at this time Inactive Administered Medications - up to 3 most recent administrations Administered Medications (un recognized section and content) Medication OrderMAR ActionAction DateDoseRateSite nitrofurantoin monohydrate and macrocrystal 100 mg cap(s) (MACROBID) 100 mg, ORAL, ONCE, 1 dose, On 10/15/23 at 2100, Swallow whole; DO NOT crush, chew, or open., Antimicrobial indication: Empiric Given10/16/2023 8:28 AM [id number] mgOral FOR RECORDS PERTAINING TO PATIENTS WHO ARE [...] BE BASED ON THE PRIMARY CLINICAL RECORDS. [employer] provides no warranty or guarantee of the accuracy or completeness of information in this document.
[2025-06-03 07:07] LABS: Magnesium 1.8 mg/dL (1.8-2.4)
[2025-06-03] MEDS: 0.9 % SODIUM CHLORIDE 1,000 ML 125 ML IV ×2 (07:36→19:34)
[2025-06-03] MEDS: METOCLOPRAMIDE HCL 10 MG/2 ML VIAL 5 MG IVP (09:12)
--- NOTE | 2025-06-03 09:37 | SWNOTE1 ---
SW met with pt to discuss dc needs. Pt lives at home by herself. Her daugher lives in [place]. She usually stays with her daughter for a day or 2 after she has any surgery, but she did not this last surgery. She voiced she should have went to rehab for a bit as she does feel weak. She stated she is normally independent and drives and goes out with her friends. She does not use any DME at home. SW did explain to pt that in order for Medicare to pay for her rehab she would need a 3 day inpt stay. Unless pt qualifies for acute rehab. Pt then stated she does not even know if she can do any exercises right now as she is hurting. Pt then asked SW about her blood pressure medication and her other medication. She stated her nurse is looking in to getting her morning meds. SW to follow up with nurse. SW advised pt that SW will be back later today or tomorrow morning to see how pt is feeling and if she is getting around. Pt may have needs at discharge, SW to continue to follow.
--- NOTE | 2025-06-03 09:41 | SWNOTE1 ---
Important Message from Medicare reviewed and discussed with patient. Pt. verbalized understanding and signed the form. Original given to patient and copy placed in patient?s chart.
[2025-06-03 09:53] LABS: Hematocrit 40.9 % (36.0-48.0); Hemoglobin 13.2 g/dL (12.0-16.0)
--- NOTE | 2025-06-03 10:00 | CM.NOTE ---
Rounds made with Dr. Mtz, discussed with pt diagnosis and plan of care. Pt is inpatient status, no discharge today. Cardiology to consult on pt.
[2025-06-03] MEDS: LORAZEPAM 0.5 MG TABLET PO ×2 (11:20→19:35)
--- NOTE | 2025-06-03 11:35 | PM.IMHP1 ---
Internal Medicine - H&P: HPI History of Present Illness Chief complaint: HEMHROIDS HURTING HER, COLITIS Narrative: This is a 75-year-old female with past medical history of C. difficile, pacemaker in place, anxiety, valvular A-fib, status post mitral valve clip as well as recent transcatheter elge-wj-iveh repair on her tricuspid valve on 05/27/2025 at [facility]. Initially came to the ED yesterday around morning time for night sweats, weakness, and fever along with some urinary symptoms. She did have constipation at the time, all of the lab work was nonrevealing and patient was sent on bowel regimen. Patient states that as soon as she got home she had abdominal pain described as cramps and contractions followed by multiple bouts of blood with some stools in it. The blood was bright blood. She thought initially it was her hemorrhoids however this happened like for a few episodes that decided to come to the hospital for further workup and management. She also mentions having nausea but no vomiting. In the ED, patient's white blood cell was 12,000, with left shift. Hemoglobin was stable at 13 very similar to her baseline. Platelets were 196,000. Chemistry did show slight bump in creatinine today. Patient was worried that this is due to C. difficile which is still pending here in our labs. When I saw her she said that she did not have any bowel movement since last night 11 PM. Her hemoglobin has been stable today. No nausea no vomiting. I reviewed her CT scan abdomen pelvis that did show distal wall thickening with stranding in the presacral space along with surgical anastomosis at the rectosigmoid junction with distal colitis noted affecting the rectosigmoid colon junction distal to the surgical anastomosis from infectious or inflammatory etiology. Patient being admitted under hospitalist service for further workup and management Review of Systems ROS Status of ROS 10 or more systems reviewed and unremarkable except as noted in history and below [facility] Medical History (Updated 06/03/25 @ 07:20 by Treva Buitrago RN) C. difficile diarrhea ?A04.72 - Enterocolitis due to Clostridium difficile, not specified as recurrent (ICD-10) Anxiety ?F41.9 - Anxiety disorder, unspecified (ICD-10) Endometriosis ?N80.9 - Endometriosis, unspecified (ICD-10) Pacemaker ?Z95.0 - Presence of cardiac pacemaker (ICD-10) Surgical History (Updated 06/03/25 @ 07:19 by Treva Buitrago RN) History of cataract surgery ?Z98.49 - Cataract extraction status, unspecified eye (ICD-10) History of hysterectomy ?Z90.710 - Acquired absence of both cervix and uterus (ICD-10) H/O cardiac ablation ?Z98.890 - Other specified postprocedural states (ICD-10) Status post implantation of mitral valve leaflet clip ?Z98.890 - Other specified postprocedural states (ICD-10) ?Z95.818 - Presence of other cardiac implants and grafts (ICD-10) S/P insertion of tricuspid valve leaflet clip ?Z95.818 - Presence of other cardiac implants and grafts (ICD-10) Family History (Updated 06/03/25 @ 06:35 by Treva Buitrago, ROCÍO) Mother Family history of CHF (congestive heart failure) Family history of diabetes mellitus Sister Atrial fibrillation Social History (Updated 06/03/25 @ 06:36 by Treva Buitrago RN) Within the past year, how often did you have a drink containing alcohol: monthly or less Within the past year, how many standard drinks containing alcohol did you have on a typical day: 1 or 2 Within the past year, how often did you have six or more drinks on one occasion: never Total score: 0 Score interpretation: A score less than 3 is consistent with normal alcohol consumption. Smoking status: Former smoker Non-prescribed substance use: denies use Highest level of school completed/degree received: 9th grade Are you now , , , , never or living with a partner: Little interest or pleasure in doing things: not at all Feeling down, depressed, or hopeless: not at all Feel stressed/tense/nervous/anxious/difficulty sleeping: not at all Do you think of yourself as: straight/heterosexual Gender Identity: female Meds Home Medications and Allergies Home Medications ?Medication ?Instructions ?Recorded ?Confirmed ?Type atorvastatin 40 mg tablet 40 mg PO .QHS 10/15/23 06/03/25 History lorazepam 0.5 mg tablet 0.5 mg PO TID PRN anxiety 10/15/23 06/03/25 History spironolactone 25 mg tablet 12.5 mg PO DAILY 10/15/23 06/03/25 History apixaban 5 mg tablet (Eliquis) 5 mg PO BID 06/01/24 06/03/25 History carvedilol 6.25 mg tablet 6.25 mg PO BID 01/19/25 06/03/25 History famotidine 20 mg tablet 20 mg PO .QHS 06/02/25 06/03/25 History Allergies Allergy/AdvReac Type Severity Reaction Status Date / Time meperidine (From Demerol) Allergy Intermediate Agitated Verified 06/02/25 10:58 Exam Narrative Exam Narrative: General:The patient appears well and in no apparent distress.Patient is resting comfortably in bed but slightly anxious Skin:Warm, dry, no pallor noted.There is no rash noted. Head:Normocephalic, atraumatic Eye: Normal conjunctiva, no drainage Ears, Nose, Mouth, and Throat: oral mucosa is moist. Nares patent. Cardiovascular: Not tachycardic Respiratory:Patient is in no distress, no accessory muscle use, lungs are clear to auscultation, no wheezing, rales or rhonchi Back:non-tender GI: Soft and nontender. I did a QIANA in the presence of a female speeder machine operator after getting the patient's consent, patient does have skin tag outside as well as internal hemorrhoids I could feel. Did have slight brown stool on my digital exam Musculoskeletal: The patient has no evidence of calf tenderness, no pitting edema, symmetrical pulses noted bilaterally Neurological: Awake and alert, no focal deficits, cranial nerves II to XII are intact Constitutional Vital Signs, click to edit/add: Last Vital Signs Temp 98.1 F 06/03/25 11:11 Pulse 72 06/03/25 11:11 Resp 18 06/03/25 07:06 BP 114/73 06/03/25 11:11 Pulse Ox 96 06/03/25 11:11 O2 Del Method Room Air 06/03/25 11:11 Internal Medicine - H&P: Reslt Labs Labs: Short CBC 06/03/25 06/03/25 Range/Units 00:10 09:46 WBC 12.1 H (4.0-11.0) 10^3/uL Hgb 13.2 13.2 (12.0-16.0) g/dL Hct 40.2 40.9 (36.0-48.0) % Plt Count 196 (150-450) 10^3/uL BMP 06/03/25 00:10 Sodium 133 L Potassium 3.9 Chloride 97 L Carbon Dioxide 29.0 BUN 18.0 Creatinine 1.07 H Glucose 127 H Calcium 9.4 Urinary Catheter Management Urinary Catheter Management Urethral: Cath placed during this visit: yes Urethral indwelling: Yes Reason for continuing: not indwelling catheter Insertion date: 06/03/25 Insertion time: 02:17 Assessment and Plan Assessment and Plan (1) Colitis: (2) Hematuria: Plan Hematochezia likely in the setting of colitis Diverticular bleed is less likely given the patient's hemodynamic stability, internal hemorrhoids could be another reason This is exacerbated by anticoagulation use on Eliquis however he H&H are still A-fib on anticoagulation s/p tricuspid valve repair Rule out C. difficile - Admit patient to medical floor - Obtain H&H every 12 hours for today - Place the patient on Lovenox 1 mg/kg twice daily just in case hemoglobin drops or the patient become hemodynamically unstable - Consult cardiology for further assistance - C. difficile workup is pending - Discussed the plan with the patient she is in agreement with the plan - She is full code admitted at discharge - Continuing IV ciprofloxacin as well as IV metronidazole for now - Patient was asking to get her lorazepam restarted which I did right after I saw her
[2025-06-03 11:43] LABS: C. Difficile PCR POSITIVE
[2025-06-03] MEDS: METRONIDAZOLE/SODIUM CHLORIDE 500 MG/100 ML PREMIX 100 MG IV ×2 (13:12→22:05)
[2025-06-03] MEDS: ENOXAPARIN SODIUM 60 MG/0.6 ML SYRINGE SUBQ ×2 (13:12→22:05)
[2025-06-03] MEDS: VANCOMYCIN HCL 7,500 MG/150 ML BOTTLE 125 MG PO ×3 (13:13→22:06)
--- OUTSIDE RECORDS SUMMARY | 2025-06-03 14:14 | XMS_ITS | CCD ---
Author Organization [facility] Care Team Providers Care [place] Shearer Name Role Phone Peggy Nazario Primary Care Physician [phone] Micheline Sorto MD Unavailable Johan Henriquez MD Unavailable Peggy Nazario Primary Care Provider [phone] Peggy Nazario MD Unavailable [phone] Peggy Nazario MD Primary Care Provider Alea Harley MD Unavailable Alea Harley MD Unavailable Hannah Brian Primary Care Physician [phone] Peggy Nazario Primary Care Provider [phone] Johan HENRIQUEZ Admitting Unavailable Johan HENRIQUEZ Consulting Unavailable Johan HENRIQUEZ Attending Unavailable Johna HENRIQUEZ Referring Unavailable Johan HENRIQUEZ Consulting Unavailable Johan HENRIQUEZ Consulting Unavailable Hannah Brian Admitting Unavailable Hannah Brian Attending Unavailable Hannah Brian Referring Unavailable PATTY YAO Admitting Unavailable PATTY YAO Attending Unavailable Nahid SERRATO Attending Unavailable Eb Goff Consulting Unavaila DO Noman Cooper Admitting UnavailMD Eb Walter Consulting Unava ilable Eb Goff Consulting Unavaila ble [facility] Cardio, XXXX Consulting Unavailable Koby Masterson Attending [...] Attending Unavailable ALEA HARLEY Referring Unavailable NAZARIO, [facility] Primary Care Unavailabl e VASAVADA, RAPHAEL P Referring Unavailable VASAVADA, RAPHAEL P Attending Unavailable NAZARIO, PEGGY JAYDE Primary Care Unavailabl e NAZARIO, [facility] Primary Care Unavailabl e HAMMALEA GAITAN F Referring Unavailable NAZARIO, [facility] Primary Care Unavailabl e NITHYA, MICHELINE Referring Unavailable NAZARIO, [facility] Primary Care Unavailabl e VASAVADA, RAPHAEL P Attending Unavailable SELF Referring Unavailable ALEA HARLEY Referring Unavailable NAZARIO, [facility] Primary Care Unavailabl e ANA RIVAS Attending Unavailable NAZARIO, [facility] Primary Care Unavailabl e NAZARIO, [facility] Primary Care Unavailabl e NITHYA, MICHELINE Attending Unavailable NITHYA, MICHELINE Referring Unavailable YECENIA GLEZ Admitting Unavailable NAZARIO, [facility] Primary Care Unavailabl e YECENIA GLEZ Attending Unavailable NAZARIO, [facility] Primary Care Unavailabl e NITHYA, MICHELINE Referring Unavailable NITHYA, MICHELINE Referring Unavailable NAZARIO, [facility] Primary Care Unavailabl e NITHYA, MICHELINE Referring Unavailable GIANNI VILLALBA Attending Unavailable NAZARIO, [facility] Primary Care Unavailabl e NITHYA, MICHELINE Referring Unavailable NAZARIO, PEGGY JAYDE Primary Care Unavailabl e NAZARIO, [facility] Primary Care Unavailabl e VASAVADA, RAPHAEL P Referring Unavailable VASAVADA, RAPHAEL P Attending Unavailable NITHYA, MICHELINE Referring Unavailable ALEA HARLEY Attending Unavailable NAZARIO, [facility] Primary Care Unavailabl e NAZARIO, [facility] Primary Care Unavailabl e VASAVADA, RAPHAEL P Attending Unavailable SELF Referring Unavailable Snehal MCMAHON, Hannah De Leon Primary Care Provider Peggy Nazario MD Primary Care Provider aHnnah Brian MD Primary Care Provider PATTY YAO [...] Attending Unavailable STEPHAN BOO Attending Unavailable RICKIE AIVLES Attending Unavailab le SNEHAL, HANNAH De Leon [...] of OnsetReaction(s) Facility (20 sources)Cephalexin; Translations: [cephalexin]Drug Inczovc49-71-4214LY intolerance, [facility] (20 sources)Egg; Translations: [Eggs]Food allergyUnknown (qualifier value)[facility] (20 sources)Meperidine; Translations: [meperidine]Drug Brfohmp55-51-7303Mlokovp (disorder), Other: See [facility] (20 sources)Morphine; Translations: [morphine]Drug Xwundph01-48-9988Wprakph [facility] (20 sources)Sulfonamides (Antibiotic); Translations: [sulfa drugs]Drug allergy [facility] (2 sources)Aspirin; Translations: [ASPIRIN]Drug Fvwbvji50-96-8902Prcnm: See [facility] (9 sources)Latex; Translations: [LATEX]Drug Ryzsiztuvuv86-27-1775Ipig, Hives [facility] (20 sources)Aluminum aspirinDrug Cdkkely38-94-0127[facility] (20 sources)Amoxicillin; Translations: [AMOXICILLIN]Drug Rhgqvvn02-16-5737 [facility] (20 sources)Erythromycin; Translations: [ERYTHROMYCIN]Drug Rserxqd28-65-8983 UnknownPike County Memorial Hospital (20 sources)LatexPropensity to adverse oxhtcptkn38-74-4447Rdinv, RashPike County Memorial Hospital (20 sources)MeperidineDrug Metomng62-73-0646GsiyekySMCC Healthcare (20 sources)Sulfonamides (Antibiotic)Drug Gsqgfwk70-11-4077AU intolerance, IntolerancePike County Memorial Hospital (20 sources)WHEAT DEXTRIN; Translations: [WHEAT BRAN]Drug Djihasz72-65-3369NQJM [facility] (20 sources)WHEAT DEXTRINDrug Iwhigct62-19-8619RV[facility] (5 sources)Eggs Or Egg-Derived ProductsDrug Kvsdpdb61-92-2629H[facility] (15 sources)egg extract; Translations: [EGG]Drug Atxvlvo84-41-7433Batnpeesnrk, GI UpsetOhiohealth O'Bleness Hospital (4 sources)Meperidine; Translations: [Demerol HCl][facility] (2 sources)Sulfonamides (Antibiotic); Translations: [SULFA (SULFONAMIDE ANTIBIOTICS)]Propensity to adverse reactions to drug (disorder)07-24-2023 [facility] [place] Repository (20 sources)empagliflozin; Translations: [EMPAGLIFLOZIN]Drug Kfppyes52-30-0189 AngioedemaPike County Memorial Hospital Work Phone: (20 sources)Egg-Derived ProductsDrug Dezjmzh42-40-6614QWWH [facility] (20 sources)Amiodarone; Translations: [AMIODARONE]Drug Ctgrzoi25-05-9764Hgmiwp And VomitingNOMS Healthcare (20 sources)Valsartan; Translations: [VALSARTAN]Propensity to adverse reactions 50-02-5592ZCO[facility] (3 sources)Egg Protein-Containing Drug ProductsDrug Rqctptj10-66-1659L[facility] (1 source)Penicillins; Translations: [PENICILLINS]Propensity to adverse reactions to drug (disorder)78-26-5625VphjgnlqqhChildren[facility] (1 source)EGG DERIVED; Translations: [EGG DERIVED]Propensity to adverse reactions to drug (disorder)20-33-4558CopxxbexcdChildren's Hospital of [facility] Medications Current Medications MedicationDrug Class(es)DatesSig (Normalized)Sig (Original)amoxicillin 500 mg / clavulanate 125 mg oral tablet (2 sources)Penicillin-class AntibacterialStart: 07-19-2023 End: 47-39-9578Lxlcvzayu 500 mg-125 mg Tab 1 tab(s), Oral, q24hr for 14 day(s), 14 tab(s), Refill(s) 0, [facility] #[facility], 165, cm, 07/19/23 15:21:00 EST, Height/Length Dosing, 54.4, kg, 07/19/23 15:21:00 EST, Weight Dosing Start Date: 07/19/23 Stop Date: 08/02/23 Status: Orderedapixaban 5 mg oral tablet (20 sources)Factor Xa InhibitorStart: 07-11-2023 End: 15-74-7901rdms 1 tablet by mouth in the morningEliquis 5 MG tablet Take 5 mg by mouth in the morning and 5 mg before bedtime. 07/11/2023 ActiveStart: 71-15-9091gtcr 1 tablet by mouth twice dailyEliquis 5 mg oral tablet 5 mg = 1 tab(s), Oral, BID, # 60 tab(s), Refills(s) 0, [id number], 165, cm, 07/02/23 21:30:00 EST, Height/Length Dosing, 55.7, kg, 07/02/23 21:30:00 EST, Weight Dosing Start Date: 07/11/23 Status: OrderedStart: 78-75-1648lyjt 1 tablet by mouth twice dailyEliquis 5 mg oral tablet 5 mg = 1 tab(s), Oral, BID, # 60 tab(s), Refills(s) 0, [id number], 165, cm, 07/02/23 21:30:00 EST, Height/Length Dosing, 55.7, kg, 07/02/23 21:30:00 EST, Weight Dosing Start Date: 07/11/23 Status: OrderedStart: 76-40-8329bpns 1 tablet by mouth twice dailyEliquis 5 mg oral tablet 5 mg = 1 tab(s), Oral, BID, # 60 tab(s), Refills(s) 0, [id number], 165, cm, 07/02/23 21:30:00 EST, Height/Length Dosing, 55.7, kg, 07/02/23 21:30:00 EST, Weight Dosing Start Date: 07/11/23 Status: OrderedComment on above:Take 1 tablet by mouth two times a day.Take 5 mg by mouth two times a day. atorvastatin 40 mg oral tablet (20 sources)HMG-CoA Reductase InhibitorStart: 07-05-2023 End: 67-29-4433lgty 1 tablet by mouth once dailyLipitor 40 MG tablet Take 40 mg by mouth Daily 07/05/2023 ActiveComment on above:Take 1 tablet by mouth daily at bedtime.Take 40 mg by mouth once daily.carvedilol 3.125 mg oral tablet (20 sources)alpha-Adrenergic Yolette, beta-Adrenergic BlockerStart: 07-03-2024 carvedilol (Coreg) 6.25 MG tablet 07/03/2024 ActiveStart: 11-02-2023 End: 17-53-0255ozlc 1 tablet by mouth in the morningcarvedilol (Coreg) 3.125 MG tablet Take 3.125 mg by mouth in the morning and 3.125 mg in the evening. Take with meals. 08/20/2024 ActiveStart: 50-27-1132ggay 1 tablet by mouth twice daily at mealtimecarvedilol (COREG) 12.5 mg tablet Take 1 tablet by mouth two times a day with meals. 180 tablet 1 08/31/2023 ActiveStart: 07-05-2023 End: 84-50-9140rdvh 1 tablet by mouth in the morningcarvedilol (Coreg) 3.125 MG tablet Take 3.125 mg by mouth in the morning and 3.125 mg in the evening. Take with meals. 07/05/2023 09/01/2023 Discontinued (Alternate therapy)Start: 07-05-2023 End: 98-98-0547ocwu 1 tablet by mouth twice dailycarvedilol 3.125 mg Tab 3.125 mg = 1 tab(s), Oral, BID, X 14 day(s), # 28 tab(s), Refills(s) 0, Pharmacy: [facility] #[facility], 165, cm, 10/05/23 18:07:00 EST, Height/Length [...] oral tablet (9 sources)Quinolone AntimicrobialStart: 04-07-2025 End: 46-09-4256audq 1 tablet by mouth in the morningciprofloxacin (Cipro) 250 MG tablet Indications: Left lower quadrant pain Take 1 tablet (250 mg) bymouth in the morning and 1 tablet (250 mg) before bedtime. Do all this for 7 days. 14 tablet 04/07/2025 04/14/2025 ActiveStart: 66-70-5569Xwmjh 500 mg Tab 500 mg = 1 tab(s), Oral, As Directed, Patient to take 1 tab the day before procedure and the 2nd tab the day of procedure once completed, # 2 tab(s), Refills(s) 0, Pharmacy: [facility] #[id number], 165, cm, 04/26/23 15:23:00 EDT, Height/Length Dosing, 54.7, kg, 04/26/23 15:23:00 EDT, Weight Dosing Start Date: 04/26/23 Status: OrderedStart: 00-86-9410nlty 1 tablet by mouth once dailyCipro 500 mg Tab 500 mg = 1 tab(s), Oral, Daily, Take 1 tablet the day before the procedure and 1 tablet after the procedure, # 2 tab(s), Refills(s) 0, Pharmacy: [facility], 165, cm, 10/03/22 14:34:00 EST, Height/Length Dosing, 54.7, kg, 10/03/22 14:34:00 E... Start Date: 10/14/22 Status: OrderedStart: 11-48-0696tmkr 1 tablet by mouth once dailyCipro 500 mg Tab 500 mg = 1 tab(s), Oral, As Directed, Take 1 tablet day before procedure, and then1 tablet day of procedure after procedure, # 2 tab(s), Refills(s) 0, Pharmacy: [facility], 165, cm, 03/03/22 10:04:00 EDT, Height/Length Dosing, 54, kg, 02/12... Start Date: 03/03/22 Status:Ordereddexamethasone 1 mg/ml / neomycin 3.5 mg/ml / polymyxin b 24771 unt/ml ophthalmic suspension (20 sources)Aminoglycoside Antibacterial, Polymyxin-class Antibacterial, CorticosteroidStart: 91-23-3916qzeubvpp-polymyxin-dexAMETHasone (Maxitrol) 3.5-85169-2.1 ophthalmic suspension 10/30/2024 ActiveStart: 96-91-3870dfay 1 drop(s) into the eye(s) four times rjaseyeabcbhe-molvoovba-xszCFZJVjtmbo (Maxitrol) 3.5-75550-2.1 ophthalmic suspension INSTILL 1 DROP intoaffected eye FOUR TIMES DAILY FOR 14 DAYS 10/30/2024 Activedicyclomine hydrochloride 10 mg oral capsule (1 source)AnticholinergicStart: 07-01-2023 End: 05-65-8918ojnh 1 capsule by mouth four times dailyBentyl 10 mg Cap 10 mg = 1 cap(s), Oral, QID, X 7 day(s), # 14 cap(s), Refills(s) 0, [id number], 165, cm, 06/30/23 19:37:00 EST, Height/Length Dosing, 55.7, kg, 06/30/23 19:37:00 EST, Weight Dosing Start Date: 07/01/23 Stop Date: 07/08/23 Status: Orderedestradiol 0.1 mg/ml vaginal cream (13 sources)EstrogenStart: 74-03-2706Jhsfqbu 0.1 mg/g Cream 0.5 gm, Vaginal, MonFri, 42.5 gm, Refill(s) 6 Start Date: 04/26/23 Status: OrderedStart: 82-25-1961Wzejhva 0.1 mg/g Cream 1 gm, Vaginal, Once a day (at bedtime), 42.5 gm, Refill(s) 6, [facility], 165.1, cm, 01/28/23 21:34:00 EDT, Height/Length Dosing, 54.5, kg, 01/28/23 21:34:00 EDT, Weight Dosing Start Date: 03/20/23 Status: OrderedStart: 96-55-7919ilmsnejzj 0.1 mg/g vaginal cream 1 gm, Vaginal, MonFri, # 42.5 gm, Refills(s) 6, Pharmacy: [facility], 165, cm, 03/03/22 10:04:00 EDT, Height/Length Dosing, 54, kg, 03/03/22 10:04:00 EDT, Weight Dosing Start Date: 03/03/22 Status: OrderedStart: 02-26-2021 End: 40-64-0475zitsnfdwe (ESTRACE) 0.01 % (0.1 mg/gram) vaginal cream Use 1 g vaginally. 0 02/26/2021 08/28/2023 Discontinued (Course of therapy completed) Start: 37-38-9290ezlzvmkfa 0.1 mg/g vaginal cream 1 gm, Vaginal, MonFri, # 42.5 gm, Refills(s) 6, Pharmacy: [facility], 165, cm, 02/23/21 13:24:00 EDT, Height/Length Dosing, 54, kg, 02/23/21 13:24:00 EDT, Weight Dosing Start Date: 02/26/21 Status: OrderedStart: 10-22-2012 End: 42-09-2840czkohghgp 0.01 % (0.1 mg/g) vaginal cream Use a pea sized drop on finger, once every other day 1 Tube 11 10/22/2012 08/28/2023 Discontinued (Course of therapy completed)Comment on above:Use a pea sized drop on finger, once every other dayUse 1 g vaginally.estradiol 0.1 mg/g vaginal cream (9 sources)Start: 85-62-1039pzfnjgvhh 0.1 mg/g vaginal cream 1 gm, Vaginal, MonFri, # 42.5 gm, Refills(s) 6, Pharmacy: [facility], 165, cm, 03/03/22 10:04:00 EDT, Height/Length Dosing, 54, kg, 03/03/22 10:04:00 EDT, W eight Dosing Start Date: 03/03/22 Status: OrderedStart: 86-42-4097onaviefve 0.1 mg/g vaginal cream 1 gm, Vaginal, MonFri, # 42.5 gm, Refills(s) 6, Pharmacy: [facility], 165, cm, 02/23/21 13:24:00 EDT, Height/Length Dosing, 54, kg, 02/23/21 13:24:00 EDT, Weight Dosing Start Date: 02/26/21 Status: Ordered famotidine 20 mg oral tablet (20 sources)Histamine-2 Receptor AntagonistStart: 05-14-2025 End: 20-86-1905ecmd 1 tablet by mouth at bedtimefamotidine (Pepcid) 20 MG tablet Indications: Gastroesophageal reflux disease without esophagitis Take 1 tablet (20 mg) by mouth at bedtime 90 tablet 3 05/14/2025 05/14/2026 ActiveStart: 07-03-2024 End: 83-37-7026bydm 1 tablet by mouth at bedtimefamotidine (Pepcid) 40 MG tablet Indications: Gastroesophageal reflux disease without esophagitis Take 1 tablet (40 mg) by mouth at bedtime 30 tablet 04/07/2025 05/14/2025 Discontinued (Reorder)lactulose 667 mg/ml oral solution (1 source)Osmotic LaxativeStart: 11-22-2023 End: 58-28-6973fqnw 13.333 g by mouth once dailylactulose 10 g/15 mL Oral Syrup 13.333 gm = 20 mL, Oral, Daily, X 5 day(s), # 100 mL, Refills(s) 0,Pharmacy: [facility] #[facility], 165, cm, 11/22/23 16:28:00 EDT, Height/Length Dosing, 49.8, kg, 11/22/23 16:28:00 EDT, Weight Dosing Start Date: 11/22/23 Stop Date: 11/27/23 Status: Orderedlidocaine hydrochloride 0.02 mg/mg topical gel (1 source)Antiarrhythmic, Amide Local AnestheticStart: 06-27-2024 End: 45-49-0757wiaduwlcz urojet 2 % 11 mL topical gel (GLYDO)lisinopril 10 mg oral tablet (11 sources)Angiotensin Converting Enzyme InhibitorStart: 09-26-2023 End: 56-78-7617ista 0.5 tablet by mouth once dailylisinopril (ZESTRIL) 10 mg tablet Indications: Non-rheumatic mitral regurgitation , Persistent atrial fibrillation (HCC) , Non-ischemic cardiomyopathy (HCC) , Chronic HFrEF (heart failure with reduced ejection fraction) (HCC) take 1/2 tablet by mouth once daily 45 tablet 12/22/2023 ActiveComment on above:Take 0.5 tablets by mouth once daily.LORazepam 0.5 mg oral tablet (20 sources)BenzodiazepineStart: 2025 End: 70-14-4839sigp 1 tablet by mouth every eight hours as needed for anxiety and anxiety and anxietyLORazepam (Ativan) 0.5 MG tablet Indications: Anxiety TAKE 1 TABLET BY MOUTH EVERY 8 HOURS NEEDED FOR ANXIETY 90 tablet 04/17/2025 ActiveStart: 87-36-8378kbas 1 tablet by mouth every eight hours as needed for anxiety and anxiety and anxietyLORazepam (Ativan) 0.5 MG tablet Indications: Anxiety Take 1 tablet (0.5 mg) by mouth every 8 (eight) hours if needed for anxiety 90 tablet 01/16/2025 ActiveStart: 79-12-4883vbif 1 tablet by mouth every eight hours as needed for anxiety and anxiety and anxietyLORazepam (Ativan) 0.5 MG tablet Indications: Anxiety Take 1 tablet (0.5 mg) by mouth every 8 (eight) hours if needed for anxiety 90 tablet 01/13/2025 ActiveStart: 11-20-2024 End: 27-24-3992jhmg 1 tablet by mouth every eight hours as needed for anxiety and anxiety and anxietyLORazepam (Ativan) 0.5 MG tablet Indications: Anxiety TAKE 1 TABLET BY MOUTH EVERY 8 HOURS NEEDED FOR ANXIETY 90 tablet 12/17/2024 01/13/2025 Discontinued (Reorder)Start: 27-85-3766qcgg 1 tablet by mouth every eight hours as needed for anxiety and anxiety and anxietyLORazepam (Ativan) 0.5 MG tablet Indications: Anxiety Take 1 tablet (0.5 mg) by mouth every 8 (eight) hours if needed for anxiety Do not start before November 20, 2024. 90 tablet 11/20/2024 ActiveStart: 10-21-2024 End: 98-04-1922ztmp 1 tablet by mouth every eight hours as needed for anxiety and anxiety and anxietyLORazepam (Ativan) 0.5 MG tablet Indications: Anxiety Take 1 tablet (0.5 mg) by mouth every 8 (eight) hours if needed for anxiety 90 tablet 10/21/2024 11/18/2024 DiscontinuedStart: 64-87-3675wqzc 1 tablet by mouth every eight hours as needed for anxiety and anxiety and anxietyLORazepam (Ativan) 0.5 MG tablet Indications: Anxiety Take 1 tablet (0.5 mg) by mouth every 8 (eight) hours if needed for anxiety 90 tablet 09/23/2024 ActiveStart: 40-48-9364qqnb 1 tablet by mouth every eight hours as needed for anxiety and anxiety and anxietyLORazepam (Ativan) 0.5 MG tablet Indications: Anxiety Take 1 tablet (0.5 mg) by mouth every 8 (eight) hours if needed for anxiety Do not start before August 25, 2024. 90 tablet 08/25/2024 ActiveStart: 95-75-4571kakq 1 tablet by mouth every eight hours as needed for anxiety and anxiety and anxietyLORazepam (Ativan) 0.5 MG tablet Indications: Anxiety Take 1 tablet (0.5 mg) by mouth every 8 (eight) hours if needed for anxiety Do not start before August 25, 2024. 90 tablet 08/25/2024 ActiveStart: 06-25-2024 End: 30-41-3407kdtq 1 tablet by mouth every eight hours as needed for anxiety and anxiety and anxietyLORazepam (Ativan) 0.5 MG tablet Indications: Anxiety TAKE 1 TABLET BY MOUTH EVERY 8 HOURS NEEDED FOR ANXIETY 90 tablet 07/23/2024 08/20/2024 DiscontinuedStart: 07-10-2023 End: 33-06-4469rrsx 1 tablet by mouth every six hours for anxiety and anxiety LORazepam (Ativan) 1 MG tablet Indications: Anxiety Take 1 tablet (1 mg) by mouth every 6 (six) hours. 120 tablet 1 07/10/2023 09/15/2023 DiscontinuedStart: 08-03-2011 End: 15-93-5892MSBkvufae (ATIVAN) 0.5 mg Take 0.5 mg by mouth. 0 08/03/2011 08/28/2023 Discontinued (Patient chooses alternative therapy)Start: 12-14-2005 End: 37-70-3024YDDEPZ 0.5 MG TAB Take one(1) tablet two(2) times daily. 0 12/14/2005 08/28/2023 Discontinued (Patient chooses alternative therapy)Comment on above:Take one(1) tablet two(2) times daily.Take 1 mg by mouth every 6 hours as needed for anxiety.Take 0.5 mg by mouth.metroNIDAZOLE 500 mg oral tablet (2 sources)Nitroimidazole AntimicrobialStart: 04-07-2025 End: 60-36-5927wkud 1 tablet by mouth in the morningmetroNIDAZOLE (Flagyl) 500 MG tablet Indications: Left lower quadrant pain Take 1 tablet (500 mg) by mouth in the morning and 1 tablet (500 mg) before bedtime. Do all this for 7 days. 14 tablet 04/07/2025 04/14/2025 Activenitrofurantoin, macrocrystals 25 mg / nitrofurantoin, monohydrate 75 mg oral capsule (3 sources)Nitrofuran AntibacterialStart: 08-12-2024 End: 54-79-9394wmmt 1 capsule by mouth in the morningnitrofurantoin, macrocrystal-monohydrate, (Macrobid) 100 MG capsule Indications: Dysuria , Urinary frequency Take 1 capsule (100 mg) by mouth in the morning and 1 capsule (100 mg) before bedtime. Do all this for 5 days. 10 capsule 08/12/2024 08/17/2024 ActiveStart: 10-15-2023 End: 64-39-1335tjkbddmzalixma monohydrate and macrocrystal 100 mg cap(s) (MACROBID)omeprazole 40 mg delayed release oral capsule (5 sources)Proton Pump InhibitorStart: 09-12-2023 End: 58-53-1767xxuz 1 capsule by mouth before mealtimeomeprazole (PriLOSEC) [address] capsule Indications: Gastroesophageal reflux disease without esophagitis Take 1 capsule (40 mg) by mouth in the morning. Take before meals. Do not crush or chew.. 30 capsule 11 09/12/2023 09/11/2024 Activeondansetron 4 mg disintegrating oral tablet (20 sources)Serotonin-3 Receptor AntagonistStart: 07-01-2023 End: 70-69-3134vjwu 1 tablet by mouth every eight hours [...] release oral tablet (17 sources)Proton Pump InhibitorStart: 12-36-8395glpv 1 tablet by mouth once dailypantoprazole (ProtoNix) 40 MG EC tablet Take 40 mg by mouth Daily 04/10/2025 ActiveStart: 09-26-2023 End: 76-27-1489juho 1 tablet by mouth once dailypantoprazole DR (PROTONIX) 40 mg tablet Indications: Non-rheumatic mitral regurgitation , Persistent atrial fibrillation (HCC) , Non-ischemic cardiomyopathy (HCC) , Chronic HFrEF (heart failure with reduced ejection fraction) ([facility]) take 1 tablet by mouth every day 90 tablet 12/22/2023 ActiveComment on above:Take 1 tablet by mouth once daily. polyethylene glycol 3350 29994 mg powder for oral solution (20 sources)Osmotic LaxativeStart: 31-12-1141borsjoxijupx glycol 3350 17 gram/dose powder Take 17 g by mouth once daily as needed. Dissolve dosein 4 - 8 ounces of liquid and take as directed. 510 g 1 08/31/2023 ActiveStart: 72-24-3776uvzy 17 g by mouth once dailypolyethylene glycol 3350 17 gram packet 17 gm, Oral, Daily, # 255 gm, Refills(s) 0, Pharmacy: [facility] #[id number], 165, cm, 07/02/23 21:30:00 EST, Height/Length Dosing, 55.7, kg, 07/02/23 21:30:00 EST, Weight Dosing Start Date: 07/05/23 Status: OrderedComment on above:Take 17 g by mouth once daily as needed. Dissolve dose in 4 - 8 ounces of liquid and take as directed.prednisoLONE acetate 10 mg/ml ophthalmic suspension (20 sources)CorticosteroidStart: 09-77-1152teezzpjxHRVG acetate (Pred-Forte) 1 % ophthalmic suspension 07/31/2024 ActiveStart: 77-27-1737dtcv 1 drop(s) into the eye(s) three times dailyprednisoLONE acetate (Pred-Forte) 1 % ophthalmic suspension Instill 1 drop into left eye three times a day as directed 07/31/2024 ActivepredniSONE 20 mg oral tablet (3 sources)Start: 11-18-2024 End: 78-10-3687yfid 2 tablets by mouth once dailypredniSONE (Deltasone) 20 MG tablet Indications: Acute cough Take 2 tablets (40 mg) by mouth Daily for 5 days 10 tablet 11/18/2024 11/23/2024 Activespironolactone 25 mg oral tablet (20 sources)Aldosterone AntagonistStart: 08-31-2023 End: 22-78-4411wtfj 0.5 tablet by mouth once dailyspironolactone (ALDACTONE) 25 mg tablet Take a half tablet by mouth once daily. 30 tablet 1 08/31/2023 Active spironolactone (Aldactone) 25 MG tablet Take 12.5 mg by mouth in the morning and 12.5 mg before bedtime. ActiveComment on above:Take a half tablet by mouth once daily.Tobramycin (1 source)Aminoglycoside AntibacterialStart: 12-24-2021 End: 29-95-1523mdta 1 drop(s) into the eye(s) four times dailytobramycin ophthalmic 0.3% solution 1 drop(s), Eye-Both, QID for 7 day(s), 5 mL, Refill(s) 0, [facility] #[id number], 165, cm, 12/24/21 17:41:00 EDT, Height/Length Dosing, 54, kg, 12/24/21 17:41:00 EDT, Weight Dosing Start Date: 12/24/21 Stop Date: 12/31/21 Status: OrderedZofran ODT 4 mg Tab-Dis (12 sources)Start: 93-17-8969ohvb 1 tablet by mouth every eight hoursZofran ODT 4 mg Tab-Dis 4 mg = 1 tab(s), Oral, q8hr, # 12 tab(s), Refills(s) 0, [id number], 165, cm, 06/30/23 19:37:00 EST, Height/Length Dosing, 55.7, kg, 06/30/23 19:37:00 EST, Weight Dosing Start Date: 07/01/23 Status: Ordered Completed/Discontinued Medications MedicationDrug Class(es)DatesSig (Normalized)Sig (Original)aspirin 81 mg delayed release oral tablet (14 sources)Platelet Aggregation Inhibitor, Nonsteroidal Anti-inflammatory Drug Start: 07-05-2023 End: 78-17-3260btlp 1 tablet by mouth onceaspirin 81 MG EC tablet Take 81 mg by mouth 1 (one) time. 07/05/2023 09/06/2023 DiscontinuedComment on above:Take 81 mg by mouth once daily.azithromycin 250 mg oral tablet (12 sources)Macrolide AntimicrobialStart: 11-18-2024 End: 28-90-9047hgbicmiyagli (Zithromax) 250 MG tablet Indications: Acute cough Take 2 tabs PO x 1 day then 1 tab PO daily x 4 days 6 tablet 11/25/2024 12/17/2024 Discontinueddigoxin 0.125 mg oral tablet (20 sources)Cardiac GlycosideStart: 09-06-2023 End: 74-55-3793pmsq 0.5 tablet by mouth in the morning, then take 0.5 tablet by mouth once dailydigoxin (Lanoxin) 125 MCG tablet Indications: Systolic congestive heart failure, unspecified HF chronicity (CMS/HCC) Take 0.5 tablets (62.5 mcg) by mouth in the morning. Take 1/2 a tab daily. 45 tablet 09/06/2023 07/01/2024 Discontinued (Therapy completed)Start: 52-57-2404ihuretg (LANOXIN) 125 mcg (0.125 mg) tablet Take HALF tablet by mouth daily (not one complete tablet) 30 tablet 1 08/31/2023 ActiveStart: 07-05-2023 End: 68-10-8182ndywjuo (Lanoxin) 125 MCG tablet Take 125 mcg by mouth. 07/05/2023 09/01/2023 Discontinued (Alternate therapy)Start: 85-11-9878ibgk 1 tablet by mouth once dailydigoxin 125 mcg (0.125 mg) Tab 125 mcg = 1 tab(s), Oral, Daily, # 60 tab(s), Refills(s) 0, Pharmacy: [id number], 165, cm, 07/02/23 21:30:00 EST, Height/Length Dosing, 55.7, kg, 07/02/23 21:30:00 EST, Weight Dosing Start Date: 07/05/23 Status: OrderedComment on above:Take HALF tablet by mouth daily (not one complete tablet)Take 125 mcg by mouth once daily.furosemide 40 mg oral tablet (14 sources)Loop DiureticStart: 07-05-2023 End: 81-75-0833yzhp 1 tablet by mouth in the morningfurosemide (Lasix) 40 MG tablet Take 40 mg by mouth in the morning. 07/05/2023 09/12/2023 Discontinued Comment on above:Take 40 mg by mouth once daily.loperamide hydrochloride 2 mg oral capsule (2 sources)Opioid AgonistStart: 10-24-2017 End: 47-39-1102wtxn 2 capsules by mouth onceloperamide (IMODIUM) 2 [...] (14 sources)Angiotensin 2 Receptor BlockerStart: 07-05-2023 End: 49-56-3842rmnl 1 tablet by mouth in the morninglosartan (Cozaar) 25 MG tablet Take 25 mg by mouth in the morning. 07/05/2023 09/01/2023 Discontinued (Discontinued by another clinician)Comment on above:Take 25 mg by mouth once daily.metoprolol 1 mg/mL Inj (1 source)Start: 07-07-2023 End: 95-19-4481nxqnmq 5 mg intravenously oncemetoprolol 1 mg/mL Inj 5 mg = 5 mL, Injection, IV Push, Once, Stop date 07/07/23 10:02:18 AM EST, STAT, Start date 07/07/23 9:41:00 AM EST, 07/07/23 9:41:00 EST Start Date: 07/07/23 Stop Date: 07/07/23 Status: Completedpenicillin v potassium 250 mg oral tablet (2 sources) End: 96-20-7086xpzglmnvdu V (Veetid) 250 MG tablet Take by mouth 08/11/2023 Discontinuedsodium phosphate, dibasic 35.5 mg/ml / sodium phosphate, monobasic 96.4 mg/ml enema (2 sources)Start: 04-17-2025 End: 99-37-4436jfiesh phosphate (Fleet) 7-19 GM/118ML enema Indications: Constipation, unspecified constipation type Insert 1 enema into the rectum 1 (one) time for 1 dose 135 mL 04/17/2025 04/21/2025 Expiredtamsulosin hydrochloride 0.4 mg oral capsule (2 sources)alpha-Adrenergic BlockerStart: 10-18-2012 End: 15-68-0164fush 1 capsule by mouth once daily at bedtimetamsulosin 0.4 mg Cp24 Take 1 capsule by mouth daily at bedtime. 30 capsule 3 10/18/2012 08/28/2023iscontinued (Course of therapy completed)Comment on above:Take 1 capsule by mouth daily at bedtime.valsartan 80 mg oral tablet (6 sources)Angiotensin 2 Receptor BlockerStart: 08-31-2023 End: 19-63-0930ogut 1 tablet by mouth once dailyvalsartan (DIOVAN) 80 mg tablet Take 1 tablet by mouth once daily. 90 tablet 1 08/31/2023 09/26/2023 Discontinued (Course of therapy completed)Comment on above:Take 1 tablet by mouth once daily. Problems Active Problems Problem ClassificationProblemDateDocumented DateEpisodic/ChronicAdjustment disorders (14 sources)Adjustment disorder with mixed anxiety and depressed mood; Translations: [Adjustment disorder with mixed anxiety and depressed mood]Onset: 105069-78-3138ExfprzgMdewlli disorders (20 sources)Anxiety; Translations: [Anxiety disorder]Onset: 01-30-2023 Resolved: 477557-92-3800PnwxztxAfjupmp dysrhythmias (20 sources)Unspecified atrial fibrillation; Translations: [Persistent atrial fibrillation]Onset: 89-72-0425ZhjhxkhMzprhrkitwc and hemorrhagic disorders (2 sources)Thrombophilia; Translations: [Other thrombophilia]11-98-3070Xjinbil Conduction disorders (8 sources)Encounter for adjustment and management of automatic implantable cardiac defibrillator; Translations: [Presence of automatic (implantable) cardiac defibrillator]Onset: 41-70-4797OethfpiGieclrnxtf heart failure; nonhypertensive (12 sources)Acute systolic heart failure; Translations: [Acute systolic (congestive) heart failure]Onset: 07-04-2023 Resolved: 29-26-9667ShklmvfIizmliqw atherosclerosis and other heart disease (3 sources)Coronary atherosclerosis; Translations: [Atherosclerotic heart disease of [place] coronary artery without angina pectoris]Onset: 07-05-2023 ChronicE Codes: Adverse effects of medical drugs (1 source)Adverse reaction to biological substance; Translations: [Adverse effect of unspecified drugs, medicaments and biological substances, initial encounter]Onset: 94-53-4965PyjjilxwBqrlgnuppg disorders (20 sources)Gastroesophageal reflux disease; Translations: [Gastroesophageal reflux disease without esophagitis]Onset: 022533-04-2658CbraykfNjmghnjwt hypertension (20 sources)Essential hypertension; Translations: [Essential (primary) hypertension]Onset: 845924-18-6725TewctccDmdjf valve disorders (20 sources)Non-rheumatic mitral regurgitation ; Translations: [Nonrheumatic mitral (valve) insufficiency]Onset: 17-90-4382SwnmhxnFqcdpxqrmyin with complications and secondary hypertension (4 sources)Hypertensive heart failure; Translations: [Hypertensive heart disease with heart failure]66-91-8309QymikggGsmxvwcyqxgj; infection of eye (except that caused by tuberculosis or sexually transmitteddisease) (1 source)Toxic conjunctivitis; Translations: [Acute toxic conjunctivitis, bilateral]Onset: 95-79-2309YkxjevyaSbzxecsqoq infection (2 sources)Clostridium difficile diarrhea; Translations: [Enterocolitis due to Clostridium difficile, not specified as recurrent]23-98-5866YukeuafpTvkuxvf and fatigue (20 sources)Chronic fatigue syndrome; Translations: [Chronic fatigue syndrome] Onset: 426716-29-1578LodilevAwptysucwq disorders (20 sources)Atrophic vaginitis; Translations: [Postmenopausal atrophic vaginitis]Onset: 53-21-5977QdcdutuVqmswaifbgy deficiencies (20 sources)Deficiency of macronutrients; Translations: [Unspecified severe protein-calorie malnutrition]Onset: 680899-34-5948ArcxvzhZnqtz aftercare (1 source)Long-term current use of drug therapy; Translations: [Other intermediate (current) drug therapy]Onset: 43-27-1446HybfupgxQedkt aftercare (2 sources)Post-discharge follow-up; Translations: [Encounter for follow-up examination after completed treatment for conditions other than malignant neoplasm]32-24-3209VtmwxzvdTqsqm circulatory disease (1 source)Disorder of arteries and arterioles, unspecified; Translations: [Disorder of artery or arteriole (HCC)]Onset: 05-57-9623GiuiqxnNaldb circulatory disease (2 sources)Presence of other cardiac implants and grafts; Translations: [Presence of other cardiac implants and grafts]Onset: 16-68-3939MaqgettVesve diseases of kidney and ureters (1 source)Disorder of kidney and/or ureter; Translations: [Disorder of kidney and ureter, unspecified]Onset: 48-42-0892NogkqageUojqr ear and sense organ disorders (2 sources)Ear sensations - finding; Translations: [Other specified disorders of right ear]81-79-2689OifgzndgIvent gastrointestinal disorders (3 sources)Constipation, unspecified; Translations: [Constipation, unspecified] Onset: 11-59-3053OfapocskGnhgp injuries and conditions due to external causes (2 sources)Contusion; Translations: [Other injury of unspecified body region, initial encounter]83-62-4333AcfjwxrvQqslz lower respiratory disease (4 sources)Cough; Translations: [Acute cough]42-44-7265OvzsgohhHyksh lower respiratory disease (4 sources)Dyspnea on exertion; Translations: [Other forms of dyspnea]04-07-2025 EpisodicOther nervous system disorders (1 source)Tremor; Translations: [Tremor, unspecified]Onset: 96-82-9451Gyscrkwl Other non-traumatic joint disorders (1 source)Pain of right shoulder joint; Translations: [Pain in right shoulder] Onset: 89-97-0455GebfjwnpVmvgq screening for suspected conditions (not mental disorders or infectious disease) (4 sources)Blood chemistry abnormal; Translations: [Other specified abnormal findings of blood chemistry]Onset: 59-88-2687AmgndfkyVkamg upper respiratory disease (20 sources)Seasonal allergy; Translations: [Other seasonal allergic rhinitis] Onset: 951087-45-1160YqseawxHpuycf media and related conditions (2 sources)Finding of fluid behind tympanic membrane; Translations: [Unspecified nonsuppurative otitis media, right ear]89-00-2390PgjntpqgJjlp-; endo-; and myocarditis; cardiomyopathy (except that caused by tuberculosis or sexually transmitted disease) (20 sources)Cardiomyopathy; Translations: [Other cardiomyopathies]Onset: 021058-76-8197DrakapaNsokqgghxj and visceral atherosclerosis (20 sources)Atherosclerosis of aorta; Translations: [Atherosclerosis of aorta] Onset: 02-21-2018 Resolved: 910080-36-2139NhkovzbXaofgtny; pneumothorax; pulmonary collapse (1 source)Pleural effusion; Translations: [Pleural effusion, not elsewhere classified]Onset: 15-37-5735UfdieyjvVsyvtlyyj by nonmedicinal substances (2 sources)Bee sting; Translations: [Toxic effect of venom of bees, accidental (unintentional), initial encounter]05-79-1538AjwldhbiSvlsyevg of female genital organs (20 sources)Cystocele; Translations: [Uterovaginal prolapse, unspecified]Onset: 587528-03-7753UxbelvfYkjsyyfb codes; unclassified (1 source)History of cardioversion; Translations: [Personal history of other medical treatment]51-71-7763NehrlnfbEjitctgh codes; unclassified (3 sources)Other specified postprocedural states; Translations: [H/O major abdominal surgery]Onset: 88-44-5724LucoausnGlbvfopm codes; unclassified (2 sources)Body mass index 20-24 - normal; Translations: [Body mass index (BMI) 22.0-22.9, adult]20-20-9751RkzgcgtjMhhncoyrabr; intervertebral disc disorders; other back problems (1 source)Low back pain; Translations: [Low back pain, unspecified]Onset: 34-40-6513FqpoyijtUjbbplyumbd injury; contusion (2 sources)Contusion of forearm; Translations: [Contusion of right forearm, initial encounter]Onset: 18-94-1988LyvjlvvoNpxucdzdyhyc (20 sources)Finding of sensation of ugfxssu18-06-0780Kzwnycmpozgq (2 sources)Longstanding persistent atrial fibrillation; Translations: [Longstanding persistent atrial fibrillation]Onset: 24-63-7395Gogfqbss veins of lower extremity (2 sources)Pain due to varicose veins of lower extremity; Translations: [Varicose veins of unspecified lower extremity with pain]Onset: 06-13-2022 EpisodicViral infection (1 source)Viral disease; Translations: [Viral infection, unspecified]Episodic Past or Other Problems Problem ClassificationProblemDateDocumented DateEpisodic/ChronicAbdominal pain (20 sources)Suprapubic pain; Translations: [Abdominal pain]Onset: 04-12-2023 Resolved: 525186-31-8571IahrtwfwYpmcigtgobwvl symptoms and ill-defined conditions (20 sources)Delay when starting to pass urine; Translations: [Dysuria]Onset: 09-26-2012 Resolved: 263064-51-3776CiqvnnihStmqzvsjez obstruction without hernia (20 sources)Intestinal obstruction; Translations: [Unspecified intestinal obstruction, unspecified as to partial versus complete obstruction]Onset: 554952-94-3860XzutilofNwwdshcjbramx mental health disorders (20 sources)Transient insomnia; Translations: [Adjustment insomnia]Onset: 361177-40-4441HnvydxfyJeoajmsnzixzs gastroenteritis (20 sources)Acute gastroenteritis; Translations: [Noninfective gastroenteritis and colitis, unspecified]Onset: 04-12-2023 Resolved: 667047-95-1658GtlznjpjEuee wounds of head; neck; and trunk (20 sources)Superficial laceration of face; Translations: [Laceration without foreign body of other part of head, initial encounter]Onset: 04-12-2023 Resolved: 667987-54-9487TknlwscyXlspb aftercare (20 sources)Long-term current use of anticoagulant; Translations: [skilled nursing (current) use of 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s]Onset: 040511-87-9359WjqhuwywYpixl circulatory disease (1 source)Other specified symptoms and signs involving the circulatory and respiratory systems; Translations:[Other specified symptoms and signs involving the circulatory and respiratory systems]Onset: 21-49-6951AayhbbmvJuybl diseases of bladder and urethra (20 sources)Urethral stricture; Translations: [Other urethral stricture, female] Onset: 201443-75-3839GjkdxvclUsniv diseases of bladder and urethra (1 source)Unspecified urethral stricture, female; Translations: [Stricture of female urethra, unspecified stricture type]Onset: 81-96-5371KltlstfhWgvwf diseases of kidney and ureters (20 sources)Kidney lesion; Translations: [Disorder of kidney and ureter, unspecified]Onset: 232452-61-1448QpwuorpgWzytb female genital disorders (20 sources)Disorder of vagina; Translations: [Stricture and atresia of vagina] Onset: 308657-76-8729MyqcyfgiUujya injuries and conditions due to external causes (20 sources)Injury of nose; Translations: [Unspecified injury of nose, initial encounter]Onset: 04-12-2023 Resolved: 529851-39-6782VffdsljmNqxnjfajx and history of mental health and substance abuse codes (20 sources)Ex-smoker; Translations: [Personal history of nicotine dependence] Onset: 311506-68-7737FusrdjffIkwwcwktjkun (1 source)Exposure to 2019 novel coronavirus; Translations: [Contact with and (suspected) exposure to COVID19] Results Test NameValueInterpretationReference DjktkSfgahpxf67ct 17-00-099070Djr dr vega, pt can resume all activities as normal starting now. Pt informed She will hold the vaginal dilator for 10 days per pt everything else she will resume.[facility]36on 86-61-983799Ffp 1 week follow-up scheduled? yes Has 30 [...] well for weeks prior to the procedure. [facility] [employer] instructed pt to avoid strenuous activity or heavy lifting for at least a week. [employer] reached out to quality lab assoc RN regarding the device card and per [...] No additional questions or concerns at this time.[facility] HospitalTelephoneon [id number] Harjit Asencio I 1950 F Date Provider Department Center 05/29/2025 [id number] BYRD [facility] [place] [facility] Family History Problem Relation Age of Onset Coronary artery disease Mother Diabetes Mother Coronary artery disease Father Family Status - Relation Status Age at Mother Father Sister Brother Alive Reason for Visit and Comments: T-ANA follow-up call [Other][facility]30on 54-92-041998Tkz patient is Moderately Stable - Low risk [...] by Ziggy Brown RN Outcome: ProgressingNormalUniversity of [facility] [place]30The patient is Moderately Stable - Low risk [...] other facility with appropriate resources Outcome: ProgressingNormalUniversity Riverside Methodist HospitalBASIC METABOLIC PANELon 14-58-9654[place]apai gap [Moles/Vol]11 mmol/LNormal7-20UnChildren's Hospital of ColumbusComment on above:Performed By: #### [id number] #### [facility] [address] [place] [address] USACalcium [Mass/Vol]8.5 mg/dLLow8.6-10.3UnChildren's Hospital of ColumbusComment on above:Performed By: #### [id number] #### [facility] [address] [place] [address] USAChloride [Moles/Vol]102 mmol/WJottip17-178HmhfmwqedhChildren's Hospital of ColumbusComment on above:Performed By: #### [id number] #### [facility] [address] [place] [address] USACO2 [Moles/Vol]27 mmol/FFfvmxh71-01RgapedcwgxChildren's Hospital of ColumbusComment on above:Performed By: #### [id number] #### [facility] [address] [place] [address] USACreatinine [Mass/Vol]0.93 mg/dLNormal0.60-1.20UnChildren's Hospital of ColumbusComment on above:Performed By: #### [id number] #### [facility] [address] [place] [address] USAGLOMERULAR FILTRATION RATE ML/MIN/1.73 SQ M.YYRRPZVXR08.3 mL/min/1.73m*2Normal>60.0UnChildren's Hospital of ColumbusComment on above: Result Comment: [facility]???s estimated glomerular filtration rate (eGFR) will [...] affect anyone group of individuals.Performed By: #### [id number] #### [facility] [address] [place] [address] USAGlucose [Mass/Vol]211 mg/uDDuhw92-696ApbrtwjkrbChildren's Hospital of ColumbusComment on above:Performed By: #### [id number] #### [facility] [address] [place] [address] USAPotassium [Moles/Vol]4.6 mmol/LNormal3.5-5.1UnChildren's Hospital of ColumbusComment on above:Performed By: #### [id number] #### [facility] [address] [place] [address] USASodium [Moles/Vol]135 mmol/CMds393-889SubzjojoxeChildren's Hospital of ColumbusComment on above:Performed By: #### [id number] #### [facility] [address] [place] [address] USAUrea nitrogen [Mass/Vol]14 mg/dLNormal7-25UnChildren's Hospital of ColumbusComment on above:Performed By: #### [id number] #### [facility] [address] [place] [address] USAUREA NITROGEN/CREATININE (MASS RATIO) IN SER/PLAS15.1Normal [facility] HospitalComment on above:Performed By: #### [id number] #### [facility] [address] [place] [address] USACBC WITH AUTO DIFFERENTIALon 55-63-9985Qdrosxitg (Bld) [#/Vol]0.01 10*3/uLNormal0.00-0.20UnChildren's Hospital of ColumbusComment on above:Performed By: #### [id number] #### [facility] [address] [place] [address] USABasophils/100 WBC (Bld)0.1 %Normal0.0-1.0UnChildren's Hospital of ColumbusComment on above:Performed By: #### [id number] #### [facility] [address] [place] [address] USAEosinophils (Bld) [#/Vol]0.00 10*3/uLNormal0.00-0.50 [facility] HospitalComment on above:Performed By: #### [id number] #### [facility] [address] [place] [address] USAEosinophils/100 WBC (Bld)0.0 %Normal0.0-6.0UnChildren's Hospital of ColumbusComment on above:Performed By: #### [id number] #### [facility] [address] [place] [address] USAErythrocyte distribution width (RBC) [Ratio]14.2 %Normal 11.5-15.0UnChildren's Hospital of ColumbusComment on above:Performed By: #### [id number] #### [facility] [address] [place] [address] USAERYTHROCYTE MEAN CORPUSCULAR HEMOGLOBIN CONCENTRATION (G/DL) BY ZZMZYYLHZ78.2 g/iDKhurhl00.0-35.0UnChildren's Hospital of ColumbusComment on above:Performed By: #### [id number] #### [facility] [address] [place] [id number] USAHematocrit (Bld) [Volume fraction]38.2 %Cribvl59.0-45.0 [facility] HospitalComment on above:Performed By: #### [id number] #### [facility] [address] [place] [address] USAHemoglobin (Bld) [Mass/Vol]12.3 g/bYZfffas97.0-15.0 [facility] HospitalComment on above:Performed By: #### [id number] #### [facility] [address] [place] [address] USAImmature granulocytes (Bld) [#/Vol]0.06 10*3/uLNormal 0.00-0.20UnChildren's Hospital of ColumbusComment on above:Performed By: #### [id number] #### [facility] [address] [place] [address] USAImmature granulocytes/100 WBC (Bld)0.5 %Normal0.0-1.0 [facility] HospitalComment on above:Performed By: #### [id number] #### [facility] [address] [place] [address] USALymphocytes (Bld) [#/Vol]0.42 10*3/uLLow1.20-4.00UnChildren's Hospital of ColumbusComment on above:Performed By: #### [id number] #### [facility] [address] [place] [address] USALymphocytes/100 WBC (Bld)3.3 %Low20.0-45.0UnChildren's Hospital of ColumbusComment on above:Performed By: #### [id number] #### [facility] [address] [place] [address] USAMCH (RBC) [Entitic mass]29.9 ngFfvyrn24.0-33.0UnChildren's Hospital of ColumbusComment on above:Performed By: #### [id number] #### [facility] [address] [place] [address] USAMCV (RBC) [Entitic vol]92.9 uSVfzpxf79.0-98.0UnChildren's Hospital of ColumbusComment on above:Performed By: #### [id number] #### [facility] [address] [place] [address] USAMonocytes (Bld) [#/Vol]0.65 10*3/uLNormal0.10-1.00UnChildren's Hospital of ColumbusComment on above:Performed By: #### [id number] #### [facility] [address] [place] [address] USAMonocytes/100 WBC (Bld)5.1 %Normal5.0-12.0UnChildren's Hospital of ColumbusComment on above:Performed By: #### [id number] #### [facility] [address] [place] [address] USANeutrophils (Bld) [#/Vol]11.71 10*3/uLHigh1.60-7.60 [facility] HospitalComment on above:Performed By: #### [id number] #### [facility] [address] [place] [address] USANeutrophils/100 WBC (Bld)91.0 %High40.0-72.0UnChildren's Hospital of ColumbusComment on above:Performed By: #### [id number] #### [facility] [address] [place] [address] USANRBC (PER 100 WBCS) BY AUTOMATED COUNT0.0 %Zzxvzh6DlsxhmmphgChildren's Hospital of ColumbusComment on above:Performed By: #### [id number] #### [facility] [address] [place] [address] USAPLATELETS (10*3/UL) IN BLOOD AUTOMATED [id number] 10*3/uL Jcvdke976-915LrejhqkfiqChildren's Hospital of ColumbusComment on above:Performed By: #### [id number] #### [facility] [address] [place] [address] USARBC (Bld) [#/Vol]4.11 10*6/uLNormal3.80-5.00UnChildren's Hospital of ColumbusComment on above:Performed By: #### [id number] #### [facility] [address] [place] [address] USAWBC (Bld) [#/Vol]12.85 10*3/uLHigh4.00-10.60UnChildren's Hospital of ColumbusComment on above:Performed By: #### [id number] #### [facility] [address] [place] [id number] USACONSULTon 90-97-6602JMPNAJUmywjxpwza planning: to Home Patient came to this admission from their private residence in the community, a planned admission for transcatheter hudr-yf-pyab repair with TriClip; verse writer confirmed no wound care needed from procedureNormalUniversity Riverside Methodist HospitalDSon 20-80-2409RC Attestation signed by Gabe Martinez MD at [...] Neck: Supple, No thyromegaly (more content not included)...NormalUnChildren's Hospital of Columbus30on 24-44-405454Cqk patient is Moderately Stable - Low risk of patient condition declining or worsening The patient's goals for the shift include comfort, rest The clinical goals for the shift include VSS, safety, cath site checksNoal [facility]30The patient is Moderately Stable - Low [...] and maintained or improved Outcome: ProgressingNormalUniversity of Christ[facility] Saint Michael Hospital – AtlantaABG COMPLETE UNSOLICITED RESULTSon 12-59-3121X-ZCV5SmcwkvFvgnossobu [facility] Comment on above:Result Comment: C^IncalculablePerformed By: #### [id number] #### [facility] [address] [place] [address] USABase excess Calc (Bld) [Moles/Vol]-0.5000 mmol/LNormal -2.0-3.0UnChildren's Hospital of ColumbusComment on above:Performed By: #### [id number] #### [facility] [address] [place] [address] USACALCIUM IONIZED, ARTERIAL1.18 mmol/LNormal1.13-1.32 [facility] HospitalComment on above:Performed By: #### [id number] #### [facility] [address] [place] [address] USACARBOXYHEMOGLOBIN, ARTERIAL1.0 %NormalUnChildren's Hospital of ColumbusComment on above:Performed By: #### [id number] #### [facility] [address] [place] [address] USAChloride [Moles/Vol]104 mmol/NUonzso19-338CdazupdxduChildren's Hospital of ColumbusComment on above:Performed By: #### [id number] #### [facility] [address] [place] [address] USACO2 (Bld) [Partial pressure]39 mm[Hg]Bpzkqm18-28XhskpixakfChildren's Hospital of ColumbusComment on above:Performed By: #### [id number] #### [facility] [address] [place] [address] USADEOXYGENATED HEMOGLOBIN, ARTERIAL0.3 %NormalUnChildren's Hospital of ColumbusComment on above:Performed By: #### [id number] #### [facility] [address] [place] [address] USAGlucose [Mass/Vol]112 mg/qEWzlt64-30YxeysmbwdbChildren's Hospital of ColumbusComment on above:Performed By: #### [id number] #### [facility] [address] [place] [address] USAHCO3 (Bld) [Moles/Vol]24.2 mmol/IEzviuk96.0-28.0UnChildren's Hospital of ColumbusComment on above:Performed By: #### [id number] #### [facility] [address] [facility] [address] USAHematocrit (Bld) [Volume fraction]35 %Rki81-01TvnwwmfspfChildren's Hospital of ColumbusComment on above:Performed By: #### [id number] #### [facility] [address] [place] [address] USAHemoglobin (Bld) [Mass/Vol]11.8 g/dLNormalUniversBerger HospitalComment on above:Performed By: #### [id number] #### [facility] [address] [place] [address] USALACTATE, ARTERIAL0.90 mmol/LNormal0.36-1.39UnChildren's Hospital of ColumbusComment on above:Performed By: #### [id number] #### [facility] [address] [place] [address] USAMETHEMOGLOBIN, ARTERIAL0.7 %Normal0.0-1.5UnChildren's Hospital of ColumbusComment on above:Performed By: #### [id number] #### [facility] [address] [place] [address] USAOxygen (Bld) [Partial pressure]152 mm[Hg]Kbqi26-914 [facility] HospitalComment on above:Performed By: #### [id number] #### [facility] [address] [place] [address] USAOXYGEN SATURATION (%) IN ARTERIAL BLOOD99.7 %Normal 94.0-100.0UnChildren's Hospital of ColumbusComment on above:Performed By: #### [id number] #### [facility] [address] [place] [address] USAOXYGENATED HEMOGLOBIN IN ARTERIAL BLOOD98.0 %High94.0-97.0 [facility] HospitalComment on above:Performed By: #### [id number] #### [facility] [address] [place] [address] USAPAO2/VRR6JfacvwDdmbbhupwhBerger HospitalComment on above:Result Comment: C^IncalculablePerformed By: #### [id number] #### [facility] [address] [place] [address] USAPF RATIONormalUnChildren's Hospital of ColumbusComment on above:Result Comment: C^IncalculablePerformed By: #### [id number] #### [facility] [address] [place] [address] USAPH OF ARTERIAL BLOOD7.83Gyonoa4.35-7.45UnChildren's Hospital of ColumbusComment on above:Performed By: #### [id number] #### [facility] [address] [place] [address] USAPotassium [Moles/Vol]3.7 mmol/LNormal3.4-5.2UnChildren's Hospital of ColumbusComment on above:Performed By: #### [id number] #### [facility] [address] [place] [address] USASodium [Moles/Vol]135 mmol/PMpf972-176XkjzqaczjjChildren's Hospital of ColumbusComment on above:Performed By: #### [id number] #### [facility] [address] [place] [address] PWNSKKPFGVJUTG36.0 ???CNormalUnChildren's Hospital of ColumbusComment on above:Performed By: #### [id number] #### [facility] [address] [place] [address] USAHPon 99-70-0073ZQB&P reviewed. The patient was examined and there [...] the patient today again including risk of SC, stroke, and possible need for conversion to open surgical approach. She understands and agrees to proceed. She signed informed consent.NormalOhioHealth Berger HospitalOrders Only on 93-92-3303Kwiodk [id number] Harjit Asencio I 1950 F Date Provider Department Center 05/27/2025 20768-PXIRIXONATHAN TOM [facility] [place] HeartVAS Family History Problem Relation Age of Onset Coronary artery disease Mother Diabetes Mother Coronary artery disease Father Family Status - Relation Status Age at Mother Father Sister Brother AliveNormalUniSheltering Arms HospitalPOCT GLUCOSE METER UNSOLICITED RESULTSon 57-98-4162Vvipves [Mass/Vol]90 mg/nHMxqifc94-971FajwklvfrfChildren's Hospital of ColumbusComment on above:Order Comment: Waived Testing in the ED is performed under the ED CLIA certificate #[id number].Result Comment: hyqeka5Smcdpbokm By: #### [id number] #### [facility] [address] [place] [address] USATYPE AND SCREENon 79-85-5071VN SCREENNegativeNormal [facility] HospitalComment on above:Performed By: #### [id number] #### [facility] ,ABO group Nom (Bld)ONormalUnChildren's Hospital of ColumbusComment on above: Performed By: #### [id number] #### [facility] ,RH TYPE IN BLOODPositiveNormalUniversBerger HospitalComment on above:Performed By: #### [id number] #### [facility] ,HPon 95-01-7480GXEY Cardiology [facility] Subjective Harjit Asencio is a [...] removed. Patient would like to go to [facility] for cardiac rehab. 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 The plan was to add Jardiance. There is note of her to being evaluated by CT surgery Dr. Sorto regarding candidacy for cardiac surgery and she was deemed high risk. [facility]. Initial workup for her mitral valve disease was started. Spironolactone was changed to half tablet twice a day instead of 1 tablet once a day. She was also recommended to start taking digoxin at night instead of the morning. At [facility] with [facility] on 10[facility]/2023 I increased her carvedilol to 6.25 mg twice daily. I asked for a cardiopulmonary excise test. After visit with va on 10/30/2023 I added Jardiance 10 mg daily to optimize GDMT for systolic heart failure. I also started her on amiodarone to attempt rhythm control. Following that she stopped both medications due to side effects. After visit with va on 12/01/2023 I referred her to Patty [...] mmHg. She then und (more content not included)...NormalUnChildren's Hospital of ColumbusOffice Visiton 66-71-7365Qfvuss-up [id number] Harjit Asencio I 1950 F Date Provider Department Center 05/19/2025 RAFAEL PEDERSEN CECILE Davies Family History Problem Relation Age of Onset Coronary artery disease Mother Diabetes Mother Coronary artery disease Father Family Status - Relation Status Age at Mother Father Sister Brother Alive Level of Service:07858 ID OFFICE/OUTPATIENT ESTABLISHED HIGH [facility] 40 [facility] HospitalOrders Onlyon [id number] [id number] Harjit Asencio I 1950 F Date Provider Department Center 05/14/2025 RADHA CHAVEZ [facility] CARD [place] HeartVAS Family History Problem Relation Age of Onset Coronary artery disease Mother Diabetes Mother Coronary artery disease Father Family Status - Relation Status Age at Mother Father Sister Brother AliveNormalUniversity Riverside Methodist HospitalUrinalysis macro (dipstick) panel (U)on 86-53-1476Kibviopqe, UANegativeNegative - 4(70) +++ mg/dL NOMS HealthcareBlood, UANegativeNegative - 50 Pedro/mcLNOMS HealthcareClarity, UA ClearNOMS HealthcareColor, UAYellowNOMS HealthcareGlucose, UANegativeNegative - 2000(110) ++++ mg/dLNOMS HealthcareKetones, UANegativeNegative - 160(16) ++++ mg/dLNOMS HealthcareLeukocytes, UANegativeNegative - 500+++ Ghislaine/mcLNOMS HealthcareNitrite, UANegativeNegative - PositiveNOMS HealthcarepH, UA75 - 9NOMS HealthcareProtein, UANegativeNegative - 2000(20) ++++ mg/dLNOMS HealthcareSpec Grav, UA1.011 - 1.03NOMS HealthcareUrobilinogen, UA0.20.2 - 12 mg/dLNOMS HealthcareNOMS HealthcareED Clinical Summaryon [id number] Clinical SummaryED Clinical Summary [place] [id number] ED Clinical Summary Person Information Name: HARJIT ASENCIO I Patricia/[facility] Age: 75 Years : 1950 Sex: Female Language: Danish PCP: Snehal MCMAHON, Hannah De [place] Marital [...] 04/28/2025 01:39:01 04/28/2025 01:39:01 04/28/2025 01:39:01 ADDRESS: [address] [place] [address] [address] [facility] [id number] PHYS DOC NOTES: MEDICAL INFORMATION: Prescriptions Given: [...] Address: When: Hannah Snehal [address] [place], [place] [id number] [facility] ([email or web address] In 3 days 05/01/2025 Comments: Continue next dose of vancomycin as scheduled. DIAGNOSIS: 1:Accidental medication overdoseNormalFisher Oceana Medical CenterED Note-Physicianon 05-42-2417ZP Note-PhysicianED Note-Physician Basic Information Time Seen: Layton [...] and Complexity of Problems Differential Diagnosis: [] [facility] Data External documents reviewed: [] My [...] days 05/01/[address] [place] [address]- Business (1) Additional Instructions: Continue next dose [...] 1-2 times per year, (more content not included)...[facility]Point Medical CenterComment on above:Result Comment: Electronically Signed By: Yvette Vasquez, Layton Cazares\.br\Date and Time Signed: 04/28/2503:57 EDTED Patient Summaryon [id number] Patient SummaryED Patient Summary [address] [address] Patient Discharge Instructions Person Information Name: HARJIT ASENCIO I Age: 75 Years Arrival Date: 04/28/2025 00:50:29 Discharge Diagnosis: 1:Accidental medication overdose Primary Care Physician: Hannah Brian MD Provider Information Primary Provider: Layton Crawford M.D. Advanced Nuclear Power Plant Engineer:None The exam and treatment you received in the Emergency Department were for an urgent problem and are not intended as complete care. It is important that you follow up with a doctor, nurse practitioner,or physician???s bilingual administrative assistant for ongoing care. If your symptoms [...] With: Address: When: Hannah Brian [place] [address] Business (1) In 3 days [...] opioids can be used to help relieve optxuklf-qe-orvdch pain and are often prescribed following a [...] you may be stru (more content not included)...NormalMansfield HospitalLab Miscellaneous-LCon 02-68-9256Cit MiscellaneousCOMMENT Invalid Interpretation [facility] CenterComment on above:Result Comment: Test Ordered: 151998 C difficile Toxins A+B, EIA C difficile Toxins A+B, EIA Positive [A ] Reference Range: Negative Performed at: [address] [id number] PhD Emily Barclayformed By: #### [id number] #### [facility] [address] [place] [address]J & P EXAM, ROUTINE, REFLEXon 14-07-5700Yquymn 1CommentInvalid Interpretation [facility] CenterComment on above:Result Comment: No ova, cysts, or parasites seen. One negative specimen does not rule out the possibility of a parasitic infection. Performed at: [address] [id number] PhD Emily Barclayformed By: #### [id number] #### [facility] [address] [place] [address] 165[address]Y & P Exam, Routineon 92-66-3309Sgs/Para Exam RtFinal report Invalid Interpretation [facility] CenterComment on above:Result Comment: These results were obtained using wet preparation(s) and trichrome stained smear. This test does not include testing for Cryptosporidium parvum, Cyclospora, or Microsporidia. Performed at: [facility] [place] [id number] [place], [place] [id number] PhD Emily FraserPerformed By: #### [id number] #### [facility] [address] [place] [address]V. diff by PCRon 33-03-3891Kjcduibabcm difficile by PCRPositive AbnormalNegativeMansfield HospitalComment on above:Result Comment: Results Called To Jennifer Alcaraz/Bruce By laquita And Read Back For Confirmation On 04/24/2025 12:20:03 EDT. This test result should be correlated with clinical presentations and medical history by a healthcare provider to determine its clinical significance. Performed By: #### [id number] #### [facility] [address] [place] [address]YYsix PCRon 21-32-7015Kznwr Specimen AcceptableAcceptableNormal Mansfield HospitalComment on above:Performed By: #### [id number] #### [facility] [address] [place] [address]14[address]Bjvin CancelledNo, PCR to followNoAultman Alliance Community HospitalComment on above:Performed By: #### [id number] #### [facility] [address] [place] [address]Rimhsmu Panel by PCRon 82-71-6135Okgtyaljddhwz groupNot detectedNoAultman Alliance Community HospitalComment on above:Result Comment: Testing was performed utilizing reverse boatwright (RT), polymerase chain reaction (PCR), and array [...] tested by Verigene nulcleic acidtest.Performed By: #### [id number] #### [facility] [address] [place], [place] [address]Altbsss Panel Intrl QCPassLakeHealth TriPoint Medical Center Comment on above:Result Comment: Testing was performed utilizing reverse boatwright (RT), polymerase chain reaction (PCR), and array [...] Shiga toxins 1 and 2.Performed By: #### [id number] #### [facility] [address] [place] [address]Wgarwnfxu GI/GIINot [facility] Comment on above:Performed By: #### [id number] #### [facility] [address] [place], [place] [address]Hbxqmsjem ANot [facility] HospitalComment on above:Performed By: #### [id number] #### [facility] [address] [place] [address]Fzezmjsxvy speciesNot [facility] Comment on above:Result Comment: This test result should be correlated with clinical presentations and medical history by a healthcare provider to determine its clinical significance.Performed By: #### [id number] #### [facility] [address] [place], [place] [address]Gelna Tox InterpNegativeLakeHealth TriPoint Medical Center Comment on above:Performed By: #### [id number] #### [facility] [address] [place], [place] [address]Xlpmv Toxin 1Not detectedLakeHealth TriPoint Medical Center Comment on above:Performed By: #### [id number] #### [facility] [address] [place], [place] [address]Nxoen Toxin 2Not detectedLakeHealth TriPoint Medical Center Comment on above:Performed By: #### [id number] #### [facility] [address] [place], [place] [address]Ixldtinv speciesNot detectedLakeHealth TriPoint Medical Center Comment on above:Performed By: #### [id number] #### [facility] [address] [place], [place] [address]Qalqkq GroupNot [facility] Comment on above:Performed By: #### [id number] #### [facility] [address] [place], [place] [address]Vuizdykl enterocoliticaNot [facility] HospitalComment on above:Performed By: #### [id number] #### [facility] [address] [place], [place] [address]Bnc Miscellaneous-LCon 46-59-2097VonxdsqewsuPrawcpc Interpretation [facility] CenterComment on above:Performed By: #### [id number] #### [facility] [address] [place], [place] [address]Oxoc [id number] Interpretation [facility] CenterComment on above:Performed By: #### [id number] #### [facility] [address] [place], [place] [address]Xfib NameCdiff Toxin EIAInvalid Interpretation [facility] CenterComment on above:Performed By: #### [id number] #### [facility] [address] [place], [place] [address]KDUrl 64-89-8093EL2 [Moles/Vol]26 mmol/JIlaafx43-64XxjrzcMansfield HospitalComment on above:Performed By: #### [id number] #### [facility] [address] [place], [place] [address]Rfgey gap [Moles/Vol]11 mmol/LNormal6-16Mansfield HospitalComment on above:Performed By: #### [id number] #### [facility] [address] [place], [place] [address]HRA/Creat Ratio14 No LqfxvBwnznt98-25WpbjdvMansfield HospitalComment on above:Performed By: #### [id number] #### [facility] [address] [place], [place] [address]Lnwtocg [Mass/Vol]9.6 mg/dLNormal8.9-11.1FPremier Health Atrium Medical CenterComment on above:Performed By: #### [id number] #### [facility] [address] [place], [place] [address]Srcmacca [Moles/Vol]103 mmol/LTiztkx680-449MbfxmiMansfield HospitalComment on above:Performed By: #### [id number] #### [facility] [address] [place], [place] [address]Vgzajvsvam [Mass/Vol]1.0 mg/dLNormal0.5-1.3FPremier Health Atrium Medical CenterComment on above:Performed By: #### [id number] #### [facility] [address] [place], [place] [address]Feflqpb [Mass/Vol]136 mg/aQNllyeg40-202YzucbuMansfield HospitalComment on above:Performed By: #### [id number] #### [facility] [address] [place], [place] [address]Clxzdcgno [Moles/Vol]3.9 mmol/LNormal3.5-5.3FPremier Health Atrium Medical CenterComment on above:Performed By: #### [id number] #### [facility] [address] [place], [place] [address]Picker [Moles/Vol]136 mmol/HIyvley414-951MtrgliMansfield HospitalComment on above:Performed By: #### [id number] #### [facility] [address] [place], [place] [address]Xgyk nitrogen [Mass/Vol]14 mg/dLNormal5-21M[facility]field HospitalComment on above:Performed By: #### [id number] #### [facility] [address] [place], [place] [address]ZHP w/ Auto Diffon 30-48-2432Nweyrkat Absolute0.0 E9/LNormal 0.0-0.2FPremier Health Atrium Medical CenterComment on above:Performed By: #### [id number] #### [facility] [address] [place], [place] [address]Ylklwnjhb/100 WBC (Bld)0.7 %Normal0.0-2.0M[facility]field HospitalComment on above:Performed By: #### [id number] #### [facility] [address] [place], [place] [address]Vqc Absolute0.0 E9/LNormal0.0-0.5FPremier Health Atrium Medical Center Comment on above:Performed By: #### [id number] #### [facility] [address] [place], [place] [address]Qozwapdzhjx/100 WBC (Bld)0.4 %Normal0.0-8.0M[facility]field HospitalComment on above:Performed By: #### [id number] #### [facility] [address] [place], [place] [address]Dyoaboemgnq distribution width (RBC) [Ratio]14.4 %High10.9-14.2 [facility] HospitalComment on above:Performed By: #### [id number] #### [facility] [address] [place], [place] [address]Biimhyzbmy (Bld) [Volume fraction]44.9 %Lplono44.0-46.0M[facility]field HospitalComment on above:Performed By: #### [id number] #### [facility] [address] [place] [address]Zdtbvhkzky (Bld) [Mass/Vol]14.8 g/gQFkbasy35.0-16.0M[facility]field HospitalComment on above:Performed By: #### [id number] #### [facility] [address] [place] [address]Yffcz Absolute0.7 E9/LLow1.0-4.0[facility] Comment on above:Performed By: #### [id number] #### [facility] [address] [place] [address] 127[address]Ptpovwvznag/100 WBC (Bld)10.8 %Low14.0-50.0M[facility]field HospitalComment on above:Performed By: #### [id number] #### [facility] [address] [place] [address]APO (RBC) [Entitic mass]29.8 pwUkgcwi10.0-34.0M[facility]field HospitalComment on above:Performed By: #### [id number] #### [facility] [address] [place] [address]FAXY (RBC) [Mass/Vol]33.0 g/lIPjcars34.4-36.0M[facility]field HospitalComment on above:Performed By: #### [id number] #### [facility] [address] [place] [address]67[address]KXG (RBC) [Entitic vol]90.2 sOSkqasv42.0-100.0M[facility]field HospitalComment on above:Performed By: #### [id number] #### [facility] [address] [place] [address]Fkfm Absolute0.4 E9/LNormal0.2-1.0[facility] Comment on above:Performed By: #### [id number] #### [facility] [address] [place], [place] [address]Yqskbeack/100 WBC (Bld)5.2 %Normal4.0-14.0M[facility]field HospitalComment on above:Performed By: #### [id number] #### [facility] [address] [place], [place] [address]Cprqdt Absolute5.5 E9/LNormal2.0-7.5FPremier Health Atrium Medical Center Comment on above:Performed By: #### [id number] #### [facility] [address] [place], [place] [address]Zatovu Auto82.9 %High36.0-75.0[facility] Comment on above:Performed By: #### [id number] #### [facility] [address] [place] [address]Isoslsgw039.0 E9/YKbefms488.0-500.0[facility] Comment on above:Performed By: #### [id number] #### [facility] [address] [place] [address]Kpgrqhuu mean volume (Bld) [Entitic vol]8.2 fLNormal6.4-10.8 [facility] HospitalComment on above:Performed By: #### [id number] #### [facility] [address] [place] [address] 720[address]RKT4.0 E12/LNormal4.3-5.9M[facility]field HospitalComment on above:Performed By: #### [id number] #### [facility] [address] [place] [address] 878[address]FND5.7 E9/LNormal4.0-11.0M[facility]field HospitalComment on above:Performed By: #### [id number] #### [facility] [address] [place] [address]59[address]AM Abdomen/Pelvis w/o Contraston 67-47-0738TG Abdomen/Pelvis w/o ContrastExam Date/Time: 04/19/2025 13:53 EDT [...] Joseph DO Transcribed by: ARAVIND Technologist: Jude [facility] Clinical Summaryon [id number] Clinical SummaryED Clinical Summary [place] [id number] ED Clinical Summary Person Information Name: HARJIT ASENCIO I Patricia/[place] Age: 75 Years : 1950 Sex: Female Language: Danish PCP: Snehal MCMAHON, Hannah [place] Marital [...] 04/19/2025 15:11:52 04/19/2025 15:11:52 04/19/2025 15:11:52 ADDRESS: [address] [place] [id number] PHYS DOC NOTES: MEDICAL INFORMATION: Prescriptions Given: New Medications [facility], [address], [place] [id number], [phone] bacillus coagulans-inulin (Probiotic Formula (Bacillus Coagulans) oral capsule) 1 Capsules By Mouthevery day for 30 Days. Refills: 0. Medications to Continue Taking That Have Changed [facility] [address], [address], [place] [id number], [phone] START: ondansetron (Zofran ODT 4 mg Tab-Dis) [...] up: With: Address: When: Ana Turner [address] [facility], [address] [place] [phone] [employer] () In 3 days 04/22/2025 Comments: Follow-up with GI for further evaluation With: Address: When: Hannah Brian [address] [place] [id number] [facility] () In 3 days 04/22/2025 Comments: [...] worsening symptoms. DIAGNOSIS: Abdominal pain, acute; DiarrheaNormalFisher Oceana Medical CenterED Note-Physicianon 61-18-8192VG Note-PhysicianED Note-Physician Basic Information Time Seen: Jayson [...] for this. Patient has been seen at [facility] twice for this. She had labs [...] In 3 days 04/22/2025 EDT [address] [facility], [address] [place] [phone] Business (1) Additional Instructions: Follow-up with GI for further evaluation Hannah Brian In 3 days 04/22/[address] [place] [address]- Business (1) Additional Instructions: Call the office of your primary care doctor to arrange for follow-up within the above-stated timeframe. Follow-up with your primary care doctor about this ED visit. You should review your labs, imaging, and diagnoses from this ED visit with your primary care physician. There are occasionally non-emergent fi (more content not included)...[facility] CenterComment on above:Result Comment: Electronically Signed By: Jayson Calloway DO\.br\Date and Time Signed: 04/19/25 16:47 EDTED Patient Summaryon [id number] Patient SummaryED Patient Summary [place] [id number] Patient Discharge Instructions Person Information Name: HARJIT ASENCIO I Age: 75 Years Arrival Date: 04/19/2025 09:40:51 Discharge Diagnosis: Abdominal pain, acute; Diarrhea Primary Care Physician: Hannah Brian MD Provider Information Primary Provider: Jayson Calloway DO Advanced Nuclear Power Plant Engineer:None The exam and treatment you received in the Emergency Department were for an urgent problem and are not intended as complete care. It is important that you follow up with a doctor, nurse practitioner,or physician???s bilingual administrative assistant for ongoing care. If your symptoms [...] Follow-up Instructions: With: Address: When: Ana Turner [address] [place] [address], [address] [place] [id number] [facility] () In 3 days 04/22/2025 Comments: Follow-up with GI for further evaluation With: Address: When: Hannah Brian [address] [place] [id number] [facility] () In 3 days 04/22/2025 Comments: [...] opioids can be used to help relieve uvzwqfnr-ie-epypti pain and are often prescribed following a [...] prescription opioids. o Ta (more content not included)...NormalMansfield HospitalExtra Blueon 53-57-1094Jypx Collected PlasmaYesInvalid Interpretation CodeMansfield HospitalComment on above:Performed By: #### [id number] #### [facility] [address], [place] [address]Asa Func Panelon 25-74-2331Sdzilxt [Mass/Vol]4.4 g/dLNormal 3.3-5.0Mansfield HospitalComment on above:Performed By: #### [id number] #### [facility] [address], [place] [address]Yelhjtz/Globulin [Mass ratio]1.6 {ratio}Normal1.1-2.2FPremier Health Atrium Medical CenterComment on above:Performed By: #### [id number] #### [facility] [address], [place] [address]Bda Phos59 Int._Unit/WPqbavl29-30TeevydMansfield Hospital Comment on above:Performed By: #### [id number] #### [facility] [address], [place] [address]XGQ38 Int._Unit/LNormal6-46Mansfield HospitalComment on above:Performed By: #### [id number] #### [facility] [address], [place] [address]WQE83 Int._Unit/LNormal5-43Mansfield HospitalComment on above:Performed By: #### [id number] #### [facility] [address], [place] [address]Sjbm Direct0.1 mg/dLNormal0.0-0.4FPremier Health Atrium Medical Center Comment on above:Performed By: #### [id number] #### [facility] [address], [place] [address]Gjxe Indirect1.0 mg/dLHigh0.1-0.9[facility] Comment on above:Performed By: #### [id number] #### [facility] [address], [place] [address]Vwqb Total1.1 mg/dLNormal0.0-1.1FPremier Health Atrium Medical Center Comment on above:Performed By: #### [id number] #### [facility] [address], [place] [address]Htasgani (S) [Mass/Vol]2.7 g/dLNormal1.4-4.0Mansfield HospitalComment on above:Performed By: #### [id number] #### [facility] [address], [place] [address]Ozzzeji [Mass/Vol]7.1 g/dLNormal6.0-7.8Mansfield HospitalComment on above:Performed By: #### [id number] #### [facility] [address], [place] [address]Egbjoz Levelon 49-12-1191Fqjrfk Lvl23 unit/HYukkcj33-80SlmmrvMansfield HospitalComment on above:Performed By: #### [id number] #### [facility] [address], [place] [address]DN with Cult Rflxon 46-74-9024Eiicu (U)Light-YellowNormalYellow Mansfield HospitalComment on above:Result Comment: Microscopic readings are only performed on those samples that meet specific criteria set forth by [facility].Performed By: #### [id number] #### [facility] [address], [place] [address]Pzyvchp (U) [Mass/Vol]NegativeNormalNegativeMansfield HospitalComment on above:Performed By: #### [id number] #### [facility] [address], [place] [address]Ccaittv Ql (U)NegativeNormalNegSt. Mary's Medical Center Comment on above:Performed By: #### [id number] #### [facility] [address], [place] [address]PB BloodNegativeNormalNegSt. Mary's Medical Center Comment on above:Performed By: #### [id number] #### [facility] [address], [place] [address]WP ClarityClearNormalClearMansfield HospitalComment on above:Performed By: #### [id number] #### [facility] [address] [facility], [place] [address]VY Leuk EstNegativeNormalNegSt. Mary's Medical Center Comment on above:Performed By: #### [id number] #### [facility] [address], [place] [address]MA NitriteNegativeNormalNegSt. Mary's Medical Center Comment on above:Performed By: #### [id number] #### [facility] [address], [place] [address]AZ pH6.5Invalid Interpretation Code5.0-9.0Mansfield HospitalComment on above:Performed By: #### [id number] #### [facility] [address], [place] [address]HX ProteinNegativeNormalNegSt. Mary's Medical Center Comment on above:Performed By: #### [id number] #### [facility] [address], [place] [address]VO Spec Grav1.005Invalid Interpretation Code1.005-1.030Mansfield HospitalComment on above:Performed By: #### [id number] #### [facility] [address], [place] [address]OJ UrobilinogenNegativeNormalNegSt. Mary's Medical CenterComment on above:Performed By: #### [id number] #### [facility] [address], [place] [address]Bckaxkilrmnb (U) [Mass/Vol]NegativeNormalNegativeFisher Holy Cross HospitalComment on above:Performed By: #### [id number] #### [facility] [address], [place] [address]XL Spec DescClean CatchNormalEcu Health Bertie Hospitaler [facility] Cross HospitalComment on above:Performed By: #### [id number] #### [facility] [address], [place] [address]bQFFiz 76-78-5809cZRJ37 mL/min/1.73 m2Low>=59Fisher Holy Cross HospitalComment on above:Performed By: #### [id number] #### [facility]en [facility] [address] [place] [address]BSTEfo 17-55-6156HYQI Attestation signed by Gabe Martinez MD at [...] Date/Time: 04/16/251199 Procedure: TRANSESOPHAGEAL ECHO (HAROON) Location: [facility] Vascular Lab Clinical information reviewed: Allergies Meds Physical Exam Airway Mallampati: III Cardiovascular Rhythm: regular Dental Pulmonary Neurological Abdominal Anesthesia Plan ASA 3 other (Conscious sedation) intravenous induction Anesthetic plan and risks discussed with patient. Use of blood products discussed with patient who consented to blood products. Plan discussed with attending and fellow. Additional Equipment RequestsNormalUniversBerger HospitalHPon 78-12-3573MB Attestation signed by Gabe Martinez MD at [...] there are no changes to the H&P. [facility] HospitalNURSMountain Lakes Medical Center 89-58-3559TTPDCDTMXcroafc swallow study completed and passed. RN educated [...] wheeled off of unit with all of belongings.[facility] HospitalUrinalysis macro (dipstick) panel (U)on 33-78-4133Aclxgbkjf, UA NegativeNegative - 4(70) +++ mg/dLNOMS HealthcareBlood, UANegativeNegative - 50 Pedro/mcLNOMS HealthcareClarity, UAClearNOMS HealthcareColor, UAYellowNOMS HealthcareGlucose, UANegativeNegative - 2000(110) ++++ mg/dLNOMS Healthcare Ketones, UANegativeNegative - 160(16) ++++ mg/dLNOMS HealthcareLeukocytes, UA NegativeNegative - 500+++ Ghislaine/mcLNOMS HealthcareNitrite, UANegativeNegative - PositiveNOMS HealthcarepH, UA65 - 9NOMS HealthcareProtein, UANegativeNegative - 2000(20) ++++ mg/dLNOMS HealthcareSpec Grav, UA1.0051 - 1.03N[facility]S Healthcare Urobilinogen, UA0.20.2 - 12 mg/dLNOMS HealthcareNOMS Cqbryutcmi50do Patient called saying she forgot to mention [...] for tricuspid valve. 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 The plan was to add Jardiance. There is note of her to being evaluated by CT surgery Dr. Sorto regarding candidacy for cardiac surgery and she was deemed high risk. She was also [facility] at [facility] cardi[facility]. Initial workup for her [...] Eliquis. She has under (more content not included)...NormalOhioHealth Berger HospitalOffice Visiton 31-01-1701Obiexq-up [id number] Harjit Asencio I 1950 F Date Provider Department Center 03/31/2025 RAFAEL PEDERSEN CECILE Davies Family History Problem Relation Age of Onset Coronary artery disease Mother Diabetes Mother Coronary artery disease Father Family Status - Relation Status Age at Mother Father Sister Brother Alive Level of Service:36739 ID OFFICE/OUTPATIENT ESTABLISHED MOD MDM 30 [facility]36on [id number] to 6.25mg BID [place] [address]on 83-16-465852Zwjigcs called reported that she ran out of her carvedilol, discussed with patient to start on Coreg 6.25 mg bid, I also discussed this plan with her primary labor specialist , patient will have to monitor her blood pressure at home. Yadiel Haines MD PGY-[address] [facility] Mary HospitalTelephoneon [id number] Harjit Asencio I 1950 Provider Department Center 02/11/2025 1314YADIEL BOYER [facility] CARD [facility] Family History Problem Relation Age of Onset Coronary artery disease Mother Diabetes Mother Coronary artery disease Father Family Status - Relation Status Age at Mother Father Sister Brother [facility]German [facility] 02-10-2025 Follow-[id number] Harjit Asencio I 1950 Provider Department Center 02/10/2025 RAFAEL PEDERSEN [facility] Family History Problem Relation Age of Onset Coronary artery disease Mother Diabetes Mother Coronary artery disease Father Family Status - Relation Status Age at Mother Father Sister Brother Alive Level of Service:92216 ID OFFICE/OUTPATIENT ESTABLISHED MOD MDM [address] [id number], would it be ok for her to hold Eliquis for a few days with her recent MitraClip or does she need to continue and maybe reduce the dose? -Maybe we move forward with Watchman for her after you see her on 02/10?[facility]36George, would it be ok for her to hold Eliquis for a few days with her recent MitraClip or does she need to continue and maybe reduce the dose? -Maybe we move forward with Watchman for her after you see her on 02/10?[facility] 77-11-6786Qpprth-[id number] Harjit Asencio I 1950 Provider Department Center 01/23/2025 ROSA HOWELLA CARD [facility] Family History Problem Relation Age of Onset Coronary artery disease Mother Diabetes Mother Coronary artery disease Father Family Status - Relation Status Age at Mother Father Sister Brother Alive Level of Service:82175 ID OFFICE/OUTPATIENT ESTABLISHED MOD MDM 30 MIN Reason for Visit and Comments: Valve Disorder [3372] Atrial Fibrillation [80]NormalUnChildren's Hospital of Columbus30on 01-15-2025 30The patient is Moderately Unstable - [...] are monitored and maintained or improved Outcome: ProgressingNormalUniversBerger HospitalBASIC METABOLIC PANELon 08-53-3553Qxrlf gap [Moles/Vol]13 mmol/LNormal7-20UnChildren's Hospital of ColumbusComment on above:Performed By: #### [id number] #### [facility] ([facility]) [address] [place], [place] [address]Gkicqzx [Mass/Vol]8.3 mg/dLLow8.6-10.3UnChildren's Hospital of ColumbusComment on above:Performed By: #### [id number] #### [facility] ([facility]) [address] [place], [place] [address]Luxcmztz [Moles/Vol]106 mmol/ELovksu66-851RirmmhesurChildren's Hospital of ColumbusComment on above:Performed By: #### [id number] #### [facility] ([facility]) [address] [place], [place] [address]SV1 [Moles/Vol]19 mmol/GGtl99-83ShezqkniicChildren's Hospital of ColumbusComment on above:Performed By: #### [id number] #### [facility] ([facility]) [address] [place], [place] [address]Kpmenhgnmi [Mass/Vol]0.84 mg/dLNormal0.60-1.20UnChildren's Hospital of ColumbusComment on above:Performed By: #### [id number] #### [facility] ([facility]) [address] [place] [id number] FILTRATION RATE ML/MIN/1.73 SQ M.NZGCNWTRE43.0 mL/min/1.73m*2Normal>60.0UnChildren's Hospital of ColumbusComment on above: Result Comment: [facility]???s estimated glomerular filtration rate (eGFR) will [...] group of individuals.Performed By: #### [id number] #### [facility] ([facility]) [address] [place] [place], [place] [address]Sufyxzr [Mass/Vol]123 mg/mXVzpc22-521TtkklqzzvbChildren's Hospital of ColumbusComment on above:Performed By: #### [id number] #### [facility] ([facility]) [address] [place], [place] [address]Rjlaknxtd [Moles/Vol]4.7 mmol/LNormal3.5-5.1UnChildren's Hospital of ColumbusComment on above:Performed By: #### [id number] #### [facility] ([facility]) [address] [place] [id number] [Moles/Vol]133 mmol/VHac435-079IavjyktaatChildren's Hospital of ColumbusComment on above:Performed By: #### [id number] #### [facility] ([facility]) [address] [place] [id number] nitrogen [Mass/Vol]16 mg/dLNormal7-25UnChildren's Hospital of ColumbusComment on above:Performed By: #### [id number] #### [facility] ([facility]) [address] [place] [id number] NITROGEN/CREATININE (MASS RATIO) IN SER/PLAS19.0Normal [facility] HospitalComment on above:Performed By: #### [id number] #### [facility] ([facility]) [address] [place] [id number] 44-02-9549Pewoxwcpscm distribution width (RBC) [Ratio]13.4 %Eqzmum11.5-15.0UnChildren's Hospital of ColumbusComment on above:Performed By: #### [id number] #### [facility] ([facility]) [address] [place] [address]ZNUYRKBJXFL MEAN CORPUSCULAR HEMOGLOBIN CONCENTRATION (G/DL) BY HQLMNXPLA73.1 g/dLLow32.0-35.0UnChildren's Hospital of ColumbusComment on above:Performed By: #### [id number] #### [facility] ([facility]) [address] [place], [place] [address]Xaanslnaiq (Bld) [Volume fraction]45.2 %High36.0-45.0UnChildren's Hospital of ColumbusComment on above:Performed By: #### [id number] #### [facility] ([facility]) [address] [place], [place] [address]Fbkurbhhxq (Bld) [Mass/Vol]13.6 g/zBToaxwe95.0-15.0UnChildren's Hospital of ColumbusComment on above:Performed By: #### [id number] #### [facility] ([facility]) [address] [place], [place] [address]ACK (RBC) [Entitic mass]30.4 jgNlddzy14.0-33.0UnChildren's Hospital of ColumbusComment on above:Performed By: #### [id number] #### [facility] ([facility]) [address] [place] [id number] (RBC) [Entitic vol]100.9 xTOgwv40.0-98.0UnChildren's Hospital of ColumbusComment on above:Performed By: #### [id number] #### [facility] ([facility]) [address] [place], [place] [address]IVBGEMZFM (10*3/UL) IN BLOOD AUTOMATED FBYGH862 10*3/uLNormal 150-400UnChildren's Hospital of ColumbusComment on above:Performed By: #### [id number] #### [facility] ([facility]) [address] [facility] [facility] [address] [place], [place] [address]OKG (Bld) [#/Vol]4.48 10*6/uLNormal3.80-5.00UnChildren's Hospital of ColumbusComment on above:Performed By: #### [id number] #### [facility] ([facility]) [address] [place], [place] [address]WMS (Bld) [#/Vol]12.19 10*3/uLHigh4.00-10.60UnChildren's Hospital of ColumbusComment on above:Performed By: #### [id number] #### [facility] ([facility]) [address] [place], [place] [address]VCfl 78-49-8073KSXwdrzijyp Admitted 01/14/2025 for Nonrheumatic mitral valve regurgit* [...] accessory muscle use. Cl (more content not included)...NormalOhioHealth Berger Hospital30on 88-71-524808Cke patient is Moderately Stable - Low risk [...] comfort level Outcome: Progressing Flowsheets (Taken 01/14/2025 6882) Verbalizes/displays adequate comfort level or baseline comfort [...] and behaviors that affect risk of falls Miracle fall precautions as indicated by assessment Educate [...] exacerbated and prevent overall improvement and dischargeNormalUniversity [facility]30The patient is Moderately Unstable - Medium [...] monitored and maintained or improved Outcome: ProgressingNormalUniversity Riverside Methodist HospitalBASIC METABOLIC PANELon 39-60-5227Zkfpv gap [Moles/Vol]9 mmol/LNormal7-20UnChildren's Hospital of ColumbusComment on above:Performed By: #### [id number] #### [facility] ([facility]) [address] [place] [id number] [Mass/Vol]8.5 mg/dLLow8.6-10.3UnChildren's Hospital of ColumbusComment on above:Performed By: #### [id number] #### [facility] ([facility]) [address] [place] [id number] [Moles/Vol]107 mmol/TAhrjpy67-904RjxwaoabrlChildren's Hospital of ColumbusComment on above:Performed By: #### [id number] #### [facility] ([facility]) [address] [place] [id number] [Moles/Vol]26 mmol/YEegyyq23-58WdnoruoqpiChildren's Hospital of ColumbusComment on above:Performed By: #### [id number] #### [facility] ([facility]) [address] [place] [id number] [Mass/Vol]0.80 mg/dLNormal0.60-1.20UnChildren's Hospital of ColumbusComment on above:Performed By: #### [id number] #### [facility] ([facility]) [address] [place] [id number] FILTRATION RATE ML/MIN/1.73 SQ M.BPRUMYGZG65.3 mL/min/1.73m*2Normal>60.0UnChildren's Hospital of ColumbusComment on above: Result Comment: [facility]???s estimated glomerular filtration rate (eGFR) will [...] group of individuals.Performed By: #### [id number] #### [facility] ([facility]) [address] [place], [place] [address]Bljroci [Mass/Vol]97 mg/lKJtfguf18-404OvtphgsxznChildren's Hospital of ColumbusComment on above:Performed By: #### [id number] #### [facility] ([facility]) [address] [place], [place] [address]Qaxysgtqo [Moles/Vol]3.9 mmol/LNormal3.5-5.1UnChildren's Hospital of ColumbusComment on above:Performed By: #### [id number] #### [facility] ([facility]) [address] [place], [place] [address]Vviqye [Moles/Vol]138 mmol/UEckfdc105-359OguuyebrenChildren's Hospital of ColumbusComment on above:Performed By: #### [id number] #### [facility] ([facility]) [address] [place], [place] [address]Qdlx nitrogen [Mass/Vol]11 mg/dLNormal7-25UnChildren's Hospital of ColumbusComment on above:Performed By: #### [id number] #### [facility] ([facility]) [address] [place], [place] [address]TIBI NITROGEN/CREATININE (MASS RATIO) IN SER/PLAS13.8Normal [facility] HospitalComment on above:Performed By: #### [id number] #### [facility] ([facility]) [address] [place], [place] [address]TJP WITH AUTO DIFFERENTIALon 32-77-2866Sxyiilvmy (Bld) [#/Vol] 0.03 10*3/uLNormal0.00-0.20UnChildren's Hospital of ColumbusComment on above: Performed By: #### [id number] ####[facility] ([facility])[address] [facility] [place] [address]Ccrdonqyp/100 WBC (Bld)0.6 %Normal0.0-1.0UnChildren's Hospital of ColumbusComment on above:Performed By: #### [id number] ####[facility] ([facility])[address] [place], [place] [address]Ktucoiyahfw (Bld) [#/Vol]0.07 10*3/uL Normal0.00-0.50UnChildren's Hospital of ColumbusComment on above:Performed By: #### [id number] ####[facility] [place] [address] Eosinophils/100 WBC (Bld)1.4 %Normal0.0-6.0UnChildren's Hospital of [facility] Comment on above:Performed By: #### [id number] ####[facility] ([facility])[address] [place], [place] [address]Snamgnypnkr distribution width (RBC) [Ratio]13.4 % Pieglp95.5-15.0UnChildren's Hospital of ColumbusComment on above:Performed By: #### [id number] ####[facility] ([facility])[address] [place] [address] ERYTHROCYTE MEAN CORPUSCULAR HEMOGLOBIN CONCENTRATION (G/DL) BY ZTMZGPIEN20.0 g/aHPwmeqp93.0-35.0UnChildren's Hospital of ColumbusComment on above:Performed By: #### [id number] ####[facility] ([facility])[address] [place], [place] [address]Cpilrifoch (Bld) [Volume fraction]35.8 %Low36.0-45.0UnChildren's Hospital of ColumbusComment on above:Performed By: #### [id number] ####[facility] [place], [place] [address]Onvwcfaewt (Bld) [Mass/Vol]11.8 g/dL Low12.0-15.0UnChildren's Hospital of ColumbusComment on above:Performed By: #### [id number] ####[facility] [place] [address] Immature granulocytes (Bld) [#/Vol]0.02 10*3/uLNormal0.00-0.20UnChildren's Hospital of ColumbusComment on above:Performed By: #### [id number] ####[facility] [facility] [place] [address]Hpnfmels granulocytes/100 WBC (Bld)0.4 %Normal0.0-1.0UnChildren's Hospital of ColumbusComment on above: Performed By: #### [id number] ####[facility] ([facility])[address] [place] [address]Zqfryfzzgxj (Bld) [#/Vol]1.34 10*3/uLNormal1.20-4.00 [facility] HospitalComment on above:Performed By: #### [id number] ####[facility] ([facility])[address] [facility] [place]ENTER[place], [place] [address]Afvuuzgsdmm/100 WBC (Bld)27.7 %Tbjfse39.0-45.0UnChildren's Hospital of ColumbusComment on above:Performed By: #### [id number] ####[facility] ([facility])[address] [place], [place] [address]BKG (RBC) [Entitic mass]31.1 rrReycqc70.0-33.0UnChildren's Hospital of ColumbusComment on above:Performed By: #### [id number] ####[facility] ([facility])[address] [place], [place] [address]BAR (RBC) [Entitic vol] 94.2 bYIzpexx46.0-98.0UnChildren's Hospital of ColumbusComment on above: Performed By: #### [id number] ####[facility] ([facility])[address] [facility] [place]ENTER[place], [place] [address]Gxpwhzuwm (Bld) [#/Vol]0.40 10*3/uLNormal0.10-1.00UnChildren's Hospital of ColumbusComment on above:Performed By: #### [id number] ####[facility] ([facility])[address] [place], [place] [address]Tvvptxkrt/100 WBC (Bld) 8.3 %Normal5.0-12.0UnChildren's Hospital of ColumbusComment on above:Performed By: #### [id number] ####[facility] ([facility])[address] [place] [address]Hheoppimnrp (Bld) [#/Vol]2.98 10*3/uLNormal1.60-7.60[facility] HospitalComment on above:Performed By: #### [id number] ####[facility] ([facility])[address] [address]Lxdybxzlcgd/100 WBC (Bld)61.6 %Normal 40.0-72.0UnChildren's Hospital of ColumbusComment on above:Performed By: #### [id number] ####[facility] ([facility])[address] [address]AZZQ (PER 100 WBCS) BY AUTOMATED COUNT0.0 %Sufczm8GrpjqazaqvChildren's Hospital of Columbus Comment on above:Performed By: #### [id number] ####[facility] CENTER)[address] [place] [id number] (10*3/UL) IN BLOOD AUTOMATED [id number] 10*3/cBLffqev527-568EwoqccrzmvChildren's Hospital of ColumbusComment on above: Performed By: #### [id number] ####[facility] ([facility])[address] [place] [id number] (Bld) [#/Vol]3.80 10*6/uLNormal3.80-5.00UnChildren's Hospital of ColumbusComment on above:Performed By: #### [id number] ####[facility] ([facility])[address] [id number] (Bld) [#/Vol]4.84 10*3/uLNormal4.00-10.60UnChildren's Hospital of ColumbusComment on above: Performed By: #### [id number] ####[facility] ([facility])[address] [place] [address]RQds 08-81-4239RLV&P reviewed. The patient was examined and there are no changes to the H&P.NormalUnChildren's Hospital of ColumbusPOCT GLUCOSE METER UNSOLICITED RESULTSon 70-33-7481Htyisti [Mass/Vol]92 mg/dLNormal 70-105UnChildren's Hospital of ColumbusComment on above:Order Comment: Waived Testing in the ED is performed under the ED CLIA certificate #[id number].Result Comment: [id number] By: #### [id number] #### [facility] LAB (BEAKER) [address] [place], [place] [address]AGGAJOP-DCVad [id number] IN PPP BY COAGULATION ASSAY1.08 Normal0.90-1.10UnChildren's Hospital of ColumbusComment on above:Result Comment: ACCCP RECOMMENDED INR FOR [...] OPTIMAL THERAPEUTIC RANGE. CHEST 1995;108:231S-246S.Performed By: #### [id number] #### [facility] [address] [place] [address] USAPROTHROMBIN TIME (PT) IN PPP BY COAGULATION ASSAY14.0 AhawdhnKtldir96.3-14.8UnChildren's Hospital of ColumbusComment on above: Performed By: #### [id number] #### [facility] [address] [place] [address] USATYPE AND SCREENon 74-12-6710IA SCREENNegativeNormal [facility] HospitalComment on above:Performed By: #### [id number] #### [facility]ERAP[facility] [address] [place] [address] USAABO group Nom (Bld)ONSt. Charles HospitalComment on above:Performed By: #### [id number] #### [facility]ERAP[facility] [address] [place] [address] USARH TYPE IN BLOODPositiveNormalUniSheltering Arms HospitalComment on above:Performed By: #### [id number] #### [facility] [address] [place] [address] USAOrders Onlyon 80-63-4196Ezlqsg [id number] Elif,Harjit I 1950 F Date Provider Department Center 01/13/2025 42782-OBNFRUSMAN COLE [facility] [place] [facility] Family History Problem Relation Age of Onset Coronary artery disease Mother Diabetes Mother Coronary artery disease Father Family Status - Relation Status Age at Mother Father Sister Brother AliveNoEast Ohio Regional HospitalOrders Onlyon 01-09-2025 Orders [id number] Elif,Harjit I 1950 F Date Provider Department Center 01/09/2025 Martha[facility]CA [facility] Family History Problem Relation Age of Onset Coronary artery disease Mother Diabetes Mother Coronary artery disease Father Family Status - Relation Status Age at Mother Father Sister Brother AliveNormalUAvita Health SystemOrders Onlyon 01-08-2025 Orders [id number] Elif,Harjit I 1950 F Date Provider Department Center 01/08/2025 RADHA CHAVEZ [facility] [place] [facility] Family History Problem Relation Age of Onset Coronary artery disease Mother Diabetes Mother Coronary artery disease Father Family Status - Relation Status Age at Mother Father Sister Brother AliveNormalUniSheltering Arms HospitalDocumentationon 12-25-2024 [id number] Elif,Harjit I 1950 F Date Provider Department Center 12/25/2024 325-GABE MARTINEZ [facility] [place] [facility] Family History Problem Relation Age of Onset Coronary artery disease Mother Diabetes Mother Coronary artery disease Father Family Status - Relation Status Age at Mother Father Sister Brother AliveCleveland Clinic Lutheran HospitalTenaval medical center portsmouthon 12-24-2024 [id number] Harjit Asencio I 1950 F Date Provider Department [place] 12/24/2024 BIANCA MIGUEL [facility] Family History Problem Relation Age of Onset Coronary artery disease Mother Diabetes Mother Coronary artery disease Father Family Status - Relation Status Age at Mother Father Sister Brother AliveNoMercy Health West Hospital 47-74-0256FDMM Cardiology [facility] Subjective Harjit Asencio is a [...] At her recent visit with cardiology at [facility] on 09/26/2023 valsartan was stopped and low-dose lisinopril 5 mg once daily was added. The plan was to add Jardiance. There is note of her to being evaluated by CT surgery Dr. Sorto regarding candidacy for cardiac surgery and she was deemed high risk. [facility]. Initial workup for her mitral valve disease was started. Spironolactone was changed to half tablet twice a day instead of 1 tablet once a day. She was also recommended to start taking digoxin at night instead of the morning. At visit with [facility] on 10/[facility]/2023 I increased her carvedilol to [...] and are negativ (more content not included)...Normal [facility] HospitalOffice Visiton 18-49-8314Arvjtv-up visit [id number] Harjit Asencio I 1950 F Date Provider Department Center 12/23/2024 RAFAEL PEDERSEN CECILE [facility] Family History Problem Relation Age of Onset Coronary artery disease Mother Diabetes Mother Coronary artery disease Father Family Status - Relation Status Age at Mother Father Sister Brother Alive Level of Service:05771 ID OFFICE/OUTPATIENT ESTABLISHED [facility]ENTERNoAvita Health SystemUrinalysis macro (dipstick) panel (U)on 26-32-5513Itqdltoxe, UANegativeNegative - 4(70) +++ mg/dLNOMS HealthcareBlood, UAPositiveNegative - 50 Pedro/mcLNOIN HealthcareClarity, UAClearNOMS Healthcare Color, UAYellowNOMS HealthcareGlucose, UANegativeNegative - 2000(110) ++++ mg/dL [facility] HealthcareInterpretation and review of laboratory resultsAbnormalNOMS HealthcareKetones, UANegativeNegative - 160(16) ++++ mg/dLNOMS Healthcare Leukocytes, UANegativeNegative - 500+++ Ghislaine/mcLNOMS HealthcareNitrite, UA NegativeNegative - PositiveNOMS HealthcarepH, UA65 - 9NOMS HealthcareProtein, UA NegativeNegative - 2000(20) ++++ mg/dLNOMS HealthcareSpec Grav, UA1.0051 - 1.03 NOMS HealthcareUrobilinogen, UA0.20.2 - 12 mg/dLNOMS HealthcareNOMS Healthcare ANESon 18-95-5207BICK Attestation signed by Gabe Martinez MD at [...] 11/29/24 0900 Procedure: TRANSESOPHAGEAL ECHO (HAROON) Location: [facility] Vascular Lab Clinical information reviewed: Allergies Meds OB Status Physical Exam Airway Mallampati: III Cardiovascular Dental Pulmonary Abdominal Anesthesia Plan ASA 3 other (Conscious sedation) intravenous induction Anesthetic plan and risks discussed with patient. Use of blood products discussed with patient who consented to blood products. Plan discussed with attending and fellow. Additional Equipment RequestsNormalUniversBerger HospitalBASIC METABOLIC PANELon 72-89-0150Svoij gap [Moles/Vol]9 mmol/LNormal7-20UnChildren's Hospital of ColumbusComment on above:Performed By: #### [id number] #### [facility] ([facility]) [address] [place], [place] [address]Ipnhund [Mass/Vol]9.1 mg/dLNormal8.6-10.3UnChildren's Hospital of ColumbusComment on above:Performed By: #### [id number] #### [facility] ([facility]) [address] [place], [place] [address]Kftfvlij [Moles/Vol]102 mmol/MHwshhp26-144LqbuvdivihChildren's Hospital of ColumbusComment on above:Performed By: #### [id number] #### [facility] ([facility]) [address] [place] [id number] [Moles/Vol]32 mmol/SQnkm58-71QetcbtrvhlChildren's Hospital of ColumbusComment on above:Performed By: #### [id number] #### [facility] ([facility]) [address] [place] [id number] [Mass/Vol]0.85 mg/dLNormal0.60-1.20UnChildren's Hospital of ColumbusComment on above:Performed By: #### [id number] #### [facility] ([facility]) [address] [place] [id number] FILTRATION RATE ML/MIN/1.73 SQ M.DGRGWWRTM20.0 mL/min/1.73m*2Normal>60.0UnChildren's Hospital of ColumbusComment on above: Result Comment: [facility]???s estimated glomerular filtration rate (eGFR) will [...] group of individuals.Performed By: #### [id number] #### [facility] ([facility]) [address] [id number] [Mass/Vol]96 mg/oFPwhfqq75-677QgrjotkauxChildren's Hospital of ColumbusComment on above:Performed By: #### [id number] #### [facility] ([facility]) [address] [place] [id number] [Moles/Vol]4.9 mmol/LNormal3.5-5.1UnChildren's Hospital of ColumbusComment on above:Performed By: #### [id number] #### [facility] ([facility]) [address] [place] [id number] [Moles/Vol]138 mmol/WBaplns009-856TmazusplxyChildren's Hospital of ColumbusComment on above:Performed By: #### [id number] #### [facility] ([facility]) [address] [place] [id number] nitrogen [Mass/Vol]14 mg/dLNormal7-25UnChildren's Hospital of ColumbusComment on above:Performed By: #### [id number] ####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 [place] [address]Xnkpsntljk (Bld) [Volume fraction]42.0 %Hnatog50.0-46.0[facility] HospitalComment on above:Performed By: #### [id number] #### [facility] [address], [place] [address]Ixsmquavux (Bld) [Mass/Vol]13.9 g/lYLetehl29.0-16.0[facility] HospitalComment on above:Performed By: #### [id number] #### [facility] [address] [place] [address] 288[address]Fnnulytsrww (Bld) [#/Vol]2.1 E9/LNormal1.0-4.0[facility] HospitalComment on above:Performed By: #### [id number] #### [facility] [address] [place] [address] 616[address]Yuoffxsmlzc/100 WBC (Bld)25.6 %Dusosu42.0-50.0[facility] HospitalComment on above:Performed By: #### [id number] #### [facility] [address], [place] [address]QEL (RBC) [Entitic mass]30.3 urIwoapf44.0-34.0[facility] HospitalComment on above:Performed By: #### [id number] #### [facility] [address], [place] [address]WNMA (RBC) [Mass/Vol]33.1 g/nPInqgte56.4-36.0[facility] HospitalComment on above:Performed By: #### [id number] #### [facility] [address] [place] [address] 82029YPK (RBC) [Entitic vol]91.5 qXSdjzcb97.0-100.0[facility] HospitalComment on above:Performed By: #### [id number] #### [facility] [address] [place] [address] 28[address]Qyedgsgci (Bld) [#/Vol]0.5 E9/LNormal0.2-1.0[facility] HospitalComment on above:Performed By: #### [id number] #### [facility] [address] [place] [address] 24[address]Ljaqlpqttww (Bld) [#/Vol]5.5 E9/LNormal2.0-7.5FPremier Health Atrium Medical CenterComment on above:Performed By: #### [id number] #### [facility] [address] [place] [address]Iopfgkdazsx/100 WBC (Bld)66.8 %Fwjdyz67.0-75.0[facility] HospitalComment on above:Performed By: #### [id number] #### [facility] [address] [place] [address]Maladxom mean volume (Bld) [Entitic vol]8.3 fLNormal6.4-10.8 [facility] HospitalComment on above:Performed By: #### [id number] #### [facility] [address] [place] [address] 07[address]Slrytxron (Bld) [#/Vol]250.0 E9/OFclxyo730.0-500.0[facility] HospitalComment on above:Performed By: #### [id number] #### [facility] [address] [place] [address]RLY (Bld) [#/Vol]4.6 E12/LNormal4.3-5.9[facility] HospitalComment on above:Performed By: #### [id number] #### [facility] [address], [place] [address]EWY corrected for nucl RBC Auto (Bld) [#/Vol]8.3 E9/LNormal 4.0-11.0[facility] HospitalComment on above:Performed By: #### [id number] #### [facility] [address], [place] [address]KDDFUWLODEfpoxql By: SYSTEM SYSTEM on 83-35-3459Gpmcsnz [Mass/Vol]4.6 g/dLNormal3.3 - 5.0 gm/dLRemisol ChemAlbumin/Globulin [Mass ratio] 1.8 {ratio}Normal1.1 - 2.2Remisol ChemALP [Catalytic activity/Vol]90 [iU]/d Lpcgup22 - 98 Int._Unit/LRemisol ChemALT No additional P-5'-P [Catalytic activity/Vol]41 [iU]/dNormal6 - 46 Int._Unit/LRemisol ChemAnion gap [Moles/Vol] 13 mmol/LNormal6 - 16 mEq/LRemisol ChemAST [Catalytic activity/Vol]30 [iU]/d Normal5 - 43 Int._Unit/LRemisol ChemBilirubin [Mass/Vol]1.0 mg/dLNormal0.0 - 1.1 mg/dLRemisol ChemCalcium [Mass/Vol]10.0 mg/dLNormal8.9 - 11.1 mg/dLRemisol Chem Chloride [Moles/Vol]99 mmol/UTtr313 - 111 mmol/LRemisol ChemCO2 [Moles/Vol]27 mmol/XWhevyx12 - 31 mmol/LRemisol ChemCreatinine [Mass/Vol]1.0 mg/dLNormal0.5 - 1.3 mg/dLRemisol XyielJZK49 mL/min/1.73 m2Low>=59mL/min/1.73 i2Zmnxrmg Chem Globulin (S) [Mass/Vol]2.6 g/dLNormal1.4 - 4.0 gm/dLRemisol ChemGlucose [Mass/Vol]114 mg/kTElhtpl16 - 199 mg/dLRemisol ChemMagnesium [Mass/Vol]2.0 mg/dL Normal1.3 - 2.4 mg/dLRemisol ChemPotassium [Moles/Vol]4.2 mmol/LNormal3.5 - 5.3 mmol/LRemisol ChemProtein [Mass/Vol]7.2 g/dLNormal6.0 - 7.8 gm/dLRemisol Chem Sodium [Moles/Vol]135 mmol/UHlazdg388 - 145 mmol/LRemisol ComwDlleeizq70.30 pg/hJFvajrn80.10 - 27.10 pg/mLRemisol ChemComment on above:Interpretive Data: The 95% CI (Confidence Interval) PPV (Positive Predictive Value) for myocardial infarction in females is 38 pg/mL, in males 51 pg/mL. The results should be used in conjunction withclinical conditions of myocardial infarction. (Access High Sensitivity Troponin I Instructions For Use, [place], March 2018)Urea nitrogen [Mass/Vol]20 mg/dLNormal5 - 21 mg/dLRemisol ChemUrea nitrogen/Creatinine [Mass ratio]20 mg/xmSrodwc29 - 20Remisol ChemCMPon 54-52-7850Oamzawq [Mass/Vol]4.6 g/dLNormal3.3-5.0[facility] Comment on above:Performed By: #### [id number] #### [facility] [address], [place] [address]Kkdwfzh/Globulin (S) [Mass conc ratio]1.4Nupbjn0.1-2.2FPremier Health Atrium Medical CenterComment on above:Performed By: #### [id number] #### [facility] [address], [place] [address]YXY [Catalytic activity/Vol]90 Int._Unit/ZKqkqbd31-15PibtphMansfield HospitalComment on above:Performed By: #### [id number] #### [facility] [address], [place] [address]XCN No additional P-5'-P [Catalytic activity/Vol]41 Int._Unit/L Normal6-46M[facility] HospitalComment on above:Performed By: #### [id number] #### [facility] [address], [place] [address]Zubuh gap [Moles/Vol]13 mmol/LNormal6-16[facility] HospitalComment on above:Performed By: #### [id number] #### [facility] [address], [place] [address]JUQ [Catalytic activity/Vol]30 Int._Unit/LNormal5-43[facility] HospitalComment on above:Performed By: #### [id number] #### [facility] [address], [place] [address]Slavoypsk [Mass/Vol]1.0 mg/dLNormal0.0-1.1FPremier Health Atrium Medical CenterComment on above:Performed By: #### [id number] #### [facility] [address], [place] [address]Thkfkjf [Mass/Vol]10.0 mg/dLNormal8.9-11.1FPremier Health Atrium Medical CenterComment on above:Performed By: #### [id number] #### [facility] [address], [place] [address]Weuiecln [Moles/Vol]99 mmol/EQvf960-675AacnvaMansfield HospitalComment on above:Performed By: #### [id number] #### [facility] [address], [place] [address]TK8 [Moles/Vol]27 mmol/OFmynba18-42CgzsniMansfield Hospital Comment on above:Performed By: #### [id number] #### [facility] [address], [place] [address]Pspgasbqnp [Mass/Vol]1.0 mg/dLNormal0.5-1.3FPremier Health Atrium Medical CenterComment on above:Performed By: #### [id number] #### [facility] [address], [place] [address]Nchyiock (S) [Mass/Vol]2.6 g/dLNormal1.4-4.0[facility] HospitalComment on above:Performed By: #### [id number] #### [facility] [address], [place] [address]Yuozxzj [Mass/Vol]114 mg/oXJndsif00-895DtkcytMansfield HospitalComment on above:Performed By: #### [id number] #### [facility] [address], [place] [address]Fuaxcndbm [Moles/Vol]4.2 mmol/LNormal3.5-5.3FPremier Health Atrium Medical CenterComment on above:Performed By: #### [id number] #### [facility] [address], [place] [address]Jxeegff [Mass/Vol]7.2 g/dLNormal6.0-7.8[facility] HospitalComment on above:Performed By: #### [id number] #### [facility] [address], [place] [address]Khhyyf [Moles/Vol]135 mmol/LPqjdsn336-053NvcjneMansfield HospitalComment on above:Performed By: #### [id number] #### [facility] [address], [place] [address]Ghhh nitrogen [Mass/Vol]20 mg/dLNormal5-21M[facility] HospitalComment on above:Performed By: #### [id number] #### [facility] [address], [place] [address]Xzxk nitrogen/Creatinine [Mass ratio]20 No TzulgMqgakz48-60 [facility] HospitalComment on above:Performed By: #### [id number] #### [facility] [address], [place] [address]JDLJWZLKQVQNouvpkr By: Ally Dinero on 72-24-3498dYXY Coag (PPP) [Time]41.3 sHigh25.1 - 36.5 second(s)[facility] Auto CoagComment on above: Interpretive Data: Parameter [...] the same coagulation reagent and instrumentation as [facility]. Currently there are no coagulation studies available worldwide for children to 14 days, andno normal ranges. Heparin therapeutic range (represented by Anti-Factor Xa activity of 0.2 - 0.4 U/mL) corresponds to PTT of 56.6 - 109.0 sec.INR Coag (PPP) [Relative time]1.37 {INR}Invalid Interpretation CodeHILLCREST HOSPITAL SOUTH Auto CoagComment on above:Interpretive Data: INR results are specifically intended to assess patients stabilized on long-term Anticoagulation therapy suggested INR s Less Intensive Anticoagulation 2.0 3.0 Conventional Range 3.0 4.5PT Coag (PPP) [Time]15.4 sHigh9.4 - 12.5 second(s)[facility] Auto CoagComment on above:Interpretive Data: 15 days [...] the same coagulation reagent and instrumentation as [facility]. Currently there are no coagulation studies available worldwide for children to 14 days, andno normal ranges.Consent for Treatmenton 41-21-8016Bphqkil for Treatment [id number]#1.00TIFFNoAultman Alliance Community HospitalDischarge Instructionson 00-52-9614Nhqstgmjc Instructions [id number]#1.00TIFFNormalEusebiobruce [facility] Clinical Summaryon 95-34-5242QZ Clinical Summary [address] [address] ED Clinical Summary Person Information Name: HARJIT ASENCIO I [place] Age: 73 Years : 1950 Sex: Female Language: Danish PCP: Hannah Brian MD Marital Status: Visit [...] 11/22/2023 20:57:39 11/22/2023 20:57:39 11/22/2023 20:57:39 ADDRESS: [address] [place] [address] [address] [facility] [id number] PHYS DOC NOTES: MEDICAL INFORMATION: Prescriptions Given: New Medications [facility], [address], [place] [id number], [phone] lactulose (lactulose 10 g/15 mL Oral Syrup) [...] 0. PATIENT EDUCATION INFORMATION: Instructions: Constipation, Adult, Ubbx-jp-Tgkk Follow up: With: Address: When: Snehal MCMAHON, Hannah [place] [address] [place] [id number] In 3 days 11/25/2023 DIAGNOSIS: 1:ConstipationNormalFisher Oceana Medical CenterED Patient Education Noteon 97-02-8442WG Patient Education NoteGastroenterology Constipation, Adult Constipation is [...] in fat and sugar, such as: ? Anguillan fries. ? Hamburgers. ? Cookies. ? Candy. ? Soda. ? Drink enough fluid to keep your pee (urine) pale yellow. General instructions ? Exercise regularly or as told by your doctor. Try to do 150 minutes of exercise each week. ? Go to the restroom when you feel like you need to poop. Do not hold it in. ? Take ozru-qpg-xundlcb and prescription medicines only as told by [...] your pee (urine) pale yellow. ? Take lbfk-fqs-jfsnnog and prescription medicines only as told by your doctor. These include any fiber supplements. This information is not intended to replace advice given to you by your health care provider. Make sure you discuss any questions you have with your health care provider. Document Revised: 06/17/2020 Document Reviewed: 06/17/2020 [employer] Patient Education ? 2022 [employer].[facility] ED Patient Summaryon [id number] Patient Summary [place] [id number] Patient Discharge Instructions Person Information Name: HARJIT ASENCIO I Age: 73 Years Arrival Date: 11/22/2023 16:16:41 Discharge Diagnosis: 1:Constipation Primary Care Physician: Snehal MCMAHON, Hannah [place] Provider Information Primary Provider: Jayson Calloway DO [employer] Engineer:None The exam and treatment you received in the Emergency Department were for an urgent problem and are not intended as complete care. It is important that you follow up with a doctor, nurse practitioner,or physician?s bilingual administrative assistant for ongoing care. If your symptoms [...] MCMAHON, Hannah [place] [address] [place] [id number] In 3 days 11/25/2023 In the event that this physician does not participate in your insurance network, please consult with your insurance company to find a nearby participating provider. Patient Education Materials: Constipation, Adult, Orfm-bm-Dtbt A MESSAGE TO ALL PATIENTS REGARDING OPIOIDS PRESCRIPTION OPIOIDS: WHAT YOU NEED TO KNOW Prescription opioids can be used to help relieve thzwdnug-bo-fpnxdg pain and are often prescribed following a [...] your community drug take- back program or [employer] mail-back program, or flush them down the toilet, following guidance from the Food and Drug Administration (www.fda.gov/Drugs/ResourcesForYou). ? Visit www.cdc.gov/drugoverdose to learn about the risks of opioids abuse and overdose. ? If you believe you may be struggling with addiction, tell your health residential care officer and ask for guidance or call [facility]?S National Helpline at 9-054-325-HUSQ. v Source: US Department of Health and Human S (more content not included)... [facility] CenterHEMATOLOGYOrdered By: SYSTEM SYSTEM on 67-67-7364Vmbdafzwh/100 WBC (Bld)1.1 %Normal0.0 - 2.0 %Remisol Heme Basophils/Leukocytes Auto (Bld) [Pure # fraction]0.1 E9/LNormal0.0 - 0.2 E9/L Remisol HemeEosinophils (Bld) [#/Vol]0.0 E9/LNormal0.0 - 0.5 E9/LRemisol Heme Eosinophils/100 WBC (Bld)0.2 %Normal0.0 - 8.0 %Remisol HemeErythrocyte distribution width (RBC) [Ratio]14.7 %High10.9 - 14.2 %Remisol HemeHematocrit (Bld) [Volume fraction]42.0 %Wujdya28.0 - 46.0 %Remisol HemeHemoglobin (Bld) [Mass/Vol]13.9 g/lWVznkcr77.0 - 16.0 gm/dLRemisol HemeLymphocytes (Bld) [#/Vol] 2.1 E9/LNormal1.0 - 4.0 E9/LRemisol HemeLymphocytes/100 WBC (Bld)25.6 %Normal 14.0 - 50.0 %Remisol HemeMCH (RBC) [Entitic mass]30.3 ysLydyyv06.0 - 34.0 pg Remisol HemeMCHC (RBC) [Mass/Vol]33.1 g/dVPbljli19.4 - 36.0 gm/dLRemisol HemeMCV (RBC) [Entitic vol]91.5 jJQcqlbk35.0 - 100.0 fLRemisol HemeMonocytes (Bld) [#/Vol]0.5 E9/LNormal0.2 - 1.0 E9/LRemisol HemeMonocytes/100 WBC (Bld)6.3 % Normal4.0 - 14.0 %Remisol HemeNeutrophils (Bld) [#/Vol]5.5 E9/LNormal2.0 - 7.5 E9/LRemisol HemeNeutrophils/100 WBC (Bld)66.8 %Gkpyxh59.0 - 75.0 %Remisol Heme Platelet mean volume (Bld) [Entitic vol]8.3 fLNormal6.4 - 10.8 fLRemisol Heme Platelets (Bld) [#/Vol]250.0 E9/GNbjlrl010.0 - 500.0 E9/LRemisol HemeRBC (Bld) [#/Vol]4.6 E12/LNormal4.3 - 5.9 E12/LRemisol HemeWBC corrected for nucl RBC Auto (Bld) [#/Vol]8.3 E9/LNormal4.0 - 11.0 E9/LRemisol HemeMagnesiumon 11-22-2023 Magnesium [Mass/Vol]2.0 mg/dLNormal1.3-2.4FPremier Health Atrium Medical CenterComment on above:Performed By: #### [id number] #### Farshad [facility] [address], [place] [address]NG & PTTon 27-44-4795wEVI Coag (PPP) [Time]41.3 second(s)High 25.1-36.5FPremier Health Atrium Medical CenterComment on above:Result Comment: Parameter 15 days - [...] the same coagulation reagent and instrumentation as [facility]. Currently there are no coagulation studies available worldwide for children to 14 days, andno normal ranges. Heparin therapeutic range (represented by Anti-Factor Xa activity of 0.2 - 0.4 U/mL) corresponds to PTT of 56.6 - 109.0 sec.Performed By: #### [id number] #### [facility]arshad [facility] [address], [place] [address]HWC Coag (PPP) [Relative time]1.37 {INR}Invalid Interpretation CodeFishUniversity of Maryland Rehabilitation & Orthopaedic InstituteComment on above:Result Comment: INR results are specifically intended to assess patients stabilized on long-term Anticoagulation therapy suggested INR?s ?Less Intensive Anticoagulation? 2.0 ? 3.0 Conventional Range 3.0 ? 4.5Performed By: #### [id number] #### Yen [facility] [address], [place] [address]QS Coag (PPP) [Time]15.4 second(s)High9.4-12.5Fisher [facility] Cross HospitalComment on above:Result Comment: 15 days - [...] the same coagulation reagent and instrumentation as [facility]. Currently there are no coagulation studies available worldwide for children to 14 days, andno normal ranges.Performed By: #### [id number] #### Farshad [facility] [address], [place] [address]QCX - Preliminary Cat Scan Reporton 38-77-0319PNZ - Preliminary Cat Scan [id number]#1.00TIFFNormalMansfield HospitalTroponin 0 Hr.on 82-64-4025Pcvlbtct10.30 pg/mLNormal .10-27.10Mansfield HospitalComment on above:Result Comment: The 95% CI (Confidence Interval) PPV (Positive Predictive Value) for myocardial infa rction in females is 38 pg/mL, in males 51 pg/mL. The results should be used in conjunction with clinical conditions of myocardial infarction. (Access High Sensitivity Troponin I Instructions For Use, Marlys Ariadne, March 2018)Performed By: #### [id number] #### Yen [facility] [address], [place] [address]HZ with Cult Rflxon 35-22-5252Llzjphziy Ql (U)NegativeNormal NegativeMansfield HospitalComment on above:Performed By: #### 8557813, 28429110, 1836727, 1225802, 5937671, 0912662 #### [facility] [address] [place] [address]Qaacdas (U)ClearNormalClearMansfield HospitalComment on above:Performed By: #### 4121878, 33665919, 3195360, 5195531, 8982233, 6674250 #### [facility] [address] [place] [address]Poasx (U)ColorlessAbnormalYellowMansfield Hospital Comment on above:Result Comment: Microscopic readings are only performed on those samples that meet specific criteria set forth by [facility].Performed By: #### 5732720, 98657518, 3211398, 5686694, 9594660, 8412917 #### [facility] [address] [place] [address] 690[address]Ohmuszufvd cells.squamous Auto (Urine sed) [#/Area]2-3Nlmsdd1-1 [facility] HospitalComment on above:Performed By: #### 7169130, 42631729, 0984764, 0600272, 6246706, 8170757 #### [facility] [address] [place] [address]63[address]Eafyscx Ql (U)NegativeNormalNegSt. Mary's Medical Center Comment on above:Performed By: #### 7685073, 19961193, 5324492, 0432307, 7497192, 5770831 #### [facility] [address] [place] [address] 04882Cwkjasokaw Auto test strip (U) [Mass/Vol]NegativeNormalNegative [facility] HospitalComment on above:Performed By: #### 3323125, 62926926, 9615482, 3171384, 1995742, 1037631 #### [facility] [address] [place] [address] 27235Vepksiq Auto test strip Ql (U)NegativeNormalNegativeMansfield HospitalComment on above:Performed By: #### 3077943, 06074219, 6090609, 7804083, 1532005, 6672057 #### [facility] [address] [place] [address] 27437Udyaazivg esterase Auto test strip Ql (U)75 Ghislaine/uLAbnormal NegativeMansfield HospitalComment on above:Performed By: #### 6676404, 67378961, 5971252, 1451552, 6167082, 3775741 #### [facility] [address] [place] [address] 77341Bvmrr Auto Ql (U)NegativeNormalNegativeMansfield HospitalComment on above:Performed By: #### 7289043, 28723169, 4013267, 0466284, 3837097, 3454366 #### [facility] [address] [place] [address] 78689Oylrmzi Auto test strip Ql (U)NegativeNormalNegativeMansfield HospitalComment on above:Performed By: #### 2967282, 96008740, 6102328, 9543433, 4950402, 2496577 #### [facility] [address] [place] [address] 87640tE (U)7.0 [pH]Invalid Interpretation Code5.0-9.0Mansfield HospitalComment on above:Performed By: #### 0621948, 78977079, 3392387, 3253939, 5176230, 0595576 #### [facility] [address] [place] [address] 35067Fzzxrza Ql (U)NegativeNormalNegativeMansfield Hospital Comment on above:Performed By: #### 6627801, 89678901, 7990174, 3297504, 4493141, 8448826 #### [facility] [address] [place] [address] 90047LBI Ql (U)2-1Vtfgpy9-1Ihbpbn [facility] HospitalComment on above:Performed By: #### 1202006, 03697044, 0056835, 7110023, 7616916, 4400808 #### [facility] [address] [place] [address] 288[address]Hrjvjgkj gravity (U) [Rel density]1.004Invalid Interpretation Code1.005-1.030M[facility]field HospitalComment on above:Performed By: #### 8845228, 07048492, 2148642, 0468670, 4293711, 4333759 #### [facility] [address], [place] [address]Iswbwqkqqxye (U) [Mass/Vol]NegativeNormalNegativeMansfield HospitalComment on above:Performed By: #### 0528219, 41631651, 1349028, 7806255, 9572748, 8715281 #### [facility] [address], [place] [address]TZC Auto (Urine sed) [#/Area]4-1Thixut2-4Ntkvcm [facility] HospitalComment on above:Performed By: #### 0065689, 33356869, 3547902, 0921195, 4552218, 8498626 #### [facility] [address], [place] [address]Cahg of Urine collection methodClean CatchNoAultman Alliance Community HospitalComment on above:Performed By: #### 8976401, 64085677, 1603353, 8091364, 3248393, 8340876 #### [facility] [address], [place] [address]MKFBRZUTXJPghspig By: SYSTEM SYSTEM on 62-20-2672Edscpeojh Ql (U)NegativeNormalNegativemg/dLHILLCREST [facility]ITAL [facility]TH UA Auto SSClarity (U)Clear (11/22/23 4:36 PM)NormalClearFTM UA Auto SSColor (U)Colorless 1 *ABN* (11/22/23 4:36 PM)Invalid Interpretation CodeYellowHILLCREST HOSPITAL SOUTH UA Auto SSComment on above:Interpretive Data: Microscopic readings are only performed on those samples that meet specific criteria set forth by [facility].Epithelial cells.squamous Auto (Urine sed) [#/Area]0-2 graded/HPF Normal0-2graded/HPFHILLCREST HOSPITAL [facility]TH UA Auto SSGlucose Ql (U)NegativeNormalNegativemg/dLHILLCREST HOSPITAL SOUTH UA Auto SSHemoglobin Auto test strip (U) [Mass/Vol]NegativeNormalNegativemg/dL [facility] UA Auto SSKetones Auto test strip Ql (U)NegativeNormalNegativemg/dLHILLCREST HOSPITAL SOUTH UA Auto SSLeukocyte esterase Auto test strip Ql (U)75 Ghislaine/uL Ghislaine/uLInvalid Interpretation CodeNegativeLeu/uLHILLCREST HOSPITAL SOUTH UA Auto SSMucus Auto Ql (U)NegativeNormal Negativegraded/LPFFTMC UA Auto SSNitrite Auto test strip Ql (U)NegativeNormal Negativemg/dLHILLCREST HOSPITAL SOUTH UA Auto SSpH (U)7.0 *NA* (11/22/23 4:36 PM)Invalid Interpretation Code5.0 - 9.0[facility] UA Auto SSProtein Ql (U)NegativeNormalNegativemg/dLHILLCREST HOSPITAL [facility]OUTH UA Auto SSRBC Ql (U)0-3 graded/HPFNormal 0-3graded/HPFHILLCREST HOSPITAL SOUTH UA Auto SSSpecific gravity (U) [Rel density]1.004 *NA* (11/22/23 4:36 PM)Invalid Interpretation Code1.005 - 1.030[facility] UA Auto SS Urobilinogen (U) [Mass/Vol]NegativeNormalNegativemg/dLHILLCREST HOSPITAL SOUTH UA Auto SSWBC Auto (Urine sed) [#/Area]0-5 graded/HPFNormal0-5graded/HPFHILLCREST HOSPITAL SOUTH UA Auto SSURINALYSIS Ordered By: Sandhya Xavier on 62-19-1402JU Spec DescClean Catch (11/22/23 4:36 PM)NormalHILLCREST HOSPITAL SOUTH UA Auto SSXR Abdomen 1 Viewon 54-90-3805YN Abdomen 1 ViewExam Date/Time: 11/22/2023 17:37 EDT [...] Kar in mGy = na DAP = naNormalMansfield HospitaleGFRon 78-81-4975xAOH95 mL/min/1.73 m2 Low>=59Mansfield HospitalComment on above:Order Comment: Order added by Discern Expert.Performed By: #### [id number] #### Yen [facility] [address], [place] [address]Hibpgmq for Treatmenton 98-77-8645Dfnxyrl for Treatment [id number]#1.00TIFFLakeHealth TriPoint Medical CenterUS Abdomen, Limitedon 17-31-4288XJ Abdomen, LimitedExam Date/Time: 11/13/2023 08:00 EDT Reason [...] Johan Nava MD Transcribed by: ARAVIND Technologist: StephanieMansfield HospitalPhysician Orderon 89-50-1219Buzrghlrk Order [id number]#1.00TIFFNormalFisher Holy Cross HospitalCNOVon 89-08-3654DEYUTjqzzkQtrtzaelu Clinic ClevelandCNPNon 43-86-6776YJCS NormalSalem City HospitalvelandUA DIP, URINE (POC)on 95-45-0636RMGNIRLMV UA (POCT)NegativeNegativeOhiohealth O'Bleness HospitalCLARITY UA (POCT)ClearOhiohealth O'Bleness Hospital COLOR UA (POCT)YellowCleCleveland Clinic Hillcrest HospitalGLUCOSE UA (POCT)NegativeNegative mg/dL [facility] O'Bleness HospitalHemoglobin Ql (U)Trace-lysedAbnormalNegativeOhiohealth O'Bleness Hospital KETONE UA (POCT)NegativeNegative mg/dLOhiohealth O'Bleness HospitalLEUKOCYTES UA (POCT)Large AbnormalNegativeOhiohealth O'Bleness HospitalNITRITE UA (POCT)NegativeNegativeOhiohealth O'Bleness HospitalPH UA (POCT)6.04.5 - 8.0Ohio[facility] O'Bleness HospitalProtein Ql (U)NegativeNegative mg/dLHolzer HospitalPECIFIC GRAVITY UA (POCT)1.0101.005 - 1.030Ohiohealth O'Bleness HospitalUROBILINOGEN UA (POCT)0.2 E.U./dLNormal E.U./dLOhiohealth O'Bleness HospitalED Note-Physicianon 62-54-6900SS Note-PhysicianBasic Information Time Seen: Abilio PALMA, Nica [...] Constipation (K59.00: Constipation, unspecified) (more content not included)...[facility] CenterComment on above:Result Comment: Electronically Signed By: Nica Knox PA-C\.br\Date and Time Signed: 10/05/23 21:57 EST\.br\Electronically Co-Signed By: Koby Masterson DO.br\Date and Time Co-Signed: 10/06/23 00:54 ESTConsent for Treatmenton 10-06-2507Ebzuhts for [id number]#1.00TIFF [facility] Medical CenterDischarge Instructionson 29-26-7914Lcgwcpghp [id number]#1.00TIFFNormalMary Rutan Hospital Clinical Summaryon 60-30-8940VA Clinical Summary [place] [id number] ED Clinical Summary Person Information Name: HARJIT ASENCIO I Patricia[facility] Age: 73 Years : 1950 Sex: Female Language: Danish PCP: Aravind MCMAHON, Peggy Mcmillan Marital Status: [...] 10/05/2023 21:56:34 10/05/2023 21:56:34 10/05/2023 21:56:34 ADDRESS: [address] [place] [address] [address] [facility] [phone] PHYS DOC NOTES: MEDICAL INFORMATION: Prescriptions Given: Medications to Continue Taking That Have Changed [facility] [address], [address] [place], [place] [id number], [phone] START: carvedilol (carvedilol 3.125 mg Tab) 1 [...] 0. PATIENT EDUCATION INFORMATION: Instructions: Constipation, Adult, Fghk-ep-Lebm; Gastroesophageal Reflux Disease, Adult, Msro-ki-Avev; Abdominal Pain, Adult, Qafk-js-Uamn Follow up: With: Address: When: Johan HENRIQUEZ [address] [place] [phone] LeadPages (1) In 3 days 10/08/2023 With: Address: When: Peggy Nazario [address] [place] [address] LeadPages (1) In 3 days DIAGNOSIS: 1:ConstipationNormalFisher Hernandez Medical CenterED Patient Education Noteon 58-83-0877IM Patient Education NoteGastroenterology Constipation, Adult Constipation is [...] in fat and sugar, such as: ? Anguillan fries. ? Hamburgers. ? Cookies. ? Candy. ? Soda. ? Drink enough fluid to keep your pee (urine) pale yellow. General instructions ? Exercise regularly or as told by your doctor. Try to do 150 minutes of exercise each week. ? Go to the restroom when you feel like you need to poop. Do not hold it in. ? Take xunt-hww-vlyjjxu and prescription medicines only as told by [...] your pee (urine) pale yellow. ? Take jsat-kcs-fwbrqet and prescription medicines only as told by your doctor. These include any fiber supplements. This information is not intended to replace advice given to you by your health care provider. Make sure you discuss any questions you have with your health care provider. Document Revised: 06/17/2020 Document Reviewed: 06/17/2020 [employer] Patient Education ? 2022 [employer] Gastroesophageal Reflux Disease, Adult Gastroesophageal reflux [...] and onions. ? Hors (more content not included)...NormalMary Rutan Hospital Patient Summaryon 00-14-7011XD Patient Summary [address] [address] Patient Discharge Instructions Person Information Name: HARJIT ASENCIO I Age: 73 Years Arrival Date: 10/05/2023 17:54:10 Discharge Diagnosis: 1:Constipation Primary Care Physician: Peggy Nazario MD Provider Information Primary Provider: Koby Masterson DO [employer] Engineer:None The exam and treatment you received in the Emergency Department were for an urgent problem and are not intended as complete care. It is important that you follow up with a doctor, nurse practitioner,or physician?s bilingual administrative assistant for ongoing care. If your symptoms [...] Instructions: With: Address: When: Johan HENRIQUEZ [address] [place] [phone] LeadPages (1) In 3 days 10/08/2023 With: Address: When: Peggy Nazario [address] [place] [address] [employer]Pages (1) In 3 days In the event that this physician does not participate in your insurance network, please consult with your insurance company to find a nearby participating provider. Patient Education Materials: Constipation, Adult, Sbul-op-Eozs; Gastroesophageal Reflux Disease, Adult, Utdo-wp-Vqch; Abdominal Pain, Adult, Csfg-vx-Mbna A MESSAGE TO ALL PATIENTS REGARDING OPIOIDS PRESCRIPTION OPIOIDS: WHAT YOU NEED TO KNOW Prescription opioids can be used to help relieve hngghemm-mh-zmhuuz pain and are often prescribed following a [...] your community drug take- back program or [facility] centerReedsy mail-back program, or flush them down the toilet, following guidance from the Food and Drug Administration (www.fda.gov/Drugs/ResourcesForYou). ? Visit www.cdc.gov/drugoverdose to learn about the risks of opioids abuse and overdose. ? If (more content not included)...[facility] CenterCNPNon 97-44-0337KWIQAqzjfrTrojvumay Clinic ClevelandEchocardiographyon 09-27-2023 [id number]#1.00TIFFNormalMansfield HospitalOutside Cardiovascularon 36-94-9234Gqfndnl Cardiovascular [id number]#1.00TIFFNormAlexandria Hernandez [facility] [id number]#1.00TIFF [facility] Cardiovascular [id number]#1.00TIFFWili [facility]iera Hospital Operativeon 28-95-0303Fohxqtq Operative [id number]#1.00TIFFNoBlake Viera Hospital [id number]#1.00TIFFLalitha [facility]en [facility] Radiologyon 10-60-7084Fnofeyu Radiology [id number]#1.00TIFFWili [facility] [id number]#1.00TIFFNoalexander Yen Holy Cross HospitalCB panel Auto (Bld)on 12-50-0762Myxsvryxmbe distribution width (RBC) [Ratio]13.2 %Kzvuxa77.5-15.0[facility] Comment on above:Order Comment: Specimen Type: BLOOD SPECIMENOrdering Facility: [facility] Address:[address] [place] [address] Performed By: #### 34019-3 ####[facility] [id number] [place] [address] [place] Hematocrit (Bld) [Volume fraction]38.1 %Rzgmtd27.0-46.0[facility]ont[facility] CampusComment on above:Order Comment: Specimen Type: BLOOD SPECIMENOrdering Facility: [facility] Address:[address] [place], [place] [address]Performed By: #### 92267-0 ####[facility] [id number] [place] [address] [place] Hemoglobin (Bld) [Mass/Vol]12.2 g/hTMvrztl16.5-15.5COhioHealth Mansfield Hospital Comment on above:Order Comment: Specimen Type: BLOOD SPECIMENOrdering Facility: [facility] Address:[address] [place] [address] Performed By: #### 69068-0 ####[facility] [id number] [place] [address] [place] MCH (RBC) [Entitic mass]29.5 vmRljmwm73.0-34.0[facility] CampusComment on above:Order Comment: Specimen Type: BLOOD SPECIMENOrdering Facility: [facility] Address:[address] [place] [address] Performed By: #### 98169-0 ####[facility] [id number] [place] [address] [place] MCHC (RBC) [Mass/Vol]32.0 g/uMTdjtpc81.5-36.0[facility] CampusComment on above:Order Comment: Specimen Type: BLOOD SPECIMENOrdering Facility: [facility] Address:[address] [place] [address] Performed By: #### 95838-7 ####[facility] CENTERIA [id number] [place] [address] [place] MCV (RBC) [Entitic vol]92.0 sTWikved69.0-100.0[facility] CampusComment on above:Order Comment: Specimen Type: BLOOD SPECIMENOrdering Facility: [facility] Address:[address] [place] [address] Performed By: #### 21976-3 ####[facility] [id number] [place] [address] [place] Nucleated RBC (Bld) [#/Vol]10*3/uLNormal<0.01[facility] on above:Order Comment: Specimen Type: BLOOD SPECIMENOrdering Facility: [facility] Address:[address] [place] [address] Performed By: #### 55449-0 ####[facility] LABCLIA [id number] [place] [address] [place] Platelet mean volume (Bld) [Entitic vol]10.5 fLNormal9.0-12.7CRegency Hospital Company on above:Order Comment: Specimen Type: BLOOD SPECIMENOrdering Facility: [facility] Address:[address] [place], [place] [address]Performed By: #### 76101-2 ####[facility] LABCLIA [id number] [place] [address] [place] Platelets (Bld) [#/Vol]195 10*3/iOPdzsmn115-863ZoihoxivhTuscarawas Hospital on above:Order Comment: Specimen Type: BLOOD SPECIMENOrdering Facility: [facility] Address:[address] [place] [address] Performed By: #### 26464-3 ####[facility] LABCLIA [id number] [place] [address] [place] RBC (Bld) [#/Vol]4.14 10*6/uLNormal3.90-5.20[facility] on above:Order Comment: Specimen Type: BLOOD SPECIMENOrdering Facility: [facility] Address:[address] [place], [place] [address]Performed By: #### 24745-6 ####[facility] [id number] [place] [address] [place] AMERICAWBC (Bld) [#/Vol]6.03 10*3/uLNormal3.70-11.00[facility] on above:Order Comment: Specimen Type: BLOOD SPECIMENOrdering Facility: [facility] Address:[address] [place] [id number] By: #### 83558-7 ####[facility] LABCLIA [id number] [place] [id number] [place] AMERICACCF CBC PNL BLD AUTOon 09-26-2023 [facility] NRBC # BLD AUTO<0.01NINFRusk Rehabilitation Center PLATELET # BLD [id number] County Memorial HospitalCCF PMV BLD AUTO10.5 fL9.0 - 12.7 fLPike County Memorial HospitalCC WBC # BLD AUTO 6.03Pike County Memorial HospitalErythrocyte distribution width (RBC) [Ratio]13.2 %11.5 - 15.0 %[facility] HealthcareHematocrit (Bld) [Volume fraction]38.1 %36.0 - 46.0 %[facility] Memorial HospitalHemoglobin (Bld) [Mass/Vol]12.2 g/dL11.5 - 15.5 g/dLMoberly Regional Medical CenterH (RBC) [Entitic mass]29.5 pg26.0 - 34.0 pgMoberly Regional Medical CenterHC (RBC) [Mass/Vol] 32.0 g/dL30.5 - 36.0 g/dLMoberly Regional Medical CenterV (RBC) [Entitic vol]92.0 fL80.0 - 100.0 fLPike County Memorial HospitalRBC (Bld) [#/Vol]4.14 10*6/uL3.90 - 5.20 m/uLPike County Memorial HospitalSpecimen Type: BLOOD SPECIMEN Ordering Facility: [facility] Address: [address] [place] [address] Original Ordering Provider: ALEA FOSTERIN HealthcareCNOVon 59-51-3347GJYAHigrgbQvgnuignl Clinic ClevelandCNPTOUTREACHon 09-26-2023 CNPTOUTREACHNormalClevelAtrium Health PinevilleComprehensive metabolic 2000 panelon 44-81-8329Chpovwi [Mass/Vol]4.2 g/dLNormal3.9-4.9ClevelAtrium Health Pineville Comment on above:Order Comment: Specimen Type: BLOOD SPECIMENOrdering Facility: [facility] Address:[address] [place], [place] [address] [address] Performed By: #### 58073-4, 88362-3 ####[facility] LABCLIA [id number] [address] [address] [place] ALP [Catalytic activity/Vol]57 U/XAlgzxs13-769VdvrfwlxuTuscarawas Hospital on above:Order Comment: Specimen Type: BLOOD SPECIMENOrdering Facility: [facility] Address:[address] [place] [address] Performed By: #### 88616-3, 04013-1 ####[facility] LABCLIA [id number] [place] [id number] [place] ALT [Catalytic activity/Vol]36 U/LNormal7-38[facility] on above:Order Comment: Specimen Type: BLOOD SPECIMENOrdering Facility: [facility] Address:[address] [place], [place] [address]Performed By: #### 07454-0, 67493-8 ####[facility] [id number] [place] [id number] [place] AMERICAAnion gap [Moles/Vol] 10 mmol/LNormal9-18[facility] on above:Order Comment: Specimen Type: BLOOD SPECIMENOrdering Facility: [facility] Address:[address] [place], [place] [address]Performed By: #### 25045-2, 90049-6 ####[facility] LABCLIA [id number] [place] [id number] [place] AMERICAAST [Catalytic activity/Vol]29 U/RUtazqu32-96GvvpekresTuscarawas Hospital on above:Order Comment: Specimen Type: BLOOD SPECIMENOrdering Facility: [facility] Address:[address] [place], [place] [address]Performed By: #### 28200-7, 68775-1 ####[facility] [id number] [place] [id number] [place] AMERICABilirubin [Mass/Vol]0.6 mg/dLNormal0.2-1.3 [facility] on above:Order Comment: Specimen Type: BLOOD SPECIMENOrdering Facility: [facility] Address:[address] [place], [place] [address]Performed By: #### 01327-3, 80329-2 ####[facility] [id number] [place] [address] [place] AMERICACalcium [Mass/Vol]9.6 mg/dLNormal8.5-10.2CRegency Hospital Company on above:Order Comment: Specimen Type: BLOOD SPECIMENOrdering Facility: [facility] Address:[address] [place], [place] [address]Performed By: #### 77481-3, 62212-7 ####[facility] [id number] [place] [address] [place] AMERICAChloride [Moles/Vol]100 mmol/YUinyrf68-814SyfakhkvjSt. [facility] Comment on above:Order Comment: Specimen Type: BLOOD SPECIMENOrdering Facility: [facility] Address:[address] [place] [address] Performed By: #### 01302-2, 97381-6 ####[facility] [id number] [place] [address] [place] CO2 [Moles/Vol]29 mmol/TTifpuv87-04LosyftgeqTuscarawas Hospital on above: Order Comment: Specimen Type: BLOOD SPECIMENOrdering Facility: [facility] Address:[address] [place], [place] [address]Performed By: #### 97323- 6, 76076-4 ####[facility] [id number] [place] [address] [place] AMERICACreatinine [Mass/Vol] 0.82 mg/dLNormal0.58-0.96[facility] on above:Order Comment: Specimen Type: BLOOD SPECIMENOrdering Facility: [facility] Address:[address] [place], [place] [address]Performed By: #### 84390- 6, 35115-1 ####[facility] [id number] [facility] [place] [place] [address] [place] AMERICACreatinine and Glomerular filtration rate.predicted panel (S/P/Bld)75 mL/min/1.73m???Normal>=60 [facility] CampusComment on above:Order Comment: Specimen Type: BLOOD SPECIMENOrdering Facility: [facility] Address:[address] [place], [place] [address]Result Comment: Estimated Glomerular Filtration Rate (eGFR) is calculated using the 2020 CKD-EPI creatinine equation. This equation utilizes serum creatinine, sex, and age as parameters. The creatinine assay has traceable calibration to isotope dilution-mass spectrometry. Refer to KDIGO guidelines for clinical interpretation. In patients with unstable renal function, e.g. those with acute kidney injury, the eGFR may not accurately reflect actual GFR.Performed By: #### 62825-3, 02976-6 ####[facility] [id number] [address] AVENUEDANIEL FREEM[facility] [place] [address] [place] AMERICAGlucose [Mass/Vol]129 mg/kHUznb80-28YdczczyzpSt. Mary'[facility] Comment on above:Order Comment: Specimen Type: BLOOD SPECIMENOrdering Facility: [facility] Address:[address] [place], [place] [address]Result Comment: The [place] Diabetes Association (ADA) provides guidance for cutoff [...] Standards of Medical Care in Diabetes 2016, [place] [employer]. Diabetes Care. 2016.39(Suppl 1).Performed By: #### 42301-4, 01903-6 ####[facility] [id number] [place] [address] [place] AMERICAPotassium [Moles/Vol]4.3 mmol/LNormal3.7-5.1CRegency Hospital Company on above:Order Comment: Specimen Type: BLOOD SPECIMENOrdering Facility: [facility] Address:[address] [place], [place] [address]Performed By: #### 73832-4, 98925-6 ####[facility] [id number] [place] [address] [place] AMERICAProtein [Mass/Vol]6.4 g/dLNormal6.3-8.0[facility] on above:Order Comment: Specimen Type: BLOOD SPECIMENOrdering Facility: [facility] Address:[address] [place] [address] Performed By: #### 93111-4, 48063-2 ####[facility] [id number] [place] [address] [place] Sodium [Moles/Vol]139 mmol/XOaszqu948-617YhoqytqwhTuscarawas Hospital on above:Order Comment: Specimen Type: BLOOD SPECIMENOrdering Facility: [facility] Address:[address] [place], [place] [address]Performed By: #### 22550-7, 16354-2 ####[facility] [id number] [place] [address] [place] AMERICAUrea nitrogen [Mass/Vol]15 mg/dLNormal7-21[facility] on above:Order Comment: Specimen Type: BLOOD SPECIMENOrdering Facility: [facility] Address:[address] [place], [place] [address]Performed By: #### 26510- 6, 96130-2 ####[facility] [id number] [place] [address] [place] MKJBWVMSAY13nl 41-62-7383SBS80 NormalSalem City HospitalvelandNT-proBNP SerPl-mCncon 32-26-2924Vqqufiwrhhj peptide.B prohormone N-Terminal [Mass/Vol]2047 pg/mLHigh<450Salem City HospitalvelandComment on above:Order Comment: Specimen Type: BLOOD SPECIMENOrdering Facility: [facility] Address:[address] [place], [place] [address]Performed By: #### 28420-8, 75521-2 ####[facility] LABIA [id number] [place] [address] [place] AMERICAURINALYSIS, REFLEX MICROSCOPICon 66-11-8648Ubiioyxy LM.HPF (Urine sed) [#/Area]FewAbnormalNone Seen /HPFOhiohealth O'Bleness HospitalBilirubin Ql (U)Negative NegativeCaneadea ClinicClarity (Unsp spec)CloudyAbnormalClearCleveland Clinic Color (U)YellowYellowCleCleveland Clinic Hillcrest HospitalEpithelial cells LM.HPF (Urine sed) [#/Area]ModerateCleveland ClinicEpithelial cells LM.HPF (Urine sed) [#/Area]Few AbnormalNone Seen /HPFOhiohealth O'Bleness HospitalGlucose Test strip (U) [Mass/Vol]Negative Trace, NegativeCaneadea ClinicHemoglobin Ql (U)1+AbnormalNegative, Trace [facility]len[facility] HospitalKetones Ql (U)NegativeNegative, TraceOhiohealth O'Bleness HospitalLeukocyte esterase Test strip Ql (U)500 Ghislaine/uLAbnormalNegative, 25 Ghislaine/uLCleveland Clinic Nitrite Ql (U)NegativeNegativeCaneadea ClinicpH (U)6.0 [pH]5.0 - 8.0Cleveland ClinicProtein (U) [Mass/Vol]NegativeTrace, NegativeCaneadea ClinicRBC LM.HPF (Urine sed) [#/Area]3-5 /HPFAbnormal0-3 /HPFCleholzer medical center – jackson ClinicSpecific gravity (U) [Rel density]1.0131.005 - 1.030Cleholzer medical center – jackson ClinicUrobilinogen Ql (U)NormalNormal [facility] O'Bleness HospitalWBC LM.HPF (Urine sed) [#/Area]/[HPF]Abnormal0-5 /HPFOhiohealth O'Bleness HospitalBacteria LM.HPF (Urine sed) [#/Area]FewAbnormalNone SeenTuscarawas Hospital on above:Order Comment: Specimen Type: URINE SPECIMENOrdering Facility: [facility] Address:[address] [place], [place] [address]Performed By: #### [id number] ####[facility] [id number] [place] [address] [place] Bilirubin Ql (U)NegativeNormalNegativeTuscarawas Hospital on above:Order Comment: Specimen Type: URINE SPECIMENOrdering Facility: [facility] Address:[address] [place], [place] [address]Performed By: #### [id number] ####[facility]CL[facility] [id number] [place] [address] [place] AMERICAClarity (Unsp spec) CloudyAbnormalClearCRegency Hospital Company on above:Order Comment: Specimen Type: URINE SPECIMENOrdering Facility: [facility] Address:[address] [place], [place] [address]Performed By: #### [id number] ####[facility] [id number] [place] [address] [place] AMERICAColor (U)YellowNormalYellow [facility] on above:Order Comment: Specimen Type: URINE SPECIMENOrdering Facility: [facility] Address:[address] [place], [place] [address]Performed By: #### [id number] ####[facility]CL[facility] [id number] [place] [address] [place] AMERICAEpithelial cells LM.HPF (Urine sed) [#/Area]ModerateNormalCRegency Hospital Company on above:Order Comment: Specimen Type: URINE SPECIMENOrdering Facility: [facility] Address:[address] [place], [place] [address]Result Comment: FewPerformed By: #### [id number] ####[facility]CLIA [id number] [place] [address] [place] AMERICAGlucose Test strip (U) [Mass/Vol]NegativeNormal Trace, NegativeTuscarawas Hospital on above:Order Comment: Specimen Type: URINE SPECIMENOrdering Facility: [facility] Address:[address] [place], [place] [address]Performed By: #### [id number] ####[facility]CL[facility] [id number] [place] [address] [place] AMERICAHemoglobin Ql (U)1+Abnormal Negative, TraceTuscarawas Hospital on above:Order Comment: Specimen Type: URINE SPECIMENOrdering Facility: [facility] Address:[address] [place], [place] [address]Performed By: #### [id number] ####[facility]CLIA [id number] [place] [address] [place] AMERICAKetones Ql (U)NegativeNormal Negative, TraceTuscarawas Hospital on above:Order Comment: Specimen Type: URINE SPECIMENOrdering Facility: [facility] Address:[address] [place], [place] [address]Performed By: #### [id number] ####[facility]CL[facility] [id number] [place] [address] [place] AMERICALeukocyte esterase Test strip Ql (U)500 Ghislaine/uLAbnormalNegative, 25 Ghislaine/uLTuscarawas Hospital on above:Order Comment: Specimen Type: URINE SPECIMENOrdering Facility: [facility] Address:[address] [place], [place] [address]Performed By: #### [id number] ####[facility]CL[facility] [id number] [place] [address] [place] AMERICANitrite Ql (U)Negative NormalNegativeTuscarawas Hospital on above:Order Comment: Specimen Type: URINE SPECIMENOrdering Facility: [facility] Address:[address] [place], [place] [address]Performed By: #### [id number] ####[facility] LABIA [id number] [place] [address] [place] AMERICApH (U)6.0 [pH]Normal5.0-8.0[facility] Comment on above:Order Comment: Specimen Type: URINE SPECIMENOrdering Facility: [facility] Address:[address] [place] [address] Performed By: #### [id number] ####[facility] LABIA [id number] [place] [address] [place] Protein (U) [Mass/Vol]NegativeNormalTrace, NegativeCleSycamore Medical Center Comment on above:Order Comment: Specimen Type: URINE SPECIMENOrdering Facility: [facility] Address:[address] [place] [address] Performed By: #### [id number] ####[facility] LABIA [id number] [place] [address] [place] RBC LM.HPF (Urine sed) [#/Area]3-5 /HPFAbnormal0-3 /HPFSt. Mary'S Medical Center, [facility]ont[facility] CampusComment on above:Order Comment: Specimen Type: URINE SPECIMENOrdering Facility: [facility] Address:[address] [place], [place] [address]Performed By: #### [id number] ####[facility] LABIA [id number] [place] [address] [place] Specific gravity (U) [Rel density]1.403Kdgyno1.005-1.030St[facility]ont[facility] CampusComment on above:Order Comment: Specimen Type: URINE SPECIMENOrdering Facility: [facility] Address:[address] [place], [place] [address]Performed By: #### [id number] ####[facility] LABIA [id number] [place] [address] [place] Urobilinogen Ql (U)NormalNormalNormalCOhioHealth Mansfield HospitalComment on above: Order Comment: Specimen Type: URINE SPECIMENOrdering Facility: [facility] Address:[address] [place], [place] [address]Performed By: #### [id number] ####[facility]CLIA [id number] [place] [address] [place] AMERICAWBC LM.HPF (Urine sed) [#/Area]/[HPF]Abnormal0-5 /HPFSt. Mary'S Medical Center, Ironton CampusComment on above:Order Comment: Specimen Type: URINE SPECIMENOrdering Facility: [facility] Address:[address] [place], [place] [address]Performed By: #### [id number] ####[facility]CLIA [id number] [place] [address] [place] AMERICACNPNon 94-27-1981LWOF NormalSt. Mary'S Medical Center, Ironton CampusBMPon 26-73-5684Dtuvk gap [Moles/Vol]9 mmol/L Normal6-16Mansfield HospitalComment on above:Performed By: #### [id number], 31396322, 2950875, 0223299, 1609649, 9498874 #### [facility] [address] [place], [place] [address]GXN/Creat Ratio24 No RtjdxEora10-40RrqnyxMansfield Hospital Comment on above:Performed By: #### 1632162, 92191126, 7611189, 4369894, 1778321, 8547822 #### [facility] [address], [place] [address]Ywqgiad [Mass/Vol]9.1 mg/dLNormal8.9-11.1Fisher Holy Cross HospitalComment on above:Performed By: #### 5277491, 18133778, 3349104, 8764439, 9621026, 3990510 #### [facility] [address], [place] [address]Eklozbli [Moles/Vol]105 mmol/PPproix714-183LsgdrrMansfield HospitalComment on above:Performed By: #### 8484773, 08317111, 6382431, 3394038, 8545215, 3705664 #### [facility] [address], [place] [address]AQ2 [Moles/Vol]28 mmol/ONsdznd32-16OdvjgbMansfield Hospital Comment on above:Performed By: #### 6097502, 83207029, 2431933, 5491507, 4010304, 7510571 #### [facility] [address], [place] [address]Talsdjtkau [Mass/Vol]0.7 mg/dLNormal0.5-1.3FPremier Health Atrium Medical CenterComment on above:Performed By: #### 0402688, 50900664, 7999129, 5726827, 5481059, 7674831 #### [facility] [address], [place] [address]Cojtfnq [Mass/Vol]83 mg/eGSmxlzn65-644OadfdzMansfield HospitalComment on above:Performed By: #### 8980761, 07693497, 1305746, 5754155, 6966360, 8901217 #### [facility] [address] [place] [address]Zprnkfqnq [Moles/Vol]4.0 mmol/LNormal3.5-5.3FPremier Health Atrium Medical CenterComment on above:Performed By: #### 7564485, 56489048, 7131863, 4686151, 6996684, 4770535 #### [facility] [address], [place] [address]Holgni [Moles/Vol]138 mmol/DSftqrc595-035YfdsodMansfield HospitalComment on above:Performed By: #### 7932961, 23890050, 4147614, 2749389, 8744337, 1905577 #### [facility] [address] [place], [place] [address]Ceqy nitrogen [Mass/Vol]17 mg/dLNormal5-21Mansfield HospitalComment on above:Performed By: #### 2316562, 14524083, 9043994, 9519535, 9356243, 5923423 #### [facility] [address], [place] [address]YJR w/ Auto Diffon 64-03-3107Tddlhzjv Absolute0.1 E9/LNormal 0.0-0.2FPremier Health Atrium Medical CenterComment on above:Performed By: #### 0793634, 92358994, 4800905, 2702010, 4670188, 8444299 #### [facility] [address], [place] [address]Tnimqgouq/100 WBC (Bld)0.9 %Normal0.0-2.0Mansfield HospitalComment on above:Performed By: #### 3768095, 16871667, 3452313, 9676485, 1576773, 5811809 #### [facility] [address] [place] [address]Siw Absolute0.0 E9/LNormal0.0-0.5FPremier Health Atrium Medical Center Comment on above:Performed By: #### 7843649, 77596440, 0289562, 1819558, 7764478, 5251058 #### [facility] [address] [place] [address]Pmewdcamsea/100 WBC (Bld)0.7 %Normal0.0-8.0Mansfield HospitalComment on above:Performed By: #### 5273470, 10868776, 9804874, 5236263, 7177172, 6234565 #### [facility] [address], [place] [address]Isfejsufvkp distribution width (RBC) [Ratio]14.1 %Normal 10.9-14.2FPremier Health Atrium Medical CenterComment on above:Performed By: #### 3025516, 12628577, 3727168, 2121076, 9327191, 9929516 #### [facility] [address], [place] [address]Bvtuyptiaq (Bld) [Volume fraction]36.0 %Kduxkl63.0-46.0Mansfield HospitalComment on above:Performed By: #### 9050089, 50882376, 6375024, 4188882, 9871644, 7786027 #### [facility] [address], [place] [address]Kpqhjeisxr (Bld) [Mass/Vol]12.2 g/gIWpvlxz51.0-16.0Mansfield HospitalComment on above:Performed By: #### 9199773, 13683352, 4235331, 8993615, 0096652, 7376511 #### [facility] [address] [place] [address]Mkezn Absolute2.1 E9/LNormal1.0-4.0[facility] Comment on above:Performed By: #### 6035998, 01399218, 1647381, 4353293, 0376516, 6261305 #### [facility] [address] [place] [address]Sndhnmvgfmh/100 WBC (Bld)31.6 %Ntkkuz80.0-50.0Mansfield HospitalComment on above:Performed By: #### 5234836, 78885769, 3755275, 7987606, 9129859, 0065158 #### [facility] [address], [place] [address]KVD (RBC) [Entitic mass]30.0 nfHasihw92.0-34.0Mansfield HospitalComment on above:Performed By: #### 8274301, 58904661, 6099275, 1492663, 5107284, 0745113 #### [facility] [address], [place] [address]CBNP (RBC) [Mass/Vol]34.1 g/vAIeajfo88.4-36.0M[facility]field HospitalComment on above:Performed By: #### 5970562, 10961419, 9775961, 5500593, 7647028, 9542071 #### [facility] [address] [place] [address]SPV (RBC) [Entitic vol]88.0 bYRffyqe50.0-100.0M[facility]field HospitalComment on above:Performed By: #### 2766868, 87023496, 3979823, 9469915, 5256981, 7912558 #### [facility] [address] [place] [address]Lcsl Absolute0.6 E9/LNormal0.2-1.0[facility] Comment on above:Performed By: #### 7603603, 51441556, 7859245, 0775059, 1528455, 6647334 #### [facility] [address] [place] [address]Thnabdnvz/100 WBC (Bld)9.5 %Normal4.0-14.0M[facility]field HospitalComment on above:Performed By: #### 7357629, 19846635, 1968831, 0201631, 0312009, 9027141 #### [facility] [address] [place] [address]Kcmpcp Absolute3.8 E9/LNormal2.0-7.5FPremier Health Atrium Medical Center Comment on above:Performed By: #### 8038648, 65908159, 0471200, 7335569, 9881904, 9764231 #### [facility] [address], [place] [address]Kmfeit Auto57.3 %Ttzfqg23.0-75.0[facility] Comment on above:Performed By: #### 2448005, 97718666, 6996075, 8196067, 2350268, 8745170 #### [facility] [address] [place] [address]Yqvzvnbx918.0 E9/NJcshkv187.0-500.0[facility] Comment on above:Performed By: #### 8802995, 82034071, 0605131, 0361564, 0228000, 7973579 #### [facility] [address], [place] [address]Uelcpakj mean volume (Bld) [Entitic vol]8.0 fLNormal6.4-10.8 [facility] HospitalComment on above:Performed By: #### 0718979, 67396278, 7577662, 7815471, 4139546, 9127606 #### [facility] [address], [place] [address]HXP4.1 E12/LLow4.3-5.9Mansfield HospitalComment on above:Performed By: #### 5699397, 25143978, 4153586, 7193699, 8929029, 3915097 #### [facility] [address] [place] [address]WCW0.6 E9/LNormal4.0-11.0Mansfield HospitalComment on above:Performed By: #### 1569357, 69578407, 9193913, 2580078, 2482988, 5788358 #### [facility] [address] [place] [address]KFQIRBSRDUnhhehc By: SYSTEM SYSTEM on 86-10-9146Rhynh gap [Moles/Vol]9 mmol/LNormal6 - 16 mEq/LRemisol ChemCalcium [Mass/Vol]9.1 mg/dL Normal8.9 - 11.1 mg/dLRemisol ChemChloride [Moles/Vol]105 mmol/PGexjrk132 - 111 mmol/LRemisol ChemCO2 [Moles/Vol]28 mmol/HKbrbvf76 - 31 mmol/LRemisol Chem Creatinine [Mass/Vol]0.7 mg/dLNormal0.5 - 1.3 mg/dLRemisol StomlVVP65 mL/min/1.73 z5Kwztwr>=59mL/min/1.73 l2Jeuqfkg ChemGlucose [Mass/Vol]83 mg/dL Zwejtw94 - 199 mg/dLRemisol ChemPotassium [Moles/Vol]4.0 mmol/LNormal3.5 - 5.3 mmol/LRemisol ChemSodium [Moles/Vol]138 mmol/CLjokql635 - 145 mmol/LRemisol Chem Wlxrotuk32.70 pg/bDLtnpma71.10 - 27.10 pg/mLRemisol ChemComment on above: Interpretive Data: The 95% CI (Confidence Interval) PPV (Positive Predictive Value) for myocardial infarction in females is 38 pg/mL, in males 51 pg/mL. The results should be used in conjunction withclinical conditions of myocardial infarction. (Access High Sensitivity Troponin I Instructions For Use, Marlys Ari[place], March 2018)Urea nitrogen [Mass/Vol]17 mg/dLNormal5 - 21 mg/dLRemisol ChemUrea nitrogen/Creatinine [Mass ratio]24 mg/csUcwp71 - 20Remisol ChemCHEMISTRYOrdered By: Karlos Barclay on 64-16-5424Ftndcvm [Mass/Vol]79 mg/aAQsxbrb57 - 99 mg/dLHILLCREST HOSPITAL [facility]OUTH POC SubsectionComment on above:Result Comment: Notified RN/MDPOC Device SN [id number] 1Invalid Interpretation CodeHILLCREST HOSPITAL SOUTH POC SubsectionPOC User [id number] 1Invalid Interpretation [facility] POC SubsectionPOC UsernameMURRAY, EMILYInvalid Interpretation [facility] POC SubsectionCNPNon 45-29-4667JFUTFwdmjqVunulonur Clinic [facility] – jacksonCOAGULATIONOrdered By: Maryan Frost on 03-69-7814yNEU Coag (PPP) [Time]38.2 sHigh25.1 - 36.5 second(s)[facility] Auto CoagComment on above: Interpretive Data: Parameter [...] the same coagulation reagent and instrumentation as [facility]. Currently there are no coagulation studies available worldwide for children to 14 days, andno normal ranges. Heparin therapeutic range (represented by Anti-Factor Xa activity of 0.2 - 0.4 U/mL) corresponds to PTT of 56.6 - 109.0 sec.INR Coag (PPP) [Relative time]1.4 {INR}Invalid Interpretation CodeHILLCREST HOSPITAL SOUTH Auto CoagComment on above:Interpretive Data: INR results are specifically intended to assess patients stabilized on long-term Anticoagulation therapy suggested INR s Less Intensive Anticoagulation 2.0 3.0 Conventional Range 3.0 4.5PT Coag (PPP) [Time]16.4 sHigh9.4 - 12.5 second(s)[facility] Auto CoagComment on above:Interpretive Data: 15 days [...] the same coagulation reagent and instrumentation as [facility]. Currently there are no coagulation studies available worldwide for children to 14 days, andno normal ranges.Capillary Glucose POCon 97-28-3553Parakct [Mass/Vol]79 mg/dLNormal 55-99M[facility]field HospitalComment on above:Result Comment: Notified RN/ Performed By: #### [id number] ####[facility] [address] [place], [place] [address]Nsmtevn for Treatmenton 19-98-5438Bfafoua for [id number]#1.00TIFFNormalMansfield HospitalDischarge Instructionson 32-50-2710Wpqkofzrx Instructions [id number]#1.00TIFFNormalFisher [facility] Clinical Summaryon 55-08-2639GM Clinical Summary [place] [id number] ED Clinical Summary Person Information Name: HARJIT ASENCIO I [place] Age: 73 Years : 1950 Sex: Female Language: Danish PCP: Peggy Nazario MD Marital Status: Visit [...] 09/17/2023 06:16:25 09/17/2023 06:16:25 09/17/2023 06:16:25 ADDRESS: [address] [place] [id number] PHYS DOC NOTES: MEDICAL INFORMATION: Prescriptions Given: [...] Follow up: With: Address: When: [place] [address] [employer] (1) In 3 days DIAGNOSIS: Acid reflux; Medication reactionNoResearch Medical Center Medical CenterED Note-Physicianon 75-14-6425BQ Note-PhysicianBasic Information Time Seen: Parveen Ayers DO [...] and Complexity of Problems Differential Diagnosis: [] [facility] Data External documents reviewed: N/A My [...] Information Peggy Nazario In 3 days [address] [place] [address] Business (1) Additional Instructions: Patient Education Drug [...] of urethra (02/01/2019), C (more content not included)...[facility] Comment on above:Result Comment: Electronically Signed By: Parveen Ayers DO\.br\Date and Time Signed: 09/17/23 06:06 SAURAV Patient Education Noteon [id number] Patient Education NoteGastroenterology Heartburn Heartburn is a [...] vinegar, hot sauces, and barbecue sauce. ? [place]aines fruit juices and citrus fruits, such as oranges, ronald, and limes. ? Tomato-based foods, such as red sauce, chili, salsa, and pizza with red sauce. ? Fried and fatty foods, such as donuts, emirati fries, potato chips, and high- fat dressings. [...] askyour health care provider. Medicines ? Take vion-ijz-xwhscyt and prescription medicines only as told by [...] by your health care provider. ? Take lsjw-grq-rwqbxme and prescription medicines only as told by [...] provider. Document Revised: 02/03/2021 Document Reviewed: 02/03/2021 HumanAPI Patient Education ? 2022 [employer]. Pharmacology Drug Allergy A drug allergy happens when the body's disease-fighting system (immune system) reacts badly to a medicine. Drug allergies range from mild to severe. A drug allergy is not the same as a medicine side effect, which is a known possible reaction to the drug. A drug allergy is a (more content not included)...Normal [facility] Patient Summaryon [id number] Patient Summary [address] [address] Patient Discharge Instructions Person Information Name: HARJIT ASENCIO I Age: 73 Years Arrival Date: 09/17/2023 04:55:16 Discharge Diagnosis: Acid reflux; Medication reaction Primary Care Physician: Peggy Nazario MD Provider Information Primary Provider: Parveen Ayers DO [employer] Engineer:Yael The exam and treatment you received in the Emergency Department were for an urgent problem and are not intended as complete care. It is important that you follow up with a doctor, nurse practitioner,or physician?s bilingual administrative assistant for ongoing care. If your symptoms [...] Instructions: With: Address: When: [place] [address] Business (1) In 3 days In the event that this physician does not participate in your insurance network, please consult with your insurance company to find a nearby participating provider. Patient Education Materials: Drug Allergy; Heartburn A MESSAGE TO ALL PATIENTS REGARDING OPIOIDS PRESCRIPTION OPIOIDS: WHAT YOU NEED TO KNOW Prescription opioids can be used to help relieve qxoxsqrb-ql-qzcmlt pain and are often prescribed following a [...] be struggling with addiction, tell your health residential care officer and ask for guidance or call [facility]?S National Helpline at [phone]-[phone]. p Source: [place] Department of Health and (more content not included)...NormalMansfield HospitalHEMATOLOGYOrdered By: SYSTEM SYSTEM on 92-11-6477Ivxiippk Absolute0.1 E9/LNormal0.0 - 0.2 E9/LRemisol HemeBasophils/100 WBC (Bld)0.9 % Normal0.0 - 2.0 %Remisol HemeEos Absolute0.0 E9/LNormal0.0 - 0.5 E9/LRemisol HemeEosinophils/100 WBC (Bld)0.7 %Normal0.0 - 8.0 %Remisol HemeErythrocyte distribution width (RBC) [Ratio]14.1 %Currym58.9 - 14.2 %Remisol HemeHematocrit (Bld) [Volume fraction]36.0 %Lzagny52.0 - 46.0 %Remisol HemeHemoglobin (Bld) [Mass/Vol]12.2 g/wWWlsekj03.0 - 16.0 gm/dLRemisol HemeLymph Absolute2.1 E9/L Normal1.0 - 4.0 E9/LRemisol HemeLymphocytes/100 WBC (Bld)31.6 %Fdmsvc95.0 - 50.0 %Remisol HemeMCH (RBC) [Entitic mass]30.0 heLleocy07.0 - 34.0 pgRemisol Heme MCHC (RBC) [Mass/Vol]34.1 g/hOYysqmx29.4 - 36.0 gm/dLRemisol HemeMCV (RBC) [Entitic vol]88.0 jXWrmnpx46.0 - 100.0 fLRemisol HemeMono Absolute0.6 E9/LNormal 0.2 - 1.0 E9/LRemisol HemeMonocytes/100 WBC (Bld)9.5 %Normal4.0 - 14.0 %Remisol HemeNeutro Absolute3.8 E9/LNormal2.0 - 7.5 E9/LRemisol HemeNeutro Auto57.3 % Qtssil96.0 - 75.0 %Remisol XqrrZvjutftd453.0 E9/IWrqnqh281.0 - 500.0 E9/LRemisol HemePlatelet mean volume (Bld) [Entitic vol]8.0 fLNormal6.4 - 10.8 fLRemisol HemeRBC4.1 E12/LLow4.3 - 5.9 E12/LRemisol HemeWBC6.6 E9/LNormal4.0 - 11.0 E9/L Remisol HemeMonitor Recordon 53-38-7644Nunebng Record [id number]#1.00TIFFNormalMansfield HospitalPT & PTTon 36-65-3335hZBB Coag (PPP) [Time]38.2 second(s)High25.1-36.5 [facility] HospitalComment on above:Result Comment: Parameter 15 days [...] the same coagulation reagent and instrumentation as [facility]. Currently there are no coagulation studies available worldwide for children to 14 days, andno normal ranges. Heparin therapeutic range (represented by Anti-Factor Xa activity of 0.2 - 0.4 U/mL) corresponds to PTT of 56.6 - 109.0 sec.Performed By: #### 9445672, 94548823, 5892983, 7583150, 8014516, 6999406 #### [facility] [address] [place], [place] [address]IFV Coag (PPP) [Relative time]1.4 {INR}Invalid Interpretation [facility] CenterComment on above:Result Comment: INR results are specifically intended to assess patients stabilized on long-term Anticoagulation therapy suggested INR?s ?Less Intensive Anticoagulation? 2.0 ? 3.0 Conventional Range 3.0 ? 4.5Performed By: #### 4433000, 06875260, 9823076, 9356883, 6077837, 2053562 #### [facility] [address], [place] [address]PD Coag (PPP) [Time]16.4 second(s)High9.4-12.5FPremier Health Atrium Medical CenterComment on above:Result Comment: 15 days - 4 [...] the same coagulation reagent and instrumentation as [facility]. Currently there are no coagulation studies available worldwide for children to 14 days, andno normal ranges.Performed By: #### 6637409, 08248238, 3326614, 1215743, 7804189, 6491158 #### [facility] [address], [place] [address]Gnmlilqt 0 Hr.on 71-83-3555Nwomqekj69.70 pg/eNXknjhz15.10-27.10 [facility] HospitalComment on above:Result Comment: The 95% CI (Confidence Interval) PPV (Positive Predictive Value) for myocardial infarction in females is 38 pg/mL, in males 51 pg/mL. The results should be used in conjunction with clinical conditions of myocardial infarction. (Access High Sensitivity Troponin I Instructions For Use, [place], March 2018)Performed By: #### 5000374, 01213726, 8838698, 9644842, 9261491, 0532520 #### [facility] [address], [place] [address]TC Chest Single Viewon [id number] Chest Single ViewExam Date/Time: 09/17/2023 05:39 EST [...] Ka,r in mGy = na DAP = naNormalMansfield HospitaleGFRon 97-02-0033qKQW95 mL/min/1.73 m2 Normal>=59Mansfield HospitalComment on above:Order Comment: Order added by Discern Expert.Performed By: #### 0075255, 92611849, 5602246, 1525770, 1881098, 1330687 #### [facility] [address], [place] [address]UPOdq 00-28-2913Axqam gap [Moles/Vol]12 mmol/LNormal6-16M[facility]field HospitalComment on above:Performed By: #### 5024868, 97054275, 1873538, 0079642, 9519420, 4511602 #### [facility] [address], [place] [address]ESB/Creat Ratio27 No ZgbzeKzvi11-46RtvjdgMansfield Hospital Comment on above:Performed By: #### 9213201, 27754948, 4332506, 7670314, 6617546, 8971161 #### [facility] [address], [place] [address]Otcmkqz [Mass/Vol]9.5 mg/dLNormal8.9-11.1FPremier Health Atrium Medical CenterComment on above:Performed By: #### 9809967, 50952856, 9788915, 0263268, 7822855, 0903621 #### [facility] [address], [place] [address]Ozjkoqum [Moles/Vol]101 mmol/DVisije106-505LacafuMansfield HospitalComment on above:Performed By: #### 1326149, 32587304, 5934501, 8944261, 5873678, 8753574 #### [facility] [address], [place] [address]UZ1 [Moles/Vol]27 mmol/WNeoeax27-84SmniobMansfield Hospital Comment on above:Performed By: #### 5299527, 80818201, 3457262, 9095494, 4646621, 4199114 #### [facility] [address] [place] [address] 559[address]Pjhgdrytcp [Mass/Vol]0.9 mg/dLNormal0.5-1.3FPremier Health Atrium Medical CenterComment on above:Performed By: #### 1868874, 65357416, 3624278, 9106876, 3391080, 3865591 #### [facility] [address] [place] [address] 85[address]Bmdxkuw [Mass/Vol]87 mg/sCOjjznz54-049SapjhfMansfield HospitalComment on above:Performed By: #### 7094374, 39662137, 2996390, 9150632, 7575702, 7609157 #### [facility] [address] [place] [address]Whxoeszuz [Moles/Vol]4.9 mmol/LNormal3.5-5.3FPremier Health Atrium Medical CenterComment on above:Performed By: #### 8495317, 48373658, 5888884, 7111450, 3371072, 7903722 #### [facility] [address], [place] [address]Jrawxi [Moles/Vol]135 mmol/MApponu311-865IhlrlbMansfield HospitalComment on above:Performed By: #### 8825869, 73744090, 8546379, 9072682, 2289967, 8966613 #### [facility] [address] [place] [address]79[address]Mwht nitrogen [Mass/Vol]24 mg/dLHigh5-21M[facility]field HospitalComment on above:Performed By: #### 3489992, 05535909, 9759218, 1991378, 2986829, 7685977 #### [facility] [address] [place] [address]UPR w/ Auto Diffon 04-66-8845Bihslonh Absolute0.1 E9/LNormal 0.0-0.2FPremier Health Atrium Medical CenterComment on above:Performed By: #### 3072724, 33467261, 4210693, 1645631, 7166569, 5603222 #### [facility] [address] [place] [address] 881[address]Tstfdqqra/100 WBC (Bld)1.1 %Normal0.0-2.0M[facility] HospitalComment on above:Performed By: #### 1110651, 64566507, 2233292, 0112155, 4014079, 1689018 #### [facility] [address] [place] [address]Lgs Absolute0.1 E9/LNormal0.0-0.5FPremier Health Atrium Medical Center Comment on above:Performed By: #### 3548982, 70105478, 6388531, 1280868, 6587503, 8769435 #### [facility] [address] [place] [address] 56[address]Nsvtlaxbcsp/100 WBC (Bld)1.2 %Normal0.0-8.0M[facility] HospitalComment on above:Performed By: #### 6230515, 58580260, 1270559, 3466083, 2327906, 1038137 #### [facility] [address] [place] [address]Squklvbmjpw distribution width (RBC) [Ratio]13.7 %Normal 10.9-14.2FPremier Health Atrium Medical CenterComment on above:Performed By: #### 1326120, 37303789, 3416178, 9071098, 7507294, 4012712 #### [facility] [address] [place] [address] 10267Lthvzxflht (Bld) [Volume fraction]41.0 %Xvyjfp14.0-46.0M[facility] HospitalComment on above:Performed By: #### 3055551, 18492589, 4951066, 2539666, 5077452, 7067969 #### [facility] [address], [place] [address]Phzzxyeoij (Bld) [Mass/Vol]13.4 g/dFWsmsel38.0-16.0M[facility] HospitalComment on above:Performed By: #### 0126504, 93276138, 4083376, 5506645, 3404859, 8725942 #### [facility] [address] [place] [address]Cfwmm Absolute1.9 E9/LNormal1.0-4.0[facility] Comment on above:Performed By: #### 5045910, 83393757, 9478709, 5110868, 3760162, 0908003 #### [facility] [address] [place] [address] 534[address]Mdafvnckklp/100 WBC (Bld)25.9 %Temgbx21.0-50.0M[facility] HospitalComment on above:Performed By: #### 8881460, 09281110, 8161580, 3394668, 8726638, 8647673 #### [facility] [address] [place] [address] 49[address]FSY (RBC) [Entitic mass]29.5 jmUsksyx05.0-34.0M[facility] HospitalComment on above:Performed By: #### 9607325, 93087125, 6180109, 9631702, 4691037, 6489467 #### [facility] [address] [place] [address] 759[address]CGMV (RBC) [Mass/Vol]32.9 g/tVTxevjg45.4-36.0M[facility] HospitalComment on above:Performed By: #### 3270692, 74027729, 9463577, 1240084, 9169776, 3820721 #### [facility] [address] [place] [address] 98007RHM (RBC) [Entitic vol]89.6 jABlgswh57.0-100.0M[facility] HospitalComment on above:Performed By: #### 6333890, 35724608, 9155371, 0115892, 5243081, 6105627 #### [facility] [address] [place] [address]Qxyn Absolute0.6 E9/LNormal0.2-1.0[facility] Comment on above:Performed By: #### 1099490, 38043017, 3241862, 0426731, 3651948, 9980897 #### [facility] [address] [place] [address] 32610Zllyrhyfv/100 WBC (Bld)8.0 %Normal4.0-14.0M[facility] HospitalComment on above:Performed By: #### 0809503, 47359547, 0880686, 0368844, 5589834, 7517427 #### [facility] [address] [place] [address]89[address]Wyuyap Absolute4.7 E9/LNormal2.0-7.5FPremier Health Atrium Medical Center Comment on above:Performed By: #### 8078589, 25773793, 7386692, 5335245, 5980092, 1565908 #### [facility] [address] [place] [address]Btmpfp Auto63.8 %Tmijwv86.0-75.0[facility] Comment on above:Performed By: #### 2761067, 66293165, 8501758, 5003967, 8577555, 0203184 #### [facility] [address] [place] [address] 013[address]Ogpdrezh077.0 E9/UJnehru968.0-500.0[facility] Comment on above:Performed By: #### 1810003, 96326381, 4997857, 2647665, 7822722, 4657827 #### [facility] [address], [place] [address]Dblwvrxp mean volume (Bld) [Entitic vol]8.2 fLNormal6.4-10.8 [facility] HospitalComment on above:Performed By: #### 7551433, 12634897, 8988383, 6237463, 9044039, 3083550 #### [facility] [address], [place] [address]CSV9.6 E12/LNormal4.3-5.9M[facility] HospitalComment on above:Performed By: #### 7148737, 94150205, 4656293, 6249351, 5946210, 2785811 #### [facility] [address], [place] [address]TLD5.4 E9/LNormal4.0-11.0M[facility] HospitalComment on above:Performed By: #### 6724471, 66965055, 9019859, 7847837, 2719377, 9507062 #### [facility] [address], [place] [address]EYRPSLKFSAgezppc By: Maryan Frost on 09-12-2023U Amph Scr NegativeInvalid Interpretation CodeRemisol ChemU Hayley ScrNegativeInvalid Interpretation CodeRemisol ChemU Benzodia ScrNegativeInvalid Interpretation Code Remisol ChemU Cannab ScrNegativeInvalid Interpretation CodeRemisol ChemU Cocaine ScrNegativeInvalid Interpretation CodeRemisol ChemU Opiate ScrNegativeInvalid Interpretation CodeRemisol ChemU PCP ScrNegativeInvalid Interpretation Code Remisol ChemCHEMISTRYOrdered By: SYSTEM SYSTEM on 09-78-9727Bqong gap [Moles/Vol]12 mmol/LNormal6 - 16 mEq/LRemisol ChemCalcium [Mass/Vol]9.5 mg/dL Normal8.9 - 11.1 mg/dLRemisol ChemChloride [Moles/Vol]101 mmol/DPtaxfs461 - 111 mmol/LRemisol ChemCO2 [Moles/Vol]27 mmol/JYicrpl97 - 31 mmol/LRemisol Chem Creatinine [Mass/Vol]0.9 mg/dLNormal0.5 - 1.3 mg/dLRemisol FyvvrXJN15 mL/min/1.73 g8Jdcmqk>=59mL/min/1.73 u6Xxkyive ChemGlucose [Mass/Vol]87 mg/dL Npjqsp30 - 199 mg/dLRemisol ChemPotassium [Moles/Vol]4.9 mmol/LNormal3.5 - 5.3 mmol/LRemisol ChemSodium [Moles/Vol]135 mmol/KMllscj986 - 145 mmol/LRemisol Chem Qvzqgnaj69.70 pg/fJCzrdbu92.10 - 27.10 pg/mLRemisol ChemComment on above: Interpretive Data: The 95% CI (Confidence Interval) PPV (Positive Predictive Value) for myocardial infarction in females is 38 pg/mL, in males 51 pg/mL. The results should be used in conjunction withclinical conditions of myocardial infarction. (Access High Sensitivity Troponin I Instructions For Use, [place], March 2018)Urea nitrogen [Mass/Vol]24 mg/dLHigh5 - 21 mg/dLRemisol ChemUrea nitrogen/Creatinine [Mass ratio]27 mg/fwDydi94 - 20Remisol ChemCHEMISTRYOrdered By: Karlos Barclay on 15-26-3430Mqoqbkh [Mass/Vol]96 mg/lUJrduhb34 - 99 mg/dLHILLCREST [facility]TH POC SubsectionComment on above:Result Comment: Notified RN/MDPMICHAEL Device SN [id number] 1Invalid Interpretation CodeFTMC POC SubsectionPOC User [id number] 1Invalid Interpretation CodeFT POC SubsectionPOC UsernamCORINNE Angel Invalid Interpretation CodeFTMC POC SubsectionCNPNon 06-74-6530BIJBPrrutv [facility] Head or Brain w/o Contraston 91-54-5100XB Head or Brain w/o ContrastExam Date/Time: 09/12/2023 [...] by: ARAVIND Technologist: JON Technical Comments Contrast: NoneNormBlanchard Valley Health SystemCapillary Glucose POCon 91-77-7194Jnoczdx [Mass/Vol]96 mg/vQBlmjhf47-52RwjqzwMansfield Hospital Comment on above:Result Comment: Notified RN/ANDREINAerformed By: #### 5854354, 07096027, 1472147, 9203028, 8081663, 4720677 #### [facility] [address] [place] [address] 526[address]Ltzqxed for Treatmenton 46-46-9679Kicpmzl for Treatment [id number]#1.00TIFCleveland Clinic Children's Hospital for RehabilitationDischarge Instructionson 94-97-1330Wqfgesctm Instructions [id number]#1.00TIFMetroHealth [facility] Clinical Summaryon 13-53-5097WO Clinical Summary [address] [address] ED Clinical Summary Person Information Name: HARJIT ASENCIO/[place] Age: 73 Years : 1950 Sex: Female Language: Danish PCP: Peggy Nazario MD Marital Status: Visit [...] 09/12/2023 06:47:40 09/12/2023 06:47:40 09/12/2023 06:47:40 ADDRESS: [address] [place] [address] [address] [facility] [id number] PHYS DOC NOTES: MEDICAL INFORMATION: Prescriptions Given: [...] Address: When: Peggy Bermudezby [address] [place] [address] [facility] (1) In 3 days DIAGNOSIS: Acid reflux; TremorNormalFisher Hernandez Medical CenterED Note-Physicianon 02-55-9710LZ Note-PhysicianBasic Information Time Seen: Parveen Ayers DO [...] and Complexity of Problems Differential Diagnosis: [] [facility] Data External documents reviewed: N/A My [...] Information Peggy Nazario In 3 days [address] [place], [place] [address] (1) Additional Instructions: Patient Education Tremor Gastroesophageal [...] dilation of urethral stri (more content not included)...[facility] CenterComment on above:Result Comment: Electronically Signed By: Parveen Ayers DO\.br\Date and Time Signed: 09/12/23 06:35 SAURAV Patient Education Noteon 40-40-6515GT Patient Education NoteGastroenterology Gastroesophageal Reflux Disease, Adult [...] vinegar, hot sauces, and barbecue sauce. ? [place]aines fruit juices and citrus fruits, such as oranges, ronald, and limes. ? Tomato-based foods, such as red sauce, chili, salsa, and pizza with red sauce. ? Fried and fatty foods, such as donuts, emirati fries, potato chips, and high- fat dressings. [...] about a safe eugene (more content not included)...[facility]us [facility] CenterED Patient Summaryon 09-12-2023 ED Patient Summary [address] [address] Patient Discharge Instructions Person Information Name: HARJIT ASENCIO I Age: 73 Years Arrival Date: 09/12/2023 04:02:15 Discharge Diagnosis: Acid reflux; Tremor Primary Care Physician: Peggy Nazario MD Provider Information Primary Provider: Parveen Ayers DO [employer] Engineer:None The exam and treatment you received in the Emergency Department were for an urgent problem and are not intended as complete care. It is important that you follow up with a doctor, nurse practitioner,or physician?s bilingual administrative assistant for ongoing care. If your symptoms [...] Address: When: Peggy Nazario [address] [place] [address] Business (1) In 3 days In the event that this physician does not participate in your insurance network, please consult with your insurance company to find a nearby participating provider. Patient Education Materials: Tremor; Gastroesophageal Reflux Disease, Adult A MESSAGE TO ALL PATIENTS REGARDING OPIOIDS PRESCRIPTION OPIOIDS: WHAT YOU NEED TO KNOW Prescription opioids can be used to help relieve asjtvjfg-uf-gkxiep pain and are often prescribed following a [...] be struggling with addiction, tell your health residential care officer and ask for guidance or call [facility]?S National Helpline at [phone]-TVRD. x Source: Department of (more content not included)...[facility] CenterHEMATOLOGYOrdered By: SYSTEM SYSTEM on 79-40-6032Mzwfthye Absolute 0.1 E9/LNormal0.0 - 0.2 E9/LRemisol HemeBasophils/100 WBC (Bld)1.1 %Normal0.0 - 2.0 %Remisol HemeEos Absolute0.1 E9/LNormal0.0 - 0.5 E9/LRemisol Heme Eosinophils/100 WBC (Bld)1.2 %Normal0.0 - 8.0 %Remisol HemeErythrocyte distribution width (RBC) [Ratio]13.7 %Dpezoz79.9 - 14.2 %Remisol HemeHematocrit (Bld) [Volume fraction]41.0 %Pwfwuf50.0 - 46.0 %Remisol HemeHemoglobin (Bld) [Mass/Vol]13.4 g/zCZugtcf72.0 - 16.0 gm/dLRemisol HemeLymph Absolute1.9 E9/L Normal1.0 - 4.0 E9/LRemisol HemeLymphocytes/100 WBC (Bld)25.9 %Uhwnhi84.0 - 50.0 %Remisol HemeMCH (RBC) [Entitic mass]29.5 vkZzpqzo28.0 - 34.0 pgRemisol Heme MCHC (RBC) [Mass/Vol]32.9 g/pRKwdelo16.4 - 36.0 gm/dLRemisol HemeMCV (RBC) [Entitic vol]89.6 dPSotloi83.0 - 100.0 fLRemisol HemeMono Absolute0.6 E9/LNormal 0.2 - 1.0 E9/LRemisol HemeMonocytes/100 WBC (Bld)8.0 %Normal4.0 - 14.0 %Remisol HemeNeutro Absolute4.7 E9/LNormal2.0 - 7.5 E9/LRemisol HemeNeutro Auto63.8 % Ijqfsm29.0 - 75.0 %Remisol VguaNouxjuzq052.0 E9/QFbahig451.0 - 500.0 E9/LRemisol HemePlatelet mean volume (Bld) [Entitic vol]8.2 fLNormal6.4 - 10.8 fLRemisol HemeRBC4.6 E12/LNormal4.3 - 5.9 E12/LRemisol HemeWBC7.4 E9/LNormal4.0 - 11.0 E9/LRemisol HemeMonitor Recordon 22-26-5950Vybhbbp Record [id number]#1.00TIFFNormalMansfield HospitalTroponin 0 Hr.on 69-48-1832Nnsjveek89.70 pg/vBDenxkw00.10-27.10M[facility]field HospitalComment on above:Result Comment: The 95% CI (Confidence Interval) PPV (Positive Predictive Value) for myocardial infarction in females is 38 pg/mL, in males 51 pg/mL. The results should be used in conjunction with clinical conditions of myocardial infarction. (Access High Sensitivity Troponin I Instructions For Use, [place], March 2018)Performed By: #### 3979027, 11770820, 4760964, 2072190, 9219420, 4794110 #### [facility] [address], [place] [address]R Drug Screenon 09-12-2023U Amph ScrNegativeInvalid Interpretation [facility] CenterComment on above:Performed By: #### 2322238, 80020722, 0989093, 4913032, 5627862, 9893567 #### [facility] [address], [place] [address]Q Hayley ScrNegativeInvalid Interpretation [facility] CenterComment on above:Performed By: #### 5821085, 27228566, 5461992, 1673887, 7639303, 3358143 #### [facility] [address], [place] [address]G Benzodia ScrNegativeInvalid Interpretation [facility] CenterComment on above:Performed By: #### 7484912, 24879865, 0119601, 4634653, 9526964, 9955700 #### [facility] [address] [place] [address] 21232T Cannab ScrNegativeInvalid Interpretation [facility] CenterComment on above:Performed By: #### 3667880, 95927154, 5300032, 3337596, 2816469, 0830390 #### [facility] [address] [place] [address] 93217P Cocaine ScrNegativeInvalid Interpretation [facility] CenterComment on above:Performed By: #### 0062167, 06209840, 0956300, 0083385, 8575316, 4054884 #### [facility] [address] [place] [address] 08352G Opiate ScrNegativeInvalid Interpretation [facility] CenterComment on above:Performed By: #### 1715280, 73661261, 1902524, 9393062, 7174355, 7698810 #### [facility] [address] [place] [address] 33378Q PCP ScrNegativeInvalid Interpretation [facility] CenterComment on above:Performed By: #### 1450502, 64931641, 5403073, 6139761, 2506641, 9298155 #### [facility] [address] [place] [address] 21732CF With Cult Reflexon 79-61-0872Vghmujiir Ql (U)NegativeNormal NegativeMansfield HospitalComment on above:Performed By: #### [id number] #### [facility] [address] [place] [address] 69945Bgpxoci (U)CLEARNormalClearMansfield HospitalComment on above:Performed By: #### [id number] #### [facility] [address] [place] [address] 19747Ruair (U)STRAWInvalid Interpretation [facility] CenterComment on above:Performed By: #### [id number] #### [facility] [address], [place] [address]Kgrytbjrsh cells.squamous LM.HPF (Urine sed) [#/Area]0-2Normal 0-2Fisher [facility] HospitalComment on above:Performed By: #### [id number] #### [facility] [address], [place] [address]Shywerx Test strip (U) [Mass/Vol]NegativeNormalNegativeMansfield HospitalComment on above:Performed By: #### [id number] #### [facility] [address], [place] [address]Wdhjqjlfwj Ql (U)1+AbnormalNegativeMansfield Hospital Comment on above:Performed By: #### [id number] #### [facility] [address] [address]Qgzddla (U) [Mass/Vol]NegativeNormalNegativeMansfield HospitalComment on above:Performed By: #### [id number] #### [facility]en [facility] [address], [place] [address]Zxydjjf.plasma/[place].RBC (Bld) [Mass ratio]1-0Rbfpkh4-2Mwmhqd [facility] HospitalComment on above:Performed By: #### [id number] #### [facility] [address], [place] [address]Qagokcu Ql (U)NegativeNormalNegSt. Mary's Medical Center Comment on above:Performed By: #### [id number] #### [facility] [address], [place] [address]iP (U)7.0 [pH]Invalid Interpretation Code5.0-9.0Mansfield HospitalComment on above:Performed By: #### [id number] #### [facility] [address], [place] [address]Knjynpa (U) [Mass/Vol]NegativeNormalNegativeMansfield HospitalComment on above:Performed By: #### [id number] #### [facility] [address], [place] [address]Jtzlzaxf gravity (U) [Rel density]<=1.005Invalid Interpretation Code1.005-1.030Mansfield HospitalComment on above:Performed By: #### [id number] #### Farshad [facility] [address] [place] [address]Ipjd of Urine collection methodClean CatchNormalMansfield HospitalComment on above:Performed By: #### [id number] #### Farshad [facility] [address] [place] [address] 28[address]Ndvsebucfhjf Qn (U)0.2 {Judith'U}/dLNormal0.0-1.0Mansfield HospitalComment on above:Performed By: #### [id number] #### [facility] [address] [place] [address]JGL Auto Ql (U)TRACEAbnormalNegativeMansfield Hospital Comment on above:Performed By: #### [id number] #### [facility]en [facility] [address] [place] [address]NKJ LM.HPF (Urine sed) [#/Area]8-8Pnfbji0-9Yttuki [facility] HospitalComment on above:Performed By: #### [id number] #### Farshad [facility] [address] [place] [address] 72036PXEXKTZGLBToqkzkp By: Maryan Frost on 06-06-4642Wmgnxvamg Ql (U)Negative (09/12/23 4:53 AM)NormalNegativeHILLCREST [facility] UA Auto SSClarity (U)Clear (09/12/23 4:53 AM)NormalClearFTM UA Auto SSColor (U)STRAWInvalid Interpretation CodeHILLCREST HOSPITAL SOUTH UA Auto SSEpithelial cells.squamous LM.HPF (Urine sed) [#/Area]0-2 /HPF Normal0-2/HPFHILLCREST HOSPITAL SOUTH UA Auto SSGlucose Test strip (U) [Mass/Vol]Negative (09/12/23 4:53 AM)NormalNegativeHILLCREST HOSPITAL SOUTH UA Auto SSHemoglobin Ql (U)1+ *ABN* (09/12/23 4:53 AM)Invalid Interpretation CodeNegativeHILLCREST HOSPITAL SOUTH UA Auto SSKetones (U) [Mass/Vol]Negative (09/12/23 4:53 AM)NormalNegativeHILLCREST HOSPITAL SOUTH UA Auto SSLithium.plasma/[place].RBC (Bld) [Mass ratio]0-3 /HPFNormal0-3/HPFHILLCREST HOSPITAL SOUTH UA Auto SSNitrite Ql (U)Negative (09/12/23 4:53 AM)NormalNegativeHILLCREST HOSPITAL SOUTH UA Auto SSpH (U)7.0 *NA* (09/12/23 4:53 AM)Invalid Interpretation Code5.0 - 9.0[facility] UA Auto SSProtein (U) [Mass/Vol]Negative (09/12/23 4:53 AM)NormalNegativeHILLCREST HOSPITAL SOUTH UA Auto SSSpecific gravity (U) [Rel density] <=1.005 *NA* (09/12/23 4:53 AM)Invalid Interpretation Code1.005 - 1.030[facility] UA Auto SSUA Spec DescClean Catch (09/12/23 4:53 AM)NormalHILLCREST HOSPITAL SOUTH UA Auto SSUrobilinogen Qn (U)0.6925884 {Judith'U}/dLNormal0.0 - 1.0 EU/dLHILLCREST HOSPITAL SOUTH UA Auto SSWBC Auto Ql (U)Trace *ABN* (09/12/23 4:53 AM)Invalid Interpretation CodeNegativeHILLCREST HOSPITAL SOUTH UA Auto SSWBC LM.HPF (Urine sed) [#/Area]0-5 /HPFNormal0-5/HPFHILLCREST HOSPITAL SOUTH UA Auto SSXR Chest Single Viewon 23-90-3574NF Chest Single ViewExam Date/Time: 09/12/2023 05:04 EST [...] Ka,r in mGy = na DAP = naNormalMansfield HospitaleGFRon 82-59-0912rAML74 mL/min/1.73 m2 Normal>=59Mansfield HospitalComment on above:Order Comment: Order Added by Discern Expert.Performed By: #### [id number], [id number], [id number], [id number], [id number], [id number] #### [facility]en [facility] [address], [place] [address]EDGFjf 61-70-7891YPLNSksuavBurguovgd Clinic ClevelandCNPNon 73-09-1233MVQZNwzoicRviwrsuuk Clinic ClevelandCBC panel Auto (Bld)on 08-31-2023 Erythrocyte distribution width (RBC) [Ratio]12.9 %Fmtmck79.5-15.0St[facility]onton CampusComment on above:Order Comment: Specimen Type: BLOOD SPECIMENOrdering Facility: [facility] Address:[address] [place], [place] [address]Performed By: #### 75943-5 ####[facility] [id number] [address] OF POMERENE HOSPITALHematocrit (Bld) [Volume fraction]36.1 %Fqscrv13.0-46.0St[facility] CampusComment on above:Order Comment: Specimen Type: BLOOD SPECIMENOrdering Facility: [facility] Address:[address] [place], [place] [address]Performed By: #### 51563-9 ####[facility] [id number] [place] [address] [place] Hemoglobin (Bld) [Mass/Vol]11.9 g/vEXacccr99.5-15.5COhioHealth [facility] Comment on above:Order Comment: Specimen Type: BLOOD SPECIMENOrdering Facility: [facility] Address:[address] [place] [address] Performed By: #### 61522-4 ####[facility] [id number] [place] [address] [place] MCH (RBC) [Entitic mass]29.5 rxKikzyz94.0-34.0[facility] on above:Order Comment: Specimen Type: BLOOD SPECIMENOrdering Facility: [facility] Address:[address] [place] [address] Performed By: #### 87524-0 ####[facility] [id number] [place] [address] [place] MCHC (RBC) [Mass/Vol]33.0 g/hNApvywm00.5-36.0[facility] on above:Order Comment: Specimen Type: BLOOD SPECIMENOrdering Facility: [facility] Address:[address] [place] [address] Performed By: #### 40396-7 ####[facility] [id number] [place] [address] [place] MCV (RBC) [Entitic vol]89.4 bWXupcmp55.0-100.0[facility] on above:Order Comment: Specimen Type: BLOOD SPECIMENOrdering Facility: [facility] Address:[address] [place] [address] Performed By: #### 25324-1 ####[facility] [id number] [place] [address] [place] Nucleated RBC (Bld) [#/Vol]10*3/uLNormal<0.01[facility] on above:Order Comment: Specimen Type: BLOOD SPECIMENOrdering Facility: [facility] Address:[address] [place] [address] Performed By: #### 62353-3 ####[facility] [id number] [place] [address] [place] Platelet mean volume (Bld) [Entitic vol]10.2 fLNormal9.0-12.7CRegency Hospital Company on above:Order Comment: Specimen Type: BLOOD SPECIMENOrdering Facility: [facility] Address:[address] [place], [place] [address]Performed By: #### 94218-6 ####[facility] [id number] [place] [address] [place] Platelets (Bld) [#/Vol]175 10*3/oQAejkxr009-552UwouakozsTuscarawas Hospital on above:Order Comment: Specimen Type: BLOOD SPECIMENOrdering Facility: [facility] Address:[address] [place] [address] Performed By: #### 90565-2 ####[facility] LABCL[facility] [id number] [place] [address] [place] RBC (Bld) [#/Vol]4.04 10*6/uLNormal3.90-5.20[facility] on above:Order Comment: Specimen Type: BLOOD SPECIMENOrdering Facility: [facility] Address:[address] [place], [place] [address]Performed By: #### 95352-1 ####[facility] [id number] [place] [address] [place] AMERICAWBC (Bld) [#/Vol]6.11 10*3/uLNormal3.70-11.00[facility] on above:Order Comment: Specimen Type: BLOOD SPECIMENOrdering Facility: [facility] Address:[address] [place], [place] [address]Performed By: #### 25621-5 ####[facility] LABCL[facility] [id number] [place] [address] [place] AMERICACNDSon 47-68-5597XSFIGfvmcy St. Charles Hospitalprehensive metabolic 2000 panelon 30-12-8104Ucxgxqf [Mass/Vol]3.5 g/dLLow3.9-4.9CRegency Hospital Company on above:Order Comment: Specimen Type: BLOOD SPECIMENOrdering Facility: [facility] Address:[address] [place], [place] [address]Performed By: #### 62079- 9, 01146-2 ####[facility]CL[facility] [id number] [place] [address] [place] AMERICAALP [Catalytic activity/Vol]52 U/KJobewi87-330UcxqejtbqTuscarawas Hospital on above:Order Comment: Specimen Type: BLOOD SPECIMENOrdering Facility: [facility] Address:[address] [place], [place] [address]Performed By: #### 51932- 9, 42862-6 ####[facility]CL[facility] [id number] [facility] [place] [address] [place]ALT [Catalytic activity/Vol]24 U/LNormal7-38[facility] on above:Order Comment: Specimen Type: BLOOD SPECIMENOrdering Facility: [facility] Address:[address] [place], [place] [address]Performed By: #### 48810- 9, 54088-1 ####[facility] [id number] [facility] [place] [address] [place] AMERICAAnion gap [Moles/Vol]9 mmol/LNormal9-18[facility] on above:Order Comment: Specimen Type: BLOOD SPECIMENOrdering Facility: [facility] Address:[address] [place], [place] [address]Performed By: #### 11319-4, 80296-0 ####[facility]CL[facility] [id number] [facility]D AVENUEDESK [place] [id number] [place] AMERICAAST [Catalytic activity/Vol]20 U/SJsssxd34-88CamdczrauTuscarawas Hospital on above:Order Comment: Specimen Type: BLOOD SPECIMENOrdering Facility: [facility] Address:[address] [place], [place] [address]Performed By: #### 53763-7, 21473-8 ####[facility] [id number] [place] [address] [place] AMERICABilirubin [Mass/Vol]0.5 mg/dLNormal0.2-1.3 [facility] CampusComment on above:Order Comment: Specimen Type: BLOOD SPECIMENOrdering Facility: [facility] Address:[address] [place], [place] [address]Performed By: #### 74072-4, 46594-2 ####[facility] [id number] [place] [address] [place] AMERICACalcium [Mass/Vol]9.2 mg/dLNormal8.5-10.2COhioHealth Mansfield HospitalCombeaumont hospital on above:Order Comment: Specimen Type: BLOOD SPECIMENOrdering Facility: [facility] Address:[address] [place], [place] [address]Performed By: #### 20387-4, 22883-7 ####[facility] [id number] [place] [address] [place] AMERICAChloride [Moles/Vol]103 mmol/CUgmlod86-322WjznopedwSt. [facility] Comment on above:Order Comment: Specimen Type: BLOOD SPECIMENOrdering Facility: [facility] Address:[address] [place] [address] Performed By: #### 07792-0, 60769-5 ####[facility] [id number] [place] [address] [place] CO2 [Moles/Vol]25 mmol/KZzrypy17-05OjyjovxwfTuscarawas Hospital on above: Order Comment: Specimen Type: BLOOD SPECIMENOrdering Facility: [facility] Address:[address] [place], [place] [address]Performed By: #### 03967- 9, 40180-9 ####[facility] [id number] [address] [facility] [place] [address] [place] AMERICACreatinine [Mass/Vol] 0.90 mg/dLNormal0.58-0.96St. Charles Hospitalment on above:Order Comment: Specimen Type: BLOOD SPECIMENOrdering Facility: [facility] Address:[address] [place], [place] [address]Performed By: #### 14843- 9, ####[facility] [id number] [address] [facility] [place] [address] [place] AMERICACreatinine and Glomerular filtration rate.predicted panel (S/P/Bld)67 mL/min/1.73m???Normal>=60 [facility] on above:Order Comment: Specimen Type: BLOOD SPECIMENOrdering Facility: [facility] Address:[address] [place], [place] [address]Result Comment: Estimated Glomerular Filtration Rate (eGFR) is calculated using the 2020 CKD-EPI creatinine equation. This equation utilizes serum creatinine, sex, and age as parameters. The creatinine assay has traceable calibration to isotope dilution-mass spectrometry. Refer to KDIGO guidelines for clinical interpretation. In patients with unstable renal function, e.g. those with acute kidney injury, the eGFR may not accurately reflect actual GFR.Performed By: #### 31558-3, 01155-1 ####[facility] [id number] [facility]D AVENUEDANIEL FREEMAN [place] [address] [place] AMERICAGlucose [Mass/Vol]85 mg/tSArabcl35-78VhsvryudxSt. [facility] Comment on above:Order Comment: Specimen Type: BLOOD SPECIMENOrdering Facility: [facility] Address:[address] [place], [place] [address]Result Comment: The [place] Diabetes Association (ADA) provides guidance for cutoff [...] Standards of Medical Care in Diabetes 2016, [place] [employer]. Diabetes Care. 2016.39(Suppl 1).Performed By: #### 59192-9, 97650-1 ####[facility]CL[facility] [id number] [place] [address] [place] AMERICAPotassium [Moles/Vol]4.3 mmol/LNormal3.7-5.1CRegency Hospital Company on above:Order Comment: Specimen Type: BLOOD SPECIMENOrdering Facility: [facility] Address:[address] [place], [place] [address]Performed By: #### 00087-5, 50329-2 ####[facility] [id number] [place] [address] [place] AMERICAProtein [Mass/Vol]5.9 g/dLLow6.3-8.0[facility] on above:Order Comment: Specimen Type: BLOOD SPECIMENOrdering Facility: [facility] Address:[address] [place], [place] [address]Performed By: #### 70389-2, 09429-6 ####[facility] [id number] [place] [address] [place] AMERICASodium [Moles/Vol]137 mmol/QBqclkl836-286JeogsfpvmTuscarawas Hospital on above:Order Comment: Specimen Type: BLOOD SPECIMENOrdering Facility: [facility] Address:[address] [place], [place] [address]Performed By: #### 66381-6, 35970-3 ####[facility] [id number] [place] [address] [place] AMERICAUrea nitrogen [Mass/Vol]16 mg/dL Normal7-21[facility] on above:Order Comment: Specimen Type: BLOOD SPECIMENOrdering Facility: [facility] Address:[address] [place], [place] [address]Performed By: #### 67749-2, 51754-3 ####[facility] [id number] [place] [id number] [place] OF AMERICAMagnesium SerPl-mCncon 61-05-4242Ttfoafdvk [Mass/Vol]2.2 mg/dLNormal1.7-2.3CRegency Hospital Company on above:Order Comment: Specimen Type: BLOOD SPECIMENOrdering Facility: [facility] Address:[address] [place], [place] [address]Performed By: #### 94813- 9, 67281-6 ####[facility] [id number] [place] [facility]ALK [address] OF AMERICANUTRITIONon 08-31-2023 NUTRITIONNormalCleveland Carolinas Continuecare Hospital At PinevillePT EDon 80-60-8906FJ EDNormalCmercy health anderson hospitaland [facility] EDNormalCmercy health anderson hospitaland [facility] FEMALE PELVIS TRANSABD LTDon 69-18-8750AI FEMALE PELVIS TRANSABD LTDNormalCChildren's Hospital for Rehabilitation FEMALE PELVIS TRANSVAGon 43-73-3812IE FEMALE PELVIS TRANSVAGNormalSt. Mary'S Medical Center, Ir[place] CampusCB panel Auto (Bld)on 69-82-0783Ymigsdmmhud distribution width (RBC) [Ratio]13.1 %Epqjrj35.5-15.0[facility] on above: Order Comment: Specimen Type: BLOOD SPECIMENOrdering Facility: [facility] Address:[address] [place], [place] [address]Performed By: #### 24921- 2 ####[facility] [id number] [place] [id number] [place] AMERICAHematocrit (Bld) [Volume fraction]38.9 %Cfppne18.0-46.0[facility] on above:Order Comment: Specimen Type: BLOOD SPECIMENOrdering Facility: [facility] Address:[address] [place], [place] [address]Performed By: #### 39275- 2 ####[facility]CL[facility] [id number] [address]ETHemoglobin (Bld) [Mass/Vol]12.6 g/hLOogpli57.5-15.5CRegency Hospital Company on above:Order Comment: Specimen Type: BLOOD SPECIMENOrdering Facility: [facility] Address:[address] [place], [place] [address]Performed By: #### 08567-5 ####[facility]CL[facility] [id number] [address] (RBC) [Entitic mass]29.9 pg Mniknb82.0-34.0[facility] on above:Order Comment: Specimen Type: BLOOD SPECIMENOrdering Facility: [facility] Address:[address] [place], [place] [address]Performed By: #### 23598-1 ####[facility] [id number] [address]ETMCHC (RBC) [Mass/Vol]32.4 g/dL Gvycdg35.5-36.0[facility] on above:Order Comment: Specimen Type: BLOOD SPECIMENOrdering Facility: [facility] Address:[address] [place], [place] [address]Performed By: #### 76197-2 ####[facility] [id number] [address]V (RBC) [Entitic vol]92.2 fL Lqhlgn68.0-100.0[facility] on above:Order Comment: Specimen Type: BLOOD SPECIMENOrdering Facility: [facility] Address:[address] [place], [place] [address]Performed By: #### 53760-5 ####[facility] [id number] [place] [address] [place] AMERICANucleated RBC (Bld) [#/Vol] 10*3/uLNormal<0.01[facility] on above:Order Comment: Specimen Type: BLOOD SPECIMENOrdering Facility: [facility] Address:[address] [place], [place] [address]Performed By: #### 78432-3 ####[facility] [id number] [place] [address] [place] AMERICAPlatelet mean volume (Bld) [Entitic vol]10.4 fLNormal9.0-12.7CRegency Hospital Company on above: Order Comment: Specimen Type: BLOOD SPECIMENOrdering Facility: [facility] Address:[address] [place], [place] [address]Performed By: #### 29485- 2 ####[facility] [id number] [place] [address] [place] AMERICAPlatelets (Bld) [#/Vol]185 10*3/yNOtkrkb676-205XjaofgiwzTuscarawas Hospital on above:Order Comment: Specimen Type: BLOOD SPECIMENOrdering Facility: [facility] Address:[address] [place], [place] [address]Performed By: #### 63044-5 ####[facility] [id number] [place] [address] [place] AMERICARBC (Bld) [#/Vol]4.22 10*6/uL Normal3.90-5.20[facility] on above:Order Comment: Specimen Type: BLOOD SPECIMENOrdering Facility: [facility] Address:[address] [place], [place] [address]Performed By: #### 72145-2 ####[facility] [id number] [place] [address] [place] AMERICAWBC (Bld) [#/Vol]6.51 10*3/uL Normal3.70-11.00[facility] on above:Order Comment: Specimen Type: BLOOD SPECIMENOrdering Facility: [facility] Address:[address] [place], [place] [address]Performed By: #### 02842-2 ####[facility]CL[facility] [id number] [facility] [place] [address] [place] AMERICACNCOon 39-05-2379VQQFRbzkti Text NormalSt. Mary'S Medical Center, Ironton CampusCONSULT PROGon 23-25-7383UAMPUEG PROGNormal St. [facility], [facility] CampusComprehensive metabolic 2000 panelon 66-80-9507Jbciaiz [Mass/Vol]3.9 g/dLNormal3.9-4.9CRegency Hospital Company on above:Order Comment: Specimen Type: BLOOD SPECIMENOrdering Facility: [facility] Address:[address] [place], [place] [address]Performed By: #### 84270- 9, 23498-3 ####[facility]CLIA [id number] [place] [address] [place] AMERICAALP [Catalytic activity/Vol]65 U/JNseezm83-274YvnhwmzznTuscarawas Hospital on above:Order Comment: Specimen Type: BLOOD SPECIMENOrdering Facility: [facility] Address:[address] [place], [place] [address]Performed By: #### 71012- 9, 48525-5 ####[facility] [id number] [place] [address] [place]ALT [Catalytic activity/Vol]28 U/LNormal7-38[facility] on above:Order Comment: Specimen Type: BLOOD SPECIMENOrdering Facility: [facility] Address:[address] [place], [place] [address]Performed By: #### 69679- 9, 96711-0 ####[facility] [id number] [place] [address] [place] AMERICAAnion gap [Moles/Vol]9 mmol/LNormal9-18[facility] on above:Order Comment: Specimen Type: BLOOD SPECIMENOrdering Facility: [facility] Address:[address] [place], [place] [address]Performed By: #### 52591-6, 29063-7 ####[facility] [id number] [place] [address] [place] AMERICAAST [Catalytic activity/Vol]24 U/SNiauqe58-76GgsezxvwtTuscarawas Hospital on above:Order Comment: Specimen Type: BLOOD SPECIMENOrdering Facility: [facility] Address:[address] [place], [place] [address]Performed By: #### 91366-2, 76659-7 ####[facility]CL[facility] [id number] [place] [address] [place] AMERICABilirubin [Mass/Vol]0.5 mg/dLNormal0.2-1.3 [facility] on above:Order Comment: Specimen Type: BLOOD SPECIMENOrdering Facility: [facility] Address:[address] [place], [place] [address]Performed By: #### 96784-3, 23280-8 ####[facility]CL[facility] [id number] [place] [address] [place] AMERICACalcium [Mass/Vol]9.3 mg/dLNormal8.5-10.2CRegency Hospital Company on above:Order Comment: Specimen Type: BLOOD SPECIMENOrdering Facility: [facility] Address:[address] [place], [place] [address]Performed By: #### 06952-7, 12187-5 ####[facility]CL[facility] [id number] [place] [address] [place] AMERICAChloride [Moles/Vol]103 mmol/TDadsdd65-805FodtjanmcSt. Mary'[facility] Comment on above:Order Comment: Specimen Type: BLOOD SPECIMENOrdering Facility: [facility] Address:[address] [place] [address] Performed By: #### 78774-0, 24226-7 ####[facility]CLIA [id number] [place] [address] [place] CO2 [Moles/Vol]25 mmol/PNujvwb32-45GoinzyjbwTuscarawas Hospital on above: Order Comment: Specimen Type: BLOOD SPECIMENOrdering Facility: [facility] Address:[address] [place], [place] [address]Performed By: #### 70466- 9, 16751-7 ####[facility] [id number] [place] [address] [place] AMERICACreatinine [Mass/Vol] 1.11 mg/dLHigh0.58-0.96[facility] on above:Order Comment: Specimen Type: BLOOD SPECIMENOrdering Facility: [facility] Address:[address] [place], [place] [address]Performed By: #### 25190-8, 01712-6 ####[facility] [id number] [place] [address] [place] AMERICACreatinine and Glomerular filtration rate.predicted panel (S/P/Bld)52 mL/min/1.73m???Low>=60[facility] on above:Order Comment: Specimen Type: BLOOD SPECIMENOrdering Facility: [facility] Address:[address] [place], [place] [address]Result Comment: Estimated Glomerular Filtration Rate (eGFR) is calculated using the 2020 CKD-EPI creatinine equation. This equation utilizes serum creatinine, sex, and age as parameters. The creatinine assay has traceable calibration to isotope dilution-mass spectrometry. Refer to KDIGO guidelines for clinical interpretation. In patients with unstable renal function, e.g. those with acute kidney injury, the eGFR may not accurately reflect actual GFR.Performed By: #### 46449-9, 07234-1 ####[facility] LABCLIA [id number] [place] [address] [place] AMERICAGlucose [Mass/Vol]149 mg/aLKoya11-79CjztfuhvfSt. [facility] Comment on above:Order Comment: Specimen Type: BLOOD SPECIMENOrdering Facility: [facility] Address:[address] [place], [place] [address]Result Comment: The [place] Diabetes Association (ADA) provides guidance for cutoff [...] Standards of Medical Care in Diabetes 2016, [place] [employer]. Diabetes Care. 2016.39(Suppl 1).Performed By: #### 96060-4, 15377-2 ####[facility] LABCLIA [id number] [place] [address] [place] AMERICAPotassium [Moles/Vol]5.0 mmol/LNormal3.7-5.1COhioHealth Mansfield HospitalComment on above:Order Comment: Specimen Type: BLOOD SPECIMENOrdering Facility: [facility] Address:[address] [place], [place] [address]Performed By: #### 12764-3, ####[facility] LABCLIA [id number] [place] [address] [place] AMERICAProtein [Mass/Vol]6.3 g/dLNormal6.3-8.0[facility] on above:Order Comment: Specimen Type: BLOOD SPECIMENOrdering Facility: [facility] Address:[address] [place] [address] Performed By: #### 80864-7, ####[facility]CL[facility] [id number] [place] [address] [place] Sodium [Moles/Vol]137 mmol/GUihyyq526-405TubcxqbuuSt. Mary'S Medical Center, [facility] CampusComment on above:Order Comment: Specimen Type: BLOOD SPECIMENOrdering Facility: [facility] Address:[address] [place], [place] [address]Performed By: #### 38973-1, 81279-9 ####[facility] LABIA [id number] [place] [address] [place] AMERICAUrea nitrogen [Mass/Vol]19 mg/dLNormal7-21[facility] on above:Order Comment: Specimen Type: BLOOD SPECIMENOrdering Facility: [facility] Address:[address] [place], [place] [address]Performed By: #### 32690- 9, 59771-2 ####[facility] LABIA [id number] [place] [address] [place] AMERICAMagnesium SerPl-mCncon 46-05-8632Vpqvuudfg [Mass/Vol]2.2 mg/dLNormal1.7-2.3COhioHealth Mansfield Hospital Comment on above:Order Comment: Specimen Type: BLOOD SPECIMENOrdering Facility: [facility] Address:[address] [place] [address] Performed By: #### 36858-6, 78093-6 ####[facility] LABIA [id number] [place] [address] [place] NURSING PROGon 70-04-3405CASCHJK PROGNormalSt. Mary'S Medical Center, [facility] CampusNUTRITIONon 46-66-9527PUNMIWFFIHniongWwmnaalrc Clinic ClevelandCB panel Auto (Bld)on 33-10-8320Pvwouuedkyo distribution width (RBC) [Ratio]13.1 %Nvheee94.5-15.0 [facility] on above:Order Comment: Specimen Type: BLOOD SPECIMENOrdering Facility: [facility] Address:[address] [place], [place] [address]Performed By: #### 01745-3 ####[facility] LABIA [id number] [place] [address] [place] [facility] HOSPITALHematocrit (Bld) [Volume fraction]39.4 %Hwxlcp35.0-46.0[facility] on above:Order Comment: Specimen Type: BLOOD SPECIMENOrdering Facility: [facility] Address:[address] [place], [place] [address]Performed By: #### 63716-6 ####[facility] [id number] [place] [address] [place] Hemoglobin (Bld) [Mass/Vol]13.1 g/uXVfdgwj80.5-15.5COhioHealth Mansfield Hospital Comment on above:Order Comment: Specimen Type: BLOOD SPECIMENOrdering Facility: [facility] Address:[address] [place] [address] Performed By: #### 14527-2 ####[facility] [id number] [place] [address] [place] MCH (RBC) [Entitic mass]30.0 kmTqkvqa74.0-34.0[facility] on above:Order Comment: Specimen Type: BLOOD SPECIMENOrdering Facility: [facility] Address:[address] [place] [address] Performed By: #### 69444-8 ####[facility] [id number] [place] [address] [place] MCHC (RBC) [Mass/Vol]33.2 g/yUGzablj77.5-36.0St[facility] CampusComment on above:Order Comment: Specimen Type: BLOOD SPECIMENOrdering Facility: [facility] Address:[address] [place] [address] Performed By: #### 10305-4 ####[facility] [id number] [address] [place] [address] [place] MCV (RBC) [Entitic vol]90.4 cCKzngzr31.0-100.0[facility] on above:Order Comment: Specimen Type: BLOOD SPECIMENOrdering Facility: [facility] Address:[address] [place] [address] Performed By: #### 00920-3 ####[facility] LABIA [id number] [place] [address] [place] Nucleated RBC (Bld) [#/Vol]10*3/uLNormal<0.01[facility] on above:Order Comment: Specimen Type: BLOOD SPECIMENOrdering Facility: [facility] Address:[address] [place] [address] Performed By: #### 74318-0 ####[facility] [id number] [place] [address] [place] Platelet mean volume (Bld) [Entitic vol]10.5 fLNormal9.0-12.7CRegency Hospital Company on above:Order Comment: Specimen Type: BLOOD SPECIMENOrdering Facility: [facility] Address:[address] [place], [place] [address]Performed By: #### 43549-7 ####[facility] [id number] [place] [address] [place] Platelets (Bld) [#/Vol]192 10*3/oUCfxzgo822-661AxsguuiqsTuscarawas Hospital on above:Order Comment: Specimen Type: BLOOD SPECIMENOrdering Facility: [facility] Address:[address] [place] [address] Performed By: #### 74346-6 ####[facility] LABIA [id number] [place] [address] [place] RBC (Bld) [#/Vol]4.36 10*6/uLNormal3.90-5.20[facility] on above:Order Comment: Specimen Type: BLOOD SPECIMENOrdering Facility: [facility] Address:[address] [place], [place] [address]Performed By: #### 44855-5 ####[facility] LABCLIA [id number] [place] [address] [place] AMERICAWBC (Bld) [#/Vol]8.00 10*3/uLNormal3.70-11.00[facility] on above:Order Comment: Specimen Type: BLOOD SPECIMENOrdering Facility: [facility] Address:[address] [place], [place] [address]Performed By: #### 37692-1 ####[facility] LABCLIA [id number] [place] [address] [place] AMERICACT FLANK WO IVCONon 41-78-1453IU FLANK WO IVCONInvalid Interpretation CodeSt. Mary'S Medical Center, [facility] CampusComprehensive metabolic 2000 panelon 12-23-6871Vmlzpwm [Mass/Vol]3.9 g/dLNormal3.9-4.9 [facility] CampusComment on above:Order Comment: Specimen Type: BLOOD SPECIMENOrdering Facility: [facility] Address:[address] [place], [place] [address]Performed By: #### 63475-7, 49986-7 ####[facility] LABCLIA [id number] [place] [address] [place] AMERICAALP [Catalytic activity/Vol]58 U/NHorpsx01-698WnfyymltwTuscarawas Hospital on above:Order Comment: Specimen Type: BLOOD SPECIMENOrdering Facility: [facility] Address:[address] [place], [place] [address]Performed By: #### 28572-4, 84821-2 ####[facility] LABCLIA [id number] [place] [address] [place] AMERICAALT [Catalytic activity/Vol]33 U/LNormal7-38[facility] Comment on above:Order Comment: Specimen Type: BLOOD SPECIMENOrdering Facility: [facility] Address:[address] [place] [address] Performed By: #### 93824-6, 32355-9 ####[facility] LABCLIA [id number] [place] [address] [place] Anion gap [Moles/Vol]10 mmol/LNormal9-18[facility] on above:Order Comment: Specimen Type: BLOOD SPECIMENOrdering Facility: [facility] Address:[address] [place], [place] [address]Performed By: #### 29110-4, ####[facility] LABCLIA [id number] [place] [address] [place] AMERICAAST [Catalytic activity/Vol]25 U/ZFdkghr37-24UjjnxelobTuscarawas Hospital on above:Order Comment: Specimen Type: BLOOD SPECIMENOrdering Facility: [facility] Address:[address] [place], [place] [address]Performed By: #### 86860- 8, ####[facility] LABCLIA [id number] [facility] [place] [address] [place] AMERICABilirubin [Mass/Vol]0.7 mg/dLNormal0.2-1.3CRegency Hospital Company on above:Order Comment: Specimen Type: BLOOD SPECIMENOrdering Facility: [facility] Address:[address] [place], [place] [address]Performed By: #### 53545-4, ####[facility] LABCLIA [id number] [place] [address] [place] AMERICACalcium [Mass/Vol]9.0 mg/dLNormal 8.5-10.2CRegency Hospital Company on above:Order Comment: Specimen Type: BLOOD SPECIMENOrdering Facility: [facility] Address:[address] [place], [place] [address]Performed By: #### 50176-3, ####[facility] LABCLIA [id number] [place] [id number] [place] AMERICAChloride [Moles/Vol]101 mmol/OUrwyof94-347 [facility] on above:Order Comment: Specimen Type: BLOOD SPECIMENOrdering Facility: [facility] Address:[address] [place], [place] [address]Performed By: #### 53376-9, 05532-8 ####[facility] LABCLIA [id number] [place] [address] [place] AMERICACO2 [Moles/Vol]25 mmol/ZJbyspn33-46OcydwuabnSt. [facility] Comment on above:Order Comment: Specimen Type: BLOOD SPECIMENOrdering Facility: [facility] Address:[address] [place] [address] Performed By: #### 44063-8, 66547-7 ####[facility] LABIA [id number] [place] [address] [place] Creatinine [Mass/Vol]0.87 mg/dLNormal0.58-0.96[facility] on above:Order Comment: Specimen Type: BLOOD SPECIMENOrdering Facility: [facility] Address:[address] [place] [address] Performed By: #### 16042-6, 76339-1 ####[facility] LABIA [id number] [place] [address] [place] Creatinine and Glomerular filtration rate.predicted panel (S/P/Bld)70 mL/min/1.73m???Normal>=60[facility] on above:Order Comment: Specimen Type: BLOOD SPECIMENOrdering Facility: [facility] Address:[address] [place], [place] [address]Result Comment: Estimated Glomerular Filtration Rate (eGFR) is [...] not accurately reflect actual GFR.Performed By: #### 85144-4, 78535-5 ####[facility] LABCLIA [id number] [facility] [place] [address] [place] AMERICAGlucose [Mass/Vol]85 mg/dLNormal 74-99[facility] on above:Order Comment: Specimen Type: BLOOD SPECIMENOrdering Facility: [facility] Address:[address] [place], [place] [address]Result Comment: The [place] Diabetes Association (ADA) provides guidance for cutoff [...] Standards of Medical Care in Diabetes 2016, [place] [employer]. Diabetes Care. 2016.39(Suppl 1).Performed By: #### 98003- 8, ####[facility] LABCLIA [id number] [facility] [place]D [place] [address] [place] AMERICAPotassium [Moles/Vol] 4.7 mmol/LNormal3.7-5.1CRegency Hospital Company on above:Order Comment: Specimen Type: BLOOD SPECIMENOrdering Facility: [facility] Address:[address] [place], [place] [address]Performed By: #### 82215-6, ####[facility] LABCLIA [id number] [facility]ENTERD AVENUEDANIEL FREEMAN [place] [address] [place] AMERICAProtein [Mass/Vol]6.3 g/dLNormal 6.3-8.0[facility] ClevelandComment on above:Order Comment: Specimen Type: BLOOD SPECIMENOrdering Facility: [facility] Address:[address] [place], [place] [address]Performed By: #### 37764-8, 58800-2 ####[facility] LABCLIA [id number] [place] [address] [place] AMERICASodium [Moles/Vol]136 mmol/YIwqdfd232-703EwzjbgawhTuscarawas Hospital on above:Order Comment: Specimen Type: BLOOD SPECIMENOrdering Facility: [facility] Address:[address] [place], [place] [address]Performed By: #### 31730-3, 83830-3 ####[facility] LABCLIA [id number] [place] [address] [place] AMERICAUrea nitrogen [Mass/Vol]15 mg/dLNormal7-21[facility] on above:Order Comment: Specimen Type: BLOOD SPECIMENOrdering Facility: [facility] Address:[address] [place], [place] [address]Performed By: #### 69224-4, 87205-0 ####[facility] LABIA [id number] [place] [address] [place] AMERICADIGOXIN/LANOXINon 10-94-8957Jnptmpy [Mass/Vol]1.0 ng/mLNormal0.6-1.2 [facility] on above:Order Comment: Specimen Type: BLOOD SPECIMENOrdering Facility: [facility] Address:[address] [place], [place] [address]Result Comment: Provided therapeutic concentrations are based on the 2008 ESC Guidelines for the Diagnosis and Treatment of Acute and Chronic Heart Failure.Reference ranges and high/low indicator flags are provided as general guidelines only. The treating physician must determine appropriate targetlevels/dosing based on the specific clinical situation.Performed By: #### DIG ####[facility] LABCLIA [id number] [place] [address] [place] AMERICAMagnesium SerPl-mCncon 08-29-2023 Magnesium [Mass/Vol]2.2 mg/dLNormal1.7-2.3CRegency Hospital Company on above:Order Comment: Specimen Type: BLOOD SPECIMENOrdering Facility: [facility] Address:[address] [place], [place] [address]Performed By: #### 11893-3, 76804-1 ####[facility] LABCLIA [id number] [place] [address] [place] [facility]OR HOSPITALUTRITIONon 94-53-0373WJTKMWXPAFqvlrbSugzgbqed Clinic ClevelandTHYROID PEROXIDASE ANTIBODY BLOODon 19-50-7050ISG Ab Qn[IU]/mLNormal<5.6CRegency Hospital Company on above:Order Comment: Specimen Type: BLOOD SPECIMENOrdering Facility: [facility] Address:[address] [place], [place] [address]Result Comment: Thyroid Peroxidase Antibody test is used as an aid in diagnosis of autoimmune thyroid disease. Clinical correlation is required.Performed By: #### MICRO ####[facility] LABCLIA [id number] [place] [address] [place] AMERICAANES POSTPROC EVALon 08-28-2023 ANES POSTPROC EVALNormalCOhioHealth Mansfield HospitalANES PRE-OPon 65-28-9188IKRF PRE-OPNormalSt. Mary'S Medical Center, [facility] CampusCASE MANAGEMon 65-03-6577TELH MANAGEM NormalSt. Mary'S Medical Center, Iront[facility] CampusCB panel Auto (Bld)on 60-56-8072Qjrvizkkcyq distribution width (RBC) [Ratio]13.1 %Zzabsg33.5-15.0[facility] Comment on above:Order Comment: Specimen Type: BLOOD SPECIMENOrdering Facility: [facility] Address:[address] [place] [address] Performed By: #### 04000-4 ####[facility] LABCLIA [id number] [place] [address] [place] Hematocrit (Bld) [Volume fraction]37.8 %Wwecfd27.0-46.0[facility] on above:Order Comment: Specimen Type: BLOOD SPECIMENOrdering Facility: [facility] Address:[address] [place], [place] [address]Performed By: #### 43433-4 ####[facility] [id number] [place] [address] [place] Hemoglobin (Bld) [Mass/Vol]12.3 g/kZOgsztt38.5-15.5COhioHealth Mansfield Hospital Comment on above:Order Comment: Specimen Type: BLOOD SPECIMENOrdering Facility: [facility] Address:[address] [place] [address] Performed By: #### 70464-7 ####[facility] [id number] [place] [address] [place] MCH (RBC) [Entitic mass]29.5 urScazgu10.0-34.0St[facility] CampusComment on above:Order Comment: Specimen Type: BLOOD SPECIMENOrdering Facility: [facility] Address:[address] [place] [address] Performed By: #### 26575-0 ####[facility] [id number] [place] [address] [place] MCHC (RBC) [Mass/Vol]32.5 g/kEUirfch92.5-36.0St[facility] CampusComment on above:Order Comment: Specimen Type: BLOOD SPECIMENOrdering Facility: [facility] Address:[address] [place] [address] Performed By: #### 03371-8 ####[facility] [id number] [place] [address] [place] MCV (RBC) [Entitic vol]90.6 vELwpmiu85.0-100.0St[facility]ont[facility] CampusComment on above:Order Comment: Specimen Type: BLOOD SPECIMENOrdering Facility: [facility] Address:[address] [place] [address] Performed By: #### 79979-6 ####[facility] LABIA [id number] [place] [address] [place] Nucleated RBC (Bld) [#/Vol]10*3/uLNormal<0.01[facility] on above:Order Comment: Specimen Type: BLOOD SPECIMENOrdering Facility: [facility] Address:[address] [place] [address] Performed By: #### 70497-0 ####[facility] LABIA [id number] [place] [address] [place] Platelet mean volume (Bld) [Entitic vol]10.4 fLNormal9.0-12.7CRegency Hospital Company on above:Order Comment: Specimen Type: BLOOD SPECIMENOrdering Facility: [facility] Address:[address] [place], [place] [address]Performed By: #### 69346-7 ####[facility] LABIA [id number] [place] [address] [place] Platelets (Bld) [#/Vol]180 10*3/vVRlmkem202-595IttxqvenuTuscarawas Hospital on above:Order Comment: Specimen Type: BLOOD SPECIMENOrdering Facility: [facility] Address:[address] [place] [address] Performed By: #### 59489-6 ####[facility] [id number] [place] [address] [place] RBC (Bld) [#/Vol]4.17 10*6/uLNormal3.90-5.20[facility] on above:Order Comment: Specimen Type: BLOOD SPECIMENOrdering Facility: [facility] Address:[address] [place], [place] [address]Performed By: #### 01851-4 ####[facility] LABIA [id number] [place] [address] [place] AMERICAWBC (Bld) [#/Vol]6.22 10*3/uLNormal3.70-11.00[facility] on above:Order Comment: Specimen Type: BLOOD SPECIMENOrdering Facility: [facility] Address:[address] [place], [place] [address]Performed By: #### 19629-3 ####[facility] LABCLIA [id number] [place] [address] [place] AMERICACNOVon 54-00-2254POZJDdpvgk St[facility] CampusCONSULTon 28-11-8228TVOTWKTLkhrthPbdhicmlw Clinic ClevelandComprehensive metabolic 2000 panelon 97-55-2669Ypabtrg [Mass/Vol]3.5 g/dLLow3.9-4.9CRegency Hospital Company on above:Order Comment: Specimen Type: BLOOD SPECIMENOrdering Facility: [facility] Address:[address] [place], [place] [address]Performed By: #### 05224-5, 3024-7 ####[facility] LABCLIA [id number] [place] [address] [place] AMERICAALP [Catalytic activity/Vol]52 U/QXepwdb75-646 [facility] on above:Order Comment: Specimen Type: BLOOD SPECIMENOrdering Facility: [facility] Address:[address] [place], [place] [address]Performed By: #### 04061-5, 3024-7 ####[facility]CL[facility] [id number] [place] [address] [place] AMERICAALT [Catalytic activity/Vol]31 U/LNormal7-38[facility] on above:Order Comment: Specimen Type: BLOOD SPECIMENOrdering Facility: [facility] Address:[address] [place], [place] [address]Performed By: #### 08898-4, 3024-7 ####[facility]CL[facility] [id number] [place] [address] [place] Anion gap [Moles/Vol]10 mmol/LNormal9-18[facility] on above:Order Comment: Specimen Type: BLOOD SPECIMENOrdering Facility: [facility] Address:[address] [place], [place] [address]Performed By: #### 30483-1, 7 ####[facility]CL[facility] [id number] [place] [address] [place] AMERICAAST [Catalytic activity/Vol]26 U/SExzokv90-55ZollpftzjTuscarawas Hospital on above:Order Comment: Specimen Type: BLOOD SPECIMENOrdering Facility: [facility] Address:[address] [place], [place] [address]Performed By: #### 50130- 8, 7 ####[facility]CLIA [id number] [facility] [address] [place] AMERICABilirubin [Mass/Vol]0.5 mg/dLNormal0.2-1.3CRegency Hospital Company on above:Order Comment: Specimen Type: BLOOD SPECIMENOrdering Facility: [facility] Address:[address] [place], [place] [address]Performed By: #### 66587-7, 7 ####[facility]CL[facility] [id number] [place] [address] [place] AMERICACalcium [Mass/Vol]9.5 mg/dLNormal 8.5-10.2CRegency Hospital Company on above:Order Comment: Specimen Type: BLOOD SPECIMENOrdering Facility: [facility] Address:[address] [place], [place] [address]Performed By: #### 52557-7, 3023-7 ####[facility]CL[facility] [id number] [place] [address] [place] AMERICAChloride [Moles/Vol]106 mmol/VJyrt04-356OhgnvleorTuscarawas Hospital on above:Order Comment: Specimen Type: BLOOD SPECIMENOrdering Facility: [facility] Address:[address] [place], [place] [address]Performed By: #### 86284-8, 7 ####[facility] LABIA [id number] [place] [address] [place] AMERICACO2 [Moles/Vol]24 mmol/KWfkhxr62-03SiqlyrobpSt. [facility] Comment on above:Order Comment: Specimen Type: BLOOD SPECIMENOrdering Facility: [facility] Address:[address] [place] [address] Performed By: #### 68891-1, 7 ####[facility] [id number] [place] [address] [place] Creatinine [Mass/Vol]0.75 mg/dLNormal0.58-0.96St[facility] CampusComment on above:Order Comment: Specimen Type: BLOOD SPECIMENOrdering Facility: [facility] Address:[address] [place] [address] Performed By: #### 50540-3, 7 ####[facility] [id number] [address] [place] Creatinine and Glomerular filtration rate.predicted panel (S/P/Bld)83 mL/min/1.73m???Normal>=60St[facility]ont[facility] CampusComment on above:Order Comment: Specimen Type: BLOOD SPECIMENOrdering Facility: [facility] Address:[address] [place], [place] [address]Result Comment: Estimated Glomerular Filtration Rate (eGFR) is [...] not accurately reflect actual GFR.Performed By: #### 38266-8, 3024-7 ####[facility] [id number] [place] [address] [place] AMERICAGlucose [Mass/Vol]88 mg/dLNormal 74-99[facility] on above:Order Comment: Specimen Type: BLOOD SPECIMENOrdering Facility: [facility] Address:[address] [place], [place] [address]Result Comment: The [place] [employer] (ADA) provides guidance for cutoff [...] Standards of Medical Care in Diabetes 2016, [place] [employer]. Diabetes Care. 2016.39(Suppl 1).Performed By: #### 13939- 8, 3027 ####[facility]CL[facility] [id number] [facility] [place] [address] [place] OF AMERICAPotassium [Moles/Vol]4.6 mmol/LNormal3.7-5.1CRegency Hospital Company on above:Order Comment: Specimen Type: BLOOD SPECIMENOrdering Facility: [facility] Address:[address] [place], [place] [address]Performed By: #### 15627-3, 3027 ####[facility] LABCLIA [id number] [facility] [place] [address] [place] OF AMERICAProtein [Mass/Vol]5.9 g/dLLow 6.3-8.0[facility] on above:Order Comment: Specimen Type: BLOOD SPECIMENOrdering Facility: [facility] Address:[address] [place], [place] [address]Performed By: #### 90984-8, 302-7 ####[facility] LABCLIA [id number] [place] [address] [place] OF POMERENE HOSPITALSodium [Moles/Vol]140 mmol/KWcklrk719-011NaxsorlhkTuscarawas Hospital on above:Order Comment: Specimen Type: BLOOD SPECIMENOrdering Facility: [facility] Address:[address] [place], [place] [address]Performed By: #### 32215-1, 3024-7 ####[facility] LABCLIA [id number] [place] [address] [place] OF AMERICAUrea nitrogen [Mass/Vol]13 mg/dLNormal7-21[facility] on above:Order Comment: Specimen Type: BLOOD SPECIMENOrdering Facility: [facility] Address:[address] [place], [place] [address]Performed By: #### 38725-2, 7 ####[facility] LABCLIA [id number] [place] [address] [place] OF SKEADUFYFB89ac 15-08-0023XYX26BuquasKvvhzvmmm [facility] TRANSESOPHAGEALon 19-90-5109YYRQ TRANSESOPHAGEALNormalCleveland [facility] NURSING PROGon 45-78-7622OJATRPF PROGNormalSt. Mary'[facility], [facility]on CampusPT EDon 84-83-5530VU EDNormalCleveland [facility] EDNormalCmercy health anderson hospitaland [facility] PinevilleT4 Free SerPl-mCncon 85-68-9220Wwvb T4 [Mass/Vol]1.1 ng/dLNormal0.9-1.7 [facility] on above:Order Comment: Specimen Type: BLOOD SPECIMENOrdering Facility: [facility] Address:[address] [place], [place] [address]Performed By: #### 78538-5, 7 ####[facility] LABCLIA [id number] [place] [id number] [place] OF AMERICACBC panel Auto (Bld)on 96-19-5734Wmobubqsqwi distribution width (RBC) [Ratio]12.8 %Agyomj33.5-15.0[facility] ClevelandComment on above: Order Comment: Specimen Type: BLOOD SPECIMENOrdering Facility: [facility] Address:[address] [place], [place] [address]Performed By: #### 75816- 2 ####[facility] LABIA [id number] [place] [address] [facility]OM[facility]ENE HOSPITALHematocrit (Bld) [Volume fraction]38.9 %Ujkwrd10.0-46.0[facility] on above:Order Comment: Specimen Type: BLOOD SPECIMENOrdering Facility: [facility] Address:[address] [place], [place] [address]Performed By: #### 99210- 2 ####[facility] LABIA [id number] [address] OF AMERICAHemoglobin (Bld) [Mass/Vol]12.7 g/kDTmuqmx73.5-15.5CRegency Hospital Company on above:Order Comment: Specimen Type: BLOOD SPECIMENOrdering Facility: [facility] Address:[address] [place], [place] [address]Performed By: #### 99440-1 ####[facility] LABIA [id number] [address]ETMCH (RBC) [Entitic mass]29.4 pg Yrzxuo48.0-34.0[facility] on above:Order Comment: Specimen Type: BLOOD SPECIMENOrdering Facility: [facility] Address:[address] [place], [place] [address]Performed By: #### 38525-6 ####[facility] LABIA [id number] [address] STATES OF POMERENE HOSPITALMCHC (RBC) [Mass/Vol]32.6 g/dL Mzspng06.5-36.0[facility] on above:Order Comment: Specimen Type: BLOOD SPECIMENOrdering Facility: [facility] Address:[address] [place], [place] [address]Performed By: #### 17788-7 ####[facility] LABCLIA [id number] [place] [address] [place] OF AMERICAMCV (RBC) [Entitic vol]90.0 fL Uefddi78.0-100.0[facility] on above:Order Comment: Specimen Type: BLOOD SPECIMENOrdering Facility: [facility] Address:[address] [place], [place] [address]Performed By: #### 94900-1 ####[facility] LABIA [id number] [place] [address] [place] OF AMERICANucleated RBC (Bld) [#/Vol] 10*3/uLNormal<0.01[facility] on above:Order Comment: Specimen Type: BLOOD SPECIMENOrdering Facility: [facility] Address:[address] [place], [place] [address]Performed By: #### 66957-8 ####[facility] LABIA [id number] [place] [address] [place] OF AMERICAPlatelet mean volume (Bld) [Entitic vol]10.4 fLNormal9.0-12.7CRegency Hospital Company on above: Order Comment: Specimen Type: BLOOD SPECIMENOrdering Facility: [facility] Address:[address] [place], [place] [address]Performed By: #### 99590- 2 ####[facility] LABIA [id number] [place] [address] [place] OF AMERICAPlatelets (Bld) [#/Vol]143 10*3/cEWxu786-531IvgzqmobtTuscarawas Hospital on above:Order Comment: Specimen Type: BLOOD SPECIMENOrdering Facility: [facility] Address:[address] [place], [place] [address]Performed By: #### 12599-3 ####[facility] LABCLIA [id number] [place] [address] [place] POMERENE HOSPITALRBC (Bld) [#/Vol]4.32 10*6/uL Normal3.90-5.20St[facility] Ironton CampusComment on above:Order Comment: Specimen Type: BLOOD SPECIMENOrdering Facility: [facility] Address:[address] [place], [place] [address]Performed By: #### 90721-9 ####[facility] LABCLIA [id number] [place] [address] [place] POMERENE HOSPITALWBC (Bld) [#/Vol]5.61 10*3/uL Normal3.70-11.00[facility] on above:Order Comment: Specimen Type: BLOOD SPECIMENOrdering Facility: [facility] Address:[address] [place], [place] [address]Performed By: #### 50932-3 ####[facility] LABCLIA [id number] [place] [address] [place] POMERENE HOSPITALComprehensive metabolic 2000 panelon 21-95-1388Uiapisx [Mass/Vol]3.6 g/dLLow3.9-4.9COhioHealth [facility] Hospital Comment on above:Order Comment: Specimen Type: BLOOD SPECIMENOrdering Facility: [facility] Address:[address] [place] [address] Performed By: #### 04623-6, 3016-3 ####[facility] LABIA [id number] [place] [address] [place] ALP [Catalytic activity/Vol]59 U/KOhhhpi92-170VixxuhwrqTuscarawas Hospital on above:Order Comment: Specimen Type: BLOOD SPECIMENOrdering Facility: [facility] Address:[address] [place] [address] Performed By: #### 74584-6, 3016-3 ####[facility] LABCLIA [id number] [place] [address] [place] ALT [Catalytic activity/Vol]29 U/LNormal7-38[facility] on above:Order Comment: Specimen Type: BLOOD SPECIMENOrdering Facility: [facility] Address:[address] [place], [place] [address]Performed By: #### 67454-1, 3016-3 ####[facility] LABCLIA [id number] [place] [address] [place] AMERICAAnion gap [Moles/Vol]8 mmol/LLow9-18[facility] on above:Order Comment: Specimen Type: BLOOD SPECIMENOrdering Facility: [facility] Address:[address] [place], [place] [address]Performed By: #### 12458-3, 3016-3 ####[facility] LABCLIA [id number] [place] [address] [place] AMERICAAST [Catalytic activity/Vol]27 U/TBudohe21-99 [facility] on above:Order Comment: Specimen Type: BLOOD SPECIMENOrdering Facility: [facility] Address:[address] [place], [place] [address]Performed By: #### 66843-3, 3016-3 ####[facility] LABCLIA [id number] [place] [address] [place] AMERICABilirubin [Mass/Vol]0.5 mg/dLNormal0.2-1.3CRegency Hospital Company on above:Order Comment: Specimen Type: BLOOD SPECIMENOrdering Facility: [facility] Address:[address] [place], [place] [address]Performed By: #### 80719-3, 3016-3 ####[facility] LABCLIA [id number] [place] [address] [place] AMERICACalcium [Mass/Vol]9.1 mg/dLNormal8.5-10.2COhioHealth Mans[facility] Hospital Comment on above:Order Comment: Specimen Type: BLOOD SPECIMENOrdering Facility: [facility] Address:[address] [place] [address] Performed By: #### 10530-5, 3016-3 ####[facility] LABCLIA [id number] [place] [address] [place] Chloride [Moles/Vol]105 mmol/TEgrzlf58-431LechlkmpxTuscarawas Hospital on above:Order Comment: Specimen Type: BLOOD SPECIMENOrdering Facility: [facility] Address:[address] [place], [place] [address]Performed By: #### 12029-2, 3016-3 ####[facility] LABCLIA [id number] [place] [address] [place] AMERICACO2 [Moles/Vol]27 mmol/JDjovts57-73StfasadxdTuscarawas Hospital on above:Order Comment: Specimen Type: BLOOD SPECIMENOrdering Facility: [facility] Address:[address] [place], [place] [address]Performed By: #### 92788-5, 6-3 ####[facility] LABCLIA [id number] [place] [address] [place] AMERICACreatinine [Mass/Vol]0.72 mg/dL Normal0.58-0.96[facility] on above:Order Comment: Specimen Type: BLOOD SPECIMENOrdering Facility: [facility] Address:[address] [place], [place] [address]Performed By: #### 90283-2, 6-3 ####[facility] LABIA [id number] [place] [address] [place] AMERICACreatinine and Glomerular filtration rate.predicted panel (S/P/Bld)87 mL/min/1.73m???Normal>=60[facility] on above:Order Comment: Specimen Type: BLOOD SPECIMENOrdering Facility: [facility] Address:[address] [place], [place] [address]Result Comment: Estimated Glomerular Filtration Rate (eGFR) is calculated using the 2020 CKD-EPI creatinine equation. This equation utilizes serum creatinine, sex, and age as parameters. The creatinine assay has traceable calibration to isotope dilution-mass spectrometry. Refer to KDIGO guidelines for clinical interpretation. In patients with unstable renal function, e.g. those with acute kidney injury, the eGFR may not accurately reflect actual GFR.Performed By: #### 51115-5, 6-3 ####[facility] LABCLIA [id number] [address] [address] [place] OF AMERICAGlucose [Mass/Vol]92 mg/pJCqjgyy45-50TouzjyoesSt. Mary'S [facility] Comment on above:Order Comment: Specimen Type: BLOOD SPECIMENOrdering Facility: [facility] Address:[address] [place] [id number] Comment: The [place] [employer] (ADA) provides guidance for cutoff [...] Standards of Medical Care in Diabetes 2016, [place] [employer]. Diabetes Care. 2016.39(Suppl 1).Performed By: #### 00652-9, 3015-3 ####[facility] LABCLIA [id number] [address] [address] [place] OF AMERICAPotassium [Moles/Vol]4.7 mmol/LNormal3.7-5.1COhioHealth Mansfield HospitalComment on above:Order Comment: Specimen Type: BLOOD SPECIMENOrdering Facility: [facility] Address:[address] [place], [place] [address]Glslgdchk By: #### 89337-2, 3015-3 ####[facility] LABCLIA [id number] [address] [address] [place] OF AMERICAProtein [Mass/Vol]5.8 g/dLLow6.3-8.0[facility] on above:Order Comment: Specimen Type: BLOOD SPECIMENOrdering Facility: [facility] Address:[address] [place], [place] [address]Performed By: #### 82646-2, 3016-3 ####[facility] LABCLIA [id number] [place] [address] [place] AMERICASodium [Moles/Vol]140 mmol/YCqsvfc195-851QmqdbydxdTuscarawas Hospital on above:Order Comment: Specimen Type: BLOOD SPECIMENOrdering Facility: [facility] Address:[address] [place], [place] [address]Performed By: #### 76439-7, 3016-3 ####[facility] LABCLIA [id number] [place] [address] [place] AMERICAUrea nitrogen [Mass/Vol]15 mg/dL Normal7-21[facility] on above:Order Comment: Specimen Type: BLOOD SPECIMENOrdering Facility: [facility] Address:[address] [place], [place] [address]Performed By: #### 73298-2, 3016-3 ####[facility] LABCLIA [id number] [place] [address] [place] POMERENE HOSPITALTS SerPl-aCncon 35-66-8374CIJ Qn9.850 m[IU]/LHigh 0.270-4.200[facility] on above:Order Comment: Specimen Type: BLOOD SPECIMENOrdering Facility: [facility] Address:[address] [place], [place] [address]Performed By: #### 53421-6, 3016-3 ####[facility] LABCLIA [id number] [place] [address] [place] AMERICABacteria Ur Culton 00-47-1473Ibkbsmsh identified Cx Nom (U)AbnormalTuscarawas Hospital on above:Performed By: #### 630-4 ####[facility] LABCLIA [id number] [place] [address] [place] OF AMERICACBC panel Auto (Bld)on 08-26-2023 Erythrocyte distribution width (RBC) [Ratio]13.1 %Iswkqw70.5-15.0St. [facility]ont[facility] CampusComment on above:Order Comment: Specimen Type: BLOOD SPECIMENOrdering Facility: [facility] Address:[address] [place], [place] [address]Performed By: #### 85016-0 ####[facility] LAB[facility] [id number] [place] [address] [place] POMERENE HOSPITALHematocrit (Bld) [Volume fraction]38.5 %Mudjno41.0-46.0[facility] on above:Order Comment: Specimen Type: BLOOD SPECIMENOrdering Facility: [facility] Address:[address] [place], [place] [address]Performed By: #### 16825-6 ####[facility] [id number] [place] [address] [place] Hemoglobin (Bld) [Mass/Vol]12.8 g/fFRyxddf70.5-15.5COhioHealth Mans[facility] Hospital Comment on above:Order Comment: Specimen Type: BLOOD SPECIMENOrdering Facility: [facility] Address:[address] [place] [address] Performed By: #### 55695-7 ####[facility] LABIA [id number] [place] [address] [place] MCH (RBC) [Entitic mass]30.0 epRxxllw84.0-34.0[facility] on above:Order Comment: Specimen Type: BLOOD SPECIMENOrdering Facility: [facility] Address:[address] [place] [address] Performed By: #### 13723-6 ####[facility] [id number] [place] [address] [place] MCHC (RBC) [Mass/Vol]33.2 g/pCJybpnf36.5-36.0[facility] on above:Order Comment: Specimen Type: BLOOD SPECIMENOrdering Facility: [facility] Address:[address] [place] [address] Performed By: #### 80285-4 ####[facility] LABCLIA [id number] [place] [address] [place] MCV (RBC) [Entitic vol]90.4 eMMlpgcc99.0-100.0[facility] on above:Order Comment: Specimen Type: BLOOD SPECIMENOrdering Facility: [facility] Address:[address] [place] [address] Performed By: #### 84755-0 ####[facility] LABIA [id number] [place] [address] [place] Nucleated RBC (Bld) [#/Vol]10*3/uLNormal<0.01[facility] on above:Order Comment: Specimen Type: BLOOD SPECIMENOrdering Facility: [facility] Address:[address] [place] [address] Performed By: #### 24702-5 ####[facility] LABIA [id number] [place] [address] [place] Platelet mean volume (Bld) [Entitic vol]10.6 fLNormal9.0-12.7CRegency Hospital Company on above:Order Comment: Specimen Type: BLOOD SPECIMENOrdering Facility: [facility] Address:[address] [place], [place] [address]Performed By: #### 65765-2 ####[facility] LABIA [id number] [place] [address] [place] Platelets (Bld) [#/Vol]168 10*3/tCMwlwdd738-823SamcpjrucTuscarawas Hospital on above:Order Comment: Specimen Type: BLOOD SPECIMENOrdering Facility: [facility] Address:[address] [place] [address] Performed By: #### 11014-0 ####[facility] LABIA [id number] [place] [address] [place] RBC (Bld) [#/Vol]4.26 10*6/uLNormal3.90-5.20[facility] on above:Order Comment: Specimen Type: BLOOD SPECIMENOrdering Facility: [facility] Address:[address] [place], [place] [address]Performed By: #### 89941-9 ####[facility] [id number] [place] [address] [place] AMERICAWBC (Bld) [#/Vol]7.27 10*3/uLNormal3.70-11.00[facility] on above:Order Comment: Specimen Type: BLOOD SPECIMENOrdering Facility: [facility] Address:[address] [place], [place] [address]Performed By: #### 67637-3 ####[facility] [id number] [place] [address] [place] AMERICACONSULTon 82-91-[address]EPGYFekvbq [address] [facility] CampusComprehensive metabolic 2000 panelon 52-88-4192Uakdodq [Mass/Vol]3.5 g/dLLow3.9-4.9CRegency Hospital Company on above:Order Comment: Specimen Type: BLOOD SPECIMENOrdering Facility: [facility] Address:[address] [place], [place] [address]Performed By: #### 46965- 8 ####[facility] [id number] [place] [address] [place] AMERICAALP [Catalytic activity/Vol]60 U/NWidyxa25-967JulfmbckzTuscarawas Hospital on above:Order Comment: Specimen Type: BLOOD SPECIMENOrdering Facility: [facility] Address:[address] [place] [place], [place] [address]Performed By: #### 48725-6 ####[facility] LABCLIA [id number] [place] [address] [place] AMERICAALT [Catalytic activity/Vol]25 U/LNormal7-38[facility] on above:Order Comment: Specimen Type: BLOOD SPECIMENOrdering Facility: [facility] Address:[address] [place], [place] [address]Performed By: #### 07792-9 ####[facility] LABCLIA [id number] [place] [address] [place] AMERICAAnion gap [Moles/Vol]10 mmol/LNormal9-18[facility] on above:Order Comment: Specimen Type: BLOOD SPECIMENOrdering Facility: [facility] Address:[address] [place], [place] [address]Performed By: #### 92676-5 ####[facility] LABCLIA [id number] [place] [address] [place] AST [Catalytic activity/Vol]22 U/XHdffks26-35PjccbsnorTuscarawas Hospital on above:Order Comment: Specimen Type: BLOOD SPECIMENOrdering Facility: [facility] Address:[address] [place] [address] Performed By: #### 20179-6 ####[facility] LABCLIA [id number] [place] [address] [place] Bilirubin [Mass/Vol]0.4 mg/dLNormal0.2-1.3CRegency Hospital Company on above:Order Comment: Specimen Type: BLOOD SPECIMENOrdering Facility: [facility] Address:[address] [place], [place] [address]Performed By: #### 44547-2 ####[facility] LABCLIA [id number] [place] [address] [place] AMERICACalcium [Mass/Vol]8.9 mg/dLNormal8.5-10.2CRegency Hospital Company on above:Order Comment: Specimen Type: BLOOD SPECIMENOrdering Facility: [facility] Address:[address] [place], [place] [address]Performed By: #### 05646-5 ####[facility] LABCLIA [id number] [place] [address] [place] AMERICAChloride [Moles/Vol]104 mmol/L Tpujul59-456WqkjzhoewTuscarawas Hospital on above:Order Comment: Specimen Type: BLOOD SPECIMENOrdering Facility: [facility] Address:[address] [place], [place] [address]Performed By: #### 49925-2 ####[facility] LABCLIA [id number] [place] [address] [place] AMERICACO2 [Moles/Vol]26 mmol/BYcpcvc53-20GxlqybuolTuscarawas Hospital on above:Order Comment: Specimen Type: BLOOD SPECIMENOrdering Facility: [facility] Address:[address] [place], [place] [address]Performed By: #### 35394-8 ####[facility] LABCLIA [id number] [place] [address] [place] Creatinine [Mass/Vol]0.84 mg/dLNormal0.58-0.96[facility] on above:Order Comment: Specimen Type: BLOOD SPECIMENOrdering Facility: [facility] Address:[address] [place] [address] Performed By: #### 20288-2 ####[facility] LABCLIA [id number] [place] [address] [place] Creatinine and Glomerular filtration rate.predicted panel (S/P/Bld)73 mL/min/1.73m???Normal>=60[facility] on above:Order Comment: Specimen Type: BLOOD SPECIMENOrdering Facility: [facility] Address:[address] [place], [place] [address]Result Comment: Estimated Glomerular Filtration Rate (eGFR) is [...] not accurately reflect actual GFR.Performed By: #### 53227-1 ####[facility] LABIA [id number] [place] [id number] [place] AMERICAGlucose [Mass/Vol]93 mg/dLNormal 74-99[facility] on above:Order Comment: Specimen Type: BLOOD SPECIMENOrdering Facility: [facility] Address:[address] [place], [place] [address]Result Comment: The [place] [employer] (ADA) provides guidance for cutoff [...] Standards of Medical Care in Diabetes 2016, [place] [employer]. Diabetes Care. 2016.39(Suppl 1).Performed By: #### 04488-9 ####[facility] LABIA [id number] [place] [id number] [place] AMERICAPotassium [Moles/Vol]4.4 mmol/L Normal3.7-5.1CRegency Hospital Company on above:Order Comment: Specimen Type: BLOOD SPECIMENOrdering Facility: [facility] Address:[address] [place], [place] [address]Performed By: #### 22770-5 ####[facility] LABIA [id number] [place] [id number] [place] AMERICAProtein [Mass/Vol]5.7 g/dLLow6.3-8.0[facility] above:Order Comment: Specimen Type: BLOOD SPECIMENOrdering Facility: [facility] Address:[address] [place], [place] [address]Performed By: #### 06733-8 ####[facility] LABCLIA [id number] [place] [address] [place] Sodium [Moles/Vol]140 mmol/UVtjkvt377-088XhihzrchsTuscarawas Hospital on above:Order Comment: Specimen Type: BLOOD SPECIMENOrdering Facility: [facility] Address:[address] [place], [place] [address]Performed By: #### 95679-1 ####[facility] LABIA [id number] [place] [address] [place] AMERICAUrea nitrogen [Mass/Vol]19 mg/dLNormal7-21[facility] above:Order Comment: Specimen Type: BLOOD SPECIMENOrdering Facility: [facility] Address:[address] [place], [place] [address]Performed By: #### [id number]- [id number] ####[facility] LABCLIA [id number] [place] [address] [place] AMERICACASE MGT INIT ASSESon 08-25-2023 CASE MGT INIT ASSContra [facility] CenteralCB[facility] panel Auto (Bld)on 96-23-6163Bhyhxngfcpu distribution width (RBC) [Ratio]12.9 %Kcyoin76.5-15.0 [facility] on above:Order Comment: Specimen Type: BLOOD SPECIMENOrdering Facility: [facility] Address:[address] [place], [place] [address]Performed By: #### [id number] ####[facility] LABCLIA [id number] [place] [address] [place] OF AMERICAHematocrit (Bld) [Volume fraction]37.8 %Yvfkdf54.0-46.0[facility] on above:Order Comment: Specimen Type: BLOOD SPECIMENOrdering Facility: [facility] Address:[address] [place], [place] [address]Performed By: #### [id number] ####[facility] [id number] [place] [address] [place] Hemoglobin (Bld) [Mass/Vol]12.8 g/tWGaprar51.5-15.5COhioHealth Mansfield Hospital Comment on above:Order Comment: Specimen Type: BLOOD SPECIMENOrdering Facility: [facility] Address:[address] [place] [address] Performed By: #### 99961-7 ####[facility] [id number] [place] [address] [place] MCH (RBC) [Entitic mass]29.9 leHiwoan89.0-34.0[facility] on above:Order Comment: Specimen Type: BLOOD SPECIMENOrdering Facility: [facility] Address:[address] [place] [address] Performed By: #### 61919-7 ####[facility] [id number] [place] [address] [place] MCHC (RBC) [Mass/Vol]33.9 g/vRFmifph01.5-36.0[facility] Hospitalment on above:Order Comment: Specimen Type: BLOOD SPECIMENOrdering Facility: [facility] Address:[address] [place] [address] Performed By: #### 95534-9 ####[facility] LABIA [id number] [place] [address] [place] MCV (RBC) [Entitic vol]88.3 tNGtjcom54.0-100.0[facility] on above:Order Comment: Specimen Type: BLOOD SPECIMENOrdering Facility: [facility] Address:[address] [place] [address] Performed By: #### 24506-3 ####[facility] LABCLIA [id number] [place] [address] [place] Nucleated RBC (Bld) [#/Vol]10*3/uLNormal<0.01[facility] on above:Order Comment: Specimen Type: BLOOD SPECIMENOrdering Facility: [facility] Address:[address] [place] [address] Performed By: #### 79931-6 ####[facility] [id number] [place] [address] [place] Platelet mean volume (Bld) [Entitic vol]10.1 fLNormal9.0-12.7CRegency Hospital Company on above:Order Comment: Specimen Type: BLOOD SPECIMENOrdering Facility: [facility] Address:[address] [place], [place] [address]Performed By: #### 33505-5 ####[facility] [id number] [place] [address] [place] Platelets (Bld) [#/Vol]173 10*3/bAAvbzet636-475WhkbsstcxTuscarawas Hospital on above:Order Comment: Specimen Type: BLOOD SPECIMENOrdering Facility: [facility] Address:[address] [place] [address] Performed By: #### 25345-4 ####[facility] LABCLIA [id number] [place] [address] [place] RBC (Bld) [#/Vol]4.28 10*6/uLNormal3.90-5.20[facility] on above:Order Comment: Specimen Type: BLOOD SPECIMENOrdering Facility: [facility] Address:[address] [place], [place] [address]Performed By: #### 63571-1 ####[facility] LABCLIA [id number] [place] [address] [place] AMERICAWBC (Bld) [#/Vol]6.38 10*3/uLNormal3.70-11.00[facility] on above:Order Comment: Specimen Type: BLOOD SPECIMENOrdering Facility: [facility] Address:[address] [place], [place] [address]Performed By: #### 08155-5 ####[facility] [id number] [place] [address] [place] AMERICAComprehensive metabolic 2000 panelon 34-62-3371Adxsvcp [Mass/Vol]3.4 g/dLLow3.9-4.9COhioHealth Mansfield Hospital Comment on above:Order Comment: Specimen Type: BLOOD SPECIMENOrdering Facility: [facility] Address:[address] [place] [address] Performed By: #### 73232-7, 08913-7 ####[facility] [id number] [place] [address] [place] ALP [Catalytic activity/Vol]48 U/KWwetsj71-010GvznebehlTuscarawas Hospital on above:Order Comment: Specimen Type: BLOOD SPECIMENOrdering Facility: [facility] Address:[address] [place] [address] Performed By: #### 23531-7, 83602-7 ####[facility] [id number] [place] [address] [place] ALT [Catalytic activity/Vol]26 U/LNormal7-38[facility] CampusCombeaumont hospital on above:Order Comment: Specimen Type: BLOOD SPECIMENOrdering Facility: [facility] Address:[address] [place], [place] [address]Performed By: #### 51104-7, 44581-7 ####[facility] LABCLIA [id number] [place] [address] [place] AMERICAAnion gap [Moles/Vol] 10 mmol/LNormal9-18[facility] on above:Order Comment: Specimen Type: BLOOD SPECIMENOrdering Facility: [facility] Address:[address] [place], [place] [address]Performed By: #### 76489-5, 26561-2 ####[facility] LABCLIA [id number] [place] [id number] [place] AMERICAAST [Catalytic activity/Vol]23 U/WBhfnki23-03JvkevzwdgSt. Mary'[facility], [facility]ont[facility] CampusComment on above:Order Comment: Specimen Type: BLOOD SPECIMENOrdering Facility: [facility] Address:[address] [place], [place] [address]Performed By: #### 99737-7, 03691-0 ####[facility] LABCLIA [id number] [place] [address] [place]ABilirubin [Mass/Vol]0.9 mg/dLNormal0.2-1.3 [facility] CampusComment on above:Order Comment: Specimen Type: BLOOD SPECIMENOrdering Facility: [facility] Address:[address] [place], [place] [address]Performed By: #### 76274-4, 48429-0 ####[facility] [id number] [place] [address] [place]ACalcium [Mass/Vol]9.0 mg/dLNormal8.5-10.2CRegency Hospital Company on above:Order Comment: Specimen Type: BLOOD SPECIMENOrdering Facility: [facility] Address:[address] [place], [place] [address]Performed By: #### 40481-9, 10719-2 ####[facility] [id number] [place] [id number] [place] AMERICAChloride [Moles/Vol]97 mmol/LJtxhgd05-098OboerejabSt. [facility] Comment on above:Order Comment: Specimen Type: BLOOD SPECIMENOrdering Facility: [facility] Address:[address] [place] [address] Performed By: #### 56931-4, 84118-7 ####[facility] LABCLIA [id number] [place] [address] [place] CO2 [Moles/Vol]29 mmol/TMpaoff78-58BncbashxqTuscarawas Hospital on above: Order Comment: Specimen Type: BLOOD SPECIMENOrdering Facility: [facility] Address:[address] [place], [place] [address]Performed By: #### 63990- 9, ####[facility] LABCLIA [id number] [facility] CENTERDeyanira [place] [address] [place] AMERICACreatinine [Mass/Vol] 1.02 mg/dLHigh0.58-0.96[facility] on above:Order Comment: Specimen Type: BLOOD SPECIMENOrdering Facility: [facility] Address:[address] [place], [place] [address]Performed By: #### 54249-6, ####[facility] [id number] [place] [address] [place]ICACreatinine and Glomerular filtration rate.predicted panel (S/P/Bld)57 mL/min/1.73m???Low>=60[facility] on above:Order Comment: Specimen Type: BLOOD SPECIMENOrdering Facility: [facility] Address:[address] [place], [place] [address]Result Comment: Estimated Glomerular Filtration Rate (eGFR) is calculated using the 2020 CKD-EPI creatinine equation. This equation utilizes serum creatinine, sex, and age as parameters. The creatinine assay has traceable calibration to isotope dilution-mass spectrometry. Refer to KDIGO guidelines for clinical interpretation. In patients with unstable renal function, e.g. those with acute kidney injury, the eGFR may not accurately reflect actual GFR.Performed By: #### 86289-0, 46520-3 ####[facility] LABCLIA [id number] [place] [address] [place] AMERICAGlucose [Mass/Vol]84 mg/oJCtmzjh83-85LieokqjibSt. [facility] Comment on above:Order Comment: Specimen Type: BLOOD SPECIMENOrdering Facility: [facility] Address:[address] [place], [place] [address]Result Comment: The [place] Diabetes [employer] (ADA) provides guidance for cutoff [...] Standards of Medical Care in Diabetes 2016, [place] [employer]. Diabetes Care. 2016.39(Suppl 1).Performed By: #### 83775-9, 14105-9 ####[facility] LABCLIA [id number] [place] [address] [place] AMERICAPotassium [Moles/Vol]3.4 mmol/LLow3.7-5.1COhioHealth Mansfield HospitalComment on above:Order Comment: Specimen Type: BLOOD SPECIMENOrdering Facility: [facility] Address:[address] [place], [place] [address]Performed By: #### 49922-9, ####[facility]CL[facility] [id number] [place] [address] [place] AMERICAProtein [Mass/Vol]5.7 g/dLLow6.3-8.0[facility] on above:Order Comment: Specimen Type: BLOOD SPECIMENOrdering Facility: [facility] Address:[address] [place], [place] [address]Performed By: #### 38070-7, ####[facility] LABCL[facility] [id number] [place] [address] [place]ICASodium [Moles/Vol]136 mmol/TRnwucl325-971VpycysnnbTuscarawas Hospital on above:Order Comment: Specimen Type: BLOOD SPECIMENOrdering Facility: [facility] Address:[address] [place], [place] [address]Performed By: #### 75015-5, 54309-8 ####[facility] LABCLIA [id number] [place] [address] [place] AMERICAUrea nitrogen [Mass/Vol]22 mg/dL High7-21St. [facility] Hospitalment on above:Order Comment: Specimen Type: BLOOD SPECIMENOrdering Facility: [facility] Address:[address] [place], [place] [address]Performed By: #### 89534-7, 54439-7 ####[facility] [id number] [place] [address] [place] AMERICAMagnesium SerPl-mCncon 27-80-9235Cbohlgvio [Mass/Vol]2.2 mg/dLNormal1.7-2.3CRegency Hospital Company on above:Order Comment: Specimen Type: BLOOD SPECIMENOrdering Facility: [facility] Address:[address] [place], [place] [address]Performed By: #### 13511- 9, 26261-0 ####[facility] [id number] [place] [facility] [place] [address] [place] AMERICAPOTASSIUM BLDon 27-63-4953Pklfwjgon [Moles/Vol]4.3 mmol/LNormal3.7-5.1COhioHealth [facility] Hospital Comment on above:Order Comment: Specimen Type: BLOOD SPECIMENOrdering Facility: [facility] Address:[address] [place] [address] Performed By: #### K1 ####[facility] LABCLIA [id number] [place] [address] [place] AMERICAUS KIDNEY/BLADDERon 74-74-7809WA KIDNEY/BLADDERNormalCBrown Memorial Hospital W Auto Differential panel (Bld)on 15-70-0740Agzcgruqg (Bld) [#/Vol]0.03 10*3/uL Normal<0.11COhioHealth Mansfield HospitalComment on above:Order Comment: Specimen Type: BLOOD SPECIMENOrdering Facility: [facility] Address:[address] [place], [place] [address]Performed By: #### 87664-5 ####[facility] LABCLIA [id number] [place] [address] [place] AMERICABasophils/100 WBC (Bld)0.4 %NormalTuscarawas Hospital on above:Order Comment: Specimen Type: BLOOD SPECIMENOrdering Facility: [facility] Address:[address] [place], [place] [address]Performed By: #### 73677-5 ####[facility] LABCLIA [id number] [place] [address] [place] Differential cell count method Nom (Bld)AutoNormalClevelAtrium Health Pineville Comment on above:Order Comment: Specimen Type: BLOOD SPECIMENOrdering Facility: [facility] Address:[address] [place] [address] Performed By: #### 31717-7 ####[facility]CL[facility] [id number] [place] [address] [place] Eosinophils (Bld) [#/Vol]0.03 10*3/uLNormal<0.46[facility] Comment on above:Order Comment: Specimen Type: BLOOD SPECIMENOrdering Facility: [facility] Address:[address] [place] [address] Performed By: #### 71655-0 ####[facility] LABCLIA [id number] [place] [address] [place] Eosinophils/100 WBC (Bld)0.4 %NormalSt. Mary'S Medical Center, Iront[facility] CampusCombeaumont hospital on above: Order Comment: Specimen Type: BLOOD SPECIMENOrdering Facility: [facility] Address:[address] [place], [place] [address]Performed By: #### 50836- 8 ####[facility] [id number] [place] [address] [place] AMERICAErythrocyte distribution width (RBC) [Ratio]12.7 %Zwiabt48.5-15.0[facility] on above: Order Comment: Specimen Type: BLOOD SPECIMENOrdering Facility: [facility] Address:[address] [place], [place] [address]Performed By: #### 89947- 8 ####[facility] [id number] [place] [address] [place] AMERICAHematocrit (Bld) [Volume fraction]40.4 %Wdntoi34.0-46.0[facility] on above:Order Comment: Specimen Type: BLOOD SPECIMENOrdering Facility: [facility] Address:[address] [place], [place] [address]Performed By: #### 51802- 8 ####[facility] [id number] [place] [address] [place] AMER[place]AHemoglobin (Bld) [Mass/Vol]13.2 g/jICcipld89.5-15.5CRegency Hospital Company on above:Order Comment: Specimen Type: BLOOD SPECIMENOrdering Facility: [facility] Address:[address] [place], [place] [address]Performed By: #### 26739-6 ####[facility] LAB[facility] [id number] [place] [address] [place] AMERICAImmature granulocytes (Bld) [#/Vol]10*3/uLNormal<0.10[facility] on above:Order Comment: Specimen Type: BLOOD SPECIMENOrdering Facility: [facility] Address:[address] [place], [place] [address]Performed By: #### 88728- 8 ####[facility] [id number] [place] [id number] [place] AMERICAImmature granulocytes/100 WBC (Bld)0.3 %NormalTuscarawas Hospital on above:Order Comment: Specimen Type: BLOOD SPECIMENOrdering Facility: [facility] Address:[address] [place], [place] [address]Performed By: #### 26374-7 ####[facility] LABCLIA [id number] [place] [address] [place] AMERICALymphocytes (Bld) [#/Vol]1.73 10*3/uLNormal1.00-4.00[facility] on above:Order Comment: Specimen Type: BLOOD SPECIMENOrdering Facility: [facility] Address:[address] [place], [place] [address]Performed By: #### 77934-8 ####[facility] LABCLIA [id number] [place] [address] [place] AMERICALymphocytes/100 WBC (Bld)23.4 % NormalTuscarawas Hospital on above:Order Comment: Specimen Type: BLOOD SPECIMENOrdering Facility: [facility] Address:[address] [place], [place] [address]Performed By: #### 13736-7 ####[facility] LABCLIA [id number] [place] [address] [place] AMERICAMCH (RBC) [Entitic mass]29.3 skYkjhso95.0-34.0[facility] on above:Order Comment: Specimen Type: BLOOD SPECIMENOrdering Facility: [facility] Address:[address] [place], [place] [address]Performed By: #### 60506-9 ####[facility]CL[facility] [id number] [place] [address] [place] MCHC (RBC) [Mass/Vol]32.7 g/zKAqvzsf32.5-36.0[facility] on above:Order Comment: Specimen Type: BLOOD SPECIMENOrdering Facility: [facility] Address:[address] [place] [address] Performed By: #### 06652-4 ####[facility] LABCL[facility] [id number] [place] [address] [place] MCV (RBC) [Entitic vol]89.8 uEEehbhr12.0-100.0[facility] on above:Order Comment: Specimen Type: BLOOD SPECIMENOrdering Facility: [facility] Address:[address] [place] [address] Performed By: #### 86828-7 ####[facility] [id number] [place] [address] [place] Monocytes (Bld) [#/Vol]0.77 10*3/uLNormal<0.87[facility] on above:Order Comment: Specimen Type: BLOOD SPECIMENOrdering Facility: [facility] Address:[address] [place] [address] Performed By: #### 72831-3 ####[facility] LABCL[facility] [id number] [place] [address] [place] Monocytes/100 WBC (Bld)10.4 %NormalTuscarawas Hospital on above: Order Comment: Specimen Type: BLOOD SPECIMENOrdering Facility: [facility] Address:[address] [place], [place] [address]Performed By: #### 39959- 8 ####[facility]CL[facility] [id number] [place] [address] [place] AMERICANeutrophils (Bld) [#/Vol]4.82 10*3/uLNormal1.45-7.50[facility] on above:Order Comment: Specimen Type: BLOOD SPECIMENOrdering Facility: [facility] Address:[address] [place], [place] [address]Performed By: #### 74121-2 ####[facility] LABCL[facility] [id number] [place] [address] [place] AMERICANeutrophils/100 WBC (Bld)65.1 % NormalTuscarawas Hospital on above:Order Comment: Specimen Type: BLOOD SPECIMENOrdering Facility: [facility] Address:[address] [place], [place] [address]Performed By: #### 84504-5 ####[facility] [id number] [place] [address] [place] AMERICANucleated RBC (Bld) [#/Vol]10*3/uLNormal<0.01[facility] on above:Order Comment: Specimen Type: BLOOD SPECIMENOrdering Facility: [facility] Address:[address] [place], [place] [address]Performed By: #### 97116-5 ####[facility] [id number] [place] [address] [place] Nucleated RBC/100 WBC (Bld) [Ratio]0.0 /100 WBCNormalCOhioHealth Mansfield Hospital Comment on above:Order Comment: Specimen Type: BLOOD SPECIMENOrdering Facility: [facility] Address:[address] [place] [address] Performed By: #### 21681-0 ####[facility] [id number] [place] [address] [place] Platelet mean volume (Bld) [Entitic vol]10.4 fLNormal9.0-12.7CRegency Hospital Company on above:Order Comment: Specimen Type: BLOOD SPECIMENOrdering Facility: [facility] Address:[address] [place], [place] [address]Performed By: #### 52182-7 ####[facility] [id number] [place] [address] [place] Platelets (Bld) [#/Vol]201 10*3/nDBfywwd551-645GavockbhjTuscarawas Hospital on above:Order Comment: Specimen Type: BLOOD SPECIMENOrdering Facility: [facility] Address:[address] [place] [address] Performed By: #### 57838-4 ####[facility] [id number] [place] [address] [place] RBC (Bld) [#/Vol]4.50 10*6/uLNormal3.90-5.20[facility] on above:Order Comment: Specimen Type: BLOOD SPECIMENOrdering Facility: [facility] Address:[address] [place], [place] [address]Performed By: #### 20660-5 ####[facility] [id number] [place] [address] [place] AMERICAWBC (Bld) [#/Vol]7.40 10*3/uLNormal3.70-11.00[facility] on above:Order Comment: Specimen Type: BLOOD SPECIMENOrdering Facility: [facility] Address:[address] [place], [place] [address]Performed By: #### 34698-1 ####[facility]ENTER[facility] [id number] [place] [address] [place] AMERICACNPNon 06-98-6354IOKIOqiibv St. Charles Hospitalprehensive metabolic 2000 panelon 35-99-2408Khgyzkb [Mass/Vol]3.8 g/dLLow3.9-4.9CRegency Hospital Company on above:Order Comment: Specimen Type: BLOOD SPECIMENOrdering Facility: [facility] Address:[address] [place], [place] [address]Performed By: #### 80106- 8 ####[facility] [id number] [place] [address] [place] AMERICAALP [Catalytic activity/Vol]61 U/EGzwzfs98-833CvbgktbzeTuscarawas Hospital on above:Order Comment: Specimen Type: BLOOD SPECIMENOrdering Facility: [facility] Address:[address] [place], [place] [address]Performed By: #### 94500-7 ####[facility] LABCLIA [id number] [place] [address] [place] AMERICAALT [Catalytic activity/Vol]34 U/LNormal7-38[facility] on above:Order Comment: Specimen Type: BLOOD SPECIMENOrdering Facility: [facility] Address:[address] [place], [place] [address]Performed By: #### 48224-8 ####[facility] LABCL[facility] [id number] [place] [address] [place] AMERICAAnion gap [Moles/Vol]8 mmol/LLow9-18[facility] on above:Order Comment: Specimen Type: BLOOD SPECIMENOrdering Facility: [facility] Address:[address] [place], [place] [address]Performed By: #### 89479-7 ####[facility] LABCL[facility] [id number] [place] [address] [place] AST [Catalytic activity/Vol]27 U/WByrqvf22-96BqfgdwebxTuscarawas Hospital on above:Order Comment: Specimen Type: BLOOD SPECIMENOrdering Facility: [facility] Address:[address] [place] [address] Performed By: #### 04943-1 ####[facility] LABCL[facility] [id number] [place] [address] [place] Bilirubin [Mass/Vol]0.7 mg/dLNormal0.2-1.3CRegency Hospital Company on above:Order Comment: Specimen Type: BLOOD SPECIMENOrdering Facility: [facility] Address:[address] [place], [place] [address]Performed By: #### 15861-2 ####[facility] LABCL[facility] [id number] [place] [address] [place] AMERICACalcium [Mass/Vol]9.2 mg/dLNormal8.5-10.2CRegency Hospital Company on above:Order Comment: Specimen Type: BLOOD SPECIMENOrdering Facility: [facility] Address:[address] [place], [place] [address]Performed By: #### 21209-3 ####[facility] LABCL[facility] [id number] [place] [address] [place] AMERICAChloride [Moles/Vol]97 mmol/L Bbqpio72-243XacqnpwgjTuscarawas Hospital on above:Order Comment: Specimen Type: BLOOD SPECIMENOrdering Facility: [facility] Address:[address] [place], [place] [address]Performed By: #### 59341-6 ####[facility] [id number] [place] [address] [place] AMERICACO2 [Moles/Vol]32 mmol/RYecy08-33ItlcyhdmsTuscarawas Hospital on above:Order Comment: Specimen Type: BLOOD SPECIMENOrdering Facility: [facility] Address:[address] [place], [place] [address]Performed By: #### 58616-4 ####[facility]CL[facility] [id number] [place] [address] [place] Creatinine [Mass/Vol]1.11 mg/dLHigh0.58-0.96[facility] on above:Order Comment: Specimen Type: BLOOD SPECIMENOrdering Facility: [facility] Address:[address] [place], [place] [address]Performed By: #### 53815-4 ####[facility] [id number] [place] [address] [place] AMERICACreatinine and Glomerular filtration rate.predicted panel (S/P/Bld)52 mL/min/1.73m???Low>=60 [facility] on above:Order Comment: Specimen Type: BLOOD SPECIMENOrdering Facility: [facility] Address:[address] [place], [place] [address]Result Comment: Estimated Glomerular Filtration Rate (eGFR) is calculated using the 2020 CKD-EPI creatinine equation. This equation utilizes serum creatinine, sex, and age as parameters. The creatinine assay has traceable calibration to isotope dilution-mass spectrometry. Refer to KDIGO guidelines for clinical interpretation. In patients with unstable renal function, e.g. those with acute kidney injury, the eGFR may not accurately reflect actual GFR.Performed By: #### [id number] ####[facility] LABIA [id number] [place] [address] [place] AMERICAGlucose [Mass/Vol]123 mg/tKFjsu75-67[facility]ucmvdnioSt. [facility] [facility], [place] CampusComment on above:Order Comment: Specimen Type: BLOOD SPECIMENOrdering Facility: [facility] Address:[address] [place], [place] [address]Result Comment: The [place] Diabetes Association (ADA) provides guidance for cutoff [...] Standards of Medical Care in Diabetes 2016, [place] Diabetes Association. Diabetes Care. 2016.39(Suppl 1).Performed By: #### 45905-5 ####[facility] LABIA [id number] [place] [id number] [place] AMERICAPotassium [Moles/Vol]3.7 mmol/LNormal3.7-5.1COhioHealth Mansfield Hospital Comment on above:Order Comment: Specimen Type: BLOOD SPECIMENOrdering Facility: [facility] Address:[address] [place] [address] Performed By: #### 63976-1 ####[facility] [id number] [place] [id number] [place] Protein [Mass/Vol]6.1 g/dLLow6.3-8.0[facility] on above: Order Comment: Specimen Type: BLOOD SPECIMENOrdering Facility: [facility] Address:[address] [place], [place] [address]Performed By: #### 35563- 8 ####[facility] LABCLIA [id number] [place] [address] [place] AMERICASodium [Moles/Vol]137 mmol/L Aljdlz943-975DesvknprtTuscarawas Hospital on above:Order Comment: Specimen Type: BLOOD SPECIMENOrdering Facility: [facility] Address:[address] [place], [place] [address]Performed By: #### 54084-4 ####[facility] [id number] [place] [address] [place] AMERICAUrea nitrogen [Mass/Vol]21 mg/dLNormal7-21[facility] on above:Order Comment: Specimen Type: BLOOD SPECIMENOrdering Facility: [facility] Address:[address] [place], [place] [address]Performed By: #### 86572-0 ####[facility] [id number] [place] [address] [place] AMERICADIGOXIN/LANOXINon 46-24-8318Lnsnudi [Mass/Vol]1.1 ng/mLNormal0.6-1.2 [facility] on above:Order Comment: Specimen Type: BLOOD SPECIMENOrdering Facility: [facility] Address:[address] [place], [place] [address]Result Comment: Provided therapeutic concentrations are based on the 2008 ESC Guidelines for the Diagnosis and Treatment of Acute and Chronic Heart Failure.Reference ranges and high/low indicator flags are provided as general guidelines only. The treating physician must determine appropriate targetlevels/dosing based on the specific clinical situation.Performed By: #### DIG ####[facility] LABCLIA [id number] [place] [address] [place] AMERICAHISTORY PHYSICALon 08-24-2023 HISTORY PHYSICALNormalCOhioHealth Mansfield HospitalURINALYSIS, DIPSTICK ONLYon 60-50-2197Dmmuedpng Ql (U)NegativeNormalNegativeSt. [facility] [facility] Comment on above:Order Comment: Specimen Type: URINE SPECIMENOrdering Facility: [facility] Address:[address] [place] [address] Performed By: #### UA ####[facility] LABCLIA [id number] [place] [address] [place] AMERICAClarity (Unsp spec)CloudyAbnormalClearCOhioHealth Mansfield HospitalCombeaumont hospital on above:Order Comment: Specimen Type: URINE SPECIMENOrdering Facility: [facility] Address:[address] [place], [place] [address]Performed By: #### UA ####[facility] LABCLIA [id number] [place] [address] [place] AMERICAColor (U)YellowNormalYWilson Street Hospital on above:Order Comment: Specimen Type: URINE SPECIMENOrdering Facility: [facility] Address:[address] [place], [place] [address]Performed By: #### UA ####[facility] LABCLIA [id number] [place] [address] [place] AMERICAGlucose Test strip (U) [Mass/Vol]NegativeNormalNegMercy Health Anderson Hospital on above:Order Comment: Specimen Type: URINE SPECIMENOrdering Facility: [facility] Address:[address] [place], [place] [address]Performed By: #### UA ####[facility] LABCLIA [id number] [place] [address] [place] Hemoglobin Ql (U)TraceAbnormalNegMercy Health Anderson Hospital on above:Order Comment: Specimen Type: URINE SPECIMENOrdering Facility: [facility] Address:[address] [place], [place] [address]Performed By: #### UA ####[facility] LABCLIA [id number] [place] [address] [place] POMERENE HOSPITALKetones Ql (U)TraceAbnormal NegativeTuscarawas Hospital on above:Order Comment: Specimen Type: URINE SPECIMENOrdering Facility: [facility] Address:[address] [place], [place] [address]Performed By: #### UA ####[facility] LABCLIA [id number] [place] [address] [place] AMERICALeukocyte esterase Test strip Ql (U)1+AbnormalNegativeTuscarawas Hospital on above:Order Comment: Specimen Type: URINE SPECIMENOrdering Facility: [facility] Address:[address] [place], [place] [address]Performed By: #### UA ####[facility]CLIA [id number] [place] [address] [place] AMERICANitrite Ql (U)NegativeNormalNegativeTuscarawas Hospital on above:Order Comment: Specimen Type: URINE SPECIMENOrdering Facility: [facility] Address:[address] [place], [place] [address]Performed By: #### UA ####[facility] LABCLIA [id number] [place] [address] [place] POMERENE HOSPITALpH (U)5.5 [pH]Normal<8.5CRegency Hospital Company on above:Order Comment: Specimen Type: URINE SPECIMENOrdering Facility: [facility] Address:[address] [place], [place] [address]Performed By: #### UA ####[facility] LABCLIA [id number] [place] [address] [place] AMERICAProtein (U) [Mass/Vol]1+AbnormalNegativeSt. [facility] [facility] Comment on above:Order Comment: Specimen Type: URINE SPECIMENOrdering Facility: [facility] Address:[address] [place] [address] Performed By: #### UA ####[facility] [id number] [place] [address] [place] POMERENE HOSPITALSpecific gravity (U) [Rel density]1.583Gyedfr9.005-1.030[facility] on above:Order Comment: Specimen Type: URINE SPECIMENOrdering Facility: [facility] Address:[address] [place] [address] Performed By: #### UA ####[facility] [id number] [place] [address] [place] POMERENE HOSPITALUrobilinogen Ql (U)1.0 EU/dLNormal0.2-1.0 EU/dLTuscarawas Hospital on above:Order Comment: Specimen Type: URINE SPECIMENOrdering Facility: [facility] Address:[address] [place], [place] [address]Performed By: #### UA ####[facility] [id number] [address]CBC panel Auto (Bld)on 08-23-2023 Erythrocyte distribution width (RBC) [Ratio]12.9 %Dthnct73.5-15.0[facility] on above:Order Comment: Specimen Type: BLOOD SPECIMENOrdering Facility: [facility] Address:[address] [place], [place] [address]Performed By: #### 91235-9 ####[facility] LAB[facility] [id number] [address] STATES [facility] IMMIGRANT HOSPITALHematocrit (Bld) [Volume fraction]43.4 %Yzhlev98.0-46.0[facility] on above:Order Comment: Specimen Type: BLOOD SPECIMENOrdering Facility: [facility] Address:[address] [place], [place] [address]Performed By: #### 02829-9 ####[facility] LABPOR[facility] [id number] [address] [address] [address] [place] Hemoglobin (Bld) [Mass/Vol]14.4 g/cTQhznzg49.5-15.5COhioHealth Mansfield Hospital Comment on above:Order Comment: Specimen Type: BLOOD SPECIMENOrdering Facility: [facility] Address:[address] [place] [address] Performed By: #### 90420-9 ####[facility] [id number] [place] [address] [place] MCH (RBC) [Entitic mass]30.[address]ts83[address]34[address] Charles Hospitalment on above:Order Comment: Specimen Type: BLOOD SPECIMENOrdering Facility: [facility] Address:[address] [place] [address] Performed By: #### 71327-9 ####[facility] [id number] [place] [address] [place] MCHC (RBC) [Mass/Vol]33.2 g/oFFlxmmw09.5-36.0St. Charles Hospitalment on above:Order Comment: Specimen Type: BLOOD SPECIMENOrdering Facility: [facility] Address:[address] [place] [address] Performed By: #### 89477-5 ####[facility] [id number] [place] [address] [place] MCV (RBC) [Entitic vol]91.4 rHTcpmie47.0-100.0[facility] on above:Order Comment: Specimen Type: BLOOD SPECIMENOrdering Facility: [facility] Address:[address] [place] [address] Performed By: #### 26301-3 ####[facility] [id number] [place] [address] [place] Nucleated RBC (Bld) [#/Vol]10*3/uLNormal<0.01[facility] on above:Order Comment: Specimen Type: BLOOD SPECIMENOrdering Facility: [facility] Address:[address] [place] [address] Performed By: #### 51776-9 ####[facility] LABCLIA [id number] [place] [address] [place] Platelet mean volume (Bld) [Entitic vol]10.5 fLNormal9.0-12.7CRegency Hospital Company on above:Order Comment: Specimen Type: BLOOD SPECIMENOrdering Facility: [facility] Address:[address] [place], [place] [address]Performed By: #### 05691-6 ####[facility] LABCLIA [id number] [place] [address] [place] Platelets (Bld) [#/Vol]215 10*3/bQJtzcsr015-139SzclvmdpvTuscarawas Hospital on above:Order Comment: Specimen Type: BLOOD SPECIMENOrdering Facility: [facility] Address:[address] [place] [address] Performed By: #### 11459-5 ####[facility] LABCLIA [id number] [place] [address] [place] RBC (Bld) [#/Vol]4.75 10*6/uLNormal3.90-5.20[facility] on above:Order Comment: Specimen Type: BLOOD SPECIMENOrdering Facility: [facility] Address:[address] [place], [place] [address]Performed By: #### 13845-6 ####[facility] [id number] [place] [address] [place] AMERICAWBC (Bld) [#/Vol]6.24 10*3/uLNormal3.70-11.00[facility] on above:Order Comment: Specimen Type: BLOOD SPECIMENOrdering Facility: [facility] Address:[address] [place], [place] [address]Performed By: #### 71013-5 ####[facility] [id number] [place] [address] [place] AMERICACNOVon 50-52-[address]JVTAHqicic [address] CampusCNOVNormalCOhioHealth Mansfield HospitalCREATININE BLDon 93-74-6627Gskopcgvyn [Mass/Vol]0.97 mg/dLHigh0.58-0.96[facility] Comment on above:Order Comment: Specimen Type: BLOOD SPECIMENOrdering Facility: [facility] Address:[address] [place] [address] Performed By: #### CRET1 ####[facility] [id number] [place] [address] [place] [facility] HOSPITALCreatinine and Glomerular filtration rate.predicted panel (S/P/Bld)61 mL/min/1.73m???Normal >=60[facility] on above:Order Comment: Specimen Type: BLOOD SPECIMENOrdering Facility: [facility] Address:[address] [place], [place] [address]Result Comment: Estimated Glomerular Filtration Rate (eGFR) is [...] accurately reflect actual GFR.Performed By: #### CRET1 ####[facility] [id number] [place] [address] [place] AMERICACTA CHEST (GATED) W IVCONon 31-40-2344IJX CHEST (GATED) W IVCONNormal [facility] CampusComprehensive metabolic 2000 panelon 52-91-9108Bjrfqej [Mass/Vol]4.4 g/dLNormal3.9-4.9COhioHealth Mansfield HospitalCombeaumont hospital on above:Order Comment: Specimen Type: BLOOD SPECIMENOrdering Facility: [facility] Address:[address] [place] [address]Performed By: #### 44234- 8, 45851-9 ####[facility] LABCLIA [id number] [place] [address] [address] [place] AMERICAALP [Catalytic activity/Vol]66 U/SWhhsvl96-155SngxoflzlTuscarawas Hospital on above:Order Comment: Specimen Type: BLOOD SPECIMENOrdering Facility: [facility] Address:[address] [place], [place] [address]Performed By: #### 23162- 8, 47822-9 ####[facility] LABCLIA [id number] [place] [address] [place] AMERICAALT [Catalytic activity/Vol]40 U/LHigh7-38[facility] on above:Order Comment: Specimen Type: BLOOD SPECIMENOrdering Facility: [facility] Address:[address] [place], [place] [address]Performed By: #### 06550- 8, 46142-4 ####[facility]CLIA [id number] [place] [address] [place] AMERICAAnion gap [Moles/Vol]9 mmol/LNormal9-18[facility] on above:Order Comment: Specimen Type: BLOOD SPECIMENOrdering Facility: [facility] Address:[address] [place], [place] [address]Performed By: #### 42821-6, 52199-6 ####[facility] LABCLIA [id number] [place] [address] [place] AMERICAAST [Catalytic activity/Vol]31 U/APicbwu59-53TriwzrgmsTuscarawas Hospital on above:Order Comment: Specimen Type: BLOOD SPECIMENOrdering Facility: [facility] Address:[address], [place] [address]Performed By: #### 23154-2, 57300-5 ####[facility] LABCLIA [id number] [facility] [address] [place] AMERICABilirubin [Mass/Vol]0.8 mg/dLNormal0.2-1.3 [facility] CampusCombeaumont hospital on above:Order Comment: Specimen Type: BLOOD SPECIMENOrdering Facility: [facility] Address:[address] [place], [place] [address]Performed By: #### 32206-9, 74544-8 ####[facility]CLIA [id number] [place] [address] [place] AMERICACalcium [Mass/Vol]9.8 mg/dLNormal8.5-10.2CRegency Hospital Company on above:Order Comment: Specimen Type: BLOOD SPECIMENOrdering Facility: [facility] Address:[address] [place], [place] [address]Performed By: #### 58028-3, 89392-1 ####[facility] LABCLIA [id number] [place] [address] [place] AMERICAChloride [Moles/Vol]98 mmol/IBxfesc80-907MbcbfuowqSt. [facility] Comment on above:Order Comment: Specimen Type: BLOOD SPECIMENOrdering Facility: [facility] Address:[address] [place] [address] Performed By: #### 96126-0, 70034-9 ####[facility]CL[facility] [id number] [place] [address] [place] CO2 [Moles/Vol]32 mmol/TCnxc63-25JvyzrqbkwTuscarawas Hospital on above: Order Comment: Specimen Type: BLOOD SPECIMENOrdering Facility: [facility] Address:[address] [place], [place] [address]Performed By: #### 52201- 8, 10954-1 ####[facility] LABCLIA [id number] [place] [address] [place] AMERICACreatinine [Mass/Vol] 0.98 mg/dLHigh0.58-0.96[facility] ClevelandComment on above:Order Comment: Specimen Type: BLOOD SPECIMENOrdering Facility: [facility] Address:[address] [place] [address]Performed By: #### 86715-6, 51219-9 ####[facility]CLIA [id number] [place] [address] [place] AMERICACreatinine and Glomerular filtration rate.predicted panel (S/P/Bld)60 mL/min/1.73m???Normal>=60[facility] CampusComment on above:Order Comment: Specimen Type: BLOOD SPECIMENOrdering Facility: [facility] Address:[address] [place], [place] [address]Result Comment: Estimated Glomerular Filtration Rate (eGFR) is calculated using the 2020 CKD-EPI creatinine equation. This equation utilizes serum creatinine, sex, and age as parameters. The creatinine assay has traceable calibration to isotope dilution-mass spectrometry. Refer to KDIGO guidelines for clinical interpretation. In patients with unstable renal function, e.g. those with acute kidney injury, the eGFR may not accurately reflect actual GFR.Performed By: #### 60921-2, 47992-9 ####[facility] LABCLIA [id number] [place] [address] [place] AMERICAGlucose [Mass/Vol]127 mg/pYGqbl42-91LnkhgsvwuSt. [facility] Comment on above:Order Comment: Specimen Type: BLOOD SPECIMENOrdering Facility: [facility] Address:[address] [place], [place] [address]Result Comment: The [place] Diabetes Association (ADA) provides guidance for cutoff [...] Standards of Medical Care in Diabetes 2016, [place] [employer]. Diabetes Care. 2016.39(Suppl 1).Performed By: #### 53684-8, 43293-7 ####[facility]CLIA [id number] [place] [address] [place] AMERICAPotassium [Moles/Vol]4.1 mmol/LNormal3.7-5.1CRegency Hospital Company on above:Order Comment: Specimen Type: BLOOD SPECIMENOrdering Facility: [facility] Address:[address] [place], [place] [address]Performed By: #### 28518-1, 45674-6 ####[facility]CL[facility] [id number] [place] [address] [place] AMERICAProtein [Mass/Vol]6.8 g/dLNormal6.3-8.0[facility] on above:Order Comment: Specimen Type: BLOOD SPECIMENOrdering Facility: [facility] Address:[address] [place] [address] Performed By: #### 21964-5, 26658-1 ####[facility]CL[facility] [id number] [place] [address] [place] Sodium [Moles/Vol]139 mmol/WJnwyve907-980GsmphatkhTuscarawas Hospital on above:Order Comment: Specimen Type: BLOOD SPECIMENOrdering Facility: [facility] Address:[address] [place], [place] [address]Performed By: #### 92663-3, 92037-5 ####[facility] [id number] [place] [address] [place] AMERICAUrea nitrogen [Mass/Vol]17 mg/dLNormal7-21[facility] on above:Order Comment: Specimen Type: BLOOD SPECIMENOrdering Facility: [facility] Address:[address] [place], [place] [address]Performed By: #### 49358- 8, 03842-0 ####[facility] LABCLIA [id number] [place] [address] [place] OQZGRDRSVH18dy 79-22-0665FAF23 NormalSt. Mary'S Medical Center, [facility] CampusNT-proBNP SerPl-mCncon 76-35-7714Udfjtenjoal peptide.B prohormone N-Terminal [Mass/Vol]3265 pg/mLHigh<450St. [facility] CampusComment on above:Order Comment: Specimen Type: BLOOD SPECIMENOrdering Facility: [facility] Address:[place], [place] [address]Performed By: #### 12116-8, 23346-1 ####[facility] LABCLIA [id number] [place] [address] [place] AMERICARIGHT HEART CATH REPORTon 58-59-6620WSCJQ HEART CATH REPORTNormal St[facility] CampusUS CAROTID ARTERIES DAWSON VAS LABon 62-47-4372ZM CAROTID ARTERIES DAWSON VAS LABNormalCOhioHealth Mansfield HospitalCNPNon 33-02-4231XIQZQmxbbt St[facility] CampusCNPNon 17-99-8178KJSGPuujgiZpbbmmjpy [facility] [place] Outside Cardiovascularon 52-15-5588Puskpov Cardiovascular [id number]#1.00TIFFLakeHealth TriPoint Medical CenterProgress Note-Physicianon 19-10-2814Lhwtofcz Note-Physician [id number]#1.00TIFFNoAultman Alliance Community HospitalEchocardiogram-Transesophagealon 20-61-2745Bcdaroruqwmlro-Transesophageal [id number]#1.00TIFFNormBlanchard Valley Health SystemCNPNon 36-30-4458KEWBQjuqzmKurphzyga Clinic ClevelandDischarge Instructionson 42-35-3412Poeeszfnn Instructions [id number]#1.00TIFFNoAultman Alliance Community HospitalFormson 29-[id number]#1.00TIFF [facility] Medical CenterConsent for Treatmenton 97-31-3463Gdkkjmu for [id number]#1.00TIFFNormBlanchard Valley Health SystemInpatient Clinical Summaryon 09-12-4730Nzwvnpnxx Clinical Summary [address] [address] Clinical Summary Person Information: Name: HARJIT ASENCIO I Age: 73 Years : 1950 Sex: Female PCP: Peggy Nazario MD Marital Status: Race: White Ethnicity: Non- or Language: Danish Visit Id: Visit Reason: I51.9, I42.8 Speciality: Acuity: Enc Type: Ambulatory/Same Day Surgery Med Service: Surgery Arrival: 07/21/2023 06:33:24 Discharge: Dispo Type: Address: [address] [place] [address] [address] [facility] [phone] Provider Notes: Diagnosis: Problems Active Urethral stricture [...] up: With: Address: When: Johan HENRIQUEZ [address] [place], [place] [phone] Business (1) Comments: -After your appointment with CC Type Location Start [facility] Office Visit [facility] Shira 01/24/2024 2:30 PM 01/24/2024 2:45 PM Confirmed Patient Education Information: CV - Post-Transesophageal Echocardiogram (Custom)[facility] CenterInpatient Patient Summaryon 65-70-1145Zaxngglbd Patient Summary [address] [address] Patient Discharge Instructions PERSON INFORMATION Name: HARJIT [...] Follow up: With: Address: When: Johan HENRIQUEZ [address] [place] [address] [place] [phone] [facility] (1) Comments: -After your appointment with CC In the event that this physician does not participate in your insurance network, please consult with your insurance company to find a nearby participating provider. Type Location Start [facility] Office Visit [facility] Shira 01/24/2024 2:30 PM 01/24/2024 2:45 [...] Refills: 0. Pharmacy Information: [facility] Comment: PATIENT EDUCATION INFORMATION Instructions: [place], [place] POST-TRANSESOPHAGEAL ECHOCARDIOGRAM AFTER THE PROCEDURE: Diet: ? May eat/drink and/or take normal daily medications after 10:45 Activity: ? You should have someone stay with you for the next (more content not included)...[facility] Medical CenterPatient Education - Texton 39-06-2523Xtpargc [place] POST-TRANSESOPHAGEAL ECHOCARDIOGRAM AFTER THE PROCEDURE: Diet: [...] Seek Medical Care if: ? Notify your labor specialist should you have any difficulty swallowing or coughing up blood. ? In the event you are unable to reach your labor specialist, please call Timothy Ng at [phone] and the gear hobber operator will assist you.[facility] Medical CenterReferrals Officeon 46-62-0234Hpslcsnub Office [id number]#1.00TIFCleveland Clinic Children's Hospital for RehabilitationConsent for Procedure/Surgeryon 08-31-3055Gqogqrv for Procedure/Surgery [id number]#1.00Core[facility] HospitalConsent for Treatmenton 08-93-1753Wtyfmdj for Treatment [id number]#1.00[facility] HospitalHeart and Vascular Office/Clinic Noteon 95-26-8315Cnylt and Vascular Office/Clinic NoteHistory of Present Illness [...] and confirmed by markedlyelevated V wave on [place]-Lois catheter wedge pressure tracing. 5. Normal left [...] The patient wishes to go to the [facility] for mitral and tricuspid valve [...] urinary stream Renal le (more content not included)...[facility] TriPoint Medical CenterComment on above:Result Comment: Electronically Signed By: MARTINEZ MCMAHON, Johan Patino\.br\Date and Time Signed: 07/20/23 10:38 ESTPhysician Orderon 76-59-9215Tnasflcok Order [id number]#1.00TIFFNoAultman Alliance Community HospitalAmbulatory Visit Summaryon 97-81-2307Qnnkewwafm Visit Summary HARJIT ASENCIO I :1950 Visit [...] Micheline BROOKS MD Where: [facility] Educationon 58-57-8309Luesdrf EducationUrology Urodynamic Testing Urodynamic tests are done [...] including vitamins, herbs, eye drops, creams, and djpt-vsj-kpqevbx medicines. ? Whether you are or may [...] will my results be (more content not included)...[facility] CenterU[facility] Office/Clinic Noteon 94-23-4777Rvddzwl Office/Clinic Note Chief Complaint f/u for urinary retention HPI Staff Pt was last seen on 04/26/23. Pt was seen at [facility] on 07/07/23. Pt had Robles. placed at [...] of incomplete bladder emptying) Pt presented to [facility] ED 07/03/23 due to urinary retention. Robles [...] [facility] [address], [place] [address]- Additional Instructions: 6 mos Patient Education Urodynamic [...] 1 tab(s), Oral, BID (more content not included)...[facility] CenterComment on above: Result Comment: Electronically Signed By: Micheline BROOKS MD\.br\Date and Time Signed: 07/19/23 16:01 EST\.br\Electronically Co-Signed By: Felisa Bautista\.br\Date and Time Co-Signed: 07/19/23 15:59 ESTCoding Queryon 46-88-5545Glzwjy Query From: Natalya Ansari To: Nahid SERRATO MD; Sent: 07/14/2023 12:05:07 EST ! Subject: Coding Query Dr Serrato, In your Progress notes you list- 4. Elevated troponin Secondary to type 2 non-ST segment elevation myocardial infarction from above and mild cad The ekg nor echo showed SC and the Cardiology consult didn't mention it and his recommendations were reviewed and agreed with. Was the SC type II ruled out or should that be coded? Thank you Fiona VERGARA Coding From: Nahid SERRATO MD To: Natalya Ansari; Sent: 07/17/2023 12:28:48 EST Subject: RE: Coding Query Caller Name: HARJIT ASENCIO I; Caller Number: H Type 2 acute NSTEMI due to demand ischemia from A-FIB with RVR. (POA)[facility] CenterED Note-Physicianon 65-31-2420CA Note-PhysicianBasic Information Time Seen: Jeff Cross DO 07/07/2023 09:00 Chief Complaint discharged yesterday from [facility], reports can't breathe w/exertion History of Present [...] HENRIQUEZ In 3 days 07/10/2023 EST [address] [place] [address]- [phone] Business (1) Additional Instructions: Peggy Bermudezby In 3 days 07/10/[address] [place] [address]- Business(1) Additional Instructions (more content not included)...[facility] CenterComment on above:Result Comment: Electronically Signed By: Noe Lopez\.br\Date and Time Signed: 07/07/2315:56 EST\.br\Electronically Co- Signed By: Jeff Cross DO\.br\Date and Time Co-Signed: 07/15/23 06:59 EST Cardiovascular Reporton 56-08-6414Asekszwxhkvhcm Report [id number]#2.00TIFFLakeHealth TriPoint Medical CenterNursing Assessmenton 86-14-7249Aghcahe Assessment [id number]#1.00TIFCleveland Clinic Children's Hospital for RehabilitationDischarge Instructionson 76-39-7118Zffjepszs Instructions [id number]#1.00TIFFNoAultman Alliance Community HospitalAuto Diffon 31-78-3931Ayvaxnqpe/100 WBC (Bld)0.6 %Normal0.0-2.0[facility]field HospitalComment on above:Order Comment: Order Added by Discern Expert.Performed By: #### 4275164, 49041488, 3475166, 8929232, 5194146, 0177535 #### [facility] [address], [place] [address]Gfumfnbij/Leukocytes Auto (Bld) [Pure # fraction]0.0 E9/LNormal 0.0-0.2Fisher [facility] Cross HospitalComment on above:Order Comment: Order Added by Discern Expert.Performed By: #### 6678606, 25163040, 6539328, 0976754, 6899487, 1665719 #### [facility] [address] [place] [address] 51526Ieyqggylync/100 WBC (Bld)1.5 %Normal0.0-8.0[facility] HospitalComment on above:Order Comment: Order Added by Discern Expert.Performed By: #### 9798474, 06613424, 8376888, 0558092, 5726761, 2124499 #### [facility] [address] [place] [address] 53702Fdynxtmfdvv/Leukocytes Auto (Bld) [Pure # fraction]0.1 E9/L Normal0.0-0.5FPremier Health Atrium Medical CenterComment on above:Order Comment: Order Added by Valeria Expert.Performed By: #### 7546688, 33823096, 0899197, 4839846, 9562644, 0119939 #### [facility] [address] [place] [address] 71745Rvxyhdlmkvo/100 WBC (Bld)15.3 %Tqtvvo04.0-50.0[facility] HospitalComment on above:Order Comment: Order Added by Valeria Expert. Performed By: #### 1437479, 18917049, 5966622, 4807469, 4710632, 6195852 #### [facility] [address] [place] [address] 83983Pgwnsgyozqi/Leukocytes Auto (Bld) [Pure # fraction]1.2 E9/L Normal1.0-4.0[facility] HospitalComment on above:Order Comment: Order Added by Valeria Expert.Performed By: #### 8220508, 52146145, 9959452, 8886575, 6121548, 0663468 #### [facility] [address] [place] [address] 61020Guojcapir/100 WBC (Bld)6.4 %Normal4.0-14.0[facility] HospitalComment on above:Order Comment: Order Added by Discern Expert.Performed By: #### 6382697, 71229665, 5612326, 2509575, 6705853, 0624753 #### [facility] [address] [place] [address] 43749Ettnurfff/Leukocytes Auto (Bld) [Pure # fraction]0.5 E9/LNormal 0.2-1.0[facility] HospitalComment on above:Order Comment: Order Added by Discern Expert.Performed By: #### 9022091, 58648119, 2939101, 4211187, 5292618, 7189565 #### [facility] [address] [place] [address] 95171Msfrqkpkezr/100 WBC (Bld)76.2 %High36.0-75.0[facility] HospitalComment on above:Order Comment: Order Added by Discern Expert. Performed By: #### 2294948, 26983688, 4121099, 1118490, 7757752, 1215967 #### [facility] [address] [place] [address] 43697Llhutlhopjk/Leukocytes Auto (Bld) [Pure # fraction]6.1 E9/L Normal2.0-7.5FPremier Health Atrium Medical CenterComment on above:Order Comment: Order Added by Discern Expert.Performed By: #### 8182107, 86688017, 8670794, 5242575, 7338133, 3483241 #### [facility] [address] [place] [address] 80791IMDfk 10-40-4654Ftvsfbynfg [Mass/Vol]0.8 mg/dLNormal0.5-1.3 [facility] HospitalComment on above:Performed By: #### 8943356, 33821747, 9071291, 5450004, 6192484, 2295669 #### [facility] [address] [place] [address] 42021Rqbx nitrogen [Mass/Vol]13 mg/dLNormal5-21M[facility] HospitalComment on above:Performed By: #### 6324651, 74406828, 9446782, 9102605, 1015473, 9623104 #### [facility] [address], [place] [address]Shis nitrogen/Creatinine [Mass ratio]16 No ByukeDaqrte21-29 [facility] HospitalComment on above:Performed By: #### 3690730, 28637933, 5226178, 7130136, 4255202, 4494068 #### [facility] [address], [place] [address]Zmoep gap [Moles/Vol]14 mmol/LNormal6-16[facility] HospitalComment on above:Performed By: #### 6208976, 15168645, 3851726, 8337781, 1837414, 4181770 #### [facility] [address] [place] [address] 28146Clnveah [Mass/Vol]8.7 mg/dLLow8.9-11.1FPremier Health Atrium Medical CenterComment on above:Performed By: #### 7143468, 80874902, 0915908, 3594124, 0468725, 4449708 #### [facility] [address], [place] [address]Twkwurje [Moles/Vol]100 mmol/BPis192-462DrahmoMansfield HospitalComment on above:Performed By: #### 1351119, 24889218, 0653830, 4984687, 6639065, 0715034 #### [facility] [address], [place] [address]NG9 [Moles/Vol]26 mmol/KOwhohg18-64WjqaekMansfield Hospital Comment on above:Performed By: #### 8209769, 71252420, 6598748, 7978218, 6231279, 7458860 #### [facility] [address], [place] [address]Quomueo [Mass/Vol]137 mg/nZFlojgp52-512VozstiMansfield HospitalComment on above:Result Comment: If this glucose result represents a fasting glucose, interpretation should refer tothe following reference range: 55-99 mg/dLPerformed By: #### 5736369, 71440279, 3886056, 8151593, 8286725, 3296683 #### [facility] [address] [place] [address] 432[address]Hvldsniiy [Moles/Vol]4.3 mmol/LNormal3.5-5.3FPremier Health Atrium Medical CenterComment on above:Performed By: #### 0560187, 56779262, 0846600, 4482575, 5254715, 0762511 #### [facility] [address] [place] [address] 097[address]Ogcysd [Moles/Vol]136 mmol/ISfesyn339-499OgizjiMansfield HospitalComment on above:Performed By: #### 6085628, 49213346, 1500455, 5364668, 5548970, 5412632 #### [facility] [address] [place] [address] 23449LMQtn 07-29-4901Bkenwcrbctm peptide B (Bld) [Mass/Vol]756 pg/mL High5-80M[facility] HospitalComment on above:Performed By: #### 1166495, 19000475, 8927006, 5102163, 1331996, 2408079 #### [facility] [address] [place] [address] 76[address]UAD w/ Auto Diffon 21-32-9777Apvgqxwjzlg distribution width (RBC) [Ratio]13.8 %Dqntaq03.9-14.2FPremier Health Atrium Medical CenterComment on above: Performed By: #### 7938582, 35334823, 3719613, 8944093, 3022398, 8042283 #### [facility] [address] [place] [address] 063[address]Blydhmnxln (Bld) [Volume fraction]40.3 %Burraw33.0-46.0M[facility]field HospitalComment on above:Performed By: #### 1015101, 28815733, 5408406, 9100507, 6125632, 3807008 #### [facility] [address], [place] [address]Kyuntwgbcj (Bld) [Mass/Vol]13.0 g/hDRjxmvd83.0-16.0[facility] HospitalComment on above:Performed By: #### 4967169, 41011371, 2026055, 8803785, 7608076, 4749755 #### [facility] [address] [place] [address] 60493GAC (RBC) [Entitic mass]29.2 nmZaulot71.0-34.0[facility] HospitalComment on above:Performed By: #### 7166586, 68148690, 5997954, 9480261, 1091113, 3142515 #### [facility] [address] [place] [address] 43506QPFB (RBC) [Mass/Vol]32.3 g/hWJthdke05.4-36.0[facility] HospitalComment on above:Performed By: #### 7238649, 76608401, 2354822, 6496178, 4651654, 6513610 #### [facility] [address] [place] [address] 62207EEA (RBC) [Entitic vol]90.2 zCTkmqgb57.0-100.0M[facility] HospitalComment on above:Performed By: #### 4073965, 56482974, 0618607, 5913701, 6487910, 8501981 #### [facility] [address] [place] [address] 49897Icliffcj mean volume (Bld) [Entitic vol]8.5 fLNormal6.4-10.8 [facility] HospitalComment on above:Performed By: #### 2356992, 81652001, 6426757, 4995432, 6987846, 0836778 #### [facility] [address] [place] [address] 85133Lxncoqcoq (Bld) [#/Vol]291.0 E9/YXogpkn983.0-500.0[facility] HospitalComment on above:Performed By: #### 8377960, 98223904, 0806880, 1743460, 5548379, 9244265 #### [facility] [address], [place] [address]VTT (Bld) [#/Vol]4.5 E12/LNormal4.3-5.9[facility] HospitalComment on above:Performed By: #### 4570350, 58543931, 7767178, 5272373, 0224137, 0265538 #### [facility] [address], [place] [address]VJO corrected for nucl RBC Auto (Bld) [#/Vol]8.0 E9/LNormal 4.0-11.0[facility] HospitalComment on above:Performed By: #### 2079415, 20844747, 2584710, 9045924, 5705309, 0039268 #### [facility] [address], [place] [address]WITXEMTPOAwdmgtx By: SYSTEM SYSTEM on 60-91-7942Axgvjwtw I.cardiac [Mass/Vol]42.10 pg/mLInvalid Interpretation Code10.10 - 27.10 [...] mg/dLLow8.9 - 11.1 mg/dLFTMC RemisolChloride [Moles/Vol]100 mmol/L Bie097 - 111 mmol/LFTMC RemisolCO2 [Moles/Vol]26 mmol/BShftcx57 - 31 mmol/LFTMC RemisolCreatinine [Mass/Vol]0.8 mg/dLNormal0.5 - 1.3 mg/dLFT RemisolGFR/1.73 sq M.predicted among non-blacks MDRD (S/P/Bld) [Vol rate/Area]77 mL/min/1.73 m2 Normal>=59mL/min/1.73 m2FT Chem SComment on above:Interpretive Data: Chronic kidney disease could be indicated at eGFR's of less than 60 mL/min/1.73m2. Kidney failure is indicated at less than 15 mL/min/1.73m2.Glucose [Mass/Vol]137 mg/jEOadfsa34 - 199 mg/dLFT RemisolComment on above:Interpretive Data: If this glucose result represents a fasting glucose, interpretation should referto the following reference range: 55-99 mg/dLPotassium [Moles/Vol]4.3 mmol/LNormal3.5 - 5.3 mmol/LFTMC RemisolSodium [Moles/Vol]136 mmol/KFuqcxj314 - 145 mmol/LFTMC RemisolTroponin I.cardiac [Mass/Vol]39.60 pg/mLInvalid [...] Sensitivity Troponin I Instructions For Use, [place]arly[place], March 2018)Urea nitrogen [Mass/Vol]13 mg/dLNormal5 - 21 mg/dLFT RemisolUrea nitrogen/Creatinine [Mass ratio]16 mg/kmZrxlew83 - 20FT RemisolCHEMISTRY Ordered By: Margaret Collier on 11-72-1042Vgynxkqrzqo peptide B (Bld) [Mass/Vol] 756 pg/mLHigh5 - 80 pg/mLH[facility] HemeManSSCOAGULATIONOrdered By: Fay Tran on 44-55-0537hJOZ Coag (PPP) [Time]28.4 yYhrmhi72.1 - 36.5 second(s)[facility] Auto Coag Comment on above:Interpretive Data: Parameter 15 days - 4 weeks 1 - 5 months 6 - 11 months 1 - 5 years 6 - 10 years 11 - 17 years PTT Mean: 35.4 (27.6-45.6) Mean: 33.5 (24.8-40.7) Mean: 32.4 (25.1-40.7) Mean: 31.6 (24.0-39.2) Mean: 31.6 (26.9-38.7) Mean: 31.0 (24.6-38.4) Pediatric Reference ranges were obtained from a study by [employer]. prepared from 1437 samples obtained at 7 different centers using the same coagulation reagent and instrumentation as [facility]. Currently there are no coagulation studies available worldwide for children to 14 days, andno normal ranges. Heparin therapeutic range (represented by Anti-Factor Xa activity of 0.2 - 0.4 U/mL) corresponds to PTT of 56.6 - 109.0 sec.INR Coag (PPP) [Relative time]1.0 {INR}Invalid Interpretation CodeHILLCREST HOSPITAL SOUTH Auto CoagComment on above:Interpretive Data: INR results are specifically intended to assess patients stabilized on long-term Anticoagulation therapy suggested INR s Less Intensive Anticoagulation 2.0 3.0 Conventional Range 3.0 4.5PT Coag (PPP) [Time]11.3 sNormal9.4 - 12.5 second(s) [facility] Auto CoagComment on above:Interpretive Data: 15 days [...] the same coagulation reagent and instrumentation as [facility]. Currently there are no coagulation studies available worldwide for children to 14 days, andno normal ranges.Consent for Procedure/Surgeryon 74-37-6973Txgkirz for Procedure/[id number]#1.00TIFCleveland Clinic Children's Hospital for RehabilitationConsent for Treatmenton 28-54-9076Mnkcrts for Treatment [id number]#1.00Corey HospitalDischarge Instructionson 53-68-5616Jzezqaxfd Instructions [id number]#1.00[facility] Clinical Summaryon 94-81-9575FV Clinical Summary [place] [id number] ED Clinical Summary Person Information Name: HARJIT ASENCIO I Patricia[facility] Age: 73 Years : 1950 Sex: Female Language: Danish PCP: Peggy Nazario MD Marital Status: Visit [...] 07/07/2023 13:04:13 07/07/2023 13:04:13 07/07/2023 13:04:13 ADDRESS: [address] [place] [address] [address] [facility] [phone] PHYS DOC NOTES: MEDICAL INFORMATION: Prescriptions Given: [...] up: With: Address: When: Johan MARTINEZ [address] [place] [phone] Business (1) In 3 days 07/10/2023 With: Address: When: Peggy Bermudezby [address] [place] [address] Business (1) In 3 days 07/10/2023 DIAGNOSIS: A-fib; AnxietyNormalFisher Hernandez Medical CenterED Note-Nursingon 02-94-0420TS Note-Nursingdiscussed in length medications pt needs to take yet today and need to knot picker cloth Rx 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NormalGalveston Hernandez Medical CenterED Patient Education Noteon 88-54-7095FA Patient Education NoteCardiovascular Atrial Fibrillation Atrial fibrillation [...] signals of the heart. ? An ambulatory undercutter operator to record your heart's activity for a [...] weakness. ? Trouble breathing. (more content not included)...[facility] Patient Summaryon 69-80-4496RY Patient Summary [place] [id number] Patient Discharge Instructions Person Information Name: HARJIT ASENCIO I Age: 73 Years Arrival Date: 07/07/2023 08:56:07 Discharge Diagnosis: A-fib; Anxiety Primary Care Physician: Peggy Nazario MD Provider Information Primary Provider: Jeff Cross DO [employer] Engineer:Noe Black PA-C The exam and treatment you received in the Emergency Department were for an urgent problem and are not intended as complete care. It is important that you follow up with a doctor, nurse practitioner,or physician?s bilingual administrative assistant for ongoing care. If your symptoms [...] Follow-up Instructions: With: Address: When: Johan HENRIQUEZ [address] [place], [place] [address] [place] [phone] [employer] (1) In 3 days 07/10/2023 With: Address: When: Peggy Bermudezby [address] [place] [address] [employer] (1) In 3 days 07/10/2023 In the event that this physician does not participate in your insurance network, please consult with your insurance company to find a nearby participating provider. Patient Education Materials: Managing Anxiety, Adult; Atrial Fibrillation A MESSAGE TO ALL PATIENTS REGARDING OPIOIDS PRESCRIPTION OPIOIDS: WHAT YOU NEED TO KNOW Prescription opioids can be used to help relieve umbbjbno-vt-anydsg pain and are often prescribed following a [...] your community drug take- back program or [employer] mail-back program, or flush them down the toilet, following guidance from the Food and Drug Administration (www.fda.gov/Drugs/ResourcesForYou). ? Visit www.cdc.gov/drugoverdose to learn about the risks of opioids abuse and overdose. ? If you believe you may be struggling with addiction, tel (more content not included)...[facility] CenterHEMATOLOGYOrdered By: SYSTEM SYSTEM on 66-62-6205Suzinwxec/100 WBC (Bld)0.6 %Normal0.0 - 2.0 %[facility] HemeAutoSS Basophils/Leukocytes Auto (Bld) [Pure # fraction]0.0 E9/LNormal0.0 - 0.2 E9/L [facility] HemeAutoSSEosinophils/100 WBC (Bld)1.5 %Normal0.0 - 8.0 %[facility] HemeAutoSS Eosinophils/Leukocytes Auto (Bld) [Pure # fraction]0.1 E9/LNormal0.0 - 0.5 E9/L [facility] HemeAutoSSLymphocytes/100 WBC (Bld)15.3 %Cfwogu64.0 - 50.0 %[facility] HemeAutoSS Lymphocytes/Leukocytes Auto (Bld) [Pure # fraction]1.2 E9/LNormal1.0 - 4.0 E9/L [facility] HemeAutoSSMonocytes/100 WBC (Bld)6.4 %Normal4.0 - 14.0 %[facility] HemeAutoSS Monocytes/Leukocytes Auto (Bld) [Pure # fraction]0.5 E9/LNormal0.2 - 1.0 E9/L [facility] HemeAutoSSNeutrophils/100 WBC (Bld)76.2 %High36.0 - 75.0 %[facility] HemeAutoSS Neutrophils/Leukocytes Auto (Bld) [Pure # fraction]6.1 E9/LNormal2.0 - 7.5 E9/L FT HemeAutoSSHEMATOLOGYOrdered By: Sharifa Castillo on 90-99-3747Fkmbkkejrqs distribution width (RBC) [Ratio]13.8 %Gifwik36.9 - 14.2 %[facility] HemeAutoSS Hematocrit (Bld) [Volume fraction]40.3 %Fgyehl28.0 - 46.0 %[facility] HemeAutoSS Hemoglobin (Bld) [Mass/Vol]13.0 g/nKIlnwpv63.0 - 16.0 gm/dLFTMC HemeAutoSSMCH (RBC) [Entitic mass]29.2 dyQefyhz38.0 - 34.0 pgFTMC HemeAutoSSMCHC (RBC) [Mass/Vol]32.3 g/xSLptqgl33.4 - 36.0 gm/dLFTMC HemeAutoSSMCV (RBC) [Entitic vol] 90.2 wQOermde18.0 - 100.0 fLFTMC HemeAutoSSPlatelet mean volume (Bld) [Entitic vol]8.5 fLNormal6.4 - 10.8 fLFTMC HemeAutoSSPlatelets (Bld) [#/Vol]291.0 E9/L Mffrgf361.0 - 500.0 E9/LFTMC HemeAutoSSRBC (Bld) [#/Vol]4.5 E12/LNormal4.3 - 5.9 E12/LFTMC HemeAutoSSWBC corrected for nucl RBC Auto (Bld) [#/Vol]8.0 E9/LNormal 4.0 - 11.0 E9/LFTMC HemeAutoSSInsurance Correspondence Officeon 07-07-2023 Insurance Correspondence [id number]#1.00[facility] Recordon 12-14-6075Ejlfres Record [id number]#1.00TIFFNormalOhio State University Wexner Medical Centeritor [id number]#1.00TIFFNormal [facility] and Hospitalitor Record [id number]#1.00TIFFNoAultman Alliance Community HospitalPT & PTTon 65-12-4908oFEC Coag (PPP) [Time]28.4 second(s)Tavfhr31.1-36.5 [facility] HospitalComment on above:Result Comment: Parameter 15 days [...] the same coagulation reagent and instrumentation as [facility]. Currently there are no coagulation studies available worldwide for children to 14 days, andno normal ranges. Heparin therapeutic range (represented by Anti-Factor Xa activity of 0.2 - 0.4 U/mL) corresponds to PTT of 56.6 - 109.0 sec.Performed By: #### 9948304, 50195854, 9538589, 8914678, 6364062, 1175819 #### [facility] [address], [place] [address]JAW Coag (PPP) [Relative time]1.0 {INR}Invalid Interpretation [facility] CenterComment on above:Result Comment: INR results are specifically intended to assess patients stabilized on long-term Anticoagulation therapy suggested INR?s ?Less Intensive Anticoagulation? 2.0 ? 3.0 Conventional Range 3.0 ? 4.5Performed By: #### 6905993, 06637716, 4712835, 0482259, 6162847, 2629325 #### [facility] [address], [place] [address]BY Coag (PPP) [Time]11.3 second(s)Normal9.4-12.5Fisher [facility] Cross HospitalComment on above:Result Comment: 15 days - [...] the same coagulation reagent and instrumentation as [facility]. Currently there are no coagulation studies available worldwide for children to 14 days, andno normal ranges.Performed By: #### 3914084, 08355212, 0403200, 5256800, 8766089, 5127861 #### [facility] [address], [place] [address]Hqfkvxmr 0 Hr.on 17-45-1995Vgtixobx I.cardiac [Mass/Vol]39.60 pg/cVYcwdpchy51.10-27.10Fisher [facility] Cross HospitalComment on above:Result Comment: Critical Result verified [...] Sensitivity Troponin I Instructions For Use, [place], March 2018)Performed By: #### 9081496, 23236593, 3340121, 6253502, 5576167, 4113878 #### [facility] [address] [place], [place] [address]Ikwkhhyv 3 Hr.on 05-72-9521Xpbqskbp I.cardiac [Mass/Vol]42.10 pg/wIOzvdaktw13.10-27.10[facility] HospitalComment on above:Result Comment: Critical Result verified [...] Use, Marlys [place], March 2018)Performed By: #### 85091196 ####[facility] [address] [place], [place] [address]VO Chest Single Viewon 39-29-8610XW Chest Single ViewExam Date/Time: 07/07/2023 09:25 EST [...] Ka,r in mGy = na DAP = naNormalMansfield HospitaleGFRon 36-00-8099UCM/1.73 sq M.predicted among non-blacks MDRD (S/P/Bld) [Vol rate/Area]77 mL/min/1.73 m2 Normal>=59M[facility]field HospitalComment on above:Order Comment: Order added by Discern Expert.Result Comment: Chronic kidney disease could be indicated at eGFR's of less than 60 mL/min/1.73m2. Kidney failure is indicated at less than 15 mL/min/1.73m2.Performed By: #### 6461044, 10347814, 9023112, 1182579, 8641107, 6759265 #### [facility] [address], [place] [address]KAZog 24-32-4260Epjda gap [Moles/Vol]5 mmol/LLow6-16M[facility] HospitalComment on above:Performed By: #### 6645729, 84769542, 0927532, 9538469, 8137458, 7989943 #### [facility] [address], [place] [address]Uwkgajh [Mass/Vol]8.0 mg/dLLow8.9-11.1Fisher [facility] Cross HospitalComment on above:Performed By: #### 8510736, 70455341, 2560684, 3353504, 3201638, 3954188 #### [facility] [address], [place] [address]Phvhjkdq [Moles/Vol]109 mmol/CBzmmgj175-633WxsygpMansfield HospitalComment on above:Performed By: #### 3858534, 29046496, 8041860, 7988548, 4152226, 4992094 #### [facility] [address], [place] [address]FT1 [Moles/Vol]28 mmol/OUkxezq70-66WfjvmuMansfield Hospital Comment on above:Performed By: #### 9825241, 72806012, 6927095, 1277361, 3584116, 6049150 #### [facility] [address], [place] [address]Xlhzepipdb [Mass/Vol]0.7 mg/dLNormal0.5-1.3FPremier Health Atrium Medical CenterComment on above:Performed By: #### 5272009, 14520853, 0390786, 6932828, 5901512, 6766761 #### [facility] [address], [place] [address]Jhmiyzu [Mass/Vol]91 mg/fJMuvrsp61-124TklmmpMansfield HospitalComment on above:Result Comment: If this glucose result represents a fasting glucose, interpretation should refer tothe following reference range: 55-99 mg/dLPerformed By: #### 1825323, 43075274, 8296515, 1032194, 3457169, 7085950 #### [facility] [address] [place] [address]Xiamvpdtf [Moles/Vol]3.9 mmol/LNormal3.5-5.3FPremier Health Atrium Medical CenterComment on above:Performed By: #### 4426262, 37777096, 5000484, 3547508, 6184673, 4507698 #### [facility] [address] [place], [place] [address] 89906Fiqkhb [Moles/Vol]138 mmol/LZvdylz452-877HihkpvMansfield HospitalComment on above:Performed By: #### [id number], [id number], 5551168, 7226681, 3556226, [id number] #### [facility] [address], [place] [address]Njkg nitrogen [Mass/Vol]12 mg/dLNormal5-21Mansfield HospitalComment on above:Performed By: #### [id number], [id number], 5299548, 3668910, 8407445, [id number] #### [facility] [address], [place] [address]Kllc nitrogen/Creatinine [Mass ratio]17 No UsqkqYldujg08-85 Mansfield HospitalComment on above:Performed By: #### [id number], [id number], 5450022, 7914527, 5985779, [id number] #### [facility] [address] [place] [address] 35591ZFIKFOFMAXehmbky By: SYSTEM SYSTEM on 61-53-9168Onhfu gap [Moles/Vol]5 mmol/LLow6 - 16 mEq/LFTMC RemisolCalcium [Mass/Vol]8.0 mg/dLLow8.9 - 11.1 mg/dLFT RemisolChloride [Moles/Vol]109 mmol/AOyhjqc893 - 111 mmol/LFTMC RemisolCO2 [Moles/Vol]28 mmol/NDieasw00 - 31 mmol/LFTMC RemisolCreatinine [Mass/Vol]0.7 mg/dLNormal0.5 - 1.3 mg/dLFTMC RemisolGFR/1.73 sq M.predicted among non-blacks MDRD (S/P/Bld) [Vol rate/Area]90 mL/min/1.73 w5Bucwum >=59mL/min/1.73 m2FT Chem SComment on above:Interpretive Data: Chronic kidney disease could be indicated at eGFR's of less than 60 mL/min/1.73m2. Kidney failure is indicated at less than 15 mL/min/1.73m2.Glucose [Mass/Vol]91 mg/dL Isgqsx93 - 199 mg/dLFT RemisolComment on above:Interpretive Data: If this glucose result represents a fasting glucose, interpretation should referto the following reference range: 55-99 mg/dLPotassium [Moles/Vol]3.9 mmol/LNormal3.5 - 5.3 mmol/LFTMC RemisolSodium [Moles/Vol]138 mmol/SPvlrrv639 - 145 mmol/LFTMC RemisolUrea nitrogen [Mass/Vol]12 mg/dLNormal5 - 21 mg/dLFT RemisolUrea nitrogen/Creatinine [Mass ratio]17 mg/smOukgnx42 - 20FT RemisolDischarge Note-Nursingon 07-62-6968Dpjcvldnd Note-Nursing HARJIT ASENCIO I :1950 Visit Date:07/02/2023 Inpatient Discharge Instructions Your Care Team Admitting Physician - Noman PATTON DO Consulting Physician - DYLAN MCMAHON, Cody Goff MD, Eb Yeh [facility] Cardio, XXXX Reason for Your Visit I [...] mils per day fluid restriction Pharmacy Information [facility] Previously Scheduled Follow-Up Appointments Monday 1:00 PM EDT With: CECILIA MCMAHON, Micheline Morgan [facility] Clinical Summaryon [id number] Clinical Summary [address] [address] Clinical Summary Person Information: Name: HARJIT ASENCIO I Age: 73 Years : 1950 Sex: Female PCP: Peggy Nazario MD Marital Status: Race: White Ethnicity: Non- or Language: Danish Visit Id: Visit Reason: Genitourinary problem; 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 Speciality: Acuity: Enc Type: Observation Med Service: Medical Arrival: 07/02/2023 21:17:31 Discharge: Dispo Type: Admitted as IP to this [facility] Address: [address] [place] [address] [address] [facility] [id number] Provider Notes: Diagnosis: 1:Atrial fibrillation with RVR; [...] MCMAHON, Eb Yeh; DYLAN MCMAHON, Cody Dumont; [facility] Cardio, XXXX Referring Physician: Follow up: With: Address: When: Johan HENRIQUEZ [address] [place] [phone] Business (1) Within 2 weeks Comments: Call for followup appointment With: Address: When: Peggy Nazario [address] [place] [address] Business (1) 07/10/2023 1:00 PM With: Address: When: Micheline BROOKS [facility], [address], [place] [address] Business (1) Comments: Call for followup appointment re: the indwelling Robles catheter. Type Location Start Finish [facility] URO Office Visit [facility] WILL Silva 11/22/2023 1:00 PM 11/22/2023 1:15 PM Confirmed Patient Education Information: CV - Cardiovascular Discharge Instructions (Custom)[facility] CenterInpatient Patient Summaryon [id number] Patient Summary [address] [address] Patient Discharge Instructions PERSON INFORMATION [...] up: With: Address: When: Johan HENRIQUEZ [address] [place] [phone] Business (1) Within 2 weeks Comments: Call for followup appointment With: Address: When: Peggy Nazario [address] [place] [address] Business (1) 07/10/2023 1:00 PM With: Address: When: Micheline BROOKS [facility], [address], [place] [address] Business (1) Comments: Call for followup appointment re: the indwelling Robles catheter. In the event that this physician does not participate in your insurance network, please consult with your insurance company to find a nearby participating provider. Type Location Start Finish [place] [facility] Office Visit [facility] WILL Silva 11/22/2023 1:00 PM 11/22/2023 1:15 PM Confirmed Comment: ELIF Ruiz JOYCE I, have received the attached patient education materials/instructions and have verbalized understanding: Patient Signature Date Clinican/Nurse Signature Date HERE ARE THE MEDICATION CHANGES THAT OCCURRED DURING YOUR HOSPITAL STAY New Medications [id number], [address] [place], [place] [id number], [phone] apixaban (Eliquis 5 mg oral tablet) 1 [...] times a day. Refills (more content not included)...[facility] CenterInterdisciplinary Note - Case Manageron 02-00-2424Kjistuzpyhgbaoanb Note - Case ManagerPt is awake and alert in bed, previously rounded with Dr. Serrato. Await cardiology to see and anticipate DC home later today. Declines any concerrns or DC needs. Brilinta was priced out yesterday $183 and coupon provided. . PCP verified and insurance information reviewed and DME discussed. Contact information provided and white board updated.[facility] CenterComment on above:Result Comment: Electronically Signed By: Martín ALFORD, Radha\.br\Date and Time Signed: 07/06/23 12:06 ESTMonitor Recordon 41-71-5407Tpvdtlj Record [id number]#1.00TIFFNoAultman Alliance Community HospitalMonitor [id number]#1.00TIFFNoOhioHealth Southeastern Medical Centeritor Record [id number]#1.00Corey HospitalProgress Note-Physicianon 27-76-8452Cihqwutn Note-PhysicianAssessment/Plan 73-year-old female with history of ureteral stricture with previous dilations, anxiety disorder presented with complaints of urinary hesitancy, constipation, cough and shortness of breath and was [facility] with acute paroxysmal atrial fibrillation with [...] IV Cardizem drip. Continue on Coreg, digoxin. [employer] And White Printer Operator debating on starting patient on amiodarone. Eliquis to start in 4 days after cardiac catheterization. Ordered: [facility] Hospital Care/Day Moderate 35 Minutes 77194 2. Acute systolic congestive heart failure (I50.21: Acute systolic (congestive) heart failure) Acute systolic congestive heart failure?present on admission. Seen by labor specialist and underwent cardiac catheterization that showed mild coronary artery disease. Also shows severe mitral regurgitation and tricuspid regurgitation with ejection fraction of 30 to35%. Continue on aspirin, Coreg, losartan and Lasix. Ordered: [facility] Hospital Care/Day Moderate 35 Minutes 66391 3. Severe mitral regurgitation (I34.0: Nonrheumatic mitral (valve) insufficiency) As seen on cardiac catheterization. Patient will follow-up with labor specialist for HAROON and then valvular repair. [employer] And White Printer Operator also considering transferring patient to or [facility]. Ordered: [facility] Hospital Care/Day Moderate 35 Minutes 88906 4. Elevated troponin (R79.89: Other specified abnormal findings of blood chemistry) Secondary to type II non-ST segment elevation myocardial infarction from above and mild coronary artery disease.. Seen by labor specialist and underwent cardiac catheterization that showed mild coronary artery disease. Continue on aspirin, Lipitor, and Coreg. Ordered: [facility] Hospital Care/Day Moderate 35 Minutes 20019 5. Mild coronary artery disease (I25.10: Atherosclerotic heart disease of [place] coronary artery without angina pectoris) As seen on cardiac catheterization on 07/05/2023. Continue on Lipitor and aspirin. Ordered: [facility] Hospital Care/Day Moderate 35 Minutes 46918 6. anxiety (F41.9: Anxiety disorder, unspecified) Increase [...] vein thrombosis (DVT) prophylaxis (Z79.899: Other intermediate (current) drug therapy) SCDs. Eliquis to resume in 4 days. Disposition: Home soon today if heart rate is under good control with plans to follow-up with labor specialist and urologist as outpatient. However if heart rate is still elevated then we will call [facility] or [facility] to see if we can transfer patient for valve repair/replacement. I discussed the diagnosis and plan of care with the patient at the bedside. Moderate level of MDM based on addressing above issues. This documentation was transcribed using voice recognition software. Several attempts were made to ensure accuracy. However inadvertent computerized boatwright errors may be present. Nahid Serrato. Hospitalist. [...] Basic Metabolic Panel eGF (more content not included)...[facility] CenterComment on above:Result Comment: Electronically Signed By: JAZMÍN [...] she is going to get to the [facility] or [facility] for mitral valve/tricuspid valve surgery. Despite [...] to transfer the patient directly to the [facility] or [facility] given her logistic challenges with gettinga [...] artery disease (I25.10: Atherosclerotic heart disease of [place] coronary artery without angina pectoris) 6. Pleural effusion (J90: Pleural effusion, not elsewhere classified) 7. Urinary hesitancy (R39.11: Hesitancy of micturition) 8. Other urethral stricture, female (N35.82: Oth (more content not included)... [facility] CenterComment on above:Result Comment: Electronically Signed By: MARTINEZ MCMAHON, oJhan Ribeiro.zak\Date and Time Signed: 07/06/23 09:22 ESTeGFR on 14-00-5497JHS/1.73 sq M.predicted among non-blacks MDRD (S/P/Bld) [Vol rate/Area]90 mL/min/1.73 q9Hzfuuq>=59Mansfield HospitalComment on above:Order Comment: Order Added by Discern Expert.Result Comment: Chronic kidney disease could be indicated at eGFR's of less than 60 mL/min/1.73m2. K idney failure is indicated at less than 15 mL/min/1.73m2.Performed By: #### [id number], 83954346, 5250114, 0208545, 9317082, 6747800 #### [facility] [address] [place] [address] [place], [place] [address]YTGqa 41-66-2746Emzae gap [Moles/Vol]9 mmol/LNormal6-16Mansfield HospitalComment on above:Performed By: #### [id number], [id number] ####[address] [place] [address] Calcium [Mass/Vol]8.2 mg/dLLow8.9-11.1FPremier Health Atrium Medical CenterComment on above:Performed By: #### [id number], 7854433 ####[address] [place], [place] [address]Rrflecgz [Moles/Vol]105 mmol/LNormal 101-111Mansfield HospitalComment on above:Performed By: #### [id number], 6892598 ####[address] [address]GU2 [Moles/Vol]27 mmol/SImasen90-97AcwugnMansfield HospitalComment on above:Performed By: #### [id number], 6866696 ####[address] [address]Jurcjtgwzg [Mass/Vol]0.7 mg/dLNormal 0.5-1.3FPremier Health Atrium Medical CenterComment on above:Performed By: #### [id number], [id number] ####[address] [place], [place] [address]Jflcrpn [Mass/Vol]115 mg/jQQawlzc76-333OvtcvpMansfield HospitalComment on above:Result Comment: If this glucose result represents a fasting glucose, interpretation should refer tothe following reference range: 55-99 mg/dL Performed By: #### [id number], 5321476 ####[facility] [address] [place] [address]Qggtydrgf [Moles/Vol]4.3 mmol/LNormal 3.5-5.3FPremier Health Atrium Medical CenterComment on above:Performed By: #### [id number], 7684692 ####[facility] [address] [place], [place] [address]Vijqfz [Moles/Vol]137 mmol/KTxljsi423-242HknbnnMansfield HospitalComment on above:Performed By: #### [id number], 9362649 ####[facility] [address] [place], [place] [address]Unnh nitrogen [Mass/Vol]13 mg/dL Normal5-21Mansfield HospitalComment on above:Performed By: #### [id number], 3084414 ####[facility] [address] [place], [place] [address]Txpm nitrogen/Creatinine [Mass ratio]19 No TmrzhAleall83-90 Mansfield HospitalComment on above:Performed By: #### 18892330, 8999235 ####[facility] [address] [place] [address] CHEMISTRYOrdered By: SYSTEM SYSTEM on 91-45-4598Jxoqv gap [Moles/Vol]9 mmol/L Normal6 - 16 mEq/LFTMC RemisolCalcium [Mass/Vol]8.2 mg/dLLow8.9 - 11.1 mg/dLHILLCREST HOSPITAL SOUTH RemisolChloride [Moles/Vol]105 mmol/MKjybxg232 - 111 mmol/LFTMC RemisolCO2 [Moles/Vol]27 mmol/WJxahna33 - 31 mmol/LFTMC RemisolCreatinine [Mass/Vol]0.7 mg/dLNormal0.5 - 1.3 mg/dLHILLCREST HOSPITAL SOUTH RemisolGFR/1.73 sq M.predicted among non-blacks MDRD (S/P/Bld) [Vol rate/Area]90 mL/min/1.73 f4Zluhrg>=59mL/min/1.73 m2H[facility]CREST [facility] Chem SComment on above:Interpretive Data: Chronic kidney disease could be indicated at eGFR's of less than 60 mL/min/1.73m2. Kidney failure is indicated at less than 15 mL/min/1.73m2.Glucose [Mass/Vol]115 mg/hFQomkzk85 - 199 mg/dLHILLCREST HOSPITAL SOUTH RemisolComment on above:Interpretive Data: If this glucose result represents a fasting glucose, interpretation should referto the following reference range: 55-99 mg/dLPotassium [Moles/Vol]4.3 mmol/LNormal3.5 - 5.3 mmol/LFTMC Remisol Sodium [Moles/Vol]137 mmol/VCdtbzw489 - 145 mmol/LFTMC RemisolUrea nitrogen [Mass/Vol]13 mg/dLNormal5 - 21 mg/dLHILLCREST HOSPITAL SOUTH RemisolUrea nitrogen/Creatinine [Mass ratio]19 mg/epLvjqtc34 - 20[facility] RemisolCHEMISTRYOrdered By: Lab ROPUser on 86-48-5499Kmxlihw [Mass/Vol]79 mg/yEOjxzpl32 - 99 mg/dLHILLCREST HOSPITAL SOUTH POC Subsection Comment on above:Result Comment: Notified RN/ANDREINAOC UsernamVega Shetty Interpretation CodeHILLCREST HOSPITAL SOUTH POC SubsectionSodium [Moles/Vol][id number] mmol/L Invalid Interpretation CodeHILLCREST HOSPITAL SOUTH POC SubsectionSodium [Moles/Vol]226553659 mmol/L Invalid Interpretation [facility] POC SubsectionCapillary Glucose POCon 07-05-2023 Glucose [Mass/Vol]79 mg/vFOuvrsn93-34ZxyztsMansfield HospitalComment on above:Result Comment: Notified RN/ANDREINAerformed By: #### [id number] #### Farshad [facility] [address], [place] [address]Qshlavmtoejcsh Reporton 14-90-3094Hodydbnjitvirt Report [id number]#1.00TIFMerleAultman Alliance Community HospitalMonitor Recordon 90-14-5999Bmpwmcr Record [id number]#1.00TIFMerleAultman Alliance Community HospitalMonitor [id number]#1.00TIFSt. Francis Medical Center [facility] and Hospitalitor Record [id number]#1.00Nilton [facility] and Hospitalitor [id number]#1.00Nicole Yen [facility] and Hospitalitor Record [id number]#1.00LIVE OAKMerleAlexandria Holy Cross HospitalOperative Reporton 53-18-2883Ojxjdmgyw ReportSURGERY DATE: 07/05/2023 PREOPERATIVE DIAGNOSIS: Atrial fibrillation, [...] an exchange length J-wire. Next a 4 Anguillan sheath was placed without complications and flushed with heparinized saline. Next the right femoral vein was accessed with a single anterior stick of a Cook needle followed by placement of a short J-wire under fluoroscopic guidance. Next a 7 Anguillan sheath was placed without complications and flushed with heparinized saline. Next a balloon tip Sand[place]-Lois catheter was advanced under fluoroscopic guidance into [...] by thermal was 2.57. Next a 4 Anguillan angled pigtail catheter was easily advanced into the left ventricular chamber. AO saturation was 84%. PA saturation was 46%. Simultaneous LV and wedge pressure demonstrated a large V wave indicating severe mitral regurgitation. Simultaneous LV and RV pressures demonstrated no overt evidence of pericardial constriction although the patient is in atrial fibrillation making that somewhat problematic. Sandia-Lois catheter was then removed. The LV angiogram performed in the 30 degree right anterior oblique position demonstrated severe global LV dysfunction with an ejection fraction around 25- 30%. There was severe mitral regurgitation which completely filled the left atrium after the second beat. There was no significant gradient seen on pullback. Next the pigtail catheter was exchanged over a wire for a 4 Anguillan JL5 catheter. This was easily engaged into [...] exchanged over a wire for a 4 Anguillan 3DRC catheter. This was easily engaged into the right coronary artery. There was no dampening or ventricularization upon engagement. Right coronary artery: The right coronary artery is a moderate size dominant vesse (more content not included)...[facility] CenterComment on above:Result Comment: Electronically Signed By: MARTINEZ MCMAHON, Johan Ribeiro.zak\Date and Time Signed: 07/05/23 11:46 ESTProgress Note-Nurseon 95-96-9284Hxhvtixk Note-Nursecath lab made aware patient last dose of lovenox was given on 07/04/23 @ 9470.[facility] CenterProgress Note-Physicianon 07-05-2023 Progress Note-PhysicianAssessment/Plan 73-year-old female with history of ureteral stricture with previous dilations, anxiety disorder presented with complaints of urinary hesitancy, constipation, cough and shortness of breath and was admitted [facility] with acute paroxysmal atrial fibrillation with [...] date 07/06/23 9:00:00 EST, 07/05/23 11:13:00 EST [facility] Hospital Care/Day Moderate 35 Minutes 91997 2. Acute systolic congestive heart failure (I50.21: Acute systolic (congestive) heart failure) Acute systolic congestive heart failure?present on admission. Seen by labor specialist. She is status post cardiac catheterization that showed mild coronary artery disease. Also showed severe mitral regurgitation and tricuspid regurgitation.. Ejection fraction of 30 to 35%. Continue on aspirin, Coreg, losartan, Lasix. Ordered: Sbsq Hospital Care/Day Moderate 35 Minutes 01857 3. Severe mitral regurgitation (I34.0: Nonrheumatic mitral (valve) insufficiency) Severe mitral regurgitation?seen on cardiac catheterization. Follow-up with labor specialist as outpatient for HAROON and then valvular repair. Ordered: [facility] Hospital Care/Day Moderate 35 Minutes 33518 4. Elevated troponin (R79.89: Other specified abnormal findings of blood chemistry) Secondary to type II non-ST segment elevation myocardial infarction from above and mild coronary artery disease.. Seen by labor specialist and underwent cardiac catheterization that showed mild coronary artery disease. Continue on aspirin, Lipitor, and Coreg. Ordered: furosemide, 40 mg = 1 tab(s), Tab, Oral, Daily, Routine, Start date 07/06/23 9:00:00 EST, 07/05/23 11:13:00 EST [facility] Hospital Care/Day Moderate 35 Minutes 64558 5. Mild coronary artery disease (I25.10: Atherosclerotic heart disease of [place] coronary artery without angina pectoris) As seen on cardiac catheterization on 07/06/2023. Continue on Lipitor and aspirin. Ordered: [facility] Hospital Care/Day Moderate 35 Minutes 77528 6. Pleural effusion (J90: Pleural effusion, not [...] vein thrombosis (DVT) prophylaxis (Z79.899: Other intermediate (current) drug therapy) Lovenox. Disposition: Home in a.m. to follow-up with labor specialist and urologist. I discussed the diagnosis and plan of care with the patient at the bedside. Moderate level of MDM based on addressing above issues. This documentation was transcribed using voice recognition software. Several attempts were made to ensure accuracy. However inadvertent computerized boatwright errors may be present. Nahid Serrato. Hospitalist. Orders: Basic Metabolic Panel Basic Metabolic Panel Referral to [facility] Center Subjective Seen and examined. Offers no complaints today. Completed cardiac catheterization today. Offers no new complaints. Objective Vitals & Measurements T: 36.7 ?C(Axillary) TMIN: 36.5 ?C(Oral) TMAX: 36.9 ?C(Axillary) HR: 89(Monitored) BP: 102/64 SpO2:97% HT: 165.10 cm WT: 58.4 kg Intake & Output This (more content not included)...[facility] CenterComment on above:Result Comment: Electronically Signed By: JAZMÍN MCMAHON, Nahid\.br\Date and Time Signed: 07/05/23 11:19 ESTeGFRon 54-62-3280JNV/1.73 sq M.predicted among non-blacks MDRD (S/P/Bld) [Vol rate/Area]90 mL/min/1.73 g2Yxxigx>=59M[facility] HospitalComment on above:Order Comment: Order added by Discern Expert. Result Comment: Chronic kidney disease could be indicated at eGFR's of less than 60 mL/min/1.73m2. Kidney failure is indicated at less than 15 mL/min/1.73m2. Performed By: #### [id number], [id number] ####Farshad [facility] [address] [place], [place] [address]Lunsrls Recordon 73-67-5890Uisznez [id number]#1.00TIFFNormalOhio State University Wexner Medical Centeritor [id number]#1.00TIFF NormalMansfield HospitalMonitor Record [id number]#1.00TIFFNormOhio Valley Surgical Hospitalitor [id number]#1.00TIFFulton Medical Center- Fultonal [facility] HospitalPatient Education - Texton 10-88-8506Zpkhtji Education - [facility] CenterProgress Note-Physicianon 81-16-7330Orgsqrye Note-PhysicianAssessment/Plan 73-year-old female with history of ureteral stricture with previous dilations, anxiety disorder presented with complaints of urinary hesitancy, constipation, cough and shortness of breath and was admitted to [facility] with acute paroxysmal atrial fibrillation with [...] BID, # 60 tab(s), Refills(s) 0, Pharmacy: [id number], 165, cm, 07/02/23 21:30:00 EST, Height/Length Dosing, 55.7, kg, 07/02/23 21:30:00 EST, Weight Dosing Echo Transthoracic Complete Sbsq Hospital Care/Day Moderate 35 Minutes 24997 2. Acute systolic congestive heart failure (I50.21: Acute systolic (congestive) heart failure) Acute systolic congestive heart failure?present on admission. Cardiology is following. Ejection fraction of 30 to 35%. Cardiology is planning on cardiac catheterization for ischemic work-up in AM. Meanwhile continue on aspirin, Coreg, losartan. We will verify with labor specialist about Lasix. Ordered: [facility] Hospital Care/Day Moderate 35 Minutes 26368 3. Elevated troponin (R79.89: Other specified abnormal findings of blood chemistry) Secondary to type II non-ST segment elevation myocardial infarction from above. Echocardiogram shows ejection fraction of 30 to 35%. [employer] And White Printer Operator following with plans for cardiac catheterization in AM. Meanwhile continue on aspirin and Coreg. Ordered: Echo Transthoracic Complete [facility] Hospital Care/Day Moderate 35 Minutes 22970 4. Pleural effusion (J90: Pleural effusion, not elsewhere classified) Small pleural effusion?secondary to acute systolic congestive heart failure. Supportive care. Lasix as needed. Ordered: [facility] Hospital Care/Day Moderate 35 Minutes 15079 5. Urinary hesitancy (R39.11: Hesitancy of micturition) Secondary to urethral stricture and urinary retention. She is status post Robles catheter placement. Urology consult reviewed by me. I appreciate and agreed recommendations. Patient will discharge with Robles catheter and leg bag to follow-up with urologist as outpatient. Ordered: [facility] Hospital Care/Day Moderate 35 Minutes 20788 6. Other urethral stricture, female (N35.82: Other [...] Daily, NOW, Start date 07/03/23 11:16:00 EST [facility] Hospital Care/Day Moderate 35 Minutes 88245 9. On deep vein thrombosis (DVT) prophylaxis (Z79.899: Other intermediate (current) drug therapy) Lovenox. Disposition: Pending cardiac catheterization in AM. I discussed the diagnosis and plan of care with the patient at the bedside. I also spoke with the patient's daughter Mandeep over the phone. Moderate level of MDM based on addressing above issues. This documentation was transcribed using voice recognition software. Several attempts were made to ensure accuracy. However inadvertent computerized boatwright errors may be present. Nahid Serrato. Hospitalist. [...] mL mL -- 176.8 (more content not included)...[facility] CenterComment on above:Result Comment: Electronically Signed By: JAZMÍN [...] vein thrombosis (DVT) prophylaxis (Z79.899: Other intermediate (current) drug therapy) Urinary retention (R33.9: [...] Inhalation, QID, PRN f (more content not included)...[facility] CenterComment on above:Result Comment: Electronically Signed By: MARTINEZ MCMAHON, Johan Ribeiro.br\Date and Time Signed: 07/04/23 08:04 ESTCHEMISTRYOrdered By: SYSTEM SYSTEM on 07-03-2023 Cholesterol [Mass/Vol]145 mg/aLFofafj614 - 200 mg/dLFT RemisolCholesterol in HDL [Mass/Vol]43 mg/dLInvalid Interpretation CodeFT RemisolComment on above: Interpretive Data: HDL > or equal to 60 mg/dL: Low cardiovascular risk HDL < 40 mg/dL : High cardiovascular riskCholesterol in LDL [Mass/Vol]99 mg/dL Normal<=129mg/dLFTMC RemisolCholesterol in VLDL [Mass/Vol]17 mg/dLNormal7 - 40 mg/dLFTMC RemisolTriglyceride [Mass/Vol]85 mg/dLNormal<=149mg/dLFTMC Remisol Troponin I.cardiac [Mass/Vol]27.10 pg/kLDqvlhj62.10 - 27.10 pg/mLFTMC Remisol Comment on above:Interpretive Data: The 95% CI (Confidence Interval) PPV (Positive Predictive Value) for myocardial infarction in females is 38 pg/mL, in males 51 pg/mL. The results should be used in conjunction withclinical conditions of myocardial infarction. (Access High Sensitivity Troponin I Instructions For Use, [employer], March 2018)TSH Qn3.83 m[IU]/LNormal0.34 - 5.60 mcIU/mLHILLCREST HOSPITAL SOUTH RemisolCHEMISTRY Ordered By: Cecy Correa on 76-72-3095HpU4y (Bld) [Mass fraction]5.5 %Normal <=5.9%[facility] ChemAutoSSConsultation Noteon 48-79-9855Ljkfxnfareux NotePatient: HARJIT ASENCIO I Age: 73 years [...] cap(s), Refills(s) 0, Pharmacy: [id number], 165, cm, 06/30/23 19:37:00 EST, Height/Length Dosing, 55.7, kg, 06/30/23 19:37:00 EST, Weight Dosing Cipro 500 mg Tab: 500 mg = 1 tab(s), Oral, As Directed, Patient to take 1 tab the day before procedure and the 2nd tab the day of procedure once completed, # 2 tab(s), Refills(s) 0, Pharmacy: [facility] #[id number], 165, cm, 04/26/23 15:23:00 EDT, Height/Length Do... Estrace 0.1 mg/g Cream: 0.5 gm, Vaginal, MonFri, 42.5 gm, Refill(s) 6 Zofran ODT 4 mg Tab-Dis: 4 mg = 1 tab(s), Oral, q8hr, # 12 tab(s), Refills(s) 0, Pharmacy: [facility] #[id number], 165, cm, 06/30/23 19:37:00 EST, Height/Length Dosing, 55.7, kg, 06/30/23 19:37:00 EST, Weight Dosing Documented Medications Documented Ativan 0.5 mg Tab: 0.5 mg = 1 tab(s), Oral, TID, PRN as needed for anxiety, Refills(s) 0 Problem list: All Problems acid reflux / SNOMED CT 370697083 / Confirmed anxiety / SNOMED CT 39101602 / Confirmed Injury of nose / SNOMED CT 97694134 / Confirmed Superficial laceration of face / SNOMED CT 709218934 / Confirmed Acute gastroenteritis / SNOMED CT 407647165 / Confirmed Other urethral stricture, female / SNOMED CT 149256383 / Confirmed Nocturia / SNOMED CT 912615242 / Confirmed Urinary hesitancy / SNOMED CT 136840661 / Confirmed Former smoker / SNOMED CT 58772191 / Confirmed Urinary frequency / SNOMED CT 383792174 / Confirmed Feeling of incomplete bladder emptying / SNOMED CT 755404827 / Confirmed Urinary urgency / SNOMED CT 480593489 / Confirmed Dysuria / SNOMED CT 47656047 / Confirmed Suprapubic pain / SNOMED CT 320857748 / Confirmed Poor urinary stream / SNOMED CT 459431017 / Confirmed Cystocele with prolapse / SNOMED CT 181041113 / Confirmed Stranguria / SNOMED CT 440831410 / Confirmed History of urethral stricture / SNOMED CT 601642144 / Confirmed Weak urine stream / SNOMED CT 991971200 / Confirmed Atrophic vaginitis / SNOMED CT 30690101 / Confirmed Renal lesion / SNOMED CT 3801248016 / Confirmed Histories Past Medical History: Active acid reflux (134773992) anxiety (34186406) Acute gastroenteritis (655574114) Family History: Heart disease Father Diabetes mellitus type 2 Mother Procedure history: Cystourethroscopy with dilation of urethral stricture (890878253) on 10/25/2022 at 72 Years. Cystoscopy/UD (56426432) on 02/23/2021 at 70 Years. Dilation of urethra (31092414) on 02/01/2019 at 68 Years. Cysto/ UD (107238704) on 10/10/2017 at 67 Years. Hysterectomy. colon resection. Corneal implant (870971331). Tonsillectomy (144913330). Dilation of urethra (79705589). Comments: 08/09/2019 13:23 KYA - Darshan SALAS, Tim Velazco (more content not included)...[facility] CenterComment on above:Result Comment: Electronically Signed By: DYLAN MCMAHON, Cody Dumont\.br\Date and Time Signed: 07/03/23 19:12 ESTED Clinical Summaryon [id number] Clinical Summary [place] [id number] ED Clinical Summary Person Information Name: HARJIT ASENCIO I Patricia/[facility] Age: 73 Years : 1950 Sex: Female Language: Danish PCP: Peggy Nazario MD Marital Status: Visit Id: Visit Reason: Genitourinary problem; 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 Speciality: Acuity: 3 Enc Type: Observation Med Service: Emergency Arrival: 07/02/2023 21:17:31 Discharge: LOS: 000 05:33 Checkin: 07/02/2023 21:17:31 Checkout: 07/03/2023 02:50:11 Dispo Type: Admitted as IP to this [facility] EVENTS: Event Name Event Status Request [...] 07/03/2023 02:36:18 07/03/2023 02:36:18 07/03/2023 02:36:19 ADDRESS: [address] [place] [address] E [facility] [id number] PHYS DOC NOTES: MEDICAL INFORMATION: Prescriptions Given: [...] with RVR; 3:New onset a-fib; 4:Elevated troponinNormalFisher Oceana Medical CenterED Note-Physicianon 10-77-7830NF Note-PhysicianBasic Information Time Seen: Layton Crawford M.D. [...] and Complexity of Problems Differential Diagnosis: [] [facility] Data External documents reviewed: [] My [...] Sodium Chloride 0.9% intrave (more content not included)...[facility] CenterComment on above:Result Comment: Electronically Signed By: Yvette Vasquez, Layton Cazares\.br\Date and Time Signed: 07/03/2308:17 ESTED Patient Education Noteon 69-67-7260LC Patient Education NoteNormLakeHealth [facility] Patient Summaryon 61-64-9960MU Patient Summary [place] [id number] Patient Discharge Instructions Person Information Name: HARJIT ASENCIO I Age: 73 Years Arrival Date: 07/02/2023 21:17:31 Discharge Diagnosis: 1:Urinary hesitancy; 2:Atrial fibrillation with RVR; 3:New onset a-fib; 4:Elevated troponin Primary Care Physician: Peggy Nazario MD Provider Information Primary Provider: Layton Crawford M.D. [employer] Engineer:None The exam and treatment you received in the Emergency Department were for an urgent problem and are not intended as complete care. It is important that you follow up with a doctor, nurse practitioner,or physician?s bilingual administrative assistant for ongoing care. If your symptoms [...] opioids can be used to help relieve wzcjyamm-xc-ajizyk pain and are often prescribed following a [...] your community drug take- back program or [facility] centerPreventiceRegalos Y Amigos mail-back program, or flush them down the toilet, following guidance from the Food and Drug Administration (www.fda.gov/Drugs/ResourcesForYou). ? Visit www.cdc.gov/drugoverdose to learn about the risks of opioids abuse and overdose. ? If you believe you may be struggling with addiction, tell your health residential care officer and ask for guidance or call [facility]?S National Helpline at 1-372-557-TVHQ. c Source: US Department of Health and Human Services/Center for Disease Control & Prevention [facility] (more content not included)...NormalMansfield HospitalHep Func Panelon 74-60-9960Sgdwfgb [Mass/Vol]3.8 g/dLNormal 3.3-5.0M[facility] HospitalComment on above:Performed By: #### 15489834, 0481728, 1711039, 1973653, 6416244, 69328668, 7940327 ####[facility] [address] [place], [place] [address]Jgoaukd/Globulin (S) [Mass conc ratio]1.7Zmrpkj9.1-2.2Fisher [facility] Cross HospitalComment on above:Performed By: #### 97245710, 2518207, 8173337, 6553090, 4484639, 50692718, 8489248 ####[facility] [address] [place], [place] [address]LZO [Catalytic activity/Vol]58 Int._Unit/ASembmv44-56UburcwMansfield Hospital Comment on above:Performed By: #### 87524554, 5588151, 8849495, 6475407, 6413507, 43178330, 8263149 ####[facility] [address] [place], [place] [address]GOR No additional P-5'-P [Catalytic activity/Vol]66 Int._Unit/LHigh6-46M[facility]field HospitalComment on above:Performed By: #### 69666423, 5082041, 0449777, 6215676, 7247777, 13192602, 7075273 ####[address] [address]ZBT [Catalytic activity/Vol]81 Int._Unit/LHigh5-43Mansfield HospitalComment on above: Performed By: #### 25223348, 6190357, 4275236, 9970291, 4524851, 23254645, 0402086 ####[address] [address]Mldlsbags [Mass/Vol]0.5 mg/dLNormal0.0-1.1FPremier Health Atrium Medical Center Comment on above:Performed By: #### 67630314, 4111836, 3565046, 8868838, 2660817, 05343465, 8221195 ####[address] [address]Bidbfbpbn.direct [Mass/Vol]0.1 mg/dLNormal0.1-0.4FPremier Health Atrium Medical CenterComment on above:Performed By: #### 67822646, 2198395, 9271798, 3431850, 7199406, 13072247, 2481447 ####[address] [address]Vmsfdlaos.indirect [Mass or moles/Vol]0.4 mg/dLNormal0.1-0.9M[facility]field HospitalComment on above: Performed By: #### 57085281, 0058366, 8119286, 6576667, 2115844, 08027005, 3124678 ####[address] [address]Yydhujpp (S) [Mass/Vol]2.9 g/dLNormal1.4-4.0[facility] Comment on above:Performed By: #### 52959183, 8235077, 4689498, 9378363, 9539781, 60131766, 3969249 ####[address] [address]Uolthpv [Mass/Vol]6.7 g/dLNormal6.0-7.8M[facility] HospitalComment on above:Performed By: #### 08788248, 6973716, 3774168, 5518822, 9397693, 47284499, 7704097 ####[facility] [address] [place], [place] [address]BkkW7xex 29-34-5238FpB2h (Bld) [Mass fraction]5.5 %Normal <=5.9M[facility] HospitalComment on above:Performed By: #### 9502133, 13511342, 4154710, 7862812, 5444079, 5027902 #### [facility] [address] [place], [place] [address]Urltiubfvblbaxpyn Note - Case Manageron 07-03-2023 Interdisciplinary Note [...] white board updated. Anticipated DC TBD. CRM followingNoAultman Alliance Community Hospital Comment on above:Result Comment: Electronically Signed By: Brigitte Nazario\.zak\Date and Time Signed: 07/03/23 13:05 ESTLipid Panelon 07-03-2023 Cholesterol [Mass/Vol]145 mg/rXIypovh551-334WftdwlMansfield HospitalComment on above:Performed By: #### 0906981, 46413789, 0019015, 3701177, 1653634, 2809857 #### [facility] [address], [place] [address]Rjrvferxvzm in HDL [Mass/Vol]43 mg/dLInvalid Interpretation CodeMansfield HospitalComment on above:Result Comment: HDL > or equal to 60 mg/dL: Low cardiovascular risk HDL < 40 mg/dL : High cardiovascular riskPerformed By: #### 3661281, 44388174, 6656426, 3167647, 1557063, 0275786 #### [facility] [address], [place] [address]Zkmhlquqqfa in LDL [Mass/Vol]99 mg/dLNormal<=129Mansfield HospitalComment on above:Performed By: #### 4315499, 04574194, 2379158, 3013580, 2408933, 4255918 #### [facility] [address], [place] [address]Pltocvwvvny in VLDL [Mass/Vol]17 mg/dLNormal7-40M[facility]field HospitalComment on above:Performed By: #### 1816466, 82196796, 8592154, 9915997, 5284015, 3743587 #### [facility] [address], [place] [address]Tunsjspursog [Mass/Vol]85 mg/dLNormal<=149M[facility]field HospitalComment on above:Performed By: #### 9551584, 38214522, 0288314, 8917094, 9900299, 3887827 #### [facility] [address], [place] [address]Acogluskzzc 85-26-4526Yhmqymtna [Mass/Vol]2.0 mg/dLNormal 1.3-2.4Fisher [facility] Cross HospitalComment on above:Performed By: #### 50569936, 5674215, 9216352, 0693565, 9547765, 35189296, 9732419 ####[facility] [address] [place], [place] [address]Raigwpa from Medicareon 14-28-3790Xuqyeyj from Medicare [id number]#1.00TIFFNormalMansfield HospitalMonitor Recordon 35-35-8005Shwifcz Record [id number]#1.00[facility] Hospital[facility] [id number]#1.00ERNESTINEFLalitha Yen [facility] Hospital[facility] Record [id number]#1.00[place] HospitalProgress Note-Physicianon 95-32-0374Frppaant Note-PhysicianAssessment/Plan 73-year-old female with history of urethral [...] I ordered echocardiogram. Ordered: Echo Transthoracic Complete [facility] Hospital Care/Day Moderate 35 Minutes 34174 2. Elevated troponin (R79.89: Other specified abnormal findings of blood chemistry) Secondary to type II non-ST segment elevation myocardial infarction from above. Echocardiogram ordered. Cardiology consult pending. Continue on aspirin. Ordered: Echo Transthoracic Complete [facility] Hospital Care/Day Moderate 35 Minutes 34791 3. Urinary hesitancy (R39.11: Hesitancy of micturition) Secondary to urethral stricture. Patient is status post Robles catheter placement for urinary retention. She will follow-up with urologist as outpatient. Ordered: [facility] Hospital Care/Day Moderate 35 Minutes 36612 4. Constipation (K59.00: Constipation, unspecified) Started patient on MiraLAX and lactulose. Ordered: lactulose, 20 gram = 30 mL, Syrup, Oral, Once, Stop date 07/03/23 12:00:00 EST, Routine, Start date07/03/23 12:00:00 EST, 07/03/23 12:00:00 EST polyethylene glycol 3350, 17 gram = 1 EA, Powder-Recon, Oral, Daily, Routine, Start date 07/03/23 12:00:00 EST, 07/03/23 12:00:00 EST [facility] Hospital Care/Day Moderate 35 Minutes 98187 5. Other urethral stricture, female (N35.82: Other urethral stricture, female) Resulting in urinary retention. Patient is status post Robles catheter during this admission. Gets dilation of the ureter every 6 months. Urology consult pending. 6. On deep vein thrombosis (DVT) prophylaxis (Z79.899: Other intermediate (current) drug therapy) Lovenox. Disposition: Pending echocardiogram, cardiology and urology consult. I discussed the diagnosis and plan of care with the patient at the bedside. Moderate level of MDM based on addressing above issues. This documentation was transcribed using voice recognition software. Several attempts were made to ensure accuracy. However inadvertent computerized boatwright errors may be present. Nahid Serrato. Hospitalist. [...] 22:10:00) Lymph Auto: 15.3 % (07/02/23 22:10:00) [place] Auto: 7.7 % (07/02/23 22:10:00) Eos Auto: 0 % (07/02/23 22:10:00) Baso (more content not included)...[facility] CenterComment on above:Result Comment: Electronically Signed By: JAZMÍN MCMAHON, Nahid\.br\Date and Time Signed: 07/03/23 10:57 ESTTS With T4fr Reflexon 75-92-3127IXC Qn3.83 m[IU]/LNormal0.34-5.60M[facility]field HospitalComment on above:Performed By: #### 3868601, 11663706, 8236582, 9560171, 9104315, 5183134 #### [facility] [address], [place] [address]Ysrqmdhvgm 26-35-9765Bafsdmdh I.cardiac [Mass/Vol]27.10 pg/mL Zlpskw21.10-27.10Mansfield HospitalComment on above:Result Comment: The 95% CI (Confidence Interval) PPV (Positive Predictive Value) for myocardial infarction in females is 38 pg/mL, in males 51 pg/mL. The results should be used in conjunction with clinical conditions of myocardial infarction. (Access High Sensitivity Troponin I Instructions For Use, [employer], March 2018)Performed By: #### 7660084, 26473459, 0757984, 7782099, 4738056, 3345497 #### [facility] [address], [place] [address]Pmmutukt 0 Hr.on 12-89-8686Ykdfmcct I.cardiac [Mass/Vol]27.30 pg/mFHbtt53.10-27.10M[facility]field HospitalComment on above:Result Comment: The 95% CI (Confidence Interval) PPV (Positive Predictive Value) for myocardial infarction in females is 38 pg/mL, in males 51 pg/mL. The results should be used in conjunction with clinical conditions of myocardial infarction. (Blackstrap High Sensitivity Troponin I Instructions For Use, [employer], March 2018)Performed By: #### 88607082, 7880551, 2657323, 6090407, 5240799, 76437081, 6384059 ####[facility] [address] [place], [place] [address]Hzwcdkfw 3 Hr.Ordered By: SYSTEM SYSTEM on 07-03-2023 Troponin I.cardiac [Mass/Vol]27.70 pg/pEIdtl50.10-27.10[facility] RemisolComment on above:Interpretive Data: The 95% CI (Confidence Interval) PPV (Positive Predictive Value) for myocardial infarction in females is 38 pg/mL, in males 51 pg/mL. The results should be used in conjunction withclinical conditions of myocardial infarction. (Access High Sensitivity Troponin I Instructions For Use, [employer], March 2018)Result Comment: The 95% CI (Confidence Interval) PPV (Positive Predictive Value) for myocardial infarction in females is 38 pg/mL, in males 51 pg/mL. The results should be used in conjunction with clinical conditions of myocardial infarction. (Access High Sensitivity Troponin I Instructions For Use, [employer], March 2018)Performed By: #### 2667276, 44288521, 4499278, 3197580, 8481368, 9994681 #### [facility] [address] [place], [place] [address]WH Chest Single Viewon 33-41-4028PN Chest Single ViewExam Date/Time: 07/02/2023 23:18 EST [...] Kar in mGy = na DAP = naNormalMansfield HospitalAuto Diffon 19-82-6693Inyasghaq/100 WBC (Bld)0.3 %Normal0.0-2.0M[facility]field HospitalComment on above:Order Comment: Order Added by Discern Expert.Performed By: #### 92535249, 8146361, 9718313, 4289322, 5444543, 71819274, 2319264 ####[facility] [address] [place], [place] [address]Qlvnxemty/Leukocytes Auto (Bld) [Pure # fraction]0.0 E9/LNormal0.0-0.2Fisher [facility] Cross HospitalComment on above: Order Comment: Order Added by Discern Expert.Performed By: #### 07636957, 7616978, 4211656, 3311184, 5783545, 94170002, 3473563 ####Farshad [address] [address]Uvhonkglpxc/100 WBC (Bld)0.0 % Normal0.0-8.0M[facility]field HospitalComment on above:Order Comment: Order Added by Discern Expert.Performed By: #### 24016134, 6753249, 6360291, 8164623, 1402597, 08554643, 5714819 ####Yen [address] [address]Azqeltugetq/Leukocytes Auto (Bld) [Pure # fraction]0.0 E9/L Normal0.0-0.5FPremier Health Atrium Medical CenterComment on above:Order Comment: Order Added by Discern Expert.Performed By: #### 29559281, 8729642, 1486017, 7411064, 6490979, 58739035, 4949890 ####Yen [address] [address]Jirphnbunyc/100 WBC (Bld)15.3 %Wesjoj95.0-50.0M[facility]field HospitalComment on above:Order Comment: Order Added by Discern Expert. Performed By: #### 49854557, 5357414, 3471633, 7545121, 4139270, 14603196, 6521335 ####Yen [address] [address]Nhgyjszvtoa/Leukocytes Auto (Bld) [Pure # fraction]0.9 E9/LLow1.0-4.0M[facility] HospitalComment on above:Order Comment: Order Added by Discern Expert.Performed By: #### 15539847, 0915978, 8608165, 2764898, 4665738, 45926101, 7682037 ####Yen [address] [address]Xzxrqrtjb/100 WBC (Bld)7.7 %Normal4.0-14.0M[facility] HospitalComment on above:Order Comment: Order Added by Discern Expert. Performed By: #### 56767607, 6950012, 5687132, 4292517, 5658998, 20528088, 7025737 ####[place] [address] [place], [place] [address]Frnipimnm/Leukocytes Auto (Bld) [Pure # fraction]0.5 E9/LNormal0.2-1.0 [facility] HospitalComment on above:Order Comment: Order Added by Discern Expert.Performed By: #### 31030265, 4203713, 8422894, 8510147, 9424258, 52414094, 6413727 ####[address] [address]Egqelyspsao/100 WBC (Bld)76.7 %High36.0-75.0M[facility]field HospitalComment on above:Order Comment: Order Added by Discern Expert. Performed By: #### 22277468, 8598382, 3163257, 9334399, 1915665, 41138574, 7670330 ####[address] [address]Pbxjaluysui/Leukocytes Auto (Bld) [Pure # fraction]4.7 E9/LNormal2.0-7.5 [facility] HospitalComment on above:Order Comment: Order Added by Discern Expert.Performed By: #### 20713291, 6645539, 6326965, 1638329, 9318124, 84802223, 9629803 ####[address] [address]JAXro 58-28-2395Ctwhydbpsg [Mass/Vol]1.0 mg/dLNormal0.5-1.3 [facility] HospitalComment on above:Performed By: #### 16906238, 2917198, 7610446, 1324273, 1218958, 38983113, 8229298 ####[place] [address] [place], [place] [address]Yqlw nitrogen [Mass/Vol]13 mg/dLNormal5-21M[facility] HospitalComment on above:Performed By: #### 54997457, 3456490, 5422504, 3957134, 2698031, 10875559, 9582387 ####[facility] [address] [place], [place] [address]Qwib nitrogen/Creatinine [Mass ratio]13 No YouczJoalso63-77QfqferMansfield HospitalComment on above:Performed By: #### 73487610, 9610439, 0804530, 5580633, 8651593, 27046612, 5297011 ####[facility] [address] [place], [place] [address]Lghqy gap [Moles/Vol]13 mmol/LNormal6-16M[facility] HospitalComment on above:Performed By: #### 21098008, 0325846, 2099786, 8343719, 2488763, 63991762, 2849379 ####[address] [address]Ucvsscb [Mass/Vol]9.1 mg/dLNormal8.9-11.1FPremier Health Atrium Medical CenterComment on above:Performed By: #### 16523947, 8354560, 6929949, 4923610, 3275894, 51063211, 5662093 ####[place] [address] [place], [place] [address]Qvrvyros [Moles/Vol]100 mmol/OSwc169-109BdvvnbMansfield HospitalComment on above:Performed By: #### 61354640, 7439858, 1647290, 2855688, 9307387, 84267559, 7770367 ####[place] [address] [place], [place] [address]IJ7 [Moles/Vol]24 mmol/AOsckqh19-15 [facility] HospitalComment on above:Performed By: #### 33135462, 0252433, 8782982, 7734745, 4640492, 48852314, 3407237 ####[facility] [address] [place] [address]Mybnjno [Mass/Vol]129 mg/dL Hwzdby98-132UgyikgMansfield HospitalComment on above:Result Comment: If this glucose result represents a fasting glucose, interpretation should refer tothe following reference range: 55-99 mg/dLPerformed By: #### 59312083, 3409956, 9629673, 9700611, 3751402, 57626925, 4334810 ####[facility] [address] [place], [place] [address]Tvgstwyrw [Moles/Vol]3.8 mmol/LNormal 3.5-5.3FPremier Health Atrium Medical CenterComment on above:Performed By: #### 73719847, 8549762, 5451745, 4085085, 2679173, 05843200, 8846505 ####[facility] [address] [place], [place] [address]Ypchmh [Moles/Vol]133 mmol/L Cle922-150WubesmMansfield HospitalComment on above:Performed By: #### 29099495, 5459370, 4972503, 4044423, 8911997, 74787779, 1262461 ####[facility] [address] [place], [place] [address]RJT w/ Auto Diffon 44-79-7873Hxqhtmifcao distribution width (RBC) [Ratio]13.5 %Wmzyto73.9-14.2 [facility] HospitalComment on above:Performed By: #### 62442589, 8705164, 3468087, 2357519, 3857837, 67200991, 5594627 #### [facility] [address], [place] [address]Velmoftgpj (Bld) [Volume fraction]38.5 %Prcart08.0-46.0M[facility] HospitalComment on above:Performed By: #### 78042639, 6035728, 1865833, 6322358, 0687288, 40609262, 7063356 #### [facility] [address], [place] [address]Gjlkdgwtmj (Bld) [Mass/Vol]12.7 g/eZQqvbpt64.0-16.0[facility] HospitalComment on above:Performed By: #### 76871732, 0501399, 6686492, 0318487, 5017560, 78313796, 4148523 #### [facility] [address], [place] [address]HZW (RBC) [Entitic mass]29.7 vjVqmgde73.0-34.0[facility] HospitalComment on above:Performed By: #### 44823386, 5556718, 4403812, 8050370, 4159301, 89039756, 3447994 #### [facility] [address] [place] [address] (RBC) [Mass/Vol]32.9 g/xDBckvgt43.4-36.0M[facility] HospitalComment on above:Performed By: #### 40352859, 6151899, 9612894, 0057621, 5207503, 09681356, 8641699 #### [facility] [address] [place] [address]G (RBC) [Entitic vol]90.3 xJSpurnc87.0-100.0Mansfield HospitalComment on above:Performed By: #### [id number], 4912595, 9486100, 2247512, 1862507, 38347422, 3528610 #### [facility] [address], [place] [address]Hmlmchdc mean volume (Bld) [Entitic vol]9.1 fLNormal6.4-10.8 [facility] HospitalComment on above:Performed By: #### [id number], 7247172, 1921026, 9635510, 7597683, 36826954, 4353001 #### [facility] [address], [place] [address]Drlwjouvq (Bld) [#/Vol]183.0 E9/LIfjgqc572.0-500.0M[facility]field HospitalComment on above:Performed By: #### 31009968, 8436630, 6225533, 5245103, 5316179, 78435276, 3012470 #### [facility] [address], [place] [address]YUH (Bld) [#/Vol]4.3 E12/LNormal4.3-5.9M[facility]field HospitalComment on above:Performed By: #### [id number], 5685504, 8865226, 0355246, 4250869, 30659883, 9112208 #### [facility] [address], [place] [address]UZH corrected for nucl RBC Auto (Bld) [#/Vol]6.2 E9/LNormal 4.0-11.0M[facility]field HospitalComment on above:Performed By: #### 53896789, 8306657, 7581271, 8868759, 7946590, 20881829, 8863323 #### [facility] [address], [place] [address]ENEQMGOUAXxaoylc By: SYSTEM SYSTEM on 84-79-3193Wickvsd [Mass/Vol]3.8 g/dLNormal3.3 - 5.0 gm/dLFTMC RemisolAlbumin/Globulin [Mass ratio] 1.3 {ratio}Normal1.1 - 2.2[facility] RemisolALP [Catalytic activity/Vol]58 [iU]/d Jvmesk64 - 98 Int._Unit/LFTMC RemisolALT No additional P-5'-P [Catalytic activity/Vol]66 [iU]/dHigh6 - 46 Int._Unit/LFTMC RemisolAnion gap [Moles/Vol]13 mmol/LNormal6 - 16 mEq/LFTMC RemisolAST [Catalytic activity/Vol]81 [iU]/dHigh5 - 43 Int._Unit/LFTMC RemisolBilirubin [Mass/Vol]0.5 mg/dLNormal0.0 - 1.1 mg/dL [facility] RemisolBilirubin.direct [Mass/Vol]0.1 mg/dLNormal0.1 - 0.4 mg/dLFTMC RemisolBilirubin.indirect [Mass or moles/Vol]0.4 mg/dLNormal0.1 - 0.9 mg/dLFTMC RemisolCalcium [Mass/Vol]9.1 mg/dLNormal8.9 - 11.1 mg/dLFTMC RemisolChloride [Moles/Vol]100 mmol/DIzw324 - 111 mmol/LFTMC RemisolCO2 [Moles/Vol]24 mmol/L Lseung30 - 31 mmol/LFTMC RemisolCreatinine [Mass/Vol]1.0 mg/dLNormal0.5 - 1.3 mg/dLFTMC RemisolGFR/1.73 sq M.predicted among non-blacks MDRD (S/P/Bld) [Vol rate/Area]59 mL/min/1.73 s0Eybllo>=59mL/min/1.73 m2FT Chem SComment on above: Interpretive Data: Chronic kidney disease could be indicated at eGFR's of less than 60 mL/min/1.73m2. Kidney failure is indicated at less than 15 mL/min/1.73m2.Globulin (S) [Mass/Vol]2.9 g/dLNormal1.4 - 4.0 gm/dLFT Remisol Glucose [Mass/Vol]129 mg/wIIyrjfe87 - 199 mg/dLFT RemisolComment on above: Interpretive Data: If this glucose result represents a fasting glucose, interpretation should referto the following reference range: 55-99 mg/dL Magnesium [Mass/Vol]2.0 mg/dLNormal1.3 - 2.4 mg/dLFTMC RemisolPotassium [Moles/Vol]3.8 mmol/LNormal3.5 - 5.3 mmol/LFTMC RemisolProtein [Mass/Vol]6.7 g/dLNormal6.0 - 7.8 gm/dLFT RemisolSodium [Moles/Vol]133 mmol/FDzy063 - 145 mmol/LFTMC RemisolTroponin I.cardiac [Mass/Vol]27.30 pg/eHWrpw07.10 - 27.10 pg/mLFTMC RemisolComment on above:Interpretive Data: The 95% CI (Confidence Interval) PPV (Positive Predictive Value) for myocardial infarction in females is 38 pg/mL, in males 51 pg/mL. The results should be used in conjunction with clinical conditions of myocardial infarction. (Access High Sensitivity Troponin I Instructions For Use, Marlys [place], March 2018)Urea nitrogen [Mass/Vol]13 mg/dLNormal5 - 21 mg/dLH[facility]CREST [facility] RemisolUrea nitrogen/Creatinine [Mass ratio]13 mg/mzWmgecc40 - 20[facility] RemisolCOAGULATION Ordered By: Lan Eastman on 71-12-9978uOCQ Coag (PPP) [Time]30.2 cWjnebc92.1 - 36.5 second(s)[facility] Auto CoagComment on above:Interpretive Data: Parameter 15 [...] the same coagulation reagent and instrumentation as [facility]. Currently there are no coagulation studies available worldwide for children to 14 days, andno normal ranges. Heparin therapeutic range (represented by Anti-Factor Xa activity of 0.2 - 0.4 U/mL) corresponds to PTT of 56.6 - 109.0 sec.INR Coag (PPP) [Relative time]1.2 {INR}Invalid Interpretation CodeHILLCREST HOSPITAL SOUTH Auto CoagComment on above:Interpretive Data: INR results are specifically intended to assess patients stabilized on long-term Anticoagulation therapy suggested INR s Less Intensive Anticoagulation 2.0 3.0 Conventional Range 3.0 4.5PT Coag (PPP) [Time]13.2 sHigh9.4 - 12.5 second(s)[facility] Auto CoagComment on above:Interpretive Data: 15 days [...] the same coagulation reagent and instrumentation as [facility]. Currently there are no coagulation studies available worldwide for children to 14 days, andno normal ranges.Consent for Treatmenton 55-57-8015Hdfhvsk for Treatment [id number]#1.00Corey HospitalHEMATOLOGYOrdered By: SYSTEM SYSTEM on 71-54-5089Cbgjszsvf/100 WBC (Bld) 0.3 %Normal0.0 - 2.0 %[facility] HemeAutoSSBasophils/Leukocytes Auto (Bld) [Pure # fraction]0.0 E9/LNormal0.0 - 0.2 E9/LFTMC HemeAutoSSEosinophils/100 WBC (Bld)0.0 %Normal0.0 - 8.0 %[facility] HemeAutoSSEosinophils/Leukocytes Auto (Bld) [Pure # fraction]0.0 E9/LNormal0.0 - 0.5 E9/LFTMC HemeAutoSSLymphocytes/100 WBC (Bld) 15.3 %Vqofoi47.0 - 50.0 %[facility] HemeAutoSSLymphocytes/Leukocytes Auto (Bld) [Pure # fraction]0.9 E9/LLow1.0 - 4.0 E9/LFTMC HemeAutoSSMonocytes/100 WBC (Bld)7.7 % Normal4.0 - 14.0 %[facility] HemeAutoSSMonocytes/Leukocytes Auto (Bld) [Pure # fraction]0.5 E9/LNormal0.2 - 1.0 E9/LFTMC HemeAutoSSNeutrophils/100 WBC (Bld) 76.7 %High36.0 - 75.0 %[facility] HemeAutoSSNeutrophils/Leukocytes Auto (Bld) [Pure # fraction]4.7 E9/LNormal2.0 - 7.5 E9/LFTMC HemeAutoSSHEMATOLOGYOrdered By: Lan Eastman on 99-83-0716Ycxuzjvmqsm distribution width (RBC) [Ratio]13.5 %Normal 10.9 - 14.2 %[facility] HemeAutoSSHematocrit (Bld) [Volume fraction]38.5 %Qpsook51.0 - 46.0 %[facility] HemeAutoSSHemoglobin (Bld) [Mass/Vol]12.7 g/fIAugnes48.0 - 16.0 gm/dL [facility] HemeAutoSSMCH (RBC) [Entitic mass]29.7 oaLeoyqt51.0 - 34.0 pgFTMC HemeAutoSSMCHC (RBC) [Mass/Vol]32.9 g/eRDyrsaj45.4 - 36.0 gm/dLFTMC HemeAutoSS MCV (RBC) [Entitic vol]90.3 fLVcpicj24.0 - 100.0 fLFTMC HemeAutoSSPlatelet mean volume (Bld) [Entitic vol]9.1 fLNormal6.4 - 10.8 fLFTMC HemeAutoSSPlatelets (Bld) [#/Vol]183.0 E9/VDvdnwv985.0 - 500.0 E9/LFTMC HemeAutoSSRBC (Bld) [#/Vol] 4.3 E12/LNormal4.3 - 5.9 E12/LFTMC HemeAutoSSWBC corrected for nucl RBC Auto (Bld) [#/Vol]6.2 E9/LNormal4.0 - 11.0 E9/LFTMC HemeAutoSSPT & PTTon 07-02-2023 aPTT Coag (PPP) [Time]30.2 second(s)Kferep98.1-36.5[facility] Comment on above:Result Comment: Parameter 15 [...] the same coagulation reagent and instrumentation as [facility]. Currently there are no coagulation studies available worldwide for children to 14 days, andno normal ranges. Heparin therapeutic range (represented by Anti-Factor Xa activity of 0.2 - 0.4 U/mL) corresponds to PTT of 56.6 - 109.0 sec.Performed By: #### 1236906, 11611495, 3038282, 2539731, 3280531, 8601353 #### [facility] [address], [place] [address]OQL Coag (PPP) [Relative time]1.2 {INR}Invalid Interpretation CodeMansfield HospitalComment on above:Result Comment: INR results are specifically intended to assess patients stabilized on long-term Anticoagulation therapy suggested INR?s ?Less Intensive Anticoagulation? 2.0 ? 3.0 Conventional Range 3.0 ? 4.5Performed By: #### 5046935, 17021082, 7743664, 6000613, 3410479, 2565159 #### [facility] [address], [place] [address]DT Coag (PPP) [Time]13.2 second(s)High9.4-12.5[facility] HospitalComment on above:Result Comment: 15 days - [...] the same coagulation reagent and instrumentation as [facility]. Currently there are no coagulation studies available worldwide for children to 14 days, andno normal ranges.Performed By: #### 1684658, 21694256, 2661417, 2965526, 0511989, 2460959 #### [facility] [address], [place] [address]NN With Cult Reflexon 82-26-4614Fsosudkh LM Ql (Urine sed)TRACE NormalTraceMansfield HospitalComment on above:Order Comment: Urinary Catheter Insertion triggered Urinalysis With Culture Reflex order by discern. Performed By: #### 5292749, 37176027, 6872168, 1618265, 3982190, 8313714 #### [facility] [address], [place] [address]Jtvdmmvsq Ql (U)NegativeNormalNegativeMansfield HospitalComment on above:Order Comment: Urinary Catheter Insertion triggered Urinalysis With Culture Reflex order by discern.Performed By: #### 6337505, 36960931, 8438149, 0786820, 7590347, 8119537 #### [facility] [address], [place] [address]Pqktkpq (U)CLEARNormalClearMansfield HospitalComment on above:Order Comment: Urinary Catheter Insertion triggered Urinalysis With Culture Reflex order by discern.Performed By: #### 9438452, 67154992, 1922994, 0668801, 8219097, 8170426 #### [facility] [address], [place] [address]Uitvk (U)YELLOWNormalYellowMansfield HospitalComment on above:Order Comment: Urinary Catheter Insertion triggered Urinalysis With Culture Reflex order by discern.Performed By: #### 3148271, 41420222, 1515877, 3181298, 3283082, 7441498 #### [facility] [address], [place] [address]Qtorubjztr cells.squamous LM.HPF (Urine sed) [#/Area]9-10Normal 0-2[facility] HospitalComment on above:Order Comment: Urinary Catheter Insertion triggered Urinalysis With Culture Reflex order by discern.Performed By: #### 5632509, 75319734, 0938173, 3706231, 6763238, 6837509 #### [facility] [address], [place] [address]Nzcnlaf Test strip (U) [Mass/Vol]NegativeNormalNegativeMansfield HospitalComment on above:Order Comment: Urinary Catheter Insertion triggered Urinalysis With Culture Reflex order by discern.Performed By: #### 8884651, 44782803, 5435014, 1874429, 9255670, 8192051 #### [facility] [address], [place] [address]Pvknyehtte Ql (U)TRACEAbSt. Anthony's HospitalComment on above:Order Comment: Urinary Catheter Insertion triggered Urinalysis With Culture Reflex order by discern.Performed By: #### 9125303, 32200447, 6945652, 4745591, 4861130, 1047516 #### [facility] [address], [place] [address]Zmlqreh (U) [Mass/Vol]TRACEInvalid Interpretation CodeNegative Mansfield HospitalComment on above:Order Comment: Urinary Catheter Insertion triggered Urinalysis With Culture Reflex order by discern.Performed By: #### 8126591, 51158576, 6695802, 1030653, 6720129, 9574857 #### [facility] [address], [place] [address]Abybqwh.plasma/[place].RBC (Bld) [Mass ratio]5-6Dclxhv8-9XgucxiPremier Health Atrium Medical CenterComment on above:Order Comment: Urinary Catheter Insertion triggered Urinalysis With Culture Reflex order by discern.Performed By: #### 2931568, 01133204, 7432374, 8505358, 3927158, 0586506 #### [facility] [address], [place] [address]Nvpzw Ql (Urine sed)TRACENormalFisher [facility]ce[facility] Medical Center Comment on above:Order Comment: Urinary Catheter Insertion triggered Urinalysis With Culture Reflex order by discern.Performed By: #### 1289641, 77535258, 5986147, 4541446, 1621889, 7307130 #### [facility] [address] [place] [address]Hnxiagw Ql (U)NegativeCleveland Clinic Avon Hospital Comment on above:Order Comment: Urinary Catheter Insertion triggered Urinalysis With Culture Reflex order by discern.Performed By: #### 9953067, 30692801, 1038710, 0478917, 7303072, 0841228 #### [facility] [address] [place] [address]mB (U)5.5 [pH]Invalid Interpretation Code5.0-9.0M[facility]field HospitalComment on above:Order Comment: Urinary Catheter Insertion triggered Urinalysis With Culture Reflex order by discern.Performed By: #### 7364942, 89245860, 1726556, 4995161, 6624109, 8447024 #### [facility] [address] [place] [address]Dyntarz (U) [Mass/Vol]NegativermohNegSt. Mary's Medical CenterComment on above:Order Comment: Urinary Catheter Insertion triggered Urinalysis With Culture Reflex order by discern.Performed By: #### 7592409, 69267260, 3095274, 9425529, 8201100, 1648970 #### [facility] [address] [place] [address]Qxwrqxki gravity (U) [Rel density]1.025Invalid Interpretation Code1.005-1.030M[facility] HospitalComment on above:Order Comment: Urinary Catheter Insertion triggered Urinalysis With Culture Reflex order by discern.Performed By: #### 0305955, 31341956, 1506794, 4045125, 8965122, 0271376 #### [facility] [address] [place] [address]Yhkm of Urine collection methodFoleyNoAultman Alliance Community HospitalComment on above:Order Comment: Urinary Catheter Insertion triggered Urinalysis With Culture Reflex order by discern.Performed By: #### 7140438, 75006809, 2690097, 0607536, 3376541, 6997532 #### [facility] [address] [place] [address]Hphllniecwez Qn (U)0.2 {Judith'U}/dLNormal0.0-1.0M[facility] HospitalComment on above:Order Comment: Urinary Catheter Insertion triggered Urinalysis With Culture Reflex order by discern.Performed By: #### 0787708, 24396526, 9940572, 2925875, 6546218, 7189141 #### [facility] [address] [place] [address]BKH Auto Ql (U)NegativeNormalNegativeMansfield HospitalComment on above:Order Comment: Urinary Catheter Insertion triggered Urinalysis With Culture Reflex order by discern.Performed By: #### 0285151, 45230709, 0879867, 1961514, 3384816, 5694681 #### [facility] [address] [place] [address]SVJ LM.HPF (Urine sed) [#/Area]5-6Ytgzdv9-0PrkvelPremier Health Atrium Medical CenterComment on above:Order Comment: Urinary Catheter Insertion triggered Urinalysis With Culture Reflex order by discern.Performed By: #### 0932229, 29140931, 3054409, 2875121, 6155524, 6516114 #### [facility] [address] [place] [address]MKJSNSXKUXLxpewwz By: Lan Eastman on 65-04-8872Wepccyza LM Ql (Urine sed)Trace /HPFNormalTrace/HPFHILLCREST [facility]ITAL [facility] UA Auto SSBilirubin Ql (U)Negative (07/02/23 10:18 PM)NormalNegativeHILLCREST HOSPITAL SOUTH UA Auto SSClarity (U)Clear (07/02/23 10:18 PM)NormalClearFINTEGRIS [facility] [place] [facility] Auto SSColor (U)Yellow (07/02/23 10:18 PM)NormalYellowHILLCREST HOSPITAL SOUTH UA Auto SSEpithelial cells.squamous LM.HPF (Urine sed) [#/Area]9-10 /HPFNormal0-2/HPFHILLCREST HOSPITAL SOUTH UA Auto SSGlucose Test strip (U) [Mass/Vol]Negative (07/02/23 10:18 PM)NormalNegativeHILLCREST HOSPITAL SOUTH UA Auto SSHemoglobin Ql (U)Trace *ABN* (07/02/23 10:18 PM)Invalid Interpretation CodeNegativeHILLCREST HOSPITAL SOUTH UA Auto SSKetones (U) [Mass/Vol]Trace *NA* (07/02/23 10:18 PM)Invalid Interpretation CodeNegativeHILLCREST HOSPITAL SOUTH UA Auto SS [place].plasma/[place].RBC (Bld) [Mass ratio]0-3 /HPFNormal0-3/HPFHILLCREST HOSPITAL SOUTH UA Auto SSMucus Ql (Urine sed)Trace (07/02/23 10:18 PM)NormalHILLCREST HOSPITAL SOUTH UA Auto SSNitrite Ql (U)Negative (07/02/23 10:18 PM)NormalNegativeHILLCREST HOSPITAL SOUTH UA Auto SSpH (U)5.5 *NA* (07/02/23 10:18 PM)Invalid Interpretation Code5.0 - 9.0[facility] UA Auto SSProtein (U) [Mass/Vol]Negative (07/02/23 10:18 PM)NormalNegativeHILLCREST HOSPITAL SOUTH UA Auto SSSpecific gravity (U) [Rel density]1.025 *NA* (07/02/23 10:18 PM)Invalid Interpretation Code1.005 - 1.030[facility] UA Auto SSUA Spec DescFoley (07/02/23 10:18 PM)NormalHILLCREST HOSPITAL SOUTH UA Auto SSUrobilinogen Qn (U)0.0906216 {Judith'U}/dLNormal0.0 - 1.0 EU/dLHILLCREST HOSPITAL SOUTH UA Auto SSWBC Auto Ql (U)Negative (07/02/23 10:18 PM)NormalNegativeHILLCREST HOSPITAL SOUTH UA Auto SSWBC LM.HPF (Urine sed) [#/Area] 0-5 /HPFNormal0-5/HPFHILLCREST HOSPITAL SOUTH UA Auto SSeGFRon 21-16-2162EJD/1.73 sq M.predicted among non-blacks MDRD (S/P/Bld) [Vol rate/Area]59 mL/min/1.73 w0Cipwhs>=59Fisher [facility]ceana Medical CenterComment on above:Order Comment: Order added by Discern Expert.Result Comment: Chronic kidney disease could be indicated at eGFR's of less than 60 mL/min/1.73m2. Kidney failure is indicated at less than 15 mL/min/1.73m2.Performed By: #### [id number], 3490301, 9941376, 1200723, 5590218, 35675677, 9763884 ####[facility] [address] [place], [place] [address]ZF Abdomen/Pelvis w/o Contraston 39-64-1846QP Abdomen/Pelvis w/o ContrastExam Date/Time: 06/30/2023 21:18 EST [...] Given? No Oral contrast amount in ml's: 0[facility] CenterDischarge Instructionson 53-86-1183Feuxuozps Instructions [id number]#1.00TIFFDiley Ridge Medical Center Clinical Summaryon [id number] Clinical Summary [place] [id number] ED Clinical Summary Person Information Name: HARJIT ASENCIO I Patricia/[facility] Age: 73 Years : 1950 Sex: Female Language: Danish PCP: Peggy Nazario MD Marital Status: Visit [...] 00:37:46 07/01/2023 00:37:46 07/01/2023 00:37:46 ADDRESS: [address] [facility] [id number] PHYS DOC NOTES: MEDICAL INFORMATION: Prescriptions Given: New Medications [id number], [address] [place], [place] [id number], [phone] dicyclomine (Bentyl 10 mg Cap) 1 Capsules [...] PATIENT EDUCATION INFORMATION: Instructions: Abdominal Pain, Adult, Ctoe-eb-Iquw Follow up: With: Address: When: Peggy Nazario [place] [address] Business (1) In 3 days 07/04/2023 Comments: You can use the Bentyl, Zofran every 6 hours as needed for pain and nausea. Please follow-up with your primary care doctor next 2 to 3 days for further evaluation management. Please return to the ED for any new or worsening symptoms. DIAGNOSIS: Abdominal pain, acuteNormalFisher Oceana Medical CenterED Note-Physicianon 89-32-3586SD Note-PhysicianBasic Information Time Seen: Koby Masterson DO [...] and Complexity of Problems Differential Diagnosis: [] [facility] Data External documents reviewed: [] My [...] day(s), # 14 cap(s), Refills(s) 0, Pharmacy: [facility] #[id number], 165, cm, 06/30/23 19:37:00 EST, Height/Length Dosing, [...] q8hr, # 12 tab(s), Refills(s) 0, Pharmacy: [facility]#[id number], 165, cm, 06/30/23 19:37:00 EST, Height/Length Dosing, [...] Nazario In 3 days 07/04/20[place] [place] [address] Business(1) Additional Instructions: You can use the Bentyl, Zofran every 6 hours as needed for pain and nausea. Please follow-up with your primary care doctor next 2 to 3 days for further evaluation management.Please return to the ED for any new or worsening symptoms. Patient Education Abdominal Pain, Adult, Syvf-ze-Lrgo Problem List/Past Medical History Ongoing acid reflux Acute ga (more content not included)...[facility] CenterComment on above:Result Comment: Electronically Signed By: Koby Masterson DO\.br\Date and Time Signed: 07/01/23 01:03 SAURAV Patient Education Noteon 82-92-8607ZY Patient Education NoteGastroenterology Abdominal Pain, Adult Many things can cause belly (abdominal) pain. Most times, belly pain is not dangerous. Many cases of belly pain can be watched and treated at home. Sometimes, though, belly pain is serious. Your doctor will try to find the cause of your belly pain. Follow these instructions at home: Medicines ? Take tmip-kis-muznvck and prescription medicines only as told by [...] belly pain for any changes. ? Take vheb-pwv-psyhced and prescription medicines only as told by [...] provider. Document Revised: 12/09/2019 Document Reviewed: 12/09/2019 [employer]Watson [employer] Patient Education ? 2022 [employer] ED Patient Summaryon 60-36-2526PC Patient Summary [place] [id number] Patient Discharge Instructions Person Information Name: HARJIT ASENCIO I Age: 73 Years Arrival Date: 06/30/2023 18:48:02 Discharge Diagnosis: Abdominal pain, acute Primary Care Physician: Peggy Nazario MD Provider Information Primary Provider: Koby Masterson DO [employer] Engineer:None The exam and treatment you received in the Emergency Department were for an urgent problem and are not intended as complete care. It is important that you follow up with a doctor, nurse practitioner,or physician?s bilingual administrative assistant for ongoing care. If your symptoms [...] Follow-up Instructions: With: Address: When: Peggy Nazario [address] [place] [id number] Business (1) In 3 days 07/04/2023 Comments: [...] provider. Patient Education Materials: Abdominal Pain, Adult, Opdb-gl-Ncnm A MESSAGE TO ALL PATIENTS REGARDING OPIOIDS PRESCRIPTION OPIOIDS: WHAT YOU NEED TO KNOW Prescription opioids can be used to help relieve eldqkeog-xo-zzlcxp pain and are often prescribed following a [...] your community drug take- back program or yourPreventicermacy mail-back program, or flush them down the toilet, following guidance from the Food and Drug Administration (www.fda.gov/Drugs/ResourcesForYou). ? Visit www.cdc.gov/drugoverdose to le (more content not included)...Normal [facility] HospitalRAD - Preliminary Cat Scan Reporton [id number] - Preliminary Cat Scan [id number]#1.00TIFF NormalMansfield HospitalAuto Diffon 33-61-5115Cdxrvxmgq/100 WBC (Bld) 0.8 %Normal0.0-2.0M[facility]field HospitalComment on above:Order Comment: Order Added by Discern Expert.Performed By: #### 1504603, 12896193, 0543991, 1196130, 9651360, 3674675 #### [facility] [address] [place] [address]/Leukocytes Auto (Bld) [Pure # fraction]0.0 E9/LNormal 0.0-0.2FPremier Health Atrium Medical CenterComment on above:Order Comment: Order Added by Discern Expert.Performed By: #### 3816930, 87393414, 2235337, 7684156, 8622821, 7685625 #### [facility] [address] [place] [address]Hjcphmsrqyt/100 WBC (Bld)0.2 %Normal0.0-8.0M[facility] HospitalComment on above:Order Comment: Order Added by Discern Expert.Performed By: #### 6326061, 93411840, 5836190, 3749400, 9188677, 4750613 #### [facility] [address] [place] [address]Iwazvdbclmg/Leukocytes Auto (Bld) [Pure # fraction]0.0 E9/L Normal0.0-0.5FPremier Health Atrium Medical CenterComment on above:Order Comment: Order Added by Discern Expert.Performed By: #### 8577517, 41658305, 2163092, 5035353, 6577949, 1993935 #### [facility] [address] [place] [address] 314[address]Dltqyupafxl/100 WBC (Bld)26.7 %Fjghuz23.0-50.0M[facility] HospitalComment on above:Order Comment: Order Added by Discern Expert. Performed By: #### 1040714, 16419939, 8079508, 2382606, 4840618, 5916169 #### [facility] [address] [place] [address]Tymfcrestfv/Leukocytes Auto (Bld) [Pure # fraction]1.2 E9/L Normal1.0-4.0M[facility] HospitalComment on above:Order Comment: Order Added by Discern Expert.Performed By: #### 5849545, 69020951, 1804602, 4696118, 3911266, 3495747 #### [facility] [address] [place] [address]Vivhwuxow/100 WBC (Bld)9.8 %Normal4.0-14.0M[facility]field HospitalComment on above:Order Comment: Order Added by Discern Expert.Performed By: #### 2063913, 07542983, 0001526, 5876662, 3089442, 2612727 #### [facility] [address] [place] [address]47[address]Pzfdhbkku/Leukocytes Auto (Bld) [Pure # fraction]0.4 E9/LNormal 0.2-1.0M[facility] HospitalComment on above:Order Comment: Order Added by Discern Expert.Performed By: #### 9804761, 57353536, 6539894, 6084452, 7100868, 8168690 #### [facility] [address] [place] [address]Iirjqwxsdin/100 WBC (Bld)62.5 %Qpjcuo80.0-75.0M[facility] HospitalComment on above:Order Comment: Order Added by Discern Expert. Performed By: #### 5705023, 03580457, 8680670, 8167468, 5368784, 8008749 #### [facility] [address] [place] [address] 232[address]Qvzqgewyeua/Leukocytes Auto (Bld) [Pure # fraction]2.7 E9/L Normal2.0-7.5FPremier Health Atrium Medical CenterComment on above:Order Comment: Order Added by Discern Expert.Performed By: #### 4373672, 82352326, 5828376, 9692132, 6901666, 4873708 #### [facility] [address], [place] [address]NTJnw 88-47-3218Euwhirlycw [Mass/Vol]0.8 mg/dLNormal0.5-1.3 [facility] HospitalComment on above:Performed By: #### 7781943, 13572365, 6665368, 7664832, 0313678, 8654610 #### [facility] [address], [place] [address]Poek nitrogen [Mass/Vol]12 mg/dLNormal5-21Mansfield HospitalComment on above:Performed By: #### 4679878, 82220456, 8230213, 5049774, 9679602, 8932452 #### [facility] [address] [place] [address] 81934Bqtg nitrogen/Creatinine [Mass ratio]15 No IzpkbQbzlmf17-85 [facility] HospitalComment on above:Performed By: #### 5266198, 98991013, 4275545, 3628536, 0332599, 8190507 #### [facility] [address], [place] [address]Akgdr gap [Moles/Vol]13 mmol/LNormal6-16[facility]field HospitalComment on above:Performed By: #### 9468552, 18124283, 1636478, 6664471, 6965459, 9239186 #### [facility] [address], [place] [address]Gyfdzpn [Mass/Vol]9.5 mg/dLNormal8.9-11.1FPremier Health Atrium Medical CenterComment on above:Performed By: #### 8324099, 46927600, 6493858, 0939736, 0983499, 0773165 #### [facility] [address], [place] [address]Behhictq [Moles/Vol]103 mmol/WVakgdb457-747UdfqbvMansfield HospitalComment on above:Performed By: #### 3126393, 61109840, 8630219, 7254072, 3570418, 9315286 #### [facility] [address], [place] [address]AF2 [Moles/Vol]27 mmol/QUqxxha13-03YvsalyMansfield Hospital Comment on above:Performed By: #### 8049368, 52249548, 1681538, 9256389, 6369333, 6640344 #### [facility] [address], [place] [address]Zzyqcmv [Mass/Vol]110 mg/iWPgphdk82-718TkjnwpMansfield HospitalComment on above:Result Comment: If this glucose result represents a fasting glucose, interpretation should refer tothe following reference range: 55-99 mg/dLPerformed By: #### 2549085, 47554776, 3965382, 2771964, 8768028, 1692265 #### [facility] [address] [place] [address] 64995Dggapodcu [Moles/Vol]4.1 mmol/LNormal3.5-5.3FPremier Health Atrium Medical CenterComment on above:Performed By: #### 6245380, 35950498, 5996803, 9031796, 7260337, 5849685 #### [facility] [address] [place] [address] 47514Evkvtq [Moles/Vol]139 mmol/SQzgmkg262-577PhaobtMansfield HospitalComment on above:Performed By: #### 8062529, 97478783, 0607292, 3608396, 8838788, 0479249 #### [facility] [address] [place] [address] 38443TMA w/ Auto Diffon 88-95-6685Akvyqhdebqj distribution width (RBC) [Ratio]13.7 %Rvhrfv96.9-14.2FPremier Health Atrium Medical CenterComment on above: Performed By: #### 4218239, 03833889, 2726783, 3493117, 5062279, 4099276 #### [facility] [address] [place] [address] 06097Ubhauiniqt (Bld) [Volume fraction]38.0 %Dvpoae27.0-46.0M[facility]field HospitalComment on above:Performed By: #### 4099712, 32311983, 6392227, 9814736, 0913803, 0545797 #### [facility] [address] [place] [address] 19712Gqfgiisalp (Bld) [Mass/Vol]12.5 g/jHGeultf32.0-16.0M[facility]field HospitalComment on above:Performed By: #### 8106960, 28849290, 3053975, 2683942, 9261001, 7640886 #### [facility] [address] [place] [address] 37151RUC (RBC) [Entitic mass]29.9 kvAlzoda92.0-34.0M[facility]field HospitalComment on above:Performed By: #### 7708720, 80647229, 6666441, 6801260, 7116961, 6448230 #### [facility] [address] [place] [address] 168[address]HAUQ (RBC) [Mass/Vol]32.9 g/nFMotyyz74.4-36.0M[facility]field HospitalComment on above:Performed By: #### 5885121, 73856574, 1960699, 3169422, 0392809, 7411496 #### [facility] [address] [place] [address] 59884TCM (RBC) [Entitic vol]90.9 yGYyfpab93.0-100.0M[facility]field HospitalComment on above:Performed By: #### 8938449, 70101625, 9194547, 1472839, 8213290, 2427460 #### [facility] [address] [place] [address] 78960Deoqptzm mean volume (Bld) [Entitic vol]8.7 fLNormal6.4-10.8 [facility] HospitalComment on above:Performed By: #### 7399985, 74050890, 8100300, 9319810, 1602330, 2574713 #### [facility] [address], [place] [address]Yuzznzssp (Bld) [#/Vol]184.0 E9/CGeybvt435.0-500.0Mansfield HospitalComment on above:Performed By: #### 1612721, 48868286, 5604505, 1308389, 8342408, 6206385 #### [facility] [address], [place] [address]MUS (Bld) [#/Vol]4.2 E12/LLow4.3-5.9[facility] Comment on above:Performed By: #### 8148547, 86405557, 9684008, 3956834, 7056373, 2605207 #### [facility] [address], [place] [address]VNB corrected for nucl RBC Auto (Bld) [#/Vol]4.4 E9/LNormal 4.0-11.0M[facility]field HospitalComment on above:Performed By: #### 7232465, 76455089, 9210268, 9240264, 9661734, 3124205 #### [facility] [address], [place] [address]RKCTOWUWGQjswmel By: SYSTEM SYSTEM on 28-20-0698Mpudyqp [Mass/Vol]3.8 g/dLNormal3.3 - 5.0 gm/dLFTMC RemisolAlbumin/Globulin [Mass ratio] 1.3 {ratio}Normal1.1 - 2.2[facility] RemisolALP [Catalytic activity/Vol]56 [iU]/d Grehud48 - 98 Int._Unit/LFTMC RemisolALT No additional P-5'-P [Catalytic activity/Vol]50 [iU]/dHigh6 - 46 Int._Unit/LFTMC RemisolAnion gap [Moles/Vol]13 mmol/LNormal6 - 16 mEq/LFTMC RemisolAST [Catalytic activity/Vol]45 [iU]/dHigh5 - 43 Int._Unit/LFTMC RemisolBilirubin [Mass/Vol]0.5 mg/dLNormal0.0 - 1.1 mg/dL [facility] RemisolBilirubin.direct [Mass/Vol]mg/dLNormal0.1 - 0.4 mg/dLFTMC Remisol Bilirubin.indirect [Mass or moles/Vol]Unable to Calculate mg/dLInvalid Interpretation Code0.1 - 0.9 mg/dLFTMC RemisolCalcium [Mass/Vol]9.5 mg/dLNormal 8.9 - 11.1 mg/dLFTMC RemisolChloride [Moles/Vol]103 mmol/ZMevaaw368 - 111 mmol/L FT RemisolCO2 [Moles/Vol]27 mmol/TLarmpl29 - 31 mmol/LFTMC RemisolCreatinine [Mass/Vol]0.8 mg/dLNormal0.5 - 1.3 mg/dLFTMC RemisolGFR/1.73 sq M.predicted among non-blacks MDRD (S/P/Bld) [Vol rate/Area]77 mL/min/1.73 h9Eeyloe >=59mL/min/1.73 m2FT Chem SComment on above:Interpretive Data: Chronic kidney disease could be indicated at eGFR's of less than 60 mL/min/1.73m2. Kidney failure is indicated at less than 15 mL/min/1.73m2.Globulin (S) [Mass/Vol]3.0 g/dLNormal1.4 - 4.0 gm/dLFTMC RemisolGlucose [Mass/Vol]110 mg/wNIoyvlp37 - 199 mg/dLFTMC RemisolComment on above:Interpretive Data: If this glucose result represents a fasting glucose, interpretation should referto the following reference range: 55-99 mg/dLLipase [Catalytic activity/Vol]31 U/KWsower44 - 58 unit/LFTMC RemisolPotassium [Moles/Vol]4.1 mmol/LNormal3.5 - 5.3 mmol/LFTMC RemisolProtein [Mass/Vol]6.8 g/dLNormal6.0 - 7.8 gm/dLFTMC RemisolSodium [Moles/Vol]139 mmol/PNfkjph021 - 145 mmol/LFTMC RemisolUrea nitrogen [Mass/Vol] 12 mg/dLNormal5 - 21 mg/dLHILLCREST [facility]ITAL [facility]TH RemisolUrea nitrogen/Creatinine [Mass ratio]15 mg/avEhdvci99 - 20FT RemisolConsent for Treatmenton 52-15-1882Irqvxve for [id number]#1.00TIFCleveland Clinic Children's Hospital for RehabilitationConsent for Treatment [id number]#1.00TIFCleveland Clinic Children's Hospital for RehabilitationHEMATOLOGYOrdered By: SYSTEM SYSTEM on 72-51-5923Npgnxufwd/100 WBC (Bld) 0.8 %Normal0.0 - 2.0 %[facility] HemeAutoSSBasophils/Leukocytes Auto (Bld) [Pure # fraction]0.0 E9/LNormal0.0 - 0.2 E9/LFTMC HemeAutoSSEosinophils/100 WBC (Bld)0.2 %Normal0.0 - 8.0 %[facility] HemeAutoSSEosinophils/Leukocytes Auto (Bld) [Pure # fraction]0.0 E9/LNormal0.0 - 0.5 E9/LFTMC HemeAutoSSLymphocytes/100 WBC (Bld) 26.7 %Hbbmyj09.0 - 50.0 %[facility] HemeAutoSSLymphocytes/Leukocytes Auto (Bld) [Pure # fraction]1.2 E9/LNormal1.0 - 4.0 E9/LFTMC HemeAutoSSMonocytes/100 WBC (Bld)9.8 %Normal4.0 - 14.0 %[facility] HemeAutoSSMonocytes/Leukocytes Auto (Bld) [Pure # fraction]0.4 E9/LNormal0.2 - 1.0 E9/LFTMC HemeAutoSSNeutrophils/100 WBC (Bld) 62.5 %Kqmmvs04.0 - 75.0 %[facility] HemeAutoSSNeutrophils/Leukocytes Auto (Bld) [Pure # fraction]2.7 E9/LNormal2.0 - 7.5 E9/LFTMC HemeAutoSSHEMATOLOGYOrdered By: Lan Eastman on 95-63-4330Ekwmepdrsbm distribution width (RBC) [Ratio]13.7 % Golbxt33.9 - 14.2 %FT HemeAutoSSHematocrit (Bld) [Volume fraction]38.0 %Normal 34.0 - 46.0 %FT HemeAutoSSHemoglobin (Bld) [Mass/Vol]12.5 g/oQDirueb77.0 - 16.0 gm/dLFTMC HemeAutoSSMCH (RBC) [Entitic mass]29.9 xxYgoxzk62.0 - 34.0 pgFTMC HemeAutoSSMCHC (RBC) [Mass/Vol]32.9 g/gKNalkhp84.4 - 36.0 gm/dLFT HemeAutoSS MCV (RBC) [Entitic vol]90.9 dTYjlrxh73.0 - 100.0 fLFT HemeAutoSSPlatelet mean volume (Bld) [Entitic vol]8.7 fLNormal6.4 - 10.8 fLFT HemeAutoSSPlatelets (Bld) [#/Vol]184.0 E9/KFyvbzm755.0 - 500.0 E9/LFINTE[facility] [place] HemeAutoSSRBC (Bld) [#/Vol] 4.2 E12/LLow4.3 - 5.9 E12/LFC HemeAutoSSWBC corrected for nucl RBC Auto (Bld) [#/Vol]4.4 E9/LNormal4.0 - 11.0 E9/LFINTEGRIS [facility] [place] HemeAutoSSHep Func Panelon 06-30-2023 Bilirubin.indirect [Mass or moles/Vol]UTCAbnormal0.1-0.9Mansfield HospitalComment on above:Result Comment: Result verified by Discern Rule. Performed result UTC (Unable to Calculate) was sent as an Alpha code due the inability to calculate a valid numeric value.Performed By: #### 4819762, 00072973, 9941658, 9695392, 7161525, 1880755 #### [facility] [address], [place] [address]Nsncqvh [Mass/Vol]3.8 g/dLNormal3.3-5.0M[facility]field HospitalComment on above:Performed By: #### 8230938, 38640959, 9049929, 1658989, 6443615, 1420100 #### [facility] [address] [place] [address] 79118Zcgvoew/Globulin (S) [Mass conc ratio]1.2Uftgqc3.1-2.2FPremier Health Atrium Medical CenterComment on above:Performed By: #### 0860508, 21563900, 5582328, 4293896, 0192091, 2315209 #### [facility] [address] [place] [address] 50021QVS [Catalytic activity/Vol]56 Int._Unit/BPcscjy29-30WiyhzyMansfield HospitalComment on above:Performed By: #### 7090770, 73719528, 3648838, 6422508, 2038764, 8637585 #### [facility] [address] [place] [address] 20166FSK No additional P-5'-P [Catalytic activity/Vol]50 Int._Unit/L High6-46M[facility]field HospitalComment on above:Performed By: #### 8979228, 99878928, 3930261, 4433159, 9197221, 0678832 #### [facility] [address] [place] [address] 16363RFE [Catalytic activity/Vol]45 Int._Unit/LHigh5-43M[facility] HospitalComment on above:Performed By: #### 4997942, 96937895, 5141226, 3654265, 7326545, 9067703 #### [facility] [address] [place] [address] 06698Lbztdomhn [Mass/Vol]0.5 mg/dLNormal0.0-1.1FPremier Health Atrium Medical CenterComment on above:Performed By: #### 9872282, 67321278, 2803881, 2812217, 0722918, 9007233 #### [facility] [address] [place] [address] 78824Hdtsirzf (S) [Mass/Vol]3.0 g/dLNormal1.4-4.0M[facility]field HospitalComment on above:Performed By: #### 7674669, 78976813, 4589514, 3418985, 6508484, 4013749 #### [facility] [address], [place] [address]Kuiycfq [Mass/Vol]6.8 g/dLNormal6.0-7.8M[facility]field HospitalComment on above:Performed By: #### 8748065, 09386842, 9805540, 4969929, 9968607, 3116338 #### [facility] [address] [place] [address] 94227Wxtwxlzme.direct [Mass/Vol]mg/dLNormal0.1-0.4FPremier Health Atrium Medical CenterComment on above:Performed By: #### 4192218, 28614568, 9785778, 0810976, 3469948, 7407500 #### [facility] [address] [place] [address] 65992Ogejgs Levelon 47-77-4658Kjxhyn [Catalytic activity/Vol]31 U/L Qbwtmo37-55IseizkMansfield HospitalComment on above:Performed By: #### 2413135, 18771214, 9460798, 8503807, 3523663, 9504422 #### [facility] [address] [place] [address] 71671ZI With Cult Reflexon 43-15-2859Ylfiaabc LM Ql (Urine sed)TRACE NormalTraceMansfield HospitalComment on above:Performed By: #### 6761436, 60898828, 0573942, 0559942, 2519159, 5300390 #### [facility] [address] [place] [address] 735[address]Yodmbwdkm Ql (U)NegativeNormalNegativeMansfield HospitalComment on above:Performed By: #### 0603114, 26959326, 5388549, 9065229, 9740046, 1527739 #### [facility] [address], [place] [address]Bodbizm (U)CLEARNormalClearEcu Health Bertie Hospitaler Holy Cross HospitalComment on above:Performed By: #### 2819588, 98555126, 8643385, 4923054, 5799746, 5741609 #### [facility] [address], [place] [address]Zpdux (U)YELLOWNormalYellowEcu Health Bertie Hospitaler [facility] Cross HospitalComment on above:Performed By: #### 7251902, 36290602, 6638998, 2764806, 0937940, 8860085 #### [facility] [address] [place] [address] 90482Gveidqhakl cells.squamous LM.HPF (Urine sed) [#/Area]0-2Normal 0-2Fisher [facility] Cross HospitalComment on above:Performed By: #### 5034859, 19695249, 3052017, 8487439, 9791795, 6496862 #### [facility] [address] [place] [address] 15951Clrvcae Test strip (U) [Mass/Vol]NegativeNormalNegativeMansfield HospitalComment on above:Performed By: #### 1089169, 40509414, 8034977, 1870026, 2731552, 3327196 #### [facility] [address] [place] [address] 400[address]Ckhcsobxvz Ql (U)TRACEAbnormalNegativeMansfield HospitalComment on above:Performed By: #### 7752312, 98989240, 6524432, 8233686, 4409603, 2883073 #### [facility] [address] [place] [address] 52797Jcgucuf (U) [Mass/Vol]NegativeNormalNegativeMansfield HospitalComment on above:Performed By: #### 9557217, 04401196, 8407111, 1966063, 8460629, 3124164 #### [facility] [address] [place] [address] 42802Wkwnvsl.plasma/[place].RBC (Bld) [Mass ratio]2-0Frvuza0-8Scgblj [facility] HospitalComment on above:Performed By: #### 5429270, 03877310, 5165902, 1245844, 2302058, 6981054 #### [facility] [address], [place] [address]Bwradjx Ql (U)NegativeNormalNegSt. Mary's Medical Center Comment on above:Performed By: #### 2749642, 19782356, 2338490, 4738126, 8334720, 0906454 #### [facility] [address] [place] [address] 13394fU (U)6.5 [pH]Invalid Interpretation Code5.0-9.0M[facility]field HospitalComment on above:Performed By: #### 0260184, 37647003, 3520424, 5701042, 5995471, 7658355 #### [facility] [address] [place] [address] 03050Drkrpnq (U) [Mass/Vol]NegativeNormalNegativeMansfield HospitalComment on above:Performed By: #### 2149312, 96119864, 0150870, 9645195, 9085368, 3198542 #### [facility] [address] [place] [address] 47851Uoodglos gravity (U) [Rel density]<=1.005Invalid Interpretation Code1.005-1.030M[facility]field HospitalComment on above:Performed By: #### 5059247, 62471281, 4890444, 4770430, 0775945, 8580462 #### [facility] [address] [place] [address] 06406Ndza of Urine collection methodClean CatchNoAultman Alliance Community HospitalComment on above:Performed By: #### 5620545, 49678532, 8053518, 1120577, 6597403, 8633834 #### [facility] [address] [place] [address] 01266Mqsdeuitwued Qn (U)0.2 {Judith'U}/dLNormal0.0-1.0E[facility] Health [facility] Hospitaler [facility] HospitalComment on above:Performed By: #### 2390371, 06175478, 1089598, 9285909, 7933006, 3776540 #### [facility] [address], [place] [address]ANT Auto Ql (U)NegativeNormalNegativeMansfield HospitalComment on above:Performed By: #### 1519545, 22898695, 0568998, 8545176, 8162417, 9357879 #### [facility] [address], [place] [address]RCA LM.HPF (Urine sed) [#/Area]8-1Ijgojc5-7Ipcffu [facility] HospitalComment on above:Performed By: #### 1693314, 91958902, 5758855, 2453965, 1897843, 5972962 #### [facility] [address], [place] [address]ZMHYZULBRXJfzhtnm By: Carol Davis on 22-00-3913Zszpqrkz LM Ql (Urine sed)Trace /HPFNormalTrace/HPFHILLCREST [facility]ITAL [facility]TH UA Auto SSBilirubin Ql (U)Negative (06/30/23 8:00 PM)NormalNegativeHILLCREST HOSPITAL SOUTH UA Auto SSClarity (U)Clear (06/30/23 8:00 PM)NormalClearFINTEGRIS MIAMI [facility] [place] UA Auto SSColor (U)Yellow (06/30/23 8:00 PM)NormalYellowHILLCREST HOSPITAL SOUTH UA Auto SSEpithelial cells.squamous LM.HPF (Urine sed) [#/Area]0-2 /HPFNormal0-2/HPFFT UA Auto SSGlucose Test strip (U) [Mass/Vol]Negative (06/30/23 8:00 PM)NormalNegativeHILLCREST HOSPITAL SOUTH UA Auto SSHemoglobin Ql (U)Trace *ABN* (06/30/23 8:00 PM)Invalid Interpretation CodeNegativeHILLCREST HOSPITAL SOUTH UA Auto SSKetones (U) [Mass/Vol]Negative (06/30/23 8:00 PM)NormalNegativeHILLCREST HOSPITAL SOUTH UA Auto SSLithium.plasma/[place].RBC (Bld) [Mass ratio]0-3 /HPFNormal0-3/HPFHILLCREST HOSPITAL SOUTH UA Auto SSNitrite Ql (U)Negative (06/30/23 8:00 PM)NormalNegativeHILLCREST HOSPITAL SOUTH UA Auto SSpH (U)6.5 *NA* (06/30/23 8:00 PM)Invalid Interpretation Code5.0 - 9.0[facility] UA Auto SSProtein (U) [Mass/Vol]Negative (06/30/23 8:00 PM)NormalNegativeHILLCREST HOSPITAL SOUTH UA Auto SSSpecific gravity (U) [Rel density]<=1.005 *NA* (06/30/23 8:00 PM)Invalid Interpretation Code1.005 - 1.030[facility] UA Auto SSUA Spec DescClean Catch (06/30/23 8:00 PM)NormalHILLCREST HOSPITAL SOUTH UA Auto SSUrobilinogen Qn (U)0.1303495 {Judith'U}/dLNormal0.0 - 1.0 EU/dLHILLCREST HOSPITAL SOUTH UA Auto SSWBC Auto Ql (U)Negative (06/30/23 8:00 PM)NormalNegativeHILLCREST HOSPITAL SOUTH UA Auto SSWBC LM.HPF (Urine sed) [#/Area]0- 5 /HPFNormal0-5/HPFHILLCREST HOSPITAL SOUTH UA Auto SSeGFRon 78-71-9193PSB/1.73 sq M.predicted among non-blacks MDRD (S/P/Bld) [Vol rate/Area]77 mL/min/1.73 n2Bkpvrd>=59FishUniversity of Maryland Rehabilitation & Orthopaedic InstituteComment on above:Order Comment: Order added by Discern Expert.Result Comment: Chronic kidney disease could be indicated at eGFR's of less than 60 mL/min/1.73m2. Kidney failure is indicated at less than 15 mL/min/1.73m2.Performed By: #### 3344022, 77404903, 2348818, 5870312, 1171307, 7445142 #### [facility] [address] [place] [address] 78[address]ZABQKOBIEOMsrnbte By: Lan Eastman on 44-92-7205Sytgyhtkb Ql (U)Negative (01/28/23 11:04 PM)NormalNegativeHILLCREST HOSPITAL SOUTH UA Auto SSClarity (U)Clear (01/28/23 11:04 PM)NormalClearFINTEGRIS MIAMI [facility] [place] UA Auto SSColor (U)Yellow (01/28/23 11:04 PM)NormalYellowHILLCREST HOSPITAL SOUTH UA Auto SSEpithelial cells.squamous LM.HPF (Urine sed) [#/Area]3-4 /HPFNormal0-2/HPFHILLCREST HOSPITAL SOUTH UA Auto SSGlucose Test strip (U) [Mass/Vol]Negative (01/28/23 11:04 PM)NormalNegativeHILLCREST HOSPITAL SOUTH UA Auto SSHemoglobin Ql (U)1+ *ABN* (01/28/23 11:04 PM)Invalid Interpretation CodeNegativeHILLCREST HOSPITAL SOUTH UA Auto SSKetones (U) [Mass/Vol]Negative (01/28/23 11:04 PM)NormalNegativeHILLCREST HOSPITAL SOUTH UA Auto SSLithium.plasma/[place].RBC (Bld) [Mass ratio]0-3 /HPFNormal0-3/HPFHILLCREST HOSPITAL SOUTH UA Auto SSNitrite Ql (U)Negative (01/28/23 11:04 PM)NormalNegativeHILLCREST HOSPITAL SOUTH UA Auto SSpH (U)6.0 *NA* (01/28/23 11:04 PM)Invalid Interpretation Code5.0 - 9.0[facility] UA Auto SSProtein (U) [Mass/Vol]Negative (01/28/23 11:04 PM)NormalNegativeHILLCREST HOSPITAL SOUTH UA Auto SSSpecific gravity (U) [Rel density]1.025 *NA* (01/28/23 11:04 PM)Invalid Interpretation Code1.005 - 1.030[facility] UA Auto SSUA Spec DescClean Catch (01/28/23 11:04 PM)NormalHILLCREST HOSPITAL SOUTH UA Auto SSUrobilinogen Qn (U)1.6553656 {Judith'U}/dLNormal0.0 - 1.0 EU/dLHILLCREST HOSPITAL SOUTH UA Auto SSWBC Auto Ql (U)Negative (01/28/23 11:04 PM)NormalNegativeHILLCREST HOSPITAL SOUTH UA Auto SSWBC LM.HPF (Urine sed) [#/Area]0- 5 /HPFNormal0-5/HPFHILLCREST HOSPITAL SOUTH UA Auto SSQ - SARS CoV2 COVID 19 Ab IgGon 08-20-2021 SARS-CoV-2 (COVID-19) Ab IA Qn25.84 indexHigh<1.00[facility] SpecialistComment on above:Order Comment: [facility] Testing performed at: [facility], [address], [address] [place], [address], Door Clamp Operator: Ab Vincent MD [facility] Collection Date/Time: [facility] Results Received Date/Time: [facility] Reported Date/Time: [id number] Comment: This test is intended to help [...] providers and patients using the following websites: [email or web address] [email or web address]/[email or web address] Healthcare Providers: For additional information please refer to: http://education.[employer]/faq/WQI181 (This link is being provided for informational/educational purposes only.) This test has been authorized by the FDA under an Emergency Use Authorization (EUA) for use by authorized laboratories. The FDA authorized labeling is available on the [employer] website: www.[employer]/Covid19.Performed By: #### [id number] #### [facility] [address] [place], [place] [address]Naqzbfufd Laboratory TestingOrdered By: Generated DomainUser on 41-71-7169YPBI-CoV-2 (COVID-19) RNA JORDAN+probe Ql (Resp)Not detectedInvalid Interpretation CodeNot DetectedHILLCREST HOSPITAL SOUTH SendOutsSSComment on above:Result Comment: This nucleic acid amplification test was developed and its performance characteristics determined by [employer]. Nucleic acid amplification tests include RT-PCR and [...] detected) result in this assay. Performed at: [address] [id number] PhD Emily Fraser Vital Signs Date TimeVital SignValuePerforming DnmevyhjlMbieikcg53-01-8545 11:36-0400Body pmozhp616 cmHannah Brian MD Work Phone: [phone] HospitalXcawqfdkuu00-51-9666 11:36-0400Body mass index (BMI) [Ratio]23.03 kg/y4OiaswHannah Brian MD Work Phone: [phone] HospitalRwqcsifawc14-77-0480 11:36-0400Body temperature 98.2 [degF]Hannah Brian MD Work Phone: [phone] HospitalZjdlxmruoa22-08-7828 11:36-0400Body uvhwex04.97 kgHannah Brian MD Work Phone: [phone] HospitalAjtgospucx84-12-8706 11:36-0400Diastolic blood foblstxt08 mm[Hg]Hannah Brian MD Work Phone: [phone] HospitalIlerlvxzis74-11-2880 11:36-0400Heart rate72 /min Hannah Brian MD Work Phone: [phone] [place], [place] 7838010-01-2025 11:36-7804WmL2% (BldA) [Mass fraction]97 %Hannah Brian MD Work Phone: [facility] HospitalAtgmqoixnv57-74-4812 11:36-0400Systolic blood metuiblz920 mm[Hg]Hannah Brian MD Work Phone: [facility] HospitalUlxfydqneh16-18-3083 14:26-0400Body tiyxoe219 cm Hannah Brian MD Work Phone: [phone]09-25-2025 14:26-0400Body mass index (BMI) [Ratio]23.17 kg/g4XbzymHannah Brian MD Work Phone: [facility] HospitalVfuqqekdnd33-63-0208 14:26-0400Body temperature 98.29 [degF]Hannah Brian MD Work Phone: [facility] HospitalMvcpzbxrhz60-77-5425 14:26-0400Body biczqp41.33 kgHannah Brian MD Work Phone: [phone]09-25-2025 14:26-0400Diastolic blood akpyjplz94 mm[Hg]Hannah Brian MD Work Phone: [facility] HospitalBukycpqmtl85-87-2912 14:26-0400Heart rate71 /min Hannah Brian MD Work Phone: [facility] HospitalYenfyvpdfn19-67-0389 14:26-4824CbW1% (BldA) [Mass fraction]98 %Hannah Brian MD Work Phone: [facility] HospitalHfrfssmaej85-04-3835 14:26-0400Systolic blood ajuoiufm145 mm[Hg]Hannah Brian MD Work Phone: 1(508)[facility]7682[facility] HospitalCpvkpfxlcc95-60-6335 15:21-0400Body tpxuqm419 cm Hannah Brian MD Work Phone: [facility] HospitalTrxbyjokvg31-01-4235 15:21-0400Body mass index (BMI) [Ratio]23.13 kg/z7SkiziHannah Brian MD Work Phone: 1(938)240-[address] [place], [place] [address]Nbnckxabca48-60-0422 15:21-0400Body temperature 97.81 [degF]Hannah Brian MD Work Phone: 1(503)186-[address] [place], [place] [address]Okjajtpbtx86-56-8286 15:21-0400Body syjveb66.24 kgHannah Brian MD Work Phone: [facility] HospitalByftsnjgyb80-54-8788 15:21-0400Diastolic blood hvvfjlwy08 mm[Hg]Hannah Brian MD Work Phone: [place] [address]Ntfjyfjlqk48-14-0852 15:21-0400Heart rate71 /min Hannah Brian MD Work Phone: [place] [address]Ywkbeqmpin77-74-7147 15:21-6554UcO9% (BldA) [Mass fraction]97 %Hannah Brian MD Work Phone: [place] [address]Cvlpyoczey23-35-3451 15:21-0400Systolic blood bhourmpa696 mm[Hg]Hannah Brian MD Work Phone: [facility] HospitalYjddcqailx85-15-2114 13:46-0400Body iwkfte267 cm Hannah Brian MD Work Phone: [facility] HospitalLlunzqdkwo78-92-6903 13:46-0400Body mass index (BMI) [Ratio]23.6 kg/s4RhajnHannah Brian MD Work Phone: [facility] HospitalMsoxosqqcc15-13-8840 13:46-0400Body temperature 98.2 [degF]Hannah Brian MD Work Phone: [facility] HospitalSdfjfzavfb44-14-1438 13:46-0400Body nuezku19.42 kgHannah Brian MD Work Phone: [facility] HospitalGgmidalrja36-51-7556 13:46-0400Diastolic blood uvwcvkzc32 mm[Hg]Hannah Brian MD Work Phone: [facility] HospitalNkhthtyhms02-04-2139 13:46-0400Heart rate68 /min Hannah Brian MD Work Phone: [facility] HospitalUpxkdayezh15-15-0527 13:46-5462IgK6% (BldA) [Mass fraction]99 %Hannah Brian MD Work Phone: [facility] HospitalSwsaqfskte53-91-1319 13:46-0400Systolic blood tifofrty458 mm[Hg]Hannah Brian MD Work Phone: [facility] HospitalMinknvyhwu20-33-1348 13:56-0400Body cm Hannah Brian MD Work Phone: [facility] HospitalYmdvadifbs71-23-0182 13:56-0400Body mass index (BMI) [Ratio]23.91 kg/l9CjkaeHannah Brian MD Work Phone: [facility] HospitalNybihtxlem34-84-2157 13:56-0400Body temperature 98.01 [degF]Hannah Brian MD Work Phone: [facility] HospitalLlzbhnxuvj70-05-8981 13:56-0400Body jognvq48.24 kgHannah Brian MD Work Phone: [facility] HospitalJefdpjfmyt05-39-3714 13:56-0400Diastolic blood xvaellky85 mm[Hg]Hannah Brian MD Work Phone: [facility] HospitalKprdxlujdd90-06-7893 13:56-0400Heart rate70 /min Hannah Brian MD Work Phone: [facility] HospitalCppnsczzrg89-51-7283 13:56-7781OwR8% (BldA) [Mass fraction]99 %Hannah Brian MD Work Phone: [facility] HospitalEwppddgcnf46-78-8483 13:56-0400Systolic blood myelyjwl827 mm[Hg]Hannah Brian MD Work Phone: [facility] HospitalUsrtwqzhji48-96-2490 15:47-0400Body cm Hannah Brian MD Work Phone: [facility] HospitalFgxusftjal10-21-6456 15:47-0400Body mass index (BMI) [Ratio]23.95 kg/u5PtjznHannah Brian MD Work Phone: [facility] HospitalWwgrgsywvh53-10-8411 15:47-0400Body temperature 97.9 [degF]Hannah Brian MD Work Phone: [facility] HospitalWqyswvpnij67-86-8962 15:47-0400Body wrzgub65.33 kgHannah Brian MD Work Phone: [facility] HospitalLrqjfowghh66-38-4879 15:47-0400Diastolic blood pibqacej60 mm[Hg]Hannah Brian MD Work Phone: [facility] HospitalVljdhpuosf16-36-6036 15:47-0400Heart rate70 /min Hannah Brian MD Work Phone: [facility] HospitalXawdjxzbtb50-09-7569 15:47-7594HiQ7% (BldA) [Mass fraction]97 %Hannah Brian MD Work Phone: [facility] HospitalPlkumjexun16-11-9146 15:47-0400Systolic blood ivoqnnsx978 mm[Hg]Hannah Brian MD Work Phone: [facility] HospitalUowvbcyrpd61-85-5706 15:23-0400Body ipefcq825 cm Hannah Brian MD Work Phone: [facility] HospitalGaecskxkbg74-55-1623 15:23-0400Body mass index (BMI) [Ratio]24.09 kg/q9OotcbHannah Brian MD Work Phone: [facility] HospitalYoeccthzqv72-99-3777 15:23-0400Body temperature 97.5 [degF]Hannah Brian MD Work Phone: [facility] HospitalZpslerjmoz21-46-4447 15:23-0400Body wgkzsi96.69 kgHannah Brian MD Work Phone: [facility] HospitalPkjiothnhn98-44-2295 15:23-0400Diastolic blood wcwrmpwa37 mm[Hg]Hannah Brian MD Work Phone: [facility] HospitalEtxhbkilcn67-14-1675 15:23-0400Heart rate74 /min Hannah Brian MD Work Phone: [facility] HospitalHidipupfsn27-22-1712 15:23-6660GeS6% (BldA) [Mass fraction]99 %Hannah Brian MD Work Phone: [facility] HospitalDqcktjaage71-90-1633 15:23-0400Systolic blood yurfcxgg947 mm[Hg]Hannah Brian MD Work Phone: [facility] HospitalPpdevcoddm19-35-1350 11:32-0400Body xdyuob184 cm Hannah Brian MD Work Phone: [facility] HospitalSlpuongkoc47-61-8366 11:32-0400Body mass index (BMI) [Ratio]24.45 kg/s5NchtnHannah Brian MD Work Phone: [facility] HospitalHkacgrcxod12-39-8363 11:32-0400Body temperature 97.81 [degF]Hannah Brian MD Work Phone: [facility] HospitalDtmunoqtdo87-51-9243 11:32-0400Body .6 kg Hannah Brian MD Work Phone: [facility] HospitalJylwmpprsz24-33-2336 11:32-0400Diastolic blood kyhazkpb63 mm[Hg]Hannah Brian MD Work Phone: [facility] HospitalMqcmkspndm81-39-8995 11:32-0400Heart rate75 /min Hannah Brian MD Work Phone: [facility] HospitalHuchjynjwk00-56-4931 11:32-4736EmD8% (BldA) [Mass fraction]96 %Hannah Brian MD Work Phone: [facility] HospitalDfxnwtovrf06-08-0818 11:32-0400Systolic blood kashrfqq227 mm[Hg]Hannah Brian MD Work Phone: [facility] HospitalMijzhflttt39-79-3065 11:43-0400Body yaakro372 cm Hannah Brian MD Work Phone: [facility] HospitalNmmorsrrgg88-98-3722 11:43-0400Body mass index (BMI) [Ratio]23.91 kg/a6VdyraHannah Brian MD Work Phone: [facility] HospitalDtdsdnbrfu48-71-5116 11:43-0400Body temperature 97.81 [degF]Hannah Brian MD Work Phone: [facility] HospitalTcpmrvmzqu64-74-3597 11:43-0400Body .24 kgHannah Brian MD Work Phone: [facility] HospitalJxdcqzirmp03-15-7982 11:43-0400Diastolic blood baltdevg76 mm[Hg]Hannah Brian MD Work Phone: [facility] HospitalLkloyolrpn36-61-4267 11:43-0400Heart rate70 /min Hannah Brian MD Work Phone: [facility] HospitalRlewuiykzs37-62-9070 11:43-7535FmB1% (BldA) [Mass fraction]98 %Hannah Brian MD Work Phone: [facility] HospitalJcksoafhcb09-52-8551 11:43-0400Systolic blood oxokefby888 mm[Hg]Hannah Brian MD Work Phone: [facility] HospitalNjphtwtqho41-31-7714 12:58-0500Body qungxn772 cm Sherlyn Meraz PA Work Phone: [facility] HospitalZhnpskgnvg56-44-7644 12:58-0500Body mass index (BMI) [Ratio]23.91 kg/d2PsopgejSherlyn Meraz PA Work Phone: [facility] HospitalAqaqowelwz88-03-6158 12:58-0500Body temperature 97.9 [degF]Sherlyn Meraz PA Work Phone: [facility] HospitalEasifkajqh51-83-7419 12:58-0500Body krsolw42.24 kgSherlyn Meraz PA Work Phone: [facility] HospitalAoqwpvwley63-50-4558 12:58-0500Diastolic blood lmztwids62 mm[Hg]Sherlyn Meraz PA Work Phone: [facility] HospitalZmarfirapd00-00-7049 12:58-0500Heart rate70 /min Sherlyn Meraz PA Work Phone: [facility] HospitalItnwolanvs20-64-8200 12:58-8040QbQ7% (BldA) [Mass fraction]97 %Sherlyn Meraz PA Work Phone: [facility] HospitalNncxspzyna20-29-7413 12:58-0500Systolic blood qbnwnqhu815 mm[Hg]Sherlyn Meraz PA Work Phone: [facility] HospitalPfcqmbtlwv68-16-9143 16:09-0500Body .3 cmRickie Aviles WAFER FAB TECHNICIAN Work Phone: [facility] HospitalMvweebbnyt96-39-2178 16:09-0500Body mass index (BMI) [Ratio]22.39 kg/p6XtpcaqrRickie Aviles WAFER FAB TECHNICIAN Work Phone: [facility] HospitalQjniremyqa01-40-1705 16:09-0500Body temperature 97.7 [degF]Rickie Aviles WAFER FAB TECHNICIAN Work Phone: [facility] HospitalLyiquvelnb10-03-7471 16:09-0500Body bekkct09.24 kgRickie Aviles WAFER FAB TECHNICIAN Work Phone: [facility] HospitalLqclospols13-21-9467 16:09-0500Diastolic blood tqzijeng30 mm[Hg]Rickie Pierrer WAFER FAB TECHNICIAN Work Phone: [facility] HospitalXvogorwizw62-06-4341 16:09-0500Heart rate73 /min Rickie Pierrer WAFER FAB TECHNICIAN Work Phone: [facility] HospitalXkwmzskooh52-45-8508 16:09-2028VmB8% (BldA) [Mass fraction]99 %Rickie Pierrer WAFER FAB TECHNICIAN Work Phone: [facility] HospitalOydmcmnwuw50-81-7996 16:09-0500Systolic blood okyxutun029 mm[Hg]Rickie Pierrer WAFER FAB TECHNICIAN Work Phone: [facility] HospitalJizsomfdbr72-93-3152 15:19-0500Body gugkbu931.3 cmDionterajiv Boo DO Work Phone: [facility] HospitalAxwmbdtqbq95-09-4114 15:19-0500Body mass index (BMI) [Ratio]21.8 kg/c1Pzipnhgrajiv Boo DO Work Phone: [facility] HospitalIoavytbweu94-94-2272 15:19-0500Body omwspa15.7 kg Stephan Boo DO Work Phone: [facility] HospitalQqkhypdxrr95-63-7531 15:19-0500Diastolic blood qehnohfp04 mm[Hg]Stephan Boo DO Work Phone: [place] [address]Peolzwgkiy96-95-4045 15:19-0500Systolic blood ybkhymtg795 mm[Hg]Stephan Boo DO Work Phone: [place] [address]Xizqkfntkx86-56-9084 15:35-0500Body .1 cmSherlyn Meraz PA Work Phone: [facility] HospitalWbxhwowslg57-69-0165 15:35-0500Body mass index (BMI) [Ratio]20.93 kg/q8IphbevwSherlyn ABRAMS Work Phone: [place] [address]Bfkmjpfsby42-41-1364 15:35-0500Body temperature 97.7 [degF]Sherlyn Meraz PA Work Phone: [place] [address]Cuxzihmvyy67-30-8399 15:35-0500Body xvwnek11.06 kgLupeizabel Kt PA Work Phone: [place] [address]Wiaoscgkpf62-85-0478 15:35-0500Diastolic blood qgnazjem91 mm[Hg]Sherlyn Meraz PA Work Phone: [place] [address]Cdlvnltiwt01-68-3161 15:35-0500Heart rate86 /min Sherlyn Meraz PA Work Phone: [place] [address]Jauzwpfgoh75-43-3545 15:35-8163GdW7% (BldA) [Mass fraction]98 %Sherlyn Meraz PA Work Phone: [place] [address]Jhxfpjxqhr31-79-6790 15:35-0500Systolic blood oiuyhvau164 mm[Hg]Sherlyn Meraz PA Work Phone: [place] [address]Adjnsnbafq10-51-3425 11:13-0500Body mass index (BMI) [Ratio]19.97 kg/y5XzxolpRapahel Goldsmith MD Work Phone: 1()801-0433[place] Fsovwo11-73-1960 11:13-0500Body temperature 96.6 [degF]Raphael Goldsmith MD Work Phone: 1()914-1200[place] Cldozt32-85-2960 11:13-0500Body bvbcni49.43 kgRaphael Goldsmith MD Work Phone: [place] Jsqwkd05-49-3301 11:13-0500Diastolic blood itpomygc75 mm[Hg]Raphael Goldsmith MD Work Phone: [place] Eullrl39-78-4161 11:13-0500Heart rate83 /min Raphael Goldsmith MD Work Phone: [place] Bvhcjs22-62-3078 11:13-0500Systolic blood rsjidcor781 mm[Hg]Raphael Goldsmith MD Work Phone: [facility] CenterBydcal44-32-7386 20:52-0400Body temperature 97.7 [degF]Jayson Calloway [address] [place], [place] 8411604-10-2024 20:52-0400 Diastolic blood jbplcyfy03 mm[Hg]Jayson Calloway [address]04-10-2024 20:52-0400Heart rate60 /minJayson Calloway [address] [place], [place] 8411604-10-2024 20:52-0400 Respiratory rate17 /minAbranvin Brodie [address] [place], [place] 8411604-10-2024 20:52-7355LwP8% (BldA) [Mass fraction]100 %Jayson Calloway [address] [place], [place] 8411604-10-2024 20:52-0400 Systolic blood mm[Hg]Jayson Calloway [address]04-10-2024 18:32-0400Heart rate87 /minJayson Calloway [address] [place], [place] 8411604-10-2024 18:32-0400 Respiratory rate18 /minJayson Calloway [address] [place], [place] 8411604-10-2024 18:32-2390ShD3% (BldA) [Mass fraction]98 %Jayson Calloway [address] [place], [place] 8411604-10-2024 17:50-0400 Diastolic blood cfdeadfn33 mm[Hg]Jayson Calloway [address] [place], [place] 8411604-10-2024 17:50-0400Heart rate68 /minJayson Calloway [address] [place], [place] 8411604-10-2024 17:50-0400 Respiratory rate18 /minAbranvin Brodie [address] [place], [place] 8411604-10-2024 17:50-4613BzV8% (BldA) [Mass fraction]98 %Jaysonapril Calloway [address] [place], [place] 0720404-10-2024 17:50-0400 Systolic blood hwxyqynd689 mm[Hg]Jayson Brodie [address] [place], [place] 0720404-10-2024 16:24-0400Body lopmnlhvwxk45.8 [degF]Jayson Broide [address] [place], [place] 0720404-10-2024 16:24-0400 Diastolic blood fuciuujm19 mm[Hg]Jaysonapril Calloway [address] [place], [place] 0720404-10-2024 16:24-0400 Systolic blood mm[Hg]Jayson Brodie [address] [place], [place] 0720402-22-2024 21:54-0500 Diastolic blood xnnunpeg63 mm[Hg]Kaylinn Dokken [address] [place], [place] 0720402-22-2024 21:54-0500Heart rate75 /minKaylinn Dokken [address] [place], [place] 0720402-22-2024 21:54-0500 Respiratory rate19 /minKaylinn Dokken [address] [place], [place] 0720402-22-2024 21:54-5417MxS9% (BldA) [Mass fraction]100 %Kaylinn Dokken [address] [place], [place] 0720402-22-2024 21:54-0500 Systolic blood uhjqdgcc825 mm[Hg]Kaylinn Dokken [address] [place], [place] 0720402-22-2024 18:04-0500Body tfjcsfiigit67.7 [degF]Kaylinn Dokken [address] [place], [place] 0720402-22-2024 18:04-0500 Diastolic blood kuebjcck94 mm[Hg]Kaylinn Dokken [facility]02-22-2024 18:04-0500Heart rate95 /minKoby Masterson [facility]02-22-2024 18:04-0500 Respiratory rate22 /minKoby Masterson [facility]02-22-2024 18:04-6967RmF9% (BldA) [Mass fraction]100 %Koby Masterson [facility]02-22-2024 18:04-0500 Systolic blood pnnbapwz458 mm[Hg]Koby Masterson [facility]02-13-2024 09:13-0500Body jarhji015.1 cmAlesha [place]aines[place] OVERNIGHT BABYSITTER.PUNCH OPERATOR Work Phone: [facility]02-13-2024 09:13-0500Body .8 kgAlesha [place] OVERNIGHT BABYSITTER.PUNCH OPERATOR Work Phone: [facility]02-13-2024 09:13-0500Diastolic blood iobjohsz32 mm[Hg]Ana [place] OVERNIGHT BABYSITTER.PUNCH OPERATOR Work Phone: [facility]02-13-2024 09:13-0500Heart rate72 /min Ana [place] OVERNIGHT BABYSITTER.PUNCH OPERATOR Work Phone: [facility]02-13-2024 09:13-0500Respiratory rate 20 /minAlesha [place] OVERNIGHT BABYSITTER.PUNCH OPERATOR Work Phone: [facility]02-13-2024 09:13-5474JgO7% (BldA) [Mass fraction]98 %Ana [place] OVERNIGHT BABYSITTER.PUNCH OPERATOR Work Phone: [facility]02-13-2024 09:13-0500Systolic blood mm[Hg]Ana [place] OVERNIGHT BABYSITTER.PUNCH OPERATOR Work Phone: [facility]02-05-2024 17:51-0500Body .1 Tank Nazario MD Work Phone: [facility] HospitalLakojbjegm87-05-2889 17:51-0500Body mass index (BMI) [Ratio]19.34 kg/g1CzxxgPeggy Nazario MD Work Phone: [facility] HospitalAmrjigdarf93-59-7964 17:51-0500Body temperature 98.01 [degF]Peggy Nazario MD Work Phone: [facility] HospitalSkzgqmgkoo60-36-9236 17:51-0500Body uqomuf26.71 kgPeFontana MD Work Phone: [facility] HospitalXrthhvtyje85-53-4213 17:51-0500Diastolic blood bcfisvtl35 mm[Hg]Peggy Nazario MD Work Phone: [facility] HospitalXeippazrds31-51-3905 17:51-0500Heart rate75 /min Peggy Nazario MD Work Phone: [facility] HospitalNqhbxtjwcs88-28-9965 17:51-6474QvP7% (BldA) [Mass fraction]99 %Peggy Nazario MD Work Phone: [facility] HospitalPxhjjnigif08-63-9838 17:51-0500Systolic blood tidgfnef520 mm[Hg]Peggy Nazario MD Work Phone: [facility] HospitalKvkqurcltu63-10-4501 06:00-0500Diastolic blood oyetesuy79 mm[Hg][facility] Armen [facility]02-04-2024 06:00-0500Heart rate61 /minNo Armen [facility]02-04-2024 06:00-0500Mean blood qqepilpj41 mm[Hg][facility]02-04-2024 06:00-0500 Respiratory rate11 /minNoah Armen [address] [place], [place] 8411602-04-2024 06:00-6268XxZ2% (BldA) [Mass fraction]100 %Parveen Armen [address] [place], [place] 0720402-04-2024 06:00-0500 Systolic blood rbrorfip013 mm[Hg]Parveen Armen [address] [place], [place] 0720402-04-2024 05:06-0500Body .98 [degF]Parveen Armen [address] [place], [place] 0720402-04-2024 05:06-0500 Diastolic blood oxphqkik44 mm[Hg]Parveen Armen [address] [place], [place] 0720402-04-2024 05:06-0500gluc 79 mg/dLNoah Armen [address] [place], [place] 0720402-04-2024 05:06-0500gluc Parveen Armen [address] [place], [place] 0720402-04-2024 05:06-0500Heart rate85 /minNoah Armen [address] [place], [place] 8411602-04-2024 05:06-0500 Respiratory rate20 /minNoah Armen [address] [place], [place] 8411602-04-2024 05:06-8395XaE9% (BldA) [Mass fraction]98 %Parveen Armen [address] [place], [place] 8411602-04-2024 05:06-0500 Systolic blood vtmnlkyq722 mm[Hg]Parveen Armen [address] [place], [place] 0720401-30-2024 06:38-0500 Diastolic blood hmvpyvgc30 mm[Hg]Parveen Armen [address] [place], [place] 0720401-30-2024 06:38-0500Heart rate78 /minNoah Armen [address] [place], [place] 0720401-30-2024 06:38-0500Mean blood qwvjycvz672 mm[Hg]Parveen Armen [address] [place], [place] 0720401-30-2024 06:38-0500 Respiratory rate13 /minNoah Armen [address] [place], [place] 0720401-30-2024 06:38-0518BjH9% (BldA) [Mass fraction]98 %Parveen Armen [address] [place], [place] 0720401-30-2024 06:38-0500 Systolic blood klvjbihr887 mm[Hg]Parveen Armen [address] [place], [place] 0720401-30-2024 05:58-0500 Diastolic blood gxpjxgof18 mm[Hg]Parveen Armen [address] [place], [place] 0720401-30-2024 05:58-0500Heart rate55 /minNoah Armen [address] [place], [place] 0720401-30-2024 05:58-0500Mean blood hosrolvf061 mm[Hg]Parveen Armen [address] [place], [place] 0720401-30-2024 05:58-0500 Respiratory rate16 /minNoah Armen [address] [place], [place] 0720401-30-2024 05:58-8047GvZ3% (BldA) [Mass fraction]100 %Parveen Armen [address] [place], [place] 0720401-30-2024 05:58-0500 Systolic blood pkatwaac794 mm[Hg]Parveen Armen [address] [place], [place] 0720401-30-2024 04:56-0500 Diastolic blood hdcnrikf14 mm[Hg]Parveen Armen [address] [place], [place] 0720401-30-2024 04:56-0500Heart rate60 /minNoah Armen [address] [place], [place] 0720401-30-2024 04:56-0500Mean blood vardqkre24 mm[Hg]Parveen Armne [address] [place], [place] 0720401-30-2024 04:56-0500 Respiratory rate18 /minNoah Armen [address] [place], [place] 0720401-30-2024 04:56-3275IsK0% (BldA) [Mass fraction]100 %Parveen Amren [address] [place], [place] 0720401-30-2024 04:56-0500 Systolic blood wrzrhxlo093 mm[Hg]Parveen Armen [address] [place], [place] 0720401-30-2024 04:27-0500gluc 96 mg/dLNoizabel Armen [address] [place], [place] 0720401-30-2024 04:27-0500gluc Parveen Armen [address] [place], [place] 0720401-30-2024 04:13-0500Body mwsltydtgpo58.98 [degF]Parveen Armen [address] [place], [place] 0720401-30-2024 04:13-0500Heart rate83 /minNoah Armen [address] [place], [place] 8411601-30-2024 04:13-0500 Respiratory rate16 /minNoah Armen [address] [place], [place] 8411612-29-2023 08:55-0500Body nwyyyg292.1 Tank Nazario MD Work Phone: [facility] HospitalMlyandmizn20-34-7932 08:55-0500Body mass index (BMI) [Ratio]19.44 kg/p1MisfhPeggy Nazario MD Work Phone: [facility] HospitalDtdqqhoexf22-98-0100 08:55-0500Body temperature 97.9 [degF]Peggy Nazario MD Work Phone: 1(419)668-[address] [place], [place] [address]Pnobezjnxb30-85-0505 08:55-0500Body ceuxvm90.98 kgPeter Aravind MCMAHON Work Phone: [facility] HospitalXdamlyupvd76-69-3583 08:55-0500Diastolic blood quhewoti12 mm[Hg]Peggy Nazario MD Work Phone: [facility] HospitalUnbvtkvqtf72-52-4214 08:55-0500Heart rate69 /min Peggy Nazario MD Work Phone: [facility] HospitalPrjildxssk46-95-3117 08:55-6114NsX1% (BldA) [Mass fraction]99 %Peggy Nazario MD Work Phone: [facility] HospitalDweqjzguwg76-95-0451 08:55-0500Systolic blood fzquryke854 mm[Hg]Peggy Nazario MD Work Phone: [facility] HospitalSsmuxhuvdk25-01-4473 06:46-0500Blood Pressure LocationDaalexandre HENRIQUEZ [facility]12-08-2023 06:46-0500 Diastolic blood dqnhavyi35 mm[Hg]Johan HENRIQUEZ [facility]12-08-2023 06:46-0500Heart rate81 /Nery HENRIQUEZ [facility]12-08-2023 06:46-0500 Respiratory rate18 /Nery HENRIQUEZ [facility]12-08-2023 06:46-4643PcV2% (BldA) [Mass fraction]100 %Johan HENRIQUEZ [facility]12-08-2023 06:46-0500 Systolic blood osmjzbcx885 mm[Hg]Johan HENRIQUEZ [facility]12-07-2023 09:56-0500Blood Pressure LocationDaalexandre HENRIQUEZ [facility]12-07-2023 09:56-0500 Diastolic blood tsudnkxa37 mm[Hg]Johan HENRIQUEZ [facility]12-07-2023 09:56-0500Heart rate62 /Nery HENRIQUEZ [facility]12-07-2023 09:56-1049OyD9% (BldA) [Mass fraction]98 %Johan HENRIQUEZ [facility]12-07-2023 09:56-0500 Systolic blood mm[Hg]Johan HENRIQUEZ [facility]11-24-2023 12:38-0500 Diastolic blood ugctszke59 mm[Hg]Jeff Tay [facility]11-24-2023 12:38-0500Heart rate94 /minJohn Tay [address] [place], [place] 8411611-24-2023 12:38-0500 Respiratory rate13 /minJohn Tay [address] [place], [place] 8411611-24-2023 12:38-5534OvN5% (BldA) [Mass fraction]94 %Jeff Wadee [facility]11-24-2023 12:38-0500 Systolic blood jfuskfun251 mm[Hg]Jeff Cross [facility]11-24-2023 12:00-0500 Diastolic blood wqffosys47 mm[Hg]Jeff Cross [address] [place], [place] 8411611-24-2023 12:00-0500Heart fomd849 /minJohn Tay [facility]11-24-2023 12:00-0500Mean blood xkyxzxof90 mm[Hg]Jeff Cross [facility]11-24-2023 12:00-0500 Respiratory rate17 /minJohn Tay [address] [place], [place] 2871911-24-2023 12:00-0716MyN7% (BldA) [Mass fraction]96 %Jeff Cross [address] [place], [place] 8411611-24-2023 11:34-0500 Diastolic blood niweyznq49 mm[Hg]Jeff Cross [address] [place], [place] 0720411-24-2023 11:34-0500Heart rate93 /minJohn Tay [address] [place], [place] 8411611-24-2023 11:34-0500 Respiratory rate18 /minJohn Tay [address] [place], [place] 0720411-24-2023 11:34-5444FqP4% (BldA) [Mass fraction]94 %Jeff Cross [address] [place], [place] 0720411-24-2023 11:34-0500 Systolic blood rmxgyugv230 mm[Hg]Jeff Cross [address]11-24-2023 09:52-0500Heart oygq382 /minJohn Tay [address] [place], [place] 8411611-24-2023 08:57-0500Body gjkcdsxufmm13.88 [degF]Jeff Cross [address] [place], [place] 8411611-24-2023 08:57-0500Heart kjfi604 /minJohn Tay [address] [place], [place] 8411611-24-2023 08:57-0500 Respiratory rate24 /minJohn Tay [address] [place], [place] 8411611-23-2023 14:03-0500 Hourly RoundingRonobir ABDI [address] [place], [place] 8411611-23-2023 14:03-0500 Promise to ReturnRonobir ABDI [address] [place], [place] 8411611-23-2023 13:34-0500 Hourly RoundingRonobir ABDI [address] [place], [place] 0720411-23-2023 13:00-0500 Hourly RoundingRonobir ABDI [address] [place], [place] 0720411-23-2023 13:00-0500 Promise to ReturnRonobir ABDI [address] [place], [place] 8411611-23-2023 12:07-0500 Promise to ReturnRonobir ABDI [address] [place], [place] 0720411-23-2023 12:00-0500Blood Pressure LocationRonobir ABDI [address] [place], [place] 0720411-23-2023 12:00-0500Body askotoafhhe31.06 [degF]Ronobir ABDI [address] [place], [place] [id number] 12:00-0500 Diastolic blood ujaknpwa07 mm[Hg]Ronobir ABDI [address] [place], [place] [id number] 12:00-0500Heart rate78 /minRonobir ABDI [address] [place], [place] [id number] 12:00-0500Mean blood qaivyrxa44 mm[Hg]Ronobir ABDI [address] [place], [place] [id number] 12:00-4905JgF6% (BldA) [Mass fraction]94 %Ronobir ABDI [address] [place], [place] [id number] 12:00-0500 Systolic blood rzbgnlii004 mm[Hg]Ronobir ABDI [address] [place], [place] [id number] 10:00-0500 Diastolic blood csmmewtv23 mm[Hg]Ronobir ABDI [address] [place], [place] [id number] 10:00-0500Heart rate77 /minRonobir ABDI [address]11-23-2023 10:00-0500Mean blood sekdlmuo48 mm[Hg]Ronobir ABDI [address] [place], [place] [id number] 10:00-0500 Systolic blood wrqmmxmo925 mm[Hg]Ronobir ABDI [address] [place], [place] [id number] 07:00-0500Body zalyzudyvtq67.7 [degF]Ronobir ABDI [address] [place], [place] [id number] 07:00-0500 Diastolic blood qfowyzyg28 mm[Hg]Ronobir ABDI [address] [place], [place] [id number] 07:00-6952BiF0% (BldA) [Mass fraction]93 %Ronobir ABDI [address]11-23-2023 07:00-0500 Systolic blood mdlikcpr64 mm[Hg]Ronobir ABDI [address] [place], [place] [id number] 00:18-0500Body mxmjfkjyapo50.7 [degF]Ronobir ABDI [address] [place], [place] [id number] 00:18-5023IrI2% (BldA) [Mass fraction]93 %Ronobir ABDI [address] [place], [place] 8411611-22-2023 22:10-0500Mean blood etwhexvw57 mm[Hg]Ronobir ABDI [address] [place], [place] 0720411-22-2023 16:03-0500Mean blood abmtgkhy68 mm[Hg]Ronobir ABDI [address] [place], [place] 0720411-22-2023 11:18-0500Mean blood ddapjqgq31 mm[Hg]Ronobir ABDI [address] [place], [place] 8411611-22-2023 11:18-0500Body kkmktdjqiyg21.06 [degF]Ronobir ABDI [address] [place], [place] 0720411-22-2023 09:59-0500Mean blood mm[Hg]Ronobir ABDI [address] [place], [place] 8411611-22-2023 09:58-0500Body uucoizlhyzu37.42 [degF]Ronobir ABDI [address] [place], [place] 0720411-21-2023 19:23-0500Body uwaryecpgre19.7 [degF]Ronobir ABDI [address] [place], [place] 0720411-20-2023 18:22-0500 BP/Pulse Patient PositionRonobir ABDI [address] [place], [place] 0720411-20-2023 14:00-0500 Respiratory rate17 /minRonobir ABDI [address] [place], [place] 0720411-20-2023 06:46-0500 Respiratory rate18 /minRonobir ABDI [address] [place], [place] 0720411-20-2023 06:45-0500 BP/Pulse Patient PositionRonobir ABDI [address] [place], [place] 0720411-20-2023 04:30-0500 Respiratory rate16 /minRonobir ABDI [address] [place], [place] 8411611-20-2023 02:45-0500Heart rate90 /minRonobir ABDI [address] [place], [place] 8411611-20-2023 02:30-0500 Respiratory rate12 /minRonobir ABDI [address] [place], [place] 0720411-20-2023 02:15-0500 Respiratory rate13 /minRonobir ABDI [address] [place], [place] 0720411-19-2023 21:27-0500Heart zpvq669 /minRonobir ABDI [address] [place], [place] 0720411-19-2023 21:27-0500 Respiratory rate18 /minRonobir ABDI [address] [place], [place] 0720411-18-2023 00:30-0500 Diastolic blood mtgywdpq14 mm[Hg]Kaylinn Dokken [address] [place], [place] 0720411-18-2023 00:30-0500Heart vqcv215 /minKaylinn Dokken [address] [place], [place] 0720411-18-2023 00:30-0500Mean blood yvgpiqom24 mm[Hg]Kaylinn Dokken [address] [place], [place] 0720411-18-2023 00:30-0500 Respiratory rate18 /minKaylinn Dokken [address] [place], [place] 0720411-18-2023 00:30-1821NuW3% (BldA) [Mass fraction]95 %Kaylinn Dokken [address] [place], [place] 0720411-18-2023 00:30-0500 Systolic blood kivxxsrc50 mm[Hg]Kaylinn Dokken [address] [place], [place] 0720411-17-2023 23:24-0500 Diastolic blood jixmjpdr24 mm[Hg]Kaylinn Dokken [address] [place], [place] 0720411-17-2023 23:24-0500Heart ddre117 /minKaylinn Dokken [address] [place], [place] 0720411-17-2023 23:24-0500Mean blood kcyswkcy49 mm[Hg]Kaylinn Dokken [address] [place], [place] 2871911-17-2023 23:24-0500 Respiratory rate16 /minKaylinn Dokken [address] [place], [place] 0720411-17-2023 23:24-2063HpO2% (BldA) [Mass fraction]94 %Kaylinn Dokken [address] [place], [place] 0720411-17-2023 23:24-0500 Systolic blood krpbqedj351 mm[Hg]Kaylinn Dokken [address] [place], [place] 0720411-17-2023 22:30-0500Body uyoxxcxucla38.88 [degF]Kaylinn Dokken [address] [place], [place] 0720411-17-2023 22:30-0500 Diastolic blood dlykbboy066 mm[Hg]Kaylinn Dokken [address] [place], [place] 0720411-17-2023 22:30-0500Heart cfeb295 /minKaylinn Dokken [address] [place], [place] 0720411-17-2023 22:30-0500Mean blood jkctoczy717 mm[Hg]Kaylinn Dokken [address] [place], [place] 0720411-17-2023 22:30-0500 Respiratory rate18 /minKaylinn Dokken [address] [place], [place] 0720411-17-2023 22:30-2642TiA0% (BldA) [Mass fraction]100 %Kaylinn Dokken [address] [place], [place] 0720411-17-2023 22:30-0500 Systolic blood akurbymh995 mm[Hg]Kaylinn Dokken [address] [place], [place] 0720411-17-2023 19:33-0500Body talrgcytlmh93.7 [degF]Kaylinn Dokken [address] [place], [place] 2871911-17-2023 19:33-0500Heart nwvz263 /Wale Masterson [address]09-13-2023 15:19-0400Blood Pressure LocationPaabelino BROOKS [facility]09-13-2023 15:19-0400Diastolic blood xvjybqtb14 mm[Hg]Micheline BROOKS [facility]09-13-2023 15:19-0400Heart rate80 /minMicheline BROOKS [facility]09-13-2023 15:19-0400Systolic blood bmqaxjnf980 mm[Hg]Micheline BROOKS [facility]08-22-2023 16:30-0400Diastolic blood mm[Hg]Jeff Wadee [address] [place], [place] 8411608-22-2023 16:30-0400Heart rate39 /Juan Cross [address] [place], [place] 8411608-22-2023 16:30-0400 Respiratory rate14 /Juan Cross [address] [place], [place] 8411608-22-2023 16:30-0938RzZ1% (BldA) [Mass fraction]99 %Jeff Tay [address] [place], [place] 8411608-22-2023 16:30-0400 Systolic blood ggnzcmov622 mm[Hg]Jeff Cross [address] [place], [place] 8411608-22-2023 15:52-0400Body ygitxanopgu44.06 [degF]Jeff Cross [address] [place], [place] 8411608-22-2023 15:52-0400 Diastolic blood mohhdkgo22 mm[Hg]Jeff Cross [address]08-22-2023 15:52-0400Heart rate66 /Juan Cross [address] [place], [place] 8411608-22-2023 15:52-0400 Respiratory rate14 /Juan Cross [address] [place], [place] 8411608-22-2023 15:52-4136GbS9% (BldA) [Mass fraction]99 %Jeff Cross [address]08-22-2023 15:52-0400 Systolic blood ffuukhua865 mm[Hg]Jeff Cross [address]08-22-2023 14:52-0400 Diastolic blood akyuztnk59 mm[Hg]Jeff Cross [address]08-22-2023 14:52-0400Heart rate64 /Juan Cross [address] [place], [place] 8411608-22-2023 14:52-0400 Respiratory rate14 /Juan Cross [address] [place], [place] 8411608-22-2023 14:52-1804WyA3% (BldA) [Mass fraction]100 %Jeff Cross [address] [place], [place] 8411608-22-2023 14:52-0400 Systolic blood uanithpp72 mm[Hg]Jeff Cross [address] [place], [place] 8411608-22-2023 14:07-0400Body jygbxhqfhhy87.06 [degF]Jeff Cross [address] [place], [place] 8411608-22-2023 13:52-0400Body hkzkeyusssy94.24 [degF]Jeff Cross [address] [place], [place] 8411608-22-2023 13:52-0400Heart oqps514 /minJeff Wadee [facility]06-17-2023 21:23-0400Body oykhnmxoyng33.7 [degF][facility]06-17-2023 21:23-0400Diastolic blood olujdmzj61 mm[Hg][facility]06-17-2023 21:23-0400Heart rate82 /[facility]06[facility]17-2023 21:23-0400Respiratory rate18 /[facility]06[facility]17-2023 21:23-5954HcQ0% (BldA) [Mass fraction]97 %[facility]06-17-2023 21:23-0400Systolic blood pressure 125 mm[Hg][facility]01-19-2023 14:01-0500 Diastolic blood vzdjajao13 mm[Hg]Yennifer Iraheta [facility]01-19-2023 14:01-0500Mean blood phexrqej34 mm[Hg]Yennifer Iraheta [facility]01-19-2023 14:01-0500 Systolic blood vaocfbaa892 mm[Hg]Yennifer Iraheta [facility]01-19-2023 13:48-0500Blood Pressure LocationMohamed Esequiel [address] [place], [place] 6832901-19-2023 13:48-0500 Diastolic blood pjtyonbp80 mm[Hg]Yennifer Iraheta [facility]01-19-2023 13:48-0500Heart rate60 /minMohamed Esequiel [facility]01-19-2023 13:48-6271HlA9% (BldA) [Mass fraction]98 %Yennifer Iraheta [address] [place], [place] 6832901-19-2023 13:48-0500 Systolic blood zaeywuoj116 mm[Hg]Yennifer Iraheta [facility]10-31-2022 08:54-0400Blood Pressure LocationMohamed Esequiel [address] [place], [place] 6832910-31-2022 08:54-0400 Diastolic blood lrenbndo74 mm[Hg]Yennifer Iraheta [address] [place], [place] 6832910-31-2022 08:54-0400Heart rate75 /minMohamed Esequiel [address] [place], [place] 6832910-31-2022 08:54-3274MkR7% (BldA) [Mass fraction]96 %[facility] [address] [place], [place] 6832910-31-2022 08:54-0400 Systolic blood tdyyrzxm135 mm[Hg]Yennifer Iraheta [address] [place], [place] 6832907-21-2022 09:59-0400Blood Pressure LocationJENNIFER BLADIMIR [facility] 07-21-2022 09:59-0400Diastolic blood noxmbkoz88 mm[Hg] CARMINA BLADIMIR [facility] 07-21-2022 09:59-0400Heart rate77 /minJENNIFER BLADIMIR [facility] 07-21-2022 09:59-0400Systolic blood kfjobpoo312 mm[Hg] CARMINA BLADIMIR [facility] 07-05-2022 13:17-0400Body ibuvbrhwffw26.6 [degF]Jeff Cross [address] [place], [place] 8411607-05-2022 13:17-0400 Diastolic blood ijaiuoph54 mm[Hg]Jeff Cross [address] [place], [place] 8411607-05-2022 13:17-0400Heart rate86 /minJeff Cross [address] [place], [place] 8411607-05-2022 13:17-0400 Respiratory rate18 /minJeff Cross [address]07-05-2022 13:17-1155AsP9% (BldA) [Mass fraction]99 %Jeff Cross [address] [place], [place] 8411607-05-2022 13:17-0400 Systolic blood mm[Hg]Jeff Cross [address]05-13-2022 17:39-0400Body igepwhnsroq74.7 [degF]Jeff Cross [address] [place], [place] 8411605-13-2022 17:39-0400 Diastolic blood nlaesxje28 mm[Hg]Jeff Cross [address] [place], [place] 8411605-13-2022 17:39-0400Heart rate81 /Juan Cross [address] [place], [place] 8411605-13-2022 17:39-0400 Respiratory rate15 /minJeff Cross [address] [place], [place] 8411605-13-2022 17:39-9145XsE6% (BldA) [Mass fraction]100 %Jeff Cross [address] [place], [place] 8411605-13-2022 17:39-0400 Systolic blood mm[Hg]Jeff Cross [address] Encounters Encounter DateEncounter TypeCare ProviderFacilityStart: 73-54-4792Wboudibkzt and management of inpatientSAMER J [facility]tart: 34-89-5664Tynctwyatr and management of inpatientGEORGE [facility]art: 31-04-4484mflyihuyqvXIDBBE [facility]: 05-27-2025 End: 36-45-2785Faxehsxvqx and management of inpatientGEORGE [facility] Systemtart: 05-19-2025 End: 08-06-2662gdqsdhkdydBYONRU [facility] Start: 05-14-2025 End: 57-42-1088Crtbuztheron Brian MD [facility] Phone: [facility] 05-14-2025 End: 71-98-4102Phepwvtheron Brian MD Work Phone: [facility]: 05-14-2025 End: 57-07-1417Uxredv outpatient visit 25 minutesHannah Brain MD Work Phone: [facility] HospitalComment on above:Bee sting, accidental or unintentional, initial encounter (Primary Dx); Gastroesophageal reflux disease without esophagitis; Ear fullness, right; Fluid level behind tympanic membrane of right earStart: 05-14-2025 End: 07-31-8714tgnoxcfkurZDFPAHardeep Valenzuela AvailableStart: 05-08-2025 End: 70-46-3417Fwtizh outpatient visit 40 Suad Brian MD Work Phone: [facility] HospitalComment on above: Hematuria, unspecified type (Primary Dx); Painful urination; C. difficile diarrhea; Mitral valve regurgitation due to cardiomyopathy (HCC); Atrial fibrillation, persistent (HCC); skilled nursing current use of anticoagulantStart: 05-08-2025 End: 83-80-2262losmdvosttFYKDHHardeep Valenzuela AvailableStart: 05-08-2025 End: 40-69-8335Fwlbfsleobardo Brian MD Work Phone: noms [facility] MedicineStart: 05-08-2025 End: 28-55-2763Qsnstgtheron Brian MD Work Phone: noDay [facility] MedicineStart: 04-28-2025 End: 22-24-2432Thmsfxucr department patient visitAstrpamela Cazares CyrusariFacility:[facility] Start: 04-24-2025 End: 15-95-6608tjihbrfxnzDibpd M. 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; AnxietyStart: 04-21-2025 End: 67-70-4056nzwgdhfmccCZPPNHardeep Valenzuela AvailableStart: 04-19-2025 End: 83-95-7337Lwiwfhxpg Sanjiv Brian MD Work Phone: noDay [facility] MedicineComment on above:Other (call person)Start: 04-19-2025 End: 19-09-1501Aekifvmqt department patient visitJayson CallowayFacility:[facility] Start: 04-17-2025 End: 75-28-7776IbptjkApfcw M Ruggles MD Work Phone: noms [facility] HEALTHComment on above:AnxietyStart: 04-16-2025 End: 86-93-6927xaijllqzlmHIIKIW [facility] Start: 04-07-2025 End: 12-37-6120Etdwpqtheron Brian MD Work Phone: noMS [facility]: 04-07-2025 End: 80-62-4222Wujlkatheron Brian MD Work Phone: noMS [facility] Parisi MedicineStart: 04-07-2025 End: 14-77-1906Mqmeog outpatient visit 25 Suad Brian MD Work Phone: noDay [facility] MedicineComment on above:Frequent urination (Primary Dx); Painful urination; Left lower quadrant pain; Gastroesophageal reflux disease without esophagitis; Exertional dyspnea; Mitral valve regurgitation due to cardiomyopathy (HCC); Hypertensive heart disease with heart failure (HCC); Unspecified systolic (congestive) heart failure (HCC)Start: 04-07-2025 End: 70-81-4670xtglsttdpwFVNFZHardeep Valenzuela AvailableStart: 03-31-2025 End: 06-57-1430gamtjuceaaGXCVUTDunlap Memorial Hospital Start: 02-18-2025 End: 75-14-4872xnwplmcymtEUPLBlanchard Valley Health Systemtart: 02-10-2025 End: 97-98-0842bmvmfnxhhlVYUNVACommunity Memorial Hospital Start: 01-23-2025 End: 95-18-3644lbmxqmwobuWCKHFJI [facility]tart: 01-22-2025 End: 74-46-1551Kovjtgtheron Brian MD Work Phone: noMS NE FMStart: 01-22-2025 End: 59-35-7503Gvmusotheron Brian MD Work Phone: noms NE FMStart: 01-22-2025 End: 00-72-5316Syvalu outpatient visit 25 minutesHannah Brian MD Work Phone: noms NE FMComment on above:Atrial fibrillation, persistent (HCC) (CMS/HCC) (Primary Dx); 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; Mitral valve regurgitation due to cardiomyopathy (HCC) (CMS/HCC); AnxietyStart: 01-22-2025 End: 36-46-2336plyjubngooYTVWCHardeep Valenzuela AvailableStart: 13-56-6877Wtibzfpjtl and management of inpatientGEORGE [facility] Start: 44-03-0556Agvgllmnyf and management of inpatientCONNIE [facility]: 92-74-5385xgozwqyiwwEQXHXJ [facility]: 01-14-2025 End: 84-22-0307Wfnzpklpxp and management of inpatientGEORGE [facility]tart: 01-13-2025 End: 34-25-8726QummbuRypj MonroeNOMS NE FMComment on above:AnxietyStart: 01-07-2025 End: 70-38-1434Uylcqv outpatient visit 25 minutesHannah Brian MD Work Phone: noms NE FMComment on above:Atrial fibrillation, persistent (HCC) (CMS/HCC) (Primary Dx); 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; Primary hypertension (CMS/HCC); Anxiety; Panic attack (CMS/HCC)Start: 01-07-2025 End: 05-01-3377ivwbnaqftqMMMPBHardeep Valenzuela AvailableStart: 01-07-2025 End: 93-19-2166Hhalcntheron Brian MD Work Phone: noms NE FMStart: 01-07-2025 End: 89-66-9110Nexelltheron Brian MD Work Phone: noms NE FMStart: 19-08-3381lvnmwkqzdpXNVRVFSalem City Hospitaltart: 12-17-2024 End: 91-79-5476Ooxbkh outpatient visit 15 minutesHannah Brian MD Work Phone: noms NE FMComment on above:Hematuria, unspecified type (Primary Dx); Right flank pain; Dysuria; Urinary frequencyStart: 12-17-2024 End: 10-88-6416bxexlmsihcXTJYRHardeep Valenzuela AvailableStart: 12-17-2024 End: 18-18-3604Hwalrgtheron Brian MD Work Phone: noms NE FMStart: 12-17-2024 End: 74-63-6527Euaqcytheron Brian MD Work Phone: noms NE FMStart: 12-16-2024 End: 51-67-9001HhdjzsVurzw M Ruggles MD Work Phone: [facility]UL[facility] HEALTHComment on above:AnxietyStart: 76-13-1042pkdbetxydbTRRDGrant Hospitaltart: 11-29-2024 End: 96-49-1774rgjtjmrhvhSEYHGrant Hospitaltart: 11-25-2024 End: 84-10-3349Rvxlnitheron Brian MD Work Phone: noms NE FMStart: 11-25-2024 End: 50-29-6347Fnnofo Agusto Brian MD Work Phone: noms NE FMStart: 11-25-2024 End: 83-49-9121Sbrcbe outpatient visit 25 minutesHannah Brian MD Work Phone: noms NE FMComment on above:Acute cough (Primary Dx); Bruising; skilled nursing current use of anticoagulant; Atrial fibrillation, persistent (HCC) (CMS/HCC); Primary hypertension (CMS/HCC); Cardiomyopathy, unspecifiedStart: 11-25-2024 End: 99-13-0727dxuqqfuganZLKHZHardeep Valenzuela AvailableStart: 11-18-2024 End: 18-32-8073Ywgxfznn Result Sanjiv Brian MD Work Phone: noms External Department UnsolicitedStart: 11-18-2024 End: 54-40-0712Hchrwctv Result Sanjiv Brian MD Work Phone: noms External Department UnsolicitedStart: 11-18-2024 End: 91-19-6571Zwdurl outpatient visit 25 minutesHannah Brian MD Work Phone: noms NE FMComment on above:Acute cough (Primary Dx); Hematuria, unspecified type; 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; Atrial fibrillation, persistent (HCC) (CMS/HCC); Primary hypertension (CMS/HCC)Start: 11-18-2024 End: 36-00-0341wshzpaoqatJXLIB M RUGGLESNot AvailableStart: 11-15-2024 End: 37-11-9046PupdokAadlj M Ruggles MD Work Phone: noms POPULATION HEALTHComment on above:AnxietyStart: 10-22-2024 End: 69-18-6171nupslqzffvGUMYBlanchard Valley Health Systemtart: 10-08-2024 End: 27-83-1775Dsxrmu Renan ABRAMS Work Phone: noms NE FMStart: 10-08-2024 End: 58-58-4333Iyharlleobardo ABRAMS Work Phone: noms NE FMStart: 10-08-2024 End: 05-94-2182Rlybjz outpatient visit 25 minutesSherlyn ABRAMS Work Phone: noms NE FMComment on above:Primary hypertension (CMS/HCC) (Primary Dx); Atrial fibrillation, persistent (HCC) (CMS/HCC); Atherosclerosis of aorta (CMS/HCC); Panic attack (CMS/HCC)Start: 10-08-2024 End: 48-28-9811gebeycbmplZMNBKJU J SOMMERSNot AvailableStart: 09-20-2024 End: 96-81-9869Aqadwjxsb Sanjiv Brian MD Work Phone: noms NE FMComment on above:Med RefillStart: 08-20-2024 End: 14-72-2560PmwtpaHjtkp M Ruggles MD Work Phone: noms POPULATION HEALTHComment on above:AnxietyStart: 08-12-2024 End: 68-77-1823Mhmypt outpatient visit 25 minutesRickie Aviles WAFER FAB TECHNICIAN Work Phone: noms NE FMComment on above:Dysuria (Primary Dx); Urinary frequency; Atrial fibrillation, persistent (HCC) (CMS/HCC); 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; BMI 22.0-22.9, adultStart: 08-12-2024 End: 78-41-9690ndwdqmcihjWXMXXWB A DONNAMILLERNot AvailableStart: 08-12-2024 End: 10-04-5996Zgfeta Doc Aviles WAFER FAB TECHNICIAN Work Phone: noms NE FMStart: 08-12-2024 End: 13-97-1068Mkhkfs Doc Aviles WAFER FAB TECHNICIAN Work Phone: noms NE FMStart: 08-05-2024 End: 35-65-3827Kshisv outpatient visit 25 minutesStephan Boo DO Work Phone: noms SWS OBComment on above:Postmenopausal atrophic vaginitis; Breast cancer screening by mammogramStart: 08-05-2024 End: 61-73-5941iryibadrspHUDGYNY D BRUNERNot AvailableStart: 07-30-2024 End: 40-36-5902zcqptwxakmJMER [facility] Centertart: 07-22-2024 End: 00-97-6777KlutbfSztucPatricia Brian MD Work Phone: noms POPULATION HEALTHComment on above:AnxietyStart: 07-02-2024 End: 94-76-6219vkzdsphtvmTXDWXEL [facility]tart: 07-01-2024 End: 72-79-7576Nnxwxe outpatient visit 25 minutesSherlyn ABRAMS Work Phone: noms NE FMComment on above:DysuriaStart: 07-01-2024 End: 13-55-3647ijeewqqgbcRZPPPSH J SOMMERSNot AvailableStart: 07-01-2024 End: 55-11-2935Fdsewy Renan ABRAMS Work Phone: noms NE FMStart: 07-01-2024 End: 75-69-7896Onuukh Renan ABRAMS Work Phone: noms NE FMStart: 06-27-2024 End: 55-70-1786mkararpyyxKCUPI DOUGLAS CROSBYFacility:[facility] Start: 06-27-2024 End: 37-30-9826Htazswq encounter procedureSkenzie Goldsmith MD Work Phone: UrologyComment on above:Feeling of incomplete bladder emptying (Primary Dx); Stricture of female urethra, unspecified stricture typeStart: 06-10-2024 ambulatorySt. Rita's Hospitaltart: 06-10-2024 End: 01-80-0632fockahymfbJLNHSt. Rita's Hospitaltart: 06-03-2024 End: 27-05-5686nfwtuewyrrBQOP CHACKOFacility:[facility]art: 06-03-2024 End: 08-32-6731Yktcadj encounter procedureBR[facility] Start: 05-07-2024 End: 11-69-9568Shdwrtt encounter procedureSkenzie Goldsmith MD Work Phone: UrologyComment on above:Stricture of female urethra, unspecified stricture type (Primary Dx); Feeling of incomplete bladder emptyingStart: 05-07-2024 End: 03-59-4531zsjdjbjmkfZirenyDevyn Goldsmith MD Work Phone: UrologyStart: 97-71-0462ncabqsyvgnCtyqdaa R WATERS Facility:[facility] UnityStart: 14-98-9667ThgqvzOsdmqlHelen Rivas APRN.CNP Work Phone: CardiologyComment on above:Refill RequestStart: 11-22-2023 End: 00-44-1321Csqxcsors department patient visitJayson Calloway [facility] Start: 11-13-2023 End: 27-06-0564ibxpihqztdMcapl M DeniseаннаFacility:FTMCStart: 11-13-2023 End: 27-80-0473Kehvfnk encounter Inez Brian [facility] Start: 20-90-9188Peewfjrei encounterAlea Harley MD Work Phone: cardiologyComment on above:Patient UpdateStart: 10-16-2023 End: 93-25-4491Nrmzych encounter Lion Goldsmith MD Work Phone: UrologyComment on above:Feeling of incomplete bladder emptying (Primary Dx); Stricture of female urethra, unspecified stricture type; Severe protein-calorie malnutrition (HCC)Start: 10-16-2023 End: 24-00-1998ryjbtqugqbTWNRV DOUGLAS CROSBYFacility:[facility] Start: 10-05-2023 End: 02-74-6875Snqtvgtll department patient visitKoby Masterson [facility] Start: 09-44-1116Rkklpppfn encounterAlea Harley MD Work Phone: cardiologyComment on above:ResultsStart: 09-26-2023 End: 63-03-1648dmuemgpyroGpbjwg P Vasavada MD Work Phone: UrologyStart: 49-95-7021Kjuwbmhvr Result Encounter Generic External Data ProviderNOMS External Department UnsolicitedStart: 87-59-1396Ojpcortzi Result EncounterGeneric External Data ProviderNOMS External Department UnsolicitedStart: 09-26-2023 End: 94-64-4610Akastgi encounter Kelsy Rivas APRN.PUNCH OPERATOR Work Phone: CardiologyComment on above:Non-rheumatic mitral regurgitation (Primary Dx); Chronic HFrEF (heart failure with reduced ejection fraction) (HCC); Nonrheumatic tricuspid valve regurgitation; Non-ischemic cardiomyopathy (HCC); Persistent atrial fibrillation (HCC); 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; History of cardioversion; Primary hypertensionFeeling of incomplete bladder emptying (Primary Dx); Stricture of female urethra, unspecified stricture type; Severe protein-calorie malnutrition (HCC)Start: 77-41-8614Gxllnutgg encounter Alea Harley MD Work Phone: cardiologyComment on above:Medication ProblemStart: 09-18-2023 End: 37-34-3399Lleppq outpatient visit 40 William Nazario MD Work Phone: noms NE FMComment on above:Mitral valve insufficiency, unspecified etiology (Primary Dx); Anxiety; Paroxysmal atrial fibrillation (CMS/HCC); Other cardiomyopathy (CMS/HCC); Hospital discharge follow-up; Other thrombophilia (D68.69); Atherosclerosis of aorta (I70.0)Start: 59-89-2555Atdnybhmo encounterCarmina Mcmahan APRN.PUNCH OPERATOR Work Phone: CardiothoracicComment on above:Medication Problem Start: 09-17-2023 End: 25-10-3279Jtzxsabtt department patient visitParveen Ayers [facility] Start: 65-98-4746YudkymQxdlm D Crosby MD Work Phone: noms NE FMComment on above:AnxietyStart: 09-12-2023 RefJeanna Nazario MD Work Phone: noms NE FMComment on above:Gastroesophageal reflux disease without esophagitisStart: 09-12-2023 End: 07-93-0729Prodzwnpe department patient visitParveen Ayers [facility] Start: 08-28-2023 End: 92-03-4505ppdgqkprhrMHFIANette NAZARIOFacility:[facility] Start: 01-84-7351Vpofhoxxkn and management of inpatientUMESH N TRINITY [facility]: 08-23-2023 End: 47-00-4616Uewkntp encounter procedureRumichael Villalba DO Work Phone: [facility] MAINStart: 08-23-2023 End: 64-55-2273wtkaicjihrJetkkgz Nathaniel DO Work Phone: CardiologyStart: 08-11-2023 End: 37-15-5127Qvptso follow up visit related to original pxPeggy Nazario MD Work Phone: NOHV NE FMComment on above:Anxiety (Primary Dx); Chronic fatigue syndromeStart: 54-15-1513Girhhzqkg encounterPaabelino Sorto MD Work Phone: CardiothoracicComment on above:Insurance InquiryStart: 07-21-2023 End: 64-54-2377Phahxmfmg to same day surgery Rodríguez HENRIQUEZ [facility] Start: 07-21-2023 End: 20-28-6160ufqidvdoadZiczqr J NEWTONFacility:FTMCStart: 07-20-2023 End: 50-99-6725vjxfkfoyxxJHIV NONEFacility:FTMCStart: 07-20-2023 End: 31-73-2328Ltawdwy encounter procedureJohan HENRIQUEZ [facility] Start: 07-19-2023 End: 95-16-3294zmupnubxjjNklnmkd R WATERSFacility:[place]Start: 07-07-2023 End: 28-97-9540Vlmyrsqvy department patient visitJeff [facility] Start: 07-04-2023 End: 96-20-2512Nup-admission assessmentJose Albertoalexandre HENRIQUEZ [facility] Start: 07-02-2023 End: 92-46-7355eqkcfzermaVckbraq OJUKWUFacility:FTMCStart: 07-02-2023 End: 17-39-5796AgdzsyrjvpjQkrsgxi R ABDI [facility] Start: 06-30-2023 End: 46-60-7295Wejzhqail department patient visitKoby Salter Doligini [facility] Start: 04-26-2023 End: 65-76-6228Tsffgav encounter procedureMicheline BROOKS [facility] Shira Start: 04-04-2023 End: 19-86-4164Wysjwlteu department patient visitJeff Crsos [facility] Start: 01-28-2023 End: 04-25-6823Pjryvxgez department patient visitAstrit H YvetteMer[facility] Health – The [facility] Start: 12-05-2022 End: 67-89-8515Lhkyzyd encounter procedurePeSuacedo [facility] Start: 10-25-2022 End: 34-02-8439Wlvknrx encounter procedureMicheline BROOKS [facility] Start: 10-03-2022 End: 12-91-5632Mtctjlk encounter procedureLanelvia Salter ClemonsExec[facility] Jose Angel Start: 09-01-2022 End: 45-23-6596Fgknxvi encounter procedureMolucia Iraheta [facility] Start: 07-12-2022 End: 75-67-6147Netogyc encounter procedureMohamlucas Iraheta [facility] Start: 06-13-2022 End: 29-73-3395Rnhuvxc encounter procedureMolucia Iraheta [facility] Start: 03-03-2022 End: 26-88-5124Itqylvj encounter procedureJEYANIQUE GARRISON [facility] Shira Start: 02-15-2022 End: 36-61-1373Rwetfeove department patient visitJo Tay [facility] Start: 12-24-2021 End: 74-94-5174Fhszihghz department patient [facility]JoGu[facility] Start: 08-11-2021 End: 37-77-8652Bjxrkgi encounter procedurePeggy Nazario [facility] Procedures DateProcedureProcedure DetailPerforming ClinicianStart: 38-63-5248Dhfxe dip stick/tablet rgnt non-auto w/o Frances Brian MD Work Phone: start: 13-04-3718Qkruq dip stick/tablet rgnt non-auto w/o micrscSophy Brian MD Work Phone: start: 28-45-5388Anfrc dip stick/tablet rgnt non-auto w/o micrscpHanshelby Brian MD Work Phone: start: 01-38-7859Bryfnlr bacterial quanttative colony count urineHannah De Leon Snehal MCMAHON Work Phone: start: 48-36-6325Djegf dip stick/tablet rgnt non-auto w/o micrscpHanshelby Brian MD Work Phone: start: 78-93-6435Prnct dip stick/tablet rgnt non-auto w/o micrscpRickie Aviles NP Work Phone: start: 10-63-6509Lcygn dip stick/tablet rgnt non-auto w/o micrscpDeborah J Kt PA Work Phone: start: 11-20-0176Kgiri dip stick/tablet rgnt auto w/o microscopyBulk Order ProviderStart: 27-92-1917Nkocz dip stick/tablet rgnt auto w/o microscopySandeileen Goldsmith MD Work Phone: Start: 90-51-3331Kilcd dip stick/tablet reagent auto microscopyBulk Order ProviderStart: 71-14-9624FDN CBC PNL BLD AUTOGeneric External Data ProviderStart: 18-94-3583EpsuwlgphghcexgxNMNMZ KHOTStart: 95-57-0327Kkfenegecojxxva echocardiographyDaniwilton HENRIQUEZ Start: 54-81-0968Djysuooaqqkhhtl of both left and right heartRonobir ABDI Start: 01-30-2023H/O: hysterectomyStatus post hysterectomyPeter Aravind MCMAHON Work Phone: start: 44-61-4604Secgeowhuegabamuu with dilation of urethral stricturePatrick BROOKS Start: 73-39-0020OebdwrixjaCaljl Nazario start: 41-66-0851Qglpgkvn of urethraPeter Nazario start: 34-85-5701LfntuvkwytcGqujaho Vargo MD Work Phone: Start: 29-36-8605Shmwrzgfkbjtwcszt with dilation of urethral stricturePeter Nazario colon resectionPeter Nazario corneal implant (physical object)Peggy Nazario cystoscopyPeter Nazario dilation of urethraPeter Nazario comment on above:Dr. VenturaysterectomyPeter Aravind TonsillectomyPeter Aravind Plan of Treatment DateCare ActivityDetailAuthorStart: 35-47-4742Vkrmsifwc for malignant neoplasm of colonNOSaint John's Health SystemStart: 25-42-5196Hlqzx microalbumin profileDTaP,Tdap,Td Vaccine (5 - Td or Tdap)[facility]: 93-10-8256Apwzddqq Screening Diabetes ScreeningHolzer Hospitaltart: 20-62-4648Kavikzks ScreeningDiabetes ScreeningHolzer Hospitaltart: 84-98-3332Dvzqrgof ScreeningDiabetes Screening [facility]: 05-14-2025 End: 99-26-4793Shyrnet encounter /01/2025 11:40 AM EDT Office Visit [facility] [place] [facility] [address] [place] [phone] Hannah Brian MD [address] [place] [address] [facility] BerrienComment on above:Arrived Start: 05-08-2025 End: 21-57-3911Jtvhvwi encounter japmrthwo57/25/2025 2:20 PM EDT Office Visit [facility] Jose Angel [facility] [address] [place] [address] Hannah Brian MD [address] [place] [address] [facility]villeComment on above:Arrived Start: 04-21-2025 End: 30-36-9030Pwyufjy encounter konpmnqtu87/08/2025 3:00 PM EDT Office Visit [facility] Jose Angel [facility] [address] [place] [address] Hannah Brian MD [address] [place] [address] [facility] 04-09-2025 End: 58-61-5317Gvwwjyq encounter yxfsdwaec95/27/2025 3:20 PM EDT Office Visit [facility] NE FM [address] [place] [address] Hannah Brian MD [address] [place] [address] [facility] NE FMStart: 04-07-2025 End: 31-14-9409Buiymjn encounter wuihomqfw88/25/2025 1:40 PM EDT Office Visit NOMBenitez [place] [facility] Abraham [address] [place] [address] Hannah Brian MD [address] [place] [address] [facility] Jose Angel [facility] MedicineComment on above:Arrived Start: 01-22-2025 End: 51-19-1184Fxbfcmz encounter vbddettcr65/11/2025 2:00 PM EDT Office Visit [facility] [address] [place] [address] Hannah Brian MD [address] [place] [address] ArrivedNOMS NE FMComment on above:ArrivedStart: 01-07-2025 End: 25-41-6981Jnyqiov encounter procedureNOMS NE FMComment on above:Arrived Start: 12-17-2024 End: 79-16-0819Kpyakkf encounter procedureNOMS NE FMComment on above:Arrived Start: 12-17-2024 End: 68-26-2137Jgtprjul identified in Urine by CultureUrine culture Microbiology Routine Right flank pain Dysuria Urinary frequency Expected: 12/17/2024 ( Approximate), Expires: 12/17/2025[facility] Work Phone: comment on above:Expected: 12/17/2024 (Approximate), Expires: 12/17/2025Start: 11-25-2024 End: 85-22-1460Vbkgmif encounter gdptubikq18/14/2025 11:00 AM EDT Office Visit [facility] NE [address] [place] [address] Pojieho, Hanna M, MD [address] [place] [address] ArrivedNOMS NE FMComment on above:ArrivedStart: 11-18-2024 End: 80-33-3461Ymruiqzi identified in Urine by CultureUrine culture Microbiology Routine Hematuria, unspecified type Expected: 11/18/2024 (Approximate), E xpires: 11/18/2025[facility] Work Phone: comment on above:Expected: 11/18/2024 (Approximate), Expires: 11/18/2025Start: 89-88-9605Axsukmjgljig Vaccine: 65+ Years (1 of 2 - PCV)Pneumococcal Vaccine: 65+ Years (1 of 2 - PCV)[facility] HealthcareComment on above:Postponed from 1956 (Patient Refused)Start: 10-08-2024 End: 90-41-5288Kxpzvbc encounter procedureNOMS NE FMComment on above:Arrived Start: 39-66-5165WR Controlled (<130/80)BP Controlled (<130/80)[facility] Start: 36-38-3643YM Controlled (<130/80)BP Controlled (<130/80)[facility] Start: 08-12-2024 End: 84-14-4137Hnqbdgp encounter cbcjleovc20/30/2024 4:00 PM EST Office Visit [facility] MONIQUE [address] [place] [address] Rickie Aviles NP [address] [place] [address] ArrivedFAWAD AMAYA FMComment on above:ArrivedStart: 08-05-2024 End: 71-75-7554Iypvlwb encounter kyypjthbs72/23/2024 2:45 PM EST Office Visit [facility] ERICKA OB [address] [place] [address] Stephan Boo, DO [address] [place] [address] [facility] OBStart: 08-05-2024 End: 18-23-5793GQC Breast - bilateral screeningBilateral screening mammogram with tomosynthesis Imaging Routine Breast cancer screening by mammogram Expected: 08/05/2024, Expires: 10/06/2025NOSaint John's Health System Work Phone: comment on above:Expected: 08/05/2024, Expires: 10/06/2025Start: 07-29-2024 End: 21-52-8762Umakidq encounter orsztotdk04/16/2024 3:45 PM EST Office Visit [facility] ERICKA OB [address] [place] [address] Stephan Boo, DO [address] [place] [address] [facility] SWS OBStart: 12-11-2024Medicare Annual Wellness (AWV) Medicare Annual Wellness (AWV)[facility] HealthcareStart: 07-01-2024 End: 22-20-2436Nmnyypg encounter zrcxwytzo71/18/2024 3:30 PM EST Office Visit [facility] NE [address] [place] [phone] Sherlyn Meraz PA [address] [place] [address] ArrivedNODOCTORS HOSPITAL OF WEST COVINAComment on above:ArrivedStart: 07-01-2024 End: 09-22-9282Irydtgfy identified in Urine by CultureUrine culture Microbiology Routine Dysuria Expected: 07/01/2024 (Approximate), Expires: 07/01/2025[facility] Work Phone: comment on above:Expected: 07/01/2024 (Approximate), Expires: 07/01/2025Start: 07-01-2024 End: 28-28-7239Chlucajjofncm metabolic 2000 panel - Serum or PlasmaComprehensive metabolic panel Lab Routine Dysuria Expected: 07/01/2024 (Approximate), Expires: 07/01/2025[facility] Work Phone: comment on above:Expected: 07/01/2024 (Approximate), Expires: 07/01/2025Start: 04-23-2024 End: 89-09-2774Brgubjv encounter tomawcilb98/10/2024 11:10 AM EDT Office Visit Urology [address] [address] Raphael Goldsmith MD [address] [place] [address] 6 month follow up per cc chartUrologyComment on above:6 month follow up per cc chartStart: 90-33-6257Xukpb-19 Vaccine ( season)Covid-19 Vaccine ( season)[facility]: 39-06-6038Mladjwdzl vaccinationHolzer Hospitaltart: 11-10-2023 End: 18-29-0736Lbxskvk encounter ncbomrdbx95/29/2024 1:00 PM EDT Office Visit [facility] NE [address] [place] [address] Peggy Nazario MD [address] [place] [address] FAWAD AMAYA FMStart: 11-08-2023 End: 69-86-2020Mebnm metabolic 2000 panel - Serum or PlasmaBASIC METABOLIC PNL Lab Routine Non-rheumatic mitral regurgitation Persistent atrial fibrillation (H CC) Non-ischemic cardiomyopathy (HCC) Chronic HFrEF (heart failure with reduced ejection fraction) (HCC) Expected: 11/08/2023 (Approximate), Expires: 02/07/2024 [facility] Work Phone: Comment on above:Expected: 11/08/2023 (Approximate), Expires: 02/07/2024Start: 11-08-2023 End: 56-86-2880MYX COMPLETEECG COMPLETE ECG Routine Non-rheumatic mitral regurgitation Persistent atrial fibrillation (HCC) Non-ischemic cardiomyopathy (HCC) Chronic HFrEF (heart failure with reduced ejection fraction) (HCC) Ex pected: 11/08/2023 (Approximate), Expires: 09/26/2024[facility] Work Phone: Comment on above:Expected: 11/08/2023 (Approximate), Expires: 09/26/2024Start: 10-25-2023 End: 74-61-8657Gzmpn metabolic 2000 panel - Serum or PlasmaBASIC METABOLIC PNL Lab Routine Non-rheumatic mitral regurgitation Persistent atrial fibrillation (H CC) Non-ischemic cardiomyopathy (HCC) Chronic HFrEF (heart failure with reduced ejection fraction) (HCC) Expected: 10/25/2023, Expires: 01/24/2024[facility] Work Phone: Comment on above:Expected: 10/25/2023, Expires: 01/24/2024Start: 10-25-2023 End: 29-22-8720LDA COMPLETEECG COMPLETE ECG Routine Non-rheumatic mitral regurgitation Persistent atrial fibrillation (HCC) Non-ischemic cardiomyopathy (HCC) Chronic HFrEF (heart failure with reduced ejection fraction) (HCC) Ex pected: 10/25/2023, Expires: 09/26/2024[facility] Work Phone: Comment on above:Expected: 10/25/2023, Expires: 09/26/2024Start: 10-10-2023 End: 44-26-3463Ospfq metabolic 2000 panel - Serum or PlasmaBASIC METABOLIC PNL Lab Routine Non-rheumatic mitral regurgitation Persistent atrial fibrillation (H CC) Non-ischemic cardiomyopathy (HCC) Chronic HFrEF (heart failure with reduced ejection fraction) (HCC) Expected: 10/10/2023 (Approximate), Expires: 01/09/2024 [facility] Work Phone: Comment on above:Expected: 10/10/2023 (Approximate), Expires: 01/09/2024Start: 10-10-2023 End: 06-71-9345JHP COMPLETEECG COMPLETE ECG Routine Non-rheumatic mitral regurgitation Persistent atrial fibrillation (HCC) Non-ischemic cardiomyopathy (HCC) Chronic HFrEF (heart failure with reduced ejection fraction) (HCC) Ex pected: 10/10/2023 (Approximate), Expires: 09/26/2024[facility] Work Phone: Comment on above:Expected: 10/10/2023 (Approximate), Expires: 09/26/2024Start: 10-06-2023 End: 82-45-7497Aaacogt encounter vxryhxvze83/23/2024 1:00 PM EST Office Visit [facility] MONIQUE QUEZADA [address] [place] [address] Peggy Nazario MD [address] [place] [address] NOMBenitez AMAYA FMStart: 09-26-2023 End: 09-13-1734Ypnrv metabolic 2000 panel - Serum or PlasmaBASIC METABOLIC PNL Lab Routine Non-rheumatic mitral regurgitation Persistent atrial fibrillation (H CC) Non-ischemic cardiomyopathy (HCC) Chronic HFrEF (heart failure with reduced ejection fraction) (HCC) Expected: 09/26/2023, Expires: 12/26/2023[facility] Work Phone: Comment on above:Expected: 09/26/2023, Expires: 12/26/2023Start: 40-94-9921Pxulbtx Directive DiscussionAdvance Directive DiscussionHolzer Hospitaltart: 92-53-8717Nerncuwklh Health ScreeningBehavioral Health ScreeningHolzer Hospitaltart: 99-56-3092Erdeuuetnc Assessment Depression AssessmentHolzer Hospitaltart: 78-27-1227Yfzsb-19 Vaccine ( season)Covid-19 Vaccine ( season)[facility]: 78-35-1492Qbiacbnan vaccinationInfluenza Vaccine (#1)[facility]: 32-58-5074EPP Vaccine (1 - 1-dose 75+ series)RSV Vaccine (1 - 1-dose 75+ series) [facility]: 64-54-9254Dlogdrs Directive DiscussionAdvance Directive DiscussionHolzer Hospitaltart: 85-87-7119Lcxfvixfqe AssessmentDepression AssessmentHolzer Hospitaltart: 66-53-2086IwrkurwbmgaQhpmrjswpedOreyvmqkt ClinicStart: 45-24-8744Dpcdedqtpb Cancer ScreeningColorectal Cancer Screening [facility]: 20-66-1776Ueswkjpln for malignant neoplasm of colon [facility]: 14-81-5303Bvwt Density ScreeningBone Density Screening [facility]: 66-01-8330Zuziovwbajmu Vaccine: 65+ (1 - PCV)Pneumococcal Vaccine: 65+ (1 - PCV)[facility]: 06-31-0269Tonatkxmszsa Vaccine: 65+ (1 of 1 - PCV)Pneumococcal Vaccine: 65+ (1 of 1 - PCV)[facility]: 02-06-6864Kdqtzmdqn for osteoporosisBone Density ScreeningOhiohealth O'Bleness Hospital Start: 66-94-8828YMS Vaccine (1 - 1-dose 60+ series)RSV Vaccine (1 - 1-dose 60+ series)[facility]: 19-47-9548Zabbplhk Vaccine (1 of 2)Shingrix Vaccine (1 of 2)[facility]: 36-87-5915Fxttkuxbr (FIT-DNA)Cologuard (FIT-DNA)[facility]: 31-98-9850JN ColonographyCT Colonography [facility]: 90-24-5941Igbrmedu ScreeningDiabetes ScreeningHolzer Hospitaltart: 40-84-2250Shhhm Occult BloodFecal Occult BloodOhiohealth O'Bleness Hospital Start: 34-22-1425Dplji 1996 panel - Serum or PlasmaLipid ScreeningHolzer Hospitaltart: 90-26-1359Gtvlb panelLipid ScreeningHolzer Hospitaltart: 31-24-6045Rhgkdarpu for malignant neoplasm of colonHolzer Hospitaltart: 03-02-2856PiliattphvimuXsqqyylpsapizCbikwpnlk ClinicStart: 1967 Pneumococcal Vaccine: 65+ Years (1 of 2 - PCV)Pneumococcal Vaccine: 65+ Years (1 of 2 - PCV)[facility] HealthcareStart: 19-79-9992Hcquru PCP Team Chronic Disease VisitAnnual PCP Team Chronic Disease VisitHolzer Hospitaltart: 56-50-4758OG Controlled (<130/80)BP Controlled (<130/80)[facility]: 1966 Depression ScreeningDepression ScreeningHolzer Hospitaltart: 1966 Hepatitis C ScreeningHepatitis C ScreeningHolzer Hospitaltart: 1966 Hepatitis C screeningHepatitis C ScreeningHolzer Hospitaltart: 1954 Pneumococcal Vaccine: 65+ Years (1 - PCV)Pneumococcal Vaccine: 65+ Years (1 - PCV)[facility] HealthcareStart: 42-54-3194Tydgqxyguqhl Vaccine: 65+ Years (1 of 2 - PCV)Pneumococcal Vaccine: 65+ Years (1 of 2 - PCV)[facility] HospitalStart: 48-49-8991Wdtfi-19 Vaccine (#1)Covid-19 Vaccine (#1)[facility]: 68-87-6783Kvmcxtvqf for malignant neoplasm of colonNOMS Healthcare CystourethroscopyCYSTO.PANENDO Procedures Routine Feeling of incomplete bladder emptying Stricture of female urethra, unspecified stricture type Ordered: 09/26/2023[facility] Work Phone: comment on above:Ordered: 09/26/2023ilat female urethra w/suppository&/instlj iniURETHRAL DILATION(FEMALE) Procedures Routine Stricture of female urethra, unspecified stricture type Feeling of incomplete bladder emptying Ordered: 09/24/[address] [place] [address] Work Phone: comment on above:Ordered: [address] [place] [address] Immunizations Immunization DateImmunizationNotesCare ThcdpuycYdmxislk64-85-4956iuccket toxoid, reduced diphtheria toxoid, and acellular pertussis vaccine, adsorbedPeggy Nazario MD Work Phone: [facility] HospitalIzoaxrztss32-83-8324duapyft and diphtheria toxoids, adsorbed, preservative free, for adult use (5 Lf of tetanus toxoid and 2 Lf of diphtheria toxoid)Peggy Nazario MD Work Phone: [facility] HospitalZmujkdtjxn72-12-8712evquerraid, tetanus toxoids and pertussis vaccinePeggy Nazario MD Work Phone: noSaint John's Health SystemQrsmmhfxvd61-20-8340xtehsklzdd and tetanus toxoids, adsorbed for pediatric usePeggy Nazario MD Work Phone: [facility] HospitalNEGATED: Highlighted row has not occurred!92-13-7995zsevozrwt virus vaccine, unspecified formulationJohan HENRIQUEZ [facility] Payers DatePayer CategoryPayerPolicy [id number] Member Subscriber Plan / Payer (Effective 2016-Present) Name: Harjit Asencio I Relation to Subscriber: Self Name: Harjit Asencio I Payer ID: Catherine file Group ID: [id number] Type: Not on file Address: [facility] [address] [place] [id number] .[id number]rzlj .2.840.968923.1.13.159.2.7.3.302011.91029-08-5607[id number] [id number].3.473729.315 [id number] [id number] 2.16.840.1.292070.3.57[id number] 2.840.1.955808.3.57[id number] 2.16840.1.724191.3.57[id number] 2.840.1.840092.3.579.2.35973-25-6019Cwzmctm66315656 2.840.1.362590.3.579.2.57699-33-3751Jpstpmd16292899 2.840.1.116858.3.579.2.76796-77-3397Kfjqiai39564105 2.840.1.156996.3.579.2.82083-94-9604Nxfhnpl15409722 2.840.1.540459.3.57[id number] 2.840.1.013478.3.579.2.50837-80-1128Mduyszc60275274 2.840.1.406730.3.579.[id number] 2.16840.1.193134.3.579.2.24794-13-0186Hwcbngy78696835 2.16840.1.678619.3.579.2.86779-16-3502Usdfbdr40776925 2.16840.1.085042.3.579.[id number] 2.16840.1.846563.3.579.2.69739-58-0992Dxkrgid41334356 2.16840.1.015847.3.579.2.44168-47-4796Gwhyute83742060 2.16840.1.849563.3.579.2.48077-69-0857Inwxnxa30393071 2.160.1.681901.3.579.2.84975-75-3277Fqfsubk76906260 2.0.1.918037.3.579.2.568227-28-6332Dnwczqe27769922 2.0.1.252742.3.579.2.867509-86-2086Asszqzb10784104 2.840.1.289105.3.579.2.340480-26-9480Qsbawbf54531393 2.0.1.981152.3.579.2.[id number] 2.0.1.298832.3.579.2.213475-08-6605Zdbkzcr3953669 2.0.1.938846.3.579.2.271838-85-2001Warjhtt3941341 2.0.1.938778.3.579.2.262712-92-2779Mxydiyn5532360 2.840.1.011121.3.579.2.150350-81-9806Dwtzyrt2340700 2.16840.1.964012.3.579.2.060485-23-4038Dhccury9355400 2.840.1.344587.3.579.2.418187-42-7754Sqorimt7690926 2.0.1.527614.3.579.2.252267-34-2923Svedjad0721632 2.840.1.948747.3.579.2.906113-81-7536Qbocqod9178463 2.0.1.167344.3.579.2.1259 Social History DateTypeDetailFacilityStart: 02-23-2021 End: 41-87-8714Jmcavoi smoking statusEx-smoker (finding)[facility] HospitalComment on above:DeniesStart: 07-08-2020 End: 46-75-2759Xyr Assigned At BirthFeUniversity Hospitals Geneva Medical CenterTobacco smoking statusNeverMercy Health – The Jewish HospitalComment on above:DeniesHistory of tobacco useCurrent smokerHolzer Hospitaltart: 10-24-2017 End: 40-98-9035Kyazgfn use and exposureSmokeless tobacco non-userCaneadea ClinicStart: 90-23-8631Kmvtybi intakeCurrent drinker of alcohol (finding) [facility]: 07-08-2020 End: 90-84-5915Sykgvmv of Social functionNOIN HealthcareStart: 09-26-2012 End: 30-97-4281Wubjlqc CommentQuit 1997. social smoker mostlyOhiohealth O'[facility] Start: 26-46-9397Jzk Assigned At BirthNot on fileOhiohealth O'Bleness HospitalHistory of tobacco useCigarette SmokerNOIN HealthcareStart: 09-12-2023 End: 68-16-1389Exwyjna intakeEx-drinker (finding)[facility] HealthcareHow often to you have a drink containing alcohol?Monthly or lessNOMS HealthcareHow many standard drinks containing alcohol do you have on a typical day?1 or 2NOMS HealthcareHow often do you have 6 or more drinks on 1 occasion?NeverNOMS HealthcareStart: 59-77-0769Nhbzovs Commentcaffeine: 1-2 cups/dayNOIN HealthcareNEGATED: Highlighted rowStart: NINFHistory of tobacco usePassive smokerNOMS Healthcare Goals DatePatient GoalDesired Activity/StatePersonal health goal Functional Status ShcpUjirvhszzjMbdbrrUqifnhuc26-53-4577Dlipwia Health Questionnaire 2 item (PHQ- 2) [Reported][facility] HospitalQoaemfhueh92-72-1072Ixsbuxiqqn StatusN/[facility]02-22-2024Functional StatusN/[facility]02-04-2024 Functional StatusN/[facility]01-30-2024Functional StatusN/A [facility]12-08-2023Functional Status[facility]12-07-2023Functional StatusReg[facility]11-24-2023 Functional StatusN/[facility]11-20-2023Functional StatusN/A [facility]11-19-2023Functional StatusMer[facility] – [facility]11-17-2023Functional StatusN/[facility]09-13-2023 Functional StatusN/[facility] 25-06-1699Sxhhenlkxx StatusN/[facility]06-17-2023Functional StatusN/[facility]03-08-2023Functional StatusN/[facility]02-20-2023Functional StatusN/[facility]01-19-2023Functional StatusReg[facility]10-31-2022Functional StatusReg[facility]07-21-2022 Functional StatusN/A[facility] 275173-52-4354Gttvwottun StatusN/[facility] Clinical Notes 12-24-2021 to 05-28-2025 Note Date & DubtIfpaTcklyxug82-54-4946 Note05/28/25 1443 Admission Assessment Questions Verify insurance [...] Status Interested Does the patient have a caser up assigned to them through their insurance? No [...] link and activate MyChart? 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 [...] To reach the Clinical Dietitian, please utilize [employer] chat Monday-Monday from 8AM-4PM or call extension [phone]. For weekends (Monday-Monday) and holidays, the Clinical Dietitian can be reached via pager [phone]) from 9AM-3PM. The Clinical Nutrition Department is un (more content not included)...[facility]10-15-2025 Note Attestation signed by Gabe Martinez [...] cervical adenopathy noted Ski (more content not included)...[facility]10-14-2025 NotePatient: Harjit Asencio Procedure Summary Date: 05/27/25 Room / Location: [facility] / [facility] (Cath) Anesthesia Start: 09 Anesthesia Stop: 1329 Procedure: Transcatheter Ohda-Ye-Mejm Repair (TriClip) Diagnosis: Chronic systolic heart failure [...] were no known notable events for this encounter.[facility]10-14-2025 NoteSpiritual Care Note Patient name: Harjit Asencio Age: 75 y.o. Room: [facility] VASCULAR POOL/NONE 05/27/25 1500 Clinical Encounter [...] in those relationships.) Pastoral Intervention Emotional support;Spiritual support;[place] (Provided caring listening presence and support.) Response AppreciativeUnChildren's Hospital [facility]10-14-2025 NoteError [facility]10-14-2025 NoteAirway Date/Time: 05/27/2025 9:23 AM Reason: elective General Information and Staff Patient location during procedure: OR Anesthesiologist: Tushar Hoover MD Resident/CEO & CO FOUNDER/CHERISE: Roque Moser MD Performed: resident/CEO & CO FOUNDER/CHERISE Patient Condition Indications for airway management: anesthesia [...] approach: 1 Number of other approaches attempted: 0UnChildren's Hospital of [facility] 05-27-2025 NoteArterial Line: Date/Time: 05/27/2025 8:50 AM [...] one attempt on left wrist. Staffing Performed: resident/CEO & CO FOUNDER/CAA and anesthesiologist Anesthesiologist: Tushar Hoover MD Resident/CEO & CO FOUNDER: Johan Gill MD Other anesthesia staff: Roque Moser MD Performed by: Johan Gill MD Authorized by: Tushar Hoover MDOhioHealth [facility] Hospital10-14-2025 Note Pt in pre-op bay 09. Pt displays understanding of instructions to remove all clothing and personal items. Pt informed anesthesia and physician will be at the bedside to discuss procedure prior to going back at scheduled procedure time. All questions answered at this time.[facility] 05-27-2025 NotePatient: Harjit Asencio Procedure Information Date/Time: 05/27/25 4143 Procedure: Transcatheter tricupsid valve repair - this is for Triclip, with diagnosis of severe tricuspid regurgitation Location: [facility] / [facility] (Cath) Providers: Rafael Vega [...] discussed with attending and resident. Additional Equipment RequestsOhioHealth Berger Hospital10-06-2025 Note [place] [facility] Subjective Harjit Asencio is a [...] removed. Patient would like to go to [facility] for cardiac rehab. 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 The plan was to add Jardiance. There is note of her to being evaluated by CT surgery Dr. Sorto regarding candidacy for cardiac surgery and she was deemed high risk. She was also evaluated at [facility] cardiothoracic [facility]. Initial workup for her [...] mmHg. She then und (more content not included)...[facility] 05-14-2025 History of Present illness Narrative* [...] sx to monitor for. 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 Take cuwu-zzc-emnomxn and prescription medicines only as told by [...] other people, if p (more content not included)...[facility]09-11-2025 NoteProgress Note - Pharmacy Patient's stool [...] verbalized understanding and all other questions were answered.[facility]09-11-2025 NoteI sent you a letter via email. Let me know if you were able to print/send. Thanks![facility]09-08-2025 History of Present illness Narrative* Hannah [...] Flowsheet Row Patient Outreach from 04/21/2025 in [facility] with Loida Nathan LPN Hospital Information ED, Hospital or [facility] Facility Discharge? 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 Encouraged follow up with specialists as discussed Follow up if symptoms worsen or fail to improve. documented in this [facility]09-06-2025 Telephone encounter Note* Telephone Encounter - Acacia Davisson - 04/19/2025 7:12 PM EDT Per Hannah Brian MD Just talked to him. Thank you! [facility] HospitalUqgevmzndc07-45-0867 Miscellaneous Notes* Telephone Encounter - Acacia Erick - 04/19/2025 7:12 PM EDT Per Hannah Brian MD Just talked to him. Thank you! * Telephone Encounter - Acacia Suarez - 04/19/2025 2:52 PM EDT Harjit Asencio is a 75 y.o. female . [facility] ER called because pt came in today with abdominal pain and diarrhea. DR Jayson Calloway is requesting consult with Dr Brian. Please call [phone] . documented in this [facility]09-06-2025 NoteED Patient Education Note Gastroenterology Abdominal Pain, [...] these instructions at home: Medicines ??? Take ugtg-cuk-dielxcq and prescription medicines only as told by [...] provider. Document Revised: 05/17/2023 Document Reviewed: 05/17/2023 [employer]Watson Brown Patient Education ? 2023 [employer] 04-19-2025 Telephone encounter Note* Telephone Encounter - Acacia Suarez - 04/19/2025 2:52 PM EDT Harjit Asencio is a 75 y.o. female . [facility] called because pt came in today with abdominal pain and diarrhea. DR Jayson Calloway is requesting consult with Dr Brian. Please call [phone] . 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 She [...] At her recent visit with cardiology at [facility] on 09/26/2023 valsartan was stopped and low-dose lisinopril 5 mg once daily was added. The plan was to add Jardiance. There is note of her to being evaluated by CT surgery Dr. Sorto regarding candidacy for cardiac surgery and she was deemed high risk. She was also evaluated at [facility] cardi[facility]acic [facility]. Initial workup for her mitral valve disease was started. Spironolactone was changed to half tablet twice a day instead of 1 tablet once a day. She was also recommended to start taking digoxin at night instead of the morning. At visit with va on 10/16/2023 I increased her carvedilol to 6.25 mg twice daily. I asked for a cardiopulmonary excise test. After visit with va on 10/30/2023 I added Jardiance 10 mg daily to optimize GDMT for systolic heart failure. I also started her on amiodarone to attempt rhythm control. Following that she stopped both medications due to side effects. After visit with va on 12/01/2023 I referred her to [facility] [...] Eliquis. She has under (more content not included)...[facility] 02-10-2025 NoteUT Cardiology - [facility] Subjective Harjit Asencio is a 74 y.o. year old female patient being seen for 30 day s/p MitraClip. Had echo 02/07/2025. C/o hematuria. 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 The plan was to add Jardiance. There is note of her to being evaluated by CT surgery Dr. Sorto regarding candidacy for cardiac surgery and she was deemed high risk. She was also evaluated at [facility] cardioth[facility]acic [facility]. Initial workup for her mitral valve disease was started. Spironolactone was changed to half tablet twice a day instead of 1 tablet once a day. She was also recommended to start taking digoxin at night instead of the morning. At visit with va on 10/16/2023 I increased her carvedilol to [...] arm, Patient Position: S (more content not included)...[facility]06-12-2025 NotePatient is here today for a follow up S/P mitral clip. Patient state she is doing good, she feels like she is getting blood to her body. Patient denies any cardiac symptoms at this time. Patient would like to talk about the Eliquis due to having blood in urine, its making here feel like she has a UTI. 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 No changes in meds at this time Encouraged continued follow up with specialists Follow up if symptoms worsen or fail to improve. documented in this encounterPike County Memorial HospitalWwvfsqxpol51-56-7971 NotePatient: Harjit Asencio Procedure Summary Date: 01/14/25 Room / Location: [facility] / [facility] (Cath) Anesthesia Start: 830 [...] were no known notable events for this encounter.[facility]06-03-2025 NotePatient intubated under observation by anesthesia [facility]06-03-2025 NotePatient: Harjit Asencio Procedure Information Anesthesia Start Date/Time: 01/14/25 0831 Procedure: Transcatheter mitral valve repair - case for general anesthesia approved by Dr Callejas NPCR Location: [facility] / [facility] (Cath) Providers: Rafael Vega [...] discussed with attending and resident. Additional Equipment RequestsUnChildren's Hospital of [facility]06-03-2025 Note Arterial Line: Date/Time: 01/14/2025 9:04 AM [...] no complications. Additional notes: [place] Staffing Performed: resident/CEO & CO FOUNDER/CAA Anesthesiologist: Lobo Machado MD Resident/CEO & CO FOUNDER: Margaret Briceno MD Performed by: Micheline Mendoza MD Authorized by: Lobo Machado MDOhioHealth [facility] Hospital06-03-2025 NoteAirway Date/Time: 01/14/2025 8:52 AM Urgency: elective Airway not difficult General Information and Staff Patient location during procedure: OR Anesthesiologist: Lobo Machado MD Resident/CEO & CO FOUNDER/CAA: Margaret Briceno MD Performed: resident/CEO & CO FOUNDER/CAA Indications and Patient Condition Indications for airway [...] approach: 1 Number of other approaches attempted: 0[facility] 01-13-2025 Telephone encounter Note* Telephone Encounter - Rickie Aviles NP - 01/13/2025 11:14 AM EDT Rx sent, HR OOO. OARRS appropriate. [facility] [id number] Miscellaneous Notes* Telephone Encounter - Rickie Aviles NP - 01/13/2025 11:14 AM EDT Rx sent, HR OOO. OARRS appropriate. * Telephone Encounter - Ziggy Juarez MA - 01/13/2025 11:06 AM EDT HR OOO * Telephone Encounter - Alisha Wilson - 01/13/2025 10:39 AM EDT Pt needs refill on Lorazapam sent to [facility]. documented in this encounterPike County Memorial HospitalBnvwalxstf24-08-1979 Telephone encounter Note* Telephone Encounter - Ziggy Juarez MA - 01/13/2025 11:06 AM EDT HR OOO [facility] HospitalMuyllrbxde05-38-2354 Telephone encounter Note* Telephone Encounter - Alisha Wilson - 01/13/2025 10:39 AM EDT Pt needs refill on Lorazapam sent to [facility]. [facility] HospitalMerspxzshh26-94-8249 History of Present illness Narrative* Hannah Brian [...] No change in regimen. documented in this encounterPike County Memorial HospitalDduzdmpkqn67-94-0241 NoteI have reviewed this patient's medical record, cardiac imaging. she has severe secondary (functional) mitral regurgitation, chronic heart failure with reduced ejection fraction and has persistent symptoms NYHA class III despite maximally tolerated guideline-directed medical therapy. I think that she is a good candidate for and would benefit from transcatheter fjzj-my-gkfl repair. [facility]05-12-2025 NoteUT Cardiology - [facility] Subjective Harjit Asencio is a [...] At her recent visit with cardiology at [facility] on 09/26/2023 valsartan was stopped and low-dose lisinopril 5 mg once daily was added. The plan was to add Jardiance. There is note of her to being evaluated by CT surgery Dr. Sorto regarding candidacy for cardiac surgery and she was deemed high risk. She was also evaluated at [facility] cardioth[facility]acic [facility]. Initial workup for her mitral valve disease was started. Spironolactone was changed to half tablet twice a day instead of 1 tablet once a day. She was also recommended to start taking digoxin at night instead of the morning. At visit with va on 10/16/2023 I increased her carvedilol to 6.25 mg twice daily. I asked for a cardiopulmonary excise test. After visit with va on 10/30/2023 I added Jardiance 10 mg daily to optimize GDMT for systolic heart failure. I also started her on amiodarone to attempt rhythm control. Following that she stopped both medications due to side effects. After visit with va on 12/01/2023 I referred her to [facility] [...] and are negativ (more content not included)... [facility]05-06-2025 History of Present illness Narrative* Hannah [...] sx to monitor for. documented in this encounterPike County Memorial HospitalXspbcublgt01-74-1701 History of Present illness Narrative* Hannah Brian [...] meds and concerning sx to monitor for. 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 No change in regimen. Continue to follow w/ specialists Primary hypertension (CMS/HCC) Stable, continue to monitor. No change in regimen. 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 No change in regimen. Continue to follow w/ cardiology Primary hypertension (CMS/HCC) Stable, continue to monitor. No change in regimen. Continue to follow w/ cardiology documented in this encounterPike County Memorial HospitalGrorevpmpn73-17-8139 NoteUT Electrophysiology Consult Note [place] [facility] Reason for visit: Afib+ CMP 10/22/24 Patient underwent a MANAGER SKILLED-P implant on 02/28/2024 when a MANAGER SKILLED-P was placed in a submuscular fashion with [...] she has done very well since her MANAGER SKILLED. Device check performed on 07/30/2024 shows patient being BiV paced 98% of the time 02/22/24 Pt here to discuss about MANAGER SKILLED-P Prior HPI: Harjit Asencio is a 74 [...] MR and subsequently had a visit with [facility] where evaluation was being done for surgical correction of mitral valve but was noted to have high risk and hence deferred. She also had an evaluation for the same at [place] surgery and thereafter had seen in [...] Tobacco Use: Medium Risk (10/08/2024) [facility] Patient History Smoking Tobacco Use: Former Smokeless Tobacco Use: Never Passive Exposure: Never Alcohol Use: Not At Risk (08/05/2024) Re[facility] from [facility] AUDIT-C Frequency of Alcohol Consumption: Never Average Number of Drinks: Patient does not drink Frequency of Binge Drinking: Never Financial Resource Strain: Not on file Food Insecurity: Not on file Transportation Needs: Not on file Physical Activity: Not on file Stress: Not on file Social Connections: Not on file Intimate Partner Violence: Unknown (10/05/2023) [place] Safety & Environment Fear of Current or Ex-Partner: Not on file Emotionally Abused: Not on file Physically Abused: Not on file Sexually Abused: Not on file Physically or Sexually Abused: Not on file Depression: Not at risk (08/05/2024) [facility] PHQ-2 Patient Health Questionnaire-2 Score: 0 [...] tablet 3 LORazepam (Ativan) (more content not included)...[facility]02-25-2025 History of Present illness Narrative* JOSE [...] carvedilol dosage, which was prescribed by her labor specialist. She has been experiencing shortness of breath, [...] and plans to discuss this with her labor specialist during her upcoming appointment. She has been [...] and plans to discuss this with her labor specialist during her upcoming appointment. She has been [...] and plans to discuss this with her labor specialist during her upcoming appointment. She has been [...] dosage of carvedilol was increased by her labor specialist. Symptoms include shortness of breath, irregular heart rhythm, and night terrors. Her blood pressure is currently stable. She is advised to discuss these symptoms with her labor specialist during her upcoming appointment next month. 2. [...] display for this patient. documented in this [facility]02-07-2025 Telephone encounter Note* Telephone Encounter - Erik Byrnes - 09/20/2024 3:06 PM EST Pt needs a refill on Ativan Please send to [facility] [id number] Miscellaneous Notes* Telephone Encounter - Erik Byrnes - 09/20/2024 3:06 PM EST Pt needs a refill on Ativan Please send to [facility] documented in this [facility]12-30-2024 History of Present illness Narrative* Rickie Aviles [...] Negative - 160(16) ++++ mg/dL Negative Specific [place], UA 1 - 1.03 1.005 Blood, UA [...] sub stitutions have occurred. documented in this encounterPike County Memorial HospitalCsznlbmdyd95-27-9283 History of Present illness Narrative* Mratita Newsome MA - 08/05/2024 2:45 PM EST Images from the original note were not included. Stephan Boo, DO Obstetrics and Gynecology Harjit Asencio 1950 08/05/24 [id number] Yearly Wellness Exam Chief Complaint Patient presents with Gynecologic Exam Medicare off year. LMP: MIR BS 1983 HRT: None Last pap 07-24-23 neg. Last mammogram 12-05-22 [facility]. 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 FEMALE GENITOURINARY: instructional materials director in room - atrophic hormone - cuff [...] Date 08/05/24 Time 5:00PM. documented in this encounterPike County Memorial HospitalNnlhtywvse74-91-0618 NotePatient here for follow up AV node ablation with Dr. Yao on 06/10/2024. Says she has chest pain and says it's heartburn . Review of Systems Constitutional: Positive for malaise/fatigue. Cardiovascular: Positive for chest pain ( heartburn ) and dyspnea on exertion (intermittent). Hematologic/Lymphatic: Bruises/bleeds easily. Gastrointestinal: Positive for heartburn. Psychiatric/Behavioral: The patient is nervous/anxious. All other systems reviewed and are negative.[facility] 07-02-2024 NoteCardiovascular Medicine 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 (more content not included)... [facility]11-18-2024 History of Present illness Narrative* JOSE [...] eat. She has an appointment with a residential air sealing technician tomorrow. She has been taking spironolactone, [...] research. She will follow up with the residential air sealing technician and nurse practitioner tomorrow to check [...] display for this patient. documented in this encounterPike County Memorial HospitalNmiqrsbmlm82-13-4103 NoteSt. [facility] History of Present illness Narrative* Raphael Goldsmith [...] for Female Urology and Reconstructive Pelvic Surgery/[facility]rology [facility] Bulmaro aleman Krista documented in this encounterOhiohealth O'[facility]len[facility]11-14-2024 Nurse Note* Clarice Gardiner MA - 06/27/2024 [...] patient verbalizes understanding: yes Clarice Gardiner MA [facility]11-14-2024 Instructions* Patient Instructions* Clarice Gardiner MA - 06/27/2024 10:59 AM EST [facility] DR. RAPHAEL GOLDSMITH AFTER YOUR [...] office: Dr. Raphael Goldsmith M.D., Office PH#: [phone] After 5 pm and on weekends: Call [phone] and ask for the urologist crown ironer. The doctor will need to know that you have hada cystoscopy and what symptoms you are having. documented in this encounterOhiohealth O'[facility]len[facility]11-14-2024 Nurse Note* Clarice Gardiner MA - 06/27/2024 [...] Please call the [facility] office at [phone], Monday-Monday, 8 am - 5 pm, with anyquestions you may have. Please ask to be transferred to the Urology nurses in the back office area. If you call after 5 PM or on the weekends, please call [phone], ask for the Urologist crown ironer. Thank You, Your Urology Team documented in this encounterOhiohealth O'[facility]leness Hospital11-14-2024 Nurse Note* Ashley Quiros MA - 06/27/2024 [...] Please call the [facility] office at [phone], Monday-Monday, 8 am - 5 pm, with anyquestions you may have. Please ask to be transferred to the Urology nurses in the back office area. If you call after 5 PM or on the weekends, please call [phone], ask for the Urologist crown ironer. Thank You, Your Urology Team [facility]10-28-2024 NoteAV NODE ABLATION PROCEDURE REPORT DATE OF [...] MR and subsequently had a visit with [facility] where evaluation was being done for surgical correction of mitral valve but was noted to have high risk and hence deferred. She also had an evaluation for the same at [place] surgery and thereafter had seen in [...] poor candidate for Afib ablation, she underwent MANAGER SKILLED-P on 02/28/24. She is here for AVN [...] 3. Continue anticoagulation. Patty Yao MD Cardiac Electrophysiology.[facility]10-28-2024 Note Patient: Harjit Asencio Procedure Information Date/Time: 06/10/24 1200 Procedure: AV node ablation - PC APPROVED Location: [facility] [employer]URIT[facility] VAULT 1 EP / [facility] (Cath) Providers: Patty Yao MD Clinical information reviewed: Allergies Meds OB Status Physical Exam Airway Mallampati: II TM distance: >3 FB Cardiovascular Dental Pulmonary Abdominal Anesthesia Plan ASA 3 CSE Anesthetic plan and risks discussed with patient. Use of blood products discussed with patient who. Additional Equipment RequestsOhio[facility]09-24-[address] [facility]24[facility] History of Present illness Narrative* Raphael Goldsmith MD - 05/07/2024 1:35 PM EDT [facility] ESTABLISHED UROLOGY VISIT CENTER FOR [...] repeat urethral dilation in 2-3 months at [place] in office -Plan to assess for atrophic vaginitis at time of urethral dilation due to patient concern for irritation around upper thigh/vagina Erika Ho MD I have personally performed a face to face diagnostic evaluation on this patient. My findings are as above. Raphael Goldsmith MD plan urethral dil per req documented in this encounterOhiohealth O'[facility]09-24-2024 Nurse Note* Nila Uriarte OCCA - 05/07/2024 1:19 PM EDT Post Void Residual done on patient with 0 cc residual volume remaining. notified. CARISSA Garvey [facility]09-24-2024 Nurse Note* Nila Uriarte OCCA - 05/07/2024 1:19 PM EDT Post Void Residual done on patient with 0 cc residual volume remaining. notified. CARISSA Garvey documented in this encounterOhiohealth O'[facility]len[facility]05-10-2024 Telephone encounter Note * Telephone Encounter - [...] every day Authorizing Provider: Benitez SAMUELS APRN.CNP [facility]05-10-2024 Miscellaneous Notes* Telephone Encounter - Benitez Samuels [...] mouth every day Authorizing Provider: Benitez SAMUELS APRN.PUNCH OPERATOR documented in this encounterOhiohealth O'Bleness Hospital04-10-2024 Hospital Discharge instructions Patient Education 11/22/2023 20:40:30 Constipation, Adult, Zvzn-hb-Nvfk Constipation, Adult Constipation is when a person [...] high in fat and sugar, such as: ?Anguillan fries. ?Hamburgers. ?Cookies. ?Candy. ?Soda. Drink enough fluid to keep your pee (urine) pale yellow. General instructions Exercise regularly or as told by your doctor. Try to do 150 minutes of exercise each week. Go to the restroom when you feel like you need to poop. Do not hold it in. Take rbkl-srl-yhxmgfs and prescription medicines only as told by [...] keep your pee (urine) pale yellow. Take iwxr-hhe-pkmitui and prescription medicines only as told by your doctor. These include any fiber supplements. This information is not intended to replace advice given to you by your health care provider. Make sure you discuss any questions you have with your health care provider. Document Revised: 06/17/2020 Document Reviewed: 06/17/2020 HumanAPI Patient Education 2022 [employer]. Follow Up Care 11/22/2023 16:18:30 With:Snehal MCMAHON, Hannah De Leon Address: [place] [address]- When:11/25/2023 [facility]03-04-2024 Miscellaneous Notes* Telephone Encounter - Gloria Mendes - 10/16/2023 3:54 PM EST October 16, 2023 Patient Contact Number: [phone] Patient last seen within the last year: [...] days. Yes Gloria Mendes documented in this encounterOhiohealth O'Bleness Hospital03-04-2024 [facility] History of Present illness Narrative* Lia Ramirez [...] EMERGENT procedures): No specimen collected. Lia DAWSON Raimrez * Raphael Goldsmith MD - 10/16/2023 8:25 AM EST 73 year old with prior history of urinary symptoms. Incomplete emptying, intermittency, straining. Had urethral dilation elsewhere which helped. Wished to have another performed due to it helping [facility] / UNIVERSAL PROTOCOL / SAFETY [...] 2023 Time: 11:18 AM documented in this encounterOhiohealth O'Bleness Hospital03-04-2024 Note[facility] Nurse Note* Lia Ramirez CT - 10/16/2023 7:35 AM EST Actual procedure/procedure scheduled: Yes Performing provider/scheduled provider: Yes Patient was roomed in: Q9- 07 Bounty Hunter offered:Patient declines Patient arrived in the room [...] Education Session: None Instruction Provided To: Patient Photostat Operator Present: no Discipline: Nursing Learning Topic: SURVIVAL SKILLS: Symptom Management Patient Evaluation: Verbalizes understanding: Yes Supplemental Material Given: Written Material Instructed By DAWSON Farr In Department Urology . documented in this encounterOhiohealth O'Bleness [facility]02-22-2024 Hospital Discharge instructions Patient Education 10/05/2023 21:56:35 Constipation, Adult, Mdxj-if-Arzp Constipation, Adult Constipation is when a person [...] high in fat and sugar, such as: ?Anguillan fries. ?Hamburgers. ?Cookies. ?Candy. ?Soda. Drink enough fluid to keep your pee (urine) pale yellow. General instructions Exercise regularly or as told by your doctor. Try to do 150 minutes of exercise each week. Go to the restroom when you feel like you need to poop. Do not hold it in. Take ggwb-rdv-netoequ and prescription medicines only as told by [...] keep your pee (urine) pale yellow. Take akgp-tks-brfghfy and prescription medicines only as told by your doctor. These include any fiber supplements. This information is not intended to replace advice given to you by your health care provider. Make sure you discuss any questions you have with your health care provider. Document Revised: 06/17/2020 Document Reviewed: 06/17/2020 HumanAPI Patient Education 2022 [employer]. 10/05/2023 21:56:35 Gastroesophageal Reflux Disease, Adult, Bufd-vo-Crcr Gastroesophageal Reflux Disease, Adult Gastroesophageal reflux (ZUNILDA) [...] acidic foods. These include peppers, chili powder, mea powder, vinegar, hot sauces, and BBQ sauce. ?Haines fruit juices and citrus fruits, such as oranges, ronald, and limes. ?Tomato-based foods. These include red sauce, chili, salsa, and pizza with red sauce. ?Fried and fatty foods. These include donuts, emirati fries, potato chips, and high-fat dressings. ?High-fat [...] to any changes in your symptoms. Take shmh-jjo-wtrtqvm and prescription medicines only as told by [...] provider. Document Revised: 02/08/2021 Document Reviewed: 02/08/2021 HumanAPI Patient Education 2022 [employer]. 10/05/2023 21:56:35 Abdominal Pain, Adult, Pdpk-ms-Fpqg Abdominal Pain, Adult Many things can cause belly (abdominal) pain. Most times, belly pain is not dangerous. Many cases of belly pain can be watched and treated at home. Sometimes, though, belly pain is serious. Your doctor will try to find the cause of your belly pain. Follow these instructions at home: Medicines Take vveh-frb-pzwvarq and prescription medicines only as told by [...] your belly pain for any changes. Take woko-zvy-mntjiwf and prescription medicines only as told by [...] provider. Document Revised: 12/09/2019 Document Reviewed: 12/09/2019 HumanAPI Patient Education 2022 [employer]. Follow Up Care 10/05/2023 17:56:41 With:Johan HENRIQUEZ Address: [address] [place] [phone] Business (1) When:10/08/2023 20:57:11 With:Peggy Nazario Address: [address] [facility] [place] [address]- Business (1) When:Within 3 Day(s) [facility]02-22-2024 Evaluation + Plan noteExtracted from: Title:ED [...] day(s), # 28 tab(s), Refills(s) 0, Pharmacy: [facility], 165, cm, 10/05/23 18:07:00 EST, Height/Length Dosing, 50.3, kg, 10/05/23 18:07:00 EST, Weight Dosing lidocaine topical, 200 mg, 10 mL, Soln-Oral, Oral, Once, Stop date 10/05/23 20:48:00 EST, STAT, Start date 10/05/23 20:48:00 EST ECG 12 Lead Adult Future Appointments Appointment Date:01/24/2024 02:30:00 PM Scheduled Provider:Micheline BROOKS MD Location:[facility] Appointment Type:URO Office Visit Future Scheduled Tests Laboratory* Basic Metabolic Panel 07/12/23 * Digoxin Level 07/12/23 [facility]02-19-2024 Miscellaneous Notes* Telephone Encounter - Gloria Mendes - 10/02/2023 9:35 AM EST October 02, 2023 Patient Contact Number: [phone] Patient last seen within the last year: Yes Date of last office visit: 09/26/2023 Reason For Call: Test Results; pt requesting to go over 09/26 labs Physician: Alea Harley MD Patient was informed that non-urgent calls may be returned within the next three business days. Yes Gloria Mendes documented in this encounterOhiohealth O'Bleness Hospital02-13-2024 Nurse Note* Chrissy Roberts OCCA - 09/26/2023 2:28 PM EST Post Void Residual done on patient with 45 cc residual volume remaining. MD notified. CARISSA Ferrell documented in this encounterOhiohealth O'Bleness Hospital02-13-2024 [facility] History of Present illness Narrative* Raphael Goldsmith MD - 09/26/2023 2:15 PM EST [facility] NEW UROLOGY VISIT CENTER FOR [...] Medicine and Reconstructive Surgery documented in this encounterOhiohealth O'Bleness Hospital02-13-2024 Instructions* Patient Instructions* Ana Rivas APRN.CNP [...] with labs and EKG documented in this encounterOhiohealth O'Bleness Hospital02-13-2024 NoteSt[facility] History of Present illness Narrative* Ana Rivas OVERNIGHT BABYSITTER.PUNCH OPERATOR - 09/26/2023 8:51 AM EST Images from the original note were not included. [facility] Department of Cardiovascular Medicine SECTION OF CLINICAL CARDIOLOGY OUTPATIENT VISIT DATE September 26, 2023 OUTPATIENT VISIT TYPE ESTABLISHED PRIMARY CARE PHYSICIAN: Peggy Nazario MD [address] [place] [address] REFERRING PHYSICIAN: Dr. Alae Harley [address] [facility] [address] CHIEF COMPLAINT: Established Patient HISTORY OF PRESENT [...] ECG Confirmed by fellow NANCY MCMAHON, ZIGGY ([id number]) on 09/04/2023 1:50:09 PM Confirmed by MD DEJUAN, PhD, KHUSHI ([id number]) on 09/11/2023 1:23:[address] Result Conclusion CTA CHEST (GATED) W IVCON Exam End: 08/23/2023 7:47 AM (Final result) Impression: IMPRESSION: Dilated left ventricle, biatrial enlargement. Mitral valve is noncalcified. Normal caliber thoracic aorta. Liquor Tester: LILIANA Transcribe Date/Time: Aug 23 2023 11:20A [...] a plan of care. documented in this encounterOhiohealth O'Bleness Hospital02-08-2024 Miscellaneous Notes* Telephone Encounter - Carmina Reyna RN - 09/21/2023 4:[address] Harley would like patient to come in and be seen to go over this in greater detail. Work on setting her up with an WAFER FAB TECHNICIAN and Dr. Harley would like to be in for the appointment. Next Monday. Carmina Reyna RN * Telephone Encounter - Gloria Mendes - 09/21/2023 3:33 PM EST September 21, 2023 Patient Contact Number: [phone] Patient last seen within the last year: Yes Date of last office visit: 08/23/2023 Reason For Call: Medication Issue/Question: Pt calling to follow up on recent ER visit (notes available in Care Everywhere) where it was found that she is allergic to Valsartan; would like to know what is safe for her to take and if anything would interfere with digoxin Rx Physician: Aela Harley MD Patient was informed that non-urgent calls may be returned within the next three business days. Yes Gloria Mendes documented in this encounterOhiohealth O'Bleness Hospital02-05-2024 History of Present illness Narrative* Farrukh [...] Flowsheet Row Patient Outreach from 09/18/2023 in [facility] with Loida Nathan LPN Discharge Information ED or Hospital Discharge? ED Patient has been contacted within 1 week of being seen in the ED Yes Discharge Date 09/17/23 Discharge [facility] [DX: ACid reflux, Medication reaction] Discharged [...] for ER follow up. Pt seen at [facility] ER on 09/17/23 due to dizziness and shaking. Hospitalrecords were reviewed. Pt had an elevated BP. She believes the dizziness and shaking was caused by the valsartan. She had the same issues when she was on it before, was advised to cut it in half. Shestates she has been feeling better since she stopped it. Pt would like a referral to a new labor specialist/surgeon. She states she has been told that [...] be referred to a cardiothoracic surgeon at [facility]. Discussed some risks of surgery. - Ambulatory referral to Cardiothoracic Surgery; Future Entered by _El_, acting as scribe for Dr. Lr_. Signature _Heath MCMAHON_ Date _09/18/2023_. The documentation recorded by the scribe accurately reflects the service(s) I personally performed and the decisions I made. documented in this encounterPike County Memorial [id number] Evaluation + Plan note Extracted from:Title:ED NoteAuthor:Armen [...] Date:01/24/2024 02:30:00 PM Scheduled Provider:Micheline BROOKS MD Location:[facility] Appointment Type:URO Office Visit Future Scheduled Tests Laboratory* Basic Metabolic Panel 07/12/23 * Digoxin Level 07/12/23 [facility]02-04-2024 Hospital Discharge instructions Patient Education 09/17/2023 [...] medicines that you are allergic to. Take sats-uoy-ibijihs and prescription medicines only as told by your health care provider. If you were given medicines to treat your allergic reaction, do not drive until your health care provider tells you it is safe. If you have hives or a rash: ?Use an qadl-bfk-qmwazfy antihistamine as told by your health care [...] provider. Document Revised: 01/10/2022 Document Reviewed: 01/10/2022 HumanAPI Patient Education 2022 [employer]. 09/17/2023 06:16:25 Heartburn Heartburn Heartburn is a [...] powder, vinegar, hot sauces, and barbecue sauce. ?Haines fruit juices and citrus fruits, such as oranges, ronald, and limes. ?Tomato-based foods, such as red sauce, chili, salsa, and pizza with red sauce. ?Fried and fatty foods, such as donuts, emirati fries, potato chips, and high-fat dressings. ?High-fat [...] ask your health care provider. Medicines Take sblo-ays-zqdrmkx and prescription medicines only as told by [...] told by your health care provider. Take jjrp-laf-ixjvkrt and prescription medicines only as told by [...] provider. Document Revised: 02/03/2021 Document Reviewed: 02/03/2021 HumanAPI Patient Education 2022 [employer]. Follow Up Care 09/17/2023 04:56:21 With:Peggy Nazario Address: [address] [place], [place] [id number] [facility] (1) When:Within 3 Day(s) [facility]02-04-2024 Miscellaneous Notes* Telephone Encounter - Carmina [...] (valsartan) again. Carmina Mcmahan APRN.CNP [facility] [employer]ation Professional 09/17/2023 6:29 AM documented in this encounterOhiohealth O'Bleness [facility]02-04-2024 Miscellaneous Notes* Telephone Encounter - Carmina Mcmahan APRN.CNP - 09/17/2023 4:21 AM EST [facility] Contact Center Inbound Phone Encounter DATE of SERVICE: 09/17/2023 TIME of SERVICE: 4:21 AM Status: Urgent Service/Provider: Clinical Cardiology Alea Harley MD Reason for call: Medication Issue/Question Contact information: [phone] Resolution: Reinforced education and Sent to [facility] Comments: Patient calling after waking up with [...] to try. Carmina Mcmahan APRN.CNP [facility] Medical Donation Professional Date of Resolution: 09/17/2023 Time of Resolution 4:21 AM documented in this encounterOhiohealth O'Bleness [facility]02-02-2024 Telephone encounter Note * Telephone Encounter - Rupal Lemus - 09/15/2023 1:24 PM EST Pt calls to check status of this, wants this done as quickly as possible, states that she will haveto cut pills in half to make it through the weekend and missed one last night. [facility] [id number] Miscellaneous Notes* Telephone Encounter - Rupal Lemus [...] out completely on monday documented in this encounterNOSaint John's Health SystemJdljyshgaz40-15-4925 Telephone encounter Note* Telephone Encounter - Candis Amaro - 09/15/2023 9:49 AM EST Pt calls to ask if [facility] be [facility] Monday [facility] [id number] Telephone encounter Note* Telephone Encounter - Candis Amaro - 09/13/2023 11:25 AM EST Pt said she [facility] [id number] Telephone encounter Note* Telephone Encounter - Farrukh Mcmahan MA - 09/13/2023 11:06 AM EST Rx signed yesterday [facility] [id number] Telephone encounter Note* Telephone Encounter - Candis Amaro - 09/13/2023 11:01 AM EST Pt calls for refill of lorazepam is almost out will be out completely on monday [facility] CenterFtkaqlqunl61-85-3830 Evaluation + Plan noteExtracted from:Title:ED Note Author:Parveen [...] Date:01/24/2024 02:30:00 PM Scheduled Provider:Micheline BROOKS MD Location:[facility] Appointment Type:URO Office Visit Future Scheduled Tests Laboratory* Basic Metabolic Panel 07/12/23 * Digoxin Level 07/12/23 [facility]01-30-2024 Hospital Discharge instructions Patient Education 09/12/2023 [...] as meditation or yoga. General instructions Take xjmc-ois-kpdmdsk and prescription medicines only as told by [...] provider. Document Revised: 05/20/2022 Document Reviewed: 05/20/2022 HumanAPI Patient Education 2022 [employer]. 09/12/2023 06:47:40 Gastroesophageal Reflux Disease, Adult Gastroesophageal Reflux Disease, Adult Gastroesophageal reflux (ZUNILDA) happens when acid from the stomach flows up into the tube that connects the mouth and the stomach (esophagus). Normally, food travels down the esophagus and stays in thestomach to be digested. However, when a person has ZNUILDA, food and stomach acid sometimes move back [...] powder, vinegar, hot sauces, and barbecue sauce. ?Haines fruit juices and citrus fruits, such as oranges, ronald, and limes. ?Tomato-based foods, such as red sauce, chili, salsa, and pizza with red sauce. ?Fried and fatty foods, such as donuts, emirati fries, potato chips, and high-fat dressings. ?High-fat [...] to any changes in your symptoms. Take vmbo-rlh-zicethx and prescription medicines only as told by [...] you have new or worsening symptoms. Take bupv-mal-jzrrqfk and prescription medicines only as told by [...] provider. Document Revised: 02/08/2021 Document Reviewed: 02/08/2021 HumanAPI Patient Education 2022 [employer]. Follow Up Care 09/12/2023 04:04:55 With:Peggy Nazario Address: [address] [place] [id number] Business (1) When:Within 3 Day(s) [facility]01-18-2024 [facility]01[facility]-20[facility] Note[facility] 08-30-2023 [facility]St[facility]01[facility]-20[facility] Note[facility]01-[facility]-20[facility] Note[facility]01-[facility]-20[facility] NoteSt[facility]01[facility] Note[facility] [facility]01-15-20[facility] Note[facility]01-[facility]-20[facility] Note[facility]01-[facility] Note[facility] 08-27-2023 NoteSt[facility]01[facility]-20[facility] NoteSt[facility]01[facility] Note[facility]01[facility] History of Past illness Narrative* ProblemNoted DateDiagnosed DateResolved DateAcute on chronic systolic congestive heart ezjrxtt81ocumented as of this encounter (statuses as of 09/17/2023) [facility] History of Past illness Narrative* ProblemNoted Date Diagnosed DateResolved DateAcute on chronic systolic congestive heart failure 4documented as of this encounter (statuses as of 09/21/2023) [address]13-2024 History of Past illness Narrative* ProblemNoted Date Diagnosed DateResolved DateAcute on chronic systolic congestive heart failure ocumented as of this encounter (statuses as of 09/26/2023) [address]13-2024 History of Past illness Narrative* ProblemNoted Date Diagnosed DateResolved DateAcute on chronic systolic congestive heart failure 4documented as of this encounter (statuses as of 09/26/2023) [facility] History of Past illness Narrative* ProblemNoted Date Diagnosed DateResolved DateAcute on chronic systolic congestive heart failure ocumented as of this encounter (statuses as of 09/29/2023) [address]13-2024 History of Past illness Narrative* ProblemNoted Date Diagnosed DateResolved DateAcute on chronic systolic congestive heart failure 4documented as of this encounter (statuses as of 10/02/2023) [address]13-2024 History of Past illness Narrative* ProblemNoted Date Diagnosed DateResolved DateAcute on chronic systolic congestive heart failure 4documented as of this encounter (statuses as of 10/16/2023) [address]13-[address]24 History of Past illness Narrative* ProblemNoted Date Diagnosed DateResolved DateAcute on chronic systolic congestive heart failure 4documented as of this encounter (statuses as of 10/17/2023) [address]13-2024 History of Past illness Narrative* ProblemNoted Date Diagnosed DateResolved DateAcute on chronic systolic congestive heart failure 4documented as of this encounter (statuses as of 10/20/2023) [facility]01-13-2024 NoteHNO ID: [id number] Author: NOTE, INTERFACE, ? Service: ? Author Type: ? Type: Progress Notes Filed: 08/26/2023 02:15 Note Text: Epic Scheduled Downtime: 08/26/2023 1:00:00 AM to 08/26/2023 2:04:[address] [facility]01-11-2024 [facility]01-10-20[facility]01-10-20[facility] NoteSt[facility]12[facility]-2023 NoteProcedure The risk/benefits of the procedure were [...] Education Routine Capillary Glucose POC Saline Lock InsertMansfield HospitalComment on above:Result Comment: Electronically Signed By: MARTINEZ MCMAHON, Johan Ribeiro.br\Date and Time Signed: 07/05/23 06:48 [id number] History of Present illness Narrative* Farrukh Mcmahan, MA - 08/11/2023 8:45 AM EST Harjit Asencio is a 73 y.o. female presents today to follow up on anxiety. HPI: Pt here today for follow up on anxiety. Pt states yesterday she had a panic attack. She received a bill from [facility] that made her very upset and she had a panic attack. She felt like she couldn't catchher breath the rest of the day. Pt is currently on holter monitor. Pt has instructions from [facility] that she is confused about and [...] Chronic fatigue syndrome Discussed. documented in this encounterPike County Memorial [id number] Miscellaneous Notes* Telephone Encounter - Rebecca Fernandez - 07/24/2023 10:22 AM EST IN * Telephone Encounter - Katie Nicholson - 07/24/2023 10:08 AM EST Please register insurance Thank you! documented in this encounterOhiohealth O'Bleness Hospital12-11-2023 Note [id number] [facility] 07-21-2023 Evaluation + Plan noteExtracted from:Title:Procedure Note Heart & VascularAuthor:Johan HENRIQUEZ MDDate:07/21/23 Ordered: benzocaine/butamben/tetracaine topical, 3 spray(s), Banks-Top, Topical, q2min PRN Other (see comment), Routine, [...] Oxygen Therapy Saline Lock Insert Suctioning HAROON ([facility]) Vital Signs Future Appointments Appointment Date:01/24/2024 02:30:00 PM Scheduled Provider:Micheline BROOKS MD Location:[facility] Appointment Type:URO Office Visit Future Scheduled Tests Laboratory* Basic Metabolic Panel 07/12/23 * Digoxin Level 07/12/23 [facility]12-08-2023 Hospital Discharge instructions Patient Education 07/21/2023 08:44:29 CV - Post-Transesophageal Echocardiogram (Custom) [place], [place] POST-TRANSESOPHAGEAL ECHOCARDIOGRAM AFTER THE PROCEDURE: Diet: [...] appointment Seek Medical Care if: Notify your labor specialist should you have any difficulty swallowing or coughing up blood. In the event you are unable to reach your labor specialist, please call [facility] at [phone] and the gear hobber operator will assist you. Follow Up Care 07/20/2023 11:03:45 With:Johan HENRIQUEZ Address: [address] [place] [phone]- [phone] Business (1) When: Unknown Comments:-After your appointment [...] plan_ Assessment/Plan Ordered: benzocaine/butamben/tetracaine topical, 3 spray(s), Banks-Top, Topical, q2min PRN Other (see comment), Routine, [...] Saline Lock Insert Suctioning HAROON ([facility]) Vital SignsMansfield HospitalComment on above:Result Comment: Electronically Signed By: MARTINEZ MCMAHON, Johan Ribeiro.br\Date and Time Signed: 07/21/23 07:09 [id number] Evaluation + Plan note Future Appointments Appointment Date:07/21/2023 08:00:00 AM Scheduled Provider: Location[facility] Appointment Type:[facility] () Appointment Date:07/21/2023 08:00:00 AM Scheduled Provider: Location:.[facility] Appointment Type:CV Echo () Appointment Date:01/24/2024 02:30:00 PM Scheduled Provider:Micheline BROOKS MD Location:[facility] Appointment Type:URO Office Visit Future Scheduled Tests Laboratory* Basic Metabolic Panel 07/12/23 * Digoxin Level 07/12/23 Radiology* Echo Transesophageal 2D 07/21/23 [facility]11-29-2023 Evaluation + Plan note Future Scheduled Tests Laboratory* Basic Metabolic Panel 07/12/23 * Digoxin Level 07/12/23 [facility] 11-24-2023 Hospital Discharge instructions Patient Education [...] health careprovider. Avoid caffeine, alcohol, and certain lfiw-hxr-uueuzyy cold medicines. These may make you feel worse. Ask your pharmacist which medicines to avoid. General instructions Take mamm-ktt-ovfkjuy and prescription medicines only as told by [...] Depression Association of [place] (ADAA): www.adaa.org National [place] on Mental Illness (TAYLOR): www.taylor.org Contact a [...] department or: Call your local emergency services (105 in the [place] Call a suicide crisis helpline, such as the National Suicide Prevention Lifeline at or 774 in the [place] This is open 24 hours a day in the [place] Text the Crisis Text Line at 802428 (in the [place] Summary Taking steps to [...] provider. Document Revised: 02/23/2022 Document Reviewed: 11/21/2021 [employer] Patient Education 2022 [employer] 07/07/2023 13:04:14 Atrial Fibrillation Atrial Fibrillation [...] electrical signals of the heart. An ambulatory undercutter operator to record your heart's activity for a [...] provider. Document Revised: 01/22/2020 Document Reviewed: 01/22/2020 [employer] Patient Education 2022 [employer]. Follow Up Care 07/07/2023 08:56:48 With:Johan HENRIQUEZ Address: [address] [place] [address]- [phone] Business (1) When:07/10/2023 12:45:48 With:Peggy Nazario Address: [address] [place] [address]- Business (1) When:07/10/2023 12:45:46 [facility]11-24-2023 NoteAdmission and Discharge Information Admitting Physician - Noman PATTON DO Consulting Physician - Shell MCMAHON, Eb Mcmillan. [facility] Cardio, XXXX Admitting Diagnoses: Discharge Diagnoses 1. [...] of breath. She was subsequently admitted to [facility] with acute paroxysmal atrial fibrillation with rapid ventricular response?new onset, acute systolic congestive heart failure, elevated troponin, severe mitral regurgitation and tricuspid regurgitation, mild coronary artery disease. She was seen in consultation by the labor specialist and underwent cardiac catheterization and echo cardiogram. [...] is for patient to follow-up with a labor specialist as well as the urologist as outpatient. She may need valvular repair or replacement after follow-up with the labor specialist and may also require HAROON as per the labor specialist. Discharge time: 35 minutes. I spent 35 [...] 76.7 % Lymph Auto - 15.3 % [place] Auto - 7.7 % Eos Auto - 0.0 % Basophil Auto - 0.3 % Neutro Absolute - 4.7 E9/L Lymph Absolute - 0.9 E9/L [place] Absolute - 0.5 E9/L Eos Absolute - [...] - 79 mg/dL POC Device SN - [id number] POC User ID - [id number] POC Username - NIKHIL PAULSON CBC w/ [...] HDL - 43 mg/dL (more content not included)...[facility]field HospitalComment on above:Result Comment: Electronically Signed By: Nahid SERRATO MD\.br\Date and Time Signed: 07/07/23 12:07 [id number] Evaluation + Plan noteExtracted from:Title:APSO NoteAuthor:Nahid SERRATO MDDate:07/06/23 73-year-old female with history of ureteral stricture with previous dilations, anxiety disorder presented with complaints of urinary hesitancy, constipation, cough and shortness of breath and was admitted to [facility] with acute paroxysmal atrial fibrillation with [...] IV Cardizem drip. Continue on Coreg, digoxin. Black And White Printer Operator debating on starting patient on amiodarone. Eliquis to start in 4 days after cardiac catheterization. Ordered: [facility] Hospital Care/Day Moderate 35 Minutes [id number] 2. Acute systolic congestive heart failure (I50.21: Acute systolic (congestive) heart failure) Acute systolic congestive heart failure present on admission. Seen by labor specialist and underwent cardiac catheterization that showed mild coronary artery disease. Also shows severe mitral regurgitation and tricuspid regurgitation with ejection fraction of 30 to35%. Continue on aspirin, Coreg, losartan and Lasix. Ordered: [facility] Hospital Care/Day Moderate 35 Minutes 85588 3. Severe mitral regurgitation (I34.0: Nonrheumatic mitral (valve) insufficiency) As seen on cardiac catheterization. Patient will follow-up with labor specialist for HAROON and then valvular repair. Black And White Printer Operator also considering transferring patient to or [facility]. Ordered: [facility] Hospital Care/Day Moderate 35 Minutes 90529 4. Elevated troponin (R79.89: Other specified abnormal findings of blood chemistry) Secondary to type II non-ST segment elevation myocardial infarction from above and mild coronary artery disease.. Seen by labor specialist and underwent cardiac catheterization that showed mild coronary artery disease. Continue on aspirin, Lipitor, and Coreg. Ordered: [facility] Hospital Care/Day Moderate 35 Minutes [id number] 5. Mild coronary artery disease (I25.10: Atherosclerotic heart disease of [place] coronary artery without angina pectoris) As seen on cardiac catheterization on 07/05/2023. Continue on Lipitor and aspirin. Ordered: [facility] Hospital Care/Day Moderate 35 Minutes 35320 6. anxiety (F41.9: Anxiety disorder, unspecified) Increase [...] vein thrombosis (DVT) prophylaxis (Z79.899: Other intermediate (current) drug therapy) SCDs. Eliquis to resume in 4 days. Disposition: Home soon today if heart rate is under good control with plans to follow-up with labor specialist and urologist as outpatient. However if heart rate is still elevated then we will call [facility] or [facility] to see if we can transfer patient for valve repair/replacement. I discussed the diagnosis and plan of care with the patient at the bedside. Moderate level of MDM based on addressing above issues. This documentation was transcribed using voice recognition software. Several attempts were made to ensure accuracy. However inadvertent computerized boatwright errors may be present. Nahid Serrato. Hospitalist. [...] to transfer the patient directly to the [facility] or [facility] given her logistic challenges with gettinga [...] artery disease (I25.10: Atherosclerotic heart disease of [place] coronary artery without angina pectoris) 6. Pleural effusion (J90: Pleural effusion, not elsewhere classified) 7. Urinary hesitancy (R39.11: Hesitancy of micturition) 8. Other urethral stricture, female (N35.82: Other urethral stricture, female) 9. Urinary retention (R33.9: Retention of urine, unspecified) 10. Constipation (K59.00: Constipation, unspecified) 11. On deep vein thrombosis (DVT) prophylaxis (Z79.899: Other intermediate (current) drug therapy) Orders: acetaminophen, 650 [...] shortness of breath and was admitted to [facility] with acute paroxysmal atrial fibrillation with [...] date 07/06/23 9:00:00 EST, 07/05/23 11:13:00 EST [facility] Hospital Care/Day Moderate 35 Minutes [id number] 2. Acute systolic congestive heart failure (I50.21: Acute systolic (congestive) heart failure) Acute systolic congestive heart failure present on admission. Seen by labor specialist. She is status post cardiac catheterization that showed mild coronary artery disease. Also showed severe mitral regurgitation and tricuspid regurgitation.. Ejection fraction of 30 to 35%. Continue on aspirin, Coreg, losartan, Lasix. Ordered: [facility] Hospital Care/Day Moderate 35 Minutes 67645 3. Severe mitral regurgitation (I34.0: Nonrheumatic mitral (valve) insufficiency) Severe mitral regurgitation seen on cardiac catheterization. Follow-up with labor specialist as outpatient for HAROON and then valvular repair. Ordered: [facility] Hospital Care/Day Moderate 35 Minutes 05814 4. Elevated troponin (R79.89: Other specified abnormal findings of blood chemistry) Secondary to type II non-ST segment elevation myocardial infarction from above and mild coronary artery disease.. Seen by labor specialist and underwent cardiac catheterization that showed mild coronary artery disease. Continue on aspirin, Lipitor, and Coreg. Ordered: furosemide, 40 mg = 1 tab(s), Tab, Oral, Daily, Routine, Start date 07/06/23 9:00:00 EST, 07/05/23 11:13:00 EST [facility] Hospital Care/Day Moderate 35 Minutes [id number] 5. Mild coronary artery disease (I25.10: Atherosclerotic heart disease of [place] coronary artery without angina pectoris) As seen on cardiac catheterization on 07/06/2023. Continue on Lipitor and aspirin. Or[facility]: [facility]/Day Moderate 35 Minutes 17960 6. Pleural effusion (J90: Pleural effusion, not [...] vein thrombosis (DVT) prophylaxis (Z79.899: Other intermediate (current) drug therapy) Lovenox. Disposition: Home in a.m. to follow-up with labor specialist and urologist. I discussed the diagnosis and plan of care with the patient at the bedside. Moderate level of MDM based on addressing above issues. This documentation was transcribed using voice recognition software. Several attempts were made to ensure accuracy. However inadvertent computerized boatwright errors may be present. Nahid Serrato. Hospitalist. Orders: Basic Metabolic Panel Basic Metabolic Panel Referral to [facility] Extracted from:Title:APSO NoteAuthor:JAZMÍN MCMAHON, FaustinoanefoDate:07/04/23 73-year-old female with history of ureteral stricture with previous dilations, anxiety disorder presented with complaints of urinary hesitancy, constipation, cough and shortness of breath and was admitted to [facility] with acute paroxysmal atrial fibrillation with [...] BID, # 60 tab(s), Refills(s) 0, Pharmacy: [facility] #[id number], 165, cm, 07/02/23 21:30:00 EST, Height/Length Dosing, 55.7, kg, 07/02/23 21:30:00 EST, Weight Dosing Echo Transthoracic Complete [facility] Hospital Care/Day Moderate 35 Minutes 88690 2. Acute systolic congestive heart failure (I50.21: Acute systolic (congestive) heart failure) Acute systolic congestive heart failure present on admission. Cardiology is following. Ejection fraction of 30 to 35%. Cardiology is planning on cardiac catheterization for ischemic work-up in AM. Meanwhile continue on aspirin, Coreg, losartan. We will verify with labor specialist about Lasix. Ordered: [facility] Hospital Care/Day Moderate 35 Minutes 65381 3. Elevated troponin (R79.89: Other specified abnormal findings of blood chemistry) Secondary to type II non-ST segment elevation myocardial infarction from above. Echocardiogram shows ejection fraction of 30 to 35%. Black And White Printer Operator following with plans for cardiac catheterization in AM. Meanwhile continue on aspirin and Coreg. Ordered: Echo Transthoracic Complete [facility] Care/Day Moderate 35 Minutes 39618 4. Pleural effusion (J90: Pleural effusion, not elsewhere classified) Small pleural effusion secondary to acute systolic congestive heart failure. Supportive care. Lasix as needed. Ordered: [facility] Hospital Care/Day Moderate 35 Minutes [id number] 5. Urinary hesitancy (R39.11: Hesitancy of micturition) Secondary to urethral stricture and urinary retention. She is status post Robles catheter placement. Urology consult reviewed by me. I appreciate and agreed recommendations. Patient will discharge with Robles catheter and leg bag to follow-up with urologist as outpatient. Ordered: [facility] Hospital Care/Day Moderate 35 Minutes 72501 6. Other urethral stricture, female (N35.82: Other [...] Daily, NOW, Start date 07/03/23 11:16:00 EST [facility] Hospital Care/Day Moderate 35 Minutes 98579 9. On deep vein thrombosis (DVT) prophylaxis (Z79.899: Other intermediate (current) drug therapy) Lovenox. Disposition: Pending cardiac catheterization in AM. I discussed the diagnosis and plan of care with the patient at the bedside. I also spoke with the patient's daughter Mandeep over the phone. Moderate level of MDM based on addressing above issues. This documentation was transcribed using voice recognition software. Several attempts were made to ensure accuracy. However inadvertent computerized boatwright errors may be present. Nahid Serrato. Hospitalist. [...] vein thrombosis (DVT) prophylaxis (Z79.899: Other intermediate (current) drug therapy) Urinary retention (R33.9: [...] deep vein thrombosis (DVT) prophylaxis (Z79.899: Other intermission coordinator (current) drug therapy) Urinary retention (R33.9: Retention of urine, unspecified) Extracted from:Title:Urology Consult and H&P 2Author:Cody LEO MD PDate: 07/03/23 Impression and Plan Diagnosis Atrial fibrillation with RVR (YHZ70-TQ I48.91, Discharge, Medical). Constipation (BFQ09-BO K59.00, Discharge, Medical). Other urethral stricture, female (FMO89-JF N35.82, Discharge, Medical). Urinary retention (WAA18-LD R33.9, Working, Medical). Course: Worsening, Overall this [...] I ordered echocardiogram. Ordered: Echo Transthoracic Complete [facility] Hospital Care/Day Moderate 35 Minutes 82676 2. Elevated troponin (R79.89: Other specified abnormal findings of blood chemistry) Secondary to type II non-ST segment elevation myocardial infarction from above. Echocardiogram ordered. Cardiology consult pending. Continue on aspirin. Ordered: Echo Transthoracic Complete [facility] Hospital Care/Day Moderate 35 Minutes 09818 3. Urinary hesitancy (R39.11: Hesitancy of micturition) Secondary to urethral stricture. Patient is status post Robles catheter placement for urinary retention. She will follow-up with urologist as outpatient. Ordered: [facility] Hospital Care/Day Moderate 35 Minutes 93832 4. Constipation (K59.00: Constipation, unspecified) Started patient on MiraLAX and lactulose. Ordered: lactulose, 20 gram = 30 mL, Syrup, Oral, Once, Stop date 07/03/23 12:00:00 EST, Routine, Start date07/03/23 12:00:00 EST, 07/03/23 12:00:00 EST polyethylene glycol 3350, 17 gram = 1 EA, Powder-Recon, Oral, Daily, Routine, Start date 07/03/23 12:00:00 EST, 07/03/23 12:00:00 EST [facility] Hospital Care/Day Moderate 35 Minutes 60930 5. Other urethral stricture, female (N35.82: Other urethral stricture, female) Resulting in urinary retention. Patient is status post Robles catheter during this admission. Gets dilation of the ureter every 6 months. Urology consult pending. 6. On deep vein thrombosis (DVT) prophylaxis (Z79.899: Other intermediate (current) drug therapy) Lovenox. Disposition: Pending echocardiogram, cardiology and urology consult. I discussed the diagnosis and plan of care with the patient at the bedside. Moderate level of MDM based on addressing above issues. This documentation was transcribed using voice recognition software. Several attempts were made to ensure accuracy. However inadvertent computerized boatwright errors may be present. Nahid Serrato. Hospitalist. [...] deep vein thrombosis (DVT) prophylaxis (Z79.899: Other intermission coordinator (current) drug therapy) SCD, enoxaparin Orders: acetaminophen, [...] Date:11/22/2023 01:00:00 PM Scheduled Provider:Micheline BROOKS MD Location:[facility] Appointment Type:URO Office Visit Future Scheduled Tests Laboratory* Basic Metabolic Panel 07/12/23 * Digoxin Level 07/12/23 [facility]11-22-2023 NoteCRM entered the room to discuss [...] transport. Plan now to stay, per Dr KahnMansfield HospitalComment on above:Result Comment: Electronically Signed By: Margaret Grimm\.br\Date and Time Signed: 07/05/23 15:06 [id number] Evaluation + Plan noteExtracted from:Title: Procedure Note [...] Date:11/22/2023 01:00:00 PM Scheduled Provider:Micheline BROOKS MD Location:[facility] Appointment Type:URO Office Visit Future Scheduled Tests Laboratory* Basic Metabolic Panel 07/12/23 * Digoxin Level 07/12/23 [facility]11-22-2023 Hospital Discharge instructions Patient Education 07/05/2023 09:04:47 CV - Cardiovascular Discharge Instructions (Custom) [place], [place] CARDIOVASCULAR DISCHARGE INSTRUCTIONS Diet: Resume pre-procedure [...] hours post procedure: Actoplus MetGlucophageGlucophage XR GlucovanceAvandametFortamet Ust-fteanavbrMcjqvyNchz-mzrqmvelv GlumetzaJanumetMetaglip RiometGlycomet *Minimal pain, soreness and/or discomfort [...] you are interested in smoking cessation, contact [facility] at [phone], ext. [phone]. In the event you are unable to reach your physician, please call [facility] at [phone] and the gear hobber operator will assist you. Seek Immediate Medical Care for: Bleeding: Apply continuous pressure to the site and Call 911. Should the arm or leg become cold, numb, blue or white call your physician immediately. Signs of infection are redness, warmth, swelling, increased tenderness, colored drainage, fever or chills Chest pain Follow Up Care 07/02/2023 21:18:33 With:Johan HENRIQUEZ Address: [address] [place] [address]- [phone] Business (1) When:2 weeks Comments:Call for followup appointment With:Peggy Nazario Address: [address] [place] [phone] Business (1) When:07/10/2023 13:00:00 With:Micheline BROOKS Address: [facility] [address] [place] [address] Business (1) When: Unknown Comments:Call for followup appointment re: the indwelling Robles catheter. [facility]11-21-2023 NoteCRM entered the room to discuss dc planning. PCP, DME and insurance discussed. Patient is alert andinvolved in plan of care. Contact information provided and whiteboard updated. Pt was seen by Cardstomarsha, pt will be dc'd on Eliquis. CRM will pablo check and apply coupon if needed. Lucila Humphreys. ANt dc today. Pt will transport self home.Mansfield HospitalComment on above:Result Comment: Electronically Signed By: aMrgaret Grimm\Date and Time Signed: 07/04/23 10:49 [id number] NoteChief Complaint I cannot urinate Reason for [...] deep vein thrombosis (DVT) prophylaxis (Z79.899: Other intermission coordinator (current) drug therapy) Urinary retention (R33.9: Retention [...] tab(s), Oral, Daily Ativa (more content not included)...M[facility]field HospitalComment on above: Result Comment: Electronically Signed By: Shell MCMAHON, Eb Yeh\.br\Date and Time Signed: 07/03/23 21:35 [id number] NoteEchocardiology Procedure Exam Date/Time Accession # Ordering Echo Transthoracic 07/03/2023 13:36 EST [id number] Nahid SERRATO MD Complete CPT code 03499 [id number] Reason for Exam (Echo Transthoracic Complete) Congestive Heart Failure Report Version: 1 Study ID: [id number] [address] [place] [address] Adult Echocardiogram Report Name: HARJIT ASENCIO I Study Date: 07/03/2023, 1: 00 PM Patient Location: [address] [place] [address] : 1950 (MM/DD/YYYY) Gender: Female Age: 73 [...] Signed by: Eb Goff MD Transcribed by: [facility] Technologist: [facility]11-20-2023 Note Chief Complaint Pt presents [...] 22:10:00) Lymph Auto: 15.3 % (07/02/23 22:10:00) [place] Auto: 7.7 % (07/02/23 22:10:00) Eos Auto: 0 % (07/02/23 22:10:00) Basophil Auto: 0.3 % (07/02/23 22:10:00) Neutro Absolute: 4.7 E9/L (07/02/23 22:10:00) Lymph Absolute: 0.9 E9/L Low (07/02/23 22:10:00) [place] Absolute: 0.5 E9/L (07/02/23 22:10:00) Eos Absolute: [...] Trace2 Abnormal (07/02/23 22: (more content not included)...Mansfield HospitalComment on above:Result Comment: Electronically Signed By: Noman PATTON DO.zak\Date and Time Signed: 07/03/23 02:59 [id number] Hospital Discharge instructions Patient Education 07/01/2023 00:37:46 Abdominal Pain, Adult, Mqas-ry-Obds Abdominal Pain, Adult Many things can cause belly (abdominal) pain. Most times, belly pain is not dangerous. Many cases of belly pain can be watched and treated at home. Sometimes, though, belly pain is serious. Your doctor will try to find the cause of your belly pain. Follow these instructions at home: Medicines Take ybwe-vra-hbrtqry and prescription medicines only as told by [...] your belly pain for any changes. Take grxt-gtn-evzhmch and prescription medicines only as told by [...] provider. Document Revised: 12/09/2019 Document Reviewed: 12/09/2019 [employer] Patient Education 2022 [employer]. Follow Up Care 06/30/2023 18:51:38 With:Peggy Nazario Address: [address] [place], [place] [phone] Business (1) When:07/04/2023 Comments:You can use the Bentyl, Zofran every 6 hours as needed for pain and nausea. Please follow-up with your primary care doctor next 2 to 3 days for further evaluation management. Please return to the ED for any new or worsening symptoms. [facility]11-17-2023 Evaluation + Plan noteExtracted from: Title:ED NoteAuthor:Koby Masterson DO ADate:06/30/23 Abdominal pain, acute (R10.9 : Unspecified abdominal pain) Orders: dicyclomine, 20 mg = 2 mL, Injection, IntraMuscular, Once, Stop date 06/30/23 20:58:00 EST, STAT, Start date 06/30/23 20:58:00 EST, 06/30/23 20:58:00 EST dicyclomine, 10 mg = 1 cap(s), Oral, QID, X 7 day(s), # 14 cap(s), Refills(s) 0, Pharmacy: [facility] #[id number], 165, cm, 06/30/23 19:37:00 EST, Height/Length Dosing, [...] q8hr, # 12 tab(s), Refills(s) 0, Pharmacy: [facility]#[id number], 165, cm, 06/30/23 19:37:00 EST, Height/Length Dosing, 55.7, kg, 06/30/23 19:37:00 EST, Weight Dosing Automated Diff Basic Metabolic Panel CBC w/ Auto Diff CT Abdomen/Pelvis w/o Contrast eGFR Extra Blue Tube Hepatic Function Panel Lipase Level UA With Cult Reflex Future Appointments Appointment Date:11/22/2023 01:00:00 PM Scheduled Provider:Micheline BROOKS MD Location:[facility] Appointment Type:URO Office Visit [facility]09-13-2023 Hospital Discharge instructions Patient Education 04/26/2023 [...] symptoms are. Treatment may include: Using an llgn-fex-yiieiph vaginal lubricant before sex. Using a long-acting [...] Follow these instructions at home: Medicines Take qsag-wsv-abgymyc and prescription medicines only as told by your health care provider. Do not use herbal or alternative medicines unless your health care provider says that you can. Use morm-yee-ydyyonc creams, lubricants, or moisturizers for dryness only [...] provider. Document Revised: 01/28/2021 Document Reviewed: 01/28/2021 [employer] Patient Education 2022 [employer]. Follow Up Care 10/25/2022 10:34:06 With:CECILIA MCMAHON, Micheline Morgan, URL Address: [facility] [address] , [place] [address]- When: Unknown [facility] [place] 08-22-2023 Hospital Discharge instructions Patient Education 04/04/2023 [...] Follow these instructions at home: Medicines Take xnrx-atc-tupweve and prescription medicines only as told by [...] Watch your condition for any changes. Take srac-exb-rfnnfdb and prescription medicines only as told by [...] provider. Document Revised: 09/18/2020 Document Reviewed: 12/09/2019 [employer] Patient Education 2022 [employer]. Follow Up Care 04/04/2023 13:51:29 With:Peggy Nazario Address: [address] [place] [phone] Business (1) When:04/07/2023 16:25:09 Comments:Call the office [...] you develop any new or worsening symptoms. [facility]06-18-2023 Hospital Discharge instructions Patient Education 01/28/2023 23:28:19 RICE Therapy for Routine Care of Injuries, Rwsd-dh-Qzjm RICE Therapy for Routine Care of Injuries [...] provider. Document Revised: 05/20/2021 Document Reviewed: 05/20/2021 [employer] Patient Education 2022 [employer] 01/28/2023 23:28:19 Hand Contusion Hand Contusion [...] An elastic wrap to support your hand. Opug-krl-tnerchp medicines to control pain. Follow these instructions [...] sitting or lying down. General instructions Take mscw-axx-zorlgjq and prescription medicines only as told by [...] provider. Document Revised: 11/18/2021 Document Reviewed: 11/18/2021 [employer] Patient Education 2022 [employer]. Follow Up Care 01/28/2023 21:23:51 With:Peggy Nazario Address: [address] [place] [phone] Business (1) When:01/31/2023 Comments:Follow-up with your primary care provider in 3 to 5 days. If symptoms worsen, do not improve, or new symptoms arise please report back to emergency department for further evaluation. [facility]06-17-2023 Evaluation + Plan noteExtracted from: Title:ED NoteAuthor:Waldemar PALMA, Med Patino.Date:01/28/23 Contusion of left hand (S60. 222A: Contusion of left hand, initial encounter) Orders: XR Hand 3+ Views Left Future Appointments Appointment Date:04/26/2023 03:15:00 PM Scheduled Provider:Micheline BROOKS MD Location:[facility] Appointment Type:URO Office Visit [facility]03-14-2023 Hospital Discharge instructions Patient Education 10/25/2022 [...] [facility] [address] [place] [id number] [facility] (1) When:04/27/2023 10:27:19 [facility]07-21-2022 Hospital Discharge instructions Patient Education 03/03/2022 [...] reconstructed. Follow these instructions at home: Take axrt-uzk-mgqzdyu and prescription medicines only as told by [...] 08/26/2016 Document Revised: 03/13/2019 Document Reviewed: 03/13/2019 [employer]API Patient Education 2020 [employer]. Follow Up Care 02/28/2022 09:40:23 With:CARMINA GARRISON PA-C, URL Address: [address] [place] [address] When: Unknown [facility] [place] 07-05-2022 Hospital Discharge instructions Patient Education 02/15/2022 14:03:18 Contusion, Zqll-su-Jrcz Contusion A contusion is a deep bruise. [...] sitting or lying down. General instructions Take qtrb-sgd-nvvvbch and prescription medicines only as told by [...] is also called RICE. Youmay be given gfaz-fds-xplkyts medicines for pain. Contact a doctor if [...] 01/16/2009 Document Revised: 03/22/2019 Document Reviewed: 03/22/2019 [employer]API Patient Education 2020 [employer]. Follow Up Care 02/15/2022 13:08:58 With:Aravind MCMAHON, KANA Saini Address: [address] [place], [place] [phone]- When:02/18/2022 [facility]05-13-2022 Hospital Discharge instructions Patient Education 12/24/2021 18:30:08 Chemical Conjunctivitis, Adult, Wztb-fn-Jrai Chemical Conjunctivitis, Adult Chemical conjunctivitis is irritation [...] cannot use soap and water use hand marriage and family counselor. Contact a doctor if: Your symptoms do [...] 07/31/2006 Document Revised: 11/20/2019 Document Reviewed: 10/06/2017 HumanAPI Patient Education 2020 [employer]. Follow Up Care 12/24/2021 17:34:06 With:Krysta Church Address: [address] [place] [address], [address] [place] [phone] Business (1) When:12/27/2021 18:21:21 With:Peggy Nazario Address: [address] [place] [phone]- Business (1) When:Within 3 Day(s) [facility] Future App[facility]ments Appointment Date:03/02/2022 02:00:00 PM Scheduled Provider:Micheline BROOKS MD Location:[facility] Appointment Type:URO Office Visit Future Scheduled Tests Laboratory* COVID-19 ([facility]) 08/12/21 [facility] Future Appointments Appointment Date:02/28/2022 09:30:00 AM Scheduled Provider:[facility] New Patient (FT) Appointment Date:03/02/2022 02:00:00 PM Scheduled Provider:Micheline BROOKS MD Location:[facility] Appointment Type:URO Office Visit Future Scheduled Tests Laboratory* COVID-19 ([facility]) 08/12/21 [facility] Future Appointments Appointment Date:04/04/2022 10:00:00 AM Scheduled Provider:Yennifer Iraheta MD Location[facility] Appointment Type:Vascular New Patient (FT) Future Scheduled Tests Laboratory* COVID-19 ([facility]) 08/12/21 [facility] Evaluation + Plan note Future Appointments Appointment Date:07/25/2022 09:15:00 AM Scheduled Provider:Yennifer Iraheta MD Location[facility] Appointment Type:Vascular Follow Up (FT) Appointment Date:09/26/2022 02:45:00 PM Scheduled Provider:[facility] Office Visit Future Scheduled Tests Laboratory* COVID-19 ([facility]) 08/12/21 Radiology* US LE Venous Duplex Insufficiency Bilat 06/14/22 [facility] Future Appointments Appointment Date:07/25/2022 09:15:00 AM Scheduled Provider:Yennifer Iraheta MD Location[facility] Appointment Type:Vascular Follow Up (FT) Appointment Date:09/26/2022 02:45:00 PM Scheduled Provider:Micheline BROOKS [facility] Type:[facility]O Office Visit Future Scheduled Tests Laboratory* COVID-19 ([facility]) 08/12/21 [facility] Future Appointments Appointment Date:09/26/2022 02:45:00 PM Scheduled Provider:Micheline BROOKS [facility] Future Appointments Appointment Date:12/05/2022 03:00:00 PM Scheduled Provider: [facility] Type:MA Screen (FT) Appointment Date:04/26/2023 03:15:00 PM Scheduled Provider:Micheline BROOKS MD Location:[facility] Appointment Type:URO Office Visit Future Scheduled Tests Radiology* MA Mamm Screen w/CAD if perf and 3D Dawson 12/05/22 [facility] Future Appointments Appointment Date:04/26/2023 03:15:00 PM Scheduled Provider:Micheline BROOKS MD Location:[facility] Appointment Type:URO [facility] Future Appointments Appointment Date:07/19/2023 03:00:00 PM Scheduled Provider:Micheline BROOKS MD [facility] Appointment Type:URO Office Visit Appointment Date:07/20/2023 10:30:00 AM Scheduled Provider:Johan HENRIQUEZ MD [facility] Type:Cardiology Inpatient Follow Up (FT) Appointment Date:11/22/2023 01:00:00 PM Scheduled Provider:Micheline BROOKS MD Location:[facility] Appointment Type:URO Office Visit Future Scheduled Tests Laboratory* Basic Metabolic Panel 07/12/23 * Digoxin Level 07/12/23 [facility] Future Appointments Appointment Date:01/24/2024 02:30:00 PM Scheduled Provider:Micheline BROOKS MD [facility] Appointment Type:URO Office Visit Future Scheduled Tests Laboratory* Basic Metabolic Panel 07/12/23 * Digoxin Level 07/12/23 [facility] Future Appointments Appointment Date:01/24/2024 02:30:00 PM Scheduled Provider:Micheline BROOKS MD Location:[facility] Appointment Type:URO Office Visit Diagnostic Tests Pending * Urine Culture 11/22/23 Future Scheduled Tests Laboratory* Basic Metabolic Panel 07/12/23 * Digoxin Level 07/12/23 [facility] Diagnosis Anxiety Anxiety state, unspecified documented in this encounter [facility]* Diagnosis Gastroesophageal reflux disease without esophagitis Esophageal reflux documented in this encounter [facility]* Diagnosis Non-rheumatic mitral [...] Unspecified essential hypertension [facility] Diagnosis Mitral valve insufficiency, unspecified etiology- Primary Anxiety Anxiety state, unspecified Paroxysmal atrial fibrillation (CMS/HCC) Atrial fibrillation Other cardiomyopathy (CMS/HCC) Hospital discharge follow-up Other follow-up examination Other thrombophilia (D68.69) Atherosclerosis of aorta (I70.0) Atherosclerosis of aorta [facility] Diagnosis Feeling of incomplete bladder emptying- Primary Incomplete bladder emptying Stricture of female urethra, unspecified stricture type Severe protein-calorie malnutrition (HCC) Other severe protein-calorie malnutrition [facility] Diagnosis Screening for genitourinary condition Screening for other and unspecified genitourinary condition [facility]* Diagnosis Feeling of incomplete bladder emptying- Primary Incomplete bladder emptying Stricture of female urethra, unspecified stricture type Severe protein-calorie malnutrition (HCC) Other severe protein-calorie malnutrition [facility]* Diagnosis Mitral valve regurgitation due to cardiomyopathy (HCC)- Primary [facility]* Diagnosis Non-rheumatic mitral regurgitation Mitral valve disorders Persistent atrial fibrillation (HCC) Atrial fibrillation Non-ischemic cardiomyopathy (HCC) Other primary cardiomyopathies Chronic HFrEF (heart failure with reduced ejection fraction) ([facility]) [facility]* Diagnosis Stricture of female urethra, unspecified stricture type- Primary Feeling of incomplete bladder emptying Incomplete bladder emptying documented [facility]* Diagnosis Screening for genitourinary condition Screening for other and unspecified genitourinary condition documented [facility]* Diagnosis Feeling of incomplete bladder emptying- Primary Incomplete bladder emptying Stricture of female urethra, unspecified stricture type [facility]* Diagnosis Dysuria documented in this encounter [facility]* Diagnosis Anxiety Anxiety state, unspecified documented in this encounter [facility]* Diagnosis Postmenopausal atrophic vaginitis Breast cancer screening by mammogram documented in this encounter [facility]* Diagnosis Dysuria- Primary Urinary frequency Atrial fibrillation, persistent (HCC) (CMS/HCC) skilled nursing current use of anticoagulant BMI 22.0-22.9, adult documented in this encounter [facility]* Diagnosis Anxiety Anxiety state, [...] agoraphobia Acute cough- Primary Hematuria, unspecified type 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 Atrial fibrillation, persistent [...] cough- Primary Bruising Contusion of unspecified site skilled nursing current use of anticoagulant Atrial [...] agoraphobia Atrial fibrillation, persistent (HCC) (CMS/HCC)- Primary 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 Primary hypertension (CMS/HCC) [...] agoraphobia Atrial fibrillation, persistent (HCC) (CMS/HCC)- Primary 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 Mitral valve regurgitation [...] Anxiety state, unspecified documented in this encounter [facility]* Diagnosis Primary hypertension- Primary Unspecified essential hypertension Atrial fibrillation, persistent (HCC) Atherosclerosis of aorta Panic attack Panic disorder without agoraphobia Frequent urination- Primary Urinary frequency Painful urination Dysuria Mitral valve regurgitation due to cardiomyopathy (HCC) Exertional dyspnea Other dyspnea and respiratory abnormality Hypertensive heart disease with heart failure (HCC) Unspecified hypertensive heart disease with heart failure Atrial fibrillation, persistent (HCC) 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 difficile diarrhea Intestinal infection due to clostridium difficile Mitral valve regurgitation due to cardiomyopathy (HCC) Atrial fibrillation, persistent (HCC) skilled nursing current use of anticoagulant documented in this encounter [facility]* Diagnosis Primary hypertension- Primary Unspecified essential hypertension Atrial fibrillation, persistent (HCC) Atherosclerosis of aorta Panic attack Panic disorder without agoraphobia Bee sting, accidental or unintentional, initial encounter- Primary Gastroesophageal reflux disease without esophagitis Esophageal reflux Ear fullness, right Fluid level behind tympanic membrane of right ear documented in this encounter [facility] HealthcareH[facility] course Narrative No data available for this section [facility] Discharge instructions No data available for this section [facility] No data available for this section [facility] for referral (narrative) , Mitral Valve and Tricuspid Valve Repair. Referred by: MARTINEZ MCMAHON, Johan Patino [facility] for referral (narrative)* Outpatient Procedure (Routine) - AuthorizedSpecialtyDiagnoses / ProceduresReferred By ContactReferred To [facility] Diagnoses Non-rheumatic mitral regurgitation Persistent atrial fibrillation (HCC) Non-ischemic cardiomyopathy (HCC) Chronic HFrEF (heart failure with reduced ejection fraction) (HCC) Procedures ECG COMPLETE ECG ROUTINE ECG W/LEAST 12 LDS W/I&R Ana Rivas, OVERNIGHT BABYSITTER.PUNCH OPERATOR [address] [place] [address] [facility] [address] [place] [place] [phone] Referral IDStatusReasonStlancaster DateExpiration DateVisits RequestedVisits [id number] Auto-Generated Referral * Transition of Care (Routine) - Ref Not RequiredSpecialtyDiagnoses / Procedures Referred By ContactReferred To Contact Diagnoses Non-rheumatic mitral regurgitation Persistent atrial fibrillation (HCC) Non-ischemic cardiomyopathy (HCC) Chronic HFrEF (heart failure with reduced ejection fraction) (HCC) Procedures CARDIOVASCULAR MEDICINE OP FOLLOW UP APPT ORDER Ana Rivas APRN.CNP [address] [phone] Referral [facility]StatusRe[facility] DateExpiration DateVisits RequestedVisits [id number] Not Required PCP Requested Referral * Outpatient Procedure (Routine) - AuthorizedSpecialtyDiagnoses / Procedures Referred By ContactReferred [facility] Diagnoses Non-rheumatic mitral regurgitation Persistent atrial fibrillation (HCC) Non-ischemic cardiomyopathy (HCC) Chronic HFrEF (heart failure with reduced ejection fraction) (HCC) Procedures ECG COMPLETE ECG ROUTINE ECG W/LEAST 12 LDS W/I&R Ana Rivas APRN.PUNCH OPERATOR [address] [place] [address] [facility] [address] [place] [address] Referral IDStatusasonWebsterville DateExpiration DateVisits RequestedVisits [id number] Auto-Generated Referral * Transition of Care (Routine) - Ref Not RequiredSpecialtyDiagnoses / Procedures Referred By ContactReferred To Contact Diagnoses Non-rheumatic mitral regurgitation Persistent atrial fibrillation (HCC) Non-ischemic cardiomyopathy (HCC) Chronic HFrEF (heart failure with reduced ejection fraction) (HCC) Procedures CARDIOVASCULAR MEDICINE OP FOLLOW UP APPT ORDER Ana Rivas APRN.CNP [address] [place] [address] Referral IDStatusReasonStart DateExpiration DateVisits RequestedVisits [id number] Not Required PCP Requested Referral * Outpatient Procedure (Routine) - AuthorizedSpecialtyDiagnoses / Procedures Referred By ContactReferred To [facility] Diagnoses Non-rheumatic mitral regurgitation Persistent atrial fibrillation (HCC) Non-ischemic cardiomyopathy (HCC) Chronic HFrEF (heart failure with reduced ejection fraction) (HCC) Procedures ECG COMPLETE ECG ROUTINE ECG W/LEAST 12 LDS W/I&R Ana Rivas APRN.CNP [address] [place] [address] [facility] [address] [place] [address] Referral IDStatusReasonStart DateExpiration DateVisits RequestedVisits [id number] Auto-Generated Referral * Transition of Care (Routine) - Ref Not RequiredSpecialtyDiagnoses / Procedures Referred By ContactReferred To Contact Diagnoses Non-rheumatic mitral regurgitation Persistent atrial fibrillation (HCC) Non-ischemic cardiomyopathy (HCC) Chronic HFrEF (heart failure with reduced ejection fraction) (HCC) Procedures CARDIOVASCULAR MEDICINE OP FOLLOW UP APPT ORDER Ana Rivas APRN.CNP [address] [place] [address] Referral IDStatusReasonStart DateExpiration DateVisits RequestedVisits [id number] Not Required PCP Requested Referral [facility] for referral (narrative)* Consultation (Routine) - Pending ReviewSpecialtyDiagnoses / ProceduresReferred By ContactReferred To ContactCardiothoracic Surgery Diagnoses Mitral valve insufficiency, unspecified etiology Procedures ID OFFICE/OUTPATIENT [facility] 60 MINUTES Peggy Nazario MD [address] [place] [id number] Referral IDStatusReasonStart DateExpiration DateVisits RequestedVisits [id number] Review Specialty Services Required / [facility] [...] section and content) DATE CREATED AUTHOR 08/23/2021 [facility] [employer] DATE CREATED AUTHOR AUTHOR'S ORGANIZ ATION 06/05/2024 [facility] DATE CREATED AUTHOR AUTHOR'S ORGANIZ ATION 06/29/2024 [facility] DATE CREATED AUTHOR AUTHOR'S ORGANIZ ATION 11/22/2024 [facility] DATE CREATED AUTHOR AUTHOR'S ORGANIZ ATION 04/21/2025 [facility] DATE CREATED AUTHOR AUTHOR'S ORGANIZ ATION 04/25/2025 [facility] DATE CREATED AUTHOR AUTHOR'S ORGANIZ ATION 04/26/2025 [facility] DATE CREATED AUTHOR AUTHOR'S ORGANIZ ATION 04/29/2025 [facility] DATE CREATED AUTHOR AUTHOR'S ORGANIZ ATION 05/02/2025 [facility] DATE CREATED AUTHOR AUTHOR'S ORGANIZ ATION 05/03/2025 [facility] DATE CREATED AUTHOR AUTHOR'S ORGANIZ ATION 05/15/2025 [facility] EPIC DATE CREATED AUTHOR AUTHOR'S ORGANIZ ATION 06/01/2025 [facility] Care Team (unrecognized sect ion and content) Team MemberRelationshipSpecialtyStart DateEnd Date Peggy Nazario [address] [place] [address] PCP - GeneralFamily Saeizcfd76/11/23 Micheline Sorto MD [address] [place] [address] SurgeonCardiac Surg07/24/23 Johan Henriquez MD [facility] [address] [facility] [place] [address] MenabspeswfjSifscyphbo27/11/23Team MemberRelationshipSpecialtyStart DateEnd Date Peggy Nazario MD [address] [place] [address] PCP - [facility]CO [facility]01/05/23 Peggy Nazario MD [address] [place] [id number] [facility] - [facility]02/08/23Team MemberRelationshipSpecialtyStart DateEnd Date Peggy Nazario MD [address] [place] [id number] PCP - [facility]CO [facility]01/05/23 Peggy Nazario MD [address] [place] [id number] PCP - [facility]02/08/23Team MemberRelationshipSpecialtyStart DateEnd Date Peggy Nazario [address] [place] [id number] [facility] Ppqjttrg39/11/23 Micheline Sorto MD [address] [id number] SurgeonCardiac Surg07/24/23 Johan Henriquez MD [facility] [address] [place] [address] OhkxqoguzwcmSjoknndlyx62/11/23 Alea Harley MD [address] [place] [address] Rtzqyyhdud45/15/23 Alea Harley MD [address] [place] [address] Primary Staff PhysicianCardiology1/10/24Team MemberRelationshipSpecialtyStart DateEnd Date Peggy Nazario [address] [place] [address] PCP - [facility] Aphqxfht79/11/23 Micheline Sorto MD [address] [place] [address] SurgeonCardiac Surg07/24/23 Johan Henriquez MD [address] [place] [address] QmwyiqucpuhuJstzaeewug46/11/23 Alea Harley MD [address] [place] [address] Frryvlmsbs47/15/23 Alea Harley MD [address] [place] [address] Primary Staff PhysicianCardiology08/23/23Te MemberRelationshipSpecialtyStart DateEnd Date Peggy Nazario [address] [place] [address] PCP - [facility] Sqcwcnya71/11/23 Micheline Sorto MD [address] [place] [address] SurgeonCardiac Surg07/24/23 Johan Henriquez MD [address] [place] [address] RulzldwlikxbLolhgtbdoh23/11/23 Alea Harley MD [address] [place] [address] Siktdhgead58/15/23 Alea Harley MD [address] [place] [place] [address] Primary Staff PhysicianCardiology08/23/23Team MemberRelationshipSpecialtyStart DateEnd Date Peggy Nazario MD [address] [place] [id number] PCP - [facility]CO [facility]01/05/23 Peggy Nazario MD [address] [place] [id number] PCP - GeneralFamily Medicine02/08/23Team MemberRelationshipSpecialtyStart DateEnd Date Peggy Nazario [address] [place] [address] PCP - GeneralFamily Xnhwhebq60/11/23 Micheline Sorto MD [address] [place] [address] SurgeonCardiac Surg07/24/23 Johan Henriquez MD [address] [address] WmcvivonngtrLuhptevycs44/11/23 Alea Harley MD [address] [place] [address] Bpmvcgeimd06/15/23 Alea Harley MD [address] [place] [address] Primary Staff PhysicianCardiology08/23/23Team MemberRelationshipSpecialtyStart DateEnd Date Peggy Nazario MD [address] [place] [id number] PCP - ACO Reach01/05/23 Peggy Nazario MD [address] [place] [address] PCP - GeneralFamily Medicine02/08/23Team MemberRelationshipSpecialtyStart DateEnd Date Peggy Nazario [address] [place] [address] [facility] Axolwujp24/11/23 Micheline Sorto MD [address] [place] [id number] SurgeonCardiac Surg07/24/23 Johan Henriquez MD [facility] [address] [facility] [place] [address] PsktirjyfqpgWzzfrrdmna83/11/23 Alea Harley MD [address] [place] [id number] Gqhfydlqol30/15/23 Alea Harley MD [address] [place] [address] Primary Staff PhysicianCardiology08/23/23Team MemberRelationshipSpecialtyStart DateEnd Date Peggy Nazario [address] [place] [address] PCP - GeneralFamily Wwuouaot10/11/23 Micheline Sorto MD [address] [place] [address] SurgeonCardiac Surg07/24/23 Johan Henriquez MD [address] [place] [address] HbysshxcjgftOkeypkjdtl87/11/23 Alea Harley MD [address] [facility] [place], [place] [id number] Hazwpaaiym62/15/23 Alea Harley MD [address] [facility] [place] [address] Primary Staff PhysicianCardiology08/23/23Team MemberRelationshipSpecialtyStart DateEnd Date Peggy Nazario [address] [place] [address] PCP - GeneralFamily Lammuuip53/11/23 Micheline Sorto MD [address] [place] [address] SurgeonCardiac Surg07/24/23 Johan Henriquez MD [address] [place] [address] WbuwayqaabveAjeoyfhqsa89/11/23 Alea Harley MD [address] [facility] [place] [address] Ueluksguiu46/15/23 Alea Harley MD [address] [place] [address] Primary Staff PhysicianCardiology08/23/23Te MemberRelationshipSpecialtyStart DateEnd Date Peggy Nazario [address] [place] [id number] [facility] Puqpgjtj80/11/23 Micheline Sorto MD [address] [place] [address] SurgeonCardiac Surg07/24/23 Johan Henriquez MD [address] [place] [address] MssbtemqxrdpSibtczyuen59/11/23 Alea Harley MD [address] [place] [address] Mriqqixvfs44/15/23 Alea Harley MD [address] [place] [address] Primary Staff PhysicianCardiology08/23/23Te MemberRelationshipSpecialtyStart DateEnd Date Peggy Nazario [address] [place] [address] [facility] Smmotway72/11/23 Micheline Sorto MD [address] [place] [address] SurgeonCardiac Surg07/24/23 Johan Henriquez MD [address] [place] [address] DwllgcsfmoceJaybzwbupr93/11/23 Alea Harley MD [address] [place] [address] Hjqqpiiubp33/15/23 Alea Harley MD [address] [place] [address] Primary Staff PhysicianCardiology08/23/23Team MemberRelationshipSpecialtyStart DateEnd Date Peggy Nazario [address] [place] [address] [facility] Huvovxmm03/11/23 Micheline Sorto MD [address] [place] [address] SurgeonCardiac Surg07/24/23 Johan Henriquez MD [address] [place] [address] BddfizkbfxlhWksijoloen32/11/23 Alea Harley MD [address] [place] [address] Iruiyhbcfl91/15/23 Alea Harley MD [address] [address] Primary Staff PhysicianCardiology08/23/23Team MemberRelationshipSpecialtyStart DateEnd Date Peggy Nazario [address] [place] [address] PCP - GeneralFamily Syrsftoj36/11/23 Micheline Sorto MD [address] [place] [address] SurgeonCardiac Surg07/24/23 Johan Henriquez MD [address] [place] [address] UhpqvbyugxlbHlpazbxnld27/11/23 Alea Harley MD [address] [facility] [place] [address] Otmtwlxjho74/15/23 Alea Harley MD [address] [facility] [place] [address] Primary Staff PhysicianCardiology08/23/23Team MemberRelationshipSpecialtyStart DateEnd Date Peggy Nazario [address] [place] [address] PCP - GeneralFamily Qsnddrfu37/11/23 Micheline Sorto MD [address] [place] [address] SurgeonCardiac Surg07/24/23 Johan Henriquez MD [address] [place] [address] QprokbmjumuzMplemgilsb10/11/23 Alea Harley MD [address] [facility] [place] [address] Xdrqxwhepz26/15/23 Alea Harley MD [address] [address] Primary Staff PhysicianCardiology08/23/23Team MemberRelationshipSpecialtyStart DateEnd Peggy Nazario MD [address] [place] [address] PCP - O [facility]01/05/23 Hannah Brian MD [address] [place] [address] PCP - [facility]11/03/23Te MemberRelationshipSpecialtyStart DateEnd Peggy Nazario MD [address] [place] [address] [facility] - [facility]01/05/23 Hannah Brian MD [address] [place] [address] PCP - [facility]11/03/23Te MemberRelationshipSpecialtyStart DateEnd Peggy Nazario MD [address] [place] [address] PCP - [facility]01/05/23 Hannah Brian MD [address] [place] [address] PCP - [facility]11/03/23Te MemberRelationshipSpecialtyStart DateEnd Peggy Nazario MD [address] [place] [id number] PCP - [facility]01/05/23 Hannah Brian MD [address] [place] [id number] PCP - [facility]11/03/23Te MemberRelationshipSpecialtyStart DateEnd Peggy Nazario MD [address] [place] [id number] PCP - [facility]01/05/23 Hannah Brian MD [address] [place] [address] PCP - [facility]11/03/23Te MemberRelationshipSpecialtyStart DateEnd Peggy Nazario MD [address] [place] [address] PCP - [facility]01/05/23 Hannah Brian MD [address] [place] [address] PCP - [facility]11/03/23Te MemberRelationshipSpecialtyStart DateEnd Peggy Nazario MD [address] [place] [address] PCP - [facility]01/05/23 Hannah Brian MD [address] [place] [address] [facility]11/03/23Te MemberRelationshipSpecialtyStart DateEnd Peggy Nazario MD [address] [place] [address] PCP - [facility]01/05/23 Peggy Nazario MD [address] [place] [address] PCP - GeneralFamily Medicine02/08//Team MemberRelationshipSpecialtyStart DateEnd Peggy Nazario MD [address] [place] [address] PCP - [facility] Reach01/05/23 Hannah Brian MD [address] [place] [address] PCP - [facility]11/03/23Team MemberRelationshipSpecialtyStart DateEnd Peggy Nazario MD [address] [place] [address] PCP - O [facility]01/05/23 Hannah Brian MD [address] [place] [address] PCP - [facility]11/03/23Team MemberRelationshipSpecialtyStart DateEnd Peggy Nazario MD [address] [place] [address] PCP - [facility] Re[facility]01/05/23 Hannah Brian MD [address] [place] [address] PCP - [facility]11/03/23Team MemberRelationshipSpecialtyStart DateEnd Peggy Nazario MD [address] [place] [address] PCP - [facility]01/05/23 Hannah Brian MD [address] [place] [address] PCP - [facility]11/03/23Team MemberRelationshipSpecialtyStart DateEnd Peggy Nazario MD [address] [place] [address] PCP - [facility]01/05/23 Hannah Brian MD [address] [place] [address] PCP - [facility]11/03/23Te MemberRelationshipSpecialtyStart DateEnd Peggy Nazario MD [address] [place] [address] PCP - [facility]01/05/23 Hannah Brian MD [address] [place] [address] PCP - [facility]11/03/23Te MemberRelationshipSpecialtyStart End Peggy Nazario MD [address] [place] [address] PCP - [facility]01/05/23 Hannah Brian MD [address] [place] [address] PCP - [facility]11/03/23Te MemberRelationshipSpecialtyStart DateEnd Peggy Nazario MD [address] [place] [address] PCP - [facility]01/05/23 Hannah Brian MD [address] [place] [address] [facility] - [facility]11/03/23Team MemberRelationshipSpecialtyStart End Peggy Nazario MD [address] [place] [address] PCP - [facility]01/05/23 Hannah Brian MD [address] [place] [address] PCP - [facility]11/03/23Team MemberRelationshipSpecialtyStart DateEnd Peggy Nazario MD [address] [place] [address] PCP - [facility]01/05/23 Hannah Brian MD [address] [place] [address] PCP - [facility]11/03/23Te MemberRelationshipSpecialtyStart End Peggy Nazario MD [address] [place] [address] PCP - [facility]01/05/23 Hannah Brian MD [address] [place] [address] [facility]/03/23Team MemberRelationshipSpecialtyStart End Peggy Nazario MD [address] [place] [address] PCP - ACO [facility]01/05/23 Hannah Brian MD [address] [place] [address] PCP - [facility]11/03/23Team MemberRelationshipSpecialtyStart DateEnd Date Peggy Nazario MD [address] [place] [address] PCP - ACO [facility]01/05/23 Hannah Brian MD [address] [place] [address] PCP - [facility]11/03/23 Source Comments (unrecognize d section and content) In the event this informatio n is protected by the Federal Confidentiality of Alcohol and Drug Abuse Patient Records regulations: The Federal rules restrict any use of the information to criminally investigate or prosecute any alcohol or drug abuse patient.[facility] HospitalIn the event this information is protected by the Federal Confidentiality of Alcohol and Drug Abuse Patient Records regulations: The Federal rules restrict any use of the information to criminally investigate or prosecute any alcohol or drug abuse patient.[facility] HospitalIn the event this information is protected by the Federal Confidentiality of Alcohol and Drug Abuse Patient Records regulations: The Federal rules restrict any use of the information to criminally investigate or prosecute any alcohol or drug abuse patient.[facility] HospitalIn the event this information is protected by the Federal Confidentiality of Alcohol and Drug Abuse Patient Records regulations: The Federal rules restrict any use of the information to criminally investigate or prosecute any alcohol or drug abuse patient.[facility] HospitalIn the event this information is protected by the Federal Confidentiality of Alcohol and Drug Abuse Patient Records regulations: The Federal rules restrict any use of the information to criminally investigate or prosecute any alcohol or drug abuse patient.[facility] HospitalIn the event this information is protected by the Federal Confidentiality of Alcohol and Drug Abuse Patient Records regulations: The Federal rules restrict any use of the information to criminally investigate or prosecute any alcohol or drug abuse patient.[facility] HospitalIn the event this information is protected by the Federal Confidentiality of Alcohol and Drug Abuse Patient Records regulations: The Federal rules restrict any use of the information to criminally investigate or prosecute any alcohol or drug abuse patient.[facility] HospitalIn the event this information is protected by the Federal Confidentiality of Alcohol and Drug Abuse Patient Records regulations: The Federal rules restrict any use of the information to criminally investigate or prosecute any alcohol or drug abuse patient.[facility] HospitalIn the event this information is protected by the Federal Confidentiality of Alcohol and Drug Abuse Patient Records regulations: The Federal rules restrict any use of the information to criminally investigate or prosecute any alcohol or drug abuse patient.[facility] HospitalIn the event this information is protected by the Federal Confidentiality of Alcohol and Drug Abuse Patient Records regulations: The Federal rules restrict any use of the information to criminally investigate or prosecute any alcohol or drug abuse patient.[facility] HospitalIn the event this information is protected by the Federal Confidentiality of Alcohol and Drug Abuse Patient Records regulations: The Federal rules restrict any use of the information to criminally investigate or prosecute any alcohol or drug abuse patient.[facility] HospitalIn the event this information is protected by the Federal Confidentiality of Alcohol and Drug Abuse Patient Records regulations: The Federal rules restrict any use of the information to criminally investigate or prosecute any alcohol or drug abuse patient.[facility] HospitalIn the event this information is protected by the Federal Confidentiality of Alcohol and Drug Abuse Patient Records regulations: The Federal rules restrict any use of the information to criminally investigate or prosecute any alcohol or drug abuse patient.[facility] HospitalIn the event this information is protected by the Federal Confidentiality of Alcohol and Drug Abuse Patient Records regulations: The Federal rules restrict any use of the information to criminally investigate or prosecute any alcohol or drug abuse patient.[facility] HospitalIn the event this information is protected by the Federal Confidentiality of Alcohol and Drug Abuse Patient Records regulations: The Federal rules restrict any use of the information to criminally investigate or prosecute any alcohol or drug abuse patient.[facility] Reason for Visit (unrecogniz ed section and content) ReasonCommentsInsurance InquiryReasonCommentsMed RefillReasonCommentsMedication ProblemReasonCommentsFollow UpReasonCommentsConsultReasonCommentsResultsReason CommentsCystoscopy-1ReasonCommentsPatient UpdateSpecialtyDiagnoses / Procedures Referred By ContactReferred To ContactACADIA [facility] INPATIENT Diagnoses Decompensated heart failure (HCC) Mitral valve regurgitation due to cardiomyopathy (HCC) Decompensated heart failure (HCC) Procedures [address] [place] [address] IP/OBS CARE HIGH MDM 75 MINUTES MEDICATION MANAGEMENT CONSULTS [facility] [address] [place] [id number] Referral IDStatusReasonStart DateExpiration DateVisits RequestedVisits [id number] RequestReasonCommentsFollow UpReason CommentsCystoscopy-1Patient EducationReasonCommentsGynecologic ExamMedicare off year.LMP: MIR SHEFFIELD 1983HRT: NoneLast pap 07-24-23 neg.Last mammogram 12-05-22 [facility]. Not sure when she can do it d/t cardiac issues.Denies breast, urinary, or bowel concerns.ReasonCommentsUrinary FrequencyReasonOnset DateCommentsMed Refill 09/20/2024ReasonCommentsFollow-upReasonCommentsNauseaCoughConjunctivitisReason CommentsRight Flank PainUrinary FrequencydysuriaReasonOnset DateCommentsMed Vmqkct5701/13/2025ReasonCommentsER Follow-upReasonCommentsImmunizationsDeclines at this timeUTIReasonOnset EyhgOexylehkSxibw19/06/2025On callReasonCommentsUTI ImmunizationsDeclines at this timeReasonCommentsImmunizationsDeclines at this time Inactive Administered Medications - up to 3 most recent administrations Administered Medications (un recognized section and content) Medication OrderMAR ActionAction DateDoseRateSite nitrofurantoin monohydrate and macrocrystal 100 mg cap(s) (MACROBID) 100 mg, ORAL, ONCE, 1 dose, On 10/15/23 at 2100, Swallow whole; DO NOT crush, chew, or open., Antimicrobial indication: Empiric Given10/16/2023 8:28 AM [id number] mgOral FOR RECORDS PERTAINING TO PATIENTS WHO [...] BE BASED ON THE PRIMARY CLINICAL RECORDS. [employer] provides no warranty or guarantee of the accuracy or completeness of information in this document.
[2025-06-03 16:22] LABS: Hematocrit 37.0 % (36.0-48.0); Hemoglobin 12.3 g/dL (12.0-16.0)
--- NOTE | 2025-06-03 17:02 | PM.CACN ---
History of Present Illness History of Present Illness Consult date: 06/03/25 Requesting physician: Ana Mtz Chief complaint: HEMHROIDS HURTING HER, COLITIS Narrative: Asya Asencio is a 75 y/o F known to CT cardiology. She recently underwent a transcatheter sjpp-wf-iech repair on her tricuspid valve on 05/27/2025 at [facility]. She also has a hx of mitral regurg s/p ANA earlier this year, C. difficile, pacemaker in place, anxiety, A-fib s/p AVN ablation, chronic HFrEF s/p BiV-ICD. She presented to [facility] this AM with c/o rectal bleeding. She had also came to the ER the day before with c/o hemorrhoid bleeding along with night sweats, weakness and fever. She notes this AM her bleeding was more significant which is why she came back to the ER. CT abd noted to have colitis, she also tested positive for c.diff. Pt had trouble urinating and a alicia was placed - she is very concerned about this. She states she is feeling well from a cardiac standpoint. She denies c/o CP, dyspnea, orthopnea, PND, LE edema, dizziness/LH, palpitations. Cardiology was consulted to discuss AC management. Review of Systems ROS Status of ROS 10 or more systems reviewed and unremarkable except as noted in history and below Constitutional Reports: fever and night sweats Gastrointestinal Reports: blood in stool [facility] Medical History (Updated 06/03/25 @ 07:20 by Treva Buitrago, ROCÍO) C. difficile diarrhea ?A04.72 - Enterocolitis due to Clostridium difficile, not specified as recurrent (ICD-10) Anxiety ?F41.9 - Anxiety disorder, unspecified (ICD-10) Endometriosis ?N80.9 - Endometriosis, unspecified (ICD-10) Pacemaker ?Z95.0 - Presence of cardiac pacemaker (ICD-10) Surgical History (Updated 06/03/25 @ 07:19 by Treva Buitrago, ROCÍO) History of cataract surgery ?Z98.49 - Cataract extraction status, unspecified eye (ICD-10) History of hysterectomy ?Z90.710 - Acquired absence of both cervix and uterus (ICD-10) H/O cardiac ablation ?Z98.890 - Other specified postprocedural states (ICD-10) Status post implantation of mitral valve leaflet clip ?Z98.890 - Other specified postprocedural states (ICD-10) ?Z95.818 - Presence of other cardiac implants and grafts (ICD-10) S/P insertion of tricuspid valve leaflet clip ?Z95.818 - Presence of other cardiac implants and grafts (ICD-10) Family History (Updated 06/03/25 @ 06:35 by Treva Buitrago RN) Mother Family history of CHF (congestive heart failure) Family history of diabetes mellitus Sister Atrial fibrillation Social History (Updated 06/03/25 @ 06:36 by Treva Buitrago RN) Within the past year, how often did you have a drink containing alcohol: monthly or less Within the past year, how many standard drinks containing alcohol did you have on a typical day: 1 or 2 Within the past year, how often did you have six or more drinks on one occasion: never Total score: 0 Score interpretation: A score less than 3 is consistent with normal alcohol consumption. Smoking status: Former smoker Non-prescribed substance use: denies use Highest level of school completed/degree received: 9th grade Are you now , , , , never or living with a partner: Little interest or pleasure in doing things: not at all Feeling down, depressed, or hopeless: not at all Feel stressed/tense/nervous/anxious/difficulty sleeping: not at all Do you think of yourself as: straight/heterosexual Gender Identity: female Meds Home Medications and Allergies Home Medications ?Medication ?Instructions ?Recorded ?Confirmed ?Type atorvastatin 40 mg tablet 40 mg PO .QHS 10/15/23 06/03/25 History lorazepam 0.5 mg tablet 0.5 mg PO TID PRN anxiety 10/15/23 06/03/25 History spironolactone 25 mg tablet 12.5 mg PO DAILY 10/15/23 06/03/25 History apixaban 5 mg tablet (Eliquis) 5 mg PO BID 06/01/24 06/03/25 History carvedilol 6.25 mg tablet 6.25 mg PO BID 01/19/25 06/03/25 History famotidine 20 mg tablet 20 mg PO .QHS 06/02/25 06/03/25 History Allergies Allergy/AdvReac Type Severity Reaction Status Date / Time meperidine (From Demerol) Allergy Intermediate Agitated Verified 06/02/25 10:58 Exam Constitutional Vital Signs, click to edit/add: Last Vital Signs Temp 97.9 F 06/03/25 15:23 Pulse 70 06/03/25 15:23 Resp 16 06/03/25 15:23 BP 127/69 06/03/25 15:23 Pulse Ox 95 06/03/25 15:23 O2 Del Method Room Air 06/03/25 15:23 Documenting provider has reviewed patient's vital signs: yes Common normals: no apparent distress, oriented x3 and alert HENMT Common normals: normocephalic and head/scalp atraumatic Eye Common normals: EOMs intact bilaterally and conjunctivae normal Neck & C-Spine Common normals: supple and no JVD Respiratory Common normals: normal respiratory effort, no use of accessory muscles and clear to auscultation bilaterally Cardio Common normals: regular rate, regular rhythm, S1 normal heart sound and no murmurs Peripheral pulses: posterior tibial pulses present and dorsalis pedis pulses present Other: Right groin with small palpable hematoma, resolving ecchymosis, +tenderness with palpation GI Auscultation: normoactive bowel sounds Palpation: soft and tender Bladder/kidney exam: catheter in place Extremity Common normals: normal to inspection and no clubbing, cyanosis or edema Neuro Common normals: oriented x3 and moves all extremities Sensorium/orientation: alert Psych Common normals: mental status grossly normal and cooperative Results Labs and Meds Lab results: CBC 06/03/25 06/03/25 06/03/25 Range/Units 00:10 09:46 16:12 WBC 12.1 H (4.0-11.0) 10^3/uL RBC 4.41 (4.20-5.40) 10^6/uL Hgb 13.2 13.2 12.3 (12.0-16.0) g/dL Hct 40.2 40.9 37.0 (36.0-48.0) % Plt Count 196 (150-450) 10^3/uL Neut # (Auto) 10.3 H (1.4-6.5) 10^3/uL Lymph # (Auto) 1.1 L (1.2-3.8) 10^3/uL Mcintosh # (Auto) 0.7 (0.3-0.8) 10^3/uL Eos # (Auto) 0.0 (0.0-0.7) 10^3/uL Baso # (Auto) 0.0 (0.0-0.1) 10^3/uL Comprehensive Metabolic Panel 06/03/25 Range/Units 00:10 Sodium 133 L (136-145) mmol/L Potassium 3.9 (3.5-5.1) mmol/L Chloride 97 L (98-107) mmol/L Carbon Dioxide 29.0 (21.0-32.0) mmol/L BUN 18.0 (7.0-18.0) mg/dL Creatinine 1.07 H (0.55-1.02) mg/dL Glucose 127 H (74-106) mg/dL Calcium 9.4 (8.5-10.1) mg/dL Intake and Output 06/03/25 06/03/25 06/03/25 07:59 15:59 23:59 Intake Total 340 / 340 Balance 340 / 340 Intake: Oral 240 / 240 IV 100 / 100 Metronidazole/Sodium Chloride 100 / 100 500 mg In 100 ml @ 100 mls/hr IV Q8H [facility] Rx#:[id number] Other: Weight 57.3 kg Imaging and Cardiology Echo: other (ECHO 05/28/25: EF 50%, normal right sided pressures, evidence of MitraClip with trivial MR, evidence of TriClips with trivial to mild regurg) Assessment and Plan Assessment and Plan (1) Colitis: (2) Hematuria: Plan #Colitis #GI bleeding #C.diff -Hgb dropped from 13.2 to 12.3. -Treatment of infection per primary team. #A.fib s/p AVN ablation -Currently on Eliquis 5mg BID. -We have discussed the option of a LAAO/Watchman implant given her ongoing issues with blood thinners. Given this bleeding event, will discuss with Dr. Robins about changing to an antiplatelet. See below. #Tricuspid regurg s/p ANA 05/27/2025 #Mitral regurg s/p ANA -She is currently admitted with GI bleeding/colitis/c.diff. Discussed with Dr. Robins, radhaay to hold Eliquis at this time until bleeding resolves. She should be on ASA 81mg daily while off of Eliquis. Once bleeding resolves, resume Eliquis and stop ASA. #Chronic HFrEF with recovered EF -She appears compensated on exam -Continue current medications. Follow-up with CT Cardiology as scheduled next week. Please let us know if any further questions or concerns. Thank you. Niecy Mazariegos APRN-SUPERVISOR NURSE [facility] Cardiovascular Medicine
[2025-06-03 21:56] LABS: Hematocrit 37.3 % (36.0-48.0); Hemoglobin 12.2 g/dL (12.0-16.0)
[2025-06-03] MEDS: FAMOTIDINE 20 MG TABLET PO (22:05)
[2025-06-03] MEDS: ATORVASTATIN CALCIUM 40 MG TABLET PO (22:05)
[2025-06-03] MEDS: CARVEDILOL 6.25 MG TABLET PO (22:05)
[2025-06-04] VITALS (16 sets, daily range): BP systolic 121–148; BP diastolic 63–71; PULSE 70–84; TEMP 36.4–37.4; O2SAT 92–96
[2025-06-04] MEDS: METOCLOPRAMIDE HCL 10 MG/2 ML VIAL 5 MG IVP (03:10)
[2025-06-04] MEDS: LORAZEPAM 0.5 MG TABLET PO ×3 (05:07→22:16)
[2025-06-04] MEDS: METRONIDAZOLE/SODIUM CHLORIDE 500 MG/100 ML PREMIX 100 MG IV ×3 (05:07→22:03)
[2025-06-04] MEDS: VANCOMYCIN HCL 7,500 MG/150 ML BOTTLE 125 MG PO ×4 (05:08→22:01)
[2025-06-04 05:24] LABS: Hematocrit 38.4 % (36.0-48.0); Hemoglobin 12.5 g/dL (12.0-16.0); Immature Granulocytes Abs Auto 0.02 10^3/uL (0.00-0.03); Immature Granulocytes Pct Auto 0.3 % (0.0-0.5); Lymphocytes Absolute Auto 1.1 10^3/uL (1.2-3.8); Mean Corpuscular HGB Conc 32.6 g/dL (29.9-35.2); Mean Corpuscular Hemoglobin 29.9 pg (26.7-34.0); Mean Corpuscular Volume 91.9 fL (81.0-99.0); Platelet Count 166 10^3/uL (150-450); Red Blood Count 4.18 10^6/uL (4.20-5.40); White Blood Count 5.8 10^3/uL (4.0-11.0)
[2025-06-04 05:40] LABS: Alanine Aminotransferase 27 U/L (14-59); Albumin Globulin Ratio 1.1; Albumin Level 3.0 g/dL (3.4-5.0); Alkaline Phosphatase 62 U/L (46-116); Anion Gap 9.4; Aspartate Amino Transferase 20 U/L (15-37); Blood Urea Nitrogen 8.0 mg/dL (7.0-18.0); Calcium 8.6 mg/dL (8.5-10.1); Carbon Dioxide 26.7 mmol/L (21.0-32.0); Chloride 106 mmol/L (98-107); Estimated GFR (African America >60 (>=60 mL/min/1.73m^2); Estimated GFR (Non-African Ame >60 (>=60 mL/min/1.73m^2); Globulin 2.8 g/dL; Glucose 94 mg/dL (74-106); Potassium 4.1 mmol/L (3.5-5.1); Sodium 138 mmol/L (136-145); Total Protein 5.8 g/dL (6.4-8.2)
--- NOTE | 2025-06-04 09:00 | CM.NOTE ---
Rounds made with Dr. Mtz, discussed plan of care with pt. No discharge today, possible discharge tomorrow. Pt c/o weakness will have PT and OT evaluate pt for discharge planning.
[2025-06-04] MEDS: CARVEDILOL 6.25 MG TABLET PO ×2 (09:05→22:02)
[2025-06-04] MEDS: ENOXAPARIN SODIUM 60 MG/0.6 ML SYRINGE SUBQ ×2 (09:05→22:02)
--- NOTE | 2025-06-04 10:11 | P.PN_ITS ---
Progress Note: Subjective Subjective Interval history: Patient seen and examined at bedside. States that she did have some abdominal cramping and nausea overnight. However did have a bowel movement as per nursing team today, that was watery but no blood in it. Patient denies any melena or hematochezia or hemoptysis or hematemesis herself as well. Labs showing improvement in her renal function as well as stability in her hemoglobin while on Lovenox. Exam Narrative Exam Narrative: General:The patient appears well and in no apparent distress.Patient is resting comfortably in bed but slightly anxious Skin:Warm, dry, no pallor noted.There is no rash noted. Head:Normocephalic, atraumatic Eye: Normal conjunctiva, no drainage Ears, Nose, Mouth, and Throat: oral mucosa is moist. Nares patent. Cardiovascular: Not tachycardic Respiratory:Patient is in no distress, no accessory muscle use, lungs are clear to auscultation, no wheezing, rales or rhonchi Back:non-tender GI: Soft and nontender. I did a QIANA in the presence of a female assistant press operator after getting the patient's consent, patient does have skin tag outside as well as internal hemorrhoids I could feel. Did have slight brown stool on my digital exam Musculoskeletal: The patient has no evidence of calf tenderness, no pitting edema, symmetrical pulses noted bilaterally Neurological: Awake and alert, no focal deficits, cranial nerves II to XII are intact Constitutional Vital Signs, click to edit/add: Last Vital Signs Temp 99.4 F 06/04/25 07:09 Pulse 74 06/04/25 09:58 Resp 18 06/04/25 07:09 BP 121/70 06/04/25 07:09 Pulse Ox 94 L 06/04/25 07:09 O2 Del Method Room Air 06/04/25 07:09 Progress Note: Objective Labs Labs: Short CBC 06/03/25 06/03/25 06/04/25 Range/Units 16:12 21:47 05:02 WBC 5.8 (4.0-11.0) 10^3/uL Hgb 12.3 12.2 12.5 (12.0-16.0) g/dL Hct 37.0 37.3 38.4 (36.0-48.0) % Plt Count 166 (150-450) 10^3/uL BMP 06/04/25 05:02 Sodium 138 Potassium 4.1 Chloride 106 Carbon Dioxide 26.7 BUN 8.0 Creatinine 0.76 Glucose 94 Calcium 8.6 Liver Function 06/04/25 Range/Units 05:02 Total Bilirubin 1.1 H (0.2-1.0) mg/dL AST 20 (15-37) U/L ALT 27 (14-59) U/L Alkaline Phosphatase 62 (46-116) U/L Albumin 3.0 L (3.4-5.0) g/dL Progress Note: A&P Assessment and Plan (1) Colitis: (2) Hematuria: Plan Hematochezia likely in the setting of colitis, C. difficile confirmed Diverticular bleed is less likely given the patient's hemodynamic stability, internal hemorrhoids could be another reason This is exacerbated by anticoagulation use on Eliquis however he H&H are still A-fib on anticoagulation s/p tricuspid valve repair - Admit patient to medical floor - Obtain H&H every 12 hours for today - Place the patient on Lovenox 1 mg/kg twice daily just in case hemoglobin drops or the patient become hemodynamically unstable - Consult cardiology for further assistance - C. difficile workup is pending - Discussed the plan with the patient she is in agreement with the plan - She is full code admitted at discharge - Continuing IV metronidazole and p.o. vancomycin for now - Patient was asking to get her lorazepam restarted which I did right after I s aw her 06/04/2025 I reviewed with the patient her positive C. difficile results just like yesterday. Patient to be maintained on p.o. vancomycin as well as IV metronidazole for now. Discussed the plan with her in details. I ordered PT/OT consult as well. Hemoglobin has been stable so concern for lower GI bleed is very unlikely. I discussed the plan with her in details. Answered all her ques tions. I will switch her tomorrow to p.o. Eliquis. Voiding trial will be started today as well Urinary Catheter Management Urinary Catheter Management Urethral: Cath placed during this visit: yes Urethral indwelling: Yes Reason for continuing: not indwelling catheter Insertion date: 06/03/25 Insertion time: 02:17
[2025-06-04] MEDS: MAGNESIUM SULFATE/D5W 1 GM/100 ML PREMIX IV (11:19)
--- NOTE | 2025-06-04 12:47 | SWNOTE1 ---
SW reviewed therapy notes and pt has no therapy needs at discharge.
[2025-06-04] MEDS: 0.9 % SODIUM CHLORIDE 250 ML 10 ML IV (14:19)
[2025-06-04] MEDS: ATORVASTATIN CALCIUM 40 MG TABLET PO (22:03)
[2025-06-04] MEDS: FAMOTIDINE 20 MG TABLET PO (22:03)
[2025-06-05] VITALS (18 sets, daily range): BP systolic 131–153; BP diastolic 62–78; PULSE 68–76; TEMP 36.5–37.9; O2SAT 91–98
[2025-06-05] MEDS: HYDROMORPHONE HCL 0.5 MG/0.5 ML SYRINGE IV (03:23)
[2025-06-05] MEDS: CALCIUM CARBONATE 500 MG (200MG ELEMENTAL) TAB CHEW PO (03:23)
[2025-06-05] MEDS: METOCLOPRAMIDE HCL 10 MG/2 ML VIAL 5 MG IVP (03:23)
[2025-06-05] MEDS: METRONIDAZOLE/SODIUM CHLORIDE 500 MG/100 ML PREMIX 100 MG IV ×3 (05:06→21:17)
[2025-06-05] MEDS: VANCOMYCIN HCL 7,500 MG/150 ML BOTTLE 125 MG PO ×4 (05:33→21:18)
[2025-06-05 05:37] LABS: Hematocrit 38.3 % (36.0-48.0); Hemoglobin 12.2 g/dL (12.0-16.0); Immature Granulocytes Abs Auto 0.01 10^3/uL (0.00-0.03); Immature Granulocytes Pct Auto 0.2 % (0.0-0.5); Lymphocytes Absolute Auto 0.9 10^3/uL (1.2-3.8); Mean Corpuscular HGB Conc 31.9 g/dL (29.9-35.2); Mean Corpuscular Hemoglobin 29.8 pg (26.7-34.0); Mean Corpuscular Volume 93.6 fL (81.0-99.0); Platelet Count 171 10^3/uL (150-450); Red Blood Count 4.09 10^6/uL (4.20-5.40); White Blood Count 5.1 10^3/uL (4.0-11.0)
[2025-06-05 05:57] LABS: Alanine Aminotransferase 29 U/L (14-59); Albumin Globulin Ratio 1.1; Albumin Level 3.2 g/dL (3.4-5.0); Alkaline Phosphatase 79 U/L (46-116); Anion Gap 10.7; Aspartate Amino Transferase 24 U/L (15-37); Blood Urea Nitrogen 10.0 mg/dL (7.0-18.0); Calcium 8.7 mg/dL (8.5-10.1); Carbon Dioxide 27.4 mmol/L (21.0-32.0); Chloride 104 mmol/L (98-107); Estimated GFR (African America >60 (>=60 mL/min/1.73m^2); Estimated GFR (Non-African Ame >60 (>=60 mL/min/1.73m^2); Globulin 3.0 g/dL; Glucose 96 mg/dL (74-106); Magnesium 2.1 mg/dL (1.8-2.4); Potassium 4.1 mmol/L (3.5-5.1); Sodium 138 mmol/L (136-145); Total Protein 6.2 g/dL (6.4-8.2)
[2025-06-05] MEDS: LORAZEPAM 0.5 MG TABLET PO ×3 (07:24→21:20)
[2025-06-05] MEDS: ENOXAPARIN SODIUM 60 MG/0.6 ML SYRINGE SUBQ (08:42)
[2025-06-05] MEDS: CARVEDILOL 6.25 MG TABLET PO ×2 (08:42→21:17)
[2025-06-05] MEDS: PROCHLORPERAZINE 10 MG/2 ML VIAL 5 MG IV ×2 (08:42→17:07)
--- NOTE | 2025-06-05 09:09 | SWNOTE1 ---
2nd notice of Important Message from Medicare reviewed and discussed with pt. No questions or concerns at this time.
--- NOTE | 2025-06-05 11:47 | CM.NOTE ---
Addendum entered by Emani Deshpande 06/06/25 11:44: Rounded with Dr. Puente not Dr. Mtz. Original Note: Rounds made with Dr. Mtz, discussed plan of care with pt. No discharge today, possible discharge tomorrow.
--- NOTE | 2025-06-05 12:01 | PM.PN ---
Progress Note: Subjective Subjective Interval history: Patient seen and examined at bedside. Did have nausea and vomiting overnight. Patient states that she is not anxious and she just feels that when she gets her vancomycin p.o. she has no symptoms. She does not feel ready to be discharged today as she needs a ride home as well as she may need to drive herself. Exam Narrative Exam Narrative: General:The patient appears well and in no apparent distress.Patient is resting comfortably in bed but slightly anxious Skin:Warm, dry, no pallor noted.There is no rash noted. Head:Normocephalic, atraumatic Eye: Normal conjunctiva, no drainage Ears, Nose, Mouth, and Throat: oral mucosa is moist. Nares patent. Cardiovascular: Not tachycardic Respiratory:Patient is in no distress, no accessory muscle use, lungs are clear to auscultation, no wheezing, rales or rhonchi Back:non-tender GI: Soft and nontender. I did a QIANA in the presence of a female reservation agent after getting the patient's consent, patient does have skin tag outside as well as internal hemorrhoids I could feel. Did have slight brown stool on my digital exam Musculoskeletal: The patient has no evidence of calf tenderness, no pitting edema, symmetrical pulses noted bilaterally Neurological: Awake and alert, no focal deficits, cranial nerves II to XII are intact Constitutional Vital Signs, click to edit/add: Last Vital Signs Temp 97.7 F 06/05/25 07:33 Pulse 70 06/05/25 11:59 Resp 16 06/05/25 07:33 BP 132/70 06/05/25 07:33 Pulse Ox 94 L 06/05/25 07:33 O2 Del Method Room Air 06/05/25 07:33 Progress Note: Objective Labs Labs: Short CBC 06/05/25 Range/Units 04:51 WBC 5.1 (4.0-11.0) 10^3/uL Hgb 12.2 (12.0-16.0) g/dL Hct 38.3 (36.0-48.0) % Plt Count 171 (150-450) 10^3/uL BMP 06/05/25 04:51 Sodium 138 Potassium 4.1 Chloride 104 Carbon Dioxide 27.4 BUN 10.0 Creatinine 0.68 Glucose 96 Calcium 8.7 Liver Function 06/05/25 Range/Units 04:51 Total Bilirubin 0.7 (0.2-1.0) mg/dL AST 24 (15-37) U/L ALT 29 (14-59) U/L Alkaline Phosphatase 79 (46-116) U/L Albumin 3.2 L (3.4-5.0) g/dL Progress Note: A&P Assessment and Plan (1) Colitis: (2) Hematuria: Plan Hematochezia likely in the setting of colitis, C. difficile confirmed Diverticular bleed is less likely given the patient's hemodynamic stability, internal hemorrhoids could be another reason This is exacerbated by anticoagulation use on Eliquis however he H&H are still A-fib on anticoagulation s/p tricuspid valve repair - Admit patient to medical floor - Obtain H&H every 12 hours for today - Place the patient on Lovenox 1 mg/kg twice daily just in case hemoglobin drops or the patient become hemodynamically unstable - Consult cardiology for further assistance - C. difficile workup is pending - Discussed the plan with the patient she is in agreement with the plan - She is full code admitted at discharge - Continuing IV metronidazole and p.o. vancomycin for now - Patient was asking to get her lorazepam restarted which I did right after I saw her 06/04/2025 I reviewed with the patient her positive C. difficile results just like yesterday. Patient to be maintained on p.o. vancomycin as well as IV metronidazole for now. Discussed the plan with her in details. I ordered PT/OT consult as well. Hemoglobin has been stable so concern for lower GI bleed is very unlikely. I discussed the plan with her in details. Answered all her questions. I will switch her tomorrow to p.o. Eliquis. Voiding trial will be started today as well 06/05/2025 patient continues on p.o. vancomycin, I will not increase her Ativan as she is trying to come down on it and if she is to doing fairly well on it the dose of 0.5 mg every 8 hours as needed. I will order repeat CT abdomen pelvis however I think patient's getting ready for discharge possibly tomorrow. She is continue to be on p.o. vancomycin and IV metronidazole for today. She continues to be tolerating anticoagulation, no report episodes of hematochezia or melena today or yesterday or the day before. I will switch her Lovenox to p.o. Eliquis. Urinary Catheter Management Urinary Catheter Management Urethral: Cath placed during this visit: yes Urethral indwelling: Yes Reason for continuing: not indwelling catheter Insertion date: 06/03/25 Insertion time: 02:17
--- NOTE | 2025-06-05 12:03 | CT_ITS ---
[address] [address] Patient Name: HARJIT ULLOA MRN: [id number] date: 1950 Sex: F Assigned Patient Location: [place] Current Patient Location: Accession/Order Number: [id number] Exam Date: 06/05/2025 12:52 Report Date: 06/05/2025 13:31 At the request of: AUTUMN SILVERIO MD Procedure: CT abdomen pelvis wo con CT abdomen pelvis wo con 06/05/2025 1:02 PM SIGNS AND SYMPTOMS: Abdominal pain, nausea TECHNIQUE: Multidetector ct axial images of the abdomen and pelvis were obtained without IV contrast. Multiplanar reformats were performed and reviewed to further define anatomy and possible pathology. CT was performed with one or more of the following dose reduction techniques: Automated exposure control, adjustment of the mA and/or kV according to patient size, or use of iterative reconstruction technique. COMPARISON: 06/03/2025 FINDINGS: Lower Chest: There is cardiomegaly. There is atelectasis at the left lung base. ABDOMEN: Liver: Within normal limits. Bile Ducts: Normal caliber. Gallbladder: No calcified gallstones. Normal caliber wall. Pancreas: Within normal limits. Spleen: Within normal limits. Adrenals: Within normal limits. Kidneys: Within normal limits. Pelvis: Reproductive Organs: No pelvic masses. Ureters: Within normal limits. Bladder: Gas layers dependently in the bladder suspicious for cystitis secondary to a gas-forming organism. Bowel: There is evidence of anastomosis in the junction of the rectum and sigmoid colon suggesting prior partial colectomy. Mesenteric Lymph Nodes: No enlarged mesenteric lymph nodes. Peritoneum: No ascites or free air, no fluid collection. Vessels: Atherosclerotic changes are noted in the abdominal aorta and its branches. Retroperitoneum: Within normal limits. Abdominal Wall: Subcutaneous gas is noted suggesting subcutaneous medication injection along the intra-abdominal wall. Bones: Degenerative changes are noted in the lumbar spine. There are bilateral L5 pars defects without spondylolisthesis. CT/CT abdomen pelvis wo con IMPRESSION: Gas layers dependently within the bladder lumen suggesting cystitis secondary to a gas-forming organism. No bowel obstruction or obstructive uropathy. There is cardiomegaly. Impression dictated by: Cyrus Tran M.D. 06/05/2025 1:31 PM Dictation Location: [place] [address] Electronically authenticated by: [id number] Y Date: 06/05/2025 13:31
[2025-06-05] MEDS: ATORVASTATIN CALCIUM 40 MG TABLET PO (21:17)
[2025-06-05] MEDS: FAMOTIDINE 20 MG TABLET PO (21:18)
[2025-06-05] MEDS: APIXABAN 5 MG TABLET PO (21:18)
[2025-06-06] VITALS (7 sets, daily range): BP systolic 164–169; BP diastolic 72–80; PULSE 70–74; TEMP 36.5; O2SAT 91–94
[2025-06-06] MEDS: METRONIDAZOLE/SODIUM CHLORIDE 500 MG/100 ML PREMIX 100 MG IV (05:23)
[2025-06-06] MEDS: LORAZEPAM 0.5 MG TABLET PO ×2 (05:24→08:40)
[2025-06-06] MEDS: VANCOMYCIN HCL 7,500 MG/150 ML BOTTLE 125 MG PO ×2 (05:24→11:29)
[2025-06-06 05:51] LABS: Hematocrit 39.0 % (36.0-48.0); Hemoglobin 12.7 g/dL (12.0-16.0); Immature Granulocytes Abs Auto 0.02 10^3/uL (0.00-0.03); Immature Granulocytes Pct Auto 0.4 % (0.0-0.5); Lymphocytes Absolute Auto 0.9 10^3/uL (1.2-3.8); Mean Corpuscular HGB Conc 32.6 g/dL (29.9-35.2); Mean Corpuscular Hemoglobin 30.1 pg (26.7-34.0); Mean Corpuscular Volume 92.4 fL (81.0-99.0); Platelet Count 176 10^3/uL (150-450); Red Blood Count 4.22 10^6/uL (4.20-5.40); White Blood Count 5.1 10^3/uL (4.0-11.0)
[2025-06-06 06:14] LABS: Alanine Aminotransferase 41 U/L (14-59); Albumin Globulin Ratio 1.1; Albumin Level 3.2 g/dL (3.4-5.0); Alkaline Phosphatase 77 U/L (46-116); Anion Gap 12.2; Aspartate Amino Transferase 50 U/L (15-37); Blood Urea Nitrogen 7.0 mg/dL (7.0-18.0); Calcium 8.9 mg/dL (8.5-10.1); Carbon Dioxide 26.8 mmol/L (21.0-32.0); Chloride 106 mmol/L (98-107); Estimated GFR (African America >60 (>=60 mL/min/1.73m^2); Estimated GFR (Non-African Ame >60 (>=60 mL/min/1.73m^2); Globulin 2.8 g/dL; Glucose 98 mg/dL (74-106); Magnesium 1.9 mg/dL (1.8-2.4); Potassium 4.0 mmol/L (3.5-5.1); Sodium 141 mmol/L (136-145); Total Protein 6.0 g/dL (6.4-8.2)
[2025-06-06] MEDS: CARVEDILOL 6.25 MG TABLET PO (08:40)
[2025-06-06] MEDS: SPIRONOLACTONE 25 MG TABLET 12.5 MG PO (08:40)
[2025-06-06] MEDS: APIXABAN 5 MG TABLET PO (08:40)
--- NOTE | 2025-06-06 09:30 | CM.NOTE ---
Rounds made with Dr. Mtz. Patient ready for discharge. Follow up appts made. Patient will be discharged home today.
--- NOTE | 2025-06-06 10:53 | PM.DS1 ---
DS: Providers Provider Date of admission: 06/03/25 05:22 Primary care physician: TANESHA HOOVER Consults: 06/03/25 10:29 Consult to Cardiology Routine Reason for consultation: anticoagulation, hemorrhoid vs lower gi bleed 06/04/25 09:16 Occupational Therapy Eval and Treat Routine Reason for consultation: weakness Physical Therapy Eval and Treat Routine Reason for consultation: weakness DS: Diagnosis Discharge Diagnosis (1) Colitis: (2) Hematuria: Plan Acute C. difficile colitis Diverticular bleed is less likely given the patient's hemodynamic stability, internal hemorrhoids could be another reason This is exacerbated by anticoagulation use on Eliquis however he H&H are still A-fib on anticoagulation s/p tricuspid valve repair DS: Summary Hospital Course Hospital Course: This is a 75-year-old female with past medical history of C. 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 Initially came to the ED for night sweats, weakness, and fever along with some urinary symptoms. She did have constipation at the time, all of the lab work was nonrevealing and patient was sent on bowel regimen. Patient states that as soon as she got home she had abdominal pain described as cramps and contractions followed by multiple bouts of blood with some stools in it. The blood was bright blood. She thought initially it was her hemorrhoids however this happened like for a few episodes that decided to come to the hospital for further workup and management. She also mentions having nausea but no vomiting. In the ED, patient's white blood cell was 12,000, with left shift. Hemoglobin was stable at 13 very similar to her baseline. Platelets were 196,000. Patient was worried that this is due to C. difficile which was sent on admission. C. diff came back positive for infection and confirmed. Patient was admitted here for further evaluation and management. Patient was started on IV Flagyl and oral vancomycin while here with improvement in her symptoms, she did experience anxiety and patient was given Ativan while here which she takes at home as well. Patient remained on p.o. vancomycin. She reports improvement in her bowel movements, reports that her stools are forming, reports that I would rather have loose BMS than constipation. Reports that it is not diarrhea anymore, denies any bright red blood per rectum. Patient has been tolerating Eliquis. Hemodynamically appeared to be stable, labs appear stable compared to prior. Patient appears hemodynamically stable for discharge at this time, will transition to oral vancomycin which prescription has been sent for her. Advised to follow-up with her PCP as outpatient. Discussed with patient at bedside, all questions answered, patient in agreement and comfortable with the plan. Patient has multiple complex medical issues as listed above and others that are not listed. All appear to be stable at this time. Patient is feeling significantly better and feeling comfortable with this plan of discharge. I do not have any clear or strong clinical justification to extend inpatient hospitalization. Patient however will require close and the frequent monitoring as well as additional work-up, investigation and therapeutic intervention that could take place from this point on post discharge. That is to prevent relapse, decompensation, rehospitalization and other medical implications. Outpatient follow up as directed for continuity of care. Verbal and written discharge instructions will be provided to the patient. Time Spent with Patient Time attestation: Total time spent providing and/or coordinating discharge services: Time spent: greater than 30 minutes Exam Narrative Exam Narrative: Const General: cooperative HEENT Normal oropharyngeal mucosa without any ulcers or exudates Eyes: Conjunctiva normal Pulmonary Auscultation: clear to auscultation , no crackles, no wheezes Cardiovascular Rate: normal rate Rhythm: regular rhythm Heart Sounds: S1 normal, S2 normal and no murmurs GI Inspection: non-distended Palpation: soft, not firm and nontender. No rigidity or rebound. Deferred Neuro General: alert, awake and oriented x3. No obvious new focal deficit Musculoskeletal: normal range of motion Extrem General: no cyanosis, no pedal edema Psych Appearance: appropriate affect. Grossly normal Constitutional Vital Signs, click to edit/add: Last Vital Signs Temp 97.7 F 06/06/25 07:44 Pulse 74 06/06/25 10:00 Resp 16 06/06/25 07:44 BP 164/80 H 06/06/25 07:44 Pulse Ox 94 L 06/06/25 07:44 O2 Del Method Room Air 06/06/25 07:44 DS: Data Data Completed and Pending Labs on day of discharge: Labs from last 24 hours 06/06/25 04:55 WBC 5.1 RBC 4.22 Hgb 12.7 Hct 39.0 MCV 92.4 MCH 30.1 MCHC 32.6 RDW 13.6 Plt Count 176 MPV 10.5 Neut % (Auto) 64.3 Lymph % (Auto) 16.8 L Mason % (Auto) 15.2 H Eos % (Auto) 2.7 Baso % (Auto) 0.6 Neut # (Auto) 3.3 Lymph # (Auto) 0.9 L Mason # (Auto) 0.8 Eos # (Auto) 0.1 Baso # (Auto) 0.0 Abs Immat Gran (auto) 0.02 Imm/Tot Granulo (auto) 0.4 Sodium 141 Potassium 4.0 Chloride 106 Carbon Dioxide 26.8 Anion Gap 12.2 BUN 7.0 Creatinine 0.65 Est GFR ( Amer) >60 Est GFR (Non-Af Amer) >60 BUN/Creatinine Ratio 10.8 Glucose 98 Calcium 8.9 Magnesium 1.9 Total Bilirubin 0.6 AST 50 H ALT 41 Alkaline Phosphatase 77 Total Protein 6.0 L Albumin 3.2 L Globulin 2.8 Albumin/Globulin Ratio 1.1 Discharge Plan Discharge Disposition: Home, Self-Care Condition: Good Discharge Medications: New vancomycin 50 mg/mL recon soln 125 mg PO Q6H 10 Days Qty: 100 0RF Continued Eliquis 5 mg tablet 5 mg PO BID carvedilol 6.25 mg tablet 6.25 mg PO BID atorvastatin 40 mg tablet 40 mg PO .QHS spironolactone 25 mg tablet 12.5 mg PO DAILY lorazepam 0.5 mg tablet 0.5 mg PO TID PRN (Reason: anxiety) famotidine 20 mg tablet 20 mg PO .QHS Activity: increase activity as tolerated Diet: advance to your usual diet Print Language: Dominican Patient Instructions: C. Diff (Clostridioides Difficile) Infection (DC), Colitis (ED) Forms: Portal Instructions Follow Up Appointments: [facility] @ [facility] 06/09/2025 @ 2:40 Dr Snehal Humphreys [phone] 06/09/2025 @ 9:20
--- NOTE | 2025-06-10 14:02 | CM.DCFOLLOWU ---
Person spoke with: Asya How are you feeling? Better How is your pain? Better Did you understand your discharge instructions? Yes Do you have any questions about your discharge instructions? No Were you given any prescriptions at discharge? Yes Were you able to get your prescriptions filled? Yes Do you understand how to take your medications as ordered? Yes Do you have any questions about your follow up appointment and do you plan to keep your follow up appointment? No questions. The patient was seen by Dr Brian and will follow up with [facility] on 06/18/2025. Is there anything else that you would like to discuss? No Questions/Comments/Concerns/Other:
== END 2025-06-06 11:42 | disposition home or self-care (01) | DRG 372 ==
LOC: ER 06-03 05:57 → MS 06-03 14:08
PROVIDERS: Student in an Organized Health Care Education/Training Program; Admitting Provider Internal Medicine; Emergency Provider Emergency Medicine; PCP Student in an Organized Health Care Education/Training Program; Visit Provider Internal Medicine
DX: A04.72 Enterocolitis due to Clostridium difficile, not specified as recurrent (principal); I50.22 Chronic systolic (congestive) heart failure; B34.9 Viral infection, unspecified; R30.0 Dysuria; Z87.440 Personal history of urinary (tract) infections; Z95.0 Presence of cardiac pacemaker; Z87.891 Personal history of nicotine dependence; Z79.01 Long term (current) use of 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s; Z98.890 Other specified postprocedural states; K64.8 Other hemorrhoids; R31.9 Hematuria, unspecified; F41.9 Anxiety disorder, unspecified; I48.91 Unspecified atrial fibrillation; Z90.710 Acquired absence of both cervix and uterus; Z95.818 Presence of other cardiac implants and grafts; Z79.899 Other long term (current) drug therapy
CPT/HCPCS: 36415; 51702; 71045; 74176; 74177; 80048; 80053; 81003; 83735; 84484; 85014; 85018; 85025; 87045; 87046; 87427; 87493; 87804; 87811; 93005; 97161; 97165; 99285; J0744; J0780; J1171; J1650; J1836; J2765; J3475; Q0162; Q9967